=== PATIENT | male | born 1955 | race Caucasian/White ===

== ENCOUNTER 2019-07-20 10:09 | Inpatient (IN) | payer MEDICARE, OTHER ==
[~2019-07-20] VITALS: Ht 180.3 cm; Wt 102.1 kg
--- OUTSIDE RECORDS SUMMARY | 2019-07-20 12:44 | XMS ---
PreManage Notification: NORAH GR Security Legal Activity Adjudicator Events No recent Security Events currently on file CRITERIA MET - 6 ED Visits in 6 Months - [facility] - Has Care Guidelines - [facility] - 2 Visits in 30 Days CARE PROVIDERS Name Unknown Senior Living Facility Current PHONE: [phone] HOLLY GALLAGHER Nurse Practitioner: Gerontology 04/07/2019-Current PHONE: Unknown Guidelines Source: [facility] Guidelines Date: 11/24/2018 Care Recommendation: This patient has presented to the ER with 5 or more visits during a certain time period. 1.If patient presents in the emergency for non-emergent issues. It may be appropriate for this patient to seek care at an Urgent Care Center instead of the Emergency Room, please offer this alternate plan to the patient and provide list of Urgent Care Clinics. 2. Educate patient regarding the proper use of the Emergency Room.\T\nbsp; Redirect patient to PCP for care that does not require the use of the Emergency Department. 3. The patient reports not having a PCP. Give the patient a list of PCPs or refer the patient to the registered nurse hh case manager in the ER to help coordinate services. 4. If the patient presents with any type of substance abuse issues please have the ER refer the patient to substance resources. Contact the registered nurse hh case manager in the ER to help with placement. 5. If the patient presents with mental health issues please refer the patient to mental health. Have the patient speak to the registered nurse hh case manager in the ER to coordinate services. \T\nbsp; 6. Pain/Opioid Agreement: Please use the [facility] Prescription Monitoring Program for specifics related to pt\T\rsquo;s use of narcotics medications.\T\nbsp; https://secureaccess.[place].gov 7.Additional Information: Please contact your facility\T\rsquo;s Case Management department if further intervention is needed in the care of this patient. E.D. VISIT COUNT (12 MO.) 2 [facility] 21 [facility] 7 [facility] [address] [place] TOTAL 32 NOTE: Visits indicate total known visits. ED/UCC VISIT TRACKING (12 MO.) 07/20/2019 10:10 [facility] [place] TYPE: Emergency COMPLAINT: - MULTIPLE COMPLAINTS 07/15/2019 12:14 [facility] TYPE: Emergency DIAGNOSES: - Diarrhea (Adult) - Noninfective gastroenteritis and colitis, unspecified - Type 2 diabetes mellitus with hyperglycemia - Failure to Thrive - Essential (primary) hypertension 07/06/2019 05:29 [facility] TYPE: Emergency DIAGNOSES: - Patient's other noncompliance with medication regimen - Hypertension - Urinary Complaint - Unspecified fall, initial encounter - Essential (primary) hypertension 07/03/2019 10:06 [facility]IP TYPE: Emergency DIAGNOSES: - Fever, unspecified - Chest Pain - Shortness of Breath - Fever (9 Weeks To 74 Years) - Sepsis, unspecified organism - Unspecified atrial fibrillation 05/15/2019 20:19 [facility] TYPE: Emergency DIAGNOSES: - Leg Deformity - Other abnormalities of gait and mobility - Contusion of right knee, initial encounter - 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 - Fall - Unspecified fall, initial encounter 05/13/2019 11:15 [facility] TYPE: Emergency DIAGNOSES: - High Blood Sugar (Symptomatic) - shelter (current) use of insulin - Type 2 diabetes mellitus with hyperglycemia 04/13/2019 20:40 [facility] TYPE: Emergency DIAGNOSES: - Other chest pain - Chest Pain - Type 2 diabetes mellitus with hyperglycemia - 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 04/13/2019 08:17 [facility] [place] [facility] TYPE: Emergency DIAGNOSES: - Hyperglycemia, unspecified - High Blood Sugar (Symptomatic) 04/04/2019 04:12 [facility] [place] [facility] TYPE: Emergency DIAGNOSES: - Chest pain, unspecified - Chest Pain 03/21/2019 17:09 [facility] [place] [facility] TYPE: Emergency DIAGNOSES: - Hemoptysis - Dizziness - Type 2 diabetes mellitus with hyperglycemia - 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 - Coughing Up Blood 02/01/2019 15:26 [facility] TYPE: Emergency COMPLAINT: - ELEVATED BLOOD SUGAR 02/01/2019 04:32 [facility] TYPE: Emergency COMPLAINT: - DIZZY 01/25/2019 06:53 [facility] [place] [facility] TYPE: Emergency DIAGNOSES: - Headache - Hypertension - Headache (Adult - New Onset Or New Symptoms) - Dizziness 01/10/2019 05:18 [facility] [place] [facility] TYPE: Emergency DIAGNOSES: - Diarrhea (Adult) - Headache (Adult - Recurrent Or Known Dx Migraines) - Hyperglycemia, unspecified - Dizziness and giddiness - Dizziness 01/09/2019 02:10 [facility] CHIP TYPE: Emergency COMPLAINT: - dizziness 01/03/2019 20:02 [facility] TYPE: Emergency DIAGNOSES: - Hyperglycemia, unspecified - Dizziness and giddiness - Unspecified injury of head, initial encounter - Dizziness - Unspecified fall, initial encounter 12/13/2018 21:45 [facility] TYPE: Emergency DIAGNOSES: - Chest Pain - Palpitations 12/12/2018 09:24 [facility] TYPE: Emergency DIAGNOSES: - Syncope - Unstable angina - Other specified abnormal findings of blood chemistry - Hypertensive urgency - Essential (primary) hypertension - Chest Pain - chest pain, syncope 12/01/2018 08:11 [facility] TYPE: Emergency DIAGNOSES: - Multiple Falls - Essential (primary) hypertension - Palpitations - Syncope and collapse 11/15/2018 10:52 [facility] [place] [facility] TYPE: Emergency DIAGNOSES: - Elevated Blood Sugar (Asymptomatic) - Hyperglycemia, unspecified - Constipation - Hypertension (Asymptomatic) - Slow transit constipation - Elevated blood-pressure reading, without diagnosis of hyperte Plus 12 More Visits INPATIENT VISIT TRACKING (12 MO.) 07/03/2019 10:06 [facility] TYPE: Internal Medicine DIAGNOSES: - Chronic obstructive pulmonary disease, unspecified - Unspecified atrial fibrillation - Unspecified lack of expected normal physiological development - Sepsis, unspecified organism - Bacteremia - Fever, unspecified - Type 2 diabetes mellitus with hyperglycemia 10/11/2018 18:01 [facility] TYPE: Internal Medicine DIAGNOSES: - shelter (current) use of 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 - shelter (current) use of insulin - Type 2 diabetes mellitus with hyperglycemia - Syncope and collapse - Allergy status to unspecified drugs, medicaments and biologic - Chest pain, unspecified - Other chest pain - Essential (primary) hypertension 09/13/2018 08:20 [facility] TYPE: General Medicine DIAGNOSES: - 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
[2019-07-20] MEDS ORDERED: HYDRALAZINE HCL25 MG PO (13:34)
[2019-07-20] MEDS ORDERED: PROCARDIA XL60 MG PO (13:36)
[2019-07-20] MEDS ORDERED: COREG6.25 MG PO (13:37)
[2019-07-20] MEDS ORDERED: HUMALOG100 UNIT/2 SUB-Q (13:41)
[2019-07-20] MEDS ORDERED: ABILIFY5 MG PO (13:42)
[2019-07-20] MEDS ORDERED: FLOMAX0.4 MG PO (13:43)
[2019-07-20] MEDS ORDERED: GLUCOPHAGE500 MG PO (13:44)
[2019-07-20] MEDS ORDERED: ZESTRIL40 MG PO ×2 (13:44→13:45)
[2019-07-20] MEDS ORDERED: LEVEMIR FL100 UNIT/2 SUB-Q (13:46)
[2019-07-20] MEDS ORDERED: OMEPRAZOLE20 MG PO (13:47)
[2019-07-20] MEDS ORDERED: ATORVASTATIN CA40 MG PO (13:48)
--- NOTE | 2019-07-20 13:50 | NUR ---
PATIENT ARRIVED TO CCU ROOM 127 VIA STRETCHER. PATIENT TOLERATED TRANSFERRING HIMSELF FROM THE STRETCHER TO THE BED. PATIENT ARRIVE WITHOUT DILTIAZEM GTT GOING YET. WILL START GTT. PATIENT REQUESTING TO ORDER LUNCH. NO OTHER NEEDS AT THIS TIME. WILL CONTINUE TO CLSOELY MONITOR.
--- NOTE | 2019-07-20 15:15 | NUR ---
PATIENTS DILTIAZEM GTT STOPPED AT THIS TIME D/T CONTROLLED HR IN THE 70'S. PATIENTS BLOOD PRESSURE 95/58 AT THIS TIME. WILL CONTINUE TO [facility] MONITOR.
--- NOTE | 2019-07-20 16:29 | NUR ---
CALLED MD KC. PATIENT HAD A 7.5 SECOND PAUSE WITH 1 BEAT INBETWEEN. PATIENT WAS SLEEPING DURING THIS INCIDENT. WOKE PATIENT HE DENEIS ANY ISSUES EXCEPT STILL FEELING WEAK JUST THE SAME WHEN HE WAS ADMITTED. PATIENT WAS TAKEN OFF THE DILTIAZEM GTT AT 1515 D/T HRS CONTROLLED IN THE 70'S AND PATIENTS BLOOD PRESSURE DECRESING TO THE 90'S SYTOLIC. ONCE OFF THE GTT HIS PRESSSURES WERE BACK TO THE 115'S SYSTOLIC. PATIENT ATE 100% OF HIS MEAL. PATIENT DENEIS ANY OTHER NEEDS AT THIS TIME. AWAITING NEW ORDERS. WILL CONTINUE TO CLOSELY MONITOR.
--- NOTE | 2019-07-20 16:41 | NUR ---
PATIENTS BLOOD SUGAR 238.
--- NOTE | 2019-07-20 17:56 | NUR ---
ASSISTED PATIENT UP TO THE BEDSIDE TO VOID. PATIENT STANDS WELL AND APPEARS STABLE WITH STAND-BY ASSIST. PATIENT BACK TO BED. DINNER ORDERED. NO OTHER NEEDS AT THIS TIME. WILL CONTINUE TO CLOSELY MONITOR.
--- NOTE | 2019-07-20 21:22 | NUR ---
IN TO SEE PT, AWAKENS EASILY BUT WILL FALL BACK TO SLEEP. BS 189, GIVEN HS 25UNITS LANTUS AND 4UN HUMULOG INSULIN. PT REQUESTED SANDWICH BUT FELL BACK TO SLEEP. HR 80-90'S.
--- NOTE | 2019-07-20 23:28 | NUR ---
AWAKENED FOR MEDS. DENIES NEED TO VOID AT THIS TIME. REQUESTING SANDWICH, GIVEN WITH SMALL GLASS JUICE.
--- NOTE | 2019-07-20 23:56 | NUR ---
CALLED NURSE, NEEDING VOID. STANDBY ASSSIST FOR PT TO STAND TO VOID. HAD BEEN INC OF URINE, ATTENDS CHANGED. ZAIDA WELL. READY TO GO BACK TO SLEEP.
--- NOTE | 2019-07-21 01:05 | NUR ---
HANDOFF REPORT RECEIVED FROM EVE NOGUERA, ASSUMED CARE OF pt.
--- NOTE | 2019-07-21 01:38 | NUR ---
pt RESTING IN BED WITH EYES CLOSED. SNORING. RR 16. LIGHTS OFF IN ROOM.
--- NOTE | 2019-07-21 01:51 | NUR ---
CALL LIGHT ANSWERED. C/O TONGUE SWELLING "I'M THIRSTY, NEED WATER". ICE WATER PROVIDED. NO FACIAL OR TONGUE SWELLING NOTED. pt DENIES SOB, NO DIFFICULTY SWALLOWING. CALL LIGHT IN REACH.
--- NOTE | 2019-07-21 04:06 | NUR ---
CALL LIGHT ANSWERED. DIET SPRITE PROVIDED. ASSESSMENT COMPLETE. pt AFEBRILE. DENIES TOILETING NEEDS. ATTENDS DRY. IVF INFUSING WNL ORDERED. CALL LIGHT IN REACH.
--- NOTE | 2019-07-21 05:38 | NUR ---
CALL LIGHT ANSWERED. SBA TO VOID AND BACK IN BED. ASSISTED TO REPOSITION. NO ADDITIONAL REQUESTS.
--- NOTE | 2019-07-21 06:14 | NUR ---
TOWN PLANNER IN pt ROOM. NEW BAG IVF INFUSING WNL ORDERED. BREAKFAST ORDER TAKEN. pt ON PHONE WITH GRANDMOTHER TOLD HER THAT HE IS AT [facility] FOR AFIB. HE TELLS THIS RN THAT HE WASN'T SUPPOSED TO BE IN [place] OR WITH HIS FRIEND THAT HAS LEFT HIM BEFORE. CALL LIGHT IN REACH. pt HAS NO ADDITIONAL REQUESTS AT THIS TIME.
--- NOTE | 2019-07-21 06:16 | NUR ---
pt RESTED WELL THIS SHIFT. APNIC BREATHING NOTED WITH SLEEP. SPO2 WNL ON RA. HR AFIB, RATE CONTROLLED. IVF INFUSING WNL ORDERED. SBA TO SIDE OF BED FOR QS VOIDS. ONE EPISODE OF INCONTINENCE OF URINE. NO BMS NOTED THIS SHIFT. CONTACT PRECUATIONS, CDIFF PENDING.
--- NOTE | 2019-07-21 07:30 | NUR ---
PATIENT SHIFT REPORT RECIEVED FROM RESEARCH QUALITY ASSURANCE ANALYST RN. PATIENT RESTING IN BED AT THIS TIME AND CALLS APPROPRIATELY. WILL CONTINUE TO CLOSELY MONITOR.
[2019-07-21] MEDS ORDERED: ELIQUIS5 MG PO (07:54)
--- NOTE | 2019-07-21 08:01 | NUR ---
Received text from Louie Jones. They are looking for transportation [facility] who was hospitalized after [place] and [place]. Suggested they try [place] transport, but I don't think they run on the weekend, call Mary [facility] Last and request auth for taxi transport to [place] which is around $100.00, or discharge to the street and allow him to find his own transportion. Sup states friends will not return and pick him up. I also suggested they [facility] as they may know someone who would be willing to transport or pay for transportion to [facility].
--- NOTE | 2019-07-21 08:30 | NUR ---
MD KC IN TO SEE PATIENT. PER MD KC PATIENT IS GOOD TO DISCHARGE HOME. WILL WORK ON PLAN TO DISCHARGE. PATIENT DENEIS ANY OTHER NEEDS AT THIS TIME. ASSESSMENT COMPLETED. PATIENT BREATH SOUNDS CLEAR AND PATIENT ON ROOM AIR. PATIENT BOWEL TONES ACTIVE. PATIENT DENIES SOB OR PALPITATIONS AND HIS HR IS WELL UNCONTROLLED AT THIS TIME. WILL CONTINUE TO CLOSELY MONITOR.
--- NOTE | 2019-07-21 10:30 | NUR ---
[facility] CONTINUING TO WORK ON DISCHARGE PLAN. NO OTHER NEEDS AT THIS TIME. WILL CONTINUE TO CLOSELY MONITOR.
[2019-07-21] MEDS ORDERED: VANCOCIN HCL125 MG PO (11:10)
--- NOTE | 2019-07-21 11:39 | EKG ---
[facility] [address] [facility] [place], [place] [address] Signed Atrial fibrillation with rapid ventricular response Moderate voltage criteria for LVH, may be normal variant ST \T\ T wave abnormality, consider inferolateral ischemia Abnormal ECG No previous ECGs available Confirmed by JAVY KC MD ([id number]) on 07/21/2019 11:39:41 AM Electronically Signed By: JAVY KC MD 07/21/19 1139 PATIENT NAME: GRNORAH Electrocardiogram DATE OF : 53 PHYSICIAN: JAVY KC MD REPORT #: [id number] REPORT IS CONFIDENTIAL AND NOT TO BE RELEASED WITHOUT AUTHORIZATION
--- NOTE | 2019-07-21 11:59 | NUR ---
THIS RN HAS BEEN WORKING ON PATIENTS DISCHARGE. PATIENT STATES HE HAS NO FAMILY OR FRIENDS TO GIVE HIM A RIDE HOME. STAFF AND GEOCHEMICAL LABORATORY TECHNICIAN HAVE TRIED ALL OPTIONS AND STAFF ARE UNABLE TO GET HIM BACK TO [place]. VIOLETA IS AGREEABLE TO GOING BACK TO THE [facility] AND TRY AND FIGURE OUT A RIDE HOME. WILL CONTINUE TO WOKR ON HIS DISCHARGE. NO OTHER NEEDS AT THIS TIME.
--- NOTE | 2019-07-21 13:00 | NUR ---
FULL REPORT RECIEVED FROM FINESSE PRADO, ALL QUESTIONS ANSWERED. PT CARE TRANSFERED TO THIS RN.
--- NOTE | 2019-07-21 13:12 | NUR ---
PATIENT IS DEVELOPLY DELAYED AND CARES FOR HIMSELF AT HOME ALLONG WITH THE HELP OF A CAREGIVER WHO COMES IN 3XWEEK [facility]ROUGH [facility] THE [facility]. CALLED RESIDENT PHYSICIAN IN RADIOLOGYPROMOTIONAL MARKETING ANALYST THIS AM AND THEY ARE UNABLE TO CROSS STATE LINES. PATIENT STATES "I HAVE NO MONEY TO GET HOME". IF I GO BACK TO [place] NO ONE CAN GET ME AND MY AFIB WILL GET OUT OF CONTROL AGAIN AND ILL BE BACK TO THE ER AGAIN". PATIENT FINALLY AGREED TO ALLOW STAFF TO TALK TO HIS "GRANDMA" AND SHE TOLD HIM HE GOT HIMSELF INTO THIS AND HE NEEDS TO GET HIMSELF OUT". NO ONE CAN COME GET HIM. HE WAS HERE GAMBLING AND HIS FRIEND LEFT HIM BECAUSE HE MADE HIM MAD. PATIENT HAS NO MEANS OF ACCESS TO GET HOME. SPOKE WITH THE PATIENT AND STATED WE WILL COVER A RIDE HOME FOR HIM THIS ONE AND ONLY TIME. PATIENT EDUCATED ON HIS SAFETY AND HE SHOULD NEVER LEAVE HOME WITHOUT HIS MEDICATIONS AND A SAFE RIDE HOME. PATIENT IS AGREEABLE TO PLAN OF CARE AND IS THANKFUL TO GET BACK HOME. ANNAMARIE PRADO WILL RESUME CARE AT THIS TIME AND GET HIM DISCHARGED.
--- NOTE | 2019-07-21 13:45 | NUR ---
DC'D BOTH PT IV SITES, TIPS OF CATH INTACT, SITES ARE WNL. PT DENIES PAIN AT EITHER SITE. PT DENIES PAIN, NAUSEA, AND SOB IN GENERAL. PT ASSISTED TO PUT ON HIS OWN CLOTHES. PT ASSISTED TO WHEELCHAIR. ALL PERSONAL BELONGINGS, DC INSTRUCTIONS, AND NEW PERSCRIPTION RETURNED TO PT. TOOK PT OUT TO THE FRONT WITH A [place] TICKET TO RIDE HOME TO [place]. PT ALERT AND ORIENTED X4, COOPERATIVE AND POLITE. PT LEFT WITH SECURITY STAFF TO ASSIST PT INTO [place] ONCE IT ARRIVES. GENIE IS ABLE AND WILLING TO HELP PT.
== END 2019-07-21 13:54 | disposition home or self-care (01) | DRG 309 ==
LOC: ED 10:09 → CCU 12:50
PROVIDERS: ADMIT Internal Medicine
DX: I48.21 Permanent atrial fibrillation (principal); A04.72 Enterocolitis due to Clostridium difficile, not specified as recurrent; E86.0 Dehydration; I10 Essential (primary) hypertension; E11.65 Type 2 diabetes mellitus with hyperglycemia; E78.5 Hyperlipidemia, unspecified; N40.0 Benign prostatic hyperplasia without lower urinary tract symptoms; G47.33 Obstructive sleep apnea (adult) (pediatric); K21.9 Gastro-esophageal reflux disease without esophagitis; R62.50 Unspecified lack of expected normal physiological development in childhood; F32.9 Major depressive disorder, single episode, unspecified; Z20.828 Contact with and (suspected) exposure to other viral communicable diseases; Z88.8 Allergy status to other drugs, medicaments and biological substances; Z79.01 Long term (current) use of 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; Z91.19 Patient's noncompliance with other medical treatment and regimen; Z86.73 Personal history of transient ischemic attack (TIA), and cerebral infarction without residual deficits; Z86.711 Personal history of pulmonary embolism; Z79.4 Long term (current) use of insulin; Z79.899 Other long term (current) drug therapy
CPT/HCPCS: 51701; 80053; 81001; 83036; 83630; 83690; 83735; 85025; 85610; 85730; 87045; 87046; 87177; 87209; 87324; 87449; 87493; 93005; 93010; 99285-25; C9803; G0480; J1815; J3475; J7030; J7121; U0002

== ENCOUNTER 2019-09-09 22:28 | Emergency (ER) | payer MEDICARE ==
[~2019-09-09] VITALS: Ht 180.3 cm; Wt 96.2 kg
--- OUTSIDE RECORDS SUMMARY | ~2019-09-09 | XMS | Encounter Summary ---
Demographics + + + | Address | [address] | | | [place] [address] | + + + | Home Phone | | + + + | Preferred Language | Unknown | + + + | Marital Status | | + + + | Christian Affiliation | 1027 | + + + | Race | Unknown | + + + | Ethnic Group | Unknown | + + + Author + + + | Author | [facility] | | | and [place] | + + + | Organization | [facility] | | | and [place] | + + + | Address | Unknown | + + + | Phone | Unavailable | + + + Support + + + + + | Name | Relationship | Address | Phone | + + + + + | Sammi Kohler | ECON | [place] [address] | | + + + + + Care Team Providers + +------+ + | Care Operations Asst Name | Role | Phone | + +------+ + | Holly Pack NP | PCP | | + +------+ + Reason for Visit + + + | Reason | Comments | + + + | Chest Pain | | + + + | Urinary Frequency | | + + + Encounter Details +--------+ + + + + | Date | Type | Department | Care Team | Description | +--------+ + + + + | 09/06/ | Emergency | [facility] | Breanne Hurtado, | Chest discomfort | | 2019 | | MEDICAL CENTER | DO [address] | (Primary Dx); | | | | EMERGENCY CENTER | [place] [address] | Urinary frequency; | | | | [address] | [phone] | Type 2 diabetes | | | | [place], [place] | | mellitus with | | | | [address] | | hyperglycemia, with | | | | [phone] | | long-term current | | | | | | use of insulin (HCC) | +--------+ + + + + Social History + +-------+ +--------+------+ | Tobacco Use | Types | Packs/Day | Years | Date | | | | | Used | | + +-------+ +--------+------+ | Never Smoker | | | | | + +-------+ +--------+------+ + +---+---+---+ | Smokeless Tobacco: | | | | | Never Used | | | | + +---+---+---+ + + +---------+ + | Alcohol Use | Drinks/Week | oz/Week | Comments | + + +---------+ + | Not Currently | | | Alcoholic | | | | | Drinks/day: | | | | | occassional | + + +---------+ + + + + | Sex Assigned at | Date Recorded | | | | + + + | Not on file | | + + + documented as of this encounter Last Filed Vital Signs + + + + + | Vital Sign | Reading | Time Taken | Comments | + + + + + | Blood Pressure | 202/88 | 09/07/2019 9:00 AM | | | | | PDT | | + + + + + | Pulse | 85 | 09/07/2019 9:00 AM | | | | | PDT | | + + + + + | Temperature | 36.3 C (97.4 F) | 09/07/2019 6:37 AM | | | | | PDT | | + + + + + | Respiratory Rate | 26 | 09/07/2019 9:00 AM | | | | | PDT | | + + + + + | Oxygen Saturation | 95% | 09/07/2019 9:00 AM | | | | | PDT | | + + + + + | Inhaled Oxygen | - | - | | | Concentration | | | | + + + + + | Weight | 100.7 kg (222 lb) | 09/07/2019 6:37 AM | | | | | PDT | | + + + + + | Height | 180.3 cm (5' 11") | 09/07/2019 6:37 AM | | | | | PDT | | + + + + + | Body Mass Index | 30.96 | 09/07/2019 6:37 AM | | | | | PDT | | + + + + + documented in this encounter Functional Status + + + + | Functional Status | Response | Date of Assessment | + + + + | Are you deaf or do you have serious | No | 07/23/2019 | | difficulty hearing? | | | + + + + | Are you blind or do you have serious | No | 07/23/2019 | | difficulty seeing, even when wearing | | | | glasses? | | | + + + + | Do you have serious difficulty walking or | No | 07/23/2019 | | climbing stairs? (5 years old or older) | | | + + + + | Do you have difficulty dressing or bathing? | No | 07/23/2019 | | (5 years old or older) | | | + + + + | Because of a physical, mental, or emotional | Yes | 07/23/2019 | | condition, do you have difficulty doing | | | | errands alone such as visiting a doctor's | | | | office or shopping? [15 years old or | | | | older)] | | | + + + + + + + + | Cognitive Status | Response | Date of Assessment | + + + + | Because of a physical, mental, or emotional | Yes | 07/23/2019 | | condition, do you have serious difficulty | | | | concentrating, remembering, or making | | | | decisions? (5 years old or older) | | | + + + + documented as of this encounter Discharge Instructions AttachmentsThe following attachments cannot be sent through Care Everywhere.Diabetes, Long- Term Complications (Sammarinese)Chest Pain, Uncertain Cause (Sammarinese)documented in this encounte r Medications at Time of Discharge + + + +---------+ + + | Medication | Sig | Dispensed | Refills | Start | End Date | | | | | | Date | | + + + +---------+ + + | albuterol 90 | Inhale 2 puffs into | 1 | 0 | 08/21/19 | | | mcg/puff | the lungs every 6 | Inhaler | | 20 | | | inhalerIndications: | hours as needed for | | | | | | Chronic obstructive | Wheezing. | | | | | | pulmonary disease, | | | | | | | unspecified COPD | | | | | | | type ([facility]) | | | | | | + + + +---------+ + + | ARIPiprazole | TAKE ONE TABLET BY | 90 | 3 | 09/09/19 | | | (ABILIFY) 5 mg | MOUTH DAILY | tablet | | 20 | | | tablet | | | | | | + + + +---------+ + + | atorvaSTATin | Take 1 tablet by | 30 | 11 | 12/27/19 | | | (LIPITOR) 40 mg | mouth nightly. | tablet | | 19 | | | tabletIndications: | | | | | | | Type 2 diabetes | | | | | | | mellitus with | | | | | | | diabetic | | | | | | | polyneuropathy, with | | | | | | | long-term current | | | | | | | use of insulin ([facility]) | | | | | | + + + +---------+ + + | Blood Glucose | Dispense brand per | 1 each | 0 | 04/18/19 | | | Monitoring Suppl | patient preference | | | 20 | | | (BLOOD GLUCOSE | | | | | | | MONITOR SYSTEM) | | | | | | | w/Device | | | | | | | KITIndications: Type | | | | | | | 2 diabetes mellitus | | | | | | | with diabetic | | | | | | | polyneuropathy, with | | | | | | | long-term current | | | | | | | use of insulin (HCC) | | | | | | + + + +---------+ + + | Blood Pressure | Dispense as | 1 each | 0 | 06/04/19 | | | KITIndications: | insurance allows to | | | 20 | | | Essential | check Blood Pressure | | | | | | hypertension | one time daily each | | | | | | | day. | | | | | + + + +---------+ + + | | Inhale 2 puffs into | 1 | 0 | 08/21/19 | | | budesonide-formotero | the lungs 2 times | Inhaler | | 20 | 1 | | l (SYMBICORT) | daily. | | | | | | 160-4.5 mcg/puff | | | | | | | inhalerIndications: | | | | | | | Chronic obstructive | | | | | | | pulmonary disease, | | | | | | | unspecified COPD | | | | | | | type ([facility]) | | | | | | + + + +---------+ + + | docusate-senna | Take 2 tablets by | 60 | 0 | 07/26/19 | | | (SENOKOT-S) 50-8.6 | mouth 2 times daily | tablet | | 20 | | | mg per tablet | | | | | | + + + +---------+ + + | Glucose Blood | For blood sugar | 400 | 3 | 04/18/19 | | | (BLOOD GLUCOSE TEST | testing 4 times | each | | 20 | | | STRIPS) | daily | | | | | | STRPIndications: | | | | | | | Type 2 diabetes | | | | | | | mellitus with | | | | | | | diabetic | | | | | | | polyneuropathy, with | | | | | | | long-term current | | | | | | | use of insulin (HCC) | | | | | | + + + +---------+ + + | hydrALAZINE | Take 1 tablet by | 60 | 11 | 08/21/19 | | | (APRESOLINE) 25 mg | mouth 2 times daily. | tablet | | 20 | | | tabletIndications: | | | | | | | Essential | | | | | | | hypertension | | | | | | + + + +---------+ + + | insulin detemir | Inject 45 Units | 12 mL | 3 | 05/30/19 | | | (LEVEMIR FLEXTOUCH) | under the skin | | | 20 | | | 100 units/mL | nightly. | | | | | | injection | | | | | | | (pen)Indications: | | | | | | | Type 2 diabetes | | | | | | | mellitus with | | | | | | | hyperglycemia, with | | | | | | | long-term current | | | | | | | use of insulin (HCC) | | | | | | + + + +---------+ + + | insulin lispro | Inject 20 Units | 12 mL | 3 | 05/30/19 | | | (HUMALOG KWIKPEN) | under the skin 3 | | | 20 | | | 100 units/mL | times daily (with | | | | | | injection | meals). | | | | | | (pen)Indications: | | | | | | | Type 2 diabetes | | | | | | | mellitus with | | | | | | | hyperglycemia, with | | | | | | | long-term current | | | | | | | use of insulin (HCC) | | | | | | + + + +---------+ + + | Insulin Pen Needle | For insulin | 400 | 3 | 07/23/19 | | | (BD PEN NEEDLE KYAW | administration 4 | each | | 20 | | | U/F) 32G X 4 MM | times daily | | | | | | MISCIndications: | | | | | | | Type 2 diabetes | | | | | | | mellitus with | | | | | | | diabetic | | | | | | | polyneuropathy, with | | | | | | | long-term current | | | | | | | use of insulin (HCC) | | | | | | + + + +---------+ + + | Lancets (ACCU-CHEK | 1 each by Other | 400 | 3 | 04/18/19 | | | MULTICLIX) | route 4 times daily. | each | | 20 | | | MISCIndications: | | | | | | | Type 2 diabetes | | | | | | | mellitus with | | | | | | | hyperglycemia, with | | | | | | | long-term current | | | | | | | use of insulin (HCC) | | | | | | + + + +---------+ + + | lisinopril | Take 1 tablet by | 30 | 11 | 03/27/19 | | | (PRINIVIL,ZESTRIL) | mouth Daily. | tablet | | 20 | | | 40 MG tablet | | | | | | + + + +---------+ + + | meclizine | Take 25 mg by mouth | | 0 | | | | (ANTIVERT) 25 mg | as needed. | | | | | | tablet | | | | | | + + + +---------+ + + | metoprolol | TAKE ONE TABLET BY | 180 | 3 | 09/09/19 | | | succinate | MOUTH TWICE DAILY | tablet | | 20 | | | (TOPROL-XL) 50 mg 24 | | | | | | | hr tablet | | | | | | + + + +---------+ + + | NIFEdipine (ADALAT | Take 1 tablet by | | 0 | 07/22/19 | | | CC) 60 MG 24 hr | mouth Daily. | | | 20 | | | tablet | | | | | | + + + +---------+ + + | psyllium, sugar | Take 1 packet by | | 0 | 08/21/19 | | | free, (METAMUCIL | mouth Daily. | | | 20 | | | FIBER) | | | | | | | packetIndications: | | | | | | | Irregular bowel | | | | | | | habits | | | | | | + + + +---------+ + + | warfarin | Take by mouth Daily | | 0 | | | | (COUMADIN) 5 mg | 7.5 mg every Mon, | | | | | | tablet | Mon; 5 mg all | | | | | | | other days . | | | | | + + + +---------+ + + | warfarin | Take 1 tab po daily | 30 | 11 | 08/07/19 | | | (COUMADIN) 5 mg | or as directed by | tablet | | 20 | | | tabletIndications: | coumadin clinic | | | | | | Longstanding | based on INR. | | | | | | persistent atrial | | | | | | | fibrillation (HCC) | | | | | | + + + +---------+ + + | ARIPiprazole | Take 1 tablet by | 30 | 4 | 05/18/19 | | | (ABILIFY) 5 mg | mouth Daily. | tablet | | 20 | 0 | | tablet | | | | | | + + + +---------+ + + | metoprolol | Take 1 tablet (50 mg | 60 | 0 | 07/26/19 | | | succinate | total) by mouth 2 | tablet | | 20 | 0 | | (TOPROL-XL) 50 mg 24 | times daily | | | | | | hr tablet | | | | | | + + + +---------+ + + documented as of this encounter ED Notes Nara Vera RN - 09/07/2019 8:30 AM PDTMD notified of BP prior to discharging roberto ent. Hydralazine will be ordered. Breanne Barber DO - 09/07/2019 6:45 AM PDT [facility] Department of Emergency Medicine 09/08/2019 6:45 AM PDT No flowsheet data found. History of Present Illness Patient Identification Norah Guzman is a 63 y.o. male. Patient information was obtained from patient History/Exam limitations: none. Patient presented to the Emergency Department by: Ambulance ([id number]) Chief Complaint Chief Complaint Patient presents with Chest Pain Urinary Frequency 63 y.o. male with history of DM, stroke and pulmonary embolism on Coumadin presents to the ED complaining of chest pain as well as urinary frequency. Onset of symptoms was about 2 we eks ago, with a waxing and waning course since that time. The patient describes the symptoms as moderate. The patient reports drinking fluids worsens symptoms, and nothing improves sym ptoms. He feels like he cannot empty his bladder fast enough. Care prior to arrival consis tasia of rest, with no relief. The patient also complains of chest discomfort, mild shortness of breath and palpitations w hich she has had for about a month. Patient denies lightheadedness, back pain, fevers, sore throat or cough. The patient lives in his own apartment and has caregivers come to his home 3 times a week. He eats he is allowed no more than 4-1/2 hours of nursing/caregiver monitoring per week. PCP: Holly Pack NP Past Medical History: Diagnosis Date Acute pulmonary embolism ([facility]) 10/14/2017 Anxiety ARF (acute renal failure) ([facility]) 03/02/2013 Atrial fibrillation (HCC) Basal cell carcinoma 09/26/2012 arm and back COPD (chronic obstructive pulmonary disease) ([facility]) 03/02/2013 hypoxemia on 2 lts nc Depression Development delay Diabetes mellitus type II DVT (deep venous thrombosis) ([facility]) 03/29/2018 Facial droop 07/08/2013 GIB (gastrointestinal bleeding) 03/02/[address] Nur, rectal ulcers, nodule of GE junction Hypercholesterolemia 07/08/2013 Hyperlipidemia Hypertension shelter (current) use of 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 Obesity, Class I, BMI 30-34.9 07/08/2013 WARD (obstructive sleep apnea) 08/11/2012 does not use CPAP because of the noise Other chronic pain Renal failure Stroke (HCC) TIA (transient ischemic attack) Unspecified visual disturbance reading glasses Past Surgical History: Procedure Laterality Date ABDOMEN SURGERY CHOLECYSTECTOMY CHOLECYSTECTOMY, LAPAROSCOPIC 09/12/2012 Procedure: LAPAROSCOPIC - CHOLECYSTECTOMY; Surgeon: Jevon Vargas DO; Location: [facility] MAIN OR; Service: General; 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; COLONOSCOPY COLONOSCOPY 03/04/2013 Procedure: COLONOSCOPY; Surgeon: Howie Gibson MD; Location: [facility] ENDOSCOPY; Service: Gastroen terology; 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; HERNIA REPAIR 07/03/2013 Procedure: LAPAROSCOPIC - HERNIA - INCISIONAL; Surgeon: Jevon Vargas DO; Location: [facility] MAIN OR; Service: General; 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; KNEE SURGERY rt knee, patella LEG SURGERY LLE OTHER SURGICAL HISTORY UNLISTED PROCEDURE ARTHROSCOPY OTHER SURGICAL HISTORY Left 05/05/2014 SKIN LESION EXCISION - Procedure: EXCISION - LESION - FROZEN SECTION; Surgeon: Sy murcia MD; Location: [facility] MAIN OR; Service: Plastics; Laterality: Left; forearm SKIN BIOPSY SKIN CANCER EXCISION Left 10/10/2012 Procedure: EXCISION - SKIN CANCER; Surgeon: Sy Fierro MD; Location: [facility] MAIN OR; Service: Plastics; Laterality: Left; upper arm and upper back w/frozen section UPPER GASTROINTESTINAL ENDOSCOPY UPPER GASTROINTESTINAL ENDOSCOPY 03/03/2013 Procedure: ESOPHAGOGASTRODUODENOSCOPY; Surgeon: Howie Gibson MD; Location: [facility] ENDOSCOPY; Se rvice: Gastroenterology; 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; Prior to Admission medications Medication Sig Taking? albuterol 90 mcg/puff inhaler Inhale 2 puffs into the lungs every 6 hours as needed for Whe ezing. ARIPiprazole (ABILIFY) 5 mg tablet Take 1 tablet by mouth Daily. atorvaSTATin (LIPITOR) 40 mg tablet Take 1 tablet by mouth nightly. Blood Glucose Monitoring Suppl (BLOOD GLUCOSE MONITOR SYSTEM) w/Device KIT Dispense brand p patient preference Blood Pressure KIT Dispense as insurance allows to check Blood Pressure one time daily each day. budesonide-formoterol (SYMBICORT) 160-4.5 mcg/puff inhaler Inhale 2 puffs into the lungs 2 times daily. docusate-senna (SENOKOT-S) 50-8.6 mg per tablet Take 2 tablets by mouth 2 times daily Glucose Blood (BLOOD GLUCOSE TEST STRIPS) STRP For blood sugar testing 4 times daily hydrALAZINE (APRESOLINE) 25 mg tablet Take 1 tablet by mouth 2 times daily. insulin detemir (LEVEMIR FLEXTOUCH) 100 units/mL injection (pen) Inject 45 Units under the skin nightly. insulin lispro (HUMALOG KWIKPEN) 100 units/mL injection (pen) Inject 20 Units under the ski n 3 times daily (with meals). Insulin Pen Needle (BD PEN NEEDLE KYAW U/F) 32G X 4 MM MISC For insulin administration 4 ti mes daily Lancets (ACCU-CHEK MULTICLIX) MISC 1 each by Other route 4 times daily. lisinopril (PRINIVIL,ZESTRIL) 40 MG tablet Take 1 tablet by mouth Daily. meclizine (ANTIVERT) 25 mg tablet Take 25 mg by mouth as needed. metoprolol succinate (TOPROL-XL) 50 mg 24 hr tablet Take 1 tablet (50 mg total) by mouth 2 times daily NIFEdipine (ADALAT CC) 60 MG 24 hr tablet Take 1 tablet by mouth Daily. psyllium, sugar free, (METAMUCIL FIBER) packet Take 1 packet by mouth Daily. warfarin (COUMADIN) 5 mg tablet Take by mouth Daily 7.5 mg every Mon, Wed, Fri; 5 mg all ot her days . warfarin (COUMADIN) 5 mg tablet Take 1 tab po daily or as directed by coumadin clinic based on INR. Allergies Allergen Reactions Nitroglycerin Swelling Tongue swelling Vitamin B12 Rash Rash Immunization History Administered Date(s) Administered INFLUENZA 65 Y OR >, TRIVALENT HIGH-DOSE 11/07/2018 INFLUENZA PF QUAD(PED/ADOL/ADULT),PSKT or VIAL 12/16/2014, 02/07/2018 INFLUENZA PF TRIVALENT(PED/ADOL/ADULT), PSKT 11/09/2011, 10/28/2016 INFLUENZA TRIV W/PRES(PED/ADOL/ADULT),MULTIDOSE 11/15/2013 PNEUMOCOCCAL CONJUGATE 13-VALENT (PCV13) 11/07/2018 TDAP, (ADOL/ADULT) 12/16/2014 Social History Socioeconomic History Marital status: Spouse name: Not on file Number of children: 1 Years of education: s. college Highest education level: Not on file Occupational History Not on file Social Needs Financial resource strain: Not on file Food insecurity Worry: Not on file Inability: Not on file Transportation needs Medical: Not on file Non-medical: Not on file Tobacco Use Smoking status: Never Smoker Smokeless tobacco: Never Used Substance and Sexual Activity Alcohol use: Not Currently Comment: Alcoholic Drinks/day: occassional Drug use: Never Comment: Drug use: No Sexual activity: Not on file Lifestyle Physical activity Days per week: Not on file Minutes per session: Not on file Stress: Not on file Relationships Social connections Talks on phone: Not on file Gets together: Not on file Attends quaker service: Not on file Active member of club or organization: Not on file Attends meetings of clubs or organizations: Not on file Relationship status: Not on file Intimate partner violence Fear of current or ex partner: Not on file Emotionally abused: Not on file Physically abused: Not on file Forced sexual activity: Not on file Other Topics Concern Not on file Social History Narrative Lives alone x 1 wk, moved from [facility], , 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 2 falls in the last 6 months. Family History Problem Relation Age of Onset Heart disease Father Heart disease Sister Diabetes, NIDDM Sister Other (see comment) Brother Heart Problems Review of Systems (limited due to developmental delay, simple speech with a lisp) constitutional: Negative for fever, chills Negative for fatigue Eyes: Negative for vision changes or photophobia Nose: Negative for congestion Throat: Negative for sore throat or swelling CV/Resp: Positive positive for chest pain Positive for [id number] Negative for cough GI: Positive for abdominal pain Negative for nausea Negative for vomiting Negative for constipation Negative for diarrhea Negative for black or bloody stools : Positive for urinary frequency Positive for pain with urination Musculoskeletal: Negative for back pain Negative for neck pain or stiffness. Skin: Negative for rash Neuro/Psych: Negative for headache All other systems reviewed and negative except as noted. Physical Exam Temp: 36.3 C (97.4 F) Pulse: 81 SpO2: 97 % Resp: 18 BP: (!) 189/93 Vital signs interpretation: Blood pressure General: Alert, in no apparent distress. He does not appear to be in any pain. HEENT: Normal inspection, PERRLA, non-icteric, EOM's intact Ears normal Nose normal Pharynx normal, mucous membranes are moist. Neck: Normal inspection Supple, no lymphadenopathy Non-tender to palpation. Cardiovascular: Rate normal, rhythm normal No murmurs, clicks or rubs Heart sounds are easily auscultated Chest non-tender to palpation Respiratory: Normal work of breathing Breath sounds equal bilaterally No rales, wheezing or rhonchi Abdomen: Soft, obese, mildly distended, mild lower abdominal tenderness. Non-distended Normal bowel sounds No guarding or rebound No masses. No pulsatile masses. Back: Normal inspection, no CVA tenderness or spinal tenderness Skin: Color normal Warm and dry No rash Extremities: No swelling or pitting edema. No calf tenderness or palpable cords. Neuro: Alert, no AMS, speech is clear. CN II-XII intact No gross motor/sensory deficits Medical Decision Making and Emergency Department Course ED Department Course Well-appearing patient with multiple complaints will screen for ACS, dysrhythmia, anemia, e lectrolyte abnormality, urinary tract infection among others. His condition is stable at th is time. Medications hydrALAZINE (APRESOLINE) injection 20 mg (20 mg Intravenous Given 09/07/19 0845) Medical Decision Making as of Sep 07 1901 Sat Sep 07, 2019 0910 Hyperglycemic but not in DKA Glucose(!): 269 Discharge Patient reevaluation. Patient is stable and feeling better at this time. He has eaten and has no complaints currently. I discussed all ED results and my clinical impression with th e patient. We discussed the emergent signs and symptoms that would necessitate a return to ED. The patient voices understanding and agrees with the plan will follow-up with his PCP AP for further outpatient testing as deemed necessary. All questions and concerns addressed to the best of my ability. The patient agrees to return to the ED immediately if any probl ems or concerns. Records Reviewed Nursing notes were reviewed for chief complaint, medications, clinical presentation and vi nicole signs. Old ED records were reviewed as available (Using the electronic record system of [facility], with regard to the past medical/surgical history, previous medications, and all ergies). Laboratory Evaluation Results Procedure Component Value Ref Range Date/Time B Type Natriuretic Peptide [[id number]] Collected: 09/07/19724 Order Status: Completed Specimen: Blood Updated: 09/07/19 0801 BNP 34.86 0 - 100 pg/mL Comprehensive Metabolic Panel [[id number]] (Abnormal) Collected: 09/07/19725 Order Status: Completed Specimen: Blood Updated: 09/07/19 0759 Na 139 135 - 145 mmol/L K 3.5 3.5 - 4.9 mmol/L Cl 105 99 - 109 mmol/L CO2 26 23 - 32 mmol/L Anion Gap 12 5 - 20 mmol/L Glucose 269 65 - 99 mg/dL BUN 13 8 - 25 mg/dL Creatinine 0.90 0.70 - 1.30 mg/dL BUN/Creatinine Ratio 14 Calcium 9.1 8.5 - 10.5 mg/dL Protein, Total 6.8 6.3 - 8.2 g/dL Albumin 3.9 3.3 - 4.8 g/dL Globulin 2.9 1.3 - 4.9 g/dL A/G Ratio 1.3 1.0 - 2.4 BILIRUBIN, TOTAL 0.7 0.1 - 1.5 mg/dL ALK PHOS 150 35 - 115 U/L AST 18 10 - 45 U/L ALT 17 10 - 65 U/L Estimated GFR >60 >60 mL/min/1.73m2 Troponin I [[id number]] Collected: 09/07/19725 Order Status: Completed Specimen: Blood Updated: 09/07/19758 Troponin I 0.019 0.00 - 0.04 ng/mL Protime INR [[id number]] Collected: 09/07/19725 Order Status: Completed Specimen: Blood Updated: 09/07/19753 INR 2.2 PTT [[id number]] (Abnormal) Collected: 09/07/19725 Order Status: Completed Specimen: Blood Updated: 09/07/19753 PTT 34 23 - 32 seconds Urinalysis With Microscopic [[id number]] (Abnormal) Collected: 09/07/19730 Order Status: Completed Specimen: Urine Updated: 09/07/19744 Color, UA YELLOW Clarity, Urine CLEAR Specific Mission, Urine 1.020 1.002 - 1.030 Leukocyte esterase, UA NEGATIVE NEG Nitrite, UA NEGATIVE NEG Urobilinogen, Ur NORMAL <1.6 mg/dL Protein, Urine (mg/dL) NEGATIVE NEG mg/dL pH, Urine 5.0 5.0 - 8.0 Blood, UA NEGATIVE NEG Ketones, UA NEGATIVE NEG mg/dL Bilirubin, UA NEGATIVE NEG Glucose, Ur >500 NEG mg/dL WBC UA 3-5 0 - 5 /hpf Red Blood Cells, Urine NONE SEEN 0 - 2 /hpf Squamous Epithelial Cells, Urine NONE SEEN /lpf Bacteria, Urine NONE SEEN NONE Mucus, Urine 1+ CBC with Differential [[id number]] (Abnormal) Collected: 09/07/19725 Order Status: Completed Specimen: Blood Updated: 09/07/19739 WBC 10.14 3.80 - 11.00 K/uL Red Blood Cells 5.52 4.20 - 5.70 M/uL Hemoglobin 14.6 13.2 - 17.0 g/dL Hematocrit 44.9 39.0 - 50.0 % MCV 81.3 80.0 - 100.0 fl MCH 26.4 27.0 - 34.0 pg MCHC 32.5 32.0 - 35.5 g/dL RDW-SD 43.0 37 - 53 fl Platelet Count 245 150 - 400 K/uL MPV 9.8 fl Diff Type AUTOMATED % nRBC 0.0 0 /100WBC % Neutrophils 50.50 % IMMATURE GRANULOCYTE 0.40 % % Lymphocytes 37.40 % Monocyte % 8.50 % Eosinophils % 3.00 % Basophils % 0.20 % Neutrophils, Absolute 5.13 1.90 - 7.40 K/uL IMMATURE GRANS AB 0.04 0.00 - 0.07 K/uL Absolute Lymphocytes 3.79 1.00 - 3.90 K/uL Absolute Monocytes 0.86 0.00 - 0.80 K/uL Eosinophils, Absolute 0.30 0.00 - 0.50 K/uL Basophils, Absolute 0.02 0.00 - 0.10 K/uL I personally reviewed the lab results and they have been posted to the chart. Pertinent po sitive and negative findings have been addressed appropriately. EKG and Radiology Evaluation EKG performed at 0641 Normal Sinus Rhythm 86 bpm. Normal axis Intervals normal No significant ST segment abnormalities T waves are slightly inverted in leads III and aVF No acute ischemia. Interpreted by me at time of service Imaging Results XR Chest AP Portable (Final result) Result time 09/07/19 07:15:42 Final result by Gilberto Ji MD (09/07/19 07:15:42) Impression: No acute cardiopulmonary disease. Final Report Signed by: Irina Ji, Gilberto Sign Date/Time: 09/07/2019 7:15 AM Narrative: CHEST PORTABLE ONE VIEW CLINICAL INFORMATION: Chest pain, urinary infrequency. COMPARISON: XR CHEST PA AND LATERAL (08/06/2019); XR CHEST AP PORTABLE (07/23/2019); CT ANGIOGRAM PULMONARY W CONTRAST (07/03/2019); FINDINGS: Lung volumes are adequate. No confluent consolidation or pleural effusion. No pneumothorax. Acute chain with a house cues overlies the mediastinum, otherwise cardiomediastinal silhouette unremarkable. Pulmonary vascularity within normal limits. No acute osseous abnormality. Diagnosis: 1. Chest discomfort 2. Urinary frequency 3. Type 2 diabetes mellitus with hyperglycemia, with long-term current use of insulin (HCC) Disposition: ED Disposition ED Disposition Condition Comment Discharge Good Follow-up Information Holly Pack NP. Schedule an appointment as soon as possible for a visit in 1 week. Specialty: Nurse Practitioner - Gerontology Contact information: [address] [facility] [address] [facility] [address] [facility]. Specialty: Emergency Medicine Why: If symptoms worsen, As needed Contact information: Darrick Jenkins [facility] [id number] This chart has in part been created using [email or web address] Speech Recognition software. The c abbott has been reviewed and there may still exist sound alike word errors. Breanne Hurtado DO Procedures Breanne Hurtado DO 09/08/191901 Germaine Mcdermott RN - 09/07/2019 6:33 AM PDTBed: ED03 Expected date: Expected time: Means of arrival: Comments: 1721 documented in th is encounter Plan of Treatment +--------+---------+ + + + | Date | Type | Specialty | Care Team | Description | +--------+---------+ + + + | 09/10/ | Office | Geriatric Medicine | Holly Pack, | | 2019 | Visit | | CISTERN ROOM 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 [address] | | | | | | [place] [address] [place], | | | | | | [place] [address] | | | | | | [phone] | | | | | | | | +--------+---------+ + + + | 09/29/ | Office | Urology | Holly Pack, | | | 2019 | Visit | | CISTERN ROOM 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 [address] | | | | | | [place] [place], | | | | | | [place] [address] | | | | | | [phone] | | | | | | | | | | | | Toy Wild, DO | | | | | | [address] | | | | | | [place] [address] | | | | | | [phone] | | | | | | | | +--------+---------+ + + + + +------+--------+ + + | Name | Type | Priori | Associated Diagnoses | Date/Time | | | | ty | | | + +------+--------+ + + | ED INFORMATION | COLTON | Routin | | 09/07/2019 6:33 AM | | EXCHANGE | | e | | PDT | + +------+--------+ + + documented as of this encounter Procedures + +--------+ + + + | Procedure Name | Priori | Date/Time | Associated Diagnosis | Comments | | | ty | | | | + +--------+ + + + | ARRHYTHMIA MONITOR - | | 09/08/2019 | | Results for this | | EXTERNAL SCAN | | 12:00 AM | | procedure are in the | | | | PDT | | results section. | + +--------+ + + + | URINALYSIS WITH | STAT | 09/07/2019 | | Results for this | | MICROSCOPIC | | 7:31 AM | | procedure are in the | | | | PDT | | results section. | + +--------+ + + + | TROPONIN I | STAT | 09/07/2019 | | Results for this | | | | 7:26 AM | | procedure are in the | | | | PDT | | results section. | + +--------+ + + + | PTT | STAT | 09/07/2019 | | Results for this | | | | 7:26 AM | | procedure are in the | | | | PDT | | results section. | + +--------+ + + + | PROTIME INR | STAT | 09/07/2019 | | Results for this | | | | 7:26 AM | | procedure are in the | | | | PDT | | results section. | + +--------+ + + + | CBC WITH | STAT | 09/07/2019 | | Results for this | | DIFFERENTIAL | | 7:26 AM | | procedure are in the | | | | PDT | | results section. | + +--------+ + + + | COMPREHENSIVE | STAT | 09/07/2019 | | Results for this | | METABOLIC PANEL | | 7:26 AM | | procedure are in the | | | | PDT | | results section. | + +--------+ + + + | B TYPE NATRIURETIC | STAT | 09/07/2019 | | Results for this | | PEPTIDE | | 7:25 AM | | procedure are in the | | | | PDT | | results section. | + +--------+ + + + | XR CHEST AP PORTABLE | STAT | 09/07/2019 | | Results for this | | | | 7:09 AM | | procedure are in the | | | | PDT | | results section. | + +--------+ + + + | ECG 12 LEAD | Routin | 09/07/2019 | | Results for this | | | e | 6:41 AM | | procedure are in the | | | | PDT | | results section. | + +--------+ + + + | ED INFORMATION | Routin | 09/07/2019 | | | | EXCHANGE | e | 6:33 AM | | | | | | PDT | | | + +--------+ + + + +---+--------+ | | | | | Proced | | | ure | | | Note - | | | Richard, | | | Lab In | | | | | | Hlseve | | | n - | | | 09/06/ | | | 2019 | | | 6:34 | | | AM PDT | | | | | | Format | | | ting | | | of | | | this | | | note | | | might | | | be | | | differ | | | ent | | | from | | | the | | | origin | | | al.COL | | | LECTIV | | | E?NOTI | | | FICATI | | | ON?/ | | | | | | 0 | | | 06:33? | | | SIMÓN, | | | NORAH | | | | | | M?MRN: | | | | | | [id number] | | | [id number] | | | riteri | | | a Met | | | | | | Medica | | | id 5 | | | in 12 | | | 10 in | | | 12 | | | PDMP | | | Care | | | Guidel | | | inesSe | | | curity | | | and | | | Safety | | | No | | | recent | | | | | | Securi | | | ty | | | Events | | | | | | curren | | | tly on | | | | | | fileED | | | Care | | | Guidel | | | andrei | | | from | | | [facility] | | | | | | Region | | | al | | | Medica | | | l | | | Center | | | Last | | | Update | | | d: | | | 10/18/ | | | 19 | | | 6:09 | | | PM | | | Care | | | Recomm | | | endati | | | on:Thi | | | s | | | patien | | | t has | | | presen | | | tasia to | | | the | | | ER | | | with 5 | | | or | | | more | | | visits | | | | | | during | | | a | | | certai | | | n time | | | | | | period | | | .1.If | | | patien | | | t | | | presen | | | ts in | | | the | | | emerge | | | ncy | | | for | | | non-em | | | ergent | | | | | | issues | | | . It | | | may be | | | | | | approp | | | riate | | | for | | | this | | | patien | | | t to | | | seek | | | care | | | at an | | | Urgent | | | Care | | | Center | | | | | | instea | | | d of | | | the | | | Emerge | | | ncy | | | Room, | | | please | | | offer | | | this | | | altern | | | ate | | | plan | | | to the | | | | | | patien | | | t and | | | provid | | | e list | | | of | | | Urgent | | | Care | | | Clinic | | | s.2. | | | Educat | | | e | | | patien | | | t | | | regard | | | ing | | | the | | | proper | | | use | | | of the | | | | | | Emerge | | | ncy | | | Room.? | | | | | | Redire | | | ct | | | patien | | | t to | | | PCP | | | for | | | care | | | that | | | does | | | not | | | requir | | | e the | | | use of | | | the | | | Emerge | | | ncy | | | Depart | | | ment.3 | | | . The | | | patien | | | t | | | report | | | s not | | | having | | | a | | | PCP. | | | Give | | | the | | | patien | | | t a | | | list | | | of | | | PCPs | | | or | | | refer | | | the | | | patien | | | t to | | | the | | | case | | | manage | | | r in | | | the ER | | | to | | | help | | | coordi | | | ann | | | servic | | | es.4. | | | If the | | | | | | patien | | | t | | | presen | | | ts | | | with | | | any | | | type | | | of | | | substa | | | nce | | | abuse | | | issues | | | | | | please | | | have | | | the ER | | | refer | | | the | | | patien | | | t to | | | substa | | | nce | | | resour | | | harrison. | | | Contac | | | t the | | | case | | | manage | | | r in | | | the ER | | | to | | | help | | | with | | | placem | | | ent.5. | | | If | | | the | | | patien | | | t | | | presen | | | ts | | | with | | | mental | | | | | | health | | | | | | issues | | | | | | please | | | refer | | | the | | | patien | | | t to | | | mental | | | | | | health | | | . Have | | | the | | | patien | | | t | | | speak | | | to the | | | case | | | manage | | | r in | | | the ER | | | to | | | coordi | | | ann | | | servic | | | es. | | | ?6. | | | Pain/O | | | pioid | | | Agreem | | | ent: | | | Please | | | use | | | the [place] | | | State | | | RADHA | | | Prescr | | | iption | | | | | | Monito | | | ring | | | Progra | | | m for | | | specif | | | ics | | | relate | | | d to | | | pt?s | | | use of | | | | | | narcot | | | ics | | | medica | | | tions. | | | ? | | | https: | | | //secu | | | reacce | | | ss.[place]. | | | gov7.A | | | dditio | | | nal | | | Inform | | | ation: | | | | | | Please | | | | | | contac | | | t your | | | | | | facili | | | ty?s | | | Case | | | Manage | | | ment | | | depart | | | ment | | | if | | | furthe | | | r | | | interv | | | ention | | | is | | | needed | | | in | | | the | | | care | | | of | | | this | | | patien | | | t.Thes | | | e are | | | guidel | | | andrei | | | and | | | the | | | provid | | | er | | | should | | | | | | exerci | | | se | | | clinic | | | al | | | judgme | | | nt | | | when | | | provid | | | ing | | | care.P | | | rescri | | | ption | | | Drug | | | Report | | | (12 | | | Mo.)Rx | | | | | | Detail | | | sFill | | | Date | | | Drug | | | Descri | | | ption | | | Qty. | | | Prescr | | | iber | | | CS MED | | | | | | 2020-0 | | | 4-17 | | | HYDROC | | | ODONE- | | | ACETAM | | | IN | | | 5-325 | | | MG 30 | | | [place] | | | A | | | [place] | | | O 2 50 | | | | | | 2020-0 | | | 4-16 | | | HYDROC | | | ODONE- | | | ACETAM | | | IN | | | 5-325 | | | MG 8 | | | CRISTO | | | PIRYAN | | | I 2 40 | | | | | | 2020-0 | | | 4-11 | | | HYDROC | | | ODONE- | | | ACETAM | | | IN | | | 5-325 | | | MG 22 | | | CRISTO | | | PIRYAN | | | I 2 | | | 36.667 | | | | | | 2020-0 | | | 4-11 | | | HYDROC | | | ODONE- | | | ACETAM | | | IN | | | 5-325 | | | MG 22 | | | CRISTO | | | PIRYAN | | | I 2 | | | 36.667 | | | | | | 2019-0 | | | 9-10 | | | LORAZE | | | ANKUR | | | 0.5 MG | | | | | | TABLET | | | 27 | | | NORAH | | | LUISA | | | EVANGE | | | LISTA | | | 4 0 Rx | | | | | | [place] | | | yMetri | | | c | | | Count | | | CS | | | II-V | | | Rx 5 | | | CS-II | | | Rx 4 | | | Quanti | | | ty | | | Dispen | | | sed | | | 109 | | | Unique | | | | | | Prescr | | | ibers | | | 3 | | | Unique | | | | | | Pharma | | | cies 2 | | | | | | Benzos | | | 1 | | | Opioid | | | s 4 | | | Long | | | Acting | | | | | | Opioid | | | s 0 | | | E.D. | | | Visit | | | Count | | | (12 | | | mo.)Fa | | | cility | | | | | | Visits | | | Low | | | Acuity | | | [facility] | | | | | | [facility] | | | idge | | | Hospit | | | al 1 0 | | | | | | [facility] | | | | | | Region | | | al | | | Medica | | | l | | | Center | | | 24 0 | | | [place] | | | s | | | Medica | | | l | | | Center | | | 3 0 | | | [facility] | | | sd | | | Commun | | | ity | | | Hospit | | | al 1 0 | | | [facility] | [place] | | | y | | | Hospit | | | al 1 0 | | | Total | | | 30 0 | | | Note: | | | Visits | | | | | | indica | | | te | | | total | | | known | | | visits | | | . | | | Medica | | | id Low | | | | | | Acuity | | | Dx | | | are | | | the | | | number | | | of | | | primar | | | y | | | diagno | | | ses on | | | the | | | Medica | | | id's | | | Low | | | Acuity | | | dx | | | list. | | | | | | Recent | | | | | | Emerge | | | ncy | | | Depart | | | ment | | | Visit | | | [place] | | | yShowi | | | ng 10 | | | most | | | recent | | | | | | visits | | | out | | | of 30 | | | in the | | | past | | | 12 | | | months | | | Date | | | Facili | | | ty | | | City | | | State | | | Type | | | Diagno | | | ses or | | | Chief | | | | | | Compla | | | int | | | Aug 1, | | | 2020 | | | [facility] | | | | | | [facility] | | | al | | | [facility] | | | [place] | | | [place] | | | Emerge | | | ncy | | | Chest | | | Pain | | | | | | Urinar | | | y | | | Freque | | | ncy | | | [place] | | | 30, | | | 2020 | | | [facility] | | | | | | Region | | | al | | | [facility] | | | [place] | | | [place] | | | Emerge | | | ncy | | | Chest | | | Pain | | | | | | Other | | | insomn | | | ia | | | Hyperg | | | lycemi | | | a, | | | unspec | | | ified | | | | | | Unspec | | | ified | | | atrial | | | | | | fibril | | | lation | | | | | | Essent | | | ial | | | (prima | | | ry) | | | hypert | | | ension | | | [place] | | | 16, | | | 2020 | | | [facility] | | | | | | Region | | | al | | | [facility] | | | [place] | | | [place] | | | Emerge | | | ncy | | | Heart | | | | | | Palpit | | | ations | | | [place] | | | 13, | | | 2020 | | | [facility] | [place] | | | [facility] | | | [place] | | | [place] | | | Emerge | | | ncy | | | Chief | | | Compla | | | int: | | | MULTIP | | | LE | | | COMPLA | | | INTS | | | [place] 8, | | | 2020 | | | [facility] | | | | | | Region | | | al | | | [facility] | | | [place] | | | [place] | | | Emerge | | | ncy | | | | | | Diarrh | | | ea | | | (Adult | | | ) | | | Failur | | | e to | | | Thrive | | | | | | Noninf | | | ective | | | | | | gastro | | | enteri | | | tis | | | and | | | coliti | | | s, | | | unspec | | | ified | | | | | | Type 2 | | | | | | diabet | | | es | | | mellit | | | us | | | with | | | hyperg | | | lycemi | | | a | | | Essent | | | ial | | | (prima | | | ry) | | | hypert | | | ension | | | May | | | 30, | | | 2020 | | | [facility] | | | | | | [facility] | | | al | | | [facility] | | | [place] | | | [place] | | | Emerge | | | ncy | | | | | | Hypert | | | ension | | | | | | Urinar | | | y | | | Compla | | | int | | | | | | Patien | | | t's | | | other | | | noncom | | | plianc | | | e with | | | | | | medica | | | tion | | | regime | | | n | | | Unspec | | | ified | | | fall, | | | initia | | | l | | | encoun | | | ter | | | | | | Essent | | | ial | | | (prima | | | ry) | | | hypert | | | ension | | | May | | | 27, | | | 2020 | | | [facility] | | | | | | [facility] | | | al | | | [facility] | | | [place] | | | [place] | | | Emerge | | | ncy | | | | | | Shortn | | | ess of | | | | | | Breath | | | | | | Fever | | | (9 | | | Weeks | | | To 73 | | | Years) | | | | | | Chest | | | Pain | | | | | | Sepsis | | | , | | | unspec | | | ified | | | organi | | | sm | | | Fever, | | | | | | unspec | | | ified | | | | | | Unspec | | | ified | | | atrial | | | | | | fibril | | | lation | | | Apr | | | 8, | | | 2020 | | | [facility] | | | | | | [facility] | | | al | | | [facility] | | | [place] | | | [place] | | | Emerge | | | ncy | | | Leg | | | Deform | | | ity | | | Fall | | | | | | Contus | | | ion of | | | right | | | knee, | | | | | | initia | | | l | | | encoun | | | ter | | | Long | | | term | | | (curre | | | nt) | | | use of | | | | | | antico | | | agulan | | | ts | | | Unspec | | | ified | | | fall, | | | initia | | | l | | | encoun | | | ter | | | Other | | | | | | abnorm | | | alitie | | | s of | | | gait | | | and | | | mobili | | | ty | | | Apr 6, | | | 2020 | | | [facility] | | | | | | [facility] | | | al | | | [facility] | | | [place] | | | [place] | | | Emerge | | | ncy | | | High | | | Blood | | | Sugar | | | (Sympt | | | omatic | | | ) | | | Long | | | term | | | (curre | | | nt) | | | use of | | | | | | insuli | | | n | | | Type 2 | | | | | | diabet | | | es | | | mellit | | | us | | | with | | | hyperg | | | lycemi | | | a Mar | | | 7, | | | 2020 | | | [facility] | | | | | | [facility] | | | al | | | [facility] | | | [place] | | | [place] | | | Emerge | | | ncy | | | Chest | | | Pain | | | | | | Other | | | chest | | | pain | | | Type | | | 2 | | | diabet | | | es | | | mellit | | | us | | | with | | | hyperg | | | lycemi | | | a | | | Long | | | term | | | (curre | | | nt) | | | use of | | | | | | insuli | | | n | | | Recent | | | | | | Inpati | | | ent | | | Visit | | | [facility] | | | yDate | | | Facili | | | ty | | | City | | | State | | | Type | | | Diagno | | | ses or | | | Chief | | | | | | Compla | | | int | | | [place] | | | 16, | | | 2020 | | | [facility] | | | | | | [facility] | | | al | | | [facility] | | | [place] | | | [place] | | | Genera | | | l | | | Medici | | | ne | | | Heart | | | Palpit | | | ations | | | | | | Weakne | | | ss | | | Pneumo | | | nitis | | | due to | | | | | | inhala | | | tion | | | of | | | food | | | and | | | vomit | | | | | | Paroxy | | | smal | | | atrial | | | | | | fibril | | | lation | | | [place] | | | 13, | | | 2020 | | | [facility] | | | [place] | | | [facility] | | | [place] | | | [place] | | | Critic | | | al | | | Care | | | | | | Entero | | | coliti | | | s due | | | to | | | Clostr | | | idium | | | diffic | | | ile, | | | not | | | specif | | | ied as | | | | | | Long | | | term | | | (curre | | | nt) | | | use of | | | | | | antico | | | agulan | | | ts | | | [place] | | | ent | | | atrial | | | | | | fibril | | | lation | | | | | | Person | | | al | | | histor | | | y of | | | transi | | | ent | | | ischem | | | ic | | | attack | | | | | | (TIA), | | | and | | | cere | | | | | | Contac | | | t with | | | and | | | (suspe | | | cted) | | | exposu | | | re to | | | other | | | viral | | | commun | | | ic | | | Unspec | | | ified | | | lack | | | of | | | expect | | | ed | | | normal | | | | | | physio | | | logica | | | l | | | develo | | | pment | | | | | | Hyperl | | | ipidem | | | ia, | | | unspec | | | ified | | | | | | Patien | | | t's | | | noncom | | | plianc | | | e with | | | other | | | | | | medica | | | l | | | treatm | | | ent | | | and | | | pop | | | | | | Benign | | | | | | prosta | | | tic | | | hyperp | | | lasia | | | withou | | | t | | | lower | | | urinar | | | y | | | tract | | | symp | | | | | | Person | | | al | | | histor | | | y of | | | pulmon | | | ankur | | | emboli | | | sm | | | May | | | 27, | | | 2020 | | | [facility] | | | | | | [facility] | | | al | | | [facility] | | | [place] | | | [place] | | | [employer] Agent | | | al | | | Medici | | | ne | | | Chroni | | | c | | | obstru | | | ctive | | | pulmon | | | ankur | | | diseas | | | e, | | | unspec | | | ified | | | | | | Unspec | | | ified | | | atrial | | | | | | fibril | | | lation | | | | | | Unspec | | | ified | | | lack | | | of | | | expect | | | ed | | | normal | | | | | | physio | | | logica | | | l | | | develo | | | pment | | | | | | Sepsis | | | , | | | unspec | | | ified | | | organi | | | sm | | | Bacter | | | emia | | | | | | Fever, | | | | | | unspec | | | ified | | | | | | Type 2 | | | | | | diabet | | | es | | | mellit | | | us | | | with | | | hyperg | | | lycemi | | | a Sep | | | 5, | | | 2019 | | | [facility] | | | | | | [facility] | | | al | | | [facility] | | | [place] | | | [place] | | | Engineering Agent | | | al | | | Medici | | | ne | | | Long | | | term | | | (curre | | | nt) | | | use of | | | | | | antico | | | agulan | | | ts | | | Long | | | term | | | (curre | | | nt) | | | use of | | | | | | insuli | | | n | | | Type 2 | | | | | | diabet | | | es | | | mellit | | | us | | | with | | | hyperg | | | lycemi | | | a | | | Syncop | | | e and | | | collap | | | se | | | Allerg | | | y | | | status | | | to | | | unspec | | | ified | | | drugs, | | | | | | medica | | | ments | | | and | | | biolog | | | ic | | | Chest | | | pain, | | | unspec | | | ified | | | | | | Other | | | chest | | | pain | | | | | | Essent | | | ial | | | (prima | | | ry) | | | hypert | | | ension | | | Aug | | | 8, | | | 2019 | | | [facility] | | | | | | [facility] | | | al | | | [facility] | | | [place] | | | [place] | | | Genera | | | l | | | Medici | | | ne | | | Long | | | term | | | (curre | | | nt) | | | use of | | | | | | insuli | | | n | | | Unspec | | | ified | | | atrial | | | | | | fibril | | | lation | | | | | | Essent | | | ial | | | (prima | | | ry) | | | hypert | | | ension | | | | | | Type 2 | | | | | | diabet | | | es | | | mellit | | | us | | | with | | | hyperg | | | lycemi | | | a | | | Care | | | TeamPr | | | ovider | | | | | | Specia | | | lty | | | Phone | | | Fax | | | Servic | | | e | | | Dates | | | Unknow | | | n | | | Skille | | | d | | | Nursin | | | g | | | Facili | | | ty | | | ([phone]) | | | [phone] | | | 95 | | | Curren | | | t | | | [place] | | | O, | | | [place], | | | CISTERN RO[employer] 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 | | | Nurse | | | Practi | | | tioner | | | : | | | Geront | | | ology | | | | | | Curren | | | t | | | [facility] | | | tive | | | Portal | | | This | | | patien | | | t has | | | regist | | | ered | | | at the | | | | | | [facility] | | | | | | Region | | | al | | | Medica | | | l | | | Center | | | | | | Emerge | | | ncy | | | Depart | | | ment | | | For | | | more | | | inform | | | ation | | | visit: | | | | | | https: | | | //secu | | | re.col | | | lectiv | | | emedic | | | al.com | | | /notif | | | [id number] | | | [id number] | | | [phone] | | | [phone] | | | [phone] | | | [phone] | | | 03 | | | PLEASE | | | NOTE: | | | 1. | | | Any | | | care | | | recomm | | | endati | | | ons | | | and | | | other | | | clinic | | | al | | | inform | | | ation | | | are | | | provid | | | ed as | | | guidel | | | andrei | | | or for | | | | | | histor | | | ical | | | purpos | | | es | | | only, | | | and | | | provid | | | ers | | | should | | | | | | exerci | | | se | | | their | | | own | | | clinic | | | al | | | judgme | | | nt | | | when | | | provid | | | ing | | | care. | | | 2. | | | You | | | may | | | only | | | use | | | this | | | inform | | | ation | | | for | | | purpos | | | es of | | | treatm | | | ent, | | | paymen | | | t or | | | health | | | care | | | operat | | | ions | | | activi | | | ties, | | | and | | | subjec | | | t to | | | the | | | limita | | | tions | | | of | | | applic | | | able | | | [facility] | | | tive | | | Polici | | | es. | | | 3. | | | You | | | should | | | | | | consul | | | t | | | direct | | | ly | | | with | | | the | | | organi | | | zation | | | that | | | provid | | | ed a | | | care | | | guidel | | | ine or | | | other | | | | | | clinic | | | al | | | histor | | | y with | | | any | | | questi | | | ons | | | about | | | additi | | | onal | | | inform | | | ation | | | or | | | accura | | | cy or | | | comple | | | teness | | | of | | | inform | | | ation | | | provid | | | ed.? | | | 2020 | | | [employer] | | | tive | | | [employer] | | | l | | | [employer] | | | logies | | | , [employer] | | | - | | | [email or web address] | | | llecti | | | vemedi | | | [email or web address] | | | m | +---+--------+ documented in this encounter Results ARRHYTHMIA MONITOR - EXTERNAL SCAN (09/08/2019 12:00 AM PDT) + + + | Narrative | Performed At | + + + | Ordered by an | | | unspecified provider. | | + + + Urinalysis With Microscopic (09/07/2019 7:31 AM PDT) + + + + + + | Component | Value | Ref Range | Performed | Pathologist | | | | | At | Signature | + + + + + + | Color, UA | YELLOW | | [facility] | | | | | | LABORATORY | | + + + + + + | Clarity, | CLEAR | | [facility] | | | Urine | | | LABORATORY | | + + + + + + | Specific | 1.020 | 1.002 - 1.030 | [facility] | | | [facility], | | | LABORATORY | | | Urine | | | | | + + + + + + | Leukocyte | NEGATIVE | NEG | [facility] | | | esterase, | | | LABORATORY | | | UA | | | | | + + + + + + | Nitrite, UA | NEGATIVE | NEG | [facility] | | | | | | LABORATORY | | + + + + + + | Urobilinoge | NORMAL | <1.6 mg/dL | [facility] | | | n, Ur | | | LABORATORY | | + + + + + + | Protein, | NEGATIVE | NEG mg/dL | [facility] | | | Urine | | | LABORATORY | | | (mg/dL) | | | | | + + + + + + | pH, Urine | 5.0 | 5.0 - 8.0 | [facility] | | | | | | LABORATORY | | + + + + + + | Blood, UA | NEGATIVE | NEG | [facility] | | | | | | LABORATORY | | + + + + + + | Ketones, UA | NEGATIVE | NEG mg/dL | [facility] | | | | | | LABORATORY | | + + + + + + | Bilirubin, | NEGATIVE | NEG | [facility] | | | UA | | | LABORATORY | | + + + + + + | Glucose, Ur | >500 (A) | NEG mg/dL | [facility] | | | | | | LABORATORY | | + + + + + + | WBC UA | 3-5 | 0 - 5 /hpf | [facility] | | | | | | LABORATORY | | + + + + + + | Red Blood | NONE SEEN | 0 - 2 /hpf | [facility] | | | Cells, | | | LABORATORY | | | Urine | | | | | + + + + + + | Squamous | NONE SEEN | /lpf | [facility] | | | Epithelial | | | LABORATORY | | | Cells, | | | | | | Urine | | | | | + + + + + + | Bacteria, | NONE SEEN | NONE | [facility] | | | Urine | | | LABORATORY | | + + + + + + | Mucus, | 1+Comment: Testing | | [facility] | | | Urine | performed at [facility];[address] | | LABORATORY | | | | [address];[place] | | | | | | [id number] | | | | + + + + + + + + | Specimen | + + | Urine | + + + + + + + | Performing | Address | City/State/Zipcode | Phone Number | | Organization | | | | + + + + + | [facility] | [address] | [place] [address] | [phone] | + + + + + Troponin I (09/07/2019 7:26 AM PDT) + + + + + + | Component | Value | Ref Range | Performed | Pathologist | | | | | At | Signature | + + + + + + | Troponin I | 0.019Comment: 0.04 | 0.00 - 0.04 | [facility] | | | | ng/mL or less | ng/mL | LABORATORY | | | | Negative, repeat | | | | | | testing in four to six | | | | | | hour ifclinically | | | | | | indicted0.05 to 0.77 | | | | | | ng/mL | | | | | | Suspicious for | | | | | | myocardial injury. | | | | | | Serial measurementsmay | | | | | | be necessary to confirm | | | | | | or exclude the diagnosis | | | | | | of acute | | | | | | coronarysyndrome. Repeat | | | | | | testing in four to six | | | | | | hours if indicated.0.78 | | | | | | or greater ng/mL | | | | | | Consistent with | | | | | | myocardial injury. | | | | | | Clinical andlaboratory | | | | | | correlation recommended. | | | | | | Testing performed at | | | | | | [facility];[address];[place] [address] | | | | + + + + + + + + | Specimen | + + | Blood | + + + + + + + | Performing | Address | City/State/Zipcode | Phone Number | | Organization | | | | + + + + + | [facility] | [address] | [place] [address] | [phone] | + + + + + PTT (09/07/2019 7:26 AM PDT) + + + + + + | Component | Value | Ref Range | Performed | Pathologist | | | | | At | Signature | + + + + + + | PTT | 34 (H)Comment: Testing | 23 - 32 seconds | [facility] | | | | performed at [facility];[address] | | LABORATORY | | | | [address];[place], [place] | | | | | | [address] | | | | + + + + + + + + | Specimen | + + | Blood | + + + + + + + | Performing | Address | City/State/Zipcode | Phone Number | | Organization | | | | + + + + + | [facility] | [address] | [place] [address] | [phone] | + + + + + Protime INR (09/07/2019 7:26 AM PDT) + + + + + + | Component | Value | Ref Range | Performed | Pathologist | | | | | At | Signature | + + + + + + | INR | 2.2Comment: REFERENCE | | [facility] | | | | RANGE:0.9 - 1.2 | | LABORATORY | | | | NON-ANTICOAGULATED2.0 | | | | | | - 3.0 ALL OTHER | | | | | | THERAPEUTIC | | | | | | INDICATIONS2.5 - 3.5 | | | | | | MECHANICAL HEART VALVES, | | | | | | RECURRENT OR SYSTEMIC | | | | | | EMBOLISMTesting | | | | | | performed at [facility] | | | | | | [facility];[place], [place] | | | | | | [address] | | | | + + + + + + + + | Specimen | + + | Blood | + + + + + + + | Performing | Address | City/State/Zipcode | Phone Number | | Organization | | | | + + + + + | [facility] | [address] | [place] [address] | [phone] | + + + + + Comprehensive Metabolic Panel (09/07/2019 7:26 AM PDT) + + + + + + | Component | Value | Ref Range | Performed | Pathologist | | | | | At | Signature | + + + + + + | Na | 139 | 135 - 145 | [facility] | | | | | mmol/L | LABORATORY | | + + + + + + | K | 3.5 | 3.5 - 4.9 | [facility] | | | | | mmol/L | LABORATORY | | + + + + + + | Cl | 105 | 99 - 109 mmol/L | [facility] | | | | | | LABORATORY | | + + + + + + | CO2 | 26 | 23 - 32 mmol/L | [facility] | | | | | | LABORATORY | | + + + + + + | Anion Gap | 12 | 5 - 20 mmol/L | [facility] | | | | | | LABORATORY | | + + + + + + | Glucose | 269 (H) | 65 - 99 mg/dL | [facility] | | | | | | LABORATORY | | + + + + + + | BUN | 13 | 8 - 25 mg/dL | [facility] | | | | | | LABORATORY | | + + + + + + | Creatinine | 0.90 | 0.70 - 1.30 | [facility] | | | | | mg/dL | LABORATORY | | + + + + + + | BUN/Creatin | 14 | | [facility] | | | ine Ratio | | | LABORATORY | | + + + + + + | Calcium | 9.1 | 8.5 - 10.5 | [facility] | | | | | mg/dL | LABORATORY | | + + + + + + | Protein, | 6.8 | 6.3 - 8.2 g/dL | [facility] | | | Total | | | LABORATORY | | + + + + + + | Albumin | 3.9 | 3.3 - 4.8 g/dL | [facility] | | | | | | LABORATORY | | + + + + + + | Globulin | 2.9 | 1.3 - 4.9 g/dL | [facility] | | | | | | LABORATORY | | + + + + + + | A/G Ratio | 1.3 | 1.0 - 2.4 | [facility] | | | | | | LABORATORY | | + + + + + + | BILIRUBIN, | 0.7 | 0.1 - 1.5 mg/dL | [facility] | | | TOTAL | | | LABORATORY | | + + + + + + | ALK PHOS | 150 (H) | 35 - 115 U/L | [facility] | | | | | | LABORATORY | | + + + + + + | AST | 18 | 10 - 45 U/L | [facility] | | | | | | LABORATORY | | + + + + + + | ALT | 17 | 10 - 65 U/L | [facility] | | | | | | LABORATORY | | + + + + + + | Estimated | >60Comment: GFR <60: | >60 | [facility] | | | GFR | CHRONIC KIDNEY DISEASE, | mL/min/1.73m2 | LABORATORY | | | | IF FOUND OVER A 3 MONTH | | | | | | PERIOD.GFR <15: KIDNEY | | | | | | FAILURE.FOR | | | | | | AMERICANS, MULTIPLY THE | | | | | | CALCULATED GFR BY | | | | | | 1.210.This eGFR is | | | | | | calculated using the | | | | | | MDRD IDMS traceable | | | | | | equation.Testing | | | | | | performed at [facility] | | | | | | [facility];[place], [place] | | | | | | [address] | | | | + + + + + + + + | Specimen | + + | Blood | + + + + + + + | Performing | Address | City/State/Zipcode | Phone Number | | Organization | | | | + + + + + | [facility] | [address] | [place] [address] | [phone] | + + + + + CBC with Differential (09/07/2019 7:26 AM PDT) + + + + + + | Component | Value | Ref Range | Performed | Pathologist | | | | | At | Signature | + + + + + + | WBC | 10.14 | 3.80 - 11.00 | [facility] | | | | | K/uL | LABORATORY | | + + + + + + | Red Blood | 5.52 | 4.20 - 5.70 | [facility] | | | Cells | | M/uL | LABORATORY | | + + + + + + | Hemoglobin | 14.6 | 13.2 - 17.0 | [facility] | | | | | g/dL | LABORATORY | | + + + + + + | Hematocrit | 44.9 | 39.0 - 50.0 % | [facility] | | | | | | LABORATORY | | + + + + + + | MCV | 81.3 | 80.0 - 100.0 fl | [facility] | | | | | | LABORATORY | | + + + + + + | MCH | 26.4 (L) | 27.0 - 34.0 pg | [facility] | | | | | | LABORATORY | | + + + + + + | MCHC | 32.5 | 32.0 - 35.5 | [facility] | | | | | g/dL | LABORATORY | | + + + + + + | RDW-SD | 43.0 | 37 - 53 fl | [facility] | | | | | | LABORATORY | | + + + + + + | Platelet | 245 | 150 - 400 K/uL | [facility] | | | Count | | | LABORATORY | | + + + + + + | MPV | 9.8Comment: NO NORMAL | fl | [facility] | | | | RANGE ESTABLISHED | | LABORATORY | | + + + + + + | Diff Type | AUTOMATED | | [facility] | | | | | | LABORATORY | | + + + + + + | % nRBC | 0.0 | 0 /100WBC | [facility] | | | | | | LABORATORY | | + + + + + + | % | 50.50 | % | [facility] | | | Neutrophils | | | LABORATORY | | + + + + + + | IMMATURE | 0.40 | % | [facility] | | | GRANULOCYTE | | | LABORATORY | | + + + + + + | % | 37.40 | % | [facility] | | | Lymphocytes | | | LABORATORY | | + + + + + + | Monocyte % | 8.50 | % | [facility] | | | | | | LABORATORY | | + + + + + + | Eosinophils | 3.00 | % | [facility] | | | % | | | LABORATORY | | + + + + + + | Basophils % | 0.20 | % | [facility] | | | | | | LABORATORY | | + + + + + + | Neutrophils | 5.13 | 1.90 - 7.40 | [facility] | | | , Absolute | | K/uL | LABORATORY | | + + + + + + | IMMATURE | 0.04Comment: NOTE NEW | 0.00 - 0.07 | [facility] | | | GRANS AB | REFERENCE RANGE | K/uL | LABORATORY | | + + + + + + | Absolute | 3.79 | 1.00 - 3.90 | [facility] | | | Lymphocytes | | K/uL | LABORATORY | | + + + + + + | Absolute | 0.86 (H) | 0.00 - 0.80 | [facility] | | | Monocytes | | K/uL | LABORATORY | | + + + + + + | Eosinophils | 0.30 | 0.00 - 0.50 | [facility] | | | , Absolute | | K/uL | LABORATORY | | + + + + + + | Basophils, | 0.02Comment: Testing | 0.00 - 0.10 | [facility] | | | Absolute | performed at [facility];[address] | [address]/u[address] | LABORATORY | | | | [address];[place] | | | | | | [address] | | | | + + + + + + + + | Specimen | + + | Blood | + + + + + + + | Performing | Address | City/State/Zipcode | Phone Number | | Organization | | | | + + + + + | [facility] | [address] | [place] [address] | [phone] | + + + + + B Type Natriuretic Peptide (09/07/2019 7:25 AM PDT) + + + + + + | Component | Value | Ref Range | Performed | Pathologist | | | | | At | Signature | + + + + + + | BNP | 34.86Comment: Testing | 0 - 100 pg/mL | [facility] | | | | performed at [facility] | | LABORATORY | | | | [address];[place], [place] | | | | | | [address] | | | | + + + + + + + + | Specimen | + + | Blood | + + + + + + + | Performing | Address | City/State/Zipcode | Phone Number | | Organization | | | | + + + + + | [facility] | [address] | [place] [address] | [phone] | + + + + + XR Chest AP Portable (09/07/2019 7:09 AM PDT) + + | Specimen | + + | | + + + + + | Impressions | Performed At | + + + | No acute cardiopulmonary disease. Final Report Signed | [facility] | | by: Irina Ji, Gilberto Sign Date/Time: 09/07/2019 7:15 AM | | + + + + + + | Narrative | Performed At | + + + | CHEST PORTABLE ONE VIEW CLINICAL INFORMATION: Chest pain, | [facility] | | urinary infrequency. COMPARISON: XR CHEST PA AND LATERAL | | | (08/06/2019); XR CHEST AP PORTABLE (07/23/2019); CT ANGIOGRAM PULMONARY | | | W CONTRAST (07/03/2019); FINDINGS: Lung volumes are adequate. | | | No confluent consolidation or pleural effusion. No pneumothorax. | | | Acute chain with a house cues overlies the mediastinum, otherwise | | | cardiomediastinal silhouette unremarkable. Pulmonary vascularity | | | within normal limits. No acute osseous abnormality. | | + + + + + | Procedure Note | + + | Richard, [id number] - 09/07/2019 7:19 AM PDT | | CHEST PORTABLE ONE VIEW | | | | CLINICAL INFORMATION: | | Chest pain, urinary infrequency. | | | | COMPARISON: | | XR CHEST PA AND LATERAL (08/06/2019); XR CHEST AP PORTABLE (07/23/2019); | | CT ANGIOGRAM PULMONARY W CONTRAST (07/03/2019); | | | | FINDINGS: | | Lung volumes are adequate. No confluent consolidation or pleural | | effusion. No pneumothorax. | | | | Acute chain with a house cues overlies the mediastinum, otherwise | | cardiomediastinal silhouette unremarkable. Pulmonary vascularity | | within normal limits. No acute osseous abnormality. | | | | IMPRESSION: | | No acute cardiopulmonary disease. | | | | | | | | | | Final Report Signed by: Irina Ji James | | Sign Date/Time: 09/07/2019 7:15 AM | + + + +---------+ + + | Performing | Address | City/State/Zipcode | Phone Number | | Organization | | | | + +---------+ + + | [facility] | | | | + +---------+ + + ECG 12 lead (09/07/2019 6:41 AM PDT) + + + + + + | Component | Value | Ref Range | Performed | Pathologist | | | | | At | Signature | + + + + + + | VENTRICULAR | 86 | BPM | [facility] | | | RATE EKG | | | | | + + + + + + | ATRIAL RATE | 86 | BPM | [facility] | | + + + + + + | P-R | 160 | ms | [facility] | | | INTERVAL | | | | | + + + + + + | QRS | 82 | ms | [facility] | | | DURATION | | | | | + + + + + + | Q-T | 400 | ms | [facility] | | | INTERVAL | | | | | + + + + + + | Q-T | 478 | ms | [facility] | | | INTERVAL | | | | | | (CORRECTED) | | | | | + + + + + + | P WAVE AXIS | 42 | degrees | [facility] | | + + + + + + | QRS AXIS | 46 | degrees | [facility] | | + + + + + + | T AXIS | 41 | degrees | [facility] | | + + + + + + | INTERPRETAT | Sinus rhythm with | | [facility] | | | ION TEXT | Premature atrial | | | | | | complexesOtherwise | | | | | | normal ECGWhen compared | | | | | | with ECG of 06-AUG-2019 | | | | | | 03:53,No significant | | | | | | change was foundThis ECG | | | | | | contains Unconfirmed | | | | | | Interpretation | | | | | | Statements. See ED | | | | | | Record for Physician | | | | | | Interpretation. | | | | | | Confirmed by MUSE READ | | | | | | ONLY, -COMPUTER ([id number]), | | | | | | city editor [place]TH[place] V[place]SQUEZ | | | | | | ([id number]) on 09/07/2019 | | | | | | 11:35:44 AM | | | | + + + + + + + + | Specimen | + + | | + + + + + | Narrative | Performed At | + + + | | | + + + + +---------+ + + | Performing | Address | City/State/Zipcode | Phone Number | | Organization | | | | + +---------+ + + | [facility] | | | | + +---------+ + + documented in this encounter Visit Diagnoses + + | Diagnosis | + + | Chest discomfort - Primary Other chest pain | + + | Urinary frequency | + + | Type 2 diabetes mellitus with hyperglycemia, with long-term current use of insulin | | (HCC) | + + documented in this encounter Administered Medications + +--------+ +-------+------+------+ | Medication Order | MAR | Action | Dose | Rate | Site | | | Action | Date | | | | + +--------+ +-------+------+------+ | hydrALAZINE (APRESOLINE) | Given | 09/07/19 | 20 mg | | | | injection 20 mg 20 mg, | | 20 8:45 | | | | | Intravenous, ONCE, 09/07/19 at | | AM PDT | | | | | 0845, For 1 dose | | | | | | + +--------+ +-------+------+------+ +---+---+ | | | +---+---+ documented in this encounter
--- OUTSIDE RECORDS SUMMARY | ~2019-09-09 | XMS | Encounter Summary ---
Demographics + + + | Address | [address] | | | [place] [address] | + + + | Home Phone | | + + + | Preferred Language | Unknown | + + + | Marital Status | | + + + | Taoist Affiliation | 1027 | + + + | Race | Unknown | + + + | Ethnic Group | Unknown | + + + Author + + + | Author | [facility] | | | and [place] | + + + | Organization | [facility] | | | and [place] | + + + | Address | Unknown | + + + | Phone | Unavailable | + + + Support + + + + + | Name | Relationship | Address | Phone | + + + + + | Sammi Kohler | ECON | [place] [address] | | + + + + + Care Team Providers + +------+ + | [employer] Name | Role | Phone | + +------+ + | Mireya Pack NP | PCP | | + +------+ + Reason for Visit +--------+--------+ + | Reason | Onset | Comments | | | Date | | +--------+--------+ + | Other | 02/22/ | [facility] Physician Info Request | | | 2020 | | +--------+--------+ + Encounter Details +--------+ + + + + | Date | Type | Department | Care Team | Description | +--------+ + + + + | 02/22/ | Telephone | [facility] [place] | Myriam Gary, | Other ([facility] | | 2020 | | [facility] [address] | Recycle Driver | Physician Info | | | | [address] | | Request ) | | | | [facility] [place] | | | | | | [address] | | | | | | [phone] | | | +--------+ + + + [...] Comments | + + +---------+ + | Yes | | | Alcoholic | | | [...] do you have serious | No | 10/11/2018 | | difficulty hearing? | | | + + + + | Are you blind or do you have serious | No | 10/11/2018 | | difficulty seeing, even when wearing | | | | glasses? | | | + + + + | Do you have serious difficulty walking or | No | 10/11/2018 | | climbing stairs? (5 years old or older) | | | + + + + | Do you have difficulty dressing or bathing? | No | 10/11/2018 | | (5 years old or older) | | | + + + + | Because of a physical, mental, or emotional | Yes | 10/11/2018 | | condition, do you have difficulty [...] physical, mental, or emotional | Yes | 10/11/2018 | | condition, do you have serious difficulty | | | | concentrating, remembering, or making | | | | decisions? (5 years old or older) | | | + + + + documented as of this encounter Miscellaneous Notes Telephone Encounter - Myriam Gary Medical Assistant - 02/22/2019 2:59 PM PSTSee scan for details. 3:0 0 PM PSTdocumented in this encounter Plan of Treatment +--------+---------+ + + + | Date | Type | Specialty | Care Team | Description | +--------+---------+ + + + | 09/10/ | Office | Geriatric Medicine | Mireya Pack, | | 2019 | Visit | | [facility] [address] | | | | | | [address] [place], | | | | | | [place] [address] | | | | | | [phone] | | | | | | | | +--------+---------+ + + + | 09/29/ | Office | Urology | Mireya Pack, | | 2019 | Visit | | [address] [address] | | | | | | [address] [place], | | | | | | [place] [address] | | | | | | [phone] | | | | | | | | | | | | Toy Wild DO | | | | | | [address] | | | | | | [place] [address] | | | | | | [phone] | | | | | | | | +--------+---------+ + + + documented as of this encounter Visit Diagnoses Not on filedocumented in this encounter"
--- OUTSIDE RECORDS SUMMARY | ~2019-09-09 | XMS | Encounter Summary ---
Demographics + + + | Address | [address] | | | [place] [address] | + + + | Home Phone | | + + + | Preferred Language | Unknown | + + + | Marital Status | | + + + | Latter-Day Affiliation | 1027 | + + + | Race | Unknown | + + + | Ethnic Group | Unknown | + + + Author + + + | Author | [facility] | | | and [place] | + + + | Organization | [facility] | | | and [place] | + + + | Address | Unknown | + + + | Phone | Unavailable | + + + Support + + + + + | Name | Relationship | Address | Phone | + + + + + | Sammi Kohler | ECON | [place] [address] | | + + + + + Care Team Providers + +------+ + | Care Nurse'S Aides Teacher Name | Role | Phone | + +------+ + PCP | Unavailable | + +------+ + Encounter Details +--------+ + + + + | Date | Type | Department | Care Team | Description | +--------+ + + + + | 03/13/ | Emergency | [facility] | Gurvinder Cruz, | Abdominal pain; | | 2013 | | MEDICAL CENTER | MD [address] | Constipation | | | | EMERGENCY CENTER | [place], [place] | | | | | [address] | [address] | | | | | [place], [place] | [phone] | | | | | [address] | | | | | | [phone] | | | +--------+ + + + [...] documented as of this encounter ED Notes Gurvinder Cruz MD - 03/13/2013 2:28 AM PSTFormatting of this note might be different fr om the original. ED Provider Notes by Gurvinder Cruz MD at 03/13/13227 Author: Gurvinder Cruz MD Service: (none) Author Type: Physician Filed: 03/13/1316 Date of Service: 03/13/13227 Status: Signed Utility Arborist: Gurvinder Cruz MD (Physician) [facility] Department of Emergency Medicine 2:15 AM History of Present Illness Patient Identification Norah Gr is a 57 y.o. male. Patient information was obtained from patient. History/Exam limitations: none. Patient presented to the Emergency Department by: Car Chief Complaint Chief Complaint Patient presents with Abdominal Pain The patient presents to ED with complaints of abdominal pain. Onset of symptoms was 2 hours ago, with a constant course since that time. The symptoms are described to be of moderate s everity. The patient describes the quality and location of the symptoms as the following: sh abram, periumbilical pain. Pt states that he has recently had a colonoscopy performed where a small polyp was found. The patient also complains of nausea and diarrhea. Patient denies vom iting, constipation, CP, SOB, or any other sx at this time. Pt states that he has tried pain medication and Tums, with no pain relief. PCP: TAINA WASHBURN Past Medical History Diagnosis Date Diabetes mellitus type II Atrial fibrillation Hypertension Hyperlipidemia Anxiety Depression WARD (obstructive sleep apnea) 08/11/2012 Basal cell carcinoma 09/26/2012 Unspecified visual disturbance Renal failure GIB (gastrointestinal bleeding) 03/02/2013 ARF (acute renal failure) 03/02/2013 COPD (chronic obstructive pulmonary disease) 03/02/2013 Development delay Past Surgical History Procedure Date Unlisted procedure arthroscopy Knee surgery Leg surgery LLE Colonoscopy Cholecystectomy, laparoscopic 09/12/2012 Procedure: LAPAROSCOPIC - CHOLECYSTECTOMY; Surgeon: Jevon Vargas DO; Location: [facility] MAIN OR; Service: General; 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; Abdominal surgery Cholecystectomy Skin cancer excision 10/10/2012 Procedure: EXCISION - SKIN CANCER; Surgeon: Sy Fierro MD; Location: [facility] OR ; Service: Plastics; Laterality: Left; upper arm and upper back w/frozen section Esophagogastroduodenoscopy 03/03/2013 Procedure: ESOPHAGOGASTRODUODENOSCOPY; Surgeon: Howie Gibson MD; Location: [facility]OS[facility]; S ervice: Gastroenterology; 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; Colonoscopy 03/04/2013 Procedure: COLONOSCOPY; Surgeon: Howie Gibson MD; Location: [facility] ENDOSCOPY; Service: Gastroe nterology; 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; Prior to Admission medications Medication Sig Start Date End Date Taking? Authorizing Provider Albuterol Sulfate (VENTOLIN HFA IN) Inhale 2 puffs into the lungs as needed. Historical Provider ARIPiprazole (ABILIFY) 10 MG tablet Take 15 mg by mouth nightly. Historical Provider calcium carbonate (TUMS) 500 MG chewable tablet Take 500-1,000 mg by mouth daily as needed. For GERD Historical Provider cloNIDine (CATAPRES) 0.2 MG tablet Take 1 tablet by mouth 3 (three) times daily. 03/05/13 Scott Martínez MD diltiazem (CARDIZEM CD) 240 MG 24 hr capsule Take 240 mg by mouth daily. Historical Prov ider famotidine (PEPCID) 20 MG tablet Take 1 tablet by mouth 2 (two) times daily. 12/22/1212/22 Martell Gold MD fenofibrate (TRIGLIDE) 160 MG tablet Take 160 mg by mouth daily. Historical Provider fluticasone-salmeterol (ADVAIR DISKUS) 250-50 MCG/DOSE AEPB Inhale 1 puff into the lungs ev wilbert 12 (twelve) hours. 09/14/12 Augustine Agosto MD HYDROcodone-acetaminophen (NORCO) 5-325 MG per tablet Take 1 tablet by mouth every 6 (six) hours as needed for Pain. 03/05/13 03/15/13 Scott Martínez MD insulin aspart (NOVOLOG) 100 UNIT/ML injection Inject 3 Units into the skin 3 (three) times daily before meals. Historical Provider insulin aspart (NOVOLOG) 100 UNIT/ML injection Inject 0-10 Units into the skin 3 (three) ti mes daily before meals. Sliding Scale Less than 60 = no insulin 1 - 70 = 2 units after the meal 71 - 1 = 3 units 101 - 120 = 4 units 121 - 150 = 5 units 151 - 180 = 6 units 181 - 210 = 7 units 211 - 240 = 8 units 241 - 270 = 9 units Greater than 270 = 10 units Call MD for greater than 270 or less than 60 Historical Provider insulin glargine (LANTUS) 100 UNIT/ML injection Inject 10 Units into the skin nightly. H istorical Provider linagliptin (TRADJENTA) 5 MG tablet Take 5 mg by mouth daily. Historical Provider lisinopril (PRINIVIL,ZESTRIL) 40 MG tablet Take 1 tablet by mouth daily. 03/05/13 03/05/14 Ginny Martínez MD loperamide (IMODIUM) 2 MG capsule Take 2 mg by mouth as needed. 4 mg after first loose stoo l, then 2 mg after each further loose stool Not to exceed 8 mg per day. Historical Provider LORazepam (ATIVAN) 0.5 MG tablet Take 0.5 mg by mouth every 6 (six) hours as needed. Indica tions: Feeling Anxious Historical Provider nebivolol (BYSTOLIC) 10 MG tablet Take 20 mg by mouth daily. Historical Provider nitroGLYCERIN (NITROSTAT) 0.[address] 0.4 mg under the tongue every 5 (five) min utes as needed. Historical Provider pantoprazole (PROTONIX) 40 MG tablet Take 1 tablet by mouth every morning before breakfast. 03/05/13 03/05/14 Scott Martínez MD paroxetine (PAXIL) 40 MG tablet Take 40 mg by mouth every morning. Historical Provider pravastatin (PRAVACHOL) 20 MG tablet Take 20 mg by mouth nightly. Historical Provider tiotropium (SPIRIVA) 18 MCG inhalation capsule Inhale 18 mcg into the lungs daily. Histo rical Provider No Known Allergies History Social History Marital Status: Spouse Name: N/A Number of Children: 1 Years of Education: N/A Occupational History Not on file. Social History Main Topics Smoking status: Never Smoker Smokeless tobacco: Never Used Alcohol Use: Yes Comment: occasional Drug Use: No Sexually Active: Not Currently Other Topics Concern Not on file Social History Narrative Lives in custodial, IADL, full code Family History Problem Relation Age of Onset Heart disease Father Heart disease Sister Diabetes type II Sister Review of Systems Constitutional: Negative for fever, chills Eyes: Negative for vision changes Nose: Negative for congestion, nosebleeds Throat: Negative for sore throat CV/Resp: Negative for chest pain, [id number], cough GI: Negative for vomiting, or diarrhea Positive for abdominal pain and nausea : Negative for urinary problems Musculoskeletal: Negative for back pain, joint pain Skin: Negative for rash Neuro/Psych: Negative for headache Endo/heme/Lymph: Negative for swollen lymph nodes, easy bruising All other systems reviewed and negative except as noted. Physical Exam BP 203/98 | Pulse 72 | Temp 98.3 F (36.8 C) (Oral) | SpO2 94% Vital signs interpretation: Hypertensive, otherwise WNL Pulse Oximetry interpretation: Normal General: Alert, in no apparent distress Eyes: Normal inspection, pupils equal and round, non-icteric ENT: Ears normal Nose normal Pharynx normal Neck: Normal inspection Supple Cardiovascular: Rate and rhythm normal No murmurs Respiratory: Breath sounds normal bilaterally No rales, wheezing or rhonchi Abdomen: Diffusely tender to the entire abd Soft, non-distended No guarding or rebound Back: Normal inspection Skin: Color normal Warm and dry No rash Neuro: Alert, no AMS No gross motor/sensory deficits Medical Decision Making and Emergency Department Course ED Department Course Patient presents to ED with complaints of abdominal pain. On exam the patient has diffuse a bd tenderness. My DDx includes, but is not limited to: SBO, perforation post colonoscopy, ga stroenteritis, vs. other. Will order labs, XR, and reevaluate the patient. 3:17 AM Labs reviewed and remarkable for: mildly elevated WBC; will have pt return for repe at labs. Pt CRP is 1.0, but this is an improvement from 21.0 from past records. 3:19 AM Medication, Zofran, given IV. 4:14 AM Pt reevaluation. Pt is stable at this time. 4:20 AM XR reviewed and is significant for: marked increase in stool. 4:34 AM Patient reevaluation. Pt has been advised to return to the ED tomorrow for repeat lab work to monitor his WBC elevation. Patient is stable at this time. I discussed all ED re sults and my clinical impression with the patient. I advised patient to follow up with a PC P and we discussed the emergent signs and symptoms that would necessitate a return to ED. Charly pereyra questions and concerns addressed. Will discharge home with Rx for Glycolax. Patient is quang dy for discharge. He has no localizing pain. His glucose is up. We will recheck in 24 hours on . Records Reviewed Old medical records. Nursing notes. Previous ED visits for similar and unrelated complaints. Laboratory Evaluation Results Procedure Component Value Ref Range Date/Time Complete Metabolic Panel [[id number]] (Abnormal) Collected:03/13/13249 Order Status:Completed Updated:03/13/13344 Specimen Information:Blood SODIUM 136 135 - 143 mmol/L POTASSIUM 3.7 3.5 - 4.9 mmol/L CHLORIDE 102 99 - 109 mmol/L CO2 27 23 - 32 mmol/L ANION GAP AGAP 11 5 - 20 mmol/L GLUCOSE 298 (H) 65 - 99 mg/dL BUN 17 8 - 25 mg/dL CREATININE 1.23 0.70 - 1.30 mg/dL BUN/CREAT 14 CALCIUM 8.7 8.5 - 10.2 mg/dL TOTAL PROTEIN 7.2 6.3 - 8.2 g/dL Albumin 3.3 (L) 3.6 - 5.0 g/dL GLOBULIN 3.9 1.3 - 4.9 g/dL A/G 0.8 (L) 1.0 - 2.4 TBIL 0.3 0.1 - 1.5 mg/dL ALK PHOS 102 35 - 115 U/L AST 22 10 - 45 U/L ALT 30 10 - 65 U/L EGFR >60 >60 mL/min/1.73m2 C-Reactive Protein [[id number]] (Abnormal) Collected:03/13/13249 Order Status:Completed Updated:03/13/13344 Specimen Information:Blood CRP 1.0 (H) <0.5 mg/dL Lipase [[id number]] Collected:03/13/13249 Order Status:Completed Updated:03/13/13344 LIPASE 166 73 - 393 U/L Urine Microscopic [[id number]] (Abnormal) Collected:03/13/13308 Order Status:Completed Updated:03/13/13332 Specimen Information:Urine / Urine, Clean Catch WBC NONE SEEN 0 - 5 /hpf RBC NONE SEEN 0 - 2 /hpf EPITHELIAL 0-2 /lpf BACTERIA TRACE (A) NONE SEEN CBC w Auto Diff [[id number]] (Abnormal) Collected:03/13/13249 Order Status:Completed Updated:03/13/13316 Specimen Information:Blood WBC 16.4 (H) 3.8 - 11.0 K/uL RBC 4.77 4.20 - 5.70 M/uL HGB 13.3 13.2 - 17.0 g/dL HCT 39.1 39.0 - 50.0 % MCV 81.9 80.0 - 100.0 fl MCH 27.8 27.0 - 34.0 pg MCHC 34.0 32.0 - 35.5 g/dL RDW SD 44.2 37 - 53 fl PLT 245 150 - 400 K/uL MPV 7.7 fl DIFF TYPE AUTOMATED NEUTROPHILS 84.7 % LYMPHOCYTES 8.1 % MONOCYTES 5.7 % EOSINOPHILS 1.4 % BASOPHILS 0.1 % NEUTROPHILS ABS 13.9 (H) 1.9 - 7.4 K/uL LYMPHOCYTES ABS 1.3 1.0 - 3.9 K/uL MONOCYTES ABS 0.9 (H) 0 - 0.8 K/uL EOSINOPHILS ABS 0.2 0 - 0.5 K/uL BASOPHILS ABS 0.0 0 - 0.1 K/uL POC clinitek 10 [[id number]] (Abnormal) Collected:03/13/13232 Order Status:Completed Updated:03/13/13237 Color, UA YELLOW Clarity, UA CLEAR Glucose, UA 500 (A) NEGATIVE mg/dL Bilirubin, UA NEGATIVE NEGATIVE Ketones, UA NEGATIVE NEGATIVE mg/dL Spec Grav, UA 1.020 1.001 - 1.035 Blood, UA NEGATIVE NEGATIVE pH, UA 7.5 4.6 - 8.0 Protein, UA NEGATIVE NEGATIVE mg/dL Urobilinogen, UA 0.2 <1.1 mg/dL Nitrite, UA NEGATIVE NEGATIVE WBC, UA NEGATIVE NEGATIVE I personally reviewed the lab results and they have been posted to the chart. Pertinent po sitive and negative findings have been addressed appropriately. Radiology and EKG Evaluation Imaging Results XR Acute Abdominal Series (Preliminary result) Result time:03/13/13419 ED Interpretation Documented by Gurvinder Cruz MD (03/13/13419, [facility] Emergency Department, Emergency Medicine) No obstruction No free air Marked increase in stool ED Diagnoses Final diagnoses Abdominal pain Constipation Disposition: ED Disposition Discharge Condition at discharge: Stable Follow-up Information Follow up With Details Comments Contact Info [facility] Emergency Department If symptoms worsen [address] [address] [address] [place] As needed [address] [facility] [address] Discharge Medications: New Prescriptions POLYETHYLENE GLYCOL (GLYCOLAX) POWDER Sig one capful in 8 oz of water two times a day f or five days then once a day. Additional Documentation Procedures Attending Note: Documentation assistance provided by Tarah Caldwell (Scribe). Information recorded by the scribe has been reviewed and validated by me. Troy laughlin with its contents. MD Gurvinder Cummins MD 03/13/13515 onversio n Transaction, Provider Unknown - 03/13/2013 2:00 AM PSTFormatting of this note might be di fferent from the original. ED Notes by Shree Reilly RN at 03/13/13199 Author: Shree Reilly RN Service: (none) Author Type: Registered Nurse Filed: 03/13/13199 Date of Service: 03/13/13199 Status: Signed Utility Arborist: Shree Reilly RN (Registered Nurse) Patient given instructions on how to obtain a clean catch urine specimen. Patient verbaliz ed understanding. Specimen cup and towelettes provided. Patient to bathroom to attempt col lection. Shree Reilly RN 03/13/13199 docume nted in this encounter Plan of Treatment +--------+---------+ + + + | Date | Type | Specialty | Care Team | Description | +--------+---------+ + + + | 08/05/ | Office | Geriatric Medicine | Mireya Pack, | | | 2019 | Visit | | SYSTEMS AUD[employer]OR [address] | | | | | | [address] [place], | | | | | | [place] [address] | | | | | | [phone] | | | | | | | | +--------+---------+ + + + | 09/29/ | Office | Urology | Mireya Pack, | | | 2019 | Visit | | SYSTEMS AUDITOR [address] | | | | | | [address] [place], | | | | | | [place] [address] | | | | | | [phone] | | | | | | | | | | | | oTy Wild, DO | | | | | | [address] | | | | | | [place] [address] | | | | | | [phone] | | | | | | | | +--------+---------+ + + + documented as of this encounter Procedures + +--------+ + + + | Procedure Name | Priori | Date/Time | Associated Diagnosis | Comments | | | ty | | | | + +--------+ + + + | URINALYSIS, | Routin | 03/13/2013 | | Results for this | | MICROSCOPIC ONLY | e | 3:09 AM | | procedure are in the | | | | PST | | results section. | + +--------+ + + + | XR ABDOMEN AP | Routin | 03/13/2013 | | Results for this | | UPRIGHT KUB AND PA | e | 3:02 AM | | procedure are in the | | CHEST | | PST | | results section. | + +--------+ + + + | EXTERNAL LAB: CBC | Routin | 03/13/2013 | | Results for this | | | e | 2:50 AM | | procedure are in the | | | | PST | | results section. | + +--------+ + + + | C-REACTIVE PROTEIN | Routin | 03/13/2013 | | Results for this | | | e | 2:50 AM | | procedure are in the | | | | PST | | results section. | + +--------+ + + + | LIPASE | Routin | 03/13/2013 | | Results for this | | | e | 2:50 AM | | procedure are in the | | | | PST | | results section. | + +--------+ + + + | COMPREHENSIVE | Routin | 03/13/2013 | | Results for this | | METABOLIC PANEL | e | 2:50 AM | | procedure are in the | | | | PST | | results section. | + +--------+ + + + documented in this encounter Results Urinalysis, Microscopic Only (03/13/2013 3:09 AM PST) + + + + + + | Component | Value | Ref Range | Performed | Pathologist | | | | | At | Signature | + + + + + + | WBC, UA | NONE SEENComment: | 0 - 5 /hpf | EXTERNAL | | | | Testing performed at | | LAB | | | | [facility];[place] [address] | | | | + + + + + + | RBC, UA | NONE SEENComment: | 0 - 2 /hpf | EXTERNAL | | | | Testing performed at | | LAB | | | | [facility];[place] [address] | | | | + + + + + + | Epithelial | 0-2Comment: Testing | /lpf | EXTERNAL | | | Cells | performed at [facility] | | LAB | | | [address];[place] | | | | | | [address] | | | | + + + + + + | Bacteria, | TRACE (A)Comment: | | EXTERNAL | | | UA | Testing performed at | | LAB | | | | [facility];[address];[place] [address] | | | | + + + + + + + + | Specimen | + + | Urine specimen | | (specimen) | + + + +---------+ + + | Performing | Address | City/State/Zipcode | Phone Number | | Organization | | | | + +---------+ + + | EXTERNAL LAB | | | | + +---------+ + + XR Abd Supine and Upright w 1 Vw Chest (03/13/2013 3:02 AM PST) + + | Specimen | + + | | + + + + + | Impressions | Performed At | + + + | 1. No acute findings of the abdomen or pelvis. 2. Possible mild | | | pneumonia the left lung base. 3. Cholecystectomy. | | | | | + + + + + + | Narrative | Performed At | + + + | [facility] 03/13/2013 3:02 AM | | | History: 57 years. Male. Acute abdominal pain. Technique: | | | Supine and erect views of the abdomen were performed with a PA view of | | | the chest Findings: A large amount of fecal material is noted | | | in the right colon. The remainder the colon appears empty. No dilated | | | bowel visualized. No free peritoneal gas or fluid visualized on | | | upright or supine images. Surgical clips are noted in the | | | gallbladder fossa. No mesenteric mass is noted. Visible organ | | | margins are normal. No urological calcifications or renal masses seen. | | | There may be mild alveolar infiltrate the left lung base | | | suggesting mild pneumonia. The remaining lung kong are clear. The | | | cardiac volume is normal. | | + + + + + | Procedure Note | + + | Richard, Rad Conversion - 09/21/2018 3:31 PM PDT [facility] | | SERIES03/13/2013 3:02 AM History: 57 years. Male. Acute abdominal pain. Technique: | | Supine and erect views of the abdomen were performed with a PA view of the chest | | Findings: A large amount of fecal material is noted in the right colon. The remainder | | the colon appears empty. No dilated bowel visualized. No free peritoneal gas or fluid | | visualized on upright or supine images. Surgical clips are noted in the gallbladder | | fossa. No mesenteric mass is noted. Visible organ margins are normal. No urological | | calcifications or renal masses seen. There may be mild alveolar infiltrate the left lung | | base suggesting mild pneumonia. The remaining lung kong are clear. The cardiac volume | | is normal. IMPRESSION: 1. No acute findings of the abdomen or pelvis.2. Possible mild | | pneumonia the left lung base.3. Cholecystectomy. | | | |IMPRESSION: | |1. No acute findings of the abdomen or pelvis. | |2. Possible mild pneumonia the left lung base. | |3. Cholecystectomy. | | | | | + + External Lab: CBC (03/13/2013 2:50 AM PST) + + + + + + | Component | Value | Ref Range | Performed | Pathologist | | | | | At | Signature | + + + + + + | WBC | 16.4 (H)Comment: Testing | 3.8 - 11.0 K/uL | EXTERNAL | | | | performed at [facility];[address] | | LAB | | | [address];[place] | | | | | | [address] | | | | + + + + + + | Non- | 4.77Comment: Testing | 4.20 - 5.70 | EXTERNAL | | | Red Blood | performed at [facility];[address] | M/uL | LAB | | | Cells | [address];[place] | | | | | Counted | [id number] | | | | + + + + + + | Hemoglobin | 13.3Comment: Testing | 13.2 - 17.0 | EXTERNAL | | | | performed at [facility];[address] | g/dL | LAB | | | | [address];[place] | | | | | | [address] | | | | + + + + + + | Hematocrit, | 39.1Comment: Testing | 39.0 - 50.0 % | EXTERNAL | | | POC | performed at [facility];[address] | | LAB | | | | [address];[place] | | | | | | [address] | | | | + + + + + + | MCV | 81.9Comment: Testing | 80.0 - 100.0 fl | EXTERNAL | | | | performed at [facility];[address] | | LAB | | | [address];[place] | | | | | | [address] | | | | + + + + + + | MCH | 27.8Comment: Testing | 27.0 - 34.0 pg | EXTERNAL | | | | performed at [facility];[address] | | LAB | | | [address];[place] | | | | | | [address] | | | | + + + + + + | MCHC | 34.0Comment: Testing | 32.0 - 35.5 | EXTERNAL | | | | performed at [facility];[address] | g/dL | LAB | | | | [address];[place] | | | | | | [address] | | | | + + + + + + | RDW-CV | 44.2Comment: Testing | 37 - 53 fl | EXTERNAL | | | | performed at [facility];[address] | | LAB | | | [address];[place] | | | | | | [address] | | | | + + + + + + | Platelet | 245Comment: Testing | 150 - 400 K/uL | EXTERNAL | | | Count | performed at [facility];[address] | | LAB | | | Plasma | [address];[place] | | | | | | [address] | | | | + + + + + + | MPV | 7.7Comment: Testing | fl | EXTERNAL | | | | performed at [facility];[address] | | LAB | | | [address];[place] | | | | | | [address] | | | | + + + + + + | Differentia | AUTOMATEDComment: | | EXTERNAL | | | l Type | Testing performed at | | LAB | | | | [facility];[address];[place] [address] | | | | + + + + + + | % Segmented | 84.7 | % | EXTERNAL | | | | | | LAB | | | Neutrophils | | | | | + + + + + + | % | 8.1 | % | EXTERNAL | | | Lymphocytes | | | LAB | | + + + + + + | % Monocytes | 5.7 | % | EXTERNAL | | | | | | LAB | | + + + + + + | % | 1.4 | % | EXTERNAL | | | Eosinophils | | | LAB | | + + + + + + | % Basophils | 0.1 | % | EXTERNAL | | | | | | LAB | | + + + + + + | Absolute | 13.9 (H) | 1.9 - 7.4 K/uL | EXTERNAL | | | Segmented | | | LAB | | | Neutrophils | | | | | + + + + + + | Absolute | 1.3 | 1.0 - 3.9 K/uL | EXTERNAL | | | Lymphocytes | | | LAB | | + + + + + + | Absolute | 0.9 (H) | 0 - 0.8 K/uL | EXTERNAL | | | Monocytes | | | LAB | | + + + + + + | Absolute | 0.2 | 0 - 0.5 K/uL | EXTERNAL | | | Eosinophils | | | LAB | | + + + + + + | Absolute | 0.0 | 0 - 0.1 K/uL | EXTERNAL | | | Basophils | | | LAB | | + + + + + + + + | Specimen | + + | Blood specimen | | (specimen) | + + + +---------+ + + | Performing | Address | City/State/Zipcode | Phone Number | | Organization | | | | + +---------+ + + | EXTERNAL LAB | | | | + +---------+ + + C-Reactive Protein (03/13/2013 2:50 AM PST) + + + + + + | Component | Value | Ref Range | Performed | Pathologist | | | | | At | Signature | + + + + + + | CRP | 1.0 (H)Comment: Testing | mg/dL | EXTERNAL | | | | performed at [facility];[address] | | LAB | | | | [address];[place] | | | | | | [address] | | | | + + + + + + + + | Specimen | + + | Blood specimen | | (specimen) | + + + +---------+ + + | Performing | Address | City/State/Zipcode | Phone Number | | Organization | | | | + +---------+ + + | EXTERNAL LAB | | | | + +---------+ + + Lipase (03/13/2013 2:50 AM PST) + + + + + + | Component | Value | Ref Range | Performed | Pathologist | | | | | At | Signature | + + + + + + | Lipase | 166Comment: Testing | 73 - 393 U/L | EXTERNAL | | | | performed at [facility];[address] | | LAB | | | | [address];[place], [place] | | | | | | [address] | | | | + + + + + + + + | Specimen | + + | | + + + +---------+ + + | Performing | Address | City/State/Zipcode | Phone Number | | Organization | | | | + +---------+ + + | EXTERNAL LAB | | | | + +---------+ + + Comprehensive Metabolic Panel (03/13/2013 2:50 AM PST) + + + + + + | Component | Value | Ref Range | Performed | Pathologist | | | | | At | Signature | + + + + + + | Na | 136Comment: Testing | 135 - 143 | EXTERNAL | | | | performed at [facility];888 | mmol/L | LAB | | | | [address];[place] | | | | | | [address] | | | | + + + + + + | K | 3.7Comment: Testing | 3.5 - 4.9 | EXTERNAL | | | | performed at [facility];888 | mmol/L | LAB | | | | [address];[place] | | | | | | [address] | | | | + + + + + + | Cl | 102Comment: Testing | 99 - 109 mmol/L | EXTERNAL | | | | performed at [facility];888 | | LAB | | | | [address];[place] | | | | | | [address] | | | | + + + + + + | CO2 | 27Comment: Testing | 23 - 32 mmol/L | EXTERNAL | | | | performed at [facility];888 | | LAB | | | | [address];[place] | | | | | | [address] | | | | + + + + + + | Anion Gap | 11Comment: Testing | 5 - 20 mmol/L | EXTERNAL | | | | performed at [facility];888 | | LAB | | | | [address];[place] | | | | | | [address] | | | | + + + + + + | Glucose, | 298 (H)Comment: Testing | 65 - 99 mg/dL | EXTERNAL | | | Fasting | performed at [facility];[address] | | LAB | | | | [address];[place] | | | | | | [address] | | | | + + + + + + | BUN | 17Comment: Testing | 8 - 25 mg/dL | EXTERNAL | | | | performed at [facility];[address] | | LAB | | | | [address];[place] | | | | | | [address] | | | | + + + + + + | Creatinine | 1.23Comment: Testing | 0.70 - 1.30 | EXTERNAL | | | | performed at [facility];888 | mg/dL | LAB | | | | [address];[place] | | | | | | [address] | | | | + + + + + + | BUN/Creatin | 14Comment: Testing | | EXTERNAL | | | ine Ratio | performed at [facility];[address] | | LAB | | | | [address];[place] | | | | | | [address] | | | | + + + + + + | Calcium | 8.7Comment: Testing | 8.5 - 10.2 | EXTERNAL | | | | performed at [facility];888 | mg/dL | LAB | | | | [address];[place] | | | | | | [address] | | | | + + + + + + | Protein, | 7.2Comment: Testing | 6.3 - 8.2 g/dL | EXTERNAL | | | Total | performed at [facility];[address] | | LAB | | | | [address];[place] | | | | | | [address] | | | | + + + + + + | Albumin | 3.3 (L)Comment: Testing | 3.6 - 5.0 g/dL | EXTERNAL | | | | performed at [facility];[address] | | LAB | | | | [address];[place] | | | | | | [address] | | | | + + + + + + | Globulin | 3.9Comment: Testing | 1.3 - 4.9 g/dL | EXTERNAL | | | | performed at [facility];[address] | | LAB | | | | [address];[place] | | | | | | [address] | | | | + + + + + + | A/G Ratio | 0.8 (L)Comment: Testing | 1.0 - 2.4 | EXTERNAL | | | | performed at [facility];[address] | | LAB | | | | [address];[place] | | | | | | [address] | | | | + + + + + + | Bilirubin | 0.3Comment: Testing | 0.1 - 1.5 mg/dL | EXTERNAL | | | Total | performed at [facility];[address] | | LAB | | | | [address];[place] | | | | | | [address] | | | | + + + + + + | ALP, | 102Comment: Testing | 35 - 115 U/L | EXTERNAL | | | External | performed at [facility];[address] | | LAB | | | | [address];[place] | | | | | | [address] | | | | + + + + + + | AST | 22Comment: Testing | 10 - 45 U/L | EXTERNAL | | | | performed at [facility];[address] | | LAB | | | | [address];[place] | | | | | | [address] | | | | + + + + + + | ALT | 30Comment: Testing | 10 - 65 U/L | EXTERNAL | | | | performed at [facility];[address] | | LAB | | | | [address];[place] | | | | | | [address] | | | | + + + + + + | Estimated | >60Comment: GFR <60: | mL/min/1.73m2 | EXTERNAL | | | GFR | CHRONIC KIDNEY DISEASE, | | LAB | | | | IF FOUND OVER A 3 MONTH | | | | | | PERIOD.GFR <15: KIDNEY | | | | | | FAILURE.FOR | | | | | | AMERICANS, MULTIPLY THE | | | | | | CALCULATED GFR BY | | | | | | 1.210.Testing performed | | | | | | at [facility];[address] | | | | | | [address];[place] [address] | | | | + + + + + + + + | Specimen | + + | Blood specimen | | (specimen) | + + + +---------+ + + | Performing | Address | City/State/Zipcode | Phone Number | | Organization | | | | + +---------+ + + | EXTERNAL LAB | | | | + +---------+ + + documented in this encounter Visit Diagnoses + + | Diagnosis | + + | Abdominal pain Abdominal pain, unspecified site | + + | Constipation Unspecified constipation | + + documented in this encounter"
--- OUTSIDE RECORDS SUMMARY | ~2019-09-09 | XMS | Encounter Summary ---
Demographics + + + | Address | [address] | | | [place] [address] | + + + | Home Phone | | + + + | Preferred Language | Unknown | + + + | Marital Status | | + + + | Yazidi Affiliation | 1027 | + + + | Race | Unknown | + + + | Ethnic Group | Unknown | + + + Author + + + | Author | [facility] | | | and [place] | + + + | Organization | [facility] | | | and [place] | + + + | Address | Unknown | + + + | Phone | Unavailable | + + + Support + + + + + | Name | Relationship | Address | Phone | + + + + + | Sammi Kohler | ECON | [place] [address] | | + + + + + Care Team Providers + +------+ + | Care Battery Starter Name | Role | Phone | + +------+ + | Mireya Pack NP | PCP | | + +------+ + Reason for Visit + +--------+ + | Reason | Onset | Comments | | | Date | | + +--------+ + | Medical Problem | 11/08/ | Humalog not covered | | | 2018 | | + +--------+ + Encounter Details +--------+ + + + + | Date | Type | Department | Care Team | Description | +--------+ + + + + | 11/08/ | Telephone | [facility] | Mel Morton, | Medical Problem | | 2019 | | [facility] [address] | Elevator Erector Helper | (Renzo not | | | | [address] | | covered) | | | | [place], [place] | | | | | | [address] | | | | | | [phone] | | | +--------+ + + + [...] Miscellaneous Notes Telephone Encounter - Mel Morton, Elevator Erector Helper - 11/08/2018 11:11 AM PDTCalled pharmacy and spoke with pharmacist and advised of PCP notes. Pharmacist stated he would glass ge to Novolog. 11: 12 AM PDTTelephone Encounter - Mireya Pack NP - 11/08/2018 10:55 AM PDTPlease call req uest change to novolog same instructions Electronically signed by Mireya Pack NP at 04/2018 10:56 AM PDTTelephone Encounter - Mel Morton Elevator Erector Helper - 11/08/2018 9:58 AM PDTReceived fax from pharmacy stating Humalog is not covered by patient's insurance . Please advise if patient can be changed to Novolog. Thank you! documented in this encounter Plan of Treatment +--------+---------+ + + + | Date | Type | Specialty | Care Team | Description | +--------+---------+ + + + | 09/10/ | Office | Geriatric Medicine | Mireya aPck, | | | 2019 | Visit | | [employer]HER PL[employer] [address] | | | | | | [address] [place], | | | | | | [place] [address] | | | | | | [phone] | | | | | | | | +--------+---------+ + + + | 09/29/ | Office | Urology | Mireya Pack, | | | 2019 | Visit | | [employer] PLANT OPERATOR [address] | | | | | | [address] [place], | | | | | | [place] [address] | | | | | | [phone] | | | | | | | | | | | | Toy Wild, DO | | | | | | [address] | | | | | | [place] [address] | | | | | | [phone] | | | | | | | | +--------+---------+ + + + documented as of this encounter Visit Diagnoses Not on filedocumented in this encounter"
--- OUTSIDE RECORDS SUMMARY | ~2019-09-09 | XMS | Encounter Summary ---
Demographics + + + | Address | [address] | | | [place] [address] | + + + | Home Phone | | + + + | Preferred Language | Unknown | + + + | Marital Status | | + + + | Pentecostal Affiliation | 1027 | + + + | Race | Unknown | + + + | Ethnic Group | Unknown | + + + Author + + + | Author | [facility] | | | and [place] | + + + | Organization | [facility] | | | and [place] | + + + | Address | Unknown | + + + | Phone | Unavailable | + + + Support + + + + + | Name | Relationship | Address | Phone | + + + + + | Sammi Kohler | ECON | [place] [address] | | + + + + + Care Team Providers + +------+ + | Care Communications Supervisor Name | Role | Phone | + +------+ + | Mireya Pack NP | PCP | | + +------+ + Reason for Visit + + + | Reason | Comments | + + + | Headache (Adult - | | | New Onset Or New | | | Symptoms) | | + + + | Dizziness | | + + + | Hypertension | reported | + + + Encounter Details +--------+ + + + + | Date | Type | Department | Care Team | Description | +--------+ + + + + | 01/25/ | Emergency | [facility] | Breanne Hurtado, | Acute intractable | | 2019 | | MEDICAL CENTER | DO [address] | headache, | | | | EMERGENCY CENTER | [place] [address] | unspecified headache | | | | [address] | [phone] | type (Primary Dx) | | | | [place], [place] | | | | | | [address] | | | | | | [phone] | | | +--------+ + + + [...] + + + | Blood Pressure | 147/67 | 01/25/2019 9:43 AM | | | | | PST | | + + + + + | Pulse | 74 | 01/25/2019 9:43 AM | | | | | PST | | + + + + + | Temperature | 37.1 C (98.7 F) | 01/25/2019 9:43 AM | | | | | PST | | + + + + + | Respiratory Rate | 21 | 01/25/2019 9:43 AM | | | | | PST | | + + + + + | Oxygen Saturation | 97% | 01/25/2019 9:43 AM | | | | | PST | | + + + + + | Inhaled Oxygen | - | - | | | Concentration | | | | + + + + + | Weight | 99.5 kg (219 lb 5.7 | 01/25/2019 6:57 AM | | | | oz) | PST | | + + + + + | Height | - | - | | + + + + + | Body Mass Index | 30.59 | 01/10/2019 5:26 AM | | | | | PST | | + + + + + [...] following attachments cannot be sent through Care Everywhere.Headaches, Self -Care for (Maltese)documented in this encounter Medications at Time of Discharge [...] + + + +---------+ + + | acetaminophen | Take 2 tablets by | 30 | 1 | 10/17/19 | | | (TYLENOL) 325 mg | mouth every 4 hours | tablet | | 19 | 0 | | tablet | as needed for Pain | | | | | | | (or fever >= 38.6 C | | | | | | | (101.5 F)). | | | | | + + + +---------+ + + | apixaban (ELIQUIS) | Take 1 tablet by | 60 | 4 | 11/08/19 | | | 5 mg tablet | mouth 2 times daily. | tablet | | 19 | 0 | + + + +---------+ + + | ARIPiprazole | Take 1 tablet by | 30 | 4 | 11/08/19 | | | (ABILIFY) 5 mg | mouth Daily. | tablet | | 19 | 0 | | tablet | | | | | | + + + +---------+ + + | Blood Glucose | Dispense brand per | 1 each | 0 | 11/08/19 | | | Monitoring Suppl | patient preference | | | 19 | 0 | | (BLOOD GLUCOSE | | | [...] puffs into | 1 | 0 | 11/02/19 | | | budesonide-formotero | the lungs 2 times | Inhaler | | 19 | 0 | | l (SYMBICORT) | daily. | | | | | | 160-4.5 mcg/puff | | | | | | | inhaler | | | | | | + + + +---------+ + + | carvedilol (COREG) | Take 1 tablet by | 60 | 4 | 11/08/19 | | | 12.5 mg tablet | mouth 2 times daily | tablet | | 19 | 0 | | | (with breakfast & | | | | | | | dinner). | | | | | + + + +---------+ + + | finasteride | Take 1 tablet by | 30 | 4 | 11/08/19 | | | (PROSCAR) 5 mg | mouth Daily. | tablet | | 19 | 0 | | tablet | | | | | | + + + +---------+ + + | Glucose Blood | For blood sugar | 200 | 11 | 11/08/19 | | | (BLOOD GLUCOSE TEST | testing 4 times | each | | 19 | 0 | | STRIPS) | daily | | [...] Take 1 tablet by | 60 | 4 | 11/08/19 | | | (APRESOLINE) 25 mg | mouth 2 times daily. | tablet | | 19 | 0 | | tablet | | | | | | + + + +---------+ + + | insulin aspart | Inject 5 Units under | | 0 | | | | (NOVOLOG FLEXPEN) | the skin 3 times | | | | 0 | | 100 units/mL | daily (before | | | | | | injection pen | meals). Plus sliding | | | | | | | scale | | | | | + + + +---------+ + + | insulin detemir | Inject 60 Units | 12 mL | 0 | 12/27/19 | | | (LEVEMIR FLEXTOUCH) | under the skin | | | 19 | 0 | | 100 units/mL | nightly. | | | | | | injection (pen) | | | | | | + + + +---------+ + + | Insulin Pen Needle | For insulin | 200 | 11 | 11/08/19 | | | (BD PEN NEEDLE KYAW | administration 4 | each | | 19 | 0 | | U/F) 32G X 4 MM [...] (ACCU-CHEK | 1 each by Other | 204 | 0 | 11/02/19 | | | MULTICLIX) | route 4 times daily. | each | | 19 | 0 | | MISCIndications: | | | | | | | Type 2 diabetes | | | | | | | mellitus with | | | | | | | hyperglycemia, with | | | | | | | long-term current | | | | | | | use of insulin ([facility]) | | | | | | + + + +---------+ + + | lisinopril | Take 2 tablets by | 60 | 4 | 11/08/19 | | | (PRINIVIL, ZESTRIL) | mouth Daily. | tablet | | 19 | 0 | | 10 mg tablet | | | | | | + + + +---------+ + + | metFORMIN | Take 1 tablet by | 60 | 4 | 11/08/19 | | | (GLUCOPHAGE) 500 mg | mouth 2 times daily | tablet | | 19 | 0 | | tablet | (with breakfast & | | | | | | | dinner). | | | | | + + + +---------+ + + | NIFEdipine (ADALAT | Take 1 tablet by | 30 | 4 | 11/08/19 | | | CC) 60 MG 24 hr | mouth Daily. | tablet | | 19 | 0 | | tablet | | | | | | + + + +---------+ + + | omeprazole | Take 1 capsule by | 30 | 4 | 12/27/19 | | | (PRILOSEC) 20 mg | mouth every morning | capsule | | 19 | 0 | | capsule | (before breakfast). | | | | | + + + +---------+ + + | tamsulosin | Take 1 capsule by | 60 | 4 | 11/08/19 | | | (FLOMAX) 0.4 mg CAPS | mouth 2 times daily. | capsule | | 19 | 0 | + + + +---------+ + + documented as of this encounter ED Notes Marques Murphy RN - 01/25/2019 9:44 AM PSTPt not willing to wait for recheck of blood sugar. Pt states he has to be at the [facility] by 0945 to be picked up by [employer] and not one minute late. A M Breanne Licona DO - 01/25/2019 7:13 AM PST [facility] Department of Emergency Medicine 01/25/2019 7:13 AM No flowsheet data found. History of Present Illness Patient Identification Norah Gr is a 63 y.o. male. Patient information was obtained from patient History/Exam limitations: none. Patient presented to the Emergency Department by: Car Chief Complaint Chief Complaint Patient presents with Headache (Adult - New Onset Or New Symptoms) Dizziness Hypertension reported 63 y.o. male with history of diabetes on insulin, Afib on Eliquis, developmental delay pres ents to the ED complaining of headache. Onset of symptoms was last night, with a constant co urse since that time. He indicates that he was not able to come to the ED last night because the transits weren't running anymore. Care prior to arrival consisted of medication for the headache, with no relief. The patient also complains of weakness, speech problems. Patient states that he is in the E D today because he has been so weak that he has to use his cane. Patient denies any other symptoms. PCP: Mireya Pack NP Past Medical History: Diagnosis Date Acute pulmonary embolism (HCC) 10/14/2017 Anxiety ARF (acute renal failure) (HCC) 03/02/2013 Atrial fibrillation (HCC) Basal cell carcinoma 09/26/2012 arm and back COPD (chronic obstructive pulmonary disease) (HCC) 03/02/2013 hypoxemia on 2 lts nc Depression Development delay Diabetes mellitus type II DVT (deep venous thrombosis) (HCC) 03/29/2018 Facial droop 07/08/2013 GIB (gastrointestinal bleeding) 03/02/[address] Nur, rectal ulcers, nodule of GE junction Hypercholesterolemia 07/08/2013 Hyperlipidemia Hypertension terminologist (current) use of 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 Obesity, Class I, BMI 30-34.9 07/08/2013 WARD (obstructive sleep apnea) 08/11/2012 does not use CPAP because of the noise Other chronic pain Renal failure Stroke (HCC) TIA (transient ischemic attack) Unspecified visual disturbance reading glasses Past Surgical History: Procedure Laterality Date ABDOMEN SURGERY CHOLECYSTECTOMY CHOLECYSTECTOMY, LAPAROSCOPIC 09/12/2012 Procedure: LAPAROSCOPIC - CHOLECYSTECTOMY; Surgeon: Jevon Vargas DO; Location: [facility] MAIN OR; Service: General; 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; COLONOSCOPY COLONOSCOPY 03/04/2013 Procedure: COLONOSCOPY; Surgeon: Howie Gibson MD; Location: [facility] ENDOSCOPY; Service: Gastroen terology; 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; HERNIA REPAIR 07/03/2013 Procedure: LAPAROSCOPIC - HERNIA - INCISIONAL; Surgeon: Jevon Vargas DO; Location: [facility] MAIN OR; Service: General; 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; KNEE SURGERY rt knee, patella LEG SURGERY LLE OTHER SURGICAL HISTORY UNLISTED PROCEDURE ARTHROSCOPY OTHER SURGICAL HISTORY Left 05/05/2014 SKIN LESION EXCISION - Procedure: EXCISION - LESION - FROZEN SECTION; Surgeon: Sy murcia MD; Location: [facility] MAIN OR; Service: Plastics; Laterality: Left; forearm SKIN BIOPSY SKIN CANCER EXCISION Left 10/10/2012 Procedure: EXCISION - SKIN CANCER; Surgeon: Sy Fierro MD; Location: [facility] MAIN OR; Service: Plastics; Laterality: Left; upper arm and upper back w/frozen section UPPER GASTROINTESTINAL ENDOSCOPY UPPER GASTROINTESTINAL ENDOSCOPY 03/03/2013 Procedure: ESOPHAGOGASTRODUODENOSCOPY; Surgeon: Howie Gibson MD; Location: [facility] ENDOSCOPY; rvice: Gastroenterology; 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; Prior to Admission medications Medication Sig Taking? acetaminophen (TYLENOL) 325 mg tablet Take 2 tablets by mouth every 4 hours as needed for P ain (or fever >= 38.6 C (101.5 F)). apixaban (ELIQUIS) 5 mg tablet Take 1 tablet by mouth 2 times daily. ARIPiprazole (ABILIFY) 5 mg tablet Take 1 tablet by mouth Daily. atorvaSTATin (LIPITOR) 40 mg tablet Take 1 tablet by mouth nightly. Blood Glucose Monitoring Suppl (BLOOD GLUCOSE MONITOR SYSTEM) w/Device KIT Dispense brand p er patient preference budesonide-formoterol (SYMBICORT) 160-4.5 mcg/puff inhaler Inhale 2 puffs into the lungs 2 times daily. carvedilol (COREG) 12.5 mg tablet Take 1 tablet by mouth 2 times daily (with breakfast & di nner). finasteride (PROSCAR) 5 mg tablet Take 1 tablet by mouth Daily. Glucose Blood (BLOOD GLUCOSE TEST STRIPS) STRP For blood sugar testing 4 times daily hydrALAZINE (APRESOLINE) 25 mg tablet Take 1 tablet by mouth 2 times daily. insulin aspart (NOVOLOG FLEXPEN) 100 units/mL injection pen Inject 5 Units under the skin 3 times daily (before meals). Plus sliding scale insulin detemir (LEVEMIR FLEXTOUCH) 100 units/mL injection (pen) Inject 60 Units under the skin nightly. Insulin Pen Needle (BD PEN NEEDLE KYAW U/F) 32G X 4 MM MISC For insulin administration 4 ti mes daily Lancets (ACCU-CHEK MULTICLIX) MISC 1 each by Other route 4 times daily. lisinopril (PRINIVIL, ZESTRIL) 10 mg tablet Take 2 tablets by mouth Daily. metFORMIN (GLUCOPHAGE) 500 mg tablet Take 1 tablet by mouth 2 times daily (with breakfast & dinner). NIFEdipine (ADALAT CC) 60 MG 24 hr tablet Take 1 tablet by mouth Daily. omeprazole (PRILOSEC) 20 mg capsule Take 1 capsule by mouth every morning (before breakfast ). tamsulosin (FLOMAX) 0.4 mg CAPS Take 1 capsule by mouth 2 times daily. Allergies Allergen Reactions Nitroglycerin Swelling Tongue swelling [...] Financial resource strain: Not on file Food insecurity: Worry: Not on file Inability: Not on file Transportation needs: Medical: Not on file Non-medical: Not on file Tobacco Use Smoking status: Never Smoker Smokeless tobacco: Never Used Substance and Sexual Activity Alcohol use: Yes Comment: Alcoholic Drinks/day: occassional Drug use: Never Comment: Drug use: No Sexual activity: Not on file Lifestyle Physical activity: Days per week: Not on file Minutes per session: Not on file Stress: Not on file Relationships Social connections: Talks on phone: Not on file Gets together: Not on file Attends scientologist service: Not on file Active member of club or organization: Not on file Attends meetings of clubs or organizations: Not on file Relationship status: Not on file Intimate partner violence: Fear of current or ex partner: Not on file Emotionally abused: Not on file Physically abused: Not on file Forced sexual activity: Not on file Other Topics Concern Not on file Social History Narrative Lives alone x 1 wk, moved from [facility], , 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 2 falls in the last 6 months. Family History Problem Relation Age of Onset Heart disease Father Heart disease Sister Diabetes, NIDDM Sister Other (see comment) Brother Heart Problems Review of Systems Constitutional: Negative for fever, chills Negative for fatigue Eyes: Negative for vision changes or photophobia Nose: Negative for congestion Throat: Negative for sore throat or swelling CV/Resp: Negative for chest pain Negative for [id number] Negative for cough GI: Negative for abdominal pain Negative for nausea Negative for vomiting Negative for constipation Negative for diarrhea Negative for black or bloody stools : Negative for urinary frequency Negative for pain with urination Musculoskeletal: Negative for back pain Negative for neck pain or stiffness. Skin: Negative for rash Neuro/Psych: Positive for headache Positive for weakness Positive for speech problems All other systems reviewed and negative except as noted. Physical Exam Temp: 36.7 C (98 F) Pulse: 81 SpO2: 98 % Resp: 18 BP: 131/65 Vital signs interpretation: Elevated BP, otherwise WNL O2 saturation was normal. General: Alert, in no apparent distress HEENT: Normal inspection, PERRLA, non-icteric, EOM's intact Ears normal Nose normal Pharynx normal, mucous membranes are moist. Neck: Normal inspection Supple, no lymphadenopathy Non-tender to palpation. Cardiovascular: Normal rate, rhythm normal No murmurs, clicks or rubs Heart sounds are easily auscultated Chest non-tender to palpation Respiratory: Normal work of breathing Breath sounds equal bilaterally No rales, wheezing or rhonchi Abdomen: Soft, non-tender, non-distended Normal bowel sounds No guarding or rebound No masses. No pulsatile masses. Back: Normal inspection, no CVA tenderness or spinal tenderness Skin: Color normal Warm and dry No rash Extremities: No swelling or pitting edema. No calf tenderness or palpable cords. Neuro: Alert and Oriented x 3 Speech is stuttering No aphasia or dysarthria No facial droop PERRLA, EOMI, no nystagmus CN II-XII intact Motor strength 5/5 upper and lower extremities No pronator drift No lower extremity drift No sensory deficits Intact finger to nose and heel to carmichael Normal gait Seems to be developmentally delayed with speech and behaviors Medical Decision Making and Emergency Department Course ED Department Course Patient presents to ED with complaints of headache. My DDx also includes, but is not limit ed to: migraine, intracranial hemorrhage, tension headache, vs other. Will treat as shown be low and reevaluate the patient. Patient's condition is stable at this time. Medications acetaminophen (OFIRMEV) IVPB 1,000 mg (0 mg Intravenous Stopped 01/25/19 0935) sodium chloride 0.9% (NS) bolus 1,000 mL (0 mLs Intravenous Stopped 01/25/1916) ketorolac (TORADOL) injection 15 mg (15 mg Intravenous Given 01/25/1915) insulin regular (humuLIN R, novoLIN R) injection 5 Units (5 Units Intravenous Given 9 0917) 8:[address] head impression: No acute intracranial process. Glucose elevated 391. Otherwise, labs are normal. 8:40 AM Patient reevaluation. Discussed results with the patient. At this time, the patient 's headache has not resolved. He rates the pain a 7/10. Will give Toradol and d/c home. Zaira ent is stable at this time. I discussed all ED results and my clinical impression with the p attio. We discussed the emergent signs and symptoms that would necessitate a return to ED. The patient voices understanding and agrees with the plan. All questions and concerns addr essed to the best of my ability. The patient agrees to return to the ED immediately if any problems or concerns. Records Reviewed Nursing notes were reviewed for chief complaint, medications, clinical presentation and vit al signs. Old ED records were reviewed as available (Using the electronic record system of [facility], with regard to the past medical/surgical history, previous medications, and all ergies). Laboratory Evaluation Results Procedure Component Value Ref Range Date/Time Protime INR [[id number]] Collected: 01/25/19740 Order Status: Completed Specimen: Blood Updated: 01/25/19811 INR 1.0 PTT [[id number]] Collected: 01/25/19740 Order Status: Completed Specimen: Blood Updated: 01/25/19811 PTT 27 23 - 32 seconds Comprehensive Metabolic Panel [[id number]] (Abnormal) Collected: 01/25/19740 Order Status: Completed Specimen: Blood Updated: 01/25/19806 Na 138 135 - 145 mmol/L K 4.4 3.5 - 4.9 mmol/L Cl 106 99 - 109 mmol/L CO2 24 23 - 32 mmol/L Anion Gap 12 5 - 20 mmol/L Glucose 391 65 - 99 mg/dL BUN 18 8 - 25 mg/dL Creatinine 0.99 0.70 - 1.30 mg/dL BUN/Creatinine Ratio 18 Calcium 9.4 8.5 - 10.5 mg/dL Protein, Total 6.7 6.3 - 8.2 g/dL Albumin 4.0 3.3 - 4.8 g/dL Globulin 2.7 1.3 - 4.9 g/dL A/G Ratio 1.5 1.0 - 2.4 BILIRUBIN, TOTAL 0.5 0.1 - 1.5 mg/dL ALK PHOS 125 35 - 115 U/L AST 22 10 - 45 U/L ALT 18 10 - 65 U/L Estimated GFR >60 >60 mL/min/1.73m2 CBC with Differential [[id number]] (Abnormal) Collected: 01/25/19 0741 Order Status: Completed Specimen: Blood Updated: 01/25/19 075 WBC 9.45 3.80 - 11.00 K/uL RBC 5.17 4.20 - 5.70 M/uL Hemoglobin 14.7 13.2 - 17.0 g/dL Hematocrit 42.8 39.0 - 50.0 % MCV 82.8 80.0 - 100.0 fl MCH 28.3 27.0 - 34.0 pg MCHC 34.2 32.0 - 35.5 g/dL RDW-SD 41.6 37 - 53 fl Platelet Count 254 150 - 400 K/uL MPV 7.6 fl Diff Type AUTOMATED % Neutrophils 59.28 % % Lymphocytes 24.49 % Monocyte % 10.20 % Eosinophils % 5.13 % Basophils % 0.90 % Neutrophils, Absolute 5.60 1.90 - 7.40 K/uL Absolute Lymphocytes 2.31 1.00 - 3.90 K/uL Absolute Monocytes 0.96 0.00 - 0.80 K/uL Eosinophils, Absolute 0.48 0.00 - 0.50 K/uL Basophils, Absolute 0.09 0.00 - 0.10 K/uL I personally reviewed the lab results and they have been posted to the chart. Pertinent po sitive and negative findings have been addressed appropriately. EKG and Radiology Evaluation Imaging Results CT Head wo Contrast (Final result) Result time 01/25/19 08:16:58 Final result by Kishan Ji MD (01/25/19 08:16:58) Impression: No acute intracranial process. Signed by: Irina Ji, Kishan Sign Date/Time: 01/25/2019 8:16 AM Narrative: CT HEAD WITHOUT CONTRAST CLINICAL INFORMATION: Headache, intracranial hemorrhage suspected. dizziness, hypertension COMPARISON: MRI ANGIOGRAM HEAD WO CONTRAST (01/04/2019); MRI BRAIN WO CONTRAST (01/04/2019); CT HEAD CERVICAL SPINE WO CONTRAST (01/03/2019); PROCEDURE: Axial images were obtained through the head without IV contrast. Multiplanar reformations were obtained from the acquisition data. At least one of the following CT dose optimization techniques were used: Automated exposure control; Adjustment of mA and/or kV according to patient size; Use of iterative reconstruction technique. FINDINGS: Brain: There is mild diffuse global parenchymal volume loss. No midline shift is noted. No uncal or tonsillar herniation is present. The brain maintains normal garnica-white differentiation. No intra-axial mass. Ventricles and extra-axial fluid spaces: There is moderate calcification of the bilateral intracranial internal carotid arteries. The ventricular system is normal in size. There is severe calcification of the intracranial vertebral arteries. Paranasal sinuses and mastoid air cells: There is severe mucosal thickening of the right frontal sinus. Moderate mucosal thickening is seen of the bilateral ethmoid sinuses. There is moderate mucosal thickening of the right maxillary sinus. There is debris along the external auditory canal bilaterally, left greater than right. Calvarium and extracranial soft tissues: Normal. Orbits: Imaged portions of the orbits are normal. Diagnosis: 1. Acute intractable headache, unspecified headache type Disposition: ED Disposition ED Disposition Condition Comment Discharge Good After meds Follow-up Information Schedule an appointment as soon as possible for a visit with Mireya Pack NP. Specialty: Nurse Practitioner - Primary Care Contact information: [address] [address] [facility]. Specialty: Emergency Medicine Why: As needed, If symptoms worsen Contact information: [address] [facility] [id number] Discharge Medication List as of 01/25/2019 9:35 AM Attending Provider Note: I, Breanne Hurtado DO personally performed the services described in this documentation, as scribed by Evette Merchant in my presence, and it is both accurate and c omplete. Chart Reviewed and Completed. Scribe: Kari Harris, scribing for and in the presence of Breanne Hurtado DO. Completed by: Kari Casillas 01/25/2019 1:58 PM This chart has in part been created using [employer] Speech Recognition software. The lucy abbott has been reviewed and there may still exist sound alike word errors. Breanne Hurtado DO Procedures Breanne Hurtado DO 01/25/19 [address] Jane, RN - 01/25/2019 7:07 AM PSTPatient complaining that he hasn't been seen by the doctor yet. Justino prabhakar acknowledged and told that MD is seeing another patient and would be in when she was a vailable. Patient stated that this was unacceptable. documented in this encounter Plan of Treatment +--------+---------+ + + + | Date | Type | Specialty | Care Team | Description | +--------+---------+ + + + | 09/10/ | Office | Geriatric Medicine | Mireya Pack, | | | 2019 | Visit | | [employer] [address] | | | | | | [address] [place], | | | | | | [place] [address] | | | | | | [phone] | | | | | | | | +--------+---------+ + + + | 09/29/ | Office | Urology | Mireya Pack, | | | 2020 | Visit | | [employer] [address] | | | | | | [address] [place], | | | | | | [place] [address] | | | | | | [phone] | | | | | | | | | | | | Toy Wild W, DO | | | | | | [address] | | | | | | [place] [address] | | | | | | [phone] | | | | | | | | +--------+---------+ + + + + +------+--------+ + + | Name | Type | Priori | Associated Diagnoses | Date/Time | | | | ty | | | + +------+--------+ + + | ED INFORMATION | COLTON | Routin | | 01/25/2019 6:53 AM | | EXCHANGE | | e | | PST | + +------+--------+ + + documented as of this encounter Procedures + +--------+ + + + | Procedure Name | Priori | Date/Time | Associated Diagnosis | Comments | | | ty | | | | + +--------+ + + + | CT HEAD WO CONTRAST | ESCOBAR | 01/25/2019 | | Results for this | | | | 8:01 AM | | procedure are in the | | | | PST | | results section. | + +--------+ + + + | PTT | STAT | 01/25/2019 | | Results for this | | | | 7:41 AM | | procedure are in the | | | | PST | | results section. | + +--------+ + + + | PROTIME INR | STAT | 01/25/2019 | | Results for this | | | | 7:41 AM | | procedure are in the | | | | PST | | results section. | + +--------+ + + + | CBC WITH | STAT | 01/25/2019 | | Results for this | | DIFFERENTIAL | | 7:41 AM | | procedure are in the | | | | PST | | results section. | + +--------+ + + + | COMPREHENSIVE | STAT | 01/25/2019 | | Results for this | | METABOLIC PANEL | | 7:41 AM | | procedure are in the | | | | PST | | results section. | + +--------+ + + + | ED INFORMATION | Routin | 01/25/2019 | | | | EXCHANGE | e | 6:53 AM | | | | | | PST | | | + +--------+ + + + +---+--------+ | | | | | Proced | | | ure | | | Note - | | | Richard, | | | Lab In | | | | | | Hlseve | | | n - | | | 12/20/ | | | 2019 | | | 6:54 | | | AM PST | | | | | | Format [...] | | | FICATI | | | ON?12[birth year] | | | [birth year]/201 | | | 9 | | | 06:53? | | | GR, | | | NORAH | | | | | | M?MRN: | | | | | | [id number] | | | [id number] | | | riteri | | | a Met | | | | | | Medica | | | id 5 | | | in 12 | | | 10 in | | | 12 | | | Care | | | [...] | | | d: | | | /18/ | | | 19 | | | [...] MED | | | | | | 2019-0 | | | 9-10 | | | LORAZE | | | ANKUR | | | 0.5 MG | | | | | | TABLET | | | 27 | | | NORAH | | | EVANGE | | | LISTA | | | 4 0 Rx | | | | | | Summar | | | yMetri | | | c | | | Count | | | CS | | | II-V | | | Rx 1 | | | CS-II | | | Rx 0 | | | Quanti | | | ty | | | Dispen | | | sed 27 | | | | | | Unique | | | | | | Prescr | | | ibers | | | 1 | | | Unique | | | | | | Pharma | | | cies 1 | | | | | | Benzos | | | 1 | | | Opioid | | | s 0 | | | Long | | | [...] | | Hospit | | | al 2 0 | | | | | | [facility] | | | | | | [facility] | | | al | | | Medica | | | l | | | Center | | | 14 0 | | | [place] | | | s | | | Medica | | | l | | | Center | | | 10 0 | | | [facility] | | | sd | | | Commun | | | ity | | | Hospit | | | al 2 0 | | | | | | [facility] | | | | | | [facility] | | | anding | | | ED 1 | | | 0 | | | Total | | | 29 0 | | | Note: | | [...] | | out | | | of 29 | | | in the | | [...] | | | int | | | Dec | | | 20, | | | 2019 | | | [facility] | | | | | | [facility] | | | al | | | [facility] | | | [place] | | | [place] | | | Emerge | | | ncy | | | Dec 5, | | | 2019 | | | [facility] | | | | | | [facility] | | | al | | | [facility] | | | [place] | | | [place] | | | Emerge | | | ncy | | | | | | Diarrh | | | ea | | | (Adult | | | ) | | | Headac | | | he | | | (Adult | | | - | | | Recurr | | | ent Or | | | Known | | | Dx | | | Migrai | | | walter) | | | | | | Dizzin | | | ess | | | | | | Hyperg | | | lycemi | | | a, | | | unspec | | | ified | | | | | | Dizzin | | | ess | | | and | | | giddin | | | ess | | | Dec 4, | | | 2019 | | | [facility] | | | sd | | | Commun | | | [facility]y [facility] | | | | | | [place] | | | [place] | | | Emerge | | | ncy | | | Chief | | | Compla | | | int: | | | dizzin | | | ess | | | Nov | | | 28, | | | 2019 | | | [facility] | | | | | | [facility] | | | al | | | [facility] | | | [place] | | | [place] | | | Emerge | | | ncy | | | | | | Dizzin | | | ess | | | | | | Dizzin | | | ess | | | and | | | giddin | | | ess | | | | | | Hyperg | | | lycemi | | | a, | | | unspec | | | ified | | | | | | Unspec | | | ified | | | injury | | | of | | | head, | | | initia | | | l | | | encoun | | | ter | | | | | | Unspec | | | ified | | | fall, | | | initia | | | l | | | encoun | | | ter | | | Nov 7, | | | 2019 | | | [facility] | | | | | | [facility] | | | al | | | [facility] | | | [place] | | | [place] | | | Emerge | | | ncy | | | Chest | | | Pain | | | | | | Palpit | | | ations | | | Nov | | | 6, | | | 2019 | | | [facility] | | | | | | [facility] | | | al | | | [facility] | | | [place] | | | [place] | | | Emerge | | | ncy | | | chest | | | pain, | | | | | | syncop | | | e | | | Syncop | | | e | | | Chest | | | Pain | | | | | | Unstab | | | le | | | angina | | | | | | Other | | | specif | | | ied | | | abnorm | | | al | | | findin | | | gs of | | | blood | | | chemis | | | try | | | | | | Essent | | | ial | | | (prima | | | ry) | | | hypert | | | ension | | | | | | Hypert | | | ensive | | | | | | urgenc | | | y Oct | | | 26, | | | 2019 | | | [facility] | | | | | | [facility] | | | al | | | [facility] | | | [place] | | | [place] | | | Emerge | | | ncy | | | | | | Multip | | | le | | | Falls | | | | | | Palpit | | | ations | | | | | | Essent | | | ial | | | (prima | | | ry) | | | hypert | | | ension | | | | | | Syncop | | | e and | | | collap | | | se | | | Oct | | | 10, | | | 2019 | | | [facility] | | | | | | [facility] | | | al | | | [facility] | | | [place] | | | [place] | | | Emerge | | | ncy | | | | | | Consti | | | pation | | | | | | Hypert | | | ension | | | | | | (Asymp | | | tomati | | | c) | | | Elevat | | | ed | | | Blood | | | Sugar | | | (Asymp | | | tomati | | | c) | | | Hyperg | | | lycemi | | | a, | | | unspec | | | ified | | | | | | Slow | | | transi | | | t | | | consti | | | pation | | | | | | Elevat | | | ed | | | blood- | | | pressu | | | re | | | readin | | | g, w/o | | | | | | diagno | | | sis of | | | htn | | | Sep 5, | | | 2019 | | | [facility] | | | | | | [facility] | | | al | | | [facility] | | | [place] | | | [place] | | | Emerge | | | ncy | | | | | | Evalua | | | tion | | | Of | | | Abnorm | | | al Ekg | | | | | | Essent | | | ial | | | (prima | | | ry) | | | hypert | | | ension | | | | | | Syncop | | | e and | | | collap | | | se | | | Chest | | | pain, | | | unspec | | | ified | | | Sep | | | 4, | | | 2019 | | | [facility] | | | | | | [facility] | | | al | | | [facility] | | | [place] | | | [place] | | | Emerge | | | ncy | | | | | | Elevat | | | ed | | | Blood | | | Sugar | | | (Asymp | | | tomati | | | c) | | | Chest | | | Pain | | | | | | Tachyc | | | ardia | | | | | | High | | | Blood | | | Sugar | | | (Sympt | | | omatic | | | ) 1 | | | Type | | | [...] | | | n | | | Anesth | | | esia | | | of | | | skin | | | | | | Parest | | | hesia | | | of | | | skin | | | | | | Essent | | | ial | | | (prima | | | ry) | | | hypert | | | ension | | | | | | Chest | | | pain, | | | unspec | | | ified | | | | | | Recent [...] | | | int | | | Sep 5, | | | 2019 | | | [facility] | | | | | | [facility] | | | al | | | [facility] | | | [place] | | | [place] | | | Administrative Specialist | | | al | | | [...] | | insuli | | | n 1 | | | Type | | | [...] | | | to | | | unsp | | | drug/m | | | eds/bi | | | ol | | | subst | | | status | | | | | | Chest [...] | | | ension | | | 1 | | | Type 2 | | | | | | diabet | | | es | | | mellit | | | us | | | with | | | hyperg | | | lycemi | | | a Anthony | | | 4, | | | 2019 | | | [facility] | | | [facility] | | | [place] | | | [place] | | | Intens | | | aissatou | | | Care | | | Chief | | | Compla | | | int: | | | CHEST | | | PAIN | | | Care | | | [...] | | | /notif | | | [id number] | | | [id number] | | | [id number] | | | [id number] | | | [id number] | | | [id number] | | | c4 | | | PLEASE | | | [...] | | | ed.? | | | 2019 | | | [facility] | | | tive | | | Medica | | | l | | | Techno | | | logies | | | , [employer] | | | - | | | [email or web address] | | | llecti | | | vemedi | | | [email or web address] | | | m | +---+--------+ documented in this encounter Results CT Head wo Contrast (01/25/2019 8:01 AM PST) + + | Specimen | + + | | + + + + + | Impressions | Performed At | + + + | No acute intracranial process. Signed by: Irina Ji, | [facility] | | Kishan Sign Date/Time: 01/25/2019 8:16 AM | | + + + + + + | Narrative | Performed At | + + + | CT HEAD WITHOUT CONTRAST CLINICAL INFORMATION: Headache, | [facility] | | intracranial hemorrhage suspected. dizziness, hypertension | | | COMPARISON: MRI ANGIOGRAM HEAD WO CONTRAST (01/04/2019); MRI BRAIN WO | | | CONTRAST (01/04/2019); CT HEAD CERVICAL SPINE WO CONTRAST | | | (01/03/2019); PROCEDURE: Axial images were obtained through the | | | head without IV contrast. Multiplanar reformations were obtained from | | | the acquisition data. At least one of the following CT dose | | | optimization techniques were used: Automated exposure control; | | | Adjustment of mA and/or kV according to patient size; Use of | | | iterative reconstruction technique. FINDINGS: Brain: There is | | | mild diffuse global parenchymal volume loss. No midline shift is | | | noted. No uncal or tonsillar herniation is present. The brain | | | maintains normal garnica-white differentiation. No intra-axial mass. | | | Ventricles and extra-axial fluid spaces: There is moderate | | | calcification of the bilateral intracranial internal carotid arteries. | | | The ventricular system is normal in size. There is severe | | | calcification of the intracranial vertebral arteries. Paranasal | | | sinuses and mastoid air cells: There is severe mucosal thickening of | | | the right frontal sinus. Moderate mucosal thickening is seen of the | | | bilateral ethmoid sinuses. There is moderate mucosal thickening of | | | the right maxillary sinus. There is debris along the external | | | auditory canal bilaterally, left greater than right. Calvarium and | | | extracranial soft tissues: Normal. Orbits: Imaged portions of the | | | orbits are normal. | | + + + + + | Procedure Note | + + | Richard, Rad Results In - 01/25/2019 8:20 AM PST | | CT HEAD WITHOUT CONTRAST | | | | CLINICAL INFORMATION: | | Headache, intracranial hemorrhage suspected. dizziness, hypertension | | | | COMPARISON: | | MRI ANGIOGRAM HEAD WO CONTRAST (01/04/2019); MRI BRAIN WO CONTRAST | | (01/04/2019); CT HEAD CERVICAL SPINE WO CONTRAST (01/03/2019); | | | | PROCEDURE: | | Axial images were obtained through the head without IV contrast. | | Multiplanar reformations were obtained from the acquisition data. | | | | At least one of the following CT dose optimization techniques were | | used: Automated exposure control; Adjustment of mA and/or kV according | | to patient size; Use of iterative reconstruction technique. | | | | FINDINGS: | | Brain: There is mild diffuse global parenchymal volume loss. No | | midline shift is noted. No uncal or tonsillar herniation is present. | | The brain maintains normal garnica-white differentiation. No intra-axial | | mass. | | | | Ventricles and extra-axial fluid spaces: There is moderate | | calcification of the bilateral intracranial internal carotid arteries. | | The ventricular system is normal in size. There is severe | | calcification of the intracranial vertebral arteries. | | | | Paranasal sinuses and mastoid air cells: There is severe mucosal | | thickening of the right frontal sinus. Moderate mucosal thickening is | | seen of the bilateral ethmoid sinuses. There is moderate mucosal | | thickening of the right maxillary sinus. There is debris along the | | external auditory canal bilaterally, left greater than right. | | | | Calvarium and extracranial soft tissues: Normal. | | | | Orbits: Imaged portions of the orbits are normal. | | | | IMPRESSION: | | No acute intracranial process. | | | | | | | | Signed by: Irina Ji Richard | | Sign Date/Time: 01/25/2019 8:16 AM | + + + +---------+ + + | Performing | Address | City/State/Zipcode | Phone Number | | Organization | | | | + +---------+ + + | [facility] | | | | + +---------+ + + CBC with Differential (01/25/2019 7:41 AM PST) + + + + + + | Component | Value | Ref Range | Performed | Pathologist | | | | | At | Signature | + + + + + + | WBC | 9.45 | 3.80 - 11.00 | [facility] | | | | | K/uL | LABORATORY | | + + + + + + | Red Blood | 5.17 | 4.20 - 5.70 | [facility] | | | Cells | | M/uL | LABORATORY | | + + + + + + | Hemoglobin | 14.7 | 13.2 - 17.0 | [facility] | | | | | g/dL | LABORATORY | | + + + + + + | Hematocrit | 42.8 | 39.0 - 50.0 % | [facility] | | | | | | LABORATORY | | + + + + + + | MCV | 82.8 | 80.0 - 100.0 fl | [facility] | | | | | | LABORATORY | | + + + + + + | MCH | 28.3 | 27.0 - 34.0 pg | [facility] | | | | | | LABORATORY | | + + + + + + | MCHC | 34.2 | 32.0 - 35.5 | [facility] | | | | | g/dL | LABORATORY | | + + + + + + | RDW-SD | 41.6 | 37 - 53 fl | [facility] | | | | | | LABORATORY | | + + + + + + | Platelet | 254 | 150 - 400 K/uL | [facility] | | | Count | | | LABORATORY | | + + + + + + | MPV | 7.6 | fl | [facility] | | | | | | LABORATORY | | + + + + + + | Diff Type | AUTOMATED | | [facility] | | | | | | LABORATORY | | + + + + + + | % | 59.28 | % | [facility] | | | Neutrophils | | | LABORATORY | | + + + + + + | % | 24.49 | % | [facility] | | | Lymphocytes | | | LABORATORY | | + + + + + + | Monocyte % | 10.20 | % | [facility] | | | | | | LABORATORY | | + + + + + + | Eosinophils | 5.13 | % | [facility] | | | % | | | LABORATORY | | + + + + + + | Basophils % | 0.90 | % | [facility] | | | | | | LABORATORY | | + + + + + + | Neutrophils | 5.60 | 1.90 - 7.40 | [facility] | | | , Absolute | | K/uL | LABORATORY | | + + + + + + | Absolute | 2.31 | 1.00 - 3.90 | [facility] | | | Lymphocytes | | K/uL | LABORATORY | | + + + + + + | Absolute | 0.96 (H) | 0.00 - 0.80 | [facility] | | | Monocytes | | K/uL | LABORATORY | | + + + + + + | Eosinophils | 0.48 | 0.00 - 0.50 | [facility] | | | , Absolute | | K/uL | LABORATORY | | + + + + + + | Basophils, | 0.09Comment: Testing | 0.00 - 0.10 | [facility] | | | Absolute | performed at [facility];[address] | [address] | LABORATORY | | | [address];[place], [place] | | | | | | [address] | | | | + + + + + + + + | Specimen | + + | Blood | + + + + + + + | Performing | Address | City/State/Zipcode | Phone Number | | Organization | | | | + + + + + | [facility] | [address] | [place] [address] | [phone] | + + + + + Comprehensive Metabolic Panel (01/25/2019 7:41 AM PST) + + + + + + | Component | Value | Ref Range | Performed | Pathologist | | | | | At | Signature | + + + + + + | Na | 138 | 135 - 145 | [facility] | | | | | mmol/L | LABORATORY | | + + + + + + | K | 4.4 | 3.5 - 4.9 | [facility] | | | | | mmol/L | LABORATORY | | + + + + + + | Cl | 106 | 99 - 109 mmol/L | [facility] | | | | | | LABORATORY | | + + + + + + | CO2 | 24 | 23 - 32 mmol/L | [facility] | | | | | | LABORATORY | | + + + + + + | Anion Gap | 12 | 5 - 20 mmol/L | [facility] | | | | | | LABORATORY | | + + + + + + | Glucose | 391 (H) | 65 - 99 mg/dL | [facility] | | | | | | LABORATORY | | + + + + + + | BUN | 18 | 8 - 25 mg/dL | [facility] | | | | | | LABORATORY | | + + + + + + | Creatinine | 0.99 | 0.70 - 1.30 | [facility] | | | | | mg/dL | LABORATORY | | + + + + + + | BUN/Creatin | 18 | | [facility] | | | ine Ratio | | | LABORATORY | | + + + + + + | Calcium | 9.4 | 8.5 - 10.5 | [facility] | | | | | mg/dL | LABORATORY | | + + + + + + | Protein, | 6.7 | 6.3 - 8.2 g/dL | [facility] | | | Total | | | LABORATORY | | + + + + + + | Albumin | 4.0 | 3.3 - 4.8 g/dL | [facility] | | | | | | LABORATORY | | + + + + + + | Globulin | 2.7 | 1.3 - 4.9 g/dL | [facility] | | | | | | LABORATORY | | + + + + + + | A/G Ratio | 1.5 | 1.0 - 2.4 | [facility] | | | | | | LABORATORY | | + + + + + + | BILIRUBIN, | 0.5 | 0.1 - 1.5 mg/dL | [facility] | | | TOTAL | | | LABORATORY | | + + + + + + | ALK PHOS | 125 (H) | 35 - 115 U/L | [facility] | | | | | | LABORATORY | | + + + + + + | AST | 22 | 10 - 45 U/L | [facility] | | | | | | LABORATORY | | + + + + + + | ALT | 18 | 10 - 65 U/L | [facility] | | | | | | LABORATORY | | + + + + + + | Estimated | >60Comment: GFR <60: | >60 | [facility] | | | GFR | CHRONIC KIDNEY [...] | | | | | performed at [facility] | | | | | | [facility];[place], [place] | | | | | | [address] | | | | + + + + + + + + | Specimen | + + | Blood | + + + + + + + | Performing | Address | City/State/Zipcode | Phone Number | | Organization | | | | + + + + + | [facility] | [address] | [place] [address] | [phone] | + + + + + PTT (01/25/2019 7:41 AM PST) + + + + + + | Component | Value | Ref Range | Performed | Pathologist | | | | | At | Signature | + + + + + + | PTT | 27Comment: Testing | 23 - 32 seconds | [facility] | | | | performed at [facility];[address] | | LABORATORY | | | | [address];[place] | | | | | | [address] | | | | + + + + + + + + | Specimen | + + | Blood | + + + + + + + | Performing | Address | City/State/Zipcode | Phone Number | | Organization | | | | + + + + + | [facility] | [address] | [place] [address] | [phone] | + + + + + Protime INR (01/25/2019 7:41 AM PST) + + + + + + | Component | Value | Ref Range | Performed | Pathologist | | | | | At | Signature | + + + + + + | INR | 1.0Comment: REFERENCE | | [facility] | | | | RANGE:0.9 - 1.2 [...] | | | | | performed at [facility];[address] | | | | | | [facility];[place], [place] | | | | | | [address] | | | | + + + + + + + + | Specimen | + + | Blood | + + + + + + + | Performing | Address | City/State/Zipcode | Phone Number | | Organization | | | | + + + + + | [facility] | [address] | [place] [address] | [phone] | + + + + + documented in this encounter Visit Diagnoses + + | Diagnosis | + + | Acute intractable headache, unspecified headache type - Primary | + + documented in this encounter Administered Medications + +---------+ + +-------+------+ | Medication Order | MAR | Action | Dose | Rate | Site | | | Action | Date | | | | + +---------+ + +-------+------+ | acetaminophen (OFIRMEV) IVPB | New Bag | 01/26/20 | 1,000 mg | 400 | | | 1,000 mg 1,000 mg, Intravenous, | | 19 9:20 | | mL/hr | | | Administer over 15 Minutes, ONCE, | | AM PST | | | | | 01/25/19 at 0725, For 1 | | | | | | | dose, Maximum allowed order | | | | | | | duration of 24 hours per System | | | | | | | P&T, For PDA Closure? No, Is | | | | | | | patient is NPO or without | | | | | | | functional GI tract? YES, Patient | | | | | | | has contraindication to | | | | | | | ketorolac due to: renal failure | | | | | | | OR CrCl < 30 mL/min, Rectal APAP | | | | | | | not an option or ineffective? YES | | | | | | + +---------+ + +-------+------+ +---+---+ | | | +---+---+ + +-------+ +---------+---+---+ | insulin regular (humuLIN R, | Given | 01/26/20 | 5 Units | | | | novoLIN R) injection 5 Units 5 | | 19 9:17 | | | | | Units, Intravenous, ONCE, Fri | | AM PST | | | | | 01/25/19 at 0845, For 1 dose, | | | | | | | Only for use with U-100 insulin | | | | | | | syringe., | | | | | | + +-------+ +---------+---+---+ +---+---+ | | | +---+---+ + +-------+ +-------+---+---+ | ketorolac (TORADOL) injection | Given | 01/26/20 | 15 mg | | | | 15 mg 15 mg, Intravenous, ONCE, | | 19 9:15 | | | | | 01/25/19 at 0845, For 1 dose | | AM PST | | | | + +-------+ +-------+---+---+ +---+---+ | | | +---+---+ + +---------+ +--------+-------+---+ | sodium chloride 0.9% (NS) bolus | New Bag | 01/26/20 | 1,000 | 1000 | | | 1,000 mL 1,000 mL, Intravenous, | | 19 7:42 | mLs | mL/hr | | | Administer over 1 Hours, ONCE, | | AM PST | | | | | 01/25/19 at 0725, For 1 dose | | | | | | + +---------+ +--------+-------+---+ +---+---+ | | | +---+---+ documented in this encounter"
--- OUTSIDE RECORDS SUMMARY | ~2019-09-09 | XMS | Encounter Summary ---
Demographics + + + | Address | [address] | | | [place] [address] | + + + | Home Phone | | + + + | Preferred Language | Unknown | + + + | Marital Status | | + + + | Advent Affiliation | 1027 | + + + | Race | Unknown | + + + | Ethnic Group | Unknown | + + + Author + + + | Author | [facility] | | | and [place] | + + + | Organization | [facility] | | | and [place] | + + + | Address | Unknown | + + + | Phone | Unavailable | + + + Support + + + + + | Name | Relationship | Address | Phone | + + + + + | Sammi Kohler | ECON | [place] [address] | | + + + + + Care Team Providers + +------+ + | Care [employer] Name | Role | Phone | + +------+ + PCP | Unavailable | + +------+ + Encounter Details +--------+ + + + + | Date | Type | Department | Care Team | Description | +--------+ + + + + | 06/04/ | Emergency | [facility] | Zach Garnica DO | Abdominal pain; | | 2014 | | [facility] | [address] | Non-cardiac chest | | | | EMERGENCY CENTER | [place], [place] | pain | | | | [address] | [address] | | | | | [place], [place] | [phone] | | | | | [address] | | | | | | [phone] | | | +--------+ + + + [...] documented as of this encounter ED Notes Conversion Transaction, Provider Unknown - 06/04/2013 5:16 AM PDTFormatting of this note m ight be different from the original. ED Notes by Vadim Bernal RN at 06/04/13515 Author: Vadim Bernal RN Service: (none) Author Type: Registered Nurse Filed: 06/04/13516 Date of Service: 06/04/13515 Status: Signed Mortar Man: Vadim Bernal RN (Registered Nurse) Dr Garnica at bedside to update patient on plan of care. Vadim Bernal RN 06/04/13516 onver ivana Transaction, Provider Unknown - 06/04/2013 4:17 AM PDT ED Notes by Diane Fischer RN at 06/04/13416 Author: Diane Fischer RN Service: (none) Author Type: Registered Nurse Filed: 06/04/13416 Date of Service: 06/04/13416 Status: Signed Mortar Man: Diane Fischer RN (Registered Nurse) Patient is resting comfortably. Diane Fischer RN 06/04/13416 onver ivana Transaction, Provider Unknown - 06/04/2013 3:12 AM PDT ED Notes by Diane Fischer RN at 06/04/13311 Author: Diane Fischer RN Service: (none) Author Type: Registered Nurse Filed: 06/04/13311 Date of Service: 06/04/13311 Status: Signed Mortar Man: Diane Fischer RN (Registered Nurse) at bedside.- Danika Fischer RN 06/04/13311 Zach Amezquita DO - 06/04/2013 3:10 AM PDTFormatting of this note might be different from the or iginal. ED Provider Notes by Zach Garnica DO at 06/04/13309 Author: Zach Garnica DO Service: (none) Author Type: Physician Filed: 06/05/13 5151 Date of Service: 06/04/13309 Status: Signed Mortar Man: Zach Garnica DO (Physician) [facility] Department of Emergency Medicine 06/04/2013 History of Present Illness Patient Identification Norah Gr is a 57 y.o. male. Patient information was obtained from patient and EMS personnel. History/Exam limitations: none. Patient presented to the Emergency Department by: [facility] 1723 Chief Complaint Chief Complaint Patient presents with Abdominal Pain "gas pain" per patient Chest Pain Pt presents to the ED with CP. Onset of symptoms was tonight, with a constant course since that time. Severity is described as moderate. The patient also complains of abd pain and esau sea. The patient denies any vomiting, and fever. There was no care prior to arrival. PCP: JERRELL GUTIÉRREZ Past Medical History Diagnosis Date Diabetes mellitus [...] CHOLECYSTECTOMY; Surgeon: Jevon Vargas DO; Location: [facility] MAIN OR; Service: General; 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; Abdominal surgery Cholecystectomy Skin cancer excision 10/10/2012 Procedure: EXCISION - SKIN CANCER; Surgeon: Sy Fierro MD; Location: [facility] MAIN OR ; Service: Plastics; Laterality: Left; upper arm and upper back w/frozen section Esophagogastroduodenoscopy 03/03/2013 Procedure: ESOPHAGOGASTRODUODENOSCOPY; Surgeon: Howie Gibson MD; Location: [facility] ENDOSCOPY; S ervice: Gastroenterology; 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; Colonoscopy 03/04/2013 Procedure: COLONOSCOPY; Surgeon: Howie Gibson MD; Location: [facility] ENDOSCOPY; Service: Gastroe nterology; 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; Prior to Admission medications Medication Sig Start Date End Date Taking? Authorizing Provider Albuterol Sulfate (VENTOLIN HFA IN) Inhale 2 puffs into the lungs as needed. Historical Provider ARIPiprazole (ABILIFY) 10 MG tablet Take 15 mg by mouth nightly. Historical Provider aspirin 81 MG chewable tablet Take 1 tablet by mouth daily with breakfast. 05/27/13 05/27/14 Augustine Agosto MD calcium carbonate (TUMS) 500 MG chewable tablet Take 500-1,000 mg by mouth daily as needed. For GERD Historical Provider cloNIDine (CATAPRES) 0.2 MG tablet Take 1 tablet by mouth 3 (three) times daily. 03/05/13 Scott Martínez MD diltiazem (CARDIZEM CD) 180 MG 24 hr capsule Take 1 capsule by mouth daily. 05/19/13 05/19/14 Zach Tena MD docusate sodium (COLACE) 100 MG capsule Take 100 mg by mouth nightly. Historical Provide r fenofibrate (TRIGLIDE) 160 MG tablet Take 160 mg by mouth daily. Historical Provider fluticasone-salmeterol (ADVAIR DISKUS) 250-50 MCG/DOSE AEPB Inhale 1 puff into the lungs ev wilbert 12 (twelve) hours. 09/14/12 Augustine Agosto MD HYDROcodone-acetaminophen (NORCO) 5-325 MG per tablet Take 1 tablet by mouth every 6 (six) hours as needed. Historical Provider insulin glargine (LANTUS) 100 UNIT/ML injection Inject into the skin nightly. Per MAR: inc rease by 1 unit every night by one unit to get 150 fasting blood sugar. 25 units 03/21/13 Historical Provider linagliptin (TRADJENTA) 5 MG tablet Take [...] needed. Indica tions: Feeling Anxious Historical Provider Mometasone Furo-Formoterol Fum (DULERA) 100-5 MCG/ACT AERO Inhale 1-2 puffs into the lungs. Historical Provider nebivolol (BYSTOLIC) 10 MG tablet Take 20 mg by mouth daily. Historical Provider nitroGLYCERIN (NITROSTAT) 0.[address] 0.4 mg under the tongue every 5 (five) min utes as needed. Historical Provider NOVOLOG 100 UNIT/ML injection INJ 3U SUB-Q TID(AC) AND INJECT SUBCUTANEOUSLY PER SLIDING SC SUSAN 1-70= 2U, 71-100=3U, 101-120= 4U, 121-150=5U, 151-180=6U, 181-210= 7U, 211- 04/23/13 Ramesh Yeh MD omeprazole (PRILOSEC) 20 MG capsule Take 1 capsule by mouth 2 (two) times daily. 05/27/13 Augustine Agosto MD paroxetine (PAXIL) 40 MG tablet Take 40 mg by mouth every morning. Historical Provider polyethylene glycol (GLYCOLAX) packet Take 17 g by mouth daily. Historical Provider polyethylene glycol (GLYCOLAX) powder DISSOLVE 17GM IN LIQUID AND DRINK BY MOUTH EVERY DAY 04/23/13 Bang Yeh MD pravastatin (PRAVACHOL) 20 MG tablet Take 20 [...] tobacco: Never Used Alcohol Use: Yes Comment: once a weak. 2-3 beers , last drank this am. Drug Use: No Sexually Active: Not Currently Other Topics Concern Not on file Social History Narrative Lives in longterm, IADL, full code Family History Problem Relation Age of Onset Heart disease Father Heart disease Sister Diabetes type II Sister Review of Systems Constitutional: Negative for: fever or chills Cardiovascular: Positive for: chest pain Respiratory: Negative for: cough or shortness of breath Gastrointestinal: Positive for: nausea and abdominal pain Negative for: vomiting Genitourinary: Negative for: dysuria or flank pain Musculoskeletal: Negative for: myalgias or arthralgias Skin: Negative for: rash or lesion Neuro and psych: Negative for: fainting or dizziness All other systems were reviewed and are subjectively reported as negative. Physical Exam BP 173/86 | Pulse 60 | Temp 97.6 F (36.4 C) (Oral) | Resp 16 | Ht 1.803 m (5' 11") | Wt 105.688 kg (233 lb) | BMI 32.51 kg/m2 | SpO2 96% Vitals: Hypertensive, otherwise WNL Pulse Oximetry Interpretation: Normal General: Alert, no active distress Eyes: Normal inspection, pupils equal and round, non-icteric ENT: Nl external inspection Neck: Normal inspection Supple Full ROM Cardiovascular: Normal rate and hypertensive Respiratory: No respiratory distress or wheezing, lungs are clear Abdomen: Soft, non-tender, non-distended Back: Normal inspection, moves without difficulty Skin: Color normal Warm and dry No rash Extremities: BARNARD Neuro: No gross motor/sensory deficit Medical Decision Making and Emergency Department Course ED Department Course 3:10 AM- Pt presents to the ED with abd pain, and chest pain. MDM: After introducing myself to the pt, I have performed a careful history and physical examination. I have formulated t he differential diagnosis that needs to be addressed during this ER visit, briefly discussed this differential with the pt, and then discussed with them the plan of care. I have also a ddressed the risks and benefits of all diagnostic and treatment modalities planned for this ED visit. DDx includes ACS, PE, dissection, gastritis, peptic ulcer vs other. I will order E KG, IVF, troponin, cardiac panel, lipase, chest XR and med's. 4:55 AM- Reviewed the patients XR results. Nl heart size, no infiltrates, no effusions, nl mediastinum, arthritic changes of the L shoulder. 5:07 AM- Reviewed the patients lab results. 5:17 AM- Patient recheck. The patients blood pressure is 155/80. I reviewed the lab and XR results with the patient. He reports he has a doctors appointment tomorrow. 5:29 AM- Pt reevaluation. The patient states his pain is now a 2/10.. I have discussed my c linical impression and treatment plan with the pt. We have specifically discussed the signs and symptoms that would constitute the need for an immediate return to the ED, the importanc e of continued outpatient f/u and the importance of compliance with the d/c instructions. I have answered any questions that the pt has to the best of my ability. Based upon the pt s history, physical exam, ED course, and diagnostic studies, I feel that there is no current emergent medical condition that warrants admission, transfer, or further ED treatment at thi s time. ED Medication Administration from 06/04/2013 0257 to 06/04/2013 0545 Date/Time Order Dose Route Action Action by 06/04/2013 0543 aspirin chewable tablet 324 mg 324 mg Oral Given Diane Fischer RN 06/04/2013 0543 aluminum-magnesium hydroxide-simethicone (MAALOX) 200-200-20 MG/5ML suspe nsion 30 mL 30 mL Oral Given Diane Fischer RN Filed Vitals: 06/04/13 0305 06/04/13 0405 BP: 173/86 155/80 Pulse: 60 58 Temp: 97.6 F (36.4 C) TempSrc: Oral Resp: 16 16 Height: 1.803 m (5' 11") Weight: 105.688 kg (233 lb) SpO2: 96% 93% Records Reviewed Nursing notes Old ED records reviewed (Using the electronic record system of [facility], I car efully reviewed the records with regard to the past medical/surgical history, previous medic ations, and allergies). Reviewed the patients chest CT results on 05/26/2013 IMPRESSION: 1. No evidence of pulmonary embolism. 2. Status post cholecystectomy. Reviewed the patients Echo done on 05/27/2013 IMPRESSION: 1. Left ventricular systolic function is hyperdynamic with an estimated EF of >70%. 2. There is mild concentric left ventricular hypertrophy. 3. The left atrium is moderately dilated. 4. The right atrium is mildly enlarged. 5. There is no evidence of aortic stenosis. 6. There is no evidence of pulmonary hypertension. Reviewed the patients Stress test done on 05/27/2013 IMPRESSION: 1. Somewhat limited study as prone imaging was not done, due to patient preference. The fix ed defect within the inferior wall is probably due to diaphragmatic attenuation artifact, wi th infarct in this region thought less likely. No definitive reversible defects to suggest l eft ventricular wall ischemia. 2. Left ventricular stress ejection fraction is calculated at 55%. Laboratory Evaluation Results Procedure Component Value Ref Range Date/Time Cardiac Panel [[id number]] (Abnormal) Collected:06/04/13 0412 Order Status:Completed Updated:06/04/13517 WBC 9.3 3.8 - 11.0 K/uL RBC 4.95 4.20 - 5.70 M/uL HGB 13.3 13.2 - 17.0 g/dL HCT 40.6 39.0 - 50.0 % MCV 82.1 80.0 - 100.0 fl MCH 26.9 (L) 27.0 - 34.0 pg MCHC 32.7 32.0 - 35.5 g/dL RDW SD 44.6 37 - 53 fl PLT 271 150 - 400 K/uL MPV 7.1 fl DIFF TYPE AUTOMATED NEUTROPHILS 59.0 % LYMPHOCYTES 28.6 % MONOCYTES 8.3 % EOSINOPHILS 3.5 % BASOPHILS 0.6 % NEUTROPHILS ABS 5.5 1.9 - 7.4 K/uL LYMPHOCYTES ABS 2.7 1.0 - 3.9 K/uL MONOCYTES ABS 0.8 0 - 0.8 K/uL EOSINOPHILS ABS 0.3 0 - 0.5 K/uL BASOPHILS ABS 0.1 0 - 0.1 K/uL SODIUM 140 135 - 143 mmol/L POTASSIUM 3.8 3.5 - 4.9 mmol/L CHLORIDE 104 99 - 109 mmol/L CO2 31 23 - 32 mmol/L ANION GAP AGAP 9 5 - 20 mmol/L GLUCOSE 195 (H) 65 - 99 mg/dL BUN 18 8 - 25 mg/dL CREATININE 1.09 0.70 - 1.30 mg/dL BUN/CREAT 17 CALCIUM 8.6 8.5 - 10.2 mg/dL TOTAL PROTEIN 7.1 6.3 - 8.2 g/dL Albumin 3.3 (L) 3.6 - 5.0 g/dL GLOBULIN 3.8 1.3 - 4.9 g/dL A/G 0.9 (L) 1.0 - 2.4 TBIL 0.3 0.1 - 1.5 mg/dL ALK PHOS 97 35 - 115 U/L AST 22 10 - 45 U/L ALT 22 10 - 65 U/L EGFR >60 >60 mL/min/1.73m2 CPK 81 55 - 400 U/L INR 1.0 APTT 24 23 - 32 seconds MMB 3.3 0.5 - 3.6 ng/mL CK-MB Index 4.1 Lipase [[id number]] Collected:06/04/13411 Order Status:Completed Updated:06/04/13450 Specimen Information:Blood LIPASE 153 73 - 393 U/L POC cardiac troponin [[id number]] Collected:06/04/135 Order Status:Completed Updated:06/04/13429 POC CARDIAC TROPONIN 0.01 0.00 - 0.10 ng/mL I personally reviewed the lab results and they have been posted to the chart. Pertinent po sitive and negative findings have been addressed appropriately. Radiology and EKG Evaluation Imaging Results XR Chest AP Portable (Final result) Result time:06/04/13654 Final result by Rad Results In Richard (06/04/13 06:55:05) Impression: 1. No acute findings. Narrative: [facility]AH GR XR CHEST 1 VIEW 06/04/2013 4:17 AM HISTORY: Chest pain. TECHNIQUE: One view chest. FINDINGS: Compared with May 26, 2013. Heart size appears normal. No acute infiltrates or edema. No evidence of pneumothorax or pleural effusion. ED Interpretation Documented by Emili Flores (06/04/13 0526, [facility] Emergency Department, Emergency Medicine) Nl heart size, nl mediastinum, no infiltrates, arthritic changes of the L shoulder. Chest XR interpreted by Zach Garnica, DO EKG at : 3:01 Normal sinus rhythm at 59 Sinus bradycardia. Normal MN and RICHARD Normal QRS and [place] Small Q waves in inferior leads Normal ST/T without acute ischemic changes EKG dated 05/26/2013 unchanged in comparison to todays EKG. Interpreted by Zach Garnica DO ED Diagnoses Final diagnoses Abdominal pain Non-cardiac chest pain Disposition: ED Disposition Orders Discharge Condition at discharge: Improving condition Follow-up Information Follow up With Details Comments Contact Info [facility] Emergency Department If symptoms worsen [address] [address] Jerrell Gutiérrez, DO Keep your appointment [address] [phone] Discharge Medications: New Prescriptions No new medications Additional Documentation Procedures Attending Note: Documentation assistance provided by Emili Flores (Scribe). Information recorded by the scribe has been reviewed and validated by me. I aruna laughlin with its contents. DO Zach Vizcaino DO 06/05/132311 onversion Transactio n, Provider Unknown - 06/04/2013 3:05 AM PDT ED Notes by Diane Fischer RN at 06/04/13304 Author: Diane Fischer RN Service: (none) Author Type: Registered Nurse Filed: 06/04/13305 Date of Service: 06/04/13304 Status: Signed Mortar Man: Diane Fischer RN (Registered Nurse) Telemetry called re: cardiac monitoring. Diane Fischer RN 06/04/13305 onver ivana Transaction, Provider Unknown - 06/04/2013 2:57 AM PDT ED Notes by Diane Fischer RN at 06/04/13256 Author: Diane Fischer RN Service: (none) Author Type: Registered Nurse Filed: 06/04/13256 Date of Service: 06/04/13256 Status: Signed Mortar Man: Diane Fischer RN (Registered Nurse) Bed:03
Expected date:
Expected time:
Means of arrival:
Comments:
onver ivana Transaction, Provider Unknown - 06/04/2013 2:54 AM PDT ED Notes by Vadim Bernal RN at 06/04/13253 Author: Vadim Bernal RN Service: (none) Author Type: Registered Nurse Filed: 06/04/13254 Date of Service: 06/04/13253 Status: Signed Mortar Man: Vadim Bernal RN (Registered Nurse) Per EMS: From [facility] Patient complained to staff of gas pain and chest pressure, chronic. Given 1 nitro by staff, with relief of chest pressure. Now complains of headache. Vadim Bernal, EVE 06/04/13 0255 Genaro wilson in this encounter Plan of Treatment +--------+---------+ + + + | Date | Type | Specialty | Care Team | Description | +--------+---------+ + + + | 09/10/ | Office | Geriatric Medicine | Mireya Pack, | | | 2019 | Visit | | MANAGER ENGLISH [address] | | | | | | [address] [place], | | | | | | [place] [address] | | | | | | [phone] | | | | | | | | +--------+---------+ + + + | 09/29/ | Office | Urology | Mireya Pack, | | 2019 | Visit | | MANAGER ENGLISH [address] | | | | | | [address] [place], | | | | | | [place] [address] | | | | | | [phone] | | | | | | | | | | | | [place], | | | | | | [address] | | | | | | [place] [address] | | | | | | [phone] | | | | | | | | +--------+---------+ + + + documented as of this encounter Procedures + +--------+ + + + | Procedure Name | Priori | Date/Time | Associated Diagnosis | Comments | | | ty | | | | + +--------+ + + + | XR CHEST 1 VIEW | Routin | 06/04/2013 | | Results for this | | | e | 4:17 AM | | procedure are in the | | | | PDT | | results section. | + +--------+ + + + | HISTORICAL LAB PANEL | Routin | 06/04/2013 | | Results for this | | RESULT | e | 4:12 AM | | procedure are in the | | | | PDT | | results section. | + +--------+ + + + | LIPASE | Routin | 06/04/2013 | | Results for this | | | e | 4:12 AM | | procedure are in the | | | | PDT | | results section. | + +--------+ + + + | ECG 12 LEAD | Routin | 06/04/2013 | | Results for this | | | e | 3:01 AM | | procedure are in the | | | | PDT | | results section. | + +--------+ + + + documented in this encounter Results XR Chest 1 Vw (06/04/2013 4:17 AM PDT) + + | Specimen | + + | | + + + + + | Impressions | Performed At | + + + | 1. No acute findings. | | + + + + + + | Narrative | Performed At | + + + | [facility] CHEST 1 VIEW 06/04/2013 4:17 AM HISTORY: | | | Chest pain. TECHNIQUE: One view chest. FINDINGS: Compared | | | with May 26, 2013. Heart size appears normal. No acute infiltrates | | | or edema. No evidence of pneumothorax or pleural effusion. | | + + + + + | Procedure Note | + + | Richard, Rad Conversion - 09/21/2018 3:31 PM PDT [facility] CHEST 1 VIEW06/04/2013 | | 4:17 AM HISTORY:Chest pain. TECHNIQUE:One view chest. FINDINGS:Compared with May 26 | | 2013. Heart size appears normal. No acute infiltrates or edema. No evidence of | | pneumothorax or pleural effusion. IMPRESSION: 1. No acute findings. Electronically | | signed by Joe De Dios MD on 06/04/2013 6:55 AM | |Chest pain. | | | |TECHNIQUE: | |One view chest. | | | |FINDINGS: | |Compared with May 26, 2013. Heart size appears normal. No acute infiltrates or edema. No evidence of pneumothorax or pleural effusion. | | | |IMPRESSION: | |1. No acute findings. | | | | | + + HISTORICAL LAB PANEL RESULT (06/04/2013 4:12 AM PDT) + + + + + -+ | Component | Value | Ref Range | Performed | Pathologist | | | | | At | Signature | + + + + + -+ | WBC | 9.3Comment: Testing | 3.8 - 11.0 K/uL | EXTERNAL | | | | performed at [facility] | | LAB | | | | [address];[place], [place] | | | | | | [address] | | | | + + + + + -+ | Non- | 4.95Comment: Testing | 4.20 - 5.70 | EXTERNAL | | | Red Blood | performed at [facility] | M/uL | LAB | | | Cells | [address];[place] | | | | | Counted | [address] | | | | + + + + + -+ | Hemoglobin | 13.3Comment: Testing | 13.2 - 17.0 | EXTERNAL | | | | performed at [facility] | g/dL | LAB | | | | [address];[place] | | | | | | [address] | | | | + + + + + -+ | Hematocrit, | 40.6Comment: Testing | 39.0 - 50.0 % | EXTERNAL | | | POC | performed at [facility] | | LAB | | | | [address];[place] | | | | | | [address] | | | | + + + + + -+ | MCV | 82.1Comment: Testing | 80.0 - 100.0 fl | EXTERNAL | | | | performed at [facility] | | LAB | | | | [address];[place] | | | | | | [address] | | | | + + + + + -+ | MCH | 26.9 (L)Comment: Testing | 27.0 - 34.0 pg | EXTERNAL | | | | performed at [facility] | | LAB | | | | [address];[place] | | | | | | [address] | | | | + + + + + -+ | MCHC | 32.7Comment: Testing | 32.0 - 35.5 | EXTERNAL | | | | performed at [facility] | g/dL | LAB | | | | [address];[place] | | | | | | [address] | | | | + + + + + -+ | RDW-CV | 44.6Comment: Testing | 37 - 53 fl | EXTERNAL | | | | performed at [facility] | | LAB | | | | [address];[place] | | | | | | [address] | | | | + + + + + -+ | Platelet | 271Comment: Testing | 150 - 400 K/uL | EXTERNAL | | | Count | performed at [facility] | | LAB | | | Plasma | [address];[place] | | | | | | [address] | | | | + + + + + -+ | MPV | 7.1Comment: Testing | fl | EXTERNAL | | | | performed at [facility] | | LAB | | | | [address];[place] | | | | | | [address] | | | | + + + + + -+ | Differentia | AUTOMATEDComment: | | EXTERNAL | | | l Type | Testing performed at | | LAB | | | | [facility];[address];[place] [address] | | | | + + + + + -+ | % Segmented | 59.0Comment: Testing | % | EXTERNAL | | | | performed at [facility];[address] | | LAB | | | Neutrophils | [address];[place] | | | | | | [address] | | | | + + + + + -+ | % | 28.6Comment: Testing | % | EXTERNAL | | | Lymphocytes | performed at [facility];[address] | | LAB | | | | [address];[place] | | | | | | [address] | | | | + + + + + -+ | % Monocytes | 8.3Comment: Testing | % | EXTERNAL | | | | performed at [facility];[address] | | LAB | | | | [address];[place] | | | | | | [address] | | | | + + + + + -+ | % | 3.5Comment: Testing | % | EXTERNAL | | | Eosinophils | performed at [facility];[address] | | LAB | | | | [address];[place] | | | | | | [address] | | | | + + + + + -+ | % Basophils | 0.6Comment: Testing | % | EXTERNAL | | | | performed at [facility] | | LAB | | | | [address];[place] | | | | | | [address] | | | | + + + + + -+ | Absolute | 5.5Comment: Testing | 1.9 - 7.4 K/uL | EXTERNAL | | | Segmented | performed at [facility] | | LAB | | | Neutrophils | [address];[place] | | | | | | [address] | | | | + + + + + -+ | Absolute | 2.7Comment: Testing | 1.0 - 3.9 K/uL | EXTERNAL | | | Lymphocytes | performed at [facility] | | LAB | | | | [address];[place] | | | | | | [address] | | | | + + + + + -+ | Absolute | 0.8Comment: Testing | 0 - 0.8 K/uL | EXTERNAL | | | Monocytes | performed at [facility] | | LAB | | | | [address];[place] | | | | | | [address] | | | | + + + + + -+ | Absolute | 0.3Comment: Testing | 0 - 0.5 K/uL | EXTERNAL | | | Eosinophils | performed at [facility] | | LAB | | | | [address];[place] | | | | | | [address] | | | | + + + + + -+ | Absolute | 0.1Comment: Testing | 0 - 0.1 K/uL | EXTERNAL | | | Basophils | performed at [facility] | | LAB | | | | [address];[place] | | | | | | [address] | | | | + + + + + -+ | Na | 140Comment: Testing | 135 - 143 | EXTERNAL | | | | performed at [facility] | mmol/L | LAB | | | | [address];[place] | | | | | | [address] | | | | + + + + + -+ | K | 3.8Comment: Testing | 3.5 - 4.9 | EXTERNAL | | | | performed at [facility] | mmol/L | LAB | | | | [address];[place] | | | | | | [address] | | | | + + + + + -+ | Cl | 104Comment: Testing | 99 - 109 mmol/L | EXTERNAL | | | | performed at [facility] | | LAB | | | | [address];[place] | | | | | | [address] | | | | + + + + + -+ | CO2 | 31Comment: Testing | 23 - 32 mmol/L | EXTERNAL | | | | performed at [facility] | | LAB | | | | [address];[place] | | | | | | [address] | | | | + + + + + -+ | Anion Gap | 9Comment: Testing | 5 - 20 mmol/L | EXTERNAL | | | | performed at [facility] | | LAB | | | | [address];[place] | | | | | | [address] | | | | + + + + + -+ | Glucose, | 195 (H)Comment: Testing | 65 - 99 mg/dL | EXTERNAL | | | Fasting | performed at [facility] | | LAB | | | | [address];[place] | | | | | | [address] | | | | + + + + + -+ | BUN | 18Comment: Testing | 8 - 25 mg/dL | EXTERNAL | | | | performed at [facility] | | LAB | | | | [address];[place] | | | | | | [address] | | | | + + + + + -+ | Creatinine | 1.09Comment: Testing | 0.70 - 1.30 | EXTERNAL | | | | performed at [facility] | mg/dL | LAB | | | | [address];[place] | | | | | | [address] | | | | + + + + + -+ | BUN/Creatin | 17Comment: Testing | | EXTERNAL | | | ine Ratio | performed at [facility] | | LAB | | | | [address];[place] | | | | | | [address] | | | | + + + + + -+ | Calcium | 8.6Comment: Testing | 8.5 - 10.2 | EXTERNAL | | | | performed at [facility] | mg/dL | LAB | | | | [address];[place] | | | | | | [address] | | | | + + + + + -+ | Protein, | 7.1Comment: Testing | 6.3 - 8.2 g/dL | EXTERNAL | | | Total | performed at [facility] | | LAB | | | | [address];[place] | | | | | | [address] | | | | + + + + + -+ | Albumin | 3.3 (L)Comment: Testing | 3.6 - 5.0 g/dL | EXTERNAL | | | | performed at [facility] | | LAB | | | | [address];[place] | | | | | | [address] | | | | + + + + + -+ | Globulin | 3.8Comment: Testing | 1.3 - 4.9 g/dL | EXTERNAL | | | | performed at [facility] | | LAB | | | | [address];[place] | | | | | | [address] | | | | + + + + + -+ | A/G Ratio | 0.9 (L)Comment: Testing | 1.0 - 2.4 | EXTERNAL | | | | performed at [facility] | | LAB | | | | [address];[place] | | | | | | [address] | | | | + + + + + -+ | Bilirubin | 0.3Comment: Testing | 0.1 - 1.5 mg/dL | EXTERNAL | | | Total | performed at [facility] | | LAB | | | | [address];[place] | | | | | | [address] | | | | + + + + + -+ | ALP, | 97Comment: Testing | 35 - 115 U/L | EXTERNAL | | | External | performed at [facility] | | LAB | | | | [address];[place] | | | | | | [address] | | | | + + + + + -+ | AST | 22Comment: Testing | 10 - 45 U/L | EXTERNAL | | | | performed at [facility] | | LAB | | | | [address];[place] | | | | | | [address] | | | | + + + + + -+ | ALT | 22Comment: Testing | 10 - 65 U/L | EXTERNAL | | | | performed at [facility] | | LAB | | | | [address];[place] | | | | | | [address] | | | | + + + + + -+ | Estimated | >60Comment: GFR <60: | [...] | | | | | | at [facility];[place] [address] | | | | + + + + + -+ | CK, Total | 81Comment: Testing | 55 - 400 U/L | EXTERNAL | | | | performed at [facility] | | LAB | | | | [address];[place] | | | | | | [address] | | | | + + + + + -+ | INR | 1.0Comment: REFERENCE | | EXTERNAL | | | | RANGE:0.9 - 1.2 | | LAB | | | | NON-ANTICOAGULATED2.0 | | [...] | | | | | performed at [facility] | | | | | | [address];[place] | | | | | | [address] | | | | + + + + + -+ | aPTT, | 24Comment: Testing | 23 - 32 seconds | EXTERNAL | | | Patient | performed at [facility];[address] | | LAB | | | | [address];[place] | | | | | | [address] | | | | + + + + + -+ | CK-MB | 3.3Comment: Testing | 0.5 - 3.6 ng/mL | EXTERNAL | | | | performed at [facility] | | LAB | | | | [address];[place] | | | | | | [address] | | | | + + + + + -+ | CK-MB Index | 4.1Comment: CK INDEX | | EXTERNAL | | | | INTERPRETATION: | | LAB | | | | MMB ng/mL | | | | | | | | | | | |CK INDEX INTERPRETATION: | | | | | | MMB ng/mL | | | | | | | | | | + + + + + -+ + + | Specimen | + + | | + + + +---------+ + + | Performing | Address | City/State/Zipcode | Phone Number | | Organization | | | | + +---------+ + + | EXTERNAL LAB | | | | + +---------+ + + Lipase (06/04/2013 4:12 AM PDT) + + + + + + | Component | Value | Ref Range | Performed | Pathologist | | | | | At | Signature | + + + + + + | Lipase | 153Comment: Testing | 73 - 393 U/L | EXTERNAL | | | | performed at [facility] | | LAB | | | | [address];[place], [place] | | | | | | [address] | | | | + + + [...] + +---------+ + + ECG 12 lead (06/04/2013 3:01 AM PDT) + + + + + + | Component | Value | Ref Range | Performed | Pathologist | | | | | At | Signature | + + + + + + | DIAGNOSIS: | Sinus | | EXTERNAL | | | | bradycardiaOtherwise | | LAB | | | | normal ECGWhen compared | | | | | | with ECG of 27-MAY-2013 | | | | | | 05:40,No significant | | | | | | [...] | | | | | ONLY, -COMPUTER ([id number]), | | | | | | mapping editor Anshu Soliz | | | | | | (34) on 06/04/2013 | | | | | | 6:14:34 AM | | | | + + + + + + + + | Specimen | + + | | + + + + + | Narrative | Performed At | + + + | Historically converted procedure from [facility] Epic environment | EXTERNAL LAB | + + + + +---------+ + + | Performing | Address | City/State/Zipcode | Phone Number | | Organization | | | | + +---------+ + + | EXTERNAL LAB | | | | + +---------+ + + documented in this encounter Visit Diagnoses + + | Diagnosis | + + | Abdominal pain Abdominal pain, unspecified site | + + | Non-cardiac chest pain Other chest pain | + + documented in this encounter
--- OUTSIDE RECORDS SUMMARY | ~2019-09-09 | XMS | Encounter Summary ---
Demographics + + + | Address | [address] | | | [place] [address] | + + + | Home Phone | | + + + | Preferred Language | Unknown | + + + | Marital Status | | + + + | Taoist Affiliation | 1027 | + + + | Race | Unknown | + + + | Ethnic Group | Unknown | + + + Author + + + | Author | [facility] | | | and [place] | + + + | Organization | [facility] | | | and [place] | + + + | Address | Unknown | + + + | Phone | Unavailable | + + + Support + + + + + | Name | Relationship | Address | Phone | + + + + + | Sammi Kohler | ECON | [place] [address] | | + + + + + Care Team Providers + +------+ + | Care Mantel Craftsman Name | Role | Phone | + +------+ + PCP | Unavailable | + +------+ + Encounter Details +--------+ + + + + | Date | Type | Department | Care Team | Description | +--------+ + + + + | 09/11/ | Hospital | [facility] | Jevon Key | Symptomatic | | 2013 - | Encounter | [facility] [address] | B, DO [address] | cholelithiasis; | | | | [address] | [address] | Biliary colic; | | 09/14/ | | [place], [place] | [place] [address] | Vomiting; | | 2012 | | [address] | [phone] | Cholelithiasis; | | | | [phone] | | Labile hypertension; | | | | | | Accelerated | | | | | | hypertension; Atrial | | | | | | fibrillation (HCC); | | | | | | Diabetes mellitus | | | | | | type II; RUQ pain | +--------+ + + + + Social [...] + documented as of this encounter Discharge Summaries Jevon Key DO - 10/03/2012 1:37 PM PDT Discharge Summaries by Jevon Key DO at 10/03/12 3051 Author: Jevon Key DO Service: (none) Author Type: Physician Filed: 10/03/12 0479 Date of Service: 10/03/12 3274 Status: Signed Furnace Maintenance: Jevon Key DO (Physician) [facility] Service: General Surgery Discharge Summary Date of Admission: 09/11/2012 Date of Discharge: 09/14/2012 Discharge Provider: JEVON KEY DO Treatment Team: Consulting Physician: Augustine Mukherjee MD Admitting Provider: Jevon Key DO Discharge Diagnoses: Principal Problem: *Accelerated hypertension Active Problems: Diabetes mellitus type II Atrial fibrillation RUQ pain Cholelithiases Labile hypertension Resolved Problems: * No resolved hospital problems. * Final Diagnoses: Hypertensive urgency, lap rupesh Procedures: Procedure(s) with comments: LAPAROSCOPIC - CHOLECYSTECTOMY Significant Diagnostic Studies: see chart BRIEF HISTORY OF PRESENTATION: Norah Gr is a 56 y.o. male who presented with abdominal pain HOSPITAL COURSE: The patient had abdominal pain and was treated in the OR with a laparoscopic cholecyst ectomy. Post-operatively his hypertension was uncontrolled with labetalol and hydralazine. IM was c onsulted for management. He was ultimately controlled and discharged home. Past Medical History Diagnosis Date Diabetes mellitus type II Atrial fibrillation Hypertension Hyperlipidemia Anxiety Depression WARD (obstructive sleep apnea) 08/11/2012 Basal cell carcinoma 09/26/2012 Unspecified visual disturbance Past Surgical History Procedure Date Unlisted procedure arthroscopy Knee surgery Leg surgery LLE Colonoscopy Cholecystectomy, laparoscopic 09/12/2012 Procedure: LAPAROSCOPIC - CHOLECYSTECTOMY; Surgeon: Jevon Key DO; Location: [facility] MAIN OR; Service: General; 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; Abdominal surgery Cholecystectomy Allergies Allergen Reactions B12-Ca Rash "B12" makes gives him a rash No prescriptions prior to admission DISCHARGE EXAM Vital Signs: BP 117/73 | Pulse 53 | Temp 98 F (36.7 C) (Oral) | Resp 16 | Ht 1.803 m (5' 11") | Wt 1 11.5 kg (245 lb 13 oz) | BMI 34.28 kg/m2 | SpO2 90% Physical Exam DATA CBC: Lab Results Component Value Date WBC 12.8* 09/21/2012 RBC 2.95* 09/21/2012 HGB 8.3* 09/21/2012 HCT 25.3* 09/21/2012 MCV 85.6 09/21/2012 MCH 28.1 09/21/2012 MCHC 32.8 09/21/2012 RDW 44.6 09/21/2012 PLT 322 09/21/2012 MPV 7.3 09/21/2012 DIFFTYPE AUTOMATED 09/21/2012 CMP: Lab Results Component Value Date NA 144* 09/21/2012 K 4.0 09/21/2012 CL 102 09/21/2012 CO2 28 09/21/2012 ANIONGAP 19 09/21/2012 GLUF 136* 09/21/2012 BUN 31* 09/21/2012 CREATININE 1.42* 09/21/2012 BCR 22 09/21/2012 CA 8.6 09/21/2012 PROT 6.8 09/21/2012 ALB 2.6* 09/21/2012 GLOB 4.2 09/21/2012 BILITOT 0.3 09/21/2012 ALP 274* 09/21/2012 AST 175* 09/21/2012 ALT 210* 09/21/2012 EGFR 55* 09/21/2012 PLAN Hypertension SP lap rupesh Disposition: Home Condition: Stable Code Status: Prior No discharge procedures on file. Follow up: No follow-up provider specified. Discharge Medication List as of 09/14/2012 9:31 AM START taking these medications Details aspirin 81 MG tablet Take 1 tablet by mouth daily with breakfast., Starting 09/14/2012, Unti l 09/14/13, Print cloNIDine (CATAPRES) 0.1 MG tablet Take 1 tablet by mouth 2 (two) times daily., Starting , Until 09/14/13, Print lisinopril (PRINIVIL,ZESTRIL) 20 MG tablet Take 1 tablet by mouth daily., Starting 3, Until 09/14/13, Print oxyCODONE-acetaminophen (ROXICET) 5-325 MG per tablet Take 1-2 tablets by mouth every 4 (f our) hours as needed for Pain., Starting 09/13/2012, Until Mon09/23/12, Print CONTINUE these medications which have CHANGED Details fluticasone-salmeterol (ADVAIR DISKUS) 250-50 MCG/DOSE AEPB Inhale 1 puff into the lungs e very 12 (twelve) hours., Starting 09/14/2012, Until Discontinued, Print CONTINUE these medications which have NOT CHANGED Details ARIPiprazole (ABILIFY) 10 MG tablet Take 10 mg by mouth daily., Until Discontinued, Histor ical Med atenolol (TENORMIN) 100 MG tablet Take 200 mg by mouth nightly., Until Discontinued, Histo rical Med clopidogrel (PLAVIX) 75 MG tablet Take 75 mg by mouth daily., Until Discontinued, Historic al Med diltiazem (DILACOR XR) 120 MG 24 hr capsule Take 240 mg by mouth daily., Until Discontinue d, Historical Med fenofibrate (TRIGLIDE) 160 MG tablet Take 160 mg by mouth daily. , Until Discontinued, Hi storical Med glipiZIDE (GLUCOTROL) 5 MG tablet Take 5 mg by mouth 2 (two) times daily before meals. , Until Discontinued, Historical Med ipratropium-albuterol (COMBIVENT) 18-103 MCG/ACT inhaler Inhale 2 puffs into the lungs cintia ry 6 (six) hours as needed for Wheezing., Starting 08/14/2012, Until Mon08/14/13, Print METFORMIN HCL PO Take 1,000 mg by mouth 2 (two) times daily., Until Discontinued, Historic al Med paroxetine (PAXIL) 40 MG tablet Take 40 mg by mouth every morning. , Until Discontinued, Historical Med pravastatin (PRAVACHOL) 20 MG tablet Take 20 mg by mouth nightly., Until Discontinued, His torical Med ranitidine (ZANTAC) 150 MG tablet Take 1 tablet by mouth 2 (two) times daily., Starting , Until Mon12/12/12, Print tiotropium (SPIRIVA) 18 MCG inhalation capsule Inhale 18 mcg into the lungs daily., Until Discontinued, Historical Med cyanocobalamin 1000 MCG tablet Take 100 mcg by mouth daily. , Until Discontinued, Histori amadou Med niacin (NIASPAN) 500 MG CR tablet Take 500 mg by mouth 2 (two) times daily. 2 tabs in am, 1 tab in pm , Until Discontinued, Historical Med TAMSULOSIN HCL PO Take 0.4 mg by mouth., Until Discontinued, Historical Med triamterene-hydrochlorothiazide (MAXZIDE) 75-50 MG per tablet Take 1 tablet by mouth daily . , Until Discontinued, Historical Med STOP taking these medications HYDROcodone-acetaminophen (NORCO) 5-325 MG per tablet Comments: Reason for Stopping: hydrocodone-acetaminophen (VICODIN) 5-500 MG per tablet Comments: Reason for Stopping: Discharge took 10 minutes, to include final examination, discussion of admission, and prepa ration of prescriptions, instructions for on-going care, follow-up and documentation of disc harge summary. JEVON KEY DO 10/03/2012 documented in thi s encounter Medications at Time of Discharge + [...] Progress Notes Conversion Transaction, Provider Unknown - 09/14/2012 9:50 AM PDTFormatting of this note m ight be different from the original. Progress Notes by Yu Ambrose RN at 09/14/12949 Author: Yu Ambrose RN Service: (none) Author Type: Registered Nurse Filed: 09/14/12949 Date of Service: 09/14/12949 Status: Signed Furnace Maintenance: Yu Ambrose RN (Registered Nurse) Discharge teaching done, instructions given. Pt states understanding. Medications discussed , no questions or concerns. Pt instructed to wear MARVIN hose at home until cleared by and radu perez instructions and diet for anti-coag therapy. Pt instructed to contact MD with any conc erns or if signs/symptoms re-occur that were associated with this hospitalization. Yu Ambrose RN 09/14/2012 9:50 AM Augustine Vee MD - 09/14/2012 9:11 AM PDT Progress Notes by Augustine Mukherjee MD at 09/14/12910 Author: Augustine Mukherjee MD Service: Hospitalist Author Type: Physician Filed: 09/14/12917 Date of Service: 09/14/12910 Status: Signed Furnace Maintenance: Augustine Mukherjee MD (Physician) [facility] Service: Hospitalist Progress Note Norah Gr 56 y.o. [id number] [facility] Day: LOS: 3 days SUBJECTIVE Patient Summary: Patient is a 55-year-old male with past medical history of DM type 2, HTN, HLD, Atrial Fib rillation who was admitted due to RUQ abdomina pain by Dr. Key. An ultrasound was done w [facility] revealed cholelithiasis and he underwent cholecystectomy. Apparently, the surgery was w ithout complications but his BP remained elevated which is why hospitalist services was cons ulted for medical management of elevated and accelerated blood pressure. Events Overnight: Patient seen and examined. Overnight events noted. Patient reported feeling better and his BP is now better. He feels ready to go home now. He was less anxious and not irritable. He d enied any chest pains, shortness of breath, cough and no headaches, nausea or vomiting. The abdominal pain was stable. Appetite is improving. Remained afebrile. Scheduled Medications ARIPiprazole 10 mg Oral Daily aspirin 325 mg Oral Daily with breakfast atenolol 200 mg Oral Nightly cefOXitin (MEFOXIN) IVPB 2 g Intravenous Q6H cloNIDine 0.1 mg Oral BID clopidogrel 75 mg Oral Daily diltiazem 240 mg Oral Daily fenofibrate 160 mg Oral Daily fluticasone-salmeterol 1 puff Inhalation 2 times daily glipiZIDE 5 mg Oral BID AC heparin (porcine) 5,000 Units Subcutaneous Q8H insulin aspart 0-3 Units Subcutaneous Nightly insulin aspart 0-6 Units Subcutaneous TID AC insulin regular 2 Units Subcutaneous TID AC lisinopril 20 mg Oral Daily niacin 500 mg Oral BID paroxetine 40 mg Oral QAM pravastatin 20 mg Oral Nightly ranitidine 150 mg Oral BID tamsulosin 0.4 mg Oral after dinner tiotropium 18 mcg Inhalation Daily triamterene-hydrochlorothiazide 1 tablet Oral Daily DISCONTD: lisinopril 10 mg Oral Daily DISCONTD: metoprolol 25 mg Oral BID Continuous Infusions dextrose DISCONTD: sodium chloride 110 mL/hr at 09/13/12 0340 PRN Medications acetaminophen, acetaminophen, dextrose, dextrose, dextrose, glucagon, glucagon, hydrALAZINE , HYDROmorphone, HYDROmorphone, insulin aspart, ipratropium-albuterol, labetalol, ondansetro n, ondansetron, oxyCODONE-acetaminophen, oxyCODONE-acetaminophen, polyethylene glycol, zolpi dem, DISCONTD: hydrALAZINE Allergy: Allergies Allergen Reactions Vitamin B12 Anaphylaxis OBJECTIVE Vital Signs: BP 117/73 | Pulse 53 | Temp 98 F (36.7 C) (Oral) | Resp 16 | Ht 1.803 m (5' 11") | Wt 1 11.5 kg (245 lb 13 oz) | BMI 34.28 kg/m2 | SpO2 90% I&O Detailed Table: I/O last 3 completed shifts: In: 1100 [P.O.:1100] Out: 2930 [Urine:2900; Drains:30] Weight change: Hemodynamics Last 24hrs: Examination: Constitutional: Patient is alert and oriented. Appears well-developed and nourished. HEENT: Head: Normocephalic and Atraumatic. Nose: Nose normal. Mouth/Throat: Oropharynx is clear and moist. Eyes: No conjunctiva injection. EOM Intact. PERRLA. No scleral icterus. Neck: Neck supple. No JVD present. No tracheal deviation present. No thyromegaly Cardiovascular: Regular rate and rhythm, no murmur heard and no friction rub. Pulmonary/Chest: Symmetrical chest expansion, no stridor, no wheezes and no rales. Abdominal: Soft, BS present, Drain noted to be at the RLQ and incision areas were clean. Musculoskeletal: Normal range of motion. No joint tenderness. No pedal edema. Neurological: No focal neurologic deficits. Has normal reflexes. No CN deficits. Skin: Skin is warm and dry. No rash noted. No erythema. No pallor. Psychiatric: No psychosis, reported normal mood. Judgment normal. LABS: Recent Results (from the past 24 hour(s)) POCT GLUCOSE Collection Time 09/13/12 11:14 AM Component Value Range GLUCOSE,POC SCREEN 181 (*) 65 - 99 mg/dL POCT GLUCOSE Collection Time 09/13/12 4:53 PM Component Value Range GLUCOSE,POC SCREEN 186 (*) 65 - 99 mg/dL POCT GLUCOSE Collection Time 09/13/12 10:28 PM Component Value Range GLUCOSE,POC SCREEN 208 (*) 65 - 99 mg/dL POCT GLUCOSE Collection Time 09/14/12 6:13 AM Component Value Range GLUCOSE,POC SCREEN 159 (*) 65 - 99 mg/dL ABDOMINAL ULTRASOUND IMPRESSION: Some dense dependent sludge, occasional small discrete stones -- could be associated with b iliary dysfunction or intermittent symptoms. LEM LIST Principal Problem: *Accelerated hypertension Active Problems: Diabetes mellitus type II Atrial fibrillation RUQ pain Cholelithiases Labile hypertension ASSESSMENT & PLAN Accelerated / Labile Hypertension: BP is mor stable now with combination of Diltiazem, Liza nopril Clonidine and Atenolol. Need BP monitoring after discharge. Atrial Fibrillation: Stable and rate controlled. To continue Diltiazem at home dosages and baby ASA. His EF of 59% is noted. His CHADS 2 score is 2 and we discussed the anticoagulatio n issues as well. He is already on Plavix and it would be reasonable to continue ASA 81 mg d aily and follow up with is PCP on an out patient basis. Diabetes Mellitus Type 2: Seems to be fair at this time. Will continue Glipizide and Metfor min BID. Will follow accu checks and adjust dose as needed. Cholelithiasis / RUQ Pain: S/P Laparoscopic cholecystectomy POD # 2. Stable, Dr. Key is following as primary services. Drain remains in place and plans to keep till next Monday. Discharge plans today since BP is improved. Spent 25 minutes reviewing patient's labs, dominguez gnostic tests, examination of patient, discussing plan of care with patient and family, coor dination of care and answered their questions. He eventually agreed to stay overnight for ag gressive management of his BP. AUGUSTINE MUKHERJEE MD 09/14/2012 Augustine Vee MD - 09/13/2012 4:02 PM PDTFormatting of this note might be different from the bobbi ribera. Progress Notes by Augustine Mukherjee MD at 09/13/12 1602 Author: Augustine Mukherjee MD Service: Hospitalist Author Type: Physician Filed: 09/13/12 1621 Date of Service: 09/13/12 1602 Status: Signed Furnace Maintenance: Augustine Mukherjee MD (Physician) [facility] Service: Hospitalist Progress Note Norah Gr 56 y.o. [id number] [facility] Day: LOS: 2 days SUBJECTIVE Patient Summary: Patient is a 55-year-old male with past medical history of DM type 2, HTN, HLD, Atrial Fib rillation who was admitted due to RUQ abdomina pain by Dr. Key. An ultrasound was done w [facility] revealed cholelithiasis and he underwent cholecystectomy. [facility] but his BP remained elevated which is why hospitalist services was cons ulted for medical management of elevated and accelerated blood pressure. Events Overnight: Patient seen and examined. Overnight events noted. Staff called because patient wanted to l eave the hospital today despite elevated BP level above 200 systolic. He was anxious, irrita ble and often restless. He denied any chest pains, shortness of breath, cough and no headach es, nausea or vomiting. The abdominal pain was stable and he has been tolerating diet. Appchad pepe is improving. Remained afebrile. Scheduled Medications ARIPiprazole 10 mg Oral Daily aspirin 325 mg Oral Daily with breakfast atenolol 200 mg Oral Nightly cefOXitin (MEFOXIN) IVPB 2 g Intravenous Q6H cloNIDine 0.1 mg Oral BID clopidogrel 75 mg Oral Daily diltiazem 240 mg Oral Daily fenofibrate 160 mg Oral Daily fluticasone-salmeterol 1 puff Inhalation 2 times daily glipiZIDE 5 mg Oral BID AC heparin (porcine) 5,000 Units Subcutaneous Q8H insulin aspart 0-3 Units Subcutaneous Nightly insulin aspart 0-6 Units Subcutaneous TID AC insulin regular 2 Units Subcutaneous TID AC lisinopril 20 mg Oral Daily metoprolol 5 mg Intravenous Once metoprolol 5 mg Intravenous Once niacin 500 mg Oral BID paroxetine 40 mg Oral QAM pravastatin 20 mg Oral Nightly ranitidine 150 mg Oral BID tamsulosin 0.4 mg Oral after dinner tiotropium 18 mcg Inhalation Daily triamterene-hydrochlorothiazide 1 tablet Oral Daily DISCONTD: ARIPiprazole 10 mg Oral Daily DISCONTD: atenolol 100 mg Oral Daily DISCONTD: fentaNYL DISCONTD: lisinopril 10 mg Oral Daily DISCONTD: metoprolol 25 mg Oral BID DISCONTD: midazolam DISCONTD: pravastatin 20 mg Oral Nightly Continuous Infusions dextrose DISCONTD: sodium chloride 110 mL/hr at 09/12/12 1847 DISCONTD: sodium chloride 110 mL/hr at 09/13/12 0340 PRN Medications acetaminophen, acetaminophen, dextrose, dextrose, dextrose, glucagon, glucagon, hydrALAZINE , HYDROmorphone, HYDROmorphone, insulin aspart, ipratropium-albuterol, labetalol, ondansetro n, ondansetron, oxyCODONE-acetaminophen, oxyCODONE-acetaminophen, polyethylene glycol, zolpi dem, DISCONTD: acetaminophen, DISCONTD: acetaminophen, DISCONTD: fentaNYL, DISCONTD: fentaNY L, DISCONTD: hydrALAZINE, DISCONTD: hydrALAZINE, DISCONTD: HYDROmorphone DISCONTD: HYDROmorphone, DISCONTD: HYDROmorphone, DISCONTD: HYDROmorphone, DISCONTD: HYDROm orphone, DISCONTD: labetalol, DISCONTD: meperidine, DISCONTD: metoclopramide, DISCONTD: nalo xone, DISCONTD: ondansetron, DISCONTD: ondansetron, DISCONTD: ondansetron, DISCONTD: polyeth ylene glycol Allergy: Allergies Allergen Reactions Vitamin B12 Anaphylaxis OBJECTIVE Vital Signs: BP 193/89 | Pulse 86 | Temp 96.4 F (35.8 C) (Oral) | Resp 16 | Ht 1.803 m (5' 11") | Wt 111.5 kg (245 lb 13 oz) | BMI 34.28 kg/m2 | SpO2 94% I&O Detailed Table: I/O last 3 completed shifts: In: 2019 [P.O.:920; I.V.:1100] Out: 1500 [Urine:1500] Weight change: 2.183 kg (4 lb 13 oz) Hemodynamics Last 24hrs: Examination: Constitutional: Patient is alert and oriented. Appears well-developed and nourished. HEENT: Head: Normocephalic and Atraumatic. Nose: Nose normal. Mouth/Throat: Oropharynx is clear and moist. Eyes: No conjunctiva injection. EOM Intact. PERRLA. No scleral icterus. Neck: Neck supple. No JVD present. No tracheal deviation present. No thyromegaly Cardiovascular: Regular rate and rhythm, no murmur heard and no friction rub. Pulmonary/Chest: Symmetrical chest expansion, no stridor, no wheezes and no rales. Abdominal: Soft, BS present, Drain noted to be at the RLQ and incision areas were clean. Musculoskeletal: Normal range of motion. No joint tenderness. No pedal edema. Neurological: No focal neurologic deficits. Has normal reflexes. No CN deficits. Skin: Skin is warm and dry. No rash noted. No erythema. No pallor. Psychiatric: No psychosis, reported normal mood. Judgment normal. LABS: Recent Results (from the past 24 hour(s)) POCT GLUCOSE Collection Time 09/12/12 10:33 PM Component Value Range GLUCOSE,POC SCREEN 193 (*) 65 - 99 mg/dL COMPREHENSIVE METABOLIC PANEL Collection Time 09/13/12 4:20 AM Component Value Range SODIUM 135 135 - 143 mmol/L POTASSIUM 4.1 3.5 - 4.9 mmol/L CHLORIDE 100 99 - 109 mmol/L CO2 27 23 - 32 mmol/L ANION GAP AGAP 12 5 - 20 mmol/L GLUCOSE 208 (*) 65 - 99 mg/dL BUN 18 8 - 25 mg/dL CREATININE 1.19 0.70 - 1.30 mg/dL BUN/CREAT 15 CALCIUM 9.9 8.5 - 10.2 mg/dL TOTAL PROTEIN 7.2 6.3 - 8.2 g/dL Albumin 4.0 3.6 - 5.0 g/dL GLOBULIN 3.2 1.3 - 4.9 g/dL A/G 1.3 1.0 - 2.4 TBIL 0.6 0.1 - 1.5 mg/dL ALK PHOS 69 35 - 115 U/L AST 30 10 - 45 U/L ALT 29 10 - 65 U/L EGFR >60 >60 mL/min/1.73m2 PROTEIN, URINE, RANDOM Collection Time 09/13/12 5:20 AM Component Value Range UR PROTEIN,RANDOM 18 CREATININE, URINE, RANDOM Collection Time 09/13/12 5:20 AM Component Value Range UR CREAT,RANDOM 140.1 URINE MICROSCOPIC ONLY Collection Time 09/13/12 5:20 AM Component Value Range WBC 0-2 0 - 5 /hpf RBC NONE SEEN 0 - 5 /hpf EPITHELIAL 11-15 BACTERIA NONE SEEN NONE SEEN Hyaline Cast 0-2 POCT GLUCOSE Collection Time 09/13/12 5:41 AM Component Value Range GLUCOSE,POC SCREEN 231 (*) 65 - 99 mg/dL ABDOMINAL ULTRASOUND IMPRESSION: Some dense dependent sludge, occasional small discrete stones -- could be associated with b iliary dysfunction or intermittent symptoms. LEM LIST Principal Problem: *Accelerated hypertension Active Problems: Diabetes mellitus type II Atrial fibrillation RUQ pain Cholelithiases Labile hypertension ASSESSMENT & PLAN Accelerated / Labile Hypertension: BP has been elevated since morning with mild variations. His BP has been difficult to control previously as well as reported by the patient. Will re sume Diltiazem, increase Lisinopril to 20 mg daily and add Clonidine 0.1 mg BID. Will monito r BP closely and adjust doses as needed. Patient agreed to stay overnight but stated he would by 10 in the morning. This was discuss ed with his POA and she wanted him to stay till his condition is stable. Atrial Fibrillation: Stable and rate controlled. Will resume Diltiazem at home dosages. Cecille kinsey had a [place] stress test in 2011 and showed an EF of 59% which is considered stable and wit h in normal limits. His CHADS 2 score is 2 and we discussed the anticoagulation issues as we ll. At this time he would be on full dose ASA 325 mg daily and follow up with is PCP on an o ut patient basis. Diabetes Mellitus Type 2: Seems to be fair at this time. Will continue Glipizide and resume Metformin BID. Will follow accu checks and adjust dose as needed. Cholelithiasis / RUQ Pain: S/P Laparoscopic cholecystectomy POD # 1. Stable, Dr. Key is following as primary services. Drain remains in place and plans to keep till next Monday. Discharge plans when stable and BP is improved possibly tomorrow. Spent more than 45 minute s reviewing patient's labs, diagnostic tests, examination of patient, discussing plan of car e with patient and family, coordination of care and answered their questions. He eventually agreed to stay overnight for aggressive management of his BP. AUGUSTINE MUKHERJEE MD 09/13/2012 onversion Tra nsaction, Provider Unknown - 09/13/2012 3:13 PM PDTFormatting of this note might be differe nt from the original. Case Management by QUINN Wharton at 09/13/12 0744 Author: Amechi Akosa, RESTORATIVE AIDE Service: (none) Author Type: Cabinetmaker Helper Filed: 09/13/12 1528 Date of Service: 09/13/12 1513 Status: Signed Furnace Maintenance: QUINN Wharton (Cabinetmaker Helper) CM met with pt to introduce community resources and support. Pt reported " I want to get ou t of here. Where is the MD to dc me?" CM and pt's MD contacted pt's MD to f/u with pt. Per Emre Mukherjee, pt will dc on 09/14/2012. Continuum of care as needed and plan for dc. Jevon Abreu DO - 09/13/2012 12:45 PM PDTFormatting of this note might be different from guillermina sarmiento. Progress Notes by Jevon Key DO at 09/13/12 1245 Author: Jevon Key DO Service: General Surgery Author Type: Physician Filed: 09/13/12 1248 Date of Service: 09/13/12 1245 Status: Signed Furnace Maintenance: Jevon Key DO (Physician) [facility] Service: General Surgery Progress Note Hospital Day: LOS: 2 days Post-Op Day: 1 Day Post-Op Chief complaint: Abdominal pain SUBJECTIVE Events Overnight: Has been very hypertensive overnight. BP remains poorly controlled. Pain controlled well. No nausea or vomiting. Scheduled Medications ARIPiprazole 10 mg Oral Daily atenolol 200 mg Oral Nightly cefOXitin (MEFOXIN) IVPB 2 g Intravenous Q6H cefOXitin 2 g Intravenous Fluid Dynamicist to OR clopidogrel 75 mg Oral Daily fenofibrate 160 mg Oral Daily fluticasone-salmeterol 1 puff Inhalation 2 times daily glipiZIDE 5 mg Oral BID AC heparin (porcine) 5,000 Units Subcutaneous Q8H insulin aspart 0-3 Units Subcutaneous Nightly insulin aspart 0-6 Units Subcutaneous TID AC insulin regular 2 Units Subcutaneous TID AC lisinopril 10 mg Oral Daily metoprolol 5 mg Intravenous Once metoprolol 5 mg Intravenous Once niacin 500 mg Oral BID paroxetine 40 mg Oral QAM pravastatin 20 mg Oral Nightly ranitidine 150 mg Oral BID tiotropium 18 mcg Inhalation Daily triamterene-hydrochlorothiazide 1 tablet Oral Daily DISCONTD: ARIPiprazole 10 mg Oral Daily DISCONTD: atenolol 100 mg Oral Daily DISCONTD: fentaNYL DISCONTD: midazolam DISCONTD: pravastatin 20 mg Oral Nightly Continuous Infusions dextrose sodium chloride 110 mL/hr at 09/13/12 0340 DISCONTD: sodium chloride 110 mL/hr at 09/12/12 1847 PRN Medications acetaminophen, acetaminophen, dextrose, dextrose, dextrose, glucagon, glucagon, hydrALAZINE , HYDROmorphone, HYDROmorphone, insulin aspart, ipratropium-albuterol, labetalol, ondansetro n, ondansetron, oxyCODONE-acetaminophen, oxyCODONE-acetaminophen, polyethylene glycol, zolpi dem, DISCONTD: acetaminophen, DISCONTD: acetaminophen, DISCONTD: bupivacaine-EPINEPHrine PF, DISCONTD: fentaNYL, DISCONTD: fentaNYL, DISCONTD: hydrALAZINE DISCONTD: HYDROmorphone, DISCONTD: HYDROmorphone, DISCONTD: HYDROmorphone, DISCONTD: HYDROm orphone, DISCONTD: HYDROmorphone, DISCONTD: labetalol, DISCONTD: meperidine, DISCONTD: metoc lopramide, DISCONTD: naloxone, DISCONTD: ondansetron, DISCONTD: ondansetron, DISCONTD: ondan setron, DISCONTD: polyethylene glycol OBJECTIVE Vital Signs: BP 193/89 | Pulse 86 | Temp 96.4 F (35.8 C) (Oral) | Resp 16 | Ht 1.803 m (5' 11") | Wt 111.5 kg (245 lb 13 oz) | BMI 34.28 kg/m2 | SpO2 94% Patient Vitals for the past 24 hrs: BP Temp Temp src Pulse Resp SpO2 Weight 09/13/12 1111 193/89 mmHg 96.4 F (35.8 C) Oral 86 16 94 % - 09/13/12 1005 206/96 mmHg - - - - - - 09/13/12 0900 203/101 mmHg - - - - - - 09/13/12 0825 214/96 mmHg 96.1 F (35.6 C) Oral 75 16 92 % - 09/13/12 0705 165/88 mmHg - - - - - - 09/13/12 0513 198/91 mmHg - - - - - 111.5 kg (245 lb 13 oz) 09/13/12 0350 189/87 mmHg 99.7 F (37.6 C) Oral 80 16 88 % - 09/13/12 0011 183/94 mmHg 98.6 F (37 C) Oral 88 16 92 % - 09/12/12 2130 178/90 mmHg - - 87 16 - - 09/12/12 2030 204/109 mmHg - - 92 16 - - 09/12/12 1949 198/110 mmHg 99.4 F (37.4 C) Oral 90 16 98 % - 09/12/12 1930 198/110 mmHg - - 91 18 - - 09/12/12 1900 198/105 mmHg - - 90 18 - - 09/12/12 1830 198/115 mmHg - - 94 16 99 % - 09/12/12 1815 168/94 mmHg - - 85 16 92 % - 09/12/12 1800 181/93 mmHg - - 79 15 93 % - 09/12/12 1745 170/112 mmHg - - 83 16 94 % - 09/12/12 1730 183/88 mmHg - - 78 16 94 % - 09/12/12 1715 216/113 mmHg 97.5 F (36.4 C) - 75 16 93 % - 09/12/12 1700 169/86 mmHg - - 78 15 94 % - 09/12/12 1655 169/89 mmHg - - 74 15 92 % - 09/12/12 1650 164/91 mmHg - - 74 14 93 % - 09/12/12 1645 149/80 mmHg - - 74 14 92 % - 09/12/12 1640 163/87 mmHg - - 74 16 92 % - 09/12/12 1635 164/95 mmHg - - 74 14 93 % - 09/12/12 1630 159/84 mmHg - - 72 16 95 % - 09/12/12 1625 173/86 mmHg - - 74 18 95 % - 09/12/12 1623 149/87 mmHg - - - - - - 09/12/12 1620 183/100 mmHg - - 66 19 96 % - 09/12/12 1615 176/96 mmHg - - 64 18 97 % - 09/12/12 1610 187/95 mmHg - - 66 22 97 % - 09/12/12 1605 184/97 mmHg - - 64 13 98 % - 09/12/12 1600 181/85 mmHg - - 64 11 97 % - 09/12/12 1556 189/93 mmHg - - 62 18 97 % - 09/12/12 1551 187/93 mmHg - - 62 18 97 % - 09/12/12 1546 189/95 mmHg - - 61 18 96 % - 09/12/12 1545 180/92 mmHg 96.7 F (35.9 C) - 58 16 96 % - Constitutional: Alert, cooperative, no distress Respiratory: Respirations unlabored Cardiovascular: Regular rate, Abdomen: Psychiatric: Soft, JOSE serosanguinous Affect normal DATA CBC: Lab Results Component Value Date WBC 9.2 09/12/2012 RBC 4.83 09/12/2012 HGB 13.5 09/12/2012 HCT 41.4 09/12/2012 MCV 85.7 09/12/2012 MCH 27.8 09/12/2012 MCHC 32.5 09/12/2012 RDW 42.4 09/12/2012 PLT 258 09/12/2012 MPV 7.4 09/12/2012 DIFFTYPE AUTOMATED 09/12/2012 CMP: Lab Results Component Value Date NA 135 09/13/2012 K 4.1 09/13/2012 CL 100 09/13/2012 CO2 27 09/13/2012 ANIONGAP 12 09/13/2012 GLUF 208* 09/13/2012 BUN 18 09/13/2012 CREATININE 1.19 09/13/2012 BCR 15 09/13/2012 CA 9.9 09/13/2012 PROT 7.2 09/13/2012 ALB 4.0 09/13/2012 GLOB 3.2 09/13/2012 BILITOT 0.6 09/13/2012 ALP 69 09/13/2012 AST 30 09/13/2012 ALT 29 09/13/2012 EGFR >60 09/13/2012 Hepatic Function Panel: Lab Results Component Value Date PROT 7.2 09/13/2012 ALB 4.0 09/13/2012 BILITOT 0.6 09/13/2012 ALP 69 09/13/2012 AST 30 09/13/2012 ALT 29 09/13/2012 PROBLEM LIST Active Problems: Diabetes mellitus type II Atrial fibrillation HTN (hypertension) RUQ pain Cholelithiases WARD (obstructive sleep apnea) ASSESSMENT & PLAN POD 1 lap cholecystectomy Pain controlled. Poorly controlled hypertension. Okay for discharge once his BP is controlled. FU next Monday Jevon Key [address] [facility] [address] [place] [id number] teaching. Disposition: Stable Code Status: Full Code JEVON KEY DO 09/13/2012 onversion Transa ction, Provider Unknown - 09/12/2012 2:26 PM PDT Progress Notes by Doris Laureano RN at 09/12/121425 Author: Doris Laureano RN Service: (none) Author Type: Registered Nurse Filed: 09/12/121427 Date of Service: 09/12/121425 Status: Signed Furnace Maintenance: Doris Laureano RN (Registered Nurse) Dressing on arm and lt upper back changed with telfa and breathable tape; small amt bloody, thin yellowish drainage on old dressing; will report to rn; pt aware to make sure dressing is getting changed at [facility] Transaction, Provider Unknown - 09/11/2012 10:40 PM PDT Progress Notes by Pepe Xie RPH at 09/11/122239 Author: Pepe Xie RPH Service: (none) Author Type: Pharmacist Filed: 09/11/122239 Date of Service: 09/11/122239 Status: Signed Furnace Maintenance: Pepe Xie RPH (Pharmacist) Note ccl 82.6ml/min meds reviewed Pharmacy will follow [facility] [address] [facility] Transaction, Provider Unknown - 09/11/2012 10:38 PM PDT Progress Notes by Pepe Xie RPH at 09/11/122237 Author: Pepe Xie RPH Service: (none) Author Type: Pharmacist Filed: 09/11/122237 Date of Service: 09/11/122237 Status: Signed Furnace Maintenance: Pepe Xie RPH (Pharmacist) Note ccl 82.6ml/min meds reviewed Pharmacy will follow [facility] 2237 docume nted in this encounter H&P Notes Jevon Key DO - 09/12/2012 11:14 AM PDT Interval H&P Note by Jevon Key DO at 09/12/124 Author: Jevon Key DO Service: General Surgery Author Type: Physician Filed: 09/12/12 1115 Date of Service: 09/12/121113 Status: Signed Furnace Maintenance: Jevon Key DO (Physician) [facility] Service: General Surgery Pre-Operative History & Physical Interval Update He presented to the ER last night with intractable nausea, vomiting, and RUQ pain. He was admitted overnight for pain control. OR planned today rather than next Monday. JEVON KEY DO 09/12/2012 Source Note Author: Jevon Key DO Service: (none) Author Type: Physician Filed: 09/06/12 151 Date of Service: 09/06/121509 Status: Signed Furnace Maintenance: Jevon Key DO (Physician) Subjective: Patient ID: Norah Gr is a 56 y.o. male. HPI This is a very pleasant 56-year-old male office as an outpatient chief complaint of 3 weeks of right upper quadrant pain. He denies any associated nausea or vomiting. He states the pa in is in his right side and sometimes radiates to his right flank. The pain at this time is 1/10 but at its worst he rates at the 6-8/10. He said nothing makes the pain worse nothing m akes it better except for pain medication. Denies any sick contacts or recent travel. He cur rently resides in an assisted living facility. Past Medical History Diagnosis Date Diabetes mellitus type II Atrial fibrillation Hypertension Hyperlipidemia Anxiety Depression WARD (obstructive sleep apnea) 08/11/2012 Past Surgical History Procedure Date Unlisted procedure arthroscopy Knee surgery Leg surgery LLE Colonoscopy Current Outpatient Prescriptions on File Prior to Visit Medication Sig Dispense Refill ARIPiprazole (ABILIFY) 10 MG tablet Take 10 mg by mouth daily. atenolol (TENORMIN) 100 MG tablet Take 200 mg by mouth nightly. clopidogrel (PLAVIX) 75 MG tablet Take 75 mg by mouth daily. cyanocobalamin 1000 MCG tablet Take 100 mcg by mouth daily. diltiazem (DILACOR XR) 120 MG 24 hr capsule Take 240 mg by mouth daily. fenofibrate (TRIGLIDE) 160 MG tablet Take 160 mg by mouth daily. fluticasone-salmeterol (ADVAIR DISKUS) 250-50 MCG/DOSE AEPB Inhale 1 puff into the lung s 2 (two) times daily. 60 each 0 glipiZIDE (GLUCOTROL) 5 MG tablet Take 5 mg by mouth 2 (two) times daily before meals. HYDROcodone-acetaminophen (NORCO) 5-325 MG per tablet Take 1 tablet by mouth every 6 (s ix) hours as needed for Pain. 12 tablet 0 hydrocodone-acetaminophen (VICODIN) 5-500 MG per tablet Take 1 tablet by mouth every 6 (six) hours as needed. ipratropium-albuterol (COMBIVENT) 18-103 MCG/ACT inhaler Inhale 2 puffs into the lungs every 6 (six) hours as needed for Wheezing. 1 Inhaler 0 METFORMIN HCL PO Take 1,000 mg by mouth 2 (two) times daily. niacin (NIASPAN) 500 MG CR tablet Take 500 mg by mouth 2 (two) times daily. 2 tabs in a m, 1 tab in pm paroxetine (PAXIL) 40 MG tablet Take 40 mg by mouth every morning. pravastatin (PRAVACHOL) 20 MG tablet Take 20 mg by mouth nightly. ranitidine (ZANTAC) 150 MG tablet Take 1 tablet by mouth 2 (two) times daily. 60 table t 0 TAMSULOSIN HCL PO Take 0.4 mg by mouth. tiotropium (SPIRIVA) 18 MCG inhalation capsule Inhale 18 mcg into the lungs daily. triamterene-hydrochlorothiazide (MAXZIDE) 75-50 MG per tablet Take 1 tablet by mouth da evelia. Current Facility-Administered Medications on File Prior to Visit Medication Dose Route Frequency Provider Last Rate Last Dose DISCONTD: sodium chloride 0.9 % flush 10 mL 10 mL Intravenous Q8H Kirill Hardy MD 10 mL at 09/05/12 1129 Allergies Allergen Reactions Vitamin B12 Anaphylaxis BP 142/74 | Pulse 60 | Temp 98.3 F (36.8 C) (Oral) | Ht 1.803 m (5' 11") | Wt 108.863 k g (240 lb) | BMI 33.47 kg/m2 | SpO2 92% Review of Systems Constitutional: Negative. HENT: Negative. Eyes: Negative. Respiratory: Negative. Cardiovascular: Negative. Gastrointestinal: Positive for abdominal pain. Genitourinary: Negative. Musculoskeletal: Negative. Neurological: Negative. Hematological: Negative. Psychiatric/Behavioral: Negative. Objective: Physical Exam Constitutional: He is oriented to person, place, and time. Vital signs are normal. He appea rs well-developed and well-nourished. He is cooperative. Non-toxic appearance. He does not have a sickly appearance. He does not appear ill. No distress. HENT: Head: Normocephalic and atraumatic. Eyes: Conjunctivae normal, EOM and lids are normal. Right conjunctiva is not injected. Left conjunctiva is not injected. No scleral icterus. Neck: Trachea normal, normal range of motion, full passive range of motion without pain and phonation normal. Neck supple. No tracheal tenderness present. No edema present. No thyrome boone present. Cardiovascular: Normal rate. Pulmonary/Chest: Effort normal. No accessory muscle usage or stridor. No apnea, not tachypn eic and not bradypneic. No respiratory distress. Abdominal: Soft. Normal appearance and bowel sounds are normal. He exhibits no ascites and no pulsatile midline mass. There is no tenderness. There is no rigidity, no rebound, no guar ding and no CVA tenderness. Musculoskeletal: Normal range of motion. Lymphadenopathy: He has no cervical adenopathy. Neurological: He is alert and oriented to person, place, and time. He has normal strength. No cranial nerve deficit or sensory deficit. Skin: Skin is warm, dry and intact. No abrasion and no rash noted. Psychiatric: His behavior is normal. Judgment and thought content normal. His mood appears anxious. His affect is blunt. His speech is tangential. He is not actively hallucinating. He is attentive. Assessment and Plan: Norah presents to clinic with a chief complaint of RUQ abdominal tenderness. The pain waxes and wanes in intensity and duration. He had a RUQ ultrasound that revealed cholelithiasis. There is no overt evidence of cholecystitis, choledocholithiasis, or gall stone pancreatitis . He was explained the risks, benefits, and alternatives to laparoscopic, possible open, chol ecystectomy and informed consent has been obtained. I have personally reviewed his radiographic images, and concur with the radiologist interpr etation. I have reviewed his chart and pertinent laboratory values. unnage, Jevon De León DO - 09/06/2012 3:10 PM PDT H&P (View-Only) by Jevon Key DO at 09/06/121509 Author: Jevon Key DO Service: (none) Author Type: Physician Filed: 09/06/121510 Date of Service: 09/06/121509 Status: Signed Furnace Maintenance: Jevon Key DO (Physician) Subjective: Patient ID: Norah Gr is a 56 y.o. male. HPI This is a very pleasant 56-year-old male office as an outpatient chief complaint of 3 weeks of right upper quadrant pain. He denies any associated nausea or vomiting. He states the pa in is in his right side and sometimes radiates to his right flank. The pain at this time is 1/10 but at its worst he rates at the 6-8/10. He said nothing makes the pain worse nothing m akes it better except for pain medication. Denies any sick contacts or recent travel. He cur rently resides in an assisted living facility. Past Medical History Diagnosis Date Diabetes mellitus type II Atrial fibrillation Hypertension Hyperlipidemia Anxiety Depression WARD (obstructive sleep apnea) 08/11/2012 Past Surgical History Procedure Date Unlisted procedure arthroscopy Knee surgery Leg surgery LLE Colonoscopy Current Outpatient Prescriptions on File Prior to Visit Medication Sig Dispense Refill ARIPiprazole (ABILIFY) 10 MG tablet Take 10 mg by mouth daily. atenolol (TENORMIN) 100 MG tablet Take 200 mg by mouth nightly. clopidogrel (PLAVIX) 75 MG tablet Take 75 mg by mouth daily. cyanocobalamin 1000 MCG tablet Take 100 mcg by mouth daily. diltiazem (DILACOR XR) 120 MG 24 hr capsule Take 240 mg by mouth daily. fenofibrate (TRIGLIDE) 160 MG tablet Take 160 mg by mouth daily. fluticasone-salmeterol (ADVAIR DISKUS) 250-50 MCG/DOSE AEPB Inhale 1 puff into the lung s 2 (two) times daily. 60 each 0 glipiZIDE (GLUCOTROL) 5 MG tablet Take 5 mg by mouth 2 (two) times daily before meals. HYDROcodone-acetaminophen (NORCO) 5-325 MG per tablet Take 1 tablet by mouth every 6 (s ix) hours as needed for Pain. 12 tablet 0 hydrocodone-acetaminophen (VICODIN) 5-500 MG per tablet Take 1 tablet by mouth every 6 (six) hours as needed. ipratropium-albuterol (COMBIVENT) 18-103 MCG/ACT inhaler Inhale 2 puffs into the lungs every 6 (six) hours as needed for Wheezing. 1 Inhaler 0 METFORMIN HCL PO Take 1,000 mg by mouth 2 (two) times daily. niacin (NIASPAN) 500 MG CR tablet Take 500 mg by mouth 2 (two) times daily. 2 tabs in a m, 1 tab in pm paroxetine (PAXIL) 40 MG tablet Take 40 mg by mouth every morning. pravastatin (PRAVACHOL) 20 MG tablet Take 20 mg by mouth nightly. ranitidine (ZANTAC) 150 MG tablet Take 1 tablet by mouth 2 (two) times daily. 60 table t 0 TAMSULOSIN HCL PO Take 0.4 mg by mouth. tiotropium (SPIRIVA) 18 MCG inhalation capsule Inhale 18 mcg into the lungs daily. triamterene-hydrochlorothiazide (MAXZIDE) 75-50 MG per tablet Take 1 tablet by mouth da evelia. Current Facility-Administered Medications on File Prior to Visit Medication Dose Route Frequency Provider Last Rate Last Dose DISCONTD: sodium chloride 0.9 % flush 10 mL 10 mL Intravenous Q8H Kirill Hardy MD 10 mL at 09/05/12 1129 Allergies Allergen Reactions Vitamin B12 Anaphylaxis BP 142/74 | Pulse 60 | Temp 98.3 F (36.8 C) (Oral) | Ht 1.803 m (5' 11") | Wt 108.863 k g (240 lb) | BMI 33.47 kg/m2 | SpO2 92% Review of Systems Constitutional: Negative. HENT: Negative. Eyes: Negative. Respiratory: Negative. Cardiovascular: Negative. Gastrointestinal: Positive for abdominal pain. Genitourinary: Negative. Musculoskeletal: Negative. Neurological: Negative. Hematological: Negative. Psychiatric/Behavioral: Negative. Objective: Physical Exam Constitutional: He is oriented to person, place, and time. Vital signs are normal. He appea rs well-developed and well-nourished. He is cooperative. Non-toxic appearance. He does not have a sickly appearance. He does not appear ill. No distress. HENT: Head: Normocephalic and atraumatic. Eyes: Conjunctivae normal, EOM and lids are normal. Right conjunctiva is not injected. Left conjunctiva is not injected. No scleral icterus. Neck: Trachea normal, normal range of motion, full passive range of motion without pain and phonation normal. Neck supple. No tracheal tenderness present. No edema present. No thyrome boone present. Cardiovascular: Normal rate. Pulmonary/Chest: Effort normal. No accessory muscle usage or stridor. No apnea, not tachypn eic and not bradypneic. No respiratory distress. Abdominal: Soft. Normal appearance and bowel sounds are normal. He exhibits no ascites and no pulsatile midline mass. There is no tenderness. There is no rigidity, no rebound, no guar ding and no CVA tenderness. Musculoskeletal: Normal range of motion. Lymphadenopathy: He has no cervical adenopathy. Neurological: He is alert and oriented to person, place, and time. He has normal strength. No cranial nerve deficit or sensory deficit. Skin: Skin is warm, dry and intact. No abrasion and no rash noted. Psychiatric: His behavior is normal. Judgment and thought content normal. His mood appears anxious. His affect is blunt. His speech is tangential. He is not actively hallucinating. He is attentive. Assessment and Plan: Norah presents to clinic with a chief complaint of RUQ abdominal tenderness. The pain waxes and wanes in intensity and duration. He had a RUQ ultrasound that revealed cholelithiasis. There is no overt evidence of cholecystitis, choledocholithiasis, or gall stone pancreatitis . He was explained the risks, benefits, and alternatives to laparoscopic, possible open, chol ecystectomy and informed consent has been obtained. I have personally reviewed his radiographic images, and concur with the radiologist interpr etation. I have reviewed his chart and pertinent laboratory values. documented in thi s encounter Consult Notes Jorge Oviedo MD - 09/12/2012 8:45 PM PDTFormatting of this note might be diffe rent from the original. Consult* by Jorge Oviedo MD at 09/12/122044 Author: Jorge Oviedo MD Service: (none) Author Type: Physician Filed: 09/13/121833 Date of Service: 09/12/122044 Status: Signed Furnace Maintenance: Jorge Oviedo MD (Physician) Related Notes: Original Note by Jorge Oviedo MD (Physician) filed at 09/12/122113 [facility] Service: Hospitalist Initial Consult Note Date of Admission: 09/11/2012 Reason for Consultation: Difficult to control hypertension Requesting Physician: Dr Key, General Surgery History Obtained From: patient CHIEF COMPLAINT: Abdominal pain HISTORY OF PRESENT ILLNESS The patient is a 56 y.o. male with significant past medical history of DM, afib, hypertens ion, hyperlipidemia, depression who presents with Abdominal pain The patient is a 55-year-old male with significant past medical history of diabetes mellitu s, hypertension, hyperlipidemia, atrial fibrillation, not on Coumadin therapy, who was seen by our general surgeon, Dr. Key, for right upper quadrant pain without associated nausea or vomiting. This pain was crampy in quality and radiated to his flank area, 1 to 10, but c an increase to 8 out of 10 intensity, with no specific trigger or element that increased his discomfort that improved with pain medications and who came to the emergency department whe re he had an ultrasound that revealed cholelithiasis and that is why he was admitted today u nder Dr. Key for cholecystectomy. Apparently, the surgery was without complications and currently, the patient is able to tolerate p.o. but his blood pressure has been running in t he 200/100 range, the reason why consultation to the hospitalist was made. The patient curre ntly denies any chest pain or shortness of breath. The patient does refer some abdominal dis comfort in the surgical area and in the epigastric area. Besides that, he denies any headach es. He is awake, alert and oriented and able to respond to all my questions even though the patient does have a mental disability for which he lives in assisted living facility. He shoemaker s refer previous episodes of severe hypertension. The last time was 6 months ago. He is not sure if that was related to his medications not being well titrated but refers that in the l ast few weeks, his blood pressure was running fairly okay. The patient refers that he does n ot know his medications, but per chart review, the patient was supposed to be taking atenolo l 200 mg at night and diltiazem 120 mg per day accompanied with metformin, Maxzide, Plavix, and MDIs. REVIEW OF SYSTEMS Review of Systems Constitutional: Negative for fever, chills, diaphoresis and fatigue. HENT: Negative for neck pain and neck stiffness. Respiratory: Negative for apnea, cough, choking, shortness of breath and wheezing. Cardiovascular: Negative for chest pain, palpitations and leg swelling. Gastrointestinal: Positive for nausea, abdominal pain and abdominal distention. Negative fo r vomiting, diarrhea and constipation. Genitourinary: Negative for difficulty urinating. Musculoskeletal: Negative for arthralgias. Skin: Negative for color change. Neurological: Negative for dizziness, tremors, seizures, syncope, weakness, numbness and he adaches. Psychiatric/Behavioral: Negative for confusion and agitation. Past Medical History Diagnosis Date Diabetes mellitus type II Atrial fibrillation Hypertension Hyperlipidemia Anxiety Depression WARD (obstructive sleep apnea) 08/11/2012 Past Surgical History Procedure Date Unlisted procedure arthroscopy Knee surgery Leg surgery LLE Colonoscopy Allergies Allergen Reactions Vitamin B12 Anaphylaxis Prescriptions prior to admission Medication Sig Dispense Refill ARIPiprazole (ABILIFY) 10 MG tablet Take 10 mg by mouth daily. atenolol (TENORMIN) 100 MG tablet Take 200 mg by mouth nightly. clopidogrel (PLAVIX) 75 MG tablet Take 75 mg by mouth daily. cyanocobalamin 1000 MCG tablet Take 100 mcg by mouth daily. diltiazem (DILACOR XR) 120 MG 24 hr capsule Take 240 mg by mouth daily. fenofibrate (TRIGLIDE) 160 MG tablet Take 160 mg by mouth daily. fluticasone-salmeterol (ADVAIR DISKUS) 250-50 MCG/DOSE AEPB Inhale 1 puff into the lung s 2 (two) times daily. 60 each 0 glipiZIDE (GLUCOTROL) 5 MG tablet Take 5 mg by mouth 2 (two) times daily before meals. HYDROcodone-acetaminophen (NORCO) 5-325 MG per tablet Take 1 tablet by mouth every 6 (s ix) hours as needed for Pain. 12 tablet 0 hydrocodone-acetaminophen (VICODIN) 5-500 MG per tablet Take 1 tablet by mouth every 6 (six) hours as needed. ipratropium-albuterol (COMBIVENT) 18-103 MCG/ACT inhaler Inhale 2 puffs into the lungs every 6 (six) hours as needed for Wheezing. 1 Inhaler 0 METFORMIN HCL PO Take 1,000 mg by mouth 2 (two) times daily. niacin (NIASPAN) 500 MG CR tablet Take 500 mg by mouth 2 (two) times daily. 2 tabs in a m, 1 tab in pm paroxetine (PAXIL) 40 MG tablet Take 40 mg by mouth every morning. pravastatin (PRAVACHOL) 20 MG tablet Take 20 mg by mouth nightly. ranitidine (ZANTAC) 150 MG tablet Take 1 tablet by mouth 2 (two) times daily. 60 table t 0 TAMSULOSIN HCL PO Take 0.4 mg by mouth. tiotropium (SPIRIVA) 18 MCG inhalation capsule Inhale 18 mcg into the lungs daily. triamterene-hydrochlorothiazide (MAXZIDE) 75-50 MG per tablet Take 1 tablet by mouth da evelia. Scheduled Medications ARIPiprazole 10 mg Oral Daily atenolol 200 mg Oral Nightly cefOXitin (MEFOXIN) IVPB 2 g Intravenous Q6H cefOXitin 2 g Intravenous Fluid Dynamicist to OR clopidogrel 75 mg Oral Daily fenofibrate 160 mg Oral Daily fentaNYL fluticasone-salmeterol 1 puff Inhalation 2 times daily glipiZIDE 5 mg Oral BID AC heparin (porcine) 5,000 Units Subcutaneous Q8H insulin regular 2 Units Subcutaneous TID AC metoprolol 5 mg Intravenous Once metoprolol 5 mg Intravenous Once midazolam niacin 500 mg Oral BID paroxetine 40 mg Oral QAM pravastatin 20 mg Oral Nightly ranitidine 150 mg Oral BID tiotropium 18 mcg Inhalation Daily triamterene-hydrochlorothiazide 1 tablet Oral Daily DISCONTD: ARIPiprazole 10 mg Oral Daily DISCONTD: atenolol 100 mg Oral Daily DISCONTD: pravastatin 20 mg Oral Nightly Continuous Infusions sodium chloride 110 mL/hr at 09/12/12 1847 sodium chloride PRN Medications acetaminophen, acetaminophen, acetaminophen, acetaminophen, hydrALAZINE, HYDROmorphone, HYD ROmorphone, HYDROmorphone, HYDROmorphone, HYDROmorphone, ipratropium-albuterol, ondansetron, ondansetron, ondansetron, ondansetron, oxyCODONE-acetaminophen, oxyCODONE-acetaminophen, po lyethylene glycol, polyethylene glycol, zolpidem, DISCONTD: bupivacaine-EPINEPHrine PF, DISC ONTD: fentaNYL, DISCONTD: fentaNYL, DISCONTD: HYDROmorphone, DISCONTD: HYDROmorphone DISCONTD: labetalol, DISCONTD: meperidine, DISCONTD: metoclopramide, DISCONTD: naloxone, DI SCONTD: ondansetron Family History Problem Relation Age of Onset Heart disease Father Heart disease Sister Diabetes type II Sister History Social History Marital Status: Single Spouse Name: N/A Number of Children: 1 Years of Education: N/A Occupational History Not on file. Social History Main Topics Smoking status: Never Smoker Smokeless tobacco: Never Used Alcohol Use: Yes occasional Drug Use: No Sexually Active: Not Currently Other Topics Concern Not on file Social History Narrative Lives in longterm, IADL, full code PHYSICAL EXAM Vital Signs: BP 198/110 | Pulse 90 | Temp 99.4 F (37.4 C) (Oral) | Resp 16 | Ht 1.803 m (5' 11") | W t 109 kg (240 lb 4.8 oz) | BMI 33.52 kg/m2 | SpO2 98% Temp: [96.6 F (35.9 C)-99.4 F (37.4 C)] 99.4 F (37.4 C) (09/12 1948) BP: (140-216)/(72-115) 198/110 mmHg (09/12 1948) Heart Rate: [57-94] 90 (09/12 1948) Resp: [11-22] 16 (09/12 1948) SpO2: [91 %-99 %] 98 % (09/12 1948) Height: [180.3 cm (5' 11")] 180.3 cm (5' 11") (09/11 2222) Weight: [109 kg (240 lb 4.8 oz)] 109 kg (240 lb 4.8 oz) (09/11 2222) BMI (Calculated): [33.6] 33.6 (09/11 2222) FiO2 : [45 %-84 %] 83 % (09/12 1546) Physical Exam Constitutional: He is oriented to person, place, and time. He appears well-developed. HENT: Head: Normocephalic and atraumatic. Nose: Nose normal. Eyes: EOM are normal. Pupils are equal, round, and reactive to light. Neck: Neck supple. No JVD present. Cardiovascular: Normal rate, regular rhythm and normal heart sounds. Exam reveals no pina p and no friction rub. No murmur heard. Pulmonary/Chest: Effort normal. No respiratory distress. He has no wheezes. He has no rales . He exhibits no tenderness. Abdominal: Soft. He exhibits distension. Bowel sounds are decreased. There is tenderness in the right upper quadrant and epigastric area. Neurological: He is alert and oriented to person, place, and time. No cranial nerve deficit . Coordination normal. DATA CBC: Lab Results Component Value Date WBC 9.2 09/12/2012 RBC 4.83 09/12/2012 HGB 13.5 09/12/2012 HCT 41.4 09/12/2012 MCV 85.7 09/12/2012 MCH 27.8 09/12/2012 MCHC 32.5 09/12/2012 RDW 42.4 09/12/2012 PLT 258 09/12/2012 MPV 7.4 09/12/2012 DIFFTYPE AUTOMATED 09/12/2012 CMP: Lab Results Component Value Date NA 138 09/12/2012 K 3.8 09/12/2012 CL 103 09/12/2012 CO2 31 09/12/2012 ANIONGAP 8 09/12/2012 GLUF 132* 09/12/2012 BUN 14 09/12/2012 CREATININE 1.04 09/12/2012 BCR 13 09/12/2012 CA 9.3 09/12/2012 PROT 7.1 09/12/2012 ALB 4.0 09/12/2012 GLOB 3.1 09/12/2012 BILITOT 0.4 09/12/2012 ALP 74 09/12/2012 AST 20 09/12/2012 ALT 19 09/12/2012 EGFR >60 09/12/2012 Hepatic Function Panel: Lab Results Component Value Date PROT 7.1 09/12/2012 ALB 4.0 09/12/2012 BILITOT 0.4 09/12/2012 ALP 74 09/12/2012 AST 20 09/12/2012 ALT 19 09/12/2012 CT Abdomen & Pelvis with contrast [[id number]] Status: Final result Study Result NORAH GR CT ABDOMEN PELVIS W CONTRAST CT abdomen and pelvis with contrast HISTORY: 56 years. Male. Abdominal pain TECHNIQUE: 5-mm axial images were acquired through the abdomen and pelvis. Oral Contrast: Readi-Cat IV contrast: 100 mL IsoVue 300 COMPARISON: None. FINDINGS: The visualized portions of the heart and lung bases are normal. The distal esophagus is normal. The liver, spleen, pancreas, adrenal glands are normal in appearance. Small layering stone s are noted within the gallbladder. No gallbladder wall thickening, mass or pericholecystic fluid. The aorta and vena cava are normal in caliber throughout their visualized course including the iliac and femoral vessels. No free fluid or free air is present. No adenopathy is seen in the abdomen or pelvis. The luminal GI tract has a normal pattern without dilatation or air-fluid levels to sugges t obstruction or ileus. No evidence of bowel wall thickening or mass. The portions of the appendix visualized are normal in caliber. There is no significant diverticular disease. The kidneys show no stones or hydronephrosis. There is the exophytic some cyst = 2.6 cm ar ising from the lateral aspect lower pole right kidney. No ureteral dilatation. Urinary susan dder is normal. Prostate and seminal vesicles are normal in size. The muscles are symmetric. No focal atrophy or soft tissue mass is seen. No hernias are i dentified. Mild lumbar spondylosis but no lytic or blastic lesions. IMPRESSION: 1. Cholelithiasis but no CT findings to suggest cholecystitis. 2. Right renal cyst. 3. Otherwise unremarkable CT scan of the abdomen and pelvis with no imaging findings to ac count for the patient's symptomatology. This report has been prepared with a voice recognition system. The possibility of "sound alike" powder blender and pourer errors, addition and/or deletions may occur. If there is any question about this report please contact the originating radiologist. Abdomen, Gallbladder [[id number]] Status: Final result Study Result CLINICAL HISTORY: 56-year-old male with pain TECHNIQUE: Limited abdominal ultrasound, focused on the gallbladder, biliary system and adj acent structures. Prior examination for comparison: 11 August 2012. FINDINGS: Pancreas and partially obscured by gas, not diagnostic there What is seen of the liver demonstrates Increased echotexture. No fibrosis, ascites or focal lesion. Gallbladder some dense sludge and on image 22 a few discrete small gallstones. Wall 2.1 mm. The localizing pin or fluid described. Common bile duct measures 4.1 mm. No dilatation of the intra-or extrahepatic biliary ductal system. IMPRESSION : Some dense dependent sludge, occasional small discrete stones -- could be asso ciated with biliary dysfunction or intermittent symptoms. [facility] OPERATIVE NOTE SURGERY DEPT Name: Norah Gr Age: 56 y.o. Todays Date: 09/12/2012 Time: 3:18 PM Procedure: Laparoscopic Cholecystectomy Diagnoses: Pre-Op: Symptomatic Cholelithiasis Post-Op: Same as above PROBLEM LIST Active Problems: Diabetes mellitus type II Atrial fibrillation HTN (hypertension) RUQ pain Cholelithiases WARD (obstructive sleep apnea) ASSESSMENT & PLAN A -RUQ pain due to cholelithiasis s/p laparoscopic CCY -Hypertension - without signs of end organ damage at physical exam Hypertensive urgency due to recent NPO for surgery (?Bblocker withdrawal), pain or worsenin g underlying primary hypertension -DM -WARD -Afib hx - on rate control / not anticoagulated / CHADS2 score of 2 P -continue pain management -restart PO medications since patient currently is tolerating PO -Labetalol IV PRN +/- hydralazine IV - no need for rapid BP control since no current signs of end organ damage (will check kidney function, urine studies, EKG) -start ACEI -novolog sliding scale low coverage and increase as needed -CPAP therapy -Telemetry for now -AM hospitalist to discussed patient once clear by surgery risks and benefits of anticoagul ation DVT / Gi prophylaxis per primary team Code Status: Full Code Primary Care Physician: EDIN K WESTHUSING Thank you for allowing me to participate in the care of this patient. I will continue to follow with you. Jorge Oviedo MD 09/12/2012 documented i n this encounter ED Notes Conversion Transaction, Provider Unknown - 09/11/2012 10:54 PM PDTFormatting of this note m ight be different from the original. ED Notes by Carlos Morfin RN at 09/11/122253 Author: Carlos Morfin RN Service: (none) Author Type: Registered Nurse Filed: 09/11/122253 Date of Service: 09/11/122253 Status: Signed Furnace Maintenance: Carlos Morfin RN (Registered Nurse) Pt eating soup at bedside. Carlos Morfin RN 09/11/122253 olvia Ramírez MD - 09/11/2012 7:34 PM PDTFormatting of this note might be different from the o riginal. ED Provider Notes by Xander Ramírez MD at 09/11/121933 Author: Xander Ramírez MD Service: (none) Author Type: Physician Filed: 09/11/122249 Date of Service: 09/11/121933 Status: Addendum Furnace Maintenance: Xander Ramírez MD (Physician) Related Notes: Original Note by Xander Ramírez MD (Physician) filed at 09/11/12 6440 [facility] Department of Emergency Medicine History of Present Illness Patient Identification Norah Gr is a 56 y.o. male. Patient information was obtained from patient and spouse/partner. History/Exam limitations: none. Patient presented to the Emergency Department by: Car Chief Complaint Chief Complaint Patient presents with Abdominal Pain The patient complains of abdominal pain. Onset of symptoms was 2 weeks ago and suddenly wor sened today. The symptoms are described to be of moderate severity. The patient also compla ins of nausea, SOB, vomiting (the last 6 hours), and some diarrhea. Pt denies fever or chill s. The patient describes the quality and location of the symptoms as the following: Pt repor ts episodes of pain lasting 3-4 hours in the past two weeks. Today is the first time it has persisted, and the first time he has had problems with vomiting. Pt has surgery planned wit bran Key (surgeon) for of this month for gallstones. Past Medical History Diagnosis Date Diabetes mellitus type II Atrial fibrillation Hypertension Hyperlipidemia Anxiety Depression WARD (obstructive sleep apnea) 08/11/2012 Past Surgical History Procedure Date Unlisted procedure arthroscopy Knee surgery Leg surgery LLE Colonoscopy Prior to Admission medications Medication Sig Start Date End Date Taking? Authorizing Provider ARIPiprazole (ABILIFY) 10 MG tablet Take 10 mg by mouth daily. Historical Provider atenolol (TENORMIN) 100 MG tablet Take 200 mg by mouth nightly. Historical Provider clopidogrel (PLAVIX) 75 MG tablet Take 75 mg by mouth daily. Historical Provider cyanocobalamin 1000 MCG tablet Take 100 mcg by mouth daily. Historical Provider diltiazem (DILACOR XR) 120 MG 24 hr capsule Take 240 mg by mouth daily. Historical Provi carlos fenofibrate (TRIGLIDE) 160 MG tablet Take 160 mg by mouth daily. Historical Provider fluticasone-salmeterol (ADVAIR DISKUS) 250-50 MCG/DOSE AEPB Inhale 1 puff into the lungs 2 (two) times daily. 08/14/12 09/13/12 Josefa Ramon MD glipiZIDE (GLUCOTROL) 5 MG tablet Take 5 mg by mouth 2 (two) times daily before meals. Historical Provider HYDROcodone-acetaminophen (NORCO) 5-325 MG per tablet Take 1 tablet by mouth every 6 (six) hours as needed for Pain. 09/05/12 09/15/12 Kirill Hardy MD hydrocodone-acetaminophen (VICODIN) 5-500 MG per tablet Take 1 tablet by mouth every 6 (six ) hours as needed. Historical Provider ipratropium-albuterol (COMBIVENT) 18-103 MCG/ACT inhaler Inhale 2 puffs into the lungs ever y 6 (six) hours as needed for Wheezing. 08/14/12 08/14/13 Josefa Ramon MD METFORMIN HCL PO Take 1,000 mg by mouth 2 (two) times daily. Historical Provider niacin (NIASPAN) 500 MG CR tablet Take 500 mg by mouth 2 (two) times daily. 2 tabs in am, 1 tab in pm Historical Provider paroxetine (PAXIL) 40 MG tablet Take 40 mg by mouth every morning. Historical Provider pravastatin (PRAVACHOL) 20 MG tablet Take 20 mg by mouth nightly. Historical Provider ranitidine (ZANTAC) 150 MG tablet Take 1 tablet by mouth 2 (two) times daily. 12/13/11 Yaakov Bridges, TAMSULOSIN HCL PO Take 0.4 mg by mouth. Historical Provider tiotropium (SPIRIVA) 18 MCG inhalation capsule Inhale 18 mcg into the lungs daily. Histo rical Provider triamterene-hydrochlorothiazide (MAXZIDE) 75-50 MG per tablet Take 1 tablet by mouth daily. Historical Provider Allergies Allergen Reactions Vitamin B12 Anaphylaxis History Social History Marital Status: Single Spouse Name: N/A Number of Children: 1 Years of Education: N/A Occupational History Not on file. Social History Main Topics Smoking status: Never Smoker Smokeless tobacco: Never Used Alcohol Use: Yes occasional Drug Use: No Sexually Active: Not Currently Other Topics Concern Not on file Social History Narrative Lives in longterm, IADL, full code Family History Problem Relation Age of Onset Heart disease Father Heart disease Sister Diabetes type II Sister Review of Systems Constitutional: No fever, chills ENT: No blindness, no rhinitis, no sore throat Cardiovascular: No chest pain Respiratory: No cough Positive for SOB Gastrointestinal: No black or bloody stools Positive for abd pain, n/v/d. Genitourinary: No dysuria, hematuria Musculoskeletal: No acute physical injury. Skin: No laceration or rash Neuro and psych: No head injury, seizure, headache Endocrine/Heme/Lymph: No easy bruising or bleeding. Physical Exam BP 197/88 | Pulse 75 | Temp 99.8 F (37.7 C) (Oral) | Resp 22 | Ht 1.803 m (5' 11") | Wt 109.317 kg (241 lb) | BMI 33.61 kg/m2 | SpO2 98% Vital Sign interpretation: Hypertensive, Tachypneac, otherwise normal Pulse Oximetry interpretation: Normal General: Alert, in no apparent distress Eyes: Non-icteric ENT: Normal external exam Neck: Supple Cardiovascular: Warm and well perfused, RRR Respiratory: No respiratory distress, breathe sounds clear and equal bilat Abdomen: Soft, right sided tenderness, worse in RUQ. No guarding or rebound, distended Extremities: BARNARD, no calf tenderness, no peripheral edema Back: Normal ROM Skin: Color normal Warm and dry No rash Neuro: Alert, no AMS No gross motor/sensory deficits Medical Decision Making and Emergency Department Course ED Department Course Pt with known cholelithiasis has had problems for two weeks, and was set for outpatient lisy ted. Today he has been vomiting all day with worsening pain. Labs normal, will assess with ultrasound. Labs do not suggest cholecystitis, and ultrasound shows sludge but not acute rupesh. Pt continues to feel pain and nausea. Discussed with Dr Key who says he will admit the patient and see him in the morning to try to squeeze him into the surgical schedule. Pt ok with plan. Admitted. I wrote for night meds and transition orders. Did consider other causes of symptoms - pancreatitis, viral illness, cardiac, penumonia, sb o, IBD, but none are nearly as likely for the known biliary sludge he has been dealing with for weeks. Records Reviewed Old medical records. Nursing notes. Old ED records reviewed (Using the electronic record system of [facility] Laboratory Evaluation Results Procedure Component Value Ref Range Date/Time POC clinitek 10 [[id number]] (Abnormal) Collected:09/11/122141 Order Status:Completed Updated:09/11/122146 Color, UA YELLOW Clarity, UA CLEAR Glucose, UA NEGATIVE NEGATIVE mg/dL Bilirubin, UA NEGATIVE NEGATIVE Ketones, UA NEGATIVE NEGATIVE mg/dL Spec Grav, UA 1.020 1.001 - 1.035 Blood, UA NEGATIVE NEGATIVE pH, UA 5.5 4.6 - 8.0 Protein, UA TRACE (A) NEGATIVE mg/dL Urobilinogen, UA 0.2 <1.1 mg/dL Nitrite, UA NEGATIVE NEGATIVE WBC, UA NEGATIVE NEGATIVE Complete Metabolic Panel [[id number]] (Abnormal) Collected:09/11/12 1857 Order Status:Completed Updated:09/11/122000 Specimen Information:Blood SODIUM 144 (H) 135 - 143 mmol/L POTASSIUM 3.5 3.5 - 4.9 mmol/L CHLORIDE 101 99 - 109 mmol/L CO2 28 23 - 32 mmol/L ANION GAP AGAP 19 5 - 20 mmol/L GLUCOSE 120 (H) 65 - 99 mg/dL BUN 15 8 - 25 mg/dL CREATININE 1.24 0.70 - 1.30 mg/dL BUN/CREAT 12 CALCIUM 9.6 8.5 - 10.2 mg/dL TOTAL PROTEIN 7.9 6.3 - 8.2 g/dL Albumin 3.8 3.6 - 5.0 g/dL GLOBULIN 4.1 1.3 - 4.9 g/dL A/G 0.9 (L) 1.0 - 2.4 TBIL 0.3 0.1 - 1.5 mg/dL ALK PHOS 107 35 - 115 U/L AST 28 10 - 45 U/L ALT 29 10 - 65 U/L EGFR >60 >60 mL/min/1.73m2 Lipase [[id number]] Collected:09/11/121856 Order Status:Completed Updated:09/11/122000 Specimen Information:Blood LIPASE 125 73 - 393 U/L CBC w Auto Diff [[id number]] (Abnormal) Collected:09/11/121856 Order Status:Completed Updated:09/11/121943 Specimen Information:Blood WBC 10.6 3.8 - 11.0 K/uL RBC 5.10 4.20 - 5.70 M/uL HGB 14.4 13.2 - 17.0 g/dL HCT 43.3 39.0 - 50.0 % MCV 84.9 80.0 - 100.0 fl MCH 28.1 27.0 - 34.0 pg MCHC 33.2 32.0 - 35.5 g/dL RDW SD 42.0 37 - 53 fl PLT 295 150 - 400 K/uL MPV 7.5 fl DIFF TYPE AUTOMATED NEUTROPHILS 53.6 40 - 75 % LYMPHOCYTES 31.2 15 - 48 % MONOCYTES 11.0 0 - 12 % EOSINOPHILS 3.7 0 - 7 % BASOPHILS 0.5 0 - 2 % NEUTROPHILS ABS 5.7 1.9 - 7.4 K/uL LYMPHOCYTES ABS 3.3 1.0 - 3.9 K/uL MONOCYTES ABS 1.2 (H) 0 - 0.8 K/uL EOSINOPHILS ABS 0.4 0 - 0.5 K/uL BASOPHILS ABS 0.1 0 - 0.1 K/uL I personally reviewed the lab results and they have been posted to the chart. Pertinent po sitive and negative findings have been addressed appropriately. Radiology and EKG Evaluation Imaging Results US Abdomen, Gallbladder (Final result) Result time:09/11/122207 Final result by Rad Results In Richard (09/11/12 22:08:22) Narrative: CLINICAL HISTORY: 56-year-old male with pain TECHNIQUE: Limited abdominal ultrasound, focused on the gallbladder, biliary system and adj acent structures. Prior examination for comparison: 11 August 2012. FINDINGS: Pancreas and partially obscured by gas, not diagnostic there What is seen of the liver demonstrates Increased echotexture. No fibrosis, ascites or focal lesion. Gallbladder some dense sludge and on image 22 a few discrete small gallstones. Wall 2.1 mm. The localizing pin or fluid described. Common bile duct measures 4.1 mm. No dilatation of the intra-or extrahepatic biliary ductal system. IMPRESSION : Some dense dependent sludge, occasional small discrete stones -- could be asso ciated with biliary dysfunction or intermittent symptoms. Diagnoses Final diagnoses Symptomatic cholelithiasis Biliary colic Vomiting Disposition: ED Disposition Admit/Observation Requested Unit:: Surgical Bed request special needs: None Diagnosis?: cholelithiasis, biliary colic, vomiting Follow-up Information None Discharge Medications: New Prescriptions No new medications Additional Documentation Procedures Attending Note: Documentation assistance provided by Vel Swanson and Mart Ames (Scribe). Information recorded by the scribe has been reviewed and validated by me. Troy laughlin with its contents. MD Xander Pineda MD 09/11/12 4797 Xander Ramírez MD 09/11/12 5570 onversion Transacti on, Provider Unknown - 09/11/2012 7:05 PM PDTFormatting of this note might be different fro m the original. ED Notes by Elmo Patton RN at 09/11/121904 Author: Elmo Patton RN Service: (none) Author Type: Registered Nurse Filed: 09/11/121905 Date of Service: 09/11/121904 Status: Signed Furnace Maintenance: Elmo Patton RN (Registered Nurse) Pt has appt with [facility] scheduled for to remove GB. Has not had any hydrocodone toda y, has had N+V+D Elmo Patton RN 09/11/12 1906 docume nted in this encounter Miscellaneous Notes Op Note - Jevon Key DO - 09/12/2012 3:18 PM PDT Op Note by Jevon Key DO at 09/12/12 1518 Author: Jevon Key DO Service: General Surgery Author Type: Physician Filed: 09/12/12 1520 Date of Service: 09/12/12 1518 Status: Signed Furnace Maintenance: Jevon Key DO (Physician) [facility] OPERATIVE NOTE SURGERY DEPT Name: Norah Gr Age: 56 y.o. Todays Date: 09/12/2012 Time: 3:18 PM Procedure: Laparoscopic Cholecystectomy Diagnoses: Pre-Op: Symptomatic Cholelithiasis Post-Op: Same as above Surgeon: Jevon Key DO Assist: SHADIA Lindquist Anesthesia: General Endotracheal Anesthesia Specimens: Gallbladder to pathology Indications: See H & P After the risks, benefits and alternatives of laparoscopic and possible open cholecystectom y were explained to the patient, informed consent was obtained. Findings: Cholelithiasis Estimated Blood Loss: 5ml Complications: NONE Procedure Note: The patient was brought to the operative suite, placed in supine position and prepped and d raped in sterile fashion. After adequate general endotracheal anesthesia had been administer ed by the department of anesthesia, a supraumbilical Veress needle was placed in the periton eal cavity and pneumoperitoneum established to 15 mmHg using CO2 gas. A 12mm Optiview was used to enter the peritoneal cavity under direct visualization with the laparoscope via the umbilicus. A subxiphoid and 2 right upper quadrant 5 mm ports were plac ed in the standard regular fashion. The patient's gallbladder was contracted and inflamed. T he gall bladder was thin walled, and tore open with any manipulation. It was also very intra hepatic. The omentum was tethered to the infundibulum and fundus. This was freed up using bl unt dissection. The fundus of the gallbladder was grasped, pulled towards the patient's righ t shoulder, and the infundibulum was grasped and pulled out in a lateral fashion to tent the cystic duct out in a perpendicular fashion from the common hepatic and common bile ducts. T he infundibulum-cystic duct junction was identified, skeletonized, and the cystic duct was c lipped x3 using endoscopic clips and cut using endoscopic scissors. The cystic artery was li kewise identified, clipped x3 and cut using endoscopic scissors. The gallbladder was removed from the gallbladder fossa using electrocautery. . The gallblad carlos was then placed into an Endo Catch bag and removed via the umbilical port site. The gall bladder fossa was again inspected. All bleeding was controlled using electrocautery. There was no more oozing seen in the case . A 19F ivy drain was placed into the GB fossa and secured via the RUQ port site with a 2. 0 nylon stitch. There was no bleeding in the case, and the umbilical fascia was closed using 0 Vicryl suture in interrupted fashion x1 using a Jose Manuel-Stevie device. Pneumoperitoneum was released. All ports were removed. The skin sites were closed using 4- 0 Monocryl, and Dermabond was placed on the skin. The patient was extubated and moved to [facility] under the direction of Anesthesia. Disposition: Pt moved to PACU/recovery room. Condition: Stable and satisfactory condition. Sponge and Needle Count: Correct JEVON KEY DO documented in thi s encounter Plan of Treatment +--------+---------+ + + + | Date | Type | Specialty | Care Team | Description | +--------+---------+ + + + | 09/10/ | Office | Geriatric Medicine | Holgado, Mireya A, | | | 2019 | Visit | | FLOOR SPECIALIST [address] | | | | | | [address] [place], | | | | | | [place] [address] | | | | | | [phone] | | | | | | | | +--------+---------+ + + + | 09/29/ | Office | Urology | Mireya Pack, | | | 2019 | Visit | | FLOOR SPECIALIST [address] | | | | | | [address] [facility] [place], | | | | | | [place] [address] | | | | | | [phone] | | | | | | | | | | | | Toy Wild, DO | | | | | | [address] | | | | | | [place] [address] | | | | | | [phone] | | | | | | | | +--------+---------+ + + + documented as of this encounter Procedures + +--------+ + + + | Procedure Name | Priori | Date/Time | Associated Diagnosis | Comments | | | ty | | | | + +--------+ + + + | ECG 12 LEAD | Routin | 09/12/2012 | | Results for this | | | e | 9:31 PM | | procedure are in the | | | | PDT | | results section. | + +--------+ + + + | US ABDOMEN LIMITED | Routin | 09/11/2012 | | Results for this | | | e | 9:46 PM | | procedure are in the | | | | PDT | | results section. | + +--------+ + + + documented in this encounter Results ECG 12 lead (09/12/2012 9:31 PM PDT) + + + + + + | Component | Value | Ref Range | Performed | Pathologist | | | | | At | Signature | + + + + + + | DIAGNOSIS: | Normal sinus | | EXTERNAL | | | | rhythmPossible Left | | LAB | | | | atrial | | | | | | enlargementBorderline | | | | | | ECGWhen compared with | | | | | | ECG of 13-AUG-2012 | | | | | | 10:43,Sinus rhythm has | | | | | | replaced Atrial | | | | | | fibrillationConfirmed by | | | | | | ESTER PARKER ([id number]) on | | | | | | 09/14/2012 12:28:21 AM | | | | + + + + + + + + | Specimen | + + | | + + + + + | Narrative | Performed At | + + + | Historically converted procedure from [facility] environment | EXTERNAL LAB | + + + + +---------+ + + | Performing | Address | City/State/Zipcode | Phone Number | | Organization | | | | + +---------+ + + | EXTERNAL LAB | | | | + +---------+ + + US Abdomen Limited (09/11/2012 9:46 PM PDT) + + | Specimen | + + | | + + + + + | Narrative | Performed At | + + + | CLINICAL HISTORY: 56-year-old male with pain TECHNIQUE: Limited | | | abdominal ultrasound, focused on the gallbladder, biliary system and | | | adjacent structures. Prior examination for comparison: 11 August | | | 2012. FINDINGS: Pancreas and partially obscured by gas, not | | | diagnostic there What is seen of the liver demonstrates Increased | | | echotexture. No fibrosis, ascites or focal lesion. Gallbladder | | | some dense sludge and on image 22 a few discrete small gallstones. | | | Wall 2.1 mm. The localizing pin or fluid described. Common bile duct | | | measures 4.1 mm. No dilatation of the intra-or extrahepatic biliary | | | ductal system. IMPRESSION : Some dense dependent sludge, | | | occasional small discrete stones -- could be associated with biliary | | | dysfunction or intermittent symptoms. | | + + + + + | Procedure Note | + + | Richard, Rad Conversion - 09/28/2018 3:24 PM PDT CLINICAL HISTORY: 56-year-old male with | | pain TECHNIQUE: Limited abdominal ultrasound, focused on the gallbladder, biliary | | system and adjacent structures. Prior examination for comparison: 11 August 2012. FINDINGS: | | Pancreas and partially obscured by gas, not diagnostic there What is seen of the liver | | demonstrates Increased echotexture. No fibrosis, ascites or focal lesion. Gallbladder | | some dense sludge and on image 22 a few discrete small gallstones. Wall 2.1 mm. The | | localizing pin or fluid described.Common bile duct measures 4.1 mm. No dilatation of the | | intra-or extrahepatic biliary ductal system. IMPRESSION : Some dense dependent | | sludge, occasional small discrete stones -- could be associated with biliary dysfunction | | or intermittent symptoms. | | 10:08 PM | | | |Gallbladder some dense sludge and on image 22 a few discrete small gallstones. Wall 2.1 mm. The localizing pin or fluid described. | |Common bile duct measures 4.1 mm. No dilatation of the intra-or extrahepatic biliary ductal system. | | | | | | | |IMPRESSION : Some dense dependent sludge, occasional small discrete stones -- could be asso ciated with biliary dysfunction or intermittent symptoms. | | | | | + + documented in this encounter Visit Diagnoses + + | Diagnosis | + + | Symptomatic cholelithiasis Calculus of gallbladder without mention of cholecystitis | | or obstruction | + + | Biliary colic Calculus of gallbladder without mention of cholecystitis or obstruction | + + | Vomiting Vomiting alone | + + | Labile hypertension Unspecified essential hypertension | + + | Accelerated hypertension Essential hypertension, malignant | + + | Atrial fibrillation (HCC) Atrial fibrillation | + + | Diabetes mellitus type II Type II or unspecified type diabetes mellitus without | | mention of complication, not stated as uncontrolled | + + | RUQ pain Abdominal pain, right upper quadrant | + + documented in this encounter
--- OUTSIDE RECORDS SUMMARY | ~2019-09-09 | XMS | Encounter Summary ---
Demographics + + + | Address | [address] [facility] [address] | | | [place] [address] | + + + | Home Phone | | + + + | Preferred Language | Unknown | + + + | Marital Status | | + + + | Hindu Affiliation | 1027 | + + + | Race | Unknown | + + + | Ethnic Group | Unknown | + + + Author + + + | Author | [facility] | | | and [place] | + + + | Organization | [facility] | | | and [place] | + + + | Address | Unknown | + + + | Phone | Unavailable | + + + Support + + + + + | Name | Relationship | Address | Phone | + + + + + | Sammi Kohler | ECON | [place] [address] | | + + + + + Care Team Providers + +------+ + | Care Dance Entertainer Name | Role | Phone | + +------+ + PCP | Unavailable | + +------+ + Encounter Details +--------+ + + + + | Date | Type | Department | Care Team | Description | +--------+ + + + + | 01/29/ | Emergency | [facility] | Kirill Hardy, | Suicidal ideations | | 2012 | | [facility]ICAL [facility]ENTER | MD [address] | | | | | EMERGENCY CENTER | [place] [address] | | | | | [address] | [phone] | | | | | [place], [place] | | | | | | [address] | | | | | | [phone] | | | +--------+ + + + [...] ED Notes Conversion Transaction, Provider Unknown - 01/30/2012 6:10 AM PSTFormatting of this note m ight be different from the original. ED Notes by Rik Moise RN at 01/30/12609 Author: Rik Moise RN Service: (none) Author Type: Registered Nurse Filed: 01/30/12610 Date of Service: 01/30/12609 Status: Signed Test Center Administrator: Rik Moise RN (Registered Nurse) Patient waiting for Crisis to complete eval, and for MD dispo. Rik Moise RN 01/30/12610 onver ivana Transaction, Provider Unknown - 01/30/2012 6:02 AM PST ED Notes by Rik Moise RN at 01/30/12601 Author: Rik Moise RN Service: (none) Author Type: Registered Nurse Filed: 01/30/12602 Date of Service: 01/30/12601 Status: Signed Test Center Administrator: Rik Moise RN (Registered Nurse) [place] and drink given to patient. Rik Moise RN 01/30/12602 onver ivana Transaction, Provider Unknown - 01/30/2012 6:01 AM PST ED Notes by Rik Moise RN at 01/30/12600 Author: Rik Moise RN Service: (none) Author Type: Registered Nurse Filed: 01/30/12601 Date of Service: 01/30/12600 Status: Signed Test Center Administrator: Rik Moise RN (Registered Nurse) When patient is ready for discharge, at patient request, "Sammi" can be called at [phone]. Rik Moise RN 01/30/12601 onver ivana Transaction, Provider Unknown - 01/30/2012 5:46 AM PST ED Notes by Rik Moise RN at 01/30/12545 Author: Rik Moise RN Service: (none) Author Type: Registered Nurse Filed: 01/30/12546 Date of Service: 01/30/12545 Status: Signed Test Center Administrator: Rik Moise RN (Registered Nurse) Crisis [facility] at bedside to eval patient. Rik Moise RN 01/30/12546 onver ivana Transaction, Provider Unknown - 01/30/2012 5:37 AM PST ED Notes by Jun Allen RN at 01/30/12536 Author: Jun Allen RN Service: (none) Author Type: Registered Nurse Filed: 01/30/12536 Date of Service: 01/30/12536 Status: Signed Test Center Administrator: Jun Allen RN (Registered Nurse) CRU at Jun Allen RN 01/30/12536 onver ivana Transaction, Provider Unknown - 01/30/2012 5:31 AM PST ED Notes by Rik Moise RN at 01/30/12530 Author: Rik Moise RN Service: (none) Author Type: Registered Nurse Filed: 01/30/12531 Date of Service: 01/30/12530 Status: Signed Test Center Administrator: Rik Moise RN (Registered Nurse) Patient reminded of need for urine sample. Rik Moise RN 01/30/12531 onver ivana Transaction, Provider Unknown - 01/30/2012 4:22 AM PST ED Notes by Rik Moise RN at 01/30/12421 Author: Rik Moise RN Service: (none) Author Type: Registered Nurse Filed: 01/30/12422 Date of Service: 12/24/12 0422 Status: Signed Test Center Administrator: Rik Moise RN (Registered Nurse) Patient given michelle crackers and milk at request. Patient denies ability to void. Patien t resting quietly, with no complaints. Suicide precautions maintained. Rik Moise RN 01/30/12422 onver ivana Transaction, Provider Unknown - 01/30/2012 3:39 AM PST ED Notes by Rik Moise RN at 01/30/12338 Author: Rik Moise RN Service: (none) Author Type: Registered Nurse Filed: 01/30/12338 Date of Service: 01/30/12338 Status: Signed Test Center Administrator: Rik Moise RN (Registered Nurse) Report to Hermes Moise RN 01/30/12338 onver ivana Transaction, Provider Unknown - 01/30/2012 3:29 AM PST ED Notes by Rik Moise RN at 01/30/12328 Author: Rik Moise RN Service: (none) Author Type: Registered Nurse Filed: 01/30/12329 Date of Service: 01/30/12328 Status: Signed Test Center Administrator: Rik Moise RN (Registered Nurse) Patient denies any ETOH use tonight. Patient denies taking any extra medications. Patient given water to drink and informed of need for urine sample. Rik Moise RN 01/30/12329 onver ivana Transaction, Provider Unknown - 01/30/2012 3:27 AM PST ED Notes by Rik Moise RN at 01/30/12326 Author: Rik Mosie RN Service: (none) Author Type: Registered Nurse Filed: 01/30/12327 Date of Service: 01/30/12326 Status: Signed Test Center Administrator: Rik Moise RN (Registered Nurse) Pt reports he recently loss his , and his dog. Patient lives alone, and feels suisidal , with no thought out plan. Patient calm and cooperative at this time. Rik Moise RN 01/30/12327 onver ivana Transaction, Provider Unknown - 01/30/2012 3:25 AM PST ED Notes by Rik Moise RN at 01/30/12324 Author: Rik Moise RN Service: (none) Author Type: Registered Nurse Filed: 01/30/12324 Date of Service: 01/30/12324 Status: Signed Test Center Administrator: Rik Moise RN (Registered Nurse) 2 patient identifiers checked. Bed in low position. Call light in reach. Patient gowned. Patient in view of nurse's station. Rik Moise RN 01/30/12324 Kirill Teixeira MD - 01/30/2012 3:24 AM PST ED Provider Notes by Kirill Hardy MD at 01/30/12323 Author: Kirill Hardy MD Service: (none) Author Type: Physician Filed: 02/01/122231 Date of Service: 01/30/12323 Status: Signed Test Center Administrator: Kirill Hardy MD (Physician) 3:24 AM [facility] Department of Emergency Medicine History of Present Illness Patient Identification Kevyn Guzman is a 56 y.o. male. Patient information was obtained from patient. History/Exam limitations: none. Patient presented to the Emergency Department [place] [address] Room:03 Chief Complaint Chief Complaint Patient presents with Psychiatric Evaluation suisidal thoughts after taking meds yesterday, after being off meds for several days. Patient presents to ED for evaluation of suicidal ideations. The pt reports he did not take his medication for three days because "I forgot." The pt is unsure of his medication, he d enies running out of medication. Onset of symptoms was yesterday, with a constant course si nce that time. Severity is described as moderate to severe. Symptoms are exacerbated by noth ing and improved by nothing. Patient also complains of "dry" throat. Patient denies fever, c hills, nausea, vomiting, decreased vision, hearing loss, difficulty swallowing, difficulty b reathing, headache, chest pain, abdominal pain, weakness or rash. The pt reports he called f or help tonight, because he felt suicidal. The pt reports he took his usual "night pills" t onight. He denies medication overdose and alcohol use tonight. The pt reports he had suicidal ideations in 1989, with an intermittent course since that ti hi. The pt has a history of depression, anxiety, DM type II, HTN, and hyperlipidemia. Primary Care Doctor: JERRELL GUTIÉRREZ DO Past Medical History Diagnosis Date Diabetes mellitus type II Atrial fibrillation Hypertension Hyperlipidemia Anxiety Depression Past Surgical History Procedure Date Unlisted procedure arthroscopy Knee surgery Leg surgery LLE Colonoscopy Prior to Admission medications Medication Sig Start Date End Date Taking? Authorizing Provider aspirin 81 MG EC tablet Take 1 tablet by mouth daily. 03/30/11 03/29/12 Nemesio Morley MD atenolol (TENORMIN) 100 MG tablet Take 100 mg by mouth 2 (two) times daily. Historical Provider ATENOLOL PO Take 100 mg by mouth. Historical Provider cyanocobalamin 1000 MCG tablet Take 100 mcg by mouth daily. Historical Provider diltiazem (DILACOR XR) 120 MG 24 hr capsule Take 120 mg by mouth daily. Historical Pro vider fenofibrate (TRIGLIDE) 160 MG tablet Take 160 mg by mouth daily. Historical Provider glipiZIDE (GLUCOTROL) 5 MG tablet Take 5 mg by mouth 2 (two) times daily before meals. Historical Provider METFORMIN HCL PO Take 1,000 mg by mouth 2 (two) times daily. Historical Provider niacin (NIASPAN) 500 MG CR tablet Take 500 mg by mouth 2 (two) times daily. 2 tabs in am, 1 tab in pm Historical Provider paroxetine (PAXIL) 40 MG tablet Take 40 mg by mouth every morning. Historical Provider ranitidine (ZANTAC) 150 MG tablet Take 1 tablet by mouth 2 (two) times daily. 12/13/11 Yaakov Bridges DO TAMSULOSIN HCL PO Take 0.4 mg by mouth. Historical Provider triamterene-hydrochlorothiazide (MAXZIDE) 75-50 MG per tablet Take 1 tablet by mouth daily. Historical Provider ziprasidone (GEODON) 40 MG capsule Take 40 mg by mouth 2 (two) times daily with meals. Historical Provider Allergies Allergen Reactions Vitamin B12 Anaphylaxis History Social History Marital Status: Single Spouse Name: N/A Number of Children: N/A Years of Education: N/A Occupational History Not on file. Social History Main Topics Smoking status: Never Smoker Smokeless tobacco: Never Used Alcohol Use: Yes occasional Drug Use: No Sexually Active: Other Topics Concern Not on file Social History Narrative No narrative on file Family History Problem Relation Age of Onset Heart disease Father Heart disease Sister Diabetes type II Sister Review of Systems REVIEW OF SYSTEMS No fever, chills, nausea or vomiting. No decreased vision, hearing loss, difficult swallowing, difficulty breathing. No headache, chest pain, abdominal pain, weakness or rash. No difficulty with urination or bowel movement. Positive for suicidal ideations, "dry" throat All systems otherwise negative, except as recorded above and as recorded in the HPI. Physical Exam BP 163/91 | Pulse 80 | Temp(Src) 97.5 F (36.4 C) (Oral) | Resp 22 | Ht 1.803 m (5' 11") | Wt 103.42 kg (228 lb) | BMI 31.80 kg/m2 | SpO2 96% INTERPRETATION OF VITALS other than pulse oximetry Hypertensive, tachypneic, otherwise vitals normal Pulse Oximetry interpretation: Normal PHYSICAL EXAM Appearance: Alert. Anxious. Head: Normal external exam Eyes: Eyes normal inspection. ENT: Normal external ENT inspection. Neck: Normal inspection. CVS: Normal heart rate and rhythm. Heart sounds normal. Pulse normal. Respiratory: No respiratory distress. Breath sounds normal. No rales or rhonchi. Abdomen: Soft and nontender. No rebound or guarding. Back: Moves without difficulty. Skin: Skin warm. Extremities: No calf tenderness. No lower extremity edema. Neuro: Oriented. Moves all extremities. Suicidal and anxious. Medical Decision Making and Emergency Department Course ED Medical decision making: Patient presents to ED with complaints of suicidal ideations an d acknowledges that he needs help, he has agreed to be safe while he is here. The pt report s he did not take his usual medication for three days, he took his medication as prescribed tonight. On exam the patient is anxious and suicidal. Will order CMP, CBC, rapid drug screen , UA, acetaminophen level, EtOH level, salicylate level, to clear pt medically for Crisis Re sponse. Pt is stable at this time. Suicidal precautions in place. ED Department Course: 4:15 AM. Reviewed lab work. Acetaminophen and Salicylate levels low. Hypokalemic (3.4). hyperglycemic (159). Renal insufficiency (159). WBC elevated (13.3). EtOH negative. 4:50 AM. Discussed pt case with Crisis Response worker, who will see the pt. 6:02 AM. Pt eating sandwich. Waiting for results of rapid drug screen. Crisis Response w xuan has spoken with pt. 6:44 AM. UDS negative. Crisis response reports pt is stable for discharge. Records Reviewed Reviewed nursing triage notes. Medical records. Pt has prior ED visits for unrelated complaints. Laboratory Evaluation Labs Reviewed CBC W/AUTO DIFF (REFLEX TO MANUAL) - Abnormal; Notable for the following: WBC 13.3 (*) Testing performed at [facility];[address] [place] [address] EOSINOPHILS 7.3 (*) LYMPHOCYTES ABS 4.2 (*) MONOCYTES ABS 0.9 (*) EOSINOPHILS ABS 1.0 (*) All other components within normal limits COMPREHENSIVE METABOLIC PANEL - Abnormal; Notable for the following: POTASSIUM 3.4 (*) Testing performed at [facility];[address] [place] [address] GLUCOSE 159 (*) Testing performed at [facility];[address] [place] [address]29 CREATININE 1.46 (*) Testing performed at [facility];[address] [place] [address]140 A/G 0.8 (*) Testing performed at [facility];[address] [place] [address] 62589 EGFR 53 (*) All other components within normal limits ACETAMINOPHEN LEVEL - Abnormal; Notable for the following: ACETAMINOPHEN <2.0 (*) Testing performed at [facility];[address] [place] [address] All other components within normal limits SALICYLATE LEVEL - Abnormal; Notable for the following: SALICYLATE 2.4 (*) Testing performed at [facility];[address] [place] [address] All other components within normal limits RAPID DRUG SCREEN, URINE ETHANOL POC CLINITEK 10 I have reviewed lab results from the emergency department workup and abnormal results have been posted to the chart. Pertinent positive and negative findings have been addressed appr opriately. Radiology and EKG Evaluation Imaging Results None ED Diagnosis Final diagnosis Suicidal ideations Disposition: ED Disposition Discharge Condition at discharge: Stable Follow-up Information Follow up With Details Comments Contact Info Jerrell Gutiérrez DO Make an appointment in 4 days [address] [facility] [address] [facility] Call [address] [facility] [address] [facility] EMERGENCY DEPARTMENT If symptoms worsen [address] [facility] [address] Discharge Medications: New Prescriptions No new medications Additional Documentation Procedures Attending Note: Documentation assistance provided by AMIRA BANDA (Scribe). Information recorded by the scribe has been reviewed and validated by me. Troy laughlin with its contents. MD Kirill Heard MD 02/01/12 223 documente d in this encounter Plan of Treatment +--------+---------+ + + + | Date | Type | Specialty | Care Team | Description | +--------+---------+ + + + | 09/10/ | Office | Geriatric Medicine | Mireya Pack, | | | 2019 | Visit | | MACHINE III [employer]EM[employer]ER [address] | | | | | | [address] [place], | | | | | | [place] [address] | | | | | | [phone] | | | | | | | | +--------+---------+ + + + | 09/29/ | Office | Urology | Mireya Pack, | | | 2019 | Visit | | MACHINE III [address]EM[address] | | | | | | [address] [place], | | | | | | [place] [address] | | | | | | [phone] | | | | | | | | | | | | Toy Wild, DO | | | | | | [address] | | | | | | [place] [address] | | | | | | [phone] | | | | | | | | +--------+---------+ + + + documented as of this encounter Visit Diagnoses + + | Diagnosis | + + | Suicidal ideations Suicidal ideation | + + documented in this encounter
--- OUTSIDE RECORDS SUMMARY | ~2019-09-09 | XMS | Encounter Summary ---
Demographics + + + | Address | [address] | | | [place] [address] | + + + | Home Phone | | + + + | Preferred Language | Unknown | + + + | Marital Status | | + + + | Islam Affiliation | 1027 | + + + | Race | Unknown | + + + | Ethnic Group | Unknown | + + + Author + + + | Author | [facility] | | | and [place] | + + + | Organization | [facility] | | | and [place] | + + + | Address | Unknown | + + + | Phone | Unavailable | + + + Support + + + + + | Name | Relationship | Address | Phone | + + + + + | Sammi Kohler | ECON | [place] [address] | | + + + + + Care Team Providers + +------+ + | Care Pulley Maintainer Name | Role | Phone | + +------+ + | Mireya Pack NP | PCP | | + +------+ + Reason for Visit + + + | Reason | Comments | + + + | Heart Palpitations | states started at 1200, hx of afib | + + + Auth/Cert +--------+--------+ + + + + | Status | Reason | Specialty | Diagnoses / | Referred By | Referred To | | | | | Procedures | Contact | Contact | +--------+--------+ + + + + | | | | | | | +--------+--------+ + + + + Encounter Details +--------+ + + + + | Date | Type | Department | Care Team | Description | +--------+ + + + + | 07/22/ | Hospital | [facility] | [place], | Aspiration pneumonia | | 2020 - | Encounter | [facility] | [address] | of right lung, | | | | [address] | [place] [address] | unspecified | | 07/25/ | | [address] | [phone] | aspiration pneumonia | | 2020 | | [place], [place] | | type, unspecified | | | | [phone] | Tj Handley, DO [address] | part of lung (HCC) | | | | [phone] | [address] | (Primary Dx); | | | | | [place] [address] | Paroxysmal atrial | | | | | [phone] | fibrillation (HCC); | | | | | | Generalized weakness | | | | | Luigi Brooks MD | | | | | | [address] | | | | | | [place] [address] | | | | | | [phone] | | | | | | | [...] + + + | Blood Pressure | 171/78 | 07/26/2019 7:04 AM | | | | | PDT | | + + + + + | Pulse | 63 | 07/26/2019 7:04 AM | | | | | PDT | | + + + + + | Temperature | 36.9 C (98.4 F) | 07/26/2019 7:04 AM | | | | | PDT | | + + + + + | Respiratory Rate | 20 | 07/26/2019 7:04 AM | | | | | PDT | | + + + + + | Oxygen Saturation | 95% | 07/26/2019 7:04 AM | | | | | PDT | | + + + + + | Inhaled Oxygen | - | - | | | Concentration | | | | + + + + + | Weight | 97 kg (213 lb 13.5 | 07/26/2019 4:00 AM | | | | oz) | PDT | | + + + + + | Height | 180.3 cm (5' 11") | 07/23/2019 11:55 PM | | | | | PDT | | + + + + + | Body Mass Index | 29.83 | 07/23/2019 11:55 PM | | | | | PDT [...] documented as of this encounter Discharge Summaries Luigi Brooks MD - 07/26/2019 10:[address] [facility] Service: Hospitalist Discharge Summary Date of Admission: 07/23/2019 Date of Discharge: 07/26/2019 Discharge Provider: Luigi Brooks MD Discharge Diagnoses: Principal Problem: Pneumonia Active Problems: Diabetes mellitus, type 2 HTN (hypertension) Paroxysmal atrial fibrillation Hyperlipidemia WARD (obstructive sleep apnea) Hypertension Chronic anticoagulation BRIEF HISTORY OF PRESENTATION/HOSPITAL COURSE: Norah Gr is a 63 y.o. male with history of atrial fibrillation, type 2 diabetes, COPD, hypertension, obesity, some underlying history of developmental delay claims to live a lone and claims to be able to perform basic ADLs who presented with palpitations. Per HPI, patient had multiple ED visits for similar symptoms of palpitations. Also with vague abdomi nal pain and constipation. Patient claims to be compliant with his medications. In the jack rgency room, patient has leukocytosis. Chest x-ray showed possible right lobe pneumonia. C AT scan of the abdomen confirmed the right lobe pneumonia but no acute findings in the abdom en. There was also suspicion of stroke due to ataxia. CAT scan of the head was done which was unremarkable. There was concerns that the patient actually is not capable of taking car e of himself at home. Patient recalls that he was in an adult family home in the past and e xpresses that he does not want to go back to any kind of nursing facility. Denied fever or chills. No shortness of breath or cough. He mentioned occasional choking episodes with flu ids. Does not drink alcohol or uses drugs. Patient was admitted and started on Unasyn for possible aspiration pneumonia. He was also found to have atrial fibrillation. Per HPI, pat ient possibly noncompliant actually with his occasions. He was started back on Eliquis. I change his carvedilol to metoprolol XL for better rate control. He complained of constipati on. Stool softeners and laxatives ordered. Subsequently, abdominal pain resolved. For his pneumonia, based on location, aspiration was suspected. Speech therapy was co nsulted however recommended regular texture with thin liquids. We continued his Unasyn. On the day of discharge, the patient was given 5 more days of Augmentin. COVID-19 testing was negative. Blood cultures came back no growth after 2 days. Legionella antigen was negativ e. White count normalized. Patient did not require oxygen supplementation. For his diabetes, the patient was maintained on Humalog correctional scale and Levemir . Patient stated that he cannot afford metformin and he has not been taking it. This was r emoved from his medication list. At any rate, the patient sugar were actuating during this admission and A1c was 8.9. Advised lifestyle changes including diet and exercise. He was a lso advised to follow-up with primary care physician for further management of his sugars. Initially, the patient had atrial fibrillation with rapid ventricular response. He re quired 1 dose of diltiazem. For better rate control, carvedilol was switched to long-acting Toprol. He was discharged on 50 mg twice a day. He had right-sided chest pain during his hospital stay however EKG did not show any acute ischemia. Troponins all came back negative . Upon further examination, his chest pain is pleuritic in nature worse with deep breathing mainly on the right side which I suspected part of the ongoing pneumonia. His potassium wa s monitored and replaced accordingly. At 1 point, his Procardia was held because of lower blood pressure but not hypotensive . On the day of discharge, blood pressures were higher. Patient was advised to resume Proc ardia. He will also continue his lisinopril and as mentioned above, he is now on metoprolol XL 50 mg twice daily. Again, patient was advised to follow-up with primary care physician for further management of his blood pressures. Patient was seen by physical therapy and recommended home. Occupational therapy recomm ended SNF however patient was very adamant and refused to go to any kind of facility. Altho ugh he carries a diagnosis of developmental delay, during all my encounters, it seems that t he patient is very much decisional. Clinically, patient remained stable and improved. On t he day of discharge, he was in normal sinus rhythm. Medications Prior to Admission Medication Sig Dispense Refill apixaban (ELIQUIS) 5 mg tablet Take 1 tablet by mouth 2 times daily. (Patient not takin g: Reported on 07/03/2019) 60 tablet 4 ARIPiprazole (ABILIFY) 5 mg tablet Take 1 tablet by mouth Daily. (Patient not taking: R eported on 07/03/2019) 30 tablet 4 atorvaSTATin (LIPITOR) 40 mg tablet Take 1 tablet by mouth nightly. (Patient not taking : Reported on 07/03/2019) 30 tablet 11 Blood Glucose Monitoring Suppl (BLOOD GLUCOSE MONITOR SYSTEM) w/Device KIT Dispense bra nd per patient preference 1 each 0 Blood Pressure KIT Dispense as insurance allows to check Blood Pressure one time daily each day. 1 each 0 budesonide-formoterol (SYMBICORT) 160-4.5 mcg/puff inhaler Inhale 2 puffs into the lung s 2 times daily. (Patient not taking: Reported on 07/03/2019) 1 Inhaler 0 carvedilol (COREG) 12.5 mg tablet Take 1 tablet by mouth 2 times daily (with breakfast & dinner). finasteride (PROSCAR) 5 mg tablet Take 1 tablet by mouth Daily. (Patient not taking: Re ported on 07/03/2019) 30 tablet 4 Glucose Blood (BLOOD GLUCOSE TEST STRIPS) STRP For blood sugar testing 4 times daily 40 0 each 3 hydrALAZINE (APRESOLINE) 25 mg tablet Take 1 tablet by mouth Twice daily as needed (in addition to scheduled. for bp > 170/80). 60 tablet 11 HYDROcodone-acetaminophen (NORCO) 5-325 mg per tablet Take 1-2 tablets by mouth every 4 hours as needed. (Patient not taking: Reported on 07/03/2019) 90 tablet 0 insulin detemir (LEVEMIR FLEXTOUCH) 100 units/mL injection (pen) Inject 45 Units under the skin nightly. 12 mL 3 insulin lispro (HUMALOG KWIKPEN) 100 units/mL injection (pen) Inject 20 Units under the skin 3 times daily (with meals). 12 mL 3 Insulin Pen Needle (BD PEN NEEDLE KYAW U/F) 32G X 4 MM MISC For insulin administration 4 times daily 400 each 3 Lancets (ACCU-CHEK MULTICLIX) MISC 1 each by Other route 4 times daily. 400 each 3 lisinopril (PRINIVIL,ZESTRIL) 40 MG tablet Take 1 tablet by mouth Daily. (Patient not t aking: Reported on 07/03/2019) 30 tablet 11 meclizine (ANTIVERT) 25 mg tablet Take 1 tablet by mouth 3 times daily as needed. (Zaira ent not taking: Reported on 07/03/2019) 60 tablet 0 melatonin 3 mg TABS Take 1 tablet by mouth nightly as needed for Insomnia. (Patient not taking: Reported on 07/03/2019) 30 tablet 0 metFORMIN (GLUCOPHAGE) 500 mg tablet Take 1 tablet by mouth 2 times daily (with breakfa st & dinner). (Patient not taking: Reported on 07/03/2019) 60 tablet 4 NIFEdipine (ADALAT CC) 60 MG 24 hr tablet Take 1 tablet by mouth Daily. omeprazole (PRILOSEC) 20 mg capsule TAKE ONE CAPSULE BY MOUTH EVERY MORNING (BEFORE HEAVENLY AKFAST) (Patient not taking: Reported on 07/03/2019) 90 capsule 3 tamsulosin (FLOMAX) 0.4 mg CAPS Take 1 capsule by mouth 2 times daily. (Patient not dominique ing: Reported on 07/03/2019) 60 capsule 4 vancomycin 125 mg capsule Take 1 capsule by mouth 4 times daily. DISCHARGE EXAM Vital Signs: Vitals: 07/25/19 2341 07/26/19 0000 07/26/19 0400 07/26/19 0704 BP: 124/66 160/84 171/78 Pulse: 95 60 63 63 Resp: 22 20 20 Temp: 37 C (98.6 F) 36.7 C (98.1 F) 36.9 C (98.4 F) TempSrc: Oral Oral Oral SpO2: 95% 92% 95% Weight: 97 kg (213 lb 13.5 oz) Height: Physical Exam General appearance: alert, appears stated age and cooperative. Interactive, anxious lookin g, no distress. Interactive with mild dysarthria. Head: Normocephalic, without obvious abnormality, atraumatic Neck: no adenopathy, no carotid bruit, no JVD, supple, symmetrical, trachea midline and thy roid not enlarged, symmetric, no tenderness/mass/nodules Lungs: clear to auscultation bilaterally Heart: regular rate and rhythm, S1, S2 normal, no murmur, click, rub or gallop Abdomen: soft, non-tender; bowel sounds normal; no masses, no organomegaly Extremities: extremities normal, atraumatic, no cyanosis or edema Pulses: 2+ and symmetric Skin: Skin color, texture, turgor normal. No rashes or lesions Lymph nodes: Cervical, supraclavicular, and axillary nodes normal. Neuro: Mild dysarthria. Cranial nerves II through XII grossly intact. 5/5 motor all over. DATA, personally reviewed Recent Labs Lab 07/25/19 0549 07/24/19 0540 07/23/19 1749 WBC 10.34 11.09* 16.77* HGB 12.4* 12.2* 13.5 HCT 38.4* 37.0* 41.5 PLT 261 244 266 MONOPCT 11.00 8.70 8.20 Recent Labs Lab 07/26/19 0519 07/25/19 0549 07/24/19 0540 07/23/19 1749 NA 141 140 137 136 K 3.7 3.9 3.5 3.4* CL 109 108 105 100 CO2 26 26 26 27 BUN 15 14 13 19 CALCIUM 8.7 8.7 8.6 9.3 ALKPHOS -- -- -- 160* ALT -- -- -- 34 AST -- -- -- 23 Phosphorus: Lab Results Component Value Date PHOS 4.0 07/26/2019 Lab Results Component Value Date CREA 0.90 07/26/2019 LABCREA 1.12 09/21/2018 Recent Labs Lab 07/26/19 0519 07/25/19 0549 07/24/19 0540 MG 1.9 1.9 1.8 Recent Labs Lab 07/23/19 1749 INR 1.0 Radiology, personally reviewed Ct Head Wo Contrast Result Date: 07/23/2019 1. No acute intracranial process. 2. Nonobstructive pattern sinonasal disease. Signed by: Sukhjinder garvey M.D., Kishan Sign Date/Time: 07/23/2019 6:[address] Abdomen Pelvis W Contrast Result Date: 07/23/2019 1. New ground-glass opacities in right lower lobe. Differential diagnosis includes aspirat ion, viral pneumonia, and bacterial pneumonia. 2. No acute findings within the abdomen or pe lvis. Signed by: Irina Arrington Irene Sign Date/Time: 07/23/2019 6:44 PM Xr Chest Ap Portable Addendum Date: 07/23/2019 ADDENDUM BEGINS There is hazy opacification of the right lung base which corresponds to renee und-glass opacities on same day CT of the abdomen and pelvis. Signed by: Irina Arrington Irene Sign Date/Time: 07/23/2019 6:50 PM ADDENDUM ENDS Result Date: 07/23/2019 Negative chest. Signed by: Irina Arrington Irene Sign Date/Time: 07/23/2019 5:18 PM PLAN -discharge home. -follow medications as outlined below. -follow up with providers as indicated. Disposition: home Condition: Stable Code Status: Full Code No discharge procedures on file. Follow up: Mireya Pack, NORM [address] [address] Schedule an appointment as soon as possible for a visit in 1 week For a recheck Discharge Medications New Medications Details amoxicillin-clavulanate 875-125 mg per tablet Take 1 tablet by mouth 2 times daily for 5 days aka: AUGMENTIN docusate-senna 50-8.6 mg per tablet Take 2 tablets by mouth 2 times daily aka: SENOKOT-S metoprolol succinate 50 mg 24 hr tablet Take 1 tablet (50 mg total) by mouth 2 times daily aka: TOPROL-XL Unchanged Medications Details accu-chek multiclix Misc 1 each by Other route 4 times daily. apixaban 5 mg tablet Take 1 tablet by mouth 2 times daily. aka: ELIQUIS ARIPiprazole 5 mg tablet Take 1 tablet by mouth Daily. aka: ABILIFY atorvaSTATin 40 mg tablet Take 1 tablet by mouth nightly. aka: LIPITOR BD PEN NEEDLE KYAW U/F 32G X 4 MM Misc Generic drug: Insulin Pen Needle For insulin administration 4 times daily Blood Glucose Monitor System w/Device Kit Dispense brand per patient preference BLOOD GLUCOSE TEST STRIPS Strp For blood sugar testing 4 times daily Blood Pressure Kit Dispense as insurance allows to check Blood Pressure one time daily each day. budesonide-formoterol 160-4.5 mcg/puff inhaler Inhale 2 puffs into the lungs 2 times daily. aka: SYMBICORT finasteride 5 mg tablet Take 1 tablet by mouth Daily. aka: PROSCAR hydrALAZINE 25 mg tablet Take 1 tablet by mouth Twice daily as needed (in addition to scheduled. for bp > 170/80). aka: APRESOLINE insulin detemir 100 units/mL injection (pen) Inject 45 Units under the skin nightly. aka: LEVEMIR FLEXTOUCH insulin lispro 100 units/mL injection (pen) Inject 20 Units under the skin 3 times daily (with meals). aka: humaLOG KWIKPEN lisinopril 40 MG tablet Take 1 tablet by mouth Daily. aka: PRINIVIL,ZESTRIL melatonin 3 mg Tabs Take 1 tablet by mouth nightly as needed for Insomnia. NIFEdipine 60 MG 24 hr tablet Take 1 tablet by mouth Daily. aka: ADALAT CC Discontinued Medications carvedilol 12.5 mg tablet aka: COREG HYDROcodone-acetaminophen 5-325 mg per tablet aka: NORCO meclizine 25 mg tablet aka: ANTIVERT metFORMIN 500 mg tablet aka: GLUCOPHAGE omeprazole 20 mg capsule aka: priLOSEC tamsulosin 0.4 mg Caps aka: FLOMAX vancomycin 125 mg capsule Discharge took 46 minutes, to include final examination, discussion of admission, and prepa ration of prescriptions, instructions for on-going care, follow-up and documentation of disc harge summary. 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 Personal communication requested for any clarification. Luigi Brooks MD 07/26/2019 10:10 AM PDT documented in this enc ounter Discharge Instructions Instructions Gordon Avendano RN - 07/26/2019 Treating Pneumonia Pneumonia is an infection of one or both of the lungs. Pneumonia: Is often caused by either a virus, fungus, or bacteria Can be very serious, especially in babies, young children, and older adults. It s also serious for those with other long-term health problems or weakened immune systems. Is sometimes treated at home and sometimes in the hospital Antibiotic medicines Antibiotics may be prescribed for pneumonia caused by bacteria. They may be pills (oral med icines) or shots (injections). Or they may be given by IV (intravenously) into a vein. If yo u are taking pills at home: Fill your prescription and start taking your medicine as soon as you can. You will likely start to feel better in a day or 2, but don t stop taking the antibiot ic. Use a pill organizerto help you remember to take your medicine. Let yourhealthcare providerknow if you have side effects. Take your medicine exactly as directed on the label. Talk with your provider or pharmaci st if you have any questions. Antiviral medicines Antiviral medicine may be prescribed for pneumonia caused by a virus. For example, antivira l medicine may be prescribed for pneumonia caused by the flu virus. Antibiotics don't work a gainst viruses. If you are taking antiviral medicine at home: Fill your prescription and start taking your medicine as soon as you can. Talk with your provider or pharmacist about possible side effects. Take the medicine exactly as instructed. To relieve symptoms There are many medicines that can help relieve symptoms of pneumonia. Some are prescription and some are over the counter. Your healthcare provider may advise: Acetaminophen or ibuprofen to lower your fever and to reduce headache or other pain Cough medicine to loosen mucus or to reduce coughing Check with your healthcare provider or pharmacist before taking any ilng-sqq-xwbntle medici walter. Some zrsi-zwr-akuroiz medicines should not be used if you have certain health condition s. Special treatments If you are hospitalized for pneumonia, you may have other therapies, including: Inhaled medicines to help with breathing or chest congestion Supplemental oxygen to increase low oxygen levels Drink fluids and eat healthy You should eat healthy to help your body fight the infection. Drinking a lot of fluids help s to replace fluids lost from fever and to loosen mucus in your chest. Diet. Make healthy food choices, including fruits and vegetables, lean meats and other p roteins, 100% whole grain, and low-fat or no-fat dairy products. Fluids. Drink at least 6 to 8 tall glasses a day. Water and 100% fruit or vegetablejui ce are best. Get plenty of rest and sleep You may be more tired than normal for a while. It's important to get enough sleep at night. It s also important to rest during the day. Talk with your healthcare provider if coughin g or other symptoms are interfering with your sleep. Preventing the spread of germs The best thing you can do to prevent spreading germs is to wash your hands often. You shoul d: Scrub your hands with soap and warm water for 15 to 20 seconds. Clean in between your fingers, the backs of your hands, and around your nails. Dry your hands on a separate towel or use paper towels. You should also: Keep alcohol-based hand director of safety nearby. Make sure you also clean surfaces that you touch. Use a product that kills all types of germs. Stay away from others until you are feeling better. When to call your healthcare provider Call yourhealthcare providerif youhave any of these: Symptoms get worse or new symptoms develop Fever continues Shortness of breath with normal daily activities Side effects from your medicine Increased mucus or mucus that is darker in color Coughing gets worse Chest pain when coughing or breathing Call 911 Call 911if any of these occur: Lipsor fingersare bluish, purple, or garnica in color Trouble breathing or wheezing Shortness of breath that gets worse and doesn't improve with treatment Feeling faint or dizzy Loss of consciousness Trouble talking or swallowing Feeling of doom [employer] last reviewed this educational content on 01/06/201919995081-3005 [employer]. [address] [place] [address], [place] [address]. All righ ts reserved. This information is not intended as a substitute for professional medical care. Always follow your healthcare professional's instructions. Amoxicillin; Clavulanic Acid tablets Brand Name: Augmentin What is this medicine? AMOXICILLIN; CLAVULANIC ACID (a mox i AMAIRANI in; JACKELYN campbell ic id) is a penicillin antibi otic. It is used to treat certain kinds of bacterial infections. It will not work for colds, flu, or other viral infections. How should I use this medicine? Take this medicine by mouth with a full glass of water. Follow the directions on the prescr iption label. Take at the start of a meal. Do not crush or chew. If the tablet has a score l ine, you may cut it in half at the score line for easier swallowing. Take your medicine at r egular intervals. Do not take your medicine more often than directed. Take all of your medic ine as directed even if you think you are better. Do not skip doses or stop your medicine ea rly. Talk to your campus recruiting coordinator regarding the use of this medicine in children. Special care may be needed. What side effects may I notice from receiving this medicine? Side effects that you should report to your doctor or health rn intensive care unit as soon as p ossible: allergic reactions like skin rash, itching or hives, swelling of the face, lips, or tong ue breathing problems dark urine fever or chills, sore throat redness, blistering, peeling or loosening of the skin, including inside the mouth seizures trouble passing urine or change in the amount of urine unusual bleeding, bruising unusually weak or tired white patches or sores in the mouth or throat Side effects that usually do not require medical attention (report to your doctor or health rn intensive care unit if they continue or are bothersome): diarrhea dizziness headache nausea, vomiting stomach upset vaginal or anal irritation What may interact with this medicine? allopurinol 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 control pills methotrexate probenecid What if I miss a dose? If you miss a dose, take it as soon as you can. If it is almost time for your next dose, ta ke only that dose. Do not take double or extra doses. Where should I keep my medicine? Keep out of the reach of children. Store at room temperature below 25 degrees C (77 degrees F). Keep container tightly closed. Throw away any unused medicine after the expiration date. What should I tell my health care provider before I take this medicine? They need to know if you have any of these conditions: bowel disease, like colitis kidney disease liver disease mononucleosis an unusual or allergic reaction to amoxicillin, penicillin, cephalosporin, other antibio tics, clavulanic acid, other medicines, foods, dyes, or preservatives or trying to get breast-feeding What should I watch for while using this medicine? Tell your doctor or health rn intensive care unit if your symptoms do not improve. Do not treat diarrhea with over the counter products. Contact your doctor if you have diarr hea that lasts more than 2 days or if it is severe and watery. If you have diabetes, you may get a false-positive result for sugar in your urine. Check wi th your doctor or health rn intensive care unit. control pills may not work properly while you are taking this medicine. Talk to your doctor about using an extra method of control. NOTE:This sheet is a summary. It may not cover all possible information. If you have questi ons about this medicine, talk to your doctor, pharmacist, or health care provider. Copyright 2020 [employer] documented in this encounter Medications at Time of [...] + + +---------+ + + | | Take 1 tablet by | 10 | 0 | 07/26/19 | | | amoxicillin-clavulan | mouth 2 times daily | tablet | | 20 | 0 | | ate (AUGMENTIN) | for 5 days | | | | | | 875-125 mg per | | | | | | | tabletIndications: | | | | | | | Aspiration Pneumonia | | | | | | + [...] tablet by | 60 | 11 | 07/10/19 | | | (APRESOLINE) 25 mg | mouth Twice daily | tablet | | 20 | 0 | | tabletIndications: | as needed (in | | | | | | Essential | addition to | | | | | | hypertension | scheduled. for bp > | | | | | | | 170/80). | | | | | + + + +---------+ + + | melatonin 3 mg | Take 1 tablet by | 30 | 0 | 05/18/19 | | | TABS | mouth nightly as | tablet | | 20 | 0 | | | needed for Insomnia. | | | | | + + [...] documented as of this encounter Progress Notes Gordon Avendano RN - 07/26/2019 1:11 PM PDTAVS reviewed with patient and discharge teaching complete. Discharge medications reviewed and all questions answered. Local drug take back fl may given to patient in discharge folder. Verified with patient that they have all belonging s. Vital signs stable at time of discharge. Emphasized med changes and follow up. Escorted off unit by: Gordon PRADO Transportation home provided by: [employer]. Gordon Avendano RN Luigi Fontanez MD - 9:[address] [facility] Service: Hospitalist Progress Note Hospital Day: LOS: 2 days SUBJECTIVE Patient Summary: 63-year-old male with history of atrial fibrillation, type 2 diabetes , OPD, hypertension, obesity, some underlying history of developmental delay claims to live alone and claims to be able to perform basic ADLs who presented with palpitations. Per HPI, patient had multiple ED visits for similar symptoms of palpitations. Also with vague abdom inal pain and constipation. Patient claims to be compliant with his medications. In the em ergency room, patient has leukocytosis. Chest x-ray showed possible right lobe pneumonia. CAT scan of the abdomen confirmed the right lobe pneumonia but no acute findings in the abdo men. There was also suspicion of stroke due to ataxia. CAT scan of the head was done which was unremarkable. There was concerns that the patient actually is not capable of taking ca re of himself at home. Patient recalls that he was in an adult family home in the past and expresses that he does not want to go back to any kind of nursing facility. Denied fever or chills. No shortness of breath or cough. He mentioned occasional choking episodes with fl uids. Does not drink alcohol or uses drugs. Patient was admitted and started on Unasyn for possible aspiration pneumonia. He was also found to have atrial fibrillation. Per HPI, cleopatra prabhakar possibly noncompliant actually with his occasions. He was started back on Eliquis. I change his carvedilol to metoprolol XL for better rate control. He complained of constipat ion. Stool softeners and laxatives ordered. Events Overnight: 07/24/2019 seen and examined patient. Main complaint is constipation x4 days and vague abdo alyssa pain. No nausea or vomiting. Fevers or chills. No shortness of breath. 07/25/2019 seen and examined patient. Main complaint is right sided chest pain worse with d eep breathing. EKG and troponins unremarkable. Scheduled Medications ampicillin-sulbactam 3 g Intravenous Q6H apixaban 5 mg Oral BID ARIPiprazole 5 mg Oral Daily atorvaSTATin 40 mg Oral Nightly budesonide-formoterol 2 puff Inhalation BID docusate-senna 2 tablet Oral BID finasteride 5 mg Oral Daily insulin detemir 45 Units Subcutaneous Nightly insulin lispro 0-12 Units Subcutaneous 4x Daily WC and HS insulin lispro 5 Units Subcutaneous TID WC lisinopril 40 mg Oral Daily metoprolol succinate 50 mg Oral Daily pantoprazole 40 mg Oral QAM AC polyethylene glycol 17 g Oral Daily Continuous Infusions dextrose 10% PRN Medications acetaminophen, albuterol-ipratropium, Hypoglycemia Management AND POCT Glucose AND dextrose AND dextrose 10%, hydrALAZINE, labetalol, melatonin OBJECTIVE Vital Signs: Vitals: 07/25/19 0413 07/25/19 0415 07/25/19 0850 07/25/19 0855 BP: 119/80 121/67 Pulse: 93 91 108 Resp: Temp: 36.7 C (98.1 F) 36.7 C (98.1 F) 36.9 C (98.4 F) TempSrc: Oral Oral Oral SpO2: 95% 95% 95% Weight: 101.8 kg (224 lb 6.9 oz) Height: Physical Exam General appearance: alert, appears stated age and cooperative. Interactive, anxious lookin g, no distress. Interactive with mild dysarthria. Head: Normocephalic, without obvious abnormality, atraumatic Neck: no adenopathy, no carotid bruit, no JVD, supple, symmetrical, trachea midline and thy roid not enlarged, symmetric, no tenderness/mass/nodules Lungs: clear to auscultation bilaterally Heart: regular rate and rhythm, S1, S2 normal, no murmur, click, rub or gallop Abdomen: soft, non-tender; bowel sounds normal; no masses, no organomegaly Extremities: extremities normal, atraumatic, no cyanosis or edema Pulses: 2+ and symmetric Skin: Skin color, texture, turgor normal. No rashes or lesions Lymph nodes: Cervical, supraclavicular, and axillary nodes normal. Neuro: Mild dysarthria. Cranial nerves II through XII grossly intact. 5/5 motor all over. DATA, personally reviewed Recent Labs Lab 07/25/19 0549 07/24/19 0540 07/23/19 1749 WBC 10.34 11.09* 16.77* HGB 12.4* 12.2* 13.5 HCT 38.4* 37.0* 41.5 PLT 261 244 266 MONOPCT 11.00 8.70 8.20 Recent Labs Lab 07/25/19 0549 07/24/19 0540 07/23/19 1749 NA 140 137 136 K 3.9 3.5 3.4* CL 108 105 100 CO2 26 26 27 BUN 14 13 19 CALCIUM 8.7 8.6 9.3 ALKPHOS -- -- 160* ALT -- -- 34 AST -- -- 23 Recent Labs Lab 07/25/19 0549 07/24/19 0540 MG 1.9 1.8 Recent Labs Lab 07/23/19 1749 INR 1.0 Lab Results Component Value Date CREA 0.80 07/25/2019 LABCREA 1.12 09/21/2018 Radiology, personally reviewed Ct Head Wo Contrast Result Date: 07/23/2019 1. No acute intracranial process. 2. Nonobstructive pattern sinonasal disease. Signed by: Sukhjinder garvey M.D., Kishan Sign Date/Time: 07/23/2019 6:[address] Abdomen Pelvis W Contrast Result Date: 07/23/2019 1. New ground-glass opacities in right lower lobe. Differential diagnosis includes aspirat ion, viral pneumonia, and bacterial pneumonia. 2. No acute findings within the abdomen or pe lvis. Signed by: Irina Arrington Irene Sign Date/Time: 07/23/2019 6:44 PM Xr Chest Ap Portable Addendum Date: 07/23/2019 ADDENDUM BEGINS There is hazy opacification of the right lung base which corresponds to renee und-glass opacities on same day CT of the abdomen and pelvis. Signed by: Irina Arrington Irene Sign Date/Time: 07/23/2019 6:50 PM ADDENDUM ENDS Result Date: 07/23/2019 Negative chest. Signed by: Irina Arrington Irene Sign Date/Time: 07/23/2019 5:18 PM PROBLEM LIST Principal Problem: Pneumonia Active Problems: Diabetes mellitus, type 2 HTN (hypertension) Paroxysmal atrial fibrillation Hyperlipidemia WARD (obstructive sleep apnea) Hypertension Chronic anticoagulation ASSESSMENT & PLAN Pneumonia Based on location, right lower lobe, highly suspicious for aspiration. Speech therapy consulted. They recommended regular texture with thin liquids. Continue Unasyn. Plan to transition to Augmentin tomorrow. COVID-19 test negative. Blood cultures so far no growth. Legionella antigen negative. Awaiting respiratory film panel. Currently at room air with adequate oxygenation. White count normalized. Type 2 diabetes Continue Levemir. Continue Humalog correctional scale. Sugars are better controlled. Continue Humalog 5 units 3 times a day with meals. A1c pending. Paroxysmal atrial fibrillation Continue Eliquis for anticoagulation. Patient required 1 dose of diltiazem in the ED for RVR. Heart rate still in the 90s to 100. Increase Toprol-XL 50 mg to twice daily for better rate control. Will titrate depending on response. Monitor potassium and magnesium. Replace to keep levels at least 4 and at least 2 respecti vely. Echocardiogram 10/2018 reviewed and showed normal size left ventricle with moderate increase d left ventricular wall thickness, EF 65%. Normal left ventricular wall motion. Normal siz e right ventricle and right ventricular systolic function. Hypertension Continue metoprolol and lisinopril. Procardia was stopped. Monitor blood pressures and adjust medications accordingly. Hyperlipidemia Continue statin. Sleep apnea CPAP PRN ordered. Unsure if patient will comply. COPD Based on exam, no acute exacerbation. Continue Symbicort. PRN duo nebs. Constipation Start Lora-Colace 2 tablets twice daily. Start daily MiraLAX. If unsuccessful, will consider enemas. Abdominal pain Unremarkable CAT scan of the abdomen. Possibly secondary to constipation. Treatment as above. Start PPI for possible gastritis. Is on chart review, patient with history of GI bleed. Hypokalemia Monitor and replace electrolytes. Right-sided chest pain Patient reports pain worse with deep breathing. Serial troponins came back negative. EKG continues to show A. fib with no acute ischemic changes. I suspect pleuritic pain from the pneumonia. DVT prophylaxis: In place. GI prophylaxis: In place. Disposition: Inpatient. 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 Personal communication requested for any clarification. Luigi Brooks MD 07/25/2019 9:36 AM PDT londra Tripathi RN - 07/24/2019 1:42 PM PDTPt is COVID 19 negative. Respiratory panel also negative. You may take off all isolation according to physician's clinical judgement. Thank you! Alondra Tripathi, RN, MSN, Infection Prevention Coordinator Luigi Fontanez MD - 07/24/2019 10:19 AM PDTFormatti ng of this note might be different from the original. [facility] Service: Hospitalist Progress Note Hospital Day: LOS: 1 day SUBJECTIVE Patient Summary: 63-year-old male with history of atrial fibrillation, type 2 diabetes , OPD, hypertension, obesity, some underlying history of developmental delay claims to live alone and claims to be able to perform basic ADLs who presented with palpitations. Per HPI, patient had multiple ED visits for similar symptoms of palpitations. Also with vague abdom inal pain and constipation. Patient claims to be compliant with his medications. In the em ergency room, patient has leukocytosis. Chest x-ray showed possible right lobe pneumonia. CAT scan of the abdomen confirmed the right lobe pneumonia but no acute findings in the abdo men. There was also suspicion of stroke due to ataxia. CAT scan of the head was done which was unremarkable. There was concerns that the patient actually is not capable of taking ca re of himself at home. Patient recalls that he was in an adult family home in the past and expresses that he does not want to go back to any kind of nursing facility. Denied fever or chills. No shortness of breath or cough. He mentioned occasional choking episodes with fl uids. Does not drink alcohol or uses drugs. Patient was admitted and started on Unasyn for possible aspiration pneumonia. He was also found to have atrial fibrillation. Per HPI, cleopatra prabhakar possibly noncompliant actually with his occasions. He was started back on Eliquis. I change his carvedilol to metoprolol XL for better rate control. He complained of constipat ion. Stool softeners and laxatives ordered. Events Overnight: Seen and examined patient. Main complaint is constipation x4 days a nd vague abdominal pain. No nausea or vomiting. Fevers or chills. No shortness of breath. Scheduled Medications albuterol-ipratropium 3 mL Nebulization RT Q6H ampicillin-sulbactam 3 g Intravenous Q6H apixaban 5 mg Oral BID ARIPiprazole 5 mg Oral Daily atorvaSTATin 40 mg Oral Nightly budesonide-formoterol 2 puff Inhalation BID finasteride 5 mg Oral Daily insulin detemir 45 Units Subcutaneous Nightly insulin lispro 0-12 Units Subcutaneous 4x Daily WC and HS lisinopril 40 mg Oral Daily metoprolol succinate 50 mg Oral Daily NIFEdipine 60 mg Oral Daily Continuous Infusions dextrose 10% PRN Medications Hypoglycemia Management AND POCT Glucose AND dextrose AND dextrose 10%, hydrALA ZINE, labetalol, melatonin OBJECTIVE Vital Signs: Vitals: 07/23/19 2355 07/24/19 0342 07/24/19 0741 07/24/19 0905 BP: 133/74 161/74 153/74 175/79 Pulse: 106 117 115 122 Resp: 22 24 20 Temp: 36.8 C (98.2 F) 36.8 C (98.2 F) 36.8 C (98.2 F) TempSrc: Oral Oral Oral SpO2: 94% 93% Weight: 102.2 kg (225 lb 5 oz) Height: 1.803 m (5' 11") Physical Exam General appearance: alert, appears stated age and cooperative. Mildly unkempt, no distress . Interactive with mild dysarthria. Head: Normocephalic, without obvious abnormality, atraumatic Neck: no adenopathy, no carotid bruit, no JVD, supple, symmetrical, trachea midline and thy roid not enlarged, symmetric, no tenderness/mass/nodules Lungs: clear to auscultation bilaterally Heart: regular rate and rhythm, S1, S2 normal, no murmur, click, rub or gallop Abdomen: soft, non-tender; bowel sounds normal; no masses, no organomegaly Extremities: extremities normal, atraumatic, no cyanosis or edema Pulses: 2+ and symmetric Skin: Skin color, texture, turgor normal. No rashes or lesions Lymph nodes: Cervical, supraclavicular, and axillary nodes normal. Neuro: Mild dysarthria. Cranial nerves II through XII grossly intact. 5/5 motor all over. DATA, personally reviewed Recent Labs Lab 07/24/19 0540 07/23/19 1749 WBC 11.09* 16.77* HGB 12.2* 13.5 HCT 37.0* 41.5 PLT 244 266 MONOPCT 8.70 8.20 Recent Labs Lab 07/24/19 0540 07/23/19 1749 NA 137 136 K 3.5 3.4* CL 105 100 CO2 26 27 BUN 13 19 CALCIUM 8.6 9.3 ALKPHOS -- 160* ALT -- 34 AST -- 23 Recent Labs Lab 07/24/19 0540 MG 1.8 Recent Labs Lab 07/23/19 1749 INR 1.0 Lab Results Component Value Date CREA 0.70 07/24/2019 LABCREA 1.12 09/21/2018 Radiology, personally reviewed Ct Head Wo Contrast Result Date: 07/23/2019 1. No acute intracranial process. 2. Nonobstructive pattern sinonasal disease. Signed by: Sukhjinder garvey M.D., Richard Sign Date/Time: 07/23/2019 6:[address] Abdomen Pelvis W Contrast Result Date: 07/23/2019 1. New ground-glass opacities in right lower lobe. Differential diagnosis includes aspirat ion, viral pneumonia, and bacterial pneumonia. 2. No acute findings within the abdomen or pe lvis. Signed by: Irina Arrington Irene Sign Date/Time: 07/23/2019 6:44 PM Xr Chest Ap Portable Addendum Date: 07/23/2019 ADDENDUM BEGINS There is hazy opacification of the right lung base which corresponds to renee und-glass opacities on same day CT of the abdomen and pelvis. Signed by: Irina Arrington Irene Sign Date/Time: 07/23/2019 6:50 PM ADDENDUM ENDS Result Date: 07/23/2019 Negative chest. Signed by: Irina Arrington Irene Sign Date/Time: 07/23/2019 5:18 PM PROBLEM LIST Principal Problem: Pneumonia Active Problems: Diabetes mellitus, type 2 HTN (hypertension) Paroxysmal atrial fibrillation Hyperlipidemia WARD (obstructive sleep apnea) Hypertension Chronic anticoagulation ASSESSMENT & PLAN Pneumonia Based on location, right lower lobe, highly suspicious for aspiration. Speech therapy consulted. They recommended regular texture with thin liquids. Continue Unasyn. COVID-19 test negative. Follow-up blood cultures. Legionella and respiratory film array pending. Oxygen supplementation as needed. Lasers. Type 2 diabetes Continue Levemir. Continue Humalog correctional scale. Sugars not well controlled. Ordered Humalog 5 units 3 times a day with meals. Check A1c. Paroxysmal atrial fibrillation Continue Eliquis for anticoagulation. Patient required 1 dose of diltiazem in the ED for RVR. I will switch carvedilol to Toprol-XL 50 mg for better rate control. Will titrate dependin g on response. Hypertension Continue Procardia, metoprolol and lisinopril. Monitor blood pressures and adjust medications accordingly. Hyperlipidemia Continue statin. Sleep apnea CPAP PRN ordered. Unsure if patient will comply. COPD Based on exam, no acute exacerbation. Continue Symbicort. PRN duo nebs. Constipation Start Lora-Colace 2 tablets twice daily. Start daily MiraLAX. If unsuccessful, will consider enemas. Abdominal pain Unremarkable CAT scan of the abdomen. Possibly secondary to constipation. Treatment as above. Start PPI for possible gastritis. Is on chart review, patient with history of GI bleed. Hypokalemia Monitor levels. KCl 40 mEq p.o. x1 now. DVT prophylaxis: In place. GI prophylaxis: In place. Disposition: Inpatient. 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 Personal communication requested for any clarification. Luigi Brooks MD 07/24/2019 10:19 AM PDT documented in this enc ounter H&P Notes Tj Handley, DO - 07/24/2019 2:41 AM PDTFormatting of this note might be different from th e original. [facility] Service: Hospitalist Admission History & Physical Pt: Norah Gr AGE/SEX: 63 y.o. male ROOM: 4454/4454-01 PCP: Mireya Pack NP : 1955 TODAY'S DATE: 07/24/2019 Date of Admission: 07/23/2019 Chief Complaint: Palpitations History of Present Illness: The patient is a 63 y.o. male with significant past medical history of developmentaldelay , hypertension,atrial fibrillation, obstructivesleep apnea, and obesity who presents wit h a number of vague symptoms including palpitations. Patient has numerous ED visits and admi ssion for similar complaints over the last few months. Additionally he admits to presenting to other hospitals EDs. Patient is an extremely poor historian and there is no family or fri ends here to aid in history. Patient reports some palpitations that he was feeling earlier so he came to the ED. In the ED patient had elevated WBC and some evidence of pneumonia on CXR. He denies cough, chest pain, SOB or other overt symptoms. Patient appears disheveled and per the ED physician had feces on his legs. There has been concern noted that the patient is becoming incapable of taking care of himself. Patient lives alone currently. Due to the patient's findings and apparent inability to take care of himself admission was requested by the ED physician . PMHx: Past Medical History: Diagnosis Date Acute pulmonary [...] of GE junction Hypercholesterolemia 07/08/2013 Hyperlipidemia Hypertension prison (current) use of 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 Obesity, Class I, BMI 30-34.9 07/08/2013 WARD (obstructive sleep apnea) 08/11/2012 does not use CPAP because of the noise Other chronic pain Renal failure Stroke (HCC) TIA (transient ischemic attack) Unspecified visual disturbance reading glasses PSHx: Past Surgical History: Procedure Laterality Date ABDOMEN SURGERY CHOLECYSTECTOMY CHOLECYSTECTOMY, LAPAROSCOPIC 09/12/2012 Procedure: LAPAROSCOPIC - CHOLECYSTECTOMY; Surgeon: Jevon Vargas DO; Location: [facility] MAIN OR; Service: General; 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; COLONOSCOPY COLONOSCOPY 03/04/2013 Procedure: COLONOSCOPY; Surgeon: Howie Gibson MD; Location: [facility] ENDOSCOPY; Service: Gastroen terology; 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; HERNIA REPAIR 07/03/2013 Procedure: LAPAROSCOPIC - HERNIA - INCISIONAL; Surgeon: Jevon Vargas DO; Location: [facility] MAIN OR; Service: General; 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; KNEE SURGERY rt knee, patella LEG SURGERY LLE OTHER SURGICAL HISTORY UNLISTED PROCEDURE ARTHROSCOPY OTHER SURGICAL HISTORY Left 05/05/2014 SKIN LESION EXCISION - Procedure: EXCISION - LESION - FROZEN SECTION; Surgeon: Sy murcia MD; Location: [facility] MAIN OR; Service: Plastics; Laterality: Left; forearm SKIN BIOPSY SKIN CANCER EXCISION Left 10/10/2012 Procedure: EXCISION - SKIN CANCER; Surgeon: Sy Fierro MD; Location: [facility] MAIN OR; Service: Plastics; Laterality: Left; upper arm and upper back w/frozen section UPPER GASTROINTESTINAL ENDOSCOPY UPPER GASTROINTESTINAL ENDOSCOPY 03/03/2013 Procedure: ESOPHAGOGASTRODUODENOSCOPY; Surgeon: Howie Gibson MD; Location: [facility] ENDOSCOPY; Se rvice: Gastroenterology; 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; Prior To admission Meds: Prior to Admission medications Medication Sig Start Date End Date Taking? Authorizing Provider apixaban (ELIQUIS) 5 mg tablet Take 1 tablet by mouth 2 times daily. Patient not taking: Reported on 07/03/2019 11/07/18 Mireya Pack NP ARIPiprazole (ABILIFY) 5 mg tablet Take 1 tablet by mouth Daily. Patient not taking: Reported on 07/03/2019 05/18/19 Cristo Ahn MD atorvaSTATin (LIPITOR) 40 mg tablet Take 1 tablet by mouth nightly. Patient not taking: Reported on 07/03/2019 12/26/18 Mireya Pack NP Blood Glucose Monitoring Suppl (BLOOD GLUCOSE MONITOR SYSTEM) w/Device KIT Dispense brand p er patient preference 04/18/19 Mireya Pack NP Blood Pressure KIT Dispense as insurance allows to check Blood Pressure one time daily each day. 06/04/19 Mireya Pack NP budesonide-formoterol (SYMBICORT) 160-4.5 mcg/puff inhaler Inhale 2 puffs into the lungs 2 times daily. Patient not taking: Reported on 07/03/2019 11/01/18 11/01/19 Mireya Pack NP carvedilol (COREG) 12.5 mg tablet Take 1 tablet by mouth 2 times daily (with breakfast & di nner). 07/22/19 Historical ProviderMD finasteride (PROSCAR) 5 mg tablet Take 1 tablet by mouth Daily. Patient not taking: Reported on 07/03/2019 11/07/18 Mireya Pack NP Glucose Blood (BLOOD GLUCOSE TEST STRIPS) STRP For blood sugar testing 4 times daily 0 Mireya Pack NP hydrALAZINE (APRESOLINE) 25 mg tablet Take 1 tablet by mouth Twice daily as needed (in add ition to scheduled. for bp > 170/80). 07/10/19 Mireya Pack NP HYDROcodone-acetaminophen (NORCO) 5-325 mg per tablet Take 1-2 tablets by mouth every 4 remi rs as needed. Patient not taking: Reported on 07/03/2019 05/24/19 Mireya Pack NP insulin detemir (LEVEMIR FLEXTOUCH) 100 units/mL injection (pen) Inject 45 Units under the skin nightly. 05/30/19 Mireya Pack NP insulin lispro (HUMALOG KWIKPEN) 100 units/mL injection (pen) Inject 20 Units under the ski n 3 times daily (with meals). 05/30/19 Mireya Pack NP Insulin Pen Needle (BD PEN NEEDLE KYAW U/F) 32G X 4 MM MISC For insulin administration 4 ti mes daily 07/23/19 Mireya Pack NP Lancets (ACCU-CHEK MULTICLIX) MISC 1 each by Other route 4 times daily. 04/18/19 Mireya malave NP lisinopril (PRINIVIL,ZESTRIL) 40 MG tablet Take 1 tablet by mouth Daily. Patient not taking: Reported on 07/03/2019 03/27/19 Mireya Pack NP meclizine (ANTIVERT) 25 mg tablet Take 1 tablet by mouth 3 times daily as needed. Patient not taking: Reported on 07/03/2019 03/27/19 Mireya Pack NP melatonin 3 mg TABS Take 1 tablet by mouth nightly as needed for Insomnia. Patient not taking: Reported on 07/03/2019 05/18/19 Cristo Ahn MD metFORMIN (GLUCOPHAGE) 500 mg tablet Take 1 tablet by mouth 2 times daily (with breakfast & dinner). Patient not taking: Reported on 07/03/2019 11/07/18 Mireya Pack NP NIFEdipine (ADALAT CC) 60 MG 24 hr tablet Take 1 tablet by mouth Daily. 07/22/19 Janell Sheikh MD omeprazole (PRILOSEC) 20 mg capsule TAKE ONE CAPSULE BY MOUTH EVERY MORNING (BEFORE ) Patient not taking: Reported on 07/03/2019 06/28/19 Mireya Pack NP tamsulosin (FLOMAX) 0.4 mg CAPS Take 1 capsule by mouth 2 times daily. Patient not taking: Reported on 07/03/2019 11/07/18 Mireya Pack NP vancomycin 125 mg capsule Take 1 capsule by mouth 4 times daily. 07/22/19 Historical Shashank gonzalez MD Medications scheduled: albuterol-ipratropium 3 mL Nebulization RT Q6H apixaban 5 mg Oral BID ARIPiprazole 5 mg Oral Daily atorvaSTATin 40 mg Oral Nightly budesonide-formoterol 2 puff Inhalation BID carvedilol 12.5 mg Oral BID WC finasteride 5 mg Oral Daily insulin detemir 45 Units Subcutaneous Nightly insulin lispro 0-12 Units Subcutaneous 4x Daily WC and HS lisinopril 40 mg Oral Daily NIFEdipine 60 mg Oral Daily Allergies: Allergies Allergen Reactions Nitroglycerin Swelling Tongue swelling Vitamin B12 Rash Rash Family Hx: Family History Problem Relation Age of Onset Heart disease Father Heart disease Sister Diabetes, NIDDM Sister Other (see comment) Brother Heart Problems Social Hx: Social History Tobacco Use Smoking status: Never Smoker Smokeless tobacco: Never Used Substance Use Topics Alcohol use: Not Currently Comment: Alcoholic Drinks/day: occassional Review of Symptoms: Constitutional: Negative for fever, chills, diaphoresis, activity change, appetite change, fatigue and unexpected weight change. HENT: Negative for hearing loss, ear pain, nosebleeds, congestion, facial swelling, rhinorr hea, neck pain, neck stiffness, dental problem, tinnitus and ear discharge. Eyes: Negative for photophobia, pain, discharge, redness, itching and visual disturbance. Respiratory: Negative for apnea, cough, chest tightness, shortness of breath and wheezing. Cardiovascular: Negative for chest pain, and leg swelling. Admits to palpitations Gastrointestinal: Negative for nausea, vomiting, abdominal pain, diarrhea, constipation, bl ood in stool, abdominal distention, anal bleeding and rectal pain. Genitourinary: Negative for dysuria, frequency, hematuria, flank pain, difficulty urinating and dyspareunia. Musculoskeletal: Negative for back pain, joint swelling, arthralgias and gait problem. Skin: Negative for color change, pallor, rash and wound. Neurological: Negative for dizziness, tremors, seizures, syncope, weakness, light-headednes s, numbness and headaches. Hematological: Negative for adenopathy. Does not bruise/bleed easily. Psychiatric/Behavioral: Negative for suicidal ideas, hallucinations, behavioral problems, c onfusion and agitation. Objective: Vital Signs: BP 133/74 | Pulse 106 | Temp 36.8 C (98.2 F) (Oral) | Resp 22 | Ht 1.803 m (5' 11") | Wt 102.2 kg (225 lb 5 oz) | SpO2 94% | BMI 31.42 kg/m Physical Exam: Constitutional: Appears well-developed and well-nourished. HEENT: Head: Normocephalic and atraumatic. Nose: Nose normal. Mouth/Throat: Oropharynx is clear and moist. Eyes: Conjunctivae and EOM are normal. Pupils are equal, round, and reactive to light. Righ t eye exhibits no discharge. Left eye exhibits no discharge. No scleral icterus. Neck: Normal range of motion. Neck supple. No JVD present. No tracheal deviation present. N o thyromegaly present. no cervical adenopathy. Cardiovascular: Normal rate, regular rhythm, normal heart sounds with S1 and S2, and intact distal pulses. Exam reveals no gallop and no friction rub. No murmur heard. Pulmonary/Chest: Effort normal and breath sounds normal. No stridor. No respiratory distres s. no wheezes. no rales. exhibits no tenderness. Abdominal: Soft. Bowel sounds are normal. exhibits no distension and no mass. There is no t enderness. There is no rebound and no guarding. Extremities/Musculoskeletal: Normal range of motion.exhibits no tenderness. exhibits no ed dayana. Neurological: Alert and oriented to person, place, and time. Has normal reflexes. display s normal reflexes. No cranial nerve deficit. Exhibits normal muscle tone. Coordination norm al. Skin: Skin is warm and dry. No rash noted. No erythema. No pallor. Psychiatric: Has a normal mood and affect. Behavior is normal. Judgment normal. Data: CBC: Lab Results Component Value Date WBC 16.77 (H) 07/23/2019 RBC 5.02 07/23/2019 RBC 5.53 09/21/2018 HGB 13.5 07/23/2019 HCT 41.5 07/23/2019 MCV 82.7 07/23/2019 MCH 26.9 (L) 07/23/2019 MCHC 32.5 07/23/2019 PLT 266 07/23/2019 MPV 10.0 07/23/2019 DIFFTYPE AUTOMATED 07/23/2019 CMP: Lab Results Component Value Date NA 136 07/23/2019 K 3.4 (L) 07/23/2019 CL 100 07/23/2019 CO2 27 07/23/2019 ANIONGAP 12 07/23/2019 GLUF 292 (H) 09/21/2018 BUN 19 07/23/2019 GLOB 2.7 09/21/2018 AGRATIO 1.4 07/23/2019 BILITOT 0.5 09/21/2018 AST 23 07/23/2019 ALT 34 07/23/2019 EGFR >60 07/23/2019 IMAGING: Ct Head Wo Contrast Result Date: 07/23/2019 CT HEAD WITHOUT CONTRAST CLINICAL INFORMATION: Headaches and dizziness, Ataxia, stroke susp ected COMPARISON: CT HEAD WO CONTRAST (05/16/2019); CT HEAD WO CONTRAST (01/25/2019); MRI FRANCISCO OGRAM HEAD WO CONTRAST (01/04/2019); PROCEDURE: Axial images were obtained through the head without IV contrast. Multiplanar reformations were obtained from the acquisition data. At le ast one of the following CT dose optimization techniques were used: Automated exposure contr ol; Adjustment of mA and/or kV according to patient size; Use of iterative reconstruction te chnique. FINDINGS: Brain: No intracranial hemorrhage, midline shift or pathologic mass effec t. No cerebral edema, mass lesion, or evidence of acute infarct. Ventricles and extra-axial fluid spaces: Normal. Paranasal sinuses and mastoid air cells: Complete opacification of the left frontal sinus is noted with moderate mucosal thickening of the right side. Mild mucos al thickening is demonstrated of the bilateral ethmoid sinuses. There is minimal mucosal th ickening of the right maxillary sinus. Debris is seen along the left external auditory jefe l. Calvarium and extracranial soft tissues: Normal. Orbits: Imaged portions of the orbits ar e normal. 1. No acute intracranial process. 2. Nonobstructive pattern sinonasal disease. Signed by: Sukhjinder garvey M.D., Kishan Sign Date/Time: 07/23/2019 6:[address] Abdomen Pelvis W Contrast Result Date: 07/23/2019 CT ABDOMEN AND PELVIS WITH CONTRAST CLINICAL INFORMATION: Abdominal pain and constipation C OMPARISON: CT ANGIOGRAM PULMONARY W CONTRAST (07/03/2019); CT ABDOMEN PELVIS W CONTRAST (02/24); CT ABDOMEN PELVIS WO CONTRAST (04/28/2014); PROCEDURE: Axial images through the abdom en and pelvis after the administration of 100 ml omnipaque 350 intravenous contrast. Multipl hung reconstructions. At least one of the following CT dose optimization techniques were use d: Automated exposure control; Adjustment of mA and/or kV according to patient size; Use of iterative reconstruction technique. FINDINGS: LUNG BASES: Ground-glass opacities in right lo wer lobe are new compared to 07/03/2019. No pleural effusion or pneumothorax. ABDOMEN Liver and Biliary: No biliary abnormality. No significant liver abnormality. Post cholecystectomy . Pancreas, Spleen and Adrenals: No pancreatitis or pancreatic mass. No splenomegaly or sple louisa hemorrhage. Stable small splenic hypodensity. No significant adrenal abnormality. Kidne ys: No hydronephrosis, calculus or solid renal mass. ABDOMEN AND PELVIS Bowel: No small barbra l or colonic dilation or adjacent inflammation. No appendiceal dilation or inflammation. Ves sels: No significant abnormality in the aorta or its proximal branches. No significant abnor mality in the portal veins, mesenteric veins or systemic veins. Lymph Nodes: No adenopathy. Peritoneum and Retroperitoneum: No ascites or free air. No significant retroperitoneal abnor mality. PELVIS Genitourinary: Distal ureters and bladder appear normal. No pelvic masses. B SETH WALL Soft Tissues: No bowel or inflamed fat containing hernia, mass or hemorrhage. Bones : No acute fracture or vertebral end plate destruction. Old healed fracture of right inferi or pubic ramus. No lytic or blastic lesion. 1. New ground-glass opacities in right lower lobe. Differential diagnosis includes aspirat ion, viral pneumonia, and bacterial pneumonia. 2. No acute findings within the abdomen or pe lvis. Signed by: Irina Arrington Irene Sign Date/Time: 07/23/2019 6:44 PM Xr Chest Ap Portable Addendum Date: 07/23/2019 ADDENDUM BEGINS There is hazy opacification of the right lung base which corresponds to renee und-glass opacities on same day CT of the abdomen and pelvis. Signed by: Irina Arrington Irene Sign Date/Time: 07/23/2019 6:50 PM ADDENDUM ENDS Result Date: 07/23/2019 CHEST PORTABLE ONE VIEW CLINICAL INFORMATION: Heart palpitations COMPARISON: CT ANGIOGRAM P ULMONARY W CONTRAST (07/03/2019); XR CHEST AP PORTABLE (05/15/2019); FINDINGS: Heart, lungs and vessels normal. No pneumothorax, pleural effusion or adenopathy. No significant bone abnorm ality. Negative chest. Signed by: Irina Arrington Irene Sign Date/Time: 07/23/2019 5:18 PM EKG: Atrial fibrillation - no evidence of acute ischemia Problem List: Principal Problem: Pneumonia Active Problems: Diabetes mellitus, type 2 HTN (hypertension) Paroxysmal atrial fibrillation Hyperlipidemia WARD (obstructive sleep apnea) Hypertension Chronic anticoagulation Assessment and Plan: Pneumonia evidence on chest x-ray, patient does not have any symptoms of productive cough , shortness of breath or overt chest pain at this point time. Patient presented with palpit ations, chest x-ray showing evidence of infiltrate possibly aspiration pneumonia. Additiona melva patient has elevated white blood cell count. Admit inpatient Continue Unasyn Monitor for symptoms Pneumonia serologies and sputum culture Oxygen PRN Nebulizers. Inability to take care of self patient has numerous ED presentations as well as some adm issions, there is multiple concerns from different providers about patient's ability to care for self. Patient lives alone. After discussion with patient, it is apparent that he does not want to be placed in a nursing facility. Case management consult for options for increasing level of care Palpitations likely secondary to atrial fibrillation. Patient has paroxysmal atrial fibr illation. Currently in atrial fibrillation. Patient is noncompliant with medications/antic oagulation as he reports he is unable to pay co-pays. Monitor on telemetry for now Continue home medications Continue anticoagulation Will need close follow-up as an outpatient to manage and choose cost-effective medicati ons. Hypertension clinically stable Continue carvedilol and lisinopril as well as nifedipine Monitor blood pressure closely Type 2 diabetes Continue home Levemir Sliding scale insulin Fingerstick glucose monitoring Glycemia protocol DVT prophylaxis Eliquis Patient's old records and labs were reviewed in detail. Code Status: Full Code Primary Care Physician: NORM White DO 07/24/2019 3:21 AM PDT documented in this encoun ter ED Notes Lacey Jackson RN - 07/23/2019 11:12 PM PDTBedside report given to Nelida PRADO, kalina cardenas pt arrival symptoms, PMH, labs/rad/med and vitals. No further questions noted. 1 1:12 PM PDTThLacey mcnair RN - 07/23/2019 10:52 [address]TC[address] floor 2x to report stable vitals, not able to reach RN. Reina Cedeño MD - 07/23/2019 4:29 PM PDTFormatting of this note might be d ifferent from the original. [facility] Department of Emergency Medicine No flowsheet data found. History of Present Illness Patient Identification Norah Gr is a 63 y.o. male. Norah Gr Patient information was obtained from patient patient History/Exam limitations: none. Patient presented to the Emergency Department by: Car Chief Complaint Chief Complaint Patient presents with Heart Palpitations states started at 1200, hx of afib HPI: 63 y.o. y.o. male presents to ED with multiple complaints. States he has not been himself he is more weak he is having episodes of heart palpitations not necessarily with chest pain. He is having trouble caring for himself due to his weaknes s. No fever no definite cough. No headaches feeling like he is not quite himself and like he is having more difficulty with his speech. He is he is stuttering more. He has some occ asional delays and states that he always does have a stutter. Focal complaints of weakness. States he was weak enough today that he could not ambulate in his house. PCP: Mireya Pack NP Past Medical History: [...] of GE junction Hypercholesterolemia 07/08/2013 Hyperlipidemia Hypertension prison (current) use of 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 Obesity, Class I, BMI 30-34.9 07/08/2013 WARD (obstructive sleep apnea) 08/11/2012 does not use CPAP because of the noise Other chronic pain Renal failure Stroke (HCC) TIA (transient ischemic attack) Unspecified visual disturbance reading glasses Past Surgical History: Procedure Laterality Date ABDOMEN SURGERY CHOLECYSTECTOMY CHOLECYSTECTOMY, LAPAROSCOPIC 09/12/2012 Procedure: LAPAROSCOPIC - CHOLECYSTECTOMY; Surgeon: Jevon Vargas DO; Location: [facility] MAIN OR; Service: General; 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; COLONOSCOPY COLONOSCOPY 03/04/2013 Procedure: COLONOSCOPY; Surgeon: Howie Gibson MD; Location: [facility] ENDOSCOPY; Service: Gastroen terology; 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; HERNIA REPAIR 07/03/2013 Procedure: LAPAROSCOPIC - HERNIA - INCISIONAL; Surgeon: Jevon Vargas DO; Location: [facility] MAIN OR; Service: General; 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; KNEE SURGERY rt knee, patella LEG SURGERY LLE OTHER SURGICAL HISTORY UNLISTED PROCEDURE ARTHROSCOPY OTHER SURGICAL HISTORY Left 05/05/2014 SKIN LESION EXCISION - Procedure: EXCISION - LESION - FROZEN SECTION; Surgeon: Sy murcia MD; Location: [facility] MAIN OR; Service: Plastics; Laterality: Left; forearm SKIN BIOPSY SKIN CANCER EXCISION Left 10/10/2012 Procedure: EXCISION - SKIN CANCER; Surgeon: Sy Fierro MD; Location: [facility] MAIN OR; Service: Plastics; Laterality: Left; upper arm and upper back w/frozen section UPPER GASTROINTESTINAL ENDOSCOPY UPPER GASTROINTESTINAL ENDOSCOPY 03/03/2013 Procedure: ESOPHAGOGASTRODUODENOSCOPY; Surgeon: Howie Gibson MD; Location: [facility] ENDOSCOPY; Se rvice: Gastroenterology; 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; Prior to Admission medications Medication Sig Start Date End Date Taking? Authorizing Provider apixaban (ELIQUIS) 5 mg tablet Take 1 tablet by mouth 2 times daily. Patient not taking: Reported on 07/03/2019 11/07/18 Mireya Pack NP ARIPiprazole (ABILIFY) 5 mg tablet Take 1 tablet by mouth Daily. Patient not taking: Reported on 07/03/2019 05/18/19 Cristo Ahn MD atorvaSTATin (LIPITOR) 40 mg tablet Take 1 tablet by mouth nightly. Patient not taking: Reported on 07/03/2019 12/26/18 Mireya Pack NP Blood Glucose Monitoring Suppl (BLOOD GLUCOSE MONITOR SYSTEM) w/Device KIT Dispense brand ashley llanos patient preference 04/18/19 Mireya Pack NP Blood Pressure KIT Dispense as insurance allows to check Blood Pressure one time daily each day. 06/04/19 Mireya Pack NP budesonide-formoterol (SYMBICORT) 160-4.5 mcg/puff inhaler Inhale 2 puffs into the lungs 2 times daily. Patient not taking: Reported on 07/03/2019 11/01/18 11/01/19 Mireya Pack NP carvedilol (COREG) 12.5 mg tablet Take 1 tablet by mouth 2 times daily (with breakfast & di nner). 07/22/19 Historical Provider, finasteride (PROSCAR) 5 mg tablet Take 1 tablet by mouth Daily. Patient not taking: Reported on 07/03/2019 11/07/18 Mireya Pack NP Glucose Blood (BLOOD GLUCOSE TEST STRIPS) STRP For blood sugar testing 4 times daily 0 Mireya Pack NP hydrALAZINE (APRESOLINE) 25 mg tablet Take 1 tablet by mouth Twice daily as needed (in add ition to scheduled. for bp > 170/80). 07/10/19 Mireya Pack NP HYDROcodone-acetaminophen (NORCO) 5-325 mg per tablet Take 1-2 tablets by mouth every 4 remi rs as needed. Patient not taking: Reported on 07/03/2019 05/24/19 Mireya Pack NP insulin detemir (LEVEMIR FLEXTOUCH) 100 units/mL injection (pen) Inject 45 Units under the skin nightly. 05/30/19 Mireya Pack NP insulin lispro (HUMALOG KWIKPEN) 100 units/mL injection (pen) Inject 20 Units under the ski n 3 times daily (with meals). 05/30/19 Mireya Pack NP Insulin Pen Needle (BD PEN NEEDLE KYAW U/F) 32G X 4 MM MISC For insulin administration 4 ti mes daily 07/23/19 Mireya Pack NP Lancets (ACCU-CHEK MULTICLIX) MISC 1 each by Other route 4 times daily. 04/18/19 Mireya malave NP lisinopril (PRINIVIL,ZESTRIL) 40 MG tablet Take 1 tablet by mouth Daily. Patient not taking: Reported on 07/03/2019 03/27/19 Mireya Pack NP meclizine (ANTIVERT) 25 mg tablet Take 1 tablet by mouth 3 times daily as needed. Patient not taking: Reported on 07/03/2019 03/27/19 Mireya Pack NP melatonin 3 mg TABS Take 1 tablet by mouth nightly as needed for Insomnia. Patient not taking: Reported on 07/03/2019 05/18/19 Cristo Ahn MD metFORMIN (GLUCOPHAGE) 500 mg tablet Take 1 tablet by mouth 2 times daily (with breakfast & dinner). Patient not taking: Reported on 07/03/2019 11/07/18 Mireya Pack NP NIFEdipine (ADALAT CC) 60 MG 24 hr tablet Take 1 tablet by mouth Daily. 07/22/19 Janell Sheikh MD omeprazole (PRILOSEC) 20 mg capsule TAKE ONE CAPSULE BY MOUTH EVERY MORNING (BEFORE ) Patient not taking: Reported on 07/03/2019 06/28/19 Mireya Pack NP tamsulosin (FLOMAX) 0.4 mg CAPS Take 1 capsule by mouth 2 times daily. Patient not taking: Reported on 07/03/2019 11/07/18 Mireya Pack NP vancomycin 125 mg capsule Take 1 capsule by mouth 4 times daily. 07/22/19 Historical Shashank gonzalez MD Allergies Allergen Reactions Nitroglycerin Swelling Tongue swelling Vitamin B12 Rash Rash Social History Socioeconomic History Marital status: Spouse [...] file Gets together: Not on file Attends tenriism service: Not on file Active member of [...] Lives alone x 1 wk, moved from [facility], , 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 2 falls in the last 6 months. Family History Problem Relation Age of Onset Heart disease Father Heart disease Sister Diabetes, NIDDM Sister Other (see comment) Brother Heart Problems Review of Systems Review of Systems Constitutional: Positive for fatigue. Negative for chills and fever. HENT: Negative for trouble swallowing. Eyes: Negative. Respiratory: Positive for shortness of breath. Cardiovascular: Positive for palpitations and leg swelling. Negative for chest pain. Gastrointestinal: Positive for abdominal pain and diarrhea. Negative for constipation and n ausea. Genitourinary: Negative for difficulty urinating. Musculoskeletal: Positive for gait problem. Skin: Negative. Neurological: Positive for speech difficulty and weakness. Negative for dizziness, seizures , syncope and headaches. Psychiatric/Behavioral: Negative for agitation. The patient is not nervous/anxious. Physical Exam Temp: 37 C (98.6 F) Pulse: 86 Resp: 26 BP: 175/79 SpO2: 96 % Vital signs reviewed and tachypneic hypertensive pulse ox normal Physical Exam Constitutional: Appearance: He is obese. He is not ill-appearing or toxic-appearing. Comments: Overall poor condition HENT: Head: Normocephalic and atraumatic. Right Ear: External ear normal. Left Ear: External ear normal. Mouth/Throat: Mouth: Mucous membranes are moist. Eyes: General: No scleral icterus. Extraocular Movements: Extraocular movements intact. Pupils: Pupils are equal, round, and reactive to light. Cardiovascular: Rate and Rhythm: Normal rate. Heart sounds: No murmur. Pulmonary: Effort: Pulmonary effort is normal. No respiratory distress. Breath sounds: Rales present. Comments: Patient has rales in the right base Abdominal: General: Bowel sounds are normal. Palpations: Abdomen is soft. There is no mass. Tenderness: There is abdominal tenderness. There is no right CVA tenderness, left CVA te nderness, guarding or rebound. Hernia: No hernia is present. Comments: Some mild upper diffuse tenderness very nonspecific Skin: General: Skin is warm and dry. Capillary Refill: Capillary refill takes less than 2 seconds. Findings: No bruising. Neurological: General: No focal deficit present. Mental Status: He is alert and oriented to person, place, and time. Cranial Nerves: Cranial nerves are intact. No cranial nerve deficit. Sensory: Sensation is intact. No sensory deficit. Motor: Motor function is intact. No abnormal muscle tone. Coordination: Coordination normal. Mipqiv-Yage-Viarfs Test and Heel to Robertson Test normal. Deep Tendon Reflexes: Reflex Scores: Bicep reflexes are 2+ on the right side and 2+ on the left side. Brachioradialis reflexes are 2+ on the right side and 2+ on the left side. Patellar reflexes are 2+ on the right side and 2+ on the left side. Psychiatric: Mood and Affect: Mood normal. Behavior: Behavior normal. Medical Decision Making and Emergency Department Course Records Reviewed Old medical records. ED Department Course She presents with overall deconditioning definitely an increased fatigue and weakness to th e point that he is not safely getting around he has had some shortness of breath but no defi nite chest pain he has not been around anybody sick he has not had a fever. Is seen in the emergency department frequently has some mild developmental delay though does take care of h imself. He feels like his speech and his thinking is not as clear as usual. We will plan o n scanning him obtaining labs cultures urinalysis EKG troponin Medical Decision Making as of Jul 24 316 Tue Jul 23, 2019 182 CMP shows mild hypokalemia at 3.4 glucose is elevated at 267 patient does have diabete s, increase in alk phos 160 without other changes in his LFTs. INR normal CBC shows a white count of 16.77 with mild left shift Urine shows greater than 500 glucose otherwise unremarkable 1825 Poor inspiratory effort decreased bone density mediastinum is not widened the aorta is somewhat tortuous aortic knob is not clear patient looks to have some increased vascular ch anges bilaterally No focal consolidation Viewed radiology report they called in a nonacute chest EKG done at 1554 shows a sinus rhythm with occasional PACs. Interval was normal left atria l enlargement QRS duration is normal With evidence of LVH by chest leads no significant Q waves no acute ST elevation or depress ion though he has some nonspecific T wave flattening with no evidence of acute ischemia QTC is not prolonged EKG is unchanged from EKG of July 06, 2019 with the exception that his QTC at that time was definitely prolonged at 502 ms. Impression 1. New ground-glass opacities in right lower lobe. Differential diagnosis includes aspiration, viral pneumonia, and bacterial pneumonia. 2. No acute findings within the abdomen or pelvis. Radiologist called me personally and stated that what she saw and not right lung base look to her to be an aspiration pneumonia though with the whole COVID pandemic we should consider that with the appearance as well. COVID testing is sent. She does have some risk factors for aspiration. I started Unasyn blood cultures were sent patient does not have a cough is not producing sputum. CT head Impression 1. No acute intracranial process. 2. Nonobstructive pattern sinonasal disease. Spoke with Dr. Handley the hospitalist in regards to patient's inability to care for himself h is right lower lobe pneumonia overall deconditioning. We will evaluate the patient he is fa miliar with him as well and admit him for evaluation for therapy and treatment of his pneumo madhu. COVID negative Instructed patient and plan for admission he is most agreeable and very much wanted to be a dmitted. With him his findings and our current concerns and gave him opportunity ask questi ons Clinical Impression: 1. Aspiration pneumonia of right lung, unspecified aspiration pneumonia type, unspecified p art of lung (HCC) 2. Paroxysmal atrial fibrillation (HCC) 3. Generalized weakness Disposition: Admitted in fair condition Discharge Medications: Current Discharge Medication List Reina Hill MD 07/25/19 0327 documented in this en counter Miscellaneous Notes Plan of Care - Di Montoya RN - 07/26/2019 12:21 PM PDTCare Management Final Discharge Plan Readmission Risk: HIGH Discharge Plan Planned Disposition: Home with Home Health Planned Destination: home PCP: Mireya Pack NP Patient/Family Notified: Transportation will be provided by: [facility] Transportation Date/Time: 07/26/19 1230 Community Support Services Current Outpt/Agency/Support Groups: homecare agency (specify level of care)(pt has JOE caregiver). Notified [facility] of d/c Community Agency Name: ([facility]) Home Health Disciplines:TC will resume services Equipment Durable Medical Equipment Provider: Home Equipment at Discharge: Equipment Used at Home: cane, quad Pharmacy Pharmacy/Medication needs: (Rx Pharmacy) Notes: Left mssg for pt's POA re d/c Electronically signed: Di Montoya RN 07/26/2019 12:21 PM PDT lan of Jelena - Karla Collins RN - 07/26/2019 6:43 AM PDTPt converted to NSR around 0030. Per tele, pt had a fe w 2-3 second pauses and ingrid'd down to 38 twice. Continuing IV abx. All care explained. Karla Collins, RN Problem: Fall Injury Risk Goal: Absence of Fall and Fall-Related Injury Outcome: Ongoing, progressing Problem: Adult Inpatient Plan of Care Goal: Plan of Care Review Outcome: Ongoing, progressing Problem: Infection Goal: Infection Symptom Resolution Outcome: Ongoing, progressing lan of Jelena - Gordon Avendano RN - 07/25/2019 5:01 PM PDT Problem: Fall Injury Risk Goal: Absence of Fall and Fall-Related Injury Outcome: Ongoing, progressing Free from falls, fall risk program maintained, patient calls for oob assistance. Problem: Infection Goal: Infection Symptom Resolution Outcome: Ongoing, progressing WBC trending down, afebrile, continue IV aboElectronically signed by Gordon Avendano RN at 5:02 PM PDTPlan of Jelena - Denice Ho RN - 07/25/2019 1:[address] Brooks: pt not medically ready for discharge today. 1245: spoke with Thomas from [facility]- pt is current with them. He said that the pt's apartment complex called them and said that his door was found open- so they change d the pt's locks to his apartment. 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 lan of Care - Elayne Sanderson OTR/L - 0 10:38 AM PDT Occupational Therapy Initial Evaluation Note Recommended discharge disposition: [facility]- states he will refuse. Pt wit h signs of decline in self care, fall risk, would benefit from supervision and therapies to increase safety Post discharge occupational therapy recommendation: will benefit from structured setting,H H OT if home d/c Equipment Recommendations: grab bars, shower chair, seat riser Barriers to community-based discharge Physical Impairment, Level of assistance for ADLs/mobility, Lack of social support, and Fal l risk Planned Interventions: ADL retraining, IADL retraining, balance training, functional endura nce training, strengthening, transfer training, caregiver ed/support, discharge planning Therapy Frequency: 2 times/wk for 10 days with reassessment due by 08/04/19 Summary: Pt is sitting in bed upon entry, AAOx3 and agreeable to OT session. VS are WFL th roughout session. During this evaluation pt completed functional transfers, toileting with a ssist, and ambulated with CGA and quad cane. Pt with soiled briefs, was unable to assist in brief change or pericare, but lives alone in apartment with little assist. Pt states that he rarely brushed teeth and declined to do so. Provided pt with demonstration, verbal educati on and handout for AE needs. Objective impairments include decreased strength, balance, cogn ition. Would likely benefit from increased supervision and assist with needs, states he will not go to a SNF. These functional limitations in patient's ability to complete ADLs/ IADLs / functional mobility and will require ongoing occupational therapy to maximize functional i ndependence and offer the opportunity to return to baseline function. Living Environment Lives With: alone Living Arrangements: apartment Number of Stairs to Enter Home: 1 Number of Stairs Within Home: 0 Living Environment Comment: BR; tub shower, has chair he brings in, no grab bars Prior Functional Level Comment: caregiver for 1.5 hours 3x a week, does meals on wheels. am bulates with quad cane Precautions Precaution Comment: hx developmental delay Precautions/Limitations: falls Cognitive Assessment Speech: slurred(chronic) Impairments Found (describe specific impairments): functional endurance/activity tolerance, gait, locomotion, and balance, cognitive Sensory Assessment Sensation Comments: denies n/t Vision Comments: reading glasses Toileting Assessment/Training Toileting Assess/Train, Comment: assist with pericare and clothing management Toileting, Level of [place]: maximal assist (25% patient effort) Assistive Device: grab bar Toileting Assess/Train, Position: sitting, standing Toileting Impairments: ROM decreased, strength decreased, impaired balance, impaired functi onal endurance/activity tolerance Bed Mobility Additional Documentation: supine to/from sit Assistive Device: HOB elevated Supine to Sit, Level of [place]: minimal assist (75% patient effort) Safety Issues: decreased use of arms for pushing/pulling, decreased use of legs for bridgin g/pushing Impairments: impaired balance, strength decreased Transfers Additional Documentation: sit to/from stand, toilet Sit-Stand, Level of [place]: stand by assist Stand-Sit, Level of [place]: stand by assist Ufh-[id number]-Mgl, Assistive Device: cane (quad), gait belt Toilet, Level of [place]: stand by assist Toilet, Assistive Device: cane (quad), grab bars Safety Issues: weight-shifting ability decreased Impairments: strength decreased, impaired balance ROM Testing Results: no range of motion deficits identified Strength Comments: generalized weakness Goals Reflects last filed data and may be from multiple contributors. LB Dressing Goal Most Recent Value LTG Status new at 07/25/2019 1038 LTG [place] Level stand by assist at 07/25/2019 1038 LTG Adaptive Equipment keg raiser, shoe horn, long handled, sock-aid at 07/25/2019 1038 Ther Exercise Goal Most Recent Value LTG Status new at 07/25/2019 1038 LTG level 3, with handout and verbal cues at 07/25/2019 1038 lan of Care - Karla Martin RN - 07/25/2019 7:02 AM PDTHR Afib in 70's to 90's mostly. 2245 Pt had a 7 second pause per tele. Pt symptomatic with feeling lightheadedness and robert ed any chest pain. MD Ahn notified and continued to monitor. 2315 Pt had another 6 second pause and c/o lightheadedness and chest pain radiating to L s ramilaulder, pt described as pressure. MD Ahn notified and EKG ordered. MD Handley notified to come assess pt. 0530 Pt had another 6 second pause per tele. Pt assessed and he stated, "I'm tired of my he art making me feel weird, I can really feel the flutter" Edit: Per tele at 0657, this was actually a 9 second pause 0630 Pt reassessed and stated he felt a little better and ordered breakfast. Continuing heart monitoring, IV abx. Call light within reach. Karla Collins RN Problem: Fall Injury Risk Goal: Absence of Fall and Fall-Related Injury Outcome: Ongoing, progressing Problem: Adult Inpatient Plan of Care Goal: Plan of Care Review Outcome: Ongoing, progressing Problem: Infection Goal: Infection Symptom Resolution Outcome: Ongoing, progressing lan of Care - Diya Ponce TORCH SOLDERER Student - 07/24/2019 3:00 PM PDTSpeech Therapy Bedside Swallow Initial Eloina luation Note Swallow Recommendations Recommended Solid Texture: regular Recommended Liquid Texture: thin liquids Recommended Medication Delivery: whole pills with thin liquids Recommended Feeding/Eating Techniques: monitor for signs of aspiration, maintain upright po sture during/after eating for 30 mins Summary: Pt seen for upright in bed for a bedside swallow evaluation. Pt was alert and fol lowed ST directions. Pt trialed ice chips x3, thin liquid x5, puree x3, soft solids x3, regu lar solids, and alternating between solid and thin liquids with no overt s/sx of aspiration. Pt reported that difficulties with speech and cognitive-linguisitc skills were present "sin ce ". Pt reports no further concerns with swallowing at this time. Please reorder TORCH SOLDERER if concerns arise. Recommended discharge disposition: other (see comments)(TBD) Post discharge speech language pathology recommendation: re-evalulate at next level of care Planned Interventions: other (see comments)(Discharge, reorder if concerns arise) Recommended Frequency: one time visit for 1 day Education Completed Dysphagia: Explain results of session, speech-language pathology role, plan of care, most s afe diet and swallow precautions Learners: Patient Readiness: Acceptance Method: Explanation and Demonstration Response: Verbalizes Understanding, Demonstrated Understanding, and Needs Reinforcement Associated attestation - Ana Roberts MA, CCC-TORCH SOLDERER - 07/24/2019 3:43 PM PDTDocumen tation and evaluation conducted by TORCH SOLDERER Student Diya Sales, was completed under the direc tion of the therapist cosigning below. I was present throughout this evaluation and/or treat ment session, and directed the interventions and plan of care noted above. I am directly res ponsible for all the treatments and interventions listed, I have reviewed this note, and I a gree with the above plan of care and goals. Plan of Care - Pamela Patrick RN - 07/24/2019 1:29 PM PDTCare Management Initial Asses sment Readmission Risk: HIGH Status Prior to Admission or Illness Arrival From: home or self-care Lives With: alone Living Arrangements: apartment Caregiver For: no one, unable/limited ability to care for self Patient s Caregiver: (pt has [facility] caregiver, 20 hrs/mo, [facility]) Functional Status: Independent, pt is independent with ADL's uses a cane with ambulation Caregiving Concerns: (CM sent ref to [facility] for incrs in pt care hrs) Home Accessibility: no concerns Transportation Available: (pt has [facility]) Able to return to prior living: yes Care Management Concerns Last discharge date: Pt admit 07/03/19 due to sepsis Readmission Within Last 30 Days: no previous admission in last 30 days Is Readmission Diagnosis Related to or Same As: no PCP: Mireya Pack NP Contact Information Family Contact Information: Name: Pt SERGEI is former mother in law Sammi Kohler [place] Needs Assessment Current Outpt/Agency/Support Groups: homecare agency (specify level of care)(pt has JOE caregiver) Community Agency Name: ([facility]) Anticipated Changes Related to Illness: pt ref sent to [facility] for increase in care coordinator hours Concerns to be Addressed: basic needs concerns(ref to [facility] for incrs in hrs) Services Anticipated at Discharge: home health care, pt has [facility], ref to [facility] Equipment Used at Home: cane, straight, single point Equipment Needed after Discharge: Same as previous Pharmacy/Medication Needs: (Rx Pharmacy) Transportation Needs: other (see comments)(pt has [facility]ON[facility]) Initial Plan Anticipated Discharge Disposition: home with assist Expected DC Date: 07/26/19 Steps Taken Toward Discharge: Initial assessment Next Steps: Contact [facility], ref to [facility] and [facility] Notes: CM spoke with patient, pt developmentally delayed. Pt resides alone in [facility] at [address], [address], [place]. Pt has [facility] caregivers 20 hrs /mo through [facility] [phone] and [facility]. Pt is independent with ADL's uses cane with ambulation. Pt has [facility] and [facility] services. Pt mother in law Sammi Kohler [phone] is POA, pt has 1 son 40 yrs age, who has disabilit y. Pt started anticoagulation, Eliquis, 07/23, no home 02, no non healing wounds. Pt likely t o d/c home with caregivers possible 07/25. Electronically signed: Pamela Patrick RN 07/24/2019 1:29 PM PDT lan of Care - Randa Vazquez, PT - 07/24/2019 12:11 PM PDTPhysical Therapy Initial Evaluation, Discharge Note Recommended discharge disposition: home Post discharge physical therapy recommendation: no further PT Equipment Recommendations: none Barriers to community-based discharge None Planned Interventions: N/A Recommended Frequency: one time visit Summary: Patient agreed to PT evaluation. He has no concerns regarding home mobility. He w as able to ambulate safely with quad cane. No adverse response to PT intervention. OK to DC home when medically stable. Living Environment Lives With: alone Living Arrangements: apartment Home Accessibility: no concerns Number of Stairs to Enter Home: 1 Number of Stairs Within Home: 0 Financial Concerns: none Transportation Available: family or friend will provide Prior Functional Level Comment: Independent Precautions Precautions/Limitations: no known precautions/limitations Cognitive Assessment Additional Documentation: follows commands/answers questions Speech: garbled, slurred Follows Commands/Answers Questions: 100% of the time Bed Mobility Additional Documentation: supine to/from sit Assistive Device: HOB elevated Supine to Sit, Level of [place]: modified independent Sit to Supine, Level of [place]: modified independent Transfers Additional Documentation: sit to/from stand Sit-Stand, Level of [place]: modified independent Stand-Sit, Level of [place]: modified independent Jme-[id number]-Thp, Assistive Device: cane (quad) Gait Level of [place]: modified independent Assistive Device: cane (quad) Distance (feet): 185 Range of Motion ROM Testing Results: no range of motion deficits identified Strength Strength Testing Results: no strength deficits were identified Balance Sitting Balance: Static: good balance Sitting Balance: Dynamic: good balance Standing Balance: Static: good balance Standing Balance: Dynamic: good balance lan of Jelena - Sanjuanita Robbins RN - 07/24/2019 9:13 AM PDT Problem: Fall Injury Risk Goal: Absence of Fall and Fall-Related Injury Outcome: Ongoing, progressing Problem: Adult Inpatient Plan of Care Goal: Plan of Care Review Outcome: Ongoing, progressing Goal: Patient-Specific Goal Outcome: Ongoing, progressing Goal: Absence of Hospital-Acquired Illness or Injury Outcome: Ongoing, progressing Goal: Optimal Comfort and Wellbeing Outcome: Ongoing, progressing Goal: Readiness for Transition of Care Outcome: Ongoing, progressing Goal: Rounds/Family Conference Outcome: Ongoing, progressing lan of Jelena - Cori Draper RN - 07/24/2019 5:33 AM PDTPt was an admit from ED around 2350. Pt A/O x4. Afeb rile. VSS. HR in the 110's, Denies nausea, vomiting, SOB or chest pain. Pt appears to be com fortable. Call light and belongings are within reach. No acute changes since previous assess ment. Will continue to monitor. lan of Jelena - Croi Quinn RN - 07/24/2019 12:17 AM PDT Problem: Fall Injury Risk Goal: Absence of Fall and Fall-Related Injury Outcome: Ongoing, progressing Intervention: Promote Injury-Free Environment Note: Staff hourly rounding completed throughout shift. Pt remains injury free at this time . Bed alarm remains in place. Non-skid footwear provided prior to ambulation. Pt educated to call for assistance when needed. Call light within reach. Will continue to monitor Problem: Adult Inpatient Plan of Care Goal: Plan of Care Review Outcome: Ongoing, progressing Flowsheets (Taken 07/24/2019 0016) Plan of Care Reviewed With: patient Note: Plan of care reviewed with patient. All questions and concerns addressed. Will contin ue to monitor. documented in this encounter Plan of Treatment +--------+---------+ + + + | Date | Type | Specialty | Care Team | Description | +--------+---------+ + + + | 09/10/ | Office | Geriatric Medicine | Mireya Pack, | | | 2019 | Visit | | [employer] [address] | | | | | | [address] [place], | | | | | | [place] [address] | | | | | | [phone] | | | | | | | | +--------+---------+ + + + | 09/29/ | Office | Urology | Mireya Pack, | | | 2019 | Visit | | [employer] [address] | | | | | | [address] [place], | | | | | | [place] [address] | | | | | | [phone] | | | | | | | | | | | | [place], | | | | | | [address] | | | | | | [place] [address] | | | | | | [phone] | | | | | | | | +--------+---------+ + + + + +------+--------+ + + | Name | Type | Priori | Associated Diagnoses | Date/Time | | | | ty | | | + +------+--------+ + + | ED INFORMATION | [facility]TON | Routin | | 07/23/2019 3:47 PM | | EXCHANGE | | e | | PDT | + +------+--------+ + + documented as of this encounter Procedures + +--------+ + + + | Procedure Name | Priori | Date/Time | Associated Diagnosis | Comments | | | ty | | | | + +--------+ + + + | POC GLUCOSE (NON | Routin | 07/26/2019 | | Results for this | | ORD) | e | 6:08 AM | | procedure are in the | | | | PDT | | results section. | + +--------+ + + + | MAGNESIUM | Routin | 07/26/2019 | | Results for this | | | e | 5:19 AM | | procedure are in the | | | | PDT | | results section. | + +--------+ + + + | RENAL FUNCTION PANEL | Routin | 07/26/2019 | | Results for this | | | e | 5:19 AM | | procedure are in the | | | | PDT | | results section. | + +--------+ + + + | POC GLUCOSE (NON | Routin | 07/25/2019 | | Results for this | | ORD) | e | 8:04 PM | | procedure are in the | | | | PDT | | results section. | + +--------+ + + + | POC GLUCOSE (NON | Routin | 07/25/2019 | | Results for this | | ORD) | e | 3:56 PM | | procedure are in the | | | | PDT | | results section. | + +--------+ + + + | TROPONIN I | Timed | 07/25/2019 | | Results for this | | | | 1:12 PM | | procedure are in the | | | | PDT | | results section. | + +--------+ + + + | POC GLUCOSE (NON | Routin | 07/25/2019 | | Results for this | | ORD) | e | 11:11 AM | | procedure are in the | | | | PDT | | results section. | + +--------+ + + + | ECG 12 LEAD | STAT | 07/25/2019 | | Results for this | | | | 9:27 AM | | procedure are in the | | | | PDT | | results section. | + +--------+ + + + | TROPONIN I | Timed | 07/25/2019 | | Results for this | | | | 9:26 AM | | procedure are in the | | | | PDT | | results section. | + +--------+ + + + | POC GLUCOSE (NON | Routin | 07/25/2019 | | Results for this | | ORD) | e | 6:09 AM | | procedure are in the | | | | PDT | | results section. | + +--------+ + + + | CBC WITH | Routin | 07/25/2019 | | Results for this | | DIFFERENTIAL | e | 5:49 AM | | procedure are in the | | | | PDT | | results section. | + +--------+ + + + | MAGNESIUM | Routin | 07/25/2019 | | Results for this | | | e | 5:49 AM | | procedure are in the | | | | PDT | | results section. | + +--------+ + + + | HEMOGLOBIN A1C | Routin | 07/25/2019 | | Results for this | | | e | 5:49 AM | | procedure are in the | | | | PDT | | results section. | + +--------+ + + + | RENAL FUNCTION PANEL | Routin | 07/25/2019 | | Results for this | | | e | 5:49 AM | | procedure are in the | | | | PDT | | results section. | + +--------+ + + + | ECG 12 LEAD | STAT | 07/24/2019 | | Results for this | | | | 11:54 PM | | procedure are in the | | | | PDT | | results section. | + +--------+ + + + | POC GLUCOSE (NON | Routin | 07/24/2019 | | Results for this | | ORD) | e | 8:50 PM | | procedure are in the | | | | PDT | | results section. | + +--------+ + + + | POC GLUCOSE (NON | Routin | 07/24/2019 | | Results for this | | ORD) | e | 4:14 PM | | procedure are in the | | | | PDT | | results section. | + +--------+ + + + | POC GLUCOSE (NON | Routin | 07/24/2019 | | Results for this | | ORD) | e | 11:19 AM | | procedure are in the | | | | PDT | | results section. | + +--------+ + + + | POC GLUCOSE (NON | Routin | 07/24/2019 | | Results for this | | ORD) | e | 6:28 AM | | procedure are in the | | | | PDT | | results section. | + +--------+ + + + | CBC WITH | Routin | 07/24/2019 | | Results for this | | DIFFERENTIAL | e | 5:40 AM | | procedure are in the | | | | PDT | | results section. | + +--------+ + + + | MAGNESIUM | Routin | 07/24/2019 | | Results for this | | | e | 5:40 AM | | procedure are in the | | | | PDT | | results section. | + +--------+ + + + | BASIC METABOLIC | Routin | 07/24/2019 | | Results for this | | PANEL | e | 5:40 AM | | procedure are in the | | | | PDT | | results section. | + +--------+ + + + | POC GLUCOSE (NON | Routin | 07/24/2019 | | Results for this | | ORD) | e | 2:24 AM | | procedure are in the | | | | PDT | | results section. | + +--------+ + + + | LEGIONELLA AG, EIA, | Routin | 07/23/2019 | | Results for this | | QUAL, URINE | e | 11:36 PM | | procedure are in the | | | | PDT | | results section. | + +--------+ + + + | CORONAVIRUS | Routin | 07/23/2019 | | Results for this | | (COVID-19) NAAT | e | 7:49 PM | | procedure are in the | | | | PDT | | results section. | + +--------+ + + + | CT ABDOMEN PELVIS W | [facility] | 07/23/2019 | | Results for this | | CONTRAST | | 6:33 PM | | procedure are in the | | | | PDT | | results section. | + +--------+ + + + | CT HEAD WO CONTRAST | [facility] | 07/23/2019 | | Results for this | | | | 6:31 PM | | procedure are in the | | | | PDT | | results section. | + +--------+ + + + | CULTURE, BLOOD | STAT | 07/23/2019 | | Results for this | | | | 5:57 PM | | procedure are in the | | | | PDT | | results section. | + +--------+ + + + | TROPONIN I | STAT | 07/23/2019 | | Results for this | | | | 5:49 PM | | procedure are in the | | | | PDT | | results section. | + +--------+ + + + | PROTIME INR | STAT | 07/23/2019 | | Results for this | | | | 5:49 PM | | procedure are in the | | | | PDT | | results section. | + +--------+ + + + | CBC WITH | STAT | 07/23/2019 | | Results for this | | DIFFERENTIAL | | 5:49 PM | | procedure are in the | | | | PDT | | results section. | + +--------+ + + + | B TYPE NATRIURETIC | Routin | 07/23/2019 | | Results for this | | PEPTIDE | e | 5:49 PM | | procedure are in the | | | | PDT | | results section. | + +--------+ + + + | COMPREHENSIVE | STAT | 07/23/2019 | | Results for this | | METABOLIC PANEL | | 5:49 PM | | procedure are in the | | | | PDT | | results section. | + +--------+ + + + | CULTURE, BLOOD | STAT | 07/23/2019 | | Results for this | | | | 5:48 PM | | procedure are in the | | | | PDT | | results section. | + +--------+ + + + | URINALYSIS WITH | STAT | 07/23/2019 | | Results for this | | MICROSCOPIC | | 5:23 PM | | procedure are in the | | | | PDT | | results section. | + +--------+ + + + | CULTURE, URINE | Add-On | 07/23/2019 | | Results for this | | | | 5:23 PM | | procedure are in the | | | | PDT | | results section. | + +--------+ + + + | XR CHEST AP PORTABLE | [facility] | 07/23/2019 | | Results for this | | | | 5:13 PM | | procedure are in the | | | | PDT | | results section. | + +--------+ + + + | ECG 12 LEAD | Routin | 07/23/2019 | | Results for this | | | e | 3:54 PM | | procedure are in the | | | | PDT | | results section. | + +--------+ + + + | ED INFORMATION | Routin | 07/23/2019 | | | | EXCHANGE | e | 3:47 PM | | | | | | PDT | | | + +--------+ + + + +---+--------+ | | | | | Proced | | | ure | | | Note - | | | Richard, | | | Lab In | | | | | | Hlseve | | | n - | | | | | 2019 | | | 3:48 | | | PM PDT | | | | | | [...] | | | FICATI | | | ON?06/ | | | 16/202 | | | 0 | | | 15:46? | | | GR, | | | NORAH | | | | | | M?MRN: | | | | | | [id number] | | | [id number] | | | riteri | | | a Met | | | | | | Medica | | | id 5 | | | in 12 | | | 10 in | | | 12 | | | COVID- | | | 19 | | | Pendin | | | g Lab | | | Result | | | s | | | PDMP | | | [...] | | | ing | | | care.F | | | lags | | | Pendin | | | g | | | COVID- | | | 19 Lab | | | | | | Result | | | - | | | Provid | | | ence - | | | A | | | specim | | | en was | | | | | | collec | | | tasia | | | from | | | this | | | patien | | | t for | | | COVID- | | | 19, | | | result | | | s | | | pendin | | | g / | | | Attrib | | | uted | | | By: | | | Provid | | | ence_ | | | / | | | Attrib | | | uted | | | On: | | | 06/16/ | | | 2020 | | | Prescr | | | iption | | | Drug | | | [...] | | MG 30 | | | MIREYA | | | A | | | [...] | | II-V | | | Rx 4 | | | CS-II | | | Rx 3 | | | Quanti | | | ty | | | Dispen | | | sed 87 | | | | | | Unique | | | | | | Prescr | | | ibers | | | 3 | | | Unique | | | | | | Pharma | | | cies 2 | | | | | | Benzos | | | 1 | | | Opioid | | | s 3 | | | Long | | | [...] | | | Center | | | 22 0 | | | [place] | | | s | | | Medica | | | l | | | Center | | | 6 0 | | | [facility] | | | sd | | | Commun | | | ity | | | Hospit | | | al 1 0 | | | [facility] | | [place] | | | y | | | Hospit | | | al 1 0 | | | Total | | | 32 0 | | | Note: | | [...] | | out | | | of 32 | | | in the | | [...] | | | St. | | | [place] | | | y H. | | [...] | | insuli | | | n Mar | | | 7, | | [...] | | | ) | | | Hyperg | | | lycemi | | | a, | | | unspec | | | ified | | | Feb | | | 27, | | | 2020 | | | [facility] | | | | | | Region | | | al | | | [facility] | | | [place] | | | [place] | | | Emerge | | | ncy | | | Chest | | | Pain | | | | | | Chest [...] | | | St. | | | [place] | | | y H. 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 | | | tioner | | | : | | | Geront | | | ology | | | Mar | | | 1, | | | 2020 - | | | | | | Curren [...] | | | /notif | | | [id number] | | | [id number] | | | [id number] | | | [id number] | | | [id number] | | | [id number] | | | 2e | | | PLEASE | | | [...] documented in this encounter Results POC Glucose (07/26/2019 6:08 AM PDT) + + + + + + | Component | Value | Ref Range | Performed | Pathologist | | | | | At | Signature | + + + + + + | Glucose, | 96Comment: Testing | 65 - 99 mg/dL | [place] | | | POC | performed at [facility];[address] | | LABORATORY | | | | [address];[place] | | | | | | [address] | | | | + + + + + + + + | Specimen | + + | | + + + + + + + | Performing | Address | City/State/Zipcode | Phone Number | | Organization | | | | + + + + + | [facility] | [address] | [place] [address] | [phone] | + + + + + Magnesium (07/26/2019 5:19 AM PDT) + + + + + + | Component | Value | Ref Range | Performed | Pathologist | | | | | At | Signature | + + + + + + | Magnesium | 1.9Comment: Testing | 1.7 - 2.4 mg/dL | [facility] | | | | performed at [facility];[address] | | LABORATORY | | | | [address];[place] | | | | | | [address] | | | | + + + + + + + + | Specimen | + + | | + + + + + + + | Performing | Address | City/State/Zipcode | Phone Number | | Organization | | | | + + + + + | [facility] | [address] | [place] [address] | [phone] | + + + + + Renal Function Panel (07/26/2019 5:19 AM PDT) + + + + + + | Component | Value | Ref Range | Performed | Pathologist | | | | | At | Signature | + + + + + + | Na | 141 | 135 - 145 | [facility] | | | | | mmol/L | LABORATORY | | + + + + + + | K | 3.7 | 3.5 - 4.9 | [facility] | | | | | mmol/L | LABORATORY | | + + + + + + | Cl | 109 | 99 - 109 mmol/L | [facility] | | | | | | LABORATORY | | + + + + + + | CO2 | 26 | 23 - 32 mmol/L | [facility] | | | | | | LABORATORY | | + + + + + + | Anion Gap | 10 | 5 - 20 mmol/L | [facility] | | | | | | LABORATORY | | + + + + + + | Glucose | 87 | 65 - 99 mg/dL | [facility] | | | | | | LABORATORY | | + + + + + + | BUN | 15 | 8 - 25 mg/dL | [facility] | | | | | | LABORATORY | | + + + + + + | Creatinine | 0.90 | 0.70 - 1.30 | [facility] | | | | | mg/dL | LABORATORY | | + + + + + + | Calcium | 8.7 | 8.5 - 10.5 | [facility] | | | | | mg/dL | LABORATORY | | + + + + + + | Albumin | 2.3 (L) | 3.3 - 4.8 g/dL | [facility] | | | | | | LABORATORY | | + + + + + + | Phosphorus | 4.0 | 2.3 - 4.8 mg/dL | [facility] | | | | | | LABORATORY | | + + + + + + | Estimated | >60Comment: GFR <60: | >60 | [facility] | | | GFR | [...] | | | | | | MDRD IDSD traceable | | | | | | equation.Testing | | | | | | performed at [facility], [address] | | | | | | [facility], | | | | | | [place] [address] | | | | + + + + + + + + | Specimen | + + | Blood | + + + + + + + | Performing | Address | City/State/Zipcode | Phone Number | | Organization | | | | + + + + + | [facility] | [address] | [place] [address] | [phone] | + + + + + POC Glucose (07/25/2019 8:04 PM PDT) + + + + + + | Component | Value | Ref Range | Performed | Pathologist | | | | | At | Signature | + + + + + + | Glucose, | 160 (H)Comment: Testing | 65 - 99 mg/dL | [facility] | | | POC | performed at [facility];[address] | | LABORATORY | | | | [address];[place] | | | | | | [address] | | | | + + + + + + + + | Specimen | + + | | + + + + + + + | Performing | Address | City/State/Zipcode | Phone Number | | Organization | | | | + + + + + | [facility] | [address] | [place] [address] | [phone] | + + + + + POC Glucose (07/25/2019 3:56 PM PDT) + + + + + + | Component | Value | Ref Range | Performed | Pathologist | | | | | At | Signature | + + + + + + | Glucose, | 245 (H)Comment: Testing | 65 - 99 mg/dL | [facility] | | | POC | performed at [facility];[address] | | LABORATORY | | | | [address];[place], [place] | | | | | | [address] | | | | + + + + + + + + | Specimen | + + | | + + + + + + + | Performing | Address | City/State/Zipcode | Phone Number | | Organization | | | | + + + + + | [facility] | [address] | [place] [address] | [phone] | + + + + + Troponin I (07/25/2019 1:12 PM PDT) + + + + + + | Component | Value | Ref Range | Performed | Pathologist | | | | | At | Signature | + + + + + + | Troponin I | 0.01Comment: 0.04 | 0.00 - 0.04 | [facility] | | | | ng/mL [...] at | | | | | | [facility];[address] [place] [address] | | | | | | [facility];[place] [address] | | | | + + + + + + + + | Specimen | + + | Blood | + + + + + + + | Performing | Address | City/State/Zipcode | Phone Number | | Organization | | | | + + + + + | [facility] | [address] | [place] [address] | [phone] | + + + + + POC Glucose (07/25/2019 11:11 AM PDT) + + + + + + | Component | Value | Ref Range | Performed | Pathologist | | | | | At | Signature | + + + + + + | Glucose, | 163 (H)Comment: Testing | 65 - 99 mg/dL | [facility] | | | POC | performed at [facility];[address] | | LABORATORY | | | | [address];[place] | | | | | | [address] | | | | + + + + + + + + | Specimen | + + | | + + + + + + + | Performing | Address | City/State/Zipcode | Phone Number | | Organization | | | | + + + + + | [facility] | [address] | [place] [address] | [phone] | + + + + + ECG 12 lead (07/25/2019 9:27 AM PDT) + + + + + + | Component | Value | Ref Range | Performed | Pathologist | | | | | At | Signature | + + + + + + | VENTRICULAR | 96 | BPM | [facility] | | | RATE EKG | | | | | + + + + + + | ATRIAL RATE | 234 | BPM | [facility] | | + + + + + + | QRS | 88 | ms | [facility] | | | DURATION | | | | | + + + + + + | Q-T | 374 | ms | [facility] | | | INTERVAL | | | | | + + + + + + | Q-T | 472 | ms | [facility] | | | INTERVAL | | | | | | (CORRECTED) | | | | | + + + + + + | QRS AXIS | 58 | degrees | [facility] | | + + + + + + | T AXIS | 52 | degrees | [facility] | | + + + + + + | INTERPRETAT | Atrial | | [facility] | | | ION TEXT | fibrillationNonspecific | | | | | | T wave | | | | | | abnormalityProlonged | | | | | | QTAbnormal ECGWhen | | | | | | compared with ECG of | | | | | | 24-JUL-2019 | | | | | | 23:54,Nonspecific T wave | | | | | | abnormality, worse in | | | | | | Inferior leadsConfirmed | | | | | | by VINCENT GONZALEZ MD ([id number]) | | | | | | on 07/26/2019 3:06:05 PM | | | | | | | [...] | | | + +---------+ + + Troponin I (07/25/2019 9:26 AM PDT) + + + + + + | Component | Value | Ref Range | Performed | Pathologist | | | | | At | Signature | + + + + + + | Troponin I | 0.009Comment: 0.04 | 0.00 - 0.04 | [facility] | | | | ng/mL or less [...] at | | | | | | [facility];[address] [facility] | | | | | | [facility];[place] [address] | | | | + + + + + + + + | Specimen | + + | Blood | + + + + + + + | Performing | Address | City/State/Zipcode | Phone Number | | Organization | | | | + + + + + | [facility] | [address] | [place] [address] | [phone] | + + + + + POC Glucose (07/25/2019 6:09 AM PDT) + + + + + + | Component | Value | Ref Range | Performed | Pathologist | | | | | At | Signature | + + + + + + | Glucose, | 128 (H)Comment: Testing | 65 - 99 mg/dL | [facility] | | | POC | performed at [facility];[address] | | LABORATORY | | | | [address];[place] | | | | | | [address] | | | | + + + + + + + + | Specimen | + + | | + + + + + + + | Performing | Address | City/State/Zipcode | Phone Number | | Organization | | | | + + + + + | [facility] | [address] | [place] [address] | [phone] | + + + + + Renal Function Panel (07/25/2019 5:49 AM PDT) + + + + + + | Component | Value | Ref Range | Performed | Pathologist | | | | | At | Signature | + + + + + + | Na | 140 | 135 - 145 | [facility] | | | | | mmol/L | LABORATORY | | + + + + + + | K | 3.9 | 3.5 - 4.9 | [facility] | | | | | mmol/L | LABORATORY | | + + + + + + | Cl | 108 | 99 - 109 mmol/L | [facility] | | | | | | LABORATORY | | + + + + + + | CO2 | 26 | 23 - 32 mmol/L | [facility] | | | | | | LABORATORY | | + + + + + + | Anion Gap | 10 | 5 - 20 mmol/L | [facility] | | | | | | LABORATORY | | + + + + + + | Glucose | 135 (H) | 65 - 99 mg/dL | [facility] | | | | | | LABORATORY | | + + + + + + | BUN | 14 | 8 - 25 mg/dL | [facility] | | | | | | LABORATORY | | + + + + + + | Creatinine | 0.80 | 0.70 - 1.30 | [facility] | | | | | mg/dL | LABORATORY | | + + + + + + | Calcium | 8.7 | 8.5 - 10.5 | [facility] | | | | | mg/dL | LABORATORY | | + + + + + + | Albumin | 2.4 (L) | 3.3 - 4.8 g/dL | [facility] | | | | | | LABORATORY | | + + + + + + | Phosphorus | 3.9 | 2.3 - 4.8 mg/dL | [facility] | | | | | | LABORATORY | | + + + + + + | Estimated | >60Comment: GFR <60: | >60 | [facility] | | | GFR | CHRONIC KIDNEY [...] | | | | | | MDRD [facility] traceable | | | | | | equation.Testing | | | | | | performed at [facility], [address] | | | | | | [facility], | | | | | | [place] [address] | | | | + + + + + + + + | Specimen | + + | Blood | + + + + + + + | Performing | Address | City/State/Zipcode | Phone Number | | Organization | | | | + + + + + | [facility] | [address] | [place] [address] | [phone] | + + + + + Magnesium (07/25/2019 5:49 AM PDT) + + + + + + | Component | Value | Ref Range | Performed | Pathologist | | | | | At | Signature | + + + + + + | Magnesium | 1.9Comment: Testing | 1.7 - 2.4 mg/dL | [facility] | | | | performed at [facility];[address] | | LABORATORY | | | | [address];[place] | | | | | | [address] | | | | + + + + + + + + | Specimen | + + | Blood | + + + + + + + | Performing | Address | City/State/Zipcode | Phone Number | | Organization | | | | + + + + + | [facility] | [address] | [place] [address] | [phone] | + + + + + CBC with Differential (07/25/2019 5:49 AM PDT) + + + + + + | Component | Value | Ref Range | Performed | Pathologist | | | | | At | Signature | + + + + + + | WBC | 10.34 | 3.80 - 11.00 | [facility] | | | | | K/uL | LABORATORY | | + + + + + + | Red Blood | 4.62 | 4.20 - 5.70 | [facility] | | | Cells | | M/uL | LABORATORY | | + + + + + + | Hemoglobin | 12.4 (L) | 13.2 - 17.0 | [facility] | | | | | g/dL | LABORATORY | | + + + + + + | Hematocrit | 38.4 (L) | 39.0 - 50.0 % | [facility] | | | | | | LABORATORY | | + + + + + + | MCV | 83.1 | 80.0 - 100.0 fl | [facility] | | | | | | LABORATORY | | + + + + + + | MCH | 26.8 (L) | 27.0 - 34.0 pg | [facility] | | | | | | LABORATORY | | + + + + + + | MCHC | 32.3 | 32.0 - 35.5 | [facility] | | | | | g/dL | LABORATORY | | + + + + + + | RDW-SD | 42.5 | 37 - 53 fl | [facility] | | | | | | LABORATORY | | + + + + + + | Platelet | 261 | 150 - 400 K/uL | [facility] | | | Count | | | LABORATORY | | + + + + + + | MPV | 10.3Comment: NO NORMAL | fl | [facility] | [...] + + + + | % | 58.50 | % | [facility] | | | Neutrophils | | | LABORATORY | | + + + + + + | IMMATURE | 0.60 | % | [facility] | | | GRANULOCYTE | | | LABORATORY | | + + + + + + | % | 26.00 | % | [facility] | | | Lymphocytes | | | LABORATORY | | + + + + + + | Monocyte % | 11.00 | % | [facility] | | | | | | LABORATORY | | + + + + + + | Eosinophils | 3.60 | % | [facility] | | | % | | | LABORATORY | | + + + + + + | Basophils % | 0.30 | % | [facility] | | | | | | LABORATORY | | + + + + + + | Neutrophils | 6.05 | 1.90 - 7.40 | [facility] | | | , Absolute | | K/uL | LABORATORY | | + + + + + + | IMMATURE | 0.06Comment: NOTE NEW | 0.00 - 0.07 | [facility] | | | GRANS AB | REFERENCE RANGE | K/uL | LABORATORY | | + + + + + + | Absolute | 2.69 | 1.00 - 3.90 | [facility] | | | Lymphocytes | | K/uL | LABORATORY | | + + + + + + | Absolute | 1.14 (H) | 0.00 - 0.80 | [facility] | | | Monocytes | | K/uL | LABORATORY | | + + + + + + | Eosinophils | 0.37 | 0.00 - 0.50 | [facility] | | | , Absolute | | K/uL | LABORATORY | | + + + + + + | Basophils, | 0.03Comment: Testing | 0.00 - 0.10 | [facility] | | | Absolute | performed at [facility], [address] | K/uL | LABORATORY | | | | [address], | | | | | | [place] [address] | | | | + + + + + + + + | Specimen | + + | Blood | + + + + + + + | Performing | Address | City/State/Zipcode | Phone Number | | Organization | | | | + + + + + | [facility] | [address] | [place] [address] | [phone] | + + + + + Hemoglobin A1C (07/25/2019 5:49 AM PDT) + + + + + + | Component | Value | Ref Range | Performed | Pathologist | | | | | At | Signature | + + + + + + | Hemoglobin | 8.9 (H)Comment: | 4.8 - 5.6 % | [facility] | | | A1c | Prediabetes: 5.7 - | | LABORATORY | | | | 6.4 Diabetes: | | | | | | >6.4 | | | | | | Glycemic control for | | | | | | adults with diabetes: | | | | | | <7.0Testing performed at | | | | | | [facility], [address], | | | | | | [place] [address], [facility] | | | | | | [address] | | | | + + + + + + + + | Specimen | + + | Blood | + + + + + + + | Performing | Address | City/State/Zipcode | Phone Number | | Organization | | | | + + + + + | [facility] | [address] | [place] [address] | [phone] | + + + + + ECG 12 lead (07/24/2019 11:54 PM PDT) + + + + + + | Component | Value | Ref Range | Performed | Pathologist | | | | | At | Signature | + + + + + + | VENTRICULAR | 95 | BPM | [facility] | | | RATE EKG | | | | | + + + + + + | ATRIAL RATE | 220 | BPM | [facility] | | + + + + + + | QRS | 88 | ms | [facility] | | | DURATION | | | | | + + + + + + | Q-T | 380 | ms | [facility] | | | INTERVAL | | | | | + + + + + + | Q-T | 477 | ms | [facility] | | | INTERVAL | | | | | | (CORRECTED) | | | | | + + + + + + | QRS AXIS | 46 | degrees | [facility] | | + + + + + + | T AXIS | 76 | degrees | [facility] | | + + + + + + | INTERPRETAT | Atrial | | [facility] | | | ION TEXT | fibrillationNonspecific | | | | | | T wave | | | | | | abnormalityProlonged | | | | | | QTAbnormal ECGWhen | | | | | | compared with ECG of | | | | | | 23-JUL-2019 15:54,Atrial | | | | | | fibrillation has | | | | | | replaced Sinus | | | | | | rhythmNon-specific | | | | | | change in ST segment in | | | | | | Anterior | | | | | | leadsNonspecific T wave | | | | | | abnormality, improved in | | | | | | Inferior leadsQT has | | | | | | lengthenedConfirmed by | | | | | | VINCENT GONZALEZ MD ([id number]) on | | | | | | 07/26/2019 2:51:01 PM | | | | + + [...] | | | + +---------+ + + POC Glucose (07/24/2019 8:50 PM PDT) + + + + + + | Component | Value | Ref Range | Performed | Pathologist | | | | | At | Signature | + + + + + + | Glucose, | 185 (H)Comment: Testing | 65 - 99 mg/dL | [facility] | | | POC | performed at [facility];[address] | | LABORATORY | | | | [address];[place], [place] | | | | | | [address] | | | | + + + + + + + + | Specimen | + + | | + + + + + + + | Performing | Address | City/State/Zipcode | Phone Number | | Organization | | | | + + + + + | [facility] | [address] | [place] [address] | [phone] | + + + + + POC Glucose (07/24/2019 4:14 PM PDT) + + + + + + | Component | Value | Ref Range | Performed | Pathologist | | | | | At | Signature | + + + + + + | Glucose, | 223 (H)Comment: Testing | 65 - 99 mg/dL | [facility] | | | POC | performed at [facility];[address] | | LABORATORY | | | | [address];[place] | | | | | | [address] | | | | + + + + + + + + | Specimen | + + | | + + + + + + + | Performing | Address | City/State/Zipcode | Phone Number | | Organization | | | | + + + + + | [facility] | [address] | [place] [address] | [phone] | + + + + + POC Glucose (07/24/2019 11:19 AM PDT) + + + + + + | Component | Value | Ref Range | Performed | Pathologist | | | | | At | Signature | + + + + + + | Glucose, | 261 (H)Comment: Testing | 65 - 99 mg/dL | [facility] | | | POC | performed at [facility];[address] | | LABORATORY | | | | [address];[place] | | | | | | [address] | | | | + + + + + + + + | Specimen | + + | | + + + + + + + | Performing | Address | City/State/Zipcode | Phone Number | | Organization | | | | + + + + + | [facility] | [address] | [place] [address] | [phone] | + + + + + POC Glucose (07/24/2019 6:28 AM PDT) + + + + + + | Component | Value | Ref Range | Performed | Pathologist | | | | | At | Signature | + + + + + + | Glucose, | 224 (H)Comment: Testing | 65 - 99 mg/dL | [facility] | | | POC | performed at [facility];[address] | | LABORATORY | | | | [address];[place] | | | | | | [address] | | | | + + + + + + + + | Specimen | + + | | + + + + + + + | Performing | Address | City/State/Zipcode | Phone Number | | Organization | | | | + + + + + | [facility] | [address] | [place] [address] | [phone] | + + + + + Magnesium (07/24/2019 5:40 AM PDT) + + + + + + | Component | Value | Ref Range | Performed | Pathologist | | | | | At | Signature | + + + + + + | Magnesium | 1.8Comment: Testing | 1.7 - 2.4 mg/dL | [facility] | | | | performed at [facility];[address] | | LABORATORY | | | | [address];[place], [place] | | | | | | [address] | | | | + + + + + + + + | Specimen | + + | Blood | + + + + + + + | Performing | Address | City/State/Zipcode | Phone Number | | Organization | | | | + + + + + | [facility] | [address] | [place] [address] | [phone] | + + + + + CBC with Differential (07/24/2019 5:40 AM PDT) + + + + + + | Component | Value | Ref Range | Performed | Pathologist | | | | | At | Signature | + + + + + + | WBC | 11.09 (H) | 3.80 - 11.00 | [facility] | | | | | K/uL | LABORATORY | | + + + + + + | Red Blood | 4.48 | 4.20 - 5.70 | [facility] | | | Cells | | M/uL | LABORATORY | | + + + + + + | Hemoglobin | 12.2 (L) | 13.2 - 17.0 | [facility] | | | | | g/dL | LABORATORY | | + + + + + + | Hematocrit | 37.0 (L) | 39.0 - 50.0 % | [facility] | | | | | | LABORATORY | | + + + + + + | MCV | 82.6 | 80.0 - 100.0 fl | [facility] | | | | | | LABORATORY | | + + + + + + | MCH | 27.2 | 27.0 - 34.0 pg | [facility] | | | | | | LABORATORY | | + + + + + + | MCHC | 33.0 | 32.0 - 35.5 | [facility] | | | | | g/dL | LABORATORY | | + + + + + + | RDW-SD | 41.8 | 37 - 53 fl | [facility] | | | | | | LABORATORY | | + + + + + + | Platelet | 244 | 150 - 400 K/uL | [facility] | | | Count | | | LABORATORY | | + + + + + + | MPV | 10.3Comment: NO NORMAL | fl | [facility] | [...] + + + + | % | 69.10 | % | [facility] | | | Neutrophils | | | LABORATORY | | + + + + + + | IMMATURE | 0.60 | % | [facility] | | | GRANULOCYTE | | | LABORATORY | | + + + + + + | % | 20.20 | % | [facility] | | | Lymphocytes | | | LABORATORY | | + + + + + + | Monocyte % | 8.70 | % | [facility] | | | | | | LABORATORY | | + + + + + + | Eosinophils | 1.20 | % | [facility] | | | % | | | LABORATORY | | + + + + + + | Basophils % | 0.20 | % | [facility] | | | | | | LABORATORY | | + + + + + + | Neutrophils | 7.67 (H) | 1.90 - 7.40 | [facility] | | | , Absolute | | K/uL | LABORATORY | | + + + + + + | IMMATURE | 0.07Comment: NOTE NEW | 0.00 - 0.07 | [facility] | | | GRANS AB | REFERENCE RANGE | K/uL | LABORATORY | | + + + + + + | Absolute | 2.24 | 1.00 - 3.90 | [facility] | | | Lymphocytes | | K/uL | LABORATORY | | + + + + + + | Absolute | 0.96 (H) | 0.00 - 0.80 | [facility] | | | Monocytes | | K/uL | LABORATORY | | + + + + + + | Eosinophils | 0.13 | 0.00 - 0.50 | [facility] | | | , Absolute | | K/uL | LABORATORY | | + + + + + + | Basophils, | 0.02Comment: Testing | 0.00 - 0.10 | [facility] | | | Absolute | performed at [facility], [address] | K/uL | LABORATORY | | | | [address], | | | | | | [place] [address] | | | | + + + + + + + + | Specimen | + + | Blood | + + + + + + + | Performing | Address | City/State/Zipcode | Phone Number | | Organization | | | | + + + + + | [facility] | [address] | [place] [address] | [phone] | + + + + + Basic Metabolic Panel (07/24/2019 5:40 AM PDT) + + + + + + | Component | Value | Ref Range | Performed | Pathologist | | | | | At | Signature | + + + + + + | Na | 137 | 135 - 145 | [facility] | [...] + + + | Anion Gap | 10 | 5 - 20 mmol/L | [facility] | | | | | | LABORATORY | | + + + + + + | Glucose | 213 (H) | 65 - 99 mg/dL | [facility] | | | | | | LABORATORY | | + + + + + + | BUN | 13 | 8 - 25 mg/dL | [facility] | | | | | | LABORATORY | | + + + + + + | Creatinine | 0.70 | 0.70 - 1.30 | [facility] | | | | | mg/dL | LABORATORY | | + + + + + + | BUN/Creatin | 19 | | [facility] | | | ine Ratio | | | LABORATORY | | + + + + + + | Calcium | 8.6 | 8.5 - 10.5 | [facility] | [...] | | | | | performed at [facility], [address] | | | | | | [address], | | | | | | [place] [address] | | | | + + + + + + + + | Specimen | + + | Blood | + + + + + + + | Performing | Address | City/State/Zipcode | Phone Number | | Organization | | | | + + + + + | [facility] | [address] | [place] [address] | [phone] | + + + + + POC Glucose (07/24/2019 2:24 AM PDT) + + + + + + | Component | Value | Ref Range | Performed | Pathologist | | | | | At | Signature | + + + + + + | Glucose, | 293 (H)Comment: Testing | 65 - 99 mg/dL | [facility] | | | POC | performed at [facility];[address] | | LABORATORY | | | | [address];[place], [place] | | | | | | [address] | | | | + + + + + + + + | Specimen | + + | | + + + + + + + | Performing | Address | City/State/Zipcode | Phone Number | | Organization | | | | + + + + + | [facility] | [address] | [place] [address] | [phone] | + + + + + Legionella, Ag, EIA, Qual, Urine (07/23/2019 11:36 PM PDT) + + + + + + | Component | Value | Ref Range | Performed | Pathologist | | | | | At | Signature | + + + + + + | L. | NegativeComment: | Negative | [facility] | | | pneumophila | Presumptive negative for | | LABORATORY | | | Serogp 1 | L. pneumophila | | | | | Ur Ag | serogroup 1 antigen in | | | | | | urine,suggesting no | | | | | | recent or current | | | | | | infection. Legionnaires' | | | | | | diseasecannot be ruled | | | | | | out since other | | | | | | serogroups and species | | | | | | may alsocause | | | | | | disease.Testing | | | | | | performed at [facility], | | | | | | [address], [address], | | | | | | [facility] [address] | | | | + + + + + + + + | Specimen | + + | Urine - Urine | | specimen obtained by | | clean catch | | procedure (specimen) | + + + + + + + | Performing | Address | City/State/Zipcode | Phone Number | | Organization | | | | + + + + + | [facility] | [address] | [place] [address] | [phone] | + + + + + Coronavirus (COVID-19) NAAT (07/23/2019 7:49 PM PDT) + + + + + + | Component | Value | Ref Range | Performed | Pathologist | | | | | At | Signature | + + + + + + | SARS-CoV-2, | NEGATIVEComment: This | NEG | [facility] | | | NAAT | test was developed and | | LABORATORY | | | (COVID-19) | its performance | | | | | | characteristics | | | | | | determined by[employer]. It | | | | | | has not been cleared or | | | | | | approved by the [place] FDA. | | | | | | This test has | | | | | | beenauthorized by FDA | | | | | | under an Emergency Use | | | | | | Authorization (EUSA)). | | | | | | Cliniciansshould be | | | | | | advised to consider a | | | | | | patients signs, | | | | | | symptoms, history, and | | | | | | resultsof other | | | | | | diagnostic test when | | | | | | interpreting | | | | | | results.Testing | | | | | | performed at [facility] | | | | | | [address];[place] | | | | | | [id number] | | | | + + + + + + + + | Specimen | + + | Tissue - Entire | | nasopharynx (body | | structure) | + + + + + + + | Performing | Address | City/State/Zipcode | Phone Number | | Organization | | | | + + + + + | [facility] | [address] | [place] [address] | [phone] | + + + + + CT Abdomen Pelvis w Contrast (07/23/2019 6:33 PM PDT) + + | Specimen | + + | | + + + + + | Impressions | Performed At | + + + | 1. New ground-glass opacities in right lower lobe. Differential | [facility] | | diagnosis includes aspiration, viral pneumonia, and bacterial | | | pneumonia. 2. No acute findings within the abdomen or pelvis. | | | Signed by: Irina Arrington, P[employer] Sign Date/Time: 07/23/2019 6:44 PM | | | | | + + + + + + | Narrative | Performed At | + + + | CT ABDOMEN AND PELVIS WITH CONTRAST CLINICAL INFORMATION: | [facility] | | Abdominal pain and constipation COMPARISON: CT ANGIOGRAM | | | PULMONARY W CONTRAST (07/03/2019); CT ABDOMEN PELVIS W CONTRAST | | | (02/25/2016); CT ABDOMEN PELVIS WO CONTRAST (04/28/2014); PROCEDURE: | | | Axial images through the abdomen and pelvis after the administration | | | of 100 ml omnipaque 350 intravenous contrast. Multiplanar | | | reconstructions. At least one of the following CT dose | | | optimization techniques were used: Automated exposure control; | | | Adjustment of mA and/or kV according to patient size; Use of | | | iterative reconstruction technique. FINDINGS: LUNG BASES: | | | Ground-glass opacities in right lower lobe are new compared to | | | 07/03/2019. No pleural effusion or pneumothorax. ABDOMEN Liver | | | and Biliary: No biliary abnormality. No significant liver | | | abnormality. Post cholecystectomy. Pancreas, Spleen and Adrenals: | | | No pancreatitis or pancreatic mass. No splenomegaly or splenic | | | hemorrhage. Stable small splenic hypodensity. No significant | | | adrenal abnormality. Kidneys: No hydronephrosis, calculus or solid | | | renal mass. ABDOMEN AND PELVIS Bowel: No small bowel or colonic | | | dilation or adjacent inflammation. No appendiceal dilation or | | | inflammation. Vessels: No significant abnormality in the aorta or its | | | proximal branches. No significant abnormality in the portal veins, | | | mesenteric veins or systemic veins. Lymph Nodes: No adenopathy. | | | Peritoneum and Retroperitoneum: No ascites or free air. No significant | | | retroperitoneal abnormality. PELVIS Genitourinary: Distal | | | ureters and bladder appear normal. No pelvic masses. BODY WALL | | | Soft Tissues: No bowel or inflamed fat containing hernia, mass or | | | hemorrhage. Bones: No acute fracture or vertebral end plate | | | destruction. Old healed fracture of right inferior pubic ramus. | | | No lytic or blastic lesion. | | + + + + + | Procedure Note | + + | Richard, Rad Results In - 07/23/2019 6:48 PM PDT | | CT ABDOMEN AND PELVIS WITH CONTRAST | | | | CLINICAL INFORMATION: | | Abdominal pain and constipation | | | | COMPARISON: | | CT ANGIOGRAM PULMONARY W CONTRAST (07/03/2019); CT ABDOMEN PELVIS W | | CONTRAST (02/25/2016); CT ABDOMEN PELVIS WO CONTRAST (04/28/2014); | | | | PROCEDURE: | | Axial images through the abdomen and pelvis after the administration of | | 100 ml omnipaque 350 intravenous contrast. Multiplanar reconstructions. | | | | At least one of the following CT dose optimization techniques were | | used: Automated exposure control; Adjustment of mA and/or kV according | | to patient size; Use of iterative reconstruction technique. | | | | FINDINGS: | | LUNG BASES: Ground-glass opacities in right lower lobe are new compared | | to 07/03/2019. No pleural effusion or pneumothorax. | | | | ABDOMEN | | Liver and Biliary: No biliary abnormality. No significant liver | | abnormality. Post cholecystectomy. | | Pancreas, Spleen and Adrenals: No pancreatitis or pancreatic mass. No | | splenomegaly or splenic hemorrhage. Stable small splenic hypodensity. | | No significant adrenal abnormality. | | Kidneys: No hydronephrosis, calculus or solid renal mass. | | | | ABDOMEN AND PELVIS | | Bowel: No small bowel or colonic dilation or adjacent inflammation. No | | appendiceal dilation or inflammation. | | Vessels: No significant abnormality in the aorta or its proximal | | branches. No significant abnormality in the portal veins, mesenteric | | veins or systemic veins. | | Lymph Nodes: No adenopathy. | | Peritoneum and Retroperitoneum: No ascites or free air. No significant | | retroperitoneal abnormality. | | | | PELVIS | | Genitourinary: Distal ureters and bladder appear normal. No pelvic | | masses. | | | | BODY WALL | | Soft Tissues: No bowel or inflamed fat containing hernia, mass or | | hemorrhage. | | Bones: No acute fracture or vertebral end plate destruction. Old | | healed fracture of right inferior pubic ramus. No lytic or blastic | | lesion. | | | | IMPRESSION: | | 1. New ground-glass opacities in right lower lobe. Differential | | diagnosis includes aspiration, viral pneumonia, and bacterial pneumonia. | | 2. No acute findings within the abdomen or pelvis. | | | | | | | | Signed by: Irina Arrington Irene | | Sign Date/Time: 07/23/2019 6:44 PM | + + + +---------+ + + | Performing | Address | City/State[facility] | Phone Number | | Organization | | | | + +---------+ + + | [facility] | | | | + +---------+ + + CT Head wo Contrast (07/23/2019 6:31 PM PDT) + + | Specimen | + + | | + + + + + | Impressions | Performed At | + + + | 1. No acute intracranial process. 2. Nonobstructive pattern | [facility] | | sinonasal disease. Signed by: Irina Ji, Kishan Pina | | | Date/Time: 07/23/2019 6:51 PM | | + + + + + + | Narrative | Performed At | + + + | CT HEAD WITHOUT CONTRAST CLINICAL INFORMATION: Headaches and | [facility] | | dizziness, Ataxia, stroke suspected COMPARISON: CT HEAD WO | | | CONTRAST (05/16/2019); CT HEAD WO CONTRAST (01/25/2019); MRI ANGIOGRAM | | | HEAD WO CONTRAST (01/04/2019); PROCEDURE: Axial images were | | | obtained through the head without IV contrast. Multiplanar | | | reformations were obtained from the acquisition data. At least one | | | of the following CT dose optimization techniques were used: | | | Automated exposure control; Adjustment of mA and/or kV according to | | | patient size; Use of iterative reconstruction technique. FINDINGS: | | | Brain: No intracranial hemorrhage, midline shift or pathologic mass | | | effect. No cerebral edema, mass lesion, or evidence of acute infarct. | | | Ventricles and extra-axial fluid spaces: Normal. Paranasal | | | sinuses and mastoid air cells: Complete opacification of the left | | | frontal sinus is noted with moderate mucosal thickening of the right | | | side. Mild mucosal thickening is demonstrated of the bilateral | | | ethmoid sinuses. There is minimal mucosal thickening of the right | | | maxillary sinus. Debris is seen along the left external auditory | | | canal. Calvarium and extracranial soft tissues: Normal. | | | Orbits: Imaged portions of the orbits are normal. | | + + + + + | Procedure Note | + + | Richard, Rad Results In 07/23/2019 6:55 PM PDT | | CT HEAD WITHOUT CONTRAST | | | | CLINICAL INFORMATION: | | Headaches and dizziness, Ataxia, stroke suspected | | | | COMPARISON: | | CT HEAD WO CONTRAST (05/16/2019); CT HEAD WO CONTRAST (01/25/2019); MRI | | ANGIOGRAM HEAD WO CONTRAST (01/04/2019); | | | | PROCEDURE: | | [...] | | | FINDINGS: | | Brain: No intracranial hemorrhage, midline shift or pathologic mass | | effect. No cerebral edema, mass lesion, or evidence of acute infarct. | | | | Ventricles and extra-axial fluid spaces: Normal. | | | | Paranasal sinuses and mastoid air cells: Complete opacification of the | | left frontal sinus is noted with moderate mucosal thickening of the | | right side. Mild mucosal thickening is demonstrated of the bilateral | | ethmoid sinuses. There is minimal mucosal thickening of the right | | maxillary sinus. Debris is seen along the left external auditory canal. | | | | Calvarium and extracranial soft tissues: Normal. | | | | Orbits: Imaged portions of the orbits are normal. | | | | IMPRESSION: | | 1. No acute intracranial process. | | 2. Nonobstructive pattern sinonasal disease. | | | | | | | | | | Signed by: Irina Ji Richard | | Sign Date/Time: 07/23/2019 6:51 PM | + + + +---------+ + + | Performing | Address | City/State/Zipcode | Phone Number | | Organization | | | | + +---------+ + + | [facility] | | | | + +---------+ + + Culture, Blood (07/23/2019 5:57 PM PDT) + + + + + + | Component | Value | Ref Range | Performed | Pathologist | | | | | At | Signature | + + + + + + | Special | LAC | | [facility] | | | Requests | | | LABORATORY | | + + + + + + | Special | Testing performed at | | [facility] | | | Requests | [facility];[address] | | LABORATORY | | | | [place] [address] | | | | + + + + + + | RESULT | NO GROWTH 6 DAYS | | [facility] | | | | | [facility] | | + + + + + + | RESULT | Testing performed at | | [facility] | | | | L, [address] [facility] | | LABORATORY | | | | [place] | | | | | | [id number]: Testing | | | | | | performed at [facility], [address] | | | | | [place] | | | | | | [address] | | | | + + + + + + + + | Specimen | + + | Blood - Peripheral | | blood specimen | | (specimen) | + + + + + + + | Performing | Address | City/State/Zipcode | Phone Number | | Organization | | | | + + + + + | [facility] | [address] | [place] [address] | [phone] | + + + + + B Type Natriuretic Peptide (07/23/2019 5:49 PM PDT) + + + + + + | Component | Value | Ref Range | Performed | Pathologist | | | | | At | Signature | + + + + + + | BNP | 74.20Comment: Testing | 0 - 100 pg/mL | LUIS ALBERTO | | | | performed at [facility];[address] | | LABORATORY | | | | [address];[place] | | | | | | [address] | | | | + + + + + + + + | Specimen | + + | | + + + + + + + | Performing | Address | City/State/Zipcode | Phone Number | | Organization | | | | + + + + + | [facility] | [address] | [place] [address] | [phone] | + + + + + Protime INR (07/23/2019 5:49 PM PDT) + + + + + + | Component | Value | Ref Range | Performed | Pathologist | | | | | At | Signature | + + + + + + | INR | 1.0Comment: REFERENCE | | [facility] | | | [...] | | | | | performed at [facility];[address] | | | | | | [address];[place], [place] | | | | | | [address] | | | | + + + + + + + + | Specimen | + + | Blood | + + + + + + + | Performing | Address | City/State/Zipcode | Phone Number | | Organization | | | | + + + + + | [facility] | [address] | [place] [address] | [phone] | + + + + + Troponin I (07/23/2019 5:49 PM PDT) + + + + + + | Component | Value | Ref Range | Performed | Pathologist | | | | | At | Signature | + + + + + + | Troponin I | 0.017Comment: 0.04 | 0.00 - 0.04 | [facility] | | | | ng/mL or less [...] at | | | | | | [facility];[address] [facility] | | | | | | [facility];[place] [address] | | | | + + + + + + + + | Specimen | + + | Blood | + + + + + + + | Performing | Address | City/State/Zipcode | Phone Number | | Organization | | | | + + + + + | [facility] | [address] | [place] [address] | [phone] | + + + + + Comprehensive Metabolic Panel (07/23/2019 5:49 PM PDT) + + + + + + | Component | Value | Ref Range | Performed | Pathologist | | | | | At | Signature | + + + + + + | Na | 136 | 135 - 145 | [facility] | | | | | mmol/L | LABORATORY | | + + + + + + | K | 3.4 (L) | 3.5 - 4.9 | [facility] | | | | | mmol/L | LABORATORY | | + + + + + + | Cl | 100 | 99 - 109 mmol/L | [facility] | | | | | | LABORATORY | | + + + + + + | CO2 | 27 | 23 - 32 mmol/L | [facility] | | | | | | LABORATORY | | + + + + + + | Anion Gap | 12 | 5 - 20 mmol/L | [facility] | | | | | | LABORATORY | | + + + + + + | Glucose | 267 (H) | 65 - 99 mg/dL | [facility] | | | | | | LABORATORY | | + + + + + + | BUN | 19 | 8 - 25 mg/dL | [facility] | | | | | | LABORATORY | | + + + + + + | Creatinine | 0.86 | 0.70 - 1.30 | [facility] | | | | | mg/dL | LABORATORY | | + + + + + + | BUN/Creatin | 22 | | [facility] | | | ine Ratio | | | LABORATORY | | + + + + + + | Calcium | 9.3 | 8.5 - 10.5 | [facility] | | | | | mg/dL | LABORATORY | | + + + + + + | Protein, | 7.2 | 6.3 - 8.2 g/dL | [facility] | | | Total | | | LABORATORY | | + + + + + + | Albumin | 4.2 | 3.3 - 4.8 g/dL | [facility] | | | | | | LABORATORY | | + + + + + + | Globulin | 3.0 | 1.3 - 4.9 g/dL | [facility] | | | | | | LABORATORY | | + + + + + + | A/G Ratio | 1.4 | 1.0 - 2.4 | [facility] | | | | | | LABORATORY | | + + + + + + | BILIRUBIN, | 1.0 | 0.1 - 1.5 mg/dL | [facility] | | | TOTAL | | | LABORATORY | | + + + + + + | ALK PHOS | 160 (H) | 35 - 115 U/L | [facility] | | | | | | LABORATORY | | + + + + + + | AST | 23 | 10 - 45 U/L | [facility] | | | | | | LABORATORY | | + + + + + + | ALT | 34 | 10 - 65 U/L | [facility] | | | | | | LABORATORY | | + + + + + + | Estimated | >60Comment: GFR <60: | >60 | [facility] | | | GFR | [...] | | | | | | [facility]D [facility] traceable | | | | | | equation.Testing | | | | | | performed at [facility];[address] | | | | | | [address] [facility];[place], [place] | | | | | | [address] | | | | + + + + + + + + | Specimen | + + | Blood | + + + + + + + | Performing | Address | City/State/Zipcode | Phone Number | | Organization | | | | + + + + + | [facility] | [address] [facility] | [place] [address] | [phone] | + + + + + CBC with Differential (07/23/2019 5:49 PM PDT) + + + + + + | Component | Value | Ref Range | Performed | Pathologist | | | | | At | Signature | + + + + + + | WBC | 16.77 (H) | 3.80 - 11.00 | [facility] | | | | | K/uL | LABORATORY | | + + + + + + | Red Blood | 5.02 | 4.20 - 5.70 | [facility] | | | Cells | | M/uL | LABORATORY | | + + + + + + | Hemoglobin | 13.5 | 13.2 - 17.0 | [facility] | | | | | g/dL | LABORATORY | | + + + + + + | Hematocrit | 41.5 | 39.0 - 50.0 % | [facility] | | | | | | LABORATORY | | + + + + + + | MCV | 82.7 | 80.0 - 100.0 fl | [facility] | | | | | | LABORATORY | | + + + + + + | MCH | 26.9 (L) | 27.0 - 34.0 pg | [facility] | | | | | | LABORATORY | | + + + + + + | MCHC | 32.5 | 32.0 - 35.5 | [facility] | | | | | g/dL | LABORATORY | | + + + + + + | RDW-SD | 41.1 | 37 - 53 fl | [facility] | | | | | | LABORATORY | | + + + + + + | Platelet | 266 | 150 - 400 K/uL | [facility] | | | Count | | | LABORATORY | | + + + + + + | MPV | 10.0Comment: NO NORMAL | fl | [facility] | [...] + + + + | % | 79.20 | % | [facility] | | | Neutrophils | | | LABORATORY | | + + + + + + | IMMATURE | 0.70 | % | [facility] | | | GRANULOCYTE | | | LABORATORY | | + + + + + + | % | 10.90 | % | [facility] | | | Lymphocytes | | | LABORATORY | | + + + + + + | Monocyte % | 8.20 | % | [facility] | | | | | | LABORATORY | | + + + + + + | Eosinophils | 0.80 | % | [facility] | | | % | | | LABORATORY | | + + + + + + | Basophils % | 0.20 | % | [facility] | | | | | | LABORATORY | | + + + + + + | Neutrophils | 13.28 (H) | 1.90 - 7.40 | [facility] | | | , Absolute | | K/uL | LABORATORY | | + + + + + + | IMMATURE | 0.11 (H)Comment: NOTE | 0.00 - 0.07 | [facility] | | | GRANS AB | NEW REFERENCE RANGE | K/uL | LABORATORY | | + + + + + + | Absolute | 1.82 | 1.00 - 3.90 | [facility] | | | Lymphocytes | | K/uL | LABORATORY | | + + + + + + | Absolute | 1.38 (H) | 0.00 - 0.80 | [facility] | | | Monocytes | | K/uL | LABORATORY | | + + + + + + | Eosinophils | 0.14 | 0.00 - 0.50 | [facility] | | | , Absolute | | K/uL | LABORATORY | | + + + + + + | Basophils, | 0.04Comment: Testing | 0.00 - 0.10 | [facility] | | | Absolute | performed at [facility];[address] | [address] | LABORATORY | | | | [address];[place], [place] | | | | | | [address] | | | | + + + + + + + + | Specimen | + + | Blood | + + + + + + + | Performing | Address | City/State/Zipcode | Phone Number | | Organization | | | | + + + + + | [facility] | [address] | [place] [address] | [phone] | + + + + + Culture, Blood (07/23/2019 5:48 PM PDT) + + + + + + | Component | Value | Ref Range | Performed | Pathologist | | | | | At | Signature | + + + + + + | Special | RAC | | [facility] | | | Requests | | | LABORATORY | | + + + + + + | Special | Testing performed at | | [facility] | | | Requests | [facility];[address] | | LABORATORY | | | | [place] [address] | | | | + + + + + + | RESULT | NO GROWTH 6 DAYS | | [facility] | | | | | | LABORATORY | | + + + + + + | RESULT | Testing performed at | | [facility] | | | | [facility], [address] [facility] | | LABORATORY | | | | [place] | | | | | | [id number]: Testing | | | | | | performed at [facility], [address] | | | | | | [place] | | | | | | [address] | | | | + + + + + + + + | Specimen | + + | Blood - Swab of line | | insertion site | | (specimen) | + + + + + + + | Performing | Address | City/State/Zipcode | Phone Number | | Organization | | | | + + + + + | [facility] | [address] | [place] [address] | [phone] | + + + + + Culture, Urine (07/23/2019 5:23 PM PDT) + + + + + + | Component | Value | Ref Range | Performed | Pathologist | | | | | At | Signature | + + + + + + | RESULT | <10,000 CFU/MLMIXED GRAM | | [facility] | | | | POSITIVE DIDI | | LABORATORY | | | | | | | | + + + + + + | RESULT | NO FURTHER WORKUP | | [facility] | | | | | | LABORATORY | | + + + + + + | RESULT | Testing performed at | | [facility] | | | | [facility], [address] | | LABORATORY | | | | [place] | | | | | | [id number]: Testing | | | | | | performed at [facility], [address] | | | | | | [address] [place], | | | | | | [place] [address] | | | | + + + + + + + + | Specimen | + + | Urine - Urine | | specimen obtained | | via indwelling | | urinary catheter | | (specimen) | + + + + + + + | Performing | Address | City/State/Zipcode | Phone Number | | Organization | | | | + + + + + | [facility] | [address] | [place] [address] | [phone] | + + + + + Urinalysis With Microscopic (07/23/2019 5:23 PM PDT) + + + + + [...] + + + + | Specific | 1.013 | 1.002 - 1.030 | [facility] | | | [place], | | | LABORATORY | | | [...] + + + | WBC UA | 0-2 | 0 - 5 /hpf | [facility] [...] + + + | Bacteria, | NONE SEENComment: | NONE | [facility] | | | Urine | Testing performed at | | LABORATORY | | | | [facility];[address] [place] [address] | | | | | | [place] [address] | | | | + + + + + + + + | Specimen | + + | Urine - Urine | | specimen obtained by | | clean catch | | procedure (specimen) | + + + + + + + | Performing | Address | City/State/Zipcode | Phone Number | | Organization | | | | + + + + + | [facility] | [address] | [place] [address] | [phone] | + + + + + XR Chest AP Portable (07/23/2019 5:13 PM PDT) + + | Specimen | + + | | + + + + | Addenda | + + | Addendum by Prosche Arrington MD on 07/23/2019 6:54 PM ADDENDUM BEGINS There is hazy | | opacification of the right lung base which corresponds to ground-glass opacities on | | same day CT of the abdomen and pelvis. Signed by: Irina Arrington Irene Sign | | Date/Time: 07/23/2019 6:50 PM ADDENDUM ENDS | + + + + + | Impressions | Performed At | + + + | Negative chest. Signed by: Irina Arrington Irene Sign | [facility] | | Date/Time: 07/23/2019 5:18 PM | | + + + + + + | Narrative | Performed At | + + + | CHEST PORTABLE ONE VIEW CLINICAL INFORMATION: Heart | [facility] | | palpitations COMPARISON: CT ANGIOGRAM PULMONARY W CONTRAST | | | (07/03/2019); XR CHEST AP PORTABLE (05/15/2019); FINDINGS: Heart, | | | lungs and vessels normal. No pneumothorax, pleural effusion or | | | adenopathy. No significant bone abnormality. | | + + + + + | Procedure Note | + + | Richard, Rad Results In - 07/23/2019 5:22 PM PDT | | CHEST PORTABLE ONE VIEW | | | | CLINICAL INFORMATION: | | Heart palpitations | | | | COMPARISON: | | CT ANGIOGRAM PULMONARY W CONTRAST (07/03/2019); XR CHEST AP PORTABLE | | (05/15/2019); | | | | FINDINGS: | | Heart, lungs and vessels normal. No pneumothorax, pleural effusion or | | adenopathy. No significant bone abnormality. | | | | IMPRESSION: | | Negative chest. | | | | | | | | Signed by: Irina Arrington Irene | | Sign Date/Time: 07/23/2019 5:18 PM | + + + +---------+ + + | Performing | Address | City/State/Zipcode | Phone Number | | Organization | | | | + +---------+ + + | [facility] | | | | + +---------+ + + ECG 12 lead (07/23/2019 3:54 PM PDT) + + + + + + | Component | Value | Ref Range | Performed | Pathologist | | | | | At | Signature | + + + + + + | VENTRICULAR | 90 | BPM | [facility] | | | RATE EKG | | | | | + + + + + + | ATRIAL RATE | 90 | BPM | [facility] | | + + + + + + | P-R | 152 | ms | [facility] | | | INTERVAL | | | | | + + + + + + | QRS | 82 | ms | [facility] | | | DURATION | | | | | + + + + + + | Q-T | 350 | ms | [facility] | | | INTERVAL | | | | | + + + + + + | Q-T | 428 | ms | [facility] | | | INTERVAL | | | | | | (CORRECTED) | | | | | + + + + + + | P WAVE AXIS | 35 | degrees | [facility] | | + + + + + + | QRS AXIS | 53 | degrees | [facility] | | + + + + + + | T AXIS | -28 | degrees | [facility] | | + + + + + + | INTERPRETAT | Sinus rhythm with | | [facility] | | | ION TEXT | Premature atrial | | | | | | complexesPossible Left | | | | | | atrial enlargementLeft | | | | | | ventricular hypertrophy | | | | | | with repolarization | | | | | | abnormalityAbnormal | | | | | | ECGWhen compared with | | | | | | ECG of 06-JUL-2019 | | | | | | 06:23,Premature atrial | | | | | | complexes are now | | | | | | PresentNonspecific T | | | | | | wave abnormality, worse | | | | | | in Inferior | | | | | | leadsNonspecific T wave | | | | | | abnormality now evident | | | | | | in Lateral leadsQT has | | | | | | shortenedThis ECG | | | | | | [...] (500), | | | | | | 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 | | | | | | ([id number]) on 07/24/2019 | | | | | | 2:45:33 PM | | | | + + [...] + | Diagnosis | + + | Pneumonia - Primary Pneumonia, organism unspecified | + + | Aspiration pneumonia of right lung, unspecified aspiration pneumonia type, unspecified | | part of lung (HCC) | + + | Paroxysmal atrial fibrillation (HCC) Atrial fibrillation | + + | Generalized weakness Other malaise and fatigue | + + | Hyperlipidemia Other and unspecified hyperlipidemia | + + | WARD (obstructive sleep apnea) Obstructive sleep apnea (adult) (pediatric) | + + | HTN (hypertension) Unspecified essential hypertension | + + | Chronic anticoagulation | + + | Diabetes mellitus, type 2 Type II or unspecified type diabetes mellitus without | | mention of complication, not stated as uncontrolled | + + documented in this encounter Administered Medications + +--------+ +--------+------+------+ | Medication Order | MAR | Action | Dose | Rate | Site | | | Action | Date | | | | + +--------+ +--------+------+------+ | acetaminophen (TYLENOL) tablet | Given | 07/25/19 | 650 mg | | | | 650 mg 650 mg, Oral, EVERY 4 | | 20 9:45 | | | | | HOURS PRN, Pain, Starting Wed | | AM PDT | | | | | 07/24/19 at 2327 | | | | | | + +--------+ +--------+------+------+ +-------+ +--------+---+---+ | Given | 07/24/19 | 650 mg | | | | | 20 11:35 | | | | | | PM PDT | | | | +-------+ +--------+---+---+ +---+---+ | | | +---+---+ + +-------+ +-------+---+---+ | albuterol-ipratropium 2.5-0.5 | Given | 07/24/19 | 3 mLs | | | | mg/3 mL nebulizer solution 3 mL | | 20 1:37 | | | | | 3 mL, Nebulization, RT Q6H, First | | PM PDT | | | | | dose on Mon07/23/19 at 2330 | | | | | | + +-------+ +-------+---+---+ +-------+ +-------+---+---+ | Given | 07/24/19 | 3 mLs | | | | | 20 7:06 | | | | | | AM PDT | | | | +-------+ +-------+---+---+ + +---+ | | | + +---+ | albuterol-ipratropium 2.5-0.5 | | | mg/3 mL nebulizer solution 3 mL | | | 3 mL, Nebulization, RT EVERY 6 | | | HOURS PRN, Wheezing, Shortness of | | | Breath, Starting 07/24/19 at | | | 1815 | | + +---+ | | | + +---+ + +-------+ + +---+---+ | amoxicillin-clavulanate | Given | 07/26/19 | 1 tablet | | | | (AUGMENTIN) 875-125 mg per tablet | | 20 10:14 | | | | | 1 tablet 1 tablet, Oral, 2 | | AM PDT | | | | | TIMES DAILY, First dose on Mon | | | | | | | 07/26/19 at 1000, Indications: | | | | | | | Aspiration Pneumonia | | | | | | + +-------+ + +---+---+ +---+---+ | | | +---+---+ + +---------+ +-----+-------+---+ | ampicillin-sulbactam (UNASYN) 3 | New Bag | 07/23/19 | 3 g | 200 | | | g in sodium chloride 0.9% 100 mL | | 20 7:46 | | mL/hr | | | IVPB 3 g, Intravenous, | | PM PDT | | | | | Administer over 30 Minutes, ONCE, | | | | | | | 07/23/19 at 1900, For 1 dose, | | | | | | | Activate system and mix before | | | | | | | use., Indications: Aspiration | | | | | | | Pneumonia | | | | | | + +---------+ +-----+-------+---+ +---+---+ | | | +---+---+ + +---------+ +-----+-------+---+ | ampicillin-sulbactam (UNASYN) 3 | New Bag | 07/26/19 | 3 g | 200 | | | g in sodium chloride 0.9% 100 mL | | 20 4:35 | | mL/hr | | | IVPB 3 g, Intravenous, | | AM PDT | | | | | Administer over 30 Minutes, EVERY | | | | | | | 6 HOURS INTERVAL, First dose on | | | | | | | 07/24/19 at 0400, Activate | | | | | | | system and mix before use., | | | | | | | Indications: Community Acquired | | | | | | | Pneumonia | | | | | | + +---------+ +-----+-------+---+ +---------+ +-----+-------+---+ | New Bag | 07/25/19 | 3 g | 200 | | | | 20 9:09 | | mL/hr | | | | PM PDT | | | | +---------+ +-----+-------+---+ | New Bag | 07/25/19 | 3 g | 200 | | | | 20 4:52 | | mL/hr | | | | PM PDT | | | | +---------+ +-----+-------+---+ +---+---+ | | | +---+---+ + +-------+ +------+---+---+ | apixaban (ELIQUIS) tablet 5 mg | Given | 07/26/19 | 5 mg | | | | 5 mg, Oral, 2 TIMES DAILY, First | | 20 7:45 | | | | | dose on Mon07/24/19 at 0145 | | AM PDT | | | | + +-------+ +------+---+---+ +-------+ +------+---+---+ | Given | 07/25/19 | 5 mg | | | | | 20 8:06 | | | | | | PM PDT | | | | +-------+ +------+---+---+ | Given | 07/25/19 | 5 mg | | | | | 20 9:11 | | | | | | AM PDT | | | | +-------+ +------+---+---+ +---+---+ | | | +---+---+ + +-------+ +------+---+---+ | ARIPiprazole (ABILIFY) tablet 5 | Given | 07/26/19 | 5 mg | | | | mg 5 mg, Oral, DAILY, First | | 20 7:43 | | | | | dose on Mon07/24/19 at 0900 | | AM PDT | | | | + +-------+ +------+---+---+ +-------+ +------+---+---+ | Given | 07/25/19 | 5 mg | | | | | 20 9:12 | | | | | | AM PDT | | | | +-------+ +------+---+---+ | Given | 06/17/20 | 5 mg | | | | | 20 9:06 | | | | | | AM PDT | | | | +-------+ +------+---+---+ +---+---+ | | | +---+---+ + +-------+ +-------+---+---+ | atorvaSTATin (LIPITOR) tablet | Given | 07/25/19 | 40 mg | | | | 40 mg 40 mg, Oral, NIGHTLY, | | 20 8:06 | | | | | First dose on Mon07/24/19 at 0145 | | PM PDT | | | | + +-------+ +-------+---+---+ +-------+ +-------+---+---+ | Given | 07/24/19 | 40 mg | | | | | 20 9:01 | | | | | | PM PDT | | | | +-------+ +-------+---+---+ | Given | 07/24/19 | 40 mg | | | | | 20 2:22 | | | | | | AM PDT | | | | +-------+ +-------+---+---+ +---+---+ | | | +---+---+ + +-------+ +---------+---+---+ | budesonide-formoterol | Given | 07/26/19 | 2 puffs | | | | (SYMBICORT) 160-4.5 mcg/puff | | 20 7:47 | | | | | inhaler 2 puff 2 puff, | | AM PDT | | | | | Inhalation, 2 TIMES DAILY, First | | | | | | | dose on Mon07/24/19 at 0145, | | | | | | | Shake well. Use with spacer. | | | | | | | Rinse mouth after use., | | | | | | + +-------+ +---------+---+---+ +-------+ +---------+---+---+ | Given | 07/25/19 | 2 puffs | | | | | 20 8:05 | | | | | | PM PDT | | | | +-------+ +---------+---+---+ | Given | 07/25/19 | 2 puffs | | | | | 20 9:13 | | | | | | AM PDT | | | | +-------+ +---------+---+---+ +---+---+ | | | +---+---+ + +-------+ +---------+---+---+ | carvedilol (COREG) tablet 12.5 | Given | 07/24/19 | 12.5 mg | | | | mg 12.5 mg, Oral, 2 TIMES DAILY | | 20 9:05 | | | | | WITH BREAKFAST & DINNER, First | | AM PDT | | | | | dose on Mon07/24/19 at 0800 | | | | | | + +-------+ +---------+---+---+ + +---+ | | | + +---+ | dextrose 10% (D10W) infusion | | | at 50 mL/hr, Intravenous, | | | CONTINUOUS PRN, hypoglycemia, | | | Starting Mon07/24/19 at 0123, | | | Start infusion if unable to | | | maintain blood glucose greater | | | than 70 mg/dL after two rounds of | | | hypoglycemia treatment. Recheck | | | blood glucose 30 minutes after | | | starting D10W then at least | | | hourly and PRN until it is | | | discontinued. Call provider to | | | discuss parameters for D10W | | | discontinuation., | | + +---+ | | | + +---+ | dextrose 50% injection 12.5-25 | | | g 12.5-25 g, Intravenous, PRN, | | | Low Blood Sugar, Starting Wed | | | 07/24/19 at 0123, For blood | | | glucose 50-69 mg/dl - give 12.5 g | | | For blood glucose less than 50 | | | mg/dl - give 25 g, | | + +---+ | | | + +---+ + +-------+ +-------+---+---+ | dilTIAZem (CARDIZEM) injection | Given | 07/23/19 | 20 mg | | | | 20 mg 20 mg, Intravenous, ONCE, | | 20 10:36 | | | | | 07/23/19 at 2235, For 1 dose, | | PM PDT | | | | | Keep in refrigerator., | | | | | | + +-------+ +-------+---+---+ +---+---+ | | | +---+---+ + +-------+ +---------+---+---+ | docusate-senna (SENOKOT-S) | Given | 07/25/19 | 2 | | | | 50-8.6 mg per tablet 2 tablet 2 | | 20 9:11 | tablets | | | | tablet, Oral, 2 TIMES DAILY, | | AM PDT | | | | | First dose on Mon07/24/19 at 2100 | | | | | | + +-------+ +---------+---+---+ +-------+ +---------+---+---+ | Given | 07/24/19 | 2 | | | | | 20 9:02 | tablets | | | | | PM PDT | | | | +-------+ +---------+---+---+ +---+---+ | | | +---+---+ + +-------+ +------+---+---+ | finasteride (PROSCAR) tablet 5 | Given | 07/26/19 | 5 mg | | | | mg 5 mg, Oral, DAILY, First dose | | 20 7:44 | | | | | on Mon07/24/19 at 0900, | | AM PDT | | | | | Reproductive Risk: Use | | | | | | | appropriate handling | | | | | | | precautions., | | | | | | + +-------+ +------+---+---+ +-------+ +------+---+---+ | Given | 07/25/19 | 5 mg | | | | | 20 9:11 | | | | | | AM PDT | | | | +-------+ +------+---+---+ | Given | 07/24/19 | 5 mg | | | | | 20 9:06 | | | | | | AM PDT | | | | +-------+ +------+---+---+ +---+---+ | | | +---+---+ + +-------+ + +---+ + | insulin detemir (LEVEMIR | Given | 07/25/19 | 45 Units | | Abdomen- | | FLEXTOUCH) injection (pen) 45 | | 20 8:06 | | | RLQ | | Units 45 Units, Subcutaneous, | | PM PDT | | | | | NIGHTLY, First dose on Mon | | | | | | | 07/24/19 at 0145, For subcutaneous | | | | | | | use only. Basal (long acting) | | | | | | | insulin., If NPO: Decrease dose, | | | | | | | by: 50% | | | | | | + +-------+ + +---+ + +-------+ + +---+ + | Given | 07/24/19 | 45 Units | | Abdomen- | | | 20 9:02 | | | LLQ | | | PM PDT | | | | +-------+ + +---+ + | Given | 07/24/19 | 45 Units | | Abdomen- | | | 20 2:53 | | | RLQ | | | AM PDT | | | | +-------+ + +---+ + +---+---+ | | | +---+---+ + +-------+ +---------+---+ + | insulin lispro (humaLOG) | Given | 07/25/19 | 4 Units | | Arm-Left | | injection (vial) 0-12 Units 0-12 | | 20 4:11 | | | Upper | | Units, Subcutaneous, 4 TIMES | | PM PDT | | | | | DAILY WITH MEALS & NIGHTLY, First | | | | | | | dose on Mon07/24/19 at 0800, | | | | | | | CORRECTION SCALE: Blood Glucose | | | | | | | (BG) < 150: None | | | | | | | BG 150-200: DAY: 2 units. | | | | | | | NIGHT: 0 units BG 201-250: DAY: | | | | | | | 4 units. NIGHT: 2 units BG | | | | | | | 251-300: DAY: 6 units. NIGHT: | | | | | | | 4 units BG 301-350: DAY: 8 | | | | | | | units. NIGHT: 6 units BG | | | | | | | 351-400: DAY: 10 units. NIGHT: 8 | | | | | | | units BG > 400 : DAY: 12 | | | | | | | units. NIGHT: 10 units | | | | | | | AND CALL PROVIDER | | | | | | | , Use DAY DOSE for doses | | | | | | | scheduled: AC, NPO, Daytime | | | | | | | [id number] Use NIGHT DOSE for | | | | | | | doses scheduled: HS, | | | | | | | Nighttime [id number] If the BG is | | | | | | | not checked before the patient | | | | | | | starts eating, do not give | | | | | | | correction insulin. Only for use | | | | | | | with U-100 insulin syringe., | | | | | | + +-------+ +---------+---+ + +-------+ +---------+---+ + | Given | 07/25/19 | 2 Units | | Abdomen- | | | 20 11:54 | | | RUQ | | | AM PDT | | | | +-------+ +---------+---+ + | Given | 07/25/19 | 2 Units | | Arm-Left | | | 20 6:18 | | | Upper | | | AM PDT | | | | +-------+ +---------+---+ + +---+---+ | | | +---+---+ + +-------+ +---------+---+ + | insulin lispro (humaLOG) | Given | 07/26/19 | 5 Units | | Abdomen- | | injection (vial) 5 Units 5 | | 20 6:10 | | | LLQ | | Units, Subcutaneous, 3 TIMES | | AM PDT | | | | | DAILY WITH MEALS, First dose on | | | | | | | 07/24/19 at 1830, Only for use | | | | | | | with U-100 insulin syringe., | | | | | | + +-------+ +---------+---+ + +-------+ +---------+---+ + | Given | 07/25/19 | 5 Units | | Arm-Righ | | | 20 4:11 | | | t Upper | | | PM PDT | | | | +-------+ +---------+---+ + | Given | 07/25/19 | 5 Units | | Arm-Righ | | | 20 11:53 | | | t Upper | | | AM PDT | | | | +-------+ +---------+---+ + +---+---+ | | | +---+---+ + +-------+ +---------+---+---+ | iohexol (OMNIPAQUE 350) 350 | Given | 07/23/19 | 100 mLs | | | | mg/mL injection 100 mL 100 mL, | | 20 6:33 | | | | | Intravenous, ONCE PRN, Other, | | PM PDT | | | | | Starting 07/23/19 at 1818, For | | | | | | | 1 dose, Cat Scanner | | | | | | + +-------+ +---------+---+---+ + +---+ | | | + +---+ | labetalol (TRANDATE) 5 mg/mL | | | injection 10-20 mg 10-20 mg, | | | Intravenous, EVERY 4 HOURS PRN, | | | SBP > 160, Starting 07/24/19 | | | at 0124 | | + +---+ | | | + +---+ + +-------+ +-------+---+---+ | lisinopril (PRINIVIL, ZESTRIL) | Given | 07/26/19 | 40 mg | | | | tablet 40 mg 40 mg, Oral, DAILY, | | 20 7:45 | | | | | First dose on Mon07/24/19 at | | AM PDT | | | | | 0900 | | | | | | + +-------+ +-------+---+---+ +-------+ +-------+---+---+ | Given | 07/25/19 | 40 mg | | | | | 20 9:12 | | | | | | AM PDT | | | | +-------+ +-------+---+---+ | Given | 07/24/19 | 40 mg | | | | | 20 9:05 | | | | | | AM PDT | | | | +-------+ +-------+---+---+ +---+---+ | | | +---+---+ + +-------+ +--------+---+---+ | magnesium oxide (MAG-OX) tablet | Given | 06/18/20 | 400 mg | | | | 400 mg 400 mg, Oral, ONCE, Joselyn | | 20 4:48 | | | | | 07/25/19 at 1530, For 1 dose | | PM PDT | | | | + +-------+ +--------+---+---+ +---+---+ | | | +---+---+ + +-------+ +-------+---+---+ | metoprolol succinate | Given | 07/25/19 | 50 mg | | | | (TOPROL-XL) ER tablet 50 mg 50 | | 20 9:12 | | | | | mg, Oral, DAILY, First dose | | AM PDT | | | | | (after last modification) on Wed | | | | | | | 07/24/19 at 1045, Tablet may be | | | | | | | cut where scored but do not | | | | | | | crush., | | | | | | + +-------+ +-------+---+---+ +-------+ +-------+---+---+ | Given | 07/24/19 | 50 mg | | | | | 20 11:44 | | | | | | AM PDT | | | | +-------+ +-------+---+---+ +---+---+ | | | +---+---+ + +-------+ +-------+---+---+ | metoprolol succinate | Given | 07/26/19 | 50 mg | | | | (TOPROL-XL) ER tablet 50 mg 50 | | 20 7:44 | | | | | mg, Oral, 2 TIMES DAILY, First | | AM PDT | | | | | dose (after last modification) on | | | | | | | Joselyn 07/25/19 at 2100, Tablet may | | | | | | | be cut where scored but do not | | | | | | | crush., | | | | | | + +-------+ +-------+---+---+ +-------+ +-------+---+---+ | Given | 07/25/19 | 50 mg | | | | | 20 8:06 | | | | | | PM PDT | | | | +-------+ +-------+---+---+ +---+---+ | | | +---+---+ + +-------+ +-------+---+---+ | NIFEdipine (PROCARDIA XL) ER | Given | 07/24/19 | 60 mg | | | | tablet 60 mg 60 mg, Oral, DAILY, | | 20 9:06 | | | | | First dose on Mon07/24/19 at | | AM PDT | | | | | 0900 | | | | | | + +-------+ +-------+---+---+ +---+---+ | | | +---+---+ + +-------+ +-------+---+---+ | pantoprazole (PROTONIX) DR | Given | 07/26/19 | 40 mg | | | | tablet 40 mg 40 mg, Oral, DAILY | | 20 6:09 | | | | | BEFORE BREAKFAST, First dose on | | AM PDT | | | | | Joselyn 07/25/19 at 0730, Do not cut | | | | | | | or crush., Indication: Unknown, | | | | | | | provider to assess | | | | | | + +-------+ +-------+---+---+ +-------+ +-------+---+---+ | Given | 07/25/19 | 40 mg | | | | | 20 6:17 | | | | | | AM PDT | | | | +-------+ +-------+---+---+ +---+---+ | | | +---+---+ + +-------+ +------+---+---+ | polyethylene glycol (MIRALAX) | Given | 07/25/19 | 17 g | | | | powder 17 g 17 g, Oral, DAILY, | | 20 9:44 | | | | | First dose on Mon07/24/19 at | | AM PDT | | | | | 1515, Mix with 8 oz. water., | | | | | | + +-------+ +------+---+---+ +-------+ +------+---+---+ | Given | 07/24/19 | 17 g | | | | | 20 4:19 | | | | | | PM PDT | | | | +-------+ +------+---+---+ +---+---+ | | | +---+---+ + +-------+ +--------+---+---+ | potassium chloride (KLOR-CON) | Given | 07/24/19 | 40 mEq | | | | ER tablet 40 mEq 40 mEq, Oral, | | 20 6:59 | | | | | ONCE, Mon07/24/19 at 1815, For 1 | | PM PDT | | | | | dose, May take with food to | | | | | | | decrease GI upset. May take with | | | | | | | food to decrease GI upset., | | | | | | + +-------+ +--------+---+---+ +---+---+ | | | +---+---+ documented in this encounter Additional Health Concerns + + + + + | Infection | Onset Date | Last Indicated | Resolved Time | + + + + + | Rule out COVID-19 | 07/03/2019 | 07/23/2019 | 07/23/2019 8:49 PM | | | | | PDT | + + + + + documented as of this encounter
--- OUTSIDE RECORDS SUMMARY | ~2019-09-09 | XMS | Encounter Summary ---
Demographics + + + | Address | [address] | | | [place] [address] | + + + | Home Phone | | + + + | Preferred Language | Unknown | + + + | Marital Status | | + + + | Congregation Affiliation | 1027 | + + + | Race | Unknown | + + + | Ethnic Group | Unknown | + + + Author + + + | Author | [facility] | | | and [place] | + + + | Organization | [facility] | | | and [place] | + + + | Address | Unknown | + + + | Phone | Unavailable | + + + Support + + + + + | Name | Relationship | Address | Phone | + + + + + | Sammi Kholer | E[place] | [place] [address] | | + + + + + Care Team Providers + +------+ + | Care Automotive Internet Sales Manager Name | Role | Phone | + +------+ + PCP | Unavailable | + +------+ + Encounter Details +--------+ + + + + | Date | Type | Department | Care Team | Description | +--------+ + + + + | 07/13/ | Hospital | [facility] | Elizabeth Ochoa, | Chest pain at rest; | | 2015 - | Encounter | MEDICAL CENTER | MD [address] | Acute chest pain; | | | | CLINICAL DECISION | [place] [address] | Chronic back pain; | | 07/14/ | | [address] | [phone] | COPD (chronic | | 2015 | | [place], [place] | | obstructive | | | | [id number] | | pulmonary disease) | | | | [phone] | | ([facility]); Hypoxia; Long | | | | | | term (current) use | | | | | | of 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; | | | | | | WARD (obstructive | | | | | | sleep apnea); | | | | | | Paroxysmal a-fib | | | | | | ([facility]) | +--------+ + + + + [...] documented as of this encounter Discharge Summaries Agustín Box MD - 07/14/2014 9:15 AM PDTFormatting of this note might be different f rom the original. Discharge Summaries by Agustín Box MD at 07/14/14914 Author: Agustín Box MD Service: Hospitalist Author Type: Physician Filed: 07/14/14 1407 Date of Service: 07/14/14914 Status: Signed Railway Track Worker: Agustín Box MD (Physician) [facility] Service: Hospitalist Physician Discharge Summary Pt: Norah Gr AGE/SEX: 58 y.o. 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 Normal myocardial perfusion study. 2. No evidence of pharmacologic stress induced ischemia or infarct. 3. Left ventricular ejection fraction is calculated at 60%. Xr Chest Pa And Lateral 07/14/2014 1. No active disease. 7 :49 AM HPI and Hospital Course: The patient is a 58 y.o. male with significant past medical history of Multiple medical pro blems including diabetes mellitus, on insulin, hypertension, hyperlipidemia, and obstructive sleep apnea. The patient apparently is on long-term anticoagulation with Coumadin. About a week ago his INR was 2.4. He moved from [facility] assisted living [facility] to a home and he kelley s not been taking his medications as he needs assistance due to some developmental delay. To hernandez around 2 p.m. a nurse is supposed to come and set up his medications for the week. He has chronic back pain, COPD, on home O2 at 2 L nasal cannula, not on steroids. He has had h istory of falls too in the past 6 months, none recently. In March he was admitted with LORENA Calixto. He had echocardiogram which showed normal ejection fraction and diastolic filling pattern without pulmonary hypertension. He came to the hospital with chest pain. He had a negativ e stress test. When I saw him his pain was gone. He has a negative d-dimer. I am inclined towards musculoskeletal chest pain. He Had no CP, SOB, N/V, Diarrhea, Abdominal pain or KELLEY. No constipation or change in bowel habits. No orthopnea or PND. Appetite is good without abdominal bloating. No cough or fever. No dizziness, lightheadedness or any symptoms suggestive of stroke. Discharge Vitals: Filed Vitals: 07/14/14 0146 07/14/14 0220 07/14/14 0229 07/14/14 0710 BP: 158/74 161/77 150/76 Pulse: 64 70 60 Temp: 98.2 F (36.8 C) 98 F (36.7 C) TempSrc: Oral Resp: 13 14 18 Height: 1.676 m (5' 6") Weight: 106.7 kg (235 lb 3.7 oz) SpO2: 98% 97% 97% Discharge Exam: Constitutional: Alert and oriented to person, place, and time. Appears well-developed and w ell-nourished. Cardiovascular: Normal rate, regular rhythm, normal heart sounds with S1 and S2 and intact distal pulses. Exam reveals no gallop and no friction rub. No murmur heard. Pulmonary/Chest: Effort normal and breath sounds normal. No stridor. No respiratory distres s. no wheezes. no rales. exhibits no tenderness. Abdominal: Soft. Bowel sounds are normal. exhibits no distension and no mass. There is no t enderness. There is no rebound and no guarding. Musculoskeletal: Normal range of motion.exhibits no tenderness. exhibits no edema. Neurological: Alert and oriented to person, place, and time. Has normal reflexes. display s normal reflexes. No cranial nerve deficit. Exhibits normal muscle tone. Coordination norm al. Skin: Skin is warm and dry. No rash noted. No erythema. No pallor. Psychiatric: Has a normal mood and affect. Behavior is normal. Judgment normal. LABS: Recent Labs Lab 07/14/1442007/13/14202507/09/14 0323 WBC 9.38 9.79 9.33 HGB 12.1* 13.0* 12.3* HCT 38.2* 40.1 37.7* PLT 260 286 254 NEUTOPHILPCT 53.40 60.94 60.90 MONOPCT 11.30 9.76 11.37 Recent Labs Lab 07/14/1442007/13/14202507/09/14 0323 NA 139 143 142 K 3.7 3.4* 3.4* CL 106 107 107 CO2 31 26 31 BUN 19 17 12 CREATININE 1.02 1.15 1.04 PROT 6.4 7.3 7.1 BILITOT 0.3 0.4 0.3 ALT 13 22 21 AST 18 19 26 Recent Labs Lab 07/14/14 042 MG 1.9 Recent Labs Lab 07/14/1442007/13/14202507/09/14 0323 APTT -- 27 30 INR 1.1 1.2 1.2 Recent Labs Lab 07/14/14 0808 07/14/1442007/13/14202507/09/14 0323 CKTOTAL 107 119 151 211 TROPONINI <0.020 <0.020 -- <0.020 CKMBINDEX 1.5 1.4 1.6 1.4 Disposition: Home or Self Care Patient Instructions: Medication List CHANGE how you take these medications insulin glargine 100 UNIT/ML injection QTY: 10 mL Refills: 12 Commonly known as: LANTUS Inject 82 Units into the skin nightly. What changed: how much to take CONTINUE taking these medications amLODIPine 10 MG tablet QTY: 30 tablet Refills: 1 Commonly known as: NORVASC Take 1 tablet by mouth daily. antipyrine-benzocaine otic solution Refills: 0 Commonly known as: AURALGAN ARIPiprazole 15 MG tablet Refills: 0 Commonly known as: ABILIFY aspirin EC 81 MG EC tablet QTY: 14 tablet Refills: 0 Take 1 tablet by mouth daily with breakfast. BEANO Tabs Refills: 0 calcium carbonate 500 MG chewable tablet Refills: 0 Commonly known as: TUMS clonazePAM 1 MG tablet Refills: 0 Commonly known as: KlonoPIN clonidine Refills: 0 Commonly known as: CATAPRES diltiazem 240 MG 24 hr capsule QTY: 15 capsule Refills: 0 Commonly known as: CARDIZEM CD Take 1 capsule by mouth daily. 180 mg at hs DULERA 100-5 MCG/ACT inhaler Refills: 0 Generic drug: mometasone-formoterol fenofibrate 160 MG tablet Refills: 0 Commonly known as: TRICOR furosemide 20 MG tablet QTY: 7 tablet Refills: 0 Commonly known as: LASIX Take 1 tablet by mouth daily. gabapentin 100 MG capsule Refills: 0 Commonly known as: NEURONTIN * HYDROcodone-acetaminophen 5-325 MG per tablet Refills: 0 Commonly known as: NORCO * HYDROcodone-acetaminophen 7.5-325 MG per tablet QTY: 20 tablet Refills: 0 Commonly known as: NORCO Take 1 tablet by mouth every 6 (six) hours as needed for Pain. lamoTRIgine 100 MG tablet Refills: 0 Commonly known as: LaMICtal ksmygfrca-vdgmbtak-fdjtwbwsg hydroxide-simethicone Refills: 0 lisinopril 40 MG tablet QTY: 30 tablet Refills: 11 Commonly known as: ZESTRIL Take 1 tablet by mouth every evening. LORazepam 1 MG tablet Refills: 0 Commonly [...] 20= 4U, 121-150=5U, 151-180=6U, 181-210= 7U, 211- ondansetron 4 MG disintegrating tablet Refills: 0 Commonly known as: ZOFRAN-ODT PARoxetine 40 MG tablet Refills: 0 Commonly known as: PAXIL polyethylene glycol powder QTY: 527 g Refills: 5 Commonly known as: GLYCOLAX DISSOLVE 17GM IN LIQUID AND DRINK BY MOUTH EVERY DAY pravastatin 20 MG tablet Refills: 0 Commonly known as: PRAVACHOL psyllium 28 % packet QTY: 30 each Refills: 0 Commonly known as: METAMUCIL SMOOTH TEXTURE Take 1 packet by mouth daily. selenium sulfide 2.5 % lotion QTY: 120 mL Refills: 11 Commonly known as: SELSUN Apply to affected areas x 15 min for 2 weeks. Then just once a week for prophylaxis. tamsulosin 0.4 MG capsule Refills: 0 Commonly known as: FLOMAX tiotropium 18 MCG inhalation capsule Refills: 0 Commonly known as: SPIRIVA VENTOLIN HFA IN Refills: 0 warfarin 5 MG tablet QTY: 7 tablet Refills: 0 Commonly known as: COUMADIN Take 1 tablet by mouth daily. * Notice: This list has 2 medication(s) that are the same as other medications prescribed for you. Read the directions carefully, and ask your doctor or other care provider to revie w them with you. STOP taking these medications ciprofloxacin 500 MG tablet Commonly known as: CIPRO All the medication reviewed with the patient including Insulin Activity: activity as tolerated Diet: cardiac diet Wound Care: not applicable Follow-up with PCP 1 week Signed: Agustín Box MD 07/14/2014 9:15 AM Dictation software, Joinnus, used which may contain error for similar sounding words even af ter review. Personal communication requested for any clarification. documented in this encounter Medications at Time [...] Progress Notes Conversion Transaction, Provider Unknown - 07/14/2014 3:09 PM PDTFormatting of this note m ight be different from the original. Nurse Progress Note by Katerine Washington RN at 07/14/141508 Author: Katerine Washington RN Service: (none) Author Type: Registered Nurse Filed: 07/14/14 1510 Date of Service: 07/14/141508 Status: Signed Railway Track Worker: Katerine Washington RN (Registered Nurse) Pt discharged. IV removed. Instructions given and pt states understanding. No c/o at this time. Discharged home via Dial [facility] Ride onver ivana Transaction, Provider Unknown - 07/14/2014 2:39 PM PDT Case Management by Elaine Garcia RN at 07/14/14 422 Author: Elaine Garcia RN Service: (none) Author Type: Registered Nurse Filed: 07/14/14 143 Date of Service: 07/14/141438 Status: Signed Railway Track Worker: Elaine Garcia RN (Registered Nurse) Discharge planning: CM spoke with the lead RN and/or pt's RN regarding discharge needs. P er their report, they did not identify needs and feel that the pt does not need to be seen b y CM at this time. I encouraged them to enter a CM consult as needs arise. onver ivana Transaction, Provider Unknown - 07/14/2014 12:38 PM PDT Progress Notes by Katerine Washington RN at 07/14/14 1238 Author: Katerine Washington RN Service: (none) Author Type: Registered Nurse Filed: 07/14/14 1239 Date of Service: 07/14/141237 Status: Signed Railway Track Worker: Katerine Washington RN (Registered Nurse) Nrsg. Note: Pt back from stress test onver ivana Transaction, Provider Unknown - 07/14/2014 9:32 AM PDT Nurse Progress Note by Kenya Belle RN at 07/14/1432 Author: Kenya Belle RN Service: (none) Author Type: Registered Nurse Filed: 07/14/1432 Date of Service: 07/14/14931 Status: Signed Railway Track Worker: Kenya Belle RN (Registered Nurse) Visited patient for coumadin education. They have been taking Coumadin prior to this hospit alization and [facility] manages their dosing. Instructed to follow up for INR kylee ck within 3 days after discharge. Questions answered. Coumadin education booklet provided to reinforce Coumadin education. onver ivana Transaction, Provider Unknown - 07/14/2014 4:28 AM PDT Nurse Progress Note by Lynne Elizabeth RN at 07/14/14 0428 Author: Lynne Elizabeth RN Service: (none) Author Type: Registered Nurse Filed: 07/14/149 Date of Service: 07/14/14427 Status: Signed Railway Track Worker: Lynne Elizabeth, RN (Registered Nurse) Received call from John in ED regarding a d-dimer lab that wasn't completed. Informed Xander Ochoa and per verbal order it has been added on to the morning labs. onver ivana Transaction, Provider Unknown - 07/14/2014 3:32 AM PDT Progress Notes by Pepe Xie RPH at 07/14/14331 Author: Pepe Xie RPH Service: (none) Author Type: Pharmacist Filed: 07/14/14331 Date of Service: 07/14/14331 Status: Signed Railway Track Worker: Pepe Xie RPH (Pharmacist) Note ccl 79.2ml/min meds reviewed Pharmacy will follow rdc 0332 onver ivana Transaction, Provider Unknown - 07/13/2014 7:33 PM PDT Case Management by QUINN Richardson at 07/13/141932 Author: QUINN Richardson Service: (none) Author Type: Bee Farmer Filed: 07/13/141934 Date of Service: 07/13/141932 Status: Addendum Railway Track Worker: QUINN Richardson (Bee Farmer) Related Notes: Original Note by QUINN Richardson (Bee Farmer) filed at 07/13/141934 COLTON ALERT: ED VISIT COUNT (1 YR) IS 43 Care Recommendation: The following guidelines were formulated by the ED Care Guidelines Committee of the [facility] Consistent Care Program on May 21, 2013. No controlled substances should be administered in the ED or prescribed from the ED for sub jective pain. Medical/Surgical History: Primary Care Provider (PCP) is CRUZITO GUTIÉRREZ DO at [phone] . Notify PCP if giving any additional narcotics for objective findings. PCP supports enrollment in the [facility] Program. Medical History: 1. Diabetes-He is on a sliding scale after meals, routine insulin before meals and takes La ntus at night. A1C April, = 7.9%. He was referred to an validation scientist in February, 4. 2. Chest Pain- Coronary Angiography (10/20) showed no significant underlying CAD. His cardio logist is Dr Sterling. 3. COPD- He take symbicort, Spiriva and albuterol. 4. Hypertension- Patient feels that this is related to his anxiety. 5. Obstructive Sleep apnea- He is non-compliant with his CPAP-he has been referred to Dr. Jesus lockhart. 6. History of ARF- He has been referred to Dr. Lyons for nephrology. 7. Atrial Fibrillation-He is no longer on Plavix-taking asa. 8. Developmental delay 9. GI Bleed- EGD in February, shows 1.2 cm nodule at the GE junction (requiring managem ent in [place] at ), rectal ulcer and internal hemorrhoids. 10. Hernia- He has been referred to Dr. Vargas. Mental Health: He has depression and anxiety- This is managed by his PCP. He takes Paxil and abilify. He has been referred to [facility] in February. According to [facility], he never establish ed care. Patient has now been scheduled twice and cancels at the last minute. Social History: Mr. Gr lives independently at [facility]. He may require another level of care give n the number of ED visits at enrollment (22 in the last year)-please contact his [facility] Case Judit to (Fermin Preston) to discuss. Norah is developmentally delayed- Patient may benefit from having [facility]. He has applied for Dial-A-Ride services (April,) Applied for a Health Home for this client through [facility]- please review Provider One to determ ine if one has been assigned. Problem List: He needs to make regular visits to see his PCP in light of his chronic conditions. This patient is developmentally delayed and has multiple chronic conditions and providers. He would benefit from having a Numerical Control Lathe Operator assist him in coordinating his care. There is an alternate plan in place for Norah- He may take a taxi (paid for my ACCP) to the Urgent Care Clinic ([facility] on [address]) for evaluation instead of the ED. The have been provided his pertinent medical records. Norah and the [facility] are aware of this plan. Pain/Opioid Agreement: He does not have a diagnosis of chronic pain. Please see LAUNDROMAT WORKER for prescribing history. Social History or Identified Risk: - Fall Risk - Non adherence - Transportation Issues Additional Information: This patient is case managed by the [facility] Program. Please contact the electrical prospecting engineer at your hospital for any immediate or post ED discharge needs this patient may have. Please contact Tari at [facility] at when patient pr esents to ED. You may also contact for additional information These are guidelines and the provider should exercise clinical judgment when providing care . Last Modified by Starla Lewis on June 23, 2014 Created by Ema Laura on May 24, 2013 docume nted in this encounter H&P Notes Elizabeth Ochoa - 07/14/2014 1:25 AM PDTFormatting of this note might be different from th e original. H&P by Elizabeth Ochoa MD at 07/14/14124 Author: Elizabeth Ochoa MD Service: Hospitalist Author Type: Physician Filed: 07/25/14 0604 Date of Service: 07/14/14124 Status: Signed Railway Track Worker: Elizabeth Ochoa MD (Physician) [facility] Service: Hospitalist Admission History & Physical Date of Admission: 07/13/2014 Requesting Physician: Dr Henriquez, Emergency Department Reason for Admission: Chest pain , r/o ACS History Obtained From: patient, chart review, Quality of history: good CHIEF COMPLAINT: Chief Complaint Chief Complaint Patient presents with Dizziness Otalgia bilateral Shaking "I checked my blood sugar and it was 127" Chest Pain HISTORY OF PRESENT ILLNESS The patient is a 58 y.o. male with significant past medical history of Multiple medical pro blems including diabetes mellitus, on insulin, hypertension, hyperlipidemia, and obstructive sleep apnea. The patient apparently is on long-term anticoagulation with Coumadin for chron ic paroxysmal atrial fibrillation. About a week ago his INR was 2.4. He moved from [facility] to a home and he has not been taking his medications as he needs ass istance due to some developmental delay. Tomorrow around 2 p.m. a nurse is supposed to come and set up his medications for the week. He has chronic back pain, COPD, on home O2 at 2 L n josiah cannula, not on steroids. Has history of falls too in the past 6 months, none recently. In March he was admitted with TIA. He had echocardiogram in april 2014, which showed nor mal ejection fraction and diastolic filling pattern without pulmonary hypertension. His mode nary angiogram in 2013 showed normal left ventricular ejection fraction and minimal atherosc leroses of the RCA . The patient presented to the ED with a chief complaint of substernal chest pain that was no tasia while in the roman catholic at rest around 12:30 p.m. It was 3 out of 10 intensity associated wi th lightheadedness, shortness of breath, diaphoresis, and nausea. He denied any vomiting or syncope. He reported some radiation to the back. It was not pleuritic in nature. He tried to rest at home without relief. He did not take any aspirin or nitroglycerin at home. He denie d any history of DVT or PE. No recent trauma to the chest wall and no recent travel. No repo rt of GI bleeding. Known history of GERD, stable. Denies fever, chills, cough, aspiration. F abdelrahmangina then drove him to the ED for evaluation of chest pain. Workup showed normal CBC, mild hypokalemia, normal renal function, controlled hyperglycemia , normal LFT, and first set of cardiac enzymes. Vital signs were stable except mildly hypert ensive. Chest x-ray did not show acute infiltrates. Official report is pending. His INR was 1.2 therefore subtherapeutic. EKG did not show any STEMI. Hospitalist service was consulted to admit for rule out acute coronary syndrome given multiple risk factors. At this time, aft er 2 nitroglycerin, he is chest pain free. REVIEW OF SYSTEMS Review of Systems CONSTITUTIONAL: No recent change in weight or appetite. No fever, no chills. HEENT: Denies any headache, dysphagia, aspiration, thrush, or acute change in vision. NECK: Denies any neck pain or neck stiffness. RESPIRATORY: WARD Uses CPAP intermittently. He is on oxygen, 2 L nasal cannula 24/7. COPD is stable. Denies any cough, pleuritic chest pain, hemoptysis, or wheezing. CARDIOVASCULAR: No previous history of ND or congestive heart failure. Has known history of paroxysmal atrial fibrillation. Denies edema, PND, orthopnea. GASTROINTESTINAL: No abdominal pain, distention, nausea or vomiting, constipation, GI bleed ing. GENITOURINARY: No dysuria, polyuria, or hematuria, has history of urinary retention, on Jesus Alberto max. On July 09, he was treated for urinary tract infection with ciprofloxacin for 3 days. Cu ltures grew mixed anatoly. EXTREMITIES: Bilateral lower extremities with no pain, swelling, redness. NEUROLOGIC: History of TIA. At this time, no new focal neurological symptoms. Denies histor y of seizures. Has some developmental delay. DERMATOLOGIC: No rash or decubitus ulcers. PSYCHIATRIC: Anxiety and depression, controlled. Past Medical History Diagnosis Date Diabetes mellitus type II Atrial fibrillation (HCC) Hypertension Hyperlipidemia Anxiety Depression Renal failure ARF (acute renal failure) ([facility]) 03/02/2013 COPD (chronic obstructive pulmonary disease) ([facility]) 03/02/2013 hypoxemia on 2 lts nc Development delay Unspecified visual disturbance reading glasses WARD (obstructive sleep apnea) 08/11/2012 does not use CPAP because of the noise GIB (gastrointestinal bleeding) 03/02/[address] Nur, rectal ulcers, nodule of GE junction Hypercholesterolemia 07/08/2013 Obesity, Class I, BMI 30-34.9 07/08/2013 Facial droop 07/08/2013 Basal cell carcinoma 09/26/2012 arm and back Other chronic pain Stroke (HCC) TIA (transient ischemic attack) penitentiary (current) use of 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 Past Surgical History Procedure Laterality Date Unlisted procedure arthroscopy Knee surgery rt knee, patella Leg surgery LLE Colonoscopy Cholecystectomy, laparoscopic 09/12/2012 Procedure: LAPAROSCOPIC - CHOLECYSTECTOMY; Surgeon: Jevon Vargas DO; Location: [facility] MAIN OR; Service: General; 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; Abdominal surgery Cholecystectomy Skin cancer excision 10/10/2012 Procedure: EXCISION - SKIN CANCER; Surgeon: Sy Fierro MD; Location: [facility] MAIN OR ; Service: Plastics; Laterality: Left; upper arm and upper back w/frozen section Esophagogastroduodenoscopy 03/03/2013 Procedure: ESOPHAGOGASTRODUODENOSCOPY; Surgeon: Howie Gibson MD; Location: [facility] ENDOSCOPY; S ervice: Gastroenterology; 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; Colonoscopy 03/04/2013 Procedure: COLONOSCOPY; Surgeon: Howie Gibson MD; Location: [facility] ENDOSCOPY; Service: Gastroe nterology; 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; Upper gastrointestinal endoscopy Skin biopsy Hernia repair 07/03/2013 Procedure: LAPAROSCOPIC - HERNIA - INCISIONAL; Surgeon: Jevon Vargas DO; Location: [facility] MAIN OR; Service: General; 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; Skin lesion excision Left 05/05/2014 Procedure: EXCISION - LESION - FROZEN SECTION; Surgeon: Sy Fierro MD; Location: [facility] MAIN OR; Service: Plastics; Laterality: Left; forearm Allergies Allergen Reactions Vitamin B12 Rash Prior to Admission medications Medication Sig Start Date End Date Taking? Authorizing Provider Albuterol Sulfate (VENTOLIN HFA IN) Inhale 2 puffs into the lungs as needed. 108 mcg/act Historical Provider Blkzz-H-Zanogzpuujkng (BEANO) TABS Take 150 Units by mouth 3 (three) times daily as needed (As needed for gas). Historical Provider amLODIPine (NORVASC) 10 MG tablet Take 1 tablet by mouth daily. 12/03/13 Augustine ramírez MD antipyrine-benzocaine (AURALGAN) otic solution Place 4 drops into both ears daily. Histo rical Provider ARIPiprazole (ABILIFY) 15 MG tablet Take 10 mg by mouth daily. Historical Provider aspirin EC 81 MG EC tablet Take 1 tablet by mouth daily with breakfast. 05/08/14 05/08/15 Mervat Flowers DO calcium carbonate (TUMS) 500 MG chewable tablet Take 500-1,000 mg by mouth daily as needed. For GERD Historical Provider clonazePAM (KLONOPIN) 1 MG tablet Take 0.5 mg by mouth 2 (two) times daily as needed for An xiety. Historical Provider clonidine (CATAPRES) Place 1 patch onto the skin once a week. 0.2mg/hr Indications: last d ose place 05/02 Historical Provider diltiazem (CARDIZEM CD) 240 MG 24 hr capsule Take 1 capsule by mouth daily. 180 mg at hs 05/07/14 Lorna Looney MD fenofibrate (TRIGLIDE) 160 MG tablet Take 160 mg by mouth daily. Historical Provider furosemide (LASIX) 20 MG tablet Take 1 tablet by mouth daily. 04/09/14 04/09/15 Marcos eastman MD gabapentin (NEURONTIN) 100 MG capsule Take 100 mg by mouth every evening. Historical Pro vider HYDROcodone-acetaminophen (NORCO) 5-325 MG per tablet Take 1 tablet by mouth every 6 (six) hours as needed for Pain. Historical Provider HYDROcodone-acetaminophen (NORCO) 7.5-325 MG per tablet Take 1 tablet by mouth every 6 (six ) hours as needed for Pain. 04/29/14 04/29/15 Sy Fierro MD insulin glargine (LANTUS) 100 UNIT/ML injection Inject 82 Units into the skin nightly. Patient taking differently: Inject 60 Units into the skin nightly. 12/03/13 Augustine Agosto MD lamoTRIgine (LAMICTAL) 100 MG tablet Take 100 mg by mouth nightly. Historical Provider qddxpjxxw-ztwtaucq-ncuzmbmdo hydroxide-simethicone Take 40 mLs by mouth daily as needed. Historical Provider lisinopril (ZESTRIL) 40 MG tablet Take 1 tablet by mouth every evening. 05/07/14 05/07/15 Cm MD LORazepam (ATIVAN) 1 MG tablet Take 1 mg by mouth every 6 (six) hours as needed for Anxiety . Historical Provider meclizine (ANTIVERT) 25 MG tablet Take 25 mg by mouth 3 (three) times daily as needed. H istorical Provider Mometasone Furo-Formoterol Fum (DULERA) 100-5 MCG/ACT [...] 181-210= 7U, 211- 04/23/13 Ramesh Yeh MD ondansetron (ZOFRAN-ODT) 4 MG disintegrating tablet Take 4 mg by mouth every 6 (six) hours as needed for Nausea. Historical Provider paroxetine (PAXIL) 40 MG tablet Take 40 mg by mouth every morning. Historical Provider polyethylene glycol (GLYCOLAX) powder DISSOLVE 17GM IN LIQUID AND DRINK BY MOUTH EVERY DAY 04/23/13 Bang Yeh MD pravastatin (PRAVACHOL) 20 MG tablet Take 80 mg by mouth nightly. Historical Provider psyllium (METAMUCIL SMOOTH TEXTURE) 28 % packet Take 1 packet by mouth daily. 04/28/14 Joe Chao MD selenium sulfide (SELSUN) 2.5 % lotion Apply to affected areas x 15 min for 2 weeks. Then j ust once a week for prophylaxis. 06/26/14 06/26/15 TERRY Agosto tamsulosin (FLOMAX) 0.4 MG capsule Take 0.4 mg by mouth 2 (two) times daily. Administer 30 minutes after the same meal each day. Capsules should be swallowed whole; do not crush, chew , or open Historical Provider tiotropium (SPIRIVA) 18 MCG inhalation capsule Inhale 18 mcg into the lungs daily. Histo rical Provider warfarin (COUMADIN) 5 MG tablet Take 1 tablet by mouth daily. 05/08/14 Yesica Flowers DO Family History Problem Relation Age of Onset Heart disease Father Heart disease Sister Diabetes type II Sister Heart Problems Brother History Social History Marital Status: Spouse Name: [...] Lives alone x 1 wk, moved from [facility], , 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 2 falls in the last 6 months. History Smoking status Never Smoker Smokeless tobacco Never Used History Alcohol Use 0.0 oz/week 1-2 Cans of beer per week Comment: once week, occasionally History Drug Use No PHYSICAL EXAM Vital Signs: BP 166/79 | Pulse 73 | Temp(Src) 97.3 F (36.3 C) (Oral) | Resp 18 | Wt 106.7 kg (235 lb 3.7 oz) | SpO2 95% Physical Exam GENERAL: The patient is obese, hypertensive, chest pain free, on 2 L saturating 95%, no res piratory distress. HEENT: Pupils equal and reactive to light, anicteric. Moist oral mucosa, no thrush. NECK: Supple, no JVD, no lymphadenopathy, no thyromegaly. LUNGS: Clear to auscultation bilaterally. No wheezes or rales. Respirations not labored. HEART: Regular rate and rhythm, no gallop, no murmur. No chest wall tenderness to palpation . ABDOMEN: Has ventral hernia that is reducible and soft, nontender, nondistended. No guardin g, no rigidity, bowel sounds present normally. EXTREMITIES: Bilateral lower extremities with no signs of DVT, cellulitis, or ankle edema. SKIN: No rash or decubitus ulcers. BACK: Normal inspection, no point tenderness to the spine, no CVA tenderness. NEUROLOGIC: Grossly nonfocal. PSYCHIATRIC: Normal mood and affect. DATA Results for orders placed or performed during the hospital encounter of 07/13/14 (from the past 24 hour(s)) Cardiac Panel Collection Time: 07/13/14 8:26 PM Result Value Ref Range WBC 9.79 3.80 - 11.00 K/uL RBC 5.13 4.20 - 5.70 M/uL HGB 13.0 (L) 13.2 - 17.0 g/dL HCT 40.1 39.0 - 50.0 % MCV 78.1 (L) 80.0 - 100.0 fl MCH 25.3 (L) 27.0 - 34.0 pg MCHC 32.4 32.0 - 35.5 g/dL RDW SD 47.3 37 - 53 fl PLT 286 150 - 400 K/uL MPV 7.5 fl DIFF TYPE AUTOMATED NEUTROPHILS 60.94 % LYMPHOCYTES 26.14 % MONOCYTES 9.76 % EOSINOPHILS 2.70 % BASOPHILS 0.46 % NEUTROPHILS ABS 5.97 1.90 - 7.40 K/uL LYMPHOCYTES ABS 2.56 1.00 - 3.90 K/uL MONOCYTES ABS 0.96 (H) 0.00 - 0.80 K/uL EOSINOPHILS ABS 0.26 0.00 - 0.50 K/uL BASOPHILS ABS 0.05 0.00 - 0.10 K/uL SODIUM 143 135 - 143 mmol/L POTASSIUM 3.4 (L) 3.5 - 4.9 mmol/L CHLORIDE 107 99 - 109 mmol/L CO2 26 23 - 32 mmol/L ANION GAP AGAP 14 5 - 20 mmol/L GLUCOSE 150 (H) 65 - 99 mg/dL BUN 17 8 - 25 mg/dL CREATININE 1.15 0.70 - 1.30 mg/dL BUN/CREAT 15 CALCIUM 9.1 8.5 - 10.5 mg/dL TOTAL PROTEIN 7.3 6.3 - 8.2 g/dL Albumin 3.4 (L) 3.6 - 5.0 g/dL GLOBULIN 3.8 1.3 - 4.9 g/dL A/G 0.9 (L) 1.0 - 2.4 TBIL 0.4 0.1 - 1.5 mg/dL ALK PHOS 86 35 - 115 U/L AST 19 10 - 45 U/L ALT 22 10 - 65 U/L EGFR >60 >60 mL/min/1.73m2 CPK 151 55 - 400 U/L INR 1.2 APTT 27 23 - 32 seconds MMB 2.4 0.5 - 3.6 ng/mL CK-MB Index 1.6 POC cardiac troponin Collection Time: 07/13/14 8:33 PM Result Value Ref Range POC CARDIAC TROPONIN 0.00 0.00 - 0.10 ng/mL Troponin, iStat Collection Time: 07/13/14 8:48 PM Result Value Ref Range POC Troponin I 0.00 POCT glucose Collection Time: 07/13/14 11:34 PM Result Value Ref Range GLUCOSE,POC SCREEN 121 (H) 65 - 99 mg/dL ED Glucose bedside Collection Time: 07/13/14 11:36 PM Result Value Ref Range POC GLUCOSE 121 POC clinitek 10 Collection Time: 07/13/14 11:53 PM Result Value Ref Range Color, UA YELLOW Clarity, UA CLEAR Glucose, UA NEGATIVE NEGATIVE mg/dL Bilirubin, UA NEGATIVE NEGATIVE Ketones, UA NEGATIVE NEGATIVE mg/dL Spec Grav, UA 1.015 1.001 - 1.035 Blood, UA NEGATIVE NEGATIVE pH, UA 6.0 4.6 - 8.0 Protein, UA 30 (A) NEGATIVE mg/dL Urobilinogen, UA 0.2 <1.1 mg/dL Nitrite, UA NEGATIVE NEGATIVE WBC, UA NEGATIVE NEGATIVE Urine screen (POC) Collection Time: 07/14/14 12:01 AM Result Value Ref Range Color, UA see poc results Clarity, UA Glucose, UA Bilirubin, UA Ketones, UA Spec Grav, UA Blood, UA pH, UA 5 - 7.5 Protein, UA Urobilinogen, UA 0.2 - 1 Leukocytes, UA Nitrite, UA EKG NSR HR 64 no STEMI CXR:official report pending, no acute infiltrates. Old records: Echo cardiac adult complete [ECHO50] Status: Final result Study Result Patient Name: NORAH GR Date of : 1955 Performing Physician: Marcelino Edgar MD INDICATIONS STROKE/TIA, no IV CONCLUSIONS 1. Overall left ventricular systolic function is normal with, an EF between 65 - 70 %. 2. The diastolic filling pattern is normal for the age of the patient. 3. There is no evidence of pulmonary hypertension. 4. Bubble study was not done. Receiver Setter: KVW Authenticated by: Marcelino Edgar MD Report Date/Time: 05-06-2014 13:25:14 CORONARY ANGIOGRAPHY The coronary system was right dominant. 1. The left main bifurcated into LAD and left circumflex. Left main was free of disease. 2. Left anterior descending artery has minimal atherosclerosis and was a big vessel in diameter. 3. Left circumflex coronary artery and the marginal branches were free of disease. 4. Right coronary artery has minimal atherosclerosis. LEFT VENTRICULOGRAM The left ventriculogram in FARFAN view showed normal chandrika left ventricle, ejection fraction of 60%. CONCLUSIONS AND RECOMMENDATIONS 1. Minimal atherosclerosis with big diameter vessels. 2. Normal left ventricular systolic function. 3. Recommend evaluation for nonischemic chest pain. 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 In 2007 , the patient did not have any significant atherosclerotic heart disease. Will admit for obs ervation with continuous telemetry monitoring and if he rules out he will undergo stress sarah t in a.m. for risk stratification. Since he reported some radiation to the back, ordered D-d marcia. Paroxysmal atrial fibrillation, on long-term anticoagulation with Coumadin and CHADS2 score of 2. Today INR is 1.2, as he has not been taking his Coumadin for the past week as he need s assistance with medications due to developmental delay. Resumed Coumadin. Ordered subcutan eous heparin for DVT prophylaxis which needs to be discontinued once INR is greater than 2. Daily pro time/INR ordered. Diabetes mellitus type 2, with controlled hyperglycemia. Resume home doses of insulin and l ow-dose insulin sliding scale, then adjust as needed. Hypertension. Not adequately controlled. Goal is to keep systolic blood pressures less than 140. Resume home medications. Adjust as needed. COPD, on home O2 at 2 L nasal cannula, stable. Continue bronchodilators. No indication for steroids at this time. Chronic low back pain, stable. Resume home narcotic pain medication. Obstructive sleep apnea. Resume CPAP. Obesity. Counseled on weight reduction. Anxiety, depression, stable. Resume home medications. Disposition: observation Code Status: Full code Primary Care Physician: EDIN Ochoa MD 07/14/2014 documented in this e ncounter Procedure Notes Leann Vang ARNP - 07/14/2014 12:02 PM PDTFormatting of this note might be different fr om the original. Procedures by CITLALY Alamo at 07/14/14 1202 Author: CITLALY Alamo Service: Radiology Author Type: Advanced Registered Nurse Bj calvillo Filed: 07/14/14 1200 Date of Service: 07/14/14 120 Status: Signed Railway Track Worker: CITLALY Alamo (Mary Registered Nurse Ricky) Pre-procedure Diagnoses: 1. Acute chest pain [786.50] Post-procedure Diagnoses: 1. Acute chest pain [786.50] Procedures: 1. NM MYOCARDIAL PERFUSION SPECT - STRESS AND REST [RXX967 (Custom)] [facility] Service: Diagnostic Imaging/Nuclear Medicine Cardiac Stress Test Note Type of Stress Test performed (protocol): Pharmacologic stress test Virgil protocol time (if applicable): N/A Rhythm changes: None Ectopy: PVCs Symptoms experienced during exam: None ST/T wave changes: None Medications administered: Lexiscan 0.4 mg Atkinson Treadmill Score: N/A CITLALY Alamo 07/14/2014 12:03 PM documented in this encounter ED Notes Conversion Transaction, Provider Unknown - 07/14/2014 2:26 AM PDTFormatting of this note m ight be different from the original. ED Notes by John Philippe RN at 07/14/14225 Author: John Philippe RN Service: Emergency Department Author Type: Registered Nurse Filed: 07/14/14226 Date of Service: 07/14/14225 Status: Signed Railway Track Worker: John Philippe RN (Registered Nurse) Lab called and reported the pt's blood was too old to run a d-dimer. The pt was already adm itted and moved to CDU when I received this news. I have called and informed EVE Batista i n CDU (pt's RN) of this. She reports she will ask Dr. Ochoa if she would like this lab done and blood re-drawn. John Philippe RN 07/14/14226 onver ivana Transaction, Provider Unknown - 07/14/2014 1:33 AM PDT ED Notes by John Philippe RN at 07/14/14132 Author: John Philippe RN Service: Emergency Department Author Type: Registered Nurse Filed: 07/14/14132 Date of Service: 07/14/14132 Status: Signed Railway Track Worker: John Philippe RN (Registered Nurse) Pt repositioned, blankets applied to back for comfort. John Philippe RN 06/08/15 0133 onver ivana Transaction, Provider Unknown - 07/13/2014 11:55 PM PDT ED Notes by John Philippe RN at 07/13/142354 Author: John Philippe RN Service: Emergency Department Author Type: Registered Nurse Filed: 07/14/142357 Date of Service: 07/13/142354 Status: Signed Railway Track Worker: John Philippe RN (Registered Nurse) chase Lerner the pt will have intermittent episodes where he will desaturate to 88%, a t rest, asymptomatic while this occurs. After a few seconds he will go back to nl 97% John Philippe RN 07/14/14 0001 onver ivana Transaction, Provider Unknown - 07/13/2014 11:54 PM PDT ED Notes by John Philippe RN at 07/13/142353 Author: John Philippe RN Service: Emergency Department Author Type: Registered Nurse Filed: 07/13/142353 Date of Service: 07/13/142353 Status: Signed Railway Track Worker: John Philippe RN (Registered Nurse) Pt assisted to side of bed and stood up, he was able to produce urine specimen. Will dip. John Philippe RN 07/13/142353 onver ivana Transaction, Provider Unknown - 07/13/2014 11:42 PM PDT ED Notes by John Philippe RN at 07/13/142341 Author: John Philippe RN Service: Emergency Department Author Type: Registered Nurse Filed: 07/13/142342 Date of Service: 07/13/142341 Status: Addendum Railway Track Worker: John Philippe RN (Registered Nurse) Related Notes: Original Note by John Philippe RN (Registered Nurse) filed at 07/13/14 23 43 Pt is unsure of the names of his medications, because of this I am unable to complete med r ec with correct and current meds as well as accurate time and date of last doses. He does no t have a med list with him. John Philippe RN 07/13/142342 onver ivana Transaction, Provider Unknown - 07/13/2014 11:39 PM PDT ED Notes by John Philippe RN at 07/13/142338 Author: John Philippe RN Service: Emergency Department Author Type: Registered Nurse Filed: 07/13/142339 Date of Service: 07/13/142338 Status: Signed Railway Track Worker: John Philippe RN (Registered Nurse) Pt given turkey sandwich and water, approved by Ana Philippe RN 07/13/142339 onver ivana Transaction, Provider Unknown - 07/13/2014 10:50 PM PDT ED Notes by John Philippe RN at 07/13/142249 Author: John Philippe RN Service: Emergency Department Author Type: Registered Nurse Filed: 07/13/142308 Date of Service: 07/13/142249 Status: Signed Railway Track Worker: John Philippe RN (Registered Nurse) Ana Barrios informed of pt's abd pain and request for pain meds. John Philippe RN 07/13/142308 onver ivana Transaction, Provider Unknown - 07/13/2014 10:45 PM PDT ED Notes by John Philippe RN at 07/13/142244 Author: John Philippe RN Service: Emergency Department Author Type: Registered Nurse Filed: 07/13/142244 Date of Service: 07/13/142244 Status: Signed Railway Track Worker: John Philpipe RN (Registered Nurse) Pt c/o pain and requesting pain medication for his abd cramps. John Philippe RN 07/13/142244 onver ivana Transaction, Provider Unknown - 07/13/2014 10:15 PM PDT ED Notes by John Philippe RN at 07/13/142214 Author: John Philippe RN Service: Emergency Department Author Type: Registered Nurse Filed: 07/13/142224 Date of Service: 07/13/142214 Status: Signed Railway Track Worker: John Philippe RN (Registered Nurse) Pt returned from XR, placed back on monitor. John Philippe RN 07/13/142224 onver ivana Transaction, Provider Unknown - 07/13/2014 9:58 PM PDT ED Notes by John Philippe RN at 07/13/142157 Author: John Phliippe RN Service: Emergency Department Author Type: Registered Nurse Filed: 07/13/142158 Date of Service: 07/13/142157 Status: Signed Railway Track Worker: John Philippe RN (Registered Nurse) Pt declines third dose of subL NTG at this time, he states he does not like the taste. John Philippe RN 07/13/142158 onver ivana Transaction, Provider Unknown - 07/13/2014 9:54 PM PDT ED Notes by Jonh Philippe RN at 07/13/142153 Author: John Philippe RN Service: Emergency Department Author Type: Registered Nurse Filed: 07/13/142156 Date of Service: 07/13/142153 Status: Signed Railway Track Worker: John Philippe RN (Registered Nurse) Nitroglycerin SL tablet 0.4 mg given. Dose: 0.4 mg Route: subL Comment: pt with persistent CP to substernal area, 3/10 unchanged after 1st dose. Second dose given per admin instructions, by Ana Philippe RN 07/13/142156 onver ivana Transaction, Provider Unknown - 07/13/2014 9:49 PM PDT ED Notes by John Philippe RN at 07/13/142148 Author: John Philippe RN Service: Emergency Department Author Type: Registered Nurse Filed: 07/13/142201 Date of Service: 07/13/142148 Status: Signed Railway Track Worker: John Philippe RN (Registered Nurse) Pt informed of need for urine specimen. Instructed pt on how to obtain clean catch urine sa mple. Pt verbalizes understanding. He states he does not have to go to urinate at this time. John Philippe RN 07/13/142201 Ana Zuñiga PA-C - 07/13/2014 8:54 PM PDTFormatting of this note might be different from the o riginal. ED Provider Notes by Ana Victoria PA-C at 07/13/142053 Author: Ana Victoria PA-C Service: Emergency Department Author Type: Physician Concrete Analyst - Certified Filed: 07/14/14 2055 Date of Service: 07/13/142053 Status: Attested Railway Track Worker: Ana Victoria PA-C (Physician Concrete Analyst - Certified) Cosigner: Yesica Flowers DO at 07/15/141833 Attestation signed by Yesica Flowers DO at 07/15/141833 I agree with the evaluation and management, I have read the note. We have discussed the nicholas e. Procedures [facility] Department of Emergency Medicine HPI History of Present Illness Patient Identification Norah Gr is a 58 y.o. male. Patient information was obtained from patient. History/Exam limitations: none. Patient presented to the Emergency Department by: Car dropped off by his friend. Chief Complaint Chief Complaint Patient presents with Dizziness Otalgia bilateral Shaking "I checked my blood sugar and it was 127" Chest Pain The patient complains of " EARS ARE POPPING, MY CHEST HAS TIGHTNESS AND I WAS FEELING NERVO US THAT MY BLOOD PRESSURE WAS HIGH. " Chest tightness 03/18 . This chest tightness occurred as he was sitting in [employer] at 11am to day. Chest pain radiated to his throat and right side of his neck. He felt nauseated and latisha rt of breath. Patient's cardiac risk factors include: HTN DM Care prior to arrival consisted of paolodaniel kofi Living on his own for one week - used to reside at [facility], but he wanted t o be on his own. States a nurse is supposed to be coming tomorrow to his place to set up his mediacations for the week d/t to his "learning disability" PCP:Jean-Claude Aparicio Past Medical History Diagnosis Date Diabetes mellitus type II Atrial fibrillation (HCC) Hypertension Hyperlipidemia Anxiety Depression Renal failure ARF (acute renal failure) ([facility]) 03/02/2013 COPD (chronic obstructive pulmonary disease) ([facility]) 03/02/2013 hypoxemia on 2 lts nc Development delay Unspecified visual disturbance reading glasses WARD (obstructive sleep apnea) 08/11/2012 does not use CPAP because of the noise GIB (gastrointestinal bleeding) 03/02/[address] Nur, rectal ulcers, nodule of GE junction Hypercholesterolemia 07/08/2013 Obesity, Class I, BMI 30-34.9 07/08/2013 Facial droop 07/08/2013 Basal cell carcinoma 09/26/2012 arm and back Other chronic pain Stroke (HCC) TIA (transient ischemic attack) [facility] (current) use of 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 Past Surgical History Procedure Laterality Date Unlisted procedure arthroscopy Knee surgery rt knee, patella Leg surgery LLE Colonoscopy Cholecystectomy, laparoscopic 09/12/2012 Procedure: LAPAROSCOPIC - CHOLECYSTECTOMY; Surgeon: Jevon Vargas DO; Location: [facility] MAIN OR; Service: General; 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; Abdominal surgery Cholecystectomy Skin cancer excision 10/10/2012 Procedure: EXCISION - SKIN CANCER; Surgeon: Sy Fierro MD; Location: [facility] MAIN OR ; Service: Plastics; Laterality: Left; upper arm and upper back w/frozen section Esophagogastroduodenoscopy 03/03/2013 Procedure: ESOPHAGOGASTRODUODENOSCOPY; Surgeon: Howie Gibson MD; Location: [facility] ENDOSCOPY; S ervice: Gastroenterology; 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; Colonoscopy 03/04/2013 Procedure: COLONOSCOPY; Surgeon: Howie Gibson MD; Location: [facility] ENDOSCOPY; Service: Gastroe nterology; 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; Upper gastrointestinal endoscopy Skin biopsy Hernia repair 07/03/2013 Procedure: LAPAROSCOPIC - HERNIA - INCISIONAL; Surgeon: Jevon Vargas DO; Location: [facility] MAIN OR; Service: General; 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; Skin lesion excision Left 05/05/2014 Procedure: EXCISION - LESION - FROZEN SECTION; Surgeon: Sy Fierro MD; Location: [facility] MAIN OR; Service: Plastics; Laterality: Left; forearm Prior to Admission medications Medication Sig Start Date End Date Taking? Authorizing Provider Albuterol Sulfate (VENTOLIN HFA IN) Inhale 2 puffs into the lungs as needed. 108 mcg/act Historical Provider Hxrfi-Z-Xzfbocwclnoeg (BEANO) TABS Take 150 Units by mouth 3 (three) times daily as needed (As needed for gas). Historical Provider amLODIPine (NORVASC) 10 MG tablet Take 1 tablet by mouth daily. 12/03/13 Augustine ramírez MD antipyrine-benzocaine (AURALGAN) otic solution Place 4 drops into both ears daily. Histo rical Provider ARIPiprazole (ABILIFY) 15 MG tablet Take 10 mg by mouth daily. Historical Provider aspirin EC 81 MG EC tablet Take 1 tablet by mouth daily with breakfast. 05/08/14 05/08/15 Mervat Flowers DO calcium carbonate (TUMS) 500 MG chewable tablet Take 500-1,000 mg by mouth daily as needed. For GERD Historical Provider ciprofloxacin (CIPRO) 500 MG tablet Take 1 tablet by mouth 2 (two) times daily. 07/09/14 CITLALY Rosario clonazePAM (KLONOPIN) 1 MG tablet Take 0.5 mg by mouth 2 (two) times daily as needed for An xiety. Historical Provider clonidine (CATAPRES) Place 1 patch onto the skin once a week. 0.2mg/hr Indications: last d ose place 05/02 Historical Provider diltiazem (CARDIZEM CD) 240 MG 24 hr capsule Take 1 capsule by mouth daily. 180 mg at hs 05/07/14 Lorna Looney MD fenofibrate (TRIGLIDE) 160 MG tablet Take 160 mg by mouth daily. Historical Provider furosemide (LASIX) 20 MG tablet Take 1 tablet by mouth daily. 04/09/14 04/09/15 Marcos eastman MD gabapentin (NEURONTIN) 100 MG capsule Take 100 mg by mouth every evening. Historical Pro vider HYDROcodone-acetaminophen (NORCO) 5-325 MG per tablet Take 1 tablet by mouth every 6 (six) hours as needed for Pain. Historical Provider HYDROcodone-acetaminophen (NORCO) 7.5-325 MG per tablet Take 1 tablet by mouth every 6 (six ) hours as needed for Pain. 04/29/14 04/29/15 Sy Fierro MD insulin glargine (LANTUS) 100 UNIT/ML injection Inject 82 Units into the skin nightly. Patient taking differently: Inject 60 Units into the skin nightly. 12/03/13 Augustine Agosto MD lamoTRIgine (LAMICTAL) 100 MG tablet Take 100 mg by mouth nightly. Historical Provider fdwsbnlvr-rmgnrled-raaxiwvdd hydroxide-simethicone Take 40 mLs by mouth daily as needed. Historical Provider lisinopril (ZESTRIL) 40 MG tablet Take 1 tablet by mouth every evening. 05/07/14 05/07/15 Cm MD LORazepam (ATIVAN) 1 MG tablet Take 1 mg by mouth every 6 (six) hours as needed for Anxiety . Historical Provider meclizine (ANTIVERT) 25 MG tablet Take 25 mg by mouth 3 (three) times daily as needed. H istorical Provider Mometasone Furo-Formoterol Fum (DULERA) 100-5 MCG/ACT [...] 181-210= 7U, 211- 04/23/13 Ramesh Yeh MD ondansetron (ZOFRAN-ODT) 4 MG disintegrating tablet Take 4 mg by mouth every 6 (six) hours as needed for Nausea. Historical Provider paroxetine (PAXIL) 40 MG tablet Take 40 mg by mouth every morning. Historical Provider polyethylene glycol (GLYCOLAX) powder DISSOLVE 17GM IN LIQUID AND DRINK BY MOUTH EVERY DAY 04/23/13 Bang Yeh MD pravastatin (PRAVACHOL) 20 MG tablet Take 80 mg by mouth nightly. Historical Provider psyllium (METAMUCIL SMOOTH TEXTURE) 28 % packet Take 1 packet by mouth daily. 04/28/14 Joe Chao MD selenium sulfide (SELSUN) 2.5 % lotion Apply to affected areas x 15 min for 2 weeks. Then j ust once a week for prophylaxis. 06/26/14 06/26/15 TERRY Agosto tamsulosin (FLOMAX) 0.4 MG capsule Take 0.4 mg by mouth 2 (two) times daily. Administer 30 minutes after the same meal each day. Capsules should be swallowed whole; do not crush, chew , or open Historical Provider tiotropium (SPIRIVA) 18 MCG inhalation capsule Inhale 18 mcg into the lungs daily. Histo rical Provider warfarin (COUMADIN) 5 MG tablet Take 1 tablet by mouth daily. 05/08/14 Yesica Flowers DO Allergies Allergen Reactions Vitamin B12 Rash History [...] Lives alone x 1 wk, moved from [facility], , 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 2 falls in the last 6 months. Family History Problem Relation Age of Onset Heart disease Father Heart disease Sister Diabetes type II Sister Heart Problems Brother ROS Review of Systems Constitutional: Negative for: fever, chills, fatigue, sweats weight loss Eyes: Negative for: decreased vision or irritated eyes Ears: Positive for: ears popping, no pain per se Nose: Negative for: nosebleed Throat: Negative for: mouth sores Cardiovascular/Respiratory: Negative for: cough Positive for: chest tightness and shortness of breath Gastrointestinal: Negative for: abdominal pain, vomiting, diarrhea, black or bloody stools Positive for: nausea Genitourinary: Negative for: dysuria, hematuria, urinary problems Musculoskeletal: Negative for: myalgias and arthralgias Skin: Negative for: laceration or lesion Neuro and psych: Negative for: fainting, head injury, seizure, trouble walking Endocrine/Heme/Lymph: Negative for: swollen lymph nodes, easy bruising Physical Exam Physical Exam BP 156/81 | Pulse 68 | Temp(Src) 98.6 F (37 C) (Temporal) | Resp 18 | Wt 106.7 kg (235 lb 3.7 oz) | SpO2 96% Pulse Oximetry interpretation: Normal General: Alert, no active distress Eyes: Normal inspection, pupils equal and round, non-icteric ENT: Ears TMS unseen, has ext canals are full of cerumen bilaterally Nose normal Pharynx normal Neck: Normal inspection Supple No lymphadenopathy Cardiovascular: S1S2, no reproducible chest pain with palpation Respiratory: LCTA Abdomen: Soft, non-tender, non-distended No guarding or rebound Back: Normal inspection Skin: Color normal Warm and dry No rash Neuro: No motor deficit No sensory deficit Normal gait ED Course Medical Decision Making and Emergency Department Course ED Department Course Presents with chest tightness, ears popping but no pain and high blood pressure when he kylee cked it, feeling nervous that something bad is going to happen, he speaks in full sentences, no resp distress, recently living on his own for one week, diff dx AMI, HTN, anemia, electr olyt imbalance, will check labs ekg and cxr, he agrees. 2109 EKG NSR HR 64 no STEMI 2124 still feels nervous, like something is going to happen", also has urinary dysuria 2136 still has chest tightness, feels a little nausea and short of breath with clear lungs, BP is 158/93, will have staff give him one NTG SL and see if that helps, I've added on a ch est xray. I have discussed admission for his chest tightness and he is in agreement with anh dougherty. Will see how the NTG SL works and get his CXR. 2149 to xray. 2214 Returns from xray 230 stomach cramps 04/15 abd remains soft, BP 146/80, Chest tightness is 02/[address] Ochoa called back, case discussed, agrees on admission for chest pain r/o, pt remai ns resting comfortably, watching TV, drinking water. BP 145/78 | Pulse 78 | Temp(Src) 97.8 F (36.6 C) (Oral) | Resp 16 | Ht 1.676 m (5' 6") | Wt 106.7 kg SpO2 97% Records Reviewed Nursing notes. Labs & Radiology Results Laboratory Evaluation Results Procedure Component Value Ref Range Date/Time POC clinitek 10 [[id number]] (Abnormal) Collected: 07/13/142352 Order Status: Completed Updated: 07/13/142357 Color, UA YELLOW Clarity, UA CLEAR Glucose, UA NEGATIVE NEGATIVE mg/dL Bilirubin, UA NEGATIVE NEGATIVE Ketones, UA NEGATIVE NEGATIVE mg/dL Spec Grav, UA 1.015 1.001 - 1.035 Blood, UA NEGATIVE NEGATIVE pH, UA 6.0 4.6 - 8.0 Protein, UA 30 (A) NEGATIVE mg/dL Urobilinogen, UA 0.2 <1.1 mg/dL Nitrite, UA NEGATIVE NEGATIVE WBC, UA NEGATIVE NEGATIVE Cardiac Panel [[id number]] (Abnormal) Collected: 07/13/142025 Order Status: Completed Updated: 07/13/142100 WBC 9.79 3.80 - 11.00 K/uL RBC 5.13 4.20 - 5.70 M/uL HGB 13.0 (L) 13.2 - 17.0 g/dL HCT 40.1 39.0 - 50.0 % MCV 78.1 (L) 80.0 - 100.0 fl MCH 25.3 (L) 27.0 - 34.0 pg MCHC 32.4 32.0 - 35.5 g/dL RDW SD 47.3 37 - 53 fl PLT 286 150 - 400 K/uL MPV 7.5 fl DIFF TYPE AUTOMATED NEUTROPHILS 60.94 % LYMPHOCYTES 26.14 % MONOCYTES 9.76 % EOSINOPHILS 2.70 % BASOPHILS 0.46 % NEUTROPHILS ABS 5.97 1.90 - 7.40 K/uL LYMPHOCYTES ABS 2.56 1.00 - 3.90 K/uL MONOCYTES ABS 0.96 (H) 0.00 - 0.80 K/uL EOSINOPHILS ABS 0.26 0.00 - 0.50 K/uL BASOPHILS ABS 0.05 0.00 - 0.10 K/uL SODIUM 143 135 - 143 mmol/L POTASSIUM 3.4 (L) 3.5 - 4.9 mmol/L CHLORIDE 107 99 - 109 mmol/L CO2 26 23 - 32 mmol/L ANION GAP AGAP 14 5 - 20 mmol/L GLUCOSE 150 (H) 65 - 99 mg/dL BUN 17 8 - 25 mg/dL CREATININE 1.15 0.70 - 1.30 mg/dL BUN/CREAT 15 CALCIUM 9.1 8.5 - 10.5 mg/dL TOTAL PROTEIN 7.3 6.3 - 8.2 g/dL Albumin 3.4 (L) 3.6 - 5.0 g/dL GLOBULIN 3.8 1.3 - 4.9 g/dL A/G 0.9 (L) 1.0 - 2.4 TBIL 0.4 0.1 - 1.5 mg/dL ALK PHOS 86 35 - 115 U/L AST 19 10 - 45 U/L ALT 22 10 - 65 U/L EGFR >60 >60 mL/min/1.73m2 CPK 151 55 - 400 U/L INR 1.2 APTT 27 23 - 32 seconds MMB 2.4 0.5 - 3.6 ng/mL CK-MB Index 1.6 POC cardiac troponin [[id number]] Collected: 07/13/142032 Order Status: Completed Updated: 07/13/142047 POC CARDIAC TROPONIN 0.00 0.00 - 0.10 ng/mL Radiology and EKG Evaluation Imaging Results XR Chest PA and Lateral (Final result) Result time: 07/14/14 07:49:09 Final result by Rad Results In Richard (07/14/14 07:49:09) Impression: 1. No active disease. Narrative: HISTORY: Chest pain. COMPARISON: 05/16/12. TECHNIQUE: AP and lateral films of the chest. FINDINGS: Heart size upper normal, unchanged. I seen no infiltrates or effusions. Mild vertebral endp late spurring of the thoracic spine. 2109 EKG NSR HR 64 no STEMI Diagnosis & Disposition ED Diagnosis Final diagnosis Chest pain at rest Disposition: ED Disposition Admit/Observation Bed request special needs: None Diagnosis?: chest pain Ana Victoria PA-C 07/14/14 0982 Yesica Flowers DO 07/15/14 1834 onversion Transacti on, Provider Unknown - 07/13/2014 8:06 PM PDTFormatting of this note might be different fro m the original. ED Notes by John Philippe RN at 07/13/142005 Author: John Philippe RN Service: Emergency Department Author Type: Registered Nurse Filed: 07/13/142005 Date of Service: 07/13/142005 Status: Signed Railway Track Worker: John Philippe RN (Registered Nurse) Pt now states that he has palpitations and has h/o afib. Denies SOB John Philippe RN 07/13/142005 onver ivana Transaction, Provider Unknown - 07/13/2014 8:03 PM PDT ED Notes by John Philippe RN at 07/13/142002 Author: John Philippe RN Service: Emergency Department Author Type: Registered Nurse Filed: 07/13/142003 Date of Service: 07/13/142002 Status: Signed Railway Track Worker: John Philippe RN (Registered Nurse) Pt c/o ear popping sensation, elevated BP noted at triage, BP 144/90, and "shakes". He robert es fevers but relates he has had diaphoresis. He also relates that he has chest tightness th at began this afternoon, still present John Philippe RN 07/13/142003 onver ivana Transaction, Provider Unknown - 07/13/2014 8:35 AM PDT ED Notes by John Philippe RN at 07/13/14834 Author: John Philippe RN Service: Emergency Department Author Type: Registered Nurse Filed: 07/13/142039 Date of Service: 07/13/14834 Status: Signed Railway Track Worker: John Philippe RN (Registered Nurse) Dr. Flowers aware of pt and nurse initiated orders that have been put in by myself, she ap proves. John Philippe RN 07/13/142039 docume nted in this encounter Miscellaneous Notes Plan of Care - Conversion Transaction, Provider Unknown - 07/14/2014 3:26 AM PDT Plan of Care by Lynne Elizabeth RN at 07/14/14325 Author: Lynne Elizabeth RN Service: (none) Author Type: Registered Nurse Filed: 07/14/14325 Date of Service: 07/14/14325 Status: Signed Railway Track Worker: Lynne Elizabeth RN (Registered Nurse) Problem: Pain Goal: Patient s pain/discomfort is manageable Assess and monitor patient s pain using appropriate pain scale. Collaborate with interdis ciplinary team and initiate plan and interventions as ordered. Re-assess patient s pain le tracy approximately 1-2 hours after pain management intervention. Premedicate as needed. Outcome: Progressing Pt not c/o any pain at this time. Problem: Safety Goal: Patient will be injury free during hospitalization Assess and monitor vitals signs, neurological status including level of consciousness and o rientation. Assess patient s risk for falls and implement fall prevention plan of care and interventions per hospital policy. Ensure arm band on, uncluttered walking paths in room, adequate room lighting, call light a nd overbed table within reach, bed in low position, wheels locked, side rails up per policy, and non-skid footwear provided. Outcome: Progressing All safety equip at bedside, call light in reach , bed in lowest position. Problem: Daily Care Goal: Daily care needs are met Assess and monitor ability to perform self care and identify potential discharge needs. Outcome: Progressing Pt independent with ADLs. Problem: Psychosocial Needs Goal: Demonstrates ability to cope with hospitalization/illness Assess and monitor patients ability to cope with his/her illness. Outcome: Progressing Pt exhibits effective coping skills. Problem: Discharge Barriers Goal: Patient s discharge needs are met Collaborate with interdisciplinary team and initiate plans and interventions as needed. Outcome: Progressing No discharge barriers identified at this time. Comments: Lynne Elizabeth RN 07/14/2014 3:26 AM Genaro wilson in this encounter Plan of Treatment +--------+---------+ + + + | Date | Type | Specialty | Care Team | Description | +--------+---------+ + + + | 09/10/ | Office | Geriatric Medicine | Mireya Pack, | | | 2019 | Visit | | ASSET ADMINISTRATOR [address] | | | | | | [facility] [address] [place], | | | | | | [place] [address] | | | | | | [phone] | | | | | | | | +--------+---------+ + + + | 09/29/ | Office | Urology | Mireya Pack, | | | 2019 | Visit | | ASSET ADMINISTRATOR [address] | | | | | | [facility] [address] | | | | | | [place] [address] | | | | | | [phone] | | | | | | | | | | | | [place], | | | | | | [address] | | | | | | [place] [address] | | | | | | [phone] | | | | | | | | +--------+---------+ + + + documented as of this encounter Procedures + +--------+ + + + | Procedure Name | Priori | Date/Time | Associated Diagnosis | Comments | | | ty | | | | + +--------+ + + + | NM MYOCARDIAL | Routin | 07/14/2014 | | Results for this | | PERFUSION MULT SPECT | e | 12:44 PM | | procedure are in the | | | | PDT | | results section. | + +--------+ + + + | POC GLUCOSE | Routin | 07/14/2014 | | Results for this | | | e | 12:44 PM | | procedure are in the | | | | PDT | | results section. | + +--------+ + + + | TROPONIN I | Routin | 07/14/2014 | | Results for this | | | e | 8:08 AM | | procedure are in the | | | | PDT | | results section. | + +--------+ + + + | CK-MB | Routin | 07/14/2014 | | Results for this | | | e | 8:08 AM | | procedure are in the | | | | PDT | | results section. | + +--------+ + + + | CK TOTAL | Routin | 07/14/2014 | | Results for this | | | e | 8:08 AM | | procedure are in the | | | | PDT | | results section. | + +--------+ + + + | POC GLUCOSE | Routin | 07/14/2014 | | Results for this | | | e | 7:51 AM | | procedure are in the | | | | PDT | | results section. | + +--------+ + + + | ECG 12 LEAD | Routin | 07/14/2014 | | Results for this | | | e | 5:50 AM | | procedure are in the | | | | PDT | | results section. | + +--------+ + + + | POC GLUCOSE | Routin | 07/14/2014 | | Results for this | | | e | 5:23 AM | | procedure are in the | | | | PDT | | results section. | + +--------+ + + + | EXTERNAL LAB: CBC | Routin | 07/14/2014 | | Results for this | | | e | 4:21 AM | | procedure are in the | | | | PDT | | results section. | + +--------+ + + + | LIPID PANEL | Routin | 07/14/2014 | | Results for this | | | e | 4:21 AM | | procedure are in the | | | | PDT | | results section. | + +--------+ + + + | TROPONIN I | Routin | 07/14/2014 | | Results for this | | | e | 4:21 AM | | procedure are in the | | | | PDT | | results section. | + +--------+ + + + | CK-MB | Routin | 07/14/2014 | | Results for this | | | e | 4:21 AM | | procedure are in the | | | | PDT | | results section. | + +--------+ + + + | PROTIME INR | Routin | 07/14/2014 | | Results for this | | | e | 4:21 AM | | procedure are in the | | | | PDT | | results section. | + +--------+ + + + | D-DIMER | Routin | 07/14/2014 | | Results for this | | | e | 4:21 AM | | procedure are in the | | | | PDT | | results section. | + +--------+ + + + | PHOSPHORUS | Routin | 07/14/2014 | | Results for this | | | e | 4:21 AM | | procedure are in the | | | | PDT | | results section. | + +--------+ + + + | MAGNESIUM | Routin | 07/14/2014 | | Results for this | | | e | 4:21 AM | | procedure are in the | | | | PDT | | results section. | + +--------+ + + + | CK TOTAL | Routin | 07/14/2014 | | Results for this | | | e | 4:21 AM | | procedure are in the | | | | PDT | | results section. | + +--------+ + + + | COMPREHENSIVE | Routin | 07/14/2014 | | Results for this | | METABOLIC PANEL | e | 4:21 AM | | procedure are in the | | | | PDT | | results section. | + +--------+ + + + | POC GLUCOSE | Routin | 07/13/2014 | | Results for this | | | e | 11:34 PM | | procedure are in the | | | | PDT | | results section. | + +--------+ + + + | XR CHEST 2 VIEWS | Routin | 07/13/2014 | | Results for this | | | e | 10:06 PM | | procedure are in the | | | | PDT | | results section. | + +--------+ + + + | HISTORICAL LAB PANEL | Routin | 07/13/2014 | | Results for this | | RESULT | e | 8:26 PM | | procedure are in the | | | | PDT | | results section. | + +--------+ + + + | ECG 12 LEAD | Routin | 07/13/2014 | | Results for this | | | e | 8:09 PM | | procedure are in the | | | | PDT | | results section. | + +--------+ + + + documented in this encounter Results NM Myocardial Perfusion Mult SPECT (07/14/2014 12:44 PM PDT) + + | Specimen | + + | | + + + + + | Impressions | Performed At | + + + | 1. Normal myocardial perfusion study. 2. No evidence of | | | pharmacologic stress induced ischemia or infarct. 3. Left | | | ventricular ejection fraction is calculated at 60%. Electronically | | | signed by Kishan Ji MD on 07/14/2014 1:25 PM | | + + + + + + | Narrative | Performed At | + + + | [facility] 1955 [place] MYOCARDIAL PERFUSION SPECT - STRESS | | | AND REST 07/14/2014 12:44 PM INDICATION: Chest pain COMPARISON: | | | 04/19/13 TECHNIQUE: A same day, rest and stress protocol was | | | performed. For the resting portion of the study the patient was | | | injected intravenously with 11 mCi of technetium 99m labeled Myoview. | | | Gated SPECT imaging was performed in the supine position. The | | | patient was then pharmacologically stressed with 0.4 mg of regadenoson | | | intravenously according to protocol. Resting heart rate vasiliy from | | | 65 beats/min to 99 beats/min which was 61% of the maximum | | | age-predicted heart rate. At the point of maximum stress, the | | | patient received 42.3 mCi of technetium 99m labeled Myoview | | | intravenously. Gated SPECT images were acquired in the supine | | | position. FINDINGS: No fixed or reversible perfusion defects are | | | present. There is no elevation of the transient ischemic dilatation | | | ratio. Normal wall motion and thickening is present. The following | | | functional data was obtained: End-diastolic volume: 137 mL | | | End-systolic volume: 55 mL Ejection fraction: 60% | | + + + + + | Procedure Note | + + | Joaquin Ramos - 09/20/2018 10:29 PM [facility]1955[place] MYOCARDIAL | | PERFUSION SPECT - STRESS AND REST07/14/2014 12:44 PM INDICATION: Chest pain COMPARISON: | | 04/19/13 TECHNIQUE:A same day, rest and stress protocol was performed. For the resting | | portion of the study the patient was injected intravenously with 11 mCi of technetium | | 99m labeled Myoview. Gated SPECT imaging was performed in the supine position. The | | patient was then pharmacologically stressed with 0.4 mg of regadenoson intravenously | | according to protocol. Resting heart rate vasiliy from 65 beats/min to 99 beats/min which | | was 61% of the maximum age-predicted heart rate. At the point of maximum stress, the | | patient received 42.3 mCi of technetium 99m labeled Myoview intravenously. Gated SPECT | | images were acquired in the supine position. FINDINGS: No fixed or reversible perfusion | | defects are present. There is no elevation of the transient ischemic dilatation ratio. | | Normal wall motion and thickening is present. The following functional data was | | obtained:End-diastolic volume: 137 mLEnd-systolic volume: 55 mLEjection fraction: 60% | | IMPRESSION: 1. Normal myocardial perfusion study.2. No evidence of pharmacologic | | stress induced ischemia or infarct.3. Left ventricular ejection fraction is calculated | | at 60%. | | | |The following functional data was obtained: | |End-diastolic volume: 137 mL | |End-systolic volume: 55 mL | |Ejection fraction: 60% | | | |IMPRESSION: | |1. Normal myocardial perfusion study. | |2. No evidence of pharmacologic stress induced ischemia or infarct. | |3. Left ventricular ejection fraction is calculated at 60%. | | | | | + + POC Glucose (07/14/2014 12:44 PM PDT) + + + + + + | Component | Value | Ref Range | Performed | Pathologist | | | | | At | Signature | + + + + + + | Glucose, | 129 (H)Comment: Testing | 65 - 99 mg/dL | EXTERNAL | | | Fingerstick | performed at [facility];[address] | | LAB | | | | [address];[place] | | | | | | [address] | | | | + + + + + + + + | Specimen | + + | | + + + +---------+ + + | Performing | Address | City/State/Zipcode | Phone Number | | Organization | | | | + +---------+ + + | EXTERNAL LAB | | | | + +---------+ + + CK-MB (07/14/2014 8:08 AM PDT) + + + + + -+ | Component | Value | Ref Range | Performed | Pathologist | | | | | At | Signature | + + + + + -+ | CK-MB | 1.6Comment: Testing | 0.5 - 3.6 ng/mL | EXTERNAL | | | | performed at [facility];[address] | | LAB | | | | [address];[place], [place] | | | | | | [address] | | | | + + + + + -+ | CK-MB Index | 1.5Comment: CK INDEX | | EXTERNAL | | [...] | + +---------+ + + Troponin I (07/14/2014 8:08 AM PDT) + + + + + + | Component | Value | Ref Range | Performed | Pathologist | | | | | At | Signature | + + + + + + | Troponin I, | <0.020Comment: 0.00 to | 0.00 - 0.10 | EXTERNAL | | | Qual | 0.10 CONSISTENT WITH | ng/mL | LAB | | | | NORMAL POPULATION0.11 | | | | | | to 0.60 CONSISTENT | | | | | | WITH INCREASED RISK FOR | | | | | | ADVERSE OUTCOMES> 0.60 | | | | | | CONSISTENT | | | | | | WITH WHO CRITERIA FOR | | | | | | ACUTE ND Testing | | | | | | performed at [facility];[address] | | | | | | [facility];[place], [place] | | | | | | [address] | | | | + + + + + + + + | Specimen | + + | Blood specimen | | (specimen) | + + + +---------+ + + | Performing | Address | City/State/Zipcode | Phone Number | | Organization | | | | + +---------+ + + | EXTERNAL LAB | | | | + +---------+ + + CK Total (07/14/2014 8:08 AM PDT) + + + + + + | Component | Value | Ref Range | Performed | Pathologist | | | | | At | Signature | + + + + + + | CK, Total | 107Comment: Testing | 55 - 400 U/L | EXTERNAL | | | | performed at [facility];[address] | | LAB | | | | [address];[place] | | | | | | [address] | | | | + + + + + + + + | Specimen | + + | Blood specimen | | (specimen) | + + + +---------+ + + | Performing | Address | City/State/Zipcode | Phone Number | | Organization | | | | + +---------+ + + | EXTERNAL LAB | | | | + +---------+ + + POC Glucose (07/14/2014 7:51 AM PDT) + + + + + + | Component | Value | Ref Range | Performed | Pathologist | | | | | At | Signature | + + + + + + | Glucose, | 128 (H)Comment: Testing | 65 - 99 mg/dL | EXTERNAL | | | Fingerstick | performed at [facility];[address] | | LAB | | | | [address];[place] | | | | | | [address] | | | | + + + + + + + + | Specimen | + + | | + + + +---------+ + + | Performing | Address | City/State/Zipcode | Phone Number | | Organization | | | | + +---------+ + + | EXTERNAL LAB | | | | + +---------+ + + ECG 12 lead (07/14/2014 5:50 AM PDT) + + + + + + | Component | Value | Ref Range | Performed | Pathologist | | | | | At | Signature | + + + + + + | DIAGNOSIS: | Normal sinus | | EXTERNAL | | | | rhythmNormal ECGWhen | | LAB | | | | compared with ECG of | | | | | | 13-JUL-2014 20:09,No | | | | | | significant change was | | | | | | foundConfirmed by | | | | | | MICHAEL LAWSON ([id number]) on | | | | | | 07/14/2014 11:37:19 AM | | | | + + + + + + + + | Specimen | + + | | + + + + + | Narrative | Performed At | + + + | Historically converted procedure from [facility] | EXTERNAL LAB | + + + + +---------+ + + | Performing | Address | City/State/Zipcode | Phone Number | | Organization | | | | + +---------+ + + | EXTERNAL LAB | | | | + +---------+ + + POC Glucose (07/14/2014 5:23 AM PDT) + + + + + + | Component | Value | Ref Range | Performed | Pathologist | | | | | At | Signature | + + + + + + | Glucose, | 124 (H)Comment: Testing | 65 - 99 mg/dL | EXTERNAL | | | Fingerstick | performed at [facility];[address] | | LAB | | | | [address];[place], [place] | | | | | | [address] | | | | + + + + + + + + | Specimen | + + | | + + + +---------+ + + | Performing | Address | City/State/Zipcode | Phone Number | | Organization | | | | + +---------+ + + | EXTERNAL LAB | | | | + +---------+ + + CK-MB (07/14/2014 4:21 AM PDT) + + + + + -+ | Component | Value | Ref Range | Performed | Pathologist | | | | | At | Signature | + + + + + -+ | CK-MB | 1.7Comment: Testing | 0.5 - 3.6 ng/mL | EXTERNAL | | | | performed at [facility];[address] | | LAB | | | | [address];[place] | | | | | | [address] | | | | + + + + + -+ | CK-MB Index | 1.4Comment: CK INDEX | | EXTERNAL | | [...] | + +---------+ + + Troponin I (07/14/2014 4:21 AM PDT) + + + + + + | Component | Value | Ref Range | Performed | Pathologist | | | | | At | Signature | + + + + + + | Troponin I, | <0.020Comment: 0.00 to | 0.00 - 0.10 | EXTERNAL | | | Qual | 0.10 CONSISTENT WITH | ng/mL | LAB | | | | NORMAL POPULATION0.11 | | | | | | to 0.60 CONSISTENT | | | | | | WITH INCREASED RISK FOR | | | | | | ADVERSE OUTCOMES> 0.60 | | | | | | CONSISTENT | | | | | | WITH WHO CRITERIA FOR | | | | | | ACUTE ND Testing | | | | | | performed at [facility];[address] | | | | | | [address];[place], [place] | | | | | | [address] | | | | + + + + + + + + | Specimen | + + | Blood specimen | | (specimen) | + + + +---------+ + + | Performing | Address | City/State/Zipcode | Phone Number | | Organization | | | | + +---------+ + + | EXTERNAL LAB | | | | + +---------+ + + Protime INR (07/14/2014 4:21 AM PDT) + + + + + + | Component | Value | Ref Range | Performed | Pathologist | | | | | At | Signature | + + + + + + | INR | 1.1Comment: REFERENCE | | EXTERNAL | | | [...] | | | | | performed at [facility];[address] | | | | | | [facility];[place], [place] | | | | | | [address] | | | | + + + + + + + + | Specimen | + + | Blood specimen | | (specimen) | + + + +---------+ + + | Performing | Address | City/State/Zipcode | Phone Number | | Organization | | | | + +---------+ + + | EXTERNAL LAB | | | | + +---------+ + + D-Dimer (07/14/2014 4:21 AM PDT) + + + + + + | Component | Value | Ref Range | Performed | Pathologist | | | | | At | Signature | + + + + + + | D-DIMER, | 0.22Comment: D Dimer | 0.19 - 0.50 | EXTERNAL | | | MANUAL | results less than 0.50 | mg/L FEU | LAB | | | | mg/L FEU may rule out | | | | | | DVT and PE. However, | | | | | | all laboratory results | | | | | | should be interpreted in | | | | | | the context of all | | | | | | available clinical, | | | | | | radiologic and | | | | | | laboratory | | | | | | information.Testing | | | | | | performed at [facility] | | | | | | [facility];[place], [place] | | | | | | [address] | | | | + + + + + + + + | Specimen | + + | | + + + +---------+ + + | Performing | Address | City/State/Zipcode | Phone Number | | Organization | | | | + +---------+ + + | EXTERNAL LAB | | | | + +---------+ + + External Lab: EVE (07/14/2014 4:21 AM PDT) + + + + + + | Component | Value | Ref Range | Performed | Pathologist | | | | | At | Signature | + + + + + + | WBC | 9.38Comment: Testing | 3.80 - 11.00 | EXTERNAL | | | | performed at [facility], [address] | K/uL | LAB | | | | [address], | | | | | | [place] [address] | | | | + + + + + + | Non- | 4.89Comment: Testing | 4.20 - 5.70 | EXTERNAL | | | Red Blood | performed at [facility], [address] | M/uL | LAB | | | Cells | [address], | | | | | Counted | [place] [address] | | | | + + + + + + | Hemoglobin | 12.1 (L)Comment: Testing | 13.2 - 17.0 | EXTERNAL | | | | performed at [facility], [address] | g/dL | LAB | | | | [address], | | | | | | [place] [address] | | | | + + + + + + | Hematocrit, | 38.2 (L)Comment: Testing | 39.0 - 50.0 % | EXTERNAL | | | POC | performed at [facility], [address] | | LAB | | | | [address], | | | | | | [place] [address] | | | | + + + + + + | MCV | 78.0 (L)Comment: Testing | 80.0 - 100.0 fl | EXTERNAL | | | | performed at [facility], [address] | | LAB | | | | [address], | | | | | | [place] [address] | | | | + + + + + + | MCH | 24.7 (L)Comment: Testing | 27.0 - 34.0 pg | EXTERNAL | | | | performed at [facility], [address] | | LAB | | | | [address], | | | | | | [place] [address] | | | | + + + + + + | MCHC | 31.7 (L)Comment: Testing | 32.0 - 35.5 | EXTERNAL | | | | performed at [facility], [address] | g/dL | LAB | | | | [address], | | | | | | [place] [address] | | | | + + + + + + | RDW-CV | 46.8Comment: Testing | 37 - 53 fl | EXTERNAL | | | | performed at [facility], [address] | | LAB | | | | [address], | | | | | | [place] [address] | | | | + + + + + + | Platelet | 260Comment: Testing | 150 - 400 K/uL | EXTERNAL | | | Count | performed at [facility], [address] | | LAB | | | Plasma | [address], | | | | | | [place] [address] | | | | + + + + + + | MPV | 7.7Comment: Testing | fl | EXTERNAL | | | | performed at [facility], [address] | | LAB | | | | [address], | | | | | | [place] [address] | | | | + + + + + + | Differentia | AUTOMATEDComment: | | EXTERNAL | | | l Type | Testing performed at | | LAB | | | | [facility], [address] | | | | | | [place] | | | | | | [address] | | | | + + + + + + | % Segmented | 53.40Comment: Testing | % | EXTERNAL | | | | performed at [facility], [address] | | LAB | | | Neutrophils | [address], | | | | | | [place] [address] | | | | + + + + + + | % | 30.34Comment: Testing | % | EXTERNAL | | | Lymphocytes | performed at [facility], [address] | | LAB | | | | [address], | | | | | | [place] [address] | | | | + + + + + + | % Monocytes | 11.30Comment: Testing | % | EXTERNAL | | | | performed at [facility], [address] | | LAB | | | | [address], | | | | | | [place] [address] | | | | + + + + + + | % | 4.20Comment: Testing | % | EXTERNAL | | | Eosinophils | performed at [facility], [address] | | LAB | | | | [address], | | | | | | [place] [address] | | | | + + + + + + | % Basophils | 0.76Comment: Testing | % | EXTERNAL | | | | performed at [facility], [address] | | LAB | | | | [address], | | | | | | [place] [address] | | | | + + + + + + | Absolute | 5.01Comment: Testing | 1.90 - 7.40 | EXTERNAL | | | Segmented | performed at [facility], [address] | K/uL | LAB | | | Neutrophils | [address], | | | | | | [place] [address] | | | | + + + + + + | Absolute | 2.85Comment: Testing | 1.00 - 3.90 | EXTERNAL | | | Lymphocytes | performed at [facility], [address] | K/uL | LAB | | | | [address], | | | | | | [place] [address] | | | | + + + + + + | Absolute | 1.06 (H)Comment: Testing | 0.00 - 0.80 | EXTERNAL | | | Monocytes | performed at [facility], [address] | K/uL | LAB | | | | [address], | | | | | | [place] [address] | | | | + + + + + + | Absolute | 0.39Comment: Testing | 0.00 - 0.50 | EXTERNAL | | | Eosinophils | performed at [facility], [address] | K/uL | LAB | | | [address], | | | | | | [place] [address] | | | | + + + + + + | Absolute | 0.07Comment: Testing | 0.00 - 0.10 | EXTERNAL | | | Basophils | performed at [facility], [address] | K/uL | LAB | | | | [address], | | | | | | [place] [address] | | | | + + + + + + | RBC | 2+Comment: HYPONORMAL | | EXTERNAL | | | Morphology | PLT MORPHTesting | | LAB | | | | performed at [facility], [address] | | | | | | [address], | | | | | | [place] [address] | | | | | | | [...] | | | + +---------+ + + Phosphorus (07/14/2014 4:21 AM PDT) + + + + + + | Component | Value | Ref Range | Performed | Pathologist | | | | | At | Signature | + + + + + + | PHOSPHORUS | 4.6Comment: Testing | 2.3 - 4.8 mg/dL | EXTERNAL | | | | performed at [facility], [address] | | LAB | | | | [address], | | | | | | [place] [address] | | | | + + + + + + + + | Specimen | + + | Blood specimen | | (specimen) | + + + +---------+ + + | Performing | Address | City/State/Zipcode | Phone Number | | Organization | | | | + +---------+ + + | EXTERNAL LAB | | | | + +---------+ + + Magnesium (07/14/2014 4:21 AM PDT) + + + + + + | Component | Value | Ref Range | Performed | Pathologist | | | | | At | Signature | + + + + + + | Magnesium | 1.9Comment: Testing | 1.7 - 2.4 mg/dL | EXTERNAL | | | | performed at [facility], [address] | | LAB | | | | [address], | | | | | | [place] [address] | | | | + + + + + + + + | Specimen | + + | Blood specimen | | (specimen) | + + + +---------+ + + | Performing | Address | City/State/Zipcode | Phone Number | | Organization | | | | + +---------+ + + | EXTERNAL LAB | | | | + +---------+ + + CK Total (07/14/2014 4:21 AM PDT) + + + + + + | Component | Value | Ref Range | Performed | Pathologist | | | | | At | Signature | + + + + + + | CK, Total | 119Comment: Testing | 55 - 400 U/L | EXTERNAL | | | | performed at [facility];[address] | | LAB | | | | [address];[place] | | | | | | [address] | | | | + + + + + + + + | Specimen | + + | Blood specimen | | (specimen) | + + + +---------+ + + | Performing | Address | City/State/Zipcode | Phone Number | | Organization | | | | + +---------+ + + | EXTERNAL LAB | | | | + +---------+ + + Lipid Panel (07/14/2014 4:21 AM PDT) + + + + + + | Component | Value | Ref Range | Performed | Pathologist | | | | | At | Signature | + + + + + + | Cholesterol | 136Comment: Testing | mg/dL | EXTERNAL | | | | performed at [facility], [address] | | LAB | | | | [address], | | | | | | [place] [address] | | | | + + + + + + | Triglycerid | 181 (H)Comment: Testing | mg/dL | EXTERNAL | | | es | performed at [facility], [address] | | LAB | | | | [address], | | | | | | [place] [address] | | | | + + + + + + | HDL | 30 (L)Comment: Testing | mg/dL | EXTERNAL | | | | performed at [facility], [address] | | LAB | | | | [address], | | | | | | [place] [address] | | | | + + + + + + | LDL, | 70Comment: Testing | mg/dL | EXTERNAL | | | Calculated | performed at [facility], [address] | | LAB | | | | [address], | | | | | | [place] [address] | | | | + + + [...] + +---------+ + + Comprehensive Metabolic Panel (07/14/2014 4:21 AM PDT) + + + + + + | Component | Value | Ref Range | Performed | Pathologist | | | | | At | Signature | + + + + + + | Na | 139Comment: Testing | 135 - 143 | EXTERNAL | | | | performed at [facility], [address] | mmol/L | LAB | | | | [address], | | | | | | [place] [address] | | | | + + + + + + | K | 3.7Comment: Testing | 3.5 - 4.9 | EXTERNAL | | | | performed at [facility], [address] | mmol/L | LAB | | | | [address], | | | | | | [place] [address] | | | | + + + + + + | Cl | 106Comment: Testing | 99 - 109 mmol/L | EXTERNAL | | | | performed at [facility], [address] | | LAB | | | | [address], | | | | | | [place] [address] | | | | + + + + + + | CO2 | 31Comment: Testing | 23 - 32 mmol/L | EXTERNAL | | | | performed at [facility], [address] | | LAB | | | | [address], | | | | | | [place] [address] | | | | + + + + + + | Anion Gap | 6Comment: Testing | 5 - 20 mmol/L | EXTERNAL | | | | performed at [facility], [address] | | LAB | | | | [address], | | | | | | [place] [address] | | | | + + + + + + | Glucose, | 133 (H)Comment: Testing | 65 - 99 mg/dL | EXTERNAL | | | Fasting | performed at [facility], [address] | | LAB | | | | [address], | | | | | | [place] [address] | | | | + + + + + + | BUN | 19Comment: Testing | 8 - 25 mg/dL | EXTERNAL | | | | performed at [facility], [address] | | LAB | | | | [address], | | | | | | [place] [address] | | | | + + + + + + | Creatinine | 1.02Comment: Testing | 0.70 - 1.30 | EXTERNAL | | | | performed at [facility], [address] | mg/dL | LAB | | | | [address], | | | | | | [place] [address] | | | | + + + + + + | BUN/Creatin | 19Comment: Testing | | EXTERNAL | | | ine Ratio | performed at [facility], [address] | | LAB | | | | [address], | | | | | | [place] [address] | | | | + + + + + + | Calcium | 9.1Comment: Testing | 8.5 - 10.5 | EXTERNAL | | | | performed at [facility], [address] | mg/dL | LAB | | | | [address], | | | | | | [place] [address] | | | | + + + + + + | Protein, | 6.4Comment: Testing | 6.3 - 8.2 g/dL | EXTERNAL | | | Total | performed at [facility], [address] | | LAB | | | | [address], | | | | | | [place] [address] | | | | + + + + + + | Albumin | 3.5 (L)Comment: Testing | 3.6 - 5.0 g/dL | EXTERNAL | | | | performed at [facility], [address] | | LAB | | | | [address], | | | | | | [place] [address] | | | | + + + + + + | Globulin | 2.9Comment: Testing | 1.3 - 4.9 g/dL | EXTERNAL | | | | performed at [facility], [address] | | LAB | | | | [address], | | | | | | [place] [address] | | | | + + + + + + | A/G Ratio | 1.2Comment: Testing | 1.0 - 2.4 | EXTERNAL | | | | performed at [facility], [address] | | LAB | | | | [address], | | | | | | [place] [address] | | | | + + + + + + | Bilirubin | 0.3Comment: Testing | 0.1 - 1.5 mg/dL | EXTERNAL | | | Total | performed at [facility], [address] | | LAB | | | | [address], | | | | | | [place] [address] | | | | + + + + + + | ALP, | 61Comment: Testing | 35 - 115 U/L | EXTERNAL | | | External | performed at [facility], [address] | | LAB | | | | [address], | | | | | | [place] [address] | | | | + + + + + + | AST | 18Comment: Testing | 10 - 45 U/L | EXTERNAL | | | | performed at [facility], [address] | | LAB | | | | [address], | | | | | | [place] [address] | | | | + + + + + + | ALT | 13Comment: Testing | 10 - 65 U/L | EXTERNAL | | | | performed at [facility], [address] | | LAB | | | | [facility], | | | | | | [place] [address] | | | | + + + [...] | | | | | | at [facility], [address] | | | | | | [facility], | | | | | | [place] [address] | | | | + + + + + + + + | Specimen | + + | | + + + +---------+ + + | Performing | Address | City/State/Zipcode | Phone Number | | Organization | | | | + +---------+ + + | EXTERNAL LAB | | | | + +---------+ + + POC Glucose (07/13/2014 11:34 PM PDT) + + + + + + | Component | Value | Ref Range | Performed | Pathologist | | | | | At | Signature | + + + + + + | Glucose, | 121 (H)Comment: Testing | 65 - 99 mg/dL | EXTERNAL | | | Fingerstick | performed at [facility];[address] | | LAB | | | | [address];[place] | | | | | | [address] | | | | + + + + + + + + | Specimen | + + | | + + + +---------+ + + | Performing | Address | City/State/Zipcode | Phone Number | | Organization | | | | + +---------+ + + | EXTERNAL LAB | | | | + +---------+ + + XR Chest 2 Vws (07/13/2014 10:06 PM PDT) + + | Specimen | + + | | + + + + + | Impressions | Performed At | + + + | 1. No active disease. | | + + + + + + | Narrative | Performed At | + + + | HISTORY: Chest pain. COMPARISON: 05/16/12. TECHNIQUE: AP | | | and lateral films of the chest. FINDINGS: Heart size upper | | | normal, unchanged. I seen no infiltrates or effusions. Mild vertebral | | | endplate spurring of the thoracic spine. | | + + + + + | Procedure Note | + + | Richard, Rad Conversion - 09/20/2018 10:29 PM PDT HISTORY:Chest pain. COMPARISON:05/16/12. | | TECHNIQUE:AP and lateral films of the chest. FINDINGS:Heart size upper normal, | | unchanged. I seen no infiltrates or effusions. Mild vertebral endplate spurring of the | | thoracic spine. IMPRESSION: 1. No active disease. | | | |TECHNIQUE: | |AP and lateral films of the chest. | | | |FINDINGS: | |Heart size upper normal, unchanged. I seen no infiltrates or effusions. Mild vertebral endp late spurring of the thoracic spine. | | | |IMPRESSION: | |1. No active disease. | | | | | + + HISTORICAL LAB PANEL RESULT (07/13/2014 8:26 PM PDT) + + + + + -+ | Component | Value | Ref Range | Performed | Pathologist | | | | | At | Signature | + + + + + -+ | WBC | 9.79Comment: Testing | 3.80 - 11.00 | EXTERNAL | | | | performed at [facility];[address] | K[address] | LAB | | | | [address];[place] | | | | | | [address] | | | | + + + + + -+ | Non- | 5.13Comment: Testing | 4.20 - 5.70 | EXTERNAL | | | Red Blood | performed at [facility];[address] | M/uL | LAB | | | Cells | [address];[place] | | | | | Counted | [address] | | | | + + + + + -+ | Hemoglobin | 13.0 (L)Comment: Testing | 13.2 - 17.0 | EXTERNAL | | | | performed at [facility];[address] | g/dL | LAB | | | | [address];[place] | | | | | | [address] | | | | + + + + + -+ | Hematocrit, | 40.1Comment: Testing | 39.0 - 50.0 % | EXTERNAL | | | POC | performed at [facility];[address] | | LAB | | | | [address];[place] | | | | | | [address] | | | | + + + + + -+ | MCV | 78.1 (L)Comment: Testing | 80.0 - 100.0 fl | EXTERNAL | | | | performed at [facility];[address] | | LAB | | | | [address];[place] | | | | | | [address] | | | | + + + + + -+ | MCH | 25.3 (L)Comment: Testing | 27.0 - 34.0 pg | EXTERNAL | | | | performed at [facility];[address] | | LAB | | | | [address];[place] | | | | | | [address] | | | | + + + + + -+ | MCHC | 32.4Comment: Testing | 32.0 - 35.5 | EXTERNAL | | | | performed at [facility];[address] | g/dL | LAB | | | | [address];[place] | | | | | | [address] | | | | + + + + + -+ | RDW-CV | 47.3Comment: Testing | 37 - 53 fl | EXTERNAL | | | | performed at [facility];[address] | | LAB | | | | [address];[place] | | | | | | [address] | | | | + + + + + -+ | Platelet | 286Comment: Testing | 150 - 400 K/uL | EXTERNAL | | | Count | performed at [facility];[address] | | LAB | | | Plasma | [address];[place] | | | | | | [address] | | | | + + + + + -+ | MPV | 7.5Comment: Testing | fl | EXTERNAL | | | | performed at [facility];[address] | | LAB | | | | [address];[place] | | | | | | [address] | | | | + + + + + -+ | Differentia | AUTOMATEDComment: | | EXTERNAL | | | l Type | Testing performed at | | LAB | | | | [facility];[address];[place] [address] | | | | + + + + + -+ | % Segmented | 60.94Comment: Testing | % | EXTERNAL | | | | performed at [facility];[address] | | LAB | | | Neutrophils | [address];[place] | | | | | | [address] | | | | + + + + + -+ | % | 26.14Comment: Testing | % | EXTERNAL | | | Lymphocytes | performed at [facility];[address] | | LAB | | | | [address];[place] | | | | | | [address] | | | | + + + + + -+ | % Monocytes | 9.76Comment: Testing | % | EXTERNAL | | | | performed at [facility];[address] | | LAB | | | | [address];[place] | | | | | | [address] | | | | + + + + + -+ | % | 2.70Comment: Testing | % | EXTERNAL | | | Eosinophils | performed at [facility];[address] | | LAB | | | | [address];[place] | | | | | | [address] | | | | + + + + + -+ | % Basophils | 0.46Comment: Testing | % | EXTERNAL | | | | performed at [facility];[address] | | LAB | | | | [address];[place] | | | | | | [address] | | | | + + + + + -+ | Absolute | 5.97Comment: Testing | 1.90 - 7.40 | EXTERNAL | | | Segmented | performed at [facility];[address] | K/uL | LAB | | | Neutrophils | [address];[place] | | | | | | [address] | | | | + + + + + -+ | Absolute | 2.56Comment: Testing | 1.00 - 3.90 | EXTERNAL | | | Lymphocytes | performed at [facility];[address] | K/uL | LAB | | | | [address];[place] | | | | | | [address] | | | | + + + + + -+ | Absolute | 0.96 (H)Comment: Testing | 0.00 - 0.80 | EXTERNAL | | | Monocytes | performed at [facility];[address] | K/uL | LAB | | | | [address];[place] | | | | | | [address] | | | | + + + + + -+ | Absolute | 0.26Comment: Testing | 0.00 - 0.50 | EXTERNAL | | | Eosinophils | performed at [facility];[address] | K/uL | LAB | | | | [address];[place] | | | | | | [address] | | | | + + + + + -+ | Absolute | 0.05Comment: Testing | 0.00 - 0.10 | EXTERNAL | | | Basophils | performed at [facility];[address] | K/uL | LAB | | | | [address];[place] | | | | | | [address] | | | | + + + + + -+ | Na | 143Comment: Testing | 135 - 143 | EXTERNAL | | | | performed at [facility];[address] | mmol/L | LAB | | | | [address];[place] | | | | | | [address] | | | | + + + + + -+ | K | 3.4 (L)Comment: Testing | 3.5 - 4.9 | EXTERNAL | | | | performed at [facility];[address] | mmol/L | LAB | | | | [address];[place] | | | | | | [address] | | | | + + + + + -+ | Cl | 107Comment: Testing | 99 - 109 mmol/L | EXTERNAL | | | | performed at [facility];[address] | | LAB | | | | [address];[place] | | | | | | [address] | | | | + + + + + -+ | CO2 | 26Comment: Testing | 23 - 32 mmol/L | EXTERNAL | | | | performed at [facility];[address] | | LAB | | | | [address];[place] | | | | | | [address] | | | | + + + + + -+ | Anion Gap | 14Comment: Testing | 5 - 20 mmol/L | EXTERNAL | | | | performed at [facility];[address] | | LAB | | | | [address];[place] | | | | | | [address] | | | | + + + + + -+ | Glucose, | 150 (H)Comment: Testing | 65 - 99 mg/dL | EXTERNAL | | | Fasting | performed at [facility];[address] | | LAB | | | | [address];[place] | | | | | | [address] | | | | + + + + + -+ | BUN | 17Comment: Testing | 8 - 25 mg/dL | EXTERNAL | | | | performed at [facility];[address] | | LAB | | | | [address];[place] | | | | | | [address] | | | | + + + + + -+ | Creatinine | 1.15Comment: Testing | 0.70 - 1.30 | EXTERNAL | | | | performed at [facility];[address] | mg/dL | LAB | | | | [address];[place] | | | | | | [address] | | | | + + + + + -+ | BUN/Creatin | 15Comment: Testing | | EXTERNAL | | | ine Ratio | performed at [facility];[address] | | LAB | | | | [address];[place] | | | | | | [address] | | | | + + + + + -+ | Calcium | 9.1Comment: Testing | 8.5 - 10.5 | EXTERNAL | | | | performed at [facility];[address] | mg/dL | LAB | | | | [address];[place] | | | | | | [address] | | | | + + + + + -+ | Protein, | 7.3Comment: Testing | 6.3 - 8.2 g/dL | EXTERNAL | | | Total | performed at [facility];[address] | | LAB | | | | [address];[place] | | | | | | [address] | | | | + + + + + -+ | Albumin | 3.4 (L)Comment: Testing | 3.6 - 5.0 g/dL | EXTERNAL | | | | performed at [facility];[address] | | LAB | | | | [address];[place] | | | | | | [address] | | | | + + + + + -+ | Globulin | 3.8Comment: Testing | 1.3 - 4.9 g/dL | EXTERNAL | | | | performed at [facility];[address] | | LAB | | | | [address];[place] | | | | | | [address] | | | | + + + + + -+ | A/G Ratio | 0.9 (L)Comment: Testing | 1.0 - 2.4 | EXTERNAL | | | | performed at [facility];[address] | | LAB | | | | [address];[place] | | | | | | [address] | | | | + + + + + -+ | Bilirubin | 0.4Comment: Testing | 0.1 - 1.5 mg/dL | EXTERNAL | | | Total | performed at [facility];[address] | | LAB | | | | [address];[place] | | | | | | [address] | | | | + + + + + -+ | ALP, | 86Comment: Testing | 35 - 115 U/L | EXTERNAL | | | External | performed at [facility];[address] | | LAB | | | | [address];[place] | | | | | | [address] | | | | + + + + + -+ | AST | 19Comment: Testing | 10 - 45 U/L | EXTERNAL | | | | performed at [facility];[address] | | LAB | | | | [address];[place] | | | | | | [address] | | | | + + + + + -+ | ALT | 22Comment: Testing | 10 - 65 U/L | EXTERNAL | | | | performed at [facility];[address] | | LAB | | | | [address];[place] | | | | | | [address] | | | | + + + [...] | | | | | | at [facility];[address] | | | | | | [address];[place] [address] | | | | + + + + + -+ | CK, Total | 151Comment: Testing | 55 - 400 U/L | EXTERNAL | | | | performed at [facility];[address] | | LAB | | | | [address];[place] | | | | | | [address] | | | | + + + + + -+ | INR | 1.2Comment: REFERENCE | | EXTERNAL | | | [...] | | | | | performed at [facility];[address] | | | | | | [address];[place] | | | | | | [address] | | | | + + + + + -+ | aPTT, | 27Comment: Testing | 23 - 32 seconds | EXTERNAL | | | Patient | performed at [facility];[address] | | LAB | | | | [address];[place] | | | | | | [address] | | | | + + + + + -+ | CK-MB | 2.4Comment: Testing | 0.5 - 3.6 ng/mL | EXTERNAL | | | | performed at [facility];[address] | | LAB | | | | [address];[place], [place] | | | | | | [address] | | | | + + + + + -+ | CK-MB Index | 1.6Comment: CK INDEX | | EXTERNAL | | [...] + +---------+ + + ECG 12 lead (07/13/2014 8:09 PM PDT) + + + + + + | Component | Value | Ref Range | Performed | Pathologist | | | | | At | Signature | + + + + + + | DIAGNOSIS: | Normal sinus | | EXTERNAL | | | | rhythmNormal ECGWhen | | LAB | | | | compared with ECG of | | | | | | 09-JUL-2014 | | | | | | 03:28,Nonspecific T wave | | | | | | abnormality no longer | | | | | | evident in Inferior | | | | | | leadsNonspecific T wave | | | | | | abnormality no longer | | | | | | evident in Anterolateral | | | | | | leadsThis [...] | | | | | ONLY, -COMPUTER ([id number]), | | | | | | international editorial producer Mel Burrell | | | | | | (18) on 07/14/2014 4:56:55 | | | | | | AM | | | | + + + + + + + + | Specimen | + + | | + + + + + | Narrative | Performed At | + + + | [facility] | EXTERNAL LAB | + + + + +---------+ + + | Performing | Address | City/State/Zipcode | Phone Number | | Organization | | | | + +---------+ + + | EXTERNAL LAB | | | | + +---------+ + + documented in this encounter Visit Diagnoses + + | Diagnosis | + + | Chest pain at rest Chest pain, unspecified | + + | Acute chest pain Chest pain, unspecified | + + | Chronic back pain Backache, unspecified | + + | COPD (chronic obstructive pulmonary disease) (HCC) Chronic airway obstruction, not | | elsewhere classified | + + | Hypoxia Hypoxemia | + + | penitentiary (current) use of 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 Long-term (current) use of 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 | + + | WARD (obstructive sleep apnea) Obstructive sleep apnea (adult) (pediatric) | + + | Paroxysmal A-fib (HCC) Atrial fibrillation | + + documented in this encounter
--- OUTSIDE RECORDS SUMMARY | ~2019-09-09 | XMS | Encounter Summary ---
Demographics + + + | Address | [address] | | | [place] [address] | + + + | Home Phone | | + + + | Preferred Language | Unknown | + + + | Marital Status | | + + + | Voodoo Affiliation | 1027 | + + + | Race | Unknown | + + + | Ethnic Group | Unknown | + + + Author + + + | Author | [facility] | | | and [place] | + + + | Organization | [facility] | | | and [place] | + + + | Address | Unknown | + + + | Phone | Unavailable | + + + Support + + + + + | Name | Relationship | Address | Phone | + + + + + | Sammi Kohler | ECON | [place] [address] | | + + + + + Care Team Providers + +------+ + | Care Inspector Semiconductor Wafer Name | Role | Phone | + +------+ + PCP | Unavailable | + +------+ + Encounter Details +--------+ + + + + | Date | Type | Department | Care Team | Description | +--------+ + + + + | 11/20/ | Emergency | [facility] | Ger Llamas, | Nayana armas, | | 2014 | | [facility] | MD [address] | bilateral | | | | EMERGENCY CENTER | [place] [address] | | | | | [address] | [phone] | | | | | [place], [place] | | | | | | [address] | | | | | | [phone] | | | +--------+ + + + [...] Progress Notes Conversion Transaction, Provider Unknown - 11/20/2013 12:48 PM PDTFormatting of this note m ight be different from the original. Case Management by QUINN White at 11/20/13 1248 Author: QUINN White Service: (none) Author Type: Graduate Student Filed: 11/20/13 1250 Date of Service: 11/20/13 1248 Status: Signed Gypsum Roofer: QUINN White (Graduate Student) COLTON alert Rcvd pt is part of [facility] - pt called his PCP who directed pt to Urgent care, [facility] called [facility] for transport to [facility] ED Called [facility] ok with accepting pt back, called [facility] for transport Oleg Hubbard docume nted in this encounter ED Notes Conversion Transaction, Provider Unknown - 11/20/2013 1:00 PM PDTFormatting of this note m ight be different from the original. ED Notes by Leslie Verdin RN at 11/20/13 1300 Author: Leslie Verdin RN Service: (none) Author Type: Registered Nurse Filed: 11/20/13 1312 Date of Service: 11/20/13 1300 Status: Signed Gypsum Roofer: Leslie Verdin RN (Registered Nurse) Oleg caser in stated they will be here at 1400 Leslie Verdin RN 11/20/13 1312 onver ivana Transaction, Provider Unknown - 11/20/2013 12:24 PM PDT ED Notes by Leslie Verdin RN at 11/20/13 1224 Author: Leslie Verdin RN Service: (none) Author Type: Registered Nurse Filed: 11/20/13 1311 Date of Service: 11/20/13 1224 Status: Signed Gypsum Roofer: Leslie Verdin RN (Registered Nurse) Call Oleg caser in to arrange transportation for pt Leslie Verdin RN 11/20/13 1311 Eduardo Hodge PA-C - 11/20/2013 11:48 AM PDT ED Provider Notes by Eduardo Mcmanus PA-C at 11/20/13 1148 Author: Eduardo Mcmanus PA-C Service: (none) Author Type: Physician Cushion Cover Inspector - Certi fied Filed: 11/20/13 1220 Date of Service: 11/20/13 1148 Status: Attested Addendum Gypsum Roofer: Eduardo Mcmanus PA-C (Physician Cushion Cover Inspector - Certified) Related Notes: Original Note by Eduardo Mcmanus PA-C (Physician Cushion Cover Inspector - Certified) filed at 11/20/13 1216 Cosigner: Ger Llamas MD at 11/20/13 1347 Attestation signed by Ger Llamas MD at 11/20/13 6344 I have reviewed the note and supervised the mid-level provider. Procedures [facility] Department of Emergency Medicine HPI History of Present Illness Patient Identification Kevyn Guzman is a 57 y.o. male. Patient information was obtained from patient. History/Exam limitations: none. Patient presented to the Emergency Department by: [place] [facility] Chief Complaint Chief Complaint Patient presents with Abdominal Pain LLQ, 1/10 Otalgia bilateral ears, 7/10 pain The patient complains of bilateral ear pain pressure and fullness with a buzzing like sound . Onset of symptoms was 2 days, with a worsening course since that time. The symptoms are d escribed to be of mild severity. The patient also complains of ear pain patient [facility] also has chronic stomach issues from gas no active at present. The patient describes the quality and location of the symptoms as the following: both ears pain when touched and while resting Care prior to arrival consisted of none, with no relief. Past Medical History Diagnosis Date Diabetes mellitus [...] - CHOLECYSTECTOMY; Surgeon: Jevon Vargas DO; Location: [facility] MAIN OR; Service: General; 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; Abdominal surgery Cholecystectomy Skin cancer excision 10/10/2012 Procedure: EXCISION - SKIN CANCER; Surgeon: Sy Fierro MD; Location: [facility] MAIN OR ; Service: Plastics; Laterality: Left; upper arm and upper back w/frozen section Esophagogastroduodenoscopy 03/03/2013 Procedure: ESOPHAGOGASTRODUODENOSCOPY; Surgeon: Howie Gibson MD; Location: [facility] ENDOSCOPY; S ervice: Gastroenterology; 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; Colonoscopy 03/04/2013 Procedure: COLONOSCOPY; Surgeon: Howie Gibson MD; Location: [facility] ENDOSCOPY; Service: Gastroe nterology; 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; Upper gastrointestinal endoscopy Skin biopsy Hernia repair 07/03/2013 Procedure: LAPAROSCOPIC - HERNIA - INCISIONAL; Surgeon: Jevon Vargas DO; Location: [facility] MAIN OR; Service: General; 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; Prior to Admission medications Medication Sig Start Date End Date Taking? Authorizing Provider Albuterol Sulfate (VENTOLIN HFA IN) Inhale 2 puffs into the lungs as needed. Historical Provider amLODIPine (NORVASC) 5 MG tablet 1 TAB BY MOUTH EVERY DAY 10/13/13 Thang Sterling MD ARIPiprazole (ABILIFY) 15 MG tablet Take 15 mg by mouth daily. Historical Provider aspirin 81 MG chewable tablet Take 1 tablet by mouth daily with breakfast. 05/27/13 05/27/14 Augustine Agosto MD calcium carbonate (TUMS) 500 MG chewable tablet Take 500-1,000 mg by mouth daily as needed. For GERD Historical Provider cloNIDine (CATAPRES) 0.2 MG tablet Take 1 tablet by mouth 3 (three) times daily. 03/05/13 Scott Martínez MD docusate sodium (COLACE) 100 [...] insulin glargine (LANTUS) 100 UNIT/ML injection Inject 79 Units into the skin nightly. H istorical Provider xmjhuyaat-ezctblck-wlhjnyufn hydroxide-simethicone Take 40 mLs by mouth daily [...] mg per day. Historical Provider LORazepam (ATIVAN) 1 MG tablet Take 1 mg by mouth every 6 (six) hours as needed. Histori amadou Provider meclizine (ANTIVERT) 25 MG tablet Take 25 mg by mouth 3 (three) times daily as needed. Kalpana cations: Sensation of Spinning or Whirling Historical Provider Mometasone Furo-Formoterol Fum (DULERA) 100-5 [...] tablet Take 4 mg by mouth every 3 (three) hour s as needed. Historical Provider oxyCODONE-acetaminophen (PERCOCET) 5-325 MG per tablet Take 1 tablet by mouth every 4 (four ) hours as needed for Pain. Historical Provider [...] on file Social History Narrative Lives in snf, IADL, full code Family History Problem Relation Age of Onset Heart disease Father Heart disease Sister Diabetes type II Sister Heart Problems Brother ROS Review of Systems Constitutional: Negative for: fever, chills, fatigue, sweats or weight loss Eyes: Negative for: decreased vision or irritated eyes Ears: Positive for ear pain, decrease hearing Nose: Negative for: nosebleed Throat: Negative for: mouth sores Cardiovascular/Respiratory: Negative for: chest pain, shortness of breath, cough Gastrointestinal: Negative for: abdominal pain, vomiting, diarrhea, black or bloody stools Genitourinary: Negative for: dysuria, hematuria, urinary problems Musculoskeletal: Negative for: myalgias and arthralgias Skin: Negative for: laceration or lesion Neuro and psych: Negative for: fainting, head injury, seizure, trouble walking Endocrine/Heme/Lymph: Negative for: swollen lymph nodes, easy bruising Physical Exam Physical Exam BP 165/84 | Pulse 88 | Temp(Src) 97.5 F (36.4 C) (Oral) | Resp 18 | Wt 102.059 kg (225 lb) | BMI 33.21 kg/m2 | SpO2 92% Pulse Oximetry interpretation: Normal General: Alert, in no apparent distress Eyes: Normal inspection, pupils equal and round, non-icteric ENT: Ears obscured with cerumen tender with manipulation of auricle and pinna. Nose normal Pharynx dry Neck: Normal inspection Supple No lymphadenopathy No meningismus Cardiovascular: Rate and rhythm normal No murmurs Respiratory: Breath sounds normal bilaterally Abdomen: Soft, non-tender, non-distended No guarding or rebound Genitourinary: Deferred Rectal exam: Deferred Back: Normal inspection Skin: Color normal Warm and dry No rash Neuro: No motor deficit No sensory deficit Normal gait ED Course Medical Decision Making and Emergency Department Course Cerumen impaction, OM, OE ED Department Course Reviewed COLTON note and discussed physical exam findings and treatment plan, also need to fo llow up with PCP in 2 days. Recommend ear lavage which can be done by assistant controller living staff. Patient has chronic abdom inal pain mostely due to gas during exam denied a current issue and Tums has been caring for it. Records Reviewed Nursing notes. Labs & Radiology Results Laboratory Evaluation Results None Radiology and EKG Evaluation Imaging Results None Diagnosis & Disposition ED Diagnosis Final diagnosis Cerumen impaction, bilateral Disposition: ED Disposition Discharge Condition at discharge: Stable Follow-up Information Follow up With Details Comments Contact Info Jerrell Gross Jean-Claudekimberlydaniel, DO Go in 2 days [address] [facility] [address] [facility] [address] Discharge Medications: New Prescriptions ANTIPYRINE-BENZOCAINE (AURALGAN) OTIC SOLUTION Place 4 drops into both ears once. Eduardo Mcmanus PA-C 11/20/13 1216 Eduardo Mcmanus PA-C 11/20/13 1220 Ger Llamas MD 11/20/13 1349 onversion Transact ion, Provider Unknown - 11/20/2013 11:41 AM PDTFormatting of this note might be different fr om the original. ED Notes by Melania Hammer RN at 11/20/13 1141 Author: Melania Hammer RN Service: (none) Author Type: Registered Nurse Filed: 11/20/13 114 Date of Service: 11/20/13 1141 Status: Signed Gypsum Roofer: Melania Hammer RN (Registered Nurse) Here from [facility] with bilat ear pain, states started last night and chronic left qu ad pain that has been ongoing since February, was seen here on the Melania Hammer RN 11/20/133 onver ivana Transaction, Provider Unknown - 11/20/2013 11:35 AM PDT ED Notes by Michelle Palomares RN at 11/20/131134 Author: Michelle Palomares RN Service: (none) Author Type: Registered Nurse Filed: 11/20/131134 Date of Service: 11/20/131134 Status: Signed Gypsum Roofer: Michelle Palomares RN (Registered Nurse) Bed: 02 Expected date: Expected time: Means of arrival: Comments: docume nted in this encounter Plan of Treatment +--------+---------+ + + + | Date | Type | Specialty | Care Team | Description | +--------+---------+ + + + | 09/10/ | Office | Geriatric Medicine | Mireya Pack, | | | 2019 | Visit | | LEGAL ADMINISTRATIVE ASSISTANT [address] | | | | | | [address] [place], | | | | | | [place] [address] | | | | | | [phone] | | | | | | | | +--------+---------+ + + + | 09/29/ | Office | Urology | Mireya Pack, | | | 2019 | Visit | | LEGAL ADMINISTRATIVE ASSISTANT [address] | | | | | | [address] [place], | | | | | | [place] [address] | | | | | | [phone] | | | | | | | | | | | | Toy Wild, DO | | | | | | [address] | | | | | | [place] [address] | | | | | | [phone] | | | | | | | | +--------+---------+ + + + documented as of this encounter Visit Diagnoses + + | Diagnosis | + + | Cerumen impaction, bilateral | + + documented in this encounter"
--- OUTSIDE RECORDS SUMMARY | ~2019-09-09 | XMS | Encounter Summary ---
Demographics + + + | Address | [address] | | | [place] [address] | + + + | Home Phone | | + + + | Preferred Language | Unknown | + + + | Marital Status | | + + + | Sikhism Affiliation | 1027 | + + + | Race | Unknown | + + + | Ethnic Group | Unknown | + + + Author + + + | Author | [facility] | | | and [place] | + + + | Organization | [facility] | | | and [place] | + + + | Address | Unknown | + + + | Phone | Unavailable | + + + Support + + + + + | Name | Relationship | Address | Phone | + + + + + | Sammi Kohler | ECON | [place] [address] | | + + + + + Care Team Providers + +------+ + | Care Pump Technician Name | Role | Phone | + +------+ + | Mireya Pack NP | PCP | | + +------+ + Reason for Visit + + + | Reason | Comments | + + + | ED Follow-up | | + + + Encounter Details +--------+ + + + + | Date | Type | Department | Care Team | Description | +--------+ + + + + | 04/14/ | Telephone | [facility] | Mireya Pack, | ED Follow-up | | 2020 | | [facility] [address] | ENERGY ECONOMIST [address] | | | | | [address] | [address] [place], | | | | | [place], [place] | [place] [address] | | | | | [address] | [phone] | | | | | [phone] | | | +--------+ + + + [...] Telephone Encounter - Lucia Amos RN - 04/15/2019 11:55 AM PDTCall received from [facility], patient called to cancel the ED follow up apt for Monday. Call center shantadaniel chetan said that patient reported not having any money and can not make the apt. Patient then hun g up the phone. Routed to PCP as MARY. elephone Encounter - Lucia Amos RN - 04/15/2019 11:16 AM PDTAppointment schedu led on Monday at 11am with PCP. Electronically signed by Lucia Amos RN at 020 11:19 AM PDTTelephone Encounter - Heidi Moody - 04/15/2019 8:30 AM PDTPatient amadou led was in the er and needs to follow up with provider. Please call him at [phone] Heidi Moody documented in this enco unter Plan of Treatment +--------+---------+ + + + | Date | Type | Specialty | Care Team | Description | +--------+---------+ + + + | 09/10/ | Office | Geriatric Medicine | Mireya Pack, | | 2019 | Visit | | ENERGY ECONOMIST [address] | | | | | | [address] [place], | | | | | | [place] [address] | | | | | | [phone] | | | | | | | | +--------+---------+ + + + | 09/29/ | Office | Urology | Mireya Pack, | | | 2019 | Visit | | ENERGY ECONOMIST [address] | | | | | | [address] [place], | | | | | | [place] [address] | | | | | | [phone] | | | | | | | | | | | | Toy Wild, DO | | | | | | [address] | | | | | | [place] [address] | | | | | | [phone] | | | | | | | | +--------+---------+ + + + documented as of this encounter Visit Diagnoses Not on filedocumented in this encounter"
--- OUTSIDE RECORDS SUMMARY | ~2019-09-09 | XMS | Encounter Summary ---
Demographics + + + | Address | [address] | | | [place] [address] | + + + | Home Phone | | + + + | Preferred Language | Unknown | + + + | Marital Status | | + + + | Sabianism Affiliation | 1027 | + + + | Race | Unknown | + + + | Ethnic Group | Unknown | + + + Author + + + | Author | [facility] | | | and [place] | + + + | Organization | [facility] | | | and [place] | + + + | Address | Unknown | + + + | Phone | Unavailable | + + + Support + + + + + | Name | Relationship | Address | Phone | + + + + + | Sammi Kohler | ECON | [place] [address] | | + + + + + Care Team Providers + +------+ + | Care Alternative Financing Specialist Name | Role | Phone | + +------+ + | Mireya Pack NP | PCP | | + +------+ + Reason for Referral Evaluate & Treat (Routine) + + + + + + + | Status | Reason | Specialty | Diagnoses / | Referred By | Referred To | | | | | Procedures | Contact | Contact | + + + + + + + | Authorized | Specialty | Urology | Diagnoses | Sirena | [facility] | | | Services | | BPH with | Mireya Claixto NP | [address] | | | Required | | obstruction/ | [address] | | | | | lower | [address] | [place], [place] | | | | | urinary | [address] | [address] | | | | | tract | [place], [place] | Phone: | | | | | symptoms | [id number] | [phone] | | | | | | Phone: | Fax: | | | | | | [phone] | [phone] | | | | | | Fax: | | | | | | | [phone] | | + + + + + + + Encounter Details +--------+ + + + + | Date | Type | Department | Care Team | Description | +--------+ + + + + | 07/09/ | Virtual | [facility] | Mireya Pack, | Essential | | 2020 | Office | [facility] | BIOMEDICAL ENGINEERING DIRECTOR [address] | hypertension | | | Visit | [address] | [address] [place], (Primary Dx); Type 2 | | | | [place], [place] | [place] [address] | diabetes mellitus | | | | [address] | [phone] | with hyperglycemia, | | | | [phone] | | with long-term | | | | | | current use of | | | | | | insulin (HCC); BPH | | | | | | with | | | | | | obstruction/lower | | | | | | urinary tract | | | | | | symptoms; Diarrhea, | | | | | | unspecified type | +--------+ + + + + Social [...] + documented as of this encounter Progress Mireya Pérez NP - 07/10/2019 3:00 PM PDTFormatting of this note might be different fr om the original. Subjective: Patient ID: Kevyn Guzman is a 63 y.o. male You have chosen to receive care through the use of telemedicine. Telemedicine enables [facility] care providers at different locations to provide safe, effective and convenient care throu gh the use of technology. As with any health care service, there are risks associated with t he use of telemedicine, including equipment failure, poor image resolution and information s ecurity issues. Do you understand the risks and benefits of telemedicine as I have explained them to you? " Yes" Have your questions regarding telemedicine been answered? "Yes" Patient is currently at home Do you consent to the use of telemedicine in your medical care today? Yes. Last question, I need to confirm where are you physically located right now? Answer: Patient confirms they are located in a state where IMireya NP am licen sed. Patient agrees to telephone/virtual appointment, Time appointment started: 1500 Significant history of: Past Medical History: Diagnosis Date Acute pulmonary embolism (HCC) 10/14/2017 Anxiety ARF (acute renal failure) (HCC) 03/02/2013 Atrial fibrillation (HCC) Basal cell carcinoma 09/26/2012 arm and back COPD (chronic obstructive pulmonary disease) (HCC) 03/02/2013 hypoxemia on 2 lts nc Depression Development delay Diabetes mellitus type II DVT (deep venous thrombosis) (HCC) 03/29/2018 Facial droop 07/08/2013 GIB (gastrointestinal bleeding) 03/02/[address] Nru, rectal ulcers, nodule of GE junction Hypercholesterolemia 07/08/2013 Hyperlipidemia 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 Obesity, Class I, BMI 30-34.9 07/08/2013 WARD (obstructive sleep apnea) 08/11/2012 does not use CPAP because of the noise Other chronic pain Renal failure Stroke (HCC) TIA (transient ischemic attack) Unspecified visual disturbance reading glasses Past Surgical History: Procedure Laterality Date ABDOMEN SURGERY CHOLECYSTECTOMY CHOLECYSTECTOMY, LAPAROSCOPIC 09/12/2012 Procedure: LAPAROSCOPIC - CHOLECYSTECTOMY; Surgeon: Jevon Vargas DO; Location: [facility]; Service: General; 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; COLONOSCOPY COLONOSCOPY 03/04/2013 Procedure: COLONOSCOPY; Surgeon: Howie Gibson MD; Location: [facility]; Service: Gastroen terology; 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; HERNIA REPAIR 07/03/2013 Procedure: LAPAROSCOPIC - HERNIA - INCISIONAL; Surgeon: Jevon Vargas DO; Location: [facility] MAIN [facility]; Service: General; 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; KNEE SURGERY rt knee, patella LEG SURGERY LLE OTHER SURGICAL HISTORY UNLISTED PROCEDURE ARTHROSCOPY OTHER SURGICAL HISTORY Left 05/05/2014 SKIN LESION EXCISION - Procedure: EXCISION - LESION - FROZEN SECTION; Surgeon: Sy murcia MD; Location: [facility]; Service: Plastics; Laterality: Left; forearm SKIN BIOPSY SKIN CANCER EXCISION Left 10/10/2012 Procedure: EXCISION - SKIN CANCER; Surgeon: Sy Fierro MD; Location: [facility]; Service: Plastics; Laterality: Left; upper arm and upper back w/frozen section UPPER GASTROINTESTINAL ENDOSCOPY UPPER GASTROINTESTINAL ENDOSCOPY 03/03/2013 Procedure: ESOPHAGOGASTRODUODENOSCOPY; Surgeon: Howie Gibson MD; Location: [facility]; Se rvice: Gastroenterology; 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; Social [...] Lives alone x 1 wk, moved from [facility], , 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 2 falls in the last 6 months. Family History Problem Relation Age of Onset Heart disease Father Heart disease Sister Diabetes, NIDDM Sister Other (see comment) Brother Heart Problems Allergies: Allergies Allergen Reactions Nitroglycerin Swelling Tongue swelling Vitamin B12 Rash Rash Current Medications: Current Outpatient Medications Medication Sig Dispense Refill apixaban (ELIQUIS) 5 [...] on 07/03/2019) 1 Inhaler 0 carvedilol (COREG) 6.25 mg tablet Take 2 tablets by mouth 2 times daily for 7 days. 28 tablet 0 finasteride (PROSCAR) 5 mg tablet Take 1 tablet by mouth Daily. (Patient not taking: Re ported on 07/03/2019) 30 tablet 4 Glucose Blood (BLOOD GLUCOSE TEST STRIPS) STRP For blood sugar testing 4 times daily 40 0 each 3 hydrALAZINE (APRESOLINE) 25 mg tablet Take 1 tablet by mouth 2 times daily for 7 days. 14 tablet 0 HYDROcodone-acetaminophen (NORCO) 5-325 mg per tablet Take [...] hr tablet Take 1 tablet by mouth Daily for 7 days. 7 ta blet 0 omeprazole (PRILOSEC) 20 mg capsule TAKE ONE CAPSULE BY MOUTH EVERY MORNING (BEFORE HEAVENLY AKFAST) (Patient not taking: Reported on 07/03/2019) 90 capsule 3 tamsulosin (FLOMAX) 0.4 mg CAPS Take 1 capsule by mouth 2 times daily. (Patient not dominique ing: Reported on 07/03/2019) 60 capsule 4 No current facility-administered medications for this visit. HPI Patient reports that he has had loose stools starting 3 days ago improved with pepto , appe tite is good Patient's medications, allergies, past medical, surgical, social and family histories were obtained and reviewed as appropriate. Review of Systems Constitutional: Negative for activity change, appetite change, chills, fatigue, fever and u nexpected weight change. Respiratory: Negative for cough, chest tightness, shortness of breath and wheezing. Cardiovascular: Negative for chest pain and leg swelling. Gastrointestinal: Positive for diarrhea. Negative for abdominal distention, abdominal pain and constipation. Genitourinary: Positive for frequency. Negative for difficulty urinating and dysuria. Musculoskeletal: Negative for arthralgias, back pain and gait problem. Skin: Negative for rash and wound. Psychiatric/Behavioral: Negative for dysphoric mood and sleep disturbance. The patient is n ot nervous/anxious. Objective: Physical Exam There were no vitals taken for this visit. Lab Results Component Value Date NA 141 07/06/2019 CL 106 07/06/2019 K 3.4 (L) 07/06/2019 CO2 25 07/06/2019 BUN 17 07/06/2019 EGFR >60 07/06/2019 GLUF 292 (H) 09/21/2018 GLOB 2.7 09/21/2018 BILITOT 0.5 09/21/2018 AST 16 07/06/2019 ALT 12 07/06/2019 Lab Results Component Value Date WBC 10.62 07/06/2019 HGB 12.9 (L) 07/06/2019 HCT 39.9 07/06/2019 MCV 83.6 07/06/2019 PLT 237 07/06/2019 Lab Results Component Value Date CHOL 182 01/04/2019 TRIG 496 (H) 01/04/2019 HDL 25 (L) 01/04/2019 LDL LDL NOT VALID WHEN TRIG >400 mg/dL 01/04/2019 Lab Results Component Value Date CHOL 182 [...] (H) 10/12/2018 No results found for: CHOLHDL Lab Results Component Value Date HBA1C 9.3 (H) 05/17/2019 No components found for: [id number], PTHINT No results found for: [id number] Lab Results Component Value Date TSH 2.780 03/27/2019 No results found for: IRON, TIBC, FERRITIN . No results found for: FERRITIN Assessment/Plan: Diagnoses and all orders for this visit: Essential hypertension - hydrALAZINE (APRESOLINE) 25 mg tablet; Take 1 tablet by mouth Twice daily as needed (in addition to scheduled. for bp > 170/80). Type 2 diabetes mellitus with hyperglycemia, with long-term current use of insulin ([facility]) Discussed glycemic goals, patient States remainong <250 bs Continue insulin BPH with obstruction/lower urinary tract symptoms Urine culture 07/05 negative no further abx Diarrhea, unspecified type - Clostridium difficile A and B EIA; Future Time appointment completed: 1531 20 3:32 PM PDTdocumented in this encounter Plan of Treatment +--------+---------+ + + + | Date | Type | Specialty | Care Team | Description | +--------+---------+ + + + | 09/10/ | Office | Geriatric Medicine | Mireya Pack, | | | 2019 | Visit | | BIOMEDICAL ENGINEERING DIRECTOR [address] | | | | | | [address] [place], | | | | | | [place] [address] | | | | | | [phone] | | | | | | | | +--------+---------+ + + + | 09/29/ | Office | Urology | Mireya Pack, | | | 2019 | Visit | | BIOMEDICAL ENGINEERING DIRECTOR [address] | | | | | | [address] [place], | | | | | | [place] [address] | | | | | | [phone] | | | | | | | | | | | | Toy Wild, DO | | | | | | [address] | | | | | | [place] [address] | | | | | | [phone] | | | | | | | | +--------+---------+ + + + + + +--------+ + + | Name | Type | Priori | Associated Diagnoses | Order Schedule | | | | ty | | | + + +--------+ + + | Clostridium | Microbiolog | Routin | Diarrhea, | 1 Occurrences | | difficile A and B | y | e | unspecified type | starting 07/10/2019 | | EIA | | | | until 07/09/2020 | + + +--------+ + + + + +--------+ + + | Name | Type | Priori | Associated Diagnoses | Order Schedule | | | | ty | | | + + +--------+ + + | Ambulatory referral | Outpatient | Routin | BPH with | Ordered: 07/10/2019 | | to Urology | Referral | e | obstruction/lower | | | | | | urinary tract | | | | | | symptoms | | + + +--------+ + + documented as of this encounter Visit Diagnoses + + | Diagnosis | + + | Essential hypertension - Primary Unspecified essential hypertension | + + | Type 2 diabetes mellitus with hyperglycemia, with long-term current use of insulin | | (HCC) | + + | BPH with obstruction/lower urinary tract symptoms Hypertrophy of prostate with | | urinary obstruction and other lower urinary tract symptoms (LUTS) | + + | Diarrhea, unspecified type | + + documented in this encounter [...]
--- OUTSIDE RECORDS SUMMARY | ~2019-09-09 | XMS | Encounter Summary ---
Demographics + + + | Address | [address] | | | [place] [address] | + + + | Home Phone | | + + + | Preferred Language | Unknown | + + + | Marital Status | | + + + | Faith Affiliation | 1027 | + + + | Race | Unknown | + + + | Ethnic Group | Unknown | + + + Author + + + | Author | [facility] | | | and [place] | + + + | Organization | [facility] | | | and [place] | + + + | Address | Unknown | + + + | Phone | Unavailable | + + + Support + + + + + | Name | Relationship | Address | Phone | + + + + + | Sammi Kohler | ECON | [place] [address] | | + + + + + Care Team Providers + +------+ + | Care X Ray Equipment Mechanic Name | Role | Phone | + +------+ + PCP | Unavailable | + +------+ + Encounter Details +--------+ + + + + | Date | Type | Department | Care Team | Description | +--------+ + + + + | 03/04/ | Emergency | [facility] | Jayce Allred, | Headache; | | 2012 | | [facility] | MD [address] | Hypertension; | | | | EMERGENCY CENTER | [place], [place] | Hypokalemia | | | | [address] | [address] | | | | | [place], [place] | [phone] | | | | | [address] | | | | | | [phone] | | | +--------+ + + + [...] ED Notes Conversion Transaction, Provider Unknown - 03/04/2012 4:10 AM PSTFormatting of this note m ight be different from the original. ED Notes by Itzel Hussein RN at 03/04/12409 Author: Itzel Hussein RN Service: (none) Author Type: Registered Nurse Filed: 03/04/1230 Date of Service: 03/04/12409 Status: Signed Sales Representative [facility]: Itzel Hussein RN (Registered Nurse) Called [employer] for transport home, Pt notified of long wait for ride home. Pt restin g comfortably, no s/s distress, skin warm and dry, denies any pain at present. Spoke with lucy king, ok for patient to remain in room resting until taxi arrives. Itzel Hussein RN 03/04/12529 ONDAEgliJayce MD - 03/04/2012 2:01 AM PSTFormatting of this note might be different from the o riginal. ED Provider Notes by Jayce Allred MD at 03/04/12200 Author: Jayce Allred MD Service: (none) Author Type: Physician Filed: 03/04/12 1416 Date of Service: 03/04/12200 Status: Signed Sales Representative [facility]: Jayce Allred MD (Physician) [facility] Department of Emergency Medicine 03/04/2012 History of Present Illness Patient Identification Kevyn Guzman is a 56 y.o. male. Patient information was obtained from patient. History/Exam limitations: none. Patient presented to the Emergency Department by: [facility] A411 Chief Complaint Chief Complaint Patient presents with Headache Dizziness Hypertension 02:01. Pt presents to the ED via EMS with headache. Patient describes the headache as pound ing. Patient states the symptoms have been occuring for 4 days. Patient reports that he has not had a normal appetite because of the dizziness. Onset of symptoms was gradual, with an i ntermittent course since that time. Severity is described as moderate. Patient also complain s of dizziness when he stands up and "off and on" tingling in the lower extremities. Patient denies nausea. The patient does not report any exacerbating or alleviating factors. Past Medical History Diagnosis Date Diabetes mellitus [...] MD atenolol (TENORMIN) 100 MG tablet Take by mouth. Historical Provider ATENOLOL PO Take 100 mg [...] meals. Historical Provider METFORMIN HCL PO Take 500 mg by mouth 2 (two) [...] Constitutional: Negative for: fever or chills Cardiovascular: Negative for: palpitations, leg swelling, or chest pain Respiratory: Negative for: cough or shortness of breath Gastrointestinal: Negative for: nausea, vomiting, or abdominal pain Genitourinary: Negative for: dysuria, flank pain, or hematuria. Musculoskeletal: Negative for: myalgias Positive for: tingling in the lower extremities Skin: Negative for: laceration, rash, or lesion Neuro and psych: Negative for: fainting Positive for: headache and dizziness All other systems were reviewed and are subjectively reported as negative. Physical Exam BP 197/98 | Pulse 72 | Temp(Src) 97.2 F (36.2 C) (Oral) | Resp 18 | Wt 103.42 kg (228 l b) | SpO2 92% Pulse Oximetry Interpretation: hypoxic (92%) General: Alert, no active distress Eyes: Normal inspection, pupils equal and round, non-icteric ENT: Normal external inspection Neck: Normal inspection Supple Full ROM Cardiovascular: Normal rate and rhythm, no extra sounds Respiratory: No respiratory distress or wheezing Abdomen: Soft, non-tender, non-distended Back: Normal inspection Skin: Color normal Warm and dry Extremities: BARNARD Neuro: No gross motor/sensory deficit Medical Decision Making and Emergency Department Course ED Department Course 02:07. Pt presents to the ED via EMS with headache. Patient also complains of dizziness whe n he stands up and "off and on" tingling in the lower extremities. Patient denies nausea. On exam, there were no remarkable findings. Will order cardiac panel, orthostatic vitals, and CT head. 03:30. Reviewed labs and CT. Patient is hypokalemic, otherwise there are no remarkable find ings. 03:37. Patient reevaluation. Discussed lab and CT results with patient. Informed patient of abnormal Potassium levels, but otherwise generally normal lab results. Discussed with patie nt plan for discharge. Patient is to follow up with his PCP for his hypokalemia. Patient und erstands and agrees to plan. Discussed signs and symptoms that would necessitate a return to the ED. All patient questions and concerns addressed at this time. Patient is ready for dis charge. Records Reviewed Nursing Notes Old medical records reviewed. Laboratory Evaluation Results Procedure Component Value Ref Range Date/Time Cardiac Panel [[id number]] (Abnormal) Collected:03/04/12219 Order Status:Completed Updated:03/04/12257 WBC 9.4 3.8 - 11.0 K/uL RBC 5.08 4.20 - 5.70 M/uL HGB 14.8 13.2 - 17.0 g/dL HCT 44.1 39.0 - 50.0 % MCV 86.8 80.0 - 100.0 fl MCH 29.0 27.0 - 34.0 pg MCHC 33.5 32.0 - 35.5 g/dL RDW SD 40.3 37 - 53 fl PLT 253 150 - 400 K/uL MPV 7.7 fl DIFF TYPE AUTOMATED NEUTROPHILS 44.7 40 - 75 % LYMPHOCYTES 37.3 15 - 48 % MONOCYTES 9.9 0 - 12 % EOSINOPHILS 7.5 (H) 0 - 7 % BASOPHILS 0.6 0 - 2 % NEUTROPHILS ABS 4.2 1.9 - 7.4 K/uL LYMPHOCYTES ABS 3.5 1.0 - 3.9 K/uL MONOCYTES ABS 0.9 (H) 0 - 0.8 K/uL EOSINOPHILS ABS 0.7 (H) 0 - 0.5 K/uL BASOPHILS ABS 0.1 0 - 0.1 K/uL SODIUM 146 (H) 135 - 143 mmol/L POTASSIUM 3.3 (L) 3.5 - 4.9 mmol/L CHLORIDE 110 (H) 99 - 109 mmol/L CO2 25 23 - 32 mmol/L ANION GAP AGAP 14 5 - 20 mmol/L GLUCOSE 110 (H) 65 - 99 mg/dL BUN 13 8 - 25 mg/dL CREATININE 1.01 0.70 - 1.30 mg/dL BUN/CREAT 13 CALCIUM 8.5 8.5 - 10.2 mg/dL TOTAL PROTEIN 7.5 6.3 - 8.2 g/dL Albumin 3.5 (L) 3.6 - 5.0 g/dL GLOBULIN 4.0 1.3 - 4.9 g/dL A/G 0.9 (L) 1.0 - 2.4 TBIL 0.3 0.1 - 1.5 mg/dL ALK PHOS 76 35 - 115 U/L AST 24 10 - 45 U/L ALT 29 10 - 65 U/L EGFR >60 >60 mL/min/1.73m2 CPK 63 55 - 400 U/L INR 1.0 0.9 - 3.5 APTT 25 23 - 32 seconds MMB 0.8 0.5 - 3.6 ng/mL CK-MB Index 1.3 TSH [[id number]] Collected:03/04/12219 Order Status:Completed Updated:03/04/12257 Specimen Information:Blood TSH 4.90 0.45 - 5.10 uIU/mL Radiology and EKG Evaluation Imaging Results CT Head Non-Con (Preliminary result) Result time:03/04/12239 Preliminary result by Rad Results In Richard (03/04/12 02:40:05) Narrative: IMPRESSION: No acute or focal intracranial process. RADIA Read by Hermes Lopez MD on Mar 04 2012 2:40AM Preliminary result by Rad Results In Richard (03/04/12 02:40:05) Narrative: IMPRESSION: No acute or focal intracranial process. RADIA Read by Hermes Lopez MD on Mar 04 2012 2:40AM EKG results from 02:23 Rate: 65 Normal sinus rhythm Normal ECG Reviewed by , Jayce Allred MD ED Diagnoses Final diagnoses Headache Poorly controlled hypertension Hypokalemia Disposition: ED Disposition Discharge Condition at discharge: Stable Follow-up Information Follow up With Details Comments Contact Info Jerrell Diego DO Make an appointment Make appointment for monday [address] [address] Discharge Medications: New Prescriptions No new medications Additional Documentation Procedures Attending Note: Documentation assistance provided by Leonid Nevarez (Scribe). Information recorded by the scribe has been reviewed and validated by me. Troy laughlin with its contents. MD Jayce Caraballo MD 03/04/12 1416 documented in this e ncounter Plan of Treatment +--------+---------+ + + + | Date | Type | Specialty | Care Team | Description | +--------+---------+ + + + | 09/10/ | Office | Geriatric Medicine | Mireya Pack, | | | 2019 | Visit | | TRAILHEAD CONSTRUCTION WORKER [address] | | | | | | [address] [place], | | | | | | [place] [address] | | | | | | [phone] | | | | | | | | +--------+---------+ + + + | 09/29/ | Office | Urology | Mireya Pack, | | | 2019 | Visit | | TRAILHEAD CONSTRUCTION WORKER [address] | | | | | | [address] [place], | | | | | | [place] [address] | | | | | | [phone] | | | | | | | | | | | | Toy Wild, DO | | | | | | [address] | | | | | | [place] [address] | | | | | | [phone] | | | | | | | | +--------+---------+ + + + documented as of this encounter Procedures + +--------+ + + + | Procedure Name | Priori | Date/Time | Associated Diagnosis | Comments | | | ty | | | | + +--------+ + + + | CT HEAD WO CONTRAST | Routin | 03/04/2012 | | Results for this | | | e | 2:30 AM | | procedure are in the | | | | PST | | results section. | + +--------+ + + + documented in this encounter Results CT Head wo Contrast (03/04/2012 2:30 AM PST) + + | Specimen | + + | | + + + + + | Narrative | Performed At | + + + | EXAM: HEAD CT EXAM DATE: 03/04/2012 02:27 AM CLINICAL | | | HISTORY: Vertigo/dizziness. COMPARISON: None. TECHNIQUE: | | | Multiaxial CT images were obtained from the foramen magnum to the | | | vertex. IV contrast: None. FINDINGS: Parenchyma: No intracranial | | | hemorrhage. No evidence of mass, midline shift or CT findings of | | | infarction. Morrissey-white differentiation is distinct. Extraaxial | | | Spaces: Normal for age. No subdural or epidural collections | | | identified. Ventricles: Normal in size and position. Sinuses: | | | Imaged paranasal sinuses, orbits, and mastoids show no significant | | | abnormality. Bones: No evidence of fracture or calvarial defect. | | | Other: None. IMPRESSION: No acute or focal intracranial | | | process. RADIA Electronically signed by Hermes Lopez MD on | | | Mar 04 2012 3:12PM | | + + + + + | Procedure Note | + + | Richard, Rad Conversion - 09/28/2018 3:24 PM PDT EXAM:HEAD CT EXAM DATE: 03/04/2012 02:27 | | AM CLINICAL HISTORY: Vertigo/dizziness. COMPARISON: None. TECHNIQUE: Multiaxial CT | | images were obtained from the foramen magnum to the vertex. IV contrast: None. | | FINDINGS:Parenchyma: No intracranial hemorrhage. No evidence of mass, midline shift or | | CT findings of infarction. Morrissey-white differentiation is distinct. Extraaxial Spaces: | | Normal for age. No subdural or epidural collections identified. Ventricles: Normal in | | size and position. Sinuses: Imaged paranasal sinuses, orbits, and mastoids show no | | significant abnormality. Bones: No evidence of fracture or calvarial defect. Other: | | None. IMPRESSION: No acute or focal intracranial process. RADIA Electronically signed | | by Hermes Lopez MD on Mar 04 2012 3:12PM | | | |FINDINGS: | |Parenchyma: No intracranial hemorrhage. No evidence of mass, midline shift or CT findings o f infarction. Morrissey-white differentiation is distinct. | | | |Extraaxial Spaces: Normal for age. No subdural or epidural collections identified. | | | |Ventricles: Normal in size and position. | | | |Sinuses: Imaged paranasal sinuses, orbits, and mastoids show no significant abnormality. | | | |Bones: No evidence of fracture or calvarial defect. | | | |Other: None. | | | |IMPRESSION: No acute or focal intracranial process. | | | |RADIA | | | | Electronically signed by Hermes Lopez MD on Mar 04 2012 3:12PM | + + documented in this encounter Visit Diagnoses + + | Diagnosis | + + | Headache(784.0) Headache | + + | Hypertension Unspecified essential hypertension | + + | Hypokalemia Hypopotassemia | + + documented in this encounter
--- OUTSIDE RECORDS SUMMARY | ~2019-09-09 | XMS | Encounter Summary ---
Demographics + + + | Address | [address] | | | [place] [address] | + + + | Home Phone | | + + + | Preferred Language | Unknown | + + + | Marital Status | | + + + | Jewish Affiliation | 1027 | + + + | Race | Unknown | + + + | Ethnic Group | Unknown | + + + Author + + + | Author | [facility] | | | and [place] | + + + | Organization | [facility] | | | and [place] | + + + | Address | Unknown | + + + | Phone | Unavailable | + + + Support + + + + + | Name | Relationship | Address | Phone | + + + + + | Sammi Kohler | ECON | [place] [address] | | + + + + + Care Team Providers + +------+ + | Care Hog Sticker Name | Role | Phone | + +------+ + PCP | Unavailable | + +------+ + Encounter Details +--------+ + + + + | Date | Type | Department | Care Team | Description | +--------+ + + + + | 05/05/ | Hospital | [facility] | Sy Fierro, | Neoplasm of | | 2015 | Encounter | [facility] | MD [address] | uncertain behavior | | | | [address] | [address] [place], | of skin | | | | [place] | [place] [address] | | | | | [address] | [phone] | | | | | [phone] | | | +--------+ + + + [...] 05/05/14913 Date of Service: 05/05/14912 Status: Signed Computer Systems Design Analyst: Sy Fierro MD (Physician) [facility]: Plastic Surgery Brief Post-op Discharge Note [...] DO [address] [place] [address] Sy Fierro MD [address] [facility] [id number] In 2 weeks Medication List CHANGE how [...] tablet Refills: 0 Commonly known as: LaMICtal mndvozxsg-kjullnon-puigdqjxt hydroxide-simethicone Refills: 0 LORazepam 1 MG tablet [...] are the prescriptions that you need to vegetable picker. You may get the following medications from [...] H&P Note by Sy Fierro MD at 05/05/1459 Author: Sy Fierro MD Service: Plastic Surgery Author Type: Physician Filed: 05/05/1459 Date of Service: 05/05/14658 Status: Signed Computer Systems Design Analyst: Sy Fierro MD (Physician) [facility]: Plastic Surgery Pre-Operative History & Physical [...] Service: (none) Author Type: Physician Filed: 04/29/14 1110 Date of Service: 04/29/141108 Status: Signed Computer Systems Design Analyst: Sy Fierro MD (Physician) [facility]: Plastic Surgery Pre-Operative History & Physical [...] - CHOLECYSTECTOMY; Surgeon: Jevon Vargas DO; Location: [facility]; Service: General; 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; Abdominal surgery Cholecystectomy Skin cancer excision 10/10/2012 Procedure: EXCISION - SKIN CANCER; Surgeon: Sy Fierro MD; Location: [facility] ; Service: Plastics; Laterality: Left; upper arm and upper back w/frozen section Esophagogastroduodenoscopy 03/03/2013 Procedure: ESOPHAGOGASTRODUODENOSCOPY; Surgeon: Howie Gibson MD; Location: [facility]; S ervice: Gastroenterology; 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; Colonoscopy 03/04/2013 Procedure: COLONOSCOPY; Surgeon: Howie Gibson MD; Location: [facility]; Service: Gastroe nterology; 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; Upper gastrointestinal endoscopy Skin biopsy Hernia repair 07/03/2013 Procedure: LAPAROSCOPIC - HERNIA - INCISIONAL; Surgeon: Jevon Vargas DO; Location: [facility]; Service: General; 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; Allergies Allergen Reactions Vitamin B12 Rash Current Outpatient Prescriptions on File Prior to Visit Medication Sig Dispense Refill Albuterol Sulfate (VENTOLIN HFA IN) Inhale 2 puffs into the lungs as needed. 108 mcg/ac t Wdftt-O-Yuefaftctpxwm (BEANO) TABS Take 150 Units by mouth [...] 1 capsule by mouth daily. (Patient sb guhtrie differently: Take 240 mg by mouth daily. [...] tablet Take 100 mg by mouth nightly. oazpsytsr-liewofmg-pfvdrkmic hydroxide-simethicone Take 40 mLs by mouth daily [...] Edenilson light MD 240 mg at 04/28/14 09 [DISCONTINUED] enoxaparin (LOVENOX) injection 40 mg 40 [...] 11:09 AM PDT H&P (View-Only) by Sy Fierro MD at 04/29/14 1101 Author: Sy Fierro MD Service: (none) Author Type: Physician Filed: 04/29/14 9065 Date of Service: 04/29/141108 Status: Signed Computer Systems Design Analyst: Sy Fierro MD (Physician) [facility] Service: Plastic Surgery Pre-Operative History & Physical [...] - CHOLECYSTECTOMY; Surgeon: Jevon Vargas DO; Location: [facility]; Service: General; 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; Abdominal surgery Cholecystectomy Skin cancer excision 10/10/2012 Procedure: EXCISION - SKIN CANCER; Surgeon: Sy Fierro MD; Location: [facility] ; Service: Plastics; Laterality: Left; upper arm and upper back w/frozen section Esophagogastroduodenoscopy 03/03/2013 Procedure: ESOPHAGOGASTRODUODENOSCOPY; Surgeon: Howie Gibson MD; Location: [facility]; S ervice: Gastroenterology; 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; Colonoscopy 03/04/2013 Procedure: COLONOSCOPY; Surgeon: Howie Gibson MD; Location: [facility]; Service: Gastroe nterology; 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; Upper gastrointestinal endoscopy Skin biopsy Hernia repair 07/03/2013 Procedure: LAPAROSCOPIC - HERNIA - INCISIONAL; Surgeon: Jevon Vargas DO; Location: [facility]; Service: General; 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; Allergies Allergen Reactions Vitamin B12 Rash Current Outpatient Prescriptions on File Prior to Visit Medication Sig Dispense Refill Albuterol Sulfate (VENTOLIN HFA IN) Inhale 2 puffs into the lungs as needed. 108 mcg/ac t Ehgld-G-Alubnztsryzyc (BEANO) TABS Take 150 Units by mouth [...] tablet Take 100 mg by mouth nightly. bndbsebbj-yxrhdlzb-cdqmaonnj hydroxide-simethicone Take 40 mLs by mouth daily [...] tablet 4 mg 4 mg Oral Q6H PRSukhjinder Jimenez MD [DISCONTINUED] oxyCODONE-acetaminophen (PERCOCET) 5-325 MG [...] Edenilson Jimenez MD 18 mcg at 04/28/14 09 [DISCONTINUED] zolpidem (AMBIEN) tablet 5 mg 5 [...] 1237 Date of Service: 04/21/141231 Status: Signed Computer Systems Design Analyst: Ale Alfaro RN (Registered Nurse) MAR from [facility] is on chart. onver ivana Transaction, Provider Unknown - 04/21/2014 9:48 AM PDT Pre-Procedure Instructions by Ale Alfaro RN at 04/21/14947 Author: Ale Alfaro RN Service: (none) Author Type: Registered Nurse Filed: 04/21/1454 Date of Service: 04/21/14947 Status: Signed Computer Systems Design Analyst: Ale Alfaro RN (Registered Nurse) Spoke with EVE Carbone at [facility]--requested they fax MAR to us today. They [...] Op Note by Sy Fierro MD at 05/05/14 09 Author: Sy Fierro MD Service: Plastic Surgery Author Type: Physician Filed: 05/05/14 5673 Date of Service: 05/05/14911 Status: Signed Computer Systems Design Analyst: Sy Fierro MD (Physician) Related Notes: Original Note by Sy Fierro MD (Physician) filed at 05/05/14 0913 [facility] OPERATIVE NOTE PLASTIC SURGERY DEPT Name: Kevyn [...] Fierro MD has created this entry using [employer] Voice Recognition software and [employer] macros. The entry has been reviewed and there may still exist sound alike word err ors. documented in thi s encounter Plan of Treatment +--------+---------+ + + + | Date | Type | Specialty | Care Team | Description | +--------+---------+ + + + | 09/10/ | Office | Geriatric Medicine | Mireya Pack, | | | 2019 | Visit | | LOCK OPERATOR [address] | | | | | | [address] [place], | | | | | | [place] [address] | | | | | | [phone] | | | | | | | | +--------+---------+ + + + | 09/29/ | Office | Urology | Mireya Pack, | | | 2019 | Visit | | LOCK OPERATOR [address] | | | | | | [address] [place], | | | | | | [place] [address] | | | | | | [phone] | | | | | | | | | | | | Toy Wild, DO | | | | | | [address] | | | | | | [place] [address] | | | | | | [phone] | | | | | | | [...] | | | Fingerstick | performed at [facility] [place] | | LAB | | | | Breanna Jenkins;[place] | | | | | | [address] | | | | + + + [...] | | | Fingerstick | performed at [facility] [place] | | LAB | | | | Breanna Jenkins;[place] | | | | | | [address] | | | | + + + [...] CELL Ca Lt. ARM SPECIMEN SOURCE: A. BASAL | EXTERNAL LAB | | CELL Ca [...] received in cassette | | | (FSA1). FROZEN SECTION DIAGNOSIS: DATE AND TIME: | | | 05/05/2014 at 0907 am REPORTED TO: Dr. Fierro | | | REPORTED BY: Dr. Morfin FROZEN DIAG: (FSA1) Margins | | | clear. (AMB) PERFORMING LABORATORY: Professional interpretation | | | and technical preparation was performed by [employer] [facility] | | | [address] [address] | | | (Profiling Machine Setup Operator: Jose Pierre M.D.; IA#: [id number]). | | | Diagnostician: Jose Pierre MD [...]
--- OUTSIDE RECORDS SUMMARY | ~2019-09-09 | XMS | Encounter Summary ---
Demographics + + + | Address | [address] | | | [place] [address] | + + + | Home Phone | | + + + | Preferred Language | Unknown | + + + | Marital Status | | + + + | Pentecostalism Affiliation | 1027 | + + + | Race | Unknown | + + + | Ethnic Group | Unknown | + + + Author + + + | Author | [facility] | | | and [place] | + + + | Organization | [facility] | | | and [place] | + + + | Address | Unknown | + + + | Phone | Unavailable | + + + Support + + + + + | Name | Relationship | Address | Phone | + + + + + | Sammi Kohler | ECON | [place] [address] | | + + + + + Care Team Providers + +------+ + | Care Workforce Development Program Director Name | Role | Phone | + +------+ + | Mik Diego DO | PCP | | + +------+ + Encounter Details +--------+ + + + + | Date | Type | Department | Care Team | Description | +--------+ + + + + | 08/25/ | Orders Only | [facility] | Conversion | | | 2015 | | CENTER | Transaction, | | | | | ANTICOAGULATION | Provider Unknown | | | | | [facility] | | | | | | [address] | (Fax) | | | | | [place], [place] | | | | | | [address] | | | | | | [phone] | | | +--------+ + + + [...] documented as of this encounter Progress Notes Jaelyn Chiang ARNP - 08/25/2014 2:12 PM PDTFormatting of this note might be different f rom the original. Progress Notes by CITLALY Romo at 08/25/141411 Author: CITLALY Romo Service: (none) Author Type: Advanced Registered Nurse Zaina ctitioner Filed: 08/25/14 1413 Encounter Date: 08/25/2014 Status: Signed Measuring Clerk: CITLALY Romo (Advanced Registered Nurse Practitioner) S- Maintenance visit. INR check and warfarin dosing. Pt dosed warfarin as directed. No medication changes reported. No illnesses or ER visits. No increased bruising or bleeding. O- INR 1.7 A- Sub Therapeutic INR P- Will increase the dosage by 8%. Recheck INR in 2 weeks. Faxed dosing sheet to EVE resendez documented in this encounter Plan of Treatment +--------+---------+ + + + | Date | Type | Specialty | Care Team | Description | +--------+---------+ + + + | 09/10/ | Office | Geriatric Medicine | Mireya Pack, | | | 2019 | Visit | | LUBRICATING ENGINEER [address] | | | | | | [address] [place], | | | | | | [place] [address] | | | | | | [phone] | | | | | | | | +--------+---------+ + + + | 09/29/ | Office | Urology | Mireya Pack, | | | 2020 | Visit | | LUBRICATING ENGINEER [address] | | | | | | [address] [place], | | | | | | [place] [address] | | | | | | [phone] | | | | | | | | | | | | Toy Wild, DO | | | | | | [address] | | | | | | [place] [address] | | | | | | [phone] | | | | | | | | +--------+---------+ + + + documented as of this encounter Procedures + +--------+ + + + | Procedure Name | Priori | Date/Time | Associated Diagnosis | Comments | | | ty | | | | + +--------+ + + + | POC INR | Routin | 08/25/2014 | | Results for this | | | e | 12:00 AM | | procedure are in the | | | | PDT | | results section. | + +--------+ + + + documented in this encounter Results POC INR (08/25/2014 12:00 AM PDT) + +-------+ + + + | Component | Value | Ref Range | Performed | Pathologist | | | | | At | Signature | + +-------+ + + + | INR | 1.7 | | EXTERNAL | | | | [...]
--- OUTSIDE RECORDS SUMMARY | ~2019-09-09 | XMS | Encounter Summary ---
Demographics + + + | Address | [address] | | | [place] [address] | + + + | Home Phone [...] Sammi Kohler | ECON | [place] [address] | | + + + + + Care Team Providers + +------+ + | Care Lactation Nurse Name | Role | Phone | + +------+ + | Mireya Pack NP | PCP | | + +------+ + Reason for Visit + +--------+ + | Reason | Onset | Comments | | | Date | | + +--------+ + | TCM - Hosp FU | 07/07/ | | | | 2020 | | + +--------+ + Encounter Details +--------+ + + + + | Date | Type | Department | Care Team | Description | +--------+ + + + + | 07/07/ | Telephone | [facility] | Sanjuanita Rodriguez RN | TCM - Hosp FU | | 2019 | | DBA MANAGER | | | | | | MA[address] | | | | | | [address] | | | | | | [place] | | | | | | [address] | | | | | | [phone] | | | +--------+ + + + [...] this encounter Miscellaneous Notes Telephone Encounter - Joy Connor, Customs Investigator - 07/31/2019 11:20 AM PDTColette t received BP wrist cuff this date, is following up with PCP today. elephone Encounter - Joy Connor Medical Assistant - 07/23/2019 11:59 AM PDTContacted patient. [facility] has contacted and will follow up again this week with him Advised patient had found BP wrist cuff, would contact him tomorrow to retrieve it. Encour aged patient to reach out if needing help with BP cuff. elephone Encounter - Joy Connor Medical Assistant - 07/12/2019 12:03 PM PDTMarisela from [facility] called back, states patient h as a child welfare caseworker with them, it is Elizabeth, her number is [phone]. She states she is familiar with patient, he use to call often but feels his medications wer e adjusted so he is doing better and calls have reduced. States Elizabeth will reach out to patient. Will follow up with patient next week. elephone Encounter - Joy Connor Medical Assista nt - 07/10/2019 12:52 PM PDTUnfortunately BP cuff does not read correctly. Will keep brenda kirby Contacted patient, advised him of [facility] referral, he agreed for a referral, he is concerned that a Computer Forensics Analyst will cost him, stated on fax that patient has concerns with cost, told h im they would be in touch needing him to complete information. Will follow up next week on referral. LUNA w/ Joelle/[facility] to clarify cost concern. Patient was thankful for the assistance. elephone Encounter - Joy Connor Medical Assis tant - 07/09/2019 1:38 PM PDTContacted patient. Patient states PCP requested follow up via telephone tomorrow. Patient states a nurse comes to his home once a week, does take his BP at this time. Patient rewprots physical therapy ended as of last week. Patient states his caregiver is Shannon, she works for [employer], ph# [phone]. She comes in 3x week, from 9-1030. States Shannon does a good job and he would like her to continue being his caregiver. Patient does not want assisted living. Patient is agreeable to a child welfare caseworker, states he tried to get one previously but was unabl e to. He needs assistance with signing up for insurance. Contacted Sarah at [employer], she states they only provide in home care, they do not have case management specialist, they do work with [facility] so Shannon could continue as caregiver. Will place referral for [employer]. Did get a BP cuff, unsure of readings. Will test a few times and decide if to forward to [facility]. el glenna Izaguirre - Sanjuanita Rodriguez RN - 07/08/2019 1:30 PM PDT SITUATION Transitional Care Management for follow-up on discharge from: Inpatient Acute Hospital Eligible for TCM Billing LOS [id number]? yes - Eligible for TCM billing through 07.18.2019 Patient questions/concerns needing provider review: None at this time BACKGROUND Admission Date: 07/06/19 Discharge Date: 07/06/19 Discharge Disposition: Home or Self Care Principle Discharge Diagnosis: sepsis ASSESSMENT General: How are you doing since you returned home?: Patient states, "Okay" Did you receive discharge instructions? No, patient left AMA Do you have any questions about the instructions? no Does patient have advanced directive? No Patient Reported Review of Symptoms: (documentation by exception) other could not get patie nt to answer questions regarding his condition. He did report to me that he had 1 episode of diarrhea since discharge and that he took something for it. Could not tell me what he took. Says he will talk to his doctor at his appointment on Monday. Diet: Diet restrictions: None per patient Difficulties managing your dietary restrictions? no Medication Literacy: Were you able to plastics fabrication supervisor your medications after discharge? No: But states he got them after he went to the Emergency Department. Patient had no After Visit Summary printed on discharg e as he left AMA. Reviewed all medications/supplements and any changes? No: Patient refuses states they are a ll in the computer. Do you manage your own medications? No - Who helps you? They are bubble wrapped by Rx Pharm acy for patient. Patient understands the purpose of the medications: Unable to determine, patient will not d iscuss with me. Patient understands when to take the medications: Yes What questions do you have questions regarding your medications? None Medication Management Interventions: Reviewed allergies with patient.Unable to do more. Patient was advised to please bring in all medications to the visit: yes, patient refuses s tates "It is all in the computer", I explained that sometimes mistakes are made and we want to make sure our list is accurate, he states "I only have the one doctor, it is right". Discharge needs: Unable to address with patient before he ended the call. Receives help from: home care agency. States that he has caregivers come into his home 3 da ys/week, Monday, Monday, and Monday to assist with cooking, cleaning house, and to remind him to take his pills. Will send to Domingo Connor MA for follow up to see if patient has a [employer] e worker or someone who manages his care. Possible for referral to [facility]. RECOMMENDATION Disposition: Appears safe to remain in home setting at this time. Future Appointments Date Time Provider Department Center 07/10/2019 3:00 PM [facility] [place] Access to Technology for Zoom Virtual Visit: Does the patient have access to technology? None Does the patients device have internet access via wifi or adequate cellular data plan?: no Does facility patient resides in have access to technology?: NA Any other Specialists, Out-patient Therapy or Diagnostics/Labs: Unknown Patient Education: Patient ended call prior to my be able to address this Triage protocol used?: no Call Back Instructions: Will evaluate after appointment with pcp for follow up needs. Unable to provide my contact information to patient, I had however provided it to him after a previous discharge. Informant verbalized understanding. No learning barriers noted. documented in this enc ounter Plan of Treatment +--------+---------+ + + + | Date | Type | Specialty | Care Team | Description | +--------+---------+ + + + | 09/10/ | Office | Geriatric Medicine | Mireya Pack, | | | 2019 | Visit | | HIGHWAY PATROL COMMANDER [address] | | | | | | [address] [place], | | | | | | [place] [address] | | | | | | [phone] | | | | | | | | +--------+---------+ + + + | 09/29/ | Office | Urology | Mireya Pack, | | | 2019 | Visit | | [address] PATR[address] COMMANDER [address] | | | | | | [facility] [address] [place] | | | | | | [place] [address] | | | | | | [phone] | | | | | | | | | | | | Toy Wild, DO | | | | | | [address] | | | | | | [place] [address] | | | | | | [phone] | | | | | | | [...] + + + + | Rule out CSalty | 07/15/2019 | 07/15/2019 | 07/16/2019 3:56 AM | | Difficile | | | PDT | + + + + + documented as of this encounter
--- OUTSIDE RECORDS SUMMARY | ~2019-09-09 | XMS | Encounter Summary ---
Demographics + + + | Address | [address] | | | [place] [address] | + + + | Home Phone | | + + + | Preferred Language | Unknown | + + + | Marital Status | | + + + | Sikh Affiliation | 1027 | + + + [...] + | Sammi Kohler | ECON | [place] [address] | | + + + + + Care Team Providers + +------+ + | Care Emergency Response Officer Name | Role | Phone | + +------+ + PCP | Unavailable | + +------+ + Encounter Details +--------+ + + + + | Date | Type | Department | Care Team | Description | +--------+ + + + + | 12/24/ | Emergency | [facility] | Irvin Little | Contusion of right | | 2015 | | [facility] | DO [address] | knee, initial | | | | EMER[facility]ENTER | [address] | encounter | | | | [address] | [place], [place] | | | | | [place], [place] | [address] | | | | | [address] | [phone] | | | | | [phone] | | | +--------+ + + + [...] documented as of this encounter ED Notes Irvin Little DO - 12/24/2014 1:30 AM PSTFormatting of this note might be di fferent from the original. ED Provider Notes by Irvin Little DO at 12/24/14129 Author: Irvin Little DO Service: Emergency Department Author Type: Physician Filed: 12/24/14 3513 Date of Service: 12/24/14129 Status: Signed Hydrator Operator: Irvin Little DO (Physician) Procedures Additional Documentation Procedures [facility] Department of Emergency Medicine 3:57 PM History of Present Illness Patient Identification Norah Gr is a 59 y.o. male. Patient information was obtained from patient. History/Exam limitations: none. Patient presented to the Emergency Department by: Car Chief Complaint Chief Complaint Patient presents with Knee Pain fell monday, came in for ct scan, stitches, R knee still hurts 59-year-old male complains of right knee pain, the patient fell and struck his knee several days ago. The patient denies any other issues, the patient was seen for other traumatic inj uries from the fall several days ago. 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 Past Surgical History Procedure Laterality Date Unlisted procedure arthroscopy Knee surgery rt knee, patella Leg surgery LLE Colonoscopy Cholecystectomy, laparoscopic 09/12/2012 Procedure: LAPAROSCOPIC - CHOLECYSTECTOMY; Surgeon: Jevon Vargas DO; Location: [facility] MAIN OR; Service: General; 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; Abdominal surgery Cholecystectomy Skin cancer excision 10/10/2012 Procedure: EXCISION - SKIN CANCER; Surgeon: Sy Fierro MD; Location: [facility] ; Service: Plastics; Laterality: Left; upper arm and upper back w/frozen section Esophagogastroduodenoscopy 03/03/2013 Procedure: ESOPHAGOGASTRODUODENOSCOPY; Surgeon: Howie Gibson MD; Location: [facility] ENDOSCOPY; S ervice: Gastroenterology; 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; Colonoscopy 03/04/2013 Procedure: COLONOSCOPY; Surgeon: Howie Gibson MD; Location: [facility] ENDOSCOPY; Service: Gastroe nterology; 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; Upper gastrointestinal endoscopy Skin biopsy Hernia repair 07/03/2013 Procedure: LAPAROSCOPIC - HERNIA - INCISIONAL; Surgeon: Jevon Vargas DO; Location: [facility]; Service: General; 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; Skin lesion excision Left 05/05/2014 Procedure: EXCISION - LESION - FROZEN SECTION; Surgeon: Sy Fierro MD; Location: [facility]; Service: Plastics; Laterality: Left; forearm Prior to Admission medications Medication Sig Start Date End Date Taking? Authorizing Provider acetaminophen (TYLENOL) 500 MG tablet Take 2 tablets by mouth every 6 (six) hours as needed for Pain or Fever. Do not take more than 8 in a 24 hour period 12/21/14 12/31/14 Jose avery MD Albuterol Sulfate (VENTOLIN HFA IN) Inhale 2 puffs into the lungs as needed. 108 mcg/act Historical Provider Xvnyx-P-Xudqtutgjuntu (BEANO) TABS Take 150 Units by mouth 3 (three) times daily as needed (As needed for gas). Historical Provider amLODIPine (NORVASC) 10 MG tablet Take 1 tablet by mouth daily. 12/03/13 Augustine Niles ramírez MD antipyrine-benzocaine (AURALGAN) otic solution Place [...] mg at hs 05/07/14 Lorna Looney MD famotidine (PEPCID) 20 MG tablet Take 1 tablet by mouth 2 (two) times daily. 12/04/1412/03 Breanne Hurtado DO fenofibrate (TRIGLIDE) 160 MG tablet Take 160 mg by mouth daily. Historical Provider fluconazole (DIFLUCAN) 150 MG tablet Take 1 pill once a week for 4 weeks in a row. 10/14/14 TERRY Agosto fluticasone (FLONASE) 50 MCG/ACT nasal 1 spray by Nasal route 2 (two) times daily as needed for Rhinitis (for sinus pressure). 09/27/14 09/27/15 Elmo Thorne DO furosemide (LASIX) 20 MG tablet Take 1 [...] 100 mg by mouth nightly. Historical Provider izzjiqhxp-vukfqkgb-qorjesolj hydroxide-simethicone Take 40 mLs by mouth daily [...] tablet Take 1 tablet by mouth daily. 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 2 falls in the last 6 months. Family History Problem Relation Age of Onset Heart disease Father Heart disease Sister Diabetes type II Sister Heart Problems Brother Review of Systems Review of Systems Musculoskeletal: Positive for joint pain and falls. All other systems reviewed and are negative. Physical Exam BP 195/88 mmHg | Pulse 86 | Temp(Src) 97.3 F (36.3 C) (Oral) | Resp 16 | Wt 104.7 kg (2 30 lb 13.2 oz) | SpO2 94% Pulse Oximetry interpretation: Normal Physical Exam Constitutional: He appears well-developed. No distress. HENT: Head: Normocephalic. Eyes: Pupils are equal, round, and reactive to light. Musculoskeletal: He exhibits tenderness. Right hip: He exhibits normal range of motion and no tenderness. Right knee: He exhibits swelling. He exhibits no deformity. Tenderness found. Right ankle: He exhibits normal range of motion. No tenderness. Neurological: He is alert. Skin: Skin is warm. Medical Decision Making and Emergency Department Course Radiology Imaging Results X-ray knee limited right (Final result) Result time: 12/24/14 09:24:01 Procedure changed from XR Knee Right 3 View Final result by Rad Results In Richard (12/24/14 09:24:01) Impression: 1. Moderate anterior prepatellar soft tissue swelling. 2. No other acute findings. 3. Prior orthopedic fixation of the proximal RIGHT tibia, with good healing and remodeling of the tibia. Narrative: [facility] XR KNEE LIMITED RIGHT 12/24/2014 1:24 AM History: 59 years. Male. RIGHT knee pain. Technique: AP and lateral recumbent views. Comparison exam: None. Findings: Soft tissue swelling is visualized over the anterior aspect of the patella, sugg esting possible contusion. The patella is intact. The distal femur is negative for fracture. Joint spaces are normal throughout the RIGHT kn ee. Prior screw and plate fixation of the proximal RIGHT tibial metaphysis and diaphysis is not ed, with good healing and remodeling of the tibia. The proximal fibula is intact. No visible joint effusion. Minimal vascular calcification is noted posteriorly. ED Interpretation Documented by Irvin Little DO (12/24/14 01:35:20, [facility] Emergency Department, Emergency Medicine) No acute fracture, hardware is intact ED Diagnosis Final diagnosis Contusion of right knee, initial encounter ED Department Course No acute fracture seen on the x-ray, advised follow-up with orthopedics. Patient understand s and agrees and will return for any worsening Disposition: ED Disposition Discharge Condition at discharge: Good Follow-up Information Follow up With Details Comments Contact Info Yuri Ramos DO [address] [facility] [phone] Discharge Medications: Discharge Medication List as of 12/24/2014 1:[address] Irvin Little, D.O. Dictation software, [employer], used which may contain error for similar sounding words even af ter review. Personal communication requested for any clarification. Irvin Little DO 12/24/14 1557 documentchad d in this encounter Plan of Treatment +--------+---------+ + + + | Date | Type | Specialty | Care Team | Description | +--------+---------+ + + + | 09/10/ | Office | Geriatric Medicine | Mireya Pack, | | | 2019 | Visit | | [employer] [address] | | | | | | [address] [place], | | | | | | [place] [address] | | | | | | [phone] | | | | | | | | +--------+---------+ + + + | 09/29/ | Office | Urology | Mireya Pack, | | | 2019 | Visit | | [employer] [address] | | | | | | [address] [place], | | | | | | [place] [address] | | | | | | [phone] | | | | | | | | | | | | Toy Wild, DO | | | | | | [address] | | | | | | [place] [address] | | | | | | [phone] | | | | | | | | +--------+---------+ + + + documented as of this encounter Procedures + +--------+ + + + | Procedure Name | Priori | Date/Time | Associated Diagnosis | Comments | | | ty | | | | + +--------+ + + + | XR KNEE RIGHT 1 - 2 | Routin | 12/24/2014 | | Results for this | | VW | e | 1:24 AM | | procedure are in the | | | | PST | | results section. | + +--------+ + + + documented in this encounter Results XR Knee Right 1 - 2 Vw (12/24/2014 1:24 AM PST) + + | Specimen | + + | | + + + + + | Impressions | Performed At | + + + | 1. Moderate anterior prepatellar soft tissue swelling. 2. No | | | other acute findings. 3. Prior orthopedic fixation of the proximal | | | RIGHT tibia, with good healing and remodeling of the tibia. | | | | | + + + + + + | Narrative | Performed At | + + + | [facility] XR KNEE LIMITED RIGHT 12/24/2014 1:24 AM | | | History: 59 years. Male. RIGHT knee pain. Technique: AP | | | and lateral recumbent views. Comparison exam: None. | | | Findings: Soft tissue swelling is visualized over the anterior | | | aspect of the patella, suggesting possible contusion. The patella is | | | intact. The distal femur is negative for fracture. Joint spaces | | | are normal throughout the RIGHT knee. Prior screw and plate | | | fixation of the proximal RIGHT tibial metaphysis and diaphysis is | | | noted, with good healing and remodeling of the tibia. The proximal | | | fibula is intact. No visible joint effusion. Minimal vascular | | | calcification is noted posteriorly. | | + + + + + | Procedure Note | + + | Joaquin Ramos Conversion - 09/20/2018 10:29 PM PDT [facility] GRXR KNEE LIMITED | | RIGHT12/24/2014 1:24 AM History: 59 years. Male. RIGHT knee pain. Technique: AP and | | lateral recumbent views. Comparison exam: None. Findings: Soft tissue swelling is | | visualized over the anterior aspect of the patella, suggesting possible contusion. The | | patella is intact. The distal femur is negative for fracture. Joint spaces are normal | | throughout the RIGHT knee. Prior screw and plate fixation of the proximal RIGHT tibial | | metaphysis and diaphysis is noted, with good healing and remodeling of the tibia. The | | proximal fibula is intact. No visible joint effusion. Minimal vascular calcification is | | noted posteriorly. IMPRESSION: 1. Moderate anterior prepatellar soft tissue | | swelling.2. No other acute findings.3. Prior orthopedic fixation of the proximal RIGHT | | tibia, with good healing and remodeling of the tibia. | |The distal femur is negative for fracture. Joint spaces are normal throughout the RIGHT kn ee. | | | |Prior screw and plate fixation of the proximal RIGHT tibial metaphysis and diaphysis is not ed, with good healing and remodeling of the tibia. The proximal fibula is intact. | | | |No visible joint effusion. Minimal vascular calcification is noted posteriorly. | | | |IMPRESSION: | |1. Moderate anterior prepatellar soft tissue swelling. | |2. No other acute findings. | |3. Prior orthopedic fixation of the proximal RIGHT tibia, with good healing and remodeling of the tibia. | | | | | + + documented in this encounter Visit Diagnoses + + | Diagnosis | + + | Contusion of right knee, initial encounter | + + documented in this encounter"
--- OUTSIDE RECORDS SUMMARY | ~2019-09-09 | XMS | Encounter Summary ---
Demographics + + + | Address | [address] | | | [place] [address] | + + + | Home Phone | | + + + | Preferred Language | Unknown | + + + | Marital Status | | + + + | Methodist Affiliation | 1027 | + + + | Race | Unknown | + + + | Ethnic Group | Unknown | + + + Author + + + | Author | [facility] | | | and [place] | + + + | Organization | [facility] | | | and [place] | + + + | Address | Unknown | + + + | Phone | Unavailable | + + + Support + + + + + | Name | Relationship | Address | Phone | + + + + + | Sammi Kohler | ECON | [place] [address] | | + + + + + Care Team Providers + +------+ + | Care Pilot Supervisor Name | Role | Phone | + +------+ + PCP | Unavailable | + +------+ + Encounter Details +--------+ + + + + | Date | Type | Department | Care Team | Description | +--------+ + + + + | 10/05/ | Emergency | [facility] | Chisholm, Kirill W, | Closed head injury, | | 2013 - | | [facility] | MD [address] | initial encounter; | | | | EMERGENCY CENTER | [place] [address] | Cervical strain, | | 10/06/ | | [address] | [phone] | initial encounter; | | 2013 | | [place], [place] | | Thoracic myofascial | | | | [address] | | strain, initial | | | | [phone] | | encounter; Fall, | | | | | | initial encounter | +--------+ + + + + Social [...] documented as of this encounter Progress Notes Kenrick Transluis f, Provider Unknown - 10/06/2013 6:38 PM PDTFormatting of this note m ight be different from the original. Case Management by QUINN Tyson at 10/06/131837 Author: QUINN Tyson Service: (none) Author Type: (none) Filed: 10/06/131838 Date of Service: 10/06/131837 Status: Signed Supervisor [employer]: QUINN Tyson (Building Mechanic) CM called patient back, patient confirmed he still resides at [facility], and that he has lear ronald to use Dial a Ride. He still sees Dr. Gutiérrez but says that it will take 3 weeks for an appt. CM presented urgent care options to patient. Patient said the he has not yet mad e an appointment at [facility], CM encouraged OP follow up as patient indicated that he is not sure his anxiety medications are "working." onver ivana Transaction, Provider Unknown - 10/06/2013 12:19 PM PDT Case Management by QUINN Tyson at 10/06/139 Author: QUINN Tyson Service: (none) Author Type: (none) Filed: 10/06/13 1220 Date of Service: 10/06/131218 Status: Signed Supervisor [employer]: QUINN Tyson (Building Mechanic) LARA unable to see patient when he was in ED yesterday, patient is in the [facility]. LARA ayala alled patient at [phone]. Patient answered the phone but requested that CM call him back l ater today. CM will attempt follow up. onver ivana Rodríguezaction, Provider Unknown - 10/06/2013 12:16 PM PDT Case Management by QUINN Tyson at 10/06/13 1216 Author: QUINN Tyson Service: (none) Author Type: (none) Filed: 10/06/139 Date of Service: 10/06/131215 Status: Signed Supervisor [employer]: QUINN Tyson (Building Mechanic) COLTON alert rec'd for this patient, 26 ED visits < 12 months. [facility] guidelines are a s follows: Care Recommendation: Norah has a printed Crisis Plan at the Assisted Living Facility that he is to follow before coming to the ED for non life-threatening issues. Please discuss with Norah when he present s to the ED The following guidelines were formulated by the ED Care Guidelines Committee of the [facility] Consistent Care Program on May 21, 2013. No controlled substances should be administered in the ED or prescribed from the ED for sub jective pain. Past Medical & Surgical History: Primary Care Provider (PCP) is Dr. Gutiérrez at . Notify PCP if giving any a dditional narcotics for objective findings. [facility] Medical History: 1. Diabetes-He is on a sliding scale after meals, routine insulin before meals and takes La ntus at night. A1C April, = 7.9%. He was referred to an funeral home makeup artist in February, 4. 2. COPD- He take symbicort, Spiriva and albuterol. 3. Hypertension- Patient feels that this is related to his anxiety. 4. Obstructive Sleep apnea- He is non-compliant with his CPAP 5. History of ARF- He has been referred to Dr. Lyons for nephrology. 6. Atrial Fibrillation-He is no longer on Plavix-taking asa. 7. Developmental delay 8. GI Bleed- EGD in February, shows 1.2 cm nodule at the GE junction (requiring managem ent in [place] at ), rectal ulcer and internal hemorrhoids. 9. Hernia- He has been referred to Dr. Vargas. Problem List: He needs to make regular visits to see his PCP in light of his chronic conditions. He estab lished in February, but he never returned as requested. This patient is developmentally delayed and has multiple chronic conditions and providers. He would benefit from having a Sales Lead assist him in coordinating his care. History of Behavioral Health Conditions: He has depression and anxiety- This is managed by his PCP. He takes Paxil and abilify. He has been referred to [facility] in February. According to [facility], he never establish ed care. Please follow-up with him and assist him in making another appointment to establish care. Pain/Opioid Agreement: Norah has an order at the Assisted Living Facility for hydrocodone as needed. He does not h ave a diagnosis of chronic pain. Please see CODING TECH for prescribing history. Social History or Identified Risk: - Fall Risk - Non adherence - Transportation Issues Social History: Norah lives at [facility] . He may require another level of care given the number of ED visits at enrollment (22 in the last year)-please contact his [facility] Ca se Hat Binder (Fermin Preston) to discuss. Norah is developmentally delayed- Patient may benefit from having someone with him at his d octor's appointments. He has applied for Dial-A-Ride services (April,) Applied for a Health Home for this client through [facility]- please review Provider One to determ ine if one has been assigned. Additional Information: This patient is case managed by the [facility]. Please contact the rail loader at your hospital for any immediate or post ED discharge needs this patient may have. You may also contact for additional information These are guidelines and the provider should exercise clinical judgment when providing care . Last Modified by Ema Laura on June 13, 2013 Created by Ema Laura on May 24, 2013 docume nted in this encounter ED Notes Conversion Transaction, Provider Unknown - 10/05/2013 10:57 PM PDTFormatting of this note m ight be different from the original. ED Notes by Jenn Moralez RN at 10/05/132256 Author: Jenn Moralez RN Service: (none) Author Type: Registered Nurse Filed: 10/05/132256 Date of Service: 10/05/132256 Status: Signed Supervisor [employer]: Jenn Moralez RN (Registered Nurse) Bed: 1107 Expected date: Expected time: Means of arrival: Comments: Kirill Teixeira MD - 10/05/2013 10:53 PM PDT ED Provider Notes by Kirill Hardy MD at 10/05/13 4776 Author: Kirill Hardy MD Service: (none) Author Type: Physician Filed: 10/06/13 1620 Date of Service: 10/05/132252 Status: Signed Supervisor [employer]: Kirill Hardy MD (Physician) [facility] Department of Emergency Medicine History of Present Illness Patient Identification Norah Gr is a 57 y.o. male. Patient information was obtained from patient. History/Exam limitations: none. Patient presented to the Emergency Department [place] [address] Room:[facility] TOI/TOI Chief Complaint Chief Complaint Patient presents with Fall EMS report pt fell out of bed and hit head on door jam, No LOC. No whaving pain behind ri ght ear The patient presents to ED with complaints of head pain secondary to fall. Pt reportedly ro lled and fell out of bed and hit the R side of his head on a door. Pt states he is experienc ing slight pain to his neck and some pain to his upper back. Pt is also c/o R upper arm pain , "fuzzy" vision after hitting his head, and nausea. Pt denies fever, vomiting, and speech c hanges at this time. He is rating his current pain a 10/10. Per EMS, facility thought his speech might have been slurred more than normal it seems afte r hitting his head. He does have chronic speech problems per patient. Primary Care Doctor: JERRELL GUTIÉRREZ Past Medical History Diagnosis Date Diabetes mellitus type II Atrial fibrillation Hypertension Hyperlipidemia Anxiety Depression Renal failure ARF (acute renal failure) 03/02/2013 COPD (chronic obstructive pulmonary disease) 03/02/2013 Development delay Basal cell carcinoma 09/26/2012 arm and back Unspecified visual disturbance reading glasses WARD (obstructive sleep apnea) 08/11/2012 does not use CPAP because of the noise GIB (gastrointestinal bleeding) 03/02/[address] Nur, rectal ulcers, nodule of GE junction Hypercholesterolemia 07/08/2013 Obesity, Class I, BMI 30-34.9 07/08/2013 Facial droop 07/08/2013 Past Surgical History Procedure Laterality Date Unlisted procedure arthroscopy Knee surgery rt knee, patella Leg surgery LLE Colonoscopy Cholecystectomy, laparoscopic 09/12/2012 Procedure: LAPAROSCOPIC - CHOLECYSTECTOMY; Surgeon: Jevon Vargas DO; Location: [facility] MAIN OR; Service: General; 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; Abdominal surgery Cholecystectomy Skin cancer excision 10/10/2012 Procedure: EXCISION - SKIN CANCER; Surgeon: Sy Fierro MD; Location: [facility] MAIN OR ; Service: Plastics; Laterality: Left; upper arm and upper back w/frozen section Esophagogastroduodenoscopy 03/03/2013 Procedure: ESOPHAGOGASTRODUODENOSCOPY; Surgeon: Howie Gibson MD; Location: [facility] ENDOSCOPY; S ervice: Gastroenterology; 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; Colonoscopy 03/04/2013 Procedure: COLONOSCOPY; Surgeon: Howie Gibson MD; Location: [facility] ENDOSCOPY; Service: Gastroe nterology; 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; Upper gastrointestinal endoscopy Skin biopsy Hernia repair 07/03/2013 Procedure: LAPAROSCOPIC - HERNIA - INCISIONAL; Surgeon: Jevon Vargas DO; Location: [facility] MAIN OR; Service: General; 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; Prior to Admission medications Medication Sig Start Date End Date Taking? Authorizing Provider Albuterol Sulfate (VENTOLIN HFA IN) Inhale 2 puffs into the lungs as needed. Yes Historic al Provider amLODIPine (NORVASC) 2.5 MG tablet Take 2.5 mg by mouth as needed. Take 1 tab when systolic BP above 150. Recheck BP in 2 hours and if systolic BP is still above 150, take a second pi ll. (Max of 2 a day) Yes Historical Provider ARIPiprazole (ABILIFY) 10 MG tablet [...] times daily. 03/05/13 Yes Scott Martínez MD diltiazem (DILACOR XR) 180 MG 24 hr capsule Take 180 mg by mouth daily. Yes Historical Pr ovider docusate sodium (COLACE) 100 MG capsule Take 100 mg by mouth nightly. Yes Historical Prov ider fenofibrate (TRIGLIDE) 160 MG tablet Take 160 mg by mouth daily. Yes Historical Provider HYDROcodone-acetaminophen (NORCO) 5-325 MG per tablet Take 1 tablet by mouth every 6 (six) hours as needed. Yes Historical Provider insulin glargine (LANTUS) 100 UNIT/ML injection Inject 67 Units into the skin nightly. Ye s Historical Provider jcbquamhc-kfsuwsgq-tyqncxxdo hydroxide-simethicone Take 40 mLs by mouth daily as needed. Yes Historical Provider lisinopril (ZESTRIL) 40 MG tablet Take 40 mg by mouth every evening. 03/05/13 03/05/14 Yes Reynold Martínez MD loperamide (IMODIUM) 2 MG capsule Take 2 mg by mouth as needed. 4 mg after first loose stoo l, then 2 mg after each further loose stool Not to exceed 8 mg per day. Yes Historical Provider LORazepam (ATIVAN) 1 MG tablet Take 1 mg by mouth every 6 (six) hours as needed. Yes Hist orical Provider meclizine (ANTIVERT) 25 MG tablet Take 25 mg by mouth 3 (three) times daily as needed. Kalpana cations: Sensation of Spinning or Whirling Yes Historical Provider Mometasone Furo-Formoterol Fum (DULERA) 100-5 MCG/ACT AERO Inhale 1-2 puffs into the lungs. Yes Historical Provider nitroGLYCERIN (NITROSTAT) 0.[address] 0.4 mg under the tongue every 5 (five) min utes as needed. Yes Historical Provider NOVOLOG 100 UNIT/ML injection INJ 3U SUB-Q TID(AC) AND INJECT SUBCUTANEOUSLY PER SLIDING SC SUSAN 1-70= 2U, 71-100=3U, 101-120= 4U, 121-150=5U, 151-180=6U, 181-210= 7U, 211- 04/23/13 Yes Bang Yeh MD omeprazole (PRILOSEC) 20 MG capsule Take 1 capsule by mouth 2 (two) times daily. 05/27/13 Yes Augustine Agosto MD ondansetron (ZOFRAN-ODT) 4 MG disintegrating tablet Take 4 mg by mouth every 3 (three) hour s as needed. Yes Historical Provider paroxetine (PAXIL) 40 MG tablet Take 40 mg by mouth every morning. Yes Historical Provide r polyethylene glycol (GLYCOLAX) powder DISSOLVE 17GM IN LIQUID AND DRINK BY MOUTH EVERY DAY 04/23/13 Yes Bang Yeh MD pravastatin (PRAVACHOL) 20 MG tablet Take 20 mg by mouth nightly. Yes Historical Provider tiotropium (SPIRIVA) 18 MCG inhalation capsule Inhale 18 mcg into the lungs daily. Yes Hi storical Provider Allergies Allergen Reactions Vitamin B12 Rash History Social History Marital Status: Spouse Name: N/A Number of Children: 1 Years of Education: N/A Occupational History Not on file. Social History Main Topics Smoking status: Never Smoker Smokeless tobacco: Never Used Alcohol Use: 0.0 oz/week 1-2 Cans of beer per week Comment: once week Drug Use: No Sexually Active: Not Currently Other Topics Concern Not on file Social History Narrative Lives [place], [place], full code Family History Problem Relation Age of Onset Heart disease Father Heart disease Sister Diabetes type II Sister Review of Systems No fevers No chills No vomiting No hearing loss No difficulty swallowing No difficulty breathing No chest pain No abdominal pain No weakness No rash No difficulty with urination No difficulty with bowel movement Positive for head pain, slight neck pain and R arm pain secondary to fall Positive for vision changes blurry, no field deficit Positive for nausea Pt does not report other relevant complaints except as described in the HPI See HPI for further relevant details. All systems otherwise negative, except as recorded above and as recorded in the HPI. Physical Exam BP 178/97 | Pulse 77 | Temp(Src) 98.2 F (36.8 C) (Oral) | Resp 18 | Ht 1.803 m (5' 10.9 8") | Wt 105.688 kg (233 lb) | BMI 32.51 kg/m2 | SpO2 94% INTERPRETATION OF VITALS Hypertensive, otherwise normal Pulse Oximetry interpretation: Normal PHYSICAL EXAM Appearance: Alert. No acute distress. Head: Normal external exam Eyes: Normal inspection. ENT: Normal external ENT inspection. Neck: Supple. CVS: Normal heart rate and rhythm. Heart sounds normal. Pulse normal. Respiratory: No respiratory distress. Breath sounds normal. No rales or rhonchi. Abdomen: Soft and nontender. No rebound or guarding. Back: Moves without difficulty. Upper T-spine tenderness and C-spine tenderness. Skin: Skin warm. Extremities: No deformity. Tenderness behind the R ear Neuro: Oriented. Moves all extremities. Cranial Nerves 2-12 intact. Normal motor exam. Normal Sensory exam. Normal jlzjgh-xh-evy e and qeby-kt-khht exam. No pronator drift. No neglect. Medical Decision Making and Emergency Department Course ED Medical Decision Making: Pt apparently rolled out of bed and hit his head. He has no focal neurological deficits on exam but has some tenderness to the head and spine. Will CT head to rule out ICH and XR of ladonna huizar to rule out fracture. This was a low energy mechanism but will check basic labs to be c omplete. ED Department Course: Exams normal Labs reassuring Recheck on pt at 12:55: doing well, got him up and walked him around. He did well. He shoemaker s report a little bit of light headedness standing, will give some fluids. Visit Vitals Filed Vitals: 10/05/13 2255 10/05/13 2352 10/06/13 0100 BP: 178/97 169/84 203/88 Pulse: 77 72 68 Temp: 98.2 F (36.8 C) TempSrc: Oral Resp: 18 16 17 Height: 1.803 m (5' 10.98") Weight: 105.688 kg (233 lb) SpO2: 94% 96% 96% Records Reviewed Reviewed nursing triage notes available at time of initial pt encounter. Orders Placed Orders Placed This Encounter Procedures CT Head and C-Spine Non-Con X-ray thoracic spine 2 views Cardiac Panel ED Glucose bedside ISTAT Troponin Apply Cervical Collar POCT glucose saline lock IV Medications HYDROcodone-acetaminophen (NORCO) 5-325 MG per tablet 1 tablet (1 tablet Oral Given 10/06/13 005) Laboratory Evaluation Labs Reviewed [facility] CARD PANEL W/O TRP (ED ONLY) - Abnormal; Notable for the following: HGB 13.1 (*) HCT 38.0 (*) MCV 79.7 (*) GLUCOSE 233 (*) CALCIUM 8.2 (*) Albumin 3.2 (*) A/G 0.9 (*) APTT 22 (*) MMB 4.4 (*) All other components within normal limits POCT GLUCOSE - Abnormal; Notable for the following: GLUCOSE,POC SCREEN 246 (*) All other components within normal limits POC CARDIAC TROPONIN I have reviewed lab results from the emergency department workup and abnormal results have been posted to the chart. Pertinent positive and negative findings have been addressed appropriately. Radiology and EKG Evaluation Imaging Results CT Head and C-Spine Non-Con (Final result) Result time: 10/06/13 00:15:50 Preliminary result by Rad Results In Richard (10/06/13 00:15:50) Impression: Head CT: 1. No acute intracranial abnormality. 2. Mild bilateral sinus disease. Cervical Spine CT: 1. No acute fracture or dislocation seen. 2. Degenerative changes as detailed in the body of the report. RADIA Read by Hermes Lopez MD on Oct 06 2013 12:15AM Final result by Rad Results In Richard (10/06/13 00:15:48) Impression: Head CT: 1. No acute intracranial abnormality. 2. Mild bilateral sinus disease. Cervical Spine CT: 1. No acute fracture or dislocation seen. 2. Degenerative changes as detailed in the body of the report. RADIA Electronically signed by Hermes Lopez MD on Oct 06 2013 12:15AM Referring Provider Line: [phone] ID: [id number] Narrative: EXAM: CT HEAD AND CERVICAL SPINE EXAM DATE: 10/05/2013 11:26 PM. CLINICAL HISTORY: Pain after injury. COMPARISON: Head CT, 07/08/2013. TECHNIQUE: Noncontrast axial sections through the head and cervical spine. Reformats: Coron al and sagittal of the cervical spine. FINDINGS CT HEAD: No focal areas of abnormally increased or decreased attenuation are seen in the brain paren chyma. No mass, mass effect, or midline shift is seen. No intracranial hemorrhage or extra-a xial fluid collections are noted. CSF spaces are within normal limits. Bone windows do not d emonstrate a depressed skull fracture. There is mild bilateral ethmoid sinus disease. Bilate ral frontal sinus disease is seen. FINDINGS CT CERVICAL SPINE: Alignment: Some images are degraded due to motion artifact. No spondylolisthesis or disloca tion identified. Bones: No fracture seen Interspace Levels/Facets: C1-C2: Degenerative changes between the anterior arch of C1 and the odontoid. C2-C3: Unremarkable. C3-C4: Mild degenerative disk disease. Mild left foraminal narrowing. C4-C5: Unremarkable. C5-C6: Mild degenerative disk disease. C6-C7: Minimal degenerative disk disease. C7-T1: Moderate degenerative joint disease in the right facet joint. Other: The paravertebral and prevertebral soft tissues are normal. The lung apices are joseph r. Mild bilateral carotid artery calcifications. X-ray thoracic spine 2 views (Final result) Result time: 10/06/13 07:26:42 Final result by Rad Results In Richard (10/06/13 07:26:42) Impression: 1. No acute fracture of the thoracic spine with stable appearance of degenerative changes . Narrative: NORAH GR 1955 XR THORACIC SPINE 2 VIEW 10/05/2013 11:15 PM INDICATION: Thoracic back pain COMPARISON: Chest x-ray, 08/22/13 TECHNIQUE: Thoracic spine series, 2 views FINDINGS: There are 12 thoracic rib pairs. The pedicles are intact. The posterior ribs are maintained with no acute fracture. The visualized lung is clear. There is moderate degenerat aissatou disc disease with lateral and anterior osteophyte formation. Vertebral body heights are maintained. There is no subluxation. ED Interpretation Documented by Kirill Hardy MD (10/06/13 00:15:01, [facility] Emergency Department, Emergency Medicine) Degenerative changes present, no fracture, no subluxation. ED Diagnoses Final diagnoses Closed head injury, initial encounter Cervical strain, initial encounter Thoracic myofascial strain, initial encounter Fall, initial encounter Disposition: ED Disposition Discharge Condition at discharge: Stable Follow-up Information Follow up With Details Comments Contact Info Jerrell Gutiérrez DO In 3 days [address] [facility] [address] [facility] Emergency Department If symptoms worsen, As needed [address] [facility] [address] Discharge Medications: Discharge Medication List as of 10/06/2013 12:52 AM Additional Documentation Procedures Attending Note: Documentation assistance provided by Divya Messer (Scribe). Information recorded by the scribe has been reviewed and validated by me. I ag qian with its contents. Kirill Hardy MD, [facility] Kirill Hardy MD 10/06/13 1465 Cleo light in this encounter Plan of Treatment +--------+---------+ + + + | Date | Type | Specialty | Care Team | Description | +--------+---------+ + + + | 09/10/ | Office | Geriatric Medicine | Mireya Pack, | | | 2019 | Visit | | ACCOUNTANT CERTIFIED PUBLIC [address] | | | | | | [address] [place], | | | | | | [place] [address] | | | | | | [phone] | | | | | | | | +--------+---------+ + + + | 09/29/ | Office | Urology | Mireya Pack, | | 2019 | Visit | | ACCOUNTANT CERTIFIED PUBLIC [address] | | | | | | [address] [place], | | | | | | [place] [address] | | | | | | [phone] | | | | | | | | | | | | Toy Wild, DO | | | | | | [address] | | | | | | [place] [address] | | | | | | [phone] | | | | | | | | +--------+---------+ + + + documented as of this encounter Procedures + +--------+ + + + | Procedure Name | Priori | Date/Time | Associated Diagnosis | Comments | | | ty | | | | + +--------+ + + + | HISTORICAL LAB PANEL | Routin | 10/05/2013 | | Results for this | | RESULT | e | 11:40 PM | | procedure are in the | | | | PDT | | results section. | + +--------+ + + + | CT HEAD CERVICAL | Routin | 10/05/2013 | | Results for this | | SPINE WO CONTRAST | e | 11:25 PM | | procedure are in the | | | | PDT | | results section. | + +--------+ + + + | XR THORACIC SPINE 2 | Routin | 10/05/2013 | | Results for this | | VW | e | 11:15 PM | | procedure are in the | | | | PDT | | results section. | + +--------+ + + + | POC GLUCOSE | Routin | 10/05/2013 | | Results for this | | | e | 11:05 PM | | procedure are in the | | | | PDT | | results section. | + +--------+ + + + documented in this encounter Results HISTORICAL LAB PANEL RESULT (10/05/2013 11:40 PM PDT) + + + + + -+ | Component | Value | Ref Range | Performed | Pathologist | | | | | At | Signature | + + + + + -+ | WBC | 10.0Comment: Testing | 3.8 - 11.0 K/uL | EXTERNAL | | | | performed at [facility];[address] | | LAB | | | [address];[place] | | | | | | [address] | | | | + + + + + -+ | Non- | 4.76Comment: Testing | 4.20 - 5.70 | EXTERNAL | | | Red Blood | performed at [facility];[address] | M/uL | LAB | | | Cells | [address];[place] | | | | | Counted | [id number] | | | | + + + + + -+ | Hemoglobin | 13.1 (L)Comment: Testing | 13.2 - 17.0 | EXTERNAL | | | | performed at [facility];[address] | g/dL | LAB | | | | [address];[place] | | | | | | [address] | | | | + + + + + -+ | Hematocrit, | 38.0 (L)Comment: Testing | 39.0 - 50.0 % | EXTERNAL | | | POC | performed at [facility];[address] | | LAB | | | | [address];[place] | | | | | | [address] | | | | + + + + + -+ | MCV | 79.7 (L)Comment: Testing | 80.0 - 100.0 fl | EXTERNAL | | | | performed at [facility] [place];[address] | | LAB | | | | [address];[place] | | | | | | [address] | | | | + + + + + -+ | MCH | 27.5Comment: Testing | 27.0 - 34.0 pg | EXTERNAL | | | | performed at [facility] [place];[address] | | LAB | | | | [address];[place] | | | | | | [address] | | | | + + + + + -+ | MCHC | 34.5Comment: Testing | 32.0 - 35.5 | EXTERNAL | | | | performed at [facility] [place];[address] | g/dL | LAB | | | | [address];[place] | | | | | | [address] | | | | + + + + + -+ | RDW-CV | 41.1Comment: Testing | 37 - 53 fl | EXTERNAL | | | | performed at [facility] [place];[address] | | LAB | | | | [address];[place] | | | | | | [address] | | | | + + + + + -+ | Platelet | 265Comment: Testing | 150 - 400 K/uL | EXTERNAL | | | Count | performed at [facility] [place];[address] | | LAB | | | Plasma | [address];[place] | | | | | | [address] | | | | + + + + + -+ | MPV | 7.4Comment: Testing | fl | EXTERNAL | | | | performed at [facility] [place];[address] | | LAB | | | | [address];[place] | | | | | | [address] | | | | + + + + + -+ | Differentia | AUTOMATEDComment: | | EXTERNAL | | | l Type | Testing performed at | | LAB | | | | [facility] [place];[address];[place] [address] | | | | + + + + + -+ | % Segmented | 56.6Comment: Testing | % | EXTERNAL | | | | performed at [facility] [place];[address] | | LAB | | | Neutrophils | [address];[place] | | | | | | [address] | | | | + + + + + -+ | % | 31.5Comment: Testing | % | EXTERNAL | | | Lymphocytes | performed at [facility] [place];[address] | | LAB | | | | [address];[place] | | | | | | [address] | | | | + + + + + -+ | % Monocytes | 8.5Comment: Testing | % | EXTERNAL | | | | performed at [facility] [place];[address] | | LAB | | | | [address];[place] | | | | | | [address] | | | | + + + + + -+ | % | 2.9Comment: Testing | % | EXTERNAL | | | Eosinophils | performed at [facility] [place];[address] | | LAB | | | | [address];[place] | | | | | | [address] | | | | + + + + + -+ | % Basophils | 0.5Comment: Testing | % | EXTERNAL | | | | performed at [facility] [place];[address] | | LAB | | | | [address];[place] | | | | | | [address] | | | | + + + + + -+ | Absolute | 5.6Comment: Testing | 1.9 - 7.4 K/uL | EXTERNAL | | | Segmented | performed at [facility] [place];[address] | | LAB | | | Neutrophils | [address];[place] | | | | | | [address] | | | | + + + + + -+ | Absolute | 3.1Comment: Testing | 1.0 - 3.9 K/uL | EXTERNAL | | | Lymphocytes | performed at [facility] [place];[address] | | LAB | | | | [address];[place] | | | | | | [address] | | | | + + + + + -+ | Absolute | 0.8Comment: Testing | 0 - 0.8 K/uL | EXTERNAL | | | Monocytes | performed at [facility] [place];[address] | | LAB | | | | [address];[place] | | | | | | [address] | | | | + + + + + -+ | Absolute | 0.3Comment: Testing | 0 - 0.5 K/uL | EXTERNAL | | | Eosinophils | performed at [facility] [place];[address] | | LAB | | | | [address];[place] | | | | | | [address] | | | | + + + + + -+ | Absolute | 0.1Comment: Testing | 0 - 0.1 K/uL | EXTERNAL | | | Basophils | performed at [facility] [place];[address] | | LAB | | | | [address];[place] | | | | | | [address] | | | | + + + + + -+ | Na | 140Comment: Testing | 135 - 143 | EXTERNAL | | | | performed at [facility] [place];[address] | mmol/L | LAB | | | | [address];[place] | | | | | | [address] | | | | + + + + + -+ | K | 3.7Comment: SLT | 3.5 - 4.9 | EXTERNAL | | | | HEMOLYSISTesting | mmol/L | LAB | | | | performed at [facility] [place];[address] | | | | | | [address];[place] | | | | | | [address] | | | | + + + + + -+ | Cl | 105Comment: Testing | 99 - 109 mmol/L | EXTERNAL | | | | performed at [facility] [place];[address] | | LAB | | | | [address];[place] | | | | | | [address] | | | | + + + + + -+ | CO2 | 27Comment: Testing | 23 - 32 mmol/L | EXTERNAL | | | | performed at [facility] [place];[address] | | LAB | | | | [address];[place] | | | | | | [address] | | | | + + + + + -+ | Anion Gap | 11Comment: Testing | 5 - 20 mmol/L | EXTERNAL | | | | performed at [facility] [place];[address] | | LAB | | | | [address];[place] | | | | | | [address] | | | | + + + + + -+ | Glucose, | 233 (H)Comment: Testing | 65 - 99 mg/dL | EXTERNAL | | | Fasting | performed at [facility] [place];[address] | | LAB | | | | [address];[place] | | | | | | [address] | | | | + + + + + -+ | BUN | 17Comment: Testing | 8 - 25 mg/dL | EXTERNAL | | | | performed at [facility] [place];[address] | | LAB | | | | [address];[place] | | | | | | [address] | | | | + + + + + -+ | Creatinine | 1.12Comment: Testing | 0.70 - 1.30 | EXTERNAL | | | | performed at [facility] [place];[address] | mg/dL | LAB | | | | [address];[place] | | | | | | [address] | | | | + + + + + -+ | BUN/Creatin | 15Comment: Testing | | EXTERNAL | | | ine Ratio | performed at [facility] [place];[address] | | LAB | | | | [address];[place] | | | | | | [address] | | | | + + + + + -+ | Calcium | 8.2 (L)Comment: Testing | 8.5 - 10.2 | EXTERNAL | | | | performed at [facility] [place];[address] | mg/dL | LAB | | | | [address];[place] | | | | | | [address] | | | | + + + + + -+ | Protein, | 6.8Comment: Testing | 6.3 - 8.2 g/dL | EXTERNAL | | | Total | performed at [facility] [place];[address] | | LAB | | | | [address];[place] | | | | | | [address] | | | | + + + + + -+ | Albumin | 3.2 (L)Comment: Testing | 3.6 - 5.0 g/dL | EXTERNAL | | | | performed at [facility] [place];[address] | | LAB | | | | [address];[place] | | | | | | [address] | | | | + + + + + -+ | Globulin | 3.6Comment: Testing | 1.3 - 4.9 g/dL | EXTERNAL | | | | performed at [facility] [place];[address] | | LAB | | | | [address];[place] | | | | | | [address] | | | | + + + + + -+ | A/G Ratio | 0.9 (L)Comment: Testing | 1.0 - 2.4 | EXTERNAL | | | | performed at [facility] [place];[address] | | LAB | | | | [address];[place] | | | | | | [address] | | | | + + + + + -+ | Bilirubin | 0.3Comment: Testing | 0.1 - 1.5 mg/dL | EXTERNAL | | | Total | performed at [facility] [place];[address] | | LAB | | | | [address];[place] | | | | | | [address] | | | | + + + + + -+ | ALP, | 90Comment: Testing | 35 - 115 U/L | EXTERNAL | | | External | performed at [facility] [place];[address] | | LAB | | | | [address];[place] | | | | | | [address] | | | | + + + + + -+ | AST | 28Comment: SLT | 10 - 45 U/L | EXTERNAL | | | | HEMOLYSISTesting | | LAB | | | | performed at [facility] [place];[address] | | | | | | [address];[place] | | | | | | [address] | | | | + + + + + -+ | ALT | 25Comment: Testing | 10 - 65 U/L | EXTERNAL | | | | performed at [facility] [place];[address] | | LAB | | | | [address];[place] | | | | | | [address] | | | | + + + [...] | | | | | at [facility] [place];[address] | | | | | [address];[place] [address] | | | | + + + + + -+ | CK, Total | 201Comment: SLT | 55 - 400 U/L | EXTERNAL | | | | HEMOLYSISTesting | | LAB | | | | performed at [facility] [place];[address] | | | | | | [address];[place] | | | | | | [address] | | | | + + + [...] | | | | performed at [facility] [place];[address] | | | | | | [address];[place] | | | | | | [address] | | | | + + + + + -+ | aPTT, | 22 (L)Comment: Testing | 23 - 32 seconds | EXTERNAL | | | Patient | performed at [facility] [place];[address] | | LAB | | | | [address];[place] | | | | | | [address] | | | | + + + + + -+ | CK-MB | 4.4 (H)Comment: Testing | 0.5 - 3.6 ng/mL | EXTERNAL | | | | performed at [facility] [place];[address] | | LAB | | | | [address];[place] | | | | | | [address] | | | | + + + + + -+ | CK-MB Index | 2.2Comment: CK INDEX | | EXTERNAL | | [...] | + +---------+ + + CT Head Cervical Spine wo Contrast (10/05/2013 11:25 PM PDT) + + | Specimen | + + | | + + + + + | Impressions | Performed At | + + + | Head CT: 1. No acute intracranial abnormality. 2. Mild | | | bilateral sinus disease. Cervical Spine CT: 1. No acute fracture or | | | dislocation seen. 2. Degenerative changes as detailed in the body of | | | the report. [facility] Electronically signed by Hermes Lopez MD on | | | Oct 06 2013 12:15AM Referring Provider Line: [phone] ID: [id number] | | + + + + + + | Narrative | Performed At | + + + | EXAM: CT HEAD AND CERVICAL SPINE EXAM DATE: 10/05/2013 11:26 PM. | | | CLINICAL HISTORY: Pain after injury. COMPARISON: Head CT, | | | 07/08/2013. TECHNIQUE: Noncontrast axial sections through the head | | | and cervical spine. Reformats: Coronal and sagittal of the cervical | | | spine. FINDINGS CT HEAD: No focal areas of abnormally increased | | | or decreased attenuation are seen in the brain parenchyma. No mass, | | | mass effect, or midline shift is seen. No intracranial hemorrhage or | | | extra-axial fluid collections are noted. CSF spaces are within normal | | | limits. Bone windows do not demonstrate a depressed skull fracture. | | | There is mild bilateral ethmoid sinus disease. Bilateral frontal sinus | | | disease is seen. FINDINGS CT CERVICAL SPINE: Alignment: Some | | | images are degraded due to motion artifact. No spondylolisthesis or | | | dislocation identified. Bones: No fracture seen Interspace | | | Levels/Facets: C1-C2: Degenerative changes between the anterior arch | | | of C1 and the odontoid. C2-C3: Unremarkable. C3-C4: Mild | | | degenerative disk disease. Mild left foraminal narrowing. C4-C5: | | | Unremarkable. C5-C6: Mild degenerative disk disease. C6-C7: | | | Minimal degenerative disk disease. C7-T1: Moderate degenerative | | | joint disease in the right facet joint. Other: The paravertebral | | | and prevertebral soft tissues are normal. The lung apices are clear. | | | Mild bilateral carotid artery calcifications. | | + + + + + | Procedure Note | + + | Joaquin Ramos Conversion - 09/21/2018 3:31 PM PDT EXAM:CT HEAD AND CERVICAL SPINEEXAM | | DATE: 10/05/2013 11:26 PM. CLINICAL HISTORY: Pain after injury. COMPARISON: Head CT, | | 07/08/2013. TECHNIQUE: Noncontrast axial sections through the head and cervical spine. | | Reformats: Coronal and sagittal of the cervical spine. FINDINGS CT HEAD:No focal areas | | of abnormally increased or decreased attenuation are seen in the brain parenchyma. No | | mass, mass effect, or midline shift is seen. No intracranial hemorrhage or extra-axial | | fluid collections are noted. CSF spaces are within normal limits. Bone windows do not | | demonstrate a depressed skull fracture. There is mild bilateral ethmoid sinus disease. | | Bilateral frontal sinus disease is seen. FINDINGS CT CERVICAL SPINE:Alignment: Some | | images are degraded due to motion artifact. No spondylolisthesis or dislocation | | identified. Bones: No fracture seen Interspace Levels/Facets:C1-C2: Degenerative changes | | between the anterior arch of C1 and the odontoid. C2-C3: Unremarkable. C3-C4: Mild | | degenerative disk disease. Mild left foraminal narrowing. C4-C5: Unremarkable. C5-C6: | | Mild degenerative disk disease. C6-C7: Minimal degenerative disk disease. C7-T1: | | Moderate degenerative joint disease in the right facet joint. Other: The paravertebral | | and prevertebral soft tissues are normal. The lung apices are clear. Mild bilateral | | carotid artery calcifications. IMPRESSION: Head CT:1. No acute intracranial | | abnormality.2. Mild bilateral sinus disease.Cervical Spine CT:1. No acute fracture or | | dislocation seen.2. Degenerative changes as detailed in the body of the report. [facility] | | Electronically signed by Hermes Lopez MD on Oct 06 2013 12:15AM Referring Provider Line: | | [phone] ID: [id number] | |C1-C2: Degenerative changes between the anterior arch of C1 and the odontoid. | | | |C2-C3: Unremarkable. | | | |C3-C4: Mild degenerative disk disease. Mild left foraminal narrowing. | | | |C4-C5: Unremarkable. | | | |C5-C6: Mild degenerative disk disease. | | | |C6-C7: Minimal degenerative disk disease. | | | |C7-T1: Moderate degenerative joint disease in the right facet joint. | | | |Other: The paravertebral and prevertebral soft tissues are normal. The lung apices are joseph r. Mild bilateral carotid artery calcifications. | | | |IMPRESSION: | | | |Head CT: | |1. No acute intracranial abnormality. | |2. Mild bilateral sinus disease. | |Cervical Spine CT: | |1. No acute fracture or dislocation seen. | |2. Degenerative changes as detailed in the body of the report. | | | |[facility] | | | | Electronically signed by Hermes Lopez MD on Oct 06 2013 12:15AM Referring Provider Line: [phone] ID: [id number] | + + XR Thoracic Spine 2 Vw (10/05/2013 11:15 PM PDT) + + | Specimen | + + | | + + + + + | Impressions | Performed At | + + + | 1. No acute fracture of the thoracic spine with stable appearance | | | of degenerative changes. | | + + + + + + | Narrative | Performed At | + + + | [facility] 1955 XR THORACIC SPINE 2 VIEW 10/05/2013 11:15 | | | PM INDICATION: Thoracic back pain COMPARISON: Chest x-ray, | | | 08/22/13 TECHNIQUE: Thoracic spine series, 2 views FINDINGS: | | | There are 12 thoracic rib pairs. The pedicles are intact. The | | | posterior ribs are maintained with no acute fracture. The visualized | | | lung is clear. There is moderate degenerative disc disease with | | | lateral and anterior osteophyte formation. Vertebral body heights | | | are maintained. There is no subluxation. | | + + + + + | Procedure Note | + + | Richard, Rad Conversion - 09/21/2018 3:31 PM SHALONDA [id number] THORACIC | | SPINE 2 VIEW10/05/2013 11:15 PM INDICATION: Thoracic back pain COMPARISON: Chest x-ray, | | 08/22/13 TECHNIQUE: Thoracic spine series, 2 views FINDINGS: There are 12 thoracic rib | | pairs. The pedicles are intact. The posterior ribs are maintained with no acute | | fracture. The visualized lung is clear. There is moderate degenerative disc disease with | | lateral and anterior osteophyte formation. Vertebral body heights are maintained. There | | is no subluxation. IMPRESSION: 1. No acute fracture of the thoracic spine with stable | | appearance of degenerative changes. Electronically signed by Kishan Ji MD on | | 10/06/2013 7:26 AM | |TECHNIQUE: Thoracic spine series, 2 views | | | |FINDINGS: There are 12 thoracic rib pairs. The pedicles are intact. The posterior ribs are maintained with no acute fracture. The visualized lung is clear. There is moderate degenerat aissatou disc disease with lateral and anterior osteophyte formation. | |Vertebral body heights are maintained. There is no subluxation. | | | |IMPRESSION: | |1. No acute fracture of the thoracic spine with stable appearance of degenerative changes. | | | | | + + POC Glucose (10/05/2013 11:05 PM PDT) + + + + + + | Component | Value | Ref Range | Performed | Pathologist | | | | | At | Signature | + + + + + + | Glucose, | 246 (H)Comment: Testing | 65 - 99 mg/dL | EXTERNAL | | | Fingerstick | performed at [facility] [place];[address] | | LAB | | | | [address];[place], [place] | | | | | | [address] | | | | + + + [...] injury, initial encounter | + + | Cervical strain, initial encounter | + + | Thoracic myofascial strain, initial encounter | + + | Fall, initial encounter | + + documented in this encounter
--- OUTSIDE RECORDS SUMMARY | ~2019-09-09 | XMS | Encounter Summary ---
Demographics + + + | Address | [address] | | | [place] [address] | + + + | Home Phone | | + + + | Preferred Language | Unknown | + + + | Marital Status | | + + + | Orthodox Affiliation | 1027 | + + + | Race | Unknown | + + + | Ethnic Group | Unknown | + + + Author + + + | Author | [facility] | | | and [place] | + + + | Organization | [facility] | | | and [place] | + + + | Address | Unknown | + + + | Phone | Unavailable | + + + Support + + + + + | Name | Relationship | Address | Phone | + + + + + | Sammi Kohler | ECON | [place] [address] | | + + + + + Care Team Providers + +------+ + | Care Teachers Assistant Name | Role | Phone | + +------+ + PCP | Unavailable | + +------+ + Encounter Details +--------+ + + + + | Date | Type | Department | Care Team | Description | +--------+ + + + + | 07/24/ | Emergency | [facility] | Ramirez, Bimal S, | Dizziness; Numbness | | 2015 | | [facility] | MD [address] | on left side; | | | | EMERGENCY CENTER | [place], [place] | Atypical chest pain | | | | [address] | [address] | | | | | [place], [place] | | | | | | [address] | | | | | | [phone] | | | +--------+ + + + [...] ED Notes Conversion Transaction, Provider Unknown - 07/24/2014 3:03 AM PDTFormatting of this note m ight be different from the original. ED Notes by Naren Ann RN at 07/24/14302 Author: Naren Ann RN Service: (none) Author Type: Registered Nurse Filed: 07/24/14302 Date of Service: 07/24/14302 Status: Addendum Education Spec: Naren Ann RN (Registered Nurse) Related Notes: Original Note by Naren T Lemon, RN (Registered Nurse) filed at [phone] test complete, pt tolerated well. Ambulated to nurses station sans assistance. Naren Ann RN 07/24/14302 Bimal Cheung MD - 07/24/2014 12:56 AM PDT ED Provider Notes by Bimal Ramirez DO at 07/24/1455 Author: Bimal Ramirez DO Service: (none) Author Type: Physician Filed: 07/25/14 0010 Date of Service: 07/24/1455 Status: Signed Education Spec: Bimal Ramirez DO (Physician) [facility] Department of Emergency Medicine 12:56 AM 07/24/2014 History of Present Illness Patient Identification Kevyn Guzman is a 58 y.o. male. Patient information was obtained from patient. History/Exam limitations: none. Patient presented to the Emergency Department by: Juliana Tracey 1723 (PCP: JERRELL GUTIÉRREZ.) Chief Complaint Chief Complaint Patient presents with Numbness Chief complaint: Chief Complaint Patient presents with Numbness Location: left sided Quality: tingling Severity: moderate Duration: intermittent Timing: onset 1 month ago Modifying factors: none Care prior to arrival: none Associated symptoms: dizziness, chest pain, burping, nausea Denies: recent illness, SOB, or any other sx at this time. Denies eating anything unusual. Pt lives at home alone. Pt states he is on disability due to developmental delay. Pt states he wears a life alert and does have someone who comes and checks on him. Pt reports he last fell 2 months ago. Past Medical History Diagnosis Date Diabetes mellitus [...] pain Stroke (HCC) TIA (transient ischemic attack) care home (current) use of 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 Past Surgical History Procedure Laterality Date Unlisted procedure arthroscopy Knee surgery rt knee, patella Leg surgery LLE Colonoscopy Cholecystectomy, laparoscopic 09/12/2012 Procedure: LAPAROSCOPIC - CHOLECYSTECTOMY; Surgeon: Jevon Vargas DO; Location: [facility] MAIN OR; Service: General; 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; Abdominal surgery Cholecystectomy Skin cancer excision 10/10/2012 Procedure: EXCISION - SKIN CANCER; Surgeon: Sy Fierro MD; Location: [facility] MAIN OR ; Service: Plastics; Laterality: Left; upper arm and upper back w/frozen section Esophagogastroduodenoscopy 03/03/2013 Procedure: ESOPHAGOGASTRODUODENOSCOPY; Surgeon: Howie Gibson MD; Location: [facility] ENDOSCOPY; S ervice: Gastroenterology; 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; Colonoscopy 03/04/2013 Procedure: COLONOSCOPY; Surgeon: Howie Gibson MD; Location: [facility] ENDOSCOPY; Service: Gastroe nterology; 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; Upper gastrointestinal endoscopy Skin biopsy Hernia repair 07/03/2013 Procedure: LAPAROSCOPIC - HERNIA - INCISIONAL; Surgeon: Jevon Vargas DO; Location: [facility] MAIN OR; Service: General; 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; Skin lesion excision Left 05/05/2014 Procedure: EXCISION - LESION - FROZEN SECTION; Surgeon: Sy Fierro MD; Location: [facility] MAIN OR; Service: Plastics; Laterality: Left; forearm Prior to Admission medications Medication Sig Start Date End Date Taking? Authorizing Provider Albuterol Sulfate (VENTOLIN HFA IN) Inhale 2 puffs into the lungs as needed. 108 mcg/act Historical Provider Mgquv-Y-Zgbgwbcywflbo (BEANO) TABS Take 150 Units by mouth [...] 100 mg by mouth nightly. Historical Provider komyesfsn-vxdnjeua-bsjrpyuou hydroxide-simethicone Take 40 mLs by mouth daily [...] of Children: 1 Years of Education: s. [employer] Occupational History disabled Social History Main Topics [...] Brother Review of Systems Constitutional: Negative for fever, chills Eyes: Negative for vision changes Nose: Negative for congestion, nosebleeds Throat: Negative for sore throat CV/Resp: Positive for chest pain Negative for slyirmmpw-uv-gvwizn, cough GI: Positive for burping and nausea Negative for abdominal pain, vomiting, or diarrhea : Negative for urinary problems Musculoskeletal: Negative for back pain, joint pain Skin: Negative for rash Neuro/Psych: Positive for dizziness and left sided tingling Negative for headache Endo/heme/Lymph: Negative for swollen lymph nodes, easy bruising All other systems reviewed and negative except as noted. Physical Exam BP 129/69 | Pulse 87 | Temp(Src) 98.4 F (36.9 C) (Oral) | Resp 18 | Wt 103.42 kg (228 l b) | SpO2 99% Vitals Interpretation: Normal. Pulse Oximetry interpretation: Normal General: Alert, no active distress and not requiring any emergent interventions Eyes: Normal inspection, pupils equal and round, non-icteric sclera. No nystagmus. ENT: Ears normal Nose normal without discharge or drainage Pharynx normal with no exudates or discharge Neck: Normal inspection with no lymphadenopathy Supple Full ROM No carotid bruit with midline trachea Cardiovascular: Normal rate and rhythm, no extra sounds No murmurs rubs or gallops Focal PMI Respiratory: No respiratory distress or wheezing Normal excursion No retractions Abdomen: Round abdomen, soft, non-tender No rebound or guarding Normal active bowel sounds Back: Normal inspection Without tenderness or deformity Skin: Color normal Warm and dry Extremities: Non pitting edema to the legs BARNARD with equal pulses in the upper and lower extremities bilaterally Neuro: No gross motor/sensory deficit GCS 15 No cerebellar deficits Alert and oriented to person, place, time and situation. Medical Decision Making and Emergency Department Course ED Department Course 12:56 AM The patient presents with the chief complaint of left sided tingling and dizzines s, accompanied by chest pain and GI complaints. My DDx includes, but is not limited to: acut e ICH, metabolic derangement, medication reaction, musculoskeletal pain. Will order labs, EK G, CXR, and CT head, and reevaluate the patient. Patient is stable at this time. 3:[address] tested well. CXR unremarkable. CT head unremarkable. Troponin negative. EKG normal. Labs show mild abnormalities but no acute findings. 3:04 AM Patient reevaluation. Patient is stable and feeling better at this time, states the tingling has resolved. I discussed all ED results and my clinical impression with the patie nt. Patient is ready for discharge. I advised patient to follow up with a PCP and we discuss ed the emergent signs and symptoms that would necessitate a return to ED. The patient unders tands and agrees with the plan. All questions and concerns addressed. Will discharge home. ED Medication Administration from 07/24/2014 0041 to 07/24/2014 0516 Date/Time Order Dose Route Action Action by 07/24/2014 0157 sodium chloride 0.9 % flush 10 mL 10 mL Intravenous Given Yanna wolff RN 07/24/2014 0157 ondansetron (ZOFRAN) injection 8 mg 8 mg Intravenous Given Yanna desir RN Filed Vitals: 07/24/14 0046 07/24/14 0158 07/24/14 0303 BP: 129/69 135/71 147/73 Pulse: 87 75 76 Temp: 98.4 F (36.9 C) 97.9 F (36.6 C) TempSrc: Oral Oral Resp: Weight: 103.42 kg (228 lb) SpO2: 99% 98% 93% Records Reviewed Old ED records reviewed (Using the electronic record system of [facility], I car efully reviewed the records with regard to the past medical/surgical history, previous medic ations, and allergies). Pt had recent admission for chest pain with stress test obtained at that time. Nursing notes reviewed for chief complaint, medications, clinical presentation and vital si gns. Laboratory Evaluation Results Procedure Component Value Ref Range Date/Time Amylase [[id number]] Collected: 07/24/1444 Order Status: Completed Updated: 07/24/14132 AMYLASE 31 25 - 115 U/L Lipase [[id number]] Collected: 07/24/1444 Order Status: Completed Updated: 07/24/14132 LIPASE 176 73 - 393 U/L Cardiac Panel [[id number]] (Abnormal) Collected: 07/24/1444 Order Status: Completed Updated: 07/24/14119 WBC 10.02 3.80 - 11.00 K/uL RBC 5.05 4.20 - 5.70 M/uL HGB 12.9 (L) 13.2 - 17.0 g/dL HCT 39.5 39.0 - 50.0 % MCV 78.2 (L) 80.0 - 100.0 fl MCH 25.4 (L) 27.0 - 34.0 pg MCHC 32.5 32.0 - 35.5 g/dL RDW SD 46.8 37 - 53 fl PLT 311 150 - 400 K/uL MPV 7.9 fl DIFF TYPE AUTOMATED NEUTROPHILS 64.50 % LYMPHOCYTES 22.29 % MONOCYTES 8.95 % EOSINOPHILS 3.62 % BASOPHILS 0.64 % NEUTROPHILS ABS 6.46 1.90 - 7.40 K/uL LYMPHOCYTES ABS 2.23 1.00 - 3.90 K/uL MONOCYTES ABS 0.90 (H) 0.00 - 0.80 K/uL EOSINOPHILS ABS 0.36 0.00 - 0.50 K/uL BASOPHILS ABS 0.06 0.00 - 0.10 K/uL SODIUM 144 (H) 135 - 143 mmol/L POTASSIUM 3.8 3.5 - 4.9 mmol/L CHLORIDE 110 (H) 99 - 109 mmol/L CO2 27 23 - 32 mmol/L ANION GAP AGAP 11 5 - 20 mmol/L GLUCOSE 125 (H) 65 - 99 mg/dL BUN 13 8 - 25 mg/dL CREATININE 0.93 0.70 - 1.30 mg/dL BUN/CREAT 14 CALCIUM 8.3 (L) 8.5 - 10.5 mg/dL TOTAL PROTEIN 7.3 6.3 - 8.2 g/dL Albumin 3.3 (L) 3.6 - 5.0 g/dL GLOBULIN 4.0 1.3 - 4.9 g/dL A/G 0.8 (L) 1.0 - 2.4 TBIL 0.3 0.1 - 1.5 mg/dL ALK PHOS 92 35 - 115 U/L AST 22 10 - 45 U/L ALT 22 10 - 65 U/L EGFR >60 >60 mL/min/1.73m2 CPK 101 55 - 400 U/L INR 1.9 APTT 32 23 - 32 seconds MMB 3.2 0.5 - 3.6 ng/mL CK-MB Index 3.2 POC cardiac troponin [[id number]] Collected: 07/24/14 005 Order Status: Completed Updated: 07/24/14106 POC CARDIAC TROPONIN 0.01 0.00 - 0.10 ng/mL I personally reviewed the lab results and they have been posted to the chart. Pertinent po sitive and negative findings have been addressed appropriately. Radiology and EKG Evaluation Imaging Results XR Chest PA and Lateral (Final result) Result time: 07/24/14 07:23:29 Final result by Rad Results In Richard (07/24/14 07:23:29) Impression: 1. No active intrathoracic disease. 2. Borderline cardiac enlargement. Narrative: HISTORY: Chest pain. COMPARISON: 07/13/14. TECHNIQUE: AP and lateral films of the chest. FINDINGS: Heart size is mildly enlarged. No congestion. No infiltrates. No effusions. Subtle degenera tive changes of the thoracic spine. ED Interpretation Documented by Bimal Ramirez DO (07/24/14 03:02:30, [facility] Emergency Department, Emergency Medicine) Chest X-ray: No acute disease, normal lung markings, no infiltrates, normal heart size, normal mediastinum and great vessels, no fractures or bony lesions, Normal soft tissue. Views: PA and lateral, Good technique No acute changes from prior study 07/2014 Preliminary Interpretation by Bimal Ramirez DO CT Head Non-Con (Final result) Result time: 07/24/14 02:18:38 Preliminary result by Rad Results In Richard (07/24/14 02:18:38) Impression: No acute or focal intracranial abnormality . [facility] Read by Refugio Barahona MD on Jul 24 2014 2:18AM Final result by Rad Results In Richard (07/24/14 02:18:28) Impression: No acute or focal intracranial abnormality . [facility] Electronically signed by Refugio Barahona on Jul 24 2014 2:18AM Referring Provider Line: [phone] ID: [id number] Narrative: EXAM: CT HEAD EXAM DATE: 07/24/2014 01:48 AM. CLINICAL HISTORY: Vertigo/Dizziness. COMPARISON: MR brain 05/12/2014 , head CT 05/08/2014. TECHNIQUE: Multiaxial CT images were obtained from the foramen magnum to the vertex. IV con trast: None. Reformats: Coronal. FINDINGS: Parenchyma: No intraparenchymal hemorrhage. No evidence of mass, midline shift or CT findin gs of infarction. Morrissey-white differentiation is distinct. Extraaxial Spaces: Normal for age. No subdural or epidural collections identified. Ventricles: Normal in size and position. Sinuses: Imaged paranasal sinuses, orbits, and mastoids show no significant abnormality. Bones: No evidence of fracture or calvarial defect. Other: No significant interval change EKG at 0053 Normal sinus rhythm at 77. Normal MD and RICHARD Normal QRS and [place] Normal QT and QTc Normal ST/T without acute ischemic changes An EKG dated 07/13/2014 is unchanged in comparison to the EKG obtained today. Interpreted by Bimal Ramirez DO. ED Diagnoses Final diagnoses Dizziness, resolved Numbness on left side, chronic, recurrent Atypical chest pain Disposition: ED Disposition Discharge Condition at discharge: Stable Follow-up Information Follow up With Details Comments Contact Info Jerrell Gutiérrez DO In [address] [place] [address] [facility] [address] [facility] Emergency Department If symptoms worsen [address] [facility] [address] Discharge Medications: Discharge Medication List as of 07/24/2014 3:07 AM This document has been prepared with a voice recognition system. The possibility of "sound alike" grails web application developer errors, addition and/or deletions may occur. If there is any question p lease contact the author of the document. Procedures Additional Documentation Procedures Attending Note: Documentation assistance provided by Kathryn Melendez (Scribe). Information recorded by the scribe has been reviewed and validated by . Troy laughlin with its contents. DO Bimal Sunshine DO 07/25/14 0010 onversion Transac tion, Provider Unknown - 07/24/2014 12:54 AM PDTFormatting of this note might be different f rom the original. ED Notes by Yanna Loera RN at 07/24/1453 Author: Yanna Loera RN Service: (none) Author Type: Registered Nurse Filed: 07/24/1454 Date of Service: 07/24/1453 Status: Signed Education Spec: Yanna Loera RN (Registered Nurse) Pt c/o midsternal chest pain/SOB/nausea starting this morning. Pt updated on plan of care, call light within reach. Yanna Loera RN 07/24/1454 onver ivana Transaction, Provider Unknown - 07/24/2014 12:41 AM PDT ED Notes by Naren Ann RN at 07/24/1440 Author: Naren Ann RN Service: (none) Author Type: Registered Nurse Filed: 07/24/1440 Date of Service: 07/24/1440 Status: Signed Education Spec: Naren Ann RN (Registered Nurse) Bed: 02 Expected date: Expected time: Means of arrival: Comments: EMS onver ivana Transaction, Provider Unknown - 07/24/2014 12:37 AM PDT ED Notes by Vadim Bernal RN at 07/24/1436 Author: Vadim Bernal RN Service: (none) Author Type: Registered Nurse Filed: 07/24/1437 Date of Service: 07/24/1436 Status: Signed Education Spec: Vadim Bernal RN (Registered Nurse) Per EMS: Patient complains of numbness and tingling to left side. 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 Vadim Bernal RN 07/24/1437 Genaro wilson in this encounter Plan of Treatment +--------+---------+ + + + | Date | Type | Specialty | Care Team | Description | +--------+---------+ + + + | 09/10/ | Office | Geriatric Medicine | Mireya Pack, | | | 2019 | Visit | | [employer] MACHINE OPERATOR [address] | | | | | | [facility] [address] [place], | | | | | | [place] [address] | | | | | | [phone] | | | | | | | | +--------+---------+ + + + | 09/29/ | Office | Urology | Mireya Pack, | | | 2019 | Visit | | [employer] MACHINE OPERATOR [address] | | | | | | [facility] [address] [place] | | | | | | [place] [address] | | | | | | [phone] | | | | | | | | | | | | [place], | | | | | | [address] | | | | | | [place] [address] | | | | | | [phone] | | | | | | | | +--------+---------+ + + + documented as of this encounter Procedures + +--------+ + + + | Procedure Name | Priori | Date/Time | Associated Diagnosis | Comments | | | ty | | | | + +--------+ + + + | XR CHEST 2 VIEWS | Routin | 07/24/2014 | | Results for this | | | e | 2:58 AM | | procedure are in the | | | | PDT | | results section. | + +--------+ + + + | CT HEAD WO CONTRAST | Routin | 07/24/2014 | | Results for this | | | e | 1:47 AM | | procedure are in the | | | | PDT | | results section. | + +--------+ + + + | ECG 12 LEAD | Routin | 07/24/2014 | | Results for this | | | e | 12:53 AM | | procedure are in the | | | | PDT | | results section. | + +--------+ + + + | HISTORICAL LAB PANEL | Routin | 07/24/2014 | | Results for this | | RESULT | e | 12:45 AM | | procedure are in the | | | | PDT | | results section. | + +--------+ + + + | LIPASE | Routin | 07/24/2014 | | Results for this | | | e | 12:45 AM | | procedure are in the | | | | PDT | | results section. | + +--------+ + + + | AMYLASE | Routin | 07/24/2014 | | Results for this | | | e | 12:45 AM | | procedure are in the | | | | PDT | | results section. | + +--------+ + + + documented in this encounter Results XR Chest 2 Vws (07/24/2014 2:58 AM PDT) + + | Specimen | + + | | + + + + + | Impressions | Performed At | + + + | 1. No active intrathoracic disease. 2. Borderline cardiac | | | enlargement. Electronically signed by Bhavin Guzman MD on | | | 07/24/2014 7:23 AM | | + + + + + + | Narrative | Performed At | + + + | HISTORY: Chest pain. COMPARISON: 07/13/14. TECHNIQUE: AP | | | and lateral films of the chest. FINDINGS: Heart size is mildly | | | enlarged. No congestion. No infiltrates. No effusions. Subtle | | | degenerative changes of the thoracic spine. | | + + + + + | Procedure Note | + + | Joaquin Ramos Conversion - 09/20/2018 10:29 PM PDT HISTORY:Chest pain. COMPARISON:07/13/14. | | TECHNIQUE:AP and lateral films of the chest. FINDINGS:Heart size is mildly enlarged. No | | congestion. No infiltrates. No effusions. Subtle degenerative changes of the thoracic | | spine. IMPRESSION: 1. No active intrathoracic disease.2. Borderline cardiac | | enlargement. | | | |TECHNIQUE: | |AP and lateral films of the chest. | | | |FINDINGS: | |Heart size is mildly enlarged. No congestion. No infiltrates. No effusions. Subtle degenera tive changes of the thoracic spine. | | | |IMPRESSION: | |1. No active intrathoracic disease. | |2. Borderline cardiac enlargement. | | | | | + + CT Head wo Contrast (07/24/2014 1:47 AM PDT) + + | Specimen | + + | | + + + + + | Impressions | Performed At | + + + | No acute or focal intracranial abnormality . [facility] | | | Electronically signed by Refugio Barahona on Jul 24 2014 2:18AM | | | Referring Provider Line: [phone] ID: [id number] | | + + + + + + | Narrative | Performed At | + + + | EXAM: CT HEAD EXAM DATE: 07/24/2014 01:48 AM. CLINICAL | | | HISTORY: Vertigo/Dizziness. COMPARISON: MR brain 05/12/2014 , head | | | CT 05/08/2014. TECHNIQUE: Multiaxial CT images were obtained from | | | the foramen magnum to the vertex. IV contrast: None. Reformats: | | | Coronal. FINDINGS: Parenchyma: No intraparenchymal hemorrhage. No | | | evidence of mass, midline shift or CT findings of infarction. | | | Morrissey-white differentiation is distinct. Extraaxial Spaces: Normal | | | for age. No subdural or epidural collections identified. | | | Ventricles: Normal in size and position. Sinuses: Imaged paranasal | | | sinuses, orbits, and mastoids show no significant abnormality. | | | Bones: No evidence of fracture or calvarial defect. Other: No | | | significant interval change | | + + + + + | Procedure Note | + + | Joaquin Ramos Conversion - 09/20/2018 10:29 PM PDT EXAM:CT HEAD EXAM DATE: 07/24/2014 01:48 | | AM. CLINICAL HISTORY: Vertigo/Dizziness. COMPARISON: MR brain 05/12/2014 , head CT | | 05/08/2014. TECHNIQUE: Multiaxial CT images were obtained from the foramen magnum to the | | vertex. IV contrast: None. Reformats: Coronal. FINDINGS:Parenchyma: No intraparenchymal | | hemorrhage. No evidence of mass, midline shift or CT findings of infarction. Morrissey-white | | differentiation is distinct. Extraaxial Spaces: Normal for age. No subdural or epidural | | collections identified. Ventricles: Normal in size and position. Sinuses: Imaged | | paranasal sinuses, orbits, and mastoids show no significant abnormality. Bones: No | | evidence of fracture or calvarial defect. Other: No significant interval change | | IMPRESSION: No acute or focal intracranial abnormality . RADIA Electronically signed by | | Refugio Barahona on Jul 24 2014 2:18AM Referring Provider Line: [phone] ID: [id number] | |FINDINGS: | |Parenchyma: No intraparenchymal hemorrhage. No evidence of mass, midline shift or CT findin gs of infarction. Morrissey-white differentiation is distinct. | | | |Extraaxial Spaces: Normal for age. No subdural or epidural collections identified. | | | |Ventricles: Normal in size and position. | | | |Sinuses: Imaged paranasal sinuses, orbits, and mastoids show no significant abnormality. | | | |Bones: No evidence of fracture or calvarial defect. | | | |Other: No significant interval change | | | |IMPRESSION: | |No acute or focal intracranial abnormality . | | | |RAD[facility] | | | | Electronically signed by Refugio Barahona on Jul 24 2014 2:18AM Referring Provider Line: [phone] ID: [id number] | + + ECG 12 lead (07/24/2014 12:53 AM PDT) + + + + + [...] of | | | | | | 14-JUL-2014 12:19,No | | | | | | significant [...] (500), | | | | | | news copy editor Usha Arellano | | | | | | (98) on 07/24/2014 | | | | | | 2:09:05 AM | | | | + + + + + + + + | Specimen | + + | | + + + + + | Narrative | Performed At | + + + | Historically converted procedure from [facility] Epic environment | EXTERNAL LAB | + + + + +---------+ + + | Performing | Address | City/State/Zipcode | Phone Number | | Organization | | | | + +---------+ + + | EXTERNAL LAB | | | | + +---------+ + + HISTORICAL LAB PANEL RESULT (07/24/2014 12:45 AM PDT) + + + + + -+ | Component | Value | Ref Range | Performed | Pathologist | | | | | At | Signature | + + + + + -+ | WBC | 10.02Comment: Testing | 3.80 - 11.00 | EXTERNAL | | | | performed at [facility];[address] | K/uL | LAB | | | | [address];[place] | | | | | | [address] | | | | + + + + + -+ | Non- | 5.05Comment: Testing | 4.20 - 5.70 | EXTERNAL | | | Red Blood | performed at [facility];[address] | M/uL | LAB | | | Cells | [address];[place] | | | | | Counted | [id number] | | | | + + + + + -+ | Hemoglobin | 12.9 (L)Comment: Testing | 13.2 - 17.0 | EXTERNAL | | | | performed at [facility];[address] | g/dL | LAB | | | | [address];[place] | | | | | | [address] | | | | + + + + + -+ | Hematocrit, | 39.5Comment: Testing | 39.0 - 50.0 % | EXTERNAL | | | POC | performed at [facility];[address] | | LAB | | | | [address];[place] | | | | | | [address] | | | | + + + + + -+ | MCV | 78.2 (L)Comment: Testing | 80.0 - 100.0 fl | EXTERNAL | | | | performed at [facility];[address] | | LAB | | | | [address];[place] | | | | | | [address] | | | | + + + + + -+ | MCH | 25.4 (L)Comment: Testing | 27.0 - 34.0 pg | EXTERNAL | | | | performed at [facility];[address] | | LAB | | | | [address];[place] | | | | | | [address] | | | | + + + + + -+ | MCHC | 32.5Comment: Testing | 32.0 - 35.5 | EXTERNAL | | | | performed at [facility];[address] | g/dL | LAB | | | | [address];[place] | | | | | | [address] | | | | + + + + + -+ | RDW-CV | 46.8Comment: Testing | 37 - 53 fl | EXTERNAL | | | | performed at [facility];[address] | | LAB | | | | [address];[place] | | | | | | [address] | | | | + + + + + -+ | Platelet | 311Comment: Testing | 150 - 400 K/uL | EXTERNAL | | | Count | performed at [facility];[address] | | LAB | | | Plasma | [address];[place] | | | | | | [address] | | | | + + + + + -+ | MPV | 7.9Comment: Testing | fl | EXTERNAL | | | | performed at [facility];[address] | | LAB | | | | [address];[place] | | | | | | [address] | | | | + + + + + -+ | Differentia | AUTOMATEDComment: | | EXTERNAL | | | l Type | Testing performed at | | LAB | | | | [facility];[address];[place] [address] | | | | + + + + + -+ | % Segmented | 64.50Comment: Testing | % | EXTERNAL | | | | performed at [facility];[address] | | LAB | | | Neutrophils | [address];[place] | | | | | | [address] | | | | + + + + + -+ | % | 22.29Comment: Testing | % | EXTERNAL | | | Lymphocytes | performed at [facility];[address] | | LAB | | | | [address];[place] | | | | | | [address] | | | | + + + + + -+ | % Monocytes | 8.95Comment: Testing | % | EXTERNAL | | | | performed at [facility];[address] | | LAB | | | | [address];[place] | | | | | | [address] | | | | + + + + + -+ | % | 3.62Comment: Testing | % | EXTERNAL | | | Eosinophils | performed at [facility];[address] | | LAB | | | | [address];[place] | | | | | | [address] | | | | + + + + + -+ | % Basophils | 0.64Comment: Testing | % | EXTERNAL | | | | performed at [facility];[address] | | LAB | | | | [address];[place] | | | | | | [address] | | | | + + + + + -+ | Absolute | 6.46Comment: Testing | 1.90 - 7.40 | EXTERNAL | | | Segmented | performed at [facility];[address] | K/uL | LAB | | | Neutrophils | [address];[place] | | | | | | [address] | | | | + + + + + -+ | Absolute | 2.23Comment: Testing | 1.00 - 3.90 | EXTERNAL | | | Lymphocytes | performed at [facility];[address] | K/uL | LAB | | | | [address];[place] | | | | | | [address] | | | | + + + + + -+ | Absolute | 0.90 (H)Comment: Testing | 0.00 - 0.80 | EXTERNAL | | | Monocytes | performed at [facility];[address] | K/uL | LAB | | | | [address];[place] | | | | | | [address] | | | | + + + + + -+ | Absolute | 0.36Comment: Testing | 0.00 - 0.50 | EXTERNAL | | | Eosinophils | performed at [facility];[address] | K/uL | LAB | | | | [address];[place] | | | | | | [address] | | | | + + + + + -+ | Absolute | 0.06Comment: Testing | 0.00 - 0.10 | EXTERNAL | | | Basophils | performed at [facility];[address] | K/uL | LAB | | | | [address];[place] | | | | | | [address] | | | | + + + + + -+ | Na | 144 (H)Comment: Testing | 135 - 143 | EXTERNAL | | | | performed at [facility];[address] | mmol/L | LAB | | | | [address];[place] | | | | | | [address] | | | | + + + + + -+ | K | 3.8Comment: Testing | 3.5 - 4.9 | EXTERNAL | | | | performed at [facility];[address] | mmol/L | LAB | | | | [address];[place] | | | | | | [address] | | | | + + + + + -+ | Cl | 110 (H)Comment: Testing | 99 - 109 mmol/L | EXTERNAL | | | | performed at [facility];[address] | | LAB | | | | [address];[place] | | | | | | [address] | | | | + + + + + -+ | CO2 | 27Comment: Testing | 23 - 32 mmol/L | EXTERNAL | | | | performed at [facility];[address] | | LAB | | | | [address];[place] | | | | | | [address] | | | | + + + + + -+ | Anion Gap | 11Comment: Testing | 5 - 20 mmol/L | EXTERNAL | | | | performed at [facility];[address] | | LAB | | | | [address];[place] | | | | | | [address] | | | | + + + + + -+ | Glucose, | 125 (H)Comment: Testing | 65 - 99 mg/dL | EXTERNAL | | | Fasting | performed at [facility];[address] | | LAB | | | | [address];[place] | | | | | | [address] | | | | + + + + + -+ | BUN | 13Comment: Testing | 8 - 25 mg/dL | EXTERNAL | | | | performed at [facility];[address] | | LAB | | | | [address];[place] | | | | | | [address] | | | | + + + + + -+ | Creatinine | 0.93Comment: Testing | 0.70 - 1.30 | EXTERNAL | | | | performed at [facility];[address] | mg/dL | LAB | | | | [address];[place] | | | | | | [address] | | | | + + + + + -+ | BUN/Creatin | 14Comment: Testing | | EXTERNAL | | | ine Ratio | performed at [facility];[address] | | LAB | | | | [address];[place] | | | | | | [address] | | | | + + + + + -+ | Calcium | 8.3 (L)Comment: Testing | 8.5 - 10.5 | EXTERNAL | | | | performed at [facility];[address] | mg/dL | LAB | | | | [address];[place] | | | | | | [address] | | | | + + + + + -+ | Protein, | 7.3Comment: Testing | 6.3 - 8.2 g/dL | EXTERNAL | | | Total | performed at [facility];[address] | | LAB | | | | [address];[place] | | | | | | [address] | | | | + + + + + -+ | Albumin | 3.3 (L)Comment: Testing | 3.6 - 5.0 g/dL | EXTERNAL | | | | performed at [facility];[address] | | LAB | | | | [address];[place] | | | | | | [address] | | | | + + + + + -+ | Globulin | 4.0Comment: Testing | 1.3 - 4.9 g/dL | EXTERNAL | | | | performed at [facility];[address] | | LAB | | | | [address];[place] | | | | | | [address] | | | | + + + + + -+ | A/G Ratio | 0.8 (L)Comment: Testing | 1.0 - 2.4 | EXTERNAL | | | | performed at [facility];[address] | | LAB | | | | [address];[place] | | | | | | [address] | | | | + + + + + -+ | Bilirubin | 0.3Comment: Testing | 0.1 - 1.5 mg/dL | EXTERNAL | | | Total | performed at [facility];[address] | | LAB | | | | [address];[place] | | | | | | [address] | | | | + + + + + -+ | ALP, | 92Comment: Testing | 35 - 115 U/L | EXTERNAL | | | External | performed at [facility];[address] | | LAB | | | | [address];[place] | | | | | | [address] | | | | + + + + + -+ | AST | 22Comment: Testing | 10 - 45 U/L | EXTERNAL | | | | performed at [facility];[address] | | LAB | | | | [address];[place] | | | | | | [address] | | | | + + + + + -+ | ALT | 22Comment: Testing | 10 - 65 U/L | EXTERNAL | | | | performed at [facility];[address] | | LAB | | | | [address];[place] | | | | | | [address] | | | | + + + [...] | | | | | | at [facility];[address];[place] [address] | | | | + + + + + -+ | CK, Total | 101Comment: Testing | 55 - 400 U/L | EXTERNAL | | | | performed at [facility];[address] | | LAB | | | | [address];[place] | | | | | | [address] | | | | + + + + + -+ | INR | 1.9Comment: REFERENCE | | EXTERNAL | | | [...] | | | | | performed at [facility];[address] | | | | | | [address];[place] | | | | | | [address] | | | | + + + + + -+ | aPTT, | 32Comment: Testing | 23 - 32 seconds | EXTERNAL | | | Patient | performed at [facility];[address] | | LAB | | | | [address];[place] | | | | | | [address] | | | | + + + + + -+ | CK-MB | 3.2Comment: Testing | 0.5 - 3.6 ng/mL | EXTERNAL | | | | performed at [facility];[address] | | LAB | | | | [address];[place] | | | | | | [address] | | | | + + + + + -+ | CK-MB Index | 3.2Comment: CK INDEX | | EXTERNAL | | [...] | | + +---------+ + + Lipase (07/24/2014 12:45 AM PDT) + + + + + + | Component | Value | Ref Range | Performed | Pathologist | | | | | At | Signature | + + + + + + | Lipase | 176Comment: Testing | 73 - 393 U/L | EXTERNAL | | | | performed at [facility];[address] | | LAB | | | | [address];[place] | | | | | | [address] | | | | + + + + + + + + | Specimen | + + | | + + + +---------+ + + | Performing | Address | City/State/Zipcode | Phone Number | | Organization | | | | + +---------+ + + | EXTERNAL LAB | | | | + +---------+ + + Amylase (07/24/2014 12:45 AM PDT) + + + + + + | Component | Value | Ref Range | Performed | Pathologist | | | | | At | Signature | + + + + + + | Amylase | 31Comment: Testing | 25 - 115 U/L | EXTERNAL | | | | performed at [facility];[address] | | LAB | | | | [address];[place], [place] | | | | | | [address] | | | | + + + [...] + | Diagnosis | + + | Dizziness Dizziness and giddiness | + + | Numbness on left side Disturbance of skin sensation | + + | Atypical chest pain Other chest pain | + + documented in this encounter
--- OUTSIDE RECORDS SUMMARY | ~2019-09-09 | XMS | Clinical Summary ---
Demographics + + + | Address | [address] | | | [place] [address] | + + + | Home Phone | | + + + | Preferred Language | Unknown | + + + | Marital Status | | + + + | [employer]ar[employer] Affiliation | 1027 | + + + | Race | Unknown | + + + | Ethnic Group | Unknown | + + + Author + + + | Author | [facility] | | | and [place] | + + + | Organization | [facility] | | | and [place] | + + + | Address | Unknown | + + + | Phone | Unavailable | + + + Support + + + + + | Name | Relationship | Address | Phone | + + + + + | Sammi Kohler | ECON | [place] [address] | | + + + + + Care Team Providers + +------+ + | Care [facility] Sewer Name | Role | Phone | + +------+ + | Holly Pack NP | PCP | | + +------+ + Allergies + + + + + + | Active Allergy | Reactions | Severity | Noted | Comments | | | | | Date | | + + + + + + | Nitroglycerin | Swelling | High | 10/21/19 | Tongue swelling | | | | | 18 | | + + + + + + | Vitamin B12 | Rash | High | 11/24/19 | Rash | | | | | 12 | | + + + + + + Medications + + + +---------+------+------+-------+ | Medication | Sig | Dispensed | Refills | Star | End | Statu | | | | | | t | Date | s | | | | | | Date | | | + + + +---------+------+------+-------+ | atorvaSTATin | Take 1 tablet by | 30 | 11 | 11/2 | | Activ | | (LIPITOR) 40 mg | mouth nightly. | tablet | | 0/20 | | e | | tabletIndications: | | | | 19 | | | | Type 2 diabetes [...] | | | | + + + +---------+------+------+-------+ | lisinopril | Take 1 tablet by | 30 | 11 | 02 | | Activ | | (PRINIVIL,ZESTRIL) | mouth Daily. | tablet | | 10/26 | | e | | 40 MG tablet | | | | 20 | | | + + + +---------+------+------+-------+ | Blood Glucose | Dispense brand per | 1 each | 0 | / | | Activ | | Monitoring Suppl | patient preference | | | 03/28 | | e | | (BLOOD GLUCOSE | | | | 20 | | | | MONITOR SYSTEM) | [...] | | | | + + + +---------+------+------+-------+ | Lancets (ACCU-CHEK | 1 each by Other | 400 | 3 | 03/ | | Activ | | MULTICLIX) | route 4 times daily. | each | | 2/20 | | e | | MISCIndications: | | | | 20 | | | | Type 2 diabetes | | | | | | | | mellitus with | | | | | | | | hyperglycemia, with | | | | | | | | long-term current | | | | | | | | use of insulin (HCC) | | | | | | | + + + +---------+------+------+-------+ | Glucose Blood | For blood sugar | 400 | 3 | / | | Activ | | (BLOOD GLUCOSE TEST | testing 4 times | each | | 2/20 | | e | | STRIPS) | daily | | | 20 | | | | STRPIndications: | | [...] | | | use of insulin ([facility]) | | | | | | | + + + +---------+------+------+-------+ | insulin lispro | Inject 20 Units | 12 mL | 3 | 05/08 | | Activ | | (HUMALOG KWIKPEN) | under the skin 3 | | | 3/20 | | e | | 100 units/mL | times daily (with | | | 20 | | | | injection | meals). | | | | | | | [...] | | | | + + + +---------+------+------+-------+ | insulin detemir | Inject 45 Units | 12 mL | 3 | 04/2 | | Activ | | (LEVEMIR FLEXTOUCH) | under the skin | | | 3/20 | | e | | 100 units/mL | nightly. | | | 20 | | | | injection | | [...] | | | | + + + +---------+------+------+-------+ | Blood Pressure | Dispense as | 1 each | 0 | 04/2 | | Activ | | KITIndications: | insurance allows to | | | 820 | | e | | Essential | check Blood Pressure | | | 20 | | | | hypertension | one time daily each | | | | | | | | day. | | | | | | + + + +---------+------+------+-------+ | Insulin Pen Needle | For insulin | 400 | 3 | 06/1 | | Activ | | (BD PEN NEEDLE KYAW | administration 4 | each | | 6/20 | | e | | U/F) 32G X 4 MM | times daily | | | 20 | | | | MISCIndications: | | [...] | | | | + + + +---------+------+------+-------+ | NIFEdipine (ADALAT | Take 1 tablet by | | 0 | 06 | | Activ | | CC) 60 MG 24 hr | mouth Daily. | | | 520 | | e | | tablet | | | | 20 | | | + + + +---------+------+------+-------+ | docusate-senna | Take 2 tablets by | 60 | 0 | 06/1 | | Activ | | (SENOKOT-S) 50-8.6 | mouth 2 times daily | tablet | | 920 | | e | | mg per tablet | | | | 20 | | | + + + +---------+------+------+-------+ | meclizine | Take 25 mg by mouth | | 0 | | | Activ | | (ANTIVERT) 25 mg | as needed. | | | | | e | | tablet | | | | | | | + + + +---------+------+------+-------+ | warfarin | Take 1 tab po daily | 30 | 11 | 07/0 | | Activ | | (COUMADIN) 5 mg | or as directed by | tablet | | 1/20 | | e | | tabletIndications: | coumadin clinic | | | 20 | | | | Longstanding | based on INR. | | | | | | | persistent atrial | | | | | | | | fibrillation (HCC) | | | | | | | + + + +---------+------+------+-------+ | hydrALAZINE | Take 1 tablet by | 60 | 11 | 07/1 | | Activ | | (APRESOLINE) 25 mg | mouth 2 times daily. | tablet | | 5/20 | | e | | tabletIndications: | | | | 20 | | | | Essential | | | | | | | | hypertension | | | | | | | + + + +---------+------+------+-------+ | albuterol 90 | Inhale 2 puffs into | 1 | 0 | 07/1 | | Activ | | mcg/puff | the lungs every 6 | Inhaler | | 5/20 | | e | | inhalerIndications: | hours as needed for | | | 20 | | | | Chronic obstructive | Wheezing. | | | | | | | pulmonary disease, | | | | | | | | unspecified COPD | | | | | | | | type ([facility]) | | | | | | | + + + +---------+------+------+-------+ | | Inhale 2 puffs into | 1 | 0 | 07/1 | 07/1 | Activ | | budesonide-formotero | the lungs 2 times | Inhaler | | 5/20 | 5/20 | e | | l (SYMBICORT) | daily. | | | 20 | 21 | | | 160-4.5 mcg/puff | | | | | | | | inhalerIndications: | | | | | | | | Chronic obstructive | | | | | | | | pulmonary disease, | | | | | | | | unspecified COPD | | | | | | | | type ([facility]) | | | | | | | + + + +---------+------+------+-------+ | psyllium, sugar | Take 1 packet by | | 0 | 07/1 | | Activ | | free, (METAMUCIL | mouth Daily. | | | /20 | | e | | FIBER) | | | | 20 | | | | packetIndications: | | | | | | | | Irregular bowel | | | | | | | | habits | | | | | | | + + + +---------+------+------+-------+ | warfarin | Take by mouth Daily | | 0 | | | Activ | | (COUMADIN) 5 mg | 7.5 mg every Mon, | | | | | e | | tablet | Mon; 5 mg all | | | | | | | | other days . | | | | | | + + + +---------+------+------+-------+ | metoprolol | TAKE ONE TABLET BY | 180 | 3 | 08/0 | | Activ | | succinate | MOUTH TWICE DAILY | tablet | | 20 | | e | | (TOPROL-XL) 50 mg 24 | | | | 20 | | | | hr tablet | | | | | | | + + + +---------+------+------+-------+ | ARIPiprazole | TAKE ONE TABLET BY | 90 | 3 | 08/0 | | Activ | | (ABILIFY) 5 mg | MOUTH DAILY | tablet | | 3/20 | | e | | tablet | | | | 20 | | | + + + +---------+------+------+-------+ | | Inhale 2 puffs into | 1 | 0 | 09/2 | 08/06 | Disco | | budesonide-formotero | the lungs 2 times | Inhaler | | 6/20 | 5/20 | ntinu | | l (SYMBICORT) | daily. | | | 19 | 20 | ed | | 160-4.5 mcg/puff | | | | | | (Reor | | inhaler | | | | | | carlos | | | | | | | | (no | | | | | | | | Cance | | | | | | | | l Rx | | | | | | | | msg)) | + + + +---------+------+------+-------+ | ARIPiprazole | Take 1 tablet by | 30 | 4 | 04/1 | 08/0 | Disco | | (ABILIFY) 5 mg | mouth Daily. | tablet | | 1/20 | 3/20 | ntinu | | tablet | | | | 20 | 20 | ed | + + + +---------+------+------+-------+ | hydrALAZINE | Take 1 tablet by | 60 | 11 | 06/0 | 07/ | Disco | | (APRESOLINE) 25 mg | mouth Twice daily | tablet | | 3/20 | 20 | ntinu | | tabletIndications: | as needed (in | | | 20 | 20 | ed | | Essential | addition to | | | | | (Reor | | hypertension | scheduled. for bp > | | | | | carlos | | | 170/80). | | | | | (no | | | | | | | | Cance | | | | | | | | l Rx | | | | | | | | msg)) | + + + +---------+------+------+-------+ | metoprolol | Take 1 tablet (50 mg | 60 | 0 | 061 | 08/0 | Disco | | succinate | total) by mouth 2 | tablet | | 10/26 | 3/20 | ntinu | | (TOPROL-XL) 50 mg 24 | times daily | | | 20 | 20 | ed | | hr tablet | | | | | | | + + + +---------+------+------+-------+ Active Problems + + + | Problem | Noted Date | + + + | Pneumonia | 07/24/2019 | + + + | Sepsis | 07/04/2019 | + + + | Bacteremia | 07/04/2019 | + + + | Fever | 07/03/2019 | + + + | Dizziness | 01/04/2019 | + + + | Fall from ground level | 01/04/2019 | + + + | Uncontrolled type 2 diabetes mellitus with hyperglycemia | 01/04/2019 | + + + | COPD (chronic obstructive pulmonary disease) | 01/04/2019 | + + + | KESHAWN (acute kidney injury) | 01/04/2019 | + + + | Chronic anticoagulation | 01/04/2019 | + + + | Developmental delay | 01/04/2019 | + + + | Obesity | 10/19/2018 | + + + | Syncope | 10/12/2018 | + + + | Other chest pain | 10/12/2018 | + + + | Uncontrolled hypertension | 10/12/2018 | + + + | Type 2 diabetes mellitus with hyperglycemia | 10/12/2018 | + + + | Anxiety | 10/12/2018 | + + + | Chronic anticoagulation | 10/12/2018 | + + + | Abrasion of scalp | 03/29/2018 | + + + | Acute neck sprain | 03/29/2018 | + + + | Back contusion | 03/29/2018 | + + + | Cervical muscle strain | 03/29/2018 | + + + | Chest wall pain | 03/29/2018 | + + + | CHI (closed head injury) | 03/29/2018 | + + + | Chronic radicular pain of lower extremity | 03/29/2018 | + + + | Constipation | 03/29/2018 | + + + | Contusion of right knee | 03/29/2018 | + + + | Diarrhea | 03/29/2018 | + + + | DVT (deep venous thrombosis) | 03/29/2018 | + + + | Dysphagia | 03/29/2018 | + + + | Fall | 03/29/2018 | + + + | Fall from ground level | 03/29/2018 | + + + | Flank pain | 03/29/2018 | + + + | Generalized weakness | 03/29/2018 | + + + | Genitourinary symptoms | 03/29/2018 | + + + | History of knee surgery | 03/29/2018 | + + + | Head contusion | 03/29/2018 | + + + | Injury of head | 03/29/2018 | + + + | Headache | 03/29/2018 | + + + | History of Coumadin therapy | 03/29/2018 | + + + | History of hip surgery | 03/29/2018 | + + + | History of syncope | 03/29/2018 | + + + | Hyperglycemia | 03/29/2018 | + + + | Hyperglycemia due to type 2 diabetes mellitus | 03/29/2018 | + + + | Leg pain | 03/29/2018 | + + + | Low back pain | 03/29/2018 | + + + | Nausea | 03/29/2018 | + + + | Neck pain | 03/29/2018 | + + + | Orthostatic hypotension | 03/29/2018 | + + + | Penile swelling | 03/29/2018 | + + + | Peripheral vertigo | 03/29/2018 | + + + | Right flank pain | 03/29/2018 | + + + | Right-sided chest wall pain | 03/29/2018 | + + + | Shakes | 03/29/2018 | + + + | Shortness of breath | 03/29/2018 | + + + | Shoulder pain | 03/29/2018 | + + + | Suicidal thoughts | 03/29/2018 | + + + | Syncope | 03/29/2018 | + + + | Retention of urine | 03/29/2018 | + + + | UTI (urinary tract infection) | 03/29/2018 | + + + | Precordial pain | 10/14/2017 | + + + | Pulmonary embolism without acute cor pulmonale | 10/14/2017 | + + + | Uncontrolled type 2 diabetes mellitus | 10/14/2017 | + + + | Leukocytosis | 10/14/2017 | + + + | Acute kidney injury | 10/14/2017 | + + + | Numbness and tingling of right leg | 06/16/2016 | + + + | Musculoskeletal chest pain | 02/25/2015 | + + + | Anxiety | 12/27/2014 | + + + | Depression | 12/27/2014 | + + + | Hypertension | 12/27/2014 | + + + | Chronic anticoagulation | 12/27/2014 | + + + | 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 | 07/14/2014 | + + + | Actinic keratosis | 06/26/2014 | + + + | Atrial fibrillation with RVR | 05/20/2014 | + + + | TIA (transient ischemic attack) | 05/06/2014 | + + + | CKD (chronic kidney disease) | 04/28/2014 | + + + | Obesity, Class I, BMI 30-34.9 | 07/08/2013 | + + + | Paroxysmal atrial fibrillation | 04/18/2013 | + + + | Hyperlipidemia | 04/18/2013 | + + + | Chronic back pain | 04/18/2013 | + + + | History of GI bleed | 03/02/2013 | + + + | ARF (acute renal failure) | 03/02/2013 | + + + | COPD (chronic obstructive pulmonary disease) | 03/02/2013 | + + + | COPD (chronic obstructive pulmonary disease) | 03/02/2013 | + + + + + | Overview: hypoxemia on 2 lts nc | + + + + + | Basal cell carcinoma | 09/26/2012 | + + + | Cholelithiases | 08/11/2012 | + + + | WARD (obstructive sleep apnea) | 08/11/2012 | + + + | WARD (obstructive sleep apnea) | 08/11/2012 | + + + + + | Overview: does not use CPAP because of the noise | + + + + + | Chest pain | 09/24/2011 | + + + | HTN (hypertension) | 09/24/2011 | + + + | Diabetes mellitus, type 2 | | + + + Encounters +--------+ + + + + | Date | Type | Specialty | Care Team | Description | +--------+ + + + + | 09/06/ | Emergency | Emergency Medicine | Breanne Hurtado, | Chest discomfort | | 2019 | | | DO | (Primary Dx); | | | | | | Urinary frequency; | | | | | | Type 2 diabetes | | | | | | mellitus with | | | | | | hyperglycemia, with | | | | | | long-term current | | | | | | use of insulin ([facility]) | +--------+ + + + + | 09/05/ | Refill | Geriatric Medicine | Holly Pack, | Medication Refill | | 2019 | | | TOUR SALES REPRESENTATIVE | | +--------+ + + + + | 09/01/ | Anti-coag | Anticoagulation | Holly Pack, | Atrial fibrillation | | 2019 | visit | | TOUR SALES REPRESENTATIVE Raymond, | with RVR ([facility]) | | | | | CITLALY Peralta | | +--------+ + + + + | 08/25/ | Telephone | Anticoagulation | Jeni Dean, | | | 2019 | | | [place] | | +--------+ + + + + | 08/22/ | Anti-coag | Anticoagulation | Holly Pack, | Atrial fibrillation | | 2019 | visit | | TOUR SALES REPRESENTATIVE Ninoska Knight, | with RVR ([facility]) | | | | | PSYCHOLOGICAL ASSISTANT | | +--------+ + + + + 08/22/ | Telephone | Anticoagulation | Jeni Dean, | | | 2020 | | | [place] | | +--------+ + + + + | 08/20/ | Office | Geriatric Medicine | Holly Pack, | Chronic a-fib (HCC) | | 2020 | Visit | | TOUR SALES REPRESENTATIVE | (Primary Dx); | | | | | | Essential | | | | | | hypertension; | | | | | | Chronic obstructive | | | | | | pulmonary disease, | | | | | | unspecified COPD | | | | | | type ([facility]); | | | | | | Irregular bowel | | | | | | habits | +--------+ + + + + | 08/20/ | Telephone | Geriatric Medicine | Holly Pack, | Appointment (call to | | 2019 | | | TOUR SALES REPRESENTATIVE | schedule an | | | | | | apointment) | +--------+ + + + + | 08/06/ | Anti-coag | Anticoagulation | Holly Pack, | Longstanding | | 2019 | visit | | TOUR SALES REPRESENTATIVE Jeni Dean, | persistent atrial | | | | | [place] | fibrillation ([facility]) | | | | | | (Primary Dx); Atrial | | | | | | fibrillation with | | | | | | RVR ([facility]) | +--------+ + + + + | 08/05/ | Emergency | Emergency Medicine | Ana Victoria, | Other insomnia | 2019 | | | Zach Adams | (Primary Dx); Atrial | | | | | R, DO | fibrillation, | | | | | | unspecified type | | | | | | (HCC); | | | | | | Hyperglycemia; | | | | | | Essential | | | | | | hypertension | +--------+ + + + + | 08/05/ | Telephone | Geriatric Medicine | Holly Pack, | Home Health | | 2019 | | | TOUR SALES REPRESENTATIVE | | +--------+ + + + + | 08/01/ | Telephone | Geriatric Medicine | Lucia Amos | Blood Pressure | | 2020 | | | EVE Garcia | (asymptomatic) | +--------+ + + + + | 07/31/ | Telephone | Case Management | Sanjuanita Rodriguez RN | TCM - Hosp FU | | 2020 | | | | | +--------+ + + + + | 07/30/ | Office | Geriatric Medicine | Holly Pack, | COPD with lower | | 2020 | Visit | | TOUR SALES REPRESENTATIVE | respiratory | | | | | | infection (HCC) | | | | | | (Primary Dx); Type 2 | | | | | | diabetes mellitus | | | | | | with hyperglycemia, | | | | | | with long-term | | | | | | current use of | | | | | | insulin ([facility]); BPH | | | | | | with | | | | | | obstruction/lower | | | | | | urinary tract | | | | | | symptoms; Chronic | | | | | | a-fib ([facility]); | | | | | | Impacted cerumen, | | | | | | bilateral | +--------+ + + + + | 07/29/ | Telephone | Case Management | Sanjuanita Rodriguez RN | Other (Phone number | | 2019 | | | | clarification) | +--------+ + + + + | 07/28/ | Telephone | Case Management | Sanjuanita Rodriguez RN | [facility] - Hosp [facility] | | 2019 | | | | | +--------+ + + + + | 07/22/ | Hospital | Internal Medicine | Reina Hill, | Aspiration pneumonia | | 2019 - | Encounter | | Tj George DO | of right lung, | | | | | Luigi Brooks MD | unspecified | | 07/25/ | | | | aspiration pneumonia | | 2019 | | | | type, unspecified | | | | | | part of lung (HCC) | | | | | | (Primary Dx); | | | | | | Paroxysmal atrial | | | | | | fibrillation (HCC); | | | | | | Generalized weakness | +--------+ + + + + | 07/22/ | Refill | Geriatric Medicine | Mel Morton, | Medication Refill | | 2019 | | | Payment Specialist | | +--------+ + + + + | 07/21/ | Telephone | Geriatric Medicine | Holly Pack, | Other | | 2019 | | | TOUR SALES REPRESENTATIVE | | +--------+ + + + + | 07/17/ | Telephone | Geriatric Medicine | Lucia Amos | Other | | 2019 | | | EVE Garcia | | +--------+ + + + + | 07/15/ | Telephone | Geriatric Medicine | Holly Pack, | Home Health | | 2019 | | | TOUR SALES REPRESENTATIVE | | +--------+ + + + + | 07/14/ | Emergency | Emergency Medicine | Norah Barker MD | Uncontrolled type 2 | | 2019 | | | | diabetes mellitus | | | | | | with hyperglycemia | | | | | | (HCC) (Primary Dx); | | | | | | Uncontrolled | | | | | | hypertension; | | | | | | Chronic diarrhea | +--------+ + + + + | 07/14/ | Telephone | Geriatric Medicine | Holly Pack, | Triage | | 2020 | | | TOUR SALES REPRESENTATIVE | | +--------+ + + + + | 07/09/ | Virtual | Geriatric Medicine | Holly Pack, | Essential | | 2019 | Office | | TOUR SALES REPRESENTATIVE | hypertension | | | Visit | | | (Primary Dx); Type 2 | | | | | [...] type | +--------+ + + + + | 07/09/ | Telephone | Geriatric Medicine | Holly Pack, | Other (concerns | | 2019 | | | TOUR SALES REPRESENTATIVE | about medications) | +--------+ + + + + | 07/07/ | Telephone | Case Management | Sanjuanita Rodriguez RN | TCM - Hosp FU | | 2019 | | | | | +--------+ + + + + | 07/07/ | Telephone | Geriatric Medicine | Holly Pack, | Follow-up | 2019 | | | TOUR SALES REPRESENTATIVE | | +--------+ + + + + | 07/05/ | Emergency | Emergency Medicine | Breanne Hurtado, | Hypertension, | | 2019 | | | DO Zach Tena, | unspecified type | | | | | | (Primary Dx); | | | | | | Difficulty obtaining | | | | | | medication; Fall, | | | | | | initial encounter | +--------+ + + + + | 07/02/ | Hospital | Internal Medicine | Mracos Nugent, | Sepsis, due to | | 2019 - | Encounter | | Kristian Reid | unspecified | | | | | MD Isauro Andrea Asif | organism, | | 07/04/ | | | MD Villa | unspecified whether | | 2019 | | | | acute organ | | | | | | dysfunction present | | | | | | ([facility]) (Primary Dx); | | | | | | Febrile illness, | | | | | | acute; Atrial | | | | | | fibrillation with | | | | | | RVR ([facility]); Positive | | | | | | blood culture; | | | | | | Chronic obstructive | | | | | | pulmonary disease, | | | | | | unspecified COPD | | | | | | type ([facility]); | | | | | | Developmental delay; | | | | | | Type 2 diabetes | | | | | | mellitus with | | | | | | hyperglycemia, | | | | | | unspecified whether | | | | | | buttermaker continuous churn insulin | | | | | | use ([facility]) | +--------+ + + + + | 06/25/ | Refill | Geriatric Medicine | Holly Pack, | Medication Refill | | 2019 | | | TOUR SALES REPRESENTATIVE | | +--------+ + + + + | 06/19/ | Telephone | Geriatric Medicine | Lucia Amos | Lelia HERNANDEZ : BP | | 2019 | | | EVE Garcia | today) | +--------+ + + + + | 06/17/ | Telephone | Case Management | Sanjuanita Rodriguez RN | | | 2019 | | | | | +--------+ + + + + from Last 3 Months Immunizations + + + + | Name | Administration Dates | Next Due | + + + + | INFLUENZA 64 Y OR >, | 11/07/2018 | | | TRIVALENT HIGH-DOSE | | | + + + + | INFLUENZA PF | 02/07/2018, 12/16/2014 | | | QUAD(PED/ADOL/ADULT) | | | | ,PSKT or VIAL | | | + + + + | INFLUENZA PF | 10/28/2016, 11/09/2011 | | | TRIVALENT(PED/ADOL/A | | | | DULT), PSKT | | | + + + + | INFLUENZA TRIV | 11/15/2013 | | | W/PRES(PED/ADOL/ADUL | | | | T),MULTIDOSE | | | + + + + | PNEUMOCOCCAL | 11/07/2018 | | | CONJUGATE 13-VALENT | | | | (PCV13) | | | + + + + | TDAP, (ADOL/ADULT) | 12/16/2014 | | + + + + Family History + + +------+ + | Medical History | Relation | Name | Comments | + + +------+ + | Other (see comment) | Brother | | Heart Problems | + + +------+ + | Heart disease | Father | | | + + +------+ + | Heart disease | Sister | | | + + +------+ + | Diabetes, NIDDM | Sister | | | + + +------+ + + +------+ + + | Relation | Name | Status | Comments | + +------+ + + | Brother | | Alive | | + +------+ + + | Brother | | | | + +------+ + + | Father | | | | + +------+ + + | Mother | | | | + +------+ + + | Sister | | | | + +------+ + + | Sister | | | | + +------+ + + | Sister | | | | + +------+ + + Social History + +-------+ +--------+------+ [...] on file | | + + + Last Filed Vital Signs + + + [...] | | + + + + + Plan of Treatment +--------+---------+ + + + | Date | Type | Specialty | Care Team | Description | +--------+---------+ + + + | 09/10/ | Office | Geriatric Medicine | Holly Pack, | | | 2019 | Visit | | TOUR SALES REPRESENTATIVE [address] | | | | | | [address] [place], | | | | | | [place] [address] | | | | | | [phone] | | | | | | | | +--------+---------+ + + + | 09/29/ | Office | Urology | Holly Pack, | | | 2019 | Visit | | TOUR SALES REPRESENTATIVE [address] | | | | | | [address] [place], | | | | | | [place] [address] | | | | | | [phone] | | | | | | | | | | | | Toy Wild W, DO | | | | | | [address] | | | | | | [place] [address] | | | | | | [phone] | | | | | | | | +--------+---------+ + + + + + + + + | Health Maintenance | Due Date | Last | Comments | | | | Done | | + + + + + | Hepatitis C | | | | | Screening | 5 | | | + + + + + | Diabetic Eye Exam | | | | | | 3 | | | + + + + + | Diabetic Foot Exam | | | | | | 3 | | | + + + + + | Vaccine: Zoster (1 | | | | | of 2) | 5 | | | + + + + + | Colorectal Cancer | | 01/11/20 | | | Screening (FIT) | 5 | 14, | | | | | 04/20/19 | | | | | 14 | | + + + + + | Adult Annual | | | | | Wellness Visit | 9 | | | + + + + + | Vaccine: | | 11/08/19 | | | Pneumococcal 19-64 | 9 | 19 | | | (2 of 3 - PPSV23) | | | | + + + + + | Med Mgmt: INR | | 09/07/19 | | | | 0 | 20, | | | | | 09/02/19 | | | | | 20, | | | | | 08/23/19 | | | | | 20, | | | | | Addition | | | | | al | | | | | history | | | | | exists | | + + + + + | Vaccine: Influenza | | 11/08/19 | | | (#1) | 0 | 19, | | | | | 02/07/19 | | | | | 19, | | | | | 10/29/19 | | | | | 17, | | | | | Addition | | | | | al | | | | | history | | | | | exists | | + + + + + | Hemoglobin A1c | | 07/25/19 | | | Screening | 0 | 20, | | | | | 05/17/19 | | | | | 20, | | | | | 03/27/19 | | | | | 20, | | | | | Addition | | | | | al | | | | | history | | | | | exists | | + + + + + | Med Mgmt: HBA1C | | 07/25/19 | | | | 0 | 20, | | | | | 05/17/19 | | | | | 20, | | | | | 03/27/19 | | | | | 20, | | | | | Addition | | | | | al | | | | | history | | | | | exists | | + + + + + | Medication | | 09/07/19 | | | Management | 1 | 20 | | + + + + + | Med Mgmt: Cr | | 09/07/19 | | | | 1 | 20, | | | | | 08/06/19 | | | | | 20, | | | | | 07/26/19 | | | | | 20, | | | | | Addition | | | | | al | | | | | history | | | | | exists | | + + + + + | Med Mgmt: HCT | | 09/07/19 | | | | 1 | 20, | | | | | 08/06/19 | | | | | 20, | | | | | 07/25/19 | | | | | 20, | | | | | Addition | | | | | al | | | | | history | | | | | exists | | + + + + + | Med Mgmt: [id number] | | 09/07/19 | | | | 1 | 20, | | | | | 08/06/19 | | | | | 20, | | | | | 07/25/19 | | | | | 20, | | | | | Addition | | | | | al | | | | | history | | | | | exists | | + + + + + | Med Mgmt: K | | 09/07/19 | | | | 1 | 20, | | | | | 08/06/19 | | | | | 20, | | | | | 07/26/19 | | | | | 20, | | | | | Addition | | | | | al | | | | | history | | | | | exists | | + + + + + | Med Mgmt: PLT | | 09/07/19 | | | | 1 | 20, | | | | | 08/06/19 | | | | | 20, | | | | | 07/25/19 | | | | | 20, | | | | | Addition | | | | | al | | | | | history | | | | | exists | | + + + + + | Med Mgmt: RBC | | 09/07/19 | | | | 1 | 20, | | | | | 08/06/19 | | | | | 20, | | | | | 07/25/19 | | | | | 20, | | | | | Addition | | | | | al | | | | | history | | | | | exists | | + + + + + | Med Mgmt: WBC | | 09/07/19 | | | | 1 | 20, | | | | | 08/06/19 | | | | | 20, | | | | | 07/25/19 | | | | | 20, | | | | | Addition | | | | | al | | | | | history | | | | | exists | | + + + + + | Med Mgmt: HDL | | 01/05/20 | | | | 4 | 19, | | | | | 12/14/19 | | | | | 19, | | | | | 10/13/19 | | | | | 19, | | | | | Addition | | | | | al | | | | | history | | | | | exists | | + + + + + | Med Mgmt: LDL | | 01/05/20 | | | | 4 | 19, | | | | | 12/14/19 | | | | | 19, | | | | | 10/13/19 | | | | | 19, | | | | | Addition | | | | | al | | | | | history | | | | | exists | | + + + + + | Med Mgmt: Total | | 01/05/20 | | | Cholesterol | 4 | 19, | | | | | 12/14/19 | | | | | 19, | | | | | 10/13/19 | | | | | 19, | | | | | Addition | | | | | al | | | | | history | | | | | exists | | + + + + + | Med Mgmt: | | 01/05/20 | | | Triglycerides | 4 | 19, | | | | | 12/14/19 | | | | | 19, | | | | | 10/13/19 | | | | | 19, | | | | | Addition | | | | | al | | | | | history | | | | | exists | | + + + + + | Vaccine: | | 12/17/19 | | | Dtap/Tdap/Td (2 - | 5 | 15 | | | Td) | | | | + + + + + Procedures + +--------+ + + + | [...] | | n - | | | 08/01/ | | | 2020 | | | 6:34 | | | [...] | | | FICATI | | | ON?08/ | | | 01/202 | | | 0 | | | 06:33? | | | GR, | | | NORAH | | | | | | M?MRN: | | | | | | [id number] | | | [id number] | | | riteri | | | [...] | | | St. | | | [place] | | | y | | | [...] | | | St. | | | [place] | | | y H. | | [...] | | | St. | | | [place] | | | y H. | | [...] | | | [place] | | | Radiology Specialist | | | al | | [...] | | | [place] | | | Radiology Specialist | | | al | | [...] | | | [place], | | | TOUR SALES REPRESENTATIVE | | | Nurse | | | [...] | | | [phone] | | | [phone] | | | 03 | | | [...] [email or web address] | | | m | +---+--------+ + +--------+ + + + | POC PT/INR | Routin | 09/02/2019 | Atrial | Results for this | | FINGERSTICK | e | 1:38 PM | fibrillation with | procedure are in the | | | | PDT | RVR (HCC) | results section. | + +--------+ + + + | POC PT/INR | Routin | 08/23/2019 | Atrial | Results for this | | FINGERSTICK | e | 12:50 PM | fibrillation with | procedure are in the | | | | PDT | [facility] ([facility]) | results section. | + +--------+ + + + | XR CHEST PA AND | ESCOBAR | 08/06/2019 | | Results for this | | LATERAL | | 4:20 AM | | procedure are in the | | | | PDT | | results section. | + +--------+ + + + | ECG 12 LEAD | STAT | 08/06/2019 | | Results for this | | | | 3:53 AM | | procedure are in the | | | | PDT | | results section. | + +--------+ + + + | PROTIME INR | STAT | 08/06/2019 | | Results for this | | | | 3:46 AM | | procedure are in the | | | | PDT | | results section. | + +--------+ + + + | TROPONIN I | STAT | 08/06/2019 | | Results for this | | | | 3:46 AM | | procedure are in the | | | | PDT | | results section. | + +--------+ + + + | COMPREHENSIVE | STAT | 08/06/2019 | | Results for this | | METABOLIC PANEL | | 3:46 AM | | procedure are in the | | | | PDT | | results section. | + +--------+ + + + | CBC WITH | STAT | 08/06/2019 | | Results for this | | DIFFERENTIAL | | 3:46 AM | | procedure are in the | | | | PDT | | results section. | + +--------+ + + + | ED INFORMATION | Routin | 08/06/2019 | | | | EXCHANGE | e | 3:28 AM | | | | | | PDT | | | + +--------+ + + + +---+--------+ | | | | | Proced | | | ure | | | Note - | | | Richard, | | | Lab In | | | | | | [facility] | | | n - | | | | | | 2019 | | | 3:29 | | | AM PDT | | [...] | | | 0 | | | 03:27? | | | GR, | | | NORAH | | | | | | M?MRN: | | | | | | [id number] | | | [id number] | | | riteri | | | [...] | | | Center | | | 23 0 | | | [facility] | | | s | | | Medica | | | l | | | Center | | | 5 0 | | | [facility] | | | sd | | | Commun | | | ity | | | Hospit | | | al 1 0 | | | [facility] | | [place] | | | y | | | [...] | | | Pain | | | [place] | | | [...] | | | ations | | | [place] | | | 13, | | | 2020 | | | [facility] | [place] | | | y H. | | [...] | | | St. | | | [place] | | | y H. | | [...] | | | [place] | | | Radiology Specialist | | | al | | [...] | | | [place] | | | Radiology Specialist | | | al | | [...] | | | [place], | | | TOUR SALES REPRESENTATIVE | | | Nurse | | | [...] | | | /notif | | | [id number] | | | [phone] | | | [phone] | | | [phone] | | | [phone] | | | [phone] | | | fd | | | PLEASE | | | [...] [email or web address] | | | m | +---+--------+ + +--------+ +---+ + | POC GLUCOSE (NON | Routin | 07/26/2019 | | Results for this | | ORD) | e | 6:08 AM | | procedure are in the | | | | PDT | | results section. | + +--------+ +---+ + | MAGNESIUM | Routin | 07/26/2019 | | Results for this | | | e | 5:19 AM | | procedure are in the | | | | PDT | | results section. | + +--------+ +---+ + | RENAL FUNCTION PANEL | Routin | 07/26/2019 | | Results for this | | | e | 5:19 AM | | procedure are in the | | | | PDT | | results section. | + +--------+ +---+ + | POC GLUCOSE (NON | Routin | 07/25/2019 | | Results for this | | ORD) | e | 8:04 PM | | procedure are in the | | | | PDT | | results section. | + +--------+ +---+ + | POC GLUCOSE (NON | Routin | 07/25/2019 | | Results for this | | ORD) | e | 3:56 PM | | procedure are in the | | | | PDT | | results section. | + +--------+ +---+ + | TROPONIN I | Timed | 07/25/2019 | | Results for this | | | | 1:12 PM | | procedure are in the | | | | PDT | | results section. | + +--------+ +---+ + | POC GLUCOSE (NON | Routin | 07/25/2019 | | Results for this | | ORD) | e | 11:11 AM | | procedure are in the | | | | PDT | | results section. | + +--------+ +---+ + | ECG 12 LEAD | STAT | 07/25/2019 | | Results for this | | | | 9:27 AM | | procedure are in the | | | | PDT | | results section. | + +--------+ +---+ + | TROPONIN I | Timed | 07/25/2019 | | Results for this | | | | 9:26 AM | | procedure are in the | | | | PDT | | results section. | + +--------+ +---+ + | POC GLUCOSE (NON | Routin | 07/25/2019 | | Results for this | | ORD) | e | 6:09 AM | | procedure are in the | | | | PDT | | results section. | + +--------+ +---+ + | RENAL FUNCTION PANEL | Routin | 07/25/2019 | | Results for this | | | e | 5:49 AM | | procedure are in the | | | | PDT | | results section. | + +--------+ +---+ + | MAGNESIUM | Routin | 07/25/2019 | | Results for this | | | e | 5:49 AM | | procedure are in the | | | | PDT | | results section. | + +--------+ +---+ + | CBC WITH | Routin | 07/25/2019 | | Results for this | | DIFFERENTIAL | e | 5:49 AM | | procedure are in the | | | | PDT | | results section. | + +--------+ +---+ + | HEMOGLOBIN A1C | Routin | 07/25/2019 | | Results for this | | | e | 5:49 AM | | procedure are in the | | | | PDT | | results section. | + +--------+ +---+ + | ECG 12 LEAD | STAT | 07/24/2019 | | Results for this | | | | 11:54 PM | | procedure are in the | | | | PDT | | results section. | + +--------+ +---+ + | POC GLUCOSE (NON | Routin | 07/24/2019 | | Results for this | | ORD) | e | 8:50 PM | | procedure are in the | | | | PDT | | results section. | + +--------+ +---+ + | POC GLUCOSE (NON | Routin | 07/24/2019 | | Results for this | | ORD) | e | 4:14 PM | | procedure are in the | | | | PDT | | results section. | + +--------+ +---+ + | POC GLUCOSE (NON | Routin | 07/24/2019 | | Results for this | | ORD) | e | 11:19 AM | | procedure are in the | | | | PDT | | results section. | + +--------+ +---+ + | POC GLUCOSE (NON | Routin | 07/24/2019 | | Results for this | | ORD) | e | 6:28 AM | | procedure are in the | | | | PDT | | results section. | + +--------+ +---+ + | MAGNESIUM | Routin | 07/24/2019 | | Results for this | | | e | 5:40 AM | | procedure are in the | | | | PDT | | results section. | + +--------+ +---+ + | CBC WITH | Routin | 07/24/2019 | | Results for this | | DIFFERENTIAL | e | 5:40 AM | | procedure are in the | | | | PDT | | results section. | + +--------+ +---+ + | BASIC METABOLIC | Routin | 07/24/2019 | | Results for this | | PANEL | e | 5:40 AM | | procedure are in the | | | | PDT | | results section. | + +--------+ +---+ + | POC GLUCOSE (NON | Routin | 07/24/2019 | | Results for this | | ORD) | e | 2:24 AM | | procedure are in the | | | | PDT | | results section. | + +--------+ +---+ + | LEGIONELLA AG, EIA, | Routin | 07/23/2019 | | Results for this | | QUAL, URINE | e | 11:36 PM | | procedure are in the | | | | PDT | | results section. | + +--------+ +---+ + | CORONAVIRUS | Routin | 07/23/2019 | | Results for this | | (COVID-19) NAAT | e | 7:49 PM | | procedure are in the | | | | PDT | | results section. | + +--------+ +---+ + | CT ABDOMEN PELVIS W | ESCOBAR | 07/23/2019 | | Results for this | | CONTRAST | | 6:33 PM | | procedure are in the | | | | PDT | | results section. | + +--------+ +---+ + | CT HEAD WO CONTRAST | ESCOBAR | 07/23/2019 | | Results for this | | | | 6:31 PM | | procedure are in the | | | | PDT | | results section. | + +--------+ +---+ + | CULTURE, BLOOD | STAT | 07/23/2019 | | Results for this | | | | 5:57 PM | | procedure are in the | | | | PDT | | results section. | + +--------+ +---+ + | B TYPE NATRIURETIC | Routin | 07/23/2019 | | Results for this | | PEPTIDE | e | 5:49 PM | | procedure are in the | | | | PDT | | results section. | + +--------+ +---+ + | PROTIME INR | STAT | 07/23/2019 | | Results for this | | | | 5:49 PM | | procedure are in the | | | | PDT | | results section. | + +--------+ +---+ + | TROPONIN I | STAT | 07/23/2019 | | Results for this | | | | 5:49 PM | | procedure are in the | | | | PDT | | results section. | + +--------+ +---+ + | COMPREHENSIVE | STAT | 07/23/2019 | | Results for this | | METABOLIC PANEL | | 5:49 PM | | procedure are in the | | | | PDT | | results section. | + +--------+ +---+ + | CBC WITH | STAT | 07/23/2019 | | Results for this | | DIFFERENTIAL | | 5:49 PM | | procedure are in the | | | | PDT | | results section. | + +--------+ +---+ + | CULTURE, BLOOD | STAT | 07/23/2019 | | Results for this | | | | 5:48 PM | | procedure are in the | | | | PDT | | results section. | + +--------+ +---+ + | URINALYSIS WITH | STAT | 07/23/2019 | | Results for this | | MICROSCOPIC | | 5:23 PM | | procedure are in the | | | | PDT | | results section. | + +--------+ +---+ + | CULTURE, URINE | Add-On | 07/23/2019 | | Results for this | | | | 5:23 PM | | procedure are in the | | | | PDT | | results section. | + +--------+ +---+ + | XR CHEST AP PORTABLE | ESCOBAR | 07/23/2019 | | Results for this | | | | 5:13 PM | | procedure are in the | | | | PDT | | results section. | + +--------+ +---+ + | ECG 12 LEAD | Routin | 07/23/2019 | | Results for this | | | e | 3:54 PM | | procedure are in the | | | | PDT | | results section. | + +--------+ +---+ + | ED INFORMATION | Routin | 07/23/2019 | | | | EXCHANGE | e | 3:47 PM | | | | | | PDT | | | + +--------+ +---+ + +---+--------+ | | | | | Proced | | | ure | | | Note - | | | Richard, | | | Lab In | | | | | | [facility] | | | n - | | | 16/ | | | 2020 | | | 3:48 | | | [...] M?MRN: | | | | | | [id number] | | | [id number] | | | riteri | | | [...] | | | St. | | | [place] | | | y | | | [...] | | | St. | | | [place] | | | y H. | | [...] | | | St. | | | [place] | | | y H. | | [...] | | | [place] | | | Radiology Specialist | | | al | | [...] | | | [place] | | | Radiology Specialist | | | al | | [...] | | | [place], | | | TOUR SALES REPRESENTATIVE | | | Nurse | | | [...] [email or web address] | | | m | +---+--------+ + +--------+ +---+ + | URINALYSIS WITH | STAT | 07/15/2019 | | Results for this | | MICROSCOPIC | | 1:28 PM | | procedure are in the | | | | PDT | | results section. | + +--------+ +---+ + | C-REACTIVE PROTEIN | STAT | 07/15/2019 | | Results for this | | | | 12:20 PM | | procedure are in the | | | | PDT | | results section. | + +--------+ +---+ + | PROTIME INR | STAT | 07/15/2019 | | Results for this | | | | 12:20 PM | | procedure are in the | | | | PDT | | results section. | + +--------+ +---+ + | LIPASE | STAT | 07/15/2019 | | Results for this | | | | 12:20 PM | | procedure are in the | | | | PDT | | results section. | + +--------+ +---+ + | COMPREHENSIVE | STAT | 07/15/2019 | | Results for this | | METABOLIC PANEL | | 12:20 PM | | procedure are in the | | | | PDT | | results section. | + +--------+ +---+ + | CBC WITH | STAT | 07/15/2019 | | Results for this | | DIFFERENTIAL | | 12:20 PM | | procedure are in the | | | | PDT | | results section. | + +--------+ +---+ + | ED INFORMATION | Routin | 07/15/2019 | | | | EXCHANGE | e | 12:14 PM | | | | | | PDT | | | + +--------+ +---+ + +---+--------+ | | | | | Proced | | | ure | | | Note - | | | Richard, | | | Lab In | | | | | | [facility] | | | n - | | | 07/14/ | | | 2019 | | | 12:15 | | | [...] | | | 12:14? | | | SIMÓN, | | | NORAH | | | | | | M?MRN: | | | | | | [id number] | | | [id number] | | | riteri | | | [...] | | [facility] | | | [place] | | | [place] | | | [...] | | | [place] | | | Radiology Specialist | | | al | | [...] | | | [place] | | | Radiology Specialist | | | al | | [...] | | | [place], | | | TOUR SALES REPRESENTATIVE | | | Nurse | | | [...] | | | [phone] | | | [phone] | | | 36 | | | [...] [email or web address] | | | m | +---+--------+ + +--------+ +---+ + | LABS - EXTERNAL SCAN | | 07/09/2019 | | Results for this | | | | 12:00 AM | | procedure are in the | | | | PDT | | results section. | + +--------+ +---+ + | POC GLUCOSE (NON | Routin | 07/06/2019 | | Results for this | | ORD) | e | 8:40 AM | | procedure are in the | | | | PDT | | results section. | + +--------+ +---+ + | URINALYSIS WITH | STAT | 07/06/2019 | | Results for this | | MICROSCOPIC | | 6:33 AM | | procedure are in the | | | | PDT | | results section. | + +--------+ +---+ + | CULTURE, URINE | STAT | 07/06/2019 | | Results for this | | | | 6:33 AM | | procedure are in the | | | | PDT | | results section. | + +--------+ +---+ + | ECG 12 LEAD | ESCOBAR | 07/06/2019 | | Results for this | | | | 6:23 AM | | procedure are in the | | | | PDT | | results section. | + +--------+ +---+ + | PROCALCITONIN, SERUM | Routin | 07/06/2019 | | Results for this | | | e | 5:58 AM | | procedure are in the | | | | PDT | | results section. | + +--------+ +---+ + | KETONES,SERUM | STAT | 07/06/2019 | | Results for this | | | | 5:58 AM | | procedure are in the | | | | PDT | | results section. | + +--------+ +---+ + | COMPREHENSIVE | STAT | 07/06/2019 | | Results for this | | METABOLIC PANEL | | 5:58 AM | | procedure are in the | | | | PDT | | results section. | + +--------+ +---+ + | CBC WITH | STAT | 07/06/2019 | | Results for this | | DIFFERENTIAL | | 5:58 AM | | procedure are in the | | | | PDT | | results section. | + +--------+ +---+ + | ED INFORMATION | Routin | 07/06/2019 | | | | EXCHANGE | e | 5:30 AM | | | | | | PDT | | | + +--------+ +---+ + +---+--------+ | | | | | Proced | | | ure | | | Note - | | | Richard, | | | Lab In | | | | | | [facility] | | | n - | | | 07/05/ | | | 2019 | | | 5:31 | | | AM PDT | | [...] | | | FICATI | | | ON?05/ | | | | | | 0 | | | 05:29? | | | GR, | | | NORAH | | | | | | M?MRN: | | | | | | [id number] | | | [id number] | | | riteri | | | [...] | | | On: | | | 05/27/ | | | 2020 | | | [...] | | | Center | | | 20 0 | | | [facility] | | [...] | | [facility] | | | [place] | | | [place] | | | [place] | | | ncy | | | Chief | | | Compla | | | int: | | | DIZZY | | | | | | Recent [...] | | | [place] | | | Radiology Specialist | | | al | | [...] | | | [place] | | | Radiology Specialist | | | al | | [...] | | | [place], | | | TOUR SALES REPRESENTATIVE | | | Nurse | | | [...] | | | /notif | | | [phone] | | | [phone] | | | [phone] | | | [phone] | | | [phone] | | | [id number] | | | [phone] | | | PLEASE | | | [...] [email or web address] | | | m | +---+--------+ + +--------+ +---+ + | POC GLUCOSE (NON | Routin | 07/05/2019 | | Results for this | | ORD) | e | 5:18 PM | | procedure are in the | | | | PDT | | results section. | + +--------+ +---+ + | POC GLUCOSE (NON | Routin | 07/05/2019 | | Results for this | | ORD) | e | 10:55 AM | | procedure are in the | | | | PDT | | results section. | + +--------+ +---+ + | POC GLUCOSE (NON | Routin | 07/05/2019 | | Results for this | | ORD) | e | 8:12 AM | | procedure are in the | | | | PDT | | results section. | + +--------+ +---+ + | CULTURE, BLOOD | STAT | 07/05/2019 | | Results for this | | | | 7:32 AM | | procedure are in the | | | | PDT | | results section. | + +--------+ +---+ + | CULTURE, BLOOD | STAT | 07/05/2019 | | Results for this | | | | 7:31 AM | | procedure are in the | | | | PDT | | results section. | + +--------+ +---+ + | MAGNESIUM | Routin | 07/05/2019 | | Results for this | | | e | 7:25 AM | | procedure are in the | | | | PDT | | results section. | + +--------+ +---+ + | CBC WITH | Routin | 07/05/2019 | | Results for this | | DIFFERENTIAL | e | 7:25 AM | | procedure are in the | | | | PDT | | results section. | + +--------+ +---+ + | BASIC METABOLIC | Timed | 07/05/2019 | | Results for this | | PANEL | | 7:25 AM | | procedure are in the | | | | PDT | | results section. | + +--------+ +---+ + | POC GLUCOSE (NON | Routin | 07/05/2019 | | Results for this | | ORD) | e | 7:01 AM | | procedure are in the | | | | PDT | | results section. | + +--------+ +---+ + | POC GLUCOSE (NON | Routin | 07/05/2019 | | Results for this | | ORD) | e | 3:25 AM | | procedure are in the | | | | PDT | | results section. | + +--------+ +---+ + | POC GLUCOSE (NON | Routin | 07/04/2019 | | Results for this | | ORD) | e | 9:34 PM | | procedure are in the | | | | PDT | | results section. | + +--------+ +---+ + | POC GLUCOSE (NON | Routin | 07/04/2019 | | Results for this | | ORD) | e | 5:03 PM | | procedure are in the | | | | PDT | | results section. | + +--------+ +---+ + | MISC LAB REFERRAL | Routin | 07/04/2019 | | Results for this | | | e | 2:35 PM | | procedure are in the | | | | PDT | | results section. | + +--------+ +---+ + | MISC LAB FEE | Routin | 07/04/2019 | | Results for this | | | e | 2:35 PM | | procedure are in the | | | | PDT | | results section. | + +--------+ +---+ + | POC GLUCOSE (NON | Routin | 07/04/2019 | | Results for this | | ORD) | e | 11:07 AM | | procedure are in the | | | | PDT | | results section. | + +--------+ +---+ + | POC GLUCOSE (NON | Routin | 07/04/2019 | | Results for this | | ORD) | e | 7:46 AM | | procedure are in the | | | | PDT | | results section. | + +--------+ +---+ + | CBC WITH | Timed | 07/04/2019 | | Results for this | | DIFFERENTIAL | | 4:11 AM | | procedure are in the | | | | PDT | | results section. | + +--------+ +---+ + | BASIC METABOLIC | Timed | 07/04/2019 | | Results for this | | PANEL | | 4:11 AM | | procedure are in the | | | | PDT | | results section. | + +--------+ +---+ + | CT ANGIOGRAM | ESCOBAR | 07/03/2019 | | Results for this | | PULMONARY | | 10:44 PM | | procedure are in the | | | | PDT | | results section. | + +--------+ +---+ + | POC GLUCOSE (NON | Routin | 07/03/2019 | | Results for this | | ORD) | e | 9:03 PM | | procedure are in the | | | | PDT | | results section. | + +--------+ +---+ + | POC GLUCOSE (NON | Routin | 07/03/2019 | | Results for this | | ORD) | e | 6:12 PM | | procedure are in the | | | | PDT | | results section. | + +--------+ +---+ + | MRSA NAAT | STAT | 07/03/2019 | | Results for this | | | | 2:29 PM | | procedure are in the | | | | PDT | | results section. | + +--------+ +---+ + | URINALYSIS WITH | STAT | 07/03/2019 | | Results for this | | MICROSCOPIC | | 1:13 PM | | procedure are in the | | | | PDT | | results section. | + +--------+ +---+ + | CULTURE, URINE | STAT | 07/03/2019 | | Results for this | | | | 1:13 PM | | procedure are in the | | | | PDT | | results section. | + +--------+ +---+ + | LACTIC ACID | STAT | 07/03/2019 | | Results for this | | | | 12:31 PM | | procedure are in the | | | | PDT | | results section. | + +--------+ +---+ + | CULTURE, BLOOD | STAT | 07/03/2019 | | Results for this | | | | 11:32 AM | | procedure are in the | | | | PDT | | results section. | + +--------+ +---+ + | RESPIRATORY VIRUS | STAT | 07/03/2019 | | Results for this | | ANTIGENS PROFILE | | 11:05 AM | | procedure are in the | | | | PDT | | results section. | + +--------+ +---+ + | CORONAVIRUS | STAT | 07/03/2019 | | Results for this | | (COVID-19) NAAT | | 11:05 AM | | procedure are in the | | | | PDT | | results section. | + +--------+ +---+ + | CULTURE, BLOOD | STAT | 07/03/2019 | | Results for this | | | | 10:50 AM | | procedure are in the | | | | PDT | | results section. | + +--------+ +---+ + | LACTIC ACID | STAT | 07/03/2019 | | Results for this | | | | 10:48 AM | | procedure are in the | | | | PDT | | results section. | + +--------+ +---+ + | XR CHEST AP PORTABLE | ESCOBAR | 07/03/2019 | | Results for this | | | | 10:41 AM | | procedure are in the | | | | PDT | | results section. | + +--------+ +---+ + | ECG 12 LEAD | STAT | 07/03/2019 | | Results for this | | | | 10:12 AM | | procedure are in the | | | | PDT | | results section. | + +--------+ +---+ + | D-DIMER | Add-On | 07/03/2019 | | Results for this | | | | 10:08 AM | | procedure are in the | | | | PDT | | results section. | + +--------+ +---+ + | MAGNESIUM | Add-On | 07/03/2019 | | Results for this | | | | 10:08 AM | | procedure are in the | | | | PDT | | results section. | + +--------+ +---+ + | PROCALCITONIN, SERUM | Add-On | 07/03/2019 | | Results for this | | | | 10:08 AM | | procedure are in the | | | | PDT | | results section. | + +--------+ +---+ + | B TYPE NATRIURETIC | Add-On | 07/03/2019 | | Results for this | | PEPTIDE | | 10:08 AM | | procedure are in the | | | | PDT | | results section. | + +--------+ +---+ + | PROCALCITONIN, SERUM | STAT | 07/03/2019 | | Results for this | | | | 10:08 AM | | procedure are in the | | | | PDT | | results section. | + +--------+ +---+ + | PROTIME INR | STAT | 07/03/2019 | | Results for this | | | | 10:08 AM | | procedure are in the | | | | PDT | | results section. | + +--------+ +---+ + | TROPONIN I | STAT | 07/03/2019 | | Results for this | | | | 10:08 AM | | procedure are in the | | | | PDT | | results section. | + +--------+ +---+ + | COMPREHENSIVE | STAT | 07/03/2019 | | Results for this | | METABOLIC PANEL | | 10:08 AM | | procedure are in the | | | | PDT | | results section. | + +--------+ +---+ + | CBC WITH | STAT | 07/03/2019 | | Results for this | | DIFFERENTIAL | | 10:08 AM | | procedure are in the | | | | PDT | | results section. | + +--------+ +---+ + | ED INFORMATION | Routin | 07/03/2019 | | | | EXCHANGE | e | 10:06 AM | | | | | | PDT | | | + +--------+ +---+ + +---+--------+ | | | | | Proced | | | ure | | | Note - | | | Richard, | | | Lab In | | | | | | [place] | | | n - | | | 07/02/ | | | 2019 | | | 10:07 | | | AM PDT | | [...] | | | 0 | | | 10:06? | | | GR, | | | NORAH | | | | | | M?MRN: | | | | | | [id number] | | | [id number] | | | riteri | | | [...] | | | Center | | | 18 0 | | | [place] | | [...] | | | Years) | | | Apr | | | [...] | | [facility] | | | [place] | | | [place] | | | [...] | | | he | | | Recent | | | [...] | | | [place] | | | Radiology Specialist | | | al | | [...] | | | [place], | | | [employer]IVE | | | Nurse | | | [...] | | | /notif | | | y/1002 | | | 327e-[id number] | | | [id number] | | | [id number] | | | [id number] | | | [id number] | | | 2d | | | PLEASE | | | [...] [email or web address] | | | m | +---+--------+ from Last 3 Months Results ARRHYTHMIA MONITOR - EXTERNAL SCAN (09/08/2019 12:00 AM PDT) + + + | Narrative | Performed At | + + + | Ordered by an | | | unspecified provider. | | + + + Urinalysis With Microscopic (09/07/2019 7:31 AM PDT)Only the most recent of 5 results with in the time period is included. + + + + + + | [...] - 1.030 | [facility] | | | [place], | | | LABORATORY | | | [...] | | | Urine | performed at [facility] | | LABORATORY | | | | Breanna Maher;[place], [place] | | | | | | [phone] | | | | + + + + + + + + | Specimen | + + | Urine | + + + + + + + | Performing | Address | City/State/Zipcode | Phone Number | | Organization | | | | + + + + + | [facility] | [address] | [place] [address] | [phone] | + + + + + Troponin I (09/07/2019 7:26 AM PDT)Only the most recent of 6 results within the time cadence light is included. + + + + + + | Component | Value | Ref Range | Performed | Pathologist | | | | | At | Signature | + + + + + + | Troponin I | 0.019Comment: 0.04 | 0.00 - 0.04 | [facility] | | | | ng/mL or less [...] at | | | | | | [facility] [facility];[address] | | | | | | [address];[place] [address] | | | | + + + + + + + + | Specimen | + + | Blood | + + + + + + + | Performing | Address | City/State/Zipcode | Phone Number | | Organization | | | | + + + + + | [facility] | [address] | [place] [address] | [phone] | + + + + + PTT (09/07/2019 7:26 AM PDT) + + + + + + | Component | Value | Ref Range | Performed | Pathologist | | | | | At | Signature | + + + + + + | PTT | 34 (H)Comment: Testing | 23 - 32 seconds | [facility] | | | | performed at [facility];[address] | | LABORATORY | | | | [address];[place], [place] | | | | | | [address] | | | | + + + + + + + + | Specimen | + + | Blood | + + + + + + + | Performing | Address | City/State/Zipcode | Phone Number | | Organization | | | | + + + + + | [facility] | [address] | [place] [address] | [phone] | + + + + + Protime INR (09/07/2019 7:26 AM PDT)Only the most recent of 5 results within the time marilee od is included. + + + + + + | [...] | | | | | performed at [facility];[address] | | | | | | [address];[place], [place] | | | | | | [address] | | | | + + + + + + + + | Specimen | + + | Blood | + + + + + + + | Performing | Address | City/State/Zipcode | Phone Number | | Organization | | | | + + + + + | [facility] | [address] | [place] [address] | [phone] | + + + + + CBC with Differential (09/07/2019 7:26 AM PDT)Only the most recent of 10 results within time period is included. + + + + + + | [...] 0.02Comment: Testing | 0.00 - 0.10 | [facility] | | | Absolute | performed at [facility];[address] | [address] | LABORATORY | | | | [address];[place] | | | | | | [address] | | | | + + + + + + + + | Specimen | + + | Blood | + + + + + + + | Performing | Address | City/State/Zipcode | Phone Number | | Organization | | | | + + + + + | [facility] | [address] | [place] [address] | [phone] | + + + + + Comprehensive Metabolic Panel (09/07/2019 7:26 AM PDT)Only the most recent of 6 results wi thin the time period is included. + + + + + + | [...] | | | | | | MDRD IDNJ traceable | | | | | | equation.Testing | | | | | | performed at [facility] | | | | | | [facility];[place], [place] | | | | | | [address] | | | | + + + + + + + + | Specimen | + + | Blood | + + + + + + + | Performing | Address | City/State/Zipcode | Phone Number | | Organization | | | | + + + + + | [facility] | [address] | [place] [address] | [phone] | + + + + + B Type Natriuretic Peptide (09/07/2019 7:25 AM PDT)Only the most recent of 3 results withi n the time period is included. + + + + + + | Component | Value | Ref Range | Performed | Pathologist | | | | | At | Signature | + + + + + + | BNP | 34.86Comment: Testing | 0 - 100 pg/mL | [facility] | | | | performed at [facility];[address] | | LABORATORY | | | [address];[place], [place] | | | | | | [address] | | | | + + + + + + + + | Specimen | + + | Blood | + + + + + + + | Performing | Address | City/State/Zipcode | Phone Number | | Organization | | | | + + + + + | [facility] | [address] | [place] [address] | [phone] | + + + + + XR Chest AP Portable (09/07/2019 7:09 AM PDT)Only the most recent of 3 results within the time period is included. + + | Specimen | + + [...] Procedure Note | + + | Richard, [id number] - 09/07/2019 7:19 AM PDT | | [...] + ECG 12 lead (09/07/2019 6:41 AM PDT)Only the most recent of 7 results within the time marilee od is included. + + + + + + | [...] | | | | | ONLY, -COMPUTER ([id number]), | | | | | | health editor SANTHOSH VÁSQUEZ | | | | | | ([id number]) on 09/07/2019 | | | | | [...] | | | + +---------+ + + POCT PT/INR fingerstick (09/02/2019 1:38 PM PDT)Only the most recent of 2 results within t he time period is included. + +-------+ + + + | Component | Value | Ref Range | Performed | Pathologist | | | | | At | Signature | + +-------+ + + + | INR, POC | 1.1 | 0.9 - 1.2 | | | + +-------+ + + + + + | Specimen | + + | Blood | + + XR Chest PA and Lateral (08/06/2019 4:20 AM PDT) + + | Specimen | + + | | + + + + + | Impressions | Performed At | + + + | Negative chest. Signed by: Irina Taylor, Malia Sign | [facility] | | Date/Time: 08/06/2019 4:24 AM | | + + + + + + | Narrative | Performed At | + + + | CHEST PA AND LATERAL CLINICAL INFORMATION: Chest pain. | [facility] | | COMPARISON: XR CHEST AP PORTABLE (07/23/2019); CT ANGIOGRAM PULMONARY | | | W CONTRAST (07/03/2019); XR CHEST AP PORTABLE (07/03/2019); | | | FINDINGS: Heart, lungs and vessels normal. No pneumothorax, pleural | | | effusion or adenopathy. No significant bone abnormality. | | + + + + + | Procedure Note | + + | Richard, Rad Results In 08/06/2019 4:28 AM PDT | | CHEST PA AND LATERAL | | | | CLINICAL INFORMATION: | | Chest pain. | | | | COMPARISON: | | XR CHEST AP PORTABLE (07/23/2019); CT ANGIOGRAM PULMONARY W CONTRAST | | (07/03/2019); XR CHEST AP PORTABLE (07/03/2019); | | | | FINDINGS: | | Heart, lungs and vessels normal. No pneumothorax, pleural effusion or | | adenopathy. No significant bone abnormality. | | | | IMPRESSION: | | Negative chest. | | | | | | | | | | Signed by: Irina Taylor Paula | | Sign Date/Time: 08/06/2019 4:24 AM | + + + +---------+ + + | Performing | Address | City/State/Zipcode | Phone Number | | Organization | | | | + +---------+ + + | [facility] | | | | + +---------+ + + POC Glucose (07/26/2019 6:08 AM PDT)Only the most recent of 22 results within the time per iod is included. + + + + + + | Component | Value | Ref Range | Performed | Pathologist | | | | | At | Signature | + + + + + + | Glucose, | 96Comment: Testing | 65 - 99 mg/dL | [facility] | | | POC | performed at [facility];[address] | | LABORATORY | | | | [address];[place] | | | | | | [address] | | | | + + + + + + + + | Specimen | + + | | + + + + + + + | Performing | Address | City/State/Zipcode | Phone Number | | Organization | | | | + + + + + | [facility] | [address] | [place] [address] | [phone] | + + + + + Magnesium (07/26/2019 5:19 AM PDT)Only the most recent of 5 results within the time period is included. + + + + + + | Component | Value | Ref Range | Performed | Pathologist | | | | | At | Signature | + + + + + + | Magnesium | 1.9Comment: Testing | 1.7 - 2.4 mg/dL | [facility] | | | | performed at [facility];[address] | | LABORATORY | | | | [address];[place], [place] | | | | | | [address] | | | | + + + + + + + + | Specimen | + + | | + + + + + + + | Performing | Address | City/State/Zipcode | Phone Number | | Organization | | | | + + + + + | [facility] | [address] | [place] [address] | [phone] | + + + + + Renal Function Panel (07/26/2019 5:19 AM PDT)Only the most recent of 2 results within the time period is included. + + + + + + | [...] | >60Comment: GFR <60: | >60 | [facility] | | | GFR | CHRONIC KIDNEY [...] | | | | | performed at [facility], [address] | | | | | | [address], | | | | | | [place] [address] | | | | + + + + + + + + | Specimen | + + | Blood | + + + + + + + | Performing | Address | City/State/Zipcode | Phone Number | | Organization | | | | + + + + + | [facility] | [address] | [place] [address] | [phone] | + + + + + Hemoglobin A1C (07/25/2019 5:49 AM PDT) + + + + + + | Component | Value | Ref Range | Performed | Pathologist | | | | | At | Signature | + + + + + + | Hemoglobin | 8.9 (H)Comment: | 4.8 - 5.6 % | [facility] | | | A1c | Prediabetes: 5.7 [...] [address], | | | | | | [facility] [address], [facility] | | | | | | [address] | | | | + + + + + + + + | Specimen | + + | Blood | + + + + + + + | Performing | Address | City/State/Zipcode | Phone Number | | Organization | | | | + + + + + | [facility] | [address] | [place] [address] | [phone] | + + + + + Basic Metabolic Panel (07/24/2019 5:40 AM PDT)Only the most recent of 3 results within the time period is included. + + + + + + | [...] | | | | | performed at [facility], [address] | | | | | | [facility], | | | | | | [place] [address] | | | | + + + + + + + + | Specimen | + + | Blood | + + + + + + + | Performing | Address | City/State/Zipcode | Phone Number | | Organization | | | | + + + + + | [facility] | [address] | [place] [address] | [phone] | + + + + + Legionella, Ag, EIA, Qual, Urine (07/23/2019 11:36 PM PDT) + + + + + + | Component | Value | Ref Range | Performed | Pathologist | | | | | At | Signature | + + + + + + | L. | NegativeComment: | Negative | [facility] | | | pneumophila | Presumptive negative [...] | | | | | performed at [facility], | | | | | | [address], [address], | | | | | | [facility] [address] | | | | + + + [...] | + + + + + | [facility] | [address] | [place] [address] | [phone] | + + + + + Coronavirus (COVID-19) NAAT (07/23/2019 7:49 PM PDT)Only the most recent of 2 results with in the time period is included. + + + + + + | Component | Value | Ref Range | Performed | Pathologist | | | | | At | Signature | + + + + + + | SARS-CoV-2, | NEGATIVEComment: This | NEG | [facility] | | | NAAT | test was [...] | | | | | performed at [facility] | | | | | | [address];[place], [place] | | | | | | [address] | | | | + + + + + + + + | Specimen | + + | Tissue - Entire | | nasopharynx (body | | structure) | + + + + + + + | Performing | Address | City/State/Zipcode | Phone Number | | Organization | | | | + + + + + | [facility] | [address] | [place] [address] | [phone] | + + + + + CT [...] pelvis. | | | Signed by: Irina Arrington Irene Sign Date/Time: 07/23/2019 6:44 PM | | [...] + | Richard, Rad Results In 07/23/2019 6:48 PM PDT | | CT [...] + + | Performing | Address | City/State/[facility] | Phone Number | | [...] sinonasal disease. Signed by: Irina Ji, Kishan Sign | | | Date/Time: 07/23/2019 6:51 PM [...] | Richard, Rad Results In - 07/23/2019 6:55 PM PDT | | CT [...] | | | | Signed by: Irina Ji, Kishan | | Sign Date/Time: 07/23/2019 6:51 PM | + + + +---------+ + + | Performing | Address | City/State/Zipcode | Phone Number | | Organization | | | | + +---------+ + + | [facility] | | | | + +---------+ + + Culture, Blood (07/23/2019 5:57 PM PDT)Only the most recent of 6 results within the time ashley louis is included. + + + + + + | Component | Value | Ref Range | Performed | Pathologist | | | | | At | Signature | + + + + + + | Special | LAC | | [facility] | | | Requests | | | LABORATORY | | + + + + + + | Special | Testing performed at | | [facility] | | | Requests | [facility];[address] | | LABORATORY | | | | [place] [address] | | | | + + + + + + | RESULT | NO GROWTH 6 DAYS | | [facility] | | | | | | LABORATORY | | + + + + + + | RESULT | Testing performed at | | [facility] | | | | [facility], [address] [facility] | | LABORATORY | | | | [place] | | | | | | [id number]: Testing | | | | | | performed at [facility], [address] | | | | | [address] [place], [place] | | | | | | [address] | | | | + + + + + + + + | Specimen | + + | Blood - Peripheral | | blood specimen | | (specimen) | + + + + + + + | Performing | Address | City/State/Zipcode | Phone Number | | Organization | | | | + + + + + | [facility] | [address] | [place] [address] | [phone] | + + + + + Culture, Urine (07/23/2019 5:23 PM PDT)Only the most recent of 3 results within the time ashley louis is included. + + + + + + | [...] RESULT | Testing performed at | | [facility] | | | | [facility], [address] [facility] | | LABORATORY | | | | [place] | | | | | | [id number]: Testing | | | | | | performed at [facility], [address] | | | | | | [place], | | | | | | [place] [address] | | | | + + + [...] | + + + + + | [facility] | [address] | [place] [address] | [phone] | + + + + + C-Reactive Protein (07/15/2019 12:20 PM PDT) + + + + + + | Component | Value | Ref Range | Performed | Pathologist | | | | | At | Signature | + + + + + + | CRP | 0.6 (H)Comment: Testing | <0.5 mg/dL | [facility] | | | | performed at [facility];[address] | | LABORATORY | | | | [address];[place] | | | | | | [address] | | | | + + + + + + + + | Specimen | + + | Blood | + + + + + + + | Performing | Address | City/State/Zipcode | Phone Number | | Organization | | | | + + + + + | [facility] | [address] | [place] [address] | [phone] | + + + + + Lipase (07/15/2019 12:20 PM PDT) + + + + + + | Component | Value | Ref Range | Performed | Pathologist | | | | | At | Signature | + + + + + + | Lipase | 44Comment: Testing | 12 - 53 U/L | [facility] | | | | performed at [facility];[address] | | LABORATORY | | | | [address];[place], [place] | | | | | | [address] | | | | + + + + + + + + | Specimen | + + | Blood | + + + + + + + | Performing | Address | City/State/Zipcode | Phone Number | | Organization | | | | + + + + + | [facility] | [address] | [place] [address] | [phone] | + + + + + LABS - EXTERNAL SCAN (07/09/2019 12:00 AM PDT) + + + | Narrative | Performed At | + + + | Ordered by an | | | unspecified provider. | | + + + Procalcitonin (07/06/2019 5:58 AM PDT)Only the most recent of 3 results within the time bob crockett is included. + + + + + + | Component | Value | Ref Range | Performed | Pathologist | | | | | At | Signature | + + + + + + | PROCALCITON | <0.05Comment: | <0.5 ng/mL | [facility] | | | IN | INTERPRETIVE | | LABORATORY | | | | INFORMATION: | | | | | | PROCALCITONIN PCT <= | | | | | | 0.5 ng/mL: Low risk | | | | | | for progression to | | | | | | severe systemic | | | | | | bacterial infection | | | | | | (severe sepsis/septic | | | | | | shock). Does not | | | | | | exclude an infection, | | | | | | because localized | | | | | | infections may be | | | | | | associated with such low | | | | | | levels. If PCT is | | | | | | measured very early | | | | | | after bacterial | | | | | | challenge (usually <6 | | | | | | hours), results may | | | | | | still be low and | | | | | | should re-assess PCT | | | | | | 6-24 hours later. PCT | | | | | | >0.5 and <= 2 ng/mL: | | | | | | Moderate risk for | | | | | | progression to severe | | | | | | systemic infection | | | | | | (severe sepsis/septic | | | | | | shock). Other | | | | | | conditions are known | | | | | | to elevate PCT, patient | | | | | | should be closely | | | | | | monitored both | | | | | | clinically and by | | | | | | re-assessing PCT | | | | | | within 6-24 hours. PCT > | | | | | | 2 ng/mL: High | | | | | | likelihood for | | | | | | progression to severe | | | | | | systemic bacterial | | | | | | infection (severe | | | | | | sepsis/septic shock). | | | | | | PCT >= 10 ng/mL: | | | | | | High likelihood of | | | | | | severe sepsis or septic | | | | | | shock.Testing performed | | | | | | at [facility];[address] [facility] | | | | | | [facility];[place] [address] | | | | + + + + + + + + | Specimen | + + | Blood | + + + + + + + | Performing | Address | City/State/Zipcode | Phone Number | | Organization | | | | + + + + + | [facility] | [address] | [place] [address] | [phone] | + + + + + Ketones, Serum (07/06/2019 5:58 AM PDT) + + + + + + | Component | Value | Ref Range | Performed | Pathologist | | | | | At | Signature | + + + + + + | Ketones, | NEGATIVEComment: Testing | NEG | [facility] | | | Blood | performed at [facility];[address] | | LABORATORY | | | | [address];[place] | | | | | | [address] | | | | + + + + + + + + | Specimen | + + | Blood | + + + + + + + | Performing | Address | City/State/Zipcode | Phone Number | | Organization | | | | + + + + + | [facility] | [address] | [place] [address] | [phone] | + + + + + Misc Lab Test: (07/04/2019 2:35 PM PDT) + + + + + + | Component | Value | Ref Range | Performed | Pathologist | | | | | At | Signature | + + + + + + | TEST | COV2 | | [facility] | | | INFORMATION | | | LABORATORY | | + + + + + + | Reference | SENT TO | | [facility] | | | | | | [facility]ATORY | | + + + + + + | RESULT | SEPARATE REPORT TO | | [facility] | | | | FOLLOW, SEE MEDIA | | LABORATORY | | | | TABComment: Testing | | | | | | performed at [facility] | | | | | | [address];[place] | | | | | | [address] | | | | + + + + + + + + | Specimen | + + | | + + + + + + + | Performing | Address | City/State/Zipcode | Phone Number | | Organization | | | | + + + + + | [facility] | [address] | [place] [address] | [phone] | + + + + + [facility] lab fee (07/04/2019 2:35 PM PDT) + + + + + + | Component | Value | Ref Range | Performed | Pathologist | | | | | At | Signature | + + + + + + | TEST | [facility] | | [facility] | | | INFORMATION | | | LABORATORY | | + + + + + + | Reference | SENT TO [facility]: | | [facility] | | | | Testing performed at | | LABORATORY | | | | [facility];[address];[place] [address] | | | | + + + + + + + + | Specimen | + + | | + + + + + + + | Performing | Address | City/State/Zipcode | Phone Number | | Organization | | | | + + + + + | [facility] | [address] | [place] [address] | [phone] | + + + + + CT Angiogram Pulmonary w Contrast (07/03/2019 10:44 PM PDT) + + | Specimen | + + | | + + + + + | Impressions | Performed At | + + + | No acute cardiopulmonary disease. Lungs clear. No pulmonary | [facility] | | embolism. Signed by: Irina Atkinson, Rhys Sign Date/Time: | | | 07/03/2019 10:55 PM | | + + + + + + | Narrative | Performed At | + + + | CT ANGIOGRAM PULMONARY CLINICAL INFORMATION: Chest pain with | [facility] | | palpitations and atrial fibrillation. Elevated D-dimer. History | | | of COPD. COMPARISON: XR CHEST AP PORTABLE (07/03/2019); XR CHEST | | | AP PORTABLE (05/15/2019); XR CHEST PA AND LATERAL (04/13/2019); CTA CHEST | | | PULMONARY EMBOLISM W CONTRAST (09/21/2018); CTA CHEST PULMONARY | | | EMBOLISM W CONTRAST (10/23/2017); PROCEDURE: Thin-section images | | | of the entire chest after the administration of 56 ml Omnipaque 350 | | | intravenous contrast. 3D MIP thin slab images and 2D multiplanar | | | reconstructions performed. At least one of the following CT dose | | | optimization techniques were used: Automated exposure control; | | | Adjustment of mA and/or kV according to patient size; Use of | | | iterative reconstruction technique. FINDINGS: PULMONARY ARTERIES: | | | No pulmonary embolism. RIGHT VENTRICLE TO LEFT VENTRICLE RATIO: | | | Not applicable. (Maximum short axis diameter on axial image. | | | Applicable only when pulmonary embolism present. Abnormal greater | | | than or equal to 0.9.) CHEST Lungs, Pleura and Airways: No | | | significant pulmonary abnormality. No airway narrowing or | | | obstruction. No pleural effusion or pneumothorax. Mediastinum: No | | | significant pericardial, great vessel or esophageal abnormality. No | | | mediastinal mass. Lymph Nodes: No adenopathy. Upper Abdomen: No | | | significant abnormality in the visualized upper abdomen. BODY | | | WALL Soft Tissues: The soft tissues of the chest wall are | | | unremarkable. Bones: No acute fracture or vertebral end plate | | | destruction. No lytic or blastic lesion. | | + + + + + | Procedure Note | + + | Richard, Rad Results In - 07/03/2019 10:59 PM PDT | | CT ANGIOGRAM PULMONARY | | | | CLINICAL INFORMATION: | | Chest pain with palpitations and atrial fibrillation. Elevated | | D-dimer. History of COPD. | | | | COMPARISON: | | XR CHEST AP PORTABLE (07/03/2019); XR CHEST AP PORTABLE (05/15/2019); XR | | CHEST PA AND LATERAL (04/13/2019); CTA CHEST PULMONARY EMBOLISM W | | CONTRAST (09/21/2018); CTA CHEST PULMONARY EMBOLISM W CONTRAST | | (10/23/2017); | | | | PROCEDURE: | | Thin-section images of the entire chest after the administration of 56 | | ml Omnipaque 350 intravenous contrast. 3D MIP thin slab images and 2D | | multiplanar reconstructions performed. | | | | At least one of the following CT dose optimization techniques were | | used: Automated exposure control; Adjustment of mA and/or kV according | | to patient size; Use of iterative reconstruction technique. | | | | FINDINGS: | | PULMONARY ARTERIES: No pulmonary embolism. | | | | RIGHT VENTRICLE TO LEFT VENTRICLE RATIO: Not applicable. (Maximum short | | axis diameter on axial image. Applicable only when pulmonary embolism | | present. Abnormal greater than or equal to 0.9.) | | | | CHEST | | Lungs, Pleura and Airways: No significant pulmonary abnormality. No | | airway narrowing or obstruction. No pleural effusion or pneumothorax. | | Mediastinum: No significant pericardial, great vessel or esophageal | | abnormality. No mediastinal mass. | | Lymph Nodes: No adenopathy. | | Upper Abdomen: No significant abnormality in the visualized upper | | abdomen. | | | | BODY WALL | | Soft Tissues: The soft tissues of the chest wall are unremarkable. | | Bones: No acute fracture or vertebral end plate destruction. No lytic | | or blastic lesion. | | | | IMPRESSION: | | No acute cardiopulmonary disease. Lungs clear. No pulmonary embolism. | | | | | | | | Signed by: Irina Atkinson Zachary | | Sign Date/Time: 07/03/2019 10:55 PM | + + + +---------+ + + | Performing | Address | City/State/Zipcode | Phone Number | | Organization | | | | + +---------+ + + | [facility] | | | | + +---------+ + + MRSA NAAT (07/03/2019 2:29 PM PDT) + + + + + + | Component | Value | Ref Range | Performed | Pathologist | | | | | At | Signature | + + + + + + | SOURCE: | NARES(NOSE) | | [facility] | | | | | | LABORATORY | | + + + + + + | Result | NEGATIVEComment: Testing | [facility] | | | | | performed at [facility] | | | | | | [address];[place] | | | | | | [address] | | | | + + + + + + + + | Specimen | + + | Tissue - Both | | anterior nares (body | | structure) | + + + + + + + | Performing | Address | City/State/Zipcode | Phone Number | | Organization | | | | + + + + + | [facility] | [address] | [place] [address] | [phone] | + + + + + Lactic Acid (07/03/2019 12:31 PM PDT)Only the most recent of 2 results within the time marilee od is included. + + + + + + | Component | Value | Ref Range | Performed | Pathologist | | | | | At | Signature | + + + + + + | Lactate, | 3.1 (H)Comment: RESULT | 0.4 - 2.0 | [facility] | | | Serum | READ BACK BY: ZAYNAB | mmol/L | LABORATORY | | | | SEPSIS RN @1258 BY | | | | | | BHREAD BACK RESULTS | | | | | | VERIFIEDTesting | | | | | | performed at [facility];[address];[place] | | | | | | [address] | | | | + + + + + + + + | Specimen | + + | Blood | + + + + + + + | Performing | Address | City/State/Zipcode | Phone Number | | Organization | | | | + + + + + | [facility] | [address] | [place] [address] | [phone] | + + + + + Respiratory pathogen DENAE grissom (07/03/2019 11:05 AM PDT) + + + + + + | Component | Value | Ref Range | Performed | Pathologist | | | | | At | Signature | + + + + + + | Adenovirus | Not Detected | NOTDET | [facility] | | | DNA | | | LABORATORY | | + + + + + + | Coronavirus | Not Detected | NOTDET | [facility] | | | 229E | | | LABORATORY | | + + + + + + | Coronavirus | Not Detected | NOTDET | [facility] | | | [id number] | | | LABORATORY | | + + + + + + | Coronavirus | Not Detected | NOTDET | [facility] | | | [id number] | | | LABORATORY | | + + + + + + | Coronavirus | Not Detected | NOTDET | [facility] | | | [facility] | | | LABORATORY | | + + + + + + | Human | Not Detected | NOTDET | [facility] | | | Metapneumov | | | LABORATORY | | | irus | | | | | + + + + + + | Rhinovirus/ | Not Detected | NOTDET | [facility] | | | Enterovirus | | | LABORATORY | | + + + + + + | Influenza A | Not Detected | NOTDET | [facility] | | | | | | LABORATORY | | + + + + + + | Influenza B | Not Detected | NOTDET | [facility] | | | | | | LABORATORY | | + + + + + + | Parainfluen | Not Detected | NOTDET | [facility] | | | za 1 | | | LABORATORY | | + + + + + + | Parainfluen | Not Detected | NOTDET | [facility] | | | za 2 | | | LABORATORY | | + + + + + + | Parainfluen | Not Detected | NOTDET | [facility] | | | za 3 | | | LABORATORY | | + + + + + + | Parainfluen | Not Detected | NOTDET | [facility] | | | za 4 | | | LABORATORY | | + + + + + + | Respiratory | Not Detected | NOTDET | [facility] | | | Syncytial | | | LABORATORY | | | Virus | | | | | + + + + + + | Bordetella | Not Detected | NOTDET | [facility] | | | pertussis | | | LABORATORY | | | DNA | | | | | + + + + + + | Chlamydia | Not Detected | NOTDET | [facility] | | | pneumoniae | | | LABORATORY | | + + + + + + | Mycoplasma | Not Detected | NOTDET | [facility] | | | pneumoniae | | | LABORATORY | | + + + + + + | Interpretat | A negative FilmArray RP | | [facility] | | | ion: | result does not exclude | | LABORATORY | | | | the possibility of a | | | | | | viral or bacterial | | | | | | infection. Test results | | | | | | may also be affected by | | | | | | concurrent | | | | | | antiviral/antibacterial | | | | | | therapy or levels of | | | | | | organism in the specimen | | | | | | that are below the | | | | | | limit of detection for | | | | | | this test. Comment: | | | | | | Negative results in the | | | | | | setting of a respiratory | | | | | | illness may be due | | | | | | toinfection with | | | | | | pathogens that are not | | | | | | detected by this test or | | | | | | lowerrespiratory tract | | | | | | infection that is not | | | | | | detected by a | | | | | | nasopharyngeal | | | | | | swabspecimen. Testing | | | | | | performed by Molecular | | | | | | MethodologyTesting | | | | | | performed at [facility], [address] | | | | | [facility], | | | | | | [place] [address] | | | | + + + + + + + + | Specimen | + + | Body Fluid - Entire | | nasopharynx (body | | structure) | + + + + + + + | Performing | Address | City/State/Zipcode | Phone Number | | Organization | | | | + + + + + | [facility] | [address] | [place] [address] | [phone] | + + + + + D-Dimer (07/03/2019 10:08 AM PDT) + + + + + + | Component | Value | Ref Range | Performed | Pathologist | | | | | At | Signature | + + + + + + | D-DIM[facility] | 1.39 (H)Comment: D Dimer | 0.19 - 0.50 | [facility] | | | | results less than 0.50 | mg/L FEU | LABORATORY | | | | mg/L FEU may rule out | | | | | | DVT and PE. However, | | | | | | alllaboratory results | | | | | | should be interpreted in | | | | | | the context of all | | | | | | availableclinical, | | | | | | radiologic and | | | | | | laboratory | | | | | | information.Testing | | | | | | performed at [facility];[address] | [address];[place], [place] | | | | | | [address] | | | | + + + + + + + + | Specimen | + + | Blood | + + + + + + + | Performing | Address | City/State/Zipcode | Phone Number | | Organization | | | | + + + + + | [facility] | [address] | [place] [address] | [phone] | + + + + + from Last 3 Months Insurance + +--------+ +--------+ +---------+--------+ | Payer | Benefi | Subscriber | Effect | Phone | Address | Type | | | t Plan | ID | aissatou | | | | | | / | | Dates | | | | | | Group | | | | | | + +--------+ +--------+ +---------+--------+ | MEDICARE | MEDICA | [id number] | Effect | [phone] | | Medica | | | RE | | aissatou | 5 | | re | | | PART A | | for | | | | | | AND B | | all | | | | | | | | dates | | | | + +--------+ +--------+ +---------+--------+ | [facility] | [facility] | [id number] | 04/07/19 | [phone] | | Medica | | MEDICARE | COMMUN | | 20-Pre | 3 | | re | | | ITY | | sent | | | | | | PLAN | | | | | | | | DUAL | | | | | | | | COMPLE | | | | | | | | TE | | | | | | + +--------+ +--------+ +---------+--------+ + +--------+ +--------+ + + | Guarantor Name | Accoun | Relation to | Date | Phone | Billing Address | | | t Type | Patient | of | | | | | | | | | | + +--------+ +--------+ + + | Norah Gr | Person | Self [birth year] | [address] | | | al/Fam | | 1956 | [phone] | [address] | | | [place] | | | [address] (Home) | [address] | + +--------+ +--------+ + + | Norah Gr | Person | Self [birth year] | [address] | | | al/Fam | | 1956 | [phone] | [address] | | | [place] | | | 1 (Home) | [address] | | | | | | [phone] | | | | | | | 1 (Work) | | + +--------+ +--------+ + + Advance Directives + + + + + | Type | Date Recorded | Patient | Explanation | | | | Wildlife Refuge Specialist | | + + + + + | Power of | | | | | Brass Bobbin Winder | | | | + + + + + | Advance | 07/23/2019 4:24 | | | | Directive | PM | | | + + + + + + + + + + | Code Status | Date | Date | Comments | | | Activated | Inactivated | | + + + + + | Full Code | 07/23/2019 | 07/26/2019 | | | | 11:12 PM | 2:22 PM | | + + + + + + + + +---+ | | | | | + + + +---+ | Full Code | 07/03/2019 | 07/05/2019 | | | | 8:10 PM | 9:49 PM | | + + + +---+ + +---------+---+ | Orders discussed with: | Patient | | + +---------+---+ + + + +---+ | | | | | + + + +---+ | Full Code | 07/03/2019 | 07/03/2019 | | | by default | 4:43 PM | 8:09 PM | | | - TBD | | | | + + + +---+ + + + +---+ | | | | | + + + +---+ | Full Code | 05/15/2019 | 05/18/2019 | | | | 11:56 PM | 5:13 PM | | + + + +---+ + + + +---+ | | | | | + + + +---+ | Full Code | 01/04/2019 | 01/05/2019 | | | | 2:56 AM | 3:50 PM | | + + + +---+
--- OUTSIDE RECORDS SUMMARY | ~2019-09-09 | XMS | Encounter Summary ---
Demographics + + + | Address | [address] | | | [place] [address] | + + + | Home Phone | | + + + | Preferred Language | Unknown | + + + | Marital Status | | + + + | Hoahaoism Affiliation | 1027 | + + + [...] Sammi Kohler | ECON | [place] [address] | | + + + + + Care Team Providers + +------+ + | Care Dispatcher Maintenance Name | Role | Phone | + +------+ + | Mireya Pack NP | PCP | | + +------+ + Reason for Visit + +--------+ + | Reason | Onset | Comments | | | Date | | + +--------+ + | Home Health | 07/15/ | | | | 2020 | | + +--------+ + Encounter Details +--------+ + + + + | Date | Type | Department | Care Team | Description | +--------+ + + + + | 07/15/ | Telephone | [facility] | Mireya Pack, | Home Health | | 2020 | | [facility] [address] | [employer]CHO[employer] SU[employer]OR [address] | | | | | [address] | [address] [place], | | | | | [place], [place] | [place] [address] | | | | | [address] | [phone] | | | | | [phone] | | | +--------+ + + + [...] Telephone Encounter - Lucia Amos RN - 07/18/2019 12:25 PM PDTSee also TE dated tod yesy, 07/18/19. RN Mel notified of PCP's reply. elephone Encounter - Mireya Pack NP - 07/17/2019 2: 39 PM PDTAgree with HH notifying APS and rechecking on patient tomorrow elephone Encounter - Diane Hill RN - 07/17/2019 1:59 PM PDTTCH RN called to update the last BP taken of 201/108 ER sent pt home with his BP Pt is BP is over 200 with walking with Pt only about 6 feet Before walking BP is 150 Pt is having troubles with taking bubble backs. Each medication is individually packed. Can clinic order to have all meds together. BS was 331 and does not eat a diabetic diet. Requested that [facility] RN and PT send observations from home visits to this clinic. RN reporte d that she would do another visit with the pt tomorrow. [facility] RN is concerned that APS might need to be involved as pt seem to be less able to care for himself than he thinks. elephone Encounter - Diane Hill RN - 07/17/2019 9:27 AM PDTAttempted to contact. A message was left to con [facility]. elephone Encounter - Ema Zimmerman - 07/17/2019 8:44 AM PDTDestiny, is returning call for Home Health and would like a call back. Additional Call Details: Please call her back at [phone] elephone Encounter - Diane Viveros RN - 07/17/2019 8:32 AM PDTAttempted to contact. A message was left to cont [facility]. elephone Encounter - Saulo Palomares - 07/16/2019 4:56 PM PDTDestiny, is calling again because he has not receive d a call for Home Health and would like a call back. Additional Call Details: Destiny is calling again because patient is running high blood sug ars and high blood pressure. The blood sugar was 331. BP 201/108 for home health. Patient's pressure is running high and physical exertion is noted. Patient is tired after just a few s teps. elephone Encounter - Her man, Heidi Pryor - 07/16/2019 11:44 AM PDTDestiny [facility] calling to talk to RN Please call her back at [phone] Heidi Moody documented in this enco unter Plan of Treatment +--------+---------+ + + + | Date | Type | Specialty | Care Team | Description | +--------+---------+ + + + | 09/10/ | Office | Geriatric Medicine | Mireya Pack, | | | 2019 | Visit | | [employer] [address] | | | | | | [address] [place], | | | | | | [place] [address] | | | | | | [phone] | | | | | | | | +--------+---------+ + + + | 09/29/ | Office | Urology | Mireya Pack, | | | 2019 | Visit | | S[employer] SU[employer]OR [address] | | | | | | [address] [place], | | | | | | [place] [address] | | | | | | [phone] | | | | | | | | | | | | Toy Wild, DO | | | | | | [address] | | | | | | [place] [address] | | | | | | [phone] | | | | | | | [...]
--- OUTSIDE RECORDS SUMMARY | ~2019-09-09 | XMS | Encounter Summary ---
Demographics + + + | Address | [address] | | | [place] [address] | + + + | Home Phone | | + + + | Preferred Language | Unknown | + + + | Marital Status | | + + + | Jehovah'S Witness Affiliation | 1027 | + + + | Race | Unknown | + + + | Ethnic Group | Unknown | + + + Author + + + | Author | [facility] | | | and [place] | + + + | Organization | [facility] | | | and [place] | + + + | Address | Unknown | + + + | Phone | Unavailable | + + + Support + + + + + | Name | Relationship | Address | Phone | + + + + + | Sammi Kohler | ECON | [place] [address] | | + + + + + Care Team Providers + +------+ + | Care Manager Bank Name | Role | Phone | + +------+ + PCP | Unavailable | + +------+ + Encounter Details +--------+ + + + + | Date | Type | Department | Care Team | Description | +--------+ + + + + | 12/05/ | Emergency | [facility] | Breanne Hurtado, | Left sided numbness; | | 2015 | | [facility] | DO [address] | Acute | | | | EMERGENCY CENTER | [place] [address] | nonintractable | | | | [address] | [phone] | headache, | | | | [place], [place] | | unspecified headache | | | | [address] | | type; Paroxysmal | | | | [phone] | | atrial fibrillation | | | | | | ([facility]); History of | | | | | | arterial ischemic | | | | | | stroke | +--------+ + + + + Social [...] ED Notes Conversion Transaction, Provider Unknown - 12/05/2014 3:23 AM PDTFormatting of this note m ight be different from the original. ED Notes by Yamileth Harvey RN at 12/05/14322 Author: Yamileth Harvey RN Service: (none) Author Type: Registered Nurse Filed: 12/05/14322 Date of Service: 12/05/14322 Status: Signed Printed Circuit Board Preassembler: Yamileth Harvey RN (Registered Nurse) Report received from EVE Contreras RN 12/05/14322 onver ivana Transaction, Provider Unknown - 12/05/2014 1:19 AM PDT ED Notes by José Luis Marti RN at 12/05/14118 Author: José Luis Marti RN Service: (none) Author Type: Registered Nurse Filed: 12/05/14119 Date of Service: 12/05/14118 Status: Signed Printed Circuit Board Preassembler: José Luis Marti RN (Registered Nurse) Bedside Report given to Diane Marti RN 12/05/14119 onver ivana Transaction, Provider Unknown - 12/05/2014 1:18 AM PDT ED Notes by Diane Fischer RN at 12/05/14117 Author: Diane Fischer RN Service: (none) Author Type: Registered Nurse Filed: 12/05/14117 Date of Service: 12/05/14117 Status: Signed Printed Circuit Board Preassembler: Diane Fischer RN (Registered Nurse) BS Report from José Luis PRADO, Pt reporting numbness on L side. Diane Fischer RN 12/05/14117 oBreanne booth DO - 12/05/2014 12:29 AM PDTFormatting of this note might be different from the o riginal. ED Provider Notes by Breanne Hurtado DO at 12/05/1428 Author: Breanne Hurtado DO Service: Emergency Department Author Type: Physician Filed: 12/05/141902 Date of Service: 12/05/1428 Status: Signed Printed Circuit Board Preassembler: Breanne Hurtado DO (Physician) [facility] Department of Emergency Medicine 12:30 AM History of Present Illness Patient Identification Kevyn Guzman is a 58 y.o. male. Patient information was obtained from patient. History/Exam limitations: none. Patient presented to the Emergency Department by: Car Chief Complaint Chief Complaint Patient presents with Facial Numbness seen this am for same. 58 y.o. male with a history of DM, A fib on Coumadin and stroke presents to the ED complain ing of RUBIN, neck pain, and L-sided numbness. He also does complain of a L-sided facial droop. Onset of symptoms was 45 minutes ago when the patient was getting up to go to the bathroom, with a constant course since that time. The patient describes the symptoms as moderate, and he rates his RUBIN as a 6/10. The patient reports nothing worsens symptoms, and nothing improv es symptoms. No care prior to arrival. Patient denies recent falls or injuries. Pt was see in this ER this morning by myself for back pain, which he said was mild and in h is mid back. However, he also had multiple other complaints. Patient had a normal CXR, and T -spine xray. As his pain was mild and he was denying chest pain, aortic dissection was felt unlikely. 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 Past Surgical History Procedure Laterality Date Unlisted procedure arthroscopy Knee surgery rt knee, patella Leg surgery LLE Colonoscopy Cholecystectomy, laparoscopic 09/12/2012 Procedure: LAPAROSCOPIC - CHOLECYSTECTOMY; Surgeon: Jevon Vargas DO; Location: [facility] MAIN OR; Service: General; 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; Abdominal surgery Cholecystectomy Skin cancer excision 10/10/2012 Procedure: EXCISION - SKIN CANCER; Surgeon: Sy Fierro MD; Location: [facility] MAIN OR ; Service: Plastics; Laterality: Left; upper arm and upper back w/frozen section Esophagogastroduodenoscopy 03/03/2013 Procedure: ESOPHAGOGASTRODUODENOSCOPY; Surgeon: Howie Gibson MD; Location: [facility] ENDOSCOPY; S ervice: Gastroenterology; 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; Colonoscopy 03/04/2013 Procedure: COLONOSCOPY; Surgeon: Howie Gibson MD; Location: [facility] ENDOSCOPY; Service: Gastroe nterology; 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; Upper gastrointestinal endoscopy Skin biopsy Hernia repair 07/03/2013 Procedure: LAPAROSCOPIC - HERNIA - INCISIONAL; Surgeon: Jevon Vargas DO; Location: [facility] MAIN OR; Service: General; 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; Skin lesion excision Left 05/05/2014 Procedure: EXCISION - LESION - FROZEN SECTION; Surgeon: Sy Fierro MD; Location: [facility] MAIN OR; Service: Plastics; Laterality: Left; forearm Prior to Admission medications Medication Sig Start Date End Date Taking? Authorizing Provider Albuterol Sulfate (VENTOLIN HFA IN) Inhale 2 puffs into the lungs as needed. 108 mcg/act Historical Provider Rupqb-S-Zbzhscolbkmis (BEANO) TABS Take 150 Units by mouth [...] 100 mg by mouth nightly. Historical Provider ovgipmecq-ppfutfte-jopmmqkvu hydroxide-simethicone Take 40 mLs by mouth daily [...] [facility] 10/16/14 12/15/14 CITLALY Romo Allergies Allergen Reactions Vitamin B12 Rash History Social History Marital Status: Spouse Name: N/A Number of Children: 1 Years of Education: s. RxCost Containment Occupational History disabled Social History Main Topics Smoking status: Never Smoker Smokeless tobacco: Never Used Alcohol Use: 0.0 oz/week 1-2 Cans of beer per week Comment: once week, occasionally Drug Use: No Sexual Activity: Not Currently Other Topics Concern Not on file Social History Narrative Lives alone x 1 wk, moved from [facility], , 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 2 falls [...] CV/Resp: Negative for chest pain Negative for koudcuirp-ln-ybjxdy Negative for cough GI: Negative for abdominal pain Negative for nausea Negative for vomiting Negative for constipation Negative for diarrhea Negative for black or bloody stools : Negative for urinary frequency Negative for pain with urination Musculoskeletal: Negative for back pain Positive for neck pain Negative for neck stiffness Skin: Negative for rash Neuro/Psych: Positive for headache Positive for L-sided numbness and L facial droop All other systems reviewed and negative except as noted. Physical Exam BP 166/81 mmHg | Pulse 74 | Temp(Src) 98.4 F (36.9 C) (Temporal) | Resp 17 | Wt 102.3 k g (225 lb 8.5 oz) | SpO2 97% Vital signs interpretation: Hypertensive, otherwise WNL. Pulse Oximetry interpretation: Normal General: Alert, in no apparent distress quite anxious appearing however Eyes: Normal inspection, PERRL, non-icteric, EOM's intact ENT: Ears normal Nose normal Pharynx normal, mucous membranes are moist. Neck: Normal inspection Supple, no lymphadenopathy Non-tender to palpation. Cardiovascular: Rate and rhythm normal No murmurs, clicks or rubs [...] No calf tenderness or palpable cords. Neuro: Alert. Oriented x3. 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 Intact finger to nose NIH score 1 for mild sensory deficit Medical Decision Making and Emergency Department Course ED Department Course Patient presents to ED with complaints of L-sided numbness. Exam is as above. My DDx includ es, but is not limited to: ICH considering sudden onset headache (although unlikely as low I NR this morning), ischemic stroke, and TIA vs other. Pt is having no back pain or chest pain so I do not suspect aortic dissection. Hypoglycemia is also on the differential, or focal s eizure. Will order CMP, CBC, EKG, EKG, head CT, Lamotrigine level, and reevaluate the patien t. Patient's condition is stable at this time. NIH stroke scale of 1. Will monitor the patient closely. I have not called a stroke team a ctivation as deficits are extremely minor. If symptoms worsen however and after CT scan allen n might be a candidate if INR < 1.7 and BP < 185/110. 1:25 AM Reviewed lab results. 1:35 AM Patient recheck. The patient states that his arms feel weak and his symptoms have w orsened. He reports that he has not been taking his Coumadin for 1 week as he has run out of his prescription. His neuro exam is unchanged. There is no weakness in his arms. Will order ASA and consult with neurologist. 1:[address] results, which show no acute intracranial abnormality. 2:00 AM Discussed patient's case with Dr. Gregory, neurologist, who recommends ordering a hea d MRA, brain MRI, and neck MRA. Will order this imaging. 5:14 AM Reviewed neck MRA, which showed no acute dissection. Vertebral artery origins not w ell seen due to patient motion. Otherwise, no evidence of hemodynamically significant stenos is in the extracranial arteries. Reviewed brain MRI and head MRA, which showed no acute infarct, intracranial mass lesion, o r hemorrhage. Patent intracranial arteries. 5:45 AM. Patient reevaluation. The patient was able to ambulate without difficulty. Patient is stable and feeling better at this time. I discussed all ED results and my clinical impre ssion with the patient. I advised patient to follow up with their PCP and we discussed the emergent signs and symptoms that would necessitate a return to ED. The patient voices unders tanding and agrees with the plan. All questions and concerns addressed to the best of my ab ility. Will discharge home with Rx for Coumadin. The patient agrees to return to the ED imm ediately if any problems or concerns. Medications aspirin chewable tablet 324 mg (324 mg Oral Given 12/05/14 0559) gadobenate dimeglumine (MULTIHANCE) injection 20.46 mL (20 mLs Intravenous Given 12/05/14 0 351) warfarin (COUMADIN) tablet 5 mg (5 mg Oral Given 12/05/14511) Records Reviewed Old medical records. Nursing notes. Nursing notes. Nursing notes reviewed for chief complaint, medications, clinical presentati on and vital signs. Old ED records reviewed (Using the electronic record system of [facility], I car efully reviewed the records with regard to the past medical/surgical history, previous medic ations, and allergies). Previous ED visits for similar and unrelated complaints. Laboratory Evaluation Results Procedure Component Value Ref Range Date/Time Comprehensive metabolic panel [[id number]] (Abnormal) Collected: 12/05/1449 Order Status: Completed Specimen Information: Blood Updated: 12/05/14119 SODIUM 139 135 - 143 mmol/L POTASSIUM 3.8 3.5 - 4.9 mmol/L CHLORIDE 102 99 - 109 mmol/L CO2 31 23 - 32 mmol/L ANION GAP AGAP 10 5 - 20 mmol/L GLUCOSE 150 (H) 65 - 99 mg/dL BUN 22 8 - 25 mg/dL CREATININE 1.2 0.70 - 1.30 mg/dL BUN/CREAT 18 CALCIUM 8.9 8.5 - 10.5 mg/dL TOTAL PROTEIN 7.2 6.3 - 8.2 g/dL Albumin 3.3 (L) 3.6 - 5.0 g/dL GLOBULIN 3.9 1.3 - 4.9 g/dL A/G 0.8 (L) 1.0 - 2.4 TBIL 0.3 0.1 - 1.5 mg/dL ALK PHOS 112 35 - 115 U/L AST 20 10 - 45 U/L ALT 21 10 - 65 U/L EGFR >60 >60 mL/min/1.73m2 Protime [[id number]] Collected: 12/05/1449 Order Status: Completed Specimen Information: Blood Updated: 12/05/14114 INR 1.1 aPTT [[id number]] Collected: 12/05/1449 Order Status: Completed Specimen Information: Blood Updated: 12/05/14114 APTT 28 23 - 32 seconds CBC with differential [[id number]] (Abnormal) Collected: 12/05/1449 Order Status: Completed Specimen Information: Blood Updated: 12/05/14104 WBC 9.28 3.80 - 11.00 K/uL RBC 5.05 4.20 - 5.70 M/uL HGB 12.6 (L) 13.2 - 17.0 g/dL HCT 38.6 (L) 39.0 - 50.0 % MCV 76.4 (L) 80.0 - 100.0 fl MCH 25.0 (L) 27.0 - 34.0 pg MCHC 32.6 32.0 - 35.5 g/dL RDW SD 42.4 37 - 53 fl PLT 322 150 - 400 K/uL MPV 7.5 fl DIFF TYPE AUTOMATED NEUTROPHILS 50.15 % LYMPHOCYTES 34.73 % MONOCYTES 9.95 % EOSINOPHILS 4.33 % BASOPHILS 0.84 % NEUTROPHILS ABS 4.66 1.90 - 7.40 K/uL LYMPHOCYTES ABS 3.23 1.00 - 3.90 K/uL MONOCYTES ABS 0.92 (H) 0.00 - 0.80 K/uL EOSINOPHILS ABS 0.40 0.00 - 0.50 K/uL BASOPHILS ABS 0.08 0.00 - 0.10 K/uL Lamotrigine level [[id number]] Collected: 12/05/1449 Order Status: Sent Specimen Information: Blood Updated: 12/05/14100 I personally reviewed the lab results and they have been posted to the chart. Pertinent po sitive and negative findings have been addressed appropriately. EKG and Radiology Evaluation EKG performed at 57 Normal Sinus Rhythm 69 bpm. Normal axis Intervals normal No significant ST segment abnormalities Normal T wave morphology No acute ischemia. Interpreted by me at time of service Imaging Results MRA neck with and without contrast (Final result) Result time: 12/05/14 04:42:15 Preliminary result by Rad Results In Richard (12/05/14 04:42:15) Impression: 1. No acute dissection. 2. Vertebral artery origins not well seen due to patient motion. 3. Otherwise, no evidence of hemodynamically significant stenosis in the extracranial arter ies. RADIA Read by Barbara Beltre MD on Dec 05 2014 4:42AM Final result by Rad Results In Richard (12/05/14 04:42:08) Impression: 1. No acute dissection. 2. Vertebral artery origins not well seen due to patient motion. 3. Otherwise, no evidence of hemodynamically significant stenosis in the extracranial arter ies. RADIA Electronically signed by Barbara Beltre MD on Dec 05 2014 4:42AM Referring Provider Line: [phone] ID: [id number] Narrative: EXAM: MR ANGIOGRAM NECK EXAM DATE: 12/05/2014 03:51 AM. CLINICAL HISTORY: Left facial numbness. COMPARISON: Carotid Doppler ultrasound report from July 08, 2013. TECHNIQUE: Multiplanar, multisequence MRA sequences of the neck were performed. Other: An a xial T1 fat saturated sequence of the neck was also obtained. Post-processing: Multiplanar 3 D MIP reconstructions. IV Contrast: Without and with, 20 mL of MultiHance. Evaluation of ar terial stenosis is based on a NASCET method of measurement. FINDINGS: No abnormal T1 hyperintensity is demonstrated on the axial T1 fat saturated sequence to sug gest acute dissection or intramural hematoma. In the anterior circulation, the origins of the common carotid arteries are patent. The alphonso ateral common, internal, and external carotid arteries are patent. There is mild irregularit y at the bilateral carotid bifurcations. This results in approximately 30 to 40% stenosis of the origin of the right external carotid artery. In the posterior circulation, the origins of the vertebral arteries are not well delineated due to patient motion. Normal flow voids are demonstrated in the bilateral V2 and V3 segmen ts without hemodynamically significant stenosis. MRI brain w wo and MRA head (Final result) Result time: 12/05/14 04:30:43 Procedure changed from MRI brain without contrast Preliminary result by Rad Results In Richard (12/05/14 04:30:43) Impression: 1. No acute infarct, intracranial mass lesion, or hemorrhage. 2. Patent intracranial arteries. RADIA Read by Barbara Beltre MD on Dec 05 2014 4:30AM Final result by Rad Results In Richard (12/05/14 04:30:37) Impression: 1. No acute infarct, intracranial mass lesion, or hemorrhage. 2. Patent intracranial arteries. RADIA Electronically signed by Barbara Beltre MD on Dec 05 2014 4:30AM Referring Provider Line: [phone] ID: [id number] Narrative: EXAMS: MRI AND MRA BRAIN EXAM DATE: 12/05/2014 03:51 AM. CLINICAL HISTORY: Left-sided facial numbness. COMPARISON: Brain MRI and MRA of the head from July 08, 2013. TECHNIQUE: MRI: Multiplanar, multisequence T1-weighted and fluid-sensitive MRI sequences of the brain were performed. Sequences optimized for routine evaluation. Other: None. Post-pro cessing: None. IV Contrast: With and without, 20 mL MultiHance. MRA: Multiplanar, multisequence T1-weighted and fluid-sensitive MRA sequences of the brain were performed. Other: None. Post-processing: Multiplanar 3D MIP reconstructions. IV Contra st: None. FINDINGS: MRI: Brain Volume: Normal for age. Parenchyma/Dura: No masses, infarcts, or hemorrhage. Mild scattered nonspecific punctate T2 hyperintense foci are again demonstrated in the subcortical and deep white matter primarily in the frontal lobes. These foci do not enhance after contrast administration and have not progressed since the prior exam. Ventricles/Cisterns: Normal. No hydrocephalus. Sinuses: There is persistent severe mucosal thickening in the left frontal sinus. The air-f luid level in the right frontal sinus has resolved. The orbits and mastoid sinuses are unrem arkable. Bones: Normal. Other: There is normal contrast opacification in the dural venous sinuses. MRA: The bilateral distal internal carotid arteries are patent from the superior cervical to the supraclinoid portions. The bilateral A1, M1, and M2 segments are patent. There is a triplic ated anterior cerebral artery, a normal variant. In the posterior circulation, the bilateral V4 segments are codominant and patent. The PICA s are patent. The basilar artery is widely patent to its terminus. Normal flow voids are dem onstrated in the bilateral superior cerebellar and posterior cerebral arteries. Small bilate ral posterior communicating arteries are suggested. CT Head Non-Contrast (Final result) Result time: 12/05/14 01:46:30 Preliminary result by Rad Results In Richard (12/05/14 01:46:30) Impression: 1. No acute intracranial abnormality. RADIA Read by Hermes Lopez MD on Dec 05 2014 1:46AM Final result by Rad Results In Richard (12/05/14 01:46:26) Impression: 1. No acute intracranial abnormality. RADIA Electronically signed by Hermes Lopez MD on Dec 05 2014 1:46AM Referring Provider Line: [phone] ID: [id number] Narrative: EXAM: CT HEAD EXAM DATE: 12/05/2014 01:31 AM. CLINICAL HISTORY: Headache. COMPARISON: 11/16/2014. TECHNIQUE: Multiaxial CT images were obtained from the foramen magnum to the vertex. IV con trast: None. Reformats: None. FINDINGS: Parenchyma: No intraparenchymal hemorrhage. No evidence of mass, midline shift or CT findin gs of infarction. Morrissey-white differentiation is distinct. Extraaxial Spaces: Normal for age. No subdural or epidural collections identified. Ventricles: Normal in size and position. Sinuses: Imaged paranasal sinuses, orbits, and mastoids show no significant abnormality. Bones: No evidence of fracture or calvarial defect. Other: None. ED Diagnoses Final diagnoses Left sided numbness Acute nonintractable headache, unspecified headache type Paroxysmal atrial fibrillation (HCC) History of arterial ischemic stroke Disposition: ED Disposition Discharge Condition at discharge: Stable Follow-up Information Follow up With Details Comments Contact Info Jerrell Gutiérrez, DO In 1 day For recheck and to get refills on your medications. [address] [facility] [address] [facility] Emergency Department If symptoms worsen [address] [facility] [address] Madi Gregory MD In 2 months to establish care [address] [facility] [address] Discharge Medications: Discharge Medication List as of 12/05/2014 6:06 AM START taking these medications Details !! warfarin (COUMADIN) 5 MG tablet Take 1 tablet by mouth daily., Starting 12/05/2014, Unti l 12/10/14, Print !! - Potential duplicate medications found. Please discuss with provider. This chart has been created using [employer] Speech Recognition software. The chart has been reviewed and there may still exist sound alike word errors. Procedures Additional Documentation Procedures Attending Note: Documentation assistance provided by Nara Briscoe (Kari). Information recorded by the scribe has been reviewed and validated by me. Troy laughlin with its contents. DO Breanne Marques DO 12/05/14 1903 documented in this e ncounter Plan of Treatment +--------+---------+ + + + | Date | Type | Specialty | Care Team | Description | +--------+---------+ + + + | 09/10/ | Office | Geriatric Medicine | Mireya Pack, | | 2019 | Visit | | [employer] [address] | | | | | | [address], | | | | | | [place] [address] | | | | | | [phone] | | | | | | | | +--------+---------+ + + + | 09/29/ | Office | Urology | Mireya Pack, | | 2019 | Visit | | [employer] [address] | | | | | | [address], | | | | | | [place] [address] | | | | | | [phone] | | | | | | | | | | | | Toy Wild W, DO | | | | | | [address] | | | | | | [place] [address] | | | | | | [phone] | | | | | | | | +--------+---------+ + + + documented as of this encounter Procedures + +--------+ + + + | Procedure Name | Priori | Date/Time | Associated Diagnosis | Comments | | | ty | | | | + +--------+ + + + | MRI ANGIOGRAM NECK W | Routin | 12/05/2014 | | Results for this | | WO CONTRAST | e | 3:51 AM | | procedure are in the | | | | PDT | | results section. | + +--------+ + + + | MRI BRAIN W WO | Routin | 12/05/2014 | | Results for this | | CONTRAST ANGIOGRAM | e | 3:51 AM | | procedure are in the | | HEAD WO CONTRAST | | PDT | | results section. | + +--------+ + + + | CT HEAD WO CONTRAST | Routin | 12/05/2014 | | Results for this | | | e | 1:30 AM | | procedure are in the | | | | PDT | | results section. | + +--------+ + + + | ECG 12 LEAD | Routin | 12/05/2014 | | Results for this | | | e | 12:58 AM | | procedure are in the | | | | PDT | | results section. | + +--------+ + + + | POC GLUCOSE | Routin | 12/05/2014 | | Results for this | | | e | 12:55 AM | | procedure are in the | | | | PDT | | results section. | + +--------+ + + + | EXTERNAL LAB: CBC | Routin | 12/05/2014 | | Results for this | | | e | 12:50 AM | | procedure are in the | | | | PDT | | results section. | + +--------+ + + + | LAMOTRIGINE LEVEL | Routin | 12/05/2014 | | Results for this | | | e | 12:50 AM | | procedure are in the | | | | PDT | | results section. | + +--------+ + + + | PTT | Routin | 12/05/2014 | | Results for this | | | e | 12:50 AM | | procedure are in the | | | | PDT | | results section. | + +--------+ + + + | PROTIME INR | Routin | 12/05/2014 | | Results for this | | | e | 12:50 AM | | procedure are in the | | | | PDT | | results section. | + +--------+ + + + | COMPREHENSIVE | Routin | 12/05/2014 | | Results for this | | METABOLIC PANEL | e | 12:50 AM | | procedure are in the | | | | PDT | | results section. | + +--------+ + + + documented in this encounter Results MRI Angiogram Neck w wo Contrast (12/05/2014 3:51 AM PDT) + + | Specimen | + + | | + + + + + | Impressions | Performed At | + + + | 1. No acute dissection. 2. Vertebral artery origins not well | | | seen due to patient motion. 3. Otherwise, no evidence of | | | hemodynamically significant stenosis in the extracranial arteries. | | | RADIA Electronically signed by Barbara Beltre MD on Nov | | | 2014 4:42AM Referring Provider Line: [phone] ID: [id number] | | + + + + + + | Narrative | Performed At | + + + | EXAM: MR ANGIOGRAM NECK EXAM DATE: 12/05/2014 03:51 AM. | | | CLINICAL HISTORY: Left facial numbness. COMPARISON: Carotid | | | Doppler ultrasound report from July 08, 2013. TECHNIQUE: | | | Multiplanar, multisequence MRA sequences of the neck were performed. | | | Other: An axial T1 fat saturated sequence of the neck was also | | | obtained. Post-processing: Multiplanar 3D MIP reconstructions. IV | | | Contrast: Without and with, 20 mL of MultiHance. Evaluation of | | | arterial stenosis is based on a NASCET method of measurement. | | | FINDINGS: No abnormal T1 hyperintensity is demonstrated on the | | | axial T1 fat saturated sequence to suggest acute dissection or | | | intramural hematoma. In the anterior circulation, the origins of | | | the common carotid arteries are patent. The bilateral common, | | | internal, and external carotid arteries are patent. There is mild | | | irregularity at the bilateral carotid bifurcations. This results in | | | approximately 30 to 40% stenosis of the origin of the right external | | | carotid artery. In the posterior circulation, the origins of the | | | vertebral arteries are not well delineated due to patient motion. | | | Normal flow voids are demonstrated in the bilateral V2 and V3 segments | | | without hemodynamically significant stenosis. | | + + + + + | Procedure Note | + + | Richard, Rad Conversion - 09/20/2018 10:29 PM PDT EXAM:MR ANGIOGRAM NECK EXAM DATE: | | 12/05/2014 03:51 AM. CLINICAL HISTORY: Left facial numbness. COMPARISON: Carotid Doppler | | ultrasound report from July 08, 2013. TECHNIQUE: Multiplanar, multisequence MRA | | sequences of the neck were performed. Other: An axial T1 fat saturated sequence of the | | neck was also obtained. Post-processing: Multiplanar 3D MIP reconstructions. IV | | Contrast: Without and with, 20 mL of MultiHance. Evaluation of arterial stenosis is | | based on a NASCET method of measurement. FINDINGS: No abnormal T1 hyperintensity is | | demonstrated on the axial T1 fat saturated sequence to suggest acute dissection or | | intramural hematoma. In the anterior circulation, the origins of the common carotid | | arteries are patent. The bilateral common, internal, and external carotid arteries are | | patent. There is mild irregularity at the bilateral carotid bifurcations. This results | | in approximately 30 to 40% stenosis of the origin of the right external carotid artery. | | In the posterior circulation, the origins of the vertebral arteries are not well | | delineated due to patient motion. Normal flow voids are demonstrated in the bilateral V2 | | and V3 segments without hemodynamically significant stenosis. IMPRESSION: 1. No acute | | dissection.2. Vertebral artery origins not well seen due to patient motion.3. Otherwise, | | no evidence of hemodynamically significant stenosis in the extracranial arteries. [facility] | | Electronically signed by Barbara Beltre MD on Dec 05 2014 4:42AM Referring | | Provider Line: [phone] ID: [id number] | | | |In the posterior circulation, the origins of the vertebral arteries are not well delineated due to patient motion. Normal flow voids are demonstrated in the bilateral V2 and V3 segmen ts without hemodynamically significant stenosis. | | | |IMPRESSION: | | | |1. No acute dissection. | |2. Vertebral artery origins not well seen due to patient motion. | |3. Otherwise, no evidence of hemodynamically significant stenosis in the extracranial arter ies. | | | |[facility] | | | | | | Electronically signed by Barbara Beltre MD on Dec 05 2014 4:42AM Referring Provider Line: [phone] ID: [id number] | + + MRI Brain W Wo MRA Head Wo (12/05/2014 3:51 AM PDT) + + | Specimen | + + | | + + + + + | Impressions | Performed At | + + + | 1. No acute infarct, intracranial mass lesion, or hemorrhage. 2. | | | Patent intracranial arteries. [facility] Electronically signed | | | by Barbara Beltre MD on Dec 05 2014 4:30AM Referring Provider | | | Line: [phone] ID: [id number] | | + + + + + + | Narrative | Performed At | + + + | EXAMS: MRI AND MRA BRAIN EXAM DATE: 12/05/2014 03:51 AM. | | | CLINICAL HISTORY: Left-sided facial numbness. COMPARISON: Brain | | | MRI and MRA of the head from July 08, 2013. TECHNIQUE: MRI: | | | Multiplanar, multisequence T1-weighted and fluid-sensitive MRI | | | sequences of the brain were performed. Sequences optimized for routine | | | evaluation. Other: None. Post-processing: None. IV Contrast: With and | | | without, 20 mL MultiHance. MRA: Multiplanar, multisequence | | | T1-weighted and fluid-sensitive MRA sequences of the brain were | | | performed. Other: None. Post-processing: Multiplanar 3D MIP | | | reconstructions. IV Contrast: None. FINDINGS: MRI: Brain Volume: | | | Normal for age. Parenchyma/Dura: No masses, infarcts, or | | | hemorrhage. Mild scattered nonspecific punctate T2 hyperintense foci | | | are again demonstrated in the subcortical and deep white matter | | | primarily in the frontal lobes. These foci do not enhance after | | | contrast administration and have not progressed since the prior | | | exam. Ventricles/Cisterns: Normal. No hydrocephalus. Sinuses: | | | There is persistent severe mucosal thickening in the left frontal | | | sinus. The air-fluid level in the right frontal sinus has resolved. | | | The orbits and mastoid sinuses are unremarkable. Bones: Normal. | | | Other: There is normal contrast opacification in the dural venous | | | sinuses. MRA: The bilateral distal internal carotid arteries | | | are patent from the superior cervical to the supraclinoid portions. | | | The bilateral A1, M1, and M2 segments are patent. There is a | | | triplicated anterior cerebral artery, a normal variant. In the | | | posterior circulation, the bilateral V4 segments are codominant and | | | patent. The PICAs are patent. The basilar artery is widely patent to | | | its terminus. Normal flow voids are demonstrated in the bilateral | | | superior cerebellar and posterior cerebral arteries. Small bilateral | | | posterior communicating arteries are suggested. | | + + + + + | Procedure Note | + + | Richard, Rad Conversion - 09/20/2018 10:29 PM PDT EXAMS:MRI AND MRA BRAIN EXAM DATE: | | 12/05/2014 03:51 AM. CLINICAL HISTORY: Left-sided facial numbness. COMPARISON: Brain MRI | | and MRA of the head from July 08, 2013. TECHNIQUE: MRI: Multiplanar, multisequence | | T1-weighted and fluid-sensitive MRI sequences of the brain were performed. Sequences | | optimized for routine evaluation. Other: None. Post-processing: None. IV Contrast: With | | and without, 20 mL MultiHance. MRA: Multiplanar, multisequence T1-weighted and | | fluid-sensitive MRA sequences of the brain were performed. Other: None. | | Post-processing: Multiplanar 3D MIP reconstructions. IV Contrast: None. | | FINDINGS:MRI:Brain Volume: Normal for age. Parenchyma/Dura: No masses, infarcts, or | | hemorrhage. Mild scattered nonspecific punctate T2 hyperintense foci are again | | demonstrated in the subcortical and deep white matter primarily in the frontal lobes. | | These foci do not enhance after contrast administration and have not progressed since | | the prior exam. Ventricles/Cisterns: Normal. No hydrocephalus. Sinuses: There is | | persistent severe mucosal thickening in the left frontal sinus. The air-fluid level in | | the right frontal sinus has resolved. The orbits and mastoid sinuses are unremarkable. | | Bones: Normal. Other: There is normal contrast opacification in the dural venous | | sinuses. MRA: The bilateral distal internal carotid arteries are patent from the | | superior cervical to the supraclinoid portions. The bilateral A1, M1, and M2 segments | | are patent. There is a triplicated anterior cerebral artery, a normal variant. In the | | posterior circulation, the bilateral V4 segments are codominant and patent. The PICAs | | are patent. The basilar artery is widely patent to its terminus. Normal flow voids are | | demonstrated in the bilateral superior cerebellar and posterior cerebral arteries. Small | | bilateral posterior communicating arteries are suggested. IMPRESSION: 1. No acute | | infarct, intracranial mass lesion, or hemorrhage.2. Patent intracranial arteries. [facility] | | Electronically signed by Barbara Beltre MD on Dec 05 2014 4:30AM Referring | | Provider Line: [phone] ID: [id number] | |Other: There is normal contrast opacification in the dural venous sinuses. | | | |MRA: | | | |The bilateral distal internal carotid arteries are patent from the superior cervical to the supraclinoid portions. The bilateral A1, M1, and M2 segments are patent. There is a triplic ated anterior cerebral artery, a normal variant. | | | |In the posterior circulation, the bilateral V4 segments are codominant and patent. The PICA s are patent. The basilar artery is widely patent to its terminus. Normal flow voids are dem onstrated in the bilateral superior | |cerebellar and posterior cerebral | |arteries. Small bilateral posterior communicating arteries are suggested. | | | |IMPRESSION: | | | |1. No acute infarct, intracranial mass lesion, or hemorrhage. | |2. Patent intracranial arteries. | | | |[facility] | | | | | | Electronically signed by Barbara Beltre MD on Dec 05 2014 4:30AM Referring Provider Line: [phone] ID: [id number] | + + CT Head wo Contrast (12/05/2014 1:30 AM PDT) + + | Specimen | + + | | + + + + + | Impressions | Performed At | + + + | 1. No acute intracranial abnormality. [facility] | | | Electronically signed by Hermes Lopez MD on Dec 05 2014 1:46AM | | | Referring Provider Line: [phone] ID: [id number] | | + + + + + + | Narrative | Performed At | + + + | EXAM: CT HEAD EXAM DATE: 12/05/2014 01:31 AM. CLINICAL | | | HISTORY: Headache. COMPARISON: 11/16/2014. TECHNIQUE: | | | Multiaxial CT images were obtained from the foramen magnum to the | | | vertex. IV contrast: None. Reformats: None. FINDINGS: Parenchyma: | | | No intraparenchymal hemorrhage. No evidence of mass, midline shift or | | | CT findings of infarction. Morrissey-white differentiation is distinct. | | | Extraaxial Spaces: Normal for age. No subdural or epidural | | | collections identified. Ventricles: Normal in size and position. | | | Sinuses: Imaged paranasal sinuses, orbits, and mastoids show no | | | significant abnormality. Bones: No evidence of fracture or | | | calvarial defect. Other: None. | | + + + + + | Procedure Note | + + | Richard, Rad Conversion - 09/20/2018 10:29 PM PDT EXAM:CT HEAD EXAM DATE: 12/05/2014 | | 01:31 AM. CLINICAL HISTORY: Headache. COMPARISON: 11/16/2014. TECHNIQUE: Multiaxial CT | | images were obtained from the foramen magnum to the vertex. IV contrast: None. | | Reformats: None. FINDINGS:Parenchyma: No intraparenchymal hemorrhage. No evidence of | | mass, midline shift or CT findings of infarction. Morrissey-white differentiation is | | distinct. Extraaxial Spaces: Normal for age. No subdural or epidural collections | | identified. Ventricles: Normal in size and position. Sinuses: Imaged paranasal sinuses, | | orbits, and mastoids show no significant abnormality. Bones: No evidence of fracture or | | calvarial defect. Other: None. IMPRESSION: 1. No acute intracranial abnormality. [facility] | | Electronically signed by Hermes Lopez MD on Dec 05 2014 1:46AM Referring Provider | | Line: [phone] ID: [id number] | |FINDINGS: | |Parenchyma: No intraparenchymal hemorrhage. [...] | |Other: None. | | | |IMPRESSION: | | | |1. No acute intracranial abnormality. | | | |[facility] | | | | Electronically signed by Hermes Lopez MD on Dec 05 2014 1:46AM Referring Provider Line: [phone] ID: [id number] | + + ECG 12 lead (12/05/2014 12:58 AM PDT) + + + + + [...] of | | | | | | 04-DEC-2014 | | | | | | 05:33,Premature atrial | | | | | | complexes are no longer | | | | | | PresentThis [...] (500), | | | | | | telegraph editor Keyla Gregory | | | | | | (25) on 12/05/2014 | | | | | | 4:47:44 AM | | | | + + + + + + + + | Specimen | + + | | + + + + + | Narrative | Performed At | + + + | Historically converted procedure from [facility] | EXTERNAL LAB | + + + + +---------+ + + | Performing | Address | City/State/Zipcode | Phone Number | | Organization | | | | + +---------+ + + | EXTERNAL LAB | | | | + +---------+ + + POC Glucose (12/05/2014 12:55 AM PDT) + + + + + + | Component | Value | Ref Range | Performed | Pathologist | | | | | At | Signature | + + + + + + | Glucose, | 150 (H)Comment: Testing | 65 - 99 mg/dL | EXTERNAL | | | Fingerstick | performed at [facility];[address] | | LAB | | | | [address];[place] | | | | | | [address] | | | | + + + + + + + + | Specimen | + + | | + + + +---------+ + + | Performing | Address | City/State/Zipcode | Phone Number | | Organization | | | | + +---------+ + + | EXTERNAL LAB | | | | + +---------+ + + Lamotrigine Level (12/05/2014 12:50 AM PDT) + + + + + + | Component | Value | Ref Range | Performed | Pathologist | | | | | At | Signature | + + + + + + | LAMOTRIGINE | <1.0 (L)Comment: THE | 3.0 - 14.0 | EXTERNAL | | | LVL | PROPOSED THERAPEUTIC | ug/mL | LAB | | | | RANGE FOR SEIZURE | | | | | | CONTROL IS 3.0 TO | | | | | | 14.0UG/ML. | | | | | | CONCENTRATIONS THAT | | | | | | EXCEED 15 UG/ML MAY | | | | | | CONTRIBUTE TO | | | | | | ADVERSEEFFECTS. | | | | | | PHARMOKINETICS VARIES | | | | | | WIDELY WITH CO | | | | | | MEDICATIONS | | | | | | AND/ORCOMPROMISED RENAL | | | | | | FUNCTION.Testing | | | | | | performed at [facility], [address] | | | | | [facility] | | | | | | [place] [address] | | | | + + + + + + + + | Specimen | + + | Blood specimen | | (specimen) | + + + +---------+ + + | Performing | Address | City/State/Zipcode | Phone Number | | Organization | | | | + +---------+ + + | EXTERNAL LAB | | | | + +---------+ + + PTT (12/05/2014 12:50 AM PDT) + + + + + + | Component | Value | Ref Range | Performed | Pathologist | | | | | At | Signature | + + + + + + | aPTT, | 28Comment: Testing | 23 - 32 seconds | EXTERNAL | | | Patient | performed at [facility];[address] | | LAB | | | | [address];[place], [place] | | | | | | [address] | | | | + + + + + + + + | Specimen | + + | Blood specimen | | (specimen) | + + + +---------+ + + | Performing | Address | City/State/Zipcode | Phone Number | | Organization | | | | + +---------+ + + | EXTERNAL LAB | | | | + +---------+ + + Protime INR (12/05/2014 12:50 AM PDT) + + + + + [...] | | | | | performed at [facility];[address] | | | | | | [address] [facility];[place], [place] | | | | | | [address] | | | | + + + [...] + +---------+ + + External Lab: CBC (12/05/2014 12:50 AM PDT) + + + + + + | Component | Value | Ref Range | Performed | Pathologist | | | | | At | Signature | + + + + + + | WBC | 9.28Comment: Testing | 3.80 - 11.00 | EXTERNAL | | | | performed at [facility];[address] | K/uL | LAB | | | | [address];[place] | | | | | | [address] | | | | + + + + + + | Non- | 5.05Comment: Testing | 4.20 - 5.70 | EXTERNAL | | | Red Blood | performed at [facility];[address] | M/uL | LAB | | | Cells | [address];[place] | | | | | Counted | [address] | | | | + + + + + + | Hemoglobin | 12.6 (L)Comment: Testing | 13.2 - 17.0 | EXTERNAL | | | | performed at [facility];[address] | g/dL | LAB | | | | [address];[place] | | | | | | [address] | | | | + + + + + + | Hematocrit, | 38.6 (L)Comment: Testing | 39.0 - 50.0 % | EXTERNAL | | | POC | performed at [facility];[address] | | LAB | | | | [address];[place] | | | | | | [address] | | | | + + + + + + | MCV | 76.4 (L)Comment: Testing | 80.0 - 100.0 fl | EXTERNAL | | | | performed at [facility];[address] | | LAB | | | | [address];[place] | | | | | | [address] | | | | + + + + + + | MCH | 25.0 (L)Comment: Testing | 27.0 - 34.0 pg | EXTERNAL | | | | performed at [facility];[address] | | LAB | | | | [address];[place] | | | | | | [address] | | | | + + + + + + | MCHC | 32.6Comment: Testing | 32.0 - 35.5 | EXTERNAL | | | | performed at [facility];[address] | g/dL | LAB | | | | [address];[place] | | | | | | [address] | | | | + + + + + + | RDW-CV | 42.4Comment: Testing | 37 - 53 fl | EXTERNAL | | | | performed at [facility];[address] | | LAB | | | | [address];[place] | | | | | | [address] | | | | + + + + + + | Platelet | 322Comment: Testing | 150 - 400 K/uL | EXTERNAL | | | Count | performed at [facility];[address] | | LAB | | | Plasma | [address];[place] | | | | | | [address] | | | | + + + + + + | MPV | 7.5Comment: Testing | fl | EXTERNAL | | | | performed at [facility];[address] | | LAB | | | | [address];[place] | | | | | | [address] | | | | + + + + + + | Differentia | AUTOMATEDComment: | | EXTERNAL | | | l Type | Testing performed at | | LAB | | | | [facility];[address];[place] [address] | | | | + + + + + + | % Segmented | 50.15Comment: Testing | % | EXTERNAL | | | | performed at [facility];[address] | | LAB | | | Neutrophils | [address];[place] | | | | | | [address] | | | | + + + + + + | % | 34.73Comment: Testing | % | EXTERNAL | | | Lymphocytes | performed at [facility];[address] | | LAB | | | | [address];[place] | | | | | | [address] | | | | + + + + + + | % Monocytes | 9.95Comment: Testing | % | EXTERNAL | | | | performed at [facility];[address] | | LAB | | | | [address];[place] | | | | | | [address] | | | | + + + + + + | % | 4.33Comment: Testing | % | EXTERNAL | | | Eosinophils | performed at [facility];[address] | | LAB | | | | [address];[place] | | | | | | [address] | | | | + + + + + + | % Basophils | 0.84Comment: Testing | % | EXTERNAL | | | | performed at [facility];[address] | | LAB | | | | [address];[place] | | | | | | [address] | | | | + + + + + + | Absolute | 4.66Comment: Testing | 1.90 - 7.40 | EXTERNAL | | | Segmented | performed at [facility];[address] | K/uL | LAB | | | Neutrophils | [address];[place] | | | | | | [address] | | | | + + + + + + | Absolute | 3.23Comment: Testing | 1.00 - 3.90 | EXTERNAL | | | Lymphocytes | performed at [facility];[address] | K/uL | LAB | | | | [address];[place] | | | | | | [address] | | | | + + + + + + | Absolute | 0.92 (H)Comment: Testing | 0.00 - 0.80 | EXTERNAL | | | Monocytes | performed at [facility];[address] | K/uL | LAB | | | | [address];[place] | | | | | | [address] | | | | + + + + + + | Absolute | 0.40Comment: Testing | 0.00 - 0.50 | EXTERNAL | | | Eosinophils | performed at [facility];[address] | K/uL | LAB | | | | [address];[place] | | | | | | [address] | | | | + + + + + + | Absolute | 0.08Comment: Testing | 0.00 - 0.10 | EXTERNAL | | | Basophils | performed at [facility];[address] | K/uL | LAB | | | | [address];[place] | | | | | | [address] | | | | + + + [...] + +---------+ + + Comprehensive Metabolic Panel (12/05/2014 12:50 AM PDT) + + + + + + | Component | Value | Ref Range | Performed | Pathologist | | | | | At | Signature | + + + + + + | Na | 139Comment: Testing | 135 - 143 | EXTERNAL | | | | performed at [facility];[address] | mmol/L | LAB | | | | [address];[place] | | | | | | [address] | | | | + + + + + + | K | 3.8Comment: Testing | 3.5 - 4.9 | EXTERNAL | | | | performed at [facility];[address] | mmol/L | LAB | | | | [address];[place] | | | | | | [address] | | | | + + + + + + | Cl | 102Comment: Testing | 99 - 109 mmol/L | EXTERNAL | | | | performed at [facility];[address] | | LAB | | | | [address];[place] | | | | | | [address] | | | | + + + + + + | CO2 | 31Comment: Testing | 23 - 32 mmol/L | EXTERNAL | | | | performed at [facility];[address] | | LAB | | | | [address];[place] | | | | | | [address] | | | | + + + + + + | Anion Gap | 10Comment: Testing | 5 - 20 mmol/L | EXTERNAL | | | | performed at [facility];[address] | | LAB | | | | [address];[place] | | | | | | [address] | | | | + + + + + + | Glucose, | 150 (H)Comment: Testing | 65 - 99 mg/dL | EXTERNAL | | | Fasting | performed at [facility];[address] | | LAB | | | | [address];[place] | | | | | | [address] | | | | + + + + + + | BUN | 22Comment: Testing | 8 - 25 mg/dL | EXTERNAL | | | | performed at [facility];[address] | | LAB | | | | [address];[place] | | | | | | [address] | | | | + + + + + + | Creatinine | 1.2Comment: Testing | 0.70 - 1.30 | EXTERNAL | | | | performed at [facility];[address] | mg/dL | LAB | | | | [address];[place] | | | | | | [address] | | | | + + + + + + | BUN/Creatin | 18Comment: Testing | | EXTERNAL | | | ine Ratio | performed at [facility];[address] | | LAB | | | | [address];[place] | | | | | | [address] | | | | + + + + + + | Calcium | 8.9Comment: Testing | 8.5 - 10.5 | EXTERNAL | | | | performed at [facility];[address] | mg/dL | LAB | | | | [address];[place] | | | | | | [address] | | | | + + + + + + | Protein, | 7.2Comment: Testing | 6.3 - 8.2 g/dL | EXTERNAL | | | Total | performed at [facility];[address] | | LAB | | | | [address];[place] | | | | | | [address] | | | | + + + + + + | Albumin | 3.3 (L)Comment: Testing | 3.6 - 5.0 g/dL | EXTERNAL | | | | performed at [facility];[address] | | LAB | | | | [address];[place] | | | | | | [address] | | | | + + + + + + | Globulin | 3.9Comment: Testing | 1.3 - 4.9 g/dL | EXTERNAL | | | | performed at [facility];[address] | | LAB | | | | [address];[place] | | | | | | [address] | | | | + + + + + + | A/G Ratio | 0.8 (L)Comment: Testing | 1.0 - 2.4 | EXTERNAL | | | | performed at [facility];[address] | | LAB | | | | [address];[place] | | | | | | [address] | | | | + + + + + + | Bilirubin | 0.3Comment: Testing | 0.1 - 1.5 mg/dL | EXTERNAL | | | Total | performed at [facility];[address] | | LAB | | | | [address];[place] | | | | | | [address] | | | | + + + + + + | ALP, | 112Comment: Testing | 35 - 115 U/L | EXTERNAL | | | External | performed at [facility];[address] | | LAB | | | | [address];[place] | | | | | | [address] | | | | + + + + + + | AST | 20Comment: Testing | 10 - 45 U/L | EXTERNAL | | | | performed at [facility];[address] | | LAB | | | | [address];[place] | | | | | | [address] | | | | + + + + + + | ALT | 21Comment: Testing | 10 - 65 U/L | EXTERNAL | | | | performed at [facility];[address] | | LAB | | | | [address];[place] | | | | | | [address] | | | | + + + [...] | | | | | | at [facility];[address] [place] [address] | | | | | | [facility];[place] [address] | | | | + + + [...] + | Diagnosis | + + | Left sided numbness Disturbance of skin sensation | + + | Acute nonintractable headache, unspecified headache type | + + | Paroxysmal atrial fibrillation (HCC) Atrial fibrillation | + + | History of arterial ischemic stroke Transient ischemic attack (TIA), and cerebral | | infarction without residual deficits | + + documented in this encounter"
--- OUTSIDE RECORDS SUMMARY | ~2019-09-09 | XMS | Encounter Summary ---
Demographics + + + | Address | [address] | | | [place] [address] | + + + | Home Phone [...] Sammi Kohler | ECON | [place] [address] | | + + + + + Care Team Providers + +------+ + | Care Health Clinician Name | Role | Phone | + +------+ + | Mireya Pack NP | PCP | | + +------+ + Reason for Visit + +--------+ + | Reason | Onset | Comments | | | Date | | + +--------+ + | Medication Refill | 04/17/ | | | | 2020 | | + +--------+ + Encounter Details +--------+--------+ + + + | Date | Type | Department | Care Team | Description | +--------+--------+ + + + | 04/17/ | Refill | [facility] | Mel Morton, | Medication Refill | | 2019 | | [facility] [address] | Assistant Facility Manager | | | | | [address] | | | | | | [place] | | | | | | [address] | | | | | | [phone] | | | +--------+--------+ + + + [...] this encounter Miscellaneous Notes Telephone Encounter - Tukey, Mel D, Assistant Facility Manager - 04/18/2019 8:39 AM PDTPharmac y requesting refill. Last appointment was 03/27/2019. Next appointment not scheduled.Electro nically signed by Mel Morton Assistant Facility Manager at 04/18/2019 9:01 AM PDTdocumented i n this encounter Plan of Treatment +--------+---------+ + + + | Date | Type | Specialty | Care Team | Description | +--------+---------+ + + + | 09/10/ | Office | Geriatric Medicine | Mireya Pack, | | 2019 | Visit | | PHOTOGRAPHIC PRINTER [address] | | | | | | [address] [facility], | | | | | | [place] [address] | | | | | | [phone] | | | | | | | | +--------+---------+ + + + | 09/29/ | Office | Urology | Mireya Pack, | | 2019 | Visit | | PHOTOGRAPHIC PRINTER [address] | | | | | | [address] [place], | | | | | | [place] [address] | | | | | | [phone] | | | | | | | | | | | | Toy Wild DO | | | | | | [address] | | | | | | [place] [address] | | | | | | [phone] | | | | | | | | +--------+---------+ + + + documented as of this encounter Visit Diagnoses + + | Diagnosis | + + | Type 2 diabetes mellitus with diabetic polyneuropathy, with long-term current use of | | insulin (HCC) | + + | Type 2 diabetes mellitus with hyperglycemia, with long-term current use of insulin | | (HCC) | + + documented in this encounter"
--- OUTSIDE RECORDS SUMMARY | ~2019-09-09 | XMS | Encounter Summary ---
Demographics + + + | Address | [address] | | | [place] [address] | + + + | Home Phone | | + + + | Preferred Language | Unknown | + + + | Marital Status | | + + + | Orthodoxy Affiliation | 1027 | + + + | Race | Unknown | + + + | Ethnic Group | Unknown | + + + Author + + + | Author | [facility] | | | and [place] | + + + | Organization | [facility] | | | and [place] | + + + | Address | Unknown | + + + | Phone | Unavailable | + + + Support + + + + + | Name | Relationship | Address | Phone | + + + + + | Sammi Kohler | ECON | [place] [address] | | + + + + + Care Team Providers + +------+ + | Care Radiosonde Operator Name | Role | Phone | + +------+ + PCP | Unavailable | + +------+ + Encounter Details +--------+ + + + + | Date | Type | Department | Care Team | Description | +--------+ + + + + | 03/17/ | Emergency | [facility] | Ger Llamas, | Visit for suture | | 2015 | | [facility] | [address] | removal | | | | EMERGENCY CENTER | [place] [address] | | | | | [address] | [phone] | | | | | [place], [place] | | | | | | [address] | | | | | | [phone] | | | +--------+ + + + [...] Progress Notes Conversion Transaction, Provider Unknown - 03/17/2014 10:30 AM PSTFormatting of this note m ight be different from the original. Case Management by QUINN Lea at 03/17/141029 Author: QUINN Lea Service: (none) Author Type: Cyber Workforce Developer And Manager Filed: 03/17/141029 Date of Service: 03/17/141029 Status: Signed Straightener And Aligner: QUINN Lea (Cyber Workforce Developer And Manager) This pt is case managed by the [facility] Care Program. The pt's care plan guidel andrei are as follows. Please contact the Emergency Department Flying Squad Salesperson for assistance as needed Send or Download documents Care Recommendation: Kevyn has a printed Crisis Plan at the Assisted Living Facility that he is to follow before coming to the ED for non life-threatening issues. Please discuss with Kevyn when he present s to the ED The following guidelines were formulated by the ED Care Guidelines Committee of the [facility] Consistent Care Program on May 21, 2013. No controlled substances should be administered in the ED or prescribed from the ED for sub jective pain. Past Medical & Surgical History: Primary Care Provider (PCP) is CRUZITO GUTIÉRREZ DO at [phone] . Notify PCP if giving any additional narcotics for objective findings. PCP supports [email or web address]. Medical History: 1. Diabetes-He is on a sliding scale after meals, routine insulin before meals and takes La ntus at night. A1C April, = 7.9%. He was referred to an field crop harvest worker in February, 4. 2. Chest Pain- Coronary Angiography (10/20) showed no significant underlying CAD. His cardio logist is Dr Sterilng. 3. COPD- He take symbicort, Spiriva and [...] the GE junction (requiring managem ent in [place] at ), rectal ulcer and internal hemorrhoids. 10. Hernia- He has been referred to Dr. Vargas. Problem List: He needs to make regular visits to see his PCP in light of his chronic conditions. This patient is developmentally delayed and has multiple chronic conditions and providers. He would benefit from having a Flying Squad Salesperson assist him in coordinating his care. There is an alternate plan in place for Kevyn- He may take a taxi (paid for my ACCP) to the Urgent Care Clinic ([facility]) for evaluation instead of the ED. The have been provided his pertinent medical records. Kevyn and the [facility] are aware of this plan. History of Behavioral Health Conditions: He has depression and anxiety- This is managed by his PCP. He takes Paxil and abilify. He has been referred to [facility] in February. According to [facility], he never establish ed care. Patient has now been scheduled twice and cancels at the last minute. Pain/Opioid Agreement: Kevyn has an order at the Assisted Living Facility for hydrocodone as needed. He does not h ave a diagnosis of chronic pain. Please see J2EE PROGRAMMER for prescribing history. Social History or Identified Risk: - Fall Risk - Non adherence - Transportation Issues Social History: Kevyn lives at [facility] . He may require another level of care given the number of ED visits at enrollment (22 in the last year)-please contact his [facility] se [employer] ([place]) to discuss. Kevyn is developmentally delayed- Patient may benefit from having someone with him at his d octor's appointments. He has applied for Dial-A-Ride services (April,) Applied for a Health Home for this client through [facility]- please review Provider One to determ ine if one has been assigned. Additional Information: This patient is case managed by the [facility] Consistent Care Program. Please contact the behavioral health care coordinator at your hospital for any immediate or post ED discharge needs this patient may have. Please contact Tari at [facility] at when patient pr esents to ED. You may also contact for additional information These are guidelines and the provider should exercise clinical judgment when providing care . docume nted in this encounter ED Notes Conversion Transaction, Provider Unknown - 03/17/2014 10:53 AM PSTFormatting of this note m ight be different from the original. ED Notes by Shree Reilly RN at 03/17/14 105 Author: Shree Reilly RN Service: (none) Author Type: Registered Nurse Filed: 03/17/141052 Date of Service: 03/17/141052 Status: Signed Straightener And Aligner: Shree Reilly RN (Registered Nurse) Sutures removed. Shree Reilly RN 03/17/141052 athes on, Ger Barrios MD - 03/17/2014 10:41 AM PST ED Provider Notes by Ger Llamas MD at 03/17/14 1041 Author: Ger Llamas MD Service: (none) Author Type: Physician Filed: 03/17/14 1759 Date of Service: 03/17/141040 Status: Signed Straightener And Aligner: Ger Llamas MD (Physician) [facility] Department of Emergency Medicine 10:41 AM History of Present Illness Patient Identification Kevyn Guzman is a 58 y.o. male. Patient information was obtained from patient. History/Exam limitations: none. Patient presented to the Emergency Department by: Car Chief Complaint Chief Complaint Patient presents with Suture / Staple Removal The patient presents to ED for suture removal. Onset of symptoms was 2 weeks ago, with a re siding course since that time. The symptoms are described to be of moderate severity. The pa tient describes the quality and location of the symptoms as the followin sutures to the forehead. There was no other care prior to arrival. PCP: JERRELL GUTIÉRREZ [...] - CHOLECYSTECTOMY; Surgeon: Jevon Vargas DO; Location: [facility] MAIN OR; Service: General; 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; Abdominal surgery Cholecystectomy Skin cancer excision 10/10/2012 Procedure: EXCISION - SKIN CANCER; Surgeon: Sy Fierro MD; Location: [facility] MAIN OR ; Service: Plastics; Laterality: Left; upper arm and upper back w/frozen section Esophagogastroduodenoscopy 03/03/2013 Procedure: ESOPHAGOGASTRODUODENOSCOPY; Surgeon: Howie Gibson MD; Location: [facility] ENDOSCOPY; S ervice: Gastroenterology; 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; Colonoscopy 03/04/2013 Procedure: COLONOSCOPY; Surgeon: Hoiwe Gibson MD; Location: [facility] ENDOSCOPY; Service: Gastroe nterology; 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; Upper gastrointestinal endoscopy Skin biopsy Hernia repair 07/03/2013 Procedure: LAPAROSCOPIC - HERNIA - INCISIONAL; Surgeon: Jevon Vargas DO; Location: [facility] MAIN OR; Service: General; 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; Prior to Admission medications Medication Sig Start Date End Date Taking? Authorizing Provider Albuterol Sulfate (VENTOLIN HFA IN) Inhale 2 puffs into the lungs as needed. 108 mcg/act Historical Provider Hkonm-Z-Uzcjbmbvvcdkh (BEANO) TABS Take 150 Units by mouth [...] daily. 180 mg at hs 11/30/13 11/30/14 [facility] carlyn Mae MD docusate sodium (COLACE) 100 [...] hours as needed for Pain. Historical Provider insulin glargine (LANTUS) 100 UNIT/ML injection Inject 82 Units into the skin nightly. 11/07 09/19 Augustine Agosto MD lamoTRIgine (LAMICTAL) 100 MG tablet Take 100 mg by mouth nightly. Historical Provider epkzdbcfk-dksycdhf-pjobclrpx hydroxide-simethicone Take 40 mLs by mouth daily [...] on file Social History Narrative Lives in shelter, [facility], full code Family History Problem Relation Age of Onset Heart disease Father Heart disease Sister Diabetes type II Sister Heart Problems Brother Review of Systems Constitutional: Negative for fever, chills Eyes: Negative for vision changes Nose: Negative for congestion, nosebleeds Throat: Negative for sore throat CV/Resp: Negative for chest pain, chvgphmck-sy-olvdje, cough GI: Negative for abdominal pain, nausea, vomiting, or diarrhea : Negative for urinary problems Musculoskeletal: Negative for back pain, joint pain Skin: Positive for suture removal Negative for rash Neuro/Psych: Negative for headache Endo/heme/Lymph: Negative for swollen lymph nodes, easy bruising All other systems reviewed and negative except as noted. Physical Exam BP 137/62 | Pulse 77 | Temp(Src) 99.1 F (37.3 C) (Oral) | Resp 16 | SpO2 98% Vital signs interpretation: WNL Pulse Oximetry interpretation: Normal General: Alert, NAD Eyes: Normal inspection, Neck: Supple Respiratory: No respiratory distress. Abdomen: Non-distended. Back: Normal ROM Extremities: Atraumatic Skin: Warm, dry. No rash, 2 healing wounds to the forehead, normal healing; no erythema or discharge Psych: Normal affect Medical Decision Making and Emergency Department Course ED Department Course 10:41 AM: Patient presents to ED for suture removal no complications wound healing appropri ately. I will remove sutures and have him follow up as needed. I discussed all ED results and my clinical impression with the patient. Patient is ready fo r discharge after suture removal. I advised patient to follow up with a PCP as needed and we discussed the emergent signs and symptoms that would necessitate a return to ED. The patien t understands and agrees with the plan. All questions and concerns addressed. Records Reviewed Old medical records. Nursing notes. Laboratory Evaluation Results None Radiology and EKG Evaluation Imaging Results None ED Diagnosis Final diagnosis Visit for suture removal Disposition: ED Disposition Orders Discharge Condition at discharge: Stable Follow-up Information Follow up With Details Comments Contact Info Jerrell Gutiérrez, DO As needed [facility] [address] [facility] Emergency Department If symptoms worsen [address] [place] [address] Discharge Medications: Discharge Medication List as of 03/17/2014 10:56 AM Procedures Additional Documentation Procedures Attending Note: Documentation assistance provided by Naseem Watson (Scribe). Information recorded by the scribe has been reviewed and validated by me. I ag ree with its contents. MD Ger Moser MD 03/17/14 8084 onversion Transact ion, Provider Unknown - 03/17/2014 10:27 AM PSTFormatting of this note might be different fr om the original. ED Notes by Shree Reilly RN at 03/17/14 1333 Author: Shree Tommie, RN Service: (none) Author Type: Registered Nurse Filed: 03/17/14 1027 Date of Service: 03/17/141026 Status: Signed Straightener And Aligner: Shree Reilly RN (Registered Nurse) Suture site on forehead is clean dry and intact. Wound looks well healed w/o S/sx of infect ion. Shree Reilly RN 03/17/141026 Genaro wilson in this encounter Plan of Treatment +--------+---------+ + + + | Date | Type | Specialty | Care Team | Description | +--------+---------+ + + + | 09/10/ | Office | Geriatric Medicine | Mireya Pack, | | | 2019 | Visit | | VISOR INSTALLER [address] | | | | | | [place] [address] [place], | | | | | | [place] [address] | | | | | | [phone] | | | | | | | | +--------+---------+ + + + | 09/29/ | Office | Urology | Mireya Pack, | | 2019 | Visit | | VISOR INSTALLER [address] | | | | | | [address] [place], | | | | | | [place] [address] | | | | | | [phone] | | | | | | | | | | | | Toy Wild, | | | | | | [address] | | | | | | [place] [address] | | | | | | [phone] | | | | | | | | +--------+---------+ + + + documented as of this encounter Visit Diagnoses + + | Diagnosis | + + | Visit for suture removal Encounter for removal of sutures | + + documented in this encounter
--- OUTSIDE RECORDS SUMMARY | ~2019-09-09 | XMS | Encounter Summary ---
Demographics + + + | Address | [address] | | | [place] [address] | + + + | Home Phone | | + + + | Preferred Language | Unknown | + + + | Marital Status | | + + + | Yarsanism Affiliation | [id number] | + + + | Race | Unknown | + + + | Ethnic Group | Unknown | + + + Author + + + | Author | [facility] | | | and [place] | + + + | Organization | [facility] | | | and [place] | + + + | Address | Unknown | + + + | Phone | Unavailable | + + + Support + + + + + | Name | Relationship | Address | Phone | + + + + + | Sammi Kohler | ECON | [place] [address] | | + + + + + Care Team Providers + +------+ + | Care Boiler Operator Helper Name | Role | Phone | + +------+ + PCP | Unavailable | + +------+ + Encounter Details +--------+ + + + + | Date | Type | Department | Care Team | Description | +--------+ + + + + | 03/22/ | Emergency | [facility] | Kevyn Don, | Abdominal pain, | | 2014 | | [facility]ICAL CENTER | [address] | acute, generalized | | | | EMERGENCY CENTER | [place], [place] | | | | | [address] | [address] | | | | | [place], [place] | | | | | | [address] | | | | | | [phone] | | | +--------+ + + + [...] ED Notes Conversion Transaction, Provider Unknown - 03/22/2013 6:32 AM PSTFormatting of this note m ight be different from the original. ED Notes by Vadim Bernal RN at 03/22/13631 Author: Vadim Bernal RN Service: (none) Author Type: Registered Nurse Filed: 03/22/13632 Date of Service: 03/22/13631 Status: Signed Property Adjuster: Vadim Bernal RN (Registered Nurse) Dr Don aware of patient's vital signs prior to discharge. Patient reports he will go ho me and take morning pills, including blood pressure medications. Vadim Bernal RN 03/22/13632 onver ivana Transaction, Provider Unknown - 03/22/2013 6:25 AM PST ED Notes by Vadim Bernal RN at 03/22/13624 Author: Vadim Bernal RN Service: (none) Author Type: Registered Nurse Filed: 03/22/13624 Date of Service: 03/22/13624 Status: Signed Property Adjuster: Vadim Bernal RN (Registered Nurse) Dr Don at bedside for discharge instructions. Vadim Bernal RN 03/22/13624 axKevyn daly MD - 03/22/2013 6:23 AM PST ED Provider Notes by Kevyn Don MD at 03/22/13622 Author: Kevyn Don MD Service: (none) Author Type: Physician Filed: 03/22/13623 Date of Service: 03/22/13622 Status: Signed Property Adjuster: Kevny Don MD (Physician) [facility] Department of Emergency Medicine Medical Decision Making and Emergency Department Course ED Department Course 06:00. Patient care initiated. Patient with recurrent abdominal pain and multiple prior workups. Pain has entirely resolv ed at the time of my examination. If workup is normal, plan is for discharge and continued outpatient follow up Patient Vitals for the past 24 hrs: BP Temp Temp src Pulse Resp SpO2 Height Weight 03/22/13 0529 176/84 mmHg - - 63 16 98 % - - 03/22/13 0440 188/98 mmHg 97.2 F (36.2 C) Oral 67 18 97 % 1.803 m (5' 11") 106.142 kg (234 lb) The vital sings above have been reviewed prior to disposition Medications given in the Emergency Department: Medications docusate sodium (COLACE) 100 MG capsule (not administered) HYDROcodone-acetaminophen (NORCO) 5-325 MG per tablet (not administered) polyethylene glycol (GLYCOLAX) powder (not administered) sodium chloride 0.9 % flush 10 mL (not administered) sodium chloride 0.9 % infusion ( Intravenous New Bag 03/22/13524) ondansetron (ZOFRAN) injection 8 mg (8 mg Intravenous Given 03/22/13524) Records Reviewed Old medical records. Nursing notes for this Emergency Department visit were reviewed. Consultations and phone calls: NONE Laboratory Evaluation: Results Procedure Component Value Ref Range Date/Time Comprehensive metabolic panel [[id number]] (Abnormal) Collected:03/22/13519 Order Status:Completed Updated:03/22/13622 Specimen Information:Blood SODIUM 138 135 - 143 mmol/L POTASSIUM 4.1 3.5 - 4.9 mmol/L CHLORIDE 103 99 - 109 mmol/L CO2 31 23 - 32 mmol/L ANION GAP AGAP 9 5 - 20 mmol/L GLUCOSE 257 (H) 65 - 99 mg/dL BUN 16 8 - 25 mg/dL CREATININE 1.34 (H) 0.70 - 1.30 mg/dL BUN/CREAT 12 CALCIUM 9.3 8.5 - 10.2 mg/dL TOTAL PROTEIN 7.2 6.3 - 8.2 g/dL Albumin 3.3 (L) 3.6 - 5.0 g/dL GLOBULIN 3.9 1.3 - 4.9 g/dL A/G 0.8 (L) 1.0 - 2.4 TBIL 0.4 0.1 - 1.5 mg/dL ALK PHOS 100 35 - 115 U/L AST 22 10 - 45 U/L ALT 24 10 - 65 U/L EGFR 58 (L) >60 mL/min/1.73m2 Lipase [[id number]] Collected:03/22/13519 Order Status:Completed Updated:03/22/13622 Specimen Information:Blood LIPASE 115 73 - 393 U/L C-Reactive Protein [[id number]] (Abnormal) Collected:03/22/13519 Order Status:Completed Updated:03/22/13622 Specimen Information:Blood CRP 1.0 (H) <0.5 mg/dL CBC with differential [[id number]] (Abnormal) Collected:03/22/13519 Order Status:Completed Updated:03/22/13528 Specimen Information:Blood WBC 8.3 3.8 - 11.0 K/uL RBC 4.94 4.20 - 5.70 M/uL HGB 13.6 13.2 - 17.0 g/dL HCT 41.2 39.0 - 50.0 % MCV 83.3 80.0 - 100.0 fl MCH 27.4 27.0 - 34.0 pg MCHC 32.9 32.0 - 35.5 g/dL RDW SD 42.4 37 - 53 fl PLT 284 150 - 400 K/uL MPV 7.1 fl DIFF TYPE AUTOMATED NEUTROPHILS 48.9 % LYMPHOCYTES 35.8 % MONOCYTES 10.2 % EOSINOPHILS 4.5 % BASOPHILS 0.6 % NEUTROPHILS ABS 4.1 1.9 - 7.4 K/uL LYMPHOCYTES ABS 3.0 1.0 - 3.9 K/uL MONOCYTES ABS 0.9 (H) 0 - 0.8 K/uL EOSINOPHILS ABS 0.4 0 - 0.5 K/uL BASOPHILS ABS 0.0 0 - 0.1 K/uL Radiology and EKG Evaluation Imaging Results None ED Diagnosis Final diagnosis Abdominal pain, acute, generalized Disposition: ED Disposition Discharge Condition at discharge: Stable . Follow-up Information Follow up With Details Comments Contact Info CITLALY Kent Schedule an appointment as soon as possible for a visit in 4 days [address] [facility] [id number] Discharge Medications: New Prescriptions No new medications Discharge decision based on the following: Patient's condition is stable; patient is ambul atory; patient drinking fluids; patient's pain is controlled; patient's exam is stable; mini tasneem abnormal test results; stable condition on repeat evaluations; social support is adequ ate; transportation is available; follow-up is available; clinical impression is consistent with outpatient treatment Additional Documentation Procedures Kevyn Don MD 03/22/13623 onversion Transact ion, Provider Unknown - 03/22/2013 6:17 AM PSTFormatting of this note might be different fr om the original. ED Notes by Vadim Bernal RN at 03/22/13616 Author: Vadim Bernal RN Service: (none) Author Type: Registered Nurse Filed: 03/22/13618 Date of Service: 03/22/13616 Status: Signed Property Adjuster: Vadim Bernal RN (Registered Nurse) Patient reports nausea and pain have resolved. Dr Don notified. Vadim Benral RN 03/22/13618 axwel Kevyn pereyra MD - 03/22/2013 5:15 AM PST ED Provider Notes by Kevyn Don MD at 03/22/13514 Author: Kevyn Don MD Service: (none) Author Type: Physician Filed: 03/22/13715 Date of Service: 03/22/13514 Status: Signed Property Adjuster: Kevyn Don MD (Physician) Related Notes: Related Note by Antonella Kendrick PA-C (Physician Construction Cost Estimator - Certified) filed at 03/22/13607 I have reviewed the note and supervised the mid-level provider. I was present for the veronica aspects of the services provided during this Emergency Department visit. I saw the patient and discharged him Kevyn Don MD 03/22/13715 ntonella Kendrick - 03/22/2013 5:15 AM PST ED Provider Notes by Antonella Kendrick PA-C at 03/22/13514 Author: Antonella Kendrick PA-C Service: (none) Author Type: Physician Construction Cost Estimator - Cer tified Filed: 03/22/13607 Date of Service: 03/22/13 0515 Status: Signed Property Adjuster: Antonella Kendrick PA-C (Physician Construction Cost Estimator - Certified) Related Notes: Cosigned by Kevyn Don MD (Physician) filed at 03/22/13 0716 Procedures [facility] Department of Emergency Medicine History of Present Illness Patient Identification Kevyn Guzman is a 57 y.o. male. Patient information was obtained from patient.and prior records History/Exam limitations: patient is developmentally delayed. Patient presented to the Emergency Department by: [facility] 1723 Chief Complaint Chief Complaint Patient presents with Nausea Abdominal Pain 57 year old male with a history of developmental delay to the ED for evaluation of nausea a nd abdominal pain. Pain is right hypogastric abdominal pain and associated with nausea. No fever, vomiting or diarrhea. Unfortunately, because of his developmental problems, he is not a very good historian so unable to quantify his pain but review of old records reveal th at he was discharged from here on 03/03/2013 after being admitted for hematemesis. During th at admission he was found to have a nodule at the gastroesophageal junction and rectal ulcer s. He is being sent to [place] for endoscopic biopsy of the nodule and will continue to be followed by Dr. Gibson after the procedure. Past Medical History Diagnosis Date Diabetes mellitus [...] - CHOLECYSTECTOMY; Surgeon: Jevon Vargas DO; Location: [facility] MAIN OR; Service: General; 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; Abdominal surgery Cholecystectomy Skin cancer excision 10/10/2012 Procedure: EXCISION - SKIN CANCER; Surgeon: Sy Fierro MD; Location: [facility] MAIN OR ; Service: Plastics; Laterality: Left; upper arm and upper back w/frozen section Esophagogastroduodenoscopy 03/03/2013 Procedure: ESOPHAGOGASTRODUODENOSCOPY; Surgeon: Howie Gibson MD; Location: [facility] ENDOSCOPY; S ervice: Gastroenterology; 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; Colonoscopy 03/04/2013 Procedure: COLONOSCOPY; Surgeon: Howie Gibson MD; Location: [facility] ENDOSCOPY; Service: Gastroe nterology; 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; Prior to Admission medications Medication Sig Start Date End Date Taking? Authorizing Provider ARIPiprazole (ABILIFY) 10 MG tablet Take 15 mg by mouth nightly. Yes Historical Provider docusate sodium (COLACE) 100 MG capsule Take 100 mg by mouth nightly. Yes Historical Prov ider famotidine (PEPCID) 20 MG tablet Take 1 tablet by mouth 2 (two) times daily. 12/22/1212/22 Yes Martell Gold MD HYDROcodone-acetaminophen (NORCO) 5-325 MG per tablet Take 1 tablet by mouth every 6 (six) hours as needed. Yes Historical Provider insulin aspart (NOVOLOG) 100 UNIT/ML injection Inject 3 Units into the skin 3 (three) times daily before meals. Yes Historical Provider insulin glargine (LANTUS) 100 [...] mouth daily. 03/05/13 03/05/14 Juan Martínez MD polyethylene glycol (GLYCOLAX) powder daily. Sig one capful in 8 oz of water two times a da y for five days then once a day. 03/13/13 03/22/13 Yes Gurvinder Cruz MD pravastatin (PRAVACHOL) 20 MG tablet Take 20 mg by mouth nightly. Yes Historical Provider polyethylene glycol (GLYCOLAX) powder Sig one capful in 8 oz of water two times a day for f aissatou days then once a day. 03/13/13 03/22/13 Yes Gurvinder Cruz MD Albuterol Sulfate (VENTOLIN HFA IN) Inhale 2 puffs into the lungs as needed. Historical Provider calcium carbonate (TUMS) 500 MG chewable tablet Take 500-1,000 mg by mouth daily as needed. For GERD Historical Provider cloNIDine (CATAPRES) 0.2 MG tablet Take 1 tablet by mouth 3 (three) times daily. 03/05/13 Scott Martínez MD diltiazem (CARDIZEM CD) 240 MG 24 hr capsule Take 240 mg by mouth daily. Historical Prov ider fenofibrate (TRIGLIDE) 160 MG tablet Take 160 mg by mouth daily. Historical Provider fluticasone-salmeterol (ADVAIR DISKUS) 250-50 MCG/DOSE AEPB Inhale 1 puff into the lungs ev wilbert 12 (twelve) hours. 09/14/12 Augustine Agosto MD insulin aspart (NOVOLOG) 100 UNIT/ML injection [...] 270 or less than 60 Historical Provider loperamide (IMODIUM) 2 MG capsule Take 2 [...] mg by mouth every morning. Historical Provider tiotropium (SPIRIVA) 18 MCG inhalation [...] on file Social History Narrative Lives in [place], [place], full code Family History Problem Relation Age of Onset Heart disease Father Heart disease Sister Diabetes type II Sister Review of Systems Constitutional: Negative for fever and chills. Respiratory: Negative for shortness of breath. Cardiovascular: Negative for chest pain and palpitations. Gastrointestinal: Positive for nausea and abdominal pain. Negative for vomiting, diarrhea a nd constipation. Genitourinary: Negative for dysuria. Musculoskeletal: Negative for back pain. Skin: Negative for rash. Neurological: Negative for dizziness and headaches. All other systems reviewed and are negative. Physical Exam BP 188/98 | Pulse 67 | Temp 97.2 F (36.2 C) (Oral) | Resp 18 | Ht 1.803 m (5' 11") | Wt 106.142 kg (234 lb) | BMI 32.65 kg/m2 | SpO2 97% Pulse Oximetry interpretation: Normal General: Alert, in no apparent distress with elevated blood pressure, but o/w normal vitals as above. Eyes: Normal inspection, pupils equal and round, non-icteric Neck: Normal inspection Supple Cardiovascular: Rate and rhythm normal No murmurs Respiratory: Breath sounds normal bilaterally. Respirations are non-labored Abdomen: Soft, diffuse tenderness without rebound or guarding. Bowel sounds present. Morb idly obese. Genitourinary: Deferred Rectal exam: Deferred Skin: Color normal Warm and dry No rash Neuro: No motor deficit No sensory deficit Alert, oriented. Moves all extremities fully and with purpose. No apparent neurological deficits. Medical Decision Making and Emergency Department Course Differential diagnosis includes but is not limted to PUD, cholecystitis, cholelithiasis, re nal stone or UTI. I have ordered labs, xray and pain medication. ED Department Course Patient is resting comfortably. Transferring care of patient to Dr. Don at [facility]. Report has been given Records Reviewed Old medical records. and imaging studies Antonella Kendrick PA-C 03/22/13 0608 onversion Transact ion, Provider Unknown - 03/22/2013 4:43 AM PSTFormatting of this note might be different fr om the original. ED Notes by Vadim Bernal RN at 03/22/13442 Author: Vadim Bernal RN Service: (none) Author Type: Registered Nurse Filed: 03/22/13442 Date of Service: 03/22/13442 Status: Signed Property Adjuster: Vadim Bernal RN (Registered Nurse) Patient gowned, bed rails up x1, call light within reach. Plan of care discussed, care boar d updated. Vadim Bernal RN 03/22/13442 onver ivana Transaction, Provider Unknown - 03/22/2013 4:41 AM PST ED Notes by Vadim Bernal RN at 03/22/13440 Author: Vadim Bernal RN Service: (none) Author Type: Registered Nurse Filed: 03/22/13440 Date of Service: 03/22/13440 Status: Signed Property Adjuster: Vadim Bernal RN (Registered Nurse) Patient resides at [facility]. Vadim Bernal RN 03/22/13440 onver ivana Transaction, Provider Unknown - 03/22/2013 4:39 AM PST ED Notes by Vadim Bernal RN at 03/22/13438 Author: Vadim Bernal RN Service: (none) Author Type: Registered Nurse Filed: 03/22/13439 Date of Service: 03/22/13438 Status: Signed Property Adjuster: Vadim Bernal RN (Registered Nurse) "I have a tumor in my belly, and Dr Gibson told me to come in because of the pain." Vadim Bernal RN 03/22/13439 onver ivana Transaction, Provider Unknown - 03/22/2013 4:39 AM PST ED Notes by Vadim Bernal RN at 03/22/13438 Author: Vadim Bernal RN Service: (none) Author Type: Registered Nurse Filed: 03/22/13438 Date of Service: 03/22/13438 Status: Signed Property Adjuster: Vadim Bernal RN (Registered Nurse) Bed:03
Expected date:
Expected time:
Means of arrival:
Comments:
docume nted in this encounter Plan of Treatment +--------+---------+ + + + | Date | Type | Specialty | Care Team | Description | +--------+---------+ + + + | 09/10/ | Office | Geriatric Medicine | Mireya Pack, | | | 2019 | Visit | | FIELD MARKETING COORDINATOR [address] | | | | | | [address] [place], | | | | | | [place] [address] | | | | | | [phone] | | | | | | | | +--------+---------+ + + + | 09/29/ | Office | Urology | Mireya Pack, | | 2019 | Visit | | FIELD MARKETING COORDINATOR [address] | | | | | | [address] [place], | | | | | | [place] [address] | | | | | | [phone] | | | | | | | | | | | | [place], | | | | | | [address] | | | | | | [place] [address] | | | | | | [phone] | | | | | | | | +--------+---------+ + + + documented as of this encounter Procedures + +--------+ + + + | Procedure Name | Priori | Date/Time | Associated Diagnosis | Comments | | | ty | | | | + +--------+ + + + | EXTERNAL LAB: CBC | Routin | 03/22/2013 | | Results for this | | | e | 5:20 AM | | procedure are in the | | | | PST | | results section. | + +--------+ + + + | C-REACTIVE PROTEIN | Routin | 03/22/2013 | | Results for this | | | e | 5:20 AM | | procedure are in the | | | | PST | | results section. | + +--------+ + + + | LIPASE | Routin | 03/22/2013 | | Results for this | | | e | 5:20 AM | | procedure are in the | | | | PST | | results section. | + +--------+ + + + | COMPREHENSIVE | Routin | 03/22/2013 | | Results for this | | METABOLIC PANEL | e | 5:20 AM | | procedure are in the | | | | PST | | results section. | + +--------+ + + + documented in this encounter Results External Lab: [facility] (03/22/2013 5:20 AM PST) + + + + + + | Component | Value | Ref Range | Performed | Pathologist | | | | | At | Signature | + + + + + + | WBC | 8.3Comment: Testing | 3.8 - 11.0 K/uL | EXTERNAL | | | | performed at [facility] | | LAB | | | | [address];[place] | | | | | | [address] | | | | + + + + + + | Non- | 4.94Comment: Testing | 4.20 - 5.70 | EXTERNAL | | | Red Blood | performed at [facility] | M/uL | LAB | | | Cells | [address];[place] | | | | | Counted | [address] | | | | + + + + + + | Hemoglobin | 13.6Comment: Testing | 13.2 - 17.0 | EXTERNAL | | | | performed at [facility] | g/dL | LAB | | | | [address];[place] | | | | | | [address] | | | | + + + + + + | Hematocrit, | 41.2Comment: Testing | 39.0 - 50.0 % | EXTERNAL | | | POC | performed at [facility] | | LAB | | | | [address];[place] | | | | | | [address] | | | | + + + + + + | MCV | 83.3Comment: Testing | 80.0 - 100.0 fl | EXTERNAL | | | | performed at [facility] | | LAB | | | | [address];[place] | | | | | | [address] | | | | + + + + + + | MCH | 27.4Comment: Testing | 27.0 - 34.0 pg | EXTERNAL | | | | performed at [facility] | | LAB | | | | [address];[place] | | | | | | [address] | | | | + + + + + + | MCHC | 32.9Comment: Testing | 32.0 - 35.5 | EXTERNAL | | | | performed at [facility] | g/dL | LAB | | | | [address];[place] | | | | | | [address] | | | | + + + + + + | RDW-CV | 42.4Comment: Testing | 37 - 53 fl | EXTERNAL | | | | performed at [facility] | | LAB | | | | [address];[place] | | | | | | [address] | | | | + + + + + + | Platelet | 284Comment: Testing | 150 - 400 K/uL | EXTERNAL | | | Count | performed at [facility] | | LAB | | | Plasma | [address];[place] | | | | | | [address] | | | | + + + + + + | MPV | 7.1Comment: Testing | fl | EXTERNAL | | | | performed at [facility] | | LAB | | | | [address];[place] | | | | | | [address] | | | | + + + + + + | Differentia | AUTOMATEDComment: | | EXTERNAL | | | l Type | Testing performed at | | LAB | | | | [facility] | [address];[place] [address] | | | | + + + + + + | % Segmented | 48.9Comment: Testing | % | EXTERNAL | | | | performed at [facility] | | LAB | | | Neutrophils | [address];[place] | | | | | | [address] | | | | + + + + + + | % | 35.8Comment: Testing | % | EXTERNAL | | | Lymphocytes | performed at [facility] | | LAB | | | | [address];[place] | | | | | | [address] | | | | + + + + + + | % Monocytes | 10.2Comment: Testing | % | EXTERNAL | | | | performed at [facility] | | LAB | | | | [address];[place] | | | | | | [address] | | | | + + + + + + | % | 4.5Comment: Testing | % | EXTERNAL | | | Eosinophils | performed at [facility] | | LAB | | | | [address];[place] | | | | | | [address] | | | | + + + + + + | % Basophils | 0.6Comment: Testing | % | EXTERNAL | | | | performed at [facility] | | LAB | | | | [address];[place] | | | | | | [address] | | | | + + + + + + | Absolute | 4.1Comment: Testing | 1.9 - 7.4 K/uL | EXTERNAL | | | Segmented | performed at [facility] | | LAB | | | Neutrophils | [address];[place] | | | | | | [address] | | | | + + + + + + | Absolute | 3.0Comment: Testing | 1.0 - 3.9 K/uL | EXTERNAL | | | Lymphocytes | performed at [facility] | | LAB | | | | [address];[place] | | | | | | [address] | | | | + + + + + + | Absolute | 0.9 (H)Comment: Testing | 0 - 0.8 K/uL | EXTERNAL | | | Monocytes | performed at [facility] | | LAB | | | | [address];[place] | | | | | | [address] | | | | + + + + + + | Absolute | 0.4Comment: Testing | 0 - 0.5 K/uL | EXTERNAL | | | Eosinophils | performed at [facility] | | LAB | | | | [address];[place] | | | | | | [address] | | | | + + + + + + | Absolute | 0.0Comment: Testing | 0 - 0.1 K/uL | EXTERNAL | | | Basophils | performed at [facility] | | LAB | | | | [address];[place] | | | | | | [address] | | | | + + + + + + + + | Specimen | + + | Blood specimen | | (specimen) | + + + +---------+ + + | Performing | Address | City/State/Zipcode | Phone Number | | Organization | | | | + +---------+ + + | EXTERNAL LAB | | | | + +---------+ + + C-Reactive Protein (03/22/2013 5:20 AM PST) + + + + + + | Component | Value | Ref Range | Performed | Pathologist | | | | | At | Signature | + + + + + + | CRP | 1.0 (H)Comment: Testing | mg/dL | EXTERNAL | | | | performed at [facility] | | LAB | | | | [address];[place] | | | | | | [address] | | | | + + + + + + + + | Specimen | + + | Blood specimen | | (specimen) | + + + +---------+ + + | Performing | Address | City/State/Zipcode | Phone Number | | Organization | | | | + +---------+ + + | EXTERNAL LAB | | | | + +---------+ + + Lipase (03/22/2013 5:20 AM PST) + + + + + + | Component | Value | Ref Range | Performed | Pathologist | | | | | At | Signature | + + + + + + | Lipase | 115Comment: Testing | 73 - 393 U/L | EXTERNAL | | | | performed at [facility] | | LAB | | | | [address];[place] | | | | | | [address] | | | | + + + [...] + +---------+ + + Comprehensive Metabolic Panel (03/22/2013 5:20 AM PST) + + + + + + | Component | Value | Ref Range | Performed | Pathologist | | | | | At | Signature | + + + + + + | Na | 138Comment: Testing | 135 - 143 | EXTERNAL | | | | performed at [facility] | mmol/L | LAB | | | | [address];[place] | | | | | | [address] | | | | + + + + + + | K | 4.1Comment: Testing | 3.5 - 4.9 | EXTERNAL | | | | performed at [facility] | mmol/L | LAB | | | | [address];[place] | | | | | | [address] | | | | + + + + + + | Cl | 103Comment: Testing | 99 - 109 mmol/L | EXTERNAL | | | | performed at [facility] | | LAB | | | | [address];[place] | | | | | | [address] | | | | + + + + + + | CO2 | 31Comment: Testing | 23 - 32 mmol/L | EXTERNAL | | | | performed at [facility] | | LAB | | | | [address];[place] | | | | | | [address] | | | | + + + + + + | Anion Gap | 9Comment: Testing | 5 - 20 mmol/L | EXTERNAL | | | | performed at [facility] | | LAB | | | | [address];[place] | | | | | | [address] | | | | + + + + + + | Glucose, | 257 (H)Comment: Testing | 65 - 99 mg/dL | EXTERNAL | | | Fasting | performed at [facility] | | LAB | | | | [address];[place] | | | | | | [address] | | | | + + + + + + | BUN | 16Comment: Testing | 8 - 25 mg/dL | EXTERNAL | | | | performed at [facility] [facility] | | LAB | | | | [address];[place] | | | | | | [address] | | | | + + + + + + | Creatinine | 1.34 (H)Comment: Testing | 0.70 - 1.30 | EXTERNAL | | | | performed at [facility] | mg/dL | LAB | | | | [address];[place] | | | | | | [address] | | | | + + + + + + | BUN/Creatin | 12Comment: Testing | | EXTERNAL | | | ine Ratio | performed at [facility] | | LAB | | | | [address];[place] | | | | | | [address] | | | | + + + + + + | Calcium | 9.3Comment: Testing | 8.5 - 10.2 | EXTERNAL | | | | performed at [facility] | mg/dL | LAB | | | | [address];[place] | | | | | | [address] | | | | + + + + + + | Protein, | 7.2Comment: Testing | 6.3 - 8.2 g/dL | EXTERNAL | | | Total | performed at [facility] | | LAB | | | | [address];[place] | | | | | | [address] | | | | + + + + + + | Albumin | 3.3 (L)Comment: Testing | 3.6 - 5.0 g/dL | EXTERNAL | | | | performed at [facility] | | LAB | | | | [address];[place] | | | | | | [address] | | | | + + + + + + | Globulin | 3.9Comment: Testing | 1.3 - 4.9 g/dL | EXTERNAL | | | | performed at [facility] | | LAB | | | | [address];[place] | | | | | | [address] | | | | + + + + + + | A/G Ratio | 0.8 (L)Comment: Testing | 1.0 - 2.4 | EXTERNAL | | | | performed at [facility] | | LAB | | | | [address];[place] | | | | | | [address] | | | | + + + + + + | Bilirubin | 0.4Comment: Testing | 0.1 - 1.5 mg/dL | EXTERNAL | | | Total | performed at [facility] | | LAB | | | | [address];[place] | | | | | | [address] | | | | + + + + + + | ALP, | 100Comment: Testing | 35 - 115 U/L | EXTERNAL | | | External | performed at [facility] | | LAB | | | | [address];[place] | | | | | | [address] | | | | + + + + + + | AST | 22Comment: Testing | 10 - 45 U/L | EXTERNAL | | | | performed at [facility] | | LAB | | | | [address];[place] | | | | | | [address] | | | | + + + + + + | ALT | 24Comment: Testing | 10 - 65 U/L | EXTERNAL | | | | performed at [facility] | | LAB | | | | [address];[place], [place] | | | | | | [address] | | | | + + + + + + | Estimated | 58 (L)Comment: GFR <60: | mL/min/1.73m2 | EXTERNAL [...] | | | | | | at [facility];[place] [address] | | | | + + + [...] | Diagnosis | + + | Abdominal pain, acute, generalized Abdominal pain, generalized | + + documented in this encounter
--- OUTSIDE RECORDS SUMMARY | ~2019-09-09 | XMS | Encounter Summary ---
Demographics + + + | Address | [address] | | | [place] [address] | + + + | Home Phone | | + + + | Preferred Language | Unknown | + + + | Marital Status | | + + + | Congregation Affiliation | 1027 | + + + | Race | Unknown | + + + | Ethnic Group | Unknown | + + + Author + + + | Author | [facility] | | | and [place] | + + + | Organization | [facility] | | | and [place] | + + + | Address | Unknown | + + + | Phone | Unavailable | + + + Support + + + + + | Name | Relationship | Address | Phone | + + + + + | Sammi Kohler | ECON | [place] [address] | | + + + + + Care Team Providers + +------+ + | Care Signal Engineer Name | Role | Phone | + +------+ + PCP | Unavailable | + +------+ + Encounter Details +--------+ + + + + | Date | Type | Department | Care Team | Description | +--------+ + + + + | 01/13/ | Emergency | [facility] | [place]horst, Reynaldo | Fall from bed, | | 2013 | | [facility] | DO [address] | initial encounter; | | | | [facility] | [address] | Lumbosacral strain, | | | | [address] | [place], [place] | initial encounter | | | | [place], [place] | [address] | | | | | [address] | [phone] | | | | | [phone] | | | +--------+ + + + [...] ED Notes Conversion Transaction, Provider Unknown - 01/13/2014 7:18 AM PSTFormatting of this note m ight be different from the original. ED Notes by Roxana Walters RN at 01/13/14717 Author: Roxana Walters RN Service: (none) Author Type: Registered Nurse Filed: 01/13/14717 Date of Service: 01/13/14717 Status: Signed Bioengineer: Roxana Walters RN (Registered Nurse) [facility] called for transport Roxana Walters RN 01/13/14717 Reynaldo Landin DO - 01/13/2014 6:36 AM PSTFormatting of this note might be different f rom the original. ED Provider Notes by Renyaldo Prather DO at 01/13/14635 Author: Reynaldo Prather DO Service: (none) Author Type: Physician Filed: 01/13/14723 Date of Service: 01/13/14635 Status: Signed Bioengineer: Reynaldo Prather DO (Physician) [facility] Department of Emergency Medicine 6:36 AM History of Present Illness Patient Identification Kevyn Guzman is a 58 y.o. male. Patient information was obtained from patient. History/Exam limitations: none. Patient presented to the Emergency Department by: [facility] Chief Complaint Chief Complaint Patient presents with Fall Head Injury Back Pain The patient presents to ED with complaints of fall. Onset of symptoms was 5:30 AM, with an unchanged course since that time. The symptoms are described to be of moderate severity. The patient states he needed to use the restroom so he rolled over, and fell out of his bed ont o the carpeted floor. The patient also complains of abrasion to head, low back pain (states "my back was sore before that", same pain but now worse). Patient denies LOC. Care prior to arrival consisted of Aleve, with no relief. Pt lives in an assisted living facility. Pt walk s with a walker. PCP: JERRELL GUTIÉRREZ Past Medical History Diagnosis [...] - CHOLECYSTECTOMY; Surgeon: Jevon Vargas DO; Location: [facility]; Service: General; 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; Abdominal surgery Cholecystectomy Skin cancer excision 10/10/2012 Procedure: EXCISION - SKIN CANCER; Surgeon: Sy Fierro MD; Location: [facility] ; Service: Plastics; Laterality: Left; upper arm and upper back w/frozen section Esophagogastroduodenoscopy 03/03/2013 Procedure: ESOPHAGOGASTRODUODENOSCOPY; Surgeon: Howie Gibson MD; Location: [facility]; S ervice: Gastroenterology; 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; Colonoscopy 03/04/2013 Procedure: COLONOSCOPY; Surgeon: Howie Gibson MD; Location: [facility]; Service: Gastroe nterology; 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; Upper gastrointestinal endoscopy Skin biopsy Hernia repair 07/03/2013 Procedure: LAPAROSCOPIC - HERNIA - INCISIONAL; Surgeon: Jevon Vargas DO; Location: [facility]; Service: General; 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; Prior to Admission medications Medication Sig Start Date End Date Taking? Authorizing Provider Albuterol Sulfate (VENTOLIN HFA IN) Inhale 2 puffs into the lungs as needed. 108 mcg/act Yes Historical Provider amLODIPine (NORVASC) 10 MG tablet Take 1 tablet by mouth daily. 12/03/13 Yes Augustine Agosto MD ARIPiprazole (ABILIFY) 15 MG tablet Take 20 mg by mouth daily. Yes Historical Provider aspirin 81 MG chewable tablet Take 1 tablet by mouth daily with breakfast. 05/27/13 05/27/14 Yes Augustine Agosto MD clonazePAM (KLONOPIN) 1 MG tablet Take 1 mg by mouth 2 (two) times daily as needed for Anxi ety. Yes Historical Provider clonidine (CATAPRES) Place 1 patch onto the skin once a week. 0.2mg/hr Yes Historical Pro vider diltiazem (CARDIZEM CD) 240 MG 24 hr capsule Take 1 capsule by mouth daily. Patient taking differently: Take 240 mg by mouth daily. 180 mg at hs 11/30/13 11/30/14 Yes Kristian Mae MD docusate sodium (COLACE) 100 MG capsule Take 250 mg by mouth 2 (two) times daily. "Hold if loose stools" as noted on APR from pt's facility. Yes Historical Provider fenofibrate (TRIGLIDE) 160 MG tablet Take 160 mg by mouth daily. Yes Historical Provider gabapentin (NEURONTIN) 100 MG capsule Take 100 mg by mouth every evening. Yes Historical Provider insulin glargine (LANTUS) 100 UNIT/ML injection Inject 82 Units into the skin nightly. 11/07 09/19 Yes Augustine Agosto MD lamoTRIgine (LAMICTAL) 100 MG tablet Take 100 mg by mouth nightly. Yes Historical Provide r lisinopril (ZESTRIL) 40 MG tablet Take 40 mg by mouth every evening. 03/05/13 03/05/14 Yes Reynold Martínez MD Mometasone Furo-Formoterol Fum (DULERA) 100-5 MCG/ACT AERO Inhale 2 puffs into the lungs 2 (two) times daily. Yes Historical Provider naproxen sodium (ANAPROX) 220 MG tablet Take 220 mg by mouth 2 (two) times daily with meals . Yes Historical Provider NOVOLOG 100 UNIT/ML injection INJ 3U SUB-Q TID(AC) AND INJECT SUBCUTANEOUSLY PER SLIDING SC SUSAN 1-70= 2U, 71-100=3U, 101-120= 4U, 121-150=5U, 151-180=6U, 181-210= 7U, 211- 04/23/13 Yes Bang Yeh MD omeprazole (PRILOSEC) 20 MG capsule Take 1 capsule by mouth 2 (two) times daily. 05/27/13 Yes Augustine Agosto MD oxyCODONE-acetaminophen (PERCOCET) 5-325 MG per tablet Take 1 tablet by mouth every 6 (six) hours as needed for Pain. Yes Historical Provider paroxetine (PAXIL) 40 MG tablet Take 40 mg by mouth every morning. Yes Historical Provide r polyethylene glycol (GLYCOLAX) powder DISSOLVE 17GM IN LIQUID AND DRINK BY MOUTH EVERY DAY 04/23/13 Yes Bang Yeh MD polyethylene glycol (GOLYTELY,NULYTELY) 236 G suspension Take by mouth once. Yes Histori amadou Provider pravastatin (PRAVACHOL) 20 MG tablet Take 20 mg by mouth nightly. Yes Historical Provider tamsulosin (FLOMAX) 0.4 MG capsule Take 0.4 mg by mouth 2 (two) times daily. Administer 30 minutes after the same meal each day. Capsules should be swallowed whole; do not crush, chew , or open Yes Historical Provider tiotropium (SPIRIVA) 18 MCG inhalation capsule Inhale 18 mcg into the lungs daily. Yes Hi storical Provider Vvjsb-P-Goivjqmyrsbbm (BEANO) TABS Take 150 Units by mouth 3 (three) times daily as needed (As needed for gas). Historical Provider antipyrine-benzocaine (AURALGAN) otic solution Place 4 drops into both ears daily. Histo rical Provider calcium carbonate (TUMS) 500 MG chewable tablet Take 500-1,000 mg by mouth daily as needed. For GERD Historical Provider sdoppemev-hadpzuwq-nawmaxrye hydroxide-simethicone Take 40 mLs by mouth daily as needed. Historical Provider loperamide (IMODIUM) 2 MG capsule Take 2 mg by mouth as needed. 4 mg after first loose stoo l, then 2 mg after each further loose stool Not to exceed 8 mg per day. Historical Provider nitroGLYCERIN (NITROSTAT) 0.[address] 0.4 mg under the tongue every 5 (five) min utes as needed. Historical Provider ondansetron (ZOFRAN-ODT) 4 MG disintegrating tablet Take 4 mg by mouth every 6 (six) hours as needed for Nausea. Historical Provider lurasidone (LATUDA) 20 MG tablet Take 20 mg by mouth nightly. T 01/13/14 Historical Provid er Allergies Allergen Reactions Vitamin B12 Rash History Social History Marital Status: Spouse Name: N/A Number of Children: 1 Years of Education: [email or web address] Occupational History disabled Social History Main Topics Smoking status: Never Smoker Smokeless tobacco: Never Used Alcohol Use: 0.0 oz/week 1-2 Cans of beer per week Comment: once week, occasionally Drug Use: No Sexual Activity: Not Currently Other Topics Concern Not on file Social History Narrative Lives [place], [place], full code Family History Problem Relation Age of Onset Heart disease Father Heart disease Sister Diabetes type II Sister Heart Problems Brother Review of Systems Constitutional: Positive for fall Negative for fever, chills Eyes: Negative for vision changes Nose: Negative for congestion, nosebleeds Throat: Negative for sore throat CV/Resp: Negative for chest pain, hyfkwtuxs-yi-xpepaz, cough GI: Negative for abdominal pain, nausea, vomiting, or diarrhea : Negative for urinary problems Musculoskeletal: Positive for back pain Negative for joint pain Skin: Positive for head abrasion Negative for rash Neuro/Psych: Negative for headache or LOC Endo/heme/Lymph: Negative for swollen lymph nodes, easy bruising All other systems reviewed and negative except as noted. Physical Exam BP 168/79 | Pulse 66 | Temp(Src) 97.6 F (36.4 C) (Oral) | Resp 16 | Wt 108.863 kg (240 lb) | SpO2 97% Vital signs interpretation: Hypertensive, otherwise normal Pulse Oximetry interpretation: Normal General: Alert, awake, and oriented, in no apparent distress, slow and slurred speech-chron ic per staff Head: Superficial abrasion right forehead Eyes: Normal inspection, pupils equal and round, non-icteric ENT: Atraumatic Ears normal Nose normal Pharynx normal Neck: Normal inspection, normal ROM with no apparent pain, no midline tenderness No lymphadenopathy Cardiovascular: Rate and rhythm normal No murmurs, no bruit or gallop Chest: Non tender, good excursion Respiratory: Breath sounds normal bilaterally No rales, wheezing or rhonchi Abdomen: Soft, non-tender at this time, non-distended No guarding or rebound Back: Mild right lumbosacral tenderness, good ROM, no midline tenderness Extremities: Moving all extremities without discomfort. No edema, good ROM without pain Skin: Color normal Warm and dry No rash Neuro: Alert, no AMS No motor deficit No sensory deficit Medical Decision Making and Emergency Department Course ED Department Course 6:36 AM Patient presents to ED with complaints of fall with low back pain and head abrasion . On exam the patient has mild right lumbosacral tenderness and a superficial abrasion to th e right forehead. My DDx includes, but is not limited to: strain, sprain, abrasion. Will ord er a dose of medication. Patient is stable at this time. At this time the patient is very well-appearing. He landed on a carpeted floor. There is no loss of consciousness. He is not vomiting. At this time I do not feel any labs or imagi ng are indicated. Patient states that he was having back pain prior to rolling out of bed t his morning. The pain is the same only slightly worse. I will treat the patient erin beaver. He will follow-up with his primary care physician as an outpatient. I discussed my clinical impression with the patient. Patient is ready for discharge after p ain medication. I advised patient to follow up with a PCP and we discussed the emergent sign s and symptoms that would necessitate a return to ED. The patient understands and agrees wit h the plan. All questions and concerns addressed. Will discharge home. ED Medication Administration from 01/13/2014 0605 to 01/13/2014 0712 Date/Time Order Dose Route Action Action by 01/13/2014 0701 HYDROcodone-acetaminophen (NORCO) 5-325 MG per tablet 1 tablet 1 tablet O ral Given Roxana Walters RN Filed Vitals: 01/13/1461101/13/14 0706 BP: 168/79 167/86 Pulse: 66 76 Temp: 97.6 F (36.4 C) 98.7 F (37.1 C) TempSrc: Oral Oral Resp: 16 16 Weight: 108.863 kg (240 lb) SpO2: 97% 98% Records Reviewed Old medical records. Nursing notes. Pt has many frequent ED visits for a variety of complaints. Laboratory Evaluation Results None Radiology and EKG Evaluation Imaging Results None ED Diagnoses Final diagnoses Fall from bed, initial encounter Lumbosacral strain, initial encounter Disposition: ED Disposition Orders Discharge Condition at discharge: Stable Follow-up Information Follow up With Details Comments Contact Info Jerrell Gutiérrez DO In 1 day [address] [id number] [facility] Emergency Department If symptoms worsen [address] [address] Discharge Medications: New Prescriptions No new medications Procedures Additional Documentation Procedures Attending Note: Documentation assistance provided by Kathryn Melendez (Scribe). Information recorded by the scribe has been reviewed and validated by me. Troy laughlin with its contents. DO Reynaldo Jiménez DO 01/13/14 0724 onsivan Badillo, Provider Unknown - 01/13/2014 6:05 AM PSTFormatting of this note might be diff erent from the original. ED Notes by Onel Kenney RN at 01/13/14604 Author: Onel Kenney RN Service: (none) Author Type: Registered Nurse Filed: 01/13/14604 Date of Service: 01/13/14604 Status: Signed Bioengineer: Onel Kenney RN (Registered Nurse) Bed: 07 Expected date: Expected time: Means of arrival: Comments: docume nted in this encounter Plan of Treatment +--------+---------+ + + + | Date | Type | Specialty | Care Team | Description | +--------+---------+ + + + | 09/10/ | Office | Geriatric Medicine | Mireya Pack, | | | 2019 | Visit | | [employer] [address] | | | | | | [address] [place], | | | | | | [place] [address] | | | | | | [phone] | | | | | | | | +--------+---------+ + + + | 09/29/ | Office | Urology | Mireya Pack, | | | 2019 | Visit | | [employer] PRESS OPERATOR [address] | | | | | | [address] [place], | | | | | | [place] [address] | | | | | | [phone] | | | | | | | | | | | | Toy Wild, DO | | | | | | [address] | | | | | | [place] [address] | | | | | | [phone] | | | | | | | | +--------+---------+ + + + documented as of this encounter Visit Diagnoses + + | Diagnosis | + + | Fall from bed, initial encounter | + + | Lumbosacral strain, initial encounter | + + documented in this encounter
--- OUTSIDE RECORDS SUMMARY | ~2019-09-09 | XMS | Encounter Summary ---
Demographics + + + | Address | [address] | | | [place] [address] | + + + | Home Phone | | + + + | Preferred Language | Unknown | + + + | Marital Status | | + + + | Holiness Affiliation | [id number] | + + + [...] Sammi Kohler | ECON | [place] [address] | | + + + + + Care Team Providers + +------+ + | Care Print Project Manager Name | Role | Phone | + +------+ + | Mireya Pack NP | PCP | | + +------+ + Reason for Visit + + + | Reason | Comments | + + + | Chest Pain | woke up with CP, hx afib | + + + Encounter Details +--------+ + + + + | Date | Type | Department | Care Team | Description | +--------+ + + + + | 04/04/ | Emergency | [facility] | Ana Victoria, | Chest pain, | | 2019 | | MEDICAL TY TY | [facility] [address] | unspecified type | | | | EMERGENCY CENTER | [place], [place] | (Primary Dx) | | | | [address] | [address] | | | | | [place], [place] | [phone] | | | | | [address] | | | | | | [phone] | Mik Kwong MD | | | | | | [address] | | | | | | [place] [address] | | | | | | [phone] | | | | | | | [...] + + + | Blood Pressure | 165/75 | 04/04/2019 6:01 AM | | | | | PST | | + + + + + | Pulse | 68 | 04/04/2019 6:01 AM | | | | | PST | | + + + + + | Temperature | 36.2 C (97.1 F) | 04/04/2019 4:18 AM | | | | | PST | | + + + + + | Respiratory Rate | 22 | 04/04/2019 6:01 AM | | | | | PST | | + + + + + | Oxygen Saturation | 93% | 04/04/2019 6:01 AM | | | | | PST | | + + + + + | Inhaled Oxygen | - | - | | | Concentration | | | | + + + + + | Weight | 99.8 kg (220 lb) | 04/04/2019 4:18 AM | | | | | PST | | + + + + + | Height | - | - | | + + + + + | Body Mass Index | 30.68 | 03/12/2019 8:57 AM | | | | | PST [...] following attachments cannot be sent through Care Everywhere.Chest Pain, Unc ertain Cause (Tuvaluan)documented in this encounter Medications at Time of [...] + | aspirin 81 MG | Take 81 mg by mouth | | 0 | | | | tablet | Daily as needed for | | | | 0 | | | Fever. | | | | | + + [...] + + | insulin aspart | Inject 10 Units | | 0 | 03/27/19 | | | (NOVOLOG FLEXPEN) | under the skin 3 | | | 20 | 0 | | 100 units/mL | times daily (before | | | | | | injection pen | meals). Plus 5 units | | | | | | | if > 300 | | | | | + + + +---------+ + + | insulin detemir | Inject 45 Units | 12 mL | 0 | 03/27/19 | | | (LEVEMIR FLEXTOUCH) | under [...] + documented as of this encounter ED Ana Fields PA-C - 04/04/2019 4:15 AM PSTFormatting of this note might be different fro m the original. [facility] Department of Emergency Medicine No flowsheet data found. History of Present Illness Patient Identification Jania is a 63 y.o. male. Patient information was obtained from: patient. History/Exam limitations: none. 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 states he was walking to the bathroom, bent over to get something off the huyen or and he felt chest pain. pain is 8/10. There is no radiation of his pain he denies nause a vomiting or fatigue. He also feels short of breath for about 2 hours. He has a dry cough -chronically He has no calf pain. No abdominal pain. He went to bed feeling fine. He is an insulin dependent diabetic who states his blood sugars usually run about 250. He lives alone. PCP: Yu Pack Past Medical History: Diagnosis Date Acute pulmonary embolism (HCC) 10/14/2017 Anxiety ARF (acute renal failure) (HCC) 03/02/2013 Atrial fibrillation (HCC) Basal cell carcinoma 09/26/2012 arm and back COPD (chronic obstructive pulmonary disease) ([facility]) 03/02/2013 hypoxemia on 2 lts nc Depression Development delay Diabetes mellitus type II DVT (deep venous thrombosis) ([facility]) 03/29/2018 Facial droop 07/08/2013 GIB (gastrointestinal bleeding) 03/02/[address] Nur, rectal ulcers, nodule of GE junction Hypercholesterolemia 07/08/2013 Hyperlipidemia Hypertension longterm (current) use of 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 Obesity, Class I, BMI 30-34.9 07/08/2013 WARD (obstructive sleep apnea) 08/11/2012 does not use CPAP because of the noise Other chronic pain Renal failure Stroke (HCC) TIA (transient ischemic attack) Unspecified visual disturbance reading glasses Past Surgical History: Procedure Laterality Date ABDOMEN SURGERY CHOLECYSTECTOMY CHOLECYSTECTOMY, LAPAROSCOPIC 09/12/2012 Procedure: LAPAROSCOPIC - CHOLECYSTECTOMY; Surgeon: Jevon Vargas DO; Location: [facility] MAIN OR; Service: General; 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; COLONOSCOPY COLONOSCOPY 03/04/2013 Procedure: COLONOSCOPY; Surgeon: Howie Gibson MD; Location: [facility] ENDOSCOPY; Service: Gastroen terology; 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; HERNIA REPAIR 07/03/2013 Procedure: LAPAROSCOPIC - HERNIA - INCISIONAL; Surgeon: Jevon Vargas DO; Location: [facility] MAIN OR; Service: General; 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; KNEE SURGERY rt knee, patella LEG SURGERY LLE OTHER SURGICAL HISTORY UNLISTED PROCEDURE ARTHROSCOPY OTHER SURGICAL HISTORY Left 05/05/2014 SKIN LESION EXCISION - Procedure: EXCISION - LESION - FROZEN SECTION; Surgeon: Sy murcia MD; Location: [facility] MAIN OR; Service: Plastics; Laterality: Left; forearm SKIN BIOPSY SKIN CANCER EXCISION Left 10/10/2012 Procedure: EXCISION - SKIN CANCER; Surgeon: Sy Fierro MD; Location: [facility] MAIN OR; Service: Plastics; Laterality: Left; upper arm and upper back w/frozen section UPPER GASTROINTESTINAL ENDOSCOPY UPPER GASTROINTESTINAL ENDOSCOPY 03/03/2013 Procedure: ESOPHAGOGASTRODUODENOSCOPY; Surgeon: Howie Gibson MD; Location: [facility] ENDOSCOPY; Se rvice: Gastroenterology; 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; GREY PERCHER Home Medications Medication Sig acetaminophen (TYLENOL) 325 mg tablet Take 2 tablets by mouth every 4 hours as needed f or Pain (or fever >= 38.6 C (101.5 F)). (Patient not taking: Reported on 03/12/2019) apixaban (ELIQUIS) 5 mg tablet Take 1 [...] nightly. Insulin Pen Needle (BD PEN NEEDLE KYWA U/F) 32G X 4 MM MISC For [...] Lives alone x 1 wk, moved from [facility], , 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 2 falls in the last 6 months. Family History Problem Relation Age of Onset Heart disease Father Heart disease Sister Diabetes, NIDDM Sister Other (see comment) Brother Heart Problems Review of Systems ROS Constitutional: Negative for: fever, chills, fatigue Eyes: Negative for: irritated eyes, visual changes Nose: Negative for: Rhinorrhea, congestion Throat: Negative for: sore throat Neck: Negative for: Neck pain Cardiovascular/Respiratory: Positive for: chest pain, shortness of breath, cough Gastrointestinal: Negative for: abdominal pain, vomiting, diarrhea Genitourinary: Negative for: dysuria Musculoskeletal: Negative for: myalgias and arthralgias Skin: Negative for: rashes Neuro and psych: Negative for: headache, syncope, numbness or tingling Endocrine/Heme/Lymph: Negative for: swollen lymph nodes Physical Exam Temp: 36.2 C (97.1 F) Pulse: 67 Resp: 20 BP: (!) 192/93 SpO2: 99 % Pulse Oximetry interpretation: Normal elevated blood pressure 192/93 Physical Exam General: Alert, in no apparent distress, he is sitting up speaking in full sentences in no distress he is asking for food. Eyes: Conjunctiva clear, non-icteric, no palor Neck: Normal inspection Supple Cardiovascular: Rate and rhythm regular Respiratory: Breath sounds clear bilaterally Abdomen: Soft, non-tender Skin: Color normal, no pallor, no jaundice, no cyanosis, no diaphoresis Warm and dry No rashes Neuro: No motor deficit No sensory deficit Medical Decision Making and Emergency Department Course Care initiated Patient presents with chest pain after bending over on his way to the bathroom. Pain is 8/ 10 and sharp it does not radiate anywhere. He has been feeling short of breath for the last 2 hours. He denies any calf pain or abdominal pain. I will do cardiac panel, EKG, CBC CMP troponin and recheck. He asked for food soon as he got here. Patient tells me that he is allergic to nitroglycerin with a swollen tongue. I have asked him what he usually receives for chest pain in the past he tells me Tylenol. EKG cleared by Dr Kwong, normal sinus rhythm heart rate 62, no [facility], no change from his last EKG on 03/21/2019 0515 tylenol ordered for pain 0524 tylenol given, no chest pain per nurse Teresita and he refused toradol. CBC normal except elevated WBC 11.37 Troponin is normal CMP is normal except elevated blood sugar of 285--states his normal run about 250 I have discussed all normal lab findings. Chest x-ray is negative. 0550 recheck chest pain is 8/10, appears in no distress, he agrees to get IV toradol 0605 pt is asking for some food and phone to call his ex father in law and let him know he' s in the hospital. I have discussed case with Dr. Kwong , Dr. Kwong will go and evaluate him now. 0610 Dr Kwong discussed that there is no medical emergency today based off his normal EKG and normal labs and normal chest x-ray. And he will be discharged home. Patient continues to ask for food. Dr Kwong states he can have crackers. 0620 patient is asking for the nurse to remove his IV because he wants to go home and eat b reakfast. Discussed signs and symptoms that would warrant return. rec f/u with pcp or return here if worsen. Patient voices understanding of all instructions and agree on treatment plan. Medications acetaminophen (TYLENOL) tablet 1,000 mg (1,000 mg Oral Given 04/04/19523) ketorolac (TORADOL) injection 15 mg (15 mg Intravenous Given 04/04/19550) Temp: 36.2 C (97.1 F) Pulse: 68 Resp: 22 BP: 165/75 SpO2: 93 % Records Reviewed Old medical records. Previous electrocardiograms. Nursing notes. Previous radiology studies. Laboratory Evaluation Labs Reviewed CBC WITH DIFFERENTIAL - Abnormal; Notable for the following components: Result Value WBC 11.37 (*) Absolute Lymphocytes 4.05 (*) Absolute Monocytes 1.08 (*) Eosinophils, Absolute 0.54 (*) All other components within normal limits COMPREHENSIVE METABOLIC PANEL - Abnormal; Notable for the following components: Glucose 285 (*) ALK PHOS 150 (*) All other components within normal limits TROPONIN I Radiology and EKG Evaluation Recent Results (from the past 360 hour(s)) XR Chest PA and Lateral Narrative CHEST PA AND LATERAL CLINICAL INFORMATION: Dizziness and coughing up blood. COMPARISON: XR CHEST PA AND LATERAL (12/12/2018); XR CHEST PA AND LATERAL (12/01/2018); XR CHEST 1 VIEW (10/16/2018); FINDINGS: Heart, lungs and vessels normal. No pneumothorax, pleural effusion or adenopathy. No significant bone abnormality. Impression Negative chest. Signed by: Irina Jackson Dwane Sign Date/Time: 03/21/2019 7:01 PM XR Chest PA and Lateral Narrative CHEST PA AND LATERAL CLINICAL INFORMATION: Chest pain. COMPARISON: XR CHEST PA AND LATERAL (03/21/2019); CTA CHEST PULMONARY EMBOLISM W CONTRAST (09/21/2018); FINDINGS: Cardiomediastinal contours are within normal limits. Lungs are clear. No large effusion. No visible pneumothorax. No acute bony abnormalities. Impression Negative chest. Signed by: Irina Rowe Richard Sign Date/Time: 04/04/2019 5:02 AM Clinical Impression ICD-10-CM ICD-9-CM 1. Chest pain, unspecified type R07.9 786.50 Disposition: Follow-up Information Mireya Pack NP. Specialty: Nurse Practitioner - Primary Care Why: As needed, If symptoms worsen Contact information: [address] [facility] [address] EMERGENCY CENTER. Specialty: Emergency Medicine Why: As needed, If symptoms worsen Contact information: [address] [facility] [id number] JULISSA Ye PA-C 04/04/19 0807 Associated attestation - Mik Kwong MD - 04/04/2019 10:31 AM PSTI was personally brenna cuellar for consultation in the emergency department. I have reviewed the note and supervise d the Advanced Grading Machine Feeder (APC). I spoke with the patient at 6:04 AM. I feel he is appropriate for discharge. Agnes Ponce sa, RN - 04/04/2019 4:12 AM PSTBed: ED01 Expected date: Expected time: Means of arrival: Comments: 1723 documented in th is encounter Plan of Treatment +--------+---------+ + + + | Date | Type | Specialty | Care Team | Description | +--------+---------+ + + + | 09/10/ | Office | Geriatric Medicine | Mireya Pack, | | 2019 | Visit | | CIVIL DRAFTING TECHNICIAN [address] | | | | | | [address] [place], | | | | | | [place] [address] | | | | | | [phone] | | | | | | | | +--------+---------+ + + + | 09/29/ | Office | Urology | Mireya Pack, | | | 2019 | Visit | | CIVIL DRAFTING TECHNICIAN [address] | | | | | | [address] [place], | | | | | | [place] [address] | | | | | | [phone] | | | | | | | | | | | | Toy Wild, DO | | | | | | [address] | | | | | | [place] [address] | | | | | | [phone] | | | | | | | | +--------+---------+ + + + + +------+--------+ + + | Name | Type | Priori | Associated Diagnoses | Date/Time | | | | ty | | | + +------+--------+ + + | ED INFORMATION | COLTON | Routin | | 04/04/2019 4:12 AM | | EXCHANGE | | e | | PST | + +------+--------+ + + documented as of this encounter Procedures + +--------+ + + + | Procedure Name | Priori | Date/Time | Associated Diagnosis | Comments | | | ty | | | | + +--------+ + + + | XR CHEST PA AND | ESCOBAR | 04/04/2019 | | Results for this | | LATERAL | | 4:55 AM | | procedure are in the | | | | PST | | results section. | + +--------+ + + + | TROPONIN I | STAT | 04/04/2019 | | Results for this | | | | 4:20 AM | | procedure are in the | | | | PST | | results section. | + +--------+ + + + | CBC WITH | STAT | 04/04/2019 | | Results for this | | DIFFERENTIAL | | 4:20 AM | | procedure are in the | | | | PST | | results section. | + +--------+ + + + | COMPREHENSIVE | STAT | 04/04/2019 | | Results for this | | METABOLIC PANEL | | 4:20 AM | | procedure are in the | | | | PST | | results section. | + +--------+ + + + | ECG 12 LEAD | STAT | 04/04/2019 | | Results for this | | | | 4:17 AM | | procedure are in the | | | | PST | | results section. | + +--------+ + + + | ED INFORMATION | Routin | 04/04/2019 | | | | EXCHANGE | e | 4:12 AM | | | | | | PST | | | + +--------+ + + + +---+--------+ | | | | | Proced | | | ure | | | Note - | | | Richard, | | | Lab In | | | | | | Hlseve | | | n - | | | | | | 2019 | | | 4:13 | | | AM PST | | [...] | | | FICATI | | | ON?02/ | | | | | | 0 | | | 04:12? | | | GR, | | | NORAH | | | | | | M?MRN: | | | | | | [id number] | | | [id number] | | | riteri | | | [...] | | | Center | | | 15 0 | | | [place] | | [...] | | | int | | | Feb | | | 27, | | | 2020 | | | [facility] | | | | | | [facility] | | | al | | | [facility] | | | [place] | | | [place] | | | Emerge | | | ncy | | | Chest | | | Pain | | | Feb | | | [...] | | | ysis | | | 1 | | | [...] | | s [facility] | | | [place] | | | [place] | | | [...] | | urgenc | | | y | | | Recent | | | [...] | | | [place] | | | [facility] | | | al | | | [...] | | | /notif | | | y/2aff | | | [id number] | | | [id number] | | | [id number] | | | [id number] | | | 07cfde | | | 86 | | | PLEASE | | | [...] | | | m | +---+--------+ + +---+ +---+ + | ARRHYTHMIA MONITOR - | | 04/04/2019 | | Results for this | | EXTERNAL SCAN | | 12:00 AM | | procedure are in the | | | | PST | | results section. | + +---+ +---+ + documented in this encounter Results XR Chest PA and Lateral (04/04/2019 4:55 AM PST) + + | Specimen | + + | | + + + + + | Impressions | Performed At | + + + | Negative chest. Signed by: Irina Rowe, Kishan Pina | [facility] | | Date/Time: 04/04/2019 5:02 AM | | + + + + + + | Narrative | Performed At | + + + | CHEST PA AND LATERAL CLINICAL INFORMATION: Chest pain. | [facility] | | COMPARISON: XR CHEST PA AND LATERAL (03/21/2019); CTA CHEST PULMONARY | | | EMBOLISM W CONTRAST (09/21/2018); FINDINGS: Cardiomediastinal | | | contours are within normal limits. Lungs are clear. No large | | | effusion. No visible pneumothorax. No acute bony abnormalities. | | | | | + + + + + | Procedure Note | + + | Richard, Rad Results In 04/04/2019 5:05 AM PST | | CHEST PA AND LATERAL | | | | CLINICAL INFORMATION: | | Chest pain. | | | | COMPARISON: | | XR CHEST PA AND LATERAL (03/21/2019); CTA CHEST PULMONARY EMBOLISM W | | CONTRAST (09/21/2018); | | | | FINDINGS: | | Cardiomediastinal contours are within normal limits. Lungs are clear. | | No large effusion. No visible pneumothorax. No acute bony | | abnormalities. | | | | IMPRESSION: | | Negative chest. | | | | | | | | Signed by: Irina Rowe Richard | | Sign Date/Time: 04/04/2019 5:02 AM | + + + +---------+ + + | Performing | Address | City/State/Zipcode | Phone Number | | Organization | | | | + +---------+ + + | [facility] | | | | + +---------+ + + Troponin I (04/04/2019 4:20 AM PST) + + + + + + | Component | Value | Ref Range | Performed | Pathologist | | | | | At | Signature | + + + + + + | Troponin I | 0.026Comment: 0.04 | 0.00 - 0.04 | [facility] [...] at | | | | | | [facility];[address] | | | | | | [address];[place] [address] | | | | + + + + + + + + | Specimen | + + | Blood | + + + + + + + | Performing | Address | City/State/Zipcode | Phone Number | | Organization | | | | + + + + + | [facility] | [address] | [place] [address] | [phone] | + + + + + Comprehensive Metabolic Panel (04/04/2019 4:20 AM PST) + + + + + [...] + + + | Anion Gap | 11 | 5 - 20 mmol/L | [facility] | | | | | | LABORATORY | | + + + + + + | Glucose | 285 (H) | 65 - 99 mg/dL | [facility] | | | | | | LABORATORY | | + + + + + + | BUN | 13 | 8 - 25 mg/dL | [facility] | | | | | | LABORATORY | | + + + + + + | Creatinine | 0.89 | 0.70 - 1.30 | [facility] | | | | | mg/dL | LABORATORY | | + + + + + + | BUN/Creatin | 15 | | [facility] | | | ine Ratio | | | LABORATORY | | + + + + + + | Calcium | 9.5 | 8.5 - 10.5 | [facility] | | | | | mg/dL | LABORATORY | | + + + + + + | Protein, | 6.9 | 6.3 - 8.2 g/dL | [facility] [...] + + + + | BILIRUBIN, | 0.8 | 0.1 - 1.5 mg/dL | [facility] | | | TOTAL | | | LABORATORY | | + + + + + + | ALK PHOS | 150 (H) | 35 - 115 U/L | [facility] | | | | | | LABORATORY | | + + + + + + | AST | 19 | 10 - 45 U/L | [facility] | | | | | | LABORATORY | | + + + + + + | ALT | 17 | 10 - 65 U/L | [facility] | | | | | | LABORATORY | | + + + + + + | Estimated | >60Comment: GFR <60: | >60 | [facility] | | | GFR | [...] | | | | | performed at [facility] | | | | | | [facility];[place], [place] | | | | | | [address] | | | | + + + + + + + + | Specimen | + + | Blood | + + + + + + + | Performing | Address | City/State/Zipcode | Phone Number | | Organization | | | | + + + + + | [facility] | [address] | [place] [address] | [phone] | + + + + + CBC with Differential (04/04/2019 4:20 AM PST) + + + + + + | Component | Value | Ref Range | Performed | Pathologist | | | | | At | Signature | + + + + + + | WBC | 11.37 (H) | 3.80 - 11.00 | [facility] | | | | | K/uL | LABORATORY | | + + + + + + | Red Blood | 5.57 | 4.20 - 5.70 | [facility] | | | Cells | | M/uL | LABORATORY | | + + + + + + | Hemoglobin | 15.5 | 13.2 - 17.0 | [facility] | | | | | g/dL | LABORATORY | | + + + + + + | Hematocrit | 46.2 | 39.0 - 50.0 % | [facility] [...] + + + + | RDW-SD | 40.7 | 37 - 53 fl | [facility] [...] + + + + | % | 49.10 | % | [facility] | | | Neutrophils | | | LABORATORY | | + + + + + + | IMMATURE | 0.50 | % | [facility] | | | GRANULOCYTE | | | LABORATORY | | + + + + + + | % | 35.60 | % | [facility] | | | Lymphocytes | | | LABORATORY | | + + + + + + | Monocyte % | 9.50 | % | [facility] | | | | | | LABORATORY | | + + + + + + | Eosinophils | 4.70 | % | [facility] | | | % | | | LABORATORY | | + + + + + + | Basophils % | 0.60 | % | [facility] | | | | | | LABORATORY | | + + + + + + | Neutrophils | 5.57 | 1.90 - 7.40 | [facility] | | | , Absolute | | K/uL | LABORATORY | | + + + + + + | IMMATURE | 0.06Comment: NOTE NEW | 0.00 - 0.07 | [facility] | | | GRANS AB | REFERENCE RANGE | K/uL | LABORATORY | | + + + + + + | Absolute | 4.05 (H) | 1.00 - 3.90 | [facility] | | | Lymphocytes | | K/uL | LABORATORY | | + + + + + + | Absolute | 1.08 (H) | 0.00 - 0.80 | [facility] | | | Monocytes | | K/uL | LABORATORY | | + + + + + + | Eosinophils | 0.54 (H) | 0.00 - 0.50 | [facility] | | | , Absolute | | K/uL | LABORATORY | | + + + + + + | Basophils, | 0.07Comment: Testing | 0.00 - 0.10 | [facility] | | | Absolute | performed at [facility];[address] | K/uL | LABORATORY | | | | [address];[place] | | | | | | [address] | | | | + + + + + + + + | Specimen | + + | Blood | + + + + + + + | Performing | Address | City/State/Zipcode | Phone Number | | Organization | | | | + + + + + | [facility] | [address] | [place] [address] | [phone] | + + + + + ECG 12 lead (04/04/2019 4:17 AM PST) + + + + + + | Component | Value | Ref Range | Performed | Pathologist | | | | | At | Signature | + + + + + + | VENTRICULAR | 62 | BPM | [facility] | | | RATE EKG | | | | | + + + + + + | ATRIAL RATE | 62 | BPM | [facility] | | + + + + + + | P-R | 164 | ms | [facility] | | | INTERVAL | | | | | + + + + + + | QRS | 80 | ms | [facility] | | | DURATION | | | | | + + + + + + | Q-T | 440 | ms | [facility] | | | INTERVAL | | | | | + + + + + + | Q-T | 446 | ms | [facility] | | | INTERVAL | | | | | | (CORRECTED) | | | | | + + + + + + | P WAVE AXIS | 29 | degrees | [facility] | | + + + + + + | QRS AXIS | 45 | degrees | [facility] | | + + + + + + | T AXIS | 25 | degrees | [facility] | | + + + + + + | INTERPRETAT | Normal sinus | | [facility] | | | ION TEXT | rhythmNonspecific T wave | | | | | | abnormalityAbnormal | | | | | | ECGWhen compared with | | | | | | ECG of 21-MAR-2019 | | | | | | 18:32,Premature atrial | | | | | | complexes are no longer | | | | | | PresentNonspecific T | | | | | | wave abnormality has | | | | | | replaced inverted T | | | | | | waves in Lateral | | | | | [...] (500), | | | | | | science editor Mel Bruno | | | | | | (18) on 04/04/2019 | | | | | | 3:10:47 PM | | | | + + [...] | | | + +---------+ + + ARRHYTHMIA MONITOR - EXTERNAL SCAN (04/04/2019 12:00 AM PST) + + + | Narrative | Performed At | + + + | Ordered by an | | | unspecified provider. | | + + + documented in this encounter Visit Diagnoses + + | Diagnosis | + + | Chest pain, unspecified type - Primary | + + documented in this encounter Administered Medications + +--------+ + +------+------+ | Medication Order | MAR | Action | Dose | Rate | Site | | | Action | Date | | | | + +--------+ + +------+------+ | acetaminophen (TYLENOL) tablet | Given | 04/04/19 | 1,000 mg | | | | 1,000 mg 1,000 mg, Oral, ONCE, | | 20 5:24 | | | | | Joselyn 04/04/19 at 0520, For 1 dose | | AM PST | | | | + +--------+ + +------+------+ +---+---+ | | | +---+---+ + +-------+ +-------+---+---+ | ketorolac (TORADOL) injection | Given | 04/04/19 | 15 mg | | | | 15 mg 15 mg, Intravenous, ONCE, | | 20 5:51 | | | | | Joselyn 04/04/19 at 0540, For 1 dose | | AM PST | | | | + +-------+ +-------+---+---+ +---+---+ | | | +---+---+ documented in this encounter"
--- OUTSIDE RECORDS SUMMARY | ~2019-09-09 | XMS | Encounter Summary ---
Demographics + + + | Address | [address] | | | [place] [address] | + + + | Home Phone | | + + + | Preferred Language | Unknown | + + + | Marital Status | | + + + | Jehovah'S Witness Affiliation | 1027 | + + + | Race | Unknown | + + + | Ethnic Group | Unknown | + + + Author + + + | Author | [facility] | | | and [place] | + + + | Organization | [facility] | | | and [place] | + + + | Address | Unknown | + + + | Phone | Unavailable | + + + Support + + + + + | Name | Relationship | Address | Phone | + + + + + | Sammi Kohler | ECON | [place] [address] | | + + + + + Care Team Providers + +------+ + | Care Show Card Letterer Name | Role | Phone | + +------+ + | Mireya Pack NP | PCP | | + +------+ + Encounter Details +--------+ + + + + | Date | Type | Department | Care Team | Description | +--------+ + + + + | 10/18/ | Orders Only | [facility] | Bruno Burnham | | | 2018 | | CONVERSION [address] | S, MD [address] | | | | [address] | [address]VD [place], [place] | | | | | [place], [place] | [address] | | | | | [address] | | | | | | [phone] | | | +--------+ + + + [...] as of this encounter Plan of Treatment +--------+---------+ + + + | Date | Type | Specialty | Care Team | Description | +--------+---------+ + + + | 09/10/ | Office | Geriatric Medicine | Mireya Pack, | | | 2019 | Visit | | COLOR CONTROL SUPERVISOR [address] | | | | | | [address] [place], | | | | | | [place] [address] | | | | | | [phone] | | | | | | | | +--------+---------+ + + + | 09/29/ | Office | Urology | Mireya Pack, | | | 2019 | Visit | | COLOR CONTROL SUPERVISOR [address] | | | | | | [address] [place] | | | | | | [place] [address] | | | | | | [phone] | | | | | | | | | | | | [place], | | | | | | [address] | | | | | | [place] [address] | | | | | | [phone] | | | | | | | [...]
--- OUTSIDE RECORDS SUMMARY | ~2019-09-09 | XMS | Encounter Summary ---
Demographics + + + | Address | [address] | | | [place] [address] | + + + | Home Phone | | + + + | Preferred Language | Unknown | + + + | Marital Status | | + + + | Nondenominational Affiliation | 1027 | + + + | Race | Unknown | + + + | Ethnic Group | Unknown | + + + Author + + + | Author | [facility] | | | and [place] | + + + | Organization | [facility] | | | and [place] | + + + | Address | Unknown | + + + | Phone | Unavailable | + + + Support + + + + + | Name | Relationship | Address | Phone | + + + + + | Sammi Kohler | ECON | [place] [address] | | + + + + + Care Team Providers + +------+ + | Care Registered Nurse Hh Case Manager Name | Role | Phone | + +------+ + PCP | Unavailable | + +------+ + Encounter Details +--------+ + + + + | Date | Type | Department | Care Team | Description | +--------+ + + + + | 12/24/ | Emergency | [facility] | Norah Don, | Uncontrolled | | 2012 | | [facility] | MD [address] | hypertension | | | | EMERG[facility]Y CENTER | [place], [place] | | | | | [address] | [address] | | | | | [place], [place] | | | | | | [address] | | | | | | [phone] | | | +--------+ + + + [...] ED Notes Conversion Transaction, Provider Unknown - 12/24/2012 10:03 PM PSTFormatting of this note m ight be different from the original. ED Notes by Diane Fischer RN at 12/24/122202 Author: Diane Fischer RN Service: (none) Author Type: Registered Nurse Filed: 12/24/122202 Date of Service: 12/24/122202 Status: Signed Lead Systems Architect: Diane Fischer RN (Registered Nurse) at bedside. Diane Fischer RN 12/24/122202 Norah Arnold MD - 12/24/2012 8:50 PM PST ED Provider Notes by Norah Don MD at 12/24/122049 Author: Norah Don MD Service: (none) Author Type: Physician Filed: 12/24/12 4909 Date of Service: 12/24/122049 Status: Signed Lead Systems Architect: Norah Don MD (Physician) Located Within [facility] Department of Emergency Medicine History of Present Illness Norah Gr is a 57 y.o. male presenting with blood pressure problems. Patient informati on was obtained from patient. History/Exam limitations: none. Patient presented to the [facility] [place] [facility]. Chief Complaint Patient presents with Hypertension x10 days, took blood pressure medication one hour ago Chest Pain pt reports intermittent "sharp" L-sided chest pain for one week, pt denies pain at this t silva Norah Gr presents for evaluation of blood pressure issues. Has been having BP going u p over the last two weeks and BP has been high. Today was 210/110 but has had longstanding HTN in the past and has a list of medications. Lives at [facility] living and was c hecked out and felt to come to the ER. Tried to see his regular doctor Jerrell Gutiérrez but c an't be seen for 2 weeks. He feels sad and lightheaded and anxious. The symptom onset was gradual one week ago, and has had a waxing and waning course. The patient had 3 seconds of l eft sided chest pain this evening as well. This occurs off and on now for an hour and a miesha f to two hours rated as a 4/10. This is located in the left chest, and is rated as mild. The re is no radiation. This is made worse by nothing and is relieved by nothing. The patient a lso complains of the following additional symptoms: fatigue. The patient denies fevers. Ca re prior to arrival consisted of rest with some relief. The patient has had these symptoms before. Primary care provider: JERRELL GUTIÉRREZ Past Medical History Diagnosis Date Diabetes mellitus type II Atrial fibrillation Hypertension Hyperlipidemia Anxiety Depression WARD (obstructive sleep apnea) 08/11/2012 Basal cell carcinoma 09/26/2012 Unspecified visual disturbance Past Surgical History Procedure Date Unlisted procedure arthroscopy Knee surgery Leg surgery LLE Colonoscopy Cholecystectomy, laparoscopic 09/12/2012 Procedure: LAPAROSCOPIC - CHOLECYSTECTOMY; Surgeon: Jevon Vargas DO; Location: [facility]; Service: General; 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; Abdominal surgery Cholecystectomy Skin cancer excision 10/10/2012 Procedure: EXCISION - SKIN CANCER; Surgeon: Sy Fierro MD; Location: [facility] ; Service: Plastics; Laterality: Left; upper arm and upper back w/frozen section Prior to Admission medications Medication Sig Start Date End Date Taking? Authorizing Provider ARIPiprazole (ABILIFY) 10 MG tablet Take 10 mg by mouth daily. Historical Provider atenolol (TENORMIN) 100 MG tablet Take 200 mg by mouth nightly. Historical Provider cloNIDine (CATAPRES) 0.1 MG tablet Take 1 tablet by mouth 2 (two) times daily. 09/14/12 4 Augustine Agosto MD clopidogrel (PLAVIX) 75 MG [...] (two) times daily before meals. Historical Provider hydrocodone-acetaminophen (VICODIN ES) 7.5-750 MG per tablet Take 1 tablet by mouth every 6 (six) hours as needed for Pain. 10/10/12 10/10/13 Sy Fierro MD ipratropium-albuterol (COMBIVENT) 18-103 MCG/ACT inhaler Inhale 2 puffs into the lungs ever y 6 (six) hours as needed for Wheezing. 08/14/12 08/14/13 Josefa Ramon MD lisinopril (PRINIVIL,ZESTRIL) 20 MG tablet Take 1 tablet by mouth daily. 09/14/12 09/14/13 Paulina Agosto MD METFORMIN HCL PO Take 1,000 mg by mouth 2 (two) times daily. Historical Provider paroxetine (PAXIL) 40 MG tablet Take 40 mg by mouth every morning. Historical Provider pravastatin (PRAVACHOL) 20 MG tablet Take 20 mg by mouth nightly. Historical Provider ranitidine (ZANTAC) 150 MG tablet Take 150 mg by mouth daily. Historical Provider tiotropium (SPIRIVA) 18 MCG inhalation capsule Inhale 18 mcg into the lungs daily. Histo rical Provider Allergies Allergen Reactions B12-Ca Rash "B12" makes gives him a rash History Social History Marital Status: Spouse Name: N/A Number of Children: 1 Years of Education: N/A Occupational History Not on file. Social History Main Topics Smoking status: Never Smoker Smokeless tobacco: Never Used Alcohol Use: Yes occasional Drug Use: No Sexually Active: Not Currently Other Topics Concern Not on file Social History Narrative Lives in [place], [place], full code Patient is a local resident and lives in assisted living. Patient has good social support Family History Problem Relation Age of Onset Heart disease Father Heart disease Sister Diabetes type II Sister Review of Systems Review of Systems Constitutional: Positive for malaise/fatigue. Negative for fever, chills and weight loss. "I have been gaining weight cause the food is so good" Cardiovascular: Positive for chest pain. Gastrointestinal: Positive for diarrhea. Skin: Negative for itching and rash. Neurological: Positive for dizziness. Psychiatric/Behavioral: The patient is nervous/anxious. Ten systems reviewed and otherwise negative Physical Exam BP 194/90 | Pulse 63 | Temp 98.1 F (36.7 C) (Oral) | Resp 16 | SpO2 95% Vital signs ar e reviewed and show elevated blood pressure. Pulse Oximetry Interpretation: Normal on room air General: Alert, odd affect Eyes: Normal inspection, pupils equal and round, non-icteric ENT: Ears normal, no drainage Nose normal and no deformity Pharynx: Mucosa is normal, uvula is midline and no tonsillar enlargement Neck: Normal inspection, supple, no lymphadenopathy, no meningeal signs. Heart: Rate and rhythm normal, no murmurs, no S3/4, no extra heart sounds Respiratory: Breath sounds are normal, normal chest rise and fall, no obvious trauma Abdomen: Soft and non tender and no mass, no guarding and no rebound Skin: Color normal, no petechia or rash, warm and dry Neuro: No motor deficits, moving all extremities equally, equal radiation protection engineer, no sensory deficit. Psych: Appropriate affect, no evidence of hallucinations or delusions. Not suicidal or ho micidal at the time of my examination Ext: No edema Medical Decision Making and Emergency Department Course ED Department Course 20:45. Patient care initiated. After careful consideration of the patient's past medical history, past surgical history an d social history and my findings on examination I feel that the list of possible emergent di agnoses that the patient requires an evaluation for includes (but is not limited to) hepatit is, anemia, dehydration, acute renal failure, electrolyte changes, and arrhythmia. I feel th at laboratory testing and further diagnostic testing is necessary to ensure that there is no acute emergent cause of the symptoms. As part of workup today, I have ordered a CBC with di ff, complete metabolic panel and 12 lead EKG to evaluate this differential diagnosis. In [facility] this sounds like a chronic issue 21:52. The patient has been having BP running high for months. The patient may benefit fr om increasing his clonidine to tid rather than bid. Otherwise, no indication of any emergen t condition. Labs are normal. Will discharge home At the conclusion of this Emergency Department visit today, I have reviewed my diagnostic i mpression with the patient. We have specifically discussed the signs and symptoms that woul d constitute the need for an immediate return to the Emergency Department, the importance of continued outpatient follow up with the PMD and further testing (if deemed necessary by the patient's doctor) and the importance of compliance with the discharge instructions. I have answered the questions and concerns that the patient has to the best of my ability and feel that there is no emergent medical condition at the conclusion of the visit. I feel that no emergent condition is present on discharge that warrants further testing at this time. Patient Vitals for the past 24 hrs: BP Temp Temp src Pulse Resp SpO2 12/24/12 2222 186/87 mmHg - - - 16 - 12/24/12 2121 194/93 mmHg - - 63 16 96 % 12/24/12 2047 194/90 mmHg 98.1 F (36.7 C) Oral 63 16 95 % The vital sings above have been reviewed prior to disposition Medications given in the Emergency Department: Medications sodium chloride 0.9 % flush 10 mL (not administered) citalopram (CELEXA) 40 MG tablet (not administered) ibuprofen (ADVIL,MOTRIN) 200 MG tablet (not administered) cloNIDine (CATAPRES) tablet 0.1 mg (not administered) aspirin chewable tablet 324 mg (324 mg Oral Given 12/24/122113) Records Reviewed Old medical records. Nursing notes for this Emergency Department visit were reviewed. [facility] recent ER visits for the same complaint Consultations and phone calls: NONE Laboratory Evaluation: Results Procedure Component Value Ref Range Date/Time Cardiac Panel [[id number]] (Abnormal) Collected:12/24/122099 Order Status:Completed Updated:12/24/122136 WBC 9.6 3.8 - 11.0 K/uL RBC 5.00 4.20 - 5.70 M/uL HGB 13.0 (L) 13.2 - 17.0 g/dL HCT 39.9 39.0 - 50.0 % MCV 79.8 (L) 80.0 - 100.0 fl MCH 25.9 (L) 27.0 - 34.0 pg MCHC 32.5 32.0 - 35.5 g/dL RDW SD 47.7 37 - 53 fl PLT 242 150 - 400 K/uL MPV 7.3 fl DIFF TYPE AUTOMATED NEUTROPHILS 54.6 % LYMPHOCYTES 32.2 % MONOCYTES 9.6 % EOSINOPHILS 2.9 % BASOPHILS 0.7 % NEUTROPHILS ABS 5.2 1.9 - 7.4 K/uL LYMPHOCYTES ABS 3.1 1.0 - 3.9 K/uL MONOCYTES ABS 0.9 (H) 0 - 0.8 K/uL EOSINOPHILS ABS 0.3 0 - 0.5 K/uL BASOPHILS ABS 0.1 0 - 0.1 K/uL SODIUM 140 135 - 143 mmol/L POTASSIUM 3.6 3.5 - 4.9 mmol/L CHLORIDE 103 99 - 109 mmol/L CO2 29 23 - 32 mmol/L ANION GAP AGAP 12 5 - 20 mmol/L GLUCOSE 222 (H) 65 - 99 mg/dL BUN 16 8 - 25 mg/dL CREATININE 1.09 0.70 - 1.30 mg/dL BUN/CREAT 15 CALCIUM 8.7 8.5 - 10.2 mg/dL TOTAL PROTEIN 7.4 6.3 - 8.2 g/dL Albumin 3.4 (L) 3.6 - 5.0 g/dL GLOBULIN 4.0 1.3 - 4.9 g/dL A/G 0.8 (L) 1.0 - 2.4 TBIL 0.2 0.1 - 1.5 mg/dL ALK PHOS 102 35 - 115 U/L AST 25 10 - 45 U/L ALT 23 10 - 65 U/L EGFR >60 >60 mL/min/1.73m2 CPK 187 55 - 400 U/L INR 1.0 APTT 30 24 - 40 seconds MMB 2.3 0.5 - 3.6 ng/mL CK-MB Index 1.2 POC cardiac troponin [[id number]] Collected:12/24/122105 Order Status:Completed Updated:12/24/122119 POC CARDIAC TROPONIN 0.01 0.00 - 0.10 ng/mL Radiology and EKG Evaluation Imaging Results XR Chest PA and Lateral (In process) EKG Interpretation - December 24, 2012 at 20:52 Rhythm: Sinus Ventricular Rate: 61 CA Interval: Normal ST Segments: Normal Significant Q-waves: None Blocks: None [place]: Normal Additional Comments: No acute ischemia ED Diagnosis Final diagnosis Uncontrolled hypertension Disposition: ED Disposition Discharge Condition at discharge: Stable . Follow-up Information Follow up With Details Comments Contact Carine Gutiérrez, DO to discuss any changes in your BP medications [address] [facility] [id number] Discharge Medications: New Prescriptions No new medications Discharge decision based on the following: no signs of end organ damage. Patient's conditi on is stable; patient is ambulatory; patient drinking fluids; patient's pain is controlled; patient's exam is stable; minimally abnormal test results; stable condition on repeat evalua tions; social support is adequate; transportation is available; follow-up is available; clin ical impression is consistent with outpatient treatment Additional Documentation Procedures Norah Don MD 12/24/12 9477 onversion Transact ion, Provider Unknown - 12/24/2012 8:42 PM PSTFormatting of this note might be different fr om the original. ED Notes by Jun Allen RN at 12/24/122041 Author: Jun Allen RN Service: (none) Author Type: Registered Nurse Filed: 12/24/122041 Date of Service: 12/24/122041 Status: Signed Lead Systems Architect: Jun Allen RN (Registered Nurse) Bed:12
Expected date:
Expected time:
Means of arrival:
Comments:
[facility] docume nted in this encounter Plan of Treatment +--------+---------+ + + + | Date | Type | Specialty | Care Team | Description | +--------+---------+ + + + | 09/10/ | Office | Geriatric Medicine | Mireya Pack, | | | 2019 | Visit | | REVERSE UNIT OPERATOR [address] | | | | | | [address] [place], | | | | | | [place] [address] | | | | | | [phone] | | | | | | | | +--------+---------+ + + + | 09/29/ | Office | Urology | Mireya Pack, | | 2019 | Visit | | REVERSE UNIT OPERATOR [address] | | | | | | [address] [place], | | | | | | [place] [address] | | | | | | [phone] | | | | | | | | | | | | [place], | | | | | | [address] | | | | | | [place] [address] | | | | | | [phone] | | | | | | | | +--------+---------+ + + + documented as of this encounter Procedures + +--------+ + + + | Procedure Name | Priori | Date/Time | Associated Diagnosis | Comments | | | ty | | | | + +--------+ + + + | XR CHEST 2 VIEWS | Routin | 12/24/2012 | | Results for this | | | e | 9:07 PM | | procedure are in the | | | | PST | | results section. | + +--------+ + + + | ECG 12 LEAD | Routin | 12/24/2012 | | Results for this | | | e | 8:52 PM | | procedure are in the | | | | PST | | results section. | + +--------+ + + + documented in this encounter Results XR Chest 2 Vws (12/24/2012 9:07 PM PST) + + | Specimen | + + | | + + + + + | Impressions | Performed At | + + + | 1. No radiographic findings to suggest acute pulmonary disease. | | | | | | 12:45 AM | | + + + + + + | Narrative | Performed At | + + + | [facility] XR CHEST 2 VIEW FRONTAL AND LATERAL 12/24/2012 9:07 | | | PM HISTORY: 57 years. Male. Short of breath TECHNIQUE: | | | XR CHEST 2 VIEW FRONTAL AND LATERAL. Dual-energy. Total of 4 | | | images obtained. COMPARISON: December 22, 2012 FINDINGS: | | | Cardiac size is normal. Normal pulmonary vascular pattern area in the | | | spine the relative flattened hemidiaphragms lung volumes appear low. | | | No segmental infiltrate. No pleural effusion. No pulmonary nodule or | | | mass. | | + + + + + | Procedure Note | + + | Richard, Rad Conversion - 09/28/2018 3:24 PM PDT [facility] GRXR CHEST 2 VIEW FRONTAL | | AND [id number]/24/2012 9:07 PM HISTORY:57 years. Male. Short of breath TECHNIQUE:XR | | CHEST 2 VIEW FRONTAL AND LATERAL. Dual-energy. Total of 4 images obtained. | | COMPARISON:December 22, 2012 FINDINGS:Cardiac size is normal. Normal pulmonary vascular | | pattern area in the spine the relative flattened hemidiaphragms lung volumes appear low. | | No segmental infiltrate. No pleural effusion. No pulmonary nodule or mass. IMPRESSION: | | 1. No radiographic findings to suggest acute pulmonary disease. | |XR CHEST 2 VIEW FRONTAL AND LATERAL. Dual-energy. Total of 4 images obtained. | | | |COMPARISON: | |December 22, 2012 | | | |FINDINGS: | |Cardiac size is normal. Normal pulmonary vascular pattern area in the spine the relative fl attened hemidiaphragms lung volumes appear low. No segmental infiltrate. No pleural effusion . No pulmonary nodule or mass. | | | |IMPRESSION: | |1. No radiographic findings to suggest acute pulmonary disease. | | | | | | | | | + + ECG 12 lead (12/24/2012 8:52 PM PST) + + + + + + | Component | Value | Ref Range | Performed | Pathologist | | | | | At | Signature | + + + + + + | DIAGNOSIS: | Normal sinus | | EXTERNAL | | | | rhythmCannot rule out | | LAB | | | | Inferior infarct , age | | | | | | undeterminedAbnormal | | | | | | ECGWhen compared with | | | | | | ECG of 22-DEC-2012 | | | | | | 08:15,No significant | | | | | | [...] (500), | | | | | | writer editor SANYA ALDANA ([id number]) | | | | | | on 12/25/2012 7:21:53 | | | | | | AM | | | | + + + + + + + + | Specimen | + + | | + + + + + | Narrative | Performed At | + + + | Historically converted procedure from [facility] [employer] environment | EXTERNAL LAB | + + + + +---------+ + + | Performing | Address | City/State/Zipcode | Phone Number | | Organization | | | | + +---------+ + + | EXTERNAL LAB | | | | + +---------+ + + documented in this encounter Visit Diagnoses + + | Diagnosis | + + | Uncontrolled hypertension Unspecified essential hypertension | + + documented in this encounter
--- OUTSIDE RECORDS SUMMARY | ~2019-09-09 | XMS | Encounter Summary ---
Demographics + + + | Address | [address] | | | [place] [address] | + + + | Home Phone | | + + + | Preferred Language | Unknown | + + + | Marital Status | | + + + | Restorationism Affiliation | [id number] | + + + | Race | Unknown | + + + | Ethnic Group | Unknown | + + + Author + + + | Author | [facility] | | | and [place] | + + + | Organization | [facility] | | | and [place] | + + + | Address | Unknown | + + + | Phone | Unavailable | + + + Support + + + + + | Name | Relationship | Address | Phone | + + + + + | Sammi Kohler | ECON | [place] [address] | | + + + + + Care Team Providers + +------+ + | Care Merchandising Assistant Name | Role | Phone | + +------+ + | Mireya Pack NP | PCP | | + +------+ + Reason for Visit + + + | Reason | Comments | + + + | Dizziness | when standing | + + + | Coughing Up Blood | one occurance | + + + Encounter Details +--------+ + + + + | Date | Type | Department | Care Team | Description | +--------+ + + + + | 03/21/ | Emergency | [facility] | Ashu Bobo | Hemoptysis, one | | 2020 | | MEDICAL CENTER | MD Gordon [address] | episode (Primary | | | | EMERGENCY CENTER | [address] [place], [place] | Dx); Uncontrolled | | | | [address] | [address] | type 2 diabetes | | | | [place], [place] | [phone] | mellitus with | | | | [address] | | hyperglycemia (HCC); | | | | [phone] | | Chronic | | | | | | anticoagulation | +--------+ + + + + Social [...] + + + | Blood Pressure | 153/74 | 03/21/2019 8:20 PM | | | | | PST | | + + + + + | Pulse | 65 | 03/21/2019 8:20 PM | | | | | PST | | + + + + + | Temperature | 36.7 C (98.1 F) | 03/21/2019 8:20 PM | | | | | PST | | + + + + + | Respiratory Rate | 20 | 03/21/2019 8:20 PM | | | | | PST | | + + + + + | Oxygen Saturation | 98% | 03/21/2019 8:20 PM | | | | | PST | | + + + + + | Inhaled Oxygen | - | - | | | Concentration | | | | + + + + + | Weight | 96.2 kg (212 lb) | 03/21/2019 5:09 PM | | | | | PST | | + + + + + | Height | - | - | | + + + + + | Body Mass Index | 29.57 | 03/12/2019 8:57 AM | | | [...] following attachments cannot be sent through Care Everywhere.Hemoptysis ([facility])Hyperglycemia (High Blood Sugar) (Korean)documented in this encounter Medications at Time of [...] | | | | use of insulin ([facility]) | | | | | | + [...] documented as of this encounter ED Notes Asuh Bobo MD - 03/21/2019 6:18 PM PST [facility] Department of Emergency Medicine No flowsheet data found. History of Present Illness Patient Identification Norah Gr is a 63 y.o. male. Patient information was obtained from patient and past medical records. History/Exam limitations: none. Patient presented to the Emergency Department by: Ambulance Chief Complaint Chief Complaint Patient presents with Dizziness when standing Coughing Up Blood one occurance The patient complains of blood in sputum when coughing today. Onset of symptoms was just PT A, with a single episode, not repeated course since that time. The symptoms are described t o be of concerning but unquantified severity. Pt states he called 911 on seeing blood in sp utum. The patient also reports nasal congestion, runny nose, chills. The patient describes the q uality and location of the symptoms as the following: "there was blood in it". Care prior to arrival consisted of nothing, with apparently spontaneous relief. Sick contacts?: Yes Patient denies: nothing. Additional relevant information: He has chronic dizziness and "spinning", this appears to b e unchanged from baseline. Prior history of similar?: Yes PCP: Mireya Pack NP Past Medical History: Diagnosis Date Acute pulmonary embolism (HCC) 10/14/2017 Anxiety ARF (acute renal failure) (HCC) 03/02/2013 Atrial fibrillation (HCC) Basal cell carcinoma 09/26/2012 arm and back COPD (chronic obstructive pulmonary disease) ([facility]) 03/02/2013 hypoxemia on 2 lts nc Depression Development delay Diabetes mellitus type II DVT (deep venous thrombosis) ([facility]) 03/29/2018 Facial droop 07/08/2013 GIB (gastrointestinal bleeding) 03/02/[address] Nur, rectal ulcers, nodule of GE junction Hypercholesterolemia 07/08/2013 Hyperlipidemia Hypertension jail (current) use of 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 Obesity, Class I, BMI 30-34.9 07/08/2013 WARD (obstructive sleep apnea) 08/11/2012 does not use CPAP because of the noise Other chronic pain Renal failure Stroke ([facility]) TIA (transient ischemic attack) Unspecified visual disturbance reading glasses Past Surgical History: Procedure Laterality Date ABDOMEN SURGERY CHOLECYSTECTOMY CHOLECYSTECTOMY, LAPAROSCOPIC 09/12/2012 Procedure: LAPAROSCOPIC - CHOLECYSTECTOMY; Surgeon: Jevon Vargas DO; Location: [facility] MAIN OR; Service: General; 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; COLONOSCOPY COLONOSCOPY 03/04/2013 Procedure: COLONOSCOPY; Surgeon: Howie Gibson MD; Location: [facility] ENDOSCOPY; Service: Gastroen terology; 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; HERNIA REPAIR 07/03/2013 Procedure: LAPAROSCOPIC - HERNIA - INCISIONAL; Surgeon: Jevon Vargas DO; Location: [facility]; Service: General; 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; KNEE SURGERY rt knee, patella LEG SURGERY LLE OTHER SURGICAL HISTORY UNLISTED PROCEDURE ARTHROSCOPY OTHER SURGICAL HISTORY Left 05/05/2014 SKIN LESION EXCISION - Procedure: EXCISION - LESION - FROZEN SECTION; Surgeon: Sy murcia MD; Location: [facility] MAIN OR; Service: Plastics; Laterality: Left; forearm SKIN BIOPSY SKIN CANCER EXCISION Left 10/10/2012 Procedure: EXCISION - SKIN CANCER; Surgeon: Sy Fierro MD; Location: [facility] MAIN OR; Service: Plastics; Laterality: Left; upper arm and upper back w/frozen section UPPER GASTROINTESTINAL ENDOSCOPY UPPER GASTROINTESTINAL ENDOSCOPY 03/03/2013 Procedure: ESOPHAGOGASTRODUODENOSCOPY; Surgeon: Howie Gibson MD; Location: [facility] ENDOSCOPY; Se rvice: Gastroenterology; 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; Prior to Admission medications Medication Sig Start Date End Date Taking? Authorizing Provider acetaminophen (TYLENOL) 325 mg tablet Take 2 tablets by mouth every 4 hours as needed for P ain (or fever >= 38.6 C (101.5 F)). Patient not taking: Reported on 03/12/2019 10/16/18 Norah Duron MD apixaban (ELIQUIS) 5 mg tablet Take 1 tablet by mouth 2 times daily. 11/07/18 Mireya artis NP ARIPiprazole (ABILIFY) 5 mg tablet Take 1 tablet by mouth Daily. 11/07/18 Mireya Pack NP atorvaSTATin (LIPITOR) 40 mg tablet Take 1 tablet by mouth nightly. 12/26/18 Mireya artis NP Blood Glucose Monitoring Suppl (BLOOD GLUCOSE MONITOR SYSTEM) w/Device KIT Dispense brand p er patient preference 11/07/18 Mireya Pakc NP budesonide-formoterol (SYMBICORT) 160-4.5 mcg/puff inhaler Inhale 2 puffs into the lungs 2 times daily. 11/01/18 11/01/19 Mireya Pack NP carvedilol (COREG) 12.5 mg tablet Take 1 tablet by mouth 2 times daily (with breakfast & di nner). 11/07/18 Mireya Pack NP finasteride (PROSCAR) 5 mg tablet Take 1 tablet by mouth Daily. 11/07/18 Mireya Pack NP Glucose Blood (BLOOD GLUCOSE TEST STRIPS) STRP For blood sugar testing 4 times daily 9 Mireya Pack NP hydrALAZINE (APRESOLINE) 25 mg tablet Take 1 tablet by mouth 2 times daily. 11/07/18 Mireya Pack NP insulin aspart (NOVOLOG FLEXPEN) 100 units/mL injection pen Inject 5 Units under the skin 3 times daily (before meals). Plus sliding scale Historical Provider, insulin detemir (LEVEMIR FLEXTOUCH) 100 units/mL injection (pen) Inject 60 Units under the skin nightly. 12/26/18 Mireya Pack NP Insulin Pen Needle (BD PEN NEEDLE KYAW U/F) 32G X 4 MM MISC For insulin administration 4 ti mes daily 11/07/18 Mireya Pack NP Lancets (ACCU-CHEK MULTICLIX) MISC 1 each by Other route 4 times daily. 11/01/18 Mireya malave NP lisinopril (PRINIVIL, ZESTRIL) 10 mg tablet Take 2 tablets by mouth Daily. 11/07/18 Mireya Pack NP metFORMIN (GLUCOPHAGE) 500 mg tablet Take 1 tablet by mouth 2 times daily (with breakfast & dinner). 11/07/18 Mireya Pack NP NIFEdipine (ADALAT CC) 60 MG 24 hr tablet Take 1 tablet by mouth Daily. Patient not taking: Reported on 03/12/2019 11/07/18 Mireya Pack NP omeprazole (PRILOSEC) 20 mg capsule Take 1 capsule by mouth every morning (before breakfast ). 12/26/18 Mireya Pack NP tamsulosin (FLOMAX) 0.4 mg CAPS Take 1 capsule by mouth 2 times daily. 11/07/18 Mireya ruvalcaba NP Allergies Allergen Reactions Nitroglycerin Swelling Tongue [...] file Gets together: Not on file Attends pentecostalism service: Not on file Active member of [...] Brother Heart Problems Review of Systems ROS positive in some fashion for literally every question asked including presence of retro -orbital dysuria. Physical Exam Temp: 36.8 C (98.2 F) Pulse: 82 Resp: 20 BP: 173/79 SpO2: 99 % Pulse Oximetry interpretation: Normal VS: Normal. Afebrile. General: Alert, in no apparent distress Eyes: Normal inspection, pupils equal and round, non-icteric ENT: Ears normal Nose congestion with clear discharge Pharynx posterior pharyngeal cobblestoning and mucous stranding present Neck: No lymphadenopathy No meningismus Cardiovascular: Normal rate, rhythm. No murmur. Respiratory: Lung sounds: No wheezing, rales, or rhonchi. Good air movement. Abdomen: Soft, non-tender, non-distended No guarding or rebound Back: Normal inspection Extremities: Normal inspection Skin: Color normal Warm and dry No rash Neuro: No motor deficit No sensory deficit Normal gait Medical Decision Making and Emergency Department Course ED Department Course Benign overall exam and VS. Pt has viral-like symptoms without evidence of respiratory dis tress or dehydration. Pt has chronic dizziness that is unchanged from any other visit so w ill focus on the new issue which is a report of blood in sputum. Will have to do more expan sive testing as pt's ROS is unfortunately positive for everything including absurd questions such as burning behind the eyes with urination. I have spent extra time with the patient a s he appears to have some sort of cognitive handicap. He is on Eliquis. TnI normal. CRP normal. CBC normal. CMP shows hyperglycemia at 370, else normal. Will g aissatou some insulin. CXR normal. BG down with insulin. Will discharge with outpt follow up with PCP as pt has been benign o n rechecks. Pt reassessed multiple times during course of ED stay and demonstrated neither decompensati on nor were new symptoms observed or reported. Records Reviewed Old medical records. Numerous prior ED visits noted. I have also noted and reviewed the p atient care plan in the EMR. Medications Administered in ED Medications insulin regular (humuLIN R, novoLIN R) injection (vial) 10 Units (has no administration in time range) Laboratory Evaluation Abnormal Labs Reviewed COMPREHENSIVE METABOLIC PANEL - Abnormal; Notable for the following components: Result Value Glucose 370 (*) ALK PHOS 144 (*) All other components within normal limits Radiology and ECG Evaluation 12-lead ECG (interpreted independently by me): Time of exam 1831. Interpreted independent ly by me. Rate: 81. Rhythm: NSR. Ectopy: PACs. [place]: nml. Intervals: nml. Infarct/Isc hemia: Global T-wave flattening. Technique: Good. Interpretation: NSR with PACs and nonspecific T-wave changes. Prior ECG for comparison: No significant change from prior study dated 10 Jan 2019. Recent Results (from the past 360 hour(s)) [...] Jackson Dwane Sign Date/Time: 03/21/2019 7:01 PM Diagnosis: 1. Hemoptysis, one episode 2. Uncontrolled type 2 diabetes mellitus with hyperglycemia (HCC) 3. Chronic anticoagulation Disposition: ED Disposition ED Disposition Condition Comment Discharge Good Follow up: Follow-up Information Schedule an appointment as soon as possible for a visit with Mireya Pack NP. Specialty: Nurse Practitioner - Primary Care Contact information: [address] [place] [id number] Discharge Medications: Ashu Bobo MD 03/21/19 193 Marques Mcdaniel RN - 03/21/2019 5:09 PM PSTBed: [id number] Expected date: Expected time: Means of arrival: Comments: 172 documented in thi s encounter Plan of Treatment +--------+---------+ + + + | Date | Type | Specialty | Care Team | Description | +--------+---------+ + + + | 09/10/ | Office | Geriatric Medicine | Mireya Pack, | | | 2019 | Visit | | [employer] [address] | | | | | | [address] [place], | | | | | | [place] [address] | | | | | | [phone] | | | | | | | | +--------+---------+ + + + | 09/29/ | Office | Urology | Mireya Pcak, | | | 2019 | Visit | | [employer] [address] | | | | | | [address] [place], | | | | | | [place] [address] | | | | | | [phone] | | | | | | | | | | | | [place], | | | | | | [address] | | | | | | [place] [address] | | | | | | [phone] | | | | | | | | +--------+---------+ + + + + +------+--------+ + + | Name | Type | Priori | Associated Diagnoses | Date/Time | | | | ty | | | + +------+--------+ + + | ED INFORMATION | COLTON | Routin | | 03/21/2019 5:09 PM | | EXCHANGE | | e | | PST | + +------+--------+ + + documented as of this encounter Procedures + +--------+ + + + | Procedure Name | Priori | Date/Time | Associated Diagnosis | Comments | | | ty | | | | + +--------+ + + + | POC GLUCOSE (NON | Routin | 03/21/2019 | | Results for this | | ORD) | e | 8:21 PM | | procedure are in the | | | | PST | | results section. | + +--------+ + + + | XR CHEST PA AND | STAT | 03/21/2019 | | Results for this | | LATERAL | | 6:57 PM | | procedure are in the | | | | PST | | results section. | + +--------+ + + + | TROPONIN I | STAT | 03/21/2019 | | Results for this | | | | 6:41 PM | | procedure are in the | | | | PST | | results section. | + +--------+ + + + | CBC NO DIFFERENTIAL | STAT | 03/21/2019 | | Results for this | | | | 6:41 PM | | procedure are in the | | | | PST | | results section. | + +--------+ + + + | C-REACTIVE PROTEIN | STAT | 03/21/2019 | | Results for this | | | | 6:41 PM | | procedure are in the | | | | PST | | results section. | + +--------+ + + + | COMPREHENSIVE | STAT | 03/21/2019 | | Results for this | | METABOLIC PANEL | | 6:41 PM | | procedure are in the | | | | PST | | results section. | + +--------+ + + + | ECG 12 LEAD | STAT | 03/21/2019 | | Results for this | | | | 6:32 PM | | procedure are in the | | | | PST | | results section. | + +--------+ + + + | ED INFORMATION | Routin | 03/21/2019 | | | | EXCHANGE | e | 5:09 PM | | | | | | PST | | | + +--------+ + + + +---+--------+ | | | | | Proced | | | ure | | | Note - | | | Richard, | | | Lab In | | | | | | Hlseve | | | n - | | | 03/21/ | | | 2020 | | | 5:10 | | | PM PST | | | | | | [...] | | | 0 | | | 17:09? | | | GR, | | | NORAH | | | | | | M?MRN: | | | | | | [id number] | | | [id number] | | | riteri | | | [...] | | | d: | | | 11/23/ | | | 19 | | | [...] | | | Total | | | 28 0 | | | Note: | | [...] | | out | | | of 28 | | | in the | | [...] | | | Blood | | | Dec | | | 27, | | | 2019 | | | [facility] | | | [facility] | | | [place] | | | [place] | | | [...] | | | se | | | Recent | | | [...] | | | [place] | | | Dependency Program Director | | | al | | | [...] | | | /notif | | | [id number] | | | [id number] | | | [id number] | | | [id number] | | | [id number] | | | [id number] | | | 99 | | | PLEASE | | | [...] documented in this encounter Results POC Glucose (03/21/2019 8:21 PM PST) + + + + + + | Component | Value | Ref Range | Performed | Pathologist | | | | | At | Signature | + + + + + + | Glucose, | 310 (H)Comment: Testing | 65 - 99 mg/dL | [facility] | | | POC | performed at [facility];[address] | | LABORATORY | | | | [address];[place] | | | | | | [address] | | | | + + + + + + + + | Specimen | + + | | + + + + + + + | Performing | Address | City/State/Zipcode | Phone Number | | Organization | | | | + + + + + | [facility] | [address] | [place] [address] | [phone] | + + + + + XR Chest PA and Lateral (03/21/2019 6:57 PM PST) + + | Specimen | + + | | + + + + + | Impressions | Performed At | + + + | Negative chest. Signed by: Irina Jackson, Addison Sign | [facility] | | Date/Time: 03/21/2019 7:01 PM | | + + + + + + | Narrative | Performed At | + + + | CHEST PA AND LATERAL CLINICAL INFORMATION: Dizziness and | [facility] | | coughing up blood. COMPARISON: XR CHEST PA AND LATERAL | | | (12/12/2018); XR CHEST PA AND LATERAL (12/01/2018); XR CHEST 1 VIEW | | | (10/16/2018); FINDINGS: Heart, lungs and vessels normal. No | | | pneumothorax, pleural effusion or adenopathy. No significant bone | | | abnormality. | | + + + + + | Procedure Note | + + | Richard, Rad Results In 03/21/2019 7:05 PM PST | | CHEST PA AND LATERAL | | | | CLINICAL INFORMATION: | | Dizziness and coughing up blood. | | | | COMPARISON: | | XR CHEST PA AND LATERAL (12/12/2018); XR CHEST PA AND LATERAL | | (12/01/2018); XR CHEST 1 VIEW (10/16/2018); | | | | FINDINGS: | | Heart, lungs and vessels normal. No pneumothorax, pleural effusion or | | adenopathy. No significant bone abnormality. | | | | IMPRESSION: | | Negative chest. | | | | | | | | Signed by: Irina Jackson, Addison | | Sign Date/Time: 03/21/2019 7:01 PM | + + + +---------+ + + | Performing | Address | City/State/Zipcode | Phone Number | | Organization | | | | + +---------+ + + | [facility] | | | | + +---------+ + + C-Reactive Protein (03/21/2019 6:41 PM PST) + + + + + + | Component | Value | Ref Range | Performed | Pathologist | | | | | At | Signature | + + + + + + | CRP | <0.4Comment: Testing | <0.5 mg/dL | [facility] | | | | performed at [facility];[address] | LABORAT[address] | | | [address];[place], [place] | | | | | | [address] | | | | + + + + + + + + | Specimen | + + | Blood | + + + + + + + | Performing | Address | City/State/Zipcode | Phone Number | | Organization | | | | + + + + + | [facility] | [address] | [place] [address] | [phone] | + + + + + Troponin I (03/21/2019 6:41 PM PST) + + + + + + | Component | Value | Ref Range | Performed | Pathologist | | | | | At | Signature | + + + + + + | Troponin I | 0.019Comment: 0.04 | 0.00 - 0.04 | [facility] | | | | ng/mL [...] at | | | | | | [facility];[address] | | | | | | [facility];[place] [address] | | | | + + + + + + + + | Specimen | + + | Blood | + + + + + + + | Performing | Address | City/State/Zipcode | Phone Number | | Organization | | | | + + + + + | [facility] | [address] | [place] [address] | [phone] | + + + + + Comprehensive Metabolic Panel (03/21/2019 6:41 PM PST) + + + + + [...] + + + + | Cl | 104 | 99 - 109 mmol/L | [facility] [...] + + + + | Glucose | 370 (H) | 65 - 99 mg/dL | [facility] | | | | | | LABORATORY | | + + + + + + | BUN | 15 | 8 - 25 mg/dL | [facility] | | | | | | LABORATORY | | + + + + + + | Creatinine | 0.97 | 0.70 - 1.30 | [facility] | [...] + + + + | Protein, | 6.3 | 6.3 - 8.2 g/dL | [facility] [...] + + + | ALK PHOS | 144 (H) | 35 - 115 U/L | [facility] | | | | | | LABORATORY | | + + + + + + | AST | 24 | 10 - 45 U/L | [facility] | | | | | | LABORATORY | | + + + + + + | ALT | 26 | 10 - 65 U/L | [facility] | | | | | | LABORATORY | | + + + + + + | Estimated | >60Comment: GFR <60: | >60 | [facility] | | | GFR | [...] | | | | | performed at [facility];[address] | | | | | | [facility];[place], [place] | | | | | | [address] | | | | + + + + + + + + | Specimen | + + | Blood | + + + + + + + | Performing | Address | City/State/Zipcode | Phone Number | | Organization | | | | + + + + + | [facility] | [address] | [place] [address] | [phone] | + + + + + CBC no Differential (03/21/2019 6:41 PM PST) + + + + + + | Component | Value | Ref Range | Performed | Pathologist | | | | | At | Signature | + + + + + + | WBC | 10.10 | 3.80 - 11.00 | [facility] | | | | | K/uL | LABORATORY | | + + + + + + | Red Blood | 5.35 | 4.20 - 5.70 | [facility] | | | Cells | | M/uL | LABORATORY | | + + + + + + | Hemoglobin | 15.2 | 13.2 - 17.0 | [facility] | | | | | g/dL | LABORATORY | | + + + + + + | Hematocrit | 43.5 | 39.0 - 50.0 % | [facility] [...] + + + + | MCHC | 34.9 | 32.0 - 35.5 | [facility] | | | | | g/dL | LABORATORY | | + + + + + + | RDW-SD | 38.4 | 37 - 53 fl | [facility] | | | | | | LABORATORY | | + + + + + + | Platelet | 253 | 150 - 400 K/uL | [facility] | | | Count | | | LABORATORY | | + + + + + + | MPV | 9.7Comment: NO NORMAL | fl | [facility] | | | | RANGE ESTABLISHEDTesting | | LABORATORY | | | | performed at [facility];[address] | | | | | | [address];[place] | | | | | | [address] | | | | + + + + + + + + | Specimen | + + | Blood | + + + + + + + | Performing | Address | City/State/Zipcode | Phone Number | | Organization | | | | + + + + + | [facility] | [address] | [place] [address] | [phone] | + + + + + ECG 12 lead (03/21/2019 6:32 PM PST) + + + + + + | Component | Value | Ref Range | Performed | Pathologist | | | | | At | Signature | + + + + + + | VENTRICULAR | 81 | BPM | [facility] | | | RATE EKG | | | | | + + + + + + | ATRIAL RATE | 81 | BPM | [facility] | | + + + + + + | P-R | 162 | ms | [facility] | | | INTERVAL | | | | | + + + + + + | QRS | 84 | ms | [facility] | | | DURATION | | | | | + + + + + + | Q-T | 402 | ms | [facility] | | | INTERVAL | | | | | + + + + + + | Q-T | 466 | ms | [facility] | | | INTERVAL | | | | | | (CORRECTED) | | | | | + + + + + + | P WAVE AXIS | 29 | degrees | [facility] | | + + + + + + | QRS AXIS | 49 | degrees | [facility] | | + + + + + + | T AXIS | -38 | degrees | [facility] | | + + + + + + | INTERPRETAT | Sinus rhythm with | | [facility] | | | ION TEXT | Premature atrial | | | | | | complexesNonspecific T | | | | | | wave abnormalityAbnormal | | | | | | ECGWhen compared with | | | | | | ECG of 10-JAN-2019 | | | | | | 06:08,Nonspecific T wave | | | | | | abnormality now evident | | | | | | in Inferior leadsT wave | | | | | | inversion now evident | | | | | | in Lateral leadsThis ECG | | | | | | [...] (500), | | | | | | video effects editor Roberto Stevens | | | | | | Gonzalo ([id number]) on 03/22/2019 | | | | | | 4:12:32 AM | | | | + + [...] + | Diagnosis | + + | Hemoptysis, one episode - Primary Hemoptysis, unspecified | + + | Uncontrolled type 2 diabetes mellitus with hyperglycemia (HCC) | + + | Chronic anticoagulation Encounter for long-term (current) use of 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 | + + documented in this encounter Administered Medications + +--------+ + +------+ + | Medication Order | MAR | Action | Dose | Rate | Site | | | Action | Date | | | | + +--------+ + +------+ + | insulin regular (humuLIN R, | Given | 03/21/19 | 10 Units | | Abdomen- | | novoLIN R) injection (vial) | | 20 7:58 | | | RUQ | | Units 10 Units, Subcutaneous, | | PM PST | | | | | ONCE, Joselyn 03/21/19 at 1935, For 1 | | | | | | | dose, Only for use with U-100 | | | | | | | insulin syringe., | | | | | | + +--------+ + +------+ + +---+---+ | | | +---+---+ documented in this encounter
--- OUTSIDE RECORDS SUMMARY | ~2019-09-09 | XMS | Encounter Summary ---
Demographics + + + | Address | [address] | | | [place] [address] | + + + | Home Phone | | + + + | Preferred Language | Unknown | + + + | Marital Status | | + + + | Protestant Affiliation | 1027 | + + + | Race | Unknown | + + + | Ethnic Group | Unknown | + + + Author + + + | Author | [facility] | | | and [place] | + + + | Organization | [facility] | | | and [place] | + + + | Address | Unknown | + + + | Phone | Unavailable | + + + Support + + + + + | Name | Relationship | Address | Phone | + + + + + | Sammi Kohler | E[place] | [place] [address] | | + + + + + Care Team Providers + +------+ + | Care Analog Ic Design Engineer Name | Role | Phone | [...] | Services | | [facility] | Mireya Calixto, PROCESSING ASSISTANT | LOBITO Worley | | | Required | | | [address] | [address] | | | | | | [address] | [address] | | | | | [address] | [place], | | | | | | [place], [place] | [place] [address] | | | | | | [address] | Phone: | | | | | | Phone: | [phone] | | | | | | [phone] | Fax: | | | | | | Fax: | [phone] | | | | | | [phone] | | +--------+ + + + + + Encounter Details +--------+ + + + + | Date | Type | Department | Care Team | Description | +--------+ + + + + | 01/11/ | Procedure | [facility] | Mireya Pack, | Bilateral hearing | | 2019 | visit | AUDIOLOGY [address] | PROCESSING ASSISTANT [address] | loss due to cerumen | | | | [address] | [address] [place], | impaction (Primary | | | | [place], [place] | [place] [address] | Dx); [facility] | | | | [address] | [phone] | | | | | [phone] | | | | | | | Joleen, Meir, AUD | | | | | | [address] | | | | | | [address] [place], [place] | | | | | | [address] | | | | | | | [...] as of this encounter Progress Meir Molina, LOBITO - 01/11/2019 9:30 AM Andreanadege Guzman was [...] rtable. The ear cleaning was stopped. Speech airline lounge receptionist thresholds were obtained at 20 dB H L in each ear. [place]-Hallpike testing was negative for BPPV bilaterally. There [...] | | 2019 | Visit | | PROCESSING ASSISTANT [address] | | | | | | [address] [place], | | | | | | [place] [address] | | | | | | [phone] | | | | | | | | +--------+---------+ + + + | 09/29/ | Office | Urology | Mireya Pack, | | | 2020 | Visit | | PROCESSING ASSISTANT [address] | | | | | | [address] [place], | | | | | | [place] [address] | | | | | | [phone] | | | | | | | | | | | | Toy Wild, DO | | | | | | [address] | | | | | | [place] [address] | | | | | | [phone] | | | | | | | [...]
--- OUTSIDE RECORDS SUMMARY | ~2019-09-09 | XMS | Encounter Summary ---
Demographics + + + | Address | [address] | | | [place] [address] | + + + | Home Phone | | + + + | Preferred Language | Unknown | + + + | Marital Status | | + + + | Taoism Affiliation | 1027 | + + + | Race | Unknown | + + + | Ethnic Group | Unknown | + + + Author + + + | Author | [facility] | | | and [place] | + + + | Organization | [facility] | | | and [place] | + + + | Address | Unknown | + + + | Phone | Unavailable | + + + Support + + + + + | Name | Relationship | Address | Phone | + + + + + | Sammi Kohler | ECON | [place] [address] | | + + + + + Care Team Providers + +------+ + | Care Blade Worker Name | Role | Phone | + +------+ + PCP | Unavailable | + +------+ + Encounter Details +--------+ + + + + | Date | Type | Department | Care Team | Description | +--------+ + + + + | 09/18/ | Emergency | [facility] | Vel Nuñez | Encounter for | | 2012 | | [facility] | MD [address] | postoperative wound | | | | [facility] | [address] | check | | | | [address] | [place] [address] | | | | | [place], [place] | [phone] | | | | | [address] | | | | | | [phone] | | | +--------+ + + + [...] documented as of this encounter ED Notes Vel Nuñez - 09/18/2012 1:25 PM PDT ED Provider Notes by Vel Nuñez MD at 09/18/12 7067 Author: Vel Nuñez MD Service: (none) Author Type: Physician Filed: 09/18/12 5176 Date of Service: 09/18/121324 Status: Signed Professor Of Marketing: Vel Nuñez MD (Physician) Additional Documentation Procedures [facility] Department of Emergency Medicine History of Present Illness Patient Identification Kevyn Guzman is a 56 y.o. male. Patient information was obtained from patient. History/Exam limitations: none. Patient presented to the Emergency Department by: Car Chief Complaint Chief Complaint Patient presents with Other drain in right groin need's removed. pt states Dr. Vargas office told him he could come to ed and get it removed The patient complains of needing drain removal. Onset of symptoms was today, with a constan t course since that time. The symptoms are described to be of mild severity. The patient al so complains of nothing. The patient describes the quality and location of the symptoms as the following: needs abd drain removed. Care prior to arrival consisted of nothing, with no relief. Past Medical History Diagnosis Date Diabetes mellitus type II Atrial fibrillation Hypertension Hyperlipidemia Anxiety Depression WARD (obstructive sleep apnea) 08/11/2012 Past Surgical History Procedure Date Unlisted procedure arthroscopy Knee surgery Leg surgery LLE Colonoscopy Cholecystectomy, laparoscopic 09/12/2012 Procedure: LAPAROSCOPIC - CHOLECYSTECTOMY; Surgeon: Jevon Vargas DO; Location: [facility]; Service: General; 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; Prior to Admission medications Medication Sig Start Date End Date Taking? Authorizing Provider ARIPiprazole (ABILIFY) 10 MG tablet Take 10 mg by mouth daily. Historical Provider aspirin 81 MG tablet Take 1 tablet by mouth daily with breakfast. 09/14/12 09/14/13 Augustine Agosto MD atenolol (TENORMIN) 100 MG tablet Take 200 [...] (two) times daily before meals. Historical Provider ipratropium-albuterol (COMBIVENT) 18-103 MCG/ACT inhaler [...] am, 1 tab in pm Historical Provider oxyCODONE-acetaminophen (ROXICET) 5-325 MG per tablet Take 1-2 tablets by mouth every 4 (fo ur) hours as needed for Pain. 09/13/12 09/23/12 Jevon Vargas, DO paroxetine (PAXIL) 40 MG tablet Take 40 [...] swollen lymph nodes, easy bruising Physical Exam BP 126/71 | Pulse 68 | Resp 18 | Ht 1.803 m (5' 11") | Wt 111.131 kg (245 lb) | BMI 34.17 k g/m2 | SpO2 96% Pulse Oximetry interpretation: Normal General: Alert, in no apparent distress Eyes: Normal inspection, pupils equal and round, non-icteric ENT: Ears normal Nose normal Pharynx normal Neck: Normal inspection Supple No lymphadenopathy No meningismus Cardiovascular: Rate and rhythm normal No murmurs Respiratory: Breath sounds normal bilaterally Abdomen: Soft, non-tender, non-distended, post op wound in right abdomen with drain in plac e, no signs of infection No guarding or rebound Genitourinary: Deferred Rectal exam: Deferred Back: Normal inspection Skin: Color normal Warm and dry No rash Neuro: No motor deficit No sensory deficit Normal gait Medical Decision Making and Emergency Department Course ED Department Course Asymptomatic. I spoke with Dr. Vargas who said to send the pt to his office for drainage removal. Records Reviewed Old medical records. Laboratory Evaluation Results None Radiology and EKG Evaluation Imaging Results None ED Diagnosis Final diagnosis Encounter for postoperative wound check Disposition: ED Disposition Discharge Condition at discharge: Stable Follow-up Information Follow up With Details Comments Contact Info Jevon Vargas, DO Go to his office now [address] [place] [address] Discharge Medications: New Prescriptions No new medications Vel Nuñez MD 09/18/12 1327 onversion Transa ction, Provider Unknown - 09/18/2012 1:21 PM PDT ED Notes by Michelle Palomares RN at 09/18/121320 Author: Michelle Palomares RN Service: (none) Author Type: Registered Nurse Filed: 09/18/121321 Date of Service: 09/18/121320 Status: Signed Professor Of Marketing: Michelle Palomares RN (Registered Nurse) Dr. Nuñez talking with Dr. Vargas re:pt Michelle Palomares RN 09/18/121321 docume nted in this encounter Plan of Treatment +--------+---------+ + + + | Date | Type | Specialty | Care Team | Description | +--------+---------+ + + + | 09/10/ | Office | Geriatric Medicine | Mireya Pack, | | 2019 | Visit | | COMMERCIAL LITIGATION ATTORNEY [address] | | | | | | [address] [place], | | | | | | [place] [address] | | | | | | [phone] | | | | | | | | +--------+---------+ + + + | 09/29/ | Office | Urology | Mireya Pack, | | | 2020 | Visit | | COMMERCIAL LITIGATION ATTORNEY [address] | | | | | | [address] [place], | | | | | | [place] [address] | | | | | | [phone] | | | | | | | | | | | | Toy Wild W, DO | | | | | | [address] | | | | | | [place] [address] | | | | | | [phone] | | | | | | | | +--------+---------+ + + + documented as of this encounter Visit Diagnoses + + | Diagnosis | + + | Encounter for postoperative wound check Other specified aftercare following surgery | + + documented in this encounter
--- OUTSIDE RECORDS SUMMARY | ~2019-09-09 | XMS | Encounter Summary ---
Demographics + + + | Address | [address] [facility] [address] [facility] | | | [place] [address] | + + + | Home Phone | | + + + | Preferred Language | Unknown | + + + | Marital Status | | + + + | Episcopalian Affiliation | 1027 | + + + | Race | Unknown | + + + | Ethnic Group | Unknown | + + + Author + + + | Author | [facility] | | | and [place] | + + + | Organization | [facility] | | | and [place] | + + + | Address | Unknown | + + + | Phone | Unavailable | + + + Support + + + + + | Name | Relationship | Address | Phone | + + + + + | Sammi Kohler | ECON | [place] [address] | | + + + + + Care Team Providers + +------+ + | Care Ethics Instructor Name | Role | Phone | + +------+ + PCP | Unavailable | + +------+ + Encounter Details +--------+ + + + + | Date | Type | Department | Care Team | Description | +--------+ + + + + | 06/16/ | Hospital | [facility] | Preet, | Elevated blood | | 2017 - | Encounter | [facility] | MD [address] | pressure; | | | | CARE FLOOR [address] | Cerebrovascular | | 06/17/ | | [address] | [place] [address] | accident (CVA), | | 2017 | | [place], [place] | [phone] | unspecified | | | | [address] | | mechanism (HCC); | | | | [phone] | | Numbness and | | | | | | tingling of right | | | | | | leg; Type 2 diabetes | | | | | | mellitus without | | | | | | complication, with | | | | | | long-term current | | | | | | use of insulin | | | | | | (HCC); 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 | | | | | | (current) use of | | | | | | 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 | +--------+ + + + + Social [...] + + + | Blood Pressure | 171/81 | 06/17/2016 7:42 AM | | | | | PDT | | + + + + + | Pulse | 63 | 06/17/2016 7:42 AM | | | | | PDT | | + + + + + | Temperature | 36.8 C (98.2 F) | 06/17/2016 7:42 AM | | | | | PDT | | + + + + + | Respiratory Rate | 20 | 06/17/2016 7:42 AM | | | | | PDT | | + + + + + | Oxygen Saturation | - | - | | + + + + + | Inhaled Oxygen | - | - | | | Concentration | | | | + + + + + | Weight | 104.2 kg (229 lb | 06/17/2016 7:42 AM | | | | 12.8 oz) | PDT | | + + + + + | Height | 180.3 cm (5' 11") | 06/17/2016 7:42 AM | | | | | PDT | | + + + + + | Body Mass Index | 32.05 | 06/17/2016 7:42 AM | | | | | PDT | | + + + + + documented in this encounter Discharge Summaries Samson Blanchard MD - 06/17/2016 11:15 AM PDT Discharge Summaries by Samson Blanchard MD at 06/17/16 111 Author: Samson Blanchard MD Service: Hospitalist Author Type: Physician Filed: 06/17/161125 Date of Service: 06/17/161114 Status: Addendum Passenger Tire Builder: Samson Blanchard MD (Physician) Related Notes: Original Note by Samson Blanchard MD (Physician) filed at 06/17/16 1125 [facility] Service: Hospitalist Discharge Summary Date of Admission: 06/16/2016 Date of Discharge: 06/17/2016 Discharge Provider: Samson Blanchard MD Treatment Team: Admitting Provider: Jorge Oviedo MD Discharge Diagnoses: Principal Problem: Numbness and tingling of right leg Active Problems: Diabetes mellitus, type 2 (HCC) HTN (hypertension) COPD (chronic obstructive pulmonary disease) (HCC) Paroxysmal atrial fibrillation (HCC) Chronic back pain Hypertension Resolved Problems: * No resolved hospital problems. * Procedures: * No surgery found * BRIEF HISTORY OF PRESENTATION: Norah Gr is a 60 y.o. male who per H&P: [facility] Service: Hospitalist Admission History & Physical Date of Admission: 06/16/2016 Requesting Physician: Dr Wagner, Emergency Department Reason for Admission: Possible CVA History Obtained From: patient CHIEF COMPLAINT: Right lower extremity numbness HISTORY OF PRESENT ILLNESS The patient is 60 y.o. 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 He woke up Around 6 PM having right lower extremity numbness and bilateral lower extremi ty weakness. Patient was not able to stand up or ambulate. He does refers a short period of numbness of his right face that resolve spontaneously. Patient denies any headache, fa cial droop, visual disturbance, double vision, worsening of his baseline dysarthria. Denie s any recent fever, chills or night sweats no history of cough, sputum production. Denies any history of dysuria or hematuria. Denies any daily aspirin intake but does refers being compliant with his Coumadin therapy. Also refers being non-compliant with his CPAP patricio e. Patient was brought to the emergency department for further assessment and treatment. In the ED the patient has remained hemodynamically stable. A CT of the head is negative for any acute intracranial abnormality. EKG shows a sinus bradycardia without any acute ST change s. Patient was deemed not a TPA candidate for being out of the therapeutic window. Patie nt will be admitted under the hospital service for further management HOSPITAL COURSE: Patient admitted for complaint of numbness and tingling of extremities. He was then put on telemetry, routine is laboratory studies were done. Patient also received MRI MRA of neck an d brain. Also MRA of her neck. States shows no evidence of acute stroke. Although this evide nce of microvascular ischemic changes. Also 20 percent stenosis of left internal carotid art wilbert. Head CT is also without any acute processes. Renal insufficiency: Stable. Most likely at baseline. Although he was normal renal function back in February. Currently GFR is in 40s. We will check BMP in 1 week. Patient received physical therapy, patient therapy, speech therapy, and they have cleared h im for discharge to home. Patient lives alone. Hypertension: Blood pressure relatively controlled but still elevated. increase his lisinop ril to 80 daily. Also echocardiogram was done. Results pending at this time. atrial fibrillation: Patient's on Coumadin; level is not therapeutic. . Check INR in 3 day s. PCP to follow with result of echocardiogram done today. Past Medical History Diagnosis Date Diabetes mellitus [...] pain Stroke (HCC) TIA (transient ischemic attack) MCC (current) use of 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 Past Surgical History Procedure Laterality Date Unlisted procedure arthroscopy Knee surgery rt knee, patella Leg surgery LLE Colonoscopy Abdominal surgery Cholecystectomy Upper gastrointestinal endoscopy Skin biopsy Skin lesion excision Left 05/05/2014 Procedure: EXCISION - LESION - FROZEN SECTION; Surgeon: Sy Fierro MD; Location: [facility]; Service: Plastics; Laterality: Left; forearm Hernia repair N/A 07/03/2013 Procedure: LAPAROSCOPIC - HERNIA - INCISIONAL; Surgeon: Jevon Vargas DO; Location: [facility]; Service: General; 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; Colonoscopy N/A 03/04/2013 Procedure: COLONOSCOPY; Surgeon: Howie Gibson MD; Location: [facility]; Service: Gastroe nterology; 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; Esophagogastroduodenoscopy N/A 03/03/2013 Procedure: ESOPHAGOGASTRODUODENOSCOPY; Surgeon: Howie Gibson MD; Location: [facility]; S ervice: Gastroenterology; 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; Skin cancer excision Left 10/10/2012 Procedure: EXCISION - SKIN CANCER; Surgeon: Sy Fierro MD; Location: [facility] ; Service: Plastics; Laterality: Left; upper arm and upper back w/frozen section Cholecystectomy, laparoscopic N/A 09/12/2012 Procedure: LAPAROSCOPIC - CHOLECYSTECTOMY; Surgeon: Jevon Vargas DO; Location: [facility]; Service: General; 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; Allergies Allergen Reactions Vitamin B12 Rash Prescriptions prior to admission Medication Sig Dispense Refill Last Dose Albuterol Sulfate (VENTOLIN HFA IN) Inhale 2 puffs into the lungs as needed. 108 mcg/ac t 02/21/2015 at Unknown time Bcmjo-C-Aogdyfvgmkrfd (BEANO) TABS Take 150 Units by mouth 3 (three) times daily as nee ded (As needed for gas). 02/07/2015 at Unknown time amLODIPine (NORVASC) 10 MG tablet Take 1 tablet by mouth daily. 30 tablet 1 02/21/2015 a t Unknown time antipyrine-benzocaine (AURALGAN) otic solution Place 4 drops into both ears daily. Un known at Unknown time ARIPiprazole (ABILIFY) 15 MG tablet Take 10 mg by mouth daily. 02/21/2015 at Unknown t silva calcium carbonate (TUMS) 500 MG chewable tablet Take 500-1,000 mg by mouth daily as nee ded. For GERD 02/21/2015 at Unknown time clonazePAM (KLONOPIN) 1 MG tablet Take 0.5 mg by mouth 2 (two) times daily as needed fo r Anxiety. 02/21/2015 at Unknown time clonidine (CATAPRES) Place 1 patch onto the skin once a week. 0.2mg/hr Indications: la st dose place 05/0202/21/2015 at Unknown time diltiazem (CARDIZEM CD) 240 MG 24 hr capsule Take 1 capsule by mouth daily. 180 mg at h s 15 capsule 0 02/21/2015 at Unknown time fenofibrate (TRIGLIDE) 160 MG tablet Take 160 mg by mouth daily. 02/21/2015 at Unknown time fluconazole (DIFLUCAN) 150 MG tablet Take 1 pill once a week for 4 weeks in a row. 4 ta blet 0 02/21/2015 at Unknown time fluticasone (FLONASE) 50 MCG/ACT nasal 1 spray by Nasal route 2 (two) times daily as ne eded for Rhinitis (for sinus pressure). 16 g 0 02/21/2015 at Unknown time furosemide (LASIX) 20 MG tablet Take 1 tablet by mouth daily. 7 tablet 0 02/21/2015 at U nknown time HYDROcodone-acetaminophen (NORCO) 5-325 MG per tablet Take 1 tablet by mouth every 6 (s ix) hours as needed for Pain. Unknown at Unknown time insulin glargine (LANTUS) 100 UNIT/ML injection Inject 82 Units into the skin nightly. (Patient taking differently: Inject 60 Units into the skin nightly.) 10 mL 12 02/21/2015 at U nknown time lamoTRIgine (LAMICTAL) 100 MG tablet Take 100 mg by mouth nightly. 02/20/2015 at Unkno wn time ourluogcx-tnzlobcu-uyehkmpce hydroxide-simethicone Take 40 mLs by mouth daily as needed . 02/20/2015 at Unknown time lisinopril (ZESTRIL) 40 MG tablet Take 1.5 tablets by mouth every evening. 45 tablet 0 Mometasone Furo-Formoterol Fum (DULERA) 100-5 MCG/ACT AERO Inhale 2 puffs into the lung s 2 (two) times daily. 02/20/2015 at Unknown time nitroGLYCERIN (NITROSTAT) 0.[address] 0.4 mg under the tongue every 5 (five) minutes as needed. 02/20/2015 at Unknown time NOVOLOG 100 UNIT/ML injection INJ 3U SUB-Q TID(AC) AND INJECT SUBCUTANEOUSLY PER SLIDIN G SCALE 1-70= 2U, 71-100=3U, 101-120= 4U, 121-150=5U, 151-180=6U, 181-210= 7U, 211- 10 mL 5 02/21/2015 at Unknown time ondansetron (ZOFRAN-ODT) 4 MG disintegrating tablet Take 4 mg by mouth every 6 (six) ho urs as needed for Nausea. Past Week at Unknown time paroxetine (PAXIL) 40 MG tablet Take 40 mg by mouth every morning. 02/07/2015 at Unknow n time polyethylene glycol (GLYCOLAX) powder DISSOLVE 17GM IN LIQUID AND DRINK BY MOUTH EVERY DAY 527 g 5 02/07/2015 at Unknown time pravastatin (PRAVACHOL) 20 MG tablet Take 80 mg by mouth nightly. 02/07/2015 at Unknown time tamsulosin (FLOMAX) 0.4 MG capsule Take 0.4 mg by mouth 2 (two) times daily. Administer 30 minutes after the same meal each day. Capsules should be swallowed whole; do not crush, chew, or open Unknown at Unknown time tiotropium (SPIRIVA) 18 MCG inhalation capsule Inhale 18 mcg into the lungs daily. at Unknown time warfarin (COUMADIN) 5 MG tablet Take 1 tablet by mouth daily. Or as directed by the [facility] 30 tablet 0 02/21/2015 at Unknown time DISCHARGE EXAM Vital Signs: BP 171/81 mmHg | Pulse 63 | Temp(Src) 98.2 F (36.8 C) (Oral) | Resp 20 | Ht 1.803 m (5' 11") | Wt 104.237 kg (229 lb 12.8 oz) | BMI 32.06 kg/m2 | SpO2 98% General Appearance: Encountered patient in room 8125 with speech therapist at bedside. Zaira ent expressed that he has to drag the right leg due to history of stroke. No apparent distre ss. Conversive and appropriate to place and person. HEENT: Normocephalic, atraumatic, pupils EOMI, PERRLA. Nose: no septal deviation or dischar ge. Ears: normal size, location, and contour. Oral: moist and appropriate dentition. NECK: is supple, full ROM, nontender. LUNGS: clear to auscultation bilaterally with no wheezing, No rales or rhonchi audible. HEART: S1S2, Regular rate and rhythm without murmurs, gallops or rubs. ABDOMEN: obese Bowel sound is normoactive, abdomen is soft, non-tender non-distended ,no ma ss palpable. EXTREMITIES: right leg more less strength than left. No lower extermity edema, No clubbing or cyanosis bilaterally NEURO: Mild slurred speech is noted. Cranial Nerves 2-12 intact, Gait normal, Muscle streng th good bilaterally, Sensation grossly intact. PSYCH: Alert, awake and Oriented x3. SKIN: No bruises, rashes, lesions, or ulcers. DATA Recent Labs Lab 06/17/16 0433 06/16/162000 WBC 8.65 10.85 RBC 4.10* 4.44 HGB 11.8* 12.7* HCT 34.6* 37.2* MCV 84.4 83.8 MCH 28.9 28.6 MCHC 34.2 34.1 RDW 43.8 45.5 PLT 239 257 MPV 8.3 7.9 NEUTOPHILPCT 52.27 58.15 MONOPCT 9.65 9.18 Recent Labs Lab 06/17/16432 NA 143 K 3.9 CL 107 CO2 27 ANIONGAP 13 GLUF 168* BUN 25 CREATININE 1.6* BCR 16 CA 9.1 ALB 3.0* GLOB 3.3 PROT 6.3 BILITOT 0.2 ALT 19 AST 17 EGFR 47* PHOS 3.4 MG 2.0 Recent Labs Lab 06/17/16432 HGBA1C 8.3* LABGLYC 192 Recent Labs Lab 06/16/162000 APTT 24 INR 1.0 No results for input(s): TSH, T3FREE, FREET4 in the last 168 hours. Recent Labs Lab 06/16/162000 CKTOTAL 160 TROPONINI <0.020 CKMBINDEX 1.6 HDL CHOL Date Value Ref Range Status 06/17/2016 21* >40 mg/dL Final CHOLESTEROL Date Value Ref Range Status 06/17/2016 114 <200 mg/dL Final Ct Head Non-con 06/16/2016 HISTORY: CVA. COMPARISON: 02/01/16 CT brain, CTA head and neck. TECHNIQUE: 5-mm axial noncontrast CT images of the brain using automated exposure control were acquired from the foramen magnum through the cranial vertex. FINDINGS: The cortical sulci, basal cisterns , ventricles all appear unremarkable. There is no intracranial hemorrhage. No mass effect. I ncompletely included paranasal sinuses and mastoid air cells are clear. Bety bullosa left middle turbinate, with minimal deviation of the nasal septum towards the right. 06/16/2016 1. No acute intracranial abnormalities. Mra Neck With And Without Contrast 06/16/2016 HISTORY: Elevated blood pressure. CVA. TECHNIQUE: MRA imaging of the neck was pe rformed on a 1.5 [employer] MRI system. Multiplanar MRA sequences according to a standard [facility] protocol were acquired with contrast. Contrast: MultiHance. Dose: 10 mL. COMPARISON: MRA neck 12/05/14. CTA neck 02/01/16. FINDINGS: There appears to be significant stenosis at the origin of the right external carotid artery, but on CTA images, this appears to be due to kinking rather than a significant stenosis. Widely patent right ICA, without stenosis. Th e left ICA shows minimal stenosis at the origin, 20% NASCET stenosis. This is unchanged comp ared with CTA. The atherosclerotic changes noted on CT are not well-defined on MRI in both c arotid bulbs and origins of the internal carotid arteries. The vertebral arteries are widely patent throughout the neck. Tortuosity of the origins of both vertebral arteries. No stenos is. 06/16/2016 1. 20% NASCET stenosis at the origin of the left internal carotid artery, simil ar to that found on CTA neck 02/01/16. 2. Widely patent right ICA, with 0% NASCET stenosis. 3. Widely patent vertebral arteries. 17 11:30 PM Mri Brain Without Contrast And Mra Head 06/16/2016 HISTORY: Right-sided numbness. CVA. TECHNIQUE: MRI imaging of the brain was perf ormed on a 1.5 [employer] MRI system. Multiplanar MRI sequences according to a standard departid nt protocol were acquired without contrast. 3-D aguk-rx-avrfqs MRA images. MIP reformations of the anterior and posterior circulation. COMPARISON: MRA neck same day. MRI brain 05/12/14 , 12/05/14. CT brain 06/16/16-07/14/14. FINDINGS: Diffusion images show no evidence of acute infarct. GRE images show no evidence of fair 10 deposition. T2 FLAIR and T2-weighted images show subtle increased signal lining the lateral ventricles and in the frontal deep white ma tter, unchanged. This is likely due to mild microvascular ischemic change/gliosis. The corti amadou sulci, basal cisterns, ventricles otherwise appear unremarkable. There is no evidence of intracranial hemorrhage or mass effect. MRA images show a triplicated anterior cerebral art wilbert. Anterior, middle, and posterior cerebral arteries show no evidence of significant ather osclerotic change. Posterior circulation shows symmetric vertebral arteries. The PICAs are p atent. Basilar unremarkable. 06/16/2016 1. I see no evidence of acute infarct. 2. Scattered periventricular and deep w simon matter areas of increased signal, unchanged, consistent with mild microvascular ischemi c change/gliosis. 3. No MRA significant abnormalities are identified, stable. Electronicall y signed by Bhavin Gr MD on 06/16/2016 11:21 PM PLAN Discharge to home in stable condition. Code Status: Full Code No discharge procedures on file. Follow up: Jerrell Gutiérrez, DO [address] [facility] [address] In 1 week Medication List CHANGE how you take these [...] mometasone-formoterol fenofibrate 160 MG tablet Refills: 0 fluconazole 150 MG tablet QTY: 4 tablet Refills: 0 Commonly known as: DIFLUCAN Take 1 pill once a week for 4 weeks in a row. fluticasone 50 MCG/ACT nasal QTY: 16 g Refills: 0 Commonly known as: FLONASE 1 spray by Nasal route 2 (two) times daily as needed for Rhinitis (for sinus pressure). furosemide 20 MG tablet QTY: 7 tablet Refills: 0 Commonly known as: LASIX Take 1 tablet by mouth daily. HYDROcodone-acetaminophen 5-325 MG per tablet Refills: 0 Commonly known as: NORCO lamoTRIgine 100 MG tablet Refills: 0 Commonly known as: LaMICtal acifvefpb-kaveyuzv-eykrnjefu hydroxide-simethicone Refills: 0 lisinopril 40 MG tablet QTY: 45 tablet Refills: 0 Commonly known as: ZESTRIL Take 1.5 tablets by mouth every evening. nitroGLYCERIN 0.4 MG SL tablet Refills: 0 [...] Refills: 0 warfarin 5 MG tablet QTY: 30 tablet Refills: 0 Commonly known as: COUMADIN Take 1 tablet by mouth daily. Or as directed by the [facility] Discharge took 47 minutes, to include final examination, discussion of admission, and prepa ration of prescriptions, instructions for on-going care, follow-up and documentation of disc harge summary. Samson Blanchard MD 06/17/2016 ONDAdohilda light in this encounter Medications at Time of [...] Progress Notes Conversion Transaction, Provider Unknown - 06/17/2016 12:18 PM PDTFormatting of this note m ight be different from the original. Nurse Progress Note by Igor Birch RN at 06/17/161217 Author: Igor Birch RN Service: (none) Author Type: Registered Nurse Filed: 06/17/16 1221 Date of Service: 06/17/161217 Status: Signed Passenger Tire Builder: Igor Birch RN (Registered Nurse) Coumadin given this shift, patient educated on continued use of coumadin and INR- coumadin book given to patient and reviewed. All discharge paperwork completed, all questions answere dSalty DAILEY dc'd. Patient transferred via wheelchair by staff. IGOR BIRCH RN onver ivana Transaction, Provider Unknown - 06/17/2016 11:34 AM PDT Case Management by Isidor Tejeda RN at 06/17/16 6943 Author: Isidro Tejeda RN Service: (none) Author Type: Registered Nurse Filed: 06/17/161213 Date of Service: 06/17/161133 Status: Addendum Passenger Tire Builder: Isidro Tejeda RN (Registered Nurse) Related Notes: Original Note by Isidro Tejeda RN (Registered Nurse) filed at 06/17/16 12 14 Patient does not have anybody to give him a ride home and he doesn't have any money to pay for a ride. I set up transport with [employer] for picker box operator at 1230. Patient has no preferance for , referral and face to face given to [facility] for RN to help wi th medication management. onver ivana Transaction, Provider Unknown - 06/17/2016 11:04 AM PDT Therapy Progress Note by Yojana Salvador MA CCC-WORLD TRAVEL COUNSELOR at 06/17/16 1104 Author: Yojana Salvador MA CCC-WORLD TRAVEL COUNSELOR Service: (none) Author Type: Speech and Technology Specialist ologist Filed: 10/17/16 0852 Date of Service: 06/17/16 1104 Status: Addendum Passenger Tire Builder: Yojana Salvador MA CCC-WORLD TRAVEL COUNSELOR (Speech and Language Pathologist) Related Notes: Original Note by Yojana Salvador MA CCC-WORLD TRAVEL COUNSELOR (Speech and Language Pathologis t) filed at 06/17/16 1104 06/17/16 1045 WORLD TRAVEL COUNSELOR Last Visit WORLD TRAVEL COUNSELOR Received On 06/17/16 Requires WORLD TRAVEL COUNSELOR Follow Up No Swallowing Assessment Eval Swallowing Evaluation Yes Initial Swallow Assessment Respiratory Status Room air History of Intubation No Behavior/Cognition Cooperative;Alert Dentition Adequate Vision Functional for self-feeding;Wears glasses Patient Positioning Upright in bed Baseline Vocal Quality Normal Volitional Cough Strong Volitional Swallow WFL Oral Motor Exam Labial ROM WFL Labial Symmetry WFL Labial Strength WFL Lingual ROM WFL Lingual Symmetry WFL Lingual Strength WFL Facial Symmetry WFL Consistencies Consistencies Assessed Yes Thin Presentation Straw;Self Fed Oral Phase Thin WFL Pharyngeal Phase No overt signs or symptoms of aspiration Regular Presentation Self Fed Oral Phase WFL Pharyngeal Phase No overt signs or symptoms of aspiration Recommendations Liquids Consistency Recommendations Thin Diet Consistency Recommendation Regular Risk for Aspiration None Compensatory Swallowing Strategies Remain upright for 30 minutes after meals;Upright as pos sible for all oral intake;Eat/feed slowly Recommended Form of Meds Meds with recommended liquid Summary Pt seen for initial ST evalulation. Pt reports he has baseline speech difficulty wi th fast speaking. He is ablt to slow down with cues. Pt denies anychanges in speech, languag e, cognition, or swallowing with this hospitalization. Pt [facility]. Pt tolerated regular and thins with no overt s/sx of aspiration. Provided p t with several strategies for speech intelligibility including slowing down when speaking an d checking in with the listener to make sure thery understand him. Pt verbalized understandi gn and was able to practice these with speech therapist today. Staff Notified RN Plan of Care Treatment Plan No futher therapy recommended Treatment Frequency Eval/consult only Care Duration (Days) 1 Days AVS Documentation Yes Diet Regular: no restrictions Liquids Thin liquids: regular consistency WORLD TRAVEL COUNSELOR Ready for Discharge Yes Dysphagia Goals Instrument Tester Goals Safe/efficient oral intake Pt will have safe/efficient oral intake Thin liquids;Regular diet;Goal met Short Term Goals Tolerate diet Pt will tolerate diet Regular Yojana Salvador MA CCC-WORLD TRAVEL COUNSELOR 06/17/2016 Functional Limitation - G Codes Swallowing: $[id number] Current Status : CH - 0 percent impaired, limited or restricted $[id number] D/C Status : CH - 0 percent impaired, limited or restricted Rationale: No difficulty with swallowing at this time. onver ivana [place] Provider Unknown - 06/17/2016 8:30 AM PDT Therapy Progress Note by Hakeem Wheeler PT at 06/17/16 08 Author: Hakeem Wheeler PT Service: (none) Author Type: Physical Therapist Filed: 06/17/16916 Date of Service: 06/17/16829 Status: Signed Passenger Tire Builder: Hakeem Wheeler PT (Physical Therapist) 06/17/16829 PT Last Visit PT Received On 06/17/16 Reason for Treatment Stroke (possible CVA) Requires PT Follow Up Awaiting tx order Follow up PT Only? No PT Eval/Reassessment Date 06/17/16 Assistance Required 1 person Home Environment Type of Home Apartment upper level Home Exterior Layout Flight one;Rail bilateral Home Interior Layout Lives on main level with bedroom/bathroom Bathroom Shower/Tub Tub/shower unit Bathroom Toilet Standard Bathroom Equipment Grab bars in shower/bath Bathroom Accessibility Accessible via walker Home Equipment Cane quad Prior Function Level of [place] Independent with ADLs;Independent with IADLs;Modified independent wi th functional mobility Falls in Past Year Yes Lives With Alone Receives Help From Other (Comment);Flight Operations Inspector (nursing services come out once a week) ADL Assistance Independent Home ADL's Independent Employment Retired for disability RUE Assessment RUE Assessment WFL LUE Assessment LUE Assessment WFL RLE Assessment RLE Assessment WFL (gross weakness but functional) LLE Assessment LLE Assessment WFL Cognition Overall Cognitive Status WFL Orientation Level Oriented Sensation Light Touch No apparent deficits Assessment of Patient Status Assessment of Patient Status Decreased functional mobility;Decreased ADL status Prognosis Should progress with skilled therapy intervention Safety Devices Safety Devices in Place (call light in reach) Restraints Initially in Place No Precautions Other Precautions hx. of stroke (RLE weakness) Activity Tolerance Endurance Good Sitting Balance Sits without support for > 30 sec Plan Treatment/Interventions Gait training;Stair training;Therapeutic exercise;Transfer training ;Balance training;Bed mobility training PT Frequency 3-5x/wk;Once per day Care Duration (# of days) 7 # of days Recommendation Recommendations Home Assist Equipment Recommended None (pt. has quad cane) PT Ready for Discharge Yes Recommendation Comments pt. has nursing and housekeeping come in once a week and pt. should do well at home with these services 06/17/16 0830 PT Last Visit PT Received On 06/17/16 Reason for Treatment Stroke (possible CVA) Requires PT Follow Up Awaiting tx order Follow up PT Only? No PT Eval/Reassessment Date 06/17/16 Assistance Required 1 person Precautions Other Precautions hx. of stroke (RLE weakness) Other Comments Comments Chart reviewed pt, pt is a 60 year old male that presented to the hospital for a p ossible CVA. Completed home assessment and PLOF. Vitals are BP 171/81, HR 63 BPM and O2 9 5% on RA. supine to sit SBA, pt. sat EOB with no signs of dizziness or being lightheaded. sit to stand SBA (took 2 attempts), pt. ambulated 250' with quad cane and SBA. pt. reports he has been using quad cane on and off for over 5 years now. Got step and practiced going u p stairs x 3 with CGA. sit to supine SBA. pt. supine in bed with call light in reach. Cognition Overall Cognitive Status WFL Orientation Level Oriented Bed Mobility Supine to Sit Standby assist Sit to Supine Standby assist Transfers Sit to/from Stand Standby assist Mobility Ambulation Assistance Standby assist Maximal Ambulation Distance (feet) 250 Total Ambulation Distance (feet) 250 Distance limited by? Patient's ability Pattern Decreased aaron;Right dec toe clearance;Left swing foot passes stance foot Assistive Device Cane quad Stairs Assistance Minimal assist (CGA) Number of Stairs 3 Number of stairs limited by? Therapist/staff discretion Stair Management Technique Step-to Modalities Modalities Other therapy Other Therapy ed. on safe mobility, goals and POC Activity Tolerance Activity Tolerance Patient limited by fatigue Nurse Made Aware yes Safety Devices Safety Devices in Place (call light in reach) Restraints Initially in Place No Plan Treatment/Interventions Gait training;Stair training;Therapeutic exercise;Transfer training ;Balance training;Bed mobility training PT Frequency 3-5x/wk;Once per day Care Duration (# of days) 7 # of days Recommendation Recommendations Home Assist Equipment Recommended None (pt. has quad cane) PT Ready for Discharge Yes Recommendation Comments pt. has nursing and housekeeping come in once a week and pt. should do well at home with these services Low - 06448 Moderate - 85154 High - 74704 History no personal factors &/or comorbidities 1-2 personal factors &/or comorbidities 3 o r more personal factors &/or comorbidities Examination 1-2 elements 3 elements 4 or more elements Clinical Presentation stable evolving unstable Clinical Decision Making Complexity: Low 97181 Moderate 42298 High 06725 onver ivana Transaction, Provider Unknown - 06/17/2016 6:12 AM PDT Progress Notes by Di Gregory RN at 06/17/16611 Author: Di Gregory RN Service: (none) Author Type: Registered Nurse Filed: 06/17/16616 Date of Service: 06/17/16611 Status: Signed Passenger Tire Builder: Di Gregory RN (Registered Nurse) Pt alert and oriented x4 upon arrival to floor. Neurochecks consistent with initial assessm ent. Pt c/o numbness to right lower extremity and weakness to bilateral lower extremity. Pas sed bedside swallow evaluation. Upon admission patient noted to be bradycardic. Pt assessed and was asymptomatic. Resting comfortably in bed. Pt unable to give information regarding me dication taken at home. No other acute changes from initial assessment. onver ivana Transaction, Provider Unknown - 06/16/2016 10:09 PM PDT Progress Notes by Elias Farley RPH at 06/16/162208 Author: Elias Farley RPH Service: Pharmacy Author Type: Pharmacist Filed: 06/16/162208 Date of Service: 06/16/162208 Status: Signed Passenger [employer] Builder: Elias Farley RPH (Pharmacist) Clinical Pharmacy Note: Renal Monitoring Norah Gr 60 y.o. male Ht Readings from Last 1 Encounters: 02/25/16 1.803 m (5' 11") Wt Readings from Last 1 Encounters: 06/16/16 105.1 kg (231 lb 11.3 oz) CREATININE: 1.8 mg/dL ABNORMAL (06/16/162000) Estimated creatinine clearance - 53.2 mL/min Pharmacy dosing for renal function per Dr. Oviedo. Currently, there are no medications needing to be adjusted. Pharmacy will continue to monit or for changes in medication orders and in renal function and adjust accordingly. Hero Farley RPh 06/16/2016 10:08 PM docume nted in this encounter H&P Notes Jorge Oviedo MD - 06/16/2016 8:41 PM PDTFormatting of this note might be diffe rent from the original. H&P by Jorge Oviedo MD at 06/16/162040 Author: Jorge Oviedo MD Service: Hospitalist Author Type: Physician Filed: 06/16/162133 Date of Service: 06/16/162040 Status: Signed Passenger Tire Builder: Jorge Oviedo MD (Physician) [facility] Service: Hospitalist Admission History & Physical Date of Admission: 06/16/2016 Requesting Physician: Dr Wagner, Emergency Department Reason for Admission: Possible CVA History Obtained From: patient CHIEF COMPLAINT: Right lower extremity numbness HISTORY OF PRESENT ILLNESS The patient is 60 y.o. 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 He woke up Around 6 PM having right lower extremity numbness and bilateral lower extremit y weakness. Patient was not able to stand up or ambulate. He does refers a short period of numbness of his right face that resolve spontaneously. Patient denies any headache, facial droop, visual disturbance, double vision, worsening of his baseline dysarthria. Denies any recent fever, chills or night sweats no history of cough, sputum production. Denies any hi story of dysuria or hematuria. Denies any daily aspirin intake but does refers being compli ant with his Coumadin therapy. Also refers being non-compliant with his CPAP machine. Patient was brought to the emergency department for further assessment and treatment. In [facility] ED the patient has remained hemodynamically stable. A CT of the head is negative for any acute intracranial abnormality. EKG shows a sinus bradycardia without any acute ST changes. Patient was deemed not a TPA candidate for being out of the therapeutic window. Patient w ill be admitted under the hospital service for further management REVIEW OF SYSTEMS Review of Systems Constitutional: Positive for fatigue. Negative for fever and chills. HENT: Negative for postnasal drip and rhinorrhea. Respiratory: Negative for apnea, cough, choking, shortness of breath and wheezing. Cardiovascular: Negative for chest pain, palpitations and leg swelling. Gastrointestinal: Negative for nausea, vomiting, abdominal pain, diarrhea and abdominal dis tention. Genitourinary: Negative for dysuria and difficulty urinating. Musculoskeletal: Positive for back pain. Negative for arthralgias. Skin: Negative for color change. Neurological: Positive for speech difficulty (at baseline), weakness, light-headedness and numbness. Negative for dizziness, syncope and headaches. Psychiatric/Behavioral: Negative for confusion and agitation. Past [...] pain Stroke (HCC) TIA (transient ischemic attack) MCC (current) use of 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 Past Surgical History Procedure Laterality Date Unlisted procedure arthroscopy Knee surgery rt knee, patella Leg surgery LLE Colonoscopy Abdominal surgery Cholecystectomy Upper gastrointestinal endoscopy Skin biopsy Skin lesion excision Left 05/05/2014 Procedure: EXCISION - LESION - FROZEN SECTION; Surgeon: Sy Fierro MD; Location: [facility]; Service: Plastics; Laterality: Left; forearm Hernia repair N/A 07/03/2013 Procedure: LAPAROSCOPIC - HERNIA - INCISIONAL; Surgeon: Jevon Vargas DO; Location: [facility]; Service: General; 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; Colonoscopy N/A 03/04/2013 Procedure: COLONOSCOPY; Surgeon: Howie Gibson MD; Location: [facility]; Service: Gastroe nterology; 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; Esophagogastroduodenoscopy N/A 03/03/2013 Procedure: ESOPHAGOGASTRODUODENOSCOPY; Surgeon: Howie Gibson MD; Location: [facility]; S ervice: Gastroenterology; 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; Skin cancer excision Left 10/10/2012 Procedure: EXCISION - SKIN CANCER; Surgeon: Sy Fierro MD; Location: [facility] ; Service: Plastics; Laterality: Left; upper arm and upper back w/frozen section Cholecystectomy, laparoscopic N/A 09/12/2012 Procedure: LAPAROSCOPIC - CHOLECYSTECTOMY; Surgeon: Jevon Vargas DO; Location: [facility]; Service: General; 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; No current facility-administered medications on file prior to encounter. Current Outpatient Prescriptions on File Prior to Encounter Medication Sig Dispense Refill Albuterol Sulfate (VENTOLIN HFA IN) Inhale 2 puffs into the lungs as needed. 108 mcg/ac t Dcrkj-B-Jgabluxzholcn (BEANO) TABS Take 150 Units by mouth 3 (three) times daily as nee ded (As needed for gas). amLODIPine (NORVASC) 10 MG tablet Take 1 tablet by mouth daily. 30 tablet 1 antipyrine-benzocaine (AURALGAN) otic solution Place 4 drops into both ears daily. ARIPiprazole (ABILIFY) 15 MG tablet Take 10 mg by mouth daily. calcium carbonate (TUMS) 500 MG chewable tablet [...] tablet Take 160 mg by mouth daily. fluconazole (DIFLUCAN) 150 MG tablet Take 1 pill once a week for 4 weeks in a row. 4 ta blet 0 fluticasone (FLONASE) 50 MCG/ACT nasal 1 spray by Nasal route 2 (two) times daily as ne eded for Rhinitis (for sinus pressure). 16 g 0 furosemide (LASIX) 20 MG tablet Take 1 tablet by mouth daily. 7 tablet 0 HYDROcodone-acetaminophen (NORCO) 5-325 MG per tablet Take 1 tablet by mouth every 6 (s ix) hours as needed for Pain. insulin glargine (LANTUS) 100 UNIT/ML injection Inject 82 Units into the skin nightly. (Patient taking differently: Inject 60 Units into the skin nightly.) 10 mL 12 lamoTRIgine (LAMICTAL) 100 MG tablet Take 100 mg by mouth nightly. zfjkqaepq-yiwfoxyf-gvirxwzjg hydroxide-simethicone Take 40 mLs by mouth daily as needed . lisinopril (ZESTRIL) 40 MG tablet Take 1.5 tablets by mouth every evening. 45 tablet 0 Mometasone Furo-Formoterol Fum (DULERA) 100-5 MCG/ACT AERO [...] 151-180=6U, 181-210= 7U, 211- 10 mL 5 ondansetron (ZOFRAN-ODT) 4 MG disintegrating tablet Take 4 mg by mouth every 6 (six) ho urs as needed for Nausea. paroxetine (PAXIL) 40 MG tablet Take 40 mg by mouth every morning. polyethylene glycol (GLYCOLAX) powder DISSOLVE 17GM IN LIQUID AND DRINK BY MOUTH EVERY DAY 527 g 5 pravastatin (PRAVACHOL) 20 MG tablet Take 80 mg by mouth nightly. tamsulosin (FLOMAX) 0.4 MG capsule Take 0.4 mg by mouth 2 (two) times daily. Administer 30 minutes after the same meal each day. Capsules should be swallowed whole; do not crush, chew, or open tiotropium (SPIRIVA) 18 MCG inhalation capsule Inhale 18 mcg into the lungs daily. warfarin (COUMADIN) 5 MG tablet Take 1 tablet by mouth daily. Or as directed by the [facility] 30 tablet 0 Immunizations: Influenza: Pneumoccocal: Allergies Allergen Reactions Vitamin B12 Rash (Not in a hospital admission) Family History Problem Relation Age of Onset Heart disease Father Heart disease Sister Diabetes type II Sister Heart Problems Brother Social History Social History Marital Status: Spouse Name: N/A Number of Children: 1 Years of Education: s. college Occupational History disabled Social History Main Topics Smoking status: Never Smoker Smokeless tobacco: Never Used Alcohol Use: 0.0 oz/week 1-2 Cans of beer per week Comment: occassional Drug Use: No Sexual Activity: Not Currently Other Topics Concern Not on file Social History Narrative Lives alone x 1 wk, moved from [facility], , 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 2 falls in the last 6 months. PHYSICAL EXAM Vital Signs: BP 124/65 mmHg | Pulse 54 | Temp(Src) 99 F (37.2 C) (Oral) | Resp 16 | Wt 105.1 kg (231 lb 11.3 oz) | SpO2 96% Physical Exam Constitutional: He is oriented to person, place, and time. He appears well-developed. HENT: Head: Normocephalic and atraumatic. Eyes: EOM are normal. Pupils are equal, round, and reactive to light. Neck: Neck supple. No JVD present. Cardiovascular: Normal rate, regular rhythm and normal heart sounds. Exam reveals no pina p and no friction rub. No murmur heard. Pulmonary/Chest: Effort normal. No respiratory distress. He has no wheezes. He has no rales . He exhibits no tenderness. Abdomina/Gl: Soft. He exhibits no distension and no mass. There is no tenderness. There is no rebound and no guarding. No hernia. Musculoskeletal: He exhibits no edema. Neurological: He is alert and oriented to person, place, and time. He has normal reflexes. He displays normal reflexes. Coordination normal. Patient with prior history of CVA with residual dysarthria (at baseline) and right sided we akness. Today, the physical exam consistent with right sided weakness and decided she. Patient ref ers that the weakness on his right leg is worse than usual DATA Results Procedure Component Value Units Date/Time ED Stroke Panel [[id number]] (Abnormal) Collected: 06/16/162000 WBC 10.85 K/uL Updated: 06/16/162034 RBC 4.44 M/uL HGB 12.7 (L) g/dL HCT 37.2 (L) % MCV 83.8 fl MCH 28.6 pg MCHC 34.1 g/dL RDW SD 45.5 fl PLT 257 K/uL MPV 7.9 fl DIFF TYPE AUTOMATED NEUTROPHILS 58.15 % LYMPHOCYTES 28.45 % MONOCYTES 9.18 % EOSINOPHILS 3.40 % BASOPHILS 0.82 % NEUTROPHILS ABS 6.31 K/uL LYMPHOCYTES ABS 3.09 K/uL MONOCYTES ABS 1.00 (H) K/uL EOSINOPHILS ABS 0.37 K/uL BASOPHILS ABS 0.09 K/uL SODIUM 140 mmol/L POTASSIUM 4.0 mmol/L CHLORIDE 106 mmol/L CO2 29 mmol/L ANION GAP AGAP 10 mmol/L GLUCOSE 188 (H) mg/dL BUN 27 (H) mg/dL CREATININE 1.8 (H) mg/dL BUN/CREAT 15 CALCIUM 9.1 mg/dL TOTAL PROTEIN 7.0 g/dL Albumin 3.3 g/dL GLOBULIN 3.8 g/dL A/G 0.9 (L) TBIL 0.3 mg/dL ALK PHOS 53 U/L AST 18 U/L ALT 18 U/L EGFR 41 (L) mL/min/1.73m2 INR 1.0 APTT 24 seconds CPK 160 U/L MMB 2.5 ng/mL CK-MB Index 1.6 TROPONIN I <0.020 ng/mL PROBLEM LIST Principal Problem: Numbness and tingling of right leg Active Problems: Diabetes mellitus, type 2 (HCC) HTN (hypertension) COPD (chronic obstructive pulmonary disease) (HCC) Paroxysmal atrial fibrillation (HCC) Chronic back pain Hypertension ASSESSMENT & PLAN Impression patient is 60 y.o. 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 Last time seen at baseline was around 1 PM. Patient was deemed not a TPA candidate due to be out of therapeut ic window Aspirin use-negative EKG-Sinus bradycardia. No acute ST changes CT head-no acute intracranial abnormalities INR-1.0 Assessment -Right lower extremity numbness and worsening bilateral lower extremity weakness. History and physical is consistent with CVA. Will rule out other neurological disorders -CVA. Most likely ischemic due to his multiple risk factors -Atrial Fibrillation hx. On chronic Coumadin therapy; INR is currently subtherapeutic -Diabetes -Hypertension -Hyperlipidemia -Obesity. BMI of 32 -Sleep apnea. Noncompliant with CPAP therapy -COPD. With no current signs of exacerbation Plan Admit to inpatient Neurocheck q4h Telemetry EKG, A1C and lipid panel in the morning IVF with NS at 75 ml/h Goal MAP > 90. Will do not treat hypertension unless BP > 220/120. If that is the case, tito l use labetalol PRN NPO Swallow eval PT eval ASA therapy High dose statin therapy Echocardiogram with bubble study MRI MRA of head and neck Continue coumadin therapy with goal INR 2-3 Novolog sliding scale DVT GI prophylaxis CODE STATUS- Full code Disposition: Inpatient Code Status: Prior Primary Care Physician: JERRELL Oviedo MD 06/16/2016 documented i n this encounter ED Notes Jose Wagner DO - 06/16/2016 7:48 PM PDTFormatting of this note might be differen t from the original. ED Provider Notes by Jose Wagner DO at 06/16/161947 Author: Jose Wagner DO Service: Emergency Department Author Type: Physician Filed: 06/16/16 5780 Date of Service: 06/16/161947 Status: Signed Passenger Tire Builder: Jose Wagner DO (Physician) [facility] Department of Emergency Medicine 7:49 PM History of Present Illness Patient Identification Norah Gr is a 60 y.o. male. Patient information was obtained from patient. History/Exam limitations: none. Patient presented to the Emergency Department by: Car History of Presenting Illness The patient is a 60 y.o. male presenting with Chief Complaint Patient presents with Numbness RLE; beginning today after waking up from nap Location- Neuro Onset- 6 pm (approximately 2 hours ago) Duration- worsening Severity/Character- moderate, numbness Worse with- nothing Better with- nothing Radiation- to bilateral legs Denies- emesis, nausea, diarrhea, constipation, chest pain, SOB Admits- numbness to face and right lower extremity, tremors, generalized weakness, abdomina l pain Context- Patient reports he woke from a nap at 6 pm with facial numbness, that radiated to his right lower extremity. He states when he first woke he had difficulty getting out of bed due to onset of generalized weakness, but noticed the numbness in his left leg while walkin g to get his cane. Patient has hx of stroke, last 4 months ago, and reports his right lower extremity is new. Patient states he was last normal at 1 pm. PCP: JERRELL GUTIÉRREZ Past Medical History Diagnosis Date Diabetes mellitus type II Atrial fibrillation (HCC) Hypertension Hyperlipidemia Anxiety Depression Renal failure ARF (acute renal failure) ([facility]) 03/02/2013 COPD (chronic obstructive pulmonary disease) ([facility]) 03/02/2013 hypoxemia on 2 lts [...] pain Stroke (HCC) TIA (transient ischemic attack) MCC (current) use of 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 Past Surgical History Procedure Laterality Date Unlisted procedure arthroscopy Knee surgery rt knee, patella Leg surgery LLE Colonoscopy Abdominal surgery Cholecystectomy Upper gastrointestinal endoscopy Skin biopsy Skin lesion excision Left 05/05/2014 Procedure: EXCISION - LESION - FROZEN SECTION; Surgeon: Sy Fierro MD; Location: [facility]; Service: Plastics; Laterality: Left; forearm Hernia repair N/A 07/03/2013 Procedure: LAPAROSCOPIC - HERNIA - INCISIONAL; Surgeon: Jevon Vargas DO; Location: [facility]; Service: General; 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; Colonoscopy N/A 03/04/2013 Procedure: COLONOSCOPY; Surgeon: Howie Gibson MD; Location: [facility]; Service: Gastroe nterology; 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; Esophagogastroduodenoscopy N/A 03/03/2013 Procedure: ESOPHAGOGASTRODUODENOSCOPY; Surgeon: Howie Gibson MD; Location: [facility]; S ervice: Gastroenterology; 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; Skin cancer excision Left 10/10/2012 Procedure: EXCISION - SKIN CANCER; Surgeon: Sy Fierro MD; Location: [facility] ; Service: Plastics; Laterality: Left; upper arm and upper back w/frozen section Cholecystectomy, laparoscopic N/A 09/12/2012 Procedure: LAPAROSCOPIC - CHOLECYSTECTOMY; Surgeon: Jevon Vargas DO; Location: [facility]; Service: General; 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; Prior to Admission medications Medication Sig Start Date End Date Taking? Authorizing Provider Albuterol Sulfate (VENTOLIN HFA IN) Inhale 2 puffs into the lungs as needed. 108 mcg/act Historical Provider Aqoof-K-Nblvlmivrrlyc (BEANO) TABS Take 150 Units by mouth 3 (three) times daily as needed (As needed for gas). Historical Provider amLODIPine (NORVASC) 10 MG tablet Take 1 tablet by mouth daily. 12/03/13 Augustine ramírez MD antipyrine-benzocaine (AURALGAN) otic solution Place 4 drops into both ears daily. Histo rical Provider ARIPiprazole (ABILIFY) 15 MG tablet Take 10 mg by mouth daily. Historical Provider calcium [...] daily. 180 mg at hs 05/07/14 Lorna Looeny MD fenofibrate (TRIGLIDE) 160 MG tablet Take [...] mouth daily. 04/09/14 04/09/15 Marcos eastman MD HYDROcodone-acetaminophen (NORCO) 5-325 MG per tablet Take 1 tablet by mouth every 6 (six) hours as needed for Pain. Historical Provider insulin glargine (LANTUS) 100 UNIT/ML injection Inject 82 Units into the skin nightly. Patient taking differently: Inject 60 Units into the skin nightly. 12/03/13 Augustine Agosto MD lamoTRIgine (LAMICTAL) 100 MG tablet Take 100 mg by mouth nightly. Historical Provider eqooceenu-ndywuvrm-mdisdyxtt hydroxide-simethicone Take 40 mLs by mouth daily as needed. Historical Provider lisinopril (ZESTRIL) 40 MG tablet Take 1.5 tablets by mouth every evening. 02/25/15 03/27/15 Samson Blanchard MD Mometasone Furo-Formoterol Fum (DULERA) 100-5 MCG/ACT [...] Leonard Allergies Allergen Reactions Vitamin B12 Rash Social History Social History Marital Status: Spouse Name: N/A Number of Children: 1 Years of Education: s. college Occupational History disabled Social History Main Topics Smoking status: Never Smoker Smokeless tobacco: Never Used Alcohol Use: 0.0 oz/week 1-2 Cans of beer per week Comment: occassional Drug Use: No Sexual Activity: Not Currently Other Topics Concern Not on file Social History Narrative Lives alone x 1 wk, moved from [facility], , 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 2 falls in the last 6 months. Family History Problem Relation Age of Onset Heart disease Father Heart disease Sister Diabetes type II Sister Heart Problems Brother I have personally reviewed the social history, pertinent history has been addressed. Review of Systems Constitutional: Negative for fever, chills Eyes: Negative for vision changes Nose: Negative for congestion, nosebleeds Throat: Negative for sore throat CV/Resp: Negative for chest pain, ffocqmdlw-bj-xafmgc, cough GI: Positive for abdominal pain Negative for nausea, vomiting, or diarrhea : Negative for urinary problems Musculoskeletal: Negative for back pain, joint pain Skin: Negative for rash Neuro/Psych: Positive for numbness to right leg and face, generalized weakness, tremors Negative for headache Endo/heme/Lymph: Negative for swollen lymph nodes, easy bruising Physical Exam BP 158/66 mmHg | Pulse 61 | Temp(Src) 99 F (37.2 C) (Oral) | Resp 20 | Wt 105.1 kg (231 lb 11.3 oz) | SpO2 96% Vital signs interpretation: Elevated blood pressure, otherwise normal. Pulse Oximetry interpretation: Normal General: Alert, in no apparent distress Eyes: Normal inspection, pupils equal and round, non-icteric Pupils are 3 mm and reactive ENT: Ears normal Nose normal Moist mucous membranes Oropharynx clear Neck: Normal inspection Supple Cardiovasc: Rate and rhythm normal No murmurs 2+ pulses all 4 extremities Respiratory: Breath sounds normal bilaterally No rales, wheezing or rhonchi Abdomen: Soft, non-tender, non-distended No guarding or rebound No peritoneal sign Back: Normal inspection Extremities: No swelling or redness Skin: Color normal Warm and dry No rash Neuro: Alert, no AMS Moving all extremities Decreased strength in right lower extremity compared to left. CN II-XII intact Medical Decision Making and Emergency Department Course ED Department Course 60 y.o. male presents to the ED with a chief complaints of right lower extremity weakness that is new since 1 pm. Outside window for TPA. Will get labs, head CT, and reevaluate the p atient. Review of vitals BP 158/66 mmHg | Pulse 61 | Temp(Src) 99 F (37.2 C) (Oral) | Resp 20 | Wt 105.1 kg (231 lb 11.3 oz) | SpO2 96% 8:[address] Gr, Radiologist, who reports the patient's head CT is negative for stroke. 8:32 PM. Labs reviewed, showing anemia: HGB 12.7, HCT 37.2, hyperglycemia 188, decreased BU N 27, elevated creatinine 1.8 and decreased EGFR 41. 8:35 PM. Patient reevaluation. I have discussed all ED results and my clinical impression w ith the patient. We discussed the plan of care of admission, and the patient is both underst anding and agreeable at this time. All questions and concerns addressed. Will consult Hospit ali. 8:[address] Marti, Hospitalist, who accepts the patient for admission. Patient has elevated blood pressure, in accordance with measure 317 I have advised patient to have recheck of BP with their pcp, patient agrees. DDx: I considered CVA, TIA, electrolyte abnormalities, hypothyroidism, migraine, venous thr ombosis, psychiatric disorders, endocrine disorders among others in my workup which I discus sed with the pt. Pt with leg weakness, concerned for stroke so pt admitted to medicine with plan for mri and stroke workup. Medications PARoxetine (PAXIL) tablet 40 mg (not administered) tiotropium (SPIRIVA) inhalation capsule 18 mcg (not administered) nitroGLYCERIN (NITROSTAT) SL tablet 0.4 mg (not administered) budesonide-formoterol (SYMBICORT) 160-4.5 MCG/ACT inhaler 2 puff (not administered) ARIPiprazole (ABILIFY) tablet 10 mg (not administered) lamoTRIgine (LaMICtal) tablet 100 mg (not administered) tamsulosin (FLOMAX) capsule 0.4 mg (not administered) amLODIPine (NORVASC) tablet 10 mg (not administered) HYDROcodone-acetaminophen (NORCO) 5-325 MG per tablet 1 tablet (not administered) diltiazem (CARDIZEM CD) 24 hr capsule 180 mg (not administered) fluticasone (FLONASE) 50 MCG/ACT nasal 1 spray (not administered) warfarin (COUMADIN) tablet 5 mg (not administered) lisinopril (ZESTRIL) tablet 60 mg (not administered) VENTOLIN HFA 108 (90 BASE) MCG/ACT IN AERS (not administered) insulin glargine (LANTUS) injection 60 Units (not administered) aspirin tablet 325 mg (not administered) Or aspirin suppository 300 mg (not administered) atorvastatin (LIPITOR) tablet 80 mg (not administered) acetaminophen (TYLENOL) tablet 650 mg (not administered) Or acetaminophen (TYLENOL) suppository 650 mg (not administered) ondansetron (ZOFRAN) tablet 4 mg (not administered) Or ondansetron (ZOFRAN) injection 4 mg (not administered) polyethylene glycol (GLYCOLAX) packet 17 g (not administered) enoxaparin (LOVENOX) injection 40 mg (not administered) sodium chloride 0.9 % infusion (not administered) labetalol (NORMODYNE) injection 10 mg (not administered) famotidine (PEPCID) tablet 20 mg (not administered) Or famotidine (PEPCID) IVPB 20 mg (not administered) dextrose 10 % infusion (not administered) dextrose 50 % solution 12 mL (not administered) glucagon (GLUCAGEN) injection 0.5 mg (not administered) dextrose 50 % solution 25 mL (not administered) glucagon (GLUCAGEN) injection 1 mg (not administered) insulin lispro (human) (HUMALOG) injection 0-6 Units (not administered) insulin lispro (human) (HUMALOG) injection 0-3 Units (not administered) sodium chloride 0.9 % flush 10 mL (not administered) gadobenate dimeglumine (MULTIHANCE) injection 20.84 mL (not administered) Filed Vitals: 06/16/16 1931 06/16/16203606/16/16212506/16/162205 BP: 158/66 152/71 124/65 141/63 Pulse: 61 53 54 50 Temp: 99 F (37.2 C) 97.9 F (36.6 C) TempSrc: Oral Oral Resp: 20 16 18 Height: 1.803 m (5' 11") Weight: 105.1 kg (231 lb 11.3 oz) 104.237 kg (229 lb 12.8 oz) SpO2: 96% 94% 96% 98% Records Reviewed Old medical records. Nursing notes. Laboratory Evaluation Results Procedure Component Value Ref Range Date/Time ED Stroke Panel [[id number]] (Abnormal) Collected: 06/16/162000 Order Status: Completed Updated: 06/16/162034 WBC 10.85 3.80 - 11.00 K/uL RBC 4.44 4.20 - 5.70 M/uL HGB 12.7 (L) 13.2 - 17.0 g/dL HCT 37.2 (L) 39.0 - 50.0 % MCV 83.8 80.0 - 100.0 fl MCH 28.6 27.0 - 34.0 pg MCHC 34.1 32.0 - 35.5 g/dL RDW SD 45.5 37 - 53 fl PLT 257 150 - 400 K/uL MPV 7.9 fl DIFF TYPE AUTOMATED NEUTROPHILS 58.15 % LYMPHOCYTES 28.45 % MONOCYTES 9.18 % EOSINOPHILS 3.40 % BASOPHILS 0.82 % NEUTROPHILS ABS 6.31 1.90 - 7.40 K/uL LYMPHOCYTES ABS 3.09 1.00 - 3.90 K/uL MONOCYTES ABS 1.00 (H) 0.00 - 0.80 K/uL EOSINOPHILS ABS 0.37 0.00 - 0.50 K/uL BASOPHILS ABS 0.09 0.00 - 0.10 K/uL SODIUM 140 135 - 145 mmol/L POTASSIUM 4.0 3.5 - 4.9 mmol/L CHLORIDE 106 99 - 109 mmol/L CO2 29 23 - 32 mmol/L ANION GAP AGAP 10 5 - 20 mmol/L GLUCOSE 188 (H) 65 - 99 mg/dL BUN 27 (H) 8 - 25 mg/dL CREATININE 1.8 (H) 0.70 - 1.30 mg/dL BUN/CREAT 15 CALCIUM 9.1 8.5 - 10.5 mg/dL TOTAL PROTEIN 7.0 6.3 - 8.2 g/dL Albumin 3.3 3.3 - 4.8 g/dL GLOBULIN 3.8 1.3 - 4.9 g/dL A/G 0.9 (L) 1.0 - 2.4 TBIL 0.3 0.1 - 1.5 mg/dL ALK PHOS 53 35 - 115 U/L AST 18 10 - 45 U/L ALT 18 10 - 65 U/L EGFR 41 (L) >60 mL/min/1.73m2 INR 1.0 APTT 24 23 - 32 seconds CPK 160 55 - 400 U/L MMB 2.5 0.5 - 3.6 ng/mL CK-MB Index 1.6 TROPONIN I <0.020 0.00 - 0.10 ng/mL I personally reviewed the lab results and they have been posted to the chart. Pertinent po sitive and negative findings have been addressed appropriately and I have discussed any abno rmal labs with the patient. Radiology and EKG Evaluation Imaging Results CT Head Non-Con (Final result) Result time: 06/16/16 20:30:06 Final result by Rad Results In Richard (06/16/16 20:30:06) Impression: 1. No acute intracranial abnormalities. Narrative: HISTORY: CVA. COMPARISON: 02/01/16 CT brain, CTA head and neck. TECHNIQUE: 5-mm axial noncontrast CT images of the brain using automated exposure control were acquire d from the foramen magnum through the cranial vertex. FINDINGS: The cortical sulci, basal cisterns, ventricles all appear unremarkable. There is no intracr anial hemorrhage. No mass effect. Incompletely included paranasal sinuses and mastoid air ce lls are clear. Bety bullosa left middle turbinate, with minimal deviation of the nasal sep liza towards the right. ====EKG Interpretation==== Time: 2009 Rate: 48 Rhythm: sinus bradycardia [place]: normal Intervals: normal ST: normal Compared to 02/01/16 there is no change Overall: Nonspecific EKG Interpreted by Jose Wagner D.O. 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 Information rec orded by the scribe has been reviewed and validated by me. I agree with its contents. Signed by: Kari Ashraf 06/16/2016 8:53 PM DO Jose De La Cruz DO 06/16/16 [id number] onversion Merchant saction, Provider Unknown - 06/16/2016 7:19 PM PDTFormatting of this note might be differen t from the original. ED Notes by Mohit Davies RN at 06/16/161918 Author: Mohit Davies RN Service: (none) Author Type: Registered Nurse Filed: 06/16/161920 Date of Service: 06/16/161918 Status: Signed Passenger Tire Builder: Mohit Davies RN (Registered Nurse) Pt comes from [facility]; phone report from Nick Weiss: Pt has new onset of RLE numbness after waking up from nap. Hx of TIA and stroke, developmental delay and parasthesias. Pt tra nsport via private vehicle. Vitals: 112/70 BP, 59 HR, 99.1F, 16 RR, 98% O2 on RA Mohit Davies RN 06/16/161920 docume nted in this encounter Miscellaneous Notes Plan of Care - Conversion Transaction, Provider Unknown - 06/17/2016 11:25 AM PDT Plan of Care by Igor Birch RN at 06/17/161124 Author: Igor Birch RN Service: (none) Author Type: Registered Nurse Filed: 06/17/161144 Date of Service: 06/17/161124 Status: Signed Passenger Tire Builder: Igor Bicrh RN (Registered Nurse) Balance LTG - Patient will maintain balance to allow for safe mobility Progressing Daily Care Daily care needs are met Progressing Mobility LTG - Patient will demonstrate safe mobility requirements Progressing Psychosocial Needs Demonstrates ability to cope with hospitalization/illness Progressing Collaborate with patient/family/caregiver to identify patient specific goals for this h ospitalization Progressing Safety Patient will be injury free during hospitalization Progressing docume nted in this encounter Plan of Treatment +--------+---------+ + + + | Date | Type | Specialty | Care Team | Description | +--------+---------+ + + + | 09/10/ | Office | Geriatric Medicine | Mireya Pack, | | | 2019 | Visit | | ULTRASOUND APPLICATIONS SPECIALIST [address] | | | | | | [address] [place], | | | | | | [place] [address] | | | | | | [phone] | | | | | | | | +--------+---------+ + + + | 09/29/ | Office | Urology | Mireya Pack, | | | 2019 | Visit | | ULTRASOUND APPLICATIONS SPECIALIST [address] | | | | | | [address] [place], | | | | | | [place] [address] | | | | | | [phone] | | | | | | | | | | | | Toy Wild, DO | | | | | | [address] | | | | | | [place] [address] | | | | | | [phone] | | | | | | | | +--------+---------+ + + + documented as of this encounter Procedures + +--------+ + + + | Procedure Name | Priori | Date/Time | Associated Diagnosis | Comments | | | ty | | | | + +--------+ + + + | POC GLUCOSE | Routin | 06/17/2016 | | Results for this | | | e | 11:30 AM | | procedure are in the | | | | PDT | | results section. | + +--------+ + + + | ECHO COMPLETE W | Routin | 06/17/2016 | | Results for this | | CONTRAST | e | 10:15 AM | | procedure are in the | | | | PDT | | results section. | + +--------+ + + + | URINALYSIS WITH | Routin | 06/17/2016 | | Results for this | | MICROSCOPIC IF | e | 7:45 AM | | procedure are in the | | INDICATED | | PDT | | results section. | + +--------+ + + + | POC GLUCOSE | Routin | 06/17/2016 | | Results for this | | | e | 5:53 AM | | procedure are in the | | | | PDT | | results section. | + +--------+ + + + | EXTERNAL LAB: CBC | Routin | 06/17/2016 | | Results for this | | | e | 4:33 AM | | procedure are in the | | | | PDT | | results section. | + +--------+ + + + | LIPID PANEL | Routin | 06/17/2016 | | Results for this | | | e | 4:33 AM | | procedure are in the | | | | PDT | | results section. | + +--------+ + + + | PHOSPHORUS | Routin | 06/17/2016 | | Results for this | | | e | 4:33 AM | | procedure are in the | | | | PDT | | results section. | + +--------+ + + + | MAGNESIUM | Routin | 06/17/2016 | | Results for this | | | e | 4:33 AM | | procedure are in the | | | | PDT | | results section. | + +--------+ + + + | HEMOGLOBIN A1C | Routin | 06/17/2016 | | Results for this | | | e | 4:33 AM | | procedure are in the | | | | PDT | | results section. | + +--------+ + + + | BILIRUBIN, DIRECT | Routin | 06/17/2016 | | Results for this | | | e | 4:33 AM | | procedure are in the | | | | PDT | | results section. | + +--------+ + + + | COMPREHENSIVE | Routin | 06/17/2016 | | Results for this | | METABOLIC PANEL | e | 4:33 AM | | procedure are in the | | | | PDT | | results section. | + +--------+ + + + | POC GLUCOSE | Routin | 06/16/2016 | | Results for this | | | e | 11:09 PM | | procedure are in the | | | | PDT | | results section. | + +--------+ + + + | MRI ANGIOGRAM NECK W | Routin | 06/16/2016 | | Results for this | | WO CONTRAST | e | 11:05 PM | | procedure are in the | | | | PDT | | results section. | + +--------+ + + + | MRI BRAIN WO | Routin | 06/16/2016 | | Results for this | | CONTRAST ANGIOGRAM | e | 10:55 PM | | procedure are in the | | HEAD WO CONTRAST | | PDT | | results section. | + +--------+ + + + | CT HEAD WO CONTRAST | Routin | 06/16/2016 | | Results for this | | | e | 8:20 PM | | procedure are in the | | | | PDT | | results section. | + +--------+ + + + | ECG 12 LEAD | Routin | 06/16/2016 | | Results for this | | | e | 8:10 PM | | procedure are in the | | | | PDT | | results section. | + +--------+ + + + | HISTORICAL LAB PANEL | Routin | 06/16/2016 | | Results for this | | RESULT | e | 8:01 PM | | procedure are in the | | | | PDT | | results section. | + +--------+ + + + documented in this encounter Results POC Glucose (06/17/2016 11:30 AM PDT) + + + + + + | Component | Value | Ref Range | Performed | Pathologist | | | | | At | Signature | + + + + + + | Glucose, | 207 (H)Comment: Testing | 65 - 99 mg/dL | EXTERNAL | | | Fingerstick | performed at [facility] [place];[address] | | | [address];[place] | | | | | | [address] | | | | + + + + + + + + | Specimen | + + | | + + + +---------+ + + | Performing | Address | City/State/Zipcode | Phone Number | | Organization | | | | + +---------+ + + | EXTERNAL LAB | | | | + +---------+ + + ECHO Complete w Contrast (06/17/2016 10:15 AM PDT) + + | Specimen | + + | | + + + + + | Impressions | Performed At | + + + | 1. Left ventricular systolic function is hyperdynamic with an | | | estimated EF of >70%. 2. There is mild concentric left ventricular | | | hypertrophy. | | + + + + + + | Narrative | Performed At | + + + | Patient Name: NORAH GR Date of : 1955 | | | Performing Physician: Alexei Camacho MD | | | | | | INDICATIONS STROKE CONCLUSIONS 1. Left | | | ventricular systolic function is hyperdynamic with an estimated EF of | | | >70%. 2. There is mild concentric left ventricular hypertrophy. | | | FINDINGS -------- Left Ventricle: Left ventricular systolic function | | | is hyperdynamic with an estimated EF of >70%. Left Ventricle: The | | | left ventricle cavity size is normal. Left Ventricle: There is mild | | | concentric left ventricular hypertrophy. Left Ventricle: Sigmoid | | | shaped septum with focal hypertrophy of the basal septum. Right | | | Ventricle: The right ventricle is normal in size. Left Atrium: The | | | left atrium is mildly dilated. Right Atrium: The right atrium is | | | normal in size. Aortic Valve: The aortic valve is trileaflet and | | | appears structurally normal. Aortic Valve: There is mild aortic valve | | | sclerosis without stenosis. Aortic Valve: There is no evidence of | | | aortic regurgitation. Aortic Valve: There is no evidence of aortic | | | stenosis. Mitral Valve: The mitral valve is normal. Mitral Valve: No | | | mitral regurgitation. Tricuspid Valve: The tricuspid valve appears | | | structurally normal. Tricuspid Valve: No regurgitation noted | | | Tricuspid Valve: The poor TR signal prevents accurate estimation of | | | pulmonary pressures. Pulmonic Valve: The pulmonic valve was not well | | | visualized. Pericardium: There is no pericardial effusion. | | | IVC/Hepatic Veins: The IVC was not well visualized. Aorta: The aortic | | | root, ascending aorta and aortic arch are normal. MEASUREMENTS | | | Ao asc: 3.80 cm Ao sinus: 3.[address] junct: | | | 3.44 cm IVC: 2.81 cm LA Major: 4.89 cm EDV(Teich): | | | 140.12 ml IVSd: 0.96 cm LVIDd: 5.38 cm LVPWd: 1.12 cm | | | LVOT Diam: 2.21 cm %FS: 42.31 % EF(Teich): 72.86 % | | | ESV(Teich): 38.02 ml IVSs: 1.32 cm LVIDs: 3.10 cm LVPWs: | | | 1.83 cm SV(Teich): 102.09 ml RA Major: 5.10 cm RVIDd: | | | 2.42 cm LVEF MOD A2C: 80.70 % SV MOD A2C: 86.63 ml LVEF MOD | | | A4C: 85.54 % SV MOD A4C: 84.25 ml EF Biplane: 83.50 % | | | LVEDV MOD BP: 105.63 ml LVESV MOD BP: 17.42 ml LVEDV MOD A2C: | | | 107.34 ml LVLd A2C: 9.88 cm LVEDV MOD A4C: 98.49 ml LVLd | | | A4C: 9.28 cm LVESV MOD A2C: 20.71 ml LVLs A2C: 8.06 cm | | | LVESV MOD A4C: 14.23 ml LVLs A4C: 6.27 cm LAESV(A-L): 44.86 | | | ml LAESV Index (A-L): 20.02 ml/m2 LAAs A2C: 15.86 cm2 LAESV | | | A-L A2C: 38.52 ml LALs A2C: 5.54 cm LAAs A4C: 18.18 cm2 | | | LAESV A-L A4C: 51.41 ml LALs A4C: 5.45 cm Ao Diam: 3.55 cm | | | AV Cusp: 2.06 cm LA Diam: 4.52 cm LA/Ao: 1.27 D-E | | | Excursion: 1.83 cm E-F [place]: 0.10 m/s EPSS: 0.15 cm HR: | | | 49.82 BPM AV maxP.99 mmHg AV meanP.93 mmHg AV | | | Vmax: 1.87 m/s AV Vmean: 1.35 m/s AV VTI: 46.29 cm VANE | | | Vmax: 3.08 cm2 VANE (VTI): 3.04 cm2 AVAI Vmax: 0.00 cm2/m2 | | | AVAI (VTI): 0.00 cm2/m2 LVCI Dopp: 3.25 l/minm2 LVCO Dopp: | | | 7.28 l/min HR: 51.60 BPM LVOT maxP.93 mmHg LVOT meanPG: | | | 4.67 mmHg LVSI Dopp: 63.02 ml/m2 LVSV Dopp: 141.18 ml LVOT | | | Vmax: 1.49 m/s LVOT Vmean: 1.00 m/s LVOT VTI: 36.52 cm MV | | | A Mick: 0.87 m/s MV DecT: 275.04 ms MV E Mick: 1.06 m/s MV | | | E/A Ratio: 1.21 MV PHT: 84.62 ms MVA By PHT: 2.59 cm2 MV A | | | Dur: 119.95 ms MV maxP.96 mmHg MV meanP.96 mmHg | | | MV Vmax: 1.22 m/s MV Vmean: 0.62 m/s MV VTI: 47.71 cm MVA | | | (VTI): 2.95 cm2 Septal e': 0.11 m/s Septal E/e': 9.67 | | | Lateral e': 0.11 m/s Lateral E/e': 8.97 P Vein A: 0.35 m/s | | | P Vein A Dur: 170.70 ms P Vein D: 0.46 m/s P Vein S/D Ratio: | | | 1.54 P Vein S: 0.71 m/s RAP: 10 mmHg RV S': 0.20 m/s | | | RVSP: 43.03 mmHg TR maxP.03 mmHg TR Vmax: 2.87 m/s TV | | | A Mick: 0.49 m/s TV Dec [place]: 1.57 m/s2 TV Dec Time: | | | 465.17 ms TV E Mick: 0.73 m/s TV E/A Ratio: 1.46 | | | Livestock Trucker: LUMA Authenticated by: Alexei Camacho MD Report | | | Date/Time: 06-17-2016 13:10:22 | | + + + + + | Procedure Note | + + | Joaquin Ramos Conversion - 09/19/2018 4:20 PM PDT Patient Name: Sim GR of | | : 1955 Performing Physician: Alexei Camacho | | INDICATIONS S | | TROKE CONCLUSIONS 1. Left ventricular systolic function is hyperdynamic with | | an estimated EF of >70%.2. There is mild concentric left ventricular hypertrophy. | | FINDINGS--------Left Ventricle: Left ventricular systolic function is hyperdynamic with | | an estimated EF of >70%.Left Ventricle: The left ventricle cavity size is normal.Left | | Ventricle: There is mild concentric left ventricular hypertrophy.Left Ventricle: Sigmoid | | shaped septum with focal hypertrophy of the basal septum.Right Ventricle: The right | | ventricle is normal in size.Left Atrium: The left atrium is mildly dilated.Right Atrium: | | The right atrium is normal in size.Aortic Valve: The aortic valve is trileaflet and | | appears structurally normal.Aortic Valve: There is mild aortic valve sclerosis without | | stenosis.Aortic Valve: There is no evidence of aortic regurgitation.Aortic Valve: There | | is no evidence of aortic stenosis.Mitral Valve: The mitral valve is normal.Mitral Valve: | | No mitral regurgitation.Tricuspid Valve: The tricuspid valve appears structurally | | normal.Tricuspid Valve: No regurgitation notedTricuspid Valve: The poor TR signal | | prevents accurate estimation of pulmonary pressures.Pulmonic Valve: The pulmonic valve | | was not well visualized.Pericardium: There is no pericardial effusion.IVC/Hepatic Veins: | | The IVC was not well visualized.Aorta: The aortic root, ascending aorta and aortic arch | | are normal. MEASUREMENTS Ao asc: 3.80 cmAo sinus: 3.[address] junct: | | 3.44 cmIVC: 2.81 cmLA Major: 4.89 cmEDV(Teich): 140.12 mlIVSd: 0.96 cmLVIDd: | | 5.38 cmLVPWd: 1.12 cmLVOT Diam: 2.21 cm%FS: 42.31 %EF(Teich): 72.86 %ESV(Teich): | | 38.02 mlIVSs: 1.32 cmLVIDs: 3.10 cmLVPWs: 1.83 cmSV(Teich): 102.09 mlRA | | Major: 5.10 cmRVIDd: 2.42 cmLVEF MOD A2C: 80.70 %SV MOD A2C: 86.63 mlLVEF MOD | | A4C: 85.54 %SV MOD A4C: 84.25 mlEF Biplane: 83.50 %LVEDV MOD BP: 105.63 mlLVESV | | MOD BP: 17.42 mlLVEDV MOD A2C: 107.34 mlLVLd A2C: 9.88 cmLVEDV MOD A4C: 98.49 | | mlLVLd A4C: 9.28 cmLVESV MOD A2C: 20.71 mlLVLs A2C: 8.06 cmLVESV MOD A4C: 14.23 | | mlLVLs A4C: 6.27 cmLAESV(A-L): 44.86 mlLAESV Index (A-L): 20.02 ml/m2LAAs A2C: | | 15.86 [id number] A-L A2C: 38.52 mlLALs A2C: 5.54 cmLAAs A4C: 18.18 [id number] A-L A4C: | | 51.41 mlLALs A4C: 5.45 cmAo Diam: 3.55 cmAV Cusp: 2.06 cmLA Diam: 4.52 | | cmLA/Ao: 1.27D-E Excursion: 1.83 cmE-F [place]: 0.10 m/sEPSS: 0.15 cmHR: 49.82 | | BPMAV maxP.99 mmHgAV meanP.93 mmHgAV Vmax: 1.87 m/Jason Vmean: 1.35 m/Jason | | VTI: 46.29 cmAVA Vmax: 3.08 cm2AVA (VTI): 3.04 [id number] Vmax: 0.00 cm2/m2AVAI | | (VTI): 0.00 cm2/m2LVCI Dopp: 3.25 l/[id number] Dopp: 7.28 l/minHR: 51.60 BPMLVOT | | maxP.93 mmHgLVOT meanP.67 mmHgLVSI Dopp: 63.02 ml/m2LVSV Dopp: 141.18 | | mlLVOT Vmax: 1.49 m/sLVOT Vmean: 1.00 m/sLVOT VTI: 36.52 cmMV A Mick: 0.87 m/sMV | | DecT: 275.04 msMV E Mick: 1.06 m/sMV E/A Ratio: 1.21MV PHT: 84.62 msMVA By PHT: | | 2.59 cm2MV A Dur: 119.95 msMV maxP.96 mmHgMV meanP.96 mmHgMV Vmax: 1.22 | | m/sMV Vmean: 0.62 m/sMV VTI: 47.71 cmMVA (VTI): 2.95 [id number] e': 0.11 | | m/sSeptal E/e': 9.67Lateral e': 0.11 m/sLateral E/e': 8.97P Vein A: 0.35 m/sP | | Vein A Dur: 170.70 msP Vein D: 0.46 m/sP Vein S/D Ratio: 1.54P Vein S: 0.71 | | m/sRAP: 10 mmHgRV S': 0.20 m/sRVSP: 43.03 mmHgTR maxP.03 mmHgTR Vmax: | | 2.87 m/sTV A Mick: 0.49 m/sTV Dec [place]: 1.57 m/s2TV Dec Time: 465.17 msTV E Mick: | | 0.73 m/sTV E/A Ratio: 1.46 Livestock Trucker: Abdoulayeticated by: Alexei Camacho | | MDReport Date/Time: 06-17-2016 13:10:22 IMPRESSION: 1. Left ventricular systolic | | function is hyperdynamic with an estimated EF of >70%.2. There is mild concentric left | | ventricular hypertrophy. | |EDV(Teich): 140.12 ml | |IVSd: 0.96 cm | |LVIDd: 5.38 cm | |LVPWd: 1.12 cm | |LVOT Diam: 2.21 cm | |%FS: 42.31 % | |EF(Teich): 72.86 % | |ESV(Teich): 38.02 ml | |IVSs: 1.32 cm | |LVIDs: 3.10 cm | |LVPWs: 1.83 cm | |SV(Teich): 102.09 ml | |RA Major: 5.10 cm | |RVIDd: 2.42 cm | |LVEF MOD A2C: 80.70 % | |SV MOD A2C: 86.63 ml | |LVEF MOD A4C: 85.54 % | |SV MOD A4C: 84.25 ml | |EF Biplane: 83.50 % | |LVEDV MOD BP: 105.63 ml | |LVESV MOD BP: 17.42 ml | |LVEDV MOD A2C: 107.34 ml | |LVLd A2C: 9.88 cm | |LVEDV MOD A4C: 98.49 ml | |LVLd A4C: 9.28 cm | |LVESV MOD A2C: 20.71 ml | |LVLs A2C: 8.06 cm | |LVESV MOD A4C: 14.23 ml | |LVLs A4C: 6.27 cm | |LAESV(A-L): 44.86 ml | |LAESV Index (A-L): 20.02 ml/m2 | |LAAs A2C: 15.86 cm2 | |LAESV A-L A2C: 38.52 ml | |LALs A2C: 5.54 cm | |LAAs A4C: 18.18 cm2 | |LAESV A-L A4C: 51.41 ml | |LALs A4C: 5.45 cm | |Ao Diam: 3.55 cm | |AV Cusp: 2.06 cm | |LA Diam: 4.52 cm | |LA/Ao: 1.27 | |D-E Excursion: 1.83 cm | |E-F [place]: 0.10 m/s | |EPSS: 0.15 cm | |HR: 49.82 BPM | |AV maxP.99 mmHg | |AV meanP.93 mmHg | |AV Vmax: 1.87 m/s | |AV Vmean: 1.35 m/s | |AV VTI: 46.29 cm | |VANE Vmax: 3.08 cm2 | |VANE (VTI): 3.04 cm2 | |AVAI Vmax: 0.00 cm2/m2 | |AVAI (VTI): 0.00 cm2/m2 | |LVCI Dopp: 3.25 l/minm2 | |LVCO Dopp: 7.28 l/min | |HR: 51.60 BPM | |LVOT maxP.93 mmHg | |LVOT meanP.67 mmHg | |LVSI Dopp: 63.02 ml/m2 | |LVSV Dopp: 141.18 ml | |LVOT Vmax: 1.49 m/s | |LVOT Vmean: 1.00 m/s | |LVOT VTI: 36.52 cm | |MV A Mick: 0.87 m/s | |MV DecT: 275.04 ms | |MV E Mick: 1.06 m/s | |MV E/A Ratio: 1.21 | |MV PHT: 84.62 ms | |MVA By PHT: 2.59 cm2 | |MV A Dur: 119.95 ms | |MV maxP.96 mmHg | |MV meanP.96 mmHg | |MV Vmax: 1.22 m/s | |MV Vmean: 0.62 m/s | |MV VTI: 47.71 cm | |MVA (VTI): 2.95 cm2 | |Septal e': 0.11 m/s | |Septal E/e': 9.67 | |Lateral e': 0.11 m/s | |Lateral E/e': 8.97 | |P Vein A: 0.35 m/s | |P Vein A Dur: 170.70 ms | |P Vein D: 0.46 m/s | |P Vein S/D Ratio: 1.54 | |P Vein S: 0.71 m/s | |RAP: 10 mmHg | |RV S': 0.20 m/s | |RVSP: 43.03 mmHg | |TR maxP.03 mmHg | |TR Vmax: 2.87 m/s | |TV A Mick: 0.49 m/s | |TV Dec [place]: 1.57 m/s2 | |TV Dec Time: 465.17 ms | |TV E Mick: 0.73 m/s | |TV E/A Ratio: 1.46 | | | |[employer]: LUMA | |Authenticated by: Alexei Camacho MD | |Report Date/Time: 06-17-2016 13:10:22 | | | |IMPRESSION: | |1. Left ventricular systolic function is hyperdynamic with an estimated EF of >70%. | |2. There is mild concentric left ventricular hypertrophy. | + + Urinalysis with Microscopic if Indicated (06/17/2016 7:45 AM PDT) + + + + + [...] + + + + | Specific | 1.015 | 1.002 - 1.030 | EXTERNAL | | | [place], | | | LAB | | | Urine | | | | | + + + + + + | Leukocyte | NEGATIVEComment: | | EXTERNAL | | | Esterase, [...] | 6.0 | 5.0 - 8.0 | EXTERNAL | [...] + + + + | Glucose, | NEGATIVEComment: Testing | mg/dL | EXTERNAL | | | Urine | performed at [facility], [address] | | LAB | | | | [address], | | | | | | [place] [address] | | | | + + + + + + + + | Specimen | + + | Urine specimen | | (specimen) | + + + +---------+ + + | Performing | Address | City/State/Zipcode | Phone Number | | Organization | | | | + +---------+ + + | EXTERNAL LAB | | | | + +---------+ + + POC Glucose (06/17/2016 5:53 AM PDT) + + + + + + | Component | Value | Ref Range | Performed | Pathologist | | | | | At | Signature | + + + + + + | Glucose, | 138 (H)Comment: Testing | 65 - 99 mg/dL | EXTERNAL | | | Fingerstick | performed at [facility];[address] | | LAB | | | | [address];[place] | | | | | | [address] | | | | + + + + + + + + | Specimen | + + | | + + + +---------+ + + | Performing | Address | City/State/Zipcode | Phone Number | | Organization | | | | + +---------+ + + | EXTERNAL LAB | | | | + +---------+ + + External Lab: CBC (06/17/2016 4:33 AM PDT) + + + + + + | Component | Value | Ref Range | Performed | Pathologist | | | | | At | Signature | + + + + + + | WBC | 8.65 | 3.80 - 11.00 | EXTERNAL | | | | | K/uL | LAB | | + + + + + + | Non- | 4.10 (L) | 4.20 - 5.70 | EXTERNAL | | | Red Blood | | M/uL | LAB | | | Cells | | | | | | Counted | | | | | + + + + + + | Hemoglobin | 11.8 (L) | 13.2 - 17.0 | EXTERNAL | | | | | g/dL | LAB | | + + + + + + | Hematocrit, | 34.6 (L) | 39.0 - 50.0 % | EXTERNAL | | | POC | | | LAB | | + + + + + + | MCV | 84.4 | 80.0 - 100.0 fl | EXTERNAL | | | | | | LAB | | + + + + + + | MCH | 28.9 | 27.0 - 34.0 pg | EXTERNAL | | | | | | LAB | | + + + + + + | MCHC | 34.2 | 32.0 - 35.5 | EXTERNAL | | | | | g/dL | LAB | | + + + + + + | RDW-CV | 43.8 | 37 - 53 fl | EXTERNAL | | | | | | LAB | | + + + + + + | Platelet | 239 | 150 - 400 K/uL | EXTERNAL | | | Count | | | LAB | | | Plasma | | | | | + + + + + + | MPV | 8.3 | fl | EXTERNAL | | | | | | LAB | | + + + + + + | Differentia | AUTOMATED | | EXTERNAL | | | l Type | | | LAB | | + + + + + + | % Segmented | 52.27 | % | EXTERNAL | | | | | | LAB | | | Neutrophils | | | | | + + + + + + | % | 33.04 | % | EXTERNAL | | | Lymphocytes | | | LAB | | + + + + + + | % Monocytes | 9.65 | % | EXTERNAL | | | | | | LAB | | + + + + + + | % | 4.47 | % | EXTERNAL | | | Eosinophils | | | LAB | | + + + + + + | % Basophils | 0.57 | % | EXTERNAL | | | | | | LAB | | + + + + + + | Absolute | 4.52 | 1.90 - 7.40 | EXTERNAL | | | Segmented | | K/uL | LAB | | | Neutrophils | | | | | + + + + + + | Absolute | 2.86 | 1.00 - 3.90 | EXTERNAL | | | Lymphocytes | | K/uL | LAB | | + + + + + + | Absolute | 0.84 (H) | 0.00 - 0.80 | EXTERNAL | | | Monocytes | | K/uL | LAB | | + + + + + + | Absolute | 0.39 | 0.00 - 0.50 | EXTERNAL | | | Eosinophils | | K/uL | LAB | | + + + + + + | Absolute | 0.05Comment: Testing | 0.00 - 0.10 | EXTERNAL | | | Basophils | performed at [facility], [address] | [address] | LAB | | | | [address], | | | | | | [place] [address] | | | | + + + + + + + + | Specimen | + + | Blood specimen | | (specimen) | + + + +---------+ + + | Performing | Address | City/State/Zipcode | Phone Number | | Organization | | | | + +---------+ + + | EXTERNAL LAB | | | | + +---------+ + + Phosphorus (06/17/2016 4:33 AM PDT) + + + + + + | Component | Value | Ref Range | Performed | Pathologist | | | | | At | Signature | + + + + + + | PHOSPHORUS | 3.4Comment: Testing | 2.3 - 4.8 mg/dL | EXTERNAL | | | | performed at [facility], [address] | | LAB | | | | [address], | | | | | | [place] [address] | | | | + + + + + + + + | Specimen | + + | Blood specimen | | (specimen) | + + + +---------+ + + | Performing | Address | City/State/Zipcode | Phone Number | | Organization | | | | + +---------+ + + | EXTERNAL LAB | | | | + +---------+ + + Magnesium (06/17/2016 4:33 AM PDT) + + + + + + | Component | Value | Ref Range | Performed | Pathologist | | | | | At | Signature | + + + + + + | Magnesium | 2.0Comment: Testing | 1.7 - 2.4 mg/dL | EXTERNAL | | | | performed at [facility], [address] | | LAB | | | | [address], | | | | | | [place] [address] | | | | + + + + + + + + | Specimen | + + | Blood specimen | | (specimen) | + + + +---------+ + + | Performing | Address | City/State/Zipcode | Phone Number | | Organization | | | | + +---------+ + + | EXTERNAL LAB | | | | + +---------+ + + Hemoglobin A1C (06/17/2016 4:33 AM PDT) + + + + + + | Component | Value | Ref Range | Performed | Pathologist | | | | | At | Signature | + + + + + + | Hemoglobin | 8.3 (H)Comment: The | 4.0 - 6.0 % | EXTERNAL | | | A1c | Prydeinig Diabetes | | LAB | | | [...] | | | | | | reference method. | | | | + + + + + + | Glycohemogl | 192Comment: The ADA | mg/dL | EXTERNAL | [...] | | | | | performed at [facility], [address] | | | | | | [address], | | | | | | [place] [address] | | | | + + + + + + + + | Specimen | + + | Blood specimen | | (specimen) | + + + +---------+ + + | Performing | Address | City/State/Zipcode | Phone Number | | Organization | | | | + +---------+ + + | EXTERNAL LAB | | | | + +---------+ + + Bilirubin, Direct (06/17/2016 4:33 AM PDT) + + + + + + | Component | Value | Ref Range | Performed | Pathologist | | | | | At | Signature | + + + + + + | Bilirubin | <0.1Comment: Testing | 0.0 - 0.3 mg/dL | EXTERNAL | | | Direct | performed at [facility], [address] | | LAB | | | | [address], | | | | | | [place] [address] | | | | + + + + + + + + | Specimen | + + | | + + + +---------+ + + | Performing | Address | City/State/Zipcode | Phone Number | | Organization | | | | + +---------+ + + | EXTERNAL LAB | | | | + +---------+ + + Lipid Panel (06/17/2016 4:33 AM PDT) + + + + + + | Component | Value | Ref Range | Performed | Pathologist | | | | | At | Signature | + + + + + + | Cholesterol | 114 | mg/dL | EXTERNAL | | | | | | LAB | | + + + + + + | Triglycerid | 354 (H) | mg/dL | EXTERNAL | | | es | | | LAB | | + + + + + + | HDL | 21 (L) | mg/dL | EXTERNAL | | | | | | LAB | | + + + + + + | LDL, | 22Comment: Testing | mg/dL | EXTERNAL | | | Calculated | performed at [facility], [address] | | LAB | | | | [address], | | | | | | [place] [address] | | | | + + + [...] + +---------+ + + Comprehensive Metabolic Panel (06/17/2016 4:33 AM PDT) + + + + + + | Component | Value | Ref Range | Performed | Pathologist | | | | | At | Signature | + + + + + + | Na | 143 | 135 - 145 | EXTERNAL | | | | | mmol/L | LAB | | + + + + + + | K | 3.9 | 3.5 - 4.9 | EXTERNAL | [...] 13 | 5 - 20 mmol/L | EXTERNAL | | | | | | LAB | | + + + + + + | Glucose, | 168 (H) | 65 - 99 mg/dL | EXTERNAL | | | Fasting | | | LAB | | + + + + + + | BUN | 25 | 8 - 25 mg/dL | EXTERNAL | | | | | | LAB | | + + + + + + | Creatinine | 1.6 (H) | 0.70 - 1.30 | EXTERNAL | | | | | mg/dL | LAB | | + + + + + + | BUN/Creatin | 16 | | EXTERNAL | | | ine Ratio | | | LAB | | + + + + + + | Calcium | 9.1 | 8.5 - 10.5 | EXTERNAL | | | | | mg/dL | LAB | | + + + + + + | Protein, | 6.3 | 6.3 - 8.2 g/dL | EXTERNAL | | | Total | | | LAB | | + + + + + + | Albumin | 3.0 (L) | 3.3 - 4.8 g/dL | EXTERNAL | | | | | | LAB | | + + + + + + | Globulin | 3.3 | 1.3 - 4.9 g/dL | EXTERNAL | | | | | | LAB | | + + + + + + | A/G Ratio | 0.9 (L) | 1.0 - 2.4 | EXTERNAL | | | | | | LAB | | + + + + + + | Bilirubin | 0.2 | 0.1 - 1.5 mg/dL | EXTERNAL | | | Total | | | LAB | | + + + + + + | ALP, | 52 | 35 - 115 U/L | EXTERNAL | | | External | | | LAB | | + + + + + + | AST | 17 | 10 - 45 U/L | EXTERNAL | | | | | | LAB | | + + + + + + | ALT | 19 | 10 - 65 U/L | EXTERNAL | | | | | | LAB | | + + + + + + | Estimated | 47 (L)Comment: GFR <60: | mL/min/1.73m2 | EXTERNAL [...] | | | | | | at [facility], [address] | | | | | | [address], | | | | | | [place] [address] | | | | + + + + + + + + | Specimen | + + | Blood specimen | | (specimen) | + + + +---------+ + + | Performing | Address | City/State/Zipcode | Phone Number | | Organization | | | | + +---------+ + + | EXTERNAL LAB | | | | + +---------+ + + POC Glucose (06/16/2016 11:09 PM PDT) + + + + + + | Component | Value | Ref Range | Performed | Pathologist | | | | | At | Signature | + + + + + + | Glucose, | 169 (H)Comment: Testing | 65 - 99 mg/dL | EXTERNAL | | | Fingerstick | performed at [facility];[address] | | LAB | | | [address];[place], [place] | | | | | | [address] | | | | + + + + + + + + | Specimen | + + | | + + + +---------+ + + | Performing | Address | City/State/Zipcode | Phone Number | | Organization | | | | + +---------+ + + | EXTERNAL LAB | | | | + +---------+ + + MRI Angiogram Neck w wo Contrast (06/16/2016 11:05 PM PDT) + + | Specimen | + + | | + + + + + | Impressions | Performed At | + + + | 1. 20% NASCET stenosis at the origin of the left internal carotid | | | artery, similar to that found on CTA neck 02/01/16. 2. Widely | | | patent right ICA, with 0% NASCET stenosis. 3. Widely patent | | | vertebral arteries. Electronically signed by Bhavin Gr MD on | | | 06/16/2016 11:30 PM | | + + + + + + | Narrative | Performed At | + + + | HISTORY: Elevated blood pressure. CVA. TECHNIQUE: MRA imaging | | | of the neck was performed on a 1.5 [employer] MRI system. Multiplanar MRA | | | sequences according to a standard department protocol were acquired | | | with contrast. Contrast: MultiHance. Dose: 10 mL. | | | COMPARISON: MRA neck 12/05/14. CTA neck 02/01/16. FINDINGS: | | | There appears to be significant stenosis at the origin of the right | | | external carotid artery, but on CTA images, this appears to be due to | | | kinking rather than a significant stenosis. Widely patent right ICA, | | | without stenosis. The left ICA shows minimal stenosis at the | | | origin, 20% NASCET stenosis. This is unchanged compared with CTA. The | | | atherosclerotic changes noted on CT are not well-defined on MRI in | | | both carotid bulbs and origins of the internal carotid arteries. | | | The vertebral arteries are widely patent throughout the neck. | | | Tortuosity of the origins of both vertebral arteries. No stenosis. | | + + + + + | Procedure Note | + + | Richard, Rad Conversion - 09/19/2018 4:20 PM PDT HISTORY:Elevated blood pressure. CVA. | | TECHNIQUE:MRA imaging of the neck was performed on a 1.5 [employer] MRI system. Multiplanar | | MRA sequences according to a standard department protocol were acquired with | | contrast.Contrast: MultiHance. Dose: 10 mL. COMPARISON:MRA neck 12/05/14. CTA neck | | 02/01/16. FINDINGS:There appears to be significant stenosis at the origin of the right | | external carotid artery, but on CTA images, this appears to be due to kinking rather | | than a significant stenosis. Widely patent right ICA, without stenosis. The left ICA | | shows minimal stenosis at the origin, 20% NASCET stenosis. This is unchanged compared | | with CTA. The atherosclerotic changes noted on CT are not well-defined on MRI in both | | carotid bulbs and origins of the internal carotid arteries. The vertebral arteries are | | widely patent throughout the neck. Tortuosity of the origins of both vertebral arteries. | | No stenosis. IMPRESSION: 1. 20% NASCET stenosis at the origin of the left internal | | carotid artery, similar to that found on CTA neck 02/01/16.2. Widely patent right ICA, | | with 0% NASCET stenosis.3. Widely patent vertebral arteries. | |The vertebral arteries are widely patent throughout the neck. Tortuosity of the origins of both vertebral arteries. No stenosis. | | | |IMPRESSION: | |1. 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 | |2. Widely patent right ICA, with 0% NASCET stenosis. | |3. Widely patent vertebral arteries. | | | | | + + MRI Brain Wo MRA Head Wo (06/16/2016 10:55 PM PDT) + + | Specimen | + + | | + + + + + | Impressions | Performed At | + + + | 1. I see no evidence of acute infarct. 2. Scattered | | | periventricular and deep white matter areas of increased signal, | | | unchanged, consistent with mild microvascular ischemic change/gliosis. | | | 3. No MRA significant abnormalities are identified, stable. | | | | | + + + + + + | Narrative | Performed At | + + + | HISTORY: Right-sided numbness. CVA. TECHNIQUE: MRI imaging of | | | the brain was performed on a 1.5 [employer] MRI system. Multiplanar MRI | | | sequences according to a standard department protocol were acquired | | | without contrast. 3-D [id number] MRA images. MIP reformations of | | | the anterior and posterior circulation. COMPARISON: MRA neck | | | same day. MRI brain 05/12/14, 12/05/14. CT brain 06/16/16-07/14/14. | | | FINDINGS: Diffusion images show no evidence of acute infarct. GRE | | | images show no evidence of fair 10 deposition. T2 FLAIR and | | | T2-weighted images show subtle increased signal lining the lateral | | | ventricles and in the frontal deep white matter, unchanged. This is | | | likely due to mild microvascular ischemic change/gliosis. The cortical | | | sulci, basal cisterns, ventricles otherwise appear unremarkable. | | | There is no evidence of intracranial hemorrhage or mass effect. 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 Anterior, | | | middle, and posterior cerebral arteries show no evidence of | | | significant atherosclerotic change. Posterior circulation shows | | | symmetric vertebral arteries. The PICAs are patent. Basilar | | | unremarkable. | | + + + + + | Procedure Note | + + | Joaquin Ramos - 09/19/2018 4:20 PM PDT HISTORY:Right-sided numbness. CVA. | | TECHNIQUE:MRI imaging of the brain was performed on a 1.5 [employer] MRI system. Multiplanar | | MRI sequences according to a standard department protocol were acquired without | | contrast. 3-D [id number] MRA images. MIP reformations of the anterior and posterior | | circulation. COMPARISON:MRA neck same day. MRI brain 05/12/14, 12/05/14. CT brain | | 06/16/16-07/14/14. FINDINGS:Diffusion images show no evidence of acute infarct. GRE | | images show no evidence of fair 10 deposition. T2 FLAIR and T2-weighted images show | | subtle increased signal lining the lateral ventricles and in the frontal deep white | | matter, unchanged. This is likely due to mild microvascular ischemic change/gliosis. The | | cortical sulci, basal cisterns, ventricles otherwise appear unremarkable. There is no | | evidence of intracranial hemorrhage or mass effect. MRA images show a triplicated | | anterior cerebral artery. Anterior, middle, and posterior cerebral arteries show no | | evidence of significant atherosclerotic change. Posterior circulation shows symmetric | | vertebral arteries. The PICAs are patent. Basilar unremarkable. IMPRESSION: 1. I see no | | evidence of acute infarct.2. Scattered periventricular and deep white matter areas of | | increased signal, unchanged, consistent with mild microvascular ischemic | | change/gliosis.3. No MRA significant abnormalities are identified, stable. | | | |1. I see no evidence of acute infarct. | |2. Scattered periventricular and deep white matter areas of increased signal, unchanged, c onsistent with mild microvascular ischemic change/gliosis. | |3. No MRA significant abnormalities are identified, stable. | | | | | + + CT Head wo Contrast (06/16/2016 8:20 PM PDT) + + | Specimen | + + | | + + + + + | Impressions | Performed At | + + + | 1. No acute intracranial abnormalities. | | + + + + + + | Narrative | Performed At | + + + | HISTORY: CVA. COMPARISON: 02/01/16 CT brain, CTA head and | | | neck. TECHNIQUE: 5-mm axial noncontrast CT images of the brain | | | using automated exposure control were acquired from the foramen magnum | | | through the cranial vertex. FINDINGS: The cortical sulci, basal | | | cisterns, ventricles all appear unremarkable. There is no intracranial | | | hemorrhage. No mass effect. Incompletely included paranasal sinuses | | | and mastoid air cells are clear. Bety bullosa left middle turbinate, | | | with minimal deviation of the nasal septum towards the right. | | + + + + + | Procedure Note | + + | Richard, Rad Conversion - 09/19/2018 4:20 PM PDT HISTORY:CVA. COMPARISON:02/01/16 CT | | brain, CTA head and neck. TECHNIQUE:5-mm axial noncontrast CT images of the brain using | | automated exposure control were acquired from the foramen magnum through the cranial | | vertex. FINDINGS:The cortical sulci, basal cisterns, ventricles all appear unremarkable. | | There is no intracranial hemorrhage. No mass effect. Incompletely included paranasal | | sinuses and mastoid air cells are clear. Bety bullosa left middle turbinate, with | | minimal deviation of the nasal septum towards the right. IMPRESSION: 1. No acute | | intracranial abnormalities. | | PM | |FINDINGS: | |The cortical sulci, basal cisterns, ventricles all appear unremarkable. There is no intracr anial hemorrhage. No mass effect. Incompletely included paranasal sinuses and mastoid air ce lls are clear. Bety bullosa left middle turbinate, with minimal | |deviation of the nasal septum towards the right. | | | |IMPRESSION: | |1. No acute intracranial abnormalities. | | | | | + + ECG 12 lead (06/16/2016 8:10 PM PDT) + + + + + [...] | | | | with ECG of 01-FEB-2016 | | | | | | 10:57,No significant | | | | | | [...] | | | | | ONLY, -COMPUTER ([id number]), | | | | | | editor managing director Bryanna Ku | | | | | | ([id number]) on 06/17/2016 | | | | | | 3:11:09 AM | | | | + + + + + + + + | Specimen | + + | | + + + + + | Narrative | Performed At | + + + | Historically converted procedure from [facility] environment | EXTERNAL LAB | + + + + +---------+ + + | Performing | Address | City/State/Zipcode | Phone Number | | Organization | | | | + +---------+ + + | EXTERNAL LAB | | | | + +---------+ + + HISTORICAL LAB PANEL RESULT (06/16/2016 8:01 PM PDT) + + + + + -+ | Component | Value | Ref Range | Performed | Pathologist | | | | | At | Signature | + + + + + -+ | WBC | 10.85 | 3.80 - 11.00 | EXTERNAL | | | | | K/uL | LAB | | + + + + + -+ | Non- | 4.44 | 4.20 - 5.70 | EXTERNAL | | | Red Blood | | M/uL | LAB | | | Cells | | | | | | Counted | | | | | + + + + + -+ | Hemoglobin | 12.7 (L) | 13.2 - 17.0 | EXTERNAL | | | | | g/dL | LAB | | + + + + + -+ | Hematocrit, | 37.2 (L) | 39.0 - 50.0 % | EXTERNAL | | | POC | | | LAB | | + + + + + -+ | MCV | 83.8 | 80.0 - 100.0 fl | EXTERNAL | | | | | | LAB | | + + + + + -+ | MCH | 28.6 | 27.0 - 34.0 pg | EXTERNAL | | | | | | LAB | | + + + + + -+ | MCHC | 34.1 | 32.0 - 35.5 | EXTERNAL | | | | | g/dL | LAB | | + + + + + -+ | RDW-CV | 45.5 | 37 - 53 fl | EXTERNAL | | | | | | LAB | | + + + + + -+ | Platelet | 257 | 150 - 400 K/uL | EXTERNAL | | | Count | | | LAB | | | Plasma | | | | | + + + + + -+ | MPV | 7.9 | fl | EXTERNAL | | | | | | LAB | | + + + + + -+ | Differentia | AUTOMATED | | EXTERNAL | | | l Type | | | LAB | | + + + + + -+ | % Segmented | 58.15 | % | EXTERNAL | | | | | | LAB | | | Neutrophils | | | | | + + + + + -+ | % | 28.45 | % | EXTERNAL | | | Lymphocytes | | | LAB | | + + + + + -+ | % Monocytes | 9.18 | % | EXTERNAL | | | | | | LAB | | + + + + + -+ | % | 3.40 | % | EXTERNAL | | | Eosinophils | | | LAB | | + + + + + -+ | % Basophils | 0.82 | % | EXTERNAL | | | | | | LAB | | + + + + + -+ | Absolute | 6.31 | 1.90 - 7.40 | EXTERNAL | | | Segmented | | K/uL | LAB | | | Neutrophils | | | | | + + + + + -+ | Absolute | 3.09 | 1.00 - 3.90 | EXTERNAL | | | Lymphocytes | | K/uL | LAB | | + + + + + -+ | Absolute | 1.00 (H) | 0.00 - 0.80 | EXTERNAL | | | Monocytes | | K/uL | LAB | | + + + + + -+ | Absolute | 0.37 | 0.00 - 0.50 | EXTERNAL | | | Eosinophils | | K/uL | LAB | | + + + + + -+ | Absolute | 0.09 | 0.00 - 0.10 | EXTERNAL | | | Basophils | | K/uL | LAB | | + + + + + -+ | Na | 140 | 135 - 145 | EXTERNAL | | | | | mmol/L | LAB | | + + + + + -+ | K | 4.0 | 3.5 - 4.9 | EXTERNAL | | | | | mmol/L | LAB | | + + + + + -+ | Cl | 106 | 99 - 109 mmol/L | EXTERNAL | | | | | | LAB | | + + + + + -+ | CO2 | 29 | 23 - 32 mmol/L | EXTERNAL | | | | | | LAB | | + + + + + -+ | Anion Gap | 10 | 5 - 20 mmol/L | EXTERNAL | | | | | | LAB | | + + + + + -+ | Glucose, | 188 (H) | 65 - 99 mg/dL | EXTERNAL | | | Fasting | | | LAB | | + + + + + -+ | BUN | 27 (H) | 8 - 25 mg/dL | EXTERNAL | | | | | | LAB | | + + + + + -+ | Creatinine | 1.8 (H) | 0.70 - 1.30 | EXTERNAL | | | | | mg/dL | LAB | | + + + + + -+ | BUN/Creatin | 15 | | EXTERNAL | | | ine Ratio | | | LAB | | + + + + + -+ | Calcium | 9.1 | 8.5 - 10.5 | EXTERNAL | | | | | mg/dL | LAB | | + + + + + -+ | Protein, | 7.0 | 6.3 - 8.2 g/dL | EXTERNAL | | | Total | | | LAB | | + + + + + -+ | Albumin | 3.3 | 3.3 - 4.8 g/dL | EXTERNAL | | | | | | LAB | | + + + + + -+ | Globulin | 3.8 | 1.3 - 4.9 g/dL | EXTERNAL | | | | | | LAB | | + + + + + -+ | A/G Ratio | 0.9 (L) | 1.0 - 2.4 | EXTERNAL | | | | | | LAB | | + + + + + -+ | Bilirubin | 0.3 | 0.1 - 1.5 mg/dL | EXTERNAL | | | Total | | | LAB | | + + + + + -+ | ALP, | 53 | 35 - 115 U/L | EXTERNAL | | | External | | | LAB | | + + + + + -+ | AST | 18 | 10 - 45 U/L | EXTERNAL | | | | | | LAB | | + + + + + -+ | ALT | 18 | 10 - 65 U/L | EXTERNAL | | | | | | LAB | | + + + + + -+ | Estimated | 41 (L)Comment: GFR <60: | mL/min/1.73m2 | EXTERNAL | | | GFR | CHRONIC KIDNEY DISEASE, | | LAB | | | | IF FOUND OVER A 3 MONTH | | | | | | PERIOD.GFR <15: KIDNEY | | | | | | FAILURE.FOR | | | | | | AMERICANS, MULTIPLY THE | | | | | | CALCULATED GFR BY 1.210. | | | | | | | [...] + + + -+ | aPTT, | 24 | 23 - 32 seconds | EXTERNAL | | | Patient | | | LAB | | + + + + + -+ | CK, Total | 160 | 55 - 400 U/L | EXTERNAL | | | | | | LAB | | + + + + + -+ | CK-MB | 2.5 | 0.5 - 3.6 ng/mL | EXTERNAL [...] + + + + + -+ | Troponin I, | <0.020Comment: 0.00 to [...] | | | | | | ACUTE PR Testing | | | | | | performed at [facility];[address] | | | | [address];[place], [place] | | | | | | [id number] | | | | + + + [...] + | Diagnosis | + + | Elevated blood pressure Elevated blood pressure reading without diagnosis of | | hypertension | + + | Cerebrovascular accident (CVA), unspecified mechanism (HCC) | + + | Numbness and tingling of right leg Disturbance of skin sensation | + + | Type 2 diabetes mellitus without complication, with long-term current use of insulin | | (HCC) | + + | 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
--- OUTSIDE RECORDS SUMMARY | ~2019-09-09 | XMS | Encounter Summary ---
Demographics + + + | Address | [address] | | | [place] [address] | + + + | Home Phone | | + + + | Preferred Language | Unknown | + + + | Marital Status | | + + + | Anabaptism Affiliation | [id number] | + + + | Race | Unknown | + + + | Ethnic Group | Unknown | + + + Author + + + | Author | Located Within [facility] | | | and [place] | + + + | Organization | Located Within [facility] | | | and [place] | + + + | Address | Unknown | + + + | Phone | Unavailable | + + + Support + + + + + | Name | Relationship | Address | Phone | + + + + + | Sammi Kohler | ECON | [place] [address] | | + + + + + Care Team Providers + +------+ + | Care Philosophy Faculty Name | Role | Phone | + +------+ + | Holly Pack NP | PCP | | + +------+ + Reason for Visit + + + | Reason | Comments | + + + | Chest Pain | | + + + Encounter Details +--------+ + + + + | Date | Type | Department | Care Team | Description | +--------+ + + + + | 08/05/ | Emergency | [facility] | Ana [place], | Other insomnia | | 2019 | | MEDICAL CENTER | PA-C [address] | (Primary Dx); Atrial | | | | EMERGENCY CENTER | [address] [place] [place] | fibrillation, | | | | [address] | [address] | unspecified type | | | | [place], [place] | [phone] | (HCC); | | | | [address] | | Hyperglycemia; | | | | [phone] | Zach Garnica DO | Essential | | | | | [address] | hypertension | | | | | [place], [place] | | | | | | [address] | | | | | | [phone] | | | | | | | [...] + + + | Blood Pressure | 174/77 | 08/06/2019 6:06 AM | | | | | PDT | | + + + + + | Pulse | 73 | 08/06/2019 6:06 AM | | | | | PDT | | + + + + + | Temperature | 36.7 C (98 F) | 08/06/2019 6:06 AM | | | | | PDT | | + + + + + | Respiratory Rate | 18 | 08/06/2019 6:06 AM | | | | | PDT | | + + + + + | Oxygen Saturation | 95% | 08/06/2019 6:06 AM | | | | | PDT | | + + + + + | Inhaled Oxygen | - | - | | | Concentration | | | | + + + + + | Weight | 100.8 kg (222 lb 3.6 | 08/06/2019 3:34 AM | | | | oz) | PDT | | + + + + + | Height | - | - | | + + + + + | Body Mass Index | 30.99 | 07/23/2019 11:55 PM | | | [...] as of this encounter Discharge Instructions Instructions Ana Victoria PA-C - 08/06/2019Continue all your current medications as befor e AttachmentsThe following attachments cannot be sent through Care Everywhere.Atrial Fibrilla tion, Discharge Instructions for (Somali)documented in this encounter Medications at Time of [...] | | | | use of insulin ([facility]) | | | | | | + [...] | | | | use of insulin ([facility]) | | | | | | + [...] + + | warfarin | Take 1 tablet by | 14 | 0 | 07/31/19 | | | (COUMADIN) 5 mg | mouth nightly Short | tablet | | 20 | 0 | | tabletIndications: | term rx until | | | | | | Chronic a-fib (HCC) | establishes with | | | | | | | coumadin clinic. | | | | | | | Send refill requests | | | | | | | to [facility] coumadin | | | | | | | clinic. | | | | | + + + +---------+ + + documented as of this encounter ED Notes Flaco Strange RN - 08/06/2019 6:04 AM PDTCalled dial a ride for pt, they state they wi ll have someone at the [facility] lobby to pick him up in 10-15 min. Ana Zuñiga PA-C - 08/06/2019 3:39 AM PDTFor matting of this note might be different from the original. [facility] Department of Emergency Medicine No flowsheet data found. History of Present Illness Patient Identification Jania is a 63 y.o. male. Patient information was obtained from: patient. History/Exam limitations: none. Patient presented to the Emergency Department by: ambulance Chief Complaint Chief Complaint Patient presents with Chest Pain Patient presents to the ED with INSOMNIA "from my Afib. Heart keeps skipping beats and I c ant go to sleep" CHEST PAIN 02/15 center of his chest with skipping beats. Chest pain is dull ache. There i s no radiation of pain no shortness of breath no fatigue Onset: 11:30pm last night History of chronic atrial fib and continues taking his Coumadin. He was recently admitted to this facility pneumonia hypertension and atrial fib Past Medical History: Diagnosis Date Acute pulmonary embolism (HCC) 10/14/2017 Anxiety ARF (acute renal failure) ([facility]) 03/02/2013 Atrial fibrillation (HCC) Basal cell carcinoma 09/26/2012 arm and back COPD (chronic obstructive pulmonary disease) ([facility]) 03/02/2013 hypoxemia on 2 lts nc Depression Development delay Diabetes mellitus type II DVT (deep venous thrombosis) ([facility]) 03/29/2018 Facial droop 07/08/2013 GIB (gastrointestinal bleeding) 03/02/[address] Nur, rectal ulcers, nodule of GE junction Hypercholesterolemia 07/08/2013 Hyperlipidemia Hypertension MCC (current) use of 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 Obesity, Class I, BMI 30-34.9 07/08/2013 WARD (obstructive sleep apnea) 08/11/2012 does not use CPAP because of the noise Other chronic pain Renal failure Stroke (HCC) TIA (transient ischemic attack) Unspecified visual disturbance reading glasses Past Surgical History: Procedure Laterality Date ABDOMEN SURGERY CHOLECYSTECTOMY CHOLECYSTECTOMY, LAPAROSCOPIC 09/12/2012 Procedure: LAPAROSCOPIC - CHOLECYSTECTOMY; Surgeon: Jevon Vargas DO; Location: [facility] MAIN OR; Service: General; 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; COLONOSCOPY COLONOSCOPY 03/04/2013 Procedure: COLONOSCOPY; Surgeon: Howie Gibson MD; Location: [facility] ENDOSCOPY; Service: Gastroen terology; 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; HERNIA REPAIR 07/03/2013 Procedure: LAPAROSCOPIC - HERNIA - INCISIONAL; Surgeon: Jevon Vargas DO; Location: [facility] MAIN OR; Service: General; 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; KNEE SURGERY rt knee, patella LEG SURGERY LLE OTHER SURGICAL HISTORY UNLISTED PROCEDURE ARTHROSCOPY OTHER SURGICAL HISTORY Left 05/05/2014 SKIN LESION EXCISION - Procedure: EXCISION - LESION - FROZEN SECTION; Surgeon: Sy murcia MD; Location: [facility] MAIN OR; Service: Plastics; Laterality: Left; forearm SKIN BIOPSY SKIN CANCER EXCISION Left 10/10/2012 Procedure: EXCISION - SKIN CANCER; Surgeon: Sy Fierro MD; Location: [facility] MAIN OR; Service: Plastics; Laterality: Left; upper arm and upper back w/frozen section UPPER GASTROINTESTINAL ENDOSCOPY UPPER GASTROINTESTINAL ENDOSCOPY 03/03/2013 Procedure: ESOPHAGOGASTRODUODENOSCOPY; Surgeon: Howie Gibson MD; Location: [facility] ENDOSCOPY; Se rvice: Gastroenterology; 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; BUTTON SPINDLER Home Medications Medication Sig ARIPiprazole (ABILIFY) 5 mg tablet Take 1 tablet by mouth Daily. atorvaSTATin (LIPITOR) 40 mg tablet Take 1 tablet by mouth nightly. Blood Glucose Monitoring Suppl (BLOOD GLUCOSE MONITOR SYSTEM) w/Device KIT Dispense bra nd per patient preference Blood Pressure KIT Dispense as insurance allows to check Blood Pressure one time daily each day. budesonide-formoterol (SYMBICORT) 160-4.5 mcg/puff inhaler Inhale 2 puffs into the lung s 2 times daily. (Patient not taking: Reported on 07/03/2019) docusate-senna (SENOKOT-S) 50-8.6 mg per tablet Take 2 tablets by mouth 2 times daily Glucose Blood (BLOOD GLUCOSE TEST STRIPS) STRP For blood sugar testing 4 times daily hydrALAZINE (APRESOLINE) 25 mg tablet Take 1 tablet by mouth Twice daily as needed (in addition to scheduled. for bp > 170/80). insulin detemir (LEVEMIR FLEXTOUCH) 100 units/mL injection (pen) Inject 45 Units under the skin nightly. insulin lispro (HUMALOG KWIKPEN) 100 units/mL injection (pen) Inject 20 Units under the skin 3 times daily (with meals). Insulin Pen [...] Take 1 tablet (50 mg total) by mout h 2 times daily NIFEdipine (ADALAT CC) 60 MG 24 hr tablet Take 1 tablet by mouth Daily. warfarin (COUMADIN) 5 mg tablet Take 1 tablet by mouth nightly Short term rx until esta blishes with coumadin clinic. Send refill requests to [facility] coumadin clinic. Allergies Allergen Reactions Nitroglycerin Swelling Tongue swelling [...] Lives alone x 1 wk, [facility] [place], , 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 2 falls in [...] throat Neck: Negative for: Neck pain Cardiovascular/Respiratory: Negative for: shortness of breath, cough Positive for: chest pain Gastrointestinal: Negative for: abdominal pain, vomiting, diarrhea Genitourinary: Negative for: dysuria Musculoskeletal: Negative for: myalgias and arthralgias Skin: Negative for: rashes Neuro and psych: Negative for: headache, syncope, numbness or tingling Positive for: insomnia Endocrine/Heme/Lymph: Negative for: swollen lymph nodes Physical Exam Temp: 36.9 C (98.5 F) Pulse: 72 Resp: 16 BP: 196/86 SpO2: 95 % Pulse Oximetry interpretation: Normal Elevated BP 196/86 Physical Exam General: Alert, in no apparent distress sitting up speaks in full sentences moves all extre mities spontaneously Eyes: Conjunctiva clear, non-icteric, no palor ENT: Nose no purulent drainage Pharynx no erythema, no exudate, no edema Neck: Normal inspection Supple Cardiovascular: Rate is irregular egular Respiratory: Breath sounds clear bilaterally Abdomen: Soft, non-tender, non-distended, bowel sounds normal No guarding or rebound Back: No CVA tenderness Skin: Color normal, no pallor, no jaundice, no cyanosis, no diaphoresis Warm and dry No rashes Neuro: No motor deficit No sensory deficit Normal gait Medical Decision Making and Emergency Department Course Care initiated 0340 orders-patient with a history of diabetes type 2 his hypertension presents 6 months at [facility] of hyper lipidemia hypertension presents with insomnia due to his atrial fibrillation and dual chest pain 02/15. He appears in no distress. I will check EKG CBC CMP troponin d- dimer and reevaluate. EKG cleared by Dr Garnica sinus rhythm with PACs, heart rate 82, no STEMI 0445 CBC is normal CMP is normal except low potassium 3.4, elevated glucose 295 elevated alk phos 143 Troponin is normal INR is 0.9 He is currently sleeping heart rate 65, atrial fib 0500 Temp: 36.7 C (98 F) Pulse: 73 Resp: 18 BP: 174/77 SpO2: 95 % 0530 recheck he has been sleeping, heart rate 65, no longer has chest pain he is feeling be tter and he feels that he can go home and sleep I have discussed all his findings he should continue all his previous medications as before discussed signs and symptoms that would yovany ant return. rec f/u with pcp or return here if worsen. Patient voices understanding of all instructions and agree on treatment plan. 0607 Temp: 36.7 C (98 F) Pulse: 73 Resp: 18 BP: 174/77 SpO2: 95 % Records Reviewed Old medical records. Previous electrocardiograms. Nursing notes. Previous radiology studies. Laboratory Evaluation Labs Reviewed CBC WITH DIFFERENTIAL - Abnormal; Notable for the following components: Result Value MCH 26.7 (*) Absolute Monocytes 0.95 (*) All other components within normal limits COMPREHENSIVE METABOLIC PANEL - Abnormal; Notable for the following components: K 3.4 (*) Glucose 295 (*) ALK PHOS 143 (*) All other components within normal limits TROPONIN I PROTIME INR Radiology and EKG Evaluation Recent Results (from the past 360 hour(s)) XR Chest AP Portable Narrative CHEST PORTABLE ONE VIEW CLINICAL INFORMATION: Heart palpitations COMPARISON: CT ANGIOGRAM PULMONARY W CONTRAST (07/03/2019); XR CHEST AP PORTABLE (05/15/2019); FINDINGS: Heart, lungs and vessels normal. No pneumothorax, pleural effusion or adenopathy. No significant bone abnormality. Impression Negative chest. Signed by: Irina Arrington Irene Sign Date/Time: 07/23/2019 5:[address] Head wo Contrast Narrative CT HEAD WITHOUT CONTRAST CLINICAL INFORMATION: Headaches and dizziness, Ataxia, stroke suspected COMPARISON: CT HEAD WO CONTRAST (05/16/2019); CT HEAD WO CONTRAST (01/25/2019); MRI ANGIOGRAM HEAD WO CONTRAST (01/04/2019); PROCEDURE: Axial images [...] mucosal thickening of the right side. Mild mucosal thickening is demonstrated of the bilateral ethmoid sinuses. There is minimal mucosal thickening of the right maxillary sinus. Debris is seen along the left external auditory canal. Calvarium and extracranial soft tissues: Normal. Orbits: Imaged portions of the orbits are normal. Impression 1. No acute intracranial process. 2. Nonobstructive pattern sinonasal disease. Signed by: Irina Ji Richard Sign Date/Time: 07/23/2019 6:[address] Abdomen Pelvis w Contrast Narrative CT ABDOMEN AND PELVIS WITH CONTRAST CLINICAL INFORMATION: Abdominal pain and constipation COMPARISON: CT ANGIOGRAM PULMONARY W CONTRAST (07/03/2019); CT ABDOMEN PELVIS W CONTRAST (02/25/2016); CT ABDOMEN PELVIS WO CONTRAST (04/28/2014); PROCEDURE: Axial images through the abdomen and pelvis after the administration of 100 ml omnipaque 350 intravenous contrast. Multiplanar reconstructions. At least one of the following CT dose optimization techniques were used: Automated exposure control; Adjustment of mA and/or kV according to patient size; Use of iterative reconstruction technique. FINDINGS: LUNG BASES: Ground-glass opacities in right lower lobe are new compared to 07/03/2019. No pleural effusion or pneumothorax. ABDOMEN Liver and Biliary: No biliary abnormality. No significant liver abnormality. Post cholecystectomy. Pancreas, Spleen and Adrenals: No pancreatitis or pancreatic mass. No splenomegaly or splenic hemorrhage. Stable small splenic hypodensity. No significant adrenal abnormality. Kidneys: No hydronephrosis, calculus or solid renal mass. ABDOMEN AND PELVIS Bowel: No small bowel or colonic dilation or adjacent inflammation. No appendiceal dilation or inflammation. Vessels: No significant abnormality in the aorta or its proximal branches. No significant abnormality in the portal veins, mesenteric veins or systemic veins. Lymph Nodes: No adenopathy. Peritoneum and Retroperitoneum: No ascites or free air. No significant retroperitoneal abnormality. PELVIS Genitourinary: Distal ureters and bladder appear normal. No pelvic masses. BODY WALL Soft Tissues: No bowel or inflamed fat containing hernia, mass or hemorrhage. Bones: No acute fracture or vertebral end plate destruction. Old healed fracture of right inferior pubic ramus. No lytic or blastic lesion. Impression 1. New ground-glass opacities in right lower lobe. Differential diagnosis includes aspiration, viral pneumonia, and bacterial pneumonia. 2. No acute findings within the abdomen or pelvis. Signed by: Irina Arrington Irene Sign Date/Time: 07/23/2019 6:44 PM XR Chest PA and Lateral Narrative CHEST PA AND LATERAL CLINICAL INFORMATION: Chest pain. COMPARISON: XR CHEST AP PORTABLE (07/23/2019); CT ANGIOGRAM PULMONARY W CONTRAST (07/03/2019); XR CHEST AP PORTABLE (07/03/2019); FINDINGS: Heart, lungs and vessels normal. No pneumothorax, pleural effusion or adenopathy. No significant bone abnormality. Impression Negative chest. Signed by: Irina Taylor, Malia Sign Date/Time: 08/06/2019 4:24 AM Clinical Impression ICD-10-CM ICD-9-CM 1. Other insomnia G47.09 780.52 2. Atrial fibrillation, unspecified type (HCC) I48.91 427.31 3. Hyperglycemia R73.9 790.29 4. Essential hypertension I10 401.9 Disposition: Follow-up Information Holly Pack NP. Specialty: Nurse Practitioner - Gerontology Why: As needed, If symptoms worsen Contact information: [address] [place] [address] [facility] [address] [facility]. Specialty: Emergency Medicine Why: As needed, If symptoms worsen Contact information: [address] [facility] [phone] JULISSA Ye PA-C 08/06/19 0608 Associated attestation - Zach Garnica DO - 08/06/2019 6:15 AM PDTI was available for di rect supervision of the MLP as needed, please see their note for details.' Kristen Smyth RN - 08/06/2019 3:32 AM PDTBed: ED19 Expected date: Expected time: Means of arrival: Comments: 1722 doc umented in this encounter Plan of Treatment +--------+---------+ + + + | Date | Type | Specialty | Care Team | Description | +--------+---------+ + + + | 09/10/ | Office | Geriatric Medicine | Holly Pack, | | | 2019 | Visit | | EMERGENCY COMMUNICATIONS OFFICER [address] | | | | | | [address] [place], | | | | | | [place] [address] | | | | | | [phone] | | | | | | | | +--------+---------+ + + + | 09/29/ | Office | Urology | Holly Pack, | | | 2019 | Visit | | EMERGENCY COMMUNICATIONS OFFICER [address] | | | | | | [address] [place], | | | | | | [place] [address] | | | | | | [phone] | | | | | | | | | | | | Toy Wild, DO | | | | | | [address] | | | | | | [place] [address] | | | | | | [phone] | | | | | | | | +--------+---------+ + + + + +------+--------+ + + | Name | Type | Priori | Associated Diagnoses | Date/Time | | | | ty | | | + +------+--------+ + + | ED INFORMATION | COLTON | Routin | | 08/06/2019 3:28 AM | | EXCHANGE | | e [...] | | n - | | | 08/05/ | | | 2019 | | | [...] M?MRN: | | | | | | [id number] | | | [id number] | | | riteri | | | [...] | | | St. | | | [place] | | | y | | | [...] | | | St. | | | [place] | | | y H. | | | [place] | | | [place] | | | Emerge | | | ncy | | | Chief | | | Compla | | | int: | | | MULTIP | | | LE | | | COMPLA | | | INTS | | | [place] [address], | | | 2020 | | [...] | | | St. | | | [place] | | | y H. | | [...] | | | [place] | | | [employer] | | | al | | | [...] | | | [place] | | | [employer] | | | al | | | [...] | | | [place], | | | EMERGENCY COMMUNICATIONS OFFICER | | | Nurse | | | [...] | +---+--------+ documented in this encounter Results XR Chest PA and Lateral (08/06/2019 4:20 AM PDT) + + | Specimen | + + | | + + + + + | Impressions | Performed At | + + + | Negative chest. Signed by: Irina Taylor, Malia Pina | [facility] | | Date/Time: 08/06/2019 [...] + | Richard, Rad Results In - 08/06/2019 4:28 AM PDT | | CHEST [...] + +---------+ + + ECG 12 lead (08/06/2019 3:53 AM PDT) + + + + + + | Component | Value | Ref Range | Performed | Pathologist | | | | | At | Signature | + + + + + + | VENTRICULAR | 82 | BPM | [facility] | | | RATE EKG | | | | | + + + + + + | ATRIAL RATE | 82 | BPM | [facility] | | + + + + + + | P-R | 172 | ms | [facility] | | | INTERVAL | | | | | + + + + + + | QRS | 84 | ms | [facility] | | | DURATION | | | | | + + + + + + | Q-T | 442 | ms | [facility] | | | INTERVAL | | | | | + + + + + + | Q-T | 516 | ms | [facility] | | | INTERVAL | | | | | | (CORRECTED) | | | | | + + + + + + | P WAVE AXIS | 39 | degrees | [facility] | | [...] | | | | | | complexes with Aberrant | | | | | | conductionMinimal | | | | | | voltage criteria for | | | | | | LVH, may be normal | | | | | | variantNonspecific T | | | | | | wave | | | | | | abnormalityProlonged | | | | | | QTAbnormal ECGWhen | | | | | | compared with ECG of | | | | | | 25-JUL-2019 09:27,Sinus | | | | | | rhythm has replaced | | | | | | Atrial fibrillationThis | | | | | | ECG contains Unconfirmed | | | | | | Interpretation | | | | | | Statements. See ED | | | | | | Record for Physician | | | | | | Interpretation. | | | | | | Confirmed by MUSE READ | | | | | | ONLY, -COMPUTER ([id number]), | | | | | | copy editor LADONNA SCHOFIELD | | | | | | ([id number]) on 08/07/2019 | | | | | | 2:32:38 AM | | | | + + [...] | | | + +---------+ + + Hayime INR (08/06/2019 3:46 AM PDT) + + + + + + | Component | Value | Ref Range | Performed | Pathologist | | | | | At | Signature | + + + + + + | INR | 0.9Comment: REFERENCE | | KR | | | | RANGE:0.9 - 1.2 [...] | | | | | | [address];[place], [place] | | | | | | [address] | | | | + + + + + + + + | Specimen | + + | Blood | + + + + + + + | Performing | Address | City/State/Zipcode | Phone Number | | Organization | | | | + + + + + | [facility] | [address] | [place] [address] | [phone] | + + + + + Troponin I (08/06/2019 3:46 AM PDT) + + + + + + | Component | Value | Ref Range | Performed | Pathologist | | | | | At | Signature | + + + + + + | Troponin I | 0.016Comment: 0.04 | 0.00 - 0.04 | [facility] | | | | ng/mL or less [...] at | | | | | | [facility];[address] [facility] | | | | | | [facility];[place] [address] | | | | + + + + + + + + | Specimen | + + | Blood | + + + + + + + | Performing | Address | City/State/Zipcode | Phone Number | | Organization | | | | + + + + + | [facility] | [address] | [place] [address] | [phone] | + + + + + Comprehensive Metabolic Panel (08/06/2019 3:46 AM PDT) + + + + + [...] + + + + | CO2 | 23 | 23 - 32 mmol/L | [facility] | | | | | | LABORATORY | | + + + + + + | Anion Gap | 14 | 5 - 20 mmol/L | [facility] | | | | | | LABORATORY | | + + + + + + | Glucose | 295 (H) | 65 - 99 mg/dL | [...] + + + + | Protein, | 6.6 | 6.3 - 8.2 g/dL | [facility] [...] + + + | ALK PHOS | 143 (H) | 35 - 115 U/L | [facility] | | | | | | LABORATORY | | + + + + + + | AST | 23 | 10 - 45 U/L | [facility] | | | | | | LABORATORY | | + + + + + + | ALT | 16 | 10 - 65 U/L | [facility] | | | | | | LABORATORY | | + + + + + + | Estimated | >60Comment: GFR <60: | >60 | [facility] | | | GFR | CHRONIC [...] | performed at [facility];[address] | | | | | | [facility];[place], [place] | | | | | | [address] | | | | + + + + + + + + | Specimen | + + | Blood | + + + + + + + | Performing | Address | City/State/Zipcode | Phone Number | | Organization | | | | + + + + + | [facility] | [address] | [place] [address] | [phone] | + + + + + CBC with Differential (08/06/2019 3:46 AM PDT) + + + + + + | Component | Value | Ref Range | Performed | Pathologist | | | | | At | Signature | + + + + + + | WBC | 10.42 | 3.80 - 11.00 | [facility] | | | | | K/uL | LABORATORY | | + + + + + + | Red Blood | 5.17 | 4.20 - 5.70 | [facility] | | | Cells | | M/uL | LABORATORY | | + + + + + + | Hemoglobin | 13.8 | 13.2 - 17.0 | [facility] | [...] + + + | MCH | 26.7 (L) | 27.0 - 34.0 pg | [facility] | | | | | | LABORATORY | | + + + + + + | MCHC | 32.2 | 32.0 - 35.5 | [facility] | | | | | g/dL | LABORATORY | | + + + + + + | RDW-SD | 39.7 | 37 - 53 fl | [facility] | | | | | | LABORATORY | | + + + + + + | Platelet | 280 | 150 - 400 K/uL | [facility] | | | Count | | | LABORATORY | | + + + + + + | MPV | 9.6Comment: NO NORMAL | fl | [facility] | [...] + + + + | % | 50.20 | % | [facility] | | | Neutrophils | | | LABORATORY | | + + + + + + | IMMATURE | 0.30 | % | [facility] | | | GRANULOCYTE | | | LABORATORY | | + + + + + + | % | 36.20 | % | [facility] | | | Lymphocytes | | | LABORATORY | | + + + + + + | Monocyte % | 9.10 | % | [facility] | | | | | | LABORATORY | | + + + + + + | Eosinophils | 3.90 | % | [facility] | | | % | | | LABORATORY | | + + + + + + | Basophils % | 0.30 | % | [facility] | | | | | | LABORATORY | | + + + + + + | Neutrophils | 5.23 | 1.90 - 7.40 | [facility] | | | , Absolute | | K/uL | LABORATORY | | + + + + + + | IMMATURE | 0.03Comment: NOTE NEW | 0.00 - 0.07 | [facility] | | | GRANS AB | REFERENCE RANGE | K/uL | LABORATORY | | + + + + + + | Absolute | 3.77 | 1.00 - 3.90 | [facility] | | | Lymphocytes | | K/uL | LABORATORY | | + + + + + + | Absolute | 0.95 (H) | 0.00 - 0.80 | [facility] | | | Monocytes | | K/uL | LABORATORY | | + + + + + + | Eosinophils | 0.41 | 0.00 - 0.50 | [facility] | | | , Absolute | | K/uL | LABORATORY | | + + + + + + | Basophils, | 0.03Comment: Testing | 0.00 - 0.10 | [facility] | | | Absolute | performed at [facility];[address] | K/uL | LABORATORY | | | | [address];[place] | | | | | | [address] | | | | + + + + + + + + | Specimen | + + | Blood | + + + + + + + | Performing | Address | City/State/Zipcode | Phone Number | | Organization | | | | + + + + + | [facility] | [address] | [place] [address] | [phone] | + + + + + documented in this encounter Visit Diagnoses + + | Diagnosis | + + | Other insomnia - Primary | + + | Atrial fibrillation, unspecified type (HCC) | + + | Hyperglycemia Other abnormal glucose | + + | Essential hypertension Unspecified essential hypertension | + + documented in this encounter
--- OUTSIDE RECORDS SUMMARY | ~2019-09-09 | XMS | Encounter Summary ---
Demographics + + + | Address | [address] | | | [place] [address] | + + + | Home Phone | | + + + | Preferred Language | Unknown | + + + | Marital Status | | + + + | Church Affiliation | 1027 | + + + | Race | Unknown | + + + | Ethnic Group | Unknown | + + + Author + + + | Author | [facility] | | | and [place] | + + + | Organization | [facility] | | | and [place] | + + + | Address | Unknown | + + + | Phone | Unavailable | + + + Support + + + + + | Name | Relationship | Address | Phone | + + + + + | Sammi Kohler | ECON | [place] [address] | | + + + + + Care Team Providers + +------+ + | Care Workforce Management Manager Name | Role | Phone | + +------+ + | Mik Diego DO | PCP | | + +------+ + Encounter Details +--------+ + + + + | Date | Type | Department | Care Team | Description | +--------+ + + + + | 04/01/ | Orders Only | [facility] | Sy Fierro, | | | 2014 | | PLASTIC SURGERY AND | [address] | | | | | DERMATOLOG[address] [place], | | | | | [address] | [place] [address] | | | | | [place] | [phone] | | | | | [address] | | | | | | [phone] | | | +--------+ + + + [...] Fran Khoury MA Service: (none) Author Type: Department Store Salesperson Filed: 03/31/1416 Encounter Date: 03/31/2014 Status: Signed Tuckpointer Cleaner Caulker: Fran Khoury MA (Department Store Salesperson) Addended by: FRAN KHOURY on: 03/31/2014 09:16 AM Modules accepted: Orders Sy Oneill MD - 03/31/2014 8:45 AM PSTFormatting of this note might be different from th e original. Progress Notes by Sy Fierro MD at 03/31/14 0845 Author: Sy Fierro MD Service: (none) Author Type: Physician Filed: 03/31/14 0907 Encounter Date: 03/31/2014 Status: Signed Tuckpointer Cleaner Caulker: Sy Fierro MD (Physician) HPI This patient [...] some cognitive developmental delay. Skin: Warm, dry [place] ulcerated lesion on the left radial forearm. [...] | | 2019 | Visit | | [facility] [address] | | | | | | [address] [place], | | | | | | [place] [address] | | | | | | [phone] | | | | | | | | +--------+---------+ + + + | 08/24/ | Office | Urology | Mireya Pack, | | | 2019 | Visit | | [address] | | | | | | [address] [place], | | | | | | [place] [address] | | | | | | [phone] | | | | | | | | | | | | Toy Wild W, DO | | | | | | [address] | | | | | | [place] [address] | | | | | | [phone] | | | | | | | [...] interpretation and technical preparation was performed by [facility] | | | [facility], [address], | | | [place] [address] (Casino Gaming Inspector: Jose Pierre M.D.; IA#: | | | [id number]). Diagnostician: Jose Pierre MD Pathologist | | [...]
--- OUTSIDE RECORDS SUMMARY | ~2019-09-09 | XMS | Encounter Summary ---
Demographics + + + | Address | [address] | | | [place] [address] | + + + | Home Phone [...] | Author | [facility] | | | and [place] | + + + | Organization | [facility] | | | and [place] | + + + | Address | Unknown | + + + | Phone | Unavailable | + + + Support + + + + + | Name | Relationship | Address | Phone | + + + + + | Sammi Kohler | ECON | [place] [address] | | + + + + + Care Team Providers + +------+ + | Care Rnfa Name | Role | Phone | + +------+ + | Mireya Pack NP | PCP | | + +------+ + Reason for Visit +--------+--------+ + | Reason | Onset | Comments | | | Date | | +--------+--------+ + | Other | 07/29/ | Phone number clarification | | | 2020 | | +--------+--------+ + Encounter Details +--------+ + + + + | Date | Type | Department | Care Team | Description | +--------+ + + + + | 07/29/ | Telephone | [facility] | Sanjuanita Rodriguez RN | Other (Phone number | | 2020 | | PRICE ACCURACY SUPERVISOR | | clarification) | | | | [address] | | | | | [address] | | | | | | [place] | | | | | | [address] | | | | | | [phone] | | | +--------+ + + + [...] this encounter Miscellaneous Notes Telephone Encounter - Fanny Ramos, Materials Intern - 07/31/2019 8:34 AM PDTPhone number in patient's chart is . Will confirm with patient when he comes in for appointment if this is the correct number, FOAs also confirm this info when checking the pa tient in. Will update this information as needed. elephone Encounter - Sanjuanita Rodriguez, RN - 0 07/30/2019 11:17 AM PDTIncoming call received from a woman saying she had received several ph one calls/messages for Kevyn and that we have the wrong phone number. I provided the number listed on the chart [phone] and she states that is the number she is calling from and t here is no Kevyn at that number. Will send to primary care provider office to follow up at his appointment tomorrow to be haynes re we have the correct number added to chart. documented in this encounter Plan of Treatment +--------+---------+ + + + | Date | Type | Specialty | Care Team | Description | +--------+---------+ + + + | 09/10/ | Office | Geriatric Medicine | Mireya Pack, | | 2019 | Visit | | BANKRUPTCY JUDGE [address] | | | | | | [address] [place], | | | | | | [place] [address] | | | | | | [phone] | | | | | | | | +--------+---------+ + + + | 09/29/ | Office | Urology | Mireya Pack, | | | 2019 | Visit | | BANKRUPTCY JUDGE [address] | | | | | | [address] [place], | | | | | | [place] [address] | | | | | | [phone] | | | | | | | | | | | | Toy Wild, DO | | | | | | [address] | | | | | | [place] [address] | | | | | | [phone] | | | | | | | | +--------+---------+ + + + documented as of this encounter Visit Diagnoses Not on filedocumented in this encounter"
--- OUTSIDE RECORDS SUMMARY | ~2019-09-09 | XMS | Encounter Summary ---
Demographics + + + | Address | [address] | | | [place] [address] | + + + | Home Phone | | + + + | Preferred Language | Unknown | + + + | Marital Status | | + + + | Yazidi Affiliation | 1027 | + + + | Race | Unknown | + + + | Ethnic Group | Unknown | + + + Author + + + | Author | [facility] | | | and [place] | + + + | Organization | [facility] | | | and [place] | + + + | Address | Unknown | + + + | Phone | Unavailable | + + + Support + + + + + | Name | Relationship | Address | Phone | + + + + + | Sammi Kohler | ECON | [place] [address] | | + + + + + Care Team Providers + +------+ + | Care Branch Operations Specialist Name | Role | Phone | + +------+ + | Mireya Pack NP | PCP | | + +------+ + Reason for Visit + +--------+ + | Reason | Onset | Comments | | | Date | | + +--------+ + | Lab Results | 03/28/ | | | | 2020 | | + +--------+ + Encounter Details +--------+ + + + + | Date | Type | Department | Care Team | Description | +--------+ + + + + | 03/28/ | Telephone | [facility] | Mireya Pack, | Lab Results | | 2019 | | [facility] [address] | EDITORIAL CARTOONIST [address] | | | | | [address] | [address] [place], | | | | | [place], [place] | [place] [address] | | | | | [address] | [phone] | | | | | [phone] | | | +--------+ + + + [...] this encounter Miscellaneous Notes Telephone Encounter - Debo Bennett, Psychiatric Security Nurse - 03/29/2019 7:51 AM PSTPat ient given his results and he states he understands. elephone Encounter - Jaelyn Bennett, Psychiatric Security Nurse - 03/29/2019 6:46 AM PSTNotes recorded by Mireya Pack NP on at 11:55 AM PST Please let patient know that lab work received and within expected range. Diabetic control is not at goal (a1c 9.1 and desired < 8.0) but it is improved from last A1c check 5 months a go Patient has appt next week to discuss as well elephone Encounter - Mel Morton Medica l Weapons Specialist - 03/28/2019 10:52 AM PSTLabs have not been resulted yet. Will contact patient o nce PCP has reviewed and resulted. elephone Encounter - Heidi Moody - 03/28/2019 10:45 AM P STPatient got blood work done yesterday and wanted to get the results. Please call him at [phone] Heidi Moody documented in this enco unter Plan of Treatment +--------+---------+ + + + | Date | Type | Specialty | Care Team | Description | +--------+---------+ + + + | 09/10/ | Office | Geriatric Medicine | Mireya Pack, | | | 2019 | Visit | | EDITORIAL CARTOONIST [address] | | | | | | [address] [place], | | | | | | [place] [address] | | | | | | [phone] | | | | | | | | +--------+---------+ + + + | 09/29/ | Office | Urology | Mireya Pack, | | | 2019 | Visit | | EDITORIAL CARTOONIST [address] | | | | | | [address] [place], | | | | | | [place] [address] | | | | | | [phone] | | | | | | | | | | | | Toy Wild, | | | | | | [address] | | | | | | [place] [address] | | | | | | [phone] | | | | | | | | +--------+---------+ + + + documented as of this encounter Visit Diagnoses Not on filedocumented in this encounter"
--- OUTSIDE RECORDS SUMMARY | ~2019-09-09 | XMS | Encounter Summary ---
Demographics + + + | Address | [address] | | | [place] [address] | + + + | Home Phone | | + + + | Preferred Language | Unknown | + + + | Marital Status | | + + + | Scientologist Affiliation | 1027 | + + + | Race | Unknown | + + + | Ethnic Group | Unknown | + + + Author + + + | Author | [facility] | | | and [place] | + + + | Organization | [facility] | | | and [place] | + + + | Address | Unknown | + + + | Phone | Unavailable | + + + Support + + + + + | Name | Relationship | Address | Phone | + + + + + | Sammi Kohler | ECON | [place] [address] | | + + + + + Care Team Providers + +------+ + | Care Mail Officer Name | Role | Phone | + +------+ + PCP | Unavailable | + +------+ + Encounter Details +--------+ + + + + | Date | Type | Department | Care Team | Description | +--------+ + + + + | 09/30/ | Orders Only | [facility] | Conversion | | | 2018 | | [facility] | Transaction, | | | | | CARE [address] | Provider Unknown | | | | | [address] [place] | | | | | | [address] | (Fax) | | | | | [phone] | | | +--------+ + + + [...] | | 2019 | Visit | | [facility] [address] | | | | | | [address] [place], | | | | | | [place] [address] | | | | | | [phone] | | | | | | | | +--------+---------+ + + + | 09/29/ | Office | Urology | Mireya Pack, | | | 2019 | Visit | | [facility] [address] | | | | | | [address] [place], | | | | | | [place] [address] | | | | | | [phone] | | | | | | | | | | | | Toy Wild, DO | | | | | | [address] | | | | | | [place] [address] | | | | | | [phone] | | | | | | | | +--------+---------+ + + + documented as of this encounter Procedures + +--------+ + + + | Procedure Name | Priori | Date/Time | Associated Diagnosis | Comments | | | ty | | | | + +--------+ + + + | POC GLUCOSE | Routin | 10/01/2017 | | Results for this | | | e | 6:53 AM | | procedure are in the | | | | PDT | | results section. | + +--------+ + + + | POC GLUCOSE | Routin | 09/30/2017 | | Results for this | | | e | 9:26 PM | | procedure are in the | | | | PDT | | results section. | + +--------+ + + + | POC GLUCOSE | Routin | 09/30/2017 | | Results for this | | | e | 4:14 PM | | procedure are in the | | | | PDT | | results section. | + +--------+ + + + | POC GLUCOSE | Routin | 09/30/2017 | | Results for this | | | e | 11:32 AM | | procedure are in the | | | | PDT | | results section. | + +--------+ + + + documented in this encounter Results POC Glucose (10/01/2017 6:53 AM PDT) + +-------+ + + + | Component | Value | Ref Range | Performed | Pathologist | | | | | At | Signature | + +-------+ + + + | Glucose, | 211 | | EXTERNAL | | | POC | [...] | + +---------+ + + POC Glucose (09/30/2017 9:26 PM PDT) + +-------+ + + + | Component | Value | Ref Range | Performed | Pathologist | | | | | At | Signature | + +-------+ + + + | Glucose, | 234 | | EXTERNAL | | | POC | [...] | + +---------+ + + POC Glucose (09/30/2017 4:14 PM PDT) + +-------+ + + + | Component | Value | Ref Range | Performed | Pathologist | | | | | At | Signature | + +-------+ + + + | Glucose, | 235 | | EXTERNAL | | | POC | [...] | + +---------+ + + POC Glucose (09/30/2017 11:32 AM PDT) + +-------+ + + + | Component | Value | Ref Range | Performed | Pathologist | | | | | At | Signature | + +-------+ + + + | Glucose, | 199 | | EXTERNAL | | | POC | [...]
--- OUTSIDE RECORDS SUMMARY | ~2019-09-09 | XMS | Encounter Summary ---
Demographics + + + | Address | [address] [facility] [address] | | | [place] [address] | + + + | Home Phone | | + + + | Preferred Language | Unknown | + + + | Marital Status | | + + + | Restorationist Affiliation | 1027 | + + + [...] + | Sammi Kohler | ECON | [place] [address] | | + + + + + Care Team Providers + +------+ + | Care Podiatric Medicine Doctor Name | Role | Phone | + +------+ + PCP | Unavailable | + +------+ + Encounter Details +--------+ + + + + | Date | Type | Department | Care Team | Description | +--------+ + + + + | 10/27/ | Emergency | [facility] | Reinaldo Gold | Abdominal pain; | | 2013 | | [facility] | DO Anatoliy Anthony | Constipation; | | | | EMERGENCY CENTER | [place], [place] | Hyperglycemia; | | | | [address] | [address] | Diabetes ([facility]) | | | | [place], [place] | | | | | | [address] | | | | | | [phone] | | | +--------+ + + + [...] ED Notes Conversion Transaction, Provider Unknown - 10/27/2013 11:06 AM PDTFormatting of this note m ight be different from the original. ED Notes by Michelle Palomares RN at 10/27/13 1106 Author: Michelle Palomares RN Service: (none) Author Type: Registered Nurse Filed: 10/27/13 1106 Date of Service: 10/27/13 1106 Status: Signed Correspondence Specialist: Michelle Palomares RN (Registered Nurse) Fingerstick glucose 198 mg/dL Michelle Palomares RN 10/27/13 1106 onver ivana Transaction, Provider Unknown - 10/27/2013 10:44 AM PDT ED Notes by Michelle Palomares RN at 10/27/13 1044 Author: Michelle Palomares RN Service: (none) Author Type: Registered Nurse Filed: 10/27/13 1045 Date of Service: 10/27/13 1044 Status: Signed Correspondence Specialist: Michelle Palomares RN (Registered Nurse) Pt asleep with snoring respirations. [address] Michelle Palomares RN 10/27/13 1045 onver ivana Transaction, Provider Unknown - 10/27/2013 10:28 AM PDT ED Notes by Michelle Palomares RN at 10/27/13 1028 Author: Michelle Palomares RN Service: (none) Author Type: Registered Nurse Filed: 10/27/13 1028 Date of Service: 10/27/13 1028 Status: Signed Correspondence Specialist: Michelle Palomares RN (Registered Nurse) Pt returned from XR Michelle Palomares RN 10/27/13 1028 onver ivana Transaction, Provider Unknown - 10/27/2013 9:52 AM PDT ED Notes by Michelle Palomares RN at 10/27/13951 Author: Michelle Palomares RN Service: (none) Author Type: Registered Nurse Filed: 10/27/13951 Date of Service: 10/27/13951 Status: Signed Correspondence Specialist: Michelle Palomares RN (Registered Nurse) Pt denies pain, refuses pain med at this time Michelle Palomares RN 10/27/13951 orReinaldo castaneda DO - 10/27/2013 9:28 AM PDTFormatting of this note might be different from chetan pugh original. ED Provider Notes by Reinaldo Gold DO at 10/27/13927 Author: Reinaldo Gold DO Service: (none) Author Type: Physician Filed: 10/29/13 0751 Date of Service: 10/27/13927 Status: Signed Correspondence Specialist: Reinaldo Gold DO (Physician) [facility] Department of Emergency Medicine 10/27/2013 History of Present Illness Patient Identification Norah Gr is a 57 y.o. male. Patient information was obtained from patient. History/Exam limitations: none. Patient presented to the Emergency Department by: Car Chief Complaint Chief Complaint Patient presents with Altered Mental Status began this AM. 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 states pt is agitated, began this AM Pt presents to the ED with AMS. Onset of symptoms was today, with an improving course since that time. Severity is described as moderate. The pt's ex mother in law states that the pt was uncooperative with the nursing staff at his retirement this morning and has been refus ing to speak to her or anyone about his complaints which is very unusual for the pt. The pt' s mother in law indicates that the pt is complaining of abd pain in his LLQ, where he had a hernia repair and is passing a large amount of gas. The pt's mother in law indicates that th e pt is and has moved here to be closer to his son. The pt denies vomiting, hematoc hezia, hematuria, or dysuria. States has not yet eaten this morning or taken his insulin. H/o developmental disability, currently residing in retirement. PCP: JERRELL GUTIÉRREZ Past Medical History Diagnosis [...] - CHOLECYSTECTOMY; Surgeon: Jevon Vargas DO; Location: [facility] MAIN OR; Service: General; 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; Abdominal surgery Cholecystectomy Skin cancer excision 10/10/2012 Procedure: EXCISION - SKIN CANCER; Surgeon: Sy Fierro MD; Location: [facility] MAIN OR ; Service: Plastics; Laterality: Left; upper arm and upper back w/frozen section Esophagogastroduodenoscopy 03/03/2013 Procedure: ESOPHAGOGASTRODUODENOSCOPY; Surgeon: Howie Gibson MD; Location: [facility] ENDOSCOPY; S ervice: Gastroenterology; 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; Colonoscopy 03/04/2013 Procedure: COLONOSCOPY; Surgeon: Howie Gibson MD; Location: [facility] ENDOSCOPY; Service: Gastroe nterology; 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; Upper gastrointestinal endoscopy Skin biopsy Hernia repair 07/03/2013 Procedure: LAPAROSCOPIC - HERNIA - INCISIONAL; Surgeon: Jevon Vargas DO; Location: [facility] MAIN OR; Service: General; 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; Prior to Admission medications Medication Sig Start Date End Date Taking? Authorizing Provider Albuterol Sulfate (VENTOLIN HFA IN) Inhale 2 puffs into the lungs as needed. Historical Provider amLODIPine (NORVASC) 2.5 MG tablet Take 2.5 mg by mouth as needed. Take 1 tab when systolic BP above 150. Recheck BP in 2 hours and if systolic BP is still above 150, take a second pi ll. (Max of 2 a day) Historical Provider amLODIPine (NORVASC) 5 MG tablet [...] into the skin nightly. H istorical Provider gqwdfhyhj-lxzgabun-fklnpyzfy hydroxide-simethicone Take 40 mLs by mouth daily [...] Sister Heart Problems Brother Review of Systems Limited due to AMS Constitutional: Negative for: fever or chills Cardiovascular: Negative for: chest pain Respiratory: Negative for: cough or shortness of breath Gastrointestinal: Positive for: abd pain Negative for: vomiting Genitourinary: Negative for: dysuria or flank pain Musculoskeletal: Negative for: myalgias or arthralgias Skin: Negative for: rash or lesion Neuro and psych: Negative for: fainting or dizziness All other systems were reviewed and are subjectively reported as negative. Physical Exam BP 221/99 | Pulse 95 | Temp(Src) 97.7 F (36.5 C) (Oral) | Resp 18 | Wt 110.224 kg (243 lb) | BMI 33.91 kg/m2 | SpO2 94% Vitals: hypertensive, otherwise WNL Pulse Oximetry Interpretation: Normal General: Alert, in moderate distress, flat affect , cooperative Eyes: Normal inspection, pupils equal and round, non-icteric ENT: Ears normal Nose normal Pharynx normal Neck: Normal inspection Supple Full ROM Cardiovascular: Normal rate and rhythm Respiratory: No respiratory distress or wheezing, lungs are clear Abdomen: Soft, general tenderness to palpation mostly in LLQ, no rigidity, no peritoneal si gns, non-distended, diminished bowel sounds Back: Normal inspection, moves without difficulty Skin: Color normal Warm and dry No rash Extremities: BARNARD Neuro: No gross motor/sensory deficit Medical Decision Making and Emergency Department Course ED Department Course 927. Pt presents to the ED with AMS and LLQ abd pain. MDM: After introducing myself to the pt, I have performed a careful history and physical examination. I have formulated the diff erential diagnosis that needs to be addressed during this ER visit, briefly discussed this d ifferential with the pt, and then discussed with them the plan of care. I have also addresse d the risks and benefits of all diagnostic and treatment modalities planned for this ED visi t. I feel that the partial list of possible emergent diagnoses requires an evaluation which includes consideration of cholelithiasis, cholecystitis, hepatitis, pancreatitis, nephrolith iasis, urine infection, anemia, dehydration, acute renal failure, acute appendicitis, electr olyte changes, gastritis, gastroenteritis and also ileus. dehydration, medication reaction a s well as uncontrolled diabetes. My clinical examination is not consistent with acute lisy gical abdomen. I will order labs, medications, intravenous fluids and diagnostic imaging. 10:29 AM. Reviewed labs. Labs are unremarkable other than hyperglycemia. Awaiting urine 10:30 AM. Reviewed imaging. Significant constipation noted. Due to this and elevated glucos e I will order serum ketone and ammonia levels as well as dulcolax. 10:50 AM. Pt recheck. Discussed labs and imaging results with the pt. [id number] who is his caregiver at this time. 11:02 AM. Reviewed labs. Glucose is 215. The pt has not eaten or taken his insulin today. Discussed having the patient receive insulin anemia jessenia here however they both prefer to go back to the retirement facility at this time where he will get his insulin and eat the re. 11:45 AM. Pt reevaluation. I have discussed my clinical impression and treatment plan with the pt. We have specifically discussed the signs and symptoms that would constitute the need for an immediate return to the ED, the importance of continued outpatient f/u and the impor tance of compliance with the d/c instructions. I have answered any questions that the pt has to the best of my ability. Based upon the pt s history, physical exam, ED course, and dominguez gnostic studies, I feel that there is no current emergent medical condition that warrants ad mission, transfer, or further ED treatment at this time. The patient return to the retirement facility we did receive a call from this medication nurse stating that she noted that he had not been receiving his Abilify for the past 3 days, which is his mood stabilizer, and suspect this is more related to why he was acting out thi s morning. ED Medication Administration from 10/27/2013 0843 to 10/27/2013 1225 Date/Time Order Dose Route Action Action by 10/27/2013 0952 LORazepam (ATIVAN) injection 1 mg 1 mg Intravenous Given Denis Ordonez 10/27/2013 0952 ondansetron (ZOFRAN) injection 4 mg 4 mg Intravenous Given Michelle Palomares RN 10/27/2013 1105 bisacodyl (DULCOLAX) suppository 10 mg 10 mg Rectal Given Michelle Palomares RN Filed Vitals: 10/27/13 0850 10/27/13 0955 10/27/13 1039 10/27/13 1123 BP: 221/99 151/80 155/86 Pulse: 95 76 Temp: 97.7 F (36.5 C) TempSrc: Oral Resp: 18 14 16 Weight: SpO2: 94% 88% 97% 94% Records Reviewed Old ED records reviewed (Using the electronic record system of [facility], I car efully reviewed the records with regard to the past medical/surgical history, previous medic ations, and allergies). Laboratory Evaluation Results Procedure Component Value Ref Range Date/Time Ammonia Level [[id number]] (Abnormal) Collected: 10/27/13 1030 Order Status: Completed Updated: 10/27/13 1130 Specimen Information: Blood AMMONIA 61 (H) <33 umol/L POC clinitek 10 [[id number]] (Abnormal) Collected: 10/27/13 1107 Order Status: Completed Updated: 10/27/13 1111 Color, UA YELLOW Clarity, UA CLEAR Glucose, UA 100 (A) NEGATIVE mg/dL Bilirubin, UA NEGATIVE NEGATIVE Ketones, UA NEGATIVE NEGATIVE mg/dL Spec Grav, UA 1.020 1.001 - 1.035 Blood, UA NEGATIVE NEGATIVE pH, UA 6.5 4.6 - 8.0 Protein, UA TRACE (A) NEGATIVE mg/dL Urobilinogen, UA 1.0 <1.1 mg/dL Nitrite, UA NEGATIVE NEGATIVE WBC, UA NEGATIVE NEGATIVE Ketones,Serum [[id number]] Collected: 10/27/1355 Order Status: Completed Updated: 10/27/13 1043 KETONES,SERUM NEGATIVE NEGATIVE Lipase [[id number]] Collected: 10/27/1355 Order Status: Completed Updated: 10/27/13 1021 Specimen Information: Blood LIPASE 88 73 - 393 U/L Comprehensive metabolic panel [[id number]] (Abnormal) Collected: 10/27/13 0955 Order Status: Completed Updated: 10/27/13 1021 Specimen Information: Blood SODIUM 138 135 - 143 mmol/L POTASSIUM 3.8 3.5 - 4.9 mmol/L CHLORIDE 104 99 - 109 mmol/L CO2 31 23 - 32 mmol/L ANION GAP AGAP 7 5 - 20 mmol/L GLUCOSE 215 (H) 65 - 99 mg/dL BUN 17 8 - 25 mg/dL CREATININE 1.15 0.70 - 1.30 mg/dL BUN/CREAT 15 CALCIUM 8.6 8.5 - 10.2 mg/dL TOTAL PROTEIN 6.9 6.3 - 8.2 g/dL Albumin 3.2 (L) 3.6 - 5.0 g/dL GLOBULIN 3.7 1.3 - 4.9 g/dL A/G 0.9 (L) 1.0 - 2.4 TBIL 0.3 0.1 - 1.5 mg/dL ALK PHOS 98 35 - 115 U/L AST 21 10 - 45 U/L ALT 25 10 - 65 U/L EGFR >60 >60 mL/min/1.73m2 Amylase [[id number]] Collected: 10/27/13954 Order Status: Completed Updated: 10/27/13 1021 Specimen Information: Blood AMYLASE 25 25 - 115 U/L Protime-INR [[id number]] Collected: 10/27/13954 Order Status: Completed Updated: 10/27/13 1015 Specimen Information: Blood INR 1.0 CBC W/Auto Diff (Reflex to Manual) [[id number]] (Abnormal) Collected: 10/27/13954 Order Status: Completed Updated: 10/27/13 1010 Specimen Information: Blood WBC 7.7 3.8 - 11.0 K/uL RBC 4.88 4.20 - 5.70 M/uL HGB 13.1 (L) 13.2 - 17.0 g/dL HCT 38.9 (L) 39.0 - 50.0 % MCV 79.7 (L) 80.0 - 100.0 fl MCH 26.9 (L) 27.0 - 34.0 pg MCHC 33.7 32.0 - 35.5 g/dL RDW SD 41.6 37 - 53 fl PLT 263 150 - 400 K/uL MPV 7.5 fl DIFF TYPE AUTOMATED NEUTROPHILS 54.4 % LYMPHOCYTES 29.9 % MONOCYTES 10.8 % EOSINOPHILS 3.7 % BASOPHILS 1.2 % NEUTROPHILS ABS 4.2 1.9 - 7.4 K/uL LYMPHOCYTES ABS 2.3 1.0 - 3.9 K/uL MONOCYTES ABS 0.8 0 - 0.8 K/uL EOSINOPHILS ABS 0.3 0 - 0.5 K/uL BASOPHILS ABS 0.1 0 - 0.1 K/uL I personally reviewed the lab results and they have been posted to the chart. Pertinent po sitive and negative findings have been addressed appropriately. Radiology and EKG Evaluation Imaging Results XR Acute Abdominal Series (Final result) Result time: 10/27/13 10:31:22 Final result by Rad Results In Richard (10/27/13 10:31:22) Impression: 1. No evidence of obstruction or perforation. Narrative: NORAH GR 1955 XR ABDOMEN ACUTE SERIES 10/27/2013 10:29 AM INDICATION: Abdominal pain COMPARISON: 08/13/13 TECHNIQUE: Abdominal series, 3 views, single AP view of the chest, 2 views of the abdomen FINDINGS: The cardiomediastinal contours are normal. There is no mediastinal widening or s hift. The lungs are clear. Cholecystectomy clips are again seen in the right upper quadrant. There is no free air. There are no air fluid levels. There are no dilated loops of bowel. There is no organomegaly. 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 ED Interpretation Documented by Reinaldo Gold DO (10/27/13 10:31:15, [facility] Emergency Department, Emergency Medicine) No obvious free air is noted under the diaphragm, no obvious obstruction, there are increased areas of distention noted however no obvious obstruction, there is increased fecal content noted throughout the colon as well. Chest x-ray component reveals no acute infiltrate or cardiopulmonary process noted ED Diagnoses Final diagnoses Abdominal pain Constipation Hyperglycemia Diabetes Disposition: ED Disposition Discharge Condition at discharge: Stable Follow-up Information Follow up With Details Comments Contact Info Jerrell Gutiérrez DO Call [phone] [facility] [phone] [facility] Emergency Department If symptoms worsen [address] [place] [id number] Discharge Medications: Discharge Medication List as of 10/27/2013 11:48 AM Procedures Additional Documentation Procedures Attending Note: Documentation assistance provided by Veronica Duong (Scribe). Information recorded by the scribe has been reviewed and validated by me. Troy laughlin with its contents. DO Reinaldo Vargas DO 10/29/13 0751 documented in th is encounter Plan of Treatment +--------+---------+ + + + | Date | Type | Specialty | Care Team | Description | +--------+---------+ + + + | 09/10/ | Office | Geriatric Medicine | Mireya Pack, | | | 2019 | Visit | | AUTO TECHNICIAN [address] | | | | | | [address] [place], | | | | | | [place] [address] | | | | | | [phone] | | | | | | | | +--------+---------+ + + + | 09/29/ | Office | Urology | Mireya Pack, | | | 2019 | Visit | | AUTO TECHNICIAN [address] | | | | | | [address] [place], | | | | | | [place] [address] | | | | | | [phone] | | | | | | | | | | | | Toy Wild, DO | | | | | | [address] | | | | | | [place] [address] | | | | | | [phone] | | | | | | | | +--------+---------+ + + + documented as of this encounter Procedures + +--------+ + + + | Procedure Name | Priori | Date/Time | Associated Diagnosis | Comments | | | ty | | | | + +--------+ + + + | POC GLUCOSE | Routin | 10/27/2013 | | Results for this | | | e | 11:00 AM | | procedure are in the | | | | PDT | | results section. | + +--------+ + + + | AMMONIA | Routin | 10/27/2013 | | Results for this | | | e | 10:30 AM | | procedure are in the | | | | PDT | | results section. | + +--------+ + + + | XR ABDOMEN AP | Routin | 10/27/2013 | | Results for this | | UPRIGHT KUB AND PA | e | 10:29 AM | | procedure are in the | | CHEST | | PDT | | results section. | + +--------+ + + + | EXTERNAL LAB: CBC | Routin | 10/27/2013 | | Results for this | | | e | 9:55 AM | | procedure are in the | | | | PDT | | results section. | + +--------+ + + + | PROTIME INR | Routin | 10/27/2013 | | Results for this | | | e | 9:55 AM | | procedure are in the | | | | PDT | | results section. | + +--------+ + + + | LIPASE | Routin | 10/27/2013 | | Results for this | | | e | 9:55 AM | | procedure are in the | | | | PDT | | results section. | + +--------+ + + + | AMYLASE | Routin | 10/27/2013 | | Results for this | | | e | 9:55 AM | | procedure are in the | | | | PDT | | results section. | + +--------+ + + + | KETONES, BLOOD | Routin | 10/27/2013 | | Results for this | | | e | 9:55 AM | | procedure are in the | | | | PDT | | results section. | + +--------+ + + + | COMPREHENSIVE | Routin | 10/27/2013 | | Results for this | | METABOLIC PANEL | e | 9:55 AM | | procedure are in the | | | | PDT | | results section. | + +--------+ + + + documented in this encounter Results POC Glucose (10/27/2013 11:00 AM PDT) + + + + + + | Component | Value | Ref Range | Performed | Pathologist | | | | | At | Signature | + + + + + + | Glucose, | 198 (H)Comment: Testing | 65 - 99 mg/dL | EXTERNAL | | | Fingerstick | performed at [facility];[address] | LAB | | | [address];[place], [place] | | | | | | [address] | | | | + + + + + + + + | Specimen | + + | | + + + +---------+ + + | Performing | Address | City/State/Zipcode | Phone Number | | Organization | | | | + +---------+ + + | EXTERNAL LAB | | | | + +---------+ + + Ammonia (10/27/2013 10:30 AM PDT) + + + + + + | Component | Value | Ref Range | Performed | Pathologist | | | | | At | Signature | + + + + + + | Ammonia | 61 (H)Comment: Testing | umol/L | EXTERNAL | | | | performed at [facility] | | LAB | | | | [address];[place], [place] | | | | | | [address] | | | | + + + [...] Supine and Upright w 1 Vw Chest (10/27/2013 10:29 AM PDT) + + | Specimen | + + | | + + + + + | Impressions | Performed At | + + + | 1. No evidence of obstruction or perforation. Electronically | | | signed by Kishan Ji MD on 10/27/2013 10:31 AM | | + + + + + + | Narrative | Performed At | + + + | [facility] 1955 XR ABDOMEN ACUTE SERIES 10/27/2013 10:29 | | | AM INDICATION: Abdominal pain COMPARISON: 08/13/13 | | | TECHNIQUE: Abdominal series, 3 views, single AP view of the chest, 2 | | | views of the abdomen FINDINGS: The cardiomediastinal contours | | | are normal. There is no mediastinal widening or shift. The lungs are | | | clear. Cholecystectomy clips are again seen in the right upper | | | quadrant. There is no free air. There are no air fluid levels. There | | | are no dilated loops of bowel. There is no organomegaly. There | | | appears to be moderate osteoarthritis of the left hip joint. | | + + + + + | Procedure Note | + + | Joaquin Ramos Conversion - 09/21/2018 3:31 PM SHALONDA GR1955XR ABDOMEN ACUTE | | SERIES10/27/2013 10:29 AM INDICATION: Abdominal pain COMPARISON: 08/13/13 TECHNIQUE: | | Abdominal series, 3 views, single AP view of the chest, 2 views of the abdomen FINDINGS: | | The cardiomediastinal contours are normal. There is no mediastinal widening or shift. | | The lungs are clear. Cholecystectomy clips are again seen in the right upper quadrant. | | There is no free air. There are no air fluid levels. There are no dilated loops of | | bowel. There is no organomegaly. There appears to be moderate osteoarthritis of the left | | hip joint. IMPRESSION: 1. No evidence of obstruction or perforation. Electronically | | signed by Kishan Ji MD on 10/27/2013 10:31 AM | |TECHNIQUE: Abdominal series, 3 views, single AP view of the chest, 2 views of the abdomen | | | |FINDINGS: The cardiomediastinal contours are normal. There is no mediastinal widening or s hift. The lungs are clear. Cholecystectomy clips are again seen in the right upper quadrant. There is no free air. There are no air fluid levels. There are no | |dilated loops of bowel. There is no organomegaly. There appears to be moderate osteoarthrit is of the left hip joint. | | | |IMPRESSION: | |1. No evidence of obstruction or perforation. | | | | | + + Ketones, blood (10/27/2013 9:55 AM PDT) + + + + + + | Component | Value | Ref Range | Performed | Pathologist | | | | | At | Signature | + + + + + + | Ketones, | NEGATIVEComment: Testing | | EXTERNAL | | | Blood | performed at [facility] | | LAB | | | | [facility];[place], [place] | | | | | | [address] | | | | + + + + + + + + | Specimen | + + | | + + + +---------+ + + | Performing | Address | City/State/Zipcode | Phone Number | | Organization | | | | + +---------+ + + | EXTERNAL LAB | | | | + +---------+ + + Protime INR (10/27/2013 9:55 AM PDT) + + + + + [...] performed at [facility];[address] | | | | | | [address];[place] | | | | | | [address] | | | | + + + [...] + +---------+ + + External Lab: CBC (10/27/2013 9:55 AM PDT) + + + + + + | Component | Value | Ref Range | Performed | Pathologist | | | | | At | Signature | + + + + + + | WBC | 7.7Comment: Testing | 3.8 - 11.0 K/uL | EXTERNAL | | | | performed at [facility];[address] | | LAB | | | [address];[place] | | | | | | [address] | | | | + + + + + + | Non- | 4.88Comment: Testing | 4.20 - 5.70 | EXTERNAL | | | Red Blood | performed at [facility];[address] | M/uL | LAB | | | Cells | [address];[place] | | | | | Counted | [address] | | | | + + + + + + | Hemoglobin | 13.1 (L)Comment: Testing | 13.2 - 17.0 | EXTERNAL | | | | performed at [facility];[address] | g/dL | LAB | | | | [address];[place] | | | | | | [address] | | | | + + + + + + | Hematocrit, | 38.9 (L)Comment: Testing | 39.0 - 50.0 % | EXTERNAL | | | POC | performed at [facility];[address] | | LAB | | | | [address];[place] | | | | | | [address] | | | | + + + + + + | MCV | 79.7 (L)Comment: Testing | 80.0 - 100.0 fl | EXTERNAL | | | | performed at [facility];[address] | | LAB | | | [address];[place] | | | | | | [address] | | | | + + + + + + | MCH | 26.9 (L)Comment: Testing | 27.0 - 34.0 pg | EXTERNAL | | | | performed at [facility];[address] | | LAB | | | [address];[place] | | | | | | [address] | | | | + + + + + + | MCHC | 33.7Comment: Testing | 32.0 - 35.5 | EXTERNAL | | | | performed at [facility];[address] | g/dL | LAB | | | | [address];[place] | | | | | | [address] | | | | + + + + + + | RDW-CV | 41.6Comment: Testing | 37 - 53 fl | EXTERNAL | | | | performed at [facility];[address] | | LAB | | | [address];[place] | | | | | | [address] | | | | + + + + + + | Platelet | 263Comment: Testing | 150 - 400 K/uL | EXTERNAL | | | Count | performed at [facility];[address] | | LAB | | | Plasma | [address];[place] | | | | | | [address] | | | | + + + + + + | MPV | 7.5Comment: Testing | fl | EXTERNAL | | | | performed at [facility];[address] | | LAB | | | | [address];[place] | | | | | | [address] | | | | + + + + + + | Differentia | AUTOMATEDComment: | | EXTERNAL | | | l Type | Testing performed at | | LAB | | | | [facility];[address];[place] [address] | | | | + + + + + + | % Segmented | 54.4Comment: Testing | % | EXTERNAL | | | | performed at [facility];[address] | | LAB | | | Neutrophils | [address];[place] | | | | | | [address] | | | | + + + + + + | % | 29.9Comment: Testing | % | EXTERNAL | | | Lymphocytes | performed at [facility];[address] | | LAB | | | | [address];[place] | | | | | | [address] | | | | + + + + + + | % Monocytes | 10.8Comment: Testing | % | EXTERNAL | | | | performed at [facility];[address] | | LAB | | | | [address];[place] | | | | | | [address] | | | | + + + + + + | % | 3.7Comment: Testing | % | EXTERNAL | | | Eosinophils | performed at [facility];[address] | | LAB | | | | [address];[place] | | | | | | [address] | | | | + + + + + + | % Basophils | 1.2Comment: Testing | % | EXTERNAL | | | | performed at [facility];[address] | | LAB | | | | [address];[place] | | | | | | [address] | | | | + + + + + + | Absolute | 4.2Comment: Testing | 1.9 - 7.4 K/uL | EXTERNAL | | | Segmented | performed at [facility];[address] | | LAB | | | Neutrophils | [address];[place] | | | | | | [address] | | | | + + + + + + | Absolute | 2.3Comment: Testing | 1.0 - 3.9 K/uL | EXTERNAL | | | Lymphocytes | performed at [facility];[address] | | LAB | | | | [address];[place] | | | | | | [address] | | | | + + + + + + | Absolute | 0.8Comment: Testing | 0 - 0.8 K/uL | EXTERNAL | | | Monocytes | performed at [facility];[address] | | LAB | | | | [address];[place] | | | | | | [address] | | | | + + + + + + | Absolute | 0.3Comment: Testing | 0 - 0.5 K/uL | EXTERNAL | | | Eosinophils | performed at [facility];[address] | | LAB | | | | [address];[place] | | | | | | [address] | | | | + + + + + + | Absolute | 0.1Comment: Testing | 0 - 0.1 K/uL | EXTERNAL | | | Basophils | performed at [facility];[address] | | LAB | | | | [address];[place], [place] | | | | | | [address] | | | | + + + + + + + + | Specimen | + + | Blood specimen | | (specimen) | + + + +---------+ + + | Performing | Address | City/State/Zipcode | Phone Number | | Organization | | | | + +---------+ + + | EXTERNAL LAB | | | | + +---------+ + + Lipase (10/27/2013 9:55 AM PDT) + + + + + + | Component | Value | Ref Range | Performed | Pathologist | | | | | At | Signature | + + + + + + | Lipase | 88Comment: Testing | 73 - 393 U/L | EXTERNAL | | | | performed at [facility];[address] | | LAB | | | | [address];[place] | | | | | | [address] | | | | + + + + + + + + | Specimen | + + | Blood specimen | | (specimen) | + + + +---------+ + + | Performing | Address | City/State/Zipcode | Phone Number | | Organization | | | | + +---------+ + + | EXTERNAL LAB | | | | + +---------+ + + Amylase (10/27/2013 9:55 AM PDT) + + + + + + | Component | Value | Ref Range | Performed | Pathologist | | | | | At | Signature | + + + + + + | Amylase | 25Comment: Testing | 25 - 115 U/L | EXTERNAL | | | | performed at [facility];8 | | LAB | | | | [address];[place], [place] | | | | | | [address] | | | | + + + [...] + +---------+ + + Comprehensive Metabolic Panel (10/27/2013 9:55 AM PDT) + + + + + + | Component | Value | Ref Range | Performed | Pathologist | | | | | At | Signature | + + + + + + | Na | 138Comment: Testing | 135 - 143 | EXTERNAL | | | | performed at [facility];888 | mmol/L | LAB | | | | [address];[place], [place] | | | | | | [address] | | | | + + + + + + | K | 3.8Comment: Testing | 3.5 - 4.9 | EXTERNAL | | | | performed at [facility];[address] | mmol/L | LAB | | | | [address];[place] | | | | | | [address] | | | | + + + + + + | Cl | 104Comment: Testing | 99 - 109 mmol/L | EXTERNAL | | | | performed at [facility];[address] | | LAB | | | | [address];[place] | | | | | | [address] | | | | + + + + + + | CO2 | 31Comment: Testing | 23 - 32 mmol/L | EXTERNAL | | | | performed at [facility];[address] | | LAB | | | | [address];[place] | | | | | | [address] | | | | + + + + + + | Anion Gap | 7Comment: Testing | 5 - 20 mmol/L | EXTERNAL | | | | performed at [facility];[address] | | LAB | | | | [address];[place] | | | | | | [address] | | | | + + + + + + | Glucose, | 215 (H)Comment: Testing | 65 - 99 mg/dL | EXTERNAL | | | Fasting | performed at [facility];[address] | | LAB | | | | [address];[place] | | | | | | [address] | | | | + + + + + + | BUN | 17Comment: Testing | 8 - 25 mg/dL | EXTERNAL | | | | performed at [facility];[address] | | LAB | | | | [address];[place] | | | | | | [address] | | | | + + + + + + | Creatinine | 1.15Comment: Testing | 0.70 - 1.30 | EXTERNAL | | | | performed at [facility];888 | mg/dL | LAB | | | | [address];[place] | | | | | | [address] | | | | + + + + + + | BUN/Creatin | 15Comment: Testing | | EXTERNAL | | | ine Ratio | performed at [facility];[address] | | LAB | | | | [address];[place] | | | | | | [address] | | | | + + + + + + | Calcium | 8.6Comment: Testing | 8.5 - 10.2 | EXTERNAL | | | | performed at [facility];888 | mg/dL | LAB | | | | [address];[place] | | | | | | [address] | | | | + + + + + + | Protein, | 6.9Comment: Testing | 6.3 - 8.2 g/dL | EXTERNAL | | | Total | performed at [facility];[address] | | LAB | | | | [address];[place] | | | | | | [address] | | | | + + + + + + | Albumin | 3.2 (L)Comment: Testing | 3.6 - 5.0 g/dL | EXTERNAL | | | | performed at [facility];[address] | | LAB | | | | [address];[place] | | | | | | [address] | | | | + + + + + + | Globulin | 3.7Comment: Testing | 1.3 - 4.9 g/dL | EXTERNAL | | | | performed at [facility];[address] | | LAB | | | | [address];[place] | | | | | | [address] | | | | + + + + + + | A/G Ratio | 0.9 (L)Comment: Testing | 1.0 - 2.4 | EXTERNAL | | | | performed at [facility];[address] | | LAB | | | | [address];[place] | | | | | | [address] | | | | + + + + + + | Bilirubin | 0.3Comment: Testing | 0.1 - 1.5 mg/dL | EXTERNAL | | | Total | performed at [facility];[address] | | LAB | | | | [address];[place] | | | | | | [address] | | | | + + + + + + | ALP, | 98Comment: Testing | 35 - 115 U/L | EXTERNAL | | | External | performed at [facility];[address] | | LAB | | | | [address];[place] | | | | | | [address] | | | | + + + + + + | AST | 21Comment: Testing | 10 - 45 U/L | EXTERNAL | | | | performed at [facility];[address] | | LAB | | | | [address];[place] | | | | | | [address] | | | | + + + + + + | ALT | 25Comment: Testing | 10 - 65 U/L | EXTERNAL | | | | performed at [facility];[address] | | LAB | | | | [address];[place] | | | | | | [address] | | | | + + + [...] | | | | | | at [facility];[address] [place] [address] | | | | | | [facility];[place] [address] | | | | + + + [...] | Constipation Unspecified constipation | + + | Hyperglycemia Other abnormal glucose | + + | Diabetes (HCC) | + + documented in this encounter"
--- OUTSIDE RECORDS SUMMARY | ~2019-09-09 | XMS | Encounter Summary ---
Demographics + + + | Address | [address] | | | [place] [address] | + + + | Home Phone | | + + + | Preferred Language | Unknown | + + + | Marital Status | | + + + | Amish Affiliation | [id number] | + + + [...] | Sammi Kohler | ECON | [place] [address] | | + + + + + Care Team Providers + +------+ + | Care Logistics Program Manager Name | Role | Phone | + +------+ + PCP | Unavailable | + +------+ + Encounter Details +--------+ + + + + | Date | Type | Department | Care Team | Description | +--------+ + + + + | 01/13/ | Emergency | [facility] | Elmo Souza | | | 2013 | | [facility] | DO Norah [address] | encounter; Back pain | | | | [facility] | [address] | | | | | [address] | [place] [address] | | | | | [place] | [phone] | | | | | [address] | | | | | | [phone] | | | +--------+ + + + [...] Notes Conversion Transaction, Provider Unknown - 01/13/2014 8:55 PM PSTFormatting of this note m ight be different from the original. ED Notes by Jane Lagos at 01/13/142054 Author: Jane Lagos Service: (none) Author Type: Technologist Filed: 01/13/142055 Date of Service: 01/13/142054 Status: Signed Photonics Engineer: Jane Lagos (Technologist) Pt back to room from xray. Jane Lagos 01/13/142055 renhcadwick hewitt, Kristian Márquez PA-C - 01/13/2014 8:34 PM PST ED Provider Notes by Kristian Nunez PA-C at 01/13/142033 Author: Kristian Nunez PA-C Service: Emergency Department Author Type: Physician A ssistant - Certified Filed: 01/14/14115 Date of Service: 01/13/142033 Status: Attested Photonics Engineer: Kristian Nunez PA-C (Physician Cone Operator - Certified) Cosigner: Elmo Souza DO at 01/14/14255 Attestation signed by Elmo Souza DO at 01/14/14255 I was present for veronica portions of this patient's care during their visit today. I supervis ed the midlevel provider in their care provided at this visit. ELMO SOUZA Procedures [facility] Department of Emergency Medicine HPI History of Present Illness Patient Identification Norah Gr is a 58 y.o. male. Patient information was obtained from patient. History/Exam limitations: none. Patient presented to the Emergency Department by: Car Chief Complaint Chief Complaint Patient presents with Back Injury fell out of bed this morning The patient complains of a fall, with injury to the lower back. This occurred at the follow ing location: at home patient fell out of his bed landing on his hands and knees. The fall occurred while the patient was laying in bed. The patient has no other complaints at this ti me. The patient complaints of the following location of pain/injuries: Pain across the entire l umbar region Care prior to arrival consisted of an ER visit earlier this morning, or he received pain me dication with mild relief. Patient was seen and evaluated earlier today for fall, and back pain. The pain pills given in ED, with discharge instructions to follow up with PCP. Patient states that he came in t o the ED tonight due to pain, and states that he ran out of his pain medication. Patient denies any bowel or bladder incontinence, numbness or weakness, fevers, and saddle anesthesia. Past Medical History Diagnosis Date Diabetes mellitus [...] - CHOLECYSTECTOMY; Surgeon: Jevon Vargas DO; Location: [facility] MAIN OR; Service: General; 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; Abdominal surgery Cholecystectomy Skin cancer excision 10/10/2012 Procedure: EXCISION - SKIN CANCER; Surgeon: Sy Fierro MD; Location: [facility] MAIN OR ; Service: Plastics; Laterality: Left; upper arm and upper back w/frozen section Esophagogastroduodenoscopy 03/03/2013 Procedure: ESOPHAGOGASTRODUODENOSCOPY; Surgeon: Howie Gibson MD; Location: [facility] ENDOSCOPY; S ervice: Gastroenterology; 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; Colonoscopy 03/04/2013 Procedure: COLONOSCOPY; Surgeon: Howie Gibson MD; Location: [facility] ENDOSCOPY; Service: Gastroe nterology; 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; Upper gastrointestinal endoscopy Skin biopsy Hernia repair 07/03/2013 Procedure: LAPAROSCOPIC - HERNIA - INCISIONAL; Surgeon: Jevon Vargas DO; Location: [facility] MAIN OR; Service: General; 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; Prior to Admission medications Medication Sig Start Date End Date Taking? Authorizing Provider Albuterol Sulfate (VENTOLIN HFA IN) Inhale 2 puffs into the lungs as needed. 108 mcg/act Yes Historical Provider Rcpdl-C-Weawnmmobfjvv (BEANO) TABS Take 150 Units by mouth 3 (three) times daily as needed (As needed for gas). Yes Historical Provider amLODIPine (NORVASC) 10 MG tablet Take 1 tablet by mouth daily. 12/03/13 Yes Augustine Agosto MD antipyrine-benzocaine (AURALGAN) otic solution Place 4 drops into both ears daily. Yes Hi storical Provider ARIPiprazole (ABILIFY) 15 MG tablet Take 20 mg by mouth daily. Yes Historical Provider aspirin 81 MG chewable tablet Take 1 tablet by mouth daily with breakfast. 05/27/13 05/27/14 Yes Augustine Agosto MD calcium carbonate (TUMS) 500 MG chewable tablet Take 500-1,000 mg by mouth daily as needed. For GERD Yes Historical Provider clonazePAM (KLONOPIN) 1 MG tablet [...] by mouth nightly. Yes Historical Provide r wooggvekd-vrrexdad-ghllsjujo hydroxide-simethicone Take 40 mLs by mouth daily [...] 8 mg per day. Yes Historical Provider Mometasone Furo-Formoterol Fum (DULERA) 100-5 MCG/ACT AERO Inhale 2 puffs into the lungs 2 (two) times daily. Yes Historical Provider naproxen sodium (ANAPROX) 220 MG tablet Take 220 mg by mouth 2 (two) times daily with meals . Yes Historical Provider nitroGLYCERIN (NITROSTAT) 0.4 MG [...] 6 (six) hours as needed for Nausea. Yes Historical Provider oxyCODONE-acetaminophen (PERCOCET) 5-325 MG per [...] the lungs daily. Yes Hi storical Provider lurasidone (LATUDA) 20 MG tablet Take [...] problems Musculoskeletal: Negative for: myalgias and arthralgias positive for: Lower back pain Skin: Negative for: laceration or lesion Neuro and psych: Negative for: fainting, head injury, seizure, trouble walking Endocrine/Heme/Lymph: Negative for: swollen lymph nodes, easy bruising Physical Exam Physical Exam BP 176/81 | Pulse 88 | Temp(Src) 98 F (36.7 C) (Oral) | Resp 20 | Ht 1.803 m (5' 10.98" ) | Wt 106.142 kg (234 lb) | BMI 32.65 kg/m2 | SpO2 97% Pulse Oximetry interpretation: Normal General: Alert and oriented, appears to be in slight distress Eyes: Normal inspection, pupils equal and round, non-icteric ENT: Ears normal Nose normal Pharynx normal Neck: Supple, full range of motion demonstrated without pain, no pain to palpation over ce rvical spine Cardiovascular: Rate and rhythm normal No murmurs Respiratory: Breath sounds normal bilaterally Abdomen: Soft, non-tender, non-distended No guarding or rebound Genitourinary: Deferred Rectal exam: Deferred Back: No obvious abnormalities, pain to palpation over entire lumbar region. Skin: Color normal Warm and dry No rash Neuro: No motor deficit No sensory deficit Normal gait ED Course Medical Decision Making and Emergency Department Course ED Department Course I entered the room to guide the patient, and take a history. Patient relate story above in history of present illness. He relates a history of a vertebral body fracture, and states that he feels that this fall has aggravated his chronic pain. He said he ran out of his allen n pills that were prescribed by his PCP, and states that the doctor earlier today would not refill his prescription. I will x-ray the patient's back to ensure that there is no new fra cture. I instructed the patient that I will not refill his chronic back pain medication, bu t he needs to follow up with his PCP which she has been told several times but has neglected to do so. Patient became agitated and called a cab, before results of x-ray returned. X-r ay results returned just before Arrived to rock picker the patient, patient signed discharge pap erwork and agreed to follow up with his PCP for further pain control. Records Reviewed Old medical records. Labs & Radiology Results Laboratory Evaluation Results None Radiology and EKG Evaluation Imaging Results XR Lumbar Spine 3 Views (Final result) Result time: 01/13/14 21:03:26 Final result by Rad Results In Richard (01/13/14 21:03:26) Impression: 1. Possible mild acute or chronic compression fracture of L1 vertebral body. 2. No other findings. Narrative: [facility] GR XR LUMBAR SPINE LIMITED 2-3 VIEW 01/13/2014 8:55 PM History: 58 years. Male. Low back pain after injury. Technique: AP, lateral, and lumbosacral junction spot views, recumbent position. Findings: There are 5 lumbar segments. The L1 vertebral body shows some loss of height ant eriorly, approximately 4-5 mm as compared with T12 and L2, which may indicate a mild acute o r chronic compression fracture. Cortical bone appears to be intact on the superior and infer ior endplates of L1. The remaining lumbar vertebral bodies appear normal. T10-T12 vertebral bodies likewise show normal height. The posterior elements are intact. The facet joints appear normal. No focal osteolytic proc ess visualized in the range of the examination. Sacroiliac joints show normal cartilage spa ce and bone density. The hip joints are partially visualized and appear normal. The sacrum i s normal. Diagnosis & Disposition ED Diagnoses Final diagnoses Fall, subsequent encounter Back pain Disposition: ED Disposition Discharge Condition at discharge: Stable Follow-up Information Follow up With Details Comments Contact Info Jerrell Diego DO Schedule an appointment as soon as possible for a visit For follow up [address] [facility] [address] [facility] Emergency Department in [place] As needed, If symptoms worsen [address] [facility] [address] Discharge Medications: Discharge Medication List as of 01/13/2014 9:15 PM Kristian Nunez PA-C 01/14/14 0116 Elmo Souza DO 01/14/14 0256 documentchad light in this encounter Plan of Treatment +--------+---------+ + + + | Date | Type | Specialty | Care Team | Description | +--------+---------+ + + + | 09/10/ | Office | Geriatric Medicine | Mireya Pack, | | | 2019 | Visit | | FLOW NURSE [address] | | | | | | [address] [place], | | | | | | [place] [address] | | | | | | [phone] | | | | | | | | +--------+---------+ + + + | 09/29/ | Office | Urology | Mireya Pack, | | | 2019 | Visit | | FLOW NURSE [address] | | | | | | [address] [place], | | | | | | [place] [address] | | | | | | [phone] | | | | | | | | | | | | Toy Wild, DO | | | | | | [address] | | | | | | [place] [address] | | | | | | [phone] | | | | | | | | +--------+---------+ + + + documented as of this encounter Procedures + +--------+ + + + | Procedure Name | Priori | Date/Time | Associated Diagnosis | Comments | | | ty | | | | + +--------+ + + + | XR LUMBAR SPINE 2 OR | Routin | 01/13/2014 | | Results for this | | 3 VW | e | 8:55 PM | | procedure are in the | | | | PST | | results section. | + +--------+ + + + documented in this encounter Results XR Lumbar Spine 2 or 3 Vw (01/13/2014 8:55 PM PST) + + | Specimen | + + | | + + + + + | Impressions | Performed At | + + + | 1. Possible mild acute or chronic compression fracture of L1 | | | vertebral body. 2. No other findings. | | + + + + + + | Narrative | Performed At | + + + | [facility] LUMBAR SPINE LIMITED 2-3 VIEW 01/13/2014 8:55 PM | | | History: 58 years. Male. Low back pain after injury. | | | Technique: AP, lateral, and lumbosacral junction spot views, | | | recumbent position. Findings: There are 5 lumbar segments. The | | | L1 vertebral body shows some loss of height anteriorly, approximately | | | 4-5 mm as compared with T12 and L2, which may indicate a mild acute or | | | chronic compression fracture. Cortical bone appears to be intact on | | | the superior and inferior endplates of L1. The remaining lumbar | | | vertebral bodies appear normal. T10-T12 vertebral bodies likewise show | | | normal height. The posterior elements are intact. The facet | | | joints appear normal. No focal osteolytic process visualized in the | | | range of the examination. Sacroiliac joints show normal cartilage | | | space and bone density. The hip joints are partially visualized and | | | appear normal. The sacrum is normal. | | + + + + + | Procedure Note | + + | Richard, Rad Conversion - 09/21/2018 3:31 PM PDT [facility] AMARAL LUMBAR SPINE LIMITED | | 2-3 VIEW01/13/2014 8:55 PM History: 58 years. Male. Low back pain after injury. | | Technique: AP, lateral, and lumbosacral junction spot views, recumbent position. | | Findings: There are 5 lumbar segments. The L1 vertebral body shows some loss of height | | anteriorly, approximately 4-5 mm as compared with T12 and L2, which may indicate a mild | | acute or chronic compression fracture. Cortical bone appears to be intact on the | | superior and inferior endplates of L1. The remaining lumbar vertebral bodies appear | | normal. T10-T12 vertebral bodies likewise show normal height. The posterior elements are | | intact. The facet joints appear normal. No focal osteolytic process visualized in the | | range of the examination. Sacroiliac joints show normal cartilage space and bone | | density. The hip joints are partially visualized and appear normal. The sacrum is | | normal. IMPRESSION: 1. Possible mild acute or chronic compression fracture of L1 | | vertebral body.2. No other findings. Electronically signed by Dank Sharma MD on | | 01/13/2014 9:03 PM | | normal. The sacrum is normal. | | | |IMPRESSION: | |1. Possible mild acute or chronic compression fracture of L1 vertebral body. | |2. No other findings. | | | | | + + documented in this encounter Visit Diagnoses + + | Diagnosis | + + | Fall, subsequent encounter | + + | Back pain Backache, unspecified | + + documented in this encounter
--- OUTSIDE RECORDS SUMMARY | ~2019-09-09 | XMS | Encounter Summary ---
Demographics + + + | Address | [address] | | | [place] [address] | + + + | Home Phone | | + + + | Preferred Language | Unknown | + + + | Marital Status | | + + + | Jain Affiliation | 1027 | + + + | Race | Unknown | + + + | Ethnic Group | Unknown | + + + Author + + + | Author | [facility] | | | and [place] | + + + | Organization | [facility] | | | and [place] | + + + | Address | Unknown | + + + | Phone | Unavailable | + + + Support + + + + + | Name | Relationship | Address | Phone | + + + + + | Sammi Kohler | ECON | [place] [address] | | + + + + + Care Team Providers + +------+ + | Care Jig And Fixture Repairer Name | Role | Phone | + +------+ + | Mik Diego DO | PCP | | + +------+ + Encounter Details +--------+ + + + + | Date | Type | Department | Care Team | Description | +--------+ + + + + | 05/26/ | Orders Only | [facility] | Conversion | | | 2015 | | CENTER | Transaction, | | | | | ANTICOAGULATION | Provider Unknown | | | | | [facility] [place] | | | | | | [address] | (Fax) | | | | | [place], [place] | | | | | | [address] | | | | | | [phone] | | | +--------+ + + + [...] encounter Progress Notes Jaelyn Chiang ARNP - 05/26/2014 2:37 PM PDTFormatting of this note might be different f rom the original. Progress Notes by CITLALY Romo at 05/26/141436 Author: CITLALY Romo Service: (none) Author Type: Advanced Registered Nurse Zaina ctitioner Filed: 05/26/14 1438 Encounter Date: 05/26/2014 Status: Signed Aircraft [employer] Repairer: CITLALY Romo (Advanced Registered Nurse Practitioner) S- Maintenance visit. INR check and warfarin dosing. Pt dosed warfarin as directed. No medication changes reported. No illnesses or ER visits. No increased bruising or bleeding. O- INR 2.7 A- Therapeutic INR P- Continue same dosage. Recheck INR in 2 weeks documented in this encounter Plan of Treatment +--------+---------+ + + + | Date | Type | Specialty | Care Team | Description | +--------+---------+ + + + | 09/10/ | Office | Geriatric Medicine | Mireya Pack, | | | 2019 | Visit | | [facility] [address] | | | | | | [address] [place], | | | | | | [place] [address] | | | | | | [phone] | | | | | | | | +--------+---------+ + + + | 09/29/ | Office | Urology | Mireya Pack, | | | 2019 | Visit | | [facility] [address] | | | | | | [address] [place], | | | | | | [place] [address] | | | | | | [phone] | | | | | | | | | | | | Toy Wild, DO | | | | | | [address] | | | | | | [place] [address] | | | | | | [phone] | | | | | | | | +--------+---------+ + + + documented as of this encounter Procedures + +--------+ + + + | Procedure Name | Priori | Date/Time | Associated Diagnosis | Comments | | | ty | | | | + +--------+ + + + | POC INR | Routin | 05/26/2014 | | Results for this | | | e | 12:00 AM | | procedure are in the | | | | PDT | | results section. | + +--------+ + + + documented in this encounter Results POC INR (05/26/2014 12:00 AM PDT) + +-------+ + + + | Component | Value | Ref Range | Performed | Pathologist | | | | | At | Signature | + +-------+ + + + | INR | 2.7 | | EXTERNAL | | | | [...]
--- OUTSIDE RECORDS SUMMARY | ~2019-09-09 | XMS | Encounter Summary ---
Demographics + + + | Address | [address] | | | [place] [address] | + + + | Home Phone | | + + + | Preferred Language | Unknown | + + + | Marital Status | | + + + | Restoration Affiliation | [id number] | + + + | Race | Unknown | + + + | Ethnic Group | Unknown | + + + Author + + + | Author | [facility] | | | and [place] | + + + | Organization | [facility] | | | and [place] | + + + | Address | Unknown | + + + | Phone | Unavailable | + + + Support + + + + + | Name | Relationship | Address | Phone | + + + + + | Sammi Kohler | ECON | [place] [address] | | + + + + + Care Team Providers + +------+ + | Care Pharmacy Informaticist Name | Role | Phone | + +------+ + PCP | Unavailable | + +------+ + Encounter Details +--------+ + + + + | Date | Type | Department | Care Team | Description | +--------+ + + + + | 12/15/ | Emergency | [facility] | Yesica Flowers, | Fall, initial | | 2014 | | [facility] | DO [address] | encounter; | | | | EMERGENCY CENTER | [place] [address] | Headache(784.0); | | | | [address] | [phone] | Neck pain on right | | | | [place], [place] | | side; Nausea | | | | [address] | | | | | | [phone] | | | +--------+ + + + [...] Progress Notes Conversion Transaction, Provider Unknown - 12/15/2013 1:38 PM PSTFormatting of this note m ight be different from the original. Case Management by QUINN Tyson at 12/15/13 8104 Author: QUINN Tyson Service: (none) Author Type: Assistant Merchandise Manager Filed: 12/15/13 2033 Date of Service: 12/15/13 6267 Status: Signed Marketing Writer: QUINN Tyson (Assistant Merchandise Manager) COLTON alert rec'd, 38 ED visits < 12 months. [facility] Guidelines are in alen ce at this time: Care Recommendation: Kevyn has a printed Crisis Plan at the Assisted Living Facility that he is to follow before coming to the ED for non life-threatening issues. Please discuss with Kevyn when he present s to the ED The following guidelines were formulated by the ED Care Guidelines Committee of the [facility] Consistent Care Program on May 21, 2013. No controlled substances should be administered in the ED or prescribed from the ED for sub jective pain. Past Medical & Surgical History: Primary Care Provider (PCP) is CRUZITO GUTIÉRREZ DO at [phone] . Notify PCP if giving any additional narcotics for objective findings. PCP supports enrollment in the [place] nsistent Care Program. Medical History: 1. Diabetes-He is on a sliding scale after meals, routine insulin before meals and takes La ntus at night. A1C April, = 7.9%. He was referred to an director data architecture in February, 4. 2. Chest Pain- Coronary [...] the GE junction (requiring managem ent in [place] at ), rectal ulcer and internal hemorrhoids. 10. Hernia- He has been referred to Dr. Vargas. Problem List: He needs to make regular visits to see his PCP in light of his chronic conditions. He estab lished in February, but he never returned as requested. This patient is developmentally delayed and has multiple chronic conditions and providers. He would benefit from having a Platform Mill Supervisor assist him in coordinating his care. He does not see his PCP like he should. History of Behavioral Health Conditions: He has depression and anxiety- This is managed by his PCP. He takes Paxil and abilify. He has been referred to [facility] in February. According to [facility], he never establish ed care. Please follow-up with him and assist him in making another appointment to establish care. Pain/Opioid Agreement: Kevyn has an order at the Assisted Living Facility for hydrocodone as needed. He does not h ave a diagnosis of chronic pain. Please see ACTIVITIES VOLUNTEER for prescribing history. Social History or Identified Risk: - Fall Risk - Non adherence - Transportation Issues Social History: Kevyn lives at [facility] . He may require another level of care given the number of ED visits at [facility] (22 in the last year)-please contact his [facility] C ase Photocopying Machine Operator (Fermin Preston) to discuss. Kevyn is developmentally delayed- Patient may benefit from having someone with him at his d octor's appointments. He has applied for D[employer]-A-Ride services (April,) Applied for a Health Home for this client through [facility]- please review Provider One to determ ine if one has been assigned. Additional Information: This patient is case managed by the [facility] Program. Please contact the sales development associate at your hospital for any immediate or post ED discharge needs this patient may have. Please contact Tari wolff [facility] at when patient pr esents to ED. You may also contact for additional information These are guidelines and the provider should exercise clinical judgment when providing care . Last Modified by Tari Don on Dec 11, 2013 docume nted in this encounter ED Notes Conversion Transaction, Provider Unknown - 12/15/2013 6:14 AM PSTFormatting of this note m ight be different from the original. ED Notes by Suresh Marin RN at 12/15/13613 Author: Suresh Marin RN Service: (none) Author Type: Registered Nurse Filed: 12/15/13613 Date of Service: 12/15/13613 Status: Signed Marketing Writer: Suresh Marin RN (Registered Nurse) Pt awake alert , in no acute distress. Suresh Marin RN 12/15/13613 onver ivana Transaction, Provider Unknown - 12/15/2013 4:28 AM PST ED Notes by Suresh Marin RN at 12/15/13427 Author: Suresh Marin RN Service: (none) Author Type: Registered Nurse Filed: 12/15/13428 Date of Service: 12/15/13427 Status: Signed Marketing Writer: Suresh Marin RN (Registered Nurse) Pt intermittently awake. Pt states' i feel better than i did yesterday" Suresh Marin RN 12/15/13428 iMary higuera ARNP - 12/15/2013 1:45 AM PSTFormatting of this note might be different from th e original. ED Provider Notes by CITLALY Morrow at 12/15/13144 Author: CITLALY Morrow Service: Emergency Department Author Type: Advanced Omar tered Nurse Practitioner Filed: 12/15/13 0437 Date of Service: 12/15/13144 Status: Attested Marketing Writer: CITLALY Morrow (Advanced Registered Nurse Practitioner) Cosigner: Yesica Flowers DO at 12/18/132012 Attestation signed by Yesica Flowers DO at 12/18/132012 EK Sinus rhythm without ectopics. Rate: 70 Normal P wave, RICHARD Normal QRS axis in limb leads, normal QRS Normal ST and T waves Since previous tracing no significant change Interpreted by myself at time of service. I agree with the evaluation and management, I have read the note. We have discussed the nicholas e. Procedures [facility] Department of Emergency Medicine HPI History of Present Illness Patient Identification Kevyn Guzman is a 57 y.o. male. Patient information was obtained from patient, EMS personnel and shelter. History/Exam limitations: none. Patient presented to the Emergency Department by: Ambulance Chief Complaint Chief Complaint Patient presents with Fall The patient complains of getting up to use the bathroom and becoming dizzy and falling. Ons et of symptoms was around midnight, with a continued course since that time. The symptoms a re described to be of jcgy-yt-hvrnryac severity. The patient also complains of right neck an d head pain and nauseated. The patient describes the quality and location of the symptoms a s the following: Sharp pain to right side of neck and right side of head. Patient denies lo sing consciousness, states he got himself back to bed and called for help at the assisted [facility] facility. Care prior to arrival consisted of coming here by EMS, with no relief. Pat ient states he does fall a lot and takes medication to help with his dizziness. Denies any shortness of breath, palpitations, chest pain, vomiting, abdominal pain, fever, chills. Den ies any visual disturbances. Past Medical History Diagnosis Date Diabetes mellitus [...] - CHOLECYSTECTOMY; Surgeon: Jevon Vargas DO; Location: [facility] MAIN OR; Service: General; 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; Abdominal surgery Cholecystectomy Skin cancer excision 10/10/2012 Procedure: EXCISION - SKIN CANCER; Surgeon: yS Fierro MD; Location: [facility] MAIN OR ; Service: Plastics; Laterality: Left; upper arm and upper back w/frozen section Esophagogastroduodenoscopy 03/03/2013 Procedure: ESOPHAGOGASTRODUODENOSCOPY; Surgeon: Howie Gibson MD; Location: [facility] ENDOSCOPY; S ervice: Gastroenterology; 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; Colonoscopy 03/04/2013 Procedure: COLONOSCOPY; Surgeon: Howie Gibson MD; Location: [facility] ENDOSCOPY; Service: Gastroe nterology; 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; Upper gastrointestinal endoscopy Skin biopsy Hernia repair 07/03/2013 Procedure: LAPAROSCOPIC - HERNIA - INCISIONAL; Surgeon: Jevon Vargas DO; Location: [facility] MAIN OR; Service: General; 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; Prior to Admission medications Medication Sig Start Date End Date Taking? Authorizing Provider Albuterol Sulfate (VENTOLIN HFA IN) Inhale 2 puffs into the lungs as needed. Historical Provider Lhjef-L-Bldtfkznixrlh (BEANO) TABS Take 150 Units by mouth [...] 100 mg by mouth nightly. Historical Provider vyavuakev-oubrledo-uzbyvactb hydroxide-simethicone Take 40 mLs by mouth daily [...] on file Social History Narrative Lives in prison, IADL, full code Family History Problem Relation Age of Onset Heart disease Father Heart disease Sister Diabetes type II Sister Heart Problems Brother ROS Review of Systems Constitutional: Negative for: fever, chills, fatigue, sweats or weight loss Cardiovascular/Respiratory: Negative for: chest pain, shortness of breath, cough Gastrointestinal: Negative for: abdominal pain, vomiting, diarrhea, black or bloody stools Positive for: Nausea Genitourinary: Negative for: dysuria, hematuria, urinary problems Musculoskeletal: Negative for: myalgias and arthralgias Positive for: Right neck pain Skin: Negative for: laceration or lesion Neuro and psych: Negative for: fainting, seizure, trouble walking Positive for: Dizziness, fall, headache Physical Exam Physical Exam BP 168/79 | Pulse 81 | Temp(Src) 97.4 F (36.3 C) (Oral) | Resp 15 | Wt 109.77 kg (242 l b) | BMI 33.77 kg/m2 | SpO2 92% BP 139/73 | Pulse 74 | Temp(Src) 96.9 F (36.1 C) (Oral) | Resp 14 | Wt 109.77 kg (242 l b) | BMI 33.77 kg/m2 | SpO2 92% Pulse Oximetry interpretation: Normal, Vital signs: Elevated blood pressure, oxygen saturat ion low side of normal, otherwise normal. Repeat vital signs slightly elevated blood pressu re, improved from initial, oxygen continues lower side of normal and saturations (asleep), o therwise normal General: Alert, related 3 in mild apparent distress, nontoxic, well-appearing Eyes: Normal inspection, pupils equal and round 2 mm bilaterally, non-icteric, EOMs intact , no nystagmus ENT: Nose normal -no rhinorrhea Neck: Normal inspection Supple No meningismus Cardiovascular: Rate and rhythm normal No murmurs Respiratory: Breath sounds normal bilaterally, symmetrical chest rise and fall, unlabored r espirations Abdomen: Soft, non-tender, non-distended No guarding or rebound Back: Normal inspection, no vertebral tenderness Skin: Color normal Warm and dry No rash Neuro: No motor deficit No sensory deficit GCS 15 CN 2-12 grossly intact ED Course Medical Decision Making and Emergency Department Course ED Department Course 0145--Care initiated After introducing myself to the patient, I have performed a careful history and physical ex amination. I have formulated the differential diagnosis that needs to be addressed during t his Emergency Room visit, briefly discussed this differential with the patient which is clos ed head injury, intracranial hemorrhage, skull fracture, cervical fracture/strain, soft tiss ue injury, UTI, metabolic abnormality, AMI, arrhythmia, dehydration, orthostatic hypotension , or other unknown cause of fall besides gait instability/mechanical fall and dizziness from getting up quickly to use bathroom in middle of night, and other. I then discussed with them the plan of care. I have also addressed the risks and benefits of all diagnostic and treatment modalities planned for this ED visit. 0151-I will order a CT of head and C-spine, cardiac panel, troponin, EKG, urine screen and Zofran for nausea with IV fluid resuscitation 0230-patient transferred to CT 0300-patient medicated 0345--urine which race blood, no evidence of UTI, negative troponin, no leukocytosis. [place] bolic panel unremarkable except mild hypocalcemia 8.[address] head and C-spine with no acute abnormality. 0355-rechecked patient and he is sleeping soundly. Woke up and he states he feels improved . Acting appropriately and no confusion. No further nausea or vomiting. 0408- discharge instructions written. Will order Tylenol and ibuprofen for neck/head pain upon discharge as he is now awake. Take Tylenol and ibuprofen for pain Make follow-up with your primary care provider for recheck Return here for worsening symptoms as we discussed Wrap up Adult I have discussed my clinical impression and treatment plan with the patient. We have speci fically discussed the signs and symptoms that would constitute the need for an immediate ret urn to the Emergency Department, the importance of continued outpatient follow up and furthe r testing (if deemed necessary by the patient's regular doctor) and the importance of compli ance with the discharge instructions. I have answered any questions that the patient has to the best of my ability. Based upon the patient s history, physical exam, emergency depar tment course, and any laboratory and diagnostic studies which may have been performed, I fee l that there is no current emergent medical condition that warrants admission, transfer, or further emergency department treatment at this time. Records Reviewed Old medical records. Nursing notes. Ambulance run sheet. Previous radiology studies. Labs & Radiology Results Laboratory Evaluation Results Procedure Component Value Ref Range Date/Time Cardiac Panel [[id number]] (Abnormal) Collected: 12/15/13209 Order Status: Completed Updated: 12/15/13323 WBC 9.6 3.8 - 11.0 K/uL RBC 4.59 4.20 - 5.70 M/uL HGB 12.3 (L) 13.2 - 17.0 g/dL HCT 37.2 (L) 39.0 - 50.0 % MCV 80.9 80.0 - 100.0 fl MCH 26.7 (L) 27.0 - 34.0 pg MCHC 33.0 32.0 - 35.5 g/dL RDW SD 41.6 37 - 53 fl PLT 244 150 - 400 K/uL MPV 7.8 fl DIFF TYPE AUTOMATED NEUTROPHILS 61.1 % LYMPHOCYTES 24.9 % MONOCYTES 8.8 % EOSINOPHILS 4.4 % BASOPHILS 0.8 % NEUTROPHILS ABS 5.9 1.9 - 7.4 K/uL LYMPHOCYTES ABS 2.4 1.0 - 3.9 K/uL MONOCYTES ABS 0.9 (H) 0 - 0.8 K/uL EOSINOPHILS ABS 0.4 0 - 0.5 K/uL BASOPHILS ABS 0.1 0 - 0.1 K/uL SODIUM 141 135 - 143 mmol/L POTASSIUM 3.7 3.5 - 4.9 mmol/L CHLORIDE 106 99 - 109 mmol/L CO2 31 23 - 32 mmol/L ANION GAP AGAP 8 5 - 20 mmol/L GLUCOSE 268 (H) 65 - 99 mg/dL BUN 16 8 - 25 mg/dL CREATININE 1.09 0.70 - 1.30 mg/dL BUN/CREAT 15 CALCIUM 8.3 (L) 8.5 - 10.2 mg/dL TOTAL PROTEIN 6.5 6.3 - 8.2 g/dL Albumin 2.9 (L) 3.6 - 5.0 g/dL GLOBULIN 3.6 1.3 - 4.9 g/dL A/G 0.8 (L) 1.0 - 2.4 TBIL 0.2 0.1 - 1.5 mg/dL ALK PHOS 92 35 - 115 U/L AST 19 10 - 45 U/L ALT 22 10 - 65 U/L EGFR >60 >60 mL/min/1.73m2 CPK 93 55 - 400 U/L INR 1.0 APTT 24 23 - 32 seconds MMB 2.7 0.5 - 3.6 ng/mL CK-MB Index 2.9 Troponin I, Lab [[id number]] Collected: 12/15/13209 Order Status: Completed Updated: 12/15/13301 Specimen Information: Blood TROPONIN I 0.022 0.00 - 0.10 ng/mL POC clinitek 10 [[id number]] (Abnormal) Collected: 12/15/13215 Order Status: Completed Updated: 12/15/13223 Color, UA YELLOW Clarity, UA CLEAR Glucose, UA 100 (A) NEGATIVE mg/dL Bilirubin, UA NEGATIVE NEGATIVE Ketones, UA NEGATIVE NEGATIVE mg/dL Spec Grav, UA 1.020 1.001 - 1.035 Blood, UA TRACE (A) NEGATIVE pH, UA 6.5 4.6 - 8.0 Protein, UA NEGATIVE NEGATIVE mg/dL Urobilinogen, UA 0.2 <1.1 mg/dL Nitrite, UA NEGATIVE NEGATIVE WBC, UA NEGATIVE NEGATIVE Radiology and EKG Evaluation Imaging Results CT Head and C-Spine Non-Con (Final result) Result time: 12/15/13 03:04:31 Preliminary result by Rad Results In Richard (12/15/13 03:04:31) Impression: Head CT: 1. No acute intracranial abnormality. Cervical Spine CT: 1. No acute cervical spine abnormality. [facility] Read by Hermes Lopez MD on Dec 15 2013 3:04AM Final result by Rad Results In Richard (12/15/13 03:04:27) Impression: Head CT: 1. No acute intracranial abnormality. Cervical Spine CT: 1. No acute cervical spine abnormality. [facility] Electronically signed by Hermes Lopez MD on Dec 15 2013 3:04AM Referring Provider Line: [phone] ID: [id number] Narrative: EXAM: CT HEAD AND CERVICAL SPINE EXAM DATE: 12/15/2013 02:35 AM. CLINICAL HISTORY: Pain after injury. Nausea. COMPARISON: 12/04/2013 and 10/05/2013. TECHNIQUE: Noncontrast axial sections through the head and cervical spine. Reformats: Coron al and sagittal of the cervical spine. FINDINGS CT HEAD: There is mild atrophy and small vessel disease. No mass, mass effect, or midline shift is s een. No intracranial hemorrhage or extra-axial fluid collections are noted. Bone windows do not demonstrate a depressed skull fracture. FINDINGS CT CERVICAL SPINE: Alignment: No dislocation or spondylolisthesis seen. Bones: No fracture or bone lesion. Interspace Levels/Facets: Disk spaces are relatively well-preserved for age. Facet joints and neural foramina are int act. Other: No prevertebral soft tissue swelling. Mild bilateral carotid artery calcifications. Diagnosis & Disposition ED Diagnoses Final diagnoses Fall, initial encounter Headache Neck pain on right side Nausea Disposition: ED Disposition Discharge Condition at discharge: Stable Follow-up Information Follow up With Details Comments Contact Info Jerrell Gutiérrez DO Call Make follow-up with your primary care provider for recheck [address] [phone] [facility] Emergency Department Return here for worsening symptoms as we discussed [address] [facility] [address] Discharge Medications: New Prescriptions No new medications CITLALY Rosario 12/15/13 0437 Yesica Flowers DO 12/18/132012 documented in thi s encounter Plan of Treatment +--------+---------+ + + + | Date | Type | Specialty | Care Team | Description | +--------+---------+ + + + | 09/10/ | Office | Geriatric Medicine | Mireya Pack, | | | 2019 | Visit | | MECHANICAL SPREADER OPERATOR [address] | | | | | | [address] [place], | | | | | | [place] [address] | | | | | | [phone] | | | | | | | | +--------+---------+ + + + | 09/29/ | Office | Urology | Mireya Pack, | | | 2019 | Visit | | MECHANICAL SPREADER OPERATOR [address] | | | | | | [address] [place], | | | | | | [place] [address] | | | | | | [phone] | | | | | | | | | | | | Toy Wild, DO | | | | | | [address] | | | | | | [place] [address] | | | | | | [phone] | | | | | | | | +--------+---------+ + + + documented as of this encounter Procedures + +--------+ + + + | Procedure Name | Priori | Date/Time | Associated Diagnosis | Comments | | | ty | | | | + +--------+ + + + | CT HEAD CERVICAL | Routin | 12/15/2013 | | Results for this | | SPINE WO CONTRAST | e | 2:34 AM | | procedure are in the | | | | PST | | results section. | + +--------+ + + + | HISTORICAL LAB PANEL | Routin | 12/15/2013 | | Results for this | | RESULT | e | 2:10 AM | | procedure are in the | | | | PST | | results section. | + +--------+ + + + | TROPONIN I | Routin | 12/15/2013 | | Results for this | | | e | 2:10 AM | | procedure are in the | | | | PST | | results section. | + +--------+ + + + | ECG 12 LEAD | Routin | 12/15/2013 | | Results for this | | | e | 2:07 AM | | procedure are in the | | | | PST | | results section. | + +--------+ + + + documented in this encounter Results CT Head Cervical Spine wo Contrast (12/15/2013 2:34 AM PST) + + | Specimen | + + | | + + + + + | Impressions | Performed At | + + + | Head CT: 1. No acute intracranial abnormality. Cervical Spine | | | CT: 1. No acute cervical spine abnormality. [facility] | | | Electronically signed by eHrmes Lopez MD on Dec 15 2013 3:04AM | | | Referring Provider Line: [phone] ID: [id number] | | + + + + + + | Narrative | Performed At | + + + | EXAM: CT HEAD AND CERVICAL SPINE EXAM DATE: 12/15/2013 02:35 AM. | | | CLINICAL HISTORY: Pain after injury. Nausea. COMPARISON: | | | 12/04/2013 and 10/05/2013. TECHNIQUE: Noncontrast axial sections | | | through the head and cervical spine. Reformats: Coronal and sagittal | | | of the cervical spine. FINDINGS CT HEAD: There is mild atrophy | | | and small vessel disease. No mass, mass effect, or midline shift is | | | seen. No intracranial hemorrhage or extra-axial fluid collections are | | | noted. Bone windows do not demonstrate a depressed skull fracture. | | | FINDINGS CT CERVICAL SPINE: Alignment: No dislocation or | | | spondylolisthesis seen. Bones: No fracture or bone lesion. | | | Interspace Levels/Facets: Disk spaces are relatively well-preserved | | | for age. Facet joints and neural foramina are intact. Other: No | | | prevertebral soft tissue swelling. Mild bilateral carotid artery | | | calcifications. | | + + + + + | Procedure Note | + + | Joaquin Ramos Conversion - 09/21/2018 3:31 PM PDT EXAM:CT HEAD AND CERVICAL SPINEEXAM | | DATE: 12/15/2013 02:35 AM. CLINICAL HISTORY: Pain after injury. Nausea. COMPARISON: | | 12/04/2013 and 10/05/2013. TECHNIQUE: Noncontrast axial sections through the head and | | cervical spine. Reformats: Coronal and sagittal of the cervical spine. FINDINGS CT | | HEAD:There is mild atrophy and small vessel disease. No mass, mass effect, or midline | | shift is seen. No intracranial hemorrhage or extra-axial fluid collections are noted. | | Bone windows do not demonstrate a depressed skull fracture. FINDINGS CT CERVICAL | | SPINE:Alignment: No dislocation or spondylolisthesis seen. Bones: No fracture or bone | | lesion. Interspace Levels/Facets:Disk spaces are relatively well-preserved for age. | | Facet joints and neural foramina are intact. Other: No prevertebral soft tissue | | swelling. Mild bilateral carotid artery calcifications. IMPRESSION: Head CT:1. No acute | | intracranial abnormality.Cervical Spine CT:1. No acute cervical spine abnormality. | | [facility] Electronically signed by Hermes Lopez MD on Dec 15 2013 3:04AM Referring | | Provider Line: [phone] ID: [id number] | |Alignment: No dislocation or spondylolisthesis seen. | | | |Bones: No fracture or bone lesion. | | | |Interspace Levels/Facets: | |Disk spaces are relatively well-preserved for age. Facet joints and neural foramina are int act. | | | |Other: No prevertebral soft tissue swelling. Mild bilateral carotid artery calcifications. | | | |IMPRESSION: | | | |Head CT: | |1. No acute intracranial abnormality. | |Cervical Spine CT: | |1. No acute cervical spine abnormality. | | | |[facility] | | | | Electronically signed by Hermes Lopez MD on Dec 15 2013 3:04AM Referring Provider Line: [phone] ID: [id number] | + + HISTORICAL LAB PANEL RESULT (12/15/2013 2:10 AM PST) + + + + + -+ | Component | Value | Ref Range | Performed | Pathologist | | | | | At | Signature | + + + + + -+ | WBC | 9.6Comment: Testing | 3.8 - 11.0 K/uL | EXTERNAL | | | | performed at [facility];[address] | | LAB | | | | [address];[place] | | | | | | [address] | | | | + + + + + -+ | Non- | 4.59Comment: Testing | 4.20 - 5.70 | EXTERNAL | | | Red Blood | performed at [facility];888 | M/uL | LAB | | | Cells | [address];[place] | | | | | Counted | [id number] | | | | + + + + + -+ | Hemoglobin | 12.3 (L)Comment: Testing | 13.2 - 17.0 | EXTERNAL | | | | performed at [facility];888 | g/dL | LAB | | | | [address];[place] | | | | | | [address] | | | | + + + + + -+ | Hematocrit, | 37.2 (L)Comment: Testing | 39.0 - 50.0 % | EXTERNAL | | | POC | performed at [facility];[address] | | LAB | | | | [address];[place] | | | | | | [address] | | | | + + + + + -+ | MCV | 80.9Comment: Testing | 80.0 - 100.0 fl | EXTERNAL | | | | performed at [facility];[address] | | LAB | | | | [address];[place] | | | | | | [address] | | | | + + + + + -+ | MCH | 26.7 (L)Comment: Testing | 27.0 - 34.0 pg | EXTERNAL | | | | performed at [facility];[address] | | LAB | | | | [address];[place] | | | | | | [address] | | | | + + + + + -+ | MCHC | 33.0Comment: Testing | 32.0 - 35.5 | EXTERNAL | | | | performed at [facility];888 | g/dL | LAB | | | | [address];[place] | | | | | | [address] | | | | + + + + + -+ | RDW-CV | 41.6Comment: Testing | 37 - 53 fl | EXTERNAL | | | | performed at [facility];[address] | | LAB | | | | [address];[place] | | | | | | [address] | | | | + + + + + -+ | Platelet | 244Comment: Testing | 150 - 400 K/uL | EXTERNAL | | | Count | performed at [facility];[address] | | LAB | | | Plasma | [address];[place] | | | | | | [address] | | | | + + + + + -+ | MPV | 7.8Comment: Testing | fl | EXTERNAL | | | | performed at [facility];[address] | | LAB | | | | [address];[place] | | | | | | [address] | | | | + + + + + -+ | Differentia | AUTOMATEDComment: | | EXTERNAL | | | l Type | Testing performed at | | LAB | | | | [facility];[address];[place] [address] | | | | + + + + + -+ | % Segmented | 61.1Comment: Testing | % | EXTERNAL | | | | performed at [facility];[address] | | LAB | | | Neutrophils | [address];[place] | | | | | | [address] | | | | + + + + + -+ | % | 24.9Comment: Testing | % | EXTERNAL | | | Lymphocytes | performed at [facility];[address] | | LAB | | | | [address];[place] | | | | | | [address] | | | | + + + + + -+ | % Monocytes | 8.8Comment: Testing | % | EXTERNAL | | | | performed at [facility];[address] | | LAB | | | | [address];[place] | | | | | | [address] | | | | + + + + + -+ | % | 4.4Comment: Testing | % | EXTERNAL | | | Eosinophils | performed at [facility];[address] | | LAB | | | | [address];[place] | | | | | | [address] | | | | + + + + + -+ | % Basophils | 0.8Comment: Testing | % | EXTERNAL | | | | performed at [facility];[address] | | LAB | | | | [address];[place] | | | | | | [address] | | | | + + + + + -+ | Absolute | 5.9Comment: Testing | 1.9 - 7.4 K/uL | EXTERNAL | | | Segmented | performed at [facility];[address] | | LAB | | | Neutrophils | [address];[place] | | | | | | [address] | | | | + + + + + -+ | Absolute | 2.4Comment: Testing | 1.0 - 3.9 K/uL | EXTERNAL | | | Lymphocytes | performed at [facility];[address] | | LAB | | | | [address];[place] | | | | | | [address] | | | | + + + + + -+ | Absolute | 0.9 (H)Comment: Testing | 0 - 0.8 K/uL | EXTERNAL | | | Monocytes | performed at [facility];[address] | | LAB | | | | [address];[place] | | | | | | [address] | | | | + + + + + -+ | Absolute | 0.4Comment: Testing | 0 - 0.5 K/uL | EXTERNAL | | | Eosinophils | performed at [facility];[address] | | LAB | | | | [address];[place] | | | | | | [address] | | | | + + + + + -+ | Absolute | 0.1Comment: Testing | 0 - 0.1 K/uL | EXTERNAL | | | Basophils | performed at [facility];[address] | | LAB | | | | [address];[place] | | | | | | [address] | | | | + + + + + -+ | Na | 141Comment: Testing | 135 - 143 | EXTERNAL | | | | performed at [facility];888 | mmol/L | LAB | | | | [address];[place] | | | | | | [address] | | | | + + + + + -+ | K | 3.7Comment: Testing | 3.5 - 4.9 | EXTERNAL | | | | performed at [facility];[address] | mmol/L | LAB | | | | [address];[place] | | | | | | [address] | | | | + + + + + -+ | Cl | 106Comment: Testing | 99 - 109 mmol/L | EXTERNAL | | | | performed at [facility];[address] | | LAB | | | | [address];[place] | | | | | | [address] | | | | + + + + + -+ | CO2 | 31Comment: Testing | 23 - 32 mmol/L | EXTERNAL | | | | performed at [facility];[address] | | LAB | | | | [address];[place] | | | | | | [address] | | | | + + + + + -+ | Anion Gap | 8Comment: Testing | 5 - 20 mmol/L | EXTERNAL | | | | performed at [facility];[address] | | LAB | | | | [address];[place] | | | | | | [address] | | | | + + + + + -+ | Glucose, | 268 (H)Comment: Testing | 65 - 99 mg/dL | EXTERNAL | | | Fasting | performed at [facility];[address] | | LAB | | | | [address];[place] | | | | | | [address] | | | | + + + + + -+ | BUN | 16Comment: Testing | 8 - 25 mg/dL | EXTERNAL | | | | performed at [facility];[address] | | LAB | | | | [address];[place] | | | | | | [address] | | | | + + + + + -+ | Creatinine | 1.09Comment: Testing | 0.70 - 1.30 | EXTERNAL | | | | performed at [facility];[address] | mg/dL | LAB | | | | [address];[place] | | | | | | [address] | | | | + + + + + -+ | BUN/Creatin | 15Comment: Testing | | EXTERNAL | | | ine Ratio | performed at [facility];[address] | | LAB | | | | [address];[place] | | | | | | [address] | | | | + + + + + -+ | Calcium | 8.3 (L)Comment: Testing | 8.5 - 10.2 | EXTERNAL | | | | performed at [facility];888 | mg/dL | LAB | | | | [address];[place] | | | | | | [address] | | | | + + + + + -+ | Protein, | 6.5Comment: Testing | 6.3 - 8.2 g/dL | EXTERNAL | | | Total | performed at [facility];[address] | | LAB | | | | [address];[place] | | | | | | [address] | | | | + + + + + -+ | Albumin | 2.9 (L)Comment: Testing | 3.6 - 5.0 g/dL | EXTERNAL | | | | performed at [facility];[address] | | LAB | | | | [address];[place] | | | | | | [address] | | | | + + + + + -+ | Globulin | 3.6Comment: Testing | 1.3 - 4.9 g/dL | EXTERNAL | | | | performed at [facility];[address] | | LAB | | | | [address];[place] | | | | | | [address] | | | | + + + + + -+ | A/G Ratio | 0.8 (L)Comment: Testing | 1.0 - 2.4 | EXTERNAL | | | | performed at [facility];[address] | | LAB | | | | [address];[place] | | | | | | [address] | | | | + + + + + -+ | Bilirubin | 0.2Comment: Testing | 0.1 - 1.5 mg/dL | EXTERNAL | | | Total | performed at [facility];[address] | | LAB | | | | [address];[place] | | | | | | [address] | | | | + + + + + -+ | ALP, | 92Comment: Testing | 35 - 115 U/L | EXTERNAL | | | External | performed at [facility];[address] | | LAB | | | | [address];[place] | | | | | | [address] | | | | + + + + + -+ | AST | 19Comment: Testing | 10 - 45 U/L | EXTERNAL | | | | performed at [facility];[address] | | LAB | | | | [address];[place] | | | | | | [address] | | | | + + + + + -+ | ALT | 22Comment: Testing | 10 - 65 U/L | EXTERNAL | | | | performed at [facility];[address] | | LAB | | | | [address];[place] | | | | | | [address] | | | | + + + [...] | | | | | | at [facility];[address];[place] [address] | | | | + + + + + -+ | CK, Total | 93Comment: Testing | 55 - 400 U/L | EXTERNAL | | | | performed at [facility];[address] | | LAB | | | | [address];[place] | | | | | | [address] | | | | + + + [...] | | | | | performed at [facility];[address] | | | | | | [address];[place] | | | | | | [address] | | | | + + + + + -+ | aPTT, | 24Comment: Testing | 23 - 32 seconds | EXTERNAL | | | Patient | performed at [facility];[address] | | LAB | | | | [address];[place] | | | | | | [address] | | | | + + + + + -+ | CK-MB | 2.7Comment: Testing | 0.5 - 3.6 ng/mL | EXTERNAL | | | | performed at [facility];[address] | | LAB | | | | [address];[place], [place] | | | | | | [address] | | | | + + + + + -+ | CK-MB Index | 2.9Comment: CK INDEX | | EXTERNAL | | [...] | + +---------+ + + Troponin I (12/15/2013 2:10 AM PST) + + + + + + | Component | Value | Ref Range | Performed | Pathologist | | | | | At | Signature | + + + + + + | Troponin I, | 0.022Comment: 0.00 to | 0.00 - 0.10 | [...] | | | | | | ACUTE [facility] Testing | | | | | | performed at [facility];[address] | | | | | | [address];[place], [place] | | | | | | [address] | | | | + + + [...] + +---------+ + + ECG 12 lead (12/15/2013 2:07 AM PST) + + + + + + | Component | Value | Ref Range | Performed | Pathologist | | | | | At | Signature | + + + + + + | DIAGNOSIS: | Normal sinus | | EXTERNAL | | | | rhythmNonspecific T wave | | LAB | | | | abnormalityProlonged | | | | | | QTAbnormal ECGWhen | | | | | | compared with ECG of | | | | | | 04-DEC-2013 11:43,T wave | | | | | | inversion no longer | | | | | [...] | | | | | ONLY, -COMPUTER ([id number]), | | | | | | 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
--- OUTSIDE RECORDS SUMMARY | ~2019-09-09 | XMS | Encounter Summary ---
Demographics + + + | Address | [address] | | | [place] [address] | + + + | Home Phone | | + + + | Preferred Language | Unknown | + + + | Marital Status | | + + + | Mosque Affiliation | 1027 | + + + | Race | Unknown | + + + | Ethnic Group | Unknown | + + + Author + + + | Author | [facility] | | | and [place] | + + + | Organization | [facility] | | | and [place] | + + + | Address | Unknown | + + + | Phone | Unavailable | + + + Support + + + + + | Name | Relationship | Address | Phone | + + + + + | Sammi Kohler | ECON | [place] [address] | | + + + + + Care Team Providers + +------+ + | Care Fermentation Manager Name | Role | Phone | + +------+ + PCP | Unavailable | + +------+ + Encounter Details +--------+ + + + + | Date | Type | Department | Care Team | Description | +--------+ + + + + | 01/16/ | Emergency | [facility] | Martell Gold | History of | | 2018 | | [facility]ENTER | MD [address] | palpitations; | | | | EMERGENCY CENTER | MASSIMO GARRICK | Chronic atrial | | | | [address] | [place] [address] | fibrillation (HCC); | | | | [place], [place] | [phone] | Hyperglycemia; | | | | [address] | | Atypical chest pain | | | | [phone] | | | +--------+ + + + [...] this encounter Last Filed Vital Signs + +---------+ + + | Vital Sign | Reading | Time Taken | Comments | + +---------+ + + | Blood Pressure | 173/84 | 01/16/2018 8:52 PM | | | | | PST | | + +---------+ + + | Pulse | 66 | 01/16/2018 8:52 PM | | | | | PST | | + +---------+ + + | Temperature | - | - | | + +---------+ + + | Respiratory Rate | 16 | 01/16/2018 8:52 PM | | | | | PST | | + +---------+ + + | Oxygen Saturation | - | - | | + +---------+ + + | Inhaled Oxygen | - | - | | | Concentration | | | | + +---------+ + + | Weight | - | - | | + +---------+ + + | Height | - | - | | + +---------+ + + | Body Mass Index | - | - | | + +---------+ + + documented in this encounter Medications at Time of Discharge + + + +---------+ + + | Medication | Sig | Dispensed | Refills | Start | End Date | | | | | | Date | | + + + +---------+ + + | lisinopril | Take 1 tablet by | 60 | 0 | 10/19/19 | | | (PRINIVIL,ZESTRIL) | mouth daily for 30 | tablet | | 18 | 9 | | 40 MG tablet | days. | | | | [...] Progress Notes Conversion Transaction, Provider Unknown - 01/16/2018 8:43 PM PSTFormatting of this note m ight be different from the original. Case Management by González Soni MS, MSW at 01/16/182042 Author: González Soni MS, MSW Service: (none) Author Type: Motor Polarizer Filed: 01/16/182043 Date of Service: 01/16/182042 Status: Signed Egg Candler: González Soni, MS, TECHNICAL OPERATIONS SPECIALIST (Motor Polarizer) Referral from nursing for transportation needs. Pt needing ride, no one is available to pic k up patient. Unable to verify if pt has medicaid transport benefit, none listed on face she et. [facility] star cab called for ED waiting lobby. Arrive in 30 minutes. [facility] billed. docume nted in this encounter ED Notes Martell Gold MD - 01/16/2018 6:25 PM PST ED Provider Notes by Martell Gold MD at 01/16/181824 Author: Martell Gold MD Service: Emergency Department Author Type: Physician Filed: 01/17/181825 Date of Service: 01/16/181824 Status: Signed Egg Candler: Martell Gold MD (Physician) [facility] Emergency Department Provider Note Name: Kevyn Guzman Date: 01/16/18 : 1955 Room Number: 09/13 PCP: Per PT None Medical Decision Making This 62 y.o. male patient presents to ED with complaints of chest pain. Onset of symptoms was earlier today, with a constant course since that time. The symptoms are described to b e of modecate severity. Will order labs, CXR AP and reevaluate the patient. After introducing myself to the patient, I have performed a careful history and physical ex amination. I have formulated the differential diagnosis that needs to be addressed during t his Emergency Department visit, briefly discussed this differential with the patient and/or family, and then discussed with them the plan of care. I have also addressed the risks and benefits of all diagnostic and treatment modalities planned for this ED visit 8:19 PM Patient reevaluation. Patient is stable and feeling better at this time. I have di scussed my clinical impression and treatment plan with the patient and/or family, along with ED Lab and/or imaging results that were obtained during this ED visit. We have specifically discussed the signs and symptoms that would necessitate immediate return to the Emergency D epartment. I have discussed the progression of illness and possible need for return here to emergency department . I have also discussed the importance of continued outpatient follow u p with a primary care provider and/or specialist. To the best of my ability I have answered the patient's questions. Based upon the patient s history, physical exam, emergency depa rtment course, and any laboratory and diagnostic studies performed, I feel that there is no current emergent medical condition that warrants admission, transfer, or further emergency d epartment treatment at this time. Patient agrees to discharge plan and had no further quest ions. We have discussed s/s that would necessitate an immediate return visit to the ED. No d ecompensation or new symptoms observed or reported during visit. Will discharge home. Clinical Impression and Plan ED Diagnoses Final diagnoses History of palpitations Chronic atrial fibrillation (HCC) Hyperglycemia Atypical chest pain ED Disposition ED Disposition Condition Comment Orders Discharge Stable Recheck blood sugar before discharge Discharge Medication List as of 01/16/2018 8:53 PM Follow-up Information Follow up With Specialties Details Why Contact Info Per Pt None Schedule an appointment as soon as possible for a visit As needed, to follow up [facility] Emergency Department Emergency Medicine Go to If symptoms worsen [address] [place] [id number] Extended ED Note Patient information was obtained from patient. History/Exam limitations: none. Patient presented to the Emergency Department by: Cheshirevarun Palmer 2824 CC: Chief Complaint Patient presents with Chest Pain Method of Arrival: vera palmer 2824 HPI: Kevyn Guzman is a 62 y.o. male patient Who presents to ED with complaints of chest pain Location:chest Quality:"heart is racing" Severity:moderate Context: patient reports he has a history of Afib and Timing:earlier today around 1 o'clock Duration:constant Modifying factors:Patient reports he has medication for anxiety and took his medication at the onset of his symptoms. The patient also complains of no other symptoms at this time Patient denies any other symptoms Additional old records obtained and reviewed by me: Records Reviewed Old medical records. Nursing notes. Previous ED visits for similar and unrelated complaints. Diagnostics and Procedures I personally reviewed the lab results and they have been posted to the chart. Pertinent po sitive and negative findings have been addressed appropriately. The following tests were ordered and independently interpreted by me: Results Procedure Component Value Ref Range Date/Time Cardiac Panel [[id number]] (Abnormal) Collected: 01/16/181813 Order Status: Completed Updated: 01/16/18 1853 WBC 9.52 3.80 - 11.00 K/uL RBC 5.24 4.20 - 5.70 M/uL HGB 14.7 13.2 - 17.0 g/dL HCT 43.6 39.0 - 50.0 % MCV 83.2 80.0 - 100.0 fl MCH 28.1 27.0 - 34.0 pg MCHC 33.7 32.0 - 35.5 g/dL RDW SD 40.3 37 - 53 fl PLT 246 150 - 400 K/uL MPV 7.9 fl DIFF TYPE AUTOMATED NEUTROPHILS 53.59 % LYMPHOCYTES 30.55 % MONOCYTES 8.92 % EOSINOPHILS 5.80 % BASOPHILS 1.14 % NEUTROPHILS ABS 5.10 1.90 - 7.40 K/uL LYMPHOCYTES ABS 2.91 1.00 - 3.90 K/uL MONOCYTES ABS 0.85 (H) 0.00 - 0.80 K/uL EOSINOPHILS ABS 0.55 (H) 0.00 - 0.50 K/uL BASOPHILS ABS 0.11 (H) 0.00 - 0.10 K/uL SODIUM 138 135 - 145 mmol/L POTASSIUM 3.8 3.5 - 4.9 mmol/L CHLORIDE 101 99 - 109 mmol/L CO2 28 23 - 32 mmol/L ANION GAP AGAP 13 5 - 20 mmol/L GLUCOSE 304 (H) 65 - 99 mg/dL BUN 20 8 - 25 mg/dL CREATININE 1.1 0.70 - 1.30 mg/dL BUN/CREAT 18 CALCIUM 8.7 8.5 - 10.5 mg/dL TOTAL PROTEIN 7.0 6.3 - 8.2 g/dL Albumin 2.9 (L) 3.3 - 4.8 g/dL GLOBULIN 4.1 1.3 - 4.9 g/dL A/G 0.7 (L) 1.0 - 2.4 TBIL 0.3 0.1 - 1.5 mg/dL ALK PHOS 124 (H) 35 - 115 U/L AST 68 (H) 10 - 45 U/L ALT 32 10 - 65 U/L EGFR >60 >60 mL/min/1.73m2 CPK 101 55 - 400 U/L INR 1.0 APTT 23 23 - 32 seconds MMB 2.1 0.5 - 3.6 ng/mL CK-MB Index 2.1 Troponin I, Lab [[id number]] Collected: 01/16/181813 Order Status: Completed Specimen: Blood Updated: 01/16/181852 TROPONIN I 0.02 0.00 - 0.10 ng/mL Cardiac Panel- normal Troponin- negative Radiology and EKG Evaluation Imaging Results XR chest AP portable (Final result) Result time 01/16/18 18:44:32 Final result by Elias Underwood MD (01/16/18 18:44:32) Impression: No evidence of acute disease or active process. No infiltrate or failure Narrative: History:62 years old Male with shortness of breath. Technique: AP upright portable radiographic examination of the chest. 23 October 2016 carleen or study for comparison. Findings: Cardiomediastinum is normal. Lungs are symmetrically inflated without pneumothorax, infiltrate, or effusion. Somewhat lo wer sensitivity due to decreased penetration Bones and soft tissues are normal for age. 12-lead ECG: Time of exam 17:57. Interpreted independently by me. Rate: 73 bpm. Rhythm: sinus rhythm with marked sinus arrhythmia. Ectopy: none. [place]: normal Intervals: CT .15 QRs .86 QTSC .460 Infarct/Ischemia: consider inferior ischemia ED COURSE Consultations and Phone calls I had a bedside discussion with the patient and other members present at bedside. Pertinen t positive and negative findings have been discussed. Patients vital signs have been reviewed prior to discharge Vitals: 01/16/18 1824 01/16/18 1853 01/16/183 01/16/187 BP: 174/85 170/79 172/81 173/84 BP Location: Left upper arm Pulse: 65 66 64 66 Resp: 16 SpO2: 96% 95% 93% 96% Review of Systems Review of Systems Constitutional: Negative for: fever, chills, fatigue Eyes: Negative for: decreased vision or irritated eyes Nose: Negative for: nosebleed Throat: Negative for: sore throat Cardiovascular/Respiratory: Negative for: shortness of breath, cough Positive for: chest pain Gastrointestinal: Negative for: abdominal pain, vomiting, diarrhea Genitourinary: Negative for: dysuria, hematuria, urinary problems Musculoskeletal: Negative for: myalgias and arthralgias Skin: Negative for: laceration or lesion Neuro and psych: Negative for: fainting, head injury Endocrine/Heme/Lymph: Negative for: swollen lymph nodes, easy bruising All other systems otherwise negative. Physical Exam BP 174/85 (BP Location: Left upper arm) | Pulse 65 | Resp 16 | SpO2 96% VS interpretation: hypertensive, otherwise normal. Pulse Oximetry interpretation: Normal General: Alert, in no apparent distress, mildly unkempt, wearing sandals and no socks with cold weather outside (unusually clothed) Eyes: Normal inspection, non-icteric, non-injected, PERRL, EOMI, no nystagmus ENT: Ears normal, TMs normal Nose normal Pharynx normal Moist mucous membranes No erythema, exudate, or lesions Neck: Normal inspection Supple, no lymphadenopathy Back: Normal inspection CV: Rate and rhythm normal No murmurs Symmetric pulses Respiratory: Bilaterally clear to auscultation No rales, wheezing or rhonchi Abdomen: Soft, non-distended, non-tender No masses, rebound or guarding Normal active bowel sounds Extremities: Non tender, no edema Skin: Color normal Warm and dry No rash Neuro: Alert, no AMS No gross motor/sensory deficits Past Medical, Surgical, Social, and Family History Past Medical History Diagnosis Date Acute pulmonary [...] of GE junction Hypercholesterolemia 07/08/2013 Hyperlipidemia Hypertension residential (current) use of 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 Obesity, Class I, BMI 30-34.9 07/08/2013 WARD (obstructive sleep apnea) 08/11/2012 does not use CPAP because of the noise Other chronic pain Renal failure Stroke (HCC) TIA (transient ischemic attack) Unspecified visual disturbance reading glasses Past Surgical History Procedure Laterality Date ABDOMINAL SURGERY CHOLECYSTECTOMY CHOLECYSTECTOMY, LAPAROSCOPIC N/A 09/12/2012 Procedure: LAPAROSCOPIC - CHOLECYSTECTOMY; Surgeon: Jevon Vargas DO; Location: [facility] MAIN OR; Service: General; 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; COLONOSCOPY COLONOSCOPY N/A 03/04/2013 Procedure: COLONOSCOPY; Surgeon: Howie Gibson MD; Location: [facility] ENDOSCOPY; Service: Gastroen terology; 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; ESOPHAGOGASTRODUODENOSCOPY N/A 03/03/2013 Procedure: ESOPHAGOGASTRODUODENOSCOPY; Surgeon: Howie Gibson MD; Location: [facility] ENDOSCOPY; Se rvice: Gastroenterology; 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; HERNIA REPAIR N/A 07/03/2013 Procedure: LAPAROSCOPIC - HERNIA - INCISIONAL; Surgeon: Jevon Vargas DO; Location: [facility] OR; Service: General; 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; KNEE SURGERY rt knee, patella LEG SURGERY LLE SKIN BIOPSY SKIN CANCER EXCISION Left 10/10/2012 Procedure: EXCISION - SKIN CANCER; Surgeon: Sy Fierro MD; Location: [facility] MA[facility] OR; Service: Plastics; Laterality: Left; upper arm and upper back w/frozen section SKIN LESION EXCISION Left 05/05/2014 Procedure: EXCISION - LESION - FROZEN SECTION; Surgeon: Sy Fierro MD; Location: [facility]; Service: Plastics; Laterality: Left; forearm UNLISTED PROCEDURE ARTHROSCOPY UPPER GASTROINTESTINAL ENDOSCOPY Prior to Admission medications Medication Sig Start Date End Date Taking? Authorizing Provider amLODIPine (NORVASC) 10 MG tablet Take 0.5 tablets by mouth daily. 10/18/17 Yes Bruno Mark MD ARIPiprazole (ABILIFY) 10 MG tablet Take 10 mg by mouth daily. Yes Historical Provider fenofibrate (TRIGLIDE) 160 MG tablet Take 160 mg by mouth daily. Yes Historical Provider gabapentin (NEURONTIN) 100 MG capsule Take 100 mg by mouth every evening. Yes Historical Provider hydrOXYzine (VISTARIL) 25 MG capsule Take 25 mg by mouth 3 (three) times daily as needed fo r Itching. Yes Historical Provider lamoTRIgine (LAMICTAL) 200 MG tablet Take 200 mg by mouth daily. Yes Historical Provider lisinopril (ZESTRIL) 40 MG tablet Take 1 tablet by mouth daily for 30 days. 10/18/17 8 Yes Bruno Burnham MD lithium (LITHOBID) 300 MG CR tablet Take 300 mg by mouth daily. Yes Historical Provider nebivolol (BYSTOLIC) 10 MG tablet Take 10 mg by mouth every evening. Hold for Dizziness and Heart Rate <65 Yes Historical Provider NOVOLOG 100 UNIT/ML injection INJ 3U SUB-Q TID(AC) AND INJECT SUBCUTANEOUSLY PER SLIDING SC SUSAN 1-70= 2U, 71-100=3U, 101-120= 4U, 121-150=5U, 151-180=6U, 181-210= 7U, 211- Patient taking differently: Inject 15 units 3 times a day with meals 04/23/13 Yes Bang bonilla MD omeprazole (PRILOSEC) 20 MG capsule Take 20 mg by mouth 2 (two) times daily with meals. Y es Historical Provider PARoxetine (PAXIL) 20 MG tablet Take 10 mg by mouth daily. 10/06/17 Yes Mik rachel, pravastatin (PRAVACHOL) 80 MG tablet Take 80 mg by mouth nightly. Yes Historical Provider tamsulosin (FLOMAX) 0.4 MG capsule Take 0.4 mg by mouth 2 (two) times daily. Administer 30 minutes after the same meal each day. Capsules should be swallowed whole; do not crush, chew , or open Yes Historical Provider Albuterol Sulfate (VENTOLIN HFA IN) Inhale 2 puffs into the lungs as needed. 108 mcg/act Historical Provider Dizqz-P-Jtgbtcrbkjcdz (BEANO) TABS Take 150 Units by mouth 3 (three) times daily as needed (As needed for gas). Historical Provider antipyrine-benzocaine (AURALGAN) otic solution Place 4 drops into both ears daily. Histo rical Provider apixaban (ELIQUIS) 5 MG tablet Take 1 tablet by mouth 2 (two) times daily. 10/18/17 Bruno Burnham MD aspirin 81 MG tablet Take 81 mg by mouth daily. Historical Provider calcium carbonate (TUMS) 500 MG chewable tablet Take 500-1,000 mg by mouth daily as needed. For GERD Historical Provider clonazePAM (KLONOPIN) 1 MG tablet Take 1 mg by mouth daily. Historical Provider HYDROcodone-acetaminophen (NORCO) 5-325 MG per tablet Take 1 tablet by mouth every 6 (six) hours as needed for Pain. Historical Provider insulin detemir (LEVEMIR) 100 UNIT/ML injection Inject 30 Units into the skin 2 (two) times daily. Inject 45 units subcutaneous at bedtime Patient taking differently: Inject 45 Units into the skin nightly. 10/18/17 Bruno devine MD wsahxszpr-mzqtmofy-ixthpsvxa hydroxide-simethicone Take 40 mLs by mouth daily as needed. Historical Provider Mometasone Furo-Formoterol Fum (DULERA) 100-5 MCG/ACT AERO Inhale 2 puffs into the lungs 2 (two) times daily. Historical Provider nitroGLYCERIN (NITROSTAT) 0.[address] 0.4 mg under the tongue every 5 (five) min utes as needed. Historical Provider ondansetron (ZOFRAN-ODT) 4 MG disintegrating tablet Take 4 mg by mouth every 6 (six) hours as needed for Nausea. Historical Provider polyethylene glycol (GLYCOLAX) powder DISSOLVE 17GM IN LIQUID AND DRINK BY MOUTH EVERY DAY 04/23/13 Bang Yeh MD SPIRIVA HANDIHALER 18 MCG inhalation capsule INHALE THE CONTENTS OF 1 CAPSULE DAILY 8 Mik Diego DO spironolactone-hydrochlorothiazide (ALDACTAZIDE) 25-25 MG per tablet Take 1 tablet by mouth daily. 10/09/17 Historical Provider warfarin (COUMADIN) 4 MG tablet [...] Lives alone x 1 wk, moved from [facility], , 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 2 falls in the last 6 months. Family History Problem Relation Age of Onset Heart disease Father Heart disease Sister Diabetes type II Sister Heart Problems Brother This dictation was crated using voice recognition software and therefore may contain minor security patrol officer errors. The possibility of "sound alike" security patrol officer errors, and additions or deletions may occur . If there is any question, with respect to clarity of the message being conveyed, please c ontact me directly for clarification. Martell Gold MD, FACEP Diplomate [place] [employer] Emergency [employer] Procedures Additional Documentation Procedures Attending Provider Note: IMartell MD personally performed the services describ ed in this documentation, as scribed by Ariel Marrero in my presence, and it is both accurat e and complete. Chart Reviewed and Completed: 01/16/2018 9:18 PM Scribe: I Kari Bailey, scribing for and in the presence of Martell Gold MD. Signed by: Kari Bailey 01/16/2018 9:18 PM Martell Gold MD 01/17/181825 onversion Transdarcy ledesma, Provider Unknown - 01/16/2018 5:54 PM PST ED Notes by Ivonne Hernandez RN at 01/16/181753 Author: Ivonne Hernandez RN Service: (none) Author Type: Registered Nurse Filed: 01/16/181753 Date of Service: 01/16/181753 Status: Signed Egg Candler: Ivonne Hernandez RN (Registered Nurse) Bed: 08 Expected date: Expected time: Means of arrival: Comments: 2824 Ivonne Hernandez RN 01/16/181753 docume nted in this encounter Plan of Treatment +--------+---------+ + + + | Date | Type | Specialty | Care Team | Description | +--------+---------+ + + + | 09/10/ | Office | Geriatric Medicine | Mireya Pack, | | | 2019 | Visit | | PIG MACHINE OPERATOR [address] | | | | | | [address] [place], | | | | | | [place] [address] | | | | | | [phone] | | | | | | | | +--------+---------+ + + + | 09/29/ | Office | Urology | Mireya Pack, | | | 2019 | Visit | | PIG MACHINE OPERATOR [address] | | | | | | [address] [place], | | | | | | [place] [address] | | | | | | [phone] | | | | | | | | | | | | Toy Wild, DO | | | | | | [address] | | | | | | [place] [address] | | | | | | [phone] | | | | | | | | +--------+---------+ + + + documented as of this encounter Procedures + +--------+ + + + | Procedure Name | Priori | Date/Time | Associated Diagnosis | Comments | | | ty | | | | + +--------+ + + + | POC GLUCOSE | Routin | 01/16/2018 | | Results for this | | | e | 8:46 PM | | procedure are in the | | | | PST | | results section. | + +--------+ + + + | XR CHEST 1 VIEW | Routin | 01/16/2018 | | Results for this | | | e | 6:39 PM | | procedure are in the | | | | PST | | results section. | + +--------+ + + + | HISTORICAL LAB PANEL | Routin | 01/16/2018 | | Results for this | | RESULT | e | 6:14 PM | | procedure are in the | | | | PST | | results section. | + +--------+ + + + | TROPONIN I | Routin | 01/16/2018 | | Results for this | | | e | 6:14 PM | | procedure are in the | | | | PST | | results section. | + +--------+ + + + | ECG 12 LEAD | Routin | 01/16/2018 | | Results for this | | | e | 5:57 PM | | procedure are in the | | | | PST | | results section. | + +--------+ + + + documented in this encounter Results POC Glucose (01/16/2018 8:46 PM PST) + + + + + + | Component | Value | Ref Range | Performed | Pathologist | | | | | At | Signature | + + + + + + | Glucose, | 264 (H)Comment: Testing | 65 - 99 mg/dL | EXTERNAL | | | Fingerstick | performed at [facility];[address] | | LAB | | | | [address];[place], [place] | | | | | | [address] | | | | + + + + + + + + | Specimen | + + | | + + + +---------+ + + | Performing | Address | City/State/Zipcode | Phone Number | | Organization | | | | + +---------+ + + | EXTERNAL LAB | | | | + +---------+ + + XR Chest 1 Vw (01/16/2018 6:39 PM PST) + + | Specimen | + + | | + + + + + | Impressions | Performed At | + + + | No evidence of acute disease or active process. No infiltrate or | | | failure Electronically signed by Elias Underwood MD on | | | 01/16/2018 6:44 PM | | + + + + + + | Narrative | Performed At | + + + | History:62 years old Male with shortness of breath. Technique: | | | AP upright portable radiographic examination of the chest. 17 | | | October 2016 prior study for comparison. Findings: | | | Cardiomediastinum is normal. Lungs are symmetrically inflated | | | without pneumothorax, infiltrate, or effusion. Somewhat lower | | | sensitivity due to decreased penetration Bones and soft tissues | | | are normal for age. | | + + + + + | Procedure Note | + + | Richard, Rad Conversion - 09/19/2018 1:06 AM PDT History:62 years old Male with | | shortness of breath. Technique: AP upright portable radiographic examination of the | | chest. 23 October 2016 prior study for comparison. Findings: Cardiomediastinum is | | normal. Lungs are symmetrically inflated without pneumothorax, infiltrate, or effusion. | | Somewhat lower sensitivity due to decreased penetration Bones and soft tissues are | | normal for age. IMPRESSION: No evidence of acute disease or active process. No | | infiltrate or failure | | PM | |Bones and soft tissues are normal for age. | | | |IMPRESSION: | |No evidence of acute disease or active process. No infiltrate or failure | | | | | + + HISTORICAL LAB PANEL RESULT (01/16/2018 6:14 PM PST) + + + + + -+ | Component | Value | Ref Range | Performed | Pathologist | | | | | At | Signature | + + + + + -+ | WBC | 9.52 | 3.80 - 11.00 | EXTERNAL | | | | | K/uL | LAB | | + + + + + -+ | Non- | 5.24 | 4.20 - 5.70 | EXTERNAL | | | Red Blood | | M/uL | LAB | | | Cells | | | | | | Counted | | | | | + + + + + -+ | Hemoglobin | 14.7 | 13.2 - 17.0 | EXTERNAL | | | | | g/dL | LAB | | + + + + + -+ | Hematocrit, | 43.6 | 39.0 - 50.0 % | EXTERNAL | | | POC | | | LAB | | + + + + + -+ | MCV | 83.2 | 80.0 - 100.0 fl | EXTERNAL | | | | | | LAB | | + + + + + -+ | MCH | 28.1 | 27.0 - 34.0 pg | EXTERNAL | | | | | | LAB | | + + + + + -+ | MCHC | 33.7 | 32.0 - 35.5 | EXTERNAL | | | | | g/dL | LAB | | + + + + + -+ | RDW-CV | 40.3 | 37 - 53 fl | EXTERNAL | | | | | | LAB | | + + + + + -+ | Platelet | 246 | 150 - 400 K/uL | EXTERNAL [...] + + -+ | % Segmented | 53.59 | % | EXTERNAL | | | | | | LAB | | | Neutrophils | | | | | + + + + + -+ | % | 30.55 | % | EXTERNAL | | | Lymphocytes | | | LAB | | + + + + + -+ | % Monocytes | 8.92 | % | EXTERNAL | | | | | | LAB | | + + + + + -+ | % | 5.80 | % | EXTERNAL | | | Eosinophils | | | LAB | | + + + + + -+ | % Basophils | 1.14 | % | EXTERNAL | | | | | | LAB | | + + + + + -+ | Absolute | 5.10 | 1.90 - 7.40 | EXTERNAL | | | Segmented | | K/uL | LAB | | | Neutrophils | | | | | + + + + + -+ | Absolute | 2.91 | 1.00 - 3.90 | EXTERNAL | | | Lymphocytes | | K/uL | LAB | | + + + + + -+ | Absolute | 0.85 (H) | 0.00 - 0.80 | EXTERNAL | | | Monocytes | | K/uL | LAB | | + + + + + -+ | Absolute | 0.55 (H) | 0.00 - 0.50 | EXTERNAL | | | Eosinophils | | K/uL | LAB | | + + + + + -+ | Absolute | 0.11 (H) | 0.00 - 0.10 | EXTERNAL | | | Basophils | | K/uL | LAB | | + + + + + -+ | Na | 138 | 135 - 145 | EXTERNAL | | | | | mmol/L | LAB | | + + + + + -+ | K | 3.8Comment: SLT | 3.5 - 4.9 | EXTERNAL | | | | HEMOLYSIS | mmol/L | LAB | | + + + + + -+ | Cl | 101 | 99 - 109 mmol/L | EXTERNAL | | | | | | LAB | | + + + + + -+ | CO2 | 28 | 23 - 32 mmol/L | EXTERNAL | | | | | | LAB | | + + + + + -+ | Anion Gap | 13 | 5 - 20 mmol/L | EXTERNAL | | | | | | LAB | | + + + + + -+ | Glucose, | 304 (H) | 65 - 99 mg/dL | EXTERNAL | | | Fasting | | | LAB | | + + + + + -+ | BUN | 20 | 8 - 25 mg/dL | EXTERNAL | | | | | | LAB | | + + + + + -+ | Creatinine | 1.1 | 0.70 - 1.30 | EXTERNAL | | | | | mg/dL | LAB | | + + + + + -+ | BUN/Creatin | 18 | | EXTERNAL | | | ine Ratio | | | LAB | | + + + + + -+ | Calcium | 8.7 | 8.5 - 10.5 | EXTERNAL | | | | | mg/dL | LAB | | + + + + + -+ | Protein, | 7.0 | 6.3 - 8.2 g/dL | EXTERNAL | | | Total | | | LAB | | + + + + + -+ | Albumin | 2.9 (L) | 3.3 - 4.8 g/dL | EXTERNAL | | | | | | LAB | | + + + + + -+ | Globulin | 4.1 | 1.3 - 4.9 g/dL | EXTERNAL [...] + + + -+ | ALP, | 124 (H) | 35 - 115 U/L | EXTERNAL | | | External | | | LAB | | + + + + + -+ | AST | 68 (H)Comment: SLT | 10 - 45 U/L | EXTERNAL | | | | HEMOLYSIS | | LAB | | + + + + + -+ | ALT | 32 | 10 - 65 U/L | EXTERNAL [...] + + -+ | CK, Total | 101 | 55 - 400 U/L | EXTERNAL [...] + + + -+ | aPTT, | 23 | 23 - 32 seconds | EXTERNAL | | | Patient | | | LAB | | + + + + + -+ | CK-MB | 2.1 | 0.5 - 3.6 ng/mL | EXTERNAL | | | | | | LAB | | + + + + + -+ | CK-MB Index | 2.1Comment: CK INDEX | | EXTERNAL | | [...] | + +---------+ + + Troponin I (01/16/2018 6:14 PM PST) + + + + + + | Component | Value | Ref Range | Performed | Pathologist | | | | | At | Signature | + + + + + + | Troponin I, | 0.02Comment: 0.00 to | 0.00 - 0.10 | [...] | | | | | | ACUTE [facility] Testing | | | | | | performed at [facility];[id number];[place], [place] | | | | | | [id number] | | | | + + + [...] + +---------+ + + ECG 12 lead (01/16/2018 5:57 PM PST) + + + + + + | Component | Value | Ref Range | Performed | Pathologist | | | | | At | Signature | + + + + + + | DIAGNOSIS: | Sinus rhythm with marked | | EXTERNAL | | | | sinus arrhythmiaST & T | | LAB | | | | wave abnormality, | | | | | | consider inferior | | | | | | ischemiaProlonged | | | | | | QTAbnormal ECGWhen | | | | | | compared with ECG of | | | | | | 23-OCT-2017 12:36,No | | | | | | significant [...] | | | | | ONLY, -COMPUTER ([id number]), | | | | | | book or script editor Hortensia Carrillo | | | | | | ([id number]) on 01/16/2018 | | | | | | 7:45:11 PM | | | | + + + + + + + + | Specimen | + + | | + + + + + | Narrative | Performed At | + + + | Historically converted procedure from [facility] Epic environment | EXTERNAL LAB | + + + + +---------+ + + | Performing | Address | City/State/Zipcode | Phone Number | | Organization | | | | + +---------+ + + | EXTERNAL LAB | | | | + +---------+ + + documented in this encounter Visit Diagnoses + + | Diagnosis | + + | History of palpitations | + + | Chronic atrial fibrillation (HCC) Atrial fibrillation | + + | Hyperglycemia Other abnormal glucose | + + | Atypical chest pain Other chest pain | + + documented in this encounter
--- OUTSIDE RECORDS SUMMARY | ~2019-09-09 | XMS | Encounter Summary ---
Demographics + + + | Address | [address] | | | [place] [address] | + + + | Home Phone [...] + | Sammi Kohler | ECON | [place] [address] | | + + + + + Care Team Providers + +------+ + | Care Cable Television Technician Name | Role | Phone | + +------+ + PCP | Unavailable | + +------+ + Encounter Details +--------+ + + + + | Date | Type | Department | Care Team | Description | +--------+ + + + + | 02/09/ | Emergency | [facility] | Kevyn Don, | Abdominal pain; | | 2013 | | [facility] | MD Anatoliy Camacho NIKO COOK | Elevated blood | | | | EM[facility]Y [facility]ENTER | [place], [place] | pressure | | | | [address] | [address] | | | | | [place], [place] | | | | | | [address] | | | | | | [phone] | | | +--------+ + + + [...] ED Notes Conversion Transaction, Provider Unknown - 02/09/2013 5:16 PM PSTFormatting of this note m ight be different from the original. ED Notes by Mary Martin RN at 02/09/131715 Author: Mary Martin RN Service: (none) Author Type: Registered Nurse Filed: 02/09/131716 Date of Service: 02/09/131715 Status: Signed Scientific Specialist: Mary Martin RN (Registered Nurse) Pt. Calling family/friend for ride home at this time. Mary Martin RN 02/09/131716 onver ivana Transaction, Provider Unknown - 02/09/2013 4:11 PM PST ED Notes by Maribeth Lew RN at 02/09/131610 Author: Maribeth Lew RN Service: (none) Author Type: Registered Nurse Filed: 02/09/131610 Date of Service: 02/09/131610 Status: Signed Scientific Specialist: Maribeth Lew RN (Registered Nurse) MD at bedside Maribeth Lew RN 02/09/131610 axKevyn daly MD - 02/09/2013 3:54 PM PST ED Provider Notes by Kevyn Don MD at 02/09/131553 Author: Kevyn Don MD Service: (none) Author Type: Physician Filed: 02/09/132122 Date of Service: 02/09/131553 Status: Signed Scientific Specialist: Kevyn Don MD (Physician) [facility] Department of Emergency Medicine History of Present Illness Kevyn Guzman is a 57 y.o. male presenting with abdominal pain for 24 hours. Patient infor mation was obtained from patient and past medical records. History/Exam limitations: none. Patient presented to the Emergency Department [facility]. Chief Complaint Patient presents with Abdominal Pain changes in medications on , now states he has abd pain Kevyn Guzman presents for evaluation of abdominal pain. He notes that he was changed from metoprolol to bystolic and also added Chlorthalidone and Tradjenta was added for his diabet es. Now he is worried that the sharp pain he is having is related to this new medication. T he symptom onset was last night, and has had a waxing and waning course. The pain is located in the right abdomen, and is rated as "sharp and lasts 2-3 seconds". There is radiation "al l over". This pain is made worse by nothing and is relieved by nothing. The patient also co mplains of the following additional symptoms: fatigue. The patient denies nausea, vomiting, fevers and chills. Care prior to arrival consisted of rest with some relief. The patient has not had these symptoms before. Has an appointment with a new provider at the [facility] [place] on Monday Primary care provider: JERRELL GUTIÉRREZ Past Medical History Diagnosis Date Diabetes mellitus type II Atrial fibrillation Hypertension Hyperlipidemia Anxiety Depression WARD (obstructive sleep apnea) 08/11/2012 Basal cell carcinoma 09/26/2012 Unspecified visual disturbance Past Surgical History Procedure Date Unlisted procedure arthroscopy Knee surgery Leg surgery LLE Colonoscopy Cholecystectomy, laparoscopic 09/12/2012 Procedure: LAPAROSCOPIC - CHOLECYSTECTOMY; Surgeon: Jevon Vargas DO; Location: [facility] OR; Service: General; 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; Abdominal surgery Cholecystectomy Skin cancer excision 10/10/2012 Procedure: EXCISION - SKIN CANCER; Surgeon: Sy Fierro MD; Location: [facility] OR ; Service: Plastics; Laterality: Left; upper arm and upper back w/frozen section Prior to Admission medications Medication Sig Start Date End Date Taking? Authorizing Provider chlorthalidone (HYGROTEN) 25 MG tablet Take 25 mg by mouth daily. Yes Historical Provider linagliptin (TRADJENTA) 5 MG tablet Take 5 mg by mouth daily. Yes Historical Provider nebivolol (BYSTOLIC) 10 MG tablet Take 20 mg by mouth daily. Yes Historical Provider ARIPiprazole (ABILIFY) 10 MG tablet Take 15 mg by mouth nightly. Historical Provider citalopram [...] MD lisinopril (PRINIVIL,ZESTRIL) 20 MG tablet Take 20 [...] into the lungs daily. Histo rical Provider atenolol (TENORMIN) 100 MG tablet Take 200 mg by mouth nightly. 02/09/13 Historical Provide r Allergies Allergen Reactions B12-Ca Rash "B12" makes [...] on file Social History Narrative [place], [place], full code Patient is a local resident and lives in a home. Patient has good social support Family History Problem Relation Age of Onset Heart disease Father Heart disease Sister Diabetes type II Sister Review of Systems Review of Systems Constitutional: Negative for fever and chills. HENT: Negative for hearing loss, ear pain and tinnitus. Eyes: Negative for double vision and photophobia. Respiratory: Negative for hemoptysis, sputum production and shortness of breath. Cardiovascular: Negative for chest pain and orthopnea. Gastrointestinal: Positive for abdominal pain. Negative for nausea and vomiting. Skin: Negative for itching and rash. Ten systems reviewed and otherwise negative Physical Exam BP 153/109 | Pulse 72 | Temp 97.9 F (36.6 C) (Oral) | Resp 14 | Ht 1.803 m (5' 11") | W t 111.131 kg (245 lb) | BMI 34.19 kg/m2 | SpO2 95% Vital signs are reviewed and show elevat ed BP. 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 Psych: Appropriate affect, no evidence of hallucinations or delusions. Not suicidal or ho micidal at the time of my examination Ext: Normal Medical Decision Making and Emergency Department Course ED Department Course 15:55. Patient care initiated. After careful consideration of [...] 12 lead EKG to evaluate this differential diagnosis The patient is convinced that his medication (he thinks the chlorthalidone) is causing this and states he plans to stop the medication and then restart it in a day and see if this hel ps. I advised that any medication changes (stopping or starting) be reviewed with the [facility] doctor as this is not in my purview as an Emergency Department physician 17:32. Workup is negative at this time. Will discharge home. [facility] the [facility], I have reviewed my diagnostic impression with the patient. We have specifically discussed the signs and symptoms that would constitute the need for an immediate return to the Emergency Department, the importance of continued outpatient follow up with the PMD and further testing (if deemed necessary by the patient's doctor) and the i mportance of compliance with the discharge instructions. I have answered the questions that the patient has to the best of my ability and feel that there is no emergent medical condit ion at the conclusion of the visit. We have also specifically reviewed the results of any t esting performed today as it relates to their presenting complaint. Based on the laboratory and diagnostic testing performed today, the findings on my physical examination, the histor ical information obtained and the patient's course in the Emergency Department, I feel that the list of emergent diagnoses listed above has been excluded Patient Vitals for the past 24 hrs: BP Temp Temp src Pulse Resp SpO2 Height Weight 02/09/13 1726 183/89 mmHg - - 70 - - - - 02/09/13 1725 191/88 mmHg - - 71 22 95 % - - 02/09/13 1713 148/65 mmHg - - 57 18 98 % - - 02/09/13 1616 159/74 mmHg - - 86 18 96 % - - 02/09/13 1538 153/109 mmHg 97.9 F (36.6 C) Oral 72 14 95 % 1.803 m (5' 11") 111.131 k g (245 lb) The vital sings above have been reviewed prior to disposition Medications given in the Emergency Department: Medications nebivolol (BYSTOLIC) 10 MG tablet (not administered) chlorthalidone (HYGROTEN) 25 MG tablet (not administered) linagliptin (TRADJENTA) 5 MG tablet (not administered) nitroGLYCERIN (NITROSTAT) 0.4 MG SL tablet (not administered) Records Reviewed Old medical records. Nursing notes for this Emergency Department visit were reviewed. Consultations and phone calls: NONE Laboratory Evaluation: Results Procedure Component Value Ref Range Date/Time Complete Metabolic Panel [[id number]] (Abnormal) Collected:02/09/13 163 Order Status:Completed Updated:02/09/13 170 Specimen Information:Blood SODIUM 140 135 - 143 mmol/L POTASSIUM 3.7 3.5 - 4.9 mmol/L CHLORIDE 101 99 - 109 mmol/L CO2 33 (H) 23 - 32 mmol/L ANION GAP AGAP 9 5 - 20 mmol/L GLUCOSE 217 (H) 65 - 99 mg/dL BUN 19 8 - 25 mg/dL CREATININE 1.50 (H) 0.70 - 1.30 mg/dL BUN/CREAT 13 CALCIUM 9.4 8.5 - 10.2 mg/dL TOTAL PROTEIN 7.4 6.3 - 8.2 g/dL Albumin 3.4 (L) 3.6 - 5.0 g/dL GLOBULIN 4.0 1.3 - 4.9 g/dL A/G 0.8 (L) 1.0 - 2.4 TBIL 0.3 0.1 - 1.5 mg/dL ALK PHOS 106 35 - 115 U/L AST 25 10 - 45 U/L ALT 29 10 - 65 U/L EGFR 51 (L) >60 mL/min/1.73m2 Urine Microscopic [[id number]] (Abnormal) Collected:02/09/13 1615 Order Status:Completed Updated:02/09/131654 Specimen Information:Urine / Urine, Clean Catch WBC 1-5 0 - 5 /hpf RBC 0-2 0 - 2 /hpf EPITHELIAL 6-10 /lpf BACTERIA 1+ (A) NONE SEEN Mucus, UA 1+ CBC w Auto Diff [[id number]] (Abnormal) Collected:02/09/13 163 Order Status:Completed Updated:02/09/13 164 Specimen Information:Blood WBC 9.7 3.8 - 11.0 K/uL RBC 5.18 4.20 - 5.70 M/uL HGB 13.7 13.2 - 17.0 g/dL HCT 41.6 39.0 - 50.0 % MCV 80.3 80.0 - 100.0 fl MCH 26.4 (L) 27.0 - 34.0 pg MCHC 32.9 32.0 - 35.5 g/dL RDW SD 46.8 37 - 53 fl PLT 279 150 - 400 K/uL MPV 7.5 fl DIFF TYPE AUTOMATED NEUTROPHILS 58.2 % LYMPHOCYTES 28.8 % MONOCYTES 9.6 % EOSINOPHILS 2.9 % BASOPHILS 0.5 % NEUTROPHILS ABS 5.6 1.9 - 7.4 K/uL LYMPHOCYTES ABS 2.8 1.0 - 3.9 K/uL MONOCYTES ABS 0.9 (H) 0 - 0.8 K/uL EOSINOPHILS ABS 0.3 0 - 0.5 K/uL BASOPHILS ABS 0.1 0 - 0.1 K/uL POC clinitek 10 [[id number]] (Abnormal) Collected:02/09/13 1619 Order Status:Completed Updated:02/09/13 1622 Color, UA Dark yellow Clarity, UA CLEAR Glucose, UA 100 (A) NEGATIVE mg/dL Bilirubin, UA NEGATIVE NEGATIVE Ketones, UA TRACE (A) NEGATIVE mg/dL Spec Grav, UA >1.029 1.001 - 1.035 Blood, UA NEGATIVE NEGATIVE pH, UA 5.0 4.6 - 8.0 Protein, UA 30 (A) NEGATIVE mg/dL Urobilinogen, UA 0.2 <1.1 mg/dL Nitrite, UA NEGATIVE NEGATIVE WBC, UA NEGATIVE NEGATIVE Radiology and EKG Evaluation Imaging Results None EKG Interpretation - February 10, 2012 at 16:11 Rhythm: Sinus Ventricular Rate: 64 DC Interval: Normal ST Segments: Normal Significant Q-waves: None Blocks: None [place]: Normal Additional Comments: No acute ischemia ED Diagnoses Final diagnoses Abdominal pain Elevated blood pressure Disposition: ED Disposition Discharge Condition at discharge: Stable . Follow-up Information Follow up With Details Comments Contact Info Jerrell Gutiérrez DO Schedule an appointment as soon as possible for a visit [address] [facility] [phone] Discharge Medications: New Prescriptions No new medications Discharge decision based on the following: Patient's condition is stable; patient is ambula tory; patient drinking fluids; patient's pain is controlled; patient's exam is stable; minim ally abnormal test results; stable condition on repeat evaluations; social support is adequa te; transportation is available; follow-up is available; clinical impression is consistent w ith outpatient treatment Additional Documentation Procedures Kevyn Don MD 02/09/138 onversion Transact ion, Provider Unknown - 02/09/2013 3:41 PM PSTFormatting of this note might be different fr om the original. ED Notes by Maribeth Lew RN at 02/09/131540 Author: Maribeth Lew RN Service: (none) Author Type: Registered Nurse Filed: 02/09/13 154 Date of Service: 02/09/131540 Status: Signed Scientific Specialist: Maribeth Lew RN (Registered Nurse) Patient states he fell asleep at home and found himself on the floor next to his bed, he do esn't know if he lost consciousness or not, he does not have any injury, he states he has a bump behind his left ear but no obvious swelling is noted, he states he recently had some me dication changes with new BP meds that were started on the Maribeth Lew RN 02/09/131542 onver ivana Transaction, Provider Unknown - 02/09/2013 3:35 PM PST ED Notes by Tona Vick RN at 02/09/13 153 Author: Tona Vick RN Service: (none) Author Type: Registered Nurse Filed: 02/09/131534 Date of Service: 02/09/131534 Status: Signed Scientific Specialist: Tona Vick RN (Registered Nurse) Bed:11
Expected date:
Expected time:
Means of arrival:
Comments:
docume nted in this encounter Plan of Treatment +--------+---------+ + + + | Date | Type | Specialty | Care Team | Description | +--------+---------+ + + + | 09/10/ | Office | Geriatric Medicine | iMreya Pack, | | | 2019 | Visit | | PRIVACY SPECIALIST [address] | | | | | | [address] [place], | | | | | | [place] [address] | | | | | | [phone] | | | | | | | | +--------+---------+ + + + | 09/29/ | Office | Urology | Mireya Pack, | | | 2019 | Visit | | PRIVACY SPECIALIST [address] | | | | | | [address] [place], | | | | | | [place] [address] | | | | | | [phone] | | | | | | | | | | | | Toy Wild, DO | | | | | | [address] | | | | | | [place] [address] | | | | | | [phone] | | | | | | | | +--------+---------+ + + + documented as of this encounter Procedures + +--------+ + + + | Procedure Name | Priori | Date/Time | Associated Diagnosis | Comments | | | ty | | | | + +--------+ + + + | EXTERNAL LAB: CBC | Routin | 02/09/2013 | | Results for this | | | e | 4:33 PM | | procedure are in the | | | | PST | | results section. | + +--------+ + + + | COMPREHENSIVE | Routin | 02/09/2013 | | Results for this | | METABOLIC PANEL | e | 4:33 PM | | procedure are in the | | | | PST | | results section. | + +--------+ + + + | URINALYSIS, | Routin | 02/09/2013 | | Results for this | | MICROSCOPIC ONLY | e | 4:15 PM | | procedure are in the | | | | PST | | results section. | + +--------+ + + + | ECG 12 LEAD | Routin | 02/09/2013 | | Results for this | | | e | 4:11 PM | | procedure are in the | | | | PST | | results section. | + +--------+ + + + documented in this encounter Results External Lab: CBC (02/09/2013 4:33 PM PST) + + + + + + | Component | Value | Ref Range | Performed | Pathologist | | | | | At | Signature | + + + + + + | WBC | 9.7Comment: Testing | 3.8 - 11.0 K/uL | EXTERNAL | | | | performed at [facility];[address] | | LAB | | | | [address];[place], [place] | | | | | | [address] | | | | + + + + + + | Non- | 5.18Comment: Testing | 4.20 - 5.70 | EXTERNAL | | | Red Blood | performed at [facility];[address] | M/uL | LAB | | | Cells | [address];[place] | | | | | Counted | [id number] | | | | + + + + + + | Hemoglobin | 13.7Comment: Testing | 13.2 - 17.0 | EXTERNAL | | | | performed at [facility];[address] | g/dL | LAB | | | | [address];[place] | | | | | | [address] | | | | + + + + + + | Hematocrit, | 41.6Comment: Testing | 39.0 - 50.0 % | EXTERNAL | | | POC | performed at [facility];[address] | | LAB | | | | [address];[place] | | | | | | [address] | | | | + + + + + + | MCV | 80.3Comment: Testing | 80.0 - 100.0 fl | EXTERNAL | | | | performed at [facility];[address] | | LAB | | | | [address];[place] | | | | | | [address] | | | | + + + + + + | MCH | 26.4 (L)Comment: Testing | 27.0 - 34.0 pg | EXTERNAL | | | | performed at [facility];[address] | | LAB | | | | [address];[place] | | | | | | [address] | | | | + + + + + + | MCHC | 32.9Comment: Testing | 32.0 - 35.5 | EXTERNAL | | | | performed at [facility];[address] | g/dL | LAB | | | | [address];[place] | | | | | | [address] | | | | + + + + + + | RDW-CV | 46.8Comment: Testing | 37 - 53 fl | EXTERNAL | | | | performed at [facility];[address] | | LAB | | | | [address];[place] | | | | | | [address] | | | | + + + + + + | Platelet | 279Comment: Testing | 150 - 400 K/uL | EXTERNAL | | | Count | performed at [facility];[address] | | LAB | | | Plasma | [address];[place] | | | | | | [address] | | | | + + + + + + | MPV | 7.5Comment: Testing | fl | EXTERNAL | | | | performed at [facility];[address] | | LAB | | | | [address];[place] | | | | | | [address] | | | | + + + + + + | Differentia | AUTOMATEDComment: | | EXTERNAL | | | l Type | Testing performed at | | LAB | | | | [facility];[address];[place] [address] | | | | + + + + + + | % Segmented | 58.2 | % | EXTERNAL | | | | | | LAB | | | Neutrophils | | | | | + + + + + + | % | 28.8 | % | EXTERNAL | | | Lymphocytes | | | LAB | | + + + + + + | % Monocytes | 9.6 | % | EXTERNAL | | | | | | LAB | | + + + + + + | % | 2.9 | % | EXTERNAL | | | Eosinophils | | | LAB | | + + + + + + | % Basophils | 0.5 | % | EXTERNAL | | | | | | LAB | | + + + + + + | Absolute | 5.6 | 1.9 - 7.4 K/uL | EXTERNAL | | | Segmented | | | LAB | | | Neutrophils | | | | | + + + + + + | Absolute | 2.8 | 1.0 - 3.9 K/uL | EXTERNAL [...] + + + + | Absolute | 0.1 | 0 - 0.1 K/uL | EXTERNAL [...] + +---------+ + + Comprehensive Metabolic Panel (02/09/2013 4:33 PM PST) + + + + + + | Component | Value | Ref Range | Performed | Pathologist | | | | | At | Signature | + + + + + + | Na | 140Comment: Testing | 135 - 143 | EXTERNAL | | | | performed at [facility];[address] | mmol/L | LAB | | | | [address];[place] | | | | | | [address] | | | | + + + + + + | K | 3.7Comment: Testing | 3.5 - 4.9 | EXTERNAL | | | | performed at [facility];[address] | mmol/L | LAB | | | | [address];[place] | | | | | | [address] | | | | + + + + + + | Cl | 101Comment: Testing | 99 - 109 mmol/L | EXTERNAL | | | | performed at [facility];[address] | | LAB | | | | [address];[place] | | | | | | [address] | | | | + + + + + + | CO2 | 33 (H)Comment: Testing | 23 - 32 mmol/L | EXTERNAL | | | | performed at [facility];[address] | | LAB | | | | [address];[place] | | | | | | [address] | | | | + + + + + + | Anion Gap | 9Comment: Testing | 5 - 20 mmol/L | EXTERNAL | | | | performed at [facility];[address] | | LAB | | | | [address];[place] | | | | | | [address] | | | | + + + + + + | Glucose, | 217 (H)Comment: Testing | 65 - 99 mg/dL | EXTERNAL | | | Fasting | performed at [facility];[address] | | LAB | | | | [address];[place] | | | | | | [address] | | | | + + + + + + | BUN | 19Comment: Testing | 8 - 25 mg/dL | EXTERNAL | | | | performed at [facility];[address] | | LAB | | | | [address];[place] | | | | | | [address] | | | | + + + + + + | Creatinine | 1.50 (H)Comment: Testing | 0.70 - 1.30 | EXTERNAL | | | | performed at [facility];[address] | mg/dL | LAB | | | | [address];[place] | | | | | | [address] | | | | + + + + + + | BUN/Creatin | 13Comment: Testing | | EXTERNAL | | | ine Ratio | performed at [facility];[address] | | LAB | | | | [address];[place] | | | | | | [address] | | | | + + + + + + | Calcium | 9.4Comment: Testing | 8.5 - 10.2 | EXTERNAL | | | | performed at [facility];[address] | mg/dL | LAB | | | | [address];[place] | | | | | | [address] | | | | + + + + + + | Protein, | 7.4Comment: Testing | 6.3 - 8.2 g/dL | EXTERNAL | | | Total | performed at [facility];[address] | | LAB | | | | [address];[place] | | | | | | [address] | | | | + + + + + + | Albumin | 3.4 (L)Comment: Testing | 3.6 - 5.0 g/dL | EXTERNAL | | | | performed at [facility];[address] | | LAB | | | | [address];[place] | | | | | | [address] | | | | + + + + + + | Globulin | 4.0Comment: Testing | 1.3 - 4.9 g/dL | EXTERNAL | | | | performed at [facility];[address] | | LAB | | | | [address];[place] | | | | | | [address] | | | | + + + + + + | A/G Ratio | 0.8 (L)Comment: Testing | 1.0 - 2.4 | EXTERNAL | | | | performed at [facility];[address] | | LAB | | | | [address];[place] | | | | | | [address] | | | | + + + + + + | Bilirubin | 0.3Comment: Testing | 0.1 - 1.5 mg/dL | EXTERNAL | | | Total | performed at [facility];[address] | | LAB | | | | [address];[place] | | | | | | [address] | | | | + + + + + + | ALP, | 106Comment: Testing | 35 - 115 U/L | EXTERNAL | | | External | performed at [facility];[address] | | LAB | | | | [address];[place] | | | | | | [address] | | | | + + + + + + | AST | 25Comment: Testing | 10 - 45 U/L | EXTERNAL | | | | performed at [facility];[address] | | LAB | | | | [address];[place] | | | | | | [address] | | | | + + + + + + | ALT | 29Comment: Testing | 10 - 65 U/L | EXTERNAL | | | | performed at [facility];[address] | | LAB | | | | [address];[place] | | | | | | [address] | | | | + + + + + + | Estimated | 51 (L)Comment: GFR <60: | mL/min/1.73m2 | EXTERNAL [...] | | | | | | at [facility];[address];[place] [address] | | | | + + + + + + + + | Specimen | + + | Blood specimen | | (specimen) | + + + +---------+ + + | Performing | Address | City/State/Zipcode | Phone Number | | Organization | | | | + +---------+ + + | EXTERNAL LAB | | | | + +---------+ + + Urinalysis, Microscopic Only (02/09/2013 4:15 PM PST) + + + + + + | Component | Value | Ref Range | Performed | Pathologist | | | | | At | Signature | + + + + + + | WBCJULIOCESAR | 1-5Comment: Testing | 0 - 5 /hpf | EXTERNAL | | | | performed at [facility];[address] | | LAB | | | | [address];[place] | | | | | | [address] | | | | + + + + + + | RBCJULIOCESAR | 0-2Comment: Testing | 0 - 2 /hpf | EXTERNAL | | | | performed at [facility];[address] | | LAB | | | | [address];[place] | | | | | | [address] | | | | + + + + + + | Epithelial | 6-10Comment: Testing | /lpf | EXTERNAL | | | Cells | performed at [facility];[address] | | LAB | | | | [address];[place] | | | | | | [address] | | | | + + + + + + | Bacteria, | 1+ (A)Comment: Testing | | EXTERNAL | | | UA | performed at [facility];[address] | | LAB | | | | [address];[place], [place] | | | | | | [address] | | | | + + + + + + | Mucus, | 1+ | | EXTERNAL | | | Urine [...] + +---------+ + + ECG 12 lead (02/09/2013 4:11 PM PST) + + + + + + | Component | Value | Ref Range | Performed | Pathologist | | | | | At | Signature | + + + + + + | DIAGNOSIS: | Normal sinus | | EXTERNAL | | | | rhythmNonspecific T wave | | LAB | | | | abnormalityAbnormal | | | | | | ECGWhen compared with | | | | | | ECG of 29-JAN-2013 | | | | | | 22:18,Nonspecific T wave | | | | | | abnormality now evident | | | | | | in Lateral leadsThis | | | | | | ECG [...] (500), | | | | | | proposal editor SANYA ALDANA ([id number]) | | | | | | on 02/10/2013 7:20:40 AM | | | | + + + + + + + + | Specimen | + + | | + + + + + | Narrative | Performed At | + + + | Historically converted procedure from [facility] Epic environment | EXTERNAL LAB | [...] pain, unspecified site | + + | Elevated blood pressure Elevated blood pressure reading without diagnosis of | | hypertension | + + documented in this encounter
--- OUTSIDE RECORDS SUMMARY | ~2019-09-09 | XMS | Encounter Summary ---
Demographics + + + | Address | [address] | | | [place] [address] | + + + | Home Phone | | + + + | Preferred Language | Unknown | + + + | Marital Status | | + + + | Adventist Affiliation | 1027 | + + + | Race | Unknown | + + + | Ethnic Group | Unknown | + + + Author + + + | Author | [facility] | | | and [place] | + + + | Organization | [facility] | | | and [place] | + + + | Address | Unknown | + + + | Phone | Unavailable | + + + Support + + + + + | Name | Relationship | Address | Phone | + + + + + | Sammi Kohler | ECON | [place] [address] | | + + + + + Care Team Providers + +------+ + | Care Development Geologist Name | Role | Phone | + +------+ + | Mireya Pack NP | PCP | | + +------+ + Reason for Visit + +--------+ + | Reason | Onset | Comments | | | Date | | + +--------+ + | TCM - Hosp FU | 07/31/ | | | | 2020 | | + +--------+ + Encounter Details +--------+ + + + + | Date | Type | Department | Care Team | Description | +--------+ + + + + | 07/31/ | Telephone | [facility] | Sanjuanita Rodriguez RN | TCM - Hosp FU | | 2019 | | TECHNICAL SYSTEM ANALYST | | | | | | [address] | | | [address] | | | | | | [place] | | | | | | [address] | | | | | | [phone] | | | +--------+ + + + [...] Miscellaneous Notes Telephone Encounter - Joy Connor, Cardiopulmonary Technician And Eeg Tech - 08/06/2019 9:13 AM PDTPatien t contacted, states he was back in the hospital last night, states his "A Fib kicked back up ", states he is doing ok right now. Patient has appointment with anti coagulation tomorrow. Patient says he received the warfarin but has not started it yet, encouraged patient to dis cuss at appointment tomorrow. el ephone Encounter - Joy Connor Cardiopulmonary Technician And Eeg Tech - 08/05/2019 3:13 PM PDTContacted patient, he states he has not received his warfarin, advised would follow up with pharmacy. Provided number to [facility] for follow up. Contacted [facility], [employer]ist states warfarin was delivered on 07/31 @ 3865. Will follow up with patient tomorrow morning when caregiver present. elephone Encounter - Joy Mcnamara Cardiopulmonary Technician And Eeg Tech - 08/05/2019 11:43 AM PDTAttempted to contact patient, no darcy nswer, left voicemail providing contact information. doc umented in this encounter Plan of Treatment +--------+---------+ + + + | Date | Type | Specialty | Care Team | Description | +--------+---------+ + + + | 09/10/ | Office | Geriatric Medicine | Mireya Pack, | | | 2019 | Visit | | [facility] [address] | | | | | | [address] [place], | | | | | | [place] [address] | | | | | | [phone] | | | | | | | | +--------+---------+ + + + | 09/29/ | Office | Urology | Mireya Pack, | | | 2019 | Visit | | [facility] [address] | | | | | | [address] [place], | | | | | | [place] [address] | | | | | | [phone] | | | | | | | | | | | | Toy Wild, DO | | | | | | [address] | | | | | | [place] [address] | | | | | | [phone] | | | | | | | | +--------+---------+ + + + documented as of this encounter Visit Diagnoses Not on filedocumented in this encounter
--- OUTSIDE RECORDS SUMMARY | ~2019-09-09 | XMS | Encounter Summary ---
Demographics + + + | Address | [address] | | | [place] [address] | + + + | Home Phone | | + + + | Preferred Language | Unknown | + + + | Marital Status | | + + + | Mormonism Affiliation | 1027 | + + + | Race | Unknown | + + + | Ethnic Group | Unknown | + + + Author + + + | Author | [facility] | | | and [place] | + + + | Organization | [facility] | | | and [place] | + + + | Address | Unknown | + + + | Phone | Unavailable | + + + Support + + + + + | Name | Relationship | Address | Phone | + + + + + | Sammi Kohler | ECON | [place] [address] | | + + + + + Care Team Providers + +------+ + | Care Customer Accounts Advisor Name | Role | Phone | + +------+ + | Mik Diego DO | PCP | | + +------+ + Encounter Details +--------+ + + + + | Date | Type | Department | Care Team | Description | +--------+ + + + + | 06/13/ | Orders Only | [facility] | Conversion | | | 2015 | | CENTER | Transaction, | | | | | ANTICOAGULATION | Provider Unknown | | | | | [facility] [place] | | | | | | [address] | (Fax) | | | | | [place], [place] | | | | | | [address] | | | | | | [phone] | | | +--------+ + + + [...] documented as of this encounter Progress Notes Deejay Goode - 06/13/2014 8:13 AM PDT Progress Notes by CITLALY Jackson at 06/13/14812 Author: CITLALY Jackson Service: (none) Author Type: Advanced Registered Nurse Prac danie Filed: 06/13/14817 Encounter Date: 06/13/2014 Status: Signed Windows Mobile Developer: CITLALY Jackson (Advanced Registered Nurse Practitioner) S- Maintenance visit. INR check and warfarin dosing. Pt dosed warfarin as directed. No medication changes reported. No illnesses or ER visits. No increased bruising or bleeding. O- INR 2.6 A- Therapeutic INR P- Continue same dosage. documented in this encoun ter Plan of Treatment +--------+---------+ + + + | Date | Type | Specialty | Care Team | Description | +--------+---------+ + + + | 09/10/ | Office | Geriatric Medicine | Mireya Pack, | | | 2019 | Visit | | [employer] CRAWLER TORCH [address] | | | | | | [address] [place], | | | | | | [place] [address] | | | | | | [phone] | | | | | | | | +--------+---------+ + + + | 09/29/ | Office | Urology | Mireya Pack, | | | 2019 | Visit | | [facility] [address] | | | | | | [address] [place], | | | | | | [place] [address] | | | | | | [phone] | | | | | | | | | | | | Toy Wild, DO | | | | | | [address] | | | | | | [place] [address] | | | | | | [phone] | | | | | | | | +--------+---------+ + + + documented as of this encounter Procedures + +--------+ + + + | Procedure Name | Priori | Date/Time | Associated Diagnosis | Comments | | | ty | | | | + +--------+ + + + | POC INR | Routin | 06/13/2014 | | Results for this | | | e | 12:00 AM | | procedure are in the | | | | PDT | | results section. | + +--------+ + + + documented in this encounter Results POC INR (06/13/2014 12:00 AM PDT) + +-------+ + + + | Component | Value | Ref Range | Performed | Pathologist | | | | | At | Signature | + +-------+ + + + | INR | 2.6 | | EXTERNAL | | | | [...]
--- OUTSIDE RECORDS SUMMARY | ~2019-09-09 | XMS | Encounter Summary ---
Demographics + + + | Address | [address] | | | [place] [address] | + + + | Home Phone | | + + + | Preferred Language | Unknown | + + + | Marital Status | | + + + | Christianity Affiliation | 1027 | + + + [...] Sammi Kohler | ECON | [place] [address] | | + + + + + Care Team Providers + +------+ + | Care Business Systems Advisor Name | Role | Phone | + +------+ + | Mireya Pack NP | PCP | | + +------+ + Reason for Visit + +--------+ + | Reason | Onset | Comments | | | Date | | + +--------+ + | TCM - Hosp FU | 07/28/ | | | | 2020 | | + +--------+ + Encounter Details +--------+ + + + + | Date | Type | Department | Care Team | Description | +--------+ + + + + | 07/28/ | Telephone | [facility] | Sanjuanita Rodriguez RN | TCM - Hosp FU | | 2019 | | DISTRIBUTION DISTRICT SUPERVISOR | | | | | | [address] | | | | | | [address] | | | | | | [place] | | | | | | [address] | | | | | | [phone] | | | +--------+ + + + [...] this encounter Miscellaneous Notes Telephone Encounter - Sanjuanita Rodriguez RN - 07/30/2019 11:06 AM PDTSecond unsuccessful attem pt to reach patient post hospital discharge, he is eligible for a Transitional Care [facility] billable follow up appointment. Patient is currently scheduled for a follow up appointment with primary care provider Kae BOUCHER 07.31.2019 at 1130. Will follow to be sure patient attends appointment as scheduled and attempt to contact him again after that time for follow up if no return call is received prior to that time. Electr onically signed by Sanjuanita Rodriguez RN at 07/30/2019 11:13 AM PDTdocumented in this encounter Plan of Treatment +--------+---------+ + + + | Date | Type | Specialty | Care Team | Description | +--------+---------+ + + + | 09/10/ | Office | Geriatric Medicine | Mireya Pack, | | 2019 | Visit | | COST ACCOUNTING MANAGER [address] | | | | | | [address] [place], | | | | | | [place] [address] | | | | | | [phone] | | | | | | | | +--------+---------+ + + + | 09/29/ | Office | Urology | Mireya Pack, | | 2019 | Visit | | COST ACCOUNTING MANAGER [address] | | | | | | [address] [place], | | | | | | [place] [address] | | | | | | [phone] | | | | | | | | | | | | Toy Wild, DO | | | | | | [address] | | | | | | [place] [address] | | | | | | [phone] | | | | | | | | +--------+---------+ + + + documented as of this encounter Visit Diagnoses Not on filedocumented in this encounter"
--- OUTSIDE RECORDS SUMMARY | ~2019-09-09 | XMS | Encounter Summary ---
Demographics + + + | Address | [address] | | | [place] [address] | + + + | Home Phone | | + + + | Preferred Language | Unknown | + + + | Marital Status | | + + + | Buddhist Affiliation | 1027 | + + + | Race | Unknown | + + + | Ethnic Group | Unknown | + + + Author + + + | Author | [facility] | | | and [place] | + + + | Organization | [facility] | | | and [place] | + + + | Address | Unknown | + + + | Phone | Unavailable | + + + Support + + + + + | Name | Relationship | Address | Phone | + + + + + | Sammi Kohler | ECON | [place] [address] | | + + + + + Care Team Providers + +------+ + | Care Gold Stamper Name | Role | Phone | + +------+ + PCP | Unavailable | + +------+ + Encounter Details +--------+ + + + + | Date | Type | Department | Care Team | Description | +--------+ + + + + | 06/05/ | Emergency | [facility] | Zach Garnica DO | Abdominal pain; | | 2013 - | | [facility] | [address] | Vomiting | | | | EMERGENCY CENTER | [place], [place] | | | 06/06/ | | [address] | [address] | | | 2013 | | [place], [place] | [phone] | | | | | [address] | | | | | | [phone] | | | +--------+ + + + [...] ED Notes by Jenn Moralez RN at 06/06/139 Author: Jenn Moralez RN Service: (none) Author Type: Registered Nurse Filed: 06/06/1322 Date of Service: 06/06/139 Status: Signed Supervisor Paint Roller Covers: Jenn Moralez RN (Registered Nurse) Awaiting taxi for ride to care facility. Jenn Gutierrez RN 06/06/1322 onver ivana Transaction, Provider Unknown - 06/05/2013 11:03 PM PDT ED Notes by Leslie Verdin RN at 06/05/132302 Author: Leslie Verdin RN Service: (none) Author Type: Registered Nurse Filed: 06/05/132302 Date of Service: 06/05/132302 Status: Signed Supervisor Paint Roller Covers: Leslie Verdin RN (Registered Nurse) Bedside report given to Marques Verdin RN 06/05/132302 onver ivaan Transaction, Provider Unknown - 06/05/2013 10:57 PM PDT ED Notes by Leslie Verdin RN at 06/05/132256 Author: Leslie Verdin RN Service: (none) Author Type: Registered Nurse Filed: 06/05/132256 Date of Service: 06/05/132256 Status: Signed Supervisor Paint Roller Covers: Leslie Verdin RN (Registered Nurse) Urinal at bedside Leslie Verdin RN 06/05/132256 onver ivana Transaction, Provider Unknown - 06/05/2013 10:45 PM PDT ED Notes by Leslie Verdin RN at 06/05/132244 Author: Leslie Verdin RN Service: (none) Author Type: Registered Nurse Filed: 06/05/132244 Date of Service: 06/05/132244 Status: Signed Supervisor Paint Roller Covers: Leslie Verdin RN (Registered Nurse) Dr Garnica at bedside Leslie Verdin RN 06/05/132244 ater, Zach Barrios DO - 06/05/2013 10:43 PM PDTFormatting of this note might be different from the or iginal. ED Provider Notes by Zach Garnica DO at 06/05/132242 Author: Zach Garnica DO Service: (none) Author Type: Physician Filed: 06/06/132324 Date of Service: 06/05/132242 Status: Signed Supervisor Paint Roller Covers: Zach Garnica DO (Physician) Located Within [facility] Department of Emergency Medicine 10:43 PM History of Present Illness Patient Identification Norah Gr is a 57 y.o. male. Patient information was obtained from patient. History/Exam limitations: none. Patient presented to the Emergency Department by: [place] [facility] Chief Complaint Chief Complaint Patient [...] - CHOLECYSTECTOMY; Surgeon: Jevon Vargas DO; Location: [facility] MAIN OR; Service: General; 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; Abdominal surgery Cholecystectomy Skin cancer excision 10/10/2012 Procedure: EXCISION - SKIN CANCER; Surgeon: Sy Fierro MD; Location: [facility] OR ; Service: Plastics; Laterality: Left; upper arm and upper back w/frozen section Esophagogastroduodenoscopy 03/03/2013 Procedure: ESOPHAGOGASTRODUODENOSCOPY; Surgeon: Howie Gibson MD; Location: [facility] ENDOSCOPY; S ervice: Gastroenterology; 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; Colonoscopy 03/04/2013 Procedure: COLONOSCOPY; Surgeon: Howie Gibson MD; Location: [facility] ENDOSCOPY; Service: Gastroe nterology; Laterality: [...] 1 tablet by mouth daily. 03/05/13 03/05/14 Ye ladonna Martínez MD LORazepam (ATIVAN) 0.5 MG tablet [...] patient. Patient is stable at this ti dc. 11:[address] results show no [...] reviewed (Using the electronic record system of [facility], I car efully reviewed the records with regard to the past medical/surgical history, previous medic ations, and allergies). Laboratory Evaluation Results Procedure Component Value Ref Range Date/Time Comprehensive metabolic panel [[id number]] (Abnormal) Collected:06/05/132258 Order Status:Completed Updated:06/05/132330 Specimen Information:Blood [...] 65 U/L EGFR >60 >60 mL/min/1.73m2 Lipase [[id number]] Collected:06/05/132258 Order Status:Completed Updated:06/05/132330 Specimen Information:Blood LIPASE 207 73 - 393 U/L CBC with differential [[id number]] (Abnormal) Collected:06/05/132258 Order Status:Completed Updated:06/05/132313 Specimen Information:Blood [...] Gutiérrez DO In 2 days [address] [facility] [address] Located Within [facility] Emergency Department If symptoms worsen [address] [address] Discharge Medications: New Prescriptions ONDANSETRON (ZOFRAN ODT) 4 MG DISINTEGRATING TABLET Take 1 tablet by mouth every 8 (eig ht) hours as needed for Nausea. Additional Documentation Procedures Attending Note: Documentation assistance provided by Kathryn Melendez (Scribe). Information recorded by the scribe has been reviewed and validated by me. Troy laughlin with its contents. DO Zach Gonsalez DO 06/06/132324 onversion Transactio n, Provider Unknown - 06/05/2013 10:37 PM PDT ED Notes by Jenn Moralez RN at 06/05/132236 Author: Jenn Moralez RN Service: (none) Author Type: Registered Nurse Filed: 06/05/132236 Date of Service: 06/05/132236 Status: Signed Supervisor Paint Roller Covers: Jenn Moralez RN (Registered Nurse) Bed:05
Expected date:
Expected time:
Means of arrival:
Comments:
docume nted in this encounter Plan of Treatment +--------+---------+ + + + | Date | Type | Specialty | Care Team | Description | +--------+---------+ + + + | 09/10/ | Office | Geriatric Medicine | Mireya Pack, | | | 2019 | Visit | | [facility] [address] | | | | | | [address] [place], | | | | | | [place] [address] | | | | | | [phone] | | | | | | | | +--------+---------+ + + + | 09/29/ | Office | Urology | Mireya Pack, | | | 2019 | Visit | | [facility] [address] | | | | | | [facility] [address] [place] | | | | | | [place] [address] | | | | | | [phone] | | | | | | | | | | | | [place], | | | | | | [address] | | | | | | [place] [address] | | | | | | [phone] | | | | | | | [...] | | | + ------+ External Lab: CBC (06/05/2013 10:59 PM PDT) + + + + + + | Component | Value | Ref Range | Performed | Pathologist | | | | | At | Signature | + + + + + + | WBC | 9.5Comment: Testing | 3.8 - 11.0 K/uL | EXTERNAL | | | | performed at [facility];[address] | | LAB | | | | [address];[place] | | | | | | [address] | | | | + + + + + + | Non- | 4.90Comment: Testing | 4.20 - 5.70 | EXTERNAL | | | Red Blood | performed at [facility];[address] | M/uL | LAB | | | Cells | [address];[place] | | | | | Counted | [address] | | | | + + + + + + | Hemoglobin | 13.1 (L)Comment: Testing | 13.2 - 17.0 | EXTERNAL | | | | performed at [facility];888 | g/dL | LAB | | | | [address];[place] | | | | | | [address] | | | | + + + + + + | Hematocrit, | 40.2Comment: Testing | 39.0 - 50.0 % | EXTERNAL | | | POC | performed at [facility];[address] | | LAB | | | | [address];[place] | | | | | | [address] | | | | + + + + + + | MCV | 82.1Comment: Testing | 80.0 - 100.0 fl | EXTERNAL | | | | performed at [facility];[address] | | LAB | | | | [address];[place] | | | | | | [address] | | | | + + + + + + | MCH | 26.7 (L)Comment: Testing | 27.0 - 34.0 pg | EXTERNAL | | | | performed at [facility];[address] | | LAB | | | | [address];[place] | | | | | | [address] | | | | + + + + + + | MCHC | 32.5Comment: Testing | 32.0 - 35.5 | EXTERNAL | | | | performed at [facility];[address] | g/dL | LAB | | | | [address];[place] | | | | | | [address] | | | | + + + + + + | RDW-CV | 44.6Comment: Testing | 37 - 53 fl | EXTERNAL | | | | performed at [facility];[address] | | LAB | | | | [address];[place] | | | | | | [address] | | | | + + + + + + | Platelet | 282Comment: Testing | 150 - 400 K/uL | EXTERNAL | | | Count | performed at [facility];[address] | | LAB | | | Plasma | [address];[place] | | | | | | [address] | | | | + + + + + + | MPV | 7.2Comment: Testing | fl | EXTERNAL | | | | performed at [facility];[address] | | LAB | | | | [address];[place] | | | | | | [address] | | | | + + + + + + | Differentia | AUTOMATEDComment: | | EXTERNAL | | | l Type | Testing performed at | | LAB | | | | [facility];[address];[place] [address] | | | | + + + + + + | % Segmented | 55.4Comment: Testing | % | EXTERNAL | | | | performed at [facility];[address] | | LAB | | | Neutrophils | [address];[place] | | | | | | [address] | | | | + + + + + + | % | 32.3Comment: Testing | % | EXTERNAL | | | Lymphocytes | performed at [facility];[address] | | LAB | | | | [address];[place] | | | | | | [address] | | | | + + + + + + | % Monocytes | 8.8Comment: Testing | % | EXTERNAL | | | | performed at [facility];[address] | | LAB | | | | [address];[place] | | | | | | [address] | | | | + + + + + + | % | 2.9Comment: Testing | % | EXTERNAL | | | Eosinophils | performed at [facility];[address] | | LAB | | | | [address];[place] | | | | | | [address] | | | | + + + + + + | % Basophils | 0.6Comment: Testing | % | EXTERNAL | | | | performed at [facility];[address] | | LAB | | | | [address];[place] | | | | | | [address] | | | | + + + + + + | Absolute | 5.3Comment: Testing | 1.9 - 7.4 K/uL | EXTERNAL | | | Segmented | performed at [facility];[address] | | LAB | | | Neutrophils | [address];[place] | | | | | | [address] | | | | + + + + + + | Absolute | 3.1Comment: Testing | 1.0 - 3.9 K/uL | EXTERNAL | | | Lymphocytes | performed at [facility];[address] | | LAB | | | | [address];[place] | | | | | | [address] | | | | + + + + + + | Absolute | 0.8Comment: Testing | 0 - 0.8 K/uL | EXTERNAL | | | Monocytes | performed at [facility];[address] | | LAB | | | | [address];[place] | | | | | | [address] | | | | + + + + + + | Absolute | 0.3Comment: Testing | 0 - 0.5 K/uL | EXTERNAL | | | Eosinophils | performed at [facility];[address] | | LAB | | | | [address];[place] | | | | | | [address] | | | | + + + + + + | Absolute | 0.1Comment: Testing | 0 - 0.1 K/uL | EXTERNAL | | | Basophils | performed at [facility];[address] | | LAB | | | | [address];[place] | | | | | | [address] | | | | + + + [...] EXTERNAL | | | | performed at [facility];[address] | | LAB | | | | [facility];[place], [place] | | | | | | [address] | | | | + + + [...] EXTERNAL | | | | performed at [facility];888 | mmol/L | LAB | | | | [address];[place] | | | | | | [address] | | | | + + + + + + | K | 3.7Comment: Testing | 3.5 - 4.9 | EXTERNAL | | | | performed at [facility];[address] | mmol/L | LAB | | | | [address];[place] | | | | | | [address] | | | | + + + + + + | Cl | 102Comment: Testing | 99 - 109 mmol/L | EXTERNAL | | | | performed at [facility];[address] | | LAB | | | | [address];[place] | | | | | | [address] | | | | + + + + + + | CO2 | 29Comment: Testing | 23 - 32 mmol/L | EXTERNAL | | | | performed at [facility];[address] | | LAB | | | | [address];[place] | | | | | | [address] | | | | + + + + + + | Anion Gap | 11Comment: Testing | 5 - 20 mmol/L | EXTERNAL | | | | performed at [facility];[address] | | LAB | | | | [address];[place] | | | | | | [address] | | | | + + + + + + | Glucose, | 226 (H)Comment: Testing | 65 - 99 mg/dL | EXTERNAL | | | Fasting | performed at [facility];[address] | | LAB | | | | [address];[place] | | | | | | [address] | | | | + + + + + + | BUN | 20Comment: Testing | 8 - 25 mg/dL | EXTERNAL | | | | performed at [facility];[address] | | LAB | | | | [address];[place] | | | | | | [address] | | | | + + + + + + | Creatinine | 1.18Comment: Testing | 0.70 - 1.30 | EXTERNAL | | | | performed at [facility];[address] | mg/dL | LAB | | | | [address];[place] | | | | | | [address] | | | | + + + + + + | BUN/Creatin | 17Comment: Testing | | EXTERNAL | | | ine Ratio | performed at [facility];[address] | | LAB | | | | [address];[place] | | | | | | [address] | | | | + + + + + + | Calcium | 9.1Comment: Testing | 8.5 - 10.2 | EXTERNAL | | | | performed at [facility];888 | mg/dL | LAB | | | | [address];[place] | | | | | | [address] | | | | + + + + + + | Protein, | 7.5Comment: Testing | 6.3 - 8.2 g/dL | EXTERNAL | | | Total | performed at [facility];[address] | | LAB | | | | [address];[place] | | | | | | [address] | | | | + + + + + + | Albumin | 3.4 (L)Comment: Testing | 3.6 - 5.0 g/dL | EXTERNAL | | | | performed at [facility];[address] | | LAB | | | | [address];[place] | | | | | | [address] | | | | + + + + + + | Globulin | 4.1Comment: Testing | 1.3 - 4.9 g/dL | EXTERNAL | | | | performed at [facility];[address] | | LAB | | | | [address];[place] | | | | | | [address] | | | | + + + + + + | A/G Ratio | 0.8 (L)Comment: Testing | 1.0 - 2.4 | EXTERNAL | | | | performed at [facility];[address] | | LAB | | | | [address] | | | | | | [address] | | | | + + + + + + | Bilirubin | 0.3Comment: Testing | 0.1 - 1.5 mg/dL | EXTERNAL | | | Total | performed at [facility];[address] | | LAB | | | | [address];[place] | | | | | | [address] | | | | + + + + + + | ALP, | 82Comment: Testing | 35 - 115 U/L | EXTERNAL | | | External | performed at [facility];[address] | | LAB | | | | [address];[place] | | | | | | [address] | | | | + + + + + + | AST | 21Comment: Testing | 10 - 45 U/L | EXTERNAL | | | | performed at [facility];[address] | | LAB | | | | [address];[place] | | | | | | [address] | | | | + + + + + + | ALT | 25Comment: Testing | 10 - 65 U/L | EXTERNAL | | | | performed at [facility];[address] | | LAB | | | | [address] [facility];[place], [place] | | | | | | [address] | | | | + + + [...] | | | | | | at [facility];[address];[place] [address] | | | | + + + [...]
--- OUTSIDE RECORDS SUMMARY | ~2019-09-09 | XMS | Encounter Summary ---
Demographics + + + | Address | [address] | | | [place] [address] | + + + | Home Phone | | + + + | Preferred Language | Unknown | + + + | Marital Status | | + + + | Bahai Affiliation | 1027 | + + + [...] + | Sammi Kohler | ECON | [place] [address] | | + + + + + Care Team Providers + +------+ + | Care Top Spotter Name | Role | Phone | + +------+ + PCP | Unavailable | + +------+ + Encounter Details +--------+ + + + + | Date | Type | Department | Care Team | Description | +--------+ + + + + | 01/21/ | Emergency | [facility] | | Frequent falls; DM | | 2013 | | [facility] | | (diabetes mellitus), | | | | [facility] | | type 2, | | | | [address] | | uncontrolled ([facility]) | | | | [place] | | | | | | [address] | | | | | | [phone] | | | +--------+ + + + [...] 01/21/142022 Date of Service: 01/21/142021 Status: Signed Cotton Puller: Levi Luna RN (Registered Nurse) Stable on his feet at this time. Pt was walked to the waiting area without difficulty. Levi Luna RN 01/21/142022 odges , Ashu Leyva MD - 01/21/2014 8:04 PM PSTFormatting of this note might be different from th e original. ED Provider Notes by Ashu Bobo MD at 01/21/142003 Author: Ashu Bobo MD Service: (none) Author Type: Physician Filed: 01/21/142015 Date of Service: 01/21/142003 Status: Signed Cotton Puller: Ashu Bobo MD (Physician) Procedures Additional Documentation Procedures [facility] Department of Emergency Medicine [...] CHOLECYSTECTOMY; Surgeon: Jevon Vargas DO; Location: [facility]; Service: General; 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; Abdominal surgery Cholecystectomy Skin cancer excision 10/10/2012 Procedure: EXCISION - SKIN CANCER; Surgeon: Sy Fierro MD; Location: [facility] ; Service: Plastics; Laterality: Left; upper arm and upper back w/frozen section Esophagogastroduodenoscopy 03/03/2013 Procedure: ESOPHAGOGASTRODUODENOSCOPY; Surgeon: Howie Gibson MD; Location: [facility]; S ervice: Gastroenterology; 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; Colonoscopy 03/04/2013 Procedure: COLONOSCOPY; Surgeon: Howie Gibson MD; Location: [facility]; Service: Gastroe nterology; 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; Upper gastrointestinal endoscopy Skin biopsy Hernia repair 07/03/2013 Procedure: LAPAROSCOPIC - HERNIA - INCISIONAL; Surgeon: Jevon Vargas DO; Location: [facility]; Service: General; 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; Prior to Admission medications Medication Sig Start Date End Date Taking? Authorizing Provider Albuterol Sulfate (VENTOLIN HFA IN) Inhale 2 puffs into the lungs as needed. 108 mcg/act Historical Provider Pxhfw-J-Mialwevwaunqw (BEANO) TABS Take 150 Units by mouth [...] 180 mg at hs 11/30/13 11/30/14 [facility] carlyn Mae MD docusate sodium [...] 100 mg by mouth nightly. Historical Provider wwrrktjsz-dxfqvhhr-jlxmwbrzs hydroxide-simethicone Take 40 mLs by mouth daily [...] DO Brandie In 2 days as scheduled [address] [facility] [address] Discharge Medications: New Prescriptions No new medications Ashu Bobo MD 01/21/142015 onversion Transa ction, Provider Unknown - 01/21/2014 7:51 PM PST ED Notes by Levi Luna RN at 01/21/141950 Author: Levi Luna RN Service: (none) Author Type: Registered Nurse Filed: 01/21/141950 Date of Service: 01/21/141950 Status: Signed Cotton Puller: Levi Luna RN (Registered Nurse) accu check 228 Levi Luna RN 01/21/141950 onver ivana Transaction, Provider Unknown - 01/21/2014 7:40 PM PST ED Notes by Levi Luna RN at 01/21/141939 Author: Levi Luna RN Service: (none) Author Type: Registered Nurse Filed: 01/21/141952 Date of Service: 01/21/141939 Status: Signed Cotton Puller: Levi Luna RN (Registered Nurse) Pt reports previous falls when his blood glucose is off. Levi Luna RN 01/21/141952 ONDAdokole wilson in this encounter Plan of Treatment +--------+---------+ + + + | Date | Type | Specialty | Care Team | Description | +--------+---------+ + + + | 09/10/ | Office | Geriatric Medicine | Mireya Pack, | | | 2019 | Visit | | [employer]ICAL [employer]ETING MANAGER [address] | | | | | | [address] [place], | | | | | | [place] [address] | | | | | | [phone] | | | | | | | | +--------+---------+ + + + | 09/29/ | Office | Urology | Mireya Pack, | | | 2019 | Visit | | CLINICAL MARKETING MANAGER [address] | | | | | | [address] [place], | | | | | | [place] [address] | | | | | | [phone] | | | | | | | | | | | | [place], | | | | | | [address] | | | | | | [place] [address] | | | | | | [phone] | | | | | | | [...] | | | Fingerstick | performed at [facility];8 | | LAB | | | | [address];[place] | | | | | | [address] | | | | + + + [...]
--- OUTSIDE RECORDS SUMMARY | ~2019-09-09 | XMS | Encounter Summary ---
Demographics + + + | Address | [address] | | | [place] [address] | + + + | Home Phone | | + + + | Preferred Language | Unknown | + + + | Marital Status | | + + + | Taoism Affiliation | 1027 | + + + | Race | Unknown | + + + | Ethnic Group | Unknown | + + + Author + + + | Author | [facility] | | | and [place] | + + + | Organization | [facility] | | | and [place] | + + + | Address | Unknown | + + + | Phone | Unavailable | + + + Support + + + + + | Name | Relationship | Address | Phone | + + + + + | Sammi Kohler | ECON | [place] [address] | | + + + + + Care Team Providers + +------+ + | Care Station Tender Name | Role | Phone | [...] + + | 11/15/ | Emergency | [facility] | Bimal Ramirez, | Slow transit | | 2019 | | MEDICAL CENTER | [address] | [facility] | | | | EMERGENCY CENTER | [place], [place] | (Primary Dx); | | | | [address] | [address] | Elevated blood | | | | [place], [place] | | pressure reading; | | | | [address] | | Acute hyperglycemia | | | | [phone] | | | +--------+ + + + [...] Everywhere.Blood Sugar, Arnulfo fleming to Check Your (Turkish)Checking Your Blood Sugar, Nfqk-jx-Dltu (Turkish)Constipation, Martha johnson (Turkish)documented in this encounter Medications at Time of [...] MD - 11/15/2018 1 1:27 AM PDT [facility] Department of Emergency Medicine Norah Gr [...] days for your ED visit Contact information: Nirmal MAHER [facility] [address] [facility] [address] [facility]. Specialty: Emergency Medicine Why: As needed Contact information: Darrick Maher [facility] [address] Discharge Medication List as of 11/15/2018 13:15 [...] (Asymptomatic) Elevated Blood Sugar (Asymptomatic) ED Room: [id number]/[id number] HPI Norah Gr is a 62 y.o. [...] ms at this time. No reported care WELT RANDER. PAST MEDICAL & SURGICAL HISTORY Past Medical [...] of GE junction Hypercholesterolemia 07/08/2013 Hyperlipidemia Hypertension half-way (current) use of 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 Obesity, Class I, BMI 30-34.9 07/08/2013 WARD (obstructive sleep apnea) 08/11/2012 does not use CPAP because of the noise Other chronic pain Renal failure Stroke (HCC) TIA (transient ischemic attack) Unspecified visual disturbance reading glasses Past Surgical History: Procedure Laterality Date ABDOMEN SURGERY CHOLECYSTECTOMY CHOLECYSTECTOMY, LAPAROSCOPIC 09/12/2012 Procedure: LAPAROSCOPIC - CHOLECYSTECTOMY; Surgeon: Jevon Vargas DO; Location: [facility] MAIN OR; Service: General; 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; COLONOSCOPY COLONOSCOPY 03/04/2013 Procedure: COLONOSCOPY; Surgeon: Howie Gibson MD; Location: [facility] ENDOSCOPY; Service: Gastroen terology; 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; HERNIA REPAIR 07/03/2013 Procedure: LAPAROSCOPIC - HERNIA - INCISIONAL; Surgeon: Jevon Vargas DO; Location: [facility] MAIN OR; Service: General; 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; KNEE SURGERY rt knee, patella LEG SURGERY LLE OTHER SURGICAL HISTORY UNLISTED PROCEDURE ARTHROSCOPY OTHER SURGICAL HISTORY Left 05/05/2014 SKIN LESION EXCISION - Procedure: EXCISION - LESION - FROZEN SECTION; Surgeon: Sy murcia MD; Location: [facility] MAIN OR; Service: Plastics; Laterality: Left; forearm SKIN BIOPSY SKIN CANCER EXCISION Left 10/10/2012 Procedure: EXCISION - SKIN CANCER; Surgeon: Sy Fierro MD; Location: [facility] MA[facility] OR; Service: Plastics; Laterality: Left; upper arm and upper back w/frozen section UPPER GASTROINTESTINAL ENDOSCOPY UPPER GASTROINTESTINAL ENDOSCOPY 03/03/2013 Procedure: ESOPHAGOGASTRODUODENOSCOPY; Surgeon: Howie Gibson MD; Location: [facility] ENDOSCOPY; Se rvice: Gastroenterology; 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; CURRENT MEDICATIONS WELT RANDER Home Medications Medication Sig acetaminophen (TYLENOL) 325 [...] Lives alone x 1 wk, moved from [facility], , 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 2 falls in the last 6 months. REVIEW OF SYSTEMS Constitutional: Negative for fever Positive for chills, hypertension, hyperglycemia Eyes: Negative for vision changes Nose: Negative for congestion, nosebleeds Throat: Negative for sore throat CV/Resp: Negative for chest pain, fxdqdzema-dc-befexm, cough GI: Negative for abdominal pain, nausea, [...] Component Value Ref Range Date/Time POC Glucose [[id number]] (Abnormal) Collected: 11/15/18 1227 Order Status: Completed [...] free air or obstruction. Signed by: Irina Ji Richard Sign Date/Time: 11/15/2018 12:22 PM ED COURSE Pertinent Labs & Imaging studies were reviewed along with EMS notes and care home record s if applicable. (See chart for [...] 10 mL, lidocaine (XYLOCAINE) 2% 10 mL, YYXDrxjeyxpve-rmkegkzeduj-qxqohsjo-scopolamine (DON ) 10 mL liquid (30 mLs [...] recognition system. The possibility of "sound alike" furnace tapper errors, addition and/or deletions may occur. If [...] 11/15/2018 16:33 Bimal Ramirez MD 11/18/18 2016 Tesfaye Pickens R N - 11/15/2018 11:25 AM PDTPt states [...] | | 2019 | Visit | | [facility] [address] | | | | | | [address] [place], | | | | | | [place] [address] | | | | | | [phone] | | | | | | | | +--------+---------+ + + + | 09/29/ | Office | Urology | Mireya Pack, | | | 2019 | Visit | | [facility] [address] | | | | | | [address] [place], | | | | | | [place] [address] | | | | | | [phone] | | | | | | | | | | | | Toy Wild, DO | | | | | | [address] | | | | | | [place] [address] | | | | | | [phone] | | | | | | | [...] | | n - | | | 11/15/ | | | 2019 | | | [...] | | | ON?10/ | | | 10/201 | | | 9 | | | 10:52? | | | GR, | | | NORAH | | | | | | M?MRN: | | | | | | [id number] | | | [id number] | | | riteri | | | [...] | | [facility] | | | [place] | | | [place] | | | Emerge | | | ncy | | | Chief | | | Compla | | | int: | | | SOB,RT | | | ARM | | | PAIN | | | Rocco 6, | | | 2019 | | | [place] | | | [facility] | | | [place] | | | [place] | | | [...] Testing | 65 - 99 mg/dL | [facility] | | | POC | performed at [facility] | | LABORATORY | | | | [address];[place], [place] | | | | | | [address] | | | | + + + + + + + + | Specimen | + + | | + + + + + + + | Performing | Address | City/State/Zipcode | Phone Number | | Organization | | | | + + + + + | [facility] | [address] | [place] [address] | [phone] | + + + + + XR [...] | | | | | | | QXXSkfytaxaij-wtobfunffzy-eihxami | | | | | | | [...] mLs | | | | Oral, ONCE, [facility] 11/15/18 at 1135, | | 19 11:40 | | | | | For 1 dose | | AM PDT | | | | + +-------+ +--------+---+---+ +---+---+ | | | +---+---+ documented in this encounter
--- OUTSIDE RECORDS SUMMARY | ~2019-09-09 | XMS | Encounter Summary ---
Demographics + + + | Address | [address] | | | [place] [address] | + + + | Home Phone | | + + + | Preferred Language | Unknown | + + + | Marital Status | | + + + | Roman Catholic Affiliation | 1027 | + + [...] + | Sammi Kohler | ECON | [place] [address] | | + + + + + Care Team Providers + +------+ + | Care Certified Surgical Tech/First Assistant Name | Role | Phone | + +------+ + PCP | Unavailable | + +------+ + Encounter Details +--------+ + + + + | Date | Type | Department | Care Team | Description | +--------+ + + + + | 05/30/ | Hospital | [facility] | Conversion | TIA (transient | | 2015 | Encounter | MEDICAL CENTER | Transaction, | ischemic attack) | | | | ULTRASOUND [address] | Provider Unknown | | | | | [address] MAHER | [phone] | | | | | [place], [place] | | | | | | [address] | | | | | | [phone] | | | +--------+ + + + [...] | 2019 | Visit | | [employer] PATH[employer] [address] | | | | | | [address] [place], | | | | | | [place] [address] | | | | | | [phone] | | | | | | | | +--------+---------+ + + + | 09/29/ | Office | Urology | Mireya Pack, | | | 2019 | Visit | | [employer] PATHOLOGIST [address] | | | | | | [address] [place], | | | | | | [place] [address] | | | | | | [phone] | | | | | | | | | | | | Toy Wild, DO | | | | | | [address] | | | | | | [place] [address] | | | | | | [phone] | | | | | | | [...]
--- OUTSIDE RECORDS SUMMARY | ~2019-09-09 | XMS | Encounter Summary ---
Demographics + + + | Address | [address] | | | [place] [address] | + + + | Home Phone [...] + | Sammi Kohler | ECON | [place] [address] | | + + + + + Care Team Providers + +------+ + | Care Intelligence Support Officer Name | Role | Phone | + +------+ + PCP | Unavailable | + +------+ + Encounter Details +--------+ + + + + | Date | Type | Department | Care Team | Description | +--------+ + + + + | 12/22/ | Emergency | [facility] | Martell Gold | Atypical chest pain; | | 2012 | | MEDICAL CENTER | MD Kary [address] | Epigastric pain; | | | | EMERGENCY CENTER | MASSIMO MCCAULEY | Gallstones | | | | [address] | [place] [address] | | | | | [place], [place] | [phone] | | | | | [address] | | | | | | [phone] | | | +--------+ + + + [...] Case Management by QUINN White at 12/22/12 7607 Author: QUINN White Service: (none) Author Type: Laundry Worker Filed: 12/22/12 5077 Date of Service: 12/22/121258 Status: Signed Aviation Project Engineer: QUINN White (Laundry Worker) [place] nj Rcvd pt with a total of 12 [...] Filed: 12/22/12 1010 Date of Service: 12/22/12 1009 Status: Signed Aviation Project Engineer: Mel Barraza RN (Registered Nurse) EMS IV RAC d/c, cath intact and bandage applies. Pt called a friend to come get him and ta ke him home. Mel Barraza RN 12/22/12 1010 onver ivana Transaction, Provider Unknown - 12/22/2012 9:16 AM PST ED Notes by Mel Barraza RN at 12/22/12915 Author: Mel Barraza RN Service: (none) Author Type: Registered Nurse Filed: 12/22/12916 Date of Service: 12/22/12915 Status: Signed Aviation Project Engineer: Mel Barraza RN (Registered Nurse) [place] Mel Barraza RN 12/22/12916 onver ivana Transaction, Provider Unknown - 12/22/2012 8:51 AM PST ED Notes by Mel Barraza RN at 12/22/12850 Author: Mel Barraza RN Service: (none) Author Type: Registered Nurse Filed: 12/22/12851 Date of Service: 12/22/12850 Status: Signed Aviation Project Engineer: Mel Barraza RN (Registered Nurse) Spoke with [...] 1420 Date of Service: 12/22/12814 Status: Signed Aviation Project Engineer: Martell Gold MD (Physician) [facility] Department of Emergency Medicine History of Present Illness Patient Identification Kevyn Guzman is a 57 y.o. male. Patient information was obtained from patient and EMS personnel. History/Exam limitations: none. Patient presented to the Emergency Department by: [facility] 1723 Chief Complaint Chief Complaint Patient presents [...] - CHOLECYSTECTOMY; Surgeon: Jevon Vargas DO; Location: [facility] MA[facility] OR; Service: General; 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; Abdominal surgery Cholecystectomy Skin cancer excision 10/10/2012 Procedure: EXCISION - SKIN CANCER; Surgeon: Sy Fierro MD; Location: [facility] ; Service: Plastics; Laterality: [...] on file Social History Narrative [facility] [place] [facility], IADL, full code Family History Problem Relation [...] Component Value Ref Range Date/Time Cardiac Panel [[id number]] (Abnormal) Collected:12/22/12 0800 Order Status:Completed Updated:12/22/12 0842 [...] ng/mL CK-MB Index 2.1 POC cardiac troponin [[id number]] Collected:12/22/12818 Order Status:Completed Updated:12/22/12833 POC CARDIAC TROPONIN [...] XR Chest AP Portable (Final result) Result time:12/22/12838 Final result by Rad Results In Richard [...] no changes from previous EKG EKG Time: 15 Normal sinus rhythm with a rate of 68 ED Diagnoses Final diagnoses Atypical chest pain Epigastric pain Gallstones Disposition: ED Disposition Discharge Condition at discharge: Stable Follow-up Information Follow up With Details Comments Contact Info Jerrell Diego DO Call [address] [facility] [id number] [facility] Emergency Department If symptoms worsen [address] [place] [address] Discharge Medications: New Prescriptions FAMOTIDINE (PEPCID) 20 [...] ED Notes by Mel Barraza RN at 11/16/13 0812 Author: Mel Barraza RN Service: (none) Author Type: Registered Nurse Filed: 12/22/12811 Date of Service: 12/22/12811 Status: Signed Aviation Project Engineer: Mel Barraza RN (Registered Nurse) Bed:06
Expected date:
Expected time:
Means of arrival:
Comments:
docume nted in this encounter Plan of Treatment +--------+---------+ + + + | Date | Type | Specialty | Care Team | Description | +--------+---------+ + + + | 09/10/ | Office | Geriatric Medicine | Mireya Pack, | | 2019 | Visit | | [facility] [address] | | | | | | [address] [place], | | | | | | [place] [address] | | | | | | [phone] | | | | | | | | +--------+---------+ + + + | 09/29/ | Office | Urology | Mireya Pack, | | 2019 | Visit | | [facility] [address] | | | | | | [address] [place], | | | | | | [place] [address] | | | | | | [phone] | | | | | | | | | | | | Toy Wild, | | | | | | [address] [facility] | | | | | | [place] [address] | | | | | | [phone] | | | | | | | [...] Significant gratitude extended to | | Dr. Franok Ramírez for identifying this discordance. | + [...] (500), | | | | | | makeup editor ZAYNAB HUNT | | | | | | (4) on 12/22/2012 | | | | | | 1:30:57 PM | | | | + + + + + + + + | Specimen | + + | | + + + + + | Narrative | Performed At | + + + | [facility] | EXTERNAL LAB | + + + [...]
--- OUTSIDE RECORDS SUMMARY | ~2019-09-09 | XMS | Encounter Summary ---
Demographics + + + | Address | [address] | | | [place] [address] | + + + | Home Phone | | + + + | Preferred Language | Unknown | + + + | Marital Status | | + + + | Orthodoxy Affiliation | 1027 | + + + | Race | Unknown | + + + | Ethnic Group | Unknown | + + + Author + + + | Author | [facility] | | | and [place] | + + + | Organization | [facility] | | | and [place] | + + + | Address | Unknown | + + + | Phone | Unavailable | + + + Support + + + + + | Name | Relationship | Address | Phone | + + + + + | Sammi Kohler | ECON | [place] [address] | | + + + + + Care Team Providers + +------+ + | Care Filling Winder Name | Role | Phone | + +------+ + PCP | Unavailable | + +------+ + Encounter Details +--------+ + + + + | Date | Type | Department | Care Team | Description | +--------+ + + + + | 04/09/ | Emergency | [facility] | Gurvinder Cruz, | Clarissa | | 2014 - | | [facility] | MD [address] | | | | | EMERGENCY CENTER | [place], [place] | | | 04/10/ | | [address] | [address] | | | 2013 | | [place], [place] | [phone] | | | | | [address] | | | | | | [phone] | | | +--------+ + + + [...] Progress Notes Conversion Transaction, Provider Unknown - 04/09/2013 8:35 PM PSTFormatting of this note m ight be different from the original. Case Management by QUINN Wihte at 04/09/132034 Author: QUINN White Service: (none) Author Type: Cocoa Milling Machine Operator Filed: 04/09/132034 Date of Service: 04/09/132034 Status: Signed Dietician: QUINN White (Cocoa Milling Machine Operator) [facility] alert Rcvd pt with a total of 20 ED visits, pt was referred to [facility] due to number of v isits, docume nted in this encounter ED Notes Gurvinder Cruz MD - 04/09/2013 8:41 PM PSTFormatting of this note might be different fr om the original. ED Provider Notes by Gurvinder Cruz MD at 04/09/132040 Author: Gurvinder Cruz MD Service: (none) Author Type: Physician Filed: 04/10/13504 Date of Service: 04/09/132040 Status: Signed Dietician: Gurvinder Cruz MD (Physician) [facility] Department of Emergency Medicine 8:41 PM History of Present Illness Patient Identification Kevyn Guzman is a 57 y.o. male. Patient information was obtained from patient. History/Exam limitations: none. Patient presented to the Emergency Department by: Ambulance Chief Complaint Chief Complaint Patient presents with Hypertension Dizziness Abdominal Pain The patient presents to ED with complaints of dizziness. Onset of symptoms was today, with a waxing and waning course since that time. The patient describes the symptoms as dizziness. The patient also complains of decreased hearing, hypertension, abdominal pain (x 3 weeks, p t states "I'm supposed to have surgery for that"). Patient denies lack of appetite, fever. PCP: TAINA WASHBURN Past Medical History Diagnosis [...] - CHOLECYSTECTOMY; Surgeon: Jevon Vargas DO; Location: [facility] MAIN OR; Service: General; 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; Abdominal surgery Cholecystectomy Skin cancer excision 10/10/2012 Procedure: EXCISION - SKIN CANCER; Surgeon: Sy Fierro MD; Location: [facility] MAIN OR ; Service: Plastics; Laterality: Left; upper arm and upper back w/frozen section Esophagogastroduodenoscopy 03/03/2013 Procedure: ESOPHAGOGASTRODUODENOSCOPY; Surgeon: Howie Gibson MD; Location: [facility] ENDOSCOPY; S ervice: Gastroenterology; 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; Colonoscopy 03/04/2013 Procedure: COLONOSCOPY; Surgeon: Howie Gibson MD; Location: [facility] ENDOSCOPY; Service: Gastroe nterology; 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; Prior to Admission medications Medication Sig Start Date End Date Taking? Authorizing Provider ARIPiprazole (ABILIFY) 10 MG tablet Take 15 mg by mouth nightly. Yes Historical Provider budesonide-formoterol (SYMBICORT) 80-4.5 MCG/ACT inhaler Inhale 2 puffs into the lungs 2 (t wo) times daily. Yes Historical Provider cloNIDine (CATAPRES) 0.2 MG tablet Take 1 tablet by mouth 3 (three) times daily. 03/05/13 Yes Scott Martínez MD clopidogrel (PLAVIX) 75 MG tablet Take 75 mg by mouth daily. Yes Historical Provider diltiazem (CARDIZEM CD) 240 MG 24 hr capsule Take 240 mg by mouth daily. Yes Historical P rovider docusate sodium (COLACE) 100 MG capsule Take 100 mg by mouth nightly. Yes Historical Prov ider famotidine (PEPCID) 20 MG tablet Take 1 tablet by mouth 2 (two) times daily. 12/22/1212/22 Yes Martell Gold MD fenofibrate (TRIGLIDE) 160 MG tablet Take 160 mg by mouth daily. Yes Historical Provider linagliptin (TRADJENTA) 5 MG tablet Take 5 mg by mouth daily. Yes Historical Provider lisinopril (PRINIVIL,ZESTRIL) 40 MG tablet Take 1 tablet by mouth daily. 03/05/13 03/05/14 Juan Martínez MD loperamide (IMODIUM) 2 MG capsule Take 2 mg by mouth as needed. 4 mg after first loose stoo l, then 2 mg after each further loose stool Not to exceed 8 mg per day. Yes Historical Provider LORazepam (ATIVAN) 0.5 MG tablet Take 0.5 mg by mouth every 6 (six) hours as needed. Indica tions: Feeling Anxious Yes Historical Provider nebivolol (BYSTOLIC) 10 MG tablet Take 20 mg by mouth daily. Yes Historical Provider pantoprazole (PROTONIX) 40 MG tablet Take 1 tablet by mouth every morning before breakfast. 03/05/13 03/05/14 Yes Scott Martínez MD paroxetine (PAXIL) 40 MG tablet Take 40 mg by mouth every morning. Yes Historical Provi carlos polyethylene glycol (GLYCOLAX) packet Take 17 g by mouth daily. Yes Historical Provider pravastatin (PRAVACHOL) 20 MG tablet Take 20 mg by mouth nightly. Yes Historical Provider tiotropium (SPIRIVA) 18 MCG inhalation capsule Inhale 18 mcg into the lungs daily. Yes Hi storical Provider Albuterol Sulfate (VENTOLIN HFA IN) Inhale 2 puffs into the lungs as needed. Historical Provider calcium carbonate (TUMS) 500 MG chewable tablet Take 500-1,000 mg by mouth daily as needed. For GERD Historical Provider fluticasone-salmeterol (ADVAIR DISKUS) 250-50 MCG/DOSE AEPB Inhale 1 puff into the lungs ev wilbert 12 (twelve) hours. 09/14/12 Augustine Agosto MD HYDROcodone-acetaminophen (NORCO) 5-325 MG per tablet Take 1 tablet by mouth every 6 (six) hours as needed. Historical Provider insulin aspart (NOVOLOG) 100 UNIT/ML [...] blood sugar. 25 units 03/21/13 Historical Provider nitroGLYCERIN (NITROSTAT) 0.[address] 0.4 mg under the tongue every 5 (five) min utes as needed. Historical Provider No Known Allergies History Social History [...] fever, chills Eyes: Negative for vision changes Ears: Positive for decreased hearing Nose: Negative for congestion, nosebleeds Throat: Negative for sore throat CV/Resp: Positive for hypertension Negative for chest pain, ohjurcoru-ze-wborih, cough GI: Positive for abdominal pain Negative for nausea, vomiting, or diarrhea : Negative for urinary problems Musculoskeletal: Negative for back pain, joint pain Skin: Negative for rash Neuro/Psych: Positive for dizziness Negative for headache Endo/heme/Lymph: Negative for swollen lymph nodes, easy bruising All other systems reviewed and negative except as noted. Physical Exam BP 118/67 | Pulse 60 | Temp 98.1 F (36.7 C) (Oral) | Resp 20 | SpO2 94% Vital signs interpretation: Normal Pulse Oximetry interpretation: Normal General: Alert, in no apparent distress Eyes: Normal inspection, pupils equal and round, non-icteric ENT: Ears: appear to be plugged with cerumen bilaterally Nose normal Pharynx: white patches present Neck: Normal inspection Supple Cardiovascular: Rate and rhythm normal No murmurs Respiratory: Breath sounds normal bilaterally No rales, wheezing or rhonchi Abdomen: Soft, non-tender, non-distended No guarding or rebound Back: Normal inspection Skin: Color normal Warm and dry No rash Neuro: Alert, no AMS No gross motor/sensory deficits Medical Decision Making and Emergency Department Course ED Department Course 8:41 PM Patient presents to ED with complaints of dizziness, decreased hearing, hypertensio n, and abdominal pain x 3 weeks. On exam the patient's ears appears to be plugged with cerum en bilaterally and the pharynx has white patches present, probably caused by pt steroids. My DDx includes, but is not limited to: vertigo, cerumen impaction, dehydration, electrolyte i mbalance, thrush. Will order basic labs, and reevaluate the patient. Will have pt ears irrig ated to remove cerumen. Patient is stable at this time. Labs reviewed: CBC normal. CMP normal other than glucose 177, albumin 3.3, and A/G 0.8. 12:08 AM Pt recheck. Right ear clear and TM normal, left ear still has cerumen present. Per RN, pt requesting to be discharged home. States his hearing is improved. The dizziness may be labyrinthitis. I will treat with meclizine. His lab is satisfactory. He is not Having cardiac issues. 12:40 AM Patient reevaluation. Patient is stable and [...] addressed. Will discharge home with Rx for Antivert. ED Medication Administration from 04/09/20132010 to 04/10/2013 0322 Date/Time Order Dose Route Action Action by 04/09/2013 2228 meclizine (ANTIVERT) tablet 25 mg 25 mg Oral Given Renetta Goode RN Filed Vitals: 04/09/13201104/09/139 04/10/13 0003 04/10/13 0101 BP: 118/67 180/85 180/85 167/72 Pulse: 60 65 64 62 Temp: 98.1 F (36.7 C) TempSrc: Oral Resp: 20 20 16 16 SpO2: 94% 94% 93% 95% Records Reviewed Old medical records. Nursing notes. Nursing notes. Nursing notes reviewed for chief complaint, medications, clinical presentati on and vital signs. Old ED records reviewed (Using the electronic record system of [facility], I car efully reviewed the records with regard to the past medical/surgical history, previous medic ations, and allergies). Laboratory Evaluation Results Procedure Component Value Ref Range Date/Time Complete Metabolic Panel [[id number]] (Abnormal) Collected:04/09/132014 Order Status:Completed Updated:04/09/132244 Specimen Information:Blood SODIUM 139 135 - 143 mmol/L POTASSIUM 3.8 3.5 - 4.9 mmol/L CHLORIDE 103 99 - 109 mmol/L CO2 30 23 - 32 mmol/L ANION GAP AGAP 10 5 - 20 mmol/L GLUCOSE 177 (H) 65 - 99 mg/dL BUN 17 8 - 25 mg/dL CREATININE 1.21 0.70 - 1.30 mg/dL BUN/CREAT 14 CALCIUM 8.9 8.5 - 10.2 mg/dL TOTAL PROTEIN 7.5 6.3 - 8.2 g/dL Albumin 3.3 (L) 3.6 - 5.0 g/dL GLOBULIN 4.2 1.3 - 4.9 g/dL A/G 0.8 (L) 1.0 - 2.4 TBIL 0.4 0.1 - 1.5 mg/dL ALK PHOS 98 35 - 115 U/L AST 27 10 - 45 U/L ALT 29 10 - 65 U/L EGFR >60 >60 mL/min/1.73m2 CBC w Auto Diff [[id number]] (Abnormal) Collected:04/09/132014 Order Status:Completed Updated:04/09/139 Specimen Information:Blood WBC 10.6 3.8 - 11.0 K/uL RBC 4.96 4.20 - 5.70 M/uL HGB 13.8 13.2 - 17.0 g/dL HCT 41.7 39.0 - 50.0 % MCV 84.0 80.0 - 100.0 fl MCH 27.7 27.0 - 34.0 pg MCHC 33.0 32.0 - 35.5 g/dL RDW SD 42.9 37 - 53 fl PLT 253 150 - 400 K/uL MPV 7.8 fl DIFF TYPE AUTOMATED NEUTROPHILS 66.6 % LYMPHOCYTES 20.2 % MONOCYTES 10.6 % EOSINOPHILS 2.2 % BASOPHILS 0.4 % NEUTROPHILS ABS 7.1 1.9 - 7.4 K/uL LYMPHOCYTES ABS 2.1 1.0 - 3.9 K/uL MONOCYTES ABS 1.1 (H) 0 - 0.8 K/uL EOSINOPHILS ABS 0.2 0 - 0.5 K/uL BASOPHILS ABS 0.0 0 - 0.1 K/uL I personally reviewed the lab results and they have been posted to the chart. Pertinent po sitive and negative findings have been addressed appropriately. Radiology and EKG Evaluation Imaging Results None EKG at 2013: Sinus bradycardia. Rate: 59 Intervals unremarkable No significant ST and T waves abnormalities No acute ischemia. Interpreted by Gurvinder Cruz MD at time of service ED Diagnosis Final diagnosis Vertigo, transient Disposition: ED Disposition Discharge Condition at discharge: Stable Follow-up Information Follow up With Details Comments Contact Info CITLALY Kent Call [address] [facility] [phone] [facility] Emergency Department If symptoms worsen [address] [facility] [address] Discharge Medications: New Prescriptions MECLIZINE (ANTIVERT) 25 MG TABLET Take 1 tablet by mouth 3 (three) times daily as neede d (vertigo). Additional Documentation Procedures Attending Note: Documentation assistance provided by Kathryn Melendez (Scribe). Information recorded by the scribe has been reviewed and validated by . Troy laughlin with its contents. MD Gurvinder Cummins MD 04/10/13 0505 onversio n Transaction, Provider Unknown - 04/09/2013 8:11 PM PSTFormatting of this note might be di fferent from the original. ED Notes by Renetta Goode RN at 04/09/132010 Author: Renetta Goode RN Service: (none) Author Type: Registered Nurse Filed: 04/09/132010 Date of Service: 04/09/132010 Status: Signed Dietician: Renetta Goode RN (Registered Nurse) Bed:[facility]
Expected date:
Expected time:
Means of arrival:
Comments:
EMS docume nted in this encounter Plan of Treatment +--------+---------+ + + + | Date | Type | Specialty | Care Team | Description | +--------+---------+ + + + | 09/10/ | Office | Geriatric Medicine | Mireya Pack, | | | 2019 | Visit | | RN HOME CARE [address] | | | | | | [address] [place], | | | | | | [place] [address] | | | | | | [phone] | | | | | | | | +--------+---------+ + + + | 09/29/ | Office | Urology | Mireya Pack, | | | 2019 | Visit | | RN HOME CARE [address] | | | | | | [address] [place], | | | | | | [place] [address] | | | | | | [phone] | | | | | | | | | | | | [place], | | | | | | [address] | | | | | | [place] [address] | | | | | | [phone] | | | | | | | | +--------+---------+ + + + documented as of this encounter Procedures + +--------+ + + + | Procedure Name | Priori | Date/Time | Associated Diagnosis | Comments | | | ty | | | | + +--------+ + + + | EXTERNAL LAB: CBC | Routin | 04/09/2013 | | Results for this | | | e | 8:15 PM | | procedure are in the | | | | PST | | results section. | + +--------+ + + + | COMPREHENSIVE | Routin | 04/09/2013 | | Results for this | | METABOLIC PANEL | e | 8:15 PM | | procedure are in the | | | | PST | | results section. | + +--------+ + + + | ECG 12 LEAD | Routin | 04/09/2013 | | Results for this | | | e | 8:13 PM | | procedure are in the | | | | PST | | results section. | + +--------+ + + + documented in this encounter Results External Lab: CBC (04/09/2013 8:15 PM PST) + + + + + + | Component | Value | Ref Range | Performed | Pathologist | | | | | At | Signature | + + + + + + | WBC | 10.6Comment: Testing | 3.8 - 11.0 K/uL | EXTERNAL | | | | performed at [facility];[address] | | LAB | | | | [address];[place] | | | | | | [address] | | | | + + + + + + | Non- | 4.96Comment: Testing | 4.20 - 5.70 | EXTERNAL | | | Red Blood | performed at [facility];[address] | M/uL | LAB | | | Cells | [address];[place] | | | | | Counted | [address] | | | | + + + + + + | Hemoglobin | 13.8Comment: Testing | 13.2 - 17.0 | EXTERNAL | | | | performed at [facility];[address] | g/dL | LAB | | | | [address];[place] | | | | | | [address] | | | | + + + + + + | Hematocrit, | 41.7Comment: Testing | 39.0 - 50.0 % | EXTERNAL | | | POC | performed at [facility];[address] | | LAB | | | | [address];[place] | | | | | | [address] | | | | + + + + + + | MCV | 84.0Comment: Testing | 80.0 - 100.0 fl | EXTERNAL | | | | performed at [facility];[address] | | LAB | | | | [address];[place] | | | | | | [address] | | | | + + + + + + | MCH | 27.7Comment: Testing | 27.0 - 34.0 pg | EXTERNAL | | | | performed at [facility];[address] | | LAB | | | | [address];[place] | | | | | | [address] | | | | + + + + + + | MCHC | 33.0Comment: Testing | 32.0 - 35.5 | EXTERNAL | | | | performed at [facility];[address] | g/dL | LAB | | | | [address];[place] | | | | | | [address] | | | | + + + + + + | RDW-CV | 42.9Comment: Testing | 37 - 53 fl | EXTERNAL | | | | performed at [facility];[address] | | LAB | | | | [address];[place] | | | | | | [address] | | | | + + + + + + | Platelet | 253Comment: Testing | 150 - 400 K/uL | EXTERNAL | | | Count | performed at [facility];[address] | | LAB | | | Plasma | [address];[place] | | | | | | [address] | | | | + + + + + + | MPV | 7.8Comment: Testing | fl | EXTERNAL | | | | performed at [facility];[address] | | LAB | | | | [address];[place] | | | | | | [address] | | | | + + + + + + | Differentia | AUTOMATEDComment: | | EXTERNAL | | | l Type | Testing performed at | | LAB | | | | [facility];[address];[place] [address] | | | | + + + + + + | % Segmented | 66.6Comment: Testing | % | EXTERNAL | | | | performed at [facility];[address] | | LAB | | | Neutrophils | [address];[place] | | | | | | [address] | | | | + + + + + + | % | 20.2Comment: Testing | % | EXTERNAL | | | Lymphocytes | performed at [facility];[address] | | LAB | | | | [address];[place] | | | | | | [address] | | | | + + + + + + | % Monocytes | 10.6Comment: Testing | % | EXTERNAL | | | | performed at [facility];[address] | | LAB | | | | [address];[place] | | | | | | [address] | | | | + + + + + + | % | 2.2Comment: Testing | % | EXTERNAL | | | Eosinophils | performed at [facility];[address] | | LAB | | | | [address];[place] | | | | | | [address] | | | | + + + + + + | % Basophils | 0.4Comment: Testing | % | EXTERNAL | | | | performed at [facility];[address] | | LAB | | | | [address];[place] | | | | | | [address] | | | | + + + + + + | Absolute | 7.1Comment: Testing | 1.9 - 7.4 K/uL | EXTERNAL | | | Segmented | performed at [facility];[address] | | LAB | | | Neutrophils | [address];[place] | | | | | | [address] | | | | + + + + + + | Absolute | 2.1Comment: Testing | 1.0 - 3.9 K/uL | EXTERNAL | | | Lymphocytes | performed at [facility];[address] | | LAB | | | | [address];[place] | | | | | | [address] | | | | + + + + + + | Absolute | 1.1 (H)Comment: Testing | 0 - 0.8 K/uL | EXTERNAL | | | Monocytes | performed at [facility];[address] | | LAB | | | | [address];[place] | | | | | | [address] | | | | + + + + + + | Absolute | 0.2Comment: Testing | 0 - 0.5 K/uL | EXTERNAL | | | Eosinophils | performed at [facility];[address] | | LAB | | | | [address];[place] | | | | | | [address] | | | | + + + + + + | Absolute | 0.0Comment: Testing | 0 - 0.1 K/uL | EXTERNAL | | | Basophils | performed at [facility];[address] | | LAB | | | | [address];[place] | | | | | | [address] | | | | + + + [...] + +---------+ + + Comprehensive Metabolic Panel (04/09/2013 8:15 PM PST) + + + + + + | Component | Value | Ref Range | Performed | Pathologist | | | | | At | Signature | + + + + + + | Na | 139Comment: Testing | 135 - 143 | EXTERNAL | | | | performed at [facility];[address] | mmol/L | LAB | | | | [address];[place] | | | | | | [address] | | | | + + + + + + | K | 3.8Comment: Testing | 3.5 - 4.9 | EXTERNAL | | | | performed at [facility];[address] | mmol/L | LAB | | | | [address];[place] | | | | | | [address] | | | | + + + + + + | Cl | 103Comment: Testing | 99 - 109 mmol/L | EXTERNAL | | | | performed at [facility];[address] | | LAB | | | | [address];[place] | | | | | | [address] | | | | + + + + + + | CO2 | 30Comment: Testing | 23 - 32 mmol/L | EXTERNAL | | | | performed at [facility];[address] | | LAB | | | | [address];[place] | | | | | | [address] | | | | + + + + + + | Anion Gap | 10Comment: Testing | 5 - 20 mmol/L | EXTERNAL | | | | performed at [facility];[address] | | LAB | | | | [address];[place] | | | | | | [address] | | | | + + + + + + | Glucose, | 177 (H)Comment: Testing | 65 - 99 mg/dL | EXTERNAL | | | Fasting | performed at [facility];[address] | | LAB | | | | [address];[place] | | | | | | [address] | | | | + + + + + + | BUN | 17Comment: Testing | 8 - 25 mg/dL | EXTERNAL | | | | performed at [facility];[address] | | LAB | | | | [address];[place] | | | | | | [address] | | | | + + + + + + | Creatinine | 1.21Comment: Testing | 0.70 - 1.30 | EXTERNAL | | | | performed at [facility];[address] | mg/dL | LAB | | | | [address];[place] | | | | | | [address] | | | | + + + + + + | BUN/Creatin | 14Comment: Testing | | EXTERNAL | | | ine Ratio | performed at [facility];[address] | | LAB | | | | [address];[place] | | | | | | [address] | | | | + + + + + + | Calcium | 8.9Comment: Testing | 8.5 - 10.2 | EXTERNAL | | | | performed at [facility];[address] | mg/dL | LAB | | | | [address];[place] | | | | | | [address] | | | | + + + + + + | Protein, | 7.5Comment: Testing | 6.3 - 8.2 g/dL | EXTERNAL | | | Total | performed at [facility];[address] | | LAB | | | | [address];[place] | | | | | | [address] | | | | + + + + + + | Albumin | 3.3 (L)Comment: Testing | 3.6 - 5.0 g/dL | EXTERNAL | | | | performed at [facility];[address] | | LAB | | | | [address];[place] | | | | | | [address] | | | | + + + + + + | Globulin | 4.2Comment: Testing | 1.3 - 4.9 g/dL | EXTERNAL | | | | performed at [facility];[address] | | LAB | | | | [address];[place] | | | | | | [address] | | | | + + + + + + | A/G Ratio | 0.8 (L)Comment: Testing | 1.0 - 2.4 | EXTERNAL | | | | performed at [facility];[address] | | LAB | | | | [address];[place] | | | | | | [address] | | | | + + + + + + | Bilirubin | 0.4Comment: Testing | 0.1 - 1.5 mg/dL | EXTERNAL | | | Total | performed at [facility];[address] | | LAB | | | | [address];[place] | | | | | | [address] | | | | + + + + + + | ALP, | 98Comment: Testing | 35 - 115 U/L | EXTERNAL | | | External | performed at [facility];[address] | | LAB | | | | [address];[place] | | | | | | [address] | | | | + + + + + + | AST | 27Comment: Testing | 10 - 45 U/L | EXTERNAL | | | | performed at [facility];[address] | | LAB | | | | [address];[place] | | | | | | [address] | | | | + + + + + + | ALT | 29Comment: Testing | 10 - 65 U/L | EXTERNAL | | | | performed at [facility];[address] | | LAB | | | | [address];[place], [place] | | | | | | [address] | | | | + + + [...] | | | | | | at [facility];[address];[place] [address] | | | | + + + [...] + +---------+ + + ECG 12 lead (04/09/2013 8:13 PM PST) + + + + + [...] | | | | with ECG of 22-MAR-2013 | | | | | | 18:54,No significant | | | | | | [...] | | | | | ONLY, -COMPUTER ([id number]), | | | | | | medical editor Keyla Gregory | | | | | | (24) on 04/10/2013 | | | | | | 12:52:38 AM | | | | + + + + + + + + | Specimen | + + | | + + + + + | Narrative | Performed At | + + + | Historically converted procedure from [facility] | EXTERNAL LAB | + + + + +---------+ + + | Performing | Address | City/State/Zipcode | Phone Number | | Organization | | | | + +---------+ + + | EXTERNAL LAB | | | | + +---------+ + + documented in this encounter Visit Diagnoses + + | Diagnosis | + + | Vertigo Dizziness and giddiness | + + documented in this encounter
--- OUTSIDE RECORDS SUMMARY | ~2019-09-09 | XMS | Encounter Summary ---
Demographics + + + | Address | [address] | | | [place] [address] | + + + | Home Phone [...] + + + + + | Sammi Kohelr | ECON | [place] [address] | | + + + + + Care Team Providers + +------+ + | Care Hand Fretted Instrument Maker Name | Role | Phone | + +------+ + | Mireya Pack NP | PCP | | + +------+ + Reason for Visit + +--------+ + | Reason | Onset | Comments | | | Date | | + +--------+ + | Appointment Question | 03/08/ | kayode appt. | | | 2020 | | + +--------+ + Encounter Details +--------+ + + + + | Date | Type | Department | Care Team | Description | +--------+ + + + + | 03/08/ | Telephone | [facility] [place] | Mireya Pack, | Appointment Question | | 2019 | | [facility] | REPORTING PROCESS CONSULTANT [address] | (soon appt. ) | | | | [address] | [address] [place], | | | | | [place], [place] | [place] [address] | | | | | [address] | [phone] | | | | | [phone] | | | +--------+ + + + [...] this encounter Miscellaneous Notes Telephone Encounter - CalvoEulogio llanos - 03/08/2019 8:12 AM PSTDalgoryd, is calling [facility] Appointment Question (sooner appt. ) and would like a call back. Additional Call Details: Patient is requesting a sooner appointment then 03.20.19. Patient is needing one after 03.11.19, but before 03.14.19 so his paperwork for the social security office can be completed. Call patient back at [phone]. If this is a symptom based call, was patient offered triage? Not Applicable If this is a symptom based call and you were unable to immediately transfer the call to a ashley pascual forklift supervisor was caller made aware that if at [...] | | 2019 | Visit | | REPORTING PROCESS CONSULTANT [address] | | | | | | [address] [place], | | | | | | [place] [address] | | | | | | [phone] | | | | | | | | +--------+---------+ + + + | 09/29/ | Office | Urology | Mireya Pack, | | | 2019 | Visit | | REPORTING PROCESS CONSULTANT [address] | | | | | | [address] [place], | | | | | | [place] [address] | | | | | | [phone] | | | | | | | | | | | | Toy Wild, DO | | | | | | [address] | | | | | | [place] [address] | | | | | | [phone] | | | | | | | [...]
--- OUTSIDE RECORDS SUMMARY | ~2019-09-09 | XMS | Encounter Summary ---
Demographics + + + | Address | [address] | | | [place] [address] | + + + | Home Phone | | + + + | Preferred Language | Unknown | + + + | Marital Status | | + + + | Anabaptism Affiliation | 1027 | + + + | Race | Unknown | + + + | Ethnic Group | Unknown | + + + Author + + + | Author | [facility] | | | and [place] | + + + | Organization | [facility] | | | and [place] | + + + | Address | Unknown | + + + | Phone | Unavailable | + + + Support + + + + + | Name | Relationship | Address | Phone | + + + + + | Sammi Kohler | ECON | [place] [address] | | + + + + + Care Team Providers + +------+ + | Care Product Support Engineer Name | Role | Phone | + +------+ + PCP | Unavailable | + +------+ + Encounter Details +--------+ + + + + | Date | Type | Department | Care Team | Description | +--------+ + + + + | 12/04/ | Emergency | [facility] | Mik Kwong, | Closed head injury, | | 2014 | | MEDICAL CENTER | [address] | initial encounter; | | | | EMERGENCY CENTER | [place] [address] | Recurrent falls; | | | | [address] | [phone] | Visual changes | | | | [place], [place] | | | | | | [address] | | | | | | [phone] | | | +--------+ + + + [...] Author: QUINN Richardson Service: (none) Author Type: Kraft Digester Operator Filed: 12/04/13 1150 Date of Service: 12/04/131132 Status: Addendum Technical Developer: QUINN Richardson (Kraft Digester Operator) Related Notes: Original Note by QUINN Richardson (Kraft Digester Operator) filed at 12/04/13 1137 COLTON ALERT: Patient involved with [facility] (ACCP). CM has left a message with Margarita Laura, coordinator for program ([phone]), requesting an u pdate on their services. Nursing is concerned patient may need a higher level of care. 11:48 AM CM spoke with ACCP coordinator and there will be a meeting held on Monday at [facility] to discuss patient's current care. A bank representative for the [employer] will also b e present to assist in coordinating services with the purpose of reducing transfers to hospi nicole and ED visits. The other reason to meet is to help plan with [facility] staff how to provi de patient more supervision. CM is available as needed. docume nted in this encounter ED Notes Conversion Transaction, Provider Unknown - 12/04/2013 11:46 AM PDTFormatting of this note m ight be different from the original. ED Notes by Jaye Meraz at 12/04/13 1146 Author: Jaye Meraz Service: (none) Author Type: Pallet Stone Positioner Filed: 12/04/13 114 Date of Service: 12/04/13 114 Status: Signed Technical Developer: Jaye Meraz (Pallet Stone Positioner) EKG completed, results shown to Dr Varghese Meraz 12/04/13 114 Rubi Frias ARNP - 12/04/2013 11:25 AM PDTFormatting of this note might be different from the o riginal. ED Notes by Rubi Calvo RN at 12/04/131124 Author: Rubi Calvo RN Service: (none) Author Type: Registered Nurse Filed: 12/04/131124 Date of Service: 12/04/131124 Status: Signed Technical Developer: Rubi Calvo RN (Registered Nurse) MD at bedside. Rubi Calvo RN 12/04/131124 Yulisa Knapp MD - 12/04/2013 11:21 AM PDTFormatting of this note might be different from the bobbi ginal. ED Provider Notes by Mik Kwong MD at 12/04/131120 Author: Mik Kwong MD Service: Emergency Department Author Type: Physician Filed: 12/07/13 1343 Date of Service: 12/04/131120 Status: Signed Technical Developer: Mik Kwong MD (Physician) [facility] Department of Emergency Medicine 11:21 AM History of Present Illness Patient Identification Kevyn Guzman is a 57 y.o. male. Patient information was obtained from patient. History/Exam limitations: none. Patient presented to the Emergency Department by: [facility] [place] 1723 Chief Complaint Chief Complaint Patient presents with Fall [facility] usp called EMS for frequent falls. Blurred Vision [...] brought in for observa tion. Per EMS: [facility] PCP: JERRELL GUTIÉRREZ Past Medical History Diagnosis [...] CHOLECYSTECTOMY; Surgeon: Jevon Vargas DO; Location: [facility] MAIN OR; Service: General; 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; Abdominal surgery Cholecystectomy Skin cancer excision 10/10/2012 Procedure: EXCISION - SKIN CANCER; Surgeon: Sy Fierro MD; Location: [facility] MAIN OR ; Service: Plastics; Laterality: Left; upper arm and upper back w/frozen section Esophagogastroduodenoscopy 03/03/2013 Procedure: ESOPHAGOGASTRODUODENOSCOPY; Surgeon: Howie Gibson MD; Location: [facility] ENDOSCOPY; S ervice: Gastroenterology; 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; Colonoscopy 03/04/2013 Procedure: COLONOSCOPY; Surgeon: Howie Gibson MD; Location: [facility] ENDOSCOPY; Service: Gastroe nterology; 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; Upper gastrointestinal endoscopy Skin biopsy Hernia repair 07/03/2013 Procedure: LAPAROSCOPIC - HERNIA - INCISIONAL; Surgeon: Jevon Vargas DO; Location: [facility] MAIN OR; Service: General; 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; Prior to Admission medications Medication Sig Start Date End Date Taking? Authorizing Provider Albuterol Sulfate (VENTOLIN HFA IN) Inhale 2 puffs into the lungs as needed. Historical Provider Lcwjj-L-Eucmpvebiyilw (BEANO) TABS Take 150 Units by mouth [...] 100 mg by mouth nightly. Historical Provider xzylbobut-vwzfdosf-efqcnhyea hydroxide-simethicone Take 40 mLs by mouth daily [...] on file Social History Narrative Lives in long term, IADL, full code Family History Problem Relation Age of Onset Heart disease Father Heart disease Sister Diabetes type II Sister Heart Problems Brother Review of Systems Constitutional: Negative for fever or recent illness Eyes: Positive for blurred vision in L eye Nose: Negative for congestion Throat: Negative for sore throat CV: Negative for chest pain Resp: Positive for cough Negative for knkaehadi-kd-rbvvpc GI: Negative for abdominal pain, nausea, vomiting, [...] Motor strength intact, no deficits Strong symmetric billing spec strength No pronator drift No lower extremity [...] reevaluate the patient. I will have our registered nurse hh case manager consult with the patient. 1:19 PM Patient [...] has been seen 38 times in a [place] ED within the past 12 months . ED Care Guidelines from [facility]: "no controlled substances should be administered in the ED or prescribed from the ED for subjective pain." Laboratory Evaluation Results Procedure Component Value Ref Range Date/Time POC clinitek 10 [[id number]] (Abnormal) Collected: 12/04/13 1408 Order Status: Completed [...] NEGATIVE WBC, UA NEGATIVE NEGATIVE Cardiac Panel [[id number]] (Abnormal) Collected: 12/04/13 1140 Order Status: Completed [...] Keep your appointment on Monday (12/06/13) [address] [facility] [address] [facility] Emergency Department If symptoms worsen [address] [place] [address] Discharge Medications: Discharge Medication List as of [...] Notes by Jv Liriano RN at 12/04/13 4397 Author: Jv Liriano RN Service: (none) Author Type: Registered Nurse Filed: 12/04/131107 Date of Service: 12/04/131107 Status: Signed Technical Developer: Jv Liriano RN (Registered Nurse) Bed: 11 Expected date: Expected time: Means of arrival: Comments: docume nted in this encounter Plan of Treatment +--------+---------+ + + + | Date | Type | Specialty | Care Team | Description | +--------+---------+ + + + | 09/10/ | Office | Geriatric Medicine | Mireya Pack, | | | 2019 | Visit | | [facility] [address] | | | | | | [address] [place], | | | | | | [place] [address] | | | | | | [phone] | | | | | | | | +--------+---------+ + + + | 09/29/ | Office | Urology | Mireya Pack, | | | 2019 | Visit | | [facility] [address] | | | | | | [address] [place], | | | | | | [place] [address] | | | | | | [phone] | | | | | | | | | | | | Toy Wild, DO | | | | | | [address] [facility] | | | | | | [place] [address] | | | | | | [phone] | | | | | | | [...] of | | | | | | -NOV-2013 | | | | | | 05:46,Nonspecific [...] (500), | | | | | | electronic news gathering editor SANYA DUPONT (8) | | | | | | on 12/04/2013 12:11:35 | | | | | | PM | | | | + + + + + + + + | Specimen | + + | | + + + + + | Narrative | Performed At | + + + | Historically converted procedure from [facility] Epic environment | EXTERNAL LAB | [...] EXTERNAL | | | | performed at [facility];[address] | | LAB | | | | [address];[place] | | | | | | [address] | | | | + + + + + -+ | Non- | 4.90Comment: Testing | 4.20 - 5.70 | EXTERNAL | | | Red Blood | performed at [facility];[address] | M/uL | LAB | | | Cells | [address];[place] | | | | | Counted | [address] | | | | + + + + + -+ | Hemoglobin | 12.8 (L)Comment: Testing | 13.2 - 17.0 | EXTERNAL | | | | performed at [facility];888 | g/dL | LAB | | | | [address];[place] | | | | | | [address] | | | | + + + + + -+ | Hematocrit, | 39.3Comment: Testing | 39.0 - 50.0 % | EXTERNAL | | | POC | performed at [facility];[address] | | LAB | | | | [address];[place] | | | | | | [address] | | | | + + + + + -+ | MCV | 80.2Comment: Testing | 80.0 - 100.0 fl | EXTERNAL | | | | performed at [facility];[address] | | LAB | | | | [address];[place] | | | | | | [address] | | | | + + + + + -+ | MCH | 26.1 (L)Comment: Testing | 27.0 - 34.0 pg | EXTERNAL | | | | performed at [facility];[address] | | LAB | | | | [address];[place] | | | | | | [address] | | | | + + + + + -+ | MCHC | 32.6Comment: Testing | 32.0 - 35.5 | EXTERNAL | | | | performed at [facility];888 | g/dL | LAB | | | | [address];[place] | | | | | | [address] | | | | + + + + + -+ | RDW-CV | 40.7Comment: Testing | 37 - 53 fl | EXTERNAL | | | | performed at [facility];[address] | | LAB | | | | [address];[place] | | | | | | [address] | | | | + + + + + -+ | Platelet | 272Comment: Testing | 150 - 400 K/uL | EXTERNAL | | | Count | performed at [facility];[address] | | LAB | | | Plasma | [address];[place] | | | | | | [address] | | | | + + + + + -+ | MPV | 7.6Comment: Testing | fl | EXTERNAL | | | | performed at [facility];[address] | | LAB | | | | [address];[place] | | | | | | [address] | | | | + + + + + -+ | Differentia | AUTOMATEDComment: | | EXTERNAL | | | l Type | Testing performed at | | LAB | | | | [facility];[address];[place] [address] | | | | + + + + + -+ | % Segmented | 75.9Comment: Testing | % | EXTERNAL | | | | performed at [facility];[address] | | LAB | | | Neutrophils | [address];[place] | | | | | | [address] | | | | + + + + + -+ | % | 16.5Comment: Testing | % | EXTERNAL | | | Lymphocytes | performed at [facility];[address] | | LAB | | | | [address];[place] | | | | | | [address] | | | | + + + + + -+ | % Monocytes | 6.1Comment: Testing | % | EXTERNAL | | | | performed at [facility];[address] | | LAB | | | | [address];[place] | | | | | | [address] | | | | + + + + + -+ | % | 0.5Comment: Testing | % | EXTERNAL | | | Eosinophils | performed at [facility];[address] | | LAB | | | | [address];[place] | | | | | | [address] | | | | + + + + + -+ | % Basophils | 1.0Comment: Testing | % | EXTERNAL | | | | performed at [facility];[address] | | LAB | | | | [address];[place] | | | | | | [address] | | | | + + + + + -+ | Absolute | 7.8 (H)Comment: Testing | 1.9 - 7.4 K/uL | EXTERNAL | | | Segmented | performed at [facility];[address] | | LAB | | | Neutrophils | [address];[place] | | | | | | [address] | | | | + + + + + -+ | Absolute | 1.7Comment: Testing | 1.0 - 3.9 K/uL | EXTERNAL | | | Lymphocytes | performed at [facility];[address] | | LAB | | | | [address];[place] | | | | | | [address] | | | | + + + + + -+ | Absolute | 0.6Comment: Testing | 0 - 0.8 K/uL | EXTERNAL | | | Monocytes | performed at [facility];[address] | | LAB | | | | [address];[place] | | | | | | [address] | | | | + + + + + -+ | Absolute | 0.1Comment: Testing | 0 - 0.5 K/uL | EXTERNAL | | | Eosinophils | performed at [facility];[address] | | LAB | | | | [address];[place] | | | | | | [address] | | | | + + + + + -+ | Absolute | 0.1Comment: Testing | 0 - 0.1 K/uL | EXTERNAL | | | Basophils | performed at [facility];[address] | | LAB | | | | [address];[place] | | | | | | [address] | | | | + + + + + -+ | Na | 139Comment: Testing | 135 - 143 | EXTERNAL | | | | performed at [facility];[address] | mmol/L | LAB | | | | [address];[place] | | | | | | [address] | | | | + + + + + -+ | K | 3.7Comment: Testing | 3.5 - 4.9 | EXTERNAL | | | | performed at [facility];[address] | mmol/L | LAB | | | | [address];[place] | | | | | | [address] | | | | + + + + + -+ | Cl | 104Comment: Testing | 99 - 109 mmol/L | EXTERNAL | | | | performed at [facility];[address] | | LAB | | | | [address];[place] | | | | | | [address] | | | | + + + + + -+ | CO2 | 30Comment: Testing | 23 - 32 mmol/L | EXTERNAL | | | | performed at [facility];[address] | | LAB | | | | [address];[place] | | | | | | [address] | | | | + + + + + -+ | Anion Gap | 9Comment: Testing | 5 - 20 mmol/L | EXTERNAL | | | | performed at [facility];[address] | | LAB | | | | [address];[place] | | | | | | [address] | | | | + + + + + -+ | Glucose, | 263 (H)Comment: Testing | 65 - 99 mg/dL | EXTERNAL | | | Fasting | performed at [facility];[address] | | LAB | | | | [address];[place] | | | | | | [address] | | | | + + + + + -+ | BUN | 20Comment: Testing | 8 - 25 mg/dL | EXTERNAL | | | | performed at [facility];[address] | | LAB | | | | [address];[place] | | | | | | [address] | | | | + + + + + -+ | Creatinine | 1.12Comment: Testing | 0.70 - 1.30 | EXTERNAL | | | | performed at [facility];[address] | mg/dL | LAB | | | | [address];[place] | | | | | | [address] | | | | + + + + + -+ | BUN/Creatin | 18Comment: Testing | | EXTERNAL | | | ine Ratio | performed at [facility];[address] | | LAB | | | | [address];[place] | | | | | | [address] | | | | + + + + + -+ | Calcium | 9.1Comment: Testing | 8.5 - 10.2 | EXTERNAL | | | | performed at [facility];[address] | mg/dL | LAB | | | | [address];[place] | | | | | | [address] | | | | + + + + + -+ | Protein, | 7.0Comment: Testing | 6.3 - 8.2 g/dL | EXTERNAL | | | Total | performed at [facility];[address] | | LAB | | | | [address];[place] | | | | | | [address] | | | | + + + + + -+ | Albumin | 3.2 (L)Comment: Testing | 3.6 - 5.0 g/dL | EXTERNAL | | | | performed at [facility];[address] | | LAB | | | | [address];[place] | | | | | | [address] | | | | + + + + + -+ | Globulin | 3.9Comment: Testing | 1.3 - 4.9 g/dL | EXTERNAL | | | | performed at [facility];[address] | | LAB | | | | [address];[place] | | | | | | [address] | | | | + + + + + -+ | A/G Ratio | 0.8 (L)Comment: Testing | 1.0 - 2.4 | EXTERNAL | | | | performed at [facility];[address] | | LAB | | | | [address];[place] | | | | | | [address] | | | | + + + + + -+ | Bilirubin | 0.2Comment: Testing | 0.1 - 1.5 mg/dL | EXTERNAL | | | Total | performed at [facility];[address] | | LAB | | | | [address];[place] | | | | | | [address] | | | | + + + + + -+ | ALP, | 85Comment: Testing | 35 - 115 U/L | EXTERNAL | | | External | performed at [facility];[address] | | LAB | | | | [address];[place] | | | | | | [address] | | | | + + + + + -+ | AST | 20Comment: Testing | 10 - 45 U/L | EXTERNAL | | | | performed at [facility];[address] | | LAB | | | | [address];[place] | | | | | | [address] | | | | + + + + + -+ | ALT | 23Comment: Testing | 10 - 65 U/L | EXTERNAL | | | | performed at [facility];[address] | | LAB | | | | [address];[place] | | | | | | [address] | | | | + + + [...] | | | | | | at [facility];[address];[place] [address] | | | | + + + + + -+ | CK, Total | 80Comment: Testing | 55 - 400 U/L | EXTERNAL | | | | performed at [facility];[address] | | LAB | | | | [address];[place] | | | | | | [address] | | | | + + + [...] | | | | | performed at [facility];[address] | | | | | | [address];[place] | | | | | | [address] | | | | + + + + + -+ | aPTT, | 22 (L)Comment: Testing | 23 - 32 seconds | EXTERNAL | | | Patient | performed at [facility];[address] | | LAB | | | | [address];[place] | | | | | | [address] | | | | + + + + + -+ | CK-MB | 2.1Comment: Testing | 0.5 - 3.6 ng/mL | EXTERNAL | | | | performed at [facility];[address] | | LAB | | | | [address];[place] | | | | | | [address] | | | | + + + [...]
--- OUTSIDE RECORDS SUMMARY | ~2019-09-09 | XMS | Encounter Summary ---
Demographics + + + | Address | [address] | | | [place] [address] | + + + | Home Phone | | + + + | Preferred Language | Unknown | + + + | Marital Status | | + + + | Shinto Affiliation | 1027 | + + + | Race | Unknown | + + + | Ethnic Group | Unknown | + + + Author + + + | Author | [facility] | | | and [place] | + + + | Organization | [facility] | | | and [place] | + + + | Address | Unknown | + + + | Phone | Unavailable | + + + Support + + + + + | Name | Relationship | Address | Phone | + + + + + | Sammi Kohler | ECON | [place] [address] | | + + + + + Care Team Providers + +------+ + | Care Legal Collector Name | Role | Phone | + +------+ + | Mireya Pack NP | PCP | | + +------+ + Encounter Details +--------+ + + + + | Date | Type | Department | Care Team | Description | +--------+ + + + + | 05/29/ | Skilled | [facility] | Mireya Pack, | Type 2 diabetes | | 2020 | Nursing | [facility] | [facility] [address] | mellitus with | | | Facility | [address] | [address] [place], | hyperglycemia, with | | | | [place], [place] | [place] [address] | long-term current | | | | [address] | [phone] | use of insulin (HCC) | | | | [phone] | | (Primary Dx); | | | [...] for B P > 160/90 Please call [facility] [phone] if any medical needs and we can [...] is a 63 y.o. male Resident of [facility] with a qualifying stay at [facility] from to 05-17-2019, presented with fall. Admitted for fall from ground level. Patient t o continue on Eliquis, unless hematoma expands. He is to continue on Coreg and Apixiban for a-fib. Discharged to SNF for PT/OT, medication management and correction. Past Medical History: Diagnosis Date Acute pulmonary [...] Location: [facility]COPY; Service: Gastroen terology; 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; HERNIA REPAIR 07/03/2013 Procedure: LAPAROSCOPIC - HERNIA - INCISIONAL; Surgeon: Jevon Vargas DO; Location: [facility] MAIN OR; Service: General; 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; KNEE SURGERY rt knee, patella LEG SURGERY LLE OTHER SURGICAL HISTORY UNLISTED PROCEDURE ARTHROSCOPY OTHER SURGICAL HISTORY Left 05/05/2014 SKIN LESION EXCISION - Procedure: EXCISION - LESION - FROZEN SECTION; Surgeon: Sy murcia MD; Location: [facility] OR; Service: Plastics; Laterality: Left; forearm SKIN BIOPSY SKIN CANCER EXCISION Left 10/10/2012 Procedure: EXCISION - SKIN CANCER; Surgeon: Sy Fierro MD; Location: [facility]; Service: Plastics; Laterality: Left; upper arm and upper back w/frozen section UPPER GASTROINTESTINAL ENDOSCOPY UPPER GASTROINTESTINAL ENDOSCOPY 03/03/2013 Procedure: ESOPHAGOGASTRODUODENOSCOPY; Surgeon: Howie Gibson MD; Location: [facility]; Se rvice: Gastroenterology; Laterality: [...] Lives alone x 1 wk, moved from [facility], , 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 2 [...] PLT 207 05/18/2019 No results found for: [id number] No results found for: FOLATE No results [...] found for: CHOLHDL No components found for: [id number], PTHINT No results found for: DIGOXIN No [...] and prescriptions and discharge paperwork. Myriam Mcconnell Ms dical Wrapper Stemmer Hand - 05/30/2019 8:00 AM PDTPatient successfully contacted, he states that he c annot do a virtual visit once I explained what a virtual visit consist of, but states that h e can do a telephonic visit, would that be okay ? Myriam Mcconnell Medical Assistant - 05/30/2019 8:00 AM PDTAttempted to call patient x2 and emergency contactSammi. Awaiting call back. docum ented in this encounter Plan of Treatment +--------+---------+ + + + | Date | Type | Specialty | Care Team | Description | +--------+---------+ + + + | 09/10/ | Office | Geriatric Medicine | Mireya Pack, | | 2019 | Visit | | [facility] [address] | | | | | | [address] [place], | | | | | | [place] [address] | | | | | | [phone] | | | | | | | | +--------+---------+ + + + | 09/29/ | Office | Urology | Mireya Pack, | | | 2019 | Visit | | [facility] [address] | | | | | | [address] [place], | | | | | | [place] [address] | | | | | | [phone] | | | | | | | | | | | | Toy Wild, DO | | | | | | [address] | | | | | | [place] [address] | | | | | | [phone] | | | | | | | [...]
--- OUTSIDE RECORDS SUMMARY | ~2019-09-09 | XMS | Encounter Summary ---
Demographics + + + | Address | [address] | | | [place] [address] | + + + | Home Phone | | + + + | Preferred Language | Unknown | + + + | Marital Status | | + + + | Hindu Affiliation | 1027 | + + + | Race | Unknown | + + + | Ethnic Group | Unknown | + + + Author + + + | Author | [facility] | | | and [place] | + + + | Organization | [facility] | | | and [place] | + + + | Address | Unknown | + + + | Phone | Unavailable | + + + Support + + + + + | Name | Relationship | Address | Phone | + + + + + | Sammi Kohler | ECON | [place] [address] | | + + + + + Care Team Providers + +------+ + | Care Bulldozer Mechanic Name | Role | Phone | + +------+ + | Mireya Pack NP | PCP | | + +------+ + Reason for Visit + +--------+ + | Reason | Onset | Comments | | | Date | | + +--------+ + | TCM - Hosp FU | 01/17/ | | | | 2019 | | + +--------+ + Encounter Details +--------+ + + + + | Date | Type | Department | Care Team | Description | +--------+ + + + + | 01/17/ | Telephone | [facility] | Sanjuanita Rodriguez RN | TCM - Hosp FU | | 2018 | | WIRE WEAVER CLOTH | | | | | | MANAG[address] | | | | | | [address] | | | | | | [facility] [place] | | | | | | [address] | | | | | | [phone] | | | +--------+ + + + [...] Miscellaneous Notes Telephone Encounter - Silva Garcia Lining Marker - 02/01/2019 9:37 AM PSTFormatt ing of [...] home from the ED but it was [facility] because the ambulance wouldn't take him to [facility]" Patient Reported Symptoms: (use disease specific dot phrases for CAD/MO, CHF, COPD, DM, PNA , or Sepsis) Follow up: Will forward to primary care provider to verify instructions for Novolog Will send to [facility] for follow up in 2 weeks to ask about capillary blood glucose read ings as well as to see if patient has increased his Levemir dose to 60 units nightly. Patient questions/concerns needing RNCM review: Patient states the he went to [facility] for elevated BP-216/66 and vomiting. He [...] Time Provider Department Center 02/18/2019 2:30 PM [facility] [place] [facility] [place] [facility] [place] [facility] 03/26/2019 8:30 AM DO TATUM Thomas 04/03/2019 1:30 PM NORM White RECOMMENDATION Forwarded to RNCM for follow up Provided patient with contact information for RNCM, encouraged to call with any questions/c oncerns. ele phone Encounter - Sanjuanita Rodriguez RN - 01/17/2019 11:16 AM PST Call placed to doug Bagley name and date of Spoke briefly with [...] Levemir insulin increased to 60 units geo tly on 12/26/2018, I have explained this time him and he always states that he understands, but he is not implementing this change and his blood sugar results remain uncontrolled. I al so do not see directions for sliding scale coverage of his Novolog, will verify with his [facility] provider. Has caregivers that come into his home for 2 hours daily, but they do not help with medi cations, patient is independent in this. Follow up: Will forward to primary care provider to verify instructions for Novolog Will send to [facility] for follow up in 2 weeks to [...] | | 2019 | Visit | | PATHOLOGY MANAGER [address] | | | | | | [address] [place], | | | | | | [place] [address] | | | | | | [phone] | | | | | | | | +--------+---------+ + + + | 09/29/ | Office | Urology | Mireya Pack, | | | 2019 | Visit | | PATHOLOGY MANAGER [address] | | | | | | [address] [place], | | | | | | [place] [address] | | | | | | [phone] | | | | | | | | | | | | Toy Wild, | | | | | | [address] | | | | | | [place] [address] | | | | | | [phone] | | | | | | | | +--------+---------+ + + + documented as of this encounter Visit Diagnoses Not on filedocumented in this encounter
--- OUTSIDE RECORDS SUMMARY | ~2019-09-09 | XMS | Encounter Summary ---
Demographics + + + | Address | [address] | | | [place] [address] | + + + | Home Phone [...] + | Sammi Kohler | ECON | [place] [address] | | + + + + + Care Team Providers + +------+ + | Care Tank Car Cleaner Name | Role | Phone | + [...] | | | EMERGENCY CENTER | [address] [place], [place] | uncontrolled (HCC); | | | | [address] | [address] | Hyperglycemia | | | | [place], [place] | [phone] | | | | | [address] | | | | | | [phone] | | | +--------+ + + + [...] Notes by Suresh Marin RN at 02/21/15 4855 Author: Suresh Marin RN Service: (none) Author Type: Registered Nurse Filed: 01/2338 Date of Service: 02/21/152337 Status: Signed Landscape Contractor: Suresh Marin, RN (Registered Nurse) Pt awake alert. Resting quietly . No complaints voiced. Pt to looby to wait for ride home v ia cab, Suresh Marin RN 02/21/152338 odges , Ashu Leyva MD - 02/21/2015 10:26 PM PSTFormatting of this note might be different from th e original. ED Provider Notes by Ashu Bobo MD at 02/21/152225 Author: Ashu Bobo MD Service: -Emergency Author Type: Physician Filed: 02/22/15 0135 Date of Service: 02/21/152225 Status: Signed Landscape Contractor: Ashu Bobo MD (Physician) Procedures Additional Documentation Procedures [facility] Department of Emergency Medicine History of Present Illness Patient Identification Kevyn Guzman is a 59 y.o. male. Patient information was obtained from patient, EMS personnel and past medical records. History/Exam limitations: none. Patient presented to the Emergency Department by: [facility] 9-3 Chief Complaint Chief Complaint Patient presents [...] EMS arrival. EMS recommended watching BG [facility] but pt wanted to come to the ED. Pt seen in ED earlier for hyperglycemia. Patient denies: vomiting, abdominal pain PCP: JERRELL GUTIÉRREZ Past Medical History Diagnosis Date Diabetes mellitus type II Atrial fibrillation (HCC) Hypertension Hyperlipidemia Anxiety Depression Renal failure ARF (acute renal failure) ([facility]) 03/02/2013 COPD (chronic obstructive pulmonary disease) ([facility]) 03/02/2013 hypoxemia on 2 lts nc Development [...] pain Stroke (HCC) TIA (transient ischemic attack) [facility] (current) use of 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 Past Surgical History Procedure Laterality Date Unlisted procedure arthroscopy Knee surgery rt knee, patella Leg surgery LLE Colonoscopy Cholecystectomy, laparoscopic 09/12/2012 Procedure: LAPAROSCOPIC - CHOLECYSTECTOMY; Surgeon: Jevon Vargas DO; Location: [facility]; Service: General; 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; Abdominal surgery Cholecystectomy Skin cancer excision 10/10/2012 Procedure: EXCISION - SKIN CANCER; Surgeon: Sy Fierro MD; Location: [facility] ; Service: Plastics; Laterality: Left; upper arm and upper back w/frozen section Esophagogastroduodenoscopy 03/03/2013 Procedure: ESOPHAGOGASTRODUODENOSCOPY; Surgeon: Howie Gibson MD; Location: [facility]; S ervice: Gastroenterology; 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; Colonoscopy 03/04/2013 Procedure: COLONOSCOPY; Surgeon: Howie Gibson MD; Location: [facility]; Service: Gastroe nterology; 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; Upper gastrointestinal endoscopy Skin biopsy Hernia repair 07/03/2013 Procedure: LAPAROSCOPIC - HERNIA - INCISIONAL; Surgeon: Jevon Vargas DO; Location: [facility]; Service: General; 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; Skin lesion excision Left 05/05/2014 Procedure: EXCISION - LESION - FROZEN SECTION; Surgeon: Sy Fierro MD; Location: [facility]; Service: Plastics; Laterality: Left; forearm Prior to Admission medications Medication Sig Start Date End Date Taking? Authorizing Provider Albuterol Sulfate (VENTOLIN HFA IN) Inhale 2 puffs into the lungs as needed. 108 mcg/act Historical Provider Ezuqe-A-Fldkngztmajwo (BEANO) TABS Take 150 Units by mouth [...] mouth daily with breakfast. 05/08/14 05/08/15 Mervat Flowres DO calcium carbonate (TUMS) 500 MG chewable [...] 100 mg by mouth nightly. Historical Provider wgzigabqq-aljcnfix-xhfjvxjcy hydroxide-simethicone Take 40 mLs by mouth daily [...] concerns about the accuracy of pt's glucometer. Di scussed this with pt and it is [...] Info Jerrell Gutiérrez DO In [address] [facility] [address] Discharge Medications: Discharge Medication List as of 02/21/2015 11:03 PM Ashu Bobo MD 02/22/155 onversion Transa ction, Provider Unknown - 02/21/2015 10:04 PM PST ED Notes by Suresh Marin RN at 02/21/152203 Author: Suresh Marin RN Service: (none) Author Type: Registered Nurse Filed: 02/21/152205 Date of Service: 02/21/152203 Status: Signed Landscape Contractor: Suresh Marin RN (Registered Nurse) Pt here [...] 02/21/152200 Date of Service: 02/21/152200 Status: Signed Landscape Contractor: Suresh Marin RN (Registered Nurse) BG CASH APPLICATIONS ANALYST 204, Pt took 35 U novalog 45 min CASH APPLICATIONS ANALYST Suresh Marin RN 02/21/152200 onver ivana Transaction, Provider Unknown - 02/21/2015 9:58 PM PST ED Notes by Ivonne Hernandez RN at 02/21/152157 Author: Ivonne Hernandez RN Service: (none) Author Type: Registered Nurse Filed: 02/21/152157 Date of Service: 02/21/152157 Status: Signed Landscape Contractor: Ivonne Hernandez RN (Registered Nurse) Bed: 12 Expected date: Expected time: Means of arrival: Comments: 1923 docume nted in this encounter Plan of Treatment +--------+---------+ + + + | Date | Type | Specialty | Care Team | Description | +--------+---------+ + + + | 09/10/ | Office | Geriatric Medicine | Mireya Pack, | | | 2019 | Visit | | POULTRY SCIENTIST [address] | | | | | | [address] [place], | | | | | | [place] [address] | | | | | | [phone] | | | | | | | | +--------+---------+ + + + | 09/29/ | Office | Urology | Mireya Pack, | | | 2019 | Visit | | POULTRY SCIENTIST [address] | | | | | | [address] [place], | | | | | | [place] [address] | | | | | | [phone] | | | | | | | | | | | | Toy Wild, DO | | | | | | [address] | | | | | | [place] [address] | | | | | | [phone] | | | | | | | [...] | | | Fingerstick | performed at [facility];8 | | LAB | | | | [place]anna [place] | | | | | | [address] | | | | + + + [...]
--- OUTSIDE RECORDS SUMMARY | ~2019-09-09 | XMS | Encounter Summary ---
Demographics + + + | Address | [address] | | | [place] [address] | + + + | Home Phone [...] + | Sammi Kohler | ECON | [place] [address] | | + + + + + Care Team Providers + +------+ + | Care Wire Weaver Cloth Name | Role | Phone | + +------+ + PCP | Unavailable | + +------+ + Encounter Details +--------+ + + + + | Date | Type | Department | Care Team | Description | +--------+ + + + + | 12/16/ | Emergency | [facility] | | | | 2014 | | MEDICAL CENTER | | | | | | EMERGENCY CENTER | | | | | | [address] | | | | | | [place], [place] | | | | | | [address] | | | | | | [phone] | | | +--------+ + + + [...] | | 2019 | Visit | | POLISHER ALUMINUM [address] | | | | | | [address] [place], | | | | | | [place] [address] | | | | | | [phone] | | | | | | | | +--------+---------+ + + + | 09/29/ | Office | Urology | Mireya Pcak, | | | 2019 | Visit | | POLISHER ALUMINUM [address] | | | | | | [address] [place], | | | | | | [place] [address] | | | | | | [phone] | | | | | | | | | | | | Toy Wild, DO | | | | | | [address] | | | | | | [place] [address] | | | | | | [phone] | | | | | | | | +--------+---------+ + + + documented as of this encounter Visit Diagnoses Not on filedocumented in this encounter"
--- OUTSIDE RECORDS SUMMARY | ~2019-09-09 | XMS | Encounter Summary ---
Demographics + + + | Address | [address] | | | [place] [address] | + + + | Home Phone | | + + + | Preferred Language | Unknown | + + + | Marital Status | | + + + | Hinduism Affiliation | 1027 | + + + | Race | Unknown | + + + | Ethnic Group | Unknown | + + + Author + + + | Author | [facility] | | | and [place] | + + + | Organization | [facility] | | | and [place] | + + + | Address | Unknown | + + + | Phone | Unavailable | + + + Support + + + + + | Name | Relationship | Address | Phone | + + + + + | Sammi Kohler | ECON | [place] [address] | | + + + + + Care Team Providers + +------+ + | Care Clerical Warehouseman Name | Role | Phone | + +------+ + PCP | Unavailable | + +------+ + Encounter Details +--------+ + + + + | Date | Type | Department | Care Team | Description | +--------+ + + + + | 05/06/ | Hospital | [facility] | Agustín Box MD | Paresthesias; | | 2015 - | Encounter | MEDICAL CENTER | [address] | Shoulder contusion, | | | | CLINICAL DECISION | [place] [address] | left, initial | | 05/07/ | | [address] | [phone] | encounter; Acute | | 2014 | | [place], [place] | | left-sided weakness; | | | | [address] | | CKD (chronic kidney | | | | [phone] | | disease); | | | | [...] 1132 Date of Service: 05/07/141834 Status: Signed Assembler Handbags: Lorna Looney MD (Physician) Related Notes: Original Note by Lorna Looney MD (Physician) filed at 05/07/14 3108 [facility] Service: Hospitalist Physician Discharge Summary Patient ID: [...] st ates he does not have a lead mechanic and does not know if he has [...] CHOLECYSTECTOMY; Surgeon: Jevon Vargas DO; Location: [facility] MA[facility] OR; Service: General; 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; Abdominal surgery Cholecystectomy Skin cancer excision 10/10/2012 Procedure: EXCISION - SKIN CANCER; Surgeon: Sy Fierro MD; Location: [facility] ; Service: Plastics; Laterality: Left; upper arm and upper back w/frozen section Esophagogastroduodenoscopy 03/03/2013 Procedure: ESOPHAGOGASTRODUODENOSCOPY; Surgeon: Howie Gibson MD; Location: [facility]COPY; S ervice: Gastroenterology; 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; Colonoscopy 03/04/2013 Procedure: COLONOSCOPY; Surgeon: Howie Gibson MD; Location: [facility] END[facility]COPY; Service: Gastroe nterology; 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; [...] TV A Tracy: 0.55 m/s TV Dec [place]: 3.25 m/s2 TV De c Time: 242.45 ms TV E Tracy: 0.78 m/s TV E/A Ratio: 1.42 Pct: KVW Authenticat ed by: Marcelino Edgar MD [...] protocol were acquired without contra st. Noncontrast jxoi-ya-mqfyrn MRA was acquired. Multiplanar MIP reconstructions were [...] hours. No results for input(s): PHART, PO2ART, TSG2YTV, D8KOJOUT, BEART in the last 168 hours. Recent Labs Lab 05/06/14526 APTT 27 INR 1.0 No results for input(s): TSH, T3FREE, FREET4 in the last 168 hours. Recent Labs Lab 05/06/14526 CKTOTAL 110 CKMBINDEX 1.8 Disposition: home Follow up: Edin Gutiérrez, DO [address] [facility] [id number] In 2 days [facility] Emergency Department [address] [facility] [address] If symptoms worsen, As needed Aakash Rhodes MD [address] [facility] [id number] Schedule an appointment as soon as possible for a visit in 1 week Michael Sims MD [address] [facility] [facility] [id number] Schedule an appointment as soon as possible [...] tablet Refills: 0 Commonly known as: LaMICtal joualpujz-zgjjgyhv-vcmgsdwbz hydroxide-simethicone Refills: 0 LORazepam 1 MG tablet [...] are the prescriptions that you need to picker box operator. You may get the following medications [...] 05/07/141939 Date of Service: 05/07/141938 Status: Signed Assembler Handbags: Mel Hastings RN (Registered Nurse) Pt discharged to [facility] via [facility]. Discharge orders faxed to facility. [facility] reji re of discharge this evening. Answered all questions. Mel Hastings RN onver ivana Transaction, Provider Unknown - 05/07/2014 6:39 PM PDT Progress Notes by Di Mcleod RN at 05/07/141838 Author: Di Mcleod RN Service: (none) Author Type: Registered Nurse Filed: 05/07/141841 Date of Service: 05/07/141838 Status: Signed Assembler Handbags: Di Mcleod RN (Registered Nurse) VSS this shift, no C/O pain of discomfort. Eating and drinking without difficulty. onver ivana Transaction, Provider Unknown - 05/07/2014 9:30 AM PDT Therapy Progress Note by Arlin Flores PT at 05/07/14 5526 Author: Arlin Bodde, PT Service: (none) Author Type: Physical Therapist Filed: 05/07/14 1024 Date of Service: 05/07/14929 Status: Signed Assembler Handbags: Arlin Flores PT (Physical Therapist) 05/07/14929 PT [...] patient is safe to dc back to [facility] once BP/medically stable. Pt. supine [...] services Recommendation Recommendations Prior Setting onver ivana Badillo, Provider Unknown - 05/07/2014 6:15 AM PDT Nurse Progress Note by Mayelin Kim RN at 05/07/14614 Author: Mayelin Kim RN Service: (none) Author Type: Registered Nurse Filed: 05/07/14 0617 Date of Service: 05/07/14 0615 Status: Signed Assembler Handbags: Mayelin Kim RN (Registered Nurse) Pt had [...] Date of Service: 05/06/14 1520 Status: Addendum Assembler Handbags: Arlin Flores PT (Physical Therapist) Related Notes: [...] forward trunk lean) Maximal Ambulation Distance (feet) [id number]; 1x80ft Total Ambulation Distance (feet) 580ft Distance limited by? Therapist/staff discretion Pattern Alternating;Wide base Assistive Device None Stairs Assistance Standby assist Number of Stairs 1 flight Number of stairs limited by? Patient's ability (SOB;) Stair Management Technique Rail on right ascending;Igya-dexb-fdsi;Step-to (R rail descend, step-to descend; Advised Pt [...] Barriers to Discharge Cognitive Deficits Impacting Functional Drew;Physical Deficit s Impacting Functional Drew Functional Limitation - G Codes Mobility: Walking [...] Notes by Jenn Flores RN at 05/06/14 1299 Author: Jnen Flores RN Service: (none) Author Type: Registered Nurse Filed: 05/06/14 6019 Date of Service: 05/06/14 863 Status: Signed Assembler Handbags: Jenn Flores RN (Registered Nurse) Patient admitted from ED without IV. IV started and skin assessment performed. Patient repo rts that he had a cyst removed from his left forearm on 05/05/14 and is to keep the tape over the incision on for two weeks until he follows up with the doctor at that time. Patient ref used to let me remove tape for a picture. Wound care consult ordered. Patient currently deny ing pain and vitals are stable. Will continue to monitor. Jenn Flores RN onver ivana Transaction, Provider Unknown - 05/06/2014 2:14 PM PDT Therapy Progress Note by TORY Chavira at 05/06/14 1414 Author: TORY Chavira Service: (none) Author Type: Occupational Therapist Filed: 05/06/14 1547 Date of Service: 05/06/141413 Status: Signed Assembler Handbags: TORY Chavira (Occupational Therapist) 05/06/14 1414 Precautions Other Precautions fall risk Home Environment Type of Home Assisted living ([facility]) Home Exterior Layout Entry steps none Home Interior Layout Lives on main level with bedroom/bathroom Bathroom Shower/Tub Tub/shower unit Bathroom Toilet Raised Bathroom Equipment Grab bars in shower/bath;Grab bars outside of shower/bath;Shower chair;H and-held shower head;Grab bars at toilet Bathroom Accessibility Accessible to equipment needs Home Equipment Walker front wheeled;Shower head hand held Prior Function Level of Drew Independent with functional mobility;Assist with ADLs;Assist with IAD Ls Lives With (shares space with a roommate (share a bathrm)) Receives Help From Other (Comment) (LONG TERM staff) ADL Assistance Needs assistance Bath Moderate assist Dressing Moderate assist Grooming Minimal assist (for shaving) Feeding Independent Home ADL's (done by LONG TERM staff) Employment Retired for disability;On disability Leisure Hobbies-yes (Comment) (Learnerator-kaela cameron) Comments Pt. receives all 3 meals [...] chair;Supervision;With adaptive equipment LE Dressing Adaptive Equipment Step Down Specialist;Sock aid Functional Transfer Goals Pt Will Perform All Functional Transfers With supervision Plan Treatment Interventions ADL retraining;Functional transfer training;Functional dynamic acti vities;UE strengthening;Therapeutic exercises;Endurance training;Patient/Family training;Equ ipment eval/education;Compensatory technique education OT Frequency QD;5x/wk Requires OT Follow Up Awaiting tx order Recommendation Recommendation Return to prior living conditions ([facility] staff to assist with ADLs/IADLs) Equipment Recommended Step Down Specialist;Sock aid;Sponge long handled OT Ready for Discharge Yes Education Completed: Education Topic: OT role, ADLs, AE recommendations Completed with: Patient Completed by: Written Material, Verbal Education, Demonstration Response to Education: Stated Understanding, Returned Demonstration, Reinforcement Elisabeth mcdonough for Education Understanding Occupational Therapy Plan: Continue OT treatment per POC-Q/5x/wk The following recommendations are made for d/c planning at this time: LONG TERM--return to prior living with assist from [facility] staff Barriers to d/c at this time include: Equipment needs laborer poultry hatchery, sockaid, shower brush Physical deficits impacting functional [...] of moderate assist for lower body dressing, / FIM le tracy of minimal assist for transfer from supine to EOB; / FIM supervision onver ivana Rodríguezaction, Provider Unknown - 05/06/2014 12:46 PM PDT Progress Notes by Asher Matson RPH at 05/06/14 124 Author: Asher Matson RPH Service: Pharmacy Author Type: Pharmacist Filed: 05/06/14 1246 Date of Service: 05/06/141245 Status: Signed Assembler Handbags: Asher Matson RPH (Pharmacist) Renal Dosing Monitoring: [...] Author: QUINN Lea Service: (none) Author Type: Director Compliance Filed: 05/06/14 1002 Date of Service: 05/06/14 100 Status: Signed Assembler Handbags: QUINN Lea (Director Compliance) This pt is case managed by the [facility] Care Program. The pt's care plan guidel andrei are as follows. Please contact the Emergency Department Wash Box Operator for assistance as needed Care Recommendation: Norah has a printed Crisis Plan at the Assisted Living Facility that he is to follow befo re coming to the ED for non life-threatening issues. Please discuss with Norah when he pres ents to the ED The following guidelines were formulated by the ED Care Guidelines Committee of the [facility] Consistent Care Program on May 21, 2013. No controlled substances should be administered in the ED or prescribed from the ED for sub jective pain. Past Medical & Surgical History: Primary Care Provider (PCP) is CRUZITO GUTIÉRREZ DO at [phone] . Notify PCP if givi ng any additional narcotics for objective findings. PCP supports enrollment in the [facility] Consistent Care Program. Medical History: Diabetes-He is on a sliding scale after meals, routine insulin before meals and takes Lantu s at night. A1C April, = 7.9%. He was referred to an steel spar operator in February, . Chest Pain- Coronary Angiography [...] at the GE junction (requiring management in [place] at ), rectal ulcer and internal hemorrhoids. Hernia- He has been referred to Dr. Vargas. Problem List: He needs to make regular visits to see his PCP in light of his chronic conditions. This patient is developmentally delayed and has multiple chronic conditions and providers. He would benefit from having a Wash Box Operator assist him in coordinating his care. There is an alternate plan in place for Norah- He may take a taxi (paid for my ACCP) to the Urgent Care Clinic ([facility]) for evaluation instead of the ED. The have been provide d his pertinent medical records. Norah and the [facility] are aware of this plan. History of Behavioral Health Conditions: He has depression and anxiety- This is managed by his PCP. He takes Paxil and abilify. He has been referred to [facility] in February. According to [facility], he never [facility] [place] [facility]. Patient has now been scheduled twice and cancels at the last minute. Pain/Opioid Agreement: Norah has an order at the Assisted Living Facility for hydrocodone as needed. He does not have a diagnosis of chronic pain. Please see NURSE RN BSN for prescribing history. Social History or Identified Risk: - Fall Risk - Non adherence - Transportation Issues Social History: Norah lives at [facility] . He may require another level of car e given the number of ED visits at enrollment (22 in the last year)-please contact his [facility] C ase Instrumentation Designer (Fermin Preston) to discuss. Norah is developmentally delayed- Patient may benefit from having someone with him at his d octor's appointments. He has applied for Dial-A-Ride services (April,) Applied for a Health Home for this client through [facility]- please review Provider One to determ ine if one has been assigned. Additional Information: This patient is case managed by the [facility] Care Program. Please contact the E D Wash Box Operator at your hospital for any immediate or post ED discharge needs this patient ma y have. Please contact Tari at [facility] at when patient p resents to ED. [...] Service: Hospitalist Author Type: Physician Filed: 05/06/14 1201 Date of Service: 05/06/14904 Status: Signed Assembler Handbags: Agustín Box MD (Physician) [facility] Service: Hospitalist Admission History & Physical Pt: [...] CHOLECYSTECTOMY; Surgeon: Jevon Vargas DO; Location: [facility] MA[facility] OR; Service: General; 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; Abdominal surgery Cholecystectomy Skin cancer excision 10/10/2012 Procedure: EXCISION - SKIN CANCER; Surgeon: Sy Fierro MD; Location: [facility] ; Service: Plastics; Laterality: Left; upper arm and upper back w/frozen section Esophagogastroduodenoscopy 03/03/2013 Procedure: ESOPHAGOGASTRODUODENOSCOPY; Surgeon: Howie Gibson MD; Location: [facility] END[facility]; S ervice: Gastroenterology; 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; Colonoscopy 03/04/2013 Procedure: COLONOSCOPY; Surgeon: Howie Gibson MD; Location: [facility] END[facility]COPY; Service: Gastroe nterology; 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; [...] lungs as needed. 108 mcg/act Historical Provider Sxewf-E-Orxcyqebxhuei (BEANO) TABS Take 150 Units by mouth [...] daily. 180 mg at hs 11/30/13 11/30/14 [facility] carlyn Mae MD diltiazem (DILACOR XR) 240 [...] 100 mg by mouth nightly. Historical Provider mwbbffvhr-ftksrrdp-nppnaekih hydroxide-simethicone Take 40 mLs by mouth daily [...] Lives in long term, IADL, full code Review of Symptoms: Only [...] 61.41 MONOPCT 10.35 Recent Labs Lab 05/06/14 0527 NA 142 K 3.8 CL 108 CO2 28 BUN 19 CREATININE 1.15 PROT 7.1 BILITOT 0.2 ALT 18 AST 17 Phosphorus: Lab Results Component Value Date PHOS 3.2 12/03/2013 Recent Labs Lab 05/06/14 05 APTT 27 INR 1.0 Recent Labs Lab 05/06/14 05 CKTOTAL 110 CKMBINDEX 1.8 Problem List: Principal [...] MD, FACP 05/06/2014 9:05 AM Dictation software, [employer], used which may contain error for similar [...] Date of Service: 05/07/14 1022 Status: Signed Assembler Handbags: Evette Walters RN (Registered Nurse) Consult Orders: 1. Wound Care Evaluation and Treat [[id number]] ordered by Alisha Bernstein MD at 05/06/14 [...] 05/06/14747 Date of Service: 05/06/14746 Status: Signed Assembler Handbags: Omaira Leslie RN (Registered Nurse) Patient placed call light on and asked for food. Diabetic food tray ordered on his behalf p er his request. Omaira Leslie RN 05/06/14747 orah Lawton MD - 05/06/2014 7:18 AM PDTFormatting of this note might be different from the or iginal. ED Provider Notes by Norah Barker MD at 05/06/14717 Author: Norah Barker MD Service: Emergency Department Author Type: Physician Filed: 05/06/14810 Date of Service: 05/06/14717 Status: Signed Assembler Handbags: Norah Barker MD (Physician) [facility] Department of Emergency Medicine No flowsheet data found. History of Present Illness Patient Identification Norah Gr is a 58 y.o. male. Patient information was obtained from patient. History/Exam limitations: none. Patient presented to the Emergency Department [place] [address] Room:10/15 Chief Complaint Chief Complaint Patient presents [...] CHOLECYSTECTOMY; Surgeon: Jevon Vargas DO; Location: [facility]; Service: General; 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; Abdominal surgery Cholecystectomy Skin cancer excision 10/10/2012 Procedure: EXCISION - SKIN CANCER; Surgeon: Sy Fierro MD; Location: [facility] ; Service: Plastics; Laterality: Left; upper arm and upper back w/frozen section Esophagogastroduodenoscopy 03/03/2013 Procedure: ESOPHAGOGASTRODUODENOSCOPY; Surgeon: Howie Gibson MD; Location: [facility]; S ervice: Gastroenterology; 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; Colonoscopy 03/04/2013 Procedure: COLONOSCOPY; Surgeon: Howie Gibson MD; Location: [facility]; Service: Gastroe nterology; 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; [...] lungs as needed. 108 mcg/act Historical Provider Vcycz-O-Soixlrapowtzs (BEANO) TABS Take 150 Units by mouth [...] daily. 180 mg at hs 11/30/13 11/30/14 [facility] carlyn Mae MD diltiazem (DILACOR XR) 240 [...] 100 mg by mouth nightly. Historical Provider anszaziju-libvvtqa-zntcxumak hydroxide-simethicone Take 40 mLs by mouth daily [...] C) TempSrc: Oral Oral Oral Resp: 16 Weight: 109.2 kg (240 lb 11.9 [...] extrem ity relative to the right. Decreased automatic wheel line operator strength of the left relative to the [...] We are currently [facility] CT [facility] been quite unremarkable. 7:39 [...] Component Value Ref Range Date/Time Cardiac Panel [[id number]] (Abnormal) Collected: 05/06/14526 Order Status: Completed Updated: [...] ng/mL CK-MB Index 1.8 POC clinitek 10 [[id number]] Collected: 05/06/14442 Order Status: Completed Updated: 05/06/14444 [...] NEGATIVE WBC, UA NEGATIVE NEGATIVE POCT glucose [[id number]] Order Status: Sent Lab Interpretation I have [...] from 05: Sinus rhythm at 69 bpm. KS, QRS, QT, and axis are normal. No [...] days [address] [facility] [address] [facility] Emergency Department If symptoms worsen, As needed [address] [facility] [address] Discharge Medications: New Prescriptions No new medications This document has been prepared with a voice recognition system. The possibility of "sound alike" physician assistant primary care errors, addition and/or deletions may occur. If there is any question p lease contact the author of the document. Procedures Additional Documentation Procedures Norah Barker MD 05/06/14 08 onversion Transactio n, Provider Unknown - 05/06/2014 6:52 AM PDT ED Notes by Kenny Holliday RN at 05/06/14 0652 Author: Kenny Holliday RN Service: (none) Author Type: Registered Nurse Filed: 05/06/14 0654 Date of Service: 05/06/1452 Status: Signed Assembler Handbags: Kenny Holliday RN (Registered Nurse) Pt returned [...] Date of Service: 05/06/14 0543 Status: Signed Assembler Handbags: Xander Ramírez MD (Physician) [facility] Department of Emergency Medicine 5:43 AM History of Present Illness Patient Identification Norah Gr is a 58 y.o. male. Patient information was obtained from patient. History/Exam limitations: none. Patient presented to the Emergency Department by: [facility] 1723 Chief Complaint Chief Complaint Patient presents [...] CHOLECYSTECTOMY; Surgeon: Jevon Vargas DO; Location: [facility]; Service: General; 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; Abdominal surgery Cholecystectomy Skin cancer excision 10/10/2012 Procedure: EXCISION - SKIN CANCER; Surgeon: Sy Fierro MD; Location: [facility] ; Service: Plastics; Laterality: Left; upper arm and upper back w/frozen section Esophagogastroduodenoscopy 03/03/2013 Procedure: ESOPHAGOGASTRODUODENOSCOPY; Surgeon: Howie Gibson MD; Location: [facility]; S ervice: Gastroenterology; 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; Colonoscopy 03/04/2013 Procedure: COLONOSCOPY; Surgeon: Howie Gibson MD; Location: [facility]; Service: Gastroe nterology; 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; [...] lungs as needed. 108 mcg/act Historical Provider Hnrsd-T-Cqdkvnqcxlsaz (BEANO) TABS Take 150 Units by mouth [...] daily. 180 mg at hs 11/30/13 11/30/14 [facility] carlyn Mae MD diltiazem (DILACOR XR) 240 [...] 100 mg by mouth nightly. Historical Provider izxmswkxh-xswygqzh-keefvswqa hydroxide-simethicone Take 40 mLs by mouth daily [...] bilaterally of upper and lower extremities Good automatic wheel line operator strength Subjective change in sensation of L [...] Dr Barker, who can admit for MR I if CT negative. Records Reviewed Old medical records. Nursing notes. Prior ED visits for similar and unrelated complaints Laboratory Evaluation Results Procedure Component Value Ref Range Date/Time Cardiac Panel [[id number]] (Abnormal) Collected: 05/06/14526 Order Status: Completed Updated: [...] ng/mL CK-MB Index 1.8 POC clinitek 10 [[id number]] Collected: 05/06/14442 Order Status: Completed Updated: 05/06/14444 [...] MRI system. Multiplanar sequences according to a [facility] protocol were acquired without contrast. Noncontrast gzay-dp-omwgzm MRA was acquired. Multiplanar MIP reconstructions were [...] days [address] [facility] [address] [facility] Emergency Department If symptoms worsen, As needed [address] [facility] [address] Aakash Rhodes MD Schedule an appointment as soon as possible for a visit in 1 week [address] [facility] [address] Michael Sims MD Schedule an appointment as soon as possible for a visit in 1 week [address] [facility] [address] Discharge Medications: Discharge Medication List as of [...] 05/06/14441 Date of Service: 05/06/14441 Status: Signed Assembler Handbags: Mayra Xie RN (Registered Nurse) Pt reports [...] 05/06/14409 Date of Service: 05/06/14409 Status: Signed Assembler Handbags: Mayra Xie RN (Registered Nurse) Pt complains of sudden onset "sharp pain" in L shoulder. Mayra Xie RN 05/06/14409 onver ivana Transaction, Provider Unknown - 05/06/2014 3:52 AM PDT ED Notes by Hortensia Cardoso RN at 05/06/14351 Author: Hortensia Cardoso RN Service: (none) Author Type: Registered Nurse Filed: 05/06/14351 Date of Service: 05/06/14351 Status: Signed Assembler Handbags: Hortensia Cardoso RN (Registered Nurse) Bed: 09 Expected date: Expected time: Means of arrival: Comments: Ems 1723 docume nted in this encounter Plan of Treatment +--------+---------+ + + + | Date | Type | Specialty | Care Team | Description | +--------+---------+ + + + | 09/10/ | Office | Geriatric Medicine | Mireya Pack, | | | 2019 | Visit | | STRUCTURAL IRON ERECTOR [address] | | | | | | [address] [place], | | | | | | [place] [address] | | | | | | [phone] | | | | | | | | +--------+---------+ + + + | 09/29/ | Office | Urology | Mireya Pack, | | | 2019 | Visit | | STRUCTURAL IRON ERECTOR [address] | | | | | | [address] [place], | | | | | | [place] [address] | | | | | | [phone] | | | | | | | | | | | | Toy Wild, DO | | | | | | [address] | | | | | | [place] [address] | | | | | | [phone] | | | | | | | [...] | | | Fingerstick | performed at [facility];[address] | | LAB | | | | [address] [facility];[place] | | | | | | [address] | | | | + + + [...] | | | Fingerstick | performed at [facility] [facility];[address] | | LAB | | | | [address];[place], [place] | | | | | | [address] | | | | + + + [...] | | | Fingerstick | performed at [facility] | | LAB | | | | [address];[place], [place] | | | | | | [address] | | | | + + + [...] | | | | | [place] [address] | | | | + + + + + + | Non- | 5.01Comment: Testing | 4.20 - 5.70 | EXTERNAL | | | Red Blood | performed at [facility], [address] | M/uL | LAB | | | Cells | [address], | | | | | Counted | [place] [address] | | | | + + + + + + | Hemoglobin | 12.8 (L)Comment: Testing | 13.2 - 17.0 | EXTERNAL | | | | performed at [facility], [address] | g/dL | LAB | | | | [address], | | | | | | [place] [address] | | | | + + + + + + | Hematocrit, | 39.2Comment: Testing | 39.0 - 50.0 % | EXTERNAL | | | POC | performed at [facility], [address] | | LAB | | | | [address], | | | | | | [place] [address] | | | | + + + + + + | MCV | 78.3 (L)Comment: Testing | 80.0 - 100.0 fl | EXTERNAL | | | | performed at [facility], [address] | | LAB | | | | [address], | | | | | | [place] [address] | | | | + + + + + + | MCH | 25.5 (L)Comment: Testing | 27.0 - 34.0 pg | EXTERNAL | | | | performed at [facility], [address] | | LAB | | | | [address], | | | | | | [place] [address] | | | | + + + + + + | MCHC | 32.6Comment: Testing | 32.0 - 35.5 | EXTERNAL | | | | performed at [facility], [address] | g/dL | LAB | | | | [address], | | | | | | [place] [address] | | | | + + + + + + | RDW-CV | 41.6Comment: Testing | 37 - 53 fl | EXTERNAL | | | | performed at [facility], [address] | | LAB | | | | [address], | | | | | | [place] [address] | | | | + + + + + + | Platelet | 251Comment: Testing | 150 - 400 K/uL | EXTERNAL | | | Count | performed at [facility], [address] | | LAB | | | Plasma | [address], | | | | | | [place] [address] | | | | + + + + + + | MPV | 7.8Comment: Testing | fl | EXTERNAL | | | | performed at [facility], [address] | | LAB | | | | [address], | | | | | | [place] [address] | | | | + + + + + + | Differentia | AUTOMATEDComment: | | EXTERNAL | | | l Type | Testing performed at | | LAB | | | | [facility], [address] | | | | | | [place] | | | | | | [address] | | | | + + + + + + | % Segmented | 59.65Comment: Testing | % | EXTERNAL | | | | performed at [facility], [address] | | LAB | | | Neutrophils | [address], | | | | | | [place], [place] [address] | | | | + + + + + + | % | 25.65Comment: Testing | % | EXTERNAL | | | Lymphocytes | performed at [facility], [address] | | LAB | | | | [address], | | | | | | [place] [address] | | | | + + + + + + | % Monocytes | 9.90Comment: Testing | % | EXTERNAL | | | | performed at [facility], [address] | | LAB | | | | [address], | | | | | | [place] [address] | | | | + + + + + + | % | 4.25Comment: Testing | % | EXTERNAL | | | Eosinophils | performed at [facility], [address] | | LAB | | | | [address], | | | | | | [place] [address] | | | | + + + + + + | % Basophils | 0.55Comment: Testing | % | EXTERNAL | | | | performed at [facility], [address] | | LAB | | | | [address], | | | | | | [place] [address] | | | | + + + + + + | Absolute | 5.76Comment: Testing | 1.90 - 7.40 | EXTERNAL | | | Segmented | performed at [facility], [address] | K/uL | LAB | | | Neutrophils | [address], | | | | | | [place] [address] | | | | + + + + + + | Absolute | 2.48Comment: Testing | 1.00 - 3.90 | EXTERNAL | | | Lymphocytes | performed at [facility], [address] | K/uL | LAB | | | | [address], | | | | | | [place] [address] | | | | + + + + + + | Absolute | 0.96 (H)Comment: Testing | 0.00 - 0.80 | EXTERNAL | | | Monocytes | performed at [facility], [address] | K/uL | LAB | | | | [address], | | | | | | [place] [address] | | | | + + + + + + | Absolute | 0.41Comment: Testing | 0.00 - 0.50 | EXTERNAL | | | Eosinophils | performed at [facility], [address] | K/uL | LAB | | | | [address], | | | | | | [place] [address] | | | | + + + + + + | Absolute | 0.05Comment: Testing | 0.00 - 0.10 | EXTERNAL | | | Basophils | performed at [facility], [address] | K/uL | LAB | | | | [address], | | | | | | [place] [address] | | | | + + + [...] EXTERNAL | | | | performed at [facility], [address] | | LAB | | | | [address], | | | | | | [place] [address] | | | | + + + [...] EXTERNAL | | | | performed at [facility], [address] | | LAB | | | | [address], | | | | | | [place] [address] | | | | + + + [...] | EXTERNAL | | | A1c | [place] Diabetes | | LAB | | | [...] | | | | | performed at [facility], [address] | | | | | | [address] [facility], | | | | | | [place] [address] | | | | + + + [...] | | | | | performed at [facility], [address] | | | | | | [facility], | | | | | | [place] [address] | | | | + + + [...] EXTERNAL | | | | performed at [facility], [address] | | LAB | | | | [address], | | | | | | [place] [address] | | | | + + + + + + | Triglycerid | 156 (H)Comment: Testing | mg/dL | EXTERNAL | | | es | performed at [facility], [address] | | LAB | | | | [address], | | | | | | [place] [address] | | | | + + + + + + | HDL | 31 (L)Comment: Testing | mg/dL | EXTERNAL | | | | performed at [facility], [address] | | LAB | | | | [address], | | | | | | [place] [address] | | | | + + + + + + | LDL, | 69Comment: Testing | mg/dL | EXTERNAL | | | Calculated | performed at [facility], [address] | | LAB | | | | [address], | | | | | | [place] [address] | | | | + + + [...] | | | | | [place] [address] | | | | + + + + + + | K | 3.9Comment: Testing | 3.5 - 4.9 | EXTERNAL | | | | performed at [facility], [address] | mmol/L | LAB | | | | [address], | | | | | | [place] [address] | | | | + + + + + + | Cl | 106Comment: Testing | 99 - 109 mmol/L | EXTERNAL | | | | performed at [facility], [address] | | LAB | | | | [address], | | | | | | [place] [address] | | | | + + + + + + | CO2 | 30Comment: Testing | 23 - 32 mmol/L | EXTERNAL | | | | performed at [facility], [address] | | LAB | | | | [address], | | | | | | [place] [address] | | | | + + + + + + | Anion Gap | 8Comment: Testing | 5 - 20 mmol/L | EXTERNAL | | | | performed at [facility], [address] | | LAB | | | | [address], | | | | | | [place] [address] | | | | + + + + + + | Glucose, | 139 (H)Comment: Testing | 65 - 99 mg/dL | EXTERNAL | | | Fasting | performed at [facility], [address] | | LAB | | | | [address], | | | | | | [place] [address] | | | | + + + + + + | BUN | 19Comment: Testing | 8 - 25 mg/dL | EXTERNAL | | | | performed at [facility], [address] | | LAB | | | | [address], | | | | | | [place] [address] | | | | + + + + + + | Creatinine | 1.20Comment: Testing | 0.70 - 1.30 | EXTERNAL | | | | performed at [facility], [address] | mg/dL | LAB | | | | [address], | | | | | | [place] [address] | | | | + + + + + + | BUN/Creatin | 16Comment: Testing | | EXTERNAL | | | ine Ratio | performed at [facility], [address] | | LAB | | | | [address], | | | | | | [place] [address] | | | | + + + + + + | Calcium | 9.2Comment: Testing | 8.5 - 10.5 | EXTERNAL | | | | performed at [facility], [address] | mg/dL | LAB | | | | [address], | | | | | | [place] [address] | | | | + + + + + + | Protein, | 6.7Comment: Testing | 6.3 - 8.2 g/dL | EXTERNAL | | | Total | performed at [facility], [address] | | LAB | | | | [address], | | | | | | [place] [address] | | | | + + + + + + | Albumin | 3.6Comment: Testing | 3.6 - 5.0 g/dL | EXTERNAL | | | | performed at [facility], [address] | | LAB | | | | [address], | | | | | | [place] [address] | | | | + + + + + + | Globulin | 3.1Comment: Testing | 1.3 - 4.9 g/dL | EXTERNAL | | | | performed at [facility], [address] | | LAB | | | | [address], | | | | | | [place] [address] | | | | + + + + + + | A/G Ratio | 1.2Comment: Testing | 1.0 - 2.4 | EXTERNAL | | | | performed at [facility], [address] | | LAB | | | | [address], | | | | | | [place] [address] | | | | + + + + + + | Bilirubin | 0.3Comment: Testing | 0.1 - 1.5 mg/dL | EXTERNAL | | | Total | performed at [facility], [address] | | LAB | | | | [address], | | | | | | [place] [address] | | | | + + + + + + | ALP, | 69Comment: Testing | 35 - 115 U/L | EXTERNAL | | | External | performed at [facility], [address] | | LAB | | | | [address], | | | | | | [place] [address] | | | | + + + + + + | AST | 12Comment: Testing | 10 - 45 U/L | EXTERNAL | | | | performed at [facility], [address] | | LAB | | | | [address], | | | | | | [place] [address] | | | | + + + + + + | ALT | 11Comment: Testing | 10 - 65 U/L | EXTERNAL | | | | performed at [facility], [address] | | LAB | | | | [address], | | | | | | [place] [address] | | | | + + + [...] | | | | | | [address] [facility], | | | | | | [place] [address] | | | | + + + [...] | | | Fingerstick | performed at [facility];[address] | | LAB | | | | [address];[place] | | | | | | [address] | | | | + + + [...] | | | Fingerstick | performed at [facility];[address] | | LAB | | | | [address];[place], [place] | | | | | | [address] | | | | + + + [...] acquired | | | without contrast. Noncontrast ocas-lz-pbwwbo MRA was acquired. | | | Multiplanar [...] Conversion - 09/20/2018 10:29 PM PDT [facility] | | HEAD05/06/2014 1:57 PM HISTORY:58 years. Male. Left-sided weakness. TECHNIQUE:Imaging | | was performed on a 1.5 Eden MRI system. Multiplanar sequences according to a standard | | department protocol were acquired without contrast. Noncontrast qnat-mk-jpfqry MRA was | | acquired. Multiplanar MIP [...] TV A [place]: 0.55 m/s TV Dec [place]: 3.25 | | | m/s2 TV Dec Time: 242.45 ms TV E [place]: 0.78 m/s TV E/A Ratio: | | | 1.42 Pct: KARIE Authenticated by: Marcelino Edgar MD | | | Report Date/Time: 05-06-2014 13:25:14 | | + + + + + | Procedure Note | + + | Joaquin Ramos Conversion - 09/20/2018 10:29 PM PDT Patient Name: Sim GR of | | : 1955 Performing Physician: Marcelino Edgar | | MD INDICATIONS S | | TROKE/TIA, no IV [...] | Index (A-L): 23.68 ml/m2LAAs A2C: 18.59 [id number] A-L A2C: 51.50 mlLAESV MOD A2C: | | 47.76 mlLALs A2C: 5.69 cmLAAs A4C: 18.00 [id number] A-L A4C: 52.30 mlLAESV MOD A4C: | [...] Vmax: 2.96 cm2AVA (VTI): | | 3.11 [id number] Dopp: 3.16 l/vdin6PYTT Dopp: 7.21 l/minHR: 68.97 BPMLVOT maxPG: | [...] 1.97 m/sTV A [place]: 0.55 m/sTV Dec [place]: | | 3.25 m/s2TV Dec Time: 242.45 msTV E [place]: 0.78 m/sTV E/A Ratio: 1.42 Pct: | | KVWAuthenticated by: Marcelino Parksqaiduane MDReport Date/Time: 05-06-2014 13:25:14 IMPRESSION: | | [...] A [place]: 0.55 m/s | |TV Dec [place]: 3.25 m/s2 | |TV Dec Time: 242.45 ms | |TV E [place]: 0.78 m/s | |TV E/A Ratio: 1.42 | | | |Pct: ANGELICAW | |Authenticated by: Marcelino Edgar MD | [...] | | | Fingerstick | performed at [facility];[address] | | LAB | | | | [facility];[place] | | | | | | [address] | | | | + + + [...] Ramos Conversion - 09/20/2018 10:29 PM PDT HISTORY:Left-sided [...] EXTERNAL | | | | performed at [facility];[address] | K/u[address] | LAB | | | | [address];[place] | | | | | | [address] | | | | + + + + + -+ | Non- | 4.97Comment: Testing | 4.20 - 5.70 | EXTERNAL | | | Red Blood | performed at [facility];[address] | M/uL | LAB | | | Cells | [address];[place] | | | | | Counted | [address] | | | | + + + + + -+ | Hemoglobin | 12.2 (L)Comment: Testing | 13.2 - 17.0 | EXTERNAL | | | | performed at [facility];[address] | g/dL | LAB | | | | [address];[place] | | | | | | [address] | | | | + + + + + -+ | Hematocrit, | 38.1 (L)Comment: Testing | 39.0 - 50.0 % | EXTERNAL | | | POC | performed at [facility];[address] | | LAB | | | | [address];[place] | | | | | | [address] | | | | + + + + + -+ | MCV | 76.7 (L)Comment: Testing | 80.0 - 100.0 fl | EXTERNAL | | | | performed at [facility];[address] | | LAB | | | | [address];[place] | | | | | | [address] | | | | + + + + + -+ | MCH | 24.5 (L)Comment: Testing | 27.0 - 34.0 pg | EXTERNAL | | | | performed at [facility];[address] | | LAB | | | | [address];[place] | | | | | | [address] | | | | + + + + + -+ | MCHC | 32.0Comment: Testing | 32.0 - 35.5 | EXTERNAL | | | | performed at [facility];[address] | g/dL | LAB | | | | [address];[place] | | | | | | [address] | | | | + + + + + -+ | RDW-CV | 41.6Comment: Testing | 37 - 53 fl | EXTERNAL | | | | performed at [facility];[address] | | LAB | | | | [address];[place] | | | | | | [address] | | | | + + + + + -+ | Platelet | 264Comment: Testing | 150 - 400 K/uL | EXTERNAL | | | Count | performed at [facility];[address] | | LAB | | | Plasma | [address];[place] | | | | | | [address] | | | | + + + + + -+ | MPV | 7.4Comment: Testing | fl | EXTERNAL | | | | performed at [facility];[address] | | LAB | | | | [address];[place] | | | | | | [address] | | | | + + + + + -+ | Differentia | AUTOMATEDComment: | | EXTERNAL | | | l Type | Testing performed at | | LAB | | | | [facility];[address];[place] [address] | | | | + + + + + -+ | % Segmented | 61.41Comment: Testing | % | EXTERNAL | | | | performed at [facility];[address] | | LAB | | | Neutrophils | [address];[place] | | | | | | [address] | | | | + + + + + -+ | % | 24.07Comment: Testing | % | EXTERNAL | | | Lymphocytes | performed at [facility];[address] | | LAB | | | | [address];[place] | | | | | | [address] | | | | + + + + + -+ | % Monocytes | 10.35Comment: Testing | % | EXTERNAL | | | | performed at [facility];[address] | | LAB | | | | [address];[place] | | | | | | [address] | | | | + + + + + -+ | % | 3.37Comment: Testing | % | EXTERNAL | | | Eosinophils | performed at [facility];[address] | | LAB | | | | [address];[place] | | | | | | [address] | | | | + + + + + -+ | % Basophils | 0.80Comment: Testing | % | EXTERNAL | | | | performed at [facility];[address] | | LAB | | | | [address];[place] | | | | | | [address] | | | | + + + + + -+ | Absolute | 5.18Comment: Testing | 1.90 - 7.40 | EXTERNAL | | | Segmented | performed at [facility];[address] | K/uL | LAB | | | Neutrophils | [address];[place] | | | | | | [address] | | | | + + + + + -+ | Absolute | 2.03Comment: Testing | 1.00 - 3.90 | EXTERNAL | | | Lymphocytes | performed at [facility];[address] | K/uL | LAB | | | | [address];[place] | | | | | | [address] | | | | + + + + + -+ | Absolute | 0.87 (H)Comment: Testing | 0.00 - 0.80 | EXTERNAL | | | Monocytes | performed at [facility];[address] | K/uL | LAB | | | | [address];[place] | | | | | | [address] | | | | + + + + + -+ | Absolute | 0.28Comment: Testing | 0.00 - 0.50 | EXTERNAL | | | Eosinophils | performed at [facility];[address] | K/uL | LAB | | | | [address];[place] | | | | | | [address] | | | | + + + + + -+ | Absolute | 0.07Comment: Testing | 0.00 - 0.10 | EXTERNAL | | | Basophils | performed at [facility];[address] | K/uL | LAB | | | | [address];[place] | | | | | | [address] | | | | + + + + + -+ | RBC | 1+Comment: HYPONORMAL | | EXTERNAL | | | Morphology | PLT MORPHTesting | | LAB | | | | performed at [facility];[address] | | | | | | [address];[place] | | | | | | [address] | | | | | | | | | | + + + + + -+ | Platelet | ADEQUATEComment: Testing | | EXTERNAL | | | Estimate | performed at [facility];[address] | | LAB | | | | [address];[place] | | | | | | [address] | | | | + + + + + -+ | Na | 142Comment: Testing | 135 - 143 | EXTERNAL | | | | performed at [facility];[address] | mmol/L | LAB | | | | [address];[place] | | | | | | [address] | | | | + + + + + -+ | K | 3.8Comment: Testing | 3.5 - 4.9 | EXTERNAL | | | | performed at [facility];[address] | mmol/L | LAB | | | | [address];[place] | | | | | | [address] | | | | + + + + + -+ | Cl | 108Comment: Testing | 99 - 109 mmol/L | EXTERNAL | | | | performed at [facility];[address] | | LAB | | | | [address];[place] | | | | | | [address] | | | | + + + + + -+ | CO2 | 28Comment: Testing | 23 - 32 mmol/L | EXTERNAL | | | | performed at [facility];[address] | | LAB | | | | [address];[place] | | | | | | [address] | | | | + + + + + -+ | Anion Gap | 10Comment: Testing | 5 - 20 mmol/L | EXTERNAL | | | | performed at [facility];[address] | | LAB | | | | [address];[place] | | | | | | [address] | | | | + + + + + -+ | Glucose, | 171 (H)Comment: Testing | 65 - 99 mg/dL | EXTERNAL | | | Fasting | performed at [facility];[address] | | LAB | | | | [address];[place] | | | | | | [address] | | | | + + + + + -+ | BUN | 19Comment: Testing | 8 - 25 mg/dL | EXTERNAL | | | | performed at [facility];[address] | | LAB | | | | [address];[place] | | | | | | [address] | | | | + + + + + -+ | Creatinine | 1.15Comment: Testing | 0.70 - 1.30 | EXTERNAL | | | | performed at [facility];[address] | mg/dL | LAB | | | | [address];[place] | | | | | | [address] | | | | + + + + + -+ | BUN/Creatin | 17Comment: Testing | | EXTERNAL | | | ine Ratio | performed at [facility];[address] | | LAB | | | | [address];[place] | | | | | | [address] | | | | + + + + + -+ | Calcium | 8.5Comment: Testing | 8.5 - 10.5 | EXTERNAL | | | | performed at [facility];[address] | mg/dL | LAB | | | | [address];[place] | | | | | | [address] | | | | + + + + + -+ | Protein, | 7.1Comment: Testing | 6.3 - 8.2 g/dL | EXTERNAL | | | Total | performed at [facility];[address] | | LAB | | | | [address];[place] | | | | | | [address] | | | | + + + + + -+ | Albumin | 3.2 (L)Comment: Testing | 3.6 - 5.0 g/dL | EXTERNAL | | | | performed at [facility];[address] | | LAB | | | | [address];[place] | | | | | | [address] | | | | + + + + + -+ | Globulin | 3.9Comment: Testing | 1.3 - 4.9 g/dL | EXTERNAL | | | | performed at [facility];[address] | | LAB | | | | [address];[place] | | | | | | [address] | | | | + + + + + -+ | A/G Ratio | 0.8 (L)Comment: Testing | 1.0 - 2.4 | EXTERNAL | | | | performed at [facility];[address] | | LAB | | | | [address];[place] | | | | | | [address] | | | | + + + + + -+ | Bilirubin | 0.2Comment: Testing | 0.1 - 1.5 mg/dL | EXTERNAL | | | Total | performed at [facility];[address] | | LAB | | | | [address];[place] | | | | | | [address] | | | | + + + + + -+ | ALP, | 78Comment: Testing | 35 - 115 U/L | EXTERNAL | | | External | performed at [facility];[address] | | LAB | | | | [address];[place] | | | | | | [address] | | | | + + + + + -+ | AST | 17Comment: Testing | 10 - 45 U/L | EXTERNAL | | | | performed at [facility];[address] | | LAB | | | | [address];[place] | | | | | | [address] | | | | + + + + + -+ | ALT | 18Comment: Testing | 10 - 65 U/L | EXTERNAL | | | | performed at [facility];[address] | | LAB | | | | [address];[place] | | | | | | [address] | | | | + + + [...] | | | | | | at [facility];[address] | | | | | | [address];[place] [address] | | | | + + + + + -+ | CK, Total | 110Comment: Testing | 55 - 400 U/L | EXTERNAL | | | | performed at [facility];[address] | | LAB | | | | [address];[place] | | | | | | [address] | | | | + + + [...] | | | | | performed at [facility];[address] | | | | | | [address];[place] | | | | | | [address] | | | | + + + + + -+ | aPTT, | 27Comment: Testing | 23 - 32 seconds | EXTERNAL | | | Patient | performed at [facility];[address] | | LAB | | | | [address];[place] | | | | | | [address] | | | | + + + + + -+ | CK-MB | 2.0Comment: Testing | 0.5 - 3.6 ng/mL | EXTERNAL | | | | performed at [facility];[address] | | LAB | | | | [address];[place] | | | | | | [address] | | | | + + + [...] (500), | | | | | | avid editor Becky Corley | | | | | | (104) on 05/06/2014 | | | | | | 6:46:42 AM | | | | + + + + + + + + | Specimen | + + | | + + + + + | Narrative | Performed At | + + + | Historically converted procedure from [facility] environment | EXTERNAL LAB | + [...] | | | Fingerstick | performed at [facility];[address] | | LAB | | | | [address];[place] | | | | | | [address] | | | | + + + [...]
--- OUTSIDE RECORDS SUMMARY | ~2019-09-09 | XMS | Encounter Summary ---
Demographics + + + | Address | [address] | | | [place] [address] | + + + | Home Phone [...] + | Sammi Kohler | ECON | [place] [address] | | + + + + + Care Team Providers + +------+ + | Care Armature Inspector Name | Role | Phone | + +------+ + | Mireya Pack NP | PCP | | + +------+ + Reason for Referral Evaluate & Treat (Urgent) + + + + + + + | Status | Reason | Specialty | Diagnoses / | Referred By | Referred To | | | | | Procedures | Contact | Contact | + + + + + + + | Authorized | Specialty | Anticoagulati | Diagnoses | [facility], | [facility] | | | Services | on | Chronic | Miryea Calixto [employer] SUPERINTENDENT | Anticoagulati | | | Required | | a-fib (HCC) | [address] | on Clinic | | | | | | [address] | [place] | | | | | [address] | [address] | | | | | | [place], [place] | [place], | | | | | | [address] | [place] [address] | | | | | | Phone: | Phone: | | | | | | [phone] | [phone] | | | | | | Fax: | Fax: | | | | | | [phone] | [phone] | + + + + + + + Reason for Visit +--------+ + | Reason | Comments | +--------+ + | Other | ED follow up | +--------+ + Encounter Details +--------+---------+ + + + | Date | Type | Department | Care Team | Description | +--------+---------+ + + + | 07/30/ | Office | [facility] | Mireya Pack, | COPD with lower | | 2020 | Visit | [facility] [address] | [employer] SUPERINTENDENT [address] | respiratory | | | | [address] | [address] [place], | infection (HCC) | | | | [place], [place] | [place] [address] | (Primary Dx); Type 2 | | | | [address] | [phone] | diabetes mellitus | | | | [phone] | | with hyperglycemia, | | | | | | with long-term | | | | | | current use of | | | | | | insulin ([facility]); BPH | | | | | | with | | | | | | obstruction/lower | | | | | | urinary tract | | | | | | symptoms; Chronic | | | | | | a-fib (HCC); | | | | | | Impacted cerumen, | | | | | | bilateral | +--------+---------+ + + + Social History [...] + + + | Blood Pressure | 118/50 | 07/31/2019 11:24 AM | | | | | PDT | | + + + + + | Pulse | 73 | 07/31/2019 11:24 AM | | | | | PDT | | + + + + + | Temperature | 36.9 C (98.4 F) | 07/31/2019 11:24 AM | | | | | PDT | | + + + + + | Respiratory Rate | - | - | | + + + + + | Oxygen Saturation | 95% | 07/31/2019 11:24 AM | | | | | PDT | | + + + + + | Inhaled Oxygen | - | - | | | Concentration | | | | + + + + + | Weight | 100.8 kg (222 lb 3.2 | 07/31/2019 11:24 AM | | | | oz) | [...] Instructions Patient Instructions Mireya Pack NP - 07/31/2019 11:30 AM PDTWe are starting Coumadin (generic name is warfarin) for blood thinner Need appointment with coumadin clinic within 4-5 days to get level checked. Call [phone] t o make appointment Continue your other medications For energy continue to walk, drink lots of fluids and eat heathy. Check BP and HR daily, goal for BP < 160/90. Call if < 100/50. Goal for HR < 100. Call if < 55 documented in this encounter Progress Notes Mireya Pack NP - 07/31/2019 11:30 AM PDTFormatting of this note might be different fr om the original. impSubjective: Patient ID: Kevyn Guzman is a 63 y.o. male Patient presents for hospital follow up Significant history of: Past Medical History: Diagnosis [...] - CHOLECYSTECTOMY; Surgeon: Jevon Vargas DO; Location: [facility] MAIN OR; Service: General; 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; COLONOSCOPY COLONOSCOPY 03/04/2013 Procedure: COLONOSCOPY; Surgeon: Howie Gibson MD; Location: [facility] ENDOSCOPY; Service: Gastroen terology; 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; HERNIA REPAIR 07/03/2013 Procedure: LAPAROSCOPIC - HERNIA - INCISIONAL; Surgeon: Jevon Vargas DO; Location: [facility] MAIN OR; Service: General; 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; KNEE SURGERY rt knee, patella LEG SURGERY LLE OTHER SURGICAL HISTORY UNLISTED PROCEDURE ARTHROSCOPY OTHER SURGICAL HISTORY Left 05/05/2014 SKIN LESION EXCISION - Procedure: EXCISION - LESION - FROZEN SECTION; Surgeon: Sy murcia MD; Location: [facility] MAIN OR; Service: Plastics; Laterality: Left; forearm SKIN BIOPSY SKIN CANCER EXCISION Left 10/10/2012 Procedure: EXCISION - SKIN CANCER; Surgeon: Sy Fierro MD; Location: [facility] MAIN OR; Service: Plastics; Laterality: Left; upper arm and upper back w/frozen section UPPER GASTROINTESTINAL ENDOSCOPY UPPER GASTROINTESTINAL ENDOSCOPY 03/03/2013 Procedure: ESOPHAGOGASTRODUODENOSCOPY; Surgeon: Howie Gibson MD; Location: [facility] ENDOSCOPY; Se rvice: Gastroenterology; Laterality: [...] Current Outpatient Medications Medication Sig Dispense Refill amoxicillin-clavulanate (AUGMENTIN) 875-125 mg per tablet Take 1 tablet by mouth 2 time s daily for 5 days 10 tablet 0 apixaban (ELIQUIS) 5 mg tablet Take 1 [...] taking: Reported on 07/03/2019) 1 Inhaler 0 docusate-senna (SENOKOT-S) 50-8.6 mg per tablet Take 2 tablets by mouth 2 times daily 6 0 tablet 0 finasteride (PROSCAR) 5 mg tablet [...] for bp > 170/80). 60 tablet 11 insulin detemir (LEVEMIR FLEXTOUCH) 100 units/mL injection [...] Take 25 mg by mouth as needed. melatonin 3 mg TABS Take 1 tablet by mouth nightly as needed for Insomnia. (Patient not taking: Reported on 07/03/2019) 30 tablet 0 metoprolol succinate (TOPROL-XL) 50 mg 24 hr tablet Take 1 tablet (50 mg total) by mout h 2 times daily 60 tablet 0 NIFEdipine (ADALAT CC) 60 MG 24 hr tablet Take 1 tablet by mouth Daily. No current facility-administered medications for this visit. HPI Patient admitted [facility] inpatient 07/23/19-07/27/19 presented with palpations and vague abdomin al pain and constipation. Chest XR in ED possible right lobe pneumonia, CT abdomen confirmed right lobe pneumonia but no acute abdomen. suspcion of stroke per ataxia, CT head unremarka ble. For his pneumonia, based on location, aspiration was suspected. Speech therapy was con sulted however recommended regular texture with thin liquids. Patient reports that feeling weak and lightheaded. Energy unchanged from presentation to h ospital not worsening. Ambulating/exerting without SOB, intermittent wheezing. patient blood sugar was 238 this morning. Patient reports still having the same ongoing urinary symptoms, sees urology in September. Medications brought to appointment for reconciliation, not taking eliquis or finasteride re lated to cost. Not take symbicort as prescribed (< twice daily) per cost. Patient's medications, allergies, past medical, surgical, social and family histories were obtained and reviewed as appropriate. Review of Systems Constitutional: Negative. Negative for activity change, appetite change, chills, diaphores is, fever and unexpected weight change. Respiratory: Negative. Negative for cough and shortness of breath. Cardiovascular: Negative. Negative for chest pain and leg swelling. Gastrointestinal: Negative. Negative for abdominal pain and blood in stool. Genitourinary: Negative. Negative for dysuria. Neurological: Positive for light-headedness. Negative for syncope, speech difficulty, weakn ess, numbness and headaches. Objective: Physical Exam Constitutional: General: He is not in acute distress. Appearance: He is well-developed. He is not diaphoretic. Comments: Disheveled HENT: Head: Normocephalic and atraumatic. Right Ear: There is impacted cerumen. Left Ear: There is impacted cerumen. Mouth/Throat: Pharynx: No oropharyngeal exudate. Eyes: Conjunctiva/sclera: [...] is present. Musculoskeletal: Normal range of motion. Skin: General: Skin is warm and dry. Findings: No erythema or rash. Neurological: Mental Status: He is alert and oriented to person, place, and time. Psychiatric: Speech: Speech normal. Cognition and Memory: Memory is not impaired. BP 118/50 | Pulse 73 | Temp 36.9 C (98.4 F) (Oral) | Wt 100.8 kg (222 lb 3.2 oz) | SpO2 95% | BMI 30.99 kg/m Lab Results Component Value Date NA 141 07/26/2019 CL 109 07/26/2019 K 3.7 07/26/2019 CO2 26 07/26/2019 BUN 15 07/26/2019 EGFR >60 07/26/2019 GLUF 292 (H) 09/21/2018 GLOB 2.7 09/21/2018 BILITOT 0.5 09/21/2018 AST 23 07/23/2019 ALT 34 07/23/2019 Lab Results Component Value Date WBC 10.34 07/25/2019 HGB 12.4 (L) 07/25/2019 HCT 38.4 (L) 07/25/2019 MCV 83.1 07/25/2019 PLT 261 07/25/2019 Lab Results Component Value Date CHOL 182 [...] CHOLHDL Lab Results Component Value Date HBA1C 8.9 (H) 07/25/2019 No components found for: [id number], PTHINT No results found for: [id number] Lab Results Component Value Date TSH 2.780 03/27/2019 No results found for: IRON, TIBC, FERRITIN . No results found for: FERRITIN Assessment/Plan: Kevyn was seen today for other. Diagnoses and all orders for this visit: COPD with lower respiratory infection (HCC) Advise resume compliance with symbicort. Without acute respiratory findings today, recommend monitor for fever/worsening cough once completes abx rtc 2 weeks f/u Type 2 diabetes mellitus with hyperglycemia, with long-term current use of insulin (HCC) Continue current insulin instructions and discussed CCHO diet BPH with obstruction/lower urinary tract symptoms Establish urology, not able to afford finasteride currently but may change with transition to medicaid in future Chronic a-fib (HCC) Unable to afford eliquis, change to warfarin: - Ambulatory Referral to [facility] Anticoagulation Monitoring - warfarin (COUMADIN) 5 mg tablet; Take 1 tablet by mouth nightly Short term rx until e stablishes with coumadin clinic. Send refill requests to [facility] coumadin clinic. Impacted cerumen, bilateral Cerumen removal with instrumentation performed before and after lavage. Continues with hari cted cerumen right ear and instructed home drops and rtc 2 weeks for further instrumentation - Ear wax removal documented in this e ncounter Plan of Treatment +--------+---------+ + + + | Date | Type | Specialty | Care Team | Description | +--------+---------+ + + + | 09/10/ | Office | Geriatric Medicine | Mireya Pack, | | | 2019 | Visit | | [employer] SUPERINTENDENT [address] | | | | | | [address] [place], | | | | | | [place] [address] | | | | | | [phone] | | | | | | | | +--------+---------+ + + + | 09/29/ | Office | Urology | Mireya Pack, | | | 2019 | Visit | | [employer] SUPERINTENDENT [address] | | | | | | [address] [place], | | | | | | [place] [address] | | | | | | [phone] | | | | | | | | | | | | Toy Wild, DO | | | | | | [address] | | | | | | [place] [address] | | | | | | [phone] | | | | | | | | +--------+---------+ + + + + + +--------+ + + | Name | Type | Priori | Associated Diagnoses | Order Schedule | | | | ty | | | + + +--------+ + + | Ambulatory Referral | Outpatient | Routin | Chronic a-fib | Ordered: 07/31/2019 | | to Sara | Referral | e | ([facility]) | | | Anticoagulation | | | | | | Monitoring | | | | | + + +--------+ + + documented as of this encounter Visit Diagnoses + + | Diagnosis | + + | COPD with lower respiratory infection (HCC) - Primary | + + | Type 2 diabetes mellitus with hyperglycemia, with long-term current use of insulin | | (HCC) | + + | BPH with obstruction/lower urinary tract symptoms Hypertrophy of prostate with | | urinary obstruction and other lower urinary tract symptoms (LUTS) | + + | Chronic a-fib ([facility]) Atrial fibrillation | + + | Impacted cerumen, bilateral | + + documented in this encounter"
--- OUTSIDE RECORDS SUMMARY | ~2019-09-09 | XMS | Encounter Summary ---
Demographics + + + | Address | [address] | | | [place] [address] | + + + | Home Phone | | + + + | Preferred Language | Unknown | + + + | Marital Status | | + + + | Gnosticism Affiliation | [id number] | + + + [...] + | Sammi Kohler | ECON | [place] [address] | | + + + + + Care Team Providers + +------+ + | Care Limehouse Worker Name | Role | Phone | + +------+ + PCP | Unavailable | + +------+ + Encounter Details +--------+ + + + + | Date | Type | Department | Care Team | Description | +--------+ + + + + | 05/16/ | Emergency | [facility] | Pheysey, Norah, MD | terminal gauger (current) | | 2015 | | [facility] | [address] | use of | | | | EMERGENCY CENTER | [place] [address] | 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; | | | | [address] | [phone] | 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 Case Management by QUINN Richardson at 05/16/141222 Author: QUINN Richardson Service: (none) Author Type: Lab Analyst Filed: 05/16/14 4073 Date of Service: 05/16/141222 Status: Signed Operations Supervisor 2Nd Shift: Malia Ashford, TURNING SANDER OPERATOR (Lab Analyst) COLTON ALERT: ED VISIT COUNT (1 YR) IS 46 ED CARE GUIDELINES FROM CONSISTENT CARE: Care Recommendation: Norah has a printed Crisis Plan at the Assisted Living Facility that he is to follow before coming to the ED for non life-threatening issues. Please discuss with Norah when he present s to the ED The following guidelines were formulated by the ED Care Guidelines Committee of the [facility] Consistent Care Program on May 21, 2013. No controlled substances should be administered in the ED or prescribed from the ED for sub jective pain. Past Medical & Surgical History: Primary Care Provider (PCP) is CRUZITO GUTIÉRREZ DO at [phone] . Notify PCP if giving any additional narcotics for objective findings. PCP supports enrollment in the [facility] Care Program. Medical History: 1. Diabetes-He is on a sliding scale after meals, routine insulin before meals and takes La ntus at night. A1C April, = 7.9%. He was referred to an heddle machine operator in February, 4. 2. Chest Pain- Coronary [...] the GE junction (requiring managem ent in [place] at ), rectal ulcer and internal hemorrhoids. 10. Hernia- He has been referred to Dr. aVrgas. Problem List: He needs to make regular visits to see his PCP in light of his chronic conditions. This patient is developmentally delayed and has multiple chronic conditions and providers. He would benefit from having a Environmental Scientists assist him in coordinating his care. There is an alternate plan in place for Norah- He may take a taxi (paid for my ACCP) to the Urgent Care Clinic ([facility] on ) for evaluation instead of the ED. The have been provided his pertinent medical records. Norah and the ELGIN are aware of this plan. History of Behavioral Health Conditions: He has depression and anxiety- This is managed by his PCP. He takes Paxil and abilify. [facility]. According to [facility], he never establish ed care. Patient has now been scheduled twice and cancels at the last minute. Pain/Opioid Agreement: Norah has an order at the Assisted Living Facility for hydrocodone as needed. He does not h ave a diagnosis of chronic pain. Please see [facility] for prescribing history. Social History or Identified Risk: - Fall Risk - Non adherence - Transportation Issues Social History: Norah lives at [facility] . He may require another level of care given the number of ED visits at enrollment (22 in the last year)-please contact his [facility] Ca se Cuff Presser ([place]) to discuss. Norah is developmentally delayed- Patient may benefit from having someone with him at his d octor's appointments. He has applied for Dial-A-Ride services (April,) Applied for a Health Home for this client through [facility]- please review Provider One to determ ine if one has been assigned. Additional Information: This patient is case managed by the [place] Consistent Care Program. Please contact the safety sitter at your hospital for any immediate or post ED discharge needs this patient may have. Please contact Tari at [facility] at when patient pr esents to ED. You may also contact for additional information These are guidelines and the provider should exercise clinical judgment when providing care . Last Modified by Tari Don on Feb 20, 2014 Created by Ema Laura on May 24, 2013 docume nted in this encounter ED Notes Conversion Transaction, Provider Unknown - 05/16/2014 1:29 PM PDTFormatting of this note m ight be different from the original. ED Notes by Todd Duarte RN at 05/16/14 1292 Author: Todd Duarte RN Service: (none) Author Type: Registered Nurse Filed: 05/16/142 Date of Service: 05/16/141328 Status: Signed Operations Supervisor 2Nd Shift: Todd Duarte RN (Registered Nurse) Frequent PVC's noted on EKG Todd Duarte RN 05/16/14 1329 onver ivana Transaction, Provider Unknown - 05/16/2014 12:18 PM PDT ED Notes by Todd Duarte RN at 05/16/14 1218 Author: Todd Duarte RN Service: (none) Author Type: Registered Nurse Filed: 05/16/14 1219 Date of Service: 05/16/148 Status: Signed Operations Supervisor 2Nd Shift: Todd Duarte RN (Registered Nurse) Patient stated he is feeling palpitations. When asked what makes him feel better patient s tated taking his anxiety pill. Todd Duarte RN 05/16/14 1219 Norah Rivas MD - 05/16/2014 11:42 AM PDTFormatting of this note might be different from the or iginal. ED Provider Notes by Norah Barker MD at 05/16/14 1142 Author: Norah Barker MD Service: Emergency Department Author Type: Physician Filed: 05/16/14 1342 Date of Service: 05/16/14 1142 Status: Signed Operations Supervisor 2Nd Shift: Norah Barker MD (Physician) [facility] Department of Emergency Medicine No flowsheet data found. History of Present Illness Patient Identification Norah Gr is a 58 y.o. male. Patient information was obtained from patient. History/Exam limitations: none. Patient presented to the Emergency Department Car Room: Chief Complaint Chief Complaint Patient presents with Palpitations since 129 today 58 y.o. male with palpitations. Patient states that his atrial fibrillation is been botheri ng for the last day or so. He went to an urgent care and he told him that he should go to [facility] emergency department for evaluation of his atrial fibrillation. Patient has long-standing history of the same and intermittently goes in and out of it. He states that he thinks of [facility] Coumadin is making his symptoms worse. He denies any significant pain but does feel the pa lpitations. No shortness of breath, nausea, vomiting, diaphoresis. Symptoms are described as moderate. No known aggravating or alleviating factors. Primary Care Doctor: JERRELL GUTIÉRREZ Past Medical [...] chronic pain Stroke TIA (transient ischemic attack) Past Surgical History Procedure Laterality Date Unlisted procedure arthroscopy Knee surgery rt knee, patella Leg surgery LLE Colonoscopy Cholecystectomy, laparoscopic 09/12/2012 Procedure: LAPAROSCOPIC - CHOLECYSTECTOMY; Surgeon: Jevon Vargas DO; Location: [facility] MAIN OR; Service: General; 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; Abdominal surgery Cholecystectomy Skin cancer excision 10/10/2012 Procedure: EXCISION - SKIN CANCER; Surgeon: Sy Fierro MD; Location: [facility] MAIN OR ; Service: Plastics; Laterality: Left; upper arm and upper back w/frozen section Esophagogastroduodenoscopy 03/03/2013 Procedure: ESOPHAGOGASTRODUODENOSCOPY; Surgeon: Howie Gibson MD; Location: [facility] ENDOSCOPY; S ervice: Gastroenterology; 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; Colonoscopy 03/04/2013 Procedure: COLONOSCOPY; Surgeon: Howie Gibson MD; Location: [facility] ENDOSCOPY; Service: Gastroe nterology; 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; Upper gastrointestinal endoscopy Skin biopsy Hernia repair 07/03/2013 Procedure: LAPAROSCOPIC - HERNIA - INCISIONAL; Surgeon: Jevon Vargas DO; Location: [facility] MAIN OR; Service: General; 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; Skin lesion excision Left 05/05/2014 Procedure: EXCISION - LESION - FROZEN SECTION; Surgeon: Sy Fierro MD; Location: [facility] MAIN OR; Service: Plastics; Laterality: Left; forearm Prior to Admission medications Medication Sig Start Date End Date Taking? Authorizing Provider Albuterol Sulfate (VENTOLIN HFA IN) Inhale 2 puffs into the lungs as needed. 108 mcg/act Historical Provider Oebns-J-Hkewhfovfovpq (BEANO) TABS Take 150 Units by mouth [...] 100 mg by mouth nightly. 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 No vision changes, difficulty breathing. No headache, abdominal pain, weakness or rash. No difficulty with urination or bowel movements. No other complaints. See HPI for further relevant details. All systems otherwise negative, except as recorded above and as recorded in the HPI. Physical Exam Filed Vitals: 05/16/14 1142 05/16/14 1153 05/16/14 1328 BP: 174/83 189/81 Pulse: 74 78 Temp: 98 F (36.7 C) TempSrc: Oral Resp: 16 16 Weight: 112.2 kg (247 lb 5.7 oz) SpO2: 97% 95% INTERPRETATION OF VITALS Pulse Oximetry [...] and Emergency Department Course ED Department Course: 11:42 AM Norah Gr is a 58 y.o. male who presents with a chief complaint of palpitations and irr egular heartbeat. Differential diagnosis includes atrial fibrillation, atrial flutter, PACs, PVCs, CO, other. After discussing diagnostic and therapeutic options with the patient we wi ll obtain routine screening labs, EKG, chest x-ray. We will monitor closely and give a dose of aspirin. We will monitor closely and reevaluate. EKG shows sinus rhythm with PACs.. 1:18 PM Labs unremarkable. Apparently the troponin was never runs we will redraw. He has been in si nus the entire stay with no palpitations. 1:42 PM Troponin negative. Patient remains asymptomatic. At this time I feel he is stable for outpa tient management.Typical anticipatory guidelines and strict return to Emergency Department p recautions have been given. All involved are understanding of and in agreement with this alen n. All questions have been addressed to the best of my ability. Records Reviewed Old medical records. Previous electrocardiograms. Nursing notes. Previous radiology studies. Laboratory Evaluation Results Procedure Component Value Ref Range Date/Time POC cardiac troponin [[id number]] Collected: 05/16/14 1323 Order Status: Completed Updated: 05/16/14 1339 POC CARDIAC TROPONIN 0.00 0.00 - 0.10 ng/mL Cardiac Panel [[id number]] (Abnormal) Collected: 05/16/14 1225 Order Status: Completed Updated: 05/16/14 1257 WBC 11.75 (H) 3.80 - 11.00 K/uL RBC 5.12 4.20 - 5.70 M/uL HGB 12.7 (L) 13.2 - 17.0 g/dL HCT 40.1 39.0 - 50.0 % MCV 78.4 (L) 80.0 - 100.0 fl MCH 24.9 (L) 27.0 - 34.0 pg MCHC 31.8 (L) 32.0 - 35.5 g/dL RDW SD 43.3 37 - 53 fl PLT 279 150 - 400 K/uL MPV 7.8 fl DIFF TYPE AUTOMATED NEUTROPHILS 74.16 % LYMPHOCYTES 16.84 % MONOCYTES 6.45 % EOSINOPHILS 1.47 % BASOPHILS 1.08 % NEUTROPHILS ABS 8.71 (H) 1.90 - 7.40 K/uL LYMPHOCYTES ABS 1.98 1.00 - 3.90 K/uL MONOCYTES ABS 0.76 0.00 - 0.80 K/uL EOSINOPHILS ABS 0.17 0.00 - 0.50 K/uL BASOPHILS ABS 0.13 (H) 0.00 - 0.10 K/uL SODIUM 140 135 - 143 mmol/L POTASSIUM 3.7 3.5 - 4.9 mmol/L CHLORIDE 105 99 - 109 mmol/L CO2 29 23 - 32 mmol/L ANION GAP AGAP 10 5 - 20 mmol/L GLUCOSE 182 (H) 65 - 99 mg/dL BUN 15 8 - 25 mg/dL CREATININE 1.22 0.70 - 1.30 mg/dL BUN/CREAT 12 CALCIUM 8.7 8.5 - 10.5 mg/dL TOTAL PROTEIN 7.5 6.3 - 8.2 g/dL Albumin 3.6 3.6 - 5.0 g/dL GLOBULIN 4.0 1.3 - 4.9 g/dL A/G 0.9 (L) 1.0 - 2.4 TBIL 0.2 0.1 - 1.5 mg/dL ALK PHOS 93 35 - 115 U/L AST 19 10 - 45 U/L ALT 23 10 - 65 U/L EGFR >60 >60 mL/min/1.73m2 CPK 133 55 - 400 U/L INR 2.2 APTT 32 23 - 32 seconds MMB 3.9 (H) 0.5 - 3.6 ng/mL CK-MB Index 2.9 Lab Interpretation I have reviewed lab results from the emergency department workup and abnormal results have been posted to the chart. Pertinent positive and negative findings have been addressed appr opriately. Radiology and EKG Evaluation Imaging Results XR Chest PA and Lateral (Final result) Result time: 05/16/14 13:27:49 Final result by Rad Results In Richard (05/16/14 13:27:49) Impression: 1. Normal examination of the chest. No cause for chest pain demonstrated. Narrative: NORAH GR XR CHEST 2 VIEW FRONTAL AND LATERAL 05/16/2014 12:16 PM HISTORY: 58 years. Male. Chest pain. TECHNIQUE: 2 views obtained. COMPARISON: 04/28/2014. FINDINGS: Overlying EKG leads noted. The heart is normal in size. The lungs are normally expanded. The pulmonary vascular sharif griselda is normal. No acute airspace disease, parenchymal nodule, mass, pleural effusion or pne umothorax is noted. No hilar adenopathy is seen. Thoracic spondylosis is noted. ED Interpretation Documented by Norah Barker MD (05/16/14 12:19:22, [facility] Emergency Department, Emergency Medicine) This ED initial read occurred during the ED course and management. The ED interpretation at the time the patient was being clinically managed, and prior to the radiology final read interpretation was: No acute infiltrate. No acute effusion. Cardiomegaly. Normal mediastinum. No pneumothorax. This study has been independently viewed and interpreted by myself. ECG from 1147: Sinus rhythm at 81 bpm. NC, QRS, QT, and axis are normal. Isolated PAC. No ST segment elevations or depression. No significant Q waves. Good R wave progression through the precordial leads. Meets No STEMI criteria for ischemia. In comparison with an old ECG from 05/12/14 there is no significant change with the exception of the isolated PAC. This kyung dy has been independently viewed and interpreted by mt. ED Diagnoses Final diagnoses Palpitations Paroxysmal a-fib Disposition: ED Disposition Discharge Condition at discharge: Stable Follow-up Information Follow up With Details Comments Contact Info Jerrell Gutiérrez DO Schedule an appointment as soon as possible for a visit [address] [place] [address] [facility] [address] [facility] Emergency Department If symptoms worsen [address] [facility] [address] Discharge Medications: New Prescriptions No new medications This document has been prepared with a voice recognition system. The possibility of "sound alike" air hole driller errors, addition and/or deletions may occur. If there is any question p lease contact the author of the document. Procedures Additional Documentation Procedures Norah Barker MD 05/16/14 1345 documented in this en counter Plan of Treatment +--------+---------+ + + + | Date | Type | Specialty | Care Team | Description | +--------+---------+ + + + | 09/10/ | Office | Geriatric Medicine | Mireya Pack, | | | 2019 | Visit | | [facility] [address] | | | | | | [address] [place], | | | | | | [place] [address] | | | | | | [phone] | | | | | | | | +--------+---------+ + + + | 09/29/ | Office | Urology | Mireya Pack, | | | 2019 | Visit | | [facility] [address] | | | | | | [address] [place], | | | | | | [place] [address] | | | | | | [phone] | | | | | | | | | | | | [place], | | | | | | [address] | | | | | | [place] [address] | | | | | | [phone] | | | | | | | | +--------+---------+ + + + documented as of this encounter Procedures + +--------+ + + + | Procedure Name | Priori | Date/Time | Associated Diagnosis | Comments | | | ty | | | | + +--------+ + + + | FL VIDEO SWALLOW W | Routin | 05/29/2014 | | Results for this | | SPEECH | e | 9:30 AM | | procedure are in the | | | | PDT | | results section. | + +--------+ + + + | HISTORICAL LAB PANEL | Routin | 05/16/2014 | | Results for this | | RESULT | e | 12:25 PM | | procedure are in the | | | | PDT | | results section. | + +--------+ + + + | XR CHEST 2 VIEWS | Routin | 05/16/2014 | | Results for this | | | e | 12:16 PM | | procedure are in the | | | | PDT | | results section. | + +--------+ + + + | ECG 12 LEAD | Routin | 05/16/2014 | | Results for this | | | e | 11:47 AM | | procedure are in the | | | | PDT | | results section. | + +--------+ + + + documented in this encounter Results FL Video Swallow w Speech (05/29/2014 9:30 AM PDT) + + | Specimen | + + | | + + + + + | Narrative | Performed At | + + + | This is a non-reportable procedure without a radiologist report and | | | is used for image storage only | | + + + + + | Procedure Note | + + | Joaquin Ramos - 09/20/2018 10:29 PM PDT This is a non-reportable procedure | | without a radiologist report and isused for image storage only | + + HISTORICAL LAB PANEL RESULT (05/16/2014 12:25 PM PDT) + + + + + -+ | Component | Value | Ref Range | Performed | Pathologist | | | | | At | Signature | + + + + + -+ | WBC | 11.75 (H)Comment: | 3.80 - 11.00 | EXTERNAL | | | | Testing performed at | K/uL | LAB | | | | [facility];[address] | | | | | | [address];[place] [address] | | | | + + + + + -+ | Non- | 5.12Comment: Testing | 4.20 - 5.70 | EXTERNAL | | | Red Blood | performed at [facility];[address] | M/uL | LAB | | | Cells | [address];[place] | | | | | Counted | [id number] | | | | + + + + + -+ | Hemoglobin | 12.7 (L)Comment: Testing | 13.2 - 17.0 | EXTERNAL | | | | performed at [facility];[address] | g/dL | LAB | | | | [address];[place] | | | | | | [address] | | | | + + + + + -+ | Hematocrit, | 40.1Comment: Testing | 39.0 - 50.0 % | EXTERNAL | | | POC | performed at [facility];[address] | | LAB | | | | [address];[place] | | | | | | [address] | | | | + + + + + -+ | MCV | 78.4 (L)Comment: Testing | 80.0 - 100.0 fl | EXTERNAL | | | | performed at [facility];[address] | | LAB | | | | [address];[place] | | | | | | [address] | | | | + + + + + -+ | MCH | 24.9 (L)Comment: Testing | 27.0 - 34.0 pg | EXTERNAL | | | | performed at [facility];[address] | | LAB | | | | [address];[place] | | | | | | [address] | | | | + + + + + -+ | MCHC | 31.8 (L)Comment: Testing | 32.0 - 35.5 | EXTERNAL | | | | performed at [facility];[address] | g/dL | LAB | | | | [address];[place] | | | | | | [address] | | | | + + + + + -+ | RDW-CV | 43.3Comment: Testing | 37 - 53 fl | EXTERNAL | | | | performed at [facility];[address] | | LAB | | | | [address];[place] | | | | | | [address] | | | | + + + + + -+ | Platelet | 279Comment: Testing | 150 - 400 K/uL | EXTERNAL | | | Count | performed at [facility];[address] | | LAB | | | Plasma | [address];[place] | | | | | | [address] | | | | + + + + + -+ | MPV | 7.8Comment: Testing | fl | EXTERNAL | | | | performed at [facility];[address] | | LAB | | | | [address];[place] | | | | | | [address] | | | | + + + + + -+ | Differentia | AUTOMATEDComment: | | EXTERNAL | | | l Type | Testing performed at | | LAB | | | | [facility];[address] | | [address];[place] [address] | | | | + + + + + -+ | % Segmented | 74.16Comment: Testing | % | EXTERNAL | | | | performed at [facility];[address] | | LAB | | | Neutrophils | [address];[place] | | | | | | [address] | | | | + + + + + -+ | % | 16.84Comment: Testing | % | EXTERNAL | | | Lymphocytes | performed at [facility];[address] | | LAB | | | | [address];[place] | | | | | | [address] | | | | + + + + + -+ | % Monocytes | 6.45Comment: Testing | % | EXTERNAL | | | | performed at [facility];[address] | | LAB | | | | [address];[place] | | | | | | [address] | | | | + + + + + -+ | % | 1.47Comment: Testing | % | EXTERNAL | | | Eosinophils | performed at [facility];[address] | | LAB | | | | [address];[place] | | | | | | [address] | | | | + + + + + -+ | % Basophils | 1.08Comment: Testing | % | EXTERNAL | | | | performed at [facility];[address] | | LAB | | | | [address];[place] | | | | | | [address] | | | | + + + + + -+ | Absolute | 8.71 (H)Comment: Testing | 1.90 - 7.40 | EXTERNAL | | | Segmented | performed at [facility];[address] | K/uL | LAB | | | Neutrophils | [address];[place] | | | | | | [address] | | | | + + + + + -+ | Absolute | 1.98Comment: Testing | 1.00 - 3.90 | EXTERNAL | | | Lymphocytes | performed at [facility];[address] | K/uL | LAB | | | | [address];[place] | | | | | | [address] | | | | + + + + + -+ | Absolute | 0.76Comment: Testing | 0.00 - 0.80 | EXTERNAL | | | Monocytes | performed at [facility];[address] | K/uL | LAB | | | | [address];[place] | | | | | | [address] | | | | + + + + + -+ | Absolute | 0.17Comment: Testing | 0.00 - 0.50 | EXTERNAL | | | Eosinophils | performed at [facility];[address] | K/uL | LAB | | | | [address];[place] | | | | | | [address] | | | | + + + + + -+ | Absolute | 0.13 (H)Comment: Testing | 0.00 - 0.10 | EXTERNAL | | | Basophils | performed at [facility];[address] | K/uL | LAB | | | | [address];[place] | | | | | | [address] | | | | + + + + + -+ | Na | 140Comment: Testing | 135 - 143 | EXTERNAL | | | | performed at [facility];[address] | mmol/L | LAB | | | | [address];[place] | | | | | | [address] | | | | + + + + + -+ | K | 3.7Comment: Testing | 3.5 - 4.9 | EXTERNAL | | | | performed at [facility];[address] | mmol/L | LAB | | | | [address];[place] | | | | | | [address] | | | | + + + + + -+ | Cl | 105Comment: Testing | 99 - 109 mmol/L | EXTERNAL | | | | performed at [facility];[address] | | LAB | | | | [address];[place] | | | | | | [address] | | | | + + + + + -+ | CO2 | 29Comment: Testing | 23 - 32 mmol/L | EXTERNAL | | | | performed at [facility];[address] | | LAB | | | | [address];[place] | | | | | | [address] | | | | + + + + + -+ | Anion Gap | 10Comment: Testing | 5 - 20 mmol/L | EXTERNAL | | | | performed at [facility];[address] | | LAB | | | | [address];[place] | | | | | | [address] | | | | + + + + + -+ | Glucose, | 182 (H)Comment: Testing | 65 - 99 mg/dL | EXTERNAL | | | Fasting | performed at [facility];[address] | | LAB | | | | [address];[place] | | | | | | [address] | | | | + + + + + -+ | BUN | 15Comment: Testing | 8 - 25 mg/dL | EXTERNAL | | | | performed at [facility];[address] | | LAB | | | | [address];[place] | | | | | | [address] | | | | + + + + + -+ | Creatinine | 1.22Comment: Testing | 0.70 - 1.30 | EXTERNAL | | | | performed at [facility];[address] | mg/dL | LAB | | | | [address];[place] | | | | | | [address] | | | | + + + + + -+ | BUN/Creatin | 12Comment: Testing | | EXTERNAL | | | ine Ratio | performed at [facility];[address] | | LAB | | | | [address];[place] | | | | | | [address] | | | | + + + + + -+ | Calcium | 8.7Comment: Testing | 8.5 - 10.5 | EXTERNAL | | | | performed at [facility];[address] | mg/dL | LAB | | | | [address];[place] | | | | | | [address] | | | | + + + + + -+ | Protein, | 7.5Comment: Testing | 6.3 - 8.2 g/dL | EXTERNAL | | | Total | performed at [facility];[address] | | LAB | | | | Breanna Jenkins;[place] | | | | | | [id number] | | | | + + + + + -+ | Albumin | 3.6Comment: Testing | 3.6 - 5.0 g/dL | EXTERNAL | | | | performed at [facility];[address] | | LAB | | | | [address];[place] | | | | | | [address] | | | | + + + + + -+ | Globulin | 4.0Comment: Testing | 1.3 - 4.9 g/dL | EXTERNAL | | | | performed at [facility];[address] | | LAB | | | | [address];[place] | | | | | | [address] | | | | + + + + + -+ | A/G Ratio | 0.9 (L)Comment: Testing | 1.0 - 2.4 | EXTERNAL | | | | performed at [facility];[address] | | LAB | | | | [address];[place] | | | | | | [address] | | | | + + + + + -+ | Bilirubin | 0.2Comment: Testing | 0.1 - 1.5 mg/dL | EXTERNAL | | | Total | performed at [facility];[address] | | LAB | | | | [address];[place] | | | | | | [address] | | | | + + + + + -+ | ALP, | 93Comment: Testing | 35 - 115 U/L | EXTERNAL | | | External | performed at [facility];[address] | | LAB | | | | [address];[place] | | | | | | [address] | | | | + + + + + -+ | AST | 19Comment: Testing | 10 - 45 U/L | EXTERNAL | | | | performed at [facility];[address] | | LAB | | | | [address];[place] | | | | | | [address] | | | | + + + + + -+ | ALT | 23Comment: Testing | 10 - 65 U/L | EXTERNAL | | | | performed at [facility];[address] | | LAB | | | | [address];[place] | | | | | | [address] | | | | + + + [...] [address];[place] [address] | | | | + + + + + -+ | CK, Total | 133Comment: Testing | 55 - 400 U/L | EXTERNAL | | | | performed at [facility];[address] | | LAB | | | | [address];[place] | | | | | | [address] | | | | + + + + + -+ | INR | 2.2Comment: REFERENCE | | EXTERNAL | | | [...] | | | | | performed at [facility];[address] | | | | | | [address];[place] | | | | | | [address] | | | | + + + + + -+ | aPTT, | 32Comment: Testing | 23 - 32 seconds | EXTERNAL | | | Patient | performed at [facility];[address] | | LAB | | | | [address];[place] | | | | | | [address] | | | | + + + + + -+ | CK-MB | 3.9 (H)Comment: Testing | 0.5 - 3.6 ng/mL | EXTERNAL | | | | performed at [facility];[address] | | LAB | | | | [address] [facility];[place], [place] | | | | | | [address] | | | | + + + [...] +---------+ + + XR Chest 2 Vws (05/16/2014 12:16 PM PDT) + + | Specimen | + + | | + + + + + | Impressions | Performed At | + + + | 1. Normal examination of the chest. No cause for chest pain | | | demonstrated. Electronically signed by Vargas Lau DO on | | | 05/16/2014 1:27 PM | | + + + + + + | Narrative | Performed At | + + + | [facility] XR CHEST 2 VIEW FRONTAL AND LATERAL 05/16/2014 12:16 | | | PM HISTORY: 58 years. Male. Chest pain. TECHNIQUE: 2 | | | views obtained. COMPARISON: 04/28/2014. FINDINGS: Overlying | | | EKG leads noted. The heart is normal in size. The lungs are | | | normally expanded. The pulmonary vascular pattern is normal. No | | | acute airspace disease, parenchymal nodule, mass, pleural effusion or | | | pneumothorax is noted. No hilar adenopathy is seen. Thoracic | | | spondylosis is noted. | | + + + + + | Procedure Note | + + | Joaquin Ramos Conversion - 09/20/2018 10:29 PM PDT [facility] CHEST 2 VIEW FRONTAL | | AND LATERAL05/16/2014 12:16 PM HISTORY:58 years. Male. Chest pain. TECHNIQUE:2 views | | obtained. COMPARISON:04/28/2014. FINDINGS:Overlying EKG leads noted.The heart is normal | | in size. The lungs are normally expanded. The pulmonary vascular pattern is normal. | | No acute airspace disease, parenchymal nodule, mass, pleural effusion or pneumothorax is | | noted. No hilar adenopathy is seen. Thoracic spondylosis is noted. IMPRESSION: 1. | | Normal examination of the chest. No cause for chest pain demonstrated. Electronically | | signed by Vargas Lau DO on 05/16/2014 1:27 PM | |2 views obtained. | | | |COMPARISON: | |04/28/2014. | | | |FINDINGS: | |Overlying EKG leads noted. | |The heart is normal in size. The lungs are normally expanded. The pulmonary vascular sharif griselda is normal. No acute airspace disease, parenchymal nodule, mass, pleural effusion or pne umothorax is noted. No | |hilar adenopathy is seen. Thoracic spondylosis | | is noted. | | | |IMPRESSION: | |1. Normal examination of the chest. No cause for chest pain demonstrated. 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
--- OUTSIDE RECORDS SUMMARY | ~2019-09-09 | XMS | Encounter Summary ---
Demographics + + + | Address | [address] [facility] [address] | | | [place] [address] | + + + | Home Phone [...] + + | Author | [facility] | | | and [place] | + + + | Organization | [facility] | | | and [place] | + + + | Address | Unknown | + + + | Phone | Unavailable | + + + Support + + + + + | Name | Relationship | Address | Phone | + + + + + | Sammi Kohler | ECON | [place] [address] | | + + + + + Care Team Providers + +------+ + | Care Certified Professional Midwife Name | Role | Phone | + +------+ + PCP | Unavailable | + +------+ + Encounter Details +--------+ + + + + | Date | Type | Department | Care Team | Description | +--------+ + + + + | 11/30/ | Emergency | [facility] | Kristian Mae | Hypertension | | 2013 | | [facility] | [facility] [address] | | | | | [facility] | [place], | | | | | [address] | [place] [address] | | | | | [place], [place] | [phone] | | | | | [address] | | | | | | [phone] | | | +--------+ + + + [...] + + documented as of this encounter Kristian Yu MD - 11/30/2013 1:49 PM PDTFormatting of this note might be differen t from the original. ED Provider Notes by Kristian Mae MD at 11/30/13 2627 Author: Kristian Mae MD Service: Emergency Department Author Type: Physician Filed: 11/30/13 1905 Date of Service: 11/30/13 4834 Status: Signed Oil Truck Driver: Kristian Mae MD (Physician) [facility] Department of Emergency Medicine 1:49 PM History of Present Illness Patient Identification Kevyn Guzman is a 57 y.o. male. Patient information was obtained from patient. History/Exam limitations: none. Patient presented to the Emergency Department by: Car Chief Complaint Chief Complaint Patient presents with Hypertension The patient presents to ED with complaints of hypertension. Onset of symptoms was three day s ago, with an ongoing course since that time. Pt states his blood pressure has been uncontr ollably high, and was seen yesterday in the ED for this. Pt was discharged with a clonidine patch, but the pt states he has not been feeling any better. The symptoms are described to b e of moderate severity. Pt states he has a CPAP at home, but reports it does not help him ve ry much. The patient also complains of headache and nausea. Patient denies any other sx at t his time. 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 PCP: JERRELL GUTIÉRREZ Past Medical History Diagnosis [...] - CHOLECYSTECTOMY; Surgeon: Jevon Vargas DO; Location: [facility] MAIN OR; Service: General; 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; Abdominal surgery Cholecystectomy Skin cancer excision 10/10/2012 Procedure: EXCISION - SKIN CANCER; Surgeon: Sy Fierro MD; Location: [facility] MAIN OR ; Service: Plastics; Laterality: Left; upper arm and upper back w/frozen section Esophagogastroduodenoscopy 03/03/2013 Procedure: ESOPHAGOGASTRODUODENOSCOPY; Surgeon: Howie Gibson MD; Location: [facility] ENDOSCOPY; S ervice: Gastroenterology; 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; Colonoscopy 03/04/2013 Procedure: COLONOSCOPY; Surgeon: Howie Gibson MD; Location: [facility] ENDOSCOPY; Service: Gastroe nterology; 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; Upper gastrointestinal endoscopy Skin biopsy Hernia repair 07/03/2013 Procedure: LAPAROSCOPIC - HERNIA - INCISIONAL; Surgeon: Jevon Vargas DO; Location: [facility] MAIN OR; Service: General; Laterality: [...] into the skin nightly. H istorical Provider bkveuugrr-iaxlthty-ullxnsrkd hydroxide-simethicone Take 40 mLs by mouth daily [...] Brother Review of Systems Constitutional: Positive for hypertension Negative for fever, chills Eyes: Negative for vision changes Nose: Negative for congestion, nosebleeds Throat: Negative for sore throat CV/Resp: Negative for chest pain, ckyclitod-bp-vhsmxt, cough GI: Positive for nausea Negative for abdominal pain, vomiting, or diarrhea : Negative for urinary problems Musculoskeletal: Negative for back pain, joint pain Skin: Negative for rash Neuro/Psych: Positive for headache Endo/heme/Lymph: Negative for swollen lymph nodes, easy bruising All other systems reviewed and negative except as noted. Physical Exam BP 204/89 | Pulse 107 | Temp(Src) 98.3 F (36.8 C) (Oral) | Resp 16 | Ht 1.753 m (5' 9.0 2") | Wt 106.142 kg (234 lb) | BMI 34.54 kg/m2 | SpO2 94% Vital signs interpretation: Hypertensive, tachycardic, otherwise normal Pulse Oximetry interpretation: Normal General: Alert, awake, and well oriented, in no apparent distress, garbled speech but is ba seline for him. Eyes: Normal inspection, pupils equal and round, non-icteric HEENT: NCAT Ears normal TMs nl Nose normal Pharynx normal Nl oropharyngeal mucosa Voice nl Neck: Normal inspection, normal ROM with no apparent pain No lymphadenopathy No JVD Cardiovascular: Rate and rhythm normal No murmurs, no bruit or gallop Good distal pulses and good cap refill Chest: Non tender, good excursion Respiratory: Breath sounds normal bilaterally No rales, wheezing or rhonchi No accessory muscle use Lungs are clear Abdomen: Grossly obese, Soft, non-tender at this time, non-distended Normal active bowel sounds No organomegaly No guarding or rebound Back: Normal inspection, good ROM without apparent pain Extremities: No edema, good ROM without aparent pain Mild peripheral edema lower legs, non pitting Skin: Color normal Warm and dry No rash Neuro: Alert, no AMS No motor deficit No sensory deficit Medical Decision Making and Emergency Department Course ED Department Course Patient presents to ED with complaints of hypertension. On exam the patient has garbled spe ech but seems baseline for him, otherwisehis exam was unremarble.. My DDx includes, but is n ot limited to: electrolyte imbalance, accelerated HTN, ACS, rencaal insuffiency, vs other. W ill order CMP, troponin, CBC, and reevaluate the patient. Patient is stable at this time. 3:14 PM After reviewing EKG, I have decided to order a repeat EKG. the initial EKG appears to have lead placement problems. 3:35 PM Blood pressure is better, heart rate is still a little high. Troponin is normal. I will increase dose of Cardizem from 108 to 240. Pt will need to follow up with his PCP on M on. 3:55 PM Pt reevaluation. Pt is doing better at this time. I informed him of lab results and that his blood pressure is doing better, and my recommendation to increase his dose. Pt is ready for discharge at this time. Pt agrees to plan, all questions and concerns were address ed. Regarding the pt's EKG's, he continued to have non specific T wave abnormalities, in inferi or lateral leads, and no signs of acute ischemia. Variations on prev EKG and the one from to day is very similar if not identical to 11/11/2013. Records Reviewed Old medical records. Previous electrocardiograms. Nursing notes. Laboratory Evaluation Results Procedure Component Value Ref Range Date/Time Comprehensive metabolic panel [[id number]] (Abnormal) Collected: 11/30/13 1417 Order Status: Completed Updated: 11/30/13 8743 Specimen Information: Blood SODIUM 140 135 - 143 mmol/L POTASSIUM 3.8 3.5 - 4.9 mmol/L CHLORIDE 107 99 - 109 mmol/L CO2 25 23 - 32 mmol/L ANION GAP AGAP 12 5 - 20 mmol/L GLUCOSE 266 (H) 65 - 99 mg/dL BUN 15 8 - 25 mg/dL CREATININE 1.19 0.70 - 1.30 mg/dL BUN/CREAT 12 CALCIUM 9.2 8.5 - 10.2 mg/dL TOTAL PROTEIN 7.3 6.3 - 8.2 g/dL Albumin 3.5 (L) 3.6 - 5.0 g/dL GLOBULIN 3.8 1.3 - 4.9 g/dL A/G 0.9 (L) 1.0 - 2.4 TBIL 0.3 0.1 - 1.5 mg/dL ALK PHOS 117 (H) 35 - 115 U/L AST 30 10 - 45 U/L ALT 29 10 - 65 U/L EGFR >60 >60 mL/min/1.73m2 POC cardiac troponin [[id number]] Collected: 11/30/13 1420 Order Status: Completed Updated: 11/30/13 1507 POC CARDIAC TROPONIN 0.00 0.00 - 0.10 ng/mL CBC W/Auto Diff (Reflex to Manual) [[id number]] (Abnormal) Collected: 11/30/13 1450 Order Status: Completed Updated: 11/30/13 1505 WBC 10.1 3.8 - 11.0 K/uL RBC 5.22 4.20 - 5.70 M/uL HGB 13.6 13.2 - 17.0 g/dL HCT 41.9 39.0 - 50.0 % MCV 80.3 80.0 - 100.0 fl MCH 26.1 (L) 27.0 - 34.0 pg MCHC 32.5 32.0 - 35.5 g/dL RDW SD 41.1 37 - 53 fl PLT 288 150 - 400 K/uL MPV 7.5 fl DIFF TYPE AUTOMATED NEUTROPHILS 67.6 % LYMPHOCYTES 21.8 % MONOCYTES 9.2 % EOSINOPHILS 0.5 % BASOPHILS 0.9 % NEUTROPHILS ABS 6.8 1.9 - 7.4 K/uL LYMPHOCYTES ABS 2.2 1.0 - 3.9 K/uL MONOCYTES ABS 0.9 (H) 0 - 0.8 K/uL EOSINOPHILS ABS 0.1 0 - 0.5 K/uL BASOPHILS ABS 0.1 0 - 0.1 K/uL I personally reviewed the lab results and they have been posted to the chart. Pertinent po sitive and negative findings have been addressed appropriately. Radiology and EKG Evaluation EKG Interpretation 1406 Rhythm: Sinus tachycardia Ventricular Rate: 103 ID Interval: Normal ST Segments: Normal Significant Q-waves: None Blocks: L posterior fasicular block [place]: Dramatic axis shift Additional Comments: None EKG Interpretation 1522 Rhythm: Sinus Tachycardia, infrequent PACs Ventricular Rate: 103 ID Interval: Normal ST Segments: Normal Significant Q-waves: None Blocks: None [place]: Normal Additional Comments: QT interval is mildly prolonged nonspecific T wave abnormalities diffusely. Compared to EKG on 11/29/13 Imaging Results None ED Diagnosis Final diagnosis Hypertension, improved Disposition: ED Disposition Discharge Condition at discharge: Stable Follow-up Information Follow up With Details Comments Contact Info Jerrell Gutiérrez DO [address] [facility] [address] [facility] Emergency Department If symptoms worsen [address] [facility] [address] Jerrell Gutiérrez DO In 3 days [address] [facility] [address] Discharge Medications: Discharge Medication List as of 11/30/2013 4:15 PM START taking these medications Details diltiazem (CARDIZEM CD) 240 MG 24 hr capsule Take 1 capsule by mouth daily., Starting 11/30, Until 11/30/14, Print Procedures Additional Documentation Procedures Attending Note: Documentation assistance provided by Justine Patino (Scribe). Information recorded by the scribe has been reviewed and validated by me. I ag ree with its contents. MD Kristian Silverman MD 11/30/13 1905 onversion Merchant saction, Provider Unknown - 11/30/2013 1:40 PM PDTFormatting of this note might be differen t from the original. ED Notes by Yamileth Harvey RN at 11/30/13 1340 Author: Yamileth Harvey RN Service: (none) Author Type: Registered Nurse Filed: 11/30/13 1343 Date of Service: 11/30/13 1340 Status: Signed Oil Truck Driver: Yamileth Harvey RN (Registered Nurse) Per [facility]: pt resident of [facility]. Seen in ED yesterday with HTN about 200/10 0 for 2 days. Pt now taking clonidine patch, but still hypertensive, today c/o h/a. Denies C P, SOB or other sx. Yamileth Harvey RN 11/30/131341 onver ivana Transaction, Provider Unknown - 11/30/2013 1:40 PM PDT ED Notes by Tona Vick RN at 11/30/131339 Author: Tona Vick RN Service: (none) Author Type: Registered Nurse Filed: 11/30/131339 Date of Service: 11/30/131339 Status: Signed Oil Truck Driver: Tona Vick RN (Registered Nurse) Bed: 1108 Expected date: 11/30/13 Expected time: 1:40 PM Means of arrival: Comments: 56 y/o male bp and kelley docume nted in this encounter Plan of Treatment +--------+---------+ + + + | Date | Type | Specialty | Care Team | Description | +--------+---------+ + + + | 09/10/ | Office | Geriatric Medicine | Mireya Pack, | | | 2019 | Visit | | GALLERY ASSISTANT [address] | | | | | | [address] [place], | | | | | | [place] [address] | | | | | | [phone] | | | | | | | | +--------+---------+ + + + | 09/29/ | Office | Urology | Mireya Pack, | | | 2019 | Visit | | GALLERY ASSISTANT [address] | | | | | | [address] [place], | | | | | | [place] [address] | | | | | | [phone] | | | | | | | | | | | | Toy Wild, DO | | | | | | [address] | | | | | | [place] [address] | | | | | | [phone] | | | | | | | | +--------+---------+ + + + documented as of this encounter Procedures + +--------+ + + + | Procedure Name | Priori | Date/Time | Associated Diagnosis | Comments | | | ty | | | | + +--------+ + + + | ECG 12 LEAD | Routin | 11/30/2013 | | Results for this | | | e | 3:22 PM | | procedure are in the | | | | PDT | | results section. | + +--------+ + + + | EXTERNAL LAB: CBC | Routin | 11/30/2013 | | Results for this | | | e | 2:50 PM | | procedure are in the | | | | PDT | | results section. | + +--------+ + + + | B TYPE NATRIURETIC | Routin | 11/30/2013 | | Results for this | | PEPTIDE | e | 2:50 PM | | procedure are in the | | | | PDT | | results section. | + +--------+ + + + | COMPREHENSIVE | Routin | 11/30/2013 | | Results for this | | METABOLIC PANEL | e | 2:17 PM | | procedure are in the | | | | PDT | | results section. | + +--------+ + + + | ECG 12 LEAD | Routin | 11/30/2013 | | Results for this | | | e | 2:06 PM | | procedure are in the | | | | PDT | | results section. | + +--------+ + + + documented in this encounter Results ECG 12 lead (11/30/2013 3:22 PM PDT) + + + + + + | Component | Value | Ref Range | Performed | Pathologist | | | | | At | Signature | + + + + + + | DIAGNOSIS: | Sinus tachycardia with | | EXTERNAL | | | | Premature atrial | | LAB | | | | complexesT wave | | | | | | abnormality, consider | | | | | | inferior | | | | | | ischemiaAbnormal ECGWhen | | | | | | compared with ECG of | | | | | | 30-NOV-2013 | | | | | | 14:06,Premature atrial | | | | | | complexes are now | | | | | | PresentLeft posterior | | | | | | fascicular block is no | | | | | | longer | | | | | | PresentNon-specific | | | | | | change in ST segment in | | | | | | Lateral leadsThis ECG | | | | | | contains Unconfirmed | | | | | | Interpretation | | | | | | Statements. See ED | | | | | | Record for Physician | | | | | | Interpretation. | | | | | | Confirmed by MUSE READ | | | | | | ONLY, -COMPUTER ([id number]), | | | | | | associate entertainment editor Leanna Cheng | | | | | | ([phone]) on 12/01/2013 | | | | | | 7:17:37 AM | | | | + + + + + + + + | Specimen | + + | | + + + + + | Narrative | Performed At | + + + | Historically converted procedure from [facility] Epic environment | EXTERNAL LAB | + + + + +---------+ + + | Performing | Address | City/State/Zipcode | Phone Number | | Organization | | | | + +---------+ + + | EXTERNAL LAB | | | | + +---------+ + + External Lab: CBC (11/30/2013 2:50 PM PDT) + + + + + + | Component | Value | Ref Range | Performed | Pathologist | | | | | At | Signature | + + + + + + | WBC | 10.1Comment: Testing | 3.8 - 11.0 K/uL | EXTERNAL | | | | performed at [facility];[address] | | LAB | | | | [address];[place] | | | | | | [address] | | | | + + + + + + | Non- | 5.22Comment: Testing | 4.20 - 5.70 | EXTERNAL | | | Red Blood | performed at [facility];[address] | M/uL | LAB | | | Cells | [address];[place] | | | | | Counted | [address] | | | | + + + + + + | Hemoglobin | 13.6Comment: Testing | 13.2 - 17.0 | EXTERNAL | | | | performed at [facility];[address] | g/dL | LAB | | | | [address];[place] | | | | | | [address] | | | | + + + + + + | Hematocrit, | 41.9Comment: Testing | 39.0 - 50.0 % | EXTERNAL | | | POC | performed at [facility];[address] | | LAB | | | | [address];[place] | | | | | | [address] | | | | + + + + + + | MCV | 80.3Comment: Testing | 80.0 - 100.0 fl | EXTERNAL | | | | performed at [facility];[address] | | LAB | | | | [address];[place] | | | | | | [address] | | | | + + + + + + | MCH | 26.1 (L)Comment: Testing | 27.0 - 34.0 pg | EXTERNAL | | | | performed at [facility];[address] | | LAB | | | | [address];[place] | | | | | | [address] | | | | + + + + + + | MCHC | 32.5Comment: Testing | 32.0 - 35.5 | EXTERNAL | | | | performed at [facility];[address] | g/dL | LAB | | | | [address];[place] | | | | | | [address] | | | | + + + + + + | RDW-CV | 41.1Comment: Testing | 37 - 53 fl | EXTERNAL | | | | performed at [facility];[address] | | LAB | | | | [address];[place] | | | | | | [address] | | | | + + + + + + | Platelet | 288Comment: Testing | 150 - 400 K/uL | EXTERNAL | | | Count | performed at [facility];[address] | | LAB | | | Plasma | [address];[place] | | | | | | [address] | | | | + + + + + + | MPV | 7.5Comment: Testing | fl | EXTERNAL | | | | performed at [facility];[address] | | LAB | | | | [address];[place] | | | | | | [address] | | | | + + + + + + | Differentia | AUTOMATEDComment: | | EXTERNAL | | | l Type | Testing performed at | | LAB | | | | [facility];[address];[place] [address] | | | | + + + + + + | % Segmented | 67.6Comment: Testing | % | EXTERNAL | | | | performed at [facility];[address] | | LAB | | | Neutrophils | [address];[place] | | | | | | [address] | | | | + + + + + + | % | 21.8Comment: Testing | % | EXTERNAL | | | Lymphocytes | performed at [facility];[address] | | LAB | | | | [address];[place] | | | | | | [address] | | | | + + + + + + | % Monocytes | 9.2Comment: Testing | % | EXTERNAL | | | | performed at [facility];[address] | | LAB | | | | [address];[place] | | | | | | [address] | | | | + + + + + + | % | 0.5Comment: Testing | % | EXTERNAL | | | Eosinophils | performed at [facility];[address] | | LAB | | | | [address];[place] | | | | | | [address] | | | | + + + + + + | % Basophils | 0.9Comment: Testing | % | EXTERNAL | | | | performed at [facility];[address] | | LAB | | | | [address];[place] | | | | | | [address] | | | | + + + + + + | Absolute | 6.8Comment: Testing | 1.9 - 7.4 K/uL | EXTERNAL | | | Segmented | performed at [facility];[address] | | LAB | | | Neutrophils | [address];[place] | | | | | | [address] | | | | + + + + + + | Absolute | 2.2Comment: Testing | 1.0 - 3.9 K/uL | EXTERNAL | | | Lymphocytes | performed at [facility];[address] | | LAB | | | | [address];[place] | | | | | | [address] | | | | + + + + + + | Absolute | 0.9 (H)Comment: Testing | 0 - 0.8 K/uL | EXTERNAL | | | Monocytes | performed at [facility];[address] | | LAB | | | | [address];[place] | | | | | | [address] | | | | + + + + + + | Absolute | 0.1Comment: Testing | 0 - 0.5 K/uL | EXTERNAL | | | Eosinophils | performed at [facility];[address] | | LAB | | | | [address];[place] | | | | | | [address] | | | | + + + + + + | Absolute | 0.1Comment: Testing | 0 - 0.1 K/uL | EXTERNAL | | | Basophils | performed at [facility];[address] | | LAB | | | | [address];[place], [place] | | | | | | [address] | | | | + + + + + + + + | Specimen | + + | | + + + +---------+ + + | Performing | Address | City/State/Zipcode | Phone Number | | Organization | | | | + +---------+ + + | EXTERNAL LAB | | | | + +---------+ + + B Type Natriuretic Peptide (11/30/2013 2:50 PM PDT) + + + + + + | Component | Value | Ref Range | Performed | Pathologist | | | | | At | Signature | + + + + + + | BNP | <5.0Comment: Testing | 0 - 100 pg/mL | EXTERNAL | | | | performed at [facility] | | LAB | | | | [address];[place] | | | | | | [address] | | | | + + + + + + + + | Specimen | + + | | + + + +---------+ + + | Performing | Address | City/State/Zipcode | Phone Number | | Organization | | | | + +---------+ + + | EXTERNAL LAB | | | | + +---------+ + + Comprehensive Metabolic Panel (11/30/2013 2:17 PM PDT) + + + + + [...] [place] | | | | | | [address] | | | | + + + + + + | K | 3.8Comment: SLT | 3.5 - 4.9 | EXTERNAL | | | | HEMOLYSISTesting | mmol/L | LAB | | | | performed at [facility];[address] | | | | | | [address];[place] | | | | | | [address] | | | | + + + + + + | Cl | 107Comment: Testing | 99 - 109 mmol/L | EXTERNAL | | | | performed at [facility];[address] | | LAB | | | | [address];[place] | | | | | | [address] | | | | + + + + + + | CO2 | 25Comment: Testing | 23 - 32 mmol/L | EXTERNAL | | | | performed at [facility];[address] | | LAB | | | | [address];[place] | | | | | | [address] | | | | + + + + + + | Anion Gap | 12Comment: Testing | 5 - 20 mmol/L | EXTERNAL | | | | performed at [facility];[address] | | LAB | | | | [address];[place] | | | | | | [address] | | | | + + + + + + | Glucose, | 266 (H)Comment: Testing | 65 - 99 mg/dL | EXTERNAL | | | Fasting | performed at [facility];[address] | | LAB | | | | [address];[place] | | | | | | [address] | | | | + + + + + + | BUN | 15Comment: Testing | 8 - 25 mg/dL | EXTERNAL | | | | performed at [facility];[address] | | LAB | | | | [address];[place] | | | | | | [address] | | | | + + + + + + | Creatinine | 1.19Comment: Testing | 0.70 - 1.30 | EXTERNAL | | | | performed at [facility];[address] | mg/dL | LAB | | | | [address];[place] | | | | | | [address] | | | | + + + + + + | BUN/Creatin | 12Comment: Testing | | EXTERNAL | | | ine Ratio | performed at [facility];[address] | | LAB | | | | [address];[place] | | | | | | [address] | | | | + + + + + + | Calcium | 9.2Comment: Testing | 8.5 - 10.2 | EXTERNAL | | | | performed at [facility];[address] | mg/dL | LAB | | | | [address];[place] | | | | | | [address] | | | | + + + + + + | Protein, | 7.3Comment: Testing | 6.3 - 8.2 g/dL | EXTERNAL | | | Total | performed at [facility];[address] | | LAB | | | | [address];[place] | | | | | | [address] | | | | + + + + + + | Albumin | 3.5 (L)Comment: Testing | 3.6 - 5.0 g/dL | EXTERNAL | | | | performed at [facility];[address] | | LAB | | | | [address];[place] | | | | | | [address] | | | | + + + + + + | Globulin | 3.8Comment: Testing | 1.3 - 4.9 g/dL | EXTERNAL | | | | performed at [facility];[address] | | LAB | | | | [address];[place] | | | | | | [address] | | | | + + + + + + | A/G Ratio | 0.9 (L)Comment: Testing | 1.0 - 2.4 | EXTERNAL | | | | performed at [facility];[address] | | LAB | | | | [address];[place] | | | | | | [address] | | | | + + + + + + | Bilirubin | 0.3Comment: Testing | 0.1 - 1.5 mg/dL | EXTERNAL | | | Total | performed at [facility];[address] | | LAB | | | | [address];[place] | | | | | | [address] | | | | + + + + + + | ALP, | 117 (H)Comment: Testing | 35 - 115 U/L | EXTERNAL | | | External | performed at [facility];[address] | | LAB | | | | [address];[place] | | | | | | [address] | | | | + + + + + + | AST | 30Comment: SLT | 10 - 45 U/L | EXTERNAL | | | | HEMOLYSISTesting | | LAB | | | | performed at [facility];[address] | | | | | | [address];[place] | | | | | | [address] | | | | + + + + + + | ALT | 29Comment: Testing | 10 - 65 U/L | EXTERNAL | | | | performed at [facility];[address] | | LAB | | | | [address];[place] | | | | | | [address] | | | | + + + [...] | at [facility];[address] [place] [address] | | | | | | Blvd;[place] [address] | | | | + + + [...] + +---------+ + + ECG 12 lead (11/30/2013 2:06 PM PDT) + + + + + + | Component | Value | Ref Range | Performed | Pathologist | | | | | At | Signature | + + + + + + | DIAGNOSIS: | Sinus tachycardiaLeft | | EXTERNAL | | | | posterior fascicular | | LAB | | | | blockPossible Inferior | | | | | | infarct , age | | | | | | undeterminedAbnormal | | | | | | ECGWhen compared with | | | | | | ECG of 29-NOV-2013 | | | | | | 11:49,Left posterior | | | | | | fascicular block is now | | | | | | PresentT wave inversion | | | | | | more evident in Inferior | | | | | | leadsT wave inversion | | | | | | now evident in Lateral | | | | [...] (500), | | | | | | associate entertainment editor Anshu Soliz | | | | | | (35) on 11/30/2013 | | | | | | 3:42:18 PM | | | | + + + + + + + + | Specimen | + + | | + + + + + | Narrative | Performed At | + + + | Historically converted procedure from [facility] Epic environment | EXTERNAL LAB | + + + + +---------+ + + | Performing | Address | City/State/Zipcode | Phone Number | | Organization | | | | + +---------+ + + | EXTERNAL LAB | | | | + +---------+ + + documented in this encounter Visit Diagnoses + + | Diagnosis | + + | Hypertension Unspecified essential hypertension | + + documented in this encounter
--- OUTSIDE RECORDS SUMMARY | ~2019-09-09 | XMS | Encounter Summary ---
Demographics + + + | Address | [address] | | | [place] [address] | + + + | Home Phone [...] + | Sammi Kohler | ECON | [place] [address] | | + + + + + Care Team Providers + +------+ + | [facility] [employer] Leader Name | Role | Phone | + +------+ + PCP | Unavailable | + +------+ + Encounter Details +--------+ + + + + | Date | Type | Department | Care Team | Description | +--------+ + + + + | 11/22/ | Emergency | [facility] | Sona Chen MD | Chest wall pain; | | 2015 - | | MEDICAL CENTER | [address] [facility] | Nausea | | | | EMERGENCY CENTER | [place] [address] | | | 11/23/ | | [address] | [phone] | | | 2014 | | [place], [place] | | | | | | [address] | | | | | | [phone] | | | +--------+ + + + [...] ED Notes Conversion Transaction, Provider Unknown - 11/23/2014 1:26 AM PDTFormatting of this note m ight be different from the original. ED Notes by John Philippe RN at 11/23/14125 Author: John Philippe RN Service: Emergency Department Author Type: Registered Nurse Filed: 11/23/14125 Date of Service: 11/23/14125 Status: Signed Trim Stencil Maker: John Philippe RN (Registered Nurse) R AC IV removed. John Philippe RN 11/23/14125 Sona Bledsoe MD - 11/22/2014 11:42 PM PDTFormatting of this note might be different from the origin al. ED Provider Notes by Sona Chen MD at 11/22/14 936 Author: Sona Chen MD Service: (none) Author Type: Physician Filed: 11/23/14 0607 Date of Service: 11/22/142341 Status: Signed Trim Stencil Maker: Sona Chen MD (Physician) Procedure Orders: 1. Interpretation for ED EKG [[id number]] ordered by Sona Chen MD at 11/23/14 0528 [facility] Department of Emergency Medicine History of Present Illness Patient Identification Norah Gr is a 58 y.o. male. Patient information was obtained from patient. History/Exam limitations: none. Patient presented to the Emergency Department by: Car Chief Complaint Chief Complaint Patient presents with Chest Pain The patient complains of intermittent CP. Onset of symptoms is chronic with a recent episod e 1.5 hours ago, and a persistent course since that time. Pt reports he regularly experience s episodes of CP like this and notes that today's episode feels similar. Pt also c/o vomitin g x1, spitting up, intermittent cough, dizziness which he notes is new. Pt states he tripped and hit his head 1 week ago which he was evaluated for in the ED. Pt lives alone and has kelley d many prior ED visits Pt denies fever or any other sx at this time. Past Medical History Diagnosis Date Diabetes mellitus [...] pain Stroke (HCC) TIA (transient ischemic attack) intermediate (current) use of 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 Past Surgical History [...] w/frozen section Esophagogastroduodenoscopy 03/03/2013 Procedure: ESOPHAGOGASTRODUODENOSCOPY; Surgeon: Howei Gibson MD; Location: [facility] ENDOSCOPY; S ervice: Gastroenterology; 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; Colonoscopy 03/04/2013 Procedure: COLONOSCOPY; Surgeon: Howie Gibson MD; Location: [facility] ENDOSCOPY; Service: Gastroe nterology; 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; Upper gastrointestinal endoscopy Skin biopsy Hernia repair 07/03/2013 Procedure: LAPAROSCOPIC - HERNIA - INCISIONAL; Surgeon: Jevon Vargas DO; Location: [facility] MAIN OR; Service: General; 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; Skin lesion excision Left 05/05/2014 Procedure: EXCISION - LESION - FROZEN SECTION; Surgeon: Sy Fierro MD; Location: [facility] MAIN OR; Service: Plastics; Laterality: Left; forearm Prior to Admission medications Medication Sig Start Date End Date Taking? Authorizing Provider Albuterol Sulfate (VENTOLIN HFA IN) Inhale 2 puffs into the lungs as needed. 108 mcg/act Historical Provider Dmltt-X-Vokzmasxqukcz (BEANO) TABS Take 150 Units by mouth [...] 100 mg by mouth nightly. Historical Provider zmjxuxpql-awmwdkpq-geigzgkap hydroxide-simethicone Take 40 mLs by mouth daily [...] Lives alone x 1 wk, moved from [facility], , 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 2 falls in the last 6 months. Family History Problem Relation Age of Onset Heart disease Father Heart disease Sister Diabetes type II Sister Heart Problems Brother Review of Systems Constitutional: No fever ENT: No blindness, no rhinitis, no sore throat Cardiovascular: Yes chest pain-chronic Respiratory: Yes intermittent cough No shortness of breath, Gastrointestinal: Yes nausea and vomiting, "spitting up" No abdominal pain, diarrhea, black or bloody stools Genitourinary: No dysuria, hematuria Musculoskeletal: No acute physical injury. Skin: No laceration or rash Neuro and psych: Yes dizziness, head injury 1 week ago (already been evaluated) No seizure, headache Endocrine/Heme/Lymph: No easy bruising or bleeding. Physical Exam BP 141/78 mmHg | Pulse 63 | Resp 18 | Wt 101.606 kg (224 lb) | SpO2 94% Vital Sign interpretation: mildly hypertensive, otherwise normal Pulse Oximetry interpretation: normal General: Alert, in no apparent distress Eyes: Non-icteric ENT: Normal external exam Neck: Supple Cardiovascular: Warm and well perfused, RRR, TTP of anterior chest wall Respiratory: No respiratory distress, lungs clear Extremities: BARNARD, No lower extremity edema Equal radial pulses bilat Back: Normal ROM Skin: Color normal Warm and dry No rash Neuro: Alert, no AMS No gross motor/sensory deficits Medical Decision Making and Emergency Department Course ED Department Course Pt presents with an episode of CP which he states he regularly experiences. Pt has an exten sive h/o of past medical problems which are being evaluated and treated for by his PCP. I wi ll order cardiac panel, CXR, and reassess. Pt has been seen multiple times for CP in the [facility]. He had cardiac cath a couple years ago that showed minimal CAD, as well as a negative st ress test this past July. EKG non-specific and unchanged from baseline. 12:55 PM Informed by nursing staff is requesting 7 up for his nausea. I will give Zofran. Lab interpretation: Mild leukocytosis. Troponin is negative. 1:10 AM Pt rechecked and states he is still feeling nauseated, will give him the 7 up that he requested prior because he believes that it will help. I have discussed my clinical impre ssion and treatment plan with the pt. We have specifically discussed the signs and symptoms that would constitute the need for an immediate return to the ED, the importance of continue d outpatient f/u and the importance of compliance with the d/c instructions. I have answered any questions that the pt has to the best of my ability. Based upon the pt s history, phy sical exam, ED course, and diagnostic studies, I feel that there is no current emergent medi amadou condition that warrants admission, transfer, or further ED treatment at this time. The p t understands and agrees with the plan for d/c Records Reviewed Old medical records. Nursing notes. Laboratory Evaluation Results Procedure Component Value Ref Range Date/Time Cardiac Panel [[id number]] (Abnormal) Collected: 11/22/14 2340 Order Status: Completed Updated: 11/23/14 0006 WBC 12.67 (H) 3.80 - 11.00 K/uL RBC 5.36 4.20 - 5.70 M/uL HGB 12.9 (L) 13.2 - 17.0 g/dL HCT 40.7 39.0 - 50.0 % MCV 76.0 (L) 80.0 - 100.0 fl MCH 24.1 (L) 27.0 - 34.0 pg MCHC 31.7 (L) 32.0 - 35.5 g/dL RDW SD 42.0 37 - 53 fl PLT 326 150 - 400 K/uL MPV 7.3 fl DIFF TYPE AUTOMATED NEUTROPHILS 64.30 % LYMPHOCYTES 23.68 % MONOCYTES 9.63 % EOSINOPHILS 1.40 % BASOPHILS 0.99 % NEUTROPHILS ABS 8.14 (H) 1.90 - 7.40 K/uL LYMPHOCYTES ABS 3.00 1.00 - 3.90 K/uL MONOCYTES ABS 1.22 (H) 0.00 - 0.80 K/uL EOSINOPHILS ABS 0.18 0.00 - 0.50 K/uL BASOPHILS ABS 0.13 (H) 0.00 - 0.10 K/uL MORPHOLOGY 2+ Platelet Estimate ADEQUATE SODIUM 142 135 - 143 mmol/L POTASSIUM 3.1 (L) 3.5 - 4.9 mmol/L CHLORIDE 108 99 - 109 mmol/L CO2 28 23 - 32 mmol/L ANION GAP AGAP 9 5 - 20 mmol/L GLUCOSE 209 (H) 65 - 99 mg/dL BUN 12 8 - 25 mg/dL CREATININE 0.90 0.70 - 1.30 mg/dL BUN/CREAT 13 CALCIUM 8.4 (L) 8.5 - 10.5 mg/dL TOTAL PROTEIN 7.5 6.3 - 8.2 g/dL Albumin 3.5 (L) 3.6 - 5.0 g/dL GLOBULIN 4.1 1.3 - 4.9 g/dL A/G 0.8 (L) 1.0 - 2.4 TBIL 0.3 0.1 - 1.5 mg/dL ALK PHOS 100 35 - 115 U/L AST 15 10 - 45 U/L ALT 19 10 - 65 U/L EGFR >60 >60 mL/min/1.73m2 CPK 138 55 - 400 U/L INR 1.1 APTT 26 23 - 32 seconds MMB 3.8 (H) 0.5 - 3.6 ng/mL CK-MB Index 2.8 POC cardiac troponin [[id number]] Collected: 11/22/14 2341 Order Status: Completed Updated: 11/22/142353 POC CARDIAC TROPONIN 0.01 0.00 - 0.10 ng/mL I personally reviewed the lab results and they have been posted to the chart. Pertinent po sitive and negative findings have been addressed appropriately. Radiology and EKG Evaluation Imaging Results XR Chest PA and Lateral (In process) ED Diagnoses Final diagnoses Chest wall pain Nausea Disposition: ED Disposition Discharge Condition at discharge: Stable Follow-up Information Follow up With Details Comments Contact Info Jerrell Diego DO Schedule an appointment as soon as possible for a visit in 1 week for follow up as needed [address] [place] [address] [facility] [address] [facility] Emergency Department If symptoms worsen [address] [facility] [phone] Discharge Medications: Discharge Medication List as of 11/23/2014 1:23 AM Procedures Additional Documentation EKG Performed by: SONA CHEN Authorized by: SONA CHEN Rhythm: sinus Ventricular Rate: 79 OK Interval: Normal ST Segments comment: Non-specific T wave flattening in lateral and inferior leads Significant Q-waves: none Blocks: None QRS axis: Normal Attending Note: Documentation assistance provided by Tara Miller (Scribe). Information recorded by the scribe has been reviewed and validated by me. Troy laughlin with its contents. MD Sona Maloney MD 11/23/14 0607 Cleo light in this encounter Plan of Treatment +--------+---------+ + + + | Date | Type | Specialty | Care Team | Description | +--------+---------+ + + + | 09/10/ | Office | Geriatric Medicine | Mireya Pack, | | 2019 | Visit | | [employer] [address] | | | | | | [address] [place], | | | | | | [place] [address] | | | | | | [phone] | | | | | | | | +--------+---------+ + + + | 09/29/ | Office | Urology | Mireya Pack, | | 2019 | Visit | | [employer] WOR[employer] MA[employer]GER [address] | | | | | | [address] [facility] | | | | | | [place] [address] | | | | | | [phone] | | | | | | | | | | | | Toy Wild W, DO | | | | | | [address] | | | | | | [place] [address] | | | | | | [phone] | | | | | | | | +--------+---------+ + + + documented as of this encounter Procedures + +--------+ + + + | Procedure Name | Priori | Date/Time | Associated Diagnosis | Comments | | | ty | | | | + +--------+ + + + | XR CHEST 2 VIEWS | Routin | 11/23/2014 | | Results for this | | | e | 12:29 AM | | procedure are in the | | | | PDT | | results section. | + +--------+ + + + | HISTORICAL LAB PANEL | Routin | 11/22/2014 | | Results for this | | RESULT | e | 11:40 PM | | procedure are in the | | | | PDT | | results section. | + +--------+ + + + | ECG 12 LEAD | Routin | 11/22/2014 | | Results for this | | | e | 11:35 PM | | procedure are in the | | | | PDT | | results section. | + +--------+ + + + documented in this encounter Results XR Chest 2 Vws (11/23/2014 12:29 AM PDT) + + | Specimen | + + | | + + + + + | Impressions | Performed At | + + + | 1. Subsegmental atelectasis lateral left base Electronically | | | signed by Addison Jackson MD on 11/23/2014 7:17 AM | | + + + + + + | Narrative | Performed At | + + + | [facility] XR CHEST 2 VIEW FRONTAL AND LATERAL 11/23/2014 12:29 | | | AM HISTORY: 58 years. Male. Chest pain TECHNIQUE: XR | | | CHEST 2 VIEW FRONTAL AND LATERAL. Standard technique. Total of 4 | | | images obtained. COMPARISON: 08/31/2014 FINDINGS: Left | | | lateral subsegmental atelectasis. Remainder the lungs are clear. | | | Cardiac size normal. Normal pulmonary vascular pattern. No | | | pneumothorax or significant effusion. | | + + + + + | Procedure Note | + + | Joaquin Ramos Conversion - 09/20/2018 10:29 PM SHALONDA GRXR CHEST 2 VIEW FRONTAL | | AND FKBADNM1311/23/2014 12:29 AM HISTORY:58 years. Male. Chest pain TECHNIQUE:XR CHEST 2 | | VIEW FRONTAL AND LATERAL. Standard technique. Total of 4 images obtained. | | COMPARISON:08/31/2014 FINDINGS:Left lateral subsegmental atelectasis. Remainder the lungs | | are clear. Cardiac size normal. Normal pulmonary vascular pattern. No pneumothorax or | | significant effusion. IMPRESSION: 1. Subsegmental atelectasis lateral left base | | | |TECHNIQUE: | |XR CHEST 2 VIEW FRONTAL AND LATERAL. Standard technique. Total of 4 images obtained. | | | |COMPARISON: | |08/31/2014 | | | |FINDINGS: | |Left lateral subsegmental atelectasis. Remainder the lungs are clear. Cardiac size normal. Normal pulmonary vascular pattern. No pneumothorax or significant effusion. | | | |IMPRESSION: | |1. Subsegmental atelectasis lateral left base | | | | | + + HISTORICAL LAB PANEL RESULT (11/22/2014 11:40 PM PDT) + + + + + + | Component | Value | Ref Range | Performed | Pathologist | | | | | At | Signature | + + + + + + | WBC | 12.67 (H)Comment: | 3.80 - 11.00 | EXTERNAL | | | | Testing performed at | K/uL | LAB | | | | [facility];[address] [place] [address] | | | | | | [place] [address] | | | | + + + + + + | Non- | 5.36Comment: Testing | 4.20 - 5.70 | EXTERNAL | | | Red Blood | performed at [facility];[address] | M/uL | LAB | | | Cells | [address];[place] | | | | | Counted | [phone] | | | | + + + + + + | Hemoglobin | 12.9 (L)Comment: Testing | 13.2 - 17.0 | EXTERNAL | | | | performed at [facility];[address] | g/dL | LAB | | | | [address];[place] | | | | | | [address] | | | | + + + + + + | Hematocrit, | 40.7Comment: Testing | 39.0 - 50.0 % | EXTERNAL | | | POC | performed at [facility];[address] | | LAB | | | | [address];[place] | | | | | | [address] | | | | + + + + + + | MCV | 76.0 (L)Comment: Testing | 80.0 - 100.0 fl | EXTERNAL | | | | performed at [facility];[address] | | LAB | | | | [address];[place] | | | | | | [address] | | | | + + + + + + | MCH | 24.1 (L)Comment: Testing | 27.0 - 34.0 pg | EXTERNAL | | | | performed at [facility];[address] | | LAB | | | | [address];[place] | | | | | | [address] | | | | + + + + + + | MCHC | 31.7 (L)Comment: Testing | 32.0 - 35.5 | EXTERNAL | | | | performed at [facility];[address] | g/dL | LAB | | | | [address];[place] | | | | | | [address] | | | | + + + + + + | RDW-CV | 42.0Comment: Testing | 37 - 53 fl | EXTERNAL | | | | performed at [facility];[address] | | LAB | | | | [address];[place] | | | | | | [address] | | | | + + + + + + | Platelet | 326Comment: Testing | 150 - 400 K/uL | EXTERNAL | | | Count | performed at [facility];[address] | | LAB | | | Plasma | [address];[place] | | | | | | [address] | | | | + + + + + + | MPV | 7.3Comment: Testing | fl | EXTERNAL | | | | performed at [facility];[address] | | LAB | | | | [address];[place] | | | | | | [address] | | | | + + + + + + | Differentia | AUTOMATEDComment: | | EXTERNAL | | | l Type | Testing performed at | | LAB | | | | [facility];[address];[place] [address] | | | | + + + + + + | % Segmented | 64.30Comment: Testing | % | EXTERNAL | | | | performed at [facility];[address] | | LAB | | | Neutrophils | [address];[place] | | | | | | [address] | | | | + + + + + + | % | 23.68Comment: Testing | % | EXTERNAL | | | Lymphocytes | performed at [facility];[address] | | LAB | | | | [address];[place] | | | | | | [address] | | | | + + + + + + | % Monocytes | 9.63Comment: Testing | % | EXTERNAL | | | | performed at [facility];[address] | | LAB | | | | [address];[place] | | | | | | [address] | | | | + + + + + + | % | 1.40Comment: Testing | % | EXTERNAL | | | Eosinophils | performed at [facility];[address] | | LAB | | | | [address];[place] | | | | | | [address] | | | | + + + + + + | % Basophils | 0.99Comment: Testing | % | EXTERNAL | | | | performed at [facility];[address] | | LAB | | | | [address];[place] | | | | | | [address] | | | | + + + + + + | Absolute | 8.14 (H)Comment: Testing | 1.90 - 7.40 | EXTERNAL | | | Segmented | performed at [facility];[address] | K/uL | LAB | | | Neutrophils | [address];[place] | | | | | | [address] | | | | + + + + + + | Absolute | 3.00Comment: Testing | 1.00 - 3.90 | EXTERNAL | | | Lymphocytes | performed at [facility];[address] | K/uL | LAB | | | | [address];[place] | | | | | | [address] | | | | + + + + + + | Absolute | 1.22 (H)Comment: Testing | 0.00 - 0.80 | EXTERNAL | | | Monocytes | performed at [facility];[address] | K/uL | LAB | | | | [address];[place] | | | | | | [address] | | | | + + + + + + | Absolute | 0.18Comment: Testing | 0.00 - 0.50 | EXTERNAL | | | Eosinophils | performed at [facility];[address] | K/uL | LAB | | | | [address];[place] | | | | | | [address] | | | | + + + + + + | Absolute | 0.13 (H)Comment: Testing | 0.00 - 0.10 | EXTERNAL | | | Basophils | performed at [facility];[address] | K/uL | LAB | | | | [address];[place] | | | | | | [address] | | | | + + + + + + | RBC | 2+Comment: | | EXTERNAL | | | Morphology | MICRO1+HYPOTesting | | LAB | | | | performed at [facility];[address] | | | | | | [address];[place] | | | | | | [address] | | | | | |Testing performed at [facility];[address];[place] [address] | | | | | | | | | | + + + + + + | Platelet | ADEQUATEComment: Testing | | EXTERNAL | | | Estimate | performed at [facility];[address] | | LAB | | | | [address];[place] | | | | | | [address] | | | | + + + + + + | Na | 142Comment: Testing | 135 - 143 | EXTERNAL | | | | performed at [facility];[address] | mmol/L | LAB | | | | [address];[place] | | | | | | [address] | | | | + + + + + + | K | 3.1 (L)Comment: Testing | 3.5 - 4.9 | EXTERNAL | | | | performed at [facility];[address] | mmol/L | LAB | | | | [address];[place] | | | | | | [address] | | | | + + + + + + | Cl | 108Comment: Testing | 99 - 109 mmol/L | EXTERNAL | | | | performed at [facility];[address] | | LAB | | | | [address];[place] | | | | | | [address] | | | | + + + + + + | CO2 | 28Comment: Testing | 23 - 32 mmol/L | EXTERNAL | | | | performed at [facility];[address] | | LAB | | | | [address];[place] | | | | | | [address] | | | | + + + + + + | Anion Gap | 9Comment: Testing | 5 - 20 mmol/L | EXTERNAL | | | | performed at [facility];[address] | | LAB | | | | [address];[place] | | | | | | [address] | | | | + + + + + + | Glucose, | 209 (H)Comment: Testing | 65 - 99 mg/dL | EXTERNAL | | | Fasting | performed at [facility];[address] | | LAB | | | | [address];[place] | | | | | | [address] | | | | + + + + + + | BUN | 12Comment: Testing | 8 - 25 mg/dL | EXTERNAL | | | | performed at [facility];[address] | | LAB | | | | [address];[place] | | | | | | [address] | | | | + + + + + + | Creatinine | 0.90Comment: Testing | 0.70 - 1.30 | EXTERNAL | | | | performed at [facility];[address] | mg/dL | LAB | | | | [address];[place] | | | | | | [address] | | | | + + + + + + | BUN/Creatin | 13Comment: Testing | | EXTERNAL | | | ine Ratio | performed at [facility];[address] | | LAB | | | | [address];[place] | | | | | | [address] | | | | + + + + + + | Calcium | 8.4 (L)Comment: Testing | 8.5 - 10.5 | EXTERNAL | | | | performed at [facility];[address] | mg/dL | LAB | | | | [address];[place] | | | | | | [address] | | | | + + + + + + | Protein, | 7.5Comment: Testing | 6.3 - 8.2 g/dL | EXTERNAL | | | Total | performed at [facility];[address] | | LAB | | | | [address];[place] | | | | | | [address] | | | | + + + + + + | Albumin | 3.5 (L)Comment: Testing | 3.6 - 5.0 g/dL | EXTERNAL | | | | performed at [facility];[address] | | LAB | | | | [address];[place] | | | | | | [address] | | | | + + + + + + | Globulin | 4.1Comment: Testing | 1.3 - 4.9 g/dL | EXTERNAL | | | | performed at [facility];[address] | | LAB | | | | [address];[place] | | | | | | [address] | | | | + + + + + + | A/G Ratio | 0.8 (L)Comment: Testing | 1.0 - 2.4 | EXTERNAL | | | | performed at [facility];[address] | | LAB | | | | [address];[place] | | | | | | [address] | | | | + + + + + + | Bilirubin | 0.3Comment: Testing | 0.1 - 1.5 mg/dL | EXTERNAL | | | Total | performed at [facility];[address] | | LAB | | | | [address];[place] | | | | | | [address] | | | | + + + + + + | ALP, | 100Comment: Testing | 35 - 115 U/L | EXTERNAL | | | External | performed at [facility];[address] | | LAB | | | | [address];[place] | | | | | | [address] | | | | + + + + + + | AST | 15Comment: Testing | 10 - 45 U/L | EXTERNAL | | | | performed at [facility];[address] | | LAB | | | | [address];[place] | | | | | | [address] | | | | + + + + + + | ALT | 19Comment: Testing | 10 - 65 U/L | EXTERNAL | | | | performed at [facility];[address] | | LAB | | | | [address];[place] | | | | | | [address] | | | | + + + [...] | | | | | | at [facility];[address] | | | | | | [place] [address] | | | | + + + + + + | CK, Total | 138Comment: Testing | 55 - 400 U/L | EXTERNAL | | | | performed at [facility];[address] | | LAB | | | | [address] [place] | | | | | | [address] | | | | + + + [...] [place] | | | | | | [address] | | | | + + + + + + | aPTT, | 26Comment: Testing | 23 - 32 seconds | EXTERNAL | | | Patient | performed at [facility];[address] | | LAB | | | | [address];[place] | | | | | | [address] | | | | + + + + + + | CK-MB | 3.8 (H)Comment: Testing | 0.5 - 3.6 ng/mL | EXTERNAL | | | | performed at [facility];[address] | | LAB | | | | [address];[place] | | | | | | [address] | | | | + + + + + + | CK-MB Index | 2.8Comment: CK INDEX | | EXTERNAL | | [...] + +---------+ + + ECG 12 lead (11/22/2014 11:35 PM PDT) + + + + + [...] of | | | | | | 16-SEP-2014 | | | | | | 00:03,Nonspecific T wave | | | | | | abnormality now evident | | | | | | in Inferior leadsThis | | | | | | [...] (500), | | | | | | technical editor Nola Avila | | | | | | (15) on 11/23/2014 | | | | | | 7:36:25 AM | | | | + + + + + + + + | Specimen | + + | | + + + + + | Narrative | Performed At | + + + | [facility]ically [facility] Epic [facility] | EXTERNAL LAB | + + + + +---------+ + + | Performing | Address | City/State/Zipcode | Phone Number | | Organization | | | | + +---------+ + + | EXTERNAL LAB | | | | + +---------+ + + documented in this encounter Visit Diagnoses + + | Diagnosis | + + | Chest wall pain Painful respiration | + + | Nausea Nausea alone | + + documented in this encounter
--- OUTSIDE RECORDS SUMMARY | ~2019-09-09 | XMS | Encounter Summary ---
Demographics + + + | Address | [address] | | | [place] [address] | + + + | Home Phone | | + + + | Preferred Language | Unknown | + + + | Marital Status | | + + + | Nondenominational Affiliation | 1027 | + + + | Race | Unknown | + + + | Ethnic Group | Unknown | + + + Author + + + | Author | [facility] | | | [facility] [place] | + + + | Organization | [facility] | | | [facility] [place] | + + + | Address | Unknown | + + + | Phone | Unavailable | + + + Support + + + + + | Name | Relationship | Address | Phone | + + + + + | Sammi Kohler | E[place] | [place] [address] | | + + + + + Care Team Providers + +------+ + | Care Director Index Name | Role | Phone | + +------+ + PCP | Unavailable | + +------+ + Encounter Details +--------+ + + + + | Date | Type | Department | Care Team | Description | +--------+ + + + + | 02/24/ | Emergency | [facility] | Mary Ramírez, | Left lower quadrant | | 2017 | | [facility] | [facility] [address] | pain; Diarrhea, | | | | [facility] | [place] [address] | unspecified type | | | | [address] | [phone] | | | | | [place] | | | | | | [address] | | | | | | [phone] | | | +--------+ + + + [...] + + + | Blood Pressure | 144/68 | 02/25/2016 5:53 PM | | | | | PST | | + + + + + | Pulse | 60 | 02/25/2016 5:53 PM | | | | | PST | | + + + + + | Temperature | 37 C (98.6 F) | 02/25/2016 5:53 PM | | | | | PST | | + + + + + | Respiratory Rate | 16 | 02/25/2016 5:53 PM | | | | | PST | | + + + + + | Oxygen Saturation | - | - | | + + + + + | Inhaled Oxygen | - | - | | | Concentration | | | | + + + + + | Weight | 105.7 kg (233 lb 0.5 | 02/25/2016 5:53 PM | | | | oz) | PST | | + + + + + | Height | 180.3 cm (5' 11") | 02/25/2016 5:53 PM | | | | | PST | | + + + + + | Body Mass Index | 32.5 | 02/25/2016 5:53 PM | | | | | PST [...] ED Notes Conversion Transaction, Provider Unknown - 02/25/2016 4:35 PM PSTFormatting of this note m ight be different from the original. ED Notes by QUINN Bland at 02/25/16 1635 Author: QUINN Bland Service: Free Standing ED Author Type: Senior Sales Assistant Filed: 02/25/161714 Date of Service: 02/25/161634 Status: Signed Packaging Designer: QUINN Bland (Senior Sales Assistant) Received call from Tari from [facility] regarding Pt's visits. Today is Pt's 29th visit at an ED within a 12 month rolling calender year. Pt has hx of att ention-seeking behavior during his visits to ED. Tari recommends treating Pt and dischar ging as soon as possible, as long as findings are better treated outside the ED. Met with Pt and caregiver Patsy, from [facility]. She states she cares for him three times a week for 3 hrs per day. Patsy states Pt does not have consistent car egivers, can be up to 3 different caregivers at a time. CM inquired how communication is mad e between each caregiver to ensure Pt's needs are continually met. She states they document and send to agency who adds it to his chart. CM discussed UC and [facility] options with both Pt and caregiver Patsy. Explain ed in detail what would constitute a visit to the ED, and provided a "ED vs UC vs PCP" broch ure for their review. No other concerns to be addressed at this time. QUINN Scott 02/25/161714 Mary Ann MD [facility] - 02/25/2016 3:41 PM PSTFormatting of this note might be different from th e original. ED Provider Notes by Xander Ramírez MD at 02/25/16 1541 Author: Xander Ramírez MD Service: (none) Author Type: Physician Filed: 02/25/16 0702 Date of Service: 02/25/16 1541 Status: Signed Packaging Designer: Xander Ramírez MD (Physician) [facility] Department of Emergency Medicine 3:45 PM History of Present Illness Patient Identification Kevyn Guzman is a 60 y.o. male. Patient information was obtained from patient. History/Exam limitations: none. Patient presented to the Emergency Department by: Car Chief Complaint Chief Complaint Patient presents with Diarrhea The patient complains of diarrhea. Onset of symptoms was 2-3 months, with a intermittent co urse since that time. The pt has no h/o diarrhea in the past. Pt's doctor recently lowered h is anxiety medication dose. The patient also complains of sharp pain to his left side abdome n just prior to bowel movement. The pt [facility] and his episodes are becoming more constant. Pt has also had [place] incontinence of bowel which only started in the last few weeks. Pt states the incontinence is in the morning and he usually feels he cannot make it to the bathroom in time. Pt has se en his doctor but they have not taken a stool sample. Pt reports h/o constipation many years ago. Pt denies fever, nausea, vomiting, constipation, blood in stool, or any other sx at th is time. Pt was in [facility] 01/24[facility]16 for similar sx. 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 PCP is Dr. Diego , he has an appointment with them tomorrow. Pt had colonoscopy 4-5 years ago. Past Medical History Diagnosis Date Diabetes [...] pain Stroke (HCC) TIA (transient ischemic attack) alf (current) use of 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 Past Surgical History Procedure Laterality Date Unlisted procedure arthroscopy Knee surgery rt knee, patella Leg surgery LLE Colonoscopy Abdominal surgery Cholecystectomy Upper gastrointestinal endoscopy Skin biopsy Skin lesion excision Left 05/05/2014 Procedure: EXCISION - LESION - FROZEN SECTION; Surgeon: Sy Fierro MD; Location: [facility]; Service: Plastics; Laterality: Left; forearm Hernia repair N/A 07/03/2013 Procedure: LAPAROSCOPIC - HERNIA - INCISIONAL; Surgeon: Jevon Vargas DO; Location: [facility]; Service: General; 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; Colonoscopy N/A 03/04/2013 Procedure: COLONOSCOPY; Surgeon: Howie Gibson MD; Location: [facility]; Service: Gastroe nterology; 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; Esophagogastroduodenoscopy N/A 03/03/2013 Procedure: ESOPHAGOGASTRODUODENOSCOPY; Surgeon: Howie Gibson MD; Location: [facility]OSCOPY; S ervice: Gastroenterology; 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; Skin cancer excision Left 10/10/2012 Procedure: EXCISION - SKIN CANCER; Surgeon: Sy Fierro MD; Location: [facility] ; Service: Plastics; Laterality: Left; upper arm and upper back w/frozen section Cholecystectomy, laparoscopic N/A 09/12/2012 Procedure: LAPAROSCOPIC - CHOLECYSTECTOMY; Surgeon: Jevon Vargas DO; Location: [facility]; Service: General; 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; Prior to Admission medications Medication Sig Start Date End Date Taking? Authorizing Provider Albuterol Sulfate (VENTOLIN HFA IN) Inhale 2 puffs into the lungs as needed. 108 mcg/act Historical Provider Kthxv-A-Ebrploarohbvj (BEANO) TABS Take 150 Units by mouth [...] 100 mg by mouth nightly. Historical Provider tigmeptqc-datlqgeg-ueuljgdfu hydroxide-simethicone Take 40 mLs by mouth daily [...] Lives alone x 1 wk, moved from [facility], , 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 2 falls in the last 6 months. Family History Problem Relation Age of Onset Heart disease Father Heart disease Sister Diabetes type II Sister Heart Problems Brother Review of Systems Constitutional: No fever ENT: No blindness, no rhinitis, no sore throat Cardiovascular: No chest pain Respiratory: No shortness of breath, cough Gastrointestinal: Yes diarrhea, abdominal pain, bowel incontinence No N/V, black or bloody stools Genitourinary: No dysuria, hematuria Musculoskeletal: No acute physical injury. Skin: No laceration or rash Neuro and psych: No head injury, seizure, headache Endocrine/Heme/Lymph: No easy bruising or bleeding. Physical Exam BP 185/85 mmHg | Pulse 67 | Temp(Src) 98.6 F (37 C) (Oral) | Resp 15 | Ht 1.803 m (5' 1 1") | Wt 105.7 kg (233 lb 0.4 oz) | BMI 32.51 kg/m2 | SpO2 95% Vital Sign interpretation: elevated BP, otherwise WNL Pulse Oximetry interpretation: WNL General: Alert, in no apparent distress Eyes: Non-icteric ENT: Normal external exam Neck: Supple Cardiovascular:Warm and well perfused Respiratory: No respiratory distress Abdomen: Focal LLQ tenderness, no rebound, no guarding Rectal: Soft brown stool - no tenderness to prostate. Extremities: BARNARD Back: Normal ROM Skin: Color normal Warm and dry No rash Neuro: Alert, no AMS No gross motor/sensory deficits Medical Decision Making and Emergency Department Course ED Department Course Pt with diarrhea for the last couple of months, though it does not sound profuse. Most conc erning is that he has become incontinent of stool lately and has LLQ pian. It sounds as thou gh he feels he does not have control long enough to get to the bathroom as opposed to unbekn ownst incontinence, however this raises concern for IBB, malignance, diverticulitis, encopre sis, or perhaps GI bleed related. This could also be medication related and if we do not fin d answers today primary should experiment with elimination. I will get imaging, stool studie s, as well as checking basic labs for dehydration or blood loss. Initial BP was elevated tito l recheck this throughout his stay and see how much f this is white coat related. 4:21 PM Review of records pt has a h/o overuse of services, and as this appears to be a chr onic issue I was tempted not to do testing today for chronic diarrhea, but due to his focal abdominal tenderness on exam I do feel a CT is warranted. 4:44 PM Labs resulted: glucose is 261, INR is 1.0, CRP is 0.8 slightly elevated. Pending ur ine and stool. 4:49 PM UA showed 100 glucose but otherwise negative. 5:[address] reviewed: Will check prostate and if negative exam have pt follow up with PCP. 5:40 PM On rectal exam soft light brown stool, no TTP, no abnormality noted of prostate. 5:48 PM Will have pt follow up with PCP tomorrow. Pt was unable to provide us stool but sto ol studies would be worth trying, pt may need referral to GI for colonoscopy. I have instruc tasia the pt to follow up with their pcp for recheck. We have discussed s/s that would necess itate an immediate return visit to the ED. Pt verbalized their understanding of the dischar ge instructions. All questions and concerns address. No decompensation or new symptoms obs erved or reported during visit. Records Reviewed Old medical records. Nursing notes. Laboratory Evaluation Results Procedure Component Value Ref Range Date/Time Urinalysis (reflex to microscopic/reflex to culture) [[id number]] (Abnormal) Collected: 02/25/16 1646 Order Status: Completed Specimen Information: Urine from Urine, Clean Catch Updated: 02/25/16 1659 COLOR UA YELLOW CLARITY CLEAR Specific [place], UA 1.025 1.001 - 1.035 LEUKOCYTE ESTERASE NEGATIVE NEGATIVE NITRITE NEGATIVE NEGATIVE UROBILINOGEN 0.2 <1.1 mg/dL PROTEIN NEGATIVE NEGATIVE mg/dL PH,URINE 5.5 4.6 - 8.0 BLOOD NEGATIVE NEGATIVE KETONES NEGATIVE NEGATIVE mg/dL BILIRUBIN NEGATIVE NEGATIVE GLUCOSE 100 (A) NEGATIVE mg/dL Protime-INR [[id number]] Collected: 02/25/161609 Order Status: Completed Specimen Information: Blood Updated: 02/25/16 1644 INR 1.0 Complete Metabolic Panel [[id number]] (Abnormal) Collected: 02/25/161609 Order Status: Completed Specimen Information: Blood Updated: 02/25/16 1633 SODIUM 139 135 - 145 mmol/L POTASSIUM 3.8 3.5 - 4.9 mmol/L CHLORIDE 101 99 - 109 mmol/L CO2 29 23 - 32 mmol/L ANION GAP AGAP 13 5 - 20 mmol/L GLUCOSE 261 (H) 65 - 99 mg/dL BUN 24 8 - 25 mg/dL CREATININE 1.3 0.70 - 1.30 mg/dL BUN/CREAT 19 CALCIUM 9.6 8.5 - 10.5 mg/dL TOTAL PROTEIN 7.6 6.3 - 8.2 g/dL Albumin 3.5 3.3 - 4.8 g/dL GLOBULIN 4.1 1.3 - 4.9 g/dL A/G 0.9 (L) 1.0 - 2.4 TBIL 0.4 0.1 - 1.5 mg/dL ALK PHOS 75 35 - 115 U/L AST 20 10 - 45 U/L ALT 25 10 - 65 U/L EGFR 60 (L) >60 mL/min/1.73m2 C-Reactive Protein [[id number]] (Abnormal) Collected: 01/19/17 1610 Order Status: Completed Specimen Information: Blood Updated: 02/25/16 1633 CRP 0.8 (H) <0.5 mg/dL CBC w Auto Diff [[id number]] (Abnormal) Collected: 02/25/16 1610 Order Status: Completed Specimen Information: Blood Updated: 02/25/16 1620 WBC 9.81 3.80 - 11.00 K/uL RBC 5.31 4.20 - 5.70 M/uL HGB 14.3 13.2 - 17.0 g/dL HCT 43.9 39.0 - 50.0 % MCV 82.7 80.0 - 100.0 fl MCH 27.0 27.0 - 34.0 pg MCHC 32.7 32.0 - 35.5 g/dL RDW SD 41.6 37 - 53 fl PLT 250 150 - 400 K/uL MPV 7.8 fl DIFF TYPE AUTOMATED NEUTROPHILS 60.60 % LYMPHOCYTES 24.01 % MONOCYTES 9.60 % EOSINOPHILS 4.75 % BASOPHILS 1.04 % NEUTROPHILS ABS 5.94 1.90 - 7.40 K/uL LYMPHOCYTES ABS 2.36 1.00 - 3.90 K/uL MONOCYTES ABS 0.94 (H) 0.00 - 0.80 K/uL EOSINOPHILS ABS 0.47 0.00 - 0.50 K/uL BASOPHILS ABS 0.10 0.00 - 0.10 K/uL I personally reviewed the lab results and they have been posted to the chart. Pertinent po sitive and negative findings have been addressed appropriately. Radiology and EKG Evaluation Imaging Results CT Abdomen & Pelvis with contrast (Final result) Result time: 02/25/16 17:22:54 Final result by Rad Results In Richard (02/25/16 17:22:54) Impression: 1. Would correlate for the possibility of cystitis or prostatitis. The structures are somew hat indistinct about the pelvis, but there is no extrinsic lesion, hernia or adenopathy No abscess or drainable collection 2. Bowel nonobstructed. 3. The 8 x 10 mm low-density finding in the spleen is likely noncontributory, and probably preexistent. Most likely a small hemangioma Narrative: HISTORY:60 years year-old Male with left lower quadrant pain TECHNIQUE: CT through the abdomen and pelvis. Post the uneventful administration of 100cc I sovue 300. Examination performed without enteric contrast. Automatic dose adjustment to mini kahlil patient exposure. Prior study for comparison: None similar, but a chest CT from December 2014 was utilized as thought helpful FINDINGS: Japanese Tutor is notable for prominent body habitus. Dense stool in the nonobstructed bowel. Nonacu te changes to the pelvis, most likely representing old fracture/injuries. Protrusio configur ation of the femoral acetabular joints also. Lung bases demonstrate no infiltrate or effusion. Clear Bones are without aggressive lesion or fracture. Probably old multiple healed injuries abou t the anterior inferior rib margin of both sides. Findings are quite subtle, and stable when compared to the CT from December 2014 Solid organs: Structurally normal liver, adrenals and pancreas. Specifically no intrinsic l esion or abnormal enhancement. Clips in the gallbladder fossa, with some stable ectasia of t he biliary tree at the flo hepatis. Unchanged from the CT from 2014 On image 23 there is a 8 mm low-density finding in the spleen. Going back to the CT of [facility] 2014-this is more conspicuous made not be new given the nonadministration of contrast in t he prior examination Kidneys and urinary system:Enhance normally, without hydronephrosis, stone, or aggressive l esion. Ureters and urinary bladder normal to technique. Cyst arises from the lateral cortex of the right kidney, a nonaggressive 2.5 cm structure on image 42 series 3 No free air or abnormal free fluid collection. No lymphadenopathy by size criteria - with o nly normal appearing lymph nodes in typical distributions. There is some broad protrusion, d iastases the ventral rectus musculature Bowel is not obstructed and there is no dilation or caliber change. The appendix is disting uished reliably from other bowel. No evidence of appendicitis by CT. Lack of enteric contras t is somewhat limiting but there is no dilated bowel, no extraluminal lesion or inflammatory change Pelvis: Wall urinary bladder is slightly indistinct although there is no mass or extralumin al lesion. There is no inguinal hernia. The prostate is slightly indistinct but this is a no nspecific finding, not enlarged. No mass. No adjacent fluid collection. No adenopathy There is calcification about the penile corpora and adjacent vessels - could be associated with diabetes ED Diagnoses Final diagnoses Left lower quadrant pain Diarrhea, unspecified type Disposition: ED Disposition Discharge Condition at discharge: Stable Follow-up Information Follow up With Details Comments Contact Info Jerrell Diego, DO Go in 1 day Go to your appointment tomorrow, discuss stool studies an d possible GI follow up [address] [facility] [address] [facility] in [place] If symptoms worsen [address] [facility] [address] Discharge Medications: Discharge Medication List as of 02/25/2016 5:59 PM Procedures Additional Documentation Procedures Attending Note: Documentation assistance provided by Jessica Patton (Scribe). Information recorded by the scribe has been reviewed and validated by me. Troy laughlin with its contents. Signed by: Kari Leblanc 02/25/2016, 5:49 PM MD Xander Pineda MD 02/25/16 2234 documented in thi s encounter Plan of Treatment +--------+---------+ + + + | Date | Type | Specialty | Care Team | Description | +--------+---------+ + + + | 09/10/ | Office | Geriatric Medicine | Mireya Pack, | | | 2019 | Visit | | [employer] [address] | | | | | | [address] [place], | | | | | | [place] [address] | | | | | | [phone] | | | | | | | | +--------+---------+ + + + | 09/29/ | Office | Urology | Mireya Pack, | | | 2020 | Visit | | [employer] [address] | | | | | | [address] [place], | | | | | | [place] [address] | | | | | | [phone] | | | | | | | | | | | | Toy Wild, DO | | | | | | [address] | | | | | | [place] [address] | | | | | | [phone] | | | | | | | | +--------+---------+ + + + documented as of this encounter Procedures + +--------+ + + + | Procedure Name | Priori | Date/Time | Associated Diagnosis | Comments | | | ty | | | | + +--------+ + + + | CT ABDOMEN PELVIS W | Routin | 02/25/2016 | | Results for this | | CONTRAST | e | 5:10 PM | | procedure are in the | | | | PST | | results section. | + +--------+ + + + | URINALYSIS, REFLEX | Routin | 02/25/2016 | | Results for this | | MICROSCOPIC AND/OR | e | 4:46 PM | | procedure are in the | | CULTURE | | PST | | results section. | + +--------+ + + + | EXTERNAL LAB: CBC | Routin | 02/25/2016 | | Results for this | | | e | 4:10 PM | | procedure are in the | | | | PST | | results section. | + +--------+ + + + | PROTIME INR | Routin | 02/25/2016 | | Results for this | | | e | 4:10 PM | | procedure are in the | | | | PST | | results section. | + +--------+ + + + | C-REACTIVE PROTEIN | Routin | 02/25/2016 | | Results for this | | | e | 4:10 PM | | procedure are in the | | | | PST | | results section. | + +--------+ + + + | COMPREHENSIVE | Routin | 02/25/2016 | | Results for this | | METABOLIC PANEL | e | 4:10 PM | | procedure are in the | | | | PST | | results section. | + +--------+ + + + documented in this encounter Results CT Abdomen Pelvis w Contrast (02/25/2016 5:10 PM PST) + + | Specimen | + + | | + + + + + | Impressions | Performed At | + + + | 1. Would correlate for the possibility of cystitis or | | | prostatitis. The structures are somewhat indistinct about the pelvis, | | | but there is no extrinsic lesion, hernia or adenopathy No abscess | | | or drainable collection 2. Bowel nonobstructed. 3. The 8 x 10 | | | mm low-density finding in the spleen is likely noncontributory, and | | | probably preexistent. Most likely a small hemangioma | | | | | + + + + + + | Narrative | Performed At | + + + | HISTORY:60 years year-old Male with left lower quadrant pain | | | TECHNIQUE: CT through the abdomen and pelvis. Post the uneventful | | | administration of 100cc Isovue 300. Examination performed without | | | enteric contrast. Automatic dose adjustment to minimize patient | | | exposure. Prior study for comparison: None similar, but a chest CT | | | from December 2014 was utilized as thought helpful FINDINGS: | | | Japanese Tutor is notable for prominent body habitus. Dense stool in the | | | nonobstructed bowel. Nonacute changes to the pelvis, most likely | | | representing old fracture/injuries. Protrusio configuration of the | | | femoral acetabular joints also. Lung bases demonstrate no | | | infiltrate or effusion. Clear Bones are without aggressive lesion | | | or fracture. Probably old multiple healed injuries about the anterior | | | inferior rib margin of both sides. Findings are quite subtle, and | | | stable when compared to the CT from December 2014 Solid organs: | | | Structurally normal liver, adrenals and pancreas. Specifically no | | | intrinsic lesion or abnormal enhancement. Clips in the gallbladder | | | fossa, with some stable ectasia of the biliary tree at the flo | | | hepatis. Unchanged from the CT from 2014 On image 23 there is a 8 | | | mm low-density finding in the spleen. Going back to the CT of April | | | 2014-this is more conspicuous made not be new given the | | | nonadministration of contrast in the prior examination Kidneys and | | | urinary system:Enhance normally, without hydronephrosis, stone, or | | | aggressive lesion. Ureters and urinary bladder normal to technique. | | | Cyst arises from the lateral cortex of the right kidney, a | | | nonaggressive 2.5 cm structure on image 42 series 3 No free air | | | or abnormal free fluid collection. No lymphadenopathy by size criteria | | | - with only normal appearing lymph nodes in typical distributions. | | | There is some broad protrusion, diastases the ventral rectus | | | musculature Bowel is not obstructed and there is no dilation or | | | caliber change. The appendix is distinguished reliably from other | | | bowel. No evidence of appendicitis by CT. Lack of enteric contrast is | | | somewhat limiting but there is no dilated bowel, no extraluminal | | | lesion or inflammatory change Pelvis: Wall urinary bladder is | | | slightly indistinct although there is no mass or extraluminal lesion. | | | There is no inguinal hernia. The prostate is slightly indistinct but | | | this is a nonspecific finding, not enlarged. No mass. No adjacent | | | fluid collection. No adenopathy There is calcification about the | | | penile corpora and adjacent vessels - could be associated with | | | diabetes | | + + + + + | Procedure Note | + + | Richard, Rad Conversion - 09/19/2018 4:20 PM PDT HISTORY:60 years year-old Male with | | left lower quadrant pain TECHNIQUE: CT through the abdomen and pelvis. Post the | | uneventful administration of 100cc Isovue 300. Examination performed without enteric | | contrast. Automatic dose adjustment to minimize patient exposure. Prior study for | | comparison: None similar, but a chest CT from December 2014 was utilized as thought | | helpful FINDINGS: Japanese Tutor is notable for prominent body habitus. Dense stool in the | | nonobstructed bowel. Nonacute changes to the pelvis, most likely representing old | | fracture/injuries. Protrusio configuration of the femoral acetabular joints also. Lung | | bases demonstrate no infiltrate or effusion. Clear Bones are without aggressive lesion | | or fracture. Probably old multiple healed injuries about the anterior inferior rib | | margin of both sides. Findings are quite subtle, and stable when compared to the CT from | | December 2014 Solid organs: Structurally normal liver, adrenals and pancreas. | | Specifically no intrinsic lesion or abnormal enhancement. Clips in the gallbladder | | fossa, with some stable ectasia of the biliary tree at the flo hepatis. Unchanged from | | the CT from 2014 On image 23 there is a 8 mm low-density finding in the spleen. Going | | back to the CT of April 2014-this is more conspicuous made not be new given the | | nonadministration of contrast in the prior examination Kidneys and urinary | | system:Enhance normally, without hydronephrosis, stone, or aggressive lesion. Ureters | | and urinary bladder normal to technique. Cyst arises from the lateral cortex of the | | right kidney, a nonaggressive 2.5 cm structure on image 42 series 3 No free air or | | abnormal free fluid collection. No lymphadenopathy by size criteria - with only normal | | appearing lymph nodes in typical distributions. There is some broad protrusion, | | diastases the ventral rectus musculature Bowel is not obstructed and there is no | | dilation or caliber change. The appendix is distinguished reliably from other bowel. No | | evidence of appendicitis by CT. Lack of enteric contrast is somewhat limiting but there | | is no dilated bowel, no extraluminal lesion or inflammatory change Pelvis: Wall urinary | | bladder is slightly indistinct although there is no mass or extraluminal lesion. There | | is no inguinal hernia. The prostate is slightly indistinct but this is a nonspecific | | finding, not enlarged. No mass. No adjacent fluid collection. No adenopathy There is | | calcification about the penile corpora and adjacent vessels - could be associated with | | diabetes IMPRESSION: 1. Would correlate for the possibility of cystitis or prostatitis. | | The structures are somewhat indistinct about the pelvis, but there is no extrinsic | | lesion, hernia or adenopathy No abscess or drainable collection 2. Bowel nonobstructed. | | 3. The 8 x 10 mm low-density finding in the spleen is likely noncontributory, and | | probably preexistent. Most likely a small hemangioma | | | |No abscess or drainable collection | | | |2. Bowel nonobstructed. | | | |3. The 8 x 10 mm low-density finding in the spleen is likely noncontributory, and probably preexistent. Most likely a small hemangioma | | | | | + + Urinalysis, Reflex Microscopic and/or Culture (02/25/2016 4:46 PM PST) + + + + + + | Component | Value | Ref Range | Performed | Pathologist | | | | | At | Signature | + + + + + + | Color | YELLOWComment: Testing | | EXTERNAL | | | | performed at [facility], [address] | | LAB | | | | [address], | | | | | | [place] [address] | | | | + + + + + + | Clarity, | CLEARComment: Testing | | EXTERNAL | | | Urine | performed at [facility], [address] | | LAB | | | | [address], | | | | | | [place] [address] | | | | + + + + + + | Specific | 1.025Comment: Testing | 1.001 - 1.035 | EXTERNAL | | | [place], | performed at [facility], [address] | | LAB | | | Urine | [address], | | | | | | [place] [address] | | | | + + + + + + | Leukocyte | NEGATIVEComment: Testing | | EXTERNAL | | | Esterase, | performed at [facility], [address] | | LAB | | | Urine | [address], | | | | | | [place] [address] | | | | + + + + + + | Nitrite, | NEGATIVEComment: Testing | | EXTERNAL | | | Urine | performed at [facility], [address] | | LAB | | | | [address], | | | | | | [place] [address] | | | | + + + + + + | Urobilinoge | 0.2Comment: Testing | mg/dL | EXTERNAL | | | n, Urine | performed at [facility], [address] | | LAB | | | | [address], | | | | | | [place] [address] | | | | + + + + + + | Protein, | NEGATIVEComment: Testing | mg/dL | EXTERNAL | | | Urine | performed at [facility], [address] | | LAB | | | | [address], | | | | | | [place] [address] | | | | + + + + + + | pH, Urine | 5.5Comment: Testing | 4.6 - 8.0 | EXTERNAL | | | | performed at [facility], [address] | | LAB | | | | [address], | | | | | | [place] [address] | | | | + + + + + + | Blood, | NEGATIVEComment: Testing | | EXTERNAL | | | Urine | performed at [facility], [address] | | LAB | | | | [address], | | | | | | [place] [address] | | | | + + + + + + | Ketones | NEGATIVEComment: Testing | mg/dL | EXTERNAL | | | | performed at [facility], [address] | | LAB | | | | [address], | | | | | | [place] [address] | | | | + + + + + + | Bilirubin, | NEGATIVEComment: Testing | | EXTERNAL | | | Urine | performed at [facility], [address] | | LAB | | | | [address], | | | | | | [place] [address] | | | | + + + + + + | Glucose, | 100 (A)Comment: Testing | mg/dL | EXTERNAL | | | Urine | performed at [facility], [address] | | LAB | | | | [address], | | | | | | [place] [address] | | | | + + + + + + + + | Specimen | + + | Urine specimen | | (specimen) | + + + +---------+ + + | Performing | Address | City/State/Zipcode | Phone Number | | Organization | | | | + +---------+ + + | EXTERNAL LAB | | | | + +---------+ + + Protime INR (02/25/2016 4:10 PM PST) + + + + + [...] | | | | | performed at [facility], [address] | | | | | | [address], | | | | | | [place] [address] | | | | + + + [...] + +---------+ + + External Lab: CBC (02/25/2016 4:10 PM PST) + + + + + + | Component | Value | Ref Range | Performed | Pathologist | | | | | At | Signature | + + + + + + | WBC | 9.81Comment: Testing | 3.80 - 11.00 | EXTERNAL | | | | performed at [facility], [address] | K/uL | LAB | | | | [address], | | | | | | [place] [address] | | | | + + + + + + | Non- | 5.31Comment: Testing | 4.20 - 5.70 | EXTERNAL | | | Red Blood | performed at [facility], [address] | M/uL | LAB | | | Cells | [address], | | | | | Counted | [place] [address] | | | | + + + + + + | Hemoglobin | 14.3Comment: Testing | 13.2 - 17.0 | EXTERNAL | | | | performed at [facility], [address] | g/dL | LAB | | | | [address], | | | | | | [place] [address] | | | | + + + + + + | Hematocrit, | 43.9Comment: Testing | 39.0 - 50.0 % | EXTERNAL | | | POC | performed at [facility], [address] | | LAB | | | | [address], | | | | | | [place] [address] | | | | + + + + + + | MCV | 82.7Comment: Testing | 80.0 - 100.0 fl | EXTERNAL | | | | performed at [facility], [address] | | LAB | | | | [address], | | | | | | [place] [address] | | | | + + + + + + | MCH | 27.0Comment: Testing | 27.0 - 34.0 pg | EXTERNAL | | | | performed at [facility], [address] | | LAB | | | | [address], | | | | | | [place] [address] | | | | + + + + + + | MCHC | 32.7Comment: Testing | 32.0 - 35.5 | EXTERNAL | | | | performed at [facility], [address] | g/dL | LAB | | | | [address], | | | | | | [place] [address] | | | | + + + + + + | RDW-CV | 41.6Comment: Testing | 37 - 53 fl | EXTERNAL | | | | performed at [facility], [address] | | LAB | | | | [address], | | | | | | [place] [address] | | | | + + + + + + | Platelet | 250Comment: Testing | 150 - 400 K/uL | EXTERNAL | | | Count | performed at [facility], [address] | | LAB | | | Plasma | [address], | | | | | | [place] [address] | | | | + + + + + + | MPV | 7.8Comment: Testing | fl | EXTERNAL | | | | performed at [facility], [address] | | LAB | | | | [address], | | | | | | [place] [address] | | | | + + + + + + | Differentia | AUTOMATEDComment: | | EXTERNAL | | | l Type | Testing performed at | | LAB | | | | [facility], [address], | | | | | | [place] [address] | | | | + + + + + + | % Segmented | 60.60Comment: Testing | % | EXTERNAL | | | | performed at [facility], [address] | | LAB | | | Neutrophils | [address], | | | | | | [place] [address] | | | | + + + + + + | % | 24.01Comment: Testing | % | EXTERNAL | | | Lymphocytes | performed at [facility], [address] | | LAB | | | | [address], | | | | | | [place] [address] | | | | + + + + + + | % Monocytes | 9.60Comment: Testing | % | EXTERNAL | | | | performed at [facility], [address] | | LAB | | | | [address], | | | | | | [place] [address] | | | | + + + + + + | % | 4.75Comment: Testing | % | EXTERNAL | | | Eosinophils | performed at [facility], [address] | | LAB | | | | [address], | | | | | | [place] [address] | | | | + + + + + + | % Basophils | 1.04Comment: Testing | % | EXTERNAL | | | | performed at [facility], [address] | | LAB | | | | [address], | | | | | | [place] [address] | | | | + + + + + + | Absolute | 5.94Comment: Testing | 1.90 - 7.40 | EXTERNAL | | | Segmented | performed at [facility], [address] | K/uL | LAB | | | Neutrophils | [address], | | | | | | [place] [address] | | | | + + + + + + | Absolute | 2.36Comment: Testing | 1.00 - 3.90 | EXTERNAL | | | Lymphocytes | performed at [facility], [address] | K/uL | LAB | | | | [address], | | | | | | [place] [address] | | | | + + + + + + | Absolute | 0.94 (H)Comment: Testing | 0.00 - 0.80 | EXTERNAL | | | Monocytes | performed at [facility], [address] | K/uL | LAB | | | | [address], | | | | | | [place] [address] | | | | + + + + + + | Absolute | 0.47Comment: Testing | 0.00 - 0.50 | EXTERNAL | | | Eosinophils | performed at [facility], [address] | K/uL | LAB | | | | [address], | | | | | | [place] [address] | | | | + + + + + + | Absolute | 0.10Comment: Testing | 0.00 - 0.10 | EXTERNAL | | | Basophils | performed at [facility], [address] | K/uL | LAB | | | | [address], | | | | | | [place] [address] | | | | + + + + + + + + | Specimen | + + | Blood specimen | | (specimen) | + + + +---------+ + + | Performing | Address | City/State/Zipcode | Phone Number | | Organization | | | | + +---------+ + + | EXTERNAL LAB | | | | + +---------+ + + C-Reactive Protein (02/25/2016 4:10 PM PST) + + + + + + | Component | Value | Ref Range | Performed | Pathologist | | | | | At | Signature | + + + + + + | CRP | 0.8 (H)Comment: Testing | mg/dL | EXTERNAL | | | | performed at [facility], [address] | | LAB | | | | [address], | | | | | | [place] [address] | | | | + + + [...] + +---------+ + + Comprehensive Metabolic Panel (02/25/2016 4:10 PM PST) + + + + + + | Component | Value | Ref Range | Performed | Pathologist | | | | | At | Signature | + + + + + + | Na | 139Comment: Testing | 135 - 145 | EXTERNAL | | | | performed at [facility], [address] | mmol/L | LAB | | | | [address], | | | | | | [place] [address] | | | | + + + + + + | K | 3.8Comment: Testing | 3.5 - 4.9 | EXTERNAL | | | | performed at [facility], [address] | mmol/L | LAB | | | | [address], | | | | | | [place] [address] | | | | + + + + + + | Cl | 101Comment: Testing | 99 - 109 mmol/L | EXTERNAL | | | | performed at [facility], [address] | | LAB | | | | [address], | | | | | | [place] [address] | | | | + + + + + + | CO2 | 29Comment: Testing | 23 - 32 mmol/L | EXTERNAL | | | | performed at [facility], [address] | | LAB | | | | [address], | | | | | | [place] [address] | | | | + + + + + + | Anion Gap | 13Comment: Testing | 5 - 20 mmol/L | EXTERNAL | | | | performed at [facility], [address] | | LAB | | | | [address], | | | | | | [place] [address] | | | | + + + + + + | Glucose, | 261 (H)Comment: Testing | 65 - 99 mg/dL | EXTERNAL | | | Fasting | performed at [facility], [address] | | LAB | | | | [address], | | | | | | [place] [address] | | | | + + + + + + | BUN | 24Comment: Testing | 8 - 25 mg/dL | EXTERNAL | | | | performed at [facility], [address] | | LAB | | | | [address], | | | | | | [place] [address] | | | | + + + + + + | Creatinine | 1.3Comment: Testing | 0.70 - 1.30 | EXTERNAL | | | | performed at [facility], [address] | mg/dL | LAB | | | | [address], | | | | | | [place] [address] | | | | + + + + + + | BUN/Creatin | 19Comment: Testing | | EXTERNAL | | | ine Ratio | performed at [facility], [address] | | LAB | | | | [address], | | | | | | [place] [address] | | | | + + + + + + | Calcium | 9.6Comment: Testing | 8.5 - 10.5 | EXTERNAL | | | | performed at [facility], [address] | mg/dL | LAB | | | | [address], | | | | | | [place] [address] | | | | + + + + + + | Protein, | 7.6Comment: Testing | 6.3 - 8.2 g/dL | EXTERNAL | | | Total | performed at [facility], [address] | | LAB | | | | [address], | | | | | | [place] [address] | | | | + + + + + + | Albumin | 3.5Comment: Testing | 3.3 - 4.8 g/dL | EXTERNAL | | | | performed at [facility], [address] | | LAB | | | | [address], | | | | | | [place] [address] | | | | + + + + + + | Globulin | 4.1Comment: Testing | 1.3 - 4.9 g/dL | EXTERNAL | | | | performed at [facility], [address] | | LAB | | | | [address], | | | | | | [place] [address] | | | | + + + + + + | A/G Ratio | 0.9 (L)Comment: Testing | 1.0 - 2.4 | EXTERNAL | | | | performed at [facility], [address] | | LAB | | | | [address], | | | | | | [place] [address] | | | | + + + + + + | Bilirubin | 0.4Comment: Testing | 0.1 - 1.5 mg/dL | EXTERNAL | | | Total | performed at [facility], [address] | | LAB | | | | [address], [place], | | | | | | [place] [address] | | | | + + + + + + | ALP, | 75Comment: Testing | 35 - 115 U/L | EXTERNAL | | | External | performed at [facility], [address] | | LAB | | | | [address], | | | | | | [place] [address] | | | | + + + + + + | AST | 20Comment: Testing | 10 - 45 U/L | EXTERNAL | | | | performed at [facility], [address] | | LAB | | | | [address], | | | | | | [place] [address] | | | | + + + + + + | ALT | 25Comment: Testing | 10 - 65 U/L | EXTERNAL | | | | performed at [facility], [address] | | LAB | | | | [address], | | | | | | [place] [address] | | | | + + + + + + | Estimated | 60 (L)Comment: GFR <60: | mL/min/1.73m2 | EXTERNAL [...] | | | | | | at [facility], [address] | | | | | [address] [place] | | | | | | [id number] [...] | Diagnosis | + + | Left lower quadrant pain Abdominal pain, left lower quadrant | + + | Diarrhea, unspecified type | + + documented in this encounter
--- OUTSIDE RECORDS SUMMARY | ~2019-09-09 | XMS | Encounter Summary ---
Demographics + + + | Address | [address] | | | [place] [address] | + + + | Home Phone | | + + + | Preferred Language | Unknown | + + + | Marital Status | | + + + | Temple Affiliation | 1027 | + + + | Race | Unknown | + + + | Ethnic Group | Unknown | + + + Author + + + | Author | [facility] | | | and [place] | + + + | Organization | [facility] | | | and [place] | + + + | Address | Unknown | + + + | Phone | Unavailable | + + + Support + + + + + | Name | Relationship | Address | Phone | + + + + + | Sammi Kohler | ECON | [place] [address] | | + + + + + Care Team Providers + +------+ + | Care Sports Book Writer Name | Role | Phone | + +------+ + PCP | Unavailable | + +------+ + Encounter Details +--------+ + + + + | Date | Type | Department | Care Team | Description | +--------+ + + + + | 06/25/ | Emergency | [facility] | Jose Wagner | Francesca headedsandra; | | 2017 | | [facility]ENTER | DO [address] | Generalized | | | | EMERGENCY CENTER | [address] | weakness; | | | | [address] | [place], [place] | Hyperglycemia; | | | | [place], [place] | [address] | Chronic kidney | | | | [address] | [phone] | disease, unspecified | | | | [phone] | | stage; Elevated | | | | | | blood pressure | +--------+ + + + + Social [...] + + + | Blood Pressure | 160/72 | 06/25/2016 4:48 PM | | | | | PDT | | + + + + + | Pulse | 60 | 06/25/2016 4:48 PM | | | | | PDT | | + + + + + | Temperature | 37.1 C (98.8 F) | 06/25/2016 4:48 PM | | | | | PDT | | + + + + + | Respiratory Rate | 16 | 06/25/2016 4:48 PM | | | | | PDT | | + + + + + | Oxygen Saturation | - | - | | + + + + + | Inhaled Oxygen | - | - | | | Concentration | | | | + + + + + | Weight | 103.8 kg (228 lb | 06/25/2016 4:48 PM | | | | 13.4 oz) | PDT | | + + + + + | Height | - | - | | + + + + + | Body Mass Index | 31.92 | 06/17/2016 7:42 AM | | | [...] ED Notes Conversion Transaction, Provider Unknown - 06/25/2016 5:10 PM PDTFormatting of this note m ight be different from the original. ED Notes by Samia Roque RN at 06/25/16 1612 Author: Samia Roque RN Service: (none) Author Type: Registered Nurse Filed: 06/25/161709 Date of Service: 06/25/161709 Status: Signed Salvage Engineer: Samia Roque RN (Registered Nurse) Discharge instructions given Samia Roque RN 06/25/161709 oung, Jose Townsend DO - 06/25/2016 2:54 PM PDT ED Provider Notes by Jose Wagner DO at 06/25/16 0538 Author: Jose Wagner DO Service: Emergency Department Author Type: Physician Filed: 06/26/162006 Date of Service: 06/25/161453 Status: Signed Salvage Engineer: Jose Wagner DO (Physician) [facility] Department of Emergency Medicine 2:54 PM History of Present Illness Patient Identification Norah Gr is a 60 y.o. male. Patient information was obtained from patient. History/Exam limitations: none. Patient presented to the Emergency Department by: Car History of Presenting Illness The patient is a 60 y.o. male presenting with Chief Complaint Patient presents with Dizziness Sleeping Problem "I sleep all the time" Location- general Onset- 4 days ago Duration- worsening Severity/Character- moderate Worse with- nothing Better with- nothing Radiation- none Denies- appetite changes, syncope, bowel or bladder complaints, fever, recent illness, or a ny other sx at this time Admits- dizziness, feeling tired, weakness Context- Pt was seen in the ED last week for a CVA and was discharged on 06/17. He states he has been increasingly dizzy and wants to sleep all the time over the last 4 days. Pt does l aissatou by himself at home, and denies any others sx at this time. Pt states his coumadin dose w as increased once he was discharged, and he states his concern that this may be what is josselin ng him dizzy. PCP: JERRELL GUTIÉRREZ Past Medical History Diagnosis Date Diabetes mellitus type II Atrial fibrillation (HCC) Hypertension Hyperlipidemia Anxiety Depression Renal failure ARF (acute renal failure) ([facility]) 03/02/2013 COPD (chronic obstructive pulmonary disease) ([facility]) 03/02/2013 hypoxemia on 2 lts [...] pain Stroke (HCC) TIA (transient ischemic attack) detention (current) use of 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 Past Surgical History Procedure Laterality Date Unlisted procedure arthroscopy Knee surgery rt knee, patella Leg surgery LLE Colonoscopy Abdominal surgery Cholecystectomy Upper gastrointestinal endoscopy Skin biopsy Skin lesion excision Left 05/05/2014 Procedure: EXCISION - LESION - FROZEN SECTION; Surgeon: Sy Fierro MD; Location: [facility] OR; Service: Plastics; Laterality: Left; forearm Hernia repair N/A 07/03/2013 Procedure: LAPAROSCOPIC - HERNIA - INCISIONAL; Surgeon: Jevon Vargas DO; Location: [facility] OR; Service: General; 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; Colonoscopy N/A 03/04/2013 Procedure: COLONOSCOPY; Surgeon: Howie Gibson MD; Location: [facility] ENDOSCOPY; Service: Gastroe nterology; 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; Esophagogastroduodenoscopy N/A 03/03/2013 Procedure: ESOPHAGOGASTRODUODENOSCOPY; Surgeon: Howie Gibson MD; Location: [facility] ENDOSCOPY; S ervice: Gastroenterology; 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; Skin cancer excision Left 10/10/2012 Procedure: EXCISION - SKIN CANCER; Surgeon: Sy Fierro MD; Location: [facility] ; Service: Plastics; Laterality: Left; upper arm and upper back w/frozen section Cholecystectomy, laparoscopic N/A 09/12/2012 Procedure: LAPAROSCOPIC - CHOLECYSTECTOMY; Surgeon: Jevon Vargas DO; Location: [facility] OR; Service: General; 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; Prior to Admission medications Medication Sig Start Date End Date Taking? Authorizing Provider Albuterol Sulfate (VENTOLIN HFA IN) Inhale 2 puffs into the lungs as needed. 108 mcg/act Historical Provider Yleuc-A-Izfidhqwuecvs (BEANO) TABS Take 150 Units by mouth [...] 100 mg by mouth nightly. Historical Provider ochtqvydq-bhcpmjiu-bvrayfwdq hydroxide-simethicone Take 40 mLs by mouth daily as needed. Historical Provider lisinopril (ZESTRIL) 40 MG tablet Take 2 tablets by mouth every evening. 06/17/16 07/17/16 Ginny Blanchard MD Mometasone Furo-Formoterol Fum (DULERA) 100-5 [...] has been addressed. Review of Systems Constitutional: Positive for weakness, feeling tired Negative for fever, chills Eyes: Negative for vision changes Nose: Negative for congestion, nosebleeds Throat: Negative for sore throat CV/Resp: Negative for chest pain, zntoisxdh-zx-asmuwt, cough GI: Negative for abdominal pain, nausea, vomiting, or diarrhea : Negative for urinary problems Musculoskeletal: Negative for back pain, joint pain Skin: Negative for rash Neuro/Psych: Positive for dizziness Negative for headache Endo/heme/Lymph: Negative for swollen lymph nodes, easy bruising Physical Exam BP 141/68 mmHg | Pulse 72 | Temp(Src) 98.8 F (37.1 C) (Temporal) | Resp 20 | Wt 103.8 k g (228 lb 13.4 oz) | SpO2 94% Vital signs interpretation: elevated blood pressure, otherwise normal Pulse Oximetry interpretation: Normal General: [...] No guarding or rebound No peritoneal sign Genitourinary: Deferred Rectal exam: Deferred Back: Normal inspection Extremities: No swelling or redness Skin: Color normal Warm and dry No rash Neuro: Alert, no AMS CN II-XII intact Equal strength and sensation in all extremities No gross motor/sensory deficits Moving all extremities Medical Decision Making and Emergency Department Course ED Department Course 60 y.o. male presents to the ED with a chief complaints of generalized weakness. He was re cently admitted for CVA. Will get labs, EKG, CT Head, and reevaluate the patient. Review of vitals BP 141/68 mmHg | Pulse 72 | Temp(Src) 98.8 F (37.1 C) (Temporal) | Res p 20 | Wt 103.8 kg (228 lb 13.4 oz) | SpO2 94% Laboratory evaluation reveals hyperglycemia, renal insufficiency consistent with his histor y of renal failure, and he does not appear to be compliant with taking his coumadin as his I NR is at 1.1 CXR reviewed, and is without acute findings Patient reevaluation. Patient is stable and feeling better at this time awaiting CT read. Patient reevaluation. Patient is stable and feeling better at this time. I discussed all ED results and my clinical impression with the patient. Patient is ready for discharge after w orkup. I advised patient to follow up with a PCP and we discussed the emergent signs and sym ptoms that would necessitate a return to ED. The patient understands and agrees with the alen n. All questions and concerns addressed. Will discharge home. DDx: I considered infectious causes, endocrinologic causes, seizures, hypoglycemia, overdos e, uremia, toxins, trauma, infection, psychosis, sepsis, CVA, intracranial hemorrhage, myopa thy, peripheral nerve/muscle disease, and chronic decline as causes for pt's weakness. Pt w ith increased weakness stating he is sleeping all the time, recently admitted for stroke, ho yara has no stroke symptoms here, ct and labs ok, I explained all tests and results to roberto ent, all of the patient's questions and concerns were answered. Pt is agreeable to d/c, and can f/u as an outpt. Filed Vitals: 06/25/16 1448 06/25/16 1542 06/25/16 1648 BP: 141/68 142/70 160/72 Pulse: 72 60 60 Temp: 98.8 F (37.1 C) TempSrc: Temporal Resp: Weight: 103.8 kg (228 lb 13.4 oz) SpO2: 94% 94% 95% Patient has elevated blood pressure, in accordance with measure 317 I have advised patient to have recheck of BP with their pcp, patient agrees. Records Reviewed Old medical records. Nursing notes. Laboratory Evaluation Results Procedure Component Value Ref Range Date/Time TSH [[id number]] Collected: 06/25/161507 Order Status: Completed Specimen Information: Blood Updated: 06/25/161957 TSH 3.60 0.45 - 5.10 uIU/mL Cardiac Panel [[id number]] (Abnormal) Collected: 06/25/161507 Order Status: Completed Updated: 05/20/17 1539 WBC 9.00 3.80 - 11.00 K/uL RBC 4.74 4.20 - 5.70 M/uL HGB 13.4 13.2 - 17.0 g/dL HCT 39.5 39.0 - 50.0 % MCV 83.3 80.0 - 100.0 fl MCH 28.3 27.0 - 34.0 pg MCHC 34.0 32.0 - 35.5 g/dL RDW SD 43.8 37 - 53 fl PLT 231 150 - 400 K/uL MPV 8.0 fl DIFF TYPE AUTOMATED NEUTROPHILS 63.01 % LYMPHOCYTES 24.97 % MONOCYTES 8.78 % EOSINOPHILS 2.27 % BASOPHILS 0.97 % NEUTROPHILS ABS 5.67 1.90 - 7.40 K/uL LYMPHOCYTES ABS 2.25 1.00 - 3.90 K/uL MONOCYTES ABS 0.79 0.00 - 0.80 K/uL EOSINOPHILS ABS 0.20 0.00 - 0.50 K/uL BASOPHILS ABS 0.09 0.00 - 0.10 K/uL SODIUM 140 135 - 145 mmol/L POTASSIUM 3.9 3.5 - 4.9 mmol/L CHLORIDE 104 99 - 109 mmol/L CO2 29 23 - 32 mmol/L ANION GAP AGAP 10 5 - 20 mmol/L GLUCOSE 177 (H) 65 - 99 mg/dL BUN 36 (H) 8 - 25 mg/dL CREATININE 1.5 (H) 0.70 - 1.30 mg/dL BUN/CREAT 24 CALCIUM 9.7 8.5 - 10.5 mg/dL TOTAL PROTEIN 7.4 6.3 - 8.2 g/dL Albumin 3.4 3.3 - 4.8 g/dL GLOBULIN 4.0 1.3 - 4.9 g/dL A/G 0.9 (L) 1.0 - 2.4 TBIL 0.4 0.1 - 1.5 mg/dL ALK PHOS 57 35 - 115 U/L AST 18 10 - 45 U/L ALT 19 10 - 65 U/L EGFR 51 (L) >60 mL/min/1.73m2 CPK 93 55 - 400 U/L INR 1.1 APTT 25 23 - 32 seconds MMB 2.2 0.5 - 3.6 ng/mL CK-MB Index 2.4 Urinalysis (reflex to microscopic/reflex to culture) [[id number]] (Abnormal) Collected: 06/25/16 5376 Order Status: Completed Specimen Information: Urine, Clean Catch Updated: 06/25/16 15 38 COLOR UA YELLOW CLARITY CLEAR Specific [place], UA 1.016 1.002 - 1.030 LEUKOCYTE ESTERASE TRACE (A) NEGATIVE NITRITE NEGATIVE NEGATIVE UROBILINOGEN NORMAL <1.1 mg/dL PROTEIN NEGATIVE NEGATIVE mg/dL PH,URINE 7.0 5.0 - 8.0 BLOOD NEGATIVE NEGATIVE KETONES NEGATIVE NEGATIVE mg/dL BILIRUBIN NEGATIVE NEGATIVE GLUCOSE NEGATIVE NEGATIVE mg/dL WBC 6-10 0 - 5 /hpf RBC 0-2 0 - 2 /hpf BACTERIA NONE SEEN NONE SEEN EPITHELIAL 6-10 /lpf I personally reviewed the lab results and they have been posted to the chart. Pertinent po sitive and negative findings have been addressed appropriately and I have discussed any abno rmal labs with the patient. Radiology and EKG Evaluation Imaging Results CT Head Non-Con (Final result) Result time: 06/25/16 15:50:02 Final result by Rad Results In Richard (06/25/16 15:50:02) Impression: 1. No acute intracranial findings. 2. Left frontal sinusitis. Narrative: NORAH GR CT HEAD WO CONTRAST 06/25/2016 3:28 PM HISTORY: Weakness and presumed concern for a stroke. TECHNIQUE: 5 mm axial sections were obtained through the head without IV contrast. Dose reduction tech nique was performed using automated exposure control or adjustment of the mA and/or kV accor ding to patient size. FINDINGS: Compared with 06/16/2016. No midline shift. Ventricles are normal in size. No hydrocephalus. There is no evidence of intracranial mass, hemorrhage, or infarction. The left frontal sinu s is opacified, suggesting sinusitis. XR Chest PA and Lateral (Final result) Result time: 06/25/16 15:42:29 Final result by Rad Results In Richard (06/25/16 15:42:29) Impression: 1. No acute cardiopulmonary process. Narrative: NORAH GR 1955 60 years Male XR CHEST 2 VIEW FRONTAL AND LATERAL 06/25/2016 3:26 PM INDICATION: Weakness. COMPARISON: Chest radiograph, most recent dated February 25, 2015. TECHNIQUE: Two view chest, PA and lateral views FINDINGS: The cardiomediastinal contours are normal. There is no mediastinal widening or s hift. No pneumothorax or effusion. Minimal chronic opacity at the left lung base is unchang ed, likely scarring. Otherwise the lungs are clear.. Osseous structures are normal. ====EKG Interpretation==== Time: 1505 Rate: 59 Rhythm: sinus bradycardia Elfrida: normal Intervals: normal ST: normal Compared to 06/16/16, and there is no change Overall: Nonspecific EKG Interpreted by Jose Wagner D.O. Rhythm strip analysis: Sinus bradycardia ED Diagnoses Final diagnoses Light headedness Generalized weakness Hyperglycemia Chronic kidney disease, unspecified stage Elevated blood pressure Disposition: ED Disposition Discharge Condition at discharge: Stable Follow-up Information Follow up With Details Comments Contact Info Jerrell Gutiérrez DO In 1 week As needed [address] [place] [address] [employer] [address] [facility] Emergency Department If symptoms worsen [address] [facility] [address] Discharge Medications: Discharge Medication List as of 06/25/2016 5:01 PM Procedures Additional Documentation Procedures Attending Provider Note: I, Jose Wagner DO personally performed the services described i n this documentation, as scribed by Tara Miller in my presence, and it is both accurate an d complete. Chart Reviewed and Completed: 06/26/2016 8:05 PM Scribe: I Kari Zheng, scribing for and in the presence of Jose Wagner DO. Signed by: Kari Zheng 06/25/2016 8:05 PM Jose Wagner DO 06/26/162006 documented in t his encounter Plan of Treatment +--------+---------+ + + + | Date | Type | Specialty | Care Team | Description | +--------+---------+ + + + | 09/10/ | Office | Geriatric Medicine | Mireya Pack, | | | 2019 | Visit | | DELIMBER OPERATOR [address] | | | | | | [address] [place], | | | | | | [place] [address] | | | | | | [phone] | | | | | | | | +--------+---------+ + + + | 09/29/ | Office | Urology | Mireya Pack, | | | 2019 | Visit | | DELIMBER OPERATOR [address] | | | | | | [address] [place], | | | | | | [place] [address] | | | | | | [phone] | | | | | | | | | | | | [place], | | | | | | [address] | | | | | | [place] [address] | | | | | | [phone] | | | | | | | | +--------+---------+ + + + documented as of this encounter Procedures + +--------+ + + + | Procedure Name | Priori | Date/Time | Associated Diagnosis | Comments | | | ty | | | | + +--------+ + + + | CT HEAD WO CONTRAST | Routin | 06/25/2016 | | Results for this | | | e | 3:38 PM | | procedure are in the | | | | PDT | | results section. | + +--------+ + + + | XR CHEST 2 VIEWS | Routin | 06/25/2016 | | Results for this | | | e | 3:26 PM | | procedure are in the | | | | PDT | | results section. | + +--------+ + + + | URINALYSIS, REFLEX | Routin | 06/25/2016 | | Results for this | | MICROSCOPIC AND/OR | e | 3:16 PM | | procedure are in the | | CULTURE | | PDT | | results section. | + +--------+ + + + | HISTORICAL LAB PANEL | Routin | 06/25/2016 | | Results for this | | RESULT | e | 3:08 PM | | procedure are in the | | | | PDT | | results section. | + +--------+ + + + | TSH | Routin | 06/25/2016 | | Results for this | | | e | 3:08 PM | | procedure are in the | | | | PDT | | results section. | + +--------+ + + + | ECG 12 LEAD | Routin | 06/25/2016 | | Results for this | | | e | 3:05 PM | | procedure are in the | | | | PDT | | results section. | + +--------+ + + + documented in this encounter Results CT Head wo Contrast (06/25/2016 3:38 PM PDT) + + | Specimen | + + | | + + + + + | Impressions | Performed At | + + + | 1. No acute intracranial findings. 2. Left frontal sinusitis. | | | | | | PM | | + + + + + + | Narrative | Performed At | + + + | NORAH GR CT HEAD WO CONTRAST 06/25/2016 3:28 PM HISTORY: | | | Weakness and presumed concern for a stroke. TECHNIQUE: 5 mm axial | | | sections were obtained through the head without IV contrast. Dose | | | reduction technique was performed using automated exposure control or | | | adjustment of the mA and/or kV according to patient size. | | | FINDINGS: Compared with 06/16/2016. No midline shift. Ventricles are | | | normal in size. No hydrocephalus. There is no evidence of intracranial | | | mass, hemorrhage, or infarction. The left frontal sinus is opacified, | | | suggesting sinusitis. | | + + + + + | Procedure Note | + + | Richard, Rad Conversion - 09/19/2018 4:20 PM PDT NORAH GRCT HEAD WO | | CONTRAST06/25/2016 3:28 PM HISTORY:Weakness and presumed concern for a stroke. | | TECHNIQUE:5 mm axial sections were obtained through the head without IV contrast. Dose | | reduction technique was performed using automated exposure control or adjustment of the | | mA and/or kV according to patient size. FINDINGS:Compared with 06/16/2016. No midline | | shift. Ventricles are normal in size. No hydrocephalus. There is no evidence of | | intracranial mass, hemorrhage, or infarction. The left frontal sinus is opacified, | | suggesting sinusitis. IMPRESSION: 1. No acute intracranial findings.2. Left frontal | | sinusitis. | | | |FINDINGS: | |Compared with 06/16/2016. No midline shift. Ventricles are normal in size. No hydrocephalus. There is no evidence of intracranial mass, hemorrhage, or infarction. The left frontal sinu s is opacified, suggesting sinusitis. | | | |IMPRESSION: | |1. No acute intracranial findings. | |2. Left frontal sinusitis. | | | | | + + XR Chest 2 Vws (06/25/2016 3:26 PM PDT) + + | Specimen | + + | | + + + + + | Impressions | Performed At | + + + | 1. No acute cardiopulmonary process. | | + + + + + + | Narrative | Performed At | + + + | NORAH GR 1955 60 years Male XR CHEST 2 VIEW FRONTAL | | | AND LATERAL 06/25/2016 3:26 PM INDICATION: Weakness. | | | COMPARISON: Chest radiograph, most recent dated February 25, 2015. | | | TECHNIQUE: Two view chest, PA and lateral views FINDINGS: The | | | cardiomediastinal contours are normal. There is no mediastinal | | | widening or shift. No pneumothorax or effusion. Minimal chronic | | | opacity at the left lung base is unchanged, likely scarring. Otherwise | | | the lungs are clear.. Osseous structures are normal. | | + + + + + | Procedure Note | + + | Richard, Rad Conversion - 09/19/2018 4:20 PM PDT NORAH [id number] years MaleXR | | CHEST 2 VIEW FRONTAL AND LATERAL06/25/2016 3:26 PM INDICATION: Weakness. COMPARISON: | | Chest radiograph, most recent dated February 25, 2015. TECHNIQUE: Two view chest, PA and | | lateral views FINDINGS: The cardiomediastinal contours are normal. There is no | | mediastinal widening or shift. No pneumothorax or effusion. Minimal chronic opacity at | | the left lung base is unchanged, likely scarring. Otherwise the lungs are clear.. | | Osseous structures are normal. IMPRESSION: 1. No acute cardiopulmonary process. | | | |COMPARISON: Chest radiograph, most recent dated February 25, 2015. | | | |TECHNIQUE: Two view chest, PA and lateral views | | | |FINDINGS: The cardiomediastinal contours are normal. There is no mediastinal widening or s hift. No pneumothorax or effusion. Minimal chronic opacity at the left lung base is unchang ed, likely scarring. Otherwise the lungs are clear.. Osseous | |structures are normal. | | | |IMPRESSION: | |1. No acute cardiopulmonary process. | | | | | + + Urinalysis, Reflex Microscopic and/or Culture (06/25/2016 3:16 PM PDT) + + + + + [...] + + + + | Specific | 1.016 | 1.002 - 1.030 | EXTERNAL | | | [place], | | | LAB | | | Urine | | | | | + + + + + + | Leukocyte | TRACE (A) | | EXTERNAL | | | Esterase, [...] + + + | pH, Urine | 7.0 | 5.0 - 8.0 | EXTERNAL | [...] + + + + | Glucose, | NEGATIVE | mg/dL | EXTERNAL | | | Urine | | | LAB | | + + + + + + | WBC, UA | 6-10 | 0 - 5 /hpf | EXTERNAL | | | | | | LAB | | + + + + + + | RBC, UA | 0-2 | 0 - 2 /hpf | EXTERNAL | | | | | | LAB | | + + + + + + | Bacteria, | NONE SEEN | | EXTERNAL | | | UA | | | LAB | | + + + + + + | Epithelial | 6-10Comment: Testing | /lpf | EXTERNAL | | | Cells | performed at [facility];[address] | | LAB | | | | [address]anna [address];[place] | | | | | | [id number] | | | | + + + + + + + + | Specimen | + + | | + + + +---------+ + + | Performing | Address | City/State/Zipcode | Phone Number | | Organization | | | | + +---------+ + + | EXTERNAL LAB | | | | + +---------+ + + HISTORICAL LAB PANEL RESULT (06/25/2016 3:08 PM PDT) + + + + + -+ | Component | Value | Ref Range | Performed | Pathologist | | | | | At | Signature | + + + + + -+ | WBC | 9.00 | 3.80 - 11.00 | EXTERNAL | | | | | K/uL | LAB | | + + + + + -+ | Non- | 4.74 | 4.20 - 5.70 | EXTERNAL | | | Red Blood | | M/uL | LAB | | | Cells | | | | | | Counted | | | | | + + + + + -+ | Hemoglobin | 13.4 | 13.2 - 17.0 | EXTERNAL | | | | | g/dL | LAB | | + + + + + -+ | Hematocrit, | 39.5 | 39.0 - 50.0 % | EXTERNAL | | | POC | | | LAB | | + + + + + -+ | MCV | 83.3 | 80.0 - 100.0 fl | EXTERNAL | | | | | | LAB | | + + + + + -+ | MCH | 28.3 | 27.0 - 34.0 pg | EXTERNAL | | | | | | LAB | | + + + + + -+ | MCHC | 34.0 | 32.0 - 35.5 | EXTERNAL | | | | | g/dL | LAB | | + + + + + -+ | RDW-CV | 43.8 | 37 - 53 fl | EXTERNAL | | | | | | LAB | | + + + + + -+ | Platelet | 231 | 150 - 400 K/uL | EXTERNAL [...] + + -+ | % Segmented | 63.01 | % | EXTERNAL | | | | | | LAB | | | Neutrophils | | | | | + + + + + -+ | % | 24.97 | % | EXTERNAL | | | Lymphocytes | | | LAB | | + + + + + -+ | % Monocytes | 8.78 | % | EXTERNAL | | | | | | LAB | | + + + + + -+ | % | 2.27 | % | EXTERNAL | | | Eosinophils | | | LAB | | + + + + + -+ | % Basophils | 0.97 | % | EXTERNAL | | | | | | LAB | | + + + + + -+ | Absolute | 5.67 | 1.90 - 7.40 | EXTERNAL | | | Segmented | | K/uL | LAB | | | Neutrophils | | | | | + + + + + -+ | Absolute | 2.25 | 1.00 - 3.90 | EXTERNAL | | | Lymphocytes | | K/uL | LAB | | + + + + + -+ | Absolute | 0.79 | 0.00 - 0.80 | EXTERNAL | | | Monocytes | | K/uL | LAB | | + + + + + -+ | Absolute | 0.20 | 0.00 - 0.50 | EXTERNAL | [...] + + + -+ | K | 3.9 | 3.5 - 4.9 | EXTERNAL | | | | | mmol/L | LAB | | + + + + + -+ | Cl | 104 | 99 - 109 mmol/L | EXTERNAL [...] + + + -+ | Glucose, | 177 (H) | 65 - 99 mg/dL | EXTERNAL | | | Fasting | | | LAB | | + + + + + -+ | BUN | 36 (H) | 8 - 25 mg/dL | EXTERNAL | | | | | | LAB | | + + + + + -+ | Creatinine | 1.5 (H) | 0.70 - 1.30 | EXTERNAL | | | | | mg/dL | LAB | | + + + + + -+ | BUN/Creatin | 24 | | EXTERNAL | | | ine Ratio | | | LAB | | + + + + + -+ | Calcium | 9.7 | 8.5 - 10.5 | EXTERNAL | | | | | mg/dL | LAB | | + + + + + -+ | Protein, | 7.4 | 6.3 - 8.2 g/dL | EXTERNAL | | | Total | | | LAB | | + + + + + -+ | Albumin | 3.4 | 3.3 - 4.8 g/dL | EXTERNAL | | | | | | LAB | | + + + + + -+ | Globulin | 4.0 | 1.3 - 4.9 g/dL | EXTERNAL [...] + + + -+ | ALP, | 57 | 35 - 115 U/L | EXTERNAL | | | External | | | LAB | | + + + + + -+ | AST | 18 | 10 - 45 U/L | EXTERNAL | | | | | | LAB | | + + + + + -+ | ALT | 19 | 10 - 65 U/L | EXTERNAL | | | | | | LAB | | + + + + + -+ | Estimated | 51 (L)Comment: GFR <60: [...] + + -+ | CK, Total | 93 | 55 - 400 U/L | EXTERNAL [...] + + + -+ | CK-MB | 2.2 | 0.5 - 3.6 ng/mL | EXTERNAL | | | | | | LAB | | + + + + + -+ | CK-MB Index | 2.4Comment: CK INDEX [...] | | | + +---------+ + + TSH (06/25/2016 3:08 PM PDT) + + + + + + | Component | Value | Ref Range | Performed | Pathologist | | | | | At | Signature | + + + + + + | TSH | 3.60Comment: Testing | 0.45 - 5.10 | EXTERNAL | | | | performed at [facility], [address] | uIU/mL | LAB | | | | [address], | | | | | | [place] [address] | | | | + + + [...] + +---------+ + + ECG 12 lead (06/25/2016 3:05 PM PDT) + + + + + + | Component | Value | Ref Range | Performed | Pathologist | | | | | At | Signature | + + + + + + | DIAGNOSIS: | Sinus bradycardiaSeptal | | EXTERNAL | | | | infarct , age | | LAB | | | | undeterminedAbnormal | | | | | | ECGWhen compared with | | | | | | ECG of 16-JUN-2016 | | | | | | 20:10,Septal infarct is | | | | | | now PresentThis ECG | | | | [...] | | | | | | video tape editor [place] | | | | | | ([id number]) on 06/25/2016 | | | | | | 6:34:21 PM | | | | + + + + + + + + | Specimen | + + | | + + + + + | Narrative | Performed At | + + + | Historically converted procedure from [facility] environment | EXTERNAL LAB | + + + + +---------+ + + | Performing | Address | City/State/Zipcode | Phone Number | | Organization | | | | + +---------+ + + | EXTERNAL LAB | | | | + +---------+ + + documented in this encounter Visit Diagnoses + + | Diagnosis | + + | Light headedness | + + | Generalized weakness Other malaise and fatigue | + + | Hyperglycemia Other abnormal glucose | + + | Chronic kidney disease, unspecified stage | + + | Elevated blood pressure Elevated blood pressure reading without diagnosis of | | hypertension | + + documented in this encounter
--- OUTSIDE RECORDS SUMMARY | ~2019-09-09 | XMS | Encounter Summary ---
Demographics + + + | Address | [address] | | | [place] [address] | + + + | Home Phone | | + + + | Preferred Language | Unknown | + + + | Marital Status | | + + + | Restorationist Affiliation | 1027 | + + + | Race | Unknown | + + + | Ethnic Group | Unknown | + + + Author + + + | Author | [facility] | | | and [place] | + + + | Organization | [facility] | | | and [place] | + + + | Address | Unknown | + + + | Phone | Unavailable | + + + Support + + + + + | Name | Relationship | Address | Phone | + + + + + | Sammi Kohler | ECON | [place] [address] | | + + + + + Care Team Providers + +------+ + | Care Custom Tailor Name | Role | Phone | + +------+ + | Mireya Pack NP | PCP | | + +------+ + Reason for Visit + +--------+ + | Reason | Onset | Comments | | | Date | | + +--------+ + | Follow-up | 07/07/ | | | | 2020 | | + +--------+ + Encounter Details +--------+ + + + + | Date | Type | Department | Care Team | Description | +--------+ + + + + | 07/07/ | Telephone | [facility] | Mireya Pack, | Follow-up | | 2020 | | [facility] [address] | FINISHED [facility] [address] | | | | | [address] | [address] [place], | | | | | [place], [place] | [place] [address] | | | | | [address] | [phone] | | | | | [phone] | | | +--------+ + + + [...] Telephone Encounter - Lucia Amos RN - 07/08/2019 10:42 AM PDTSpoke with patient an d scheduled apt for Monday. He does not have any questions about his hospital stay, he january tinsley wanted to find out about the results of the test for COVID19. Informed it was negative an d then patient hung up the phone. elephone Encounte r - Doris Singleton - 07/08/2019 8:59 AM PDTDavid was calling to check on the status o f his er follow up. Please advise him.Electronically signed by Doris Garvin at 2019 9:00 AM PDTTelephone Encounter - Heidi Moody - 07/08/2019 7:32 AM PDTPatient wa s in the er and needs to follow up with provider. Please call him at [phone] Heidi Moody documented in this enco unter Plan of Treatment +--------+---------+ + + + | Date | Type | Specialty | Care Team | Description | +--------+---------+ + + + | 09/10/ | Office | Geriatric Medicine | Mireya Pack, | | 2019 | Visit | | FINISHED [facility] [address] | | | | | | [address] [place], | | | | | | [place] [address] | | | | | | [phone] | | | | | | | | +--------+---------+ + + + | 09/29/ | Office | Urology | Mireya Pack, | | | 2019 | Visit | | FINISHED [facility] [address] | | | | | | [address] [place], | | | | | | [place] [address] | | | | | | [phone] | | | | | | | | | | | | Toy Wild, DO | | | | | | [address] | | | | | | [place] [address] | | | | | | [phone] | | | | | | | [...]
--- OUTSIDE RECORDS SUMMARY | ~2019-09-09 | XMS | Encounter Summary ---
Demographics + + + | Address | [address] | | | [place] [address] | + + + | Home Phone | | + + + | Preferred Language | Unknown | + + + | Marital Status | | + + + | Denominational Affiliation | 1027 | + + + | Race | Unknown | + + + | Ethnic Group | Unknown | + + + Author + + + | Author | [facility] | | | and [place] | + + + | Organization | [facility] | | | and [place] | + + + | Address | Unknown | + + + | Phone | Unavailable | + + + Support + + + + + | Name | Relationship | Address | Phone | + + + + + | Sammi Kohler | ECON | [place] [address] | | + + + + + Care Team Providers + +------+ + | Care Metal Washing Machine Operator Name | Role | Phone | + +------+ + PCP | Unavailable | + +------+ + Encounter Details +--------+ + + + + | Date | Type | Department | Care Team | Description | +--------+ + + + + | 02/06/ | [facility] | [facility] | Keisha Ahn MD | Atrial fibrillation | | 2019 - | Encounter | [facility] | [address] | with RVR (HCC); | | | | CLINICAL DECISION | [place] [address] | Chest pain, | | 02/07/ | | [address] | [phone] | unspecified type; | | 2019 | | [place], [place] | | Chronic | | | | [address] | | anticoagulation | | | | [phone] | | | +--------+ + + + [...] t from the original. Discharge Summaries by JERZY Porter at 02/07/18 6261 Author: JERZY Porter Service: Hospitalist Author Type: Resident-Y2 Filed: 02/07/18 7951 Date of Service: 02/07/18 8997 Status: Attested Cover Stitch Machine Operator: JERZY Porter (Resident-Y2) Cosigner: Bong Ahn MD at 02/07/18 5457 Attestation signed by Bong Ahn MD at 02/07/18 8967 Patient seen and examined prior to discharge. [...] of care mentioned in t he note. [facility]: Hospitalist Discharge Summary Date of Admission: [...] called his friend and was brought to [facility]. Pain radiated to his neck and he [...] assess with recommended increase in caregiver hours. produce department manager was in touch with liza benton's outpatient correctional case records supervisor and plan to coordinate evaluation for more caregiver hours. [facility] pational therapy trained patient on how to take medications properly and patient was able to demonstrate prior to discharge. Strongly encourage patient to take medications as prescribe d and as instructed. He verbalized understanding and was discharged in stable condition with close follow-up with PCP. We recommend patient be referred to psychiatrist by PCP for [facility] er management of mood stabilizing medications. No [...] focal deficit noted. DATA Recent Labs Lab 02/07/1838 02/06/18 0803 WBC 9.78 7.60 HGB 13.3 [...] Your Medications These medications were sent to [facility] to [facility] [id number] [place] [id number] apixaban 5 MG tablet budesonide-formoterol 160-4.5 MCG/ACT [...] (none) Author Type: Registered Nurse Filed: 02/07/18 0689 Date of Service: 02/07/18 0450 Status: Signed Cover Stitch Machine Operator: Krishna Monteiro RN (Registered Nurse) Pt discharged off unit via wheelchair to dial a ride. Discussed all discharge and prescript ion information with the patient. Pt verbalized understanding of all information given, CM d iscussed pt needs with pts personal correctional case records supervisor. (see note). All personal belongings with p atient at time of discharge. IV removed and tele notified. onver ivana Transaction, Provider Unknown - 02/07/2018 12:28 PM PST Case Management by González Soni MS, CREASING AND CUTTING PRESS FEEDER at 02/07/18 1228 Author: González Soni MS CREASING AND CUTTING PRESS FEEDER Service: (none) Author Type: Ruby On Rails Engineer Filed: 02/07/18 1235 Date of Service: 02/07/18 1228 Status: Addendum Cover Stitch Machine Operator: González Soni MS CREASING AND CUTTING PRESS FEEDER (Ruby On Rails Engineer) Related Notes: Original Note by González Soni MS, CREASING AND CUTTING PRESS FEEDER (Ruby On Rails Engineer) filed at 02/07/18 6157 CM met with pt, anticipating d/c today. [...] the local area and support from local rastafari. Pt has a correctional case records supervisor Sofie roberts [phone] at [facility] and she reports that pt received 20 hours per mon for supportive services. Sofie states pt has declined Medicaid due to the participation f ee he must incur. Pt has an consolidation accountant in [place] that manages his finances and pt reports h e is content with their services. [facility] agency provides the care giving. Meals on [...] to Sofie HILLMAN. Sofie reports that the Learning And Development Intern will visit with pt at his home to discuss the care needs and recommendations once pt is home. CM briefed with RN and anticipating d/c today. onver ivana Transaction, Provider Unknown - 02/06/2018 8:52 PM PST Progress Notes by Pepe Xie RPH at 02/06/182051 Author: Pepe Xie RPH Service: Pharmacy Author Type: Pharmacist Filed: 02/06/182051 Date of Service: 02/06/182051 Status: Signed Cover Stitch Machine Operator: Pepe Xie RPH (Pharmacist) Note ccl 79.9ml/min meds reviewed pharmacy will follow [facility] 2051 onver ivana Transaction, Provider Unknown - 02/06/2018 3:05 PM PST Nurse Progress Note by Zeynep Black RN at 02/06/18 1505 Author: Zeynep Black RN Service: (none) Author Type: Registered Nurse Filed: 02/06/18 1513 Date of Service: 02/06/18 1505 Status: Signed Cover Stitch Machine Operator: Zeynep Black RN (Registered Nurse) In discussion [...] Date of Service: 02/06/18 1002 Status: Addendum Cover Stitch Machine Operator: Keisha Ahn MD (Physician) Related Notes: Original Note by Keisha Ahn MD (Physician) filed at 02/06/18 1119 [facility]: Hospitalist Admission History & Physical Date [...] called his friend and was brought to [facility]. Pain radiated to his neck and he [...] (HCC) 10/14/2017 Anxiety ARF (acute renal failure) ([facility]) 03/02/2013 Atrial fibrillation (HCC) Basal cell carcinoma [...] - CHOLECYSTECTOMY; Surgeon: Jevon Vargas DO; Location: [facility] MAIN OR; Service: General; 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; COLONOSCOPY COLONOSCOPY N/A 03/04/2013 Procedure: COLONOSCOPY; Surgeon: Howie Gibson MD; Location: [facility] ENDOSCOPY; Service: Gastroen terology; 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; ESOPHAGOGASTRODUODENOSCOPY N/A 03/03/2013 Procedure: ESOPHAGOGASTRODUODENOSCOPY; Surgeon: Howie Gibson MD; Location: [facility] ENDOSCOPY; Se rvice: Gastroenterology; 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; HERNIA REPAIR N/A 07/03/2013 Procedure: LAPAROSCOPIC - HERNIA - INCISIONAL; Surgeon: Jevon Vargas DO; Location: [facility] MAIN OR; Service: General; 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; KNEE SURGERY rt knee, patella LEG SURGERY LLE SKIN BIOPSY SKIN CANCER EXCISION Left 10/10/2012 Procedure: EXCISION - SKIN CANCER; Surgeon: Sy Fierro MD; Location: [facility] MAIN OR; Service: Plastics; Laterality: Left; upper arm and upper back w/frozen section SKIN LESION EXCISION Left 05/05/2014 Procedure: EXCISION - LESION - FROZEN SECTION; Surgeon: Sy Fierro MD; Location: [facility] MAIN OR; Service: Plastics; Laterality: [...] Notes by Brynn Frazier RN at 02/06/18 1308 Author: Brynn Frazier RN Service: (none) Author Type: Registered Nurse Filed: 02/06/18 130 Date of Service: 02/06/181307 Status: Signed Cover Stitch Machine Operator: Brynn Frazier RN (Registered Nurse) Bedside report given to EVE Adhikari. Brynn Frazier RN 02/06/181307 Reynaldo Landin DO - 02/06/2018 7:37 AM PSTFormatting of this note might be different f rom the original. 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 Obesity, Class I, BMI 30-34.9 07/08/2013 WARD (obstructive sleep apnea) 08/11/2012 does not use CPAP because of the noise Other chronic pain Renal failure Stroke (HCC) TIA (transient ischemic attack) Unspecified visual disturbance reading glasses Past Surgical History Procedure Laterality Date ABDOMINAL SURGERY CHOLECYSTECTOMY CHOLECYSTECTOMY, LAPAROSCOPIC N/A 09/12/2012 Procedure: LAPAROSCOPIC - CHOLECYSTECTOMY; Surgeon: Jevon Vargas DO; Location: [facility] MAIN OR; Service: General; 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; COLONOSCOPY COLONOSCOPY N/A 03/04/2013 Procedure: COLONOSCOPY; Surgeon: Howie Gibson MD; Location: [facility] ENDOSCOPY; Service: Gastroen terology; 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; ESOPHAGOGASTRODUODENOSCOPY N/A 03/03/2013 Procedure: ESOPHAGOGASTRODUODENOSCOPY; Surgeon: Howie Gibson MD; Location: [facility] ENDOSCOPY; rvice: Gastroenterology; 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; HERNIA REPAIR N/A 07/03/2013 Procedure: LAPAROSCOPIC - HERNIA - INCISIONAL; Surgeon: Jevon Vargas DO; Location: [facility] MAIN OR; Service: General; 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; KNEE SURGERY rt knee, patella LEG SURGERY LLE SKIN BIOPSY SKIN CANCER EXCISION Left 10/10/2012 Procedure: EXCISION - SKIN CANCER; Surgeon: Sy Fierro MD; Location: [facility] MAIN OR; Service: Plastics; Laterality: Left; upper arm and upper back w/frozen section SKIN LESION EXCISION Left 05/05/2014 Procedure: EXCISION - LESION - FROZEN SECTION; Surgeon: Sy Fierro MD; Location: [facility] MAIN OR; Service: Plastics; Laterality: Left; forearm UNLISTED PROCEDURE ARTHROSCOPY UPPER GASTROINTESTINAL ENDOSCOPY Prior to Admission medications Medication Sig Start Date End Date Taking? Authorizing Provider Albuterol Sulfate (VENTOLIN HFA IN) Inhale 2 puffs into the lungs as needed. 108 mcg/act Historical Provider Lgphz-L-Jklldwkamcrtv (BEANO) TABS Take 150 Units by mouth [...] 200 mg by mouth daily. Historical Provider clvurubef-cskgjkal-uaelhrvhq hydroxide-simethicone Take 40 mLs by mouth daily [...] CV/Resp: Positive for chest pain Negative for flwmhbgsi-mb-foauem, cough GI: Positive for nausea Negative for [...] Date/Time Urinalysis (reflex to micro/reflex to culture) [[id number]] (Abnormal) Collected: 02/0651 Order Status: Completed Specimen: Urine, Clean Catch Updated: 02/06/18 1003 COLOR UA YELLOW CLARITY CLEAR Specific [place], UA 1.027 1.002 - 1.030 LEUKOCYTE ESTERASE NEGATIVE NEGATIVE NITRITE NEGATIVE NEGATIVE UROBILINOGEN NORMAL <1.1 mg/dL PROTEIN NEGATIVE NEGATIVE mg/dL PH,URINE 5.0 5.0 - 8.0 BLOOD NEGATIVE NEGATIVE KETONES NEGATIVE NEGATIVE mg/dL BILIRUBIN NEGATIVE NEGATIVE GLUCOSE >500 (A) NEGATIVE mg/dL INFLUENZA A AND B [[id number]] Collected: 02/06/1847 Order Status: Completed Updated: 02/06/18915 INFLUENZA A NEGATIVE NEGATIVE INFLUENZA B NEGATIVE NEGATIVE Flu Swab [[id number]] Collected: 02/06/1842 Order Status: Completed Specimen: Nasal from Nasal Swab Updated: 02/06/18847 Flu Swab Collection SPECIMEN RECEIVED IN LAB Cardiac Panel [[id number]] (Abnormal) Collected: 02/06/18802 Order Status: Completed Updated: 02/06/18 0842 WBC [...] 3.6 ng/mL CK-MB Index 4.3 Troponin I [[id number]] Collected: 02/06/18802 Order Status: Completed Specimen: Blood Updated: 02/06/1842 TROPONIN I 0.026 0.00 - 0.10 ng/mL BNP [[id number]] Collected: 02/06/18802 Order Status: Completed Specimen: Blood Updated: 02/06/1837 BRAIN NATRIURETIC PEPTIDE 18.1 0 - 100 [...] New Prescriptions No new medications Dictation software, Dragon, used which may contain error for similar [...] Treatment Plan by TORY Gary at 02/07/18 1054 Author: TORY Gary Service: (none) Author Type: Occupational Therapist Filed: 02/07/18 1300 Date of Service: 02/07/18 1055 Status: Signed Cover Stitch Machine Operator: TORY Gary (Occupational Therapist) OCCUPATIONAL THERAPY EVALUATION OT Received On: 02/07/18 Reason for Treatment: Other (comment) (admitted with AVR, chest pain) Requires OT Follow Up: Awaiting tx order OT Eval/Reassessment Date: 02/07/18 Assistance Required: Other (comment) (supervision) Insurance Claims Processor Needed: No Family/Caregiver Present: No Recommendation: Home [...] get to appointe.ts. Prior Function Level of [place]: Independent with functional mobility, Independent with ADLs, [...] shoulder d/t fall about 5 mths ago. 0/10 currently. RUE Assessment: Within Functional Limits LUE [...] evidence of learning [] Refused Low - 13515 Moderate - 56217 High - 36260 History [x] Brief history including review of [...] angelique Clinical Decision Making Complexity: [x] Low 43380 [] Moderate 09188 [] High 00495 lan of Care - C onversion Transaction, Provider Unknown - 02/07/2018 10:14 AM PSTFormatting of this note irvin ht be different from the original. Plan of Care by Krishna Monteiro RN at 02/07/18 1014 Author: Krishna Monteiro RN Service: (none) Author Type: Registered Nurse Filed: 02/07/18 1014 Date of Service: 02/07/18 1014 Status: Signed Cover Stitch Machine Operator: Krishna Monteiro RN (Registered Nurse) Problem: Safety [...] Pt A/O X4, pathways clear, adequate lighting iscChrista Samuel V PT - 02/07/2018 9:55 AM PSTFormatting of this note might be diffe rent from the original. Treatment Plan by Christa Higgins V PT at 02/07/18 0955 Author: Christa Matute PT Service: (none) Author Type: Physical Therapist Filed: 02/07/18 1025 Date of Service: 02/07/1855 Status: Signed Cover Stitch Machine Operator: Christa Higgins V PT (Physical Therapist) PHYSICAL THERAPY EVALUATION PT Received On: 02/07/18 Reason for Treatment: Deconditioning Requires PT Follow Up: No PT Eval/Reassessment Date: 02/07/18 Assistance Required: Independent Insurance Claims Processor Needed: No Recommendations: Prior Setting Equipment Recommended: [...] cost too much" Prior Function Level of [place]: Independent with functional mobility, Independent with ADLs, Indepe ndent with IADLs Falls in Past Year: Yes ("about 10 times") Lives With: Alone Receives Help From: Other (Comment) (has some help come in once a week to make meal and kylee ck in ) Employment: Retired for age (used to work at [email or web address]) Leisure: Hobbies-yes (Comment) (likes to go to [place]) RUE Assessment: Within Functional Limits LUE Assessment: [...] evidence of learning [] Refused Low - 73410 Moderate - 67532 High - 36132 History [] no personal factors &/or comorbidities [] 1-2 personal factors &/or comorbiditi es [x] 3 or more personal factors &/or comorbidities Examination [x] 1-2 elements [] 3 elements [] 4 or more elements Clinical Presentation [x] stable [] evolving [] unstable Clinical Decision Making Complexity: [x] Low 05491 [] Moderate 97096 [] High 9 7163 Past Medical History [...] 02/06/182016 Date of Service: 02/06/182016 Status: Signed Cover Stitch Machine Operator: Jaycee Partida RN (Registered Nurse) Problem: Pain [...] 02/06/181836 Date of Service: 02/06/181836 Status: Signed Cover Stitch Machine Operator: Zeynep Black RN (Registered Nurse) Problem: Discharge [...] 1526 Date of Service: 02/06/181525 Status: Signed Cover Stitch Machine Operator: Jenniffer Martínez RPH (Pharmacist) Rx Admission Medication History Note I have reviewed the medication history for appropriate doses obtained by: Pharmacy Medicat ion History Data Entry Coordinator. After reviewing the home medication list : [...] Altamirano CPhT 02/06/2018 12:13 Rx Medication History Data Entry Coordinator Note Patients Preferred Pharmacy has been updated in EPIC: [facility] [place], [place] - [address] [address] [address] [facility] Drug Photos to Photos [address] [place] [address] [place] [address] AT [facility] & Michael Young [address] [facility] [address] [facility] - [address] [address] Patients Allergies have been updated and marked as reviewed: yes Nitroglycerin and Vitamin b12 The following changes were made to the allergy list (if any): N/A Medication History provided by: Patient, Patient Medication List and [employer] Info Follow-up Issues: None - Pending [...] package. 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 Albuterol Inhaler Beano tablets Antipyrine-benzocaine drops Apixaban 5 mg Calcium carbonate 500 mg Clonazepam 1 mg Clonidine 0.1mg/24 hour patch Hydrocodone 5/325 tabs Hydralazine 25 mg Lidocaine-Aluminum- fogfxhvlk-zdcifqigq-fcoigclefgp Mometasone 100/5 mcg/act Omeprazole 20 mg Zofran-ODT 4 mg Glycolax powder Spironolactone-hydrochlorothiazide 25/25 mg Warfarin 4 mg Medication history has been completed: *Awaiting Pharmacist Final Review* Dorota Altamirano CPhT 02/06/2018 12:03 PM Genaro wilson in this encounter Plan of Treatment +--------+---------+ + + + | Date | Type | Specialty | Care Team | Description | +--------+---------+ + + + | 09/10/ | Office | Geriatric Medicine | Mireya Pack, | | | 2019 | Visit | | THERMO PROCESSOR [address] | | | | | | [address] [place], | | | | | | [place] [address] | | | | | | [phone] | | | | | | | | +--------+---------+ + + + | 09/29/ | Office | Urology | Mireya Pack, | | | 2019 | Visit | | THERMO PROCESSOR [address] | | | | | | [address] [place], | | | | | | [place] [address] | | | | | | [phone] | | | | | | | | | | | | [place], | | | | | | [address] | | | | | | [place] [address] | | | | | | [phone] | | | | | | | [...] | | Fingerstick | performed at [facility];[address] | | LAB | | | | [address];[place], [place] | | | | | | [address] | | | | + + + [...] | | Fingerstick | performed at [facility];[address] | | LAB | | | | [address];[place] | | | | | | [address] | | | | + + + [...] | | | | | | ACUTE [place] Testing | | | | | | performed at [facility];[address] | | | | | | [facility];[place], [place] | | | | | | [address] | | | | + + + [...] | | | Basophils | performed at [facility], [address] | [address]/u[address] | LAB | | | | [address], | | | | | | [place] [address] | | | | + + + [...] | | | | performed at [facility] | | LAB | | | | [address] [facility];[place], [place] | | | | | | [address] | | | | + + + [...] | | | | performed at [facility];[address] | | LAB | | | | [facility];[place], [place] | | | | | | [address] | | | | + + + [...] | | | | | | MDRD [facility] traceable | | | | | | equation.Testing | | | | | | performed at [facility];[address] | | | | | | [facility];[place], [place] | | | | | | [address] | | | | + + + [...] | | | | | | ACUTE [place] Testing | | | | | | performed at [facility] | | | | | | [address] [facility];[place] | | | | | | [address] | | | | + + + [...] | | Fingerstick | performed at [facility];[address] | | LAB | | | [address];[place] | | | | | | [address] | | | | + + + [...] | | | | | | ACUTE [place] Testing | | | | | | performed at [facility];[address] | | | | | | [facility];[place], [place] | | | | | | [address] | | | | + + + [...] | | Fingerstick | performed at [facility];[address] | | LAB | | | | [address];[place] | | | | | | [address] | | | | + + + [...] | | Fingerstick | performed at [facility];[address] | | LAB | | | | [address];[place], [place] | | | | | | [address] | | | | + + + [...] Rad Conversion - 09/18/2018 4:21 PM PDT NORAH GR1954US ABDOMEN | | LIMITED02/06/2018 11:34 AM [...] - 1.030 | EXTERNAL | | | [place], | | | LAB | | | [...] | | | Urine | performed at [facility];[address] | | LAB | | | | [address];[place], [place] | | | | | | [address] | | | | + + + [...] performed by Molecular Methodology Testing performed at [facility];[address] | | | [address];[place] [address] | | + + + + +---------+ [...] EXTERNAL LAB | | Testing performed at [facility];[address] [place] [address];[place] [address] | | + + + + +---------+ + + | Performing | Address | City/State/Zipcode | Phone Number | | Organization | | | | + +---------+ + + | EXTERNAL LAB | | | | + +---------+ + + XR Chest 2 Vws (02/06/2018 8:30 AM PST) + + | [...] - 09/18/2018 4:21 PM PDT NORAH Andrea [id number] years MaleXR | | CHEST 2 VIEW [...] | | | | | | ACUTE [place] Testing | | | | | | performed at [facility];[address] | | | | | | [address];[place] | | | | | | [address] | | | | + + + [...] | | | | performed at [facility];[address] | | LAB | | | | [address];[place], [place] | | | | | | [address] | | | | + + + [...] | | | | | clinical editor Roberto Stevens | | | | | | Gonzalo (123) on 02/06/2018 | | | | | | 9:00:20 PM | | | | + + + + + + + + | Specimen | + + | | + + + + + | Narrative | Performed At | + + + | Historically converted procedure from [facility] Epic environment | EXTERNAL LAB | + [...]
--- OUTSIDE RECORDS SUMMARY | ~2019-09-09 | XMS | Encounter Summary ---
Demographics + + + | Address | [address] | | | [place] [address] | + + + | Home Phone | | + + + | Preferred Language | Unknown | + + + | Marital Status | | + + + | Druze Affiliation | 1027 | + + + | Race | Unknown | + + + | Ethnic Group | Unknown | + + + Author + + + | Author | [facility] | | | and [place] | + + + | Organization | [facility] | | | and [place] | + + + | Address | Unknown | + + + | Phone | Unavailable | + + + Support + + + + + | Name | Relationship | Address | Phone | + + + + + | Sammi Kohler | ECON | [place] [address] | | + + + + + Care Team Providers + +------+ + | Care Shoe Planner Name | Role | Phone | + +------+ + PCP | Unavailable | + +------+ + Encounter Details +--------+ + + + + | Date | Type | Department | Care Team | Description | +--------+ + + + + | 08/31/ | Emergency | [facility] | Zach Tena, | Chest pain, | | 2015 | | MEDICAL CENTER | [address] | unspecified chest | | | | EMERGENCY CENTER | [place] [address] | pain type | | | | [address] | [phone] | | | | | [place], [place] | | | | | | [address] | | | | | | [phone] | | | +--------+ + + + [...] 09/07/14618 Date of Service: 08/31/14626 Status: Signed Senior Python Developer: Zach Tena MD (Physician) [facility] Department of Emergency Medicine 6:27 AM History of Present Illness Patient Identification Norah Gr is a 58 y.o. male. Patient information was obtained from patient. History/Exam limitations: none. 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 Past Surgical History Procedure Laterality Date Unlisted procedure arthroscopy Knee surgery rt knee, patella Leg surgery LLE Colonoscopy Cholecystectomy, laparoscopic 09/12/2012 Procedure: LAPAROSCOPIC - CHOLECYSTECTOMY; Surgeon: Jevon Vargas DO; Location: [facility] MAIN OR; Service: General; 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; Abdominal surgery Cholecystectomy Skin cancer excision 10/10/2012 Procedure: EXCISION - SKIN CANCER; Surgeon: Sy Fierro MD; Location: [facility] MAIN OR ; Service: Plastics; Laterality: Left; upper arm and upper back w/frozen section Esophagogastroduodenoscopy 03/03/2013 Procedure: ESOPHAGOGASTRODUODENOSCOPY; Surgeon: Howie Gibson MD; Location: [facility] ENDOSCOPY; S ervice: Gastroenterology; 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; Colonoscopy 03/04/2013 Procedure: COLONOSCOPY; Surgeon: Howie Gibson MD; Location: [facility] ENDOSCOPY; Service: Gastroe nterology; 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; Upper gastrointestinal endoscopy Skin biopsy Hernia repair 07/03/2013 Procedure: LAPAROSCOPIC - HERNIA - INCISIONAL; Surgeon: Jevon Vargas DO; Location: [facility] MAIN OR; Service: General; 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; Skin lesion excision Left 05/05/2014 Procedure: EXCISION - LESION - FROZEN SECTION; Surgeon: Sy Fierro MD; Location: [facility] MAIN OR; Service: Plastics; Laterality: Left; forearm Prior to Admission medications Medication Sig Start Date End Date Taking? Authorizing Provider Albuterol Sulfate (VENTOLIN HFA IN) Inhale 2 puffs into the lungs as needed. 108 mcg/act Historical Provider Mcnxg-W-Rfwvkdqiqamok (BEANO) TABS Take 150 Units by mouth [...] 100 mg by mouth nightly. Historical Provider pnalhieph-zlrurazs-lgidapiit hydroxide-simethicone Take 40 mLs by mouth daily [...] 4U, 121-150=5U, 151-180=6U, 181-210= 7U, 211- 04/23/13 Ky awt Ruab, MD ondansetron (ZOFRAN-ODT) 4 MG disintegrating tablet [...] Number of Children: 1 Years of Education: [employer]. Right Skills Occupational History disabled Social History Main Topics Smoking status: Never Smoker Smokeless tobacco: Never Used Alcohol Use: 0.0 oz/week 1-2 Cans of beer per week Comment: once week, occasionally Drug Use: No Sexual Activity: Not Currently Other Topics Concern Not on file Social History Narrative Lives alone x 1 wk, moved from [facility], , 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 2 falls [...] Value Ref Range Date/Time Troponin I, Lab [[id number]] Collected: 08/31/14 1040 Order Status: Completed Updated: 08/31/14 1112 Specimen Information: Blood TROPONIN I <0.020 0.00 - 0.10 ng/mL Urine microscopic [[id number]] Collected: 08/31/14 0757 Order Status: Completed Updated: 08/31/14 0819 Specimen Information: Urine / Urine, Clean Catch WBC 1-5 0 - 5 /hpf RBC 0-2 0 - 2 /hpf EPITHELIAL 1-5 /lpf BACTERIA NONE SEEN NONE SEEN POC clinitek 10 [[id number]] Collected: 08/31/14 0747 Order Status: Completed Updated: [...] NEGATIVE NEGATIVE WBC, UA NEGATIVE NEGATIVE Lipase [[id number]] Collected: 08/31/14636 Order Status: Completed Updated: 08/31/14708 Specimen Information: Blood LIPASE 219 73 - 393 U/L Troponin I, Lab [[id number]] Collected: 08/31/14636 Order Status: Completed Updated: 08/31/14708 Specimen Information: Blood TROPONIN I <0.020 0.00 - 0.10 ng/mL Comprehensive metabolic panel [[id number]] (Abnormal) Collected: 08/31/14636 Order Status: Completed Updated: [...] 65 U/L EGFR >60 >60 mL/min/1.73m2 Protime [[id number]] Collected: 08/31/14636 Order Status: Completed Updated: 08/31/14704 Specimen Information: Blood INR 2.7 CBC with differential [[id number]] (Abnormal) Collected: 08/31/14636 Order Status: Completed Updated: [...] Follow up With Details Comments Contact Info [facility] Emergency Department If symptoms worsen [address] [facility] [id number] Jerrell Gutiérrez DO Schedule an appointment as soon as possible for a visit [address] [address] [facility] [address] Discharge Medications: New Prescriptions No new medications [...] 08/31/14609 Date of Service: 08/31/14609 Status: Signed Senior Python Developer: Kenny Holliday RN (Registered Nurse) Bed: 01 Expected date: Expected time: Means of arrival: Comments: docume nted in this encounter Plan of Treatment +--------+---------+ + + + | Date | Type | Specialty | Care Team | Description | +--------+---------+ + + + | 09/10/ | Office | Geriatric Medicine | Mireya Pack, | | | 2019 | Visit | | HEAVY EQUIPMENT OPERATOR [address] | | | | | | [address] [place], | | | | | | [place] [address] | | | | | | [phone] | | | | | | | | +--------+---------+ + + + | 09/29/ | Office | Urology | Mireya Pack, | | | 2019 | Visit | | HEAVY EQUIPMENT OPERATOR [address] | | | | | | [address] [place], | | | | | | [place] [address] | | | | | | [phone] | | | | | | | | | | | | Toy Wild, DO | | | | | | [address] | | | | | | [place] [address] | | | | | | [phone] | | | | | | | [...] | | | | | | ACUTE NM Testing | | | | | | performed at [facility];[address] | | | | | | [facility];[place], [place] | | | | | | [address] | | | | + + + [...] EXTERNAL | | | | performed at [facility];[address] | | LAB | | | | [address];[place] | | | | | | [address] | | | | + + + + + + | RBC, UA | 0-2Comment: Testing | 0 - 2 /hpf | EXTERNAL | | | | performed at [facility];[address] | | LAB | | | | [address];[place] | | | | | | [address] | | | | + + + + + + | Epithelial | 1-5Comment: Testing | /lpf | EXTERNAL | | | Cells | performed at [facility];[address] | | LAB | | | | [address];[place] | | | | | | [address] | | | | + + + + + + | Bacteria, | NONE SEENComment: | | EXTERNAL | | | UA | Testing performed at | | LAB | | | | [facility];[address];[place] [address] | | | | + + + [...] | | | | | | ACUTE NM Testing | | | | | | performed at [facility];[address] | | | | | | [facility];[place], [place] | | | | | | [address] [...] | | | | | performed at [facility] | | | | | | [address] [facility];[place], [place] | | | | | | [address] | | | | + + + [...] EXTERNAL | | | | performed at [facility];[address] | K/uL | LAB | | | | [address];[place], [place] | | | | | | [address] | | | | + + + + + + | Non- | 5.19Comment: Testing | 4.20 - 5.70 | EXTERNAL | | | Red Blood | performed at [facility];[address] | M/uL | LAB | | | Cells | [address];[place] | | | | | Counted | [address] | | | | + + + + + + | Hemoglobin | 13.1 (L)Comment: Testing | 13.2 - 17.0 | EXTERNAL | | | | performed at [facility];[address] | g/dL | LAB | | | | [address];[place] | | | | | | [address] | | | | + + + + + + | Hematocrit, | 40.6Comment: Testing | 39.0 - 50.0 % | EXTERNAL | | | POC | performed at [facility];[address] | | LAB | | | | [address];[place] | | | | | | [address] | | | | + + + + + + | MCV | 78.3 (L)Comment: Testing | 80.0 - 100.0 fl | EXTERNAL | | | | performed at [facility];[address] | | LAB | | | | [address];[place] | | | | | | [address] | | | | + + + + + + | MCH | 25.2 (L)Comment: Testing | 27.0 - 34.0 pg | EXTERNAL | | | | performed at [facility];[address] | | LAB | | | | [address];[place] | | | | | | [address] | | | | + + + + + + | MCHC | 32.3Comment: Testing | 32.0 - 35.5 | EXTERNAL | | | | performed at [facility];888 | g/dL | LAB | | | | [address];[place] | | | | | | [address] | | | | + + + + + + | RDW-CV | 47.7Comment: Testing | 37 - 53 fl | EXTERNAL | | | | performed at [facility];[address] | | LAB | | | | [address];[place] | | | | | | [address] | | | | + + + + + + | Platelet | 235Comment: Testing | 150 - 400 K/uL | EXTERNAL | | | Count | performed at [facility];[address] | | LAB | | | Plasma | [address];[place] | | | | | | [address] | | | | + + + + + + | MPV | 7.7Comment: Testing | fl | EXTERNAL | | | | performed at [facility];[address] | | LAB | | | | [address];[place] | | | | | | [address] | | | | + + + + + + | Differentia | AUTOMATEDComment: | | EXTERNAL | | | l Type | Testing performed at | | LAB | | | | [facility];[address];[place] [address] | | | | + + + + + + | % Segmented | 52.11Comment: Testing | % | EXTERNAL | | | | performed at [facility];[address] | | LAB | | | Neutrophils | [address];[place] | | | | | | [address] | | | | + + + + + + | % | 33.56Comment: Testing | % | EXTERNAL | | | Lymphocytes | performed at [facility];[address] | | LAB | | | | [address];[place] | | | | | | [address] | | | | + + + + + + | % Monocytes | 8.21Comment: Testing | % | EXTERNAL | | | | performed at [facility];[address] | | LAB | | | | [address];[place] | | | | | | [address] | | | | + + + + + + | % | 5.08Comment: Testing | % | EXTERNAL | | | Eosinophils | performed at [facility];[address] | | LAB | | | | [address];[place] | | | | | | [address] | | | | + + + + + + | % Basophils | 1.04Comment: Testing | % | EXTERNAL | | | | performed at [facility];[address] | | LAB | | | | [address];[place] | | | | | | [address] | | | | + + + + + + | Absolute | 4.02Comment: Testing | 1.90 - 7.40 | EXTERNAL | | | Segmented | performed at [facility];[address] | K/uL | LAB | | | Neutrophils | [address];[place] | | | | | | [address] | | | | + + + + + + | Absolute | 2.59Comment: Testing | 1.00 - 3.90 | EXTERNAL | | | Lymphocytes | performed at [facility];[address] | K/uL | LAB | | | | [address];[place] | | | | | | [address] | | | | + + + + + + | Absolute | 0.63Comment: Testing | 0.00 - 0.80 | EXTERNAL | | | Monocytes | performed at [facility];[address] | K/uL | LAB | | | | [address];[place] | | | | | | [address] | | | | + + + + + + | Absolute | 0.39Comment: Testing | 0.00 - 0.50 | EXTERNAL | | | Eosinophils | performed at [facility];[address] | K/uL | LAB | | | | [address];[place] | | | | | | [address] | | | | + + + + + + | Absolute | 0.08Comment: Testing | 0.00 - 0.10 | EXTERNAL | | | Basophils | performed at [facility];[address] | K/uL | LAB | | | | [address];[place] | | | | | | [address] | | | | + + + [...] EXTERNAL | | | | performed at [facility];[address] | | LAB | | | | [address];[place] | | | | | | [address] | | | | + + + [...] EXTERNAL | | | | performed at [facility];[address] | mmol/L | LAB | | | | [address];[place] | | | | | | [address] | | | | + + + + + + | K | 3.5Comment: Testing | 3.5 - 4.9 | EXTERNAL | | | | performed at [facility];[address] | mmol/L | LAB | | | | [address];[place] | | | | | | [address] | | | | + + + + + + | Cl | 107Comment: Testing | 99 - 109 mmol/L | EXTERNAL | | | | performed at [facility];[address] | | LAB | | | | [address];[place] | | | | | | [address] | | | | + + + + + + | CO2 | 26Comment: Testing | 23 - 32 mmol/L | EXTERNAL | | | | performed at [facility];[address] | | LAB | | | | [address];[place] | | | | | | [address] | | | | + + + + + + | Anion Gap | 12Comment: Testing | 5 - 20 mmol/L | EXTERNAL | | | | performed at [facility];[address] | | LAB | | | | [address];[place] | | | | | | [address] | | | | + + + + + + | Glucose, | 152 (H)Comment: Testing | 65 - 99 mg/dL | EXTERNAL | | | Fasting | performed at [facility];[address] | | LAB | | | | [address];[place] | | | | | | [address] | | | | + + + + + + | BUN | 15Comment: Testing | 8 - 25 mg/dL | EXTERNAL | | | | performed at [facility];[address] | | LAB | | | | [address];[place] | | | | | | [address] | | | | + + + + + + | Creatinine | 1.11Comment: Testing | 0.70 - 1.30 | EXTERNAL | | | | performed at [facility];888 | mg/dL | LAB | | | | [address];[place] | | | | | | [address] | | | | + + + + + + | BUN/Creatin | 14Comment: Testing | | EXTERNAL | | | ine Ratio | performed at [facility];[address] | | LAB | | | | [address];[place] | | | | | | [address] | | | | + + + + + + | Calcium | 8.4 (L)Comment: Testing | 8.5 - 10.5 | EXTERNAL | | | | performed at [facility];888 | mg/dL | LAB | | | | [address];[place] | | | | | | [address] | | | | + + + + + + | Protein, | 7.1Comment: Testing | 6.3 - 8.2 g/dL | EXTERNAL | | | Total | performed at [facility];[address] | | LAB | | | | [address];[place] | | | | | | [address] | | | | + + + + + + | Albumin | 3.1 (L)Comment: Testing | 3.6 - 5.0 g/dL | EXTERNAL | | | | performed at [facility];[address] | | LAB | | | | [address];[place] | | | | | | [address] | | | | + + + + + + | Globulin | 4.0Comment: Testing | 1.3 - 4.9 g/dL | EXTERNAL | | | | performed at [facility];[address] | | LAB | | | | [address];[place] | | | | | | [address] | | | | + + + + + + | A/G Ratio | 0.8 (L)Comment: Testing | 1.0 - 2.4 | EXTERNAL | | | | performed at [facility];[address] | | LAB | | | | [address];[place] | | | | | | [address] | | | | + + + + + + | Bilirubin | 0.3Comment: Testing | 0.1 - 1.5 mg/dL | EXTERNAL | | | Total | performed at [facility];[address] | | LAB | | | | [address];[place] | | | | | | [address] | | | | + + + + + + | ALP, | 75Comment: Testing | 35 - 115 U/L | EXTERNAL | | | External | performed at [facility];[address] | | LAB | | | | [address];[place] | | | | | | [address] | | | | + + + + + + | AST | 21Comment: Testing | 10 - 45 U/L | EXTERNAL | | | | performed at [facility];[address] | | LAB | | | | [address];[place] | | | | | | [address] | | | | + + + + + + | ALT | 22Comment: Testing | 10 - 65 U/L | EXTERNAL | | | | performed at [facility];[address] | | LAB | | | | [address];[place] | | | | | | [address] | | | | + + + [...] | | | | | | at [facility];[address];[place] [address] | | | | + + + [...] | | | | | ONLY, -COMPUTER ([id number]), | | | | | | scientific editor Estrada San ([id number]) | | | | | | on 08/31/2014 6:38:42 AM | | | | | | | | | | + + + + + + + + | Specimen | + + | | + + + + + | Narrative | Performed At | + + + | Historically converted procedure from [facility] environment | EXTERNAL LAB | + [...]
--- OUTSIDE RECORDS SUMMARY | ~2019-09-09 | XMS | Encounter Summary ---
Demographics + + + | Address | [address] [facility] | | | [place] [address] | + + + | Home Phone [...] + | Sammi Kohler | ECON | [place] [address] | | + + + + + Care Team Providers + +------+ + | Care Oncology Research Rn Name | Role | Phone | + [...] + + | Closed | Specialty | Podiatry | Diagnoses | Sirena, | Alberto, | | | Services | | Type 2 | Mireya Calixto NP | Anuj | | | Required | | diabetes | [address] | Rob, DPM | | | | | mellitus | [address] | [address] | | | | | with | [address] | [place] | | | | | diabetic | [place], [place] | [address] | | | | | polyneuropat | [address] | [place], [place] | | | | | hy, with | Phone: | [phone] | | | | | long-term | [phone] | Phone: | | | | | current use | Fax: | [phone] | | | | | of insulin | [phone] | Fax: | | | | | ([facility]) | | [phone] | | | | | Callus of | | | | | | | foot | | | +--------+ + + + + + Diagnostic/Screening (Routine) + +--------+ + + + + | Status | Reason | Specialty | Diagnoses / | Referred By | Referred To | | | | | Procedures | Contact | Contact | + +--------+ + + + + | Authorized | | Radiology | Diagnoses | Holgado, | [facility] | | | | | Paroxysmal | Mireya Calixto [employer] | [address] | | | | | atrial | [address] | | | | | fibrillation | [address] | [place], [place] | | | | | (HCC) | [address] | [address] | | | | | Murmur, | [place], [place] | Phone: | | | | | cardiac | [address] | [phone] | | | | | Procedures | Phone: | Fax: | | | | | ECHO | [phone] | [phone] | | | | | Complete | Fax: | | | | | | | [phone] | | + +--------+ + + + + Reason for Visit +--------+ + | Reason | Comments | +--------+ + | Other | Establish care as new patient and follow up on chronic conditions | +--------+ + Encounter Details +--------+---------+ + + + | Date | Type | Department | Care Team | Description | +--------+---------+ + + + | 11/07/ | Office | [facility] | Mireya Pack, | Type 2 diabetes | | 2019 | Visit | [facility] [address] | [employer] [address] | mellitus with | | | | [address] | [address], | diabetic | | | | [place], [place] | [place] [address] | polyneuropathy, with | | | | [address] | [phone] | long-term current | | | | [phone] | | use of insulin (HCC) | | | | | | (Primary Dx); | | | | | | Hypertriglyceridemia | | | | | | ; Paroxysmal atrial | | | | | | fibrillation (HCC); | | | | | | Murmur, cardiac; BPH | | | | | | with | | | | | | obstruction/lower | | | | | | urinary tract | | | | | | symptoms; Callus of | | | | | | foot | +--------+---------+ + + + Social History [...] + + + | Blood Pressure | 148/70 | 11/07/2018 2:31 PM | | | | | PDT | | + + + + + | Pulse | 76 | 11/07/2018 2:31 PM | | | | | PDT | | + + + + + | Temperature | 37.3 C (99.1 F) | 11/07/2018 2:31 PM | | | | | PDT | | + + + + + | Respiratory Rate | 17 | 11/07/2018 2:31 PM | | | | | PDT | | + + + + + | Oxygen Saturation | 98% | 11/07/2018 2:31 PM | | | | | PDT | | + + + + + | Inhaled Oxygen | - | - | | | Concentration | | | | + + + + + | Weight | 96.3 kg (212 lb 4.8 | 11/07/2018 2:31 PM | | | | oz) | PDT | | + + + + + | Height | - | - | | + + + + + | Body Mass Index | 29.61 | 11/01/2018 8:26 AM | | | [...] Instructions Patient Instructions Mireya Pack NP - 11/07/2018 2:30 PM PDTYour oral medications we re sent [facility] because [facility] will do bubble pack. I have called them to keep prescrip tions until you are due for refill - call them when you are ready for refill. Contact information: Address: [address] [place] [address], [address] For diabetes: diabetic testing supplies sent to [facility] (rd 20) Start checking blood sugar 4 times daily Blood work any [facility] AFTER 11/13/18 Diabetic foot care recommended every 3 months Recommend eye exam every year and ask eye doctor to send us copy of your exam For prostate: You are already taking flomax for prostate START taking new medication "Finasteride" once daily (sent to [facility] to start and then re fill to [facility] bubble pack) For heart: Echocardiogram ordered, f/u to discuss results documented in this encounter Progress Notes [employer] - 11/07/2018 2:30 PM PDTImmunization ordered and admini stered per authorized protocol for Administering Prevnar -13 Vaccine. Injection was given us ing standard aseptic techniques; after identifying proper landmarks, and patient tolerated t his injection well. Right Deltoid. ayla Umanzor Medical Assistant - 11/07/2018 2:30 PM PDTAfter obtaining consent, and per order s of Mireya BOUCHER, injection of High Dose Influenza Vaccine was given by Cayla paredes CMA. Injection was given using standard aseptic techniques; after identifying proper adrian dmarks, and patient tolerated this injection well. Given on right deltoid. olMireya kidd NP - 11/07/2018 2:30 PM PDT Subjective: Patient ID: Kevyn Guzman is a 62 y.o. 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 MAIN OR; Service: General; 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; COLONOSCOPY COLONOSCOPY 03/04/2013 Procedure: COLONOSCOPY; Surgeon: Howie Gibson MD; Location: [facility] ENDOSCOPY; Service: Gastroen terology; 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; HERNIA REPAIR 07/03/2013 Procedure: LAPAROSCOPIC - HERNIA - INCISIONAL; Surgeon: Jevon Vargas DO; Location: [facility] MAIN OR; Service: General; 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; KNEE SURGERY rt knee, patella LEG SURGERY LLE OTHER SURGICAL HISTORY UNLISTED PROCEDURE ARTHROSCOPY OTHER SURGICAL HISTORY Left 05/05/2014 SKIN LESION EXCISION - Procedure: EXCISION - LESION - FROZEN SECTION; Surgeon: Sy murcia MD; Location: [facility] MAIN OR; Service: Plastics; Laterality: Left; forearm SKIN BIOPSY SKIN CANCER EXCISION Left 10/10/2012 Procedure: EXCISION - SKIN CANCER; Surgeon: Sy Fierro MD; Location: [facility] OR; Service: Plastics; Laterality: Left; upper arm and upper back w/frozen section UPPER GASTROINTESTINAL ENDOSCOPY UPPER GASTROINTESTINAL ENDOSCOPY 03/03/2013 Procedure: ESOPHAGOGASTRODUODENOSCOPY; Surgeon: Howie Gibson MD; Location: [facility] END[facility]; Se rvice: Gastroenterology; Laterality: [...] Lives alone x 1 wk, moved from [facility], , 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 [...] this visit. HPI Patient reports that he would like testing for his heart murmur. He states he needs diabeti c supplies and refills on medications. Has been taking "nighttime" insulin but did not get h umalog from pharmacy. Would like change to pharmacy where he can get bubble pack Patient's medications, allergies, past medical, surgical, social and family histories were obtained and reviewed as appropriate. Review of Systems Constitutional: Negative for activity change, appetite change, chills, fatigue, fever and u nexpected weight change. Respiratory: Positive for cough (occasional) and chest tightness. Negative for shortness of breath and wheezing. Choking: occasional Cardiovascular: Positive for leg swelling (slight on left leg). Negative for chest pain. Gastrointestinal: Negative for abdominal distention, abdominal pain, constipation and diarr hea. Genitourinary: Positive for difficulty urinating (states "has to push it out"). Musculoskeletal: Negative for arthralgias, back pain and gait problem. Skin: Negative for rash and wound. Psychiatric/Behavioral: Positive for dysphoric mood (occasional ). Negative for sleep distu rbance. The patient is not nervous/anxious. Objective: Physical Exam Constitutional: He is [...] time. Skin: Skin is warm and dry. No rash noted. He is not diaphoretic. No erythema. Psychiatric: He has a normal mood and affect. His speech is normal. Cognition and memory ar e not impaired. BP 148/70 | Pulse 76 | Temp 37.3 C (99.1 F) | Resp 17 | Wt 96.3 kg (212 lb 4.8 oz) | SpO2 98% | BMI 29.61 kg/m Lab Results Component Value Date NA [...] mg/dL 10/12/2018 Lab Results Component Value Date CHOL 166 10/12/2018 CHOL 130 09/14/2018 CHOL 114 06/17/2016 Lab Results Component Value Date HDL 26 (L) 10/12/2018 HDL 23 (L) 09/14/2018 HDL 21 (L) 06/17/2016 Lab Results Component Value Date LDL LDL NOT VALID WHEN TRIG >400 mg/dL 10/12/2018 No results found for: LDLDIRECT Lab Results Component Value Date TRIG 498 (H) 10/12/2018 TRIG 375 (H) 09/14/2018 TRIG 354 (H) 06/17/2016 No results found for: CHOLHDL Lab Results Component Value Date HBA1C 11.0 (H) 10/14/2018 No components found for: WHCX20CFONM, PTHINT No results found for: YHLEGOVF19 No results found for: TSH, T4 No results found for: IRON, TIBC, FERRITIN . No results found for: FERRITIN Assessment/Plan: Kevyn was seen today for other. Diagnoses and all orders for this visit: Type 2 diabetes mellitus with diabetic polyneuropathy, with long-term current use of insuli n ([facility]) Diabetic managmenet discussed in detail Foot exam with neuropathy noted, refer pod Eye exam yearly Labs rtc 4 weeks - insulin lispro (HUMALOG KWIKPEN) 100 units/mL injection (pen); Inject 5 Units under t he skin 3 times daily (before meals). Plus sliding scale - Blood Glucose Monitoring Suppl (BLOOD GLUCOSE MONITOR SYSTEM) w/Device KIT; Dispense brand per patient preference - Glucose Blood (BLOOD GLUCOSE TEST STRIPS) STRP; For blood sugar testing 4 times daily - Insulin Pen Needle (BD PEN NEEDLE KYAW U/F) 32G X 4 MM MISC; For insulin administrati on 4 times daily - Comprehensive Metabolic Panel; Future - CBC with Manual Differential; Future - Hemoglobin A1C; Future - Lipid Panel; Future - Ambulatory referral to Podiatry Hypertriglyceridemia Continue statin and fibrate Paroxysmal atrial fibrillation (HCC) Continue eliquis - ECHO Complete; Future Murmur, cardiac - ECHO Complete; Future BPH with obstruction/lower urinary tract symptoms Discussed s/s, etiology and treatment Continue flomax, Start finasteride discussed may take 6 weeks before noticeable effect - PSA, Total and Free; Future Callus of foot - Ambulatory referral to Podiatry Other orders - apixaban (ELIQUIS) 5 mg tablet; Take 1 tablet by mouth 2 times daily. - ARIPiprazole (ABILIFY) 5 mg tablet; Take 1 tablet by mouth Daily. - aspirin 81 MG tablet; Take 1 tablet by mouth Daily. - carvedilol (COREG) 12.5 mg tablet; Take 1 tablet by mouth 2 times daily (with breakfa st & dinner). - fenofibrate 160 mg tablet; Take 1 tablet by mouth Daily. - hydrALAZINE (APRESOLINE) 25 mg tablet; Take 1 tablet by mouth 2 times daily. - lisinopril (PRINIVIL, ZESTRIL) 10 mg tablet; [...] capsule by mouth 2 times daily. - Discontinue: finasteride (PROSCAR) 5 mg tablet; Take 1 tablet by mouth Daily. - finasteride (PROSCAR) 5 mg tablet; Take 1 tablet by mouth Daily. - Pneumococcal conjugate vaccine (PCV13),IM [83191] - Influenza *PF 65 yr or >, Trivalent High-Dose I spent over 40 minutes of time face to face with patient during this visit, > 50% of which were spent on counseling and/or coordination of care regarding the problems documented abov e. documented in this e ncounter Plan of Treatment +--------+---------+ + + + | Date | Type | Specialty | Care Team | Description | +--------+---------+ + + + | 09/10/ | Office | Geriatric Medicine | Mireya Pack, | | | 2019 | Visit | | [employer] [address] | | | | | | [address] [place], | | | | | | [place] [address] | | | | | | [phone] | | | | | | | | +--------+---------+ + + + | 09/29/ | Office | Urology | Mireya Pack, | | 2019 | Visit | | [employer] [address] | | | | | | [address] [place], | | | | | | [place] [address] | | | | | | [phone] | | | | | | | | | | | | [place], | | | | | | [address] | | | | | | [place] [address] | | | | | | [phone] | | | | | | | | +--------+---------+ + + + + + +--------+ + + | Name | Type | Priori | Associated Diagnoses | Order Schedule | | | | ty | | | + + +--------+ + + | CBC with Manual | Lab | Routin | Type 2 diabetes | Expected: | | Differential | | e | mellitus with | 11/14/2018, Expires: | | | | | diabetic | 11/08/2019 | | | | | polyneuropathy, with | | | | | | long-term current | | | | | | use of insulin (HCC) | | + + +--------+ + + | Lipid Panel | Lab | Routin | Type 2 diabetes | Expected: | | | | e | mellitus with | 11/07/2018, Expires: | | | | | diabetic | 11/08/2019 | | | | | polyneuropathy, with | | | | | | long-term current | | | | | | use of insulin (HCC) | | + + +--------+ + + | ECHO Complete | Echocardiog | Routin | Paroxysmal atrial | Expected: | | | michael | e | fibrillation (HCC) | 11/07/2018, Expires: | | | | | Murmur, cardiac | 11/08/2019 | + + +--------+ + + | PSA, Total and Free | Lab | Routin | BPH with | 1 Occurrences | | | | e | obstruction/lower | starting 11/07/2018 | | | | | urinary tract | until 11/08/2019 | | | | | symptoms | | + + +--------+ + + + + +--------+ + + | Name | Type | Priori | Associated Diagnoses | Order Schedule | | | | ty | | | + + +--------+ + + | Ambulatory referral | Outpatient | Routin | Type 2 diabetes | Ordered: 11/07/2018 | | to Podiatry | Referral | e | mellitus with | | | | | | diabetic | | | | | | polyneuropathy, with | | | | | | long-term current | | | | | | use of insulin (HCC) | | | | | | Callus of foot | | + + +--------+ + + documented as of this encounter Visit Diagnoses + + | Diagnosis | + + | Type 2 diabetes mellitus with diabetic polyneuropathy, with long-term current use of | | insulin (HCC) - Primary | + + | Hypertriglyceridemia Pure hyperglyceridemia | + + | Paroxysmal atrial fibrillation (HCC) Atrial fibrillation | + + | Murmur, cardiac Undiagnosed cardiac murmurs | + + | BPH with obstruction/lower urinary tract symptoms Hypertrophy of prostate with | | urinary obstruction and other lower urinary tract symptoms (LUTS) | + + | Callus of foot Corns and callosities | + + documented in this encounter
--- OUTSIDE RECORDS SUMMARY | ~2019-09-09 | XMS | Encounter Summary ---
Demographics + + + | Address | [address] | | | [place] [address] | + + + | Home Phone | | + + + | Preferred Language | Unknown | + + + | Marital Status | | + + + | Baptism Affiliation | [id number] | + + + | Race | Unknown | + + + | Ethnic Group | Unknown | + + + Author + + + | Author | [facility] | | | and [place] | + + + | Organization | [facility] | | | and [place] | + + + | Address | Unknown | + + + | Phone | Unavailable | + + + Support + + + + + | Name | Relationship | Address | Phone | + + + + + | Sammi Kohler | ECON | [place] [address] | | + + + + + Care Team Providers + +------+ + | Care Roofer Gypsum Name | Role | Phone | + +------+ + PCP | Unavailable | + +------+ + Encounter Details +--------+ + + + + | Date | Type | Department | Care Team | Description | +--------+ + + + + | 08/11/ | Hospital | [facility] | Elizabeth Ochoa, | Cholelithiasis; | | 2013 - | Encounter | [facility] [address] | [address] | Diabetes mellitus | | | | [address] | [place] [address] | type II; Fall at | | 08/14/ | | [place], [place] | [phone] | home; HTN | | 2013 | | [id number] | | (hypertension); WARD | | | | [phone] | | (obstructive sleep | | | | | | apnea); CO2 | | | | | | retention; Atrial | | | | | | fibrillation (HCC); | | | | | | Other chest pain; | | | | | | RUQ pain; Acute | | | | | | cholecystitis; Sleep | | | | | | apnea; Hypoxia; | | | | | | Hypertension; | | | | | | Leukocytosis; | | | | | | Abdominal pain, | | | | | | right upper | | | | | | quadrant; Anxiety | | | | | | and depression; | | | | | | Biliary colic | +--------+ + + + + Social [...] documented as of this encounter Discharge Summaries Josefa Diaz MD - 08/14/2012 10:24 AM PDTFormatting of this note might be differ ent from the original. Discharge Summaries by Josefa Ramon MD at 08/14/12 1024 Author: Josefa Ramon MD Service: (none) Author Type: Physician Filed: 08/30/12 1250 Date of Service: 08/14/12 1024 Status: Signed Vaccine Specialist: Josefa Ramon MD (Physician) [facility] Service: Hospitalist Discharge Summary Date of Admission: 08/11/2012 Date of Discharge: 08/14/2012 Discharge Provider: Josefa Ramon MD Treatment Team: Consulting Physician: Elizabeth Ochoa MD Consulting Physician: Valeria Cortez MD Admitting Provider: Elizabeth Ochoa MD Discharge Diagnoses: Active Problems: Diabetes mellitus type II HTN (hypertension) RUQ pain Cholelithiases Hypoxia WARD (obstructive sleep apnea) CO2 retention Respiratory acidosis Resolved Problems: * No resolved hospital problems. * Final Diagnoses: FALL/ ABDOMINAL WALL PAIN Procedures: * No surgery found * Significant Diagnostic Studies: US RUQ : IMPRESSION: 1. Very limited evaluation secondary to body habitus and bowel gas. 2. Liver moderately fatty infiltrated. 3. Single mobile gallbladder stone present as well as possible additional stone within the gallbladder neck, although this is uncertain. No wall thickening evident, although patient i s focally tender over the gallbladder. These findings are equivocal for early acute cholecys titis. Nuclear medicine DISIDA scan imaging could be considered. BRIEF HISTORY OF PRESENTATION: Norah Gr is a 56 y.o. male presented with RUQ pain and found to have cholelithias is and leukocytosis. HOSPITAL COURSE: He was thought to possibly have acute cholecystitis and was admitted to hospitalists with Dr Key consulting. Empiric ceftriaxone and metronidazole were started. The patient was h aving respiratory difficulty, however, and ABG showed respiratory acidosis with CO2 retentio n, and exam was notable for expiratory wheezing. Further evaluation was not consistent with acute cholecystitis, and patient actually reported having an injury to his abdomen related t o a fall. He was placed on bipap with rapid improvement of the resp acidosis. Narcotics were kept to a minimum because of the resp acidosis. Duonebs were also given. Dr Cortez was consulte d, as patient has no history of lung disease. Advair was also started. The patient is noncom pliant with CPAP therapy for WARD. Dr Key evaluated the patient and recommended HIDA scan once patient could tolerate, george athing-kwong. The patient's breathing improved and HIDA was ordered. HIDA was negative and no further intervention was recommended by Dr Key. Antibiotics were discontinued and patie nt was cleared for discharge from surgical standpoint. Dr Cortez recommended follow up as outpatient. Patients abdominal pain is likely abdominal wall pain from the fall. He will be discharged back to Assisted living later today. There were n o complications during the hospitalization. Past Medical History Diagnosis Date Diabetes mellitus [...] daily. atenolol (TENORMIN) 100 MG tablet Take by mouth. cyanocobalamin 1000 MCG tablet Take 100 mcg by mouth daily. diltiazem (DILACOR XR) 120 MG 24 hr capsule Take 240 mg by mouth daily. fenofibrate (TRIGLIDE) 160 MG tablet Take 160 mg by mouth daily. glipiZIDE (GLUCOTROL) 5 MG tablet Take 5 mg by mouth 2 (two) times daily before meals. METFORMIN HCL PO Take 500 mg by [...] Take 1 tablet by mouth da evelia. DISCONTD: ATENOLOL PO Take 100 mg by mouth. DISCHARGE EXAM Vital Signs: BP 162/58 | Pulse 81 | Temp 97.5 F (36.4 C) (Oral) | Resp 20 | Ht 1.803 m (5' 11") | Wt 113.7 kg (250 lb 10.6 oz) | BMI 34.96 kg/m2 | SpO2 93% Physical Exam Vitals reviewed. Constitutional: He is oriented to person, place, and time. No distress. obese HENT: Head: Normocephalic and atraumatic. Mouth/Throat: Oropharynx is clear and moist. Eyes: Conjunctivae are normal. No scleral icterus. Neck: Normal range of motion. Neck supple. JVD couldn't be assessed due to obesity Cardiovascular: Normal rate, regular rhythm, normal heart sounds and intact distal pulses. No murmur heard. Pulmonary/Chest: Effort normal. Breath sounds normal. He has no rales. He exhibits no tende rness. Abdominal: Soft. Bowel sounds are normal. There is no rebound. Obesity limits exam Musculoskeletal: Normal range of motion. He exhibits no edema and no tenderness. Neurological: He is alert and oriented to person, place, and time. Skin: Skin is warm and dry. No rash noted. He is not diaphoretic. No erythema. No pallor. DATA CBC: Lab Results Component Value Date WBC 11.9* 08/14/2012 RBC 3.98* 08/14/2012 HGB 11.6* 08/14/2012 HCT 34.5* 08/14/2012 MCV 86.7 08/14/2012 MCH 29.2 08/14/2012 MCHC 33.7 08/14/2012 RDW 44.2 08/14/2012 PLT 211 08/14/2012 MPV 7.8 08/14/2012 DIFFTYPE AUTOMATED 08/14/2012 CMP: Lab Results Component Value Date NA 139 08/14/2012 K 3.8 08/14/2012 CL 107 08/14/2012 CO2 27 08/14/2012 ANIONGAP 9 08/14/2012 GLUF 150* 08/14/2012 BUN 21 08/14/2012 CREATININE 0.94 08/14/2012 BCR 22 08/14/2012 CA 9.2 08/14/2012 PROT 5.9* 08/14/2012 ALB 3.2* 08/14/2012 GLOB 2.7 08/14/2012 BILITOT 0.4 08/14/2012 ALP 55 08/14/2012 AST 14 08/14/2012 ALT 9* 08/14/2012 EGFR >60 08/14/2012 PLAN D/c Assisted living Disposition: ASSISTED LIVING Condition: Stable Code Status: Full Code Discharge Instructions Diet cardiac Activity as tolerated Call MD for: temperature >100.4 Follow up: Jerrell Diego DO [address] [facility] [facility] [address] Schedule an appointment as soon as possible for a visit in 2 weeks Valeria Cortez MD [address] [facility] [address] Schedule an appointment as soon as possible for a visit in 2 weeks Current Discharge Medication List START taking these medications Details aspirin 325 MG EC tablet Take 1 tablet by mouth daily. Qty: 30 tablet, Refills: 0 fluticasone-salmeterol (ADVAIR DISKUS) 250-50 MCG/DOSE AEPB Inhale 1 puff into the lungs 2 (two) times daily. Qty: 60 each, Refills: 0 ipratropium-albuterol (COMBIVENT) 18-103 MCG/ACT inhaler Inhale 2 puffs into the lungs ever y 6 (six) hours as needed for Wheezing. Qty: 1 Inhaler, Refills: 0 CONTINUE these medications which have NOT CHANGED Details ARIPiprazole (ABILIFY) 10 MG tablet Take 10 mg by mouth daily. atenolol (TENORMIN) 100 MG tablet Take by mouth. cyanocobalamin 1000 MCG tablet Take 100 mcg by mouth daily. diltiazem (DILACOR XR) 120 MG 24 hr capsule Take 240 mg by mouth daily. fenofibrate (TRIGLIDE) 160 MG tablet Take 160 mg by mouth daily. glipiZIDE (GLUCOTROL) 5 MG tablet Take 5 mg by mouth 2 (two) times daily before meals. METFORMIN HCL PO Take 500 mg by mouth 2 (two) times daily. niacin (NIASPAN) 500 MG CR tablet Take 500 mg by mouth 2 (two) times daily. 2 tabs in am, 1 tab in pm paroxetine (PAXIL) 40 MG tablet Take 40 mg by mouth every morning. pravastatin (PRAVACHOL) 20 MG tablet Take 20 mg by mouth nightly. ranitidine (ZANTAC) 150 MG tablet Take 1 tablet by mouth 2 (two) times daily. Qty: 60 tablet, Refills: 0 TAMSULOSIN HCL PO Take 0.4 mg by mouth. triamterene-hydrochlorothiazide (MAXZIDE) 75-50 MG per tablet Take 1 tablet by mouth daily. Discharge took 35 minutes, to include final examination, discussion of admission, and prepa ration of prescriptions, instructions for on-going care, follow-up and documentation of disc harge summary. Josefa Ramon MD 08/14/2012 ONDAdocuchaz light in this encounter Medications at Time [...] Progress Notes Conversion Transaction, Provider Unknown - 08/14/2012 11:03 AM PDTFormatting of this note m ight be different from the original. Progress Notes by Charmaine Mosley RN at 08/14/12 1103 Author: Charmaine Mosley RN Service: (none) Author Type: Registered Nurse Filed: 08/14/12 1105 Date of Service: 08/14/12 110 Status: Signed Vaccine Specialist: Charmaine Mosley RN (Registered Nurse) Pt discharged home to [facility]. He has all personal belongings, discharge instructions and prescriptions. Report called to EVE Nicholas. I discussed with patient activity, diet, safety, skin care and when to follow up. Questions answered. onver ivana Transaction, Provider Unknown - 08/14/2012 10:31 AM PDT Progress Notes by Babar Howard RRT at 08/14/12 1031 Author: Babar Howard RRT Service: (none) Author Type: Registered Respiratory Therapist Filed: 08/14/12 1032 Date of Service: 08/14/12 1031 Status: Signed Vaccine Specialist: Babar Howard RRT (Registered Respiratory Therapist) [facility] Department of Respiratory Long Term Oxygen Evaluation (Evaluation is valid for 48 hours once completed) Date: 08/14/2012 RT: BABAR HOWARD Time: 10:32 AM Home O2 Eval at rest-Part 1 At rest & breathing room air is the patients SpO2 88% or lower? : No Lowest observed SpO2 at rest: 94 percent Home O2 Eval during exercise-Part 2 With exercise & breathing room air is the patients SpO2 88% or lower? : No Lowest observed SpO2 with exercise: 95 percent Eval comment: pt ambulates quickly with no SOB noted. HOME OXYGEN PROVIDER PREFERENCE PHONE FAX *NOTE* Provider must include liter flow, route of oxygen administration, frequency of use w ith duration of need in months on the prescription AND document patient s diagnosis. OXYGEN PRN IS NOT A VALID ORDER Physician Signature: Date: Time: onver ivana Transaction, Provider Unknown - 08/14/2012 9:12 AM PDT Progress Notes by QUINN Bansal at 08/14/12911 Author: QUINN Bansal Service: (none) Author Type: Valve Machine Operator Filed: 08/14/12911 Date of Service: 08/14/12911 Status: Signed Vaccine Specialist: QUINN Bansal (Valve Machine Operator) CM faxed pt's updated info to [facility] and will continue to follow. CM will arrange transpor tation upon discharge. Pt had no other resource concerns at this time. Discharge Plan: [facility]ING[facility] uMylene terrazas DO - 08/14/2012 9:10 AM PDTFormatting of this note might be different from guillermina bonilla original. Progress Notes by Mylene Key DO at 08/14/12909 Author: Mylene Key DO Service: General Surgery Author Type: Physician Filed: 08/14/12910 Date of Service: 08/14/12909 Status: Signed Vaccine Specialist: Mylene Key DO (Physician) HIDA scan normal. No need for surgery, even as an outpatient. No FU with me needed. MYLENE KEY aleria Cortez MD - 08/13/2012 6:36 PM PDT Progress Notes by Valeria Cortez MD at 08/13/121835 Author: Valeria Cortez MD Service: (none) Author Type: Physician Filed: 08/13/121900 Date of Service: 08/13/121835 Status: Addendum Vaccine Specialist: Valeria Cortez MD (Physician) Related Notes: Original Note by Valeria Cortez MD (Physician) filed at 08/13/121858 [facility] Service: Pulmonology Progress Note Hospital Day: LOS: 2 days Post-Op Day: * No surgery found * SUBJECTIVE Events Overnight: The patient's breathing is much improved. He is off BiPAP (except a t night) and on 4L O2 NC currently. His RUQ pain is much improved. He briefly was in paroxys mal atrial fibrillation with RVR. He was asymptomatic. He is in lesser pain and is taking de eper breaths. He is in good spirits talking to his [place] brother over the phone. He is l ooking forward to going home tomorrow. Scheduled Medications ARIPiprazole 10 mg Oral Daily atenolol 100 mg Oral Daily diltiazem 240 mg Oral Daily fluticasone-salmeterol 1 puff Inhalation 2 times daily heparin (porcine) 5,000 Units Subcutaneous Q8H insulin aspart 0-3 Units Subcutaneous Nightly insulin aspart 0-6 Units Subcutaneous TID AC ipratropium-albuterol 3 mL Nebulization Q6H lactobacillus 1 packet Oral TID omeprazole 20 mg Oral QAM AC Or pantoprazole 40 mg Intravenous QAM AC paroxetine 40 mg Oral QAM pneumococcal 23-valent vaccine 0.5 mL Intramuscular Once Immunization potassium chloride 40 mEq Oral Once pravastatin 20 mg Oral Nightly tamsulosin 0.4 mg Oral after dinner DISCONTD: cefTRIAXone 1 g Intravenous Q24H DISCONTD: metronidazole 500 mg Intravenous Q8H Continuous Infusions dextrose DISCONTD: sodium chloride 75 mL/hr at 08/13/12 0625 PRN Medications acetaminophen, acetaminophen, dextrose, dextrose, dextrose, glucagon, glucagon, hydrALAZINE , ketorolac, ondansetron, ondansetron, polyethylene glycol, sincalide in NS, DISCONTD: HYDRO morphone OBJECTIVE Vital Signs: Filed Vitals: 08/13/12 1000 08/13/12 1127 08/13/12 1555 08/13/12 1624 BP: 162/60 173/74 Pulse: 68 62 61 60 Temp: 97.6 F (36.4 C) TempSrc: Oral Resp: 20 17 18 17 Height: Weight: SpO2: 92% 95% 96% Body mass index is 36.18 kg/(m^2). General Appearance: Alert and oriented, cooperative, no distress, appears stated age Head: Normocephalic, atraumatic Eyes: PERRL, conjunctiva/corneas clear, EOM's intact Ears: Normal external ear canals, both ears Nose: No drainage or sinus tenderness, O2 by nasal cannula Throat: Lips, mucosa, and tongue normal Neck: Supple, symmetrical, trachea midline, no tracheal tug, no adenopathy; no carotid bruit or J VD Back: Symmetric, no curvature, no CVA tenderness Lungs: Occasional wheezes to auscultation bilaterally, respirations unlabored Chest Wall: No tenderness or deformity Heart: Normal rate, regular rhythm, S1 and S2 normal, no murmur, rub or gallop Abdomen: Soft, non-tender, bowel sounds normoactive, no masses, no organomegaly Extremities: Extremities normal, atraumatic, no cyanosis or edema, right arm peripheral iv in place, SCD in lower extremities Pulses: 2+ and symmetric all extremities Skin: Skin color, texture, turgor normal, no rashes or lesions, left shoulder wound Lymph nodes: Cervical and supraclavicular nodes normal Neurologic: CNII-XII intact, normal strength, sensation and reflexes throughout DATA CBC: Lab Results Component Value Date WBC 11.7* 08/13/2012 RBC 4.07* 08/13/2012 HGB 11.7* 08/13/2012 HCT 35.1* 08/13/2012 MCV 86.2 08/13/2012 MCH 28.8 08/13/2012 MCHC 33.5 08/13/2012 RDW 43.3 08/13/2012 PLT 194 08/13/2012 MPV 7.4 08/13/2012 DIFFTYPE AUTOMATED 08/13/2012 CMP: Lab Results Component Value Date NA 139 08/13/2012 K 3.5 08/13/2012 CL 105 08/13/2012 CO2 31 08/13/2012 ANIONGAP 7 08/13/2012 GLUF 127* 08/13/2012 BUN 16 08/13/2012 CREATININE 0.86 08/13/2012 BCR 19 08/13/2012 CA 8.9 08/13/2012 PROT 5.6* 08/13/2012 ALB 3.1* 08/13/2012 GLOB 2.5 08/13/2012 BILITOT 0.3 08/13/2012 ALP 64 08/13/2012 AST 15 08/13/2012 ALT 10 08/13/2012 EGFR >60 08/13/2012 Magnesium: Lab Results Component Value Date MG 1.8 08/13/2012 Phosphorus: Lab Results Component Value Date PHOS 3.4 08/13/2012 PT/INR: Lab Results Component Value Date INR 1.1 08/12/2012 PTT: Lab Results Component Value Date APTT 25 03/15/2012 [APTT U/A: Lab Results Component Value Date COLORU See POC results 08/11/2012 CLARITYU CLEAR 08/11/2012 NITRITE NEGATIVE 08/11/2012 UROBILINOGEN 0.2 08/11/2012 PHUR 5.5 08/11/2012 BILIRUBINUR NEGATIVE 08/11/2012 ABG: Lab Results Component Value Date POCPH 7.337* 08/12/2012 POCPCO 57* 08/12/2012 POCPO2 79* 08/12/2012 POCHCO 30* 08/12/2012 POCTCO2 32* 08/12/2012 BEART 5* 08/12/2012 POCSO2 94* 08/12/2012 POCCMT Tidal Volume = 14 08/12/2012 HgBA1c: Lab Results Component Value Date HGBA1C 6.9* 08/11/2012 LABGLYC 151 08/11/2012 TSH: Lab Results Component Value Date TSH 3.72 08/13/2012 Lab Results Component Value Date/Time BNP 33.9 08/13/2012 3:50 AM BNP 7.8 08/11/2012 5:00 PM ASSESSMENT Anxiety/Depression HTN, uncontrolled T2DM Cholelithiasis Fatty liver Obesity with WARD, 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 Patient's sleep studies will shed information on his prescribed pressure. His PAP intolerance may be with the press ure and/or the interface. He returned the PAP unit due to financial constraint. Avoid narcotic analgesics due to CO2 retention. KCl 40 meq po x 1 dose. Day 3 Rocephin and Flagyl. Continue Lactobacillus one tablet po tid with meals to prevent antibiotic-associated diarrh ea. Fall precautions. Continue PT/OT treatment to increase activities of daily living. Aspiration precautions. HOB elevated at 30-45 degrees. Strict I/O. Daily weights. DVT prophylaxis. GI prophylaxis. Continue Advair 500/50 BID. Gargle after use. Continue Duoneb every 6 hours. Deliver nebs via IPV if tolerated. Chest PT BID. May use VEST if applicable and tolerated. Incentive spirometry x 5 minutes q 4 hr while awake. Titrate FiO2 to keep saturation above 88%. Humidify FiO2 at all times. Home O2 evaluation on the day of discharge. Obtain old PFTs for baseline if previously done. Complete PFTs as an outpatient for comparison. Pneumovax ordered. Disposition: [facility] on [address] Code Status: Full Code VALERIA CORTEZ MD 08/13/2012 6:59 PM unnage, Mylene De León DO - 08/13/2012 1:21 PM PDT Progress Notes by Mylene Key DO at 08/13/12 1321 Author: Mylene Key DO Service: General Surgery Author Type: Physician Filed: 08/13/12 1322 Date of Service: 08/13/121320 Status: Signed Vaccine Specialist: Mylene Key DO (Physician) [facility] Service: General Surgery Progress Note Hospital Day: LOS: 2 days Post-Op Day: * No surgery found * Chief complaint: Abdominal pain SUBJECTIVE Events Overnight: None. Breathing improved. Scheduled Medications ARIPiprazole 10 mg Oral Daily atenolol 100 mg Oral Daily diltiazem 240 mg Oral Daily fluticasone-salmeterol 1 puff Inhalation 2 times daily heparin (porcine) 5,000 Units Subcutaneous Q8H insulin aspart 0-3 Units Subcutaneous Nightly insulin aspart 0-6 Units Subcutaneous TID AC ipratropium-albuterol 3 mL Nebulization Q6H lactobacillus 1 packet Oral TID omeprazole 20 mg Oral QAM AC Or pantoprazole 40 mg Intravenous QAM AC paroxetine 40 mg Oral QAM pneumococcal 23-valent vaccine 0.5 mL Intramuscular Once Immunization pravastatin 20 mg Oral Nightly tamsulosin 0.4 mg Oral after dinner DISCONTD: cefTRIAXone 1 g Intravenous Q24H DISCONTD: metronidazole 500 mg Intravenous Q8H Continuous Infusions dextrose DISCONTD: sodium chloride 75 mL/hr at 08/13/12 0625 PRN Medications acetaminophen, acetaminophen, dextrose, dextrose, dextrose, glucagon, glucagon, hydrALAZINE , ketorolac, ondansetron, ondansetron, polyethylene glycol, DISCONTD: HYDROmorphone OBJECTIVE Vital Signs: BP 162/60 | Pulse 62 | Temp 97.6 F (36.4 C) (Oral) | Resp 17 | Ht 1.803 m (5' 11") | Wt 117.663 kg (259 lb 6.4 oz) | BMI 36.18 kg/m2 | SpO2 92% Patient Vitals for the past 24 hrs: BP Temp Temp src Pulse Resp SpO2 Weight 08/13/12 1127 - - - 62 17 92 % - 08/13/12 1000 162/60 mmHg - - 68 20 - - 08/13/12 0737 200/90 mmHg 97.6 F (36.4 C) Oral 108 20 93 % - 08/13/12 0558 - - - - - - 117.663 kg (259 lb 6.4 oz) 08/13/12 0439 110/53 mmHg 97.9 F (36.6 C) Oral 79 18 92 % - 08/13/12 0425 - - - 81 18 94 % - 08/13/12 0300 183/80 mmHg 98.7 F (37.1 C) Oral 74 18 91 % - 08/12/12 2313 194/77 mmHg 98.9 F (37.2 C) Oral 79 18 94 % - 08/12/12 2140 174/79 mmHg - - - - 94 % - 08/12/127 - - - 80 18 93 % - 08/12/12 2040 200/92 mmHg - - - - - - 08/12/12 1928 - 99.5 F (37.5 C) Oral 72 18 92 % - 08/12/12 1536 179/80 mmHg 97.1 F (36.2 C) Axillary 67 16 95 % - 08/12/12 1503 - - - 55 17 95 % - Constitutional: Alert, cooperative, no distress Respiratory: Respirations unlabored Cardiovascular: Regular rate, Abdomen: Psychiatric: Soft, non-tender Affect normal DATA CBC: Lab Results Component Value Date WBC 11.7* 08/13/2012 RBC 4.07* 08/13/2012 HGB 11.7* 08/13/2012 HCT 35.1* 08/13/2012 MCV 86.2 08/13/2012 MCH 28.8 08/13/2012 MCHC 33.5 08/13/2012 RDW 43.3 08/13/2012 PLT 194 08/13/2012 MPV 7.4 08/13/2012 DIFFTYPE AUTOMATED 08/13/2012 CMP: Lab Results Component Value Date NA 139 08/13/2012 K 3.5 08/13/2012 CL 105 08/13/2012 CO2 31 08/13/2012 ANIONGAP 7 08/13/2012 GLUF 127* 08/13/2012 BUN 16 08/13/2012 CREATININE 0.86 08/13/2012 BCR 19 08/13/2012 CA 8.9 08/13/2012 PROT 5.6* 08/13/2012 ALB 3.1* 08/13/2012 GLOB 2.5 08/13/2012 BILITOT 0.3 08/13/2012 ALP 64 08/13/2012 AST 15 08/13/2012 ALT 10 08/13/2012 EGFR >60 08/13/2012 Hepatic Function Panel: Lab Results Component Value Date PROT 5.6* 08/13/2012 ALB 3.1* 08/13/2012 BILITOT 0.3 08/13/2012 ALP 64 08/13/2012 AST 15 08/13/2012 ALT 10 08/13/2012 PROBLEM LIST Active Problems: Diabetes mellitus type II HTN (hypertension) RUQ pain Cholelithiases Hypoxia WARD (obstructive sleep apnea) CO2 retention Respiratory acidosis ASSESSMENT & PLAN Abdominal pain, likely secondary to falling on R side, Acute Cholecystitis not excluded. HIDA scan ordered for today. Further recommendations pending HIDA result. Disposition: Stable Code Status: Full Code MYLENE KEY DO 08/13/2012 Erasto Swann DO - 08/13/2012 12:32 PM PDT Progress Notes by Erasto Bautista DO at 08/13/12 1232 Author: Erasto Bautista DO Service: (none) Author Type: Physician Filed: 08/13/12 1246 Date of Service: 08/13/12 123 Status: Signed Vaccine Specialist: Erasto Bautista DO (Physician) [facility] Service: Hospitalist Progress Note Hospital Day: LOS: 2 days SUBJECTIVE 56 year old presented with RUQ pain and found to have cholelithiasis and leukocytosis. He w as thought to possibly have acute cholecystitis and was admitted to hospitalists with Dr Edmundo eubanks consulting. Empiric ceftriaxone and metronidazole were started. The patient was having respiratory difficulty, however, and ABG showed respiratory acidosis with CO2 retention, and exam was notable for expiratory wheezing. Further evaluation was not consistent with acute cholecystitis, and patient actually reported having an injury to his abdomen related to a fa ll. He was placed on bipap with rapid improvement of the resp acidosis. Narcotics were kept to a minimum because of the resp acidosis. Duonebs were also given. Dr Cortez was consulted, as patient has no history of lung disease. Advair was also started. The patient is noncompliant with CPAP therapy for WARD. Dr Key evaluated the patient and recommended HIDA scan once patient could tolerate, george athing-kwong. The patient's breathing is much improved today and I am ordering the HIDA scan. He is off bipap (except at night) and on 4L O2 NC currently. At this point, from my perspec tive, the patient's problems seem to be primarily pulmonary in nature. His RUQ pain is much improved. If the HIDA is negative then further surgical evaluations can likely be postponed to future outpatient follow up while his pulmonary function gets improved in the meantime. The patient was noted to briefly have Afib with RVR today. It was transient and HR back to normal when I came to re-evaluate the patient. He was asymptomatic. He has history of atrial fibrillation. His atenolol and cardizem are being continued. Scheduled Medications ARIPiprazole 10 mg Oral Daily atenolol 100 mg Oral Daily diltiazem 240 mg Oral Daily fluticasone-salmeterol 1 puff Inhalation 2 times daily heparin (porcine) 5,000 Units Subcutaneous Q8H insulin aspart 0-3 Units Subcutaneous Nightly insulin aspart 0-6 Units Subcutaneous TID AC ipratropium-albuterol 3 mL Nebulization Q6H lactobacillus 1 packet Oral TID omeprazole 20 mg Oral QAM AC Or pantoprazole 40 mg Intravenous QAM AC paroxetine 40 mg Oral QAM pneumococcal 23-valent vaccine 0.5 mL Intramuscular Once Immunization pravastatin 20 mg Oral Nightly tamsulosin 0.4 mg Oral after dinner DISCONTD: cefTRIAXone 1 g Intravenous Q24H DISCONTD: metronidazole 500 mg Intravenous Q8H Continuous Infusions dextrose DISCONTD: sodium chloride 75 mL/hr at 08/13/12 0625 PRN Medications acetaminophen, acetaminophen, dextrose, dextrose, dextrose, glucagon, glucagon, hydrALAZINE , ketorolac, ondansetron, ondansetron, polyethylene glycol, DISCONTD: HYDROmorphone, DISCONT D: HYDROmorphone OBJECTIVE Vital Signs: BP 162/60 | Pulse 62 | Temp 97.6 F (36.4 C) (Oral) | Resp 17 | Ht 1.803 m (5' 11") | Wt 117.663 kg (259 lb 6.4 oz) | BMI 36.18 kg/m2 | SpO2 92% Patient Vitals for the past 24 hrs: BP Temp Temp src Pulse Resp SpO2 Weight 08/13/12 1127 - - - 62 17 92 % - 08/13/12 1000 162/60 mmHg - - 68 20 - - 08/13/12 0737 200/90 mmHg 97.6 F (36.4 C) Oral 108 20 93 % - 08/13/12 0558 - - - - - - 117.663 kg (259 lb 6.4 oz) 08/13/12 0439 110/53 mmHg 97.9 F (36.6 C) Oral 79 18 92 % - 08/13/12 0425 - - - 81 18 94 % - 08/13/12 0300 183/80 mmHg 98.7 F (37.1 C) Oral 74 18 91 % - 08/12/12 2313 194/77 mmHg 98.9 F (37.2 C) Oral 79 18 94 % - 08/12/12 2140 174/79 mmHg - - - - 94 % - 08/12/127 - - - 80 18 93 % - 08/12/12 2040 200/92 mmHg - - - - - - 08/12/12 1928 - 99.5 F (37.5 C) Oral 72 18 92 % - 08/12/12 1536 179/80 mmHg 97.1 F (36.2 C) Axillary 67 16 95 % - 08/12/12 1503 - - - 55 17 95 % - Physical Exam Vitals reviewed. Constitutional: He is oriented to person, place, and time. No distress. obese HENT: Head: Normocephalic and atraumatic. Mouth/Throat: Oropharynx is clear and moist. Eyes: Conjunctivae are normal. No scleral icterus. Neck: Normal range of motion. Neck supple. JVD couldn't be assessed due to obesity Cardiovascular: Normal rate, regular rhythm, normal heart sounds and intact distal pulses. No murmur heard. Pulmonary/Chest: Effort normal. He has no rales. He exhibits no tenderness. Shallow breathing + expiratory wheezes Abdominal: Soft. Bowel sounds are normal. There is no rebound. Obesity limits exam + TTP diffusely Musculoskeletal: Normal range of motion. He exhibits no edema and no tenderness. Neurological: He is alert and oriented to person, place, and time. Skin: Skin is warm and dry. No rash noted. He is not diaphoretic. No erythema. No pallor. DATA CBC: Lab Results Component Value Date WBC 11.7* 08/13/2012 RBC 4.07* 08/13/2012 HGB 11.7* 08/13/2012 HCT 35.1* 08/13/2012 MCV 86.2 08/13/2012 MCH 28.8 08/13/2012 MCHC 33.5 08/13/2012 RDW 43.3 08/13/2012 PLT 194 08/13/2012 MPV 7.4 08/13/2012 DIFFTYPE AUTOMATED 08/13/2012 CMP: Lab Results Component Value Date NA 139 08/13/2012 K 3.5 08/13/2012 CL 105 08/13/2012 CO2 31 08/13/2012 ANIONGAP 7 08/13/2012 GLUF 127* 08/13/2012 BUN 16 08/13/2012 CREATININE 0.86 08/13/2012 BCR 19 08/13/2012 CA 8.9 08/13/2012 PROT 5.6* 08/13/2012 ALB 3.1* 08/13/2012 GLOB 2.5 08/13/2012 BILITOT 0.3 08/13/2012 ALP 64 08/13/2012 AST 15 08/13/2012 ALT 10 08/13/2012 EGFR >60 08/13/2012 === === XR CHEST 2 VIEW FRONTAL AND LATERAL 08/11/2012 8:55 PM HISTORY: Shortness of breath. TECHNIQUE: Two views of the chest. FINDINGS: Compared with March 16, 2012. The heart is mildly enlarged. No acute infiltrates or angie dence of edema. No pneumothorax or pleural effusions. There is mild thoracic spondylosis n oted. IMPRESSION: 1. Mild cardiomegaly. No acute lung disease identified. === === LIMITED RIGHT UPPER QUADRANT ABDOMEN ULTRASOUND EXAM DATE: 08/11/2012 07:04 PM. CLINICAL HISTORY: Right upper quadrant pain for 1 day. COMPARISON: None. TECHNIQUE: Real-time scanning was performed with static images obtained. FINDINGS: Liver: Suboptimal evaluation, no definite mass. The echotexture is moderately echogenic. Gallbladder: A single small mobile gallbladder stone is present. Sludge is present within t he lumen. No wall thickening evident. Patient is focally tender over the gallbladder. Cannot exclude additional stone in gallbladder neck on this exam. Biliary System: Suboptimally visualized secondary to overlying bowel gas. The common bile duct measures approximately 8 mm maximally. Pancreas: Suboptimal evaluation secondary to overlying bowel gas. Kidneys: Right: An exophytic cyst about the lower pole measures 2.7 cm. No solid masses. No hydronep hrosis. IMPRESSION: 1. Very limited evaluation secondary to body habitus and bowel gas. 2. Liver moderately fatty infiltrated. 3. Single mobile gallbladder stone present as well as possible additional stone within the gallbladder neck, although this is uncertain. No wall thickening evident, although patient i s focally tender over the gallbladder. These findings are equivocal for early acute cholecys titis. Nuclear medicine DISIDA scan imaging could be considered. RADIA Electronically signed by Brianda Marsh MD on Aug 11 2012 8:52PM PROBLEM LIST Active Problems: Diabetes mellitus type II HTN (hypertension) RUQ pain Cholelithiases Hypoxia WARD (obstructive sleep apnea) CO2 retention Respiratory acidosis ASSESSMENT & PLAN Patient Active Hospital Problem List: Cholelithiases with RUQ pain (08/11/2012) RUQ pain improved. Check HIDA scan. Will seek Dr Key's recommendation if positive. If n egative then the patient can likely follow up with outpatient providers for further manageme nt of cholelithiasis. I am stopping antibiotics (ceftriaxone, metronidazole) today, we will see how he does. Respiratory acidosis, CO2 retention, wheezing, hypoxia Constellation of findings are consistent with COPD, though patient gives no history of it. I've asked Dr Valeria Cortez to evaluate patient. Advair has been added to q6 hour duonebs. Patie nt's breathing is improving. He is going to need rx's for outpatient inhaler treatments, pos sibly a nebulizer. WARD (obstructive sleep apnea) (08/11/2012) The patient can follow up with Dr Cortez or with Dr Benson. He may be willing to give the CPAP another try. Diabetes mellitus type II () Insulins, monitor blood glucose levels. HTN (hypertension) (09/24/2011) Atenolol and cardizem continued, monitor BP's. Atrial fibrillation Currently rate controlled except for one noted transient burst of RVR which was asymptomati c. Continue atenolol and cardizem. Monitor on telemetry. Disposition: inpatient Code Status: Full Code Erasto Bautista DO 08/13/2012 12:32 PM onversion Transaction , Provider Unknown - 08/13/2012 10:58 AM PDT Progress Notes by TORY Chavira at 08/13/12 1058 Author: TORY Chavira Service: (none) Author Type: Occupational Therapist Filed: 08/13/12 2809 Date of Service: 08/13/12 1058 Status: Signed Vaccine Specialist: TORY Chavira (Occupational Therapist) 08/13/12 1058 Precautions Other Precautions fall precautions Home Environment Type of Home Assisted living Home Exterior Layout Entry steps none Home Interior Layout Lives on main level with bedroom/bathroom Bathroom Shower/Tub Tub/shower unit Bathroom Toilet Raised Bathroom Equipment Grab bars in shower/bath;Grab bars outside of shower/bath;Grab bars at t oilet;Hand-held shower head Bathroom Accessibility Accessible via walker Home Equipment None Additional Comments 2L of O2 at 92% in hospital. Pt reported was on oxygen at home, but pt quit wearing it. Prior Function Level of Bertie Independent with ADLs;Independent with IADLs;Independent with functi onal mobility Lives With Alone Receives Help From Community agency ADL Assistance Independent Home ADL's Other (comment) (needs assistance with IADLs) Employment Retired for age Leisure Hobbies-yes (Comment) (arts and [employer], [employer], [employer],) Comments pt. uses [employer]-ride for transportation. Receives assist for laundry, med manageme nt from staff ADL Additional Comments Provided pt. with AE handout and recommendations to increase safety and independence during ADLs. Pt. stated understanding. Pt. also has [facility] staff to assist in ADL s. Pt. has no further concerns at this time and therefore discharged from skilled OT service s. Pain Screening Currently in Pain No/denies Vision-Basic Assessment Current Vision Wears glasses;Reading glasses Cognition Overall Cognitive Status WFL Orientation Level Oriented Sensation Light Touch No apparent deficits RUE Assessment RUE Assessment WFL LUE Assessment LUE Assessment WFL Hand Function Gross Grasp Functional Functional Gross Grasp Able to grasp objects without difficulty (Pt. Right handed) Coordination Functional onver ivana Transaction, Provider Unknown - 08/13/2012 10:48 AM PDT Progress Notes by Barbara Dempsey PT at 08/13/12 1048 Author: Barbara Dempsey PT Service: (none) Author Type: Physical Therapist Filed: 08/13/12 1048 Date of Service: 08/13/12 1048 Status: Signed Vaccine Specialist: Barbara Dempsey PT (Physical Therapist) 08/13/12 1024 PT Last Visit PT Received On 08/13/12 Requires PT Follow Up No PT Eval/Reassessment Date 08/13/12 Precautions Other Precautions fall precautions Other Comments Comments 56 y/o male admitted for RUQ pain. Pt states pain still occurs, but is improved. H e states he just moved into [facility] about 6 weeks ago, after living by himself. He was having tr ouble caring for himself. 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 Pt does get SOB ea sily & would benefit from 4ww to increase safety w/amb and allow for pt to sit when increase SOB occurs. No further skilled PT needs at this time. Cognition Overall Cognitive Status WFL Orientation Level Oriented Bed Mobility Supine to Sit Modified independent Sit to Supine Independent Transfers Sit to/from Stand Modified independent Bed to/from Chair Modified independent Mobility Ambulation Assistance Supervision Maximal Ambulation Distance (feet) 300 Total Ambulation Distance (feet) 300 Distance limited by? Therapist/staff discretion Pattern Alternating Assistive Device Walker 4 wheeled Activity Tolerance Activity Tolerance Patient tolerated treatment without report of fatigue Nurse Made Aware RN Yojana notified Safety Devices Safety Devices in Place Not applicable Plan Treatment/Interventions Discharge skilled PT services PT Frequency Evaluation only Requires PT Follow Up No Recommendation Recommendations Return to prior living situation Equipment Recommended Walker 4 wheeled Recommendation Comments 4ww would benefit pt d/t his increasing SOB & decrease balance & re cent fall. The 4ww vs fww because it allows pt to sit when increase SOB occurs. onver ivana Transaction, Provider Unknown - 08/13/2012 10:46 AM PDT Progress Notes by Barbara Dempsey PT at 08/13/12 1046 Author: Barbara Dempsey PT Service: (none) Author Type: Physical Therapist Filed: 08/13/12 1046 Date of Service: 08/13/12 1046 Status: Signed Vaccine Specialist: Barbara Dempsey PT (Physical Therapist) 08/13/12 1024 PT Last Visit PT Received On 08/13/12 Requires PT Follow Up No PT Eval/Reassessment Date 08/13/12 Requires PT Follow Up No Precautions Other Precautions fall precautions Plan Treatment/Interventions Discharge skilled PT services PT Frequency Evaluation only Home Environment Type of Home Assisted living Home Exterior Layout Entry steps none Home Interior Layout Lives on main level with bedroom/bathroom Bathroom Shower/Tub Tub/shower unit Bathroom Toilet Raised Bathroom Equipment Grab bars in shower/bath;Grab bars outside of shower/bath;Grab bars at t oilet;Hand-held shower head Bathroom Accessibility Accessible via walker Home Equipment None Recommendation Recommendations Return to prior living situation Equipment Recommended Walker 4 wheeled Recommendation Comments 4ww would benefit pt d/t his increasing SOB & decrease balance & re cent fall. The 4ww vs fww because it allows pt to sit when increase SOB occurs. Prior Function Level of Bertie Independent with functional mobility;Independent with ADLs;Modified independent with IADLs Lives With Alone Receives Help From Community agency ADL Assistance Independent Home ADL's Independent RUE Assessment RUE Assessment WFL LUE Assessment LUE Assessment WFL RLE Assessment RLE Assessment WFL LLE Assessment LLE Assessment WFL Cognition Overall Cognitive Status WFL Orientation Level Oriented Sensation Light Touch No apparent deficits Perception Inattention/Neglect Appears intact Proprioception Proprioception No apparent deficit Vision-Basic Assessment Current Vision Reading glasses Safety Devices Safety Devices in Place Not applicable onver ivana Transaction, Provider Unknown - 08/12/2012 12:55 PM PDT Progress Notes by Devin Liriano RN at 08/12/12 1255 Author: Devin Liriano RN Service: (none) Author Type: Registered Nurse Filed: 08/12/12 1255 Date of Service: 08/12/12 125 Status: Signed Vaccine Specialist: Devin Liriano RN (Registered Nurse) Dr. Bautista requested pt's BIPAP removed and O2 via NC applied. Pt on 4L NC, maintaining oxyg en saturation 94-95%. Pt placed on diabetic diet, lunch ordered and ice water at bedside. Pt c/o pain, medicated with 0.5mg Dilaudid. Marginal improvement. Dr. Bautista notified, Toradol ordered. Will continue to monitor. rasto Bautista DO - 08/12/2012 12:11 PM PDTFormatting of this note might be different from the bobbi ginal. Progress Notes by Erasto Bautista DO at 08/12/12 1211 Author: Erasto Bautista DO Service: (none) Author Type: Physician Filed: 08/12/12 1246 Date of Service: 08/12/12 1211 Status: Signed Vaccine Specialist: Erasto Bautista DO (Physician) [facility] Service: Hospitalist Progress Note Hospital Day: LOS: 1 day SUBJECTIVE Patient seen/examined, breathing comfortably on bipap. Complains of ongoing RUQ pain. Carole s history of lung problems or use of inhalers at home. States that he has been wheezing "all his life", never saw a lung doctor before to his knowledge. He has, however, seen Dr Benson in the past. He hasn't seen him for about 9 months. He did have a sleep study there. He hasn't used his CPAP machine for 9 months because he couldn't t olerate it. Scheduled Medications ARIPiprazole 10 mg Oral Daily atenolol 100 mg Oral Daily cefTRIAXone 1 g Intravenous Q24H diltiazem 240 mg Oral Daily heparin (porcine) 5,000 Units Subcutaneous Q8H HYDROmorphone 1 mg Intravenous Once insulin aspart 0-3 Units Subcutaneous Nightly insulin aspart 0-6 Units Subcutaneous TID AC ipratropium-albuterol 3 mL Nebulization Q6H metronidazole 500 mg Intravenous Q8H omeprazole 20 mg Oral QAM AC Or pantoprazole 40 mg Intravenous QAM AC ondansetron 4 mg Intravenous Once paroxetine 40 mg Oral QAM pravastatin 20 mg Oral Nightly sodium chloride 2,000 mL Intravenous Once tamsulosin 0.4 mg Oral after dinner DISCONTD: sodium chloride 10 mL Intravenous Q8H Continuous Infusions dextrose sodium chloride 75 mL/hr at 08/11/12 2321 PRN Medications acetaminophen, acetaminophen, dextrose, dextrose, dextrose, glucagon, glucagon, HYDROmorpho ne, ondansetron, ondansetron, polyethylene glycol, DISCONTD: hydrALAZINE, DISCONTD: HYDROmor phone OBJECTIVE Vital Signs: BP 167/88 | Pulse 56 | Temp 96.1 F (35.6 C) (Axillary) | Resp 16 | Ht 1.803 m (5' 11") | Wt 111.131 kg (245 lb) | BMI 34.17 kg/m2 | SpO2 97% Patient Vitals for the past 24 hrs: BP Temp Temp src Pulse Resp SpO2 Height Weight 08/12/12 1057 167/88 mmHg 96.1 F (35.6 C) Axillary 56 16 97 % - - 08/12/12 0832 - - - 46 17 96 % - - 08/12/12 0743 151/64 mmHg 95.9 F (35.5 C) Axillary 51 16 96 % - - 08/12/12 0522 157/99 mmHg - - - - - - - 08/12/12 0330 145/106 mmHg 96.4 F (35.8 C) Axillary 70 16 94 % - - 08/12/12 0229 - - - 57 16 96 % - - 08/11/12 2333 153/89 mmHg 97.1 F (36.2 C) - 60 14 - - - 08/11/12 2322 137/92 mmHg 97.1 F (36.2 C) - 55 14 95 % 1.803 m (5' 11") 111.131 kg (2 45 lb) 08/11/12 2255 137/68 mmHg - - 79 20 94 % - - 08/11/12 2205 177/83 mmHg - - 65 16 95 % - - 08/11/122018 - - - 66 24 94 % - - 08/11/122013 193/86 mmHg 98.2 F (36.8 C) - 82 20 92 % - - 08/11/12 1912 172/78 mmHg - - 65 28 86 % - - 08/11/12 1744 170/78 mmHg - - 52 20 91 % - - 08/11/12 1641 191/92 mmHg 97.2 F (36.2 C) Oral 63 18 96 % 1.803 m (5' 11") 104.327 kg (230 lb) Physical Exam Vitals reviewed. Constitutional: He is oriented to person, place, and time. No distress. obese HENT: Head: Normocephalic and atraumatic. Mouth/Throat: Oropharynx is clear and moist. Eyes: Conjunctivae are normal. No scleral icterus. Neck: Normal range of motion. Neck supple. JVD couldn't be assessed due to obesity Cardiovascular: Normal rate, regular rhythm, normal heart sounds and intact distal pulses. No murmur heard. Pulmonary/Chest: Effort normal. He has no rales. He exhibits no tenderness. Shallow breathing + expiratory wheezes Abdominal: Soft. Bowel sounds are normal. There is no rebound. Obesity limits exam + TTP diffusely Musculoskeletal: Normal range of motion. He exhibits no edema and no tenderness. Neurological: He is alert and oriented to person, place, and time. Skin: Skin is warm and dry. No rash noted. He is not diaphoretic. No erythema. No pallor. DATA CBC: Lab Results Component Value Date WBC 12.3* 08/12/2012 RBC 4.25 08/12/2012 HGB 12.2* 08/12/2012 HCT 37.2* 08/12/2012 MCV 87.4 08/12/2012 MCH 28.8 08/12/2012 MCHC 32.9 08/12/2012 RDW 45.5 08/12/2012 PLT 261 08/12/2012 MPV 7.0 08/12/2012 DIFFTYPE AUTOMATED 08/12/2012 CMP: Lab Results Component Value Date NA 138 08/12/2012 K 4.1 08/12/2012 CL 106 08/12/2012 CO2 29 08/12/2012 ANIONGAP 7 08/12/2012 GLUF 144* 08/12/2012 BUN 17 08/12/2012 CREATININE 0.93 08/12/2012 BCR 18 08/12/2012 CA 8.9 08/12/2012 PROT 6.3 08/12/2012 ALB 3.5* 08/12/2012 GLOB 2.8 08/12/2012 BILITOT 0.3 08/12/2012 ALP 61 08/12/2012 AST 16 08/12/2012 ALT 13 08/12/2012 EGFR >60 08/12/2012 === === XR CHEST 2 VIEW FRONTAL AND LATERAL 08/11/2012 8:55 PM HISTORY: Shortness of breath. TECHNIQUE: Two views of the chest. FINDINGS: Compared with March 16, 2012. The heart is mildly enlarged. No acute infiltrates or angie dence of edema. No pneumothorax or pleural effusions. There is mild thoracic spondylosis n oted. IMPRESSION: 1. Mild cardiomegaly. No acute lung disease identified. === === LIMITED RIGHT UPPER QUADRANT ABDOMEN ULTRASOUND EXAM DATE: 08/11/2012 07:04 PM. CLINICAL HISTORY: Right upper quadrant pain for 1 day. COMPARISON: None. TECHNIQUE: Real-time scanning was performed with static images obtained. FINDINGS: Liver: Suboptimal evaluation, no definite mass. The echotexture is moderately echogenic. Gallbladder: A single small mobile gallbladder stone is present. Sludge is present within t he lumen. No wall thickening evident. Patient is focally tender over the gallbladder. Cannot exclude additional stone in gallbladder neck on this exam. Biliary System: Suboptimally visualized secondary to overlying bowel gas. The common bile duct measures approximately 8 mm maximally. Pancreas: Suboptimal evaluation secondary to overlying bowel gas. Kidneys: Right: An exophytic cyst about the lower pole measures 2.7 cm. No solid masses. No hydronep hrosis. IMPRESSION: 1. Very limited evaluation secondary to body habitus and bowel gas. 2. Liver moderately fatty infiltrated. 3. Single mobile gallbladder stone present as well as possible additional stone within the gallbladder neck, although this is uncertain. No wall thickening evident, although patient i s focally tender over the gallbladder. These findings are equivocal for early acute cholecys titis. Nuclear medicine DISIDA scan imaging could be considered. RADIA Electronically signed by Brianda Marsh MD on Aug 11 2012 8:52PM PROBLEM LIST Active Problems: Diabetes mellitus type II HTN (hypertension) RUQ pain Cholelithiases Hypoxia WARD (obstructive sleep apnea) CO2 retention Respiratory acidosis ASSESSMENT & PLAN Patient Active Hospital Problem List: Cholelithiases with RUQ pain (08/11/2012) Could be acute cholecystitis or biliary colic. Dr Key is consulted. He will evaluate pa aki for possible surgery but we will pay more attention to the lungs before taking patient to OR. Meantime he is on empiric IV ceftriaxone and metronidazole, analgesia prn. Monitor CMP, ser ial abd exams. Respiratory acidosis, CO2 retention, wheezing, hypoxia Constellation of findings are consistent with COPD, though patient gives no history of it. I've asked Dr Valeria Cortez to evaluate patient. Meantime we will continue scheduled duonebs. We will request WARD records from Dr Benson's o ffice. WARD (obstructive sleep apnea) (08/11/2012) As per above, Dr Valeria Cortez to see patient, records requested from Dr Benson's office Diabetes mellitus type II () Insulins, monitor blood glucose levels. HTN (hypertension) (09/24/2011) Atenolol and cardizem continued, monitor BP's. Disposition: inpatient Code Status: Full Code Erasto Bautista DO 08/12/2012 12:17 PM onversion Transaction , Provider Unknown - 08/11/2012 11:15 PM PDT Progress Notes by Pepe Xie RPH at 08/11/122314 Author: Pepe Xie RPH Service: (none) Author Type: Pharmacist Filed: 08/11/122314 Date of Service: 08/11/122314 Status: Signed Vaccine Specialist: Pepe Xie RPH (Pharmacist) Note ccl 95.4ml/min meds reviewed Pharmacy will follow [facility] 2315 docume nted in this encounter H&P Notes Elizabeth Ochoa MD - 08/11/2012 10:09 PM PDTFormatting of this note might be different fro m the original. H&P by Elizabeth Ochoa MD at 08/11/122208 Author: Elizabeth Ochoa MD Service: (none) Author Type: Physician Filed: 08/12/121906 Date of Service: 08/11/122208 Status: Signed Vaccine Specialist: Elizabeth Ochoa MD (Physician) [facility] Service: Hospitalist Admission History & Physical Date of Admission: 08/11/2012 Requesting Physician: , Emergency Department Reason for Admission: Early acute cholecystitis, hypoxia, WARD, uncontrolled hypertension History Obtained From: patient, chart review, Quality of history: good CHIEF COMPLAINT:Chief Complaint Chief Complaint Patient presents with Abdominal Pain fall Diarrhea for three days HISTORY OF PRESENT ILLNESS The patient is a 56 y.o. male with significant past medical history of diabetes mellitus t ype 2, hypertension, hyperlipidemia, paroxysmal atrial fibrillation not currently on anticoa gulation, anxiety with depression, obstructive sleep apnea but noncompliant with CPAP. The p atient presented to the ED with right upper quadrant abdominal pain that started this aftern oon after he sustained an accidental fall in the restroom. He rated his right upper quadrant abdominal pain 10/10 at the time of arrival. After receiving Dilaudid, now the pain is 4/10 . It is worse with moving and with deep breathing. He has nausea but no vomiting. No fever o r chills. No prior history of gallstones. No prior history of similar complaints. The pain r adiates to the right scapula. The patient reported accidental fall in the bathroom today. He denied any loss of consciousness. He was not hypoglycemic. He did not have a seizure histor y. He fell on the floor and landed on his abdominal wall. He denied any head, neck or spine injury. No prior history of falls. No other injuries reported. Workup in the ED showed leukocytosis without left shift. He was afebrile and otherwise hemo dynamically stable except uncontrolled hypertension. While in the ED and after the pain medi cation, the patient became hypoxemic with saturations in the high 80s and low 90s. The roberto ent was also wheezy. He received nebulizer treatment, and on 3 L oxygen, now saturating 94%. He denied h/o COPD . Has h/o asthma.Ultrasound of the gallbladder showed 2 stones; one is f ree and one is stuck in the neck of the gallbladder. Significant inflammation of the gallbla dder by itself is not seen. Dr. Flowers has consulted Dr. Key for consult [facility] to [facility] this patient with multiple comorbidities and early acute c holecystitis with hypoxemia. REVIEW OF SYSTEMS Review of Systems CONSTITUTIONAL: No recent change in weight or appetite. No fever or chills. HEENT: Denies any headache, acute vision changes, thrush, odynophagia. Says he has mild int ermittent dysphagia but denies any choking or aspiration recently. NECK:No neck pain or neck stiffness. RESPIRATORY: History of obstructive sleep apnea. Occasionally uses the CPAP. He denies any cough, pleuritic chest pain, shortness of breath. No prior history of pneumonia. CARDIOVASCULAR: No history of IA, congestive heart failure, syncope, arrhythmias. Denies le ft precordial chest pain, jaw pain, arm pain, intrascapular pain. No edema in the lower extr emities, PND or orthopnea. GASTROINTESTINAL: Denies history of GERD. Had 4 to 5 loose watery stools 3 days ago without any GI hemorrhage, now resolved. No bowel movement in the last 2 days. GENITOURINARY: No dysuria, polyuria, hematuria. DERMATOLOGIC: There is a chronic ulcer on his left shoulder for the past 5 years. Per the p atient, had biopsies in the past and is not malignant, and there is no pain or itching aroun d this ulcer. NEUROLOGIC: Denies history of TIAs, strokes or seizures. PSYCHIATRIC: Has history of anxiety and depression. At this time, his mood is not depressed . Past Medical History Diagnosis Date Diabetes mellitus type II Atrial fibrillation Hypertension Hyperlipidemia Anxiety Depression WARD (obstructive sleep apnea) 08/11/2012 Past Surgical History Procedure Date Unlisted procedure arthroscopy Knee surgery Leg surgery LLE Colonoscopy Allergies Allergen Reactions Vitamin B12 Anaphylaxis Prior to Admission medications Medication Sig Start Date End Date Taking? Authorizing Provider ARIPiprazole (ABILIFY) 10 MG tablet Take 10 mg by mouth daily. Yes Historical Provider atenolol (TENORMIN) 100 MG tablet Take by mouth. Yes Historical Provider ATENOLOL PO Take 100 mg [...] Yes Historical Provider METFORMIN HCL PO Take 500 [...] mg by mouth nightly. Yes Historical Provider ranitidine (ZANTAC) 150 MG tablet Take 1 tablet by mouth 2 (two) times daily. 12/13/11 Yes Yaakov Bridges, TAMSULOSIN HCL PO Take 0.4 mg by mouth. Yes Historical Provider triamterene-hydrochlorothiazide (MAXZIDE) 75-50 MG per tablet Take 1 tablet by mouth daily. Yes Historical Provider ziprasidone (GEODON) 40 MG capsule Take 40 mg by mouth 2 (two) times daily with meals. Yes Historical Provider Family History Problem Relation Age of [...] Narrative Lives in [facility]cf, IADL, full code History Smoking status Never Smoker Smokeless tobacco Never Used History Alcohol Use Yes occasional History Drug Use No PHYSICAL EXAM Vital Signs: BP 177/83 | Pulse 65 | Temp 98.2 F (36.8 C) (Oral) | Resp 16 | Ht 1.803 m (5' 11") | Wt 104.327 kg (230 lb) | BMI 32.08 kg/m2 | SpO2 95% Physical Exam GENERAL: The patient is moderately obese, BMI of 32. The patient while sleeping at 45-degre e angle is noted to have significant sleep apnea. On 3 L nasal cannula, saturations range fr om 92% to 94%. He is groggy but easily arousable and oriented x3. HEENT: PERRLA. Extraocular muscles intact. Moist oral mucosa. NECK: Supple. LUNGS: Bilateral scattered end-expiratory wheeze noted, decreased at the bases. No use of a ccessory muscles of respiration. No rales. HEART: Regular. No chest wall tenderness to palpation. ABDOMEN: Tenderness in the right upper quadrant. Bowel sounds are hypoactive. Obese. No gua rding, no rigidity. EXTREMITIES: Bilateral lower extremities: No signs of DVT, cellulitis or ankle edema. BACK: Normal inspection. No point tenderness to the spine. No CVA tenderness. NEUROLOGIC: He is grossly nonfocal. Alert and oriented x3. Gait is not tested. SKIN: Chronic ulcer about the size of a quarter on the left shoulder without local signs of cellulitis and per the patient is chronic. PSYCHIATRIC: Normal mood and affect. DATA CBC: Lab Results Component Value Date WBC 13.1* 08/11/2012 RBC 4.66 08/11/2012 HGB 13.5 08/11/2012 HCT 39.9 08/11/2012 MCV 85.7 08/11/2012 MCH 29.0 08/11/2012 MCHC 33.8 08/11/2012 RDW 42.4 08/11/2012 PLT 296 08/11/2012 MPV 7.5 08/11/2012 DIFFTYPE AUTOMATED 08/11/2012 CMP: Lab Results Component Value Date NA 141 08/11/2012 K 4.1 08/11/2012 CL 104 08/11/2012 CO2 30 08/11/2012 ANIONGAP 12 08/11/2012 GLUF 155* 08/11/2012 BUN 19 08/11/2012 CREATININE 1.05 08/11/2012 BCR 18 08/11/2012 CA 9.4 08/11/2012 PROT 7.4 08/11/2012 ALB 3.6 08/11/2012 GLOB 3.8 08/11/2012 BILITOT 0.3 08/11/2012 ALP 80 08/11/2012 AST 22 08/11/2012 ALT 24 08/11/2012 EGFR >60 08/11/2012 Magnesium: Lab Results Component Value Date MG 1.7 08/11/2012 PT/INR: Lab Results Component Value Date INR 1.0 03/15/2012 PTT: Lab Results Component Value Date APTT 25 03/15/2012 U/A: Lab Results Component Value Date COLORU See POC results 08/11/2012 CLARITYU CLEAR 08/11/2012 NITRITE NEGATIVE 08/11/2012 UROBILINOGEN 0.2 08/11/2012 PHUR 5.5 08/11/2012 BILIRUBINUR NEGATIVE 08/11/2012 ABG: Lab Results Component Value Date POCPH 7.260* 08/11/2012 POCPCO 68* 08/11/2012 POCPO2 88 08/11/2012 POCHCO 31* 08/11/2012 POCTCO2 33* 08/11/2012 BEART 3 08/11/2012 POCSO2 95 08/11/2012 HgBA1c: Lab Results Component Value Date HGBA1C 6.9* 08/11/2012 LABGLYC 151 08/11/2012 Lipase: Lab Results Component Value Date LIPASE 121 08/11/2012 WBC with Differentials: Lab Results Component Value Date NEUTROABS 9.4* 08/11/2012 LYMPHSABS 2.3 08/11/2012 LYMPHOPCT 17.5 08/11/2012 MONOPCT 8.2 08/11/2012 EOSABS 0.3 08/11/2012 EOSPCT 2.7 08/11/2012 BASOSABS 0.0 08/11/2012 BASOPCT 0.2 08/11/2012 CXR. Official report pending Poor inspiration. Mild cardiomegaly. No pneumonia , PTX, or pleural effusion. Ultrasound abdomen, gallbladder [[id number]] Status: Final result Study Result EXAM: LIMITED RIGHT UPPER QUADRANT ABDOMEN ULTRASOUND EXAM DATE: 08/11/2012 07:04 PM. CLINICAL HISTORY: Right upper quadrant pain for 1 day. COMPARISON: None. TECHNIQUE: Real-time scanning was performed with static images obtained. FINDINGS: Liver: Suboptimal evaluation, no definite mass. The echotexture is moderately echogenic. Gallbladder: A single small mobile gallbladder stone is present. Sludge is present within t he lumen. No wall thickening evident. Patient is focally tender over the gallbladder. Cannot exclude additional stone in gallbladder neck on this exam. Biliary System: Suboptimally visualized secondary to overlying bowel gas. The common bile duct measures approximately 8 mm maximally. Pancreas: Suboptimal evaluation secondary to overlying bowel gas. Kidneys: Right: An exophytic cyst about the lower pole measures 2.7 cm. No solid masses. No hydronep hrosis. IMPRESSION: 1. Very limited evaluation secondary to body habitus and bowel gas. 2. Liver moderately fatty infiltrated. 3. Single mobile gallbladder stone present as well as possible additional stone within the gallbladder neck, although this is uncertain. No wall thickening evident, although patient i s focally tender over the gallbladder. These findings are equivocal for early acute cholecys titis. Nuclear medicine DISIDA scan imaging could be considered. RADIA Electronically signed by Brianda Marsh MD on Aug 11 2012 8:52PM Old records : [place] Myocardial Perfusion SPECT (Stress and Rest) [[id number]] Status: Final result Study Result HISTORY: 55-year-old male with chest pain TECHNIQUE: [...] and other disease LEM LIST Principal Problem: *Acute cholecystitis Active Problems: Diabetes mellitus type II HTN (hypertension) Biliary colic Cholelithiases Hypoxia WARD (obstructive sleep apnea) Fall at home Anxiety and depression Abdominal pain, right upper quadrant CO2 retention Respiratory acidosis ASSESSMENT & PLAN 1. Right upper quadrant acute abdominal pain, likely biliary colic with acute early cholecy stitis with leukocytosis. Admit to acute care. Keep the patient n.p.o. Provide supportive ca re with IV hydration, IV antiemetics and IV pain control. Since the patient is diabetic and also has leukocytosis, started empiric antibiotics, Rocephin and Flagyl although on the imag ing there was not much inflammatory change noted in the gallbladder or gas. Dr. Key, gen eral surgeon, will evaluate the patient in the a.m. for acute cholecystitis. If the general surgeon plans to take the patient for surgery, the patient will need pulmonary evaluation gi gregory severe sleep apnea with respiratory acidosis, CO2 retention, going for abdominal surgery close to the diaphragm. The patient had a normal stress test in March 2011. There is no further cardiac workup at this time. Since he has a history of atrial fibrillation, although now he is normal sinus rhythm, will place him on surveillance monitor. 2. Moderate obesity with obstructive sleep apnea and noncompliance with CPAP, now his hypox emic, hypercapnic with respiratory acidosis and CO2 retention. Will place the patient on BiP AP. Repeat ABG at 2 a.m. Tenuous respiratory status with the potential for deterioration. Th e a.m. hospitalist should consult pulmonary. 3. Diabetes mellitus type 2, controlled hyperglycemia without DKA. Hold glipizide and metfo rmin and place on low-dose insulin sliding scale while the patient is n.p.o. 4. Uncontrolled hypertension, possible secondary to pain. Continue home medications. Hydral azine p.r.n. ordered for systolic blood pressure greater than 160. 5. Fall at home, per the patient accidental. No major injuries at this time reported. Follo w the patient. Fall precautions to be maintained at all times. 6. Anxiety and depression. Continue home medications. Mood is stable at this time. 7. Right upper quadrant abdominal pain secondary to cholelithiasis and possible early acute cholecystitis, cannot r/o muscular pain from the fall also contributing. Dilaudid p.r.n. or dered with end-tidal CO2 monitoring. Addendum: 3:20 am ABG at 2:30 am Respiratory acidoses, co2 is improving, but oxygenation has decreased to 88% on fi02 35 %, at this time on pulse ox he is 96 % per RN ESTER, will rpt ABG at 6 am. Addendum: 5:46 am Repeat ABG is better. Disposition: acute care Code Status: Full code Primary Care Physician: JERRELL OCHOA MD 08/11/2012 documented in this e ncounter Consult Notes Conversion Transaction, Provider Unknown - 08/13/2012 5:25 PM PDTFormatting of this note m ight be different from the original. Consults by Evette Walters RN at 08/13/121724 Author: Evette Walters RN Service: Wound/Ostomy Care Author Type: Registered Nurse Filed: 08/13/12 0056 Date of Service: 08/13/121724 Status: Signed Vaccine Specialist: Evette Walters RN (Registered Nurse) Consult Orders: 1. Wound Care Evaluation and Treat [[id number]] ordered by Erasto Bautista DO at 08/12/12 0132 [facility] Service: Wound Care Consult Note Hospital Day: LOS: 2 days Post-Op Day: * No surgery found * SUBJECTIVE Patient Summary: Wound care consulted for eval and treat of an ulcer to left shoulder . Pt states wound started out as a patch of dry skin. He also states that he has had it burn ed off several times but it never heals. OBJECTIVE Wound #1: Classification: atypical lesion Location:left shoulder Drainage Amount:Scant Drainage Type:Serous Wound Odor After Wound is Cleaned:None Periwound Skin:clean dry and intact Wound Size:3 (cm) Length and 3 (cm) Width and protrudes 0.2cm Wound Bed:Moist and Red Wound Exam:open and erythema Wound Infection: none noted PROBLEM LIST Active Problems: Diabetes mellitus type II HTN (hypertension) RUQ pain Cholelithiases Hypoxia WARD (obstructive sleep apnea) CO2 retention Respiratory acidosis ASSESSMENT & PLAN Classification: atypical lesion visual inspection cleansing with wound cleansing solution Covered wound bed with alginate and bordered foam. To be changed every 3 days. Thank you for this consult. Please call if there are any additional questions. Evette Walters RN 5:25 PM 08/13/2012 Mylene Abreu DO - 08/12/2012 5:56 PM PDTFormatting of this note might be different from guillermina bonilla original. Consults by Mylene Key DO at 08/12/12 741 Author: Mylene Key DO Service: General Surgery Author Type: Physician Filed: 08/19/12 1045 Date of Service: 08/12/121755 Status: Signed Vaccine Specialist: Mylene Key DO (Physician) Related Notes: Original Note by Mylene Key DO (Physician) filed at 08/12/12 1800 Consult Orders: 1. Consult to General Surgery [[id number]] ordered by Elizabeth Ochoa MD at 08/11/12 7753 [facility] Service: General Surgery Consult Date of Admission: 08/11/2012 History Obtained From: patient CHIEF COMPLAINT: Abdominal pain Referring provider: Dr. Gabriela MD HISTORY OF PRESENT ILLNESS This is a pleasant 56-year-old male who presents to [facility] with chi ef complaint of right upper quadrant abdominal pain. The patient states that he was trying t o have a bowel movement, was leaning over when he subsequently slipped and fell onto his rig ht side and hit his right upper quadrant up against a bar. He states that this pain has been sort of constant since that time. He states that the pain is approximately 3/10 at present, does not radiate anywhere. Movement exacerbates the pain. Nothing alleviates the pain. It i s not associated with any nausea or vomiting or fevers, chills. He states he has had no prio r episodes of abdominal pain. He was subsequently admitted to the hospital after an ultrasou nd revealed the possibility of cholecystitis. I was counseled to render by surgical opinion. He is also short of breath and per the patient does not have a history of asthma or COPD. REVIEW OF SYSTEMS ROS obtained from patient. Review of Systems - Allergy and Immunology ROS: negative Hematological and Lymphatic ROS: negative Endocrine ROS: negative Breast ROS: negative for breast lumps negative Respiratory ROS: negative Cardiovascular ROS: negative Gastrointestinal ROS: RUQ pain Genito-Urinary ROS: negative Musculoskeletal ROS: negative Neurological ROS: negative Dermatological ROS: negative Past Medical History Diagnosis Date Diabetes mellitus [...] daily. atenolol (TENORMIN) 100 MG tablet Take by mouth. ATENOLOL PO Take 100 mg by mouth. cyanocobalamin 1000 MCG tablet Take 100 mcg by mouth daily. diltiazem (DILACOR XR) 120 MG 24 hr capsule Take 240 mg by mouth daily. fenofibrate (TRIGLIDE) 160 MG tablet Take 160 mg by mouth daily. glipiZIDE (GLUCOTROL) 5 MG tablet Take 5 mg by mouth 2 (two) times daily before meals. METFORMIN HCL PO Take 500 mg by [...] Medications ARIPiprazole 10 mg Oral Daily atenolol 100 mg Oral Daily cefTRIAXone 1 g Intravenous Q24H diltiazem 240 mg Oral Daily fluticasone-salmeterol 1 puff Inhalation 2 times daily heparin (porcine) 5,000 Units Subcutaneous Q8H HYDROmorphone 1 mg Intravenous Once insulin aspart 0-3 Units Subcutaneous Nightly insulin aspart 0-6 Units Subcutaneous TID AC ipratropium-albuterol 3 mL Nebulization Q6H lactobacillus 1 packet Oral TID metronidazole 500 mg Intravenous Q8H omeprazole 20 mg Oral QAM AC Or pantoprazole 40 mg Intravenous QAM AC paroxetine 40 mg Oral QAM pneumococcal 23-valent vaccine 0.5 mL Intramuscular Once Immunization pravastatin 20 mg Oral Nightly sodium chloride 2,000 mL Intravenous Once tamsulosin 0.4 mg Oral after dinner DISCONTD: sodium chloride 10 mL Intravenous Q8H Continuous Infusions dextrose sodium chloride 75 mL/hr at 08/11/12 2321 PRN Medications acetaminophen, acetaminophen, dextrose, dextrose, dextrose, glucagon, glucagon, HYDROmorpho ne, ketorolac, ondansetron, ondansetron, polyethylene glycol, DISCONTD: hydrALAZINE, DISCONT D: HYDROmorphone, DISCONTD: HYDROmorphone Family History Problem Relation Age of Onset [...] Narrative Lives in chcf, IADL, full code PHYSICAL EXAM Vital Signs: BP 179/80 | Pulse 67 | Temp 97.1 F (36.2 C) (Axillary) | Resp 16 | Ht 1.803 m (5' 11") | Wt 111.131 kg (245 lb) | BMI 34.17 kg/m2 | SpO2 95% Patient Vitals for the past 24 hrs: BP Temp Temp src Pulse Resp SpO2 Height Weight 08/12/12 1536 179/80 mmHg 97.1 F (36.2 C) Axillary 67 16 95 % - - 08/12/12 1503 - - - 55 17 95 % - - 08/12/12 1057 167/88 mmHg 96.1 F (35.6 C) Axillary 56 16 97 % - - 08/12/12 0832 - - - 46 17 96 % - - 08/12/12 0743 151/64 mmHg 95.9 F (35.5 C) Axillary 51 16 96 % - - 08/12/12 0522 157/99 mmHg - - - - - - - 08/12/12 0330 145/106 mmHg 96.4 F (35.8 C) Axillary 70 16 94 % - - 08/12/12 0229 - - - 57 16 96 % - - 08/11/12 2333 153/89 mmHg 97.1 F (36.2 C) - 60 14 - - - 08/11/12 2322 137/92 mmHg 97.1 F (36.2 C) - 55 14 95 % 1.803 m (5' 11") 111.131 kg (2 45 lb) 08/11/12 2255 137/68 mmHg - - 79 20 94 % - - 08/11/12 2205 177/83 mmHg - - 65 16 95 % - - 08/11/122018 - - - 66 24 94 % - - 08/11/122013 193/86 mmHg 98.2 F (36.8 C) - 82 20 92 % - - 08/11/12 1912 172/78 mmHg - - 65 28 86 % - - Constitutional: Alert, cooperative, no distress, appears stated age, well groomed HEENT: Normocephalic, without obvious abnormality, atraumatic Pupils equal, conjunctiva/corneas clear Normal external ear canals, both ears Nares normal Lips, mucosa, and tongue normal; teeth and gums normal Symmetrical, trachea midline Respiratory: Respirations unlabored Cardiovascular: Regular rate, no pre-tibial edema Abdomen: Genitourinary: Mild RUQ ttp, negative Richardson's sign Deferred Musculoskeletal: Extremities normal, atraumatic, normal AROM bilateral upper and lower extremeties Skin: Skin color, texture, turgor normal, no rashes or lesions Lymph nodes: Cervical nodes normal, no clavicular adenopathy Neurologic: Psychiatric: CNII-XII intact, sensation intact Affect normal, judgement and insight as expected, oriented to person place and time DATA CBC: Lab Results Component Value Date WBC 12.3* 08/12/2012 RBC 4.25 08/12/2012 HGB 12.2* 08/12/2012 HCT 37.2* 08/12/2012 MCV 87.4 08/12/2012 MCH 28.8 08/12/2012 MCHC 32.9 08/12/2012 RDW 45.5 08/12/2012 PLT 261 08/12/2012 MPV 7.0 08/12/2012 DIFFTYPE AUTOMATED 08/12/2012 CMP: Lab Results Component Value Date NA 138 08/12/2012 K 4.1 08/12/2012 CL 106 08/12/2012 CO2 29 08/12/2012 ANIONGAP 7 08/12/2012 GLUF 144* 08/12/2012 BUN 17 08/12/2012 CREATININE 0.93 08/12/2012 BCR 18 08/12/2012 CA 8.9 08/12/2012 PROT 6.3 08/12/2012 ALB 3.5* 08/12/2012 GLOB 2.8 08/12/2012 BILITOT 0.3 08/12/2012 ALP 61 08/12/2012 AST 16 08/12/2012 ALT 13 08/12/2012 EGFR >60 08/12/2012 Hepatic Function Panel: Lab Results Component Value Date PROT 6.3 08/12/2012 ALB 3.5* 08/12/2012 BILITOT 0.3 08/12/2012 ALP 61 08/12/2012 AST 16 08/12/2012 ALT 13 08/12/2012 [facility] XR CHEST 2 VIEW FRONTAL AND LATERAL 08/11/2012 8:55 PM HISTORY: Shortness of breath. TECHNIQUE: Two views of the chest. FINDINGS: Compared with March 16, 2012. The heart is mildly enlarged. No acute infiltrates or evide nce of edema. No pneumothorax or pleural effusions. There is mild thoracic spondylosis noted . IMPRESSION: 1. Mild cardiomegaly. No acute lung disease identified. Ultrasound abdomen, gallbladder [[id number]] Resulted:08/11/122051 Order Status:Completed Updated:08/11/122054 Narrative: EXAM: LIMITED RIGHT UPPER QUADRANT ABDOMEN ULTRASOUND EXAM DATE: 08/11/2012 07:04 PM. CLINICAL HISTORY: Right upper quadrant pain for 1 day. COMPARISON: None. TECHNIQUE: Real-time scanning was performed with static images obtained. FINDINGS: Liver: Suboptimal evaluation, no definite mass. The echotexture is moderately echogenic. Gallbladder: A single small mobile gallbladder stone is present. Sludge is present within t he lumen. No wall thickening evident. Patient is focally tender over the gallbladder. Cannot exclude additional stone in gallbladder neck on this exam. Biliary System: Suboptimally visualized secondary to overlying bowel gas. The common bile d uct measures approximately 8 mm maximally. Pancreas: Suboptimal evaluation secondary to overlying bowel gas. Kidneys: Right: An exophytic cyst about the lower pole measures 2.7 cm. No solid masses. No hydronep hrosis. IMPRESSION: 1. Very limited evaluation secondary to body habitus and bowel gas. 2. Liver moderately fatty infiltrated. 3. Single mobile gallbladder stone present as well as possible additional stone within the gallbladder neck, although this is uncertain. No wall thickening evident, although patient i s focally tender over the gallbladder. These findings are equivocal for early acute cholecys titis. Nuclear medicine DISIDA scan imaging could be considered. RADIA Electronically signed by Brianda Marsh MD on Aug 11 2012 8:52PM PROBLEM LIST Active Problems: Diabetes mellitus type II HTN (hypertension) RUQ pain Cholelithiases Hypoxia WARD (obstructive sleep apnea) CO2 retention Respiratory acidosis ASSESSMENT & PLAN The patient has right upper quadrant pain which is most likely secondary to trauma in natur e. I have reviewed personally the radiographic images, and I concur with the radiologist's i nterpretation. The patient does have some gallstones, but he has no evidence of pericholecys tic fluid. He has no evidence of gallbladder wall thickening. His LFTs are within normal dangelo its. I do not recommend urgent surgical intervention in this patient due to the fact that it is more likely musculoskeletal than visceral. He also has some hypoventilation and respiratory issues that need to be resolved before surgical intervention would even be entertained. I wo uld also recommend obtaining a HIDA scan prior to recommending surgical intervention, but at this time I do not feel that the patient would be a candidate for a HIDA scan due to his re spiratory problems. I personally reviewed the radiographic images, and I concur with the radiologist's interpre tation. I have discussed this case with Dr. Erasto Bautista. Code Status: Full Code Primary Care Physician: JERRELL KEY, DO 08/12/2012 u, Valeria Anthnoy MD - 08/12/2012 2:29 PM PDT Consult* by Valeria Cortez MD at 08/12/12 3289 Author: Valeria Cortez MD Service: (none) Author Type: Physician Filed: 08/12/12 2926 Date of Service: 08/12/121428 Status: Signed Vaccine Specialist: Valeria Cortez MD (Physician) [facility] Service: Pulmonology Initial Consult Note Date of Admission: 08/11/2012 Reason for Consultation: Respiratory management Requesting Physician: Hospitalist History Obtained From: patient CHIEF COMPLAINT: Abdominal pain HISTORY OF PRESENT ILLNESS The patient is a 56 y.o. male who resides in [facility] on [address]. He has seen Dr. Benson in 2011 but he could not tolerate PAP therapy for his WARD. He has returned his PAP unit then. He presents with sharp, moderate, constant, right upper quadrant abdominal pain starting on the morning of 08/11/2012. Nothing relieves the pain but after the patient tripped and fell i n the bathroom, hitting the RUQ area, the abdominal pain worsened. There is no fever, chest pain, dyspnea, nausea or vomiting. He has diarrhea since 08/08/2012. He experiences dizziness when standing up and he has a long history of falls. He denies edie g problems or use of inhalers but admits to wheezing. The patient was admitted after the abdominal ultrasound shows cholelithiasis. He is on empi rodger IV ceftriaxone and metronidazole. On 08/12/2012, the patient is breathing comfortably on BiPAP support but still has ongoing RU Q pain. He is on Duoneb due to respiratory acidosis, wheezing and hypoxemia. BiPAP is replac ed with 4Lpm O2 by NV, and he is maintaining oxygen saturation at 94-95%. With Dilaudid, he has marginal improvement of RUQ pain. Toradol is added. Pulmonary input is requested to manage respiratory and sleep apnea/hypoventilation issues. REVIEW OF SYSTEMS CONSTITUTIONAL: negative for fevers, chills, sweats, fatigue, malaise, anorexia and weigh t loss EYES: negative for double vision, blurred vision, dry eyes, eye discharge, irritation, re dness and icterus HEENT: negative for hearing loss, tinnitus, epistaxis, snoring, sore throat and hoarsenes s RESPIRATORY: see HPI CARDIOVASCULAR: negative for chest pain, palpitations, orthopnea, PND, exertional chest p ressure/discomfort GASTROINTESTINAL: negative for dysphagia, odynophagia, hematemesis and hematochezia GENITOURINARY: negative for frequency, dysuria, nocturia, urinary incontinence, hesitancy and hematuria INTEGUMENT: negative for rash, dryness, skin color change, pruritus and changes in nails HEMATOLOGIC/LYMPHATIC: negative for easy bruising, bleeding, lymphadenopathy, petechiae an d swelling/edema ALLERGIC/IMMUNOLOGIC: negative for urticaria and angioedema ENDOCRINE: negative for polyuria, polydipsia and polyphagia MUSCULOSKELETAL: negative for pain, joint swelling and muscle weakness NEUROLOGICAL: negative for headaches, speech problems, weakness, numbness, near syncope an d tingling BEHAVIOR/PSYCH: negative for decreased energy level, poor concentration and increased agit ation Past Medical History Diagnosis Date Diabetes mellitus [...] daily. atenolol (TENORMIN) 100 MG tablet Take by mouth. ATENOLOL PO Take 100 mg by mouth. cyanocobalamin 1000 MCG tablet Take 100 mcg by mouth daily. diltiazem (DILACOR XR) 120 MG 24 hr capsule Take 240 mg by mouth daily. fenofibrate (TRIGLIDE) 160 MG tablet Take 160 mg by mouth daily. glipiZIDE (GLUCOTROL) 5 MG tablet Take 5 mg by mouth 2 (two) times daily before meals. METFORMIN HCL PO Take 500 mg by [...] Medications ARIPiprazole 10 mg Oral Daily atenolol 100 mg Oral Daily cefTRIAXone 1 g Intravenous Q24H diltiazem 240 mg Oral Daily heparin (porcine) 5,000 Units Subcutaneous Q8H HYDROmorphone 1 mg Intravenous Once insulin aspart 0-3 Units Subcutaneous Nightly insulin aspart 0-6 Units Subcutaneous TID AC ipratropium-albuterol 3 mL Nebulization Q6H metronidazole 500 mg Intravenous Q8H omeprazole 20 mg Oral QAM AC Or pantoprazole 40 mg Intravenous QAM AC ondansetron 4 mg Intravenous Once paroxetine 40 mg Oral QAM pravastatin 20 mg Oral Nightly sodium chloride 2,000 mL Intravenous Once tamsulosin 0.4 mg Oral after dinner DISCONTD: sodium chloride 10 mL Intravenous Q8H Continuous Infusions dextrose sodium chloride 75 mL/hr at 08/11/12 2321 PRN Medications acetaminophen, acetaminophen, dextrose, dextrose, dextrose, glucagon, glucagon, HYDROmorpho ne, ketorolac, ondansetron, ondansetron, polyethylene glycol, DISCONTD: hydrALAZINE, DISCONT D: HYDROmorphone, DISCONTD: HYDROmorphone Family History Problem Relation Age of Onset [...] Narrative Lives in [facility], IADL, full code PHYSICAL EXAM Vital Signs: Filed Vitals: 08/12/12 0522 08/12/12 0743 08/12/12 0832 08/12/12 1057 BP: 157/99 151/64 167/88 Pulse: 51 46 56 Temp: 95.9 F (35.5 C) 96.1 F (35.6 C) TempSrc: Axillary Axillary Resp: 16 17 16 Height: Weight: SpO2: 96% 96% 97% Body mass index is 34.17 kg/(m^2). General Appearance: Alert and oriented, cooperative, no distress, appears stated age Head: Normocephalic, atraumatic Eyes: PERRL, conjunctiva/corneas clear, EOM's intact Ears: Normal external ear canals, both ears Nose: No drainage or sinus tenderness, O2 by nasal cannula Throat: Lips, mucosa, and tongue normal Neck: Supple, symmetrical, trachea midline, no tracheal tug, no adenopathy; no carotid b ruit or JVD Back: Symmetric, no curvature, no CVA tenderness Lungs: Clear to auscultation bilaterally, respirations unlabored Chest Wall: No tenderness or deformity Heart: Normal rate, regular rhythm, S1 and S2 normal, no murmur, rub or gallop Abdomen: Soft, non-tender, bowel sounds normoactive, no masses, no organomegaly Extremities: Extremities normal, atraumatic, no cyanosis or edema, right arm peripheral i v in place, SCD in lower extremities Pulses: 2+ and symmetric all extremities Skin: Skin color, texture, turgor normal, no rashes or lesions, left shoulder wound Lymph nodes: Cervical and supraclavicular nodes normal Neurologic: CNII-XII intact, normal strength, sensation and reflexes throughout DATA CBC: Lab Results Component Value Date WBC 12.3* 08/12/2012 RBC 4.25 08/12/2012 HGB 12.2* 08/12/2012 HCT 37.2* 08/12/2012 MCV 87.4 08/12/2012 MCH 28.8 08/12/2012 MCHC 32.9 08/12/2012 RDW 45.5 08/12/2012 PLT 261 08/12/2012 MPV 7.0 08/12/2012 DIFFTYPE AUTOMATED 08/12/2012 CMP: Lab Results Component Value Date NA 138 08/12/2012 K 4.1 08/12/2012 CL 106 08/12/2012 CO2 29 08/12/2012 ANIONGAP 7 08/12/2012 GLUF 144* 08/12/2012 BUN 17 08/12/2012 CREATININE 0.93 08/12/2012 BCR 18 08/12/2012 CA 8.9 08/12/2012 PROT 6.3 08/12/2012 ALB 3.5* 08/12/2012 GLOB 2.8 08/12/2012 BILITOT 0.3 08/12/2012 ALP 61 08/12/2012 AST 16 08/12/2012 ALT 13 08/12/2012 EGFR >60 08/12/2012 Magnesium: Lab Results Component Value Date MG 1.7 08/11/2012 PT/INR: Lab Results Component Value Date INR 1.1 08/12/2012 PTT: Lab Results Component Value Date APTT 25 03/15/2012 [APTT U/A: Lab Results Component Value Date COLORU See POC results 08/11/2012 CLARITYU CLEAR 08/11/2012 NITRITE NEGATIVE 08/11/2012 UROBILINOGEN 0.2 08/11/2012 PHUR 5.5 08/11/2012 BILIRUBINUR NEGATIVE 08/11/2012 ABG: Lab Results Component Value Date POCPH 7.337* 08/12/2012 POCPCO 57* 08/12/2012 POCPO2 79* 08/12/2012 POCHCO 30* 08/12/2012 POCTCO2 32* 08/12/2012 BEART 5* 08/12/2012 POCSO2 94* 08/12/2012 POCCMT Tidal Volume = 14 08/12/2012 HgBA1c: Lab Results Component Value Date HGBA1C 6.9* 08/11/2012 LABGLYC 151 08/11/2012 TSH: Lab Results Component Value Date TSH 4.90 03/04/2012 Lab Results Component Value Date/Time BNP 7.8 08/11/2012 5:00 PM Radiology Review: XR CHEST 2 VIEW FRONTAL AND LATERAL 08/11/2012 8:55 PM HISTORY: Shortness of breath. TECHNIQUE: Two views of the chest. FINDINGS: Compared with March 16, 2012. The heart is mildly enlarged. No acute infiltrates or evide nce of edema. No pneumothorax or pleural effusions. There is mild thoracic spondylosis noted . IMPRESSION: 1. Mild cardiomegaly. No acute lung disease identified. SSMENT Anxiety/Depression HTN, uncontrolled Bradycardia from beta linda T2DM Cholelithiasis Fatty liver Obesity with WARD Respiratory acidosis Possible asthma Leucocytosis Normocytic anemia PLAN BiPAP during nap time and nocturnally during sleep for WARD therapy. Patient's sleep studies will shed information on his prescribed pressure. His PAP intolerance may be with the press ure and/or the interface. He returned the PAP unit due to financial constraint. Avoid narcotic analgesics due to CO2 retention. Check TSH, BNP and Phos levels. Day 2 Rocephin and Flagyl. Lactobacillus one tablet po tid with meals to prevent antibiotic-associated diarrhea. Fall precautions. PT/OT consult. Evaluate and treat to increase activities of daily living. Aspiration precautions. HOB elevated at 30-45 degrees. Strict I/O. Daily weights. DVT prophylaxis. GI prophylaxis. Start Advair. Continue Duoneb every 6 hours. Deliver nebs via IPV if tolerated. Chest PT BID. May use VEST if applicable and tolerated. Incentive spirometry x 5 minutes q 4 hr while awake. Titrate FiO2 to keep saturation above 88%. Humidify FiO2 at all times. Home O2 evaluation on the day of discharge. Obtain old PFTs for baseline if previously done. Complete PFTs as an outpatient for comparison. Pneumovax ordered. Code Status: Full Code Primary Care Physician: Mik Diego DO Thank you for allowing me to participate in the care of this patient. VALERIA CORTEZ MD 08/12/2012 5:17 PM documented in this enco unter ED Notes Conversion Transaction, Provider Unknown - 08/11/2012 6:54 PM PDTFormatting of this note m ight be different from the original. ED Notes by Sarina Sloan RN at 08/11/121853 Author: Sarina Sloan RN Service: (none) Author Type: Registered Nurse Filed: 08/11/121853 Date of Service: 08/11/121853 Status: Signed Vaccine Specialist: Sarina Sloan RN (Registered Nurse) Patient returned from Ultrasound. Sarina Sloan RN 08/11/121853 onver ivana Transaction, Provider Unknown - 08/11/2012 6:44 PM PDT ED Notes by Maribeth Lwe RN at 08/11/121843 Author: Maribeth Lew RN Service: (none) Author Type: Registered Nurse Filed: 08/11/121843 Date of Service: 08/11/121843 Status: Signed Vaccine Specialist: Maribeth Lew RN (Registered Nurse) Report given to Sarina Lew RN 08/11/121843 onver ivana Transaction, Provider Unknown - 08/11/2012 6:43 PM PDT ED Notes by Maribeth Lew RN at 08/11/121842 Author: Maribeth Lew RN Service: (none) Author Type: Registered Nurse Filed: 08/11/121842 Date of Service: 08/11/121842 Status: Signed Vaccine Specialist: Maribeth Lew RN (Registered Nurse) Remains in [facility]O Maribeth Lew RN 08/11/121842 onver ivana Transaction, Provider Unknown - 08/11/2012 5:20 PM PDT ED Notes by Maribeth Lew RN at 08/11/121719 Author: Maribeth Lew RN Service: (none) Author Type: Registered Nurse Filed: 08/11/121719 Date of Service: 08/11/121719 Status: Signed Vaccine Specialist: Maribeth Lew RN (Registered Nurse) MD at bedside. Maribeth Lew RN 08/11/121719 hitak Yesica llanos DO - 08/11/2012 5:09 PM PDTFormatting of this note might be different from the o riginal. ED Provider Notes by Yesica Flowers DO at 08/11/121708 Author: Yesica Flowers DO Service: (none) Author Type: Physician Filed: 08/12/12 0425 Date of Service: 08/11/121708 Status: Signed Vaccine Specialist: Yesica Flowers DO (Physician) [facility] Department of Emergency Medicine 08/11/2012 History of Present Illness Patient Identification Norah Gr is a 56 y.o. male. Patient information was obtained from patient. History/Exam limitations: none. Patient presented to the Emergency Department by: [facility] Chief Complaint Chief Complaint Patient presents with Abdominal Pain fall Diarrhea for three days 17:14. Pt presents to the ED with abdominal pain. Pain is described as sharp and located at the RUQ. Onset of symptoms was this morning, with a constant course since that time. Severi ty is described as moderate. The patient reports movement worsens symptoms, and nothing reli eves symptoms. No nausea or vomiting. Has had diarrhea for 3 days. Additionally has dizzines s with standing up. Pt had a fall in the bathroom today which worsened the abdominal pain. P t has long history of falls and dizziness. States he's short of breath "sometimes." No fever . No chest pain or SOB. Pt resides in a group adult home. Past Medical History Diagnosis Date Diabetes mellitus type II Atrial fibrillation Hypertension Hyperlipidemia Anxiety Depression WARD (obstructive sleep apnea) 08/11/2012 Past Surgical History Procedure Date Unlisted procedure arthroscopy Knee surgery Leg surgery LLE Colonoscopy Prior to Admission medications Medication Sig Start Date End Date Taking? Authorizing Provider atenolol (TENORMIN) 100 MG tablet Take by [...] for: chest pain Respiratory: Negative for: cough Positive for: SOB "sometimes" Gastrointestinal: Negative for: nausea or vomiting Positive for: diarrhea and abdominal pain Musculoskeletal: Negative for: neck pain or back pain Skin: Negative for: rash or lesion Neuro and psych: Positive for: dizziness with standing up and frequent falls (chronic) All other systems were reviewed and are subjectively reported as negative. Physical Exam BP 191/92 | Pulse 63 | Temp 97.2 F (36.2 C) (Oral) | Resp 18 | Ht 1.803 m (5' 11") | Wt 104.327 kg (230 lb) | BMI 32.08 kg/m2 | SpO2 96% Vitals: hypertensive, otherwise normal Pulse Oximetry Interpretation: Normal General: Alert, mild distress secondary to pain. Eyes: Normal inspection, pupils equal and round, non-icteric ENT: Ears normal, TM's clear Nose normal Pharynx normal Dry mucous membranes Neck: Normal inspection Supple Full ROM Cardiovascular: Normal rate and rhythm, no extra sounds Respiratory: No respiratory distress or wheezing, lungs are clear Abdomen: Hyperactive bowel sounds, marked RUQ abdominal TTP, abdomen is firm Back: Normal inspection Skin: Color normal Warm and dry No rashes Extremities: BARNARD, no peripheral edema Neuro: No gross motor/sensory deficit Medical Decision Making and Emergency Department Course ED Department Course 17:20. Pt presents to the ED with RUQ abdominal pain that started this morning as described in HPI. Has had diarrhea for 3 days. No fever. No nausea or vomiting. On exam the abdomen i s firm and has hyperactive bowel sounds. Pt has marked RUQ abdominal TTP. DDx includes gastr oenteritis, cholelithiasis, cholecystitis, abdominal contusion, vs other. Will order urine s creen, lipase, CBC, CMP, EKG, and abdomen, gallbladder ultrasound. 17:30. Zofran 4 mg IV and Dilaudid 1 mg IV given. 2000mL IV bolus started. 19:19. Pt reevaluation. Pt is short of breath. Now has mild inspiratory wheezes on exam. Go od air excursion. Will order neb treatment. Pt relates that he does have history of sleep ap darryl. Pt uses neb treatments and CPAP at home. I feel his hypoxia is secondary to the sleep a pnea. Pt did get narcotic which could also contribute to his hypoxia. 19:56. Reviewed ultrasound results. Very limited evaluation secondary to body habitus and b owel gas. Liver moderately fatty infiltrated. Single mobile gallbladder stone present as wel l as possible additional stone within the gallbladder neck, although this is uncertain. No w all thickening evident, although patient is focally tender over the gallbladder. These findi ngs are equivocal for early acute cholecystitis. Nuclear medicine DISIDA scan imaging could be considered. 20:19. Duo-Neb 3mL neb solution started. 20:40. Pt reevaluation. Even on oxygen his O2 saturation is running at 89-90%. 20:43. Pt has acute early cholecystitis. He does have a mildly elevated white count, althou gh he is not febrile. Pt has history of sleep apnea and hypoxia. Do not feel safe to send pt home with pain medication. Will need to admit as the pt's underlying problem is his sleep a pnea and possible asthma. I feel it is more appropriate to admit pt to medical services with surgery for consult. 20:49. Pt having abdominal pain and wants pain medication. Dilaudid 1 mg IV given. 20:52. Discussed pt's case with Dr. Key, surgeon, who will consult and see pt in the mo rning. Pt is to be kept NPO. 20:55. Call placed to hospitalist at this time. 21:16. Discussed pt's case with Dr. Ochoa, hospitalist, who will see and admit the pt. 22:02. Reviewed CXR. Poor inspiration. Mild cardiomegaly. Otherwise normal. Records Reviewed Nursing Notes Old medical records Seen here for dizziness in March 2012 after falling. After fairly thorough work up pt wa s discharged with dx of dizziness and instructions to f/u with PCP. Has history of O2 saturations running in the mid s. Suspect his hypoxia is secondary to body habitus as he is morbidly obese. One episode of suicidal ideation in January of 2012 s econdary to not taking his medications. Laboratory Evaluation Results Procedure Component Value Ref Range Date/Time POC Arterial Blood Gas [[id number]] (Abnormal) Collected:08/11/122233 Order Status:Completed Updated:08/11/122237 POC FIO2 32 % pH, Art 7.260 (L) 7.350 - 7.450 POC PCO2 68 (HH) 35 - 45 mmHg POC p02 88 80 - 105 mmHg POC HCO3 31 (H) 22 - 26 mmol/L POC TCO2 33 (H) 23 - 27 mEq/L POC BASE EXCESS 3 0 - 3 mEq/L POC S02 95 95 - 98 % POC clinitek 10 [[id number]] (Abnormal) Collected:08/11/122048 Order Status:Completed Updated:08/11/122051 Color, UA YELLOW Clarity, UA CLEAR Glucose, UA NEGATIVE NEGATIVE mg/dL Bilirubin, UA NEGATIVE NEGATIVE Ketones, UA NEGATIVE NEGATIVE mg/dL Spec Grav, UA >1.029 1.001 - 1.035 Blood, UA NEGATIVE NEGATIVE pH, UA 5.5 4.6 - 8.0 Protein, UA 30 (A) NEGATIVE mg/dL Urobilinogen, UA 0.2 <1.1 mg/dL Nitrite, UA NEGATIVE NEGATIVE WBC, UA NEGATIVE NEGATIVE Comprehensive metabolic panel [[id number]] (Abnormal) Collected:08/11/12 1700 Order Status:Completed Updated:08/11/121753 Specimen Information:Blood SODIUM 141 135 - 143 mmol/L POTASSIUM 4.1 3.5 - 4.9 mmol/L CHLORIDE 104 99 - 109 mmol/L CO2 30 23 - 32 mmol/L ANION GAP AGAP 12 5 - 20 mmol/L GLUCOSE 155 (H) 65 - 99 mg/dL BUN 19 8 - 25 mg/dL CREATININE 1.05 0.70 - 1.30 mg/dL BUN/CREAT 18 CALCIUM 9.4 8.5 - 10.2 mg/dL TOTAL PROTEIN 7.4 6.3 - 8.2 g/dL Albumin 3.6 3.6 - 5.0 g/dL GLOBULIN 3.8 1.3 - 4.9 g/dL A/G 0.9 (L) 1.0 - 2.4 TBIL 0.3 0.1 - 1.5 mg/dL ALK PHOS 80 35 - 115 U/L AST 22 10 - 45 U/L ALT 24 10 - 65 U/L EGFR >60 >60 mL/min/1.73m2 Lipase [[id number]] Collected:08/11/121699 Order Status:Completed Updated:08/11/121753 Specimen Information:Blood LIPASE 121 73 - 393 U/L CBC with differential [[id number]] (Abnormal) Collected:08/11/121699 Order Status:Completed Updated:08/11/121732 Specimen Information:Blood WBC 13.1 (H) 3.8 - 11.0 K/uL RBC 4.66 4.20 - 5.70 M/uL HGB 13.5 13.2 - 17.0 g/dL HCT 39.9 39.0 - 50.0 % MCV 85.7 80.0 - 100.0 fl MCH 29.0 27.0 - 34.0 pg MCHC 33.8 32.0 - 35.5 g/dL RDW SD 42.4 37 - 53 fl PLT 296 150 - 400 K/uL MPV 7.5 fl DIFF TYPE AUTOMATED NEUTROPHILS 71.4 40 - 75 % LYMPHOCYTES 17.5 15 - 48 % MONOCYTES 8.2 0 - 12 % EOSINOPHILS 2.7 0 - 7 % BASOPHILS 0.2 0 - 2 % NEUTROPHILS ABS 9.4 (H) 1.9 - 7.4 K/uL LYMPHOCYTES ABS 2.3 1.0 - 3.9 K/uL MONOCYTES ABS 1.1 (H) 0 - 0.8 K/uL EOSINOPHILS ABS 0.3 0 - 0.5 K/uL BASOPHILS ABS 0.0 0 - 0.1 K/uL Radiology and EKG Evaluation Imaging Results XR Chest PA and Lateral (Preliminary result) Result time:08/11/122221 ED Interpretation Documented by Caty Castaneda (08/11/122221, [facility] Emergency Department, Emergency Medicine) Poor inspiration. Mild cardiomegaly. Great vessels. Normal mediastinum. No infiltrates. No pneumothorax. No pleural effusions. This study has been independently viewed and interpreted by me Yesica Flowers DO Ultrasound abdomen, gallbladder (Final result) Result time:08/11/122051 Final result by Rad Results In Richard (08/11/12 20:52:11) Narrative: EXAM: LIMITED RIGHT UPPER QUADRANT ABDOMEN ULTRASOUND EXAM DATE: 08/11/2012 07:04 PM. CLINICAL HISTORY: Right upper quadrant pain for 1 day. COMPARISON: None. TECHNIQUE: Real-time scanning was performed with static images obtained. FINDINGS: Liver: Suboptimal evaluation, no definite mass. The echotexture is moderately echogenic. Gallbladder: A single small mobile gallbladder stone is present. Sludge is present within t he lumen. No wall thickening evident. Patient is focally tender over the gallbladder. Cannot exclude additional stone in gallbladder neck on this exam. Biliary System: Suboptimally visualized secondary to overlying bowel gas. The common bile duct measures approximately 8 mm maximally. Pancreas: Suboptimal evaluation secondary to overlying bowel gas. Kidneys: Right: An exophytic cyst about the lower pole measures 2.7 cm. No solid masses. No hydronep hrosis. IMPRESSION: 1. Very limited evaluation secondary to body habitus and bowel gas. 2. Liver moderately fatty infiltrated. 3. Single mobile gallbladder stone present as well as possible additional stone within the gallbladder neck, although this is uncertain. No wall thickening evident, although patient i s focally tender over the gallbladder. These findings are equivocal for early acute cholecys titis. Nuclear medicine DISIDA scan imaging could be considered. RADIA Electronically signed by Brianda Marsh MD on Aug 11 2012 8:52PM Preliminary result by Rad Results In Richard (08/11/12 19:51:15) Narrative: IMPRESSION: 1. Very limited evaluation secondary to body habitus and bowel gas. 2. Liver moderately fatty infiltrated. 3. Single mobile gallbladder stone present as well as possible additional stone within the gallbladder neck although this is uncertain. No wall thickening evident although patient is focally tender over the gallbladder. These findings are equivocal for early acute cholecysti tis.. Nuclear medicine DISIDA scan imaging could be considered. RADIA Read by Brianda Marsh MD on Aug 11 2012 7:51PM EKG from 17:39 Sinus bradycardia without ectopics. Rate: 57 Normal P waves and RICHARD Normal QRS and axis Normal ST and T waves Interpreted by myself at time of service. Yesica Flowers DO ED Diagnoses Final diagnoses Cholelithiasis Acute early cholecystitis Sleep apnea Hypoxia Hypertension Leukocytosis Disposition: ED Disposition Admit/Observation Bed request special needs: None Diagnosis?: acute rupesh, sleep apnea, ? asthma, hypoxemia, htn Additional Documentation Procedures Attending Note: Documentation assistance provided by Caty Castaneda (Scribe). Information recorded by the scribe has been reviewed and validated by me. I aruna laughlin with its contents. DO Yesica Driscoll DO 08/12/12 0425 onversion Transacti on, Provider Unknown - 08/11/2012 4:49 PM PDTFormatting of this note might be different fro m the original. ED Notes by Maribeth Lew RN at 08/11/121648 Author: Maribeth Lew RN Service: (none) Author Type: Registered Nurse Filed: 08/11/121650 Date of Service: 08/11/121648 Status: Signed Vaccine Specialist: Maribeth Lew RN (Registered Nurse) Patient states he lives independently at [facility], he states he got off schedule with his metformin and began to have diarrhea x3 days which has happened before, this am he hurridly went to the restroom to have a BM and tripped hitting his abd on the toilet, he did n't tell anyone until about 1530 today because the pain kept getting worse, he denies n/v or fevers Maribeth Lew RN 08/11/121650 onver ivana Transaction, Provider Unknown - 08/11/2012 4:40 PM PDT ED Notes by Maribeth Lew RN at 08/11/121639 Author: Maribeth Lew RN Service: (none) Author Type: Registered Nurse Filed: 08/11/121639 Date of Service: 08/11/121639 Status: Signed Vaccine Specialist: Maribeth Lew RN (Registered Nurse) Bed:09
Expected date:08/11/12
Expected time:
Means of arrival:
Comments:< BR> onver ivana Badillo, Provider Unknown - 08/11/2012 4:28 PM PDT ED Notes by Itzel Huggins RN at 08/11/121 Author: Itzel Huggins RN Service: (none) Author Type: Registered Nurse Filed: 08/11/127 Date of Service: 08/11/121627 Status: Signed Vaccine Specialist: Itzel Huggins RN (Registered Nurse) Pt 56 year old male, fell at [facility] this am,c/o right abdominal pain Itzel Huggins RN 08/11/121628 docume nted in this encounter Plan of Treatment +--------+---------+ + + + | Date | Type | Specialty | Care Team | Description | +--------+---------+ + + + | 09/10/ | Office | Geriatric Medicine | Mireya Pack, | | | 2019 | Visit | | [employer] [address] | | | | | | [address] [place], | | | | | | [place] [address] | | | | | | [phone] | | | | | | | | +--------+---------+ + + + | 09/29/ | Office | Urology | Mireya Pack, | | | 2020 | Visit | | [employer]GER [address] | | | | | | [address] [place], | | | | | | [place] [address] | | | | | | [phone] | | | | | | | | | | | | Toy Wild W, DO | | | | | | [address] | | | | | | [place] [address] | | | | | | [phone] | | | | | | | | +--------+---------+ + + + documented as of this encounter Procedures + +--------+ + + + | Procedure Name | Priori | Date/Time | Associated Diagnosis | Comments | | | ty | | | | + +--------+ + + + | NM HEPATOBILIARY W | Routin | 08/13/2012 | | Results for this | | CCK | e | 3:49 PM | | procedure are in the | | | | PDT | | results section. | + +--------+ + + + | ECG 12 LEAD | Routin | 08/13/2012 | | Results for this | | | e | 10:43 AM | | procedure are in the | | | | PDT | | results section. | + +--------+ + + + | XR CHEST 2 VIEWS | Routin | 08/11/2012 | | Results for this | | | e | 8:58 PM | | procedure are in the | | | | PDT | | results section. | + +--------+ + + + | US ABDOMEN LIMITED | Routin | 08/11/2012 | | Results for this | | | e | 7:03 PM | | procedure are in the | | | | PDT | | results section. | + +--------+ + + + | ECG 12 LEAD | Routin | 08/11/2012 | | Results for this | | | e | 5:39 PM | | procedure are in the | | | | PDT | | results section. | + +--------+ + + + documented in this encounter Results NM Hepatobiliary w PHARM (08/13/2012 3:49 PM PDT) + + | Specimen | + + | | + + + + + | Narrative | Performed At | + + + | [facility] WITH [facility] 08/13/2012 1:32 PM | | | HISTORY: Right upper quadrant abdominal pain. TECHNIQUE: The | | | patient was given 5 mCi of technetium 99m Choletec IV and that was | | | followed by imaging of the abdomen for one hour. After gallbladder | | | filling was confirmed the patient was given 2.35-mcg of Kinevac IV and | | | that was followed by further imaging for one hour. FINDINGS: | | | No prior HIDA scan for comparison. There is good uptake by the | | | liver. The gallbladder and biliary tree begin to visualize by 15 | | | minutes. Gut uptake is noted by 20 minutes. The gallbladder is | | | well filled by 60 minutes. The gallbladder ejection fraction is | | | 79%. IMPRESSION: 1. No evidence of cystic duct obstruction. | | | Normal gallbladder ejection fraction of 79%. Electronically | | | signed by Joe De Dios MD on 08/13/2012 3:59 PM | | + + + + + | Procedure Note | + + | Richard, Rad Conversion - 09/28/2018 3:24 PM PDT [facility] HEPATOBILIARY SCAN WITH | | CCK08/13/2012 1:32 PM HISTORY:Right upper quadrant abdominal pain. TECHNIQUE:The patient | | was given 5 mCi of technetium 99m Choletec IV and that was followed by imaging of the | | abdomen for one hour. After gallbladder filling was confirmed the patient was given | | 2.35-mcg of Kinevac IV and that was followed by further imaging for one hour. | | FINDINGS:No prior HIDA scan for comparison. There is good uptake by the liver. The | | gallbladder and biliary tree begin to visualize by 15 minutes. Gut uptake is noted by | | 20 minutes. The gallbladder is well filled by 60 minutes. The gallbladder ejection | | fraction is 79%. IMPRESSION:1. No evidence of cystic duct obstruction. Normal | | gallbladder ejection fraction of 79%. | | | |FINDINGS: | |No prior HIDA scan for comparison. There is good uptake by the liver. The gallbladder and biliary tree begin to visualize by 15 minutes. Gut uptake is noted by 20 minutes. The gal lbladder is well filled by 60 minutes. The gallbladder ejection | |fraction is 79%. | | | |IMPRESSION: | |1. No evidence of cystic duct obstruction. Normal gallbladder ejection fraction of 79%. | | | | | + + ECG 12 lead (08/13/2012 10:43 AM PDT) + + + + + + | Component | Value | Ref Range | Performed | Pathologist | | | | | At | Signature | + + + + + + | DIAGNOSIS: | Atrial fibrillation with | | EXTERNAL | | | | rapid ventricular | | LAB | | | | responseNonspecific T | | | | | | wave abnormalityAbnormal | | | | | | ECGWhen compared with | | | | | | ECG of 11-AUG-2012 | | | | | | 17:39,Atrial | | | | | | fibrillation has | | | | | | replaced Sinus | | | | | | rhythmVent. rate has | | | | | | increased BY 67 | | | | | | BPMNonspecific T wave | | | | | | abnormality now evident | | | | | | in Inferior | | | | | | leadsNonspecific T wave | | | | | | abnormality now evident | | | | | | in Lateral | | | | | | leadsConfirmed by | | | | | | ROSARIO MITCHELL ([id number]) on | | | | | | 08/13/2012 6:50:30 PM | | | | + + + + + + + + | Specimen | + + | | + + + + + | Narrative | Performed At | + + + | Historically converted procedure from [facility] environment | EXTERNAL LAB | + + + + +---------+ + + | Performing | Address | City/State/Zipcode | Phone Number | | Organization | | | | + +---------+ + + | EXTERNAL LAB | | | | + +---------+ + + XR Chest 2 Vws (08/11/2012 8:58 PM PDT) + + | Specimen | + + | | + + + + + | Narrative | Performed At | + + + | [facility] XR CHEST 2 VIEW FRONTAL AND LATERAL 08/11/2012 8:55 PM | | | HISTORY: Shortness of breath. TECHNIQUE: Two views of the | | | chest. FINDINGS: Compared with March 16, 2012. The heart is | | | mildly enlarged. No acute infiltrates or evidence of edema. No | | | pneumothorax or pleural effusions. There is mild thoracic | | | spondylosis noted. IMPRESSION: 1. Mild cardiomegaly. No acute | | | lung disease identified. | | + + + + ------+ | Procedure Note | + ------+ | Richard, Rad Conversion - 09/28/2018 3:24 PM PDT [facility] CHEST 2 VIEW FRONTAL | | AND LATERAL08/11/2012 8:55 PM HISTORY:Shortness of breath. TECHNIQUE:Two views of the | | chest. FINDINGS:Compared with March 16, 2012. The heart is mildly enlarged. No acute | | infiltrates or evidence of edema. No pneumothorax or pleural effusions. There is mild | | thoracic spondylosis noted. IMPRESSION:1. Mild cardiomegaly. No acute lung disease | | identified. | | | |TECHNIQUE: | |Two views of the chest. | | | |FINDINGS: | |Compared with March 16, 2012. The heart is mildly enlarged. No acute infiltrates or angie dence of edema. No pneumothorax or pleural effusions. There is mild thoracic spondylosis n oted. | | | |IMPRESSION: | |1. Mild cardiomegaly. No acute lung disease identified. | | | | | + ------+ US Abdomen Limited (08/11/2012 7:03 PM PDT) + + | Specimen | + + | | + + + + + | Narrative | Performed At | + + + | EXAM: LIMITED RIGHT UPPER QUADRANT ABDOMEN ULTRASOUND EXAM | | | DATE: 08/11/2012 07:04 PM. CLINICAL HISTORY: Right upper quadrant | | | pain for 1 day. COMPARISON: None. TECHNIQUE: Real-time | | | scanning was performed with static images obtained. FINDINGS: | | | Liver: Suboptimal evaluation, no definite mass. The echotexture is | | | moderately echogenic. Gallbladder: A single small mobile | | | gallbladder stone is present. Sludge is present within the lumen. No | | | wall thickening evident. Patient is focally tender over the | | | gallbladder. Cannot exclude additional stone in gallbladder neck on | | | this exam. Biliary System: Suboptimally visualized secondary to | | | overlying bowel gas. The common bile duct measures approximately 8 mm | | | maximally. Pancreas: Suboptimal evaluation secondary to overlying | | | bowel gas. Kidneys: Right: An exophytic cyst about the lower pole | | | measures 2.7 cm. No solid masses. No hydronephrosis. IMPRESSION: | | | 1. Very limited evaluation secondary to body habitus and bowel gas. | | | 2. Liver moderately fatty infiltrated. 3. Single mobile gallbladder | | | stone present as well as possible additional stone within the | | | gallbladder neck, although this is uncertain. No wall thickening | | | evident, although patient is focally tender over the gallbladder. | | | These findings are equivocal for early acute cholecystitis. Nuclear | | | medicine DISIDA scan imaging could be considered. RADIA | | | Electronically signed by Brianda Marsh MD on Aug 11 2012 8:52PM | | + + + + + | Procedure Note | + + | Richard, Rad Conversion - 09/28/2018 3:24 PM PDT EXAM:LIMITED RIGHT UPPER QUADRANT | | ABDOMEN ULTRASOUND EXAM DATE: 08/11/2012 07:04 PM. CLINICAL HISTORY: Right upper quadrant | | pain for 1 day. COMPARISON: None. TECHNIQUE: Real-time scanning was performed with | | static images obtained. FINDINGS:Liver: Suboptimal evaluation, no definite mass. The | | echotexture is moderately echogenic. Gallbladder: A single small mobile gallbladder | | stone is present. Sludge is present within the lumen. No wall thickening evident. | | Patient is focally tender over the gallbladder. Cannot exclude additional stone in | | gallbladder neck on this exam. Biliary System: Suboptimally visualized secondary to | | overlying bowel gas. The common bile duct measures approximately 8 mm maximally. | | Pancreas: Suboptimal evaluation secondary to overlying bowel gas. Kidneys:Right: An | | exophytic cyst about the lower pole measures 2.7 cm. No solid masses. No hydronephrosis. | | IMPRESSION:1. Very limited evaluation secondary to body habitus and bowel gas.2. Liver | | moderately fatty infiltrated.3. Single mobile gallbladder stone present as well as | | possible additional stone within the gallbladder neck, although this is uncertain. No | | wall thickening evident, although patient is focally tender over the gallbladder. These | | findings are equivocal for early acute cholecystitis. Nuclear medicine DISIDA scan | | imaging could be considered. RADIA Electronically signed by Brianda Marsh MD on Aug 11 | | 2012 8:52PM | |Pancreas: Suboptimal evaluation secondary to overlying bowel gas. | | | |Kidneys: | |Right: An exophytic cyst about the lower pole measures 2.7 cm. No solid masses. No hydronep hrosis. | | | |IMPRESSION: | |1. Very limited evaluation secondary to body habitus and bowel gas. | |2. Liver moderately fatty infiltrated. | |3. Single mobile gallbladder stone present as well as possible additional stone within the gallbladder neck, although this is uncertain. No wall thickening evident, although patient i s focally tender over the | |gallbladder. These findings are equivocal for | | early acute cholecystitis. Nuclear medicine DISIDA scan imaging could be considered. | | | |RADIA | | | | Electronically signed by Brianda Marsh MD on Aug 11 2012 8:52PM | + + ECG 12 lead (08/11/2012 5:39 PM PDT) + + + + + [...] | | | | with ECG of 15-MAR-2012 | | | | | | 23:18,No significant | | | | | | [...] (500), | | | | | | publication editor SANYA ALDANA ([id number]) | | | | | | on 08/12/2012 5:18:31 AM | | | | + + + + + + + + | Specimen | + + | | + + + + + | Narrative | Performed At | + + + | Historically converted procedure from [facility] environment | EXTERNAL LAB | + + + + +---------+ + + | Performing | Address | City/State/Zipcode | Phone Number | | Organization | | | | + +---------+ + + | EXTERNAL LAB | | | | + +---------+ + + documented in this encounter Visit Diagnoses + + | Diagnosis | + + | Cholelithiasis Calculus of gallbladder without mention of cholecystitis or | | obstruction | + + | Diabetes mellitus type II Type II or unspecified type diabetes mellitus without | | mention of complication, not stated as uncontrolled | + + | Fall at home Unspecified fall | + + | HTN (hypertension) Unspecified essential hypertension | + + | WARD (obstructive sleep apnea) Obstructive sleep apnea (adult) (pediatric) | + + | CO2 retention Acidosis | + + | Atrial fibrillation (HCC) Atrial fibrillation | + + | Other chest pain | + + | RUQ pain Abdominal pain, right upper quadrant | + + | Acute cholecystitis | + + | Sleep apnea Unspecified sleep apnea | + + | Hypoxia Hypoxemia | + + | Hypertension Unspecified essential hypertension | + + | Leukocytosis Leukocytosis, unspecified | + + | Abdominal pain, right upper quadrant | + + | Anxiety and depression Dysthymic disorder | + + | Biliary colic Calculus of gallbladder without mention of cholecystitis or obstruction | + + documented in this encounter
--- OUTSIDE RECORDS SUMMARY | ~2019-09-09 | XMS | Encounter Summary ---
Demographics + + + | Address | [address] | | | [place] [address] | + + + | Home Phone | | + + + | Preferred Language | Unknown | + + + | Marital Status | | + + + | Yarsanism Affiliation | 1027 | + + + | Race | Unknown | + + + | Ethnic Group | Unknown | + + + Author + + + | Author | [facility] | | | and [place] | + + + | Organization | [facility] | | | and [place] | + + + | Address | Unknown | + + + | Phone | Unavailable | + + + Support + + + + + | Name | Relationship | Address | Phone | + + + + + | Sammi Kohler | ECON | [place] [address] | | + + + + + Care Team Providers + +------+ + | Care Reproduction Production Manager Name | Role | Phone | + +------+ + | Mireya Pack NP | PCP | | + +------+ + Encounter Details +--------+ + + + + | Date | Type | Department | Care Team | Description | +--------+ + + + + | 08/11/ | Orders Only | [facility] | Conversion | | | 2013 | | CONVERSION DEP [address] | Transaction, | | | | | [address] | Provider Unknown | | | | | [place], [place] | [phone] | | | | | [address] | | | | | | [phone] | | | +--------+ + + + [...] | | 2019 | Visit | | EASTERN PHILOSOPHY PROFESSOR [address] | | | | | | [address] [place], | | | | | | [place] [address] | | | | | | [phone] | | | | | | | | +--------+---------+ + + + | 09/29/ | Office | Urology | Mireya Pack, | | | 2019 | Visit | | EASTERN PHILOSOPHY PROFESSOR [address] | | | | | | [address] [place], | | | | | | [place] [address] | | | | | | [phone] | | | | | | | | | | | | Toy Wild DO | | | | | | [address] | | | | | | [place] [address] | | | | | | [phone] | | | | | | | [...]
--- OUTSIDE RECORDS SUMMARY | ~2019-09-09 | XMS | Encounter Summary ---
Demographics + + + | Address | [address] | | | [place] [address] | + + + | Home Phone | | + + + | Preferred Language | Unknown | + + + | Marital Status | | + + + | Synagogue Affiliation | 1027 | + + + [...] + | Sammi Kohler | ECON | [place] [address] | | + + + + + Care Team Providers + +------+ + | Care Ocean Clam Boat Captain Name | Role | Phone | + +------+ + PCP | Unavailable | + +------+ + Encounter Details +--------+ + + + + | Date | Type | Department | Care Team | Description | +--------+ + + + + | 03/31/ | Hospital | [facility] | | | | 2014 | Encounter | [facility] | | | | | | CLINICAL LABORATORY | | | | | | [address] | | | | | | [place], [place] | | | | | | [address] | | | | | | [phone] | | | +--------+ + + + [...] | | 2019 | Visit | | BREAKFAST AND ROOM ATTENDANT [address] | | | | | | [address] [place], | | | | | | [place] [address] | | | | | | [phone] | | | | | | | | +--------+---------+ + + + | 09/29/ | Office | Urology | Mireya Pack, | | | 2019 | Visit | | BREAKFAST AND ROOM ATTENDANT [address] | | | | | | [address] [place], | | | | | | [place] [address] | | | | | | [phone] | | | | | | | | | | | | Toy Wild, DO | | | | | | [address] | | | | | | [place] [address] | | | | | | [phone] | | | | | | | | +--------+---------+ + + + documented as of this encounter Visit Diagnoses Not on filedocumented in this encounter"
--- OUTSIDE RECORDS SUMMARY | ~2019-09-09 | XMS | Encounter Summary ---
Demographics + + + | Address | [address] | | | [place] [address] | + + + | Home Phone [...] Sammi Kohler | ECON | [place] [address] | | + + + + + Care Team Providers + +------+ + | Care Insulation Estimator Name | Role | Phone | + +------+ + | Holly Pack NP | PCP | | + +------+ + Reason for Visit + + + | Reason | Comments | + + + | Diarrhea (Adult) | Watery diarrhea 4 or more episodes per day, per [facility] has been | | | having diarrhea for weeks | + + + | Failure to Thrive | per LOOM OPERATOR patient needs social work program coordinator, states patient is unable | | | to care for himself | + + + Encounter Details +--------+ + + + + | Date | Type | Department | Care Team | Description | +--------+ + + + + | 07/14/ | Emergency | [facility] | Norah Barker MD | Uncontrolled type 2 | | 2020 | | [facility] | [address] | diabetes mellitus | | | | EMERGENCY CENTER | [place] [address] | with hyperglycemia | | | | [address] | [phone] | ([facility]) (Primary Dx); | | | | [place] | | Uncontrolled | | | | [address] | | hypertension; | | | | [phone] | | Chronic diarrhea | +--------+ + [...] sent through Care Everywhere.Diarrhea, Unkno wn Cause (Romanian)documented in this encounter Medications at Time of [...] Barker MD - 07/15/2019 12:27 PM PDT [facility] Department of Emergency Medicine History of Present Illness Patient Identification Norah Gr is a 63 y.o. male. Patient information was obtained from patient History/Exam limitations:none ED13/ED13 Primary Care Doctor: Holly Pack NP Chief Complaint Chief Complaint Patient presents with Diarrhea (Adult) Watery diarrhea 4 or more episodes per day, per LOOM OPERATOR has been having diarrhea for weeks Failure to Thrive per LOOM OPERATOR patient needs social work program coordinator, states patient is unable to care for [...] Medical History: Diagnosis Date Acute pulmonary embolism ([facility]) 10/14/2017 Anxiety ARF (acute renal failure) ([facility]) 03/02/2013 Atrial fibrillation ([facility]) Basal cell carcinoma 09/26/2012 arm and back COPD (chronic obstructive pulmonary disease) ([facility]) 03/02/2013 hypoxemia on 2 lts nc Depression Development delay Diabetes mellitus type II DVT (deep venous thrombosis) ([facility]) 03/29/2018 Facial droop 07/08/2013 GIB (gastrointestinal bleeding) 03/02/[address] Nur, rectal ulcers, nodule of GE junction Hypercholesterolemia 07/08/2013 Hyperlipidemia 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 Obesity, Class I, BMI 30-34.9 07/08/2013 WARD (obstructive sleep apnea) 08/11/2012 does not use CPAP because of the noise Other chronic pain Renal failure Stroke (HCC) TIA (transient ischemic attack) Unspecified visual disturbance reading glasses Past Surgical History: Procedure Laterality Date ABDOMEN SURGERY CHOLECYSTECTOMY CHOLECYSTECTOMY, LAPAROSCOPIC 09/12/2012 Procedure: LAPAROSCOPIC - CHOLECYSTECTOMY; Surgeon: Jevon Vargas DO; Location: [facility] MAIN OR; Service: General; 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; COLONOSCOPY COLONOSCOPY 03/04/2013 Procedure: COLONOSCOPY; Surgeon: Howie Gibson MD; Location: [facility] ENDOSCOPY; Service: Gastroen terology; 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; HERNIA REPAIR 07/03/2013 Procedure: LAPAROSCOPIC - HERNIA - INCISIONAL; Surgeon: Jevon Vargas DO; Location: [facility] MAIN OR; Service: General; 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; KNEE SURGERY rt knee, patella LEG SURGERY LLE OTHER SURGICAL HISTORY UNLISTED PROCEDURE ARTHROSCOPY OTHER SURGICAL HISTORY Left 05/05/2014 SKIN LESION EXCISION - Procedure: EXCISION - LESION - FROZEN SECTION; Surgeon: Sy murcia MD; Location: [facility] MAIN OR; Service: Plastics; Laterality: Left; forearm SKIN BIOPSY SKIN CANCER EXCISION Left 10/10/2012 Procedure: EXCISION - SKIN CANCER; Surgeon: Sy Fierro MD; Location: [facility] MAIN OR; Service: Plastics; Laterality: Left; upper arm and upper back w/frozen section UPPER GASTROINTESTINAL ENDOSCOPY UPPER GASTROINTESTINAL ENDOSCOPY 03/03/2013 Procedure: ESOPHAGOGASTRODUODENOSCOPY; Surgeon: Howie Gibson MD; Location: [facility] ENDOSCOPY; Se rvice: Gastroenterology; 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; [...] not taking: Reported on 07/03/2019 11/07/18 Holly aPck NP Glucose Blood (BLOOD GLUCOSE TEST STRIPS) [...] to care for himsel f. Declines social work program coordinator consult. Requests Tylenol for his headache. At [...] Value Ref Range Date/Time Urinalysis With Microscopic [[id number]] (Abnormal) Collected: 07/15/19 1328 Order Status: Completed Specimen: Urine, Clean Catch Updated: 07/15/19 1342 Color, UA YELLOW Clarity, UA CLEAR Specific [place], Urine 1.020 1.002 - 1.030 Leukocyte esterase, [...] Urine NONE SEEN NONE Comprehensive Metabolic Panel [[id number]] (Abnormal) Collected: 07/15/191219 Order Status: Completed Specimen: Blood Updated: 07/15/19 1250 Na 138 135 - 145 mmol/L K [...] U/L Estimated GFR >60 >60 mL/min/1.73m2 Lipase [[id number]] Collected: 07/15/191219 Order Status: Completed Specimen: Blood Updated: 07/15/19 1250 Lipase 44 12 - 53 U/L C-Reactive Protein [[id number]] (Abnormal) Collected: 07/15/191219 Order Status: Completed Specimen: Blood Updated: 07/15/19 1250 CRP 0.6 <0.5 mg/dL Protime INR [[id number]] Collected: 07/15/191219 Order Status: Completed Specimen: Blood Updated: 07/15/19 1245 INR 1.0 CBC with Differential [[id number]] (Abnormal) Collected: 07/15/19 1220 Order Status: Completed [...] Nurse Practitioner - Primary Care Contact information: [address] [place] [address] Discharge Medications: ED Prescriptions None This document has been prepared with a voice recognition system. The possibility of "sound alike" head of precision targeting errors, addition and/or deletions may occur. If there is any question p lease contact the author of the document. Please note appropriate PPE was worn during all interactions with the patient. Procedures Norah Barker MD 07/15/19 1422 enniffer Guerra RN - 07/15/2019 12:14 PM PDTBed: ED13 Expected date: Expected time: Means of arrival: Comments: 172 documented in this encounter Plan of Treatment +--------+---------+ + + + | Date | Type | Specialty | Care Team | Description | +--------+---------+ + + + | 09/10/ | Office | Geriatric Medicine | Holly Pack, | | 2019 | Visit | | LOADING UNIT OPERATOR [address] | | | | | | [address] [place], | | | | | | [place] [address] | | | | | | [phone] | | | | | | | | +--------+---------+ + + + | 09/29/ | Office | Urology | Holly Pack, | | 2019 | Visit | | LOADING UNIT OPERATOR [address] | | | | | | [address] [place], | | | | | | [place] [address] | | | | | | [phone] | | | | | | | | | | | | Toy Wlid, DO | | | | | | [address] | | | | | | [place] [address] | | | | | | [phone] | | | | | | | [...] | | | ON?06/ | | | | | | 0 | | | 12:14? | | | GR, | | | NORAH | | | | | | M?MRN: | | | | | | [id number] | | | [id number] | | | riteri | | | [...] | | s [facility] | | | [place] | | | [place] | | | [...] | | | [place] | | | Cad Operator | | | al | | [...] | | | [place] | | | Cad Operator | | | al | | [...] | | | [place], | | | LOADING UNIT OPERATOR | | | Nurse | | | [...] | | | [id number] | | | [id number] | | | 36 | | | [...] - 1.030 | [facility] | | | [place], | | | LABORATORY | | | [...] | | LABORATORY | | | | [facility];[address];[place] [address] | | | | + + + [...] | + + + + + | [facility] | [address] | [place] [address] | [phone] | + + + + + C-Reactive Protein (07/15/2019 12:20 PM PDT) + + + + + + | Component | Value | Ref Range | Performed | Pathologist | | | | | At | Signature | + + + + + + | CRP | 0.6 (H)Comment: Testing | <0.5 mg/dL | [facility] | | | | performed at [facility];[address] | | LABORAT[address] | | | | [address];[place] | | | | | | [address] | | | | + + + + + + + + | Specimen | + + | Blood | + + + + + + + | Performing | Address | City/State/Zipcode | Phone Number | | Organization | | | | + + + + + | [facility] | [address] | [place] [address] | [phone] | + + + + + Hayime INR (07/15/2019 12:20 PM PDT) + + [...] | | performed at [facility] | | | | | | [address];[place], [place] | | | | | | [address] | | | | + + + + + + + + | Specimen | + + | Blood | + + + + + + + | Performing | Address | City/State/Zipcode | Phone Number | | Organization | | | | + + + + + | [facility] | [address] | [place] [address] | [phone] | + + + + + Lipase (07/15/2019 12:20 PM PDT) + + + + + + | Component | Value | Ref Range | Performed | Pathologist | | | | | At | Signature | + + + + + + | Lipase | 44Comment: Testing | 12 - 53 U/L | [facility] | | | | performed at [facility];[address] | | LABORATORY | | | | [address];[place] | | | | | | [address] | | | | + + + + + + + + | Specimen | + + | Blood | + + + + + + + | Performing | Address | City/State/Zipcode | Phone Number | | Organization | | | | + + + + + | [facility] | [address] | [place] [address] | [phone] | + + + + + Comprehensive [...] | >60Comment: GFR <60: | >60 | [facility] | | | GFR | CHRONIC [...] | | | | | | [facility] traceable | | | | | | equation.Testing | | | | | | performed at [facility];[address] | | | | | | [facility];[place], [place] | | | | | | [address] | | | | + + + + + + + + | Specimen | + + | Blood | + + + + + + + | Performing | Address | City/State/Zipcode | Phone Number | | Organization | | | | + + + + + | [facility] | [address] | [place] [address] | [phone] | + + + + + CBC [...] 0.03Comment: Testing | 0.00 - 0.10 | [facility] | | | Absolute | performed at [facility];[address] | [address] | LABORATORY | | | | [address];[place], [place] | | | | | | [address] | | | | + + + + + + + + | Specimen | + + | Blood | + + + + + + + | Performing | Address | City/State/Zipcode | Phone Number | | Organization | | | | + + + + + | [facility] | [address] | [place] [address] | [phone] | + + + + + documented [...]
--- OUTSIDE RECORDS SUMMARY | ~2019-09-09 | XMS | Encounter Summary ---
Demographics + + + | Address | [address] | | | [place] [address] | + + + | Home Phone [...] + | Sammi Kohler | ECON | [place] [address] | | + + + + + Care Team Providers + +------+ + | Care Die Cast Supervisor Name | Role | Phone | + +------+ + PCP | Unavailable | + +------+ + Encounter Details +--------+ + + + + | Date | Type | Department | Care Team | Description | +--------+ + + + + | 10/31/ | Emergency | [facility] | [place], [place], | Acute nonintractable | | 2015 | | [facility] | [address] | headache, | | | | EMERGENCY CENTER | [place] [address] | unspecified headache | | | | [address] | [phone] | type | | | | [place], [place] | | | | | | [address] | | | | | | [phone] | | | +--------+ + + + [...] ED Notes Conversion Transaction, Provider Unknown - 10/31/2014 6:57 AM PDTFormatting of this note m ight be different from the original. ED Notes by Carlos Morfin RN at 10/31/14656 Author: Carlos Morfin RN Service: (none) Author Type: Registered Nurse Filed: 10/31/1458 Date of Service: 10/31/14656 Status: Signed Face Painter: Carlos Morfin RN (Registered Nurse) 20/40 both eyes in visual acuity check Carlos Morfin RN 10/31/14 0658 rabtr ee, Marcos Preston MD - 10/31/2014 5:24 AM PDT ED Provider Notes by Marcos Nugent MD at 10/31/14523 Author: Marcos Nugent MD Service: -Emergency Author Type: Physician Filed: 10/31/14717 Date of Service: 10/31/14523 Status: Addendum Face Painter: Marcos Nugent MD (Physician) Related Notes: Original Note by Marcos Nugent MD (Physician) filed at 10/31/14716 [facility] Department of Emergency Medicine 10/31/2014 History of Present Illness Patient Identification Kevyn Guzman is a 58 y.o. male. Patient information was obtained from patient. History/Exam limitations: none. Patient presented to the Emergency Department by: Car Chief Complaint Chief Complaint Patient presents with Headache "My temples are pounding, it woke me up" at 0430 Decreased Visual Acuity c/o "fuzzy visions" since 0430 Neck Stiffness "Since I woke up" at 0430 5:30 AM The patient presents to ED with complaints of RUBIN Location: in both of his temples Quality: painful Severity: 6/10 Context: Pt had RUBIN starting his morning at about 4:30 AM. Pt reports also seeing flashes in his visual kong. The pt missed some Coumadin doses last week. He hasn't missed any doses yesterday or today. He hasn't fallen or received any acute injuries. Timing: constant Duration: approximately 4:30 AM Modifying factors: nothing The patient also complains of flashing lights in visual kong Patient denies acute injuries, falls, any other symptoms or complaints 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 (transient ischemic attack) prison (current) use of 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 Past Surgical History [...] [facility] MAIN OR ; Service: Plastics; Laterality: Left; upper arm and upper back w/frozen section Esophagogastroduodenoscopy 03/03/2013 Procedure: ESOPHAGOGASTRODUODENOSCOPY; Surgeon: Howie Gibson MD; Location: [facility] ENDOSCOPY; S ervice: Gastroenterology; 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; Colonoscopy 03/04/2013 Procedure: COLONOSCOPY; Surgeon: Howie Gibson MD; Location: [facility] ENDOSCOPY; Service: Gastroe nterology; 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; Upper gastrointestinal endoscopy Skin biopsy Hernia repair 07/03/2013 Procedure: LAPAROSCOPIC - HERNIA - INCISIONAL; Surgeon: Jevon Vargas DO; Location: [facility] MAIN OR; Service: General; 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; Skin lesion excision Left 05/05/2014 Procedure: EXCISION - LESION - FROZEN SECTION; Surgeon: Sy Fierro MD; Location: [facility] MAIN OR; Service: Plastics; Laterality: Left; forearm Prior to Admission medications Medication Sig Start Date End Date Taking? Authorizing Provider Albuterol Sulfate (VENTOLIN HFA IN) Inhale 2 puffs into the lungs as needed. 108 mcg/act Historical Provider Wawao-N-Tjnjbcrwehmzy (BEANO) TABS Take 150 Units by mouth [...] 100 mg by mouth nightly. Historical Provider qzkgijhir-syyuxqcv-riuvnshgx hydroxide-simethicone Take 40 mLs by mouth daily [...] for fever and chills. HENT: Negative for congestion and sore throat. Eyes: Negative for blurred vision, double vision and pain. Positive for: flashes in vision Respiratory: Negative for cough and shortness of breath. Cardiovascular: Negative for chest pain. Gastrointestinal: Negative for nausea, vomiting, abdominal pain and diarrhea. Genitourinary: Negative for dysuria. Musculoskeletal: Negative for back pain and falls. Negative for: acute injuries Skin: Negative for rash. Neurological: Positive for headaches. Negative for dizziness. Psychiatric/Behavioral: Negative for depression. All other systems reviewed and are negative. Physical Exam Filed Vitals: 10/31/14 0512 10/31/14 0614 10/31/14 0645 BP: 177/80 192/90 156/79 Pulse: 73 67 72 Temp: 98.5 F (36.9 C) 98.4 F (36.9 C) TempSrc: Temporal Resp: 14 16 16 Weight: 100.8 kg (222 lb 3.6 oz) SpO2: 96% 96% 98% Vital sign interpretation: Hypertensive, afebrile. Pulse Oximetry interpretation: Normal on RA. General: Alert, no active distress Eyes: Normal inspection, EOMI, Head: NCAT ENT: Ears normal Nose normal Neck: Normal inspection, Supple, FROM without pain, Cardiovascular: Extremity perfusion appears normal Respiratory: Effort normal, No respiratory distress, Lungs are clear Abdomen: Nondistended, Soft, nontender, no pulsatile abd masses, no guarding or rebound Back: Normal inspection, normal movement. Skin: No rash Extremities: No deformities, Neuro: Alert, oriented, cranial nerves grossly intact. No gross motor deficits, Sensation intact/symmetrical in all Ext., Chest, Abd. No pronator drift Baseline speech impediment, as I have taken care of the pt previously Psych: Mood normal Lymph: No visible adenopathy Medical Decision Making and Emergency Department Course ED Department Course My DDx includes, but is not limited to: see below. The following medications were given during the course of treatment in the Emergency Depart ment: Medications HYDROmorphone (DILAUDID) injection 1 mg (not administered) proparacaine (ALCAINE) 0.5 % ophthalmic solution 2 drop (not administered) proparacaine (ALCAINE) 0.5 % ophthalmic solution (not administered) sodium chloride (bolus) 0.9 % 1,000 mL (0 mLs Intravenous Stopped 10/31/14 0647) metoclopramide (REGLAN) injection 10 mg (10 mg Intravenous Given 10/31/14 0540) acetaminophen (OFIRMEV) solution 1,000 mg (0 mg Intravenous Stopped 10/31/14 0612) MDM: Pleasant 58 y.o. male with RUBIN and flashes of light in visual field. Differential: Headache, migraine, subarachnoid hemorrhage, intracranial bleed, Patient presents here to emergency department indicates these had approximately one hour of headache, progressive, vague ache, denies any trauma, was not thunderclap Pt had a normal INR 2 weeks ago at 1.0. He is on Coumadin. We will repeat his INR today, obtain a CT to evaluate for possible intracranial bleed since the patient is on Coumadin. Patient has associated visual scotomas which may represent migraine, Funduscopic exam has been performed does not reveal any abnormality CT the head is negative for intracranial bleed, sensitivity of CT of the first 6-8 hours th e onset of headache has 99-100% sensitivity for subarachnoid hemorrhage, furthermore headach e was not thunderclap, I have checked intraocular pressures, right eye 17, left eye is 15 visual acuity is 20/40 i n both eyes Patient was quite hypertensive on initial arrival, without any improvement after IV acetami nophen, I did choose IV acetaminophen in order to avoid using narcotics, he is not a naz te for Toradol based on his Coumadin, Patient was having persistently elevated blood pressure and persistent headache, hence I di d give 1 mg of hydromorphone. Repeat exam, patient is feeling better at this time, does not have any tenderness over his temporal artery States is comfortable going home. We will refer him to ophthalmology, he has been instructed to follow up today, 7:13 AM: We will arrange for dial a ride: Patient reevaluation. Patient is stable and feel ing better at this time. I discussed all ED results and my clinical impression with the roberto ent. Patient is ready for discharge. I advised patient as to the time frame for follow up, a nd we discussed the emergent signs and symptoms that would necessitate a return to ED. All q uestions and concerns addressed. Records Reviewed Old medical records. Nursing notes. (Using the electronic record system of [facility]) Laboratory Evaluation Results Procedure Component Value Ref Range Date/Time Comprehensive metabolic panel [[id number]] (Abnormal) Collected: 10/31/14 0542 Order Status: Completed Specimen Information: Blood Updated: 10/31/14 0636 SODIUM 142 135 - 143 mmol/L POTASSIUM 3.2 (L) 3.5 - 4.9 mmol/L CHLORIDE 104 99 - 109 mmol/L CO2 31 23 - 32 mmol/L ANION GAP AGAP 9 5 - 20 mmol/L GLUCOSE 160 (H) 65 - 99 mg/dL BUN 14 8 - 25 mg/dL CREATININE 0.91 0.70 - 1.30 mg/dL BUN/CREAT 15 CALCIUM 8.7 8.5 - 10.5 mg/dL TOTAL PROTEIN 7.2 6.3 - 8.2 g/dL Albumin 3.3 (L) 3.6 - 5.0 g/dL GLOBULIN 3.9 1.3 - 4.9 g/dL A/G 0.8 (L) 1.0 - 2.4 TBIL 0.3 0.1 - 1.5 mg/dL ALK PHOS 91 35 - 115 U/L AST 15 10 - 45 U/L ALT 26 10 - 65 U/L EGFR >60 >60 mL/min/1.73m2 aPTT [[id number]] Collected: 10/31/14541 Order Status: Completed Specimen Information: Blood Updated: 10/31/14634 APTT 31 23 - 32 seconds Protime [[id number]] Collected: 10/31/14541 Order Status: Completed Specimen Information: Blood Updated: 10/31/14634 INR 1.7 CBC with differential [[id number]] (Abnormal) Collected: 10/31/14541 Order Status: Completed Specimen Information: Blood Updated: 10/31/1408 WBC 7.79 3.80 - 11.00 K/uL RBC 5.01 4.20 - 5.70 M/uL HGB 12.5 (L) 13.2 - 17.0 g/dL HCT 38.2 (L) 39.0 - 50.0 % MCV 76.1 (L) 80.0 - 100.0 fl MCH 24.9 (L) 27.0 - 34.0 pg MCHC 32.7 32.0 - 35.5 g/dL RDW SD 42.4 37 - 53 fl PLT 285 150 - 400 K/uL MPV 7.7 fl DIFF TYPE AUTOMATED NEUTROPHILS 44.69 % LYMPHOCYTES 39.89 % MONOCYTES 10.40 % EOSINOPHILS 4.08 % BASOPHILS 0.94 % NEUTROPHILS ABS 3.48 1.90 - 7.40 K/uL LYMPHOCYTES ABS 3.11 1.00 - 3.90 K/uL MONOCYTES ABS 0.81 (H) 0.00 - 0.80 K/uL EOSINOPHILS ABS 0.32 0.00 - 0.50 K/uL BASOPHILS ABS 0.07 0.00 - 0.10 K/uL I personally reviewed the lab results and they have been posted to the chart at the time of the patients disposition. Radiology and EKG Evaluation Imaging Results CT Head Non-Contrast (Final result) Result time: 10/31/14 06:06:20 Preliminary result by Rad Results In Richard (10/31/14 06:06:20) Impression: Stable negative head CT. [facility] Read by Kevyn Gutierrez MD on Oct 31 2014 6:06AM Final result by Rad Results In Richard (10/31/14 06:06:12) Impression: Stable negative head CT. [facility] Electronically signed by Kevyn Gutierrez MD on Oct 31 2014 6:06AM Referring Provider Ara bonilla: [phone] ID: [id number] Narrative: EXAM: CT HEAD EXAM DATE: 10/31/2014 05:55 AM. CLINICAL HISTORY: Headache. COMPARISON: 07/29/14. TECHNIQUE: Multiaxial CT images were obtained from the foramen magnum to the vertex. IV con trast: None. FINDINGS: Parenchyma: No intraparenchymal hemorrhage. No evidence of mass, midline shift or CT findin gs of infarction. Morrissey-white differentiation is distinct. Minimal low-attenuation changes in the periventricular white matter again noted. Extraaxial Spaces: Normal for age. No subdural or epidural collections identified. Ventricles: Normal in size and position. Sinuses: Imaged paranasal sinuses, orbits, and mastoids show no significant abnormality. Bones: No evidence of fracture or calvarial defect. Other: None. ED Diagnosis Final diagnosis Acute nonintractable headache, unspecified headache type Disposition: ED Disposition Discharge Condition at discharge: Stable Follow-up Information Follow up With Details Comments Contact Info Jerrell Gutiérrez DO Call and schedule appointment for next available [address] [facility] [address] [facility] [address] [facility] Emergency Department If symptoms worsen [address] [facility] [address] Discharge Medications: New Prescriptions No new medications This document has been prepared with a voice recognition system. The possibility of "sound alike" bank clerk errors, and additions or deletions may occur. If there is any questio n, with respect to clarity of the message being conveyed, please contact me directly for cla rification. Any physical exam findings mentioned in the MDM take precedence over findings listed in phy sical exam section. Procedures Additional Documentation Procedures Attending Note: Documentation assistance provided by Sigifredo Alamo (Scribe). Information recorded by the scribe has been reviewed and validated by me. I ag qian with its contents. Marcos Nugent MD, MPH Marcos Nugent MD 10/31/14 0717 Marcos Nugent MD 10/31/14 0718 documented in this encounter Plan of Treatment +--------+---------+ + + + | Date | Type | Specialty | Care Team | Description | +--------+---------+ + + + | 09/10/ | Office | Geriatric Medicine | Mierya Pack, | | | 2019 | Visit | | CHIEF ENGINEER [address] | | | | | | [address] [place], | | | | | | [place] [address] | | | | | | [phone] | | | | | | | | +--------+---------+ + + + | 09/29/ | Office | Urology | Mireya Pack, | | | 2019 | Visit | | CHIEF ENGINEER [address] | | | | | | [address] [place], | | | | | | [place] [address] | | | | | | [phone] | | | | | | | | | | | | Toy Wild DO | | | | | | [address] | | | | | | [place] [address] | | | | | | [phone] | | | | | | | | +--------+---------+ + + + documented as of this encounter Procedures + +--------+ + + + | Procedure Name | Priori | Date/Time | Associated Diagnosis | Comments | | | ty | | | | + +--------+ + + + | CT HEAD WO CONTRAST | Routin | 10/31/2014 | | Results for this | | | e | 5:54 AM | | procedure are in the | | | | PDT | | results section. | + +--------+ + + + | EXTERNAL LAB: CBC | Routin | 10/31/2014 | | Results for this | | | e | 5:42 AM | | procedure are in the | | | | PDT | | results section. | + +--------+ + + + | PTT | Routin | 10/31/2014 | | Results for this | | | e | 5:42 AM | | procedure are in the | | | | PDT | | results section. | + +--------+ + + + | PROTIME INR | Routin | 10/31/2014 | | Results for this | | | e | 5:42 AM | | procedure are in the | | | | PDT | | results section. | + +--------+ + + + | COMPREHENSIVE | Routin | 10/31/2014 | | Results for this | | METABOLIC PANEL | e | 5:42 AM | | procedure are in the | | | | PDT | | results section. | + +--------+ + + + documented in this encounter Results CT Head wo Contrast (10/31/2014 5:54 AM PDT) + + | Specimen | + + | | + + + + + | Impressions | Performed At | + + + | Stable negative head CT. [facility] Electronically signed by | | | Kevyn Gutierrez MD on Oct 31 2014 6:06AM Referring Provider Line: | | | [phone] ID: [id number] | | + + + + + + | Narrative | Performed At | + + + | EXAM: CT HEAD EXAM DATE: 10/31/2014 05:55 AM. CLINICAL | | | HISTORY: Headache. COMPARISON: 07/29/14. TECHNIQUE: Multiaxial | | | CT images were obtained from the foramen magnum to the vertex. IV | | | contrast: None. FINDINGS: Parenchyma: No intraparenchymal | | | hemorrhage. No evidence of mass, midline shift or CT findings of | | | infarction. Morrissey-white differentiation is distinct. Minimal | | | low-attenuation changes in the periventricular white matter again | | | noted. Extraaxial Spaces: Normal for age. No subdural [...] 10:29 PM PDT EXAM:CT HEAD EXAM DATE: 10/31/2014 05:55 | | AM. CLINICAL HISTORY: Headache. COMPARISON: 07/29/14. TECHNIQUE: Multiaxial CT images | | were obtained from the foramen magnum to the vertex. IV contrast: None. | | FINDINGS:Parenchyma: No intraparenchymal hemorrhage. No evidence of mass, midline shift | | or CT findings of infarction. Morrissey-white differentiation is distinct. Minimal | | low-attenuation changes in the periventricular white matter again noted. Extraaxial | | Spaces: Normal for age. No subdural or epidural collections identified. Ventricles: | | Normal in size and position. Sinuses: Imaged paranasal sinuses, orbits, and mastoids | | show no significant abnormality. Bones: No evidence of fracture or calvarial defect. | | Other: None. IMPRESSION: Stable negative head CT. [facility] Electronically signed by Kevyn | | MD Matt on Oct 31 2014 6:06AM Referring Provider Line: [phone] ID: [id number] | |FINDINGS: | |Parenchyma: No intraparenchymal hemorrhage. No evidence of mass, midline shift or CT findin gs of infarction. Morrissey-white differentiation is distinct. Minimal low-attenuation changes in the periventricular white matter again noted. | | | |Extraaxial Spaces: Normal for age. No subdural or epidural collections identified. | | | |Ventricles: Normal in size and position. | | | |Sinuses: Imaged paranasal sinuses, orbits, and mastoids show no significant abnormality. | | | |Bones: No evidence of fracture or calvarial defect. | | | |Other: None. | | | |IMPRESSION: | | | |Stable negative head CT. | | | |[facility] | | | | Electronically signed by Kevyn Gutierrez MD on Oct 31 2014 6:06AM Referring Provider Ara e: [phone] ID: [id number] | + + PTT (10/31/2014 5:42 AM PDT) + + + + + + | Component | Value | Ref Range | Performed | Pathologist | | | | | At | Signature | + + + + + + | aPTT, | 31Comment: Testing | 23 - 32 seconds | EXTERNAL | | | Patient | performed at [facility];[address] | | LAB | | | [address];[place] | | | | | | [address] | | | | + + + + + + + + | Specimen | + + | Blood specimen | | (specimen) | + + + +---------+ + + | Performing | Address | City/State/Zipcode | Phone Number | | Organization | | | | + +---------+ + + | EXTERNAL LAB | | | | + +---------+ + + Protime INR (10/31/2014 5:42 AM PDT) + + + + + + | Component | Value | Ref Range | Performed | Pathologist | | | | | At | Signature | + + + + + + | INR | 1.7Comment: REFERENCE | | EXTERNAL | | | [...] | | | | | performed at [facility] | | | | | | [address];[place], [place] | | | | | | [address] | | | | + + + [...] + +---------+ + + External Lab: CBC (10/31/2014 5:42 AM PDT) + + + + + + | Component | Value | Ref Range | Performed | Pathologist | | | | | At | Signature | + + + + + + | WBC | 7.79Comment: Testing | 3.80 - 11.00 | EXTERNAL | | | | performed at [facility];[address] | K/uL | LAB | | | | [address];[place] | | | | | | [address] | | | | + + + + + + | Non- | 5.01Comment: Testing | 4.20 - 5.70 | EXTERNAL | | | Red Blood | performed at [facility];[address] | M/uL | LAB | | | Cells | [address];[place] | | | | | Counted | [id number] | | | | + + + + + + | Hemoglobin | 12.5 (L)Comment: Testing | 13.2 - 17.0 | EXTERNAL | | | | performed at [facility];[address] | g/dL | LAB | | | | [address];[place] | | | | | | [address] | | | | + + + + + + | Hematocrit, | 38.2 (L)Comment: Testing | 39.0 - 50.0 % | EXTERNAL | | | POC | performed at [facility];[address] | | LAB | | | | [address];[place] | | | | | | [address] | | | | + + + + + + | MCV | 76.1 (L)Comment: Testing | 80.0 - 100.0 fl | EXTERNAL | | | | performed at [facility];[address] | | LAB | | | | [address];[place] | | | | | | [address] | | | | + + + + + + | MCH | 24.9 (L)Comment: Testing | 27.0 - 34.0 pg | EXTERNAL | | | | performed at [facility];[address] | | LAB | | | | [address];[place] | | | | | | [address] | | | | + + + + + + | MCHC | 32.7Comment: Testing | 32.0 - 35.5 | EXTERNAL | | | | performed at [facility];[address] | g/dL | LAB | | | | [address];[place] | | | | | | [address] | | | | + + + + + + | RDW-CV | 42.4Comment: Testing | 37 - 53 fl | EXTERNAL | | | | performed at [facility];[address] | | LAB | | | | [address];[place] | | | | | | [address] | | | | + + + + + + | Platelet | 285Comment: Testing | 150 - 400 K/uL | EXTERNAL | | | Count | performed at [facility];[address] | | LAB | | | Plasma | [address];[place] | | | | | | [address] | | | | + + + + + + | MPV | 7.7Comment: Testing | fl | EXTERNAL | | | | performed at [facility];[address] | | LAB | | | | [address];[place] | | | | | | [address] | | | | + + + + + + | Differentia | AUTOMATEDComment: | | EXTERNAL | | | l Type | Testing performed at | | LAB | | | | [facility];[address] | [address];[place] [address] | | | | + + + + + + | % Segmented | 44.69Comment: Testing | % | EXTERNAL | | | | performed at [facility];[address] | | LAB | | | Neutrophils | [address];[place] | | | | | | [address] | | | | + + + + + + | % | 39.89Comment: Testing | % | EXTERNAL | | | Lymphocytes | performed at [facility];[address] | | LAB | | | | [address];[place] | | | | | | [address] | | | | + + + + + + | % Monocytes | 10.40Comment: Testing | % | EXTERNAL | | | | performed at [facility];[address] | | LAB | | | | [address];[place] | | | | | | [address] | | | | + + + + + + | % | 4.08Comment: Testing | % | EXTERNAL | | | Eosinophils | performed at [facility];[address] | | LAB | | | | [address];[place] | | | | | | [address] | | | | + + + + + + | % Basophils | 0.94Comment: Testing | % | EXTERNAL | | | | performed at [facility];[address] | | LAB | | | | [address];[place] | | | | | | [address] | | | | + + + + + + | Absolute | 3.48Comment: Testing | 1.90 - 7.40 | EXTERNAL | | | Segmented | performed at [facility];[address] | K/uL | LAB | | | Neutrophils | [address];[place] | | | | | | [address] | | | | + + + + + + | Absolute | 3.11Comment: Testing | 1.00 - 3.90 | EXTERNAL | | | Lymphocytes | performed at [facility];[address] | K/uL | LAB | | | | [address];[place] | | | | | | [address] | | | | + + + + + + | Absolute | 0.81 (H)Comment: Testing | 0.00 - 0.80 | EXTERNAL | | | Monocytes | performed at [facility];[address] | K/uL | LAB | | | | [address];[place] | | | | | | [address] | | | | + + + + + + | Absolute | 0.32Comment: Testing | 0.00 - 0.50 | EXTERNAL | | | Eosinophils | performed at [facility];[address] | K/uL | LAB | | | | [address];[place] | | | | | | [address] | | | | + + + + + + | Absolute | 0.07Comment: Testing | 0.00 - 0.10 | EXTERNAL | | | Basophils | performed at [facility];[address] | K/uL | LAB | | | | [address];[place] | | | | | | [address] | | | | + + + [...] + +---------+ + + Comprehensive Metabolic Panel (10/31/2014 5:42 AM PDT) + + + + + + | Component | Value | Ref Range | Performed | Pathologist | | | | | At | Signature | + + + + + + | Na | 142Comment: Testing | 135 - 143 | EXTERNAL | | | | performed at [facility];[address] | mmol/L | LAB | | | | [address];[place] | | | | | | [address] | | | | + + + + + + | K | 3.2 (L)Comment: Testing | 3.5 - 4.9 | EXTERNAL | | | | performed at [facility];[address] | mmol/L | LAB | | | | [address];[place] | | | | | | [address] | | | | + + + + + + | Cl | 104Comment: Testing | 99 - 109 mmol/L | EXTERNAL | | | | performed at [facility];[address] | | LAB | | | | [address];[place] | | | | | | [address] | | | | + + + + + + | CO2 | 31Comment: Testing | 23 - 32 mmol/L | EXTERNAL | | | | performed at [facility];[address] | | LAB | | | | [address];[place] | | | | | | [address] | | | | + + + + + + | Anion Gap | 9Comment: Testing | 5 - 20 mmol/L | EXTERNAL | | | | performed at [facility];[address] | | LAB | | | | [address];[place] | | | | | | [address] | | | | + + + + + + | Glucose, | 160 (H)Comment: Testing | 65 - 99 mg/dL | EXTERNAL | | | Fasting | performed at [facility];[address] | | LAB | | | | [address];[place] | | | | | | [address] | | | | + + + + + + | BUN | 14Comment: Testing | 8 - 25 mg/dL | EXTERNAL | | | | performed at [facility];[address] | | LAB | | | | [address];[place] | | | | | | [address] | | | | + + + + + + | Creatinine | 0.91Comment: Testing | 0.70 - 1.30 | EXTERNAL | | | | performed at [facility];888 | mg/dL | LAB | | | | [address];[place] | | | | | | [address] | | | | + + + + + + | BUN/Creatin | 15Comment: Testing | | EXTERNAL | | | ine Ratio | performed at [facility];[address] | | LAB | | | | [address];[place] | | | | | | [address] | | | | + + + + + + | Calcium | 8.7Comment: Testing | 8.5 - 10.5 | EXTERNAL | | | | performed at [facility];888 | mg/dL | LAB | | | | [address];[place] | | | | | | [address] | | | | + + + + + + | Protein, | 7.2Comment: Testing | 6.3 - 8.2 g/dL | EXTERNAL | | | Total | performed at [facility];[address] | | LAB | | | | [address];[place] | | | | | | [address] | | | | + + + + + + | Albumin | 3.3 (L)Comment: Testing | 3.6 - 5.0 g/dL | EXTERNAL | | | | performed at [facility];[address] | | LAB | | | | [address];[place] | | | | | | [address] | | | | + + + + + + | Globulin | 3.9Comment: Testing | 1.3 - 4.9 g/dL | EXTERNAL | | | | performed at [facility];[address] | | LAB | | | | [address];[place] | | | | | | [address] | | | | + + + + + + | A/G Ratio | 0.8 (L)Comment: Testing | 1.0 - 2.4 | EXTERNAL | | | | performed at [facility];[address] | | LAB | | | | [address];[place] | | | | | | [address] | | | | + + + + + + | Bilirubin | 0.3Comment: Testing | 0.1 - 1.5 mg/dL | EXTERNAL | | | Total | performed at [facility];[address] | | LAB | | | | [address];[place] | | | | | | [address] | | | | + + + + + + | ALP, | 91Comment: Testing | 35 - 115 U/L | EXTERNAL | | | External | performed at [facility];[address] | | LAB | | | | [address];[place] | | | | | | [address] | | | | + + + + + + | AST | 15Comment: Testing | 10 - 45 U/L | EXTERNAL | | | | performed at [facility];[address] | | LAB | | | | [address];[place] | | | | | | [address] | | | | + + + + + + | ALT | 26Comment: Testing | 10 - 65 U/L | EXTERNAL | | | | performed at [facility];[address] | | LAB | | | | [facility] [address];[place] | | | | | | [address] | | | | + + + [...] | | | | | | at [facility];[address] [facility] | | | | | | [place] [address] | | | | + + + [...] | Diagnosis | + + | Acute nonintractable headache, unspecified headache type | + + documented in this encounter
--- OUTSIDE RECORDS SUMMARY | ~2019-09-09 | XMS | Encounter Summary ---
Demographics + + + | Address | [address] | | | [place] [address] | + + + | Home Phone [...] Sammi Kohler | ECON | [place] [address] | | + + + + + Care Team Providers + +------+ + | Care Lucerne Farmer Name | Role | Phone | + +------+ + | Mik Diego DO | PCP | | + +------+ + Encounter Details +--------+ + + + + | Date | Type | Department | Care Team | Description | +--------+ + + + + | 09/18/ | Orders Only | [facility] | Jevon Vargas | | | 2012 | | [facility] [place] | B, DO [address] | | | | | [address] | | | | | [address] | [place] [address] | | | | | [place], [place] | [phone] | | | | | [address] | | | | | | [phone] | | | +--------+ + + + [...] | | 2019 | Visit | | BANQUET COOK [address] | | | | | | [address] [place], | | | | | | [place] [address] | | | | | | [phone] | | | | | | | | +--------+---------+ + + + | 09/29/ | Office | Urology | Mireya Pack, | | | 2019 | Visit | | BANQUET COOK [address] | | | | | | [address] [place], | | | | | | [place] [address] | | | | | | [phone] | | | | | | | | | | | | Toy Wild, | | | | | | [address] | | | | | | [place] [address] | | | | | | [phone] | | | | | | | | +--------+---------+ + + + documented as of this encounter Procedures + +--------+ + + + | Procedure Name | Priori | Date/Time | Associated Diagnosis | Comments | | | ty | | | | + +--------+ + + + | CULTURE, URINE | STAT | 09/18/2012 | | Results for this | | | | 6:00 AM | | procedure are in the | | | | PDT | | results section. | + +--------+ + + + documented in this encounter Results Culture, Urine (09/18/2012 6:00 AM PDT) + + | Specimen | + + | | + + + + + | Narrative | Performed At | + + + | Specimen Description URINE, COLLECTION NOT | EXTERNAL LAB | | GIVEN Testing | | | performed at [facility];[address] [facility];[place] [address] CULTURE | | | 10,000 TO 50,000 CFU/ML MIXED GRAM | | | POSITIVE AND GRAM NEGATIVE DIDI | | | NO FURTHER WORKUP | | | Testing performed at [facility], [address], | | | [place] [address] REPORT STATUS | | | 09/19/2012 FINAL | | + + + + +---------+ + + | Performing | Address | City/State/Zipcode | Phone Number | | Organization | | | | + +---------+ + + | EXTERNAL LAB | | | | + +---------+ + + documented in this encounter Visit Diagnoses Not on filedocumented in this encounter"
--- OUTSIDE RECORDS SUMMARY | ~2019-09-09 | XMS | Encounter Summary ---
Demographics + + + | Address | [address] | | | [place] [address] | + + + | Home Phone | | + + + | Preferred Language | Unknown | + + + | Marital Status | | + + + | Oriental Orthodox Affiliation | 1027 | + + + | Race | Unknown | + + + | Ethnic Group | Unknown | + + + Author + + + | Author | [facility] | | | and [place] | + + + | Organization | [facility] | | | and [place] | + + + | Address | Unknown | + + + | Phone | Unavailable | + + + Support + + + + + | Name | Relationship | Address | Phone | + + + + + | Sammi Kohler | ECON | [place] [address] | | + + + + + Care Team Providers + +------+ + | Care Oncology Physician Assistant Name | Role | Phone | + +------+ + | Mireya Pack NP | PCP | | + +------+ + Reason for Visit +--------+ + | Reason | Comments | +--------+ + | Other | | +--------+ + Encounter Details +--------+ + + + + | Date | Type | Department | Care Team | Description | +--------+ + + + + | 07/17/ | Telephone | [facility] | Lucia Amos | Other | | 2020 | | [facility] [address] | | | | | [address] | | | | | | [place] | | | | | | [address] | | | | | | [phone] | | | +--------+ + + + [...] Encounter - Lucia Amos RN - 07/18/2019 11:49 AM PDTCall [facility] Mel, vital signs are 180/78, HR 124. Blood sugar 345, patient ate 5am breakfas t today. He drank juice this morning, can not recall time juice was taken. He has not had hi s metformin. Patient cannot really afford his meds. He only has hydralazine, coreg and nifed ipine. No lisinopril, no metformin. He has insulin one more pen for the AM dose and two pens for the PM dose. Pharmacy has dropped him from the program because he keeps on calling for refill and then when it is ready he tells them that he can not afford it so pharmacy has to put the medications back. Clarified with HH that this means pharmacy will not be placing his meds in a bubble pack anymore, they will just give him the bottle. He took his hydralazine this AM. Patient has applied for Medicaid and was denied because he is making too much money. Spendi ng 411 on his monthly rent and paying hospital bills and other stuff. Informed HH Mel booth PCP's message that she agrees with HH calling [facility] regarding patient. She will also ask their NUT THREADER to visit patient in case NUT THREADER might know of something that can help patient out with his medications/resources. Electronically signed by Lucia Amos RN at 0 12:18 PM PDTdocumented in this encounter Plan of Treatment +--------+---------+ + + + | Date | Type | Specialty | Care Team | Description | +--------+---------+ + + + | 09/10/ | Office | Geriatric Medicine | Mireya Pack, | | | 2019 | Visit | | SAMPLE DYE MIXER [address] | | | | | | [address] [place], | | | | | | [place] [address] | | | | | | [phone] | | | | | | | | +--------+---------+ + + + | 09/29/ | Office | Urology | Mireya Pack, | | | 2019 | Visit | | SAMPLE DYE MIXER [address] | | | | | | [address] [place], | | | | | | [place] [address] | | | | | | [phone] | | | | | | | | | | | | Toy Wild, DO | | | | | | [address] | | | | | | [place] [address] | | | | | | [phone] | | | | | | | [...]
--- OUTSIDE RECORDS SUMMARY | ~2019-09-09 | XMS | Encounter Summary ---
Demographics + + + | Address | [address] | | | [place] [address] | + + + | Home Phone | | + + + | Preferred Language | Unknown | + + + | Marital Status | | + + + | Advent Affiliation | 1027 | + + + | Race | Unknown | + + + | Ethnic Group | Unknown | + + + Author + + + | Author | [facility] | | | and [place] | + + + | Organization | [facility] | | | and [place] | + + + | Address | Unknown | + + + | Phone | Unavailable | + + + Support + + + + + | Name | Relationship | Address | Phone | + + + + + | Sammi Kohler | ECON | [place] [address] | | + + + + + Care Team Providers + +------+ + | Care Bargeman Name | Role | Phone | + +------+ + | Mireya Pack NP | PCP | | + +------+ + Reason for Visit + +--------+ + | Reason | Onset | Comments | | | Date | | + +--------+ + | TCM - Hosp FU | 02/08/ | | | | 2020 | | + +--------+ + Encounter Details +--------+ + + + + | Date | Type | Department | Care Team | Description | +--------+ + + + + | 02/08/ | Telephone | [facility] | Sanjuanita Rodriguez RN | TCM - Hosp FU | | 2019 | | [employer] | | | | | | [address] | | | | | | [address] | | | | | | [place] | | | | | | [address] | | | | | | [phone] | | | +--------+ + + + [...] Telephone Encounter - Sanjuanita Rodriguez RN - 02/08/2019 11:10 AM PSTSpoke with gem Bagley name and date of . States "I am doing okay at times, and not okay". Patient states he has had elevated blood pressure which he was seen and treated at [facility]. States capill ankur blood glucose is running 220 - 235 and that he is currently taking 80 units of Levemir n ightly. I let patient know that his last order was for 60 units nightly. Patient has a follo w up appointment with his primary care provider on 04/03/2019. This will be my final [facility] Care Management call. documented in this enc ounter Plan of Treatment +--------+---------+ + + + | Date | Type | Specialty | Care Team | Description | +--------+---------+ + + + | 09/10/ | Office | Geriatric Medicine | Mireya Pack, | | 2019 | Visit | | CORPORATE COORDINATOR [address] | | | | | | [address] [place], | | | | | | [place] [address] | | | | | | [phone] | | | | | | | | +--------+---------+ + + + | 09/29/ | Office | Urology | Mireya Pack, | | | 2020 | Visit | | CORPORATE COORDINATOR [address] | | | | | | [address] [place], | | | | | | [place] [address] | | | | | | [phone] | | | | | | | | | | | | Toy Wild W, DO | | | | | | [address] | | | | | | [place] [address] | | | | | | [phone] | | | | | | | | +--------+---------+ + + + documented as of this encounter Visit Diagnoses Not on filedocumented in this encounter
--- OUTSIDE RECORDS SUMMARY | ~2019-09-09 | XMS | Encounter Summary ---
Demographics + + + | Address | [address] | | | [place] [address] | + + + | Home Phone [...] + | Sammi Kohler | ECON | [place] [address] | | + + + + + Care Team Providers + +------+ + | Care Clay Puddler Name | Role | Phone | + +------+ + PCP | Unavailable | + +------+ + Encounter Details +--------+ + + + + | Date | Type | Department | Care Team | Description | +--------+ + + + + | 11/16/ | Emergency | [facility] | Ramirez, Bimal S, | Closed head injury, | | 2015 | | [facility] | MD Anatoli[address] Cam[address] | initial encounter; | | | | EMERGENCY CENTER | [place], [place] | Forehead contusion, | | | | [address] | [address] | initial encounter | | | | [place], [place] | | | | | | [address] | | | | | | [phone] | | | +--------+ + + + [...] ED Notes Conversion Transaction, Provider Unknown - 11/16/2014 7:33 PM PDTFormatting of this note m ight be different from the original. ED Notes by José Luis Marti RN at 11/16/141932 Author: José Luis Marti RN Service: (none) Author Type: Registered Nurse Filed: 11/16/141933 Date of Service: 11/16/141932 Status: Signed Washing Machine Striper: José Luis Marti RN (Registered Nurse) Pt now c/o CARYN ESPAÑA aware. José Luis Marti RN 11/16/141933 Bimal Cheung MD - 11/16/2014 7:23 PM PDT ED Provider Notes by Bimal Ramirez DO at 11/16/141922 Author: Bimal Ramirez DO Service: (none) Author Type: Physician Filed: 11/16/14 7386 Date of Service: 11/16/141922 Status: Signed Washing Machine Striper: Bimal Ramirez DO (Physician) [facility] Department of Emergency Medicine 7:24 PM 11/16/2014 History of Present Illness Patient Identification Norah Gr is a 58 y.o. male. Patient information was obtained from patient and EMS personnel. History/Exam limitations: none. 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 The patient tripped over his CPAP hose and fell. The patient has had 3-4 falls recently. The has a recent travel history of: none The patient has the following new medications: none The patient has previous encounters for similar chief complaint of fall with previous diagn ostic imaging and consultations. 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 Past Surgical History Procedure Laterality Date Unlisted procedure arthroscopy Knee surgery rt knee, patella Leg surgery LLE Colonoscopy Cholecystectomy, laparoscopic 09/12/2012 Procedure: LAPAROSCOPIC - CHOLECYSTECTOMY; Surgeon: Jevon Vargas DO; Location: [facility] OR; Service: General; 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; Abdominal surgery Cholecystectomy Skin cancer excision 10/10/2012 Procedure: EXCISION - SKIN CANCER; Surgeon: Sy Fierro MD; Location: [facility] ; Service: Plastics; Laterality: Left; upper arm and upper back w/frozen section Esophagogastroduodenoscopy 03/03/2013 Procedure: ESOPHAGOGASTRODUODENOSCOPY; Surgeon: Howie Gibson MD; Location: [facility] ENDOSCOPY; S ervice: Gastroenterology; 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; Colonoscopy 03/04/2013 Procedure: COLONOSCOPY; Surgeon: Howie Gibson MD; Location: [facility]OSCOPY; Service: Gastroe nterology; 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; Upper gastrointestinal endoscopy Skin biopsy Hernia repair 07/03/2013 Procedure: LAPAROSCOPIC - HERNIA - INCISIONAL; Surgeon: Jevon Vargas DO; Location: [facility] OR; Service: General; 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; Skin lesion excision Left 05/05/2014 Procedure: EXCISION - LESION - FROZEN SECTION; Surgeon: Sy Fierro MD; Location: [facility]; Service: Plastics; Laterality: Left; forearm Prior to Admission medications Medication Sig Start Date End Date Taking? Authorizing Provider Albuterol Sulfate (VENTOLIN HFA IN) Inhale 2 puffs into the lungs as needed. 108 mcg/act Historical Provider Gtnwg-Y-Mwgfcqnluipms (BEANO) TABS Take 150 Units by mouth [...] mouth daily with breakfast. 05/08/14 05/08/15 Mervat Flowers, calcium carbonate (TUMS) 500 MG chewable tablet [...] 100 mg by mouth nightly. Historical Provider ozuirqlrg-fdxlspgw-evwwjarqf hydroxide-simethicone Take 40 mLs by mouth daily [...] alone x 1 wk, moved from [facility], , 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 2 [...] sore throat CV/Resp: Negative for chest pain, zhulbbpwe-mg-fimhbo, cough GI: Negative for abdominal pain, nausea, vomiting, or diarrhea : Negative for urinary problems Musculoskeletal: Negative for back pain, joint pain Skin: Positive for laceration and contusion to left forehead Negative for rash Neuro/Psych: Positive for head injury secondary to fall Negative for headache Endo/heme/Lymph: Negative for swollen lymph nodes, easy bruising All other systems reviewed and negative except as noted. Physical Exam BP 151/78 mmHg | Pulse 73 | Temp(Src) 98.1 F (36.7 C) (Oral) | Resp 18 | SpO2 93% Vitals Interpretation: Hypertensive, otherwise WNL Pulse Oximetry interpretation: Normal General: Alert, no active distress and not requiring any emergent interventions Eyes: Normal inspection, pupils equal and round, non-icteric sclera ENT: Ears normal Nose normal without discharge [...] Normal inspection Without tenderness or deformity Skin: Small left supraorbital left forehead contusion that is approximately [address] and 3-4 cm laceration with a small hematoma Color normal Warm and dry Extremities: BARNARD with equal pulses in the upper and lower extremities bilaterally Neuro: No gross motor/sensory deficit GCS 15 No cerebellar deficits Alert and oriented to person, place, time and situation. Medical Decision Making and Emergency Department Course ED Department Course 7:24 PM. The patient presents with the chief complaint of a head injury. My DDx includes b ut is not limited to closed head injury, contusion, abrasion, laceration, ICH, vs other. Griffin pereyra order CT head, INR, and reevaluate the patient. 8:[address] results which shows no intracranial mass, infarct, or intracranial hem orrhage. The patient can be discharged home. 8:29 PM. Patient reevaluation. I discussed the CT result with the patient and the plan to d ischarge home. The patient understands and agrees with the plan. All questions and concerns addressed. I have discussed my clinical impression and treatment plan with the pt. We have specificall y discussed the signs and symptoms that would constitute the need for an immediate return to the ED, the importance of continued outpatient f/u and the importance of compliance with th e d/c instructions. I have answered any questions that the pt has to the best of my ability. Based upon the pt s history, physical exam, ED course, and diagnostic studies, I feel mykel t there is no current emergent medical condition that warrants admission, transfer, or furth er ED treatment at this time. Filed Vitals: 11/16/14192611/16/14201011/16/142054 BP: 151/78 141/67 140/77 Pulse: 73 74 65 Temp: 98.1 F (36.7 C) 98 F (36.7 C) 98.4 F (36.9 C) TempSrc: Oral Oral Oral Resp: 18 18 18 SpO2: 93% 96% 96% ED Medication Administration from 11/16/20141916 to 11/16/20142029 Date/Time Order Dose Route Action Action by 11/16/20142007 acetaminophen (TYLENOL) tablet 1,000 mg 1,000 mg Oral Given José Luis blanchard RN Records Reviewed Old ED records reviewed (Using the electronic record system of [facility], I car efully reviewed the records with regard to the past medical/surgical history, previous medic ations, and allergies). 7:37 PM. Nursing notes reviewed for chief complaint, medications, clinical presentation and vital signs. Laboratory Evaluation Results Procedure Component Value Ref Range Date/Time Protime-INR [[id number]] Collected: 11/16/142015 Order Status: Completed Specimen Information: Blood Updated: 11/16/14 2044 INR 1.5 I personally reviewed the lab results and they have been posted to the chart. Pertinent po sitive and negative findings have been addressed appropriately. Radiology and EKG Evaluation Imaging Results CT Head Non-Con (Final result) Result time: 11/16/14 20:08:57 Final result by Rad Results In Richard (11/16/14 20:08:57) Impression: 1. No acute intracranial pathology with other chronic findings, as above. Narrative: NORAH GR [address] HEAD WO CONTRAST 11/16/2014 7:51 PM INDICATION: Head injury. The patient is taking warfarin. COMPARISON: Head CT dated 10/31/2014. TECHNIQUE: CT scan of the head without contrast. 3/5 mm axial noncontrast images were acqui red from the foramen magnum through the cranial vertex. FINDINGS: No intracranial hemorrhage or contusion is found. Mild diffuse volume loss is lik charisse age-related. Mild infratentorial matter disease is unchanged, likely white matter ischem ic gliosis. No intracranial infarct, mass, or hydrocephalus is noted. A small mucus retentio n cyst is again seen within right anterior ethmoid air cells measuring 7 mm. No mastoid flui d is seen. No skull fractures identified. ED Diagnoses Final diagnoses Closed head injury, initial encounter Forehead contusion, initial encounter Disposition: ED Disposition Discharge Condition at discharge: Stable Follow-up Information Follow up With Details Comments Contact Info [facility] Emergency Department If symptoms worsen [address] [facility] [address] Jerrell Gutiérrez, DO In 1 week For follow up [address] [facility] [address] Discharge Medications: Discharge Medication List as of 11/16/2014 8:54 PM This document has been prepared with a voice recognition system. The possibility of "sound alike" senior accountant errors, addition and/or deletions may occur. If there is any question ashley deleon contact the author of the document. Procedures Additional Documentation Procedures Attending Note: Documentation assistance provided by Dalila Shen (Scribe). Information recorded by the scribe has been reviewed and validated by me. Troy laughlin with its contents. DO Bimal Austin DO 11/16/14 2336 documented in this encounter Plan of Treatment +--------+---------+ + + + | Date | Type | Specialty | Care Team | Description | +--------+---------+ + + + | 09/10/ | Office | Geriatric Medicine | Mireya Pack, | | 2019 | Visit | | [employer]ESP[employer] [address] | | | | | | [address] [place], | | | | | | [place] [address] | | | | | | [phone] | | | | | | | | +--------+---------+ + + + | 09/29/ | Office | Urology | Mireya Pack, | | | 2019 | Visit | | [employer] [address] | | | | | | [address] [place], | | | | | | [place] [address] | | | | | | [phone] | | | | | | | | | | | | Toy Wild W, DO | | | | | | [address] | | | | | | [place] [address] | | | | | | [phone] | | | | | | | | +--------+---------+ + + + documented as of this encounter Procedures + +--------+ + + + | Procedure Name | Priori | Date/Time | Associated Diagnosis | Comments | | | ty | | | | + +--------+ + + + | LATRICEIME INR | Routin | 11/16/2014 | | Results for this | | | e | 8:16 PM | | procedure are in the | | | | PDT | | results section. | + +--------+ + + + | CT HEAD WO CONTRAST | Routin | 11/16/2014 | | Results for this | | | e | 7:51 PM | | procedure are in the | | | | PDT | | results section. | + +--------+ + + + documented in this encounter Results Protime INR (11/16/2014 8:16 PM PDT) + + + + + + | Component | Value | Ref Range | Performed | Pathologist | | | | | At | Signature | + + + + + + | INR | 1.5Comment: REFERENCE | | EXTERNAL | | | [...] | | | | | performed at [facility] [place] | | | | | | [address];[place], [place] | | | | | | [address] | | | | + + + [...] +---------+ + + CT Head wo Contrast (11/16/2014 7:51 PM PDT) + + | Specimen | + + | | + + + + + | Impressions | Performed At | + + + | 1. No acute intracranial pathology with other chronic findings, as | | | above. | | | 8:08 PM | | + + + + + + | Narrative | Performed At | + + + | NORAH GR [address] HEAD WO CONTRAST | | | 11/16/2014 7:51 PM INDICATION: Head injury. The patient is taking | | | warfarin. COMPARISON: Head CT dated 10/31/2014. TECHNIQUE: CT | | | scan of the head without contrast. 3/5 mm axial noncontrast images | | | were acquired from the foramen magnum through the cranial vertex. | | | FINDINGS: No intracranial hemorrhage or contusion is found. Mild | | | diffuse volume loss is likely age-related. Mild infratentorial matter | | | disease is unchanged, likely white matter ischemic gliosis. No | | | intracranial infarct, mass, or hydrocephalus is noted. A small mucus | | | retention cyst is again seen within right anterior ethmoid air cells | | | measuring 7 mm. No mastoid fluid is seen. No skull fractures | | | identified. | | + + + + + | Procedure Note | + + | Richard, Rad Conversion - 09/20/2018 10:29 PM PDT NORAH Andrea SIMÓN years MaleCT | | HEAD WO YDIHAJUW57/11/2015 7:51 PM INDICATION: Head injury. The patient is taking | | warfarin. COMPARISON: Head CT dated 10/31/2014. TECHNIQUE: CT scan of the head without | | contrast. 3/5 mm axial noncontrast images were acquired from the foramen magnum through | | the cranial vertex. FINDINGS: No intracranial hemorrhage or contusion is found. Mild | | diffuse volume loss is likely age-related. Mild infratentorial matter disease is | | unchanged, likely white matter ischemic gliosis. No intracranial infarct, mass, or | | hydrocephalus is noted. A small mucus retention cyst is again seen within right anterior | | ethmoid air cells measuring 7 mm. No mastoid fluid is seen. No skull fractures | | identified. IMPRESSION: 1. No acute intracranial pathology with other chronic findings, | | as above. | | | |FINDINGS: No intracranial hemorrhage or contusion is found. Mild diffuse volume loss is lik charisse age-related. Mild infratentorial matter disease is unchanged, likely white matter ischem ic gliosis. No intracranial infarct, | |mass, or hydrocephalus is noted. A | | small mucus retention cyst is again seen within right anterior ethmoid air cells measuring 7 mm. No mastoid fluid is seen. No skull fractures identified. | | | |IMPRESSION: | |1. No acute intracranial pathology with other chronic findings, as above. | | | | | + + documented in this encounter Visit Diagnoses + + | Diagnosis | + + | Closed head injury, initial encounter | + + | Forehead contusion, initial encounter | + + documented in this encounter
--- OUTSIDE RECORDS SUMMARY | ~2019-09-09 | XMS | Encounter Summary ---
Demographics + + + | Address | [address] | | | [place] [address] | + + + | Home Phone [...] Sammi Kohler | ECON | [place] [address] | | + + + + + Care Team Providers + +------+ + | Care Pasta Maker Name | Role | Phone | + +------+ + | Mireya Pack NP | PCP | | + +------+ + Encounter Details +--------+ + + + + | Date | Type | Department | Care Team | Description | +--------+ + + + + | 07/02/ | Orders Only | [facility] | Scott Martínez MD | | | 2013 | | CONVERSION [address] | [address] | | | | | [address] | [place] [address] | | | | | [place], [place] | [phone] | | | | | [address] | | | | | | [phone] | | | +--------+ + + + [...] | | 2019 | Visit | | [facility] [facility] [address] | | | | | | [address] [place], | | | | | | [place] [address] | | | | | | [phone] | | | | | | | | +--------+---------+ + + + | 09/29/ | Office | Urology | Mireya aPck, | | | 2019 | Visit | | [facility] [facility] [address] | | | | | | [address] [place] | | | | | | [place] [address] | | | | | | [phone] | | | | | | | | | | | | Toy Wild DO | | | | | | [address] | | | | | | [place] [address] | | | | | | [phone] | | | | | | | [...]
--- OUTSIDE RECORDS SUMMARY | ~2019-09-09 | XMS | Encounter Summary ---
Demographics + + + | Address | [address] | | | [place] [address] | + + + | Home Phone | | + + + | Preferred Language | Unknown | + + + | Marital Status | | + + + | Latter-Day Affiliation | [id number] | + + + | Race | Unknown | + + + | Ethnic Group | Unknown | + + + Author + + + | Author | [facility] | | | and [place] | + + + | Organization | [facility] | | | and [place] | + + + | Address | Unknown | + + + | Phone | Unavailable | + + + Support + + + + + | Name | Relationship | Address | Phone | + + + + + | Sammi Kohler | ECON | [place] [address] | | + + + + + Care Team Providers + +------+ + | Care Yardage Control Operator Name | Role | Phone | + +------+ + PCP | Unavailable | + +------+ + Encounter Details +--------+ + + + + | Date | Type | Department | Care Team | Description | +--------+ + + + + | 10/13/ | Hospital | [facility] | Patti Kelly DO | Chest pain, | | 2018 - | Encounter | [facility] | [address] | unspecified type; | | | | CARE FLOOR [address] | [place] [address] | Shortness of breath; | | 10/18/ | | [address] | [phone] | Acute | | 2018 | | [place], [place] | | electrocardiogram | | | | [phone] | | changes; | | | | [phone] | | Neutrophilic | | | | | | leukocytosis; Other | | | | | | acute pulmonary | | | | | | embolism without | | | | | | acute cor pulmonale | | | | | | ([facility]); Essential | | | | | | hypertension; | | | | | | Obstructive sleep | | | | | | apnea syndrome; | | | | | | Paroxysmal atrial | | | | | | fibrillation ([facility]) | +--------+ + + + + Social [...] + + + | Blood Pressure | 155/76 | 10/18/2017 1:23 PM | | | | | PDT | | + + + + + | Pulse | 73 | 10/18/2017 1:23 PM | | | | | PDT | | + + + + + | Temperature | 36.8 C (98.2 F) | 10/18/2017 1:23 PM | | | | | PDT | | + + + + + | Respiratory Rate | 16 | 10/18/2017 1:23 PM | | | | | PDT | | + + + + + | Oxygen Saturation | - | - | | + + + + + | Inhaled Oxygen | - | - | | | Concentration | | | | + + + + + | Weight | 92.1 kg (203 lb) | 10/18/2017 1:23 PM | | | | | PDT | | + + + + + | Height | 180.3 cm (5' 11") | 10/18/2017 1:23 PM | | | | | PDT | | + + + + + | Body Mass Index | 28.31 | 10/18/2017 1:23 PM | | | | | PDT | | + + + + + documented in this encounter Discharge Summaries Bruno Burnham MD - 10/18/2017 10:02 AM PDTFormatting of this note might be different f rom the original. Discharge Summaries by Bruno Burnham MD at 10/18/17 1002 Author: Bruno Burnham MD Service: Hospitalist Author Type: Physician Filed: 10/19/17 0039 Date of Service: 10/18/17 1002 Status: Addendum Thread Separator: Bruno Burnham MD (Physician) Related Notes: Original Note by Bruno Burnham MD (Physician) filed at 10/19/17 0037 Merged With [facility] Service: Hospitalist Discharge Summary Date of Admission: 10/13/2017 Date of Discharge: 10/18/2017 Discharge Provider: Bruno Burnham MD Treatment Team: Admitting Provider: Patti Kelly DO Discharge Diagnoses: Principal Problem: Pulmonary embolism without acute cor pulmonale (HCC) Active Problems: Precordial pain Uncontrolled type 2 diabetes mellitus (HCC) Leukocytosis Acute kidney injury (HCC) Resolved Problems: * No resolved hospital problems. * Procedures: * No surgery found * Chief Complaint: Chest Pain Hospital Course: The patient is a 61 y.o. male with significant past medical history of basal cell carcinoma , COPD, Atrial fibrillation no longer on coumadin,GI bleed, dyslipidemia, WARD, Stroke and Re nal failure who presents with chest pain. Onset was 6 hours ago, with improving course since that time. The patient describes the pain as intermittent, pressure like in nature, radiate s to the left shoulder. Acute PE, solitary small filling defect in left lower lobe per CT angio of chest, no eviden ce of RV strain Continue heparin drip was started, then patient elected to start TERESA, after discussion with risks and benefits of Eliquis he agreed to start Eliquis. He also has Paroxysmal AF ECHO showed possible outflow obstruction, that wasn't appreciated in limited ECHO with va lsalva. Last cardiac catheterization was in 2013 with minimal atherosclerosis, stress test this adm ission is negative for ischemia. Continue BB, ASA, statin Type 2 DM, Poorly controlled with HbA1c 10 levemir dose was increased to 30 units BID and insulin sliding scale He resumed Nebivalol, Norvasc and Lisinopril after discharge, need to follow with PCP for further ajustments, home health was orderedl COPD, Stable continue symbicort, spiriva Prn albuterol He will resume the rest of psychiatric meds. UTI due to Proteus received IV ceftriaxone, that was changed to Bactrim to completed 7 day s of Bactrim and follow UA with PCP. Discharge Exam and Data: Vital Signs: BP 155/76 (BP Location: Left upper arm) | Pulse 73 | Temp 98.2 F (36.8 C) (Oral) | R arlette 16 | Ht 1.803 m (5' 11") | Wt 92.1 kg (203 lb) | SpO2 94% | BMI 28.31 kg/m Physical Examination: Constitutional: Alert and oriented to person, place, [...] tone. Coordination norm al. Skin: Skin is warm. No pallor. Psychiatric: Has a normal mood and affect. Behavior is normal. Judgment normal. Labs: Recent Labs Lab 10/17/1752110/16/176 10/15/17 0119 WBC 9.58 10.92 10.57 HGB 12.9* 12.5* 12.2* HCT 37.2* 36.4* 35.1* PLT 287 275 273 NEUTOPHILPCT 51.56 60.08 48.17 MONOPCT 9.01 8.99 8.33 Recent Labs Lab 10/17/17 0522 10/16/17 0416 10/15/17 0119 10/14/17 0610 10/13/17 1836 NA 138 138 137 137 131* K 4.0 4.1 4.1 3.8 4.0 CL 101 103 102 100 92* CO2 27 25 24 26 23 BUN 20 21 17 18 23 CREATININE 1.2 1.2 1.1 1.1 1.6* PROT -- -- -- 6.1* 8.8* BILITOT -- -- -- 0.5 0.7 ALT -- -- -- 16 23 AST -- -- -- 19 17 Invalid input(s): LABALBU Recent Labs Lab 10/14/17 0610 MG 1.8 No results for input(s): AMYLASE in the last 168 hours. No results for input(s): PHART, PO2ART, FOL5ZSP, B3VZGJSS, BEART in the last 168 hours. Recent Labs Lab 10/18/17 0536 10/17/17 1944 10/17/17 1242 10/17/17 0522 10/16/17 0416 APTT 66* 49* 62* 71* 63* INR 2.2 -- -- 1.4 1.1 Recent Labs Lab 10/14/17 1820 10/14/17 1147 10/14/17 0611 CKTOTAL 61 77 79 TROPONINI <0.020 <0.02 0.03 CKMBINDEX 7.0 8.1 8.4 Significant Diagnostic Studies: Xr Chest Pa And Lateral Result Date: 10/13/2017 NORAH Emre SIMÓN XR CHEST 2 VIEW FRONTAL AND LATERAL 10/13/2017 7:42 PM HISTORY: 61 years. Male . Chest pain TECHNIQUE: XR CHEST 2 VIEW FRONTAL AND LATERAL. Standard technique. Total of 4 images obtained. COMPARISON: None. FINDINGS: The lungs and pleural spaces are clear. The cardiac silhouette and pulmonary vasculature are normal. No hilar or mediastinal adenopathy . Osseous structures are unremarkable. 1. No radiographic findings of acute pulmonary disease to account for patient's symptomato logy. Correlate clinically. P M Nm Myocardial Perfusion Spect (stress And Rest) Result Date: 10/16/2017 NORAH Emre SIMÓN NM MYOCARDIAL PERFUSION SPECT - STRESS AND REST 10/16/2017 9:40 AM HISTORY: 61 years. Male. Chest pain. TECHNIQUE: A same day, dual-isotope protocol was used. For the resting portion of the study the patient was injected intravenously with 11 mCi of technetiu m 99 labeled Myoview. Gated SPECT imaging was performed in the supine position. The patient was then pharmacologically stressed with 0.4 mg of regadenoson intravenously according to p rotocol. Resting heart rate vasiliy from 51 beats/min to 82 beats/min which was 51% of the max imum age-predicted heart rate. At the point of maximum stress, the patient received 33 mCi of technetium 99m labeled Myoview intravenously. Gated SPECT images were acquired in the haynes pine position only. The patient was unable to tolerate prone imaging. Chest pain: None. Arr hythmias: None. ST segment changes: T wave inversion inferolateral leads COMPARISON: None. F INDINGS: All segments of the ventricular myocardium demonstrate normal perfusion, when accou nting for probable diaphragmatic attenuation in the inferior wall. Wall motion is normal in all segments. The following functional stress data was obtained: End-diastolic volume: 109 m L End-systolic volume: 42 mL Ejection fraction: 62% The following functional rest data was o btained: End-diastolic volume: 110 mL End-systolic volume: 45 mL Ejection fraction: 59% 1. No reversible defects to suggest acute left ventricular ischemia. 2. Left ventricular stress ejection fraction is calculated at 62%. Using the risk stratification system at [facility], this examination equates to at least a low risk based on this imaging, arising f rom the criteria below (1). Note that this should be interfaced with clinical and other data , potentially affecting final categorization. 1. [employer] and [employer] Scientific Statement. Circulation (2008); 118: p 1404-6870 Selection Destin t Definition Low Risk 1.Normal or small myocardial perfusion defect at rest or with stress. * 2. No change of resting wall motion abnormalities during stress* . * Although the publishe d data are limited, patients with these findings will probably not be at low risk in the pre sence of either a high-risk treadmill score or severe resting left ventricular dysfunction ( LVEF <35%). Low risk equates with a less than 1% annual mortality rate. Intermediate Risk 1 . Mild/moderate resting left ventricular dysfunction (LVEF=35% to 49%). 2. Stress-induced m oderate perfusion defect without LV dilation or increased lung intake Intermediate risk equa sarah with a 1%-3% annual mortality rate. High Risk 1. Severe resting left ventricular dysfun ction (exercise LVEF <35%) 2. Severe exercise left ventricular dysfunction (exercise LVEF < 35%) 3. Stress-induced large perfusion defect (particularly if anterior) 4. Stress-induced multiple perfusion defects of moderate size 5. Large, fixed perfusion defect with LV dilat ion 6. Stress-induced moderate perfusion defect with LV dilation High risk equates with a g reater than 3% annual mortality rate. 1. Electronically signed by Sravan Gutierrez MD on 10/07 9:[address] Chest Pe Protocol Result Date: 10/13/2017 NORAH GR CTA CHEST PULMONARY EMBOLISM W CONTRAST 10/13/2017 11:19 PM HISTORY: 61 years. Male. Pleuritic chest pain and shortness of breath rule out pulmonary emboli TECHNIQUE: 1. 5-mm axial images of the chest were acquired in the arterial phase according to a CT angiogr aphy protocol. Coronal CT angiographic MIP reconstructions were performed. IV contrast: 70 mL IsoVue 370 Dose reduction techniques were used including automated exposure control (AEC) , iterative reconstruction technique, and/or mA and/or kV dose adjustments based on patient size COMPARISON: 12/27/2014 FINDINGS: CT ANGIOGRAM: The pulmonary arterial tree is well opac ified. Pulmonary arteries are normal in caliber. There is a single intraluminal filling defe ct in the right lower lobe artery (126/2) the remainder of the pulmonary arteries have no fi lling defects. 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 No dis section, aneurysm or stenosis is seen in the aorta or great vessels. No aneurysmal dilatatio n. No evidence of dissection. The heart is normal in size. No pericardial abnormality is no tasia. No filling defects are seen in the chambers of the heart to suggest clot or tumor. CT CHEST: The lungs are well aerated. No acute airspace disease, parenchymal nodule, mass, ple ural effusion or pneumothorax is noted. No bronchiectasis is seen. The thyroid is symmetric and shows no evidence of a solid or cystic mass. No bulky adenopathy is seen in the lower n odal stations of the neck, axillary regions, mediastinum or hilar regions. The thoracic esop hagus is normal. No hiatal hernia is seen. The muscles of the chest are symmetric. No foca l atrophy or soft tissue mass is seen. The osseous structures of the chest do not demonstrat e lytic or blastic lesions. Scan was continued into the upper portion of the abdomen there i s no free air or free fluid 1. Solitary small filling defect in the right lower lobe pulmonary artery. 2. Otherwise n ormal CTA of the chest no aortic dissection Us Lower Extremity Venous Doppler Bilateral Result Date: 10/14/2017 HISTORY: 61 -year-old male with swelling TECHNIQUE: Ultrasound of the bilateral lower extr emity deep venous systems. No prior similar study available for comparison. This is a true duplex examination with generation and interrogation of Doppler spectral analysis, color huyen w and investigation waveforms. Where investigated, these findings were unremarkable and supp ortive of the conclusions of the attached report. FINDINGS: Normal compression, color flow, respiratory variation and mechanical augmentation at all interrogated points demonstrated.. Duplex examination demonstrating normal color flow, Doppler spectral analysis as expected fo r the venous structures here. Incidental findings none No evidence of deep venous thrombosis Electronically signed by Elias Underwood MD on 10/14 4:43 PM Echo Cardiac Adult Complete Result Date: 10/14/2017 Patient Name: NORAH GR Date of : 1955 Performing Physi royer: Vel Ingram VENU CATIONS ABNORMAL EKG CONCLUSIONS 1. Left ventricular systolic functi on is hyperdynamic with an estimated EF of >70%. 2. There is moderate concentric left ventri cular hypertrophy. 3. There is a mild resting gradient of 15 mm Hg noted in the LVOT (not ev aluated with Valsalva) which likely contributes to the measured mild gradient across the aor tic valve. No EDUARDO or significant resting LVOT obstruction, but a hypertrophic cardiomyopathy cannot be excluded. A repeat limited echocardiogram with LVOT gradient measurement with Va lsalva is suggested (and if this is abnormal, a cardiac MRI should be considered). 4. The ri ght ventricle is normal in size and function. The poor TR signal prevents accurate estimati on of pulmonary pressures. 5. No significant valvular abnormalities are noted. FINDINGS ---- ---- ECG rhythm: Sinus rhythm. Study: A 2-dimensional transthoracic echocardiogram with m-mo de, spectral and color flow Doppler was perfomed. Study: This was a technically adequate kyung dy. Left Ventricle: Left ventricular systolic function is hyperdynamic with an estimated EF of >70%. Left Ventricle: The left ventricle cavity size is normal. Left Ventricle: There is moderate concentric left ventricular hypertrophy, with wall thickness significantly increase d from the measurements on the prior study (IVS 1.0 cm, PW 1.1 cm). Indeterminate diastolic function. There is a mild resting gradient of 15 mm Hg noted in the LVOT (not evaluated wit h Valsalva) which likely contributes to the measured mild gradient across the aortic valve. Left Ventricle: No EDUARDO or significant resting LVOT obstruction. Right Ventricle: The right v entricle is normal in size and function. Left Atrium: The left atrium is mildly dilated, sim ilar to the previous study. Right Atrium: The right atrial size is normal. Aortic Valve: The aortic valve was not well visualized. Aortic Valve: There is mild aortic valve sclerosis wi thout stenosis. Aortic Valve: The aortic valve is mildly calcified. Aortic Valve: There is n o evidence of aortic regurgitation. Mitral Valve: There is trace mitral regurgitation. Noreen l Valve: No evidence of MVP. Mitral Valve: Mild thickening of the anterior mitral valve leaf let. Tricuspid Valve: Trace tricuspid regurgitation present. Tricuspid Valve: The poor TR si gnal prevents accurate estimation of pulmonary pressures. Pulmonic Valve: The pulmonic valve was not well visualized. Pericardium: There is no pericardial effusion. Pericardium: No ple ural effusion seen. IVC/Hepatic Veins: The IVC is normal size (1.5-2.5cm) and collapses >50% with sniff, consistent with central venous pressures of 3 mmHg. Aorta: The aortic root and aortic arch are normal. Aorta: The ascending aorta was measured at 3.9 cm, but this was done on a mild angle, and the true measurement appears to be slightly less. Mass: No mass visual ized Thrombus: No clot visualized Thrombus: No vegetation visualized. Septum: No ASD observe d. Septum: No VSD observed. MEASUREMENTS Ao asc: 3.87 cm Ao sinus: 3.86 cm IVC: 2.16 cm EDV(Teich): 98.55 ml IVSd: 1.38 cm LVIDd: 4.62 cm LVPWd: 1.50 cm LVO T Diam: 2.18 cm %FS: 32.93 % EF(Teich): 61.47 % ESV(Teich): 37.96 ml IVSs: 1.83 cm LVIDs: 3.10 cm LVPWs: 1.82 cm SV(Teich): 60.59 ml RA Major: 4.70 cm RVIDd: 3.66 c m LVEF MOD A2C: 51.69 % SV MOD A2C: 38.84 ml LVEF MOD A4C: 79.10 % SV MOD A4C: 83.44 ml EF Biplane: 68.27 % LVEDV MOD BP: 89.84 ml LVESV MOD BP: 28.50 ml LVEDV MOD A2C: 75.14 ml LVLd A2C: 8.69 cm LVEDV MOD A4C: 105.48 ml LVLd A4C: 8.99 cm LVESV MOD A2C: 36.29 ml LVLs A2C: 6.82 cm LVESV MOD A4C: 22.04 ml LVLs A4C: 6.96 cm LAESV(A-L): 7 8.41 ml LAESV Index (A-L): 36.64 ml/m2 LAAs A2C: 23.48 cm2 LAESV A-L A2C: 71.59 ml FLYNN s A2C: 6.54 cm LAAs A4C: 22.52 cm2 LAESV A-L A4C: 75.20 ml LALs A4C: 5.72 cm TAPSE: 2.33 cm HR: 62.00 BPM AV maxP.57 mmHg AV meanP.25 mmHg AV Vmax: 2.37 m/s AV Vmean: 1.75 m/s AV VTI: 48.49 cm VANE Vmax: 3.09 cm2 VANE (VTI): 3.12 cm2 AVAI Vma x: 0.00 cm2/m2 AVAI (VTI): 0.00 cm2/m2 LVCI Dopp: 4.27 l/minm2 LVCO Dopp: 9.14 l/min HR: 60.40 BPM LVOT maxP.48 mmHg LVOT meanP.68 mmHg LVSI Dopp: 70.75 ml/m2 LVSV Dopp: 151.40 ml LVOT Vmax: 1.96 m/s LVOT Vmean: 1.39 m/s LVOT VTI: 40.54 cm MCO : 379.63 ms MV A Mick: 0.88 m/s MV DecT: 283.92 ms MV E Mick: 0.78 m/s MV E/A Ratio: 0.88 MV PHT: 82.00 ms MVA By PHT: 2.68 cm2 MV A Dur: 125.59 ms Septal e': 0.05 m/s Septal E/e': 13.68 Lateral e': 0.06 m/s Lateral E/e': 11.89 HR: 54.73 BPM PV maxP.50 mmHg PV meanP.68 mmHg PV Vmax: 0.93 m/s PV Vmean: 0.60 m/s PV VTI: 19.67 cm RV S': 0.18 m/s TV A Mick: 0.47 m/s TV Dec [place]: 2.56 m/s2 TV Dec Time: 234.96 ms TV E Mick: 0.60 m/s TV E/A Ratio: 1.27 Diesel Engine Specialist: JEANCARLOS Authenticated by: Vel Ingram Report Date/Time: 10-14-2017 15:29:18 1. Left ventricular systolic function is hyperdynamic with an estimated EF of >70%. 2. Ther e is moderate concentric left ventricular hypertrophy. 3. There is a mild resting gradient o f 15 mm Hg noted in the LVOT (not evaluated with Valsalva) which likely contributes to the m easured mild gradient across the aortic valve. No EDUARDO or significant resting LVOT obstructio n, but a hypertrophic cardiomyopathy cannot be excluded. A repeat limited echocardiogram wi th LVOT gradient measurement with Valsalva is suggested (and if this is abnormal, a cardiac MRI should be considered). 4. The right ventricle is normal in size and function. The poor TR signal prevents accurate estimation of pulmonary pressures. 5. No significant valvular ab normalities are noted. Echo Cardiac Adult Limited Result Date: 10/17/2017 Patient Name: NORAH GR Date of : 1955 Performing Physi royer: VEL INGRAM MD VENU CATIONS Evaluate LVOT with valsalva CONCLUSIONS 1. A limited 2-dimen sional transthoracic echocardiogram with limited spectral and color flow Doppler was perform ed. 2. Left ventricular systolic function is hyperdynamic with an estimated EF of >70%. 3. No EDUARDO. There is a mild resting LVOT gradient, measured at 15 mm Hg on the previous study. On the current study, it was evaluated Valsalva, and increases to only 19 mm Hg. There is no signficant LVOT obstruction. 4. The right ventricle is normal in size and function. FINDI NGS -------- ECG rhythm: Sinus ECG rhythm: bradycardia (HR 50 bpm). Study: A limited 2-dimen sional transthoracic echocardiogram with limited spectral and color flow Doppler was perform ed. Left Ventricle: Left ventricular systolic function is hyperdynamic with an estimated EF of >70% and near mid-cavitary obliteration on 2-D images. Left Ventricle: There is moderate concentric left ventricular hypertrophy Left Ventricle: with focal hypertrophy of the basal septum. Left Ventricle: No EDUARDO. There is a mild resting LVOT gradient, measured at 15 mm H g on the previous study. On the current study, it was evaluated Valsalva, and increases to only 19 mm Hg. There is no signficant LVOT obstruction. Right Ventricle: The right ventricl e is normal in size and function. Left Atrium: The left atrium is normal in size. Right Atri um: The right atrium is normal in size. Aortic Valve: Aortic valve is trileaflet and is mild ly thickened. Aortic Valve: There is no evidence of aortic regurgitation. Aortic Valve: Ther e is no evidence of aortic stenosis. Mitral Valve: No evidence of MVP Mitral Valve: Mild thi ckening of the anterior mitral valve leaflet. MEASUREMENTS HR: 52.65 BPM AV maxP.53 mmHg AV meanP.36 mmHg AV Vmax: 2.09 m/s AV Vmean: 1.24 m/s AV VTI: 36.25 cm HR: 56.79 BPM LVOT maxP.65 mmHg LVOT meanP.77 mmHg LVOT Vmax: 1. 97 m/s LVOT Vmean: 1.31 m/s LVOT VTI: 35.95 cm Diesel Engine Specialist: Authenticated by: GINA INGRAM MD Report Date/Time: 10-17-2017 18:51:49 1. A limited 2-dimensional transthoracic echocardiogram with limited spectral and color huyen w Doppler was performed. 2. Left ventricular systolic function is hyperdynamic with an trae mated EF of >70%. 3. No EDUARDO. There is a mild resting LVOT gradient, measured at 15 mm Hg on the previous study. On the current study, it was evaluated Valsalva, and increases to only 19 mm Hg. There is no signficant LVOT obstruction. 4. The right ventricle is normal in siz e and function. Discharge Information: Follow up: Anthony Goodson, COMMERCIAL ATTORNEY [address] [address] Follow up on 11/06/2017 You have an appointment to establish care on the above date at 1:20 pm, please arrive 15 mi ns before start of the appointment. Medication List START taking these medications apixaban 5 MG tablet QTY: 60 tablet Refills: 3 Commonly known as: ELIQUIS Take 1 tablet by mouth 2 (two) times daily. sulfamethoxazole-trimethoprim 800-160 MG per tablet QTY: 12 tablet Refills: 0 Commonly known as: BACTRIM DS Take 1 tablet by mouth every 12 (twelve) hours for 6 days. CHANGE how you take these medications insulin detemir 100 UNIT/ML injection QTY: 10 mL Refills: 12 Commonly known as: LEVEMIR Inject 30 Units into the skin 2 (two) times daily. Inject 45 units subcutaneous at bedtime What changed: how much to take when to take this lisinopril 40 MG tablet QTY: 60 tablet Refills: 0 Commonly known as: ZESTRIL Take 1 tablet by mouth daily for 30 days. What changed: how much to take when to take this CONTINUE taking these medications amLODIPine 10 MG tablet QTY: 30 tablet Refills: 1 Commonly known as: NORVASC Take 0.5 tablets by mouth daily. antipyrine-benzocaine otic solution Refills: 0 Commonly known as: AURALGAN ARIPiprazole 10 MG tablet Refills: 0 Commonly known as: ABILIFY BEANO Tabs Refills: 0 calcium carbonate 500 MG chewable tablet Refills: 0 Commonly known as: TUMS clonazePAM 1 MG tablet Refills: 0 Commonly known as: KlonoPIN DULERA 100-5 MCG/ACT inhaler Refills: 0 Generic drug: mometasone-formoterol fenofibrate 160 MG tablet Refills: 0 fluconazole 150 MG tablet QTY: 4 tablet Refills: 0 Commonly known as: DIFLUCAN Take 1 pill once a week for 4 weeks in a row. gabapentin 100 MG capsule Refills: 0 Commonly known as: NEURONTIN HYDROcodone-acetaminophen 5-325 MG per tablet Refills: 0 Commonly known as: NORCO hydrOXYzine 25 MG capsule Refills: 0 Commonly known as: VISTARIL lamoTRIgine 100 MG tablet Refills: 0 Commonly known as: LaMICtal geewzyadr-ukpbbtym-pfduggevg hydroxide-simethicone Refills: 0 lithium 300 MG CR tablet Refills: 0 [...] 181-210= 7U, 211- omeprazole 20 MG capsule Refills: 0 Commonly known as: PRILOSEC ondansetron 4 MG disintegrating tablet Refills: 0 Commonly known as: ZOFRAN-ODT PARoxetine 40 MG tablet Refills: 0 Commonly known as: PAXIL polyethylene glycol powder QTY: 527 g Refills: 5 Commonly known as: GLYCOLAX DISSOLVE 17GM IN LIQUID AND DRINK BY MOUTH EVERY DAY pravastatin 80 MG tablet Refills: 0 Commonly known as: PRAVACHOL tamsulosin 0.4 MG capsule Refills: 0 Commonly known as: FLOMAX tiotropium 18 MCG inhalation capsule Refills: 0 Commonly known as: SPIRIVA VENTOLIN HFA IN Refills: 0 You might also be taking other medications not listed above. If you have questions about an y of your other medications, talk to the person who prescribed them or your Primary Care Pro vider. STOP taking these medications clonidine Commonly known as: CATAPRES diltiazem 240 MG 24 hr capsule Commonly known as: CARDIZEM CD fluticasone 50 MCG/ACT nasal Commonly known as: FLONASE furosemide 20 MG tablet Commonly known as: LASIX ibuprofen 600 MG tablet Commonly known as: MOTRIN insulin glargine 100 UNIT/ML injection Commonly known as: LANTUS spironolactone-hydrochlorothiazide 25-25 MG per tablet Commonly known as: ALDACTAZIDE warfarin 5 MG tablet Commonly known as: COUMADIN Where to Get Your Medications These medications were sent to [facility], [address] [address] amLODIPine 10 MG tablet insulin detemir 100 UNIT/ML injection lisinopril 40 MG tablet sulfamethoxazole-trimethoprim 800-160 MG per tablet You can get these medications from any pharmacy Bring a paper prescription for each of these medications apixaban 5 MG tablet Disposition: Home Condition: Stable. Code Status: Prior Discharge took 35 minutes, to include final examination, discussion of admission, and prepa ration of prescriptions, instructions for on-going care, follow-up and documentation of disc harge summary. Bruno Burnham MD 12:37 AM 10/19/2017 documented in this encounter Medications at Time [...] Progress Notes Conversion Transaction, Provider Unknown - 10/18/2017 2:33 PM PDTFormatting of this note m ight be different from the original. Progress Notes by Sanjuanita Oliva RD, MARYCARMEN at 10/18/17 1136 Author: Sanjuanita Oliva RD, MARYCARMEN Service: (none) Author Type: Rapid Outsole Stitcher Filed: 10/18/17 8943 Date of Service: 10/18/171432 Status: Signed Thread Separator: Sanjuanita Oliva RD, MARYCARMEN (Rapid Outsole Stitcher) Met briefly with pt. Is ready for discharge. Reports at home he takes: 45 units of insul in at bedtime and he takes 15 units with each meal. States he checks his blood sugars at [facility] and that he follows up with Fanny Ramírez for his diabetes management. He states he kelley s insulin at home and he has strips for his meter. Sounds like he injects and stores his in sulin properly. Reviewed pt's HbA1c of 10.3 - states he doesn't know why it's so high. He will resume home regimen for diabetes and follow up with his pcp for further diabetes ma nagement. Sanjuanita Oliva RD, MPH, CDE, Rapid Outsole Stitcher 10/18/2017 2:37 PM onver ivana Transaction, Provider Unknown - 10/18/2017 1:58 PM PDT Nurse Progress Note by Diane Richard RN at 10/18/17 1358 Author: Diane Richard RN Service: (none) Author Type: Registered Nurse Filed: 10/18/17 1359 Date of Service: 10/18/17 1358 Status: Signed Thread Separator: Diane Richard RN (Registered Nurse) Discharge instructions given by EVE Dominique and understood. Prescription delivered to room. I V removed. Pt waiting for ride. onver ivana Transaction, Provider Unknown - 10/18/2017 11:17 AM PDT Case Management by Leanna Leblanc RN at 10/18/17 1117 Author: Leanna Leblanc RN Service: (none) Author Type: Registered Nurse Filed: 10/18/17 1337 Date of Service: 10/18/17 1117 Status: Addendum Thread Separator: Leanna Leblanc RN (Registered Nurse) Related Notes: Original Note by Leanna Leblanc RN (Registered Nurse) filed at 10/18/17 1226 Discharge planning: Signed prescription for Eliquis [facility] [phone]. 1100: CM was informed By pt has requested to change PCP's and requested one from [facility] . 1215: CM met with pt to confirm request for new PCP, pt confirmed he wants to remain with [facility]. GPS e-mailed, awaiting scheduled appointment. Pt informed CM he has transportation back to his apartment, was offered Home Health, pt ref used. 1334: Pt is scheduled to see Bill Goodson NP on November 06 at 1320 hrs, information was ente red in the AVS, appointment with Dr Car was cancelled. onver ivana Transaction, Provider Unknown - 10/18/2017 6:17 AM PDT Nurse Progress Note by Bucky Castrejon RN at 10/18/17 0617 Author: Bucky Castrejon RN Service: (none) Author Type: Registered Nurse Filed: 10/18/17 0640 Date of Service: 10/18/17 0617 Status: Addendum Thread Separator: Bucky Castrejon RN (Registered Nurse) Related Notes: Original Note by Bukcy Castrejon RN (Registered Nurse) filed at 0620 No acute events. INR 2.2. SBP in the 160's, HR 50's-60's. Chart check complete. onver ivana Transaction, Provider Unknown - 10/17/2017 7:33 PM PDT Nurse Progress Note by Randa Gr RN at 10/17/171932 Author: Randa Gr RN Service: (none) Author Type: Registered Nurse Filed: 10/17/171932 Date of Service: 10/17/171932 Status: Signed Thread Separator: Randa Gr RN (Registered Nurse) No significant changes from shift assessment. No falls or new signs of skin breakdown. No c omplaints of pain, nausea or SOB. VSS for remainder of shift. WCM End of shift chart check done. onver ivana Transaction, Provider Unknown - 10/17/2017 11:22 AM PDT Nurse Progress Note by Diane Richard RN at 10/17/171121 Author: Diane Richard RN Service: (none) Author Type: Registered Nurse Filed: 10/17/17 1129 Date of Service: 10/17/17 1122 Status: Signed Thread Separator: Diane Richard RN (Registered Nurse) Handoff given to EVE Tolention onver ivana Transaction, Provider Unknown - 10/17/2017 10:38 AM PDT Progress Notes by RYAN Conti at 10/17/17 1038 Author: RYAN Conti Service: Pharmacy Author Type: Pharmacist Filed: 10/17/17 1038 Date of Service: 10/17/17 1038 Status: Attested Thread Separator: RYAN Cotni (Pharmacist) Cosigner: Nani Lind RPH at 10/17/17 1044 Attestation signed by Nani Lind RPH at 10/17/17 1044 Agree with clinical pharmacy specialist assessment and recommendation to transition to oral bactrim th erapy for continued UTI treatment based on organism growth in urine culture. Reviewed and di scussed clinical profile with patient Nani Lind-PharmD Antimicrobial Stewardship Team Note De-Escalation Recommendation Patient: Norah Gr Attending: Bruno Burnham MD Admission Date: [id number] Current Antimicrobial Medications: Anti-infectives Start Dose/Rate Route Frequency Ordered Stop 10/15/17 1030 cefTRIAXone (ROCEPHIN) IVPB 1 g Ordering Provider: Mel Velásquez MD 1 g 100 mL/hr over 30 Minutes Intravenous Every 24 Hours 10/15/17 0955 Current Labs: Lab Results Component Value Date/Time WBC 9.58 10/17/2017 05:22 AM WBC 10.92 10/16/2017 04:16 AM WBC 10.57 10/15/2017 01:19 AM Current Indication: Treatment Indication: Urinary Tract Infection Assessment/Recommendation: Stewardship Recommendation Type: Streamline/Change therapy, Optimize duration of therapy, P arenteral to oral conversion Recommendation: Patient's currently on day 3 ceftriaxone for lower UTI. Urine culture came back today with kunz-sensitive proteus mirialis. All infection markers have been normal [facility] hospitalization except for mild leukocytosis on admit. [facility] Guide recommendations for acute uncomplicated male UTI include Bactrim DS 1 tablet PO twice daily for 7-14 days. S bartolo patient is non-elderly, decent renal function, and normal infection markers, I recommen d switching from IV ceftriaxone to PO bactrim for 5 days for completion of 7-8 days treatmen t. Submitted by: RYAN Alvarado ( ) Disclaimer: The recommendations from the Antibiotic Stewardship Program are derived from a review of the medical records and not a history and/or physical. The recommendations are n ot a substitute for either clinical judgement or an infectious disease consultation and are not binding. Bruno Hector MD - 10/17/2017 9:20 AM PDT Progress Notes by Bruno Burnham MD at 10/17/17919 Author: Bruno Burnham MD Service: Hospitalist Author Type: Physician Filed: 10/17/172028 Date of Service: 10/17/17919 Status: Addendum Thread Separator: Bruno Burnham MD (Physician) Related Notes: Original Note by Bruno Burnham MD (Physician) filed at 10/17/172026 Merged With [facility] Service: Hospitalist Progress Note Pt: Norah Gr AGE/SEX: 61 y.o. male ROOM: 4464/4464-1 : 1955 PCP: Lou Preston ADMIT DATE: 10/13/2017 TODAY'S DATE: 10/17/2017 Hospital Day/Hospital Course: LOS: 3 days SUBJECTIVE: Patient seen and examine. Complaint of improving shortness of breath, no chest pain. Scheduled Medications: ARIPiprazole 10 mg Oral Daily aspirin 81 mg Oral Daily with breakfast atorvastatin 40 mg Oral Nightly budesonide-formoterol 2 puff Inhalation 2 times daily carvedilol 3.125 mg Oral BID WC clonazePAM 1 mg Oral Daily famotidine 20 mg Oral BID Or famotidine 20 mg Intravenous BID gabapentin 100 mg Oral Nightly insulin detemir 30 Units Subcutaneous BID insulin lispro (human) 0-14 Units Subcutaneous TID AC insulin lispro (human) 0-7 Units Subcutaneous Nightly lamoTRIgine 100 mg Oral Nightly lithium carbonate 150 mg Oral 4x Daily pantoprazole 40 mg Oral QAM AC PARoxetine 40 mg Oral QAM sulfamethoxazole-trimethoprim 1 tablet Oral 2 times per day tamsulosin 0.4 mg Oral BID tiotropium 18 mcg Inhalation Daily warfarin 10 mg Oral Daily Continuous Infusions dextrose heparin 50 units/mL 16 Units/kg/hr (10/17/17 1318) PRN Medications acetaminophen OR acetaminophen, dextrose, dextrose, dextrose, glucagon, glucagon, hepar in (porcine) 5000 unit/0.5mL, heparin (porcine) 5000 unit/0.5mL, HYDROcodone-acetaminophen, hydrOXYzine, morphine, nitroGLYCERIN, ondansetron OR ondansetron, polyethylene glycol, a lbuterol, zolpidem Allergy: Allergies Allergen Reactions Vitamin B12 Rash OBJECTIVE: Vitals: Temp: [97.8 F (36.6 C)-98.1 F (36.7 C)] 98 F (36.7 C) Heart Rate: [46-71] 71 Resp: [17-20] 18 BP: (123-164)/(69-79) 160/75 I&O Detailed Table: Intake/Output Summary (Last 24 hours) at 10/17/172019 Last data filed at 10/17/172001 Gross per 24 hour Intake 818 ml Output 3180 ml Net -2362 ml Patient Vitals for the past 96 hrs: Weight 10/17/17 0309 93 kg (205 lb) 10/16/17 0323 93 kg (205 lb) 10/14/17 0341 93.8 kg (206 lb 12.7 oz) 10/14/17 0055 93.8 kg (206 lb 12.7 oz) Physical Examination: Constitutional: Alert and oriented to person, place, and time. Appears well-developed and w ell-nourished. HEENT: Neck supple, no JVD, non icteric sclera. Cardiovascular: Normal rate, regular rhythm, normal heart [...] There is no rebound and no guarding. Extremeties/Musculoskeletal: Normal range of motion.exhibits no tenderness. exhibits no ed dayana. Normal equal peripheral pulses. Neurological: Alert and oriented to person, place, and time. No cranial nerve deficit. E xhibits normal muscle tone. No gross motor deficits. Skin: Skin is warm. No pallor. Patient has normal capillary refill, no mottling. Psychiatric: Has a normal mood and affect. Behavior is normal. Judgment normal. LABS: Recent Labs Lab 10/17/17 0522 10/16/17 0416 10/15/17 0119 WBC 9.58 10.92 10.57 HGB 12.9* 12.5* 12.2* HCT 37.2* 36.4* 35.1* PLT 287 275 273 NEUTOPHILPCT 51.56 60.08 48.17 MONOPCT 9.01 8.99 8.33 Recent Labs Lab 10/17/17 0522 10/16/17 0416 10/15/17 0119 10/14/17 0610 10/13/17 1836 NA 138 138 137 137 131* K 4.0 4.1 4.1 3.8 4.0 CL 101 103 102 100 92* CO2 27 25 24 26 23 BUN 20 21 17 18 23 CREATININE 1.2 1.2 1.1 1.1 1.6* PROT -- -- -- 6.1* 8.8* BILITOT -- -- -- 0.5 0.7 ALT -- -- -- 16 23 AST -- -- -- 19 17 Phosphorus: Lab Results Component Value Date PHOS 2.9 10/14/2017 Invalid input(s): LABALBU Recent Labs Lab 10/14/17 0610 MG 1.8 No results for input(s): AMYLASE in the last 168 hours. No results for input(s): PHART, PO2ART, XEH5EPQ, Q6OSXNHJ, BEART in the last 168 hours. Recent Labs Lab 10/17/17 1242 10/17/17 0522 10/16/17 0416 10/15/17 0119 APTT 62* 71* 63* < > 45* INR -- 1.4 1.1 -- 1.0 < > = values in this interval not displayed. No results for input(s): TSH, T3FREE, FREET4 in the last 168 hours. Recent Labs Lab 10/14/17 1820 10/14/17 1147 10/14/17 0611 CKTOTAL 61 77 79 TROPONINI <0.020 <0.02 0.03 CKMBINDEX 7.0 8.1 8.4 i PROBLEM LIST Principal Problem: Pulmonary embolism without acute cor pulmonale (HCC) Active Problems: Precordial pain Uncontrolled type 2 diabetes mellitus (HCC) Leukocytosis Acute kidney injury (HCC) ASSESSMENT & PLAN 1. Acute PE, no evidence of RV strain Continue heparin drip overlapped with coumadin need to get more information from his PCP regarding reason for discontinuing anticoagulati on 2. Paroxysmal AF continue coumadin and BB for rate control ECHO showed possible outflow obstruction, ordered limited ECHO with valsalva to evaluate obstructive cardiomyopathy. Last cardiac catheterization was in 2013 with minimal atherosclerosis, stress test this adm ission is negative for ischemia. Continue BB, ASA, statin for now 3. Type 2 DM, Poorly controlled with HbA1c 10 levemir to 30 units BID and insulin sliding scale 4. HTN decrease coreg further to 3.125 mg BID Will continue to hold all her other medications continue to monitor BP 5. CKD stage 3, stable. 6. WARD, CPAP at bedtime 7. COPD, Stable continue symbicort, spiriva Prn albuterol 8. UTI due to Proteus received IV ceftriaxone, that was changed to Bactrim today. 9. DVT prophylaxis, on Heparin drip and Coumadin. Bruno Burnham MD 10/17/2017 8:20 PM onversion Transac tion, Provider Unknown - 10/17/2017 6:44 AM PDTFormatting of this note might be different f rom the original. Nurse Progress Note by Bucky Castrejon RN at 10/17/17643 Author: Bucky Castrejon RN Service: (none) Author Type: Registered Nurse Filed: 10/17/1752 Date of Service: 10/17/17643 Status: Signed Thread Separator: Bucky Castrejon RN (Registered Nurse) No acute events, HR 40-60's during shift. pt still c/o intermittent chest pain. Chart check complete. onver ivana Transaction, Provider Unknown - 10/16/2017 6:40 PM PDT Nurse Progress Note by Flash Gao RN at 10/16/171839 Author: Flash Gao RN Service: (none) Author Type: Registered Nurse Filed: 10/16/171840 Date of Service: 10/16/171839 Status: Signed Thread Separator: Flash Gao RN (Registered Nurse) PRN tylenol given x1 his shift for pleuritic pain in chest. Pt stated that they no longer h ave left shoulder pain just pain in the chest this shift. Stress test completed in am. No ot her acute events this shift. 12 Hr chart check complete. onver ivana Transaction, Provider Unknown - 10/16/2017 4:00 PM PDT Case Management by Leanna Leblanc RN at 10/16/171599 Author: Leanna Leblanc RN Service: (none) Author Type: Registered Nurse Filed: 10/17/17 101 Date of Service: 10/16/171599 Status: Addendum Thread Separator: Leanna Leblanc RN (Registered Nurse) Related Notes: Original Note by Leanna Leblanc RN (Registered Nurse) filed at 10/17/17 1010 Discharge planning: CM met with pt to discuss discharge planning. He indicated he lives alone in an apartment, has a quarter backer once/week for cooking, cleaning and laundry. 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 He is not interested in moving to an [facility] presently, said he lived at an [facility] before, but he did not like it because of his lack of independence. He will think of it in the future when he really needs it. He will like to use [facility] to FU wit his INR's. Konstantin Negron MD - 10/16/2017 12:48 PM PDTFormatting of this note might be different from the bobbi mounika. Progress Notes by Mel Velásquez MD at 10/16/17 4963 Author: Mel Velásquez MD Service: Hospitalist Author Type: Physician Filed: 10/16/17 3467 Date of Service: 10/16/17 4788 Status: Signed Thread Separator: Mel Velásquez MD (Physician) Merged With [facility] Service: Hospitalist Progress Note Hospital Day: LOS: 2 days SUBJECTIVE Patient Summary: Mr. Gr is a 61 yr old man with hx of basal cell Ca, COPD, AF and is not coumadin, hx of GI bleeding, HDL, WARD, hx of CVA, CKD stage G3, type 2 DM, ?bipolar disorder presented to th e ED with pressure like chest pain, radiating to the left shoulder, worsens with deep breath ing and with walking, associated with dyspnea, palpitation. At the ED patient had stable BP , was tachycardic, afebrile and was saturating well on room air. Serial cardiac enzymes wer e wnl. EKG showed sinus tachycardia, T wave inversion in inferior leads. Ddimer was low. CTA was done anyway and showed a small solitary filling defect in the right lower lobe. Patient was started on heparin drip and coumadin. Events Overnight: Patient was seen today, had no complaint, reports shoulder pain has improved and only has p ain on chest with deep inspiration. Scheduled Medications ARIPiprazole 10 mg Oral Daily aspirin 81 mg Oral Daily with breakfast atorvastatin 40 mg Oral Nightly budesonide-formoterol 2 puff Inhalation 2 times daily carvedilol 12.5 mg Oral BID WC cefTRIAXone 1 g Intravenous Q24H clonazePAM 1 mg Oral Daily famotidine 20 mg Oral BID Or famotidine 20 mg Intravenous BID gabapentin 100 mg Oral Nightly insulin detemir 30 Units Subcutaneous BID insulin lispro (human) 0-14 Units Subcutaneous TID AC insulin lispro (human) 0-7 Units Subcutaneous Nightly lamoTRIgine 100 mg Oral Nightly lithium carbonate 150 mg Oral 4x Daily pantoprazole 40 mg Oral QAM AC PARoxetine 40 mg Oral QAM tamsulosin 0.4 mg Oral BID tiotropium 18 mcg Inhalation Daily warfarin 10 mg Oral Daily Continuous Infusions dextrose heparin 50 units/mL 18 Units/kg/hr (10/16/17 0644) PRN Medications acetaminophen OR acetaminophen, dextrose, dextrose, dextrose, glucagon, glucagon, hepar in (porcine) 5000 unit/0.5mL, heparin (porcine) 5000 unit/0.5mL, HYDROcodone-acetaminophen, hydrOXYzine, morphine, nitroGLYCERIN, ondansetron OR ondansetron, polyethylene glycol, a lbuterol, zolpidem OBJECTIVE Vital Signs: BP 128/65 (BP Location: Left upper arm) | Pulse 63 | Temp 98.2 F (36.8 C) (Oral) | R arlette 18 | Ht 1.803 m (5' 11") | Wt 93 kg (205 lb) | SpO2 95% | BMI 28.59 kg/m Patient Vitals for the past 24 hrs: BP Temp Temp src Pulse Resp SpO2 Weight 10/16/17 1119 128/65 98.2 F (36.8 C) Oral 63 18 95 % - 10/16/17 0715 139/78 97.9 F (36.6 C) Oral 56 18 96 % - 10/16/17 0323 132/71 97.7 F (36.5 C) Oral 51 18 96 % 93 kg (205 lb) 10/15/17 2300 167/72 98 F (36.7 C) Oral 55 18 95 % - 10/15/17 1915 151/68 - - 55 - - - 10/15/17 1903 189/79 97.9 F (36.6 C) Oral 76 18 97 % - 10/15/17 1519 157/72 98.5 F (36.9 C) Oral 55 18 96 % - Intake/Output Summary (Last 24 hours) at 10/16/17 1249 Last data filed at 10/16/17 1130 Gross per 24 hour Intake 2755 ml Output 3355 ml Net -600 ml Physical Exam Constitutional: He is oriented to person, place, and time. Elderly man, sitting up in bed, not in any distress HENT: Head: Normocephalic and atraumatic. Mouth/Throat: Oropharynx is clear and moist. Eyes: Pupils are equal, round, and reactive to light. Conjunctivae are normal. Neck: Normal range of motion. Neck supple. No JVD present. Cardiovascular: Normal rate and regular rhythm. No murmur heard. Pulmonary/Chest: Effort normal and breath sounds normal. He has no wheezes. He has no rales . Abdominal: Soft. Bowel sounds are normal. There is no tenderness. There is no rebound. Musculoskeletal: He exhibits no edema. Lymphadenopathy: He has no cervical adenopathy. Neurological: He is alert and oriented to person, place, and time. No cranial nerve deficit . Skin: Skin is warm and dry. Psychiatric: Mood and affect normal. DATA CBC: Lab Results Component Value Date WBC 10.92 10/16/2017 RBC 4.42 10/16/2017 HGB 12.5 (L) 10/16/2017 HCT 36.4 (L) 10/16/2017 MCV 82.3 10/16/2017 MCH 28.3 10/16/2017 MCHC 34.4 10/16/2017 RDW 45.1 10/16/2017 PLT 275 10/16/2017 MPV 8.2 10/16/2017 DIFFTYPE AUTOMATED 10/16/2017 CMP: Lab Results Component Value Date NA 138 10/16/2017 K 4.1 10/16/2017 CL 103 10/16/2017 CO2 25 10/16/2017 ANIONGAP 14 10/16/2017 GLUF 204 (H) 10/16/2017 BUN 21 10/16/2017 CREATININE 1.2 10/16/2017 CREATININE 1.2 07/08/2013 BCR 18 10/16/2017 CA 9.1 10/16/2017 PROT 6.1 (L) 10/14/2017 ALB 2.6 (L) 10/14/2017 GLOB 3.5 10/14/2017 BILITOT 0.5 10/14/2017 ALP 82 10/14/2017 AST 19 10/14/2017 ALT 16 10/14/2017 EGFR >60 10/16/2017 IMAGES Xr Chest Pa And Lateral Result Date: 10/13/2017 1. No radiographic findings of acute pulmonary disease to account for patient's symptomato logy. Correlate clinically. P M Ct Chest Pe Protocol Result Date: 10/13/2017 1. Solitary small filling defect in the right lower lobe pulmonary artery. 2. Otherwise n ormal CTA of the chest no aortic dissection LEM LIST Principal Problem: Pulmonary embolism without acute cor pulmonale (HCC) Active Problems: Precordial pain Uncontrolled type 2 diabetes mellitus (HCC) Leukocytosis Acute kidney injury (HCC) ASSESSMENT & PLAN Acute PE bilateral LE US w/out evidence of DVT Noted 2Decho readings, no evidence of RV strain Continue heparin drip overlapped with coumadin Will increase coumadin dose to 10mg x 2 days then plan to resume to 5mg daily after Will get more information from his PCP regarding reason for discontinuing anticoagulation Paroxysmal AF [id number] score 4 continue coumadin Telemetry Continue BB for rate control Chest pain, improving Appear more pleuritic or musculoskeletal than cardiac Last cardiac catheterization was in 2013 with minimal atherosclerosis Last stress test in 2014 was normal Pending stress test result Continue BB, ASA, statin for now Type 2 DM Poorly controlled with HbA1c 10 Noted glucose readings Just changed levemir to 30 units BID 10/16/17; will continue to adjust levemir dose based on glucose readings Continue glucose monitoring withinsulin sliding scale HTN Noted BP readings, acceptable HR noted Will decrease coreg further to 6.25mg BID Will continue to hold all her other medications continue to monitor BP CKD stage G3 contiue to monitor renal function Avoid nephrotoxic meds Adjust medication doses accdg to creatinine clearance WARD CPAP at bedtime COPD Stable continue symbicort, spiriva Prn albuterol UTI Pending urine culture continue ceftriaxone Disposition: For discharge once with therapeutic INR Code Status: Full Code Mel Velásquez MD 10/16/2017 12:49 PM onversion Transaction , Provider Unknown - 10/15/2017 6:34 PM PDT Nurse Progress Note by Flash Gao RN at 10/15/171833 Author: Flash Gao RN Service: (none) Author Type: Registered Nurse Filed: 10/15/171835 Date of Service: 10/15/171833 Status: Signed Thread Separator: Flash Gao RN (Registered Nurse) Tele did report that pt did ingrid to the 30's once this shift pt stated they did feel a lit tle light headed. Vital signs checked pt back in the 50's for the duration of the shift. 12 Hr chart check complete onver ivana Transaction, Provider Unknown - 10/15/2017 3:20 PM PDT Case Management by Rimma Sen RN at 10/15/17 1520 Author: Rimma Sen RN Service: (none) Author Type: Registered Nurse Filed: 10/15/17 1528 Date of Service: 10/15/17 152 Status: Signed Thread Separator: Rimma Sen RN (Registered Nurse) 10/15/17 1500 Discharge Planning Evaluation Admitting Diagnosis Lung PE (KESHAWN, pericardial discomfort) Readmission No Living Arrangements Alone Support Systems Family members;Gnosticism/[place] community Type of Residence Private residence House type Apartment (bottom floor) Elevator available No Bathrooms on 1st Floor 1-Full Independent with ADL's Yes Independent with Mobility Yes Home Care Services No Caregiver after Discharge No Mental Status Oriented Prior functional status independent Power of Nailhead Puncher No Anticipated Discharge Plan Post Acute Care Needs None at this time Plan communicated to patient/family Yes Resources Financial concerns No Transportation issues No Patient/Family concerns No Prescription Plan Yes Previous home health equipment No Vascular access device No Ostomy/Drains/Appliances No Anticipated Disposition Facility Type Home Met with patient and discussed discharge planning, Pt is a 61 y.o., male PE, KESHAWN, uncontrol led diabetes. Pt lives alone. Had a recent fall from upstairs apartmen and tumbled down st [place]. Injured his Lt side and broken clavicle bone. Pt now has an apartment on [address] [facility]. Pt . He has a 38 yr old son who is disabled. Pt received assistance fro m parents Edgar & Sammi Kohler. Friend in the complex and uatsdin. Patient's PCP is: Jerrell Diego Patient's insurance: Medicare/Medicaid Coverage concerns: none Medication coverage/concerns: none Rx Bedside Delivery: Community resources utilized / needed: tbd Assistance in transportation: dial a ride Identification of any specific education / training: tbd Barriers to Discharge / Alternative housing needed: none Anticipated DCP: To home, evaluation for HHS. CM to f/u on discharge needs. Jessica Sen RN,BSN,CM Konstantin Negron MD - 10/15/2017 9:00 AM PDTFormatting of this note might be different from the bobbi ribera. Progress Notes by Mel Velásquez MD at 10/15/17899 Author: Mel Velásquez MD Service: Hospitalist Author Type: Physician Filed: 10/15/17 1011 Date of Service: 10/15/17899 Status: Signed Thread Separator: Mel Velásquez MD (Physician) Merged With [facility] Service: Hospitalist Progress Note Hospital Day: LOS: 1 day SUBJECTIVE Patient Summary: Mr. Gr is a 61 yr old man with hx of basal cell Ca, COPD, AF and is not coumadin, hx of GI bleeding, HDL, WARD, hx of CVA, CKD stage G3, type 2 DM, ?bipolar disorder presented to th e ED with pressure like chest pain, radiating to the left shoulder, worsens with deep breath ing and with walking, associated with dyspnea, palpitation. At the ED patient had stable BP , was tachycardic, afebrile and was saturating well on room air. Serial cardiac enzymes wer e wnl. EKG showed sinus tachycardia, T wave inversion in inferior leads. Ddimer was low. CTA was done anyway and showed a small solitary filling defect in the right lower lobe. Patient was started on heparin drip and coumadin. Events Overnight: Patient was seen today, had no complaint, still with chest pain 3-4/10 more musculoskeletal but improved with prn pain medication. Scheduled Medications ARIPiprazole 10 mg Oral Daily aspirin 81 mg Oral Daily with breakfast atorvastatin 40 mg Oral Nightly budesonide-formoterol 2 puff Inhalation 2 times daily carvedilol 12.5 mg Oral BID WC clonazePAM 1 mg Oral Daily famotidine 20 mg Oral BID Or famotidine 20 mg Intravenous BID gabapentin 100 mg Oral Nightly insulin detemir 45 Units Subcutaneous Nightly insulin lispro (human) 0-14 Units Subcutaneous TID AC insulin lispro (human) 0-7 Units Subcutaneous Nightly lamoTRIgine 100 mg Oral Nightly lithium carbonate 150 mg Oral 4x Daily pantoprazole 40 mg Oral QAM AC PARoxetine 40 mg Oral QAM tamsulosin 0.4 mg Oral BID tiotropium 18 mcg Inhalation Daily warfarin 5 mg Oral Daily Continuous Infusions dextrose heparin 50 units/mL 18 Units/kg/hr (10/15/17223) PRN Medications acetaminophen OR acetaminophen, dextrose, dextrose, dextrose, glucagon, glucagon, hepar in (porcine) 5000 unit/0.5mL, heparin (porcine) 5000 unit/0.5mL, HYDROcodone-acetaminophen, hydrOXYzine, morphine, nitroGLYCERIN, ondansetron OR ondansetron, polyethylene glycol, r egadenoson, albuterol, zolpidem OBJECTIVE Vital Signs: BP 143/67 (BP Location: Left upper arm) | Pulse 53 | Temp 98 F (36.7 C) (Oral) | Res p 18 | Ht 1.803 m (5' 11") | Wt 93.8 kg (206 lb 12.7 oz) | SpO2 94% | BMI 28.84 kg/m Patient Vitals for the past 24 hrs: BP Temp Temp src Pulse Resp SpO2 10/15/17 0820 143/67 98 F (36.7 C) Oral 53 18 94 % 10/15/17 0342 117/65 97.7 F (36.5 C) Oral 51 18 98 % 10/14/17 2321 112/58 97.7 F (36.5 C) Oral (!) 42 16 96 % 10/14/17 2300 - - - - - 95 % 10/14/17 2251 103/65 - - (!) 40 - - 10/14/17 1926 114/65 98.3 F (36.8 C) Oral 60 18 94 % 10/14/17 1747 151/68 - - 65 - - 10/14/17 1542 133/69 98.4 F (36.9 C) Oral 64 18 94 % 10/14/17 1106 147/76 98.3 F (36.8 C) Oral 68 19 96 % Intake/Output Summary (Last 24 hours) at 10/15/17 0900 Last data filed at 10/15/17 0758 Gross per 24 hour Intake 2832.66 ml Output 2230 ml Net 602.66 ml Physical Exam Constitutional: He is oriented to person, place, and time. Elderly man, sitting up in bed, not in any distress HENT: Head: Normocephalic and atraumatic. Mouth/Throat: Oropharynx is clear and moist. Eyes: Pupils are equal, round, and reactive to light. Conjunctivae are normal. Neck: Normal range of motion. Neck supple. No JVD present. Cardiovascular: Normal rate and regular rhythm. No murmur heard. Pulmonary/Chest: Effort normal and breath sounds normal. He has no wheezes. He has no rales . Abdominal: Soft. Bowel sounds are normal. There is no tenderness. There is no rebound. Musculoskeletal: He exhibits no edema. Lymphadenopathy: He has no cervical adenopathy. Neurological: He is alert and oriented to person, place, and time. No cranial nerve deficit . Skin: Skin is warm and dry. Psychiatric: Mood and affect normal. DATA CBC: Lab Results Component Value Date WBC 10.57 10/15/2017 RBC 4.29 10/15/2017 HGB 12.2 (L) 10/15/2017 HCT 35.1 (L) 10/15/2017 MCV 81.8 10/15/2017 MCH 28.4 10/15/2017 MCHC 34.7 10/15/2017 RDW 44.2 10/15/2017 PLT 273 10/15/2017 MPV 8.3 10/15/2017 DIFFTYPE AUTOMATED 10/15/2017 CMP: Lab Results Component Value Date NA 137 10/15/2017 K 4.1 10/15/2017 CL 102 10/15/2017 CO2 24 10/15/2017 ANIONGAP 15 10/15/2017 GLUF 257 (H) 10/15/2017 BUN 17 10/15/2017 CREATININE 1.1 10/15/2017 CREATININE 1.2 07/08/2013 BCR 15 10/15/2017 CA 8.6 10/15/2017 PROT 6.1 (L) 10/14/2017 ALB 2.6 (L) 10/14/2017 GLOB 3.5 10/14/2017 BILITOT 0.5 10/14/2017 ALP 82 10/14/2017 AST 19 10/14/2017 ALT 16 10/14/2017 EGFR >60 10/15/2017 IMAGES Xr Chest Pa And Lateral Result Date: 10/13/2017 1. No radiographic findings of acute pulmonary disease to account for patient's symptomato logy. Correlate clinically. P M Ct Chest Pe Protocol Result Date: 10/13/2017 1. Solitary small filling defect in the right lower lobe pulmonary artery. 2. Otherwise n ormal CTA of the chest no aortic dissection LEM LIST Principal Problem: Pulmonary embolism without acute cor pulmonale (HCC) Active Problems: Precordial pain Uncontrolled type 2 diabetes mellitus (HCC) Leukocytosis Acute kidney injury (HCC) ASSESSMENT & PLAN Acute PE bilateral LE US w/out evidence of DVT Noted 2Decho readings Continue heparin drip overlapped with coumadin Will get more information from his PCP regarding reason for discontinuing anticoagulation Paroxysmal AF [id number] score 4 continue coumadin Telemetry Continue BB for rate control Chest pain Appear more pleuritic or musculoskeletal than cardiac Appears improved with prn pain medication Last cardiac catheterization was in 2013 with minimal atherosclerosis Last stress test in 2014 was normal Due to risk factors, will go ahead and repeat his stress test, scheduled for tomorrow Continue BB, ASA, statin for now Type 2 DM Poorly controlled with HbA1c Noted glucose readings Will change levemir to 30 units BID Glucose monitoring withinsulin sliding scale HTN Noted BP readings, acceptable BB dose decreased last night due to bradycardia in the 30's while asleep Will continue to hold all her other medications continue to monitor BP CKD stage G3 contiue to monitor renal function Avoid nephrotoxic meds Adjust medication doses accdg to creatinine clearance WARD CPAP at bedtime COPD Stable continue symbicort, spiriva Prn albuterol UTI Noted urinalysis Pending urine culture Will start ceftriaxone Disposition: pending Code Status: Full Code Mel Velásquez MD 10/15/2017 9:00 AM onversion Transaction , Provider Unknown - 10/15/2017 4:18 AM PDT Nurse Progress Note by Ladonna Mcgowan RN at 10/15/17417 Author: Ladonna Mcgowan RN Service: (none) Author Type: Registered Nurse Filed: 10/15/17422 Date of Service: 10/15/17417 Status: Signed Thread Separator: Ladonna Mcgowan RN (Registered Nurse) Hospitalist Dr. Ruano notified, pt's urine increasingly more cloudy and odorous during t his shift. Other RN helped pt to urinate this am and noticed he urinated yellow that turned into blood and is now c/o pain with urination. Order for UA/culture. also notified that HR has been as low as 35's when pt is asleep. Pt has been asymptomati c and other VSS. Notified MD that got first dose coreg last evening and has been lower since . MD reducing dose. See orders. [facility] End of shift chart review complete. LADONNA MCGOWAN RN onver ivana Transaction, Provider Unknown - 10/14/2017 11:00 PM PDT Progress Notes by Nav Kurtz CRT at 10/14/172299 Author: Nav Kurtz CRT Service: (none) Author Type: Certified Respiratory Therap ist Filed: 10/15/17 0305 Date of Service: 10/14/172299 Status: Signed Thread Separator: Nav Kurtz CRT (Certified Respiratory Therapist) Pt refusing cpap for the night. No distress noted. Pt on monitors. RN aware. onver ivana Transaction, Provider Unknown - 10/14/2017 6:46 PM PDT Nurse Progress Note by Flash Gao RN at 10/14/171845 Author: Flash Gao RN Service: (none) Author Type: Registered Nurse Filed: 10/14/171846 Date of Service: 10/14/171845 Status: Signed Thread Separator: Flash Gao RN (Registered Nurse) Pt has stated that chest pain and left shoulder pain has decreased to a 2/10 this shift. No acute events. 12 Hr chart check complete. Flash Gao RN Konstantin Negron MD - 10/14/2017 9:15 AM PDTFormatting of this note might be different from the bobbi ginal. Progress Notes by Mel Velásquez MD at 10/14/17914 Author: Mel Velásquez MD Service: Hospitalist Author Type: Physician Filed: 10/14/17 1109 Date of Service: 10/14/17914 Status: Signed Thread Separator: Mel Velásquez MD (Physician) Merged With [facility] Service: Hospitalist Progress Note Hospital Day: LOS: 0 days SUBJECTIVE Patient Summary: Mr. Gr is a 61 yr old man with hx of basal cell Ca, COPD, AF and is not coumadin, hx of GI bleeding, HDL, WARD, hx of CVA, CKD stage G3, type 2 DM, ?bipolar disorder presented to [facility] ED with pressure like chest pain, radiating to the left shoulder, worsens with deep breath ing and with walking, associated with dyspnea, palpitation. At the ED patient had stable BP , was tachycardic, afebrile and was saturating well on room air. Serial cardiac enzymes wer e wnl. EKG showed sinus tachycardia, T wave inversion in inferior leads. Ddimer was low. CTA was done anyway and showed a small solitary filling defect in the right lower lobe. Patient was started on heparin drip and coumadin. Events Overnight: Patient was seen today, reports still having chest pain that is worse when he takes in deep breaths and shoulder pain that worsens with movement. Scheduled Medications aspirin 81 mg Oral Daily with breakfast famotidine 20 mg Oral BID Or famotidine 20 mg Intravenous BID insulin lispro (human) 0-14 Units Subcutaneous TID AC insulin lispro (human) 0-7 Units Subcutaneous Nightly Continuous Infusions dextrose heparin 50 units/mL 12 Units/kg/hr (10/14/17 0039) nitroGLYCERIN in D5W 5 mcg/min (10/14/17 0437) PRN Medications acetaminophen OR acetaminophen, dextrose, dextrose, dextrose, glucagon, glucagon, hepar in (porcine) 5000 unit/0.5mL, heparin (porcine) 5000 unit/0.5mL, morphine, nitroGLYCERIN, on dansetron OR ondansetron, polyethylene glycol, zolpidem OBJECTIVE Vital Signs: BP 119/58 (BP Location: Left upper arm) | Pulse 72 | Temp 98.6 F (37 C) (Oral) | Res p 20 | Ht 1.803 m (5' 11") | Wt 93.8 kg (206 lb 12.7 oz) | SpO2 95% | BMI 28.84 kg/m Patient Vitals for the past 24 hrs: BP Temp Temp src Pulse Resp SpO2 Height Weight 10/14/17 0804 119/58 98.6 F (37 C) Oral 72 20 95 % - - 10/14/17 0500 104/56 - - 55 - - - - 10/14/17 0400 106/54 - - 60 - - - - 10/14/17 0341 102/57 97.9 F (36.6 C) Oral 63 18 95 % - 93.8 kg (206 lb 12.7 oz) 10/14/17 0055 158/74 98 F (36.7 C) Oral 64 18 97 % 1.803 m (5' 11") 93.8 kg (206 lb 12. 7 oz) 10/14/17 0038 148/79 98.1 F (36.7 C) - 64 20 98 % - - 10/13/17 2231 124/75 98.4 F (36.9 C) Oral 76 - 98 % - - 10/13/17 2146 138/73 97.9 F (36.6 C) - 90 20 95 % - - 10/13/17 2139 141/79 97.9 F (36.6 C) Temporal 86 20 96 % - - 10/13/17 2103 134/83 98.1 F (36.7 C) - 86 20 96 % - - 10/13/172049 133/71 98 F (36.7 C) - - 20 96 % - - 10/13/17 1843 150/77 98 F (36.7 C) Oral 103 20 95 % - 92.5 kg (204 lb) Intake/Output Summary (Last 24 hours) at 10/14/17 0915 Last data filed at 10/14/17 0856 Gross per 24 hour Intake 2191 ml Output 1250 ml Net 941 ml Physical Exam Constitutional: He is oriented to person, place, and time. Elderly man, in bed, not in any distress HENT: Head: Normocephalic and atraumatic. Mouth/Throat: Oropharynx is clear and moist. Eyes: Pupils are equal, round, and reactive to light. Conjunctivae are normal. Neck: Normal range of motion. Neck supple. No JVD present. Cardiovascular: Normal rate and regular rhythm. No murmur heard. Pulmonary/Chest: Effort normal and breath sounds normal. He has no wheezes. He has no rales . Abdominal: Soft. Bowel sounds are normal. There is no tenderness. There is no rebound. Musculoskeletal: He exhibits no edema. Lymphadenopathy: He has no cervical adenopathy. Neurological: He is alert and oriented to person, place, and time. No cranial nerve deficit . Skin: Skin is warm and dry. Psychiatric: Mood and affect normal. DATA CBC: Lab Results Component Value Date WBC 11.19 (H) 10/14/2017 RBC 4.24 10/14/2017 HGB 11.9 (L) 10/14/2017 HCT 34.5 (L) 10/14/2017 MCV 81.4 10/14/2017 MCH 28.2 10/14/2017 MCHC 34.6 10/14/2017 RDW 44.2 10/14/2017 PLT 276 10/14/2017 MPV 7.9 10/14/2017 DIFFTYPE AUTOMATED 10/14/2017 CMP: Lab Results Component Value Date NA 137 10/14/2017 K 3.8 10/14/2017 CL 100 10/14/2017 CO2 26 10/14/2017 ANIONGAP 15 10/14/2017 GLUF 234 (H) 10/14/2017 BUN 18 10/14/2017 CREATININE 1.1 10/14/2017 CREATININE 1.2 07/08/2013 BCR 16 10/14/2017 CA 8.5 10/14/2017 PROT 6.1 (L) 10/14/2017 ALB 2.6 (L) 10/14/2017 GLOB 3.5 10/14/2017 BILITOT 0.5 10/14/2017 ALP 82 10/14/2017 AST 19 10/14/2017 ALT 16 10/14/2017 EGFR >60 10/14/2017 IMAGES Xr Chest Pa And Lateral Result Date: 10/13/2017 1. No radiographic findings of acute pulmonary disease to account for patient's symptomato logy. Correlate clinically. P M Ct Chest Pe Protocol Result Date: 10/13/2017 1. Solitary small filling defect in the right lower lobe pulmonary artery. 2. Otherwise n ormal CTA of the chest no aortic dissection LEM LIST Principal Problem: Pulmonary embolism without acute cor pulmonale (HCC) Active Problems: Precordial pain Uncontrolled type 2 diabetes mellitus (HCC) Leukocytosis Acute kidney injury (HCC) ASSESSMENT & PLAN Acute PE Check bilateral LE US Pending 2Decho Continue heparin drip overlapped with coumadin Will get more information from his PCP regarding reason for discontinuing anticoagulation Paroxysmal AF [id number] score 4 Will resume coumadin Telemetry Continue BB for rate control Chest pain Appear more pleuritic or musculoskeletal than cardiac D/c nitroglycerin Prn pain medication Last cardiac catheterization was in 2013 with minimal atherosclerosis Last stress test in 2014 was normal Due to risk factors, will go ahead and repeat his stress test Continue BB, ASA, statin for now Type 2 DM Poorly controlled with HbA1c Resume glargine 45 units nightly Glucose monitoring withinsulin sliding scale HTN Noted BP Resume BB Will hold amlodipine, clonidine, cardizem, lasix, and lisinopril for now continue to monitor BP CKD stage G3 contiue to monitor renal function Avoid nephrotoxic meds Adjust medication doses accdg to creatinine clearance WARD CPAP at bedtime COPD Stable continue symbicort, spiriva Prn albuterol Disposition: pending Code Status: Full Code Mel Velásquez MD 10/14/2017 9:15 AM onversion Transaction , Provider Unknown - 10/14/2017 2:59 AM PDT Nurse Progress Note by Jenn Ohara RN at 10/14/17258 Author: Jenn Ohara RN Service: (none) Author Type: Registered Nurse Filed: 10/14/17301 Date of Service: 10/14/17258 Status: Signed Thread Separator: Jenn Ohara RN (Registered Nurse) Upon admit, patient having 6/10 chest pain with "crushing" pain radiating to his Left shoul carlos. notified. Pt given additional 0.4mg SL nitro x3 with a decrease of chest pain to 4 /10 but unchanged left shoulder pain. notified. Pt given 2mg morphine IV without resolu tion of pain. notified. Pt started on nitro gtt. Will continue to monitor. EVE Vasquez onver ivana Transaction, Provider Unknown - 10/14/2017 2:16 AM PDT Progress Notes by Pepe Xie RPH at 10/14/17215 Author: Pepe Xie RPH Service: Pharmacy Author Type: Pharmacist Filed: 10/14/17215 Date of Service: 10/14/17215 Status: Signed Thread Separator: Pepe Xie RPH (Pharmacist) Note ccl 56ml/min meds reviewed pharmacy will follow [facility] 0216 docume nted in this encounter H&P Notes Patti Kelly DO - 10/13/2017 9:54 PM PDTFormatting of this note might be different from t [place] original. H&P by Patti Kelly DO at 10/13/172153 Author: Patti Kelly DO Service: Hospitalist Author Type: Physician Filed: 10/14/17627 Date of Service: 10/13/172153 Status: Signed Thread Separator: Patti Kelly DO (Physician) Merged With [facility] Service: Hospitalist Admission History & Physical Date of Admission: 10/13/2017 Primary Care Physician: Per Pt None Reason for Admission: Pulmonary embolism, acute kidney injury, precordial pain, uncontrolle d diabetes and leukocytosis History Obtained From: patient, Quality of history: poor CHIEF COMPLAINT: Chief Complaint Patient presents with Chest Pain HISTORY OF PRESENT ILLNESS The patient is a 61 y.o. male with significant past medical history of basal cell carcinoma , COPD, Atrial fibrillation no longer on coumadin,GI bleed, dyslipidemia, WARD, Stroke and Re nal failure who presents with chest pain. Onset was 6 hours ago, with improving course since that time. The patient describes the pain as intermittent, pressure like in nature, radiate s to the left shoulder. Patient rates pain as a 6/10 in intensity. Associated symptoms are pain with deep inspiration, dyspnea, irregular heart beat, near-syncope and palpitations. Ag gravating factors are walking. Alleviating factors are: nitroglycerin 3 tablets. Patient's cardiac risk factors are advanced age (older than 55 for men, 65 for women), diabetes mellit us, dyslipidemia, hypertension, male gender and obesity (BMI >= 30 kg/m2). Patient's risk f actors for DVT/PE: none. Previous cardiac testing: none. ED Medication Administration from 10/13/2017 1833 to 10/13/20172153 Date/Time Order Dose Route Action Action by 10/13/20172146 nitroGLYCERIN (NITROSTAT) SL tablet 0.4 mg 0.4 mg Sublingual Given Eligio Ann RN 10/13/20172139 nitroGLYCERIN (NITROSTAT) SL tablet 0.4 mg 0.4 mg Sublingual Given Eligio Ann RN 10/13/20172125 nitroGLYCERIN (NITROSTAT) SL tablet 0.4 mg 0.4 mg Sublingual Given Eligio Ann RN REVIEW OF SYSTEMS As above, a total of 12 systems reviewed, o/w unremarkable Past Medical History Diagnosis Date Acute pulmonary [...] of GE junction Hypercholesterolemia 07/08/2013 Hyperlipidemia Hypertension 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 Obesity, Class I, BMI 30-34.9 07/08/2013 WARD (obstructive sleep apnea) 08/11/2012 does not use CPAP because of the noise Other chronic pain Renal failure Stroke (HCC) TIA (transient ischemic attack) Unspecified visual disturbance reading glasses Past Surgical History Procedure Laterality Date ABDOMINAL SURGERY CHOLECYSTECTOMY CHOLECYSTECTOMY, LAPAROSCOPIC N/A 09/12/2012 Procedure: LAPAROSCOPIC - CHOLECYSTECTOMY; Surgeon: Jevon Vargas DO; Location: [facility] OR; Service: General; Laterality: N/A; COLONOSCOPY COLONOSCOPY N/A 03/04/2013 Procedure: COLONOSCOPY; Surgeon: Howie Gibson MD; Location: [facility] ENDOSCOPY; Service: Gastroen terology; Laterality: N/A; ESOPHAGOGASTRODUODENOSCOPY N/A 03/03/2013 Procedure: ESOPHAGOGASTRODUODENOSCOPY; Surgeon: Howie Gibson MD; Location: [facility] ENDOS[facility]; Se rvice: Gastroenterology; Laterality: N/A; HERNIA REPAIR N/A 07/03/2013 Procedure: LAPAROSCOPIC - HERNIA - INCISIONAL; Surgeon: Jevon Vargas DO; Location: [facility] OR; Service: General; Laterality: N/A; KNEE SURGERY rt knee, patella LEG SURGERY LLE SKIN BIOPSY SKIN CANCER EXCISION Left 10/10/2012 Procedure: EXCISION - SKIN CANCER; Surgeon: Sy Fierro MD; Location: [facility] OR; Service: Plastics; Laterality: Left; upper arm and upper back w/frozen section SKIN LESION EXCISION Left 05/05/2014 Procedure: EXCISION - LESION - FROZEN SECTION; Surgeon: Sy Fierro MD; Location: [facility] OR; Service: Plastics; Laterality: Left; forearm UNLISTED PROCEDURE ARTHROSCOPY UPPER GASTROINTESTINAL ENDOSCOPY Allergies Allergen Reactions Vitamin B12 Rash Prior to Admission medications Medication Sig Start Date End Date Taking? Authorizing Provider Albuterol Sulfate (VENTOLIN HFA IN) Inhale 2 puffs into the lungs as needed. 108 mcg/act Historical Provider Inbgr-Y-Jhbynbpdljogd (BEANO) TABS Take 150 Units by mouth 3 (three) times daily as needed (As needed for gas). Historical Provider amLODIPine (NORVASC) 10 MG tablet Take 1 tablet by mouth daily. Patient taking differently: Take 5 mg by mouth daily. 12/03/13 Augustine Agosto MD antipyrine-benzocaine (AURALGAN) otic solution Place 4 drops into both ears daily. Histo rical Provider ARIPiprazole (ABILIFY) 10 MG tablet Take 10 mg by mouth daily. Historical Provider calcium carbonate (TUMS) 500 MG chewable tablet Take 500-1,000 mg by mouth daily as needed. For GERD Historical Provider clonazePAM (KLONOPIN) 1 MG tablet Take 1 mg by mouth daily. Historical Provider clonidine (CATAPRES) Place 1 patch [...] 100 MG capsule Take 100 mg by mouth. Take 1 capsule by mouth at bedt silva Historical Provider HYDROcodone-acetaminophen (NORCO) 5-325 MG per tablet Take 1 tablet by mouth every 6 (six) hours as needed for Pain. Historical Provider hydrOXYzine (VISTARIL) 25 MG capsule Take 25 mg by mouth 3 (three) times daily as needed fo r Itching. Historical Provider ibuprofen (MOTRIN) 600 MG tablet Take 600 mg by mouth 3 (three) times daily as needed for P ain. Historical Provider insulin detemir (LEVEMIR) 100 UNIT/ML injection Inject into the skin nightly. Inject 45 un its subcutaneous at bedtime Historical Provider insulin glargine (LANTUS) 100 UNIT/ML injection Inject 82 Units into the skin nightly. Patient taking differently: Inject 60 Units into the skin nightly. 12/03/13 Augustine Agosto MD lamoTRIgine (LAMICTAL) 100 MG tablet Take 100 mg by mouth nightly. Take 200 milligrams by m outh at bedtime Historical Provider urowjhfkn-skxgoxgr-jidimiwxg hydroxide-simethicone Take 40 mLs by mouth daily as needed. Historical Provider lisinopril (ZESTRIL) 40 MG tablet Take 2 tablets by mouth every evening. Patient taking differently: Take 80 mg by mouth every evening. Take 1 tablet by mouth every day 06/17/16 07/17/16 Samson Blanchard MD lithium (LITHOBID) 300 MG CR tablet Take 300 mg by mouth 2 (two) times daily. Historical Provider Mometasone Furo-Formoterol Fum (DULERA) 100-5 MCG/ACT AERO Inhale 2 puffs into the lungs 2 (two) times daily. Historical Provider nebivolol (BYSTOLIC) 10 MG tablet Take 10 mg by mouth daily. Take 1 tablet by mouth at [facility]. Hold for Dizziness and Heart Rate <65 [...] Take 40 mg by mouth every morning. Take 1/2 tablet by mouth daily Historical Provider polyethylene glycol (GLYCOLAX) powder DISSOLVE 17GM IN LIQUID AND DRINK BY MOUTH EVERY DAY 04/23/13 Bang Yeh MD pravastatin (PRAVACHOL) 80 MG tablet Take 80 mg by mouth nightly. Historical Provider spironolactone-hydrochlorothiazide (ALDACTAZIDE) 25-25 MG per tablet Take 1 tablet by mouth daily. Historical Provider tamsulosin (FLOMAX) 0.4 MG capsule [...] [facility] 12/19/14 CITLALY Leonard Social History Social History Marital status: Spouse name: N/A Number of children: 1 Years of education: s. college Occupational History disabled Social History Main Topics Smoking status: Never Smoker Smokeless tobacco: Never Used Alcohol use 0.0 oz/week 1 - 2 Cans of beer per week Comment: occassional Drug use: No Sexual activity: Not Currently Other Topics Concern None Social History Narrative Lives alone x 1 wk, moved from [facility], , 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 2 falls in the last 6 months. Family History Problem Relation Age of Onset Heart disease Father Heart disease Sister Diabetes type II Sister Heart Problems Brother PHYSICAL EXAM BP 124/75 (BP Location: Left upper arm) | Pulse 76 | Temp 98.4 F (36.9 C) (Oral) | R arlette 20 | Wt 103.8 kg (228 lb 13.4 oz) | SpO2 98% | BMI 31.92 kg/m General Appearance: A & O x 3, no distress, appears stated age. Slurred impediment Head: Normocephalic, without obvious abnormality, atraumatic Eyes: PERRL, conjunctiva/corneas clear, EOM's intact. Ears: Normal external ear canals, no otorrhea Nose: Nares normal, no drainage or sinus tenderness Throat: Lips, mucosa, and tongue normal; gums normal Neck: Supple, symmetrical, trachea; no carotid bruit or JVD Back: Symmetric, no curvature, ROM normal, no CVA tenderness Lungs: Clear to auscultation bilaterally, respirations unlabored Chest Wall: No tenderness or deformity Heart: irregular rate and rhythm, S1 and S2 normal, no murmur, rub or gallop Abdomen: Soft, non-tender, bowel sounds active all four quadrants, no masses, no organo megaly Genitalia: Deferred Rectal: Deferred Extremities: Upper extremities no clubbing/ cyanosis/ erythema Lower extremities atraum atic, no cyanosis or edema Pulses: 2+ and symmetric all extremities Skin: Skin warm, texture and turgor normal, no rashes or lesions Lymph nodes: No gross lymphadenopathy. Neurologic: Psychiatric: CNII-XII intact, normal strength, sensation normal Affect/ mood normal, behavior and judgement normal DATA Results for orders placed or performed during the hospital encounter of 10/13/17 (from the past 24 hour(s)) Troponin I, Lab Collection Time: 10/13/17 6:36 PM Result Value Ref Range TROPONIN I <0.02 0.00 - 0.10 ng/mL Cardiac Panel Collection Time: 10/13/17 6:36 PM Result Value Ref Range WBC 15.01 (H) 3.80 - 11.00 K/uL RBC 5.49 4.20 - 5.70 M/uL HGB 15.2 13.2 - 17.0 g/dL HCT 45.3 39.0 - 50.0 % MCV 82.6 80.0 - 100.0 fl MCH 27.7 27.0 - 34.0 pg MCHC 33.6 32.0 - 35.5 g/dL RDW SD 44.6 37 - 53 fl PLT 418 (H) 150 - 400 K/uL MPV 7.8 fl DIFF TYPE AUTOMATED NEUTROPHILS 83.06 % LYMPHOCYTES 10.83 % MONOCYTES 5.82 % EOSINOPHILS 0.03 % BASOPHILS 0.26 % NEUTROPHILS ABS 12.47 (H) 1.90 - 7.40 K/uL LYMPHOCYTES ABS 1.63 1.00 - 3.90 K/uL MONOCYTES ABS 0.87 (H) 0.00 - 0.80 K/uL EOSINOPHILS ABS 0.00 0.00 - 0.50 K/uL BASOPHILS ABS 0.04 0.00 - 0.10 K/uL SODIUM 131 (L) 135 - 145 mmol/L POTASSIUM 4.0 3.5 - 4.9 mmol/L CHLORIDE 92 (L) 99 - 109 mmol/L CO2 23 23 - 32 mmol/L ANION GAP AGAP 20 5 - 20 mmol/L GLUCOSE 396 (H) 65 - 99 mg/dL BUN 23 8 - 25 mg/dL CREATININE 1.6 (H) 0.70 - 1.30 mg/dL BUN/CREAT 15 CALCIUM 9.7 8.5 - 10.5 mg/dL TOTAL PROTEIN 8.8 (H) 6.3 - 8.2 g/dL Albumin 3.6 3.3 - 4.8 g/dL GLOBULIN 5.2 (H) 1.3 - 4.9 g/dL A/G 0.7 (L) 1.0 - 2.4 TBIL 0.7 0.1 - 1.5 mg/dL ALK PHOS 108 35 - 115 U/L AST 17 10 - 45 U/L ALT 23 10 - 65 U/L EGFR 44 (L) >60 mL/min/1.73m2 CPK 65 55 - 400 U/L INR 1.0 APTT 25 23 - 32 seconds MMB 4.1 (H) 0.5 - 3.6 ng/mL CK-MB Index 6.3 BNP Collection Time: 10/13/17 6:36 PM Result Value Ref Range BRAIN NATRIURETIC PEPTIDE 11.2 0 - 100 pg/mL MonOct 13, 2017 1840 EKG Interpretation: Sinus tachycardia Rate: 104 Intervals unremarkable No acute ischemia T wave inversion in inferior leads, new since 06/25/[address] Bridges. Xr Chest Pa And Lateral Result Date: 10/13/2017 NORAH GR XR CHEST 2 VIEW FRONTAL AND LATERAL 10/13/2017 7:42 PM HISTORY: 61 years. Male . Chest pain TECHNIQUE: XR CHEST 2 VIEW FRONTAL AND LATERAL. Standard technique. Total of 4 images obtained. COMPARISON: None. FINDINGS: The lungs and pleural spaces are clear. The cardiac silhouette and pulmonary vasculature are normal. No hilar or mediastinal adenopathy . Osseous structures are unremarkable. 1. No radiographic findings of acute pulmonary disease to account for patient's symptomato logy. Correlate clinically. P M Ct Chest Pe Protocol Result Date: 10/13/2017 NORAH GR CTA CHEST PULMONARY EMBOLISM W CONTRAST 10/13/2017 11:19 PM HISTORY: 61 years. Male. Pleuritic chest pain and shortness of breath rule out pulmonary emboli TECHNIQUE: 1. 5-mm axial images of the chest were acquired in the arterial phase according to a CT angiogr aphy protocol. Coronal CT angiographic MIP reconstructions were performed. IV contrast: 70 mL IsoVue 370 Dose reduction techniques were used including automated exposure control (AEC) , iterative reconstruction technique, and/or mA and/or kV dose adjustments based on patient size COMPARISON: 12/27/2014 FINDINGS: CT ANGIOGRAM: The pulmonary arterial tree is well opac ified. Pulmonary arteries are normal in caliber. There is a single intraluminal filling defe ct in the right lower lobe artery (126/2) the remainder of the pulmonary arteries have no fi lling defects. 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 No dis section, aneurysm or stenosis is seen in the aorta or great vessels. No aneurysmal dilatatio n. No evidence of dissection. The heart is normal in size. No pericardial abnormality is no tasia. No filling defects are seen in the chambers of the heart to suggest clot or tumor. CT CHEST: The lungs are well aerated. No acute airspace disease, parenchymal nodule, mass, ple ural effusion or pneumothorax is noted. No bronchiectasis is seen. The thyroid is symmetric and shows no evidence of a solid or cystic mass. No bulky adenopathy is seen in the lower n odal stations of the neck, axillary regions, mediastinum or hilar regions. The thoracic esop hagus is normal. No hiatal hernia is seen. The muscles of the chest are symmetric. No foca l atrophy or soft tissue mass is seen. The osseous structures of the chest do not demonstrat e lytic or blastic lesions. Scan was continued into the upper portion of the abdomen there i s no free air or free fluid 1. Solitary small filling defect in the right lower lobe pulmonary artery. 2. Otherwise n ormal CTA of the chest no aortic dissection . ASSESSMENT & PLAN Principal Problem: Pulmonary embolism without acute cor pulmonale (HCC): -Discussed CT PE scan with Dr. Jackson small PE also noted in 2015 are bigger now, howeve r, not longer taking Coumadin -Heparin drip -Coumadin initiation -Oxygen supplementation as needed Active Problems: Acute kidney injury (HCC): -Unclear etiology -Medications unclear as patient does not know what he takes -Previous medications included Motrin, Lisinopril and Lasix -IV fluids -Patient received IV contrast will hydrate Precordial pain: -Pleuritic component, however, multiple risk factors for angina which include dyslipidemia, hypertension, uncontrolled diabetes and possible noncompliance -Serial troponin x 3 -Aspirin Atrial fibrillation: -Was on coumadin -IFO2FY5-Bbmn=3%, anticoagulation is strongly recommended -Telemetry -Heparin drip and coumadin initiation -Echo Uncontrolled type 2 diabetes mellitus (HCC): -High dose insulin sliding scale -ADA diet Leukocytosis: -Reactive? -No obvious signs or symptoms of infection -We will monitor for now GI prophylaxis and heparin drip PATTI KELLY DO 10/14/2017 12:29 AM documented in this enco unter Procedure Notes Leann Vang ARNP - 10/16/2017 9:15 AM PDTFormatting of this note might be different fr om the original. Procedures by CITLALY Alamo at 10/16/17914 Author: CITLALY Alamo Service: Radiology Author Type: Advanced Registered Nurse Bj calvillo Filed: 10/16/17915 Date of Service: 10/16/17914 Status: Signed Thread Separator: CITLALY Alamo (Advanced Registered Nurse Ricky) Pre-procedure Diagnoses: 1. Chest pain, unspecified type [R07.9] Post-procedure Diagnoses: 1. Chest pain, unspecified type [R07.9] Procedures: 1. NM MYOCARDIAL PERFUSION SPECT - STRESS AND REST [XVS437 (Custom)] Merged With [facility] Service: Diagnostic Imaging/Nuclear Medicine Cardiac Stress Test Note Type of Stress Test performed (protocol): Pharmacologic stress test Virgil protocol time (if applicable): N/A Rhythm changes: None Ectopy: None Symptoms experienced during exam: None ST/T wave changes: T wave inversion inferolateral leads Medications administered: Lexiscan 0.4 mg Atkinson Treadmill Score: N/A Comments: None documented in this encounter ED Notes Tarah Matos ARNP - 10/13/2017 6:52 PM PDT ED Provider Notes by CITLALY Boyd at 10/13/171851 Author: CITLALY Boyd Service: Emergency Department Author Type: Nurse Practit lynda Filed: 10/13/172332 Date of Service: 10/13/171851 Status: Attested Thread Separator: CITLALY Boyd (Nurse Practitioner) Cosigner: Reynaldo Prather DO at 10/14/1735 Attestation signed by Reynaldo Prather DO at 10/14/1735 I have reviewed the patient's chart. I was available for consultation during the care of the patient. Reynaldo Prather DO Procedures [facility] EMERGENCY DEPARTMENT History of Present Illness Patient Identification Norah Gr is a 61 y.o. male. Patient information was obtained from patient. History/Exam limitations: Developmentally delayed Patient presented to the Emergency Department by: [facility] 1729 PCP: Per Pt None Chief Complaint Chief Complaint Patient presents with Chest Pain HPI: The patient complains of chest pain. Onset of symptoms was just prior to arrival, with a co nstant course since that time. He reports the pain was sharp and was mainly in his left shou lder. He has some sternal chest pain as well. He states, "They tell me my a-fib acts up when I stressed and I feel stressed out today." He reports he felt short of breath and had some abdominal pain. Both has resolved. He reports he lives alone but used to live in an assisted living. He reports he does not have a health care marketing specialist. Denies sweating, back pain, nausea and vomiting. Care prior to arrival consisted of nothing. Past Medical History Diagnosis Date Anxiety ARF (acute renal failure) (HCC) 03/02/2013 Atrial fibrillation (HCC) Basal cell carcinoma 09/26/2012 arm and back COPD (chronic obstructive pulmonary disease) (HCC) 03/02/2013 hypoxemia on 2 lts nc Depression Development delay Diabetes mellitus type II Facial droop 07/08/2013 GIB (gastrointestinal bleeding) 03/02/[address] Nur, rectal ulcers, nodule of GE junction Hypercholesterolemia 07/08/2013 Hyperlipidemia Hypertension FCI (current) use of 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 Obesity, Class I, BMI 30-34.9 07/08/2013 WARD (obstructive sleep apnea) 08/11/2012 does not use CPAP because of the noise Other chronic pain Renal failure Stroke (HCC) TIA (transient ischemic attack) Unspecified visual disturbance reading glasses Past Surgical History Procedure Laterality Date ABDOMINAL SURGERY CHOLECYSTECTOMY CHOLECYSTECTOMY, LAPAROSCOPIC N/A 09/12/2012 Procedure: LAPAROSCOPIC - CHOLECYSTECTOMY; Surgeon: Jevon Vargas DO; Location: [facility] MAIN OR; Service: General; Laterality: N/A; COLONOSCOPY COLONOSCOPY N/A 03/04/2013 Procedure: COLONOSCOPY; Surgeon: Howie Gibson MD; Location: [facility] ENDOSCOPY; Service: Gastroen terology; Laterality: N/A; ESOPHAGOGASTRODUODENOSCOPY N/A 03/03/2013 Procedure: ESOPHAGOGASTRODUODENOSCOPY; Surgeon: Howie Gibson MD; Location: [facility] ENDOSCOPY; rvice: Gastroenterology; Laterality: N/A; HERNIA REPAIR N/A 07/03/2013 Procedure: LAPAROSCOPIC - HERNIA - INCISIONAL; Surgeon: Jevon Vargas DO; Location: [facility] MAIN OR; Service: General; Laterality: N/A; KNEE SURGERY rt knee, patella LEG SURGERY LLE SKIN BIOPSY SKIN CANCER EXCISION Left 10/10/2012 Procedure: EXCISION - SKIN CANCER; Surgeon: Sy Fierro MD; Location: [facility] MAIN OR; Service: Plastics; Laterality: Left; upper arm and upper back w/frozen section SKIN LESION EXCISION Left 05/05/2014 Procedure: EXCISION - LESION - FROZEN SECTION; Surgeon: Sy Fierro MD; Location: [facility] MA[facility] OR; Service: Plastics; Laterality: Left; forearm UNLISTED PROCEDURE ARTHROSCOPY UPPER GASTROINTESTINAL ENDOSCOPY Allergies Allergen Reactions Vitamin B12 Rash Social [...] Lives alone x 1 wk, moved from [facility], , 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 2 falls in the last 6 months. Family History Problem Relation Age of Onset Heart disease Father Heart disease Sister Diabetes type II Sister Heart Problems Brother ROS Review of Systems Positive for: chest pain, left shoulder pain Constitutional: Negative for: fatigue, night sweats or weight loss Eyes: Negative for: decreased vision or irritated eyes Nose: Negative for: nosebleed Throat: Negative for: mouth sores Cardiovascular/Respiratory: Negative for: shortness of breath, wheezing Gastrointestinal: Negative for: abdominal pain, vomiting, diarrhea, bloody stools Genitourinary: Negative for: dysuria, hematuria Musculoskeletal: Negative for: myalgias Skin: Negative for: laceration or lesion Neuro and psych: Negative for: fainting, head injury, seizure, trouble walking Endocrine/Heme/Lymph: Negative for: swollen lymph nodes, easy bruising Physical Exam BP 150/77 | Pulse 103 | Temp 98 F (36.7 C) (Oral) | Resp 20 | Wt 103.8 kg (228 lb 1 3.4 oz) | SpO2 95% | BMI 31.92 kg/m Vital signs reviewed, tachycardic, otherwise unremarkable. General: Alert, in no apparent distress Eyes: Normal inspection, pupils equal and round, non-icteric ENT: External ears normal Nose normal Neck: Normal inspection Supple No meningismus Cardiovascular: Normal rate, rhythm normal No audible murmur Respiratory: Breath sounds normal bilaterally. No cough during exam. Abdomen: Soft, non-tender, non-distended, normal bowel sounds No guarding or rebound Skin: Color normal Warm and dry No rash Neuro: No motor deficit No sensory deficit ED Course Medical Decision Making and Emergency Department Course ED Department Course This patient presents with the chief complaint of Chest Pain Records Reviewed Nursing notes Relevant past medical records DDx includes, but is not limited to OR, CAD, arrhythmia, costochondritis, GERD, gastritis, gastric ulcer, pancreatitis, dehydration, electrolyte abnormality vs other. I discussed the differential diagnoses and treatment plan with patient. The patient express es understanding and is agreeable. He is pain free at this time. I will not give nitro. ED Course as of Oct 13 2332MonOct 13, 2017 1840 EKG Interpretation: Sinus tachycardia Rate: 104 Intervals unremarkable No acute ischemia T wave inversion in inferior leads, new since 06/25/[address] Bridges. 1936 Cardiac panel reviewed. WBC 15.01 Neutrophils 12.47 Creatinine 1.6 GFR 44 Renal function is essentially unchanged from baseline. 1945 TROPONIN I: <0.02 2100 I called radiology. CXR has not been read yet. 2123 Patient is now complaining of chest pain per EVE Sneed. Nitro ordered 2131 I discussed all results with patient. We discussed admission. He is agreeable. [address] PE protocol, BNP and heparin 12 unit dose added. 2199 Impression 1. No radiographic findings of acute pulmonary disease to account for patient's symptomat ology. Correlate clinically. chest PA and lateral 2246 CT called to report patient needs fluids prior to CT.I have ordered 1L NS 2330 BRAIN NATRIURETIC PEPTIDE: 11.2 Patient Vitals for the past 24 hrs: BP Temp Temp src Pulse Resp SpO2 Weight 10/13/17 2231 124/75 98.4 F (36.9 C) Oral 76 - 98 % - 10/13/172145 138/73 97.9 F (36.6 C) - 90 20 95 % - 10/13/172138 141/79 97.9 F (36.6 C) Temporal 86 20 96 % - 10/13/172102 134/83 98.1 F (36.7 C) - 86 20 96 % - 10/13/172049 133/71 98 F (36.7 C) - - 20 96 % - 10/13/17 184 150/77 98 F (36.7 C) Oral 103 20 95 % 103.8 kg (228 lb 13.4 oz) Medications heparin 50 units/mL infusion (not administered) heparin (porcine) 5000 unit/0.5mL injection 8,300 Units (not administered) heparin (porcine) 5000 unit/0.5mL injection 5,000 Units (not administered) heparin (porcine) 5000 unit/0.5mL injection 2,500 Units (not administered) sodium chloride (bolus) 0.9 % 1,000 mL (not administered) nitroGLYCERIN (NITROSTAT) SL tablet 0.4 mg (0.4 mg Sublingual Given 10/13/171) iopamidol (ISOVUE-370) 76 % injection 100 mL (100 mLs Intravenous Given 10/13/17 2314) Labs & Radiology Results Laboratory Evaluation Results Procedure Component Value Ref Range Date/Time BNP [[id number]] Collected: 10/13/171835 Order Status: Completed Specimen: Blood Updated: 10/13/172252 BRAIN NATRIURETIC PEPTIDE 11.2 0 - 100 pg/mL Troponin I, Lab [[id number]] Collected: 10/13/171835 Order Status: Completed Specimen: Blood Updated: 10/13/171927 TROPONIN I <0.02 0.00 - 0.10 ng/mL Cardiac Panel [[id number]] (Abnormal) Collected: 10/13/171835 Order Status: Completed Updated: 10/13/171927 WBC 15.01 (H) 3.80 - 11.00 K/uL RBC 5.49 4.20 - 5.70 M/uL HGB 15.2 13.2 - 17.0 g/dL HCT 45.3 39.0 - 50.0 % MCV 82.6 80.0 - 100.0 fl MCH 27.7 27.0 - 34.0 pg MCHC 33.6 32.0 - 35.5 g/dL RDW SD 44.6 37 - 53 fl PLT 418 (H) 150 - 400 K/uL MPV 7.8 fl DIFF TYPE AUTOMATED NEUTROPHILS 83.06 % LYMPHOCYTES 10.83 % MONOCYTES 5.82 % EOSINOPHILS 0.03 % BASOPHILS 0.26 % NEUTROPHILS ABS 12.47 (H) 1.90 - 7.40 K/uL LYMPHOCYTES ABS 1.63 1.00 - 3.90 K/uL MONOCYTES ABS 0.87 (H) 0.00 - 0.80 K/uL EOSINOPHILS ABS 0.00 0.00 - 0.50 K/uL BASOPHILS ABS 0.04 0.00 - 0.10 K/uL SODIUM 131 (L) 135 - 145 mmol/L POTASSIUM 4.0 3.5 - 4.9 mmol/L CHLORIDE 92 (L) 99 - 109 mmol/L CO2 23 23 - 32 mmol/L ANION GAP AGAP 20 5 - 20 mmol/L GLUCOSE 396 (H) 65 - 99 mg/dL BUN 23 8 - 25 mg/dL CREATININE 1.6 (H) 0.70 - 1.30 mg/dL BUN/CREAT 15 CALCIUM 9.7 8.5 - 10.5 mg/dL TOTAL PROTEIN 8.8 (H) 6.3 - 8.2 g/dL Albumin 3.6 3.3 - 4.8 g/dL GLOBULIN 5.2 (H) 1.3 - 4.9 g/dL A/G 0.7 (L) 1.0 - 2.4 TBIL 0.7 0.1 - 1.5 mg/dL ALK PHOS 108 35 - 115 U/L AST 17 10 - 45 U/L ALT 23 10 - 65 U/L EGFR 44 (L) >60 mL/min/1.73m2 CPK 65 55 - 400 U/L INR 1.0 APTT 25 23 - 32 seconds MMB 4.1 (H) 0.5 - 3.6 ng/mL CK-MB Index 6.3 Radiology and EKG Evaluation Imaging Results CT Chest PE Protocol (In process) XR chest PA and lateral (Final result) Result time 10/13/17 21:52:15 Final result by Addison Jackson MD (10/13/17 21:52:15) Impression: 1. No radiographic findings of acute pulmonary disease to account for patient's symptomat ology. Correlate clinically. Narrative: NORAH GR XR CHEST 2 VIEW FRONTAL AND LATERAL 10/13/2017 7:42 PM HISTORY: 61 years. Male. Chest pain TECHNIQUE: XR CHEST 2 VIEW FRONTAL AND LATERAL. Standard technique. Total of 4 images obtained. COMPARISON: None. FINDINGS: The lungs and pleural spaces are clear. The cardiac silhouette and pulmonary vasculature a re normal. No hilar or mediastinal adenopathy. Osseous structures are unremarkable. Diagnosis & Disposition ED Diagnoses Final diagnoses Chest pain, unspecified type Shortness of breath Acute electrocardiogram changes Neutrophilic leukocytosis Disposition: ED Disposition ED Disposition Condition Comment Admit/Observation Bed request special needs: telemetry Diagnosis?: chest pain, EKG changes, shortness of breath An attending physician has been available for consult during this visit. We have discussed all pertinent information. CITLALY Boyd 10/13/17 2333 Reynaldo Prather DO 10/14/17 0036 documented in th is encounter Miscellaneous Notes Miscellaneous - Conversion Transaction, Provider Unknown - 10/18/2017 11:13 AM PDTFormattin g of this note might be different from the original. Treatment Plan by Ale Drake PT at 10/18/17 1113 Author: Ale Drake PT Service: (none) Author Type: Physical Therapist Filed: 10/18/17 1204 Date of Service: 10/18/17 1113 Status: Signed Thread Separator: Ale Drake PT (Physical Therapist) PHYSICAL THERAPY EVALUATION PT Received On: 10/18/17 Reason for Treatment: Other (comment) (PE, KESHAWN) Requires PT Follow Up: Awaiting tx order Follow up PT Only?: No Focus for Next Treatment: (balance) PT Eval/Reassessment Date: 10/18/17 Assistance Required: 1 person Rn New Grad Needed: No Recommendations: Prior Setting Equipment Recommended: None PT Ready for Discharge: Yes Recommendation Comments: Pt. able to transfer to standing with supervision. Ambulating wit h stand-by assist. Pt. declined the use of any AD at this time and does not want anything. H e did not demonstrate any LOB during ambulation during evaluation. Discussed having home he alth services but pt. declined stating that he was too busy to have them come to him. Plan Treatment/Interventions: Assist d/c plannning, Balance training, Gait training, Stair train ing, Therapeutic exercise PT Frequency: 2-3x/wk, Once per day Care Duration (# of days): 7 # of days Summary Comments: 61 yr old male admitted with PE, KESHAWN. PMHX: dm, basal cell carcinoma, copd, a-fi b, cva (several years ago), renal failure. Pt. stating that he hasn't been up walking in t he last few days and feels weak. Pt. able to transfer oob to standing with supervision. Amb ulating without AD around unit without LOB during turns, head rotation, walking backwards. [place] which is borderline risk for falls. Pt. refuses to use any AD at this t silva. Discussed safety with night time walking , use of lights, sitting while dressing due t o unsteadiness with eyes closed. Discussed having PT work on improving his balance but pt. declined any home health PT. Cognition Overall Cognitive Status: Within Functional Limits Orientation Level: Oriented Assessment of Patient Status Assessment of Patient Status: Decreased functional mobility, Decreased endurance Prognosis: Should progress with skilled therapy intervention Home Environment Type of Home: Apartment ground level Home Exterior Layout: Entry steps none Home Interior Layout: Lives on main level with bedroom/bathroom Bathroom Shower/Tub: Tub/shower unit Bathroom Toilet: Raised Bathroom Accessibility: Not accessible Home Equipment: None Additional Comments: Pt. does not use an AD prior to this admission Prior Function Level of [place]: Modified independent with functional mobility, Modified independent with ADLs, Assist with IADLs Falls in Past Year: Yes (once down stairs, fx left clavicle) Lives With: Alone Comments: quarter backer once a week. RUE Assessment: (decreased rom left upper ranges) LUE Assessment: Within Functional Limits RLE Assessment: Within Functional Limits LLE Assessment: Within Functional Limits FUNCTIONAL MOBILITY Bed Mobility Supine to Sit: Modified independent Sit to Supine: Modified independent Transfers Sit to/from Stand: Supervision Ambulation Weight Bearing Status: WBAT RLE, WBAT LLE Maximal Ambulation Distance (feet): 360 Total Ambulation Distance (feet): 360 Ambulation Assistance: Standby assist Distance limited by?: Patient's ability (leg fatigue) Pattern: Alternating, Decreased aaron Assistive Device: None BALANCE Balance: Yes Standardized Test [place] Performance Oriented Mobility Assessment : Activity Tolerance: Patient limited by fatigue Nurse Made Aware: yes Safety Devices in Place: (call wilson in reach) The patient demonstrated no indication of pain during therapy session. Education Completed: Education Topics: [] Rationale for PT [] PT POC [x] DC planning [] Precautions [] Exercises [] Bed mobility [x] Transfer training with hand placement [x] Gait training [] Stair training [] Use of gait belt [] Other Completed with: [x] Patient [] Spouse [] Significant other [] Family [] C aregiver [] Other Completed by: [x] Verbal education [] Demonstration [] Handout [] Other: Response to Education: [] Stated Understanding [] Reinforcement necessary [] Returned demonstration [x] Demonstrated understanding [] No evidence of learning [] Refused Physical Therapy Goals PT Goals Goal Formulation: With patient Pt Will Transfer Sit to Stand: With modified independence Pt Will Ambulate: greater than 500 feet Ambulate Level Assist: With modified independence Ambulate with Assistive Device: Least restricitve device Low - 17646 Moderate - 38336 High - 55813 History [] no personal factors &/or comorbidities [] 1-2 personal factors &/or comorbiditi es [] 3 or more personal factors &/or comorbidities Examination [x] 1-2 elements [] 3 elements [] 4 or more elements Clinical Presentation [x] stable [] evolving [] unstable Clinical Decision Making Complexity: [x] Low 82187 [] Moderate 25259 [] High 9 7163 [place] Performance Oriented Mobility Assessment ([place]) [place] Assessment Tool: Balance Tasks Sitting balance: Steady, safe Arises: Able, uses arms to help Attempts to arise: Able to rise, 1 attempt Immediate standing balance: Steady without walker or other support Standing balance: Narrow stance w/o support Nudged: Staggers, grabs, catches self Eyes closed: Unsteady Turning 360 degrees - steps: Continuous steps Turning 360 degrees - steadiness: Steady Sitting down: Uses arms or not a smooth motion Balance score:: 12 [place] Assessment Tool: Gait Tasks Initiation of gait: No hesitancy Step length & height - right swing foot: Right foot passes left stance foot Step length & height - right foot: Right foot completely clears floor Step length & height - left swing foot: Left foot passes right stance foot Step length & height - left foot: Left foot completely clears floor Step symmetry: Right and left step appear equal Step continuity: Steps appear continuous Path: Straight without walking aid Trunk: No sway, no flexion, no use of arms, & no use of walking aids Walking stance: Heels almost touching while walking Gait score:: 12 Tinetti Assessment Tool: Total Score Total score (balance + gait):: 24 Interpretation: 25-28 = Patient is not considered at risk for falls 19-24 = Patient is at risk for falls 0 - 19 = Patient is at high risk for falls lan o f Care - Conversion Transaction, Provider Unknown - 10/18/2017 9:52 AM PDTFormatting of anh dougherty note might be different from the original. Plan of Care by Diane Richard RN at 10/18/17951 Author: Diane Richard RN Service: (none) Author Type: Registered Nurse Filed: 10/18/17951 Date of Service: 10/18/17951 Status: Signed Thread Separator: Diane Richard RN (Registered Nurse) Fall Prevention Goal: No Falls during Hospital Stay Outcome: Progressing Maintain bed in low, locked position at all times. [place] patient and family to hospital surroundings. Provide non-skid slippers. Call light within reach. Rounding per standard lan o f Care - Conversion Transaction, Provider Unknown - 10/17/2017 7:59 PM PDTFormatting of anh s note might be different from the original. Plan of Care by Bucky Castrejon RN at 10/17/171958 Author: Bucky Castrejon RN Service: (none) Author Type: Registered Nurse Filed: 10/17/171958 Date of Service: 10/17/171958 Status: Signed Thread Separator: Bucky Castrejon RN (Registered Nurse) Problem: Pain Goal: Patient's pain/discomfort is manageable Outcome: Progressing PRN medication available, pt states pain is managed by medication Problem: Safety Goal: Patient will be injury free during hospitalization Outcome: Progressing Pt has remained free of injuries and falls so far this admission Problem: Daily Care Goal: Daily care needs are met Assess and monitor ability to perform self care and identify potential discharge needs. Outcome: Progressing Hourly rounding provided, assistance provided prn lan o f Care - Conversion Transaction, Provider Unknown - 10/17/2017 9:57 AM PDTFormatting of anh dougherty note might be different from the original. Plan of Care by Diane Richard RN at 10/17/17956 Author: Diane Richard RN Service: (none) Author Type: Registered Nurse Filed: 10/17/17957 Date of Service: 10/17/17956 Status: Signed Thread Separator: Diane Richard RN (Registered Nurse) Fall Prevention Goal: No Falls during Hospital Stay Outcome: Progressing Maintain bed in low, locked position at all times. [place] patient and family to hospital surroundings. Provide non-skid slippers. Call light within reach. Rounding per standard lan o f Care - Conversion Transaction, Provider Unknown - 10/16/2017 8:07 PM PDTFormatting of thi s note might be different from the original. Plan of Care by Bucky Castrejon RN at 10/16/172006 Author: Bucky Castrejon RN Service: (none) Author Type: Registered Nurse Filed: 10/16/172006 Date of Service: 10/16/172006 Status: Signed Thread Separator: Bucky Castrejon RN (Registered Nurse) Problem: Pain Goal: Patient's pain/discomfort is manageable Outcome: Progressing PRN medication available, pt states pain is managed by medication Problem: Safety Goal: Patient will be injury free during hospitalization Outcome: Progressing Pt has remained free of injuries and falls so far this admission Problem: Daily Care Goal: Daily care needs are met Assess and monitor ability to perform self care and identify potential discharge needs. Outcome: Progressing Hourly rounding provided, assistance provided prn lan o f Care - Conversion Transaction, Provider Unknown - 10/16/2017 10:34 AM PDTFormatting of thi s note might be different from the original. Plan of Care by Flash Gao RN at 10/16/17 103 Author: Flash Gao RN Service: (none) Author Type: Registered Nurse Filed: 10/16/171033 Date of Service: 10/16/171033 Status: Signed Thread Separator: Flash Gao RN (Registered Nurse) Problem: Safety Goal: Patient [...] and non-skid footwear provided. Outcome: Progressing Pt calls appropriately for needs. Bed in lowest position, bed wheels locked, side rails up x2, call light in reach. lan o f Care - Conversion Transaction, Provider Unknown - 10/16/2017 2:49 AM PDTFormatting of thi s note might be different from the original. Plan of Care by Ladonna Mcgowan RN at 10/16/17248 Author: Ladonna Mcgowan RN Service: (none) Author Type: Registered Nurse Filed: 10/16/17248 Date of Service: 10/16/17248 Status: Signed Thread Separator: Ladonna Mcgowan RN (Registered Nurse) Problem: Safety Goal: Patient [...] footwear provided. Outcome: Progressing Arm band on, room free of clutter, call light within reach, bed is low and locked, WCM lan o f Care - Conversion Transaction, Provider Unknown - 10/15/2017 2:12 PM PDTFormatting of thi s note might be different from the original. Plan of Care by Flash Gao RN at 10/15/171411 Author: Flash Gao RN Service: (none) Author Type: Registered Nurse Filed: 10/15/171411 Date of Service: 10/15/171411 Status: Signed Thread Separator: Flash Gao RN (Registered Nurse) Problem: Safety Goal: Patient [...] and non-skid footwear provided. Outcome: Progressing Pt calls appropriately for needs. Bed in lowest position, bed wheels locked, side rails up x2, call light in reach. lan o f Care - Conversion Transaction, Provider Unknown - 10/15/2017 3:28 AM PDTFormatting of thi s note might be different from the original. Plan of Care by Ladonna Mcgowan RN at 10/15/17327 Author: Ladonna Mcgowan RN Service: (none) Author Type: Registered Nurse Filed: 10/15/17327 Date of Service: 10/15/17327 Status: Signed Thread Separator: Ladonna Mcgwoan RN (Registered Nurse) Problem: Pain Goal: Patient's pain/discomfort is manageable Assess and monitor patient's pain using appropriate pain scale. Collaborate with interdisci plinary team and initiate plan and interventions as ordered. Re-assess patient's pain level approximately 1-2 hours after pain management intervention. Premedicate as needed. Outcome: Progressing Pain is tolerable. Pt reports 2/10, but resting comfortably. WCM lan o f Care - Conversion Transaction, Provider Unknown - 10/14/2017 11:03 AM PDTFormatting of thi s note might be different from the original. Plan of Care by Flash Gao RN at 10/14/171102 Author: Flash Gao RN Service: (none) Author Type: Registered Nurse Filed: 10/14/171102 Date of Service: 10/14/171102 Status: Signed Thread Separator: Flash Gao RN (Registered Nurse) Problem: Safety Goal: Patient [...] and non-skid footwear provided. Outcome: Progressing Pt calls appropriately for needs. Bed in lowest position, bed wheels locked, side rails up x2, call light in reach. lan o f Care - Conversion Transaction, Provider Unknown - 10/14/2017 2:25 AM PDTFormatting of thi s note might be different from the original. Plan of Care by Jenn Ohara RN at 10/14/17224 Author: Jenn Ohara RN Service: (none) Author Type: Registered Nurse Filed: 10/14/17224 Date of Service: 10/14/17224 Status: Signed Thread Separator: Jenn Ohara RN (Registered Nurse) Problem: Safety Goal: Patient [...] policy, and non-skid footwear provided. Outcome: Progressing Bed in lowest position, call light and table within reach, appropriate footwear on, pt is a lert and oriented and will call prior to ambulation. docume nted in this encounter Plan of Treatment +--------+---------+ + + + | Date | Type | Specialty | Care Team | Description | +--------+---------+ + + + | 09/10/ | Office | Geriatric Medicine | Mireya Pack, | | | 2019 | Visit | | [employer] ATT[employer]NEY [address] | | | | | | [address] [place], | | | | | | [place] [address] | | | | | | [phone] | | | | | | | | +--------+---------+ + + + | 09/29/ | Office | Urology | Mireya Pack, | | | 2019 | Visit | | COMMER[employer] ATTORNEY [address] | | | | | | [address] [place], | | | | | | [place] [address] | | | | | | [phone] | | | | | | | | | | | | Toy Wild, DO | | | | | | [address] | | | | | | [place] [address] | | | | | | [phone] | | | | | | | | +--------+---------+ + + + documented as of this encounter Procedures + +--------+ + + + | Procedure Name | Priori | Date/Time | Associated Diagnosis | Comments | | | ty | | | | + +--------+ + + + | POC GLUCOSE | Routin | 10/18/2017 | | Results for this | | | e | 12:31 PM | | procedure are in the | | | | PDT | | results section. | + +--------+ + + + | PTT | Routin | 10/18/2017 | | Results for this | | | e | 5:36 AM | | procedure are in the | | | | PDT | | results section. | + +--------+ + + + | PROTIME INR | Routin | 10/18/2017 | | Results for this | | | e | 5:36 AM | | procedure are in the | | | | PDT | | results section. | + +--------+ + + + | POC GLUCOSE | Routin | 10/18/2017 | | Results for this | | | e | 5:04 AM | | procedure are in the | | | | PDT | | results section. | + +--------+ + + + | POC GLUCOSE | Routin | 10/17/2017 | | Results for this | | | e | 9:03 PM | | procedure are in the | | | | PDT | | results section. | + +--------+ + + + | PTT | Routin | 10/17/2017 | | Results for this | | | e | 7:44 PM | | procedure are in the | | | | PDT | | results section. | + +--------+ + + + | POC GLUCOSE | Routin | 10/17/2017 | | Results for this | | | e | 3:59 PM | | procedure are in the | | | | PDT | | results section. | + +--------+ + + + | ECHO LIMITED | Routin | 10/17/2017 | | Results for this | | | e | 2:05 PM | | procedure are in the | | | | PDT | | results section. | + +--------+ + + + | PTT | Routin | 10/17/2017 | | Results for this | | | e | 12:42 PM | | procedure are in the | | | | PDT | | results section. | + +--------+ + + + | POC GLUCOSE | Routin | 10/17/2017 | | Results for this | | | e | 11:26 AM | | procedure are in the | | | | PDT | | results section. | + +--------+ + + + | EXTERNAL LAB: CBC | Routin | 10/17/2017 | | Results for this | | | e | 5:22 AM | | procedure are in the | | | | PDT | | results section. | + +--------+ + + + | PTT | Routin | 10/17/2017 | | Results for this | | | e | 5:22 AM | | procedure are in the | | | | PDT | | results section. | + +--------+ + + + | PROTIME INR | Routin | 10/17/2017 | | Results for this | | | e | 5:22 AM | | procedure are in the | | | | PDT | | results section. | + +--------+ + + + | BASIC METABOLIC | Routin | 10/17/2017 | | Results for this | | PANEL | e | 5:22 AM | | procedure are in the | | | | PDT | | results section. | + +--------+ + + + | POC GLUCOSE | Routin | 10/17/2017 | | Results for this | | | e | 5:04 AM | | procedure are in the | | | | PDT | | results section. | + +--------+ + + + | POC GLUCOSE | Routin | 10/16/2017 | | Results for this | | | e | 9:08 PM | | procedure are in the | | | | PDT | | results section. | + +--------+ + + + | POC GLUCOSE | Routin | 10/16/2017 | | Results for this | | | e | 4:38 PM | | procedure are in the | | | | PDT | | results section. | + +--------+ + + + | POC GLUCOSE | Routin | 10/16/2017 | | Results for this | | | e | 11:33 AM | | procedure are in the | | | | PDT | | results section. | + +--------+ + + + | POC GLUCOSE | Routin | 10/16/2017 | | Results for this | | | e | 10:04 AM | | procedure are in the | | | | PDT | | results section. | + +--------+ + + + | NM MYOCARDIAL | Routin | 10/16/2017 | | Results for this | | PERFUSION MULT SPECT | e | 9:40 AM | | procedure are in the | | | | PDT | | results section. | + +--------+ + + + | POC GLUCOSE | Routin | 10/16/2017 | | Results for this | | | e | 5:01 AM | | procedure are in the | | | | PDT | | results section. | + +--------+ + + + | EXTERNAL LAB: CBC | Routin | 10/16/2017 | | Results for this | | | e | 4:16 AM | | procedure are in the | | | | PDT | | results section. | + +--------+ + + + | PTT | Routin | 10/16/2017 | | Results for this | | | e | 4:16 AM | | procedure are in the | | | | PDT | | results section. | + +--------+ + + + | PROTIME INR | Routin | 10/16/2017 | | Results for this | | | e | 4:16 AM | | procedure are in the | | | | PDT | | results section. | + +--------+ + + + | BASIC METABOLIC | Routin | 10/16/2017 | | Results for this | | PANEL | e | 4:16 AM | | procedure are in the | | | | PDT | | results section. | + +--------+ + + + | POC GLUCOSE | Routin | 10/15/2017 | | Results for this | | | e | 9:21 PM | | procedure are in the | | | | PDT | | results section. | + +--------+ + + + | POC GLUCOSE | Routin | 10/15/2017 | | Results for this | | | e | 4:40 PM | | procedure are in the | | | | PDT | | results section. | + +--------+ + + + | PTT | Routin | 10/15/2017 | | Results for this | | | e | 3:03 PM | | procedure are in the | | | | PDT | | results section. | + +--------+ + + + | CULTURE, URINE | Timed | 10/15/2017 | | Results for this | | | | 11:30 AM | | procedure are in the | | | | PDT | | results section. | + +--------+ + + + | POC GLUCOSE | Routin | 10/15/2017 | | Results for this | | | e | 11:01 AM | | procedure are in the | | | | PDT | | results section. | + +--------+ + + + | PTT | Routin | 10/15/2017 | | Results for this | | | e | 8:08 AM | | procedure are in the | | | | PDT | | results section. | + +--------+ + + + | CULTURE, URINE | Routin | 10/15/2017 | | Results for this | | | e | 6:12 AM | | procedure are in the | | | | PDT | | results section. | + +--------+ + + + | URINALYSIS WITH | Routin | 10/15/2017 | | Results for this | | MICROSCOPIC WITH | e | 5:52 AM | | procedure are in the | | CULTURE IF INDICATED | | PDT | | results section. | + +--------+ + + + | POC GLUCOSE | Routin | 10/15/2017 | | Results for this | | | e | 5:24 AM | | procedure are in the | | | | PDT | | results section. | + +--------+ + + + | EXTERNAL LAB: CBC | Routin | 10/15/2017 | | Results for this | | | e | 1:19 AM | | procedure are in the | | | | PDT | | results section. | + +--------+ + + + | PTT | Routin | 10/15/2017 | | Results for this | | | e | 1:19 AM | | procedure are in the | | | | PDT | | results section. | + +--------+ + + + | PROTIME INR | Routin | 10/15/2017 | | Results for this | | | e | 1:19 AM | | procedure are in the | | | | PDT | | results section. | + +--------+ + + + | HEMOGLOBIN A1C | Routin | 10/15/2017 | | Results for this | | | e | 1:19 AM | | procedure are in the | | | | PDT | | results section. | + +--------+ + + + | BASIC METABOLIC | Routin | 10/15/2017 | | Results for this | | PANEL | e | 1:19 AM | | procedure are in the | | | | PDT | | results section. | + +--------+ + + + | POC GLUCOSE | Routin | 10/14/2017 | | Results for this | | | e | 9:15 PM | | procedure are in the | | | | PDT | | results section. | + +--------+ + + + | PTT | Routin | 10/14/2017 | | Results for this | | | e | 6:21 PM | | procedure are in the | | | | PDT | | results section. | + +--------+ + + + | TROPONIN I | Routin | 10/14/2017 | | Results for this | | | e | 6:20 PM | | procedure are in the | | | | PDT | | results section. | + +--------+ + + + | CK-MB | Routin | 10/14/2017 | | Results for this | | | e | 6:20 PM | | procedure are in the | | | | PDT | | results section. | + +--------+ + + + | CK TOTAL | Routin | 10/14/2017 | | Results for this | | | e | 6:20 PM | | procedure are in the | | | | PDT | | results section. | + +--------+ + + + | POC GLUCOSE | Routin | 10/14/2017 | | Results for this | | | e | 5:36 PM | | procedure are in the | | | | PDT | | results section. | + +--------+ + + + | VAS LOWER EXTREMITY | Routin | 10/14/2017 | | Results for this | | VENOUS BILATERAL | e | 4:39 PM | | procedure are in the | | | | PDT | | results section. | + +--------+ + + + | TROPONIN I | Routin | 10/14/2017 | | Results for this | | | e | 11:47 AM | | procedure are in the | | | | PDT | | results section. | + +--------+ + + + | CK-MB | Routin | 10/14/2017 | | Results for this | | | e | 11:47 AM | | procedure are in the | | | | PDT | | results section. | + +--------+ + + + | PTT | Routin | 10/14/2017 | | Results for this | | | e | 11:47 AM | | procedure are in the | | | | PDT | | results section. | + +--------+ + + + | CK TOTAL | Routin | 10/14/2017 | | Results for this | | | e | 11:47 AM | | procedure are in the | | | | PDT | | results section. | + +--------+ + + + | POC GLUCOSE | Routin | 10/14/2017 | | Results for this | | | e | 11:20 AM | | procedure are in the | | | | PDT | | results section. | + +--------+ + + + | ECHO COMPLETE | Routin | 10/14/2017 | | Results for this | | | e | 8:45 AM | | procedure are in the | | | | PDT | | results section. | + +--------+ + + + | TROPONIN I | Routin | 10/14/2017 | | Results for this | | | e | 6:11 AM | | procedure are in the | | | | PDT | | results section. | + +--------+ + + + | CK-MB | Routin | 10/14/2017 | | Results for this | | | e | 6:11 AM | | procedure are in the | | | | PDT | | results section. | + +--------+ + + + | PTT | Routin | 10/14/2017 | | Results for this | | | e | 6:11 AM | | procedure are in the | | | | PDT | | results section. | + +--------+ + + + | CK TOTAL | Routin | 10/14/2017 | | Results for this | | | e | 6:11 AM | | procedure are in the | | | | PDT | | results section. | + +--------+ + + + | EXTERNAL LAB: CBC | Routin | 10/14/2017 | | Results for this | | | e | 6:10 AM | | procedure are in the | | | | PDT | | results section. | + +--------+ + + + | PROTIME INR | Routin | 10/14/2017 | | Results for this | | | e | 6:10 AM | | procedure are in the | | | | PDT | | results section. | + +--------+ + + + | PHOSPHORUS | Routin | 10/14/2017 | | Results for this | | | e | 6:10 AM | | procedure are in the | | | | PDT | | results section. | + +--------+ + + + | MAGNESIUM | Routin | 10/14/2017 | | Results for this | | | e | 6:10 AM | | procedure are in the | | | | PDT | | results section. | + +--------+ + + + | COMPREHENSIVE | Routin | 10/14/2017 | | Results for this | | METABOLIC PANEL | e | 6:10 AM | | procedure are in the | | | | PDT | | results section. | + +--------+ + + + | POC GLUCOSE | Routin | 10/14/2017 | | Results for this | | | e | 5:41 AM | | procedure are in the | | | | PDT | | results section. | + +--------+ + + + | VENOUS THROMBOSIS, | Routin | 10/14/2017 | | Results for this | | NON COUMADIN, REFLEX | e | 1:35 AM | | procedure are in the | | | | PDT | | results section. | + +--------+ + + + | POC GLUCOSE | Routin | 10/14/2017 | | Results for this | | | e | 1:10 AM | | procedure are in the | | | | PDT | | results section. | + +--------+ + + + | CT ANGIOGRAM | Routin | 10/13/2017 | | Results for this | | PULMONARY | e | 11:19 PM | | procedure are in the | | | | PDT | | results section. | + +--------+ + + + | XR CHEST 2 VIEWS | Routin | 10/13/2017 | | Results for this | | | e | 7:42 PM | | procedure are in the | | | | PDT | | results section. | + +--------+ + + + | ECG 12 LEAD | Routin | 10/13/2017 | | Results for this | | | e | 6:39 PM | | procedure are in the | | | | PDT | | results section. | + +--------+ + + + | HISTORICAL LAB PANEL | Routin | 10/13/2017 | | Results for this | | RESULT | e | 6:36 PM | | procedure are in the | | | | PDT | | results section. | + +--------+ + + + | TROPONIN I | Routin | 10/13/2017 | | Results for this | | | e | 6:36 PM | | procedure are in the | | | | PDT | | results section. | + +--------+ + + + | B TYPE NATRIURETIC | Routin | 10/13/2017 | | Results for this | | PEPTIDE | e | 6:36 PM | | procedure are in the | | | | PDT | | results section. | + +--------+ + + + documented in this encounter Results POC Glucose (10/18/2017 12:31 PM PDT) + + + + + + | Component | Value | Ref Range | Performed | Pathologist | | | | | At | Signature | + + + + + + | Glucose, | 248 (H)Comment: Testing | 65 - 99 mg/dL | EXTERNAL | | | Fingerstick | performed at [facility];[address] | | LAB | | | | [address];[place] | | | | | | [address] | | | | + + + + + + + + | Specimen | + + | | + + + +---------+ + + | Performing | Address | City/State/Zipcode | Phone Number | | Organization | | | | + +---------+ + + | EXTERNAL LAB | | | | + +---------+ + + PTT (10/18/2017 5:36 AM PDT) + + + + + + | Component | Value | Ref Range | Performed | Pathologist | | | | | At | Signature | + + + + + + | aPTT, | 66 (H)Comment: Testing | 23 - 32 seconds | EXTERNAL | | | Patient | performed at [facility];[address] | | LAB | | | | [address];[place], [place] | | | | | | [address] | | | | + + + + + + + + | Specimen | + + | Blood specimen | | (specimen) | + + + +---------+ + + | Performing | Address | City/State/Zipcode | Phone Number | | Organization | | | | + +---------+ + + | EXTERNAL LAB | | | | + +---------+ + + Christiano MARTINEZ (10/18/2017 5:36 AM PDT) + + + + + [...] at [facility] | | | | | | [facility];[place], [place] | | | | | | [address] | | | | + + + + + + + + | Specimen | + + | Blood specimen | | (specimen) | + + + +---------+ + + | Performing | Address | City/State/Zipcode | Phone Number | | Organization | | | | + +---------+ + + | EXTERNAL LAB | | | | + +---------+ + + POC Glucose (10/18/2017 5:04 AM PDT) + + + + + [...] | | LAB | | | | [address];[place] | | | | | | [address] | | | | + + + + + + + + | Specimen | + + | | + + + +---------+ + + | Performing | Address | City/State/Zipcode | Phone Number | | Organization | | | | + +---------+ + + | EXTERNAL LAB | | | | + +---------+ + + POC Glucose (10/17/2017 9:03 PM PDT) + + + + + + | Component | Value | Ref Range | Performed | Pathologist | | | | | At | Signature | + + + + + + | Glucose, | 282 (H)Comment: Testing | 65 - 99 mg/dL | EXTERNAL | | | Fingerstick | performed at [facility];[address] | | LAB | | | | [address];[place], [place] | | | | | | [address] | | | | + + + + + + + + | Specimen | + + | | + + + +---------+ + + | Performing | Address | City/State/Zipcode | Phone Number | | Organization | | | | + +---------+ + + | EXTERNAL LAB | | | | + +---------+ + + PTT (10/17/2017 7:44 PM PDT) + + + + + + | Component | Value | Ref Range | Performed | Pathologist | | | | | At | Signature | + + + + + + | aPTT, | 49 (H)Comment: Testing | 23 - 32 seconds | EXTERNAL | | | Patient | performed at [facility];[address] | | LAB | | | | [address];[place], [place] | | | | | | [address] | | | | + + + + + + + + | Specimen | + + | Blood specimen | | (specimen) | + + + +---------+ + + | Performing | Address | City/State/Zipcode | Phone Number | | Organization | | | | + +---------+ + + | EXTERNAL LAB | | | | + +---------+ + + POC Glucose (10/17/2017 3:59 PM PDT) + + + + + + | Component | Value | Ref Range | Performed | Pathologist | | | | | At | Signature | + + + + + + | Glucose, | 248 (H)Comment: Testing | 65 - 99 mg/dL | EXTERNAL | | | Fingerstick | performed at [facility];[address] | | LAB | | | | [address];[place], [place] | | | | | | [address] | | | | + + + + + + + + | Specimen | + + | | + + + +---------+ + + | Performing | Address | City/State/Zipcode | Phone Number | | Organization | | | | + +---------+ + + | EXTERNAL LAB | | | | + +---------+ + + Echo Limited (10/17/2017 2:05 PM PDT) + + | Specimen | + + | | + + + + + | Impressions | Performed At | + + + | 1. A limited 2-dimensional transthoracic echocardiogram with limited | | | spectral and color flow Doppler was performed. 2. Left ventricular | | | systolic function is hyperdynamic with an estimated EF of >70%. 3. No | | | EDUARDO. There is a mild resting LVOT gradient, measured at 15 mm Hg on | | | the previous study. On the current study, it was evaluated | | | Valsalva, and increases to only 19 mm Hg. There is no signficant | | | LVOT obstruction. 4. The right ventricle is normal in size and | | | function. | | + + + + + + | Narrative | Performed At | + + + | Patient Name: NORAH GR Date of : 1955 | | | Performing Physician: VEL INGRAM MD | | | | | | INDICATIONS Evaluate LVOT with valsalva CONCLUSIONS | | | 1. A limited 2-dimensional transthoracic echocardiogram | | | with limited spectral and color flow Doppler was performed. 2. Left | | | ventricular systolic function is hyperdynamic with an estimated EF of | | | >70%. 3. No EDUARDO. There is a mild resting LVOT gradient, measured at | | | 15 mm Hg on the previous study. On the current study, it was | | | evaluated Valsalva, and increases to only 19 mm Hg. There is no | | | signficant LVOT obstruction. 4. The right ventricle is normal in size | | | and function. FINDINGS -------- ECG rhythm: Sinus ECG rhythm: | | | bradycardia (HR 50 bpm). Study: A limited 2-dimensional transthoracic | | | echocardiogram with limited spectral and color flow Doppler was | | | performed. Left Ventricle: Left ventricular systolic function is | | | hyperdynamic with an estimated EF of >70% and near mid-cavitary | | | obliteration on 2-D images. Left Ventricle: There is moderate | | | concentric left ventricular hypertrophy Left Ventricle: with focal | | | hypertrophy of the basal septum. Left Ventricle: No EDUARDO. There is a | | | mild resting LVOT gradient, measured at 15 mm Hg on the previous | | | study. On the current study, it was evaluated Valsalva, and | | | increases to only 19 mm Hg. There is no signficant LVOT obstruction. | | | Right Ventricle: The right ventricle is normal in size and function. | | | Left Atrium: The left atrium is normal in size. Right Atrium: The | | | right atrium is normal in size. Aortic Valve: Aortic valve is | | | trileaflet and is mildly thickened. Aortic Valve: There is no | | | evidence of aortic regurgitation. Aortic Valve: There is no evidence | | | of aortic stenosis. Mitral Valve: No evidence of MVP Mitral Valve: | | | Mild thickening of the anterior mitral valve leaflet. MEASUREMENTS | | | HR: 52.65 BPM AV maxP.53 mmHg AV meanPG: | | | 7.36 mmHg AV Vmax: 2.09 m/s AV Vmean: 1.24 m/s AV VTI: | | | 36.25 cm HR: 56.79 BPM LVOT maxP.65 mmHg LVOT meanPG: | | | 7.77 mmHg LVOT Vmax: 1.97 m/s LVOT Vmean: 1.31 m/s LVOT | | | VTI: 35.95 cm Diesel Engine Specialist: Authenticated by: VEL | | | MD NATALY Report Date/Time: 10-17-2017 18:51:49 | | + + + + + | Procedure Note | + + | Richard, Rad Conversion - 09/19/2018 1:06 AM PDT Patient Name: Sim GR of | | : 1955 Performing Physician: VEL INGRAM, | | INDICATIONS E | | valuate LVOT with valsalva CONCLUSIONS 1. A limited 2-dimensional | | transthoracic echocardiogram with limited spectral and color flow Doppler was | | performed.2. Left ventricular systolic function is hyperdynamic with an estimated EF of | | >70%.3. No EDUARDO. There is a mild resting LVOT gradient, measured at 15 mm Hg on the | | previous study. On the current study, it was evaluated Valsalva, and increases to only | | 19 mm Hg. There is no signficant LVOT obstruction.4. The right ventricle is normal in | | size and function. FINDINGS--------ECG rhythm: SinusECG rhythm: bradycardia (HR 50 | | bpm).Study: A limited 2-dimensional transthoracic echocardiogram with limited spectral | | and color flow Doppler was performed.Left Ventricle: Left ventricular systolic function | | is hyperdynamic with an estimated EF of >70% and near mid-cavitary obliteration on 2-D | | images.Left Ventricle: There is moderate concentric left ventricular hypertrophyLeft | | Ventricle: with focal hypertrophy of the basal septum.Left Ventricle: No EDUARDO. There is | | a mild resting LVOT gradient, measured at 15 mm Hg on the previous study. On the | | current study, it was evaluated Valsalva, and increases to only 19 mm Hg. There is no | | signficant LVOT obstruction.Right Ventricle: The right ventricle is normal in size and | | function.Left Atrium: The left atrium is normal in size.Right Atrium: The right atrium | | is normal in size.Aortic Valve: Aortic valve is trileaflet and is mildly | | thickened.Aortic Valve: There is no evidence of aortic regurgitation.Aortic Valve: There | | is no evidence of aortic stenosis.Mitral Valve: No evidence of MVPMitral Valve: Mild | | thickening of the anterior mitral valve leaflet. MEASUREMENTS HR: 52.65 | | BPMAV maxP.53 mmHgAV meanP.36 mmHgAV Vmax: 2.09 m/Jason Vmean: 1.24 m/Jason | | VTI: 36.25 cmHR: 56.79 BPMLVOT maxP.65 mmHgLVOT meanP.77 mmHgLVOT | | Vmax: 1.97 m/sLVOT Vmean: 1.31 m/sLVOT VTI: 35.95 cm Diesel Engine Specialist: ASAuthenticated | | by: Ke GUERRERO Date/Time: 10-17-2017 18:51:49 IMPRESSION: 1. A limited | | 2-dimensional transthoracic echocardiogram with limited spectral and color flow Doppler | | was performed.2. Left ventricular systolic function is hyperdynamic with an estimated EF | | of >70%.3. No EDUARDO. There is a mild resting LVOT gradient, measured at 15 mm Hg on the | | previous study. On the current study, it was evaluated Valsalva, and increases to only | | 19 mm Hg. There is no signficant LVOT obstruction.4. The right ventricle is normal in | | size and function. | |Aortic Valve: There is no evidence of aortic stenosis. | |Mitral Valve: No evidence of MVP | |Mitral Valve: Mild thickening of the anterior mitral valve leaflet. | | | |MEASUREMENTS | | | |HR: 52.65 BPM | |AV maxP.53 mmHg | |AV meanP.36 mmHg | |AV Vmax: 2.09 m/s | |AV Vmean: 1.24 m/s | |AV VTI: 36.25 cm | |HR: 56.79 BPM | |LVOT maxP.65 mmHg | |LVOT meanP.77 mmHg | |LVOT Vmax: 1.97 m/s | |LVOT Vmean: 1.31 m/s | |LVOT VTI: 35.95 cm | | | |Diesel Engine Specialist: | |Authenticated by: VEL INGRAM MD | |Report Date/Time: 10-17-2017 18:51:49 | | | |IMPRESSION: | |1. A limited 2-dimensional transthoracic echocardiogram with limited spectral and color huyen w Doppler was performed. | |2. Left ventricular systolic function is hyperdynamic with an estimated EF of >70%. | |3. No EDUARDO. There is a mild resting LVOT gradient, measured at 15 mm Hg on the previous kyung dy. On the current study, it was evaluated Valsalva, and increases to only 19 mm Hg. There is no signficant LVOT obstruction. | |4. The right ventricle is normal in size and function. | + + PTT (10/17/2017 12:42 PM PDT) + + + + + + | Component | Value | Ref Range | Performed | Pathologist | | | | | At | Signature | + + + + + + | aPTT, | 62 (H)Comment: Testing | 23 - 32 seconds | EXTERNAL | | | Patient | performed at [facility];[address] | | LAB | | | | [address];[place] | | | | | | [address] | | | | + + + + + + + + | Specimen | + + | Blood specimen | | (specimen) | + + + +---------+ + + | Performing | Address | City/State/Zipcode | Phone Number | | Organization | | | | + +---------+ + + | EXTERNAL LAB | | | | + +---------+ + + POC Glucose (10/17/2017 11:26 AM PDT) + + + + + [...] | LAB | | | | [address];[place] | | | | | | [address] | | | | + + + + + + + + | Specimen | + + | | + + + +---------+ + + | Performing | Address | City/State/Zipcode | Phone Number | | Organization | | | | + +---------+ + + | EXTERNAL LAB | | | | + +---------+ + + PTT (10/17/2017 5:22 AM PDT) + + + + + + | Component | Value | Ref Range | Performed | Pathologist | | | | | At | Signature | + + + + + + | aPTT, | 71 (H)Comment: Testing | 23 - 32 seconds | EXTERNAL | | | Patient | performed at [facility];[address] | | LAB | | | | [address];[place] | | | | | | [address] | | | | + + + + + + + + | Specimen | + + | Blood specimen | | (specimen) | + + + +---------+ + + | Performing | Address | City/State/Zipcode | Phone Number | | Organization | | | | + +---------+ + + | EXTERNAL LAB | | | | + +---------+ + + Protime INR (10/17/2017 5:22 AM PDT) + + + + + + | Component | Value | Ref Range | Performed | Pathologist | | | | | At | Signature | + + + + + + | INR | 1.4Comment: REFERENCE | | EXTERNAL | | | [...] at [facility] | | | | | | [facility];[place], [place] | | | | | | [address] | | | | + + + [...] + +---------+ + + External Lab: CBC (10/17/2017 5:22 AM PDT) + + + + + + | Component | Value | Ref Range | Performed | Pathologist | | | | | At | Signature | + + + + + + | WBC | 9.58 | 3.80 - 11.00 | EXTERNAL | | | | | K/uL | LAB | | + + + + + + | Non- | 4.51 | 4.20 - 5.70 | EXTERNAL | | | Red Blood | | M/uL | LAB | | | Cells | | | | | | Counted | | | | | + + + + + + | Hemoglobin | 12.9 (L) | 13.2 - 17.0 | EXTERNAL | | | | | g/dL | LAB | | + + + + + + | Hematocrit, | 37.2 (L) | 39.0 - 50.0 % | EXTERNAL | | | POC | | | LAB | | + + + + + + | MCV | 82.4 | 80.0 - 100.0 fl | EXTERNAL | | | | | | LAB | | + + + + + + | MCH | 28.5 | 27.0 - 34.0 pg | EXTERNAL | | | | | | LAB | | + + + + + + | MCHC | 34.6 | 32.0 - 35.5 | EXTERNAL | | | | | g/dL | LAB | | + + + + + + | RDW-CV | 45.5 | 37 - 53 fl | EXTERNAL | | | | | | LAB | | + + + + + + | Platelet | 287 | 150 - 400 K/uL | EXTERNAL | | | Count | | | LAB | | | Plasma | | | | | + + + + + + | MPV | 8.4 | fl | EXTERNAL | | | | | | LAB | | + + + + + + | Differentia | AUTOMATED | | EXTERNAL | | | l Type | | | LAB | | + + + + + + | % Segmented | 51.56 | % | EXTERNAL | | | | | | LAB | | | Neutrophils | | | | | + + + + + + | % | 34.21 | % | EXTERNAL | | | Lymphocytes | | | LAB | | + + + + + + | % Monocytes | 9.01 | % | EXTERNAL | | | | | | LAB | | + + + + + + | % | 4.52 | % | EXTERNAL | | | Eosinophils | | | LAB | | + + + + + + | % Basophils | 0.70 | % | EXTERNAL | | | | | | LAB | | + + + + + + | Absolute | 4.94 | 1.90 - 7.40 | EXTERNAL | | | Segmented | | K/uL | LAB | | | Neutrophils | | | | | + + + + + + | Absolute | 3.28 | 1.00 - 3.90 | EXTERNAL | | | Lymphocytes | | K/uL | LAB | | + + + + + + | Absolute | 0.86 (H) | 0.00 - 0.80 | EXTERNAL | | | Monocytes | | K/uL | LAB | | + + + + + + | Absolute | 0.43 | 0.00 - 0.50 | EXTERNAL | | | Eosinophils | | K/uL | LAB | | + + + + + + | Absolute | 0.07Comment: Testing | 0.00 - 0.10 | EXTERNAL | | | Basophils | performed at [facility], [address] | K/uL | LAB | | | | [address], | | | | | | [place] [address] | | | | + + + [...] + +---------+ + + Basic Metabolic Panel (10/17/2017 5:22 AM PDT) + + + + + + | Component | Value | Ref Range | Performed | Pathologist | | | | | At | Signature | + + + + + + | Na | 138 | 135 - 145 | EXTERNAL | | | | | mmol/L | LAB | | + + + + + + | K | 4.0 | 3.5 - [...] + + + | Glucose, | 224 (H) | 65 - 99 mg/dL | EXTERNAL | | | Fasting | | | LAB | | + + + + + + | BUN | 20 | 8 - 25 mg/dL | EXTERNAL | | | | | | LAB | | + + + + + + | Creatinine | 1.2 | 0.70 - 1.30 | EXTERNAL | | | | | mg/dL | LAB | | + + + + + + | BUN/Creatin | 17 | | EXTERNAL | | | ine Ratio | | | LAB | | + + + + + + | Calcium | 9.5 | 8.5 - 10.5 | EXTERNAL | [...] | | | | | performed at [facility], [address] | | | | | | [facility], | | | | | | [place] [address] | | | | + + + + + + + + | Specimen | + + | Blood specimen | | (specimen) | + + + +---------+ + + | Performing | Address | City/State/Zipcode | Phone Number | | Organization | | | | + +---------+ + + | EXTERNAL LAB | | | | + +---------+ + + POC Glucose (10/17/2017 5:04 AM PDT) + + + + + [...] | | LAB | | | | [address];[place], [place] | | | | | | [address] | | | | + + + + + + + + | Specimen | + + | | + + + +---------+ + + | Performing | Address | City/State/Zipcode | Phone Number | | Organization | | | | + +---------+ + + | EXTERNAL LAB | | | | + +---------+ + + POC Glucose (10/16/2017 9:08 PM PDT) + + + + + + | Component | Value | Ref Range | Performed | Pathologist | | | | | At | Signature | + + + + + + | Glucose, | 291 (H)Comment: Testing | 65 - 99 mg/dL | EXTERNAL | | | Fingerstick | performed at [facility];[address] | | LAB | | | | [address];[place] | | | | | | [address] | | | | + + + + + + + + | Specimen | + + | | + + + +---------+ + + | Performing | Address | City/State/Zipcode | Phone Number | | Organization | | | | + +---------+ + + | EXTERNAL LAB | | | | + +---------+ + + POC Glucose (10/16/2017 4:38 PM PDT) + + + + + + | Component | Value | Ref Range | Performed | Pathologist | | | | | At | Signature | + + + + + + | Glucose, | 211 (H)Comment: Testing | 65 - 99 mg/dL | EXTERNAL | | | Fingerstick | performed at [facility];[address] | | LAB | | | | [address];[place] | | | | | | [address] | | | | + + + + + + + + | Specimen | + + | | + + + +---------+ + + | Performing | Address | City/State/Zipcode | Phone Number | | Organization | | | | + +---------+ + + | EXTERNAL LAB | | | | + +---------+ + + POC Glucose (10/16/2017 11:33 AM PDT) + + + + + + | Component | Value | Ref Range | Performed | Pathologist | | | | | At | Signature | + + + + + + | Glucose, | 317 (H)Comment: Testing | 65 - 99 mg/dL | EXTERNAL | | | Fingerstick | performed at [facility];[address] | | LAB | | | | [address];[place] | | | | | | [address] | | | | + + + + + + + + | Specimen | + + | | + + + +---------+ + + | Performing | Address | City/State/Zipcode | Phone Number | | Organization | | | | + +---------+ + + | EXTERNAL LAB | | | | + +---------+ + + POC Glucose (10/16/2017 10:04 AM PDT) + + + + + + | Component | Value | Ref Range | Performed | Pathologist | | | | | At | Signature | + + + + + + | Glucose, | 183 (H)Comment: Testing | 65 - 99 mg/dL | EXTERNAL | | | Fingerstick | performed at [facility];[address] | | LAB | | | | [address];[place], [place] | | | | | | [address] | | | | + + + + + + + + | Specimen | + + | | + + + +---------+ + + | Performing | Address | City/State/Zipcode | Phone Number | | Organization | | | | + +---------+ + + | EXTERNAL LAB | | | | + +---------+ + + NM Myocardial Perfusion Mult SPECT (10/16/2017 9:40 AM PDT) + + | Specimen | + + | | + + + + + | Impressions | Performed At | + + + | 1. No reversible defects to suggest acute left ventricular | | | ischemia. 2. Left ventricular stress ejection fraction is | | | calculated at 62%. Using the risk stratification system at our | | | institution, this examination equates to at least a low risk based on | | | this imaging, arising from the criteria below (1). Note that this | | | should be interfaced with clinical and other data, potentially | | | affecting final categorization. 1. [employer] | | | and [employer] Scientific Statement. Circulation | | | (2008); 118: p 3837-9775 Selection Text Definition Low | | | Risk 1.Normal or small myocardial perfusion defect at rest or with | | | stress.* 2. No change of resting wall motion abnormalities during | | | stress* . * Although the published data are limited, patients | | | with these findings will probably not be at low risk in the presence | | | of either a high-risk treadmill score or severe resting left | | | ventricular dysfunction (LVEF <35%). Low risk equates with a less | | | than 1% annual mortality rate. Intermediate Risk 1. | | | Mild/moderate resting left ventricular dysfunction (LVEF=35% to 49%). | | | 2. Stress-induced moderate perfusion defect without LV dilation | | | or increased lung intake Intermediate risk equates with a 1%-3% | | | annual mortality rate. High Risk 1. Severe resting left | | | ventricular dysfunction (exercise LVEF <35%) 2. Severe exercise | | | left ventricular dysfunction (exercise LVEF <35%) 3. | | | Stress-induced large perfusion defect (particularly if anterior) | | | 4. Stress-induced multiple perfusion defects of moderate size 5. | | | Large, fixed perfusion defect with LV dilation 6. | | | Stress-induced moderate perfusion defect with LV dilation High | | | risk equates with a greater than 3% annual mortality rate. 1. | | | | | + + + + + + | Narrative | Performed At | + + + | [facility] MYOCARDIAL PERFUSION SPECT - STRESS AND REST | | | 10/16/2017 9:40 AM HISTORY: 61 years. Male. Chest pain. | | | TECHNIQUE: A same day, dual-isotope protocol was used. For the | | | resting portion of the study the patient was injected intravenously | | | with 11 mCi of technetium 99 labeled Myoview. Gated SPECT imaging | | | was performed in the supine position. The patient was then | | | pharmacologically stressed with 0.4 mg of regadenoson intravenously | | | according to protocol. Resting heart rate vasiliy from 51 beats/min to | | | 82 beats/min which was 51% of the maximum age-predicted heart rate. | | | At the point of maximum stress, the patient received 33 mCi of | | | technetium 99m labeled Myoview intravenously. Gated SPECT images | | | were acquired in the supine position only. The patient was unable to | | | tolerate prone imaging. Chest pain: None. Arrhythmias: None. ST | | | segment changes: T wave inversion inferolateral leads COMPARISON: | | | None. FINDINGS: All segments of the ventricular myocardium | | | demonstrate normal perfusion, when accounting for probable | | | diaphragmatic attenuation in the inferior wall. Wall motion is normal | | | in all segments. The following functional stress data was | | | obtained: End-diastolic volume: 109 mL End-systolic volume: 42 mL | | | Ejection fraction: 62% The following functional rest data was | | | obtained: End-diastolic volume: 110 mL End-systolic volume: 45 mL | | | Ejection fraction: 59% | | + + + + + | Procedure Note | + + | Richard, Rad Conversion - 09/19/2018 1:06 AM [facility] MYOCARDIAL PERFUSION | | SPECT - STRESS AND REST10/16/2017 9:40 AM HISTORY:61 years. Male. Chest pain. | | TECHNIQUE:A same day, dual-isotope protocol was used. For the resting portion of the | | study the patient was injected intravenously with 11 mCi of technetium 99 labeled | | Myoview. Gated SPECT imaging was performed in the supine position. The patient was then | | pharmacologically stressed with 0.4 mg of regadenoson intravenously according to | | protocol. Resting heart rate vasiliy from 51 beats/min to 82 beats/min which was 51% of | | the maximum age-predicted heart rate. At the point of maximum stress, the patient | | received 33 mCi of technetium 99m labeled Myoview intravenously. Gated SPECT images | | were acquired in the supine position only. The patient was unable to tolerate prone | | imaging. Chest pain: None.Arrhythmias: None.ST segment changes: T wave inversion | | inferolateral leads COMPARISON:None. FINDINGS:All segments of the ventricular myocardium | | demonstrate normal perfusion, when accounting for probable diaphragmatic attenuation in | | the inferior wall. Wall motion is normal in all segments. The following functional | | stress data was obtained:End-diastolic volume: 109 mLEnd-systolic volume: 42 mLEjection | | fraction: 62% The following functional rest data was obtained:End-diastolic volume: 110 | | mLEnd-systolic volume: 45 mLEjection fraction: 59% IMPRESSION: 1. No reversible defects | | to suggest acute left ventricular ischemia.2. Left ventricular stress ejection | | fraction is calculated at 62%. Using the risk stratification system at our institution, | | this examination equates to at least a low risk based on this imaging, arising from the | | criteria below (1). Note that this should be interfaced with clinical and other data, | | potentially affecting final categorization. 1. [employer] and [employer] | | College of Cardiology Scientific Statement. Circulation (2008); 118: p 5490-9161 | | Selection Text Definition Low Risk 1.Normal or small myocardial perfusion defect at | | rest or with stress.* 2. No change of resting wall motion abnormalities during stress* . | | * Although the published data are limited, patients with these findings will probably | | not be at low risk in the presence of either a high-risk treadmill score or severe | | resting left ventricular dysfunction (LVEF <35%). Low risk equates with a less than 1% | | annual mortality rate. Intermediate Risk 1. Mild/moderate resting left ventricular | | dysfunction (LVEF=35% to 49%). 2. Stress-induced moderate perfusion defect without LV | | dilation or increased lung intake Intermediate risk equates with a 1%-3% annual | | mortality rate. High Risk 1. Severe resting left ventricular dysfunction (exercise | | LVEF <35%) 2. Severe exercise left ventricular dysfunction (exercise LVEF <35%) 3. | | Stress-induced large perfusion defect (particularly if anterior) 4. Stress-induced | | multiple perfusion defects of moderate size5. Large, fixed perfusion defect with LV | | dilation 6. Stress-induced moderate perfusion defect with LV dilation High risk equates | | with a greater than 3% annual mortality rate.1. | |other data, potentially affecting | |final categorization. | | | |1. [employer] and [employer] [employer] Scientific Statement. Cir culation (2008); 118: p 4622-9593 | | | | | |Selection Text Definition | | | |Low Risk | | | |1.Normal or small myocardial perfusion defect at rest or with stress.* | | | |2. No change of resting wall motion abnormalities during stress* . | | | |* Although the published data are limited, patients with these findings will probably not b e at low risk in the presence of either a high-risk treadmill score or severe resting left v entricular dysfunction (LVEF <35%). | | | |Low risk equates with a less than 1% annual mortality rate. | | | | | |Intermediate Risk 1. Mild/moderate resting left ventricular dysfunction (LVEF=35% to 49%). | | | |2. Stress-induced moderate perfusion defect without LV dilation or increased lung intake | | | |Intermediate risk equates with a 1%-3% annual mortality rate. | | | | | |High Risk 1. Severe resting left ventricular dysfunction (exercise LVEF <35%) | | | |2. Severe exercise left ventricular dysfunction (exercise LVEF <35%) | | | |3. Stress-induced large perfusion defect (particularly if anterior) | | | |4. Stress-induced multiple perfusion defects of moderate size | |5. Large, fixed perfusion defect with LV dilation | | | |6. Stress-induced moderate perfusion defect with LV dilation | | | |High risk equates with a greater than 3% annual mortality rate. | |1. | | | | | + + POC Glucose (10/16/2017 5:01 AM PDT) + + + + + + | Component | Value | Ref Range | Performed | Pathologist | | | | | At | Signature | + + + + + + | Glucose, | 201 (H)Comment: Testing | 65 - 99 mg/dL | EXTERNAL | | | Fingerstick | performed at [facility];[address] | | LAB | | | | [address];[place] | | | | | | [address] | | | | + + + + + + + + | Specimen | + + | | + + + +---------+ + + | Performing | Address | City/State/Zipcode | Phone Number | | Organization | | | | + +---------+ + + | EXTERNAL LAB | | | | + +---------+ + + PTT (10/16/2017 4:16 AM PDT) + + + + + + | Component | Value | Ref Range | Performed | Pathologist | | | | | At | Signature | + + + + + + | aPTT, | 63 (H)Comment: Testing | 23 - 32 seconds | EXTERNAL | | | Patient | performed at [facility];[address] | | LAB | | | | [address];[place] | | | | | | [address] | | | | + + + + + + + + | Specimen | + + | Blood specimen | | (specimen) | + + + +---------+ + + | Performing | Address | City/State/Zipcode | Phone Number | | Organization | | | | + +---------+ + + | EXTERNAL LAB | | | | + +---------+ + + Hayime JUAN (10/16/2017 4:16 AM PDT) + + + + + [...] at [facility] | | | | | | [address];[place], [place] | | | | | | [address] | | | | + + + [...] + +---------+ + + External Lab: CBC (10/16/2017 4:16 AM PDT) + + + + + + | Component | Value | Ref Range | Performed | Pathologist | | | | | At | Signature | + + + + + + | WBC | 10.92 | 3.80 - 11.00 | EXTERNAL | | | | | K/uL | LAB | | + + + + + + | Non- | 4.42 | 4.20 - 5.70 | EXTERNAL | | | Red Blood | | M/uL | LAB | | | Cells | | | | | | Counted | | | | | + + + + + + | Hemoglobin | 12.5 (L) | 13.2 - 17.0 | EXTERNAL | | | | | g/dL | LAB | | + + + + + + | Hematocrit, | 36.4 (L) | 39.0 - 50.0 % | EXTERNAL | | | POC | | | LAB | | + + + + + + | MCV | 82.3 | 80.0 - 100.0 fl | EXTERNAL | | | | | | LAB | | + + + + + + | MCH | 28.3 | 27.0 - 34.0 pg | EXTERNAL | | | | | | LAB | | + + + + + + | MCHC | 34.4 | 32.0 - 35.5 | EXTERNAL | | | | | g/dL | LAB | | + + + + + + | RDW-CV | 45.1 | 37 - 53 fl | EXTERNAL | | | | | | LAB | | + + + + + + | Platelet | 275 | 150 - 400 K/uL | EXTERNAL [...] + + + | % Segmented | 60.08 | % | EXTERNAL | | | | | | LAB | | | Neutrophils | | | | | + + + + + + | % | 26.79 | % | EXTERNAL | | | Lymphocytes | | | LAB | | + + + + + + | % Monocytes | 8.99 | % | EXTERNAL | | | | | | LAB | | + + + + + + | % | 3.46 | % | EXTERNAL | | | Eosinophils | | | LAB | | + + + + + + | % Basophils | 0.68 | % | EXTERNAL | | | | | | LAB | | + + + + + + | Absolute | 6.56 | 1.90 - 7.40 | EXTERNAL | | | Segmented | | K/uL | LAB | | | Neutrophils | | | | | + + + + + + | Absolute | 2.93 | 1.00 - 3.90 | EXTERNAL | | | Lymphocytes | | K/uL | LAB | | + + + + + + | Absolute | 0.98 (H) | 0.00 - 0.80 | EXTERNAL | | | Monocytes | | K/uL | LAB | | + + + + + + | Absolute | 0.38 | 0.00 - 0.50 | EXTERNAL | | | Eosinophils | | K/uL | LAB | | + + + + + + | Absolute | 0.07Comment: Testing | 0.00 - 0.10 | EXTERNAL | | | Basophils | performed at [facility], [address] | K[address] | LAB | | | | [address], | | | | | | [place] [address] | | | | + + + [...] + +---------+ + + Basic Metabolic Panel (10/16/2017 4:16 AM PDT) + + + + + [...] | 4.1 | 3.5 - 4.9 | EXTERNAL | [...] + + + + | Glucose, | 204 (H) | 65 - 99 mg/dL | EXTERNAL | | | Fasting | | | LAB | | + + + + + + | BUN | 21 | 8 - 25 mg/dL | EXTERNAL | | | | | | LAB | | + + + + + + | Creatinine | 1.2 | 0.70 - 1.30 | EXTERNAL | | | | | mg/dL | LAB | | + + + + + + | BUN/Creatin | 18 | | EXTERNAL [...] | | | | | performed at [facility], [address] | | | | | | [facility], | | | | | | [place] [address] | | | | + + + + + + + + | Specimen | + + | Blood specimen | | (specimen) | + + + +---------+ + + | Performing | Address | City/State/Zipcode | Phone Number | | Organization | | | | + +---------+ + + | EXTERNAL LAB | | | | + +---------+ + + POC Glucose (10/15/2017 9:21 PM PDT) + + + + + + | Component | Value | Ref Range | Performed | Pathologist | | | | | At | Signature | + + + + + + | Glucose, | 201 (H)Comment: Testing | 65 - 99 mg/dL | EXTERNAL | | | Fingerstick | performed at [facility];[address] | | LAB | | | | [address];[place] | | | | | | [address] | | | | + + + + + + + + | Specimen | + + | | + + + +---------+ + + | Performing | Address | City/State/Zipcode | Phone Number | | Organization | | | | + +---------+ + + | EXTERNAL LAB | | | | + +---------+ + + POC Glucose (10/15/2017 4:40 PM PDT) + + + + + + | Component | Value | Ref Range | Performed | Pathologist | | | | | At | Signature | + + + + + + | Glucose, | 206 (H)Comment: Testing | 65 - 99 mg/dL | EXTERNAL | | | Fingerstick | performed at [facility];[address] | | LAB | | | | [address];[place] | | | | | | [address] | | | | + + + + + + + + | Specimen | + + | | + + + +---------+ + + | Performing | Address | City/State/Zipcode | Phone Number | | Organization | | | | + +---------+ + + | EXTERNAL LAB | | | | + +---------+ + + PTT (10/15/2017 3:03 PM PDT) + + + + + + | Component | Value | Ref Range | Performed | Pathologist | | | | | At | Signature | + + + + + + | aPTT, | 54 (H)Comment: Testing | 23 - 32 seconds | EXTERNAL | | | Patient | performed at [facility];[address] | | LAB | | | | [address];[place] | | | | | | [address] | | | | + + + + + + + + | Specimen | + + | Blood specimen | | (specimen) | + + + +---------+ + + | Performing | Address | City/State/Zipcode | Phone Number | | Organization | | | | + +---------+ + + | EXTERNAL LAB | | | | + +---------+ + + Culture, Urine (10/15/2017 11:30 AM PDT) + + | Specimen | + + | Urine specimen | | (specimen) | + + + + + | Narrative | Performed At | + + + | Specimen Description URINE,CLEAN CATCH CULTURE | EXTERNAL LAB | | >100,000 CFU/ML | | | PROTEUS MIRABILISAbnormal | | | Suscepibility for - PROTEUS MIRABILIS Ampicillin | | | SUSCEPTIBLESensitive Ampicillin + Sulbactam | | | SUSCEPTIBLESensitive Cefazolin | | | RESISTANT Resistant Cefepime | | | SUSCEPTIBLESensitive Cefoxitin | | | SUSCEPTIBLESensitive Ceftazidime | | | SUSCEPTIBLESensitive Ceftriaxone | | | SUSCEPTIBLESensitive Ciprofloxacin | | | SUSCEPTIBLESensitive Gentamicin | | | SUSCEPTIBLESensitive Levofloxacin | | | SUSCEPTIBLESensitive Nitrofurantoin | | | RESISTANT Resistant Tobramycin | | | SUSCEPTIBLESensitive Trimethoprim + | | | SulfamethoxazoleSUSCEPTIBLESensitive | | + + + + +---------+ + + | Performing | Address | City/State/Zipcode | Phone Number | | Organization | | | | + +---------+ + + | EXTERNAL LAB | | | | + +---------+ + + POC Glucose (10/15/2017 11:01 AM PDT) + + + + + + | Component | Value | Ref Range | Performed | Pathologist | | | | | At | Signature | + + + + + + | Glucose, | 263 (H)Comment: Testing | 65 - 99 mg/dL | EXTERNAL | | | Fingerstick | performed at [facility];[address] | | LAB | | | | [address];[place] | | | | | | [address] | | | | + + + + + + + + | Specimen | + + | | + + + +---------+ + + | Performing | Address | City/State/Zipcode | Phone Number | | Organization | | | | + +---------+ + + | EXTERNAL LAB | | | | + +---------+ + + PTT (10/15/2017 8:08 AM PDT) + + + + + + | Component | Value | Ref Range | Performed | Pathologist | | | | | At | Signature | + + + + + + | aPTT, | 54 (H)Comment: Testing | 23 - 32 seconds | EXTERNAL | | | Patient | performed at [facility];[address] | | LAB | | | | [address];[place] | | | | | | [address] | | | | + + + + + + + + | Specimen | + + | Blood specimen | | (specimen) | + + + +---------+ + + | Performing | Address | City/State/Zipcode | Phone Number | | Organization | | | | + +---------+ + + | EXTERNAL LAB | | | | + +---------+ + + Culture, Urine (10/15/2017 6:12 AM PDT) + + | Specimen | + + | | + + + + + | Narrative | Performed At | + + + | Specimen Description CLEAN CATCH URINE CULTURE | EXTERNAL LAB | | >100,000 CFU/ML | | | PROTEUS MIRABILISAbnormal | | | Suscepibility for - PROTEUS MIRABILIS Ampicillin | | | SUSCEPTIBLESensitive Ampicillin + Sulbactam | | | SUSCEPTIBLESensitive Cefepime | | | SUSCEPTIBLESensitive Cefoxitin | | | SUSCEPTIBLESensitive Ceftazidime | | | SUSCEPTIBLESensitive Ceftriaxone | | | SUSCEPTIBLESensitive Ciprofloxacin | | | SUSCEPTIBLESensitive Gentamicin | | | SUSCEPTIBLESensitive Levofloxacin | | | SUSCEPTIBLESensitive Nitrofurantoin | | | RESISTANT Resistant Tobramycin | | | SUSCEPTIBLESensitive Trimethoprim + | | | SulfamethoxazoleSUSCEPTIBLESensitive | | + + + + +---------+ + + | Performing | Address | City/State/Zipcode | Phone Number | | Organization | | | | + +---------+ + + | EXTERNAL LAB | | | | + +---------+ + + Urinalysis with Microscopic with Culture if Indicated (10/15/2017 5:52 AM PDT) + + + + + + | Component | Value | Ref Range | Performed | Pathologist | | | | | At | Signature | + + + + + + | Color | YELLOW | | EXTERNAL | | | | | | LAB | | + + + + + + | Clarity, | CLOUDY | | EXTERNAL | | | Urine | | | LAB | | + + + + + + | Specific | 1.008 | 1.002 - 1.030 | EXTERNAL | | | [place], | | | LAB | | | Urine | | | | | + + + + + + | Leukocyte | LARGE (A) | | EXTERNAL | | | [...] + + + + | Protein, | 100 (A) | mg/dL | EXTERNAL | | | Urine | | | LAB | | + + + + + + | pH, Urine | 6.0 | 5.0 - 8.0 | EXTERNAL | | | | | | LAB | | + + + + + + | Blood, | LARGE (A) | | EXTERNAL | | | Urine [...] + + + | WBC, UA | >100 | 0 - 5 /hpf | EXTERNAL | | | | | | LAB | | + + + + + + | RBC, UA | 50-100 | 0 - 2 /hpf | EXTERNAL | | | | | | LAB | | + + + + + + | Epithelial | NONE SEEN | /lpf | EXTERNAL | | | Cells | | | LAB | | + + + + + + | Bacteria, | 2+ (A) | | EXTERNAL | | | UA | | | LAB | | + + + + + + | Yeast, UA, | 3+ | /hpf | EXTERNAL | | | POC | | | LAB | | + + + + + + | Mucus, | 1+Comment: Testing | | EXTERNAL | | | Urine | performed at [facility];[address] | | LAB | | | | [address];[place], [place] | | | | | | [address] | | | | + + + + + + + + | Specimen | + + | | + + + +---------+ + + | Performing | Address | City/State/Zipcode | Phone Number | | Organization | | | | + +---------+ + + | EXTERNAL LAB | | | | + +---------+ + + POC Glucose (10/15/2017 5:24 AM PDT) + + + + + + | Component | Value | Ref Range | Performed | Pathologist | | | | | At | Signature | + + + + + + | Glucose, | 260 (H)Comment: Testing | 65 - 99 mg/dL | EXTERNAL | | | Fingerstick | performed at [facility];[address] | | LAB | | | | [address];[place] | | | | | | [address] | | | | + + + + + + + + | Specimen | + + | | + + + +---------+ + + | Performing | Address | City/State/Zipcode | Phone Number | | Organization | | | | + +---------+ + + | EXTERNAL LAB | | | | + +---------+ + + PTT (10/15/2017 1:19 AM PDT) + + + + + + | Component | Value | Ref Range | Performed | Pathologist | | | | | At | Signature | + + + + + + | aPTT, | 45 (H)Comment: Testing | 23 - 32 seconds | EXTERNAL | | | Patient | performed at [facility];[address] | | LAB | | | | [address];[place], [place] | | | | | | [address] | | | | + + + + + + + + | Specimen | + + | | + + + +---------+ + + | Performing | Address | City/State/Zipcode | Phone Number | | Organization | | | | + +---------+ + + | EXTERNAL LAB | | | | + +---------+ + + Protime INR (10/15/2017 1:19 AM PDT) + + + + + [...] at [facility] | | | | | | [facility];[place] | | | | | | [address] | | | | + + + [...] + +---------+ + + External Lab: CBC (10/15/2017 1:19 AM PDT) + + + + + + | Component | Value | Ref Range | Performed | Pathologist | | | | | At | Signature | + + + + + + | WBC | 10.57 | 3.80 - 11.00 | EXTERNAL | | | | | K/uL | LAB | | + + + + + + | Non- | 4.29 | 4.20 - 5.70 | EXTERNAL | | | Red Blood | | M/uL | LAB | | | Cells | | | | | | Counted | | | | | + + + + + + | Hemoglobin | 12.2 (L) | 13.2 - 17.0 | EXTERNAL | | | | | g/dL | LAB | | + + + + + + | Hematocrit, | 35.1 (L) | 39.0 - 50.0 % | EXTERNAL | | | POC | | | LAB | | + + + + + + | MCV | 81.8 | 80.0 - 100.0 fl | EXTERNAL | | | | | | LAB | | + + + + + + | MCH | 28.4 | 27.0 - 34.0 pg | EXTERNAL | | | | | | LAB | | + + + + + + | MCHC | 34.7 | 32.0 - 35.5 | EXTERNAL | | | | | g/dL | LAB | | + + + + + + | RDW-CV | 44.2 | 37 - 53 fl | EXTERNAL | | | | | | LAB | | + + + + + + | Platelet | 273 | 150 - 400 K/uL | EXTERNAL [...] + + + | % Segmented | 48.17 | % | EXTERNAL | | | | | | LAB | | | Neutrophils | | | | | + + + + + + | % | 39.51 | % | EXTERNAL | | | Lymphocytes | | | LAB | | + + + + + + | % Monocytes | 8.33 | % | EXTERNAL | | | | | | LAB | | + + + + + + | % | 2.80 | % | EXTERNAL | | | Eosinophils | | | LAB | | + + + + + + | % Basophils | 1.19 | % | EXTERNAL | | | | | | LAB | | + + + + + + | Absolute | 5.09 | 1.90 - 7.40 | EXTERNAL | | | Segmented | | K/uL | LAB | | | Neutrophils | | | | | + + + + + + | Absolute | 4.18 (H) | 1.00 - 3.90 | EXTERNAL | | | Lymphocytes | | K/uL | LAB | | + + + + + + | Absolute | 0.88 (H) | 0.00 - 0.80 | EXTERNAL | | | Monocytes | | K/uL | LAB | | + + + + + + | Absolute | 0.30 | 0.00 - 0.50 | EXTERNAL | | | Eosinophils | | K/uL | LAB | | + + + + + + | Absolute | 0.13 (H)Comment: Testing | 0.00 - 0.10 | EXTERNAL | | | Basophils | performed at [facility], [address] | [address] | [address] | | | | [address], | | | | | | [place] [address] | | | | + + + + + + + + | Specimen | + + | Blood specimen | | (specimen) | + + + +---------+ + + | Performing | Address | City/State/Zipcode | Phone Number | | Organization | | | | + +---------+ + + | EXTERNAL LAB | | | | + +---------+ + + Hemoglobin A1C (10/15/2017 1:19 AM PDT) + + + + + + | Component | Value | Ref Range | Performed | Pathologist | | | | | At | Signature | + + + + + + | Hemoglobin | 10.3 (H)Comment: The | 4.0 - 6.0 % | EXTERNAL | | | A1c | [facility] | | LAB | | | [...] + + + + | Glycohemogl | 249Comment: The ADA | mg/dL | EXTERNAL | [...] | | | | | performed at [facility], [address] | | | | | | [facility], | | | | | | [place] [address] | | | | + + + [...] + +---------+ + + Basic Metabolic Panel (10/15/2017 1:19 AM PDT) + + + + + + | Component | Value | Ref Range | Performed | Pathologist | | | | | At | Signature | + + + + + + | Na | 137 | 135 - 145 | EXTERNAL | | | | | mmol/L | LAB | | + + + + + + | K | 4.1 | 3.5 - 4.9 | EXTERNAL | | | | | mmol/L | LAB | | + + + + + + | Cl | 102 | 99 - 109 mmol/L | EXTERNAL | | | | | | LAB | | + + + + + + | CO2 | 24 | 23 - 32 mmol/L | EXTERNAL | | | | | | LAB | | + + + + + + | Anion Gap | 15 | 5 - 20 mmol/L | EXTERNAL | | | | | | LAB | | + + + + + + | Glucose, | 257 (H) | 65 - 99 mg/dL | EXTERNAL | | | Fasting | | | LAB | | + + + + + + | BUN | 17 | 8 - 25 mg/dL | EXTERNAL | | | | | | LAB | | + + + + + + | Creatinine | 1.1 | 0.70 - 1.30 | EXTERNAL | | | | | mg/dL | LAB | | + + + + + + | BUN/Creatin | 15 | | EXTERNAL | | | ine Ratio | | | LAB | | + + + + + + | Calcium | 8.6 | 8.5 - 10.5 | EXTERNAL | [...] | | | | | performed at [facility], [address] | | | | | | [facility], | | | | | | [place] [address] | | | | + + + + + + + + | Specimen | + + | Blood specimen | | (specimen) | + + + +---------+ + + | Performing | Address | City/State/Zipcode | Phone Number | | Organization | | | | + +---------+ + + | EXTERNAL LAB | | | | + +---------+ + + POC Glucose (10/14/2017 9:15 PM PDT) + + + + + + | Component | Value | Ref Range | Performed | Pathologist | | | | | At | Signature | + + + + + + | Glucose, | 249 (H)Comment: Testing | 65 - 99 mg/dL | EXTERNAL | | | Fingerstick | performed at [facility];[address] | | LAB | | | | [address];[place] | | | | | | [address] | | | | + + + + + + + + | Specimen | + + | | + + + +---------+ + + | Performing | Address | City/State/Zipcode | Phone Number | | Organization | | | | + +---------+ + + | EXTERNAL LAB | | | | + +---------+ + + PTT (10/14/2017 6:21 PM PDT) + + + + + + | Component | Value | Ref Range | Performed | Pathologist | | | | | At | Signature | + + + + + + | aPTT, | 36 (H)Comment: Testing | 23 - 32 seconds | EXTERNAL | | | Patient | performed at [facility];[address] | | LAB | | | | [address];[place] | | | | | | [address] | | | | + + + + + + + + | Specimen | + + | Blood specimen | | (specimen) | + + + +---------+ + + | Performing | Address | City/State/Zipcode | Phone Number | | Organization | | | | + +---------+ + + | EXTERNAL LAB | | | | + +---------+ + + CK-MB (10/14/2017 6:20 PM PDT) + + + + + [...] + + -+ | CK-MB Index | 7.0Comment: CK INDEX | | EXTERNAL | | [...] | + +---------+ + + Troponin I (10/14/2017 6:20 PM PDT) + + + + + [...] | | | | | | ACUTE OR Testing | | | | | | performed at [facility];[address] | | | | | | [facility];[place], [place] | | | | | | [address] | | | | + + + + + + + + | Specimen | + + | Blood specimen | | (specimen) | + + + +---------+ + + | Performing | Address | City/State/Zipcode | Phone Number | | Organization | | | | + +---------+ + + | EXTERNAL LAB | | | | + +---------+ + + CK Total (10/14/2017 6:20 PM PDT) + + + + + + | Component | Value | Ref Range | Performed | Pathologist | | | | | At | Signature | + + + + + + | CK, Total | 61Comment: Testing | 55 - 400 U/L | EXTERNAL | | | | performed at [facility];[address] | | LAB | | | | [facility];[place], [place] | | | | | | [address] | | | | + + + + + + + + | Specimen | + + | Blood specimen | | (specimen) | + + + +---------+ + + | Performing | Address | City/State/Zipcode | Phone Number | | Organization | | | | + +---------+ + + | EXTERNAL LAB | | | | + +---------+ + + POC Glucose (10/14/2017 5:36 PM PDT) + + + + + + | Component | Value | Ref Range | Performed | Pathologist | | | | | At | Signature | + + + + + + | Glucose, | 300 (H)Comment: Testing | 65 - 99 mg/dL | EXTERNAL | | | Fingerstick | performed at [facility];[address] | | LAB | | | | [address];[place], [place] | | | | | | [address] | | | | + + + + + + + + | Specimen | + + | | + + + +---------+ + + | Performing | Address | City/State/Zipcode | Phone Number | | Organization | | | | + +---------+ + + | EXTERNAL LAB | | | | + +---------+ + + VAS Lower Extremity Venous Bilateral (10/14/2017 4:39 PM PDT) + + | Specimen | + + | | + + + + + | Impressions | Performed At | + + + | No evidence of deep venous thrombosis | | + + + + + + | Narrative | Performed At | + + + | HISTORY: 61 -year-old male with swelling TECHNIQUE: Ultrasound | | | of the bilateral lower extremity deep venous systems. No prior | | | similar study available for comparison. This is a true duplex | | | examination with generation and interrogation of Doppler spectral | | | analysis, color flow and investigation waveforms. Where | | | investigated, these findings were unremarkable and supportive of the | | | conclusions of the attached report. FINDINGS: Normal | | | compression, color flow, respiratory variation and mechanical | | | augmentation at all interrogated points demonstrated.. Duplex | | | examination demonstrating normal color flow, Doppler spectral analysis | | | as expected for the venous structures here. Incidental findings | | | none | | + + + + + | Procedure Note | + + | Richard, Rad Conversion - 09/19/2018 1:06 AM PDT HISTORY: 61 -year-old male with | | swelling TECHNIQUE: Ultrasound of the bilateral lower extremity deep venous systems. No | | prior similar study available for comparison. This is a true duplex examination with | | generation and interrogation of Doppler spectral analysis, color flow and investigation | | waveforms. Where investigated, these findings were unremarkable and supportive of the | | conclusions of the attached report. FINDINGS: Normal compression, color flow, | | respiratory variation and mechanical augmentation at all interrogated points | | demonstrated.. Duplex examination demonstrating normal color flow, Doppler spectral | | analysis as expected for the venous structures here. Incidental findings none | | IMPRESSION: No evidence of deep venous thrombosis | | | |Incidental findings none | | | |IMPRESSION: | |No evidence of deep venous thrombosis | | | | | + + CK-MB (10/14/2017 11:47 AM PDT) + + + + + -+ | Component | Value | Ref Range | Performed | Pathologist | | | | | At | Signature | + + + + + -+ | CK-MB | 6.2 (H) | 0.5 - 3.6 ng/mL | EXTERNAL | | | | | | LAB | | + + + + + -+ | CK-MB Index | 8.1Comment: CK INDEX | | EXTERNAL | | [...] | + +---------+ + + Troponin I (10/14/2017 11:47 AM PDT) + + + + [...] | | | | | | ACUTE OR Testing | | | | | | performed at [facility];[address] | | | | | | [facility];[place], [place] | | | | | | [address] | | | | + + + + + + + + | Specimen | + + | Blood specimen | | (specimen) | + + + +---------+ + + | Performing | Address | City/State/Zipcode | Phone Number | | Organization | | | | + +---------+ + + | EXTERNAL LAB | | | | + +---------+ + + PTT (10/14/2017 11:47 AM PDT) + + + + + + | Component | Value | Ref Range | Performed | Pathologist | | | | | At | Signature | + + + + + + | aPTT, | 34 (H)Comment: Testing | 23 - 32 seconds | EXTERNAL | | | Patient | performed at [facility];[address] | | LAB | | | | [address];[place] | | | | | | [address] | | | | + + + + + + + + | Specimen | + + | Blood specimen | | (specimen) | + + + +---------+ + + | Performing | Address | City/State/Zipcode | Phone Number | | Organization | | | | + +---------+ + + | EXTERNAL LAB | | | | + +---------+ + + CK Total (10/14/2017 11:47 AM PDT) + + + + + + | Component | Value | Ref Range | Performed | Pathologist | | | | | At | Signature | + + + + + + | CK, Total | 77Comment: Testing | 55 - 400 U/L | EXTERNAL | | | | performed at [facility];[address] | | LAB | | | | [address];[place] | | | | | | [address] | | | | + + + + + + + + | Specimen | + + | Blood specimen | | (specimen) | + + + +---------+ + + | Performing | Address | City/State/Zipcode | Phone Number | | Organization | | | | + +---------+ + + | EXTERNAL LAB | | | | + +---------+ + + POC Glucose (10/14/2017 11:20 AM PDT) + + + + + [...] | LAB | | | | [address];[place], [place] | | | | | | [address] | | | | + + + + + + + + | Specimen | + + | | + + + +---------+ + + | Performing | Address | City/State/Zipcode | Phone Number | | Organization | | | | + +---------+ + + | EXTERNAL LAB | | | | + +---------+ + + ECHO Complete (10/14/2017 8:45 AM PDT) + + | Specimen | + + | | + + + + + | Impressions | Performed At | + + + | 1. Left ventricular systolic function is hyperdynamic with an | | | estimated EF of >70%. 2. There is moderate concentric left | | | ventricular hypertrophy. 3. There is a mild resting gradient of 15 mm | | | Hg noted in the LVOT (not evaluated with Valsalva) which likely | | | contributes to the measured mild gradient across the aortic valve. No | | | EDUARDO or significant resting LVOT obstruction, but a hypertrophic | | | cardiomyopathy cannot be excluded. A repeat limited echocardiogram | | | with LVOT gradient measurement with Valsalva is suggested (and if this | | | is abnormal, a cardiac MRI should be considered). 4. The right | | | ventricle is normal in size and function. The poor TR signal | | | prevents accurate estimation of pulmonary pressures. 5. No significant | | | valvular abnormalities are noted. | | + + + + + + | Narrative | Performed At | + + + | Patient Name: NORAH GR Date of : 1955 | | | Performing Physician: Vel Ingram | | | | | | INDICATIONS ABNORMAL EKG CONCLUSIONS | | | 1. Left ventricular systolic function is hyperdynamic with an | | | estimated EF of >70%. 2. There is moderate concentric left | | | ventricular hypertrophy. 3. There is a mild resting gradient of 15 mm | | | Hg noted in the LVOT (not evaluated with Valsalva) which likely | | | contributes to the measured mild gradient across the aortic valve. No | | | EDUARDO or significant resting LVOT obstruction, but a hypertrophic | | | cardiomyopathy cannot be excluded. A repeat limited echocardiogram | | | with LVOT gradient measurement with Valsalva is suggested (and if this | | | is abnormal, a cardiac MRI should be considered). 4. The right | | | ventricle is normal in size and function. The poor TR signal | | | prevents accurate estimation of pulmonary pressures. 5. No significant | | | valvular abnormalities are noted. FINDINGS -------- ECG rhythm: | | | Sinus rhythm. Study: A 2-dimensional transthoracic echocardiogram | | | with m-mode, spectral and color flow Doppler was perfomed. Study: | | | This was a technically adequate study. Left Ventricle: Left | | | ventricular systolic function is hyperdynamic with an estimated EF of | | | >70%. Left Ventricle: The left ventricle cavity size is normal. Left | | | Ventricle: There is moderate concentric left ventricular hypertrophy, | | | with wall thickness significantly increased from the measurements on | | | the prior study (IVS 1.0 cm, PW 1.1 cm). Indeterminate diastolic | | | function. There is a mild resting gradient of 15 mm Hg noted in | | | the LVOT (not evaluated with Valsalva) which likely contributes to the | | | measured mild gradient across the aortic valve. Left Ventricle: No | | | EDUARDO or significant resting LVOT obstruction. Right Ventricle: The | | | right ventricle is normal in size and function. Left Atrium: The left | | | atrium is mildly dilated, similar to the previous study. Right | | | Atrium: The right atrial size is normal. Aortic Valve: The aortic | | | valve was not well visualized. Aortic Valve: There is mild aortic | | | valve sclerosis without stenosis. Aortic Valve: The aortic valve is | | | mildly calcified. Aortic Valve: There is no evidence of aortic | | | regurgitation. Mitral Valve: There is trace mitral regurgitation. | | | Mitral Valve: No evidence of MVP. Mitral Valve: Mild thickening of | | | the anterior mitral valve leaflet. Tricuspid Valve: Trace tricuspid | | | regurgitation present. Tricuspid Valve: The poor TR signal prevents | | | accurate estimation of pulmonary pressures. Pulmonic Valve: The | | | pulmonic valve was not well visualized. Pericardium: There is no | | | pericardial effusion. Pericardium: No pleural effusion seen. | | | IVC/Hepatic Veins: The IVC is normal size (1.5-2.5cm) and collapses | | | >50% with sniff, consistent with central venous pressures of 3 mmHg. | | | Aorta: The aortic root and aortic arch are normal. Aorta: The | | | ascending aorta was measured at 3.9 cm, but this was done on a mild | | | angle, and the true measurement appears to be slightly less. Mass: No | | | mass visualized Thrombus: No clot visualized Thrombus: No | | | vegetation visualized. Septum: No ASD observed. Septum: No VSD | | | observed. MEASUREMENTS Ao asc: 3.87 cm Ao | | | sinus: 3.86 cm IVC: 2.16 cm EDV(Teich): 98.55 ml IVSd: | | | 1.38 cm LVIDd: 4.62 cm LVPWd: 1.50 cm LVOT Diam: 2.18 cm | | | %FS: 32.93 % EF(Teich): 61.47 % ESV(Teich): 37.96 ml IVSs: | | | 1.83 cm LVIDs: 3.10 cm LVPWs: 1.82 cm SV(Teich): 60.59 | | | ml RA Major: 4.70 cm RVIDd: 3.66 cm LVEF MOD A2C: 51.69 % | | | SV MOD A2C: 38.84 ml LVEF MOD A4C: 79.10 % SV MOD A4C: | | | 83.44 ml EF Biplane: 68.27 % LVEDV MOD BP: 89.84 ml LVESV MOD | | | BP: 28.50 ml LVEDV MOD A2C: 75.14 ml LVLd A2C: 8.69 cm | | | LVEDV MOD A4C: 105.48 ml LVLd A4C: 8.99 cm LVESV MOD A2C: | | | 36.29 ml LVLs A2C: 6.82 cm LVESV MOD A4C: 22.04 ml LVLs A4C: | | | 6.96 cm LAESV(A-L): 78.41 ml LAESV Index (A-L): 36.64 ml/m2 | | | LAAs A2C: 23.48 cm2 LAESV A-L A2C: 71.59 ml LALs A2C: | | | 6.54 cm LAAs A4C: 22.52 cm2 LAESV A-L A4C: 75.20 ml LALs A4C: | | | 5.72 cm TAPSE: 2.33 cm HR: 62.00 BPM AV maxP.57 | | | mmHg AV meanP.25 mmHg AV Vmax: 2.37 m/s AV Vmean: | | | 1.75 m/s AV VTI: 48.49 cm VANE Vmax: 3.09 cm2 VANE (VTI): | | | 3.12 cm2 AVAI Vmax: 0.00 cm2/m2 AVAI (VTI): 0.00 cm2/m2 LVCI | | | Dopp: 4.27 l/minm2 LVCO Dopp: 9.14 l/min HR: 60.40 BPM | | | LVOT maxP.48 mmHg LVOT meanP.68 mmHg LVSI Dopp: | | | 70.75 ml/m2 LVSV Dopp: 151.40 ml LVOT Vmax: 1.96 m/s LVOT | | | Vmean: 1.39 m/s LVOT VTI: 40.54 cm MCO: 379.63 ms MV A | | | Mick: 0.88 m/s MV DecT: 283.92 ms MV E Mick: 0.78 m/s MV E/A | | | Ratio: 0.88 MV PHT: 82.00 ms MVA By PHT: 2.68 cm2 MV A | | | Dur: 125.59 ms Septal e': 0.05 m/s Septal E/e': 13.68 | | | Lateral e': 0.06 m/s Lateral E/e': 11.89 HR: 54.73 BPM PV | | | maxP.50 mmHg PV meanP.68 mmHg PV Vmax: 0.93 m/s PV | | | Vmean: 0.60 m/s PV VTI: 19.67 cm RV S': 0.18 m/s TV A | | | Mick: 0.47 m/s TV Dec [place]: 2.56 m/s2 TV Dec Time: 234.96 | | | ms TV E Mick: 0.60 m/s TV E/A Ratio: 1.27 Diesel Engine Specialist: JEANCARLOS | | | Authenticated by: Vel Ingram Report Date/Time: 10-14-2017 15:29:18 | | | | | + + + + + | Procedure Note | + + | Joaquin Ramos Conversion - 09/19/2018 1:06 AM PDT Patient Name: Sim GR of | | : 1955 Performing Physician: Vel Lane | | [facility]hr INDICATIONS | | -ABNORMAL EKG CONCLUSIONS 1. Left ventricular systolic function is | | hyperdynamic with an estimated EF of >70%.2. There is moderate concentric left | | ventricular hypertrophy.3. There is a mild resting gradient of 15 mm Hg noted in the | | LVOT (not evaluated with Valsalva) which likely contributes to the measured mild | | gradient across the aortic valve. No EDUARDO or significant resting LVOT obstruction, but a | | hypertrophic cardiomyopathy cannot be excluded. A repeat limited echocardiogram with | | LVOT gradient measurement with Valsalva is suggested (and if this is abnormal, a cardiac | | MRI should be considered).4. The right ventricle is normal in size and function. The | | poor TR signal prevents accurate estimation of pulmonary pressures. 5. No significant | | valvular abnormalities are noted. FINDINGS--------ECG rhythm: Sinus rhythm.Study: A | | 2-dimensional transthoracic echocardiogram with m-mode, spectral and color flow Doppler | | was perfomed.Study: This was a technically adequate study.Left Ventricle: Left | | ventricular systolic function is hyperdynamic with an estimated EF of >70%.Left | | Ventricle: The left ventricle cavity size is normal.Left Ventricle: There is moderate | | concentric left ventricular hypertrophy, with wall thickness significantly increased | | from the measurements on the prior study (IVS 1.0 cm, PW 1.1 cm). Indeterminate | | diastolic function. There is a mild resting gradient of 15 mm Hg noted in the LVOT (not | | evaluated with Valsalva) which likely contributes to the measured mild gradient across | | the aortic valve.Left Ventricle: No EDUARDO or significant resting LVOT obstruction.Right | | Ventricle: The right ventricle is normal in size and function.Left Atrium: The left | | atrium is mildly dilated, similar to the previous study.Right Atrium: The right atrial | | size is normal.Aortic Valve: The aortic valve was not well visualized.Aortic Valve: | | There is mild aortic valve sclerosis without stenosis.Aortic Valve: The aortic valve is | | mildly calcified.Aortic Valve: There is no evidence of aortic regurgitation.Mitral | | Valve: There is trace mitral regurgitation.Mitral Valve: No evidence of MVP.Mitral | | Valve: Mild thickening of the anterior mitral valve leaflet.Tricuspid Valve: Trace | | tricuspid regurgitation present.Tricuspid Valve: The poor TR signal prevents accurate | | estimation of pulmonary pressures.Pulmonic Valve: The pulmonic valve was not well | | visualized.Pericardium: There is no pericardial effusion.Pericardium: No pleural | | effusion seen.IVC/Hepatic Veins: The IVC is normal size (1.5-2.5cm) and collapses >50% | | with sniff, consistent with central venous pressures of 3 mmHg.Aorta: The aortic root | | and aortic arch are normal.Aorta: The ascending aorta was measured at 3.9 cm, but this | | was done on a mild angle, and the true measurement appears to be slightly less.Mass: No | | mass visualizedThrombus: No clot visualizedThrombus: No vegetation visualized.Septum: No | | ASD observed.Septum: No VSD observed. MEASUREMENTS Ao asc: 3.87 cmAo | | sinus: 3.86 cmIVC: 2.16 cmEDV(Teich): 98.55 mlIVSd: 1.38 cmLVIDd: 4.62 | | cmLVPWd: 1.50 cmLVOT Diam: 2.18 cm%FS: 32.93 %EF(Teich): 61.47 %ESV(Teich): | | 37.96 mlIVSs: 1.83 cmLVIDs: 3.10 cmLVPWs: 1.82 cmSV(Teich): 60.59 mlRA Major: | | 4.70 cmRVIDd: 3.66 cmLVEF MOD A2C: 51.69 %SV MOD A2C: 38.84 mlLVEF MOD A4C: | | 79.10 %SV MOD A4C: 83.44 mlEF Biplane: 68.27 %LVEDV MOD BP: 89.84 mlLVESV MOD BP: | | 28.50 mlLVEDV MOD A2C: 75.14 mlLVLd A2C: 8.69 cmLVEDV MOD A4C: 105.48 mlLVLd | | A4C: 8.99 cmLVESV MOD A2C: 36.29 mlLVLs A2C: 6.82 cmLVESV MOD A4C: 22.04 mlLVLs | | A4C: 6.96 cmLAESV(A-L): 78.41 mlLAESV Index (A-L): 36.64 ml/m2LAAs A2C: 23.48 | | [id number] A-L A2C: 71.59 mlLALs A2C: 6.54 cmLAAs A4C: 22.52 [id number] A-L A4C: | | 75.20 mlLALs A4C: 5.72 cmTAPSE: 2.33 cmHR: 62.00 BPMAV maxP.57 mmHgAV | | meanP.25 mmHgAV Vmax: 2.37 m/Jason Vmean: 1.75 m/Jason VTI: 48.49 cmAVA Vmax: | | 3.09 cm2AVA (VTI): 3.12 [id number] Vmax: 0.00 cm2/m2AVAI (VTI): 0.00 cm2/m2LVCI | | Dopp: 4.27 l/[id number] Dopp: 9.14 l/minHR: 60.40 BPMLVOT maxP.48 mmHgLVOT | | meanP.68 mmHgLVSI Dopp: 70.75 ml/m2LVSV Dopp: 151.40 mlLVOT Vmax: 1.96 | | m/sLVOT Vmean: 1.39 m/sLVOT VTI: 40.54 cmMCO: 379.63 msMV A Mick: 0.88 m/sMV | | DecT: 283.92 msMV E Mick: 0.78 m/sMV E/A Ratio: 0.88MV PHT: 82.00 msMVA By PHT: | | 2.68 cm2MV A Dur: 125.59 msSeptal e': 0.05 m/sSeptal E/e': 13.68Lateral e': | | 0.06 m/sLateral E/e': 11.89HR: 54.73 BPMPV maxP.50 mmHgPV meanP.68 | | mmHgPV Vmax: 0.93 m/sPV Vmean: 0.60 m/sPV VTI: 19.67 cmRV S': 0.18 m/sTV A Mick: | | 0.47 m/sTV Dec [place]: 2.56 m/s2TV Dec Time: 234.96 msTV E Mick: 0.60 m/sTV E/A | | Ratio: 1.27 Diesel Engine Specialist: JEANCARLOSAuthenticated by: Vel Walker Date/Time: 10-14-2017 | | 15:29:18 IMPRESSION: 1. Left ventricular systolic function is hyperdynamic with an | | estimated EF of >70%.2. There is moderate concentric left ventricular hypertrophy.3. | | There is a mild resting gradient of 15 mm Hg noted in the LVOT (not evaluated with | | Valsalva) which likely contributes to the measured mild gradient across the aortic | | valve. No EDUARDO or significant resting LVOT obstruction, but a hypertrophic cardiomyopathy | | cannot be excluded. A repeat limited echocardiogram with LVOT gradient measurement | | with Valsalva is suggested (and if this is abnormal, a cardiac MRI should be | | considered).4. The right ventricle is normal in size and function. The poor TR signal | | prevents accurate estimation of pulmonary pressures. 5. No significant valvular | | abnormalities are noted. | |LVIDs: 3.10 cm | |LVPWs: 1.82 cm | |SV(Teich): 60.59 ml | |RA Major: 4.70 cm | |RVIDd: 3.66 cm | |LVEF MOD A2C: 51.69 % | |SV MOD A2C: 38.84 ml | |LVEF MOD A4C: 79.10 % | |SV MOD A4C: 83.44 ml | |EF Biplane: 68.27 % | |LVEDV MOD BP: 89.84 ml | |LVESV MOD BP: 28.50 ml | |LVEDV MOD A2C: 75.14 ml | |LVLd A2C: 8.69 cm | |LVEDV MOD A4C: 105.48 ml | |LVLd A4C: 8.99 cm | |LVESV MOD A2C: 36.29 ml | |LVLs A2C: 6.82 cm | |LVESV MOD A4C: 22.04 ml | |LVLs A4C: 6.96 cm | |LAESV(A-L): 78.41 ml | |LAESV Index (A-L): 36.64 ml/m2 | |LAAs A2C: 23.48 cm2 | |LAESV A-L A2C: 71.59 ml | |LALs A2C: 6.54 cm | |LAAs A4C: 22.52 cm2 | |LAESV A-L A4C: 75.20 ml | |LALs A4C: 5.72 cm | |TAPSE: 2.33 cm | |HR: 62.00 BPM | |AV maxP.57 mmHg | |AV meanP.25 mmHg | |AV Vmax: 2.37 m/s | |AV Vmean: 1.75 m/s | |AV VTI: 48.49 cm | |VANE Vmax: 3.09 cm2 | |VANE (VTI): 3.12 cm2 | |AVAI Vmax: 0.00 cm2/m2 | |AVAI (VTI): 0.00 cm2/m2 | |LVCI Dopp: 4.27 l/minm2 | |LVCO Dopp: 9.14 l/min | |HR: 60.40 BPM | |LVOT maxP.48 mmHg | |LVOT meanP.68 mmHg | |LVSI Dopp: 70.75 ml/m2 | |LVSV Dopp: 151.40 ml | |LVOT Vmax: 1.96 m/s | |LVOT Vmean: 1.39 m/s | |LVOT VTI: 40.54 cm | |MCO: 379.63 ms | |MV A Mick: 0.88 m/s | |MV DecT: 283.92 ms | |MV E Mick: 0.78 m/s | |MV E/A Ratio: 0.88 | |MV PHT: 82.00 ms | |MVA By PHT: 2.68 cm2 | |MV A Dur: 125.59 ms | |Septal e': 0.05 m/s | |Septal E/e': 13.68 | |Lateral e': 0.06 m/s | |Lateral E/e': 11.89 | |HR: 54.73 BPM | |PV maxP.50 mmHg | |PV meanP.68 mmHg | |PV Vmax: 0.93 m/s | |PV Vmean: 0.60 m/s | |PV VTI: 19.67 cm | |RV S': 0.18 m/s | |TV A Mick: 0.47 m/s | |TV Dec [place]: 2.56 m/s2 | |TV Dec Time: 234.96 ms | |TV E Mick: 0.60 m/s | |TV E/A Ratio: 1.27 | | | |Diesel Engine Specialist: MW | |Authenticated by: Vel Ingram | |Report Date/Time: 10-14-2017 15:29:18 | | | |IMPRESSION: | |1. Left ventricular systolic function is hyperdynamic with an estimated EF of >70%. | |2. There is moderate concentric left ventricular hypertrophy. | |3. There is a mild resting gradient of 15 mm Hg noted in the LVOT (not evaluated with Valsa lva) which likely contributes to the measured mild gradient across the aortic valve. No EDUARDO or significant resting LVOT obstruction, but a hypertrophic | |cardiomyopathy cannot be excluded. A repeat limited echocardiogram with LVOT gradient billie urement with Valsalva is suggested (and if this is abnormal, a cardiac MRI should be conside red). | |4. The right ventricle is normal in size and function. The poor TR signal prevents accurat e estimation of pulmonary pressures. 5. No significant valvular abnormalities are noted. | + + CK-MB (10/14/2017 6:11 AM PDT) + + + + + -+ | Component | Value | Ref Range | Performed | Pathologist | | | | | At | Signature | + + + + + -+ | CK-MB | 6.6 (H) | 0.5 - 3.6 ng/mL | EXTERNAL | | | | | | LAB | | + + + + + -+ | CK-MB Index | 8.4Comment: CK INDEX | | EXTERNAL | | [...] | + +---------+ + + Troponin I (10/14/2017 6:11 AM PDT) + + + + + + | Component | Value | Ref Range | Performed | Pathologist | | | | | At | Signature | + + + + + + | Troponin I, | 0.03Comment: 0.00 to | 0.00 - 0.10 | [...] | | | | | | ACUTE OR Testing | | | | | | performed at [facility] | | | | | | [facility];[place], [place] | | | | | | [address] | | | | + + + + + + + + | Specimen | + + | Blood specimen | | (specimen) | + + + +---------+ + + | Performing | Address | City/State/Zipcode | Phone Number | | Organization | | | | + +---------+ + + | EXTERNAL LAB | | | | + +---------+ + + PTT (10/14/2017 6:11 AM PDT) + + + + + + | Component | Value | Ref Range | Performed | Pathologist | | | | | At | Signature | + + + + + + | aPTT, | 49 (H)Comment: Testing | 23 - 32 seconds | EXTERNAL | | | Patient | performed at [facility];[address] | | LAB | | | | [address];[place] | | | | | | [address] | | | | + + + + + + + + | Specimen | + + | Blood specimen | | (specimen) | + + + +---------+ + + | Performing | Address | City/State/Zipcode | Phone Number | | Organization | | | | + +---------+ + + | EXTERNAL LAB | | | | + +---------+ + + CK Total (10/14/2017 6:11 AM PDT) + + + + + + | Component | Value | Ref Range | Performed | Pathologist | | | | | At | Signature | + + + + + + | CK, Total | 79Comment: Testing | 55 - 400 U/L | EXTERNAL | | | | performed at [facility];[address] | | LAB | | | | [facility];[place] | | | | | | [address] | | | | + + + + + + + + | Specimen | + + | Blood specimen | | (specimen) | + + + +---------+ + + | Performing | Address | City/State/Zipcode | Phone Number | | Organization | | | | + +---------+ + + | EXTERNAL LAB | | | | + +---------+ + + Protime INR (10/14/2017 6:10 AM PDT) + + + + + [...] at [facility];[address] | | | | | | [facility];[place], [place] | | | | | | [address] | | | | + + + [...] + +---------+ + + External Lab: CBC (10/14/2017 6:10 AM PDT) + + + + + + | Component | Value | Ref Range | Performed | Pathologist | | | | | At | Signature | + + + + + + | WBC | 11.19 (H) | 3.80 - 11.00 | EXTERNAL | | | | | K/uL | LAB | | + + + + + + | Non- | 4.24 | 4.20 - 5.70 | EXTERNAL | | | Red Blood | | M/uL | LAB | | | Cells | | | | | | Counted | | | | | + + + + + + | Hemoglobin | 11.9 (L) | 13.2 - 17.0 | EXTERNAL | | | | | g/dL | LAB | | + + + + + + | Hematocrit, | 34.5 (L) | 39.0 - 50.0 % | EXTERNAL | | | POC | | | LAB | | + + + + + + | MCV | 81.4 | 80.0 - 100.0 fl | EXTERNAL | | | | | | LAB | | + + + + + + | MCH | 28.2 | 27.0 - 34.0 pg | EXTERNAL | | | | | | LAB | | + + + + + + | MCHC | 34.6 | 32.0 - 35.5 | EXTERNAL | | | | | g/dL | LAB | | + + + + + + | RDW-CV | 44.2 | 37 - 53 fl | EXTERNAL | | | | | | LAB | | + + + + + + | Platelet | 276 | 150 - 400 K/uL | EXTERNAL | | | Count | | | LAB | | | Plasma | | | | | + + + + + + | MPV | 7.9 | fl | EXTERNAL | | | | | | LAB | | + + + + + + | Differentia | AUTOMATED | | EXTERNAL | | | l Type | | | LAB | | + + + + + + | % Segmented | 52.73 | % | EXTERNAL | | | | | | LAB | | | Neutrophils | | | | | + + + + + + | % | 35.04 | % | EXTERNAL | | | Lymphocytes | | | LAB | | + + + + + + | % Monocytes | 10.25 | % | EXTERNAL | | | | | | LAB | | + + + + + + | % | 1.39 | % | EXTERNAL | | | Eosinophils | | | LAB | | + + + + + + | % Basophils | 0.59 | % | EXTERNAL | | | | | | LAB | | + + + + + + | Absolute | 5.90 | 1.90 - 7.40 | EXTERNAL | | | Segmented | | K/uL | LAB | | | Neutrophils | | | | | + + + + + + | Absolute | 3.92 (H) | 1.00 - 3.90 | EXTERNAL | | | Lymphocytes | | K/uL | LAB | | + + + + + + | Absolute | 1.15 (H) | 0.00 - 0.80 | EXTERNAL | | | Monocytes | | K/uL | LAB | | + + + + + + | Absolute | 0.16 | 0.00 - 0.50 | EXTERNAL | | | Eosinophils | | K/uL | LAB | | + + + + + + | Absolute | 0.07Comment: Testing | 0.00 - 0.10 | EXTERNAL | | | Basophils | performed at [facility], [address] | K/uL | LAB | | | | [address], | | | | | | [place] [address] | | | | + + + + + + + + | Specimen | + + | Blood specimen | | (specimen) | + + + +---------+ + + | Performing | Address | City/State/Zipcode | Phone Number | | Organization | | | | + +---------+ + + | EXTERNAL LAB | | | | + +---------+ + + Phosphorus (10/14/2017 6:10 AM PDT) + + + + + + | Component | Value | Ref Range | Performed | Pathologist | | | | | At | Signature | + + + + + + | PHOSPHORUS | 2.9Comment: Testing | 2.3 - 4.8 mg/dL | EXTERNAL | | | | performed at [facility], [address] | | LAB | | | | [address], | | | | | | [place] [address] | | | | + + + + + + + + | Specimen | + + | Blood specimen | | (specimen) | + + + +---------+ + + | Performing | Address | City/State/Zipcode | Phone Number | | Organization | | | | + +---------+ + + | EXTERNAL LAB | | | | + +---------+ + + Magnesium (10/14/2017 6:10 AM PDT) + + + + + [...] | | | | | [place] [address] | | | | + + + [...] + +---------+ + + Comprehensive Metabolic Panel (10/14/2017 6:10 AM PDT) + + + + + + | Component | Value | Ref Range | Performed | Pathologist | | | | | At | Signature | + + + + + + | Na | 137 | 135 - 145 | EXTERNAL | | | | | mmol/L | LAB | | + + + + + + | K | 3.8 | 3.5 - 4.9 | EXTERNAL | | | | | mmol/L | LAB | | + + + + + + | Cl | 100 | 99 - 109 mmol/L | EXTERNAL | | | | | | LAB | | + + + + + + | CO2 | 26 | 23 - 32 mmol/L | EXTERNAL | | | | | | LAB | | + + + + + + | Anion Gap | 15 | 5 - 20 mmol/L | EXTERNAL | | | | | | LAB | | + + + + + + | Glucose, | 234 (H) | 65 - 99 mg/dL | EXTERNAL | | | Fasting | | | LAB | | + + + + + + | BUN | 18 | 8 - 25 mg/dL | EXTERNAL | | | | | | LAB | | + + + + + + | Creatinine | 1.1 | 0.70 - 1.30 | EXTERNAL | | | | | mg/dL | LAB | | + + + + + + | BUN/Creatin | 16 | | EXTERNAL | | | ine Ratio | | | LAB | | + + + + + + | Calcium | 8.5 | 8.5 - 10.5 | EXTERNAL | | | | | mg/dL | LAB | | + + + + + + | Protein, | 6.1 (L) | 6.3 - 8.2 g/dL | EXTERNAL | | | Total | | | LAB | | + + + + + + | Albumin | 2.6 (L) | 3.3 - 4.8 g/dL | EXTERNAL | | | | | | LAB | | + + + + + + | Globulin | 3.5 | 1.3 - 4.9 g/dL | EXTERNAL | | | | | | LAB | | + + + + + + | A/G Ratio | 0.7 (L) | 1.0 - 2.4 | EXTERNAL | | | | | | LAB | | + + + + + + | Bilirubin | 0.5 | 0.1 - 1.5 mg/dL | EXTERNAL | | | Total | | | LAB | | + + + + + + | ALP, | 82 | 35 - 115 U/L | EXTERNAL | | | External | | | LAB | | + + + + + + | AST | 19 | 10 - 45 U/L | EXTERNAL | | | | | | LAB | | + + + + + + | ALT | 16 | 10 - 65 U/L | EXTERNAL [...] | | | | | | MDRD IDOK traceable | | | | | | equation.Testing | | | | | | performed at [facility], [address] | | | | | | [facility], | | | | | | [place] [address] | | | | + + + + + + + + | Specimen | + + | Blood specimen | | (specimen) | + + + +---------+ + + | Performing | Address | City/State/Zipcode | Phone Number | | Organization | | | | + +---------+ + + | EXTERNAL LAB | | | | + +---------+ + + POC Glucose (10/14/2017 5:41 AM PDT) + + + + + + | Component | Value | Ref Range | Performed | Pathologist | | | | | At | Signature | + + + + + + | Glucose, | 229 (H)Comment: Testing | 65 - 99 mg/dL | EXTERNAL | | | Fingerstick | performed at [facility];[address] | | LAB | | | | [address];[place] | | | | | | [address] | | | | + + + + + + + + | Specimen | + + | | + + + +---------+ + + | Performing | Address | City/State/Zipcode | Phone Number | | Organization | | | | + +---------+ + + | EXTERNAL LAB | | | | + +---------+ + + VENOUS THROMBOSIS, NON COUMADIN, REFLEX (10/14/2017 1:35 AM PDT) + + + + + ----+ | Component | Value | Ref Range | Performed | Pathologi st | | | | | At | Signature | + + + + + ----+ | Homocystein | <3.0 (L)Comment: | umol/L | EXTERNAL | | | e-Norm | Homocysteine levels in | | LAB | | | | patients >60 years | | | | | | increase | | | | | | 1-2umol/L.Reference | | | | | | Range:5.0 - 15.0 | | | | | |5.0 - 15.0 | | | | | | | | | | + + + + + ----+ | Factor VIII | 183 (H)Comment: FVIII | % | EXTERNAL | | | Activity | activity can increase in | | LAB | | | | a variety of | | | | | | clinicalsituations | | | | | | including normal | | | | | | , in samples | | | | | | drawn frompatients | | | | | | (particularly children) | | | | | | who are visibly stressed | | | | | | atthe time of | | | | | | phlebotomy, as acute | | | | | | phase reactants, or | | | | | | inresponse to certain | | | | | | drug therapies such as | | | | | | DDAVP.Persistently | | | | | | elevated FVIII activity | | | | | | is a risk factor | | | | | | forvenous thrombosis as | | | | | | well as recurrence of | | | | | | venousthrombosis. Risk | | | | | | is graded and increases | | | | | | with the degree | | | | | | ofelevation. Although | | | | | | elevated FVIII activity | | | | | | has beenidentified to | | | | | | cluster within families, | | | | | | a genetic basis forthe | | | | | | elevation has not yet | | | | | | been elucidated (Bryon J | | | | | | Haematol.2012; | | | | | | [phone]).Reference | | | | | | Range:57 - 163 | | | | + + + + + ----+ | Antithrombi | 110Comment: Direct oral | % | EXTERNAL | | | n III | 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 such as | | LAB | | | Activity | rivaroxaban, apixaban | | | | | | andedoxaban will lead to | | | | | | spuriously elevated | | | | | | antithrombinactivity | | | | | | levels possibly masking | | | | | | a deficiency.Reference | | | | | | Range:7 months and | | | | | | older: 75 - 135 | | | | + + + + + ----+ | Protein C | 152Comment: Reference | % | EXTERNAL | | | activity | Range:17 years and | | LAB | | | | older: 73 - 180 | | | | | |Reference Range: | | | | | |17 years and older: 73 - 180 | | | | | | | | | | + + + + + ----+ | Protein S | 102Comment: Reference | % | EXTERNAL | | | Antigen, | Range:7 months and | | LAB | | | Free | older: 57 - 157This test | | | | | | was developed and its | | | | | | performance | | | | | | characteristicsdetermine | | | | | | d by [facility]. It has not | | | | | | been cleared or | | | | | | approvedby the Food and | | | | | | Drug Administration. | | | | + + + + + ----+ | aPTT, | >121.9 (H)Comment: | SEC | EXTERNAL | | | Patient | <<ALERT VALUE>>Please | | LAB | | | | notify physician! This | | | | | | result has | | | | | | beenelectronically | | | | | | transmitted and client | | | | | | receipt will | | | | | | beconfirmed. [id number] | | | | | | [id number] JLHThe aPTT is | | | | | | 26.0 seconds following | | | | | | heparin | | | | | | neutralization.This test | | | | | | has not been validated | | | | | | for | | | | | | monitoringunfractionated | | | | | | heparin therapy. | | | | | | aPTT-based | | | | | | therapeuticranges for | | | | | | unfractionated heparin | | | | | | therapy have not | | | | | | beenestablished. | | | | | | Consider ordering | | | | | | Heparin | | | | | | anti-Xa(unfractionated). | | | | | | Reference Range:18 years | | | | | | and older: 22.9 - 30.2 | | | | + + + + + ----+ | PT 1:1 [facility] | NIY | sec | EXTERNAL | | | | Comment: | | LAB | | | | | | | | | | Testing Not Indicated | | | | | | Not indicated | | | | | | | | | | + + + + + ----+ | APTT 1:1 | NIY | sec | EXTERNAL | | | Saline | Comment: | | LAB | | | | | | | | | | Testing Not Indicated | | | | | | Not indicated | | | | | | | | | | + + + + + ----+ | Interpretat | (See Below)Comment: The | | EXTERNAL | | | ion | following | | LAB | | | | interpretation for the | | | | | | presence of a | | | | | | lupusanticoagulant (LA) | | | | | | is not valid for | | | | | | patients | | | | | | receivingheparin. | | | | | | Despite neutralization | | | | | | of heparin in | | | | | | thelaboratory, heparin | | | | | | may cause false positive | | | | | | lupusanticoagulant (LA) | | | | | | results, specifically | | | | | | affecting thehexagonal | | | | | | phospholipid | | | | | | neutralization and PNP | | | | | | assays, butwill not | | | | | | interfere with | | | | | | CARROLL-based antibody | | | | | | testing.A lupus | | | | | | anticoagulant is | | | | | | detected. This | | | | | | interpretation ismade | | | | | | based on ISTH guidelines | | | | | | for LA diagnosis (J | | | | | | ThrombHaemost. 2009; 7: | | | | | | 1736-40). As only | | | | | | persistent LA | | | | | | meetslaboratory | | | | | | diagnostic criteria for | | | | | | antiphospholipidsyndrome | | | | | | , repeat testing in 12 | | | | | | or more weeks | | | | | | isrecommended, ideally | | | | | | in the absence of | | | | | | anticoagulanttherapy.All | | | | | | CARROLL-based | | | | | | antiphospholipid | | | | | | antibodies evaluated | | | | | | arenormal. Please | | | | | | contact [facility] | | | | | | Coagulation if | | | | | | furtherclarification is | | | | | | needed. | | | | + + + + + ----+ | Activated | 2.1 (L)Comment: A low | ratio | EXTERNAL | | | Protein C | activated protein C | | LAB | | | Resistance | resistance (APCR) is a | | | | | | risk factorfor venous | | | | | | thrombosis and is a | | | | | | screen for the Factor | | | | | | VLeiden mutation. | | | | | | Consider molecular | | | | | | analysis for | | | | | | thismutation. Other | | | | | | causes for abnormal APCR | | | | | | are uncommon andinclude | | | | | | other rare mutations in | | | | | | the Factor V | | | | | | molecule, and | | | | | | certain drug therapies, | | | | | | including | | | | | | thalidomidetherapy, | | | | | | presence of a lupus | | | | | | anticoagulant, increased | | | | | | FactorVIII levels, and | | | | | | autoantibodies against | | | | | | activated protein | | | | | | C.Reference Range:2.2 - | | | | | | 3.5 | | | | + + + + + ----+ | Dilute | 51.8 (H) | sec | EXTERNAL | | | Oumar | Comment: | | LAB | | | Viper Venom | | | | | | Time | Reference Range: | | | | | | <= 47.0 | | | | | | | | | | + + + + + ----+ | Dilute | 47.2 | sec | EXTERNAL | | | Oumar | | | LAB | | | Viper Venom | | | | | | Time | | | | | | Confirmatio | | | | | | n | | | | | + + + + + ----+ | dRVVT, | 1.0 | ratio | EXTERNAL | | | Confirm | Comment: | | LAB | | | Ratio | | | | | | | Reference Range: | | | | | | 0.8 - 1.2 | | | | | | | | | | + + + + + ----+ | Hex Phosph | 16 (H)Comment: Assay | sec | EXTERNAL | | | Test | performed following | | LAB | | | | heparin | | | | | | neutralization.Verified | | | | | | by repeat analysis.This | | | | | | value is POSITIVE.This | | | | | | is a qualitative assay | | | | | | and is therefore | | | | | | reported aspositive for | | | | | | lupus anticoagulant or | | | | | | negative. Testing | | | | | | whilethe patient is on | | | | | | anticoagulant therapy, | | | | | | including heparinor | | | | | | dabigatran, may cause a | | | | | | false positive result. | | | | | | Thequantitative value is | | | | | | provided as an aid in | | | | | | diagnosis.Reference | | | | | | Range:0 - 11 | | | | + + + + + ----+ | Cardiolipin | <10Comment: Reference | GPL | EXTERNAL | | | AB IgG | Range:Negative: | | LAB | | | | <15Indeterminate: 15 - | | | | | | 20Low to medium | | | | | | positive: >20 - 80High | | | | | | positive: >80 | | | | | |Low to medium positive: >20 - 80 | | | | | |High positive: >80 | | | | | | | | | | + + + + + ----+ | Cardiolipin | <10Comment: Reference | MPL | EXTERNAL | | | AB IgM | Range:Negative: | | LAB | | | | <13Indeterminate: 13 - | | | | | | 20Low to medium | | | | | | positive: >20 - 80High | | | | | | positive: >80 | | | | | |Low to medium positive: >20 - 80 | | | | | |High positive: >80 | | | | | | | | | | + + + + + ----+ | BETA 2 | <10Comment: The | [facility] | EXTERNAL | | | GLYCO 1 IGG | reference interval | | LAB | | | | reflects a 3SD or 99th | | | | | | percentileinterval, | | | | | | which is thought to | | | | | | represent a | | | | | | potentiallyclinically | | | | | | significant result in | | | | | | accordance with | | | | | | theInternational | | | | | | Consensus Statement on | | | | | | the | | | | | | classificationcriteria | | | | | | for definitive | | | | | | antiphospholipid | | | | | | syndrome (APS). JThromb | | | | | | [id number].Refer | | | | | | ence Range:Negative: <21 | | | | | | | | | | + + + + + ----+ | BETA 2 | <10Comment: The | [facility] | EXTERNAL | | | GLYCO 1 IGM | reference interval | | LAB | | | | reflects a 3SD or 99th | | | | | | percentileinterval, | | | | | | which is thought to | | | | | | represent a | | | | | | potentiallyclinically | | | | | | significant result in | | | | | | accordance with | | | | | | theInternational | | | | | | Consensus Statement on | | | | | | the | | | | | | classificationcriteria | | | | | | for definitive | | | | | | antiphospholipid | | | | | | syndrome (APS). JThromb | | | | | | [id number].Refer | | | | | | ence Range:Negative: <33 | | | | | | | | | | + + + + + ----+ | Beta-2 | 10Comment: The | [facility] | EXTERNAL | | | Glyco 1 IgA | reference interval | | LAB | | | | reflects a 3SD or 99th | | | | | | percentileinterval.Refer | | | | | | ence Range:Negative: <26 | | | | | | | | | | | |Negative: <26 | | | | | | | | | | + + + + + ----+ | [place] [id number], | (See Below)Comment: G-G | | EXTERNAL | | | Result | (Normal-Normal)No | | LAB | | | | prothrombin [id number] | | | | | | mutation present. | | | | | |No prothrombin [id number] mutation present. | | | | | | | | | | + + + + + ----+ | PT, Mixing | (See Below)Comment: | | EXTERNAL | | | Interp | While the patient does | | LAB | | | | not possess this risk | | | | | | factor, otherthrombotic | | | | | | risk factors may be | | | | | | detected through | | | | | | systematicclinical | | | | | | laboratory analysis. | | | | + + + + + ----+ | Methodology | (See Below)Comment: | | EXTERNAL | | | : | Patient DNA was | | LAB | | | | evaluated for the factor | | | | | | II gene mutationat | | | | | | nucleotide [id number] using | | | | | | PCR amplification | | | | | | followed byrestriction | | | | | | analysis and gel | | | | | | electrophoresis. | | | | + + + + + ----+ | Comments: | (See Below)Comment: | | EXTERNAL | | | | Simultaneous Risks: If a | | LAB | | | | patient possesses two | | | | | | or morecongenital or | | | | | | acquired thrombophilic | | | | | | risk factors, the riskof | | | | | | thrombosis may rise to | | | | | | more than the sum of the | | | | | | riskratios for the | | | | | | individual risk factors. | | | | | | For instance, | | | | | | acombination of the | | | | | | prothrombin [id number] | | | | | | mutation and thefactor V | | | | | | Leiden mutation may | | | | | | confer an increase | | | | | | inthrombotic risk in the | | | | | | range of 20-30 | | | | | | fold.Recommendations for | | | | | | Genetic Counseling: The | | | | | | prothrombingene | | | | | | mutation is an inherited | | | | | | characteristic. If | | | | | | themutation is present, | | | | | | we recommend that the | | | | | | patient andtheir family | | | | | | consider genetic | | | | | | counseling to | | | | | | obtainadditional | | | | | | information on | | | | | | inheritance and to | | | | | | identify otherfamily | | | | | | members at risk.Testing | | | | | | Characteristics: Genetic | | | | | | testing | | | | | | providesexceptionally | | | | | | high sensitivity and | | | | | | specificity. | | | | | | Inaccurateresults are | | | | | | limited to rare | | | | | | polymorphisms in primer | | | | | | bindingsites and to | | | | | | misidentification of | | | | | | specimens by | | | | | | collectorsor laboratory | | | | | | personnel. This assay | | | | | | detects only | | | | | | theprothrombin [id number] | | | | | | mutation and does not | | | | | | detect othergenetic | | | | | | abnormalities.This test | | | | | | was developed and its | | | | | | performance | | | | | | characteristicsdetermine | | | | | | d by [facility]. It has not | | | | | | been cleared or | | | | | | approvedby the Food and | | | | | | Drug | | | | | | Administration.Reference | | | | | | s: Michele Gross, et al. Br J | | | | | | of [place]em. | | | | | | 1996;98:907.Raven HARRIS, | | | | | | et don. Br J of Haem. | | | | | | 1996;98:353. | | | | | | Denise and | | | | | | Jeana Mol.Diagn. | | | | | | 2000;6(3):201.Margret | | | | | | Konstantin et al. Thromb | | | | | | [place]. | | | | | | 2000;86:809-16.Zuri | | | | | | carmen Andrea, et al. Thromb | | | | | | [place]. | | | | | | 1998;82:1583.Testing | | | | | | performed by [facility] | | | | | | [facility],[id number] | | | | [address], | | | | | | [place], [place] [id number] | | | | + + + + + ----+ + + | Specimen | + + | | + + + +---------+ + + | Performing | Address | City/State/Zipcode | Phone Number | | Organization | | | | + +---------+ + + | EXTERNAL LAB | | | | + +---------+ + + POC Glucose (10/14/2017 1:10 AM PDT) + + + + + + | Component | Value | Ref Range | Performed | Pathologist | | | | | At | Signature | + + + + + + | Glucose, | 239 (H)Comment: Testing | 65 - 99 mg/dL | EXTERNAL | | | Fingerstick | performed at [facility];[address] | | LAB | | | | [address];[place] | | | | | | [address] | | | | + + + + + + + + | Specimen | + + | | + + + +---------+ + + | Performing | Address | City/State/Zipcode | Phone Number | | Organization | | | | + +---------+ + + | EXTERNAL LAB | | | | + +---------+ + + CT Angiogram Pulmonary w Contrast (10/13/2017 11:19 PM PDT) + + | Specimen | + + | | + + + + + | Impressions | Performed At | + + + | 1. Solitary small filling defect in the right lower lobe pulmonary | | | artery. 2. Otherwise normal CTA of the chest no aortic dissection | | | | | + + + + + + | Narrative | Performed At | + + + | [facility] CTA CHEST PULMONARY EMBOLISM W CONTRAST 10/13/2017 | | | 11:19 PM HISTORY: 61 years. Male. Pleuritic chest pain and | | | shortness of breath rule out pulmonary emboli TECHNIQUE: 1.5-mm | | | axial images of the chest were acquired in the arterial phase | | | according to a CT angiography protocol. Coronal CT angiographic MIP | | | reconstructions were performed. IV contrast: 70 mL IsoVue 370 | | | Dose reduction techniques were used including automated exposure | | | control (AEC), iterative reconstruction technique, and/or mA and/or kV | | | dose adjustments based on patient size COMPARISON: 12/27/2014 | | | FINDINGS: CT ANGIOGRAM: The pulmonary arterial tree is well | | | opacified. Pulmonary arteries are normal in caliber. There is a | | | single intraluminal filling defect in the right lower lobe artery | | | (126/2) the remainder of the pulmonary arteries have no filling | | | defects. 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 No dissection, aneurysm or stenosis is seen in the | | | aorta or great vessels. No aneurysmal dilatation. No evidence of | | | dissection. The heart is normal in size. No pericardial abnormality | | | is noted. No filling defects are seen in the chambers of the heart | | | to suggest clot or tumor. CT CHEST: The lungs are well | | | aerated. No acute airspace disease, parenchymal nodule, mass, | | | pleural effusion or pneumothorax is noted. No bronchiectasis is | | | seen. The thyroid is symmetric and shows no evidence of a solid or | | | cystic mass. No bulky adenopathy is seen in the lower gordon | | | stations of the neck, axillary regions, mediastinum or hilar regions. | | | The thoracic esophagus is normal. No hiatal hernia is seen. | | | The muscles of the chest are symmetric. No focal atrophy or soft | | | tissue mass is seen. The osseous structures of the chest do not | | | demonstrate lytic or blastic lesions. Scan was continued into the | | | upper portion of the abdomen there is no free air or free fluid | | + + + + + | Procedure Note | + + | Richard, Rad Conversion - 09/19/2018 1:06 AM PDT [facility] CHEST PULMONARY | | EMBOLISM W CONTRAST10/13/2017 11:19 PM HISTORY:61 years. Male. Pleuritic chest pain and | | shortness of breath rule out pulmonary emboli TECHNIQUE:1.5-mm axial images of the chest | | were acquired in the arterial phase according to a CT angiography protocol. Coronal CT | | angiographic MIP reconstructions were performed.IV contrast: 70 mL IsoVue 370 Dose | | reduction techniques were used including automated exposure control (AEC), iterative | | reconstruction technique, and/or mA and/or kV dose adjustments based on patient size | | COMPARISON:12/27/2014 FINDINGS:CT ANGIOGRAM:The pulmonary arterial tree is well | | opacified.Pulmonary arteries are normal in caliber. 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 No dissection, aneurysm or stenosis is seen in the aorta or great | | vessels. No aneurysmal dilatation.No evidence of dissection.The heart is normal in size. | | No pericardial abnormality is noted. No filling defects are seen in the chambers of | | the heart to suggest clot or tumor. CT CHEST: The lungs are well aerated. No acute | | airspace disease, parenchymal nodule, mass, pleural effusion or pneumothorax is noted. | | No bronchiectasis is seen. The thyroid is symmetric and shows no evidence of a solid or | | cystic mass. No bulky adenopathy is seen in the lower gordon stations of the neck, | | axillary regions, mediastinum or hilar regions. The thoracic esophagus is normal. No | | hiatal hernia is seen. The muscles of the chest are symmetric. No focal atrophy or soft | | tissue mass is seen. The osseous structures of the chest do not demonstrate lytic or | | blastic lesions. Scan was continued into the upper portion of the abdomen there is no | | free air or free fluid IMPRESSION: 1. Solitary small filling defect in the right lower | | lobe pulmonary artery.2. Otherwise normal CTA of the chest no aortic dissection | | | | | |The lungs are well aerated. No acute airspace disease, parenchymal nodule, mass, pleural e ffusion or pneumothorax is noted. No bronchiectasis is seen. | | | |The thyroid is symmetric and shows no evidence of a solid or cystic mass. | | | |No bulky adenopathy is seen in the lower gordon stations of the neck, axillary regions, medi astinum or hilar regions. | | | | | |The thoracic esophagus is normal. No hiatal hernia is seen. | | | |The muscles of the chest are symmetric. No focal atrophy or soft tissue mass is seen. | | | |The osseous structures of the chest do not demonstrate lytic or blastic lesions. | | | |Scan was continued into the upper portion of the abdomen there is no free air or free fluid | | | |IMPRESSION: | |1. Solitary small filling defect in the right lower lobe pulmonary artery. | |2. Otherwise normal CTA of the chest no aortic dissection | | | | | + + XR Chest 2 Vws (10/13/2017 7:42 PM PDT) + + | Specimen | + + | | + + + + + | Impressions | Performed At | + + + | 1. No radiographic findings of acute pulmonary disease to account | | | for patient's symptomatology. Correlate clinically. | | | | | + + + + + + | Narrative | Performed At | + + + | [facility] XR CHEST 2 VIEW FRONTAL AND LATERAL 10/13/2017 7:42 PM | | | HISTORY: 61 years. Male. Chest pain TECHNIQUE: XR CHEST | | | 2 VIEW FRONTAL AND LATERAL. Standard technique. Total of 4 images | | | obtained. COMPARISON: None. FINDINGS: The lungs and pleural | | | spaces are clear. The cardiac silhouette and pulmonary vasculature | | | are normal. No hilar or mediastinal adenopathy. Osseous structures are | | | unremarkable. | | + + + + + | Procedure Note | + + | Richard, Rad Conversion - 09/19/2018 1:06 AM PDT [facility] CHEST 2 VIEW FRONTAL | | AND LATERAL10/13/2017 7:42 PM HISTORY:61 years. Male. Chest pain TECHNIQUE:XR CHEST 2 | | VIEW FRONTAL AND LATERAL. Standard technique. Total of 4 images obtained. | | COMPARISON:None. FINDINGS:The lungs and pleural spaces are clear. The cardiac | | silhouette and pulmonary vasculature are normal. No hilar or mediastinal adenopathy. | | Osseous structures are unremarkable. IMPRESSION: 1. No radiographic findings of acute | | pulmonary disease to account for patient's symptomatology. Correlate clinically. | | | |XR CHEST 2 VIEW FRONTAL AND LATERAL. Standard technique. Total of 4 images obtained. | | | |COMPARISON: | |None. | | | |FINDINGS: | |The lungs and pleural spaces are clear. The cardiac silhouette and pulmonary vasculature a re normal. No hilar or mediastinal adenopathy. Osseous structures are unremarkable. | | | |IMPRESSION: | |1. No radiographic findings of acute pulmonary disease to account for patient's symptomato logy. Correlate clinically. | | | | | | | | | + + ECG 12 lead (10/13/2017 6:39 PM PDT) + + + + + + | Component | Value | Ref Range | Performed | Pathologist | | | | | At | Signature | + + + + + + | DIAGNOSIS: | Sinus tachycardiaT wave | | EXTERNAL | | | | abnormality, consider | | LAB | | | | inferior | | | | | | ischemiaAbnormal ECGWhen | | | | | | compared with ECG of | | | | | | 25-JUN-2016 15:05,Vent. 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 [place] Julien | | | | | | (124) on 10/14/2017 | | | | | | 12:17:22 PM | | | | + + + + + + + + | Specimen | + + | | + + + + + | Narrative | Performed At | + + + | [facility] | EXTERNAL LAB | + + + + +---------+ + + | Performing | Address | City/State/Zipcode | Phone Number | | Organization | | | | + +---------+ + + | EXTERNAL LAB | | | | + +---------+ + + HISTORICAL LAB PANEL RESULT (10/13/2017 6:36 PM PDT) + + + + + -+ | Component | Value | Ref Range | Performed | Pathologist | | | | | At | Signature | + + + + + -+ | WBC | 15.01 (H) | 3.80 - 11.00 | EXTERNAL | | | | | K/uL | LAB | | + + + + + -+ | Non- | 5.49 | 4.20 - 5.70 | EXTERNAL | | | Red Blood | | M/uL | LAB | | | Cells | | | | | | Counted | | | | | + + + + + -+ | Hemoglobin | 15.2 | 13.2 - 17.0 | EXTERNAL | | | | | g/dL | LAB | | + + + + + -+ | Hematocrit, | 45.3 | 39.0 - 50.0 % | EXTERNAL | | | POC | | | LAB | | + + + + + -+ | MCV | 82.6 | 80.0 - 100.0 fl | EXTERNAL | | | | | | LAB | | + + + + + -+ | MCH | 27.7 | 27.0 - 34.0 pg | EXTERNAL | | | | | | LAB | | + + + + + -+ | MCHC | 33.6 | 32.0 - 35.5 | EXTERNAL | | | | | g/dL | LAB | | + + + + + -+ | RDW-CV | 44.6 | 37 - 53 fl | EXTERNAL | | | | | | LAB | | + + + + + -+ | Platelet | 418 (H) | 150 - 400 K/uL | EXTERNAL [...] + + -+ | % Segmented | 83.06 | % | EXTERNAL | | | | | | LAB | | | Neutrophils | | | | | + + + + + -+ | % | 10.83 | % | EXTERNAL | | | Lymphocytes | | | LAB | | + + + + + -+ | % Monocytes | 5.82 | % | EXTERNAL | | | | | | LAB | | + + + + + -+ | % | 0.03 | % | EXTERNAL | | | Eosinophils | | | LAB | | + + + + + -+ | % Basophils | 0.26 | % | EXTERNAL | | | | | | LAB | | + + + + + -+ | Absolute | 12.47 (H) | 1.90 - 7.40 | EXTERNAL | | | Segmented | | K/uL | LAB | | | Neutrophils | | | | | + + + + + -+ | Absolute | 1.63 | 1.00 - 3.90 | EXTERNAL | | | Lymphocytes | | K/uL | LAB | | + + + + + -+ | Absolute | 0.87 (H) | 0.00 - 0.80 | EXTERNAL | | | Monocytes | | K/uL | LAB | | + + + + + -+ | Absolute | 0.00 | 0.00 - 0.50 | EXTERNAL | | | Eosinophils | | K/uL | LAB | | + + + + + -+ | Absolute | 0.04 | 0.00 - 0.10 | EXTERNAL | | | Basophils | | K/uL | LAB | | + + + + + -+ | Na | 131 (L) | 135 - 145 | EXTERNAL | | | | | mmol/L | LAB | | + + + + + -+ | K | 4.0 | 3.5 - 4.9 | EXTERNAL | | | | | mmol/L | LAB | | + + + + + -+ | Cl | 92 (L) | 99 - 109 mmol/L | EXTERNAL | | | | | | LAB | | + + + + + -+ | CO2 | 23 | 23 - 32 mmol/L | EXTERNAL | | | | | | LAB | | + + + + + -+ | Anion Gap | 20 | 5 - 20 mmol/L | EXTERNAL | | | | | | LAB | | + + + + + -+ | Glucose, | 396 (H) | 65 - 99 mg/dL | EXTERNAL | | | Fasting | | | LAB | | + + + + + -+ | BUN | 23 | 8 - 25 mg/dL | EXTERNAL | | | | | | LAB | | + + + + + -+ | Creatinine | 1.6 (H) | 0.70 [...] + + + -+ | Protein, | 8.8 (H) | 6.3 - 8.2 g/dL | EXTERNAL | | | Total | | | LAB | | + + + + + -+ | Albumin | 3.6 | 3.3 - 4.8 g/dL | EXTERNAL | | | | | | LAB | | + + + + + -+ | Globulin | 5.2 (H) | 1.3 - 4.9 g/dL | EXTERNAL | | | | | | LAB | | + + + + + -+ | A/G Ratio | 0.7 (L) | 1.0 - 2.4 | EXTERNAL | | | | | | LAB | | + + + + + -+ | Bilirubin | 0.7 | 0.1 - 1.5 mg/dL | EXTERNAL | | | Total | | | LAB | | + + + + + -+ | ALP, | 108 | 35 - 115 U/L | EXTERNAL | | | External | | | LAB | | + + + + + -+ | AST | 17 | 10 - 45 U/L | EXTERNAL | | | | | | LAB | | + + + + + -+ | ALT | 23 | 10 - 65 U/L | EXTERNAL | | | | | | LAB | | + + + + + -+ | Estimated | 44 (L)Comment: GFR <60: | mL/min/1.73m2 | EXTERNAL [...] + + -+ | CK, Total | 65 | 55 - 400 U/L | EXTERNAL [...] + + + -+ | CK-MB | 4.1 (H) | 0.5 - 3.6 ng/mL | EXTERNAL | | | | | | LAB | | + + + + + -+ | CK-MB Index | 6.3Comment: CK INDEX | | EXTERNAL | | [...] | + +---------+ + + Troponin I (10/13/2017 6:36 PM PDT) + + + + + [...] | | | | | | ACUTE OR Testing | | | | | | performed at [facility];[address] | | | | | | [facility];[place], [place] | | | | | | [address] | | | | + + + [...] +---------+ + + B Type Natriuretic Peptide (10/13/2017 6:36 PM PDT) + + + + + + | Component | Value | Ref Range | Performed | Pathologist | | | | | At | Signature | + + + + + + | BNP | 11.2Comment: Testing | 0 - 100 pg/mL | EXTERNAL | | | | performed at [facility] [place] [facility];[address] | | LAB | | | | [address];[place], [place] | | | | | | [address] | | | | + + + [...] pain, unspecified type | + + | Shortness of breath | + + | Acute electrocardiogram changes | + + | Neutrophilic leukocytosis Other specified disease of white blood cells | + + | Other acute pulmonary embolism without acute cor pulmonale (HCC) | + + | Essential hypertension Unspecified essential hypertension | + + | Obstructive sleep apnea syndrome Obstructive sleep apnea (adult) (pediatric) | + + | Paroxysmal atrial fibrillation (HCC) Atrial fibrillation | + + documented in this encounter
--- OUTSIDE RECORDS SUMMARY | ~2019-09-09 | XMS | Encounter Summary ---
Demographics + + + | Address | [address] | | | [place] [address] | + + + | Home Phone [...] + | Sammi Kohler | ECON | [place] [address] | | + + + + + Care Team Providers + +------+ + | Care Grinder Set Up Operator Surface Name | Role | Phone | + +------+ + PCP | Unavailable | + +------+ + Encounter Details +--------+ + + + + | Date | Type | Department | Care Team | Description | +--------+ + + + + | 10/10/ | Hospital | [facility] | Justin Mathis, | | | 2012 | [facility] | [address] [place] [address] | | | | | [address] | [address], | | | | | [place], [place] | [place] [address] | | | | | [address] | [phone] | | | | | [phone] | | | +--------+ + + + [...] documented as of this encounter Discharge Summaries Justin Mathis MD - 10/10/2012 9:53 AM PDT Discharge Summaries by Justin Mathis MD at 10/10/12952 Author: Justin Mathis MD Service: (none) Author Type: Physician Filed: 10/10/12953 Date of Service: 10/10/12952 Status: Signed Husbandry Technician: Justin Mathis MD (Physician) [facility] Service: Plastic Surgery Brief Post-op Discharge Note DISCHARGE DIAGNOSES: Active Problems: * No active hospital problems. * Resolved Problems: * No resolved hospital problems. * Procedures: Procedure(s) with comments: EXCISION - SKIN CANCER - upper arm and upper back w/frozen section This patient was transferred to the recovery area post-operatively and has experienced no d ifficulties at the time of my assessment. The patient is anticipated to continue to meet di scharge criteria per protocol as assessed by nursing and may be discharged at that time with designated caregiver. Disposition: Home Condition: Good Code Status: Prior No discharge procedures on file. Follow up: No follow-up provider specified. Current Discharge Medication List START taking these medications Details hydrocodone-acetaminophen (VICODIN ES) 7.5-750 MG per tablet Take 1 tablet by mouth every 6 (six) hours as needed for Pain. Qty: 20 tablet, Refills: 0 CONTINUE these medications which have NOT CHANGED Details ARIPiprazole (ABILIFY) 10 MG tablet Take 10 mg by mouth daily. atenolol (TENORMIN) 100 MG tablet Take 200 mg by mouth nightly. cloNIDine (CATAPRES) 0.1 MG tablet Take 1 tablet by mouth 2 (two) times daily. Qty: 60 tablet, Refills: 1 clopidogrel (PLAVIX) 75 MG tablet Take 75 mg by mouth daily. fenofibrate (TRIGLIDE) 160 MG tablet Take 160 mg by mouth daily. fluticasone-salmeterol (ADVAIR DISKUS) 250-50 MCG/DOSE AEPB Inhale 1 puff into the lungs e very 12 (twelve) hours. Qty: 2 each, Refills: 1 glipiZIDE (GLUCOTROL) 5 MG tablet Take 5 mg by mouth 2 (two) times daily before meals. ipratropium-albuterol (COMBIVENT) 18-103 MCG/ACT inhaler Inhale 2 puffs into the lungs cintia ry 6 (six) hours as needed for Wheezing. Qty: 1 Inhaler, Refills: 0 lisinopril (PRINIVIL,ZESTRIL) 20 MG tablet Take 1 tablet by mouth daily. Qty: 30 tablet, Refills: 1 METFORMIN HCL PO Take 1,000 mg by mouth 2 (two) times daily. paroxetine (PAXIL) 40 MG tablet Take 40 mg by mouth every morning. pravastatin (PRAVACHOL) 20 MG tablet Take 20 mg by mouth nightly. ranitidine (ZANTAC) 150 MG tablet Take 1 tablet by mouth 2 (two) times daily. Qty: 60 tablet, Refills: 0 tiotropium (SPIRIVA) 18 MCG inhalation capsule Inhale 18 mcg into the lungs daily. diltiazem (DILACOR XR) 120 MG 24 hr capsule Take 240 mg by mouth daily. STOP taking these medications aspirin 81 MG tablet Comments: Reason for Stopping: JUSTIN MATHIS MD 10/10/2012 documented in thi s encounter Medications at [...] documented as of this encounter H&P Notes Justin Mathsi MD - 10/10/2012 8:02 AM PDT Interval H&P Note by Justin Mathis MD at 10/10/12801 Author: Justin Mathis MD Service: (none) Author Type: Physician Filed: 10/10/12801 Date of Service: 10/10/12801 Status: Signed Husbandry Technician: Justin Mathis MD (Physician) [facility] Service: Plastic Surgery Pre-Operative History & Physical Interval Update There have been no significant clinical changes since the completion of the above H&P. JUSTIN MATHIS MD 10/10/2012 *CORE MEASURES REMINDER: If the patient has a known or suspected infection prior to surger y, please add diagnosis to the problem list (consider: Infection 136.9). Source Note Author: Justin Mathis MD Service: (none) Author Type: Physician Filed: 09/26/12 1559 Date of Service: 09/26/12 155 Status: Signed Husbandry Technician: Justin Mathis MD (Physician) [facility] Service: Plastic Surgery Pre-Operative History & Physical HISTORY OF PRESENT ILLNESS The patient is a 56 y.o. male Admitted for outpatient surgery involving excision of basal c ell carcinoma located on the left upper lateral arm and left upper back. Review of Systems Constitutional: Negative. Respiratory: Negative for apnea, cough and shortness of breath. Cardiovascular: Negative for chest pain. Past Medical History Diagnosis Date Diabetes mellitus type II Atrial fibrillation Hypertension Hyperlipidemia Anxiety Depression WARD (obstructive sleep apnea) 08/11/2012 Basal cell carcinoma 09/26/2012 Past Surgical History Procedure Date Unlisted procedure arthroscopy Knee surgery Leg surgery LLE Colonoscopy Cholecystectomy, laparoscopic 09/12/2012 Procedure: LAPAROSCOPIC - CHOLECYSTECTOMY; Surgeon: Jevon Vargas DO; Location: [facility]; Service: General; Laterality: N/A; Allergies Allergen Reactions B12-Ca Rash "B12" makes gives him a rash Current Outpatient Prescriptions on File Prior to Visit Medication Sig Dispense Refill ARIPiprazole (ABILIFY) 10 MG tablet Take 10 mg by mouth daily. aspirin 81 MG tablet Take 1 tablet by mouth daily with breakfast. 30 tablet 1 atenolol (TENORMIN) 100 MG tablet Take 200 mg by mouth nightly. cloNIDine (CATAPRES) 0.1 MG tablet Take 1 tablet by mouth 2 (two) times daily. 60 tabl et 1 clopidogrel (PLAVIX) 75 MG tablet Take 75 [...] every 12 (twelve) hours. 2 each 1 glipiZIDE (GLUCOTROL) 5 MG tablet Take 5 mg by mouth 2 (two) times daily before meals. ipratropium-albuterol (COMBIVENT) 18-103 MCG/ACT inhaler Inhale 2 puffs into the lungs every 6 (six) hours as needed for Wheezing. 1 Inhaler 0 lisinopril (PRINIVIL,ZESTRIL) 20 MG tablet Take 1 tablet by mouth daily. 30 tablet 1 METFORMIN HCL PO Take 1,000 mg by mouth 2 (two) times daily. paroxetine (PAXIL) 40 MG tablet Take 40 mg by mouth every morning. pravastatin (PRAVACHOL) 20 MG tablet Take 20 mg by mouth nightly. ranitidine (ZANTAC) 150 MG tablet Take 1 tablet by mouth 2 (two) times daily. 60 table t 0 tiotropium (SPIRIVA) 18 MCG inhalation capsule Inhale 18 mcg into the lungs daily. Family History Problem Relation Age of Onset Heart disease Father Heart disease Sister Diabetes type II Sister PHYSICAL EXAM Vital Signs: There were no vitals taken for this visit. Physical Exam Constitutional: He appears well-developed and well-nourished. Cardiovascular: Normal rate and regular rhythm. Pulmonary/Chest: Effort normal and breath sounds normal. skin: Ulcerated lesions left upper lateral arm and left upper back PROBLEM LIST Patient Active Problem List Diagnosis Diabetes mellitus type II Atrial fibrillation Other chest pain Chest pain HTN (hypertension) RUQ pain Cholelithiases Hypoxia WARD (obstructive sleep apnea) Fall at home Anxiety and depression CO2 retention Respiratory acidosis Neoplasm of uncertain behavior of skin Labile hypertension Accelerated hypertension Basal cell carcinoma ASSESSMENT & PLAN Basal cell carcinoma left upper arm and left upper back. The patient will undergo excision with frozen section guidance. RCAPs discussed with him in detail. JUSTIN MATHIS MD 09/26/2012 leming, Justin Redman MD - 09/26/2012 3:57 PM PDT H&P (View-Only) by Justin Mathis MD at 09/26/12 0306 Author: Justin Mathis MD Service: (none) Author Type: Physician Filed: 09/26/12 4683 Date of Service: 09/26/12 0946 Status: Signed Husbandry Technician: Justin Mathis MD (Physician) [facility] Service: Plastic Surgery Pre-Operative History & Physical HISTORY OF PRESENT ILLNESS The patient is a 56 y.o. male Admitted for outpatient surgery involving excision of basal c ell carcinoma located on the left upper lateral arm and left upper back. Review of Systems Constitutional: Negative. Respiratory: Negative for apnea, cough and shortness of breath. Cardiovascular: Negative for chest pain. Past Medical History Diagnosis Date Diabetes mellitus type II Atrial fibrillation Hypertension Hyperlipidemia Anxiety Depression WARD (obstructive sleep apnea) 08/11/2012 Basal cell carcinoma 09/26/2012 Past Surgical History Procedure Date Unlisted procedure arthroscopy Knee surgery Leg surgery LLE Colonoscopy Cholecystectomy, laparoscopic 09/12/2012 Procedure: LAPAROSCOPIC - CHOLECYSTECTOMY; Surgeon: Jevon Vargas DO; Location: [facility]; Service: General; Laterality: N/A; Allergies Allergen Reactions B12-Ca Rash "B12" makes gives him a rash Current Outpatient Prescriptions on File Prior to Visit Medication Sig Dispense Refill ARIPiprazole (ABILIFY) 10 MG tablet Take 10 mg by mouth daily. aspirin 81 MG tablet Take 1 tablet by mouth daily with breakfast. 30 tablet 1 atenolol (TENORMIN) 100 MG tablet Take 200 mg by mouth nightly. cloNIDine (CATAPRES) 0.1 MG tablet Take 1 tablet by mouth 2 (two) times daily. 60 tabl et 1 clopidogrel (PLAVIX) 75 MG tablet Take 75 [...] every 12 (twelve) hours. 2 each 1 glipiZIDE (GLUCOTROL) 5 MG tablet Take 5 mg by mouth 2 (two) times daily before meals. ipratropium-albuterol (COMBIVENT) 18-103 MCG/ACT inhaler Inhale 2 puffs into the lungs every 6 (six) hours as needed for Wheezing. 1 Inhaler 0 lisinopril (PRINIVIL,ZESTRIL) 20 MG tablet Take 1 tablet by mouth daily. 30 tablet 1 METFORMIN HCL PO Take 1,000 mg by mouth 2 (two) times daily. paroxetine (PAXIL) 40 MG tablet Take 40 mg by mouth every morning. pravastatin (PRAVACHOL) 20 MG tablet Take 20 mg by mouth nightly. ranitidine (ZANTAC) 150 MG tablet Take 1 tablet by mouth 2 (two) times daily. 60 table t 0 tiotropium (SPIRIVA) 18 MCG inhalation capsule Inhale 18 mcg into the lungs daily. Family History Problem Relation Age of Onset Heart disease Father Heart disease Sister Diabetes type II Sister PHYSICAL EXAM Vital Signs: There were no vitals taken for this visit. Physical Exam Constitutional: He appears well-developed and well-nourished. Cardiovascular: Normal rate and regular rhythm. Pulmonary/Chest: Effort normal and breath sounds normal. skin: Ulcerated lesions left upper lateral arm and left upper back PROBLEM LIST Patient Active Problem List Diagnosis Diabetes mellitus type II Atrial fibrillation Other chest pain Chest pain HTN (hypertension) RUQ pain Cholelithiases Hypoxia WARD (obstructive sleep apnea) Fall at home Anxiety and depression CO2 retention Respiratory acidosis Neoplasm of uncertain behavior of skin Labile hypertension Accelerated hypertension Basal cell carcinoma ASSESSMENT & PLAN Basal cell carcinoma left upper arm and left upper back. The patient will undergo excision with frozen section guidance. RCAPs discussed with him in detail. JUSTIN MATHIS MD 09/26/2012 documented in thi s encounter Miscellaneous Notes Op Note - Justin Mathis MD - 10/10/2012 9:50 AM PDT Op Note by Justin Mathis MD at 10/10/12 0950 Author: Justin Mathis MD Service: (none) Author Type: Physician Filed: 10/10/12 1604 Date of Service: 10/10/12 0950 Status: Signed Husbandry Technician: Justin Mathis MD (Physician) Related Notes: Original Note by Justin Mathis MD (Physician) filed at 10/10/12 0906 [facility] OPERATIVE NOTE PLASTIC SURGERY DEPT Name: Norah Gr Age: 56 y.o. Todays Date: 10/10/2012 Time: 9:50 AM Procedure: #1. Excision of squamous cell carcinoma measuring 3 x 6 cm left upper lateral a rm with complex closure 9 cm wound #2. Excision of squamous cell carcinoma left upper back measuring 4.5 x 4 cm with comple x closure of 10 cm wound Diagnoses: Pre-Op: Basal cell carcinoma left upper arm and left upper back Post-Op: The same Surgeon: Justin Mathis MD Anesthesia: Gen. Provider: Dr. Burgos Estimated Blood Loss: 5 cc Total IV Fluids: See anesthesia record Complications: NONE Procedure Note: The patient was placed on the operating table in the supine position with appropriate neuro vascular padding. After the induction of general anesthesia the patient was placed in the right lateral decub itus position with appropriate neurovascular padding. The left upper arm and left upper back were then prepped and draped in a sterile fashion. The plane of dissection and line of inci sions were then infiltrated with half and half Marcaine and lidocaine containing epinephrine . The lesion on the left upper arm was excised first in the superior margin. It was marked w ith a nylon suture. Frozen section showed all margins were free of tumor. The triangles at t he superior and inferior aspect of the wound were then excised and the periphery of the woun d undermined extensively to allow for closure. Hemostasis was secured with electrocautery. T he wound was then closed in layers with 2-0 and 3-0 Vicryl followed by a running subcuticula r suture with 3-0 Vicryl. The lesion on the left upper back was then excised in a similar fa shion, removing a circular portion of skin and subcutaneous fat. Frozen sections were then p erformed which showed there was a positive margin at the 9 to 10 o'clock position. Additiona l tissue was then excised and sent for permanent section evaluation because any further tiss ue resection would preclude closure of the wound in a primary fashion. The plan was to remov e more tissue if necessary based on the permanent sections, and this would be done in a seri al fashion. The periphery of the wound was then undermined extensively after removing triang les from the dorsal and inferior aspect of the circular wound. Hemostasis was secured with e lectrocautery. The wound was then closed in layers with inverted intradermal sutures of 2-0 and 3-0 Vicryl, followed by a running subcuticular suture of 3-0 Vicryl followed by interrup tasia simple sutures of 2-0 nylon. Steri-Strips with benzoin were then applied to the wounds f ollowed by sterile gauze, secured with Tegaderms. All sponge needle and Instrument counts were correct. The patient tolerated the procedure w ell and was discharged to the recovery room in stable condition. JUSTIN MATHIS MD has created this entry using [employer]ognition [employer] and [employer] macros. The entry has been reviewed and there may still exist sound alike word e rrors. documented in thi s encounter Plan of Treatment +--------+---------+ + + + | Date | Type | Specialty | Care Team | Description | +--------+---------+ + + + | 09/10/ | Office | Geriatric Medicine | Mireya Pack, | | | 2019 | Visit | | [employer] [address] | | | | | | [address] [place], | | | | | | [place] [address] | | | | | | [phone] | | | | | | | | +--------+---------+ + + + | 09/29/ | Office | Urology | Mireya Pack, | | | 2019 | Visit | | [employer] S[employer] WORK[employer] [address] | | | | | | [address] [facility], | | | | | | [place] [address] | | | | | | [phone] | | | | | | | | | | | | [place], | | | | | | [address] | | | | | | [place] [address] | | | | | | [phone] | | | | | | | | +--------+---------+ + + + documented as of this encounter Procedures + +--------+ + + + | Procedure Name | Priori | Date/Time | Associated Diagnosis | Comments | | | ty | | | | + +--------+ + + + | TISSUE REQUEST FOR | Routin | 10/10/2012 | | Results for this | | PATHOLOGY (NON-ORD) | e | 12:00 AM | | procedure are in the | | | | PDT | | results section. | + +--------+ + + + documented in this encounter Results Tissue Request For Pathology (10/10/2012 12:00 AM PDT) + + | Specimen | + + | | + + + + + | Narrative | Performed At | + + + | CASE: [id number] PATIENT: NORAH GR Surgical Pathology Report | EXTERNAL LAB | | PATHOLOGIC DIAGNOSIS: A. Skin, left upper arm, excision: | | | - Basal cell carcinoma, infiltrative, ulcerated. - All | | | surgical resection margins are free of carcinoma. Comment: The | | | closest surgical margin is the deep margin at 1 mm distance (slide | | | A3). B. Skin, left upper back, excision: - Basal cell | | | carcinoma, invasive, ulcerated. - Surgical resection margins | | | are free of this carcinoma. C. Skin, left upper back, excision: | | | - Skin with scar. - There is no evidence of residual | | | carcinoma present in these sections. D. Skin, left upper back, | | | additional superior margin, excision: - Skin with no evidence | | | of basal cell carcinoma. INTRAOPERATIVE CONSULTATION: | | | FROZEN SECTION: DATE AND TIME: 10/10/2012 at 09:27 H. | | | REPORTED TO: Dr. Mathis REPORTED BY: | | | Dr. Pierre FROZEN DIAG: | | | (FSA1, FSA2, FSA3) BCC; margins clear. FROZEN SECTION: | | | DATE AND TIME: at 09:27 H REPORTED TO: | | | Dr. Mathis REPORTED BY: Dr. Pierre | | | FROZEN DIAG: (FSB1, FSB2) BCC focally at 9-10 | | | o'clock margin. CLINICAL HISTORY: 10/10/2012 at 08:50 H. | | | GROSS DESCRIPTION: Four specimens are received in four containers, | | | labeled with the patient's name: A. Received fresh for frozen | | | section diagnosis designated "left upper lateral arm", consists of | | | 4.7 x 3.0 x 1.7 cm oriented skin ellipse. A sutures present at one | | | tip identifying the superior margin and is redesignated 12 o'clock. | | | The specimen is inked as follows: 12-3 o'clock-blue, 3-6 | | | o'clock-green, 6-9 o'clock-black, 9-12 o'clock-orange, and the deep | | | margin is inked black. A portion of the specimen is submitted for | | | frozen section resubmitted as received in cassette FSA1-FSA3. | | | Additional sections are submitted in cassettes A4-A6. Cassette | | | Summary: (FSA1) 12 and 6 o'clock tips; (FSA2) Bi Architect sections | | | of 12-3-6 o'clock margin, perpendicular; (FSA3) Bi Architect | | | sections of the 6-9-12 o'clock margin, perpendicular; (A4) | | | additional sections of 12-3-6 o'clock margins; (A5) additional | | | sections on 6-9-12 o'clock margins; (A6) Bi Architect sections of | | | deep margin. B. Received fresh for frozen section diagnosis | | | designated "left upper back", consists of a 4.1 x 3.9 x 1.7 cm | | | oriented skin ellipse. A suture identifies the superior margin it is | | | redesignated 12 o'clock. The specimen is inked as follows: 12-3 | | | o'clock-blue, 3-6 o'clock-green, 6-9 o'clock-black, 9-12 | | | o'clock-orange, and the deep margin is inked black. The 12 and 6 | | | o'clock aspects are shaved and submitted for frozen section diagnosis | | | in cassette FSB1. A mid cross-section of the specimen is submitted | | | for frozen section in FSB2. Additional cross sections of skin to deep | | | margin are submitted in cassettes B3-B4. See requisition for more | | | detailed cassette summary. C. Received in formalin designated | | | "left upper back", consists of a 5.5 x 1.0 x 1.7 cm oriented skin | | | ellipse. A double suture is present at one tip identifying the 12 | | | o'clock margin and a single suture identifies the previous 9 o'clock | | | margin. The skin surface is pink-fraga and smooth. The specimen is | | | inked as follows: 12-3-6 o'clock - black, 6-9-12 o'clock - blue. | | | Two white sutures are present on the right aspect of the skin. The | | | specimen is serially sectioned from 12 to 6 o'clock and entirely | | | submitted in four cassettes. Cassette Summary: (C1) 12 o'clock tip; | | | (C2-C3) body of skin ellipse submitted from 12 to 6 o'clock; (C4) 6 | | | o'clock tip, serially sectioned. D. Received in formalin | | | designated "left upper back additional superior margin suture at | | | superior margin", consists of a 2.3 x 2.1 x 1.3 cm triangular skin | | | excision. A sutures present identifying the superior margin it will | | | be redesignated 12 o'clock. The specimen is inked as follows: | | | 12-3-6 o'clock - black, 6-9 o'clock - green, 9-12 o'clock - blue. | | | The specimen is serially sectioned from 12 to 6 o'clock with the | | | 4-6-8 o'clock margin, perpendicular resection. Bi Architect sections | | | are submitted in four cassettes. Cassette Summary: (D1) 12 o'clock | | | tip, bisected; (D2) body of skin ellipse; (D3-D4) 4-6-8 o'clock | | | margin, perpendicular sectioned. MICROSCOPIC EXAMINATION: | | | A/B/C/D. Histologic sections of all submitted blocks are examined by | | | light microscopy. These findings, together with the gross examination, | | | support the pathologic diagnosis. This report has been prepared | | | using a voice recognition system. The report was reviewed for | | | accuracy, however, sound-alike word errors, addition and/or deletions | | | may occur. If there is any question about this report please contact | | | the originating pathologist. Philip Richard MD | | | Electronically signed Oct 16, 2012 9:15:48AM | | + + + + +---------+ + + | Performing | Address | City/State/Zipcode | Phone Number | | Organization | | | | + +---------+ + + | EXTERNAL LAB | | | | + +---------+ + + documented in this encounter Visit Diagnoses Not on filedocumented in this encounter
--- OUTSIDE RECORDS SUMMARY | ~2019-09-09 | XMS | Encounter Summary ---
Demographics + + + | Address | [address] | | | [place] [address] | + + + | Home Phone | | + + + | Preferred Language | Unknown | + + + | Marital Status | | + + + | Baptism Affiliation | [id number] | + + + | Race | Unknown | + + + | Ethnic Group | Unknown | + + + Author + + + | Author | [facility] | | | and [place] | + + + | Organization | [facility] | | | and [place] | + + + | Address | Unknown | + + + | Phone | Unavailable | + + + Support + + + + + | Name | Relationship | Address | Phone | + + + + + | Sammi Kohler | ECON | [place] [address] | | + + + + + Care Team Providers + +------+ + | Care Concrete Craftsman Name | Role | Phone | + +------+ + | Mik Diego DO | PCP | | + +------+ + Encounter Details +--------+ + + + + | Date | Type | Department | Care Team | Description | +--------+ + + + + | 09/21/ | Emergency | [facility] | Mik Kwong, | Chest pain, | | 2019 | | [facility] | [address] | unspecified type; | | | | EMERGENCY [facility]ENTER | [place] [address] | Hypertension, | | | | [address] | [phone] | unspecified type | | | | [place], [place] | | | | | | [address] | | | | | | [phone] | | | +--------+ + + + [...] + + + | Blood Pressure | 230/99 | 09/21/2018 9:33 PM | | | | | PDT | | + + + + + | Pulse | 54 | 09/21/2018 9:33 PM | | | | | PDT | | + + + + + | Temperature | 36.4 C (97.6 F) | 09/21/2018 9:33 PM | | | | | PDT | | + + + + + | Respiratory Rate | 16 | 09/21/2018 9:33 PM | | | | | PDT | | + + + + + | Oxygen Saturation | - | - | | + + + + + | Inhaled Oxygen | - | - | | | Concentration | | | | + + + + + | Weight | 98.6 kg (217 lb 5.9 | 09/21/2018 9:33 PM | | | | oz) | PDT | | + + + + + | Height | - | - | | + + + + + | Body Mass Index | 30.32 | 09/15/2018 11:45 AM | | | | | PDT [...] tablet by | 30 | 1 | 08/10/20 | | | (ABILIFY) 5 mg | [...] documented as of this encounter ED Notes Mik Kwong MD - 09/21/2018 5:40 PM PDTFormatting of this note might be different fr om the original. ED Provider Notes by Mik Kwong MD at 09/21/181739 Author: Mik Kwong MD Service: Emergency Department Author Type: Physician Filed: 09/22/18 1238 Date of Service: 09/21/181739 Status: Signed Engine Lathe Tender: Mik Kwong MD (Physician) [facility] Department of Emergency Medicine 5:49 PM History of Present Illness Patient Identification Kevyn Guzman is a 62 y.o. male. Patient information was obtained from patient and past medical records. History/Exam limitations: none. Patient presented to the Emergency Department by: Car Chief Complaint Chief Complaint Patient presents with Chest Pain my a fib is acting up Chief complaint: chest pain Location: substernal chest Severity: moderate Onset: past eight days Timing: constant Modifying factors: none reported Care prior to arrival: none reported Associated symptoms: throat dryness, mild abdominal pain Denies: any other symptoms Context: Patient presents to the ED with complaints of chest pain. Onset of these symptoms was about eight days ago with a constant course since that time. Patient has a history of at rial fibrillation, COPD, developmental delays, previous PE/DVT, HLD, and HTN, and previous s troke and has previously undergone a cholecystectomy. Patient has been experiencing chest pa in and SOB for the past four days. Patient had been evaluated in the [facility] ED twice and [facility] ED once during that time. Patient also notes throat dryness and mild abdominal pain. Checkout Supervisor: None PCP: No primary care provider on file. Review of Systems Constitutional: Negative for fever or recent illness Eyes: Negative for vision changes Nose: Negative for congestion Throat: Positive for throat dryness Negative for sore throat CV: Positive for substernal chest pain, SOB Resp: Negative for cough GI: Positive for mild abdominal pain Negative for nausea, vomiting, diarrhea : Negative for urinary problems, dysuria, frequency, hematuria Musculoskeletal: Negative for back pain, extremity pain or swelling Skin: Negative for rash Neuro/Psych: Negative for headache All other systems reviewed and negative except as noted. Past Medical History Diagnosis Date Acute pulmonary embolism (HCC) 10/14/2017 Anxiety ARF (acute renal failure) ([facility]) 03/02/2013 Atrial fibrillation ([facility]) Basal cell carcinoma 09/26/2012 arm and back COPD (chronic obstructive pulmonary disease) ([facility]) 03/02/2013 hypoxemia on 2 lts nc Depression Development delay Diabetes mellitus type II DVT (deep venous thrombosis) ([facility]) 03/29/2018 Facial droop 07/08/2013 GIB (gastrointestinal [...] MD; Location: [facility]; Service: Gastroen terology; Laterality: N/A; ESOPHAGOGASTRODUODENOSCOPY N/A 03/03/2013 Procedure: ESOPHAGOGASTRODUODENOSCOPY; Surgeon: Howie Gibson MD; Location: [facility]; Se rvice: Gastroenterology; Laterality: N/A; HERNIA REPAIR N/A 07/03/2013 Procedure: LAPAROSCOPIC - HERNIA - INCISIONAL; Surgeon: Jevon Vargas DO; Location: [facility] OR; Service: General; Laterality: [...] FROZEN SECTION; Surgeon: Sy Fierro MD; Location: [facility] OR; Service: Plastics; Laterality: [...] daily with meals. 09/14/1809/14/19 Noble Conteh MD docusate sodium (COLACE) 250 MG capsule [...] Number of children: 1 Years of education: [employer]. [employer] Occupational History disabled Social History Main Topics [...] Diabetes type II Sister Heart Problems Brother Physical Exam BP (!) 207/98 | Pulse 67 | Temp 97.6 F (36.4 C) (Oral) | Resp 16 | Wt 98.6 kg (217 lb 6 oz) | SpO2 98% | BMI 30.32 kg/m Vital signs interpretation: elevated blood pressure, otherwise WNL Pulse Oximetry interpretation: Normal General: Alert, in no apparent distress Eyes: Normal inspection, non-icteric, non-injected ENT: Nose normal Pharynx normal Moist mucous membranes Neck: Normal inspection Back: Normal inspection CV: Rate and rhythm normal No murmurs Symmetric radial pulses Respiratory: Bilaterally clear to auscultation No rales, wheezing or rhonchi Abdomen: Soft, non-distended, non-tender No masses, rebound or guarding Extremities: Non tender, no edema Calves non tender Well healed scar to the R lower leg Skin: Color normal Warm and dry No rash Neuro: Alert, no AMS No gross motor/sensory deficits Medical Decision Making and Emergency Department Course ED Department Course Patient presents to ED with complaints of chest pain. My DDx includes, but is not limited t o: acute CO, unstable angina, thoracic aortic dissection, pneumothorax, PE, myocarditis, per icarditis, esophagitis, musculoskeletal disorder, pleurisy, vs other. Will assess blood wor k, EKG, CT chest, and chest xray, give aspirin, and reevaluate the patient. 7:22 PM Chest xray shows no acute findings. 7:53 PM Blood work reviewed. Cardiac panel shows hyperglycemia. Troponin I, drawn at 6:10 P M, is 0.026. Coag's WNL. 8:09 PM CTA chest shows no acute findings. Records reviewed. Patient had been admitted from 09/13 to 09/17 and had been diagnosed with new-onset atrial fibrillation with RVR. Patient had reportedly ceased taking all of his med ications three months before. Patient was restarted on his medications at that time. Records received from [facility] dated 09/18/18. He was seen there for chest pain and workup in the ED was unremarkable except for hyperglycemia. 9:19 PM Reevaluated the patient and discussed the results with the patient. Patient has exp erienced marked improvement following the administration of aspirin. Patient has a caregiver at home. Will proceed with discharging the patient. Patient is stable and feeling better at this time. I discussed all ED results and my clinic al impression with the patient. I advised patient to follow up with his new PCP with whom he states he has an upcoming appointment. He cannot recall the name of the new provider at thi s time, but states he has the contact information at home. He states he has restarted he med ications over the past week and is taking them as prescribed. We discussed the emergent sign s and symptoms that would necessitate an immediate return to ED. All questions and concerns addressed. Patient is ready for discharge. Will discharge home. Medications aspirin chewable tablet 324 mg (324 mg Oral Given 09/21/181823) iohexol (OMNIPAQUE 350) 350 mg/mL injection 100 mL (100 mLs Intravenous Given 09/21/181940) ketorolac (TORADOL) injection 15 mg (15 mg Intravenous Given 09/21/182108) Vitals: 09/21/18195409/21/18210009/21/18210709/21/182130 BP: (!) 230/98 (!) 201/96 (!) 201/96 (!) 230/99 BP Location: Left upper arm Pulse: 56 60 54 Resp: 18 (!) 31 16 Temp: TempSrc: SpO2: 98% Weight: Records Reviewed Old medical records. Nursing notes. Previous ED visits for similar and unrelated complaints. Laboratory Evaluation Results Procedure Component Value Ref Range Date/Time Protime-INR [[id number]] Collected: 09/21/181916 Order Status: Completed Updated: 09/21/181952 INR 0.9 aPTT [[id number]] Collected: 09/21/181916 Order Status: Completed Updated: 09/21/181952 APTT 26 23 - 32 seconds Cardiac Panel [[id number]] (Abnormal) Collected: 09/21/181809 Order Status: Completed Updated: 09/21/181935 WBC 9.62 3.80 - 11.00 K/uL RBC 5.53 4.20 - 5.70 M/uL HGB 15.6 13.2 - 17.0 g/dL HCT 46.2 39.0 - 50.0 % MCV 83.6 80.0 - 100.0 fl MCH 28.2 27.0 - 34.0 pg MCHC 33.7 32.0 - 35.5 g/dL RDW SD 41.1 37 - 53 fl PLT 243 150 - 400 K/uL MPV 7.7 fl DIFF TYPE AUTOMATED NEUTROPHILS 50.48 % LYMPHOCYTES 35.68 % MONOCYTES 8.36 % EOSINOPHILS 4.77 % BASOPHILS 0.71 % NEUTROPHILS ABS 4.86 1.90 - 7.40 K/uL LYMPHOCYTES ABS 3.43 1.00 - 3.90 K/uL MONOCYTES ABS 0.80 0.00 - 0.80 K/uL EOSINOPHILS ABS 0.46 0.00 - 0.50 K/uL BASOPHILS ABS 0.07 0.00 - 0.10 K/uL SODIUM 140 135 - 145 mmol/L POTASSIUM 4.0 3.5 - 4.9 mmol/L CHLORIDE 103 99 - 109 mmol/L CO2 27 23 - 32 mmol/L ANION GAP AGAP 14 5 - 20 mmol/L GLUCOSE 292 (H) 65 - 99 mg/dL BUN 14 8 - 25 mg/dL CREATININE 1.12 0.70 - 1.30 mg/dL BUN/CREAT 13 CALCIUM 8.9 8.5 - 10.5 mg/dL TOTAL PROTEIN 6.8 6.3 - 8.2 g/dL Albumin 4.1 3.3 - 4.8 g/dL GLOBULIN 2.7 1.3 - 4.9 g/dL A/G 1.5 1.0 - 2.4 TBIL 0.5 0.1 - 1.5 mg/dL ALK PHOS 109 35 - 115 U/L AST 21 10 - 45 U/L ALT 18 10 - 65 U/L EGFR >60 >60 mL/min/1.73m2 CPK 71 55 - 400 U/L PROTIME QUANTITY NOT SUFFICIENT seconds INR QUANTITY NOT SUFFICIENT APTT QUANTITY NOT SUFFICIENT 23 - 32 seconds MMB 2.1 0.5 - 3.6 ng/mL CK-MB Index 3.0 Troponin I, Lab [[id number]] Collected: 09/21/181809 Order Status: Completed Specimen: Blood Updated: 09/21/181935 TROPONIN I 0.026 0.00 - 0.04 ng/mL I personally reviewed the lab results and they have been posted to the chart. Pertinent po sitive and negative findings have been addressed appropriately. Radiology and EKG Evaluation Imaging Results CT Chest PE Protocol (Final result) Result time 09/21/18 20:04:35 Final result by Jsoe Meza MD (09/21/18 20:04:35) Impression: Mildly enlarged heart size. Otherwise normal CT pulmonary angiogram. Signed by: Irina Meza Brian Sign Date/Time: 09/21/2018 8:04 PM Narrative: CT ANGIOGRAM PULMONARY CLINICAL INFORMATION: Chest pain evaluate for Pulmonary embolism. COMPARISON: XR CHEST 2 VIEW FRONTAL AND LATERAL (09/21/2018); XR CHEST 2 VIEW FRONTAL AND LATERAL (09/16/2018); XR CHEST 2 VIEW FRONTAL AND LATERAL (09/13/2018); PROCEDURE: Thin-section images of the entire chest after the administration of 65 ml omnipaque 350 intravenous contrast. 3D MIP thin slab images and 2D multiplanar reconstructions performed. At least one of the following CT dose optimization techniques were used: Automated exposure control; Adjustment of mA and/or kV according to patient size; Use of iterative reconstruction technique. FINDINGS: PULMONARY ARTERIES: No pulmonary embolism. RIGHT VENTRICLE TO LEFT VENTRICLE RATIO: Not applicable. (Maximum short axis diameter on axial image. Applicable only when pulmonary embolism present. Abnormal greater than or equal to 0.9.) CHEST Lungs, Pleura and Airways: No significant pulmonary abnormality. No airway narrowing or obstruction. No pleural effusion or pneumothorax. Mediastinum: Aorta normal in course caliber, giving rise to a 3 vessel arch. Thoracic inlet normal. Pulmonary arteries normal in course and caliber. Mild cardiomegaly. Esophagus normal in course and caliber. Lymph Nodes: No adenopathy. Upper Abdomen: No significant abnormality in the visualized upper abdomen. BODY WALL Soft Tissues: The soft tissues of the chest wall are unremarkable. Bones: No acute fracture or vertebral end plate destruction. No lytic or blastic lesion. XR Chest PA and Lateral (Final result) Result time 09/21/18 19:17:19 Final result by Jose Meza MD (09/21/18 19:17:19) Impression: No acute cardiopulmonary disease. Signed by: Irina Meza Brian Sign Date/Time: 09/21/2018 7:17 PM Narrative: CHEST PA AND LATERAL CLINICAL INFORMATION: Chest pain. COMPARISON: XR CHEST 2 VIEW FRONTAL AND LATERAL (09/16/2018); XR CHEST 2 VIEW FRONTAL AND LATERAL (09/13/2018); XR CHEST 2 VIEW FRONTAL AND LATERAL (05/12/2018); XR CHEST 2 VIEW FRONTAL AND LATERAL (02/06/2018); FINDINGS: Mediastinal and cardiac borders are normal. No significant bronchial wall thickening. No focal pulmonary opacities. No pneumothorax or pleural effusion. Bones and soft tissues unremarkable. EKG @ 1720 Normal sinus rhythm at a rate of 65 Possible left atrial enlargement LVH No ectopy. No STEMI or other ischemic changes. As compared to previous EKG from 09/14/2018, there are no significant changes appreciated. This EKG was interpreted by me independently. Mik Kwong MD ED Diagnoses Final diagnoses Chest pain, unspecified type Hypertension, unspecified type Disposition: ED Disposition ED Disposition Condition Comment Discharge Stable Follow-up Information Follow up With Specialties Details Why Contact Info Your new doctor Go to Keep your upcoming appointment [facility] Emergency Department Emergency Medicine If symptoms worsen [address] [place] [address] Discharge Medications: Discharge Medication List as of 09/21/2018 9:38 PM Mik Kwong MD Procedures Additional Documentation Procedures Attending Provider Note: IMik MD personally performed the services described in this documentation, as scribed by Bennie Mahmood in my presence, and it is both accurat e and complete. Chart Reviewed and Completed: 09/22/2018 12:37 PM Scribe: Kari Teixeira, scribing for and in the presence of Mik Kwong MD. Signed by: Kari Gutiérrez 09/22/2018 12:37 PM Mik Kwong MD 09/22/18 1238 documented in this encounter Miscellaneous Notes Miscellaneous - Conversion Transaction, Provider Unknown - 09/21/2018 6:23 PM PDTFormattin g of this note might be different from the original. 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 After reviewing the home medication list : I agree with the home medication list. Confirmed PREPRESS SUPERVISOR medications with patient and insurance fill history. Adjusted PREPRESS SUPERVISOR medications according to the food science technician note below. - removed humalog. Patient prescribed insulin aspart. However, has not taken insulin since 09/15/18. - Removed lisinopril 40 mg tablet. Patient dose reduced to 10 mg per pharmacy. However, he has not been taking recently. - prescribed pravastatin 80 mg daily, but has not been taking medication and has not refill ed recently. Please Review and Order Home Medications as necessary. Thanks Elmo Ramesh, [facility] 09/21/2018 6:21 PM >> Marlyn Pfeiffer CPhT 09/21/2018 18:10 Rx Medication History Optical Lens Manufacturing Tech Note Patients Preferred Pharmacy has been updated in EPIC: yes [facility] - [place], [place] - [address] [place] [id number] [id number] [facility] [address] [facility] [address] [facility], [place], [place] - [address] [place] [phone] [facility] [address] [facility], [address] [place], [place] [address] [facility], [facility] [address] [facility] [address] Patients Allergies have been updated and marked as reviewed: yes Nitroglycerin and Vitamin b12 The following changes were made to the allergy list (if any): N/A Medication History provided by: Patient, Patient Medication List, Outside Pharmacy and [employer] Software Info Follow-up Issues: None - Pending Pharmacist Review High Risk Medications (dual source verification needed): Insulin and Anticoagulants Changes made to the medication list include: Added: Lisinopril 10 mg Novolog 12 units TID Flagged for deletion: Humalog: RX pharmacy dispensed Novolog Lisinoprl 40 mg: dose changed to 10 mg daily Colace 240 mg: reported Reliability of information obtained: RELIABLE Additional Comments: patient reported has not been taking insulin since 09/15/18- medicat ions were delivered to bedside by RX pharmacy on 09/15/18- patient reported does not have me ds with him at home and has not taken both insulins since then. Also, has not been taking Li sinopril. Prescription is filled at [facility] and they said patient has not picked u p new RX: Lisinopril 10 mg daily. Same for Pravastatin 80 mg daily. Has not refill med. Medication history has been completed: *Awaiting Pharmacist Final Review* Marlyn Pfeiffer CPhT 09/21/2018 6:03 PM ONDAdocume kauffmaned in this encounter Plan of Treatment +--------+---------+ + + + | Date | Type | Specialty | Care Team | Description | +--------+---------+ + + + | 09/10/ | Office | Geriatric Medicine | iMreya Pack, | | | 2019 | Visit | | [employer] [address] | | | | | | [address] [place], | | | | | | [place] [address] | | | | | | [phone] | | | | | | | | +--------+---------+ + + + | 09/29/ | Office | Urology | Mireya Pack, | | | 2019 | Visit | | [employer] [facility] [address] | | | | | | [address] [place], | | | | | | [place] [address] | | | | | | [phone] | | | | | | | | | | | | Toy Wild, DO | | | | | | [address] | | | | | | [place] [address] | | | | | | [phone] | | | | | | | | +--------+---------+ + + + documented as of this encounter Procedures + +--------+ + + + | Procedure Name | Priori | Date/Time | Associated Diagnosis | Comments | | | ty | | | | + +--------+ + + + | CT ANGIOGRAM | Routin | 09/21/2018 | | Results for this | | PULMONARY | e | 7:51 PM | | procedure are in the | | | | PDT | | results section. | + +--------+ + + + | PTT | Routin | 09/21/2018 | | Results for this | | | e | 7:17 PM | | procedure are in the | | | | PDT | | results section. | + +--------+ + + + | PROTIME INR | Routin | 09/21/2018 | | Results for this | | | e | 7:17 PM | | procedure are in the | | | | PDT | | results section. | + +--------+ + + + | XR CHEST 2 VIEWS | Routin | 09/21/2018 | | Results for this | | | e | 6:51 PM | | procedure are in the | | | | PDT | | results section. | + +--------+ + + + | HISTORICAL LAB PANEL | Routin | 09/21/2018 | | Results for this | | RESULT | e | 6:10 PM | | procedure are in the | | | | PDT | | results section. | + +--------+ + + + | TROPONIN I | Routin | 09/21/2018 | | Results for this | | | e | 6:10 PM | | procedure are in the | | | | PDT | | results section. | + +--------+ + + + documented in this encounter Results CT Angiogram Pulmonary w Contrast (09/21/2018 7:51 PM PDT) + + | Specimen | + + | | + + + + + | Impressions | Performed At | + + + | Mildly enlarged heart size. Otherwise normal CT pulmonary | | | angiogram. Signed by: Irina Meza Brian Sign Date/Time: | | | 09/21/2018 8:04 PM | | + + + + + + | Narrative | Performed At | + + + | CT ANGIOGRAM PULMONARY CLINICAL INFORMATION: Chest pain evaluate | | | for Pulmonary embolism. COMPARISON: XR CHEST 2 VIEW FRONTAL AND | | | LATERAL (09/21/2018); XR CHEST 2 VIEW FRONTAL AND LATERAL (09/16/2018); | | | XR CHEST 2 VIEW FRONTAL AND LATERAL (09/13/2018); PROCEDURE: | | | Thin-section images of the entire chest after the administration of 65 | | | ml omnipaque 350 intravenous contrast. 3D MIP thin slab images and | | | 2D multiplanar reconstructions performed. At least one of the | | | following CT dose optimization techniques were used: Automated | | | exposure control; Adjustment of mA and/or kV according to patient | | | size; Use of iterative reconstruction technique. FINDINGS: PULMONARY | | | ARTERIES: No pulmonary embolism. RIGHT VENTRICLE TO LEFT VENTRICLE | | | RATIO: Not applicable. (Maximum short axis diameter on axial image. | | | Applicable only when pulmonary embolism present. Abnormal greater | | | than or equal to 0.9.) CHEST Lungs, Pleura and Airways: No | | | significant pulmonary abnormality. No airway narrowing or | | | obstruction. No pleural effusion or pneumothorax. Mediastinum: Aorta | | | normal in course caliber, giving rise to a 3 vessel arch. Thoracic | | | inlet normal. Pulmonary arteries normal in course and caliber. | | | Mild cardiomegaly. Esophagus normal in course and caliber. Lymph | | | Nodes: No adenopathy. Upper Abdomen: No significant abnormality in | | | the visualized upper abdomen. BODY WALL Soft Tissues: The soft | | | tissues of the chest wall are unremarkable. Bones: No acute fracture | | | or vertebral end plate destruction. No lytic or blastic lesion. | | + + + + + | Procedure Note | + + | Richard, Rad Conversion - 10/12/2018 8:[address] ANGIOGRAM PULMONARY | | CLINICAL INFORMATION: | | Chest pain evaluate for Pulmonary embolism. | | COMPARISON: | | XR CHEST 2 VIEW FRONTAL AND LATERAL (09/21/2018); XR CHEST 2 VIEW | | FRONTAL AND LATERAL (09/16/2018); XR CHEST 2 VIEW FRONTAL AND LATERAL | | (09/13/2018); | | PROCEDURE: | | Thin-section images of the entire chest after the administration of 65 | | ml omnipaque 350 intravenous contrast. 3D MIP thin slab images and 2D | | multiplanar reconstructions performed. | | At least one of the following CT dose optimization techniques were | | used: Automated exposure control; Adjustment of mA and/or kV according | | to patient size; Use of iterative reconstruction technique. | | FINDINGS: | | PULMONARY ARTERIES: No pulmonary embolism. | | RIGHT VENTRICLE TO LEFT VENTRICLE RATIO: Not applicable. (Maximum short | | axis diameter on axial image. Applicable only when pulmonary embolism | | present. Abnormal greater than or equal to 0.9.) | | CHEST | | Lungs, Pleura and Airways: No significant pulmonary abnormality. No | | airway narrowing or obstruction. No pleural effusion or pneumothorax. | | Mediastinum: Aorta normal in course caliber, giving rise to a 3 vessel | | arch. Thoracic inlet normal. Pulmonary arteries normal in course and | | caliber. Mild cardiomegaly. Esophagus normal in course and caliber. | | Lymph Nodes: No adenopathy. | | Upper Abdomen: No significant abnormality in the visualized upper | | abdomen. | | BODY WALL | | Soft Tissues: The soft tissues of the chest wall are unremarkable. | | Bones: No acute fracture or vertebral end plate destruction. No lytic | | or blastic lesion. | | IMPRESSION: | | Mildly enlarged heart size. Otherwise normal CT pulmonary angiogram. | | Signed by: Irina Meza Brian | | Sign Date/Time: 09/21/2018 8:04 PM | + + PTT (09/21/2018 7:17 PM PDT) + + + + + + | Component | Value | Ref Range | Performed | Pathologist | | | | | At | Signature | + + + + + + | aPTT, | 26Comment: Testing | 23 - 32 seconds | EXTERNAL | | | Patient | performed at [facility] [place];[address] | | LAB | | | | Breanna Maher;[place] | | | | | | [id number] | | | | + + + + + + + + | Specimen | + + | | + + + +---------+ + + | Performing | Address | City/State/Zipcode | Phone Number | | Organization | | | | + +---------+ + + | EXTERNAL LAB | | | | + +---------+ + + Protime INR (09/21/2018 7:17 PM PDT) + + + + + [...] | | | | performed at [facility] [place] | | | | | | [facility];[place], [place] | | | | | | [id number] | | | | + + + + + + + + | Specimen | + + | | + + + +---------+ + + | Performing | Address | City/State/Zipcode | Phone Number | | Organization | | | | + +---------+ + + | EXTERNAL LAB | | | | + +---------+ + + XR Chest 2 Vws (09/21/2018 6:51 PM PDT) + + | Specimen | + + | | + + + + + | Impressions | Performed At | + + + | No acute cardiopulmonary disease. Signed by: Irina Meza Brian | | | Sign Date/Time: 09/21/2018 7:17 PM | | + + + + + + | Narrative | Performed At | + + + | CHEST PA AND LATERAL CLINICAL INFORMATION: Chest pain. | | | COMPARISON: XR CHEST 2 VIEW FRONTAL AND LATERAL (09/16/2018); XR CHEST | | | 2 VIEW FRONTAL AND LATERAL (09/13/2018); XR CHEST 2 VIEW FRONTAL AND | | | LATERAL (05/12/2018); XR CHEST 2 VIEW FRONTAL AND LATERAL (02/06/2018); | | | FINDINGS: Mediastinal and cardiac borders are normal. No | | | significant bronchial wall thickening. No focal pulmonary opacities. | | | No pneumothorax or pleural effusion. Bones and soft tissues | | | unremarkable. | | + + + + + | Procedure Note | + + | Richard, Rad Conversion - 10/12/2018 8:46 AM PDT CHEST PA AND LATERAL | | CLINICAL INFORMATION: | | Chest pain. | | COMPARISON: | | XR CHEST 2 VIEW FRONTAL AND LATERAL (09/16/2018); XR CHEST 2 VIEW | | FRONTAL AND LATERAL (09/13/2018); XR CHEST 2 VIEW FRONTAL AND LATERAL | | (05/12/2018); XR CHEST 2 VIEW FRONTAL AND LATERAL (02/06/2018); | | FINDINGS: | | Mediastinal and cardiac borders are normal. No significant bronchial | | wall thickening. No focal pulmonary opacities. No pneumothorax or | | pleural effusion. Bones and soft tissues unremarkable. | | IMPRESSION: | | No acute cardiopulmonary disease. | | Signed by: Irina Meza Brian | | Sign Date/Time: 09/21/2018 7:17 PM | + + HISTORICAL LAB PANEL RESULT (09/21/2018 6:10 PM PDT) + + + + + -+ | Component | Value | Ref Range | Performed | Pathologist | | | | | At | Signature | + + + + + -+ | WBC | 9.62 | 3.80 - 11.00 | EXTERNAL | | | | | K/uL | LAB | | + + + + + -+ | Non- | 5.53 | 4.20 - 5.70 | EXTERNAL | | | Red Blood | | M/uL | LAB | | | Cells | | | | | | Counted | | | | | + + + + + -+ | Hemoglobin | 15.6 | 13.2 - 17.0 | EXTERNAL | | | | | g/dL | LAB | | + + + + + -+ | Hematocrit, | 46.2 | 39.0 - 50.0 % | EXTERNAL | | | POC | | | LAB | | + + + + + -+ | MCV | 83.6 | 80.0 - 100.0 fl | EXTERNAL | | | | | | LAB | | + + + + + -+ | MCH | 28.2 | 27.0 - 34.0 pg | EXTERNAL | | | | | | LAB | | + + + + + -+ | MCHC | 33.7 | 32.0 - 35.5 | EXTERNAL | | | | | g/dL | LAB | | + + + + + -+ | RDW-CV | 41.1 | 37 - 53 fl | EXTERNAL | | | | | | LAB | | + + + + + -+ | Platelet | 243 | 150 - 400 K/uL | EXTERNAL | | | Count | | | LAB | | | Plasma | | | | | + + + + + -+ | MPV | 7.7 | fl | EXTERNAL | | | | | | LAB | | + + + + + -+ | Differentia | AUTOMATED | | EXTERNAL | | | l Type | | | LAB | | + + + + + -+ | % Segmented | 50.48 | % | EXTERNAL | | | | | | LAB | | | Neutrophils | | | | | + + + + + -+ | % | 35.68 | % | EXTERNAL | | | Lymphocytes | | | LAB | | + + + + + -+ | % Monocytes | 8.36 | % | EXTERNAL | | | | | | LAB | | + + + + + -+ | % | 4.77 | % | EXTERNAL | | | Eosinophils | | | LAB | | + + + + + -+ | % Basophils | 0.71 | % | EXTERNAL | | | | | | LAB | | + + + + + -+ | Absolute | 4.86 | 1.90 - 7.40 | EXTERNAL | | | Segmented | | K/uL | LAB | | | Neutrophils | | | | | + + + + + -+ | Absolute | 3.43 | 1.00 - 3.90 | EXTERNAL | | | Lymphocytes | | K/uL | LAB | | + + + + + -+ | Absolute | 0.80 | 0.00 - 0.80 | EXTERNAL | | | Monocytes | | K/uL | LAB | | + + + + + -+ | Absolute | 0.46 | 0.00 - 0.50 | EXTERNAL | [...] + + + -+ | Glucose, | 292 (H) | 65 - 99 mg/dL | EXTERNAL | | | Fasting | | | LAB | | + + + + + -+ | BUN | 14 | 8 - 25 mg/dL | EXTERNAL | | | | | | LAB | | + + + + + -+ | Creatinine | 1.12 | 0.70 - 1.30 | EXTERNAL | | | | | mg/dL | LAB | | + + + + + -+ | BUN/Creatin | 13 | | EXTERNAL | | | ine Ratio | | | LAB | | + + + + + -+ | Calcium | 8.9 | 8.5 - 10.5 | EXTERNAL | | | | | mg/dL | LAB | | + + + + + -+ | Protein, | 6.8 | 6.3 - 8.2 g/dL | EXTERNAL | | | Total | | | LAB | | + + + + + -+ | Albumin | 4.1 | 3.3 - 4.8 g/dL | EXTERNAL | | | | | | LAB | | + + + + + -+ | Globulin | 2.7 | 1.3 - 4.9 g/dL | EXTERNAL | | | | | | LAB | | + + + + + -+ | A/G Ratio | 1.5 | 1.0 - 2.4 | EXTERNAL | | | | | | LAB | | + + + + + -+ | Bilirubin | 0.5 | 0.1 - 1.5 mg/dL | EXTERNAL | | | Total | | | LAB | | + + + + + -+ | ALP, | 109 | 35 - 115 U/L | EXTERNAL | | | External | | | LAB | | + + + + + -+ | AST | 21 | 10 - 45 U/L | EXTERNAL [...] + + -+ | CK, Total | 71 | 55 - 400 U/L | EXTERNAL | | | | | | LAB | | + + + + + -+ | Protime | QUANTITY NOT SUFFICIENT | seconds | EXTERNAL | | | | | | LAB | | + + + + + -+ | INR | QUANTITY NOT SUFFICIENT | | EXTERNAL | | | | | | LAB | | + + + + + -+ | aPTT, | QUANTITY NOT SUFFICIENT | 23 - 32 seconds | EXTERNAL | | | Patient | | | LAB | | + + + + + -+ | CK-MB | 2.1 | 0.5 - 3.6 ng/mL | EXTERNAL | | | | | | LAB | | + + + + + -+ | CK-MB Index | 3.0Comment: CK INDEX | | EXTERNAL | | [...] | + +---------+ + + Troponin I (09/21/2018 6:10 PM PDT) + + + + + + | Component | Value | Ref Range | Performed | Pathologist | | | | | At | Signature | + + + + + + | Troponin I, | 0.026Comment: 0.04 | 0.00 - 0.04 | EXTERNAL [...] | | | | | | [facility] [place];[address] | | | | | | [address];[place] [address] | | | | + + + [...] pain, unspecified type | + + | Hypertension, unspecified type | + + documented in this encounter"
--- OUTSIDE RECORDS SUMMARY | ~2019-09-09 | XMS | Encounter Summary ---
Demographics + + + | Address | [address] | | | [place] [address] | + + + | Home Phone [...] + | Sammi Kohler | ECON | [place] [address] | | + + + + + Care Team Providers + +------+ + | Care Pickle Sorter Name | Role | Phone | + +------+ + PCP | Unavailable | + +------+ + Encounter Details +--------+ + + + + | Date | Type | Department | Care Team | Description | +--------+ + + + + | 11/11/ | Emergency | [facility] | Zach Tena, | Hypertension | | 2013 | | [facility]ICAL [facility]ENTER | MD [address] | | | | | EMERGENCY CENTER | [place] [address] | | | | | [address] | [phone] | | | | | [place], [place] | | | | | | [address] | | | | | | [phone] | | | +--------+ + + + [...] Progress Notes Conversion Transaction, Provider Unknown - 11/11/2013 11:28 AM PDTFormatting of this note m ight be different from the original. Case Management by QUINN Lea at 11/11/13 1128 Author: QUINN Lea Service: (none) Author Type: Restuarant Crew Worker Filed: 11/11/13 1129 Date of Service: 11/11/131127 Status: Signed Service Desk Team Lead: QUINN Lea (Restuarant Crew Worker) CM contacted pt's [facility]. They will transport from the ED lobby back to [facility]. Starla Lewis docume nted in this encounter ED Notes Conversion Transaction, Provider Unknown - 11/11/2013 11:39 AM PDTFormatting of this note m ight be different from the original. ED Notes by Yojana Richardson RN at 11/11/13 1139 Author: Yojana Richardson RN Service: (none) Author Type: Registered Nurse Filed: 11/11/13 1140 Date of Service: 11/11/131138 Status: Signed Service Desk Team Lead: Yojana Richardson RN (Registered Nurse) Pt ready for discharge, waiting for facility to pickup Yojana Richardson RN 11/11/13 1140 Zach Smyth MD - 11/11/2013 8:41 AM PDTFormatting of this note might be different from the o riginal. ED Provider Notes by Zach Tena MD at 11/11/13 0841 Author: Zach Tena MD Service: (none) Author Type: Physician Filed: 11/15/13 1431 Date of Service: 11/11/1341 Status: Signed Service Desk Team Lead: Zach Tena MD (Physician) [facility] Department of Emergency Medicine 8:50 AM History of Present Illness Patient Identification Kevyn Guzman is a 57 y.o. male. Patient information was obtained from patient. History/Exam limitations: none. Patient presented to the Emergency Department by: [facility] Chief Complaint Chief Complaint Patient presents with Dizziness 8:50 AM. This is a 57 y.o. male with chief complaint of dizziness. Other associated complai nts include HTN. Onset of symptoms was this morning, with a constant course since that time. The symptoms are currently described to be of mild severity. The patient states that the room feels like it is "spinning" and causes him to walk like he is "drunk". No care prior to arrival. Other significant positive and negative factors include: Pt states that his nurse [facility] said his BP was too high, and was sent to the ED. Pt's BP was 199/95 at 5:00 AM. The pt takes Clonidine, Rhodanine, and Lisinopril administered to him daily at [facility] Positive associated with: Leg swelling, intermittent SOB, light headedness Negative associated with: ETOH consumption, or any other symptoms at this time. Other significant factors in the PMH are noted and include: HTN PCP: JERRELL GUTIÉRREZ Past Medical History Diagnosis [...] daily as needed. For GERD Historical Provider cephALEXin (KEFLEX) 500 MG capsule Take 1 capsule by mouth 3 (three) times daily. 11/06/13 1 Gamal Leavitt MD cloNIDine (CATAPRES) 0.2 MG tablet Take 1 [...] into the skin nightly. H istorical Provider hsvusnagh-sgseserx-gvpwcgebv hydroxide-simethicone Take 40 mLs by mouth daily [...] 20 mg by mouth nightly. Historical Provider sulfamethoxazole-trimethoprim (BACTRIM DS,SEPTRA DS) 800-160 MG per tablet Take 1 tablet by mouth 2 (two) times daily. 11/06/13 11/16/13 Gamal Leavitt MD tiotropium (SPIRIVA) 18 MCG inhalation capsule Inhale [...] Brother Review of Systems Review of Systems Respiratory: Positive for shortness of breath (intermittent). Cardiovascular: Positive for leg swelling. Neurological: Positive for dizziness. All other systems reviewed and are negative. Physical Exam BP 173/86 | Pulse 83 | Temp(Src) 97 F (36.1 C) (Oral) | Resp 20 | SpO2 94% Vitals: Hypertensive, otherwise WNL Pulse Oximetry Interpretation: [...] and Emergency Department Course ED Department Course 8:50 AM Pt presents to the ED complaining of dizziness. Patient exam is unremarkable. I feel that the list of possible emergent diagnoses that the patient requires an evaluation for includes (but is not limited to) electrlyte imbalance, HTN, vs other. I believe that a n EKG, Norvasc, laboratory testing and further diagnostic testing is necessary to ensure mykel t there is no acute emergent cause of the symptoms. 9:41 AM. INR 1.0 9:48 AM. Reviewed pt's lab results. Glucose 229. 11:17 AM. Rechecked pt. Pt is resting comfortably at this time. Symptoms have resolved. I h ave discussed my clinical impression and treatment plan with the pt. We have specifically di scussed the signs and symptoms that would constitute the need for an immediate return to the ED, the importance of continued outpatient f/u and the importance of compliance with the d/ c instructions. I have answered any questions that the pt has to the best of my ability. Bas ed upon the pt s history, physical exam, ED course, and diagnostic studies, I feel that th ere is no current emergent medical condition that warrants admission, transfer, or further E D treatment at this time. Medications amLODIPine (NORVASC) tablet 5 mg (5 mg Oral Given 11/11/13905) Filed Vitals: 11/11/13 0842 11/11/13 1008 11/11/13 1112 BP: 173/86 166/81 149/82 Pulse: 83 64 80 Temp: 97 F (36.1 C) TempSrc: Oral Resp: 20 20 20 SpO2: 94% 91% 93% Records Reviewed Old medical records. Nursing notes. Prior ED visits for unrelated complaints. 11/06/13 seen for CP in the ED he was d/c. Pt had a L heart cath on 10/[address] Sterling, cariologist, that showed minimal abnormalitie s. Echo in May [address] angio chest on 10/13/13 which was negative. Laboratory Evaluation Results Procedure Component Value Ref Range Date/Time Comprehensive metabolic panel [[id number]] (Abnormal) Collected: 11/11/13921 Order Status: Completed Updated: 11/11/13947 Specimen Information: Blood SODIUM 139 135 - 143 mmol/L POTASSIUM 3.7 3.5 - 4.9 mmol/L CHLORIDE 105 99 - 109 mmol/L CO2 30 23 - 32 mmol/L ANION GAP AGAP 8 5 - 20 mmol/L GLUCOSE 229 (H) 65 - 99 mg/dL BUN 15 8 - 25 mg/dL CREATININE 1.10 0.70 - 1.30 mg/dL BUN/CREAT 14 CALCIUM 8.8 8.5 - 10.2 mg/dL TOTAL PROTEIN 7.1 6.3 - 8.2 g/dL Albumin 3.2 (L) 3.6 - 5.0 g/dL GLOBULIN 3.9 1.3 - 4.9 g/dL A/G 0.8 (L) 1.0 - 2.4 TBIL 0.3 0.1 - 1.5 mg/dL ALK PHOS 112 35 - 115 U/L AST 24 10 - 45 U/L ALT 23 10 - 65 U/L EGFR >60 >60 mL/min/1.73m2 Protime [[id number]] Collected: 11/11/13921 Order Status: Completed Updated: 11/11/13940 Specimen Information: Blood INR 1.0 CBC with differential [[id number]] (Abnormal) Collected: 11/11/13921 Order Status: Completed Updated: 11/11/13934 Specimen Information: Blood WBC 8.0 3.8 - 11.0 K/uL RBC 4.93 4.20 - 5.70 M/uL HGB 13.2 13.2 - 17.0 g/dL HCT 39.4 39.0 - 50.0 % MCV 79.9 (L) 80.0 - 100.0 fl MCH 26.8 (L) 27.0 - 34.0 pg MCHC 33.5 32.0 - 35.5 g/dL RDW SD 42.0 37 - 53 fl PLT 255 150 - 400 K/uL MPV 7.6 fl DIFF TYPE AUTOMATED NEUTROPHILS 50.8 % LYMPHOCYTES 32.9 % MONOCYTES 10.4 % EOSINOPHILS 4.8 % BASOPHILS 1.1 % NEUTROPHILS ABS 4.1 1.9 - 7.4 K/uL LYMPHOCYTES ABS 2.6 1.0 - 3.9 K/uL MONOCYTES ABS 0.8 0 - 0.8 K/uL EOSINOPHILS ABS 0.4 0 - 0.5 K/uL BASOPHILS ABS 0.1 0 - 0.1 K/uL I personally reviewed the lab results and they have been posted to the chart. Pertinent po sitive and negative findings have been addressed appropriately. Radiology and EKG Evaluation Imaging Results None EK Rate 86 Normal sinus rhythm. No ectopy or blocks. Intervals and segments are normal. No acute ST-T changes. Unchanged from August, Reviewed and interpreted by me independantly and contemporaneously. Zach Tena ED Diagnosis Final diagnosis Hypertension Disposition: ED Disposition Discharge Condition at discharge: Stable Follow-up Information Follow up With Details Comments Contact Info Jerrell Gutiérrez, DO In 3 days or as needed [address] [facility] [address] [facility] Emergency Department If symptoms worsen [address] [facility] [address] Discharge Medications: New Prescriptions No new medications Procedures Additional Documentation Procedures Attending Note: Documentation assistance provided by Wu Linda (Scribe). Information recorded by the scribe has been reviewed and validated by me. Troy laughlin with its contents. MD Zach Randle MD 11/15/13 1431 onversion Transacti on, Provider Unknown - 11/11/2013 8:39 AM PDTFormatting of this note might be different fro m the original. ED Notes by Itzel Huggins RN at 11/11/13838 Author: Itzel Huggins RN Service: (none) Author Type: Registered Nurse Filed: 11/11/13838 Date of Service: 11/11/13838 Status: Signed Service Desk Team Lead: Itzel Huggins RN (Registered Nurse) Bed: 17 Expected date: Expected time: Means of arrival: Comments: docume nted in this encounter Plan of Treatment +--------+---------+ + + + | Date | Type | Specialty | Care Team | Description | +--------+---------+ + + + | 09/10/ | Office | Geriatric Medicine | Mireya Pack, | | | 2019 | Visit | | [facility] [address] | | | | | | [address] [place], | | | | | | [place] [address] | | | | | | [phone] | | | | | | | | +--------+---------+ + + + | 09/29/ | Office | Urology | Mireya Pack, | | | 2019 | Visit | | [facility] [address] | | | | | | [address] [place], | | | | | | [place] [address] | | | | | | [phone] | | | | | | | | | | | | Toy Wild, DO | | | | | | [address] | | | | | | [place] [address] | | | | | | [phone] | | | | | | | | +--------+---------+ + + + documented as of this encounter Procedures + +--------+ + + + | Procedure Name | Priori | Date/Time | Associated Diagnosis | Comments | | | ty | | | | + +--------+ + + + | EXTERNAL LAB: CBC | Routin | 11/11/2013 | | Results for this | | | e | 9:22 AM | | procedure are in the | | | | PDT | | results section. | + +--------+ + + + | PROTIME INR | Routin | 11/11/2013 | | Results for this | | | e | 9:22 AM | | procedure are in the | | | | PDT | | results section. | + +--------+ + + + | COMPREHENSIVE | Routin | 11/11/2013 | | Results for this | | METABOLIC PANEL | e | 9:22 AM | | procedure are in the | | | | PDT | | results section. | + +--------+ + + + | ECG 12 LEAD | Routin | 11/11/2013 | | Results for this | | | e | 8:46 AM | | procedure are in the | | | | PDT | | results section. | + +--------+ + + + documented in this encounter Results Protime INR (11/11/2013 9:22 AM PDT) + + + + + [...] | | | | | performed at [facility] | | | | | | [facility];[place], [place] | | | | | | [address] | | | | + + + [...] + +---------+ + + External Lab: CBC (11/11/2013 9:22 AM PDT) + + + + + + | Component | Value | Ref Range | Performed | Pathologist | | | | | At | Signature | + + + + + + | WBC | 8.0Comment: Testing | 3.8 - 11.0 K/uL | EXTERNAL | | | | performed at [facility];[address] | | LAB | | | [address];[place] | | | | | | [address] | | | | + + + + + + | Non- | 4.93Comment: Testing | 4.20 - 5.70 | EXTERNAL | | | Red Blood | performed at [facility];[address] | M/uL | LAB | | | Cells | [address];[place] | | | | | Counted | [id number] | | | | + + + + + + | Hemoglobin | 13.2Comment: Testing | 13.2 - 17.0 | EXTERNAL | | | | performed at [facility];[address] | g/dL | LAB | | | | [address];[place] | | | | | | [address] | | | | + + + + + + | Hematocrit, | 39.4Comment: Testing | 39.0 - 50.0 % | EXTERNAL | | | POC | performed at [facility];[address] | | LAB | | | [address];[place] | | | | | | [address] | | | | + + + + + + | MCV | 79.9 (L)Comment: Testing | 80.0 - 100.0 fl | EXTERNAL | | | | performed at [facility];[address] | | LAB | | | [address];[place] | | | | | | [address] | | | | + + + + + + | MCH | 26.8 (L)Comment: Testing | 27.0 - 34.0 pg | EXTERNAL | | | | performed at [facility];[address] | | LAB | | | | [address];[place] | | | | | | [address] | | | | + + + [...] [place] | | | | | | [address] | | | | + + + + + + | Platelet | 255Comment: Testing | 150 - 400 K/uL | EXTERNAL | | | Count | performed at [facility];[address] | | LAB | | | Plasma | [address];[place] | | | | | | [address] | | | | + + + + + + | MPV | 7.6Comment: Testing | fl | EXTERNAL | | | | performed at [facility];[address] | | LAB | | | [address];[place] | | | | | | [address] | | | | + + + + + + | Differentia | AUTOMATEDComment: | | EXTERNAL | | | l Type | Testing performed at | | LAB | | | | [facility];[address];[place] [address] | | | | + + + + + + | % Segmented | 50.8Comment: Testing | % | EXTERNAL | | | | performed at [facility];[address] | | LAB | | | Neutrophils | [address];[place] | | | | | | [address] | | | | + + + + + + | % | 32.9Comment: Testing | % | EXTERNAL | | | Lymphocytes | performed at [facility];[address] | | LAB | | | | [address];[place] | | | | | | [address] | | | | + + + + + + | % Monocytes | 10.4Comment: Testing | % | EXTERNAL | | | | performed at [facility];[address] | | LAB | | | | [address];[place] | | | | | | [address] | | | | + + + + + + | % | 4.8Comment: Testing | % | EXTERNAL | | | Eosinophils | performed at [facility];[address] | | LAB | | | | [address];[place] | | | | | | [address] | | | | + + + + + + | % Basophils | 1.1Comment: Testing | % | EXTERNAL | | | | performed at [facility];[address] | | LAB | | | | [address];[place] | | | | | | [address] | | | | + + + + + + | Absolute | 4.1Comment: Testing | 1.9 - 7.4 K/uL | EXTERNAL | | | Segmented | performed at [facility];[address] | | LAB | | | Neutrophils | [address];[place] | | | | | | [address] | | | | + + + + + + | Absolute | 2.6Comment: Testing | 1.0 - 3.9 K/uL | EXTERNAL | | | Lymphocytes | performed at [facility];[address] | | LAB | | | | [address];[place] | | | | | | [address] | | | | + + + + + + | Absolute | 0.8Comment: Testing | 0 - 0.8 K/uL | EXTERNAL | | | Monocytes | performed at [facility];[address] | | LAB | | | [address];[place] | | | | | | [address] | | | | + + + + + + | Absolute | 0.4Comment: Testing | 0 - 0.5 K/uL | EXTERNAL | | | Eosinophils | performed at [facility];[address] | | LAB | | | | [address];[place] | | | | | | [address] | | | | + + + + + + | Absolute | 0.1Comment: Testing | 0 - 0.1 K/uL | EXTERNAL | | | Basophils | performed at [facility];[address] | | LAB | | | [address];[place], [place] | | | | | | [address] | | | | + + + [...] + +---------+ + + Comprehensive Metabolic Panel (11/11/2013 9:22 AM PDT) + + + + + [...] [place] | | | | | | [address] | | | | + + + + + + | K | 3.7Comment: Testing | 3.5 - 4.9 | EXTERNAL | | | | performed at [facility];[address] | mmol/L | LAB | | | | [address];[place] | | | | | | [address] | | | | + + + + + + | Cl | 105Comment: Testing | 99 - 109 mmol/L | EXTERNAL | | | | performed at [facility];[address] | | LAB | | | | [address];[place] | | | | | | [address] | | | | + + + + + + | CO2 | 30Comment: Testing | 23 - 32 mmol/L | EXTERNAL | | | | performed at [facility];[address] | | LAB | | | | [address];[place] | | | | | | [address] | | | | + + + + + + | Anion Gap | 8Comment: Testing | 5 - 20 mmol/L | EXTERNAL | | | | performed at [facility];[address] | | LAB | | | | [address];[place] | | | | | | [address] | | | | + + + + + + | Glucose, | 229 (H)Comment: Testing | 65 - 99 mg/dL | EXTERNAL | | | Fasting | performed at [facility];[address] | | LAB | | | | [address];[place] | | | | | | [address] | | | | + + + + + + | BUN | 15Comment: Testing | 8 - 25 mg/dL | EXTERNAL | | | | performed at [facility];[address] | | LAB | | | | [address];[place] | | | | | | [address] | | | | + + + + + + | Creatinine | 1.10Comment: Testing | 0.70 - 1.30 | EXTERNAL | | | | performed at [facility];[address] | mg/dL | LAB | | | | [address];[place] | | | | | | [address] | | | | + + + + + + | BUN/Creatin | 14Comment: Testing | | EXTERNAL | | | ine Ratio | performed at [facility];[address] | | LAB | | | | [address];[place] | | | | | | [address] | | | | + + + + + + | Calcium | 8.8Comment: Testing | 8.5 - 10.2 | EXTERNAL | | | | performed at [facility];[address] | mg/dL | LAB | | | | [address];[place] | | | | | | [address] | | | | + + + + + + | Protein, | 7.1Comment: Testing | 6.3 - 8.2 g/dL | EXTERNAL | | | Total | performed at [facility];[address] | | LAB | | | | [address];[place] | | | | | | [address] | | | | + + + + + + | Albumin | 3.2 (L)Comment: Testing | 3.6 - 5.0 g/dL | EXTERNAL | | | | performed at [facility];[address] | | LAB | | | | [address];[place] | | | | | | [address] | | | | + + + + + + | Globulin | 3.9Comment: Testing | 1.3 - 4.9 g/dL | EXTERNAL | | | | performed at [facility];[address] | | LAB | | | | [address];[place] | | | | | | [address] | | | | + + + + + + | A/G Ratio | 0.8 (L)Comment: Testing | 1.0 - 2.4 | EXTERNAL | | | | performed at [facility];[address] | | LAB | | | | [address];[place] | | | | | | [address] | | | | + + + + + + | Bilirubin | 0.3Comment: Testing | 0.1 - 1.5 mg/dL | EXTERNAL | | | Total | performed at [facility];[address] | | LAB | | | | [address];[place] | | | | | | [address] | | | | + + + + + + | ALP, | 112Comment: Testing | 35 - 115 U/L | EXTERNAL | | | External | performed at [facility];[address] | | LAB | | | | [address];[place] | | | | | | [address] | | | | + + + + + + | AST | 24Comment: Testing | 10 - 45 U/L | EXTERNAL | | | | performed at [facility];[address] | | LAB | | | | [address];[place] | | | | | | [address] | | | | + + + + + + | ALT | 23Comment: Testing | 10 - 65 U/L | EXTERNAL | | | | performed at [facility];[address] | | LAB | | | | [address];[place] | | | | | | [address] | | | | + + + [...] | | | | | [address]vd;[place] [address] | | | | + + + [...] + +---------+ + + ECG 12 lead (11/11/2013 8:46 AM PDT) + + + + + [...] of | | | | | | 06-NOV-2013 | | | | | | 16:10,Nonspecific T wave | | | | | | abnormality, worse in | | | | | | Inferior | | | | | | [...] | | | | | | editorial specialist ZAYNAB HUNT | | | | | | (4) on 11/11/2013 | | | | | | 11:28:19 AM | | | | + + [...]
--- OUTSIDE RECORDS SUMMARY | ~2019-09-09 | XMS | Encounter Summary ---
Demographics + + + | Address | [address] [address] [facility] [address] [address] | | | [place] [address] | + + + | Home Phone [...] + | Sammi Kohler | ECON | [place] [address] | | + + + + + Care Team Providers + +------+ + | Care Extension Professor Name | Role | Phone | + +------+ + PCP | Unavailable | + +------+ + Encounter Details +--------+ + + + + | Date | Type | Department | Care Team | Description | +--------+ + + + + | 10/20/ | Hospital | [facility] | Darrion Ruano MD | Chest pain in adult; | | 2018 - | Encounter | [facility] | [address] | Chronic kidney | | | | CLINICAL DECISION | [place] [address] | disease, unspecified | | 10/21/ | | [address] | [phone] | CKD stage | | 2018 | | [place], [place] | | | | | | [address] | | | | | | [phone] | | | +--------+ + + + [...] + + + | Blood Pressure | 125/59 | 10/21/2017 11:15 AM | | | | | PDT | | + + + + + | Pulse | 54 | 10/21/2017 11:15 AM | | | | | PDT | | + + + + + | Temperature | 36.8 C (98.3 F) | 10/21/2017 11:15 AM | | | | | PDT | | + + + + + | Respiratory Rate | 20 | 10/21/2017 11:15 AM | | | | | PDT | | + + + + + | Oxygen Saturation | - | - | | + + + + + | Inhaled Oxygen | - | - | | | Concentration | | | | + + + + + | Weight | 92.5 kg (204 lb) | 10/21/2017 11:15 AM | | | | | PDT | | + + + + + | Height | 180.3 cm (5' 11") | 10/21/2017 11:15 AM | | | | | PDT | | + + + + + | Body Mass Index | 28.45 | 10/21/2017 11:15 AM | | | | | PDT | | + + + + + documented in this encounter Discharge Summaries Tj Handley DO - 10/21/2017 12:47 PM PDTFormatting of this note might be different from th e original. Discharge Summaries by Tj Handley DO at 10/21/17 5494 Author: Tj Handley DO Service: Hospitalist Author Type: Physician Filed: 10/21/17 4131 Date of Service: 10/21/17 7170 Status: Signed Chargemaster Analyst: Tj Handley DO (Physician) [facility] Service: Hospitalist Physician Discharge Summary Patient ID: Norah Gr 1955 61 y.o. Admit date: 10/20/2017 Discharge date: 10/21/2017 Admitting Physician: Darrion Ruano MD Discharge Physician: Tj Handley DO Consultants: Treatment Team: Consulting Physician: Darrion Ruano MD Admitting Provider: Darrion Ruano MD Primary Discharge Diagnoses: Principal Problem: Chest pain Active Problems: Diabetes mellitus, type 2 HTN (hypertension) WARD (obstructive sleep apnea) ARF (acute renal failure) Paroxysmal atrial fibrillation (HCC) Pulmonary embolism without acute cor pulmonale (HCC) Resolved Problems: * No resolved hospital problems. * HPI (from H/P on 10/20/2017) The patient is a 61 y.o. male with a significant past medical history of developmental luciana y, anxiety/depression, paroxysmal atrial fibrillation, diabetes mellitus type 2, COPD not on oxygen, TIA, HTN, HLD, recurrent calls to EMS for chest pain (4-5 in the past month), recen tly diagnosis of acute pulmonary embolism on apixaban, who presents with chest pain. The pat ient reports that he developed intermittent chest pain last week and was hospitalized from -10/18/17 in which he was found to have a pulmonary embolism in the LLL without RV strai n. He also had a cardiac stress test which was negative for ischemia. In addition he was fou nd to have proteus UTI and was discharged on Bactrim. The patient reports developing recurre nt chest pain this evening, not pleuritic, described as a sternal chest pain with radiation to his left arm/neck, with "a little bit" of shortness of breath, lightheadedness, and diaph oresis. Had one episode of NV earlier. The patient's pain is worse with exertion but not con sistently. In the ED, the patient was afebrile, with mildly elevated blood pressure, saturat ing 97% on RA. Initial EKG was without ischemic changes and initial troponin was negative. T he patient is allergic to nitroglycerin. Hospital medication was consulted for admission. Hospital Course: Patient was admitted for observation due to this recurrent chest pain. Patient history of P E and evidently has had multiple complaints of chest pain. Patient had stress testing on the eighth of this month which showed no evidence of acute disease that would account for cardi ac chest pain. Since admission patient's vital signs have been stable and has not any additi onal supplemental oxygen. He expresses concerns of chest pain. He was given instructions to follow-up as an outpatient his primary care physician for further care and management of his pulmonary embolus. Told to continue on his medications for anticoagulation and instructed t o take pain medications when he had these episodes of chest pain. Patient was subsequently d ischarged in stable condition to follow up with PCP for further management of patient's nonc ardiac chest pain. 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) use of 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 Obesity, Class I, [...] MD; Location: [facility]; Service: Gastroen terology; Laterality: N/A; ESOPHAGOGASTRODUODENOSCOPY N/A 03/03/2013 Procedure: ESOPHAGOGASTRODUODENOSCOPY; Surgeon: Howie Gibson MD; Location: [facility]; Se rvice: Gastroenterology; Laterality: N/A; HERNIA REPAIR N/A 07/03/2013 Procedure: LAPAROSCOPIC - HERNIA - INCISIONAL; Surgeon: Jevon Vargas DO; Location: [facility] MAIN OR; Service: General; [...] FROZEN SECTION; Surgeon: Sy Fierro MD; Location: [facility] MAIN OR; Service: Plastics; Laterality: Left; forearm UNLISTED PROCEDURE ARTHROSCOPY UPPER GASTROINTESTINAL ENDOSCOPY Discharged Condition: Stable for discharge as stated above. Significant Diagnostic Studies: Xr Chest Pa And Lateral Result Date: 10/20/2017 HISTORY: Chest pain. COMPARISON: 10/13/17. TECHNIQUE: AP and lateral films of the chest. FI NDINGS: The heart size remains normal. I see no evidence of infiltrate or effusion. Density along the cardiac apex consistent with epicardial fat again noted. Mild degenerative changes of the spine. 1. No active intrathoracic disease. Electronically signed by Bhavin Gr MD on 6:54 PM Cta Chest - Aorta Result Date: 10/20/2017 NORAH GR 1955 CTA CHEST 10/20/2017 7:55 PM INDICATION: Chest pain COMPARISON: CT angiogram, 10/13/2017 TECHNIQUE: CT angiogram of the chest with and without IV contrast. 5 mm thick helically acquired axial images are obtained without IV contrast. 0.6 mm thick helical ly acquired axial images are obtained with cardiac gating. Maximum intensity projection milvia nstructed images are performed in the coronal and sagittal plane. 3-D surface rendering of t he aorta is performed by the tissue technologist. Dose reduction techniques were used including automated exposure control, iterative reconstruction technique, and/or automated adjustable mAs based on patient size. 100 mL Isovue-370. FINDINGS: The visualized thyroid is normal. T here is no supraclavicular, mediastinal or hilar lymphadenopathy. Gynecomastia is noted. The heart is normal in size. Minimal pericardial fluid is present. There is no pleural fluid. T he gallbladder is absent. Visualized portions of the liver, spleen, adrenals and pancreas ar e normal. There is no pneumothorax. No focal airspace consolidation is present. There is no pulmonary fibrosis. There is jafs-zv-cwbcpsit degenerative disc disease of the thoracic spin e. There are no acute rib fractures. Angiogram: No aneurysm or dissection is present. The ma in pulmonary artery is normal in caliber. Small embolus along the right lower lobe image 54 series 7 is stable. 1. No aneurysm or dissection. 2. Stable appearance of small filling defect along the righ t lower lobe pulmonary artery. 8: 20 PM Nm Myocardial Perfusion Spect (stress And Rest) Result Date: 10/16/2017 NORAH GR ME MYOCARDIAL PERFUSION SPECT - STRESS AND REST [...] 0.4 mg of regadenoson intravenously according to ashley kyle. Resting heart rate vasiliy from 51 beats/min [...] Using the risk stratification system at our [facility], this examination equates to at least a low risk based on this imaging, arising f rom the criteria below (1). Note that this should be interfaced with clinical and other data , potentially affecting final categorization. 1. [employer] [employer] and [place] [employer] Scientific Statement. Circulation (2008); 118: p 4661-8265 Selection Destin t Definition Low Risk 1.Normal [...] Sravan Gutierrez MD on 10/07 9:58 AM Us Lower Extremity Venous Doppler Bilateral Result [...] on 10/14 4:43 PM Echo Cardiac Adult Limited Result Date: 10/17/2017 Patient Name: NORAH GR Date of : 1955 Performing Physi royer: JOI INGRAM MD VENU CATIONS Evaluate LVOT with [...] Vmean: 1.31 m/s LVOT VTI: 35.95 cm Weatherization Crew Leader: Authenticated by: GINA INGRAM MD Report Date/Time: [...] normal in siz e and function. Discharge Vitals: Vitals: 10/20/17 2350 10/21/17 0325 10/21/17 0817 10/21/17 1112 BP: 173/80 141/68 157/74 125/59 BP Location: Right upper arm Right upper arm Right upper arm Right upper arm Pulse: 60 54 54 Resp: 16 17 20 20 Temp: 97.9 F (36.6 C) 97.5 F (36.4 C) 97.9 F (36.6 C) 98.3 F (36.8 C) TempSrc: Oral Oral Oral Oral SpO2: 98% 96% 99% 98% Weight: 92.5 kg (204 lb) Height: 1.803 m (5' 11") Discharge Exam: General Appearance: A & O x 3, no distress, appears stated age Head: Normocephalic, without obvious abnormality, atraumatic Eyes: [...] Chest Wall: No tenderness or deformity Heart: Regular rate and rhythm, S1 and S2 normal, [...] Affect/ mood normal, behavior and judgement normal LABS: Recent Labs Lab 10/21/1732810/20/17182910/17/17 0522 WBC 11.06* 14.47* 9.58 HGB 12.8* 13.6 12.9* HCT 36.8* 40.5 37.2* PLT 308 309 287 NEUTOPHILPCT 54.78 78.55 51.56 MONOPCT 11.34 7.00 9.01 Recent Labs Lab 10/21/1732810/20/17182910/17/17 0522 NA 138 135 138 K 3.9 4.2 4.0 CL 102 102 101 CO2 27 22* 27 BUN 23 27* 20 CREATININE 1.2 1.4* 1.2 PROT -- 8.3* -- BILITOT -- 0.4 -- ALT -- 26 -- AST -- 29 -- Phosphorus: Recent Labs Lab 10/21/17 0329 PHOS 3.7 Recent Labs Lab 10/21/17 0329 MG 2.0 No results for input(s): AMYLASE in the last 168 hours. No results for input(s): LIPASE in the last 168 hours. No results for input(s): PHART, PO2ART, XAH2CRU, Q5UASFKD, BEART in the last 168 hours. Recent Labs Lab 10/20/17 1830 10/18/17 0536 10/17/17 1944 10/17/17 0522 APTT 26 66* 49* < > 71* INR 1.5 2.2 -- -- 1.4 < > = values in this interval not displayed. No results for input(s): TSH, T3FREE, FREET4 in the last 168 hours. Recent Labs Lab 10/21/17 0329 10/20/17 2353 10/20/17 18310/14/17 1820 CKTOTAL -- -- 103 61 TROPONINI <0.020 <0.020 -- <0.020 CKMBINDEX UNABLE TO CALCULATE UNABLE TO CALCULATE 2.7 7.0 Disposition: home No discharge procedures on file. Follow up: Lou Pereyra Call in 1 week For next available appointment [facility] Emergency Department [address] [place] [id number] Go to If symptoms worsen Lou Pereyra Medication List CHANGE how you take these medications insulin detemir 100 UNIT/ML injection QTY: 10 mL Refills: 12 Commonly known as: LEVEMIR Inject 30 Units into the skin 2 (two) times daily. Inject 45 units subcutaneous at bedtime What changed: how much to take when to take this additional instructions NOVOLOG 100 UNIT/ML injection QTY: 10 mL Refills: 5 Generic drug: insulin aspart INJ 3U SUB-Q TID(AC) AND INJECT SUBCUTANEOUSLY PER SLIDING SCALE 1-70= 2U, 71-100=3U, 101-1 20= 4U, 121-150=5U, 151-180=6U, 181-210= 7U, 211- What changed: See the new instructions. sulfamethoxazole-trimethoprim 800-160 MG per tablet QTY: 12 tablet Refills: 0 Commonly known as: BACTRIM DS Take 1 tablet by mouth every 12 (twelve) hours for 6 days. What changed: when to take this CONTINUE taking these medications amLODIPine 10 MG tablet QTY: 30 tablet Refills: 1 Commonly known as: NORVASC Take 0.5 tablets by mouth daily. antipyrine-benzocaine otic solution Refills: 0 Commonly known as: AURALGAN apixaban 5 MG tablet QTY: 60 tablet [...] mometasone-formoterol fenofibrate 160 MG tablet Refills: 0 gabapentin 100 MG capsule Refills: 0 Commonly known as: NEURONTIN HYDROcodone-acetaminophen 5-325 MG per tablet Refills: 0 Commonly known as: NORCO hydrOXYzine 25 MG capsule Refills: 0 Commonly known as: VISTARIL lamoTRIgine 200 MG tablet Refills: 0 Commonly known as: LAMICTAL kqocsanjg-vrnfjilu-xidpphhop hydroxide-simethicone Refills: 0 lisinopril 40 MG tablet QTY: 60 tablet Refills: 0 Commonly known as: ZESTRIL Take 1 tablet by mouth daily for 30 days. lithium 300 MG CR tablet Refills: 0 Commonly known as: LITHOBID nebivolol 10 MG tablet Refills: 0 Commonly known as: BYSTOLIC nitroGLYCERIN 0.4 MG SL tablet Refills: 0 Commonly known as: NITROSTAT omeprazole 20 MG capsule Refills: 0 Commonly known as: PRILOSEC ondansetron 4 MG disintegrating tablet Refills: 0 Commonly known as: ZOFRAN-ODT PARoxetine 20 MG tablet Refills: 3 Commonly known as: PAXIL polyethylene glycol powder QTY: 527 g Refills: 5 Commonly known as: GLYCOLAX DISSOLVE 17GM IN LIQUID AND DRINK BY MOUTH EVERY DAY pravastatin 80 MG tablet Refills: 0 Commonly known as: PRAVACHOL spironolactone-hydrochlorothiazide 25-25 MG per tablet Refills: 3 Commonly known as: ALDACTAZIDE tamsulosin 0.4 MG capsule Refills: 0 Commonly known as: FLOMAX tiotropium 18 MCG inhalation capsule Refills: 0 Commonly known as: SPIRIVA VENTOLIN HFA IN Refills: 0 You might also be taking other medications not listed above. If you have questions about an y of your other medications, talk to the person who prescribed them or your Primary Care Pro vider. Tj Handley DO 10/21/2017 12:47 PM Discharge took more than 35 minutes, to include final examination, discussion of admission, and preparation of prescriptions, instructions for ongoing care, follow up and dictation of summary. documented in this encou nter Medications at Time of Discharge + + [...] Progress Notes Conversion Transaction, Provider Unknown - 10/21/2017 1:40 PM PDTFormatting of this note m ight be different from the original. Nurse Progress Note by Silvino Almanza RN at 10/21/171339 Author: Silvino Almanza RN Service: (none) Author Type: Registered Nurse Filed: 10/21/171339 Date of Service: 10/21/171339 Status: Signed Chargemaster Analyst: Silvino Almanza RN (Registered Nurse) Discharge instructions reviewed with patient. IV removed. Patient discharged to home via di al-a-ride. No questions or concerns at this time. onver ivana Transaction, Provider Unknown - 10/21/2017 3:49 AM PDT Pharmacy Note by Ema Walker RPH at 10/21/17348 Author: Ema Walker RPH Service: Pharmacy Author Type: Pharmacist Filed: 10/21/17348 Date of Service: 10/21/17348 Status: Signed Chargemaster Analyst: Ema Walker RPH (Pharmacist) Clinical Pharmacy Note: Renal Monitoring Height: 180.3 cm Weight: 92.5 kg Serum creatinine: 1.4 mg/dL (H) 10/20/17 1830 Estimated creatinine clearance: 63.6 mL/min (A) Pharmacy dosing for renal function per Dr. Ruano. Currently there are no medications needing to be adjusted. Pharmacy will continue to monito r for changes in medication orders and in renal function and adjust accordingly. Ema Walker, PharmD 10/21/2017 3:49 AM onver ivana Transaction, Provider Unknown - 10/21/2017 2:13 AM PDT Nurse Progress Note by Ralph Weiss RN at 10/21/17212 Author: Ralph Weiss RN Service: (none) Author Type: Registered Nurse Filed: 10/21/17212 Date of Service: 10/21/17212 Status: Signed Chargemaster Analyst: Ralph Weiss RN (Registered Nurse) End of shift review: Restraints: N/A Blood: N/A Protocols: Completed Parameter Medications: Completed Signed & Held Orders: Released and Reviewed docume nted in this encounter H&P Notes Darrion Ruano MD - 10/20/2017 9:11 PM PDT H&P by Darrion Ruano MD at 10/20/172110 Author: Darrion Ruano MD Service: (none) Author Type: Physician Filed: 10/21/17 045 Date of Service: 10/20/172110 Status: Addendum Chargemaster Analyst: Darrion Ruano MD (Physician) Related Notes: Original Note by Darrion Ruano MD (Physician) filed at 10/21/174 [facility] Service: Hospitalist Admission History & Physical Date of Admission: 10/20/2017 Primary Care Physician: Lou Pereyra Reason for Admission: Chest pain History Obtained From: patient, chart review, ED provider CHIEF COMPLAINT: Chief Complaint Patient presents with Chest Pain Pt has hx of a-fib, rate is 99 bpm, sudden C/P Numbness L arm and L leg HISTORY OF PRESENT ILLNESS The patient is a 61 y.o. male with a significant past medical history of developmental luciana y, anxiety/depression, paroxysmal atrial fibrillation, diabetes mellitus type 2, COPD not on oxygen, TIA, HTN, HLD, recurrent calls to EMS for chest pain (4-5 in the past month), recen maritay diagnosis of acute pulmonary embolism on apixaban, who presents with chest pain. The pat tio reports that he developed intermittent chest pain last week and was hospitalized from -10/18/17 in which he was found to have a pulmonary embolism in the LLL without RV strai n. He also had a cardiac stress test which was negative for ischemia. In addition he was fou nd to have proteus UTI and was discharged on Bactrim. The patient reports developing recurre nt chest pain this evening, not pleuritic, described as a sternal chest pain with radiation to his left arm/neck, with "a little bit" of shortness of breath, lightheadedness, and diaph oresis. Had one episode of NV earlier. The patient's pain is worse with exertion but not con sistently. In the ED, the patient was afebrile, with mildly elevated blood pressure, saturat ing 97% on RA. Initial EKG was without ischemic changes and initial troponin was negative. T he patient is allergic to nitroglycerin. Hospital medication was consulted for admission. ED Medication Administration from 10/20/2017 1818 to 10/20/20172110 Date/Time Order Dose Route Action Action by 10/20/20171947 iopamidol (ISOVUE-370) 76 % injection 100 mL 100 mL Intravenous Given Bradly Rea, RT 10/20/20172016 morphine injection 4 mg 4 mg Intravenous Given Farzaneh Castellanos RN REVIEW OF SYSTEMS As above, a [...] of GE junction Hypercholesterolemia 07/08/2013 Hyperlipidemia Hypertension detention (current) use of 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 Obesity, Class I, [...] MD; Location: [facility]; Service: Gastroen terology; Laterality: N/A; ESOPHAGOGASTRODUODENOSCOPY N/A 03/03/2013 Procedure: ESOPHAGOGASTRODUODENOSCOPY; Surgeon: Howie Gibson MD; Location: [facility]; Se rvice: Gastroenterology; Laterality: N/A; HERNIA REPAIR N/A 07/03/2013 Procedure: LAPAROSCOPIC - HERNIA - INCISIONAL; Surgeon: Jevon Vargas DO; Location: [facility] MAIN OR; Service: General; [...] FROZEN SECTION; Surgeon: Sy Fierro MD; Location: [facility] MAIN OR; Service: Plastics; Laterality: Left; forearm UNLISTED PROCEDURE ARTHROSCOPY UPPER GASTROINTESTINAL ENDOSCOPY Allergies Allergen Reactions Nitroglycerin Hives Vitamin B12 Rash Unable to perform medication reconciliation (patient does not know his current medications) Prior to Admission medications Medication Sig Start Date End Date Taking? Authorizing Provider Albuterol Sulfate (VENTOLIN HFA IN) Inhale 2 puffs into the lungs as needed. 108 mcg/act Historical Provider Eryfm-Z-Vmjqtqprbvptp (BEANO) TABS Take 150 Units by mouth [...] weeks in a row. 10/14/14 TERRY Agosto gabapentin (NEURONTIN) 100 MG capsule Take 100 [...] daily. Inject 45 units subcutaneous at bedtime 10/18/17 Bruno Burnham MD lamoTRIgine (LAMICTAL) 100 MG tablet Take 100 mg by mouth nightly. Take 200 milligrams by m outh at bedtime Historical Provider tyqcbpigm-ywgnzthf-dukfkwgpy hydroxide-simethicone Take 40 mLs by mouth daily [...] daily. Take 1 tablet by mouth at [facility]. Hold for Dizziness and Heart Rate [...] 80 mg by mouth nightly. Historical Provider sulfamethoxazole-trimethoprim (BACTRIM DS) 800-160 MG per tablet Take 1 tablet by mouth cintia ry 12 (twelve) hours for 6 days. 10/18/17 10/24/17 Bruno Burnham MD tamsulosin (FLOMAX) 0.4 MG capsule Take 0.4 mg by mouth 2 (two) times daily. Administer 30 minutes after the same meal each day. Capsules should be swallowed whole; do not crush, chew , or open Historical Provider tiotropium (SPIRIVA) 18 MCG inhalation capsule Inhale 18 mcg into the lungs daily. Histo rical Provider Social History Social History Marital status: Spouse [...] Sister Heart Problems Brother PHYSICAL EXAM BP 146/77 | Pulse 71 | Temp 97.6 F (36.4 C) (Oral) | Resp 20 | Ht 1.803 m (5' 10.98 ") | Wt 92.5 kg (204 lb) | SpO2 97% | BMI 28.47 kg/m Constitutional: Well nourished, obese man, NAD, sitting up in bed HEENT: Normocephalic and atraumatic. Nose normal. Oropharynx is clear and moist. Conjunctivae and EOM are normal. Pupils are equal, round, and reactive to light. No scleral icterus. Neck: Normal range of motion. Neck supple. No JVD present. No thyromegaly present. No cervical adenopathy. Cardiovascular: Normal rate, regular rhythm, normal heart sounds with S1 and S2, and intact distal pulses. Exam reveals no gallop and no friction rub. No murmur heard. Mid sternal t enderness with palpation, not specifically over the chostrochondral joints. Pulmonary/Chest: Effort normal and breath sounds normal. No stridor. No respiratory distres s. No wheezes. no rales. exhibits no tenderness. Abdominal: Soft. Bowel sounds are normal. Exhibits no distension and no mass. Very mild dis comfort in the RLQ. There is no rebound and no guarding. Extremities/Musculoskeletal: Normal range of motion.exhibits no tenderness. Exhibits no ed dayana, cyanosis, or clubbing Neurological: CN2-12 grossly intact, strength/sensation grossly intact, nonfocal Skin: Skin is warm and dry. No rash noted. No erythema. No pallor. DATA Results for orders placed or performed during the hospital encounter of 10/20/17 (from the past 24 hour(s)) Cardiac Panel Collection Time: 10/20/17 6:30 PM Result Value Ref Range WBC 14.47 (H) 3.80 - 11.00 K/uL RBC 4.85 4.20 - 5.70 M/uL HGB 13.6 13.2 - 17.0 g/dL HCT 40.5 39.0 - 50.0 % MCV 83.5 80.0 - 100.0 fl MCH 28.0 27.0 - 34.0 pg MCHC 33.6 32.0 - 35.5 g/dL RDW SD 45.5 37 - 53 fl PLT 309 150 - 400 K/uL MPV 7.8 fl DIFF TYPE AUTOMATED NEUTROPHILS 78.55 % LYMPHOCYTES 13.31 % MONOCYTES 7.00 % EOSINOPHILS 0.22 % BASOPHILS 0.92 % NEUTROPHILS ABS 11.37 (H) 1.90 - 7.40 K/uL LYMPHOCYTES ABS 1.93 1.00 - 3.90 K/uL MONOCYTES ABS 1.01 (H) 0.00 - 0.80 K/uL EOSINOPHILS ABS 0.03 0.00 - 0.50 K/uL BASOPHILS ABS 0.13 (H) 0.00 - 0.10 K/uL SODIUM 135 135 - 145 mmol/L POTASSIUM 4.2 3.5 - 4.9 mmol/L CHLORIDE 102 99 - 109 mmol/L CO2 22 (L) 23 - 32 mmol/L ANION GAP AGAP 15 5 - 20 mmol/L GLUCOSE 251 (H) 65 - 99 mg/dL BUN 27 (H) 8 - 25 mg/dL CREATININE 1.4 (H) 0.70 - 1.30 mg/dL BUN/CREAT 19 CALCIUM 9.6 8.5 - 10.5 mg/dL TOTAL PROTEIN 8.3 (H) 6.3 - 8.2 g/dL Albumin 3.5 3.3 - 4.8 g/dL GLOBULIN 4.8 1.3 - 4.9 g/dL A/G 0.7 (L) 1.0 - 2.4 TBIL 0.4 0.1 - 1.5 mg/dL ALK PHOS 99 35 - 115 U/L AST 29 10 - 45 U/L ALT 26 10 - 65 U/L EGFR 51 (L) >60 mL/min/1.73m2 CPK 103 55 - 400 U/L INR 1.5 APTT 26 23 - 32 seconds MMB 2.8 0.5 - 3.6 ng/mL CK-MB Index 2.7 POC cardiac troponin Collection Time: 10/20/17 6:32 PM Result Value Ref Range POC CARDIAC TROPONIN 0.00 0.00 - 0.10 ng/mL Results No results found for the last 72 hours. Xr Chest Pa And Lateral Result Date: 10/20/2017 1. No active intrathoracic disease. Electronically signed by Bhavin Gr MD on 6:54 PM Cta Chest - Aorta Result Date: 10/20/2017 1. No aneurysm or dissection. 2. Stable appearance of small filling defect along the righ t lower lobe pulmonary artery. 8: 20 PM Nm Myocardial Perfusion Spect (stress And Rest) Result Date: 10/16/2017 1. No reversible defects to suggest acute left ventricular ischemia. 2. Left ventricular stress ejection fraction is calculated at 62%. Using the risk stratification system at our [facility], this examination equates to at least a low risk based on this imaging, arising f rom the criteria below (1). Note that this should be interfaced with clinical and other data , potentially affecting final categorization. 1. [place] [employer] and [employer] Scientific Statement. Circulation (2008); 118: p 1221-2316 Selection Destin t Definition Low Risk 1.Normal [...] Extremity Venous Doppler Bilateral Result Date: 10/14/2017 No evidence of deep venous thrombosis Electronically signed by Elias Underwood MD on 10/14 4:43 PM Echo Cardiac Adult Complete Result Date: 10/14/2017 1. Left ventricular systolic function is hyperdynamic [...] Echo Cardiac Adult Limited Result Date: 10/17/2017 1. A limited 2-dimensional transthoracic echocardiogram with [...] is normal in siz e and function. EKG NSR, no ST-T changes ASSESSMENT & PLAN Principal Problem: Chest pain Active Problems: Diabetes mellitus, type 2 HTN (hypertension) WARD (obstructive sleep apnea) ARF (acute renal failure) Paroxysmal atrial fibrillation (HCC) Pulmonary embolism without acute cor pulmonale (HCC) # Chest pain, atypical with palpable tenderness over the sternum, but no costochondral tend erness. Recent stress test was negative for ischemia. - EKG without ischemic changes - Trend troponins - Allergic to nitroglycerin - Tylenol prn; [place]; IV morphine - Topical lidoderm patch # Recent history of acute pulmonary embolism - Continue apixaban # Leukocytosis, unclear etiology - Procalcitonin <0.05 and CRP 0.7 - Check urinalysis # Acute kidney injury, possible prerenal azotemia given increased Bun:Cr ratio - Baseline Cr 1.1 - Gentle hydration overnight # Paroxsymal atrial fibrillation - Telemetry, replete Mg and K - On apixaban - Last ECHO 10/17 with LVEF >70% # Diabetes mellitus type 2 - High dose SSI - Dose reduced detemir to 30 units nightly (from 40 units) # WARD - CPAP at night # Hypertension, controlled - Amlodipine 5 mg qd - Lisinopril 40 mg qd - Nebivolol 10 mg qd # Developmental delay/ Depression/ Anxiety - Continue aripiprazole - Clonazepam 1 mg qd - [place] 300 mg bid - Paroxetine 40 mg qd # Hyperlipidemia - Continue fenofibrate - Continue statin # Proteus UTI - Continue bactrim (end on 10/24) for a total 7 day course DVT prophylaxis: anticoagulated GI prophylaxis: not indicated Code Status: Full Primary Care Physician: Lou Ruano MD 10/20/2017 9:39 PM documented in this enc ounter ED Notes Conversion Transaction, Provider Unknown - 10/20/2017 8:54 PM PDTFormatting of this note m ight be different from the original. ED Notes by Farzaneh Castellanos RN at 10/20/172053 Author: Farzaneh Castellanos RN Service: (none) Author Type: Registered Nurse Filed: 10/20/172054 Date of Service: 10/20/172053 Status: Signed Chargemaster Analyst: Farzaneh Castellanos RN (Registered Nurse) Into answer call light. Patient states, "I need to talk to the doctor again because I can' t go home. I live by myself and my chest pain is coming back again and I am afraid somethin g will happen to me in the night." notified. Farzaneh Castellanos RN 10/20/172054 Jose Espino DO - 10/20/2017 6:18 PM PDT ED Provider Notes by Jose Wagner DO at 10/20/171817 Author: Jose Wagner DO Service: Emergency Department Author Type: Physician Filed: 10/21/17 0100 Date of Service: 10/20/171817 Status: Signed Chargemaster Analyst: Jose Wagner DO (Physician) [facility] Department of Emergency Medicine 6:18 PM History of Present Illness Patient Identification Norah Gr is a 61 y.o. male. Patient information was obtained from patient. History/Exam limitations: none. Patient presented to the Emergency Department by: [facility] 1222 History of Presenting Illness The patient is a 61 y.o. male presenting with Chief Complaint Patient presents with Chest Pain Pt has hx of a-fib, rate is 99 bpm, sudden C/P Numbness L arm and L leg Location- Chest Onset- Today Duration- Consistent Severity/Character- Moderate, pain is 6/10 Worse with- Nothing Better with- Nothing Radiation- To left extremities. Denies- Fever, diarrhea, dizziness, or any other symptoms at this time. Admits- Nausea, left arm numbness, left leg numbness, and SOB Context-Patient states he was at the gas station when he began to have left sided chest allen n and numbness to his left extremities. Patient reports he was just admitted for the same co mplaint. Patient does have a history of A-fib and diabetes. Patient had a stress test 018 that resulted normal. PCP: Lou Pereyra Specialists: Past Medical History Diagnosis Date Acute [...] of GE junction Hypercholesterolemia 07/08/2013 Hyperlipidemia Hypertension detention (current) use of 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 Obesity, Class I, [...] MD; Location: [facility]; Service: Gastroen terology; Laterality: N/A; ESOPHAGOGASTRODUODENOSCOPY N/A 03/03/2013 Procedure: ESOPHAGOGASTRODUODENOSCOPY; Surgeon: Howie Gibson MD; Location: [facility] END[facility]; Se rvice: Gastroenterology; Laterality: N/A; HERNIA REPAIR N/A 07/03/2013 Procedure: LAPAROSCOPIC - HERNIA - INCISIONAL; Surgeon: Jevon Vargas DO; Location: [facility] MAIN OR; Service: General; [...] FROZEN SECTION; Surgeon: Sy Fierro MD; Location: [facility] MAIN OR; Service: Plastics; Laterality: Left; forearm UNLISTED PROCEDURE ARTHROSCOPY UPPER GASTROINTESTINAL ENDOSCOPY Prior to Admission medications Medication Sig Start Date End Date Taking? Authorizing Provider Albuterol Sulfate (VENTOLIN HFA IN) Inhale 2 puffs into the lungs as needed. 108 mcg/act Historical Provider Jgdgz-G-Yitmaujfwmime (BEANO) TABS Take 150 Units by mouth [...] weeks in a row. 10/14/14 TERRY Agosto gabapentin (NEURONTIN) 100 MG capsule Take 100 [...] daily. Inject 45 units subcutaneous at bedtime 10/18/17 Bruno Burnham MD lamoTRIgine (LAMICTAL) 100 MG tablet Take 100 mg by mouth nightly. Take 200 milligrams by m outh at bedtime Historical Provider rotgfspxc-jfvxrzey-fvqrmttlk hydroxide-simethicone Take 40 mLs by mouth daily [...] daily. Take 1 tablet [facility] at [facility]. Hold for Dizziness and Heart Rate [...] 80 mg by mouth nightly. Historical Provider sulfamethoxazole-trimethoprim (BACTRIM DS) 800-160 MG per tablet Take 1 tablet by mouth cintia ry 12 (twelve) hours for 6 days. 10/18/17 10/24/17 Bruno Burnham MD tamsulosin (FLOMAX) 0.4 MG capsule Take [...] Number of children: 1 Years of education: [employer]. [employer] Occupational History disabled Social History Main Topics [...] sore throat CV/Resp: Positive for chest pain and SOB. Negative for cough GI: Positive for nausea. Negative for abdominal pain, vomiting, or diarrhea : Negative for urinary problems Musculoskeletal: Positive for numbness to left extremities. Negative for back pain, joint pain Skin: Negative for rash Neuro/Psych: Negative for headache Endo/heme/Lymph: Negative for swollen lymph nodes, easy bruising Physical Exam BP 154/74 (BP Location: Right upper arm) | Pulse 90 | Temp 98.4 F (36.9 C) (Oral) | Resp 16 | Ht 1.803 m (5' 10.98") | Wt 92.5 kg (204 lb) | SpO2 95% | BMI 28.47 kg/m Vital signs interpretation: Hypertension, otherwise normal. Pulse Oximetry interpretation: Normal General: Alert, in no apparent distress Eyes: Normal inspection, pupils equal and round, non-icteric ENT: Ears normal Nose normal Moist mucous membranes Oropharynx clear Neck: Normal inspection Supple Cardiovasc: Rate and rhythm normal No murmurs 2+ pulses all 4 extremities Respiratory: Breath sounds normal bilaterally No rales, wheezing or rhonchi Abdomen: Soft, non-tender, non-distended No guarding or rebound No peritoneal sign Back: Normal inspection Extremities: Trace lower extremity edema. No swelling or redness Skin: Color normal Warm and dry No rash Neuro: Alert, no AMS No gross motor/sensory deficits Moving all extremities Medical Decision Making and Emergency Department Course ED Department Course 61 y.o. male presents to the ED with a chief complaints of chest pain, Recently admitted f or same. Will order labs, EKG and reevaluate the patient. Review of vitals Vitals: 10/20/17 2350 BP: 173/80 Pulse: 60 Resp: 16 Temp: 97.9 F (36.6 C) SpO2: 98% 8:20 PM All imaging resulted unremarkable. Cardiac panel resulted leukocytosis (14.47) low CO2 level (22) hyperglycemia (251) elevated BUN levels (27) low EGFR (51) Cardiac troponin r esulted normal. 8:28 PM Patient reevaluation. Patient is stable and feeling better at this time. I discusse d all ED results and my clinical impression with the patient. Patient is ready for discharge . I advised patient to follow up with a PCP and we discussed the emergent signs and symptoms that would necessitate a return to ED. The patient understands and agrees with the plan. Charly pereyra questions and concerns addressed. 9:05 PM Nurse reports the patient reported that he wants to be admitted because he keeps kelley ving chest pain and is scarred to go home, since he lives alone. 9:[address] Ruano, who accepts the patient for admission. DDx: I considered ACS, PE, pneumonia, pneumothorax, pericardial effusion, pericardial tampo nade, costochondritis, esophageal spasm, GERD, among others in my differential and workup wh ich I discussed with the pt. Pt with chest pain, negative stress test recently, admitted to medicine for further workup and observation. Medications sodium chloride 0.9 % flush 10 mL (not administered) PARoxetine (PAXIL) tablet 40 mg (not administered) fenofibrate tablet 160 mg (not administered) pravastatin (PRAVACHOL) tablet 80 mg (not administered) tiotropium (SPIRIVA) inhalation capsule 18 mcg (not administered) calcium carbonate (TUMS) chewable tablet 1,000 mg (not administered) ARIPiprazole (ABILIFY) tablet 10 mg (not administered) clonazePAM (KlonoPIN) tablet 1 mg (not administered) lamoTRIgine (LaMICtal) tablet 100 mg (not administered) tamsulosin (FLOMAX) capsule 0.4 mg (not administered) lithium (LITHOBID) CR tablet 300 mg (not administered) amLODIPine (NORVASC) tablet 5 mg (not administered) lisinopril (ZESTRIL) tablet 40 mg (not administered) apixaban (ELIQUIS) tablet 5 mg (not administered) sulfamethoxazole-trimethoprim (BACTRIM DS) 800-160 MG per tablet 1 tablet (not administered ) gabapentin (NEURONTIN) capsule 100 mg (not administered) pantoprazole (PROTONIX) EC tablet 40 mg (not administered) dextrose 10 % infusion (not administered) dextrose 50 % solution 12 mL (not administered) glucagon (GLUCAGEN) injection 0.5 mg (not administered) dextrose 50 % solution 25 mL (not administered) glucagon (GLUCAGEN) injection 1 mg (not administered) insulin lispro (human) (HUMALOG) injection 0-14 Units (not administered) insulin lispro (human) (HUMALOG) injection 0-7 Units (not administered) acetaminophen (TYLENOL) tablet 650 mg (not administered) Or acetaminophen (TYLENOL) suppository 650 mg (not administered) ondansetron (ZOFRAN-ODT) disintegrating tablet 4 mg (not administered) Or ondansetron (ZOFRAN) injection 4 mg (not administered) polyethylene glycol (GLYCOLAX) packet 17 g (not administered) sodium chloride 0.9 % infusion ( Intravenous New Bag 10/20/172233) Lidocaine (SALONPAS) 4 % patch 1 patch (not administered) iopamidol (ISOVUE-370) 76 % injection 100 mL (100 mLs Intravenous Given 10/20/171947) morphine injection 4 mg (4 mg Intravenous Given 10/20/172016) Records Reviewed Old medical records. Nursing notes. Previous ED visits for similar and unrelated complaints. Laboratory Evaluation Results Procedure Component Value Ref Range Date/Time Procalcitonin [[id number]] Collected: 10/20/171829 Order Status: Completed Updated: 10/20/172228 PROCALCITONIN <0.05 <0.5 ng/mL C-reactive protein [[id number]] (Abnormal) Collected: 10/20/171829 Order Status: Completed Updated: 10/20/172220 CRP 0.7 (H) <0.5 mg/dL Sedimentation rate, automated [[id number]] (Abnormal) Collected: 10/20/171829 Order Status: Completed Updated: 10/20/172208 ESR 36 (H) 0 - 20 mm/Hr Cardiac Panel [[id number]] (Abnormal) Collected: 10/20/171829 Order Status: Completed Updated: 10/20/171904 WBC 14.47 (H) 3.80 - 11.00 K/uL RBC 4.85 4.20 - 5.70 M/uL HGB 13.6 13.2 - 17.0 g/dL HCT 40.5 39.0 - 50.0 % MCV 83.5 80.0 - 100.0 fl MCH 28.0 27.0 - 34.0 pg MCHC 33.6 32.0 - 35.5 g/dL RDW SD 45.5 37 - 53 fl PLT 309 150 - 400 K/uL MPV 7.8 fl DIFF TYPE AUTOMATED NEUTROPHILS 78.55 % LYMPHOCYTES 13.31 % MONOCYTES 7.00 % EOSINOPHILS 0.22 % BASOPHILS 0.92 % NEUTROPHILS ABS 11.37 (H) 1.90 - 7.40 K/uL LYMPHOCYTES ABS 1.93 1.00 - 3.90 K/uL MONOCYTES ABS 1.01 (H) 0.00 - 0.80 K/uL EOSINOPHILS ABS 0.03 0.00 - 0.50 K/uL BASOPHILS ABS 0.13 (H) 0.00 - 0.10 K/uL SODIUM 135 135 - 145 mmol/L POTASSIUM 4.2 3.5 - 4.9 mmol/L CHLORIDE 102 99 - 109 mmol/L CO2 22 (L) 23 - 32 mmol/L ANION GAP AGAP 15 5 - 20 mmol/L GLUCOSE 251 (H) 65 - 99 mg/dL BUN 27 (H) 8 - 25 mg/dL CREATININE 1.4 (H) 0.70 - 1.30 mg/dL BUN/CREAT 19 CALCIUM 9.6 8.5 - 10.5 mg/dL TOTAL PROTEIN 8.3 (H) 6.3 - 8.2 g/dL Albumin 3.5 3.3 - 4.8 g/dL GLOBULIN 4.8 1.3 - 4.9 g/dL A/G 0.7 (L) 1.0 - 2.4 TBIL 0.4 0.1 - 1.5 mg/dL ALK PHOS 99 35 - 115 U/L AST 29 10 - 45 U/L ALT 26 10 - 65 U/L EGFR 51 (L) >60 mL/min/1.73m2 CPK 103 55 - 400 U/L INR 1.5 APTT 26 23 - 32 seconds MMB 2.8 0.5 - 3.6 ng/mL CK-MB Index 2.7 POC cardiac troponin [[id number]] Collected: 10/20/171831 Order Status: Completed Updated: 10/20/171856 POC CARDIAC TROPONIN 0.00 0.00 - 0.10 ng/mL I personally reviewed the lab results and they have been posted to the chart. Pertinent po sitive and negative findings have been addressed appropriately and I have discussed any abno rmal labs with the patient. Radiology and EKG Evaluation ====EKG Interpretation==== Time: 1823 Rate: 84 Rhythm: Sinus Raymond: Normal Intervals: Left atrial enlargement ST: Normal Other: None Compared to 10/13/2017 there is no change Overall: Nonspecific EKG Interpreted by Jose Wagner D.O. Rhythm strip analysis: Normal Sinus rhythm. ====EKG Interpretation==== Time: 2012 Rate: 63 Rhythm: Sinus Raymond: Normal Intervals: Normal ST: Nonspecific T wave changes Compared to 10/13/2017 there is no change Overall: Nonspecific EKG Interpreted by Jose Wagner D.O. Rhythm strip analysis: Normal Sinus rhythm. Imaging Results CTA Chest - Aorta (Final result) Result time 10/20/17 20:20:43 Final result by Kishan Ji MD (10/20/17 20:20:43) Impression: 1. No aneurysm or dissection. 2. Stable appearance of small filling defect along the right lower lobe pulmonary artery. Narrative: NORAH GR 1955 CTA CHEST 10/20/2017 7:55 PM INDICATION: Chest pain COMPARISON: CT angiogram, 10/13/2017 TECHNIQUE: CT angiogram of the chest with and without IV contrast. 5 mm thick helically acq uired axial images are obtained without IV contrast. 0.6 mm thick helically acquired axial i mages are obtained with cardiac gating. Maximum intensity projection reconstructed images ar e performed in the coronal and sagittal plane. 3-D surface rendering of the aorta is perform ed by the tissue technologist. Dose reduction techniques were used including automated exposure control, iterative reconstruction technique, and/or automated adjustable mAs based on patie nt size. 100 mL Isovue-370. FINDINGS: The visualized thyroid is normal. There is no supraclavicular, mediastinal or hil ar lymphadenopathy. Gynecomastia is noted. The heart is normal in size. Minimal pericardial fluid is present. There is no pleural fluid. The gallbladder is absent. Visualized portions of the liver, spleen, adrenals and pancreas are normal. There is no pneumothorax. No focal airspace consolidation is present. There is no pulmonary fibrosis. There is nigs-gi-voeycwuc degenerative disc disease of the thoracic spine. There are no acu te rib fractures. Angiogram: No aneurysm or dissection is present. The main pulmonary artery is normal in amadou iber. Small embolus along the right lower lobe image 54 series 7 is stable. XR Chest PA and Lateral (Final result) Result time 10/20/17 18:54:37 Final result by Bhavin Gr MD (10/20/17 18:54:37) Impression: 1. No active intrathoracic disease. Narrative: HISTORY: Chest pain. COMPARISON: 10/13/17. TECHNIQUE: AP and lateral films of the chest. FINDINGS: The heart size remains normal. I see no evidence of infiltrate or effusion. Density along t he cardiac apex consistent with epicardial fat again noted. Mild degenerative changes of the spine. ED Diagnoses Final diagnoses Chest pain in adult Chronic kidney disease, unspecified CKD stage Disposition: ED Disposition ED Disposition Condition Comment Admit/Observation Bed request special needs: none Diagnosis?: chest pain Follow-up Information Follow up With Specialties Details Why Contact Carine Pereyra Call in 1 week For next available appointment [facility] Emergency Department Emergency Medicine Go to If symptoms worsen [address] [place] [address] Discharge Medications: Current Discharge Medication List Procedures Additional Documentation Procedures Attending Provider Note: IDarrion MD personally performed the services described in this documentation, as scribed by Justine Gr in my presence, and it is both accurate and c omplete. Chart Reviewed and Completed: 10/21/2017 1:00 AM Scribe: Kari Forrest, scribing for and in the presence of Darrion Ruano MD. Signed by: Kari Mcdonough 10/20/2017 8:31 PM Jose Wagner DO 10/21/17 0100 onversion Merchant saction, Provider Unknown - 10/20/2017 6:18 PM PDTFormatting of this note might be differen t from the original. ED Notes by Leanna Cheng RN at 10/20/171817 Author: Leanna Cheng RN Service: (none) Author Type: Registered Nurse Filed: 10/20/171817 Date of Service: 10/20/171817 Status: Signed Chargemaster Analyst: Leanna Cheng RN (Registered Nurse) Bed: 12 Expected date: Expected time: Means of arrival: Comments: 1222 Leanna Cheng RN 10/20/178 docume nted in this encounter Miscellaneous Notes Plan of Care - Conversion Transaction, Provider Unknown - 10/21/2017 9:56 AM PDT Plan of Care by Silvino Almanza RN at 10/21/17955 Author: Silvino Almanza RN Service: (none) Author Type: Registered Nurse Filed: 10/21/17955 Date of Service: 10/21/17955 Status: Signed Chargemaster Analyst: Silvino Almanza RN (Registered Nurse) Problem: Safety Goal: Patient [...] and non-skid footwear provided. Outcome: Progressing Pt AOx4. Uses call light appropriately. VSS. Non-skid socks applied. Bed alarm set. lan o f Care - Conversion Transaction, Provider Unknown - 10/21/2017 2:05 AM PDTFormatting of thi s note might be different from the original. Plan of Care by Ralph Weiss RN at 10/21/17204 Author: Ralph Weiss RN Service: (none) Author Type: Registered Nurse Filed: 10/21/17204 Date of Service: 10/21/17204 Status: Signed Chargemaster Analyst: Ralph Weiss RN (Registered Nurse) Problem: Safety Goal: Patient [...] policy, and non-skid footwear provided. Outcome: Progressing ID band on, bed in lowest position, call light within reach, non-skid footwear applied iscel laneous - Conversion Transaction, Provider Unknown - 10/20/2017 11:02 PM PDTFormatting of th is note might be different from the original. Medication History by Joe Babcock RPH at 10/20/172301 Author: Joe Babcock RPH Service: Pharmacy Author Type: Pharmacist Filed: 10/20/172301 Date of Service: 10/20/172301 Status: Signed Chargemaster Analyst: oJe Babcock RPH (Pharmacist) Rx Admission Medication History Note Pharmacy is unable to obtain best possible medication history at this time. Patient is not able to provide medication information as he states all of the oral medications are provided in a bubble pack. Outpatient pharmacy is not open at this time. Patient was able to confirm insulin and adjusted these on the [employer] list. No family available at the time of med rec. Please follow up in the morning and see if renetta lucero can bring in the bubble packs. Thanks Joe Babcock RPH 10/20/2017 11:00 PM >> Kimberlyn Baig CPhT 10/20/2017 22:29 Rx Admission Medication History Note Pharmacy is unable to obtain best possible medication history at this time. Patient was not able to verify his medications stating they are pre bubble packed. I asked him about his in sulins as in how he takes them to I adjusted those on his list I asked him about a previousl y filled clonidine patch and he states that he stopped using them but is taking the pill for m. I was not able to see current fill for it. Thanks Kimberlyn Baig CPhT 10/20/2017 10:26 PM docume nted in this encounter Plan of Treatment +--------+---------+ + + + | Date | Type | Specialty | Care Team | Description | +--------+---------+ + + + | 09/10/ | Office | Geriatric Medicine | Mireya Pack, | | | 2019 | Visit | | [employer] [address] | | | | | | [address] [place], | | | | | | [place] [address] | | | | | | [phone] | | | | | | | | +--------+---------+ + + + | 09/29/ | Office | Urology | Mireya Pack, | | | 2020 | Visit | | [employer] [address] | | | | | | [facility] [address] [place], | | | | | | [place] [address] | | | | | | [phone] | | | | | | | | | | | | Toy Wild, DO | | | | | | [address] | | | | | | [place] [address] | | | | | | [phone] | | | | | | | | +--------+---------+ + + + documented as of this encounter Procedures + +--------+ + + + | Procedure Name | Priori | Date/Time | Associated Diagnosis | Comments | | | ty | | | | + +--------+ + + + | POC GLUCOSE | Routin | 10/21/2017 | | Results for this | | | e | 11:11 AM | | procedure are in the | | | | PDT | | results section. | + +--------+ + + + | POC GLUCOSE | Routin | 10/21/2017 | | Results for this | | | e | 6:13 AM | | procedure are in the | | | | PDT | | results section. | + +--------+ + + + | URINALYSIS WITH | Routin | 10/21/2017 | | Results for this | | MICROSCOPIC WITH | e | 5:52 AM | | procedure are in the | | CULTURE IF INDICATED | | PDT | | results section. | + +--------+ + + + | CULTURE, URINE | STAT | 10/21/2017 | | Results for this | | | | 5:52 AM | | procedure are in the | | | | PDT | | results section. | + +--------+ + + + | ECG 12 LEAD | Routin | 10/21/2017 | | Results for this | | | e | 4:19 AM | | procedure are in the | | | | PDT | | results section. | + +--------+ + + + | EXTERNAL LAB: CBC | Routin | 10/21/2017 | | Results for this | | | e | 3:29 AM | | procedure are in the | | | | PDT | | results section. | + +--------+ + + + | TROPONIN I | Routin | 10/21/2017 | | Results for this | | | e | 3:29 AM | | procedure are in the | | | | PDT | | results section. | + +--------+ + + + | CK-MB | Routin | 10/21/2017 | | Results for this | | | e | 3:29 AM | | procedure are in the | | | | PDT | | results section. | + +--------+ + + + | PHOSPHORUS | Routin | 10/21/2017 | | Results for this | | | e | 3:29 AM | | procedure are in the | | | | PDT | | results section. | + +--------+ + + + | MAGNESIUM | Routin | 10/21/2017 | | Results for this | | | e | 3:29 AM | | procedure are in the | | | | PDT | | results section. | + +--------+ + + + | BASIC METABOLIC | Routin | 10/21/2017 | | Results for this | | PANEL | e | 3:29 AM | | procedure are in the | | | | PDT | | results section. | + +--------+ + + + | TROPONIN I | Routin | 10/20/2017 | | Results for this | | | e | 11:53 PM | | procedure are in the | | | | PDT | | results section. | + +--------+ + + + | CK-MB | Routin | 10/20/2017 | | Results for this | | | e | 11:53 PM | | procedure are in the | | | | PDT | | results section. | + +--------+ + + + | ECG 12 LEAD | Routin | 10/20/2017 | | Results for this | | | e | 8:13 PM | | procedure are in the | | | | PDT | | results section. | + +--------+ + + + | CT ANGIOGRAM CHEST W | Routin | 10/20/2017 | | Results for this | | CONTRAST | e | 7:55 PM | | procedure are in the | | | | PDT | | results section. | + +--------+ + + + | XR CHEST 2 VIEWS | Routin | 10/20/2017 | | Results for this | | | e | 6:49 PM | | procedure are in the | | | | PDT | | results section. | + +--------+ + + + | HISTORICAL LAB PANEL | Routin | 10/20/2017 | | Results for this | | RESULT | e | 6:30 PM | | procedure are in the | | | | PDT | | results section. | + +--------+ + + + | PROCALCITONIN, SERUM | Routin | 10/20/2017 | | Results for this | | | e | 6:30 PM | | procedure are in the | | | | PDT | | results section. | + +--------+ + + + | SEDIMENTATION RATE, | Routin | 10/20/2017 | | Results for this | | AUTOMATED | e | 6:30 PM | | procedure are in the | | | | PDT | | results section. | + +--------+ + + + | C-REACTIVE PROTEIN | Routin | 10/20/2017 | | Results for this | | | e | 6:30 PM | | procedure are in the | | | | PDT | | results section. | + +--------+ + + + | ECG 12 LEAD | Routin | 10/20/2017 | | Results for this | | | e | 6:23 PM | | procedure are in the | | | | PDT | | results section. | + +--------+ + + + documented in this encounter Results POC Glucose (10/21/2017 11:11 AM PDT) + + + + + + | Component | Value | Ref Range | Performed | Pathologist | | | | | At | Signature | + + + + + + | Glucose, | 345 (H)Comment: Testing | 65 - 99 mg/dL | EXTERNAL | | | Fingerstick | performed at [facility];[address] | | LAB | | | | [address];[place] | | | | | | [address] | | | | + + + + + + + + | Specimen | + + | | + + + +---------+ + + | Performing | Address | City/State/Zipcode | Phone Number | | Organization | | | | + +---------+ + + | EXTERNAL LAB | | | | + +---------+ + + POC Glucose (10/21/2017 6:13 AM PDT) + + + + + + | Component | Value | Ref Range | Performed | Pathologist | | | | | At | Signature | + + + + + + | Glucose, | 149 (H)Comment: Testing | 65 - 99 mg/dL | EXTERNAL | | | Fingerstick | performed at [facility];[address] | | LAB | | | | [address] Maher;[place] | | | | | | [address] | | | | + + + + + + + + | Specimen | + + | | + + + +---------+ + + | Performing | Address | City/State/Zipcode | Phone Number | | Organization | | | | + +---------+ + + | EXTERNAL LAB | | | | + +---------+ + + Culture, Urine (10/21/2017 5:52 AM PDT) + + | Specimen | + + | | + + + + + | Narrative | Performed At | + + + | Specimen Description URINE, COLLECTION NOT | EXTERNAL LAB | | GIVEN CULTURE 10,000 TO | | | 50,000 CFU/ML | | | MIXED GRAM POSITIVE DIDI | | | NO FURTHER WORKUP | | + + + + +---------+ + + | Performing | Address | City/State/Zipcode | Phone Number | | Organization | | | | + +---------+ + + | EXTERNAL LAB | | | | + +---------+ + + Urinalysis with Microscopic with Culture if Indicated (10/21/2017 5:52 AM PDT) + + + + [...] + + + + | Specific | 1.026 | 1.002 - 1.030 | EXTERNAL | | | [place], | | | LAB | | | Urine | | | | | + + + + + + | Leukocyte | SMALL (A) | | EXTERNAL | | | [...] + + + | WBC, UA | 26-49 | 0 - 5 /hpf | EXTERNAL | | | | | | LAB | | + + + + + + | RBC, UA | 3-5 | 0 - 2 /hpf | EXTERNAL | | | | | | LAB | | + + + + + + | Epithelial | 11-15 | /lpf | EXTERNAL | | | Cells | | | LAB | | + + + + + + | Bacteria, | NONE SEEN | | EXTERNAL | | | UA | | | LAB | | + + + + + + | Mucus, | 1+Comment: Testing | | EXTERNAL | | | Urine | performed at [facility];[address] | | LAB | | | | [address]her;[place] | | | | | | [address] | | | | + + + + + + + + | Specimen | + + | | + + + +---------+ + + | Performing | Address | City/State/Zipcode | Phone Number | | Organization | | | | + +---------+ + + | EXTERNAL LAB | | | | + +---------+ + + ECG 12 lead (10/21/2017 4:19 AM PDT) + + + + + + | Component | Value | Ref Range | Performed | Pathologist | | | | | At | Signature | + + + + + + | DIAGNOSIS: | Sinus bradycardiaMinimal | | EXTERNAL | | | | voltage criteria for | | LAB | | | | LVH, may be normal | | | | | | variantNonspecific ST | | | | | | and T wave | | | | | | abnormalityAbnormal | | | | | | ECGWhen compared with | | | | | | ECG of 20-OCT-2017 | | | | | | 20:13,No significant | | | | | | change was | | | | | | foundConfirmed by STEPHEN | | | | | | ROSARIO ESPAÑA ([id number]) on | | | | | | 10/21/2017 12:29:54 PM | | | | + + + + + + + + | Specimen | + + | | + + + + + | Narrative | Performed At | + + + | Historically converted procedure from [facility] | EXTERNAL LAB | + + + + +---------+ + + | Performing | Address | City/State/Zipcode | Phone Number | | Organization | | | | + +---------+ + + | EXTERNAL LAB | | | | + +---------+ + + CK-MB (10/21/2017 3:29 AM PDT) + + + + + + | Component | Value | Ref Range | Performed | Pathologist | | | | | At | Signature | + + + + + + | CK-MB | 4.2 (H) | 0.5 - 3.6 ng/mL | EXTERNAL | | | | | | LAB | | + + + + + + | CK-MB Index | UNABLE TO | | EXTERNAL | | | | CALCULATEComment: | | LAB | | | | Testing performed at | | | | | | [facility];[address] [facility] | | | | | | [facility];[place] [address] | | | | + + + + + + + + | Specimen | + + | | + + + +---------+ + + | Performing | Address | City/State/Zipcode | Phone Number | | Organization | | | | + +---------+ + + | EXTERNAL LAB | | | | + +---------+ + + Troponin I (10/21/2017 3:29 AM PDT) + + + + + [...] | | | | | performed at [facility] | | | | | | [facility];[place], [place] | | | | | | [address] | | | | + + + [...] + +---------+ + + External Lab: CBC (10/21/2017 3:29 AM PDT) + + + + + + | Component | Value | Ref Range | Performed | Pathologist | | | | | At | Signature | + + + + + + | WBC | 11.06 (H) | 3.80 - 11.00 | EXTERNAL | | | | | K/uL | LAB | | + + + + + + | Non- | 4.47 | 4.20 - 5.70 | EXTERNAL | | | Red Blood | | M/uL | LAB | | | Cells | | | | | | Counted | | | | | + + + + + + | Hemoglobin | 12.8 (L) | 13.2 - 17.0 | EXTERNAL | | | | | g/dL | LAB | | + + + + + + | Hematocrit, | 36.8 (L) | 39.0 - 50.0 % | [...] + + + + | Platelet | 308 | 150 - 400 K/uL | EXTERNAL [...] + + + | % Segmented | 54.78 | % | EXTERNAL | | | | | | LAB | | | Neutrophils | | | | | + + + + + + | % | 30.62 | % | EXTERNAL | | | Lymphocytes | | | LAB | | + + + + + + | % Monocytes | 11.34 | % | EXTERNAL | | | | | | LAB | | + + + + + + | % | 2.71 | % | EXTERNAL | | | Eosinophils | | | LAB | | + + + + + + | % Basophils | 0.55 | % | EXTERNAL | | | | | | LAB | | + + + + + + | Absolute | 6.06 | 1.90 - 7.40 | EXTERNAL | | | Segmented | | K/uL | LAB | | | Neutrophils | | | | | + + + + + + | Absolute | 3.39 | 1.00 - 3.90 | EXTERNAL | | | Lymphocytes | | K/uL | LAB | | + + + + + + | Absolute | 1.25 (H) | 0.00 - 0.80 | EXTERNAL | | | Monocytes | | K/uL | LAB | | + + + + + + | Absolute | 0.30 | 0.00 - 0.50 | EXTERNAL | | | Eosinophils | | K/uL | LAB | | + + + + + + | Absolute | 0.06Comment: Testing | 0.00 - 0.10 | EXTERNAL | | | Basophils | performed at [facility], [address] | K/uL | LAB | | | | [address], | | | | | | [place] [address] | | | | + + + + + + + + | Specimen | + + | Blood specimen | | (specimen) | + + + +---------+ + + | Performing | Address | City/State/Zipcode | Phone Number | | Organization | | | | + +---------+ + + | EXTERNAL LAB | | | | + +---------+ + + Phosphorus (10/21/2017 3:29 AM PDT) + + + + + [...] | | | | | [place] [address] | | | | + + + + + + + + | Specimen | + + | Blood specimen | | (specimen) | + + + +---------+ + + | Performing | Address | City/State/Zipcode | Phone Number | | Organization | | | | + +---------+ + + | EXTERNAL LAB | | | | + +---------+ + + Magnesium (10/21/2017 3:29 AM PDT) + + + + + + | Component | Value | Ref Range | Performed | Pathologist | | | | | At | Signature | + + + + + + | Magnesium | 2.0Comment: Testing | 1.7 - 2.4 mg/dL | EXTERNAL | | | | performed at [facility], [address] | | LAB | | | | [address], | | | | | | [place] [address] | | | | + + + [...] + +---------+ + + Basic Metabolic Panel (10/21/2017 3:29 AM PDT) + + + + + [...] + + + + | Glucose, | 151 (H) | 65 - 99 mg/dL | [...] + | BUN/Creatin | 19 | | EXTERNAL [...] | | | | | | [facility], | | | | | | [place] [address] | | | | + + + + + + + + | Specimen | + + | Blood specimen | | (specimen) | + + + +---------+ + + | Performing | Address | City/State/Zipcode | Phone Number | | Organization | | | | + +---------+ + + | EXTERNAL LAB | | | | + +---------+ + + CK-MB (10/20/2017 11:53 PM PDT) + + + + + + | Component | Value | Ref Range | Performed | Pathologist | | | | | At | Signature | + + + + + + | CK-MB | 3.7 (H) | 0.5 - 3.6 ng/mL | EXTERNAL | | | | | | LAB | | + + + + + + | CK-MB Index | UNABLE TO | | EXTERNAL | | | | CALCULATEComment: | | LAB | | | | Testing performed at | | | | | | [facility];[address] [facility] | | | | | | [address];[place] [address] | | | | + + + + + + + + | Specimen | + + | | + + + +---------+ + + | Performing | Address | City/State/Zipcode | Phone Number | | Organization | | | | + +---------+ + + | EXTERNAL LAB | | | | + +---------+ + + Troponin I (10/20/2017 11:53 PM PDT) + + + + + [...] | | | | | performed at [facility];[address] | | | | | | [address];[place], [place] | | | | | | [address] [...] + +---------+ + + ECG 12 lead (10/20/2017 8:13 PM PDT) + + + + + + | Component | Value | Ref Range | Performed | Pathologist | | | | | At | Signature | + + + + + + | DIAGNOSIS: | Normal sinus | | EXTERNAL | | | | rhythmNonspecific ST and | | LAB | | | | T wave | | | | | | abnormalityAbnormal | | | | | | ECGWhen compared with | | | | | | ECG of 16-OCT-2017 | | | | | | 08:59,No significant | | | | | | [...] | | | | | ONLY, -COMPUTER ([id number]), | | | | | | online editor Ashley Fan | | | | | | ([id number]) on 10/21/2017 | | | | | | 3:43:07 AM | | | | + + + + + + + + | Specimen | + + | | + + + + + | Narrative | Performed At | + + + | [facility] | EXTERNAL LAB | + + + + +---------+ + + | Performing | Address | City/State/Zipcode | Phone Number | | Organization | | | | + +---------+ + + | EXTERNAL LAB | | | | + +---------+ + + CT Angiogram Chest W Contrast (10/20/2017 7:55 PM PDT) + + | Specimen | + + | | + + + + + | Impressions | Performed At | + + + | 1. No aneurysm or dissection. 2. Stable appearance of small | | | filling defect along the right lower lobe pulmonary artery. | | | | | + + + + + + | Narrative | Performed At | + + + | [facility] 1955 CTA CHEST 10/20/2017 7:55 PM | | | INDICATION: Chest pain COMPARISON: CT angiogram, 10/13/2017 | | | TECHNIQUE: CT angiogram of the chest with and without IV contrast. 5 | | | mm thick helically acquired axial images are obtained without IV | | | contrast. 0.6 mm thick helically acquired axial images are obtained | | | with cardiac gating. Maximum intensity projection reconstructed | | | images are performed in the coronal and sagittal plane. 3-D surface | | | rendering of the aorta is performed by the tissue technologist. Dose | | | reduction techniques were used including automated exposure control, | | | iterative reconstruction technique, and/or automated adjustable mAs | | | based on patient size. 100 mL Isovue-370. FINDINGS: The | | | visualized thyroid is normal. There is no supraclavicular, mediastinal | | | or hilar lymphadenopathy. Gynecomastia is noted. The heart is normal | | | in size. Minimal pericardial fluid is present. There is no pleural | | | fluid. The gallbladder is absent. Visualized portions of the | | | liver, spleen, adrenals and pancreas are normal. There is no | | | pneumothorax. No focal airspace consolidation is present. There is no | | | pulmonary fibrosis. There is gklf-cn-jyscroya degenerative disc | | | disease of the thoracic spine. There are no acute rib fractures. | | | Angiogram: No aneurysm or dissection is present. The main pulmonary | | | artery is normal in caliber. Small embolus along the right lower lobe | | | image 54 series 7 is stable. | | + + + + + | Procedure Note | + + | Richard, Rad Conversion - 09/19/2018 1:06 AM SHALONDA [id number] | | CHEST10/20/2017 7:55 PM INDICATION: Chest pain COMPARISON: CT angiogram, 10/13/2017 | | TECHNIQUE: CT angiogram of the chest with and without IV contrast. 5 mm thick helically | | acquired axial images are obtained without IV contrast. 0.6 mm thick helically acquired | | axial images are obtained with cardiac gating. Maximum intensity projection | | reconstructed images are performed in the coronal and sagittal plane. 3-D surface | | rendering of the aorta is performed by the tissue technologist. Dose reduction techniques | | were used including automated exposure control, iterative reconstruction technique, | | and/or automated adjustable mAs based on patient size.100 mL Isovue-370. FINDINGS: The | | visualized thyroid is normal. There is no supraclavicular, mediastinal or hilar | | lymphadenopathy. Gynecomastia is noted. The heart is normal in size. Minimal pericardial | | fluid is present. There is no pleural fluid. The gallbladder is absent. Visualized | | portions of the liver, spleen, adrenals and pancreas are normal. There is no | | pneumothorax. No focal airspace consolidation is present. There is no pulmonary | | fibrosis. There is ooei-fn-jpqkjemc degenerative disc disease of the thoracic spine. | | There are no acute rib fractures. Angiogram: No aneurysm or dissection is present. The | | main pulmonary artery is normal in caliber. Small embolus along the right lower lobe | | image 54 series 7 is stable. IMPRESSION: 1. No aneurysm or dissection.2. Stable | | appearance of small filling defect along the right lower lobe pulmonary artery. | | | | | |There is lmhs-xp-ubxdyjfq degenerative disc disease of the thoracic spine. There are no acu te rib fractures. | | | |Angiogram: No aneurysm or dissection is present. The main pulmonary artery is normal in amadou iber. Small embolus along the right lower lobe image 54 series 7 is stable. | | | |IMPRESSION: | |1. No aneurysm or dissection. | |2. Stable appearance of small filling defect along the right lower lobe pulmonary artery. | | | | | + + XR Chest 2 Vws (10/20/2017 6:49 PM PDT) + + | Specimen | + + | | + + + + + | Impressions | Performed At | + + + | 1. No active intrathoracic disease. | | + + + + + + | Narrative | Performed At | + + + | HISTORY: Chest pain. COMPARISON: 10/13/17. TECHNIQUE: AP | | | and lateral films of the chest. FINDINGS: The heart size remains | | | normal. I see no evidence of infiltrate or effusion. Density along the | | | cardiac apex consistent with epicardial fat again noted. Mild | | | degenerative changes of the spine. | | + + + + --------+ | Procedure Note | + --------+ | Richard, Rad Conversion - 09/19/2018 1:06 AM PDT HISTORY:Chest pain. | | COMPARISON:10/13/17. TECHNIQUE:AP and lateral films of the chest. FINDINGS:The heart | | size remains normal. I see no evidence of infiltrate or effusion. Density along the | | cardiac apex consistent with epicardial fat again noted. Mild degenerative changes of | | the spine. IMPRESSION: 1. No active intrathoracic disease. | |TECHNIQUE: | |AP and lateral films of the chest. | | | |FINDINGS: | |The heart size remains normal. I see no evidence of infiltrate or effusion. Density along t he cardiac apex consistent with epicardial fat again noted. Mild degenerative changes of the spine. | | | |IMPRESSION: | |1. No active intrathoracic disease. | | | | | + --------+ Procalcitonin (10/20/2017 6:30 PM PDT) + + + + + + | Component | Value | Ref Range | Performed | Pathologist | | | | | At | Signature | + + + + + + | PROCALCITON | <0.05Comment: | ng/mL | EXTERNAL | | | IN | INTERPRETIVE | | LAB | | | | INFORMATION: | | [...] | | | | | | at [facility];[address] | | [address];[place] [address] | | | | + + + + + + + + | Specimen | + + | | + + + +---------+ + + | Performing | Address | City/State/Zipcode | Phone Number | | Organization | | | | + +---------+ + + | EXTERNAL LAB | | | | + +---------+ + + HISTORICAL LAB PANEL RESULT (10/20/2017 6:30 PM PDT) + + + + + -+ | Component | Value | Ref Range | Performed | Pathologist | | | | | At | Signature | + + + + + -+ | WBC | 14.47 (H) | 3.80 - 11.00 | EXTERNAL | | | | | K/uL | LAB | | + + + + + -+ | Non- | 4.85 | 4.20 - 5.70 | EXTERNAL | | | Red Blood | | M/uL | LAB | | | Cells | | | | | | Counted | | | | | + + + + + -+ | Hemoglobin | 13.6 | 13.2 - 17.0 | EXTERNAL | | | | | g/dL | LAB | | + + + + + -+ | Hematocrit, | 40.5 | 39.0 - 50.0 % | EXTERNAL | | | POC | | | LAB | | + + + + + -+ | MCV | 83.5 | 80.0 - 100.0 fl | EXTERNAL [...] + + + -+ | Platelet | 309 | 150 - 400 K/uL | EXTERNAL [...] + + -+ | % Segmented | 78.55 | % | EXTERNAL | | | | | | LAB | | | Neutrophils | | | | | + + + + + -+ | % | 13.31 | % | EXTERNAL | | | Lymphocytes | | | LAB | | + + + + + -+ | % Monocytes | 7.00 | % | EXTERNAL | | | | | | LAB | | + + + + + -+ | % | 0.22 | % | EXTERNAL | | | Eosinophils | | | LAB | | + + + + + -+ | % Basophils | 0.92 | % | EXTERNAL | | | | | | LAB | | + + + + + -+ | Absolute | 11.37 (H) | 1.90 - 7.40 | EXTERNAL | | | Segmented | | K/uL | LAB | | | Neutrophils | | | | | + + + + + -+ | Absolute | 1.93 | 1.00 - 3.90 | EXTERNAL | | | Lymphocytes | | K/uL | LAB | | + + + + + -+ | Absolute | 1.01 (H) | 0.00 - 0.80 | EXTERNAL | | | Monocytes | | K/uL | LAB | | + + + + + -+ | Absolute | 0.03 | 0.00 - 0.50 | EXTERNAL | | | Eosinophils | | K/uL | LAB | | + + + + + -+ | Absolute | 0.13 (H) | 0.00 - 0.10 | EXTERNAL | | | Basophils | | K/uL | LAB | | + + + + + -+ | Na | 135 | 135 - 145 | EXTERNAL | | | | | mmol/L | LAB | | + + + + + -+ | K | 4.2Comment: MODERATE | 3.5 - 4.9 | EXTERNAL | | | | HEMOLYSIS | mmol/L | LAB | | + + + + + -+ | Cl | 102 | 99 - 109 mmol/L | EXTERNAL | | | | | | LAB | | + + + + + -+ | CO2 | 22 (L) | 23 - 32 mmol/L | EXTERNAL | | | | | | LAB | | + + + + + -+ | Anion Gap | 15 | 5 - 20 mmol/L | EXTERNAL | | | | | | LAB | | + + + + + -+ | Glucose, | 251 (H) | 65 - 99 mg/dL | [...] + + + -+ | Calcium | 9.6 | 8.5 - 10.5 | EXTERNAL | | | | | mg/dL | LAB | | + + + + + -+ | Protein, | 8.3 (H) | 6.3 - 8.2 g/dL | EXTERNAL | | | Total | | | LAB | | + + + + + -+ | Albumin | 3.5 | 3.3 - 4.8 g/dL | EXTERNAL | | | | | | LAB | | + + + + + -+ | Globulin | 4.8 | 1.3 - 4.9 g/dL | EXTERNAL [...] + + + -+ | ALP, | 99 | 35 - 115 U/L | EXTERNAL | | | External | | | LAB | | + + + + + -+ | AST | 29Comment: MODERATE | 10 - 45 U/L | EXTERNAL | | | | HEMOLYSIS | | LAB | | + + + + + -+ | ALT | 26 | 10 - 65 U/L | EXTERNAL [...] + + -+ | CK, Total | 103Comment: MODERATE | 55 - 400 U/L | EXTERNAL | | | | HEMOLYSIS | | LAB | | + + + + + -+ | INR | 1.5Comment: REFERENCE | | [...] + + + -+ | aPTT, | 26 | 23 - 32 seconds | EXTERNAL | | | Patient | | | LAB | | + + + + + -+ | CK-MB | 2.8 | 0.5 - 3.6 ng/mL | EXTERNAL | | | | | | LAB | | + + + + + -+ | CK-MB Index | 2.7Comment: CK INDEX | | EXTERNAL | | [...] + +---------+ + + Sedimentation rate, automated (10/20/2017 6:30 PM PDT) + + + + + + | Component | Value | Ref Range | Performed | Pathologist | | | | | At | Signature | + + + + + + | Sed Rate | 36 (H)Comment: Testing | 0 - 20 mm/Hr | EXTERNAL | | | | performed at [facility];[address] | | LAB | | | | [address];[place], [place] | | | | | | [address] | | | | + + + + + + + + | Specimen | + + | | + + + +---------+ + + | Performing | Address | City/State/Zipcode | Phone Number | | Organization | | | | + +---------+ + + | EXTERNAL LAB | | | | + +---------+ + + C-Reactive Protein (10/20/2017 6:30 PM PDT) + + + + + + | Component | Value | Ref Range | Performed | Pathologist | | | | | At | Signature | + + + + + + | CRP | 0.7 (H)Comment: Testing | mg/dL | EXTERNAL | | | | performed at [facility] | | LAB | | | | [address];[place] | | | | | | [address] | | | | + + + + + + + + | Specimen | + + | | + + + +---------+ + + | Performing | Address | City/State/Zipcode | Phone Number | | Organization | | | | + +---------+ + + | EXTERNAL LAB | | | | + +---------+ + + ECG 12 lead (10/20/2017 6:23 PM PDT) + + + + + [...] | | | | | ECG of 16-OCT-2017 | | | | | | 08:59,No significant | | | | | | [...] | | | | | ONLY, -COMPUTER ([id number]), | | | | | | online editor Ashley Fan | | | | | | (79) on 10/21/2017 | | | | | | 7:33:07 PM | | | | + + + + + + + + | Specimen | + + | | + + + + + | Narrative | Performed At | + + + | Historically converted procedure from [facility] Epic environment | EXTERNAL LAB | + + + + +---------+ + + | Performing | Address | City/State/Zipcode | Phone Number | | Organization | | | | + +---------+ + + | EXTERNAL LAB | | | | + +---------+ + + documented in this encounter Visit Diagnoses + + | Diagnosis | + + | Chest pain in adult | + + | Chronic kidney disease, unspecified CKD stage | + + documented in this encounter
--- OUTSIDE RECORDS SUMMARY | ~2019-09-09 | XMS | Encounter Summary ---
Demographics + + + | Address | [address] | | | [place] [address] | + + + | Home Phone [...] Sammi Kohler | ECON | [place] [address] | | + + + + + Care Team Providers + +------+ + | Care Ski Production Supervisor Name | Role | Phone | [...] + + | 04/12/ | Emergency | [facility] | Kristian Mae | Hyperglycemia | | 2020 | | MEDICAL CENTER | MD [address] | (Primary Dx) | | | | EMERGENCY CENTER | [place], | | | | | [address] | [place] [address] | | | | | [place], [place] | [phone] | | | | | [address] | | | | | | [phone] | | | +--------+ + + + [...] documented as of this encounter Discharge Instructions Noble Domingo - 04/13/2019Go home and follow your routine blood glucose manag ement. Return to the ED if you develop chest pain or SOB. Follow up with your primary care ashley pascual in one week for reevaluation. AttachmentsThe following attachments cannot be sent through Care Everywhere.Blood Sugar, Arnulfo fleming to Check Your (Slovenian)documented in this encounter Medications at Time of [...] tablet by | 30 | 4 | 10/02/20 | | | CC) 60 MG 24 [...] MD - 04/13/2019 8 :43 AM PST EMERGENCY CENTER Norah Gr [id number] History obtained from the patient. Mode of [...] any other symptoms at this time. 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 [...] of GE junction Hypercholesterolemia 07/08/2013 Hyperlipidemia Hypertension FDC (current) use of 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 Obesity, Class I, BMI 30-34.9 07/08/2013 WARD (obstructive sleep apnea) 08/11/2012 does not use CPAP because of the noise Other chronic pain Renal failure Stroke (HCC) TIA (transient ischemic attack) Unspecified visual disturbance reading glasses SURGICAL HISTORY Past Surgical History: Procedure Laterality Date ABDOMEN SURGERY CHOLECYSTECTOMY CHOLECYSTECTOMY, LAPAROSCOPIC 09/12/2012 Procedure: LAPAROSCOPIC - CHOLECYSTECTOMY; Surgeon: Jevon Vargas DO; Location: [facility] MAIN OR; Service: General; Laterality: N/A; COLONOSCOPY COLONOSCOPY 03/04/2013 Procedure: COLONOSCOPY; Surgeon: Howie Gibson MD; Location: [facility] ENDOSCOPY; Service: Gastroen terology; Laterality: N/A; HERNIA REPAIR 07/03/2013 Procedure: LAPAROSCOPIC - HERNIA - INCISIONAL; Surgeon: Jevon Vargas DO; Location: [facility] MAIN OR; Service: General; Laterality: N/A; KNEE SURGERY rt knee, patella LEG SURGERY LLE OTHER SURGICAL HISTORY UNLISTED PROCEDURE ARTHROSCOPY OTHER SURGICAL HISTORY Left 05/05/2014 SKIN LESION EXCISION - Procedure: EXCISION - LESION - FROZEN SECTION; Surgeon: Sy murcia MD; Location: [facility] MAIN OR; Service: Plastics; Laterality: Left; forearm SKIN BIOPSY SKIN CANCER EXCISION Left 10/10/2012 Procedure: EXCISION - SKIN CANCER; Surgeon: Sy Fierro MD; Location: [facility] MAIN OR; Service: Plastics; Laterality: Left; upper arm and upper back w/frozen section UPPER GASTROINTESTINAL ENDOSCOPY UPPER GASTROINTESTINAL ENDOSCOPY 03/03/2013 Procedure: ESOPHAGOGASTRODUODENOSCOPY; Surgeon: Howie Gibson MD; Location: [facility] ENDOSCOPY; Se rvice: Gastroenterology; Laterality: N/A; CURRENT MEDICATIONS 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 I reviewed old medical records, nursing [...] - Primary Care Contact information: [address] [facility] [address] [facility] [id number] Go to EMERGENCY CENTER. Specialty: Emergency Medicine Why: If symptoms worsen Contact information: [address] [facility] [address] ED Prescriptions None Portions of this chart may have been created with voice recognition software. Occasional wr enrico-word or sound-alike substitutions may have occurred due to the inherent limitation s of voice recognition software. Read the chart carefully and recognize, using context, wher e these substitutions have occurred. Attending Provider Note: I, Kristian Mae MD personally performed the services descr vero in this documentation, as scribed by Noble [...] | | 2019 | Visit | | INVASIVE CARDIOVASCULAR TECHNOLOGIST [address] [facility] | | | | | | [address], | | | | | | [place] [address] | | | | | | [phone] | | | | | | | | +--------+---------+ + + + | 09/29/ | Office | Urology | Mireya Pack, | | 2019 | Visit | | INVASIVE CARDIOVASCULAR TECHNOLOGIST [address] | | | | | | [place] [place], | | | | | | [place] [address] | | | | | | [phone] | | | | | | | | | | | | Toy Wild W, DO | | | | | | [address] | | | | | | [place] [address] | | | | | | [phone] | | | | | | | [...] | | | FICATI | | | ON?03/ | | | 07/202 | | | 0 | | | 08:17? | | | GR, | | | NORAH | | | | | | M?MRN: | | | | | | [id number] | | | [id number] | | | riteri | | | [...] | | [facility] | | | [place] | | | [place] | | | [...] | | | [place] | | | Wall Crane Operator | | | al | | [...] | | | 2020 | | | [facility] | | | tive | | | [...] Testing | 65 - 99 mg/dL | [facility] | | | POC | performed at [facility];[address] | | LABORATORY | | | | [address];[place], [place] | | | | | | [address] | | | | + + + + + + + + | Specimen | + + | | + + + + + + + | Performing | Address | City/State/Zipcode | Phone Number | | Organization | | | | + + + + + | [facility] | [address] | [place] [address] | [phone] | + + + + + ECG [...] | | | | | ONLY, -COMPUTER (046), | | | | | | editor greeting card Uriel Simms | | | | | [...] | | | SO2.BLDV.QN | performed at [facility];[address] | | LABORATORY | | | .(%) | [address];[place], [place] | | | | | | [address] | | | | + + + + + + + + | Specimen | + + | | + + + + + + + | Performing | Address | City/State/Zipcode | Phone Number | | Organization | | | | + + + + + | [facility] | [address] | [place] [address] | [phone] | + + + + + Troponin I (04/13/2019 8:29 AM PST) + + + + + + | Component | Value | Ref Range | Performed | Pathologist | | | | | At | Signature | + + + + + + | Troponin I | 0.015Comment: 0.04 | 0.00 - 0.04 | [facility] | | | | ng/mL or [...] at | | | | | | [facility];[address] [facility] | | | | | | Blvd;[place] [address] | | | | + + + + + + + + | Specimen | + + | | + + + + + + + | Performing | Address | City/State/Zipcode | Phone Number | | Organization | | | | + + + + + | [facility] | [address] | [place] [address] | [phone] | + + + + + Comprehensive [...] | >60Comment: GFR <60: | >60 | [facility] | | | GFR | CHRONIC [...] | | | | | performed at [facility] | | | | | | [facility];[place], [place] | | | | | | [address] | | | | + + + + + + + + | Specimen | + + | Blood | + + + + + + + | Performing | Address | City/State/Zipcode | Phone Number | | Organization | | | | + + + + + | [facility] | [address] | [place] [address] | [phone] | + + + + + CBC [...] | | | Absolute | performed at [facility];[address] | K/uL | LABORATORY | | | | [address];[place], [place] | | | | | | [address] | | | | + + + + + + + + | Specimen | + + | Blood | + + + + + + + | Performing | Address | City/State/Zipcode | Phone Number | | Organization | | | | + + + + + | [facility] | [address] | [place] [address] | [phone] | + + + + + Lactic Acid (04/13/2019 8:27 AM PST) + + + + + + | Component | Value | Ref Range | Performed | Pathologist | | | | | At | Signature | + + + + + + | Lactate, | 2.6 (H)Comment: CALLED | 0.4 - 2.0 | [facility] | | | Serum | TO CHUYITA ENRIQUE 0950 BY | mmol/L | LABORATORY | | | | TRTesting performed at | | | | | | [facility];[address];[place] [address] | | | | + + + + + + + + | Specimen | + + | Blood | + + + + + + + | Performing | Address | City/State/Zipcode | Phone Number | | Organization | | | | + + + + + | [facility] | [address] | [place] [address] | [phone] | + + + + + POC [...] | | | POC | performed at [facility];[address] | | LABORATORY | | | | [address];[place] | | | | | | [address] | | | | + + + + + + + + | Specimen | + + | | + + + + + + + | Performing | Address | City/State/Zipcode | Phone Number | | Organization | | | | + + + + + | [facility] | [address] | [place] [address] | [phone] | + + + + + documented [...] Abdomen- | | novoLIN R) injection (vial) 5 | | 20 8:57 | | | [...]
--- OUTSIDE RECORDS SUMMARY | ~2019-09-09 | XMS | Encounter Summary ---
Demographics + + + | Address | [address] | | | [place] [address] | + + + | Home Phone [...] Sammi Kohler | ECON | [place] [address] | | + + + + + Care Team Providers + +------+ + | Care Customer Manager Name | Role | Phone | [...] + + | 01/10/ | Emergency | [facility] | Reynaldo Prather | Dizziness (Primary | | 2019 | | MEDICAL CENTER | [address] | Dx); Hyperglycemia | | | | EMERGENCY CENTER | [address] | | | | | [address] | [place], [place] | | | | | [place], [place] | [address] | | | | | [address] | [phone] | | | | | [phone] | | | +--------+ + + + [...] through Care Everywhere.Hyperglycemia ( High Blood Sugar) (Senegalese)Inner Ear, Anatomy (Senegalese)Dizziness or Fainting, Possible Cause s of (Senegalese)Dizziness (Vertigo) and Balance Problems: Staying Safe (Senegalese)documented in this encounter Medications at Time of [...] might be diff erent from the original. [facility] Department of Emergency Medicine Procedures No [...] had no relief to his symptoms. The pa aki reports he did have his ears drained [...] 10/14/2017 Anxiety ARF (acute renal failure) ([facility]) 03/02/2013 Atrial fibrillation (HCC) Basal cell carcinoma 09/26/2012 arm and back COPD (chronic obstructive pulmonary disease) ([facility]) 03/02/2013 hypoxemia on 2 lts nc Depression Development delay Diabetes mellitus type II DVT (deep venous thrombosis) ([facility]) 03/29/2018 Facial droop 07/08/2013 GIB (gastrointestinal bleeding) 03/02/[address] Nur, rectal ulcers, nodule of GE junction Hypercholesterolemia 07/08/2013 Hyperlipidemia Hypertension die forger (current) use of 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 Obesity, Class I, BMI 30-34.9 07/08/2013 WARD (obstructive sleep apnea) 08/11/2012 does not use CPAP because of the noise Other chronic pain Renal failure Stroke (HCC) TIA (transient ischemic attack) Unspecified visual disturbance reading glasses Past Surgical History: Procedure Laterality Date ABDOMEN SURGERY CHOLECYSTECTOMY CHOLECYSTECTOMY, LAPAROSCOPIC 09/12/2012 Procedure: LAPAROSCOPIC - CHOLECYSTECTOMY; Surgeon: Jevon Vargas DO; Location: [facility] MAIN OR; Service: General; Laterality: N/A; COLONOSCOPY COLONOSCOPY 03/04/2013 Procedure: COLONOSCOPY; Surgeon: Howie Gibson MD; Location: [facility] ENDOSCOPY; Service: Gastroen terology; Laterality: N/A; HERNIA REPAIR 07/03/2013 Procedure: LAPAROSCOPIC - HERNIA - INCISIONAL; Surgeon: Jevon Vargas DO; Location: [facility] MAIN OR; Service: General; Laterality: N/A; KNEE SURGERY rt knee, patella LEG SURGERY LLE OTHER SURGICAL HISTORY UNLISTED PROCEDURE ARTHROSCOPY OTHER SURGICAL HISTORY Left 05/05/2014 SKIN LESION EXCISION - Procedure: EXCISION - LESION - FROZEN SECTION; Surgeon: Sy murcia MD; Location: [facility] MAIN OR; Service: Plastics; Laterality: Left; forearm SKIN BIOPSY SKIN CANCER EXCISION Left 10/10/2012 Procedure: EXCISION - SKIN CANCER; Surgeon: Sy Fierro MD; Location: [facility] MAIN OR; Service: Plastics; Laterality: Left; upper arm and upper back w/frozen section UPPER GASTROINTESTINAL ENDOSCOPY UPPER GASTROINTESTINAL ENDOSCOPY 03/03/2013 Procedure: ESOPHAGOGASTRODUODENOSCOPY; Surgeon: Howie Gibson MD; Location: [facility] ENDOSCOPY; Se rvice: Gastroenterology; Laterality: N/A; Prior [...] file Gets together: Not on file Attends advent service: Not on file Active member of [...] Lives alone x 1 wk, [facility], , 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 2 falls in the last 6 months. Family History Problem Relation Age of Onset Heart disease Father Heart disease Sister Diabetes, NIDDM Sister Other (see comment) Brother Heart Problems Review of Systems Constitutional: Negative for fever Eyes: Negative for vision changes Nose: Negative for congestion Throat: Negative for sore throat CV/Resp: Negative for chest pain, [id number], cough GI: Negative for abdominal pain, nausea, [...] time. Advised outpatient follow-up with audiology. Recommended bocm-oiw-csonakg Debrox for cerumen impact ion. I discussed [...] Value Ref Range Date/Time Comprehensive Metabolic Panel [[id number]] (Abnormal) Collected: 01/10/1914 Order Status: Completed Specimen: Blood Updated: 01/10/19650 Na 143 135 - 145 mmol/L K [...] Estimated GFR >60 >60 mL/min/1.73m2 Troponin I [[id number]] Collected: 01/10/19613 Order Status: Completed Specimen: Blood Updated: 01/10/19650 Troponin I 0.018 0.00 - 0.04 ng/mL CBC with Differential [[id number]] (Abnormal) Collected: 01/10/19613 Order Status: Completed Specimen: [...] Contact information: [address] [facility] [address] Go to Pepe Bain MD. Specialty: Otolaryngology Why: for follow up Contact information: [address] [facility] [address] Go to [facility]. Specialty: Otolaryngology Why: for follow up as needed Contact information: [address] [facility] [phone] Discharge Medications: Discharge Medication List as of 01/10/2019 7:44 AM Dictation software, [employer], used which may contain error for similar [...] and given Meclizine PO. Pt states bran e has been taking the pills as directed [...] | | 2019 | Visit | | VISUAL MERCHANDISING MANAGER [address] | | | | | | [facility] [address] [place], | | | | | | [place] [address] | | | | | | [phone] | | | | | | | | +--------+---------+ + + + | 09/29/ | Office | Urology | Mireya Pack, | | | 2020 | Visit | | VISUAL MERCHANDISING MANAGER [address] | | | | | | [address] [place], | | | | | | [place] [address] | | | | | | [phone] | | | | | | | | | | | | Toy Wild W, DO | | | | | | [address] | | | | | | [place] [address] | | | | | | [phone] | | | | | | | [...] | | n - | | | 01/10/ | | | 2018 | | | [...] | | | ON?12/ | | | 05/201 | | | 9 | | | 05:18? | | | GR, | | | NORAH | | | | | | M?MRN: | | | | | | [id number] | | | [id number] | | | riteri | | | [...] | | | [id number] | | | [id number] | | | d7 | | | [...] 0.018Comment: 0.04 | 0.00 - 0.04 | [facility] [...] at | | | | | | [facility];[address] [facility] | | | | | | [facility];[place] [address] | | | | + + + + + + + + | Specimen | + + | Blood | + + + + + + + | Performing | Address | City/State/Zipcode | Phone Number | | Organization | | | | + + + + + | [facility] | [address] | [place] [address] | [phone] | + + + + + Comprehensive [...] | >60Comment: GFR <60: | >60 | [facility] | | | GFR | CHRONIC KIDNEY [...] | | | | | | MDRD [facility] traceable | | | | | | equation.Testing | | | | | | performed at [facility];[address] | | | | | | [facility];[place], [place] | | | | | | [address] | | | | + + + + + + + + | Specimen | + + | Blood | + + + + + + + | Performing | Address | City/State/Zipcode | Phone Number | | Organization | | | | + + + + + | [facility] | [address] [facility] | [place] [address] | [phone] | + + + + + CBC [...] 0.06Comment: Testing | 0.00 - 0.10 | [facility] | | | Absolute | performed at [facility];[address] | K/uL | LABORATORY | | | | [address];[place] | | | | | | [address] | | | | + + + + + + + + | Specimen | + + | Blood | + + + + + + + | Performing | Address | City/State/Zipcode | Phone Number | | Organization | | | | + + + + + | [facility] | [address] | [place] [address] | [phone] | + + + + + ECG [...] of | | | | | | 03-JAN-2019 | | | | | | 20:07,Premature [...] | | | | | | (500), editor news Rodney, | | | | | | [...]
--- OUTSIDE RECORDS SUMMARY | ~2019-09-09 | XMS | Encounter Summary ---
Demographics + + + | Address | [address] | | | [place] [address] | + + + | Home Phone [...] + | Sammi Kohler | ECON | [place] [address] | | + + + + + Care Team Providers + +------+ + | Care Hat Model Name | Role | Phone | + +------+ + PCP | Unavailable | + +------+ + Encounter Details +--------+ + + + + | Date | Type | Department | Care Team | Description | +--------+ + + + + | 05/19/ | Emergency | [facility] | Zach Tena, | Non-cardiac chest | | 2014 - | | MEDICAL CENTER | [address] | pain | | | | EMERGENCY CENTER | [place] [address] | | | 05/20/ | | [address] | [phone] | | | 2013 | | [place], [place] | | | | | | [address] | | | | | | [phone] | | | +--------+ + + + [...] Progress Notes Conversion Transaction, Provider Unknown - 05/19/2013 9:13 PM PDTFormatting of this note m ight be different from the original. Case Management by QUINN Saldana at 05/19/132112 Author: QUINN Saldana Service: (none) Author Type: Websphere Administrator Filed: 05/19/132113 Date of Service: 05/19/132112 Status: Signed Exercise Instructor: QUINN Saldana (Websphere Administrator) Received COLTON alert Pt has 22 ED visits w/i last 12 months all to [facility]. docume nted in this encounter ED Notes Conversion Transaction, Provider Unknown - 05/20/2013 1:34 AM PDTFormatting of this note m ight be different from the original. ED Notes by Marques Murphy RN at 05/20/13133 Author: Marques Murphy RN Service: (none) Author Type: Registered Nurse Filed: 05/20/13145 Date of Service: 05/20/13133 Status: Signed Exercise Instructor: Marques Murphy RN (Registered Nurse) Report called and given to Amarilys wolff [facility] in [place]. aMrques Murphy RN 05/20/13145 onver ivana Transaction, Provider Unknown - 05/19/2013 10:43 PM PDT ED Notes by Doris Moya at 05/19/132242 Author: Doris Moya Service: (none) Author Type: Tax Credit Leasing Consultant Filed: 05/19/132242 Date of Service: 05/19/132242 Status: Signed Exercise Instructor: Doris Moya (Tax Credit Leasing Consultant) Pt returned from XR Doris Moya 05/19/132242 ach Tena MD - 05/19/2013 10:02 PM PDTFormatting of this note might be different from the o riginal. ED Provider Notes by Zach Tena MD at 05/19/132201 Author: Zach Tena MD Service: (none) Author Type: Physician Filed: 05/22/13 0628 Date of Service: 05/19/132201 Status: Signed Exercise Instructor: Zach Tena MD (Physician) [facility] Department of Emergency Medicine 10:02 PM History of Present Illness Patient Identification Kevyn Guzman is a 57 y.o. male. Patient information was obtained from patient. History/Exam limitations: none. Patient presented to the Emergency Department by: [facility] Chief Complaint Chief Complaint Patient presents with Flank Pain Left side Tingling Pt complains of tingling sensation to right lower chest. This is a 57 y.o. male with chief complaint of flank pain. Other associated complaints incl ude left lower chest pain, RUQ abdominal pain, nausea, and diarrhea. Onset of symptoms was 2 hours ago, with a worsening course since that time. The symptoms are currently described t o be of moderate severity. The symptoms are improved by nothing and worsened by deep bnreat franky. No care prior to arrival. Other significant positive and negative factors include: Positive associated with: H/o renal failure Negative associated with: No vomiting, diaphoresis, fever, SOB, dysuria or dizziness. Pt kelley d a normal CT angio on 04/18/13 and a normal stress test on 04/19/13. Other significant factors in the PMH are noted and include: HTN, hyperlipidemia, DM, and AF IB. No h/o kidney stones or kidney infection. PCP: JERRELL GUTIÉRREZ Past Medical History Diagnosis [...] - CHOLECYSTECTOMY; Surgeon: Jevon Vargas DO; Location: [facility] MAIN OR; Service: General; Laterality: N/A; Abdominal surgery Cholecystectomy Skin cancer excision 10/10/2012 Procedure: EXCISION - SKIN CANCER; Surgeon: Sy Fierro MD; Location: [facility] MAIN OR ; Service: Plastics; Laterality: Left; upper arm and upper back w/frozen section Esophagogastroduodenoscopy 03/03/2013 Procedure: ESOPHAGOGASTRODUODENOSCOPY; Surgeon: Howie Gibson MD; Location: [facility] ENDOSCOPY; S ervice: Gastroenterology; Laterality: N/A; Colonoscopy 03/04/2013 Procedure: COLONOSCOPY; Surgeon: Howie Gibson MD; Location: [facility] ENDOSCOPY; Service: Gastroe nterology; Laterality: N/A; Prior to Admission medications Medication Sig Start Date End Date Taking? Authorizing Provider ARIPiprazole (ABILIFY) 10 MG tablet Take 15 mg by mouth nightly. Yes Historical Provider calcium carbonate (TUMS) 500 MG chewable tablet Take 500-1,000 mg by mouth daily as needed. For GERD Yes Historical Provider cloNIDine (CATAPRES) 0.2 MG tablet Take 1 tablet by mouth 3 (three) times daily. 03/05/13 Yes Scott Martínez MD clopidogrel (PLAVIX) 75 MG tablet 1 TAB BY MOUTH EVERY DAY 04/23/13 Yes Bang Yeh MD diltiazem (CARDIZEM CD) 240 MG 24 hr capsule Take 240 mg by mouth daily. Yes Historical P rovider docusate sodium (COLACE) 100 MG capsule Take 100 mg by mouth nightly. Yes Historical Prov ider famotidine (PEPCID) 20 MG tablet 1 TAB BY MOUTH 2 TIMES DAILY 05/10/13 Yes Bang Yeh MD fenofibrate (TRIGLIDE) 160 MG [...] 7U, 211- 04/23/13 Yes Bang Yeh MD pantoprazole (PROTONIX) 40 MG tablet [...] MOUTH EVERY DAY 04/23/13 Bang Yeh MD budesonide-formoterol (SYMBICORT) 80-4.5 MCG/ACT inhaler Inhale 2 puffs into the lungs 2 (t wo) times daily. 05/19/13 Historical Provider No Known Allergies History Social [...] on file Social History Narrative Lives in intermediate, IADL, full code Family History Problem Relation Age of Onset Heart disease Father Heart disease Sister Diabetes type II Sister Review of Systems Review of Systems Constitutional: Negative for fever, chills and diaphoresis. Respiratory: Negative for shortness of breath. Cardiovascular: Positive for chest pain. Gastrointestinal: Positive for nausea, abdominal pain and diarrhea. Negative for vomiting. Genitourinary: Positive for flank pain. Negative for dysuria. Neurological: Negative for dizziness. All other systems reviewed and are negative. Physical Exam BP 141/68 | Pulse 45 | Temp 97.3 F (36.3 C) (Oral) | Resp 16 | Wt 108.863 kg (240 lb) | SpO2 94% Vitals: Bradycardic, otherwise WNL Pulse Oximetry Interpretation: Normal General: [...] chest rise and fall, no obvious traum a. Point TTP to left chest wall Abdomen: Soft, vague LUQ abdominal tenderness, non-distended, Bowel sounds unremarkable. CV A's non-tender. No guarding or rebound. No masses. No hernias. Rectal deferred Back: No point tenderness. Moves without difficulty Extremities: Moves all extremities without pain or restriction. No obvious deformity. Well perfused. No calf tenderness No leg swelling Skin: Color normal. Warm and dry. No rash noted Neuro: No gross motor/sensory deficits noted. No facial asymmetry Medical Decision Making and Emergency Department Course ED Department Course 10:02 PM Pt presents to the ED complaining of flank pain and lower. On exam, pt is tender to his left chest wall wall and LUQ I feel that the list of possible emergent diagnoses that the patient requires an evaluation for includes (but is not limited to) UTI, pleurisy, pneumonia, ACS, vs other. I believe th at laboratory testing and further diagnostic testing is necessary to ensure that there is no acute emergent cause of the symptoms. I am concerned about UTI, pleurisy and pneumonia. Will evaluate accordingly. 11:00 PM. Lab and radiology results reviewed. Will repeat EKG and place call to cardiology. 11:12 PM. Discussed case with Dr. Sterling, cardiology, who was not concerned about pt's hear t rate. 11:20 PM. Pt recheck. Pt is stable and doing well at this time. Pt understands and agrees w ith plan. Pt is ready for discharge. Lab and radiology is not indicative of acute emergent illness. I have spoken with cardiolog y who does not feel that the pt's low heart rate is an emergent concern. I have discussed my clinical impression and treatment plan with the pt. We have specifically discussed the sign s and symptoms that would constitute the need for an immediate return to the ED, the importa nce of continued close outpatient f/u with his PCP and the importance of compliance with the d/c instructions. I have answered any questions that the pt has to the best of my ability. Based upon the pt s history, physical exam, ED course, and diagnostic studies, I feel mykel t there is no current emergent medical condition that warrants admission, transfer, or furth er ED treatment at this time. Filed Vitals: 05/19/13 2116 05/19/13 2243 BP: 141/68 146/67 Pulse: 45 41 Temp: 97.3 F (36.3 C) TempSrc: Oral Resp: 16 14 Weight: 108.863 kg (240 lb) SpO2: 94% 96% Records Reviewed Old medical records. Nursing notes. Previous ED visits for similar and unrelated complaints. Laboratory Evaluation Results Procedure Component Value Ref Range Date/Time POC clinitek 10 [[id number]] (Abnormal) Collected:05/19/132312 Order Status:Completed Updated:05/19/132317 Color, UA YELLOW Clarity, UA CLEAR Glucose, UA NEGATIVE NEGATIVE mg/dL Bilirubin, UA NEGATIVE NEGATIVE Ketones, UA NEGATIVE NEGATIVE mg/dL Spec Grav, UA 1.025 1.001 - 1.035 Blood, UA NEGATIVE NEGATIVE pH, UA 6.0 4.6 - 8.0 Protein, UA NEGATIVE NEGATIVE mg/dL Urobilinogen, UA 0.2 <1.1 mg/dL Nitrite, UA NEGATIVE NEGATIVE WBC, UA TRACE (A) NEGATIVE Complete Metabolic Panel [[id number]] (Abnormal) Collected:05/19/132119 Order Status:Completed Updated:05/19/132233 Specimen Information:Blood SODIUM 136 135 - 143 mmol/L POTASSIUM 4.1 3.5 - 4.9 mmol/L CHLORIDE 103 99 - 109 mmol/L CO2 28 23 - 32 mmol/L ANION GAP AGAP 9 5 - 20 mmol/L GLUCOSE 182 (H) 65 - 99 mg/dL BUN 22 8 - 25 mg/dL CREATININE 1.45 (H) 0.70 - 1.30 mg/dL BUN/CREAT 15 CALCIUM 8.9 8.5 - 10.2 mg/dL TOTAL PROTEIN 7.5 6.3 - 8.2 g/dL Albumin 3.3 (L) 3.6 - 5.0 g/dL GLOBULIN 4.2 1.3 - 4.9 g/dL A/G 0.8 (L) 1.0 - 2.4 TBIL 0.3 0.1 - 1.5 mg/dL ALK PHOS 83 35 - 115 U/L AST 21 10 - 45 U/L ALT 24 10 - 65 U/L EGFR 53 (L) >60 mL/min/1.73m2 Lipase [[id number]] Collected:05/19/132119 Order Status:Completed Updated:05/19/132233 Specimen Information:Blood LIPASE 185 73 - 393 U/L PT [[id number]] Collected:05/19/132119 Order Status:Completed Updated:05/19/132227 Specimen Information:Blood INR 1.1 CBC w Auto Diff [[id number]] (Abnormal) Collected:05/19/132119 Order Status:Completed Updated:05/19/132223 Specimen Information:Blood WBC 10.5 3.8 - 11.0 K/uL RBC 4.52 4.20 - 5.70 M/uL HGB 12.2 (L) 13.2 - 17.0 g/dL HCT 37.5 (L) 39.0 - 50.0 % MCV 82.9 80.0 - 100.0 fl MCH 27.0 27.0 - 34.0 pg MCHC 32.6 32.0 - 35.5 g/dL RDW SD 45.5 37 - 53 fl PLT 306 150 - 400 K/uL MPV 7.4 fl DIFF TYPE AUTOMATED NEUTROPHILS 55.1 % LYMPHOCYTES 33.0 % MONOCYTES 8.7 % EOSINOPHILS 2.8 % BASOPHILS 0.4 % NEUTROPHILS ABS 5.8 1.9 - 7.4 K/uL LYMPHOCYTES ABS 3.5 [...] Chest PA and Lateral (In process) EKG at 2129 Sinus bradycardia at rate of 44. No ectopy or blocks. Intervals and segments are normal. No acute ST-T changes. Interpreted independently by me, Zach Tena MD Repeat EKG at 2256 Sinus bradycardia at rate of 41. No ectopy or blocks. Intervals and segments are normal. No acute ST-T changes. Interpreted independently by me, Zach Tena MD ED Diagnosis Final diagnosis Non-cardiac chest pain Disposition: ED Disposition Discharge Condition at discharge: Stable Follow-up Information Follow up With Details Comments Contact Info Jerrell Gutiérrez DO Schedule an appointment as soon as possible for a visit for evaluatio n within this week [address] [facility] [address] [facility] Emergency Department If symptoms worsen [address] [facility] [address] Discharge Medications: New Prescriptions DILTIAZEM (CARDIZEM CD) 180 MG 24 HR CAPSULE Take 1 capsule by mouth daily. Zach Tena MD Additional Documentation Procedures Attending Note: Documentation assistance provided by Elroy Ford (Scribe). Information recorded by the scribe has been reviewed and validated by me. I ag ree with its contents. Zach Tena MD 05/22/13 0628 onversion Transacti on, Provider Unknown - 05/19/2013 9:11 PM PDTFormatting of this note might be different fro m the original. ED Notes by Onel Kenney RN at 05/19/132110 Author: Onel Kenney RN Service: (none) Author Type: Registered Nurse Filed: 05/19/132110 Date of Service: 05/19/132110 Status: Signed Exercise Instructor: Onel Kenney RN (Registered Nurse) Bed:15
Expected date:
Expected time:
Means of arrival:
Comments:
[facility] 1 4 docume nted in this encounter Plan of Treatment +--------+---------+ + + + | Date | Type | Specialty | Care Team | Description | +--------+---------+ + + + | 09/10/ | Office | Geriatric Medicine | Mireya Pack, | | | 2019 | Visit | | GUITAR INSTRUCTOR [address] | | | | | | [address] [place], | | | | | | [place] [address] | | | | | | [phone] | | | | | | | | +--------+---------+ + + + | 09/29/ | Office | Urology | Mireya Pack, | | | 2019 | Visit | | GUITAR INSTRUCTOR [address] | | | | | | [address] [place], | | | | | | [place] [address] | | | | | | [phone] | | | | | | | | | | | | Toy Wild, DO | | | | | | [address] | | | | | | [place] [address] | | | | | | [phone] | | | | | | | | +--------+---------+ + + + documented as of this encounter Procedures + +--------+ + + + | Procedure Name | Priori | Date/Time | Associated Diagnosis | Comments | | | ty | | | | + +--------+ + + + | ECG 12 LEAD | Routin | 05/19/2013 | | Results for this | | | e | 10:56 PM | | procedure are in the | | | | PDT | | results section. | + +--------+ + + + | XR CHEST 2 VIEWS | Routin | 05/19/2013 | | Results for this | | | e | 10:38 PM | | procedure are in the | | | | PDT | | results section. | + +--------+ + + + | ECG 12 LEAD | Routin | 05/19/2013 | | Results for this | | | e | 9:29 PM | | procedure are in the | | | | PDT | | results section. | + +--------+ + + + | EXTERNAL LAB: CBC | Routin | 05/19/2013 | | Results for this | | | e | 9:20 PM | | procedure are in the | | | | PDT | | results section. | + +--------+ + + + | PROTIME INR | Routin | 05/19/2013 | | Results for this | | | e | 9:20 PM | | procedure are in the | | | | PDT | | results section. | + +--------+ + + + | LIPASE | Routin | 05/19/2013 | | Results for this | | | e | 9:20 PM | | procedure are in the | | | | PDT | | results section. | + +--------+ + + + | COMPREHENSIVE | Routin | 05/19/2013 | | Results for this | | METABOLIC PANEL | e | 9:20 PM | | procedure are in the | | | | PDT | | results section. | + +--------+ + + + | URINALYSIS, | Routin | 05/19/2013 | | Results for this | | MICROSCOPIC ONLY | e | 12:24 AM | | procedure are in the | | | | PDT | | results section. | + +--------+ + + + | CULTURE, URINE | STAT | 05/19/2013 | | Results for this | | | | 12:24 AM | | procedure are in the | | | | PDT | | results section. | + +--------+ + + + documented in this encounter Results ECG 12 lead (05/19/2013 10:56 PM PDT) + + + + + + | Component | Value | Ref Range | Performed | Pathologist | | | | | At | Signature | + + + + + + | DIAGNOSIS: | Marked sinus | | EXTERNAL | | | | bradycardiaAbnormal | | LAB | | | | ECGWhen compared with | | | | | | ECG of 19-APR-2013 | | | | | | 12:30,Vent. rate has | | | | | | decreased BY 34 BPMT | | | | | | wave amplitude has | | | | | | increased in Anterior | | | | | | leadsQT [...] (500), | | | | | | legal editor SANYA DUPONT (8) | | | | | | on 05/20/2013 6:43:53 AM | | | | | | | | | | + + + + + + + + | Specimen | + + | | + + + + + | Narrative | Performed At | + + + | Historically converted procedure from [facility] environment | EXTERNAL LAB | + + + + +---------+ + + | Performing | Address | City/State/Zipcode | Phone Number | | Organization | | | | + +---------+ + + | EXTERNAL LAB | | | | + +---------+ + + XR Chest 2 Vws (05/19/2013 10:38 PM PDT) + + | Specimen | + + | | + + + + + | Impressions | Performed At | + + + | 1. No active intrathoracic disease. | | + + + + + + | Narrative | Performed At | + + + | HISTORY: Chest pain. COMPARISON: 04/18/13. TECHNIQUE: | | | Frontal and lateral films of the chest were obtained. FINDINGS: | | | Heart size is normal. Lungs are clear. Mild-moderate degenerative | | | changes of the spine. | | + + + + + | Procedure Note | + + | Joaquin Ramos Conversion - 09/21/2018 3:31 PM PDT HISTORY: | | Chest pain. | | | | COMPARISON: | | 04/18/13. | | | | TECHNIQUE: | | Frontal and lateral films of the chest were obtained. | | | | FINDINGS: | | Heart size is normal. Lungs are clear. Mild-moderate degenerative changes of the spine. | | | | IMPRESSION: | | 1. No active intrathoracic disease. | | | | | + + ECG 12 lead (05/19/2013 9:29 PM PDT) + + + + + + | Component | Value | Ref Range | Performed | Pathologist | | | | | At | Signature | + + + + + + | DIAGNOSIS: | Marked sinus | | EXTERNAL | | | | bradycardiaAbnormal | | LAB | | | | ECGWhen compared with | | | | | | ECG of 19-APR-2013 | | | | | | 12:30,Vent. rate has | | | | | | decreased BY 31 BPMQT | | | | | | has shortenedThis ECG | | | | | [...] (500), | | | | | | legal editor SANYA DUPONT (8) | | | | | | on 05/20/2013 6:43:52 AM | | | | | | | | | | + + + + + + + + | Specimen | + + | | + + + + + | Narrative | Performed At | + + + | Historically converted procedure from [facility] environment | EXTERNAL LAB | + + + + +---------+ + + | Performing | Address | City/State/Zipcode | Phone Number | | Organization | | | | + +---------+ + + | EXTERNAL LAB | | | | + +---------+ + + Protime INR (05/19/2013 9:20 PM PDT) + + + + + [...] [facility] | | | | | | [facility];[place], [place] | | | | | | [address] | | | | + + + [...] + +---------+ + + External Lab: CBC (05/19/2013 9:20 PM PDT) + + + + + + | Component | Value | Ref Range | Performed | Pathologist | | | | | At | Signature | + + + + + + | WBC | 10.5Comment: Testing | 3.8 - 11.0 K/uL | EXTERNAL | | | | performed at [facility];[address] | | LAB | | | | [address];[place] | | | | | | [address] | | | | + + + + + + | Non- | 4.52Comment: Testing | 4.20 - 5.70 | EXTERNAL | | | Red Blood | performed at [facility];[address] | M/uL | LAB | | | Cells | [address];[place] | | | | | Counted | [id number] | | | | + + + + + + | Hemoglobin | 12.2 (L)Comment: Testing | 13.2 - 17.0 | EXTERNAL | | | | performed at [facility];[address] | g/dL | LAB | | | | [address];[place] | | | | | | [address] | | | | + + + + + + | Hematocrit, | 37.5 (L)Comment: Testing | 39.0 - 50.0 % | EXTERNAL | | | POC | performed at [facility];[address] | | LAB | | | | [address];[place] | | | | | | [address] | | | | + + + + + + | MCV | 82.9Comment: Testing | 80.0 - 100.0 fl | EXTERNAL | | | | performed at [facility];[address] | | LAB | | | | [address];[place] | | | | | | [address] | | | | + + + + + + | MCH | 27.0Comment: Testing | 27.0 - 34.0 pg | EXTERNAL | | | | performed at [facility];[address] | | LAB | | | | [address];[place] | | | | | | [address] | | | | + + + + + + | MCHC | 32.6Comment: Testing | 32.0 - 35.5 | EXTERNAL | | | | performed at [facility];[address] | g/dL | LAB | | | | [address];[place] | | | | | | [address] | | | | + + + + + + | RDW-CV | 45.5Comment: Testing | 37 - 53 fl | EXTERNAL | | | | performed at [facility];[address] | | LAB | | | | [address];[place] | | | | | | [address] | | | | + + + + + + | Platelet | 306Comment: Testing | 150 - 400 K/uL | EXTERNAL | | | Count | performed at [facility];[address] | | LAB | | | Plasma | [address];[place] | | | | | | [address] | | | | + + + + + + | MPV | 7.4Comment: Testing | fl | EXTERNAL | | | | performed at [facility];[address] | | LAB | | | | [address];[place] | | | | | | [address] | | | | + + + + + + | Differentia | AUTOMATEDComment: | | EXTERNAL | | | l Type | Testing performed at | | LAB | | | | [facility];[address];[place] [address] | | | | + + + + + + | % Segmented | 55.1Comment: Testing | % | EXTERNAL | | | | performed at [facility];[address] | | LAB | | | Neutrophils | [address];[place] | | | | | | [address] | | | | + + + + + + | % | 33.0Comment: Testing | % | EXTERNAL | | | Lymphocytes | performed at [facility];[address] | | LAB | | | | [address];[place] | | | | | | [address] | | | | + + + + + + | % Monocytes | 8.7Comment: Testing | % | EXTERNAL | | | | performed at [facility];[address] | | LAB | | | | [address];[place] | | | | | | [address] | | | | + + + + + + | % | 2.8Comment: Testing | % | EXTERNAL | | | Eosinophils | performed at [facility];[address] | | LAB | | | | [address];[place] | | | | | | [address] | | | | + + + + + + | % Basophils | 0.4Comment: Testing | % | EXTERNAL | | | | performed at [facility];[address] | | LAB | | | | [address];[place] | | | | | | [address] | | | | + + + + + + | Absolute | 5.8Comment: Testing | 1.9 - 7.4 K/uL | EXTERNAL | | | Segmented | performed at [facility];[address] | | LAB | | | Neutrophils | [address];[place] | | | | | | [address] | | | | + + + + + + | Absolute | 3.5Comment: Testing | 1.0 - 3.9 K/uL | EXTERNAL | | | Lymphocytes | performed at [facility];[address] | | LAB | | | | [address];[place] | | | | | | [address] | | | | + + + + + + | Absolute | 0.9 (H)Comment: Testing | 0 - 0.8 K/uL | EXTERNAL | | | Monocytes | performed at [facility];[address] | | LAB | | | | [address];[place] | | | | | | [address] | | | | + + + [...] [place] | | | | | | [address] | | | | + + + + + + + + | Specimen | + + | Blood specimen | | (specimen) | + + + +---------+ + + | Performing | Address | City/State/Zipcode | Phone Number | | Organization | | | | + +---------+ + + | EXTERNAL LAB | | | | + +---------+ + + Lipase (05/19/2013 9:20 PM PDT) + + + + + + | Component | Value | Ref Range | Performed | Pathologist | | | | | At | Signature | + + + + + + | Lipase | 185Comment: Testing | 73 - 393 U/L | EXTERNAL | | | | performed at [facility];[address] | | LAB | | | | [address] [facility];[place], [place] | | | | | | [address] | | | | + + + [...] + +---------+ + + Comprehensive Metabolic Panel (05/19/2013 9:20 PM PDT) + + + + + [...] [place] | | | | | | [address] | | | | + + + + + + | K | 4.1Comment: Testing | 3.5 - 4.9 | EXTERNAL | | | | performed at [facility];[address] | mmol/L | LAB | | | | [address];[place] | | | | | | [address] | | | | + + + + + + | Cl | 103Comment: Testing | 99 - 109 mmol/L | EXTERNAL | | | | performed at [facility];[address] | | LAB | | | | [address];[place] | | | | | | [address] | | | | + + + + + + | CO2 | 28Comment: Testing | 23 - 32 mmol/L | EXTERNAL | | | | performed at [facility];[address] | | LAB | | | | [address];[place] | | | | | | [address] | | | | + + + + + + | Anion Gap | 9Comment: Testing | 5 - 20 mmol/L | EXTERNAL | | | | performed at [facility];[address] | | LAB | | | | [address];[place] | | | | | | [address] | | | | + + + + + + | Glucose, | 182 (H)Comment: Testing | 65 - 99 mg/dL | EXTERNAL | | | Fasting | performed at [facility];[address] | | LAB | | | | [address];[place] | | | | | | [address] | | | | + + + + + + | BUN | 22Comment: Testing | 8 - 25 mg/dL | EXTERNAL | | | | performed at [facility];[address] | | LAB | | | | [address];[place] | | | | | | [address] | | | | + + + + + + | Creatinine | 1.45 (H)Comment: Testing | 0.70 - 1.30 | EXTERNAL | | | | performed at [facility];[address] | mg/dL | LAB | | | | [address];[place] | | | | | | [address] | | | | + + + + + + | BUN/Creatin | 15Comment: Testing | | EXTERNAL | | | ine Ratio | performed at [facility];[address] | | LAB | | | | [address];[place] | | | | | | [address] | | | | + + + + + + | Calcium | 8.9Comment: Testing | 8.5 - 10.2 | EXTERNAL | | | | performed at [facility];888 | mg/dL | LAB | | | | [address];[place] | | | | | | [address] | | | | + + + + + + | Protein, | 7.5Comment: Testing | 6.3 - 8.2 g/dL | EXTERNAL | | | Total | performed at [facility];888 | | LAB | | | | [address];[place] | | | | | | [address] | | | | + + + + + + | Albumin | 3.3 (L)Comment: Testing | 3.6 - 5.0 g/dL | EXTERNAL | | | | performed at [facility];888 | | LAB | | | | [address];[place] | | | | | | [address] | | | | + + + + + + | Globulin | 4.2Comment: Testing | 1.3 - 4.9 g/dL | EXTERNAL | | | | performed at [facility];888 | | LAB | | | | [address];[place] | | | | | | [address] | | | | + + + + + + | A/G Ratio | 0.8 (L)Comment: Testing | 1.0 - 2.4 | EXTERNAL | | | | performed at [facility];888 | | LAB | | | | [address];[place] | | | | | | [address] | | | | + + + + + + | Bilirubin | 0.3Comment: Testing | 0.1 - 1.5 mg/dL | EXTERNAL | | | Total | performed at [facility];[address] | | LAB | | | | [address];[place] | | | | | | [address] | | | | + + + + + + | ALP, | 83Comment: Testing | 35 - 115 U/L | EXTERNAL | | | External | performed at [facility];[address] | | LAB | | | | [address];[place] | | | | | | [address] | | | | + + + + + + | AST | 21Comment: Testing | 10 - 45 U/L | EXTERNAL | | | | performed at [facility];[address] | | LAB | | | | [address];[place] | | | | | | [address] | | | | + + + + + + | ALT | 24Comment: Testing | 10 - 65 U/L | EXTERNAL | | | | performed at [facility];888 | | LAB | | | | [facility], [place] | | | | | | [address] | | | | + + + [...] [address];[place] [address] | | | | + + + [...] + +---------+ + + Urinalysis, Microscopic Only (05/19/2013 12:24 AM PDT) + + + + + [...] [place] | | | | | | [address] | | | | + + + + + + | RBC, UA | 0-2Comment: Testing | 0 - 2 /hpf | EXTERNAL | | | | performed at [facility];[address] | | LAB | | | | [address];[place] | | | | | | [address] | | | | + + + + + + | Epithelial | 1-5Comment: Testing | /lpf | EXTERNAL | | | Cells | performed at [facility];[address] | | LAB | | | | [address];[place] | | | | | | [address] | | | | + + + + + + | Bacteria, | TRACE (A)Comment: | | EXTERNAL | | | UA | Testing performed at | | LAB | | | | [facility];[address] | | [address];[place] [address] | | | | + + + + + + + + | Specimen | + + | Urine specimen | | (specimen) | + + + +---------+ + + | Performing | Address | City/State/Zipcode | Phone Number | | Organization | | | | + +---------+ + + | EXTERNAL LAB | | | | + +---------+ + + Culture, Urine (05/19/2013 12:24 AM PDT) + + | Specimen | + + | Urine specimen | | (specimen) | + + + + + | Narrative | Performed At | + + + | Specimen Description CLEAN CATCH URINE CULTURE | EXTERNAL LAB | | NO GROWTH REPORT STATUS | | | FINAL | | | 05/21/2013 | | + + + + +---------+ [...] pain | + + documented in this encounter"
--- OUTSIDE RECORDS SUMMARY | ~2019-09-09 | XMS | Encounter Summary ---
Demographics + + + | Address | [address] | | | [place] [address] | + + + | Home Phone | | + + + | Preferred Language | Unknown | + + + | Marital Status | | + + + | Zoroastrianism Affiliation | 1027 | + + + | Race | Unknown | + + + | Ethnic Group | Unknown | + + + Author + + + | Author | [facility] | | | and [place] | + + + | Organization | [facility] | | | and [place] | + + + | Address | Unknown | + + + | Phone | Unavailable | + + + Support + + + + + | Name | Relationship | Address | Phone | + + + + + | Sammi Kohler | ECON | [place] [address] | | + + + + + Care Team Providers + +------+ + | Care Coloring Checker Name | Role | Phone | + +------+ + PCP | Unavailable | + +------+ + Encounter Details +--------+ + + + + | Date | Type | Department | Care Team | Description | +--------+ + + + + | 03/15/ | Emergency | [facility] | Gurvinder Cruz, | Dizziness | | 2013 - | | MEDICAL CENTER | MD [address] | | | | | EMERGENCY CENTER | [place], [place] | | | 03/16/ | | [address] | [address] | | | 2012 | | [place], [place] | [phone] | | | | | [address] | | | | | | [phone] | | | +--------+ + + + [...] Samy Shrestha RN Service: (none) Author Type: Clean Out Driller Helper Filed: 03/16/12 100 Date of Service: 03/16/121000 Status: Signed Manual Qa Tester: Samy Shrestha RN (Clean Out Driller Helper) Pt states his ex-mother in law will diamond picker and transport home SAMY SHRESTHA RN docume nted in this encounter ED Notes Conversion Transaction, Provider Unknown - 03/16/2012 10:01 AM PSTFormatting of this note m ight be different from the original. ED Notes by Onel Kenney RN at 03/16/12 100 Author: Onel Kenney RN Service: (none) Author Type: Registered Nurse Filed: 03/16/121000 Date of Service: 03/16/121000 Status: Signed Manual Qa Tester: Onel Kenney RN (Registered Nurse) Pt. States his "ex mother-in law is picking him up" Onel Kenney RN 03/16/121000 onver ivana Transaction, Provider Unknown - 03/16/2012 6:04 AM PST ED Notes by Jenn Moralez RN at 03/16/12603 Author: Jenn Moralez RN Service: (none) Author Type: Registered Nurse Filed: 03/16/12604 Date of Service: 03/16/12603 Status: Signed Manual Qa Tester: Jenn Moralez RN (Registered Nurse) Pt does [...] 03/16/12551 Date of Service: 03/16/12551 Status: Signed Manual Qa Tester: Jenn Moralez RN (Registered Nurse) Dr. Cruz at bedside. Jenn Gutierrez RN 03/16/12551 onver ivana Transaction, Provider Unknown - 03/16/2012 2:44 AM PST ED Notes by Jenn Moralez RN at 03/16/12243 Author: Jenn Moralez RN Service: (none) Author Type: Registered Nurse Filed: 03/16/12243 Date of Service: 03/16/12243 Status: Signed Manual Qa Tester: Jenn Moralez RN (Registered Nurse) Patient is resting comfortably. Jenn Gutierrez RN 03/16/12243 onver ivana Transaction, Provider Unknown - 03/16/2012 2:03 AM PST ED Notes by Todd Duarte RN at 03/16/12202 Author: Todd Duarte RN Service: (none) Author Type: Registered Nurse Filed: 03/16/12222 Date of Service: 03/16/12202 Status: Signed Manual Qa Tester: Todd Duarte RN (Registered Nurse) Patient incontinent of bowel. Patient's clothing removed and placed in belongings bag. [facility] provided patient. Patient used BSC and voided. Todd Duarte RN 03/16/12222 ennifer clemente, Gurvinder Anthony MD - 03/15/2012 11:37 PM PST ED Provider Notes by Gurvinder Cruz MD at 03/15/122336 Author: Gurvinder Cruz MD Service: (none) Author Type: Physician Filed: 03/17/12 0358 Date of Service: 03/15/122336 Status: Signed Manual Qa Tester: Gurvinder Cruz MD (Physician) [facility] Department of Emergency Medicine History [...] Component Value Ref Range Date/Time Cardiac Panel [[id number]] (Abnormal) Collected:03/15/12 2315 Order Status:Completed Updated:03/15/12 2350 [...] ng/mL CK-MB Index 0.8 POC cardiac troponin [[id number]] Collected:03/15/122319 Order Status:Completed Updated:03/15/12 2334 POC CARDIAC TROPONIN 0.01 0.00 - 0.10 ng/mL I personally reviewed the lab results and they have been posted to the chart. Pertinent po sitive and negative findings have been addressed appropriately. Radiology and EKG Evaluation Imaging Results XR Acute Abdominal Series (Final result) Result time:03/16/12 8245 Final result by Rad Results In Richard [...] Documented by Gurvinder Cruz MD (03/16/12 0452, [facility] Emergency Department, Emergency Medicine) No free [...] to address your frankie womack [address] [id number] [facility] If symptoms worsen [address] [id number] Discharge Medications: New Prescriptions MECLIZINE (ANTIVERT) 50 MG TABLET Take 1 tablet by mouth 3 (three) times daily as neede dSalty Additional Documentation Procedures Attending Note: Documentation assistance [...] 03/15/122336 Date of Service: 03/15/122336 Status: Signed Manual Qa Tester: Jenn Moralez RN (Registered Nurse) Dr. Cruz at bedside. Jenn Gutierrez RN 03/15/122336 onver ivana Transaction, Provider Unknown - 03/15/2012 10:55 PM PST ED Notes by Vadim Bernal RN at 03/15/122254 Author: Vadim Bernal RN Service: (none) Author Type: Registered Nurse Filed: 03/16/1249 Date of Service: 03/15/122254 Status: Signed Manual Qa Tester: Vadim Bernal RN (Registered Nurse) Per medic [...] | | 2019 | Visit | | LABORATORY COURIER [address] | | | | | | [address] [place], | | | | | | [place] [address] | | | | | | [phone] | | | | | | | | +--------+---------+ + + + | 09/29/ | Office | Urology | Mireya Pack, | | | 2019 | Visit | | LABORATORY COURIER [address] | | | | | | [address] [place], | | | | | | [place] [address] | | | | | | [phone] | | | | | | | | | | | | Toy Wild, DO | | | | | | [address] | | | | | | [place] [address] | | | | | | [phone] | | | | | | | [...] - 09/28/2018 3:24 PM PDT [facility]AL ABDOMEN ACUTE SERIES | | HISTORY:56 years. [...]
--- OUTSIDE RECORDS SUMMARY | ~2019-09-09 | XMS | Encounter Summary ---
Demographics + + + | Address | [address] | | | [place] [address] | + + + | Home Phone [...] Sammi Kohler | ECON | [place] [address] | | + + + + + Care Team Providers + +------+ + | Care Manager Delivery Name | Role | Phone | + [...] + + | 05/12/ | Emergency | [facility] | Norah Calvo, | Type 2 diabetes | | 2020 | | MEDICAL CENTER | [address] | mellitus with | | | | EMERGENCY CENTER | [place] [address] | hyperglycemia, with | | | | [address] | [phone] | long-term current | | | | [place], [place] | | use of insulin (HCC) | | | | [address] | | (Primary Dx) | | | | [phone] | | | +--------+ + + + [...] through Care Everywhere.Diabetes and He art Disease (Irish)Hyperglycemia (High Blood Sugar) (Irish)documented in this encounter Medications at Time of [...] might be different jacqueline m the original. [facility] Department of Emergency Medicine History of Present Illness Patient Identification Norah Andrea Thomas is a 63 y.o. male. Patient presented [...] CHOLECYSTECTOMY; Surgeon: Jevon Vargas DO; Location: [facility] MAIN OR; Service: General; Laterality: N/A; COLONOSCOPY COLONOSCOPY 03/04/2013 Procedure: COLONOSCOPY; Surgeon: Howie Gibson MD; Location: [facility] ENDOSCOPY; Service: Gastroen terology; Laterality: N/A; HERNIA REPAIR 07/03/2013 Procedure: LAPAROSCOPIC - HERNIA - INCISIONAL; Surgeon: Jevon aVrgas DO; Location: [facility] MAIN OR; Service: General; Laterality: N/A; KNEE SURGERY rt knee, patella LEG SURGERY LLE OTHER SURGICAL HISTORY UNLISTED PROCEDURE ARTHROSCOPY OTHER SURGICAL HISTORY Left 05/05/2014 SKIN LESION EXCISION - Procedure: EXCISION - LESION - FROZEN SECTION; Surgeon: Sy murcia MD; Location: [facility]; Service: Plastics; Laterality: Left; forearm SKIN BIOPSY SKIN CANCER EXCISION Left 10/10/2012 Procedure: EXCISION - SKIN CANCER; Surgeon: Sy Fierro MD; Location: [facility]; Service: Plastics; Laterality: Left; upper arm and upper back w/frozen section UPPER GASTROINTESTINAL ENDOSCOPY UPPER GASTROINTESTINAL ENDOSCOPY 03/03/2013 Procedure: ESOPHAGOGASTRODUODENOSCOPY; Surgeon: Howie Gibson MD; Location: [facility] ENDOSCOPY; Se rvice: Gastroenterology; Laterality: N/A; [...] file Gets together: Not on file Attends restoration service: Not on file Active member of [...] Negative for chest pain, Resp: Negative for sdrmkdmyy-bj-wbxhbr GI: Negative for abdominal pain, vomiting : [...] Component Value Ref Range Date/Time POC Glucose [[id number]] (Abnormal) Collected: 05/13/19 1218 Order Status: Completed Updated: 05/13/19 1220 Glucose, POC 238 65 - 99 mg/dL Comprehensive Metabolic Panel [[id number]] (Abnormal) Collected: 05/13/19 111 Order Status: Completed Specimen: Blood Updated: 05/13/19 [...] GFR >60 >60 mL/min/1.73m2 CBC with Differential [[id number]] (Abnormal) Collected: 05/13/19 1114 Order Status: Completed [...] Primary Care Contact information: [address] [facility] [address] [facility] [address] [facility]. Specialty: Emergency Medicine Why: If symptoms worsen Contact information: [address] [facility] [phone] Discharge Medications: Discharge Medication List as of 05/13/2019 12:36 PM Dictation software, [employer], used which may contain error for similar sounding words even af ter review. Personal communication requested for any clarification. MD Norah Galloway MD 05/13/19 1306 John Bliss RN - 05/13/2019 12:33 PM PDTDial a ride will be arranged for patient transport home. Electronic ally signed by John Philippe RN at 05/13/2019 12:34 PM PDTinbo, Jenniffer Andrea RN - 07/2019 11:15 AM PDTBed: ED11 Expected date: Expected time: Means of arrival: Comments: 1823 documented in th is encounter Plan of Treatment +--------+---------+ + + + | Date | Type | Specialty | Care Team | Description | +--------+---------+ + + + | 09/10/ | Office | Geriatric Medicine | Holly Pack, | | 2019 | Visit | | CENSUS ENUMERATOR [address] | | | | | | [address] [place], | | | | | | [place] [address] | | | | | | [phone] | | | | | | | | +--------+---------+ + + + | 09/29/ | Office | Urology | Holly Pack, | | 2019 | Visit | | CENSUS ENUMERATOR [address] | | | | | | [address], | | | | | | [place] [address] | | | | | | [phone] | | | | | | | | | | | | Toy Wild W, DO | | | | | | [address] | | | | | | [place] [address] | | | | | | [phone] | | | | | | | [...] | | n - | | | 04/06/ | | | 2020 | | | 11:17 | | | [...] | | | ON?04/ | | | 06/202 | | | 0 | | | 11:15? | | | GR, | | | NORAH | | | | | | M?MRN: | | | | | | [id number] | | | [id number] | | | riteri | | | [...] | | [facility] | | | [place] | | | [place] | | | [...] | | | [place] | | | Supervisor [employer] | | | al | | | [...] | | | HOLLY, | | | CENSUS ENUMERATOR | | | Nurse | | | [...] | | | [phone] | | | [id number] | | | 48 | | | [...] | | | POC | performed at [facility];[address] | | LABORATORY | | | | [address];[place], [place] | | | | | | [address] | | | | + + + + + + + + | Specimen | + + | | + + + + + + + | Performing | Address | City/State/Zipcode | Phone Number | | Organization | | | | + + + + + | [facility] | [address] | [place] [address] | [phone] | + + + + + Comprehensive [...] | | | | | performed at [facility];[address] | | | | | | [address];[place], [place] | | | | | | [address] | | | | + + + + + + + + | Specimen | + + | Blood | + + + + + + + | Performing | Address | City/State/Zipcode | Phone Number | | Organization | | | | + + + + + | [facility] | [address] [facility] | [place] [address] | [phone] | + + + + + CBC [...] | | | Absolute | performed at [facility];[address] | K/uL | LABORATORY | | | | [address];[place] | | | | | | [address] | | | | + + + + + + + + | Specimen | + + | Blood | + + + + + + + | Performing | Address | City/State/Zipcode | Phone Number | | Organization | | | | + + + + + | [facility] | [address] | [place] [address] | [phone] | + + + + + documented [...]
--- OUTSIDE RECORDS SUMMARY | ~2019-09-09 | XMS | Encounter Summary ---
Demographics + + + | Address | [address] | | | [place] [address] | + + + | Home Phone | | + + + | Preferred Language | Unknown | + + + | Marital Status | | + + + | Gnosticism Affiliation | 1027 | + + + | Race | Unknown | + + + | Ethnic Group | Unknown | + + + Author + + + | Author | [facility] | | | and [place] | + + + | Organization | [facility] | | | and [place] | + + + | Address | Unknown | + + + | Phone | Unavailable | + + + Support + + + + + | Name | Relationship | Address | Phone | + + + + + | Sammi Kohler | ECON | [place] [address] | | + + + + + Care Team Providers + +------+ + | Care Casino Change Attendant Name | Role | Phone | + +------+ + | Mireya Pack NP | PCP | | + +------+ + Reason for Visit + +--------+ + | Reason | Onset | Comments | | | Date | | + +--------+ + | Medication Refill | 07/22/ | | | | 2019 | | + +--------+ + Encounter Details +--------+--------+ + + + | Date | Type | Department | Care Team | Description | +--------+--------+ + + + | 07/22/ | Refill | [facility] | Mel Morton, | Medication Refill | | 2019 | | [facility] [address] | Print Manager | | | | | [address] | | | | | | [place] | | | | | | [address] | | | | | | [phone] | | | +--------+--------+ + + + [...] Notes Telephone Encounter - Tukey, Mel D, Print Manager - 07/23/2019 8:20 AM PDTPharmac y requesting refill. Last appointment was 07/10/2019. Next appointment 07/31/2019.Electronic ally signed by Mel Morton Print Manager at 07/23/2019 8:21 AM PDTdocumented in t his encounter Plan of Treatment +--------+---------+ + + + | Date | Type | Specialty | Care Team | Description | +--------+---------+ + + + | 09/10/ | Office | Geriatric Medicine | Mireya Pack, | | | 2019 | Visit | | PREPARATION DEPARTMENT SUPERVISOR [address] | | | | | | [address] [place], | | | | | | [place] [address] | | | | | | [phone] | | | | | | | | +--------+---------+ + + + | 09/29/ | Office | Urology | Mireya Pack, | | 2019 | Visit | | PREPARATION DEPARTMENT SUPERVISOR [address] | | | | | | [address] [place], | | | | | | [place] [address] | | | | | | [phone] | | | | | | | | | | | | Toy Wild, | | | | | | [address] | | | | | | [place] [address] | | | | | | [phone] | | | | | | | | +--------+---------+ + + + documented as of this encounter Visit Diagnoses + + | Diagnosis | + + | Type 2 diabetes mellitus with diabetic polyneuropathy, with long-term current use of | | insulin (HCC) | + + documented in this [...]
--- OUTSIDE RECORDS SUMMARY | ~2019-09-09 | XMS | Encounter Summary ---
Demographics + + + | Address | [address] | | | [place] [address] | + + + | Home Phone [...] Sammi Kohler | ECON | [place] [address] | | + + + + + Care Team Providers + +------+ + | Care Religious Education Teacher Name | Role | Phone | + +------+ + | Mik Diego DO | PCP | | + +------+ + Encounter Details +--------+ + + + + | Date | Type | Department | Care Team | Description | +--------+ + + + + | 07/29/ | Orders Only | [facility] | Conversion | | | 2015 | | CENTER | Transaction, | | | | | ANTICOAGULATION | Provider Unknown | | | | | [facility] | [phone] | | | | | [address] | (Fax) | | | | | [place], [place] | | | | | | [address] | | | | | | [phone] | | | +--------+ + + + [...] encounter Progress Notes Jaelyn Chiang ARNP - 07/29/2014 10:58 AM PDTFormatting of this note might be different f rom the original. Progress Notes by CITLALY Romo at 07/29/14 1058 Author: CITLALY Romo Service: (none) Author Type: Advanced Registered Nurse Zaina ctitioner Filed: 07/29/14 1100 Encounter Date: 07/29/2014 Status: Signed Supervisor Assembly Department: CITLALY Romo (Advanced Registered Nurse Ricky) S- Maintenance visit. INR check and warfarin dosing. Pt stopped warfarin from 07/07-07/17 due to change in living facilities and lack of medicine . He restarted his warfarin at previously stable dose on 07/17. He is now living alone, with a RN managing his medications for him. No medication changes reported. No illnesses or ER visits. No increased bruising or bleeding. O- INR 2.5 A- Therapeutic INR P- Continue same dosage. Faxed dosing sheet to Leonora Cunha RN at [phone]. Recheck INR in 2 weeks documented in this encounter Plan of Treatment +--------+---------+ + + + | Date | Type | Specialty | Care Team | Description | +--------+---------+ + + + | 09/10/ | Office | Geriatric Medicine | Mireya Pack, | | | 2019 | Visit | | SUPERVISOR INSTANT POTATO PROCESSING [address] | | | | | | [address] [place], | | | | | | [place] [address] | | | | | | [phone] | | | | | | | | +--------+---------+ + + + | 09/29/ | Office | Urology | Mireya Pack, | | | 2019 | Visit | | SUPERVISOR INSTANT POTATO PROCESSING [address] | | | | | | [address] [place], | | | | | | [place] [address] | | | | | | [phone] | | | | | | | | | | | | Toy Wild, DO | | | | | | [address] | | | | | | [place] [address] | | | | | | [phone] | | | | | | | | +--------+---------+ + + + documented as of this encounter Procedures + +--------+ + + + | Procedure Name | Priori | Date/Time | Associated Diagnosis | Comments | | | ty | | | | + +--------+ + + + | POC INR | Routin | 07/29/2014 | | Results for this | | | e | 12:00 AM | | procedure are in the | | | | PDT | | results section. | + +--------+ + + + documented in this encounter Results POC INR (07/29/2014 12:00 AM PDT) + +-------+ + + + | Component | Value | Ref Range | Performed | Pathologist | | | | | At | Signature | + +-------+ + + + | INR | 2.5 | | EXTERNAL | | | | [...]
--- OUTSIDE RECORDS SUMMARY | ~2019-09-09 | XMS | Encounter Summary ---
Demographics + + + | Address | [address] | | | [place] [address] | + + + | Home Phone [...] + | Sammi Kohler | ECON | [place] [address] | | + + + + + Care Team Providers + +------+ + | Care Buffing Turner And Counter Name | Role | Phone | + +------+ + PCP | Unavailable | + +------+ + Encounter Details +--------+ + + + + | Date | Type | Department | Care Team | Description | +--------+ + + + + | 08/29/ | Emergency | [facility] | Ger Llamas, | | | 2013 | | MEDICAL CENTER | [address] | | | | | EMERGENCY CENTER | [place] [address] | | | | | [address] | [phone] | | | | | [place], [place] | | | | | | [address] | | | | | | [phone] | | | +--------+ + + + [...] | | 2019 | Visit | | AOC OPERATIONS INTELLIGENCE OFFICER [address] | | | | | | [address] [place], | | | | | | [place] [address] | | | | | | [phone] | | | | | | | | +--------+---------+ + + + | 09/29/ | Office | Urology | Mireya Pack, | | | 2019 | Visit | | AOC OPERATIONS INTELLIGENCE OFFICER [address] | | | | | | [address] [place], | | | | | | [place] [address] | | | | | | [phone] | | | | | | | | | | | | Toy Wild DO | | | | | | [address] | | | | | | [place] [address] | | | | | | [phone] | | | | | | | | +--------+---------+ + + + documented as of this encounter Visit Diagnoses Not on filedocumented in this encounter"
--- OUTSIDE RECORDS SUMMARY | ~2019-09-09 | XMS | Encounter Summary ---
Demographics + + + | Address | [address] | | | [place] [address] | + + + | Home Phone | | + + + | Preferred Language | Unknown | + + + | Marital Status | | + + + | Shinto Affiliation | 1027 | + + + | Race | Unknown | + + + | Ethnic Group | Unknown | + + + Author + + + | Author | [facility] | | | and [place] | + + + | Organization | [facility] | | | and [place] | + + + | Address | Unknown | + + + | Phone | Unavailable | + + + Support + + + + + | Name | Relationship | Address | Phone | + + + + + | Sammi Kohler | ECON | [place] [address] | | + + + + + Care Team Providers + +------+ + | Care Sheet Metal Contractor Name | Role | Phone | + +------+ + PCP | Unavailable | + +------+ + Encounter Details +--------+ + + + + | Date | Type | Department | Care Team | Description | +--------+ + + + + | 01/19/ | Emergency | [facility] | Ashu Bobo | Non-intractable | | 2015 | | [facility] | MD [place] [address] | vomiting with | | | | EMERGENCY CENTER | [address] [place], [place] | nausea, vomiting of | | | | [address] | [address] | unspecified type; | | | | [place], [place] | [phone] | Chronic pain | | | | [address] | | syndrome; | | | | [phone] | | Hypertension, | | | | | | uncontrolled | +--------+ + + + + Social [...] ED Notes Conversion Transaction, Provider Unknown - 01/19/2015 11:07 PM PSTFormatting of this note m ight be different from the original. ED Notes by Vadim Bernal RN at 01/19/152306 Author: Vadim Bernal RN Service: (none) Author Type: Registered Nurse Filed: 01/19/152307 Date of Service: 01/19/152306 Status: Signed Applications Engineer: Vadim Bernal RN (Registered Nurse) Dr Bobo notified of patient's current blood pressure. No new orders prior to discharge. Vadim Bernal RN 01/19/152307 onver ivana Transaction, Provider Unknown - 01/19/2015 10:20 PM PST ED Notes by Vadim Bernal RN at 01/19/152219 Author: Vadim Bernal RN Service: (none) Author Type: Registered Nurse Filed: 01/19/152219 Date of Service: 01/19/152219 Status: Signed Applications Engineer: Vadim Bernal RN (Registered Nurse) Patient requesting pain medication. Dr Bobo notified. Vadim Bernal RN 01/19/152219 oAshu larsen MD - 01/19/2015 10:00 PM PSTFormatting of this note might be different from th e original. ED Provider Notes by Ashu Bobo MD at 01/19/152199 Author: Ashu Bobo MD Service: -Emergency Author Type: Physician Filed: 01/19/152254 Date of Service: 01/19/152199 Status: Signed Applications Engineer: Ashu Bobo MD (Physician) Procedures Additional Documentation Procedures [facility] Department of Emergency Medicine No flowsheet data found. History of Present Illness Patient Identification Kevyn Guzman is a 59 y.o. male. Patient information was obtained from patient. History/Exam limitations: none. Patient presented to the Emergency Department Car Chief Complaint Chief Complaint Patient presents with Abdominal Pain Emesis Patient presents for evaluation of vomiting. The symptom onset was tonight about 1700 while eating at home, and has had a mostly constant course. Severity: moderate. The symptoms are made worse by PO intake and is relieved by nothing so far. The patient also complains of th e following additional symptoms: abdominal "cramping". The past workup for the patient has included many recent and prior evaluations for similar and unrelated issues. The pertinent past history includes DM. Home care consisted of nothi with no significant spontaneous relief. Possible bad food exposure: yes. Recent antibio tic use: no. Known sick contacts: yes Prior history of similar: yes 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 (transient ischemic attack) long-term (current) use of 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 Past Surgical History Procedure Laterality Date Unlisted procedure arthroscopy Knee surgery rt knee, patella Leg surgery LLE Colonoscopy Cholecystectomy, laparoscopic 09/12/2012 Procedure: LAPAROSCOPIC - CHOLECYSTECTOMY; Surgeon: Jevon Vargas DO; Location: [facility] MAIN OR; Service: General; Laterality: N/A; Abdominal surgery Cholecystectomy Skin cancer excision 10/10/2012 Procedure: EXCISION - SKIN CANCER; Surgeon: Sy Fierro MD; Location: [facility] MAIN OR ; Service: Plastics; Laterality: Left; upper arm and upper back w/frozen section Esophagogastroduodenoscopy 03/03/2013 Procedure: ESOPHAGOGASTRODUODENOSCOPY; Surgeon: Howie Gibson MD; Location: [facility] ENDOSCOPY; S ervice: Gastroenterology; Laterality: N/A; Colonoscopy 03/04/2013 Procedure: COLONOSCOPY; Surgeon: Howie Gibson MD; Location: [facility] ENDOSCOPY; Service: Gastroe nterology; Laterality: N/A; Upper gastrointestinal endoscopy Skin biopsy Hernia repair 07/03/2013 Procedure: LAPAROSCOPIC - HERNIA - INCISIONAL; Surgeon: Jevon Vargas DO; Location: [facility] MAIN OR; Service: General; Laterality: N/A; Skin lesion excision Left 05/05/2014 Procedure: EXCISION - LESION - FROZEN SECTION; Surgeon: Sy Fierro MD; Location: [facility] MAIN OR; Service: Plastics; Laterality: Left; forearm Prior to Admission medications Medication Sig Start Date End Date Taking? Authorizing Provider Albuterol Sulfate (VENTOLIN HFA IN) Inhale 2 puffs into the lungs as needed. 108 mcg/act Historical Provider Ouwdz-N-Iaxsenalgdczg (BEANO) TABS Take 150 Units by mouth [...] 100 mg by mouth nightly. Historical Provider rsiigwrby-suqrnzsw-aerpnyjov hydroxide-simethicone Take 40 mLs by mouth daily [...] packet Take 1 packet by mouth daily. 3/23/15 3/22/ 16 Joe Chao MD selenium sulfide (SELSUN) 2.5 [...] Lives alone x 1 wk, moved from [facility], , 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 2 falls in the last 6 months. Family History Problem Relation Age of Onset Heart disease Father Heart disease Sister Diabetes type II Sister Heart Problems Brother Review of Systems Constitutional: Negative for: fever, chills Eyes: Negative for: Vision changes Throat: Negative for: mouth sores Cardiovascular/Respiratory: Negative for: shortness of breath, cough Gastrointestinal: Negative for: blood in emesis Genitourinary: Negative for: dysuria, hematuria, urinary problems Musculoskeletal: Negative for: new joint pain Skin: Negative for: rash Neuro and psych: Negative for: fainting. Positive for sensation of left arm numbness at o nset. All other review of systems negative except as mentioned. Physical Exam BP 228/101 mmHg | Pulse 61 | Temp(Src) 97.2 F (36.2 C) (Temporal) | Resp 16 | Wt 106.59 5 kg (235 lb) | SpO2 96% Pulse Oximetry Interpretation: Normal VS: HTN noted. Afebrile. General: Alert, in no apparent distress Eyes: Normal inspection, pupils equal and round, non-icteric ENT: Ears normal, moist mucous membranes Nose normal Neck: Normal inspection Supple No lymphadenopathy No meningismus Cardiovascular: Normal rate, rhythm. No murmur. Respiratory: Normal lung sounds. No rales, rhonchi, or wheezing. Abdomen: Soft, tender to palpation of the epigastrum. No guarding or rebound. Back: Normal exam. No CVA tenderness. Extremities: No edema or tenderness Skin: Color normal, good turgor Warm and dry No rash Neuro: No motor deficit No sensory deficit Medical Decision Making and Emergency Department Course ED Department Course Benign overall exam though pt is hypertensive. Will give some IV fluids and antiemetics an d screen. Initial ECG is benign except for expected LVH. TnI normal. Pt requesting pain medication for back pain. This is chronic problem for pt. Pt has care plan. Vomiting resolved. Discussed options with pt, will discharge with refill on his Zofran ODT s. BP 221/102 mmHg | Pulse 64 | Temp(Src) 97.2 F (36.2 C) (Temporal) | Resp 18 | Wt 106.59 5 kg (235 lb) | SpO2 96% Records Reviewed Old medical records. Dozens of prior ED visits noted. I have also noted and reviewed the patient care plan in the EMR. This appears to be the pt's 30th ED visit here in the last 1 2 months. Laboratory Evaluation [facility] CARD PANEL W/O TRP (ED ONLY) - Abnormal; Notable for the following: WBC 12.60 (*) MCV 74.8 (*) MCH 24.0 (*) LYMPHOCYTES ABS 4.07 (*) MONOCYTES ABS 1.13 (*) BASOPHILS ABS 0.19 (*) GLUCOSE 194 (*) CALCIUM 8.2 (*) Albumin 3.2 (*) A/G 0.7 (*) ALK PHOS 165 (*) All other components within normal limits D-DIMER, QUANTITATIVE LIPASE POC CARDIAC TROPONIN Radiology and EKG Evaluation 12-lead ECG: Time of exam 2056. Interpreted independently by me. Rate: 68. Rhythm: NSR. Ectopy: none. Draper: nml. Intervals: LVH. Infarct/Ischemia: none. Technique: Good. Interpretation: LVH, else normal ECG. Prior ECG for comparison: No significant change since yesterday's ECG. Imaging Results None ED Diagnoses Final diagnoses Non-intractable vomiting with nausea, vomiting of unspecified type Chronic pain syndrome Hypertension, uncontrolled Disposition: ED Disposition Discharge Condition at discharge: Improving condition Follow-up Information Follow up With Details Comments Contact Info Jerrell Gutiérrez, DO In 3 days As needed [address] [facility] [address] Discharge Medications: New Prescriptions ONDANSETRON (ZOFRAN-ODT) 8 MG DISINTEGRATING TABLET Take 1 tablet by mouth every 8 (eig ht) hours as needed for Nausea (or vomiting). Ashu Bobo MD 01/19/152254 onversion Transa ction, Provider Unknown - 01/19/2015 9:18 PM PST ED Notes by Vadim Bernal RN at 01/19/152117 Author: Vadim Bernal RN Service: (none) Author Type: Registered Nurse Filed: 01/19/152117 Date of Service: 01/19/152117 Status: Signed Applications Engineer: Vadim Bernal RN (Registered Nurse) Patient vomiting, 200mL light brown emesis noted. Vadim Bernal RN 01/19/152117 onver ivana Transaction, Provider Unknown - 01/19/2015 9:07 PM PST ED Notes by Vadim Bernal RN at 01/19/152106 Author: Vadim Bernal RN Service: (none) Author Type: Registered Nurse Filed: 01/19/152107 Date of Service: 01/19/152106 Status: Signed Applications Engineer: Vadim Bernal RN (Registered Nurse) Patient reports chest pain, back pain and left arm pain since this morning. Also complains of nausea and dizziness. Vadim Bernal RN 01/19/152107 onver ivana Transaction, Provider Unknown - 01/19/2015 9:07 PM PST ED Notes by Vadim Bernal RN at 01/19/152106 Author: Vadim Bernal RN Service: (none) Author Type: Registered Nurse Filed: 01/19/152106 Date of Service: 01/19/152106 Status: Signed Applications Engineer: Vadim Bernal RN (Registered Nurse) ct scan special procedures technologist notified of cardiac monitoring. Vadim Bernal RN 01/19/152106 onver ivana Transaction, Provider Unknown - 01/19/2015 8:57 PM PST ED Notes by Elroy Nowak RN at 01/19/152056 Author: Elroy Nowak RN Service: (none) Author Type: Registered Nurse Filed: 01/19/152056 Date of Service: 01/19/152056 Status: Signed Applications Engineer: Elroy Nowak RN (Registered Nurse) Pt now states that in addition to abdominal pain he is also having chest pain. Elroy Nowak RN 01/19/152056 docume nted in this encounter Plan of Treatment +--------+---------+ + + + | Date | Type | Specialty | Care Team | Description | +--------+---------+ + + + | 09/10/ | Office | Geriatric Medicine | Mireya Pack, | | | 2019 | Visit | | [employer] [address] | | | | | | [address] [place], | | | | | | [place] [address] | | | | | | [phone] | | | | | | | | +--------+---------+ + + + | 09/29/ | Office | Urology | Mireya Pack, | | | 2020 | Visit | | [employer] [address] | | | | | | [address] [place], | | | | | | [place] [address] | | | | | | [phone] | | | | | | | | | | | | Toy Wild, DO | | | | | | [address] | | | | | | [place] [address] | | | | | | [phone] | | | | | | | | +--------+---------+ + + + documented as of this encounter Procedures + +--------+ + + + | Procedure Name | Priori | Date/Time | Associated Diagnosis | Comments | | | ty | | | | + +--------+ + + + | HISTORICAL LAB PANEL | Routin | 01/19/2015 | | Results for this | | RESULT | e | 9:05 PM | | procedure are in the | | | | PST | | results section. | + +--------+ + + + | D-DIMER | Routin | 01/19/2015 | | Results for this | | | e | 9:05 PM | | procedure are in the | | | | PST | | results section. | + +--------+ + + + | LIPASE | Routin | 01/19/2015 | | Results for this | | | e | 9:05 PM | | procedure are in the | | | | PST | | results section. | + +--------+ + + + | ECG 12 LEAD | Routin | 01/19/2015 | | Results for this | | | e | 8:57 PM | | procedure are in the | | | | PST | | results section. | + +--------+ + + + documented in this encounter Results HISTORICAL LAB PANEL RESULT (01/19/2015 9:05 PM PST) + + + + + + | Component | Value | Ref Range | Performed | Pathologist | | | | | At | Signature | + + + + + + | WBC | 12.60 (H)Comment: | 3.80 - 11.00 | EXTERNAL | | | | Testing performed at | K/uL | LAB | | | | [facility];[address] | | | | | | [address];[place] [address] | | | | + + + + + + | Non- | 5.60Comment: Testing | 4.20 - 5.70 | EXTERNAL | | | Red Blood | performed at [facility];[address] | M/uL | LAB | | | Cells | [address];[place] | | | | | Counted | [id number] | | | | + + + + + + | Hemoglobin | 13.4Comment: Testing | 13.2 - 17.0 | EXTERNAL | | | | performed at [facility];[address] | g/dL | LAB | | | | [address];[place] | | | | | | [address] | | | | + + + + + + | Hematocrit, | 41.9Comment: Testing | 39.0 - 50.0 % | EXTERNAL | | | POC | performed at [facility];[address] | | LAB | | | | [address];[place] | | | | | | [address] | | | | + + + + + + | MCV | 74.8 (L)Comment: Testing | 80.0 - 100.0 fl | EXTERNAL | | | | performed at [facility];[address] | | LAB | | | | [address];[place] | | | | | | [address] | | | | + + + + + + | MCH | 24.0 (L)Comment: Testing | 27.0 - 34.0 pg | EXTERNAL | | | | performed at [facility];[address] | | LAB | | | | [address];[place] | | | | | | [address] | | | | + + + + + + | MCHC | 32.1Comment: Testing | 32.0 - 35.5 | EXTERNAL | | | | performed at [facility];[address] | g/dL | LAB | | | | [address];[place] | | | | | | [address] | | | | + + + + + + | RDW-CV | 42.4Comment: Testing | 37 - 53 fl | EXTERNAL | | | | performed at [facility];[address] | | LAB | | | | [address];[place] | | | | | | [address] | | | | + + + + + + | Platelet | 304Comment: Testing | 150 - 400 K/uL | EXTERNAL | | | Count | performed at [facility];[address] | | LAB | | | Plasma | [address];[place] | | | | | | [address] | | | | + + + + + + | MPV | 7.2Comment: Testing | fl | EXTERNAL | | | | performed at [facility];[address] | | LAB | | | | [address];[place] | | | | | | [address] | | | | + + + + + + | Differentia | AUTOMATEDComment: | | EXTERNAL | | | l Type | Testing performed at | | LAB | | | | [facility];[address];[place] [address] | | | | + + + + + + | % Segmented | 54.29Comment: Testing | % | EXTERNAL | | | | performed at [facility];[address] | | LAB | | | Neutrophils | [address];[place] | | | | | | [address] | | | | + + + + + + | % | 32.26Comment: Testing | % | EXTERNAL | | | Lymphocytes | performed at [facility];[address] | | LAB | | | | [address];[place] | | | | | | [address] | | | | + + + + + + | % Monocytes | 8.93Comment: Testing | % | EXTERNAL | | | | performed at [facility];[address] | | LAB | | | | [address];[place] | | | | | | [address] | | | | + + + + + + | % | 3.05Comment: Testing | % | EXTERNAL | | | Eosinophils | performed at [facility];[address] | | LAB | | | | [address];[place] | | | | | | [address] | | | | + + + + + + | % Basophils | 1.47Comment: Testing | % | EXTERNAL | | | | performed at [facility];[address] | | LAB | | | | [address];[place] | | | | | | [address] | | | | + + + + + + | Absolute | 6.84Comment: Testing | 1.90 - 7.40 | EXTERNAL | | | Segmented | performed at [facility];[address] | K/uL | LAB | | | Neutrophils | [address];[place] | | | | | | [address] | | | | + + + + + + | Absolute | 4.07 (H)Comment: Testing | 1.00 - 3.90 | EXTERNAL | | | Lymphocytes | performed at [facility];[address] | K/uL | LAB | | | | [address];[place] | | | | | | [address] | | | | + + + + + + | Absolute | 1.13 (H)Comment: Testing | 0.00 - 0.80 | EXTERNAL | | | Monocytes | performed at [facility];[address] | K/uL | LAB | | | | [address];[place] | | | | | | [address] | | | | + + + + + + | Absolute | 0.38Comment: Testing | 0.00 - 0.50 | EXTERNAL | | | Eosinophils | performed at [facility];[address] | K/uL | LAB | | | | [address];[place] | | | | | | [address] | | | | + + + + + + | Absolute | 0.19 (H)Comment: Testing | 0.00 - 0.10 | EXTERNAL | | | Basophils | performed at [facility];[address] | K/uL | LAB | | | | [address];[place] | | | | | | [address] | | | | + + + + + + | RBC | 1+Comment: | | EXTERNAL | | | Morphology | ANISO1+HYPO1+MICRONORMAL | | LAB | | | | PLT MORPHTesting | | | | | | performed at [facility];[address] | | | | | | [address];[place] | | | | | | [address] | | | | | |MICRO | | | | | |NORMAL PLT MORPH | | | | | |Testing performed at [facility];[address];[place] [address] | | | | | | | | | | + + + + + + | Na | 139Comment: Testing | 135 - 143 | EXTERNAL | | | | performed at [facility];[address] | mmol/L | LAB | | | | [address];[place] | | | | | | [address] | | | | + + + + + + | K | 3.7Comment: SLT | 3.5 - 4.9 | EXTERNAL | | | | HEMOLYSISTesting | mmol/L | LAB | | | | performed at [facility];[address] | | | | | | [address];[place] | | | | | | [address] | | | | + + + + + + | Cl | 101Comment: Testing | 99 - 109 mmol/L | EXTERNAL | | | | performed at [facility];[address] | | LAB | | | | [address];[place] | | | | | | [address] | | | | + + + + + + | CO2 | 28Comment: Testing | 23 - 32 mmol/L | EXTERNAL | | | | performed at [facility];[address] | | LAB | | | | [address];[place] | | | | | | [address] | | | | + + + + + + | Anion Gap | 13Comment: Testing | 5 - 20 mmol/L | EXTERNAL | | | | performed at [facility];[address] | | LAB | | | | [address];[place] | | | | | | [address] | | | | + + + + + + | Glucose, | 194 (H)Comment: Testing | 65 - 99 mg/dL | EXTERNAL | | | Fasting | performed at [facility];[address] | | LAB | | | | [address];[place] | | | | | | [address] | | | | + + + + + + | BUN | 17Comment: Testing | 8 - 25 mg/dL | EXTERNAL | | | | performed at [facility];[address] | | LAB | | | | [address];[place] | | | | | | [address] | | | | + + + + + + | Creatinine | 1.1Comment: Testing | 0.70 - 1.30 | EXTERNAL | | | | performed at [facility];[address] | mg/dL | LAB | | | | [address];[place] | | | | | | [address] | | | | + + + + + + | BUN/Creatin | 16Comment: Testing | | EXTERNAL | | | ine Ratio | performed at [facility];[address] | | LAB | | | | [address];[place] | | | | | | [address] | | | | + + + + + + | Calcium | 8.2 (L)Comment: Testing | 8.5 - 10.5 | EXTERNAL | | | | performed at [facility];[address] | mg/dL | LAB | | | | [address];[place] | | | | | | [address] | | | | + + + + + + | Protein, | 7.6Comment: Testing | 6.3 - 8.2 g/dL | EXTERNAL | | | Total | performed at [facility];[address] | | LAB | | | | [address];[place] | | | | | | [address] | | | | + + + + + + | Albumin | 3.2 (L)Comment: Testing | 3.3 - 4.8 g/dL | EXTERNAL | | | | performed at [facility];[address] | | LAB | | | | [address];[place] | | | | | | [address] | | | | + + + + + + | Globulin | 4.4Comment: Testing | 1.3 - 4.9 g/dL | EXTERNAL | | | | performed at [facility];[address] | | LAB | | | | [address];[place] | | | | | | [address] | | | | + + + + + + | A/G Ratio | 0.7 (L)Comment: Testing | 1.0 - 2.4 | EXTERNAL | | | | performed at [facility];[address] | | LAB | | | | [address];[place] | | | | | | [address] | | | | + + + + + + | Bilirubin | 0.2Comment: Testing | 0.1 - 1.5 mg/dL | EXTERNAL | | | Total | performed at [facility];[address] | | LAB | | | | [address];[place] | | | | | | [address] | | | | + + + + + + | ALP, | 165 (H)Comment: Testing | 35 - 115 U/L | EXTERNAL | | | External | performed at [facility];[address] | | LAB | | | | [address];[place] | | | | | | [address] | | | | + + + + + + | AST | 23Comment: SLT | 10 - 45 U/L | EXTERNAL | | | | HEMOLYSISTesting | | LAB | | | | performed at [facility];[address] | | | | | | [address];[place] | | | | | | [address] | | | | + + + + + + | ALT | 29Comment: Testing | 10 - 65 U/L | EXTERNAL | | | | performed at [facility];[address] | | LAB | | | | [address];[place] | | | | | | [address] | | | | + + + [...] | | | | | | at [facility];[address];[place] [address] | | | | + + + + + + | CK, Total | 107Comment: Testing | 55 - 400 U/L | EXTERNAL | | | | performed at [facility];[address] | | LAB | | | | [address];[place] | | | | | | [address] | | | | + + + [...] | | | | | performed at [facility];[address] | | | | | | [address];[place] | | | | | | [address] | | | | + + + + + + | aPTT, | 31Comment: Testing | 23 - 32 seconds | EXTERNAL | | | Patient | performed at [facility];[address] | | LAB | | | | [address];[place] | | | | | | [address] | | | | + + + + + + | CK-MB | 2.6Comment: Testing | 0.5 - 3.6 ng/mL | EXTERNAL | | | | performed at [facility];[address] | | LAB | | | | [address];[place] | | | | | | [address] | | | | + + + [...] | | + +---------+ + + D-Dimer (01/19/2015 9:05 PM PST) + + + + + + | Component | Value | Ref Range | Performed | Pathologist | | | | | At | Signature | + + + + + + | D-DIMER, | 0.40Comment: D Dimer | 0.19 - 0.50 | [...] | | | | | performed at [facility];[address] | | | | | | [address] [facility];[place], [place] | | | | | | [address] | | | | + + + + + + + + | Specimen | + + | | + + + +---------+ + + | Performing | Address | City/State/Zipcode | Phone Number | | Organization | | | | + +---------+ + + | EXTERNAL LAB | | | | + +---------+ + + Lipase (01/19/2015 9:05 PM PST) + + + + + + | Component | Value | Ref Range | Performed | Pathologist | | | | | At | Signature | + + + + + + | Lipase | 235Comment: Testing | 73 - 393 U/L | EXTERNAL | | | | performed at [facility] | | LAB | | | | [address];[place] | | | | | | [address] | | | | + + + + + + + + | Specimen | + + | | + + + +---------+ + + | Performing | Address | City/State/Zipcode | Phone Number | | Organization | | | | + +---------+ + + | EXTERNAL LAB | | | | + +---------+ + + ECG 12 lead (01/19/2015 8:57 PM PST) + + + + + + | Component | Value | Ref Range | Performed | Pathologist | | | | | At | Signature | + + + + + + | DIAGNOSIS: | Normal sinus | | EXTERNAL | | | | rhythmMinimal voltage | | LAB | | | | criteria for LVH, may be | | | | | | normal | | | | | | variantBorderline | | | | | | ECGWhen compared with | | | | | | ECG of 18-JAN-2015 | | | | | | 06:19,No significant | | | | | | [...] (500), | | | | | | city editor Nola Avila | | | | | | (15) on 01/19/2015 | | | | | | 9:57:46 PM | | | | + + + + + + + + | Specimen | + + | | + + + + + | Narrative | Performed At | + + + | Historically converted procedure from [employer] environment | EXTERNAL LAB | + + + + +---------+ + + | Performing | Address | City/State/Zipcode | Phone Number | | Organization | | | | + +---------+ + + | EXTERNAL LAB | | | | + +---------+ + + documented in this encounter Visit Diagnoses + + | Diagnosis | + + | Non-intractable vomiting with nausea, vomiting of unspecified type | + + | Chronic pain syndrome | + + | Hypertension, uncontrolled Unspecified essential hypertension | + + documented in this encounter
--- OUTSIDE RECORDS SUMMARY | ~2019-09-09 | XMS | Encounter Summary ---
Demographics + + + | Address | [address] | | | [place] [address] | + + + | Home Phone [...] + | Sammi Kohler | ECON | [place] [address] | | + + + + + Care Team Providers + +------+ + | Care Research Program Assistant Name | Role | Phone | [...] + + + + + + | Authorizatio | Specialty | Gastroenterol | Diagnoses | Sirena, | Jeremias | | n not | Services | ogy | Colon | Mireya Calixto NP | Gastroenterol | | Required | Required | | cancer | [address] | o[address] | | | | | screening | [address] | [address] | | | | | Irregular | [address] | [place], [place] | | | | | bowel habits | [place] | [address] | | | | | | [address] | Phone: | | | | | | Phone: | [phone] | | | | | | [phone] | Fax: | | | | | | Fax: | [phone] | | | | | | [phone] | | + + + + + + + Evaluate & Treat (Routine) + + + + + + + | Status | Reason | Specialty | Diagnoses / | Referred By | Referred To | | | | | Procedures | Contact | Contact | + + + + + + + | Authorizatio | Specialty | Dermatology | Diagnoses | Sirena | Jeremias | | n not | Services | | Skin cancer | Mireya Calixto NP | Dermatology | | Required | Required | | screening | [address] | [address] | | | | | | [address] | | | | | | [address] | [place], [place] | | | | | | [place] | [address] | | | | | | [address] | Phone: | | | | | | Phone: | [phone] | | | | | | [phone] | Fax: | | | | | | Fax: | [phone] | | | | | | [phone] | | + + + + + + + Evaluate & Treat (Routine) +--------+ + + [...] | | lower | [address] | [place], [place] | | | | | urinary | [address] | [address] | | | | | tract | [place], [place] | Phone: | | | | | symptoms | [address] | [phone] | | | | | | Phone: | Fax: | | | | | | [phone] | [phone] | | | | | | Fax: | | | | | | | [phone] | | +--------+ + + + + + Encounter Details +--------+---------+ + + + | Date | Type | Department | Care Team | Description | +--------+---------+ + + + | 12/26/ | Office | [facility] [place] | Mireya Pack, | Paroxysmal atrial | | 2019 | Visit | [facility] | SUPERVISOR PAPER MACHINE [address] | fibrillation (HCC) | | | | [address] | [address] [place], | (Primary Dx); | | | | [place], [place] | [place] [address] | Essential | | | | [address] | [phone] | hypertension; Type 2 | | | | [phone] | | diabetes mellitus | | | | | | with diabetic | | | | | | polyneuropathy, with | | | | | | long-term current | | | | | | use of insulin | | | | | | (HCC); BPH with | | | | | | obstruction/lower | | | | | | urinary tract | | | | | | symptoms; | | | | | | Gastroesophageal | | | | | | reflux disease, | | | | | | esophagitis presence | | | | | | not specified; Skin | | | | | | cancer screening; | | | | | | Need for hepatitis C | | | | | | screening test; | | | | | | Colon cancer | | | | | | screening; Irregular | | | | | | bowel habits | +--------+---------+ + + + Social History [...] + + + | Blood Pressure | 152/70 | 12/26/2018 12:22 PM | | | | | PST | | + + + + + | Pulse | 82 | 12/26/2018 12:22 PM | | | | | PST | | + + + + + | Temperature | 36.5 C (97.7 F) | 12/26/2018 12:22 PM | | | | | PST | | + + + + + | Respiratory Rate | 16 | 12/26/2018 12:22 PM | | | | | PST | | + + + + + | Oxygen Saturation | 95% | 12/26/2018 12:22 PM | | | | | PST | | + + + + + | Inhaled Oxygen | - | - | | | Concentration | | | | + + + + + | Weight | 97.7 kg (215 lb 6.4 | 12/26/2018 12:22 PM | | | | oz) | PST | | + + + + + | Height | - | - | | + + + + + | Body Mass Index | 30.04 | 12/13/2018 9:49 PM | | | [...] Instructions Patient Instructions Mireya Pack NP - 12/26/2018 12:30 PM PSTIncrease your levemir: - insulin detemir (LEVEMIR FLEXTOUCH) 100 units/mL injection (pen); Inject 60 Units und er the skin nightly. Call if your morning blood sugars < 100 Sent order to your pharmacy to Stop pravastatin Start - atorvaSTATin (LIPITOR) 40 mg tablet; Take 1 tablet by mouth nightly. Start taking acid deckhand tuna boat for the pain in chest area (may be heartburn): (rx sent to pharmacy) - omeprazole (PRILOSEC) 20 mg capsule; Take 1 capsule by mouth every morning (before br eakfast). BPH with obstruction/lower urinary tract symptoms - Ambulatory Referral to [facility] Skin cancer screening - Ambulatory referral to [facility] Colon cancer screening - Ambulatory Referral to [facility] documented in this encounter Progress Notes Mireya Pack NP - 12/26/2018 12:30 PM PSTFormatting of this note might be different fr om the original. Subjective: Patient ID: Kevyn Guzman is a 63 y.o. male Patient presents for hospitalization at [facility] 12/12/18-12/13/18 presented for chest pain. Hosp ital records indicate: Troponin initially was negative but repeat troponin is 0.041. Chest xray was negative. Due to change in troponin patient was initiated on heparin infusion and admitted for further wor kup. Serial troponins were drawn which were negative. His chest pain persisted in the mornin g and was quite reproducible with light palpation. Suspect it is MSK in etiology vs less lik charisse GERD. Patient presented back to [facility] ED 12/13/18 for c/o palpitations and heaviness in chest. ECG: Sinus rhythm at 77 bpm. IL, QRS, and axis are normal. No ST segment elevations or depressi on. No significant Q waves. Good R wave progression through the precordial leads. Meets No S PRIYANK criteria for ischemia. labs unremarkable. Patient discharged Patient contacted by clinical nurse 12/14/18 to arrange TCM appointment. No concerns at that time. Significant history of: Past Medical History: Diagnosis [...] CHOLECYSTECTOMY; Surgeon: Jevon Vargas DO; Location: [facility] MAIN OR; Service: General; Laterality: N/A; COLONOSCOPY COLONOSCOPY 03/04/2013 Procedure: COLONOSCOPY; Surgeon: Howie Gibson MD; Location: [facility] ENDOSCOPY; Service: Gastroen terology; Laterality: N/A; [...] FROZEN SECTION; Surgeon: Sy murcia MD; Location: [facility] MAIN OR; Service: Plastics; Laterality: Left; forearm SKIN BIOPSY SKIN CANCER EXCISION Left 10/10/2012 Procedure: EXCISION - SKIN CANCER; Surgeon: Sy Fierro MD; Location: [facility] MAIN OR; Service: Plastics; Laterality: Left; upper arm and upper back w/frozen section UPPER GASTROINTESTINAL ENDOSCOPY UPPER GASTROINTESTINAL ENDOSCOPY 03/03/2013 Procedure: ESOPHAGOGASTRODUODENOSCOPY; Surgeon: Howie Gibson MD; Location: [facility] ENDOSCOPY; rvice: Gastroenterology; Laterality: N/A; Social History Socioeconomic [...] tablet 4 aspirin 81 MG tablet Take 1 tablet by mouth Daily. 30 tablet 4 Blood Glucose Monitoring Suppl (BLOOD GLUCOSE MONITOR [...] route 4 times daily. 204 each 0 lisinopril (PRINIVIL, ZESTRIL) 10 mg tablet Take 2 tablets by mouth Daily. 60 tablet 4 metFORMIN (GLUCOPHAGE) 500 mg tablet Take 1 tablet by mouth 2 times daily (with breakfa st & dinner). 60 tablet 4 NIFEdipine (ADALAT CC) 60 MG 24 hr tablet Take 1 tablet by mouth Daily. 30 tablet 4 pravastatin (PRAVACHOL) 40 MG tablet Take 80 mg by mouth nightly. tamsulosin (FLOMAX) 0.4 mg CAPS Take 1 capsule by mouth 2 times daily. 60 capsule 4 No current facility-administered medications for this visit. HPI Patient reports compliance with medications. Has had 1 episode of syncope at home but he kelley d w/u at ED with no medication changes recommended. BS is "good" 200-300, no BS < 200 in am fasting. Higher BS based on diet Still wakes 2-3 times nightly to urinate and frequency during day would like to discuss Has lump to neck would like evaluated Patient's medications, allergies, past medical, surgical, social and family histories were obtained and reviewed as appropriate. Review of Systems Constitutional: Negative for activity change, appetite change, chills, fatigue, fever and u nexpected weight change. Respiratory: Positive for cough (occasional) and chest tightness. Negative for shortness of breath and wheezing. Cardiovascular: Positive for chest pain (mostly at night). Negative for leg swelling. Gastrointestinal: Positive for abdominal pain (side pain), constipation (occasional) and di arrhea (occasional). Negative for abdominal distention. Genitourinary: Positive for difficulty urinating. Musculoskeletal: Negative for arthralgias, back pain and gait problem. Skin: Positive for rash (chest). Negative for wound. Psychiatric/Behavioral: Positive for dysphoric mood (all the time) and sleep disturbance (h aving problems sleeping more than 4 hours at a time). The patient is nervous/anxious (off an d on). Objective: Physical Exam Constitutional: General: He is not in acute distress. Appearance: He is well-developed. He is not diaphoretic. Comments: Dressed appropriately for weather in unclean clothing HENT: Head: Normocephalic and atraumatic. Mouth/Throat: Pharynx: [...] is no mass. Tenderness: There is no tenderness. There is no guarding or rebound. Hernia: No hernia is present. Musculoskeletal: Normal range of motion. Skin: General: Skin is warm and dry. Findings: Rash (generalized flaking c/w poor hygeine) present. No erythema. Comments: Posterior neck with skin tag Neurological: Mental Status: He is alert and oriented to person, place, and time. Psychiatric: Speech: Speech normal. Cognition and Memory: Memory is not impaired. BP 152/70 | Pulse 82 | Temp 36.5 C (97.7 F) | Resp 16 | Wt 97.7 kg (215 lb 6.4 oz) | SpO2 95% | BMI 30.04 kg/m Lab Results Component Value Date NA 142 12/13/2018 CL 108 12/13/2018 K 3.8 12/13/2018 CO2 26 12/13/2018 BUN 16 12/13/2018 EGFR >60 12/13/2018 GLUF 292 (H) 09/21/2018 GLOB 2.7 09/21/2018 BILITOT 0.5 09/21/2018 AST 26 12/13/2018 ALT 18 12/13/2018 Lab Results Component Value Date WBC 12.10 (H) 12/13/2018 HGB 14.6 12/13/2018 HCT 41.9 12/13/2018 MCV 81.9 12/13/2018 PLT 253 12/13/2018 Lab Results Component Value Date CHOL 151 12/13/2018 TRIG 280 (H) 12/13/2018 HDL 30 (L) 12/13/2018 LDL 65 12/13/2018 Lab Results Component Value Date CHOL 151 12/13/2018 CHOL 166 10/12/2018 CHOL 130 09/14/2018 Lab Results Component Value Date HDL 30 (L) 12/13/2018 HDL 26 (L) 10/12/2018 HDL 23 (L) 09/14/2018 Lab Results Component Value Date LDL 65 12/13/2018 LDL LDL NOT VALID WHEN TRIG >400 mg/dL 10/12/2018 No results found for: LDLDIRECT Lab Results Component Value Date TRIG 280 (H) 12/13/2018 TRIG 498 (H) 10/12/2018 TRIG 375 (H) 09/14/2018 No results found for: CHOLHDL Lab Results Component Value Date HBA1C 11.0 (H) 10/14/2018 No components found for: [id number], PTHINT No results found for: [id number] No results found for: TSH, T4 No results found for: IRON, TIBC, FERRITIN . No results found for: FERRITIN Assessment/Plan: Diagnoses and all orders for this visit: Paroxysmal atrial fibrillation (HCC) Rate controlled, continue anticoagulation eliquis Essential hypertension Moderately elevated initial on exam, repeat manual 125/55 continue lisinopril Type 2 diabetes mellitus with diabetic polyneuropathy, with long-term current use of insuli n (HCC) Uncontrolled per patient report, Increase basal Return to clinic to diabetic log Intensify statin - atorvaSTATin (LIPITOR) 40 mg tablet; Take 1 tablet by mouth nightly. Due for multiple preventative care, referrals placed BPH with obstruction/lower urinary tract symptoms - Ambulatory Referral to [facility] Gastroesophageal reflux disease, esophagitis presence not specified Start ppi gi proph Skin cancer screening - Ambulatory referral to [facility] Need for hepatitis C screening test - Hepatitis C Ab; Future Colon cancer screening - Ambulatory Referral to [facility] Irregular bowel habits - Ambulatory Referral to [facility] Other orders - omeprazole (PRILOSEC) 20 mg capsule; Take 1 capsule by mouth every morning (before br eakfast). - insulin detemir (LEVEMIR FLEXTOUCH) 100 units/mL injection (pen); Inject 60 Units und er the skin nightly. documented in this e ncounter Plan of Treatment +--------+---------+ + + + | Date | Type | Specialty | Care Team | Description | +--------+---------+ + + + | 09/10/ | Office | Geriatric Medicine | Mireya Pack, | | | 2019 | Visit | | SUPERVISOR PAPER MACHINE [address] | | | | | | [address] [place], | | | | | | [place] [address] | | | | | | [phone] | | | | | | | | +--------+---------+ + + + | 09/29/ | Office | Urology | Mireya Pack, | | | 2019 | Visit | | SUPERVISOR PAPER MACHINE [address] | | | | | | [facility] [address] [place], | | | | | | [place] [address] | | | | | | [phone] | | | | | | | | | | | | Toy Wild, DO | | | | | | [address] | | | | | | [place] [address] | | | | | | [phone] | | | | | | | | +--------+---------+ + + + + +------+--------+ + + | Name | Type | Priori | Associated Diagnoses | Order Schedule | | | | ty | | | + +------+--------+ + + | Hepatitis C Ab | Lab | Routin | Need for hepatitis | Expected: | | | | e | C screening test | 12/26/2018, Expires: | | | | | | 12/26/2019 | + +------+--------+ + + + + +--------+ + + | Name | Type | Priori | Associated Diagnoses | Order Schedule | | | | ty | | | + + +--------+ + + | Ambulatory Referral | Outpatient | Routin | BPH with | Ordered: 12/26/2018 | | to [facility] | Referral | e | obstruction/lower | | | | | | urinary tract | | | | | | symptoms | | + + +--------+ + + | Ambulatory referral | Outpatient | Routin | Skin cancer | Ordered: 12/26/2018 | | to [facility] | Referral | e | screening | | | Dermatology | | | | | + + +--------+ + + | Ambulatory Referral | Outpatient | Routin | Colon cancer | Ordered: 12/26/2018 | | to [facility] | Referral | e | screening Irregular | | | Gastroenterology | | | bowel habits | | + + +--------+ + + documented as of this encounter Visit Diagnoses + + | Diagnosis | + + | Paroxysmal atrial fibrillation (HCC) - Primary Atrial fibrillation | + + | Essential hypertension Unspecified essential hypertension | + + | Type 2 diabetes mellitus with diabetic polyneuropathy, with long-term current use of | | insulin (HCC) | + + | BPH with obstruction/lower urinary tract symptoms Hypertrophy of prostate with | | urinary obstruction and other lower urinary tract symptoms (LUTS) | + + | Gastroesophageal reflux disease, esophagitis presence not specified | + + | Skin cancer screening Screening for malignant neoplasm of the skin | + + | Need for hepatitis C screening test Special screening examination for other specified | | viral diseases | + + | Colon cancer screening Special screening for malignant neoplasms, colon | + + | Irregular bowel habits Other specified disorder of intestines | + + documented in this encounter
--- OUTSIDE RECORDS SUMMARY | ~2019-09-09 | XMS | Encounter Summary ---
Demographics + + + | Address | [address] | | | [place] [address] | + + + | Home Phone [...] Sammi Kohler | ECON | [place] [address] | | + + + + + Care Team Providers + +------+ + | Care Manager Installation Name | Role | Phone | + [...] + + | 07/14/ | Telephone | [facility] | Mireya Pack, | Triage | | 2020 | | [facility] [address] | ROBOTICS SOFTWARE ENGINEER [address] | | | | | [address] | [address] [place], | | | | | [place], [place] | [place] [address] | | | | | [address] | [phone] | | | | | [phone] | | | +--------+ + + + [...] call from Araseli, Please call her at [phone] Heidi Moody elephone Encounter - Mireya Liu [...] sure if he could get neighbor to merchandise pickup/receiving associate ant ibiotic if prescribed. Given his social situation unable to obtain care in timely fashion outpatient, I recommende d he present to ED for r/o cdiff and treatment diarrhea I would recommend case management consult in ED and consider SNF placement for possible tra nsition to [facility] in future. elephone Encounter - Mireya Pack NP - 07/15/2019 11:06 AM PDTLeft voicemail on patient phone and recommen ded we discuss his symptoms further and evaluate plan of care. Left [facility] as most direct way to contact me. [...] to the ER. Please call him at [phone] Heidi Moody documented in this enco unter Plan of Treatment +--------+---------+ + + + | Date | Type | Specialty | Care Team | Description | +--------+---------+ + + + | 09/10/ | Office | Geriatric Medicine | Mireya Pack, | | 2019 | Visit | | ROBOTICS SOFTWARE ENGINEER [address] | | | | | | [address] [place], | | | | | | [place] [address] | | | | | | [phone] | | | | | | | | +--------+---------+ + + + | 09/29/ | Office | Urology | Mireya Pack, | | | 2019 | Visit | | ROBOTICS SOFTWARE ENGINEER [address] | | | | | | [address] [place], | | | | | | [place] [address] | | | | | | [phone] | | | | | | | | | | | | Toy Wild, DO | | | | | | [address] | | | | | | [place] [address] | | | | | | [phone] | | | | | | | [...]
--- OUTSIDE RECORDS SUMMARY | ~2019-09-09 | XMS | Encounter Summary ---
Demographics + + + | Address | [address] | | | [place] [address] | + + + | Home Phone | | + + + | Preferred Language | Unknown | + + + | Marital Status | | + + + | Jew Affiliation | 1027 | + + + [...] Sammi Kohler | ECON | [place] [address] | | + + + + + Care Team Providers + +------+ + | Care Wheelabrator Operator Name | Role | Phone | + +------+ + | Mireya Pack NP | PCP | | + +------+ + Reason for Visit + + + | Reason | Comments | + + + | Diabetes | | + + + Encounter Details +--------+---------+ + + + | Date | Type | Department | Care Team | Description | +--------+---------+ + + + | 03/27/ | Office | [facility] | Mireya Pack, | Uncontrolled type 2 | | 2020 | Visit | [facility] | NET MAKING SUPERVISOR [address] | diabetes mellitus | | | | [address] | [address] [place], | with hyperglycemia | | | | [place], [place] | [place] [address] | ([facility]LY [facility]) (Primary Dx); | | | | [address] | [phone] | Vertigo; Impacted | | | | [phone] | | cerumen, left ear; | | | | | | BPH with | | | | | | obstruction/lower | | | | | | urinary tract | | | | | | symptoms | +--------+---------+ + + + Social History [...] + + + | Blood Pressure | 162/94 | 03/27/2019 3:05 PM | | | | | PST | | + + + + + | Pulse | 74 | 03/27/2019 3:05 PM | | | | | PST | | + + + + + | Temperature | 37.4 C (99.3 F) | 03/27/2019 3:05 PM | | | | | PST | | + + + + + | Respiratory Rate | 16 | 03/27/2019 3:05 PM | | | | | PST | | + + + + + | Oxygen Saturation | 98% | 03/27/2019 3:05 PM | | | | | PST | | + + + + + | Inhaled Oxygen | - | - | | | Concentration | | | | + + + + + | Weight | 98.2 kg (216 lb 8 | 03/27/2019 3:05 PM | | | | oz) | PST | | + + + + + | Height | - | - | | + + + + + | Body Mass Index | 30.2 | 03/12/2019 8:57 AM | | | [...] Instructions Patient Instructions Mireya Pack NP - 03/27/2019 3:00 PM PSTDrops to left ear twice daily for 5 days and then Nurse visit for ear lavage Increase your Levemir 45 units twice daily (morning and bedtime) conitue novolog 10 units with meals and extra 5 units if > 300 If remains > 300 by Monday than call clinic for more instructions documented in this encounter Progress Notes Mireya Pack NP - 03/27/2019 3:00 PM PSTFormatting of this note might be different fr om the original. Subjective: Patient ID: Kevyn Guzman is a 63 y.o. male Patient presents for office visit on diabetes. Significant history of: Past Medical History: Diagnosis Date Acute pulmonary embolism (HCC) 10/14/2017 Anxiety ARF (acute renal failure) ([facility]) 03/02/2013 Atrial fibrillation ([facility]) Basal cell carcinoma 09/26/2012 arm and back COPD (chronic obstructive pulmonary disease) ([facility]) 03/02/2013 hypoxemia on 2 lts nc Depression Development delay Diabetes mellitus type II DVT (deep venous thrombosis) ([facility]) 03/29/2018 Facial droop 07/08/2013 GIB [...] - CHOLECYSTECTOMY; Surgeon: Jevon Vargas DO; Location: [facility] MAIN OR; Service: General; Laterality: N/A; COLONOSCOPY COLONOSCOPY 03/04/2013 Procedure: COLONOSCOPY; Surgeon: Howie Gibson MD; Location: [facility] ENDOSCOPY; Service: Gastroen terology; Laterality: [...] FROZEN SECTION; Surgeon: Sy murcia MD; Location: [facility]; Service: Plastics; Laterality: Left; forearm SKIN BIOPSY SKIN CANCER EXCISION Left 10/10/2012 Procedure: EXCISION - SKIN CANCER; Surgeon: Sy Fierro MD; Location: [facility] OR; Service: Plastics; Laterality: Left; upper arm and upper back w/frozen section UPPER GASTROINTESTINAL ENDOSCOPY UPPER GASTROINTESTINAL ENDOSCOPY 03/03/2013 Procedure: ESOPHAGOGASTRODUODENOSCOPY; Surgeon: Howie Gibson MD; Location: [facility] ENDOSCOPY; Se rvice: Gastroenterology; Laterality: [...] F)). (Patient not taking: Reported on 03/12/2019) 30 tablet 1 apixaban (ELIQUIS) 5 mg [...] Inject 60 Units under the skin nightly. 12 mL [...] 1 tablet by mouth Daily. (Patient not sb guthrie: Reported on 03/12/2019) 30 tablet 4 omeprazole (PRILOSEC) 20 mg capsule Take 1 capsule by mouth every morning (before break fast). 30 capsule 4 tamsulosin (FLOMAX) 0.4 mg CAPS Take 1 capsule by mouth 2 times daily. 60 capsule 4 No current facility-administered medications for this visit. HPI Patient reports that glucose testing this morning was about 400's. Reports compliancew ith insulin and CCHO diet. Patient states feels as when he urinates feels pressure and difficult to urinate which has been an ongoing issue. Patient states dizziness on and off for the past week. Patient's medications, allergies, past medical, surgical, social and family histories were obtained and reviewed as appropriate. Review of Systems Constitutional: Negative for activity change, appetite change, chills, diaphoresis, fever a nd unexpected weight change. Respiratory: Negative for cough and shortness of breath. Cardiovascular: Negative for chest pain and leg swelling. Gastrointestinal: Negative for abdominal pain and blood in stool. Genitourinary: Negative for dysuria. Neurological: Positive for dizziness (1 week now. ). Negative for syncope, speech difficult y, weakness, numbness and headaches. Objective: Physical Exam Constitutional: General: He is not in acute distress. Appearance: He is well-developed. He is not diaphoretic. HENT: Head: Normocephalic and atraumatic. Right Ear: Tympanic membrane normal. Left Ear: There is impacted cerumen. Ears: Comments: Impacted hard cerumen unable to remove Mouth/Throat: Pharynx: No oropharyngeal exudate. Eyes: Conjunctiva/sclera: [...] and Memory: Memory is not impaired. BP (!) 162/94 | Pulse 74 | Temp 37.4 C (99.3 F) (Temporal) | Resp 16 | Wt 98.2 kg ( 216 lb 8 oz) | SpO2 98% | BMI 30.20 kg/m Lab Results Component Value Date NA 137 03/21/2019 CL 104 03/21/2019 K 3.7 03/21/2019 CO2 24 03/21/2019 BUN 15 03/21/2019 EGFR >60 03/21/2019 GLUF 292 (H) 09/21/2018 GLOB 2.7 09/21/2018 BILITOT 0.5 09/21/2018 AST 24 03/21/2019 ALT 26 03/21/2019 Lab Results Component Value Date WBC 10.10 03/21/2019 HGB 15.2 03/21/2019 HCT 43.5 03/21/2019 MCV 81.3 03/21/2019 PLT 253 03/21/2019 Lab Results Component Value Date CHOL 182 [...] 11.0 (H) 10/14/2018 No components found for: [id number], PTHINT No results found for: [id number] Lab Results Component Value Date TSH 1.820 09/14/2018 No results found for: IRON, TIBC, FERRITIN . No results found for: FERRITIN Assessment/Plan: Kevyn was seen today for diabetes. Diagnoses and all orders for this visit: Uncontrolled type 2 diabetes mellitus with hyperglycemia (HCC) Reviewed [facility] diet, insulin management and hyperglycemia teaching Labs due Insulin dose adjustment - POC Glucose - Comprehensive Metabolic Panel; Future - Cancel: Hemoglobin A1C; Future - Cancel: CBC no Differential; Future - TSH, Reflex Free T4; Future - Cancel: Lipid Panel; Future - CK Total; Future - Cancel: Comprehensive Metabolic Panel; Future - CBC with Differential; Future - Hemoglobin A1C; Future Vertigo Impacted cerumen, left ear Reviewed ED visits and ENT notes, Recommend address impacted cerumen patient to f/u for further removal d/t impacted hard wax will need home drops and rtc 1 week Address hypertension - rx increase lisinopril BPH with obstruction/lower urinary tract symptoms Establish with urology on both flomax, finasteride Other orders - meclizine (ANTIVERT) 25 mg tablet; Take 1 tablet by mouth 3 times daily as needed. - insulin detemir (LEVEMIR FLEXTOUCH) 100 units/mL injection (pen); Inject 45 Units und er the skin nightly. - insulin aspart (NOVOLOG FLEXPEN) 100 units/mL injection pen; Inject 10 Units under th e skin 3 times daily (before meals). Plus 5 units if > 300 - lisinopril (PRINIVIL,ZESTRIL) 40 MG tablet; Take 1 tablet by mouth Daily. I spent over 40 minutes of time > 50% of which were spent face to face with patient nicolas sanchez this visit on counseling and/or coordination of care regarding the problems documented abo ve. documented in this e ncounter Plan of Treatment +--------+---------+ + + + | Date | Type | Specialty | Care Team | Description | +--------+---------+ + + + | 09/10/ | Office | Geriatric Medicine | Mireya Pack, | | 2019 | Visit | | NET MAKING SUPERVISOR [address] | | | | | | [address] [place], | | | | | | [place] [address] | | | | | | [phone] | | | | | | | | +--------+---------+ + + + | 09/29/ | Office | Urology | Mireya Pack, | | | 2020 | Visit | | NET MAKING SUPERVISOR [address] | | | | | | [address] [place], | | | | | | [place] [address] | | | | | | [phone] | | | | | | | | | | | | Toy Wild, DO | | | | | | [address] | | | | | | [place] [address] | | | | | | [phone] | | | | | | | | +--------+---------+ + + + documented as of this encounter Procedures + +--------+ + + + | Procedure Name | Priori | Date/Time | Associated Diagnosis | Comments | | | ty | | | | + +--------+ + + + | POC GLUCOSE | Routin | 03/28/2019 | Uncontrolled type | Results for this | | | e | 5:09 PM | 2 diabetes mellitus | procedure are in the | | | | PST | with hyperglycemia | results section. | | | | | (HCC) | | + +--------+ + + + documented in this encounter Results POC Glucose (03/28/2019 5:09 PM PST) + +---------+ + + + | Component | Value | Ref Range | Performed | Pathologist | | | | | At | Signature | + +---------+ + + + | Glucose, | 253 (A) | 70 - 105 mg/dL | | | | POC | | | | | + +---------+ + + + + + | Specimen | + + | Blood | + + Hemoglobin A1C (03/27/2019 3:46 PM PST) + + + + + + | Component | Value | Ref Range | Performed | Pathologist | | | | | At | Signature | + + + + + + | Hemoglobin | 9.1 (H)Comment: HbA1c | 4.0 - 6.0 % | REFERENCE | | | A1c | method is certified by | | LAB | | | | [facility] and traceable to | | [facility] | | | | the DCCT reference | | LABORATORY | | | | method.ADA guidelines | | | | | | indicate: | | | | | | Prediabetes: 5.7 - 6.4 | | | | | | Diabetes: >6.4 | | | | | | Glycemic control for | | | | | | adults with diabetes: | | | | | | <7.0Effective 02/21/2018: | | | | | | Note New Method | | | | + + + + + + | Estimated | 214 (H)Comment: | <154 mg/dL | REFERENCE | | | Average | Estimated Average | | LAB | | | Glucose | Glucose calculated from | | [facility] | | | | hemoglobin A1c by use of | | LABORATORY | | | | the ADArecommended | | | | | | formula.Testing | | | | | | performed at [facility];[address] | | | | | [facility] | | | | | | [address];[place] [address] | | | | | | | | | | + + + + + + + + | Specimen | + + | Blood | + + + + + + + | Performing | Address | City/State/Zipcode | Phone Number | | Organization | | | | + + + + + | REFERENCE LAB | [address] [place] [address] | [place] | [phone] | | [facility] | Bl[address] | [address] | | | LABORATORY | | | | + + + + + | REFERENCE LAB | [address] [place] [address] | [place] | | | [facility] | [address] | [address] | | | LABORATORY | | | | + + + + + CBC with Differential (03/27/2019 3:46 PM PST) + + + + + + | Component | Value | Ref Range | Performed | Pathologist | | | | | At | Signature | + + + + + + | WBC | 9.86 | 3.80 - 11.00 | REFERENCE | | | | | K/uL | LAB | | | | | | [facility] | | | | | | LABORATORY | | + + + + + + | Red Blood | 5.65 | 4.20 - 5.70 | REFERENCE | | | Cells | | M/uL | LAB | | | | | | [facility] | | | | | | LABORATORY | | + + + + + + | Hemoglobin | 16.0 | 13.2 - 17.0 | REFERENCE | | | | | g/dL | LAB | | | | | | [facility] | | | | | | LABORATORY | | + + + + + + | Hematocrit | 46.5 | 39.0 - 50.0 % | REFERENCE | | | | | | LAB | | | | | | [facility] | | | | | | LABORATORY | | + + + + + + | MCV | 82.4 | 80.0 - 100.0 fl | REFERENCE | | | | | | LAB | | | | | | [facility] | | | | | | LABORATORY | | + + + + + + | MCH | 28.3 | 27.0 - 34.0 pg | REFERENCE | | | | | | LAB | | | | | | [facility] | | | | | | LABORATORY | | + + + + + + | MCHC | 34.3 | 32.0 - 35.5 | REFERENCE | | | | | g/dL | LAB | | | | | | [facility] | | | | | | LABORATORY | | + + + + + + | RDW-SD | 41.6 | 37 - 53 fl | REFERENCE | | | | | | LAB | | | | | | [facility] | | | | | | LABORATORY | | + + + + + + | Platelet | 294 | 150 - 400 K/uL | REFERENCE | | | Count | | | LAB | | | | | | [facility] | | | | | | LABORATORY | | + + + + + + | MPV | 7.6 | fl | REFERENCE | | | | | | LAB | | | | | | [facility] | | | | | | LABORATORY | | + + + + + + | Diff Type | AUTOMATED | | REFERENCE | | | | | | LAB | | | | | | [facility] | | | | | | LABORATORY | | + + + + + + | % | 52.99 | % | REFERENCE | | | Neutrophils | | | LAB | | | | | | [facility] | | | | | | LABORATORY | | + + + + + + | % | 33.51 | % | REFERENCE | | | Lymphocytes | | | LAB | | | | | | [facility] | | | | | | LABORATORY | | + + + + + + | Monocyte % | 8.83 | % | REFERENCE | | | | | | LAB | | | | | | [facility] | | | | | | LABORATORY | | + + + + + + | Eosinophils | 4.00 | % | REFERENCE | | | % | | | LAB | | | | | | [facility] | | | | | | LABORATORY | | + + + + + + | Basophils % | 0.67 | % | REFERENCE | | | | | | LAB | | | | | | [facility] | | | | | | LABORATORY | | + + + + + + | Neutrophils | 5.22 | 1.90 - 7.40 | REFERENCE | | | , Absolute | | K/uL | LAB | | | | | | [facility] | | | | | | LABORATORY | | + + + + + + | Absolute | 3.30 | 1.00 - 3.90 | REFERENCE | | | Lymphocytes | | K/uL | LAB | | | | | | [facility] | | | | | | LABORATORY | | + + + + + + | Absolute | 0.87 (H) | 0.00 - 0.80 | REFERENCE | | | Monocytes | | K/uL | LAB | | | | | | [facility] | | | | | | LABORATORY | | + + + + + + | Eosinophils | 0.39 | 0.00 - 0.50 | REFERENCE | | | , Absolute | | K/uL | LAB | | | | | | [facility] | | | | | | LABORATORY | | + + + + + + | Basophils, | 0.07Comment: Testing | 0.00 - 0.10 | REFERENCE | | | Absolute | performed at [facility];[address] | K/uL | LAB | | | | [facility] | | [facility] | | | | [address];[place] [address] | | LABORATORY | | + + + + + + + + | Specimen | + + | Blood | + + + + + + + | Performing | Address | City/State/Zipcode | Phone Number | | Organization | | | | + + + + + | REFERENCE LAB | [address] [place] [address] | [place], [place] | [phone] | | [facility] | [address] | [address] | | | LABORATORY | | | | + + + + + | REFERENCE LAB | [address] [place] [address] | [place], [place] | | | [facility] | [address] | [address] | | | LABORATORY | | | | + + + + + CK Total (03/27/2019 3:46 PM PST) + + + + + + | Component | Value | Ref Range | Performed | Pathologist | | | | | At | Signature | + + + + + + | CK TOTAL | 65Comment: Testing | 55 - 400 U/L | REFERENCE | | | | performed at [facility];[address] | | LAB | | | | [place] | | [facility] | | | | [address];[place] [address] | | LABORATORY | | + + + + + + + + | Specimen | + + | Blood | + + + + + + + | Performing | Address | City/State/Zipcode | Phone Number | | Organization | | | | + + + + + | REFERENCE LAB | [address] | [place] | [phone] | | [facility] | [address] | [address] | | | LABORATORY | | | | + + + + + | REFERENCE LAB | [address] | [place] | | | [facility] | [address] | [address] | | | LABORATORY | | | | + + + + + TSH, Reflex Free T4 (03/27/2019 3:46 PM PST) + + + + + + | Component | Value | Ref Range | Performed | Pathologist | | | | | At | Signature | + + + + + + | TSH | 2.780Comment: Testing | 0.450 - 5.100 | REFERENCE | | | | performed at [facility];[address] | uIU/mL | LAB | | | | [place] | | [facility] | | | | [address];[place] [address] | | LABORATORY | | + + + + + + + + | Specimen | + + | Blood | + + + + + + + | Performing | Address | City/State/Zipcode | Phone Number | | Organization | | | | + + + + + | REFERENCE LAB | [address] | [place] | [phone] | | [facility] | [address] | [address] | | | LABORATORY | | | | + + + + + | REFERENCE LAB | [address] | [place] | | | [facility] | [address] | [address] | | | LABORATORY | | | | + + + + + Comprehensive Metabolic Panel (03/27/2019 3:46 PM PST) + + + + + + | Component | Value | Ref Range | Performed | Pathologist | | | | | At | Signature | + + + + + + | Na | 138 | 135 - 145 | REFERENCE | | | | | mmol/L | LAB | | | | | | [facility] | | | | | | LABORATORY | | + + + + + + | K | 4.0 | 3.5 - 4.9 | REFERENCE | | | | | mmol/L | LAB | | | | | | [facility] | | | | | | LABORATORY | | + + + + + + | Cl | 97 (L) | 99 - 109 mmol/L | REFERENCE | | | | | | LAB | | | | | | [facility] | | | | | | LABORATORY | | + + + + + + | CO2 | 23 | 23 - 32 mmol/L | REFERENCE | | | | | | LAB | | | | | | [facility] | | | | | | LABORATORY | | + + + + + + | Anion Gap | 22 (H) | 5 - 20 mmol/L | REFERENCE | | | | | | LAB | | | | | | [facility] | | | | | | LABORATORY | | + + + + + + | Glucose | 306 (H) | 65 - 99 mg/dL | REFERENCE | | | | | | LAB | | | | | | [facility] | | | | | | LABORATORY | | + + + + + + | BUN | 19 | 8 - 25 mg/dL | REFERENCE | | | | | | LAB | | | | | | [facility] | | | | | | LABORATORY | | + + + + + + | Creatinine | 1.0 | 0.70 - 1.30 | REFERENCE | | | | | mg/dL | LAB | | | | | | [facility] | | | | | | LABORATORY | | + + + + + + | BUN/Creatin | 19 | | REFERENCE | | | ine Ratio | | | LAB | | | | | | [facility] | | | | | | LABORATORY | | + + + + + + | Calcium | 9.5 | 8.5 - 10.5 | REFERENCE | | | | | mg/dL | LAB | | | | | | [facility] | | | | | | LABORATORY | | + + + + + + | Protein, | 7.3 | 6.3 - 8.2 g/dL | REFERENCE | | | Total | | | LAB | | | | | | [facility] | | | | | | LABORATORY | | + + + + + + | Albumin | 3.3 | 3.3 - 4.8 g/dL | REFERENCE | | | | | | LAB | | | | | | [facility] | | | | | | LABORATORY | | + + + + + + | Globulin | 4.0 | 1.3 - 4.9 g/dL | REFERENCE | | | | | | LAB | | | | | | [facility] | | | | | | LABORATORY | | + + + + + + | A/G Ratio | 0.8 (L) | 1.0 - 2.4 | REFERENCE | | | | | | LAB | | | | | | [facility] | | | | | | LABORATORY | | + + + + + + | BILIRUBIN, | 0.4 | 0.1 - 1.5 mg/dL | REFERENCE | | | TOTAL | | | LAB | | | | | | [facility] | | | | | | LABORATORY | | + + + + + + | ALK PHOS | 161 (H) | 35 - 115 U/L | REFERENCE | | | | | | LAB | | | | | | [facility] | | | | | | LABORATORY | | + + + + + + | AST | 15 | 10 - 45 U/L | REFERENCE | | | | | | LAB | | | | | | [facility] | | | | | | LABORATORY | | + + + + + + | ALT | 26 | 10 - 65 U/L | REFERENCE | | | | | | LAB | | | | | | [facility] | | | | | | LABORATORY | | + + + + + + | Estimated | >60Comment: GFR <60: | >60 | REFERENCE | | | GFR | CHRONIC KIDNEY DISEASE, | mL/min/1.73m2 | LAB | | | | IF FOUND OVER A 3 MONTH | | [facility] | | | | PERIOD.GFR <15: KIDNEY | | LABORATORY | | | | FAILURE.FOR | | [...] | | | | | performed at [facility];[address] | | | | | | [facility] | | | | | | [facility];[place] [address] | | | | | | | | | | + + + + + + + + | Specimen | + + | Blood | + + + + + + + | Performing | Address | City/State/Zipcode | Phone Number | | Organization | | | | + + + + + | REFERENCE LAB | [facility] | [place] | [phone] | | [facility] | [address] | [address] | | | LABORATORY | | | | + + + + + | REFERENCE LAB | [address] [place] [address] [place] | [place] | | | [facility] | [address] | [address] | | | LABORATORY | | | | + + + + + documented in this encounter Visit Diagnoses + + | Diagnosis | + + | Uncontrolled type 2 diabetes mellitus with hyperglycemia (HCC) - Primary | + + | Vertigo Dizziness and giddiness | + + | Impacted cerumen, left ear | + + | BPH with obstruction/lower urinary tract symptoms Hypertrophy of prostate with | | urinary obstruction and other lower urinary tract symptoms (LUTS) | + + documented in this encounter"
--- OUTSIDE RECORDS SUMMARY | ~2019-09-09 | XMS | Encounter Summary ---
Demographics + + + | Address | [address] | | | [place] [address] | + + + | Home Phone [...] + | Sammi Kohler | ECON | [place] [address] | | + + + + + Care Team Providers + +------+ + | Care Instructional Media Services Technician Name | Role | Phone | + +------+ + PCP | Unavailable | + +------+ + Encounter Details +--------+ + + + + | Date | Type | Department | Care Team | Description | +--------+ + + + + | 05/05/ | Emergency | [facility] | Gurvinder Cruz, | Anxiety reaction; | | 2011 | | [facility] | [address] | Non-cardiac chest | | | | EMERGENCY CENTER | [place], [place] | pain | | | | [address] | [address] | | | | | [place], [place] | [phone] | | | | | [address] | | | | | | [phone] | | | +--------+ + + + [...] ED Notes Conversion Transaction, Provider Unknown - 05/06/2011 4:01 AM PDTFormatting of this note m ight be different from the original. ED Notes by Suresh Marin RN at 05/06/11400 Author: Suresh Marin RN Service: (none) Author Type: Registered Nurse Filed: 05/06/11401 Date of Service: 05/06/11400 Status: Signed Senior Drupal Developer: Suresh Marin RN (Registered Nurse) Pt awake alert to lobby via w/c . Pt waiting for cab ride home. Suresh Marin RN 05/06/11401 onver ivana Transaction, Provider Unknown - 05/06/2011 1:49 AM PDT ED Notes by Suresh Marin RN at 05/06/11148 Author: Suresh Marin RN Service: (none) Author Type: Registered Nurse Filed: 05/06/11148 Date of Service: 05/06/11148 Status: Signed Senior Drupal Developer: Suresh Marin RN (Registered Nurse) MD at bedside. Suresh Marin RN 05/06/11148 onver ivana Transaction, Provider Unknown - 05/06/2011 1:48 AM PDT ED Notes by Suresh Marin RN at 05/06/11147 Author: Suresh Marin RN Service: (none) Author Type: Registered Nurse Filed: 05/06/11148 Date of Service: 05/06/11147 Status: Signed Senior Drupal Developer: Suresh Marin RN (Registered Nurse) Pt arrives awake alert with no complaints at this time. Skin w/d pink, Pt placed on 02 at 2 l nc/ Monitor shows sr no ectopy Suresh Marin RN 05/06/11148 ranth am, Gurvinder Anthony MD - 05/06/2011 1:40 AM PDT ED Provider Notes by Gurvinder Cruz MD at 05/06/11139 Author: Gurvinder Cruz MD Service: (none) Author Type: Physician Filed: 05/06/11 0545 Date of Service: 05/06/11139 Status: Signed Senior Drupal Developer: Gurvinder Cruz MD (Physician) [facility] Department of Emergency Medicine History of Present Illness Patient Identification Kevyn Guzman is a 55 y.o. male. Patient information was obtained from patient. History/Exam limitations: none. Patient presented to the Emergency Department by: Ambulance Chief Complaint Chief Complaint Patient presents with Chest Pain 1:41 AM The patient complains of chest pain. Pain is located to L side of chest with no radiation. Pt also c/o neck pain (chronic and unchanged) and Onset of symptoms was about 10:3011:00 PM last night, and was sudden while pt was asleep. Pt reports the pain woke him up. The patie nt also complains of the following symptoms: muscle aches, abdominal pain and dysuria.. Pat ient's cardiac risk factors include: obese, h/o stroke, HTN., diabetes. Pt has had similar s ymptoms in the past and was admitted on 03-30-11. 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 ETT was normal in 2011 Pt states he is new on town and moved here from [place] and has not established a PCP ye t. "light" stroke a couple years ago Stress test 2 months ago and was negative as reported by pt. Past Medical History Diagnosis Date Diabetes mellitus type II Atrial fibrillation Diabetes mellitus type I Stroke Past Surgical History Procedure Date Unlisted procedure arthroscopy Prior to Admission medications Medication Sig Start Date End Date Taking? Authorizing Provider aspirin 81 MG EC tablet Take 1 tablet by mouth daily. 03/30/11 03/29/12 Nemesio Morley MD ATENOLOL PO Take 100 mg by mouth. Historical Provider, diltiazem (DILACOR XR) 120 MG 24 hr capsule Take 120 mg by mouth daily. Historical Pro viderMD fenofibrate (TRIGLIDE) 160 MG tablet Take 160 mg by mouth daily. Historical Provider, glipiZIDE (GLUCOTROL) 5 MG tablet Take 5 mg by mouth 2 (two) times daily before meals. Historical Provider, METFORMIN HCL PO Take 1,000 mg by mouth 2 (two) times daily. Historical Provider, paroxetine (PAXIL) 40 MG tablet Take 40 mg by mouth every morning. Historical Provider , TAMSULOSIN HCL PO Take 0.4 mg by mouth. Historical Provider, triamterene-hydrochlorothiazide (MAXZIDE) 75-50 MG per tablet Take 1 tablet by mouth daily. Historical Provider, ziprasidone (GEODON) 40 MG capsule Take 40 mg by mouth 2 (two) times daily with meals. Historical Provider, No Known Allergies History Social History Marital Status: Single [...] family history. Review of Systems Constitutional: Negative for fever. HENT: Positive for sore throat and neck pain. Negative for congestion. Respiratory: Negative for cough and shortness of breath. Cardiovascular: Positive for chest pain. Gastrointestinal: Negative for nausea, vomiting and abdominal pain. Genitourinary: Negative. Musculoskeletal: Negative for back pain. Skin: Negative for rash. Neurological: Negative for headaches. All other systems reviewed and are negative. Physical Exam BP 160/90 | Pulse 96 | Temp(Src) 98.6 F (37 C) (Rectal) | Resp 20 | Ht 1.803 m (5' 11") | Wt 107.956 kg (238 lb) | BMI 33.19 kg/m2 | SpO2 97% Vitals interpreted: Hypertensive Pulse Oximetry interpretation: Normal General: Alert, no active distress Eyes: Normal inspection, pupils equal and round, non-icteric ENT: Ears normal Nose normal Pharynx normal Neck: Normal inspection Supple No lymphadenopathy Cardiovascular: Normal rated and rhythm Respiratory: Lungs CTA Abdomen: Soft, non-tender, non-distended No guarding or rebound Back: Normal inspection Skin: Color normal Warm and dry No rash Neuro: EVON Medical Decision Making and Emergency Department Course ED Department Course 1:48 AM The patient presents with a chief [...] troponin. Patient will be placed on the campus monitor to ensure no life thre atening arrhythmia develops and will be given supplemental oxygen via nasal cannula. I will give Ativan 1 mg PO and [place] 5-325 mg PO Troponin 0.00 3:39 AM Pt has unremarkable labs and is chest pain free. Normal stress test done in the past 3 week s and has had normal ones in the past. Pt has some stressors in his life now. I do not feel this is cardiac la No reason to admit pt at this time. I have discussed my clinical impression and [...] further emergency department treatment at this time. He feels better after pain meds and relaxants. Ex sister in law sent him ashes of his wedding pictures. This may have caused some undue st ress. This is not cardiac pain. Records Reviewed Old medical records. Records unavailable Laboratory Evaluation Results Procedure Component Value Ref Range Flag Date/Time Cardiac Panel [[id number]] Abnormal Collection: 05/06/11219 Order Status: Completed Resulted: 05/06/11308 WBC 8.1 4.0 - 11.0 K/uL RBC 4.45 4.30 - 5.70 M/uL HGB 13.0 13.7 - 16.7 g/dL L HCT 39.0 40.0 - 50.0 % L MCV 87.7 80.0 - 100.0 fl MCH 29.2 27.0 - 34.0 pg MCHC 33.3 32.0 - 35.5 g/dL RDW SD 42.4 37 - 53 fl PLT 257 150 - 400 K/uL MPV 7.2 fl DIFF TYPE AUTOMATED NEUTROPHILS 48.7 40 - 80 % LYMPHOCYTES 36.0 15 - 45 % MONOCYTES 10.3 0 - 12 % EOSINOPHILS 4.7 0 - 7 % BASOPHILS 0.3 0 - 2 % NEUTROPHILS ABS 4.0 2.0 - 7.3 K/uL LYMPHOCYTES ABS 2.9 1.0 - 3.4 K/uL MONOCYTES ABS 0.8 0 - 0.8 K/uL EOSINOPHILS ABS 0.4 0 - 0.5 K/uL BASOPHILS ABS 0.0 0 - 0.1 K/uL SODIUM 145 135 - 145 mmol/L POTASSIUM 3.5 3.5 - 5.0 mmol/L CHLORIDE 107 98 - 109 mmol/L CO2 27 23 - 32 mmol/L ANION GAP AGAP 14 5 - 20 mmol/L GLUCOSE 135 65 - 99 mg/dL H BUN 15 7 - 23 mg/dL CREATININE 1.3 0.7 - 1.5 mg/dL BUN/CREAT 12 CALCIUM 8.7 8.5 - 10.5 mg/dL TOTAL PROTEIN 6.6 6.4 - 8.3 g/dL Albumin 3.1 3.5 - 5.0 g/dL L GLOBULIN 3.5 1.3 - 4.9 g/dL A/G 0.9 1.0 - 2.4 L TBIL 0.3 0.1 - 1.5 mg/dL ALK PHOS 59 38 - 110 U/L AST 16 5 - 40 U/L ALT 24 5 - 50 U/L EGFR >60 >60 mL/min/1.73m2 CPK 96 25 - 287 U/L INR 1.0 0.9 - 3.5 APTT 26 25 - 37 seconds MMB 0.7 0.5 - 3.6 ng/mL CK-MB Index 0.7 POC cardiac troponin [[id number]] Collection: 05/06/11233 Order Status: Completed Resulted: 05/06/11246 POC CARDIAC TROPONIN 0.00 0.00 - 0.10 ng/mL Radiology and EKG Evaluation Imaging Results XR Chest PA and Lateral (Preliminary result) Result time:05/06/11309 ED Interpretation Documented by Gurvinder Cruz MD (05/06/11309, [facility] Emergency Department, Emergency Medicine) Normal chest xray No pneumo No cardiomegaly No infiltrate. EKG Interpretation TIME: 138 Rhythm: Sinus Ventricular Rate: 63 bpm [place] Interval: Normal ST Segments: Normal Significant Q-waves: None Blocks: None [place]: Normal ED Diagnoses Final diagnoses Anxiety reaction Non-cardiac chest pain Disposition: Admit ED Disposition Discharge Condition at discharge: Stable Follow-up Information Follow up With Details Comments Contact Info Sanjuanita Gonzales MD [address], [address] [facility] [address] [facility] If symptoms worsen or any new concerns [address] [facility] [address] Per Pt None, [facility] Discharge Medications: New Prescriptions LORAZEPAM (ATIVAN) 1 MG TABLET Take 1 tablet by mouth 3 (three) times daily as needed f or Anxiety. Sig take 1 tablet by mouth when your are anxious or upset. You can use up to 2 a day. Additional Documentation Procedures Attending Note: Documentation assistance provided by ELIAS COREAS (Scribe). Information recorded by the scribe has been reviewed and validated by me. I aruna laughlin with its contents. MD Gurvinder Rodriguez MD 05/06/1145 onversio n Transaction, Provider Unknown - 05/06/2011 1:39 AM PDTFormatting of this note might be di fferent from the original. ED Notes by Hortensia Cardoso RN at 05/06/11138 Author: Hortensia Cardoso RN Service: (none) Author Type: Registered Nurse Filed: 05/06/11138 Date of Service: 05/06/11138 Status: Signed Senior Drupal Developer: Hortensia Cardoso RN (Registered Nurse) Bed:17
Expected date:
Expected time:
Means of arrival:
Comments:
ems 4 21 onver ivana Transaction, Provider Unknown - 05/06/2011 1:39 AM PDT ED Notes by Suresh Marin RN at 05/06/11138 Author: Suresh Marin RN Service: (none) Author Type: Registered Nurse Filed: 05/06/11139 Date of Service: 05/06/11138 Status: Signed Senior Drupal Developer: Suresh Marin RN (Registered Nurse) Pt here with report of two complaints, Pt apparently had episode of cp and also feels His bp is elavated Suresh Marin RN 05/06/11139 docume nted in this encounter Plan of Treatment +--------+---------+ + + + | Date | Type | Specialty | Care Team | Description | +--------+---------+ + + + | 09/10/ | Office | Geriatric Medicine | Mireya Pack, | | | 2019 | Visit | | [facility] [address] | | | | | | [address] [place], | | | | | | [place] [address] | | | | | | [phone] | | | | | | | | +--------+---------+ + + + | 09/29/ | Office | Urology | Mireya Pack, | | | 2020 | Visit | | [facility] [address] | | | | | | [address] [place], | | | | | | [place] [address] | | | | | | [phone] | | | | | | | | | | | | Toy Wild W, DO | | | | | | [address] | | | | | | [place] [address] | | | | | | [phone] | | | | | | | | +--------+---------+ + + + documented as of this encounter Procedures + +--------+ + + + | Procedure Name | Priori | Date/Time | Associated Diagnosis | Comments | | | ty | | | | + +--------+ + + + | XR CHEST 2 VIEWS | Routin | 05/06/2011 | | Results for this | | | e | 2:55 AM | | procedure are in the | | | | PDT | | results section. | + +--------+ + + + documented in this encounter Results XR Chest 2 Vws (05/06/2011 2:55 AM PDT) + + | Specimen | + + | | + + + + + | Narrative | Performed At | + + + | HISTORY: Chest pain. COMPARISON: 03/30/11. TECHNIQUE: | | | Frontal and lateral films of the chest were obtained. FINDINGS: | | | Frontal and lateral films the chest were obtained. The lungs and | | | pleural spaces are clear. Heart size is normal. Mild degenerative | | | changes thoracic spine. IMPRESSION: 1. No active disease. | | | | | + + + + + | Procedure Note | + + | Richard, Rad Conversion - 09/29/2018 12:47 AM PDT HISTORY:Chest pain. | | COMPARISON:03/30/11. TECHNIQUE:Frontal and lateral films of the chest were obtained. | | FINDINGS:Frontal and lateral films the chest were obtained. The lungs and pleural | | spaces are clear. Heart size is normal. Mild degenerative changes thoracic spine. | | IMPRESSION:1. No active disease. Electronically signed by Bhavin Guzman MD on | | 05/06/2011 8:35 AM | |TECHNIQUE: | |Frontal and lateral films of the chest were obtained. | | | |FINDINGS: | |Frontal and lateral films the chest were obtained. The lungs and pleural spaces are clear. Heart size is normal. Mild degenerative changes thoracic spine. | | | |IMPRESSION: | |1. No active disease. | | | | | + + documented in this encounter Visit Diagnoses + + | Diagnosis | + + | Anxiety reaction Anxiety state, unspecified | + + | Non-cardiac chest pain Other chest pain | + + documented in this encounter
--- OUTSIDE RECORDS SUMMARY | ~2019-09-09 | XMS | Encounter Summary ---
Demographics + + + | Address | [address] | | | [place] [address] | + + + | Home Phone [...] + | Sammi Kohler | ECON | [place] [address] | | + + + + + Care Team Providers + +------+ + | Care Granular Operator Name | Role | Phone | + +------+ + PCP | Unavailable | + +------+ + Encounter Details +--------+ + + + + | Date | Type | Department | Care Team | Description | +--------+ + + + + | 02/04/ | Emergency | [facility] | | Chest pain | | 2013 | | [facility]ICAL [facility]ENTER | | | | | | EMERGENCY CENTER | | | | | | [address] | | | | | | [place], [place] | | | | | | [address] | | | | | | [phone] | | | +--------+ + + + [...] ED Notes Conversion Transaction, Provider Unknown - 02/04/2014 9:12 PM PSTFormatting of this note m ight be different from the original. ED Notes by Vadim Bernal RN at 02/04/142111 Author: Vadim Bernal RN Service: (none) Author Type: Registered Nurse Filed: 02/04/142111 Date of Service: 02/04/142111 Status: Signed Exercise Instruct: Vadim Bernal RN (Registered Nurse) Dr Nugent at bedside. Vadim Bernal RN 02/04/142111 onver ivana Transaction, Provider Unknown - 02/04/2014 7:03 PM PST ED Notes by Vadim Bernal RN at 02/04/141902 Author: Vadim Bernal RN Service: (none) Author Type: Registered Nurse Filed: 02/04/141902 Date of Service: 02/04/141902 Status: Signed Exercise Instruct: Vadim Bernal RN (Registered Nurse) Bedside report received and care assumed at this time. Bed rails up x1, call light within r each. Patient updated to change in primary RN, plan of care. Vadim Bernal RN 02/04/141902 onver ivana Transaction, Provider Unknown - 02/04/2014 6:26 PM PST ED Notes by Omaira Leslie RN at 02/04/141825 Author: Omaira Leslie RN Service: Emergency Department Author Type: Registered Nurse Filed: 02/04/141826 Date of Service: 02/04/141825 Status: Signed Exercise Instruct: Omaira Leslie RN (Registered Nurse) "I passed out at 7:30 this morning laying down watching TV, at 10:00 this morning walking t o the bathroom, and the third time walking in my living room." Patient denies hitting head o n any occasion, but c/o headache. Omaira Leslie RN 02/04/141826 rabtr Marcos eastman MD - 02/04/2014 6:25 PM PST ED Provider Notes by Marcos Nugent MD at 02/04/141824 Author: Marcos Nugent MD Service: (none) Author Type: Physician Filed: 02/04/142114 Date of Service: 02/04/141824 Status: Signed Exercise Instruct: Marcos Nugent MD (Physician) [facility] Department of Emergency Medicine History of Present Illness Patient Identification Norah Gr is a 58 y.o. male. Patient information was obtained from patient. History/Exam limitations: none. Patient presented to the Emergency Department by: Car Chief Complaint Chief Complaint Patient presents with Chest Pain Loss of Consciousness Recheck (Comments) seen multiple times recently for same complaints 6:54 PM The patient presents to ED with complaints of chest pain Location: pain is in the epigastric area Quality: The patient reports that his pain is "uncomfortable". Severity:Moderate Contet:The patient reports that he got chest pain this morning while laying down. The patie nt reports that he was on the couch when the pain occurred. The patient states that he exper ienced LOC for about "20 minutes" but no one was there to witness it. Timing:This morning Duration:Ongoing Modifying factors: The patient reports that he has Type II Diabetes. The patient also complains of nausea, vomiting (x1), LOC (no witnesses) Patient denies diaphoresis, diarrhea, or fever. PCP: JERRELL GUTIÉRREZ Past Medical History Diagnosis [...] - CHOLECYSTECTOMY; Surgeon: Jevon Vargas DO; Location: [facility]; Service: General; Laterality: N/A; Abdominal surgery Cholecystectomy Skin cancer excision 10/10/2012 Procedure: EXCISION - SKIN CANCER; Surgeon: Sy Fierro MD; Location: [facility] ; Service: Plastics; Laterality: Left; upper arm and upper back w/frozen section Esophagogastroduodenoscopy 03/03/2013 Procedure: ESOPHAGOGASTRODUODENOSCOPY; Surgeon: Howie Gibson MD; Location: [facility]; S ervice: Gastroenterology; Laterality: N/A; Colonoscopy 03/04/2013 Procedure: COLONOSCOPY; Surgeon: Howie Gibson MD; Location: [facility]; Service: Gastroe nterology; Laterality: N/A; Upper gastrointestinal endoscopy Skin biopsy Hernia repair 07/03/2013 Procedure: LAPAROSCOPIC - HERNIA - INCISIONAL; Surgeon: Jevon Vargas DO; Location: [facility]; Service: General; Laterality: N/A; Prior to Admission medications Medication Sig Start Date End Date Taking? Authorizing Provider Albuterol Sulfate (VENTOLIN HFA IN) Inhale 2 puffs into the lungs as needed. 108 mcg/act Historical Provider Rqbrx-X-Ezkjxcdcqljyg (BEANO) TABS Take 150 Units by mouth [...] with breakfast. 05/27/13 05/27/14 Augustine Agosto MD benzonatate (TESSALON) 100 MG capsule Take 1 capsule by mouth every 8 (eight) hours. 02/11/14 Norah Barker MD calcium carbonate (TUMS) 500 MG chewable [...] 180 mg at hs 11/30/13 11/30/14 [facility] carlyn Mae MD docusate sodium (COLACE) [...] 100 mg by mouth nightly. Historical Provider unrwcxoxv-fppomynt-vqnyctyre hydroxide-simethicone Take 40 mLs by mouth daily [...] of Children: 1 Years of Education: s. [employer] Occupational History disabled Social History Main Topics [...] of Systems Constitutional: Negative for fever and diaphoresis. Cardiovascular: Positive for chest pain. Gastrointestinal: Positive for nausea and vomiting. Negative for diarrhea. Neurological: Positive for loss of consciousness. All other systems reviewed and are negative. Physical Exam BP 142/67 | Pulse 79 | Resp 16 | SpO2 97% Vital sign interpretation: HTN Pulse Oximetry interpretation: Normal General: Alert, no active distress Eyes: Normal inspection, EOMI, Head: NCAT ENT: Ears normal Nose normal Neck: Normal inspection, Supple, FROM without pain, Cardiovascular: No peripheral edema, Extremity perfusion appears normal Respiratory: Effort normal, No respiratory distress, Lungs are clear Abdomen: Nondistended, Soft, nontender, No pulsatile abd masses, No guarding or rebound Back: Normal inspection, normal movement. Skin: No rash Extremities: No deformities, no tenderness Neuro: Alert, oriented, cranial nerves grossly intact. No gross motor deficits, Psych: Flat affect Lymph: No visible adenopathy Medical Decision Making and Emergency Department Course ED Department Course My DDx includes, but is not limited to: see below. The following medications were given during the course of treatment in the Emergency Depart ment: sodium chloride 0.9 % 10 mL Intravenous Q8H Medications sodium chloride 0.9 % flush 10 mL (not administered) MDM: Pleasant 58 y.o. male Differential: Chest pain, near-syncope, syncope Patient presents here to emergency department indicates he has been feeling a little bit un well over last couple days, he was sitting on the couch at home states that he passed out, h e has had a little bit of epigastric pain earlier in the day, does not radiate to his jaw or shoulder, was not diaphoretic, did not have vomiting, no pleuritic pain. EKG was done at 6:18 PM, rate 93, sinus rhythm with occasional PVC, nonspecific ST abnormal ities, PVC, EKG interpreted by myself at the time of clinical encounter Laboratory interpretation reveals normal cardiac panel. Renal insufficiency is chronic. Pt's symptoms have been ongoing for greater than 10 hours, if the symptoms were due to card iac ischemia, I would expect there to be elevation in pt's cardiac markers. There is no crista vation of the cardiac markers and therefore the likelihood of this patient's symptoms being due to an acute cardiac event is very low. We will repeat troponin to increase sensitivity. I reviewed the patient's medical history, he did have an angiogram done 3 months ago which did not show any underlying coronary artery disease, 6:58 PM Troponin: 0.01. 8:45 PM Troponin: 0.01 Reviewed labs and imaging. CXR impression per me: mild cardiomegaly, no infiltrate, no pleu ral effusions. 9:12 PM Patient reevaluation. Patient is stable and feeling better at this time. I discusse d all ED results and my clinical impression with the patient. Patient is ready for discharge . I advised patient as to the time frame for follow up, and we discussed the emergent signs and symptoms that would necessitate a return to ED. All questions and concerns addressed. Records Reviewed Old medical records. Nursing notes. (Using the electronic record system of [facility]) Previous ED visits for similar and unrelated complaints. Laboratory Evaluation Results Procedure Component Value Ref Range Date/Time POC cardiac troponin [[id number]] Collected: 02/04/142030 Order Status: Completed Updated: 02/04/142044 POC CARDIAC TROPONIN 0.01 0.00 - 0.10 ng/mL Cardiac Panel [[id number]] (Abnormal) Collected: 02/04/14 1823 Order Status: Completed Updated: 02/04/141856 WBC 9.9 3.8 - 11.0 K/uL RBC 4.85 4.20 - 5.70 M/uL HGB 12.6 (L) 13.2 - 17.0 g/dL HCT 38.7 (L) 39.0 - 50.0 % MCV 79.8 (L) 80.0 - 100.0 fl MCH 26.1 (L) 27.0 - 34.0 pg MCHC 32.6 32.0 - 35.5 g/dL RDW SD 42.4 37 - 53 fl PLT 278 150 - 400 K/uL MPV 7.8 fl DIFF TYPE AUTOMATED NEUTROPHILS 66.4 % LYMPHOCYTES 20.5 % MONOCYTES 10.3 % EOSINOPHILS 1.8 % BASOPHILS 1.0 % NEUTROPHILS ABS 6.6 1.9 - 7.4 K/uL LYMPHOCYTES ABS 2.0 1.0 - 3.9 K/uL MONOCYTES ABS 1.0 (H) 0 - 0.8 K/uL EOSINOPHILS ABS 0.2 0 - 0.5 K/uL BASOPHILS ABS 0.1 0 - 0.1 K/uL SODIUM 138 135 - 143 mmol/L POTASSIUM 3.9 3.5 - 4.9 mmol/L CHLORIDE 104 99 - 109 mmol/L CO2 29 23 - 32 mmol/L ANION GAP AGAP 10 5 - 20 mmol/L GLUCOSE 189 (H) 65 - 99 mg/dL BUN 16 8 - 25 mg/dL CREATININE 1.33 (H) 0.70 - 1.30 mg/dL BUN/CREAT 12 CALCIUM 9.0 8.5 - 10.2 mg/dL TOTAL PROTEIN 7.5 6.3 - 8.2 g/dL Albumin 3.5 (L) 3.6 - 5.0 g/dL GLOBULIN 4.1 1.3 - 4.9 g/dL A/G 0.9 (L) 1.0 - 2.4 TBIL 0.3 0.1 - 1.5 mg/dL ALK PHOS 89 35 - 115 U/L AST 18 10 - 45 U/L ALT 23 10 - 65 U/L EGFR 59 (L) >60 mL/min/1.73m2 CPK 116 55 - 400 U/L INR 1.0 APTT 24 23 - 32 seconds MMB 3.8 (H) 0.5 - 3.6 ng/mL CK-MB Index 3.3 POC cardiac troponin [[id number]] Collected: 02/04/141825 Order Status: Completed Updated: 02/04/14 1852 POC CARDIAC TROPONIN 0.01 0.00 - 0.10 ng/mL I personally reviewed the lab results and they have been posted to the chart at the time of the patients disposition. Radiology and EKG Evaluation Imaging Results XR chest PA and lateral (Final result) Result time: 02/04/14 21:06:00 Final result by Rad Results In Richard (02/04/14 21:06:00) Impression: 1. No radiographic evidence of acute pulmonary disease to account for patient's symptomat ology. Correlate clinically. Narrative: [facility] XR CHEST 2 VIEW FRONTAL AND LATERAL 02/04/2014 8:12 PM HISTORY: 58 years. Male. Chest pain TECHNIQUE: XR CHEST 2 VIEW FRONTAL AND LATERAL. Dual-energy. Total of 4 images obtained. COMPARISON: 02/03/2014 FINDINGS: The heart is normal in size. The pulmonary vascular pattern is normal. Lungs are well aer ated. No acute airspace disease, parenchymal nodule, mass, pleural effusion or pneumothorax is noted. The osseous structures are normal. ED Interpretation Documented by Marcos Nugent MD (02/04/14 20:32:11, [facility] Emergency Department, Emergency Medicine) Mild cardiomegaly, no infiltrate, no pleural effusions ED Diagnosis Final diagnosis Chest pain Unknown cause Disposition: ED Disposition Discharge Condition at discharge: Stable Follow-up Information Follow up With Details Comments Contact Info Jerrell Gutiérrez DO Schedule an appointment as soon as possible for a visit in 2 days [address] [facility] [address] [facility] Emergency Department If symptoms worsen [address] [facility] [address] Discharge Medications: New Prescriptions No new medications This document has been prepared with a voice recognition system. The possibility of "sound alike" vp informatics errors, and additions or deletions may occur. If there is any questio n, with respect to clarity of the message being conveyed, please contact me directly for cla rification. Marcos Nugent MD, MPH Procedures Additional Documentation Procedures Attending Note: Documentation assistance provided by DEREK WU (Scribe). Information recorded by the scribe has been reviewed and validated by me. Troy laughlin with its contents. MD Marcos Rebolledo MD 02/04/142114 documented in this encounter Plan of Treatment +--------+---------+ + + + | Date | Type | Specialty | Care Team | Description | +--------+---------+ + + + | 09/10/ | Office | Geriatric Medicine | Mireya Pack, | | | 2019 | Visit | | [facility] [address] | | | | | | [address] [place], | | | | | | [place] [address] | | | | | | [phone] | | | | | | | | +--------+---------+ + + + | 09/29/ | Office | Urology | Mireya Pack, | | | 2019 | Visit | | [facility] [address] | | | | | | [address] [place], | | | | | | [place] [address] | | | | | | [phone] | | | | | | | | | | | | Toy Wild, DO | | | | | | [address] | | | | | | [place] [address] | | | | | | [phone] | | | | | | | | +--------+---------+ + + + documented as of this encounter Procedures + +--------+ + + + | Procedure Name | Priori | Date/Time | Associated Diagnosis | Comments | | | ty | | | | + +--------+ + + + | XR CHEST 2 VIEWS | Routin | 02/04/2014 | | Results for this | | | e | 8:12 PM | | procedure are in the | | | | PST | | results section. | + +--------+ + + + | HISTORICAL LAB PANEL | Routin | 02/04/2014 | | Results for this | | RESULT | e | 6:23 PM | | procedure are in the | | | | PST | | results section. | + +--------+ + + + | ECG 12 LEAD | Routin | 02/04/2014 | | Results for this | | | e | 6:17 PM | | procedure are in the | | | | PST | | results section. | + +--------+ + + + documented in this encounter Results XR Chest 2 Vws (02/04/2014 8:12 PM PST) + + | Specimen | + + | | + + + + + | Impressions | Performed At | + + + | 1. No radiographic evidence of acute pulmonary disease to account | | | for patient's symptomatology. Correlate clinically. | | | | | + + + + + + | Narrative | Performed At | + + + | [facility] XR CHEST 2 VIEW FRONTAL AND LATERAL 02/04/2014 8:12 | | | PM HISTORY: 58 years. Male. Chest pain TECHNIQUE: XR | | | CHEST 2 VIEW FRONTAL AND LATERAL. Dual-energy. Total of 4 images | | | obtained. COMPARISON: 02/03/2014 FINDINGS: The heart is | | | normal in size. The pulmonary vascular pattern [...] - 09/21/2018 3:31 PM PDT [facility] GRXR CHEST 2 VIEW FRONTAL | | AND YXHAELF7502/04/2014 8:12 PM HISTORY:58 years. Male. Chest pain TECHNIQUE:XR CHEST 2 | | VIEW FRONTAL AND LATERAL. Dual-energy. Total of 4 images obtained. | | COMPARISON:02/03/2014 FINDINGS:The heart is normal in size. The pulmonary vascular | | pattern is normal. Lungs are well aerated. No acute airspace disease, parenchymal | | nodule, mass, pleural effusion or pneumothorax is noted. The osseous structures are | | normal. IMPRESSION: 1. No radiographic evidence of acute pulmonary disease to account | | for patient's symptomatology. Correlate clinically. | | | |COMPARISON: | |02/03/2014 | | | |FINDINGS: | |The heart is normal in size. The pulmonary vascular pattern is normal. Lungs are well aer ated. No acute airspace disease, parenchymal nodule, mass, pleural effusion or pneumothorax is noted. The osseous structures are normal. | | | |IMPRESSION: | |1. No radiographic evidence of acute pulmonary disease to account for patient's symptomato logy. Correlate clinically. | | | | | | | | | + + HISTORICAL LAB PANEL RESULT (02/04/2014 6:23 PM PST) + + + + + -+ | Component | Value | Ref Range | Performed | Pathologist | | | | | At | Signature | + + + + + -+ | WBC | 9.9Comment: Testing | 3.8 - 11.0 K/uL | EXTERNAL | | | | performed at [facility];[address] | | LAB | | | | [address];[place] | | | | | | [address] | | | | + + + + + -+ | Non- | 4.85Comment: Testing | 4.20 - 5.70 | EXTERNAL | | | Red Blood | performed at [facility];[address] | M/uL | LAB | | | Cells | [address];[place] | | | | | Counted | [address] | | | | + + + + + -+ | Hemoglobin | 12.6 (L)Comment: Testing | 13.2 - 17.0 | EXTERNAL | | | | performed at [facility];[address] | g/dL | LAB | | | | [address];[place] | | | | | | [address] | | | | + + + + + -+ | Hematocrit, | 38.7 (L)Comment: Testing | 39.0 - 50.0 % | EXTERNAL | | | POC | performed at [facility];[address] | | LAB | | | | [address];[place] | | | | | | [address] | | | | + + + + + -+ | MCV | 79.8 (L)Comment: Testing | 80.0 - 100.0 fl | EXTERNAL | | | | performed at [facility];[address] | | LAB | | | | [address];[place] | | | | | | [address] | | | | + + + + + -+ | MCH | 26.1 (L)Comment: Testing | 27.0 - 34.0 pg | EXTERNAL | | | | performed at [facility];[address] | | LAB | | | | [address];[place] | | | | | | [address] | | | | + + + + + -+ | MCHC | 32.6Comment: Testing | 32.0 - 35.5 | EXTERNAL | | | | performed at [facility];[address] | g/dL | LAB | | | | [address] | | | | | | [address] | | | | + + + + + -+ | RDW-CV | 42.4Comment: Testing | 37 - 53 fl | EXTERNAL | | | | performed at [facility];[address] | | LAB | | | | [address];[place] | | | | | | [address] | | | | + + + + + -+ | Platelet | 278Comment: Testing | 150 - 400 K/uL | EXTERNAL | | | Count | performed at [facility];[address] | | LAB | | | Plasma | [address];[place] | | | | | | [address] | | | | + + + + + -+ | MPV | 7.8Comment: Testing | fl | EXTERNAL | | | | performed at [facility];[address] | | LAB | | | | [address];[place] | | | | | | [address] | | | | + + + + + -+ | Differentia | AUTOMATEDComment: | | EXTERNAL | | | l Type | Testing performed at | | LAB | | | | [facility];[address];[place] [address] | | | | + + + + + -+ | % Segmented | 66.4Comment: Testing | % | EXTERNAL | | | | performed at [facility];[address] | | LAB | | | Neutrophils | [address];[place] | | | | | | [address] | | | | + + + + + -+ | % | 20.5Comment: Testing | % | EXTERNAL | | | Lymphocytes | performed at [facility];[address] | | LAB | | | | [address];[place] | | | | | | [address] | | | | + + + + + -+ | % Monocytes | 10.3Comment: Testing | % | EXTERNAL | | | | performed at [facility];[address] | | LAB | | | | [address];[place] | | | | | | [address] | | | | + + + + + -+ | % | 1.8Comment: Testing | % | EXTERNAL | | | Eosinophils | performed at [facility];[address] | | LAB | | | | [address];[place] | | | | | | [address] | | | | + + + + + -+ | % Basophils | 1.0Comment: Testing | % | EXTERNAL | | | | performed at [facility];[address] | | LAB | | | | [address];[place] | | | | | | [address] | | | | + + + + + -+ | Absolute | 6.6Comment: Testing | 1.9 - 7.4 K/uL | EXTERNAL | | | Segmented | performed at [facility];[address] | | LAB | | | Neutrophils | [address];[place] | | | | | | [address] | | | | + + + + + -+ | Absolute | 2.0Comment: Testing | 1.0 - 3.9 K/uL | EXTERNAL | | | Lymphocytes | performed at [facility];[address] | | LAB | | | | [address];[place] | | | | | | [address] | | | | + + + + + -+ | Absolute | 1.0 (H)Comment: Testing | 0 - 0.8 K/uL | EXTERNAL | | | Monocytes | performed at [facility];[address] | | LAB | | | | [address] | | | | | | [address] | | | | + + + + + -+ | Absolute | 0.2Comment: Testing | 0 - 0.5 K/uL | EXTERNAL | | | Eosinophils | performed at [facility];[address] | | LAB | | | | [address];[place] | | | | | | [address] | | | | + + + + + -+ | Absolute | 0.1Comment: Testing | 0 - 0.1 K/uL | EXTERNAL | | | Basophils | performed at [facility];[address] | | LAB | | | | [address];[place] | | | | | | [address] | | | | + + + + + -+ | Na | 138Comment: Testing | 135 - 143 | EXTERNAL | | | | performed at [facility];[address] | mmol/L | LAB | | | | [address];[place] | | | | | | [address] | | | | + + + + + -+ | K | 3.9Comment: Testing | 3.5 - 4.9 | EXTERNAL | | | | performed at [facility];[address] | mmol/L | LAB | | | | [address];[place] | | | | | | [address] | | | | + + + + + -+ | Cl | 104Comment: Testing | 99 - 109 mmol/L | EXTERNAL | | | | performed at [facility];[address] | | LAB | | | | [address];[place] | | | | | | [address] | | | | + + + + + -+ | CO2 | 29Comment: Testing | 23 - 32 mmol/L | EXTERNAL | | | | performed at [facility];[address] | | LAB | | | | [address];[place] | | | | | | [address] | | | | + + + + + -+ | Anion Gap | 10Comment: Testing | 5 - 20 mmol/L | EXTERNAL | | | | performed at [facility];[address] | | LAB | | | | [address];[place] | | | | | | [address] | | | | + + + + + -+ | Glucose, | 189 (H)Comment: Testing | 65 - 99 mg/dL | EXTERNAL | | | Fasting | performed at [facility];[address] | | LAB | | | | [address];[place] | | | | | | [address] | | | | + + + + + -+ | BUN | 16Comment: Testing | 8 - 25 mg/dL | EXTERNAL | | | | performed at [facility];[address] | | LAB | | | | [address];[place] | | | | | | [address] | | | | + + + + + -+ | Creatinine | 1.33 (H)Comment: Testing | 0.70 - 1.30 | EXTERNAL | | | | performed at [facility];[address] | mg/dL | LAB | | | | [address];[place] | | | | | | [address] | | | | + + + + + -+ | BUN/Creatin | 12Comment: Testing | | EXTERNAL | | | ine Ratio | performed at [facility];[address] | | LAB | | | | [address];[place] | | | | | | [address] | | | | + + + + + -+ | Calcium | 9.0Comment: Testing | 8.5 - 10.2 | EXTERNAL | | | | performed at [facility];[address] | mg/dL | LAB | | | | [address];[place] | | | | | | [address] | | | | + + + + + -+ | Protein, | 7.5Comment: Testing | 6.3 - 8.2 g/dL | EXTERNAL | | | Total | performed at [facility];[address] | | LAB | | | | [address];[place] | | | | | | [address] | | | | + + + + + -+ | Albumin | 3.5 (L)Comment: Testing | 3.6 - 5.0 g/dL | EXTERNAL | | | | performed at [facility];[address] | | LAB | | | | [address];[place] | | | | | | [address] | | | | + + + + + -+ | Globulin | 4.1Comment: Testing | 1.3 - 4.9 g/dL | EXTERNAL | | | | performed at [facility];[address] | | LAB | | | | [address];[place] | | | | | | [address] | | | | + + + + + -+ | A/G Ratio | 0.9 (L)Comment: Testing | 1.0 - 2.4 | EXTERNAL | | | | performed at [facility];[address] | | LAB | | | | [address] | | | | | | [address] | | | | + + + + + -+ | Bilirubin | 0.3Comment: Testing | 0.1 - 1.5 mg/dL | EXTERNAL | | | Total | performed at [facility];[address] | | LAB | | | | [address] | | | | | | [address] | | | | + + + + + -+ | ALP, | 89Comment: Testing | 35 - 115 U/L | EXTERNAL | | | External | performed at [facility];[address] | | LAB | | | | [address] | | | | | | [address] | | | | + + + + + -+ | AST | 18Comment: Testing | 10 - 45 U/L | EXTERNAL | | | | performed at [facility];[address] | | LAB | | | | [address];[place] | | | | | | [address] | | | | + + + + + -+ | ALT | 23Comment: Testing | 10 - 65 U/L | EXTERNAL | | | | performed at [facility];[address] | | LAB | | | | [address] | | | | | | [address] | | | | + + + + + -+ | Estimated | 59 (L)Comment: GFR <60: | mL/min/1.73m2 | EXTERNAL [...] | | | | | | at [facility];[address];[place] [address] | | | | + + + + + -+ | CK, Total | 116Comment: Testing | 55 - 400 U/L | EXTERNAL | | | | performed at [facility];[address] | | LAB | | | | [address];[place] | | | | | | [address] | | | | + + + [...] | | | | | performed at [facility];[address] | | | | | | [address];[place] | | | | | | [address] | | | | + + + + + -+ | aPTT, | 24Comment: Testing | 23 - 32 seconds | EXTERNAL | | | Patient | performed at [facility];[address] | | LAB | | | | [address];[place] | | | | | | [address] | | | | + + + + + -+ | CK-MB | 3.8 (H)Comment: Testing | 0.5 - 3.6 ng/mL | EXTERNAL | | | | performed at [facility];[address] | | LAB | | | | [address];[place] | | | | | | [address] | | | | + + + [...] + +---------+ + + ECG 12 lead (02/04/2014 6:17 PM PST) + + + + + + | Component | Value | Ref Range | Performed | Pathologist | | | | | At | Signature | + + + + + + | DIAGNOSIS: | Sinus rhythm with | | EXTERNAL | | | | Premature | | LAB | | | | supraventricular | | | | | | complexesProlonged | | | | | | QTAbnormal ECGWhen | | | | | | compared with ECG of | | | | | | 03-FEB-2014 | | | | | | 23:02,Premature | | | | | | supraventricular | | | | | | complexes [...] (500), | | | | | | newspaper editor managing Keyla Gregory | | | | | | (25) on 02/05/2014 | | | | | | 2:29:16 AM | | | | + + + + + + + + | Specimen | + + | | + + + + + | Narrative | Performed At | + + + | Historically converted procedure from [facility] Epic environment | EXTERNAL LAB | [...] pain Chest pain, unspecified | + + documented in this encounter
--- OUTSIDE RECORDS SUMMARY | ~2019-09-09 | XMS | Encounter Summary ---
Demographics + + + | Address | [address] | | | [place] [address] | + + + | Home Phone | | + + + | Preferred Language | Unknown | + + + | Marital Status | | + + + | Lutheran Affiliation | 1027 | + + + | Race | Unknown | + + + | Ethnic Group | Unknown | + + + Author + + + | Author | [facility] | | | and [place] | + + + | Organization | [facility] | | | and [place] | + + + | Address | Unknown | + + + | Phone | Unavailable | + + + Support + + + + + | Name | Relationship | Address | Phone | + + + + + | Sammi Kohler | E[place] | [place] [address] | | + + + + + Care Team Providers + +------+ + | Care Site Inspector Name | Role | Phone | + +------+ + PCP | Unavailable | + +------+ + Encounter Details +--------+ + + + + | Date | Type | Department | Care Team | Description | +--------+ + + + + | 01/27/ | Emergency | [facility] | Zach Tena, | Non-cardiac chest | | 2015 - | | MEDICAL CENTER | [address] | pain | | | | EMERGENCY CENTER | [place] [address] | | | 01/28/ | | [address] | [phone] | | | 2014 | | [place], [place] | | | | | | [address] | | | | | | [phone] | | | +--------+ + + + [...] Progress Notes Conversion Transaction, Provider Unknown - 01/27/2015 8:44 PM PSTFormatting of this note m ight be different from the original. Case Management by QUINN Harrell LICSW at 01/27/152043 Author: QUINN Harrell LICSW Service: (none) Author Type: Pickling Machine Operator Filed: 01/27/152047 Date of Service: 01/27/152043 Status: Signed Hazardous Materials Handler: QUINN Harrell LICSW (Pickling Machine Operator) 01/27/152036 Discharge Planning Evaluation Admitting Diagnosis Back pain and chest pain. Readmission Other (comment) (It appears it may be exactly 30 days) Living Arrangements Other (Comment) (roommate) Support Systems Gnosticism/pedro luis community;Friends/neighbors Type of Residence Private residence Independent with ADL's Yes Independent with Mobility Yes Mental Status Other (comment) (cognitive decline - DD patient) Anticipated Discharge Plan Post Acute Care Needs None at this time Resources Financial concerns No Transportation issues No Patient/Family concerns No Prescription Plan Yes Anticipated Disposition Facility Type Home Discharge Appointment Time (no estimated date or time) Met with: patient and two of the elders (One of the elders is Anthony Loya - [phone]) from his uatsdin to discussed discharge planning, Pt is a 59 y.o., male Patient's PCP is: JERRELL GUTIÉRREZ Patient's insurance: Medicare Coverage concerns: None expressed Medication coverage/concerns: None expressed [facility] Bedside Delivery: Community resources utilized / needed: TBD Assistance in transportation: No Dial-A-Ride Identification of any specific education / training: TBD Barriers to Discharge / Alternative housing needed: Patient would benefit from living in an AFH. Patient was living in an AF[facility], but he moved out. Anticipated DCP: Home with support from his uatsdin. Jenn Garg onver ivana Badillo Provider Unknown - 01/27/2015 8:32 PM PST Case Management by QUINN Harrell LICSW at 01/27/152031 Author: QUINN Harrell LICSW Service: (none) Author Type: Pickling Machine Operator Filed: 01/27/152035 Date of Service: 01/27/152031 Status: Signed Hazardous Materials Handler: QUINN Harrell LICSW (Pickling Machine Operator) LARA met with the patient and spoke with his uatsdin elders with the patient's permission. CM spoke with Anthony Loya [phone] about patient's difficulties managing his basic daily ne eds. CM spoke with his about how patient would benefit from living in an AFH. Mr. Loya is going to speak with the patient's Paez to ensure patient obtains the assistance needed. CM also provided information about community supports as well as Consistent [facility] information. The uatsdin elders will explore options to assist. Patient is being admitted. docume nted in this encounter ED Notes Conversion Transaction, Provider Unknown - 01/27/2015 11:05 PM PSTFormatting of this note m ight be different from the original. ED Notes by Yanna Loera RN at 01/27/152304 Author: Yanna Loera RN Service: (none) Author Type: Registered Nurse Filed: 01/27/152304 Date of Service: 01/27/152304 Status: Signed Hazardous Materials Handler: Yanna Loera RN (Registered Nurse) Pt fed per order. Call light within reach. Yanna Loera RN 01/27/152304 onver ivana Transaction, Provider Unknown - 01/27/2015 8:09 PM PST ED Notes by Yanna Loera RN at 01/27/152008 Author: Yanna Loera RN Service: (none) Author Type: Registered Nurse Filed: 01/27/152008 Date of Service: 01/27/152008 Status: Signed Hazardous Materials Handler: Yanna Loera RN (Registered Nurse) Pt updated on plan of care, IVF infusing, call light within reach. Yanna Loera RN 01/27/152008 Zach Smyth MD - 01/27/2015 7:44 PM PSTFormatting of this note might be different from the o riginal. ED Provider Notes by Zach Tena MD at 01/27/151943 Author: Zach Tena MD Service: (none) Author Type: Physician Filed: 02/03/15 0804 Date of Service: 01/27/151943 Status: Signed Hazardous Materials Handler: Zach Tena MD (Physician) [facility] Department of Emergency Medicine 7:44 PM 01/27/15 History of Present Illness Patient Identification Norah Gr is a 59 y.o. male. Patient information was obtained from patient. History/Exam limitations: none. Patient presented to the Emergency Department by: Car Chief Complaint Chief Complaint Patient presents with Back Pain lower back Chest Pain This is a 59 y.o. male with chief complaint of chest pain. Onset of symptoms was 5:30, with a worsening course since that time. The symptoms are currently described to be of moderate severity. The patient states that the pain is sharp and heavy in the center of his chest. T he symptoms are improved by nothing and worsened by nothing. Pt also complains of lower sami k pain, vomiting x2, excessive sleeping, and abdominal pain. Pt denies cough. The patient re ports living in an apartment with a roommate. The patient reports that he has had similar ch est pain previously. Care prior to arrival consisted of tums, with no relief. Other significant factors in the PMH are noted and include: Admitted on 12/27/14 for chest pain, his last cardiac cath was in 10/2013 which showed minimal arthrosclerosis, with normal LV function, echocardiogram in 04/2014 that was normal, on his admission they did a troponins which proved to be negative, he had no recurrence of chest pain during admission and was d/ c 24 hours later. Since that time he was seen on 01/18/15 for hyperglycemia, 01/19/15 for ab dominal pain and vomiting, 01/25 for hyperglycemia. PCP: JERRELL GUTIÉRREZ Past Medical History Diagnosis [...] - CHOLECYSTECTOMY; Surgeon: Jevon Vargas DO; Location: [facility]; Service: General; Laterality: N/A; Abdominal surgery Cholecystectomy Skin cancer excision 10/10/2012 Procedure: EXCISION - SKIN CANCER; Surgeon: Sy Fierro MD; Location: [facility] ; Service: Plastics; Laterality: Left; upper arm and upper back w/frozen section Esophagogastroduodenoscopy 03/03/2013 Procedure: ESOPHAGOGASTRODUODENOSCOPY; Surgeon: Howie Gibson MD; Location: [facility]; S ervice: Gastroenterology; Laterality: N/A; Colonoscopy 03/04/2013 Procedure: COLONOSCOPY; Surgeon: Howie Gibson MD; Location: [facility]; Service: Gastroe nterology; Laterality: N/A; Upper gastrointestinal endoscopy Skin biopsy Hernia repair 07/03/2013 Procedure: LAPAROSCOPIC - HERNIA - INCISIONAL; Surgeon: Jevon Vargas DO; Location: [facility]; Service: General; Laterality: N/A; Skin lesion excision Left 05/05/2014 Procedure: EXCISION - LESION - FROZEN SECTION; Surgeon: Sy Fierro MD; Location: [facility]; Service: Plastics; Laterality: Left; forearm Prior to Admission medications Medication Sig Start Date End Date Taking? Authorizing Provider Albuterol Sulfate (VENTOLIN HFA IN) Inhale 2 puffs into the lungs as needed. 108 mcg/act Historical Provider Qmtsz-H-Plkzgyttdsesf (BEANO) TABS Take 150 Units by mouth [...] Units into the skin nightly. 12/03/13 Augustine gAosto MD lamoTRIgine (LAMICTAL) 100 MG tablet Take 100 mg by mouth nightly. Historical Provider guiowvkmb-ivpxtjxf-pfpcmohrk hydroxide-simethicone Take 40 mLs by mouth daily [...] Lives alone x 1 wk, moved from [facility], , 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 2 falls in the last 6 months. Family History Problem Relation Age of Onset Heart disease Father Heart disease Sister Diabetes type II Sister Heart Problems Brother Review of Systems Review of Systems Constitutional: Negative for fever. Respiratory: Negative for cough. Cardiovascular: Positive for chest pain. Gastrointestinal: Positive for nausea, vomiting and abdominal pain. Genitourinary: Negative for dysuria. Musculoskeletal: Negative for back pain (lumbar). Skin: Negative for rash. Neurological: Negative for dizziness. Psychiatric/Behavioral: Negative for depression. Physical Exam BP 119/58 mmHg | Pulse 71 | Temp(Src) 96.5 F (35.8 C) (Oral) | Resp 16 | Wt 106.142 kg (234 lb) | SpO2 97% Vitals: Normal Pulse Oximetry Interpretation: Normal General: Alert, in no acute distress, non-toxic, dishelveled Head: Normocephalic. Atraumatic. Eyes: Normal inspection, pupils [...] and Emergency Department Course ED Department Course 7:44 PM Pt presents to the ED complaining of chest pain. On exam, pt is disheveled, otherw ise normal. I feel that the list of possible emergent diagnoses that the patient requires an evaluation for includes (but is not limited to) GERD, non cardiac chest pain, ACS, vs other. I believ e that laboratory testing and further diagnostic testing is necessary to ensure that there i s no acute emergent cause of the symptoms. 7:56 PM Patient Case is discussed with executive secretary social welfare, who says they will call consistent c are who will follow up. 8:08 PM. Will repeat EKG as initial EKG is changed from previous EKG's. 8:39 PM. Due to EKG changes pt will likely require admission. 10:28 PM. Discussed patient case with Dr. Jimenez, who does not agree to admission, because h e feels strongly that this is non cardiac chest pain. Will discharge patient. 10:52 PM. Patient reevaluation. I have discussed my clinical impression [...] flush 10 mL (10 mLs Intravenous Given 01/27/152006) morphine injection 2 mg (2 mg Intravenous Given 01/27/152041) sodium chloride (bolus) 0.9 % 1,000 mL (1,000 mLs Intravenous New Bag 01/27/152217) sodium chloride (bolus) 0.9 % 1,000 mL (0 mLs Intravenous Stopped 01/27/152114) ondansetron (ZOFRAN) injection 4 mg (4 mg Intravenous Given 01/27/152006) aspirin chewable tablet 324 mg (324 mg Oral Given 01/27/152006) Filed Vitals: 01/27/15 1837 01/27/15201201/27/15211301/27/152216 BP: 119/58 122/80 126/78 126/60 Pulse: 71 64 67 84 Temp: 96.5 F (35.8 C) TempSrc: Oral Resp: Weight: 106.142 kg (234 lb) SpO2: 97% 98% 99% 96% Records Reviewed Old medical records. Nursing notes. Previous ED visits for similar and unrelated complaints. Admitted on 12/27/14 for chest pain, his last cardiac cath was in 10/2013 which showed minim al arthrosclerosis, with normal LV function, echocardiogram in 04/2014 that was normal, on hi s admission they did serial troponins which proved to be negative, he had no recurrence of c hest pain during admission and was d/c 24 hours later. Since that time he was seen on for hyperglycemia, 01/19/15 for abdominal pain and vomiting, 01/25 for hyperglycemia. Laboratory Evaluation Results Procedure Component Value Ref Range Date/Time CBC with differential [[id number]] (Abnormal) Collected: 01/27/152003 Order Status: Completed Specimen Information: Blood Updated: 01/27/152042 WBC 12.05 (H) 3.80 - 11.00 K/uL RBC 5.40 4.20 - 5.70 M/uL HGB 12.7 (L) 13.2 - 17.0 g/dL HCT 40.0 39.0 - 50.0 % MCV 74.0 (L) 80.0 - 100.0 fl MCH 23.5 (L) 27.0 - 34.0 pg MCHC 31.7 (L) 32.0 - 35.5 g/dL RDW SD 42.9 37 - 53 fl PLT 294 150 - 400 K/uL MPV 7.8 fl DIFF TYPE MANUAL Neutrophils Manual 72 % Lymphocytes Manual 16 % Monocytes Manual 10 % Eosinophils Manual 2 % Neutrophils Absolute 8.67 (H) 1.90 - 7.40 K/uL Lymphocytes Absolute 1.93 1.00 - 3.90 K/uL Monocytes Absolute 1.21 (H) 0.00 - 0.80 K/uL Eosinophils Absolute 0.24 0.00 - 0.50 K/uL Platelet Estimate ADEQUATE MORPHOLOGY 2+ Comprehensive metabolic panel [[id number]] (Abnormal) Collected: 01/27/152003 Order Status: Completed Specimen Information: Blood Updated: 01/27/152034 SODIUM 139 135 - 143 mmol/L POTASSIUM 3.7 3.5 - 4.9 mmol/L CHLORIDE 104 99 - 109 mmol/L CO2 25 23 - 32 mmol/L ANION GAP AGAP 14 5 - 20 mmol/L GLUCOSE 295 (H) 65 - 99 mg/dL BUN 22 8 - 25 mg/dL CREATININE 1.1 0.70 - 1.30 mg/dL BUN/CREAT 20 CALCIUM 8.1 (L) 8.5 - 10.5 mg/dL TOTAL PROTEIN 7.2 6.3 - 8.2 g/dL Albumin 3.0 (L) 3.3 - 4.8 g/dL GLOBULIN 4.1 1.3 - 4.9 g/dL A/G 0.7 (L) 1.0 - 2.4 TBIL 0.2 0.1 - 1.5 mg/dL ALK PHOS 140 (H) 35 - 115 U/L AST 17 10 - 45 U/L ALT 24 10 - 65 U/L EGFR >60 >60 mL/min/1.73m2 Lipase [[id number]] Collected: 01/27/152003 Order Status: Completed Specimen Information: Blood Updated: 01/27/152034 LIPASE 195 73 - 393 U/L Troponin I, Lab [[id number]] Collected: 01/27/152003 Order Status: Completed Specimen Information: Blood Updated: 01/27/152034 TROPONIN I <0.020 0.00 - 0.10 ng/mL Protime [[id number]] Collected: 01/27/152003 Order Status: Completed Specimen Information: Blood Updated: 01/27/152026 INR 1.6 POC cardiac troponin [[id number]] Collected: 01/27/152004 Order Status: Completed Updated: 01/27/152018 POC CARDIAC TROPONIN 0.00 0.00 - 0.10 ng/mL I personally reviewed the lab results and they have been posted to the chart. Pertinent po sitive and negative findings have been addressed appropriately. Radiology and EKG Evaluation Imaging Results XR chest PA and lateral (Final result) Result time: 01/27/15 20:46:19 Final result by Rad Results In Richard (01/27/15 20:46:19) Impression: 1. No acute process. Narrative: NORAH GR XR CHEST 2 VIEW FRONTAL AND LATERAL HISTORY: 59 years. Male. Chest pain. TECHNIQUE: Frontal and lateral views of the chest were obtained. COMPARISON: 12/27/2014 FINDINGS: Heart is normal in size. No pulmonary vascular congestion. No pneumothorax. No focal airspa ce disease or pleural effusion. EKG 185 NSR rate of 60 Biphasic T waves, flipped T waves which are new compared to previous EKG EKG 2014 NSR rate of 72 Appears unchanged from initial EKG done today. ED Diagnosis Final diagnosis Non-cardiac chest pain Disposition: ED Disposition Discharge Condition at discharge: Stable Follow-up Information Follow up With Details Comments Contact [facility] Emergency Department If symptoms worsen [address] [facility] [address] Jerrell Gutiérrez DO [address] [place] [address] Jerrell Gutiérrez DO In 1 week for follow up [address] [place] [address] Discharge Medications: New Prescriptions No new medications Procedures Additional Documentation Procedures Attending Note: Documentation assistance provided by Lesly Looney (Scribe). Information recorded by the scribe has been reviewed and validated by me. Troy laughlin with its contents. MD Zach Church MD 02/03/15 0804 onversion Transacti on, Provider Unknown - 01/27/2015 7:01 PM PSTFormatting of this note might be different fro m the original. ED Notes by Tarah Ross at 01/27/151900 Author: Tarah Ross Service: (none) Author Type: Computer Project Manager Filed: 01/27/151900 Date of Service: 01/27/151900 Status: Signed Hazardous Materials Handler: Tarah Ross (Computer Project Manager) EKG completed and shown to James Ross 01/27/151900 onver ivana Transaction, Provider Unknown - 01/27/2015 6:53 PM PST ED Notes by Jaye Meraz at 01/27/151852 Author: Jaye Meraz Service: (none) Author Type: Computer Project Manager Filed: 01/27/151852 Date of Service: 01/27/151852 Status: Signed Hazardous Materials Handler: Jaye Meraz (Computer Project Manager) EKG completed by Aide Meraz 01/27/151852 docume nted in this encounter Plan of Treatment +--------+---------+ + + + | Date | Type | Specialty | Care Team | Description | +--------+---------+ + + + | 09/10/ | Office | Geriatric Medicine | Mireya Pack, | | 2019 | Visit | | [facility] [address] | | | | | | [address], | | | | | | [place] [address] | | | | | | [phone] | | | | | | | | +--------+---------+ + + + | 09/29/ | Office | Urology | Mireya Pack, | | | 2020 | Visit | | [facility] [address] | | | | | | [address] [place], | | | | | | [place] [address] | | | | | | [phone] | | | | | | | | | | | | Toy Wild W, DO | | | | | | [address] | | | | | | [place] [address] | | | | | | [phone] | | | | | | | | +--------+---------+ + + + documented as of this encounter Procedures + +--------+ + + + | Procedure Name | Priori | Date/Time | Associated Diagnosis | Comments | | | ty | | | | + +--------+ + + + | URINALYSIS, REFLEX | Routin | 01/27/2015 | | Results for this | | MICROSCOPIC AND/OR | e | 11:07 PM | | procedure are in the | | CULTURE | | PST | | results section. | + +--------+ + + + | XR CHEST 2 VIEWS | Routin | 01/27/2015 | | Results for this | | | e | 8:37 PM | | procedure are in the | | | | PST | | results section. | + +--------+ + + + | ECG 12 LEAD | Routin | 01/27/2015 | | Results for this | | | e | 8:15 PM | | procedure are in the | | | | PST | | results section. | + +--------+ + + + | EXTERNAL LAB: CBC | Routin | 01/27/2015 | | Results for this | | | e | 8:04 PM | | procedure are in the | | | | PST | | results section. | + +--------+ + + + | TROPONIN I | Routin | 01/27/2015 | | Results for this | | | e | 8:04 PM | | procedure are in the | | | | PST | | results section. | + +--------+ + + + | PROTIME INR | Routin | 01/27/2015 | | Results for this | | | e | 8:04 PM | | procedure are in the | | | | PST | | results section. | + +--------+ + + + | LIPASE | Routin | 01/27/2015 | | Results for this | | | e | 8:04 PM | | procedure are in the | | | | PST | | results section. | + +--------+ + + + | COMPREHENSIVE | Routin | 01/27/2015 | | Results for this | | METABOLIC PANEL | e | 8:04 PM | | procedure are in the | | | | PST | | results section. | + +--------+ + + + | ECG 12 LEAD | Routin | 01/27/2015 | | Results for this | | | e | 6:52 PM | | procedure are in the | | | | PST | | results section. | + +--------+ + + + documented in this encounter Results Urinalysis, Reflex Microscopic and/or Culture (01/27/2015 11:07 PM PST) + + + + + + | Component | Value | Ref Range | Performed | Pathologist | | | | | At | Signature | + + + + + + | Color | YELLOWComment: Testing | | EXTERNAL | | | | performed at [facility] | | LAB | | | | [address];[place], [place] | | | | | | [address] | | | | + + + + + + | Clarity, | CLEARComment: Testing | | EXTERNAL | | | Urine | performed at [facility];[address] | | LAB | | | | [address];[place] | | | | | | [address] | | | | + + + + + + | Specific | 1.012Comment: Testing | 1.002 - 1.030 | EXTERNAL | | | [place], | performed at [facility];[address] | | LAB | | | Urine | [address];[place] | | | | | | [address] | | | | + + + + + + | Leukocyte | NEGATIVEComment: Testing | | EXTERNAL | | | Esterase, | performed at [facility];[address] | | LAB | | | Urine | [address];[place] | | | | | | [address] | | | | + + + + + + | Nitrite, | NEGATIVEComment: Testing | | EXTERNAL | | | Urine | performed at [facility];[address] | | LAB | | | | [address];[place] | | | | | | [address] | | | | + + + + + + | Urobilinoge | NORMALComment: Testing | mg/dL | EXTERNAL | | | n, Urine | performed at [facility];[address] | | LAB | | | | [address];[place] | | | | | | [address] | | | | + + + + + + | Protein, | NEGATIVEComment: Testing | mg/dL | EXTERNAL | | | Urine | performed at [facility];[address] | | LAB | | | | [address];[place] | | | | | | [address] | | | | + + + + + + | pH, Urine | 5.0Comment: Testing | 5.0 - 8.0 | EXTERNAL | | | | performed at [facility];[address] | | LAB | | | | [address];[place] | | | | | | [address] | | | | + + + + + + | Blood, | NEGATIVEComment: Testing | | EXTERNAL | | | Urine | performed at [facility];[address] | | LAB | | | | [address];[place] | | | | | | [address] | | | | + + + + + + | Ketones | NEGATIVEComment: Testing | mg/dL | EXTERNAL | | | | performed at [facility];[address] | | LAB | | | | [address];[place] | | | | | | [address] | | | | + + + + + + | Bilirubin, | NEGATIVEComment: Testing | | EXTERNAL | | | Urine | performed at [facility];[address] | | LAB | | | | [address];[place] | | | | | | [address] | | | | + + + + + + | Glucose, | >500 (A)Comment: Testing | mg/dL | EXTERNAL | | | Urine | performed at [facility];[address] | | LAB | | | | [address];[place] | | | | | | [address] | | | | + + + + + + | WBC, UA | 3-5Comment: Testing | 0 - 5 /hpf | EXTERNAL | | | | performed at [facility];[address] | | LAB | | | | [address];[place] | | | | | | [address] | | | | + + + + + + | RBC, UA | 0-2Comment: Testing | 0 - 2 /hpf | EXTERNAL | | | | performed at [facility];[address] | | LAB | | | | [address];[place] | | | | | | [address] | | | | + + + + + + | Bacteria, | NONE SEENComment: | | EXTERNAL | | | UA | Testing performed at | | LAB | | | | [facility];[address];[place] [address] | | | | + + + + + + | Epithelial | 11-15Comment: Testing | /lpf | EXTERNAL | | | Cells | performed at [facility];[address] | | LAB | | | | [address];[place] | | | | | | [address] | | | | + + + + + + | Mucus, | 1+Comment: Testing | | EXTERNAL | | | Urine | performed at [facility];[address] | | LAB | | | | [address];[place] | | | | | | [address] | | | | + + + + + + | HYALINE | 0-2Comment: Testing | | EXTERNAL | | | CASTS UA | performed at [facility];[address] | | LAB | | | | [address];[place] | | | | | | [address] | | | | + + + + + + + + | Specimen | + + | | + + + +---------+ + + | Performing | Address | City/State/Zipcode | Phone Number | | Organization | | | | + +---------+ + + | EXTERNAL LAB | | | | + +---------+ + + XR Chest 2 Vws (01/27/2015 8:37 PM PST) + + | Specimen | + + | | + + + + + | Impressions | Performed At | + + + | 1. No acute process. | | + + + + + + | Narrative | Performed At | + + + | NORAH MENSAH CHEST 2 VIEW FRONTAL AND LATERAL HISTORY: 59 | | | years. Male. Chest pain. TECHNIQUE: Frontal and lateral views of | | | the chest were obtained. COMPARISON: 12/27/2014 FINDINGS: | | | Heart is normal in size. No pulmonary vascular congestion. No | | | pneumothorax. No focal airspace disease or pleural effusion. | | + + + + + | Procedure Note | + + | Richard, Rad Conversion - 09/20/2018 10:29 PM PDT NORAH AMARAL CHEST 2 VIEW FRONTAL | | AND LATERAL HISTORY:59 years. Male. Chest pain. TECHNIQUE:Frontal and lateral views of | | the chest were obtained. COMPARISON:12/27/2014 FINDINGS:Heart is normal in size. No | | pulmonary vascular congestion. No pneumothorax. No focal airspace disease or pleural | | effusion. IMPRESSION: 1. No acute process. | |TECHNIQUE: | |Frontal and lateral views of the chest were obtained. | | | |COMPARISON: | |12/27/2014 | | | |FINDINGS: | |Heart is normal in size. No pulmonary vascular congestion. No pneumothorax. No focal airspa ce disease or pleural effusion. | | | |IMPRESSION: | |1. No acute process. | | | | | + + ECG 12 lead (01/27/2015 8:15 PM PST) + + + + [...] | | | | | ECG of 19-JAN-2015 | | | | | | 20:57,Nonspecific T wave | | | | | [...] (500), | | | | | | non linear editor Keyla Gregory | | | | | | (25) on 01/28/2015 | | | | | | 3:37:21 AM | | | | + + + + + + + + | Specimen | + + | | + + + + + | Narrative | Performed At | + + + | Historically converted procedure from [facility] Epic environment | EXTERNAL LAB | + + + + +---------+ + + | Performing | Address | City/State/Zipcode | Phone Number | | Organization | | | | + +---------+ + + | EXTERNAL LAB | | | | + +---------+ + + Troponin I (01/27/2015 8:04 PM PST) + + + + + [...] | | | | | | ACUTE PA Testing | | | | | | performed at [facility] | | | | | | [address];[place], [place] | | | | | | [address] | | | | + + + + + + + + | Specimen | + + | Blood specimen | | (specimen) | + + + +---------+ + + | Performing | Address | City/State/Zipcode | Phone Number | | Organization | | | | + +---------+ + + | EXTERNAL LAB | | | | + +---------+ + + Protime INR (01/27/2015 8:04 PM PST) + + + + + + | Component | Value | Ref Range | Performed | Pathologist | | | | | At | Signature | + + + + + + | INR | 1.6Comment: REFERENCE | | EXTERNAL | | | [...] [place];[address] | | | | | | [facility];[place], [place] | | | | | | [address] | | | | + + + [...] + +---------+ + + External Lab: CBC (01/27/2015 8:04 PM PST) + + + + + + | Component | Value | Ref Range | Performed | Pathologist | | | | | At | Signature | + + + + + + | WBC | 12.05 (H)Comment: | 3.80 - 11.00 | EXTERNAL | | | | Testing performed at | K/uL | LAB | | | | [facility];[address];[place] [address] | | | | + + + + + + | Non- | 5.40Comment: Testing | 4.20 - 5.70 | EXTERNAL | | | Red Blood | performed at [facility];[address] | M/uL | LAB | | | Cells | [address];[place] | | | | | Counted | [address] | | | | + + + + + + | Hemoglobin | 12.7 (L)Comment: Testing | 13.2 - 17.0 | EXTERNAL | | | | performed at [facility];[address] | g/dL | LAB | | | | [address];[place] | | | | | | [address] | | | | + + + + + + | Hematocrit, | 40.0Comment: Testing | 39.0 - 50.0 % | EXTERNAL | | | POC | performed at [facility];[address] | | LAB | | | | [address];[place] | | | | | | [address] | | | | + + + + + + | MCV | 74.0 (L)Comment: Testing | 80.0 - 100.0 fl | EXTERNAL | | | | performed at [facility];[address] | | LAB | | | | [address];[place] | | | | | | [address] | | | | + + + + + + | MCH | 23.5 (L)Comment: Testing | 27.0 - 34.0 pg | EXTERNAL | | | | performed at [facility];[address] | | LAB | | | | [address];[place] | | | | | | [address] | | | | + + + + + + | MCHC | 31.7 (L)Comment: Testing | 32.0 - 35.5 | EXTERNAL | | | | performed at [facility];[address] | g/dL | LAB | | | | [address];[place] | | | | | | [address] | | | | + + + + + + | RDW-CV | 42.9Comment: Testing | 37 - 53 fl | EXTERNAL | | | | performed at [facility];[address] | | LAB | | | | [address];[place] | | | | | | [address] | | | | + + + + + + | Platelet | 294Comment: Testing | 150 - 400 K/uL | EXTERNAL | | | Count | performed at [facility];[address] | | LAB | | | Plasma | [address];[place] | | | | | | [address] | | | | + + + + + + | MPV | 7.8Comment: Testing | fl | EXTERNAL | | | | performed at [facility];[address] | | LAB | | | | [address];[place] | | | | | | [address] | | | | + + + + + + | Differentia | MANUALComment: Testing | | EXTERNAL | | | l Type | performed at [facility];[address] | | LAB | | | | [address];[place] | | | | | | [address] | | | | + + + + + + | Segmented | 72Comment: Testing | % | EXTERNAL | | | Neutrophils | performed at [facility];[address] | | LAB | | | Manual | [address];[place] | | | | | | [address] | | | | + + + + + + | Lymphocytes | 16Comment: Testing | % | EXTERNAL | | | Manual | performed at [facility];[address] | | LAB | | | | [address];[place] | | | | | | [address] | | | | + + + + + + | Monocytes | 10Comment: Testing | % | EXTERNAL | | | Manual | performed at [facility];[address] | | LAB | | | | [address];[place] | | | | | | [address] | | | | + + + + + + | Eosinophils | 2Comment: Testing | % | EXTERNAL | | | Manual | performed at [facility];[address] | | LAB | | | | [address];[place] | | | | | | [address] | | | | + + + + + + | Absolute | 8.67 (H)Comment: Testing | 1.90 - 7.40 | EXTERNAL | | | Neutrophils | performed at [facility];[address] | K/uL | LAB | | | | [address];[place] | | | | | | [address] | | | | + + + + + + | Absolute | 1.93Comment: Testing | 1.00 - 3.90 | EXTERNAL | | | Lymphocytes | performed at [facility];[address] | K/uL | LAB | | | | [address];[place] | | | | | | [address] | | | | + + + + + + | Absolute | 1.21 (H)Comment: Testing | 0.00 - 0.80 | EXTERNAL | | | Monocytes | performed at [facility];[address] | K/uL | LAB | | | | [address];[place] | | | | | | [address] | | | | + + + + + + | Absolute | 0.24Comment: Testing | 0.00 - 0.50 | EXTERNAL | | | Eosinophils | performed at [facility];[address] | K/uL | LAB | | | | [address];[place] | | | | | | [address] | | | | + + + + + + | Platelet | ADEQUATEComment: Testing | | EXTERNAL | | | Estimate | performed at [facility];[address] | | LAB | | | | [address];[place] | | | | | | [address] | | | | + + + + + + | RBC | 2+Comment: | | EXTERNAL | | | Morphology | ANISO2+MICRO2+HYPONORMAL | | LAB | | | | PLT MORPHTesting | | | | | | performed at [facility];[address] | | | | | | [address];[place] | | | | | | [address] | | | | | |HYPO | | | | | |NORMAL PLT MORPH | | | | | |Testing performed at [facility];[address];[place] [address] | | | | | | | [...] | | + +---------+ + + Lipase (01/27/2015 8:04 PM PST) + + + + + + | Component | Value | Ref Range | Performed | Pathologist | | | | | At | Signature | + + + + + + | Lipase | 195Comment: Testing | 73 - 393 U/L | EXTERNAL | | | | performed at [facility];[address] | | LAB | | | | [address];[place], [place] | | | | | | [address] | | | | + + + [...] + +---------+ + + Comprehensive Metabolic Panel (01/27/2015 8:04 PM PST) + + + + + [...] [place] | | | | | | [address] | | | | + + + + + + | K | 3.7Comment: Testing | 3.5 - 4.9 | EXTERNAL | | | | performed at [facility];[address] | mmol/L | LAB | | | | [address];[place] | | | | | | [address] | | | | + + + + + + | Cl | 104Comment: Testing | 99 - 109 mmol/L | EXTERNAL | | | | performed at [facility];[address] | | LAB | | | | [address];[place] | | | | | | [address] | | | | + + + + + + | CO2 | 25Comment: Testing | 23 - 32 mmol/L | EXTERNAL | | | | performed at [facility];[address] | | LAB | | | | [address];[place] | | | | | | [address] | | | | + + + + + + | Anion Gap | 14Comment: Testing | 5 - 20 mmol/L | EXTERNAL | | | | performed at [facility];[address] | | LAB | | | | [address];[place] | | | | | | [address] | | | | + + + + + + | Glucose, | 295 (H)Comment: Testing | 65 - 99 mg/dL | EXTERNAL | | | Fasting | performed at [facility];[address] | | LAB | | | | [address];[place] | | | | | | [address] | | | | + + + + + + | BUN | 22Comment: Testing | 8 - 25 mg/dL | EXTERNAL | | | | performed at [facility];[address] | | LAB | | | | [address];[place] | | | | | | [address] | | | | + + + + + + | Creatinine | 1.1Comment: Testing | 0.70 - 1.30 | EXTERNAL | | | | performed at [facility];[address] | mg/dL | LAB | | | | [address];[place] | | | | | | [address] | | | | + + + + + + | BUN/Creatin | 20Comment: Testing | | EXTERNAL | | | ine Ratio | performed at [facility];[address] | | LAB | | | | [address];[place] | | | | | | [address] | | | | + + + + + + | Calcium | 8.1 (L)Comment: Testing | 8.5 - 10.5 | EXTERNAL | | | | performed at [facility];[address] | mg/dL | LAB | | | | [address];[place] | | | | | | [address] | | | | + + + + + + | Protein, | 7.2Comment: Testing | 6.3 - 8.2 g/dL | EXTERNAL | | | Total | performed at [facility];[address] | | LAB | | | | [address];[place] | | | | | | [address] | | | | + + + + + + | Albumin | 3.0 (L)Comment: Testing | 3.3 - 4.8 g/dL | EXTERNAL | | | | performed at [facility];[address] | | LAB | | | | [address];[place] | | | | | | [address] | | | | + + + + + + | Globulin | 4.1Comment: Testing | 1.3 - 4.9 g/dL | EXTERNAL | | | | performed at [facility];[address] | | LAB | | | | [address];[place] | | | | | | [address] | | | | + + + + + + | A/G Ratio | 0.7 (L)Comment: Testing | 1.0 - 2.4 | EXTERNAL | | | | performed at [facility];[address] | | LAB | | | | [address];[place] | | | | | | [address] | | | | + + + + + + | Bilirubin | 0.2Comment: Testing | 0.1 - 1.5 mg/dL | EXTERNAL | | | Total | performed at [facility];[address] | | LAB | | | | [address];[place] | | | | | | [address] | | | | + + + + + + | ALP, | 140 (H)Comment: Testing | 35 - 115 U/L | EXTERNAL | | | External | performed at [facility];[address] | | LAB | | | | [address];[place] | | | | | | [address] | | | | + + + + + + | AST | 17Comment: Testing | 10 - 45 U/L | EXTERNAL | | | | performed at [facility];[address] | | LAB | | | | [address];[place] | | | | | | [address] | | | | + + + + + + | ALT | 24Comment: Testing | 10 - 65 U/L | EXTERNAL | | | | performed at [facility];[address] | | LAB | | | | [address];[place] | | | | | | [address] | | | | + + + [...] [address] | | | | | | [address];[place] [address] | | | | + + + [...] + +---------+ + + ECG 12 lead (01/27/2015 6:52 PM PST) + + + + + [...] of | | | | | | 19-JAN-2015 | | | | | | 20:57,Nonspecific T wave | | | | | | abnormality now evident | | | | | | in Inferior | | | | | | leadsNonspecific T wave | | | | | | abnormality now evident | | | | | | in Anterolateral leadsQT | | | | | | has lengthenedThis ECG | | | | | [...] (500), | | | | | | non linear editor Keyla Gregory | | | | | | (25) on 01/28/2015 | | | | | | 3:37:20 AM | | | | + + + + + + + + | Specimen | + + | | + + + + + | Narrative | Performed At | + + + | Historically converted procedure from [facility] Epic environment | EXTERNAL LAB | [...]
--- OUTSIDE RECORDS SUMMARY | ~2019-09-09 | XMS | Encounter Summary ---
Demographics + + + | Address | [address] | | | [place] [address] | + + + | Home Phone | | + + + | Preferred Language | Unknown | + + + | Marital Status | | + + + | Gnosticist Affiliation | [id number] | + + + [...] Sammi Kohler | ECON | [place] [address] | | + + + + + Care Team Providers + +------+ + | Care Vehicle Damage Appraiser Name | Role | Phone | + +------+ + | Mireya Pack NP | PCP | | + +------+ + Reason for Visit + +--------+ + | Reason | Onset | Comments | | | Date | | + +--------+ + | TCM - Hosp FU | 12/27/ | | | | 2018 | | + +--------+ + Encounter Details +--------+ + + + + | Date | Type | Department | Care Team | Description | +--------+ + + + + | 12/27/ | Telephone | [facility] | Sanjuanita Rodriguez RN | TCM - Hosp FU | | 2019 | | [employer] | | | | | | [address] | | | | | | [address] | | | | | | [facility] [place] | | | | | | [address] | | | | | | [phone] | | | +--------+ + + + [...] Telephone Encounter - Sanjuanita Rodriguez RN - 01/01/2019 10:32 AM PSTWas unable to speak with caregiver. Patient reports that he usually gets his prescriptions from Rx pharmacy by magdy harding. I let him know that he has 2 prescriptions at the pharmacy for him, and he states he tito l call them. I will call later today to Rx pharmacy to follow up. States he took his increas ed dose of insulin last night and blood sugar was over 200 this morning. Electronically sig ronald by Sanjuanita Rodriguez RN at 01/01/2019 10:33 AM PSTTelephone Encounter - Sanjuanita Rodriguez RN - 12/31/2018 2:39 PM PSTFollow up call placed to patient. He has not looked over his after visit summary from his primary care provider appointment and was unaware that he had new med ications ordered, or that there had been an increase in his insulin detemir. He was waiting for his caregiver to come in tomorrow to look over his papers. Caregiver should be in tomorrow [phone] to [phone] a call to speak to them. Shiv light says they manage his medications, do cooking, and cleaning for him. Call placed to Rx pharmacy and the medications are there and ready for pick out hand. Explained t o Kevyn that he was to increase his evening insulin to 60 units, he has been taking his prev ious dosage of 45 units nightly. Unable to give me exact numbers, but says that his readings have been in the 200s for capillary blood glucose. Let him know that if after increasing in sulin, his morning reading is < 100, he is to call his provider. Kevyn repeated these ins tructions back to me and states he will start the increased dose tonight. Kevyn has no other questions or concerns at this time. Will place a call tomorrow morning t o be sure that he is able to pick out hand his new prescriptions. elephone Encounter - Dori Loya CMA - 9 9:48 AM PST1. Please ask if patient has had any further instances of chest pain/heaviness (this was determined to be non cardiac related chest pain in the hospital). No, chest pain. Patient reports feeling fatigue, no other symptoms. 2. Was he able to pick out hand new prescriptions and start taking Omeprazole daily before breakf ast and Atorvastatin nightly? Yes, patient picked up new RX and is taking as prescribed. No questions or concerns. 3. Has he increased his Levimir (detemir) insulin to 60 units nightly? No, Patient has the understanding to take 45 units nightly. 4. Please have him read to you and record his morning capillary blood glucose readings for the last 7 days. Have they decreased with the increased insulin? Patient was very unsure due to not being home. He claims morning blood sugars have been 210 -288. 5. Please follow up on referrals for gastroenterology, urology, and dermatology. Have appoi ntments been scheduled yet? Referrals are in and authorized. Patient states " one place has called him" This [facility] will f ollow up on referrals. Told patient This [facility] or a RNCM will follow up with him today or tomorrow. Regarding insuli n and blood sugars. Telephone Encounter - Sanjuanita Rodriguez RN - 12/27/2018 8:00 AM PSTChart Review completed tod and routed to the [facility] clinical pool. Please call patient on 12/31/2018 for follow up. Admission Date: 12/13/18 Discharge Date: 12/13/18 Discharge Disposition: Home or Self Care Principle Discharge Diagnosis: Chest pain Patient had a follow up with primary care provider, Kae BOUCHER, on 12/26/2018. Please review and address the following with the patient: 1. Please ask if patient has had any further instances of chest pain/heaviness (this was de termined to be non cardiac related chest pain in the hospital). 2. Was he able to pick out hand new prescriptions and start taking Omeprazole daily before breakf ast and Atorvastatin nightly? 3. Has he increased his Levimir (detemir) insulin to 60 units nightly? 4. Please have him read to you and record his morning capillary blood glucose readings for the last 7 days. Have they decreased with the increased insulin? 5. Please follow up on referrals for gastroenterology, urology, and dermatology. Have appoi ntments been scheduled yet? documented in this enc ounter Plan of Treatment +--------+---------+ + + + | Date | Type | Specialty | Care Team | Description | +--------+---------+ + + + | 09/10/ | Office | Geriatric Medicine | Mireya Pack, | | | 2019 | Visit | | UNSCRAMBLER [address] | | | | | | [address] [place], | | | | | | [place] [address] | | | | | | [phone] | | | | | | | | +--------+---------+ + + + | 09/29/ | Office | Urology | Mireya Pack, | | | 2019 | Visit | | UNSCRAMBLER [address] | | | | | | [address] [place], | | | | | | [place] [address] | | | | | | [phone] | | | | | | | | | | | | [place], | | | | | | [address] | | | | | | [place] [address] | | | | | | [phone] | | | | | | | | +--------+---------+ + + + documented as of this encounter Visit Diagnoses Not on filedocumented in this encounter
--- OUTSIDE RECORDS SUMMARY | ~2019-09-09 | XMS | Encounter Summary ---
Demographics + + + | Address | [address] | | | [place] [address] | + + + | Home Phone [...] + | Sammi Kohler | ECON | [place] [address] | | + + + + + Care Team Providers + +------+ + | Care Fitness And Wellness Manager Name | Role | Phone | [...] | | [facility] | MD [address] | Platelet dysfunction | | | | [facility] | [place], [place] | due to drugs; | | | | [address] | [address] | Anemia | | | | [place], [place] | | | | | | [address] | | | | | | [phone] | | | +--------+ + + + [...] ED Notes by Itzel Hussein RN at 09/21/12558 Author: Itzel Hussein RN Service: (none) Author Type: Registered Nurse Filed: 09/21/1202 Date of Service: 09/21/12558 Status: Signed Hot Box Operator: Itzel Hussein RN (Registered Nurse) Laceration repaired by Dr. Don with 2.0 ethilon by a figure eight stitch to lac above u mbilicus. Pt tolerated well. Applied multiple 2X2 and placed large cloth tape over. Pt di rected to change dressing in 1 day. tIzel Hussein RN 09/21/1202 onver ivana Transaction, Provider Unknown - 09/21/2012 5:44 AM PDT ED Notes by Itzel Hussein RN at 09/21/1244 Author: Itzel Hussien RN Service: (none) Author Type: Registered Nurse Filed: 09/21/1245 Date of Service: 09/21/12543 Status: Signed Hot Box Operator: Itzel Hussein RN (Registered Nurse) Applied 4X4's with tape to small incision. Pt tolerated well. Itzel Hussein RN 09/21/1245 axweKevyn hines MD - 09/21/2012 5:16 AM PDT ED Provider Notes by Kevyn Don MD at 09/21/12515 Author: Kevyn oDn MD Service: (none) Author Type: Physician Filed: 09/21/12 0559 Date of Service: 09/21/12515 Status: Signed Hot Box Operator: Kevyn Don MD (Physician) [facility] Department of Emergency Medicine History of [...] recent . 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 12/13/11 Yaakov Bridges, DO TAMSULOSIN HCL PO Take 0.4 mg [...] motor deficits, moving all extremities equally, equal revenue stamp cutter, no sensory deficit Psych: Appropriate affect, no [...] this Emergency Department visit: Medications lidocaine-EPINEPHrine 1 %-1:[id number] injection 20 mL (20 mL Infiltration Given 09/21/12 0550) Records Reviewed Old medical records. Nursing notes for this Emergency Department visit were reviewed Recent operative notes Patient records reviewed in the [facility] information systems. I carefully reviewed the record s with regard to the past medical/surgical history, medications, and allergies. Consultations and phone calls: Dr. Vargas Laboratory Evaluation: Results Procedure Component Value Ref Range Date/Time CBC w Auto Diff [[id number]] (Abnormal) Collected:09/21/12529 Order Status:Completed Updated:09/21/12552 Specimen Information:Blood [...] 0 - 0.1 K/uL Complete Metabolic Panel [[id number]] Collected:09/21/12529 Order Status:Sent Updated:09/21/12550 Specimen Information:Blood PT [[id number]] Collected:09/21/12529 Order Status:Sent Updated:09/21/12550 Specimen Information:Blood Interpretation of Laboratory studies: Mild anemia that appears new Radiology and EKG Evaluation Imaging Results None ED Diagnoses Final diagnoses Post-op bleeding Platelet dysfunction due to drugs Anemia Disposition: ED Disposition Orders Discharge Condition at discharge: Stable Follow-up Information Follow up With Details Comments Contact Info Jevon Vargas DO In 1 week [address] [id number] Discharge Medications: New Prescriptions No new medications Additional Documentation Procedures Kevyn Don MD 09/21/12 0559 documented in this encounter Plan of Treatment +--------+---------+ + + + | Date | Type | Specialty | Care Team | Description | +--------+---------+ + + + | 09/10/ | Office | Geriatric Medicine | Mireya Pack, | | | 2019 | Visit | | OFFICE MAIL CLERK [address] | | | | | | [address] [place], | | | | | | [place] [address] | | | | | | [phone] | | | | | | | | +--------+---------+ + + + | 09/29/ | Office | Urology | Mireya Pack, | | | 2019 | Visit | | OFFICE MAIL CLERK [address] | | | | | | [address] [place], | | | | | | [place] [address] | | | | | | [phone] | | | | | | | | | | | | Toy Wild, DO | | | | | | [address] | | | | | | [place] [address] | | | | | | [phone] | | | | | | | [...]
--- OUTSIDE RECORDS SUMMARY | ~2019-09-09 | XMS | Encounter Summary ---
Demographics + + + | Address | [address] | | | [place] [address] | + + + | Home Phone | | + + + | Preferred Language | Unknown | + + + | Marital Status | | + + + | Mandaeism Affiliation | 1027 | + + + [...] + | Sammi Kohler | ECON | [place] [address] | | + + + + + Care Team Providers + +------+ + | Care Director Of Casino Name | Role | Phone | + +------+ + PCP | Unavailable | + +------+ + Encounter Details +--------+ + + + + | Date | Type | Department | Care Team | Description | +--------+ + + + + | 05/12/ | Emergency | [facility] | Zach Tena, | Weakness; | | 2019 | | [facility]ENTER | MD [address] | Hyperglycemia | | | | EMERGENCY CENTER | [place] [address] | without ketosis; | | | | [address] | [phone] | Medical | | | | [place], [place] | | non-compliance | | | | [address] | | | | | | [phone] | | | +--------+ + + + [...] at 05/12/18 1423 Author: González Soni, MS, LEAD FORMER Service: (none) Author Type: Citrus Fruit Colorer Filed: 05/12/18 7016 Date of Service: 05/12/18 1423 Status: Signed Citrus Fruit Colorer: González Soni MS, LEAD FORMER (Citrus Fruit Colorer) Referral to see pt from . Pt presents to Emergency room for syncope. [place] in an independent apartment, pt does not [...] hopes patient would agree to Move to [place] to allow cleopatra prabhakar to be closer to her as her driving is restricted due to her older age. Pt has been re luctant to obtain assisted services again. He had them several years ago, and had decided he wanted more freedom with his finances and life. Pt currently has a appointment person, acco lien, to manage his funds and distribute money [...] . Appears pt is already connected to [facility] Sofie Turnball, getting 20 hours per month by [facility] s care agency. It is not anticipated patient will admit to hospital. Goal is return home via private auto. docume nted in this encounter ED Notes Conversion Transaction, Provider Unknown - 05/12/2018 1:14 PM PDTFormatting of this note m ight be different from the original. ED Notes by Angelia Mccullough RN at 05/12/18 3103 Author: Angelia Mccullough RN Service: (none) Author Type: Registered Nurse Filed: 05/12/181313 Date of Service: 05/12/181313 Status: Signed Citrus Fruit Colorer: Angelia Mccullough RN (Registered Nurse) Bedside report given to EVE Mcgovern. Angelia Mccullough RN 05/12/181313 immel Zach MD - 05/12/2018 9:28 AM PDTFormatting of this note might be different from the o riginal. ED Provider Notes by Zach Tena MD at 05/12/18927 Author: Zach Tena MD Service: (none) Author Type: Physician Filed: 05/13/18614 Date of Service: 05/12/18927 Status: Signed Citrus Fruit Colorer: Zach Tena MD (Physician) [facility] Department of Emergency Medicine 9:29 AM History [...] of GE junction Hypercholesterolemia 07/08/2013 Hyperlipidemia Hypertension FPC (current) use of 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 Obesity, Class I, BMI 30-34.9 07/08/2013 WARD (obstructive sleep apnea) 08/11/2012 does not use CPAP because of the noise Other chronic pain Renal failure Stroke (HCC) TIA (transient ischemic attack) Unspecified visual disturbance reading glasses Past Surgical History Procedure Laterality Date ABDOMINAL SURGERY CHOLECYSTECTOMY CHOLECYSTECTOMY, LAPAROSCOPIC N/A 09/12/2012 Procedure: LAPAROSCOPIC - CHOLECYSTECTOMY; Surgeon: Jevon Vargas DO; Location: [facility] MAIN OR; Service: General; Laterality: N/A; COLONOSCOPY COLONOSCOPY N/A 03/04/2013 Procedure: COLONOSCOPY; Surgeon: Howie Gibson MD; Location: [facility] ENDOSCOPY; Service: Gastroen terology; Laterality: N/A; ESOPHAGOGASTRODUODENOSCOPY N/A 03/03/2013 Procedure: ESOPHAGOGASTRODUODENOSCOPY; Surgeon: Howie Gibson MD; Location: [facility] ENDOSCOPY; Se rvice: Gastroenterology; Laterality: N/A; HERNIA REPAIR N/A 07/03/2013 Procedure: LAPAROSCOPIC - HERNIA - INCISIONAL; Surgeon: Jevon Vargas DO; Location: [facility] MAIN OR; Service: General; Laterality: N/A; KNEE SURGERY rt knee, patella LEG SURGERY LLE SKIN BIOPSY SKIN CANCER EXCISION Left 10/10/2012 Procedure: EXCISION - SKIN CANCER; Surgeon: Sy Fierro MD; Location: [facility] MAIN OR; Service: Plastics; Laterality: Left; upper arm and upper back w/frozen section SKIN LESION EXCISION Left 05/05/2014 Procedure: EXCISION - LESION - FROZEN SECTION; Surgeon: Sy Fierro MD; Location: [facility] OR; Service: Plastics; Laterality: Left; forearm [...] Lives alone x 1 wk, moved from [facility], , 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 [...] on now. 1:36 PM Troponin negative. Grandmother/ resident care provider in the room. Would like to facilitate Emre Guzman getting into an assisted living facility to make sure diet and medications being gi gregory as prescribed. Citrus Fruit Colorer is in the room. 1:59 PM Resources [...] Value Ref Range Date/Time Troponin I, Lab [[id number]] Collected: 05/12/18 1135 Order Status: Completed Specimen: Blood Updated: 05/12/18 1320 TROPONIN I 0.039 0.00 - 0.04 ng/mL Urinalysis (reflex to micro/reflex to culture) [[id number]] (Abnormal) Collected: 05/12 1153 Order Status: Completed Specimen: Urine, Clean Catch Updated: 05/12/18 1206 COLOR UA YELLOW CLARITY CLEAR Specific [place], UA 1.029 1.002 - 1.030 LEUKOCYTE ESTERASE NEGATIVE NEGATIVE NITRITE NEGATIVE NEGATIVE UROBILINOGEN NORMAL <1.1 mg/dL PROTEIN NEGATIVE NEGATIVE mg/dL PH,URINE 5.0 5.0 - 8.0 BLOOD NEGATIVE NEGATIVE KETONES NEGATIVE NEGATIVE mg/dL BILIRUBIN NEGATIVE NEGATIVE GLUCOSE >500 (A) NEGATIVE mg/dL Lipase [[id number]] Collected: 05/12/18924 Order Status: Completed Specimen: Blood Updated: 05/12/18 1159 LIPASE 46 12 - 53 U/L Cardiac Panel [[id number]] (Abnormal) Collected: 05/12/18924 Order Status: Completed Updated: [...] of chronic microvascular ischemia. Signed by: Irina Lam Pushpender Sign Date/Time: 05/12/2018 10:27 AM Narrative: CT [...] Specialties Details Why Contact Info Aging and [facility] Call Call on Monday to discuss getting JOE caregiver in home a nd access to case management services. [phone] [facility] Follow up A referral has been made for social work msw, physical therapy evaluation and intermediate for medication teaching. [address] [facility] [address] [facility] [address] Mik Diego, Family Medicine In 3 days For Outpatient evaluation [address] [place] [address] [facility] [address] Discharge Medications: New Prescriptions No new medications Zach Tena MD Procedures Additional Documentation Procedures Attending Provider Note: I, Zach Tena MD personally performed the services described in this documentation, as scribed by Hermes San in my presence, and it is both accurate and complete. Chart Reviewed and Completed: 05/12/2018 2:00 PM Scribe: Kari Ribeiro, scribing for and in the presence of [...] 05/12/18918 Date of Service: 05/12/18912 Status: Addendum Citrus Fruit Colorer: Samanta Moya RN (Registered Nurse) Related Notes: [...] | | 2019 | Visit | | [facility] [address] | | | | | | [address] [place], | | | | | | [place] [address] | | | | | | [phone] | | | | | | | | +--------+---------+ + + + | 09/29/ | Office | Urology | Mireya Pack, | | | 2019 | Visit | | [facility] [address] | | | | | | [facility] [address] [place], | | | | | | [place] [address] | | | | | | [phone] | | | | | | | | | | | | Toy Wild, DO | | | | | | [address] | | | | | | [place] [address] | | | | | | [phone] | | | | | | | [...] | | | | | ONLY, -COMPUTER ([id number]), | | | | | | film editor supervisor Hortensia Carrillo | | | | | [...] - 1.030 | EXTERNAL | | | [place], | | | LAB | | | [...] | | | Urine | performed at [facility] | | LAB | | | | [address];[place], [place] | | | | | | [address] | | | | + + + [...] at | | | | | | [facility];[address] [place] [address] | | | | | | [facility];[place] [address] | | | | + + + [...] | | | | | | film editor supervisor Lorena Hortensia | | | | | | ([phone]) on 05/12/2018 | | | | | | 9:28:40 PM | | | | + + + + + + + + | Specimen | + + | | + + + + + | Narrative | Performed At | + + + | Historically converted procedure from [facility] | EXTERNAL LAB | + + + [...] | | ischemia. Signed by: Irina Lam, Edd Sign Date/Time: | | | 05/12/2018 10:27 [...] + + | Richard, Joaquin Conversion - 09/18/2018 4:[address] [...] + | Negative chest. Signed by: Irina Oseguera Leslie Sign Date/Time: | | | 05/12/2018 10:11 AM [...] Negative chest. | | Signed by: Irina Oseguera Leslie | | Sign Date/Time: 05/12/2018 10:11 AM [...] performed at [facility] | | LAB | | | | [address];[place] | | | | | | [address] | | | | + + + [...]
--- OUTSIDE RECORDS SUMMARY | ~2019-09-09 | XMS | Encounter Summary ---
Demographics + + + | Address | [address] | | | [place] [address] | + + + | Home Phone [...] + | Sammi Kohler | ECON | [place] [address] | | + + + + + Care Team Providers + +------+ + | Care Stripper And Taper Name | Role | Phone | + +------+ + PCP | Unavailable | + +------+ + Encounter Details +--------+ + + + + | Date | Type | Department | Care Team | Description | +--------+ + + + + | 11/06/ | Emergency | [facility] | Gamal Leavitt MD | Chest pain | | 2014 | | [facility] | [address] | | | | | EMERGENCY CENTER | [place] [address] | | | | | [address] | [phone] | | | | | [place], [place] | | | | | | [address] | | | | | | [phone] | | | +--------+ + + + [...] ED Notes Conversion Transaction, Provider Unknown - 11/06/2013 8:06 PM PDTFormatting of this note m ight be different from the original. ED Notes by Onel Kenney RN at 11/06/132005 Author: Onel Kenney RN Service: (none) Author Type: Registered Nurse Filed: 11/06/132005 Date of Service: 11/06/132005 Status: Signed Impregnator Helper: Onel Kenney RN (Registered Nurse) Bed: RH3 Expected date: Expected time: Means of arrival: Comments: onver ivana Transaction, Provider Unknown - 11/06/2013 8:03 PM PDT ED Notes by Gilberto Plunkett RN at 11/06/132002 Author: Gilberto Plunkett RN Service: (none) Author Type: Registered Nurse Filed: 11/06/132002 Date of Service: 11/06/132002 Status: Signed Impregnator Helper: Gilberto Plunkett RN (Registered Nurse) Bed: RH1 Expected date: Expected time: Means of arrival: Comments: onver ivana Transaction, Provider Unknown - 11/06/2013 7:24 PM PDT ED Notes by Yanna Loera RN at 11/06/131923 Author: Yanna Loera RN Service: (none) Author Type: Registered Nurse Filed: 11/06/131923 Date of Service: 11/06/131923 Status: Signed Impregnator Helper: Yanna Loera RN (Registered Nurse) Pt resting in bed, respirations unlabored. Pt denies SOB/chest pain at this time. Diabeti c diet ordered. Pt updated on plan of care, call light within reach. Yanna Loera RN 11/06/131923 onver ivana Transaction, Provider Unknown - 11/06/2013 7:20 PM PDT ED Notes by Maribeth Lew RN at 11/06/131919 Author: Maribeth Lew RN Service: (none) Author Type: Registered Nurse Filed: 11/06/131919 Date of Service: 11/06/131919 Status: Signed Impregnator Helper: Maribeth Lew RN (Registered Nurse) Report given to Refugio Lew RN 11/06/131919 onver ivana Transaction, Provider Unknown - 11/06/2013 4:30 PM PDT ED Notes by Maribeth Lew RN at 11/06/131629 Author: Maribeth Lew RN Service: (none) Author Type: Registered Nurse Filed: 11/06/131647 Date of Service: 11/06/131629 Status: Signed Impregnator Helper: Maribeth Lew RN (Registered Nurse) Patient states he was on the way to his nurses station and began to have chest pain, he caryl cribes it as achy, he has had a dry cough as well for three days, denies LA in the past or s ob with this Maribeth Lew RN 11/06/131647 amal Leavitt MD - 11/06/2013 4:24 PM PDTFormatting of this note might be different from the origin al. ED Provider Notes by Gamal Leavitt MD at 11/06/131623 Author: Gamal Leavitt MD Service: (none) Author Type: Physician Filed: 11/06/132229 Date of Service: 11/06/131623 Status: Signed Impregnator Helper: Gamal Leavitt MD (Physician) [facility] Department of Emergency Medicine 4:24 PM History of Present Illness Patient Identification Kevyn Guzman is a 57 y.o. male. Patient information was obtained from patient. History/Exam limitations: none. Patient presented to the Emergency Department by: [facility] 1723 Chief Complaint Chief Complaint Patient presents with Chest Pain The patient presents to ED with complaints of chest pain. Onset of symptoms was 3:30pm, wit h a constant course since that time. The symptoms are described to be of moderate severity. Pt states that the onset of symptoms was while he was laying down and watching TV. The patie nt describes the quality and location of the symptoms as the following: middle of the chest and "feels like someone is sitting on his chest." Pt states that his pain has been intermitt ent for 1 month. Pt states that he has had some added stress lately. The patient also compla ins of SOB and nausea (onsets with this type of pain usually). Pt reports having a normal BM today. Patient denies leg swelling. Pt reports that he saw Dr. Sterling, customer service cashier, a month ago, who performed a cardiac cath, which was reportedly normal. PCP: JERRELL GUTIÉRREZ Past Medical History Diagnosis [...] - CHOLECYSTECTOMY; Surgeon: Jevon Vargas DO; Location: [facility] MAIN OR; Service: General; Laterality: N/A; Abdominal surgery Cholecystectomy Skin cancer excision 10/10/2012 Procedure: EXCISION - SKIN CANCER; Surgeon: Sy Fierro MD; Location: [facility] MAIN OR ; Service: Plastics; Laterality: Left; upper arm and upper back w/frozen section Esophagogastroduodenoscopy 03/03/2013 Procedure: ESOPHAGOGASTRODUODENOSCOPY; Surgeon: Howie Gibson MD; Location: [facility] ENDOSCOPY; S ervice: Gastroenterology; Laterality: N/A; Colonoscopy 03/04/2013 Procedure: COLONOSCOPY; Surgeon: Howie Gibson MD; Location: [facility] ENDOSCOPY; Service: Gastroe nterology; Laterality: N/A; Upper gastrointestinal endoscopy Skin biopsy Hernia repair 07/03/2013 Procedure: LAPAROSCOPIC - HERNIA - INCISIONAL; Surgeon: Jevon Vargas DO; Location: [facility] MAIN OR; Service: General; Laterality: [...] into the skin nightly. H istorical Provider dcolqyuun-bytmhcgo-shxizrzmi hydroxide-simethicone Take 40 mLs by mouth daily [...] Brother Review of Systems Constitutional: Positive for slightly increased stress Negative for fever, chills Eyes: Negative for vision changes Nose: Negative for congestion, nosebleeds Throat: Negative for sore throat CV/Resp: Positive for chest pain and SOB Negative for cough, leg swelling GI: Positive for nausea Negative for abdominal pain, vomiting, or diarrhea : Negative for urinary problems Musculoskeletal: Negative for back pain, joint pain Skin: Negative for rash Neuro/Psych: Negative for headache Endo/heme/Lymph: Negative for swollen lymph nodes, easy bruising All other systems reviewed and negative except as noted. Physical Exam BP 176/94 | Pulse 80 | Temp(Src) 97.8 F (36.6 C) | Resp 14 | Wt 110.224 kg (243 lb) | B LA 35.87 kg/m2 | SpO2 96% Vital signs interpretation: hypertensive, otherwise nl Pulse Oximetry interpretation: Normal General: Alert, in no apparent distress Eyes: Normal inspection, pupils equal and round, non-icteric ENT: Ears normal Nose normal Pharynx normal Neck: Normal inspection Supple Cardiovascular: Rate and rhythm normal No murmurs No lower extremity edema Respiratory: Breath sounds normal bilaterally No rales, wheezing or rhonchi Abdomen: Soft, non-tender, non-distended No guarding or rebound Back: Normal inspection Skin: Color normal Warm and dry No rash Neuro: Alert, no AMS No gross motor/sensory deficits Medical Decision Making and Emergency Department Course ED Department Course Patient presents to ED with complaints of chest pain. Exam is as listed above. My DDx inclu caryl, but is not limited to: CAD, ACS, AMI, anxiety, GERD, gastritis, vs others. Will order c ardiac panel, troponin, CXR and reevaluate the patient. Chart review reveals that pt has essentially clean cardiac cath within the last month by Dr Salty Sterling. Pt's chest pain felt to be non-cardiac at this point d/t pt's normal cath. Reviewed lab and imaging results. Unremarakble. 2 hour CKMB is steady/trending down. No evidence of ischemia on EKG or labs. Patient is ready for discharge given his negative workup today and recent negative cath.. I advised patient to follow up with a PCP and we discussed the emergent signs and symptoms th at would necessitate a return to ED. All questions and concerns addressed. Will discharge ho me. Records Reviewed Old medical records. Nursing notes. Previous ED visits for similar and unrelated complaints. Laboratory Evaluation Results Procedure Component Value Ref Range Date/Time POC cardiac troponin [[id number]] Collected: 11/06/131901 Order Status: Completed Updated: 11/06/13 191 POC CARDIAC TROPONIN 0.00 0.00 - 0.10 ng/mL CK MB [[id number]] Collected: 11/06/131899 Order Status: Sent Updated: 11/06/131904 Specimen Information: Blood Cardiac Panel [[id number]] (Abnormal) Collected: 11/06/13 1640 Order Status: Completed Updated: 11/06/13 1710 WBC 8.8 3.8 - 11.0 K/uL RBC 4.73 4.20 - 5.70 M/uL HGB 12.5 (L) 13.2 - 17.0 g/dL HCT 37.8 (L) 39.0 - 50.0 % MCV 79.9 (L) 80.0 - 100.0 fl MCH 26.4 (L) 27.0 - 34.0 pg MCHC 33.0 32.0 - 35.5 g/dL RDW SD 41.1 37 - 53 fl PLT 236 150 - 400 K/uL MPV 7.5 fl DIFF TYPE AUTOMATED NEUTROPHILS 58.8 % LYMPHOCYTES 26.7 % MONOCYTES 10.1 % EOSINOPHILS 3.6 % BASOPHILS 0.8 % NEUTROPHILS ABS 5.2 1.9 - 7.4 K/uL LYMPHOCYTES ABS 2.4 1.0 - 3.9 K/uL MONOCYTES ABS 0.9 (H) 0 - 0.8 K/uL EOSINOPHILS ABS 0.3 0 - 0.5 K/uL BASOPHILS ABS 0.1 0 - 0.1 K/uL SODIUM 142 135 - 143 mmol/L POTASSIUM 3.6 3.5 - 4.9 mmol/L CHLORIDE 108 99 - 109 mmol/L CO2 28 23 - 32 mmol/L ANION GAP AGAP 10 5 - 20 mmol/L GLUCOSE 158 (H) 65 - 99 mg/dL BUN 21 8 - 25 mg/dL CREATININE 1.11 0.70 - 1.30 mg/dL BUN/CREAT 19 CALCIUM 8.8 8.5 - 10.2 mg/dL TOTAL PROTEIN 6.6 6.3 - 8.2 g/dL Albumin 3.1 (L) 3.6 - 5.0 g/dL GLOBULIN 3.5 1.3 - 4.9 g/dL A/G 0.9 (L) 1.0 - 2.4 TBIL 0.3 0.1 - 1.5 mg/dL ALK PHOS 84 35 - 115 U/L AST 22 10 - 45 U/L ALT 25 10 - 65 U/L EGFR >60 >60 mL/min/1.73m2 CPK 119 55 - 400 U/L INR 1.0 APTT 24 23 - 32 seconds MMB 4.5 (H) 0.5 - 3.6 ng/mL CK-MB Index 3.8 POC cardiac troponin [[id number]] Collected: 11/06/13 1642 Order Status: Completed Updated: 11/06/13 1655 POC CARDIAC TROPONIN 0.00 0.00 - 0.10 ng/mL I personally reviewed the lab results and they have been posted to the chart. Pertinent po sitive and negative findings have been addressed appropriately. Radiology and EKG Evaluation Imaging Results XR Chest PA and Lateral (Final result) Result time: 11/06/13 17:18:19 Final result by Rad Results In Richard (11/06/13 17:18:19) Impression: 1. I suspect mild bibasilar atelectasis. 2. No infiltrates or effusions. 3. Heart size upper normal. Narrative: HISTORY: Chest pain. COMPARISON: 10/27/13. TECHNIQUE: AP and lateral upright films of the chest. FINDINGS: The heart size is upper normal, similar to previous studies. There is left retrocardiac min imal density. This may reflect subtle atelectasis. Additionally, there is minimal medial rig ht basilar density probably due to atelectasis as well. No effusions. Mild degenerative glass ges of the visualized spine. ED Diagnosis Final diagnosis Chest pain Disposition: ED Disposition Discharge Condition at discharge: Stable Follow-up Information Follow up With Details Comments Contact Info Jerrell Gutiérrez DO Call [phone] [facility] [address] [facility] Emergency Department If symptoms worsen 8 [facility] [id number] Procedures Additional Documentation Procedures Attending Note: Documentation assistance provided by Westley Wells and Renee Dela Cruz (Scribe). Information recorded by the scribe has been reviewed and validated by me. Troy laughlin with its contents. MD Gamal Maloney MD 11/06/132229 onversio n Transaction, Provider Unknown - 11/06/2013 4:03 PM PDTFormatting of this note might be di fferent from the original. ED Notes by Gilberto Plunkett RN at 11/06/131602 Author: Gilberto Plunkett RN Service: (none) Author Type: Registered Nurse Filed: 11/06/131602 Date of Service: 11/06/131602 Status: Signed Impregnator Helper: Gilberto Plunkett RN (Registered Nurse) Bed: 20 Expected date: Expected time: Means of arrival: Comments: 1723 docume nted in this encounter Plan of Treatment +--------+---------+ + + + | Date | Type | Specialty | Care Team | Description | +--------+---------+ + + + | 09/10/ | Office | Geriatric Medicine | Mireya Pack, | | | 2019 | Visit | | [employer] [address] | | | | | | [address] [place], | | | | | | [place] [address] | | | | | | [phone] | | | | | | | | +--------+---------+ + + + | 09/29/ | Office | Urology | Mireya Pack, | | | 2019 | Visit | | [employer] [address] | | | | | | [address] [place], | | | | | | [place] [address] | | | | | | [phone] | | | | | | | | | | | | Toy Wild, DO | | | | | | [address] | | | | | | [place] [address] | | | | | | [phone] | | | | | | | | +--------+---------+ + + + documented as of this encounter Procedures + +--------+ + + + | Procedure Name | Priori | Date/Time | Associated Diagnosis | Comments | | | ty | | | | + +--------+ + + + | CK-MB | Routin | 11/06/2013 | | Results for this | | | e | 7:00 PM | | procedure are in the | | | | PDT | | results section. | + +--------+ + + + | XR CHEST 2 VIEWS | Routin | 11/06/2013 | | Results for this | | | e | 5:11 PM | | procedure are in the | | | | PDT | | results section. | + +--------+ + + + | HISTORICAL LAB PANEL | Routin | 11/06/2013 | | Results for this | | RESULT | e | 4:40 PM | | procedure are in the | | | | PDT | | results section. | + +--------+ + + + | ECG 12 LEAD | Routin | 11/06/2013 | | Results for this | | | e | 4:10 PM | | procedure are in the | | | | PDT | | results section. | + +--------+ + + + documented in this encounter Results CK-MB (11/06/2013 7:00 PM PDT) + + + + + + | Component | Value | Ref Range | Performed | Pathologist | | | | | At | Signature | + + + + + + | CK-MB | 4.2 (H)Comment: Testing | 0.5 - 3.6 ng/mL | EXTERNAL | | | | performed at [facility];[address] | | LAB | | | | [address];[place] | | | | | | [address] | | | | + + + + + + | CK-MB Index | UNABLE TO | | EXTERNAL | | | | CALCULATEComment: | | LAB | | | | Testing performed at | | | | | | [facility];[address];[place] [address] | | | | + + + [...] +---------+ + + XR Chest 2 Vws (11/06/2013 5:11 PM PDT) + + | Specimen | + + | | + + + + + | Impressions | Performed At | + + + | 1. I suspect mild bibasilar atelectasis. 2. No infiltrates or | | | effusions. 3. Heart size upper normal. | | + + + + + + | Narrative | Performed At | + + + | HISTORY: Chest pain. COMPARISON: 10/27/13. TECHNIQUE: AP | | | and lateral upright films of the chest. FINDINGS: The heart size | | | is upper normal, similar to previous studies. There is left | | | retrocardiac minimal density. This may reflect subtle atelectasis. | | | Additionally, there is minimal medial right basilar density probably | | | due to atelectasis as well. No effusions. Mild degenerative changes | | | of the visualized spine. | | + + + + + | Procedure Note | + + | Joaquin Ramos Conversion - 09/21/2018 3:31 PM PDT HISTORY:Chest pain. COMPARISON:10/27/13. | | TECHNIQUE:AP and lateral upright films of the chest. FINDINGS:The heart size is upper | | normal, similar to previous studies. There is left retrocardiac minimal density. This | | may reflect subtle atelectasis. Additionally, there is minimal medial right basilar | | density probably due to atelectasis as well. No effusions. Mild degenerative changes of | | the visualized spine. IMPRESSION: 1. I suspect mild bibasilar atelectasis.2. No | | infiltrates or effusions.3. Heart size upper normal. | | | |FINDINGS: | |The heart size is upper normal, similar to previous studies. There is left retrocardiac min imal density. This may reflect subtle atelectasis. Additionally, there is minimal medial rig ht basilar density probably due | |to atelectasis as well. No effusions. | |Mild degenerative changes of the visualized spine. | | | |IMPRESSION: | |1. I suspect mild bibasilar atelectasis. | |2. No infiltrates or effusions. | |3. Heart size upper normal. | | | | | + + HISTORICAL LAB PANEL RESULT (11/06/2013 4:40 PM PDT) + + + + + -+ | Component | Value | Ref Range | Performed | Pathologist | | | | | At | Signature | + + + + + -+ | WBC | 8.8Comment: Testing | 3.8 - 11.0 K/uL | EXTERNAL | | | | performed at [facility];[address] | | LAB | | | | [address];[place], [place] | | | | | | [address] | | | | + + + + + -+ | Non- | 4.73Comment: Testing | 4.20 - 5.70 | EXTERNAL | | | Red Blood | performed at [facility];[address] | M/uL | LAB | | | Cells | [address];[place] | | | | | Counted | [id number] | | | | + + + + + -+ | Hemoglobin | 12.5 (L)Comment: Testing | 13.2 - 17.0 | EXTERNAL | | | | performed at [facility];[address] | g/dL | LAB | | | | [address];[place] | | | | | | [address] | | | | + + + + + -+ | Hematocrit, | 37.8 (L)Comment: Testing | 39.0 - 50.0 % | EXTERNAL | | | POC | performed at [facility];[address] | | LAB | | | | [address];[place] | | | | | | [address] | | | | + + + + + -+ | MCV | 79.9 (L)Comment: Testing | 80.0 - 100.0 fl | EXTERNAL | | | | performed at [facility];[address] | | LAB | | | | [address];[place] | | | | | | [address] | | | | + + + + + -+ | MCH | 26.4 (L)Comment: Testing | 27.0 - 34.0 pg | EXTERNAL | | | | performed at [facility];[address] | | LAB | | | | [address];[place] | | | | | | [address] | | | | + + + + + -+ | MCHC | 33.0Comment: Testing | 32.0 - 35.5 | EXTERNAL | | | | performed at [facility];[address] | g/dL | LAB | | | | [address];[place] | | | | | | [address] | | | | + + + + + -+ | RDW-CV | 41.1Comment: Testing | 37 - 53 fl | EXTERNAL | | | | performed at [facility];[address] | | LAB | | | | [address];[place] | | | | | | [address] | | | | + + + + + -+ | Platelet | 236Comment: Testing | 150 - 400 K/uL | EXTERNAL | | | Count | performed at [facility];[address] | | LAB | | | Plasma | [address];[place] | | | | | | [address] | | | | + + + + + -+ | MPV | 7.5Comment: Testing | fl | EXTERNAL | | | | performed at [facility];[address] | | LAB | | | | [address];[place] | | | | | | [address] | | | | + + + + + -+ | Differentia | AUTOMATEDComment: | | EXTERNAL | | | l Type | Testing performed at | | LAB | | | | [facility];[address];[place] [address] | | | | + + + + + -+ | % Segmented | 58.8Comment: Testing | % | EXTERNAL | | | | performed at [facility];[address] | | LAB | | | Neutrophils | [address];[place] | | | | | | [address] | | | | + + + + + -+ | % | 26.7Comment: Testing | % | EXTERNAL | | | Lymphocytes | performed at [facility];[address] | | LAB | | | | [address];[place] | | | | | | [address] | | | | + + + + + -+ | % Monocytes | 10.1Comment: Testing | % | EXTERNAL | | | | performed at [facility];[address] | | LAB | | | | [address];[place] | | | | | | [address] | | | | + + + + + -+ | % | 3.6Comment: Testing | % | EXTERNAL | | | Eosinophils | performed at [facility];[address] | | LAB | | | | [address];[place] | | | | | | [address] | | | | + + + + + -+ | % Basophils | 0.8Comment: Testing | % | EXTERNAL | | | | performed at [facility];[address] | | LAB | | | | [address];[place] | | | | | | [address] | | | | + + + + + -+ | Absolute | 5.2Comment: Testing | 1.9 - 7.4 K/uL | EXTERNAL | | | Segmented | performed at [facility];[address] | | LAB | | | Neutrophils | [address];[place] | | | | | | [address] | | | | + + + + + -+ | Absolute | 2.4Comment: Testing | 1.0 - 3.9 K/uL | EXTERNAL | | | Lymphocytes | performed at [facility];[address] | | LAB | | | | [address];[place] | | | | | | [address] | | | | + + + + + -+ | Absolute | 0.9 (H)Comment: Testing | 0 - 0.8 K/uL | EXTERNAL | | | Monocytes | performed at [facility];[address] | | LAB | | | | [address];[place] | | | | | | [address] | | | | + + + + + -+ | Absolute | 0.3Comment: Testing | 0 - 0.5 K/uL | EXTERNAL | | | Eosinophils | performed at [facility];[address] | | LAB | | | | [address];[place] | | | | | | [address] | | | | + + + + + -+ | Absolute | 0.1Comment: Testing | 0 - 0.1 K/uL | EXTERNAL | | | Basophils | performed at [facility];[address] | | LAB | | | | [address];[place] | | | | | | [address] | | | | + + + + + -+ | Na | 142Comment: Testing | 135 - 143 | EXTERNAL | | | | performed at [facility];[address] | mmol/L | LAB | | | | [address];[place] | | | | | | [address] | | | | + + + + + -+ | K | 3.6Comment: Testing | 3.5 - 4.9 | EXTERNAL | | | | performed at [facility];[address] | mmol/L | LAB | | | | [address];[place] | | | | | | [address] | | | | + + + + + -+ | Cl | 108Comment: Testing | 99 - 109 mmol/L | EXTERNAL | | | | performed at [facility];[address] | | LAB | | | | [address];[place] | | | | | | [address] | | | | + + + + + -+ | CO2 | 28Comment: Testing | 23 - 32 mmol/L | EXTERNAL | | | | performed at [facility];[address] | | LAB | | | | [address];[place] | | | | | | [address] | | | | + + + + + -+ | Anion Gap | 10Comment: Testing | 5 - 20 mmol/L | EXTERNAL | | | | performed at [facility];[address] | | LAB | | | | [address];[place] | | | | | | [address] | | | | + + + + + -+ | Glucose, | 158 (H)Comment: Testing | 65 - 99 mg/dL | EXTERNAL | | | Fasting | performed at [facility];[address] | | LAB | | | | [address];[place] | | | | | | [address] | | | | + + + + + -+ | BUN | 21Comment: Testing | 8 - 25 mg/dL | EXTERNAL | | | | performed at [facility];[address] | | LAB | | | | [address];[place] | | | | | | [address] | | | | + + + + + -+ | Creatinine | 1.11Comment: Testing | 0.70 - 1.30 | EXTERNAL | | | | performed at [facility];[address] | mg/dL | LAB | | | | [address];[place] | | | | | | [address] | | | | + + + + + -+ | BUN/Creatin | 19Comment: Testing | | EXTERNAL | | | ine Ratio | performed at [facility];[address] | | LAB | | | | [address];[place] | | | | | | [address] | | | | + + + + + -+ | Calcium | 8.8Comment: Testing | 8.5 - 10.2 | EXTERNAL | | | | performed at [facility];[address] | mg/dL | LAB | | | | [address];[place] | | | | | | [address] | | | | + + + + + -+ | Protein, | 6.6Comment: Testing | 6.3 - 8.2 g/dL | EXTERNAL | | | Total | performed at [facility];[address] | | LAB | | | | [address];[place] | | | | | | [address] | | | | + + + + + -+ | Albumin | 3.1 (L)Comment: Testing | 3.6 - 5.0 g/dL | EXTERNAL | | | | performed at [facility];[address] | | LAB | | | | [address];[place] | | | | | | [address] | | | | + + + + + -+ | Globulin | 3.5Comment: Testing | 1.3 - 4.9 g/dL | EXTERNAL | | | | performed at [facility];[address] | | LAB | | | | [address];[place] | | | | | | [address] | | | | + + + + + -+ | A/G Ratio | 0.9 (L)Comment: Testing | 1.0 - 2.4 | EXTERNAL | | | | performed at [facility];[address] | | LAB | | | | [address];[place] | | | | | | [address] | | | | + + + + + -+ | Bilirubin | 0.3Comment: Testing | 0.1 - 1.5 mg/dL | EXTERNAL | | | Total | performed at [facility];[address] | | LAB | | | | [address];[place] | | | | | | [address] | | | | + + + + + -+ | ALP, | 84Comment: Testing | 35 - 115 U/L | EXTERNAL | | | External | performed at [facility];[address] | | LAB | | | | [address];[place] | | | | | | [address] | | | | + + + + + -+ | AST | 22Comment: Testing | 10 - 45 U/L | EXTERNAL | | | | performed at [facility];[address] | | LAB | | | | [address];[place] | | | | | | [address] | | | | + + + + + -+ | ALT | 25Comment: Testing | 10 - 65 U/L | EXTERNAL | | | | performed at [facility];[address] | | LAB | | | | [address];[place] | | | | | | [address] | | | | + + + [...] | | | | | | at [facility];[address] | | | | | | [place] [id number] | | | | + + + + + -+ | CK, Total | 119Comment: Testing | 55 - 400 U/L | EXTERNAL | | | | performed at [facility] [place] [facility];[address] | | LAB | | | | [address];[place] | | | | | | [id number] | | | | + + + [...] [place] | | | | | | [address] | | | | + + + + + -+ | aPTT, | 24Comment: Testing | 23 - 32 seconds | EXTERNAL | | | Patient | performed at [facility] [place];[address] | | LAB | | | | [address];[place] | | | | | | [address] | | | | + + + + + -+ | CK-MB | 4.5 (H)Comment: Testing | 0.5 - 3.6 ng/mL | EXTERNAL | | | | performed at [facility] [place];[address] | | LAB | | | | [address];[place] | | | | | | [address] | | | | + + + + + -+ | CK-MB Index | 3.8Comment: CK INDEX | | EXTERNAL | | [...] + +---------+ + + ECG 12 lead (11/06/2013 4:10 PM PDT) + + + + + + | Component | Value | Ref Range | Performed | Pathologist | | | | | At | Signature | + + + + + + | DIAGNOSIS: | Normal sinus rhythm with | | EXTERNAL | | | | sinus arrhythmiaNormal | | LAB | | | | ECGWhen compared with | | | | | | ECG of 13-OCT-2013 | | | | | | 12:53,No significant | | | | | | [...] | | | | | (25) on 11/07/2013 | | | | | | 1:28:50 AM | | | | + + + + + + + + | Specimen | + + | | + + + + + | Narrative | Performed At | + + + | Historically converted procedure from [facility] | EXTERNAL LAB | + + [...]
--- OUTSIDE RECORDS SUMMARY | ~2019-09-09 | XMS | Encounter Summary ---
Demographics + + + | Address | [address] [facility] | | | [place] [address] | + + + | Home Phone [...] + | Sammi Kohler | ECON | [place] [address] | | + + + + + Care Team Providers + +------+ + | Care Instructional Coach Name | Role | Phone | + +------+ + PCP | Unavailable | + +------+ + Encounter Details +--------+ + + + + | Date | Type | Department | Care Team | Description | +--------+ + + + + | 12/21/ | Emergency | [facility] | Jose Flor, | Mild concussion, | | 2015 | | MEDICAL CENTER | [address] | without loss of | | | | EMERGENCY CENTER | [place] [address] | consciousness, | | | | [address] | [phone] | initial encounter; | | | | [place], [place] | | Transient confusion | | | | [address] | | | | | | [phone] | | | +--------+ + + + [...] Progress Notes Conversion Transaction, Provider Unknown - 12/21/2014 10:21 PM PSTFormatting of this note m ight be different from the original. Case Management by QUINN Tyson at 12/21/142220 Author: QUINN Tyson Service: (none) Author Type: Hospitality Specialist Filed: 12/21/142221 Date of Service: 12/21/142220 Status: Signed Railroad Hand: QUINN Tyson (Hospitality Specialist) [place]TON nj rec'd, 39 ED visits < 12 months. Patient d/c before CM could visit patient. Charly maddox CCP is as follows: [place] ALERT 12/21/2014 08:19 AM NONA KIM ( ) This patient has registered at the [facility] Emergency Department. Care Providers Provider Type Phone Fax Service Dates CITLALY Funez at [facility] Primary Care 11/21/2011 - Current LOBO TREVIZO Primary Care Current Dr. Thomas Urrutia. DO at [facility] Current ED Care Guidelines from [facility] Last Updated: MonAug 28 15:31:57 MDT 2014 Care Recommendation: The following guidelines were formulated by the ED Care Guidelines Committee of the [facility] Consistent Care Program on April 28, 2011.These are only guidelines and the physician mikey andrade exercise clinical judgment when deciding to follow them. A review on the care plan done on 08/02/2013. Patient's pcp is [facility] in [place]. The ED provider is encourage d to log into the [employer] for prescribing history. No controlled substances should be administered in the ED or prescribed from the ED for sub jective pain. Medical / Social Issues Patient has had a total of (1) abdominal CT scan in the year preceding April 28, 2011 witho ut anysignificant findings. Patient was offered a free visit at [facility] to establish care with a PCP Educate patient regarding the proper use of the Emergency Room.Redirect patient to him/her PCP for care that does not require the use of the Emergency Department. This patient is case managed by the [facility] Consistent Care Program. Please contact the photographer assistant at your hospital for any immediate or post ED discharge needs this patient m ay have. Additional Information: This patient is case managed by the [facility] Consistent Care Program. Please contact the photographer assistant at your hospital for any immediate or post ED discharge needs this patient may have. You may also contact for additional information. These are guidelines and the provider should exercise clinical judgment when providing care . [place] PDMP Report PDMP connection disabled for maintenance. Visit Date Location Type Diagnoses or Chief Complaint 12/21/2014 [facility] Emergency E.D. Visit Count (1 Yr.) Visits [facility] 1 Total 1 Note: Visits indicate total known visits. The above information is provided for the sole purpose of patient treatment. Use of this in formation beyond the terms of Data Sharing Memorandum of Understanding and License Agreement is prohibited. In certain cases not all visits may be represented. Consult the [facility] ed facilities for additional information. MonDec 21 09:19:53 MST 2014 [employer] - [place], [place] - [email or web address] docume nted in this encounter ED Notes Conversion Transaction, Provider Unknown - 12/21/2014 7:40 AM PSTFormatting of this note m ight be different from the original. ED Notes by Marques Murphy RN at 12/21/14739 Author: Marques Murphy RN Service: (none) Author Type: Registered Nurse Filed: 12/21/14745 Date of Service: 12/21/14739 Status: Signed Railroad Hand: Marques Murphy RN (Registered Nurse) Pt states, "I woke up this morning and I couldn't rememeber who I was or where I was. I'm a t Kadle now but this morning I didn't know." Marques Murphy RN 12/21/14745 Jose Rios MD - 12/21/2014 7:34 AM PSTFormatting of this note might be different from the o riginal. ED Provider Notes by Jose Flor MD at 12/21/14733 Author: Jose Flor MD Service: (none) Author Type: Physician Filed: 12/21/1457 Date of Service: 12/21/14733 Status: Signed Railroad Hand: Jose Flor MD (Physician) [facility] Department of Emergency Medicine No flowsheet data found. History of Present Illness Patient Identification Kevyn Guzman is a 59 y.o. male. Patient information was obtained from patient and friend. History/Exam limitations: none. Patient presented to the Emergency Department by: Car Chief Complaint Chief Complaint Patient presents with Altered Mental Status Patient was seen last night for a head injury and humza above right eye. Last night be came confused "I did not know who I was" Nauseated. The patient complains of altered mental status, confusion. Onset of symptoms was last night , with a resolving course since that time. The symptoms are described to be of moderate sev erity. The patient describes the quality and location of the symptoms as the following: santiago kinsey was here last night after a seizure, fall, and head injury, had Ct of head done and sut ures to forehead. Discharged home. But last night he says he wokup up in the middle of the night and "didnt know where I was", also "didnt know who I was", woke up roommate, roommat e brought him to ED for evaluation. The patient also complains of nausea. Care prior to arr ival consisted of evaluation in ED yesterday. PCP: JERRELL GUTIÉRREZ Past Medical History Diagnosis Date Diabetes mellitus type II Atrial fibrillation (HCC) Hypertension Hyperlipidemia Anxiety Depression Renal failure ARF (acute renal failure) ([facility]) 03/02/2013 COPD (chronic obstructive pulmonary disease) ([facility]) 03/02/2013 hypoxemia on 2 lts nc Development [...] - CHOLECYSTECTOMY; Surgeon: Jevon Vargas DO; Location: [facility] MAIN OR; Service: General; Laterality: N/A; Abdominal surgery Cholecystectomy Skin cancer excision 10/10/2012 Procedure: EXCISION - SKIN CANCER; Surgeon: Sy Fierro MD; Location: [facility] MAIN OR ; Service: Plastics; Laterality: Left; upper arm and upper back w/frozen section Esophagogastroduodenoscopy 03/03/2013 Procedure: ESOPHAGOGASTRODUODENOSCOPY; Surgeon: Howie Gibson MD; Location: [facility] ENDOSCOPY; S ervice: Gastroenterology; Laterality: N/A; Colonoscopy 03/04/2013 Procedure: COLONOSCOPY; Surgeon: Howie Gibson MD; Location: [facility] ENDOSCOPY; Service: Gastroe nterology; Laterality: N/A; Upper gastrointestinal endoscopy Skin biopsy Hernia repair 07/03/2013 Procedure: LAPAROSCOPIC - HERNIA - INCISIONAL; Surgeon: Jevon Vargas DO; Location: [facility] MAIN OR; Service: General; Laterality: N/A; Skin lesion excision Left 05/05/2014 Procedure: EXCISION - LESION - FROZEN SECTION; Surgeon: Sy Fierro MD; Location: [facility] MAIN OR; Service: Plastics; Laterality: Left; forearm Prior to Admission medications Medication Sig Start Date End Date Taking? Authorizing Provider Albuterol Sulfate (VENTOLIN HFA IN) Inhale 2 puffs into the lungs as needed. 108 mcg/act Historical Provider Ryzas-Z-Kznzhnyunyqsb (BEANO) TABS Take 150 Units by mouth [...] 100 mg by mouth nightly. Historical Provider mrozjqjhb-ilumruef-zmgeoysow hydroxide-simethicone Take 40 mLs by mouth daily [...] Lives alone x 1 wk, moved from [facility], , 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 2 falls [...] breath, cough Gastrointestinal: Negative for: abdominal pain, diarrhea, black or bloody stools Genitourinary: Negative for: dysuria, hematuria, urinary problems Musculoskeletal: Negative for: myalgias and arthralgias Skin: Negative for: laceration or lesion Neuro and psych: Negative for: fainting, head injury, seizure, trouble walking Endocrine/Heme/Lymph: Negative for: swollen lymph nodes, easy bruising All systems reviewed and otherwise negative Physical Exam Wt 102.7 kg (226 lb 6.6 oz) BP 186/86 mmHg | Pulse 74 | Temp(Src) 98 F (36.7 C) (Oral) | Resp 16 | Wt 102.7 kg (226 lb 6.6 oz) | SpO2 98% Vital signs reviewed and hypertensive Pulse Oximetry interpretation: Normal General: Alert, in no apparent distress Head: Sutured laceration right forehead, no cellulitis, no swelling Eyes: Normal inspection, pupils equal and round, [...] Neuro: No motor deficit No sensory deficit No confusion, oriented Medical Decision Making and Emergency Department Course Altered Mental Status This patient presents with altered mental status. The list of possible emergent diagnoses that the patient requires an evaluation for includes (but is not limited to) intracranial bl eeding, acute stroke, anemia, dehydration, urinary infection, pneumonia, renal failure, elec trolyte changes, acute myocardial ischemia, arrhythmia, congestive heart failure, pericardit is, and metabolic abnormality. I feel that laboratory testing and further diagnostic testi ng is necessary to ensure that there is no acute emergent cause of the symptoms. ED Department Course Labs and repeat head CT benign, no hemorrhage on CT. Transient confusion likely related to mild concussion syndrome. The patient will follow up with their doctor for further outpati ent treatment as indicated. Agrees to return to the ED if symptoms worsen or if any other c oncerns. Records Reviewed Old medical records. Laboratory Evaluation Labs Reviewed CBC W/AUTO DIFF (REFLEX TO MANUAL) - Abnormal; Notable for the following: HGB 12.0 (*) HCT 36.7 (*) MCV 75.1 (*) MCH 24.5 (*) MONOCYTES ABS 0.82 (*) EOSINOPHILS ABS 0.70 (*) All other components within normal limits COMPREHENSIVE METABOLIC PANEL - Abnormal; Notable for the following: GLUCOSE 178 (*) CALCIUM 8.1 (*) Albumin 2.9 (*) A/G 0.8 (*) All other components within normal limits PROTIME-INR Results Procedure Component Value Units Date/Time Comprehensive metabolic panel [[id number]] (Abnormal) Collected: 12/21/14804 Specimen Information: Blood Updated: 12/21/14837 SODIUM 140 mmol/L POTASSIUM 3.6 mmol/L CHLORIDE 107 mmol/L CO2 28 mmol/L ANION GAP AGAP 9 mmol/L GLUCOSE 178 (H) mg/dL BUN 12 mg/dL CREATININE 0.78 mg/dL BUN/CREAT 16 CALCIUM 8.1 (L) mg/dL TOTAL PROTEIN 6.6 g/dL Albumin 2.9 (L) g/dL GLOBULIN 3.7 g/dL A/G 0.8 (L) TBIL 0.5 mg/dL ALK PHOS 110 U/L AST 17 U/L ALT 20 U/L EGFR >60 mL/min/1.73m2 CBC with differential [[id number]] (Abnormal) Collected: 12/21/14804 Specimen Information: Blood Updated: 12/21/14832 WBC 8.38 K/uL RBC 4.89 M/uL HGB 12.0 (L) g/dL HCT 36.7 (L) % MCV 75.1 (L) fl MCH 24.5 (L) pg MCHC 32.6 g/dL RDW SD 42.4 fl PLT 234 K/uL MPV 7.4 fl DIFF TYPE AUTOMATED NEUTROPHILS 54.18 % LYMPHOCYTES 27.07 % MONOCYTES 9.72 % EOSINOPHILS 8.36 % BASOPHILS 0.67 % NEUTROPHILS ABS 4.54 K/uL LYMPHOCYTES ABS 2.27 K/uL MONOCYTES ABS 0.82 (H) K/uL EOSINOPHILS ABS 0.70 (H) K/uL BASOPHILS ABS 0.06 K/uL MORPHOLOGY 1+ Platelet Estimate ADEQUATE Diff Comment Result: SLIDE SCANNED, AGREES WITH AUTOMATED RESULTS. Protime [[id number]] Collected: 12/21/14804 Specimen Information: Blood Updated: 12/21/14830 INR 1.0 Available Labs reviewed and interpreted by me. Radiology Evaluation Imaging Results CT Head Non-Contrast (Final result) Result time: 12/21/14 08:03:00 Preliminary result by Rad Results In Richard (12/21/14 08:03:00) Impression: 1. Increased prominence of right frontal scalp hematoma. No skull fracture. 2. No intracranial hemorrhage. Normal appearance of brain parenchyma. 3. No acute abnormality otherwise seen. Exam otherwise as above. RADIA Read by Jose Brown MD on Dec 21 2014 8:03AM Final result by Rad Results In Richard (12/21/14 08:02:56) Impression: 1. Increased prominence of right frontal scalp hematoma. No skull fracture. 2. No intracranial hemorrhage. Normal appearance of brain parenchyma. 3. No acute abnormality otherwise seen. Exam otherwise as above. RADIA Electronically signed by Jose Brown MD on Dec 21 2014 8:02AM Referring Provider Line : [phone] ID: [id number] Narrative: EXAM: CT HEAD EXAM DATE: 12/21/2014 07:48 AM. CLINICAL HISTORY: Head injury. Altered mental status. COMPARISON: 12/20/2014. TECHNIQUE: Multiaxial CT images were obtained from [...] evidence of fracture or calvarial defect. Other: Right frontal scalp hematoma . Globes and orbits unremarkable. Available radiology studies reviewed and interpreted contemporaneously by me. ED Diagnoses Final diagnoses Mild concussion, without loss of consciousness, initial encounter Transient confusion Disposition: ED Disposition Discharge Condition at discharge: Stable Follow-up Information Follow up With Details Comments Contact Info Jerrell Gutiérrez, [address] [facility] [id number] Discharge Medications: Discharge Medication List as of 12/21/2014 8:44 AM START taking these medications Details acetaminophen (TYLENOL) 500 MG tablet Take 2 tablets by mouth every 6 (six) hours as needed for Pain or Fever. Do not take more than 8 in a 24 hour period, Starting 12/21/2014, Until 12/31/14, Print Procedures Additional Documentation Procedures Jose Flor MD 12/21/14 0957 documented in this e ncounter Plan of Treatment +--------+---------+ + + + | Date | Type | Specialty | Care Team | Description | +--------+---------+ + + + | 09/10/ | Office | Geriatric Medicine | Mireya Pack, | | | 2019 | Visit | | EXCEPTIONAL CHILDREN TEACHER ASSISTANT [address] | | | | | | [address] [place], | | | | | | [place] [address] | | | | | | [phone] | | | | | | | | +--------+---------+ + + + | 09/29/ | Office | Urology | Mireya Pack, | | | 2020 | Visit | | EXCEPTIONAL CHILDREN TEACHER ASSISTANT [address] | | | | | | [address] [place], | | | | | | [place] [address] | | | | | | [phone] | | | | | | | | | | | | Toy Wild, DO | | | | | | [address] | | | | | | [place] [address] | | | | | | [phone] | | | | | | | | +--------+---------+ + + + documented as of this encounter Procedures + +--------+ + + + | Procedure Name | Priori | Date/Time | Associated Diagnosis | Comments | | | ty | | | | + +--------+ + + + | EXTERNAL LAB: CBC | Routin | 12/21/2014 | | Results for this | | | e | 8:05 AM | | procedure are in the | | | | PST | | results section. | + +--------+ + + + | PROTIME INR | Routin | 12/21/2014 | | Results for this | | | e | 8:05 AM | | procedure are in the | | | | PST | | results section. | + +--------+ + + + | COMPREHENSIVE | Routin | 12/21/2014 | | Results for this | | METABOLIC PANEL | e | 8:05 AM | | procedure are in the | | | | PST | | results section. | + +--------+ + + + | CT HEAD WO CONTRAST | Routin | 12/21/2014 | | Results for this | | | e | 7:48 AM | | procedure are in the | | | | PST | | results section. | + +--------+ + + + documented in this encounter Results Protime INR (12/21/2014 8:05 AM PST) + + + + + [...] | | performed at [facility] | | | | | | [facility];[place], [place] | | | | | | [address] | | | | + + + [...] + +---------+ + + External Lab: CBC (12/21/2014 8:05 AM PST) + + + + + + | Component | Value | Ref Range | Performed | Pathologist | | | | | At | Signature | + + + + + + | WBC | 8.38Comment: Testing | 3.80 - 11.00 | EXTERNAL | | | | performed at [facility];[address] | K/uL | LAB | | | | [address];[place] | | | | | | [address] | | | | + + + + + + | Non- | 4.89Comment: Testing | 4.20 - 5.70 | EXTERNAL | | | Red Blood | performed at [facility];[address] | M/uL | LAB | | | Cells | [address];[place] | | | | | Counted | [id number] | | | | + + + + + + | Hemoglobin | 12.0 (L)Comment: Testing | 13.2 - 17.0 | EXTERNAL | | | | performed at [facility];[address] | g/dL | LAB | | | | [address];[place] | | | | | | [address] | | | | + + + + + + | Hematocrit, | 36.7 (L)Comment: Testing | 39.0 - 50.0 % | EXTERNAL | | | POC | performed at [facility];[address] | | LAB | | | | [address];[place] | | | | | | [address] | | | | + + + + + + | MCV | 75.1 (L)Comment: Testing | 80.0 - 100.0 fl | EXTERNAL | | | | performed at [facility];[address] | | LAB | | | | [address];[place] | | | | | | [address] | | | | + + + + + + | MCH | 24.5 (L)Comment: Testing | 27.0 - 34.0 pg | EXTERNAL | | | | performed at [facility];[address] | | LAB | | | | [address];[place] | | | | | | [address] | | | | + + + + + + | MCHC | 32.6Comment: Testing | 32.0 - 35.5 | EXTERNAL | | | | performed at [facility];[address] | g/dL | LAB | | | | [address];[place] | | | | | | [address] | | | | + + + + + + | RDW-CV | 42.4Comment: Testing | 37 - 53 fl | EXTERNAL | | | | performed at [facility];[address] | | LAB | | | | [address];[place] | | | | | | [address] | | | | + + + + + + | Platelet | 234Comment: Testing | 150 - 400 K/uL | EXTERNAL | | | Count | performed at [facility];[address] | | LAB | | | Plasma | [address];[place] | | | | | | [address] | | | | + + + + + + | MPV | 7.4Comment: Testing | fl | EXTERNAL | | | | performed at [facility];[address] | | LAB | | | | [address];[place] | | | | | | [address] | | | | + + + + + + | Differentia | AUTOMATEDComment: | | EXTERNAL | | | l Type | Testing performed at | | LAB | | | | [facility];[address];[place] [address] | | | | + + + + + + | % Segmented | 54.18Comment: Testing | % | EXTERNAL | | | | performed at [facility];[address] | | LAB | | | Neutrophils | [address];[place] | | | | | | [address] | | | | + + + + + + | % | 27.07Comment: Testing | % | EXTERNAL | | | Lymphocytes | performed at [facility];[address] | | LAB | | | | [address];[place] | | | | | | [address] | | | | + + + + + + | % Monocytes | 9.72Comment: Testing | % | EXTERNAL | | | | performed at [facility];[address] | | LAB | | | | [address];[place] | | | | | | [address] | | | | + + + + + + | % | 8.36Comment: Testing | % | EXTERNAL | | | Eosinophils | performed at [facility];[address] | | LAB | | | | [address];[place] | | | | | | [address] | | | | + + + + + + | % Basophils | 0.67Comment: Testing | % | EXTERNAL | | | | performed at [facility];[address] | | LAB | | | | [address];[place] | | | | | | [address] | | | | + + + + + + | Absolute | 4.54Comment: Testing | 1.90 - 7.40 | EXTERNAL | | | Segmented | performed at [facility];[address] | K/uL | LAB | | | Neutrophils | [address];[place] | | | | | | [address] | | | | + + + + + + | Absolute | 2.27Comment: Testing | 1.00 - 3.90 | EXTERNAL | | | Lymphocytes | performed at [facility];[address] | K/uL | LAB | | | | [address];[place] | | | | | | [address] | | | | + + + + + + | Absolute | 0.82 (H)Comment: Testing | 0.00 - 0.80 | EXTERNAL | | | Monocytes | performed at [facility];[address] | K/uL | LAB | | | | [address];[place] | | | | | | [address] | | | | + + + + + + | Absolute | 0.70 (H)Comment: Testing | 0.00 - 0.50 | EXTERNAL | | | Eosinophils | performed at [facility];[address] | K/uL | LAB | | | | [address];[place] | | | | | | [address] | | | | + + + + + + | Absolute | 0.06Comment: Testing | 0.00 - 0.10 | EXTERNAL | | | Basophils | performed at [facility] | K/uL | LAB | | | | [address];[place] | | | | | | [address] | | | | + + + + + + | RBC | 1+Comment: | | EXTERNAL | | | Morphology | HYPO1+MICRONORMAL PLT | | LAB | | | | MORPHTesting performed | | | | | | at [facility];[address];[place] [address] | | | | | |NORMAL PLT MORPH | | | | | |Testing performed at [facility];[address] [place] [address];[place] [address] | | | | | | | | | | + + + + + + | Platelet | ADEQUATEComment: Testing | | EXTERNAL | | | Estimate | performed at [facility];[address] | | LAB | | | | [address];[place] | | | | | | [address] | | | | + + + + + + | Differentia | SLIDE SCANNED, AGREES | | EXTERNAL | | | l Comments | WITH AUTOMATED | | LAB | | | | RESULTS.Comment: Testing | | | | | | performed at [facility];[address] | | | | | | [address];[place] | | | | | | [address] | | | | + + + [...] + +---------+ + + Comprehensive Metabolic Panel (12/21/2014 8:05 AM PST) + + + + + + | Component | Value | Ref Range | Performed | Pathologist | | | | | At | Signature | + + + + + + | Na | 140Comment: Testing | 135 - 143 | EXTERNAL | | | | performed at [facility];[address] | mmol/L | LAB | | | | [address];[place] | | | | | | [address] | | | | + + + + + + | K | 3.6Comment: Testing | 3.5 - 4.9 | EXTERNAL | | | | performed at [facility];[address] | mmol/L | LAB | | | | [address];[place] | | | | | | [address] | | | | + + + + + + | Cl | 107Comment: Testing | 99 - 109 mmol/L | EXTERNAL | | | | performed at [facility];[address] | | LAB | | | | [address];[place] | | | | | | [address] | | | | + + + + + + | CO2 | 28Comment: Testing | 23 - 32 mmol/L | EXTERNAL | | | | performed at [facility];[address] | | LAB | | | | [address];[place] | | | | | | [address] | | | | + + + + + + | Anion Gap | 9Comment: Testing | 5 - 20 mmol/L | EXTERNAL | | | | performed at [facility];[address] | | LAB | | | | [address];[place] | | | | | | [address] | | | | + + + + + + | Glucose, | 178 (H)Comment: Testing | 65 - 99 mg/dL | EXTERNAL | | | Fasting | performed at [facility];[address] | | LAB | | | | [address];[place] | | | | | | [address] | | | | + + + + + + | BUN | 12Comment: Testing | 8 - 25 mg/dL | EXTERNAL | | | | performed at [facility];[address] | | LAB | | | | [address];[place] | | | | | | [address] | | | | + + + + + + | Creatinine | 0.78Comment: Testing | 0.70 - 1.30 | EXTERNAL | | | | performed at [facility];[address] | mg/dL | LAB | | | | [address];[place] | | | | | | [address] | | | | + + + + + + | BUN/Creatin | 16Comment: Testing | | EXTERNAL | | | ine Ratio | performed at [facility];[address] | | LAB | | | | [address];[place] | | | | | | [address] | | | | + + + + + + | Calcium | 8.1 (L)Comment: Testing | 8.5 - 10.5 | EXTERNAL | | | | performed at [facility];[address] | mg/dL | LAB | | | | [address];[place] | | | | | | [address] | | | | + + + + + + | Protein, | 6.6Comment: Testing | 6.3 - 8.2 g/dL | EXTERNAL | | | Total | performed at [facility];[address] | | LAB | | | | [address];[place] | | | | | | [address] | | | | + + + + + + | Albumin | 2.9 (L)Comment: Testing | 3.3 - 4.8 g/dL | EXTERNAL | | | | performed at [facility];[address] | | LAB | | | | [address];[place] | | | | | | [address] | | | | + + + + + + | Globulin | 3.7Comment: Testing | 1.3 - 4.9 g/dL | EXTERNAL | | | | performed at [facility];[address] | | LAB | | | | [address];[place] | | | | | | [address] | | | | + + + + + + | A/G Ratio | 0.8 (L)Comment: Testing | 1.0 - 2.4 | EXTERNAL | | | | performed at [facility];[address] | | LAB | | | | [address];[place] | | | | | | [address] | | | | + + + + + + | Bilirubin | 0.5Comment: Testing | 0.1 - 1.5 mg/dL | EXTERNAL | | | Total | performed at [facility] | | [place] | | | | [address];[place] | | | | | | [address] | | | | + + + + + + | ALP, | 110Comment: Testing | 35 - 115 U/L | EXTERNAL | | | External | performed at [facility] | | [place] | | | | [address];[place] | | | | | | [address] | | | | + + + + + + | AST | 17Comment: Testing | 10 - 45 U/L | EXTERNAL | | | | performed at [facility] | | [place] | | | | [address];[place] | | | | | | [phone] | | | | + + + + + + | ALT | 20Comment: Testing | 10 - 65 U/L | EXTERNAL | | | | performed at [facility] | | LAB | | | | [address];[place] | | | | | | [address] | | | | + + + [...] | | | at [facility];[place] [address] | | | | + + + [...] +---------+ + + CT Head wo Contrast (12/21/2014 7:48 AM PST) + + | Specimen | + + | | + + + + + | Impressions | Performed At | + + + | 1. Increased prominence of right frontal scalp hematoma. No skull | | | fracture. 2. No intracranial hemorrhage. Normal appearance of brain | | | parenchyma. 3. No acute abnormality otherwise seen. Exam otherwise as | | | above. [facility] Electronically signed by Jose Brown MD on | | | Dec 21 2014 8:02AM Referring Provider Line: [phone] ID: [id number] | | + + + + + + | Narrative | Performed At | + + + | EXAM: CT HEAD EXAM DATE: 12/21/2014 07:48 AM. CLINICAL | | | HISTORY: Head injury. Altered mental status. COMPARISON: | | | 12/20/2014. TECHNIQUE: Multiaxial CT images were obtained from the | | | foramen magnum to the vertex. IV contrast: None. Reformats: Coronal. | | | FINDINGS: Parenchyma: No intraparenchymal hemorrhage. No evidence | | | of mass, midline shift or CT findings of infarction. Morrissey-white | | | differentiation is distinct. Extraaxial Spaces: Normal for age. No | | | subdural or epidural collections identified. Ventricles: Normal | | | in size and position. Sinuses: Imaged paranasal sinuses, orbits, | | | and mastoids show no significant abnormality. Bones: No evidence | | | of fracture or calvarial defect. Other: Right frontal scalp | | | hematoma . Globes and orbits unremarkable. | | + + + + + | Procedure Note | + + | Richard, Rad Conversion - 09/20/2018 10:29 PM PDT EXAM:CT HEAD EXAM DATE: 12/21/2014 | | 07:48 AM. CLINICAL HISTORY: Head injury. Altered mental status. COMPARISON: 12/20/2014. | | TECHNIQUE: Multiaxial CT images were obtained from the foramen magnum to the vertex. IV | | contrast: None. Reformats: Coronal. FINDINGS:Parenchyma: No intraparenchymal hemorrhage. | | No evidence of mass, midline shift or CT findings of infarction. Morrissey-white | | differentiation is distinct. Extraaxial Spaces: Normal for age. No subdural or epidural | | collections identified. Ventricles: Normal in size and position. Sinuses: Imaged | | paranasal sinuses, orbits, and mastoids show no significant abnormality. Bones: No | | evidence of fracture or calvarial defect. Other: Right frontal scalp hematoma . Globes | | and orbits unremarkable. IMPRESSION: 1. Increased prominence of right frontal scalp | | hematoma. No skull fracture.2. No intracranial hemorrhage. Normal appearance of brain | | parenchyma.3. No acute abnormality otherwise seen. Exam otherwise as above. [facility] | | Electronically signed by Jose Brown MD on Dec 21 2014 8:02AM Referring Provider | | Line: [phone] ID: [id number] | |Extraaxial Spaces: Normal for age. No subdural or epidural collections identified. | | | |Ventricles: Normal in size and position. | | | |Sinuses: Imaged paranasal sinuses, orbits, and mastoids show no significant abnormality. | | | |Bones: No evidence of fracture or calvarial defect. | | | |Other: Right frontal scalp hematoma . Globes and orbits unremarkable. | | | |IMPRESSION: | | | |1. Increased prominence of right frontal scalp hematoma. No skull fracture. | |2. No intracranial hemorrhage. Normal appearance of brain parenchyma. | |3. No acute abnormality otherwise seen. Exam otherwise as above. | | | |[facility] | | | | Electronically signed by Jose Brown MD on Dec 21 2014 8:02AM Referring Provider Line : [phone] ID: [id number] | + + documented in this encounter Visit Diagnoses + + | Diagnosis | + + | Mild concussion, without loss of consciousness, initial encounter | + + | Transient confusion Unspecified psychosis | + + documented in this encounter
--- OUTSIDE RECORDS SUMMARY | ~2019-09-09 | XMS | Encounter Summary ---
Demographics + + + | Address | [address] | | | [place] [address] | + + + | Home Phone [...] + | Sammi Kohler | ECON | [place] [address] | | + + + + + Care Team Providers + +------+ + | Care Education Coordinator Name | Role | Phone | + +------+ + PCP | Unavailable | + +------+ + Encounter Details +--------+ + + + + | Date | Type | Department | Care Team | Description | +--------+ + + + + | 07/08/ | [facility] | [facility] | Norah Duron | Facial droop; | | 2013 - | Encounter | [facility] | Osmar Andrea MD [address] | Dysarthria; | | | | CLINICAL DECISION | [address] | Left-sided weakness | | 07/09/ | | [address] | [place] [address] | | | 2013 | | [place], [place] | [phone] | | | | | [address] | | | | | | [phone] | | | +--------+ + + + [...] documented as of this encounter Discharge Summaries Marie Gann MD - 07/09/2013 9:05 AM PDT Discharge Summaries by Marie Gann MD at 07/09/13 0905 Author: Marie Gann MD Service: (none) Author Type: Physician Filed: 07/09/13 1347 Date of Service: 07/09/13904 Status: Signed Director Of Publications: Marie Gann MD (Physician) Related Notes: Original Note by Marie Gann MD (Physician) filed at 07/09/13 0909 [facility] Service: Hospitalist Physician Discharge Summary Patient ID: Norah Gr 1955 57 y.o. Admit date: 07/08/2013 Discharge date: 07/09/2013 Admitting Physician: Norah Duron MD Discharge Physician: Marie Gann MD Consultants: Treatment Team: Consulting Physician: Ness Guan MD Admitting Provider: Norah Duron MD Primary Discharge Diagnoses: Mild Left Facial droop chronic problem per patient Secondary Discharge Diagnoses: Diabetes mellitus, type 2 HTN (hypertension) Anxiety and depression History of GI bleed Development delay COPD (chronic obstructive pulmonary disease) Paroxysmal atrial fibrillation GERD without esophagitis Hypercholesterolemia Obesity, Class I, BMI 30-34.9 HPI and Hospital Course: 58-year-old male with significant history of diabetes, hypertension, hyperlipidemia, sleep apnea, noncompliance with CPAP, paroxysmal atrial fibrillation, not on Coumadin secondary to GI bleed, and presented to the ED with left facial droop. The patient was also on Plavix bu t that was also discontinued secondary to GI bleed and he has just been on an aspirin. The p atient at the time of evaluation, did not have any significant left facial droop in the [facility] department and neurology consult by Dr. Guan was obtained and Dr. Guan recom mended starting the patient on Plavix. HOSPITAL COURSE The patient was admitted with left facial droop. MRI did not show any acute CVA. After Dr. Guan evaluated the patient she recommended that the patient be discontinued on the aspi rin and with outpatient followup to reevaluate if it was safe for the patient to be restarte d on Plavix from a GI standpoint. The patient states that he has some slight left facial alexandra op, which is a chronic problem. He denies any complaints and he wants to go home. The patien t was also noted to have some bradycardia so his Bystolic was discontinued. He will follow u p with his primary care provider and can be restarted as an outpatient. The patient will be discharged home on the rest of his home medications. All data was reviewed with the patient. The plan was discussed with the patient and all que stions were answered. Past Medical History: Past Medical History Diagnosis [...] Facial droop 07/08/2013 Past Surgical History Procedure Date Unlisted procedure arthroscopy Knee surgery rt knee, patella Leg surgery LLE Colonoscopy Cholecystectomy, laparoscopic 09/12/2012 Procedure: LAPAROSCOPIC - CHOLECYSTECTOMY; Surgeon: Jevon Vargas DO; Location: [facility] MAIN OR; Service: General; Laterality: N/A; Abdominal surgery Cholecystectomy Skin cancer excision 10/10/2012 Procedure: EXCISION - SKIN CANCER; Surgeon: Sy Fierro MD; Location: [facility] ; Service: Plastics; Laterality: Left; upper arm and upper back w/frozen section Esophagogastroduodenoscopy 03/03/2013 Procedure: ESOPHAGOGASTRODUODENOSCOPY; Surgeon: Howie Gibson MD; Location: [facility] ENDOSCOPY; S ervice: Gastroenterology; Laterality: N/A; Colonoscopy 03/04/2013 Procedure: COLONOSCOPY; Surgeon: Howie Gibson MD; Location: [facility] ENDOSCOPY; Service: Gastroe nterology; Laterality: N/A; Upper gastrointestinal endoscopy Skin biopsy Hernia repair 07/03/2013 Procedure: LAPAROSCOPIC - HERNIA - INCISIONAL; Surgeon: Jevon Vargas DO; Location: [facility] MAIN OR; Service: General; Laterality: N/A; Discharged Condition: Stable for discharge as stated above. Significant Diagnostic Studies: Ct Head Non-con 07/08/2013 1. No acute intracranial findings. Ultrasound Carotid Bilateral 07/08/2013 1. Mild plaque at the carotid bifurcations, but no evidence of a flow-limiting s tenosis. Mri Brain Wo Contrast And Mra Head 07/08/2013 1. No acute intracranial findings to explain left facial droop or dysarthria. 2. A few tiny scattered foci of chronic microvascular ischemic gliosis seen in the anterior f rontal lobe white matter. This is a nonspecific finding and is commonly associated with a h istory of hypertension and/or diabetes, concordant with the patient's medical history of bot h diseases. 3. Normal variant anatomy noted in the cerebral arterial system with absence of the posterior communicating arteries which would tend to isolate the anterior and posterior circulations. Direct origin of the pericallosal artery from the anterior communicating art wilbert noted. No stenosis, occlusion, aneurysm or vasculitis noted. Discharge Vitals: Filed Vitals: 07/09/13 0013 07/09/13 0406 07/09/13 0738 07/09/13 0750 BP: 153/73 147/85 140/79 160/80 Pulse: 54 56 55 Temp: 98 F (36.7 C) 98 F (36.7 C) 97.6 F (36.4 C) TempSrc: Oral Oral Oral Resp: 18 18 18 Height: Weight: 107.1 kg (236 lb 1.8 oz) SpO2: 96% 96% 98% Discharge Exam: General: Well nourished. Psych: Alert [...] No JVD, Trachea midline. Neurological: Non focal. Mild left-sided facial droop present. Patient states that this is chronic LABS: Lab 07/09/13 0419 07/08/13 1415 WBC 10.6 12.7* RBC 4.93 5.42 HGB 13.1* 14.4 HCT 40.0 44.1 MCV 81.1 81.2 MCH 26.6* 26.5* MCHC 32.8 32.7 RDW 43.8 42.9 PLT 247 348 MPV 7.5 7.4 DIFFTYPE AUTOMATED AUTOMATED Lab 07/09/13 0419 07/08/13 1415 NA 139 142 K 3.7 3.8 CL 104 103 CO2 32 30 BUN 23 26* CREATININE 1.06 1.16 CALCIUM -- -- PROT 6.8 7.8 BILITOT 0.3 0.3 ALKPHOS -- -- ALT 14 21 AST 14 15 GLUF 134* 113* Lab 07/09/13 0419 PHOS 3.8 Lab 07/09/13 0419 MG 2.0 Disposition: Assisted living Follow up: Edin Gutiérrez DO [address] [facility] [phone] Schedule an appointment as soon as possible for a visit in 3 days Ness Guan MD [address] [place] [phone] Schedule an appointment as soon as possible for a visit in 6 weeks Medication List As of 07/09/2013 9:05 AM CONTINUE taking these medications amLODIPine 2.5 MG tablet Refills: 0 Commonly known as: NORVASC ARIPiprazole 10 MG tablet Refills: 0 Commonly known as: ABILIFY aspirin 81 MG chewable tablet QTY: 30 tablet Refills: 0 Take 1 tablet by mouth daily with breakfast. calcium carbonate 500 MG chewable tablet Refills: 0 Commonly known as: TUMS cloNIDine 0.2 MG tablet QTY: 90 tablet Refills: 0 Commonly known as: CATAPRES Take 1 tablet by mouth 3 (three) times daily. diltiazem 180 MG 24 hr capsule Refills: 0 Commonly known as: DILACOR XR docusate sodium 100 MG capsule Refills: 0 Commonly known as: COLACE DULERA 100-5 MCG/ACT Aero Refills: 0 Generic drug: Mometasone Furo-Formoterol Fum fenofibrate 160 MG tablet Refills: 0 Commonly known as: TRICOR HYDROcodone-acetaminophen 5-325 MG per tablet Refills: 0 Commonly known as: NORCO insulin glargine 100 UNIT/ML injection Refills: 0 Commonly known as: LANTUS jvlanndwz-fhkzvbxj-dspicevgn hydroxide-simethicone Refills: 0 lisinopril 40 MG tablet Refills: 0 Commonly known as: ZESTRIL loperamide 2 MG capsule Refills: 0 Commonly known as: IMODIUM LORazepam 1 MG tablet Refills: 0 Commonly [...] 120= 4U, 121-150=5U, 151-180=6U, 181-210= 7U, 211- omeprazole 20 MG capsule QTY: 60 capsule Refills: 1 Commonly known as: PRILOSEC Take 1 capsule by mouth 2 (two) times daily. ondansetron 4 MG disintegrating tablet Refills: 0 Commonly known as: ZOFRAN-ODT oxyCODONE-acetaminophen 5-325 MG per tablet QTY: 60 tablet Refills: 0 Commonly known as: PERCOCET Take 2 tablets by mouth every 4 (four) hours as needed for Pain. PARoxetine 40 MG tablet Refills: 0 Commonly known as: PAXIL polyethylene glycol powder QTY: 527 g Refills: 5 Commonly known as: GLYCOLAX DISSOLVE 17GM IN LIQUID AND DRINK BY MOUTH EVERY DAY pravastatin 20 MG tablet Refills: 0 Commonly known as: PRAVACHOL tiotropium 18 MCG inhalation capsule Refills: 0 Commonly known as: SPIRIVA VENTOLIN HFA IN Refills: 0 STOP taking these medications nebivolol 10 MG tablet Commonly known as: BYSTOLIC TRADJENTA 5 MG tablet Generic drug: linagliptin Marie Gann MD 07/09/2013 9:05 AM Discharge took minutes, to include final examination, discussion of admission, and prepar ation of prescriptions, instructions for ongoing care, follow up and dictation of summary. This entry has been created using [employer] Speech Recognition software and Jamgle. The entry has been reviewed and there may still exist sound alike word errors. documented in th is encounter Medications at Time of Discharge + [...] Progress Notes Conversion Transaction, Provider Unknown - 07/09/2013 10:38 AM PDTFormatting of this note m ight be different from the original. Case Management by Nir Faith RN at 07/09/13 1038 Author: Nir Faith RN Service: (none) Author Type: Registered Nurse Filed: 07/09/13 1039 Date of Service: 07/09/13 1038 Status: Signed Director Of Publications: Nir Faith RN (Registered Nurse) Faxed MD signed AVS and Face Sheet to [facility]. onver ivana Transaction, Provider Unknown - 07/09/2013 10:25 AM PDT Nurse Progress Note by Brunilda Oakley at 07/09/13 1025 Author: Brunilda Oakley Service: (none) Author Type: Nurse Ship Captain Filed: 07/09/13 1027 Date of Service: 07/09/13 1025 Status: Signed Director Of Publications: Brunilda Oakley (Nurse Ship Captain) Pt received and stated understanding of discharge instructions. Pt [facility] wheel[facility] on wheelchair. Family friend picked up the patient. Brunilda Oakley onver ivana Transaction, Provider Unknown - 07/09/2013 9:43 AM PDT Case Management by Nir Faith RN at 07/09/13942 Author: Nir Faith RN Service: (none) Author Type: Registered Nurse Filed: 07/09/13943 Date of Service: 07/09/13942 Status: Signed Director Of Publications: Nir Faith RN (Registered Nurse) Spoke with [facility] who stated they would take pt back, [facility] Pt made [facility], apparently had an appointment for [address] [facility] states pt makes own appts and arranges for own transportation. onver ivana Transaction, Provider Unknown - 07/09/2013 9:30 AM PDT Nurse Progress Note by Nadeen Echavarria RN at 07/09/13929 Author: Nadeen Echavarria RN Service: (none) Author Type: Registered Nurse Filed: 07/09/13958 Date of Service: 07/09/13929 Status: Signed Director Of Publications: Nadeen Echavarria RN (Registered Nurse) Pt to vehicle via w/c vickie Worley, Nurse Ship Captain, for discharge back to [facility]. [facility] sent vehicle to transport him. Pt stable and voices understanding of change in medications a nd of discharge instructions. Personal belongings with pt. onver ivana Transaction, Provider Unknown - 07/09/2013 9:00 AM PDT Nurse Progress Note by Nadeen Echavarria RN at 07/09/13899 Author: Nadeen Echavarria RN Service: (none) Author Type: Registered Nurse Filed: 07/09/13928 Date of Service: 07/09/13899 Status: Signed Director Of Publications: Nadeen Echavarria RN (Registered Nurse) Dr Sanjuanita love. Discharge orders received. onver ivana Transaction, Provider Unknown - 07/09/2013 8:17 AM PDT Case Management by Nir Faith RN at 07/09/13816 Author: Nir Faith RN Service: (none) Author Type: Registered Nurse Filed: 07/09/13819 Date of Service: 07/09/13816 Status: Signed Director Of Publications: Nir Faith RN (Registered Nurse) 07/09/13814 Discharge Planning Evaluation Admitting Diagnosis TIA r/o CVA Readmission Yes-greater than 30 days;Other (comment) (numerous admissions) Living Arrangements Other (Comment) ([facility], [facility]) Support Systems Family members Type of Residence Assisted living Steps to enter (no) Bathrooms on 1st Floor 1-Full Independent with ADL's Yes Independent with Mobility Yes Home Care Services Yes (from [facility]) Mental Status Other (comment) (Developmental delay) Prior functional status independent physically Anticipated Discharge Plan Post Acute Care Needs None at this time Discussed discharge planning with RN, Pt is a 57 y.o., male who lives in an [facility]. Patient's PCP is: EDIN GUTIÉRREZ Patient's insurance: Medicare/Medicaid Coverage concerns: no Medication coverage/concerns: no Community resources utilized / needed: no Assistance in transportation: yes through [facility] Identification of any specific education / training: TBD Barriers to Discharge / Alternative housing needed: no Anticipated DCP: Back to [facility] to transport NIR FAITH RN CASE MANAGER onver ivana [place] Provider Unknown - 07/09/2013 8:15 AM PDT Therapy Progress Note by Norah Jenkins PT at 07/09/13814 Author: Norah Jenkins PT Service: (none) Author Type: Physical Therapist Filed: 07/09/13928 Date of Service: 07/09/13814 Status: Addendum Director Of Publications: Norah Jenkins PT (Physical Therapist) Related Notes: Original Note [place] Nor[place] [address]/09/13814 PT Last Visit PT Received On 07/09/13 Reason for Treatment Other (comment) (facial droop) Requires PT Follow Up No PT Eval/Reassessment Date 07/09/13 Assistance Required Independent Precautions Other Precautions (fall precautions) Other Comments Comments Pt. admitted w/ R sided facial droop which still appears to be present. At this p oint imaging results have been negative for acute neuro findings. Pt. denies pain. Is AOx3 . Is able to perform all aspects of mobilty without external assist from PT. Pt. appears s afe to d/c back home to [facility]. Pt. encouraged to use FWW since he has fallen a few times this month. Cognition Overall Cognitive Status WFL Orientation Level Oriented Comments Hx. of developmental delay and slurred speech. Bed Mobility Supine to Sit Modified independent Sit to Supine Modified independent Transfers Sit to/from Stand Modified independent Bed to/from Chair Modified independent Mobility Ambulation Assistance Modified independent Maximal Ambulation Distance (feet) 250 Total Ambulation Distance (feet) 250 Distance limited by? Patient's ability Pattern Decreased aaron;WFL Assistive Device Walker front wheeled;None (150 ft. with walker, 100 ft. without walker) Balance Balance (scored 25/28 using [place]--low risk for falls) Activity Tolerance Activity Tolerance Patient tolerated treatment without report of fatigue Nurse Made Aware yes Safety Devices Safety Devices in Place (call light in reach) Plan Treatment/Interventions Discharge skilled PT services PT Frequency Evaluation only Recommendation Recommendations Return to prior living situation (Pt. appears to be at his mobility baseline) Equipment Recommended (all equipment needs met) 07/09/13 0815 PT Last Visit PT Received On 07/09/13 Reason for Treatment Other (comment) (facial droop) Requires PT Follow Up No PT Eval/Reassessment Date 07/09/13 Assistance Required Independent Precautions Other Precautions (fall precautions) Home Environment Type of Home Assisted living Home Exterior Layout Entry steps none Home Interior Layout Lives on main level with bedroom/bathroom Home Equipment Cane single point;Walker front wheeled Additional Comments Pt. is able to mobilize indep. at baseline. Pt. reports that he uses h is walker "most of the time", but sometimes gets around "just fine" without it. Recommendation Recommendations Return to prior living situation (Pt. appears to be at his mobility baseline) Equipment Recommended (all equipment needs met) Prior Function Level of [place] Modified independent with functional mobility;Modified independent wi th ADLs;Modified independent with IADLs Lives With Alone ADL Assistance (assist for all ADLs by staff) RUE Assessment RUE Assessment WFL LUE Assessment LUE Assessment WFL RLE Assessment RLE Assessment WFL LLE Assessment LLE Assessment WFL Cognition Overall Cognitive Status WFL Orientation Level Oriented Comments Hx. of developmental delay and slurred speech. Sensation Light Touch No apparent deficits Perception Inattention/Neglect Appears intact Vision-Basic Assessment Current Vision Reading glasses Functional Limitation - G Codes Mobility: Walking & Moving Around: $G8978 Current Status : CI - At least 1% but less than 20% impaired, limited or restricted $G8979 Projected Goal Status : CI - At least 1% but less than 20% impaired, limited or rest ricted $G8980 D/C Status : CI - At least 1% but less than 20% impaired, limited or restricted Rationale: Scored using [place] onver ivana Transaction, Provider Unknown - 07/09/2013 7:50 AM PDT Therapy Progress Note by TORY Sorenson at 07/09/13 0750 Author: TORY Sorenson Service: (none) Author Type: Occupational Therapist Filed: 07/09/13 8885 Date of Service: 07/09/13749 Status: Signed Director Of Publications: TORY Sorenson (Occupational Therapist) 07/09/13 9388 Precautions Other Precautions fall precautions Home Environment Type of Home Assisted living Home Exterior Layout Entry steps none Home Interior Layout Lives on main level with bedroom/bathroom Bathroom Shower/Tub Walk-in shower Bathroom Toilet Standard Bathroom Equipment Shower chair;Grab bars in shower/bath Home Equipment Cane single point;Walker front wheeled Additional Comments Pt is 57 y.o male with developmental delay who lives at [facility] (Per RN). Per pt report he is able to independently complete ADLs. He has assistanc e with IADLs including cooking, cleaning, grocery shopping. Pt does not drive. Reports falli ng 2x's in the last 3 weeks "I was walking and I got weak and fell" another time "the wind k nocked me down" Does not have O2 needs at home, currently on 2 L O2 here. Prior Function Level of [place] Modified independent with functional mobility;Independent with ADLs; Assist with IADLs Lives With Alone ADL Assistance Independent Home ADL's Need assistance Employment On disability Leisure Hobbies-yes (Comment) (playing black rakesh and bingo ) ADL Where Eating Assessed Edge of bed Eating Assistance Independent Grooming Assistance Verbal instruction (for walker safety ) Grooming impacted by Safety concerns LE Dressing Assistance Standby assist Lower body dressing impacted by Endurance;Safety concerns Toileting Assistance with Device Standby assist Toileting impacted by Safety concerns Functional Assistance Standby assist Additional Comments Pt reports he is at his basline level of functioning. Educated pt on sa fe walker use. Pt stated understanding. Pt may benefit from OP PT/OT to address frequent fal ls for improved safety. Pain Screening Currently in Pain No/denies Vision-Basic Assessment Current Vision Reading glasses Cognition Overall Cognitive Status WFL Orientation Level Oriented Comments developmental delay. some slurred speech, but pt is able to answer questions and f ollow commands appropriately. Sensation Light Touch No apparent deficits Perception Inattention/Neglect Appears intact RUE Assessment RUE Assessment WFL LUE Assessment LUE Assessment WFL (slight decrease in LUE compared to R. ) Hand Function Gross Grasp Functional Functional Gross Grasp Able to hold objects in dominant hand;Able to hold objects in non-do minant hand Coordination Functional 07/09/13 0750 Plan Progress Discontinue OT OT Frequency Evaluation/screen only, no additonal treatment Requires OT Follow Up No Recommendation Recommendation Outpatient OT or PT to address frequent falls Functional Limitation - G Codes Self-Care: $G8987 Current Status : CI - At least 1% but less than 20% impaired, limited or restricted $G8988 Projected Goal Status : CI - At least 1% but less than 20% impaired, limited or rest ricted $G8989 D/C Status: CI - At least 1% but less than 20% impaired, limited or restricted Rationale: Pt required supervision for safety concerns with dressing tasks. onver ivana Transaction, Provider Unknown - 07/09/2013 12:38 AM PDT Progress Notes by Ema Walker RPH at 07/09/13 0038 Author: Ema Walker RPH Service: (none) Author Type: Pharmacist Filed: 07/09/13 0038 Date of Service: 07/09/1337 Status: Signed Director Of Publications: Ema Walker RPH (Pharmacist) Clinical Pharmacy Note: Renal Monitoring Norah Gr 57 y.o. male Height: 180.3 cm Weight: 107 kg CREATININE: 1.16 (07/08/13 1415) Estimated creatinine clearance - Cockcroft-Gault CrCl: 86.4 mL/min Pharmacy dosing for renal function per Dr. Druon. Currently, there are no medications needing to be adjusted. Pharmacy will continue to monit or for changes in medication orders and in renal function and adjust accordingly per P & T c ommittee. Ema Walker PharmD 07/09/2013 12:38 AM onver ivana Transaction, Provider Unknown - 07/08/2013 8:35 PM PDT Progress Notes by Ema Walker RPH at 07/08/132034 Author: Ema Walker RPH Service: (none) Author Type: Pharmacist Filed: 07/08/132034 Date of Service: 07/08/132034 Status: Signed Director Of Publications: Ema Walker RPH (Pharmacist) Clinical Pharmacy Note - Therapeutic Intervention: Norah Gr 57 y.o. male Non-formulary Medication: Dulera 100/5 1-2 inhalations BID. Therapeutic Interchange: Advair 250/50 1 inhalation BID. Therapeutic interchange performed by pharmacy per P & T committee. Ema Walker PharmD 07/08/2013 8:34 PM onver ivana Transaction, Provider Unknown - 07/08/2013 2:58 PM PDT Case Management by QUINN Lea at 07/08/13 0992 Author: QUINN Lea Service: (none) Author Type: Safety Fire Boss Filed: 07/08/13 1501 Date of Service: 07/08/13 3835 Status: Signed Director Of Publications: QUINN Lea (Safety Fire Boss) COLTON perez Pt is enrolled in the [facility]. Physician - ple ase review pt's care plan guidelines. Pt w/ 27 ED visits in last 12 months. Pt's [facility] SALES OPERATIONS SPECIALIST report: 06/10/2013 HYDROCODON-ACETAMINOPHEN 5-325 15.000 3 [id number] 06/05/2013 [id number] N [id number] 03/06/2013 LORAZEPAM 0.5 MG TABLET 30.000 9 [id number] 03/06/2013 [id number] N [id number] 03/05/2013 HYDROCODON-ACETAMINOPHEN 5-325 30.000 3 [id number] 03/05/2013 [id number] N [id number] 02/27/2013 HYDROCODON-ACETAMINOPHEN 5-325 10.000 3 [id number] 02/27/2013 [id number] N [id number] 10/10/2012 HYDROCODON-ACETAMINOPH 7.5-750 20.000 5 [id number] 10/10/2012 [id number] N [id number] 09/14/2012 OXYCODONE-ACETAMINOPHEN 5-325 60.000 5 [id number] 09/14/2012 [id number] N [id number] 09/05/2012 HYDROCODON-ACETAMINOPHEN 5-325 12.000 3 [id number] 09/05/2012 [id number] N [id number] 08/19/2012 HYDROCODON-ACETAMINOPHEN 5-500 24.000 6 [id number] 08/15/2012 [id number] N [id number] 08/16/2012 HYDROCODON-ACETAMINOPHEN 5-500 24.000 6 [id number] 08/16/2012 [id number] N [id number] 09/14/2012 OXYCODONE-ACETAMINOPHEN 5-325 60.000 5 [id number] 09/14/2012 [id number] N [id number] 03/05/2013 HYDROCODON-ACETAMINOPHEN 5-325 30.000 7 [id number] 03/05/2013 [id number] N [id number] Starla Lewis docume nted in this encounter H&P Notes Norah Duron MD - 07/08/2013 6:21 PM PDTFormatting of this note might be diff erent from the original. H&P by Norah Duron MD at 07/08/131820 Author: Norah Duron MD Service: Hospitalist Author Type: Physician Filed: 07/08/13 194 Date of Service: 07/08/131820 Status: Signed Director Of Publications: Norah Duron MD (Physician) [place] [facility]ist Admission History & Physical Date of Admission: 07/08/2013 Requesting Physician: Dr. Mae, Hospitalist Reason for Admission: Left facial droop History Obtained From: patient, chart review, Quality of history: fair CHIEF COMPLAINT: Went to nurse station with facial droop and told them he was feeling weak HISTORY OF PRESENT ILLNESS The patient is a 57 y.o. male with significant past medical history of diabetes mellitus, h ypertension, hyperlipidemia, obstructive sleep apnea noncompliant with CPAP, and paroxysmal atrial fibrillationnot on coumadin because of historyof GI bleed used to be on Plavix for th e paroxysmal Afib but now on aspirin, recent workup for chest pain with an negative echocard iogram as well as negative stress test on 05/26/2013, Developmentally delayed is a poor hist orian. In February 2013, the patient had a GI bleed, He had EGD done that showed 1.2 cm nodul e in the gastroesophageal junction that was thought to be a source of bleeding. He also had a colonoscopy that showed rectal ulcers. He had this nodule removed in [facility], 07/03/2013 had laparoscopic umbilical hernia repair and was discharged back to his shelter, with pain medication. According to patient has not had any fever has not had an y nausea or vomiting or diarrhea but on the day of admission per patient he felt weak, light headed as if somebody was pushing him down, according to Nadeen RN at shelter he walked to the nurses station and was noted to have left facial droop and told him that he was feeling weak. They did not think he was slurred more than usual, he does talk very fast when he is a nxious he did not seem to have any left or right handed weakness at the time. Per ED note he also had aphasia, and left-sided weakness. This happened more than 3 hours prior to present ation to the ED and on presentation at the ED and NIHSS score was less than 2 therefore not a TPA candidate. ED physician Dr. Mae did a CT scan of the head and MRI MRA of the head wh ich was negative, he consulted Dr. Guan of neurology who recommended that the patient b e admitted and worked up as well start the patient on Plavix as the patient was on aspirin d uring this episode. Hospitalist will service was therefore called to have the patient observ ed and have the further workup done. By the time admitting hospitalist saw patient in denied any numbness weakness he did not have any slurred speech, he did not have any facial droop, and the patient again did state that he had felt weak and slid against the wall and then si t down before he denied any shortness of breath or loss of consciousness. He denied any palp itations he denied any chest pain. He has not had any vomiting has not had any diarrhea. His main complaint was he had abdominal pain from his umbilical hernia repair. REVIEW OF SYSTEMS Review of Systems Constitutional: Negative for fever. HENT: Negative. Eyes: Negative. Respiratory: Negative. Cardiovascular: Negative. Gastrointestinal: Positive for abdominal pain. Negative for nausea and vomiting. Genitourinary: Negative. Musculoskeletal: Positive for gait problem. Skin: Negative. Neurological: Positive for speech difficulty, weakness and light-headedness. Hematological: Negative. Psychiatric/Behavioral: Negative. Past Medical History Diagnosis Date Diabetes mellitus [...] Nur, rectal ulcers, nodule of GE junction Past Surgical History Procedure Date Unlisted procedure arthroscopy Knee surgery rt knee, patella Leg surgery LLE Colonoscopy Cholecystectomy, laparoscopic 09/12/2012 Procedure: LAPAROSCOPIC - CHOLECYSTECTOMY; Surgeon: Jevon Vargas DO; Location: [facility] MAIN OR; Service: General; Laterality: N/A; Abdominal surgery Cholecystectomy Skin cancer excision 10/10/2012 Procedure: EXCISION - SKIN CANCER; Surgeon: Sy Fierro MD; Location: [facility] MAIN OR ; Service: Plastics; Laterality: Left; upper arm and upper back w/frozen section Esophagogastroduodenoscopy 03/03/2013 Procedure: ESOPHAGOGASTRODUODENOSCOPY; Surgeon: Howie Gibson MD; Location: [facility] ENDOSCOPY; S ervice: Gastroenterology; Laterality: N/A; Colonoscopy 03/04/2013 Procedure: COLONOSCOPY; Surgeon: Howie Gibson MD; Location: [facility] ENDOSCOPY; Service: Gastroe nterology; Laterality: N/A; Upper gastrointestinal endoscopy Skin biopsy Hernia repair 07/03/2013 Procedure: LAPAROSCOPIC - HERNIA - INCISIONAL; Surgeon: Jevon Vargas DO; Location: [facility] MAIN OR; Service: General; Laterality: N/A; Immunizations: Influenza: Up-to-date Pneumoccocal: Up-to-date; approximate date: With the last 3 years Allergies Allergen Reactions Vitamin B12 Rash (Not in a hospital admission) Family History Problem Relation Age of Onset Heart disease Father Heart disease Sister Diabetes type II Sister History Social History Marital Status: Spouse Name: N/A Number of Children: 1 Years of Education: N/A Occupational History Not on file. Social History Main Topics Smoking status: Never Smoker Smokeless tobacco: Never Used Alcohol Use: 0.6 oz/week 1 Cans of beer per week Comment: once week Drug Use: No Sexually Active: Not Currently Other Topics Concern Not on file Social History Narrative Lives in shelter, IADL, full code PHYSICAL EXAM Vital Signs: BP 142/83 | Pulse 60 | Temp 98 F (36.7 C) (Oral) | Resp 18 | Ht 1.803 m (5' 11") | Wt 1 06.142 kg (234 lb) | BMI 32.65 kg/m2 | SpO2 97% Physical Exam Nursing note and vitals reviewed. Constitutional: He is oriented to person, place, and time. He appears well-developed and we ll-nourished. No distress. Obese HENT: Head: Normocephalic and atraumatic. Right Ear: [...] deviation present. N o thyromegaly present. Cardiovascular: Normal rate, regular rhythm and intact distal pulses. Exam reveals no gall op and no friction rub. No murmur heard. Pulmonary/Chest: Effort normal and breath sounds normal. No stridor. No respiratory distres s. He has no wheezes. He has no rales. He exhibits no tenderness. Abdominal: Soft. Bowel sounds are normal. He exhibits no distension and no mass. There is t enderness. There is no rebound and no guarding. Abdominal incision scars seem to be healing well no discharge slight erythema around t he edges well opposed and closed Musculoskeletal: Normal range of motion. He exhibits edema. He exhibits no tenderness. Trace bipedal edema Lymphadenopathy: He has no cervical adenopathy. Neurological: He is alert and oriented to person, place, and time. He has normal reflexes. He displays normal reflexes. No cranial nerve deficit. He exhibits normal muscle tone. Coord ination normal. Skin: Skin is warm and dry. No rash noted. He is not diaphoretic. No pallor. Abdominal incision scars seem to be healing well no discharge slight erythema around t he edges well opposed and closed Psychiatric: He has a normal mood and affect. His behavior is normal. Judgment and thought content normal. DATA CBC: Lab Results Component Value Date WBC 12.7* 07/08/2013 RBC 5.42 07/08/2013 HGB 14.4 07/08/2013 HCT 44.1 07/08/2013 MCV 81.2 07/08/2013 MCH 26.5* 07/08/2013 MCHC 32.7 07/08/2013 RDW 42.9 07/08/2013 PLT 348 07/08/2013 MPV 7.4 07/08/2013 DIFFTYPE AUTOMATED 07/08/2013 CMP: Lab Results Component Value Date NA 142 07/08/2013 K 3.8 07/08/2013 CL 103 07/08/2013 CO2 30 07/08/2013 ANIONGAP 12 07/08/2013 GLUF 113* 07/08/2013 BUN 26* 07/08/2013 CREATININE 1.16 07/08/2013 BCR 22 07/08/2013 CA 9.3 07/08/2013 PROT 7.8 07/08/2013 ALB 3.3* 07/08/2013 GLOB 4.5 07/08/2013 BILITOT 0.3 07/08/2013 ALP 85 07/08/2013 AST 15 07/08/2013 ALT 21 07/08/2013 EGFR >60 07/08/2013 Calcium: No results found for this basename: CALCIUM Magnesium: Lab Results Component Value Date MG 1.9 05/27/2013 Phosphorus: Lab Results Component Value Date PHOS 3.2 05/27/2013 PT/INR: Lab Results Component Value Date INR 1.0 07/08/2013 PTT: Lab Results Component Value Date APTT 25 07/08/2013 [APTT Troponin: Lab Results Component Value Date TROPONINI <0.020 05/27/2013 CPK: Lab Results Component Value Date CKTOTAL 81 06/04/2013 CKMB: Lab Results Component Value Date CKMB 3.3 06/04/2013 U/A: Lab Results Component Value Date COLORU see results 07/08/2013 CLARITYU CLEAR 07/08/2013 CLARITYU CLEAR 04/18/2013 LEUKOCYTESUR NEGATIVE 04/18/2013 NITRITE NEGATIVE 07/08/2013 NITRITE NEGATIVE 04/18/2013 UROBILINOGEN 1.0 07/08/2013 UROBILINOGEN 1.0 04/18/2013 PHUR 7.0 07/08/2013 PHUR 6.0 04/18/2013 BLOODU NEGATIVE 04/18/2013 KETONES NEGATIVE 04/18/2013 BILIRUBINUR NEGATIVE 07/08/2013 BILIRUBINUR NEGATIVE 04/18/2013 GLUCOSEU 100* 04/18/2013 Amylase: Lab Results Component Value Date AMYLASE 19* 09/18/2012 AMYLASE 19* 09/18/2012 Lipase: Lab Results Component Value Date LIPASE 207 06/05/2013 Ct Head Non-con 07/08/2013 1. No acute intracranial findings. Mri Brain Wo Contrast And Mra Head 07/08/2013 1. No acute intracranial findings to explain left facial droop or dysarthria. 2. A few tiny scattered foci of chronic microvascular ischemic gliosis seen in the anterior f rontal lobe white matter. This is a nonspecific finding and is commonly associated with a h istory of hypertension and/or diabetes, concordant with the patient's medical history of bot h diseases. 3. Normal variant anatomy noted in the cerebral arterial system with absence of the posterior communicating arteries which would tend to isolate the anterior and posterior circulations. Direct origin of the pericallosal artery from the anterior communicating art wilbert noted. No stenosis, occlusion, aneurysm or vasculitis noted. LEM LIST Principal Problem: *Facial droop Active Problems: History of GI bleed Hypercholesterolemia Obesity, Class I, BMI 30-34.9 Diabetes mellitus, type 2 HTN (hypertension) Anxiety and depression Development delay COPD (chronic obstructive pulmonary disease) Paroxysmal atrial fibrillation GERD without esophagitis ASSESSMENT & PLAN Patient Active Hospital Problem List: Facial droop (07/08/2013) Assessment: ? TIA Plan: Observe in CDU, neuro checks every 4 hours, patient will be started on Plavix as re commended by Dr. Guan, I will change him over to Lipitor he used to be on atorvastatin, will do ultrasound of carotids, heparin for DVT prophylaxis History of GI bleed (03/02/2013) Assessment: Recently therefore not on Coumadin Plan: Continued to monitor for possible bleed Hypercholesterolemia (07/08/2013) Assessment: Chronic Plan: Discontinued proviso did not change management facilitator to Lipitor 80 mg 3 days for now Obesity, Class I, BMI 30-34.9 (07/08/2013) Assessment: Chronic Plan: dvise weight loss Diabetes mellitus, type 2 () Assessment: Not well-controlled HbA1c 7.2 Plan: Continue with home medication at home dose, diabetic diet insulin sliding scale per protocol adjust home medications upward if needed HTN (hypertension) (09/24/2011) Assessment: Slightly elevated? Secondary to pain Plan: Continue home antihypertensives at same dose, adjust upward if needed Anxiety and depression (08/11/2012) Assessment: Chronic Plan: Continue home medications at same dose Development delay (03/02/2013) Assessment: Chronic Plan: Will need help and discharged back to shelter COPD (chronic obstructive pulmonary disease) (03/02/2013) Assessment: Not active Plan: Continue regular maintenance inhalers, no breathing treatments if with wheezing Paroxysmal atrial fibrillation (04/18/2013) Assessment: In NSR Plan: Will place on telemetry to continue to monitor patient will have to be on Plavix be cause of history of bleed, GERD without esophagitis (05/27/2013) Assessment: Chronic Plan: Continue his PPI at home dose I explained radiology and lab findings, plan of care and management to patient at bedside , told them somebody else from the hospitalist service will see patient later. Patient charanjit lined understanding and agreement with plan of care and did not have any more questions for me after my interaction with him. More than 60 minutes spent on admitting this patient face to face at bedside, taking history and physical examination, more than 65% of this spent on explaining plan of care to patient at bedside, chart review,formulating a plan and placing o rders coordinating care with other providers well as Computerized Zoning Engineer. Other recomm endations for management of this patient will be dependent upon the patient's clinical cours e. Discharge plans when stable and improved in 24 to 48 hours. Disposition: Observe in CDU Dictation software, [employer] [place], used which may contain error for similar sounding words even af ter review. Personal communication requested for any clarification. Code Status: Full code Primary Care Physician: EDIN Duron MD 07/08/2013 documented in this encounter Consult Notes Ness Guan MD - 07/09/2013 8:35 AM PDTFormatting of this note might be different f rom the original. Consults by Ness Guan MD at 07/09/13 0835 Author: eNss Guan MD Service: Neurology Author Type: Physician Filed: 07/09/13 1441 Date of Service: 07/09/13 0835 Status: Signed Director Of Publications: Ness Guan MD (Physician) Related Notes: Original Note by Ness Guan MD (Physician) filed at 07/09/13 1003 Consult Orders: 1. Inpatient consult to Neurology [[id number]] ordered by Marie Gann MD at 04/19 0830 [facility] Service: Neurology Initial Consult Note Date of Admission: 07/08/2013 Reason for Consultation: L face droop, L sided weakness Requesting Physician: Dr Gann, hospital History Obtained From: Chart review and patient CHIEF COMPLAINT: L face droop and L sided weakness HISTORY OF PRESENT ILLNESS The patient is a 57 y.o. 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 The staff also noted a left facial droop. The patient has a history of slurred speech at baseline. He was brought to the ER where a noncontrast he ad CT was unremarkable. He also subsequently underwent an MRI of the brain which did not latisha w any acute infarct even though the patient had symptoms for several hours at that time. I w as then consulted and asked the patient to be placed under observation overnight to rule out any intermittent atrial fibrillation or worsening of neurological symptoms. This morning as I walked into the room, physical therapy was examining him and noted that t he patient had good balance, and was able to ambulate without assistance and without a walke r. The patient was able to provide the above history but could not recount his past medical hi story which I have gathered by reviewing admission note by Dr. Duron. The patient had been on Plavix for paroxysmal atrial fibrillation but on presentation was only on aspirin. T his is likely due to a GI bleed that the patient had in February 2013, and workup had shown a nodule in the stomach and also had rectal ulcers. He had undergone removal of this nodule on July 03, 2013, and umbilical hernia repair from he is still recovering. I had asked the patient to be switched to Plavix as I had not heard about history of recen t surgery. Dr Mae ER physician had also been concerned that while neurological symptoms kelley d improved since arrival, he had persistent symptoms. Patient feels his face is unchanged. (I had asked him if he looked at himself in the mirro r). Denies prior strokes or AL. REVIEW OF SYSTEMS The patient reports no chest pain or palpitations, recent abd surgery - mild pain. No numbn ess of new. All others were reviewed and negative Past Medical History Diagnosis Date Diabetes [...] Facial droop 07/08/2013 Past Surgical History Procedure Date Unlisted procedure arthroscopy Knee surgery rt knee, patella Leg surgery LLE Colonoscopy Cholecystectomy, laparoscopic 09/12/2012 Procedure: LAPAROSCOPIC - CHOLECYSTECTOMY; Surgeon: Jevon Vargas DO; Location: [facility] MAIN OR; Service: General; Laterality: N/A; Abdominal surgery Cholecystectomy Skin cancer excision 10/10/2012 Procedure: EXCISION - SKIN CANCER; Surgeon: Sy Fierro MD; Location: [facility] MA[facility] OR ; Service: Plastics; Laterality: Left; upper arm and upper back w/frozen section Esophagogastroduodenoscopy 03/03/2013 Procedure: ESOPHAGOGASTRODUODENOSCOPY; Surgeon: Howie Gibson MD; Location: [facility] ENDOSCOPY; S ervice: Gastroenterology; Laterality: N/A; Colonoscopy 03/04/2013 Procedure: COLONOSCOPY; Surgeon: Howie Gibson MD; Location: [facility] ENDOSCOPY; Service: Gastroe nterology; Laterality: N/A; Upper gastrointestinal endoscopy Skin biopsy Hernia repair 07/03/2013 Procedure: LAPAROSCOPIC - HERNIA - INCISIONAL; Surgeon: Jevon Vargas DO; Location: [facility] MA[facility] OR; Service: General; Laterality: N/A; Allergies Allergen Reactions Vitamin B12 Rash Prescriptions prior to admission Medication Sig Dispense Refill ARIPiprazole (ABILIFY) 10 MG tablet Take 15 [...] times daily. 90 ta blet 0 diltiazem (DILACOR XR) 180 MG 24 hr capsule Take 180 mg by mouth daily. docusate sodium (COLACE) 100 MG capsule Take 100 mg by mouth nightly. fenofibrate (TRIGLIDE) 160 MG tablet Take 160 mg by mouth daily. HYDROcodone-acetaminophen (NORCO) 5-325 MG per tablet Take 1 tablet by mouth every 6 (s ix) hours as needed. lisinopril (ZESTRIL) 40 MG tablet Take 40 mg by mouth every evening. Mometasone Furo-Formoterol Fum (DULERA) 100-5 MCG/ACT AERO Inhale 1-2 puffs into the sawyer ngs. nebivolol (BYSTOLIC) 10 MG tablet Take 20 mg by mouth daily. NOVOLOG 100 UNIT/ML injection INJ 3U SUB-Q TID(AC) AND INJECT SUBCUTANEOUSLY PER SLIDIN G SCALE 1-70= 2U, 71-100=3U, 101-120= 4U, 121-150=5U, 151-180=6U, 181-210= 7U, 211- 10 mL 5 omeprazole (PRILOSEC) 20 MG capsule Take 1 capsule by mouth 2 (two) times daily. 60 ca psule 1 ondansetron (ZOFRAN-ODT) 4 MG disintegrating tablet Take 4 mg by mouth every 3 (three) hours as needed. oxyCODONE-acetaminophen (ROXICET) 5-325 MG per tablet Take 2 tablets by mouth every 4 ( four) hours as needed for Pain. 60 tablet 0 paroxetine (PAXIL) 40 MG tablet Take 40 mg by mouth every morning. pravastatin (PRAVACHOL) 20 MG tablet Take 20 mg by mouth nightly. tiotropium (SPIRIVA) 18 MCG inhalation capsule Inhale 18 mcg into the lungs daily. Albuterol Sulfate (VENTOLIN HFA IN) Inhale 2 puffs into the lungs as needed. amLODIPine (NORVASC) 2.5 MG tablet Take 2.5 mg by mouth as needed. Take 1 tab when syst olic BP above 150. Recheck BP in 2 hours and if systolic BP is still above 150, take a secon d pill. (Max of 2 a day) insulin glargine (LANTUS) 100 UNIT/ML injection Inject 67 Units into the skin nightly. qkjejurjw-zccrzqek-ebbeogoow hydroxide-simethicone Take 40 mLs by mouth daily as needed . loperamide (IMODIUM) 2 MG capsule Take 2 mg by mouth as needed. 4 mg after first loose stool, then 2 mg after each further loose stool Not to exceed 8 mg per day. LORazepam (ATIVAN) 1 MG tablet Take 1 mg by mouth every 6 (six) hours as needed. meclizine (ANTIVERT) 25 MG tablet Take 25 mg by mouth 3 (three) times daily as needed. Indications: Sensation of Spinning or Whirling nitroGLYCERIN (NITROSTAT) 0.[address] 0.4 mg under the tongue every 5 (five) minutes as needed. polyethylene glycol (GLYCOLAX) powder DISSOLVE 17GM IN LIQUID AND DRINK BY MOUTH EVERY DAY 527 g 5 Scheduled Medications ARIPiprazole 15 mg Oral Nightly atorvastatin 80 mg Oral Nightly cloNIDine 0.2 mg Oral TID clopidogrel 75 mg Oral Daily diltiazem 180 mg Oral Daily fenofibrate 160 mg Oral Daily fluticasone-salmeterol 1 puff Inhalation 2 times daily heparin (porcine) 5,000 Units Subcutaneous Q8H insulin aspart 0-10 Units Subcutaneous TID AC insulin aspart 0-5 Units Subcutaneous Nightly insulin glargine 67 Units Subcutaneous Nightly linagliptin 5 mg Oral Daily lisinopril 40 mg Oral QPM nebivolol 20 mg Oral Daily omeprazole 20 mg Oral BID AC PARoxetine 40 mg Oral QAM polyethylene glycol 17 g Oral Daily sodium chloride 10 mL Intravenous Q8H [DISCONTINUED] Mometasone Furo-Formoterol Fum 1-2 puff Inhalation 2 times daily [DISCONTINUED] polyethylene glycol 17 g Oral Daily [DISCONTINUED] sodium chloride 0.9 % 10 mL Intravenous Q8H Continuous Infusions dextrose PRN Medications acetaminophen, acetaminophen, calcium carbonate, dextrose, dextrose, dextrose, glucagon, gl ucagon, LORazepam, nitroGLYCERIN, ondansetron, oxyCODONE-acetaminophen, polyethylene glycol, albuterol Family History Problem Relation Age of Onset Heart disease Father Heart disease Sister Diabetes type II Sister History Smoking status Never Smoker Smokeless tobacco Never Used History Alcohol Use 0.6 oz/week 1 Cans of beer per week Comment: once week History Drug Use No PHYSICAL EXAM Vital Signs: BP 160/80 | Pulse 55 | Temp 97.6 F (36.4 C) (Oral) | Resp 18 | Ht 1.803 m (5' 11") | Wt 107.1 kg (236 lb 1.8 oz) | BMI 32.95 kg/m2 | SpO2 98% Reviewed telemetry recording - events show a few episodes of ingrid and tachyarrhthmia, no c lear A fib. GENERAL: mildly obese man, well nourished, in NAD HEENT: supple neck, no new head injuries HEART: RRR, no murmur LUNGS: bilateral breath sounds heard, no rhonchi EXTREMITIES: No pedal edema, however skin is dry NEUROLOGIC EXAM: COGNITION: awake, alert, oriented x4, thought he was on second floor of hospital (first) could not name President but able to select correctly from choices, could spell WORLD forwar ds but not backwards, could subtract 3 from 20, naming and repetition intact, slightly dysar thric but fluent speech (per patient this is baseline) follows commands. CRANIAL NERVES: PERRL, visual kong full, EOMI, no nystagmus, facial sensation intact to light touch, facial movement symmetric however he appears to have a flatter nasol abial fold on L and droop, hearing intact to finger rub bilat, palate elevates symmetric, SCM and trapezius 5/5 bilat, tongue protrudes midline. MOTOR: tone and bulk normal, no pronator drift, strength 5/5 throughout Delt Bic Tric Interossei WE WF HF KF KE DF PF R 5 5 5 5 5 5 5 5 5 5 5 L 5 5 5 5 5 5 5 5 5 5 5 REFLEXES: 2+ symmetric bilateral biceps, triceps, brachioradialis, trace patella, 0 radha s. Toes down-going bilat SENSORY: impaired distally bilaterally to elbow and knee to light touch, pin prick COORDINATION: Finger nose finger intact bilat, finger tapping fast and symmetric ROMBERG: intact GAIT: normal gait IMAGING: Ct Head Non-con 07/08/2013 1. No acute intracranial findings. Ultrasound Carotid Bilateral 07/08/2013 1. Mild plaque at the carotid bifurcations, but no evidence of a flow-limiting s tenosis. Mri Brain Wo Contrast And Mra Head (I have reviewed images myself) 07/08/2013 1. No acute intracranial findings to explain left facial droop or dysarthria. 2. A few tiny scattered foci of chronic microvascular ischemic gliosis seen in the anterior f rontal lobe white matter. This is a nonspecific finding and is commonly associated with a h istory of hypertension and/or diabetes, concordant with the patient's medical history of bot h diseases. 3. Normal variant anatomy noted in the cerebral arterial system with absence of the posterior communicating arteries which would tend to isolate the anterior and posterior circulations. Direct origin of the pericallosal artery from the anterior communicating art wilbert noted. No stenosis, occlusion, aneurysm or vasculitis noted. CBC: Lab Results Component Value Date WBC 10.6 07/09/2013 RBC 4.93 07/09/2013 HGB 13.1* 07/09/2013 HCT 40.0 07/09/2013 MCV 81.1 07/09/2013 MCH 26.6* 07/09/2013 MCHC 32.8 07/09/2013 RDW 43.8 07/09/2013 PLT 247 07/09/2013 MPV 7.5 07/09/2013 DIFFTYPE AUTOMATED 07/09/2013 BMP: Lab Results Component Value Date NA 139 07/09/2013 K 3.7 07/09/2013 CL 104 07/09/2013 CO2 32 07/09/2013 ANIONGAP 7 07/09/2013 GLUF 134* 07/09/2013 BUN 23 07/09/2013 CREATININE 1.06 07/09/2013 BCR 22 07/09/2013 CA 9.1 07/09/2013 EGFR >60 07/09/2013 PT/INR: Lab Results Component Value Date INR 1.0 07/08/2013 PROBLEM LIST Principal Problem: *Facial droop Active Problems: Diabetes mellitus, type 2 HTN (hypertension) Anxiety and depression History of GI bleed Development delay COPD (chronic obstructive pulmonary disease) Paroxysmal atrial fibrillation GERD without esophagitis Hypercholesterolemia Obesity, Class I, BMI 30-34.9 ASSESSMENT & PLAN Mr. Gr is a 57-year-old man with a history of developmental delay who lives at an adult family home/FPC who was brought to the ER yesterday after he was brought to the ER yesterday after he had a fall complaining of left-sided weakness and left facial droop. Per patient, the facial droop is his baseline and also has slurred speech which is unchanged. O n neurological exam, the patient did not have any focal neurological deficit other than dist al symmetric sensory neuropathy. He does have a mildly flattened nasolabial fold and slight droop of angle of mouth but it is unclear whether it is new onset or not. I have reviewed the MRI of the brain which was performed after a few hours after the patien t had onset of symptoms yesterday. This did not show any acute infarct or intraparenchymal b leed. He is definitely at risk for ischemic strokes with history of diabetes, hypertension, hype rlipidemia, and paroxysmal atrial fibrillation. Without clear evidence of acute infarct on t he MRI and given his recent surgery, I recommend that he continue aspirin without changing t o Plavix. The patient has no prior history of TIA or stroke. 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 His Hb A1C is elevated at 7. He should follow up with his PCP to control his diabetes, hype rtension, and hyperlipidemia optimally. He should also be encouraged to get CPAP and use it religiously to help control hypertension and also reduce his risk of stroke. Recommend followup with outpatient neurology in 6 weeks. Code Status: Full Code Primary Care Physician: EDIN GUTIÉRREZ Thank you for allowing me to participate in the care of this patient. Please call if there are any additional questions. Ness Guan MD 07/09/2013 8:36 AM I spent more than 50 minutes in the total care of this patient including review of chart, e xam and formulating a plan of care with the admitting team. documented in this encounter ED Notes Conversion Transaction, Provider Unknown - 07/08/2013 7:21 PM PDTFormatting of this note m ight be different from the original. ED Notes by Onel Kenney RN at 07/08/131920 Author: Onel Kenney RN Service: (none) Author Type: Registered Nurse Filed: 07/08/131921 Date of Service: 07/08/131920 Status: Signed Director Of Publications: Onel Kenney RN (Registered Nurse) Assumed care of pt from Yojana Andrea RN. Pt resting in bed with food tray at bedside. Swallow eval performed prior to allowing pt to eat. Call light within reach, all needs met at this t silva. Onel Kenney, EVE 07/08/131921 Kristian Vinson MD - 07/08/2013 2:29 PM PDT ED Provider Notes by Kristian Mae MD at 07/08/13 2997 Author: Kristian Mae MD Service: (none) Author Type: Physician Filed: 07/09/13 1230 Date of Service: 07/08/13 1426 Status: Signed Director Of Publications: Kristian Mae MD (Physician) [facility] Department of Emergency Medicine 2:29 PM History of Present Illness Patient Identification Norah Gr is a 57 y.o. male. Patient information was obtained from patient. History/Exam limitations: none. Patient presented to the Emergency Department by: [facility] 1723 Chief Complaint Chief Complaint Patient presents with Aphasia Slurred speach today with left side weakness. Patient is not sure of exact time, but "may be 2 hours ago." The patient presents to ED with complaints of aphasia. Onset of symptoms was about 2 hours ago, with a persistent course since that time. The symptoms are described to be of moderate- severe severity. 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 Pt states while walking, he fell into the wall a couple o f times.The patient also complains of abd pain secondary to hernia repair done 3 days ago. P atient denies fever, chills, N/V/D, or bowel/bladder habit changes. No care prior to arrival . Pt reports having an abd hernia repaired 3 days ago. PCP: EDIN GUTIÉRREZ Past Medical History [...] Facial droop 07/08/2013 Past Surgical History Procedure Date Unlisted procedure arthroscopy Knee surgery rt knee, patella Leg surgery LLE Colonoscopy Cholecystectomy, laparoscopic 09/12/2012 Procedure: LAPAROSCOPIC - CHOLECYSTECTOMY; Surgeon: Jevon Vargas DO; Location: [facility] MAIN OR; Service: General; Laterality: N/A; Abdominal surgery Cholecystectomy Skin cancer excision 10/10/2012 Procedure: EXCISION - SKIN CANCER; Surgeon: Sy Fierro MD; Location: [facility] MAIN OR ; Service: Plastics; Laterality: Left; upper arm and upper back w/frozen section Esophagogastroduodenoscopy 03/03/2013 Procedure: ESOPHAGOGASTRODUODENOSCOPY; Surgeon: Howie Gibson MD; Location: [facility] ENDOSCOPY; S ervice: Gastroenterology; Laterality: N/A; Colonoscopy 03/04/2013 Procedure: COLONOSCOPY; Surgeon: Howie Gibson MD; Location: [facility] ENDOSCOPY; Service: Gastroe nterology; Laterality: N/A; Upper gastrointestinal endoscopy Skin biopsy Hernia repair 07/03/2013 Procedure: LAPAROSCOPIC - HERNIA - INCISIONAL; Surgeon: Jevon Vargas DO; Location: [facility] MAIN OR; Service: General; Laterality: N/A; Prior to Admission medications Medication Sig Start Date End Date Taking? Authorizing Provider Albuterol Sulfate (VENTOLIN HFA IN) Inhale 2 puffs into the lungs as needed. Historical Provider amLODIPine (NORVASC) 2.5 MG tablet Take 2.5 mg by mouth daily. Take one pill When systolic BP above 150, recheck in 2 hrs and if still above 150 take a second pill. Historical Pro vider ARIPiprazole (ABILIFY) 10 MG tablet Take 15 [...] times daily. 03/05/13 Scott Martínez MD diltiazem (DILACOR XR) 180 MG 24 hr capsule Take 180 mg by mouth daily. Historical Provi carlos docusate sodium (COLACE) 100 MG capsule Take [...] Inject 67 Units into the skin nightly. H istorical Provider linagliptin (TRADJENTA) 5 MG tablet Take 5 mg by mouth daily. Historical Provider lisinopril (ZESTRIL) 40 MG tablet [...] hour s as needed. Historical Provider oxyCODONE-acetaminophen (ROXICET) 5-325 MG per tablet Take 2 tablets by mouth every 4 (four ) hours as needed for Pain. 07/03/13 07/13/13 Jevon Vargas DO paroxetine (PAXIL) 40 MG tablet Take [...] Smoker Smokeless tobacco: Never Used Alcohol Use: 0.6 oz/week 1 Cans of beer per week Comment: once [...] sore throat CV/Resp: Negative for chest pain, [id number], cough GI: Positive for abdominal pain Negative for nausea, vomiting, or diarrhea : Negative for urinary problems Musculoskeletal: Negative for back pain, joint pain Skin: Negative for rash Neuro/Psych: Positive for dysarthria and L sided weakness as well as left facial droop Negative for headache Endo/heme/Lymph: Negative for swollen lymph nodes, easy bruising All other systems reviewed and negative except as noted. Physical Exam BP 182/86 | Pulse 69 | Temp 99.6 F (36.7 C) (Oral) | Resp 16 | Ht 1.803 m (5' 11") | Wt 106.142 kg (234 lb) | BMI 32.65 kg/m2 | SpO2 96% Vital signs interpretation: Low grade fever, hypertensive Pulse Oximetry interpretation: Normal General: Alert, awake, and oriented, in no apparent distress Eyes: Normal inspection, pupils equal and round, non-icteric, EOMI HENT: Atraumatic, no facial numbness, mild L facial droop, tongue is midline and pt is abl e to move it to each side Ears normal Nose normal Pharynx normal Neck: Normal inspection, normal ROM with no apparent pain No lymphadenopathy No JVD Cardiovascular: Rate and rhythm normal No murmurs, no bruit or gallop Good distal pulses and good cap refill Chest: Non tender, good excursion Respiratory: Breath sounds normal bilaterally Voice is mildly dysarthric/mildly slurred, not horse at this time No rales, wheezing or rhonchi No accessory muscle use Abdomen: Soft, non-tender at this time, non-distended, obese Normal active bowel sounds No organomegaly No guarding or rebound Back: Normal inspection, good ROM without pain, atraumatic Extremities: No edema, good ROM without pain or significant weakness, pt reports subjective weakness of the L leg when standing but is able to ambulate Skin: Color normal Warm and dry No rash Neuro: Alert, no AMS, some dysarthria and moderately slurred speech. No objective motor deficit though pt c/o mild subjective left sided weakness. No sensory deficit Medical Decision Making and Emergency Department Course ED Department Course Patient presents to ED with complaints of aphasia and L sided weakness. Exam is as listed a louann. My DDx includes, but is not limited to: TIA, CVA, acute Giant Cell Arteritis, hypoglyc emia, meningitis, vs other. Will order CBC, troponin, PTT, CMP, sed rate, CRP, INR, POCT glu cose, POC creatinine, and reevaluate the patient. Patient is stable at this time. Pt's NIH s core is a 2, based on NIH score, pt would not be a candidate for TPA. 1439 Pt's creatinine is 1.2. 1711 Pt recheck. Pt's facial droop and speech has improved. Informed pt that I am awaiting MRI results, he understands. 1755 Reviewed MRI results. Will consult neurology. Reviewed lab results, mild white count. 181 Discussed case with , neurosurgery, who will be happy to consult and state s pt should be switched from Aspirin to Plavix. 1823 Discussed case with , hospitalist, who accepts pt for admission. 182 Pt recheck. Informed pt of the need for admission and care plan. Pt understands and ag malka with plan. ED Medication Administration from 07/08/2013 1423 to 07/08/20132011 Date/Time Order Dose Route Action Action by 07/08/2013 1455 sodium chloride 0.9 % flush 10 mL Intravenous Canceled Entry Roxana nava, RN Records Reviewed Old medical records. Nursing notes. Previous [facility] ED visits for unrelated complaints. Laboratory Evaluation Results Procedure Component Value Ref Range Date/Time Urine Microscopic [[id number]] (Abnormal) Collected:07/08/13 1748 Order Status:Completed Updated:07/08/13 180 Specimen Information:Urine / Urine, Clean Catch WBC 0-2 0 - 5 /hpf RBC 0-2 0 - 2 /hpf EPITHELIAL 1-5 /lpf BACTERIA 1+ (A) NONE SEEN Crystals 1+ /hpf POC clinitek 10 [[id number]] (Abnormal) Collected:07/08/13 1741 Order Status:Completed Updated:07/08/13 1744 Color, UA YELLOW Clarity, UA CLEAR Glucose, UA NEGATIVE NEGATIVE mg/dL Bilirubin, UA NEGATIVE NEGATIVE Ketones, UA NEGATIVE NEGATIVE mg/dL Spec Grav, UA 1.025 1.001 - 1.035 Blood, UA TRACE (A) NEGATIVE pH, UA 7.0 4.6 - 8.0 Protein, UA TRACE (A) NEGATIVE mg/dL Urobilinogen, UA 1.0 <1.1 mg/dL Nitrite, UA NEGATIVE NEGATIVE WBC, UA NEGATIVE NEGATIVE Lactic acid, plasma [[id number]] Collected:07/08/13 1530 Order Status:Completed Updated:07/08/13 1617 Specimen Information:Blood LACTIC ACID 0.8 0.4 - 2.0 mmol/L Sedimentation Rate (ESR) [[id number]] Collected:07/08/13 1415 Order Status:Completed Updated:07/08/13 1539 Specimen Information:Blood ESR 14 0 - 20 mm/Hr Complete Metabolic Panel [[id number]] (Abnormal) Collected:07/08/131414 Order Status:Completed Updated:07/08/131514 Specimen Information:Blood SODIUM 142 135 - 143 mmol/L POTASSIUM 3.8 3.5 - 4.9 mmol/L CHLORIDE 103 99 - 109 mmol/L CO2 30 23 - 32 mmol/L ANION GAP AGAP 12 5 - 20 mmol/L GLUCOSE 113 (H) 65 - 99 mg/dL BUN 26 (H) 8 - 25 mg/dL CREATININE 1.16 0.70 - 1.30 mg/dL BUN/CREAT 22 CALCIUM 9.3 8.5 - 10.2 mg/dL TOTAL PROTEIN 7.8 6.3 - 8.2 g/dL Albumin 3.3 (L) 3.6 - 5.0 g/dL GLOBULIN 4.5 1.3 - 4.9 g/dL A/G 0.7 (L) 1.0 - 2.4 TBIL 0.3 0.1 - 1.5 mg/dL ALK PHOS 85 35 - 115 U/L AST 15 10 - 45 U/L ALT 21 10 - 65 U/L EGFR >60 >60 mL/min/1.73m2 C-Reactive Protein [[id number]] (Abnormal) Collected:07/08/131414 Order Status:Completed Updated:07/08/131514 Specimen Information:Blood CRP 2.3 (H) <0.5 mg/dL Protime-INR [[id number]] Collected:07/08/131414 Order Status:Completed Updated:07/08/131510 Specimen Information:Blood INR 1.0 PTT [[id number]] Collected:07/08/131414 Order Status:Completed Updated:07/08/131510 Specimen Information:Blood APTT 25 23 - 32 seconds CBC w Auto Diff [[id number]] (Abnormal) Collected:07/08/131414 Order Status:Completed Updated:07/08/131501 Specimen Information:Blood WBC 12.7 (H) 3.8 - 11.0 K/uL RBC 5.42 4.20 - 5.70 M/uL HGB 14.4 13.2 - 17.0 g/dL HCT 44.1 39.0 - 50.0 % MCV 81.2 80.0 - 100.0 fl MCH 26.5 (L) 27.0 - 34.0 pg MCHC 32.7 32.0 - 35.5 g/dL RDW SD 42.9 37 - 53 fl PLT 348 150 - 400 K/uL MPV 7.4 fl DIFF TYPE AUTOMATED NEUTROPHILS 57.7 % LYMPHOCYTES 30.4 % MONOCYTES 8.4 % EOSINOPHILS 3.1 % BASOPHILS 0.4 % NEUTROPHILS ABS 7.3 1.9 - 7.4 K/uL LYMPHOCYTES ABS 3.9 1.0 - 3.9 K/uL MONOCYTES ABS 1.1 (H) 0 - 0.8 K/uL EOSINOPHILS ABS 0.4 0 - 0.5 K/uL BASOPHILS ABS 0.0 0 - 0.1 K/uL POC cardiac troponin [[id number]] Collected:07/08/13 1436 Order Status:Completed Updated:07/08/13 1501 POC CARDIAC TROPONIN 0.00 0.00 - 0.10 ng/mL POCT glucose [[id number]] Order Status:Sent POC creatinine [[id number]] Collected:07/08/13 1434 Order Status:Completed Updated:07/08/13 1439 POC CREATININE 1.2 0.7 - 1.5 mg/dL I personally reviewed the lab results and they have been posted to the chart. Pertinent po sitive and negative findings have been addressed appropriately. Radiology and EKG Evaluation Imaging Results MRI brain wo contrast and MRA head (Final result) Result time:07/08/13 1712 Final result by Rad Results In Richard (07/08/13 17:12:35) Impression: 1. No acute intracranial findings to explain left facial droop or dysarthria. 2. A few tiny scattered foci of chronic microvascular ischemic gliosis seen in the anterio r frontal lobe white matter. This is a nonspecific finding and is commonly associated with a history of hypertension and/or diabetes, concordant with the patient's medical history of both diseases. 3. Normal variant anatomy noted in the cerebral arterial system with absence of the linux server administrator ior communicating arteries which would tend to isolate the anterior and posterior circulatio ns. Direct origin of the pericallosal artery from the anterior communicating artery noted. No stenosis, occlusion, aneurysm or vasculitis noted. Narrative: NORAH GR MRI BRAIN WO AND MRA HEAD 07/08/2013 4:48 PM HISTORY: 57 years. Male. Left-sided facial droop and mild dysarthria. TECHNIQUE: Imaging was performed on a 1.5 [employer] MRI system. Multiplanar sequences were acquired accor ding to a standard department protocol without contrast. A 3D noncontrast [id number] M RA sequence was acquired through the head. Multiplanar angiographic MIP reconstructions fro m the MRA dataset were performed. COMPARISON: Noncontrast CT head exam 07/08/2013 1547 hrs. FINDINGS: A few discrete punctate foci of FLAIR hyperintensity are seen in the bi-hemispheric frontal lobe white matter. These are a nonspecific finding. The most common consideration in the differential diagnosis would include microvascular ischemic gliosis due to hypertension and/ or diabetes or migraine phenomenon. These are unlikely to be of clinical significance. The DWI sequence shows no evidence of acute ischemia or infarct. The T2* GRE sequence does not show low signal material to suggest microhemorrhage or calcification within the brain parenc hyma. A few dilated perivascular spaces are seen in the left basal ganglia which are of no clinical significance. The ventricles, cisterns and sulci are normal in size and configuration. No extraaxial flui d collections are noted. The midline structures including the corpus callosum, ronaldo, cerebe llar vermis, pineal gland and pituitary are normal. No masses are seen in the region of the cerebellopontine angles or internal auditory canals . The orbits and their contents are normal. Fluid is seen in the frontal sinuses suggestin g mild sinusitis. A small amount of fluid is seen within the posterior left ethmoid air stella ls. The other sinuses are well aerated. No fluid seen in the mastoids. The osseous struct ures of the calvaria and upper cervical spine demonstrate normal bone marrow signal intensit y. The soft tissues of the oropharynx and upper neck appear normal on the sagittal sequence s. The intracranial arteries demonstrate normal flow voids on the T2 sequence. No large an eurysm is noted. The dural venous sinuses also demonstrate normal flow-voids. MRA Distal Internal Carotids: Right Internal carotid: Widely patent. Left Internal carotid: Widely patent. Posterior Circulation: Vertebral Dominance: Codominant. Right vertebral artery: Normal. Left vertebral artery: Normal. Posterior inferior cerebellar arteries: Normal. Anterior inferior cerebellar arteries: Normal. Basilar artery: Normal. Superior cerebellar arteries: Normal. Right posterior cerebral artery: Normal. Left posterior cerebral artery: Normal. [place]: Anterior communicating artery: Normal. The pericallosal artery arises directly from the an terior communicating artery which is a normal variant. Right posterior communicating artery: Not visualized. It may be too small to resolve or is congenitally absent. Left posterior communicating artery: Not visualized. It may be too small to resolve or is c ongenitally absent. Anterior Circulation: Right Anterior cerebral artery: A1 segment: Hypoplastic. A2 segment: Normal. Right MCA: M1 segment: Normal. Post bifurcation M1 segment: Normal. M2 segments: Normal. M3 segments: Normal. M4 segments: Normal. Left Anterior cerebral artery: A1 segment: Normal. A2 segment: Normal. Left MCA: M1 segment: Normal. Post bifurcation M1 segment: Normal. M2 segments: Normal. M3 segments: Normal. M4 segments: Normal. CT Head Non-Con (Final result) Result time:07/08/13 1558 Final result by Rad Results In Richard (07/08/13 15:58:06) Impression: 1. No acute intracranial findings. Narrative: NORAH GR CT HEAD WO CONTRAST 07/08/2013 3:49 PM HISTORY: 57 years. Male. Left-sided facial droop and mild dysarthria. TECHNIQUE: 5-mm axial noncontrast images were acquired from the foramen magnum through the cranial saad lana. COMPARISON: 03/16/2012 FINDINGS: The brain parenchyma does not demonstrate acute intra-axial hemorrhage, midline shift, mass effect or cerebral edema. The ventricles, cisterns and sulci are normal in size and config uration. Normal garnica-white differentiation is preserved. No extra-axial fluid collections are noted. The orbits and their contents are normal. The paranasal sinuses are well aerate d. No mucosal thickening or air-fluid levels are noted. The mastoid air cells show normal pneumatization bilaterally. No mastoid fluid noted. The osseous structures of the calvaria do not demonstrate fracture. No lytic or blastic lesions are noted. EKG Time: 1439 Vent. Rate of 64 Normal sinus rhythm Intervals normal [place] normal ST segments T waves are normal No signs of ischemia Reviewed and interpreted by Kristian Mae M.D. ED Diagnoses Final diagnoses Facial droop Dysarthria Left-sided weakness, mild Disposition: ED Disposition Admit/Observation Bed request special needs: Telemetry Diagnosis?: left facial droop, dysarthria, mild left sided weakness Follow-up Information Follow up With Details Comments Contact Info Edin Gutiérrez DO Schedule an appointment as soon as possible for a visit in 3 days [address] [facility] [address] Ness Guan MD Schedule an appointment as soon as possible for a visit in [address] weeks [address] [place] [address] Discharge Medications: New Prescriptions No new medications Additional Documentation Procedures Attending Note: Documentation assistance provided by Renee Dela Cruz (Scribe). Information recorded by the scribe has been reviewed and validated by me. Troy laughlin with its contents. MD Kristian Silverman MD 07/09/13 1230 onversion Merchant saction, Provider Unknown - 07/08/2013 2:26 PM PDTFormatting of this note might be differen t from the original. ED Notes by Roxana Walters RN at 07/08/13 142 Author: Roxana Walters RN Service: (none) Author Type: Registered Nurse Filed: 07/08/13 143 Date of Service: 07/08/131425 Status: Signed Director Of Publications: Roxana Walters RN (Registered Nurse) at bedside. Roxana Walters RN 07/08/13 143 onver ivana Transaction, Provider Unknown - 07/08/2013 2:23 PM PDT ED Notes by Roxana Walters RN at 07/08/131422 Author: Roxana Walters RN Service: (none) Author Type: Registered Nurse Filed: 07/08/13 142 Date of Service: 07/08/131422 Status: Signed Director Of Publications: Roxana Walters RN (Registered Nurse) Bed:19
Expected date:
Expected time:
Means of arrival:
Comments:
1723 onver ivana Transaction, Provider Unknown - 07/08/2013 2:19 PM PDT ED Notes by Tatum Pratt RN at 07/08/13 1419 Author: Tatum Pratt RN Service: (none) Author Type: Registered Nurse Filed: 07/08/13 1420 Date of Service: 07/08/13 1419 Status: Signed Director Of Publications: Tatum Pratt RN (Registered Nurse) Pt having increased confusion, feels like his speech is worse than normal, hx of speech imp ediment. 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 Tatum Pratt RN 07/08/13 1420 docume nted in this encounter Miscellaneous Notes Plan of Care - Conversion Transaction, Provider Unknown - 07/08/2013 9:00 PM PDT Plan of Care by Nola Sanchez RN at 07/08/132099 Author: Nola Sanchez RN Service: (none) Author Type: Registered Nurse Filed: 07/09/13 0503 Date of Service: 07/08/132099 Status: Signed Director Of Publications: Nola Sanchez RN (Registered Nurse) Problem: Pain Goal: Patient s pain/discomfort is manageable Assess and monitor patient s pain using appropriate pain scale. Collaborate with interdis ciplinary team and initiate plan and interventions as ordered. Re-assess patient s pain le tracy approximately 1-2 hours after pain management intervention. Premedicate as needed. Outcome: Progressing Pt educated on 0-10 pain scale and available pain interventions discussed. Pt denies pain a t this time. Will continue to monitor pain level and treat appropriately. Problem: Safety Goal: Patient will be injury [...] and non-skid footwear provided. Outcome: Progressing Pt oriented to unit/room and safety precautions discussed. Pt currently resting in bed, lauren e rails up x2, call light within reach, non-skid socks on. Pt agrees to notify nursing staff prior to ambulating due to generalized weakness and fatigue. Bed alarm initiated for pt's s afety. Fall risk sign placed outside of door. Will continue to monitor for safety concerns a nd address appropriately. docume kauffmaned in this encounter Plan of Treatment +--------+---------+ + + + | Date | Type | Specialty | Care Team | Description | +--------+---------+ + + + | 09/10/ | Office | Geriatric Medicine | Mireya Pack, | | | 2019 | Visit | | [facility] [address] | | | | | | [address] [place], | | | | | | [place] [address] | | | | | | [phone] | | | | | | | | +--------+---------+ + + + | 09/29/ | Office | Urology | Mireya Pack, | | | 2020 | Visit | | [facility] [address] | | | | | | [address] [place], | | | | | | [place] [address] | | | | | | [phone] | | | | | | | | | | | | Toy Wild W, DO | | | | | | [address] | | | | | | [place] [address] | | | | | | [phone] | | | | | | | | +--------+---------+ + + + documented as of this encounter Procedures + +--------+ + + + | Procedure Name | Priori | Date/Time | Associated Diagnosis | Comments | | | ty | | | | + +--------+ + + + | URINALYSIS WITH | Routin | 07/09/2013 | | Results for this | | MICROSCOPIC IF | e | 5:58 AM | | procedure are in the | | INDICATED | | PDT | | results section. | + +--------+ + + + | POC GLUCOSE | Routin | 07/09/2013 | | Results for this | | | e | 5:39 AM | | procedure are in the | | | | PDT | | results section. | + +--------+ + + + | EXTERNAL LAB: CBC | Routin | 07/09/2013 | | Results for this | | | e | 4:19 AM | | procedure are in the | | | | PDT | | results section. | + +--------+ + + + | PHOSPHORUS | Routin | 07/09/2013 | | Results for this | | | e | 4:19 AM | | procedure are in the | | | | PDT | | results section. | + +--------+ + + + | MAGNESIUM | Routin | 07/09/2013 | | Results for this | | | e | 4:19 AM | | procedure are in the | | | | PDT | | results section. | + +--------+ + + + | HEMOGLOBIN A1C | Routin | 07/09/2013 | | Results for this | | | e | 4:19 AM | | procedure are in the | | | | PDT | | results section. | + +--------+ + + + | COMPREHENSIVE | Routin | 07/09/2013 | | Results for this | | METABOLIC PANEL | e | 4:19 AM | | procedure are in the | | | | PDT | | results section. | + +--------+ + + + | POC GLUCOSE | Routin | 07/08/2013 | | Results for this | | | e | 9:55 PM | | procedure are in the | | | | PDT | | results section. | + +--------+ + + + | VAS CAROTID DUPLEX | Routin | 07/08/2013 | | Results for this | | BILATERAL | e | 9:42 PM | | procedure are in the | | | | PDT | | results section. | + +--------+ + + + | URINALYSIS, | Routin | 07/08/2013 | | Results for this | | MICROSCOPIC ONLY | e | 5:48 PM | | procedure are in the | | | | PDT | | results section. | + +--------+ + + + | MRI BRAIN WO | Routin | 07/08/2013 | | Results for this | | CONTRAST ANGIOGRAM | e | 4:48 PM | | procedure are in the | | HEAD WO CONTRAST | | PDT | | results section. | + +--------+ + + + | CT HEAD WO CONTRAST | Routin | 07/08/2013 | | Results for this | | | e | 3:49 PM | | procedure are in the | | | | PDT | | results section. | + +--------+ + + + | CULTURE, BLOOD, 2ND | Timed | 07/08/2013 | | Results for this | | SPECIMEN (NON-ORD) | | 3:36 PM | | procedure are in the | | | | PDT | | results section. | + +--------+ + + + | CULTURE, BLOOD | Timed | 07/08/2013 | | Results for this | | | | 3:30 PM | | procedure are in the | | | | PDT | | results section. | + +--------+ + + + | LACTIC ACID | Routin | 07/08/2013 | | Results for this | | | e | 3:30 PM | | procedure are in the | | | | PDT | | results section. | + +--------+ + + + | ECG 12 LEAD | Routin | 07/08/2013 | | Results for this | | | e | 2:39 PM | | procedure are in the | | | | PDT | | results section. | + +--------+ + + + | EXTERNAL LAB: CBC | Routin | 07/08/2013 | | Results for this | | | e | 2:15 PM | | procedure are in the | | | | PDT | | results section. | + +--------+ + + + | PTT | Routin | 07/08/2013 | | Results for this | | | e | 2:15 PM | | procedure are in the | | | | PDT | | results section. | + +--------+ + + + | SEDIMENTATION RATE, | Routin | 07/08/2013 | | Results for this | | AUTOMATED | e | 2:15 PM | | procedure are in the | | | | PDT | | results section. | + +--------+ + + + | PROTIME INR | Routin | 07/08/2013 | | Results for this | | | e | 2:15 PM | | procedure are in the | | | | PDT | | results section. | + +--------+ + + + | C-REACTIVE PROTEIN | Routin | 07/08/2013 | | Results for this | | | e | 2:15 PM | | procedure are in the | | | | PDT | | results section. | + +--------+ + + + | COMPREHENSIVE | Routin | 07/08/2013 | | Results for this | | METABOLIC PANEL | e | 2:15 PM | | procedure are in the | | | | PDT | | results section. | + +--------+ + + + documented in this encounter Results Urinalysis with Microscopic if Indicated (07/09/2013 5:58 AM PDT) + + + + [...] | | | | | [place] [address] | | | | + + + + + + | Clarity, | CLEARComment: Testing | | EXTERNAL | | | Urine | performed at [facility], [address] | | LAB | | | | [address], | | | | | | [place] [address] | | | | + + + + + + | Specific | 1.021Comment: Testing | 1.002 - 1.030 | EXTERNAL | | | [place], | performed at [facility], [address] | | LAB | | | Urine | [address], | | | | | | [place] [address] | | | | + + + + + + | Leukocyte | NEGATIVEComment: | | EXTERNAL | | | Esterase, | Testing performed at | | LAB | | | Urine | [facility], [address] | | | | | | [place] | | | | | | [address] | | | | + + + + + + | Nitrite, | NEGATIVEComment: Testing | | EXTERNAL | | | Urine | performed at [facility], [address] | | LAB | | | | [address], | | | | | | [place] [address] | | | | + + + + + + | Urobilinoge | 1.0Comment: Testing | mg/dL | EXTERNAL | | | n, Urine | performed at [facility], [address] | | LAB | | | | [address], | | | | | | [place] [address] | | | | + + + + + + | Protein, | NEGATIVEComment: Testing | mg/dL | EXTERNAL | | | Urine | performed at [facility], [address] | | LAB | | | | [address], | | | | | | [place] [address] | | | | + + + + + + | pH, Urine | 6.5Comment: Testing | 5.0 - 8.0 | EXTERNAL | | | | performed at [facility], [address] | | LAB | | | | [address], | | | | | | [place] [address] | | | | + + + + + + | Blood, | NEGATIVEComment: Testing | | EXTERNAL | | | Urine | performed at [facility], [address] | | LAB | | | | [address], | | | | | | [place] [address] | | | | + + + + + + | Ketones | NEGATIVEComment: Testing | mg/dL | EXTERNAL | | | | performed at [facility], [address] | | LAB | | | | [address], | | | | | | [place] [address] | | | | + + + + + + | Bilirubin, | NEGATIVEComment: Testing | | EXTERNAL | | | Urine | performed at [facility], [address] | | LAB | | | | [address], | | | | | | [place] [address] | | | | + + + + + + | Glucose, | NEGATIVEComment: Testing | mg/dL | EXTERNAL | | | Urine | performed at [facility], [address] | | LAB | | | | [address], | | | | | | [place] [address] | | | | + + + + + + + + | Specimen | + + | Urine specimen | | (specimen) | + + + +---------+ + + | Performing | Address | City/State/Zipcode | Phone Number | | Organization | | | | + +---------+ + + | EXTERNAL LAB | | | | + +---------+ + + POC Glucose (07/09/2013 5:39 AM PDT) + + + + + [...] | LAB | | | | [address] [place] | | | | | | [address] | | | | + + + + + + + + | Specimen | + + | | + + + +---------+ + + | Performing | Address | City/State/Zipcode | Phone Number | | Organization | | | | + +---------+ + + | EXTERNAL LAB | | | | + +---------+ + + External Lab: CBC (07/09/2013 4:19 AM PDT) + + + + + + | Component | Value | Ref Range | Performed | Pathologist | | | | | At | Signature | + + + + + + | WBC | 10.6Comment: Testing | 3.8 - 11.0 K/uL | EXTERNAL | | | | performed at [facility], [address] | | LAB | | | | [address], | | | | | | [place] [address] | | | | + + + + + + | Non- | 4.93Comment: Testing | 4.20 - 5.70 | EXTERNAL | | | Red Blood | performed at [facility], [address] | M/uL | LAB | | | Cells | [address], | | | | | Counted | [place] [address] | | | | + + + + + + | Hemoglobin | 13.1 (L)Comment: Testing | 13.2 - 17.0 | EXTERNAL | | | | performed at [facility], [address] | g/dL | LAB | | | | [address], | | | | | | [place] [address] | | | | + + + + + + | Hematocrit, | 40.0Comment: Testing | 39.0 - 50.0 % | EXTERNAL | | | POC | performed at [facility], [address] | | LAB | | | | [address], | | | | | | [place] [address] | | | | + + + + + + | MCV | 81.1Comment: Testing | 80.0 - 100.0 fl | EXTERNAL | | | | performed at [facility], [address] | | LAB | | | | [address], | | | | | | [place] [address] | | | | + + + + + + | MCH | 26.6 (L)Comment: Testing | 27.0 - 34.0 pg | EXTERNAL | | | | performed at [facility], [address] | | LAB | | | | [address], | | | | | | [place] [address] | | | | + + + + + + | MCHC | 32.8Comment: Testing | 32.0 - 35.5 | EXTERNAL | | | | performed at [facility], [address] | g/dL | LAB | | | | [address], | | | | | | [place] [address] | | | | + + + + + + | RDW-CV | 43.8Comment: Testing | 37 - 53 fl | EXTERNAL | | | | performed at [facility], [address] | | LAB | | | | [address], | | | | | | [place] [address] | | | | + + + + + + | Platelet | 247Comment: Testing | 150 - 400 K/uL | EXTERNAL | | | Count | performed at [facility], [address] | | LAB | | | Plasma | [address], | | | | | | [place] [address] | | | | + + + + + + | MPV | 7.5Comment: Testing | fl | EXTERNAL | | | | performed at [facility], [address] | | LAB | | | | [address], | | | | | | [place] [address] | | | | + + + + + + | Differentia | AUTOMATEDComment: | | EXTERNAL | | | l Type | Testing performed at | | LAB | | | | [facility], [address] | | | | | | [place] | | | | | | [address] | | | | + + + + + + | % Segmented | 56.1Comment: Testing | % | EXTERNAL | | | | performed at [facility], [address] | | LAB | | | Neutrophils | [address], | | | | | | [place] [address] | | | | + + + + + + | % | 30.5Comment: Testing | % | EXTERNAL | | | Lymphocytes | performed at [facility], [address] | | LAB | | | | [address] [place], | | | | | | [place] [address] | | | | + + + + + + | % Monocytes | 9.1Comment: Testing | % | EXTERNAL | | | | performed at [facility], [address] | | LAB | | | | [address], | | | | | | [place] [address] | | | | + + + + + + | % | 4.1Comment: Testing | % | EXTERNAL | | | Eosinophils | performed at [facility], [address] | | LAB | | | | [address], | | | | | | [place] [address] | | | | + + + + + + | % Basophils | 0.2Comment: Testing | % | EXTERNAL | | | | performed at [facility], [address] | | LAB | | | | [address], | | | | | | [place] [address] | | | | + + + + + + | Absolute | 5.9Comment: Testing | 1.9 - 7.4 K/uL | EXTERNAL | | | Segmented | performed at [facility], [address] | | LAB | | | Neutrophils | [address], | | | | | | [place] [address] | | | | + + + + + + | Absolute | 3.2Comment: Testing | 1.0 - 3.9 K/uL | EXTERNAL | | | Lymphocytes | performed at [facility], [address] | | LAB | | | | [address], | | | | | | [place] [address] | | | | + + + + + + | Absolute | 1.0 (H)Comment: Testing | 0 - 0.8 K/uL | EXTERNAL | | | Monocytes | performed at [facility], [address] | | LAB | | | | [address], | | | | | | [place] [address] | | | | + + + + + + | Absolute | 0.4Comment: Testing | 0 - 0.5 K/uL | EXTERNAL | | | Eosinophils | performed at [facility], [address] | | LAB | | | | [address], | | | | | | [place] [address] | | | | + + + + + + | Absolute | 0.0Comment: Testing | 0 - 0.1 K/uL | EXTERNAL | | | Basophils | performed at [facility], [address] | | LAB | | | | [address], | | | | | | [place] [address] | | | | + + + + + + | RBC | Comment: 1+ | | EXTERNAL | | | Morphology | HypochromiaTesting | | LAB | | | | performed at [facility], [address] | | | | | | [address], | | | | | | [place] [address] | | | | + + + + + + + + | Specimen | + + | Blood specimen | | (specimen) | + + + +---------+ + + | Performing | Address | City/State/Zipcode | Phone Number | | Organization | | | | + +---------+ + + | EXTERNAL LAB | | | | + +---------+ + + Phosphorus (07/09/2013 4:19 AM PDT) + + + + + + | Component | Value | Ref Range | Performed | Pathologist | | | | | At | Signature | + + + + + + | PHOSPHORUS | 3.8Comment: Testing | 2.3 - 4.8 mg/dL | EXTERNAL | | | | performed at [facility], [address] | | LAB | | | | [address], | | | | | | [place] [address] | | | | + + + + + + + + | Specimen | + + | Blood specimen | | (specimen) | + + + +---------+ + + | Performing | Address | City/State/Zipcode | Phone Number | | Organization | | | | + +---------+ + + | EXTERNAL LAB | | | | + +---------+ + + Magnesium (07/09/2013 4:19 AM PDT) + + + + + + | Component | Value | Ref Range | Performed | Pathologist | | | | | At | Signature | + + + + + + | Magnesium | 2.0Comment: Testing | 1.7 - 2.4 mg/dL | EXTERNAL | | | | performed at [facility], [address] | | LAB | | | | [address], | | | | | | [place] [address] | | | | + + + + + + + + | Specimen | + + | Blood specimen | | (specimen) | + + + +---------+ + + | Performing | Address | City/State/Zipcode | Phone Number | | Organization | | | | + +---------+ + + | EXTERNAL LAB | | | | + +---------+ + + Hemoglobin A1C (07/09/2013 4:19 AM PDT) + + + + + + | Component | Value | Ref Range | Performed | Pathologist | | | | | At | Signature | + + + + + + | Hemoglobin | 7.1 (H)Comment: The | 4.0 - 6.0 % | EXTERNAL | | | A1c | [facility] | | LAB | | | [...] | | | | | performed at [facility], [address] | | | | | [address], | | | | | | [place] [address] | | | | + + + + + + | Glycohemogl | 157Comment: The ADA | mg/dL | EXTERNAL | [...] | | | | | performed at [facility], [address] | | | | | | [facility], | | | | | | [place] [address] | | | | + + + [...] + +---------+ + + Comprehensive Metabolic Panel (07/09/2013 4:19 AM PDT) + + + + [...] | | | | | [place] [address] | | | | + + + + + + | K | 3.7Comment: Testing | 3.5 - 4.9 | EXTERNAL | | | | performed at [facility], [address] | mmol/L | LAB | | | | [address], | | | | | | [place] [address] | | | | + + + + + + | Cl | 104Comment: Testing | 99 - 109 mmol/L | EXTERNAL | | | | performed at [facility], [address] | | LAB | | | | [address], | | | | | | [place] [address] | | | | + + + + + + | CO2 | 32Comment: Testing | 23 - 32 mmol/L | EXTERNAL | | | | performed at [facility], [address] | | LAB | | | | [address], | | | | | | [place] [address] | | | | + + + + + + | Anion Gap | 7Comment: Testing | 5 - 20 mmol/L | EXTERNAL | | | | performed at [facility], [address] | | LAB | | | | [address], | | | | | | [place] [address] | | | | + + + + + + | Glucose, | 134 (H)Comment: Testing | 65 - 99 mg/dL | EXTERNAL | | | Fasting | performed at [facility], [address] | | LAB | | | | [address], | | | | | | [place] [address] | | | | + + + + + + | BUN | 23Comment: Testing | 8 - 25 mg/dL | EXTERNAL | | | | performed at [facility], [address] | | LAB | | | | [address], | | | | | | [place] [address] | | | | + + + + + + | Creatinine | 1.06Comment: Testing | 0.70 - 1.30 | EXTERNAL | | | | performed at [facility], [address] | mg/dL | LAB | | | | [address], | | | | | | [place] [address] | | | | + + + + + + | BUN/Creatin | 22Comment: Testing | | EXTERNAL | | | ine Ratio | performed at [facility], [address] | | LAB | | | | [address], | | | | | | [place] [address] | | | | + + + + + + | Calcium | 9.1Comment: Testing | 8.5 - 10.2 | EXTERNAL | | | | performed at [facility], [address] | mg/dL | LAB | | | | [address], | | | | | | [place] [address] | | | | + + + + + + | Protein, | 6.8Comment: Testing | 6.3 - 8.2 g/dL | EXTERNAL | | | Total | performed at [facility], [address] | | LAB | | | [address], | | | | | | [place] [address] | | | | + + + + + + | Albumin | 3.5 (L)Comment: Testing | 3.6 - 5.0 g/dL | EXTERNAL | | | | performed at [facility], [address] | | LAB | | | | [address], | | | | | | [place] [address] | | | | + + + + + + | Globulin | 3.3Comment: Testing | 1.3 - 4.9 g/dL | EXTERNAL | | | | performed at [facility], [address] | | LAB | | | | [address], | | | | | | [place] [address] | | | | + + + + + + | A/G Ratio | 1.1Comment: Testing | 1.0 - 2.4 | EXTERNAL | | | | performed at [facility], [address] | | LAB | | | | [address], | | | | | | [place] [address] | | | | + + + + + + | Bilirubin | 0.3Comment: Testing | 0.1 - 1.5 mg/dL | EXTERNAL | | | Total | performed at [facility], [address] | | LAB | | | | [address], | | | | | | [place] [address] | | | | + + + + + + | ALP, | 63Comment: Testing | 35 - 115 U/L | EXTERNAL | | | External | performed at [facility], [address] | | LAB | | | | [address], | | | | | | [place] [address] | | | | + + + + + + | AST | 14Comment: Testing | 10 - 45 U/L | EXTERNAL | | | | performed at [facility], [address] | | LAB | | | | [address], | | | | | | [place] [address] | | | | + + + + + + | ALT | 14Comment: Testing | 10 - 65 U/L | EXTERNAL | | | | performed at [facility], [address] | | LAB | | | | [address], | | | | | | [place] [address] | | | | + + + [...] [address], | | | | | | [place] [address] | | | | + + + + + + + + | Specimen | + + | Blood specimen | | (specimen) | + + + +---------+ + + | Performing | Address | City/State/Zipcode | Phone Number | | Organization | | | | + +---------+ + + | EXTERNAL LAB | | | | + +---------+ + + POC Glucose (07/08/2013 9:55 PM PDT) + + + + + + | Component | Value | Ref Range | Performed | Pathologist | | | | | At | Signature | + + + + + + | Glucose, | 175 (H)Comment: Testing | 65 - 99 mg/dL | EXTERNAL | | | Fingerstick | performed at [facility];[address] | | LAB | | | [address];[place], [place] | | | | | | [address] | | | | + + + + + + + + | Specimen | + + | | + + + +---------+ + + | Performing | Address | City/State/Zipcode | Phone Number | | Organization | | | | + +---------+ + + | EXTERNAL LAB | | | | + +---------+ + + VAS Carotid Duplex Bilateral (07/08/2013 9:42 PM PDT) + + | Specimen | + + | | + + + + + | Impressions | Performed At | + + + | 1. Mild plaque at the carotid bifurcations, but no evidence of a | | | flow-limiting stenosis. | | + + + + + + | Narrative | Performed At | + + + | [facility] US CAROTID DOPPLER, BILATERAL 07/08/2013 8:54 PM | | | HISTORY: Facial droop with left-sided weakness. TECHNIQUE: | | | Duplex ultrasound of the carotid arteries was performed in the neck | | | bilaterally. FINDINGS: No comparison. There is mild plaque at the | | | carotid bifurcations bilaterally. Velocity measurements are in the | | | grade 1/2 range, without evidence of flow-limiting stenosis that would | | | measure 50% or greater. Both vertebral arteries show antegrade flow. | | | | | + + + + + | Procedure Note | + + | Richard, Rad Conversion - 09/21/2018 3:31 PM PDT [facility] CAROTID DOPPLER, | | BILATERAL07/08/2013 8:54 PM HISTORY:Facial droop with left-sided weakness. | | TECHNIQUE:Duplex ultrasound of the carotid arteries was performed in the neck | | bilaterally. FINDINGS:No comparison. There is mild plaque at the carotid bifurcations | | bilaterally. Velocity measurements are in the grade 1/2 range, without evidence of | | flow-limiting stenosis that would measure 50% or greater. Both vertebral arteries show | | antegrade flow. IMPRESSION: 1. Mild plaque at the carotid bifurcations, but no evidence | | of a flow-limiting stenosis. Electronically signed by Joe De Dios MD on | | 07/08/2013 9:27 PM | | | |FINDINGS: | |No comparison. There is mild plaque at the carotid bifurcations bilaterally. Velocity measu rements are in the grade 1/2 range, without evidence of flow-limiting stenosis that would me asure 50% or greater. Both vertebral arteries show antegrade flow. | | | |IMPRESSION: | |1. Mild plaque at the carotid bifurcations, but no evidence of a flow-limiting stenosis. | | | | | + + Urinalysis, Microscopic Only (07/08/2013 5:48 PM PDT) + + + +----- -------+ + | Component | Value | Ref Range | Perf ormed | Pathologist | | | | | At | Signature | + + + +----- -------+ + | WBC, UA | 0-2Comment: Testing | 0 - 5 /hpf | EXTE RNAL | | | | performed at [facility];[address] | | LAB | | | | [address];[place] | | | | | | [address] | | | | + + + +----- -------+ + | RBC, UA | 0-2Comment: Testing | 0 - 2 /hpf | EXTE RNAL | | | | performed at [facility];[address] | | LAB | | | | [address];[place] | | | | | | [address] | | | | + + + +----- -------+ + | Epithelial | 1-5Comment: Testing | /lpf | EXTE RNAL | | | Cells | performed at [facility];[address] | [address] | | | [address];[place] | | | | | | [address] | | | | + + + +----- -------+ + | Bacteria, | 1+ (A)Comment: Testing | | EXTE RNAL | | | UA | performed at [facility];[address] | | LAB | | | [address];[place] | | | | | | [address] | | | | + + + +----- -------+ + | Crystals | 1+Comment: | /hpf | EXTE RNAL | | | | PHOSPHATESFEWCALCIUM | | LAB | | | | OXALATETesting performed | | | | | | at [facility];[address] | [address];[place] [address] | | | | | |Testing performed at [facility];[address];[place] [address] | | | | | | | | | | + + + +----- -------+ + + + | Specimen | + + | Urine specimen | | (specimen) | + + + +---------+ + + | Performing | Address | City/State/Zipcode | Phone Number | | Organization | | | | + +---------+ + + | EXTERNAL LAB | | | | + +---------+ + + MRI Brain Wo MRA Head Wo (07/08/2013 4:48 PM PDT) + + | Specimen | + + | | + + + + + | Impressions | Performed At | + + + | 1. No acute intracranial findings to explain left facial droop or | | | dysarthria. 2. A few tiny scattered foci of chronic microvascular | | | ischemic gliosis seen in the anterior frontal lobe white matter. | | | This is a nonspecific finding and is commonly associated with a | | | history of hypertension and/or diabetes, concordant with the | | | patient's medical history of both diseases. 3. Normal variant | | | anatomy noted in the cerebral arterial system with absence of the | | | posterior communicating arteries which would tend to isolate the | | | anterior and posterior circulations. Direct origin of the | | | pericallosal artery from the anterior communicating artery noted. | | | No stenosis, occlusion, aneurysm or vasculitis noted. | | | | | + + + + + + | Narrative | Performed At | + + + | [facility] MRI BRAIN WO AND MRA HEAD 07/08/2013 4:48 PM | | | HISTORY: 57 years. Male. Left-sided facial droop and mild | | | dysarthria. TECHNIQUE: Imaging was performed on a 1.5 [employer] [facility] | | | system. Multiplanar sequences were acquired according to a standard | | | department protocol without contrast. A 3D noncontrast | | | [id number] MRA sequence was acquired through the head. | | | Multiplanar angiographic MIP reconstructions from the MRA dataset | | | were performed. COMPARISON: Noncontrast CT head exam 07/08/2013 | | | 1547 hrs. FINDINGS: A few discrete punctate foci of FLAIR | | | hyperintensity are seen in the bi-hemispheric frontal lobe white | | | matter. These are a nonspecific finding. The most common | | | consideration in the differential diagnosis would include | | | microvascular ischemic gliosis due to hypertension and/or diabetes | | | or migraine phenomenon. These are unlikely to be of clinical | | | significance. The DWI sequence shows no evidence of acute ischemia or | | | infarct. The T2* GRE sequence does not show low signal material to | | | suggest microhemorrhage or calcification within the brain | | | parenchyma. A few dilated perivascular spaces are seen in the left | | | basal ganglia which are of no clinical significance. The | | | ventricles, cisterns and sulci are normal in size and configuration. | | | No extraaxial fluid collections are noted. The midline structures | | | including the corpus callosum, ronaldo, cerebellar vermis, pineal gland | | | and pituitary are normal. No masses are seen in the region of the | | | cerebellopontine angles or internal auditory canals. The orbits and | | | their contents are normal. Fluid is seen in the frontal sinuses | | | suggesting mild sinusitis. A small amount of fluid is seen within | | | the posterior left ethmoid air cells. The other sinuses are well | | | aerated. No fluid seen in the mastoids. The osseous structures of | | | the calvaria and upper cervical spine demonstrate normal bone marrow | | | signal intensity. The soft tissues of the oropharynx and upper | | | neck appear normal on the sagittal sequences. The intracranial | | | arteries demonstrate normal flow voids on the T2 sequence. No large | | | aneurysm is noted. The dural venous sinuses also demonstrate normal | | | flow-voids. MRA Distal Internal Carotids: Right Internal | | | carotid: Widely patent. Left Internal carotid: Widely patent. | | | Posterior Circulation: Vertebral Dominance: Codominant. Right | | | vertebral artery: Normal. Left vertebral artery: Normal. Posterior | | | inferior cerebellar arteries: Normal. Anterior inferior cerebellar | | | arteries: Normal. Basilar artery: Normal. Superior cerebellar | | | arteries: Normal. Right posterior cerebral artery: Normal. Left | | | posterior cerebral artery: Normal. [place]: Anterior | | | communicating artery: Normal. The pericallosal artery arises | | | directly from the anterior communicating artery which is a normal | | | variant. Right posterior communicating artery: Not visualized. It | | | may be too small to resolve or is congenitally absent. Left posterior | | | communicating artery: Not visualized. It may be too small to resolve | | | or is congenitally absent. Anterior Circulation: Right Anterior | | | cerebral artery: A1 segment: Hypoplastic. A2 segment: Normal. | | | Right MCA: M1 segment: Normal. Post bifurcation M1 segment: Normal. | | | M2 segments: Normal. M3 segments: Normal. M4 segments: Normal. | | | Left Anterior cerebral artery: A1 segment: Normal. A2 segment: | | | Normal. Left MCA: M1 segment: Normal. Post bifurcation M1 | | | segment: Normal. M2 segments: Normal. M3 segments: Normal. M4 | | | segments: Normal. | | + + + + + | Procedure Note | + + | Richard, Rad Conversion - 09/21/2018 3:31 PM PDT [facility] | | HEAD07/08/2013 4:48 PM HISTORY:57 years. Male. Left-sided facial droop and mild | | dysarthria. TECHNIQUE:Imaging was performed on a 1.5 Eden MRI system. Multiplanar | | sequences were acquired according to a standard department protocol without contrast. | | A 3D noncontrast [id number] MRA sequence was acquired through the head. Multiplanar | | angiographic MIP reconstructions from the MRA dataset were performed. | | COMPARISON:Noncontrast CT head exam 07/08/2013 1547 hrs. FINDINGS:A few discrete | | punctate foci of FLAIR hyperintensity are seen in the bi-hemispheric frontal lobe white | | matter. These are a nonspecific finding. The most common consideration in the | | differential diagnosis would include microvascular ischemic gliosis due to hypertension | | and/or diabetes or migraine phenomenon. These are unlikely to be of clinical | | significance. The DWI sequence shows no evidence of acute ischemia or infarct. The T2* | | GRE sequence does not show low signal material to suggest microhemorrhage or | | calcification within the brain parenchyma. A few dilated perivascular spaces are seen | | in the left basal ganglia which are of no clinical significance. The ventricles, | | cisterns and sulci are normal in size and configuration. No extraaxial fluid collections | | are noted. The midline structures including the corpus callosum, ronaldo, cerebellar | | vermis, pineal gland and pituitary are normal. No masses are seen in the region of the | | cerebellopontine angles or internal auditory canals. The orbits and their contents are | | normal. Fluid is seen in the frontal sinuses suggesting mild sinusitis. A small amount | | of fluid is seen within the posterior left ethmoid air cells. The other sinuses are | | well aerated. No fluid seen in the mastoids. The osseous structures of the calvaria | | and upper cervical spine demonstrate normal bone marrow signal intensity. The soft | | tissues of the oropharynx and upper neck appear normal on the sagittal sequences. The | | intracranial arteries demonstrate normal flow voids on the T2 sequence. No large | | aneurysm is noted. The dural venous sinuses also demonstrate normal flow-voids. | | MRADistal Internal Carotids:Right Internal carotid: Widely patent.Left Internal carotid: | | Widely patent. Posterior Circulation:Vertebral Dominance: Codominant.Right vertebral | | artery: Normal.Left vertebral artery: Normal.Posterior inferior cerebellar arteries: | | Normal.Anterior inferior cerebellar arteries: Normal.Basilar artery: Normal.Superior | | cerebellar arteries: Normal.Right posterior cerebral artery: Normal.Left posterior | | cerebral artery: Normal. [place]:Anterior communicating artery: Normal. The | | pericallosal artery arises directly from the anterior communicating artery which is a | | normal variant.Right posterior communicating artery: Not visualized. It may be too | | small to resolve or is congenitally absent.Left posterior communicating artery: Not | | visualized. It may be too small to resolve or is congenitally absent. Anterior | | Circulation:Right Anterior cerebral artery:A1 segment: Hypoplastic.A2 segment: Normal. | | Right MCA:M1 segment: Normal.Post bifurcation M1 segment: Normal.M2 segments: Normal.M3 | | segments: Normal.M4 segments: Normal. Left Anterior cerebral artery:A1 segment: | | Normal.A2 segment: Normal. Left MCA:M1 segment: Normal.Post bifurcation M1 segment: | | Normal.M2 segments: Normal.M3 segments: Normal.M4 segments: Normal. IMPRESSION: 1. No | | acute intracranial findings to explain left facial droop or dysarthria.2. A few tiny | | scattered foci of chronic microvascular ischemic gliosis seen in the anterior frontal | | lobe white matter. This is a nonspecific finding and is commonly associated with a | | history of hypertension and/or diabetes, concordant with the patient's medical history | | of both diseases.3. Normal variant anatomy noted in the cerebral arterial system with | | absence of the posterior communicating arteries which would tend to isolate the anterior | | and posterior circulations. Direct origin of the pericallosal artery from the anterior | | communicating artery noted. No stenosis, occlusion, aneurysm or vasculitis noted. | | | |Right Anterior cerebral artery: | |A1 segment: Hypoplastic. | |A2 segment: Normal. | | | |Right MCA: | |M1 segment: Normal. | |Post bifurcation M1 segment: Normal. | |M2 segments: Normal. | |M3 segments: Normal. | |M4 segments: Normal. | | | |Left Anterior cerebral artery: | |A1 segment: Normal. | |A2 segment: Normal. | | | |Left MCA: | |M1 segment: Normal. | |Post bifurcation M1 segment: Normal. | |M2 segments: Normal. | |M3 segments: Normal. | |M4 segments: Normal. | | | |IMPRESSION: | |1. No acute intracranial findings to explain left facial droop or dysarthria. | |2. A few tiny scattered foci of chronic microvascular ischemic gliosis seen in the anterio r frontal lobe white matter. This is a nonspecific finding and is commonly associated with a history of hypertension and/or diabetes, concordant with the | |patient's medical history of both diseases. | |3. Normal variant anatomy noted in the cerebral arterial system with absence of the linux server administrator ior communicating arteries which would tend to isolate the anterior and posterior circulatio ns. Direct origin of the pericallosal artery from the anterior | |communicating artery noted. No stenosis, occlusion, aneurysm or vasculitis noted. | | | | | + + CT Head wo Contrast (07/08/2013 3:49 PM PDT) + + | Specimen | + + | | + + + + + | Impressions | Performed At | + + + | 1. No acute intracranial findings. | | + + + + + + | Narrative | Performed At | + + + | NORAH Andrea GR CT HEAD WO CONTRAST 07/08/2013 3:49 PM HISTORY: | | | 57 years. Male. Left-sided facial droop and mild dysarthria. | | | TECHNIQUE: 5-mm axial noncontrast images were acquired from the | | | foramen magnum through the cranial vertex. COMPARISON: 03/16/2012 | | | FINDINGS: The brain parenchyma does not demonstrate acute | | | intra-axial hemorrhage, midline shift, mass effect or cerebral edema. | | | The ventricles, cisterns and sulci are normal in size and | | | configuration. Normal garnica-white differentiation is preserved. No | | | extra-axial fluid collections are noted. The orbits and their | | | contents are normal. The paranasal sinuses are well aerated. No | | | mucosal thickening or air-fluid levels are noted. The mastoid air | | | cells show normal pneumatization bilaterally. No mastoid fluid | | | noted. The osseous structures of the calvaria do not demonstrate | | | fracture. No lytic or blastic lesions are noted. | | + + + + + | Procedure Note | + + | Richard, Rad Conversion - 09/21/2018 3:31 PM PDT [facility] | | CONTRAST07/08/2013 3:49 PM HISTORY:57 years. Male. Left-sided facial droop and mild | | dysarthria. TECHNIQUE:5-mm axial noncontrast images were acquired from the foramen | | magnum through the cranial vertex. COMPARISON:03/16/2012 FINDINGS:The brain parenchyma | | does not demonstrate acute intra-axial hemorrhage, midline shift, mass effect or | | cerebral edema. The ventricles, cisterns and sulci are normal in size and | | configuration. Normal garnica-white differentiation is preserved. No extra-axial fluid | | collections are noted. The orbits and their contents are normal. The paranasal sinuses | | are well aerated. No mucosal thickening or air-fluid levels are noted. The mastoid | | air cells show normal pneumatization bilaterally. No mastoid fluid noted. The osseous | | structures of the calvaria do not demonstrate fracture. No lytic or blastic lesions are | | noted. IMPRESSION: 1. No acute intracranial findings. | |FINDINGS: | |The brain parenchyma does not demonstrate acute intra-axial hemorrhage, midline shift, mass effect or cerebral edema. The ventricles, cisterns and sulci are normal in size and config uration. Normal garnica-white differentiation is preserved. No | |extra-axial fluid collections are noted. The orbits and their contents are normal. The pa ranasal sinuses are well aerated. No mucosal thickening or air-fluid levels are noted. The mastoid air cells show | |normal pneumatization bilaterally. No mastoid | |fluid noted. The osseous structures of the calvaria do not demonstrate fracture. No lytic or blastic lesions are noted. | | | |IMPRESSION: | |1. No acute intracranial findings. | | | | | + + Culture, Blood, 2nd Specimen (07/08/2013 3:36 PM PDT) + + | Specimen | + + | Blood specimen | | (specimen) | + + + + + | Narrative | Performed At | + + + | Specimen Description BLOOD SPECIAL | EXTERNAL LAB | | REQUESTS LAC CULTURE | | | NO GROWTH REPORT STATUS | | | FINAL | | | 07/14/2013 | | + + + + +---------+ + + | Performing | Address | City/State/Zipcode | Phone Number | | Organization | | | | + +---------+ + + | EXTERNAL LAB | | | | + +---------+ + + Lactic Acid (07/08/2013 3:30 PM PDT) + + + + + [...] | LAB | | | | [address];[place] | | | | | | [address] | | | | + + + + + + + + | Specimen | + + | Blood specimen | | (specimen) | + + + +---------+ + + | Performing | Address | City/State/Zipcode | Phone Number | | Organization | | | | + +---------+ + + | EXTERNAL LAB | | | | + +---------+ + + Culture, Blood (07/08/2013 3:30 PM PDT) + + | Specimen | + + | Blood specimen | | (specimen) | + + + + + | Narrative | Performed At | + + + | Specimen Description BLOOD SPECIAL | EXTERNAL LAB | | REQUESTS RH CULTURE | | | NO GROWTH REPORT STATUS | | | FINAL | | | 07/14/2013 | | + + + + +---------+ + + | Performing | Address | City/State/Zipcode | Phone Number | | Organization | | | | + +---------+ + + | EXTERNAL LAB | | | | + +---------+ + + ECG 12 lead (07/08/2013 2:39 PM PDT) + + + + + [...] of | | | | | | 04-JUN-2013 03:01,No | | | | | | significant [...] | | | | | | editor at large SANYA DUPONT (8) | | | | | | on 07/08/2013 4:53:46 PM | | | | + + [...] | | + +---------+ + + PTT (07/08/2013 2:15 PM PDT) + + + + + + | Component | Value | Ref Range | Performed | Pathologist | | | | | At | Signature | + + + + + + | aPTT, | 25Comment: Testing | 23 - 32 seconds | EXTERNAL | | | Patient | performed at [facility];[address] | | LAB | | | | [address];[place] | | | | | | [address] | | | | + + + [...] + +---------+ + + Sedimentation rate, automated (07/08/2013 2:15 PM PDT) + + + + + + | Component | Value | Ref Range | Performed | Pathologist | | | | | At | Signature | + + + + + + | Sed Rate | 14Comment: Testing | 0 - 20 mm/Hr | EXTERNAL | | | | performed at [facility] | | LAB | | | | [address];[place], [place] | | | | | | [address] | | | | + + + + + + + + | Specimen | + + | Blood specimen | | (specimen) | + + + +---------+ + + | Performing | Address | City/State/Zipcode | Phone Number | | Organization | | | | + +---------+ + + | EXTERNAL LAB | | | | + +---------+ + + Protime INR (07/08/2013 2:15 PM PDT) + + + + + [...] | | | | | | [address];[place], [place] | | | | | | [address] | | | | + + + [...] + +---------+ + + External Lab: EVE (07/08/2013 2:15 PM PDT) + + + + + + | Component | Value | Ref Range | Performed | Pathologist | | | | | At | Signature | + + + + + + | WBC | 12.7 (H)Comment: Testing | 3.8 - 11.0 K/uL | EXTERNAL | | | | performed at [facility];[address] | | LAB | | | | [address];[place] | | | | | | [address] | | | | + + + + + + | Non- | 5.42Comment: Testing | 4.20 - 5.70 | EXTERNAL | | | Red Blood | performed at [facility];[address] | M/uL | LAB | | | Cells | [address];[place] | | | | | Counted | [id number] | | | | + + + + + + | Hemoglobin | 14.4Comment: Testing | 13.2 - 17.0 | EXTERNAL | | | | performed at [facility];[address] | g/dL | LAB | | | | [address];[place] | | | | | | [address] | | | | + + + + + + | Hematocrit, | 44.1Comment: Testing | 39.0 - 50.0 % | EXTERNAL | | | POC | performed at [facility];[address] | | LAB | | | | [address];[place] | | | | | | [address] | | | | + + + + + + | MCV | 81.2Comment: Testing | 80.0 - 100.0 fl | EXTERNAL | | | | performed at [facility];[address] | | LAB | | | | [address];[place] | | | | | | [address] | | | | + + + + + + | MCH | 26.5 (L)Comment: Testing | 27.0 - 34.0 pg | EXTERNAL | | | | performed at [facility];[address] | | LAB | | | | [address];[place] | | | | | | [address] | | | | + + + + + + | MCHC | 32.7Comment: Testing | 32.0 - 35.5 | EXTERNAL | | | | performed at [facility];[address] | g/dL | LAB | | | | [address];[place] | | | | | | [address] | | | | + + + + + + | RDW-CV | 42.9Comment: Testing | 37 - 53 fl | EXTERNAL | | | | performed at [facility];[address] | | LAB | | | | [address];[place] | | | | | | [address] | | | | + + + + + + | Platelet | 348Comment: Testing | 150 - 400 K/uL | EXTERNAL | | | Count | performed at [facility];[address] | | LAB | | | Plasma | [address];[place] | | | | | | [address] | | | | + + + + + + | MPV | 7.4Comment: Testing | fl | EXTERNAL | | | | performed at [facility];[address] | | LAB | | | | [address];[place] | | | | | | [address] | | | | + + + + + + | Differentia | AUTOMATEDComment: | | EXTERNAL | | | l Type | Testing performed at | | LAB | | | | [facility];[address];[place] [address] | | | | + + + + + + | % Segmented | 57.7Comment: Testing | % | EXTERNAL | | | | performed at [facility];[address] | | LAB | | | Neutrophils | [address];[place] | | | | | | [address] | | | | + + + + + + | % | 30.4Comment: Testing | % | EXTERNAL | | | Lymphocytes | performed at [facility];[address] | | LAB | | | | [address];[place] | | | | | | [address] | | | | + + + + + + | % Monocytes | 8.4Comment: Testing | % | EXTERNAL | | | | performed at [facility];[address] | | LAB | | | | [address];[place] | | | | | | [address] | | | | + + + + + + | % | 3.1Comment: Testing | % | EXTERNAL | | | Eosinophils | performed at [facility];[address] | | LAB | | | | [address];[place] | | | | | | [address] | | | | + + + + + + | % Basophils | 0.4Comment: Testing | % | EXTERNAL | | | | performed at [facility];[address] | | LAB | | | | [address];[place] | | | | | | [address] | | | | + + + + + + | Absolute | 7.3Comment: Testing | 1.9 - 7.4 K/uL | EXTERNAL | | | Segmented | performed at [facility];[address] | | LAB | | | Neutrophils | [address];[place] | | | | | | [address] | | | | + + + + + + | Absolute | 3.9Comment: Testing | 1.0 - 3.9 K/uL | EXTERNAL | | | Lymphocytes | performed at [facility];[address] | | LAB | | | | [address];[place] | | | | | | [address] | | | | + + + + + + | Absolute | 1.1 (H)Comment: Testing | 0 - 0.8 K/uL | EXTERNAL | | | Monocytes | performed at [facility];[address] | | LAB | | | | [address];[place] | | | | | | [address] | | | | + + + + + + | Absolute | 0.4Comment: Testing | 0 - 0.5 K/uL | EXTERNAL | | | Eosinophils | performed at [facility];[address] | | LAB | | | | [address];[place] | | | | | | [address] | | | | + + + + + + | Absolute | 0.0Comment: Testing | 0 - 0.1 K/uL | EXTERNAL | | | Basophils | performed at [facility];[address] | | LAB | | | | [address];[place], [place] | | | | | | [address] | | | | + + + + + + + + | Specimen | + + | Blood specimen | | (specimen) | + + + +---------+ + + | Performing | Address | City/State/Zipcode | Phone Number | | Organization | | | | + +---------+ + + | EXTERNAL LAB | | | | + +---------+ + + C-Reactive Protein (07/08/2013 2:15 PM PDT) + + + + + + | Component | Value | Ref Range | Performed | Pathologist | | | | | At | Signature | + + + + + + | CRP | 2.3 (H)Comment: Testing | mg/dL | EXTERNAL | | | | performed at [facility];[address] | | LAB | | | | [address];[place], [place] | | | | | | [address] | | | | + + + [...] + +---------+ + + Comprehensive Metabolic Panel (07/08/2013 2:15 PM PDT) + + + + + [...] | LAB | | | | [address];[place] | | | | | | [address] | | | | + + + + + + | K | 3.8Comment: Testing | 3.5 - 4.9 | EXTERNAL | | | | performed at [facility];[address] | mmol/L | LAB | | | | [address];[place] | | | | | | [address] | | | | + + + + + + | Cl | 103Comment: Testing | 99 - 109 mmol/L | EXTERNAL | | | | performed at [facility];[address] | | LAB | | | | [address];[place] | | | | | | [address] | | | | + + + + + + | CO2 | 30Comment: Testing | 23 - 32 mmol/L | EXTERNAL | | | | performed at [facility];[address] | | LAB | | | | [address];[place] | | | | | | [address] | | | | + + + + + + | Anion Gap | 12Comment: Testing | 5 - 20 mmol/L | EXTERNAL | | | | performed at [facility];[address] | | LAB | | | | [address];[place] | | | | | | [address] | | | | + + + + + + | Glucose, | 113 (H)Comment: Testing | 65 - 99 mg/dL | EXTERNAL | | | Fasting | performed at [facility];[address] | | LAB | | | | [address];[place] | | | | | | [address] | | | | + + + + + + | BUN | 26 (H)Comment: Testing | 8 - 25 mg/dL | EXTERNAL | | | | performed at [facility];[address] | | LAB | | | | [address];[place] | | | | | | [address] | | | | + + + + + + | Creatinine | 1.16Comment: Testing | 0.70 - 1.30 | EXTERNAL | | | | performed at [facility];[address] | mg/dL | LAB | | | | [address];[place] | | | | | | [address] | | | | + + + + + + | BUN/Creatin | 22Comment: Testing | | EXTERNAL | | | ine Ratio | performed at [facility];[address] | | LAB | | | | [address];[place] | | | | | | [address] | | | | + + + + + + | Calcium | 9.3Comment: Testing | 8.5 - 10.2 | EXTERNAL | | | | performed at [facility];[address] | mg/dL | LAB | | | | [address];[place] | | | | | | [address] | | | | + + + + + + | Protein, | 7.8Comment: Testing | 6.3 - 8.2 g/dL | EXTERNAL | | | Total | performed at [facility];[address] | | LAB | | | | [address];[place] | | | | | | [address] | | | | + + + + + + | Albumin | 3.3 (L)Comment: Testing | 3.6 - 5.0 g/dL | EXTERNAL | | | | performed at [facility];[address] | | LAB | | | | [address];[place] | | | | | | [address] | | | | + + + + + + | Globulin | 4.5Comment: Testing | 1.3 - 4.9 g/dL | EXTERNAL | | | | performed at [facility];[address] | | LAB | | | | [address];[place] | | | | | | [address] | | | | + + + + + + | A/G Ratio | 0.7 (L)Comment: Testing | 1.0 - 2.4 | EXTERNAL | | | | performed at [facility];[address] | | LAB | | | | [address];[place] | | | | | | [address] | | | | + + + + + + | Bilirubin | 0.3Comment: Testing | 0.1 - 1.5 mg/dL | EXTERNAL | | | Total | performed at [facility];[address] | | LAB | | | | [address];[place] | | | | | | [address] | | | | + + + + + + | ALP, | 85Comment: Testing | 35 - 115 U/L | EXTERNAL | | | External | performed at [facility];[address] | | LAB | | | | [address];[place] | | | | | | [address] | | | | + + + + + + | AST | 15Comment: Testing | 10 - 45 U/L | EXTERNAL | | | | performed at [facility];[address] | | LAB | | | | [address];[place] | | | | | | [address] | | | | + + + + + + | ALT | 21Comment: Testing | 10 - 65 U/L | EXTERNAL | | | | performed at [facility];[address] | | LAB | | | | [address];[place] | | | | | | [address] | | | | + + + [...] at [facility];[address] [place] [address] | | | | | | [facility];[place] [address] | | | | + + + [...] + | Diagnosis | + + | Facial droop Facial weakness | + + | Dysarthria | + + | Left-sided weakness Muscle weakness (generalized) | + + documented in this encounter
--- OUTSIDE RECORDS SUMMARY | ~2019-09-09 | XMS | Encounter Summary ---
Demographics + + + | Address | 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 | with hyperglycemia | | | | [address] | | ([facility]) | | | | [phone] | | | +--------+ + + + [...] | | 2019 | Visit | | NAVAL ARCHITECT [address] | | | | | | [place] [place], | | | | | | [place] [address] | | | | | | [phone] | | | | | | | | +--------+---------+ + + + | 09/29/ | Office | Urology | Mireya Pack, | | | 2019 | Visit | | NAVAL ARCHITECT [address] | | | | | | [place] [place], | | | | | | [place] [address] | | | | | | [phone] | | | | | | | | | | | | Toy Wild, | | | | | | [address] | | | | | | [place] [address] | | | | | | [phone] | | | | | | | | +--------+---------+ + + + documented as of this encounter Procedures + +--------+ + + + | Procedure Name | Priori | Date/Time | Associated Diagnosis | Comments | | | ty | | | | + +--------+ + + + | TSH, REFLEX FREE T4 | Routin | 03/27/2019 | Uncontrolled type | Results for this | | | e | 3:46 PM | 2 diabetes mellitus | procedure are in the | | | | PST | with hyperglycemia | results section. | | | | | (HCC) | | + +--------+ + + + | CBC WITH | Routin | 03/27/2019 | Uncontrolled type | Results for this | | DIFFERENTIAL | e | 3:46 PM | 2 diabetes mellitus | procedure are in the | | | | PST | with hyperglycemia | results section. | | | | | (HCC) | | + +--------+ + + + | HEMOGLOBIN A1C | Routin | 03/27/2019 | Uncontrolled type | Results for this | | | e | 3:46 PM | 2 diabetes mellitus | procedure are in the | | | | PST | with hyperglycemia | results section. | | | | | (HCC) | | + +--------+ + + + | CK TOTAL | Routin | 03/27/2019 | Uncontrolled type | Results for this | | | e | 3:46 PM | 2 diabetes mellitus | procedure are in the | | | | PST | with hyperglycemia | results section. | | | | | (HCC) | | + +--------+ + + + | COMPREHENSIVE | Routin | 03/27/2019 | Uncontrolled type | Results for this | | METABOLIC PANEL | e | 3:46 PM | 2 diabetes mellitus | procedure are in the | | | | PST | with hyperglycemia | results section. | | | | | (HCC) | | + +--------+ + + + documented in this encounter Results Comprehensive Metabolic Panel (03/27/2019 3:46 PM PST) [...] | | | | | | MDRD IDNY traceable | | | | | | equation.Testing | | | | | | performed at [facility];[address] | | | | | | [facility] | | | | | | Blvd;[place] [address] | | | | | | | | | | + + + + + + + + | Specimen | + + | Blood | + + + + + + + | Performing | Address | City/State/Zipcode | Phone Number | | Organization | | | | + + + + + | REFERENCE LAB | [address] | [place], [place] | [phone] | | [facility] | [address] | [address] | | | LABORATORY | | | | + + + + + | REFERENCE LAB | [address] | [place] | | | [facility] | Bl[address] | [address] | | | LABORATORY | | | [...] [facility] | | | | Blvd;[place] [address] | | LABORATORY | | + + + + + + + + | Specimen | + + | Blood | + + + + + + + | Performing | Address | City/State/Zipcode | Phone Number | | Organization | | | | + + + + + | REFERENCE LAB | [address] [place] [address] | [place], [place] | [phone] | | [facility] | Bl[address]. | [address] | | | LABORATORY | | | | + + + + + | REFERENCE LAB | [address] [place] [address] | [place], [place] | | | [facility] | Bl[address]. | [address] | | | LABORATORY | | | [...] REFERENCE | | | | performed at [facility];[address] | | LAB | | | | [place] | | [facility] | | | | Blvd;[place] [address] | | LABORATORY | | + + + + + + + + | Specimen | + + | Blood | + + + + + + + | Performing | Address | City/State/Zipcode | Phone Number | | Organization | | | | + + + + + | REFERENCE LAB | [address] [place] [address] | [place] | [phone] | | [facility] | Bl[address] | [address] | | | LABORATORY | | | | + + + + + | REFERENCE LAB | [address] [place] [address] | [place] | | | [facility] | Blvd. | [address] | | | LABORATORY | | | [...] | | | Absolute | performed at [facility];[address] | [address] | LAB | | | | [place] | | [facility] | | | | [address];[place] [address] | | LABORATORY | | + + + + + + + + | Specimen | + + | Blood | + + + + + + + | Performing | Address | City/State/Zipcode | Phone Number | | Organization | | | | + + + + + | REFERENCE LAB | [address] [place] [address] | [place], [place] | [phone] | | [facility] | Bl[address] | [address] | | | LABORATORY | | | | + + + + + | REFERENCE LAB | [address] [place] [address] | [place], [place] | | | [facility] | Bl[address]. | [address] | | | LABORATORY | | | | + + + + + Hemoglobin A1C (03/27/2019 3:46 PM [...] | | | | | performed at [facility];[address] | | | | | | [address] | | | | | | [place] [address] | | | | | | | | | | + + + + + + + + | Specimen | + + | Blood | + + + + + + + | Performing | Address | City/State/Zipcode | Phone Number | | Organization | | | | + + + + + | REFERENCE LAB | [address] | [place], [place] | [phone] | | [facility] | Bl[address] | [address] | | | LABORATORY | | | | + + + + + | REFERENCE LAB | [address] [place] [address] | [place], [place] | | | [facility] | [address] | [address] | | | LABORATORY | | | [...]
--- OUTSIDE RECORDS SUMMARY | ~2019-09-09 | XMS | Encounter Summary ---
Demographics + + + | Address | [address] [facility] [address] | | | [place] [address] | + + + | Home Phone [...] + | Sammi Kohler | ECON | [place] [address] | | + + + + + Care Team Providers + +------+ + | Care Elementary Special Education Teacher Name | Role | Phone | + +------+ + PCP | Unavailable | + +------+ + Encounter Details +--------+ + + + + | Date | Type | Department | Care Team | Description | +--------+ + + + + | 05/12/ | Emergency | [facility] | Mary Ramírez, | Paresthesias | | 2015 | | [facility] | [facility] [address] | | | | | EM[facility]ENTER | [place] [address] | | | | | [address] | [phone] | | | | | [place], [place] | | | | | | [address] | | | | | | [phone] | | | +--------+ + + + [...] ED Notes Conversion Transaction, Provider Unknown - 05/12/2014 4:49 AM PDTFormatting of this note m ight be different from the original. ED Notes by Diane Fischer RN at 05/12/14448 Author: Diane Fischer RN Service: (none) Author Type: Registered Nurse Filed: 05/12/14448 Date of Service: 05/12/14448 Status: Signed Kitchen Manager: Diane Fischer RN (Registered Nurse) Pt told a taxi will be here about 05:45 am. Diane Fischer RN 05/12/14448 onver ivana Transaction, Provider Unknown - 05/12/2014 3:22 AM PDT ED Notes by Diane Fischer RN at 05/12/14321 Author: Diane Fischer RN Service: (none) Author Type: Registered Nurse Filed: 05/12/14330 Date of Service: 05/12/14321 Status: Addendum Kitchen Manager: Diane Fischer RN (Registered Nurse) Related Notes: Original Note by Diane Fischer RN (Registered Nurse) filed at 05/12/1404 27 Diane Fischer RN 05/12/14330 onver ivana Transaction, Provider Unknown - 05/12/2014 2:34 AM PDT ED Notes by Tiffani Albarado RN at 05/12/14233 Author: Tiffani Albarado RN Service: (none) Author Type: Registered Nurse Filed: 05/12/14234 Date of Service: 05/12/14233 Status: Signed Kitchen Manager: Tiffani Albarado RN (Registered Nurse) Dr. Ramírez at BS. EVE Sneed also at BS. Pt states "I've been treated bad, I don't have an EKG, I haven't seen a doctor." Tiffani Albarado RN 05/12/14234 onver ivana Transaction, Provider Unknown - 05/12/2014 2:31 AM PDT ED Notes by Tiffani Albarado RN at 05/12/14230 Author: Tiffani Albarado RN Service: (none) Author Type: Registered Nurse Filed: 05/12/14230 Date of Service: 05/12/14230 Status: Signed Kitchen Manager: Tiffani Albarado RN (Registered Nurse) Pt requesting to speak with the charge nurse at this time. EVE Sneed notified. Tiffani Albarado RN 05/12/14230 Mary Ann MD - 05/12/2014 1:58 AM PDTFormatting of this note might be different from the or iginal. ED Provider Notes by Xander Ramírez MD at 05/12/148 Author: Xander Ramírez MD Service: (none) Author Type: Physician Filed: 05/12/14 0937 Date of Service: 05/12/14157 Status: Signed Kitchen Manager: Xander Ramírez MD (Physician) [facility] Department of Emergency Medicine 2:34 AM History of Present Illness Patient Identification Kevyn Guzman is a 58 y.o. male. Patient information was obtained from patient. History/Exam limitations: Pt is not high functioning. Patient presented to the Emergency Department by: [facility] 1723 Chief Complaint Chief Complaint Patient presents with Numbness localized to left arm and face. The patient complains of numbness in his L arm and face. The patient was recently admitted to the hospital on the for the same complaints. MRI/ MRA was negative. Patient returned on 05/08 and 05/09 for similar complaints. The patient states he has not seen Dr. Rhodes yet and has not set up an appointment. The patient did have a fall and injured his L arm/shoulder w hen he was initially evaluated on the . The patient describes the quality and location o f the symptoms as the following: tingling sensation in his L arm and left face. Today he al so says maybe some in his left side. Onset of sx again was 2000 tonight, with a constant cou rse. Care prior to arrival consisted of nothing, with no spontaneous relief. Past Medical History Diagnosis Date Diabetes [...] lungs as needed. 108 mcg/act Historical Provider Zctdb-Q-Sccrzzphnmacr (BEANO) TABS Take 150 Units by mouth [...] 100 mg by mouth nightly. Historical Provider aqaxoaloa-igqfjude-kdmuaqpyy hydroxide-simethicone Take 40 mLs by mouth daily [...] 1 tablet by mouth daily. 05/08/14 Yesica Flowers, Allergies Allergen Reactions Vitamin B12 Rash History [...] laceration or rash Neuro and psych: Yes for L arm and facial numbness No head injury, seizure, headache Endocrine/Heme/Lymph: No easy bruising or bleeding. Physical Exam BP 140/84 | Pulse 81 | Temp(Src) 97.2 F (36.2 C) (Temporal) | Resp 20 | Wt 112.038 kg ( 247 lb) | SpO2 94% Vital Sign interpretation: normal Pulse Oximetry interpretation: normal General: Alert, in no apparent distress Eyes: Non-icteric ENT: Normal external exam Neck: Supple Cardiovascular: Warm and well perfused Respiratory: No respiratory distress Abdomen: Soft and non tender Extremities: BARNARD Back: Normal ROM Skin: Color normal Warm and dry No rash Neuro: CN III-XII intact. Moves all extremities. Normal strength. He has what he reports a bnormal sensation in the L arm, hand, face and L torso. Medical Decision Making and Emergency Department Course ED Department Course I saw this patient and admitted him on the for same. MRI at that time did not show any signs of CVA however he does have many risk factors for TIA. Discussion if they should put him on coumadin at that time after the sx had resolved, but decided not to because he has fa lls at times. He returned again with similar sx on the and and he was started on cou madin the third by Dr Flowers just in case this was from a TIA. This was only a day ago and I would not expect it to be at a therapeutic level yet. Note that patients initial sx did s tart after a fall and he saray his left shoulder. He does hurt with palpation over his L sh oulder. This could be a brachial trauma or neuralgia, thougth that does not explain his init ial sx that included leg sx. The patient does have a long hx of repetitive use of the ER for various things. Though this is not likely a case conscious malingering, there is some que stion if this is actually a pathological process vs somatization . I will discuss this with neurologist as we need to have a definitive plan for this paitints recurrent sx. 2:40 AM I had a long conversation with Dr. Hatfield who said that pt does have plenty of risk factors and although first MRI was negative and second MRI could show something. He would d o one repeat MRI while pt has symptoms and if this is negative the patient does not have to return to the ER for these same recurrent symptoms. He has already been started on Coumadin yesterday and he can continue this until he follows up with Dr. Rhodes. We need to stress that the patient needs outpatient INR follow up. 2:54 AM Updated patient on discussion with the corporate communications intern neurologist and his recommendation f or the repeat MRI. Patient is agreeable with management plan. 4:32 AM Patient had another negative MRI and does not need to come to the ED for these recu rrent sx (unless something else develops) and if he does tell him to follow up with his PCP and neurologist as referred. He was started on coumadin and needs to follow up for this as w sudarshan. Most likely this is not a TIA. Will try to leave a message for social work to make sure this patient follows up with neurology. 4:40 AM Discussed the negative repeat MRI results and management plan with the pt. I have i nstructed the pt to call Dr. Rhodes, neurologist, and schedule an appointment for recheck. We discussed that if he has these sx again, he needs to follow up with his neurologist or PCP. We have discussed signs and symptoms that would necessitate an immediate return visit to [facility] ED. Pt verbalized his understanding of the discharge instructions. All questions and con cerns addressed. Patient is ready for discharge. EVE Sneed, has also left a message for social work to follow up - pt needs to have neur o appt arranged and INR rechecked as well as this all being tied back in with pcp. I am not sure if he will get it done on his own. Records Reviewed Old medical records. Nursing notes. Previous ED visits for similar complaints. Laboratory Evaluation Results None Radiology and EKG Evaluation EK Normal Sinus Rhythm. Rate: 64 bpm Normal QRS No acute ST T wave changes Interpreted by me at time of service Imaging Results MRI brain without contrast (Final result) Result time: 05/12/14 04:09:23 Preliminary result by Rad Results In Richard (05/12/14 04:09:23) Impression: No acute infarct, intracranial mass lesion, or hemorrhage. RADIA Read by Barbara Beltre MD on May 12 2014 4:09AM Final result by Rad Results In Richard (05/12/14 04:09:18) Impression: No acute infarct, intracranial mass lesion, or hemorrhage. [facility] Electronically signed by Barbara Beltre MD, FRCP on May 12 2014 4:09AM Referring Pro vider Line: [phone] ID: [id number] Narrative: EXAM: MRI BRAIN EXAM DATE: 05/12/2014 03:40 AM. CLINICAL HISTORY: Recurrent left arm and facial numbness. COMPARISON: Brain MRI from May 06, 2014. TECHNIQUE: Multiplanar, multisequence T1-weighted and fluid-sensitive MR sequences of the b rain were performed. Sequences optimized for routine evaluation. Other: None. IV Contrast: N one. FINDINGS: Brain Volume: Normal for age. Parenchyma/Dura: No masses, infarcts, or hemorrhage. Mild scattered punctate T2 hyperintens e foci again demonstrated in the subcortical, deep, and periventricular white matter of the bilateral cerebral hemispheres, most likely reflecting chronic microvascular ischemic change s in a patient of this age. Ventricles/Cisterns: Normal. No hydrocephalus. Sinuses: Moderate mucosal thickening is again noted in the left frontal sinus. The orbits a nd mastoid sinuses are unremarkable. Bones: Normal. Other: Normal flow voids are demonstrated in the carotid and basilar arteries. A normal huyen w-void is also seen in the superior sagittal sinus. ED Diagnosis Final diagnosis Paresthesias Disposition: ED Disposition Discharge Condition at discharge: Stable Follow-up Information Follow up With Details Comments Contact Info Aakash Rhodes MD Schedule an appointment as soon as possible for a visit for follow up [address] [facility] [address] Jerrell Diego DO for recheck [address] [place] [address] [facility] [address] [facility] Emergency Department If symptoms worsen or new concerns [address] [facility] [address] Discharge Medications: Discharge Medication List as of 05/12/2014 4:38 AM Procedures Additional Documentation Procedures Attending Note: Documentation assistance provided by Shannen Franklin (Scribe). Information recorded by the scribe has been reviewed and validated by me. Troy laughlin with its contents. MD Xander Pineda MD 05/12/14 0937 onversion Transactio n, Provider Unknown - 05/12/2014 1:41 AM PDT ED Notes by Shahbaz Santamaria at 05/12/14140 Author: Shahbaz Santamaria Service: (none) Author Type: Signal Maintainer Filed: 05/12/14140 Date of Service: 05/12/14140 Status: Signed Kitchen Manager: Shahbaz Santamaria (Signal Maintainer) Bed: 03 Expected date: Expected time: Means of arrival: Comments: docume nted in this encounter Plan of Treatment +--------+---------+ + + + | Date | Type | Specialty | Care Team | Description | +--------+---------+ + + + | 09/10/ | Office | Geriatric Medicine | Mireya Pack, | | | 2019 | Visit | | COUNTERINTELLIGENCE AGENT [address] [facility] | | | | | | [address] [place], | | | | | | [place] [address] | | | | | | [phone] | | | | | | | | +--------+---------+ + + + | 09/29/ | Office | Urology | Mireya Pack, | | | 2019 | Visit | | COUNTERINTELLIGENCE AGENT [address] | | | | | | [address] [place], | | | | | | [place] [address] | | | | | | [phone] | | | | | | | | | | | | Toy Wild, DO | | | | | | [address] | | | | | | [place] [address] | | | | | | [phone] | | | | | | | | +--------+---------+ + + + documented as of this encounter Procedures + +--------+ + + + | Procedure Name | Priori | Date/Time | Associated Diagnosis | Comments | | | ty | | | | + +--------+ + + + | MRI BRAIN WO | Routin | 05/12/2014 | | Results for this | | CONTRAST | e | 3:40 AM | | procedure are in the | | | | PDT | | results section. | + +--------+ + + + | ECG 12 LEAD | Routin | 05/12/2014 | | Results for this | | | e | 3:03 AM | | procedure are in the | | | | PDT | | results section. | + +--------+ + + + documented in this encounter Results MRI Brain wo Contrast (05/12/2014 3:40 AM PDT) + + | Specimen | + + | | + + + + + | Impressions | Performed At | + + + | No acute infarct, intracranial mass lesion, or hemorrhage. | | | RADIA Electronically signed by Barbara Beltre MD, BOLA | | | on May 12 2014 4:09AM Referring Provider Line: [phone] ID: | | | [id number] | | + + + + + + | Narrative | Performed At | + + + | EXAM: MRI BRAIN EXAM DATE: 05/12/2014 03:40 AM. CLINICAL | | | HISTORY: Recurrent left arm and facial numbness. COMPARISON: Brain | | | MRI from May 06, 2014. TECHNIQUE: Multiplanar, multisequence | | | T1-weighted and fluid-sensitive MR sequences of the brain were | | | performed. Sequences optimized for routine evaluation. Other: None. IV | | | Contrast: None. FINDINGS: Brain Volume: Normal for age. | | | Parenchyma/Dura: No masses, infarcts, or hemorrhage. Mild scattered | | | punctate T2 hyperintense foci again demonstrated in the subcortical, | | | deep, and periventricular white matter of the bilateral cerebral | | | hemispheres, most likely reflecting chronic microvascular ischemic | | | changes in a patient of this age. Ventricles/Cisterns: Normal. No | | | hydrocephalus. Sinuses: Moderate mucosal thickening is again noted | | | in the left frontal sinus. The orbits and mastoid sinuses are | | | unremarkable. Bones: Normal. Other: Normal flow voids are | | | demonstrated in the carotid and basilar arteries. A normal flow-void | | | is also seen in the superior sagittal sinus. | | + + + + + | Procedure Note | + + | Joaquin Ramos Conversion - 09/20/2018 10:29 PM PDT EXAM:MRI BRAIN EXAM DATE: 05/12/2014 | | 03:40 AM. CLINICAL HISTORY: Recurrent left arm and facial numbness. COMPARISON: Brain | | MRI from May 06, 2014. TECHNIQUE: Multiplanar, multisequence T1-weighted and | | fluid-sensitive MR sequences of the brain were performed. Sequences optimized for | | routine evaluation. Other: None. IV Contrast: None. FINDINGS:Brain Volume: Normal for | | age. Parenchyma/Dura: No masses, infarcts, or hemorrhage. Mild scattered punctate T2 | | hyperintense foci again demonstrated in the subcortical, deep, and periventricular white | | matter of the bilateral cerebral hemispheres, most likely reflecting chronic | | microvascular ischemic changes in a patient of this age. Ventricles/Cisterns: Normal. No | | hydrocephalus. Sinuses: Moderate mucosal thickening is again noted in the left frontal | | sinus. The orbits and mastoid sinuses are unremarkable. Bones: Normal. Other: Normal | | flow voids are demonstrated in the carotid and basilar arteries. A normal flow-void is | | also seen in the superior sagittal sinus. IMPRESSION: No acute infarct, intracranial | | mass lesion, or hemorrhage. RADIA Electronically signed by Barbara Beltre MD, | | FRCP on May 12 2014 4:09AM Referring Provider Line: [phone] ID: [id number] | |microvascular ischemic changes in a patient of this age. | | | |Ventricles/Cisterns: Normal. No hydrocephalus. | | | |Sinuses: Moderate mucosal thickening is again noted in the left frontal sinus. The orbits a nd mastoid sinuses are unremarkable. | | | |Bones: Normal. | | | |Other: Normal flow voids are demonstrated in the carotid and basilar arteries. A normal huyen w-void is also seen in the superior sagittal sinus. | | | |IMPRESSION: | | | | | |No acute infarct, intracranial mass lesion, or hemorrhage. | | | |RADIA | | | | | | Electronically signed by Barbara Beltre MD, FRCP on May 12 2014 4:09AM Referring Pro vider Line: [id number] ID: [id number] | + + ECG 12 lead (05/12/2014 3:03 AM PDT) + + + + + [...] of | | | | | | 09-MAY-2014 11:29,No | | | | | | significant [...] | | | | | (4) on 05/12/2014 7:12:09 | | | | | | AM | | | | + + + + + + + + | Specimen | + + | | + + + + + | Narrative | Performed At | + + + | Historically converted procedure from [facility] Epic environment | EXTERNAL LAB | + [...]
--- OUTSIDE RECORDS SUMMARY | ~2019-09-09 | XMS | Encounter Summary ---
Demographics + + + | Address | [address] | | | [place] [address] | + + + | Home Phone [...] Sammi Kohler | ECON | [place] [address] | | + + + + + Care Team Providers + +------+ + | Care Foot Roentgenologist Name | Role | Phone | + [...] + + | 12/13/ | Emergency | [facility] | Norah Barker MD | Palpitations | | 2019 | | MEDICAL CENTER | [address] | (Primary Dx) | | | | EMERGENCY CENTER | [place] [address] | | | | | [address] | [phone] | | | | | [place], [place] | | | | | | [address] | | | | | | [phone] | | | +--------+ + + + [...] sent through Care Everywhere.Heart Palpitati ons, Understanding (Togolese)documented in this encounter Medications at Time of [...] | 60 | 4 | 11/08/19 | 06/19/202 | | (FLOMAX) 0.4 mg CAPS | mouth 2 times daily. | capsule | | 19 | 0 | + + + +---------+ + + documented as of this encounter ED Notes Norah Barker MD - 12/13/2018 10:17 PM PST [facility] Department of Emergency Medicine History of Present Illness Patient Identification Norah Gr is a 62 y.o. male. Patient information was obtained from patient History/Exam limitations:none ED06/ED06 Primary Care Doctor: Mireya Pack NP Chief Complaint Chief Complaint Patient presents with Chest Pain hx of a fib Norah Gr is a 62 y.o. male [...] type II DVT (deep venous thrombosis) ([facility]) 03/29/2018 Facial droop 07/08/2013 GIB (gastrointestinal bleeding) 03/02/[address] Nur, rectal ulcers, nodule of GE junction Hypercholesterolemia 07/08/2013 Hyperlipidemia Hypertension rn long term care (current) use of 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 [...] MD; Location: [facility]; Service: Gastroen terology; Laterality: N/A; [...] FROZEN SECTION; Surgeon: Sy murcia MD; Location: [facility] OR; Service: Plastics; Laterality: Left; forearm SKIN BIOPSY SKIN CANCER EXCISION Left 10/10/2012 Procedure: EXCISION - SKIN CANCER; Surgeon: Sy Fierro MD; Location: [facility]; Service: Plastics; Laterality: Left; upper arm and upper back w/frozen section UPPER GASTROINTESTINAL ENDOSCOPY UPPER GASTROINTESTINAL ENDOSCOPY 03/03/2013 Procedure: ESOPHAGOGASTRODUODENOSCOPY; Surgeon: Howie Gibson MD; Location: [facility]; Se rvice: Gastroenterology; Laterality: N/A; [...] mouth 2 times daily. 11/07/18 Yes Mireya amlave NP ARIPiprazole (ABILIFY) 5 mg tablet Take [...] Department Course ED Department Course: 22:17 Norah Gr is a 62 y.o. male [...] Value Ref Range Date/Time Comprehensive Metabolic Panel [[id number]] (Abnormal) Collected: 12/13/182199 Order Status: Completed Specimen: [...] Estimated GFR >60 >60 mL/min/1.73m2 Troponin I [[id number]] Collected: 12/13/182199 Order Status: Completed Specimen: Blood Updated: 12/13/182228 Troponin I 0.024 0.00 - 0.04 ng/mL CBC with Differential [[id number]] (Abnormal) Collected: 12/13/182199 Order Status: Completed Specimen: [...] Absolute 0.12 0.00 - 0.10 K/uL PTT [[id number]] Collected: 12/13/182199 Order Status: Completed Specimen: Blood Updated: 12/13/182223 PTT 27 23 - 32 seconds Protime INR [[id number]] Collected: 12/13/182199 Order Status: Completed Specimen: Blood Updated: 12/13/182219 INR 0.9 Lab Interpretation I have reviewed lab results from the emergency department workup and abnormal results have been posted to the chart. Pertinent positive and negative findings have been addressed appr opriately. Radiology and ECG Evaluation ECG from 2144: Sinus rhythm at 77 bpm. OH, QRS, and axis are normal. No ST [...] Practitioner - Primary Care Contact information: Nirmal S[address]NC[address] [facility] [facility] [id number] [facility]. Specialty: Emergency Medicine Why: If symptoms worsen Contact information: [address] [facility] [phone] Discharge Medications: ED Prescriptions None This document has been prepared with a voice recognition system. The possibility of "sound alike" nut and bolt assembler errors, addition and/or deletions may occur. If there is any question p lease contact the author of the document. Procedures Norah Barker MD 12/13/18 7631 documented in this enc ounter Plan of Treatment +--------+---------+ + + + | Date | Type | Specialty | Care Team | Description | +--------+---------+ + + + | 09/10/ | Office | Geriatric Medicine | Mierya Pack, | | | 2019 | Visit | | [facility]N [address] | | | | | | [address] [place], | | | | | | [place] [address] | | | | | | [phone] | | | | | | | | +--------+---------+ + + + | 09/29/ | Office | Urology | Mireya Pack, | | | 2019 | Visit | | [facility] [address] | | | | | | [address] [place], | | | | | | [place] [address] | | | | | | [phone] | | | | | | | | | | | | Toy Wild, DO | | | | | | [address] | | | | | | [place] [address] | | | | | | [phone] | | | | | | | [...] | | n - | | | 12/13/ | | | 2019 | | | 9:46 | | | [...] | | | ON?11/ | | | | | | 9 | | | 21:45? | | | GR, | | | NORAH | | | | | | M?MRN: | | | | | | [id number] | | | [id number] | | | riteri | | | [...] | | [facility] | | | [place] | | | [place] | | | [...] | | [facility] | | | [place] | | | [place] | | | [...] 0.024Comment: 0.04 | 0.00 - 0.04 | [facility] [...] at | | | | | | [facility] | | | | | | [address];[place] [address] | | | | + + + + + + + + | Specimen | + + | Blood | + + + + + + + | Performing | Address | City/State/Zipcode | Phone Number | | Organization | | | | + + + + + | [facility] | [address] | [place] [address] | [phone] | + + + + + PTT (12/13/2018 10:00 PM PST) + + + + + + | Component | Value | Ref Range | Performed | Pathologist | | | | | At | Signature | + + + + + + | PTT | 27Comment: Testing | 23 - 32 seconds | [facility] | | | | performed at [facility] | | LABORATORY | | | | [facility];[place], [place] | | | | | | [address] | | | | + + + + + + + + | Specimen | + + | Blood | + + + + + + + | Performing | Address | City/State/Zipcode | Phone Number | | Organization | | | | + + + + + | [facility] | [address] | [place] [address] | [phone] | + + + + + Protime INR (12/13/2018 10:00 PM PST) + + + + + + | Component | Value | Ref Range | Performed | Pathologist | | | | | At | Signature | + + + + + + | INR | 0.9Comment: REFERENCE | | [facility] | | | | RANGE:0.9 - [...] | | | | performed at [facility];[address] | | | | | | [address];[place] | | | | | | [address] | | | | + + + + + + + + | Specimen | + + | Blood | + + + + + + + | Performing | Address | City/State/Zipcode | Phone Number | | Organization | | | | + + + + + | [facility] | [address] | [place] [address] | [phone] | + + + + + Comprehensive [...] | | | | performed at [facility];[address] | | | | | | [facility];[place], [place] | | | | | | [address] | | | | + + + + + + + + | Specimen | + + | Blood | + + + + + + + | Performing | Address | City/State/Zipcode | Phone Number | | Organization | | | | + + + + + | [facility] | [address] | [place] [address] | [phone] | + + + + + CBC [...] | | Absolute | performed at [facility];[address] | K/uL | LABORATORY | | | | [address];[place] | | | | | | [address] | | | | + + + + + + + + | Specimen | + + | Blood | + + + + + + + | Performing | Address | City/State/Zipcode | Phone Number | | Organization | | | | + + + + + | [facility] | [address] | [place] [address] | [phone] | + + + + + ECG [...] | | | | | | (500), desk editor Rodney, | | | | | [...] | | | 324 mg, Oral, ONCE, [facility] 12/13/18 | | 19 10:21 | | | | | at 2205, For 1 dose, Unless given | | PM PST | | | | | prior to arrival, | | | | | | + +--------+ +--------+------+------+ +---+---+ | | | +---+---+ documented in this encounter
--- OUTSIDE RECORDS SUMMARY | ~2019-09-09 | XMS | Encounter Summary ---
Demographics + + + | Address | [address] | | | [place] [address] | + + + | Home Phone [...] | Sammi Kohler | ECON | [place] [address] | | + + + + + Care Team Providers + +------+ + | Care Chief Relay Tester Name | Role | Phone | + +------+ + | Miryea Pack NP | PCP | | + +------+ + Encounter Details +--------+ + + + + | Date | Type | Department | Care Team | Description | +--------+ + + + + | 08/25/ | Telephone | [facility] | Jeni Dean, | | | 2019 | | CENTER | LOAN ASSISTANT [address] | | | | | ANTICOAGULATION | [place] [address] | | | | | [facility] | [phone] | | | | | [address] | | | | | | [place], [place] | | | | | | [address] | | | | | | [phone] | | | +--------+ + + + [...] 08/26/2019 9:42 AM PDTTC to [facility] at [facility]. Re viewed my concerns with patient no taking warfarin as directed. He will have home health nu rse do medication management and fill pill box by tomorrow. Recheck INR as scheduled in 1 [address] [place]. documented in this e ncounter Plan of Treatment +--------+---------+ + + + | Date | Type | Specialty | Care Team | Description | +--------+---------+ + + + | 09/10/ | Office | Geriatric Medicine | Mireya Pack, | | | 2019 | Visit | | PHOTOGRAPHER [facility]ILL [address] | | | | | | [address] [place], | | | | | | [place] [address] | | | | | | [phone] | | | | | | | | +--------+---------+ + + + | 09/29/ | Office | Urology | Mireya Pack, | | | 2019 | Visit | | [facility] [address] | | | | | | [address] [place], | | | | | | [place] [address] | | | | | | [phone] | | | | | | | | | | | | Toy Wild, DO | | | | | | [address] | | | | | | [place] [address] | | | | | | [phone] | | | | | | | | +--------+---------+ + + + documented as of this encounter Visit Diagnoses Not on filedocumented in this encounter"
--- OUTSIDE RECORDS SUMMARY | ~2019-09-09 | XMS | Encounter Summary ---
Demographics + + + | Address | [address] | | | [place] [address] | + + + | Home Phone [...] Sammi Kohler | ECON | [place] [address] | | + + + + + Care Team Providers + +------+ + | Care Golf Ball Winder Name | Role | Phone | [...] + + | 11/22/ | Telephone | [facility] | Ashley Scales, | [facility] | | 2019 | | COP | RN | | | | | MANAGEMENT [address] | | | | | | [address] | | | | | | [place] | | | | | | [address] | | | | | | [phone] | | | +--------+ + + + [...] | | 2019 | Visit | | [facility] [address] | | | | | | [address] [place], | | | | | | [place] [address] | | | | | | [phone] | | | | | | | | +--------+---------+ + + + | 09/29/ | Office | Urology | Mireya Pack, | | | 2019 | Visit | | [facility] [address] | | | | | | [address] [place], | | | | | | [place] [address] | | | | | | [phone] | | | | | | | | | | | | Toy Wild, DO | | | | | | [address] | | | | | | [place] [address] | | | | | | [phone] | | | | | | | | +--------+---------+ + + + documented as of this encounter Visit Diagnoses Not on filedocumented in this encounter
--- OUTSIDE RECORDS SUMMARY | ~2019-09-09 | XMS | Encounter Summary ---
Demographics + + + | Address | [address] | | | [place] [address] | + + + | Home Phone [...] + | Sammi Kohler | ECON | [place] [address] | | + + + + + Care Team Providers + +------+ + | Care Deportation Officer Name | Role | Phone | + +------+ + PCP | Unavailable | + +------+ + Encounter Details +--------+ + + + + | Date | Type | Department | Care Team | Description | +--------+ + + + + | 11/25/ | Emergency | [facility] | Zach Tena, | Non-cardiac chest | | 2014 | | MEDICAL CENTER | [address] | pain; Vertigo | | | | EMERGENCY CENTER | [place] [address] | | | | | [address] | [phone] | | | | | [place], [place] | | | | | | [address] | | | | | | [phone] | | | +--------+ + + + [...] encounter ED Notes Zach Tena MD - 11/25/2013 3:02 PM PDTFormatting of this note might be different fro m the original. ED Provider Notes by Zach Tena MD at 11/25/13 0775 Author: Zach Tena MD Service: Emergency Department Author Type: Physician Filed: 11/29/13 1426 Date of Service: 11/25/13 8698 Status: Signed Painter: Zach Tena MD (Physician) [facility] Department of Emergency Medicine 3:02 PM History of Present Illness Patient Identification Norah Gr is a 57 y.o. male. Patient information was obtained from patient and EMS personnel. History/Exam limitations: none. Patient presented to the Emergency Department by: [facility] 1724 Chief Complaint Chief Complaint Patient presents with Chest Pain Dizziness Hypertension This is a 57 y.o. male with chief complaint of mid sternal and L sided chest pain. Other as sociated complaints include dizziness and hypertension. Onset of symptoms was 6:00 AM, with a constant course since that time. Patient states he feels like the room is spinning and his heart is "fluttering". The symptoms are currently described to be of moderate severity. The symptoms are improved by nothing and worsened by palpation. Care prior to arrival consisted of Asprin and Nitro, with no relief. Other significant positive and negative factors include: Positive associated with: SOB Negative associated with: diaphoresis, nausea, or emesis Other significant factors in the PMH are noted and include: Diabetes mellitus type II, hype rtension, anxiety, ARF, COPD, CAD. PCP: JERRELL GUTIÉRREZ Past Medical History Diagnosis [...] - CHOLECYSTECTOMY; Surgeon: Jevon Vargas DO; Location: [facility] MAIN OR; Service: General; Laterality: N/A; Abdominal surgery Cholecystectomy Skin cancer excision 10/10/2012 Procedure: EXCISION - SKIN CANCER; Surgeon: Sy Fierro MD; Location: [facility] MAIN OR ; Service: Plastics; Laterality: Left; upper arm and upper back w/frozen section Esophagogastroduodenoscopy 03/03/2013 Procedure: ESOPHAGOGASTRODUODENOSCOPY; Surgeon: Howie Gibson MD; Location: [facility] ENDOSCOPY; S ervice: Gastroenterology; Laterality: N/A; Colonoscopy 03/04/2013 Procedure: COLONOSCOPY; Surgeon: Howie Gibson MD; Location: [facility] ENDOSCOPY; Service: Gastroe nterology; Laterality: N/A; Upper gastrointestinal endoscopy Skin biopsy Hernia repair 07/03/2013 Procedure: LAPAROSCOPIC - HERNIA - INCISIONAL; Surgeon: Jevon Vargas DO; Location: [facility] MAIN OR; Service: General; Laterality: [...] into the skin nightly. H istorical Provider etqkethfd-lckvambr-xsblmhotf hydroxide-simethicone Take 40 mLs by mouth daily [...] on file Social History Narrative Lives in care home, IADL, full code Family History Problem Relation Age of Onset Heart disease Father Heart disease Sister Diabetes type II Sister Heart Problems Brother Review of Systems Constitutional: Negative. HENT: Negative. Eyes: Negative. Respiratory: Positive for shortness of breath. Cardiovascular: Positive for chest pain. Hypertension Gastrointestinal: Negative. Genitourinary: Negative. Skin: Negative. Neurological: Positive for dizziness. Endo/Heme/Allergies: Negative. All other systems reviewed and are negative. Physical Exam BP 137/84 | Pulse 80 | Temp(Src) 97.5 F (36.4 C) (Oral) | Resp 20 | SpO2 96% Vitals: WNL Pulse Oximetry Interpretation: Normal General: Alert, [...] and Emergency Department Course ED Department Course 3:23 PM Pt presents to the ED complaining of CP, dizziness, SOB, and hypertension. The roberto ent has an unremarkable exam. I feel that the list of possible emergent diagnoses that the p atient requires an evaluation for includes (but is not limited to) pneumonia, acute CT, elec trolyte imbalance. I believe that laboratory testing and further diagnostic testing is neces sharonda to ensure that there is no acute emergent cause of the symptoms. 3:24 PM. Troponin reviewed, 0.02. 3:41 PM. Cardiac panel reviewed. 4:14 PM. Chest XR reviewed, nl. 5:24 PM. Patient reevaluation. Patient felt like he was somewhat improved. Reviewed recent MRI and cardiac cath. I do not feel any repeat testing is indicated at this time. I have dis cussed my clinical impression and treatment plan with the pt. We have specifically discussed the signs and symptoms that would constitute the need for an immediate return to the ED, th e importance of continued outpatient f/u and the importance of compliance with the d/c instr uctions. I have answered any questions that the [...] mL (not administered) sodium chloride 0.9 % bolus 1,000 mL (not administered) sodium chloride 0.9 % infusion (not administered) diazepam (VALIUM) injection 5 mg (not administered) Filed Vitals: 11/25/13 1506 11/25/13 1600 11/25/13 1700 BP: 137/84 161/95 157/87 Pulse: 80 72 Temp: 97.5 F (36.4 C) TempSrc: Oral Resp: 20 SpO2: 96% 95% 96% Records Reviewed Old medical records. Nursing notes. Previous ED visits for similar and unrelated complaints. Patient has L heart cath on 10/15/13 and a MRI/MRA four months ago. Laboratory Evaluation Results Procedure Component Value Ref Range Date/Time Cardiac Panel [[id number]] (Abnormal) Collected: 11/25/13 1455 Order Status: Completed Updated: 11/25/13 1532 WBC 9.9 3.8 - 11.0 K/uL RBC 5.21 4.20 - 5.70 M/uL HGB 14.1 13.2 - 17.0 g/dL HCT 41.3 39.0 - 50.0 % MCV 79.3 (L) 80.0 - 100.0 fl MCH 27.0 27.0 - 34.0 pg MCHC 34.1 32.0 - 35.5 g/dL RDW SD 40.7 37 - 53 fl PLT 306 150 - 400 K/uL MPV 7.3 fl DIFF TYPE AUTOMATED NEUTROPHILS 56.1 % LYMPHOCYTES 31.6 % MONOCYTES 8.8 % EOSINOPHILS 2.7 % BASOPHILS 0.8 % NEUTROPHILS ABS 5.5 1.9 - 7.4 K/uL LYMPHOCYTES ABS 3.1 [...] AGAP 10 5 - 20 mmol/L GLUCOSE 172 (H) 65 - 99 mg/dL BUN 16 8 - 25 mg/dL CREATININE 1.20 0.70 - 1.30 mg/dL BUN/CREAT 13 CALCIUM 9.1 8.5 - 10.2 mg/dL TOTAL PROTEIN 7.7 6.3 - 8.2 g/dL Albumin 3.6 3.6 - 5.0 g/dL GLOBULIN 4.1 1.3 - 4.9 g/dL A/G 0.9 (L) 1.0 - 2.4 TBIL 0.3 0.1 - 1.5 mg/dL ALK PHOS 98 35 - 115 U/L AST 31 10 - 45 U/L ALT 29 10 - 65 U/L EGFR >60 >60 mL/min/1.73m2 CPK 185 55 - 400 U/L INR 1.0 APTT 24 23 - 32 seconds MMB 5.0 (H) 0.5 - 3.6 ng/mL CK-MB Index 2.7 POC cardiac troponin [[id number]] Collected: 11/25/13 1510 Order Status: Completed Updated: 11/25/13 1524 POC CARDIAC TROPONIN 0.02 0.00 - 0.10 ng/mL I personally reviewed the lab results and they have been posted to the chart. Pertinent po sitive and negative findings have been addressed appropriately. Radiology and EKG Evaluation Imaging Results XR Chest AP and Lateral (Final result) Result time: 11/25/13 16:08:20 Final result by Rad Results In Richard (11/25/13 16:03:56) Impression: 1. No acute cardiopulmonary process. Narrative: NORAH GR 1955 57 years Male XR CHEST 2 VIEW FRONTAL AND LATERAL 11/25/2013 3:40 PM INDICATION: Chest pain COMPARISON: 11/06/13 TECHNIQUE: Two view chest, PA and lateral views FINDINGS: The cardiomediastinal contours are normal. There is no mediastinal widening or s hift. No pneumothorax or effusion. The lungs are clear with no focal consolidation or pulm onary nodules. 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 15:00 Normal sinus rhythm. No ectopy or blocks. Intervals and segments are normal. Nonspecific T wave abnormality. Reviewed and interpreted by me independantly and contemporaneously. Zach Tena ED Diagnoses Final diagnoses Non-cardiac chest pain Vertigo Disposition: ED Disposition Discharge Condition at discharge: Stable Follow-up Information Follow up With Details Comments Contact [facility] Emergency Department If symptoms worsen [address] [facility] [address] Jerrell Gutiérrez DO Schedule an appointment as soon as possible for a visit [facility] [address] Discharge Medications: New Prescriptions MECLIZINE (ANTIVERT) 25 MG TABLET Take 1 tablet by mouth 3 (three) times daily as neede d (vertigo). Procedures Additional Documentation Procedures Attending Note: Documentation assistance provided by Emili Flores (Scribe). Information recorded by the scribe has been reviewed and validated by me. I ag ree with its contents. MD Zach Church MD 11/29/13 1426 onversion Transacti on, Provider Unknown - 11/25/2013 2:58 PM PDTFormatting of this note might be different fro m the original. ED Notes by Tatum Pratt RN at 11/25/131457 Author: Tatum Pratt RN Service: (none) Author Type: Registered Nurse Filed: 11/25/138 Date of Service: 11/25/131457 Status: Signed Painter: Tatum Pratt RN (Registered Nurse) Bed: 08 Expected date: Expected time: Means of arrival: Comments: onver ivana Transaction, Provider Unknown - 11/25/2013 2:48 PM PDT ED Notes by Tatum Pratt RN at 11/25/131447 Author: Tatum Pratt RN Service: (none) Author Type: Registered Nurse Filed: 11/25/13 1449 Date of Service: 11/25/131447 Status: Signed Painter: Tatum Pratt RN (Registered Nurse) Pt [facility], having CP 6/10, radiating into back. 3 NTG without relief. Pt has hx of HTN, angina. Sinus arrythmia. Tatum Pratt RN 11/25/131448 docume nted in this encounter Plan of Treatment +--------+---------+ + + + | Date | Type | Specialty | Care Team | Description | +--------+---------+ + + + | 09/10/ | Office | Geriatric Medicine | Mireya Pack, | | | 2019 | Visit | | [employer] [facility] [address] | | | | | | [address] [place], | | | | | | [place] [address] | | | | | | [phone] | | | | | | | | +--------+---------+ + + + | 09/29/ | Office | Urology | Mireya Pack, | | | 2019 | Visit | | [facility] [address] | | | | | | [address] [place], | | | | | | [place] [address] | | | | | | [phone] | | | | | | | | | | | | Toy Wild, DO | | | | | | [address] | | | | | | [place] [address] | | | | | | [phone] | | | | | | | | +--------+---------+ + + + documented as of this encounter Procedures + +--------+ + + + | Procedure Name | Priori | Date/Time | Associated Diagnosis | Comments | | | ty | | | | + +--------+ + + + | XR CHEST 2 VIEWS | Routin | 11/25/2013 | | Results for this | | | e | 3:40 PM | | procedure are in the | | | | PDT | | results section. | + +--------+ + + + | ECG 12 LEAD | Routin | 11/25/2013 | | Results for this | | | e | 3:00 PM | | procedure are in the | | | | PDT | | results section. | + +--------+ + + + | HISTORICAL LAB PANEL | Routin | 11/25/2013 | | Results for this | | RESULT | e | 2:55 PM | | procedure are in the | | | | PDT | | results section. | + +--------+ + + + documented in this encounter Results XR Chest 2 Vws (11/25/2013 3:40 PM PDT) + + | Specimen | + + | | + + + + + | Impressions | Performed At | + + + | 1. No acute cardiopulmonary process. | | + + + + + + | Narrative | Performed At | + + + | NORAH Emre GR 1955 57 years Male XR CHEST 2 VIEW FRONTAL | | | AND LATERAL 11/25/2013 3:40 PM INDICATION: Chest pain | | | COMPARISON: 11/06/13 TECHNIQUE: Two view chest, PA and lateral | | | views FINDINGS: The cardiomediastinal contours are normal. There | | | is no mediastinal widening or shift. No pneumothorax or effusion. | | | The lungs are clear with no focal consolidation or pulmonary | | | nodules. There is moderate degenerative disc disease of the thoracic | | | spine. | | + + + + + | Procedure Note | + + | Richard, Rad Conversion - 09/21/2018 3:31 PM PDT NORAH Andrea [id number] years MaleXR | | CHEST 2 VIEW FRONTAL AND PQIGCFV1911/25/2013 3:40 PM INDICATION: Chest pain COMPARISON: | | 11/06/13 TECHNIQUE: Two view chest, PA and lateral views FINDINGS: The cardiomediastinal | | contours are normal. There is no mediastinal widening or shift. No pneumothorax or | | effusion. The lungs are clear with no focal consolidation or pulmonary nodules. There | | is moderate degenerative disc disease of the thoracic spine. IMPRESSION: 1. No acute | | cardiopulmonary process. | | 4:03 PM | |COMPARISON: 11/06/13 | | | |TECHNIQUE: Two view chest, PA and lateral views | | | |FINDINGS: The cardiomediastinal contours are normal. There is no mediastinal widening or s hift. No pneumothorax or effusion. The lungs are clear with no focal consolidation or pulm onary nodules. There is moderate degenerative disc disease of the | |thoracic spine. | | | |IMPRESSION: | |1. No acute cardiopulmonary process. | | | | | + + ECG 12 lead (11/25/2013 3:00 PM PDT) + + + + + [...] of | | | | | | 11-NOV-2013 | | | | | | 08:46,Nonspecific T wave | | | | | | abnormality, improved | | | | | | in [...] | | | | | ONLY, -COMPUTER ([id number]), | | | | | | assistant film editor Mel Burrell | | | | | | (18) on 11/25/2013 | | | | | | 6:19:43 PM | | | | + + + + + + + + | Specimen | + + | | + + + + + | Narrative | Performed At | + + + | Historically converted procedure from [facility] environment | EXTERNAL LAB | + + + + +---------+ + + | Performing | Address | City/State/Zipcode | Phone Number | | Organization | | | | + +---------+ + + | EXTERNAL LAB | | | | + +---------+ + + HISTORICAL LAB PANEL RESULT (11/25/2013 2:55 PM PDT) + + + + + -+ | Component | Value | Ref Range | Performed | Pathologist | | | | | At | Signature | + + + + + -+ | WBC | 9.9Comment: Testing | 3.8 - 11.0 K/uL | EXTERNAL | | | | performed at [facility] [place] [place];[address] | | LAB | | | | [address];[place] | | | | | | [address] | | | | + + + + + -+ | Non- | 5.21Comment: Testing | 4.20 - 5.70 | EXTERNAL | | | Red Blood | performed at [facility] [place] [place];[address] | M/uL | LAB | | | Cells | [address];[place] | | | | | Counted | [address] | | | | + + + + + -+ | Hemoglobin | 14.1Comment: Testing | 13.2 - 17.0 | EXTERNAL | | | | performed at [facility] [place] [place];[address] | g/dL | LAB | | | | [address];[place] | | | | | | [address] | | | | + + + + + -+ | Hematocrit, | 41.3Comment: Testing | 39.0 - 50.0 % | EXTERNAL | | | POC | performed at [facility] [place] [place];[address] | | LAB | | | | [address];[place] | | | | | | [address] | | | | + + + + + -+ | MCV | 79.3 (L)Comment: Testing | 80.0 - 100.0 fl | EXTERNAL | | | | performed at [facility] [place] [place];[address] | | LAB | | | | [address];[place] | | | | | | [address] | | | | + + + + + -+ | MCH | 27.0Comment: Testing | 27.0 - 34.0 pg | EXTERNAL | | | | performed at [facility] [place] [place];[address] | | LAB | | | | [address];[place] | | | | | | [address] | | | | + + + + + -+ | MCHC | 34.1Comment: Testing | 32.0 - 35.5 | EXTERNAL | | | | performed at [facility] [place] [place];[address] | g/dL | LAB | | | | [address];[place] | | | | | | [address] | | | | + + + + + -+ | RDW-CV | 40.7Comment: Testing | 37 - 53 fl | EXTERNAL | | | | performed at [facility] [place] [place];[address] | | LAB | | | | [address];[place] | | | | | | [address] | | | | + + + + + -+ | Platelet | 306Comment: Testing | 150 - 400 K/uL | EXTERNAL | | | Count | performed at [facility] [place] [place];[address] | | LAB | | | Plasma | [address];[place] | | | | | | [address] | | | | + + + + + -+ | MPV | 7.3Comment: Testing | fl | EXTERNAL | | | | performed at [facility] [place] [place];[address] | | LAB | | | | [address];[place] | | | | | | [address] | | | | + + + + + -+ | Differentia | AUTOMATEDComment: | | EXTERNAL | | | l Type | Testing performed at | | LAB | | | | [facility] [place] [place];[address];[place] [address] | | | | + + + + + -+ | % Segmented | 56.1Comment: Testing | % | EXTERNAL | | | | performed at [facility] [place] [place];[address] | | LAB | | | Neutrophils | [address];[place] | | | | | | [address] | | | | + + + + + -+ | % | 31.6Comment: Testing | % | EXTERNAL | | | Lymphocytes | performed at [facility] [place] [place];[address] | | LAB | | | | [address];[place] | | | | | | [address] | | | | + + + + + -+ | % Monocytes | 8.8Comment: Testing | % | EXTERNAL | | | | performed at [facility] [place] [place];[address] | | LAB | | | | [address];[place] | | | | | | [address] | | | | + + + + + -+ | % | 2.7Comment: Testing | % | EXTERNAL | | | Eosinophils | performed at [facility] [place] [place];[address] | | LAB | | | | [address];[place] | | | | | | [address] | | | | + + + + + -+ | % Basophils | 0.8Comment: Testing | % | EXTERNAL | | | | performed at [facility] [place] [place];[address] | | LAB | | | | [address];[place] | | | | | | [address] | | | | + + + + + -+ | Absolute | 5.5Comment: Testing | 1.9 - 7.4 K/uL | EXTERNAL | | | Segmented | performed at [facility] [place] [place];[address] | | LAB | | | Neutrophils | [address];[place] | | | | | | [address] | | | | + + + + + -+ | Absolute | 3.1Comment: Testing | 1.0 - 3.9 K/uL | EXTERNAL | | | Lymphocytes | performed at [facility] [place] [place];[address] | | LAB | | | | [address];[place] | | | | | | [address] | | | | + + + + + -+ | Absolute | 0.9 (H)Comment: Testing | 0 - 0.8 K/uL | EXTERNAL | | | Monocytes | performed at [facility] [place] [place];[address] | | LAB | | | | [address];[place] | | | | | | [address] | | | | + + + + + -+ | Absolute | 0.3Comment: Testing | 0 - 0.5 K/uL | EXTERNAL | | | Eosinophils | performed at [facility] [place] [place];[address] | | LAB | | | | [address];[place] | | | | | | [address] | | | | + + + + + -+ | Absolute | 0.1Comment: Testing | 0 - 0.1 K/uL | EXTERNAL | | | Basophils | performed at [facility] [place] [place];[address] | | LAB | | | | [address];[place] | | | | | | [address] | | | | + + + + + -+ | Na | 139Comment: Testing | 135 - 143 | EXTERNAL | | | | performed at [facility] [place] [place];[address] | mmol/L | LAB | | | | [address];[place] | | | | | | [address] | | | | + + + + + -+ | K | 3.8Comment: Testing | 3.5 - 4.9 | EXTERNAL | | | | performed at [facility] [place] [place];[address] | mmol/L | LAB | | | | [address];[place] | | | | | | [address] | | | | + + + + + -+ | Cl | 102Comment: Testing | 99 - 109 mmol/L | EXTERNAL | | | | performed at [facility] [place] [place];[address] | | LAB | | | | [address];[place] | | | | | | [address] | | | | + + + + + -+ | CO2 | 31Comment: Testing | 23 - 32 mmol/L | EXTERNAL | | | | performed at [facility] [place] [place];[address] | | LAB | | | | [address];[place] | | | | | | [address] | | | | + + + + + -+ | Anion Gap | 10Comment: Testing | 5 - 20 mmol/L | EXTERNAL | | | | performed at [facility] [place] [place];[address] | | LAB | | | | [address];[place] | | | | | | [address] | | | | + + + + + -+ | Glucose, | 172 (H)Comment: Testing | 65 - 99 mg/dL | EXTERNAL | | | Fasting | performed at [facility] [place] [place];[address] | | LAB | | | | [address];[place] | | | | | | [address] | | | | + + + + + -+ | BUN | 16Comment: Testing | 8 - 25 mg/dL | EXTERNAL | | | | performed at [facility] [place] [place];[address] | | LAB | | | | [address];[place] | | | | | | [address] | | | | + + + + + -+ | Creatinine | 1.20Comment: Testing | 0.70 - 1.30 | EXTERNAL | | | | performed at [facility] [place] [place];[address] | mg/dL | LAB | | | | [address];[place] | | | | | | [address] | | | | + + + + + -+ | BUN/Creatin | 13Comment: Testing | | EXTERNAL | | | ine Ratio | performed at [facility] [place] [place];[address] | | LAB | | | | [address];[place] | | | | | | [address] | | | | + + + + + -+ | Calcium | 9.1Comment: Testing | 8.5 - 10.2 | EXTERNAL | | | | performed at [facility] [place] [place];[address] | mg/dL | LAB | | | | [address];[place] | | | | | | [address] | | | | + + + + + -+ | Protein, | 7.7Comment: Testing | 6.3 - 8.2 g/dL | EXTERNAL | | | Total | performed at [facility] [place] [place];[address] | | LAB | | | | [address];[place] | | | | | | [address] | | | | + + + + + -+ | Albumin | 3.6Comment: Testing | 3.6 - 5.0 g/dL | EXTERNAL | | | | performed at [facility] [place] [place];[address] | | LAB | | | | [address];[place] | | | | | | [address] | | | | + + + + + -+ | Globulin | 4.1Comment: Testing | 1.3 - 4.9 g/dL | EXTERNAL | | | | performed at [facility] [place] [place];[address] | | LAB | | | | [address];[place] | | | | | | [address] | | | | + + + + + -+ | A/G Ratio | 0.9 (L)Comment: Testing | 1.0 - 2.4 | EXTERNAL | | | | performed at [facility] [place] [place];[address] | | LAB | | | | [address];[place] | | | | | | [address] | | | | + + + + + -+ | Bilirubin | 0.3Comment: Testing | 0.1 - 1.5 mg/dL | EXTERNAL | | | Total | performed at [facility] [place] [place];[address] | | LAB | | | | [address];[place] | | | | | | [address] | | | | + + + + + -+ | ALP, | 98Comment: Testing | 35 - 115 U/L | EXTERNAL | | | External | performed at [facility] [place] [place];[address] | | LAB | | | | [address];[place] | | | | | | [address] | | | | + + + + + -+ | AST | 31Comment: Testing | 10 - 45 U/L | EXTERNAL | | | | performed at [facility] [place] [place];[address] | | LAB | | | | [address];[place] | | | | | | [address] | | | | + + + + + -+ | ALT | 29Comment: Testing | 10 - 65 U/L | EXTERNAL | | | | performed at [facility] [place] [place];[address] | | LAB | | | | [address];[place] | | | | | | [address] | | | | + + + [...] | | | | | | at [facility] [place] [place];[address] [facility] | | | | | | [address]vd;[place] [address] | | | | + + + + + -+ | CK, Total | 185Comment: Testing | 55 - 400 U/L | EXTERNAL | | | | performed at [facility] [place] [place];[address] | | LAB | | | | [address];[place] | | | | | | [address] | | | | + + + [...] | | | | | performed at [facility] [place] [place];[address] | | | | | | [address];[place] | | | | | | [address] | | | | + + + + + -+ | aPTT, | 24Comment: Testing | 23 - 32 seconds | EXTERNAL | | | Patient | performed at [facility] [place] [place];[address] | | LAB | | | | [address];[place] | | | | | | [address] | | | | + + + + + -+ | CK-MB | 5.0 (H)Comment: Testing | 0.5 - 3.6 ng/mL | EXTERNAL | | | | performed at [facility] [place] [place];[address] | | LAB | | | | [address] | | | | | | [address] | | | | + + + [...] Other chest pain | + + | Vertigo Dizziness and giddiness | + + documented in this encounter
--- OUTSIDE RECORDS SUMMARY | ~2019-09-09 | XMS | Encounter Summary ---
Demographics + + + | Address | [address] | | | [place] [address] | + + + | Home Phone [...] Sammi Kohler | ECON | [place] [address] | | + + + + + Care Team Providers + +------+ + | Care Bill Checker Name | Role | Phone | + +------+ + | Mik Diego DO | PCP | | + +------+ + Encounter Details +--------+ + + + + | Date | Type | Department | Care Team | Description | +--------+ + + + + | 08/13/ | Orders Only | [facility] | Conversion | | | 2015 | | CENTER | Transaction, | | | | | ANTICOAGULATION | Provider Unknown | | | | | [facility] | | | | | | [address] | (Fax) | | | | | [place], [place] | | | | | | [address] | | | | | | [phone] | | | +--------+ + + + [...] 08/13/14 1134 Encounter Date: 08/13/2014 Status: Signed Certified Flight Instructor: CITLALY Romo (Advanced Registered Nurse Practitioner) S- Maintenance visit. INR check and warfarin dosing. Pt dosed warfarin as directed. No medication changes reported. No illnesses or ER visits. No increased bruising or bleeding. O- INR 3.6 A- Super Therapeutic INR P- Will decrease the dosage by 7%. Recheck INR in 2 weeks. Dosing sheet faxed to pt's YOAV boykin. documented in this encounter Plan of Treatment +--------+---------+ + + + | Date | Type | Specialty | Care Team | Description | +--------+---------+ + + + | 09/10/ | Office | Geriatric Medicine | Mireya Pack, | | | 2019 | Visit | | [facility] [address] | | | | | | [address] [place], | | | | | | [place] [address] | | | | | | [phone] | | | | | | | | +--------+---------+ + + + | 09/29/ | Office | Urology | Mireya Pack, | | | 2020 | Visit | | [facility] [address] | | | | | | [address] [place], | | | | | | [place] [address] | | | | | | [phone] | | | | | | | | | | | | Toy Wild, DO | | | | | | [address] | | | | | | [place] [address] | | | | | | [phone] | | | | | | | [...]
--- OUTSIDE RECORDS SUMMARY | ~2019-09-09 | XMS | Encounter Summary ---
Demographics + + + | Address | [address] | | | [place] [address] | + + + | Home Phone [...] + | Sammi Kohler | ECON | [place] [address] | | + + + + + Care Team Providers + +------+ + | Care Adolescent Medicine Specialist Name | Role | Phone | + +------+ + PCP | Unavailable | + +------+ + Encounter Details +--------+ + + + + | Date | Type | Department | Care Team | Description | +--------+ + + + + | 01/05/ | Emergency | [facility] | Mary Ramírez, | Abdominal pain; | | 2012 | | [facility] | [facility] [address] | Uncontrolled | | | | EMERGENCY CENTER | [place] [address] | hypertension | | | | [address] | [phone] | | | | | [place], [place] | | | | | | [address] | | | | | | [phone] | | | +--------+ + + + [...] Author: QUINN Lea Service: (none) Author Type: Field Producer Filed: 01/06/13727 Date of Service: 01/06/13726 Status: Signed Agriculture Engineer: QUINN Lea (Field Producer) Received COLTON Alert: this patient has 14 [...] 01/05/132132 Date of Service: 01/05/132131 Status: Signed Agriculture Engineer: Tona Vick RN (Registered Nurse) Given PO fluids after discussion with Darrell Nickerson. Awaits reevaluation. Tona Vick RN 01/05/132132 onver ivana Transaction, Provider Unknown - 01/05/2013 7:45 PM PST ED Notes by José Luis Salinas at 01/05/131944 Author: José Luis Salinas Service: (none) Author Type: Process Development Chemist Filed: 01/05/131944 Date of Service: 01/05/131944 Status: Signed Agriculture Engineer: José Luis Salinas (Process Development Chemist) Cosigner: Elmo Patton, EVE at 01/05/1325 02 MD at bedside. José Luis Salinas 01/05/131944 Nolvia Ann MD - 01/05/2013 7:34 PM PSTFormatting of this note might be different from the o riginal. ED Provider Notes by Xander Ramírez MD at 01/05/131933 Author: Xander Ramírez MD Service: (none) Author Type: Physician Filed: 01/08/13 1604 Date of Service: 01/05/131933 Status: Signed Agriculture Engineer: Xander Ramírez MD (Physician) [facility] Department of Emergency Medicine 7:33 PM [...] - CHOLECYSTECTOMY; Surgeon: Jevon Vargas DO; Location: [facility] MAIN OR; Service: General; Laterality: N/A; Abdominal surgery Cholecystectomy Skin cancer excision 10/10/2012 Procedure: EXCISION - SKIN CANCER; Surgeon: Sy Fierro MD; Location: [facility] MA[facility] OR ; Service: Plastics; [...] Component Value Ref Range Date/Time Cardiac Panel [[id number]] (Abnormal) Collected:01/05/131939 Order Status:Completed Updated:01/05/132118 WBC 9.9 [...] ng/mL CK-MB Index 1.6 Troponin I, Lab [[id number]] Collected:01/05/131939 Order Status:Completed Updated:01/05/132118 Specimen Information:Blood TROPONIN [...] Contact Info Jerrell Diego DO [address] [address] [facility] Emergency Department If symptoms worsen [address] [facility] [facility] [address] [facility] [phone] Discharge Medications: New Prescriptions No new medications [...] José Luis Salinas Service: (none) Author Type: Process Development Chemist Filed: 01/05/131933 Date of Service: 01/05/131930 Status: Signed Agriculture Engineer: José Luis Salinas (Process Development Chemist) Cosigner: Elmo Patton RN at 01/05/13 20 [...] 01/05/131929 Date of Service: 01/05/131929 Status: Signed Agriculture Engineer: Elmo Patton RN (Registered Nurse) Bed:10
Expected date:
Expected time:
Means of arrival:
Comments:
onver ivana Transaction, Provider Unknown - 01/05/2013 7:21 PM PST ED Notes by Vadim Bernal RN at 01/05/131920 Author: Vadim Bernal RN Service: (none) Author Type: Registered Nurse Filed: 01/05/131920 Date of Service: 01/05/131920 Status: Signed Agriculture Engineer: Vadim Bernal RN (Registered Nurse) Per EMS: Resident of [facility]. Patient complaining of headache, HTN, [...] | | 2019 | Visit | | [facility] [address] | | | | | | [address] [place], | | | | | | [place] [address] | | | | | | [phone] | | | | | | | | +--------+---------+ + + + | 09/29/ | Office | Urology | Mireya Pack, | | 2019 | Visit | | [facility] [address] | | | | | | [address] [place], | | | | | | [place] [address] | | | | | | [phone] | | | | | | | | | | | | Toy Wild, DO | | | | | | [address] | | | | | | [place] [address] | | | | | | [phone] | | | | | | | [...] | | | | | ONLY, -COMPUTER (358), | | | | | | magazine [...] + + | [facility] | [facility]NAL LAB | + + [...] NORAH GRCT ABDOMEN PELVIS W | | [id number]/30/2013 8:21 PM History: 57 years. Male. Acute [...]
--- OUTSIDE RECORDS SUMMARY | ~2019-09-09 | XMS | Encounter Summary ---
Demographics + + + | Address | [address] | | | [place] [address] | + + + | Home Phone [...] + | Sammi Kohler | ECON | [place] [address] | | + + + + + Care Team Providers + +------+ + | Care Inspector Hairspring Truing Name | Role | Phone | + +------+ + PCP | Unavailable | + +------+ + Encounter Details +--------+ + + + + | Date | Type | Department | Care Team | Description | +--------+ + + + + | 12/20/ | Emergency | [facility] | Jailene Thomason, | Facial laceration, | | 2015 | | [facility]ICAL [facility]ENTER | MD [address] | initial encounter; | | | | EMERGENCY CENTER | [place] [address] | Fall, initial | | | | [address] | [phone] | encounter | | | | [place], [place] | | | | | | [address] | | | | | | [phone] | | | +--------+ + + + [...] ED Notes Conversion Transaction, Provider Unknown - 12/20/2014 1:24 PM PSTFormatting of this note m ight be different from the original. ED Notes by Samantha Olivo RN at 12/20/141323 Author: Samantha Olivo RN Service: (none) Author Type: Registered Nurse Filed: 12/20/141323 Date of Service: 12/20/141323 Status: Signed Pharmaceutical Specialty Representative: Samantha Olivo RN (Registered Nurse) at bedside Samantha Olivo RN 11/14/15 1324 ime, Jailene Snyder MD - 12/20/2014 1:23 PM PST ED Provider Notes by Jailene Thomason MD at 12/20/14 1323 Author: Jailene Thomason MD Service: Emergency Department Author Type: Physician Filed: 12/20/14 5989 Date of Service: 12/20/141322 Status: Signed Pharmaceutical Specialty Representative: Jailene Thomason MD (Physician) Procedure Orders: 1. Laceration repair [[id number]] ordered by Jailene Thomason MD at 12/20/14 1652 [facility] Department of Emergency Medicine 1:24 PM 12/20/2014 HPI History of Present Illness Patient Identification Norah Gr is a 59 y.o. male. Patient information was obtained from patient. History/Exam limitations: none. Patient presented to the Emergency Department by: [facility] 1723 Chief Complaint Chief Complaint Patient presents with Fall Facial Laceration The patient complains of facial laceration. Onset of symptoms was just prior to arrival, wi th a constant course since that time. Pt reports he was speed walking when he tripped and fe ll. The symptoms are described to be of moderate severity. The patient also complains of he ad injury, right knee abrasion. The patient describes the quality and location of the sympt oms as the following: a laceration to the right eyebrow. Care prior to arrival consisted of applying pressure and transport by EMS, with some relief of bleeding. Pt denies LOC, seizure , vomiting, or any other injuries. Pt has been walking since his fall. Pt states "I need a CT because my blood is real thin". Pt is on Coumadin. Tetanus updated last week. PCP: JERRELL GUTIÉRREZ Past Medical History Diagnosis [...] - CHOLECYSTECTOMY; Surgeon: Jevon Vargas DO; Location: [facility] MAIN OR; Service: General; Laterality: N/A; Abdominal surgery Cholecystectomy Skin cancer excision 10/10/2012 Procedure: EXCISION - SKIN CANCER; Surgeon: Sy Fierro MD; Location: [facility] MAIN OR ; Service: Plastics; Laterality: Left; upper arm and upper back w/frozen section Esophagogastroduodenoscopy 03/03/2013 Procedure: ESOPHAGOGASTRODUODENOSCOPY; Surgeon: Howie Gibson MD; Location: [facility] ENDOSCOPY; S ervice: Gastroenterology; Laterality: N/A; Colonoscopy 03/04/2013 Procedure: COLONOSCOPY; Surgeon: Howie Gibson MD; Location: [facility] ENDOSCOPY; Service: Gastroe nterology; Laterality: N/A; Upper gastrointestinal endoscopy Skin biopsy Hernia repair 07/03/2013 Procedure: LAPAROSCOPIC - HERNIA - INCISIONAL; Surgeon: Jevon Vargas DO; Location: [facility] MAIN OR; Service: General; Laterality: N/A; Skin lesion excision Left 05/05/2014 Procedure: EXCISION - LESION - FROZEN SECTION; Surgeon: Sy Fierro MD; Location: [facility] MAIN OR; Service: Plastics; Laterality: Left; forearm Prior to Admission medications Medication Sig Start Date End Date Taking? Authorizing Provider Albuterol Sulfate (VENTOLIN HFA IN) Inhale 2 puffs into the lungs as needed. 108 mcg/act Yes Historical Provider Vgtqn-G-Waixhanpxgsdo (BEANO) TABS Take 150 Units by mouth [...] by mouth daily. Yes Historical Provider aspirin EC 81 MG EC tablet Take 1 tablet by mouth daily with breakfast. 05/08/14 05/08/15 Yes Jose Flowers, calcium carbonate (TUMS) 500 MG chewable tablet Take 500-1,000 mg by mouth daily as needed. For GERD Yes Historical Provider clonazePAM (KLONOPIN) 1 MG tablet Take 0.5 mg by mouth 2 (two) times daily as needed for An xiety. Yes Historical Provider clonidine (CATAPRES) Place 1 patch onto the skin once a week. 0.2mg/hr Indications: last d ose place 05/02 Yes Historical Provider diltiazem (CARDIZEM CD) 240 MG 24 hr capsule Take 1 capsule by mouth daily. 180 mg at hs 05/07/14 Yes Lorna Looney MD famotidine (PEPCID) 20 MG tablet Take 1 tablet by mouth 2 (two) times daily. 12/04/1412/03 Yes Breanne Hurtado, fenofibrate (TRIGLIDE) 160 MG tablet Take 160 mg by mouth daily. Yes Historical Provider fluconazole (DIFLUCAN) 150 MG tablet Take 1 pill once a week for 4 weeks in a row. 10/14/14 Yes TERRY Agosto fluticasone (FLONASE) 50 MCG/ACT nasal 1 spray by Nasal route 2 (two) times daily as needed for Rhinitis (for sinus pressure). 09/27/14 09/27/15 Yes Elmo Thorne, furosemide (LASIX) 20 MG tablet Take 1 tablet by mouth daily. 04/09/14 04/09/15 Yes Marcos nam MD gabapentin (NEURONTIN) 100 MG capsule Take 100 mg by mouth every evening. Yes Historical Provider HYDROcodone-acetaminophen (NORCO) 5-325 MG per tablet Take 1 tablet by mouth every 6 (six) hours as needed for Pain. Yes Historical Provider HYDROcodone-acetaminophen (NORCO) 7.5-325 MG per tablet Take 1 tablet by mouth every 6 (six ) hours as needed for Pain. 04/29/14 04/29/15 Yes Sy Fierro MD insulin glargine (LANTUS) 100 UNIT/ML injection Inject 82 Units into the skin nightly. Patient taking differently: Inject 60 Units into the skin nightly. 10/28/14 Yes Augustine Agosto MD lamoTRIgine (LAMICTAL) 100 MG tablet Take 100 mg by mouth nightly. Yes Historical Provide r zedegmdrw-idlxzirv-fwnfpjdlq hydroxide-simethicone Take 40 mLs by mouth daily as needed. Yes Historical Provider lisinopril (ZESTRIL) 40 MG tablet Take 1 tablet by mouth every evening. 05/07/14 05/07/15 Yes Lorna Looney MD LORazepam (ATIVAN) 1 MG tablet Take 1 mg by mouth every 6 (six) hours as needed for Anxiety . Yes Historical Provider meclizine (ANTIVERT) 25 MG tablet Take 25 mg by mouth 3 (three) times daily as needed. Ye s Historical Provider Mometasone Furo-Formoterol Fum (DULERA) 100-5 MCG/ACT AERO Inhale 2 puffs into the lungs 2 (two) times daily. Yes Historical Provider nitroGLYCERIN (NITROSTAT) 0.[address] 0.4 mg under the tongue every 5 (five) min utes as needed. Yes Historical Provider NOVOLOG 100 UNIT/ML injection INJ 3U SUB-Q TID(AC) AND INJECT SUBCUTANEOUSLY PER SLIDING SC SUSAN 1-70= 2U, 71-100=3U, 101-120= 4U, 121-150=5U, 151-180=6U, 181-210= 7U, 211- 04/23/13 Yes Bang Yeh MD ondansetron (ZOFRAN-ODT) 4 MG disintegrating tablet Take 4 mg by mouth every 6 (six) hours as needed for Nausea. Yes Historical Provider paroxetine (PAXIL) 40 MG tablet Take 40 mg by mouth every morning. Yes Historical Provide r polyethylene glycol (GLYCOLAX) powder DISSOLVE 17GM IN LIQUID AND DRINK BY MOUTH EVERY DAY 04/23/13 Yes Bang Yeh MD pravastatin (PRAVACHOL) 20 MG tablet Take 80 mg by mouth nightly. Yes Historical Provider psyllium (METAMUCIL SMOOTH TEXTURE) 28 % packet Take 1 packet by mouth daily. 04/28/14 Yes Joe Chao MD selenium sulfide (SELSUN) 2.5 % lotion Apply to affected areas x 15 min for 2 weeks. Then j ust once a week for prophylaxis. 5/21/15 5/20/16 Yes TERRY Agosto tamsulosin (FLOMAX) 0.4 MG capsule Take 0.4 mg by mouth 2 (two) times daily. Administer 30 minutes after the same meal each day. Capsules should be swallowed whole; do not crush, chew , or open Yes Historical Provider tiotropium (SPIRIVA) 18 MCG inhalation capsule Inhale 18 mcg into the lungs daily. Yes Hi storical Provider warfarin (COUMADIN) 5 MG tablet Take 1 tablet by mouth daily. Or as directed by [facility] 12/19/14 Yes CITLALY Leonard Allergies Allergen Reactions Vitamin B12 [...] Lives alone x 1 wk, moved from [facility], , 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 2 falls in the last 6 months. Family History Problem Relation Age of Onset Heart disease Father Heart disease Sister Diabetes type II Sister Heart Problems Brother ROS Review of Systems Constitutional: Negative for: fever, chills, or weight loss HEENT: Negative for: head trauma, ear pain, sore throat, visual disturbance Cardiovascular/Respiratory: Negative for: chest pain, syncope, shortness of breath, cough Gastrointestinal: Negative for: abdominal pain, nausea, vomiting, diarrhea, black or blo juliane stools Genitourinary: Negative for: dysuria or urinary problems Musculoskeletal: Positive for: right knee abrasion Skin: Negative for: rash or lesions Neuro : Positive for: head injury with laceration to the right eyebrow Negative for: Muscle weakness, seizure, trouble walking, LOC Endocrine/Heme/Lymph: Negative for: swollen lymph nodes, easy bruising Physical Exam Physical Exam BP 180/94 mmHg | Pulse 115 | Temp(Src) 98 F (36.7 C) (Oral) | Resp 26 | Ht 1.791 m (5' 10.5") | Wt 113.399 kg (250 lb) | BMI 35.35 kg/m2 | SpO2 96% Vital signs interpretation: Hypertensive, tachycardic, tachypneic Pulse Oximetry interpretation: Normal General: Alert, in no apparent distress Head; Laceration above the right upper eyebrow, 3.5 cm, no active bleeding Eyes: Normal inspection, pupils equal and round, non-icteric Neck: Normal inspection Supple No C spine tenderness CVS: Rate and rhythm normal No murmurs, rubs or gallops Respiratory: Breath sounds normal bilaterally Abdomen: Soft, non-tender, non-distended No guarding or rebound Extremities: Right knee mild erythema and small abrasion, normal ROM, no pain with ROM Skin: Warm and dry No rash Neuro: No gross motosensory Deficit Normal gait ED Course Medical Decision Making and Emergency Department Course ED Department Course 1:24 PM Patient presents with head injury, facial laceration, and right knee abrasion after a fall. Pt is on Coumadin. Will obtain head CT and perform laceration repair. Pt agreeable to this plan. 1:48 PM Pt recheck. Injected 5 cc's lidocaine with epi into the wound. Wound will be irriga tasia. 2:08 PM Performed laceration repair, see procedure note. Waiting on head CT. 3:[address] results which are negative. 3:47 PM Pt recheck. Informed the pt of negative head CT. Discussed home care for laceration and informed the pt that the sutures are absorbable so he will not require suture removal. Advised that he not apply any creams or ointments to the Dermabond. Pt understands and agree s with the plan. All questions and concerns addressed. The patient was clinically stable a time of discharge. No acute life or limb threatening co ndition was found during this visit. Management plan such as home care and outpatient follo w up were discussed with patient/family. Pt was given strict ED precautions to return if sy mptoms worsen or fail to improve. ED Medication Administration from 12/20/2014 1314 to 12/20/2014 1650 Date/Time Order Dose Route Action Action by 12/20/2014 1356 lidocaine-EPINEPHrine 1 %[id number] injection 1 mL Infiltration Given by Other Jailene Thomason MD Filed Vitals: 12/20/14 1318 12/20/14 1518 12/20/14 1600 BP: 180/94 192/93 199/89 Pulse: 115 82 99 Temp: 98 F (36.7 C) 98.2 F (36.8 C) TempSrc: Oral Oral Resp: 26 16 20 Height: 1.791 m (5' 10.5") Weight: 113.399 kg (250 lb) SpO2: 96% 98% 96% Records Reviewed Old medical records. Nursing notes. Reviewed [facility] alert and care plan. Pt has had 38 ED visits in the last year. Labs & Radiology Results Laboratory Evaluation Results None Radiology and EKG Evaluation Imaging Results CT Head Non-Con (Final result) Result time: 12/20/14 15:07:29 Final result by Rad Results In Richard (12/20/14 15:07:29) Impression: 1. No acute intracranial hemorrhage, mass or infarct. Narrative: NORAH GR Male 59 [address] HEAD WO CONTRAST HISTORY: Head injury and headache. TECHNIQUE: 5-mm axial noncontrast images were acquired from the foramen magnum through the cranial saad lana. COMPARISON: 12/05/2014 FINDINGS: No acute intracranial hemorrhage, mass or infarct. Basal cisterns are patent. The ventricles and sulci are normal in size and configuration. Orbits are normal. Visualized paranasal sinuses and mastoid show no significant abnormality. Diagnosis & Disposition ED Diagnoses Final diagnoses Facial laceration, initial encounter Fall, initial encounter Disposition: ED Disposition Discharge Condition at discharge: Stable Follow-up Information Follow up With Details Comments Contact Info Jerrell Gutiérrez, DO As needed [address] [facility] [address] [facility] Emergency Department If symptoms worsen [address] [place] [address] Discharge Medications: Discharge Medication List as of 12/20/2014 3:52 PM Procedures Additional Documentation Lac Repair Date/Time: 12/20/2014 1:48 PM Performed by: JAILENE THOMASON Authorized by: JAILENE THOMASON Consent: Verbal consent obtained. Risks and benefits: risks, benefits and alternatives were discussed Consent given by: patient Patient understanding: patient states understanding of the procedure being performed Required items: required blood products, implants, devices, and special equipment available Patient identity confirmed: provided demographic data Body area: head/neck Location details: right eyebrow Laceration length: 3.5 cm Foreign bodies: no foreign bodies Tendon involvement: none Nerve involvement: none Vascular damage: no Anesthesia: local infiltration Local anesthetic: lidocaine 1% with epinephrine Anesthetic total: 5 ml Preparation: Patient was prepped and draped in the usual sterile fashion. Irrigation solution: saline Irrigation method: syringe Amount of cleaning: standard Debridement: none Degree of undermining: none Skin closure: glue (5-0 fast-absorbing gut) Number of sutures: 7 Technique: simple Approximation: close Approximation difficulty: simple Patient tolerance: Patient tolerated the procedure well with no immediate complications Attending Note: Documentation assistance provided by Kathryn Melendez (Scribe). Information recorded by the scribe has been reviewed and validated by me. Troy laughlin with its contents. MD Jailene Garcia MD 12/20/14 0828 onversion Transact behzad, Provider Unknown - 12/20/2014 1:15 PM PSTFormatting of this note might be different fr om the original. ED Notes by Yojana Richardson RN at 12/20/141314 Author: Yojana Richardson RN Service: (none) Author Type: Registered Nurse Filed: 12/20/141314 Date of Service: 12/20/141314 Status: Signed Pharmaceutical Specialty Representative: Yojana Richardson RN (Registered Nurse) Bed: 1105 Expected date: Expected time: Means of arrival: Comments: 1723 docume nted in this encounter Plan of Treatment +--------+---------+ + + + | Date | Type | Specialty | Care Team | Description | +--------+---------+ + + + | 09/10/ | Office | Geriatric Medicine | Mireya Pack, | | | 2019 | Visit | | [facility] [address] | | | | | | [address] [place], | | | | | | [place] [address] | | | | | | [phone] | | | | | | | | +--------+---------+ + + + | 09/29/ | Office | Urology | Mireya Pack, | | | 2019 | Visit | | [facility] [address] | | | | | | [address] [place], | | | | | | [place] [address] | | | | | | [phone] | | | | | | | | | | | | Toy Wild, DO | | | | | | [address] | | | | | | [place] [address] | | | | | | [phone] | | | | | | | | +--------+---------+ + + + documented as of this encounter Procedures + +--------+ + + + | Procedure Name | Priori | Date/Time | Associated Diagnosis | Comments | | | ty | | | | + +--------+ + + + | CT HEAD WO CONTRAST | Routin | 12/20/2014 | | Results for this | | | e | 3:00 PM | | procedure are in the | | | | PST | | results section. | + +--------+ + + + documented in this encounter Results CT Head wo Contrast (12/20/2014 3:00 PM PST) + + | Specimen | + + | | + + + + + | Impressions | Performed At | + + + | 1. No acute intracranial hemorrhage, mass or infarct. | | | | | + + + + + + | Narrative | Performed At | + + + | NORAH GR Male 59 [address] HEAD WO CONTRAST HISTORY: Head | | | injury and headache. TECHNIQUE: 5-mm axial noncontrast images | | | were acquired from the foramen magnum through the cranial vertex. | | | COMPARISON: 12/05/2014 FINDINGS: No acute intracranial | | | hemorrhage, mass or infarct. Basal cisterns are patent. The | | | ventricles and sulci are normal in size and configuration. Orbits | | | are normal. Visualized paranasal sinuses and mastoid show no | | | significant abnormality. | | + + + + -----+ | Procedure Note | + -----+ | Richard, Rad Conversion - 09/20/2018 10:29 PM PDT NORAH Cha 59 years[address] HEAD WO | | CONTRAST HISTORY:Head injury and headache. TECHNIQUE:5-mm axial noncontrast images were | | acquired from the foramen magnum through the cranial vertex. COMPARISON:12/05/2014 | | FINDINGS: No acute intracranial hemorrhage, mass or infarct. Basal cisterns are patent. | | The ventricles and sulci are normal in size and configuration. Orbits are normal. | | Visualized paranasal sinuses and mastoid show no significant abnormality. IMPRESSION: | | 1. No acute intracranial hemorrhage, mass or infarct. | |5-mm axial noncontrast images were acquired from the foramen magnum through the cranial saad lana. | | | |COMPARISON: | |12/05/2014 | | | |FINDINGS: | | | |No acute intracranial hemorrhage, mass or infarct. | | | |Basal cisterns are patent. The ventricles and sulci are normal in size and configuration. | | | |Orbits are normal. | | | |Visualized paranasal sinuses and mastoid show no significant abnormality. | | | | | |IMPRESSION: | | | |1. No acute intracranial hemorrhage, mass or infarct. | | | | | + -----+ documented in this encounter Visit Diagnoses + + | Diagnosis | + + | Facial laceration, initial encounter | + + | Fall, initial encounter | + + documented in this encounter
--- OUTSIDE RECORDS SUMMARY | ~2019-09-09 | XMS | Encounter Summary ---
Demographics + + + | Address | [address] | | | [place] [address] | + + + | Home Phone [...] Sammi Kohler | ECON | [place] [address] | | + + + + + Care Team Providers + +------+ + | Care Check Cashier Name | Role | Phone | + +------+ + PCP | Unavailable | + +------+ + Encounter Details +--------+ + + + + | Date | Type | Department | Care Team | Description | +--------+ + + + + | 12/22/ | Emergency | [facility] | Wolfert, Yaakov, DO | Cardiac murmur; | | 2014 | | [facility] | [address] | Chest wall pain; | | | | EMERGENCY CENTER | [address], | Diabetes type 1, | | | | [address] | [place] [address] | uncontrolled (HCC); | | | | [place], [place] | [phone] | Chronic renal | | | | [address] | | insufficiency; GERD | | | | [phone] | | (gastroesophageal | | | | [...] Notes by Jenn Moralez RN at 12/22/13 3469 Author: Jenn Moralez RN Service: (none) Author Type: Registered Nurse Filed: 12/22/13 173 Date of Service: 12/22/131733 Status: Signed Drive In Teller: Jenn Moralez RN (Registered Nurse) Phone call placed to [facility] to notify pt's return. Jenn Gutierrez RN 12/22/13 258 onver ivana Transaction, Provider Unknown - 12/22/2013 4:08 PM PST ED Notes by Jenn Moralez RN at 12/22/13 6117 Author: Jenn Moralez RN Service: (none) Author Type: Registered Nurse Filed: 12/22/13 1609 Date of Service: 12/22/13 1608 Status: Signed Drive In Teller: Jenn Moralez RN (Registered Nurse) Pt called stating, "The pain went away." Will hold pain medication at this time. Informed p t to please inform me if pain returned. Stated understanding. Jenn Gutierrez RN 12/22/13 8419 onver ivana Transaction, Provider Unknown - 12/22/2013 2:55 PM PST ED Notes by Jenn Moralez RN at 12/22/13 6854 Author: Jenn Moralez RN Service: (none) Author Type: Registered Nurse Filed: 12/22/13 1452 Date of Service: 12/22/13 6064 Status: Signed Drive In Teller: Jenn Moralez RN (Registered Nurse) Dr. Bridges at bedside. Jenn Gutierrez RN 12/22/13 0433 Saima chetanYaakov DO - 12/22/2013 2:47 PM PSTFormatting of this note might be different from the or iginal. ED Provider Notes by Yaakov Bridges DO at 12/22/13 7281 Author: Yaakov Bridges DO Service: Emergency Department Author Type: Physician Filed: 12/29/13 1205 Date of Service: 12/22/13 7718 Status: Signed Drive In Teller: Yaakov Bridges DO (Physician) [facility] Department of Emergency Medicine 2:48 PM 12/22/2013 History of Present Illness Patient Identification Norah Gr is a 58 y.o. male. Patient information was obtained from patient. History/Exam limitations: mental status. Patient presented to the Emergency Department by: [place] [id number] Primary care physician: JERRELL GUTIÉRREZ Chief Complaint Chief Complaint Patient presents with Chest Pain The patient presents with chest pain. 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 Patient also complains of burping with acid taste in back of throat. Pt den ies fever/chills, headache, facial pain, rhinorrhea, sore throat, dyspnea, N/V, appetite arina nges, bowel or bladder habit changes, skin rash, paresthesias, myalgias/arthralgias, gait ab normalities, lymphadenopathy, or new bruising. Patient has had similar symptoms previously. Patient has been recently evaluated by [facility] for this complaint. Patient has significant history for DM, HTN, hyperlipidemia, obesity, male gender, and age. Patient has had multiple cardiac evaluations including catheterization and echocardiogram. No known history of prior NV or pulmonary embolism Past Medical History Diagnosis [...] CHOLECYSTECTOMY; Surgeon: Jevon Vargas DO; Location: [facility] MAIN OR; Service: General; Laterality: N/A; Abdominal surgery Cholecystectomy Skin cancer excision 10/10/2012 Procedure: EXCISION - SKIN CANCER; Surgeon: Sy Fierro MD; Location: [facility] MAIN OR ; Service: Plastics; Laterality: Left; upper arm and upper back w/frozen section Esophagogastroduodenoscopy 03/03/2013 Procedure: ESOPHAGOGASTRODUODENOSCOPY; Surgeon: Howie Gibson MD; Location: [facility] ENDOSCOPY; S ervice: Gastroenterology; Laterality: N/A; Colonoscopy 03/04/2013 Procedure: COLONOSCOPY; Surgeon: Howie Gibson MD; Location: [facility] ENDOSCOPY; Service: Gastroe nterology; Laterality: N/A; Upper gastrointestinal endoscopy Skin biopsy Hernia repair 07/03/2013 Procedure: LAPAROSCOPIC - HERNIA - INCISIONAL; Surgeon: Jevon Vargas DO; Location: [facility] MAIN OR; Service: General; Laterality: N/A; Prior to Admission medications Medication Sig Start Date End Date Taking? Authorizing Provider Albuterol Sulfate (VENTOLIN HFA IN) Inhale 2 puffs into the lungs as needed. Historical Provider Zxdii-D-Hbodhxefnbxey (BEANO) TABS Take 150 Units by mouth [...] 100 mg by mouth nightly. Historical Provider zrmgrlzvg-gegenofl-ocrvaiobp hydroxide-simethicone Take 40 mLs by mouth daily [...] organ damage at this ti me (acute NV, aortic dissection, acute CVA, etc) and no [...] patient to follow up with their prim [facility] care provider (or emergent return to the emergency department if establishment with a [facility] care provider has not been conducted and condition worsens) to ensure ongoing evaluati on and treatment as indicated. Expectant outcome, as far as could [facility], was discussed. We have also discussed specific, as w ell as general, emergent RTED instructions. All questions addressed. Pt ready for discharg e. Records Reviewed Old medical records. Nursing notes. Dozens of Prior ED visits for similar and unrelated complaints. Patient is currently with the [facility]. Patient has heart catheterization performed on 10/2013 [...] hydroxide-simethicone (MAALOX) 200-200- 20 MG/5ML 10 mL, CO-erihzb-kczsnhbt-scopolamine () 10 mL solution (30 mLs Oral Given 12/22/13 1502) Laboratory Evaluation Results Procedure Component Value Ref Range Date/Time POC clinitek 10 [[id number]] (Abnormal) Collected: 12/22/13 1650 Order Status: Completed Updated: 12/22/13 165 Color, UA YELLOW Clarity, UA CLEAR Glucose, UA >999 (A) NEGATIVE mg/dL Bilirubin, UA NEGATIVE NEGATIVE Ketones, UA NEGATIVE NEGATIVE mg/dL Spec Grav, UA 1.015 1.001 - 1.035 Blood, UA NEGATIVE NEGATIVE pH, UA 6.0 4.6 - 8.0 Protein, UA NEGATIVE NEGATIVE mg/dL Urobilinogen, UA 0.2 <1.1 mg/dL Nitrite, UA NEGATIVE NEGATIVE WBC, UA NEGATIVE NEGATIVE Comprehensive metabolic panel [[id number]] (Abnormal) Collected: 12/22/13 143 Order Status: Completed [...] 57 (L) >60 mL/min/1.73m2 CBC with differential [[id number]] (Abnormal) Collected: 12/22/131430 Order Status: Completed Updated: [...] 0 - 0.1 K/uL POC cardiac troponin [[id number]] Collected: 12/22/13 1450 Order Status: Completed Updated: 12/22/13 1504 POC CARDIAC TROPONIN 0.02 0.00 - 0.10 ng/mL Radiology and EKG Evaluation EKG Interpretation: Time: 1445 Rate: 74 Rhythm: Sinus Duvall: Normal RICHARD: Normal QRS: Normal, narrow complex [...] Documented by Yaakov Bridges DO (12/22/13 16:48:05, [facility] Emergency Department, Emergency Medicine) 2 view [...] above. The imaging was independently viewed by me and interpreted contemporaneously by me. Yaakov Bridges [...] day For continued evaluation and treatment [address] [facility] [id number] [facility] Emergency Department If symptoms worsen [address] [facility] [phone] Discharge Medications: New Prescriptions No new medications This document has been prepared with a voice recognition system. The possibility of "sound alike" cycle analyst errors, addition and/or deletions may occur. If there is any question p pancho contact the author of the document. Procedures Additional Documentation Procedures Attending Note: Documentation assistance provided by Tram Slaughter (Scribe). Information recorded by the scribe has been reviewed and validated by me. Troy laughlin with its contents. DO Yaakov Emanuel DO 12/29/13 1205 onversion Transactlenin sanchez, Provider Unknown - 12/22/2013 2:42 PM PST ED Notes by Mili Goode RN at 12/22/131441 Author: Mili Goode RN Service: (none) Author Type: Registered Nurse Filed: 12/22/131441 Date of Service: 12/22/131441 Status: Signed Drive In Teller: Mili Goode RN (Registered Nurse) Bed: 1110 Expected date: Expected time: Means of arrival: Comments: docume nted in this encounter Plan of Treatment +--------+---------+ + + + | Date | Type | Specialty | Care Team | Description | +--------+---------+ + + + | 09/10/ | Office | Geriatric Medicine | Mireya Pack, | | | 2019 | Visit | | CLERICAL OFFICE [address] | | | | | | [address], | | | | | | [place] [address] | | | | | | [phone] | | | | | | | | +--------+---------+ + + + | 09/29/ | Office | Urology | Mireya Pack, | | | 2019 | Visit | | CLERICAL OFFICE [address] | | | | | | [address], | | | | | | [place] [address] | | | | | | [phone] | | | | | | | | | | | | Toy Wild, DO | | | | | | [address] | | | | | | [place] [address] | | | | | | [phone] | | | | | | | [...] CHEST 2 VIEW FRONTAL | | AND VANAQLB4212/22/2013 4:24 PM History: 58 years. Male. Acute [...] + + | Historically converted procedure from [facility] Epic environment | EXTERNAL LAB | + [...] [place] | | | | | | [address] | | | | + + + + + + | Non- | 5.20Comment: Testing | 4.20 - 5.70 | EXTERNAL | | | Red Blood | performed at [facility];[address] | M/uL | LAB | | | Cells | [address];[place] | | | | | Counted | [address] | | | | + + + + + + | Hemoglobin | 13.7Comment: Testing | 13.2 - 17.0 | EXTERNAL | | | | performed at [facility];888 | g/dL | LAB | | | | [address];[place] | | | | | | [address] | | | | + + + + + + | Hematocrit, | 41.6Comment: Testing | 39.0 - 50.0 % | EXTERNAL | | | POC | performed at [facility];[address] | | LAB | | | | [address];[place] | | | | | | [address] | | | | + + + + + + | MCV | 80.0Comment: Testing | 80.0 - 100.0 fl | EXTERNAL | | | | performed at [facility];[address] | | LAB | | | | [address];[place] | | | | | | [address] | | | | + + + + + + | MCH | 26.4 (L)Comment: Testing | 27.0 - 34.0 pg | EXTERNAL | | | | performed at [facility];[address] | | LAB | | | | [address];[place] | | | | | | [address] | | | | + + + + + + | MCHC | 32.9Comment: Testing | 32.0 - 35.5 | EXTERNAL | | | | performed at [facility];888 | g/dL | LAB | | | | [address];[place] | | | | | | [address] | | | | + + + + + + | RDW-CV | 42.0Comment: Testing | 37 - 53 fl | EXTERNAL | | | | performed at [facility];[address] | | LAB | | | | [address];[place] | | | | | | [address] | | | | + + + + + + | Platelet | 318Comment: Testing | 150 - 400 K/uL | EXTERNAL | | | Count | performed at [facility];888 | | LAB | | | Plasma | [address];[place] | | | | | | [address] | | | | + + + [...] | | | | | Blvd;[place] [address] | | | | + + + + + + | % Segmented | 63.5Comment: Testing | % | EXTERNAL | | | | performed at [facility];[address] | | LAB | | | Neutrophils | [address];[place] | | | | | | [address] | | | | + + + + + + | % | 25.2Comment: Testing | % | EXTERNAL | | | Lymphocytes | performed at [facility];[address] | | LAB | | | | [address];[place] | | | | | | [address] | | | | + + + + + + | % Monocytes | 8.2Comment: Testing | % | EXTERNAL | | | | performed at [facility];[address] | | LAB | | | | [address];[place] | | | | | | [address] | | | | + + + + + + | % | 2.6Comment: Testing | % | EXTERNAL | | | Eosinophils | performed at [facility];[address] | | LAB | | | | [address];[place] | | | | | | [address] | | | | + + + + + + | % Basophils | 0.5Comment: Testing | % | EXTERNAL | | | | performed at [facility];[address] | | LAB | | | | [address];[place] | | | | | | [address] | | | | + + + + + + | Absolute | 6.6Comment: Testing | 1.9 - 7.4 K/uL | EXTERNAL | | | Segmented | performed at [facility];[address] | | LAB | | | Neutrophils | [address];[place] | | | | | | [address] | | | | + + + + + + | Absolute | 2.6Comment: Testing | 1.0 - 3.9 K/uL | EXTERNAL | | | Lymphocytes | performed at [facility];[address] | | LAB | | | | [address];[place] | | | | | | [address] | | | | + + + + + + | Absolute | 0.9 (H)Comment: Testing | 0 - 0.8 K/uL | EXTERNAL | | | Monocytes | performed at [facility];[address] | | LAB | | | | [address];[place] | | | | | | [address] | | | | + + + + + + | Absolute | 0.3Comment: Testing | 0 - 0.5 K/uL | EXTERNAL | | | Eosinophils | performed at [facility];[address] | | LAB | | | | [address];[place] | | | | | | [address] | | | | + + + + + + | Absolute | 0.0Comment: Testing | 0 - 0.1 K/uL | EXTERNAL | | | Basophils | performed at [facility];[address] | | LAB | | | | [address];[place] | | | | | | [address] | | | | + + + [...] | LAB | | | | [address];[place] | | | | | | [address] | | | | + + + + + + | K | 3.7Comment: Testing | 3.5 - 4.9 | EXTERNAL | | | | performed at [facility];888 | mmol/L | LAB | | | | [address];[place] | | | | | | [address] | | | | + + + + + + | Cl | 105Comment: Testing | 99 - 109 mmol/L | EXTERNAL | | | | performed at [facility];[address] | | LAB | | | | [address];[place] | | | | | | [address] | | | | + + + + + + | CO2 | 32Comment: Testing | 23 - 32 mmol/L | EXTERNAL | | | | performed at [facility];[address] | | LAB | | | | [address];[place] | | | | | | [address] | | | | + + + + + + | Anion Gap | 10Comment: Testing | 5 - 20 mmol/L | EXTERNAL | | | | performed at [facility];[address] | | LAB | | | | [address];[place] | | | | | | [address] | | | | + + + + + + | Glucose, | 215 (H)Comment: Testing | 65 - 99 mg/dL | EXTERNAL | | | Fasting | performed at [facility];[address] | | LAB | | | | [address];[place] | | | | | | [address] | | | | + + + + + + | BUN | 17Comment: Testing | 8 - 25 mg/dL | EXTERNAL | | | | performed at [facility];[address] | | LAB | | | | [address];[place] | | | | | | [address] | | | | + + + + + + | Creatinine | 1.36 (H)Comment: Testing | 0.70 - 1.30 | EXTERNAL | | | | performed at [facility];888 | mg/dL | LAB | | | | [address];[place] | | | | | | [address] | | | | + + + + + + | BUN/Creatin | 13Comment: Testing | | EXTERNAL | | | ine Ratio | performed at [facility];[address] | | LAB | | | | [address];[place] | | | | | | [address] | | | | + + + + + + | Calcium | 9.0Comment: Testing | 8.5 - 10.2 | EXTERNAL | | | | performed at [facility];888 | mg/dL | LAB | | | | [address];[place] | | | | | | [address] | | | | + + + + + + | Protein, | 7.9Comment: Testing | 6.3 - 8.2 g/dL | EXTERNAL | | | Total | performed at [facility];[address] | | LAB | | | | [address];[place] | | | | | | [address] | | | | + + + + + + | Albumin | 3.6Comment: Testing | 3.6 - 5.0 g/dL | EXTERNAL | | | | performed at [facility];[address] | | LAB | | | | [address];[place] | | | | | | [address] | | | | + + + + + + | Globulin | 4.3Comment: Testing | 1.3 - 4.9 g/dL | EXTERNAL | | | | performed at [facility];[address] | | LAB | | | | [address];[place] | | | | | | [address] | | | | + + + + + + | A/G Ratio | 0.8 (L)Comment: Testing | 1.0 - 2.4 | EXTERNAL | | | | performed at [facility];[address] | | LAB | | | | [address];[place] | | | | | | [address] | | | | + + + + + + | Bilirubin | 0.3Comment: Testing | 0.1 - 1.5 mg/dL | EXTERNAL | | | Total | performed at [facility];[address] | | LAB | | | | [address];[place] | | | | | | [address] | | | | + + + + + + | ALP, | 103Comment: Testing | 35 - 115 U/L | EXTERNAL | | | External | performed at [facility];[address] | | LAB | | | | [address];[place] | | | | | | [address] | | | | + + + + + + | AST | 24Comment: Testing | 10 - 45 U/L | EXTERNAL | | | | performed at [facility];[address] | | LAB | | | | [address];[place] | | | | | | [address] | | | | + + + + + + | ALT | 23Comment: Testing | 10 - 65 U/L | EXTERNAL | | | | performed at [facility];[address] | | LAB | | | | [address];[place] | | | | | | [address] | | | | + + + [...] | at [facility];[address] [place] [address] | | | | | | [facility];[place] [address] | | | | + + + [...]
--- OUTSIDE RECORDS SUMMARY | ~2019-09-09 | XMS | Encounter Summary ---
Demographics + + + | Address | [address] | | | [place] [address] | + + + | Home Phone [...] + | Sammi Kohler | ECON | [place] [address] | | + + + + + Care Team Providers + +------+ + | Care Brick Carrier Name | Role | Phone | + +------+ + PCP | Unavailable | + +------+ + Encounter Details +--------+ + + + + | Date | Type | Department | Care Team | Description | +--------+ + + + + | 12/01/ | Emergency | [facility] | Wolfert, Yaakov, DO | HTN (hypertension); | | 2013 | | [facility] | [address] | DM (diabetes | | | | EMERGENCY CENTER | [address], | mellitus), type 2, | | | | [address] | [place] [address] | uncontrolled (HCC) | | | | [place], [place] | [phone] | | | | | [address] | | | | | | [phone] | | | +--------+ + + + [...] Progress Notes Conversion Transaction, Provider Unknown - 12/01/2013 7:30 PM PDTFormatting of this note m ight be different from the original. Case Management by QUINN Tyson at 12/01/131929 Author: QUINN Tyson Service: (none) Author Type: Technical Applications Specialist Filed: 12/01/131934 Date of Service: 12/01/131929 Status: Signed Cab Starter: QUINN Tyson (Technical Applications Specialist) COLTON alert rec'd for this patient, 36 ED visits < 12 months. Care Guidelines are in place as follows: Care Recommendation: Kevyn has a printed Crisis Plan at the Assisted Living Facility that he is to follow before coming to the ED for non life-threatening issues. Please discuss with Kevyn when he present s to the ED The following guidelines were formulated by the ED Care Guidelines Committee of the [facility] Consistent Care Program on May 21, 2013. No controlled substances should be administered in the ED or prescribed from the ED for sub jective pain. Past Medical & Surgical History: Primary Care Provider (PCP) is Dr. Gutiérrez at . Notify PCP if giving any a dditional narcotics for objective findings. PCP supports enrollment in the [facility] nt Care Program. Medical History: 1. Diabetes-He is on a sliding scale after meals, routine insulin before meals and takes La ntus at night. A1C April, = 7.9%. He was referred to an solar designer in February, 4. 2. COPD- He take [...] the GE junction (requiring managem ent in [place] at ), rectal ulcer and internal hemorrhoids. 9. Hernia- He has been referred to Dr. Vargas. Problem List: He needs to make regular visits to see his PCP in light of his chronic conditions. He estab lished in February, but he never returned as requested. This patient is developmentally delayed and has multiple chronic conditions and providers. He would benefit from having a Senior Pl Sql Developer assist him in coordinating his care. History of Behavioral Health Conditions: He has depression and anxiety- This is managed by his PCP. He takes Paxil and abilify. He has been referred to Radha Sumner in February. According to [facility], he never establish ed care. Please follow-up with him and assist him in making another appointment to establish care. Pain/Opioid Agreement: Kevyn has an order at the Assisted Living Facility for hydrocodone as needed. He does not h ave a diagnosis of chronic pain. Please see CONSUMER SCIENCE TEACHER for prescribing history. Social History or Identified Risk: - Fall Risk - Non adherence - Transportation Issues Social History: Kevyn lives at [facility] . He may require another level of care given the number of ED visits at enrollment (22 in the last year)-please contact his [facility] Ca se Molding Line Operator (Fermin Preston) to discuss. Kevyn is developmentally delayed- Patient may benefit from having someone with him at his d octor's appointments. He has applied for Dial-A-Ride services (April,) Applied for a Health Home for this client through [facility]- please review Provider One to determ ine if one has been assigned. Additional Information: This patient is case managed by the [place] Consistent Care Program. Please contact the advertisement compositor at your hospital for any immediate or [...] ED Notes Conversion Transaction, Provider Unknown - 12/01/2013 4:28 PM PDTFormatting of this note m ight be different from the original. ED Notes by Naz Yuan RN at 12/01/13 4404 Author: Naz Yuan RN Service: (none) Author Type: Registered Nurse Filed: 12/01/13 1640 Date of Service: 12/01/13 1628 Status: Signed Cab Starter: Naz Yuan RN (Registered Nurse) Spoke with pts ride back to [facility] who states he is on his way, pt requesting to wait for ride in waiting room, provided paper pants due to incontinence earlier, pt declines paper sh irt requesting to wear gown back to [facility]. Dc teaching provided, emphasized to follow up a s directed or return for concerns, copy of dc instructions sent with pt back to [facility]. Naz Yuan RN 12/01/13 1640 onver ivana Transaction, Provider Unknown - 12/01/2013 4:17 PM PDT ED Notes by Naz Yuan RN at 12/01/13 1617 Author: Naz Yuan RN Service: (none) Author Type: Registered Nurse Filed: 12/01/13 1618 Date of Service: 12/01/13 1617 Status: Signed Cab Starter: Naz Yuan RN (Registered Nurse) Pt states he called his friend from the medical center to come pick him up Naz Yuan RN 12/01/13 1618 onver ivana Transaction, Provider Unknown - 12/01/2013 1:25 PM PDT ED Notes by Naz Yuan RN at 12/01/13 1325 Author: Naz Yuan RN Service: (none) Author Type: Registered Nurse Filed: 12/01/13 1325 Date of Service: 12/01/13 1325 Status: Signed Cab Starter: Naz Yuan RN (Registered Nurse) Entered room for urine sample pt incontinent of urine, marilee care provided educated to give sample when able Naz Yuan RN 12/01/13 1325 aakov Antony, - 12/01/2013 12:44 PM PDTFormatting of this note might be different from the or iginal. ED Provider Notes by Yaakov Bridges DO at 12/01/13 1244 Author: Yaakov Bridges DO Service: Emergency Department Author Type: Physician Filed: 12/11/13 8097 Date of Service: 12/01/131243 Status: Signed Cab Starter: Yaakov Bridges DO (Physician) [facility] Department of Emergency Medicine 12:46 PM 12/01/2013 History of Present Illness Patient Identification Kevyn Guzman is a 57 y.o. male. Patient information was obtained from patient. History/Exam limitations: none. Patient presented to the Emergency Department by: [facility] 1723 Primary care physician: EDIN GUTIÉRREZ Chief Complaint Chief Complaint Patient presents with Hyperglycemia suspected UTI Flank Pain pt reports left flank pain The patient presents with dysuria. Onset of symptoms was 2 weeks ago, with an unremitting course since that time. Patient also expresses concerns about his elevated blood sugars and elevated BP. Pt denies fever/chills, headache, facial pain, rhinorrhea, sore throat, chest pain, dyspnea, abdominal pain, N/V, appetite changes, skin rash, paresthesias, myalgias/art hralgias, gait abnormalities, lymphadenopathy, or new bruising. Pt notifies that the staff at the assisted living facility at which he resides requested that he come in for evaluation . PMHx: Type II DM, A-fib, HTN, Hyperlipidemia, COPD, developmental delay. Past Medical History Diagnosis Date Diabetes mellitus [...] CHOLECYSTECTOMY; Surgeon: Jevon Vargas DO; Location: [facility] MAIN OR; Service: General; Laterality: N/A; Abdominal surgery Cholecystectomy Skin cancer excision 10/10/2012 Procedure: EXCISION - SKIN CANCER; Surgeon: Sy Fierro MD; Location: [facility] MAIN OR ; Service: Plastics; Laterality: Left; upper arm and upper back w/frozen section Esophagogastroduodenoscopy 03/03/2013 Procedure: ESOPHAGOGASTRODUODENOSCOPY; Surgeon: Howie Gibson MD; Location: [facility] ENDOSCOPY; S ervice: Gastroenterology; Laterality: N/A; Colonoscopy 03/04/2013 Procedure: COLONOSCOPY; Surgeon: Howie Gibson MD; Location: [facility] ENDOSCOPY; Service: Gastroe nterology; Laterality: N/A; Upper gastrointestinal endoscopy Skin biopsy Hernia repair 07/03/2013 Procedure: LAPAROSCOPIC - HERNIA - INCISIONAL; Surgeon: Jevon Vargas DO; Location: [facility] MAIN OR; Service: General; Laterality: [...] into the skin nightly. H istorical Provider fwcrednvf-whdjldxn-vgqtxwpeb hydroxide-simethicone Take 40 mLs by mouth daily [...] of Children: 1 Years of Education: s. [employer] Occupational History disabled Social History Main Topics Smoking status: Never Smoker Smokeless tobacco: Never Used Alcohol Use: 0.0 oz/week 1-2 Cans of beer per week Comment: once week, occasionally Drug Use: No Sexually Active: Not Currently Other Topics Concern Not on file Social History Narrative Lives in jail, IADL, full code Family History Problem Relation Age of Onset Heart disease Father Heart disease Sister Diabetes type II Sister Heart Problems Brother Review of Systems Constitutional: Negative for: fever, chills Nose: Negative for: nosebleed Throat: Negative for: sore throat or dysphagia Cardiovascular/Respiratory: Positive for: elevated BP Negative for: chest pain, shortness of breath, cough Gastrointestinal: Negative for: abdominal pain, nausea/vomiting, diarrhea, constipation, b lack or bloody stools Genitourinary: Positive for: dysuria Negative for: hematuria, increased urinary frequency Musculoskeletal: Negative for: joint pain, myalgias, or restriction of range of motion Skin: Negative for: laceration or lesion Neuro and psych: Negative for: fainting, head injury, seizure, trouble walking Endocrine/Heme/Lymph: Positive for: elevated blood sugars Negative for: swollen lymph nodes, easy bruising All other systems were reviewed and are subjectively reported as negative. Physical Exam BP 170/82 | Pulse 105 | Temp(Src) 98.3 F (36.8 C) (Oral) | Resp 20 | Ht 1.803 m (5' 11" ) | Wt 106.142 kg (234 lb) | BMI 32.65 kg/m2 | SpO2 90% Vitals: Elevated BP (with h/o HTN), tachycardic, obese, otherwise normal Pulse Oximetry Interpretation: Low, but likely at baseline given hx of COPD General: Alert, in no distress, strong odor of urine Eyes: Pupils equal and round, non-icteric ENT: Pharynx normal Moist mucous membranes, pink appearing Neck: Supple CVS: Rate and rhythm normal 2/6 systolic ejection murmur Respiratory: Breath sounds normal bilaterally, normal chest rise and fall, no obvious traum a Abdomen: Soft, non-tender, non-distended Bowel sounds present No guarding or rebound Back: Moves without difficulty No CVA tenderness Genitalia: Underwear is soaked with urine External genitalia appears normal Extremities: Moves all extremities No peripheral edema, no calf tenderness to compression Distal pulses palpable in all extremities Skin: Color normal Warm and dry No rash Neuro: No gross motor/sensory deficits noted Medical Decision Making and Emergency Department Course ED Department Course 12:46 PM. Patient presents with dysuria. After gathering and discussing HPI, ROS, PMHX, S urgHx, FmHx, and physically examining the patient I have discussed differential consideratio ns including, but not limited to, UTI, cellulitis, kidney stone, pyelonephritis, medication non-compliance, dietary non-compliance, vs other. I have also discussed the testing course to determine potential etiology and determine whether the patient will be safe for outpatien t continuing evaluation or will require admission. Pt indicates understanding of expected c ourse of ED evaluation and care. 1:07 PM Per RN, patient is reported by staff at [facility] ([facility]) to have b een crying uncontrollably all day. She relates their concern about his elevated blood gluco se, elevated BP, and elevated HR. They further report that he was recently started on clona zepam for emotional distress. 2:19 PM Urine does not show signs of infection. Laboratory studies are unremarkable, exce pt for an elevated glucose level. Will treat HTN with metoprolol and hyperglycemia with a d ose of insulin. 2:41 PM Insulin administered to pt. 3:34 PM Per RN, patient's current blood glucose is 208, reduced from 338. 3:54 PM Patient re-check. Patient's BP has improved to 152/68. He reports feeling well. Upon further discussion regarding why he was tearful earlier at his place of residence, the pt reports that his father at the age of 59 and he just turned 57, which is cau sing him concern. Pt is non-toxic appearing. No acute life or limb threatening condition i dentified. Labs and impressions have been discussed. I specifically discussed with the pat ient/family/medical DPOA/advocate that the diagnosis reached after evaluation today may not represent the totality of the patients medical condition, but after evaluation the patient a ppears appropriate for continuing outpatient evaluation unless otherwise specified. I also discussed with the patient/family/medical DPOA/advocate that a more precise diagnosis may be reached later as symptoms continue to present and evolve. Given the limitations presented by an isolated evaluation of a previously unknown patient inherent to/in an emergency depart ment setting, I have counseled the patient to follow up with their primary care provider (or emergent return to the emergency department if establishment with a primary care provider h as not been conducted and condition worsens) to ensure ongoing evaluation and treatment as i ndicated. Expectant outcome, as far as could be determined by this singular emergency depar tment evaluation, was discussed. We have also discussed specific, as well as general, emerg ent RTED instructions. All questions addressed. Pt ready for discharge. Vital signs at discharge are: BP 163/94 | Pulse 80 | Temp(Src) 97.5 F (36.4 C) (Oral) | Resp 18 | Ht 1.803 m (5' 11") | Wt 106.142 kg (234 lb) | BMI 32.65 kg/m2 | SpO2 94%; BP, H R, and SpO2 improved as of the time of presentation. Records Reviewed Old medical records. Nursing notes. COLTON Alert Numerous prior ED visits for similar and unrelated complaints (a total of 8 this past month , and a total of 34 in the past year). Pt was seen 1 day ago for HTN, and the day before that for c/o CP and hyperglycemia. Pt is in consistent care program. Medications administered during ED Evaluation and Treatment: Medications sodium chloride 0.9 % bolus 1,000 mL (0 mLs Intravenous Stopped 12/01/13 1437) metoprolol (LOPRESSOR) injection 5 mg (5 mg Intravenous Given 12/01/13 1505) insulin regular (HUMULIN R) injection 5 Units (5 Units Intravenous Given 12/01/13 1441) Laboratory Evaluation Results Procedure Component Value Ref Range Date/Time POCT glucose [[id number]] Order Status: Sent Urine Microscopic [[id number]] Collected: 12/01/13 133 Order Status: Completed Updated: 12/01/131351 Specimen Information: Urine / Urine, Clean Catch WBC 1-5 0 - 5 /hpf RBC 0-2 0 - 2 /hpf EPITHELIAL 1-5 /lpf BACTERIA NONE SEEN NONE SEEN Complete Metabolic Panel [[id number]] (Abnormal) Collected: 12/01/13 1304 Order Status: Completed Updated: 12/01/131335 Specimen Information: Blood SODIUM 140 135 - 143 mmol/L POTASSIUM 4.8 3.5 - 4.9 mmol/L CHLORIDE 106 99 - 109 mmol/L CO2 31 23 - 32 mmol/L ANION GAP AGAP 8 5 - 20 mmol/L GLUCOSE 338 (H) 65 - 99 mg/dL BUN 16 8 - 25 mg/dL CREATININE 1.13 0.70 - 1.30 mg/dL BUN/CREAT 14 CALCIUM 8.7 8.5 - 10.2 mg/dL TOTAL PROTEIN 7.1 6.3 - 8.2 g/dL Albumin 3.2 (L) 3.6 - 5.0 g/dL GLOBULIN 3.9 1.3 - 4.9 g/dL A/G 0.8 (L) 1.0 - 2.4 TBIL 0.3 0.1 - 1.5 mg/dL ALK PHOS 105 35 - 115 U/L AST 40 10 - 45 U/L ALT 25 10 - 65 U/L EGFR >60 >60 mL/min/1.73m2 POC clinitek 10 [[id number]] (Abnormal) Collected: 12/01/131334 Order Status: Completed Updated: 12/01/131335 Color, UA YELLOW Clarity, UA CLEAR Glucose, UA >999 (A) NEGATIVE mg/dL Bilirubin, UA NEGATIVE NEGATIVE Ketones, UA NEGATIVE NEGATIVE mg/dL Spec Grav, UA 1.015 1.001 - 1.035 Blood, UA NEGATIVE NEGATIVE pH, UA 5.5 4.6 - 8.0 Protein, UA NEGATIVE NEGATIVE mg/dL Urobilinogen, UA 0.2 <1.1 mg/dL Nitrite, UA NEGATIVE NEGATIVE WBC, UA NEGATIVE NEGATIVE Ketones, Serum [[id number]] Collected: 12/01/13 130 Order Status: Completed Updated: 12/01/131333 Specimen Information: Blood KETONES,SERUM NEGATIVE NEGATIVE CBC w Auto Diff [[id number]] (Abnormal) Collected: 12/01/13 1304 Order Status: Completed Updated: 12/01/13 1318 Specimen Information: Blood WBC 11.3 (H) 3.8 - 11.0 K/uL RBC 4.79 4.20 - 5.70 M/uL HGB 12.5 (L) 13.2 - 17.0 g/dL HCT 38.5 (L) 39.0 - 50.0 % MCV 80.2 80.0 - 100.0 fl MCH 26.1 (L) 27.0 - 34.0 pg MCHC 32.5 32.0 - 35.5 g/dL RDW SD 41.6 37 - 53 fl PLT 261 150 - 400 K/uL MPV 7.8 fl DIFF TYPE AUTOMATED NEUTROPHILS 70.3 % LYMPHOCYTES 19.6 % MONOCYTES 7.8 % EOSINOPHILS 1.1 % BASOPHILS 1.2 % NEUTROPHILS ABS 8.0 (H) 1.9 - 7.4 K/uL LYMPHOCYTES ABS 2.2 1.0 - 3.9 K/uL MONOCYTES ABS 0.9 (H) 0 - 0.8 K/uL EOSINOPHILS ABS 0.1 0 - 0.5 K/uL BASOPHILS ABS 0.1 0 - 0.1 K/uL Radiology Evaluation Imaging Results None Labs and imaging reviewed. All pertinent positives noted and addressed. Results have been discussed with the patient. ED Diagnoses Final diagnoses HTN (hypertension) DM (diabetes mellitus), type 2, uncontrolled Disposition: ED Disposition Discharge Condition at discharge: Improving condition Follow-up Information Follow up With Details Comments Contact Carine Gutiérrez DO Call in 1 day For continued evaluation and treatment [id number] [facility] [phone] [facility] Emergency Department If symptoms worsen [address] [facility] [address] Discharge Medications: Discharge Medication List as of 12/01/2013 4:18 PM This document has been prepared with a voice recognition system. The possibility of "sound alike" stamping press operator errors, addition and/or deletions may occur. If there is any question p lease contact the author of the document. Procedures Additional Documentation Procedures Attending Note: Documentation assistance provided by Amber Wiggins (Scribe). Informat ion recorded by the scribe has been reviewed and validated by me. I agree with its contents . DO Yaakov Emanuel DO 12/11/131726 onversion Transactlenin sanchez, Provider Unknown - 12/01/2013 12:27 PM PDT ED Notes by Michelle Palomares RN at 12/01/131226 Author: Michelle Palomares RN Service: (none) Author Type: Registered Nurse Filed: 12/01/131226 Date of Service: 12/01/131226 Status: Signed Cab Starter: Michelle Palomares RN (Registered Nurse) Bed: 16 Expected date: Expected time: Means of arrival: Comments: 1722 docume nted in this encounter Plan of Treatment +--------+---------+ + + + | Date | Type | Specialty | Care Team | Description | +--------+---------+ + + + | 09/10/ | Office | Geriatric Medicine | Mireya Pack, | | | 2019 | Visit | | TECHNICAL ASSOCIATE [address] | | | | | | [address] [place], | | | | | | [place] [address] | | | | | | [phone] | | | | | | | | +--------+---------+ + + + | 09/29/ | Office | Urology | Mireya Pack, | | | 2019 | Visit | | TECHNICAL ASSOCIATE [address] | | | | | | [address] [place], | | | | | | [place] [address] | | | | | | [phone] | | | | | | | | | | | | Toy Wild, DO | | | | | | [address] | | | | | | [place] [address] | | | | | | [phone] | | | | | | | | +--------+---------+ + + + documented as of this encounter Procedures + +--------+ + + + | Procedure Name | Priori | Date/Time | Associated Diagnosis | Comments | | | ty | | | | + +--------+ + + + | POC GLUCOSE | Routin | 12/01/2013 | | Results for this | | | e | 3:32 PM | | procedure are in the | | | | PDT | | results section. | + +--------+ + + + | URINALYSIS, | Routin | 12/01/2013 | | Results for this | | MICROSCOPIC ONLY | e | 1:30 PM | | procedure are in the | | | | PDT | | results section. | + +--------+ + + + | CULTURE, URINE | STAT | 12/01/2013 | | Results for this | | | | 1:30 PM | | procedure are in the | | | | PDT | | results section. | + +--------+ + + + | EXTERNAL LAB: CBC | Routin | 12/01/2013 | | Results for this | | | e | 1:04 PM | | procedure are in the | | | | PDT | | results section. | + +--------+ + + + | KETONES, BLOOD | Routin | 12/01/2013 | | Results for this | | | e | 1:04 PM | | procedure are in the | | | | PDT | | results section. | + +--------+ + + + | COMPREHENSIVE | Routin | 12/01/2013 | | Results for this | | METABOLIC PANEL | e | 1:04 PM | | procedure are in the | | | | PDT | | results section. | + +--------+ + + + documented in this encounter Results POC Glucose (12/01/2013 3:32 PM PDT) + + + + + + | Component | Value | Ref Range | Performed | Pathologist | | | | | At | Signature | + + + + + + | Glucose, | 208 (H)Comment: Testing | 65 - 99 mg/dL | EXTERNAL | | | Fingerstick | performed at [facility];[address] | | LAB | | | | [address];[place], [place] | | | | | | [address] | | | | + + + + + + + + | Specimen | + + | | + + + +---------+ + + | Performing | Address | City/State/Zipcode | Phone Number | | Organization | | | | + +---------+ + + | EXTERNAL LAB | | | | + +---------+ + + Urinalysis, Microscopic Only (12/01/2013 1:30 PM PDT) + + + + + [...] [place] | | | | | | [address] | | | | + + + + + + | RBCJULIOCESAR | 0-2Comment: Testing | 0 - 2 /hpf | EXTERNAL | | | | performed at [facility];[address] | | LAB | | | [address];[place] | | | | | | [address] | | | | + + + + + + | Epithelial | 1-5Comment: Testing | /lpf | EXTERNAL | | | Cells | performed at [facility];[address] | | LAB | | | | [address];[place] | | | | | | [address] | | | | + + + + + + | Bacteria, | NONE SEENComment: | | EXTERNAL | | | UA | Testing performed at | | LAB | | | | [facility];[address] [place] [address] | | | | | | [facility];[place] [address] | | | | + + + + + + + + | Specimen | + + | Urine specimen | | (specimen) | + + + +---------+ + + | Performing | Address | City/State/Zipcode | Phone Number | | Organization | | | | + +---------+ + + | EXTERNAL LAB | | | | + +---------+ + + Culture, Urine (12/01/2013 1:30 PM PDT) + + | Specimen | + + | Urine specimen | | (specimen) | + + + + + | Narrative | Performed At | + + + | Specimen Description CLEAN CATCH URINE CULTURE | EXTERNAL LAB | | 10,000 TO 50,000 CFU/ML | | | MIXED GRAM POSITIVE | | | AND GRAM NEGATIVE DIDI | | | Testing performed at [facility], [address] [place], [place] | | | [address] | | + + + + +---------+ + + | Performing | Address | City/State/Zipcode | Phone Number | | Organization | | | | + +---------+ + + | EXTERNAL LAB | | | | + +---------+ + + Ketones, blood (12/01/2013 1:04 PM PDT) + + + + + + | Component | Value | Ref Range | Performed | Pathologist | | | | | At | Signature | + + + + + + | Ketones, | NEGATIVEComment: Testing | | EXTERNAL | | | Blood | performed at [facility] | | LAB | | | | [address];[place], [place] | | | | | | [address] | | | | + + + [...] + +---------+ + + External Lab: CBC (12/01/2013 1:04 PM PDT) + + + + + + | Component | Value | Ref Range | Performed | Pathologist | | | | | At | Signature | + + + + + + | WBC | 11.3 (H)Comment: Testing | 3.8 - 11.0 K/uL | EXTERNAL | | | | performed at [facility];[address] | | LAB | | | | [address];[place] | | | | | | [address] | | | | + + + + + + | Non- | 4.79Comment: Testing | 4.20 - 5.70 | EXTERNAL | | | Red Blood | performed at [facility];[address] | M/uL | LAB | | | Cells | [address];[place] | | | | | Counted | [id number] | | | | + + + + + + | Hemoglobin | 12.5 (L)Comment: Testing | 13.2 - 17.0 | EXTERNAL | | | | performed at [facility];[address] | g/dL | LAB | | | | [address];[place] | | | | | | [address] | | | | + + + + + + | Hematocrit, | 38.5 (L)Comment: Testing | 39.0 - 50.0 % | EXTERNAL | | | POC | performed at [facility];[address] | | LAB | | | | [address];[place] | | | | | | [address] | | | | + + + + + + | MCV | 80.2Comment: Testing | 80.0 - 100.0 fl | EXTERNAL | | | | performed at [facility];[address] | | LAB | | | | [address];[place] | | | | | | [address] | | | | + + + + + + | MCH | 26.1 (L)Comment: Testing | 27.0 - 34.0 pg | EXTERNAL | | | | performed at [facility];[address] | | LAB | | | | [address];[place] | | | | | | [address] | | | | + + + + + + | MCHC | 32.5Comment: Testing | 32.0 - 35.5 | EXTERNAL | | | | performed at [facility];888 | g/dL | LAB | | | | [address];[place] | | | | | | [address] | | | | + + + + + + | RDW-CV | 41.6Comment: Testing | 37 - 53 fl | EXTERNAL | | | | performed at [facility];[address] | | LAB | | | | [address];[place] | | | | | | [address] | | | | + + + + + + | Platelet | 261Comment: Testing | 150 - 400 K/uL | EXTERNAL | | | Count | performed at [facility];[address] | | LAB | | | Plasma | [address];[place] | | | | | | [address] | | | | + + + + + + | MPV | 7.8Comment: Testing | fl | EXTERNAL | | | | performed at [facility];[address] | | LAB | | | | [address];[place] | | | | | | [address] | | | | + + + + + + | Differentia | AUTOMATEDComment: | | EXTERNAL | | | l Type | Testing performed at | | LAB | | | | [facility];[address];[place] [address] | | | | + + + + + + | % Segmented | 70.3Comment: Testing | % | EXTERNAL | | | | performed at [facility];[address] | | LAB | | | Neutrophils | [address];[place] | | | | | | [address] | | | | + + + + + + | % | 19.6Comment: Testing | % | EXTERNAL | | | Lymphocytes | performed at [facility];[address] | | LAB | | | | [address];[place] | | | | | | [address] | | | | + + + + + + | % Monocytes | 7.8Comment: Testing | % | EXTERNAL | | | | performed at [facility];[address] | | LAB | | | | [address];[place] | | | | | | [address] | | | | + + + + + + | % | 1.1Comment: Testing | % | EXTERNAL | | | Eosinophils | performed at [facility];[address] | | LAB | | | | [address];[place] | | | | | | [address] | | | | + + + + + + | % Basophils | 1.2Comment: Testing | % | EXTERNAL | | | | performed at [facility];[address] | | LAB | | | | [address];[place] | | | | | | [address] | | | | + + + + + + | Absolute | 8.0 (H)Comment: Testing | 1.9 - 7.4 K/uL | EXTERNAL | | | Segmented | performed at [facility];[address] | | LAB | | | Neutrophils | [address];[place] | | | | | | [address] | | | | + + + + + + | Absolute | 2.2Comment: Testing | 1.0 - 3.9 K/uL | EXTERNAL | | | Lymphocytes | performed at [facility];[address] | | LAB | | | | [address];[place] | | | | | | [address] | | | | + + + + + + | Absolute | 0.9 (H)Comment: Testing | 0 - 0.8 K/uL | EXTERNAL | | | Monocytes | performed at [facility];[address] | | LAB | | | | [address];[place] | | | | | | [address] | | | | + + + + + + | Absolute | 0.1Comment: Testing | 0 - 0.5 K/uL | EXTERNAL | | | Eosinophils | performed at [facility];[address] | | LAB | | | | [address];[place] | | | | | | [address] | | | | + + + + + + | Absolute | 0.1Comment: Testing | 0 - 0.1 K/uL | EXTERNAL | | | Basophils | performed at [facility];[address] | | LAB | | | | [address];[place] | | | | | | [address] | | | | + + + [...] + +---------+ + + Comprehensive Metabolic Panel (12/01/2013 1:04 PM PDT) + + + + + [...] [place] | | | | | | [address] | | | | + + + + + + | K | 4.8Comment: SLT | 3.5 - 4.9 | EXTERNAL | | | | HEMOLYSISTesting | mmol/L | LAB | | | | performed at [facility];[address] | | | | | | [address];[place] | | | | | | [address] | | | | + + + + + + | Cl | 106Comment: Testing | 99 - 109 mmol/L | EXTERNAL | | | | performed at [facility];[address] | | LAB | | | | [address];[place] | | | | | | [address] | | | | + + + + + + | CO2 | 31Comment: Testing | 23 - 32 mmol/L | EXTERNAL | | | | performed at [facility];[address] | | LAB | | | | [address];[place] | | | | | | [address] | | | | + + + + + + | Anion Gap | 8Comment: Testing | 5 - 20 mmol/L | EXTERNAL | | | | performed at [facility];[address] | | LAB | | | | [address];[place] | | | | | | [address] | | | | + + + + + + | Glucose, | 338 (H)Comment: Testing | 65 - 99 mg/dL | EXTERNAL | | | Fasting | performed at [facility];[address] | | LAB | | | | [address];[place] | | | | | | [address] | | | | + + + + + + | BUN | 16Comment: Testing | 8 - 25 mg/dL | EXTERNAL | | | | performed at [facility];[address] | | LAB | | | | [address];[place] | | | | | | [address] | | | | + + + + + + | Creatinine | 1.13Comment: Testing | 0.70 - 1.30 | EXTERNAL | | | | performed at [facility];888 | mg/dL | LAB | | | | [address];[place] | | | | | | [address] | | | | + + + + + + | BUN/Creatin | 14Comment: Testing | | EXTERNAL | | | ine Ratio | performed at [facility];[address] | | LAB | | | | [address];[place] | | | | | | [address] | | | | + + + + + + | Calcium | 8.7Comment: Testing | 8.5 - 10.2 | EXTERNAL | | | | performed at [facility];888 | mg/dL | LAB | | | | [address];[place] | | | | | | [address] | | | | + + + + + + | Protein, | 7.1Comment: Testing | 6.3 - 8.2 g/dL | EXTERNAL | | | Total | performed at [facility];[address] | | LAB | | | | [address];[place] | | | | | | [address] | | | | + + + + + + | Albumin | 3.2 (L)Comment: Testing | 3.6 - 5.0 g/dL | EXTERNAL | | | | performed at [facility];[address] | | LAB | | | | [address];[place] | | | | | | [address] | | | | + + + + + + | Globulin | 3.9Comment: Testing | 1.3 - 4.9 g/dL | EXTERNAL | | | | performed at [facility];[address] | | LAB | | | | [address];[place] | | | | | | [address] | | | | + + + + + + | A/G Ratio | 0.8 (L)Comment: Testing | 1.0 - 2.4 | EXTERNAL | | | | performed at [facility];[address] | | LAB | | | | [address];[place] | | | | | | [address] | | | | + + + + + + | Bilirubin | 0.3Comment: Testing | 0.1 - 1.5 mg/dL | EXTERNAL | | | Total | performed at [facility];[address] | | LAB | | | | [address];[place] | | | | | | [address] | | | | + + + + + + | ALP, | 105Comment: Testing | 35 - 115 U/L | EXTERNAL | | | External | performed at [facility];[address] | | LAB | | | | [address];[place] | | | | | | [address] | | | | + + + + + + | AST | 40Comment: SLT | 10 - 45 U/L | EXTERNAL | | | | HEMOLYSISTesting | | LAB | | | | performed at [facility];[address] | | | | | | [address];[place] | | | | | | [address] | | | | + + + + + + | ALT | 25Comment: Testing | 10 - 65 U/L | EXTERNAL | | | | performed at [facility];[address] | | LAB | | | | [facility] | | | | | | [address] | | | | + + + [...] | at [facility];[address] [place] [address] | | | | | | [address];[place] [address] | | | | + + + [...] + | Diagnosis | + + | HTN (hypertension) Unspecified essential hypertension | + + | DM (diabetes mellitus), type 2, uncontrolled (HCC) Type II or unspecified type | | diabetes mellitus without mention of complication, uncontrolled | + + documented in this encounter
--- OUTSIDE RECORDS SUMMARY | ~2019-09-09 | XMS | Encounter Summary ---
Demographics + + + | Address | [address] | | | [place] [address] | + + + | Home Phone [...] + | Sammi Kohler | ECON | [place] [address] | | + + + + + Care Team Providers + +------+ + | Care Bilingual Hr Generalist Name | Role | Phone | + +------+ + PCP | Unavailable | + +------+ + Encounter Details +--------+ + + + + | Date | Type | Department | Care Team | Description | +--------+ + + + + | 08/13/ | Emergency | [facility] | Yesica Flowers, | Abdominal pain; | | 2014 - | | [facility] | DO [address] | Diabetes mellitus, | | | | EMERGENCY CENTER | [place] [address] | type 2 (HCC); Atrial | | 08/14/ | | [address] | [phone] | fibrillation (HCC); | | 2013 | | [place], [place] | | HTN (hypertension) | | | | [address] | | | | | | [phone] | | | +--------+ + + + [...] ED Notes Conversion Transaction, Provider Unknown - 08/14/2013 1:23 AM PDTFormatting of this note m ight be different from the original. ED Notes by Suresh Marin RN at 08/14/13122 Author: Suresh Marin RN Service: (none) Author Type: Registered Nurse Filed: 08/14/13122 Date of Service: 08/14/13122 Status: Signed Overnight Caregiver: Suresh Marin RN (Registered Nurse) :Pt awake alert in no distress. Suresh Marin RN 08/14/13122 hitak Yesica llanos DO - 08/13/2013 10:22 PM PDTFormatting of this note might be different from the o riginal. ED Provider Notes by Yesica Flowers DO at 08/13/132221 Author: Yesica Flowers DO Service: (none) Author Type: Physician Filed: 08/15/13 1443 Date of Service: 08/13/132221 Status: Signed Overnight Caregiver: Yesica Flowers DO (Physician) Additional Documentation Procedures [facility] Department of Emergency Medicine History of Present Illness Patient Identification Norah Gr is a 57 y.o. male. Patient information was obtained from patient. History/Exam limitations: none. Patient presented to the Emergency Department [place] [address] Chief Complaint Chief Complaint Patient presents with Abdominal Pain left sided, intermitent, history of same Patient presents for evaluation of abdominal pain. The symptom onset was this afternoon, an d has had a constant course. The pain is sharp. The pain is located LUQ, and is rated as 8/1 0 The pain is made worse by movement and is relieved by nothing. The patient also complains of the following additional symptoms: nausea. Denies diarrhea, fever, dysuria, vomiting. The past workup for the patient has included CT of abdomen, umbilical herniorhaphy, multipl e labs. Past Medical History Diagnosis Date Diabetes mellitus [...] Howie Gibson MD; Location: [facility]; S ervice: Gastroenterology; Laterality: N/A; Colonoscopy 03/04/2013 Procedure: COLONOSCOPY; Surgeon: Howie Gibson MD; Location: [facility]; Service: Gastroe nterology; Laterality: N/A; Upper gastrointestinal endoscopy Skin biopsy Hernia repair 07/03/2013 Procedure: LAPAROSCOPIC - HERNIA - INCISIONAL; Surgeon: Jevon Vargas DO; [facility] [...] (Max of 2 a day) Historical Provider ARIPiprazole (ABILIFY) 10 MG tablet [...] 160 mg by mouth daily. Historical Provider HYDROcodone-acetaminophen (NORCO) 5-325 MG per tablet Take 1 tablet by mouth every 6 (six) hours as needed. Historical Provider insulin glargine (LANTUS) 100 UNIT/ML injection Inject 67 Units into the skin nightly. H istorical Provider ywfizfqxr-owhgneou-rpzaxglas hydroxide-simethicone Take 40 mLs by mouth daily [...] (three) hour s as needed. Historical Provider paroxetine (PAXIL) 40 [...] Negative for: chest pain, shortness of breath, and cough Gastrointestinal: See cc Genitourinary: Negative for: dysuria, hematuria, urinary problems Musculoskeletal: Negative for: myalgias and arthralgias Skin: Negative for: laceration or lesion Neuro and psych: Negative for: fainting, head injury, seizure, trouble walking Endocrine/Heme/Lymph: Negative for: swollen lymph nodes, easy bruising Physical Exam BP 171/84 | Pulse 77 | Temp 97.4 F (36.3 C) | Resp 16 | Wt 107.049 kg (236 lb) | SpO2 9 6% Hypertensive, otherwise normal Pulse Oximetry Interpretation: minimally decreased GEN: Alert, does not appear to be in distress ENT: The TMS are neg. Bilaterally. There is no pharygeal injection, the mucous membranes are pink and moist. There is no conjunctival injection. There is no scleral icterus. There i s no nasal discharge or epistaxis. NECK: Supple, no tenderness on palpation, no cervical lymphadenopathy. No JVD CHEST: Breath sounds are equal bilaterally. There are no adventitious sounds. HRRR. No murm urs. No tenderness to palpation over the chest wall. ABD: Soft, BS present and normal. There is no tenderness to palpation over the abdomen wit h stethoscope in hand, however on palpating with hand alone, and asking the patient if she h ad pain, He was very painful/tender in the LUQ quadrants, There is no rebound, guarding, or rigidity. No bruits. No palpable masses. EXTREM: No c/c/e. No joint swelling BACK: No tenderness to palpation. NEURO: Alert, oriented. SKIN: Warm and dry, no rashes Medical Decision Making and Emergency Department Course ED Department Course Patient presents to the emergency department with chronic abdominal pain. I have ordered ba sic lab and an acute abdominal series. The patient has repeatedly asked for pain medication . I explained to him his pain management plan. He does not appear to be in any acute distr ess. He declined Tylenol. Review of lab: there is a mild anemia, no leukocytosis, no less stressed. The lipase is no rmal. Patient does have moderate hyperglycemia. CMP is otherwise not remarkable. Acute abdominal series: There is no cardiomegaly. The mediastinum is normal size, the great vessels are normal. There are no infiltriates, pneumothorax, or pleural effusion. No free a ir under the diaphragm. Flat enough right abdomen show no dilated bowel or air fluid levels. Psoas stripes are pr esent.. There is an increased stool.Interpreted independently by myself at time of service. good technique. There are no peritoneal signs. No evidence of pancreatitis, hepatitis, small bowel obstruct ion, renal colic, pyleonephritis, appendicitis, bowel perforation, or gall bladder disease. I explained to the patient he would need to follow up with his primary care provider for fu rther workup of his chronic abdominal pain. Records Reviewed Old medical records. Nursing notes. Has had several visits for abdominal pain this year. Patient has an COLTON Alert. PS had 27 emergency department visits in the last year. It st ates he has a printed Crisis Plan at the assisted living facility that he is to follow befor e coming to the emergency department. He does have a primary care physician. 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 It states that no control substitute should be administe red in the ED or prescribed for subjective pain. Laboratory Evaluation Results Procedure Component Value Ref Range Date/Time Lipase [[id number]] Collected:08/13/132140 Order Status:Completed Updated:08/13/132257 LIPASE 163 73 - 393 U/L CBC W/Auto Diff (Reflex to Manual) [[id number]] (Abnormal) Collected:08/13/132208 Order Status:Completed Updated:08/13/132219 WBC 9.4 3.8 - 11.0 K/uL RBC 4.86 4.20 - 5.70 M/uL HGB 12.9 (L) 13.2 - 17.0 g/dL HCT 38.5 (L) 39.0 - 50.0 % MCV 79.3 (L) 80.0 - 100.0 fl MCH 26.6 (L) 27.0 - 34.0 pg MCHC 33.6 32.0 - 35.5 g/dL RDW SD 42.0 37 - 53 fl PLT 284 150 - 400 K/uL MPV 7.2 fl DIFF TYPE AUTOMATED NEUTROPHILS 52.3 % LYMPHOCYTES 36.0 % MONOCYTES 8.7 % EOSINOPHILS 2.4 % BASOPHILS 0.6 % NEUTROPHILS ABS 4.9 1.9 - 7.4 K/uL LYMPHOCYTES ABS 3.4 1.0 - 3.9 K/uL MONOCYTES ABS 0.8 0 - 0.8 K/uL EOSINOPHILS ABS 0.2 0 - 0.5 K/uL BASOPHILS ABS 0.1 0 - 0.1 K/uL Comprehensive metabolic panel [[id number]] (Abnormal) Collected:08/13/132140 Order Status:Completed Updated:08/13/132210 Specimen Information:Blood SODIUM 138 135 - 143 mmol/L POTASSIUM 3.8 3.5 - 4.9 mmol/L CHLORIDE 105 99 - 109 mmol/L CO2 28 23 - 32 mmol/L ANION GAP AGAP 8 5 - 20 mmol/L GLUCOSE 235 (H) 65 - 99 mg/dL BUN 20 8 - 25 mg/dL CREATININE 1.01 0.70 - 1.30 mg/dL BUN/CREAT 20 CALCIUM 8.8 8.5 - 10.2 mg/dL TOTAL PROTEIN 7.7 6.3 - 8.2 g/dL Albumin 3.5 (L) 3.6 - 5.0 g/dL GLOBULIN 4.2 1.3 - 4.9 g/dL A/G 0.8 (L) 1.0 - 2.4 TBIL 0.3 0.1 - 1.5 mg/dL ALK PHOS 91 35 - 115 U/L AST 17 10 - 45 U/L ALT 28 10 - 65 U/L EGFR >60 >60 mL/min/1.73m2 Radiology and EKG Evaluation Imaging Results XR Acute Abdominal Series (Final result) Result time:08/13/132312 Final result by Rad Results In Richard (08/13/13 23:13:52) Impression: 1. Moderate retained colonic stool is noted, without evidence of bowel obstruction or per foration. 2. Evidence of cholecystectomy. Narrative: [facility] XR ABDOMEN ACUTE SERIES 08/13/2013 11:04 PM HISTORY: Abdominal pain. TECHNIQUE: Frontal chest film. Supine and upright views of the abdomen. COMPARISON: Chest radiographs, most recent 06/04/13. CT abdomen and pelvis dated 01/05/13. FINDINGS: The chest film demonstrates no evidence of acute cardiopulmonary disease or free air beneat h hemidiaphragms. The bowel gas pattern is nonobstructed. Moderate retained colonic stool is noted, most sign ificant in the cecum and ascending colon. No pathologic calcification or focal bone abnormal ity is observed. Cholecystectomy clips are observed. ED Diagnoses Final diagnoses Abdominal pain Diabetes mellitus, type 2 Atrial fibrillation HTN (hypertension) Disposition: ED Disposition Discharge Condition at discharge: Stable Follow-up Information Follow up With Details Comments Contact Info Jerrell Diego DO tomorrow [address] [facility] [id number] Discharge Medications: New Prescriptions No new medications Yesica Flowers DO 08/15/13 1443 onversion Transacti on, Provider Unknown - 08/13/2013 9:29 PM PDTFormatting of this note might be different fro m the original. ED Notes by Vadim Bernal RN at 08/13/132128 Author: Vadim Bernal RN Service: (none) Author Type: Registered Nurse Filed: 08/13/132130 Date of Service: 08/13/132128 Status: Signed Overnight Caregiver: Vadim Bernal RN (Registered Nurse) Per EMS: Patient complains of intermitent left sided abdominal pain, has history of same. Reports normal BM this morning Vadim Bernal RN 08/13/132130 docume nted in this encounter Plan of Treatment +--------+---------+ + + + | Date | Type | Specialty | Care Team | Description | +--------+---------+ + + + | 09/10/ | Office | Geriatric Medicine | Mireya Pack, | | | 2019 | Visit | | [employer] [address] | | | | | | [address] [place], | | | | | | [place] [address] | | | | | | [phone] | | | | | | | | +--------+---------+ + + + | 09/29/ | Office | Urology | Mireya Pack, | | | 2019 | Visit | | [employer] [address] | | | | | | [address] [place], | | | | | | [place] [address] | | | | | | [phone] | | | | | | | | | | | | Toy Wild W, DO | | | | | | [address] | | | | | | [place] [address] | | | | | | [phone] | | | | | | | | +--------+---------+ + + + documented as of this encounter Procedures + +--------+ + + + | Procedure Name | Priori | Date/Time | Associated Diagnosis | Comments | | | ty | | | | + +--------+ + + + | XR ABDOMEN AP | Routin | 08/13/2013 | | Results for this | | UPRIGHT KUB AND PA | e | 11:04 PM | | procedure are in the | | CHEST | | PDT | | results section. | + +--------+ + + + | EXTERNAL LAB: CBC | Routin | 08/13/2013 | | Results for this | | | e | 10:09 PM | | procedure are in the | | | | PDT | | results section. | + +--------+ + + + | LIPASE | Routin | 08/13/2013 | | Results for this | | | e | 9:41 PM | | procedure are in the | | | | PDT | | results section. | + +--------+ + + + | COMPREHENSIVE | Routin | 08/13/2013 | | Results for this | | METABOLIC PANEL | e | 9:41 PM | | procedure are in the | | | | PDT | | results section. | + +--------+ + + + documented in this encounter Results XR Abd Supine and Upright w 1 Vw Chest (08/13/2013 11:04 PM PDT) + + | Specimen | + + | | + + + + + | Impressions | Performed At | + + + | 1. Moderate retained colonic stool is noted, without evidence of | | | bowel obstruction or perforation. 2. Evidence of | | | cholecystectomy. Electronically signed by Sravan Gutierrez MD on | | | 08/13/2013 11:13 PM | | + + + + + + | Narrative | Performed At | + + + | [facility] XR ABDOMEN ACUTE SERIES 08/13/2013 11:04 PM | | | HISTORY: Abdominal pain. TECHNIQUE: Frontal chest film. Supine | | | and upright views of the abdomen. COMPARISON: Chest radiographs, | | | most recent 06/04/13. CT abdomen and pelvis dated 01/05/13. | | | FINDINGS: The chest film demonstrates no evidence of acute | | | cardiopulmonary disease or free air beneath hemidiaphragms. The | | | bowel gas pattern is nonobstructed. Moderate retained colonic stool is | | | noted, most significant in the cecum and ascending colon. No | | | pathologic calcification or focal bone abnormality is observed. | | | Cholecystectomy clips are observed. | | + + + + + | Procedure Note | + + | Richard, Rad Conversion - 09/21/2018 3:31 PM PDT [facility] ABDOMEN ACUTE | | SERIES08/13/2013 11:04 PM HISTORY:Abdominal pain. TECHNIQUE:Frontal chest film. Supine and | | upright views of the abdomen. COMPARISON:Chest radiographs, most recent 06/04/13. CT | | abdomen and pelvis dated 01/05/13. FINDINGS:The chest film demonstrates no evidence of | | acute cardiopulmonary disease or free air beneath hemidiaphragms. The bowel gas pattern | | is nonobstructed. Moderate retained colonic stool is noted, most significant in the | | cecum and ascending colon. No pathologic calcification or focal bone abnormality is | | observed. Cholecystectomy clips are observed. IMPRESSION: 1. Moderate retained colonic | | stool is noted, without evidence of bowel obstruction or perforation. 2. Evidence of | | cholecystectomy. | |COMPARISON: | |Chest radiographs, most recent 06/04/13. CT abdomen and pelvis dated 01/05/13. | | | |FINDINGS: | |The chest film demonstrates no evidence of acute cardiopulmonary disease or free air beneat h hemidiaphragms. | | | |The bowel gas pattern is nonobstructed. Moderate retained colonic stool is noted, most sign ificant in the cecum and ascending colon. No pathologic calcification or focal bone abnormal ity is observed. Cholecystectomy clips are observed. | | | |IMPRESSION: | |1. Moderate retained colonic stool is noted, without evidence of bowel obstruction or perf oration. | | | |2. Evidence of cholecystectomy. | | | | | + + External Lab: CBC (08/13/2013 10:09 PM PDT) + + + + + + | Component | Value | Ref Range | Performed | Pathologist | | | | | At | Signature | + + + + + + | WBC | 9.4Comment: Testing | 3.8 - 11.0 K/uL | EXTERNAL | | | | performed at [facility];[address] | | LAB | | | [address];[place] | | | | | | [address] | | | | + + + + + + | Non- | 4.86Comment: Testing | 4.20 - 5.70 | EXTERNAL | | | Red Blood | performed at [facility];[address] | M/uL | LAB | | | Cells | [address];[place] | | | | | Counted | [address] | | | | + + + + + + | Hemoglobin | 12.9 (L)Comment: Testing | 13.2 - 17.0 | EXTERNAL | | | | performed at [facility];[address] | g/dL | LAB | | | | [address];[place] | | | | | | [address] | | | | + + + + + + | Hematocrit, | 38.5 (L)Comment: Testing | 39.0 - 50.0 % | EXTERNAL | | | POC | performed at [facility];[address] | | LAB | | | | [address];[place] | | | | | | [address] | | | | + + + + + + | MCV | 79.3 (L)Comment: Testing | 80.0 - 100.0 fl | EXTERNAL | | | | performed at [facility];[address] | | LAB | | | | [address];[place] | | | | | | [address] | | | | + + + + + + | MCH | 26.6 (L)Comment: Testing | 27.0 - 34.0 pg | EXTERNAL | | | | performed at [facility];[address] | | LAB | | | | [address];[place] | | | | | | [address] | | | | + + + + + + | MCHC | 33.6Comment: Testing | 32.0 - 35.5 | EXTERNAL | | | | performed at [facility];[address] | g/dL | LAB | | | | [address];[place] | | | | | | [address] | | | | + + + + + + | RDW-CV | 42.0Comment: Testing | 37 - 53 fl | EXTERNAL | | | | performed at [facility];[address] | | LAB | | | | [address];[place] | | | | | | [address] | | | | + + + + + + | Platelet | 284Comment: Testing | 150 - 400 K/uL | EXTERNAL | | | Count | performed at [facility];[address] | | LAB | | | Plasma | [address];[place] | | | | | | [address] | | | | + + + + + + | MPV | 7.2Comment: Testing | fl | EXTERNAL | | | | performed at [facility];[address] | | LAB | | | | [address];[place] | | | | | | [address] | | | | + + + + + + | Differentia | AUTOMATEDComment: | | EXTERNAL | | | l Type | Testing performed at | | LAB | | | | [facility];[address];[place] [address] | | | | + + + + + + | % Segmented | 52.3Comment: Testing | % | EXTERNAL | | | | performed at [facility];[address] | | LAB | | | Neutrophils | [address];[place] | | | | | | [address] | | | | + + + + + + | % | 36.0Comment: Testing | % | EXTERNAL | | | Lymphocytes | performed at [facility];[address] | | LAB | | | | [address];[place] | | | | | | [address] | | | | + + + + + + | % Monocytes | 8.7Comment: Testing | % | EXTERNAL | | | | performed at [facility];[address] | | LAB | | | | [address];[place] | | | | | | [address] | | | | + + + + + + | % | 2.4Comment: Testing | % | EXTERNAL | | | Eosinophils | performed at [facility];[address] | | LAB | | | | [address];[place] | | | | | | [address] | | | | + + + + + + | % Basophils | 0.6Comment: Testing | % | EXTERNAL | | | | performed at [facility];[address] | | LAB | | | | [address];[place] | | | | | | [address] | | | | + + + + + + | Absolute | 4.9Comment: Testing | 1.9 - 7.4 K/uL | EXTERNAL | | | Segmented | performed at [facility];[address] | | LAB | | | Neutrophils | [address];[place] | | | | | | [address] | | | | + + + + + + | Absolute | 3.4Comment: Testing | 1.0 - 3.9 K/uL | EXTERNAL | | | Lymphocytes | performed at [facility];[address] | | LAB | | | | [address];[place] | | | | | | [address] | | | | + + + + + + | Absolute | 0.8Comment: Testing | 0 - 0.8 K/uL | EXTERNAL | | | Monocytes | performed at [facility];[address] | | LAB | | | | [address];[place] | | | | | | [address] | | | | + + + + + + | Absolute | 0.2Comment: Testing | 0 - 0.5 K/uL | EXTERNAL | | | Eosinophils | performed at [facility];[address] | | LAB | | | | [address];[place] | | | | | | [address] | | | | + + + + + + | Absolute | 0.1Comment: Testing | 0 - 0.1 K/uL | EXTERNAL | | | Basophils | performed at [facility];[address] | | LAB | | | | [address];[place], [place] | | | | | | [address] | | | | + + + + + + + + | Specimen | + + | | + + + +---------+ + + | Performing | Address | City/State/Zipcode | Phone Number | | Organization | | | | + +---------+ + + | EXTERNAL LAB | | | | + +---------+ + + Lipase (08/13/2013 9:41 PM PDT) + + + + + + | Component | Value | Ref Range | Performed | Pathologist | | | | | At | Signature | + + + + + + | Lipase | 163Comment: Testing | 73 - 393 U/L | EXTERNAL | | | | performed at [facility] | | LAB | | | | [facility];[place], [place] | | | | | | [address] | | | | + + + + + + + + | Specimen | + + | | + + + +---------+ + + | Performing | Address | City/State/Zipcode | Phone Number | | Organization | | | | + +---------+ + + | EXTERNAL LAB | | | | + +---------+ + + Comprehensive Metabolic Panel (08/13/2013 9:41 PM PDT) + + + + + + | Component | Value | Ref Range | Performed | Pathologist | | | | | At | Signature | + + + + + + | Na | 138Comment: Testing | 135 - 143 | EXTERNAL | | | | performed at [facility];[address] | mmol/L | LAB | | | | [address];[place] | | | | | | [address] | | | | + + + + + + | K | 3.8Comment: Testing | 3.5 - 4.9 | EXTERNAL | | | | performed at [facility];[address] | mmol/L | LAB | | | | [address];[place] | | | | | | [address] | | | | + + + + + + | Cl | 105Comment: Testing | 99 - 109 mmol/L | EXTERNAL | | | | performed at [facility];[address] | | LAB | | | | [address];[place] | | | | | | [address] | | | | + + + + + + | CO2 | 28Comment: Testing | 23 - 32 mmol/L | EXTERNAL | | | | performed at [facility];[address] | | LAB | | | | [address];[place] | | | | | | [address] | | | | + + + + + + | Anion Gap | 8Comment: Testing | 5 - 20 mmol/L | EXTERNAL | | | | performed at [facility];[address] | | LAB | | | | [address];[place] | | | | | | [address] | | | | + + + + + + | Glucose, | 235 (H)Comment: Testing | 65 - 99 mg/dL | EXTERNAL | | | Fasting | performed at [facility];[address] | | LAB | | | | [address];[place] | | | | | | [address] | | | | + + + + + + | BUN | 20Comment: Testing | 8 - 25 mg/dL | EXTERNAL | | | | performed at [facility];[address] | | LAB | | | | [address];[place] | | | | | | [address] | | | | + + + + + + | Creatinine | 1.01Comment: Testing | 0.70 - 1.30 | EXTERNAL | | | | performed at [facility];[address] | mg/dL | LAB | | | | [address];[place] | | | | | | [address] | | | | + + + + + + | BUN/Creatin | 20Comment: Testing | | EXTERNAL | | | ine Ratio | performed at [facility];[address] | | LAB | | | | [address];[place] | | | | | | [address] | | | | + + + + + + | Calcium | 8.8Comment: Testing | 8.5 - 10.2 | EXTERNAL | | | | performed at [facility];[address] | mg/dL | LAB | | | | [address];[place] | | | | | | [address] | | | | + + + + + + | Protein, | 7.7Comment: Testing | 6.3 - 8.2 g/dL | EXTERNAL | | | Total | performed at [facility];[address] | | LAB | | | | [address];[place] | | | | | | [address] | | | | + + + + + + | Albumin | 3.5 (L)Comment: Testing | 3.6 - 5.0 g/dL | EXTERNAL | | | | performed at [facility];[address] | | LAB | | | | [address];[place] | | | | | | [address] | | | | + + + + + + | Globulin | 4.2Comment: Testing | 1.3 - 4.9 g/dL | EXTERNAL | | | | performed at [facility];[address] | | LAB | | | | [address];[place] | | | | | | [address] | | | | + + + + + + | A/G Ratio | 0.8 (L)Comment: Testing | 1.0 - 2.4 | EXTERNAL | | | | performed at [facility];[address] | | LAB | | | | [address];[place] | | | | | | [address] | | | | + + + + + + | Bilirubin | 0.3Comment: Testing | 0.1 - 1.5 mg/dL | EXTERNAL | | | Total | performed at [facility];[address] | | LAB | | | | [address];[place] | | | | | | [address] | | | | + + + + + + | ALP, | 91Comment: Testing | 35 - 115 U/L | EXTERNAL | | | External | performed at [facility];[address] | | LAB | | | | [address];[place] | | | | | | [address] | | | | + + + + + + | AST | 17Comment: Testing | 10 - 45 U/L | EXTERNAL | | | | performed at [facility];[address] | | LAB | | | | [address];[place] | | | | | | [address] | | | | + + + + + + | ALT | 28Comment: Testing | 10 - 65 U/L | EXTERNAL | | | | performed at [facility];[address] | | LAB | | | | [address];[place] | | | | | | [address] | | | | + + + [...] | | | | | | at [facility];[address] [place] [address] | | | | | | [facility];[place] [address] | | | | + + + [...] pain, unspecified site | + + | Diabetes mellitus, type 2 (HCC) Type II or unspecified type diabetes mellitus without | | mention of complication, not stated as uncontrolled | + + | Atrial fibrillation (HCC) Atrial fibrillation | + + | HTN (hypertension) Unspecified essential hypertension | + + documented in this encounter"
--- OUTSIDE RECORDS SUMMARY | ~2019-09-09 | XMS | Encounter Summary ---
Demographics + + + | Address | [address] | | | [place] [address] | + + + | Home Phone [...] + | Sammi Kohler | ECON | [place] [address] | | + + + + + Care Team Providers + +------+ + | Care Java Web Developer Name | Role | Phone | + +------+ + PCP | Unavailable | + +------+ + Encounter Details +--------+ + + + + | Date | Type | Department | Care Team | Description | +--------+ + + + + | 07/09/ | Emergency | [facility] | Mik Kwong, | UTI (lower urinary | | 2015 | | [facility] | [address] | tract infection); | | | | EMERGENCY CENTER | [place] [address] | Malaise; Dysuria; | | | | [address] | [phone] | Anemia, unspecified | | | | [place], [place] | | anemia type; | | | | [address] | | Subtherapeutic | | | | [phone] | | international | | | | | | normalized ratio | | | | | | (INR) | +--------+ + + [...] documented as of this encounter ED Notes Mary Mendiola ARNP - 07/09/2014 2:12 AM PDT ED Provider Notes by CITLALY Morrow at 07/09/14 0212 Author: CITLALY Morrow Service: Emergency Department Author Type: Mary burgess Nurse Practitioner Filed: 07/09/14 0643 Date of Service: 07/09/14211 Status: Attested Broom Worker: CITLALY Morrow (Advanced Registered Nurse Practitioner) Cosigner: Mik Kwong MD at 07/09/142229 Attestation signed by Mik Kwong MD at 07/09/142229 I have reviewed the note and supervised the mid-level provider. Procedures [facility] Department of Emergency Medicine HPI History of Present Illness Patient Identification Kevyn Guzman is a 58 y.o. male. Patient information was obtained from patient. History/Exam limitations: none. Patient presented to the Emergency Department by: [facility] 1723 Chief Complaint Chief Complaint Patient presents with Generalized Body Aches The patient complains of generalized aches and dysuria. Onset of symptoms was HR LEADER around 01 45 per patient, with a continued course since that time. The symptoms are described to be o f mild to moderate severity. The patient also complains of urinary hesitancy, frequency and voiding small amounts. The patient describes the quality and location of the symptoms as th e following: "I just don't feel well". Patient denies any vomiting but states he is nauseate d. Care prior to arrival consisted of nothing, with no relief. Patient denies any chest allen n or shortness of breath, dizziness, head or neck pain, syncope, fever, chills, cough, Sore throat, vomiting or diarrhea. Past Medical History Diagnosis Date Diabetes mellitus type II Atrial fibrillation (HCC) Hypertension Hyperlipidemia Anxiety Depression Renal failure ARF (acute renal failure) ([facility]) 03/02/2013 COPD (chronic obstructive pulmonary disease) ([facility]) 03/02/2013 Development delay Unspecified visual disturbance reading glasses WARD (obstructive sleep apnea) 08/11/2012 does not use CPAP because of the noise GIB (gastrointestinal bleeding) 03/02/[address] Nur, rectal ulcers, nodule of GE junction Hypercholesterolemia 07/08/2013 Obesity, Class I, BMI 30-34.9 07/08/2013 Facial droop 07/08/2013 Basal cell carcinoma 09/26/2012 arm and back Other chronic pain Stroke (HCC) TIA (transient ischemic attack) Past Surgical History Procedure Laterality Date Unlisted procedure arthroscopy Knee surgery rt knee, patella Leg surgery LLE Colonoscopy Cholecystectomy, laparoscopic 09/12/2012 Procedure: LAPAROSCOPIC - CHOLECYSTECTOMY; Surgeon: Jevon Vargas DO; Location: [facility]; Service: General; Laterality: N/A; Abdominal surgery Cholecystectomy Skin cancer excision 10/10/2012 Procedure: EXCISION - SKIN CANCER; Surgeon: Sy Fierro MD; Location: [facility] ; Service: Plastics; Laterality: Left; upper arm and upper back w/frozen section Esophagogastroduodenoscopy 03/03/2013 Procedure: ESOPHAGOGASTRODUODENOSCOPY; Surgeon: Howie Gibson MD; Location: [facility]; S ervice: Gastroenterology; Laterality: N/A; Colonoscopy 03/04/2013 Procedure: COLONOSCOPY; Surgeon: Howie Gibson MD; Location: [facility]; Service: Gastroe nterology; Laterality: N/A; Upper gastrointestinal endoscopy Skin biopsy Hernia repair 07/03/2013 Procedure: LAPAROSCOPIC - HERNIA - INCISIONAL; Surgeon: Jevon Vargas DO; Location: [facility]; Service: General; Laterality: N/A; Skin lesion excision Left 05/05/2014 Procedure: EXCISION - LESION - FROZEN SECTION; Surgeon: Sy Fierro MD; Location: [facility]; Service: Plastics; Laterality: Left; forearm Prior to Admission medications Medication Sig Start Date End Date Taking? Authorizing Provider Albuterol Sulfate (VENTOLIN HFA IN) Inhale 2 puffs into the lungs as needed. 108 mcg/act Historical Provider Rndfk-M-Rntstgrelyrce (BEANO) TABS Take 150 Units by mouth [...] 100 mg by mouth nightly. Historical Provider vifmrdcyb-hfuhhlck-ujhxfpake hydroxide-simethicone Take 40 mLs by mouth daily [...] fever, chills, fatigue, sweats or weight loss Positive for: General malaise Throat: Negative for: mouth sores Cardiovascular/Respiratory: Negative for: chest pain, shortness of breath, cough Gastrointestinal: Negative for: abdominal pain, vomiting, diarrhea, black or bloody stools Genitourinary: Negative for: hematuria Positive for: Dysuria, urinary frequency, voiding small amounts Musculoskeletal: Negative for: arthralgias Positive for: Generalized aches Skin: Negative for: laceration or lesion Neuro and psych: Negative for: fainting, head injury, seizure, trouble walking Physical Exam Physical Exam BP 175/84 | Pulse 80 | Temp(Src) 98.1 F (36.7 C) (Temporal) | Resp 14 | Wt 112.038 kg ( 247 lb) | SpO2 94% BP 140/70 | Pulse 66 | Temp(Src) 97.1 F (36.2 C) (Oral) | Resp 16 | Wt 112.038 kg (247 lb) | SpO2 91% Pulse Oximetry interpretation: Normal, Vital signs: elevated blood pressure, otherwise norm al. Repeat vital signs with elevated blood pressure, improved from initial, otherwise normal . General: Alert, oriented 3 in mild apparent distress. Nontoxic in appearance. Following c ommands. Responding appropriately to external stimuli Eyes: Normal inspection, pupils equal and round, non-icteric Neck: Normal inspection Supple No meningismus Cardiovascular: Rate and rhythm normal No murmurs Respiratory: Breath sounds normal bilaterally, symmetrical chest rise and fall, unlabored r espirations. No cough on exam Abdomen: Soft, non-distended, generalized abdominal mild TTP (states his whole body hurts a nywhere I touch) No guarding or rebound Skin: Color normal Warm and dry No rash Neuro: No motor deficit No sensory deficit Normal gait GSC 15 ED Course Medical Decision Making and Emergency Department Course ED Department Course 0212--Care initiated After introducing myself to the patient, I have performed a careful history and physical ex amination. I have formulated the differential diagnosis that needs to be addressed during t his Emergency Room visit, briefly discussed this differential with the patient which include s UTI, seizures, sepsis, bacteremia, dehydration, metabolic abnormality, appendicitis, pancr eatitis, gastritis, GERD, gastroenteritis, viral syndrome, influenza, [place], arrhythmia, ACS, p neumonia, acute renal failure, or other as partial list of diagnoses I then discussed with them the plan of care. I have also addressed the risks and benefits of all diagnostic and treatment modalities planned for this ED visit. 0224- I will check labs, urinalysis, normal saline bolus, troponin and EKG to begin work up . Tylenol for generalized aches 0330- urine analysis with small leukocyte. Urine microscopy consistent with UTI, WBC 16-25, epithelial 6-10. Culture pending. 0400- normal lipase, no leukocytosis. Metabolic panel mild hypokalemia 3.4 but otherwise un remarkable, normal troponin. Cipro ordered for UTI 0500- discharge instructions written with prescription Cipro. Patient's INR is subtherapeut ic at 1.2 for his atrial fibrillation/TIA. Discussed with attending physician, Dr. Kwong - patient cannot recall if he took his Coumadin yesterday and states he forgets sometimes. Pat tio states he cannot give himself Lovenox injections. Will give dose of Coumadin here now a nd patient will call his doctor Later today to discuss sub-therapeutic level and plan for d osing and re-check. Patient states feeling improved after fluids and medications. Nontoxic, well-appearing, afebrile. Zofran for nausea Protonix for upper abdominal pain - may take in addition or in exchange of a Zantac Bentyl for abdominal cramping Follow up with primary care provider for re-check Follow up with GI and possible endoscopy Return here for worsening symptoms as we [...] medical records. Nursing notes. Previous radiology studies. Labs & Radiology Results Laboratory Evaluation Results Procedure Component Value Ref Range Date/Time Lipase [[id number]] Collected: 07/09/14322 Order Status: Completed Updated: 07/09/14342 Specimen Information: Blood LIPASE 121 73 - 393 U/L Cardiac Panel [[id number]] (Abnormal) Collected: 07/09/14322 Order Status: Completed Updated: 07/09/14342 WBC 9.33 3.80 - 11.00 K/uL RBC 4.82 4.20 - 5.70 M/uL HGB 12.3 (L) 13.2 - 17.0 g/dL HCT 37.7 (L) 39.0 - 50.0 % MCV 78.3 (L) 80.0 - 100.0 fl MCH 25.5 (L) 27.0 - 34.0 pg MCHC 32.6 32.0 - 35.5 g/dL RDW SD 46.4 37 - 53 fl PLT 254 150 - 400 K/uL MPV 7.5 fl DIFF TYPE AUTOMATED NEUTROPHILS 60.90 % LYMPHOCYTES 25.10 % MONOCYTES 11.37 % EOSINOPHILS 2.04 % BASOPHILS 0.59 % NEUTROPHILS ABS 5.68 1.90 - 7.40 K/uL LYMPHOCYTES ABS 2.34 1.00 - 3.90 K/uL MONOCYTES ABS 1.06 (H) 0.00 - 0.80 K/uL EOSINOPHILS ABS 0.19 0.00 - 0.50 K/uL BASOPHILS ABS 0.06 0.00 - 0.10 K/uL SODIUM 142 135 - 143 mmol/L POTASSIUM 3.4 (L) 3.5 - 4.9 mmol/L CHLORIDE 107 99 - 109 mmol/L CO2 31 23 - 32 mmol/L ANION GAP AGAP 8 5 - 20 mmol/L GLUCOSE 100 (H) 65 - 99 mg/dL BUN 12 8 - 25 mg/dL CREATININE 1.04 0.70 - 1.30 mg/dL BUN/CREAT 12 CALCIUM 8.5 8.5 - 10.5 mg/dL TOTAL PROTEIN 7.1 6.3 - 8.2 g/dL Albumin 3.5 (L) 3.6 - 5.0 g/dL GLOBULIN 3.7 1.3 - 4.9 g/dL A/G 0.9 (L) 1.0 - 2.4 TBIL 0.3 0.1 - 1.5 mg/dL ALK PHOS 80 35 - 115 U/L AST 26 10 - 45 U/L ALT 21 10 - 65 U/L EGFR >60 >60 mL/min/1.73m2 CPK 211 55 - 400 U/L INR 1.2 APTT 30 23 - 32 seconds MMB 3.0 0.5 - 3.6 ng/mL CK-MB Index 1.4 Troponin I, Lab [[id number]] Collected: 07/09/14322 Order Status: Completed Updated: 07/09/14342 Specimen Information: Blood TROPONIN I <0.020 0.00 - 0.10 ng/mL Urine microscopic only [[id number]] (Abnormal) Collected: 07/09/14300 Order Status: Completed Updated: 07/09/14325 WBC 16-25 0 - 5 /hpf RBC 1-5 0 - 2 /hpf EPITHELIAL 6-10 /lpf BACTERIA TRACE (A) NONE SEEN Urinalysis Comments CULTURE TO FOLLOW Urinalysis (reflex to microscopic/reflex to culture) [[id number]] (Abnormal) Collected: 07/09/14300 Order Status: Completed Updated: 07/09/14325 Specimen Information: Urine, Clean Catch COLOR UA YELLOW CLARITY CLEAR Specific [place], UA 1.010 1.001 - 1.035 LEUKOCYTE ESTERASE SMALL (A) NEGATIVE NITRITE NEGATIVE NEGATIVE UROBILINOGEN 0.2 <1.1 mg/dL PROTEIN NEGATIVE NEGATIVE mg/dL PH,URINE 6.5 4.6 - 8.0 BLOOD NEGATIVE NEGATIVE KETONES NEGATIVE NEGATIVE mg/dL BILIRUBIN NEGATIVE NEGATIVE GLUCOSE NEGATIVE NEGATIVE mg/dL Radiology and EKG Evaluation Imaging Results None Diagnosis & Disposition ED Diagnoses Final diagnoses UTI (lower urinary tract infection) Malaise Dysuria Anemia, unspecified anemia type Subtherapeutic international normalized ratio (INR) Disposition: ED Disposition Orders Discharge Condition at discharge: Stable Follow-up Information Follow up With Details Comments Contact Info Jerrell Diego DO Call Make follow-up appointment later today with primary care provide r for recheck of INR and plan [address] [place] [address] [facility] [id number] [facility] Emergency Department Return here for worsening symptoms as they have discussed [address] [facility] [id number] Discharge Medications: Discharge Medication List as of 07/09/2014 5:36 AM START taking these medications Details ciprofloxacin (CIPRO) 500 MG tablet Take 1 tablet by mouth 2 (two) times daily., Starting , Until 07/12/14, Print CITLALY Rosario 07/09/14 0650 Mik Kwong MD 07/09/14 4106 onversion Chin ledesma, Provider Unknown - 07/09/2014 2:09 AM PDT ED Notes by Elroy Nowak RN at 07/09/14208 Author: Elroy Nowak RN Service: (none) Author Type: Registered Nurse Filed: 07/09/14208 Date of Service: 07/09/14208 Status: Signed Broom Worker: Elroy Nowak RN (Registered Nurse) Bed: [facility] Expected date: Expected time: Means of arrival: Comments: Welcome to... docume nted in this encounter Plan of Treatment +--------+---------+ + + + | Date | Type | Specialty | Care Team | Description | +--------+---------+ + + + | 09/10/ | Office | Geriatric Medicine | Mireya Pack, | | | 2019 | Visit | | ACCOUNTS PAYABLE OR RECEIVABLE CLERK [address] | | | | | | [address] [place], | | | | | | [place] [address] | | | | | | [phone] | | | | | | | | +--------+---------+ + + + | 09/29/ | Office | Urology | Mireya Pack, | | | 2020 | Visit | | ACCOUNTS PAYABLE OR RECEIVABLE CLERK [address] | | | | | | [address] [place], | | | | | | [place] [address] | | | | | | [phone] | | | | | | | | | | | | Toy Wild, DO | | | | | | [address] | | | | | | [place] [address] | | | | | | [phone] | | | | | | | | +--------+---------+ + + + documented as of this encounter Procedures + +--------+ + + + | Procedure Name | Priori | Date/Time | Associated Diagnosis | Comments | | | ty | | | | + +--------+ + + + | ECG 12 LEAD | Routin | 07/09/2014 | | Results for this | | | e | 3:28 AM | | procedure are in the | | | | PDT | | results section. | + +--------+ + + + | HISTORICAL LAB PANEL | Routin | 07/09/2014 | | Results for this | | RESULT | e | 3:23 AM | | procedure are in the | | | | PDT | | results section. | + +--------+ + + + | TROPONIN I | Routin | 07/09/2014 | | Results for this | | | e | 3:23 AM | | procedure are in the | | | | PDT | | results section. | + +--------+ + + + | LIPASE | Routin | 07/09/2014 | | Results for this | | | e | 3:23 AM | | procedure are in the | | | | PDT | | results section. | + +--------+ + + + | URINALYSIS, REFLEX | Routin | 07/09/2014 | | Results for this | | MICROSCOPIC AND/OR | e | 3:01 AM | | procedure are in the | | CULTURE | | PDT | | results section. | + +--------+ + + + | URINALYSIS, | Routin | 07/09/2014 | | Results for this | | MICROSCOPIC ONLY | e | 3:01 AM | | procedure are in the | | | | PDT | | results section. | + +--------+ + + + | CULTURE, URINE | Routin | 07/09/2014 | | Results for this | | | e | 3:01 AM | | procedure are in the | | | | PDT | | results section. | + +--------+ + + + documented in this encounter Results ECG 12 lead (07/09/2014 3:28 AM PDT) + + + + + [...] | | | | | ECG of 16-MAY-2014 | | | | | | 11:47,Premature atrial | | | | | | [...] | | | | | copy editor ZAYNAB HUNT | | | | | | (4) on 07/09/2014 1:23:46 | | | | | | PM | | | | + + + + + + + + | Specimen | + + | | + + + + + | Narrative | Performed At | + + + | Historically converted procedure from [facility] Epic environment | EXTERNAL LAB | + + + + +---------+ + + | Performing | Address | City/State/Zipcode | Phone Number | | Organization | | | | + +---------+ + + | EXTERNAL LAB | | | | + +---------+ + + HISTORICAL LAB PANEL RESULT (07/09/2014 3:23 AM PDT) + + + + + -+ | Component | Value | Ref Range | Performed | Pathologist | | | | | At | Signature | + + + + + -+ | WBC | 9.33Comment: Testing | 3.80 - 11.00 | EXTERNAL | | | | performed at [facility] | K/uL | LAB | | | | [address];[place] | | | | | | [address] | | | | + + + + + -+ | Non- | 4.82Comment: Testing | 4.20 - 5.70 | EXTERNAL | | | Red Blood | performed at [facility] | M/uL | LAB | | | Cells | [address];[place] | | | | | Counted | [id number] | | | | + + + + + -+ | Hemoglobin | 12.3 (L)Comment: Testing | 13.2 - 17.0 | EXTERNAL | | | | performed at [facility] | g/dL | LAB | | | | [address];[place] | | | | | | [address] | | | | + + + + + -+ | Hematocrit, | 37.7 (L)Comment: Testing | 39.0 - 50.0 % | EXTERNAL | | | POC | performed at [facility] [place] | | LAB | | | | [address];[place] | | | | | | [address] | | | | + + + + + -+ | MCV | 78.3 (L)Comment: Testing | 80.0 - 100.0 fl | EXTERNAL | | | | performed at [facility] [place] | | LAB | | | | [address];[place] | | | | | | [address] | | | | + + + + + -+ | MCH | 25.5 (L)Comment: Testing | 27.0 - 34.0 pg | EXTERNAL | | | | performed at [facility] [place] | | LAB | | | | [address];[place] | | | | | | [address] | | | | + + + + + -+ | MCHC | 32.6Comment: Testing | 32.0 - 35.5 | EXTERNAL | | | | performed at [facility] [place] | g/dL | LAB | | | | [address];[place] | | | | | | [address] | | | | + + + + + -+ | RDW-CV | 46.4Comment: Testing | 37 - 53 fl | EXTERNAL | | | | performed at [facility] [place] [place] | | LAB | | | | [address];[place] | | | | | | [address] | | | | + + + + + -+ | Platelet | 254Comment: Testing | 150 - 400 K/uL | EXTERNAL | | | Count | performed at [facility] [place] [place] | | LAB | | | Plasma | [address];[place] | | | | | | [address] | | | | + + + + + -+ | MPV | 7.5Comment: Testing | fl | EXTERNAL | | | | performed at [facility] | | LAB | | | | [address];[place] | | | | | | [address] | | | | + + + + + -+ | Differentia | AUTOMATEDComment: | | EXTERNAL | | | l Type | Testing performed at | | LAB | | | | [facility] | [address];[place] [address] | | | | + + + + + -+ | % Segmented | 60.90Comment: Testing | % | EXTERNAL | | | | performed at [facility] | | LAB | | | Neutrophils | [address];[place] | | | | | | [address] | | | | + + + + + -+ | % | 25.10Comment: Testing | % | EXTERNAL | | | Lymphocytes | performed at [facility] [place] | | LAB | | | | [address];[place] | | | | | | [address] | | | | + + + + + -+ | % Monocytes | 11.37Comment: Testing | % | EXTERNAL | | | | performed at [facility] [place] [place] | | LAB | | | | [address];[place] | | | | | | [address] | | | | + + + + + -+ | % | 2.04Comment: Testing | % | EXTERNAL | | | Eosinophils | performed at [facility] [place] | | LAB | | | | [address];[place] | | | | | | [address] | | | | + + + + + -+ | % Basophils | 0.59Comment: Testing | % | EXTERNAL | | | | performed at [facility] [place] [place] | | LAB | | | | [address];[place] | | | | | | [address] | | | | + + + + + -+ | Absolute | 5.68Comment: Testing | 1.90 - 7.40 | EXTERNAL | | | Segmented | performed at [facility] [place] | K/uL | LAB | | | Neutrophils | [address];[place] | | | | | | [address] | | | | + + + + + -+ | Absolute | 2.34Comment: Testing | 1.00 - 3.90 | EXTERNAL | | | Lymphocytes | performed at [facility] | K/uL | LAB | | | | [address];[place] | | | | | | [address] | | | | + + + + + -+ | Absolute | 1.06 (H)Comment: Testing | 0.00 - 0.80 | EXTERNAL | | | Monocytes | performed at [facility] [place] [place] | K/uL | LAB | | | | [address];[place] | | | | | | [address] | | | | + + + + + -+ | Absolute | 0.19Comment: Testing | 0.00 - 0.50 | EXTERNAL | | | Eosinophils | performed at [facility] [place] [place] | K/uL | LAB | | | | [address];[place] | | | | | | [address] | | | | + + + + + -+ | Absolute | 0.06Comment: Testing | 0.00 - 0.10 | EXTERNAL | | | Basophils | performed at [facility] | K/uL | LAB | | | | [address];[place] | | | | | | [address] | | | | + + + [...] [place] | | | | | | [address] | | | | + + + + + -+ | Cl | 107Comment: Testing | 99 - 109 mmol/L | EXTERNAL | | | | performed at [facility] | | LAB | | | | [address];[place] | | | | | | [address] | | | | + + + + + -+ | CO2 | 31Comment: Testing | 23 - 32 mmol/L | EXTERNAL | | | | performed at [facility] | | LAB | | | | [address];[place] | | | | | | [address] | | | | + + + + + -+ | Anion Gap | 8Comment: Testing | 5 - 20 mmol/L | EXTERNAL | | | | performed at [facility] [place] [place] | | LAB | | | | [address];[place] | | | | | | [address] | | | | + + + + + -+ | Glucose, | 100 (H)Comment: Testing | 65 - 99 mg/dL | EXTERNAL | | | Fasting | performed at [facility] [place] [place] | | LAB | | | | [address];[place] | | | | | | [address] | | | | + + + + + -+ | BUN | 12Comment: Testing | 8 - 25 mg/dL | EXTERNAL | | | | performed at [facility] | | LAB | | | | [address];[place] | | | | | | [address] | | | | + + + + + -+ | Creatinine | 1.04Comment: Testing | 0.70 - 1.30 | EXTERNAL | | | | performed at [facility] | mg/dL | LAB | | | | [address];[place] | | | | | | [address] | | | | + + + + + -+ | BUN/Creatin | 12Comment: Testing | | EXTERNAL | | | ine Ratio | performed at [facility] | | LAB | | | | [address];[place] | | | | | | [address] | | | | + + + + + -+ | Calcium | 8.5Comment: Testing | 8.5 - 10.5 | EXTERNAL | | | | performed at [facility] | mg/dL | LAB | | | | [address];[place] | | | | | | [address] | | | | + + + + + -+ | Protein, | 7.1Comment: Testing | 6.3 - 8.2 g/dL | EXTERNAL | | | Total | performed at [facility] | | LAB | | | | [address];[place] | | | | | | [address] | | | | + + + + + -+ | Albumin | 3.5 (L)Comment: Testing | 3.6 - 5.0 g/dL | EXTERNAL | | | | performed at [facility] | | LAB | | | | [address];[place] | | | | | | [address] | | | | + + + + + -+ | Globulin | 3.7Comment: Testing | 1.3 - 4.9 g/dL | EXTERNAL | | | | performed at [facility] [place] [place] | | LAB | | | | [address];[place] | | | | | | [address] | | | | + + + + + -+ | A/G Ratio | 0.9 (L)Comment: Testing | 1.0 - 2.4 | EXTERNAL | | | | performed at [facility] [place] [place] | | LAB | | | | [address];[place] | | | | | | [address] | | | | + + + + + -+ | Bilirubin | 0.3Comment: Testing | 0.1 - 1.5 mg/dL | EXTERNAL | | | Total | performed at [facility] | | LAB | | | | [address];[place] | | | | | | [address] | | | | + + + + + -+ | ALP, | 80Comment: Testing | 35 - 115 U/L | EXTERNAL | | | External | performed at [facility] | | LAB | | | | [address];[place] | | | | | | [address] | | | | + + + + + -+ | AST | 26Comment: Testing | 10 - 45 U/L | EXTERNAL | | | | performed at [facility] [place] | | LAB | | | | [address];[place] | | | | | | [address] | | | | + + + + + -+ | ALT | 21Comment: Testing | 10 - 65 U/L | EXTERNAL | | | | performed at [facility] | | LAB | | | | [address];[place] | | | | | | [address] | | | | + + + [...] | | | | | [address];[place] [address] | | | | + + + + + -+ | CK, Total | 211Comment: Testing | 55 - 400 U/L | EXTERNAL | | | | performed at [facility] | | LAB | | | | [address];[place] | | | | | | [address] | | | | + + + [...] [place] | | | | | | [address] | | | | + + + + + -+ | aPTT, | 30Comment: Testing | 23 - 32 seconds | EXTERNAL | | | Patient | performed at [facility] | | LAB | | | | [address];[place] | | | | | | [address] | | | | + + + + + -+ | CK-MB | 3.0Comment: Testing | 0.5 - 3.6 ng/mL | EXTERNAL | | | | performed at [facility] | | LAB | | | | [facility];[place], [place] | | | | | | [address] | | | | + + + [...] | + +---------+ + + Troponin I (07/09/2014 3:23 AM PDT) + + + + + [...] performed at [facility] | | | | | | [address];[place], [place] | | | | | | [address] | | | | + + + + + + + + | Specimen | + + | Blood specimen | | (specimen) | + + + +---------+ + + | Performing | Address | City/State/Zipcode | Phone Number | | Organization | | | | + +---------+ + + | EXTERNAL LAB | | | | + +---------+ + + Lipase (07/09/2014 3:23 AM PDT) + + + + + + | Component | Value | Ref Range | Performed | Pathologist | | | | | At | Signature | + + + + + + | Lipase | 121Comment: Testing | 73 - 393 U/L | EXTERNAL | | | | performed at [facility] | | LAB | | | | [facility];[place], [place] | | | | | | [address] | | | | + + + + + + + + | Specimen | + + | Blood specimen | | (specimen) | + + + +---------+ + + | Performing | Address | City/State/Zipcode | Phone Number | | Organization | | | | + +---------+ + + | EXTERNAL LAB | | | | + +---------+ + + Culture, Urine (07/09/2014 3:01 AM PDT) + + | Specimen | + + | | + + + + + | Narrative | Performed At | + + + | Specimen Description URINE, COLLECTION NOT | EXTERNAL LAB | | GIVEN CULTURE <10,000 CFU/ML | | | MIXED GRAM | | | POSITIVE AND GRAM NEGATIVE DIDI | | | NO FURTHER WORKUP | | | Testing performed at [facility], [address] [place] [address], | | | [place] [address] | | + + + + +---------+ + + | Performing | Address | City/State/Zipcode | Phone Number | | Organization | | | | + +---------+ + + | EXTERNAL LAB | | | | + +---------+ + + Urinalysis, Reflex Microscopic and/or Culture (07/09/2014 3:01 AM PDT) + + + + + + | Component | Value | Ref Range | Performed | Pathologist | | | | | At | Signature | + + + + + + | Color | YELLOWComment: Testing | | EXTERNAL | | | | performed at [facility] | | LAB | | | | [address];[place] | | | | | | [address] | | | | + + + + + + | Clarity, | CLEARComment: Testing | | EXTERNAL | | | Urine | performed at [facility] | | LAB | | | | [address];[place] | | | | | | [address] | | | | + + + + + + | Specific | 1.010Comment: Testing | 1.001 - 1.035 | EXTERNAL | | | [place], | performed at [facility] | | LAB | | | Urine | [address];[place] | | | | | | [address] | | | | + + + + + + | Leukocyte | SMALL (A)Comment: | | EXTERNAL | | | Esterase, | Testing performed at | | LAB | | | Urine | [facility] | | | [address];[place] [address] | | | | + + + + + + | Nitrite, | NEGATIVEComment: Testing | | EXTERNAL | | | Urine | performed at [facility];[address] | | LAB | | | | [address];[place] | | | | | | [address] | | | | + + + + + + | Urobilinoge | 0.2Comment: Testing | mg/dL | EXTERNAL | | | n, Urine | performed at [facility] | | LAB | | | | [address];[place] | | | | | | [address] | | | | + + + + + + | Protein, | NEGATIVEComment: Testing | mg/dL | EXTERNAL | | | Urine | performed at [facility] | | LAB | | | | [address];[place] | | | | | | [address] | | | | + + + + + + | pH, Urine | 6.5Comment: Testing | 4.6 - 8.0 | EXTERNAL | | | | performed at [facility] | | LAB | | | | [address];[place] | | | | | | [address] | | | | + + + + + + | Blood, | NEGATIVEComment: Testing | | EXTERNAL | | | Urine | performed at [facility] | | LAB | | | | [address];[place] | | | | | | [address] | | | | + + + + + + | Ketones | NEGATIVEComment: Testing | mg/dL | EXTERNAL | | | | performed at [facility] | | LAB | | | | [address];[place] | | | | | | [address] | | | | + + + + + + | Bilirubin, | NEGATIVEComment: Testing | | EXTERNAL | | | Urine | performed at [facility] | | LAB | | | | [address];[place] | | | | | | [address] | | | | + + + + + + | Glucose, | NEGATIVEComment: Testing | mg/dL | EXTERNAL | | | Urine | performed at [facility] | | LAB | | | | [address];[place] | | | | | | [address] | | | | + + + + + + + + | Specimen | + + | | + + + +---------+ + + | Performing | Address | City/State/Zipcode | Phone Number | | Organization | | | | + +---------+ + + | EXTERNAL LAB | | | | + +---------+ + + Urinalysis, Microscopic Only (07/09/2014 3:01 AM PDT) + + + + + + | Component | Value | Ref Range | Performed | Pathologist | | | | | At | Signature | + + + + + + | WBC, UA | 16-25Comment: Testing | 0 - 5 /hpf | EXTERNAL | | | | performed at [facility] | | LAB | | | | [address];[place] | | | | | | [address] | | | | + + + + + + | RBC, UA | 1-5Comment: Testing | 0 - 2 /hpf | EXTERNAL | | | | performed at [facility];[address] | | LAB | | | | [address];[place] | | | | | | [address] | | | | + + + + + + | Epithelial | 6-10Comment: Testing | /lpf | EXTERNAL | | | Cells | performed at [facility];[address] | | LAB | | | | [address];[place] | | | | | | [address] | | | | + + + + + + | Bacteria, | TRACE (A)Comment: | | EXTERNAL | | | UA | Testing performed at | | LAB | | | | [facility];[address];[place] [address] | | | | + + + + + + | Urinalysis | CULTURE TO | | EXTERNAL | | | Comments | FOLLOWComment: Testing | | LAB | | | | performed at [facility];[address] | | | | | | [address];[place] | | | | | | [address] | | | | + + + [...] + | Diagnosis | + + | UTI (lower urinary tract infection) Urinary tract infection, site not specified | + + | Malaise Other malaise and fatigue | + + | Dysuria | + + | Anemia, unspecified anemia type | + + | Subtherapeutic international normalized ratio (INR) Abnormal coagulation profile | + + documented in this encounter
--- OUTSIDE RECORDS SUMMARY | ~2019-09-09 | XMS | Encounter Summary ---
Demographics + + + | Address | [address] | | | [place] [address] | + + + | Home Phone [...] + | Sammi Kohler | ECON | [place] [address] | | + + + + + Care Team Providers + +------+ + | Care Fullerette Name | Role | Phone | + +------+ + PCP | Unavailable | + +------+ + Encounter Details +--------+ + + + + | Date | Type | Department | Care Team | Description | +--------+ + + + + | 10/15/ | Hospital | [facility] | Conversion | | | 2014 | Encounter | [facility] | Transaction, | | | | | CLINICAL DECISION | Provider Unknown | | | | | [address] | [phone] | | | | | [place], [place] | | | | | | [address] | Thang Sterling MD | | | | | [phone] | [address] | | | | | | [place] [address] | | | | | | [phone] | | | | | | | [...] Note by Katerine Washington RN at 10/15/13 143 Author: Katerine Washington RN Service: (none) Author Type: Registered Nurse Filed: 10/15/131434 Date of Service: 10/15/131433 Status: Signed Macadam Raker: Katerine Washington RN (Registered Nurse) Pt discharged. IV removed. Instructions given and pt states understanding. No c/o at this time. Discharged with family onver ivana Transaction, Provider Unknown - 10/15/2013 11:39 AM PDT Progress Notes by Breanne Elmore RPH at 10/15/131138 Author: Breanne Elmore RPH Service: (none) Author Type: Pharmacist Filed: 10/15/131138 Date of Service: 10/15/131138 Status: Signed Macadam Raker: Breanne Elmore RPH (Pharmacist) Renal Dosing Monitoring: Kevyn Guzman 57 y.o. male Pharmacy dosing for renal function per Dr. Sterling SCr 1.01, est. CrCl = 100 ml/min Plan per protocol: Medications dosed appropriately for current renal function. Pharmacy will continue monitoring patient for appropriate dosing per renal function. 10/15/2013 11:39 AM Pharmacist: Breanne Elmore docume nted in this encounter H&P Notes Thang Sterling MD - 10/15/2013 10:45 AM PDTFormatting of this note might be different from t he original. H&P by Thang Sterling MD at 10/15/13 104 Author: Thang Sterling MD Service: Cardiology Author Type: Physician Filed: 10/15/13 1049 Date of Service: 10/15/13 104 Status: Signed Macadam Raker: Thang Sterling MD (Physician) CHIEF COMPLAINT: Chief Complaint Patient presents with Chest Pain seen at [facility] HISTORY OF PRESENT ILLNESS: Kevyn Guzman is [...] activities. He visited the emergency room at [facility] multiple times with chest discomfort. He was prescribed nitroglycer in and he is not totally sure if the nitroglycerin would help him at all. He tells me isaias frye they give him a nitroglycerin at the facility that he lives in and they take him to the emergency room. Reviewing his chart, he had 2 stress tests over the past couple of years, the last one in [facility] which suggested relatively benign findings, although a [...] was taken to the emergency room at [facility] where a CT scan suggested no significant [...] will h elp for rate control. THANG STERLING MD 10/09/2013 [facility] Service: Cardiology Pre-Operative History & Physical Interval Update There have been no significant clinical changes since the completion of the provided H&P. Please see scanned copy. THANG STERLING MD 10/15/2013 10:49 AM *CORE MEASURES REMINDER: [...] | | 2019 | Visit | | COMMAND AND CONTROL SPECIALIST [address] | | | | | | [address] [place], | | | | | | [place] [address] | | | | | | [phone] | | | | | | | | +--------+---------+ + + + | 09/29/ | Office | Urology | Mireya Pack, | | 2019 | Visit | | COMMAND AND CONTROL SPECIALIST [address] | | | | | | [address] [place], | | | | | | [place] [address] | | | | | | [phone] | | | | | | | | | | | | [place], | | | | | | [address] [facility] | | | | | | [place] [address] | | | | | | [phone] | | | | | | | [...] | EXTERNAL LAB: EVE | Routin | 10/15/2013 | | Results [...] | | | Fingerstick | performed at [facility];[address] | | LAB | | | | [address];[place], [place] | | | | | | [address] | | | | + + + [...] [place] | | | | | | [address] | | | | + + + + + + | Non- | 5.34Comment: Testing | 4.20 - 5.70 | EXTERNAL | | | Red Blood | performed at [facility];[address] | M/uL | LAB | | | Cells | [address];[place] | | | | | Counted | [id number] | | | | + + + + + + | Hemoglobin | 14.3Comment: Testing | 13.2 - 17.0 | EXTERNAL | | | | performed at [facility];[address] | g/dL | LAB | | | | [address];[place] | | | | | | [address] | | | | + + + + + + | Hematocrit, | 42.9Comment: Testing | 39.0 - 50.0 % | EXTERNAL | | | POC | performed at [facility];[address] | | LAB | | | | [address];[place] | | | | | | [address] | | | | + + + + + + | MCV | 80.3Comment: Testing | 80.0 - 100.0 fl | EXTERNAL | | | | performed at [facility];[address] | | LAB | | | | [address];[place] | | | | | | [address] | | | | + + + + + + | MCH | 26.8 (L)Comment: Testing | 27.0 - 34.0 pg | EXTERNAL | | | | performed at [facility];[address] | | LAB | | | | [address];[place] | | | | | | [address] | | | | + + + [...] [place] | | | | | | [address] | | | | + + + + + + | Platelet | 347Comment: Testing | 150 - 400 K/uL | EXTERNAL | | | Count | performed at [facility];[address] | | LAB | | | Plasma | [address];[place] | | | | | | [address] | | | | + + + + + + | MPV | 7.3Comment: Testing | fl | EXTERNAL | | | | performed at [facility];[address] | | LAB | | | | [address];[place] | | | | | | [address] | | | | + + + + + + | Differentia | AUTOMATEDComment: | | EXTERNAL | | | l Type | Testing performed at | | LAB | | | | [facility];[address];[place] [address] | | | | + + + + + + | % Segmented | 56.8Comment: Testing | % | EXTERNAL | | | | performed at [facility];[address] | | LAB | | | Neutrophils | [address];[place] | | | | | | [address] | | | | + + + + + + | % | 30.9Comment: Testing | % | EXTERNAL | | | Lymphocytes | performed at [facility];[address] | | LAB | | | | [address];[place] | | | | | | [address] | | | | + + + [...] [place] | | | | | | [address] | | | | + + + + + + | % Basophils | 0.6Comment: Testing | % | EXTERNAL | | | | performed at [facility];[address] | | LAB | | | | [address];[place] | | | | | | [address] | | | | + + + + + + | Absolute | 5.5Comment: Testing | 1.9 - 7.4 K/uL | EXTERNAL | | | Segmented | performed at [facility];[address] | | LAB | | | Neutrophils | [address];[place] | | | | | | [address] | | | | + + + + + + | Absolute | 3.0Comment: Testing | 1.0 - 3.9 K/uL | EXTERNAL | | | Lymphocytes | performed at [facility];[address] | | LAB | | | | [address];[place] | | | | | | [address] | | | | + + + + + + | Absolute | 0.8Comment: Testing | 0 - 0.8 K/uL | EXTERNAL | | | Monocytes | performed at [facility];[address] | | LAB | | | | [address];[place] | | | | | | [address] | | | | + + + + + + | Absolute | 0.3Comment: Testing | 0 - 0.5 K/uL | EXTERNAL | | | Eosinophils | performed at [facility];[address] | | LAB | | | | [address];[place] | | | | | | [address] | | | | + + + + + + | Absolute | 0.1Comment: Testing | 0 - 0.1 K/uL | EXTERNAL | | | Basophils | performed at [facility];[address] | | LAB | | | | [address];[place], [place] | | | | | | [address] | | | | + + + [...] [place] | | | | | | [address] | | | | + + + + + + | K | 3.7Comment: Testing | 3.5 - 4.9 | EXTERNAL | | | | performed at [facility];[address] | mmol/L | LAB | | | | [address];[place] | | | | | | [address] | | | | + + + + + + | Cl | 106Comment: Testing | 99 - 109 mmol/L | EXTERNAL | | | | performed at [facility];[address] | | LAB | | | | [address];[place] | | | | | | [address] | | | | + + + + + + | CO2 | 29Comment: Testing | 23 - 32 mmol/L | EXTERNAL | | | | performed at [facility];[address] | | LAB | | | | [address];[place] | | | | | | [address] | | | | + + + + + + | Anion Gap | 9Comment: Testing | 5 - 20 mmol/L | EXTERNAL | | | | performed at [facility];[address] | | LAB | | | | [address];[place] | | | | | | [address] | | | | + + + + + + | Glucose, | 112 (H)Comment: Testing | 65 - 99 mg/dL | EXTERNAL | | | Fasting | performed at [facility];[address] | | LAB | | | | [address];[place] | | | | | | [address] | | | | + + + [...] [place] | | | | | | [address] | | | | + + + + + + | BUN/Creatin | 17Comment: Testing | | EXTERNAL | | | ine Ratio | performed at [facility];[address] | | LAB | | | | [address];[place] | | | | | | [address] | | | | + + + + + + | Calcium | 9.2Comment: Testing | 8.5 - 10.2 | EXTERNAL | | | | performed at [facility];[address] | mg/dL | LAB | | | | [address];[place] | | | | | | [address] | | | | + + + [...] [address];[place] [address] | | | | + + + [...]
--- OUTSIDE RECORDS SUMMARY | ~2019-09-09 | XMS | Encounter Summary ---
Demographics + + + | Address | [address] | | | [place] [address] | + + + | Home Phone [...] | Sammi Kohler | ECON | [place] [address] | | + + + + + Care Team Providers + +------+ + | Care Siding Stapler Name | Role | Phone | + [...] | | | | | | | ([facility]) | | | | | | | [...] | | | | | | | ([facility]) | | | +--------+--------+ + + + + Encounter Details +--------+ + + + + | Date | Type | Department | Care Team | Description | +--------+ + + + + | 07/02/ | Hospital | [facility] | Marcos Nugent, | Sepsis, due to | | 2019 - | Encounter | [facility] | MD Darrick MAHER | unspecified | | | | CARE FLOOR [address] | [place] [address] | organism, | | 07/04/ | | [address] | [phone] | unspecified whether | | 2019 | | [place], [place] | | acute organ | | | | [address] | Kristian Meadows, | dysfunction present | | | | [phone] | MD Darrick [address] | ([facility]) (Primary Dx); | | | | | [place] [address] | Febrile illness, | | | | | [phone] | acute; Atrial | | | | | | fibrillation with | | | | | Agustín Box MD | RVR ([facility]); Positive | | | | | [address] | blood culture; | | | | | [place] [address] | Chronic obstructive | | | | | [phone] | pulmonary disease, | | | | | | unspecified COPD | | | | | | type ([facility]); | | | | | | Developmental delay; | | | | | | Type 2 diabetes | | | | | | mellitus with | | | | | | hyperglycemia, | | | | | | unspecified whether | | | | | | senior living insulin | | | | | | [...] Physician Discharge Summary Pt: Norah Gr AGE/SEX: 63 y.o. male ROOM: [facility]/8114- PCP: Mireya Pack NP : 1955 [...] Signed by: Irina Gr Shawn Sign Date/Time: 07/03/2019 11:[address] [...] was in his normal state of health [id number]. The patient reported that he had increased [...] later in the night he signed AG [facility]. I did not talk to [...] left AGAINST MEDICAL ADVICE Follow-Up: Mireya Pack, COPY DIRECTOR [address] [address] Signed: Agustín Box MD 07/09/2019 12:15 PM Portions of this chart may have been copied from previous notes for continuity of care purp ose Portions of this chart may have been created with [employer]ant[employer] voice recognition software. Occasi onal wrong-word or sound-alike substitutions may have occurred due to the inherent dangelo itations of voice recognition software. Please read the chart carefully and recognize, using context, where these substitutions have occurred. documented in this enco unter Discharge Instructions AttachmentsThe following attachments cannot be sent through Care Everywhere.Sepsis (Norwegian )Sepsis, Understanding (Norwegian)documented in this encounter Medications at Time of [...] + + +---------+ + + | Low (ACCU-CHEK | 1 each by Other | [...] 8114 with all belongings. Justine Patino RN Agustín cardona MD - 07/05/2019 10:45 AM PDTFormatting of this note might be different from guillermina sarmiento. Service: Hospitalist Progress Note Pt: Norah Gr AGE/SEX: 63 y.o. male ROOM: 91/9109-01 : 1955 PCP: Mireya Pack NP ADMIT [...] F) Oral 74 24 07/05/19 0151 160/70 05/29/20 0146 195/82 07/05/19 0143 195/82 07/04/19 2300 [...] suicida l LABS: Recent Labs Lab 07/05/19 0707/04/19 0411 07/03/19 1008 WBC 9.23 10.24 11.16* HGB 13.0* 13.2 15.7 HCT 38.9* 40.0 47.4 PLT 227 250 294 MONOPCT 9.40 9.00 8.30 Recent Labs Lab 07/05/19 0707/04/19 0411 07/03/19 1008 NA 140 138 139 [...] Impression No active disease. Signed by: Irina Gr, Bhavin Sign Date/Time: 07/03/2019 11:[address] Angiogram [...] this chart may have been created with [employer]ant[employer] voice recognition software. Occasi onal wrong-word or [...] for testing. Justine Patino RN Samantha hunter [facility] - 07/04/2019 1:19 PM PDT Vancomycin Dosing Per Pharmacy Subjective/Objective Norah Gr is a 63 y.o. male started on [...] Procedure Component Value Units Date/Time MRSA NAAT [[id number]] Collected: 07/03/19 1429 Order Status: Completed Lab Status: Final result Updated: 07/03/19 1644 Specimen: Tissue from Nares SOURCE: NARES(NOSE) Result NEGATIVE Comment: Testing performed at [facility];[address] [place] [address] Culture, Urine [[id number]] Collected: 07/03/19 1313 Order Status: Sent Lab Status: In process Updated: 07/03/19 1322 Specimen: Urine, Clean Catch Culture, Blood [[id number]] Collected: 07/03/19 1132 Order Status: Sent Lab Status: In process Updated: 07/03/19 1146 Specimen: Peripheral Blood Coronavirus (COVID-19) NAAT [[id number]] Collected: 07/03/19 1105 Order Status: Completed Lab Status: Final result Updated: 07/03/19 1252 Specimen: Tissue from Nasopharynx SARS-CoV-2, COREY (COVID-19) NEGATIVE Comment: Testing performed at [facility];[address] [place] [address] Respiratory pathogen panel, NAAT [[id number]] Collected: 07/03/19 1105 Order Status: Completed Lab [...] performed by Molecular Methodology Testing performed at [facility], [address] [place] [address] Culture, Blood [[id number]] (Abnormal) Collected: 07/03/19 1050 Order Status: Completed Lab Status: Preliminary result Updated: 07/04/19 0855 Specimen: Blood from Line Special Requests R AC Special Requests Testing performed at [facility];[address] [place] [address] Gram Stain Result -- GRAM POSITIVE COCCI IN CLUSTERS SEEN IN ANAEROBIC BOTTLE Gram Stain Result -- SMEAR RESULTS CALLED TO AND READ BACK BY: FRAN De León AT [facility] 9RP BY SACHI AT 0605 ON 07/04/2019. Gram Stain Result -- GRAM POSITIVE COCCI IN CLUSTERS SEEN IN AEROBIC BOTTLE RESULT CULTURE IN PROGRESS RESULT GROWTH IN TWO OF TWO BOTTLES RESULT -- TIME TO DETECTION: 0.63 DAYS RESULT Testing performed at [facility], [address] [place] [address] Comment: Testing performed at [facility], [address] [place] [address] Recorded Adjusted Metaline Dosing 101.6 kg (223 lb 15.8 oz) [...] following. Please contact us with any questions/concerns. [phone] Agustín Adams MD - 07/04/2019 11:07 AM PDT Service: Hospitalist Progress Note Pt: Norah Gr AGE/SEX: 63 y.o. male ROOM: [facility]- : 1955 PCP: Mireya Pack NP ADMIT [...] Signed by: Irina Gr Shawn Sign Date/Time: 07/03/2019 11:[address] [...] this chart may have been created with SinDelantal[employer]Mx voice recognition software. Occasi onal wrong-word or [...] contact precautions. Thank you! Linda Lester MT ([facility]) Case Management Assistant documented in this e ncounter H&P Notes Lesly Martin ARNP - 07/03/2019 1:46 PM PDTFormatting of this note might be different fro m the original. Pt: Norah Gr AGE/SEX: 63 y.o. 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) use of 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 Obesity, Class I, BMI 30-34.9 07/08/2013 WARD (obstructive sleep apnea) 08/11/2012 does not use CPAP because of the noise Other chronic pain Renal failure Stroke (HCC) TIA (transient ischemic attack) Unspecified visual disturbance reading glasses PSHx: Past Surgical History: Procedure Laterality Date ABDOMEN SURGERY CHOLECYSTECTOMY CHOLECYSTECTOMY, LAPAROSCOPIC 09/12/2012 Procedure: LAPAROSCOPIC - CHOLECYSTECTOMY; Surgeon: Jevon Vargas DO; Location: [facility] MAIN OR; Service: General; Laterality: N/A; COLONOSCOPY COLONOSCOPY 03/04/2013 Procedure: COLONOSCOPY; Surgeon: Howie Gibson MD; Location: [facility] ENDOSCOPY; Service: Gastroen terology; Laterality: N/A; HERNIA REPAIR 07/03/2013 Procedure: LAPAROSCOPIC - HERNIA - INCISIONAL; Surgeon: Jevon Vargas DO; Location: [facility] MAIN OR; Service: General; Laterality: N/A; KNEE SURGERY rt knee, patella LEG SURGERY LLE OTHER SURGICAL HISTORY UNLISTED PROCEDURE ARTHROSCOPY OTHER SURGICAL HISTORY Left 05/05/2014 SKIN LESION EXCISION - Procedure: EXCISION - LESION - FROZEN SECTION; Surgeon: Sy murcia MD; Location: [facility] MAIN OR; Service: Plastics; Laterality: Left; forearm SKIN BIOPSY SKIN CANCER EXCISION Left 10/10/2012 Procedure: EXCISION - SKIN CANCER; Surgeon: Sy Fierro MD; Location: [facility] MAIN OR; Service: Plastics; Laterality: Left; upper arm and upper back w/frozen section UPPER GASTROINTESTINAL ENDOSCOPY UPPER GASTROINTESTINAL ENDOSCOPY 03/03/2013 Procedure: ESOPHAGOGASTRODUODENOSCOPY; Surgeon: Howie Gibson MD; Location: [facility] ENDOSCOPY; Se rvice: Gastroenterology; Laterality: [...] Color, UA STRAW Clarity, UA CLEAR Specific [place], Urine 1.013 1.002 - 1.030 Leukocyte esterase, [...] 07/03/2019 No active disease. Signed by: Irina Gr Shawn Sign Date/Time: 07/03/2019 11:07 AM @ [...] summarized. Code Status: Full Code CITLALY Marrero, [employer] 07/03/2019 1:46 PM Portions of this chart may have been copied from previous notes for continuity of care purp ose. Portions of this chart may have been created with SinDelantal[employer]Mx voice recognition software. Occasi onal wrong-word or [...] MD documented in this encounter Consult Notes Elab Paez MD - 07/04/2019 11:42 AM PDTAssociated Order(s): PROVIDER TO PROVIDER C ONSULT [facility] Service: Infectious Diseases Initial Consult Note Date [...] atrial fibrillation, COPD He presented to the [facility] ER on 07/03/2019 with complaints of chest [...] no PE. COVID-19 PCR sent out to [facility] has been requested. On 07/02, recorded T-max [...] - CHOLECYSTECTOMY; Surgeon: Jevon Vargas DO; Location: [facility] MAIN OR; Service: General; Laterality: N/A; COLONOSCOPY COLONOSCOPY 03/04/2013 Procedure: COLONOSCOPY; Surgeon: Howie Gibson MD; Location: [facility] ENDOSCOPY; Service: Gastroen terology; Laterality: N/A; HERNIA REPAIR 07/03/2013 Procedure: LAPAROSCOPIC - HERNIA - INCISIONAL; Surgeon: Jevon Vargas DO; Location: [facility] MAIN OR; Service: General; Laterality: N/A; KNEE SURGERY rt knee, patella LEG SURGERY LLE OTHER SURGICAL HISTORY UNLISTED PROCEDURE ARTHROSCOPY OTHER SURGICAL HISTORY Left 05/05/2014 SKIN LESION EXCISION - Procedure: EXCISION - LESION - FROZEN SECTION; Surgeon: Sy murcia MD; Location: [facility] MAIN OR; Service: Plastics; Laterality: Left; forearm SKIN BIOPSY SKIN CANCER EXCISION Left 10/10/2012 Procedure: EXCISION - SKIN CANCER; Surgeon: Sy Fierro MD; Location: [facility] MAIN OR; Service: Plastics; Laterality: Left; upper arm and upper back w/frozen section UPPER GASTROINTESTINAL ENDOSCOPY UPPER GASTROINTESTINAL ENDOSCOPY 03/03/2013 Procedure: ESOPHAGOGASTRODUODENOSCOPY; Surgeon: Howie Gibson MD; Location: [facility] ENDOSCOPY; Se rvice: Gastroenterology; Laterality: [...] Lives alone x 1 wk, moved from [facility], , 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 2 falls [...] Color, UA STRAW Clarity, UA CLEAR Specific [place], Urine 1.002 - 1.030 1.013 Leukocyte esterase, [...] IMPRESSION: No active disease. Signed by: Irina Gr, Bhavin Sign Date/Time: 07/03/2019 11:07 AM Medical [...] Second COVID-19 test is being sent out [facility]. With this in process, maintain patient [...] of a bubble pack. I have c [facility] at the [facility] and they informed me that the only [...] at this time. Provider has been notified. Jenifer Ortega RN - 07/03/2019 12:27 PM PDTFood order placed for patient at this time. Electronic ally signed by Jenifer Elmore RN at 07/03/2019 12:27 PM Marcos Delgadillo MD - 07/03/19 20 10:19 AM PDT [facility] Department of Emergency Medicine History of Present Illness Patient Identification Norah Gr is a 63 y.o. male. Patient presented to the Emergency Department by: Chief Complaint Chief Complaint Patient presents with Shortness of Breath Fever (9 Weeks To 74 Years) temp 103 per ems Chest Pain 10:19 AM He has [place] The patient presents to ED with complaints of Chest pain Location: left side Quality:tight chest pain Severity:moderate Context:Patient is still taking Eliquis and states he did not take his dose this morning. P bhavin's chest pain is radiating into his neck. 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) use of 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 Obesity, Class I, BMI 30-34.9 07/08/2013 WARD (obstructive sleep apnea) 08/11/2012 does not use CPAP because of the noise Other chronic pain Renal failure Stroke (HCC) TIA (transient ischemic attack) Unspecified visual disturbance reading glasses Past Surgical History: Procedure Laterality Date ABDOMEN SURGERY CHOLECYSTECTOMY CHOLECYSTECTOMY, LAPAROSCOPIC 09/12/2012 Procedure: LAPAROSCOPIC - CHOLECYSTECTOMY; Surgeon: Jevon Vargas DO; Location: [facility] MAIN OR; Service: General; Laterality: N/A; COLONOSCOPY COLONOSCOPY 03/04/2013 Procedure: COLONOSCOPY; Surgeon: Howie Gibson MD; Location: [facility] ENDOSCOPY; Service: Gastroen terology; Laterality: N/A; HERNIA REPAIR 07/03/2013 Procedure: LAPAROSCOPIC - HERNIA - INCISIONAL; Surgeon: Jevon Vargas DO; Location: [facility] MAIN OR; Service: General; Laterality: N/A; KNEE SURGERY rt knee, patella LEG SURGERY LLE OTHER SURGICAL HISTORY UNLISTED PROCEDURE ARTHROSCOPY OTHER SURGICAL HISTORY Left 05/05/2014 SKIN LESION EXCISION - Procedure: EXCISION - LESION - FROZEN SECTION; Surgeon: Sy murcia MD; Location: [facility] MAIN OR; Service: Plastics; Laterality: Left; forearm SKIN BIOPSY SKIN CANCER EXCISION Left 10/10/2012 Procedure: EXCISION - SKIN CANCER; Surgeon: Sy Fierro MD; Location: [facility] MAIN OR; Service: Plastics; Laterality: Left; upper arm and upper back w/frozen section UPPER GASTROINTESTINAL ENDOSCOPY UPPER GASTROINTESTINAL ENDOSCOPY 03/03/2013 Procedure: ESOPHAGOGASTRODUODENOSCOPY; Surgeon: Howie Gibson MD; Location: [facility] ENDOSCOPY; Se rvice: Gastroenterology; Laterality: [...] times daily (with breakfast & dinner). 11/07/18 Mrieya Pack NP NIFEdipine (ADALAT CC) 60 MG 24 hr tablet TAKE ONE TABLET BY MOUTH DAILY 06/28/19 Mireya Pack NP omeprazole (PRILOSEC) 20 mg capsule TAKE ONE CAPSULE BY MOUTH EVERY MORNING (BEFORE ) 06/28/19 Mireya Pack NP tamsulosin (FLOMAX) 0.4 [...] file Gets together: Not on file Attends [employer] service: Not on file Active member of [...] Lives alone x 1 wk, moved from [facility], , 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 2 falls [...] I spoke with Dr. Arnaud Davis on-call trade mark attorney I spoken to the primary's office, he had seen Dr. Sterling in January 2019 he was referred to [facility], but patient had declined that visit wit hout any explanation So patient currently does not have a trade mark attorney, cardiac medications are currently prescr ibed via PCP We called pharmacy in the [facility], they indicated that the patient had called [...] timestamp at 1324 pM for recommendations of trade mark attorney Records Reviewed Nursing note, medical history (Using the electronic record system of [facility]) Laboratory Evaluation Results Procedure Component Value Ref Range Date/Time D-Dimer [[id number]] (Abnormal) Collected: 07/03/19 1008 Order Status: Completed Specimen: Blood Updated: 07/03/19 1333 D-DIMER 1.39 0.19 - 0.50 mg/L FEU Urinalysis With Microscopic [[id number]] (Abnormal) Collected: 07/03/19 1313 Order Status: Completed Specimen: Urine Updated: 07/03/19 1330 Color, UA STRAW Clarity, UA CLEAR Specific [place], Urine 1.013 1.002 - 1.030 Leukocyte esterase, [...] Urine 1+ NONE Respiratory pathogen panel, NAAT [[id number]] Collected: 07/03/19 1105 Order Status: Sent Specimen: Body Fluid from Nasopharynx Updated: 07/03/19 1322 Culture, Urine [[id number]] Collected: 07/03/19 1313 Order Status: Sent Specimen: Urine, Clean Catch Updated: 07/03/19 1322 Lactic Acid [[id number]] (Abnormal) Collected: 07/03/19 1231 Order Status: Completed Specimen: Blood Updated: 07/03/19 1259 Lactate, Serum 3.1 0.4 - 2.0 mmol/L Coronavirus (COVID-19) NAAT [[id number]] Collected: 07/03/19 1105 Order Status: Completed Specimen: Tissue from Nasopharynx Updated: 07/03/19 1252 SARS-CoV-2, COREY (COVID-19) NEGATIVE NEG Procalcitonin [[id number]] Collected: 07/03/19 1008 Order Status: Completed Specimen: Blood Updated: 07/03/19 1147 PROCALCITONIN <0.05 <0.5 ng/mL Culture, Blood [[id number]] Collected: 07/03/19 1132 Order Status: Sent Specimen: Peripheral Blood Updated: 07/03/19 1146 Lactic Acid [[id number]] (Abnormal) Collected: 07/03/19 1048 Order Status: Completed Specimen: Blood Updated: 07/03/19 1133 Lactate, Serum 2.6 0.4 - 2.0 mmol/L Culture, Blood [[id number]] Collected: 07/03/19 1050 Order Status: Sent Specimen: Blood from Line Updated: 07/03/19 1129 Protime INR [[id number]] Collected: 07/03/191007 Order Status: Completed Specimen: Blood Updated: 07/03/19 1126 INR 0.9 Comprehensive Metabolic Panel [[id number]] (Abnormal) Collected: 07/03/191007 Order Status: Completed Specimen: [...] Estimated GFR >60 >60 mL/min/1.73m2 Troponin I [[id number]] Collected: 07/03/191007 Order Status: Completed Specimen: Blood Updated: 07/03/19 1041 Troponin I 0.038 0.00 - 0.04 ng/mL CBC with Differential [[id number]] (Abnormal) Collected: 07/03/191007 Order Status: Completed Specimen: [...] time 07/03/19 11:07:27 Final result by Bhavin Gr MD (07/03/19 11:07:27) Impression: No active disease. Signed by: Irina Gr, Bhavin Sign Date/Time: 07/03/2019 11:07 AM Narrative: [...] organism, unspecified whether acute organ dysfunction present ([facility]) A41.9 038.9 995.91 2. Febrile illness, acute R50.9 780.60 3. Atrial fibrillation with RVR ([facility]) I48.91 427.31 ED Disposition ED Disposition Condition Comment Admit Clinical impression: Sepsis, due to unspecified organism, unspecified whether acute organ dysfunction present ([facility]) [[id number]] Clinical impression: Febrile illness, acute [[id number]] Clinical impression: Atrial fibrillation with RVR ([facility]) [[id number]] Admitting provider: SURESH HOSPITALIST [[id number]] Expected patient class: Inpatient [101] Level of service: Medical Follow-up Information Mireya Pack NP. Specialty: Nurse Practitioner - Primary Care Contact information: [address] [id number] Discharge Medications: ED Prescriptions None Procedures Critical [...] recognition system. The possibility of "sound alike" griddle cook errors, and additions or deletions may occur. [...] 1:36 PM Marcos Nugent MD 07/03/19 1336 Jenniffer Lagos RN - 07/03/2019 10:06 AM PDTBed: ED05 [...] to today 07/03) [facility], Divya Pryor, PLANT MAINTENANCE WORKER - 07/04/2019 12:04 PM PDTCare Management Initial [...] (see comments) Community Agency Name: [facility] - Caregiving Anticipated Changes Related to [...] QUINN BOJORQUEZ 07/04/2019 12:04 PM lan of Jelena - Genna Cross RN - 07/04/2019 12:22 AM PDTPt remains [...] elevated however. Pt to receive IV abx. Swatiai elías on isolation for r/o of COVID. Problem: [...] confirmed the collection of this, passed onto night shift manager RN. Diltiazem gtt weaned down to 10. [...] | | 2019 | Visit | | COPY DIRECTOR [address] | | | | | | [address] [place], | | | | | | [place] [address] | | | | | | [phone] | | | | | | | | +--------+---------+ + + + | 09/29/ | Office | Urology | Mireya Pack, | | 2019 | Visit | | COPY DIRECTOR [address] | | | | | | [address] [place], | | | | | | [place] [address] | | | | | | [phone] | | | | | | | | | | | | [place], | | | | | | [address] | | | | | | [place] [address] | | | | | | [phone] | | | | | | | [...] | | n - | | | 05/27/ | | | 2020 | | | 10:07 | | | [...] | | | ON?05/ | | | [birth year]/202 | | | 0 | | | 10:06? | | | GR, | | | NORAH | | | | | | M?MRN: | | | | | | [id number] | | | [id number] | | | riteri | | | [...] | | [facility] | | | [place] | | | [place] | | | [...] | | | [place] | | | Director Information | | | al | | | [...] | | | MIREYA, | | | COPY DIRECTOR | | | Nurse | | | [...] Testing | 65 - 99 mg/dL | [facility] | | | POC | performed at [facility];888 | | LABORATORY | | | | [...] | + + + + + | [facility] | [address] | [place] [address] | [phone] | + + + + + POC [...] | | | POC | performed at [facility];[address] | | LABORATORY | | | | [address];[place], [place] | | | | | | [address] | | | | + + + + + + + + | Specimen | + + | | + + + + + + + | Performing | Address | City/State/Zipcode | Phone Number | | Organization | | | | + + + + + | [facility] | [address] | [place] [address] | [phone] | + + + + + POC [...] | | | POC | performed at [facility];[address] | | LABORATORY | | | [address];[place] | | | | | | [address] | | | | + + + + + + + + | Specimen | + + | | + + + + + + + | Performing | Address | City/State/Zipcode | Phone Number | | Organization | | | | + + + + + | [facility] | [address] | [place] [address] | [phone] | + + + + + Culture, [...] RESULT | Testing performed at | | [facility] | | | | [facility], [address] [facility] | | LABORATORY | | | | [facility], [place], [place] | | | | | | [id number]: Testing | | | | | | performed at [facility], [address] | | | | | | [facility], | | | | | | [place] [address] | | | | + + + + + + + + | Specimen | + + | Blood - Peripheral | | blood specimen | | (specimen) | + + + + + + + | Performing | Address | City/State/Zipcode | Phone Number | | Organization | | | | + + + + + | [facility] | [address] | [place] [address] | [phone] | + + + + + Culture, [...] RESULT | Testing performed at | | [facility] | | | | [facility], [address] | | LABORATORY | | | | [place], [place] | | | | | | [id number]: Testing | | | | | | performed at [facility], [address] | | | | | [address], | | | | | | [place] [address] | | | | + + + + + + + + | Specimen | + + | Blood - Peripheral | | blood specimen | | (specimen) | + + + + + + + | Performing | Address | City/State/Zipcode | Phone Number | | Organization | | | | + + + + + | [facility] | [address] | [place] [address] | [phone] | + + + + + Magnesium (07/05/2019 7:25 AM PDT) + + + + + + | Component | Value | Ref Range | Performed | Pathologist | | | | | At | Signature | + + + + + + | Magnesium | 1.6 (L)Comment: Testing | 1.7 - 2.4 mg/dL | [facility] | | | | performed at [facility];[address] | | LABORATORY | | | [address];[place] | | | | | | [address] | | | | + + + + + + + + | Specimen | + + | Blood | + + + + + + + | Performing | Address | City/State/Zipcode | Phone Number | | Organization | | | | + + + + + | [facility] | [address] | [place] [address] | [phone] | + + + + + CBC [...] | | | Absolute | performed at [facility], [address] | K/uL | LABORATORY | | | | Alexandrea [address], | | | | | | [place] [address] | | | | + + + + + + + + | Specimen | + + | Blood | + + + + + + + | Performing | Address | City/State/Zipcode | Phone Number | | Organization | | | | + + + + + | [facility] | [address] | [place] [address] | [phone] | + + + + + Basic [...] | >60Comment: GFR <60: | >60 | [facility] | | | GFR | [...] | | | | | | MDRD IDWV traceable | | | | | | equation.Testing | | | | | | performed at [facility], [address] | | | | | | [facility], | | | | | | [place] [address] | | | | + + + + + + + + | Specimen | + + | Blood | + + + + + + + | Performing | Address | City/State/Zipcode | Phone Number | | Organization | | | | + + + + + | [facility] | [address] | [place] [address] | [phone] | + + + + + POC Glucose (07/05/2019 7:01 AM PDT) + + + + + + | Component | Value | Ref Range | Performed | Pathologist | | | | | At | Signature | + + + + + + | Glucose, | 197 (H)Comment: Testing | 65 - 99 mg/dL | [facility] | | | POC | performed at [facility];[address] | | LABORATORY | | | | [address];[place] | | | | | | [address] | | | | + + + + + + + + | Specimen | + + | | + + + + + + + | Performing | Address | City/State/Zipcode | Phone Number | | Organization | | | | + + + + + | [facility] | [address] | [place] [address] | [phone] | + + + + + POC Glucose (07/05/2019 3:25 AM PDT) + + + + + + | Component | Value | Ref Range | Performed | Pathologist | | | | | At | Signature | + + + + + + | Glucose, | 166 (H)Comment: Testing | 65 - 99 mg/dL | [facility] | | | POC | performed at [facility];[address] | | LABORATORY | | | | [address];[place], [place] | | | | | | [address] | | | | + + + + + + + + | Specimen | + + | | + + + + + + + | Performing | Address | City/State/Zipcode | Phone Number | | Organization | | | | + + + + + | [facility] | [address] | [place] [address] | [phone] | + + + + + POC [...] | | | POC | performed at [facility];[address] | | LABORATORY | | | | [address];[place] | | | | | | [address] | | | | + + + + + + + + | Specimen | + + | | + + + + + + + | Performing | Address | City/State/Zipcode | Phone Number | | Organization | | | | + + + + + | [facility] | [address] | [place] [address] | [phone] | + + + + + POC [...] | | | POC | performed at [facility];[address] | | LABORATORY | | | | [address];[place] | | | | | | [address] | | | | + + + + + + + + | Specimen | + + | | + + + + + + + | Performing | Address | City/State/Zipcode | Phone Number | | Organization | | | | + + + + + | [facility] | [address] | [place] [address] | [phone] | + + + + + [facility] Lab Test: (07/04/2019 2:35 PM PDT) + [...] | Reference | SENT TO | | [facility] | | | | | | LABORATORY | | + + + + + + | RESULT | SEPARATE REPORT TO | | [facility] | | | | FOLLOW, SEE MEDIA | | LABORATORY | | | | TABComment: Testing | | | | | | performed at [facility];[address] | | | | | | [address];[place] | | | | | | [address] | | | | + + + + + + + + | Specimen | + + | | + + + + + + + | Performing | Address | City/State/Zipcode | Phone Number | | Organization | | | | + + + + + | [facility] | [address] | [place] [address] | [phone] | + + + + + [facility] lab fee (07/04/2019 2:35 PM PDT) + + + + + + | Component | Value | Ref Range | Performed | Pathologist | | | | | At | Signature | + + + + + + | TEST | [facility] | | [facility] | | | INFORMATION | | | LABORATORY | | + + + + + + | Reference | [facility] | | [facility] | | | | Testing performed at | | LABORATORY | | | | [facility];[address] | | | | | | [address];[place] [address] | | | | + + + + + + + + | Specimen | + + | | + + + + + + + | Performing | Address | City/State/Zipcode | Phone Number | | Organization | | | | + + + + + | [facility] | [address] | [place] [address] | [phone] | + + + + + POC [...] | | | POC | performed at [facility];[address] | | LABORATORY | | | | [address];[place] | | | | | | [address] | | | | + + + + + + + + | Specimen | + + | | + + + + + + + | Performing | Address | City/State/Zipcode | Phone Number | | Organization | | | | + + + + + | [facility] | [address] | [place] [address] | [phone] | + + + + + POC Glucose (07/04/2019 7:46 AM PDT) + + + + + + | Component | Value | Ref Range | Performed | Pathologist | | | | | At | Signature | + + + + + + | Glucose, | 248 (H)Comment: Testing | 65 - 99 mg/dL | [facility] | | | POC | performed at [facility];[address] | | LABORATORY | | | | [address];[place] | | | | | | [address] | | | | + + + + + + + + | Specimen | + + | | + + + + + + + | Performing | Address | City/State/Zipcode | Phone Number | | Organization | | | | + + + + + | [facility] | [address] | [place] [address] | [phone] | + + + + + CBC [...] | | | Absolute | performed at [facility], [address] | K/uL | LABORATORY | | | | [address], | | | | | | [place] [address] | | | | + + + + + + + + | Specimen | + + | Blood | + + + + + + + | Performing | Address | City/State/Zipcode | Phone Number | | Organization | | | | + + + + + | [facility] | [address] | [place] [address] | [phone] | + + + + + Basic [...] | >60Comment: GFR <60: | >60 | [facility] | | | GFR | [...] | | | | | performed at [facility], [address] | | | | | | [facility], | | | | | | [place] [address] | | | | + + + + + + + + | Specimen | + + | Blood | + + + + + + + | Performing | Address | City/State/Zipcode | Phone Number | | Organization | | | | + + + + + | [facility] | [address] | [place] [address] | [phone] | + + + + + CT Angiogram Pulmonary w Contrast (07/03/2019 10:44 PM PDT) + + | Specimen | + + | | + + + + + | Impressions | Performed At | + + + | No acute cardiopulmonary disease. Lungs clear. No pulmonary | [facility] | | embolism. Signed by: Irina Atkinson Zachary Sign Date/Time: | | | 07/03/2019 10:55 [...] | | | POC | performed at [facility];[address] | | LABORATORY | | | | [facility];[place], [place] | | | | | | [address] | | | | + + + + + + + + | Specimen | + + | | + + + + + + + | Performing | Address | City/State/Zipcode | Phone Number | | Organization | | | | + + + + + | [facility] | [address] | [place] [address] | [phone] | + + + + + POC [...] | | | POC | performed at [facility];[address] | | LABORATORY | | | | [address];[place], [place] | | | | | | [address] | | | | + + + + + + + + | Specimen | + + | | + + + + + + + | Performing | Address | City/State/Zipcode | Phone Number | | Organization | | | | + + + + + | [facility] | [address] | [place] [address] | [phone] | + + + + + MRSA [...] at [facility] | | | | | | [address];[place] | | | | | | [address] | | | | + + + + + + + + | Specimen | + + | Tissue - Both | | anterior nares (body | | structure) | + + + + + + + | Performing | Address | City/State/Zipcode | Phone Number | | Organization | | | | + + + + + | [facility] | [address] | [place] [address] | [phone] | + + + + + Culture, Urine (07/03/2019 1:13 PM PDT) + + + + + + | Component | Value | Ref Range | Performed | Pathologist | | | | | At | Signature | + + + + + + | RESULT | 10,000 TO 50,000 | | [facility] | | | | CFU/MLMIXED GRAM | [...] RESULT | Testing performed at | | [facility] | | | | [facility], [address] [facility] | | LABORATORY | | | | [place], [place] | | | | | | [id number]: Testing | | | | | | performed at [facility], [address] | | [address] | [address] [facility], | | | | | | [place] [address] | | | | + + + [...] + | [facility] | [address] | [place] [address] | [phone] | + + + + + Urinalysis With Microscopic (07/03/2019 1:13 PM PDT) + + + + + + | Component | Value | Ref Range | Performed | Pathologist | | | | | At | Signature | + + + + + + | Color, UA | STRAW | | [facility] | | | | | | LABORATORY | | + + + + + + | Clarity, | CLEAR | | [facility] | | | Urine | | | LABORATORY | | + + + + + + | Specific | 1.013 | 1.002 - 1.030 | [facility] | | | [place], | | | LABORATORY | | | [...] | 1+ (A)Comment: Testing | NONE | [facility] | | | Urine | performed at [facility];[address] | | LABORATORY | | | | [address];[place] | | | | | | [address] | | | | + + + + + + + + | Specimen | + + | Urine | + + + + + + + | Performing | Address | City/State/Zipcode | Phone Number | | Organization | | | | + + + + + | [facility] | [address] | [place] [address] | [phone] | + + + + + Lactic Acid (07/03/2019 12:31 PM PDT) + + + + + + | Component | Value | Ref Range | Performed | Pathologist | | | | | At | Signature | + + + + + + | Lactate, | 3.1 (H)Comment: RESULT | 0.4 - 2.0 | [facility] | | | Serum | READ BACK BY: ZAYNAB | mmol/L | LABORATORY | | | | SEPSIS RN @1258 BY | | | | | | BHREAD BACK RESULTS | | | | | | VERIFIEDTesting | | | | | | performed at [facility] | | | | | | [address];[place], [place] | | | | | | [address] | | | | + + + + + + + + | Specimen | + + | Blood | + + + + + + + | Performing | Address | City/State/Zipcode | Phone Number | | Organization | | | | + + + + + | [facility] | [address] | [place] [address] | [phone] | + + + + + Culture, [...] Special | Testing performed at | | [facility] | | | Requests | [facility];[address] | | LABORATORY | | | | [address];[place] [address] | | | | + + + + + + | RESULT | NO GROWTH 6 DAYS | | [facility] | | | | | | LABORATORY | | + + + + + + | RESULT | Testing performed at | | [facility] | | | | TCL, [address] [facility] | | LABORATORY | | | | [place] | | | | | | [id number]: Testing | | | | | | performed at [facility], [address] | | | | | | [address] [place] | | | | | | [address] | | | | + + + + + + + + | Specimen | + + | Blood - Peripheral | | blood specimen | | (specimen) | + + + + + + + | Performing | Address | City/State/Zipcode | Phone Number | | Organization | | | | + + + + + | [facility] | [address] | [place] [address] | [phone] | + + + + + Respiratory [...] | | | | | performed at [facility], [address] | | | | | | [address], | | | | | | [place] [address] | | | | + + + + + + + + | Specimen | + + | Body Fluid - Entire | | nasopharynx (body | | structure) | + + + + + + + | Performing | Address | City/State/Zipcode | Phone Number | | Organization | | | | + + + + + | [facility] | [address] | [place] [address] | [phone] | + + + + + Coronavirus (COVID-19) NAAT (07/03/2019 11:05 AM PDT) + + + + + + | Component | Value | Ref Range | Performed | Pathologist | | | | | At | Signature | + + + + + + | SARS-CoV-2, | NEGATIVEComment: Testing | NEG | [facility] | | | NAAT | performed at [facility];[address] | | LABORATORY | | | (COVID-19) | [address];[place] | | | | | | [address] | | | | + + + + + + + + | Specimen | + + | Tissue - Entire | | nasopharynx (body | | structure) | + + + + + + + | Performing | Address | City/State/Zipcode | Phone Number | | Organization | | | | + + + + + | [facility] | [address] | [place] [address] | [phone] | + + + + + Culture, [...] | [facility] | | | Requests | [facility];[address] | | LABORATORY | | | | [address];[place] [address] | | | | + + + [...] | LABORATORY | | | | AT [facility] 9RP BY AA AT 0605 | | | | | [...] GROWTH IN TWO OF TWO | | [facility] | | | | BOTTLES (A) | | LABORATORY | | + + + + + + | RESULT | TIME TO DETECTION: | | [facility] | | | | 0.63 DAYS | | LABORATORY | | | | | | | | + + + + + + | RESULT | POSSIBLE CONTAMINANT, | | [facility] | | | | CLINICAL CORRELATION | | LABORATORY | | | | REQUIRED. | | | | + + + + + + | RESULT | Testing performed at | | [facility] | | | | [facility], [address] | | LABORATORY | | | | [place] | | | | | | [id number]: Testing | | | | | | performed at [facility], [address] | | | | | | [address] [place], [place] | | | | | | [address] | | | | + + + + + + + + | Specimen | + + | Blood - Swab of line | | insertion site | | (specimen) | + + + + + + + | Performing | Address | City/State/Zipcode | Phone Number | | Organization | | | | + + + + + | [facility] | [address] | [place] [address] | [phone] | + + + + + Lactic Acid (07/03/2019 10:48 AM PDT) + + + + + + | Component | Value | Ref Range | Performed | Pathologist | | | | | At | Signature | + + + + + + | Lactate, | 2.6 (H)Comment: CALLED | 0.4 - 2.0 | [facility] | | | Serum | RESULTSSEPSIS RN/DANA | mmol/L | LABORATORY | | | | M AT 1132 BY SALTesting | | | | | | performed at [facility];[address] | | | | [address];[place] | | | | | | [address] | | | | + + + + + + + + | Specimen | + + | Blood | + + + + + + + | Performing | Address | City/State/Zipcode | Phone Number | | Organization | | | | + + + + + | [facility] | [address] | [place] [address] | [phone] | + + + + + XR [...] | | | | Signed by: Irina Gr, Bhavin | | Sign Date/Time: 07/03/2019 11:07 AM [...] | | | | | ONLY, -COMPUTER ([id number]), | | | | | | news editor Mel Bruno | | | | | | ([id number]) on 07/04/2019 | | | | | [...] D Dimer | 0.19 - 0.50 | [facility] | | | | results [...] at [facility] | | | | | | [address];[place] | | | | | | [address] | | | | + + + + + + + + | Specimen | + + | Blood | + + + + + + + | Performing | Address | City/State/Zipcode | Phone Number | | Organization | | | | + + + + + | [facility] | [address] | [place] [address] | [phone] | + + + + + Magnesium (07/03/2019 10:08 AM PDT) + + + + + + | Component | Value | Ref Range | Performed | Pathologist | | | | | At | Signature | + + + + + + | Magnesium | 1.7Comment: Testing | 1.7 - 2.4 mg/dL | [facility] | | | | performed at [facility];[address] | | LABORATORY | | | | [address];[place], [place] | | | | | | [address] | | | | + + + + + + + + | Specimen | + + | Blood | + + + + + + + | Performing | Address | City/State/Zipcode | Phone Number | | Organization | | | | + + + + + | [facility] | [address] | [place] [address] | [phone] | + + + + + Procalcitonin [...] | | | | | | at [facility];[address] [place] [address] | | | | | | [place] [address] | | | | + + + + + + + + | Specimen | + + | Blood | + + + + + + + | Performing | Address | City/State/Zipcode | Phone Number | | Organization | | | | + + + + + | [facility] | [address] | [place] [address] | [phone] | + + + + + B Type Natriuretic Peptide (07/03/2019 10:08 AM PDT) + + + + + + | Component | Value | Ref Range | Performed | Pathologist | | | | | At | Signature | + + + + + + | BNP | 104.37 (H)Comment: | 0 - 100 pg/mL | [facility] | | | | Testing performed at | | LABORATORY | | | | [facility];[address];[place] [address] | | | | + + + + + + + + | Specimen | + + | Blood | + + + + + + + | Performing | Address | City/State/Zipcode | Phone Number | | Organization | | | | + + + + + | [facility] | [address] | [place] [address] | [phone] | + + + + + Procalcitonin [...] | | | | | | at [facility];[address] | | | | | | [address];[place] [address] | | | | + + + + + + + + | Specimen | + + | Blood | + + + + + + + | Performing | Address | City/State/Zipcode | Phone Number | | Organization | | | | + + + + + | [facility] | [address] | [place] [address] | [phone] | + + + + + Protime [...] at [facility] | | | | | | [address];[place], [place] | | | | | | [address] | | | | + + + + + + + + | Specimen | + + | Blood | + + + + + + + | Performing | Address | City/State/Zipcode | Phone Number | | Organization | | | | + + + + + | [facility] | [address] | [place] [address] | [phone] | + + + + + Troponin I (07/03/2019 10:08 AM PDT) + + + + + + | Component | Value | Ref Range | Performed | Pathologist | | | | | At | Signature | + + + + + + | Troponin I | 0.038Comment: 0.04 | 0.00 - 0.04 | [facility] | | | | ng/mL [...] at | | | | | | [facility];[address] [facility] | | | | | | [address];[place] [address] | | | | + + + + + + + + | Specimen | + + | Blood | + + + + + + + | Performing | Address | City/State/Zipcode | Phone Number | | Organization | | | | + + + + + | [facility] | [address] | [place] [address] | [phone] | + + + + + Comprehensive [...] [place];[address] | | | | | | [address];[place] | | | | | | [address] | | | | + + + + + + + + | Specimen | + + | Blood | + + + + + + + | Performing | Address | City/State/Zipcode | Phone Number | | Organization | | | | + + + + + | [facility] | [address] | [place] [address] | [phone] | + + + + + CBC with Differential (07/03/2019 10:08 AM PDT) + + + + + + | Component | Value | Ref Range | Performed | Pathologist | | | | | At | Signature | + + + + + + | WBC | 11.16 (H) | 3.80 - 11.00 | [facility] [...] | | | Absolute | performed at [facility];[address] | [address] | LABORATORY | | | | [address];[place], [place] | | | | | | [address] | | | | + + + + + + + + | Specimen | + + | Blood | + + + + + + + | Performing | Address | City/State/Zipcode | Phone Number | | Organization | | | | + + + + + | [facility] | [address] | [place] [address] | [phone] | + + + + + documented [...] with hyperglycemia, unspecified whether long term care social worker insulin use | | (HCC) | + [...] PDT | | | | | on 07/03/19 at 2030 | | | | | [...] | | | | | dose on 07/03/19 at 1830 | | AM PDT | [...] | | | | | reorder) on [facility] 07/04/19 at 1230, | | | | [...] 8:07 | | | | | on 07/03/19 at 1830, | | AM PDT | [...] | | | | | | | [id number] Use NIGHT DOSE for | | | | | | | doses scheduled: HS, | | | | | | | Nighttime [id number] If the BG is | | | [...] PDT | | | | | Starting 07/03/19 at 2240, For | | | | [...] | | | | | Mon07/03/19 at 1830, Indication: | | | | [...] | mL/hr | | | 75.3 kg Metaline weight), | | AM PDT | | | | | Intravenous, Administer over 2 | | | | | | | Hours, ONCE, Mon07/03/19 at 1050, | | | | | [...] | | | | | Minutes, ONCE, [facility] 07/04/19 at | | | | | | | 1200, For 1 dose, Keep in | | | | | | | refrigerator., Indications: | | | | | | | Bacteremia | | | | | | + +---------+ + +-------+---+ +---+---+ | | | +---+---+ + +---------+ + +--------+---+ | vancomycin in NS (VANCOCIN) | Bag | 07/05/19 | 1,250 mg | [...] | | | | First dose on [facility] 07/04/19 at | | | | | [...] (after last reorder) | | | on 07/05/19 at 2300, | | | Vancomycin trough [...] pharmacy | | | PHARMACY CONSULT, Starting Fri | | | 07/05/19 at 1251, Indications: [...]
--- OUTSIDE RECORDS SUMMARY | ~2019-09-09 | XMS | Encounter Summary ---
Demographics + + + | Address | [address] [facility] [address] | | | [place] [address] | + + + | Home Phone [...] + | Sammi Kohler | ECON | [place] [address] | | + + + + + Care Team Providers + +------+ + | Care Transportation Engineer Name | Role | Phone | + +------+ + PCP | Unavailable | + +------+ + Encounter Details +--------+ + + + + | Date | Type | Department | Care Team | Description | +--------+ + + + + | 01/25/ | Emergency | [facility] | Irvin Little | Hyperglycemia; | | 2014 | | [facility] | [place], DO [address] | Dizziness | | | | EMERG[facility]ENTER | [address] | | | | | [address] | [place], [place] | | | | | [place], [place] | [address] | | | | | [address] | [phone] | | | | | [phone] | | | +--------+ + + + [...] 01/25/151710 Date of Service: 01/25/151710 Status: Signed Steep Tender: Carlos Morfin RN (Registered Nurse) 2 patient identifiers checked, patient gowned, side rails up x1 . ID band placed on patien t, call light instructed on and given to patient. Carlos Morfin RN 01/25/151710 onver ivana Transaction, Provider Unknown - 01/25/2015 5:08 PM PST ED Notes by Carlos Morfin RN at 01/25/151707 Author: Carlos Morfin RN Service: (none) Author Type: Registered Nurse Filed: 01/25/151709 Date of Service: 01/25/151707 Status: Signed Steep Tender: Carlos Morfin RN (Registered Nurse) Pt complains [...] Service: Emergency Department Author Type: Physician Filed: 01/25/15 184 Date of Service: 01/25/151658 Status: Signed Steep Tender: Irvin Little DO (Physician) Procedures Additional Documentation Procedures [facility] Department of Emergency Medicine 6:39 PM History of Present Illness Patient Identification Kevyn Guzman is a 59 y.o. male. Patient information was obtained from patient. History/Exam limitations: none. 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; Service: General; Laterality: N/A; Abdominal surgery Cholecystectomy Skin cancer excision 10/10/2012 Procedure: EXCISION - SKIN CANCER; Surgeon: Sy Fierro MD; Location: [facility] ; Service: Plastics; Laterality: Left; upper arm and upper back w/frozen section Esophagogastroduodenoscopy 03/03/2013 Procedure: ESOPHAGOGASTRODUODENOSCOPY; Surgeon: Howie Gibson MD; Location: [facility]; S ervice: Gastroenterology; Laterality: N/A; Colonoscopy 03/04/2013 Procedure: COLONOSCOPY; Surgeon: Howie Gibson MD; Location: [facility]; Service: Gastroe nterology; Laterality: N/A; Upper gastrointestinal endoscopy Skin biopsy Hernia repair 07/03/2013 Procedure: LAPAROSCOPIC - HERNIA - INCISIONAL; Surgeon: Jevon Vargas DO; Location: [facility]; Service: General; Laterality: N/A; Skin lesion excision Left 05/05/2014 Procedure: EXCISION - LESION - FROZEN SECTION; Surgeon: Sy Fierro MD; Location: [facility]; Service: Plastics; Laterality: Left; forearm Prior to Admission medications Medication Sig Start Date End Date Taking? Authorizing Provider Albuterol Sulfate (VENTOLIN HFA IN) Inhale 2 puffs into the lungs as needed. 108 mcg/act Historical Provider Ewztj-Y-Ftrayvdzlvoga (BEANO) TABS Take 150 Units by mouth [...] 100 mg by mouth nightly. Historical Provider nfenosvpa-kgzlgwiz-vkkhnvuva hydroxide-simethicone Take 40 mLs by mouth daily [...] of Children: 1 Years of Education: s. [employer] Occupational History disabled Social History Main Topics Smoking status: Never Smoker Smokeless tobacco: Never Used Alcohol Use: 0.0 oz/week 1-2 Cans of beer per week Comment: once week, occasionally Drug Use: No Sexual Activity: Not Currently Other Topics Concern Not on file Social History Narrative Lives alone x 1 wk, [facility], , 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 2 [...] Value Ref Range Date/Time Comprehensive metabolic panel [[id number]] (Abnormal) Collected: 01/25/15 1730 Order Status: Completed [...] 65 U/L EGFR >60 >60 mL/min/1.73m2 Magnesium [[id number]] Collected: 01/25/151729 Order Status: Completed Specimen Information: Blood Updated: 01/25/15 1814 MAGNESIUM 1.9 1.7 - 2.4 mg/dL CBC with differential [[id number]] (Abnormal) Collected: 01/25/151729 Order Status: Completed Specimen [...] 0.00 - 0.10 K/uL MORPHOLOGY 1+ aPTT [[id number]] Collected: 01/25/151729 Order Status: Completed Specimen Information: Blood Updated: 01/25/15 1801 APTT 27 23 - 32 seconds Protime [[id number]] Collected: 01/25/151729 Order Status: Completed Specimen Information: Blood Updated: 01/25/15 1800 INR 1.2 Ketones, Serum [[id number]] Collected: 01/25/151729 Order Status: Completed Specimen Information: Blood Updated: 01/25/15 1755 KETONES,SERUM NEGATIVE NEGATIVE POC venous blood gas [[id number]] (Abnormal) Collected: 01/25/151737 Order Status: Completed Updated: [...] week [address] [place] [id number] Discharge Medications: New Prescriptions No new medications Dr. Irvin Little, D.O. Dictation software, [employer], used which may contain error for similar sounding words even af ter review. Personal communication requested for any clarification. Irvin Little DO 01/25/15 1670 docuchaz lgiht in this encounter Plan of Treatment +--------+---------+ + + + | Date | Type | Specialty | Care Team | Description | +--------+---------+ + + + | 09/10/ | Office | Geriatric Medicine | Mireya Pack, | | | 2019 | Visit | | [facility] [address] | | | | | | [address] [place], | | | | | | [place] [address] | | | | | | [phone] | | | | | | | | +--------+---------+ + + + | 09/29/ | Office | Urology | Mireya Pack, | | | 2019 | Visit | | [facility] [address] | | | | | | [address] [facility], | | | | | | [place] [address] | | | | | | [phone] | | | | | | | | | | | | [place], | | | | | | [address] | | | | | | [place] [address] | | | | | | [phone] | | | | | | | [...] | | | Blood | performed at [facility];[address] | | LAB | | | | [address];[place] | | | | | | [address] | | | | + + + [...] [place] | | | | | | [address] | | | | + + + [...] | performed at [facility] | | | | | | [employer];[place], [place] | | | | | | [address] | | | | + + + [...] | | [facility];[address] [facility] | | | | | | Blvd;[place] [address] | | | | + + + + + + | Non- | 5.79 (H)Comment: Testing | 4.20 - 5.70 | EXTERNAL | | | Red Blood | performed at [facility];[address] | M/uL | LAB | | | Cells | [address];[place] | | | | | Counted | [address] | | | | + + + + + + | Hemoglobin | 13.5Comment: Testing | 13.2 - 17.0 | EXTERNAL | | | | performed at [facility];[address] | g/dL | LAB | | | | [address];[place] | | | | | | [address] | | | | + + + + + + | Hematocrit, | 42.8Comment: Testing | 39.0 - 50.0 % | EXTERNAL | | | POC | performed at [facility];[address] | | LAB | | | | [address];[place] | | | | | | [address] | | | | + + + + + + | MCV | 73.9 (L)Comment: Testing | 80.0 - 100.0 fl | EXTERNAL | | | | performed at [facility];[address] | | LAB | | | | [address];[place] | | | | | | [address] | | | | + + + + + + | MCH | 23.3 (L)Comment: Testing | 27.0 - 34.0 pg | EXTERNAL | | | | performed at [facility];[address] | | LAB | | | | [address];[place] | | | | | | [address] | | | | + + + + + + | MCHC | 31.6 (L)Comment: Testing | 32.0 - 35.5 | EXTERNAL | | | | performed at [facility];[address] | g/dL | LAB | | | | [address];[place] | | | | | | [address] | | | | + + + + + + | RDW-CV | 42.4Comment: Testing | 37 - 53 fl | EXTERNAL | | | | performed at [facility];[address] | | LAB | | | | [address];[place] | | | | | | [address] | | | | + + + + + + | Platelet | 329Comment: Testing | 150 - 400 K/uL | EXTERNAL | | | Count | performed at [facility];[address] | | LAB | | | Plasma | [address];[place] | | | | | | [address] | | | | + + + + + + | MPV | 7.6Comment: Testing | fl | EXTERNAL | | | | performed at [facility];[address] | | LAB | | | | [address];[place] | | | | | | [address] | | | | + + + + + + | Differentia | AUTOMATEDComment: | | EXTERNAL | | | l Type | Testing performed at | | LAB | | | | [facility];[address];[place] [address] | | | | + + + + + + | % Segmented | 75.37Comment: Testing | % | EXTERNAL | | | | performed at [facility];[address] | | LAB | | | Neutrophils | [address];[place] | | | | | | [address] | | | | + + + + + + | % | 16.49Comment: Testing | % | EXTERNAL | | | Lymphocytes | performed at [facility];[address] | | LAB | | | | [address];[place] | | | | | | [address] | | | | + + + + + + | % Monocytes | 6.71Comment: Testing | % | EXTERNAL | | | | performed at [facility];[address] | | LAB | | | | [address];[place] | | | | | | [address] | | | | + + + + + + | % | 0.67Comment: Testing | % | EXTERNAL | | | Eosinophils | performed at [facility];[address] | | LAB | | | | [address];[place] | | | | | | [address] | | | | + + + + + + | % Basophils | 0.76Comment: Testing | % | EXTERNAL | | | | performed at [facility];[address] | | LAB | | | | [address];[place] | | | | | | [address] | | | | + + + + + + | Absolute | 8.56 (H)Comment: Testing | 1.90 - 7.40 | EXTERNAL | | | Segmented | performed at [facility];[address] | K/uL | LAB | | | Neutrophils | [address];[place] | | | | | | [address] | | | | + + + + + + | Absolute | 1.87Comment: Testing | 1.00 - 3.90 | EXTERNAL | | | Lymphocytes | performed at [facility];[address] | K/uL | LAB | | | | [address];[place] | | | | | | [address] | | | | + + + + + + | Absolute | 0.76Comment: Testing | 0.00 - 0.80 | EXTERNAL | | | Monocytes | performed at [facility];[address] | K/uL | LAB | | | | [address];[place] | | | | | | [address] | | | | + + + + + + | Absolute | 0.08Comment: Testing | 0.00 - 0.50 | EXTERNAL | | | Eosinophils | performed at [facility];[address] | K/uL | LAB | | | | [address];[place] | | | | | | [address] | | | | + + + + + + | Absolute | 0.09Comment: Testing | 0.00 - 0.10 | EXTERNAL | | | Basophils | performed at [facility];[address] | K/uL | LAB | | | | [address];[place] | | | | | | [address] | | | | + + + + + + | RBC | 1+Comment: | | EXTERNAL | | | Morphology | ANISO1+HYPO2+MICRONORMAL | | LAB | | | | PLT MORPHTesting | | | | | | performed at [facility];[address] | | | | | | [employer];[place], [place] | | | | | | [address] | | | | | |MICRO | | | | | |NORMAL PLT MORPH | | | | | |Testing performed at [facility];[address] [facility] [address] | | | | | | | [...] | performed at [facility] | | LAB | | | | [address];[place] | | | | | | [address] | | | | + + + [...] [place] | | | | | | [address] | | | | + + + + + + | K | 3.8Comment: Testing | 3.5 - 4.9 | EXTERNAL | | | | performed at [facility];[address] | mmol/L | LAB | | | | [address];[place] | | | | | | [address] | | | | + + + + + + | Cl | 101Comment: Testing | 99 - 109 mmol/L | EXTERNAL | | | | performed at [facility];[address] | | LAB | | | | [address];[place] | | | | | | [address] | | | | + + + + + + | CO2 | 26Comment: Testing | 23 - 32 mmol/L | EXTERNAL | | | | performed at [facility];[address] | | LAB | | | | [address];[place] | | | | | | [address] | | | | + + + + + + | Anion Gap | 13Comment: Testing | 5 - 20 mmol/L | EXTERNAL | | | | performed at [facility];[address] | | LAB | | | | [address];[place] | | | | | | [address] | | | | + + + + + + | Glucose, | 262 (H)Comment: Testing | 65 - 99 mg/dL | EXTERNAL | | | Fasting | performed at [facility];[address] | | LAB | | | | [address];[place] | | | | | | [address] | | | | + + + + + + | BUN | 24Comment: Testing | 8 - 25 mg/dL | EXTERNAL | | | | performed at [facility];[address] | | LAB | | | | [address];[place] | | | | | | [address] | | | | + + + + + + | Creatinine | 1.2Comment: Testing | 0.70 - 1.30 | EXTERNAL | | | | performed at [facility];[address] | mg/dL | LAB | | | | [address];[place] | | | | | | [address] | | | | + + + + + + | BUN/Creatin | 20Comment: Testing | | EXTERNAL | | | ine Ratio | performed at [facility];[address] | | LAB | | | | [address];[place] | | | | | | [address] | | | | + + + + + + | Calcium | 8.6Comment: Testing | 8.5 - 10.5 | EXTERNAL | | | | performed at [facility];[address] | mg/dL | LAB | | | | [address];[place] | | | | | | [address] | | | | + + + + + + | Protein, | 7.7Comment: Testing | 6.3 - 8.2 g/dL | EXTERNAL | | | Total | performed at [facility];[address] | | LAB | | | | [address];[place] | | | | | | [address] | | | | + + + + + + | Albumin | 3.2 (L)Comment: Testing | 3.3 - 4.8 g/dL | EXTERNAL | | | | performed at [facility];[address] | | LAB | | | | [address];[place] | | | | | | [address] | | | | + + + + + + | Globulin | 4.4Comment: Testing | 1.3 - 4.9 g/dL | EXTERNAL | | | | performed at [facility];[address] | | LAB | | | | [address];[place] | | | | | | [address] | | | | + + + + + + | A/G Ratio | 0.7 (L)Comment: Testing | 1.0 - 2.4 | EXTERNAL | | | | performed at [facility];[address] | | LAB | | | | [address];[place] | | | | | | [address] | | | | + + + + + + | Bilirubin | 0.4Comment: Testing | 0.1 - 1.5 mg/dL | EXTERNAL | | | Total | performed at [facility];[address] | | LAB | | | | [address];[place] | | | | | | [address] | | | | + + + + + + | ALP, | 163 (H)Comment: Testing | 35 - 115 U/L | EXTERNAL | | | External | performed at [facility];[address] | | LAB | | | | [address];[place] | | | | | | [address] | | | | + + + + + + | AST | 16Comment: Testing | 10 - 45 U/L | EXTERNAL | | | | performed at [facility];[address] | | LAB | | | | [address];[place] | | | | | | [address] | | | | + + + + + + | ALT | 23Comment: Testing | 10 - 65 U/L | EXTERNAL | | | | performed at [facility];[address] | | LAB | | | | [facility];[place], [place] | | | | | | [address] | | | | + + + [...] | at [facility];[address] [facility] | | | | | | Blvd;[place] [address] | | | | + + + [...] | | | Fingerstick | performed at [facility];[address] | | LAB | | | | [address];[place] | | | | | | [address] | | | | + + + [...]
--- OUTSIDE RECORDS SUMMARY | ~2019-09-09 | XMS | Encounter Summary ---
Demographics + + + | Address | [address] | | | [place] [address] | + + + | Home Phone [...] + | Sammi Kohler | ECON | [place] [address] | | + + + + + Care Team Providers + +------+ + | Care Pipe Organ Mechanic Apprentice Name | Role | Phone | + +------+ + PCP | Unavailable | + +------+ + Encounter Details +--------+ + + + + | Date | Type | Department | Care Team | Description | +--------+ + + + + | 01/09/ | Emergency | [facility] | Bimal Ramirez, | Abdominal pain; | | 2013 | | [facility]ENTER | MD [facility] | Constipation | | | | EMERGENCY CENTER | [place], [place] | | | | | [address] | [address] | | | | | [place], [place] | | | | | | [address] | | | | | | [phone] | | | +--------+ + + + [...] documented as of this encounter ED Notes Dylan Almeida PA-C - 01/09/2014 9:43 PM PSTFormatting of this note might be diffe rent from the original. ED Provider Notes by Dylan Almeida PA-C at 01/09/142142 Author: Dylan Almeida PA-C Service: (none) Author Type: Physician Assembled Wood Products Repairer - Certifie d Filed: 01/10/142107 Date of Service: 01/09/142142 Status: Attested Cattle Knocker: Dylan Almeida PA-C (Physician Assembled Wood Products Repairer - Certified) Cosigner: Bimal blanchard DO at 01/14/14 155 Procedure Orders: 1. POCT occult blood stool [[id number]] ordered by Dylan Almeida PA-C at 01/09/142148 Attestation signed by Bimal Ramirez DO at 01/14/142 I have discussed the treatment and care plan with the midlevel and I agree with the treatme nt and patient management plan as discussed. Guaiac negative stool. Performed by ED provider. Hemoccult manufacturing quality manager Passed. [facility] Department of Emergency Medicine HPI History of Present Illness Patient Identification Norah Gr is a 58 y.o. male. Patient information was obtained from patient. History/Exam limitations: none. Patient presented to the Emergency Department by: [facility] 1721 Chief Complaint Chief Complaint Patient presents with Abdominal Pain RLQ The patient complains of abdominal pain. Onset of symptoms was this morning, with a worseni ng course since that time. The symptoms are described to be of moderate severity. The patie nt also complains of decreased appetite. The patient describes the quality and location of the symptoms as the following: Sharp right lower and upper quadrant pain that is worse with sitting and walking. Care prior to arrival consisted of Tums, with no relief. States he kelley s been urinating regularly, but has irregular bowel movements. Past Medical History Diagnosis Date Diabetes mellitus [...] into the lungs as needed. Historical Provider Ubtij-Y-Ethzodnwfktwv (BEANO) TABS Take 150 Units by mouth [...] 100 mg by mouth nightly. Historical Provider qeetftgrz-cmlhoeap-oneifdfuv hydroxide-simethicone Take 40 mLs by mouth daily [...] shortness of breath, cough Gastrointestinal: Negative for: vomiting, diarrhea, black or bloody stools. Positive for : Abdominal pain Genitourinary: Negative for: dysuria, hematuria, urinary problems Musculoskeletal: Negative for: myalgias and arthralgias Skin: Negative for: laceration or lesion Neuro and psych: Negative for: fainting, head injury, seizure, trouble walking Endocrine/Heme/Lymph: Negative for: swollen lymph nodes, easy bruising Physical Exam Physical Exam BP 112/59 | Pulse 84 | Temp(Src) 98.2 F (36.8 C) (Oral) | Resp 16 | SpO2 94% Pulse Oximetry interpretation: Normal General: Alert, in no apparent distress Eyes: Normal inspection, pupils equal and round, non-icteric ENT: Ears:Copious cerumen in ear canals, visualize TMs are clear. Nose normal Pharynx normal Neck: Normal inspection Supple No lymphadenopathy No meningismus Cardiovascular: Rate and rhythm normal No murmurs Respiratory: Breath sounds normal bilaterally Abdomen: Large, round. Small injection showed bruise on right middle abdomen. Large ventra l hernia with flexion is unchanged per the patient. States pain to palpation of the right u pper and right lower quadrants. Abdomen is soft to palpation without guarding or rebound. Heel tap, obturator, psoas signs all negative. No guarding or rebound Genitourinary: No hernias noted. Nontender to palpation. No rashes or lesions seen. Rectal exam: Guaiac negative. QC ok Back: Normal inspection Skin: Color normal Warm and dry No rash Neuro: No motor deficit No sensory deficit Normal gait ED Course Medical Decision Making and Emergency Department Course ED Department Course After introducing myself to the patient, I performed a careful history and physical examina tion. I formulated my differential diagnosis of potential medical problems that I felt neede d to be addressed during this Emergency Room visit, briefly discussed this differential with him, and then discussed the plan of care. I also carefully discussed the risks and benefits of all diagnostic and treatment modalities planned for this ED visit. Patient has numerous prior visits to the ER for workups including abdominal pain and chest pain. Differentials at this time include but are not limited to: cholelithiasis, cholecystitis, h epatitis, pancreatitis, nephrolithiasis, urine infection, anemia, dehydration, acute renal f ailure, acute appendicitis, electrolyte changes, gastritis, gastroenteritis and also ileus. 2144 He is currently afebrile and appears in no acute distress. The abdomen is not rigid a nd has no signs of peritoneal irritation. Plan to order CBC, CMP, lipase, abdominal x-rays, urine. 2244 The labs and abdominal x-rays were reviewed with Dr. Ramirez. X-rays show large loops of bowel with air and copious amounts of stool. No air-fluid level seen. These findings w ere discussed by Dr. Ramirez with the radiologist. Creatinine elevated at 1.62 and estimate d GFR is 47. Elevated blood sugars 200. CBC shows elevated white count at 14.1 , and eleva tion of absolute neutrophils of 11.0. Previous laboratory results show elevated creatinine and decreased GFR. 2310 Lactulose and Maalox were ordered for the constipation. At this time, the patient is resting comfortably and does not appear to be in any distress. The abdomen remains soft wit h no guarding or peritoneal signs and the patient states reduced pain. The abdomen does not appear to be an acute surgical abdomen, requiring immediate intervention. With this in min d, the patient does need to have continued close following and needs to return to the ER wit hin 12-24 hours for reevaluation. This was discussed with the patient who states that he wi ll return to the ER tomorrow for recheck. He was advised to immediately return if any fever , new or worsening abdominal pain, nausea, vomiting, weakness, or any other complaints or co ncerns. He was also encouraged to continue to drink plenty of fluids and stay hydrated. Records Reviewed Old medical records. Nursing notes. Labs & Radiology Results Laboratory Evaluation Results Procedure Component Value Ref Range Date/Time Lipase [[id number]] Collected: 01/09/142199 Order Status: Completed Updated: 01/09/142232 Specimen Information: Blood LIPASE 82 73 - 393 U/L Comprehensive metabolic panel [[id number]] (Abnormal) Collected: 01/09/142199 Order Status: Completed Updated: 01/09/142232 Specimen Information: Blood SODIUM 138 135 - 143 mmol/L POTASSIUM 4.2 3.5 - 4.9 mmol/L CHLORIDE 102 99 - 109 mmol/L CO2 29 23 - 32 mmol/L ANION GAP AGAP 11 5 - 20 mmol/L GLUCOSE 200 (H) 65 - 99 mg/dL BUN 25 8 - 25 mg/dL CREATININE 1.62 (H) 0.70 - 1.30 mg/dL BUN/CREAT 16 CALCIUM 8.9 8.5 - 10.2 mg/dL TOTAL PROTEIN 7.2 6.3 - 8.2 g/dL Albumin 3.4 (L) 3.6 - 5.0 g/dL GLOBULIN 3.7 1.3 - 4.9 g/dL A/G 0.9 (L) 1.0 - 2.4 TBIL 0.3 0.1 - 1.5 mg/dL ALK PHOS 87 35 - 115 U/L AST 16 10 - 45 U/L ALT 25 10 - 65 U/L EGFR 47 (L) >60 mL/min/1.73m2 CBC with differential [[id number]] (Abnormal) Collected: 01/09/142199 Order Status: Completed Updated: 01/09/142217 Specimen Information: Blood WBC 14.1 (H) 3.8 - 11.0 K/uL RBC 4.77 4.20 - 5.70 M/uL HGB 12.3 (L) 13.2 - 17.0 g/dL HCT 38.1 (L) 39.0 - 50.0 % MCV 79.8 (L) 80.0 - 100.0 fl MCH 25.9 (L) 27.0 - 34.0 pg MCHC 32.4 32.0 - 35.5 g/dL RDW SD 41.1 37 - 53 fl PLT 284 150 - 400 K/uL MPV 8.0 fl DIFF TYPE AUTOMATED NEUTROPHILS 78.0 % LYMPHOCYTES 14.1 % MONOCYTES 6.5 % EOSINOPHILS 0.3 % BASOPHILS 1.1 % NEUTROPHILS ABS 11.0 (H) 1.9 - 7.4 K/uL LYMPHOCYTES ABS 2.0 1.0 - 3.9 K/uL MONOCYTES ABS 0.9 (H) 0 - 0.8 K/uL EOSINOPHILS ABS 0.0 0 - 0.5 K/uL BASOPHILS ABS 0.2 (H) 0 - 0.1 K/uL Radiology and EKG Evaluation Imaging Results Acute Abdominal Series (In process) Diagnosis & Disposition ED Diagnoses Final diagnoses Abdominal pain Constipation Disposition: ED Disposition Discharge Condition at discharge: Stable Follow-up Information Follow up With Details Comments Contact Info Jerrell Diego DO Call Schedule follow-up for recheck [address] [facility] [id number] [facility] Emergency Department Go to Return to the ED in 12-24 hours for recheck. [facility] [address] Dis[facility] Medications: New Prescriptions No new medications Dylan Almeida PA-C 01/10/142107 Bimal Ramirez DO 01/14/14 1552 onversion Yulisa mata, Provider Unknown - 01/09/2014 9:33 PM PSTFormatting of this note might be diffe rent from the original. ED Notes by Carlos Morfin RN at 01/09/142132 Author: Carlos Morfin RN Service: (none) Author Type: Registered Nurse Filed: 01/09/142132 Date of Service: 01/09/142132 Status: Signed Cattle Knocker: Carlos Morfin RN (Registered Nurse) 2 patient identifiers checked, patient gowned, side rails up x1. ID band placed on patient , call light instructed on and given to patient. Carlos Morfin RN 01/09/142132 docume nted in this encounter Plan of Treatment +--------+---------+ + + + | Date | Type | Specialty | Care Team | Description | +--------+---------+ + + + | 09/10/ | Office | Geriatric Medicine | Mireya Pack, | | | 2019 | Visit | | INVESTMENT SPECIALIST [address] | | | | | | [address] [place] [address] [place] [address], | | | | | | [place] [address] | | | | | | [phone] | | | | | | | | +--------+---------+ + + + | 09/29/ | Office | Urology | Mireya Pack, | | | 2019 | Visit | | INVESTMENT SPECIALIST [address] | | | | | | [address], | | | | | | [place] [address] | | | | | | [phone] | | | | | | | | | | | | Toy Wild, DO | | | | | | [address] | | | | | | [place] [address] | | | | | | [phone] | | | | | | | | +--------+---------+ + + + documented as of this encounter Procedures + +--------+ + + + | Procedure Name | Priori | Date/Time | Associated Diagnosis | Comments | | | ty | | | | + +--------+ + + + | EXTERNAL LAB: OCCULT | Routin | 01/10/2014 | | Results for this | | BLOOD, SCREENING | e | 9:08 PM | | procedure are in the | | | | PST | | results section. | + +--------+ + + + | XR ABDOMEN AP | Routin | 01/09/2014 | | Results for this | | UPRIGHT KUB AND PA | e | 10:44 PM | | procedure are in the | | CHEST | | PST | | results section. | + +--------+ + + + | EXTERNAL LAB: CBC | Routin | 01/09/2014 | | Results for this | | | e | 10:00 PM | | procedure are in the | | | | PST | | results section. | + +--------+ + + + | LIPASE | Routin | 01/09/2014 | | Results for this | | | e | 10:00 PM | | procedure are in the | | | | PST | | results section. | + +--------+ + + + | COMPREHENSIVE | Routin | 01/09/2014 | | Results for this | | METABOLIC PANEL | e | 10:00 PM | | procedure are in the | | | | PST | | results section. | + +--------+ + + + documented in this encounter Results External Lab: Occult Blood, Screening (01/10/2014 9:08 PM PST) + + | Specimen | + + | Stool specimen | | (specimen) | + + + + + | Narrative | Performed At | + + + | Dylan Almeida PA-C 01/10/2014 9:08 PM Guaiac negative | EXTERNAL LAB | | stool. Performed by ED provider. Hemoccult manufacturing quality manager Passed. | | | [facility] Department of Emergency | | | Medicine HPI History of Present Illness Patient | | | Identification Norah Gr is a 58 y.o. male. Patient | | | information was obtained from patient. History/Exam limitations: | | | none. Patient presented to the Emergency Department by: [facility] | | | 1721 Chief Complaint Chief Complaint Patient presents with | | | | | | Abdominal Pain RLQ The patient complains of abdominal | | | pain. Onset of symptoms was this morning, with a worsening course | | | since that time. The symptoms are described to be of moderate | | | severity. The patient also complains of decreased appetite. The | | | patient describes the quality and location of the symptoms as the | | | following: Sharp right lower and upper quadrant pain that is worse | | | with sitting and walking. Care prior to arrival consisted of Tums, | | | with no relief. States he has been urinating regularly, but has | | | irregular bowel movements. Past Medical History Diagnosis | | | Date | | | Diabetes mellitus type II | | | Atrial fibrillation | | | Hypertension | | | Hyperlipidemia | | | Anxiety | | | Depression | | | Renal failure | | | ARF (acute renal failure) 03/02/2013 | | | COPD (chronic obstructive pulmonary disease) 03/02/2013 | | | Development delay | | | Unspecified visual disturbance reading glasses | | | WARD (obstructive sleep apnea) 08/11/2012 does not use CPAP | | | because of the noise | | | GIB (gastrointestinal bleeding) 03/02/[address] Nur, rectal | | | ulcers, nodule of GE junction | | | Hypercholesterolemia 07/08/2013 | | | Obesity, Class I, BMI 30-34.9 07/08/2013 | | | Facial droop 07/08/2013 | | | Basal cell carcinoma 09/26/2012 arm and back Past Surgical | | | History Procedure Laterality Date | | | Unlisted procedure arthroscopy | | | Knee surgery rt knee, patella | | | Leg surgery LLE | | | Colonoscopy | | | Cholecystectomy, laparoscopic 09/12/2012 Procedure: | | | LAPAROSCOPIC - CHOLECYSTECTOMY; Surgeon: Jevon Vargas DO; | | | Location: [facility] MAIN OR; Service: General; Laterality: N/A; | | | | | | Abdominal surgery | | | Cholecystectomy | | | Skin cancer excision 10/10/2012 Procedure: EXCISION - SKIN | | | CANCER; Surgeon: Sy Fierro MD; Location: [facility] MAIN OR; | | | Service: Plastics; Laterality: Left; upper arm and upper back | | | w/frozen section | | | Esophagogastroduodenoscopy 03/03/2013 Procedure: | | | ESOPHAGOGASTRODUODENOSCOPY; Surgeon: Howie Gibson MD; Location: [facility] | | | ENDOSCOPY; Service: Gastroenterology; Laterality: N/A; | | | Colonoscopy 03/04/2013 Procedure: COLONOSCOPY; Surgeon: Howie | | | MD Paige; Location: [facility] ENDOSCOPY; Service: Gastroenterology; | | | Laterality: N/A; | | | Upper gastrointestinal endoscopy | | | Skin biopsy | | | Hernia repair 07/03/2013 Procedure: LAPAROSCOPIC - HERNIA - | | | INCISIONAL; Surgeon: Jevon Vargas DO; Location: [facility] MAIN | | | OR; Service: General; Laterality: N/A; Prior to Admission | | | medications Medication Sig Start Date End Date Taking? Authorizing | | | Provider Albuterol Sulfate (VENTOLIN HFA IN) Inhale 2 puffs into | | | the lungs as needed. Historical Provider | | | Qrlsa-I-Lnzahsizwblui (BEANO) TABS Take 150 Units by mouth 3 (three) | | | times daily as needed (As needed for gas). Historical Provider | | | amLODIPine (NORVASC) 10 MG tablet Take 1 tablet by mouth daily. | | | 12/03/13 Augustine Agosto MD antipyrine-benzocaine | | | (AURALGAN) otic solution Place 4 drops into both ears daily. | | | Historical Provider ARIPiprazole (ABILIFY) 15 MG tablet Take 20 mg | | | by mouth daily. Historical Provider aspirin 81 MG chewable | | | tablet Take 1 tablet by mouth daily with breakfast. 05/27/13 05/27/14 | | | Augustine Agosto MD calcium carbonate (TUMS) 500 MG chewable | | | tablet Take 500-1,000 mg by mouth daily as needed. For GERD | | | Historical Provider clonazePAM (KLONOPIN) 1 MG tablet Take 1 mg by | | | mouth 2 (two) times daily as needed for Anxiety. Historical | | | Provider diltiazem (CARDIZEM CD) 240 MG 24 hr capsule Take 1 capsule | | | by mouth daily. 11/30/13 11/30/14 Kristian Mae MD | | | docusate sodium (COLACE) 100 MG capsule Take 250 mg by mouth 2 (two) | | | times daily. "Hold if loose stools" as noted on APR from pt's | | | facility. Historical Provider fenofibrate (TRIGLIDE) 160 MG | | | tablet Take 160 mg by mouth daily. Historical Provider | | | gabapentin (NEURONTIN) 100 MG capsule Take 100 mg by mouth every | | | evening. Historical Provider insulin glargine (LANTUS) 100 | | | UNIT/ML injection Inject 82 Units into the skin nightly. 12/03/13 | | | Augustine Agosto MD lamoTRIgine (LAMICTAL) 100 MG tablet Take | | | 100 mg by mouth nightly. Historical Provider | | | aiiywekii-gewdxfdy-lesdsjcvf hydroxide-simethicone Take 40 mLs by | | | mouth daily as needed. Historical Provider lisinopril (ZESTRIL) | | | 40 MG tablet Take 40 mg by mouth every evening. 03/05/13 03/05/14 | | | Scott Martínez MD loperamide (IMODIUM) 2 MG capsule Take 2 mg by | | | mouth as needed. 4 mg after first loose stool, then 2 mg after each | | | further loose stool Not to exceed 8 mg per day. Historical | | | Provider lurasidone (LATUDA) 20 MG tablet Take 20 mg by mouth | | | nightly. T Historical Provider Mometasone Furo-Formoterol Fum | | | (DULERA) 100-5 MCG/ACT AERO Inhale 2 puffs into the lungs 2 (two) | | | times daily. Historical Provider nitroGLYCERIN (NITROSTAT) | | | 0.[address] 0.4 mg under the tongue every 5 (five) | | | minutes as needed. Historical Provider NOVOLOG 100 UNIT/ML | | | injection INJ 3U SUB-Q TID(AC) AND INJECT SUBCUTANEOUSLY PER SLIDING | | | SCALE 1-70= 2U, 71-100=3U, 101-120= 4U, 121-150=5U, 151-180=6U, | | | 181-210= 7U, 211- 04/23/13 Bang Yeh MD omeprazole (PRILOSEC) | | | 20 MG capsule Take 1 capsule by mouth 2 (two) times daily. 05/27/13 | | | 05/27/14 Augustine Agosto MD ondansetron (ZOFRAN-ODT) 4 MG | | | disintegrating tablet Take 4 mg by mouth every 6 (six) hours as | | | needed for Nausea. Historical Provider | | | oxyCODONE-acetaminophen (PERCOCET) 5-325 MG per tablet Take 1 tablet | | | by mouth every 6 (six) hours as needed for Pain. Historical | | | Provider paroxetine (PAXIL) 40 MG tablet Take 40 mg by mouth every | | | morning. Historical Provider polyethylene glycol (GLYCOLAX) | | | powder DISSOLVE 17GM IN LIQUID AND DRINK BY MOUTH EVERY DAY 04/23/13 | | | Bang Yeh MD pravastatin (PRAVACHOL) 20 MG tablet Take 20 mg by | | | mouth nightly. Historical Provider tamsulosin (FLOMAX) 0.4 MG | | | capsule Take 0.4 mg by mouth 2 (two) times daily. Administer 30 | | | minutes after the same meal each day. Capsules should be swallowed | | | whole; do not crush, chew, or open Historical Provider | | | tiotropium (SPIRIVA) 18 MCG inhalation capsule Inhale 18 mcg into | | | the lungs daily. Historical Provider Allergies Allergen | | | Reactions | | | Vitamin B12 Rash History Social History | | | Marital Status: Spouse Name: N/A Number of | | | Children: 1 | | | Years of Education: s. college Occupational History | | | disabled Social History Main Topics | | | Smoking status: Never Smoker | | | Smokeless tobacco: Never Used | | | Alcohol Use: 0.0 oz/week 1-2 Cans of beer per week | | | Comment: once week, occasionally | | | Drug Use: No | | | Sexual Activity: Not Currently Other Topics Concern | | | Not on file Social History Narrative [place], | | | [place], full code Family History Problem Relation Age of Onset | | | | | | Heart disease Father | | | Heart disease Sister | | | Diabetes type II Sister | | | Heart Problems Brother ROS Review of Systems | | | Constitutional: Negative for: fever, chills, fatigue, sweats | | | or weight loss Eyes: Negative for: decreased vision or | | | irritated eyes Nose: Negative for: nosebleed Throat: | | | Negative for: mouth sores Cardiovascular/Respiratory: Negative for: | | | chest pain, shortness of breath, cough Gastrointestinal: | | | Negative for: vomiting, diarrhea, black or bloody stools. | | | Positive for: Abdominal pain Genitourinary: Negative for: | | | dysuria, hematuria, urinary problems Musculoskeletal: Negative | | | for: myalgias and arthralgias Skin: Negative for: laceration or | | | lesion Neuro and psych: Negative for: fainting, head injury, | | | seizure, trouble walking Endocrine/Heme/Lymph: Negative for: | | | swollen lymph nodes, easy bruising Physical Exam Physical | | | Exam BP 112/59 - Pulse 84 - Temp(Src) 98.2 F (36.8 C) (Oral) | | | - Resp 16 - SpO2 94% Pulse Oximetry interpretation: Normal | | | General: Alert, in no apparent distress Eyes: Normal inspection, | | | pupils equal and round, non-icteric ENT: Ears:Copious cerumen in | | | ear canals, visualize TMs are clear. Nose normal Pharynx | | | normal Neck: Normal inspection Supple No lymphadenopathy | | | No meningismus Cardiovascular: Rate and rhythm normal No | | | murmurs Respiratory: Breath sounds normal bilaterally Abdomen: | | | Large, round. Small injection showed bruise on right middle | | | abdomen. Large ventral hernia with flexion is unchanged per the | | | patient. States pain to palpation of the right upper and right | | | lower quadrants. Abdomen is soft to palpation without guarding or | | | rebound. Heel tap, obturator, psoas signs all negative. No | | | guarding or rebound Genitourinary: No hernias noted. Nontender to | | | palpation. No rashes or lesions seen. Rectal exam: Guaiac | | | negative. QC ok Back: Normal inspection Skin: Color normal | | | Warm and dry No rash Neuro: No motor deficit No sensory | | | deficit Normal gait ED Course Medical Decision Making and | | | Emergency Department Course ED Department Course After | | | introducing myself to the patient, I performed a careful history and | | | physical examination. I formulated my differential diagnosis of | | | potential medical problems that I felt needed to be addressed during | | | this Emergency Room visit, briefly discussed this differential with | | | him, and then discussed the plan of care. I also carefully | | | discussed the risks and benefits of all diagnostic and treatment | | | modalities planned for this ED visit. Patient has numerous prior | | | visits to the ER for workups including abdominal pain and chest | | | pain. Differentials at this time include but are not limited to: | | | cholelithiasis, cholecystitis, hepatitis, pancreatitis, | | | nephrolithiasis, urine infection, anemia, dehydration, acute renal | | | failure, acute appendicitis, electrolyte changes, gastritis, | | | gastroenteritis and also ileus. 214 He is currently afebrile and | | | appears in no acute distress. The abdomen is not rigid and has no | | | signs of peritoneal irritation. Plan to order CBC, CMP, lipase, | | | abdominal x-rays, urine. 2245 The labs and abdominal x-rays | | | were reviewed with Dr. Ramirez. X-rays show large loops of bowel | | | with air and copious amounts of stool. No air-fluid level seen. | | | These findings were discussed by Dr. Ramirez with the radiologist. | | | Creatinine elevated at 1.62 and estimated GFR is 47. Elevated | | | blood sugars 200. CBC shows elevated white count at 14.1 , and | | | elevation of absolute neutrophils of 11.0. Previous laboratory | | | results show elevated creatinine and decreased GFR. 2310 | | | Lactulose and Maalox were ordered for the constipation. At this | | | time, the patient is resting comfortably and does not appear to be | | | in any distress. The abdomen remains soft with no guarding or | | | peritoneal signs and the patient states reduced pain. The abdomen | | | does not appear to be an acute surgical abdomen, requiring immediate | | | intervention. With this in mind, the patient does need to have | | | continued close following and needs to return to the ER within 12-24 | | | hours for reevaluation. This was discussed with the patient who | | | states that he will return to the ER tomorrow for recheck. He was | | | advised to immediately return if any fever, new or worsening | | | abdominal pain, nausea, vomiting, weakness, or any other complaints | | | or concerns. He was also encouraged to continue to drink plenty of | | | fluids and stay hydrated. Records Reviewed Old medical | | | records. Nursing notes. Labs | | + + + + +---------+ + + | Performing | Address | City/State/Zipcode | Phone Number | | Organization | | | | + +---------+ + + | EXTERNAL LAB | | | | + +---------+ + + XR Abd Supine and Upright w 1 Vw Chest (01/09/2014 10:44 PM PST) + + | Specimen | + + | | + + + + + | Impressions | Performed At | + + + | 1. Moderate constipation | | + + + + + + | Narrative | Performed At | + + + | [facility] 01/09/2014 10:44 PM | | | HISTORY: 58 years. Male. Abdominal pain TECHNIQUE: A PA view | | | of the chest and supine and erect views of the abdomen are obtained. | | | COMPARISON: None. FINDINGS: Chest: The heart is normal in | | | size. The lungs are normally expanded. The pulmonary vascular | | | pattern is normal. No acute airspace disease, parenchymal nodule, | | | mass, pleural effusion or pneumothorax is noted. No hilar adenopathy | | | is seen. The osseous structures are intact. Abdomen: Prior | | | surgery right upper quadrant Moderate constipation identified with | | | fecal material distributed throughout the colon. No evidence of | | | bowel obstruction or free air. The outlines of the abdominal organs | | | and psoas muscles are normal. No suspicious pathologic | | | calcifications identified. No significant skeletal abnormality | | | identified in abdomen or pelvis. | | + + + + + | Procedure Note | + + | Richard, Rad Conversion - 09/21/2018 3:31 PM PDT [facility] | | [id number]/09/2014 10:44 PM HISTORY:58 years. Male. Abdominal pain TECHNIQUE:A PA view of | | the chest and supine and erect views of the abdomen are obtained. COMPARISON:None. | | FINDINGS:Chest:The heart is normal in size. The lungs are normally expanded. The | | pulmonary vascular pattern is normal. No acute airspace disease, parenchymal nodule, | | mass, pleural effusion or pneumothorax is noted. No hilar adenopathy is seen. The | | osseous structures are intact. Abdomen: Prior surgery right upper quadrantModerate | | constipation identified with fecal material distributed throughout the colon. No | | evidence of bowel obstruction or free air. The outlines of the abdominal organs and | | psoas muscles are normal. No suspicious pathologic calcifications identified. No | | significant skeletal abnormality identified in abdomen or pelvis. IMPRESSION: 1. | | Moderate constipation | | | |FINDINGS: | |Chest: | |The heart is normal in size. The lungs are normally expanded. The pulmonary vascular pa ttern is normal. No acute airspace disease, parenchymal nodule, mass, pleural effusion or p neumothorax is noted. No hilar adenopathy is seen. The osseous | |structures are intact. | | | |Abdomen: Prior surgery right upper quadrant | |Moderate constipation identified with fecal material distributed throughout the colon. No evidence of bowel obstruction or free air. The outlines of the abdominal organs and psoas m uscles are normal. No | |suspicious pathologic calcifications identified. | | No significant skeletal abnormality identified in abdomen or pelvis. | | | |IMPRESSION: | |1. Moderate constipation | | | | | + + External Lab: CBC (01/09/2014 10:00 PM PST) + + + + + + | Component | Value | Ref Range | Performed | Pathologist | | | | | At | Signature | + + + + + + | WBC | 14.1 (H)Comment: Testing | 3.8 - 11.0 K/uL | EXTERNAL | | | | performed at [facility];[address] | | LAB | | | | [address];[place] | | | | | | [address] | | | | + + + + + + | Non- | 4.77Comment: Testing | 4.20 - 5.70 | EXTERNAL | | | Red Blood | performed at [facility];[address] | M/uL | LAB | | | Cells | [address];[place] | | | | | Counted | [id number] | | | | + + + + + + | Hemoglobin | 12.3 (L)Comment: Testing | 13.2 - 17.0 | EXTERNAL | | | | performed at [facility];[address] | g/dL | LAB | | | | [address];[place] | | | | | | [address] | | | | + + + + + + | Hematocrit, | 38.1 (L)Comment: Testing | 39.0 - 50.0 % | EXTERNAL | | | POC | performed at [facility];[address] | | LAB | | | | [address];[place] | | | | | | [address] | | | | + + + + + + | MCV | 79.8 (L)Comment: Testing | 80.0 - 100.0 fl | EXTERNAL | | | | performed at [facility];[address] | | LAB | | | | [address];[place] | | | | | | [address] | | | | + + + + + + | MCH | 25.9 (L)Comment: Testing | 27.0 - 34.0 pg | EXTERNAL | | | | performed at [facility];[address] | | LAB | | | | [address];[place] | | | | | | [address] | | | | + + + + + + | MCHC | 32.4Comment: Testing | 32.0 - 35.5 | EXTERNAL | | | | performed at [facility];[address] | g/dL | LAB | | | | [address];[place] | | | | | | [address] | | | | + + + + + + | RDW-CV | 41.1Comment: Testing | 37 - 53 fl | EXTERNAL | | | | performed at [facility];[address] | | LAB | | | | [address];[place] | | | | | | [address] | | | | + + + + + + | Platelet | 284Comment: Testing | 150 - 400 K/uL | EXTERNAL | | | Count | performed at [facility];[address] | | LAB | | | Plasma | [address];[place] | | | | | | [address] | | | | + + + + + + | MPV | 8.0Comment: Testing | fl | EXTERNAL | | | | performed at [facility];[address] | | LAB | | | | [address];[place] | | | | | | [address] | | | | + + + + + + | Differentia | AUTOMATEDComment: | | EXTERNAL | | | l Type | Testing performed at | | LAB | | | | [facility];[address];[place] [address] | | | | + + + + + + | % Segmented | 78.0Comment: Testing | % | EXTERNAL | | | | performed at [facility];[address] | | LAB | | | Neutrophils | [address];[place] | | | | | | [address] | | | | + + + + + + | % | 14.1Comment: Testing | % | EXTERNAL | | | Lymphocytes | performed at [facility];[address] | | LAB | | | | [address];[place] | | | | | | [address] | | | | + + + + + + | % Monocytes | 6.5Comment: Testing | % | EXTERNAL | | | | performed at [facility];[address] | | LAB | | | | [address];[place] | | | | | | [address] | | | | + + + + + + | % | 0.3Comment: Testing | % | EXTERNAL | | | Eosinophils | performed at [facility];[address] | | LAB | | | | [address];[place] | | | | | | [address] | | | | + + + + + + | % Basophils | 1.1Comment: Testing | % | EXTERNAL | | | | performed at [facility];[address] | | LAB | | | | [address];[place] | | | | | | [address] | | | | + + + + + + | Absolute | 11.0 (H)Comment: Testing | 1.9 - 7.4 K/uL | EXTERNAL | | | Segmented | performed at [facility];[address] | | LAB | | | Neutrophils | [address];[place] | | | | | | [address] | | | | + + + + + + | Absolute | 2.0Comment: Testing | 1.0 - 3.9 K/uL | EXTERNAL | | | Lymphocytes | performed at [facility];[address] | | LAB | | | | [address];[place] | | | | | | [address] | | | | + + + + + + | Absolute | 0.9 (H)Comment: Testing | 0 - 0.8 K/uL | EXTERNAL | | | Monocytes | performed at [facility];[address] | | LAB | | | | [address];[place] | | | | | | [address] | | | | + + + + + + | Absolute | 0.0Comment: Testing | 0 - 0.5 K/uL | EXTERNAL | | | Eosinophils | performed at [facility];[address] | | LAB | | | | [address];[place] | | | | | | [address] | | | | + + + + + + | Absolute | 0.2 (H)Comment: Testing | 0 - 0.1 K/uL | EXTERNAL | | | Basophils | performed at [facility];[address] | | LAB | | | | [address];[place] | | | | | | [address] | | | | + + + + + + + + | Specimen | + + | Blood specimen | | (specimen) | + + + +---------+ + + | Performing | Address | City/State/Zipcode | Phone Number | | Organization | | | | + +---------+ + + | EXTERNAL LAB | | | | + +---------+ + + Lipase (01/09/2014 10:00 PM PST) + + + + + + | Component | Value | Ref Range | Performed | Pathologist | | | | | At | Signature | + + + + + + | Lipase | 82Comment: Testing | 73 - 393 U/L | EXTERNAL | | | | performed at [facility];[address] | | LAB | | | | [address];[place] | | | | | | [address] | | | | + + + [...] + +---------+ + + Comprehensive Metabolic Panel (01/09/2014 10:00 PM PST) + + + + [...] | LAB | | | | [address];[place] | | | | | | [address] | | | | + + + + + + | K | 4.2Comment: Testing | 3.5 - 4.9 | EXTERNAL | | | | performed at [facility];[address] | mmol/L | LAB | | | | [address];[place] | | | | | | [address] | | | | + + + + + + | Cl | 102Comment: Testing | 99 - 109 mmol/L | EXTERNAL | | | | performed at [facility];[address] | | LAB | | | | [address];[place] | | | | | | [address] | | | | + + + + + + | CO2 | 29Comment: Testing | 23 - 32 mmol/L | EXTERNAL | | | | performed at [facility];[address] | | LAB | | | | [address];[place] | | | | | | [address] | | | | + + + + + + | Anion Gap | 11Comment: Testing | 5 - 20 mmol/L | EXTERNAL | | | | performed at [facility];[address] | | LAB | | | | [address];[place] | | | | | | [address] | | | | + + + + + + | Glucose, | 200 (H)Comment: Testing | 65 - 99 mg/dL | EXTERNAL | | | Fasting | performed at [facility];[address] | | LAB | | | | [address];[place] | | | | | | [address] | | | | + + + + + + | BUN | 25Comment: Testing | 8 - 25 mg/dL | EXTERNAL | | | | performed at [facility];[address] | | LAB | | | | [address];[place] | | | | | | [address] | | | | + + + + + + | Creatinine | 1.62 (H)Comment: Testing | 0.70 - 1.30 | EXTERNAL | | | | performed at [facility];[address] | mg/dL | LAB | | | | [address];[place] | | | | | | [address] | | | | + + + + + + | BUN/Creatin | 16Comment: Testing | | EXTERNAL | | | ine Ratio | performed at [facility];[address] | | LAB | | | | [address];[place] | | | | | | [address] | | | | + + + + + + | Calcium | 8.9Comment: Testing | 8.5 - 10.2 | EXTERNAL | | | | performed at [facility];[address] | mg/dL | LAB | | | | [address];[place] | | | | | | [address] | | | | + + + + + + | Protein, | 7.2Comment: Testing | 6.3 - 8.2 g/dL | EXTERNAL | | | Total | performed at [facility];[address] | | LAB | | | | [address];[place] | | | | | | [address] | | | | + + + + + + | Albumin | 3.4 (L)Comment: Testing | 3.6 - 5.0 g/dL | EXTERNAL | | | | performed at [facility];[address] | | LAB | | | | [address];[place] | | | | | | [address] | | | | + + + + + + | Globulin | 3.7Comment: Testing | 1.3 - 4.9 g/dL | EXTERNAL | | | | performed at [facility];[address] | | LAB | | | | [address];[place] | | | | | | [address] | | | | + + + + + + | A/G Ratio | 0.9 (L)Comment: Testing | 1.0 - 2.4 | EXTERNAL | | | | performed at [facility];[address] | | LAB | | | | [address];[place] | | | | | | [address] | | | | + + + + + + | Bilirubin | 0.3Comment: Testing | 0.1 - 1.5 mg/dL | EXTERNAL | | | Total | performed at [facility];[address] | | LAB | | | | [address];[place] | | | | | | [address] | | | | + + + + + + | ALP, | 87Comment: Testing | 35 - 115 U/L | EXTERNAL | | | External | performed at [facility];[address] | | LAB | | | | [address];[place] | | | | | | [address] | | | | + + + + + + | AST | 16Comment: Testing | 10 - 45 U/L | EXTERNAL | | | | performed at [facility];[address] | | LAB | | | | [address];[place] | | | | | | [address] | | | | + + + + + + | ALT | 25Comment: Testing | 10 - 65 U/L | EXTERNAL | | | | performed at [facility];[address] | | LAB | | | | [address];[place], [place] | | | | | | [address] | | | | + + + [...] | | at [facility];[address] [place] [address] | | | | | | [facility];[place] [address] | | | | + + + [...]
--- OUTSIDE RECORDS SUMMARY | ~2019-09-09 | XMS | Encounter Summary ---
Demographics + + + | Address | [address] | | | [place] [address] | + + + | Home Phone [...] Sammi Kohler | ECON | [place] [address] | | + + + + + Care Team Providers + +------+ + | Care Boarding Room Fixer Name | Role | Phone | + [...] | (asymptomatic) | | | | [address] | | | | | | [place] | | | | | | [address] | | | | | | [phone] | | | +--------+ + + + [...] - 08/05/2019 8:20 AM [facility], [facility], left VM with clinic phone number. elephone Encounter - Mireya Pack NP - 08/02/2019 4:2 9 PM PDTagree elephon e Encounter - Lucia Amos RN - 08/02/2019 3:32 PM PDTCall received from [facility] staff Destiny, c/o patient's BP is elevated [...] | | 2019 | Visit | | [facility] [address] | | | | | | [address] [place], | | | | | | [place] [address] | | | | | | [phone] | | | | | | | | +--------+---------+ + + + | 09/29/ | Office | Urology | Mireya Pack, | | | 2019 | Visit | | [facility] [address] | | | | | | [address] [place], | | | | | | [place] [address] | | | | | | [phone] | | | | | | | | | | | | Toy Wild DO | | | | | | [address] | | | | | | [place] [address] | | | | | | [phone] | | | | | | | | +--------+---------+ + + + documented as of this encounter Visit Diagnoses Not on filedocumented in this encounter"
--- OUTSIDE RECORDS SUMMARY | ~2019-09-09 | XMS | Encounter Summary ---
Demographics + + + | Address | [address] | | | [place] [address] | + + + | Home Phone [...] + | Sammi Kohler | ECON | [place] [address] | | + + + + + Care Team Providers + +------+ + | Care Queen'S Counsel Name | Role | Phone | + +------+ + PCP | Unavailable | + +------+ + Encounter Details +--------+ + + + + | Date | Type | Department | Care Team | Description | +--------+ + + + + | 08/22/ | Emergency | [facility] | Marcos Nugent, | Chest pain | | 2013 - | | MEDICAL CENTER | MD Darrick MAHER | | | | | EMERGENCY CENTER | [place] [address] | | | 08/23/ | | [address] | [phone] | | | 2013 | | [place], [place] | | | | | | [address] | | | | | | [phone] | | | +--------+ + + + [...] + documented as of this encounter ED Clyde Ricen - 08/22/2013 10:19 PM PDTFormatting of this note might be different fro m the original. ED Provider Notes by Antonella Kendrick PA-C at 08/22/132218 Author: Antonella Kendrick PA-C Service: (none) Author Type: Physician Physician Assistant Primary Care - Cer tified Filed: 08/23/13 6239 Date of Service: 08/22/132218 Status: Signed Bench Worker Helper: Antonella Kendrick PA-C (Physician Physician Assistant Primary Care - Certified) Related Notes: Cosigned by Marcos Nugent MD (Physician) filed at 08/23/132037 Procedures [facility] Department of Emergency Medicine History of Present Illness Patient Identification Kevyn Guzman is a 57 y.o. male. Patient information was obtained from patient. History/Exam limitations: none. Patient presented to the Emergency Department by: Car Chief Complaint Chief Complaint Patient presents with Chest Pain I threw up my dinner, I had sharp pain in my chest today, I take no chances Hypertension 57 year old male to the ED for evaluation of chest pain. He reports he began to experience a sharp, stabbing pain to the center of his chest at about 1500 today that has been persist ent. It is not associated with shortness of breath or diaphoresis, but he did have a single episode of vomiting. He has chronic chest pain and has been seen for this many times in e past. A nuclear med stress test was performed in April and an echocardiogram in May, of which were normal. Extensive medical history, however the patient appears to be anxi ous. States that he does not want to take any chances because his father at a very you ng age. Currently rates his pain a 6 on a scale of 1 to 10. Past Medical History Diagnosis Date Diabetes mellitus [...] - CHOLECYSTECTOMY; Surgeon: Jevon Vargas DO; Location: [facility] MAIN OR; Service: General; Laterality: N/A; Abdominal surgery Cholecystectomy Skin cancer excision 10/10/2012 Procedure: EXCISION - SKIN CANCER; Surgeon: Sy Fierro MD; Location: [facility] MA[facility] OR ; Service: Plastics; Laterality: Left; upper arm and upper back w/frozen section Esophagogastroduodenoscopy 03/03/2013 Procedure: ESOPHAGOGASTRODUODENOSCOPY; Surgeon: Howie Gibson MD; Location: [facility] ENDOSCOPY; S ervice: Gastroenterology; Laterality: N/A; Colonoscopy 03/04/2013 Procedure: COLONOSCOPY; Surgeon: Howie Gibson MD; Location: [facility] ENDOSCOPY; Service: Gastroe nterology; Laterality: N/A; Upper gastrointestinal endoscopy Skin biopsy Hernia repair 07/03/2013 Procedure: LAPAROSCOPIC - HERNIA - INCISIONAL; Surgeon: Jevon Vargas DO; Location: [facility] MAIN OR; Service: General; [...] breakfast. 05/27/13 05/27/14 Yes Augustine Agosto MD cloNIDine (CATAPRES) 0.2 MG tablet Take 1 tablet by mouth 3 (three) times daily. 03/05/13 Yes Scott Martínez MD HYDROcodone-acetaminophen (NORCO) 5-325 MG per tablet Take 1 tablet by mouth every 6 (six) hours as needed. Yes Historical Provider insulin glargine (LANTUS) 100 UNIT/ML injection Inject 67 Units into the skin nightly. Ye s Historical Provider lisinopril (ZESTRIL) 40 MG tablet Take 40 mg by mouth every evening. 03/05/13 03/05/14 Yes Reynold Martínez MD LORazepam (ATIVAN) 1 MG tablet Take 1 mg by mouth every 6 (six) hours as needed. Yes Hist orical Provider Mometasone Furo-Formoterol Fum (DULERA) 100-5 MCG/ACT [...] mouth every morning. Yes Historical Provide r calcium carbonate (TUMS) 500 MG chewable tablet Take 500-1,000 mg by mouth daily as needed. For GERD Historical Provider diltiazem (DILACOR XR) 180 MG 24 hr capsule Take 180 mg by mouth daily. Historical Provi carlos docusate sodium (COLACE) 100 MG capsule Take 100 mg by mouth nightly. Historical Provide r fenofibrate (TRIGLIDE) 160 MG tablet Take 160 mg by mouth daily. Historical Provider lxfdtonff-kjvjpeli-ksuresllu hydroxide-simethicone Take 40 mLs by mouth daily as needed. Historical Provider loperamide (IMODIUM) 2 MG capsule Take 2 mg by mouth as needed. 4 mg after first loose stoo l, then 2 mg after each further loose stool Not to exceed 8 mg per day. Historical Provider meclizine (ANTIVERT) 25 MG tablet Take 25 mg by mouth 3 (three) times daily as needed. Kalpana cations: Sensation of Spinning or Whirling Historical Provider polyethylene glycol (GLYCOLAX) powder DISSOLVE [...] for fever and chills. Respiratory: Negative for cough and shortness of breath. Cardiovascular: Positive for chest pain. Negative for palpitations and leg swelling. Gastrointestinal: Positive for vomiting. Negative for nausea, abdominal pain, diarrhea and constipation. Genitourinary: Negative for dysuria. Skin: Negative for rash. Neurological: Negative for dizziness and headaches. Endo/Heme/Allergies: Does not bruise/bleed easily. All other systems reviewed and are negative. Physical Exam BP 141/85 | Pulse 85 | Temp 97.4 F (36.3 C) (Oral) | Resp 20 | Ht 1.803 m (5' 11") | Wt 106.142 kg (234 lb) | BMI 32.65 kg/m2 | SpO2 95% Pulse Oximetry interpretation: Normal General: Alert, anxious but in no acute distress with normal vitals as above. Eyes: Normal inspection, pupils equal and round, non-icteric Neck: Normal inspection Cardiovascular: Rate and rhythm normal Respiratory: Breath sounds normal bilaterally. Respirations are non-labored. Pain is not reproducible Abdomen: Soft, non-tender, non-distended No guarding or rebound. Bowel sounds present. Genitourinary: Deferred Rectal exam: Deferred Skin: Color normal Warm and dry No rash Neuro: No motor deficit No sensory deficit Awake and alert , moves all extremities with purpose. Medical Decision Making and Emergency Department Course I have seen this patient several times in the past for the same complaint and he has has mu ltiple cardiac evaluations. He received a nuclear stress test here in April that revealed n o acute findings and he had an echocardiogram in May which was also unremarkable - informa tion extracted from a review of old records. Cardiac panel and EKG were ordered prior to my assessment. Enzymes are negative, EKG is unchanged from prior EKG's and labs are generally unremarkable. When I went to reassess the patient, he commented that he did not get his ni tro and his pain is still a 6. I explained that I do not feel this is a cardiac issue he rep lied that he did not get any relief from the GI cocktail that I had ordered and wanted his n itro because "I just can't take any chances. My dad at an early age." The patient is noted to live in a halfway and appears to have some mental delays. His responses to ques tions are almost as if he is programmed to say certain issues. I have discussed the patient with Dr. Nugent who will evaluate the patient. I have ordered nitro ED Department Course Dr. Nugent has evaluated the patient and suggests a repeat troponin - if negative I will discharge him home with cardiac f/u. The patient reports to Dr. Nugent that he was seen l ast night at [facility] for the same thing, was admitted overnight and had a stress test this am prior to discharge. Repeat troponin is negative and patient reports his pain is gone and he wants to go home Records Reviewed Old medical records. Previous electrocardiograms. Previous radiology studies. Laboratory Evaluation Results Procedure Component Value Ref Range Date/Time POC cardiac troponin [[id number]] Collected:08/23/138 Order Status:Completed Updated:08/23/130 POC CARDIAC TROPONIN 0.02 0.00 - 0.10 ng/mL Cardiac Panel [[id number]] (Abnormal) Collected:08/22/131999 Order Status:Completed Updated:08/22/132038 WBC 9.8 3.8 - 11.0 K/uL RBC 5.10 4.20 - 5.70 M/uL HGB 13.6 13.2 - 17.0 g/dL HCT 40.3 39.0 - 50.0 % MCV 79.1 (L) 80.0 - 100.0 fl MCH 26.7 (L) 27.0 - 34.0 pg MCHC 33.8 32.0 - 35.5 g/dL RDW SD 41.6 37 - 53 fl PLT 317 150 - 400 K/uL MPV 7.2 fl DIFF TYPE AUTOMATED NEUTROPHILS 66.8 % LYMPHOCYTES 23.4 % MONOCYTES 8.0 % EOSINOPHILS 1.4 % BASOPHILS 0.4 % NEUTROPHILS ABS 6.6 1.9 - 7.4 K/uL LYMPHOCYTES ABS 2.3 1.0 - 3.9 K/uL MONOCYTES ABS 0.8 0 - 0.8 K/uL EOSINOPHILS ABS 0.1 0 - 0.5 K/uL BASOPHILS ABS 0.0 0 - 0.1 K/uL SODIUM 141 135 - 143 mmol/L POTASSIUM 3.5 3.5 - 4.9 mmol/L CHLORIDE 105 99 - 109 mmol/L CO2 27 23 - 32 mmol/L ANION GAP AGAP 12 5 - 20 mmol/L GLUCOSE 160 (H) 65 - 99 mg/dL BUN 18 8 - 25 mg/dL CREATININE 1.16 0.70 - 1.30 mg/dL BUN/CREAT 15 CALCIUM 8.8 8.5 - 10.2 mg/dL TOTAL PROTEIN 7.6 6.3 - 8.2 g/dL Albumin 3.3 (L) 3.6 - 5.0 g/dL GLOBULIN 4.3 1.3 - 4.9 g/dL A/G 0.8 (L) 1.0 - 2.4 TBIL 0.2 0.1 - 1.5 mg/dL ALK PHOS 97 35 - 115 U/L AST 20 10 - 45 U/L ALT 28 10 - 65 U/L EGFR >60 >60 mL/min/1.73m2 CPK 152 55 - 400 U/L INR 1.0 APTT 24 23 - 32 seconds MMB 3.6 0.5 - 3.6 ng/mL CK-MB Index 2.4 Lipase [[id number]] Collected:08/22/131999 Order Status:Completed Updated:08/22/132035 Specimen Information:Blood LIPASE 125 73 - 393 U/L POC cardiac troponin [[id number]] Collected:08/22/132006 Order Status:Completed Updated:08/22/132019 POC CARDIAC TROPONIN 0.02 0.00 - 0.10 ng/mL Radiology and EKG Evaluation Imaging Results XR Chest PA and Lateral (Final result) Result time:08/22/132038 Final result by Rad Results In Richard (08/22/13 20:39:21) Impression: 1. No active intrathoracic disease. Narrative: HISTORY: Chest pain. COMPARISON: 08/13/13. TECHNIQUE: Frontal and lateral films of the chest were obtained. FINDINGS: Heart size is normal. Epicardial fat at the cardiac apex again noted. No infiltrates or eff usions. Mild degenerative changes thoracic spine. ED Diagnosis Final diagnosis Chest pain - unknown etiology Disposition: ED Disposition Discharge Condition at discharge: Stable Follow-up Information Follow up With Details Comments Contact Info Thang Sterling MD Schedule an appointment as soon as possible for a visit tomorrow [address] [place] [address] [facility] [id number] DO Antonella Ba PA-C 08/23/13448 Marcos Delgadillo MD - 08/22/2013 10:19 PM PDT ED Provider Notes by Marcos Nugent MD at 08/22/132218 Author: Marcos Nugent MD Service: (none) Author Type: Physician Filed: 08/23/132037 Date of Service: 08/22/132218 Status: Signed Bench Worker Helper: Marcos Nugent MD (Physician) Related Notes: Related Note by Antonella Kendrick PA-C (Physician Physician Assistant Primary Care - Certified) filed at 08/23/13448 I have reviewed the note and supervised the mid-level provider. Marcos Nugent MD 08/23/132037 Marcos Delgadillo MD - 08/22/2013 9:39 PM PDT ED Provider Notes by Marcos Nugent MD at 08/22/132138 Author: Marcos Nugent MD Service: (none) Author Type: Physician Filed: 08/23/13 0043 Date of Service: 08/22/132138 Status: Addendum Bench Worker Helper: Marcos Nugent MD (Physician) Related Notes: Original Note by Marcos Nugent MD (Physician) filed at 08/22/132332 EKG done at 7:44 PM, rate 102, sinus tachycardia with premature atrial complexes, nonspecif ic ST abnormality, no overt ischemic changes. EKG interpreted by myself the time of carmena l encounter. As supervising physician, examined the patient, reviewed the history of present illness and ROS independently. Patient states these had ongoing issue for the past year with intermittent chest pain, he w as [facility] had a stress test done which was normal a nd the patient was discharged. Furthermore the patient did have a stress test in April or A pril of 2013 done here at our facility which also did not reveal any evidence of acute cardi ac disease. The patient does have a prescription for outpatient nitroglycerin, he does receive that int ermittently from the staff at his care facility. He indicates that today he was not home he nce he cannot have a nitroglycerin and hence presented here to the emergency department. He denies any feeling of impending doom, a vague aching burning sensation in his chest, he does normally take oxycodone. He did have one episode of vomiting with some associated naus ea. His cardiac evaluation today does not reveal any acute pathology. We did give him a trial of GI cocktail, sublingual nitroglycerin, and we will give him oxyc odone tablet as well. As the patient has had significant prior cardiac evaluation to look for unstable angina, an d has had recent repeat evaluation. I do not find any indication for admission to the [facility]. With the onset of the symptoms, and negative troponin. Pt's symptoms have been ongoing for greater than 9 hours, if the symptoms were due to cardi ac ischemia, I would expect there to be elevation in pt's cardiac markers. There is no elev ation of the cardiac markers and therefore the likelihood of this patient's symptoms being d ue to an acute cardiac event is very low. Pt will ensure they establish close follow-up for further evaluation of these symptoms. We have repeated a repeat troponin in order to be cautious. Repeat troponin is negative as well. Additional Documentation Procedures Marcos Nugent MD 08/22/132139 Marcos Nugent MD 08/22/13 2331 Marcos Nugent MD 08/22/13 2333 Marcos Nugent MD 08/23/13 0043 onversion Transac tion, Provider Unknown - 08/22/2013 8:25 PM PDTFormatting of this note might be different f rom the original. ED Notes by Itzel Hussein RN at 08/22/132024 Author: Itzel Hussein RN Service: (none) Author Type: Registered Nurse Filed: 08/22/132034 Date of Service: 08/22/132024 Status: Signed Bench Worker Helper: Itzel Hussein RN (Registered Nurse) Returned from XR. Will continue to monitor. Itzel Hussein RN 08/22/132034 docume nted in this encounter Plan of Treatment +--------+---------+ + + + | Date | Type | Specialty | Care Team | Description | +--------+---------+ + + + | 09/10/ | Office | Geriatric Medicine | Mireya Pack, | | | 2019 | Visit | | [employer] [address] | | | | | | [address] [place], | | | | | | [place] [address] | | | | | | [phone] | | | | | | | | +--------+---------+ + + + | 09/29/ | Office | Urology | Mireya Pack, | | | 2020 | Visit | | [employer]ERK [address] | | | | | | [address] [place], | | | | | | [place] [address] | | | | | | [phone] | | | | | | | | | | | | Toy Wild, DO | | | | | | [address] | | | | | | [place] [address] | | | | | | [phone] | | | | | | | | +--------+---------+ + + + documented as of this encounter Procedures + +--------+ + + + | Procedure Name | Priori | Date/Time | Associated Diagnosis | Comments | | | ty | | | | + +--------+ + + + | XR CHEST 2 VIEWS | Routin | 08/22/2013 | | Results for this | | | e | 8:20 PM | | procedure are in the | | | | PDT | | results section. | + +--------+ + + + | HISTORICAL LAB PANEL | Routin | 08/22/2013 | | Results for this | | RESULT | e | 8:00 PM | | procedure are in the | | | | PDT | | results section. | + +--------+ + + + | LIPASE | Routin | 08/22/2013 | | Results for this | | | e | 8:00 PM | | procedure are in the | | | | PDT | | results section. | + +--------+ + + + | ECG 12 LEAD | Routin | 08/22/2013 | | Results for this | | | e | 7:44 PM | | procedure are in the | | | | PDT | | results section. | + +--------+ + + + documented in this encounter Results XR Chest 2 Vws (08/22/2013 8:20 PM PDT) + + | Specimen | + + | | + + + + + | Impressions | Performed At | + + + | 1. No active intrathoracic disease. | | + + + + + + | Narrative | Performed At | + + + | HISTORY: Chest pain. COMPARISON: 08/13/13. TECHNIQUE: | | | Frontal and lateral films of the chest were obtained. FINDINGS: | | | Heart size is normal. Epicardial fat at the cardiac apex again noted. | | | No infiltrates or effusions. Mild degenerative changes thoracic spine. | | | | | + + + + + | Procedure Note | + + | Richard, Rad Conversion - 09/21/2018 3:31 PM PDT HISTORY:Chest pain. COMPARISON:08/13/13. | | TECHNIQUE:Frontal and lateral films of the chest were obtained. FINDINGS:Heart size is | | normal. Epicardial fat at the cardiac apex again noted. No infiltrates or effusions. | | Mild degenerative changes thoracic spine. IMPRESSION: 1. No active intrathoracic | | disease. | | | |TECHNIQUE: | |Frontal and lateral films of the chest were obtained. | | | |FINDINGS: | |Heart size is normal. Epicardial fat at the cardiac apex again noted. No infiltrates or eff usions. Mild degenerative changes thoracic spine. | | | |IMPRESSION: | |1. No active intrathoracic disease. | | | | | + + HISTORICAL LAB PANEL RESULT (08/22/2013 8:00 PM PDT) + + + + + -+ | Component | Value | Ref Range | Performed | Pathologist | | | | | At | Signature | + + + + + -+ | WBC | 9.8Comment: Testing | 3.8 - 11.0 K/uL | EXTERNAL | | | | performed at [facility];[address] | | LAB | | | | [address];[place] | | | | | | [address] | | | | + + + + + -+ | Non- | 5.10Comment: Testing | 4.20 - 5.70 | EXTERNAL | | | Red Blood | performed at [facility];[address] | M/uL | LAB | | | Cells | [address];[place] | | | | | Counted | [id number] | | | | + + + + + -+ | Hemoglobin | 13.6Comment: Testing | 13.2 - 17.0 | EXTERNAL | | | | performed at [facility];[address] | g/dL | LAB | | | | [address];[place] | | | | | | [address] | | | | + + + + + -+ | Hematocrit, | 40.3Comment: Testing | 39.0 - 50.0 % | EXTERNAL | | | POC | performed at [facility];[address] | | LAB | | | | [address];[place] | | | | | | [address] | | | | + + + + + -+ | MCV | 79.1 (L)Comment: Testing | 80.0 - 100.0 fl | EXTERNAL | | | | performed at [facility];[address] | | LAB | | | | [address];[place] | | | | | | [address] | | | | + + + + + -+ | MCH | 26.7 (L)Comment: Testing | 27.0 - 34.0 pg | EXTERNAL | | | | performed at [facility];[address] | | LAB | | | | [address];[place] | | | | | | [address] | | | | + + + + + -+ | MCHC | 33.8Comment: Testing | 32.0 - 35.5 | EXTERNAL | | | | performed at [facility];[address] | g/dL | LAB | | | | [address];[place] | | | | | | [address] | | | | + + + + + -+ | RDW-CV | 41.6Comment: Testing | 37 - 53 fl | EXTERNAL | | | | performed at [facility];[address] | | LAB | | | | [address];[place] | | | | | | [address] | | | | + + + + + -+ | Platelet | 317Comment: Testing | 150 - 400 K/uL | EXTERNAL | | | Count | performed at [facility];[address] | | LAB | | | Plasma | [address];[place] | | | | | | [address] | | | | + + + + + -+ | MPV | 7.2Comment: Testing | fl | EXTERNAL | | | | performed at [facility];[address] | | LAB | | | | [address];[place] | | | | | | [address] | | | | + + + + + -+ | Differentia | AUTOMATEDComment: | | EXTERNAL | | | l Type | Testing performed at | | LAB | | | | [facility];[address];[place] [address] | | | | + + + + + -+ | % Segmented | 66.8Comment: Testing | % | EXTERNAL | | | | performed at [facility];[address] | | LAB | | | Neutrophils | [address];[place] | | | | | | [address] | | | | + + + + + -+ | % | 23.4Comment: Testing | % | EXTERNAL | | | Lymphocytes | performed at [facility];[address] | | LAB | | | | [address];[place] | | | | | | [address] | | | | + + + + + -+ | % Monocytes | 8.0Comment: Testing | % | EXTERNAL | | | | performed at [facility];[address] | | LAB | | | | [address];[place] | | | | | | [address] | | | | + + + + + -+ | % | 1.4Comment: Testing | % | EXTERNAL | | | Eosinophils | performed at [facility];[address] | | LAB | | | | [address];[place] | | | | | | [address] | | | | + + + + + -+ | % Basophils | 0.4Comment: Testing | % | EXTERNAL | | | | performed at [facility];[address] | | LAB | | | | [address];[place] | | | | | | [address] | | | | + + + + + -+ | Absolute | 6.6Comment: Testing | 1.9 - 7.4 K/uL | EXTERNAL | | | Segmented | performed at [facility];[address] | | LAB | | | Neutrophils | [address];[place] | | | | | | [address] | | | | + + + + + -+ | Absolute | 2.3Comment: Testing | 1.0 - 3.9 K/uL | EXTERNAL | | | Lymphocytes | performed at [facility];[address] | | LAB | | | | [address];[place] | | | | | | [address] | | | | + + + + + -+ | Absolute | 0.8Comment: Testing | 0 - 0.8 K/uL | EXTERNAL | | | Monocytes | performed at [facility];[address] | | LAB | | | | [address];[place] | | | | | | [address] | | | | + + + + + -+ | Absolute | 0.1Comment: Testing | 0 - 0.5 K/uL | EXTERNAL | | | Eosinophils | performed at [facility];[address] | | LAB | | | | [address];[place] | | | | | | [address] | | | | + + + + + -+ | Absolute | 0.0Comment: Testing | 0 - 0.1 K/uL | EXTERNAL | | | Basophils | performed at [facility];[address] | | LAB | | | | [address];[place] | | | | | | [address] | | | | + + + + + -+ | Na | 141Comment: Testing | 135 - 143 | EXTERNAL | | | | performed at [facility];[address] | mmol/L | LAB | | | | [address];[place] | | | | | | [address] | | | | + + + + + -+ | K | 3.5Comment: Testing | 3.5 - 4.9 | EXTERNAL | | | | performed at [facility];[address] | mmol/L | LAB | | | | [address];[place] | | | | | | [address] | | | | + + + + + -+ | Cl | 105Comment: Testing | 99 - 109 mmol/L | EXTERNAL | | | | performed at [facility];[address] | | LAB | | | | [address];[place] | | | | | | [address] | | | | + + + + + -+ | CO2 | 27Comment: Testing | 23 - 32 mmol/L | EXTERNAL | | | | performed at [facility];[address] | | LAB | | | | [address];[place] | | | | | | [address] | | | | + + + + + -+ | Anion Gap | 12Comment: Testing | 5 - 20 mmol/L | EXTERNAL | | | | performed at [facility];[address] | | LAB | | | | [address];[place] | | | | | | [address] | | | | + + + + + -+ | Glucose, | 160 (H)Comment: Testing | 65 - 99 mg/dL | EXTERNAL | | | Fasting | performed at [facility];[address] | | LAB | | | | [address];[place] | | | | | | [address] | | | | + + + + + -+ | BUN | 18Comment: Testing | 8 - 25 mg/dL | EXTERNAL | | | | performed at [facility];[address] | | LAB | | | | [address];[place] | | | | | | [address] | | | | + + + + + -+ | Creatinine | 1.16Comment: Testing | 0.70 - 1.30 | EXTERNAL | | | | performed at [facility];[address] | mg/dL | LAB | | | | [address];[place] | | | | | | [address] | | | | + + + + + -+ | BUN/Creatin | 15Comment: Testing | | EXTERNAL | | | ine Ratio | performed at [facility];[address] | | LAB | | | | [address];[place] | | | | | | [address] | | | | + + + + + -+ | Calcium | 8.8Comment: Testing | 8.5 - 10.2 | EXTERNAL | | | | performed at [facility];[address] | mg/dL | LAB | | | | [address];[place] | | | | | | [address] | | | | + + + + + -+ | Protein, | 7.6Comment: Testing | 6.3 - 8.2 g/dL | EXTERNAL | | | Total | performed at [facility];[address] | | LAB | | | | [address];[place] | | | | | | [address] | | | | + + + + + -+ | Albumin | 3.3 (L)Comment: Testing | 3.6 - 5.0 g/dL | EXTERNAL | | | | performed at [facility] [facility];[address] | | LAB | | | | [address];[place] | | | | | | [address] | | | | + + + + + -+ | Globulin | 4.3Comment: Testing | 1.3 - 4.9 g/dL | EXTERNAL | | | | performed at [facility];[address] | | LAB | | | | [address];[place] | | | | | | [address] | | | | + + + + + -+ | A/G Ratio | 0.8 (L)Comment: Testing | 1.0 - 2.4 | EXTERNAL | | | | performed at [facility];[address] | | LAB | | | | [address];[place] | | | | | | [address] | | | | + + + + + -+ | Bilirubin | 0.2Comment: Testing | 0.1 - 1.5 mg/dL | EXTERNAL | | | Total | performed at [facility];[address] | | LAB | | | | [address];[place] | | | | | | [address] | | | | + + + + + -+ | ALP, | 97Comment: Testing | 35 - 115 U/L | EXTERNAL | | | External | performed at [facility];[address] | | LAB | | | | [address];[place] | | | | | | [address] | | | | + + + + + -+ | AST | 20Comment: Testing | 10 - 45 U/L | EXTERNAL | | | | performed at [facility];[address] | | LAB | | | | [address];[place] | | | | | | [address] | | | | + + + + + -+ | ALT | 28Comment: Testing | 10 - 65 U/L | EXTERNAL | | | | performed at [facility];[address] | | LAB | | | | [address];[place] | | | | | | [address] | | | | + + + [...] | | | | | | at [facility];[address];[place] [address] | | | | + + + + + -+ | CK, Total | 152Comment: Testing | 55 - 400 U/L | EXTERNAL | | | | performed at [facility];[address] | | LAB | | | | [address];[place] | | | | | | [address] | | | | + + + [...] | | | | | performed at [facility];[address] | | | | | | [address];[place] | | | | | | [address] | | | | + + + + + -+ | aPTT, | 24Comment: Testing | 23 - 32 seconds | EXTERNAL | | | Patient | performed at [facility];[address] | | LAB | | | | [address];[place] | | | | | | [address] | | | | + + + + + -+ | CK-MB | 3.6Comment: Testing | 0.5 - 3.6 ng/mL | EXTERNAL | | | | performed at [facility];[address] | | LAB | | | | [address];[place], [place] | | | | | | [address] | | | | + + + [...] | | + +---------+ + + Lipase (08/22/2013 8:00 PM PDT) + + + + + + | Component | Value | Ref Range | Performed | Pathologist | | | | | At | Signature | + + + + + + | Lipase | 125Comment: Testing | 73 - 393 U/L | EXTERNAL | | | | performed at [facility];[address] | | LAB | | | | [address] [facility];[place], [place] | | | | | | [address] | | | | + + + [...] + +---------+ + + ECG 12 lead (08/22/2013 7:44 PM PDT) + + + + + + | Component | Value | Ref Range | Performed | Pathologist | | | | | At | Signature | + + + + + + | DIAGNOSIS: | Sinus tachycardia with | | EXTERNAL | | | | Premature atrial | | LAB | | | | complexesNonspecific T | | | | | | wave abnormalityAbnormal | | | | | | ECGWhen compared with | | | | | | ECG of 08-JUL-2013 | | | | | | 14:39,Premature atrial | | | | | | complexes are now | | | | | | PresentVent. rate has | | | | | | increased BY 38 | | | | | | BPMNonspecific [...] (500), | | | | | | commercial production editor Keyla Gregory | | | | | | (25) on 08/23/2013 | | | | | | 3:22:56 AM | | | | + + + + + + + + | Specimen | + + | | + + + + + | Narrative | Performed At | + + + | Historically converted procedure from [facility] environment | EXTERNAL [...]
--- OUTSIDE RECORDS SUMMARY | ~2019-09-09 | XMS | Encounter Summary ---
Demographics + + + | Address | [address] | | | [place] [address] | + + + | Home Phone [...] | Sammi Kohler | ECON | [place] [address] | | + + + + + Care Team Providers + +------+ + | Care Material Stockkeeper Yard Name | Role | Phone | + +------+ + | Mireya Pack NP | PCP | | + +------+ + Encounter Details +--------+ + + + + | Date | Type | Department | Care Team | Description | +--------+ + + + + | 06/17/ | Telephone | [facility] | Sanjuanita Rodriguez RN | | | 2019 | | ATG ARCHITECT | | | | | | MANA[address] | | | | [address] | | | | | | [place] | | | | | | [address] | | | | | | [phone] | | | +--------+ + + + [...] encounter Miscellaneous Notes Telephone Encounter - Joy Connor Bmet - 07/04/2019 11:56 AM PDTHalima Rider as phone number was not working, no BP cuff in stock. Will keep trying. elephone Josesito r - Joy Connor Bmet - 06/25[facility]2019 12[facility] Unsure of accuracy. Did reading with this digital monitor and had MA do arm cuff read , two very different readings. Will return and keep looking. Patient called in to PCP's office on 06/20/19, BP was 144/66 elephone Encounter - Yu Connor, Bmet - 06/20/2019 11:28 AM [facility]TW[facility] no [facility] available, state they do get them in, to check again. [facility] to follow up next week. Contacted patient and advised, he states that his physical therapist came today and his BP was 146/77. elephone Encounter - Joy Connor Medical Assistant - 06/18/2019 2:42 PM PDT Contacted patient. Has not been monitoring his blood pressure because he does not have a blood pressure cuff a t home. Patient states he does not have transportation to follow up with [facility]. Edwina mendoza would contact [facility] to see if BP cuff available. elephone Encounter - Sanjuanita Rodriguez RN - 01/2020 7:40 AM PDTChart review completed and sent to [facility] staff pool for follow up on 06.18.2019. Patient has been having elevated blood pressures. Please follow up with patient for his blood pressure readings for the last 3 days. If reading have been > 160 mm hg systolic pressure, please ask if he has taken his extra dose of Hydralazine as instructed. Any questions or concerns Final call if all is going well. documented in this encounter Plan of Treatment +--------+---------+ + + + | Date | Type | Specialty | Care Team | Description | +--------+---------+ + + + | 09/10/ | Office | Geriatric Medicine | Mireya Pack, | | | 2019 | Visit | | GUI DEVELOPER [address] | | | | | | [address] [place], | | | | | | [place] [address] | | | | | | [phone] | | | | | | | | +--------+---------+ + + + | 09/29/ | Office | Urology | Mireya Pack, | | | 2019 | Visit | | GUI DEVELOPER [address] | | | | | | [address] [place], | | | | | | [place] [address] | | | | | | [phone] | | | | | | | | | | | | Toy Wild, DO | | | | | | [address] | | | | | | [place] [address] | | | | | | [phone] | | | | | | | [...]
--- OUTSIDE RECORDS SUMMARY | ~2019-09-09 | XMS | Encounter Summary ---
Demographics + + + | Address | [address] | | | [place] [address] | + + + | Home Phone [...] Sammi Kohler | ECON | [place] [address] | | + + + + + Care Team Providers + +------+ + | Care Fire Control Mechanic Name | Role | Phone | + +------+ + | Mik Diego DO | PCP | | + +------+ + Encounter Details +--------+ + + + + | Date | Type | Department | Care Team | Description | +--------+ + + + + | 10/18/ | Skilled | [facility] | Mireya Pack, | Impaired mobility | | 2019 | Nursing | [facility] [address] | CORPORATE COMMUNICATIONS SPECIALIST [address] | and ADLs (Primary | | | Facility | [address] | [address] [place], | Dx); Type 2 diabetes | | | | [place], [place] | [place] [address] | mellitus with | | | | [address] | [phone] | hyperglycemia, with | | | | [phone] | | long-term current | | | | | | use of insulin | | | | | | ([facility]); Paroxysmal | | | | | | atrial fibrillation | | | | | | ([facility]); WARD | | | | | | [...] is a 62 y.o. male Resident of [facility] [place] 2] with a qualifying stay at [facility] from 10/11/18-10/16/18. Kevyn watson is a 62 [...] should. Patient was ruled out from having TN on serial cardiac enz ymes, blood pressures and blood sugars were better controlled, OT and PT saw the patient rec ommended SNF and the patient was subsequently discharged to [facility]. Discharged to [facility] for PT/OT, medication management and correction. Past Medical History: Diagnosis Date Acute pulmonary embolism (HCC) 10/14/2017 Anxiety ARF (acute renal failure) ([facility]) 03/02/2013 Atrial fibrillation (HCC) Basal cell carcinoma 09/26/2012 arm and back COPD (chronic obstructive pulmonary disease) ([facility]) 03/02/2013 hypoxemia on 2 lts nc Depression Development delay Diabetes mellitus type II DVT (deep venous thrombosis) ([facility]) 03/29/2018 Facial droop 07/08/2013 GIB (gastrointestinal [...] [facility]; Service: General; Laterality: N/A; COLONOSCOPY COLONOSCOPY 03/04/2013 Procedure: COLONOSCOPY; Surgeon: Howie Gibson MD; Location: [facility] ENDOSCOPY; Service: Gastroen terology; Laterality: N/A; HERNIA [...] FROZEN SECTION; Surgeon: Sy murcia MD; Location: [facility] MAIN OR; Service: Plastics; Laterality: Left; forearm SKIN BIOPSY SKIN CANCER EXCISION Left 10/10/2012 Procedure: EXCISION - SKIN CANCER; Surgeon: Sy Fierro MD; Location: [facility] MAIN OR; Service: Plastics; Laterality: Left; upper arm and upper back w/frozen section UPPER GASTROINTESTINAL ENDOSCOPY UPPER GASTROINTESTINAL ENDOSCOPY 03/03/2013 Procedure: ESOPHAGOGASTRODUODENOSCOPY; Surgeon: Howie Gibson MD; Location: [facility] ENDOSCOPY; Se rvice: Gastroenterology; Laterality: N/A; Social [...] is feeling well, motivated to work with [employer] Patient's medications, allergies, past medical, surgical, social [...] 11.0 (H) 10/14/2018 No components found for: [id number], PTHINT No results found for: [id number] No results found for: TSH, T4 No [...] | 2019 | Visit | | CORPORATE COMMUNICATIONS SPECIALIST [address] | | | | | | [address] [place], | | | | | | [place] [address] | | | | | | [phone] | | | | | | | | +--------+---------+ + + + | 09/29/ | Office | Urology | Mireya Pack, | | | 2019 | Visit | | CORPORATE COMMUNICATIONS SPECIALIST [address] | | | | | | [address] [place], | | | | | | [place] [address] | | | | | | [phone] | | | | | | | | | | | | Toy Wild, DO | | | | | | [address] | | | | | | [place] [address] | | | | | | [phone] | | | | | | | [...]
--- OUTSIDE RECORDS SUMMARY | ~2019-09-09 | XMS | Encounter Summary ---
Demographics + + + | Address | [address] | | | [place] [address] | + + + | Home Phone [...] Sammi Kohler | ECON | [place] [address] | | + + + + + Care Team Providers + +------+ + | Care Theatre Program Director Name | Role | Phone [...] Medication Refill | | 2019 | | [facility] [address] | Etl Analyst | | | | | [address] | | | | | | [place] | | | | | | [address] | | | | | | [phone] | | | +--------+--------+ + + + [...] Miscellaneous Notes Telephone Encounter - Mel Morton Etl Analyst - 05/23/2019 4:36 PM PDTRefill request received from [facility].Electronically signed by Mel Morton Etl Analyst darcy benton 05/23/2019 4:36 PM PDTdocumented in this encounter Plan of Treatment +--------+---------+ + + + | Date | Type | Specialty | Care Team | Description | +--------+---------+ + + + | 09/10/ | Office | Geriatric Medicine | Mireya Pcak, | | | 2019 | Visit | | SENIOR BUSINESS CONSULTANT [address] | | | | | | [address] [facility] | | | | | | [place] [address] | | | | | | [phone] | | | | | | | | +--------+---------+ + + + | 09/29/ | Office | Urology | Mireya Pack, | | 2019 | Visit | | SENIOR BUSINESS CONSULTANT [address] | | | | | | [address] [facility] | | | | | | [place] [address] | | | | | | [phone] | | | | | | | | | | | | Toy Wild, | | | | | | [address] | | | | | | [place] [address] | | | | | | [phone] | | | | | | | | +--------+---------+ + + + documented as of this encounter Visit Diagnoses Not on filedocumented in this encounter"
--- OUTSIDE RECORDS SUMMARY | ~2019-09-09 | XMS | Encounter Summary ---
Demographics + + + | Address | [address] | | | [place] [address] | + + + | Home Phone [...] + | Sammi Kohler | ECON | [place] [address] | | + + + + + Care Team Providers + +------+ + | Care Poultry Processing Supervisor Name | Role | Phone | + +------+ + PCP | Unavailable | + +------+ + Encounter Details +--------+ + + + + | Date | Type | Department | Care Team | Description | +--------+ + + + + | 03/22/ | Emergency | [facility] | Marcos Nugent, | Abdominal pain of | | 2014 | | [facility] | [address] | unknown etiology | | | | EMERGENCY CENTER | [place] [address] | | | | | [address] | [phone] | | | | | [place], [place] | | | | | | [address] | | | | | | [phone] | | | +--------+ + + + [...] Author: QUINN White Service: (none) Author Type: Report Analyst Filed: 03/22/131921 Date of Service: 03/22/131921 Status: Signed Train Operator: QUINN White (Report Analyst) COLTON alert Rcvd pt with a total of 19 ED visits, pt has pcp - and ins, MDCR / DSHS - referr al to [facility] docume nted in this encounter ED Notes Conversion Transaction, Provider Unknown - 03/22/2013 9:58 PM PSTFormatting of this note m ight be different from the original. ED Notes by Jv Liriano RN at 03/22/132157 Author: vJ Liriano RN Service: (none) Author Type: Registered Nurse Filed: 03/22/132158 Date of Service: 03/22/132157 Status: Signed Train Operator: Jv Liriano RN (Registered Nurse) Report called to [facility] and notified of pt return. Notified that pt will be returning via cab. Jv Liriano RN 03/22/132158 rabtr jaren, Marcos Preston MD - 03/22/2013 7:50 PM PST ED Provider Notes by Marcos Nugent MD at 03/22/131949 Author: Marcos Nugent MD Service: (none) Author Type: Physician Filed: 03/23/13 0133 Date of Service: 03/22/131949 Status: Signed Train Operator: Marcos Nugent MD (Physician) [facility] Department of Emergency Medicine 03/22/2013 History of [...] HTN, hyperlipidemia, anxiety, depression, renal failure, GIB, RN TEAM LEADER D PCP: TAINA WASHBURN Past Medical History [...] - CHOLECYSTECTOMY; Surgeon: Jevon Vargas DO; Location: [facility]; Service: General; Laterality: N/A; Abdominal surgery Cholecystectomy Skin cancer excision 10/10/2012 Procedure: EXCISION - SKIN CANCER; Surgeon: Sy Fierro MD; Location: [facility] ; Service: Plastics; Laterality: Left; upper arm and upper back w/frozen section Esophagogastroduodenoscopy 03/03/2013 Procedure: ESOPHAGOGASTRODUODENOSCOPY; Surgeon: Howie Gibson MD; Location: [facility]; S ervice: Gastroenterology; Laterality: N/A; Colonoscopy 03/04/2013 Procedure: COLONOSCOPY; Surgeon: Howie Gibson MD; Location: [facility]; Service: Gastroe nterology; Laterality: N/A; Prior [...] feeling better at this time. The pt ates that he has an appointment with PCP in one week. Advised to keep this appointment. I d iscussed all ED results and my clinical impression with the patient. Patient is ready for di scharpiyl. I advised patient as to the time frame for follow up, and we discussed the emergent signs and symptoms that would necessitate a return to ED. All questions and concerns addres sed. Records Reviewed Old medical records. Nursing notes. (Using the electronic record system of [facility]) Laboratory Evaluation Results Procedure Component Value Ref Range Date/Time Comprehensive metabolic panel [[id number]] (Abnormal) Collected:03/22/131844 Order Status:Completed Updated:03/22/131916 Specimen Information:Blood [...] U/L EGFR 52 (L) >60 mL/min/1.73m2 Lipase [[id number]] Collected:03/22/131844 Order Status:Completed Updated:03/22/131916 Specimen Information:Blood LIPASE 166 73 - 393 U/L CBC with differential [[id number]] (Abnormal) Collected:03/22/13 1845 Order Status:Completed Updated:03/22/13 185 Specimen Information:Blood WBC 9.8 3.8 - 11.0 [...] normal. This is unchanged from Abdirahman [place] 2013. No definite evidence of appendicitis. 4. The [...] CITLALY Kent In 3 days [address] [facility] [address] [facility] Emergency Department If symptoms worsen [address] [facility] [address] Discharge Medications: New Prescriptions No new medications This document has been prepared with a voice recognition system. The possibility of "sound alike" medical transcription errors, and additions or deletions may occur. [...] | | 2019 | Visit | | COLLECTION ADMINISTRATOR [address] | | | | | | [address] [place], | | | | | | [place] [address] | | | | | | [phone] | | | | | | | | +--------+---------+ + + + | 09/29/ | Office | Urology | Mireya Pack, | | | 2019 | Visit | | COLLECTION ADMINISTRATOR [address] | | | | | | [address] [place], | | | | | | [place] [address] | | | | | | [phone] | | | | | | | | | | | | Toy Wild, | | | | | | [address] | | | | | | [place] [address] | | | | | | [phone] | | | | | | | [...] - 09/21/2018 3:31 PM PDT NORAH GRCT PELVIS APPY WO | | CONTRAST03/22/2013 8:36 [...] (500), | | | | | | index editor Keyla Gregory | | | | | | (25) on 03/23/2013 | | | | | | 12:58:47 AM | | | | + + + + + + + + | Specimen | + + | | + + + + + | Narrative | Performed At | + + + | Historically converted procedure from [facility] Epic environment | EXTERNAL [...] | LAB | | | | [address];[place] | | | | | | [address] | | | | + + + + + + | Non- | 4.84Comment: Testing | 4.20 - 5.70 | EXTERNAL | | | Red Blood | performed at [facility];[address] | M/uL | LAB | | | Cells | [address];[place] | | | | | Counted | [address] | | | | + + + + + + | Hemoglobin | 13.3Comment: Testing | 13.2 - 17.0 | EXTERNAL | | | | performed at [facility];888 | g/dL | LAB | | | | [address];[place] | | | | | | [address] | | | | + + + + + + | Hematocrit, | 40.0Comment: Testing | 39.0 - 50.0 % | EXTERNAL | | | POC | performed at [facility];[address] | | LAB | | | | [address];[place] | | | | | | [address] | | | | + + + + + + | MCV | 82.7Comment: Testing | 80.0 - 100.0 fl | EXTERNAL | | | | performed at [facility];[address] | | LAB | | | | [address];[place] | | | | | | [address] | | | | + + + + + + | MCH | 27.4Comment: Testing | 27.0 - 34.0 pg | EXTERNAL | | | | performed at [facility];[address] | | LAB | | | | [address];[place] | | | | | | [address] | | | | + + + + + + | MCHC | 33.2Comment: Testing | 32.0 - 35.5 | EXTERNAL | | | | performed at [facility];888 | g/dL | LAB | | | | [address];[place] | | | | | | [address] | | | | + + + + + + | RDW-CV | 42.9Comment: Testing | 37 - 53 fl | EXTERNAL | | | | performed at [facility];[address] | | LAB | | | | [address];[place] | | | | | | [address] | | | | + + + + + + | Platelet | 304Comment: Testing | 150 - 400 K/uL | EXTERNAL | | | Count | performed at [facility];[address] | | LAB | | | Plasma | [address];[place] | | | | | | [address] | | | | + + + + + + | MPV | 7.3Comment: Testing | fl | EXTERNAL | | | | performed at [facility];[address] | | LAB | | | | [address];[place] | | | | | | [address] | | | | + + + + + + | Differentia | AUTOMATEDComment: | | EXTERNAL | | | l Type | Testing performed at | | LAB | | | | [facility];[address] | | [address];[place] [address] | | | | + + + + + + | % Segmented | 56.5Comment: Testing | % | EXTERNAL | | | | performed at [facility];[address] | | LAB | | | Neutrophils | [address];[place] | | | | | | [address] | | | | + + + + + + | % | 30.2Comment: Testing | % | EXTERNAL | | | Lymphocytes | performed at [facility];[address] | | LAB | | | | [address];[place] | | | | | | [address] | | | | + + + + + + | % Monocytes | 9.1Comment: Testing | % | EXTERNAL | | | | performed at [facility];[address] | | LAB | | | | [address];[place] | | | | | | [address] | | | | + + + + + + | % | 3.5Comment: Testing | % | EXTERNAL | | | Eosinophils | performed at [facility];[address] | | LAB | | | | [address];[place] | | | | | | [address] | | | | + + + + + + | % Basophils | 0.7Comment: Testing | % | EXTERNAL | | | | performed at [facility];[address] | | LAB | | | | [address];[place] | | | | | | [address] | | | | + + + + + + | Absolute | 5.6Comment: Testing | 1.9 - 7.4 K/uL | EXTERNAL | | | Segmented | performed at [facility];[address] | | LAB | | | Neutrophils | [address];[place] | | | | | | [address] | | | | + + + + + + | Absolute | 3.0Comment: Testing | 1.0 - 3.9 K/uL | EXTERNAL | | | Lymphocytes | performed at [facility];[address] | | LAB | | | | [address];[place] | | | | | | [address] | | | | + + + + + + | Absolute | 0.9 (H)Comment: Testing | 0 - 0.8 K/uL | EXTERNAL | | | Monocytes | performed at [facility];[address] | | LAB | | | | [address];[place] | | | | | | [address] | | | | + + + + + + | Absolute | 0.3Comment: Testing | 0 - 0.5 K/uL | EXTERNAL | | | Eosinophils | performed at [facility];[address] | | LAB | | | | [address];[place] | | | | | | [address] | | | | + + + + + + | Absolute | 0.1Comment: Testing | 0 - 0.1 K/uL | EXTERNAL | | | Basophils | performed at [facility];[address] | | LAB | | | | [address];[place] | | | | | | [address] | | | | + + + [...] LAB | | | | [address];[place] | | | | | | [address] | | | | + + + [...] [place] | | | | | | [address] | | | | + + + + + + | K | 4.0Comment: Testing | 3.5 - 4.9 | EXTERNAL | | | | performed at [facility];888 | mmol/L | LAB | | | | [address];[place] | | | | | | [address] | | | | + + + + + + | Cl | 101Comment: Testing | 99 - 109 mmol/L | EXTERNAL | | | | performed at [facility];[address] | | LAB | | | | [address];[place] | | | | | | [address] | | | | + + + + + + | CO2 | 34 (H)Comment: Testing | 23 - 32 mmol/L | EXTERNAL | | | | performed at [facility];[address] | | LAB | | | | [address];[place] | | | | | | [address] | | | | + + + + + + | Anion Gap | 8Comment: Testing | 5 - 20 mmol/L | EXTERNAL | | | | performed at [facility];[address] | | LAB | | | | [address];[place] | | | | | | [address] | | | | + + + + + + | Glucose, | 238 (H)Comment: Testing | 65 - 99 mg/dL | EXTERNAL | | | Fasting | performed at [facility];[address] | | LAB | | | | [address];[place] | | | | | | [address] | | | | + + + + + + | BUN | 18Comment: Testing | 8 - 25 mg/dL | EXTERNAL | | | | performed at [facility];[address] | | LAB | | | | [address];[place] | | | | | | [address] | | | | + + + + + + | Creatinine | 1.48 (H)Comment: Testing | 0.70 - 1.30 | EXTERNAL | | | | performed at [facility];[address] | mg/dL | LAB | | | | [address];[place] | | | | | | [address] | | | | + + + + + + | BUN/Creatin | 12Comment: Testing | | EXTERNAL | | | ine Ratio | performed at [facility];[address] | | LAB | | | | [address];[place] | | | | | | [address] | | | | + + + + + + | Calcium | 9.2Comment: Testing | 8.5 - 10.2 | EXTERNAL | | | | performed at [facility];888 | mg/dL | LAB | | | | [address];[place] | | | | | | [address] | | | | + + + + + + | Protein, | 7.4Comment: Testing | 6.3 - 8.2 g/dL | EXTERNAL | | | Total | performed at [facility];[address] | | LAB | | | | [address];[place] | | | | | | [address] | | | | + + + + + + | Albumin | 3.5 (L)Comment: Testing | 3.6 - 5.0 g/dL | EXTERNAL | | | | performed at [facility];[address] | | LAB | | | | [address];[place] | | | | | | [address] | | | | + + + + + + | Globulin | 3.9Comment: Testing | 1.3 - 4.9 g/dL | EXTERNAL | | | | performed at [facility];[address] | | LAB | | | | [address];[place] | | | | | | [address] | | | | + + + + + + | A/G Ratio | 0.9 (L)Comment: Testing | 1.0 - 2.4 | EXTERNAL | | | | performed at [facility];[address] | | LAB | | | | [address];[place] | | | | | | [address] | | | | + + + + + + | Bilirubin | 0.3Comment: Testing | 0.1 - 1.5 mg/dL | EXTERNAL | | | Total | performed at [facility];[address] | | LAB | | | | [address];[place] | | | | | | [address] | | | | + + + + + + | ALP, | 107Comment: Testing | 35 - 115 U/L | EXTERNAL | | | External | performed at [facility];[address] | | LAB | | | | [address];[place] | | | | | | [address] | | | | + + + + + + | AST | 24Comment: Testing | 10 - 45 U/L | EXTERNAL | | | | performed at [facility];[address] | | LAB | | | | [address] | | | | | | [address] | | | | + + + + + + | ALT | 29Comment: Testing | 10 - 65 U/L | EXTERNAL | | | | performed at [facility];[address] | | LAB | | | | [address];[place] | | | | | | [address] | | | | + + + [...] | | at [facility];[address] [facility] | | | | | | [address];[place] [address] | | | | + + + [...]
--- OUTSIDE RECORDS SUMMARY | ~2019-09-09 | XMS | Encounter Summary ---
Demographics + + + | Address | [address] | | | [place] [address] | + + + | Home Phone | | + + + | Preferred Language | Unknown | + + + | Marital Status | | + + + | Adventist Affiliation | [id number] | + + + | Race | Unknown | + + + | Ethnic Group | Unknown | + + + Author + + + | Author | [facility] | | | and [place] | + + + | Organization | [facility] | | | and [place] | + + + | Address | Unknown | + + + | Phone | Unavailable | + + + Support + + + + + | Name | Relationship | Address | Phone | + + + + + | Sammi Kohler | ECON | [place] [address] | | + + + + + Care Team Providers + +------+ + | Care Pharmaceutical Engineer Name | Role | Phone | [...] | | | | | [address] | [place], | | | | | | [place], [place] | [place] [address] | | | | | | [address] | Phone: | | | | | | Phone: | [phone] | | | | | | [phone] | Fax: | | | | | | Fax: | [phone] | | | | | | [phone] | | +--------+ + + + + [...] in ) | | 2019 | | [facility] [address] | [address] | | | | | [address] | | | | | | [facility] [place] | | | | | | [address] | | | | | | [phone] | | | +--------+ + + + [...] then demanded for staff to set up [facility] apt for tomorrow for this and he [...] take it slow and not bush. [place] echlose assisted with putting his jacket back on, placed cane in hand and walked with him outsid e. tennis desk team member staff assisted with contacting LEONEL for the [...] hours as ordered. Routed to PCP as MARY. elephone Encounter - Mireya Pack NP - [...] | | 2019 | Visit | | COMPOSITE BOAT BUILDER [address] | | | | | | [address] [place], | | | | | | [place] [address] | | | | | | [phone] | | | | | | | | +--------+---------+ + + + | 09/29/ | Office | Urology | Mireya Pack, | | | 2019 | Visit | | COMPOSITE BOAT BUILDER [address] | | | | | | [address] [place], | | | | | | [place] [address] | | | | | | [phone] | | | | | | | | | | | | Toy Wild, DO | | | | | | [address] | | | | | | [place] [address] | | | | | | [phone] | | | | | | | [...]
--- OUTSIDE RECORDS SUMMARY | ~2019-09-09 | XMS | Encounter Summary ---
Demographics + + + | Address | [address] | | | [place] [address] | + + + | Home Phone [...] Sammi Kohler | ECON | [place] [address] | | + + + + + Care Team Providers + +------+ + | Care Chiropractic Neurologist Name | Role | Phone | + +------+ + | Mik Diego DO | PCP | | + +------+ + Encounter Details +--------+ + + + + | Date | Type | Department | Care Team | Description | +--------+ + + + + | 10/19/ | Skilled | [facility] | Reinaldo Sanchez | Uncontrolled | | 2019 | Nursing | [facility] | MD Xander [address] | hypertension | | | Facility | [facility] [address] [address] | (Primary Dx); Other | | | | [address] | [place] [address] | pulmonary embolism | | | | [place], [place] | [phone] | without acute cor | | | | [address] | | pulmonale, | | | | [phone] | | unspecified | | | | | | chronicity (HCC); | | | | | | Type 2 diabetes | | | | | | mellitus with | | | | | | hyperglycemia, with | | | | | | long-term current | | | | | | use of insulin | | | | | | (HCC); Acute kidney | | | | | | injury (HCC); Other | | | | | | chest pain; | | | | | | Paroxysmal atrial | | | | | | fibrillation (HCC); | | | | | | Obesity, unspecified | | | | | | classification, | | | | | | unspecified obesity | | | | | | type, unspecified | | | | | | whether serious | | | | | | comorbidity present | +--------+ + + + + Social [...] + + + | Blood Pressure | 140/74 | 10/19/2018 12:41 PM | | | | | PDT | | + + + + + | Pulse | 69 | 10/19/2018 12:41 PM | | | | | PDT | | + + + + + | Temperature | 36.8 C (98.2 F) | 10/19/2018 12:41 PM | | | | | PDT | | + + + + + | Respiratory Rate | 22 | 10/19/2018 12:41 PM | | | | | PDT | | + + + + + | Oxygen Saturation | 97% | 10/19/2018 12:41 PM | | | | | PDT | | + + + + + | Inhaled Oxygen | - | - | | | Concentration | | | | + + + + + | Weight | 99.3 kg (219 lb) | 10/19/2018 12:41 PM | | | | | PDT | | + + + + + | Height | 180.3 cm (5' 11") | 10/19/2018 12:41 PM | | | | | PDT | | + + + + + | Body Mass Index | 30.54 | 10/19/2018 12:41 PM | | | | | PDT [...] encounter Progress Notes Reinaldo Sanchez MD - 10/19/2018 3:00 PM PDTFormatting of this note might be differen t from the original. Subjective: Patient ID: Kevyn Guzman is a 62 y.o. male. HPI Resident of [facility] with a qualifying stay at [facility] from 10/11/18-10/16/18. Kevyn Andrea Yana he a62 y.o.malepast medical history of developmental [...] he should.Patient was ruled out from having ME on serial car diac enzymes, blood pressures and blood sugars were better controlled, OT and PT saw the [facility] ient recommended SNF and the patient was subsequently discharged to [facility]. Discharg ed to SNF for PT/OT, medication management and nursing home. History:ASSESSMENT AND PLAN: 1. The patient was interviewed [...] the way it sounds at night. 5. Uncontrolled hypertension secondary to medical noncompliance. Blood pressure is curren tly stable and under good control. 6. Hyperglycemia secondary to medical noncompliance. Blood sugars are currently under goo d control. Most recently 153 with no notable hyperglycemia or hypoglycemia. 7. History of acute renal failure, was likely largely situational/prerenal. Electrolytes currently normal. BUN and creatinine are normal. 8. Hypoalbuminemia, likely nutritional. Should improve with better nutrition. 9. Traumatic hypertriglyceridemia, 498. Clearly, would benefit from diet, exercise, weigh [...] and better cont rol of the diabetes. Past Medical History: Diagnosis Date Acute pulmonary [...] of GE junction Hypercholesterolemia 07/08/2013 Hyperlipidemia Hypertension senior living (current) use of 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 Obesity, Class I, BMI 30-34.9 07/08/2013 WARD (obstructive sleep apnea) 08/11/2012 does not use CPAP because of the noise Other chronic pain Renal failure Stroke (HCC) TIA (transient ischemic attack) Unspecified visual disturbance reading glasses Past Surgical History: Procedure Laterality Date ABDOMEN SURGERY CHOLECYSTECTOMY CHOLECYSTECTOMY, LAPAROSCOPIC 09/12/2012 Procedure: LAPAROSCOPIC - CHOLECYSTECTOMY; Surgeon: Jevon Vargas DO; Location: [facility] MAIN OR; Service: General; Laterality: N/A; COLONOSCOPY COLONOSCOPY 03/04/2013 Procedure: COLONOSCOPY; Surgeon: Howie Gibson MD; Location: [facility] ENDOSCOPY; Service: Gastroen terology; Laterality: N/A; HERNIA REPAIR 07/03/2013 Procedure: LAPAROSCOPIC - HERNIA - INCISIONAL; Surgeon: Jevon Vargas DO; Location: [facility] MAIN OR; Service: General; Laterality: N/A; KNEE SURGERY rt knee, patella LEG SURGERY LLE OTHER SURGICAL HISTORY UNLISTED PROCEDURE ARTHROSCOPY OTHER SURGICAL HISTORY Left 05/05/2014 SKIN LESION EXCISION - Procedure: EXCISION - LESION - FROZEN SECTION; Surgeon: Sy murcia MD; Location: [facility] MAIN OR; Service: Plastics; Laterality: Left; forearm SKIN BIOPSY SKIN CANCER EXCISION Left 10/10/2012 Procedure: EXCISION - SKIN CANCER; Surgeon: Sy Fierro MD; Location: [facility] MAIN OR; Service: Plastics; Laterality: Left; upper arm and upper back w/frozen section UPPER GASTROINTESTINAL ENDOSCOPY UPPER GASTROINTESTINAL ENDOSCOPY 03/03/2013 Procedure: ESOPHAGOGASTRODUODENOSCOPY; Surgeon: Howie Gibson MD; Location: [facility] ENDOSCOPY; Se rvice: Gastroenterology; Laterality: N/A; [...] Review of Systems Constitutional: Positive for activity change and appetite change. Negative for chills, fati jason, fever and unexpected weight change. Respiratory: Positive for shortness of breath. Negative for cough, chest tightness and whee zing. Cardiovascular: Negative for chest pain and leg swelling. Gastrointestinal: Negative for abdominal distention, abdominal pain, constipation and diarr hea. Genitourinary: Negative for difficulty urinating. Musculoskeletal: Negative for arthralgias, back pain and gait problem. Skin: Negative for rash and wound. Neurological: Positive for weakness. Psychiatric/Behavioral: Negative for dysphoric mood and sleep disturbance. The patient is n ot nervous/anxious. Objective: BP 140/74 | Pulse 69 | Temp 36.8 C (98.2 F) | Resp 22 | Ht 1.803 m (5' 11") | Wt 9 9.3 kg (219 lb) | SpO2 97% | BMI 30.54 kg/m Physical Exam Constitutional: He is oriented to person, place, and time. He appears well-developed and we ll-nourished. No distress. Obese debilitated HENT: Head: Normocephalic and atraumatic. Nose: Nose normal. Mouth/Throat: Oropharynx is clear and moist. No oropharyngeal exudate. Eyes: Conjunctivae are normal. Right eye exhibits no discharge. Left eye exhibits no discha rge. No scleral icterus. Neck: Normal range of motion. Neck supple. No JVD present. No tracheal deviation present. N o thyromegaly present. Cardiovascular: Normal rate, regular rhythm and intact distal pulses. Exam reveals no pina p and no friction rub. No murmur heard. Pulmonary/Chest: Effort normal and breath sounds normal. No stridor. No respiratory distres s. He has no wheezes. Abdominal: Soft. Bowel sounds are normal. There is no tenderness. No hernia. Musculoskeletal: Normal range of motion. He exhibits no edema or deformity. Lymphadenopathy: He has no cervical adenopathy. Neurological: He is alert and oriented to person, place, and time. No cranial nerve deficit or sensory deficit. Coordination normal. Skin: Skin is warm and dry. No rash noted. He is not diaphoretic. No erythema. No pallor. Psychiatric: He has a normal mood and affect. His behavior is normal. Assessment: Chemistry Component Value Date/Time NA 139 10/16/2018 035 K 3.7 10/16/2018357 CL 106 10/16/2018357 CO2 27 10/16/2018357 GLU 175 (H) 10/16/2018357 GLU 337 (A) 10/12/2018 0823 BUN 19 10/16/2018357 ANIONGAP 10 10/16/2018357 Component Value Date/Time CALCIUM 8.3 (L) 10/16/2018357 ALKPHOS 125 (H) 10/12/2018 0327 AST 22 10/12/2018 0327 ALT 25 10/12/2018 0327 ALBUMIN 2.9 (L) 10/12/2018 0327 BILITOT 0.5 09/21/2018 1810 Lab Results Component Value Date EGFR >60 10/16/2018 GLUF 292 (H) 09/21/2018 GLOB 2.7 09/21/2018 Lab Results Component Value Date WBC 11.12 (H) 10/16/2018 HGB 15.3 10/16/2018 HCT 44.5 10/16/2018 MCV 83.9 10/16/2018 PLT 218 10/16/2018 No results found for: [id number] No results found for: FOLATE No results [...] (H) 06/17/2016 No results found for: CHOLHDL No components found for: [id number], PTHINT No results found for: DIGOXIN No results found for: URICACID Plan: documented in th is encounter Plan of Treatment +--------+---------+ + + + | Date | Type | Specialty | Care Team | Description | +--------+---------+ + + + | 09/10/ | Office | Geriatric Medicine | Mireya Pack, | | | 2019 | Visit | | CHIEF REVENUE OFFICER [address] | | | | | | [address] [place], | | | | | | [place] [address] | | | | | | [phone] | | | | | | | | +--------+---------+ + + + | 09/29/ | Office | Urology | Mireya Pack, | | | 2019 | Visit | | CHIEF REVENUE OFFICER [address] | | | | | | [address] [place], | | | | | | [place] [address] | | | | | | [phone] | | | | | | | | | | | | Toy Wild, DO | | | | | | [address] | | | | | | [place] [address] | | | | | | [phone] | | | | | | | | +--------+---------+ + + + documented as of this encounter Visit Diagnoses + + | Diagnosis | + + | Uncontrolled hypertension - Primary Unspecified essential hypertension | + + | Other pulmonary embolism without acute cor pulmonale, unspecified chronicity (HCC) | + + | Type 2 diabetes mellitus with hyperglycemia, with long-term current use of insulin | | (HCC) | + + | Acute kidney injury (HCC) Acute kidney failure, unspecified | + + | Other chest pain | + + | Paroxysmal atrial fibrillation (HCC) Atrial fibrillation | + + | Obesity, unspecified classification, unspecified obesity type, unspecified whether | | serious comorbidity present | + + documented in this encounter
--- OUTSIDE RECORDS SUMMARY | ~2019-09-09 | XMS | Encounter Summary ---
Demographics + + + | Address | [address] | | | [place] [address] | + + + | Home Phone [...] Sammi Kohler | ECON | [place] [address] | | + + + + + Care Team Providers + +------+ + | Care Concession Stand Attendant Name | Role | Phone | + +------+ + PCP | Unavailable | + +------+ + Encounter Details +--------+ + + + + | Date | Type | Department | Care Team | Description | +--------+ + + + + | 01/27/ | Emergency | [facility] | Ramirez, Bimal S, | Insulin reaction due | | 2013 | | [facility] | [address] | to improper use of | | | | EMER[facility]ENCY CENTER | [facility], [place] | drug, initial | | | | [address] | [address] | encounter; | | | | [place], [place] | | Hypertension; | | | | [address] | | Anxiety | | | | [phone] | | | +--------+ + + + [...] ED Notes Conversion Transaction, Provider Unknown - 01/27/2014 3:07 AM PSTFormatting of this note m ight be different from the original. ED Notes by Doris Moya at 01/27/14306 Author: Doris Moya Service: (none) Author Type: Supervisor Fabrication Filed: 01/27/14307 Date of Service: 01/27/14306 Status: Signed Karate Instructor: Doris Moay (Supervisor Fabrication) KAITLYNN/Vianey Contacted. ETA 0320 Doris Moya 01/27/14307 Bimal Cheung MD - 01/27/2014 2:56 AM PST ED Provider Notes by Bimal Ramirez DO at 01/27/14255 Author: Bimal Ramirez DO Service: (none) Author Type: Physician Filed: 01/28/14 0012 Date of Service: 01/27/14255 Status: Signed Karate Instructor: Bimal Ramirez DO (Physician) [facility] Department of Emergency Medicine 2:56 AM 01/27/2014 History of Present Illness Patient Identification Kevyn Guzman is a 58 y.o. male. Patient information was obtained from patient. History/Exam limitations: none. Patient presented to the Emergency Department by: Juliana Tracey 1723 (PCP: JERRELL GUTIÉRREZ.) Chief Complaint Chief Complaint Patient presents with Blood Sugar Problem pt was given Lantus instead of Novalog, glucose METALLURGICAL LAB TECHNICIAN 135 The patient presents with anxiety. Patient reports that he was given 54 units of Novolog i nstead of Lantus at 2100. Patient became anxious that his blood sugar would be too low. Justino prabhakar's care facility monitored his blood sugar and fed the patient. Blood sugar was measur ed at 85 at 0000. EMS was called at that time. EMS reported a blood sugar of 135 en route to ED. Patient complains of abdominal pain. Patient denies chest pain, dyspnea, dizziness, nausea, and vomiting. Patient has a longstanding history of diabetes mellitus, insulin controlled. Patient has be en seen numerous times in ED for similar and unrelated complaints. Past Medical History Diagnosis Date Diabetes mellitus [...] [facility]; Service: General; Laterality: N/A; Prior to Admission medications Medication Sig Start Date End Date Taking? Authorizing Provider Albuterol Sulfate (VENTOLIN HFA IN) Inhale 2 puffs into the lungs as needed. 108 mcg/act Historical Provider Awlye-M-Fwwvxmyzolrfb (BEANO) TABS Take 150 Units by mouth [...] 100 mg by mouth nightly. Historical Provider hkpfcfjwv-kabbdgvk-pcfaawjrl hydroxide-simethicone Take 40 mLs by mouth daily [...] sore throat CV/Resp: Negative for chest pain, vgtoccpla-ky-vitzpx, cough GI: Positive for abdominal pain Negative for nausea, vomiting, diarrhea : Negative for urinary problems Musculoskeletal: Negative for back pain, joint pain Skin: Negative for rash Neuro/Psych: Negative for headache Endo/heme/Lymph: Negative for swollen lymph nodes, easy bruising All other systems reviewed and negative except as noted. Physical Exam BP 151/78 | Pulse 78 | Temp(Src) 97.7 F (36.5 C) (Oral) | Resp 20 | Ht 1.803 m (5' 11") | Wt 106.142 kg (234 lb) | BMI 32.65 kg/m2 | SpO2 95% Vitals Interpretation: Hypertensive, vitals otherwise normal. Pulse Oximetry interpretation: Normal General: Alert, no active distress and not requiring any emergent interventions. Eyes: Normal inspection, pupils equal and round, non-icteric sclera. ENT: Ears normal. Nose normal without discharge or drainage. Pharynx normal with no exud ates or discharge. Neck: Normal inspection with no lymphadenopathy. Supple. Full ROM. No carotid bruit wit h midline trachea. CVS: Normal rate and rhythm, no extra sounds. No murmurs rubs or gallops. Focal PMI. Respiratory: No respiratory distress or wheezing. Normal excursion. No retractions. Abdomen: Morbidly obese. Soft, non-tender. Normal active bowel sounds. Back: Normal inspection. Without tenderness or deformity. Skin: Color normal. Warm and dry. Extremities: BARNARD with equal pulses in the upper and lower extremities bilaterally. Neuro: No gross motor/sensory deficit. GCS 15. No cerebellar deficits. Alert and orient ed to person, place, time and situation. Medical Decision Making and Emergency Department Course ED Department Course 2:56 AM. Patient presents with a chief complaint of anxiety s/p wrong dose of insulin. The peak time of Novolog is 2-4 hours after administration, with a half life of 5-8 hours. The p atient is well outside the window of peak action, and almost to the end of the half life. If patient's repeat blood sugar is greater than 100 mg/dL, patient will be safe for discharge back to [facility]. Patient has no other complaints at this time. During hsi stay here, he rece ived 1 amp of D50. 3:24 AM he is more comfortable we gave him another dose of the D50 by vein before he goes h ome. He is comfortable going home he has some right-sided abdominal discomfort with no rebo und or guarding. And we will contact the facility to check his glucoses for the next severa l hours to make sure he is okay. Based on the kinetics are reviewed for regular insulin is my understanding that he should peak around 2-3 hours and this should with the duration of a ction of 5-8 hours. We are near the tail end of the duration of action for all of the units of insulin that were provided to him. He will return immediately if he has any new concern s and we will communicate effectively with the care facility to ensure is to continue to mon itor his glucose. I will contact EMS should they have any additional questions or concerns but it seems reasonable that he is at the end of the duration of action of the insulin. He did not want the IV left in just in case he wanted removed here. He was okay with a GI cocktail before you discharge and he was also okay with the D50 just in case. He reported t hat it is okay because he will have breakfast at 7:00. I explained the probability month to make sure the check his sugars to make sure he is continuing to do well before 7:00. I have answered any questions that the patient has to the best of my ability. Based upon the patient s history, physical exam, emergency department course, and any laboratory and diagnostic studies which may have been performed, I feel that there is no current emergent medical condition that warrants admission, transfer, or further emergency department treatme nt at this time. ED Medication Administration from 01/27/2014 0049 to 01/27/2014 0309 Date/Time Order Dose Route Action Action by 01/27/2014 0115 dextrose 50 % solution 25 g 25 g Intravenous Given Renetta Goode RN Filed Vitals: 01/27/14 0050 01/27/14 0138 01/27/14 0231 01/27/14 0322 BP: 153/69 131/66 151/78 148/79 Pulse: 82 78 78 74 Temp: 97.7 F (36.5 C) TempSrc: Oral Resp: 20 18 20 18 Height: 1.803 m (5' 11") Weight: 106.142 kg (234 lb) SpO2: 95% 93% 95% 98% Records Reviewed Old ED records reviewed (Using the electronic record system of [facility], [place] arellano reviewed the records with regard to the past medical/surgical history, previous medic ations, and allergies). Numerous prior ED visits for similar and unrelated complaints. Nursing notes reviewed for c hief complaint, medications, clinical presentation and vital signs. Laboratory Evaluation Labs Reviewed POCT GLUCOSE - Abnormal; Notable for the following: GLUCOSE,POC SCREEN 120 (*) All other components within normal limits POCT GLUCOSE - Abnormal; Notable for the following: GLUCOSE,POC SCREEN 196 (*) All other components within normal limits POCT GLUCOSE - Abnormal; Notable for the following: GLUCOSE,POC SCREEN 128 (*) All other components within normal limits POCT GLUCOSE I personally reviewed the lab results and they have been posted to the chart. Pertinent po sitive and negative findings have been addressed appropriately. Radiology and EKG Evaluation Imaging Results None ED Diagnoses Final diagnoses Insulin reaction due to improper use of drug, initial encounter Hypertension Anxiety Disposition: ED Disposition Discharge Condition at discharge: Stable Follow-up Information Follow up With Details Comments Contact Info Jerrell Gutiérrez DO In 3 days [address] [facility] [address] [facility] Emergency Department If symptoms worsen [address] [facility] [address] Discharge Medications: Discharge Medication List as of 01/27/2014 1:30 PM Procedures Additional Documentation Procedures Attending Note: Documentation assistance provided by JAKE KELLEY (Scribe). Information recorded by the scribe has been reviewed and validated by me. I ag ree with its contents. DO Bimal Austin DO 01/28/14 0012 onversion Transac tion, Provider Unknown - 01/27/2014 1:02 AM PSTFormatting of this note might be different f rom the original. ED Notes by Renetta Goode RN at 01/27/14101 Author: Renetta Goode RN Service: (none) Author Type: Registered Nurse Filed: 01/27/14107 Date of Service: 01/27/14101 Status: Signed Karate Instructor: Renetta Goode RN (Registered Nurse) Per Froy, pt was accidentally given Novolog 54 units instead of Lantus at 2100 this cintia gifty. Blood sugar at that time was 242. At 0000 pt's blood sugar was 85 and pt started to c/ o of abd pain. Pt tolerating PO fluids. Denies n/v. Renetta Goode RN 01/27/14107 onver ivana Transaction, Provider Unknown - 01/27/2014 12:49 AM PST ED Notes by Mayra Xie RN at 01/27/1448 Author: Mayra Xie RN Service: (none) Author Type: Registered Nurse Filed: 01/27/1448 Date of Service: 01/27/1448 Status: Signed Karate Instructor: Mayra Xie RN (Registered Nurse) Bed: 10 Expected date: Expected time: Means of arrival: Comments: docume nted in this encounter Plan of Treatment +--------+---------+ + + + | Date | Type | Specialty | Care Team | Description | +--------+---------+ + + + | 09/10/ | Office | Geriatric Medicine | Mireya Pack, | | | 2019 | Visit | | OIL AND GAS SPECIALIST [address] | | | | | | [address] [place], | | | | | | [place] [address] | | | | | | [phone] | | | | | | | | +--------+---------+ + + + | 09/29/ | Office | Urology | Mireya Pack, | | | 2019 | Visit | | OIL AND GAS SPECIALIST [address] | | | | | | [facility] [address] [place], | | | | | | [place] [address] | | | | | | [phone] | | | | | | | | | | | | Toy Wild, DO | | | | | | [address] | | | | | | [place] [address] | | | | | | [phone] | | | | | | | | +--------+---------+ + + + documented as of this encounter Procedures + +--------+ + + + | Procedure Name | Priori | Date/Time | Associated Diagnosis | Comments | | | ty | | | | + +--------+ + + + | POC GLUCOSE | Routin | 01/27/2014 | | Results for this | | | e | 3:21 AM | | procedure are in the | | | | PST | | results section. | + +--------+ + + + | POC GLUCOSE | Routin | 01/27/2014 | | Results for this | | | e | 2:30 AM | | procedure are in the | | | | PST | | results section. | + +--------+ + + + | POC GLUCOSE | Routin | 01/27/2014 | | Results for this | | | e | 1:37 AM | | procedure are in the | | | | PST | | results section. | + +--------+ + + + | POC GLUCOSE | Routin | 01/27/2014 | | Results for this | | | e | 12:54 AM | | procedure are in the | | | | PST | | results section. | + +--------+ + + + documented in this encounter Results POC Glucose (01/27/2014 3:21 AM PST) + + + + + + | Component | Value | Ref Range | Performed | Pathologist | | | | | At | Signature | + + + + + + | Glucose, | 99Comment: Testing | 65 - 99 mg/dL | EXTERNAL | | | Fingerstick | performed at [facility];[address] | | LAB | | | | [address];[place] | | | | | | [address] | | | | + + + + + + + + | Specimen | + + | | + + + +---------+ + + | Performing | Address | City/State/Zipcode | Phone Number | | Organization | | | | + +---------+ + + | EXTERNAL LAB | | | | + +---------+ + + POC Glucose (01/27/2014 2:30 AM PST) + + + + + + | Component | Value | Ref Range | Performed | Pathologist | | | | | At | Signature | + + + + + + | Glucose, | 128 (H)Comment: Testing | 65 - 99 mg/dL | EXTERNAL | | | Fingerstick | performed at [facility];[address] | | LAB | | | | [address];[place] | | | | | | [address] | | | | + + + + + + + + | Specimen | + + | | + + + +---------+ + + | Performing | Address | City/State/Zipcode | Phone Number | | Organization | | | | + +---------+ + + | EXTERNAL LAB | | | | + +---------+ + + POC Glucose (01/27/2014 1:37 AM PST) + + + + + + | Component | Value | Ref Range | Performed | Pathologist | | | | | At | Signature | + + + + + + | Glucose, | 196 (H)Comment: Testing | 65 - 99 mg/dL | EXTERNAL | | | Fingerstick | performed at [facility];[address] | | LAB | | | [address];[place], [place] | | | | | | [address] | | | | + + + + + + + + | Specimen | + + | | + + + +---------+ + + | Performing | Address | City/State/Zipcode | Phone Number | | Organization | | | | + +---------+ + + | EXTERNAL LAB | | | | + +---------+ + + POC Glucose (01/27/2014 12:54 AM PST) + + + + + + | Component | Value | Ref Range | Performed | Pathologist | | | | | At | Signature | + + + + + + | Glucose, | 120 (H)Comment: Testing | 65 - 99 mg/dL | EXTERNAL | | | Fingerstick | performed at [facility];[address] | | LAB | | | | [address];[place], [place] | | | | | | [address] | | | | + + + [...] + | Diagnosis | + + | Insulin reaction due to improper use of drug, initial encounter | + + | Hypertension Unspecified essential hypertension | + + | Anxiety Anxiety state, unspecified | + + documented in this encounter
--- OUTSIDE RECORDS SUMMARY | ~2019-09-09 | XMS | Encounter Summary ---
Demographics + + + | Address | [address] | | | [place] [address] | + + + | Home Phone [...] + | Sammi Kohler | ECON | [place] [address] | | + + + + + Care Team Providers + +------+ + | Care Computerized Table Cutter Name | Role | Phone | + +------+ + PCP | Unavailable | + +------+ + Encounter Details +--------+ + + + + | Date | Type | Department | Care Team | Description | +--------+ + + + + | 05/29/ | Hospital | [facility] | Conversion | | | 2015 | Encounter | [facility] SPE[facility] AND | Transaction, | | | | | LANGUAGE PATHOLOGY | Provider Unknown | | | | | [address] | [phone] | | | | | [place] | | | | | | [address] | | | | | | [phone] | | | +--------+ + + + [...] documented as of this encounter Miscellaneous Notes Miscellaneous - Conversion Transaction, Provider Unknown - 05/29/2014 9:52 AM PDTFormattin g of this note might be different from the original. Treatment Plan by Mili Newman MS CCC-PHOTOVOLTAIC TECHNICIAN at 05/29/14951 Author: Mili Newman MS CCC-PHOTOVOLTAIC TECHNICIAN Service: (none) Author Type: Speech and Instrument Specialist ologist Filed: 05/29/14 1035 Date of Service: 05/29/14951 Status: Signed Voice Pathologist: Mili Newman MS CCC-PHOTOVOLTAIC TECHNICIAN (Speech and Language Pathologist) Adult Modified Barium Swallow Report Kevyn Guzman Evaluation Date: 05/29/2014 Total Treatment Time/Evaluation Time:29 min Charges: Swallow function video level 2 General Information Date of Onset: 05/23/14 (referral date) Type of Study: Initial MBS Dysphagia Diagnosis: Esophageal Esophageal Dysphagia : Appears to have impaired esophageal phase Diagnoses: 787.20 (ICD-9-CM) - Dysphagia, unspecified 305.41 (ICD-9-CM) - Sedative, hypnotic or anxiolytic abuse, continuous Jerrell Ginny Diego, DO [address] [place] [address] Services Requested/Ordered: Modified Barium Swallow Functional Limitation - G Codes Swallowing: $[id number] Current Status : CI - At least 1% but less than 20% impaired, limited or restricted $[id number] Projected Goal Status : CI - At least 1% but less than 20% impaired, limited or res tricted $[id number] D/C Status : CI - At least 1% but less than 20% impaired, limited or restricted Rationale: Additional time required for intake. HISTORY General Information Date of Onset: 05/23/14 (referral date) Type of Study: Initial [facility] Dysphagia Diagnosis: Esophageal Esophageal Dysphagia : Appears to have impaired esophageal phase History significant for: Gastroesophageal reflux disease Additional history: Pt is a 58 y.o. Male who c/o occasional dysphagia but re: he consumes a regular diet and thin liquids. No specific complaints were reported and no other PMH provid ed. Pt arrived alone but had paperwork from his facility. PROCEDURE: viewed via lateral fluoroscopy, viewed via anterior-posterior fluoroscopy and se ated at 90 degress RESULTS: Oral phase: Oral Preparation/Oral Phase Oral Phase: WFL Pharyngeal phase Pharyngeal Phase Pharyngeal Phase: WFL Pharyngeal Phase - Comment Pharyngeal Comment: No laryngeal penetration and/or aspiration observed. Esophageal phase Esophageal Phase Esophageal Phase: Impaired Esophageal Phase - Thin Thin : Possible increased esophageal clearance time, Esophageal backflow into the upper eso phagus Esophageal Phase - Solids Soft Solid: Decreased esophageal peristalsis Solid: Decreased esophageal peristalsis Barium Pill: Other (comment) [facility] for pill Recommendations Recommendations/Treat Recommendations: Esophagram, GI evaluation Recommendations Comment: Consider further esophageal testing. Dysphagia Therapy: Not recommended Solid Consistency: Reg Liquid Consistency: Thin Liquid Administration Via: Cup, Straw Medication Administration: PO with recommended liquid Supervision: Minimal Compensatory Strategies: Alternating liquids and solids Postural Changes and/or Swallow Maneuvers: Upright 90 degrees, Upright 30 min after meal Individuals Consulted Consulted, Agrees & States Understanding with Results and Recommendations: Patient Consultation Comments: Pt vb understanding, however written results given to pt's facility with the form they provided. Education: Patient/Caregiver was given written documentation regarding diet/liquid recommen dations and swallow/precautions: Yes Time Calculation (min): 29 min Genaro wilson in this encounter Plan of Treatment +--------+---------+ + + + | Date | Type | Specialty | Care Team | Description | +--------+---------+ + + + | 09/10/ | Office | Geriatric Medicine | Mireya Pack, | | | 2019 | Visit | | EP SPECIALIST [address] | | | | | | [address] [facility], | | | | | | [place] [address] | | | | | | [phone] | | | | | | | | +--------+---------+ + + + | 09/29/ | Office | Urology | Mireya Pack, | | | 2019 | Visit | | EP SPECIALIST [address] | | | | | | [address] [facility], | | | | | | [place] [address] | | | | | | [phone] | | | | | | | | | | | | Toy Wild DO | | | | | | [address] | | | | | | [place] [address] | | | | | | [phone] | | | | | | | | +--------+---------+ + + + documented as of this encounter Visit Diagnoses Not on filedocumented in this encounter"
--- OUTSIDE RECORDS SUMMARY | ~2019-09-09 | XMS | Encounter Summary ---
Demographics + + + | Address | [address] | | | [place] [address] | + + + | Home Phone [...] Sammi Kohler | ECON | [place] [address] | | + + + + + Care Team Providers + +------+ + | Care Prior Authorization Technician Name | Role | Phone | + +------+ + | Mireya Pack NP | PCP | | + +------+ + Encounter Details +--------+ + + + + | Date | Type | Department | Care Team | Description | +--------+ + + + + | 08/10/ | Orders Only | [facility] | Noble Conteh MD | | | 2019 | | CONVERSION [address]P [address] | [address] | | | | | [address] | [place] [address] | | | | | [place], [place] | [phone] | | | | | [address] | | | | | | [phone] | | | +--------+ + + + [...] | | 2019 | Visit | | GROUND SCHOOL INSTRUCTOR [address] | | | | | | [address] [place] | | | | | | [place] [address] | | | | | | [phone] | | | | | | | | +--------+---------+ + + + | 09/29/ | Office | Urology | Mireya Pack, | | | 2019 | Visit | | GROUND SCHOOL INSTRUCTOR [address] | | | | | | [address] [place] | | | | | | [place] [address] | | | | | | [phone] | | | | | | | | | | | | Toy Wild DO | | | | | | [address] | | | | | | [place] [address] | | | | | | [phone] | | | | | | | [...]
--- OUTSIDE RECORDS SUMMARY | ~2019-09-09 | XMS | Encounter Summary ---
Demographics + + + | Address | [address] | | | [place] [address] | + + + | Home Phone [...] Sammi Kohler | ECON | [place] [address] | | + + + + + Care Team Providers + +------+ + | Care Manager Supplier Name | Role | Phone | + [...] + + | 04/12/ | Emergency | [facility] | Norah Barker MD | Type 2 diabetes | | 2020 | | [facility] | [address] | mellitus with | | | | EMERGENCY CENTER | [place] [address] | hyperglycemia, with | | | | [address] | [phone] | long-term current | | | | [place], [place] | | use of insulin (HCC) | | | | [address] | | (Primary Dx); | | | | [phone] | | Atypical chest pain | +--------+ [...] through Care Everywhere.Hyperglycemia ( High Blood Sugar) (Singaporean)Chest Pain, Uncertain Cause (Singaporean)documented in this encounter Medications at Time of [...] elevated blood sugar. Pt was discharged ho ar and instructed to continue to monitor glucose. 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 Pt noted to have blood sugar of 315 upon EMS transport to ER. Pt was given 324mg of aspirin per EMS. 8:4 7 PM Norah Almodovar MD - 04/13/2019 8:40 PM PSTFormatting of this note might be differe nt from the original. [facility] Department of Emergency Medicine History of Present Illness Patient Identification Norah Gr is a 63 y.o. male. Patient information was obtained from patient History/Exam limitations:none [id number] Primary Care Doctor: Mireya Pack NP Chief Complaint Chief Complaint Patient presents with Chest Pain Seen earlier today for hyperglycemia Norah Gr is a 63 y.o. male [...] - CHOLECYSTECTOMY; Surgeon: Jevon Vargas DO; Location: [facility] MAIN OR; Service: General; Laterality: N/A; COLONOSCOPY COLONOSCOPY 03/04/2013 Procedure: COLONOSCOPY; Surgeon: Howie Gibson MD; Location: [facility] ENDOSCOPY; Service: Gastroen terology; Laterality: N/A; HERNIA REPAIR 07/03/2013 Procedure: LAPAROSCOPIC - HERNIA - INCISIONAL; Surgeon: Jevon Vargas DO; Location: [facility] OR; Service: General; Laterality: N/A; KNEE SURGERY rt knee, patella LEG SURGERY LLE OTHER SURGICAL HISTORY UNLISTED PROCEDURE ARTHROSCOPY OTHER SURGICAL HISTORY Left 05/05/2014 SKIN LESION EXCISION - Procedure: EXCISION - LESION - FROZEN SECTION; Surgeon: Sy murcia MD; Location: [facility] MA[facility] OR; Service: Plastics; Laterality: Left; forearm SKIN BIOPSY SKIN CANCER EXCISION Left 10/10/2012 Procedure: EXCISION - SKIN CANCER; Surgeon: Sy Fierro MD; Location: [facility] OR; Service: Plastics; Laterality: Left; upper arm and upper back w/frozen section UPPER GASTROINTESTINAL ENDOSCOPY UPPER GASTROINTESTINAL ENDOSCOPY 03/03/2013 Procedure: ESOPHAGOGASTRODUODENOSCOPY; Surgeon: Howie Gibson MD; Location: [facility] ENDOSCOPY; Se rvice: Gastroenterology; Laterality: [...] Course ED Department Course: 8:40 PM Norah Gr is a 63 y.o. [...] Component Value Ref Range Date/Time Protime INR [[id number]] Collected: 04/13/192101 Order Status: Completed Specimen: Blood Updated: 04/13/192137 INR 0.9 PTT [[id number]] Collected: 04/13/192101 Order Status: Completed Specimen: Blood Updated: 04/13/192137 PTT 26 23 - 32 seconds Comprehensive Metabolic Panel [[id number]] (Abnormal) Collected: 04/13/192101 Order Status: Completed Specimen: [...] Estimated GFR >60 >60 mL/min/1.73m2 Troponin I [[id number]] Collected: 04/13/192101 Order Status: Completed Specimen: Blood Updated: 04/13/192130 Troponin I 0.018 0.00 - 0.04 ng/mL Ketones, Serum [[id number]] Collected: 04/13/192101 Order Status: Completed Specimen: Blood Updated: 04/13/192123 Ketones, Blood NEGATIVE NEG CBC with Differential [[id number]] (Abnormal) Collected: 04/13/192101 Order Status: Completed Specimen: [...] bone abnormality. Negative chest. Signed by: Irina Gr, Bhavin Sign Date/Time: 04/13/2019 9:12 PM ECG from 2054: Sinus rhythm at 72 bpm. AK, QRS, QT, and axis are normal. No [...] [address] [facility] [id number] [facility]. Specialty: Emergency Medicine Why: If symptoms worsen Contact information: [address] [facility] [address] Discharge Medications: ED Prescriptions None This document has been prepared with a voice recognition system. The possibility of "sound alike" manager strategic sourcing errors, addition and/or deletions may occur. If there is any question p lease contact the author of the document. Procedures Norah Barker MD 04/13/19 2145 Germaine Castillo RN - 04/13/2019 8:40 PM PSTBed: [id number] Expected date: Expected time: Means of arrival: Comments: CP 1722 documented in t his encounter Plan of Treatment +--------+---------+ + + + | Date | Type | Specialty | Care Team | Description | +--------+---------+ + + + | 09/10/ | Office | Geriatric Medicine | Mireya Pack, | | 2019 | Visit | | TOP PRECIPITATOR OPERATOR HELPER [address] | | | | | | [address] [place], | | | | | | [place] [address] | | | | | | [phone] | | | | | | | | +--------+---------+ + + + | 09/29/ | Office | Urology | Mireya Pack, | | | 2020 | Visit | | TOP PRECIPITATOR OPERATOR HELPER [address] | | | | | | [address] [place], | | | | | | [place] [address] | | | | | | [phone] | | | | | | | | | | | | Toy Wild, DO | | | | | | [address] | | | | | | [place] [address] | | | | | | [phone] | | | | | | | [...] | | | 04/12/ | | | 2020 | | | 8:41 | | | [...] | | | ON?03/ | | | | | | 0 | | | 20:40? | | | GR, | | | NORAH | | | | | | M?MRN: | | | | | | [id number] | | | [id number] | | | riteri | | | [...] | | s [facility] | | | [place] | | | [place] | | | [...] | | | [place] | | | Aerospace Quality Engineer | | | al | | | [...] | | | guidel | | | anderi | | | or for | | [...] + | Negative chest. Signed by: Irina Gr, Bhavin Sign | [facility] | | [...] Irina rG Shawn | | Sign Date/Time: 04/13/2019 9:12 [...] | | | Blood | performed at [facility];[address] | | LABORATORY | | | | [address];[place] | | | | | | [address] | | | | + + + + + + + + | Specimen | + + | Blood | + + + + + + + | Performing | Address | City/State/Zipcode | Phone Number | | Organization | | | | + + + + + | [facility] | [address] | [place] [address] | [phone] | + + + + + Troponin I (04/13/2019 9:02 PM PST) + + + + + + | Component | Value | Ref Range | Performed | Pathologist | | | | | At | Signature | + + + + + + | Troponin I | 0.018Comment: 0.04 | 0.00 - 0.04 | [facility] | | | | ng/mL [...] | | | | | | [facility];[address] [facility] | | | | | | [facility];[place] [address] | | | | + + + + + + + + | Specimen | + + | Blood | + + + + + + + | Performing | Address | City/State/Zipcode | Phone Number | | Organization | | | | + + + + + | [facility] | [address] | [place] [address] | [phone] | + + + + + PTT (04/13/2019 9:02 PM PST) + + + + + + | Component | Value | Ref Range | Performed | Pathologist | | | | | At | Signature | + + + + + + | PTT | 26Comment: Testing | 23 - 32 seconds | [facility] | | | | performed at [facility];[address] | | LABORATORY | | | | [address];[place] | | | | | | [address] | | | | + + + + + + + + | Specimen | + + | Blood | + + + + + + + | Performing | Address | City/State/Zipcode | Phone Number | | Organization | | | | + + + + + | [facility] | [address] | [place] [address] | [phone] | + + + + + Protime [...] | | | | performed at [facility];[address] | | | | | | [address];[place] | | | | | | [address] | | | | + + + + + + + + | Specimen | + + | Blood | + + + + + + + | Performing | Address | City/State/Zipcode | Phone Number | | Organization | | | | + + + + + | [facility] | [address] | [place] [address] | [phone] | + + + + + Comprehensive [...] | | | | performed at [facility];[address] | | | | | | [facility];[place], [place] | | | | | | [address] | | | | + + + + + + + + | Specimen | + + | Blood | + + + + + + + | Performing | Address | City/State/Zipcode | Phone Number | | Organization | | | | + + + + + | [facility] | [address] | [place] [address] | [phone] | + + + + + CBC [...] | | | Absolute | performed at [facility];[address] | [address] | LABORATORY | | | | [address];[place], [place] | | | | | | [address] | | | | + + + + + + + + | Specimen | + + | Blood | + + + + + + + | Performing | Address | City/State/Zipcode | Phone Number | | Organization | | | | + + + + + | [facility] | [address] | [place] [address] | [phone] | + + + + + ECG [...] 13-APR-2019 | | | | | | 09:07,Inverted [...] (500), | | | | | | television news video editor Uriel Simms | | | | [...]
--- OUTSIDE RECORDS SUMMARY | ~2019-09-09 | XMS | Encounter Summary ---
Demographics + + + | Address | [address] | | | [place] [address] | + + + | Home Phone [...] Sammi Kohler | ECON | [place] [address] | | + + + + + Care Team Providers + +------+ + | Care Permit Agent Name | Role | Phone | [...] + + | 05/21/ | Skilled | [facility] | Reinaldo Sanchez | Chronic obstructive | | 2020 | Nursing | [facility] | MD Xander [address] | pulmonary disease, | | | Facility | [facility] [address] | unspecified COPD | | | | [address] | [place] [address] | type ([facility]) (Primary | | | | [place], [place] | [phone] | Dx); W[place] | | | | [address] | | (obstructive sleep | | | | [phone] | | apnea); 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 Admitted for fall from ground level. Patient t o continue on Eliquis, unless hematoma expands. He is to continue on Coreg and Apixiban for a-fib. Discharged to SNF for PT/OT, medication management and residential. History: Past Medical History: Diagnosis Date Acute pulmonary embolism (HCC) 10/14/2017 Anxiety ARF (acute renal failure) ([facility]) 03/02/2013 Atrial fibrillation (HCC) Basal cell carcinoma 09/26/2012 arm and back COPD (chronic obstructive pulmonary disease) ([facility]) 03/02/2013 hypoxemia on 2 lts nc Depression Development delay Diabetes mellitus type II DVT (deep venous thrombosis) ([facility]) 03/29/2018 Facial droop 07/08/2013 GIB [...] MD; Location: [facility] ENDOSCOPY; Service: Gastroen terology; Laterality: N/A; [...] FROZEN SECTION; Surgeon: Sy murcia MD; Location: [facility] MAIN OR; Service: Plastics; Laterality: Left; forearm SKIN BIOPSY SKIN CANCER EXCISION Left 10/10/2012 Procedure: EXCISION - SKIN CANCER; Surgeon: Sy Fierro MD; Location: [facility]; Service: Plastics; Laterality: Left; upper arm and upper back w/frozen section UPPER GASTROINTESTINAL ENDOSCOPY UPPER GASTROINTESTINAL ENDOSCOPY 03/03/2013 Procedure: ESOPHAGOGASTRODUODENOSCOPY; Surgeon: Howie Gibson MD; Location: [facility] END[facility]; Se rvice: Gastroenterology; Laterality: N/A; [...] CREA 0.9 05/16/2019 042 ANIONGAP 10 05/16/2019 042 Component Value Date/Time CALCIUM 9.2 05/16/2019 0429 ALKPHOS 129 (H) 05/16/20199 AST 20 05/16/20199 ALT 24 05/16/2019 0429 ALBUMIN 2.5 (L) 05/16/2019 0429 BILITOT 0.5 09/21/2018 1810 Lab Results Component Value Date EGFR >60 05/16/2019 GLUF 292 (H) 09/21/2018 GLOB 2.7 09/21/2018 Lab Results Component Value Date WBC 10.82 05/18/2019 HGB 11.4 (L) 05/18/2019 HCT 34.1 (L) 05/18/2019 MCV 85.0 05/18/2019 PLT 207 05/18/2019 No results found for: [id number] No results found for: FOLATE No results [...] | | 2019 | Visit | | MOLD MAKER PLASTIC MOLDS [address] | | | | | | [facility] [address] [place], | | | | | | [place] [address] | | | | | | [phone] | | | | | | | | +--------+---------+ + + + | 09/29/ | Office | Urology | Mireya Pack, | | 2019 | Visit | | MOLD MAKER PLASTIC MOLDS [address] | | | | | | [facility] [address] [place] | | | | | | [place] [address] | | | | | | [phone] | | | | | | | | | | | | Toy Wild, DO | | | | | | [address] | | | | | | [place] [address] | | | | | | [phone] | | | | | | | [...] | insulin (HCC) | + + | Essential hypertension Unspecified essential hypertension | + + | Atrial fibrillation with RVR (HCC) Atrial fibrillation | + + documented in this encounter
--- OUTSIDE RECORDS SUMMARY | ~2019-09-09 | XMS | Encounter Summary ---
Demographics + + + | Address | [address] | | | [place] [address] | + + + | Home Phone [...] Sammi Kohler | ECON | [place] [address] | | + + + + + Care Team Providers + +------+ + | Care Purchasing And Fiscal Clerk Name | Role | Phone | + [...] + + | 01/03/ | Emergency | [facility] | [place], | Dizziness (Primary | | 2019 - | | [facility] | PA-C [address] | Dx); Fall, initial | | | | CARE FLOOR [address] | [place], [place] | encounter; Closed | | 01/05/ | | [address] | [address] | head injury, initial | | 2019 | | [place], [place] | [phone] | encounter; | | | | [address] | | Hyperglycemia | | | | [phone] | Patti Kelly DO | | | | | | [address] | | | | | | [place] [address] | | | | | | [phone] | | | | | | | | | | | | Georgia Riley MD | | | | | | [address] | | | | | | [place] [address] | | | | | | [phone] | | | | | | | [...] Take 1 tablet by mouth nightly. aka: Ubiterra Blood Glucose Monitor System w/Device Kit Dispense [...] more often than directed. Talk to your chemist regarding the use of this medicine in children. Special care may be needed. What side effects may I notice from receiving this medicine? Side effects that you should report to your doctor or health day care attendant as soon as p ossible: feeling faint or lightheaded, falls fast, irregular heartbeat Side effects that usually do not require medical attention (report to your doctor or health day care attendant if they continue or are bothersome): constipation [...] pharmacist, or health care provider. Copyright 2019 [employer] Possible Causes of Dizziness or Fainting Dizziness [...] r for more information. Date Last Reviewed: 06/06/201719994635-7000 [employer]. [address] [place] [address]. All righ ts reserved. This information is [...] | | | | use of insulin ([facility]) | | | | | | + [...] might be different from t keaton original. [facility] Service: Hospitalist Admission History & Physical [...] MD; Location: [facility]; Service: Gastroen terology; Laterality: [...] FROZEN SECTION; Surgeon: Sy murcia MD; Location: [facility]; Service: Plastics; Laterality: Left; forearm SKIN BIOPSY SKIN CANCER EXCISION Left 10/10/2012 Procedure: EXCISION - SKIN CANCER; Surgeon: Sy Fierro MD; Location: [facility]; Service: Plastics; Laterality: Left; upper arm and upper back w/frozen section UPPER GASTROINTESTINAL ENDOSCOPY UPPER GASTROINTESTINAL ENDOSCOPY 03/03/2013 Procedure: ESOPHAGOGASTRODUODENOSCOPY; Surgeon: Howie Gibson MD; Location: [facility]; rvice: Gastroenterology; Laterality: N/A; ALLERGIES Allergies [...] every morning (before breakfast ). 12/26/18 Mireya Pakc NP tamsulosin (FLOMAX) 0.4 mg CAPS Take [...] Occ Bld Stl For Colorectal Neoplasm Scr [[id number]] Order Status: Canceled Lab Status: No result [...] a ir cells: Slight worsening in current wtan-ib-klheoibh mucosal involving the right maxillary sinus inferiorly. [...] mild multilevel degenerative disc disease. Facets and child specialist ior spinal elements: No facet subluxation, dislocation, [...] DVT prophylaxis Code Status: Prior Dictation software, Dest[employer], used which may contain errors for similar [...] PA-C - 01/03/2019 8: 35 PM PST [facility] Department of Emergency Medicine No flowsheet [...] (HCC) 10/14/2017 Anxiety ARF (acute renal failure) ([facility]) 03/02/2013 Atrial fibrillation (HCC) Basal cell carcinoma 09/26/2012 arm and back COPD (chronic obstructive pulmonary disease) ([facility]) 03/02/2013 hypoxemia on 2 lts nc Depression Development delay Diabetes mellitus type II DVT (deep venous thrombosis) ([facility]) 03/29/2018 Facial droop 07/08/2013 GIB (gastrointestinal [...] MD; Location: [facility]; Service: Gastroen terology; Laterality: [...] FROZEN SECTION; Surgeon: Sy murcia MD; Location: [facility]; Service: Plastics; Laterality: Left; forearm SKIN BIOPSY SKIN CANCER EXCISION Left 10/10/2012 Procedure: EXCISION - SKIN CANCER; Surgeon: Sy Fierro MD; Location: [facility]; Service: Plastics; Laterality: Left; upper arm and upper back w/frozen section UPPER GASTROINTESTINAL ENDOSCOPY UPPER GASTROINTESTINAL ENDOSCOPY 03/03/2013 Procedure: ESOPHAGOGASTRODUODENOSCOPY; Surgeon: Howie Gibson MD; Location: [facility]; Se rvice: Gastroenterology; Laterality: N/A; TECHNOLOGY INFUSION SPECIALIST Home Medications Medication Sig acetaminophen (TYLENOL) [...] normal Meclizine given 2220 IV insulin given 2305 recheck IVFluids almost completed. He remains awake, [...] MRA of brain without contrast. I called technology specialist who states MRA is no MRI angiogram on new [facility] stem Results for orders placed or performed during [...] mastoid air cells: Slight worsening in current yxqk-oq-xbyxdgbu mucosal involving the right maxillary sinus inferiorly. [...] coronal T2, axial DWI. MRA Brain: 3-D ehks-to-tkwxfs MRA with MIP reformations. FINDINGS: MRI Brain: [...] coronal T2, axial DWI. MRA Brain: 3-D ywmz-mu-hfbcdj MRA with MIP reformations. FINDINGS: MRI Brain: [...] is using it ap propriately. Negative Troponins [id number] signed by Karissa Matute RN at 019 [...] | | 2019 | Visit | | [employer]ING MACHINE [employer]ENDER [address] | | | | | | [address] [place], | | | | | | [place] [address] | | | | | | [phone] | | | | | | | | +--------+---------+ + + + | 09/29/ | Office | Urology | Mireya Pack, | | 2019 | Visit | | SPINNING MACHINE TENDER [address] | | | | | | [address] [place], | | | | | | [place] [address] | | | | | | [phone] | | | | | | | | | | | | [place], | | | | | | [address] | | | | | | [place] [address] | | | | | | [phone] | | | | | | | [...] | | | 2018 | | | 8:04 | | | [...] M?MRN: | | | | | | [id number] | | | [id number] | | | riteri | | | [...] | | s [facility] | | | [place] | | | [place] | | | [...] | | | [id number]-ad3d | | | [id number] | | | 0d | | | [...] | | | | | performed at [facility];[address] | | | | | | [facility];[place], [place] | | | | | | [address] | | | | + + + + + + + + | Specimen | + + | Blood | + + + + + + + | Performing | Address | City/State/Zipcode | Phone Number | | Organization | | | | + + + + + | [facility] | [address] | [place] [address] | [phone] | + + + + + POC [...] | | | POC | performed at [facility];[address] | | LABORATORY | | | | [address];[place] | | | | | | [address] | | | | + + + + + + + + | Specimen | + + | | + + + + + + + | Performing | Address | City/State/Zipcode | Phone Number | | Organization | | | | + + + + + | [facility] | [address] | [place] [address] | [phone] | + + + + + POC Glucose (01/05/2019 7:22 AM PST) + + + + + + | Component | Value | Ref Range | Performed | Pathologist | | | | | At | Signature | + + + + + + | Glucose, | 116 (H)Comment: Testing | 65 - 99 mg/dL | [facility] | | | POC | performed at [facility];[address] | | LABORATORY | | | | [address];[place] | | | | | | [address] | | | | + + + + + + + + | Specimen | + + | | + + + + + + + | Performing | Address | City/State/Zipcode | Phone Number | | Organization | | | | + + + + + | [facility] | [address] | [place] [address] | [phone] | + + + + + POC Glucose (01/04/2019 9:33 PM PST) + + + + + + | Component | Value | Ref Range | Performed | Pathologist | | | | | At | Signature | + + + + + + | Glucose, | 160 (H)Comment: Testing | 65 - 99 mg/dL | [facility] | | | POC | performed at [facility];[address] | | LABORATORY | | | | [address];[place] | | | | | | [address] | | | | + + + + + + + + | Specimen | + + | | + + + + + + + | Performing | Address | City/State/Zipcode | Phone Number | | Organization | | | | + + + + + | [facility] | [address] | [place] [address] | [phone] | + + + + + POC [...] | | | POC | performed at [facility];[address] | | LABORATORY | | | | [address];[place], [place] | | | | | | [address] | | | | + + + + + + + + | Specimen | + + | | + + + + + + + | Performing | Address | City/State/Zipcode | Phone Number | | Organization | | | | + + + + + | [facility] | [address] | [place] [address] | [phone] | + + + + + POC [...] | | | POC | performed at [facility];[address] | | LABORATORY | | | | [address];[place] | | | | | | [address] | | | | + + + + + + + + | Specimen | + + | | + + + + + + + | Performing | Address | City/State/Zipcode | Phone Number | | Organization | | | | + + + + + | [facility] | [address] | [place] [address] | [phone] | + + + + + VAS [...] ultrasound | | | consensus criteria. Radiology. 2003 Nov;229(2):340-6. 2002Oct 24. | | | Signed by: Irina Ji Richard Sign Date/Time: 01/04/2019 | | | 10:16 [...] + + | Performing | Address | City/State[facility] | Phone Number | | Organization | [...] Testing | 65 - 99 mg/dL | [facility] | | | | performed at [facility];[address] | | LABORATORY | | | | [address];[place], [place] | | | | | | [address] | | | | + + + + + + + + | Specimen | + + | Blood | + + + + + + + | Performing | Address | City/State/Zipcode | Phone Number | | Organization | | | | + + + + + | [facility] | [address] | [place] [address] | [phone] | + + + + + POC [...] | | | POC | performed at [facility];[address] | | LABORATORY | | | | [address];[place] | | | | | | [address] | | | | + + + + + + + + | Specimen | + + | | + + + + + + + | Performing | Address | City/State/Zipcode | Phone Number | | Organization | | | | + + + + + | [facility] | [address] | [place] [address] | [phone] | + + + + + Troponin I (01/04/2019 6:44 AM PST) + + + + + + | Component | Value | Ref Range | Performed | Pathologist | | | | | At | Signature | + + + + + + | Troponin I | 0.014Comment: 0.04 | 0.00 - 0.04 | [facility] | | | | ng/mL [...] | | [facility];[address];[place] [address] | | | | + + + + + + + + | Specimen | + + | Blood | + + + + + + + | Performing | Address | City/State/Zipcode | Phone Number | | Organization | | | | + + + + + | [facility] | [address] | [place] [address] | [phone] | + + + + + POC [...] | | | POC | performed at [facility];[address] | | LABORATORY | | | | [address];[place] | | | | | | [address] | | | | + + + + + + + + | Specimen | + + | | + + + + + + + | Performing | Address | City/State/Zipcode | Phone Number | | Organization | | | | + + + + + | [facility] | [address] | [place] [address] | [phone] | + + + + + CBC no Differential (01/04/2019 3:28 AM PST) + + + + + + | Component | Value | Ref Range | Performed | Pathologist | | | | | At | Signature | + + + + + + | WBC | 11.41 (H) | 3.80 - 11.00 | [facility] [...] [facility] | | | | performed at [facility], [address] | | LABORATORY | | | | [address], | | | | | | [place] [address] | | | | + + + + + + + + | Specimen | + + | Blood | + + + + + + + | Performing | Address | City/State/Zipcode | Phone Number | | Organization | | | | + + + + + | [facility] | [address] | [place] [address] | [phone] | + + + + + Troponin I (01/04/2019 3:28 AM PST) + + + + + + | Component | Value | Ref Range | Performed | Pathologist | | | | | At | Signature | + + + + + + | Troponin I | 0.016Comment: 0.04 | 0.00 - 0.04 | [facility] | | | | ng/mL [...] | | [facility];[address] [facility] | | | | | | [facility];[place] [address] | | | | + + + + + + + + | Specimen | + + | Blood | + + + + + + + | Performing | Address | City/State/Zipcode | Phone Number | | Organization | | | | + + + + + | [facility] | [address] | [place] [address] | [phone] | + + + + + Lipid [...] VALID WHEN TRIG | <100 mg/dL | [facility] | | | Calculated | >400 mg/dLComment: | | LABORATORY | | | | Testing performed at | | | | | | [facility], [address] | | | | | | [place] | | | | | | [address] | | | | + + + + + + + + | Specimen | + + | Blood | + + + + + + + | Performing | Address | City/State/Zipcode | Phone Number | | Organization | | | | + + + + + | [facility] | [address] | [place] [address] | [phone] | + + + + + POC [...] | | | POC | performed at [facility];[address] | | LABORATORY | | | | [address];[place], [place] | | | | | | [address] | | | | + + + + + + + + | Specimen | + + | | + + + + + + + | Performing | Address | City/State/Zipcode | Phone Number | | Organization | | | | + + + + + | [facility] | [address] | [place] [address] | [phone] | + + + + + MRI [...] | | | DWI. MRA Brain: 3-D gyrv-qd-rpqssg MRA with MIP reformations. | | | [...] | | | | MRA Brain: 3-D trjr-bw-psodrl MRA with MIP reformations. | | | [...] | | | DWI. MRA Brain: 3-D ynjc-gl-wjetgc MRA with MIP reformations. | | | [...] | | | | MRA Brain: 3-D uygp-bw-dtrwid MRA with MIP reformations. | | | [...] | | | POC | performed at [facility];[address] | | LABORATORY | | | | [address];[place], [place] | | | | | | [address] | | | | + + + + + + + + | Specimen | + + | | + + + + + + + | Performing | Address | City/State/Zipcode | Phone Number | | Organization | | | | + + + + + | [facility] | [address] | [place] [address] | [phone] | + + + + + POC Glucose (01/03/2019 9:46 PM PST) + + + + + + | Component | Value | Ref Range | Performed | Pathologist | | | | | At | Signature | + + + + + + | Glucose, | 385 (H)Comment: Testing | 65 - 99 mg/dL | [facility] | | | POC | performed at [facility];[address] | | LABORATORY | | | | [address];[place] | | | | | | [address] | | | | + + + + + + + + | Specimen | + + | | + + + + + + + | Performing | Address | City/State/Zipcode | Phone Number | | Organization | | | | + + + + + | [facility] | [address] | [place] [address] | [phone] | + + + + + CT [...] | | | Slight worsening in current mcbd-yb-rwalavju mucosal involving the | | | right [...] cells: Slight worsening in current | | tqiz-fz-sajstsyg mucosal involving the right maxillary sinus | [...] | | | | | ONLY, -COMPUTER ([id number]), | | | | | | deputy editor in chief FEDERICO ELDER | | | | | | ([id number]) on 01/06/2019 | | | | | [...] Testing | 1.7 - 2.4 mg/dL | [facility] | | | | performed at [facility];[address] | | LABORATORY | | | | [address];[place] | | | | | | [address] | | | | + + + + + + + + | Specimen | + + | Blood | + + + + + + + | Performing | Address | City/State/Zipcode | Phone Number | | Organization | | | | + + + + + | [facility] | [address] | [place] [address] | [phone] | + + + + + PTT (01/03/2019 8:04 PM PST) + + + + + + | Component | Value | Ref Range | Performed | Pathologist | | | | | At | Signature | + + + + + + | PTT | 27Comment: Testing | 23 - 32 seconds | [facility] | | | | performed at [facility];[address] | | LABORATORY | | | | [address];[place] | | | | | | [address] | | | | + + + + + + + + | Specimen | + + | Blood | + + + + + + + | Performing | Address | City/State/Zipcode | Phone Number | | Organization | | | | + + + + + | [facility] | [address] | [place] [address] | [phone] | + + + + + Protime [...] | | | | | performed at [facility];[address] | | | | | | [address];[place], [place] | | | | | | [address] | | | | + + + + + + + + | Specimen | + + | Blood | + + + + + + + | Performing | Address | City/State/Zipcode | Phone Number | | Organization | | | | + + + + + | [facility] | [address] | [place] [address] | [phone] | + + + + + CK-MB [...] CK Index | UNABLE TO | | ARPIT | | | | CALCULATEComment: | | LABORATORY | | | | Testing performed at | | | | | | [facility];[address];[place] [address] | | | | + + + + + + + + | Specimen | + + | Blood | + + + + + + + | Performing | Address | City/State/Zipcode | Phone Number | | Organization | | | | + + + + + | [facility] | [address] | [place] [address] | [phone] | + + + + + Troponin I (01/03/2019 8:04 PM PST) + + + + + + | Component | Value | Ref Range | Performed | Pathologist | | | | | At | Signature | + + + + + + | Troponin I | 0.019Comment: 0.04 | 0.00 - 0.04 | [facility] [...] at | | | | | | [facility];[address] [facility] | | | | | | [address];[place] [address] | | | | + + + + + + + + | Specimen | + + | Blood | + + + + + + + | Performing | Address | City/State/Zipcode | Phone Number | | Organization | | | | + + + + + | [facility] | [address] [facility] | [place] [address] | [phone] | + + + + + Comprehensive [...] 52 (L)Comment: GFR <60: | >60 | KR | [...] | | | | | | MDRD IDIA traceable | | | | | | equation.Testing | | | | | | performed at [facility];[address] | | | | | | [facility];[place], [place] | | | | | | [address] | | | | + + + + + + + + | Specimen | + + | Blood | + + + + + + + | Performing | Address | City/State/Zipcode | Phone Number | | Organization | | | | + + + + + | [facility] | [address] | [place] [address] | [phone] | + + + + + CBC [...] | | | | | performed at [facility];[address] | | | | | | [address];[place], [place] | | | | | | [address] | | | | + + + + + + + + | Specimen | + + | Blood | + + + + + + + | Performing | Address | City/State/Zipcode | Phone Number | | Organization | | | | + + + + + | [facility] | [address] | [place] [address] | [phone] | + + + + + documented [...] with hyperglycemia (HCC) | + + | COPD (chronic obstructive pulmonary disease) (HCC) Chronic airway obstruction, not | | elsewhere classified | + + | KESHAWN (acute kidney injury) (HCC) Acute kidney failure, unspecified | + [...] | | | | | dose on 01/04/19 at 0900 | | AM PST [...] 8:07 | | | | | on Mon01/04/19 at 0900, | | AM PST | [...] | | | | | mmHg., Starting 01/04/19 at | | | | | | [...] | | | | AC, NPO, Daytime 5152-5123 Use | | | | | | | NIGHT DOSE for doses scheduled: | | | | | | | HS, 3AM, Nighttime 9320-9218 | | | | | | | [...]
--- OUTSIDE RECORDS SUMMARY | ~2019-09-09 | XMS | Encounter Summary ---
Demographics + + + | Address | [address] | | | [place] [address] | + + + | Home Phone [...] + | Sammi Kohler | ECON | [place] [address] | | + + + + + Care Team Providers + +------+ + | Care Customer Support Analyst Name | Role | Phone | + +------+ + PCP | Unavailable | + +------+ + Encounter Details +--------+ + + + + | Date | Type | Department | Care Team | Description | +--------+ + + + + | 03/01/ | Emergency | [facility] | Robert Salmon | Lower extremity | | 2014 | | [facility] | E, DO [address] | edema | | | | EMERGENCY CENTER | [address] | | | | | [address] | [place], [place] | | | | | [place], [place] | [address] | | | | | [address] | [phone] | | | | | [phone] | | | +--------+ + + + [...] 03/01/2014 9:44 AM PSTFormatting of this note m ight be different from the original. ED Notes by Bambi Gama RN at 03/01/14943 Author: Bambi Gama RN Service: (none) Author Type: Registered Nurse Filed: 03/01/14943 Date of Service: 03/01/14943 Status: Signed Blanket Winder Helper: Bambi Gama RN (Registered Nurse) Blood drawn by lab phlebo Bambi Gama RN 03/01/14943 Robert Carballo DO - 03/01/2014 9:16 AM PSTFormatting of this note might be different from t he original. ED Provider Notes by Robert Salmon DO at 03/01/14915 Author: Robert Salmon DO Service: Emergency Department Author Type: Physician Filed: 03/01/14 2133 Date of Service: 03/01/14915 Status: Signed Blanket Winder Helper: Robert Salmon DO (Physician) Procedures Additional Documentation Procedures [facility] Department of Emergency Medicine 9:18 AM [...] kidney problems. PMHx: anxiety, diabetes PCP: JERRELL K WESTHUSING Past Medical History Diagnosis Date Diabetes mellitus [...] CHOLECYSTECTOMY; Surgeon: Jevon Vargas DO; Location: [facility] MA[facility] OR; Service: General; Laterality: N/A; Abdominal surgery Cholecystectomy Skin cancer excision 10/10/2012 Procedure: EXCISION - SKIN CANCER; Surgeon: Sy Fierro MD; Location: [facility] ; Service: Plastics; Laterality: Left; upper arm and upper back w/frozen section Esophagogastroduodenoscopy 03/03/2013 Procedure: ESOPHAGOGASTRODUODENOSCOPY; Surgeon: Howie Gibson MD; Location: [facility] ENDOSCOPY; S ervice: Gastroenterology; Laterality: N/A; Colonoscopy 03/04/2013 Procedure: COLONOSCOPY; Surgeon: Howie Gibson MD; Location: [facility] ENDOSCOPY; Service: Gastroe nterology; Laterality: N/A; Upper gastrointestinal endoscopy Skin biopsy Hernia repair 07/03/2013 Procedure: LAPAROSCOPIC - HERNIA - INCISIONAL; Surgeon: Jevon Vargas DO; Location: [facility]; Service: General; Laterality: N/A; Prior to Admission medications Medication Sig Start Date End Date Taking? Authorizing Provider Albuterol Sulfate (VENTOLIN HFA IN) Inhale 2 puffs into the lungs as needed. 108 mcg/act Historical Provider Bygje-L-Uszdzfayvpzpe (BEANO) TABS Take 150 Units by mouth [...] daily. 180 mg at hs 11/30/13 11/30/14 [facility] carlyn Mae MD docusate sodium (COLACE) [...] 100 mg by mouth nightly. Historical Provider bskqrbeob-mfqdqpjf-tkthwlnca hydroxide-simethicone Take 40 mLs by mouth daily [...] TID(AC) AND INJECT SUBCUTANEOUSLY PER SLIDING SC SUASN 1-70= 2U, 71-100=3U, 101-120= 4U, 121-150=5U, 151-180=6U, [...] on file Social History Narrative Lives in nursing home, IADL, full code Family History Problem Relation Age of Onset Heart disease Father Heart disease Sister Diabetes type II Sister Heart Problems Brother Review of Systems Constitutional: Positive for "light" fever Negative for chills Eyes: Negative for vision changes Nose: Negative for congestion, nosebleeds Throat: Negative for sore throat CV/Resp: Negative for chest pain, vrjwpelhe-mp-jsqocp, cough GI: Negative for abdominal pain, nausea, [...] a prompt return to the emergency department. Norah voiced understanding of the abo ve instructions [...] Value Ref Range Date/Time Comprehensive metabolic panel [[id number]] (Abnormal) Collected: 03/01/14944 Order Status: Completed Updated: [...] 65 U/L EGFR >60 >60 mL/min/1.73m2 BNP [[id number]] Collected: 03/01/14944 Order Status: Completed Updated: 03/01/141014 Specimen Information: Blood BRAIN NATRIURETIC PEPTIDE 6.9 0 - 100 pg/mL CBC with differential [[id number]] (Abnormal) Collected: 03/01/14944 Order Status: Completed Updated: [...] 1. No acute cardiopulmonary process. Narrative: NORAH Andrea SIMÓN 1955 58 years Male XR CHEST 2 [...] Details Comments Contact Info Jerrell Diego DO Discharge Medications: Discharge Medication List as of 03/01/2014 11:03 AM This chart has been created using [employer] Speech Recognition software. The chart has been [...] | | 2019 | Visit | | [address] | | | | | | [address] [place], | | | | | | [place] [address] | | | | | | [phone] | | | | | | | | +--------+---------+ + + + | 09/29/ | Office | Urology | Mireya Pack, | | | 2019 | Visit | | [address] | | | | | | [address] [place], | | | | | | [place] [address] | | | | | | [phone] | | | | | | | | | | | | Toy Wild, | | | | | | [address] | | | | | | [place] [address] | | | | | | [phone] | | | | | | | [...] EXTERNAL | | | | performed at [facility];[address] | | LAB | | | | [address];[place] | | | | | | [address] | | | | + + + + + + | Non- | 4.63Comment: Testing | 4.20 - 5.70 | EXTERNAL | | | Red Blood | performed at [facility];[address] | M/uL | LAB | | | Cells | [address];[place] | | | | | Counted | [address] | | | | + + + + + + | Hemoglobin | 11.8 (L)Comment: Testing | 13.2 - 17.0 | EXTERNAL | | | | performed at [facility];888 | g/dL | LAB | | | | [address];[place] | | | | | | [address] | | | | + + + + + + | Hematocrit, | 36.6 (L)Comment: Testing | 39.0 - 50.0 % | EXTERNAL | | | POC | performed at [facility];[address] | | LAB | | | | [address];[place] | | | | | | [address] | | | | + + + + + + | MCV | 79.1 (L)Comment: Testing | 80.0 - 100.0 fl | EXTERNAL | | | | performed at [facility];[address] | | LAB | | | | [address];[place] | | | | | | [address] | | | | + + + + + + | MCH | 25.5 (L)Comment: Testing | 27.0 - 34.0 pg | EXTERNAL | | | | performed at [facility];[address] | | LAB | | | | [address];[place] | | | | | | [address] | | | | + + + + + + | MCHC | 32.2Comment: Testing | 32.0 - 35.5 | EXTERNAL | | | | performed at [facility];888 | g/dL | LAB | | | | [address];[place] | | | | | | [address] | | | | + + + + + + | RDW-CV | 42.9Comment: Testing | 37 - 53 fl | EXTERNAL | | | | performed at [facility];[address] | | LAB | | | | [address];[place] | | | | | | [address] | | | | + + + + + + | Platelet | 261Comment: Testing | 150 - 400 K/uL | EXTERNAL | | | Count | performed at [facility];[address] | | LAB | | | Plasma | [address];[place] | | | | | | [address] | | | | + + + + + + | MPV | 7.4Comment: Testing | fl | EXTERNAL | | | | performed at [facility];[address] | | LAB | | | | [address];[place] | | | | | | [address] | | | | + + + + + + | Differentia | AUTOMATEDComment: | | EXTERNAL | | | l Type | Testing performed at | | LAB | | | | [facility];[address] | | | | [address];[place] [address] | | | | + + + + + + | % Segmented | 63.8Comment: Testing | % | EXTERNAL | | | | performed at [facility];[address] | | LAB | | | Neutrophils | [address];[place] | | | | | | [address] | | | | + + + + + + | % | 22.9Comment: Testing | % | EXTERNAL | | | Lymphocytes | performed at [facility];[address] | | LAB | | | | [address];[place] | | | | | | [address] | | | | + + + + + + | % Monocytes | 9.9Comment: Testing | % | EXTERNAL | | | | performed at [facility];[address] | | LAB | | | | [address];[place] | | | | | | [address] | | | | + + + + + + | % | 2.7Comment: Testing | % | EXTERNAL | | | Eosinophils | performed at [facility];[address] | | LAB | | | | [address];[place] | | | | | | [address] | | | | + + + + + + | % Basophils | 0.7Comment: Testing | % | EXTERNAL | | | | performed at [facility];[address] | | LAB | | | | [address];[place] | | | | | | [address] | | | | + + + + + + | Absolute | 5.2Comment: Testing | 1.9 - 7.4 K/uL | EXTERNAL | | | Segmented | performed at [facility];[address] | | LAB | | | Neutrophils | [address];[place] | | | | | | [address] | | | | + + + + + + | Absolute | 1.9Comment: Testing | 1.0 - 3.9 K/uL | EXTERNAL | | | Lymphocytes | performed at [facility];[address] | | LAB | | | | [address];[place] | | | | | | [address] | | | | + + + + + + | Absolute | 0.8Comment: Testing | 0 - 0.8 K/uL | EXTERNAL | | | Monocytes | performed at [facility];[address] | | LAB | | | | [address];[place] | | | | | | [address] | | | | + + + + + + | Absolute | 0.2Comment: Testing | 0 - 0.5 K/uL | EXTERNAL | | | Eosinophils | performed at [facility];[address] | | LAB | | | | [address];[place] | | | | | | [address] | | | | + + + + + + | Absolute | 0.1Comment: Testing | 0 - 0.1 K/uL | EXTERNAL | | | Basophils | performed at [facility];[address] | | LAB | | | | [address];[place], [place] | | | | | | [address] | | | | + + + [...] EXTERNAL | | | | performed at [facility] | | LAB | | | | [address];[place] | | | | | | [address] | | | | + + + [...] EXTERNAL | | | | performed at [facility];888 | mmol/L | LAB | | | | [address];[place] | | | | | | [address] | | | | + + + + + + | K | 3.9Comment: Testing | 3.5 - 4.9 | EXTERNAL | | | | performed at [facility];888 | mmol/L | LAB | | | | [address];[place] | | | | | | [address] | | | | + + + + + + | Cl | 108Comment: Testing | 99 - 109 mmol/L | EXTERNAL | | | | performed at [facility];[address] | | LAB | | | | [address];[place] | | | | | | [address] | | | | + + + + + + | CO2 | 28Comment: Testing | 23 - 32 mmol/L | EXTERNAL | | | | performed at [facility];[address] | | LAB | | | | [address];[place] | | | | | | [address] | | | | + + + + + + | Anion Gap | 10Comment: Testing | 5 - 20 mmol/L | EXTERNAL | | | | performed at [facility];[address] | | LAB | | | | [address];[place] | | | | | | [address] | | | | + + + + + + | Glucose, | 124 (H)Comment: Testing | 65 - 99 mg/dL | EXTERNAL | | | Fasting | performed at [facility];[address] | | LAB | | | | [address];[place] | | | | | | [address] | | | | + + + + + + | BUN | 17Comment: Testing | 8 - 25 mg/dL | EXTERNAL | | | | performed at [facility];[address] | | LAB | | | | [address];[place] | | | | | | [address] | | | | + + + + + + | Creatinine | 1.20Comment: Testing | 0.70 - 1.30 | EXTERNAL | | | | performed at [facility];888 | mg/dL | LAB | | | | [address];[place] | | | | | | [address] | | | | + + + + + + | BUN/Creatin | 14Comment: Testing | | EXTERNAL | | | ine Ratio | performed at [facility];[address] | | LAB | | | | [address];[place] | | | | | | [address] | | | | + + + + + + | Calcium | 8.8Comment: NOTE NEW | 8.5 - 10.5 | EXTERNAL | | | | REFERENCE RANGETesting | mg/dL | LAB | | | | performed at [facility];[address] | | | | | | [address];[place] | | | | | | [address] | | | | + + + + + + | Protein, | 6.8Comment: Testing | 6.3 - 8.2 g/dL | EXTERNAL | | | Total | performed at [facility];[address] | | LAB | | | | [address];[place] | | | | | | [address] | | | | + + + + + + | Albumin | 3.2 (L)Comment: Testing | 3.6 - 5.0 g/dL | EXTERNAL | | | | performed at [facility];[address] | | LAB | | | | [address];[place] | | | | | | [address] | | | | + + + + + + | Globulin | 3.6Comment: Testing | 1.3 - 4.9 g/dL | EXTERNAL | | | | performed at [facility];[address] | | LAB | | | | [address];[place] | | | | | | [address] | | | | + + + + + + | A/G Ratio | 0.9 (L)Comment: Testing | 1.0 - 2.4 | EXTERNAL | | | | performed at [facility];[address] | | LAB | | | | [address];[place] | | | | | | [address] | | | | + + + + + + | Bilirubin | 0.2Comment: Testing | 0.1 - 1.5 mg/dL | EXTERNAL | | | Total | performed at [facility];[address] | | LAB | | | | [address];[place] | | | | | | [address] | | | | + + + + + + | ALP, | 78Comment: Testing | 35 - 115 U/L | EXTERNAL | | | External | performed at [facility];[address] | | LAB | | | | [address];[place] | | | | | | [address] | | | | + + + + + + | AST | 14Comment: Testing | 10 - 45 U/L | EXTERNAL | | | | performed at [facility];[address] | | LAB | | | | [address];[place] | | | | | | [address] | | | | + + + + + + | ALT | 19Comment: Testing | 10 - 65 U/L | EXTERNAL | | | | performed at [facility];[address] | | LAB | | | | [address];[place] | | | | | | [address] | | | | + + + [...] at [facility];[address] [place] [address] | | | | | | Blvd;[place] [address] | | | | + + + [...] - 09/20/2018 10:29 PM PDT NORAH Andrea SIMÓN89 years MaleXR | | CHEST 2 VIEW [...]
--- OUTSIDE RECORDS SUMMARY | ~2019-09-09 | XMS | Encounter Summary ---
Demographics + + + | Address | [address] | | | [place] [address] | + + + | Home Phone [...] + | Sammi Kohler | ECON | [place] [address] | | + + + + + Care Team Providers + +------+ + | Care Executive Director Name | Role | Phone | + +------+ + PCP | Unavailable | + +------+ + Encounter Details +--------+ + + + + | Date | Type | Department | Care Team | Description | +--------+ + + + + | 09/27/ | Emergency | [facility] | Elmo Thorne | Acute URI; Midline | | 2015 | | [facility] | DO Kev[address] | low back pain | | | | EMERGENCY CENTER | [address] | without sciatica; | | | | [address] | [place] [address] | Elevated blood | | | | [place], [place] | [phone] | pressure; Acute | | | | [address] | | epigastric pain | | | | [phone] | | | +--------+ + + + [...] 09/27/14746 Date of Service: 09/27/14214 Status: Signed Fish Worm Grower: Elmo Thorne DO (Physician) [facility] Department of Emergency Medicine 7:47 AM History of Present Illness Patient Identification Kevyn Guzman is a 58 y.o. male. Patient information was obtained from patient, EMS personnel and past medical records. History/Exam limitations: none. 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 Past Surgical History [...] MD; Location: [facility] MAIN OR ; Service: Plastics; Laterality: Left; upper arm and upper back w/frozen section Esophagogastroduodenoscopy 03/03/2013 Procedure: ESOPHAGOGASTRODUODENOSCOPY; Surgeon: Howie Gibson MD; Location: [facility] ENDOSCOPY; S ervice: Gastroenterology; Laterality: N/A; Colonoscopy 03/04/2013 Procedure: COLONOSCOPY; Surgeon: Howei Gibson MD; Location: [facility] ENDOSCOPY; Service: Gastroe nterology; Laterality: N/A; Upper gastrointestinal endoscopy Skin biopsy Hernia repair 07/03/2013 Procedure: LAPAROSCOPIC - HERNIA - INCISIONAL; Surgeon: Jevon Vargas DO; Location: [facility]; Service: General; Laterality: N/A; Skin lesion excision Left 05/05/2014 Procedure: EXCISION - LESION - FROZEN SECTION; Surgeon: Sy Fierro MD; Location: [facility]; Service: Plastics; Laterality: Left; forearm Prior to Admission medications Medication Sig Start Date End Date Taking? Authorizing Provider Albuterol Sulfate (VENTOLIN HFA IN) Inhale 2 puffs into the lungs as needed. 108 mcg/act Historical Provider Norod-D-Rqtizcnttyyhq (BEANO) TABS Take 150 Units by mouth [...] 100 mg by mouth nightly. Historical Provider vjljhlcul-ipopigwz-msisrdeql hydroxide-simethicone Take 40 mLs by mouth daily [...] Lives alone x 1 wk, moved from [facility], , 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 2 [...] visit [address] [place] [address] [facility] [id number] [facility] Emergency Department If symptoms worsen [address] [facility] [id number] Discharge Medications: Discharge Medication List as of 09/27/2014 2:29 AM START taking these medications Details fluticasone (FLONASE) 50 MCG/ACT nasal 1 spray by Nasal route 2 (two) times daily as needed for Rhinitis (for sinus pressure)., Starting 09/27/2014, Until 09/27/15, Print Dr. Elmo Thorne DGill. Dictation software, Spondo, used which may contain error for similar [...] 09/27/14202 Date of Service: 09/27/14202 Status: Signed Fish Worm Grower: Ivonne Hernandez RN (Registered Nurse) Bed: 04 Expected date: Expected time: Means of arrival: Comments: 1723 docume nted in this encounter Plan of Treatment +--------+---------+ + + + | Date | Type | Specialty | Care Team | Description | +--------+---------+ + + + | 09/10/ | Office | Geriatric Medicine | Mireya Pack, | | | 2019 | Visit | | BEAM RACKER [address] | | | | | | [address] [place], | | | | | | [place] [address] | | | | | | [phone] | | | | | | | | +--------+---------+ + + + | 09/29/ | Office | Urology | Mireya Pack, | | | 2019 | Visit | | BEAM RACKER [address] | | | | | | [address] [place], | | | | | | [place] [address] | | | | | | [phone] | | | | | | | | | | | | Toy Wild, DO | | | | | | [address] | | | | | | [place] [address] | | | | | | [phone] | | | | | | | [...]
--- OUTSIDE RECORDS SUMMARY | ~2019-09-09 | XMS | Encounter Summary ---
Demographics + + + | Address | [address] | | | [place] [address] | + + + | Home Phone [...] Sammi Kohler | ECON | [place] [address] | | + + + + + Care Team Providers + +------+ + | Care Supervisor Yard Name | Role | Phone | [...] | | | [address] | [place] [address] | | | | | [place], [place] | [phone] | | | | | [address] | | | | | | [phone] | | | +--------+ + + + [...] | | 2019 | Visit | | INSTRUCTIONAL DEVELOPER [address] | | | | | | [address] [place] | | | | | | [place] [address] | | | | | | [phone] | | | | | | | | +--------+---------+ + + + | 09/29/ | Office | Urology | Mireya Pack, | | | 2019 | Visit | | INSTRUCTIONAL DEVELOPER [address] | | | | | | [address] [place] | | | | | | [place] [address] | | | | | | [phone] | | | | | | | | | | | | Toy Wild DO | | | | | | [address] | | | | | | [place] [address] | | | | | | [phone] | | | | | | | [...]
--- OUTSIDE RECORDS SUMMARY | ~2019-09-09 | XMS | Encounter Summary ---
Demographics + + + | Address | [address] | | | [place] [address] | + + + | Home Phone [...] Sammi Kohler | ECON | [place] [address] | | + + + + + Care Team Providers + +------+ + | Care Shoe Sticks Repairer Name | Role | Phone | [...] + + | 05/19/ | Documentati | [place] | Myriam Gary, | Other (POLST form) | | 2020 | on | [facility] [address] | Scrubber Operator | | | | | [address] | | | | | | [place] | | | | | | [address] | | | | | | [phone] | | | +--------+ + + + [...] | 2019 | Visit | | SUPERVISOR ASPHALT PAVING [address] | | | | | | [address] [place], | | | | | | [place] [address] | | | | | | [phone] | | | | | | | | +--------+---------+ + + + | 09/29/ | Office | Urology | Mireya Pack, | | | 2019 | Visit | | SUPERVISOR ASPHALT PAVING [address] | | | | | | [facility] [address] [place], | | | | | | [place] [address] | | | | | | [phone] | | | | | | | | | | | | Toy Wild, DO | | | | | | [address] | | | | | | [place] [address] | | | | | | [phone] | | | | | | | | +--------+---------+ + + + documented as of this encounter Visit Diagnoses Not on filedocumented in this encounter"
--- OUTSIDE RECORDS SUMMARY | ~2019-09-09 | XMS | Encounter Summary ---
Demographics + + + | Address | [address] [facility] [address] | | | [place] [address] | + + + | Home Phone [...] Sammi Kohler | ECON | [place] [address] | | + + + + + Care Team Providers + +------+ + | Care Family Court Registrar Name | Role | Phone | [...] | | | | | [place] | | | | | | [address] | | | | | | [phone] | | | +--------+ + + + [...] a VM. elephone Encounter - Myriam Gary Territory Sales Representative - 06/24/2019 11:46 AM PDTAttempted to call [...] Kevyn is calling. Please call him at [phone] documented in this encounter Plan of Treatment +--------+---------+ + + + | Date | Type | Specialty | Care Team | Description | +--------+---------+ + + + | 09/10/ | Office | Geriatric Medicine | Mireya Pack, | | | 2019 | Visit | | HYDRAULIC PRESS IN OPERATOR [address] | | | | | | [facility] [address] [place], | | | | | | [place] [address] | | | | | | [phone] | | | | | | | | +--------+---------+ + + + | 09/29/ | Office | Urology | Mireya Pack, | | | 2019 | Visit | | HYDRAULIC PRESS IN OPERATOR [address] | | | | | | [address] [place], | | | | | | [place] [address] | | | | | | [phone] | | | | | | | | | | | | Toy Wild, DO | | | | | | [address] | | | | | | [place] [address] | | | | | | [phone] | | | | | | | | +--------+---------+ + + + documented as of this encounter Visit Diagnoses Not on filedocumented in this encounter"
--- OUTSIDE RECORDS SUMMARY | ~2019-09-09 | XMS | Encounter Summary ---
Demographics + + + | Address | [address] | | | [place] [address] | + + + | Home Phone [...] Sammi Kohler | ECON | [place] [address] | | + + + + + Care Team Providers + +------+ + | Care Drier And Pulverizer Tender Name | Role | Phone | [...] + + | 12/01/ | Emergency | [facility] | Yamilka Reynaldo | Recurrent syncope | | 2019 | | MEDICAL CENTER | DO Robert [address] | (Primary Dx); | | | | EMERGENCY CENTER | [address] | Uncontrolled | | | | [address] | [place], [place] | hypertension | | | | [place] | [address] | | | | | [address] | [phone] | | | | | [phone] | | | +--------+ + + + [...] sent through Care Everywhere.Syncope, Treati ng: Prevention (Salvadorean)documented in this encounter Medications at Time of [...] + + +---------+ + + | [facility] [place]. MISC | For blood sugar | 200 [...] might be diff erent from the original. [facility] Department of Emergency Medicine Procedures No [...] (HCC) 10/14/2017 Anxiety ARF (acute renal failure) ([facility]) 03/02/2013 Atrial fibrillation (HCC) Basal cell carcinoma 09/26/2012 arm and back COPD (chronic obstructive pulmonary disease) ([facility]) 03/02/2013 hypoxemia on 2 lts nc Depression Development delay Diabetes mellitus type II DVT (deep venous thrombosis) ([facility]) 03/29/2018 Facial droop 07/08/2013 GIB (gastrointestinal bleeding) 03/02/[address] Nur, rectal ulcers, nodule of GE junction Hypercholesterolemia 07/08/2013 Hyperlipidemia 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 2 falls in the last 6 months. Family History Problem Relation Age of Onset Heart disease Father Heart disease Sister Diabetes, NIDDM Sister Other (see comment) Brother Heart Problems Review of Systems Constitutional: Negative for fever Eyes: Negative for vision changes Nose: Negative for congestion Throat: Negative for sore throat CV/Resp: Negative for chest pain, bdflnxodw-bi-elgfbd, cough Positive for palpitations, chest pain GI: [...] for food. She spoke to Eduardo the housing case manager. He is aware of the patient and [...] Date/Time Drugs Of ABuse Screen, Urine (H) [[id number]] Collected: 12/01/181108 Order Status: Completed Specimen: Urine, Clean Catch Updated: 12/01/18 1200 Amp/Methamphetamine, Screen, Urine NEGATIVE NEG Barbiturates Screen, Urine NEGATIVE NEG Benzodiazepines Screen, Urine NEGATIVE NEG Cocaine Metabolites, Ur NEGATIVE NEG Methadone Screen, Urine NEGATIVE NEG Opiates Screen, Urine NEGATIVE NEG Phencyclidine Screen, Urine NEGATIVE NEG Tetrahydrocannabinol(THC) NEGATIVE NEG Urinalysis With Microscopic [[id number]] (Abnormal) Collected: 12/01/181108 Order Status: Completed Specimen: Urine, Clean Catch Updated: 12/01/18 1154 Color, UA YELLOW Clarity, UA CLEAR Specific Council, Urine 1.023 1.002 - 1.030 Leukocyte esterase, [...] UA 1+ NONE MUCUS UA 1+ Ethanol [[id number]] Collected: 12/01/18933 Order Status: Completed Specimen: Blood Updated: 12/01/18 1009 ALCOHOL, SERUM/PLASMA <10 <10 mg/dL Troponin I [[id number]] Collected: 12/01/18933 Order Status: Completed Specimen: Blood Updated: 12/01/18 1009 Troponin I 0.021 0.00 - 0.04 ng/mL Comprehensive Metabolic Panel [[id number]] (Abnormal) Collected: 12/01/18933 Order Status: Completed Specimen: [...] Estimated GFR >60 >60 mL/min/1.73m2 Protime INR [[id number]] Collected: 12/01/18933 Order Status: Completed Specimen: Blood Updated: 12/01/18 1000 INR 1.0 CBC with Differential [[id number]] (Abnormal) Collected: 12/01/1834 Order Status: Completed Specimen: [...] - Primary Care Contact information: [address] [address] [facility]. Specialty: Emergency Medicine Why: If symptoms worsen Contact information: [address] [facility] [phone] Discharge Medications: Discharge Medication List as of 12/01/2018 15:00 Dictation software, Enhance[employer], used which may contain error for similar [...] | | 2019 | Visit | | LINEN GRADER [address] | | | | | | [address] [place], | | | | | | [place] [address] | | | | | | [phone] | | | | | | | | +--------+---------+ + + + | 09/29/ | Office | Urology | Mireya Pack, | | | 2019 | Visit | | LINEN GRADER [address] | | | | | | [address] [place], | | | | | | [place] [address] | | | | | | [phone] | | | | | | | | | | | | Toy Wild DO | | | | | | [address] | | | | | | [place] [address] | | | | | | [phone] | | | | | | | [...] | | | 2018 | | | 8:12 | | | [...] M?MRN: | | | | | | [id number] | | | [id number] | | | riteri | | | [...] | | [facility] [place] | | | [place] | | | [place] | | | [...] | | [facility] [place] | | | [place] | | | [place] | | | [...] | | s M.[place]. | | | [place] | | | [place] | | | [...] | | | | performed at [facility];[address] | | | | | | [facility];[place], [place] | | | | | | [address] | | | | + + + [...] | + + + + + | [facility] | [address] | [place] [address] | [phone] | + + + + + Urinalysis [...] - 1.030 | [facility] | | | Council, | | | LABORATORY | | | [...] | | Urine | performed at [facility];[address] | | LABORATORY | | | | [address];[place] | | | | | | [address] | | | | + + + [...] | + + + + + | [facility] | [address] | [place] [address] | [phone] | + + + + + CT [...] | disease. Signed by: Irina Gómez, Jae Sign Date/Time: | | | 12/01/2018 10:10 AM [...] thoracic spine. Signed by: Irina Gómez, Jae Sign | | | Date/Time: 12/01/2018 10:02 AM [...] | | | | | | [facility];[address] [facility] | | | | | | [facility];[place] [address] | | | | + + + + + + + + | Specimen | + + | Blood | + + + + + + + | Performing | Address | City/State/Zipcode | Phone Number | | Organization | | | | + + + + + | [facility] | [address] | [place] [address] | [phone] | + + + + + Ethanol (12/01/2018 9:34 AM PDT) + + + + + + | Component | Value | Ref Range | Performed | Pathologist | | | | | At | Signature | + + + + + + | ALCOHOL, | <10Comment: Testing | <10 mg/dL | [facility] | | | SERUM/PLASM | performed at [facility];[address] | | LABORATORY | | | A | [address];[place] | | | | | | [address] | | | | + + + + + + + + | Specimen | + + | Blood | + + + + + + + | Performing | Address | City/State/Zipcode | Phone Number | | Organization | | | | + + + + + | [facility] | [address] | [place] [address] | [phone] | + + + + + Protime [...] | | | | performed at [facility];[address] | | | | | | [address];[place], [place] | | | | | | [address] | | | | + + + + + + + + | Specimen | + + | Blood | + + + + + + + | Performing | Address | City/State/Zipcode | Phone Number | | Organization | | | | + + + + + | [facility] | [address] | [place] [address] | [phone] | + + + + + Comprehensive [...] | | | | performed at [facility];[address] | | | | | | [address];[place] | | | | | | [address] | | | | + + + + + + + + | Specimen | + + | Blood | + + + + + + + | Performing | Address | City/State/Zipcode | Phone Number | | Organization | | | | + + + + + | [facility] | [address] | [place] [address] | [phone] | + + + + + CBC [...] | | Absolute | performed at [facility];[address] | K/uL | LABORATORY | | | | [address];[place], [place] | | | | | | [address] | | | | + + + + + + + + | Specimen | + + | Blood | + + + + + + + | Performing | Address | City/State/Zipcode | Phone Number | | Organization | | | | + + + + + | [facility] | [address] [facility] | [place] [address] | [phone] | + + + + + ECG [...] | | | | | scientific editor FEDERICO ELDER | | | | | | [phone]) on 12/02/2018 | | | | | [...]
--- OUTSIDE RECORDS SUMMARY | ~2019-09-09 | XMS | Encounter Summary ---
Demographics + + + | Address | [address] | | | [place] [address] | + + + | Home Phone | | + + + | Preferred Language | Unknown | + + + | Marital Status | | + + + | Anabaptist Affiliation | [phone] | + + + [...] + | Samim Kohler | ECON | [place] [address] | | + + + + + Care Team Providers + +------+ + | Care Position Classification Specialist Name | Role | Phone | + +------+ + | Mik Diego DO | PCP | | + +------+ + Encounter Details +--------+ + + + + | Date | Type | Department | Care Team | Description | +--------+ + + + + | 11/01/ | Skilled | [facility] | Mireya Pack, | Type 2 diabetes | | 2019 | Nursing | [facility] [address] | PUMP MECHANIC [address] | mellitus with | | | Facility | [address] | [address] [place], | hyperglycemia, with | | | | [place], [place] | [place] [address] | long-term current | | | | [address] | [phone] | use of insulin (HCC) | | | | [phone] | | (Primary Dx); | | | [...] is a 62 y.o. male Resident of [facility] with a qualifying stay at [facility] from 10/11/18-10/16/18. Kevyn watson is a 62 [...] should. Patient was ruled out from having NH on serial cardiac enz ymes, blood pressures and blood sugars were better controlled, OT and PT [facility] and the patient was subsequently discharged to [facility]. Discharged to [facility] for PT/OT, medication management and snf. Past Medical History: Diagnosis Date Acute pulmonary embolism (HCC) 10/14/2017 Anxiety ARF (acute renal failure) ([facility]) 03/02/2013 Atrial fibrillation (HCC) Basal cell carcinoma 09/26/2012 arm and back COPD (chronic obstructive pulmonary disease) ([facility]) 03/02/2013 hypoxemia on 2 lts nc Depression Development delay Diabetes mellitus type II DVT (deep venous thrombosis) ([facility]) 03/29/2018 Facial droop 07/08/2013 GIB (gastrointestinal bleeding) 03/02/[address] Nur, rectal ulcers, nodule of GE junction Hypercholesterolemia 07/08/2013 Hyperlipidemia 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 Obesity, Class I, [...] DO; Location: [facility] MAIN OR; Service: General; Laterality: N/A; COLONOSCOPY COLONOSCOPY 03/04/2013 Procedure: COLONOSCOPY; Surgeon: Howie Gibson MD; Location: [facility] ENDOSCOPY; Service: Gastroen terology; Laterality: N/A; HERNIA REPAIR 07/03/2013 Procedure: LAPAROSCOPIC - HERNIA - INCISIONAL; Surgeon: Jevon Vargas DO; Location: [facility] MAIN OR; Service: General; Laterality: N/A; KNEE SURGERY rt knee, patella LEG SURGERY LLE OTHER SURGICAL HISTORY UNLISTED PROCEDURE ARTHROSCOPY OTHER SURGICAL HISTORY Left 05/05/2014 SKIN LESION EXCISION - Procedure: EXCISION - LESION - FROZEN SECTION; Surgeon: Sy murcia MD; Location: [facility] MAIN OR; Service: Plastics; Laterality: Left; forearm SKIN BIOPSY SKIN CANCER EXCISION Left 10/10/2012 Procedure: EXCISION - SKIN CANCER; Surgeon: Sy Fierro MD; Location: [facility] MAIN OR; Service: Plastics; Laterality: Left; upper arm and upper back w/frozen section UPPER GASTROINTESTINAL ENDOSCOPY UPPER GASTROINTESTINAL ENDOSCOPY 03/03/2013 Procedure: ESOPHAGOGASTRODUODENOSCOPY; Surgeon: Howie Gibson MD; Location: [facility] ENDOSCOPY; Se rvice: Gastroenterology; Laterality: N/A; [...] is feeling well, motivated to work with [employer] . Needs pcp and medications in bubble [...] 11.0 (H) 10/14/2018 No components found for: [id number], PTHINT No results found for: [id number] No results found for: TSH, T4 No [...] and prescriptions and discharge paperwork. Nikita Mendoza, [employer] - 11/01/2018 10:15 AM PDT BP (!) [...] PLT 218 10/16/2018 No results found for: [id number] No results found for: FOLATE No results found for: IRON, TIBC, FERRITIN No results found for: TSH, T4 No components found for: HGBA1C Lab Results Component Value Date CHOL 166 10/12/2018 TRIG 498 (H) 10/12/2018 HDL 26 (L) 10/12/2018 LDL LDL NOT VALID WHEN TRIG >400 mg/dL 10/12/2018 No components found for: [id number], PTHINT No results found for: DIGOXIN No results found for: URICACID documented in this encounter Plan of Treatment +--------+---------+ + + + | Date | Type | Specialty | Care Team | Description | +--------+---------+ + + + | 09/10/ | Office | Geriatric Medicine | Mireya Pack, | | | 2019 | Visit | | PUMP MECHANIC [address] | | | | | | [address] [place], | | | | | | [place] [address] | | | | | | [phone] | | | | | | | | +--------+---------+ + + + | 09/29/ | Office | Urology | Mireya Pack, | | | 2019 | Visit | | PUMP MECHANIC [address] | | | | | | [address] [place], | | | | | | [place] [address] | | | | | | [phone] | | | | | | | | | | | | Toy Wild, DO | | | | | | [address] | | | | | | [place] [address] | | | | | | [phone] | | | | | | | | +--------+---------+ + + + documented as of this encounter Visit Diagnoses + + | Diagnosis | + + | Type 2 diabetes mellitus with hyperglycemia, with long-term current use of insulin | | (HCC) - Primary | + + | Paroxysmal atrial fibrillation (HCC) Atrial fibrillation | + + | Essential hypertension Unspecified essential hypertension | + + documented in this encounter
--- OUTSIDE RECORDS SUMMARY | ~2019-09-09 | XMS | Encounter Summary ---
Demographics + + + | Address | [address] | | | [place] [address] | + + + | Home Phone [...] + | Sammi Kohler | ECON | [place] [address] | | + + + + + Care Team Providers + +------+ + | Care Dockworker Name | Role | Phone | + [...] | | | | | [address] | [place], | | | | | | [place], [place] | [place] [address] | | | | | | [address] | Phone: | | | | | | Phone: | [phone] | | | | | | [phone] | Fax: | | | | | | Fax: | [phone] | | | | | | [phone] | | +--------+ + + + + + Reason for Visit + +--------+ + | Reason | Onset | Comments | | | Date | | + +--------+ + | TITA - Bita KNOWLES | 01/07/ | | | | 2018 | | + +--------+ + Encounter Details +--------+ + + + + | Date | Type | Department | Care Team | Description | +--------+ + + + + | 01/07/ | Telephone | [facility] | Sanjuanita Rodriguez RN | [facility] | | 2018 | | INTERIOR MECHANIC | | | | | | MANAGEMENT [address] | | | | | | [address] | | | | | | [place] | | | | | | [address] | | | | | | [phone] | | | +--------+ + + + [...] Partial Hospitalization Eligible for TCM Billing LOS [id number]? No. Last patient discharge was 12/13/2018 with [...] to Medication Literacy: Were you able to shrimp picker your medications after discharge? Yes Reviewed [...] up needs. Provided office contact information, phone [phone] Of fice hours 0730 - 1500. Informant verbalized understanding. No learning barriers noted. documented in this enc ounter Plan of Treatment +--------+---------+ + + + | Date | Type | Specialty | Care Team | Description | +--------+---------+ + + + | 09/10/ | Office | Geriatric Medicine | Mireya Pack, | | 2019 | Visit | | BRUSH HEAD MAKER [address] | | | | | | [address] [place] [address], | | | | | | [place] [address] | | | | | | [phone] | | | | | | | | +--------+---------+ + + + | 09/29/ | Office | Urology | Mireya Pack, | | 2019 | Visit | | BRUSH HEAD MAKER [address] | | | | | | [address] [place], | | | | | | [place] [address] | | | | | | [phone] | | | | | | | | | | | | Toy Wild W, DO | | | | | | [address] | | | | | | [place] [address] | | | | | | [phone] | | | | | | | [...]
--- OUTSIDE RECORDS SUMMARY | ~2019-09-09 | XMS | Encounter Summary ---
Demographics + + + | Address | [address] | | | [place] [address] | + + + | Home Phone [...] Sammi Kohler | ECON | [place] [address] | | + + + + + Care Team Providers + +------+ + | Care Business Office Coordinator Name | Role | Phone | [...] + + | 05/06/ | Telephone | [facility] [place] | Lucia Amos | High Blood Sugar | | 2019 | | [facility] [address] | S RN | (Symptomatic) | | | | [address] | | | | | | [place] | | | | | | [address] | | | | | | [phone] | | | +--------+ + + + [...] | | 2019 | Visit | | STAGING TECHNICIAN [address] | | | | | | [address] [place], | | | | | | [place] [address] | | | | | | [phone] | | | | | | | | +--------+---------+ + + + | 09/29/ | Office | Urology | Mireya Pack, | | | 2019 | Visit | | STAGING TECHNICIAN [address] | | | | | | [address] [place], | | | | | | [place] [address] | | | | | | [phone] | | | | | | | | | | | | Toy Wild, DO | | | | | | [address] | | | | | | [place] [address] | | | | | | [phone] | | | | | | | | +--------+---------+ + + + documented as of this encounter Visit Diagnoses Not on filedocumented in this encounter"
--- OUTSIDE RECORDS SUMMARY | ~2019-09-09 | XMS | Encounter Summary ---
Demographics + + + | Address | [address] | | | [place] [address] | + + + | Home Phone [...] Sammi Kohler | ECON | [place] [address] | | + + + + + Care Team Providers + +------+ + | Care Tile And Marble Installer Name | Role | Phone | + [...] + + | 05/30/ | Telephone | [facility] | Myriam Gary, | Other (TCM call- ) | | 2019 | | [facility] [address] | Spool Tender | | | | | [address] | | | | | | [place], [place] | | | | | | [address] | | | | | | [phone] | | | +--------+ + + + [...] encounter Miscellaneous Notes Telephone Encounter - Myriam aGry, Spool Tender - 05/31/2019 1:16 PM PDTJluis justin reached patient via telephone. Offered virtual appt on 06/03 @ 400pm and he declined. D oes not know how he would set up for virtual visit regardless of offering to help step by st ep instructions. Patient states that he can do a telephonic visit and I will forward this me ssage to PCP to see if that would work. elephone Encounter - Myriam Gary Spool Tender - 05/31/2019 12:33 PM PDTAttempted to call patient, no answer left voicemail. Also called emergency contact, Kayleen and requested a call to see if she has a different # for patient to be reached. Awaiting call backs. elephone Encounter - Myriam Gary Medical As sistant - 05/31/2019 12:32 PM PDT----- Message from [...] | | 2019 | Visit | | POLICE DEPARTMENT SECRETARY [address] | | | | | | [address] [place], | | | | | | [place] [address] | | | | | | [phone] | | | | | | | | +--------+---------+ + + + | 09/29/ | Office | Urology | Mireya Pack, | | | 2019 | Visit | | POLICE DEPARTMENT SECRETARY [address] | | | | | | [address] [place], | | | | | | [place] [address] | | | | | | [phone] | | | | | | | | | | | | Toy Wild, | | | | | | [address] | | | | | | [place] [address] | | | | | | [phone] | | | | | | | | +--------+---------+ + + + documented as of this encounter Visit Diagnoses Not on filedocumented in this encounter"
--- OUTSIDE RECORDS SUMMARY | ~2019-09-09 | XMS | Encounter Summary ---
Demographics + + + | Address | [address] | | | [place] [address] | + + + | Home Phone [...] + | Sammi Kohler | ECON | [place] [address] | | + + + + + Care Team Providers + +------+ + | Care Cold Patcher Name | Role | Phone | + +------+ + PCP | Unavailable | + +------+ + Encounter Details +--------+ + + + + | Date | Type | Department | Care Team | Description | +--------+ + + + + | 10/13/ | Emergency | [facility] | Zach Tena, | Chest pain, | | 2013 | | [facility] | MD [address] | non-cardiac | | | | EMERGENCY CENTER | [place] [address] | | | | | [address] | [phone] | | | | | [place], [place] | | | | | | [address] | | | | | | [phone] | | | +--------+ + + + [...] ED Notes Conversion Transaction, Provider Unknown - 10/13/2013 1:25 PM PDTFormatting of this note m ight be different from the original. ED Notes by Shree Reilly RN at 10/13/13 1325 Author: Shree Reilly RN Service: (none) Author Type: Registered Nurse Filed: 10/13/13 1325 Date of Service: 10/13/13 1325 Status: Signed Clinical Sociologist: Shree Reilly RN (Registered Nurse) Transport to [facility] Shree Reilly RN 10/13/13 1325 onver ivana Transaction, Provider Unknown - 10/13/2013 1:00 PM PDT ED Notes by Shree Reilly RN at 10/13/13 1300 Author: Shree Reilly RN Service: (none) Author Type: Registered Nurse Filed: 10/13/13 1300 Date of Service: 10/13/13 1300 Status: Signed Clinical Sociologist: Shree Reilly RN (Registered Nurse) MD at bedside.Darinel Reilly RN 10/13/13 1300 immel Zach MD - 10/13/2013 12:59 PM PDTFormatting of this note might be different from the o riginal. ED Provider Notes by Zach Tena MD at 10/13/13 1259 Author: Zach Tena MD Service: (none) Author Type: Physician Filed: 10/19/13 0616 Date of Service: 10/13/13 1259 Status: Signed Clinical Sociologist: Zach Tena MD (Physician) [facility] Department of Emergency Medicine 12:59 PM History of Present Illness Patient Identification Norah Gr is a 57 y.o. male. Patient information was obtained from patient. History/Exam limitations: none. Patient presented to the Emergency Department by: Ambulance Chief Complaint Chief Complaint Patient presents with Chest Pain This is a 57 y.o. male with chief complaint of chest pain. Onset of symptoms was about 1 ho ur [employer], with a persistent course since that time. The symptoms are currently described to be of moderate severity. Other associated complaints include SOB, pain with inspiration, and l eft leg pain.The pt rates his pain a 6/10 and states it is located on the L side of his ches t. Pt is not complaining of any other symptoms at this time. Pt states he did not take Aspir in or NTG prior to arrival. Other significant factors in the PMH are noted and include: Anxiety PCP: JERRELL GUTIÉRREZ Past Medical History Diagnosis [...] Fierro MD; Location: [facility] MAIN OR ; Service: Plastics; Laterality: Left; upper arm and upper back w/frozen section Esophagogastroduodenoscopy 03/03/2013 Procedure: ESOPHAGOGASTRODUODENOSCOPY; Surgeon: Howie Gibson MD; Location: [facility] ENDOSCOPY; S ervice: Gastroenterology; Laterality: N/A; Colonoscopy 03/04/2013 Procedure: COLONOSCOPY; Surgeon: Howie Gibson MD; Location: [facility] ENDOSCOPY; Service: Gastroe nterology; Laterality: N/A; Upper gastrointestinal endoscopy Skin biopsy Hernia repair 07/03/2013 Procedure: LAPAROSCOPIC - HERNIA - INCISIONAL; Surgeon: Jevon Vargas DO; [facility] 2 a day) Historical Provider ARIPiprazole (ABILIFY) 15 MG tablet Take 15 [...] into the skin nightly. H istorical Provider mdfdoykkf-isymurth-gajekjjin hydroxide-simethicone Take 40 mLs by mouth daily [...] of Systems Respiratory: Positive for shortness of breath. Pain with inspiration Cardiovascular: Positive for chest pain. Musculoskeletal: L leg pain All other systems reviewed and are negative. Physical Exam BP 190/94 | Pulse 86 | Temp(Src) 97.9 F (36.6 C) (Oral) | Resp 16 | SpO2 94% Vitals: Hypertensive, otherwise normal Pulse Oximetry Interpretation: Hypoxemic General: Alert, in no acute distress, non-toxic [...] and Emergency Department Course ED Department Course 12:59 PM Pt presents to the ED complaining of chest pain. Exam is as noted above. I feel th at the list of possible emergent diagnoses that the patient requires an evaluation for inclu caryl (but is not limited to) pneumonia, atypical ACS, pneumothorax, pleural effusion, or PE. I believe that laboratory testing and further diagnostic testing is necessary to ensure that there is no acute emergent cause of the symptoms. Revised [place] Score Variable Score Age 65 years or over 0 Previous DVT or PE 0 Surgery or fracture within 1 month 0 Active malignant condition 0 Unilateral lower limb pain 3 Haemoptysis 0 Heart rate 75 to 94 beats per minute 3 Heart rate 95 or more beats per minute 0 Pain on deep palpation of lower limb and unilateral oedema 0 The score obtained relates to probability of PE: 0 - 3 points indicates low probability (8%) 4 - 10 points indicates intermediate probability (28%) 11 points or more indicates high probability (74%) 2:13 PM. Reviewed pts lab results. His D-dimer positive and his geneva score inticated inte rmediate risk. Will need to rule out PE. 4:30 PM. Pt recheck. Pt states he is experiencing back pain and slight chest pain. He state s he has an appointment with his diabetes doctor tomorrow. 4:35 PM. Had a timed repeat troponin which has not been done. Will have this done and then reevaluate pt. 5:35 PM. Reviewed repeat troponin level. Not remarkable. 5:40 PM. Pt recheck. Pt is stable and feeling much better at this time.Based upon the pt s history, physical exam, ED course, and diagnostic studies, I feel that there is no current emergent medical condition that warrants admission, transfer, or further ED treatment at is time. I have discussed my clinical impression and treatment plan with the pt. We have specificall y discussed the signs and symptoms that would constitute the need for an immediate return to the ED, the importance of continued outpatient f/u and the importance of compliance with e d/c instructions. I have answered any questions that the pt has to the best of my ability. Pt is ready for discharge. Medications sodium chloride 0.9 % flush 10 mL (not administered) morphine injection 4 mg (4 mg Intravenous Given 10/13/13 1523) aspirin chewable tablet 324 mg (324 mg Oral Given 10/13/13 1323) iopamidol (ISOVUE-370) 76 % injection 80 mL (100 mLs Intravenous Given 10/13/13 1458) Filed Vitals: 10/13/13 1254 10/13/13 1356 10/13/13 1525 BP: 174/94 190/94 180/86 Pulse: 95 86 84 Temp: 97.9 F (36.6 C) TempSrc: Oral Resp: 18 16 13 SpO2: 94% 92% Records Reviewed Old medical records. Nursing notes. Pt was seen on 10/[address] Hardy after a fall. He was seen in [facility]'s office on 10/09 and is scheduled for cardiac cath on 10/15 Pt was seen on 08/22 for chest pain. Pt had a series of negative troponins on 08/22, 08/23, 10/05. Pt had CT head, MRI brain, and US carotid in July. He had an echo and CT PE in May. His l ast stress test was in April. Laboratory Evaluation Results Procedure Component Value Ref Range Date/Time Troponin I, Lab [[id number]] Collected: 10/13/13 1656 Order Status: Completed Updated: 10/13/13 1727 Specimen Information: Blood TROPONIN I 0.024 0.00 - 0.10 ng/mL Comprehensive metabolic panel [[id number]] (Abnormal) Collected: 10/13/13 1256 Order Status: Completed Updated: 10/13/13 1351 SODIUM 142 135 - 143 mmol/L POTASSIUM 3.8 3.5 - 4.9 mmol/L CHLORIDE 105 99 - 109 mmol/L CO2 28 23 - 32 mmol/L ANION GAP AGAP 12 5 - 20 mmol/L GLUCOSE 214 (H) 65 - 99 mg/dL BUN 19 8 - 25 mg/dL CREATININE 1.08 0.70 - 1.30 mg/dL BUN/CREAT 17 CALCIUM 9.0 8.5 - 10.2 mg/dL TOTAL PROTEIN 7.5 6.3 - 8.2 g/dL Albumin 3.5 (L) 3.6 - 5.0 g/dL GLOBULIN 4.0 1.3 - 4.9 g/dL A/G 4.7 (H) 1.0 - 2.4 TBIL 0.3 0.1 - 1.5 mg/dL ALK PHOS 99 35 - 115 U/L AST 29 10 - 45 U/L ALT 30 10 - 65 U/L EGFR >60 >60 mL/min/1.73m2 Troponin I, Lab [[id number]] Collected: 10/13/131255 Order Status: Completed Updated: 10/13/13 1347 Specimen Information: Blood TROPONIN I <0.02 0.00 - 0.10 ng/mL Lipase [[id number]] Collected: 10/13/13 125 Order Status: Completed Updated: 10/13/13 1347 LIPASE 112 73 - 393 U/L D Dimer,Quantitative [[id number]] (Abnormal) Collected: 10/13/13 125 Order Status: Completed Updated: 10/13/13 1338 D DIMER, QUANTITATIVE 1.05 (H) 0.19 - 0.50 mg/L FEU Protime-INR [[id number]] Collected: 10/13/13 125 Order Status: Completed Updated: 10/13/13 1338 INR 1.0 CBC W/Auto Diff (Reflex to Manual) [[id number]] (Abnormal) Collected: 10/13/13 1256 Order Status: Completed Updated: 10/13/13 1329 WBC 10.4 3.8 - 11.0 K/uL RBC 5.24 4.20 - 5.70 M/uL HGB 14.3 13.2 - 17.0 g/dL HCT 41.6 39.0 - 50.0 % MCV 79.4 (L) 80.0 - 100.0 fl MCH 27.2 27.0 - 34.0 pg MCHC 34.3 32.0 - 35.5 g/dL RDW SD 41.1 37 - 53 fl PLT 316 150 - 400 K/uL MPV 7.6 fl DIFF TYPE AUTOMATED NEUTROPHILS 58.7 % LYMPHOCYTES 28.5 % MONOCYTES 9.9 % EOSINOPHILS 2.5 % BASOPHILS 0.4 % NEUTROPHILS ABS 6.1 1.9 - 7.4 K/uL LYMPHOCYTES ABS 3.0 1.0 - 3.9 K/uL MONOCYTES ABS 1.0 (H) 0 - 0.8 K/uL EOSINOPHILS ABS 0.3 0 - 0.5 K/uL BASOPHILS ABS 0.0 0 - 0.1 K/uL POC cardiac troponin [[id number]] Collected: 10/13/13 1257 Order Status: Completed Updated: 10/13/13 1311 POC CARDIAC TROPONIN 0.00 0.00 - 0.10 ng/mL I personally reviewed the lab results and they have been posted to the chart. Pertinent po sitive and negative findings have been addressed appropriately. Radiology and EKG Evaluation Imaging Results CT Chest PE Protocol (Final result) Result time: 10/13/13 15:33:35 Final result by Rad Results In Richard (10/13/13 15:33:35) Impression: 1. No acute findings in the chest. 2. No evidence of pulmonary emboli. Narrative: [facility] GR CT CHEST PULMONARY EMBOLISM W CONTRAST 10/13/2013 3:08 PM HISTORY: 57 years. Male. Shortness of breath. Assess for pulmonary embolism. TECHNIQUE: 1.5-mm axial images of the chest were acquired in the pulmonary arterial phase according to a CT angiography protocol. Coronal CT angiographic MIP reconstructions were performed. IV contrast: 66 mL IsoVue 370 COMPARISON: CT abdomen pelvis 06/05/2013, CT pulmonary embolism study 05/26/2013. FINDINGS: The thyroid shows no evidence of a solid or cystic mass. No bulky adenopathy is seen in the lower gordon stations of the neck, axillary regions, medi astinum or hilar regions. 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 No dissection, aneur ysm or stenosis is seen in the aorta or great vessels. The pulmonary arteries are normal in caliber. No intraluminal filling defects are seen to suggest the presence of pulmonary emboli. The heart is normal in size. No pericardial abnormality is noted. No filling defects are seen in the chambers of the heart to suggest clot or tumor. The coronary arteries arise fro m their usual cusps and are widely patent. The right and left main coronary arteries are co dominant. The lungs are well aerated. No acute airspace disease, parenchymal nodule, mass, pleural e ffusion or pneumothorax is noted. No bronchiectasis is seen. The thoracic esophagus is normal. No hiatal hernia is seen. The muscles of the chest are symmetric. No focal atrophy or soft tissue mass is seen. The osseous structures of the chest do not demonstrate lytic or blastic lesions. In the upper abdomen the visualized portions of the liver, spleen, pancreas, adrenal glands and kidneys are normal in size, position, contour and attenuation. No solid or cystic mass es are seen in these organs. No upper abdominal adenopathy is seen. The visualized portion s of the stomach and small bowel are normal. The patient is status post cholecystectomy. XR chest PA and lateral (Final result) Result time: 10/13/13 13:35:49 Final result by Rad Results In Richard (10/13/13 13:35:49) Impression: No evidence of acute disease or active process. Patient's symptoms not explained by this t echnique. Narrative: History: 57 year-old male with pain. Technique: Frontal and lateral radiographic examination of the chest. 22 August 2013, prior ladonna you for comparison. Findings: Cardiomediastinum is normal. Lungs are symmetrically inflated without pneumothorax, infiltrate, or effusion. Lungs are s omewhat hyperinflated with mild COPD changes, but stable. Bones and soft tissues are normal for age. Some confluent anterior thoracic osteophytosis, diffuse idiopathic skeletal hyperostosis EK Normal sinus rhythm. Rate: 88 BPM No ectopy or blocks. Intervals and segments are normal. No acute ST-T changes. EKG unchanged from 08/22/2013 Reviewed and interpreted by me independently and contemporaneously. Zach Tena ED Diagnosis Final diagnosis Chest pain, non-cardiac Disposition: ED Disposition Discharge Condition at discharge: Stable Follow-up Information Follow up With Details Comments Contact Info Jerrell Gross Jean-Claudesidney, DO In 2 days For follow up appointment [address] [facility] [address] [facility] Emergency Department If symptoms worsen [address] [facility] [address] Discharge Medications: Discharge Medication List as of 10/13/2013 6:04 PM Additional Documentation Procedures Attending Note: Documentation assistance provided by Divya Messer (Scribe). Information recorded by the scribe has been reviewed and validated by me. I aruna laughlin with its contents. MD Zach Church MD 10/19/13 0616 onversion Transacti on, Provider Unknown - 10/13/2013 12:48 PM PDTFormatting of this note might be different fro m the original. ED Notes by Kirill Hammond RN at 10/13/13 124 Author: Kirill Hammond RN Service: (none) Author Type: Extrusion Die Coordinator Filed: 10/13/13 1248 Date of Service: 10/13/131247 Status: Signed Clinical Sociologist: Kirill Hammond RN (Registered Nurse) Bed: 19 Expected date: 10/13/13 Expected time: 12:43 PM Means of arrival: Comments: docume nted in this encounter Plan of Treatment +--------+---------+ + + + | Date | Type | Specialty | Care Team | Description | +--------+---------+ + + + | 09/10/ | Office | Geriatric Medicine | Mireya Pack, | | | 2019 | Visit | | [facility] [address] | | | | | | [address] [place], | | | | | | [place] [address] | | | | | | [phone] | | | | | | | | +--------+---------+ + + + | 09/29/ | Office | Urology | Mireya Pack, | | | 2019 | Visit | | [facility] [address] | | | | | | [address] [place], | | | | | | [place] [address] | | | | | | [phone] | | | | | | | | | | | | Toy Wild, DO | | | | | | [address] | | | | | | [place] [address] | | | | | | [phone] | | | | | | | | +--------+---------+ + + + documented as of this encounter Procedures + +--------+ + + + | Procedure Name | Priori | Date/Time | Associated Diagnosis | Comments | | | ty | | | | + +--------+ + + + | TROPONIN I | Routin | 10/13/2013 | | Results for this | | | e | 4:56 PM | | procedure are in the | | | | PDT | | results section. | + +--------+ + + + | CT ANGIOGRAM | Routin | 10/13/2013 | | Results for this | | PULMONARY | e | 3:08 PM | | procedure are in the | | | | PDT | | results section. | + +--------+ + + + | XR CHEST 2 VIEWS | Routin | 10/13/2013 | | Results for this | | | e | 1:32 PM | | procedure are in the | | | | PDT | | results section. | + +--------+ + + + | EXTERNAL LAB: [facility]E | Routin | 10/13/2013 | | Results for this | | | e | 12:56 PM | | procedure are in the | | | | PDT | | results section. | + +--------+ + + + | TROPONIN I | Routin | 10/13/2013 | | Results for this | | | e | 12:56 PM | | procedure are in the | | | | PDT | | results section. | + +--------+ + + + | PROTIME INR | Routin | 10/13/2013 | | Results for this | | | e | 12:56 PM | | procedure are in the | | | | PDT | | results section. | + +--------+ + + + | D-DIMER | Routin | 10/13/2013 | | Results for this | | | e | 12:56 PM | | procedure are in the | | | | PDT | | results section. | + +--------+ + + + | LIPASE | Routin | 10/13/2013 | | Results for this | | | e | 12:56 PM | | procedure are in the | | | | PDT | | results section. | + +--------+ + + + | COMPREHENSIVE | Routin | 10/13/2013 | | Results for this | | METABOLIC PANEL | e | 12:56 PM | | procedure are in the | | | | PDT | | results section. | + +--------+ + + + | ECG 12 LEAD | Routin | 10/13/2013 | | Results for this | | | e | 12:53 PM | | procedure are in the | | | | PDT | | results section. | + +--------+ + + + documented in this encounter Results Troponin I (10/13/2013 4:56 PM PDT) + + + + + + | Component | Value | Ref Range | Performed | Pathologist | | | | | At | Signature | + + + + + + | Troponin I, | 0.024Comment: 0.00 to | 0.00 - 0.10 | [...] | | | | | performed at [facility];[address] | | | | | | [facility];[place], [place] | | | | | | [address] | | | | + + + [...] + + CT Angiogram Pulmonary w Contrast (10/13/2013 3:08 PM PDT) + + | Specimen | + + | | + + + + + | Impressions | Performed At | + + + | 1. No acute findings in the chest. 2. No evidence of pulmonary | | | emboli. | | | 3:33 PM | | + + + + + + | Narrative | Performed At | + + + | [facility] CT CHEST PULMONARY EMBOLISM W CONTRAST 10/13/2013 3:08 | | | PM HISTORY: 57 years. Male. Shortness of breath. Assess | | | for pulmonary embolism. TECHNIQUE: 1.5-mm axial images of the | | | chest were acquired in the pulmonary arterial phase according to a CT | | | angiography protocol. Coronal CT angiographic MIP reconstructions | | | were performed. IV contrast: 66 mL IsoVue 370 COMPARISON: CT | | | abdomen pelvis 06/05/2013, CT pulmonary embolism study 05/26/2013. | | | FINDINGS: The thyroid shows no evidence of a solid or cystic mass. | | | No bulky adenopathy is seen in the lower gordon stations of the | | | neck, axillary regions, mediastinum or hilar regions. A left-sided | | | aortic arch is noted with a 3 vessel arch configuration. No | | | dissection, aneurysm or stenosis is seen in the aorta or great | | | vessels. The pulmonary arteries are normal in caliber. No | | | intraluminal filling defects are seen to suggest the presence of | | | pulmonary emboli. The heart is normal in size. No pericardial | | | abnormality is noted. No filling defects are seen in the chambers of | | | the heart to suggest clot or tumor. The coronary arteries arise | | | from their usual cusps and are widely patent. The right and left | | | main coronary arteries are codominant. The lungs are well | | | aerated. No acute airspace disease, parenchymal nodule, mass, | | | pleural effusion or pneumothorax is noted. No bronchiectasis is | | | seen. The thoracic esophagus is normal. No hiatal hernia is | | | seen. The muscles of the chest are symmetric. No focal atrophy | | | or soft tissue mass is seen. The osseous structures of the chest | | | do not demonstrate lytic or blastic lesions. In the upper abdomen | | | the visualized portions of the liver, spleen, pancreas, adrenal glands | | | and kidneys are normal in size, position, contour and attenuation. | | | No solid or cystic masses are seen in these organs. No upper | | | abdominal adenopathy is seen. The visualized portions of the | | | stomach and small bowel are normal. The patient is status post | | | cholecystectomy. | | + + + + + | Procedure Note | + + | Richard, Rad Conversion - 09/21/2018 3:31 PM PDT [facility] CHEST PULMONARY | | EMBOLISM W CONTRAST10/13/2013 3:08 PM HISTORY:57 years. Male. Shortness of breath. | | Assess for pulmonary embolism. TECHNIQUE:1.5-mm axial images of the chest were acquired | | in the pulmonary arterial phase according to a CT angiography protocol. Coronal CT | | angiographic MIP reconstructions were performed.IV contrast: 66 mL IsoVue 370 | | COMPARISON:CT abdomen pelvis 06/05/2013, CT pulmonary embolism study 05/26/2013. | | FINDINGS:The thyroid shows no evidence of a solid or cystic mass. No bulky adenopathy is | | seen in the lower gordon stations of the neck, axillary regions, mediastinum or hilar | | regions. 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 No | | dissection, aneurysm or stenosis is seen in the aorta or great vessels. The pulmonary | | arteries are normal in caliber. No intraluminal filling defects are seen to suggest the | | presence of pulmonary emboli. The heart is normal in size. No pericardial abnormality | | is noted. No filling defects are seen in the chambers of the heart to suggest clot or | | tumor. The coronary arteries arise from their usual cusps and are widely patent. The | | right and left main coronary arteries are codominant. The lungs are well aerated. No | | acute airspace disease, parenchymal nodule, mass, pleural effusion or pneumothorax is | | noted. No bronchiectasis is seen. The thoracic esophagus is normal. No hiatal hernia | | is seen. The muscles of the chest are symmetric. No focal atrophy or soft tissue mass | | is seen. The osseous structures of the chest do not demonstrate lytic or blastic | | lesions. In the upper abdomen the visualized portions of the liver, spleen, pancreas, | | adrenal glands and kidneys are normal in size, position, contour and attenuation. No | | solid or cystic masses are seen in these organs. No upper abdominal adenopathy is seen. | | The visualized portions of the stomach and small bowel are normal. The patient is | | status post cholecystectomy. IMPRESSION: 1. No acute findings in the chest.2. No | | evidence of pulmonary emboli. | | 3:33 PM | |The lungs are well aerated. No acute airspace disease, parenchymal nodule, mass, pleural e ffusion or pneumothorax is noted. No bronchiectasis is seen. | | | |The thoracic esophagus is normal. No hiatal hernia is seen. | | | |The muscles of the chest are symmetric. No focal atrophy or soft tissue mass is seen. | | | |The osseous structures of the chest do not demonstrate lytic or blastic lesions. | | | |In the upper abdomen the visualized portions of the liver, spleen, pancreas, adrenal glands and kidneys are normal in size, position, contour and attenuation. No solid or cystic mass es are seen in these organs. No | |upper abdominal adenopathy is seen. | |The visualized portions of the stomach and small bowel are normal. The patient is status p ost cholecystectomy. | | | |IMPRESSION: | |1. No acute findings in the chest. | |2. No evidence of pulmonary emboli. | | | | | + + XR Chest 2 Vws (10/13/2013 1:32 PM PDT) + + | Specimen | [...] | lateral radiographic examination of the chest. 22 August 2013, prior | | | study for comparison. Findings: Cardiomediastinum is normal. | | | Lungs are symmetrically inflated without pneumothorax, infiltrate, or | | | effusion. Lungs are somewhat hyperinflated with mild COPD changes, but | | | stable. Bones and soft tissues are normal for age. Some confluent | | | anterior thoracic osteophytosis, diffuse idiopathic skeletal | | | hyperostosis | | + + + + ---------+ | Procedure Note | + ---------+ | Richard, Rad Conversion - 09/21/2018 3:31 PM PDT History: 57 year-old male with pain. | | Technique: Frontal and lateral radiographic examination of the chest. 22 August 2013, | | prior study for comparison. Findings: Cardiomediastinum is normal. Lungs are | | symmetrically inflated without pneumothorax, infiltrate, or effusion. Lungs are somewhat | | hyperinflated with mild COPD changes, but stable. Bones and soft tissues are normal for | | age. Some confluent anterior thoracic osteophytosis, diffuse idiopathic skeletal | | hyperostosis IMPRESSION: No evidence of acute disease or active process. Patient's | | symptoms not explained by this technique. | | | |IMPRESSION: | |No evidence of acute disease or active process. Patient's symptoms not explained by this te chnique. | | | | | + ---------+ Troponin I (10/13/2013 12:56 PM PDT) + + + + + [...] | | | | | performed at [facility];[address] | | | | | | [address];[place], [place] | | | | | | [address] | | | | + + + + + + + + | Specimen | + + | Blood specimen | | (specimen) | + + + +---------+ + + | Performing | Address | City/State/Zipcode | Phone Number | | Organization | | | | + +---------+ + + | EXTERNAL LAB | | | | + +---------+ + + Protime INR (10/13/2013 12:56 PM PDT) + + + + + [...] | | | | | performed at [facility];[address] | | | | | | [facility], [place] | | | | | | [address] | | | | + + + + + + + + | Specimen | + + | | + + + +---------+ + + | Performing | Address | City/State/Zipcode | Phone Number | | Organization | | | | + +---------+ + + | EXTERNAL LAB | | | | + +---------+ + + D-Dimer (10/13/2013 12:56 PM PDT) + + + + + + | Component | Value | Ref Range | Performed | Pathologist | | | | | At | Signature | + + + + + + | D-DIMER, | 1.05 (H)Comment: D Dimer | 0.19 - 0.50 [...] | | | | | performed at [facility];[address] | | | | | | [facility];[place], [place] | | | | | | [address] | | | | + + + + + + + + | Specimen | + + | | + + + +---------+ + + | Performing | Address | City/State/Zipcode | Phone Number | | Organization | | | | + +---------+ + + | EXTERNAL LAB | | | | + +---------+ + + External Lab: CBC (10/13/2013 12:56 PM PDT) + + + + + + | Component | Value | Ref Range | Performed | Pathologist | | | | | At | Signature | + + + + + + | WBC | 10.4Comment: Testing | 3.8 - 11.0 K/uL | EXTERNAL | | | | performed at [facility];[address] | | LAB | | | | [address];[place], [place] | | | | | | [address] | | | | + + + + + + | Non- | 5.24Comment: Testing | 4.20 - 5.70 | EXTERNAL | | | Red Blood | performed at [facility];[address] | M/uL | LAB | | | Cells | [address];[place] | | | | | Counted | [address] | | | | + + + + + + | Hemoglobin | 14.3Comment: Testing | 13.2 - 17.0 | EXTERNAL | | | | performed at [facility];[address] | g/dL | LAB | | | | [address];[place] | | | | | | [address] | | | | + + + + + + | Hematocrit, | 41.6Comment: Testing | 39.0 - 50.0 % | EXTERNAL | | | POC | performed at [facility];[address] | | LAB | | | | [address];[place] | | | | | | [address] | | | | + + + + + + | MCV | 79.4 (L)Comment: Testing | 80.0 - 100.0 fl | EXTERNAL | | | | performed at [facility];[address] | | LAB | | | | [address];[place] | | | | | | [address] | | | | + + + + + + | MCH | 27.2Comment: Testing | 27.0 - 34.0 pg | EXTERNAL | | | | performed at [facility];[address] | | LAB | | | | [address];[place] | | | | | | [address] | | | | + + + + + + | MCHC | 34.3Comment: Testing | 32.0 - 35.5 | EXTERNAL | | | | performed at [facility];[address] | g/dL | LAB | | | | [address];[place] | | | | | | [address] | | | | + + + + + + | RDW-CV | 41.1Comment: Testing | 37 - 53 fl | EXTERNAL | | | | performed at [facility];[address] | | LAB | | | | [address];[place] | | | | | | [address] | | | | + + + + + + | Platelet | 316Comment: Testing | 150 - 400 K/uL | EXTERNAL | | | Count | performed at [facility];[address] | | LAB | | | Plasma | [address];[place] | | | | | | [address] | | | | + + + + + + | MPV | 7.6Comment: Testing | fl | EXTERNAL | | | | performed at [facility];[address] | | LAB | | | | [address];[place] | | | | | | [address] | | | | + + + + + + | Differentia | AUTOMATEDComment: | | EXTERNAL | | | l Type | Testing performed at | | LAB | | | | [facility];[address];[place] [address] | | | | + + + + + + | % Segmented | 58.7Comment: Testing | % | EXTERNAL | | | | performed at [facility];[address] | | LAB | | | Neutrophils | [address];[place] | | | | | | [address] | | | | + + + + + + | % | 28.5Comment: Testing | % | EXTERNAL | | | Lymphocytes | performed at [facility];[address] | | LAB | | | | [address];[place] | | | | | | [address] | | | | + + + + + + | % Monocytes | 9.9Comment: Testing | % | EXTERNAL | | | | performed at [facility];[address] | | LAB | | | | [address];[place] | | | | | | [address] | | | | + + + + + + | % | 2.5Comment: Testing | % | EXTERNAL | | | Eosinophils | performed at [facility];[address] | | LAB | | | | [address];[place] | | | | | | [address] | | | | + + + + + + | % Basophils | 0.4Comment: Testing | % | EXTERNAL | | | | performed at [facility];[address] | | LAB | | | | [address];[place] | | | | | | [address] | | | | + + + + + + | Absolute | 6.1Comment: Testing | 1.9 - 7.4 K/uL | EXTERNAL | | | Segmented | performed at [facility];[address] | | LAB | | | Neutrophils | [address];[place] | | | | | | [address] | | | | + + + + + + | Absolute | 3.0Comment: Testing | 1.0 - 3.9 K/uL | EXTERNAL | | | Lymphocytes | performed at [facility];[address] | | LAB | | | | [address];[place] | | | | | | [address] | | | | + + + + + + | Absolute | 1.0 (H)Comment: Testing | 0 - 0.8 K/uL | EXTERNAL | | | Monocytes | performed at [facility];[address] | | LAB | | | | [address];[place] | | | | | | [address] | | | | + + + + + + | Absolute | 0.3Comment: Testing | 0 - 0.5 K/uL | EXTERNAL | | | Eosinophils | performed at [facility];[address] | | LAB | | | | [address];[place] | | | | | | [address] | | | | + + + + + + | Absolute | 0.0Comment: Testing | 0 - 0.1 K/uL | EXTERNAL | | | Basophils | performed at [facility];[address] | | LAB | | | | [address];[place] | | | | | | [address] | | | | + + + + + + + + | Specimen | + + | | + + + +---------+ + + | Performing | Address | City/State/Zipcode | Phone Number | | Organization | | | | + +---------+ + + | EXTERNAL LAB | | | | + +---------+ + + Lipase (10/13/2013 12:56 PM PDT) + + + + + + | Component | Value | Ref Range | Performed | Pathologist | | | | | At | Signature | + + + + + + | Lipase | 112Comment: Testing | 73 - 393 U/L | EXTERNAL | | | | performed at [facility];[address] | | LAB | | | | [address];[place], [place] | | | | | | [address] | | | | + + + + + + + + | Specimen | + + | | + + + +---------+ + + | Performing | Address | City/State/Zipcode | Phone Number | | Organization | | | | + +---------+ + + | EXTERNAL LAB | | | | + +---------+ + + Comprehensive Metabolic Panel (10/13/2013 12:56 PM PDT) + + + + + + | Component | Value | Ref Range | Performed | Pathologist | | | | | At | Signature | + + + + + + | Na | 142Comment: Testing | 135 - 143 | EXTERNAL | | | | performed at [facility];[address] | mmol/L | LAB | | | | [address];[place] | | | | | | [address] | | | | + + + + + + | K | 3.8Comment: Testing | 3.5 - 4.9 | EXTERNAL | | | | performed at [facility];[address] | mmol/L | LAB | | | | [address];[place] | | | | | | [address] | | | | + + + + + + | Cl | 105Comment: Testing | 99 - 109 mmol/L | EXTERNAL | | | | performed at [facility];[address] | | LAB | | | | [address];[place] | | | | | | [address] | | | | + + + + + + | CO2 | 28Comment: Testing | 23 - 32 mmol/L | EXTERNAL | | | | performed at [facility];[address] | | LAB | | | | [address];[place] | | | | | | [address] | | | | + + + + + + | Anion Gap | 12Comment: Testing | 5 - 20 mmol/L | EXTERNAL | | | | performed at [facility];[address] | | LAB | | | | [address];[place] | | | | | | [address] | | | | + + + + + + | Glucose, | 214 (H)Comment: Testing | 65 - 99 mg/dL | EXTERNAL | | | Fasting | performed at [facility];[address] | | LAB | | | | [address];[place] | | | | | | [address] | | | | + + + + + + | BUN | 19Comment: Testing | 8 - 25 mg/dL | EXTERNAL | | | | performed at [facility];[address] | | LAB | | | | [address];[place] | | | | | | [address] | | | | + + + + + + | Creatinine | 1.08Comment: Testing | 0.70 - 1.30 | EXTERNAL | | | | performed at [facility];[address] | mg/dL | LAB | | | | [address];[place] | | | | | | [address] | | | | + + + + + + | BUN/Creatin | 17Comment: Testing | | EXTERNAL | | | ine Ratio | performed at [facility];[address] | | LAB | | | | [address];[place] | | | | | | [address] | | | | + + + + + + | Calcium | 9.0Comment: Testing | 8.5 - 10.2 | EXTERNAL | | | | performed at [facility];[address] | mg/dL | LAB | | | | [address];[place] | | | | | | [address] | | | | + + + + + + | Protein, | 7.5Comment: Testing | 6.3 - 8.2 g/dL | EXTERNAL | | | Total | performed at [facility];[address] | | LAB | | | | [address];[place] | | | | | | [address] | | | | + + + + + + | Albumin | 3.5 (L)Comment: Testing | 3.6 - 5.0 g/dL | EXTERNAL | | | | performed at [facility];[address] | | LAB | | | | [address];[place] | | | | | | [address] | | | | + + + + + + | Globulin | 4.0Comment: Testing | 1.3 - 4.9 g/dL | EXTERNAL | | | | performed at [facility];[address] | | LAB | | | | [address];[place] | | | | | | [address] | | | | + + + + + + | A/G Ratio | 4.7 (H)Comment: Testing | 1.0 - 2.4 | EXTERNAL | | | | performed at [facility];[address] | | LAB | | | | [address];[place] | | | | | | [address] | | | | + + + + + + | Bilirubin | 0.3Comment: Testing | 0.1 - 1.5 mg/dL | EXTERNAL | | | Total | performed at [facility];[address] | | LAB | | | | [address];[place] | | | | | | [address] | | | | + + + + + + | ALP, | 99Comment: Testing | 35 - 115 U/L | EXTERNAL | | | External | performed at [facility];[address] | | LAB | | | | [address];[place] | | | | | | [address] | | | | + + + + + + | AST | 29Comment: Testing | 10 - 45 U/L | EXTERNAL | | | | performed at [facility];[address] | | LAB | | | | [address];[place] | | | | | | [address] | | | | + + + + + + | ALT | 30Comment: Testing | 10 - 65 U/L | EXTERNAL | | | | performed at [facility];[address] | | LAB | | | | [facility];[place] | | | | | | [address] | | | | + + + [...] | | | | | | at [facility];[address] [facility] | | | | | | [address];[place] [address] | | | | + + + + + + + + | Specimen | + + | | + + + +---------+ + + | Performing | Address | City/State/Zipcode | Phone Number | | Organization | | | | + +---------+ + + | EXTERNAL LAB | | | | + +---------+ + + ECG 12 lead (10/13/2013 12:53 PM PDT) + + + + + + | Component | Value | Ref Range | Performed | Pathologist | | | | | At | Signature | + + + + + + | DIAGNOSIS: | Normal sinus | | EXTERNAL | | | | rhythmProlonged | | LAB | | | | QTAbnormal ECGWhen | | | | | | compared with ECG of | | | | | | 22-AUG-2013 | | | | | | 19:44,Premature atrial | | | | | | [...] | | | | | ONLY, -COMPUTER ([id number]), | | | | | | website/blog editor Anshu Soliz | | | | | | (34) on 10/13/2013 4:11:25 | | | | | | PM [...] Diagnosis | + + | Chest pain, non-cardiac Other chest pain | + + documented in this encounter"
--- OUTSIDE RECORDS SUMMARY | ~2019-09-09 | XMS | Encounter Summary ---
Demographics + + + | Address | [address] | | | [place] [address] | + + + | Home Phone [...] Sammi Kohler | ECON | [place] [address] | | + + + + + Care Team Providers + +------+ + | Care [employer] Officer Name | Role | Phone | + +------+ + | Mik Diego DO | PCP | | + +------+ + Reason for Visit + + + | Reason | Comments | + + + | Evaluation Of | | | Abnormal Ekg | | + + + Encounter Details +--------+ + + + + | Date | Type | Department | Care Team | Description | +--------+ + + + + | 10/11/ | Hospital | [facility] | Ben, | Type 2 diabetes | | 2019 - | Encounter | [facility] | DO [address] | mellitus with | | | | [address] | [address] | hyperglycemia, with | | 10/16/ | | [place], [place] | [place] [address] | long-term current | | 2019 | | [address] | [phone] | use of insulin (HCC) | | | | [phone] | | (Primary Dx); | | | | | Patti Kelly DO | Syncope, unspecified | | | | | [address] | syncope type; Chest | | | | | [place] [address] | pain, unspecified | | | | | [phone] | type; Hypertension, | | | | | | unspecified type; | | | | | Natalia Olea MD | Chronic | | | | | [address] | anticoagulation; | | | | | [place] [address] | Other chest pain; | | | | | [phone] | Uncontrolled | | | | | | hypertension; | | | | | Agustín Box MD | Allergy history, | | | | | [address] | drug | | | | | [place] [address] | | | | | | [phone] | | | | | | | | | | | | Noble Conteh MD | | | | | | [address] [facility] | | | | | [place] [address] | | | | | | [phone] | | | | | | | | | | | | Norah Duron | | | | | | Osmar Andrea MD [address] | | | | [address] [place], [place] | | | | | | [address] | | | | | | | [...] + + + | Blood Pressure | 169/87 | 10/16/2018 2:15 PM | | | | | PDT | | + + + + + | Pulse | 83 | 10/16/2018 12:36 PM | | | | | PDT | | + + + + + | Temperature | 37 C (98.6 F) | 10/16/2018 12:36 PM | | | | | PDT | | + + + + + | Respiratory Rate | 22 | 10/16/2018 12:36 PM | | | | | PDT | | + + + + + | Oxygen Saturation | 95% | 10/16/2018 12:36 PM | | | | | PDT | | + + + + + | Inhaled Oxygen | - | - | | | Concentration | | | | + + + + + | Weight | 99.7 kg (219 lb 14.4 | 10/15/2018 3:51 AM | | | | oz) | PDT | | + + + + + | Height | 180.3 cm (5' 11") | 10/12/2018 2:55 AM | | | | | PDT | | + + + + + | Body Mass Index | 30.67 | 10/12/2018 2:55 AM | | | | | PDT [...] documented as of this encounter Discharge Summaries Norah Duron MD - 10/16/2018 11:33 AM PDTFormatting of this note might be diff erent from the original. Patient: Norah Guzman : 1955 Date of Admission: 10/11/2018 Date of Discharge: 10/16/2018 Discharging Provider: Norah Duron MD Discharge Diagnoses: Principal Problem: Other chest pain resolved Active Problems: Syncope Uncontrolled hypertension Type 2 diabetes mellitus with hyperglycemia Anxiety Chronic anticoagulation Procedures Performed: Chief Complaint: Evaluation Of Abnormal Ekg Hospital Course: Norah Guzman is a 62 y.o. male past medical history of developmental delay, COPD not on ho me O2, obstructive sleep apnea noncompliant with CPAP, anxiety, depression, chronic diarrhea , type 2 diabetes mellitus not well controlled and chronic anticoagulation and weakness who had not been taking his medications regularly as he had lost his PCP and was stretching out all of his medications who was admitted on 10/11/2018 with complaint of chest pain, near synco pe, and dyspnea, and uncontrolled hypertension and hyperglycemia, most likely secondary to h im that taking his medications as he should.. Patient was ruled out from having MD on seria l cardiac enzymes, blood pressures and blood sugars were better controlled, OT and PT saw th e patient recommended SNF and the patient was subsequently discharged to [place] [facility]. Discharge Exam and Data: Vital Signs: BP 169/78 | Pulse 74 | Temp 36.8 C (98.2 F) (Oral) | Resp 18 | Ht 1.803 m (5' 11") | Wt 99.7 kg (219 lb 14.4 oz) | SpO2 97% | BMI 30.67 kg/m BP 169/87 | Pulse 83 | Temp 37 C (98.6 F) (Oral) | Resp 22 | Ht 1.803 m (5' 11") | Wt 99.7 kg (219 lb 14.4 oz) | SpO2 95% | BMI 30.67 kg/m General Appearance: Alert, cooperative, no distress, appears stated age Head: Normocephalic, without obvious abnormality, atraumatic Eyes: PERRL, conjunctiva/corneas clear, EOM's intact, Ears: Normal external ear canals, both ears Nose: Nares normal, septum midline, mucosa normal, no drainage or sinus tenderness Throat: Lips, mucosa, and tongue normal; teeth and gums normal Neck: Supple, symmetrical, trachea midline, no adenopathy; thyroid: No enlargement/tenderness/nodules; no carotid bruit or JVD Back: Symmetric, no curvature, ROM normal, no CVA tenderness Lungs: Clear to auscultation bilaterally, respirations unlabored Chest wall: No tenderness or deformity Heart: Regular rate and rhythm, S1 and S2 normal, no murmur, rub or gallop Abdomen: Soft, non-tender, bowel sounds active all four quadrants, no masses, no organomegaly Extremities: Extremities normal, atraumatic, no cyanosis or edema Pulses: 2+ and symmetric all extremities Skin: Skin color, texture, turgor normal, no rashes or lesions Lymph nodes: Cervical, supraclavicular, and axillary nodes normal Neurologic: CNII-XII intact. Normal strength, sensation and reflexes throughout Recent Labs Recent Labs Lab 10/16/18 0358 WBC 11.12* HGB 15.3 HCT 44.5 PLT 218 Recent Labs Lab 10/16/18 0358 NA 139 K 3.7 CL 106 CO2 27 BUN 19 CALCIUM 8.3* No results for input(s): INR in the last 168 hours. Recent Radiology Results Xr Chest Pa And Lateral Result Date: 10/11/2018 CHEST PA AND LATERAL CLINICAL INFORMATION: Abnormal EKG. COMPARISON: XR CHEST PA AND LATERA L (10/10/2018); CTA CHEST PULMONARY EMBOLISM W CONTRAST (09/21/2018); XR CHEST 2 VIEW FRONTAL A ND LATERAL (09/21/2018); FINDINGS: Heart, lungs and vessels normal. No pneumothorax, pleural effusion or adenopathy. No significant bone abnormality. IMPRESSION: Negative chest. Signed by: Irina Donahue Gordon Sign Date/Time: 10/11/2018 10:[address] Head Wo Contrast Result Date: 10/12/2018 CT HEAD WITHOUT CONTRAST CLINICAL INFORMATION: Evaluation after an abnormal EKG. Fall lis ier today. Syncopal episode. COMPARISON: CT HEAD WO CONTRAST (10/10/2018); CT HEAD WO CONTRAS T (05/12/2018); CT HEAD WO CONTRAST (06/25/2016); PROCEDURE: Axial images were obtained through the head without IV contrast. Multiplanar reformations were obtained from the acquisition d kacy. At least one of the following CT dose optimization techniques were used: Automated expo sure control; Adjustment of mA and/or kV according to patient size; Use of iterative reconst ruction technique. FINDINGS: Brain: No intracranial hemorrhage, midline shift or pathologic mass effect. No cerebral edema, mass lesion, or evidence of acute infarct. Ventricles and ex tra-axial fluid spaces: Normal. Paranasal sinuses and mastoid air cells: Near total opacity of the frontal sinuses. Moderate ethmoid air cell mucosal thickening. Remaining paranasal s inuses and mastoid air cells are clear. Calvarium and extracranial soft tissues: Normal. Orb its: Imaged portions of the orbits are normal. Moderate debris/cerumen within the bilateral external auditory canals. IMPRESSION: No acute intracranial findings. No intracranial hemorr lilia, mass effect or edema. Signed by: Irina Atkinson Zachary Sign Date/Time: 10/12/2018 1:04 AM Vas Carotid Duplex Bilateral Result Date: 10/12/2018 CAROTID DUPLEX ULTRASOUND CLINICAL INFORMATION: Syncope. COMPARISON: US CAROTID DOPPLER KAREN ATERAL (05/30/2014); US CAROTID DOPPLER BILATERAL (12/02/2013); US CAROTID DOPPLER BILATERAL (07/08/2013); PROCEDURE: Evaluation of the extracranial carotid and vertebral arteries with pr oduction of real-time images integrating B-mode two-dimensional vascular structure, Doppler spectral analysis and color-flow Doppler imaging. FINDINGS: Peak systolic and diastolic velo cities measured in the common and internal carotid arteries. All velocities recorded in cm/s ec: Anterior Circulation: Right CCA: 60/0 ICA: 89/0 ECA: 229/6 ICA/CCA: 0.7 Left CCA: 85/6 I CA: 142 /12 ECA: 232/0 ICA/CCA: 1.7 Posterior Circulation: Right: Vertebral: 47/0 Antegrade Left: Vertebral: 55/4 Antegrade Morrissey scale images: Right: Mild calcified plaque is seen of t he carotid bulb extending into the proximal internal carotid artery. Left: Moderate calcifie d plaque is demonstrated of the carotid bulb. Calcification is noted extending into the prox imal internal carotid artery. Elevation in velocity of the proximal and distal left subclav fercho artery is noted. IMPRESSION: Right: Negative for hemodynamically significant stenosis. ( Less than 50% ICA stenosis. Primary parameters: Peak systolic ICA velocity < 125 cm/sec wit h carotid plaque or intimal thickening present. Secondary criteria: ICA/CCA ratio of <2 and ICA EDV < 40 cm/sec.) Left: Negative for hemodynamically significant stenosis. (Less than 5 0% ICA stenosis. Primary parameters: Peak systolic ICA velocity < 125 cm/sec with carotid p laque or intimal thickening present. Secondary criteria: ICA/CCA ratio of <2 and ICA EDV < 40 cm/sec.) Elevation in velocity of the left common carotid and subclavian artery that coul d reflect artifact from tortuosity versus inflow stenosis. Criteria based on society of radi ologists in ultrasound consensus criteria. Radiology. 2002;229(2):340-6. 2002Oct 24. Si gned by: Irina Ji, Kishan Sign Date/Time: 10/12/2018 2:47 PM Outstanding Issues: For the patient's diabetes is present well controlled his Lantus was increased to 55 units, patient will also have lispro 5 units with each meal, try to have a part controlled diet as well as continue with metformin. For his blood pressure that was not well controlled his Coreg was increased to 12.5 twice d aily, lisinopril was increased to 20 mg daily as well as hydralazine was added 25 mg 2 times daily. For his anxiety the patient can have 0.25 of Ativan as needed and try to get him weaned sasha n. For constipation docusate 100 mg daily. For pain acetaminophen as needed. Symbicort was changed to 1 puff twice daily. For the rest of his chronic medical conditions he can continue his previous home medication s at the same doses and frequencies. Discharge Information: Follow up: Discharge Procedure Orders Diet consistent carb; 60 gm CARB/Meal; fat and cholesterol modified Order Specific Question Answer Comments Type Diet consistent carb Carbohydrate restrictions 60 gm CARB/Meal Fat or cholesterol modifications fat and cholesterol modified Follow Up: With Primary MD in 1-2 Weeks with your new PCP on 10/23/2018 as sarah previously [address] [id number] Discharge Medications New Medications Details acetaminophen 325 mg tablet Take 2 tablets by mouth every 4 hours as needed for Pain (or fever >= 38.6 C (101.5 F)). aka: TYLENOL docusate sodium 100 mg capsule Take 1 capsule by mouth Twice daily as needed for Constipation. aka: COLACE hydrALAZINE 25 mg tablet Take 1 tablet by mouth 2 times daily. aka: APRESOLINE insulin lispro 100 units/mL injection (vial) Inject 5 Units under the skin 3 times daily (with meals). aka: humaLOG LORazepam 0.5 mg tablet Take 1 tablet by mouth 3 times daily as needed for Anxiety. aka: ATIVAN Changed Medications Details budesonide-formoterol 160-4.5 mcg/puff inhaler Inhale 2 puffs into the lungs 2 times daily. What changed: medication strength when to take this aka: SYMBICORT carvedilol 12.5 mg tablet Take 1 tablet by mouth 2 times daily (with breakfast & dinner). What changed: medication strength how much to take when to take this aka: COREG insulin aspart 100 units/mL injection pen Inject 12 Units under the skin 3 times daily (before meals). What changed: medication strength aka: NOVOLOG FLEXPEN insulin detemir 100 units/mL injection (pen) Inject 55 Units under the skin every morning. What changed: medication strength how much to take aka: LEVEMIR FLEXTOUCH lisinopril 10 mg tablet Take 2 tablets by mouth Daily. What changed: how much to take aka: PRINIVIL, ZESTRIL metFORMIN 500 mg tablet Take 1 tablet by mouth 2 times daily (with breakfast & dinner). What changed: when to take this aka: GLUCOPHAGE Unchanged Medications Details apixaban 5 mg tablet Take 1 tablet by mouth 2 times daily. aka: ELIQUIS ARIPiprazole 5 mg tablet Take 1 tablet by mouth Daily for 30 days. aka: ABILIFY aspirin 81 MG tablet Take 1 tablet by mouth Daily. fenofibrate 160 mg tablet Take 1 tablet by mouth Daily. NIFEdipine 60 MG 24 hr tablet Take 1 tablet by mouth Daily. aka: ADALAT CC Start: 10/17/2018 pravastatin 80 MG tablet Take 1 tablet by mouth nightly. aka: PRAVACHOL tamsulosin 0.4 mg Caps Take 1 capsule by mouth 2 times daily. aka: FLOMAX Disposition: [facility] Condition: Stable Code Status: Full Code Discharge medications reconciliation was completed by myself. I carefully reviewed all the medications with the patient. All the dosages was confirmed with the patient to the best o f patient's knowledge. I resumed most of patient's home medication after talking to the patient. I informed the p atient that, If you are not taking any of those medicines or if you think that dose is not right please talk to the primary care doctor for adjustment of doses and medications. Tammy bonilla take all the medication to your PCP and show him what medication you are taking so that he can adjust your medications if needed. An After Visit Summary was printed and given to the patient. Patient verbalized understanding, agreement, and compliance with discharge plan. Discharge took more than 35 minutes, to include final examination, discussion of admission , and preparation of prescriptions, instructions for on-going care, follow-up and documentat ion of discharge summary. Norah Duron MD 11:33 documented i n this encounter Medications at Time of Discharge [...] Take 1 tablet by | 60 | 1 | 10/17/19 | | | 5 mg tablet | mouth 2 times daily. | tablet | | 19 | 9 | + + + +---------+ + + | ARIPiprazole | Take 1 tablet by | 30 | 1 | 10/17/19 | | | (ABILIFY) 5 mg | mouth Daily for 30 | tablet | | 19 | 9 | | tablet | days. | | | | | + + + +---------+ + + | aspirin 81 MG | Take 1 tablet by | 30 | 1 | 10/17/19 | | | tablet | mouth Daily. | tablet | | 19 | 9 | + + + +---------+ + + | | Inhale 2 puffs into | 1 | 1 | 10/17/19 | | | budesonide-formotero | the lungs 2 times | Inhaler | | 19 | 9 | | l (SYMBICORT) | daily. | | | | | | 160-4.5 mcg/puff | | | | | | | inhaler | | | | | | + + + +---------+ + + | carvedilol (COREG) | Take 1 tablet by | 60 | 1 | 10/17/19 | | | 12.5 mg tablet | mouth 2 times daily | tablet | | 19 | 9 | | | (with breakfast & | | | | | | | dinner). | | | | | + + + +---------+ + + | docusate sodium | Take 1 capsule by | 30 | 1 | 10/17/19 | | | (COLACE) 100 mg | mouth Twice daily | capsule | | 19 | 9 | | capsule | as needed for | | | | | | | Constipation. | | | | | + + + +---------+ + + | fenofibrate 160 mg | Take 1 tablet by | 30 | 1 | 10/17/19 | | | tablet | mouth Daily. | tablet | | 19 | 9 | + + + +---------+ + + | hydrALAZINE | Take 1 tablet by | 60 | 1 | 10/17/19 | | | (APRESOLINE) 25 mg | mouth 2 times daily. | tablet | | 19 | 9 | | tablet | | | | | | + + + +---------+ + + | insulin aspart | Inject 12 Units | 2 pen | 1 | 10/17/19 | | | (NOVOLOG FLEXPEN) | under the skin 3 | | | 19 | 9 | | 100 units/mL | times daily (before | | | | | | injection pen | meals). | | | | | + + + +---------+ + + | insulin detemir | Inject 55 Units | 15 mL | 12 | 10/17/19 | | | (LEVEMIR FLEXTOUCH) | under the skin every | | | 19 | 9 | | 100 units/mL | morning. | | | | | | injection (pen) | | | | | | + + + +---------+ + + | insulin lispro | Inject 5 Units under | 10 mL | 1 | 10/17/19 | | | (HUMALOG) 100 | the skin 3 times | | | 19 | 9 | | units/mL injection | daily (with meals). | | | | | | (vial) | | | | | | + + + +---------+ + + | lisinopril | Take 2 tablets by | 30 | 1 | 10/17/19 | | | (PRINIVIL, ZESTRIL) | mouth Daily. | tablet | | 19 | 9 | | 10 mg tablet | | | | | | + + + +---------+ + + | LORazepam (ATIVAN) | Take 1 tablet by | 30 | 0 | 10/17/19 | | | 0.5 mg tablet | mouth 3 times daily | tablet | | 19 | 9 | | | as needed for | | | | | | | Anxiety. | | | | | + + + +---------+ + + | metFORMIN | Take 1 tablet by | 60 | 1 | 10/17/19 | | | (GLUCOPHAGE) 500 mg | mouth 2 times daily | tablet | | 19 | 9 | | tablet | (with breakfast & | | | | | | | dinner). | | | | | + + + +---------+ + + | NIFEdipine (ADALAT | Take 1 tablet by | 30 | 1 | 10/18/19 | | | CC) 60 MG 24 hr | mouth Daily. | tablet | | 19 | 9 | | tablet | | | | | | + + + +---------+ + + | pravastatin | Take 1 tablet by | 30 | 1 | 10/17/19 | | | (PRAVACHOL) 80 MG | mouth nightly. | tablet | | 19 | 9 | | tablet | | | | | | + + + +---------+ + + | tamsulosin | Take 1 capsule by | 60 | 1 | 10/17/19 | | | (FLOMAX) 0.4 mg CAPS | mouth 2 times daily. | capsule | | 19 | 9 | + + + +---------+ + + documented as of this encounter Progress Notes Kaylene Mayer RN - 10/16/2018 3:33 PM PDTDischarge packet sent w [facility] limousine driver . PIV x2 removed. No injury sustained from fall this afternoon. Kaylene Mayer RN Kaylene Hutson RN - 10/16/2018 2:25 PM PDTReport given to Eloina at [facility]. All questions answered. Kaylene Mayer RN Kaylene Hutson RN - 10/16/2018 12:49 PM PDTWitnessed fall at 1236 by Scallop Dredger. Pt was in doorway. We nt to take step backwards, fell on left hip, no head involvement. VS taken, BP 193/91, MAP 1 31, HR 83. Denies any pain on his left hip or anywhere else on body. Staff assist called, pt assisted up to standing position by 4 RNs back into bed. New BP taken after 10 mins. 179/81 , MAP 117. Notified Dr. Duron of this fall, see new orders. WCTM. Kaylene Mayer RN aylene Mayer RN - 10/15/2018 7:40 PM PDTEnd of shift chart review complete. Kaylene Mayer RN atalia Olea MD - 10/15/2018 3:39 PM PDT [facility] Service: Hospitalist Progress Note Hospital Day: LOS: 3 days SUBJECTIVE Patient Summary: From [facility] Dr. Kelly 10/11/18 The patient is a 62 y.o. male with significant past medical history of anxiety, depression, diarrhea, diabetes type 2, generalized weakness, chronic anticoagulation, developmentally d elayed, COPD, obstructive sleep apnea, noncompliant with CPAP, who presents with chest pain, hx of atrial fibrillation and syncope. Patient complains of syncope x 2. Onset was 11 hours ago, with improving course since that time. Patient describes the episode as weakness. Patient also has associated symptoms of no ne. The patient denies abdominal pain, excessive thirst, melena, nausea and tachycardia/palp itations. Taking culprit meds?: alpha blockers, beta blockers Per patient, black out twice ( previously told the RN x 4). He was sitting and believes he was out for 5-10 minutes Patient complains of chest pain. Onset was 10 hours ago, with improving course since that t silva. The patient describes the pain as intermittent, dull in nature, radiates to the left sh oulder and legs. Patient rates pain as a 7/10 in intensity. Associated symptoms are dyspnea . Aggravating factors are pushing on his chest, sneezed or cough. Alleviating factors are: none. Patient's cardiac risk factors are advanced age (older than 55 for men, 65 for women), dyslipidemia, hypertension, male gender, obesity (BMI >= 30 kg/m2) and sedentary lifestyle. Patient's risk factors for DVT/PE: none. Previous cardiac testing: nuclear stress negative . Patient ran out of Trefis 3 days ago Seen in the ER on October 10 for chest pain. Lab work remarkable for hyperglycemia and a n egative troponin. BP was as high as 219/114. 10/14/18 Patient appears comfortable. A&O x 3, though he has anxiety at times. Adequate POs. Vital remain stable. Chest pain has also resolved. Full cardiac workup x 2 due to chest pa in--all normal. Anxiety related. Blood sugars remain high. Patient states he has Not taken his home medications or insulin for 5 months because he is in between PCPs. He has appoint ment with new PCP Oct 23 that he is anxious to make.. Scheduled Medications apixaban 5 mg Oral BID ARIPiprazole 5 mg Oral Daily aspirin 81 mg Oral Daily budesonide-formoterol 2 puff Inhalation RT BID carvedilol 6.25 mg Oral BID WC hydrALAZINE 10 mg Oral BID insulin detemir 50 Units Subcutaneous QAM insulin lispro 0-18 Units Subcutaneous 4x Daily WC and HS insulin lispro 5 Units Subcutaneous TID WC lisinopril 20 mg Oral Daily NIFEdipine 60 mg Oral Daily pravastatin 80 mg Oral Nightly tamsulosin 0.4 mg Oral BID PRN Medications acetaminophen, Hypoglycemia Management AND POCT Glucose AND dextrose AND dextro se 10%, diphenhydrAMINE, HYDROmorphone, LORazepam, morphine, oxyCODONE, senna OBJECTIVE Vital Signs: BP 149/78 | Pulse 68 | Temp 36.6 C (97.9 F) (Oral) | Resp 18 | Ht 1.803 m (5' 11") | Wt 99.7 kg (219 lb 14.4 oz) | SpO2 95% | BMI 30.67 kg/m Patient Vitals for the past 24 hrs: BP Temp Temp src Pulse Resp SpO2 Weight 10/15/18 1202 149/78 36.6 C (97.9 F) Oral 68 18 10/15/18 1020 175/79 10/15/18 0809 157/72 80 10/15/18 0745 135/69 36.8 C (98.2 F) Oral 66 18 95 % 10/15/18 0351 120/62 36.7 C (98 F) Axillary 63 18 95 % 99.7 kg (219 lb 14.4 oz) 10/14/18 2337 104/53 36.9 C (98.4 F) Oral 67 20 10/14/182029 119/56 36.9 C (98.4 F) Oral 65 20 90 % 14:LAST:1 98 kg (10/11/18 181) Last: 99.7 kg (10/15/18350) Difference: 1.7kg Weight change: -0.363 kg (-12.8 oz) Intake/Output Summary (Last 24 hours) at 10/15/2018 1540 Last data filed at 10/15/2018 1203 Gross per 24 hour Intake 770 ml Output 1360 ml Net -590 ml Body mass index is 30.67 kg/m. Physical Exam Constitutional: He is oriented to person, place, and time. He appears well-developed and we ll-nourished. HENT: Head: Normocephalic and atraumatic. Eyes: Pupils are equal, round, and reactive to light. EOM are normal. No scleral icterus. Cardiovascular: Normal rate and regular rhythm. No murmur heard. Pulmonary/Chest: Effort normal and breath sounds normal. No stridor. No respiratory distres s. Abdominal: Soft. Bowel sounds are normal. He exhibits no distension. There is no tenderness . Musculoskeletal: He exhibits no edema. Neurological: He is alert and oriented to person, place, and time. Skin: Skin is warm and dry. Psychiatric: He has a normal mood and affect. Judgment normal. Nursing note and vitals reviewed. DATA Recent Labs 10/15/18 06 WBC 13.79* HGB 14.5 HCT 42.1 PLT 225 MCV 84.1 Recent Labs Lab 10/15/18 0612 10/12/18 0327 10/11/18 2142 10/10/18 1736 NA 139 137 136 140 K 3.8 4.0 3.5 3.9 CL 104 102 101 103 CO2 26 25 26 27 ANIONGAP 13 14 13 14 BUN 32* 25 20 12 CREA 0.9 1.1 1.18 1.16 CALCIUM 8.5 9.0 9.2 8.9 ALBUMIN -- 2.9* 3.8 3.9 ALKPHOS -- 125* 124* 128* ALT -- 25 19 22 AST -- 22 23 30 Recent Labs 10/15/18 0612 10/14/18 1515 10/14/18 1115 10/14/18 0501 GLU 261* 396* 444* 474* No results for input(s): TROPONIN, BNP in the last 72 hours. No results for input(s): PROTIME, INR, PTT in the last 168 hours. No results for input(s): IRON, TIBC, PCTSAT, FERRITIN, TSH, MEBPWFMB20, FOLATE in the last 168 hours. No results for input(s): LACTATE, PROCALCITONI, CRP, ESR in the last 168 hours. No results for input(s): AMYLASE, LIPASE in the last 168 hours. Recent Labs Lab 10/12/18 0327 TRIG 498* CHOL 166 HDL 26* LDL LDL NOT VALID WHEN TRIG >400 mg/dL No results for input(s): AMMONIA in the last 168 hours. Recent Results (from the past 360 hour(s)) CT Head wo Contrast Narrative CT HEAD WITHOUT CONTRAST CLINICAL INFORMATION: Headache. Left leg numbness. COMPARISON: CT HEAD WO CONTRAST (05/12/2018); CT HEAD WO CONTRAST (06/25/2016); MRI BRAIN WO AND MRA HEAD (06/16/2016); PROCEDURE: Axial images were obtained through [...] Normal. Paranasal sinuses and mastoid air cells: The paranasal sinuses demonstrate mucosal thickening and fluid in the frontal sinuses, anterior right ethmoid air cells and posterior left ethmoid air cells. A left-sided jerome bullosa is noted. The maxillary sinuses and sphenoid sinuses are normally aerated. The mastoid air cells are normally aerated. Bilateral cerumen impaction is seen in the external auditory canals. Calvarium and extracranial soft tissues: Normal. Orbits: Imaged portions of the orbits are normal. IMPRESSION: 1. No acute intracranial findings to explain left leg numbness. 2. Mucosal thickening seen in the frontal and ethmoid sinuses. The left frontal sinus in particular is completely opacified with fluid which may be a source of headache. Signed by: Staci Lau Edward Sign Date/Time: 10/10/2018 6:31 PM XR Chest PA and Lateral Narrative CHEST PA AND LATERAL CLINICAL INFORMATION: Chest pain. COMPARISON: CTA CHEST PULMONARY EMBOLISM W CONTRAST (09/21/2018); XR CHEST 2 VIEW FRONTAL AND LATERAL (09/21/2018); XR CHEST 2 VIEW FRONTAL AND LATERAL (09/16/2018); FINDINGS: Heart, lungs and vessels normal. No pneumothorax, pleural effusion or adenopathy. No significant bone abnormality. IMPRESSION: Negative chest. Signed by: Irina Wynne Peter Sign Date/Time: 10/10/2018 6:34 PM XR Chest PA and Lateral Narrative CHEST PA AND LATERAL CLINICAL INFORMATION: Abnormal EKG. COMPARISON: XR CHEST PA AND LATERAL (10/10/2018); CTA CHEST PULMONARY EMBOLISM W CONTRAST (09/21/2018); XR CHEST 2 VIEW FRONTAL AND LATERAL (09/21/2018); FINDINGS: Heart, lungs and vessels normal. No pneumothorax, pleural effusion or adenopathy. No significant bone abnormality. IMPRESSION: Negative chest. Signed by: Irina Donahue Gordon Sign Date/Time: 10/11/2018 10:[address] Head wo Contrast Narrative CT HEAD WITHOUT CONTRAST CLINICAL INFORMATION: Evaluation after an abnormal EKG. Fall earlier today. Syncopal episode. COMPARISON: CT HEAD WO CONTRAST (10/10/2018); CT HEAD WO CONTRAST (05/12/2018); CT HEAD WO CONTRAST (06/25/2016); PROCEDURE: Axial images were obtained through the [...] Normal. Paranasal sinuses and mastoid air cells: Near total opacity of the frontal sinuses. Moderate ethmoid air cell mucosal thickening. Remaining paranasal sinuses and mastoid air cells are clear. Calvarium and extracranial soft tissues: Normal. Orbits: Imaged portions of the orbits are normal. Moderate debris/cerumen within the bilateral external auditory canals. IMPRESSION: No acute intracranial findings. No intracranial hemorrhage, mass effect or edema. Signed by: Irina Atkinson Zachary Sign Date/Time: 10/12/2018 1:04 AM VAS Carotid Duplex Bilateral Narrative CAROTID DUPLEX ULTRASOUND CLINICAL INFORMATION: Syncope. COMPARISON: US CAROTID DOPPLER BILATERAL (05/30/2014); US CAROTID DOPPLER BILATERAL (12/02/2013); US CAROTID DOPPLER BILATERAL (07/08/2013); PROCEDURE: Evaluation of the extracranial carotid and vertebral arteries with production of real-time images integrating B-mode two-dimensional vascular structure, Doppler spectral analysis and color-flow Doppler imaging. FINDINGS: Peak systolic and diastolic velocities measured in the common and internal carotid arteries. All velocities recorded in cm/sec: Anterior Circulation: Right CCA: 60/0 ICA: 89/0 ECA: 229/6 ICA/CCA: 0.7 Left CCA: 85/6 ICA: 142 /12 ECA: 232/0 ICA/CCA: 1.7 Posterior Circulation: Right: Vertebral: 47/0 Antegrade Left: Vertebral: 55/4 Antegrade Morrissey scale images: Right: Mild calcified plaque is seen of the carotid bulb extending into the proximal internal carotid artery. Left: Moderate calcified plaque is demonstrated of the carotid bulb. Calcification is noted extending into the proximal internal carotid artery. Elevation in velocity of the proximal and distal left subclavian artery is noted. IMPRESSION: Right: Negative for hemodynamically significant stenosis. (Less [...] <2 and ICA EDV < 40 cm/sec.) Elevation in velocity of the left common carotid and subclavian artery that could reflect artifact from tortuosity versus inflow stenosis. Criteria based on society of radiologists in ultrasound consensus criteria. Radiology. 2003 Dec;229(2):340-6. 2002Oct 24. Signed by: Irina Ji Richard Sign Date/Time: 10/12/2018 2:47 PM XR Chest 1 Vw Narrative CHEST ONE VIEW CLINICAL INFORMATION: Chest pain. COMPARISON: XR CHEST PA AND LATERAL (10/11/2018); XR CHEST PA AND LATERAL (10/10/2018); CTA CHEST PULMONARY EMBOLISM W CONTRAST (09/21/2018); FINDINGS: Monitoring leads are present. Heart size is normal. There is slight blunting of the left costophrenic angle and minimal atelectasis is noted at the left lung base. Osseous structures are unremarkable. IMPRESSION: Minimal left costophrenic angle blunting and atelectasis left lung base. Signed by: Irina Oseguera Leslie Sign Date/Time: 10/13/2018 4:28 PM Imaging: Imaging Reviewed. PROBLEM LIST Principal Problem: Other chest pain Active Problems: Syncope Uncontrolled hypertension Type 2 diabetes mellitus with hyperglycemia Anxiety Chronic anticoagulation Resolved Problems: * No resolved hospital problems. * ASSESSMENT & PLAN Chest pain, intermittant -Troponis x 3--two full sets--have all been normal. EKG, no ST Elevation -complicated by anxiety -Atypical as it reproduces with palpation, however patient has multiple risk factors which included hypertension, dyslipidemia, diabetes, sedentary behavior. He has been off All medi cations for five months as he is in between PCPs. New appointment Oct 23. -On Nicardipine gtt. Until evening of 10/12/18. -Resumed home medications now with normal vitals -Records reviewed, last nuclear stress test on October 16, 2017 revealed no reversible de fects to suggest left ventricular ischemia -Will not do Nuc Med stress test at this time. -Admit Cardiac Enzymes x 3 with troponin have been normal. CP has resolved -Tylenol and pain medication as needed Syncope: -Unclear whether this is a true syncope or falling asleep -Unclear etiology -Differential diagnosis includes somatic dysfunction, arrhythmia, carotid sinus and deep ve in thrombosis, alcohol, dehydration, medications, neurocardiogenic or vasovagal -Telemetry showing no arrythemias -Echocardiogram ruled out valvular heart disease showed Normal size left ventricle. There is moderate increased left ventricular wall thickne ss. The left ventricular ejection fraction is 65%. There is normal left ventricular wa ll motion. Normal size right ventricle. Normal right ventricular systolic function. -CT brain --no intracranial finding or hemorrhage, mass effect or edema -Carotid ultrasounds --Right & Left--negative for significant stenosis -Orthostatic--normal -neuro checks have been normal -Continuous pulse ox remains normal -Fall precautions Malignant Hypertension: -Blood pressure as high as 254/139 most likely due to medical non-compliance -Initially started on Nitro gtt, however patient allergic. Stopped and started on Nifedipin e gtt. (allergy list now transitioned to new Epic alignment) Restarted Lisinopril, Coreg and Nifedipine. Coreg has been restarted. -Hydralazine added Type 2 diabetes mellitus with hyperglycemia: -Uncontrolled, blood glucose 293- <500 -Held oral anti-glycemic's -Resume long-acting insulin as per home dose, increased from 40 units to 50 units -Added 5 units with meals -Insulin sliding scale increased to high tier -clinical unit educator consult Anxiety: -Continue Abilify -Added Lorzepam Chronic anticoagulation: -For paroxysmal atrial fibrillation -Resumed Eliquis -Please give patient prescription for All medications as he ran out. PT/OT for SNIF Rehab placement Disposition: Code Status: Full Code Natalia Olea MD 10/15/2018 15:40 Rimma Pink RN - 10/15/2018 11:46 AM PDTCM/DCP to CM/DCP Referral placed to [facility] SW to SW To Do F/u on SNF referral Natalie Fowler RN - 10/15/2018 6:55 AM PDTAnswered patient call light, patient asks "Are you seeing those strings up on the ceiling fan and stuff? They're wiggling around and stuff." Patient was re oriented to objects in the room and then he states "Well I know that can't be true." He rem ains oriented to person, place, time, and situation. Kaylene Hutson RN - 10/14/2018 5:36 PM SHALONDAFotrace cathet er removed at 1730 for voiding trial, ok'd by Dr. Olea. Notified Dr. Olea of all gluco se checks >400. Pt stating that ativan has "helped w anxiety and chest pain" Kaylene Mayer RN apittara, Toney Calixto RN - 10/14/2018 6:54 AM PDTPt reports anxiety due to parents early demise, during episodes of chest pain. Pain managed with PRN pain meds, active listening, and aromatherapy. Patient was increased to medium sliding scale. Morning blood glucose needed a confirmation lab draw- 474. Hospitalist notified, 10 units given plus 5 of morning dose. Other VSS. [facility] TONEY DORADO RN Natalia Sullivan M D - 10/14/2018 6:11 AM PDT [facility] Service: Hospitalist Progress Note Hospital Day: LOS: 2 days SUBJECTIVE Patient Summary: From [facility] Dr. Kelly 10/11/18 The patient is a 62 y.o. male with significant past medical history of anxiety, depression, diarrhea, diabetes type 2, generalized weakness, chronic anticoagulation, developmentally d elayed, COPD, obstructive sleep apnea, noncompliant with CPAP, who presents with chest pain, hx of atrial fibrillation and syncope. Patient complains of syncope x 2. Onset was 11 hours ago, with improving course since that time. Patient describes the episode as weakness. Patient also has associated symptoms of no ne. The patient denies abdominal pain, excessive thirst, melena, nausea and tachycardia/palp itations. Taking culprit meds?: alpha blockers, beta blockers Per patient, black out twice ( previously told the RN x 4). He was sitting and believes he was out for 5-10 minutes Patient complains of chest pain. Onset was 10 hours ago, with improving course since that t silva. The patient describes the pain as intermittent, dull in nature, radiates to the left sh oulder and legs. Patient rates pain as a 7/10 in intensity. Associated symptoms are dyspnea . Aggravating factors are pushing on his chest, sneezed or cough. Alleviating factors are: none. Patient's cardiac risk factors are advanced age (older than 55 for men, 65 for women), dyslipidemia, hypertension, male gender, obesity (BMI >= 30 kg/m2) and sedentary lifestyle. Patient's risk factors for DVT/PE: none. Previous cardiac testing: nuclear stress negative . Patient ran out of Trefis 3 days ago Seen in the ER on October 10 for chest pain. Lab work remarkable for hyperglycemia and a n egative troponin. BP was as high as 219/114. 10/14/18 Patient appears comfortable. A&O x 3, though he has anxiety at time. Adequate POs. Vital remain stable. Chest pain has also resolved. Full cardiac workup yesterday due to kylee st pain. Scheduled Medications apixaban 5 mg Oral BID ARIPiprazole 5 mg Oral Daily aspirin 81 mg Oral Daily budesonide-formoterol 2 puff Inhalation RT BID carvedilol 6.25 mg Oral BID WC hydrALAZINE 10 mg Oral BID insulin detemir 50 Units Subcutaneous QAM insulin lispro 0-18 Units Subcutaneous 4x Daily WC and HS insulin lispro 5 Units Subcutaneous TID WC lisinopril 20 mg Oral Daily NIFEdipine 60 mg Oral Daily pravastatin 80 mg Oral Nightly tamsulosin 0.4 mg Oral BID PRN Medications acetaminophen, Hypoglycemia Management AND POCT Glucose AND dextrose AND dextro se 10%, diphenhydrAMINE, HYDROmorphone, LORazepam, morphine, oxyCODONE, senna OBJECTIVE Vital Signs: BP 143/65 | Pulse 71 | Temp 36.5 C (97.7 F) (Oral) | Resp 20 | Ht 1.803 m (5' 11") | Wt 100.1 kg (220 lb 11.2 oz) | SpO2 97% | BMI 30.78 kg/m Patient Vitals for the past 24 hrs: BP Temp Temp src Pulse Resp SpO2 Weight 10/14/18 1105 143/65 36.5 C (97.7 F) Oral 71 20 97 % 10/14/18 0801 138/63 74 10/14/18 0713 130/63 36.7 C (98 F) Oral 72 20 96 % 10/14/18 0346 108/57 36.6 C (97.9 F) Oral 66 18 95 % 100.1 kg (220 lb 11.2 oz) 10/14/18 0215 53 15 96 % 10/14/18 0200 110/58 53 17 97 % 10/14/18 0145 56 15 94 % 10/14/18 0130 54 16 95 % 10/14/18 0115 55 15 96 % 10/14/18 0100 107/65 55 19 95 % 10/14/18 0045 54 15 95 % 10/14/18 0030 59 14 97 % 10/14/18 0015 66 95 % 10/14/18 0000 117/57 60 17 96 % 10/13/18 2345 63 19 97 % 10/13/18 2330 114/58 65 21 100 % 10/13/18 2315 (!) 68/31 36.7 C (98 F) Oral 57 14 99 % 10/13/18 2300 59 22 98 % 10/13/18 2105 122/58 10/13/18 1913 125/58 36.6 C (97.8 F) Oral 70 18 91 % 10/13/18 1648 128/72 74 10/13/18 1619 126/62 36.3 C (97.4 F) Oral 63 18 97 % 14:LAST:1 98 kg (10/11/18 1811) Last: 100.1 kg (10/14/18 0346) Difference: 2.1kg Weight change: -0.891 kg (-1 lb 15.4 oz) Intake/Output Summary (Last 24 hours) at 10/14/2018 1203 Last data filed at 10/14/2018 1108 Gross per 24 hour Intake 1150 ml Output 3800 ml Net -2650 ml Body mass index is 30.78 kg/m. Physical Exam Constitutional: He is oriented to person, place, and time. He appears well-developed and we ll-nourished. Eyes: Pupils are equal, round, and reactive to light. EOM are normal. No scleral icterus. Cardiovascular: Normal rate and regular rhythm. Pulmonary/Chest: Effort normal and breath sounds normal. No stridor. No respiratory distres s. Abdominal: Soft. Bowel sounds are normal. He exhibits no distension. There is no tenderness . Musculoskeletal: He exhibits no edema. Neurological: He is alert and oriented to person, place, and time. Skin: Skin is warm and dry. Psychiatric: He has a normal mood and affect. Judgment normal. Nursing note and vitals reviewed. DATA Recent Labs 10/12/18 0327 10/11/18 2142 WBC 10.16 11.78* HGB 14.7 14.8 HCT 42.3 43.1 PLT 210 224 MCV 84.3 83.3 Recent Labs Lab 10/12/18 0327 10/11/18 2142 10/10/18 1736 NA 137 136 140 K 4.0 3.5 3.9 CL 102 101 103 CO2 25 26 27 ANIONGAP 14 13 14 BUN 25 20 12 CREA 1.1 1.18 1.16 CALCIUM 9.0 9.2 8.9 ALBUMIN 2.9* 3.8 3.9 ALKPHOS 125* 124* 128* ALT 25 19 22 AST 22 23 30 Recent Labs 10/14/18 1115 10/14/18 0501 10/13/18 1147 10/12/18 2116 GLU 444* 474* 485* 492* No results for input(s): TROPONIN, BNP in the last 72 hours. No results for input(s): PROTIME, INR, PTT in the last 168 hours. No results for input(s): IRON, TIBC, PCTSAT, FERRITIN, TSH, [id number], FOLATE in the last 168 hours. No results for input(s): LACTATE, PROCALCITONI, CRP, ESR in the last 168 hours. No results for input(s): AMYLASE, LIPASE in the last 168 hours. Recent Labs Lab 10/12/187 TRIG 498* CHOL 166 HDL 26* LDL LDL NOT VALID WHEN TRIG >400 mg/dL No results for input(s): AMMONIA in the last 168 hours. Recent Results (from the past 360 hour(s)) CT Head wo Contrast Narrative CT HEAD WITHOUT CONTRAST CLINICAL INFORMATION: Headache. Left leg numbness. COMPARISON: CT HEAD WO CONTRAST (05/12/2018); CT HEAD WO CONTRAST (06/25/2016); MRI BRAIN WO AND MRA HEAD (06/16/2016); PROCEDURE: Axial images were obtained through [...] Normal. Paranasal sinuses and mastoid air cells: The paranasal sinuses demonstrate mucosal thickening and fluid in the frontal sinuses, anterior right ethmoid air cells and posterior left ethmoid air cells. A left-sided jerome bullosa is noted. The maxillary sinuses and sphenoid sinuses are normally aerated. The mastoid air cells are normally aerated. Bilateral cerumen impaction is seen in the external auditory canals. Calvarium and extracranial soft tissues: Normal. Orbits: Imaged portions of the orbits are normal. IMPRESSION: 1. No acute intracranial findings to explain left leg numbness. 2. Mucosal thickening seen in the frontal and ethmoid sinuses. The left frontal sinus in particular is completely opacified with fluid which may be a source of headache. Signed by: Staci Lau Edward Sign Date/Time: 10/10/2018 6:31 PM XR Chest PA and Lateral Narrative CHEST PA AND LATERAL CLINICAL INFORMATION: Chest pain. COMPARISON: CTA CHEST PULMONARY EMBOLISM W CONTRAST (09/21/2018); XR CHEST 2 VIEW FRONTAL AND LATERAL (09/21/2018); XR CHEST 2 VIEW FRONTAL AND LATERAL (09/16/2018); FINDINGS: Heart, lungs and vessels normal. No pneumothorax, pleural effusion or adenopathy. No significant bone abnormality. IMPRESSION: Negative chest. Signed by: Irina Wynne Peter Sign Date/Time: 10/10/2018 6:34 PM XR Chest PA and Lateral Narrative CHEST PA AND LATERAL CLINICAL INFORMATION: Abnormal EKG. COMPARISON: XR CHEST PA AND LATERAL (10/10/2018); CTA CHEST PULMONARY EMBOLISM W CONTRAST (09/21/2018); XR CHEST 2 VIEW FRONTAL AND LATERAL (09/21/2018); FINDINGS: Heart, lungs and vessels normal. No pneumothorax, pleural effusion or adenopathy. No significant bone abnormality. IMPRESSION: Negative chest. Signed by: Irina Donahue Gordon Sign Date/Time: 10/11/2018 10:[address] Head wo Contrast Narrative CT HEAD WITHOUT CONTRAST CLINICAL INFORMATION: Evaluation after an abnormal EKG. Fall earlier today. Syncopal episode. COMPARISON: CT HEAD WO CONTRAST (10/10/2018); CT HEAD WO CONTRAST (05/12/2018); CT HEAD WO CONTRAST (06/25/2016); PROCEDURE: Axial images were obtained through the [...] Normal. Paranasal sinuses and mastoid air cells: Near total opacity of the frontal sinuses. Moderate ethmoid air cell mucosal thickening. Remaining paranasal sinuses and mastoid air cells are clear. Calvarium and extracranial soft tissues: Normal. Orbits: Imaged portions of the orbits are normal. Moderate debris/cerumen within the bilateral external auditory canals. IMPRESSION: No acute intracranial findings. No intracranial hemorrhage, mass effect or edema. Signed by: Irina Atkinson, Rhys Sign Date/Time: 10/12/2018 1:04 AM VAS Carotid Duplex Bilateral Narrative CAROTID DUPLEX ULTRASOUND CLINICAL INFORMATION: Syncope. COMPARISON: US CAROTID DOPPLER BILATERAL (05/30/2014); US CAROTID DOPPLER BILATERAL (12/02/2013); US CAROTID DOPPLER BILATERAL (07/08/2013); PROCEDURE: Evaluation of the extracranial carotid and vertebral arteries with production of real-time images integrating B-mode two-dimensional vascular structure, Doppler spectral analysis and color-flow Doppler imaging. FINDINGS: Peak systolic and diastolic velocities measured in the common and internal carotid arteries. All velocities recorded in cm/sec: Anterior Circulation: Right CCA: 60/0 ICA: 89/0 ECA: 229/6 ICA/CCA: 0.7 Left CCA: 85/6 ICA: 142 /12 ECA: 232/0 ICA/CCA: 1.7 Posterior Circulation: Right: Vertebral: 47/0 Antegrade Left: Vertebral: 55/4 Antegrade Morrissey scale images: Right: Mild calcified plaque is seen of the carotid bulb extending into the proximal internal carotid artery. Left: Moderate calcified plaque is demonstrated of the carotid bulb. Calcification is noted extending into the proximal internal carotid artery. Elevation in velocity of the proximal and distal left subclavian artery is noted. IMPRESSION: Right: Negative for hemodynamically significant stenosis. (Less [...] <2 and ICA EDV < 40 cm/sec.) Elevation in velocity of the left common carotid and subclavian artery that could reflect artifact from tortuosity versus inflow stenosis. Criteria based on society of radiologists in ultrasound consensus criteria. Radiology. 2003 Dec;229(2):340-6. 2002Oct 24. Signed by: Irina Ji Richard Sign Date/Time: 10/12/2018 2:47 PM XR Chest 1 Vw Narrative CHEST ONE VIEW CLINICAL INFORMATION: Chest pain. COMPARISON: XR CHEST PA AND LATERAL (10/11/2018); XR CHEST PA AND LATERAL (10/10/2018); CTA CHEST PULMONARY EMBOLISM W CONTRAST (09/21/2018); FINDINGS: Monitoring leads are present. Heart size is normal. There is slight blunting of the left costophrenic angle and minimal atelectasis is noted at the left lung base. Osseous structures are unremarkable. IMPRESSION: Minimal left costophrenic angle blunting and atelectasis left lung base. Signed by: Irina Oseguera Leslie Sign Date/Time: 10/13/2018 4:28 PM Imaging: Imaging Reviewed. PROBLEM LIST Principal Problem: Other chest pain Active Problems: Syncope Uncontrolled hypertension Type 2 diabetes mellitus with hyperglycemia Anxiety Chronic anticoagulation Resolved Problems: * No resolved hospital problems. * ASSESSMENT & PLAN Chest pain, intermittant -Troponis x 3--repeat set yesterday were normal. EKG, no ST Elevation -Atypical as it reproduces with palpation, however patient has multiple risk factors which include hypertension, dyslipidemia, diabetes, sedentary behavior -On Nicardipine gtt. Until evening of 10/12/18. -Resumed home medications now with normal vitals -Records reviewed, last nuclear stress test on October 16, 2017 revealed no reversible de fects to suggest left ventricular ischemia -Will not do Nuc Med stress test at this time. -Admit Cardiac Enzymes x 3 with troponin have been normal. CP resolved -Tylenol and pain medication as needed Syncope: -Unclear whether this is a true syncope or falling asleep -Unclear etiology -Differential diagnosis includes somatic dysfunction, arrhythmia, carotid sinus and deep ve in thrombosis, alcohol, dehydration, medications, neurocardiogenic or vasovagal -Telemetry showing no arrythemias -Echocardiogram to ruled out valvular heart disease showed Normal size left ventricle. There is moderate increased left ventricular wall thickne ss. The left ventricular ejection fraction is 65%. There is normal left ventricular wa ll motion. Normal size right ventricle. Normal right ventricular systolic function. -CT brain --no intracranial finding or hemorrhage, mass effect or edema -Carotid ultrasounds --Right & Left--negative for significant stenosis -Orthostatic--normal -neuro checks have been normal -Continuous pulse ox remains normal -Fall precautions Malignant Hypertension: -Blood pressure as high as 254/139 -Initially started on Nitro gtt, however patient allergic. Stopped and started on Nifedipin e gtt. (allergy list now transitioned to new Epic alignment) -Report compliance with medication patient is on Nifedipine and Coreg. Restarted Lisinopril and Nifedipine. Coreg has been restarted. -Hydralazine added Type 2 diabetes mellitus with hyperglycemia: -Uncontrolled, blood glucose 293- <500 -Held oral anti-glycemic's -Resume long-acting insulin as per home dose, increased from 40 units to 50 units -Added 5 units with meals -Insulin sliding scale increased to high tier Anxiety: -Continue Abilify -Added Lorzepam Chronic anticoagulation: -For paroxysmal atrial fibrillation -Resumed Eliquis -Please give patient a prescription for Eliquis at discharge, as he ran out. Disposition: Code Status: Full Code Natalia Olea MD 10/14/2018 12:03 Genna Beckman RN - 10/13/2018 5:37 PM PDTPt VS stable and asymptomatic. 1 confirmation glucose was drawn aroun d 1200. Insulin given as ordered. Pt now on 5L NC and complains of 7/10 chest pain. Pt asymp tomatic and pressures and HR stable. Dr notified of pt complaint. Tropin 3 ordered, EKG and pt pain medication regimine changed to IV dilaudid and 5-10mg PO oxycodone. Pt stable throug hout shift and urine is quantity sufficient. Chart check complete. Genna Cross RN Natalia Sullivan MD - 10/13/2018 2:29 PM PDT [facility] Service: Hospitalist Progress Note Hospital Day: LOS: 1 day SUBJECTIVE Patient Summary: From [facility] Dr. Kelly 10/11/18 The patient is a 62 y.o. male with significant past medical history of anxiety, depression, diarrhea, diabetes type 2, generalized weakness, chronic anticoagulation, developmentally d elayed, COPD, obstructive sleep apnea, noncompliant with CPAP, who presents with chest pain, hx of atrial fibrillation and syncope. Patient complains of syncope x 2. Onset was 11 hours ago, with improving course since that time. Patient describes the episode as weakness. Patient also has associated symptoms of no ne. The patient denies abdominal pain, excessive thirst, melena, nausea and tachycardia/palp itations. Taking culprit meds?: alpha blockers, beta blockers Per patient, black out twice ( previously told the RN x 4). He was sitting and believes he was out for 5-10 minutes Patient complains of chest pain. Onset was 10 hours ago, with improving course since that t silva. The patient describes the pain as intermittent, dull in nature, radiates to the left sh oulder and legs. Patient rates pain as a 7/10 in intensity. Associated symptoms are dyspnea . Aggravating factors are pushing on his chest, sneezed or cough. Alleviating factors are: none. Patient's cardiac risk factors are advanced age (older than 55 for men, 65 for women), dyslipidemia, hypertension, male gender, obesity (BMI >= 30 kg/m2) and sedentary lifestyle. Patient's risk factors for DVT/PE: none. Previous cardiac testing: nuclear stress negative . Patient ran out of Trefis 3 days ago Seen in the ER on October 10 for chest pain. Lab work remarkable for hyperglycemia and a n egative troponin. BP was as high as 219/114. 10/13/18 Patient appears comfortable. A&O x 3. Adequate POs. Vital were stable. Chest pain h as also resolved. Scheduled Medications apixaban 5 mg Oral BID ARIPiprazole 5 mg Oral Daily aspirin 81 mg Oral Daily budesonide-formoterol 2 puff Inhalation RT BID carvedilol 6.25 mg Oral BID WC hydrALAZINE 10 mg Oral BID insulin detemir 40 Units Subcutaneous QAM insulin lispro 0-6 Units Subcutaneous 4x Daily WC and HS insulin lispro 5 Units Subcutaneous TID WC lisinopril 20 mg Oral Daily NIFEdipine 60 mg Oral Daily pravastatin 80 mg Oral Nightly tamsulosin 0.4 mg Oral BID PRN Medications acetaminophen, Hypoglycemia Management AND POCT Glucose AND dextrose AND dextro se 10%, morphine, senna OBJECTIVE Vital Signs: BP 138/61 | Pulse 71 | Temp 36.7 C (98.1 F) (Oral) | Resp 18 | Ht 1.803 m (5' 11") | Wt 101 kg (222 lb 10.6 oz) | SpO2 93% | BMI 31.06 kg/m Patient Vitals for the past 24 hrs: BP Temp Temp src Pulse Resp SpO2 Weight 10/13/18 1129 138/61 36.7 C (98.1 F) Oral 71 18 93 % 10/13/18 0837 142/66 77 10/13/18 0710 127/59 36.8 C (98.2 F) 71 18 96 % 10/13/18 0300 136/68 36.9 C (98.4 F) Oral 70 20 95 % 101 kg (222 lb 10.6 oz) 10/12/18 2306 114/56 36.9 C (98.4 F) Oral 72 18 93 % 10/12/18 1940 155/64 36.3 C (97.4 F) Axillary 90 18 92 % 10/12/18 1755 178/86 88 10/12/18 1700 161/77 81 17 96 % 10/12/18 1626 115/59 10/12/18 1600 112/56 82 18 94 % 10/12/18 1550 118/58 37 C (98.6 F) Axillary 85 18 90 % 10/12/18 1530 112/58 85 17 10/12/18 1515 147/72 82 19 94 % 10/12/18 1500 149/70 84 18 94 % 10/12/18 1445 148/60 80 18 14:LAST:1 98 kg (10/11/18 181) Last: 101 kg (10/13/18 0300) Difference: 3kg Weight change: 3 kg (6 lb 9.8 oz) Intake/Output Summary (Last 24 hours) at 10/13/2018 1431 Last data filed at 10/13/2018 0917 Gross per 24 hour Intake 900 ml Output 3800 ml Net -2900 ml Body mass index is 31.06 kg/m. Physical Exam Constitutional: He is oriented to person, place, and time. He appears well-developed and we ll-nourished. Eyes: Pupils are equal, round, and reactive to light. EOM are normal. No scleral icterus. Cardiovascular: Normal rate and regular rhythm. Pulmonary/Chest: Effort normal and breath sounds normal. No stridor. No respiratory distres s. He has no wheezes. Abdominal: Soft. Bowel sounds are normal. Musculoskeletal: He exhibits no edema. Neurological: He is alert and oriented to person, place, and time. Skin: Skin is warm and dry. Psychiatric: He has a normal mood and affect. Judgment normal. Nursing note and vitals reviewed. DATA Recent Labs 10/12/1832610/11/182141 WBC 10.16 11.78* HGB 14.7 14.8 HCT 42.3 43.1 PLT 210 224 MCV 84.3 83.3 Recent Labs Lab 10/12/18 03210/11/18 21410/10/18 1736 NA 137 136 140 K 4.0 3.5 3.9 CL 102 101 103 CO2 25 26 27 ANIONGAP 14 13 14 BUN 25 20 12 CREA 1.1 1.18 1.16 CALCIUM 9.0 9.2 8.9 ALBUMIN 2.9* 3.8 3.9 ALKPHOS 125* 124* 128* ALT 25 19 22 AST 22 23 30 Recent Labs 10/13/18 1147 10/12/18 2116 10/12/18 1242 10/12/18 0823 GLU 485* 492* 454* 337* No results for input(s): TROPONIN, BNP in the last 72 hours. No results for input(s): PROTIME, INR, PTT in the last 168 hours. No results for input(s): IRON, TIBC, PCTSAT, FERRITIN, TSH, [id number], FOLATE in the last 168 hours. No results for input(s): LACTATE, PROCALCITONI, CRP, ESR in the last 168 hours. No results for input(s): AMYLASE, LIPASE in the last 168 hours. Recent Labs Lab 10/12/18 0327 TRIG 498* CHOL 166 HDL 26* LDL LDL NOT VALID WHEN TRIG >400 mg/dL No results for input(s): AMMONIA in the last 168 hours. Recent Results (from the past 360 hour(s)) CT Head wo Contrast Narrative CT HEAD WITHOUT CONTRAST CLINICAL INFORMATION: Headache. Left leg numbness. COMPARISON: CT HEAD WO CONTRAST (05/12/2018); CT HEAD WO CONTRAST (06/25/2016); MRI BRAIN WO AND MRA HEAD (06/16/2016); PROCEDURE: Axial images were obtained through [...] Normal. Paranasal sinuses and mastoid air cells: The paranasal sinuses demonstrate mucosal thickening and fluid in the frontal sinuses, anterior right ethmoid air cells and posterior left ethmoid air cells. A left-sided jerome bullosa is noted. The maxillary sinuses and sphenoid sinuses are normally aerated. The mastoid air cells are normally aerated. Bilateral cerumen impaction is seen in the external auditory canals. Calvarium and extracranial soft tissues: Normal. Orbits: Imaged portions of the orbits are normal. IMPRESSION: 1. No acute intracranial findings to explain left leg numbness. 2. Mucosal thickening seen in the frontal and ethmoid sinuses. The left frontal sinus in particular is completely opacified with fluid which may be a source of headache. Signed by: Staci Lau Edward Sign Date/Time: 10/10/2018 6:31 PM XR Chest PA and Lateral Narrative CHEST PA AND LATERAL CLINICAL INFORMATION: Chest pain. COMPARISON: CTA CHEST PULMONARY EMBOLISM W CONTRAST (09/21/2018); XR CHEST 2 VIEW FRONTAL AND LATERAL (09/21/2018); XR CHEST 2 VIEW FRONTAL AND LATERAL (09/16/2018); FINDINGS: Heart, lungs and vessels normal. No pneumothorax, pleural effusion or adenopathy. No significant bone abnormality. IMPRESSION: Negative chest. Signed by: Irina Wynne Peter Sign Date/Time: 10/10/2018 6:34 PM XR Chest PA and Lateral Narrative CHEST PA AND LATERAL CLINICAL INFORMATION: Abnormal EKG. COMPARISON: XR CHEST PA AND LATERAL (10/10/2018); CTA CHEST PULMONARY EMBOLISM W CONTRAST (09/21/2018); XR CHEST 2 VIEW FRONTAL AND LATERAL (09/21/2018); FINDINGS: Heart, lungs and vessels normal. No pneumothorax, pleural effusion or adenopathy. No significant bone abnormality. IMPRESSION: Negative chest. Signed by: Irina Donahue Gordon Sign Date/Time: 10/11/2018 10:[address] Head wo Contrast Narrative CT HEAD WITHOUT CONTRAST CLINICAL INFORMATION: Evaluation after an abnormal EKG. Fall earlier today. Syncopal episode. COMPARISON: CT HEAD WO CONTRAST (10/10/2018); CT HEAD WO CONTRAST (05/12/2018); CT HEAD WO CONTRAST (06/25/2016); PROCEDURE: Axial images were obtained through the [...] Normal. Paranasal sinuses and mastoid air cells: Near total opacity of the frontal sinuses. Moderate ethmoid air cell mucosal thickening. Remaining paranasal sinuses and mastoid air cells are clear. Calvarium and extracranial soft tissues: Normal. Orbits: Imaged portions of the orbits are normal. Moderate debris/cerumen within the bilateral external auditory canals. IMPRESSION: No acute intracranial findings. No intracranial hemorrhage, mass effect or edema. Signed by: Irina Atkinson Zachary Sign Date/Time: 10/12/2018 1:04 AM VAS Carotid Duplex Bilateral Narrative CAROTID DUPLEX ULTRASOUND CLINICAL INFORMATION: Syncope. COMPARISON: US CAROTID DOPPLER BILATERAL (05/30/2014); US CAROTID DOPPLER BILATERAL (12/02/2013); US CAROTID DOPPLER BILATERAL (07/08/2013); PROCEDURE: Evaluation of the extracranial carotid and vertebral arteries with production of real-time images integrating B-mode two-dimensional vascular structure, Doppler spectral analysis and color-flow Doppler imaging. FINDINGS: Peak systolic and diastolic velocities measured in the common and internal carotid arteries. All velocities recorded in cm/sec: Anterior Circulation: Right CCA: 60/0 ICA: 89/0 ECA: 229/6 ICA/CCA: 0.7 Left CCA: 85/6 ICA: 142 /12 ECA: 232/0 ICA/CCA: 1.7 Posterior Circulation: Right: Vertebral: 47/0 Antegrade Left: Vertebral: 55/4 Antegrade Morrissey scale images: Right: Mild calcified plaque is seen of the carotid bulb extending into the proximal internal carotid artery. Left: Moderate calcified plaque is demonstrated of the carotid bulb. Calcification is noted extending into the proximal internal carotid artery. Elevation in velocity of the proximal and distal left subclavian artery is noted. IMPRESSION: Right: Negative for hemodynamically significant stenosis. (Less [...] <2 and ICA EDV < 40 cm/sec.) Elevation in velocity of the left common carotid and subclavian artery that could reflect artifact from tortuosity versus inflow stenosis. Criteria based on society of radiologists in ultrasound consensus criteria. Radiology. 2002;229(2):340-6. 2002Oct 24. Signed by: Irina Ji Richard Sign Date/Time: 10/12/2018 2:47 PM Imaging: Imaging Reviewed. PROBLEM LIST Principal Problem: Other chest pain Active Problems: Syncope Uncontrolled hypertension Type 2 diabetes mellitus with hyperglycemia Anxiety Chronic anticoagulation Resolved Problems: * No resolved hospital problems. * ASSESSMENT & PLAN Chest pain -Atypical as it reproduces with palpation, however patient has multiple risk factors which include hypertension, dyslipidemia, diabetes, sedentary behavior -On Nicardipine gtt. Until evening of 10/12/18. -Resumed home medications -Records reviewed, last nuclear stress test on October 16, 2017 revealed no reversible de fects to suggest left ventricular ischemia -Will not do Nuc Med stress test at this time. -Cardiac Enzymes x 3 with troponin have been normal. CP resolved -Tylenol and pain medication as needed Syncope: -Unclear whether this is a true syncope or falling asleep -Unclear etiology -Differential diagnosis includes somatic dysfunction, arrhythmia, carotid sinus and deep ve in thrombosis, alcohol, dehydration, medications, neurocardiogenic or vasovagal -Telemetry -Echocardiogram to ruled out valvular heart disease is pending -CT brain --no intracranial finding or hemorrhage, mass effect or edema -Carotid ultrasounds -- Right & Left--negative for significant stenosis -Orthostatic--normal -neuro checks have been normal -Continuous pulse ox -Fall precautions Malignant Hypertension: -Blood pressure as high as 254/139 -Initially started on Nitro gtt, however patient allergic. Stopped and started on Nifedipin e gtt. (allergy list now transitioned to new Epic alignment) -Report compliance with medication patient is on Nifedipine and Coreg. Restarted Lisinopril and Nifedipine. Coreg has been restarted--will increase if necessary. -Hydralazine added Type 2 diabetes mellitus with hyperglycemia: -Uncontrolled, blood glucose 293 -Hold oral anti-glycemic's -Resume long-acting insulin as per home dose -Add 5 units with meals -Insulin sliding scale Anxiety: -Continue Abilify Chronic anticoagulation: -For paroxysmal atrial fibrillation -Resume Eliquis -Please give patient a prescription for Eliquis at discharge, as he ran out. Disposition: Code Status: Full Code Natalia Olea MD 10/13/2018 14:31 Genna Beckman RN - 10/12/2018 6:24 PM PDTPt admitted to unit from P. Pt continued on nicardipine drip and BP trends from high 170's to low 160's throughout shift. No complaints of pain for shift. Pt s afe and checked on every hour and PRN. Pt lopez maintained and new IV placed by PICC in L ar m. Restarted on nicardipine drip when pressures reached 180. Pt resting comfortably. Chart check complete. Genna Cross RN Natalia Sullivan MD - 10/12/2018 3:30 PM PDT [facility] Service: Hospitalist Progress Note Hospital Day: LOS: 0 days SUBJECTIVE Patient Summary: From [facility] Dr. Kelly 10/11/18 The patient is a 62 y.o. male with significant past medical history of anxiety, depression, diarrhea, diabetes type 2, generalized weakness, chronic anticoagulation, developmentally d elayed, COPD, obstructive sleep apnea, noncompliant with CPAP, who presents with chest pain, hx of atrial fibrillation and syncope. Patient complains of syncope x 2. Onset was 11 hours ago, with improving course since that time. Patient describes the episode as weakness. Patient also has associated symptoms of no ne. The patient denies abdominal pain, excessive thirst, melena, nausea and tachycardia/palp itations. Taking culprit meds?: alpha blockers, beta blockers Per patient, black out twice ( previously told the RN x 4). He was sitting and believes he was out for 5-10 minutes Patient complains of chest pain. Onset was 10 hours ago, with improving course since that t silva. The patient describes the pain as intermittent, dull in nature, radiates to the left sh oulder and legs. Patient rates pain as a 7/10 in intensity. Associated symptoms are dyspnea . Aggravating factors are pushing on his chest, sneezed or cough. Alleviating factors are: none. Patient's cardiac risk factors are advanced age (older than 55 for men, 65 for women), dyslipidemia, hypertension, male gender, obesity (BMI >= 30 kg/m2) and sedentary lifestyle. Patient's risk factors for DVT/PE: none. Previous cardiac testing: nuclear stress negative . Patient ran out of Trefis 3 days ago Seen in the ER on October 10 for chest pain. Lab work remarkable for hyperglycemia and a n egative troponin. BP was as high as 219/114. 10/12/18 Patient initiated on Nitro gtt, however per review of nursing staff, noticed he has allergy to Nitro. (allergies list was not transition to [facility] allignment). Patient's tongue became swollen, and it was difficult for him to speak. Nitro drip and patch was removed. 02 levels remained normal. He felt nauseated and was coughing up thick secretions. He was d iaphoretic. ICU was notified and patient was placed on Dexamethasone and Pepcid. Patient q uickly felt improved. He was able to speak clearly and nausea resolved. He was moved to the 9th floor for Nicardipine gtt. Vital were stable. Chest pain has also resolved. Scheduled Medications apixaban 5 mg Oral BID ARIPiprazole 5 mg Oral Daily aspirin 81 mg Oral Daily budesonide-formoterol 2 puff Inhalation RT BID carvedilol 6.25 mg Oral BID WC dexamethasone 8 mg Intravenous 4 times per day famotidine 20 mg Intravenous BID hydrALAZINE 10 mg Oral BID insulin detemir 40 Units Subcutaneous QAM insulin lispro 0-6 Units Subcutaneous 4x Daily WC and HS insulin lispro 5 Units Subcutaneous TID WC pravastatin 80 mg Oral Nightly tamsulosin 0.4 mg Oral BID PRN Medications acetaminophen, Hypoglycemia Management AND POCT Glucose AND dextrose AND dextro se 10%, morphine, nitroglycerin, senna OBJECTIVE Vital Signs: BP 148/60 | Pulse 80 | Temp 36.7 C (98.1 F) (Oral) | Resp 18 | Ht 1.803 m (5' 11") | Wt 99 kg (218 lb 4.1 oz) | SpO2 93% | BMI 30.44 kg/m Patient Vitals for the past 24 hrs: BP Temp Temp src Pulse Resp SpO2 Height Weight 10/12/18 1445 148/60 80 18 10/12/18 1430 160/70 82 19 10/12/18 1415 149/79 96 (!) 35 10/12/18 1400 142/79 85 (!) 34 10/12/18 1330 147/60 77 18 93 % 10/12/18 1315 160/73 79 20 94 % 10/12/18 1300 139/68 81 25 93 % 10/12/18 1245 76 19 93 % 10/12/18 1230 75 28 95 % 10/12/18 1215 157/72 78 24 10/12/18 1200 157/72 76 24 10/12/18 1145 164/73 78 25 10/12/18 1130 155/62 77 17 10/12/18 1115 169/75 80 19 10/12/18 1100 172/81 82 25 10/12/18 1045 178/85 82 18 10/12/18 1030 176/84 81 30 95 % 10/12/18 1015 176/85 84 18 95 % 10/12/18 1000 165/85 83 25 93 % 10/12/18 0945 177/83 84 17 95 % 10/12/18 0930 177/81 80 10/12/18 0925 180/83 82 10/12/18 0920 164/74 90 10/12/18 0915 170/79 84 10/12/18 0910 (!) 198/96 92 10/12/18 0905 (!) 194/139 88 10/12/18 0900 159/71 78 10/12/18 0855 159/73 78 10/12/18 0850 187/80 80 10/12/18 0845 (!) 203/91 80 10/12/18 0840 181/70 76 10/12/18 0823 189/86 10/12/18 0820 189/86 74 10/12/18 0816 72 10/12/18 0815 (!) 195/91 72 10/12/18 0812 191/89 36.7 C (98.1 F) Oral 69 20 97 % 10/12/18 0810 191/89 70 10/12/18 0805 (!) 217/95 64 10/12/18 0800 188/87 68 10/12/18 0755 (!) 209/132 10/12/18 0750 (!) 223/100 10/12/18 0745 (!) 215/84 10/12/18 0740 (!) 224/94 10/12/18 0735 (!) 220/100 10/12/18 0730 195/90 10/12/18 0726 (!) 211/93 10/12/18 0725 (!) 211/93 10/12/18 0721 (!) 208/93 76 10/12/18 0720 (!) 208/93 10/12/18 0715 (!) 218/97 76 10/12/18 0710 (!) 232/105 10/12/18 0707 (!) 232/105 70 10/12/18 0705 (!) 232/105 10/12/18 0658 (!) 237/105 36.7 C (98 F) Oral 70 20 99 % 10/12/18 0602 (!) 223/105 10/12/18 0510 (!) 196/94 60 10/12/18 0425 (!) 216/100 10/12/18 0408 (!) 212/100 61 18 10/12/18 0315 (!) 212/97 67 18 10/12/18 0255 (!) 223/105 37.1 C (98.7 F) Oral 69 18 98 % 1.803 m (5' 11") 99 kg (218 l b 4.1 oz) 10/12/18 0230 176/83 68 18 96 % 10/12/18 0134 (!) 216/95 63 21 94 % 10/12/18 0130 (!) 220/104 64 18 94 % 10/12/18 0100 (!) 254/121 74 (!) 31 10/12/18 0030 (!) 199/93 62 13 95 % 10/12/18 0000 (!) 196/97 59 27 95 % 10/11/18 2330 169/81 68 17 95 % 10/11/18 2300 (!) 203/87 56 18 94 % 10/11/18 2230 (!) 202/138 61 18 95 % 10/11/18 2105 (!) 221/103 63 9 95 % 10/11/18 1811 (!) 143/91 36.6 C (97.9 F) Oral 73 20 93 % 98 kg (216 lb 0.8 oz) First: 98 kg (10/11/181810)Last: 99 kg (10/12/18254)Difference: 1kg Weight change: Intake/Output Summary (Last 24 hours) at 10/12/2018 1530 Last data filed at 10/12/2018 0956 Gross per 24 hour Intake Output 2200 ml Net -2200 ml Body mass index is 30.44 kg/m. Physical Exam Constitutional: He appears well-developed and well-nourished. HENT: Head: Normocephalic and atraumatic. Eyes: Pupils are equal, round, and reactive to light. EOM are normal. Cardiovascular: Normal rate. Pulmonary/Chest: Effort normal and breath sounds normal. Abdominal: Soft. Bowel sounds are normal. Neurological: Alert to self Skin: Skin is warm and dry. Psychiatric: Patient lethargic. Tongue slightly swollen Nursing note and vitals reviewed. DATA Recent Labs 10/12/1832610/11/182141 WBC 10.16 11.78* HGB 14.7 14.8 HCT 42.3 43.1 PLT 210 224 MCV 84.3 83.3 Recent Labs Lab 10/12/1832610/11/18214110/10/18 1736 NA 137 136 140 K 4.0 3.5 3.9 CL 102 101 103 CO2 25 26 27 ANIONGAP 14 13 14 BUN 25 20 12 CREA 1.1 1.18 1.16 CALCIUM 9.0 9.2 8.9 ALBUMIN 2.9* 3.8 3.9 ALKPHOS 125* 124* 128* ALT 25 19 22 AST 22 23 30 Recent Labs 10/12/18 1242 10/12/18 0810/12/1832610/11/182141 GLU 454* 337* 323* 293* No results for input(s): TROPONIN, BNP in the last 72 hours. No results for input(s): PROTIME, INR, PTT in the last 168 hours. No results for input(s): IRON, TIBC, PCTSAT, FERRITIN, TSH, [id number], FOLATE in the last 168 hours. No results for input(s): LACTATE, PROCALCITONI, CRP, ESR in the last 168 hours. No results for input(s): AMYLASE, LIPASE in the last 168 hours. Recent Labs Lab 10/12/18326 TRIG 498* CHOL 166 HDL 26* LDL LDL NOT VALID WHEN TRIG >400 mg/dL No results for input(s): AMMONIA in the last 168 hours. Recent Results (from the past 360 hour(s)) CT Head wo Contrast Narrative CT HEAD WITHOUT CONTRAST CLINICAL INFORMATION: Headache. Left leg numbness. COMPARISON: CT HEAD WO CONTRAST (05/12/2018); CT HEAD WO CONTRAST (06/25/2016); MRI BRAIN WO AND MRA HEAD (06/16/2016); PROCEDURE: Axial images were obtained through [...] Normal. Paranasal sinuses and mastoid air cells: The paranasal sinuses demonstrate mucosal thickening and fluid in the frontal sinuses, anterior right ethmoid air cells and posterior left ethmoid air cells. A left-sided jerome bullosa is noted. The maxillary sinuses and sphenoid sinuses are normally aerated. The mastoid air cells are normally aerated. Bilateral cerumen impaction is seen in the external auditory canals. Calvarium and extracranial soft tissues: Normal. Orbits: Imaged portions of the orbits are normal. IMPRESSION: 1. No acute intracranial findings to explain left leg numbness. 2. Mucosal thickening seen in the frontal and ethmoid sinuses. The left frontal sinus in particular is completely opacified with fluid which may be a source of headache. Signed by: Staci Lau Edward Sign Date/Time: 10/10/2018 6:31 PM XR Chest PA and Lateral Narrative CHEST PA AND LATERAL CLINICAL INFORMATION: Chest pain. COMPARISON: CTA CHEST PULMONARY EMBOLISM W CONTRAST (09/21/2018); XR CHEST 2 VIEW FRONTAL AND LATERAL (09/21/2018); XR CHEST 2 VIEW FRONTAL AND LATERAL (09/16/2018); FINDINGS: Heart, lungs and vessels normal. No pneumothorax, pleural effusion or adenopathy. No significant bone abnormality. IMPRESSION: Negative chest. Signed by: Irina Wynne Peter Sign Date/Time: 10/10/2018 6:34 PM XR Chest PA and Lateral Narrative CHEST PA AND LATERAL CLINICAL INFORMATION: Abnormal EKG. COMPARISON: XR CHEST PA AND LATERAL (10/10/2018); CTA CHEST PULMONARY EMBOLISM W CONTRAST (09/21/2018); XR CHEST 2 VIEW FRONTAL AND LATERAL (09/21/2018); FINDINGS: Heart, lungs and vessels normal. No pneumothorax, pleural effusion or adenopathy. No significant bone abnormality. IMPRESSION: Negative chest. Signed by: Irina Donahue Gordon Sign Date/Time: 10/11/2018 10:[address] Head wo Contrast Narrative CT HEAD WITHOUT CONTRAST CLINICAL INFORMATION: Evaluation after an abnormal EKG. Fall earlier today. Syncopal episode. COMPARISON: CT HEAD WO CONTRAST (10/10/2018); CT HEAD WO CONTRAST (05/12/2018); CT HEAD WO CONTRAST (06/25/2016); PROCEDURE: Axial images were obtained through the [...] Normal. Paranasal sinuses and mastoid air cells: Near total opacity of the frontal sinuses. Moderate ethmoid air cell mucosal thickening. Remaining paranasal sinuses and mastoid air cells are clear. Calvarium and extracranial soft tissues: Normal. Orbits: Imaged portions of the orbits are normal. Moderate debris/cerumen within the bilateral external auditory canals. IMPRESSION: No acute intracranial findings. No intracranial hemorrhage, mass effect or edema. Signed by: Irina Atkinson, Rhys Sign Date/Time: 10/12/2018 1:04 AM VAS Carotid Duplex Bilateral Narrative CAROTID DUPLEX ULTRASOUND CLINICAL INFORMATION: Syncope. COMPARISON: US CAROTID DOPPLER BILATERAL (05/30/2014); US CAROTID DOPPLER BILATERAL (12/02/2013); US CAROTID DOPPLER BILATERAL (07/08/2013); PROCEDURE: Evaluation of the extracranial carotid and vertebral arteries with production of real-time images integrating B-mode two-dimensional vascular structure, Doppler spectral analysis and color-flow Doppler imaging. FINDINGS: Peak systolic and diastolic velocities measured in the common and internal carotid arteries. All velocities recorded in cm/sec: Anterior Circulation: Right CCA: 60/0 ICA: 89/0 ECA: 229/6 ICA/CCA: 0.7 Left CCA: 85/6 ICA: 142 /12 ECA: 232/0 ICA/CCA: 1.7 Posterior Circulation: Right: Vertebral: 47/0 Antegrade Left: Vertebral: 55/4 Antegrade Morrissey scale images: Right: Mild calcified plaque is seen of the carotid bulb extending into the proximal internal carotid artery. Left: Moderate calcified plaque is demonstrated of the carotid bulb. Calcification is noted extending into the proximal internal carotid artery. Elevation in velocity of the proximal and distal left subclavian artery is noted. IMPRESSION: Right: Negative for hemodynamically significant stenosis. (Less [...] <2 and ICA EDV < 40 cm/sec.) Elevation in velocity of the left common carotid and subclavian artery that could reflect artifact from tortuosity versus inflow stenosis. Criteria based on society of radiologists in ultrasound consensus criteria. Radiology. 2003 Dec;229(2):340-6. 2002Oct 24. Signed by: Irina Ji Richard Sign Date/Time: 10/12/2018 2:47 PM Imaging: Imaging Reviewed. PROBLEM LIST Principal Problem: Other chest pain Active Problems: Syncope Uncontrolled hypertension Type 2 diabetes mellitus with hyperglycemia Anxiety Chronic anticoagulation Resolved Problems: * No resolved hospital problems. * ASSESSMENT & PLAN Chest pain -Atypical as it reproduces with palpation, however patient has multiple risk factors which include hypertension, dyslipidemia, diabetes, sedentary behavior -On Nicardipine gtt. -Differential diagnosis includes angina, acute MD, esophagitis, pneumonic process, musculos keletal vs others -Records reviewed, last nuclear stress test on October 16, 2017 revealed no reversible de fects to suggest left ventricular ischemia -Will not do Nuc Med stress test at this time. -Cardiac Enzymes x 3 with troponin have been normal. CP resolved -Tylenol and pain medication as needed Syncope: -Unclear whether this is a true syncope or falling asleep -Unclear etiology -Differential diagnosis includes somatic dysfunction, arrhythmia, carotid sinus and deep ve in thrombosis, alcohol, dehydration, medications, neurocardiogenic or vasovagal -Telemetry -Echocardiogram to ruled out valvular heart disease is pending -CT brain --no intracranial finding or hemorrhage, mass effect or edema -Carotid ultrasounds -- Right & Left--negative for significant stenosis -Orthostatic--normal -neuro checks have been normal -Continuous pulse ox -Fall precautions Malignant Hypertension: -Blood pressure as high as 254/139 -Initially started on Nitro gtt, however patient allergic. Stopped and started on Nifedipin e gtt. (allergy list now transitioned to new [facility] alignment) -Report compliance with medication patient is on Nifedipine and Coreg. I will restart Lisinopril and Nifedipine. Coreg has been restarted--will increase if neces sharonda. -Hydralazine added Type 2 diabetes mellitus with hyperglycemia: -Uncontrolled, blood glucose 293 -Hold oral anti-glycemic's -Resume long-acting insulin as per home dose -Add 5 units with meals -Insulin sliding scale Anxiety: -Continue Abilify Chronic anticoagulation: -For paroxysmal atrial fibrillation -Resume Eliquis -Please give patient a prescription for Eliquis at discharge, as he ran out. Disposition: Code Status: Full Code Natalia Olea MD 10/12/2018 15:30 Patti Barraza DO - 7:13 AM PDTSigned Off to Dr OleaElectronically signed by Patti Kelly DO at 7:14 AM Kesha Noriega RN - 10/12/2018 6:33 AM PDTNo acute changes since admis ivana assessment. Patient remains hypertensive. Given one time dose of 10 mg of IV hydralazin e per Dr. Kelly. One episode of emesis with extreme headache. Patient unable to complete carotid ultrasound due to nausea, headache, and body aches. Spok e with Dr. Kelly about patient's BP not improving. Order placed for nitroglycerin drip. End of shift audit and 24 hour chart check complete Kesha Gil RN Patti Barraza DO - 10/12/2018 6:12 AM PDTCalled by RN re: hypertension 223/105, no chest pain and KELLEY Despite hydralazine IV, oral hydralazine and other antihypertensive given earlier Nitroglycerin drip initiated, extra dose of morphine order Will discontinue Stress test for now documented in this encounter H&P Notes Patti Kelly DO - 10/11/2018 11:52 PM PDTFormatting of this note might be different from t keaton original. [facility] Service: Hospitalist Admission History & Physical Date of Admission: 10/11/2018 Primary Care Physician: Mik Diego DO Reason for Admission: Chest pain, syncope, uncontrolled hypertension, type 2 diabetes, anxi ety and chronic anticoagulation History obtained chart review and the patient. CHIEF COMPLAINT: Chief Complaint Patient presents with Evaluation Of Abnormal Ekg HISTORY OF PRESENT ILLNESS The patient is a 62 y.o. male with significant past medical history of anxiety, depression, diarrhea, diabetes type 2, generalized weakness, chronic anticoagulation, developmentally d elayed, COPD, obstructive sleep apnea, noncompliant with CPAP, who presents with chest pain, hx of atrial fibrillation and syncope. Patient complains of syncope x 2. Onset was 11 hours ago, with improving course since that time. Patient describes the episode as weakness. Patient also has associated symptoms of no ne. The patient denies abdominal pain, excessive thirst, melena, nausea and tachycardia/palp itations. Taking culprit meds?: alpha blockers, beta blockers Per patient, black out twice ( previously told the RN x 4). He was sitting and believes he was out for 5-10 minutes Patient complains of chest pain. Onset was 10 hours ago, with improving course since that t silva. The patient describes the pain as intermittent, dull in nature, radiates to the left sh oulder and legs. Patient rates pain as a 7/10 in intensity. Associated symptoms are dyspnea . Aggravating factors are pushing on his chest, sneezed or cough. Alleviating factors are: none. Patient's cardiac risk factors are advanced age (older than 55 for men, 65 for women), dyslipidemia, hypertension, male gender, obesity (BMI >= 30 kg/m2) and sedentary lifestyle. Patient's risk factors for DVT/PE: none. Previous cardiac testing: nuclear stress negative . Patient ran out of Trefis 3 days ago Seen in the ER on October 10 for chest pain. Lab work remarkable for hyperglycemia and a n egative troponin. BP was as high as 219/114. Medications aspirin chewable tablet 324 mg (324 mg Oral Given 10/11/182230) nitroglycerin (NITROSTAT) SL tablet 0.4 mg (0.4 mg Sublingual Given 10/11/185) Active comorbid conditions include: - angina - dysrhythmias; atrial fibrillation; paroxysmal - hypertension; essential - COPD - sleep apnea - CVA; past history of Review of Systems Constitutional: Positive for fatigue. Negative for activity change, chills, diaphoresis and fever. HENT: Negative for congestion, ear discharge, ear pain, hearing loss, nosebleeds and sinus pressure. Eyes: Negative for redness and visual disturbance. Respiratory: Positive for chest tightness and shortness of breath. Negative for apnea, coug h and choking. Cardiovascular: Positive for chest pain, palpitations and leg swelling. Gastrointestinal: Negative for abdominal distention, abdominal pain, blood in stool, consti pation, diarrhea, nausea and vomiting. Endocrine: Negative for cold intolerance, heat intolerance, polydipsia, polyphagia and poly uria. Genitourinary: Negative for difficulty urinating, dysuria, flank pain, frequency, genital s ores and hematuria. Musculoskeletal: Negative for arthralgias, back pain, gait problem and neck pain. Skin: Negative for color change, pallor, rash and wound. Allergic/Immunologic: Negative for environmental allergies and immunocompromised state. Neurological: Negative for dizziness, seizures, facial asymmetry, speech difficulty, light- headedness, numbness and headaches. Speech impediment which is chronic Hematological: Does not bruise/bleed easily. Psychiatric/Behavioral: Negative for agitation, behavioral problems, confusion, decreased c oncentration and hallucinations. The patient is not nervous/anxious. PAST MEDICAL HISTORY Past Medical History: Diagnosis Date Acute pulmonary embolism ([facility]) 10/14/2017 Anxiety ARF (acute renal failure) ([facility]) 03/02/2013 Atrial fibrillation ([facility]) Basal cell carcinoma 09/26/2012 arm and back COPD (chronic obstructive pulmonary disease) ([facility]) 03/02/2013 hypoxemia on 2 lts nc Depression Development delay Diabetes mellitus type II DVT (deep venous thrombosis) ([facility]) 03/29/2018 Facial droop 07/08/2013 GIB (gastrointestinal bleeding) 03/02/[address] Nur, rectal ulcers, nodule of GE junction Hypercholesterolemia 07/08/2013 Hyperlipidemia Hypertension correction (current) use of 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 Obesity, Class I, [...] CHOLECYSTECTOMY; Surgeon: Jevon Vargas DO; Location: [facility] MAIN OR; Service: General; Laterality: N/A; COLONOSCOPY COLONOSCOPY 03/04/2013 Procedure: COLONOSCOPY; Surgeon: Howie Gibson MD; Location: [facility] ENDOSCOPY; Service: Gastroen terology; Laterality: N/A; HERNIA REPAIR 07/03/2013 Procedure: LAPAROSCOPIC - HERNIA - INCISIONAL; Surgeon: Jevon Vargas DO; Location: [facility] MAIN OR; Service: General; Laterality: N/A; KNEE SURGERY rt knee, patella LEG SURGERY LLE OTHER SURGICAL HISTORY UNLISTED PROCEDURE ARTHROSCOPY OTHER SURGICAL HISTORY Left 05/05/2014 SKIN LESION EXCISION - Procedure: EXCISION - LESION - FROZEN SECTION; Surgeon: Sy murcia MD; Location: [facility] MAIN OR; Service: Plastics; Laterality: Left; forearm SKIN BIOPSY SKIN CANCER EXCISION Left 10/10/2012 Procedure: EXCISION - SKIN CANCER; Surgeon: Sy Fierro MD; Location: [facility] MAIN OR; Service: Plastics; Laterality: Left; upper arm and upper back w/frozen section UPPER GASTROINTESTINAL ENDOSCOPY UPPER GASTROINTESTINAL ENDOSCOPY 03/03/2013 Procedure: ESOPHAGOGASTRODUODENOSCOPY; Surgeon: Howie Gibson MD; Location: [facility] ENDOSCOPY; Se rvice: Gastroenterology; Laterality: N/A; ALLERGIES Allergies Allergen Reactions Vitamin B12 Rash Rash HOME MEDICATIONS Prior to Admission medications Medication Sig Start Date End Date Taking? Authorizing Provider apixaban (ELIQUIS) 5 mg tablet Take 1 tablet by mouth 2 (two) times daily. 09/14/18 Yes Pilar Conteh MD ARIPiprazole (ABILIFY) 5 mg tablet Take 1 tablet by mouth daily for 30 days. 09/15/18 10/15/18 Yes Noble Conteh MD aspirin 81 MG tablet Take 1 tablet by mouth daily. 09/14/18 Yes Noble Conteh MD budesonide-formoterol (SYMBICORT) 160-4.5 mcg/puff inhaler Inhale 2 puffs into the lungs 2 (two) times daily. 09/14/18 09/14/19 Yes Noble Conteh MD carvedilol (COREG) 6.25 mg tablet Take 1 tablet by mouth 2 (two) times daily with meals. 09/14/1809/14/19 Yes Noble Conteh MD fenofibrate 160 mg tablet Take 1 tablet by mouth daily. 09/14/18 Yes Noble Conteh MD insulin aspart (NOVOLOG FLEXPEN) 100 units/mL injection pen Inject 12 Units into the skin 3 (three) times daily before meals. 09/21/18 Yes Provider Unknown Conversion Transaction insulin detemir (LEVEMIR FLEXTOUCH) 100 units/mL injection (pen) Inject 40 Units into the s kin every morning. 09/15/18 09/15/19 Yes Noble Conteh MD lisinopril (PRINIVIL, ZESTRIL) 10 mg tablet Take 10 mg by mouth daily. 09/21/18 Yes Provide r Unknown Conversion Transaction metFORMIN (GLUCOPHAGE) 500 mg tablet Take 1 tablet by mouth 2 (two) times daily with meals. 09/15/18 09/15/19 Yes Noble Conteh MD NIFEdipine (PROCARDIA XL) 60 mg ER tablet Take 1 tablet by mouth daily. 09/14/18 09/14/19 Yes Sukhjinder Conteh MD pravastatin (PRAVACHOL) 80 MG tablet Take 80 mg by mouth nightly. 08/11/12 Yes Provider Unkn own Conversion Transaction tamsulosin (FLOMAX) 0.4 mg CAPS Take 1 capsule by mouth 2 (two) times daily. Administer 30 minutes after the same meal each day. Capsules should be swallowed whole; 09/14/18 Yes Noble Conteh MD SOCIAL HISTORY reports that he has never smoked. He has never used smokeless tobacco. He reports that he drinks alcohol. He reports that he does not use drugs. FAMILY HISTORY family history includes Diabetes, NIDDM in his sister; Heart disease in his father and sist er; Other (see comment) in his brother. PHYSICAL EXAM BP (!) 196/97 | Pulse 59 | Temp 36.6 C (97.9 F) (Oral) | Resp 27 | Wt 98 kg (216 lb 0.8 oz) | SpO2 95% | BMI 30.13 kg/m Physical Exam Constitutional: He is oriented to person, place, and time. He appears well-developed. No di stress. Morbid obesity. Speech impediment HENT: Head: Normocephalic and atraumatic. Right Ear: External ear normal. Left Ear: External ear normal. Nose: Nose normal. Mouth/Throat: No oropharyngeal exudate. Eyes: Pupils are equal, round, and reactive to light. Conjunctivae and EOM are normal. Righ t eye exhibits no discharge. Left eye exhibits no discharge. No scleral icterus. Neck: Normal range of motion. Neck supple. Cardiovascular: Normal rate, regular rhythm and normal heart sounds. No murmur heard. Pulmonary/Chest: Effort normal and breath sounds normal. No respiratory distress. He has no wheezes. He has no rales. He exhibits no tenderness. Abdominal: Soft. Bowel sounds are normal. He exhibits no distension. There is no tenderness . Musculoskeletal: Normal range of motion. He exhibits edema. He exhibits no tenderness or de formity. Neurological: He is alert and oriented to person, place, and time. No cranial nerve deficit or sensory deficit. He exhibits normal muscle tone. Coordination normal. Skin: Skin is warm and dry. No rash noted. He is not diaphoretic. No erythema. Psychiatric: His behavior is normal. Judgment and thought content normal. His mood appears anxious. DATA Recent Results (from the past 24 hour(s)) CBC with Differential Result Value Ref Range WBC 11.78 (H) 3.80 - 11.00 K/uL RBC 5.18 4.20 - 5.70 M/uL Hemoglobin 14.8 13.2 - 17.0 g/dL Hematocrit 43.1 39.0 - 50.0 % MCV 83.3 80.0 - 100.0 fl MCH 28.6 27.0 - 34.0 pg MCHC 34.3 32.0 - 35.5 g/dL RDW-SD 41.1 37 - 53 fl Platelet Count 224 150 - 400 K/uL MPV 7.8 fl Diff Type AUTOMATED % Neutrophils 53.28 % % Lymphocytes 30.94 % Monocyte % 8.79 % Eosinophils % 5.97 % Basophils % 1.02 % Neutrophils, Absolute 6.27 1.90 - 7.40 K/uL Absolute Lymphocytes 3.64 1.00 - 3.90 K/uL Absolute Monocytes 1.04 (H) 0.00 - 0.80 K/uL Eosinophils, Absolute 0.70 (H) 0.00 - 0.50 K/uL Basophils, Absolute 0.12 (H) 0.00 - 0.10 K/uL Comprehensive Metabolic Panel Result Value Ref Range Na 136 135 - 145 mmol/L K 3.5 3.5 - 4.9 mmol/L Cl 101 99 - 109 mmol/L CO2 26 23 - 32 mmol/L Anion Gap 13 5 - 20 mmol/L Glucose 293 (H) 65 - 99 mg/dL BUN 20 8 - 25 mg/dL Creatinine 1.18 0.70 - 1.30 mg/dL BUN/Creatinine Ratio 17 Calcium 9.2 8.5 - 10.5 mg/dL Protein, Total 6.6 6.3 - 8.2 g/dL Albumin 3.8 3.3 - 4.8 g/dL Globulin 2.8 1.3 - 4.9 g/dL A/G Ratio 1.4 1.0 - 2.4 BILIRUBIN, TOTAL 0.4 0.1 - 1.5 mg/dL ALK PHOS 124 (H) 35 - 115 U/L AST 23 10 - 45 U/L ALT 19 10 - 65 U/L Estimated GFR >60 >60 mL/min/1.73m2 Troponin I Result Value Ref Range Troponin T 0.04 0.00 - 0.04 ng/mL ECG 12 lead Result Value Ref Range INTERPRETATION TEXT Not Confirmed IMAGING Recent Results (from the past 360 hour(s)) CT Head wo Contrast Narrative CT HEAD WITHOUT CONTRAST CLINICAL INFORMATION: Headache. Left leg numbness. COMPARISON: CT HEAD WO CONTRAST (05/12/2018); CT HEAD WO CONTRAST (06/25/2016); MRI BRAIN WO AND MRA HEAD (06/16/2016); PROCEDURE: Axial images were obtained through [...] Normal. Paranasal sinuses and mastoid air cells: The paranasal sinuses demonstrate mucosal thickening and fluid in the frontal sinuses, anterior right ethmoid air cells and posterior left ethmoid air cells. A left-sided jerome bullosa is noted. The maxillary sinuses and sphenoid sinuses are normally aerated. The mastoid air cells are normally aerated. Bilateral cerumen impaction is seen in the external auditory canals. Calvarium and extracranial soft tissues: Normal. Orbits: Imaged portions of the orbits are normal. IMPRESSION: 1. No acute intracranial findings to explain left leg numbness. 2. Mucosal thickening seen in the frontal and ethmoid sinuses. The left frontal sinus in particular is completely opacified with fluid which may be a source of headache. Signed by: Staci Lau Edward Sign Date/Time: 10/10/2018 6:31 PM XR Chest PA and Lateral Narrative CHEST PA AND LATERAL CLINICAL INFORMATION: Chest pain. COMPARISON: CTA CHEST PULMONARY EMBOLISM W CONTRAST (09/21/2018); XR CHEST 2 VIEW FRONTAL AND LATERAL (09/21/2018); XR CHEST 2 VIEW FRONTAL AND LATERAL (09/16/2018); FINDINGS: Heart, lungs and vessels normal. No pneumothorax, pleural effusion or adenopathy. No significant bone abnormality. IMPRESSION: Negative chest. Signed by: Irina Wynne Peter Sign Date/Time: 10/10/2018 6:34 PM XR Chest PA and Lateral Narrative CHEST PA AND LATERAL CLINICAL INFORMATION: Abnormal EKG. COMPARISON: XR CHEST PA AND LATERAL (10/10/2018); CTA CHEST PULMONARY EMBOLISM W CONTRAST (09/21/2018); XR CHEST 2 VIEW FRONTAL AND LATERAL (09/21/2018); FINDINGS: Heart, lungs and vessels normal. No pneumothorax, pleural effusion or adenopathy. No significant bone abnormality. IMPRESSION: Negative chest. Signed by: Irina Donahue Gordon Sign Date/Time: 10/11/2018 10:21 PM EKG at 1810: Ventricular rate 68, QTc 452, possible left atrial enlargement, left ventricul ar hypertrophy, sinus rhythm with premature atrial complexes, nonspecific ST and T wave abno rmalities in the inferior leads mostly. When compared with previous EKG from October 10 ead II is slightly different showing ST flattening. Interpreted by me ASSESSMENT & PLAN Principal Problem: Other chest pain: -Atypical as it reproduces with palpation, however patient has multiple risk factors which include hypertension, dyslipidemia, diabetes, sedentary behavior -Differential diagnosis includes angina, acute MD, esophagitis, pneumonic process, musculos keletal vs others -Records reviewed, last nuclear stress test on October 16, 2017 revealed no reversible de fects to suggest left ventricular ischemia -Aspirin, Beta linda if tolerated -Pain management to include nitroglycerin prn -Cardiac Enzymes x 3 with troponin every 4 hours if negative will do Stress test -Lipid profile -Tylenol and pain medication as needed Active Problems: Syncope: -Unclear whether this is a true syncope or falling asleep -Unclear etiology -Differential diagnosis includes somatic dysfunction, arrhythmia, carotid sinus and deep ve in thrombosis, alcohol, dehydration, medications, neurocardiogenic or vasovagal -Telemetry -Echocardiogram to ruled out valvular heart disease -CT brain as above -We will check carotid ultrasounds to rule out -Orthostatic -neuro check -Continuous pulse ox is -Fall precautions Uncontrolled hypertension: -Blood pressure as high as 221/103 in the ER -Report compliance with medication patient is on nifedipine and Coreg will continue -We will increase lisinopril and add hydralazine Type 2 diabetes mellitus with hyperglycemia: -Uncontrolled, blood glucose 293 -Hold oral anti-glycemic's -Resume long-acting insulin as per home dose -Insulin sliding scale Anxiety: -Continue Abilify Chronic anticoagulation: -For paroxysmal atrial fibrillation -Resume Eliquis -Please give patient a prescription for Eliquis as he ran out. GI and DVT prophylaxis Code Status: No Order Dictation software, Adwings, used which may contain errors for similar sounding words even a fter reviewed. Personal communication requested for any clarification Patti Kelly DO 10/12/2018 0:39 documented in this encou nter Consult Notes Jenniffer Galarza RN - 10/16/2018 12:30 PM PDTAssociated Order(s): IP CONSULT TO DIABET ES SPECIALISTAs I arrived to pt room, Norah was standing in the doorway asking about when he would be able to leave. I introduced my self and he stepped back to let me in the room. He tripped over his own feet and fell to the floor landing on his L hip. Primary RN notified im mediately. Once pt was assisted up and checked for injury, my visit began. Pt admitted with hyperglycemia and PE. A1C 11.8. Pt was no longer taking insulin at home. C urrently he is taking Levemir 50 units every morning, Humalog 5 units with meals, and high d ose correction. Norah states that his former PCP moved and he has been having trouble getting into a new on e. He also lost medicaid eligibility, requiring him to pay more for his medications. He stat es he cannot afford it. He will be discharging to a facility for now. Norah does have develo pmental delays as well. He had a lady who was here to pick help him to [facility] who he lps him at home at times. He lives alone and does not drive. We discussed [employer] ins ulin as an alternative, but per pt and friend, this is not possible as pt does not have the capacity to learn to use syringe and vial reliably. He is able to use the insulin pen as it does not have as many steps and requires less coordination. We discussed other means of help such as prescription assistance programs. Per friend, they have tried these, but he has not qualified. For now, Norah will go to a rehab facility and it sounds like they will be looki ng for a longer term alternative living situation where he can get some help with obtaining medications and care. Discussed with Insurance Adjustor as it appears pt needs help navigating the health care and [employer] systems. Per CM, agencies are being made aware of his situation. Jenniffer Galarza RN, [employer] 10/16/18 15:35 Francisco J Loyola M D - 10/12/2018 6:31 PM PDT I was called by Dr. Olea to evaluate this 62-year-old gentleman who was admitted [facility] for hypertensive emergency. The patient was started on nitroglycerin drip and due to the patient being a poor historian and no documented allergies from the past he was started on nitroglycerin which apparently gave him anaphylaxis. Dr. Olea was concerned about angioe leida. When I went and saw the patient he was awake alert oriented. He had dysarthria howev er I did not appreciate any tongue swelling. He did not complain of choking and he was able to talk to me in full sentences. He did say that he was given nitroglycerin even yesterday when he came to the ER and did not have any symptoms. Since he has a history of allergy to nitroglycerin we gave him a dose of dexamethasone Benadryl along with famotidine. We advis ed the patient to be switched to nicardipine and continue lowering the blood pressure gradua lly. He did not have any stridor on examination. There were no signs of congestive heart failur e. There was no S3 or S4. We advised the patient to be admitted to ninth floor under the hospitalist service. The pl an was discussed with the hospitalist. Please bill 35 minutes of critical care time spent on evaluating this patient documented in this encounter ED Notes Malia Vega RN - 10/11/2018 11:34 PM PDTPt reports decrease in pain level after one d ose of nitro. aware. Gamal Tracey DO - 10/11/2018 9:20 PM PDT [facility] Department of Emergency Medicine 21:25 History of Present Illness Patient Identification Norah Guzman is a 62 y.o. male. Patient information was obtained from patient. History/Exam limitations: none. Patient presented to the Emergency Department by: Car Chief Complaint Chief Complaint Patient presents with Evaluation Of Abnormal Ekg The patient presents to ED with complaints of chest pain and blacking out. Onset of symptoms was 3:00 PM today, with an on going course since that time. The symptoms are described to be of moderate severity. The patient describes the quality and location of the symptoms as the following: "I'm in Af ib and my chest hurts". The patient also complains of AFib and body aches. Patient denies any other symptoms at this time. Care prior to arrival was not reported. The pt came to the ED with similar symptoms yesterday. His symptoms were improved yesterday , but worsened again today, so he came back to the ED. Presently, his pain is a 7/10 in jose rity. The pt has been having symptoms intermittently for the last 2 to 3 years. Breathing an d swallowing worsen symptoms. He takes medication for his symptoms, but does not know which as someone else gives him his medications, including those for blood pressure. He is concern ed as he lives alone and does not want to have a MD. The pt is scheduled to establish care w ith a new PCP on 10/23/18. He has never had a cardiac catheterization conducted and his last stress test was 3 years ago. He states that he blacked out 4 times a day. He does not have any clear cause. He does no t have associated palpitations or other symptoms with these episodes. He denies any previou s occurrence. PCP: Mik Diego DO Past Medical History: Diagnosis Date Acute pulmonary [...] of GE junction Hypercholesterolemia 07/08/2013 Hyperlipidemia Hypertension correction (current) use of 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 Obesity, Class I, BMI 30-34.9 07/08/2013 WARD (obstructive sleep apnea) 08/11/2012 does not use CPAP because of the noise Other chronic pain Renal failure Stroke (HCC) TIA (transient ischemic attack) Unspecified visual disturbance reading glasses Past Surgical History: Procedure Laterality Date ABDOMEN SURGERY CHOLECYSTECTOMY CHOLECYSTECTOMY, LAPAROSCOPIC 09/12/2012 Procedure: LAPAROSCOPIC - CHOLECYSTECTOMY; Surgeon: Jevon Vargas DO; Location: [facility] MAIN OR; Service: General; Laterality: N/A; COLONOSCOPY COLONOSCOPY 03/04/2013 Procedure: COLONOSCOPY; Surgeon: Howie Gibson MD; Location: [facility] ENDOSCOPY; Service: Gastroen terology; Laterality: N/A; HERNIA REPAIR 07/03/2013 Procedure: LAPAROSCOPIC - HERNIA - INCISIONAL; Surgeon: Jevon Vargas DO; Location: [facility] MAIN OR; Service: General; Laterality: N/A; KNEE SURGERY rt knee, patella LEG SURGERY LLE OTHER SURGICAL HISTORY UNLISTED PROCEDURE ARTHROSCOPY OTHER SURGICAL HISTORY Left 05/05/2014 SKIN LESION EXCISION - Procedure: EXCISION - LESION - FROZEN SECTION; Surgeon: Sy murcia MD; Location: [facility] MAIN OR; Service: Plastics; Laterality: Left; forearm SKIN BIOPSY SKIN CANCER EXCISION Left 10/10/2012 Procedure: EXCISION - SKIN CANCER; Surgeon: Sy Fierro MD; Location: [facility] MAIN OR; Service: Plastics; Laterality: Left; upper arm and upper back w/frozen section UPPER GASTROINTESTINAL ENDOSCOPY UPPER GASTROINTESTINAL ENDOSCOPY 03/03/2013 Procedure: ESOPHAGOGASTRODUODENOSCOPY; Surgeon: Howie Gibson MD; Location: [facility] ENDOSCOPY; rvice: Gastroenterology; Laterality: N/A; Prior to Admission medications Medication Sig Start Date End Date Taking? Authorizing Provider apixaban (ELIQUIS) 5 mg tablet Take 1 tablet by mouth 2 (two) times daily. 09/14/18 Yes Pilar Conteh MD ARIPiprazole (ABILIFY) 5 mg tablet Take 1 tablet by mouth daily for 30 days. 09/15/18 10/15/18 Yes Noble Conteh MD aspirin 81 MG tablet Take 1 tablet by mouth daily. 09/14/18 Yes Noble Conteh MD budesonide-formoterol (SYMBICORT) 160-4.5 mcg/puff inhaler Inhale 2 puffs into the lungs 2 (two) times daily. 09/14/18 09/14/19 Yes Noble Conteh MD carvedilol (COREG) 6.25 mg tablet Take 1 tablet by mouth 2 (two) times daily with meals. 09/14/1809/14/19 Yes Noble Conteh MD fenofibrate 160 mg tablet Take 1 tablet by mouth daily. 09/14/18 Yes Noble Conteh MD insulin aspart (NOVOLOG FLEXPEN) 100 units/mL injection pen Inject 12 Units into the skin 3 (three) times daily before meals. 09/21/18 Yes Provider Unknown Conversion Transaction insulin detemir (LEVEMIR FLEXTOUCH) 100 units/mL injection (pen) Inject 40 Units into the s kin every morning. 09/15/18 09/15/19 Yes Noble Conteh MD lisinopril (PRINIVIL, ZESTRIL) 10 mg tablet Take 10 mg by mouth daily. 09/21/18 Yes Provide r Unknown Conversion Transaction metFORMIN (GLUCOPHAGE) 500 mg tablet Take 1 tablet by mouth 2 (two) times daily with meals. 09/15/18 09/15/19 Yes Noble Conteh MD NIFEdipine (PROCARDIA XL) 60 mg ER tablet Take 1 tablet by mouth daily. 09/14/18 09/14/19 Yes Sukhjinder Conteh MD pravastatin (PRAVACHOL) 80 MG tablet Take 80 mg by mouth nightly. 08/11/12 Yes Provider Unkn own Conversion Transaction tamsulosin (FLOMAX) 0.4 mg CAPS Take 1 capsule by mouth 2 (two) times daily. Administer 30 minutes after the same meal each day. Capsules should be swallowed whole; 09/14/18 Yes Noble Conteh MD Allergies Allergen Reactions Vitamin B12 Rash [...] for sore throat CV/Resp: Positive for chest pain, AFib Negative for huuywcoqj-gz-chliam GI: Negative for abdominal pain, nausea, vomiting, or diarrhea : Negative for urinary problems Musculoskeletal: Positive for body aches Negative for back pain Skin: Negative for rash Neuro/Psych: Negative for headache Endo/heme/Lymph: Negative for easy bruising All other systems reviewed and negative except as noted. Physical Exam Temp: 36.6 C (97.9 F) Pulse: 73 Resp: 20 BP: (!) 143/91 SpO2: 93 % Vital signs interpretation: Hypertensive, otherwise WNL General: Alert, in no apparent distress [...] dry No rash Neuro: Alert, no AMS, pressured speech at baseline, no facial droop No gross motor/sensory deficits Medical Decision Making and Emergency Department Course ED Department Course This patient presents with the chief complaint of chest pain and syncope. On my exam patient is clinically well appearing and non-toxic. There are no signs of emerge nt need for intervention. Differential diagnosis includes but is not limited to ACS (no isch emic ECG changes, given chronicity less likely to be ACS), pneumonia (no fever or cough), PE (no pleuritic chest pain, unilateral leg swelling, hypoxia), PTX/JASWINDER (equal breath sounds), COPD exacerbation (no wheezes), pulmonary edema/CHF (no volume overload), aortic dissection (no pain to back, equal pulses), tamponade (hemodynamically stable), pericarditis/myocardit is (not positional), costochondritis, shingles, musculoskeletal chest wall pain, anxiety, in tra-abdominal process such as PUD/gastritis. For patient's syncope I have considered arrhythmia (NSR here on court recording monitor), ICH (no n euro deficits or KELLEY or trauma), CVA (no neuro deficits), anemia (no GI bleeding), infection (no signs of CUPOLA MECHANIC infection, PNA, UTI, bacteremia), vasovagal (inconsistent history), orthost atic hypotension (no recent fluid losses, dehydration, or suggestive exam). Heart score: 3 Will ordered an EKG, CXR, CBC, CMP, INR, and troponin. Will administer aspirin and treat sy mptomatically. EKG without ischemic changes. Troponin is within normal limits. CMP reveals mild to moder ate hyperglycemia, otherwise no significant abnormalities. Given patient's significant hype rtension, multiple visits for the same thing without clear control and concern for social as pects making it difficult for him to get proper follow-up and care, I feel the patient would be best served admitted to the hospital for further evaluation and treatment. 23:17 Rechecked the pt, updated him on results, and discussed the plan for care. He is agre eable with the plan for admission. 23:[address] Kelly, Hospitalist, who accepts the pt for admission. She does request CT head. 1:[address] Kelly, Hospitalist, who asks that the pt's heart rate be more controlled before he is taken to the Hospitalist floor. We will place nitro paste, as patient did have improvement of his pain and blood pressure with sublingual nitroglycerin. Temp: 36.6 C (97.9 F) Pulse: 63 Resp: 21 BP: (!) 216/95 SpO2: 94 % Medications hydrALAZINE (APRESOLINE) tablet 10 mg (10 mg Oral Given 10/12/18 0109) aspirin chewable tablet 324 mg (324 mg Oral Given 10/11/18 2231) nitroglycerin (NITROSTAT) SL tablet 0.4 mg (0.4 mg Sublingual Given 10/11/18 2325) nitroglycerin (NITRO-BID) 2% ointment 1 inch (1 inch Topical Given 10/12/18 0140) Records Reviewed Old medical records. Previous electrocardiograms. Nursing notes. Previous ED visits for similar and unrelated complaints Laboratory Evaluation Results Procedure Component Value Ref Range Date/Time Troponin I [[id number]] Collected: 10/12/18 0000 Order Status: Completed Specimen: Blood Updated: 10/12/18 0049 Troponin T 0.039 0.00 - 0.04 ng/mL Comprehensive Metabolic Panel [[id number]] (Abnormal) Collected: 10/11/18 2142 Order Status: Completed Specimen: Blood Updated: 10/11/186 Na 136 135 - 145 mmol/L K 3.5 3.5 - 4.9 mmol/L Cl 101 99 - 109 mmol/L CO2 26 23 - 32 mmol/L Anion Gap 13 5 - 20 mmol/L Glucose 293 65 - 99 mg/dL BUN 20 8 - 25 mg/dL Creatinine 1.18 0.70 - 1.30 mg/dL BUN/Creatinine Ratio 17 Calcium 9.2 8.5 - 10.5 mg/dL Protein, Total 6.6 6.3 - 8.2 g/dL Albumin 3.8 3.3 - 4.8 g/dL Globulin 2.8 1.3 - 4.9 g/dL A/G Ratio 1.4 1.0 - 2.4 BILIRUBIN, TOTAL 0.4 0.1 - 1.5 mg/dL ALK PHOS 124 35 - 115 U/L AST 23 10 - 45 U/L ALT 19 10 - 65 U/L Estimated GFR >60 >60 mL/min/1.73m2 Troponin I [[id number]] Collected: 10/11/182141 Order Status: Completed Specimen: Blood Updated: 10/11/182215 Troponin T 0.04 0.00 - 0.04 ng/mL CBC with Differential [[id number]] (Abnormal) Collected: 10/11/182141 Order Status: Completed Specimen: Blood Updated: 10/11/182200 WBC 11.78 3.80 - 11.00 K/uL RBC 5.18 4.20 - 5.70 M/uL Hemoglobin 14.8 13.2 - 17.0 g/dL Hematocrit 43.1 39.0 - 50.0 % MCV 83.3 80.0 - 100.0 fl MCH 28.6 27.0 - 34.0 pg MCHC 34.3 32.0 - 35.5 g/dL RDW-SD 41.1 37 - 53 fl Platelet Count 224 150 - 400 K/uL MPV 7.8 fl Diff Type AUTOMATED % Neutrophils 53.28 % % Lymphocytes 30.94 % Monocyte % 8.79 % Eosinophils % 5.97 % Basophils % 1.02 % Neutrophils, Absolute 6.27 1.90 - 7.40 K/uL Absolute Lymphocytes 3.64 1.00 - 3.90 K/uL Absolute Monocytes 1.04 0.00 - 0.80 K/uL Eosinophils, Absolute 0.70 0.00 - 0.50 K/uL Basophils, Absolute 0.12 0.00 - 0.10 K/uL I personally reviewed the lab results and they have been posted to the chart. Pertinent po sitive and negative findings have been addressed appropriately. Radiology and EKG Evaluation EKG time: 18:10 Rhythm: NSR with PACs Rate: 68 Intervals: normal Left ventricular hypertrophy T wave inversion in lead 3, otherwise no acute ST and T waves abnormalities No acute ischemia. Unchanged compared to prior EKG on 10/10/18 Interpreted by me at time of service Imaging Results CT Head wo Contrast (Final result) Result time 10/12/18 01:04:42 Final result by Rhys Atkinson MD (10/12/18 01:04:42) Narrative: CT HEAD WITHOUT CONTRAST CLINICAL INFORMATION: Evaluation after an abnormal EKG. Fall earlier today. Syncopal episode. COMPARISON: CT HEAD WO CONTRAST (10/10/2018); CT HEAD WO CONTRAST (05/12/2018); CT HEAD WO CONTRAST (06/25/2016); PROCEDURE: Axial images were obtained through the [...] Normal. Paranasal sinuses and mastoid air cells: Near total opacity of the frontal sinuses. Moderate ethmoid air cell mucosal thickening. Remaining paranasal sinuses and mastoid air cells are clear. Calvarium and extracranial soft tissues: Normal. Orbits: Imaged portions of the orbits are normal. Moderate debris/cerumen within the bilateral external auditory canals. IMPRESSION: No acute intracranial findings. No intracranial hemorrhage, mass effect or edema. Signed by: Irina Atkinson Zachary Sign Date/Time: 10/12/2018 1:04 AM XR Chest PA and Lateral (Final result) Result time 10/11/18 22:21:01 Final result by Yuri Donahue MD (10/11/18 22:21:01) Narrative: CHEST PA AND LATERAL CLINICAL INFORMATION: Abnormal EKG. COMPARISON: XR CHEST PA AND LATERAL (10/10/2018); CTA CHEST PULMONARY EMBOLISM W CONTRAST (09/21/2018); XR CHEST 2 VIEW FRONTAL AND LATERAL (09/21/2018); FINDINGS: Heart, lungs and vessels normal. No pneumothorax, pleural effusion or adenopathy. No significant bone abnormality. IMPRESSION: Negative chest. Signed by: Irina Donahue Gordon Sign Date/Time: 10/11/2018 10:21 PM Disposition: FINAL IMPRESSION ICD-10-CM ICD-9-CM 1. Syncope, unspecified syncope type R55 780.2 2. Chest pain, unspecified type R07.9 786.50 3. Hypertension, unspecified type I10 401.9 ED Disposition ED Disposition Condition Comment Admit Clinical impression: Syncope, unspecified syncope type [[id number]] Clinical impression: Chest pain, unspecified type [[id number]] Clinical impression: Hypertension, unspecified type [[id number]] Admitting provider: SURESH HOSPITALIST [[id number]] Expected patient class: Observation [104] Level of service: Medical Discharge Medications: ED Prescriptions None Procedures Gamal Contreras DO 10/12/18 0307 pencer, Malia Gross RN - 10/11/2018 9:02 PM PDTED Triage Note Norah Guzman 62 y.o. male presents in the ED with c/o chest pain and vomiting. Pt reports he was seen here for same yesterday. Reports hx of afib and states pain was a 3 or 4 yesterd ay, but is now a /10. Also reports he has been vomiting all day. States he "blacked out" 4 times today. The patient arrived by public transportation ([employer]) and is alone. Direct Bedded to room 10. Malia Vega RN 10/11/2018 documented in this e ncounter Miscellaneous Notes Plan of Care - Bill Chaves MSW - 10/16/2018 3:48 PM PDTCare Management SNF/LTACH Final Discharge Plan Readmission Risk: HIGH Discharge Plan Planned Disposition: Longterm Facility - SNF Planned Destination: [facility] [place] of Choice: Yes Community Care Provider: Patient/Family Notified: yes Transportation will be provided by: Transportation Date/Time: 1500 Confirmed 3 Qualifying Midnights: yes SNF Authorization Received: yes [facility] Completed: Yes - faxed Exempted Hospital Discharge less than 30 days. Faxed to [facility] [employer] [facility] [employer] [phone] phone. Okay by Ladi Marquez at [facility] SNF to admit. Electronically signed: QUINN MABRY 10/16/2018 15:48 NF Transfer - Louis barrett, Norah Andrea MD - 10/16/2018 3:07 PM PDTFormatting of this note might be different fr om the original. SKILLED/INTERMEDIATE NURSING FACILITY TRANSFER ORDERS Patient: Norah Guzman : 1955 Date of Admission: 10/11/2018 Date of Discharge: 10/16/2018 Primary Care Provider: Mik Diego DO Admitting Provider: Patti Kelly DO Discharging Provider: Norah Duron MD Transferring Medical Center: Receiving Facility: [facility] [place][note 3] Provider after Transfer: Mireya Pack NURSE ASSESSMENT Recent Height & Weight Height: 180.3 cm (5' 11") Weight: 99.7 kg (219 lb 14.4 oz) Body mass index is 30.67 kg/m. Allergies Allergies Allergen Reactions Nitroglycerin Swelling Tongue swelling Vitamin B12 Rash Rash Active Infections No active infections Active Isolation Precautions None PHYSICIAN REPORT Discharge Diagnoses Principal Problem: Other chest pain Active Problems: Syncope Uncontrolled hypertension Type 2 diabetes mellitus with hyperglycemia Anxiety Chronic anticoagulation Consultants None Operations/Major Procedures None Advance Care Planning Code status: Attempt CPR Code status discussed with: Patient Name of discussant: Norah Guzman Date discussed: 10/11/2018 Advance Care Planning documents included: None PHYSICIAN TRANSFER ORDERS Activity Weight bearing as tolerated Therapies PT evaluation and management OT evaluation and management HEALTHCARE MARKETER evaluation and management for: Impaired Speech/Language/Cognition/Communication Diet Diet and Supplements Diet Diet consistent carb; 60 gm CARB/Meal; fat and cholesterol modified; Effective Now Number of Occurrences: Until Specified Order Questions: Type Diet consistent carb Carbohydrate restrictions 60 gm CARB/Meal Fat or cholesterol modifications fat and cholesterol modified Aspiration Precautions Not applicable Respiratory Care Oxygen Therapy Not applicable Noninvasive Positive Pressure Ventilation Not applicable Other Respiratory Orders Not applicable Bladder Care Urinary Catheter Management Not applicable Urinary Retention Assessment and Management Not applicable Lines, Ostomies, and Drains (to be managed by nursing protocol) IV Access Not applicable Dialysis Access Not applicable Ostomies Not applicable Drains Not applicable Wound Care General Not applicable Wound Vac Management Not applicable Labs/Imaging Finger Stick Glucose Checks Before each meal and at bedtime PT/INR Monitoring Not applicable Other Studies Not applicable Recommended Facility Nursing Protocols and Procedures Activity program Fall precautions Hypoglycemia management Medication Orders New Medications Details Order Next Dose Due acetaminophen 325 mg tablet Take 2 tablets by mouth every 4 hours as needed for Pain (or fever >= 38.6 C (101.5 F)). aka: TYLENOL By: Norah Duron MD Quant: 30 tablet docusate sodium 100 mg capsule Take 1 capsule by mouth Twice daily as needed for Constipation. aka: COLACE By: Norah Duron MD Quant: 30 capsule hydrALAZINE 25 mg tablet Take 1 tablet by mouth 2 times daily. aka: APRESOLINE By: Norah Duron MD Quant: 60 tablet insulin lispro 100 units/mL injection (vial) Inject 5 Units under the skin 3 times daily (with meals). aka: humaLOG By: Norah Duron MD Quant: 10 mL LORazepam 0.5 mg tablet Take 1 tablet by mouth 3 times daily as needed for Anxiety. aka: ATIVAN By: Norah Duron MD Quant: 30 tablet Changed Medications Details Order Next Dose Due budesonide-formoterol 160-4.5 mcg/puff inhaler Inhale 2 puffs into the lungs 2 times daily. What changed: medication strength when to take this aka: SYMBICORT By: Norah Duron MD Quant: 1 Inhaler carvedilol 12.5 mg tablet Take 1 tablet by mouth 2 times daily (with breakfast & dinner). What changed: medication strength how much to take when to take this aka: COREG By: Norah Duron MD Quant: 60 tablet insulin aspart 100 units/mL injection pen Inject 12 Units under the skin 3 times daily (before meals). What changed: medication strength aka: NOVOLOG FLEXPEN By: Norah Duron MD Quant: 2 pen insulin detemir 100 units/mL injection (pen) Inject 55 Units under the skin every morning. What changed: medication strength how much to take aka: LEVEMIR FLEXTOUCH By: Norah Duron MD Quant: 15 mL lisinopril 10 mg tablet Take 2 tablets by mouth Daily. What changed: how much to take aka: PRINIVIL, ZESTRIL By: Norah Duron MD Quant: 30 tablet metFORMIN 500 mg tablet Take 1 tablet by mouth 2 times daily (with breakfast & dinner). What changed: when to take this aka: GLUCOPHAGE By: Norah Duron MD Quant: 60 tablet Unchanged Medications Details Order Next Dose Due apixaban 5 mg tablet Take 1 tablet by mouth 2 times daily. aka: ELIQUIS By: Norah Duron MD Quant: 60 tablet ARIPiprazole 5 mg tablet Take 1 tablet by mouth Daily for 30 days. aka: ABILIFY By: Norah Duron MD Quant: 30 tablet aspirin 81 MG tablet Take 1 tablet by mouth Daily. By: Norah Duron MD Quant: 30 tablet fenofibrate 160 mg tablet Take 1 tablet by mouth Daily. By: Norah Duron MD Quant: 30 tablet NIFEdipine 60 MG 24 hr tablet Take 1 tablet by mouth Daily. aka: ADALAT CC Start: 10/17/2018 By: Norah Duron MD Quant: 30 tablet pravastatin 80 MG tablet Take 1 tablet by mouth nightly. aka: PRAVACHOL By: Norah Duron MD Quant: 30 tablet tamsulosin 0.4 mg Caps Take 1 capsule by mouth 2 times daily. aka: FLOMAX By: oNrah Duron MD Quant: 60 capsule TB screening: Upon admission, the 1st and 2nd step TST will be done as per protocol if the resident has no history of TB or a past positive TST. A pharmacist may substitute an equivalent prescription based on the facility or insurance f ormulary as needed unless otherwise specified by the ordering physician. Please write "SIERRA" (Dispense as written) if a medication should not be substituted. Please make sure to associate a diagnosis for medications that are being continued upon tra nsfer, enter a stop date for antibiotic orders, and include a sig with dose, route, and sche dule for each medication. Follow-Up Appointments House provider in 3-5 days with your new PCP on 10/23/2018 as clayled previously [address] [address] Certification I certify that the following level of post-hospital care is medically necessary on a contin uing basis for any of the conditions for which he received care during this hospitalization: Skilled (Longterm Facility with 24-hour skilled RN service) Electronically signed by: Norah Duron MD 10/16/2018 15:08 NURSING FACILITY USE ONLY Admitting orders verbally reviewed with Admitting Physician: Orders were reviewed and ruth ann fied where appropriate and approved: RN signature: Date: Time: Physician's signature: Date: Time: lan of Care - Marilyn Snyder, PT - 10/15/2018 11:13 AM PDTPhysical Therapy Initial Evaluation Note Recommended discharge disposition: half-way facility Post discharge physical therapy recommendation: home health Barriers to community-based discharge ? None ? Cognitive deficits ? Physical deficits ? Level of assist for self-care ? Level of assist for mobility ? Equipment needs ? Lack of family support ? Ho me design ? Precautions ? Neurologic impairment ? Vision ? Pain ? Fal l risk ? Finances ? Other Plan Planned Therapy Interventions: balance training, bed mobility training, gait training, home exercise program, motor coordination training, neuromuscular re-education, strengthening, t ransfer training Therapy Frequency: 3 times/wk for 7 days PT reassessment due STG Review Date: 10/22/18 Next visit information: 10/15; Deconditioning Summary: Pt is a 62 yo M admitted for c/o chest pain, syncope, and LOC with PMH of syncope , HTN, DM, anxiety, chronic anticoagulation, developmental delay, and extensive hx of falls. Pt presents with decreased LE strength, impaired LE sensation, and balance impairments all of which are increasing the pts burden of care. [place] revealed pt is at high risk for falls at , consistent with hx. Pt ambulation without use of AD presented unsafe requir ing assistance for deviation and change of direction. Ambulation with FWW improved pt?s safe ty and efficiency in gait however pt will benefit from further AD training. Future PT to con tinue LE strengthening, begin balance training, and reinforce use with AD. Pt will benefit f rom further skilled PT so that pt may lessen their burden of care and become more independen t in all mobility. Assessment of Patient Status Impairments Found (describe specific impairments): functional endurance/activity tolerance, gait, locomotion, and balance, neuromotor, muscle performance Home Environment Living Environment Lives With: alone Living Arrangements: apartment Home Accessibility: tub/shower is not walk in Number of Stairs to Enter Home: 0 Number of Stairs Within Home: 0 Transportation Available: other (see comments)(dial a ride) Living Environment Comment: Pt has caregiver 2x/wk for 2 hours who completes cooking/cleani ng; groceries obtained from [employer]; pt completes laundry outside of home independe ntly Prior Function Functional Level Prior Transferring: independent Ambulation: independent Toileting: independent Bathing: independent Dressing: independent Eating: independent Equipment Currently Used at Home: none(CPAP non compliant, no AD use for mobility) Prior Functional Level Comment: Pt with hx of falling. RN expressing concern for medicatio n management. Precautions Precautions Precaution Comment: bp monitor, glucose monitor Precautions/Limitations: falls ROM baseline limitations B shoulder flexion/abd less than 120 without functional limitation, BL E WFL Strength Grossly 3+/5 Cognition Cognitive Assessment Cognitive Comments: recall 3/3; good command following Additional Documentation: orientation Orientation: person, place, situation Speech: garbled, slurred(baseline) Sensory Sensory Assessment Sensation Comments: baseline intermittent distal LE neuropathy, no change in sensation repo rted Vision Vision Assessment Vision Comments: uses reading glasses intermittently FUNCTIONAL MOBILITY Bed Mobility Assistive Device: HOB elevated Sidelying to Sit, Level of [place]: modified independent Transfers Sit-Stand, Level of [place]: supervised Stand-Sit, Level of [place]: modified independent [id number], Assistive Device: none Gait shuffle, significant R path deviation with and without AD, inconsistent aaron, trunk flex ion w/ AD, inc wb on UE in AD Level of [place]: minimal assist (75% patient effort)(with and without AD) Assistive Device: gait belt, 2 wheeled walker (FWW) Distance (feet): [id number] Balance Balance Additional Documentation: Tinetti (group) Goals Reflects last filed data and may be from multiple contributors. All Transfers Goal STG Status: new STG [place] Level: modified independent STG Assistive Device: none Gait Goal STG Status: new STG [place] Level: modified independent STG Assistive Device: (LRAD) STG Distance (feet): 250, 500 Additional Goal #1 STG Status: new STG: Pt will score at least 24 on [place]etti Assessment lan of Care - Natalie Hearn RN - 10/15/2018 12:10 AM PDT Problem: Fall Injury Risk Goal: [...] progressing Goal: Rounds/Family Conference Outcome: Ongoing, progressing Problem: Skin Injury Risk Increased Goal: Skin Health and Integrity Outcome: Ongoing, progressing lan of [facility] - Sanjuanita Whitaker MSW - 10/14/2018 9:35 AM PDTCare Management Initial Assessment Readmission Risk: HIGH Status Prior to Admission or Illness Arrival From: admitted as an inpatient Lives With: (P) alone Living Arrangements: (P) apartment Caregiver For: (P) no one Patient s Caregiver: (P) homecare agency (specify) Functional Status: Independent Transportation Available: (P) other (see comments)([employer] ([facility])) Able to return to prior living: (P) other (see comments)(Pending clinical course) Care Management Concerns Last discharge date: 09/13/2018 Readmission Within Last 30 Days: (P) (Yes) PCP: Mik Diego DO Pt reported that previous PCP retired and has an appointment to establish new PCP on 10/23/18, but does not remember the name of the MD. Contact Information Family Contact Information: Name: (P) (Sammi Kohler, ex in laws) Phone: (P) ([phone]) DC Needs Assessment Anticipated Changes Related to Illness: none Concerns to be Addressed: no discharge needs identified Services Anticipated at Discharge: home health care Equipment Used at Home: CPAP Transportation Needs: Pt uses [employer] for transportation Initial Plan Anticipated Discharge Disposition: home Notes: Pt reported that he was independent with ADL's, IADL's and mobility prior to admission. Pt denied previous outpatient OT/PT services, dialysis, home O2 and having DME prior to adm ission. Pt reported that he has paid caregivers with [facility] and has 20 hrs/month. Pt reported that he was taking Coumadin and his previous PCP was monitoring and the new one PCP will follow when he has his appointment on 10/23/18. Pt reported that he was unsure of if he still has Medicaid. CM follow up with Rena with [employer] ([employer]) on Monday. Pt may need assistance with medication costs at d ischarge pending Medicaid status. Pt denied having Health Care Directive and POA. AMMONIUM NITRATE CRYSTALLIZER CM provided Healthcare Directive paper work per pt request. Electronically signed: QUINN JUAREZ 10/14/2018 9:35 lan of Toney Harrell RN - 10/14/2018 6:08 AM PDT Problem: Fall Injury Risk Goal: Absence of Fall and Fall-Related Injury Outcome: Ongoing, progressing Note: Encouraged patient to call if he needed anything. Encouraged to not get up without nurse. Problem: Adult Inpatient Plan of Care Goal: Optimal Comfort and Wellbeing Outcome: Ongoing, progressing Note: Provided attentive listening. Encouraged patient to express fears. Provided patient with mu ltiple anxiety relief measures. lan of Genna Penn RN - 10/13/2018 5:43 PM PDT Problem: Fall Injury Risk Goal: Absence of Fall and Fall-Related Injury Outcome: Ongoing, progressing Pt will be free of falls throughout shift Problem: Adult Inpatient Plan of Care Goal: Patient-Specific Goal Outcome: Ongoing, progressing Pt aware of fluctuating glucose level. Educated about importance of following medication r egimen at home and consulting with PCP while ill. lan of Mireya Powers RN - 10/13/2018 1:55 AM PDTPatie nt will remain free of falls while in the hospital. Problem: Fall Injury Risk Goal: Absence of Fall and Fall-Related Injury Outcome: Ongoing, progressing lan of Genna Alvarado RN - 10/12/2018 6:31 PM PDT Problem: Fall Injury Risk Goal: Absence of Fall and Fall-Related Injury Outcome: Ongoing, progressing Reinforced to use call light. Room clear of clutter and appropriate lighting available. Problem: Skin Injury Risk Increased Goal: Skin Health and Integrity Outcome: Ongoing, progressing Pt dry and clean. Pt able to complete ADLs and basic cares. lan of Starla Duque RN - 10/12/2018 10:43 AM PDTWhile doing bedside report with the night cleaner nurse Patients b/p was 230's /120. Justino celinadaly was just getting started on a nitro drip and had nitro paste on his chest. 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 When asking the patient what his quang ction to nitro was he said that his tongue swells and that he feels like his tongue is swoll en now and it was hard to talk. The nitro drip was stopped. MD notified.Patient oxygen leve l was normal but he was nauseated and coughing up thick secretions and very diaphoretic. Dr Fuentes orders a one time dose of benadryl and solumedrol and to start a Nicardipine drip 5 mg/hr. ICU MD was notified and changed the solumedrol to Dexamethasone and added Pepcid. Aft er receiving the rescue medication the patient felt better and he was able speak more clearl y. Patient at this time was also having issues with urinating and was bladder scanned. He kelley d 815 ml lopez catheter was placed. Patient was started on a Nicardipine drip. Patient b/p i mproved and the patient was transferred to the 9th floor. lan of Care - Kesha Gil RN - 10/12/2018 3:50 AM PDT Problem: Fall Injury Risk Goal: Absence of Fall and Fall-Related Injury Outcome: Ongoing, progressing Patient is AAO x 4. Fall risk signage outside door. Walking paths in room are uncluttered w ith adequate lighting. Call light and overbed table within reach. Wheels locked and x2 side rails up. Non-skid footwear is on patient. Hourly rounding on patient. Electronically iggy d by Kesha Gil RN at 10/12/2018 3:52 AM PDTdocumented in this encounter Plan of Treatment +--------+---------+ + + + | Date | Type | Specialty | Care Team | Description | +--------+---------+ + + + | 09/10/ | Office | Geriatric Medicine | Mireya Pack, | | 2019 | Visit | | [facility] [address] | | | | | | [place] [address] [place] [address], | | | | | | [place] [address] | | | | | | [phone] | | | | | | | | +--------+---------+ + + + | 09/29/ | Office | Urology | Mireya Pack, | | 2019 | Visit | | [facility] [address] | | | | | | [place] [address] [place], | | | | | | [place] [address] | | | | | | [phone] | | | | | | | | | | | | Toy Wild W, DO | | | | | | [address] | | | | | | [place] [address] | | | | | | [phone] | | | | | | | | +--------+---------+ + + + + +------+--------+ + + | Name | Type | Priori | Associated Diagnoses | Date/Time | | | | ty | | | + +------+--------+ + + | ED INFORMATION | [facility] | Routin | | 10/11/2018 6:02 PM | | EXCHANGE | | e | | PDT | + +------+--------+ + + documented as of this encounter Procedures + +--------+ + + + | Procedure Name | Priori | Date/Time | Associated Diagnosis | Comments | | | ty | | | | + +--------+ + + + | POC GLUCOSE (NON | Routin | 10/16/2018 | | Results for this | | ORD) | e | 11:09 AM | | procedure are in the | | | | PDT | | results section. | + +--------+ + + + | POC GLUCOSE (NON | Routin | 10/16/2018 | | Results for this | | ORD) | e | 8:20 AM | | procedure are in the | | | | PDT | | results section. | + +--------+ + + + | POC GLUCOSE (NON | Routin | 10/16/2018 | | Results for this | | ORD) | e | 6:25 AM | | procedure are in the | | | | PDT | | results section. | + +--------+ + + + | XR CHEST 1 VIEW | Routin | 10/16/2018 | | Results for this | | | e | 5:25 AM | | procedure are in the | | | | PDT | | results section. | + +--------+ + + + | CBC WITH | Routin | 10/16/2018 | | Results for this | | DIFFERENTIAL | e | 3:58 AM | | procedure are in the | | | | PDT | | results section. | + +--------+ + + + | BASIC METABOLIC | Routin | 10/16/2018 | | Results for this | | PANEL | e | 3:58 AM | | procedure are in the | | | | PDT | | results section. | + +--------+ + + + | POC GLUCOSE (NON | Routin | 10/16/2018 | | Results for this | | ORD) | e | 3:45 AM | | procedure are in the | | | | PDT | | results section. | + +--------+ + + + | POC GLUCOSE (NON | Routin | 10/15/2018 | | Results for this | | ORD) | e | 8:50 PM | | procedure are in the | | | | PDT | | results section. | + +--------+ + + + | POC GLUCOSE (NON | Routin | 10/15/2018 | | Results for this | | ORD) | e | 5:02 PM | | procedure are in the | | | | PDT | | results section. | + +--------+ + + + | POC GLUCOSE (NON | Routin | 10/15/2018 | | Results for this | | ORD) | e | 11:16 AM | | procedure are in the | | | | PDT | | results section. | + +--------+ + + + | POC GLUCOSE (NON | Routin | 10/15/2018 | | Results for this | | ORD) | e | 7:48 AM | | procedure are in the | | | | PDT | | results section. | + +--------+ + + + | POC GLUCOSE (NON | Routin | 10/15/2018 | | Results for this | | ORD) | e | 6:16 AM | | procedure are in the | | | | PDT | | results section. | + +--------+ + + + | CBC WITH | Routin | 10/15/2018 | | Results for this | | DIFFERENTIAL | e | 6:12 AM | | procedure are in the | | | | PDT | | results section. | + +--------+ + + + | BASIC METABOLIC | Routin | 10/15/2018 | | Results for this | | PANEL | e | 6:12 AM | | procedure are in the | | | | PDT | | results section. | + +--------+ + + + | POC GLUCOSE (NON | Routin | 10/15/2018 | | Results for this | | ORD) | e | 1:13 AM | | procedure are in the | | | | PDT | | results section. | + +--------+ + + + | POC GLUCOSE (NON | Routin | 10/14/2018 | | Results for this | | ORD) | e | 7:19 PM | | procedure are in the | | | | PDT | | results section. | + +--------+ + + + | POC GLUCOSE (NON | Routin | 10/14/2018 | | Results for this | | ORD) | e | 5:26 PM | | procedure are in the | | | | PDT | | results section. | + +--------+ + + + | GLUCOSE, RANDOM | STAT | 10/14/2018 | | Results for this | | | | 3:15 PM | | procedure are in the | | | | PDT | | results section. | + +--------+ + + + | POC GLUCOSE (NON | Routin | 10/14/2018 | | Results for this | | ORD) | e | 2:57 PM | | procedure are in the | | | | PDT | | results section. | + +--------+ + + + | POC GLUCOSE (NON | Routin | 10/14/2018 | | Results for this | | ORD) | e | 2:35 PM | | procedure are in the | | | | PDT | | results section. | + +--------+ + + + | GLUCOSE, RANDOM | STAT | 10/14/2018 | | Results for this | | | | 11:15 AM | | procedure are in the | | | | PDT | | results section. | + +--------+ + + + | POC GLUCOSE (NON | Routin | 10/14/2018 | | Results for this | | ORD) | e | 10:56 AM | | procedure are in the | | | | PDT | | results section. | + +--------+ + + + | POC GLUCOSE (NON | Routin | 10/14/2018 | | Results for this | | ORD) | e | 7:57 AM | | procedure are in the | | | | PDT | | results section. | + +--------+ + + + | GLUCOSE, RANDOM | STAT | 10/14/2018 | | Results for this | | | | 5:01 AM | | procedure are in the | | | | PDT | | results section. | + +--------+ + + + | POC GLUCOSE (NON | Routin | 10/14/2018 | | Results for this | | ORD) | e | 4:23 AM | | procedure are in the | | | | PDT | | results section. | + +--------+ + + + | TROPONIN I | Routin | 10/14/2018 | | Results for this | | | e | 3:01 AM | | procedure are in the | | | | PDT | | results section. | + +--------+ + + + | HEMOGLOBIN A1C | Routin | 10/14/2018 | | Results for this | | | e | 3:01 AM | | procedure are in the | | | | PDT | | results section. | + +--------+ + + + | POC GLUCOSE (NON | Routin | 10/13/2018 | | Results for this | | ORD) | e | 8:58 PM | | procedure are in the | | | | PDT | | results section. | + +--------+ + + + | TROPONIN I | Routin | 10/13/2018 | | Results for this | | | e | 8:42 PM | | procedure are in the | | | | PDT | | results section. | + +--------+ + + + | POC GLUCOSE (NON | Routin | 10/13/2018 | | Results for this | | ORD) | e | 4:30 PM | | procedure are in the | | | | PDT | | results section. | + +--------+ + + + | XR CHEST 1 VIEW | Routin | 10/13/2018 | | Results for this | | | e | 4:13 PM | | procedure are in the | | | | PDT | | results section. | + +--------+ + + + | TROPONIN I | Routin | 10/13/2018 | | Results for this | | | e | 3:17 PM | | procedure are in the | | | | PDT | | results section. | + +--------+ + + + | ECG 12 LEAD | Routin | 10/13/2018 | | Results for this | | | e | 2:59 PM | | procedure are in the | | | | PDT | | results section. | + +--------+ + + + | GLUCOSE, RANDOM | STAT | 10/13/2018 | | Results for this | | | | 11:47 AM | | procedure are in the | | | | PDT | | results section. | + +--------+ + + + | POC GLUCOSE (NON | Routin | 10/13/2018 | | Results for this | | ORD) | e | 11:38 AM | | procedure are in the | | | | PDT | | results section. | + +--------+ + + + | TROPONIN I | Routin | 10/13/2018 | | Results for this | | | e | 10:55 AM | | procedure are in the | | | | PDT | | results section. | + +--------+ + + + | ECHO COMPLETE | Routin | 10/13/2018 | | Results for this | | | e | 10:48 AM | | procedure are in the | | | | PDT | | results section. | + +--------+ + + + | POC GLUCOSE (NON | Routin | 10/13/2018 | | Results for this | | ORD) | e | 8:06 AM | | procedure are in the | | | | PDT | | results section. | + +--------+ + + + | TROPONIN I | Routin | 10/13/2018 | | Results for this | | | e | 7:14 AM | | procedure are in the | | | | PDT | | results section. | + +--------+ + + + | POC GLUCOSE (NON | Routin | 10/13/2018 | | Results for this | | ORD) | e | 3:05 AM | | procedure are in the | | | | PDT | | results section. | + +--------+ + + + | TROPONIN I | Routin | 10/13/2018 | | Results for this | | | e | 2:50 AM | | procedure are in the | | | | PDT | | results section. | + +--------+ + + + | TROPONIN I | Routin | 10/12/2018 | | Results for this | | | e | 10:49 PM | | procedure are in the | | | | PDT | | results section. | + +--------+ + + + | GLUCOSE, RANDOM | STAT | 10/12/2018 | | Results for this | | | | 9:16 PM | | procedure are in the | | | | PDT | | results section. | + +--------+ + + + | POC GLUCOSE (NON | Routin | 10/12/2018 | | Results for this | | ORD) | e | 9:12 PM | | procedure are in the | | | | PDT | | results section. | + +--------+ + + + | TROPONIN I | Routin | 10/12/2018 | | Results for this | | | e | 7:01 PM | | procedure are in the | | | | PDT | | results section. | + +--------+ + + + | POC GLUCOSE (NON | Routin | 10/12/2018 | | Results for this | | ORD) | e | 5:47 PM | | procedure are in the | | | | PDT | | results section. | + +--------+ + + + | TROPONIN I | Routin | 10/12/2018 | | Results for this | | | e | 2:55 PM | | procedure are in the | | | | PDT | | results section. | + +--------+ + + + | POC GLUCOSE (NON | Routin | 10/12/2018 | | Results for this | | ORD) | e | 2:10 PM | | procedure are in the | | | | PDT | | results section. | + +--------+ + + + | VAS CAROTID DUPLEX | Routin | 10/12/2018 | | Results for this | | BILATERAL | e | 2:00 PM | | procedure are in the | | | | PDT | | results section. | + +--------+ + + + | GLUCOSE, RANDOM | STAT | 10/12/2018 | | Results for this | | | | 12:42 PM | | procedure are in the | | | | PDT | | results section. | + +--------+ + + + | POC GLUCOSE (NON | Routin | 10/12/2018 | | Results for this | | ORD) | e | 12:37 PM | | procedure are in the | | | | PDT | | results section. | + +--------+ + + + | TROPONIN I | Routin | 10/12/2018 | | Results for this | | | e | 11:04 AM | | procedure are in the | | | | PDT | | results section. | + +--------+ + + + | POC GLUCOSE (NON | Routin | 10/12/2018 | | Results for this | | ORD) | e | 8:23 AM | | procedure are in the | | | | PDT | | results section. | + +--------+ + + + | POCT GLUCOSE | Routin | 10/12/2018 | | Results for this | | | e | 8:23 AM | | procedure are in the | | | | PDT | | results section. | + +--------+ + + + | TROPONIN I | Routin | 10/12/2018 | | Results for this | | | e | 7:03 AM | | procedure are in the | | | | PDT | | results section. | + +--------+ + + + | LIPID PANEL | Routin | 10/12/2018 | | Results for this | | | e | 3:27 AM | | procedure are in the | | | | PDT | | results section. | + +--------+ + + + | TROPONIN I | Routin | 10/12/2018 | | Results for this | | | e | 3:27 AM | | procedure are in the | | | | PDT | | results section. | + +--------+ + + + | CBC NO DIFFERENTIAL | Routin | 10/12/2018 | | Results for this | | | e | 3:27 AM | | procedure are in the | | | | PDT | | results section. | + +--------+ + + + | COMPREHENSIVE | Routin | 10/12/2018 | | Results for this | | METABOLIC PANEL | e | 3:27 AM | | procedure are in the | | | | PDT | | results section. | + +--------+ + + + | CT HEAD WO CONTRAST | [facility] | 10/12/2018 | | Results for this | | | | 12:48 AM | | procedure are in the | | | | PDT | | results section. | + +--------+ + + + | TROPONIN I | Timed | 10/12/2018 | | Results for this | | | | 12:00 AM | | procedure are in the | | | | PDT | | results section. | + +--------+ + + + | XR CHEST PA AND | [facility] | 10/11/2018 | | Results for this | | LATERAL | | 10:03 PM | | procedure are in the | | | | PDT | | results section. | + +--------+ + + + | TROPONIN I | STAT | 10/11/2018 | | Results for this | | | | 9:42 PM | | procedure are in the | | | | PDT | | results section. | + +--------+ + + + | CBC WITH | STAT | 10/11/2018 | | Results for this | | DIFFERENTIAL | | 9:42 PM | | procedure are in the | | | | PDT | | results section. | + +--------+ + + + | COMPREHENSIVE | STAT | 10/11/2018 | | Results for this | | METABOLIC PANEL | | 9:42 PM | | procedure are in the | | | | PDT | | results section. | + +--------+ + + + | ECG 12 LEAD | Routin | 10/11/2018 | | Results for this | | | e | 6:10 PM | | procedure are in the | | | | PDT | | results section. | + +--------+ + + + | ED INFORMATION | Routin | 10/11/2018 | | | | EXCHANGE | e | 6:02 PM | | | | | | PDT | | | + +--------+ + + + +---+--------+ | | | | | Proced | | | ure | | | Note - | | | Richard, | | | Lab In | | | | | | Hlseve | | | n - | | | | | | 2018 | | | 6:03 | | | PM PDT | | [...] | | | 9 | | | 18:01? | | | SIMÓN, | | | NORAH | | | | | | M?MRN: | | | | | | [id number] | | | [id number] | | | riteri | | | [...] | | | ncy | | | Sep 4, | | [...] | | [facility] | | | [place] | | | [place] | | | [...] | | | /notif | | | [id number] | | | [id number] | | | [id number] | | | [id number] | | | [id number] | | | [id number] | | | 11 | | | PLEASE | | | [...] documented in this encounter Results POC Glucose (10/16/2018 11:09 AM PDT) + + + + + + | Component | Value | Ref Range | Performed | Pathologist | | | | | At | Signature | + + + + + + | Glucose, | 244 (H)Comment: Testing | 65 - 99 mg/dL | [facility] | | | POC | performed at [facility];[address] | | LABORATORY | | | | [address];[place], [place] | | | | | | [address] | | | | + + + + + + + + | Specimen | + + | | + + + + + + + | Performing | Address | City/State/Zipcode | Phone Number | | Organization | | | | + + + + + | [facility] | [address] | [place] [address] | [phone] | + + + + + POC Glucose (10/16/2018 8:20 AM PDT) + + + + + + | Component | Value | Ref Range | Performed | Pathologist | | | | | At | Signature | + + + + + + | Glucose, | 321 (H)Comment: Testing | 65 - 99 mg/dL | [facility] | | | POC | performed at [facility];[address] | | LABORATORY | | | | [address];[place], [place] | | | | | | [address] | | | | + + + + + + + + | Specimen | + + | | + + + + + + + | Performing | Address | City/State/Zipcode | Phone Number | | Organization | | | | + + + + + | [facility] | [address] | [place] [address] | [phone] | + + + + + POC Glucose (10/16/2018 6:25 AM PDT) + + + + + + | Component | Value | Ref Range | Performed | Pathologist | | | | | At | Signature | + + + + + + | Glucose, | 194 (H)Comment: Testing | 65 - 99 mg/dL | [facility] | | | POC | performed at [facility];[address] | | LABORATORY | | | | [address];[place], [place] | | | | | | [address] | | | | + + + + + + + + | Specimen | + + | | + + + + + + + | Performing | Address | City/State/Zipcode | Phone Number | | Organization | | | | + + + + + | [facility] | [address] | [place] [address] | [phone] | + + + + + XR Chest 1 Vw (10/16/2018 5:25 AM PDT) + + | Specimen | + + | | + + + + + | Narrative | Performed At | + + + | CHEST ONE VIEW CLINICAL INFORMATION: Respiratory status. | [facility] | | Concern for pneumonia. COMPARISON: XR CHEST 1 VIEW (10/13/2018); XR | | | CHEST PA AND LATERAL (10/11/2018); XR CHEST PA AND LATERAL (10/10/2018); | | | CTA CHEST PULMONARY EMBOLISM W CONTRAST (09/21/2018); XR CHEST 2 VIEW | | | FRONTAL AND LATERAL (09/21/2018); FINDINGS: Cardiomediastinal | | | contours are within normal limits. Lungs are clear. No large | | | effusion. No visible pneumothorax. No acute bony abnormalities. | | | IMPRESSION: Negative chest. Signed by: Irina Atkinson, | | | Rhys Sign Date/Time: 10/16/2018 5:47 AM | | + + + + + | Procedure Note | + + | Richard, Rad Results In - 10/16/2018 5:51 AM PDT | | CHEST ONE VIEW | | | | CLINICAL INFORMATION: | | Respiratory status. Concern for pneumonia. | | | | COMPARISON: | | XR CHEST 1 VIEW (10/13/2018); XR CHEST PA AND LATERAL (10/11/2018); XR | | CHEST PA AND LATERAL (10/10/2018); CTA CHEST PULMONARY EMBOLISM W | | CONTRAST (09/21/2018); XR CHEST 2 VIEW FRONTAL AND LATERAL (09/21/2018); | | | | FINDINGS: | | Cardiomediastinal contours are within normal limits. Lungs are clear. | | No large effusion. No visible pneumothorax. No acute bony | | abnormalities. | | | | IMPRESSION: | | Negative chest. | | | | | | | | Signed by: Irina Atkinson, Rhys | | Sign Date/Time: 10/16/2018 5:47 AM | + + + +---------+ + + | Performing | Address | City/State/Zipcode | Phone Number | | Organization | | | | + +---------+ + + | [facility] | | | | + +---------+ + + Basic Metabolic Panel (10/16/2018 3:58 AM PDT) + + + + + [...] + + + + | Glucose | 175 (H) | 65 - 99 mg/dL | [facility] | | | | | | LABORATORY | | + + + + + + | BUN | 19 | 8 - 25 mg/dL | [facility] | | | | | | LABORATORY | | + + + + + + | Creatinine | 0.7 | 0.70 - 1.30 | [facility] | | | | | mg/dL | LABORATORY | | + + + + + + | BUN/Creatin | 27 | | [facility] | | | ine [...] | | | | | performed at [facility], [address] | | | | | | [facility], | | | | | | [place] [address] | | | | + + + + + + + + | Specimen | + + | Blood | + + + + + + + | Performing | Address | City/State/Zipcode | Phone Number | | Organization | | | | + + + + + | [facility] | [address] | [place] [address] | [phone] | + + + + + CBC with Differential (10/16/2018 3:58 AM PDT) + + + + + + | Component | Value | Ref Range | Performed | Pathologist | | | | | At | Signature | + + + + + + | WBC | 11.12 (H) | 3.80 - 11.00 | [facility] [...] + + + + | Hematocrit | 44.5 | 39.0 - 50.0 % | [facility] | | | | | | LABORATORY | | + + + + + + | MCV | 83.9 | 80.0 - 100.0 fl | [facility] | | | | | | LABORATORY | | + + + + + + | MCH | 28.8 | 27.0 - 34.0 pg | [facility] | | | | | | LABORATORY | | + + + + + + | MCHC | 34.3 | 32.0 - 35.5 | [facility] | | | | | g/dL | LABORATORY | | + + + + + + | RDW-SD | 41.6 | 37 - 53 fl | [facility] | | | | | | LABORATORY | | + + + + + + | Platelet | 218 | 150 - 400 K/uL | [facility] [...] + + + + | % | 56.21 | % | [facility] | | | Neutrophils | | | LABORATORY | | + + + + + + | % | 29.97 | % | [facility] | | | Lymphocytes | | | LABORATORY | | + + + + + + | Monocyte % | 12.38 | % | [facility] | | | | | | LABORATORY | | + + + + + + | Eosinophils | 1.32 | % | [facility] | | | % | | | LABORATORY | | + + + + + + | Basophils % | 0.12 | % | [facility] | | | | | | LABORATORY | | + + + + + + | Neutrophils | 6.25 | 1.90 - 7.40 | [facility] | | | , Absolute | | K/uL | LABORATORY | | + + + + + + | Absolute | 3.33 | 1.00 - 3.90 | [facility] | | | Lymphocytes | | K/uL | LABORATORY | | + + + + + + | Absolute | 1.38 (H) | 0.00 - 0.80 | [facility] | | | Monocytes | | K/uL | LABORATORY | | + + + + + + | Eosinophils | 0.15 | 0.00 - 0.50 | [facility] | | | , Absolute | | K/uL | LABORATORY | | + + + + + + | Basophils, | 0.01Comment: Testing | 0.00 - 0.10 | [facility] | | | Absolute | performed at [facility], [address] | K/uL | LABORATORY | | | | [place], | | | | | | [place] [address] | | | | + + + + + + + + | Specimen | + + | Blood | + + + + + + + | Performing | Address | City/State/Zipcode | Phone Number | | Organization | | | | + + + + + | [facility] | [address] | [place] [address] | [phone] | + + + + + POC Glucose (10/16/2018 3:45 AM PDT) + + + + + + | Component | Value | Ref Range | Performed | Pathologist | | | | | At | Signature | + + + + + + | Glucose, | 153 (H)Comment: Testing | 65 - 99 mg/dL | [facility] | | | POC | performed at [facility];[address] | | LABORATORY | | | | [address];[place] | | | | | | [address] | | | | + + + + + + + + | Specimen | + + | | + + + + + + + | Performing | Address | City/State/Zipcode | Phone Number | | Organization | | | | + + + + + | [facility] | [address] | [place] [address] | [phone] | + + + + + POC Glucose (10/15/2018 8:50 PM PDT) + + + + + + | Component | Value | Ref Range | Performed | Pathologist | | | | | At | Signature | + + + + + + | Glucose, | 243 (H)Comment: Testing | 65 - 99 mg/dL | [facility] | | | POC | performed at [facility];[address] | | LABORATORY | | | | [address];[place], [place] | | | | | | [address] | | | | + + + + + + + + | Specimen | + + | | + + + + + + + | Performing | Address | City/State/Zipcode | Phone Number | | Organization | | | | + + + + + | [facility] | [address] | [place] [address] | [phone] | + + + + + POC Glucose (10/15/2018 5:02 PM PDT) + + + + + + | Component | Value | Ref Range | Performed | Pathologist | | | | | At | Signature | + + + + + + | Glucose, | 223 (H)Comment: Testing | 65 - 99 mg/dL | [facility] | | | POC | performed at [facility];[address] | | LABORATORY | | | | [address];[place] | | | | | | [id number] | | | | + + + + + + + + | Specimen | + + | | + + + + + + + | Performing | Address | City/State/Zipcode | Phone Number | | Organization | | | | + + + + + | [facility] | [address] | [place] [address] | [phone] | + + + + + POC Glucose (10/15/2018 11:16 AM PDT) + + + + + + | Component | Value | Ref Range | Performed | Pathologist | | | | | At | Signature | + + + + + + | Glucose, | 231 (H)Comment: Testing | 65 - 99 mg/dL | [facility] | | | POC | performed at [facility];[address] | | LABORATORY | | | | [address];[place] | | | | | | [id number] | | | | + + + + + + + + | Specimen | + + | | + + + + + + + | Performing | Address | City/State/Zipcode | Phone Number | | Organization | | | | + + + + + | [facility] | [address] | [place] [address] | [phone] | + + + + + POC Glucose (10/15/2018 7:48 AM PDT) + + + + + + | Component | Value | Ref Range | Performed | Pathologist | | | | | At | Signature | + + + + + + | Glucose, | 332 (H)Comment: Testing | 65 - 99 mg/dL | [facility] | | | POC | performed at [facility];[address] | | LABORATORY | | | | [address];[place] | | | | | | [address] | | | | + + + + + + + + | Specimen | + + | | + + + + + + + | Performing | Address | City/State/Zipcode | Phone Number | | Organization | | | | + + + + + | [facility] | [address] | [place] [address] | [phone] | + + + + + POC Glucose (10/15/2018 6:16 AM PDT) + + + + + + | Component | Value | Ref Range | Performed | Pathologist | | | | | At | Signature | + + + + + + | Glucose, | 238 (H)Comment: Testing | 65 - 99 mg/dL | [facility] | | | POC | performed at [facility];[address] | | LABORATORY | | | | [address];[place] | | | | | | [address] | | | | + + + + + + + + | Specimen | + + | | + + + + + + + | Performing | Address | City/State/Zipcode | Phone Number | | Organization | | | | + + + + + | [facility] | [address] | [place] [address] | [phone] | + + + + + Basic Metabolic Panel (10/15/2018 6:12 AM PDT) + + + + + [...] + + + + | Glucose | 261 (H) | 65 - 99 mg/dL | [facility] | | | | | | LABORATORY | | + + + + + + | BUN | 32 (H) | 8 - 25 mg/dL | [facility] | | | | | | LABORATORY | | + + + + + + | Creatinine | 0.9 | 0.70 - 1.30 | [facility] | | | | | mg/dL | LABORATORY | | + + + + + + | BUN/Creatin | 36 | | [facility] | | | ine [...] | | | | | performed at [facility], [address] | | | | | [facility], | | | | | | [place] [address] | | | | + + + + + + + + | Specimen | + + | Blood | + + + + + + + | Performing | Address | City/State/Zipcode | Phone Number | | Organization | | | | + + + + + | [facility] | [address] | [place] [address] | [phone] | + + + + + CBC with Differential (10/15/2018 6:12 AM PDT) + + + + + + | Component | Value | Ref Range | Performed | Pathologist | | | | | At | Signature | + + + + + + | WBC | 13.79 (H) | 3.80 - 11.00 | [facility] | | | | | K/uL | LABORATORY | | + + + + + + | Red Blood | 5.01 | 4.20 - 5.70 | [facility] | | | Cells | | M/uL | LABORATORY | | + + + + + + | Hemoglobin | 14.5 | 13.2 - 17.0 | [facility] | | | | | g/dL | LABORATORY | | + + + + + + | Hematocrit | 42.1 | 39.0 - 50.0 % | [facility] [...] | 34.3 | 32.0 - 35.5 | [facility] | | | | | g/dL | LABORATORY | | + + + + + + | RDW-SD | 40.3 | 37 - 53 fl | [facility] | | | | | | LABORATORY | | + + + + + + | Platelet | 225 | 150 - 400 K/uL | [facility] | | | Count | | | LABORATORY | | + + + + + + | MPV | 8.4 | fl | [facility] | | | | | | LABORATORY | | + + + + + + | Diff Type | AUTOMATED | | [facility] | | | | | | LABORATORY | | + + + + + + | % | 72.43 | % | [facility] | | | Neutrophils | | | LABORATORY | | + + + + + + | % | 18.56 | % | [facility] | | | Lymphocytes | | | LABORATORY | | + + + + + + | Monocyte % | 8.89 | % | [facility] | | | | | | LABORATORY | | + + + + + + | Eosinophils | 0.04 | % | [facility] | | | % | | | LABORATORY | | + + + + + + | Basophils % | 0.08 | % | [facility] | | | | | | LABORATORY | | + + + + + + | Neutrophils | 9.99 (H) | 1.90 - 7.40 | [facility] | | | , Absolute | | K/uL | LABORATORY | | + + + + + + | Absolute | 2.56 | 1.00 - 3.90 | [facility] | | | Lymphocytes | | K/uL | LABORATORY | | + + + + + + | Absolute | 1.23 (H) | 0.00 - 0.80 | [facility] | | | Monocytes | | K/uL | LABORATORY | | + + + + + + | Eosinophils | 0.01 | 0.00 - 0.50 | [facility] | | | , Absolute | | K/uL | LABORATORY | | + + + + + + | Basophils, | 0.01Comment: Testing | 0.00 - 0.10 | [facility] | | | Absolute | performed at [facility], [address] | K/uL | LABORATORY | | | | [address], | | | | | | [place] [address] | | | | + + + + + + + + | Specimen | + + | Blood | + + + + + + + | Performing | Address | City/State/Zipcode | Phone Number | | Organization | | | | + + + + + | [facility] | [address] | [place] [address] | [phone] | + + + + + POC Glucose (10/15/2018 1:13 AM PDT) + + + + + + | Component | Value | Ref Range | Performed | Pathologist | | | | | At | Signature | + + + + + + | Glucose, | 233 (H)Comment: Testing | 65 - 99 mg/dL | [facility] | | | POC | performed at [facility];[address] | | LABORATORY | | | | [address];[place], [place] | | | | | | [address] | | | | + + + + + + + + | Specimen | + + | | + + + + + + + | Performing | Address | City/State/Zipcode | Phone Number | | Organization | | | | + + + + + | [facility] | [address] | [place] [address] | [phone] | + + + + + POC Glucose (10/14/2018 7:19 PM PDT) + + + + + + | Component | Value | Ref Range | Performed | Pathologist | | | | | At | Signature | + + + + + + | Glucose, | 282 (H)Comment: Testing | 65 - 99 mg/dL | [facility] | | | POC | performed at [facility];[address] | | LABORATORY | | | | [address];[place], [place] | | | | | | [address] | | | | + + + + + + + + | Specimen | + + | | + + + + + + + | Performing | Address | City/State/Zipcode | Phone Number | | Organization | | | | + + + + + | [facility] | [address] | [place] [address] | [phone] | + + + + + POC Glucose (10/14/2018 5:26 PM PDT) + + + + + + | Component | Value | Ref Range | Performed | Pathologist | | | | | At | Signature | + + + + + + | Glucose, | 346 (H)Comment: Testing | 65 - 99 mg/dL | [facility] | | | POC | performed at [facility];[address] | | LABORATORY | | | | [address];[place] | | | | | | [address] | | | | + + + + + + + + | Specimen | + + | | + + + + + + + | Performing | Address | City/State/Zipcode | Phone Number | | Organization | | | | + + + + + | [facility] | [address] | [place] [address] | [phone] | + + + + + Glucose, Random (10/14/2018 3:15 PM PDT) + + + + + + | Component | Value | Ref Range | Performed | Pathologist | | | | | At | Signature | + + + + + + | Glucose | 396 (H)Comment: Testing | 65 - 99 mg/dL | [facility] | | | | performed at [facility];[address] | | LABORATORY | | | | [address];[place] | | | | | | [address] | | | | + + + + + + + + | Specimen | + + | Blood | + + + + + + + | Performing | Address | City/State/Zipcode | Phone Number | | Organization | | | | + + + + + | [facility] | [address] | [place] [address] | [phone] | + + + + + POC Glucose (10/14/2018 2:57 PM PDT) + + + + + + | Component | Value | Ref Range | Performed | Pathologist | | | | | At | Signature | + + + + + + | Glucose, | >400 (H)Comment: Testing | 65 - 99 mg/dL | [facility] | | | POC | performed at [facility];[address] | | LABORATORY | | | | [address];[place] | | | | | | [address] | | | | + + + + + + + + | Specimen | + + | | + + + + + + + | Performing | Address | City/State/Zipcode | Phone Number | | Organization | | | | + + + + + | [facility] | [address] | [place] [address] | [phone] | + + + + + POC Glucose (10/14/2018 2:35 PM PDT) + + + + + + | Component | Value | Ref Range | Performed | Pathologist | | | | | At | Signature | + + + + + + | Glucose, | 359 (H)Comment: Testing | 65 - 99 mg/dL | [facility] | | | POC | performed at [facility];[address] | | LABORATORY | | | | [address];[place] | | | | | | [address] | | | | + + + + + + + + | Specimen | + + | | + + + + + + + | Performing | Address | City/State/Zipcode | Phone Number | | Organization | | | | + + + + + | [facility] | [address] | [place] [address] | [phone] | + + + + + Glucose, Random (10/14/2018 11:15 AM PDT) + + + + + + | Component | Value | Ref Range | Performed | Pathologist | | | | | At | Signature | + + + + + + | Glucose | 444 (H)Comment: Testing | 65 - 99 mg/dL | [facility] | | | | performed at [facility];[address] | | LABORATORY | | | | [address];[place] | | | | | | [address] | | | | + + + + + + + + | Specimen | + + | Blood | + + + + + + + | Performing | Address | City/State/Zipcode | Phone Number | | Organization | | | | + + + + + | [facility] | [address] | [place] [address] | [phone] | + + + + + POC Glucose (10/14/2018 10:56 AM PDT) + + + + + + | Component | Value | Ref Range | Performed | Pathologist | | | | | At | Signature | + + + + + + | Glucose, | >400 (H)Comment: Testing | 65 - 99 mg/dL | [facility] | | | POC | performed at [facility];[address] | | LABORATORY | | | | [address] [facility];[place], [place] | | | | | | [address] | | | | + + + + + + + + | Specimen | + + | | + + + + + + + | Performing | Address | City/State/Zipcode | Phone Number | | Organization | | | | + + + + + | [facility] | [address] | [place] [address] | [phone] | + + + + + POC Glucose (10/14/2018 7:57 AM PDT) + + + + + + | Component | Value | Ref Range | Performed | Pathologist | | | | | At | Signature | + + + + + + | Glucose, | >400 (H)Comment: Testing | 65 - 99 mg/dL | [facility] | | | POC | performed at [facility];[address] | | LABORATORY | | | | [address];[place] | | | | | | [address] | | | | + + + + + + + + | Specimen | + + | | + + + + + + + | Performing | Address | City/State/Zipcode | Phone Number | | Organization | | | | + + + + + | [facility] | [address] | [place] [address] | [phone] | + + + + + Glucose, Random (10/14/2018 5:01 AM PDT) + + + + + + | Component | Value | Ref Range | Performed | Pathologist | | | | | At | Signature | + + + + + + | Glucose | 474 (H)Comment: Testing | 65 - 99 mg/dL | [facility] | | | | performed at [facility];[address] | | LABORATORY | | | | [address];[place] | | | | | | [address] | | | | + + + + + + + + | Specimen | + + | Blood | + + + + + + + | Performing | Address | City/State/Zipcode | Phone Number | | Organization | | | | + + + + + | [facility] | [address] | [place] [address] | [phone] | + + + + + POC Glucose (10/14/2018 4:23 AM PDT) + + + + + + | Component | Value | Ref Range | Performed | Pathologist | | | | | At | Signature | + + + + + + | Glucose, | >400 (H)Comment: Testing | 65 - 99 mg/dL | [facility] | | | POC | performed at [facility];[address] | | LABORATORY | | | | [address];[place] | | | | | | [address] | | | | + + + + + + + + | Specimen | + + | | + + + + + + + | Performing | Address | City/State/Zipcode | Phone Number | | Organization | | | | + + + + + | [facility] | [address] | [place] [address] | [phone] | + + + + + Hemoglobin A1C (10/14/2018 3:01 AM PDT) + + + + + + | Component | Value | Ref Range | Performed | Pathologist | | | | | At | Signature | + + + + + + | Hemoglobin | 11.0 (H)Comment: HbA1c | 4.0 - 6.0 % | [facility] | | | A1c | method is [...] + + + + | Estimated | 269 (H)Comment: | <154 mg/dL | [facility] | | | Average | Estimated Average | | LABORATORY | | | Glucose | Glucose calculated from | | | | | | hemoglobin A1c by use of | | | | | | the ADArecommended | | | | | | formula.Testing | | | | | | performed at [facility], [address] | | | | | | [facility], | | | | | | [place] [address] | | | | + + + + + + + + | Specimen | + + | Blood | + + + + + + + | Performing | Address | City/State/Zipcode | Phone Number | | Organization | | | | + + + + + | [facility] | [address] | [place] [address] | [phone] | + + + + + Troponin I (10/14/2018 3:01 AM PDT) + + + + + + | Component | Value | Ref Range | Performed | Pathologist | | | | | At | Signature | + + + + + + | Troponin I | 0.01Comment: 0.04 | 0.00 - 0.04 | [facility] [...] | | [facility];[address] [facility] | | | | | | [facility];[place] [address] | | | | + + + + + + + + | Specimen | + + | Blood | + + + + + + + | Performing | Address | City/State/Zipcode | Phone Number | | Organization | | | | + + + + + | [facility] | [address] | [place] [address] | [phone] | + + + + + POC Glucose (10/13/2018 8:58 PM PDT) + + + + + + | Component | Value | Ref Range | Performed | Pathologist | | | | | At | Signature | + + + + + + | Glucose, | 384 (H)Comment: Testing | 65 - 99 mg/dL | [facility] | | | POC | performed at [facility];[address] | | LABORATORY | | | | [address];[place] | | | | | | [address] | | | | + + + + + + + + | Specimen | + + | | + + + + + + + | Performing | Address | City/State/Zipcode | Phone Number | | Organization | | | | + + + + + | [facility] | [address] | [place] [address] | [phone] | + + + + + Troponin I (10/13/2018 8:42 PM PDT) + + + + + + | Component | Value | Ref Range | Performed | Pathologist | | | | | At | Signature | + + + + + + | Troponin I | 0.012Comment: 0.04 | 0.00 - 0.04 | [facility] [...] | | | [facility];[address] [facility] | | | | | | [facility];[place] [address] | | | | + + + + + + + + | Specimen | + + | Blood | + + + + + + + | Performing | Address | City/State/Zipcode | Phone Number | | Organization | | | | + + + + + | [facility] | [address] | [place] [address] | [phone] | + + + + + POC Glucose (10/13/2018 4:30 PM PDT) + + + + + + | Component | Value | Ref Range | Performed | Pathologist | | | | | At | Signature | + + + + + + | Glucose, | 398 (H)Comment: Testing | 65 - 99 mg/dL | [facility] | | | POC | performed at [facility];[address] | | LABORATORY | | | | [address];[place], [place] | | | | | | [address] | | | | + + + + + + + + | Specimen | + + | | + + + + + + + | Performing | Address | City/State/Zipcode | Phone Number | | Organization | | | | + + + + + | [facility] | [address] | [place] [address] | [phone] | + + + + + XR Chest 1 Vw (10/13/2018 4:13 PM PDT) + + | Specimen | + + | | + + + + + | Narrative | Performed At | + + + | CHEST ONE VIEW CLINICAL INFORMATION: Chest pain. | [facility] | | COMPARISON: XR CHEST PA AND LATERAL (10/11/2018); XR CHEST PA AND | | | LATERAL (10/10/2018); CTA CHEST PULMONARY EMBOLISM W CONTRAST | | | (09/21/2018); FINDINGS: Monitoring leads are present. Heart size | | | is normal. There is slight blunting of the left costophrenic angle | | | and minimal atelectasis is noted at the left lung base. Osseous | | | structures are unremarkable. IMPRESSION: Minimal left | | | costophrenic angle blunting and atelectasis left lung base. | | | Signed by: Irina Oseguera, Annalisa Sign Date/Time: 10/13/2018 4:28 PM | | | | | + + + + + | Procedure Note | + + | Richard, Rad Results In - 10/13/2018 4:31 PM PDT | | CHEST ONE VIEW | | | | CLINICAL INFORMATION: | | Chest pain. | | | | COMPARISON: | | XR CHEST PA AND LATERAL (10/11/2018); XR CHEST PA AND LATERAL (10/10/2018); | | CTA CHEST PULMONARY EMBOLISM W CONTRAST (09/21/2018); | | | | FINDINGS: | | Monitoring leads are present. Heart size is normal. There is slight | | blunting of the left costophrenic angle and minimal atelectasis is | | noted at the left lung base. Osseous structures are unremarkable. | | | | IMPRESSION: | | Minimal left costophrenic angle blunting and atelectasis left lung base. | | | | | | | | Signed by: Irina Oseguera Leslie | | Sign Date/Time: 10/13/2018 4:28 PM | + + + +---------+ + + | Performing | Address | City/State/Zipcode | Phone Number | | Organization | | | | + +---------+ + + | [facility] | | | | + +---------+ + + Troponin I (10/13/2018 3:17 PM PDT) + + + + + + | Component | Value | Ref Range | Performed | Pathologist | | | | | At | Signature | + + + + + + | Troponin I | 0.014Comment: 0.04 | 0.00 - 0.04 | [facility] | | | | ng/mL or [...] | | [facility];[address] [facility] | | | | | | [address];[place] [address] | | | | + + + + + + + + | Specimen | + + | | + + + + + + + | Performing | Address | City/State/Zipcode | Phone Number | | Organization | | | | + + + + + | [facility] | [address] | [place] [address] | [phone] | + + + + + ECG 12 lead (10/13/2018 2:59 PM PDT) + + + + + + | Component | Value | Ref Range | Performed | Pathologist | | | | | At | Signature | + + + + + + | VENTRICULAR | 67 | BPM | [facility] | | | RATE EKG | | | | | + + + + + + | ATRIAL RATE | 67 | BPM | [facility] | | + + + + + + | P-R | 178 | ms | [facility] | | | INTERVAL | | | | | + + + + + + | QRS | 90 | ms | [facility] | | | DURATION | | | | | + + + + + + | Q-T | 440 | ms | [facility] | | | INTERVAL | | | | | + + + + + + | Q-T | 464 | ms | [facility] | | [...] + + + | T AXIS | -72 | degrees | [facility] | | [...] inferior | | | | | | ischemiaT wave | | | | | | abnormality, consider | | | | | | anterolateral | | | | | | ischemiaProlonged | | | | | | QTAbnormal ECGWhen | | | | | | compared with ECG of | | | | | | 11-OCT-2018 | | | | | | 18:10,Premature atrial | | | | | | complexes are no longer | | | | | | PresentNon-specific | | | | | | change in ST segment in | | | | | | Anterior leadsT wave | | | | | | inversion more evident | | | | | | in Inferior leadsT wave | | | | | | inversion now evident in | | | | | | Anterolateral | | | | | | leadsConfirmed by CAITLIN | | | | | | ZULEIKA ESPAÑA ([id number]) on | | | | | | 10/13/2018 7:01:35 PM | | | | + + [...] | | | + +---------+ + + Izabella Random (10/13/2018 11:47 AM PDT) + + + + + + | Component | Value | Ref Range | Performed | Pathologist | | | | | At | Signature | + + + + + + | Glucose | 485 (H)Comment: Testing | 65 - 99 mg/dL | [facility] | | | | performed at [facility];[address] | | LABORATORY | | | | [address];[place] | | | | | | [address] | | | | + + + + + + + + | Specimen | + + | Blood | + + + + + + + | Performing | Address | City/State/Zipcode | Phone Number | | Organization | | | | + + + + + | [facility] | [address] | [place] [address] | [phone] | + + + + + POC Glucose (10/13/2018 11:38 AM PDT) + + + + + + | Component | Value | Ref Range | Performed | Pathologist | | | | | At | Signature | + + + + + + | Glucose, | >400 (H)Comment: Testing | 65 - 99 mg/dL | [facility] | | | POC | performed at [facility];[address] | | LABORATORY | | | | [address];[place], [place] | | | | | | [address] | | | | + + + + + + + + | Specimen | + + | | + + + + + + + | Performing | Address | City/State/Zipcode | Phone Number | | Organization | | | | + + + + + | [facility] | [address] | [place] [address] | [phone] | + + + + + Troponin I (10/13/2018 10:55 AM PDT) + + + + + + | Component | Value | Ref Range | Performed | Pathologist | | | | | At | Signature | + + + + + + | Troponin I | 0.011Comment: 0.04 | 0.00 - 0.04 | [facility] [...] | | [facility];[address] [facility] | | | | | | [facility];[place] [address] | | | | + + + + + + + + | Specimen | + + | Blood | + + + + + + + | Performing | Address | City/State/Zipcode | Phone Number | | Organization | | | | + + + + + | [facility] | [address] | [place] [address] | [phone] | + + + + + ECHO Complete (10/13/2018 10:48 AM PDT) + +--------+ + + + | Component | Value | Ref Range | Performed | Pathologist | | | | | At | Signature | + +--------+ + + + | LVEF-TTE | 65 | % | [facility] | | | TRANSTHORAC | | | | | | IC ECHO | | | | | + +--------+ + + + | Patient | 222 | | [facility] | | | Weight | | | | | | (lbs) | | | | | + +--------+ + + + | Patient | 71 | | [facility] | | | Height | | | | | + +--------+ + + + | Heart Rate | 68 | | [facility] | | + +--------+ + + + | Inferior | 2.39 | cm | [facility] | | | Vena Cava | | | | | | Diameter at | | | | | | Expiration | | | | | + +--------+ + + + | LVIDd | 4.53 | cm | [facility] | | + +--------+ + + + | FS | 22 | % | [facility] | | + +--------+ + + + | LA volume | 80.71 | mL | [facility] | | + +--------+ + + + | Ascending | 3.79 | cm | [facility] | | | aorta | | | | | + +--------+ + + + | AV mean | 8.75 | mmHg | [facility] | | | gradient | | | | | + +--------+ + + + | Aortic | 3.94 | cm2 | [facility] | | | Valve Area | | | | | | by | | | | | | Continuity | | | | | | VTI | | | | | + +--------+ + + + | PV peak | 3.72 | mmHg | [facility] | | | gradient | | | | | + +--------+ + + + | LVOT | 2.38 | cm | [facility] | | | diameter | | | | | + +--------+ + + + | LVOT peak | 172.24 | cm/s | [facility] | | | tracy | | | | | + +--------+ + + + | LVOT peak | 36.99 | cm | [facility] | | | VTI | | | | | + +--------+ + + + | AV peak tracy | 208.97 | cm/s | [facility] | | + +--------+ + + + | AV VTI | 41.78 | cm | [facility] | | + +--------+ + + + | AV peak | 17.47 | mmHg | [facility] | | | gradient | | | | | + +--------+ + + + | TV peak | 0.66 | mmHg | [facility] | | | gradient | | | | | + +--------+ + + + | PV mean | 2.47 | mmHg | [facility] | | | gradient | | | | | + +--------+ + + + | LA Volume | 37 | mL/m2 | [facility] | | | Index | | | | | + +--------+ + + + | AV LVOT | 11.87 | mmHg | [facility] | | | Peak | | | | | | Gradient | | | | | + +--------+ + + + | AV LVOT | 5.74 | mmHg | [facility] | | | Mean | | | | | | Gradient | | | | | + +--------+ + + + | TR Peak | 23 | mmHg | [facility] | | | Gradient | | | | | + +--------+ + + + | TR Velocity | 238.59 | cm | [facility] | | + +--------+ + + + | PI Peak | 96.4 | cm/s | [facility] | | | Velocity | | | | | + +--------+ + + + | LV | 9.88 | cm | [facility] | | | Diastolic | | | | | | Length 4C | | | | | + +--------+ + + + | RV | 2.9 | cm | [facility] | | | Diastolic | | | | | | Basal | | | | | | Diameter | | | | | + +--------+ + + + | LV | 68 | % | [facility] | | | [facility]'s | | | | | | Biplane EF | | | | | + +--------+ + + + | LV ED | 110.12 | ml | [facility] | | | Volume | | | | | | ([facility]ancas's) | | | | | + +--------+ + + + | LV ED | 50 | ml/m2 | [facility] | | | Volume | | | | | | Index | | | | | + +--------+ + + + | LV ES | 35.57 | ml | [facility] | | | Volume | | | | | + +--------+ + + + | LVOT Mean | 111.35 | cm/s | [facility] | | | Velocity | | | | | + +--------+ + + + | MV | 213.4 | msec | [facility] | | | Deceleratio | | | | | | n Time | | | | | + +--------+ + + + | MV E/A | 1.18 | | [facility] | | | Ratio | | | | | + +--------+ + + + | MV Peak | 69.94 | cm/s | [facility] | | | A-Wave | | | | | + +--------+ + + + | MV Peak | 82.45 | cm/s | [facility] | | | E-Wave | | | | | + +--------+ + + + | TV | 286.65 | msec | [facility] | | | Deceleratio | | | | | | n Time | | | | | + +--------+ + + + | TV Peak | 30.78 | cm/s | [facility] | | | A-Wave | | | | | + +--------+ + + + | TV Peak | 40.75 | cm/s | [facility] | | | E-Wave | | | | | + +--------+ + + + | PV Mean | 76.6 | cm/s | [facility] | | | Velocity | | | | | + +--------+ + + + | PV | 96.89 | cm/s | [facility] | | | Regurgitati | | | | | | on Velocity | | | | | + +--------+ + + + | AV Mean | 140.41 | cm/s | [facility] | | | Velocity | | | | | + +--------+ + + + | LA Area | 25.78 | cm2 | [facility] | | + +--------+ + + + | LA Major | 0.4178 | cm | [facility] | | + +--------+ + + + | LV ES | 16 | ml/m2 | [facility] | | | Volume | | | | | | Index | | | | | + +--------+ + + + | IVS | 1.44 | cm | [facility] | | | Diastolic | | | | | | Thickness | | | | | | MM | | | | | + +--------+ + + + | LVPW | 1.54 | cm | [facility] | | | Diastolic | | | | | | Thickness | | | | | | MM | | | | | + +--------+ + + + | IVS | 1.72 | cm | [facility] | | | Systolic | | | | | | Thickness | | | | | | MM | | | | | + +--------+ + + + | LV Systolic | 3.55 | cm | [facility] | | | Diameter | | | | | | MM | | | | | + +--------+ + + + | LVPW | 2.26 | cm | [facility] | | | Systolic | | | | | | Thickness | | | | | | MM | | | | | + +--------+ + + + | TAPSE | 2.42 | cm | [facility] | | + +--------+ + + + | RA PRESSURE | 8 | mmHg | [facility] | | + +--------+ + + + | RVSP | 31 | mmHg | [facility] | | | Estimated | | | | | + +--------+ + + + + + | Specimen | + + | | + + + + + | Narrative | Performed At | + + + | | [facility] | | Normal size left ventricle. | | | There is moderate increased left ventricular wall thickness. | | | The left ventricular ejection fraction is 65%. | | | There is normal left ventricular wall motion. | | | Normal size right ventricle. | | | Normal right ventricular systolic function. | | + + + + +---------+ + + | Performing | Address | City/State/Zipcode | Phone Number | | Organization | | | | + +---------+ + + | [facility] | | | | + +---------+ + + POC Glucose (10/13/2018 8:06 AM PDT) + + + + + + | Component | Value | Ref Range | Performed | Pathologist | | | | | At | Signature | + + + + + + | Glucose, | 386 (H)Comment: Testing | 65 - 99 mg/dL | [facility] | | | POC | performed at [facility];[address] | | LABORATORY | | | | [address];[place], [place] | | | | | | [address] | | | | + + + + + + + + | Specimen | + + | | + + + + + + + | Performing | Address | City/State/Zipcode | Phone Number | | Organization | | | | + + + + + | [facility] | [address] | [place] [address] | [phone] | + + + + + Troponin I (10/13/2018 7:14 AM PDT) + + + + + + | Component | Value | Ref Range | Performed | Pathologist | | | | | At | Signature | + + + + + + | Troponin I | 0.015Comment: 0.04 | 0.00 - 0.04 | [facility] | | | | ng/mL or [...] | | | [facility];[address] [place] [address] | | | | | | [facility];[place] [address] | | | | + + + + + + + + | Specimen | + + | Blood | + + + + + + + | Performing | Address | City/State/Zipcode | Phone Number | | Organization | | | | + + + + + | [facility] | [address] | [place] [address] | [phone] | + + + + + POC Glucose (10/13/2018 3:05 AM PDT) + + + + + + | Component | Value | Ref Range | Performed | Pathologist | | | | | At | Signature | + + + + + + | Glucose, | 352 (H)Comment: Testing | 65 - 99 mg/dL | [facility] | | | POC | performed at [facility];[address] | | LABORATORY | | | | [address];[place], [place] | | | | | | [address] | | | | + + + + + + + + | Specimen | + + | | + + + + + + + | Performing | Address | City/State/Zipcode | Phone Number | | Organization | | | | + + + + + | [facility] | [address] | [place] [address] | [phone] | + + + + + Troponin I (10/13/2018 2:50 AM PDT) + + + + + + | Component | Value | Ref Range | Performed | Pathologist | | | | | At | Signature | + + + + + + | Troponin I | 0.016Comment: 0.04 | 0.00 - 0.04 | [facility] | | | | ng/mL or [...] | | | [facility];[address] [facility] | | | | | | [facility];[place] [address] | | | | + + + + + + + + | Specimen | + + | Blood | + + + + + + + | Performing | Address | City/State/Zipcode | Phone Number | | Organization | | | | + + + + + | [facility] | [address] | [place] [address] | [phone] | + + + + + Troponin I (10/12/2018 10:49 PM PDT) + + + + + + | Component | Value | Ref Range | Performed | Pathologist | | | | | At | Signature | + + + + + + | Troponin I | 0.016Comment: 0.04 | 0.00 - 0.04 | [facility] [...] | | | [facility];[address] [place] [address] | | | | | | [facility];[place] [address] | | | | + + + + + + + + | Specimen | + + | Blood | + + + + + + + | Performing | Address | City/State/Zipcode | Phone Number | | Organization | | | | + + + + + | [facility] | [address] | [place] [address] | [phone] | + + + + + Glucose, Random (10/12/2018 9:16 PM PDT) + + + + + + | Component | Value | Ref Range | Performed | Pathologist | | | | | At | Signature | + + + + + + | Glucose | 492 (H)Comment: Testing | 65 - 99 mg/dL | [facility] | | | | performed at [facility];[address] | | LABORATORY | | | | [address];[place] | | | | | | [address] | | | | + + + + + + + + | Specimen | + + | Blood | + + + + + + + | Performing | Address | City/State/Zipcode | Phone Number | | Organization | | | | + + + + + | [facility] | [address] | [place] [address] | [phone] | + + + + + POC Glucose (10/12/2018 9:12 PM PDT) + + + + + + | Component | Value | Ref Range | Performed | Pathologist | | | | | At | Signature | + + + + + + | Glucose, | >400 (H)Comment: Testing | 65 - 99 mg/dL | [facility] | | | POC | performed at [facility];[address] | | LABORATORY | | | | [address];[place] | | | | | | [address] | | | | + + + + + + + + | Specimen | + + | | + + + + + + + | Performing | Address | City/State/Zipcode | Phone Number | | Organization | | | | + + + + + | [facility] | [address] | [place] [address] | [phone] | + + + + + Troponin I (10/12/2018 7:01 PM PDT) + + + + + + | Component | Value | Ref Range | Performed | Pathologist | | | | | At | Signature | + + + + + + | Troponin I | 0.018Comment: 0.04 | 0.00 - 0.04 | [facility] | | | | ng/mL or [...] | | [facility];[address] [facility] | | | | | | [address];[place] [address] | | | | + + + + + + + + | Specimen | + + | Blood | + + + + + + + | Performing | Address | City/State/Zipcode | Phone Number | | Organization | | | | + + + + + | [facility] | [address] | [place] [address] | [phone] | + + + + + POC Glucose (10/12/2018 5:47 PM PDT) + + + + + + | Component | Value | Ref Range | Performed | Pathologist | | | | | At | Signature | + + + + + + | Glucose, | 368 (H)Comment: Testing | 65 - 99 mg/dL | [facility] | | | POC | performed at [facility];[address] | | LABORATORY | | | | [address];[place], [place] | | | | | | [address] | | | | + + + + + + + + | Specimen | + + | | + + + + + + + | Performing | Address | City/State/Zipcode | Phone Number | | Organization | | | | + + + + + | [facility] | [address] | [place] [address] | [phone] | + + + + + Troponin I (10/12/2018 2:55 PM PDT) + + + + + + | Component | Value | Ref Range | Performed | Pathologist | | | | | At | Signature | + + + + + + | Troponin I | 0.017Comment: 0.04 | 0.00 - 0.04 | [facility] | | | | ng/mL or [...] | | [facility];[address] [facility] | | | | | | Blvd;[place] [address] | | | | + + + + + + + + | Specimen | + + | Blood | + + + + + + + | Performing | Address | City/State/Zipcode | Phone Number | | Organization | | | | + + + + + | [facility] | [address] | [place] [address] | [phone] | + + + + + POC Glucose (10/12/2018 2:10 PM PDT) + + + + + + | Component | Value | Ref Range | Performed | Pathologist | | | | | At | Signature | + + + + + + | Glucose, | 370 (H)Comment: Testing | 65 - 99 mg/dL | [facility] | | | POC | performed at [facility];[address] | | LABORATORY | | | | [address];[place], [place] | | | | | | [address] | | | | + + + + + + + + | Specimen | + + | | + + + + + + + | Performing | Address | City/State/Zipcode | Phone Number | | Organization | | | | + + + + + | [facility] | [address] | [place] [address] | [phone] | + + + + + VAS Carotid Duplex Bilateral (10/12/2018 2:00 PM PDT) + + | Specimen | + + | | + + + + + | Narrative | Performed At | + + + | CAROTID DUPLEX ULTRASOUND CLINICAL INFORMATION: Syncope. | [facility] | | COMPARISON: US CAROTID DOPPLER BILATERAL (05/30/2014); US CAROTID | | | DOPPLER BILATERAL (12/02/2013); US CAROTID DOPPLER BILATERAL | | | (07/08/2013); PROCEDURE: Evaluation of the extracranial carotid and | | | vertebral arteries with production of real-time images integrating | | | B-mode two-dimensional vascular structure, Doppler spectral analysis | | | and color-flow Doppler imaging. FINDINGS: Peak systolic and | | | diastolic velocities measured in the common and internal carotid | | | arteries. All velocities recorded in cm/sec: Anterior Circulation: | | | Right CCA: 60/0 ICA: 89/0 ECA: 229/6 ICA/CCA: 0.7 Left | | | CCA: 85/6 ICA: 142 /12 ECA: 232/0 ICA/CCA: 1.7 Posterior | | | Circulation: Right: Vertebral: 47/0 Antegrade Left: | | | Vertebral: 55/4 Antegrade Morrissey scale images: Right: Mild | | | calcified plaque is seen of the carotid bulb extending into the | | | proximal internal carotid artery. Left: Moderate calcified plaque | | | is demonstrated of the carotid bulb. Calcification is noted extending | | | into the proximal internal carotid artery. Elevation in velocity | | | of the proximal and distal left subclavian artery is noted. | | | IMPRESSION: Right: Negative for hemodynamically significant | | | stenosis. (Less than 50% ICA stenosis. Primary parameters: Peak | | | systolic ICA velocity < 125 cm/sec with carotid plaque or intimal | | | thickening present. Secondary criteria: ICA/CCA ratio of <2 and ICA | | | EDV < 40 cm/sec.) Left: Negative for hemodynamically significant | | | stenosis. (Less than 50% ICA stenosis. Primary parameters: Peak | | | systolic ICA velocity < 125 cm/sec with carotid plaque or intimal | | | thickening present. Secondary criteria: ICA/CCA ratio of <2 and ICA | | | EDV < 40 cm/sec.) Elevation in velocity of the left common | | | carotid and subclavian artery that could reflect artifact from | | | tortuosity versus inflow stenosis. Criteria based on society of | | | radiologists in ultrasound consensus criteria. Radiology. 2002 | | | Nov;229(2):340-6. 2002Oct 24. Signed by: Irina Ji, | | | Kishan Sign Date/Time: 10/12/2018 2:47 PM | | + + + + + | Procedure Note | + + | Richard, Rad Results In - 10/12/2018 2:51 PM PDT | | CAROTID DUPLEX ULTRASOUND | | | | CLINICAL INFORMATION: | | Syncope. | | | | COMPARISON: | | US CAROTID DOPPLER BILATERAL (05/30/2014); US CAROTID DOPPLER BILATERAL | | (12/02/2013); US CAROTID DOPPLER BILATERAL (07/08/2013); | | | | PROCEDURE: | | [...] | | | Right | | CCA: 60/0 | | ICA: 89/0 | | ECA: 229/6 | | ICA/CCA: 0.7 | | | | Left | | CCA: 85/6 | | ICA: 142 /12 | | ECA: 232/0 | | ICA/CCA: 1.7 | | | | Posterior Circulation: | | | | Right: | | Vertebral: 47/0 Antegrade | | | | Left: | | Vertebral: 55/4 Antegrade | | | | Morrissey scale images: | | | | Right: Mild calcified plaque is seen of the carotid bulb extending into | | the proximal internal carotid artery. | | | | Left: Moderate calcified plaque is demonstrated of the carotid bulb. | | Calcification is noted extending into the proximal internal carotid | | artery. Elevation in velocity of the proximal and distal left | | subclavian artery is noted. | | | | IMPRESSION: [...] < 40 cm/sec.) | | | | Elevation in velocity of the left common carotid and subclavian artery | | that could reflect artifact from tortuosity versus inflow stenosis. | | | | Criteria based on society of radiologists in ultrasound consensus | | criteria. Radiology. 2002;229(2):340-6. 2002Oct 24. | | | | | | | | Signed by: Irina Ji Richard | | Sign Date/Time: 10/12/2018 2:47 PM | + + + +---------+ + + | Performing | Address | City/State/Zipcode | Phone Number | | Organization | | | | + +---------+ + + | [facility] | | | | + +---------+ + + Glucose, Random (10/12/2018 12:42 PM PDT) + + + + + + | Component | Value | Ref Range | Performed | Pathologist | | | | | At | Signature | + + + + + + | Glucose | 454 (H)Comment: Testing | 65 - 99 mg/dL | [facility] | | | | performed at [facility];[address] | | LABORATORY | | | | [address];[place] | | | | | | [address] | | | | + + + + + + + + | Specimen | + + | Blood | + + + + + + + | Performing | Address | City/State/Zipcode | Phone Number | | Organization | | | | + + + + + | [facility] | [address] | [place] [address] | [phone] | + + + + + POC Glucose (10/12/2018 12:37 PM PDT) + + + + + + | Component | Value | Ref Range | Performed | Pathologist | | | | | At | Signature | + + + + + + | Glucose, | >400 (H)Comment: Testing | 65 - 99 mg/dL | [facility] | | | POC | performed at [facility];[address] | | LABORATORY | | | | [address];[place], [place] | | | | | | [address] | | | | + + + + + + + + | Specimen | + + | | + + + + + + + | Performing | Address | City/State/Zipcode | Phone Number | | Organization | | | | + + + + + | [facility] | [address] | [place] [address] | [phone] | + + + + + Troponin I (10/12/2018 11:04 AM PDT) + + + + + + | Component | Value | Ref Range | Performed | Pathologist | | | | | At | Signature | + + + + + + | Troponin I | 0.027Comment: 0.04 | 0.00 - 0.04 | [facility] [...] | | | [facility];[address] [place] [address] | | | | | | [facility];[place] [address] | | | | + + + + + + + + | Specimen | + + | Blood | + + + + + + + | Performing | Address | City/State/Zipcode | Phone Number | | Organization | | | | + + + + + | [facility] | [address] | [place] [address] | [phone] | + + + + + POC Glucose (10/12/2018 8:23 AM PDT) + + + + + + | Component | Value | Ref Range | Performed | Pathologist | | | | | At | Signature | + + + + + + | Glucose, | 337 (H)Comment: Testing | 65 - 99 mg/dL | [facility] | | | POC | performed at [facility];[address] | | LABORATORY | | | | [address];[place] | | | | | | [address] | | | | + + + + + + + + | Specimen | + + | | + + + + + + + | Performing | Address | City/State/Zipcode | Phone Number | | Organization | | | | + + + + + | [facility] | [address] | [place] [address] | [phone] | + + + + + POCT Glucose (10/12/2018 8:23 AM PDT) + +---------+ + + + | Component | Value | Ref Range | Performed | Pathologist | | | | | At | Signature | + +---------+ + + + | Glucose, WB | 337 (A) | 65 - 99 mg/dL | | | + +---------+ + + + + + | Specimen | + + | Blood | + + Troponin I (10/12/2018 7:03 AM PDT) + + + + + + | Component | Value | Ref Range | Performed | Pathologist | | | | | At | Signature | + + + + + + | Troponin I | 0.023Comment: 0.04 | 0.00 - 0.04 | [facility] | | | | ng/mL or [...] | | | [facility];[address] [place] [address] | | | | | | [address]vd;[place] [address] | | | | + + + + + + + + | Specimen | + + | Blood | + + + + + + + | Performing | Address | City/State/Zipcode | Phone Number | | Organization | | | | + + + + + | [facility] | [address] | [place] [address] | [phone] | + + + + + Troponin I (10/12/2018 3:27 AM PDT) + + + + + + | Component | Value | Ref Range | Performed | Pathologist | | | | | At | Signature | + + + + + + | Troponin I | 0.034Comment: 0.04 | 0.00 - 0.04 | [facility] | | | | ng/mL or [...] | | [facility];[address] [facility] | | | | | | [address];[place] [address] | | | | + + + + + + + + | Specimen | + + | Blood | + + + + + + + | Performing | Address | City/State/Zipcode | Phone Number | | Organization | | | | + + + + + | [facility] | [address] | [place] [address] | [phone] | + + + + + Comprehensive Metabolic Panel (10/12/2018 3:27 AM PDT) + + + + + [...] + + + | K | 4.0Comment: SPECIMEN | 3.5 - 4.9 | [facility] | | | | SLIGHTLY HEMOLYZED | mmol/L | LABORATORY | | + [...] + + + + | Glucose | 323 (H)Comment: SPECIMEN | 65 - 99 mg/dL | [facility] | | | | SLIGHTLY HEMOLYZED | | LABORATORY | | + + + + + + | BUN | 25 | 8 - 25 mg/dL | [facility] | | | | | | LABORATORY | | + + + + + + | Creatinine | 1.1Comment: SPECIMEN | 0.70 - 1.30 | [facility] | | | | SLIGHTLY HEMOLYZED | mg/dL | LABORATORY | | + + + + + + | BUN/Creatin | 23 | | [facility] | | | ine Ratio | | | LABORATORY | | + + + + + + | Calcium | 9.0 | 8.5 - 10.5 | [facility] | | | | | mg/dL | LABORATORY | | + + + + + + | Protein, | 6.9 | 6.3 - 8.2 g/dL | [facility] | | | Total | | | LABORATORY | | + + + + + + | Albumin | 2.9 (L) | 3.3 - 4.8 g/dL | [facility] | | | | | | LABORATORY | | + + + + + + | Globulin | 4.0 | 1.3 - 4.9 g/dL | [facility] | | | | | | LABORATORY | | + + + + + + | A/G Ratio | 0.7 (L) | 1.0 - 2.4 | [facility] | | | | | | LABORATORY | | + + + + + + | BILIRUBIN, | 0.5Comment: SPECIMEN | 0.1 - 1.5 mg/dL | [facility] | | | TOTAL | SLIGHTLY HEMOLYZED | | LABORATORY | | + + + + + + | ALK PHOS | 125 (H) | 35 - 115 U/L | [facility] | | | | | | LABORATORY | | + + + + + + | AST | 22Comment: SPECIMEN | 10 - 45 U/L | [facility] | | | | SLIGHTLY HEMOLYZED | | LABORATORY | | + + + + + + | ALT | 25Comment: SPECIMEN | 10 - 65 U/L | [facility] | | | | SLIGHTLY HEMOLYZED | | LABORATORY | | + + + + + + | Estimated | >60Comment: GFR <60: | >60 | [facility] | | | GFR | CHRONIC [...] | | | | | performed at [facility], [address] | | | | | | [facility], | | | | | | [place] [address] | | | | + + + + + + + + | Specimen | + + | Blood | + + + + + + + | Performing | Address | City/State/Zipcode | Phone Number | | Organization | | | | + + + + + | [facility] | [address] | [place] [address] | [phone] | + + + + + CBC no Differential (10/12/2018 3:27 AM PDT) + + + + + + | Component | Value | Ref Range | Performed | Pathologist | | | | | At | Signature | + + + + + + | WBC | 10.16 | 3.80 - 11.00 | [facility] | [...] + + + + | Hematocrit | 42.3 | 39.0 - 50.0 % | [facility] | | | | | | LABORATORY | | + + + + + + | MCV | 84.3 | 80.0 - 100.0 fl | [facility] | | | | | | LABORATORY | | + + + + + + | MCH | 29.3 | 27.0 - 34.0 pg | [facility] | | | | | | LABORATORY | | + + + + + + | MCHC | 34.7 | 32.0 - 35.5 | [facility] | | | | | g/dL | LABORATORY | | + + + + + + | RDW-SD | 41.6 | 37 - 53 fl | [facility] | | | | | | LABORATORY | | + + + + + + | Platelet | 210 | 150 - 400 K/uL | [facility] | | | Count | | | LABORATORY | | + + + + + + | MPV | 8.2Comment: Testing | fl | [facility] | | | | performed at [facility], [address] | | LABORATORY | | | | [address], | | | | | | [place] [address] | | | | + + + + + + + + | Specimen | + + | Blood | + + + + + + + | Performing | Address | City/State/Zipcode | Phone Number | | Organization | | | | + + + + + | [facility] | [address] | [place] [address] | [phone] | + + + + + Lipid Panel (10/12/2018 3:27 AM PDT) + + + + + + | Component | Value | Ref Range | Performed | Pathologist | | | | | At | Signature | + + + + + + | Cholesterol | 166Comment: SPECIMEN | <200 mg/dL | [facility] | | | | SLIGHTLY HEMOLYZED | | LABORATORY | | + + + + + + | Triglycerid | 498 (H)Comment: SPECIMEN | <150 mg/dL | [facility] | | | es | SLIGHTLY HEMOLYZED | | LABORATORY | | + + + + + + | HDL | 26 (L) | >40 mg/dL | [facility] | | | | | | LABORATORY | | + + + + + + | LDL, | LDL NOT VALID WHEN TRIG | <100 mg/dL | [facility] | | | Calculated | >400 mg/dLComment: | | LABORATORY | | | | Testing performed at | | | | | | [facility], [address] [facility] | | | | | | [place] | | | | | | [address] | | | | + + + + + + + + | Specimen | + + | Blood | + + + + + + + | Performing | Address | City/State/Zipcode | Phone Number | | Organization | | | | + + + + + | [facility] | [address] | [place] [address] | [phone] | + + + + + CT Head wo Contrast (10/12/2018 12:48 AM PDT) + + | Specimen | + + | | + + + + + | Narrative | Performed At | + + + | CT HEAD WITHOUT CONTRAST CLINICAL INFORMATION: Evaluation | [facility] | | after an abnormal EKG. Fall earlier today. Syncopal episode. | | | COMPARISON: CT HEAD WO CONTRAST (10/10/2018); CT HEAD WO CONTRAST | | | (05/12/2018); CT HEAD WO CONTRAST (06/25/2016); PROCEDURE: Axial | | | images were obtained through the head without IV contrast. | | | Multiplanar reformations were obtained from the acquisition data. | | | At least one of the following CT dose optimization techniques were | | | used: Automated exposure control; Adjustment of mA and/or kV according | | | to patient size; Use of iterative reconstruction technique. | | | FINDINGS: Brain: No intracranial hemorrhage, midline shift or | | | pathologic mass effect. No cerebral edema, mass lesion, or evidence | | | of acute infarct. Ventricles and extra-axial fluid spaces: Normal. | | | Paranasal sinuses and mastoid air cells: Near total opacity of | | | the frontal sinuses. Moderate ethmoid air cell mucosal thickening. | | | Remaining paranasal sinuses and mastoid air cells are clear. | | | Calvarium and extracranial soft tissues: Normal. Orbits: Imaged | | | portions of the orbits are normal. Moderate debris/cerumen within | | | the bilateral external auditory canals. IMPRESSION: No acute | | | intracranial findings. No intracranial hemorrhage, mass effect or | | | edema. Signed by: Irina Atkinson, Rhys Pina Date/Time: | | | 10/12/2018 1:04 AM | | + + + + + | Procedure Note | + + | Richard, Rad Results In - 10/12/2018 1:08 AM PDT | | CT HEAD WITHOUT CONTRAST | | | | CLINICAL INFORMATION: | | Evaluation after an abnormal EKG. Fall earlier today. Syncopal | | episode. | | | | COMPARISON: | | CT HEAD WO CONTRAST (10/10/2018); CT HEAD WO CONTRAST (05/12/2018); CT HEAD | | WO CONTRAST (06/25/2016); | | | | PROCEDURE: | | [...] | Paranasal sinuses and mastoid air cells: Near total opacity of the | | frontal sinuses. Moderate ethmoid air cell mucosal thickening. | | Remaining paranasal sinuses and mastoid air cells are clear. | | | | Calvarium and extracranial soft tissues: Normal. | | | | Orbits: Imaged portions of the orbits are normal. | | | | Moderate debris/cerumen within the bilateral external auditory canals. | | | | IMPRESSION: | | No acute intracranial findings. No intracranial hemorrhage, mass effect | | or edema. | | | | | | | | Signed by: Irina Atkinson Zachary | | Sign Date/Time: 10/12/2018 1:04 AM | + + + +---------+ + + | Performing | Address | City/State/Zipcode | Phone Number | | Organization | | | | + +---------+ + + | [facility] | | | | + +---------+ + + Troponin I (10/12/2018 12:00 AM PDT) + + + + + + | Component | Value | Ref Range | Performed | Pathologist | | | | | At | Signature | + + + + + + | Troponin I | 0.039Comment: 0.04 | 0.00 - 0.04 | [facility] | | | | ng/mL or [...] | | [facility];[address];[place] [address] | | | | + + + + + + + + | Specimen | + + | Blood | + + + + + + + | Performing | Address | City/State/Zipcode | Phone Number | | Organization | | | | + + + + + | [facility] | [address] | [place] [address] | [phone] | + + + + + XR Chest PA and Lateral (10/11/2018 10:03 PM PDT) + + | Specimen | + + | | + + + + + | Narrative | Performed At | + + + | CHEST PA AND LATERAL CLINICAL INFORMATION: Abnormal EKG. | [facility] | | COMPARISON: XR CHEST PA AND LATERAL (10/10/2018); CTA CHEST PULMONARY | | | EMBOLISM W CONTRAST (09/21/2018); XR CHEST 2 VIEW FRONTAL AND LATERAL | | | (09/21/2018); FINDINGS: Heart, lungs and vessels normal. No | | | pneumothorax, pleural effusion or adenopathy. No significant bone | | | abnormality. IMPRESSION: Negative chest. Signed by: | | | Irina Donahue Gordon Sign Date/Time: 10/11/2018 10:21 PM | | + + + + + | Procedure Note | + + | Richard, Rad Results In - 10/11/2018 10:24 PM PDT | | CHEST PA AND LATERAL | | | | CLINICAL INFORMATION: | | Abnormal EKG. | | | | COMPARISON: | | XR CHEST PA AND LATERAL (10/10/2018); CTA CHEST PULMONARY EMBOLISM W | | CONTRAST (09/21/2018); XR CHEST 2 VIEW FRONTAL AND LATERAL (09/21/2018); | | | | FINDINGS: | | Heart, lungs and vessels normal. No pneumothorax, pleural effusion or | | adenopathy. No significant bone abnormality. | | | | IMPRESSION: | | Negative chest. | | | | | | | | Signed by: Irina Donahue Gordon | | Sign Date/Time: 10/11/2018 10:21 PM | + + + +---------+ + + | Performing | Address | City/State/Zipcode | Phone Number | | Organization | | | | + +---------+ + + | [facility] | | | | + +---------+ + + Troponin I (10/11/2018 9:42 PM PDT) + + + + + + | Component | Value | Ref Range | Performed | Pathologist | | | | | At | Signature | + + + + + + | Troponin I | 0.04Comment: 0.04 | 0.00 - 0.04 | [facility] [...] | | | [facility];[address] [place] [address] | | | | | | [facility];[place] [address] | | | | + + + + + + + + | Specimen | + + | Blood | + + + + + + + | Performing | Address | City/State/Zipcode | Phone Number | | Organization | | | | + + + + + | [facility] | [address] | [place] [address] | [phone] | + + + + + Comprehensive Metabolic Panel (10/11/2018 9:42 PM PDT) + + + + + [...] + + + + | Glucose | 293 (H) | 65 - 99 mg/dL | [facility] | | | | | | LABORATORY | | + + + + + + | BUN | 20 | 8 - 25 mg/dL | [facility] | | | | | | LABORATORY | | + + + + + + | Creatinine | 1.18 | 0.70 - 1.30 | [facility] | [...] + + + | ALK PHOS | 124 (H) | 35 - 115 [...] | >60Comment: GFR <60: | >60 | [facility] | | | GFR | CHRONIC [...] [place];[address] | | | | | | [address] [facility];[place], [place] | | | | | | [address] | | | | + + + + + + + + | Specimen | + + | Blood | + + + + + + + | Performing | Address | City/State/Zipcode | Phone Number | | Organization | | | | + + + + + | [facility] | [address] | [place] [address] | [phone] | + + + + + CBC with Differential (10/11/2018 9:42 PM PDT) + + + + + + | Component | Value | Ref Range | Performed | Pathologist | | | | | At | Signature | + + + + + + | WBC | 11.78 (H) | 3.80 - 11.00 | [facility] | | | | | K/uL | LABORATORY | | + + + + + + | Red Blood | 5.18 | 4.20 - 5.70 | [facility] | | | Cells | | M/uL | LABORATORY | | + + + + + + | Hemoglobin | 14.8 | 13.2 - 17.0 | [facility] | | | | | g/dL | LABORATORY | | + + + + + + | Hematocrit | 43.1 | 39.0 - 50.0 % | [facility] [...] | 34.3 | 32.0 - 35.5 | [facility] | | | | | g/dL | LABORATORY | | + + + + + + | RDW-SD | 41.1 | 37 - 53 fl | [facility] | | | | | | LABORATORY | | + + + + + + | Platelet | 224 | 150 - 400 K/uL | [facility] [...] + + + + | % | 53.28 | % | [facility] | | | Neutrophils | | | LABORATORY | | + + + + + + | % | 30.94 | % | [facility] | | | Lymphocytes | | | LABORATORY | | + + + + + + | Monocyte % | 8.79 | % | [facility] | | | | | | LABORATORY | | + + + + + + | Eosinophils | 5.97 | % | [facility] | | | % | | | LABORATORY | | + + + + + + | Basophils % | 1.02 | % | [facility] | | | | | | LABORATORY | | + + + + + + | Neutrophils | 6.27 | 1.90 - 7.40 | [facility] | | | , Absolute | | K/uL | LABORATORY | | + + + + + + | Absolute | 3.64 | 1.00 - 3.90 | [facility] | | | Lymphocytes | | K/uL | LABORATORY | | + + + + + + | Absolute | 1.04 (H) | 0.00 - 0.80 | [facility] | | | Monocytes | | K/uL | LABORATORY | | + + + + + + | Eosinophils | 0.70 (H) | 0.00 - 0.50 | [facility] | | | , Absolute | | K/uL | LABORATORY | | + + + + + + | Basophils, | 0.12 (H)Comment: Testing | 0.00 - 0.10 | [facility] | | | Absolute | performed at [facility];[address] | K/uL | LABORATORY | | | | [address];[place] | | | | | | [address] | | | | + + + + + + + + | Specimen | + + | Blood | + + + + + + + | Performing | Address | City/State/Zipcode | Phone Number | | Organization | | | | + + + + + | [facility] | [address] | [place] [address] | [phone] | + + + + + ECG 12 lead (10/11/2018 6:10 PM PDT) + + + + [...] + + + + | Q-T | 426 | ms | [facility] | | | INTERVAL | | | | | + + + + + + | Q-T | 452 | ms | [facility] | | [...] | | | | | ECG of 10-OCT-2018 | | | | | | 17:27,No significant | | | | | | [...] | | | | | ONLY, -COMPUTER ([id number]), | | | | | | news editor Uriel Simms | | | | | | ([phone]) on 10/12/2018 | | | | | | 8:08:34 AM | | | | + + [...] + | Diagnosis | + + | Syncope, unspecified syncope type | + + | Chest pain, unspecified type | + + | Hypertension, unspecified type | + + | Chronic anticoagulation Encounter for long-term (current) use of 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 | + + | Type 2 diabetes mellitus with hyperglycemia, with long-term current use of insulin | | (HCC) | + + | Allergy history, drug Personal history of allergy to unspecified medicinal agent | + + | Type 2 diabetes mellitus with hyperglycemia (HCC) Type II or unspecified type | | diabetes mellitus without mention of complication, not stated as uncontrolled | + + | Anxiety Anxiety state, unspecified | + + documented in this encounter Administered Medications + +--------+ +--------+------+------+ | Medication Order | MAR | Action | Dose | Rate | Site | | | Action | Date | | | | + +--------+ +--------+------+------+ | acetaminophen (TYLENOL) tablet | Given | 10/14/19 | 650 mg | | | | 650 mg 650 mg, Oral, EVERY 4 | | 19 11:46 | | | | | HOURS PRN, Pain, or fever >= 38.6 | | PM PDT | | | | | C (101.5 F), Starting 10/12/18 | | | | | | | at 0310 | | | | | | + +--------+ +--------+------+------+ +-------+ +--------+---+---+ | Given | 10/14/19 | 650 mg | | | | | 19 11:37 | | | | | | AM PDT | | | | +-------+ +--------+---+---+ +---+---+ | | | +---+---+ + +-------+ +------+---+---+ | apixaban (ELIQUIS) tablet 5 mg | Given | 10/17/19 | 5 mg | | | | 5 mg, Oral, 2 TIMES DAILY, First | | 19 8:35 | | | | | dose on Mon10/12/18 at 0900 | | AM PDT | | | | + +-------+ +------+---+---+ +-------+ +------+---+---+ | Given | 10/16/19 | 5 mg | | | | | 19 8:51 | | | | | | PM PDT | | | | +-------+ +------+---+---+ | Given | 10/16/19 | 5 mg | | | | | 19 8:10 | | | | | | AM PDT | | | | +-------+ +------+---+---+ +---+---+ | | | +---+---+ + +-------+ +------+---+---+ | ARIPiprazole (ABILIFY) tablet 5 | Given | 10/17/19 | 5 mg | | | | mg 5 mg, Oral, DAILY, First | | 19 8:35 | | | | | dose on Mon10/12/18 at 0900 | | AM PDT | | | | + +-------+ +------+---+---+ +-------+ +------+---+---+ | Given | 10/16/19 | 5 mg | | | | | 19 8:09 | | | | | | AM PDT | | | | +-------+ +------+---+---+ | Given | 10/15/19 | 5 mg | | | | | 19 7:59 | | | | | | AM PDT | | | | +-------+ +------+---+---+ +---+---+ | | | +---+---+ + +-------+ +--------+---+---+ | aspirin chewable tablet 324 mg | Given | 10/12/19 | 324 mg | | | | 324 mg, Oral, ONCE, [facility] 10/11/18 | | 19 10:31 | | | | | at 2120, For 1 dose, Give if no | | PM PDT | | | | | allergy and the patient has not | | | | | | | had with in the last 24hrs, | | | | | | + +-------+ +--------+---+---+ +---+---+ | | | +---+---+ + +-------+ +-------+---+---+ | aspirin EC tablet 81 mg 81 mg, | Given | 10/17/19 | 81 mg | | | | Oral, DAILY, First dose on Mon | | 19 8:35 | | | | | 10/12/18 at 0900 | | AM PDT | | | | + +-------+ +-------+---+---+ +-------+ +-------+---+---+ | Given | 10/16/19 | 81 mg | | | | | 19 8:10 | | | | | | AM PDT | | | | +-------+ +-------+---+---+ | Given | 10/15/19 | 81 mg | | | | | 19 7:59 | | | | | | AM PDT | | | | +-------+ +-------+---+---+ +---+---+ | | | +---+---+ + +-------+ +---------+---+---+ | budesonide-formoterol | Given | 10/17/19 | 2 puffs | | | | (SYMBICORT) 160-4.5 mcg/puff | | 19 8:37 | | | | | inhaler 2 puff 2 puff, | | AM PDT | | | | | Inhalation, RT BID, First dose on | | | | | | | 10/12/18 at 0900, Shake well. | | | | | | | Use with spacer. Rinse mouth | | | | | | | after use., | | | | | | + +-------+ +---------+---+---+ +-------+ +---------+---+---+ | Given | 10/16/19 | 2 puffs | | | | | 19 8:51 | | | | | | PM PDT | | | | +-------+ +---------+---+---+ | Given | 10/16/19 | 2 puffs | | | | | 19 8:11 | | | | | | AM PDT | | | | +-------+ +---------+---+---+ + +---+ | | | + +---+ | carvedilol (COREG) tablet 12.5 | | | mg 12.5 mg, Oral, 2 TIMES DAILY | | | WITH BREAKFAST & DINNER, First | | | dose (after last modification) on | | | Tu10/16/18 at 1700, Give | | | another 6.5 mg now so he gets | | | 12.5 this am, | | + +---+ | | | + +---+ + +-------+ +---------+---+---+ | carvedilol (COREG) tablet 6.25 | Given | 10/17/19 | 6.25 mg | | | | mg 6.25 mg, Oral, 2 TIMES DAILY | | 19 8:37 | | | | | WITH BREAKFAST & DINNER, First | | AM PDT | | | | | dose on Mon10/12/18 at 0800 | | | | | | + +-------+ +---------+---+---+ +-------+ +---------+---+---+ | Given | 10/16/19 | 6.25 mg | | | | | 19 4:00 | | | | | | PM PDT | | | | +-------+ +---------+---+---+ | Given | 10/16/19 | 6.25 mg | | | | | 19 8:09 | | | | | | AM PDT | | | | +-------+ +---------+---+---+ +---+---+ | | | +---+---+ + +-------+ +------+---+---+ | dexamethasone (PF) 10 mg/mL | Given | 10/14/19 | 8 mg | | | | injection 8 mg 8 mg, | | 19 6:21 | | | | | Intravenous, EVERY 6 HOURS (4 | | AM PDT | | | | | times per day), First dose on Fri | | | | | | | 10/12/18 at 0800, When ordered IV | | | | | | | push: Dilute to 10-20 mL with NS | | | | | | | and give slowly over 1-2 | | | | | | | minutes., | | | | | | + +-------+ +------+---+---+ +-------+ +------+---+---+ | Given | 10/14/19 | 8 mg | | | | | 19 12:24 | | | | | | AM PDT | | | | +-------+ +------+---+---+ | Given | 10/13/19 | 8 mg | | | | | 19 6:56 | | | | | | PM PDT | | | | +-------+ +------+---+---+ + +---+ | | | + +---+ | dextrose 10% (D10W) infusion | | | at 50 mL/hr, Intravenous, | | | CONTINUOUS PRN, hypoglycemia, | | | Starting Mon10/12/18 at 0310, | | | Start infusion if unable [...] Blood Sugar, Starting Fri | | | 10/12/18 at 0310, For blood glucose | | | 50-69 mg/dl - give 12.5 g For | | | blood glucose less than 50 mg/dl | | | - give 25 g, | | + +---+ | | | + +---+ + +-------+ +-------+---+---+ | diphenhydrAMINE (BENADRYL) | Given | 10/13/19 | 25 mg | | | | injection 25 mg 25 mg, | | 19 7:40 | | | | | Intravenous, ONCE, 10/12/18 at | | AM PDT | | | | | 0745, For 1 dose | | | | | | + +-------+ +-------+---+---+ +---+---+ | | | +---+---+ + +-------+ +-------+---+---+ | diphenhydrAMINE (BENADRYL) | Given | 10/16/19 | 25 mg | | | | injection 25 mg 25 mg, | | 19 8:51 | | | | | Intravenous, EVERY 6 HOURS PRN, | | PM PDT | | | | | Itching, Starting 10/13/18 at | | | | | | | 2242 | | | | | | + +-------+ +-------+---+---+ +-------+ +-------+---+---+ | Given | 10/16/19 | 25 mg | | | | | 19 2:02 | | | | | | AM PDT | | | | +-------+ +-------+---+---+ | Given | 10/15/19 | 25 mg | | | | | 19 12:13 | | | | | | AM PDT | | | | +-------+ +-------+---+---+ +---+---+ | | | +---+---+ + +-------+ +-------+---+---+ | famotidine (PEPCID) injection | Given | 10/13/19 | 20 mg | | | | 20 mg 20 mg, Intravenous, | | 19 8:50 | | | | | TIMES DAILY, First dose on Mon | | PM PDT | | | | | 10/12/18 at 0800, Dilute 2 mL of | | | | | | | famotidine with 8 mL of normal | | | | | | | saline to a final concentration | | | | | | | of 2 mg/mL. Administer ordered | | | | | | | dose over a period of at least 2 | | | | | | | minutes., | | | | | | + +-------+ +-------+---+---+ +-------+ +-------+---+---+ | Given | 10/13/19 | 20 mg | | | | | 19 8:01 | | | | | | AM PDT | | | | +-------+ +-------+---+---+ +---+---+ | | | +---+---+ + +-------+ +-------+---+---+ | hydrALAZINE (APRESOLINE) | Given | 10/13/19 | 10 mg | | | | injection 10 mg 10 mg, | | 19 5:10 | | | | | Intravenous, ONCE, Mon10/12/18 at | | AM PDT | | | | | 0500, For 1 dose | | | | | | + +-------+ +-------+---+---+ +---+---+ | | | +---+---+ + +-------+ +-------+---+---+ | hydrALAZINE (APRESOLINE) tablet | Given | 10/17/19 | 10 mg | | | | 10 mg 10 mg, Oral, 2 TIMES | | 19 8:37 | | | | | DAILY, First dose on Mon10/12/18 | | AM PDT | | | | | at 0055 | | | | | | + +-------+ +-------+---+---+ +-------+ +-------+---+---+ | Given | 10/16/19 | 10 mg | | | | | 19 8:51 | | | | | | PM PDT | | | | +-------+ +-------+---+---+ | Given | 10/16/19 | 10 mg | | | | | 19 8:09 | | | | | | AM PDT | | | | +-------+ +-------+---+---+ + +---+ | | | + +---+ | hydrALAZINE (APRESOLINE) tablet | | | 25 mg 25 mg, Oral, 2 TIMES | | | DAILY, First dose (after last | | | modification) on 10/16/18 at | | | 2100 | | + +---+ | | | + +---+ + +-------+ +--------+---+---+ | HYDROmorphone (DILAUDID) | Given | 10/14/19 | 0.4 mg | | | | injection 0.4 mg 0.4 mg, | | 19 3:44 | | | | | Intravenous, EVERY 1 HOUR PRN, | | PM PDT | | | | | Pain, Starting 10/13/18 at 1448 | | | | | | + +-------+ +--------+---+---+ +---+---+ | | | +---+---+ + +-------+ + +---+ + | insulin detemir (LEVEMIR | Given | 10/14/19 | 40 Units | | Abdomen- | | FLEXTOUCH) injection (pen) 40 | | 19 8:41 | | | RLQ | | Units 40 Units, Subcutaneous, | | AM PDT | | | | | EVERY MORNING, First dose on Fri | | | | | | | 10/12/18 at 0900, For subcutaneous | | | | | | | use only. Basal (long acting) | | | | | | | insulin., If NPO: Decrease dose, | | | | | | | by: 25% | | | | | | + +-------+ + +---+ + +-------+ + +---+ + | Given | 10/13/19 | 30 Units | | Arm-Righ | | | 19 8:41 | | | t Upper | | | AM PDT | | | | +-------+ + +---+ + +---+---+ | | | +---+---+ + +-------+ + +---+ + | insulin detemir (LEVEMIR | Given | 10/17/19 | 50 Units | | Abdomen- | | FLEXTOUCH) injection (pen) 50 | | 19 8:37 | | | RLQ | | Units 50 Units, Subcutaneous, | | AM PDT | | | | | EVERY MORNING, First dose (after | | | | | | | last modification) on 10/14/18 | | | | | | | at 0900, For subcutaneous use | | | | | | | only. Basal (long acting) | | | | | | | insulin., If NPO: Decrease dose, | | | | | | | by: 25% | | | | | | + +-------+ + +---+ + +-------+ + +---+ + | Given | 10/16/19 | 50 Units | | Abdomen- | | | 19 8:11 | | | RLQ | | | AM PDT | | | | +-------+ + +---+ + | Given | 10/15/19 | 50 Units | | Arm-Left | | | 19 8:49 | | | Upper | | | AM PDT | | | | +-------+ + +---+ + +---+---+ | | | +---+---+ + +-------+ + +---+ + | insulin lispro (humaLOG) | Given | 10/15/19 | 10 Units | | Abdomen- | | injection (vial) 0-12 Units 0-12 | | 19 6:28 | | | LLQ | | Units, Subcutaneous, 4 TIMES | | AM PDT | | | | | DAILY WITH MEALS & NIGHTLY, First | | | | | | | dose on 10/13/18 at 2315, | | | | | | | [...] | | | | | | | 4880-2619 Use NIGHT DOSE for | | | | | | | doses scheduled: HS, 3AM, | | | | | | | Nighttime 2359-8715 If the BG is | | | | | | | not checked before the patient | | | | | | | starts eating, do not give | | | | | | | correction insulin. If HS insulin | | | | | | | given, check blood glucose at | | | | | | | 3AM. Only for use with U-100 | | | | | | | insulin syringe., | | | | | | + +-------+ + +---+ + +---+---+ | | | +---+---+ + +-------+ +---------+---+ + | insulin lispro (humaLOG) | Given | 10/17/19 | 6 Units | | Abdomen- | | injection (vial) 0-18 Units 0-18 | | 19 11:11 | | | LLQ | | Units, Subcutaneous, 4 TIMES | | AM PDT | | | | | DAILY WITH MEALS & NIGHTLY, First | | | | | | | dose on 10/14/18 at 1300, | | | | | | | CORRECTION SCALE: Blood Glucose | | | | | | | (BG) < 150: None | | | | | | | BG 150-200: DAY: 3 units. | | | | | | | NIGHT: 0 units BG 201-250: DAY: | | | | | | | 6 units. NIGHT: 3 units BG | | | | | | | 251-300: DAY: 9 units. NIGHT: | | | | | | | 6 units BG 301-350: DAY: 12 | | | | | | | units. NIGHT: 9 units BG | | | | | | | 351-400: DAY: 15 units. NIGHT: | | | | | | | 12 units BG > 400 : DAY: 18 | | | | | | | units. NIGHT: 15 units | | | | | | | AND CALL PROVIDER | | | | | | | Use DAY DOSE for doses | | | | | | | scheduled: AC, NPO, Daytime | | | | | | | 5337-4926 Use NIGHT DOSE for | | | | | | | doses scheduled: HS, 3AM, | | | | | | | Nighttime 1036-2737 If the BG is | | | | | | | not checked before the patient | | | | | | | starts eating, do not give | | | | | | | correction insulin. If HS insulin | | | | | | | given, check blood glucose at | | | | | | | 3AM. Only for use with U-100 | | | | | | | insulin syringe., | | | | | | + +-------+ +---------+---+ + +-------+ +---------+---+ + | Given | 10/17/19 | 3 Units | | Leg-Left | | | 19 6:36 | | | Upper | | | AM PDT | | | | +-------+ +---------+---+ + | Given | 10/16/19 | 3 Units | | Abdomen- | | | 19 8:52 | | | LLQ | | | PM PDT | | | | +-------+ +---------+---+ + +---+---+ | | | +---+---+ + +-------+ +---------+---+ + | insulin lispro (humaLOG) | Given | 10/14/19 | 4 Units | | Abdomen- | | injection (vial) 0-6 Units 0-6 | | 19 9:13 | | | LLQ | | Units, Subcutaneous, 4 TIMES | | PM PDT | | | | | DAILY WITH MEALS & NIGHTLY, First | | | | | | | dose on Mon10/12/18 at 0800, | | | | | [...] | | | | AC, NPO, Daytime [phone] Use | | | | | | | NIGHT DOSE for doses scheduled: | | | | | | | HS, 3AM, Nighttime 4370-7388 | | | | | | | [...] + +-------+ +---------+---+ + | Given | 10/14/19 | 5 Units | | Arm-Righ | | | 19 4:49 | | | t Upper | | | PM PDT | | | | +-------+ +---------+---+ + | Given | 10/14/19 | 6 Units | | Abdomen- | | | 19 12:43 | | | RLQ | | | PM PDT | | | | +-------+ +---------+---+ + +---+---+ | | | +---+---+ + +-------+ +---------+---+ + | insulin lispro (humaLOG) | Given | 10/17/19 | 5 Units | | Abdomen- | | injection (vial) 5 Units 5 | | 19 11:11 | | | LLQ | | Units, Subcutaneous, 3 TIMES | | AM PDT | | | | | DAILY WITH MEALS, First dose on | | | | | | | 10/12/18 at 1700, Only for use | | | | | | | with U-100 insulin syringe., | | | | | | + +-------+ +---------+---+ + +-------+ +---------+---+ + | Given | 10/17/19 | 5 Units | | Arm-Left | | | 19 6:36 | | | Upper | | | AM PDT | | | | +-------+ +---------+---+ + | Given | 10/16/19 | 5 Units | | Abdomen- | | | 19 5:27 | | | LLQ | | | PM PDT | | | | +-------+ +---------+---+ + +---+---+ | | | +---+---+ + +-------+ +---------+---+ + | insulin lispro (humaLOG) | Given | 10/13/19 | 5 Units | | Abdomen- | | injection (vial) 5 Units 5 | | 19 2:30 | | | RLQ | | Units, Subcutaneous, ONCE, Fri | | PM PDT | | | | | 10/12/18 at 1445, For 1 dose, Only | | | | | | | for use with U-100 insulin | | | | | | | syringe., | | | | | | + +-------+ +---------+---+ + +---+---+ | | | +---+---+ + +-------+ +---------+---+ + | insulin lispro (humaLOG) | Given | 10/13/19 | 7 Units | | Arm-Left | | injection (vial) 7 Units 7 | | 19 10:16 | | | Upper | | Units, Subcutaneous, ONCE, Fri | | PM PDT | | | | | 10/12/18 at 2230, For 1 dose, Only | | | | | | | for use with U-100 insulin | | | | | | | syringe., | | | | | | + +-------+ +---------+---+ + +---+---+ | | | +---+---+ + +-------+ +-------+---+---+ | lisinopril (PRINIVIL, ZESTRIL) | Given | 10/17/19 | 20 mg | | | | tablet 20 mg 20 mg, Oral, DAILY, | | 19 8:35 | | | | | First dose (after last reorder) | | AM PDT | | | | | on 10/12/18 at 1600 | | | | | | + +-------+ +-------+---+---+ +-------+ +-------+---+---+ | Given | 10/16/19 | 20 mg | | | | | 19 8:11 | | | | | | AM PDT | | | | +-------+ +-------+---+---+ | Given | 10/15/19 | 20 mg | | | | | 19 8:02 | | | | | | AM PDT | | | | +-------+ +-------+---+---+ +---+---+ | | | +---+---+ + +-------+ +--------+---+---+ | LORazepam (ATIVAN) tablet 0.5 | Given | 10/17/19 | 0.5 mg | | | | mg 0.5 mg, Oral, 3 TIMES DAILY | | 19 8:35 | | | | | PRN, Anxiety, Starting 10/14/18 | | AM PDT | | | | | at 0927 | | | | | | + +-------+ +--------+---+---+ +-------+ +--------+---+---+ | Given | 10/17/19 | 0.5 mg | | | | | 19 3:46 | | | | | | AM PDT | | | | +-------+ +--------+---+---+ | Given | 10/16/19 | 0.5 mg | | | | | 19 8:51 | | | | | | PM PDT | | | | +-------+ +--------+---+---+ +---+---+ | | | +---+---+ + +-------+ +------+---+---+ | morphine injection 2-6 mg 2-6 | Given | 10/14/19 | 2 mg | | | | mg, Intravenous, EVERY 2 HOURS | | 19 1:17 | | | | | PRN, Pain, Starting 10/12/18 at | | PM PDT | | | | | 0310, Slow IV push, not faster | | | | | | | than 2 mg/minute. If ineffective | | | | | | | or not tolerated, use | | | | | | | hydromorphone IV if ordered., | | | | | | + +-------+ +------+---+---+ +-------+ +------+---+---+ | Given | 10/13/19 | 2 mg | | | | | 19 6:26 | | | | | | AM PDT | | | | +-------+ +------+---+---+ | Given | 10/13/19 | 2 mg | | | | | 19 3:39 | | | | | | AM PDT | | | | +-------+ +------+---+---+ +---+---+ | | | +---+---+ + + + +---------+ +---+ | niCARdipine in saline (CARDENE) | Rate/Dos | 10/13/19 | 5 mg/hr | 25 mL/hr | | | 0.2 mg/mL infusion 5-15 mg/hr | e | 19 7:26 | | | | | (25-75 mL/hr), at 25-75 mL/hr, | Change-D | PM PDT | | | | | Intravenous, TITRATED, Starting | ual Sign | | | | | | 10/12/18 at 0745, Protect from | | | | | | | light., Titration Instruction: | | | | | | | See below, Goal: Other, Other | | | | | | | goal: SBP less than 180, Initial | | | | | | | dose: 5 mg/hr, Increase rate by: | | | | | | | 2.5 mg/hr every 5 minutes., | | | | | | | Decrease rate by: 2.5 mg/hr every | | | | | | | 5 minutes., *: Titrate drug per | | | | | | | order as tolerated. Titration may | | | | | | | vary based on the patient | | | | | | | | | | | | | | s critical condition. | | | | | | + + + +---------+ +---+ + + +---------+ +---+ | Restarted | 10/13/19 | 5 mg/hr | 25 mL/hr | | | | 19 5:59 | | | | | | PM PDT | | | | + + +---------+ +---+ | Rate/Dose Change | 10/13/19 | 2.5 | 12.5 | | | | 19 3:45 | mg/hr | mL/hr | | | | PM PDT | | | | + + +---------+ +---+ +---+---+ | | | +---+---+ + +-------+ +-------+---+---+ | NIFEdipine (PROCARDIA XL) ER | Given | 10/17/19 | 60 mg | | | | tablet 60 mg 60 mg, Oral, DAILY, | | 19 8:35 | | | | | First dose (after last reorder) | | AM PDT | | | | | on Mon10/12/18 at 1600, Do not cut | | | | | | | or crush., | | | | | | + +-------+ +-------+---+---+ +-------+ +-------+---+---+ | Given | 10/16/19 | 60 mg | | | | | 19 8:10 | | | | | | AM PDT | | | | +-------+ +-------+---+---+ | Given | 10/15/19 | 60 mg | | | | | 19 7:59 | | | | | | AM PDT | | | | +-------+ +-------+---+---+ +---+---+ | | | +---+---+ + +-------+ +--------+---+---+ | nitroglycerin (NITRO-BID) 2% | Given | 10/13/19 | 1 inch | | | | ointment 1 inch 1 inch, Topical, | | 19 1:40 | | | | | ONCE, [facility] 10/12/18 at 0140, For 1 | | AM PDT | | | | | dose | | | | | | + +-------+ +--------+---+---+ +---+---+ | | | +---+---+ + +-------+ +--------+---+---+ | nitroglycerin (NITROSTAT) SL | Given | 10/12/19 | 0.4 mg | | | | tablet 0.4 mg 0.4 mg, | | 19 11:25 | | | | | Sublingual, ONCE, [facility] 10/11/18 at | | PM PDT | | | | | 2325, For 1 dose, Maximum of 3 | | | | | | | doses in 15 minutes., | | | | | | + +-------+ +--------+---+---+ +---+---+ | | | +---+---+ + + + +---------+-------+---+ | nitroglycerin in dextrose 200 | Rate/Dos | 10/13/19 | 15 | 4.5 | | | mcg/mL infusion 0-200 mcg/min | e Change | 19 7:16 | mcg/min | mL/hr | | | (0-60 mL/hr), at 0-60 mL/hr, | | AM PDT | | | | | Intravenous, TITRATED, Starting | | | | | | | 10/12/18 at 0645, Titration | | | | | | | Instruction: See below, Goal: SBP | | | | | | | less than 160, Initial dose: 5 | | | | | | | mcg/min, Increase rate by: 5 | | | | | | | mcg/min every 5 minutes until 20 | | | | | | | mcg/min achieved, then increase | | | | | | | by 10 mcg/min every 5 minutes., | | | | | | | Decrease rate by: 10 mcg/min | | | | | | | every 5 minutes., *: Titrate drug | | | | | | | per order as tolerated. | | | | | | | Titration may vary based on the | | | | | | | patient | | | | | | | | | | | | | | s critical condition. | | | | | | + + + +---------+-------+---+ + + +---------+---------+---+ | Rate/Dose Change | 10/13/19 | 10 | 3 mL/hr | | | | 19 7:08 | mcg/min | | | | | AM PDT | | | | + + +---------+---------+---+ | New Bag | 10/13/19 | 5 | 1.5 | | | | 19 6:57 | mcg/min | mL/hr | | | | AM PDT | | | | + + +---------+---------+---+ +---+---+ | | | +---+---+ + +-------+ +------+---+---+ | oxyCODONE (ROXICODONE) 1 mg/mL | Given | 10/16/19 | 5 mg | | | | liquid 5-10 mg 5-10 mg, Oral, | | 19 1:05 | | | | | EVERY 6 HOURS PRN, Pain, Starting | | AM PDT | | | | | 10/13/18 at 1449 | | | | | | + +-------+ +------+---+---+ +-------+ +------+---+---+ | Given | 10/14/19 | 5 mg | | | | | 19 9:07 | | | | | | PM PDT | | | | +-------+ +------+---+---+ +---+---+ | | | +---+---+ + +-------+ +-------+---+---+ | pravastatin (PRAVACHOL) tablet | Given | 10/16/19 | 80 mg | | | | 80 mg 80 mg, Oral, NIGHTLY, | | 19 8:51 | | | | | First dose on Mon10/12/18 at 0330 | | PM PDT | | | | + +-------+ +-------+---+---+ +-------+ +-------+---+---+ | Given | 10/15/19 | 80 mg | | | | | 19 8:34 | | | | | | PM PDT | | | | +-------+ +-------+---+---+ | Given | 10/14/19 | 80 mg | | | | | 19 9:05 | | | | | | PM PDT | | | | +-------+ +-------+---+---+ +---+---+ | | | +---+---+ + +-------+ +--------+---+---+ | tamsulosin (FLOMAX) capsule 0.4 | Given | 10/17/19 | 0.4 mg | | | | mg 0.4 mg, Oral, 2 TIMES DAILY, | | 19 8:35 | | | | | First dose on Mon10/12/18 at | | AM PDT | | | | | 0900, Do [...] +-------+ +--------+---+---+ +-------+ +--------+---+---+ | Given | 10/16/19 | 0.4 mg | | | | | 19 8:51 | | | | | | PM PDT | | | | +-------+ +--------+---+---+ | Given | 10/16/19 | 0.4 mg | | | | | 19 8:09 | | | | | | AM PDT | | | | +-------+ +--------+---+---+ +---+---+ | | | +---+---+ documented in this encounter
--- OUTSIDE RECORDS SUMMARY | ~2019-09-09 | XMS | Encounter Summary ---
Demographics + + + | Address | [address] | | | [place] [address] | + + + | Home Phone [...] + | Sammi Kohler | ECON | [place] [address] | | + + + + + Care Team Providers + +------+ + | Care Layer Off Name | Role | Phone | + +------+ + PCP | Unavailable | + +------+ + Encounter Details +--------+ + + + + | Date | Type | Department | Care Team | Description | +--------+ + + + + | 10/08/ | Hospital | [facility] | Conversion | Unspecified | | 2015 | Encounter | [facility] | Transaction, | hyperplasia of | | | | ULTRASOUND [address] | Provider Unknown | prostate without | | | | [address] | [phone] | urinary obstruction | | | | [place], [place] | | and other lower | | | | [address] | | urinary tract | | | | [phone] | | symptoms (LUTS); | | | | | | Abdominal pain, | | | | | | unspecified site; | | | | | | Urinary hesitancy | +--------+ + + + + Social [...] | | 2019 | Visit | | [facility] [address] | | | | | | [address] [place], | | | | | | [place] [address] | | | | | | [phone] | | | | | | | | +--------+---------+ + + + | 09/29/ | Office | Urology | Mireya Pack, | | | 2019 | Visit | | [facility] [address] | | | | | | [address] [place], | | | | | | [place] [address] | | | | | | [phone] | | | | | | | | | | | | [place], | | | | | | [address] | | | | | | [place] [address] | | | | | | [phone] | | | | | | | | +--------+---------+ + + + documented as of this encounter Procedures + +--------+ + + + | Procedure Name | Priori | Date/Time | Associated Diagnosis | Comments | | | ty | | | | + +--------+ + + + | US RENAL LIMITED | Routin | 10/08/2014 | | Results for this | | | e | 7:38 PM | | procedure are in the | | | | PDT | | results section. | + +--------+ + + + documented in this encounter Results US Renal Limited (10/08/2014 7:38 PM PDT) + + | Specimen | + + | | + + + + + | Impressions | Performed At | + + + | 1. Simple cyst of the RIGHT kidney, similar to that visualized on | | | prior CT of 04/28/14. 2. The kidneys are otherwise normal. 3. | | | Moderate post void urinary bladder was residual. Electronically | | | signed by Dank Sharma MD on 10/09/2014 7:34 AM | | + + + + + + | Narrative | Performed At | + + + | [facility] 10/08/2014 7:38 PM History: | | | 58 years. Male. Benign prostatic hyperplasia with urinary | | | contraction. Abdominal pain. Urinary hesitancy. Technique: A | | | high-resolution grayscale duplex transducer with color and pulsed | | | Doppler capability was utilized for imaging, with garnica scale and color | | | image recording in multiple anatomical planes. Comparison | | | examinations: Noncontrast CT the abdomen and pelvis on 04/28/14 | | | Findings: The right kidney measures 11.4 x 4.9 x 7.3 cm. No | | | hydronephrosis visualized. Cortical thickness is normal throughout | | | the kidney. A simple cyst is visualized on the lower pole of the | | | RIGHT kidney, moderately exophytic, measuring approximately 27 x 24 | | | x 30 mm. A small focus of hyper echogenicity in the wall of the cyst | | | suggests cystic wall calcification, a benign finding. The | | | calcification is not identified on recent CT examination, however. | | | The left kidney measures 11.4 x 4.9 x 7.3 cm. No hydronephrosis | | | visualized. The contour and cortical thickness of the left kidney | | | are normal. No obvious left renal mass or stone visualized. | | | The estimated filled urinary bladder volume is 94 cc. The bladder | | | wall is smooth, without mass. Ureteral jets are not visualized. | | | Estimated post void bladder volume is 45 cc. | | + + + + + | Procedure Note | + + | Richard, Rad Conversion - 09/20/2018 10:29 PM PDT [facility] | | [facility]10/08/2014 7:38 PM History: 58 years. Male. Benign prostatic hyperplasia with | | urinary contraction. Abdominal pain. Urinary hesitancy. Technique: A high-resolution | | grayscale duplex transducer with color and pulsed Doppler capability was utilized for | | imaging, with garnica scale and color image recording in multiple anatomical planes. | | Comparison examinations: Noncontrast CT the abdomen and pelvis on 04/28/14 Findings: | | The right kidney measures 11.4 x 4.9 x 7.3 cm. No hydronephrosis visualized. Cortical | | thickness is normal throughout the kidney. A simple cyst is visualized on the lower | | pole of the RIGHT kidney, moderately exophytic, measuring approximately 27 x 24 x 30 mm. | | A small focus of hyper echogenicity in the wall of the cyst suggests cystic wall | | calcification, a benign finding. The calcification is not identified on recent CT | | examination, however. The left kidney measures 11.4 x 4.9 x 7.3 cm. No hydronephrosis | | visualized. The contour and cortical thickness of the left kidney are normal. No | | obvious left renal mass or stone visualized. The estimated filled urinary bladder | | volume is 94 cc. The bladder wall is smooth, without mass. Ureteral jets are not | | visualized. Estimated post void bladder volume is 45 cc. IMPRESSION: 1. Simple cyst | | of the RIGHT kidney, similar to that visualized on prior CT of 04/28/14.2. The kidneys | | are otherwise normal.3. Moderate post void urinary bladder was residual. Electronically | | signed by Dank Sharma MD on 10/09/2014 7:34 AM | |1. Simple cyst of the RIGHT kidney, similar to that visualized on prior CT of 04/28/14. | |2. The kidneys are otherwise normal. | |3. Moderate post void urinary bladder was residual. | | | | | + + documented in this encounter Visit Diagnoses + + | Diagnosis | + + | Unspecified hyperplasia of prostate without urinary obstruction and other lower | | urinary tract symptoms (LUTS) | + + | Abdominal pain, unspecified site | + + | Urinary hesitancy | + + documented in this encounter"
--- OUTSIDE RECORDS SUMMARY | ~2019-09-09 | XMS | Encounter Summary ---
Demographics + + + | Address | [address] | | | [place] [address] | + + + | Home Phone [...] + | Sammi Kohler | ECON | [place] [address] | | + + + + + Care Team Providers + +------+ + | Care Plant Pathologist Name | Role | Phone | + +------+ + PCP | Unavailable | + +------+ + Encounter Details +--------+ + + + + | Date | Type | Department | Care Team | Description | +--------+ + + + + | 02/07/ | Emergency | [facility] | Wolfert, Yaakov, DO | Hyperglycemia due to | | 2016 | | [facility] | [address] | type 2 diabetes | | | | EMERG[facility]Y CENTER | [address], | mellitus (HCC) | | | | [address] | [place] [address] | | | | | [place], [place] | [phone] | | | | | [address] | | | | | | [phone] | | | +--------+ + + + [...] + + + | Blood Pressure | 164/77 | 02/07/2015 5:15 PM | | | | | PST | | + + + + + | Pulse | 73 | 02/07/2015 5:15 PM | | | | | PST | | + + + + + | Temperature | 36.1 C (96.9 F) | 02/07/2015 5:15 PM | | | | | PST | | + + + + + | Respiratory Rate | 16 | 02/07/2015 5:15 PM | | | | | PST | | + + + + + | Oxygen Saturation | - | - | | + + + + + | Inhaled Oxygen | - | - | | | Concentration | | | | + + + + + | Weight | 101.7 kg (224 lb 3.4 | 02/07/2015 5:15 PM | | | | oz) | [...] documented as of this encounter ED Notes Yaakov Bridges DO - 02/07/2015 3:19 PM PST ED Provider Notes by Yaakov Bridges DO at 02/07/15 1519 Author: Yaakov Bridges DO Service: Emergency Department Author Type: Physician Filed: 02/08/15 0747 Date of Service: 02/07/15 1702 Status: Signed Technician Plant And Maintenance: Yaakov Bridges DO (Physician) [facility] Department of Emergency Medicine Provider 02/07/15 4296 Pre-arrival Provider Pre-arrival Provider Urgent Care [facility] Provider Name MOY CruzLeisa Pertinent History and Concerns in to urgent care for dizziness and shaking, blood glucose 432, hx of diabetes. 3:19 PM 02/07/2015 History of Present Illness Patient Identification Kevyn Guzman is a 59 y.o. male. Patient information was obtained from patient. History/Exam limitations: none. Patient presented to the Emergency Department by: Car Primary care physician: JERRELL GUTIÉRREZ Chief Complaint Chief Complaint Patient presents with Hyperglycemia- Symptomatic 432 mg/dL at home Dizziness Shaking The patient presents with hyperglycemia. Onset of symptoms was 3 days ago, with a ongoing course since that time. The patient describes these symptoms as high sugar at 432 and rated as moderate in severity. The patient reports taking 3 units of novolog and ate [employer]. Patient also complains of dizziness and nausea. Pt currently denies fever/chills, headache, facial pain, rhinorrhea, sore throat, chest pain, dyspnea, abdominal pain, vomiting, appetite saeed es, bowel or bladder habit changes, skin rash, paresthesias, myalgias/arthralgias, lymphaden opathy, or new bruising. Patient has had similar symptoms previously. Patient has been recently evaluated by Dr. Little for this complaint. Diabetic provider: Fanny Ramírez Past Medical History Diagnosis Date Diabetes mellitus [...] - CHOLECYSTECTOMY; Surgeon: Jevon Vargas DO; Location: [facility] MAIN OR; Service: General; Laterality: N/A; Abdominal surgery Cholecystectomy Skin cancer excision 10/10/2012 Procedure: EXCISION - SKIN CANCER; Surgeon: Sy Fierro MD; Location: [facility] MAIN OR ; Service: Plastics; Laterality: Left; upper arm and upper back w/frozen section Esophagogastroduodenoscopy 03/03/2013 Procedure: ESOPHAGOGASTRODUODENOSCOPY; Surgeon: Howie Gibson MD; Location: [facility] ENDOSCOPY; S ervice: Gastroenterology; Laterality: N/A; Colonoscopy 03/04/2013 Procedure: COLONOSCOPY; Surgeon: Howie Gibson MD; Location: [facility] ENDOSCOPY; Service: Gastroe nterology; Laterality: N/A; Upper gastrointestinal endoscopy Skin biopsy Hernia repair 07/03/2013 Procedure: LAPAROSCOPIC - HERNIA - INCISIONAL; Surgeon: Jevon Vargas DO; Location: [facility] MAIN OR; Service: General; Laterality: N/A; Skin lesion excision Left 05/05/2014 Procedure: EXCISION - LESION - FROZEN SECTION; Surgeon: Sy Fierro MD; Location: [facility] MAIN OR; Service: Plastics; Laterality: Left; forearm Prior to Admission medications Medication Sig Start Date End Date Taking? Authorizing Provider Albuterol Sulfate (VENTOLIN HFA IN) Inhale 2 puffs into the lungs as needed. 108 mcg/act Yes Historical Provider Mlbln-F-Abojdkcjpqfja (BEANO) TABS Take 150 Units by mouth [...] 2 (two) times daily. 12/04/1412/03 Yes Breanne Hurtado DO fenofibrate (TRIGLIDE) 160 MG [...] as needed for Pain. Yes Historical Provider insulin glargine (LANTUS) 100 UNIT/ML injection Inject 82 Units into the skin nightly. Patient taking differently: Inject 60 Units into the skin nightly. 12/03/13 Yes Augustine Agosto MD lamoTRIgine (LAMICTAL) 100 MG tablet Take 100 mg by mouth nightly. Yes Historical Provide r tyiernkch-bdwkulkh-cxiepqlrh hydroxide-simethicone Take 40 mLs by mouth daily [...] alone x 1 wk, moved from [facility], , 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 2 falls in the last 6 months. Family History Problem Relation Age of Onset Heart disease Father Heart disease Sister Diabetes type II Sister Heart Problems Brother Review of Systems Constitutional: Positive for: hyperglycemia Negative for: fever, chills Eyes: Negative for: decreased vision or irritated eyes Nose: Negative for: nosebleed Throat: Negative for: sore throat or dysphagia Cardiovascular/Respiratory: Negative for: chest pain, shortness of breath, cough Gastrointestinal: Positive for: nausea Negative for: abdominal pain, vomiting, diarrhea, constipation, black or bloody stools Genitourinary: Negative for: dysuria, hematuria, or increased urinary frequency Musculoskeletal: Negative for: joint pain, myalgias, or restriction of range of motion Skin: Negative for: laceration or lesion Neuro and psych: Positive for: dizziness Negative for: fainting, head injury, seizure, trouble walking Endocrine/Heme/Lymph: Negative for: swollen lymph nodes, easy bruising Physical Exam BP 132/58 mmHg | Pulse 100 | Temp(Src) 96.9 F (36.1 C) (Temporal) | Resp 22 | Wt 101.7 kg (224 lb 3.3 oz) | SpO2 98% Vitals: mildly tachycardic, otherwise normal. Pulse Oximetry Interpretation: Normal General: Alert, in no acute distress Eyes: Pupils equal and round, equally brisk responsiveness to light, non-icteric Extraocular motion intact ENT: Pharynx normal Moist mucous membranes, pink appearing Neck: Normal appearing Supple CVS: Rate and rhythm normal No murmurs Respiratory: Breath sounds normal bilaterally, normal chest rise and fall, no obvious traum a Abdomen: Normal appearing Soft, non-tender, non-distended Bowel sounds present Back: Moves without difficulty Extremities: Moves all extremities Skin: Color normal Warm and dry Neuro: No gross motor/sensory deficits noted Medical Decision Making and Emergency Department Course ED Department Course 3:19 PM. Patient presents with hyperglycemia. After gathering and discussing HPI, ROS, PMH X, SurgHx, FmHx, and physically examining the patient I have discussed differential consider ations including, but not limited to hyperglycemia, dietary noncompliance, noncompliance wit h diabetic medications, diabetic ketoacidosis, vs other. Of the differential considerations I am most suspicious for hyperglycemia without complication. I will address the pt's gluco se level and discharge when the glucose has normalized. Pt is non-toxic appearing and I anti cipate pt will be discharged. The pt indicates understanding of expected course of ED evalu ation and care. 3:29 PM The pt's glucose is at 402 and his CO2 is normal, I see no evidence of ketoacidosis . 4:16 PM The pt received insulin at 1530, will order a repeat glucose level. 4:48 PM Blood glucose at 264. Vital signs at discharge are stable and pt has been reevaluated and has no signs of end org an dysfunction: BP 160/80 mmHg | Pulse 72 | Temp(Src) 96.9 F (36.1 C) (Temporal) | Resp 18 | Wt 101.7 kg (224 lb 3.3 oz) | SpO2 99% 4:50 PM Pt with subjectively reported improvement in symptoms. Pt is non-toxic appearing. No acute life or limb threatening condition identified. Labs and impressions have been dis cussed. I specifically discussed with the patient that the diagnosis reached after evaluati on today may not represent the totality of the patients medical condition, but after evaluat ion the patient appears appropriate for continuing outpatient evaluation unless otherwise sp ecified. I advised the pt to continue taking his medications as prescribed. I also discussed with the patient that a more precise diagnosis may be reached later as symptoms continue to present and evolve. Given the limitations presented by an isolated evaluation of a previou sly unknown patient inherent to/in an emergency department setting, I have counseled the pat ient to follow up with their primary care provider (or emergent return to the emergency depa rtment if establishment with a primary care provider has not been conducted and condition wo rsens) to ensure ongoing evaluation and treatment as indicated. Expectant outcome, as far a s could be determined by this singular emergency department evaluation, was discussed. Jaime chua also discussed specific, as well as general, emergent RTED instructions. All questions addressed. Pt ready for discharge. Records Reviewed Old medical records. Nursing notes. Hx of COPD and diabetes type II Dozens of prior ED visits for similar and unrelated complaints. The most recent ED visit fo r similar complaints was on 01/25/15. The pt is part of the [facility] care program , which states the pt would be better cared for in an assisted living facility but the pt mo ariella out. The plan also recommends no narcotics should be prescribed for subjective complaint s. The pt's A1C from April 2013 was 7.9 and is taking injected insulin, lantis at night and SS insulin with meals. Referred to endocrinology in the past. No follow up notes found in EPIC. 35 ED visits in the last year. Medications administered during ED Evaluation and Treatment: Medications sodium chloride (bolus) 0.9 % 1,000 mL (1,000 mLs Intravenous New Bag 02/07/15 1529) insulin regular (HUMULIN R) injection 5 Units (5 Units Intravenous Given 02/07/15 1530) Laboratory Evaluation Results Procedure Component Value Ref Range Date/Time POCT glucose [[id number]] Order Status: Sent Urinalysis (reflex to microscopic/reflex to culture) [[id number]] (Abnormal) Collected: 02/07/15 1544 Order Status: Completed Specimen Information: Urine, Clean Catch Updated: 02/07/15 16 07 COLOR UA STRAW CLARITY CLEAR Specific [place], UA 1.017 1.002 - 1.030 LEUKOCYTE ESTERASE NEGATIVE NEGATIVE NITRITE NEGATIVE NEGATIVE UROBILINOGEN NORMAL <1.1 mg/dL PROTEIN NEGATIVE NEGATIVE mg/dL PH,URINE 6.0 5.0 - 8.0 BLOOD NEGATIVE NEGATIVE KETONES NEGATIVE NEGATIVE mg/dL BILIRUBIN NEGATIVE NEGATIVE GLUCOSE >500 (A) NEGATIVE mg/dL WBC 0-2 0 - 5 /hpf RBC 0-2 0 - 2 /hpf BACTERIA NONE SEEN NONE SEEN EPITHELIAL NONE SEEN /lpf Mucus, UA 1+ CBC w Auto Diff [[id number]] (Abnormal) Collected: 02/07/15 1444 Order Status: Completed Specimen Information: Blood Updated: 02/07/15 1559 WBC 12.86 (H) 3.80 - 11.00 K/uL RBC 5.79 (H) 4.20 - 5.70 M/uL HGB 13.6 13.2 - 17.0 g/dL HCT 43.8 39.0 - 50.0 % MCV 75.7 (L) 80.0 - 100.0 fl MCH 23.5 (L) 27.0 - 34.0 pg MCHC 31.1 (L) 32.0 - 35.5 g/dL RDW SD 45.1 37 - 53 fl PLT 292 150 - 400 K/uL MPV 8.1 fl DIFF TYPE AUTOMATED NEUTROPHILS 78.49 % LYMPHOCYTES 14.20 % MONOCYTES 6.64 % EOSINOPHILS 0.19 % BASOPHILS 0.48 % NEUTROPHILS ABS 10.10 (H) 1.90 - 7.40 K/uL LYMPHOCYTES ABS 1.83 1.00 - 3.90 K/uL MONOCYTES ABS 0.85 (H) 0.00 - 0.80 K/uL EOSINOPHILS ABS 0.03 0.00 - 0.50 K/uL BASOPHILS ABS 0.06 0.00 - 0.10 K/uL MORPHOLOGY 1+ Platelet Estimate ADEQUATE Diff Comment Result: SLIDE SCANNED, AGREES WITH AUTOMATED RESULTS. Complete Metabolic Panel [[id number]] (Abnormal) Collected: 02/07/15 1444 Order Status: Completed Specimen Information: Blood Updated: 02/07/15 1513 SODIUM 134 (L) 135 - 143 mmol/L POTASSIUM 3.6 3.5 - 4.9 mmol/L CHLORIDE 96 (L) 99 - 109 mmol/L CO2 25 23 - 32 mmol/L ANION GAP AGAP 16 5 - 20 mmol/L GLUCOSE 402 (H) 65 - 99 mg/dL BUN 11 8 - 25 mg/dL CREATININE 1.5 (H) 0.70 - 1.30 mg/dL BUN/CREAT 7 CALCIUM 8.7 8.5 - 10.5 mg/dL TOTAL PROTEIN 8.1 6.3 - 8.2 g/dL Albumin 3.6 3.3 - 4.8 g/dL GLOBULIN 4.5 1.3 - 4.9 g/dL A/G 0.8 (L) 1.0 - 2.4 TBIL 0.3 0.1 - 1.5 mg/dL ALK PHOS 164 (H) 35 - 115 U/L AST 19 10 - 45 U/L ALT 27 10 - 65 U/L EGFR 51 (L) >60 mL/min/1.73m2 Protime-INR [[id number]] Collected: 02/07/15 1444 Order Status: Completed Specimen Information: Blood Updated: 02/07/15 1504 INR 3.0 Radiology and EKG Evaluation Imaging Results None Labs reviewed. All pertinent positives noted and addressed. Results have been discussed w ith the patient. ED Diagnosis Final diagnosis Hyperglycemia due to type 2 diabetes mellitus (HCC) Disposition: ED Disposition Discharge Condition at discharge: Improving condition Follow-up Information Follow up With Details Comments Contact Info Jerrell Gutiérrez DO Call in 1 day to schedule next available appointment, for continued e valuation and treatment [address] [facility] [address] [facility] Emergency Department As needed, If symptoms worsen [address] [facility] [address] Discharge Medications: New Prescriptions No new medications This document has been prepared with a voice recognition system. The possibility of "sound alike" associate music professor errors, addition and/or deletions may occur. If there is any question ashley deleon contact the author of the document. Procedures Additional Documentation Procedures Attending Note: Documentation assistance provided by Minna Kelly (Scribe). Information recorded by the scribe has been reviewed and validated by me. Troy laughlin with its contents. DO Yaakov Emanuel DO 02/08/15 0747 documented in this en counter Plan of Treatment +--------+---------+ + + + | Date | Type | Specialty | Care Team | Description | +--------+---------+ + + + | 09/10/ | Office | Geriatric Medicine | Holgado, Mireya A, | | | 2019 | Visit | | LEAD QUALITY CONTROL TECHNICIAN [address] | | | | | | [address] [place], | | | | | | [place] [address] | | | | | | [phone] | | | | | | | | +--------+---------+ + + + | 09/29/ | Office | Urology | Mireya Pack, | | | 2019 | Visit | | LEAD QUALITY CONTROL TECHNICIAN [address] | | | | | | [address] [facility], | | | | | | [place] [address] | | | | | | [phone] | | | | | | | | | | | | Toy Wild, DO | | | | | | [address] | | | | | | [place] [address] | | | | | | [phone] | | | | | | | | +--------+---------+ + + + documented as of this encounter Procedures + +--------+ + + + | Procedure Name | Priori | Date/Time | Associated Diagnosis | Comments | | | ty | | | | + +--------+ + + + | POC GLUCOSE | Routin | 02/07/2015 | | Results for this | | | e | 4:43 PM | | procedure are in the | | | | PST | | results section. | + +--------+ + + + | URINALYSIS, REFLEX | Routin | 02/07/2015 | | Results for this | | MICROSCOPIC AND/OR | e | 3:44 PM | | procedure are in the | | CULTURE | | PST | | results section. | + +--------+ + + + | EXTERNAL LAB: CBC | Routin | 02/07/2015 | | Results for this | | | e | 2:44 PM | | procedure are in the | | | | PST | | results section. | + +--------+ + + + | PROTIME INR | Routin | 02/07/2015 | | Results for this | | | e | 2:44 PM | | procedure are in the | | | | PST | | results section. | + +--------+ + + + | COMPREHENSIVE | Routin | 02/07/2015 | | Results for this | | METABOLIC PANEL | e | 2:44 PM | | procedure are in the | | | | PST | | results section. | + +--------+ + + + | POC GLUCOSE | Routin | 02/07/2015 | | Results for this | | | e | 2:32 PM | | procedure are in the | | | | PST | | results section. | + +--------+ + + + documented in this encounter Results POC Glucose (02/07/2015 4:43 PM PST) + + + + + + | Component | Value | Ref Range | Performed | Pathologist | | | | | At | Signature | + + + + + + | Glucose, | 264 (H)Comment: Testing | 65 - 99 mg/dL | EXTERNAL | | | Fingerstick | performed at [facility];[address] | | LAB | | | | [address];[place] | | | | | | [address] | | | | + + + + + + + + | Specimen | + + | | + + + +---------+ + + | Performing | Address | City/State/Zipcode | Phone Number | | Organization | | | | + +---------+ + + | EXTERNAL LAB | | | | + +---------+ + + Urinalysis, Reflex Microscopic and/or Culture (02/07/2015 3:44 PM PST) + + + + + + | Component | Value | Ref Range | Performed | Pathologist | | | | | At | Signature | + + + + + + | Color | STRAWComment: Testing | | EXTERNAL | | | | performed at [facility];[address] | | LAB | | | | [address];[place] | | | | | | [address] | | | | + + + + + + | Clarity, | CLEARComment: Testing | | EXTERNAL | | | Urine | performed at [facility];[address] | | LAB | | | | [address];[place] | | | | | | [address] | | | | + + + + + + | Specific | 1.017Comment: Testing | 1.002 - 1.030 | EXTERNAL | | | [place], | performed at [facility];[address] | | LAB | | | Urine | [address];[place] | | | | | | [address] | | | | + + + + + + | Leukocyte | NEGATIVEComment: Testing | | EXTERNAL | | | Esterase, | performed at [facility];[address] | | LAB | | | Urine | [address];[place] | | | | | | [address] | | | | + + + + + + | Nitrite, | NEGATIVEComment: Testing | | EXTERNAL | | | Urine | performed at [facility];[address] | | LAB | | | | [address];[place] | | | | | | [address] | | | | + + + + + + | Urobilinoge | NORMALComment: Testing | mg/dL | EXTERNAL | | | n, Urine | performed at [facility];[address] | | LAB | | | | [address];[place] | | | | | | [address] | | | | + + + + + + | Protein, | NEGATIVEComment: Testing | mg/dL | EXTERNAL | | | Urine | performed at [facility];[address] | | LAB | | | | [address];[place] | | | | | | [address] | | | | + + + + + + | pH, Urine | 6.0Comment: Testing | 5.0 - 8.0 | EXTERNAL | | | | performed at [facility];[address] | | LAB | | | | [address];[place] | | | | | | [address] | | | | + + + + + + | Blood, | NEGATIVEComment: Testing | | EXTERNAL | | | Urine | performed at [facility];[address] | | LAB | | | | [address];[place] | | | | | | [address] | | | | + + + + + + | Ketones | NEGATIVEComment: Testing | mg/dL | EXTERNAL | | | | performed at [facility];[address] | | LAB | | | | [address];[place] | | | | | | [address] | | | | + + + + + + | Bilirubin, | NEGATIVEComment: Testing | | EXTERNAL | | | Urine | performed at [facility];[address] | | LAB | | | | [address];[place] | | | | | | [address] | | | | + + + + + + | Glucose, | >500 (A)Comment: Testing | mg/dL | EXTERNAL | | | Urine | performed at [facility];[address] | | LAB | | | | [address];[place] | | | | | | [address] | | | | + + + + + + | WBC, UA | 0-2Comment: Testing | 0 - 5 /hpf | EXTERNAL | | | | performed at [facility];[address] | | LAB | | | | [address];[place] | | | | | | [address] | | | | + + + + + + | RBC, UA | 0-2Comment: Testing | 0 - 2 /hpf | EXTERNAL | | | | performed at [facility];[address] | | LAB | | | | [address];[place] | | | | | | [address] | | | | + + + + + + | Bacteria, | NONE SEENComment: | | EXTERNAL | | | UA | Testing performed at | | LAB | | | | [facility];[place] [address] | | | | + + + + + + | Epithelial | NONE SEENComment: | /lpf | EXTERNAL | | | Cells | Testing performed at | | LAB | | | | [facility] | | | | | | [address];[place] [address] | | | | + + + + + + | Mucus, | 1+Comment: Testing | | EXTERNAL | | | Urine | performed at [facility];[address] | | LAB | | | | [address];[place], [place] | | | | | | [address] | | | | + + + + + + + + | Specimen | + + | | + + + +---------+ + + | Performing | Address | City/State/Zipcode | Phone Number | | Organization | | | | + +---------+ + + | EXTERNAL LAB | | | | + +---------+ + + Christiano MARTINEZ (02/07/2015 2:44 PM PST) + + + + + [...] | | | | performed at [facility];[address] | | | | | | [facility];[place], [place] | | | | | | [address] | | | | + + + [...] + +---------+ + + External Lab: CBC (02/07/2015 2:44 PM PST) + + + + + + | Component | Value | Ref Range | Performed | Pathologist | | | | | At | Signature | + + + + + + | WBC | 12.86 (H)Comment: | 3.80 - 11.00 | EXTERNAL | | | | Testing performed at | K/uL | LAB | | | | [facility];[address] | | | | | | [address];[place] [address] | | | | + + + + + + | Non- | 5.79 (H)Comment: Testing | 4.20 - 5.70 | EXTERNAL | | | Red Blood | performed at [facility];[address] | M/uL | LAB | | | Cells | [address];[place] | | | | | Counted | [address] | | | | + + + + + + | Hemoglobin | 13.6Comment: Testing | 13.2 - 17.0 | EXTERNAL | | | | performed at [facility];[address] | g/dL | LAB | | | | [address];[place] | | | | | | [address] | | | | + + + + + + | Hematocrit, | 43.8Comment: Testing | 39.0 - 50.0 % | EXTERNAL | | | POC | performed at [facility];[address] | | LAB | | | | [address];[place] | | | | | | [address] | | | | + + + + + + | MCV | 75.7 (L)Comment: Testing | 80.0 - 100.0 fl | EXTERNAL | | | | performed at [facility];[address] | | LAB | | | | [address];[place] | | | | | | [address] | | | | + + + + + + | MCH | 23.5 (L)Comment: Testing | 27.0 - 34.0 pg | EXTERNAL | | | | performed at [facility];[address] | | LAB | | | | [address];[place] | | | | | | [address] | | | | + + + + + + | MCHC | 31.1 (L)Comment: Testing | 32.0 - 35.5 | EXTERNAL | | | | performed at [facility];[address] | g/dL | LAB | | | | [address];[place] | | | | | | [address] | | | | + + + + + + | RDW-CV | 45.1Comment: Testing | 37 - 53 fl | EXTERNAL | | | | performed at [facility];[address] | | LAB | | | | [address];[place] | | | | | | [address] | | | | + + + + + + | Platelet | 292Comment: Testing | 150 - 400 K/uL | EXTERNAL | | | Count | performed at [facility];[address] | | LAB | | | Plasma | [address];[place] | | | | | | [address] | | | | + + + + + + | MPV | 8.1Comment: Testing | fl | EXTERNAL | | | | performed at [facility];[address] | | LAB | | | | [address];[place] | | | | | | [address] | | | | + + + + + + | Differentia | AUTOMATEDComment: | | EXTERNAL | | | l Type | Testing performed at | | LAB | | | | [facility];[address] | | | | | | [address];[place] [address] | | | | + + + + + + | % Segmented | 78.49Comment: Testing | % | EXTERNAL | | | | performed at [facility];[address] | | LAB | | | Neutrophils | [address];[place] | | | | | | [address] | | | | + + + + + + | % | 14.20Comment: Testing | % | EXTERNAL | | | Lymphocytes | performed at [facility];[address] | | LAB | | | | [address];[place] | | | | | | [address] | | | | + + + + + + | % Monocytes | 6.64Comment: Testing | % | EXTERNAL | | | | performed at [facility];[address] | | LAB | | | | [address];[place] | | | | | | [address] | | | | + + + + + + | % | 0.19Comment: Testing | % | EXTERNAL | | | Eosinophils | performed at [facility];[address] | | LAB | | | | [address];[place] | | | | | | [address] | | | | + + + + + + | % Basophils | 0.48Comment: Testing | % | EXTERNAL | | | | performed at [facility];[address] | | LAB | | | | [address];[place] | | | | | | [address] | | | | + + + + + + | Absolute | 10.10 (H)Comment: | 1.90 - 7.40 | EXTERNAL | | | Segmented | Testing performed at | K/uL | LAB | | | Neutrophils | [facility];[address] | | | | | | [place] [address] | | | | + + + + + + | Absolute | 1.83Comment: Testing | 1.00 - 3.90 | EXTERNAL | | | Lymphocytes | performed at [facility];888 | K/uL | LAB | | | | [address];[place] | | | | | | [address] | | | | + + + + + + | Absolute | 0.85 (H)Comment: Testing | 0.00 - 0.80 | EXTERNAL | | | Monocytes | performed at [facility];888 | K/uL | LAB | | | | [address];[place] | | | | | | [address] | | | | + + + + + + | Absolute | 0.03Comment: Testing | 0.00 - 0.50 | EXTERNAL | | | Eosinophils | performed at [facility];888 | K/uL | LAB | | | | [address];[place] | | | | | | [address] | | | | + + + + + + | Absolute | 0.06Comment: Testing | 0.00 - 0.10 | EXTERNAL | | | Basophils | performed at [facility];888 | K/uL | LAB | | | | [address];[place] | | | | | | [address] | | | | + + + + + + | RBC | 1+Comment: | | EXTERNAL | | | Morphology | ANISO1+MICRO1+HYPO1+OVAL | | LAB | | | | OTesting performed at | | | | | | [facility];[address] | | [address];[place] [address] | | | | | |1+ | | | | | |HYPO | | | | | |1+ | | | | | |OVALO | | | | | |Testing performed at [facility];[address];[place] [address] | | | | | | | | | | + + + + + + | Platelet | ADEQUATEComment: Testing | | EXTERNAL | | | Estimate | performed at [facility];[address] | | LAB | | | | [address];[place] | | | | | | [address] | | | | + + + + + + | Differentia | SLIDE SCANNED, AGREES | | EXTERNAL | | | l Comments | WITH AUTOMATED | | LAB | | | | RESULTS.Comment: Testing | | | | | | performed at [facility];888 | | | | | | [address];[place] | | | | | | [address] | | | | + + + [...] + +---------+ + + Comprehensive Metabolic Panel (02/07/2015 2:44 PM PST) + + + + + + | Component | Value | Ref Range | Performed | Pathologist | | | | | At | Signature | + + + + + + | Na | 134 (L)Comment: Testing | 135 - 143 | EXTERNAL | | | | performed at [facility];888 | mmol/L | LAB | | | | [address] [facility];[place], [place] | | | | | | [address] | | | | + + + + + + | K | 3.6Comment: Testing | 3.5 - 4.9 | EXTERNAL | | | | performed at [facility];888 | mmol/L | LAB | | | | [address];[place] | | | | | | [address] | | | | + + + + + + | Cl | 96 (L)Comment: Testing | 99 - 109 mmol/L | EXTERNAL | | | | performed at [facility];[address] | | LAB | | | | [address];[place] | | | | | | [address] | | | | + + + + + + | CO2 | 25Comment: Testing | 23 - 32 mmol/L | EXTERNAL | | | | performed at [facility];[address] | | LAB | | | | [address];[place] | | | | | | [address] | | | | + + + + + + | Anion Gap | 16Comment: Testing | 5 - 20 mmol/L | EXTERNAL | | | | performed at [facility];[address] | | LAB | | | | [address];[place] | | | | | | [address] | | | | + + + + + + | Glucose, | 402 (H)Comment: Testing | 65 - 99 mg/dL | EXTERNAL | | | Fasting | performed at [facility];[address] | | LAB | | | | [address];[place] | | | | | | [address] | | | | + + + + + + | BUN | 11Comment: Testing | 8 - 25 mg/dL | EXTERNAL | | | | performed at [facility];[address] | | LAB | | | | [address];[place] | | | | | | [address] | | | | + + + + + + | Creatinine | 1.5 (H)Comment: Testing | 0.70 - 1.30 | EXTERNAL | | | | performed at [facility];888 | mg/dL | LAB | | | | [address];[place] | | | | | | [address] | | | | + + + + + + | BUN/Creatin | 7Comment: Testing | | EXTERNAL | | | ine Ratio | performed at [facility];888 | | LAB | | | | [address];[place] | | | | | | [address] | | | | + + + + + + | Calcium | 8.7Comment: Testing | 8.5 - 10.5 | EXTERNAL | | | | performed at [facility];888 | mg/dL | LAB | | | | [address];[place] | | | | | | [address] | | | | + + + + + + | Protein, | 8.1Comment: Testing | 6.3 - 8.2 g/dL | EXTERNAL | | | Total | performed at [facility];[address] | | LAB | | | | [address];[place] | | | | | | [address] | | | | + + + + + + | Albumin | 3.6Comment: Testing | 3.3 - 4.8 g/dL | EXTERNAL | | | | performed at [facility];[address] | | LAB | | | | [address];[place] | | | | | | [address] | | | | + + + + + + | Globulin | 4.5Comment: Testing | 1.3 - 4.9 g/dL | EXTERNAL | | | | performed at [facility];[address] | | LAB | | | | [address];[place] | | | | | | [address] | | | | + + + + + + | A/G Ratio | 0.8 (L)Comment: Testing | 1.0 - 2.4 | EXTERNAL | | | | performed at [facility];[address] | | LAB | | | | [address];[place] | | | | | | [address] | | | | + + + + + + | Bilirubin | 0.3Comment: Testing | 0.1 - 1.5 mg/dL | EXTERNAL | | | Total | performed at [facility];[address] | | LAB | | | | [address];[place] | | | | | | [address] | | | | + + + + + + | ALP, | 164 (H)Comment: Testing | 35 - 115 U/L | EXTERNAL | | | External | performed at [facility];[address] | | LAB | | | | [address];[place] | | | | | | [address] | | | | + + + + + + | AST | 19Comment: Testing | 10 - 45 U/L | EXTERNAL | | | | performed at [facility];[address] | | LAB | | | | [address];[place] | | | | | | [address] | | | | + + + + + + | ALT | 27Comment: Testing | 10 - 65 U/L | EXTERNAL | | | | performed at [facility];[address] | | LAB | | | | [address];[place] | | | | | | [address] | | | | + + + [...] | | | | | at [facility];[address] [place] [address] | | | | | | Bl;[place] [address] | | | | + + + + + + + + | Specimen | + + | Blood specimen | | (specimen) | + + + +---------+ + + | Performing | Address | City/State/Zipcode | Phone Number | | Organization | | | | + +---------+ + + | EXTERNAL LAB | | | | + +---------+ + + POC Glucose (02/07/2015 2:32 PM PST) + + + + + + | Component | Value | Ref Range | Performed | Pathologist | | | | | At | Signature | + + + + + + | Glucose, | 398 (H)Comment: Testing | 65 - 99 mg/dL | EXTERNAL | | | Fingerstick | performed at [facility];[address] | | LAB | | | | [address];[place] | | | | | | [address] | | | | + + + [...] 2 diabetes mellitus (HCC) | + + documented in this encounter
--- OUTSIDE RECORDS SUMMARY | ~2019-09-09 | XMS | Encounter Summary ---
Demographics + + + | Address | [address] | | | [place] [address] | + + + | Home Phone [...] Sammi Kohler | ECON | [place] [address] | | + + + + + Care Team Providers + +------+ + | Care Radiotelegraph Operator Name | Role | Phone | [...] + + | 07/21/ | Telephone | [facility] | Mireya Pack, | Other | | 2020 | | [facility] [address] | BREAST BUFFER [address] | | | | | [address] | [address] [place], | | | | | [place], [place] | [place] [address] | | | | | [address] | [phone] | | | | | [phone] | | | +--------+ + + + [...] Miscellaneous Notes Telephone Encounter - Fanny Ramos, Supervisor Braiding - 07/22/2019 2:11 PM PDTCalle d pt and scheduled him for [facility] ED f/u visit on 07/31/19 @ 11:30am. Pt states he will bring all medications he is currently taking to appt. elephone Encounter - Mireya Pack NP - 2:04 PM PDTRecommend schedule in person visit 07/31/19 and bring all medications to appointment I could perform a quick tele visit 07/23/19 if acute concerns elephone Encounter - Diane Hill RN - 07/22/2019 1:40 PM PDTPt is trying to schedule a follow up visit for [facility] ER visit from 07-15-19. Please advise when you would like to see this pt. He is able to do a virtual visit.Electro nically signed by Diane Hill, EVE at 07/22/2019 1:48 PM PDTTelephone Encounter - Heidi Moody - 07/22/2019 1:10 PM PDTPatient was in the hospital and needs to make an apt plea se call him at [phone] Heidi Moody elephone Encounter - Heidi Taylor - 07/22/2019 7:37 AM PDTPatient is calling to talk to RN Please call him at [phone] Heidi Moody documented in this enco unter Plan of Treatment +--------+---------+ + + + | Date | Type | Specialty | Care Team | Description | +--------+---------+ + + + | 09/10/ | Office | Geriatric Medicine | Mireya Pack, | | | 2019 | Visit | | BREAST BUFFER [address] | | | | | | [address] [place], | | | | | | [place] [address] | | | | | | [phone] | | | | | | | | +--------+---------+ + + + | 09/29/ | Office | Urology | Mireya Pack, | | | 2019 | Visit | | BREAST BUFFER [address] | | | | | | [address] [place], | | | | | | [place] [address] | | | | | | [phone] | | | | | | | | | | | | Toy Wild, DO | | | | | | [address] | | | | | | [place] [address] | | | | | | [phone] | | | | | | | [...]
--- OUTSIDE RECORDS SUMMARY | ~2019-09-09 | XMS | Encounter Summary ---
Demographics + + + | Address | [address] | | | [place] [address] | + + + | Home Phone [...] Sammi Kohler | ECON | [place] [address] | | + + + + + Care Team Providers + +------+ + | Care Stroke Program Coordinator Name | Role | Phone | [...] + + | 02/20/ | Telephone | [facility] | Mireya Pack, | Paperwork (Decision | | 2020 | | [facility] [address] | TOPPIECE CHOPPER [address] | making documents) | | | | [address] | [address] [place], | | | | | [place], [place] | [place] [address] | | | | | [address] | [phone] | | | | | [phone] | | | +--------+ + + + [...] Miscellaneous Notes Telephone Encounter - Mel Morton Electroslag Welding Machine Operator - 02/21/2019 4:00 PM PSTReceive d fax and scanned to CT that is offsite with PCP. elephone Encounter - Mel Morton Electroslag Welding Machine Operator - 02/21/2019 8:35 AM PSTCalled and left message, with clinic information, adviscamilla arreguin that we did not receive paperwork. Requested that it be refaxed to clinic. Provided main fax number [phone] as well as alternate fax [phone]. elephone Encounter - Patti Lee - 02/06 4:58 PM PSTMelissa with Adult Protective Services, is calling regarding Paperwork (D ecision making documents) and would like a call back. Additional Call Details: States she faxed over decision making documents on 02.25.19 and w lupe like to know if it has been received. Please call her back at [phone] (work cell). If this is a symptom based call, was patient offered triage? Not Applicable If this is a symptom based call and you were unable to immediately transfer the call to a ashley pascula pole incisor operator was caller made aware that if [...] | | 2019 | Visit | | TOPPIECE CHOPPER [address] | | | | | | [address], | | | | | | [place] [address] | | | | | | [phone] | | | | | | | | +--------+---------+ + + + | 09/29/ | Office | Urology | Mireya Pack, | | | 2019 | Visit | | TOPPIECE CHOPPER [address] | | | | | | [facility] [address] [place], | | | | | | [place] [address] | | | | | | [phone] | | | | | | | | | | | | Toy Wild, | | | | | | [address] | | | | | | [place] [address] | | | | | | [phone] | | | | | | | [...]
--- OUTSIDE RECORDS SUMMARY | ~2019-09-09 | XMS | Encounter Summary ---
Demographics + + + | Address | [address] | | | [place] [address] | + + + | Home Phone [...] + | Sammi Kohler | ECON | [place] [address] | | + + + + + Care Team Providers + +------+ + | Care Systematic Theology Professor Name | Role | Phone | + +------+ + PCP | Unavailable | + +------+ + Encounter Details +--------+ + + + + | Date | Type | Department | Care Team | Description | +--------+ + + + + | 12/07/ | Emergency | [facility] | Kristian Mae | Chest pain; | | 2012 | [facility] | MD [address] | Dyspepsia; | | | | EM[facility]Y [facility]ENTER | JUAN WINSTON, | Hypertension; | | | | [address] | [place] [address] | Dizziness | | | | [place], [place] | [phone] | | | | | [address] | | | | | | [phone] | | | +--------+ + + + [...] 12/07/121958 Date of Service: 12/07/121958 Status: Signed Database Security Administrator: Ivonne Hernandez RN (Registered Nurse) Pt to CT. Ivonne Hernandez RN 12/07/121958 onver ivana Transaction, Provider Unknown - 12/07/2012 5:28 PM PDT ED Notes by Jv Liriano RN at 12/07/121727 Author: Jv Liriano RN Service: (none) Author Type: Registered Nurse Filed: 12/07/121727 Date of Service: 12/07/121727 Status: Signed Database Security Administrator: Jv Liriano RN (Registered Nurse) Pt complains of a headache at this time Jv Liriano RN 12/07/121727 ristian Mae MD - 12/07/2012 5:10 PM PDT ED Provider Notes by Kristian Mae MD at 12/07/121709 Author: Kristian Mae MD Service: (none) Author Type: Physician Filed: 12/08/12 1606 Date of Service: 12/07/121709 Status: Signed Database Security Administrator: Kristian Mae MD (Physician) [facility] [...] Value Ref Range Date/Time Brain natriuretic peptide [[id number]] Collected:12/07/121723 Order Status:Completed Updated:12/07/12 1802 BRAIN NATRIURETIC PEPTIDE 10.9 0 - 100 pg/mL [facility] Cardiac Panel ([facility] Only) [[id number]] (Abnormal) Collected:12/07/121723 Order Status:Completed Updated:12/07/12 1757 WBC [...] - 3.6 ng/mL CK-MB Index 1.3 Lipase [[id number]] Collected:12/07/12 172 Order Status:Completed Updated:12/07/12 1757 LIPASE 121 73 - 393 U/L POC cardiac troponin [[id number]] Collected:12/07/121734 Order Status:Completed Updated:12/07/121747 POC CARDIAC TROPONIN [...] DO In 2 days As needed [address] [facility] [address] [facility] Emergency Department If symptoms worsen [address] [facility] [address] Additional Documentation Procedures Attending Note: Documentation assistance [...] 12/07/121708 Date of Service: 12/07/121708 Status: Signed Database Security Administrator: Jv Liriano RN (Registered Nurse) Complains of lower back pain Jv Liriano RN 12/07/121708 onver ivana Transaction, Provider Unknown - 12/07/2012 5:08 PM PDT ED Notes by Jv Liriano RN at 12/07/121707 Author: Jv Liriano RN Service: (none) Author Type: Registered Nurse Filed: 12/07/121707 Date of Service: 12/07/121707 Status: Signed Database Security Administrator: Jv Liriano RN (Registered Nurse) Pt states [...] 12/07/121700 Date of Service: 12/07/121700 Status: Signed Database Security Administrator: Michelle Palomares RN (Registered Nurse) Pt now c/o chest pain. notified Michelle Palomares RN 12/07/121700 docume nted in this encounter Plan of Treatment +--------+---------+ + + + | Date | Type | Specialty | Care Team | Description | +--------+---------+ + + + | 09/10/ | Office | Geriatric Medicine | Mireya Pack, | | | 2019 | Visit | | DOBBY LOOM WEAVER [address] | | | | | | [address] [place], | | | | | | [place] [address] | | | | | | [phone] | | | | | | | | +--------+---------+ + + + | 09/29/ | Office | Urology | Mireya Pack, | | | 2019 | Visit | | DOBBY LOOM WEAVER [address] | | | | | | [address] [place], | | | | | | [place] [address] | | | | | | [phone] | | | | | | | | | | | | Toy Wild, DO | | | | | | [address] | | | | | | [place] [address] | | | | | | [phone] | | | | | | | [...] symptoms not explained by this te michaelnique. | | | | | + ---------+ [...] | | | | | ONLY, -COMPUTER ([employer]), | | | | | | ZAYNAB Talbert | | | | | | (4) on 12/08/2012 6:42:53 | | | | | | AM | | | | + + + + + + + + | Specimen | + + | | + + + + + | Narrative | Performed At | + + + | Historically converted procedure from [facility] | EXTERNAL LAB | + + [...]
--- OUTSIDE RECORDS SUMMARY | ~2019-09-09 | XMS | Encounter Summary ---
Demographics + + + | Address | [address] [facility] | | | [place] [address] | + + + | Home Phone [...] Sammi Kohler | ECON | [place] [address] | | + + + + + Care Team Providers + +------+ + | Care Paint Factory Worker Name | Role | Phone | [...] 2020 | | [facility] [address] | CARGO TANK MECHANIC [address] | | | | | [address] | [address] [place], | | | | | [place], [place] | [place] [address] | | | | | [address] | [phone] | | | | | [phone] | | | +--------+ + + + [...] calling Araseli back. Please call him at [phone] elephone Encounter - Lucia Frankel RN - [...] | | 2019 | Visit | | CARGO TANK MECHANIC [address] | | | | | | [address] [place], | | | | | | [place] [address] | | | | | | [phone] | | | | | | | | +--------+---------+ + + + | 09/29/ | Office | Urology | Mireya Pack, | | | 2019 | Visit | | CARGO TANK MECHANIC [address] | | | | | | [address] [place], | | | | | | [place] [address] | | | | | | [phone] | | | | | | | | | | | | Toy Wild DO | | | | | | [address] | | | | | | [place] [address] | | | | | | [phone] | | | | | | | | +--------+---------+ + + + documented as of this encounter Visit Diagnoses Not on filedocumented in this encounter"
--- OUTSIDE RECORDS SUMMARY | ~2019-09-09 | XMS | Encounter Summary ---
Demographics + + + | Address | [address] | | | [place] [address] | + + + | Home Phone [...] + | Sammi Kohler | ECON | [place] [address] | | + + + + + Care Team Providers + +------+ + | Care Rn Disease Management Name | Role | Phone | + [...] | | | | EM[facility] | [place] [address] | vomiting with | | | | [address] | [phone] | nausea, vomiting of | | | | [place], [place] | | unspecified type | | | | [address] | | | | | | [phone] | | | +--------+ + + + [...] 0038 Date of Service: 12/04/14514 Status: Signed Bank Clerk: Breanne Hurtado DO (Physician) [facility] Department of Emergency Medicine 5:15 AM History [...] pain Stroke (HCC) TIA (transient ischemic attack) correction (current) use of 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 Past Surgical History [...] lungs as needed. 108 mcg/act Historical Provider Qhghs-H-Yygcexpcbecmo (BEANO) TABS Take 150 Units by mouth [...] 100 mg by mouth nightly. Historical Provider bbucicitg-zfgjvtpf-wxehebfpn hydroxide-simethicone Take 40 mLs by mouth daily [...] by [facility] 10/16/14 12/15/14 Jaelyn Strand, MANAGER OF MAINTENANCE Allergies Allergen Reactions Vitamin B12 Rash History [...] Lives alone x 1 wk, moved from [facility], , 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 2 falls [...] CV/Resp: Negative for chest pain Positive for jhyjyuszq-tj-vjbfeh Negative for cough GI: Negative for abdominal [...] reviewed (Using the electronic record system of [facility], Troy arellano reviewed the records with regard to the past medical/surgical history, previous medic ations, and allergies). Previous ED visits for similar and unrelated complaints. Laboratory Evaluation Results Procedure Component Value Ref Range Date/Time Protime-INR [[id number]] Collected: 12/04/14534 Order Status: Completed Updated: 12/04/14650 INR 1.3 CBC with differential [[id number]] (Abnormal) Collected: 12/04/14534 Order Status: Completed Specimen [...] PLT MORPH Platelet Estimate ADEQUATE Ketones, Serum [[id number]] Collected: 12/04/14534 Order Status: Completed Specimen Information: Blood Updated: 12/04/14627 KETONES,SERUM NEGATIVE NEGATIVE Sedimentation Rate (ESR) [[id number]] (Abnormal) Collected: 12/04/14534 Order Status: Completed Specimen Information: Blood Updated: 12/04/14625 ESR 28 (H) 0 - 20 mm/Hr Lactic acid [[id number]] Collected: 12/04/14554 Order Status: Completed Specimen Information: Blood Updated: 12/04/14621 LACTIC ACID 0.9 0.4 - 2.0 mmol/L Lipase [[id number]] Collected: 12/04/14534 Order Status: Completed Specimen Information: Blood Updated: 12/04/14618 LIPASE 176 73 - 393 U/L C-reactive protein [[id number]] (Abnormal) Collected: 12/04/14534 Order Status: Completed Specimen Information: Blood Updated: 12/04/14618 CRP 0.5 (H) <0.5 mg/dL Magnesium [[id number]] Collected: 12/04/14534 Order Status: Completed Specimen Information: Blood Updated: 12/04/14618 MAGNESIUM 1.9 1.7 - 2.4 mg/dL Phosphorus [[id number]] Collected: 12/04/14534 Order Status: Completed Specimen Information: Blood Updated: 12/04/14618 PHOSPHORUS 3.0 2.3 - 4.8 mg/dL Comprehensive metabolic panel [[id number]] (Abnormal) Collected: 12/04/14534 Order Status: Completed Specimen [...] EGFR >60 >60 mL/min/1.73m2 POC cardiac troponin [[id number]] Collected: 12/04/1442 Order Status: Completed Updated: 12/04/14555 [...] With Details Comments Contact Info [facility] Emergency Department If symptoms worsen [address] [facility] [address] Jerrell Jaquezdaniel, DO Go in 3 days As needed [address] [facility] [address] Zach Sen IV, MD Schedule an appointment as soon as possible for a visit today fo r GI follow up [address] 1st floor [facility] [address] Discharge Medications: New Prescriptions FAMOTIDINE (PEPCID) 20 MG TABLET Take 1 tablet by mouth 2 (two) times daily. This chart has been created using [employer] Speech Recognition software. The chart has been [...] | | 2019 | Visit | | APPLICATION SECURITY DEVELOPER [address] | | | | | | [address] [place], | | | | | | [place] [address] | | | | | | [phone] | | | | | | | | +--------+---------+ + + + | 09/29/ | Office | Urology | Mireya Pack, | | | 2019 | Visit | | APPLICATION SECURITY DEVELOPER [address] | | | | | | [address] [place], | | | | | | [place] [address] | | | | | | [phone] | | | | | | | | | | | | Toy Wild, DO | | | | | | [address] | | | | | | [place] [address] | | | | | | [phone] | | | | | | | [...] + + | No acute cardiopulmonary abnormality Electronically signed by | | | Titi mabry 12/04/2014 7:12 AM | | + + + [...] Conversion - 09/20/2018 10:29 PM PDT NORAH [facility]re [facility] | | 1955 | | 58 [...] EXTERNAL | | | | performed at [facility];[address] | mmol/L | LAB | | | | [address];[place], [place] | | | | | | [address] | | | | + + + [...] | | | Blood | performed at [facility];[address] | | LAB | | | | [address];[place] | | | | | | [address] | | | | + + + [...] EXTERNAL | | | | performed at [facility];[address] | | LAB | | | | [address];[place], [place] | | | | | | [address] | | | | + + + [...] | | | | | performed at [facility];[address] | | | | | | [facility];[place], [place] | | | | | | [address] | | | | + + + [...] EXTERNAL | | | | performed at [facility];[address] | K/uL | LAB | | | | [address];[place] | | | | | | [address] | | | | + + + + + + | Non- | 5.28Comment: Testing | 4.20 - 5.70 | EXTERNAL | | | Red Blood | performed at [facility];[address] | M/uL | LAB | | | Cells | [address];[place] | | | | | Counted | [address] | | | | + + + + + + | Hemoglobin | 13.0 (L)Comment: Testing | 13.2 - 17.0 | EXTERNAL | | | | performed at [facility];[address] | g/dL | LAB | | | | [address];[place] | | | | | | [address] | | | | + + + + + + | Hematocrit, | 40.0Comment: Testing | 39.0 - 50.0 % | EXTERNAL | | | POC | performed at [facility];[address] | | LAB | | | | [address];[place] | | | | | | [address] | | | | + + + + + + | MCV | 75.9 (L)Comment: Testing | 80.0 - 100.0 fl | EXTERNAL | | | | performed at [facility];[address] | | LAB | | | | [address];[place] | | | | | | [address] | | | | + + + + + + | MCH | 24.6 (L)Comment: Testing | 27.0 - 34.0 pg | EXTERNAL | | | | performed at [facility];[address] | | LAB | | | | [address];[place] | | | | | | [address] | | | | + + + + + + | MCHC | 32.4Comment: Testing | 32.0 - 35.5 | EXTERNAL | | | | performed at [facility];[address] | g/dL | LAB | | | | [address];[place] | | | | | | [address] | | | | + + + + + + | RDW-CV | 43.8Comment: Testing | 37 - 53 fl | EXTERNAL | | | | performed at [facility];[address] | | LAB | | | | [address];[place] | | | | | | [address] | | | | + + + + + + | Platelet | 298Comment: Testing | 150 - 400 K/uL | EXTERNAL | | | Count | performed at [facility];[address] | | LAB | | | Plasma | [address];[place] | | | | | | [address] | | | | + + + + + + | MPV | 7.4Comment: Testing | fl | EXTERNAL | | | | performed at [facility];[address] | | LAB | | | | [address];[place] | | | | | | [address] | | | | + + + + + + | Differentia | AUTOMATEDComment: | | EXTERNAL | | | l Type | Testing performed at | | LAB | | | | [facility];[place] [address] | | | | + + + + + + | % Segmented | 52.18Comment: Testing | % | EXTERNAL | | | | performed at [facility];[address] | | LAB | | | Neutrophils | [address];[place] | | | | | | [address] | | | | + + + + + + | % | 31.70Comment: Testing | % | EXTERNAL | | | Lymphocytes | performed at [facility];[address] | | LAB | | | | [address];[place] | | | | | | [address] | | | | + + + + + + | % Monocytes | 9.93Comment: Testing | % | EXTERNAL | | | | performed at [facility];[address] | | LAB | | | | [address];[place] | | | | | | [address] | | | | + + + + + + | % | 5.21Comment: Testing | % | EXTERNAL | | | Eosinophils | performed at [facility];[address] | | LAB | | | | [address];[place] | | | | | | [address] | | | | + + + + + + | % Basophils | 0.98Comment: Testing | % | EXTERNAL | | | | performed at [facility];[address] | | LAB | | | | [address];[place] | | | | | | [address] | | | | + + + + + + | Absolute | 4.60Comment: Testing | 1.90 - 7.40 | EXTERNAL | | | Segmented | performed at [facility];[address] | K/uL | LAB | | | Neutrophils | [address];[place] | | | | | | [address] | | | | + + + + + + | Absolute | 2.79Comment: Testing | 1.00 - 3.90 | EXTERNAL | | | Lymphocytes | performed at [facility];[address] | K/uL | LAB | | | | [address];[place] | | | | | | [address] | | | | + + + + + + | Absolute | 0.88 (H)Comment: Testing | 0.00 - 0.80 | EXTERNAL | | | Monocytes | performed at [facility];[address] | K/uL | LAB | | | | [address];[place] | | | | | | [address] | | | | + + + + + + | Absolute | 0.46Comment: Testing | 0.00 - 0.50 | EXTERNAL | | | Eosinophils | performed at [facility];[address] | K/uL | LAB | | | | [address];[place] | | | | | | [address] | | | | + + + + + + | Absolute | 0.09Comment: Testing | 0.00 - 0.10 | EXTERNAL | | | Basophils | performed at [facility];[address] | K/uL | LAB | | | | [address];[place] | | | | | | [address] | | | | + + + + + + | RBC | NORMAL PLT MORPHComment: | | EXTERNAL | | | Morphology | 1+HYPO1+MICROTesting | | LAB | | | | performed at [facility];[address] | | | | | | [address];[place] | | | | | | [address] | | | | | |MICRO | | | | | |Testing performed at [facility];[address];[place] [address] | | | | | | | | | | + + + + + + | Platelet | ADEQUATEComment: Testing | | EXTERNAL | | | Estimate | performed at [facility];[address] | | LAB | | | | [address];[place] | | | | | | [address] | | | | + + + [...] EXTERNAL | | | | performed at [facility];[address] | | LAB | | | | [address];[place], [place] | | | | | | [address] | | | | + + + [...] EXTERNAL | | | | performed at [facility] | | LAB | | | | [address] [facility];[place], [place] | | | | | | [address] | | | | + + + [...] EXTERNAL | | | | performed at [facility];[address] | | LAB | | | | [address];[place] | | | | | | [address] | | | | + + + [...] EXTERNAL | | | | performed at [facility];[address] | | LAB | | | | [address];[place], [place] | | | | | | [address] | | | | + + + [...] EXTERNAL | | | | performed at [facility];[address] | mmol/L | LAB | | | | [address];[place] | | | | | | [address] | | | | + + + + + + | K | 3.6Comment: Testing | 3.5 - 4.9 | EXTERNAL | | | | performed at [facility];[address] | mmol/L | LAB | | | | [address];[place] | | | | | | [address] | | | | + + + + + + | Cl | 107Comment: Testing | 99 - 109 mmol/L | EXTERNAL | | | | performed at [facility];[address] | | LAB | | | | [address];[place] | | | | | | [address] | | | | + + + + + + | CO2 | 27Comment: Testing | 23 - 32 mmol/L | EXTERNAL | | | | performed at [facility];[address] | | LAB | | | | [address];[place] | | | | | | [address] | | | | + + + + + + | Anion Gap | 8Comment: Testing | 5 - 20 mmol/L | EXTERNAL | | | | performed at [facility];[address] | | LAB | | | | [address];[place] | | | | | | [address] | | | | + + + + + + | Glucose, | 155 (H)Comment: Testing | 65 - 99 mg/dL | EXTERNAL | | | Fasting | performed at [facility];[address] | | LAB | | | | [address];[place] | | | | | | [address] | | | | + + + + + + | BUN | 14Comment: Testing | 8 - 25 mg/dL | EXTERNAL | | | | performed at [facility];[address] | | LAB | | | | [address];[place] | | | | | | [address] | | | | + + + + + + | Creatinine | 0.83Comment: Testing | 0.70 - 1.30 | EXTERNAL | | | | performed at [facility];[address] | mg/dL | LAB | | | | [address];[place] | | | | | | [address] | | | | + + + + + + | BUN/Creatin | 17Comment: Testing | | EXTERNAL | | | ine Ratio | performed at [facility];[address] | | LAB | | | | [address];[place] | | | | | | [address] | | | | + + + + + + | Calcium | 8.8Comment: Testing | 8.5 - 10.5 | EXTERNAL | | | | performed at [facility];[address] | mg/dL | LAB | | | | [address];[place] | | | | | | [address] | | | | + + + + + + | Protein, | 7.4Comment: Testing | 6.3 - 8.2 g/dL | EXTERNAL | | | Total | performed at [facility];[address] | | LAB | | | | [address];[place] | | | | | | [address] | | | | + + + + + + | Albumin | 3.4 (L)Comment: Testing | 3.6 - 5.0 g/dL | EXTERNAL | | | | performed at [facility];[address] | | LAB | | | | [address];[place] | | | | | | [address] | | | | + + + + + + | Globulin | 4.0Comment: Testing | 1.3 - 4.9 g/dL | EXTERNAL | | | | performed at [facility];[address] | | LAB | | | | [address];[place] | | | | | | [address] | | | | + + + + + + | A/G Ratio | 0.8 (L)Comment: Testing | 1.0 - 2.4 | EXTERNAL | | | | performed at [facility];[address] | | LAB | | | | [address];[place] | | | | | | [address] | | | | + + + + + + | Bilirubin | 0.3Comment: Testing | 0.1 - 1.5 mg/dL | EXTERNAL | | | Total | performed at [facility];[address] | | LAB | | | | [address];[place] | | | | | | [address] | | | | + + + + + + | ALP, | 108Comment: Testing | 35 - 115 U/L | EXTERNAL | | | External | performed at [facility];[address] | | LAB | | | | [address];[place] | | | | | | [address] | | | | + + + + + + | AST | 19Comment: Testing | 10 - 45 U/L | EXTERNAL | | | | performed at [facility];[address] | | LAB | | | | [address];[place] | | | | | | [address] | | | | + + + + + + | ALT | 22Comment: Testing | 10 - 65 U/L | EXTERNAL | | | | performed at [facility];[address] | | LAB | | | | [address];[place] | | | | | | [address] | | | | + + + [...] | | | | | | at [facility] | | | | | | [address];[place] [address] | | | | + + + [...] | | | | | | associate editor Keyla Gregory | | | | [...]
--- OUTSIDE RECORDS SUMMARY | ~2019-09-09 | XMS | Encounter Summary ---
Demographics + + + | Address | [address] [facility] | | | [place] [address] | + + + | Home Phone [...] | Sammi Kohler | ECON | [place] [address] | | + + + + + Care Team Providers + +------+ + | Care Jewelry Estimator Name | Role | Phone | [...] | | | | EMERGENCY CENTER | [place] [address] | of left lower | | 01/19/ | | [address] | [phone] | extremity | | 2013 | | [place], [place] | | | | | | [address] | | | | | | [phone] | | | +--------+ + + + [...] 01/18/142145 Date of Service: 01/18/142144 Status: Signed Coal Trimmer Machine Operator: Shree Reilly RN (Registered Nurse) Road Test: [...] 01/20/142045 Date of Service: 01/18/141847 Status: Signed Coal Trimmer Machine Operator: Breanne Hurtado DO (Physician) [facility] Department of Emergency Medicine 6:49 PM History [...] pressure. The pt states he resides at [facility] and his friend drove him to the emergency department. The patie nt also complains of nausea, ckkenmkhe-kn-iilmpx, back pain (chronic), and L pain and swelli ng that onset at the time of his "chest pain". Patient denies bloody stools or black stools. Care prior to arrival consisted of "an anxiety pill and a pain pill", with minimal relief. Echo from May 2013 was unremarkable with an EF > 70% Oct 7: CT chest PE protocol normal Pt's [...] recently included: Coronary angiograph 10/20 which was norm al (pt's commercial intern is Dr. Sterling) PCP: JERRELL GUTIÉRREZ Past [...] SKIN CANCER; Surgeon: Sy Fierro MD; Location: [facility] [...] lungs as needed. 108 mcg/act Historical Provider Jnwqw-U-Rnslbwierzwii (BEANO) TABS Take 150 Units by mouth [...] daily. 180 mg at hs 11/30/13 11/30/14 [facility] carlyn Mae MD docusate sodium [...] 100 mg by mouth nightly. Historical Provider ambredtri-cvaiwyvo-nwfituakl hydroxide-simethicone Take 40 mLs by mouth daily [...] for chest pain (epigastric pain) Positive for vmarnmtxo-se-kciuwc Negative for cough GI: Negative for abdominal [...] Old medical records. Nursing notes. Refer to [facility] Nursing notes. Nursing notes reviewed for chief complaint, medications, clinical presentati on and vital signs. Old ED records reviewed (Using the electronic record system of [facility], I car efully reviewed the records with regard to the past medical/surgical history, previous medic ations, and allergies). Laboratory Evaluation Results Procedure Component Value Ref Range Date/Time D Dimer,Quantitative [[id number]] (Abnormal) Collected: 01/18/141928 Order Status: Completed Updated: 01/18/142214 D DIMER, QUANTITATIVE 0.62 (H) 0.19 - 0.50 mg/L FEU Comprehensive metabolic panel [[id number]] (Abnormal) Collected: 01/18/141928 Order Status: Completed Updated: [...] U/L EGFR 58 (L) >60 mL/min/1.73m2 Lipase [[id number]] Collected: 01/18/141928 Order Status: Completed Updated: 01/18/142042 Specimen Information: Blood LIPASE 127 73 - 393 U/L Troponin I, Lab [[id number]] Collected: 01/18/141928 Order Status: Completed Updated: 01/18/142042 Specimen Information: Blood TROPONIN I <0.020 0.00 - 0.10 ng/mL Lactic acid [[id number]] Collected: 01/18/141928 Order Status: Completed Updated: 01/18/142042 Specimen Information: Blood LACTIC ACID 1.1 0.4 - 2.0 mmol/L CBC with differential [[id number]] (Abnormal) Collected: 01/18/141928 Order Status: Completed Updated: [...] Jan 18 2014 11:37PM Referring Provider Line: [phone] ID: [id number] Narrative: EXAM: CT ANGIOGRAM CHEST [...] in 2 days For recheck [address] [facility] [address] [facility] Emergency Department If symptoms worsen [address] [facility] [address] Discharge Medications: Discharge Medication List as of [...] | | 2019 | Visit | | HANDS PARTER [address] | | | | | | [address] [place], | | | | | | [place] [address] | | | | | | [phone] | | | | | | | | +--------+---------+ + + + | 09/29/ | Office | Urology | Mireya Pack, | | | 2019 | Visit | | HANDS PARTER [address] | | | | | | [address] [place], | | | | | | [place] [address] | | | | | | [phone] | | | | | | | | | | | | Toy Wild W, DO | | | | | | [address] [facility] | | | | | | [place] [address] | | | | | | [phone] | | | | | | | [...] 11:37PM Referring Provider Line: | | | [phone] ID: [id number] | | + + + [...] | + + | Joaquin Ramos - 09/21/2018 3:31 PM PDT EXAM:CT ANGIOGRAM [...] | | 2013 11:37PM Referring Provider Line: [phone] ID: [id number] | | | |Lungs/Pleura: No [...] Jan 18 2014 11:37PM Referring Provider Line: [phone] ID: [id number] | + + VENOUS DPLX [...] | + + | Joaquin Ramos - 09/21/2018 3:31 PM PDT HISTORY:Leg pain [...] | | | | | | Breanna Jenkins;[place] | | | | | | [address] | | | | + + + [...] performed at [facility] | | | | | | [facility];[place], [place] | | | | | | [address] | | | | + + + [...] [place] | | | | | | [address] | | | | + + + + + + | Non- | 4.69Comment: Testing | 4.20 - 5.70 | EXTERNAL | | | Red Blood | performed at [facility];888 | M/uL | LAB | | | Cells | [address];[place] | | | | | Counted | [address] | | | | + + + + + + | Hemoglobin | 12.4 (L)Comment: Testing | 13.2 - 17.0 | EXTERNAL | | | | performed at [facility];888 | g/dL | LAB | | | | [address];[place] | | | | | | [address] | | | | + + + + + + | Hematocrit, | 37.6 (L)Comment: Testing | 39.0 - 50.0 % | EXTERNAL | | | POC | performed at [facility];888 | | LAB | | | | [address];[place] | | | | | | [address] | | | | + + + + + + | MCV | 80.3Comment: Testing | 80.0 - 100.0 fl | EXTERNAL | | | | performed at [facility];888 | | LAB | | | | [address];[place] | | | | | | [address] | | | | + + + + + + | MCH | 26.5 (L)Comment: Testing | 27.0 - 34.0 pg | EXTERNAL | | | | performed at [facility];[address] | | LAB | | | | [address];[place] | | | | | | [address] | | | | + + + + + + | MCHC | 33.0Comment: Testing | 32.0 - 35.5 | EXTERNAL | | | | performed at [facility];888 | g/dL | LAB | | | | [address];[place] | | | | | | [address] | | | | + + + + + + | RDW-CV | 42.4Comment: Testing | 37 - 53 fl | EXTERNAL | | | | performed at [facility];[address] | | LAB | | | | [address];[place] | | | | | | [address] | | | | + + + + + + | Platelet | 243Comment: Testing | 150 - 400 K/uL | EXTERNAL | | | Count | performed at [facility];888 | | LAB | | | Plasma | [address];[place] | | | | | | [address] | | | | + + + + + + | MPV | 8.0Comment: Testing | fl | EXTERNAL | | | | performed at [facility];[address] | | LAB | | | | [address];[place] | | | | | | [address] | | | | + + + + + + | Differentia | AUTOMATEDComment: | | EXTERNAL | | | l Type | Testing performed at | | LAB | | | | [facility];[address] | | [address];[place] [address] | | | | + + + + + + | % Segmented | 68.3Comment: Testing | % | EXTERNAL | | | | performed at [facility];[address] | | LAB | | | Neutrophils | [address];[place] | | | | | | [address] | | | | + + + + + + | % | 21.1Comment: Testing | % | EXTERNAL | | | Lymphocytes | performed at [facility];[address] | | LAB | | | | [address];[place] | | | | | | [address] | | | | + + + + + + | % Monocytes | 8.6Comment: Testing | % | EXTERNAL | | | | performed at [facility];[address] | | LAB | | | | [address];[place] | | | | | | [address] | | | | + + + + + + | % | 1.4Comment: Testing | % | EXTERNAL | | | Eosinophils | performed at [facility];[address] | | LAB | | | | [address];[place] | | | | | | [address] | | | | + + + + + + | % Basophils | 0.6Comment: Testing | % | EXTERNAL | | | | performed at [facility];[address] | | LAB | | | | [address];[place] | | | | | | [address] | | | | + + + + + + | Absolute | 6.6Comment: Testing | 1.9 - 7.4 K/uL | EXTERNAL | | | Segmented | performed at [facility];888 | | LAB | | | Neutrophils | [address];[place] | | | | | | [address] | | | | + + + + + + | Absolute | 2.1Comment: Testing | 1.0 - 3.9 K/uL | EXTERNAL | | | Lymphocytes | performed at [facility];[address] | | LAB | | | | [address];[place] | | | | | | [address] | | | | + + + + + + | Absolute | 0.8Comment: Testing | 0 - 0.8 K/uL | EXTERNAL | | | Monocytes | performed at [facility];[address] | | LAB | | | | [address];[place] | | | | | | [address] | | | | + + + + + + | Absolute | 0.1Comment: Testing | 0 - 0.5 K/uL | EXTERNAL | | | Eosinophils | performed at [facility];[address] | | LAB | | | | [address];[place] | | | | | | [address] | | | | + + + + + + | Absolute | 0.1Comment: Testing | 0 - 0.1 K/uL | EXTERNAL | | | Basophils | performed at [facility];[address] | | LAB | | | | [address];[place] | | | | | | [address] | | | | + + + [...] | LAB | | | | [address];[place] | | | | | | [address] | | | | + + + [...] | LAB | | | | [address];[place], [place] | | | | | | [address] | | | | + + + [...] [place] | | | | | | [address] | | | | + + + + + + | K | 4.3Comment: Testing | 3.5 - 4.9 | EXTERNAL | | | | performed at [facility];888 | mmol/L | LAB | | | | [address];[place] | | | | | | [address] | | | | + + + + + + | Cl | 104Comment: Testing | 99 - 109 mmol/L | EXTERNAL | | | | performed at [facility];[address] | | LAB | | | | [address];[place] | | | | | | [address] | | | | + + + + + + | CO2 | 29Comment: Testing | 23 - 32 mmol/L | EXTERNAL | | | | performed at [facility];[address] | | LAB | | | | [address];[place] | | | | | | [address] | | | | + + + + + + | Anion Gap | 11Comment: Testing | 5 - 20 mmol/L | EXTERNAL | | | | performed at [facility];[address] | | LAB | | | | [address];[place] | | | | | | [address] | | | | + + + + + + | Glucose, | 215 (H)Comment: Testing | 65 - 99 mg/dL | EXTERNAL | | | Fasting | performed at [facility];[address] | | LAB | | | | [address];[place] | | | | | | [address] | | | | + + + + + + | BUN | 18Comment: Testing | 8 - 25 mg/dL | EXTERNAL | | | | performed at [facility];[address] | | LAB | | | | [address];[place] | | | | | | [address] | | | | + + + + + + | Creatinine | 1.34 (H)Comment: Testing | 0.70 - 1.30 | EXTERNAL | | | | performed at [facility];888 | mg/dL | LAB | | | | [address];[place] | | | | | | [address] | | | | + + + + + + | BUN/Creatin | 14Comment: Testing | | EXTERNAL | | | ine Ratio | performed at [facility];[address] | | LAB | | | | [address];[place] | | | | | | [address] | | | | + + + + + + | Calcium | 8.9Comment: Testing | 8.5 - 10.2 | EXTERNAL | | | | performed at [facility];888 | mg/dL | LAB | | | | [address];[place] | | | | | | [address] | | | | + + + + + + | Protein, | 7.3Comment: Testing | 6.3 - 8.2 g/dL | EXTERNAL | | | Total | performed at [facility];[address] | | LAB | | | | [address];[place] | | | | | | [address] | | | | + + + + + + | Albumin | 3.4 (L)Comment: Testing | 3.6 - 5.0 g/dL | EXTERNAL | | | | performed at [facility];[address] | | LAB | | | | [address];[place] | | | | | | [address] | | | | + + + + + + | Globulin | 3.9Comment: Testing | 1.3 - 4.9 g/dL | EXTERNAL | | | | performed at [facility];[address] | | LAB | | | | [address];[place] | | | | | | [address] | | | | + + + + + + | A/G Ratio | 0.9 (L)Comment: Testing | 1.0 - 2.4 | EXTERNAL | | | | performed at [facility];[address] | | LAB | | | | [address];[place] | | | | | | [address] | | | | + + + + + + | Bilirubin | 0.1Comment: Testing | 0.1 - 1.5 mg/dL | EXTERNAL | | | Total | performed at [facility];[address] | | LAB | | | | [address];[place] | | | | | | [address] | | | | + + + + + + | ALP, | 86Comment: Testing | 35 - 115 U/L | EXTERNAL | | | External | performed at [facility];[address] | | LAB | | | | [address];[place] | | | | | | [address] | | | | + + + + + + | AST | 20Comment: Testing | 10 - 45 U/L | EXTERNAL | | | | performed at [facility];888 | | LAB | | | | [address];[place] | | | | | | [address] | | | | + + + + + + | ALT | 27Comment: Testing | 10 - 65 U/L | EXTERNAL | | | | performed at [facility];[address] | | LAB | | | | [address];[place] | | | | | | [address] | | | | + + + [...] | | | | | Blvd;[place] [address] | | | | + + + [...] | | | | | ONLY, -COMPUTER (915), | | | | | | material expeditor Leanna Cheng | | | | | | (29) on 01/19/2014 | | | | | | 6:28:22 AM | | | | + + + + + + + + | Specimen | + + | | + + + + + | Narrative | Performed At | + + + | Historically converted procedure from [facility] Epic environment | EXTERNAL LAB [...]
--- OUTSIDE RECORDS SUMMARY | ~2019-09-09 | XMS | Encounter Summary ---
Demographics + + + | Address | [address] | | | [place] [address] | + + + | Home Phone [...] + | Sammi Kohler | ECON | [place] [address] | | + + + + + Care Team Providers + +------+ + | Care Video Game Technician Name | Role | Phone | [...] | | | EMERGENCY [facility] | JUSTINE MAHER | injury, initial | | | | [address] | [place], [place] | encounter; | | | | [facility] [place] | [address] | Laceration of head, | | | | [address] | [phone] | initial encounter; | | | | [phone] | | Headache(784.0) | +--------+ + + [...] 03/07/142212 Date of Service: 03/07/142211 Status: Signed Tissue Packer: Mel Gasca RN (Registered Nurse) [facility] called for a ride home for the PT. Will be here within the hour. Mel Gasca RN 03/07/142212 onver ivana Transaction, Provider Unknown - 03/07/2014 9:39 PM PST ED Notes by Jane Lagos at 03/07/142138 Author: Jane Lagos Service: (none) Author Type: Technologist Filed: 03/07/142138 Date of Service: 03/07/142138 Status: Signed Tissue Packer: Jane Lagos (Technologist) Pt back to room from CT scan via w/c. Jane Lagos 03/07/142138 renti Yo hewitt PA-C - 03/07/2014 9:31 PM PST ED Provider Notes by Yo Nunez PA-C at 03/07/142130 Author: Yo Nunez PA-C Service: (none) Author Type: Physician Qa Automation Engineer - Cer tified Filed: 03/08/140 Date of Service: 03/07/142130 Status: Attested Tissue Packer: Yo Nunez PA-C (Physician Qa Automation Engineer - Certified) Cosigner: Reynaldo díaz DO at 03/08/14110 Procedure Orders: 1. Laceration repair [[id number]] ordered by Yo Nunez PA-C at 03/07/142218 2. Laceration repair [[id number]] ordered by Yo Nunez PA-C at 03/07/142214 [...] the procedure well with no immediate complications [facility] Department of Emergency Medicine HPI History [...] - CHOLECYSTECTOMY; Surgeon: Jevon Varags DO; Location: [facility]; Service: General; Laterality: N/A; Abdominal surgery Cholecystectomy Skin cancer excision 10/10/2012 Procedure: EXCISION - SKIN CANCER; Surgeon: Sy Fierro MD; Location: [facility] ; Service: Plastics; Laterality: Left; upper arm and upper back w/frozen section Esophagogastroduodenoscopy 03/03/2013 Procedure: ESOPHAGOGASTRODUODENOSCOPY; Surgeon: Howie Gibson MD; Location: [facility]; S ervice: Gastroenterology; Laterality: N/A; Colonoscopy 03/04/2013 Procedure: COLONOSCOPY; Surgeon: Howie Gibson MD; Location: [facility]; Service: Gastroe nterology; Laterality: N/A; Upper gastrointestinal endoscopy Skin biopsy Hernia repair 07/03/2013 Procedure: LAPAROSCOPIC - HERNIA - INCISIONAL; Surgeon: Jevon Vargas DO; Location: [facility]; Service: General; Laterality: N/A; Prior to Admission medications Medication Sig Start Date End Date Taking? Authorizing Provider Albuterol Sulfate (VENTOLIN HFA IN) Inhale 2 puffs into the lungs as needed. 108 mcg/act Historical Provider Ipfpu-E-Esmucmmhhcsjm (BEANO) TABS Take 150 Units by mouth [...] daily. 180 mg at hs 11/30/13 11/30/14 [facility] carlyn Mae MD docusate sodium [...] 100 mg by mouth nightly. Historical Provider kbszimelg-bbfzqlxp-wpzzsajmr hydroxide-simethicone Take 40 mLs by mouth daily [...] Test, a normal Cerebellar Exam, a normal Bvfalw-Swvr-Sbvgfq Test and a normal Heel to Robertson [...] Intoxication Result: Nexus C-spine rule negative Adapted Wayne Criteria for Head CT Inclusion: GCS = [...] week For follow up, For suture removal [address] [facility] [address] [facility] Emergency Department in [place] In 1 week For suture removal [address] [facility] [address] Discharge Medications: Discharge Medication List as of [...] | 2019 | Visit | | SUPERVISOR SOLDERING [address] | | | | | | [address], | | | | | | [place] [address] | | | | | | [phone] | | | | | | | | +--------+---------+ + + + | 09/29/ | Office | Urology | Mireya Pack, | | 2019 | Visit | | SUPERVISOR SOLDERING [address] | | | | | | [address] [place], | | | | | | [place] [address] | | | | | | [phone] | | | | | | | | | | | | Toy Wild W, DO | | | | | | [address] | | | | | | [place] [address] | | | | | | [phone] | | | | | | | [...]
--- OUTSIDE RECORDS SUMMARY | ~2019-09-09 | XMS | Encounter Summary ---
Demographics + + + | Address | [address] | | | [place] [address] | + + + | Home Phone | | + + + | Preferred Language | Unknown | + + + | Marital Status | | + + + | Amish Affiliation | 1027 | + + + | Race | Unknown | + + + | Ethnic Group | Unknown | + + + Author + + + | Author | [facility] | | | and [place] | + + + | Organization | [facility] | | | and [place] | + + + | Address | Unknown | + + + | Phone | Unavailable | + + + Support + + + + + | Name | Relationship | Address | Phone | + + + + + | Sammi Kohler | ECON | [place] [address] | | + + + + + Care Team Providers + +------+ + | Care Paratransit Driver Name | Role | Phone | + +------+ + PCP | Unavailable | + +------+ + Encounter Details +--------+ + + + + | Date | Type | Department | Care Team | Description | +--------+ + + + + | 05/29/ | Hospital | [facility] | Conversion | | | 2015 | Encounter | [facility] | Transaction, | | | | | [address] | Provider Unknown | | | | | [place], [place] | [phone] | | | | | [address] | | | | | | [phone] | | | +--------+ + + + [...] | | 2019 | Visit | | DIET ATTENDANT [address] | | | | | | [address] [place], | | | | | | [place] [address] | | | | | | [phone] | | | | | | | | +--------+---------+ + + + | 09/29/ | Office | Urology | Mireya Pack, | | | 2019 | Visit | | DIET ATTENDANT [address] | | | | | | [address] [place], | | | | | | [place] [address] | | | | | | [phone] | | | | | | | | | | | | Toy Wild, | | | | | | [address] | | | | | | [place] [address] | | | | | | [phone] | | | | | | | | +--------+---------+ + + + documented as of this encounter Visit Diagnoses Not on filedocumented in this encounter"
--- OUTSIDE RECORDS SUMMARY | ~2019-09-09 | XMS | Encounter Summary ---
Demographics + + + | Address | [address] | | | [place] [address] | + + + | Home Phone [...] + | Sammi Kohler | ECON | [place] [address] | | + + + + + Care Team Providers + +------+ + | Care Multicultural Manager Name | Role | Phone | + +------+ + PCP | Unavailable | + +------+ + Encounter Details +--------+ + + + + | Date | Type | Department | Care Team | Description | +--------+ + + + + | 09/22/ | Hospital | [facility] | Oleg Box MD | Chest pain; Diabetes | | 2012 - | Encounter | MEDICAL CENTER | [address] | mellitus type II; | | | | CLINICAL DECISION | [place] [address] | HTN (hypertension); | | 09/23/ | | [address] | [phone] | Atrial fibrillation | | 2012 | | [place], [place] | | (HCC); Other chest | | | | [address] | | pain | | | | [phone] | | | +--------+ + + + [...] Service: (none) Author Type: Physician Filed: 09/24/11 114 Date of Service: 09/24/11 1140 Status: Signed Process Equipment Operator: Erasto Bautista DO (Physician) [facility] Service: Hospitalist Discharge Summary Date of Admission: [...] CP. He had normal stress test in [facility]. HOSPITAL COURSE: Admitted to observation in [...] Date of Service: 09/24/11 1200 Status: Signed Process Equipment Operator: Nadeen Echavarria RN (Registered Nurse) Pt to [...] Date of Service: 09/24/11 1010 Status: Signed Process Equipment Operator: Nadeen Echavarria RN (Registered Nurse) Dr Bautista says to leave iv out for now. onver ivana Transaction, Provider Unknown - 09/24/2011 9:58 AM PDT Progress Notes by Nadeen Echavarria RN at 09/24/11 0958 Author: Nadeen Echavarria RN Service: (none) Author Type: Registered Nurse Filed: 09/24/11 0958 Date of Service: 09/24/11 0958 Status: Signed Process Equipment Operator: Nadeen Echavarria RN (Registered Nurse) [facility]. onver ivana Transaction, Provider Unknown - 09/24/2011 6:54 AM PDT Partial Note by Ida Akins at 09/24/11 0654 Author: Ida Akins Service: Cardiology Author Type: can dragger Filed: 09/24/11 0655 Date of Service: 09/24/11 0654 Status: Signed Process Equipment Operator: Ida Akins (can dragger) EKG completed at 01:05. Could not complete order in Epic. onver ivana Transaction, Provider Unknown - 09/24/2011 3:48 AM PDT Progress Notes by Pepe Xie RPH at 09/24/11347 Author: Pepe Xie RPH Service: (none) Author Type: Pharmacist Filed: 09/24/11347 Date of Service: 09/24/11347 Status: Signed Process Equipment Operator: Pepe Xie RPH (Pharmacist) Note scr 1.4 ccl unavailable Pharmacy will review meds when possible rdc 0347 docume nted in this encounter H&P Notes Oleg Box MD - 09/24/2011 12:59 AM PDT H&P by Oleg Box MD at 09/24/1158 Author: Oleg Box MD Service: Hospitalist Author Type: Physician Filed: 09/24/116 Date of Service: 09/24/1158 Status: Signed Process Equipment Operator: Oleg Box MD (Physician) [facility] Service: Hospitalist Admission History & Physical Pt: Norah Gr AGE/SEX: 55 y.o. male ROOM: [facility]1121-1 PCP: EDIN GUTIÉRREZ DO, : 1955 TODAY'S [...] APTT 28 INR 0.9 PTT -- Lab 09/23/11 2012 CKTOTAL 91 TROPONINI -- TROPONINT -- CKMBINDEX [...] FACP 09/24/2011 12:59 AM documented in this [facility] ED Notes Antonella Kendrick - 09/23/2011 9:48 PM PDTFormatting of this note might be different fro m the original. ED Provider Notes by Antonella Kendrick PA-C at 09/23/112147 Author: Antonella Kendrick PA-C Service: (none) Author Type: Physician Interventional Radiology Rn - Cer tified Filed: 09/23/112227 Date of Service: 09/23/112147 Status: Signed Process Equipment Operator: Antonella Kendrick PA-C (Physician Interventional Radiology Rn - Certified) Related Notes: Cosigned by Kristian Mae MD (Physician) filed at 09/24/11 1648 Procedures [facility] Department of Emergency Medicine History of Present Illness Patient Identification Norah Gr is a 55 y.o. male. Patient information was obtained from patient. History/Exam limitations: none. Patient presented to the Emergency Department by: [facility] A411 Chief Complaint Chief Complaint [...] at the age of 58 of an RI. He received one aspirin and NL spray [...] troponin. Patient will be placed on the classroom monitor to ensure no life thre atening [...] Component Value Ref Range Date/Time Cardiac Panel [[id number]] (Abnormal) Collected:09/23/112011 Order Status:Completed Updated:09/23/112044 WBC 13.0 [...] ng/mL CK-MB Index 1.4 POC cardiac troponin [[id number]] Collected:09/23/112016 Order Status:Completed Updated:09/23/112031 POC CARDIAC TROPONIN [...] chest. Interpretation Rhythm: Sinus Ventricular Rate: 90 VA Interval: Normal ST Segments: Prolonged QT. No ST elevation or depression Significant Q-waves: None Blocks: None ED Diagnosis Final diagnosis Chest pain Disposition: ED Disposition Admit/Observation Bed request special needs: None Diagnosis?: Chest pain Antonella Kendrick PA-C 09/23/112227 Kristian Mae MD 09/24/111647 aukKristian bonilla MD - 09/23/2011 9:48 PM PDTFormatting of this note might be different from the origi nal. ED Provider Notes by Kristian Mae MD at 09/23/112147 Author: Kristian Mae MD Service: (none) Author Type: Physician Filed: 09/24/111647 Date of Service: 09/23/112147 Status: Signed Process Equipment Operator: Kristian Mae MD (Physician) Related Notes: Related Note by Antonella Kendrick PA-C (Physician Interventional Radiology Rn - Certified) filed at 09/23/112227 I have [...] 09/23/112011 Date of Service: 09/23/112009 Status: Signed Process Equipment Operator: Suresh Marin RN (Registered Nurse) Pt Here [...] | | 2019 | Visit | | COTTON GRADER [address] | | | | | | [address] [place], | | | | | | [place] [address] | | | | | | [phone] | | | | | | | | +--------+---------+ + + + | 09/29/ | Office | Urology | Mireya Pack, | | | 2020 | Visit | | COTTON GRADER [address] | | | | | | [address] [place], | | | | | | [place] [address] | | | | | | [phone] | | | | | | | | | | | | Toy Wild W, DO | | | | | | [address] | | | | | | [place] [address] | | | | | | [phone] | | | | | | | [...]
--- OUTSIDE RECORDS SUMMARY | ~2019-09-09 | XMS | Encounter Summary ---
Demographics + + + | Address | [address] | | | [place] [address] | + + + | Home Phone [...] + | Sammi Kohler | ECON | [place] [address] | | + + + + + Care Team Providers + +------+ + | Care Network Support Analyst Name | Role | Phone | + +------+ + PCP | Unavailable | + +------+ + Encounter Details +--------+ + + + + | Date | Type | Department | Care Team | Description | +--------+ + + + + | 06/10/ | Emergency | [facility] | Ger Llamas, | | | 2013 | | MEDICAL CENTER | MD [address] | | | | | EMERGENCY CENTER | [place] [address] | | | | | [address] | [phone] | | | | | [place], [place] | | | | | | [address] | | | | | | [phone] | | | +--------+ + + + [...] ED Notes by Tatum Pratt RN at 06/10/13 105 Author: Tatum Pratt RN Service: (none) Author Type: Registered Nurse Filed: 06/10/131049 Date of Service: 06/10/131049 Status: Signed Machine Tool Dresser: Tatum Pratt RN (Registered Nurse) hernia Tatum Pratt RN 06/10/131049 docume nted in this encounter Plan of Treatment +--------+---------+ + + + | Date | Type | Specialty | Care Team | Description | +--------+---------+ + + + | 09/10/ | Office | Geriatric Medicine | Mireya Pack, | | 2019 | Visit | | PLANT UTILITY PERSON [address] | | | | | | [address] [place], | | | | | | [place] [address] | | | | | | [phone] | | | | | | | | +--------+---------+ + + + | 09/29/ | Office | Urology | Mireya Pack, | | | 2020 | Visit | | PLANT UTILITY PERSON [address] | | | | | | [address] [place], | | | | | | [place] [address] | | | | | | [phone] | | | | | | | | | | | | Toy Wild W, DO | | | | | | [address] | | | | | | [place] [address] | | | | | | [phone] | | | | | | | | +--------+---------+ + + + documented as of this encounter Visit Diagnoses Not on filedocumented in this encounter"
--- OUTSIDE RECORDS SUMMARY | ~2019-09-09 | XMS | Encounter Summary ---
Demographics + + + | Address | [address] | | | [place] [address] | + + + | Home Phone | | + + + | Preferred Language | Unknown | + + + | Marital Status | | + + + | Congregational Affiliation | 1027 | + + + [...] Sammi Kohler | ECON | [place] [address] | | + + + + + Care Team Providers + +------+ + | Care Medical Biller Coder Name | Role | Phone | + +------+ + | Mireya Pack NP | PCP | | + +------+ + Encounter Details +--------+ + + + + | Date | Type | Department | Care Team | Description | +--------+ + + + + | 05/19/ | Skilled | [facility] | Mireya Pack, | Abnormality of gait | | 2020 | Nursing | [facility] [address] | NURSING HOME DIRECTOR [address] | due to impairment of | | | Facility [address] | [address] [place], | balance (Primary | | | | [place], [place] | [place] [address] | Dx); Dizziness; | | | | [address] | [phone] | Essential | | | | [phone] | | hypertension; | | | | | | Uncontrolled type 2 | | | | | | diabetes mellitus | | | | | | with hyperglycemia | | | | | | ([facility]) | +--------+ + + + + Social [...] of this encounter Progress Notes Myriam Gary, Gear Lapping Machine Operator - 05/20/2019 9:15 AM PDTPrinted for [facility] nursing staff. Mireya Riley do, NP - [...] is a 63 y.o. male Resident of [facility] with a qualifying stay at [facility] from to 05-17-2019, presented with fall. Admitted for fall from ground level. Patient t o continue on Eliquis, unless hematoma expands. He is to continue on Coreg and Apixiban for a-fib. Discharged to SNF for PT/OT, medication management and senior care. Past Medical History: Diagnosis Date Acute pulmonary [...] - CHOLECYSTECTOMY; Surgeon: Jevon Vargas DO; Location: [facility] MAIN OR; Service: General; Laterality: N/A; COLONOSCOPY COLONOSCOPY 03/04/2013 Procedure: COLONOSCOPY; Surgeon: Howie Gibson MD; Location: [facility] ENDOSCOPY; Service: Gastroen terology; Laterality: N/A; HERNIA REPAIR 07/03/2013 Procedure: LAPAROSCOPIC - HERNIA - INCISIONAL; Surgeon: Jevon aVrgas DO; Location: [facility] MAIN OR; Service: General; Laterality: N/A; KNEE SURGERY rt knee, patella LEG SURGERY LLE OTHER SURGICAL HISTORY UNLISTED PROCEDURE ARTHROSCOPY OTHER SURGICAL HISTORY Left 05/05/2014 SKIN LESION EXCISION - Procedure: EXCISION - LESION - FROZEN SECTION; Surgeon: Sy murcia MD; Location: [facility] MAIN OR; Service: Plastics; Laterality: Left; forearm SKIN BIOPSY SKIN CANCER EXCISION Left 10/10/2012 Procedure: EXCISION - SKIN CANCER; Surgeon: Sy Fierro MD; Location: [facility] MAIN OR; Service: Plastics; Laterality: Left; upper arm and upper back w/frozen section UPPER GASTROINTESTINAL ENDOSCOPY UPPER GASTROINTESTINAL ENDOSCOPY 03/03/2013 Procedure: ESOPHAGOGASTRODUODENOSCOPY; Surgeon: Howie Gibson MD; Location: [facility] ENDOSCOPY; Se rvice: Gastroenterology; Laterality: [...] PLT 207 05/18/2019 No results found for: [id number] No results found for: FOLATE No results [...] found for: CHOLHDL No components found for: [id number], PTHINT No results found for: DIGOXIN No [...] | | 2019 | Visit | | NURSING HOME DIRECTOR [address] | | | | | | [address] [place], | | | | | | [place] [address] | | | | | | [phone] | | | | | | | | +--------+---------+ + + + | 09/29/ | Office | Urology | Mireya Pack, | | | 2019 | Visit | | NURSING HOME DIRECTOR [address] | | | | | | [address] [place], | | | | | | [place] [address] | | | | | | [phone] | | | | | | | | | | | | Toy Wild W, DO | | | | | | [address] | | | | | | [place] [address] | | | | | | [phone] | | | | | | | [...]
--- OUTSIDE RECORDS SUMMARY | ~2019-09-09 | XMS | Encounter Summary ---
Demographics + + + | Address | [address] | | | [place] [address] | + + + | Home Phone [...] Samim Kohler | ECON | [place] [address] | | + + + + + Care Team Providers + +------+ + | Care Broadcast Maintenance Engineer Name | Role | Phone | + +------+ + | Mireya Pack NP | PCP | | + +------+ + Reason for Visit + +--------+ + | Reason | Onset | Comments | | | Date | | + +--------+ + | TCM - Hosp FU | 12/14/ | | | | 2019 | | + +--------+ + Encounter Details +--------+ + + + + | Date | Type | Department | Care Team | Description | +--------+ + + + + | 12/14/ | Telephone | [facility] | Sanjuanita Rodriguez RN | TCM - Hosp FU | | 2019 | | SALON RECEPTIONIST | | | | | | MANAG[address] | | | | | | [address] | | | | | | [place] | | | | | | [address] | | | | | | [phone] | | | +--------+ + + + [...] Telephone Encounter - Sanjuanita Rodriguez RN - 12/14/2018 11:39 AM PSTFormatting of this note m ight be different from the original. SITUATION Transitional Care Management for follow-up on discharge from: Inpatient Acute Hospital Eligible for TCM Billing LOS 11931/85127? yes - Eligible for TCM billing through 9 Patient questions/concerns needing provider review: None at this time. BACKGROUND Admission Date: 12/13/18 Discharge Date: 12/13/18 Discharge Disposition: Home or Self Care Principle Discharge Diagnosis: Other chest pain Active Problems: Diabetes mellitus, type 2 Paroxysmal atrial fibrillation Hyperlipidemia Chronic back pain Syncope WARD (obstructive sleep apnea) COPD (chronic obstructive pulmonary disease) Anxiety Depression Hypertension Resolved Problems: * No resolved hospital problems. * ASSESSMENT General: How are you doing since you returned home?: Patient states, "It is the same, chest pain sti ll, it is hard to breath sometimes" Did you receive discharge instructions? yes Do you have any questions about the instructions? no Does patient have advanced directive? No, Referral to ACP Patient Reported Review of Symptoms: (documentation by exception) chest pain/pressure/cardi ac symptoms and shortness of breath/dyspnea on exertion Patient states that pain is unchange d from discharge and prior to going occupational therapy hospital. On discharge it was belie ariella to be non cardiac in nature and most likely musculoskeletal in nature. Patient has not tried acetaminophen and I have let him know he is able to take this every 4 hours as needed for pain. Also recommended that he might try heat or ice to the area or that he is able to a lternate them, leaving on for no more than 20 minutes of every hour. Diet: Diet restrictions: Diabetic Difficulties managing your dietary restrictions? yes - I just don't want to Medication Literacy: Were you able to pharmacy picking technician your medications after discharge? No: NA Reviewed all medications/supplements and any changes? Yes Do you manage your own medications? Yes [...] Future Appointments Date Time Provider Department Center 2018 11:30 NORM White 12/26/2018 12:30 NORM White Patient wishes to cancel appointment for 12/19 and I have done this as his appointment 12/08 0 falls within the 14 calendar days for TCM. Any other Specialists, Out-patient Therapy or Diagnostics/Labs: NA Patient Education: When to call your healthcare provider Call your healthcare provider right away if you have any of the following: Chest pain or shortness of breath (call 911) Moderate to severe headache Weakness in the muscles of your face, arms, or legs Trouble speaking Extreme drowsiness Confusion Fainting or dizziness Pulsating or rushing sound in your ears Unexplained nosebleed Weakness, tingling, or numbness of your face, arms, or legs Change in vision Blood pressure measured at home that is greater than 180/110 Triage protocol used?: no Call Back Instructions: Will conduct a chart review after follow up appointment with primary care provider to evalu ate for further follow up needs. Provided office contact information, phone [phone] Of [facility] 0730 - 1500. Informant verbalized understanding. No learning barriers noted. documented in this enc ounter Plan of Treatment +--------+---------+ + + + | Date | Type | Specialty | Care Team | Description | +--------+---------+ + + + | 09/10/ | Office | Geriatric Medicine | Mireya Pack, | | | 2019 | Visit | | GAS SCRUBBER OPERATOR [address] | | | | | | [address] [place], | | | | | | [place] [address] | | | | | | [phone] | | | | | | | | +--------+---------+ + + + | 09/29/ | Office | Urology | Mireya Pack, | | | 2019 | Visit | | GAS SCRUBBER OPERATOR [address] | | | | | | [address] [place], | | | | | | [place] [address] | | | | | | [phone] | | | | | | | | | | | | Toy Wild, | | | | | | [address] | | | | | | [place] [address] | | | | | | [phone] | | | | | | | | +--------+---------+ + + + documented as of this encounter Visit Diagnoses Not on filedocumented in this encounter
--- OUTSIDE RECORDS SUMMARY | ~2019-09-09 | XMS | Encounter Summary ---
Demographics + + + | Address | [address] | | | [place] [address] | + + + | Home Phone [...] Sammi Kohler | ECON | [place] [address] | | + + + + + Care Team Providers + +------+ + | Care Clerical Car Checker Name | Role | Phone | [...] + + | 01/07/ | Telephone | [facility] | Mireya Pack, | Hospital Follow-up | | 2019 | | [facility] [address] | PREP MANAGER [address] | | | | | [address] | [address] [place], | | | | | [place], [place] | [place] [address] | | | | | [address] | [phone] | | | | | [phone] | | | +--------+ + + + [...] - 01/07/2019 9:49 AM PSTCall [facility] verified that they received the discharge summary from the hospital and that [facility] do not have any questions about it. He requested for his apt next week to be moved this w ho-chunk, apt rescheduled on Monday with PCP. He [...] speak slow. He lives by himself in [facility]. He said that he is requesting for [...] He again stated understanding. elephone Encounter - Moisés Garvin Odris Emre - 01/07/2019 9:19 AM HECTOR hoffman [...] to immediately transfer the call to a p samara proofsheet corrector was caller made aware that if at [...] | | 2019 | Visit | | PREP MANAGER [address] | | | | | | [address] [facility] | | | | | | [place] [address] | | | | | | [phone] | | | | | | | | +--------+---------+ + + + | 09/29/ | Office | Urology | Mireya Pack, | | | 2019 | Visit | | PREP MANAGER [address] | | | | | | [address] [place], | | | | | | [place] [address] | | | | | | [phone] | | | | | | | | | | | | Toy Wild, | | | | | | [address] | | | | | | [place] [address] | | | | | | [phone] | | | | | | | | +--------+---------+ + + + documented as of this encounter Visit Diagnoses Not on filedocumented in this encounter"
--- OUTSIDE RECORDS SUMMARY | ~2019-09-09 | XMS | Encounter Summary ---
Demographics + + + | Address | [address] | | | [place] [address] | + + + | Home Phone [...] + | Sammi Kohler | ECON | [place] [address] | | + + + + + Care Team Providers + +------+ + | Care Remedy Developer Name | Role | Phone | + +------+ + PCP | Unavailable | + +------+ + Encounter Details +--------+ + + + + | Date | Type | Department | Care Team | Description | +--------+ + + + + | 09/28/ | Hospital | [facility] | Conversion | | | 2013 | Encounter | [facility] | Transaction, | | | | | CLINIC [address] | Provider Unknown | | | | | [place] | [phone] | | | | | [address] | | | | | | [phone] | Sy Fierro MD | | | | | | [address] [facility] | | | | | | [place] | | | | | | [address] | | | | | | | [...] 09/28/121858 Date of Service: 09/28/121856 Status: Signed Bog Worker: Yesica Moore RN (Registered Nurse) Patient seen [...] Instructions by Ira Schaeffer RN at 09/28/12 1444 Author: Ira Schaeffer RN Service: (none) Author Type: Registered Nurse Filed: 09/28/12 144 Date of Service: 09/28/121443 Status: Signed Bog Worker: Ira Schaeffer RN (Registered Nurse) Called Dr. Person office Re hgb 8.3 and HCt 25 from 09/21 left message onver ivana Transaction, Provider Unknown - 09/28/2012 12:01 PM PDT Pre-Procedure Instructions by Cherry Chong RN at 09/28/12 120 Author: Cherry Chong RN Service: (none) Author Type: Registered Nurse Filed: 09/28/12 1208 Date of Service: 09/28/12 120 Status: Signed Bog Worker: Cherry Chong RN (Registered Nurse) Pt has a speech impediment and is somewhat KOOTENAI NIDIARN docume nted in this encounter Plan of Treatment +--------+---------+ + + + | Date | Type | Specialty | Care Team | Description | +--------+---------+ + + + | 09/10/ | Office | Geriatric Medicine | Mireya Pack, | | | 2019 | Visit | | RADIOGRAPHER CARDIAC CATHETERIZATION [address] | | | | | | [address] [place], | | | | | | [place] [address] | | | | | | [phone] | | | | | | | | +--------+---------+ + + + | 09/29/ | Office | Urology | Mireya Pack, | | | 2019 | Visit | | RADIOGRAPHER CARDIAC CATHETERIZATION [address] | | | | | | [address] [place], | | | | | | [place] [address] | | | | | | [phone] | | | | | | | | | | | | Toy Wild, | | | | | | [address] | | | | | | [place] [address] | | | | | | [phone] | | | | | | | | +--------+---------+ + + + documented as of this encounter Visit Diagnoses Not on filedocumented in this encounter"
--- OUTSIDE RECORDS SUMMARY | ~2019-09-09 | XMS | Encounter Summary ---
Demographics + + + | Address | [address] | | | [place] [address] | + + + | Home Phone [...] + | Sammi Kohler | ECON | [place] [address] | | + + + + + Care Team Providers + +------+ + | Care Cardiac Rehabilitation Program Director Name | Role | Phone | + +------+ + PCP | Unavailable | + +------+ + Encounter Details +--------+ + + + + | Date | Type | Department | Care Team | Description | +--------+ + + + + | 02/21/ | Emergency | [facility] | Jose Flor, | Hyperglycemia | | 2016 | | [facility] | MD [address] | | | | | EMERGENCY CENTER | [place] [address] | | | | | [address] [facility] [facility] | [phone] | | | | | [place], [place] | | | | | | [address] | | | | | | [phone] | | | +--------+ + + + [...] + + + | Blood Pressure | 145/70 | 02/21/2015 4:35 PM | | | | | PST | | + + + + + | Pulse | 75 | 02/21/2015 4:35 PM | | | | | PST | | + + + + + | Temperature | 36.8 C (98.3 F) | 02/21/2015 4:35 PM | | | | | PST | | + + + + + | Respiratory Rate | 18 | 02/21/2015 4:35 PM | | | | | PST | | + + + + + | Oxygen Saturation | - | - | | + + + + + | Inhaled Oxygen | - | - | | | Concentration | | | | + + + + + | Weight | 100.5 kg (221 lb 9 | 02/21/2015 4:35 PM | | | | oz) | [...] encounter ED Notes Jose Flor MD - 02/21/2015 3:35 PM PSTFormatting of this note might be different fro m the original. ED Provider Notes by Jose Flor MD at 02/21/15 4774 Author: Jose Flor MD Service: (none) Author Type: Physician Filed: 02/21/15 5196 Date of Service: 02/21/151534 Status: Signed Executive Producer Promos: Jose Flor MD (Physician) [facility] Department of Emergency Medicine ED Pre-arrival Provider to Provider 02/07/2015 Pre-arrival Provider Urgent Care Provider Name JULISSA Cruz Pertinent History and Concerns in to urgent care for dizziness and shaking, blood glucose 4 32, hx of diabetes. History of Present Illness Patient Identification Kevyn Guzman is a 59 y.o. male. Patient information was obtained from patient. History/Exam limitations: none. 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 Onset of symptoms was 2 weeks ago, with a constant course since that time. The symptoms are described to be of moderate severity. The patient describes the quality and location of the symptoms as the following: nausea, fatigue. The patient also complains of high blood sugars, 381 today. Care prior to arrival consisted of i ncreasing his insuiln, with no relief. 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 Past Surgical History Procedure Laterality Date Unlisted procedure arthroscopy Knee surgery rt knee, patella Leg surgery LLE Colonoscopy Cholecystectomy, laparoscopic 09/12/2012 Procedure: LAPAROSCOPIC - CHOLECYSTECTOMY; Surgeon: Jevon Vargas DO; Location: [facility]; Service: General; Laterality: N/A; Abdominal surgery Cholecystectomy Skin cancer excision 10/10/2012 Procedure: EXCISION - SKIN CANCER; Surgeon: Sy Fierro MD; Location: [facility] ; Service: Plastics; Laterality: Left; upper arm and upper back w/frozen section Esophagogastroduodenoscopy 03/03/2013 Procedure: ESOPHAGOGASTRODUODENOSCOPY; Surgeon: Howie Gibson MD; Location: [facility]; S ervice: Gastroenterology; Laterality: N/A; Colonoscopy 03/04/2013 Procedure: COLONOSCOPY; Surgeon: Howie Gibson MD; Location: [facility]; Service: Gastroe nterology; Laterality: N/A; Upper gastrointestinal endoscopy Skin biopsy Hernia repair 07/03/2013 Procedure: LAPAROSCOPIC - HERNIA - INCISIONAL; Surgeon: Jevon Vargas DO; Location: [facility]; Service: General; Laterality: N/A; Skin lesion excision Left 05/05/2014 Procedure: EXCISION - LESION - FROZEN SECTION; Surgeon: Sy Fierro MD; Location: [facility]; Service: Plastics; Laterality: Left; forearm Prior to Admission medications Medication Sig Start Date End Date Taking? Authorizing Provider Albuterol Sulfate (VENTOLIN HFA IN) Inhale 2 puffs into the lungs as needed. 108 mcg/act Historical Provider Nsxhp-Y-Wmcglscthywgj (BEANO) TABS Take 150 Units by mouth [...] 100 mg by mouth nightly. Historical Provider ndwmtjlsc-fyeseafy-lukyqbyvn hydroxide-simethicone Take 40 mLs by mouth daily [...] of Systems Constitutional: Negative for: fever, chills, sweats or weight loss Eyes: Negative for: [...] reviewed and otherwise negative Physical Exam BP 143/67 mmHg | Pulse 94 | Temp(Src) 98.3 F (36.8 C) (Temporal) | Resp 20 | Wt 100.5 k g (221 lb 9 oz) | SpO2 96% Vital signs reviewed and normal Pulse Oximetry interpretation: Normal General: Alert, [...] No motor deficit No sensory deficit No confusion Medical Decision Making and Emergency Department Course Patient with hyperglycemia, differential diagnosis included metabolic abnormality, electrol yte abnormalities, DKA, acidosis, dehydration, etc. willcheck labs and give IV fluids, insu edward if indicated. ED Department Course Mild hyperglycemia here, he received IV fluids, refused insulin, said he would go home and do it. Labs benign, no DKA or other complications. The patient will follow up with their d octor for further outpatient treatment as indicated. Agrees to return to the ED if symptoms worsen or if any other concerns. Records Reviewed Old medical records. Laboratory Evaluation Labs Reviewed CBC W/AUTO DIFF (REFLEX TO MANUAL) - Abnormal; Notable for the following: WBC 12.66 (*) HGB 12.1 (*) HCT 38.4 (*) MCV 74.4 (*) MCH 23.4 (*) MCHC 31.5 (*) NEUTROPHILS ABS 9.24 (*) MONOCYTES ABS 0.99 (*) All other components within normal limits COMPREHENSIVE METABOLIC PANEL - Abnormal; Notable for the following: GLUCOSE 305 (*) CREATININE 1.4 (*) CALCIUM 8.3 (*) Albumin 3.1 (*) A/G 0.7 (*) ALK PHOS 141 (*) EGFR 55 (*) All other components within normal limits POCT GLUCOSE - Abnormal; Notable for the following: GLUCOSE,POC SCREEN 262 (*) All other components within normal limits KETONES, BLOOD Results Procedure Component Value Units Date/Time CBC with differential [[id number]] (Abnormal) Collected: 02/21/151556 Specimen Information: Blood Updated: 02/21/15 1633 WBC 12.66 (H) K/uL RBC 5.16 M/uL HGB 12.1 (L) g/dL HCT 38.4 (L) % MCV 74.4 (L) fl MCH 23.4 (L) pg MCHC 31.5 (L) g/dL RDW SD 42.9 fl PLT 306 K/uL MPV 7.8 fl DIFF TYPE AUTOMATED NEUTROPHILS 72.94 % LYMPHOCYTES 17.70 % MONOCYTES 7.80 % EOSINOPHILS 1.11 % BASOPHILS 0.45 % NEUTROPHILS ABS 9.24 (H) K/uL LYMPHOCYTES ABS 2.24 K/uL MONOCYTES ABS 0.99 (H) K/uL EOSINOPHILS ABS 0.14 K/uL BASOPHILS ABS 0.06 K/uL MORPHOLOGY 1+ Comprehensive metabolic panel [[id number]] (Abnormal) Collected: 02/21/151556 Specimen Information: Blood Updated: 02/21/15 1627 SODIUM 136 mmol/L POTASSIUM 4.0 mmol/L CHLORIDE 102 mmol/L CO2 26 mmol/L ANION GAP AGAP 12 mmol/L GLUCOSE 305 (H) mg/dL BUN 20 mg/dL CREATININE 1.4 (H) mg/dL BUN/CREAT 14 CALCIUM 8.3 (L) mg/dL TOTAL PROTEIN 7.3 g/dL Albumin 3.1 (L) g/dL GLOBULIN 4.2 g/dL A/G 0.7 (L) TBIL 0.3 mg/dL ALK PHOS 141 (H) U/L AST 23 U/L ALT 22 U/L EGFR 55 (L) mL/min/1.73m2 Ketones, Serum [[id number]] Collected: 02/21/15 1557 Specimen Information: Blood Updated: 02/21/15 1620 KETONES,SERUM NEGATIVE POCT glucose [[id number]] (Abnormal) Collected: 02/21/15 1559 GLUCOSE,POC SCREEN 262 (H) mg/dL Updated: 02/21/15 1603 Available Labs reviewed and interpreted by me. Radiology Evaluation Imaging Results None Available radiology studies reviewed and interpreted contemporaneously by me. ED Diagnosis Final diagnosis Hyperglycemia Disposition: ED Disposition Discharge Condition at discharge: Stable Follow-up Information Follow up With Details Comments Contact Info Jerrell Gutiérrez, DO [address] [facility] [id number] Discharge Medications: Discharge Medication List as of 02/21/2015 4:32 PM Procedures Additional Documentation Procedures Jose Flor MD 02/21/15 1659 documented in this e ncounter Plan of Treatment +--------+---------+ + + + | Date | Type | Specialty | Care Team | Description | +--------+---------+ + + + | 09/10/ | Office | Geriatric Medicine | Mireya Pack, | | | 2019 | Visit | | [employer] [address] | | | | | | [address] [place], | | | | | | [place] [address] | | | | | | [phone] | | | | | | | | +--------+---------+ + + + | 09/29/ | Office | Urology | Mireya Pack, | | | 2020 | Visit | | [employer] [address] | | | | | | [address] [place], | | | | | | [place] [address] | | | | | | [phone] | | | | | | | | | | | | Toy Wild, DO | | | | | | [address] | | | | | | [place] [address] | | | | | | [phone] | | | | | | | [...] | EXTERNAL LAB: CBC | Routin | 02/21/2015 | | Results for this | | | e | 3:57 PM | | procedure are in the | | | | PST | | results section. | + +--------+ + + + | KETONES, BLOOD | Routin | 02/21/2015 | | Results for this | | | e | 3:57 PM | | procedure are in the | | | | PST | | results section. | + +--------+ + + + | COMPREHENSIVE | Routin | 02/21/2015 | | Results for this | | METABOLIC PANEL | e | 3:57 PM | | procedure are in the | | | | PST | | results section. | + +--------+ + + + documented in this encounter Results POC Glucose (02/21/2015 3:59 PM PST) + + + + + + | Component | Value | Ref Range | Performed | Pathologist | | | | | At | Signature | + + + + + + | Glucose, | 262 (H)Comment: Testing | 65 - 99 mg/dL | EXTERNAL | | | Fingerstick | performed at [facility] | | LAB | | | | [address];[place] | | | | | | [address] | | | | + + + + + + + + | Specimen | + + | | + + + +---------+ + + | Performing | Address | City/State/Zipcode | Phone Number | | Organization | | | | + +---------+ + + | EXTERNAL LAB | | | | + +---------+ + + Ketones, blood (02/21/2015 3:57 PM PST) + + + + + + | Component | Value | Ref Range | Performed | Pathologist | | | | | At | Signature | + + + + + + | Ketones, | NEGATIVEComment: Testing | | EXTERNAL | | | Blood | performed at [facility];[address] | | LAB | | | | [address];[place] | | | | | | [address] | | | | + + + [...] + +---------+ + + External Lab: CBC (02/21/2015 3:57 PM PST) + + + + + + | Component | Value | Ref Range | Performed | Pathologist | | | | | At | Signature | + + + + + + | WBC | 12.66 (H)Comment: | 3.80 - 11.00 | EXTERNAL | | | | Testing performed at | K/uL | LAB | | | | [facility];[address];[place] [address] | | | | + + + + + + | Non- | 5.16Comment: Testing | 4.20 - 5.70 | EXTERNAL | | | Red Blood | performed at [facility];[address] | M/uL | LAB | | | Cells | [address];[place] | | | | | Counted | [id number] | | | | + + + + + + | Hemoglobin | 12.1 (L)Comment: Testing | 13.2 - 17.0 | EXTERNAL | | | | performed at [facility];[address] | g/dL | LAB | | | | [address];[place] | | | | | | [address] | | | | + + + + + + | Hematocrit, | 38.4 (L)Comment: Testing | 39.0 - 50.0 % | EXTERNAL | | | POC | performed at [facility];[address] | | LAB | | | | [address];[place] | | | | | | [address] | | | | + + + + + + | MCV | 74.4 (L)Comment: Testing | 80.0 - 100.0 fl | EXTERNAL | | | | performed at [facility];[address] | | LAB | | | | [address];[place] | | | | | | [address] | | | | + + + + + + | MCH | 23.4 (L)Comment: Testing | 27.0 - 34.0 pg | EXTERNAL | | | | performed at [facility];[address] | | LAB | | | | [address];[place] | | | | | | [address] | | | | + + + + + + | MCHC | 31.5 (L)Comment: Testing | 32.0 - 35.5 | EXTERNAL | | | | performed at [facility];[address] | g/dL | LAB | | | | [address];[place] | | | | | | [address] | | | | + + + + + + | RDW-CV | 42.9Comment: Testing | 37 - 53 fl | EXTERNAL | | | | performed at [facility];[address] | | LAB | | | | [address];[place] | | | | | | [address] | | | | + + + + + + | Platelet | 306Comment: Testing | 150 - 400 K/uL | EXTERNAL | | | Count | performed at [facility];[address] | | LAB | | | Plasma | [address];[place] | | | | | | [address] | | | | + + + + + + | MPV | 7.8Comment: Testing | fl | EXTERNAL | | | | performed at [facility];[address] | | LAB | | | | [address];[place] | | | | | | [address] | | | | + + + + + + | Differentia | AUTOMATEDComment: | | EXTERNAL | | | l Type | Testing performed at | | LAB | | | | [facility];[address];[place] [address] | | | | + + + + + + | % Segmented | 72.94Comment: Testing | % | EXTERNAL | | | | performed at [facility];[address] | | LAB | | | Neutrophils | [address];[place] | | | | | | [address] | | | | + + + + + + | % | 17.70Comment: Testing | % | EXTERNAL | | | Lymphocytes | performed at [facility];[address] | | LAB | | | | [address];[place] | | | | | | [address] | | | | + + + + + + | % Monocytes | 7.80Comment: Testing | % | EXTERNAL | | | | performed at [facility];[address] | | LAB | | | | [address];[place] | | | | | | [address] | | | | + + + + + + | % | 1.11Comment: Testing | % | EXTERNAL | | | Eosinophils | performed at [facility];[address] | | LAB | | | | [address];[place] | | | | | | [address] | | | | + + + + + + | % Basophils | 0.45Comment: Testing | % | EXTERNAL | | | | performed at [facility];[address] | | LAB | | | | [address];[place] | | | | | | [address] | | | | + + + + + + | Absolute | 9.24 (H)Comment: Testing | 1.90 - 7.40 | EXTERNAL | | | Segmented | performed at [facility];[address] | K/uL | LAB | | | Neutrophils | [address];[place] | | | | | | [address] | | | | + + + + + + | Absolute | 2.24Comment: Testing | 1.00 - 3.90 | EXTERNAL | | | Lymphocytes | performed at [facility];[address] | K/uL | LAB | | | | [address];[place] | | | | | | [address] | | | | + + + + + + | Absolute | 0.99 (H)Comment: Testing | 0.00 - 0.80 | EXTERNAL | | | Monocytes | performed at [facility];[address] | K/uL | LAB | | | | [address];[place] | | | | | | [address] | | | | + + + + + + | Absolute | 0.14Comment: Testing | 0.00 - 0.50 | EXTERNAL | | | Eosinophils | performed at [facility];[address] | K/uL | LAB | | | | [address];[place] | | | | | | [address] | | | | + + + + + + | Absolute | 0.06Comment: Testing | 0.00 - 0.10 | EXTERNAL | | | Basophils | performed at [facility];8 | K/uL | LAB | | | | [address];[place] | | | | | | [address] | | | | + + + + + + | RBC | 1+Comment: | | EXTERNAL | | | Morphology | ANISO1+HYPONORMAL PLT | | LAB | | | | MORPH1+MICROTesting | | | | | | performed at [facility];[address] | | | | | | [address];[place] | | | | | | [address] | | | | | |1+ | | | | | |MICRO | | | | | |Testing performed at [facility];[address];[place] [address] | | | | | | | [...] + +---------+ + + Comprehensive Metabolic Panel (02/21/2015 3:57 PM PST) + + + + + + | Component | Value | Ref Range | Performed | Pathologist | | | | | At | Signature | + + + + + + | Na | 136Comment: Testing | 135 - 143 | EXTERNAL | | | | performed at [facility];[address] | mmol/L | LAB | | | | [address];[place] | | | | | | [address] | | | | + + + + + + | K | 4.0Comment: Testing | 3.5 - 4.9 | EXTERNAL | | | | performed at [facility];[address] | mmol/L | LAB | | | | [address];[place] | | | | | | [address] | | | | + + + + + + | Cl | 102Comment: Testing | 99 - 109 mmol/L | EXTERNAL | | | | performed at [facility];[address] | | LAB | | | | [address];[place] | | | | | | [address] | | | | + + + + + + | CO2 | 26Comment: Testing | 23 - 32 mmol/L | EXTERNAL | | | | performed at [facility];[address] | | LAB | | | | [address];[place] | | | | | | [address] | | | | + + + + + + | Anion Gap | 12Comment: Testing | 5 - 20 mmol/L | EXTERNAL | | | | performed at [facility];[address] | | LAB | | | | [address];[place] | | | | | | [address] | | | | + + + + + + | Glucose, | 305 (H)Comment: Testing | 65 - 99 mg/dL | EXTERNAL | | | Fasting | performed at [facility];[address] | | LAB | | | | [address];[place] | | | | | | [address] | | | | + + + + + + | BUN | 20Comment: Testing | 8 - 25 mg/dL | EXTERNAL | | | | performed at [facility];[address] | | LAB | | | | [address];[place] | | | | | | [address] | | | | + + + + + + | Creatinine | 1.4 (H)Comment: Testing | 0.70 - 1.30 | EXTERNAL | | | | performed at [facility];[address] | mg/dL | LAB | | | | [address];[place] | | | | | | [address] | | | | + + + + + + | BUN/Creatin | 14Comment: Testing | | EXTERNAL | | | ine Ratio | performed at [facility];[address] | | LAB | | | | [address];[place] | | | | | | [address] | | | | + + + + + + | Calcium | 8.3 (L)Comment: Testing | 8.5 - 10.5 | EXTERNAL | | | | performed at [facility];[address] | mg/dL | LAB | | | | [address];[place] | | | | | | [address] | | | | + + + + + + | Protein, | 7.3Comment: Testing | 6.3 - 8.2 g/dL | EXTERNAL | | | Total | performed at [facility];[address] | | LAB | | | | [address];[place] | | | | | | [address] | | | | + + + + + + | Albumin | 3.1 (L)Comment: Testing | 3.3 - 4.8 g/dL | EXTERNAL | | | | performed at [facility];[address] | | LAB | | | | [address];[place] | | | | | | [address] | | | | + + + + + + | Globulin | 4.2Comment: Testing | 1.3 - 4.9 g/dL | EXTERNAL | | | | performed at [facility];[address] | | LAB | | | | [address];[place] | | | | | | [address] | | | | + + + + + + | A/G Ratio | 0.7 (L)Comment: Testing | 1.0 - 2.4 | EXTERNAL | | | | performed at [facility];[address] | | LAB | | | | [address];[place] | | | | | | [address] | | | | + + + + + + | Bilirubin | 0.3Comment: Testing | 0.1 - 1.5 mg/dL | EXTERNAL | | | Total | performed at [facility];[address] | | LAB | | | | [address];[place] | | | | | | [address] | | | | + + + + + + | ALP, | 141 (H)Comment: Testing | 35 - 115 U/L | EXTERNAL | | | External | performed at [facility];[address] | | LAB | | | | [address];[place] | | | | | | [address] | | | | + + + + + + | AST | 23Comment: Testing | 10 - 45 U/L | EXTERNAL | | | | performed at [facility];[address] | | LAB | | | | [address];[place] | | | | | | [address] | | | | + + + + + + | ALT | 22Comment: Testing | 10 - 65 U/L | EXTERNAL | | | | performed at [facility];[address] | | LAB | | | | [address];[place] | | | | | | [address] | | | | + + + + + + | Estimated | 55 (L)Comment: GFR <60: | mL/min/1.73m2 | EXTERNAL [...] | | | | | | at [facility];[address] | | | | | | [address];[place] [address] | | | | + + + [...]
--- OUTSIDE RECORDS SUMMARY | ~2019-09-09 | XMS | Encounter Summary ---
Demographics + + + | Address | [address] | | | [place] [address] | + + + | Home Phone [...] Sammi Kohler | ECON | [place] [address] | | + + + + + Care Team Providers + +------+ + | Care Mastic Floor Layer Name | Role | Phone | + +------+ + | Mireya Pack NP | PCP | | + +------+ + Reason for Visit + + + | Reason | Comments | + + + | Blood Sugar Problem | | + + + Encounter Details +--------+ + + + + | Date | Type | Department | Care Team | Description | +--------+ + + + + | 04/11/ | Telephone | [facility] | Lucia Amos | Blood Sugar Problem | | 2019 | | [facility] [address] | | | | | [address] | | | | | | [place] | | | | | | [address] | | | | | | [phone] | | | +--------+ + + + [...] Telephone Encounter - Lucia Amos RN - 04/12/2019 5:31 PM PSTPer provider's verbal recommendation, do Novolog 10u plus 5 units if > 300. Relayed to patient, he stated underst anding. He will eat supper later he said and it will go up. Reminded him that he still has t he detemir 45 u at night. He again stated understanidng. Routed to PCP as FYI. elephone Encounter - Lucia Amos RN - 04/12/2019 5:26 PM [id number] was his update d blood sugar reading. He has not eaten anything since talking to this nurse at 2:30. Routed to provider in PCP's absence. What are your recommendations for this? elephone Encounter - Devonte Stanton - 04/12/2019 4:18 PM PSTDavid , is calling again for Blood Sugar Problem and would like a call back. Additional Call Details: Please call patient back regarding sugar levels at [phone] elephone Encounter - Lucia Amos RN - 04/12/2019 2:37 PM PSTReceived call from patient who reported elevated blood sugar of 277 right now. He had just eaten two sandwiches 10 min ago, 2:27pm. He had al ready given himself a shot on insulin. Informed patient to wait for two hours before rechecking his blood sugar, if he checks it r ight after eating, the result will be too high. Patient at this time started yelling on the phone. Informed him that this nurse is trying to get information from him because the insuli n does not work right away. Per patient file, he is on NovoLog 10 units 3 times a day and also taking Levemir 45 units at night. Informed patient to recheck his blood sugar at 4:30 and to call clinic back with the suresh sanchez, informed not to eat anything from now on as this will elevate the reading further. Patiranjit t stated understanding although he was still yelling at this nurse. He will call back at 4:3 0pm. documented in this encounter Plan of Treatment +--------+---------+ + + + | Date | Type | Specialty | Care Team | Description | +--------+---------+ + + + | 09/10/ | Office | Geriatric Medicine | Mireya Pack, | | 2019 | Visit | | [employer] [address] | | | | | | [address] [place], | | | | | | [place] [address] | | | | | | [phone] | | | | | | | | +--------+---------+ + + + | 09/29/ | Office | Urology | Mireya Pack, | | 2019 | Visit | | [employer] [address] | | | | | | [address] [place], | | | | | | [place] [address] | | | | | | [phone] | | | | | | | | | | | | Toy Wild, | | | | | | [address] | | | | | | [place] [address] | | | | | | [phone] | | | | | | | | +--------+---------+ + + + documented as of this encounter Visit Diagnoses Not on filedocumented in this encounter"
--- OUTSIDE RECORDS SUMMARY | ~2019-09-09 | XMS | Encounter Summary ---
Demographics + + + | Address | [address] | | | [place] [address] | + + + | Home Phone [...] + | Sammi Kohler | ECON | [place] [address] | | + + + + + Care Team Providers + +------+ + | Care Management Sme Name | Role | Phone | + +------+ + PCP | Unavailable | + +------+ + Encounter Details +--------+ + + + + | Date | Type | Department | Care Team | Description | +--------+ + + + + | 08/27/ | Hospital | [facility] | | | | 2012 | Encounter | [facility] | | | | | | CLINICAL LABORATORY | | | | | | [address] | | | | | | [place], [place] | | | | | | [address] | | | | | | [phone] | | | +--------+ + + + [...] | | 2019 | Visit | | DATA OPERATIONS DIRECTOR [address] | | | | | | [address] [place], | | | | | | [place] [address] | | | | | | [phone] | | | | | | | | +--------+---------+ + + + | 09/29/ | Office | Urology | Mireya Pack, | | | 2019 | Visit | | DATA OPERATIONS DIRECTOR [address] | | | | | | [address] [place], | | | | | | [place] [address] | | | | | | [phone] | | | | | | | | | | | | Toy Wild, DO | | | | | | [address] | | | | | | [place] [address] | | | | | | [phone] | | | | | | | | +--------+---------+ + + + documented as of this encounter Visit Diagnoses Not on filedocumented in this encounter"
--- OUTSIDE RECORDS SUMMARY | ~2019-09-09 | XMS | Encounter Summary ---
Demographics + + + | Address | [address] | | | [place] [address] | + + + | Home Phone [...] + | Sammi Kohler | ECON | [place] [address] | | + + + + + Care Team Providers + +------+ + | Care Direct Marketing Specialist Name | Role | Phone | + +------+ + PCP | Unavailable | + +------+ + Encounter Details +--------+ + + + + | Date | Type | Department | Care Team | Description | +--------+ + + + + | 07/02/ | Hospital | [facility] | Conversion | | | 2014 | Encounter | CENTER [facility] | Transaction, | | | | | CLINIC [address] | Provider Unknown | | | | | [address] [place] | [phone] | | | | | [address] | | | | | | [phone] | Jevon Vargas, | | | | | | DO [address] | | | | | | [address] [place], | | | | | | [place] [address] | | | | | | [phone] | | | | | | | [...] 07/02/131804 Date of Service: 07/02/131803 Status: Signed Coat Cutter: Theodora Gaona RN (Registered Nurse) Talked to Tarah at patients residence, will send MAR tomorrow, reviewed meds for patient to take and stop and shower with hibiclens. onver ivana Transaction, Provider Unknown - 07/02/2013 5:34 PM PDT Pre-Procedure Instructions by Theodora Gaona RN at 07/02/131733 Author: Theodora Gaona RN Service: Anesthesiology Author Type: Registered Nurse Filed: 07/02/131800 Date of Service: 07/02/131733 Status: Addendum Coat Cutter: Theodora Gaona RN (Registered Nurse) Related Notes: Original Note by Theodora Gaona RN (Registered Nurse) filed at 07/02/13 173 7 Patient meets mets of 4 per AHA guidelines, denies chest pain or SOB when doing his own car e, dressing bathing, or walking, states he can get chest pain if he exerts himself. I walke d with patient in [place] to the [facility] and he has a very fast gait [...] | | 2019 | Visit | | DEVELOPMENT ENG [address] | | | | | | [address] [place], | | | | | | [place] [address] | | | | | | [phone] | | | | | | | | +--------+---------+ + + + | 09/29/ | Office | Urology | Mireya Pack, | | | 2019 | Visit | | DEVELOPMENT ENG [address] | | | | | | [address] [place], | | | | | | [place] [address] | | | | | | [phone] | | | | | | | | | | | | Toy Wild, DO | | | | | | [address] | | | | | | [place] [address] | | | | | | [phone] | | | | | | | [...] EXTERNAL LAB | | Testing performed at [facility];[address] [place] [address];[place] [address] MRSA PCR | | | NEGATIVE Testing performed at | | | [facility];[address] [place] [address];[place] [address] | | + + + + +---------+ + + | Performing | Address | City/State/Zipcode | Phone Number | | Organization | | | | + +---------+ + + | EXTERNAL LAB | | | | + +---------+ + + documented in this encounter Visit Diagnoses Not on filedocumented in this encounter"
--- OUTSIDE RECORDS SUMMARY | ~2019-09-09 | XMS | Encounter Summary ---
Demographics + + + | Address | [address] | | | [place] [address] | + + + | Home Phone [...] + | Sammi Kohler | ECON | [place] [address] | | + + + + + Care Team Providers + +------+ + | Care Rental Sales Representative Name | Role | Phone | + +------+ + PCP | Unavailable | + +------+ + Encounter Details +--------+ + + + + | Date | Type | Department | Care Team | Description | +--------+ + + + + | 09/16/ | Emergency | [facility] | Ashu Bobo | Atypical chest pain; | | 2019 | | [facility] | MD Gordon [address] | Uncontrolled type 2 | | | | EMERGENCY CENTER | [address] [place], [place] | diabetes mellitus | | | | [address] | [address] | with hyperglycemia | | | | [place], [place] | [phone] | (HCC) | | | | [address] | | | | | | [phone] | | | +--------+ + + + [...] Author: QUINN Tyson Service: (none) Author Type: Mail Rider Filed: 09/16/181918 Date of Service: 09/16/181822 Status: Signed Pharmacy Data Analyst: QUINN Tyson (Mail Rider) Met with patient, per provider referral. Arranged [...] in law, no POA. Notes also indicate [facility] to follow patient, though patient is unsure of this as they may not h ave contacted him at home yet. Patient is IADLS, ambulatory, and states that he is hoping t o get re-established with Radha PCP. Prior CM notes indicate [facility] has been enlisted to hel p with getting new PCP abbey as patient has not been compliant with meds. [facility] assistance fo r med management may be helpful as well. Transport arranged for forklift picker in [facility], patient and RN in agreement at this time. docume nted in this encounter ED Notes Ashu Bobo MD - 09/16/2018 4:19 PM PDT ED Provider Notes by Ashu Bobo MD at 09/16/18 1619 Author: Ashu Bobo MD Service: -Emergency Author Type: Physician Filed: 09/16/18 1800 Date of Service: 09/16/181618 Status: Addendum Pharmacy Data Analyst: Ashu Bobo MD (Physician) Related Notes: Original Note by Ashu Bobo MD (Physician) filed at 09/16/18 1744 [facility] Department of Emergency Medicine History of Present Illness Patient Identification Kveyn Guzman is a 62 y.o. male. 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 Obesity, Class I, BMI 30-34.9 07/08/2013 WARD (obstructive sleep apnea) 08/11/2012 does not use CPAP because of the noise Other chronic pain Renal failure Stroke (HCC) TIA (transient ischemic attack) Unspecified visual disturbance reading glasses Past Surgical History Procedure Laterality Date ABDOMINAL SURGERY CHOLECYSTECTOMY CHOLECYSTECTOMY, LAPAROSCOPIC N/A 09/12/2012 Procedure: LAPAROSCOPIC - CHOLECYSTECTOMY; Surgeon: Jevon Vargas DO; Location: [facility]; Service: General; Laterality: N/A; COLONOSCOPY COLONOSCOPY N/A 03/04/2013 Procedure: COLONOSCOPY; Surgeon: Howie Gibson MD; Location: [facility] END[facility]; Service: Gastroen terology; Laterality: N/A; ESOPHAGOGASTRODUODENOSCOPY N/A 03/03/2013 Procedure: ESOPHAGOGASTRODUODENOSCOPY; Surgeon: Howie Gibson MD; Location: [facility]; Se rvice: Gastroenterology; Laterality: N/A; HERNIA REPAIR N/A 07/03/2013 Procedure: LAPAROSCOPIC - HERNIA - INCISIONAL; Surgeon: Jevon Vargas DO; Location: [facility] MA[facility] OR; Service: General; Laterality: N/A; KNEE SURGERY rt knee, patella LEG SURGERY LLE SKIN BIOPSY SKIN CANCER EXCISION Left 10/10/2012 Procedure: EXCISION - SKIN CANCER; Surgeon: Sy Fierro MD; Location: [facility]; Service: Plastics; Laterality: Left; upper arm and upper back w/frozen section SKIN LESION EXCISION Left 05/05/2014 Procedure: EXCISION - LESION - FROZEN SECTION; Surgeon: Sy Fierro MD; Location: [facility] OR; Service: Plastics; Laterality: [...] of children: 1 Years of education: s. [employer] Occupational History disabled Social History Main Topics [...] care plan in the EMR. Laboratory Evaluation [facility] CARD PANEL W/O TRP (ED ONLY) - Abnormal; Notable for the following: Result Value MONOCYTES ABS 0.81 (*) POTASSIUM 3.3 (*) GLUCOSE 273 (*) All other components within normal limits TROPONIN I D-DIMER, QUANTITATIVE POC CARDIAC TROPONIN Radiology and EKG Evaluation 12-lead ECG: Time of exam 1611. Interpreted independently by me. Rate: 79. Rhythm: NSR. Ectopy: None. Reddell: nml. Intervals: LVH. Infarct/Ischemia: none. Technique: Some [...] possible fo r a visit [address] [address] Discharge Medications: New Prescriptions No new medications Procedures Additional Documentation Procedures Ashu Bobo MD 09/16/18 4530 Pt expressed he is having problems with outpt follow up and some transportation problems. I have asked WASTE REDUCTION COORDINATOR Jenniffer to evaluate the pt to see if there is any way we can help. Ashu Bobo MD 09/16/18 1800 onversion Transa ction, Provider Unknown - 09/16/2018 4:15 PM PDT ED Notes by Evette Mcgarry at 09/16/18 1615 Author: Evette Mcgarry Service: (none) Author Type: Brick Veneer Maker Filed: 09/16/181614 Date of Service: 09/16/181614 Status: Signed Pharmacy Data Analyst: Evette Mcgarry (Brick Veneer Maker) EKG completed shown to Dr Jeramie Mcgarry 09/16/181614 onver ivana Transaction, Provider Unknown - 09/16/2018 4:09 PM PDT ED Notes by Samantha Olivo RN at 09/16/181608 Author: Samantha Olivo RN Service: (none) Author Type: Registered Nurse Filed: 09/16/181608 Date of Service: 09/16/181608 Status: Signed Pharmacy Data Analyst: Samantha Olivo RN (Registered Nurse) Bed: 14 [...] | | 2019 | Visit | | RIG SUPERVISOR [address] | | | | | | [address] [place], | | | | | | [place] [address] | | | | | | [phone] | | | | | | | | +--------+---------+ + + + | 09/29/ | Office | Urology | Mireya Pack, | | | 2020 | Visit | | RIG SUPERVISOR [address] | | | | | | [address] [place], | | | | | | [place] [address] | | | | | | [phone] | | | | | | | | | | | | Toy Wild, DO | | | | | | [address] | | | | | | [place] [address] | | | | | | [phone] | | | | | | | [...] Signed by: Irina Arrington Irene Sign Date/Time: | | | 09/16/2018 4:29 PM [...] + + | Joaquin Ramos Conversion - 10/12/2018 8:46 AM PDT CHEST [...] | | | | | | [facility];[address] [place] [address] | | | | | | [facility];[place] [address] | | | | + + + [...] | | | | performed at [facility];[address] | | | | | | [address];[place], [place] | | | | | | [address] | | | | + + + [...]
--- OUTSIDE RECORDS SUMMARY | ~2019-09-09 | XMS | Encounter Summary ---
Demographics + + + | Address | [address] | | | [place] [address] | + + + | Home Phone [...] Sammi Kohler | ECON | [place] [address] | | + + + + + Care Team Providers + +------+ + | Care Ems Manager Name | Role | Phone | [...] | | | | | | [address] [facility] | [place] | | | | | [address] | [address] | | | | | | [place], [place] | [place], | | | | | | [address] | [place] [address] | | | | | | Phone: | Phone: | | | | | | [phone] | [phone] | | | | | | Fax: | Fax: | | | | | | [phone] | [phone] | + + + + + + + Encounter Details +--------+ + + + + | Date | Type | Department | Care Team | Description | +--------+ + + + + | 08/22/ | Anti-coag | [facility] | Mireya Pcak, | Atrial fibrillation | | 2020 | visit | CENTER | MERCHANDISE SUPPORT ASSOCIATE [address] | with RVR (HCC) | | | | ANTICOAGULATION | [address] [place], | | | | | CLINIC [place] | [place] [address] | | | | | [address] | [phone] | | | | | [place], [place] | | | | | | [address] | Ninoska Knight, SUPERVISOR PARTICLEBOARD | | | | | [phone] | | | +--------+ + + + [...] of this encounter Patient Instructions Patient Instructions Ninoska Knight LPN - 08/23/2019 1:20 PM PDTDate: 08/23/2019 Todays [...] 21% per Nolvia BOUCHER who will notify [facility] regarding warfarin concerns and dosing. New [...] | | 2019 | Visit | | MERCHANDISE SUPPORT ASSOCIATE [address] | | | | | | [address] [place], | | | | | | [place] [address] | | | | | | [phone] | | | | | | | | +--------+---------+ + + + | 09/29/ | Office | Urology | Mireya Pack, | | | 2019 | Visit | | MERCHANDISE SUPPORT ASSOCIATE [address] | | | | | | [address] [place], | | | | | | [place] [address] | | | | | | [phone] | | | | | | | | | | | | Toy Wild, DO | | | | | | [address] | | | | | | [place] [address] | | | | | | [phone] | | | | | | | [...] | | | | PDT | [facility] ([facility]) | results section. | + +--------+ + + + documented in this encounter Results POCT PT/INR fingerstick (08/23/2019 12:50 PM PDT) + +-------+ + [...]
--- OUTSIDE RECORDS SUMMARY | ~2019-09-09 | XMS | Encounter Summary ---
Demographics + + + | Address | [address] | | | [place] [address] | + + + | Home Phone [...] Sammi Kohler | ECON | [place] [address] | | + + + + + Care Team Providers + +------+ + | Care Rigger Third Name | Role | Phone | + +------+ + | Mireya Pack NP | PCP | | + +------+ + Reason for Visit +--------+--------+ + | Reason | Onset | Comments | | | Date | | +--------+--------+ + | Triage | 11/13/ | Rectal Bleeding | | | 2018 | | +--------+--------+ + Encounter Details +--------+ + + + + | Date | Type | Department | Care Team | Description | +--------+ + + + + | 11/13/ | Telephone | [facility] | Mireya Pack, | Triage (Rectal | | 2019 | | [facility] [address] | APPLICATION ENGINEER [address] | Bleeding) | | | [address] | [address] [place], | | | | | [place], [place] | [place] [address] | | | | | [address] | [phone] | | | | | [phone] | | | +--------+ + + + [...] this encounter Miscellaneous Notes Telephone Encounter - Naomie Ocasio RN - 11/13/2018 10:40 AM PDTSymptoms: Rectal blee ding during and between BM's. Small clots, in between stools with "a little" abdominal pain to left upper abdomen and flank. Length: Started yesterday Pertinent Negatives: No blood noted in the stool, not black or tarry. No N/V, has been afe brile Advised an ED evaluation, understanding voiced. elephone Encounter - Maureen Gabriel - 11/13/2018 10:39 A M PDTPatient states that he is bleeding from rectum documented in this encounter Plan of Treatment +--------+---------+ + + + | Date | Type | Specialty | Care Team | Description | +--------+---------+ + + + | 09/10/ | Office | Geriatric Medicine | Mireya Pack, | | | 2019 | Visit | | APPLICATION ENGINEER [address] | | | | | | [address] [place], | | | | | | [place] [address] | | | | | | [phone] | | | | | | | | +--------+---------+ + + + | 09/29/ | Office | Urology | Mireya Pack, | | | 2019 | Visit | | APPLICATION ENGINEER [address] | | | | | | [address] [place], | | | | | | [place] [address] | | | | | | [phone] | | | | | | | | | | | | Toy Wild, DO | | | | | | [address] | | | | | | [place] [address] | | | | | | [phone] | | | | | | | | +--------+---------+ + + + documented as of this encounter Visit Diagnoses Not on filedocumented in this encounter
--- OUTSIDE RECORDS SUMMARY | ~2019-09-09 | XMS | Encounter Summary ---
Demographics + + + | Address | [address] | | | [place] [address] | + + + | Home Phone [...] + | Sammi Kohler | ECON | [place] [address] | | + + + + + Care Team Providers + +------+ + | Care Intelligence Analyst Name | Role | Phone | + +------+ + PCP | Unavailable | + +------+ + Encounter Details +--------+ + + + + | Date | Type | Department | Care Team | Description | +--------+ + + + + | 01/18/ | Emergency | [facility] | Pheysey, Kevyn, MD | Hyperglycemia due to | | 2015 | | [facility] | [address] | type 2 diabetes | | | | EMERGENCY CENTER | [place] [address] | mellitus (HCC); | | | | [address] | [phone] | Chronic chest pain | | | | [place], [place] | | | | | | [address] | | | | | | [phone] | | | +--------+ + + + [...] 01/18/15816 Date of Service: 01/18/15619 Status: Signed Hydraulic Governor Assembler: Kevyn Barker MD (Physician) [facility] Department of Emergency Medicine No flowsheet data found. History of Present Illness Patient Identification Kevyn Guzman is a 59 y.o. male. Patient information was obtained from patient. History/Exam limitations: none. 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 Past Surgical History Procedure Laterality Date Unlisted procedure arthroscopy Knee surgery rt knee, patella Leg surgery LLE Colonoscopy Cholecystectomy, laparoscopic 09/12/2012 Procedure: LAPAROSCOPIC - CHOLECYSTECTOMY; Surgeon: Jevon Vargas DO; Location: [facility] OR; Service: General; Laterality: N/A; Abdominal surgery Cholecystectomy Skin cancer excision 10/10/2012 Procedure: EXCISION - SKIN CANCER; Surgeon: Sy Fierro MD; Location: [facility] ; Service: Plastics; Laterality: Left; upper arm and upper back w/frozen section Esophagogastroduodenoscopy 03/03/2013 Procedure: ESOPHAGOGASTRODUODENOSCOPY; Surgeon: Howie Gibson MD; Location: [facility]COPY; S ervice: Gastroenterology; Laterality: N/A; Colonoscopy 03/04/2013 Procedure: COLONOSCOPY; Surgeon: Howie Gibson MD; Location: [facility]; Service: Gastroe nterology; Laterality: N/A; Upper gastrointestinal endoscopy Skin biopsy Hernia repair 07/03/2013 Procedure: LAPAROSCOPIC - HERNIA - INCISIONAL; Surgeon: Jevon Vargas DO; Location: [facility]; Service: General; Laterality: N/A; Skin lesion excision Left 05/05/2014 Procedure: EXCISION - LESION - FROZEN SECTION; Surgeon: Sy Fierro MD; Location: [facility]; Service: Plastics; Laterality: Left; forearm Prior to Admission medications Medication Sig Start Date End Date Taking? Authorizing Provider Albuterol Sulfate (VENTOLIN HFA IN) Inhale 2 puffs into the lungs as needed. 108 mcg/act Historical Provider Uxznb-Z-Hgxaotuvujetb (BEANO) TABS Take 150 Units by mouth [...] 100 mg by mouth nightly. Historical Provider eeglcowta-espqynax-topnqgicj hydroxide-simethicone Take 40 mLs by mouth daily [...] Component Value Ref Range Date/Time Cardiac Panel [[id number]] (Abnormal) Collected: 01/18/1537 Order Status: Completed Updated: 01/18/15708 WBC 8.56 3.80 - 11.00 K/uL RBC [...] 3.6 ng/mL CK-MB Index 2.5 Ketones, Serum [[id number]] Collected: 01/18/1537 Order Status: Completed Specimen Information: Blood Updated: 01/18/15 0656 KETONES,SERUM NEGATIVE NEGATIVE POC cardiac troponin [[id number]] Collected: 01/18/1540 Order Status: Completed Updated: 01/18/1554 POC CARDIAC TROPONIN 0.01 0.00 - 0.10 ng/mL Lab Interpretation I have reviewed lab results from the emergency department workup and abnormal results have been posted to the chart. Pertinent positive and negative findings have been addressed appr opriately. Radiology and EKG Evaluation Imaging Results None ECG from 618: Sinus rhythm at 75 bpm. OK, QRS, QT, and axis are normal. No [...] DO [address] [facility] [id number] [facility] Emergency Department If symptoms worsen [address] [facility] [id number] Discharge Medications: Discharge Medication List as of 01/18/2015 7:45 AM This document has been prepared with a voice recognition system. The possibility of "sound alike" fixed route operator errors, addition and/or deletions may occur. [...] 01/18/15617 Date of Service: 01/18/15617 Status: Signed Hydraulic Governor Assembler: Ivonne Hernandez RN (Registered Nurse) Bed: 07 Expected date: Expected time: Means of arrival: Comments: docume nted in this encounter Plan of Treatment +--------+---------+ + + + | Date | Type | Specialty | Care Team | Description | +--------+---------+ + + + | 09/10/ | Office | Geriatric Medicine | Mireya Pack, | | | 2019 | Visit | | LEASING MACHINE TENDER [address] | | | | | | [address] [place], | | | | | | [place] [address] | | | | | | [phone] | | | | | | | | +--------+---------+ + + + | 09/29/ | Office | Urology | Mireya Pack, | | | 2020 | Visit | | LEASING MACHINE TENDER [address] | | | | | | [address] [place], | | | | | | [place] [address] | | | | | | [phone] | | | | | | | | | | | | Toy Wild, DO | | | | | | [address] | | | | | | [place] [address] | | | | | | [phone] | | | | | | | [...] | | | Fingerstick | performed at [facility];[address] | | LAB | | | | [address];[place], [place] | | | | | | [address] | | | | + + + [...] | | | Blood | performed at [facility];[address] | | LAB | | | | [address];[place] | | | | | | [address] | | | | + + + [...] [facility];[address] | K/uL | LAB | | | | [address];[place] | | | | | | [address] | | | | + + + + + + | Non- | 5.09Comment: Testing | 4.20 - 5.70 | EXTERNAL | | | Red Blood | performed at [facility];[address] | M/uL | LAB | | | Cells | [address];[place] | | | | | Counted | [address] | | | | + + + + + + | Hemoglobin | 12.3 (L)Comment: Testing | 13.2 - 17.0 | EXTERNAL | | | | performed at [facility];888 | g/dL | LAB | | | | [address];[place] | | | | | | [address] | | | | + + + + + + | Hematocrit, | 38.0 (L)Comment: Testing | 39.0 - 50.0 % | EXTERNAL | | | POC | performed at [facility];[address] | | LAB | | | | [address];[place] | | | | | | [address] | | | | + + + + + + | MCV | 74.7 (L)Comment: Testing | 80.0 - 100.0 fl | EXTERNAL | | | | performed at [facility];[address] | | LAB | | | | [address];[place] | | | | | | [address] | | | | + + + + + + | MCH | 24.1 (L)Comment: Testing | 27.0 - 34.0 pg | EXTERNAL | | | | performed at [facility];[address] | | LAB | | | | [address];[place] | | | | | | [address] | | | | + + + + + + | MCHC | 32.3Comment: Testing | 32.0 - 35.5 | EXTERNAL | | | | performed at [facility];[address] | g/dL | LAB | | | | [address];[place] | | | | | | [address] | | | | + + + + + + | RDW-CV | 43.8Comment: Testing | 37 - 53 fl | EXTERNAL | | | | performed at [facility];[address] | | LAB | | | | [address];[place] | | | | | | [address] | | | | + + + + + + | Platelet | 265Comment: Testing | 150 - 400 K/uL | EXTERNAL | | | Count | performed at [facility];[address] | | LAB | | | Plasma | [address];[place] | | | | | | [address] | | | | + + + + + + | MPV | 7.4Comment: Testing | fl | EXTERNAL | | | | performed at [facility];[address] | | LAB | | | | [address];[place] | | | | | | [address] | | | | + + + + + + | Differentia | AUTOMATEDComment: | | EXTERNAL | | | l Type | Testing performed at | | LAB | | | | [facility];[address] | [address];[place] [address] | | | | + + + + + + | % Segmented | 45.96Comment: Testing | % | EXTERNAL | | | | performed at [facility];[address] | | LAB | | | Neutrophils | [address];[place] | | | | | | [address] | | | | + + + + + + | % | 38.10Comment: Testing | % | EXTERNAL | | | Lymphocytes | performed at [facility];[address] | | LAB | | | | [address];[place] | | | | | | [address] | | | | + + + + + + | % Monocytes | 10.66Comment: Testing | % | EXTERNAL | | | | performed at [facility];[address] | | LAB | | | | [address];[place] | | | | | | [address] | | | | + + + + + + | % | 4.38Comment: Testing | % | EXTERNAL | | | Eosinophils | performed at [facility];[address] | | LAB | | | | [address];[place] | | | | | | [address] | | | | + + + + + + | % Basophils | 0.90Comment: Testing | % | EXTERNAL | | | | performed at [facility];[address] | | LAB | | | | [address];[place] | | | | | | [address] | | | | + + + + + + | Absolute | 3.93Comment: Testing | 1.90 - 7.40 | EXTERNAL | | | Segmented | performed at [facility];[address] | K/uL | LAB | | | Neutrophils | [address];[place] | | | | | | [address] | | | | + + + + + + | Absolute | 3.26Comment: Testing | 1.00 - 3.90 | EXTERNAL | | | Lymphocytes | performed at [facility];[address] | K/uL | LAB | | | | [address];[place] | | | | | | [address] | | | | + + + + + + | Absolute | 0.91 (H)Comment: Testing | 0.00 - 0.80 | EXTERNAL | | | Monocytes | performed at [facility];[address] | K/uL | LAB | | | | [address];[place] | | | | | | [address] | | | | + + + + + + | Absolute | 0.38Comment: Testing | 0.00 - 0.50 | EXTERNAL | | | Eosinophils | performed at [facility];[address] | K/uL | LAB | | | | [address];[place] | | | | | | [address] | | | | + + + + + + | Absolute | 0.08Comment: Testing | 0.00 - 0.10 | EXTERNAL | | | Basophils | performed at [facility];[address] | K/uL | LAB | | | | [address];[place] | | | | | | [address] | | | | + + + + + + | RBC | 1+Comment: | | EXTERNAL | | | Morphology | HYPO2+MICRONORMAL PLT | | LAB | | | | MORPHTesting performed | | | | | | at [facility];[address] | | | | | | [address];[place] [address] | | | | | |NORMAL PLT MORPH | | | | | |Testing performed at [facility];[address];[place] [address] | | | | | | | | | | + + + + + + | Platelet | ADEQUATEComment: Testing | | EXTERNAL | | | Estimate | performed at [facility];[address] | | LAB | | | | [address];[place] | | | | | | [address] | | | | + + + + + + | Na | 139Comment: Testing | 135 - 143 | EXTERNAL | | | | performed at [facility];[address] | mmol/L | LAB | | | | [address];[place] | | | | | | [address] | | | | + + + + + + | K | 4.0Comment: Testing | 3.5 - 4.9 | EXTERNAL | | | | performed at [facility];[address] | mmol/L | LAB | | | | [address];[place] | | | | | | [address] | | | | + + + + + + | Cl | 105Comment: Testing | 99 - 109 mmol/L | EXTERNAL | | | | performed at [facility];[address] | | LAB | | | | [address];[place] | | | | | | [address] | | | | + + + + + + | CO2 | 27Comment: Testing | 23 - 32 mmol/L | EXTERNAL | | | | performed at [facility];[address] | | LAB | | | | [address];[place] | | | | | | [address] | | | | + + + [...] | | | Fasting | performed at [facility];[address] | | LAB | | | | [address];[place] | | | | | | [address] | | | | + + + + + + | BUN | 15Comment: Testing | 8 - 25 mg/dL | EXTERNAL | | | | performed at [facility];[address] | | LAB | | | | [address];[place] | | | | | | [address] | | | | + + + + + + | Creatinine | 0.85Comment: Testing | 0.70 - 1.30 | EXTERNAL | | | | performed at [facility];[address] | mg/dL | LAB | | | | [address];[place] | | | | | | [address] | | | | + + + + + + | BUN/Creatin | 17Comment: Testing | | EXTERNAL | | | ine Ratio | performed at [facility];[address] | | LAB | | | | [address];[place] | | | | | | [address] | | | | + + + + + + | Calcium | 8.4 (L)Comment: Testing | 8.5 - 10.5 | EXTERNAL | | | | performed at [facility];[address] | mg/dL | LAB | | | | [address];[place] | | | | | | [address] | | | | + + + + + + | Protein, | 6.6Comment: Testing | 6.3 - 8.2 g/dL | EXTERNAL | | | Total | performed at [facility];[address] | | LAB | | | | [address];[place] | | | | | | [address] | | | | + + + + + + | Albumin | 2.9 (L)Comment: Testing | 3.3 - 4.8 g/dL | EXTERNAL | | | | performed at [facility];[address] | | LAB | | | | [address];[place] | | | | | | [address] | | | | + + + + + + | Globulin | 3.7Comment: Testing | 1.3 - 4.9 g/dL | EXTERNAL | | | | performed at [facility];[address] | | LAB | | | | [address];[place] | | | | | | [address] | | | | + + + + + + | A/G Ratio | 0.8 (L)Comment: Testing | 1.0 - 2.4 | EXTERNAL | | | | performed at [facility];[address] | | LAB | | | | [address];[place] | | | | | | [address] | | | | + + + + + + | Bilirubin | 0.2Comment: Testing | 0.1 - 1.5 mg/dL | EXTERNAL | | | Total | performed at [facility];[address] | | LAB | | | | [address];[place] | | | | | | [address] | | | | + + + + + + | ALP, | 137 (H)Comment: Testing | 35 - 115 U/L | EXTERNAL | | | External | performed at [facility];[address] | | LAB | | | | [address];[place] | | | | | | [address] | | | | + + + + + + | AST | 14Comment: Testing | 10 - 45 U/L | EXTERNAL | | | | performed at [facility];[address] | | LAB | | | | [address];[place] | | | | | | [address] | | | | + + + + + + | ALT | 21Comment: Testing | 10 - 65 U/L | EXTERNAL | | | | performed at [facility];[address] | | LAB | | | | [address];[place] | | | | | | [address] | | | | + + + [...] | | | | | | at [facility];[address];[place] [address] | | | | + + + + + + | CK, Total | 95Comment: Testing | 55 - 400 U/L | EXTERNAL | | | | performed at [facility];[address] | | LAB | | | | [address];[place] | | | | | | [address] | | | | + + + [...] [place];[address] | | | | | | [address];[place] | | | | | | [address] | | | | + + + + + + | aPTT, | 34 (H)Comment: Testing | 23 - 32 seconds | EXTERNAL | | | Patient | performed at [facility];[address] | | LAB | | | | [address];[place] | | | | | | [address] | | | | + + + + + + | CK-MB | 2.4Comment: Testing | 0.5 - 3.6 ng/mL | EXTERNAL | | | | performed at [facility];[address] | | LAB | | | | [address];[place] | | | | | | [address] | | | | + + + [...] | | | | | ONLY, -COMPUTER ([id number]), | | | | | | social media editor Nola Avila | | | | | | (15) on 01/18/2015 | | | | | | 4:06:16 PM | | | | + + + + + + + + | Specimen | + + | | + + + + + | Narrative | Performed At | + + + | Historically converted procedure from [facility] Epic environment | EXTERNAL LAB | [...]
--- OUTSIDE RECORDS SUMMARY | ~2019-09-09 | XMS | Encounter Summary ---
Demographics + + + | Address | [address] | | | [place] [address] | + + + | Home Phone [...] Sammi Kohler | ECON | [place] [address] | | + + + + + Care Team Providers + +------+ + | Care Sheet Rock Taper Helper Name | Role | Phone | + +------+ + | Mireya Pack NP | PCP | | + +------+ + Reason for Visit + +--------+ + | Reason | Onset | Comments | | | Date | | + +--------+ + | Appointment | 08/20/ | call to schedule an apointment | | | 2020 | | + +--------+ + Encounter Details +--------+ + + + + | Date | Type | Department | Care Team | Description | +--------+ + + + + | 08/20/ | Telephone | [facility] | Mireya Pack, | Appointment (call to | | 2020 | | [facility] | SPIRITUAL COUNSELOR [address] | schedule an | | | | [address] | [address] [place], | apointment) | | | | [place], [place] | [place] [address] | | | | | [address] | [phone] | | | | | [phone] | | | +--------+ + + + [...] this encounter Miscellaneous Notes Telephone Encounter - Yojana Krause, Cargo Tank Mechanic - 08/21/2019 1:40 PM P DTCall patient and spoke to patient to schedule a 1 month follow-up. I also remained pt. To bring blood sugar, B/P logs, and medication. elephone Encounter - Miriam Krause, Cargo Tank Mechanic - 08/21/2019 1:40 PM PDT----- Message from NORM White at 08/21/2019 1:31 PM PDT ----- Call to schedule 1 month appt, make appt note "in-person appt per provider - remind patient to bring blood sugar and bp log and medications" P M PDTdocumented in this encounter Plan of Treatment +--------+---------+ + + + | Date | Type | Specialty | Care Team | Description | +--------+---------+ + + + | 09/10/ | Office | Geriatric Medicine | Mireya Pack, | | | 2019 | Visit | | SPIRITUAL COUNSELOR [address] | | | | | | [address] [place], | | | | | | [place] [address] | | | | | | [phone] | | | | | | | | +--------+---------+ + + + | 09/29/ | Office | Urology | Mireya Pack, | | | 2019 | Visit | | SPIRITUAL COUNSELOR [address] | | | | | | [address] [place], | | | | | | [place] [address] | | | | | | [phone] | | | | | | | | | | | | Toy Wild DO | | | | | | [address] | | | | | | [place] [address] | | | | | | [phone] | | | | | | | | +--------+---------+ + + + documented as of this encounter Visit Diagnoses Not on filedocumented in this encounter
--- OUTSIDE RECORDS SUMMARY | ~2019-09-09 | XMS | Encounter Summary ---
Demographics + + + | Address | [address] | | | [place] [address] | + + + | Home Phone [...] + | Sammi Kohler | ECON | [place] [address] | | + + + + + Care Team Providers + +------+ + | Care Medical Geneticist Name | Role | Phone | + +------+ + PCP | Unavailable | + +------+ + Encounter Details +--------+ + + + + | Date | Type | Department | Care Team | Description | +--------+ + + + + | 12/11/ | Emergency | [facility] | Norah Calvo, | Chest pain, | | 2015 | | MEDICAL CENTER | [address] | unspecified chest | | | | EMERGENCY CENTER | [place] [address] | pain type | | | | [address] | [phone] | | | | | [place], [place] | | | | | | [address] | | | | | | [phone] | | | +--------+ + + + [...] 12/11/14722 Date of Service: 12/11/14334 Status: Signed Supervisor Rides: Norah Calvo MD (Physician) [facility] Department of Emergency Medicine 3:35 AM History [...] pain Stroke (HCC) TIA (transient ischemic attack) jail (current) use of 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 Past Surgical History [...] SECTION; Surgeon: Sy Fierro MD; Location: [facility] MAIN OR; Service: Plastics; Laterality: Left; forearm Prior to Admission medications Medication Sig Start Date End Date Taking? Authorizing Provider Albuterol Sulfate (VENTOLIN HFA IN) Inhale 2 puffs into the lungs as needed. 108 mcg/act Historical Provider Gsveb-Z-Dlmklkngzhhzw (BEANO) TABS Take 150 Units by mouth [...] 100 mg by mouth nightly. Historical Provider fxvkmoavt-vgbimlng-ltlvkxfgk hydroxide-simethicone Take 40 mLs by mouth daily [...] Positive for chest pain, Resp: Negative for eaqwsdoyh-oy-rcgblg, cough GI: Positive for vomiting, spitting up [...] Component Value Ref Range Date/Time Cardiac Panel [[id number]] (Abnormal) Collected: 12/11/14357 Order Status: Completed Updated: [...] ng/mL CK-MB Index 1.9 POC cardiac troponin [[id number]] Collected: 12/11/14399 Order Status: Completed Updated: 12/11/14414 [...] needed [address] [place] [address] [facility] Emergency Department If symptoms worsen [address] [facility] [address] Discharge Medications: Discharge Medication List as of 12/11/2014 5:04 AM Dictation software, [employer], used which may contain error for similar [...] | | 2019 | Visit | | [facility] [address] | | | | | | [address] [place], | | | | | | [place] [address] | | | | | | [phone] | | | | | | | | +--------+---------+ + + + | 09/29/ | Office | Urology | Mireya Pack, | | | 2020 | Visit | | [facility] [address] | | | | | | [address] [place], | | | | | | [place] [address] | | | | | | [phone] | | | | | | | | | | | | Toy Wild, DO | | | | | | [address] | | | | | | [place] [address] | | | | | | [phone] | | | | | | | [...] [facility];[address] | K/uL | LAB | | | | [address];[place] | | | | | | [address] | | | | + + + + + + | Non- | 4.94Comment: Testing | 4.20 - 5.70 | EXTERNAL | | | Red Blood | performed at [facility];[address] | M/uL | LAB | | | Cells | [address];[place] | | | | | Counted | [address] | | | | + + + + + + | Hemoglobin | 11.9 (L)Comment: Testing | 13.2 - 17.0 | EXTERNAL | | | | performed at [facility];888 | g/dL | LAB | | | | [address];[place] | | | | | | [address] | | | | + + + + + + | Hematocrit, | 37.9 (L)Comment: Testing | 39.0 - 50.0 % | EXTERNAL | | | POC | performed at [facility];[address] | | LAB | | | | [address];[place] | | | | | | [address] | | | | + + + [...] [place] | | | | | | [address] | | | | + + + + + + | MCHC | 31.3 (L)Comment: Testing | 32.0 - 35.5 | EXTERNAL | | | | performed at [facility];888 | g/dL | LAB | | | [address];[place] | | | | | | [address] | | | | + + + + + + | RDW-CV | 43.3Comment: Testing | 37 - 53 fl | EXTERNAL | | | | performed at [facility];[address] | | LAB | | | | [address];[place] | | | | | | [address] | | | | + + + + + + | Platelet | 280Comment: Testing | 150 - 400 K/uL | EXTERNAL | | | Count | performed at [facility];[address] | | LAB | | | Plasma | [address];[place] | | | | | | [address] | | | | + + + + + + | MPV | 7.4Comment: Testing | fl | EXTERNAL | | | | performed at [facility];[address] | | LAB | | | | [address];[place] | | | | | | [address] | | | | + + + + + + | Differentia | AUTOMATEDComment: | | EXTERNAL | | | l Type | Testing performed at | | LAB | | | | [facility];[address] | | | | | | [address];[place] [address] | | | | + + + + + + | % Segmented | 51.78Comment: Testing | % | EXTERNAL | | | | performed at [facility];[address] | | LAB | | | Neutrophils | [address];[place] | | | | | | [address] | | | | + + + + + + | % | 32.94Comment: Testing | % | EXTERNAL | | | Lymphocytes | performed at [facility];[address] | | LAB | | | | [address];[place] | | | | | | [address] | | | | + + + + + + | % Monocytes | 9.92Comment: Testing | % | EXTERNAL | | | | performed at [facility];[address] | | LAB | | | | [address];[place] | | | | | | [address] | | | | + + + + + + | % | 4.26Comment: Testing | % | EXTERNAL | | | Eosinophils | performed at [facility];[address] | | LAB | | | | [address];[place] | | | | | | [address] | | | | + + + + + + | % Basophils | 1.10Comment: Testing | % | EXTERNAL | | | | performed at [facility];[address] | | LAB | | | | [address];[place] | | | | | | [address] | | | | + + + + + + | Absolute | 4.43Comment: Testing | 1.90 - 7.40 | EXTERNAL | | | Segmented | performed at [facility];[address] | K/uL | LAB | | | Neutrophils | [address];[place] | | | | | | [address] | | | | + + + + + + | Absolute | 2.82Comment: Testing | 1.00 - 3.90 | EXTERNAL | | | Lymphocytes | performed at [facility];[address] | K/uL | LAB | | | | [address];[place] | | | | | | [address] | | | | + + + + + + | Absolute | 0.85 (H)Comment: Testing | 0.00 - 0.80 | EXTERNAL | | | Monocytes | performed at [facility];[address] | K/uL | LAB | | | | [address];[place] | | | | | | [address] | | | | + + + + + + | Absolute | 0.36Comment: Testing | 0.00 - 0.50 | EXTERNAL | | | Eosinophils | performed at [facility];[address] | K/uL | LAB | | | | [address];[place] | | | | | | [address] | | | | + + + + + + | Absolute | 0.09Comment: Testing | 0.00 - 0.10 | EXTERNAL | | | Basophils | performed at [facility];[address] | K/uL | LAB | | | | [address];[place] | | | | | | [address] | | | | + + + + + + | RBC | 1+Comment: | | EXTERNAL | | | Morphology | MICRO1+HYPONORMAL PLT | | LAB | | | | MORPHTesting performed | | | | | | at [facility];[address] | | | | | [address];[place] [address] | | | | | |NORMAL PLT MORPH | | | | | |Testing performed at [facility];[address];[place] [address] | | | | | | | | | | + + + + + + | Platelet | ADEQUATEComment: Testing | | EXTERNAL | | | Estimate | performed at [facility];[address] | | LAB | | | | [address];[place] | | | | | | [address] | | | | + + + + + + | Na | 141Comment: Testing | 135 - 143 | EXTERNAL | | | | performed at [facility];[address] | mmol/L | LAB | | | | [address];[place] | | | | | | [address] | | | | + + + + + + | K | 3.8Comment: Testing | 3.5 - 4.9 | EXTERNAL | | | | performed at [facility];[address] | mmol/L | LAB | | | | [address];[place] | | | | | | [address] | | | | + + + + + + | Cl | 108Comment: Testing | 99 - 109 mmol/L | EXTERNAL | | | | performed at [facility];[address] | | LAB | | | | [address];[place] | | | | | | [address] | | | | + + + + + + | CO2 | 27Comment: Testing | 23 - 32 mmol/L | EXTERNAL | | | | performed at [facility];[address] | | LAB | | | | [address];[place] | | | | | | [address] | | | | + + + + + + | Anion Gap | 10Comment: Testing | 5 - 20 mmol/L | EXTERNAL | | | | performed at [facility];[address] | | LAB | | | | [address];[place] | | | | | | [address] | | | | + + + + + + | Glucose, | 175 (H)Comment: Testing | 65 - 99 mg/dL | EXTERNAL | | | Fasting | performed at [facility];[address] | | LAB | | | | [address];[place] | | | | | | [address] | | | | + + + + + + | BUN | 17Comment: Testing | 8 - 25 mg/dL | EXTERNAL | | | | performed at [facility];[address] | | LAB | | | | [address];[place] | | | | | | [address] | | | | + + + + + + | Creatinine | 0.86Comment: Testing | 0.70 - 1.30 | EXTERNAL | | | | performed at [facility];888 | mg/dL | LAB | | | | [address];[place] | | | | | | [address] | | | | + + + + + + | BUN/Creatin | 19Comment: Testing | | EXTERNAL | | | ine Ratio | performed at [facility];[address] | | LAB | | | | [address];[place] | | | | | | [address] | | | | + + + + + + | Calcium | 8.7Comment: Testing | 8.5 - 10.5 | EXTERNAL | | | | performed at [facility];888 | mg/dL | LAB | | | | [address];[place] | | | | | | [address] | | | | + + + + + + | Protein, | 6.9Comment: Testing | 6.3 - 8.2 g/dL | EXTERNAL | | | Total | performed at [facility];[address] | | LAB | | | | [address];[place] | | | | | | [address] | | | | + + + [...] [place] | | | | | | [address] | | | | + + + [...] | | Total | performed at [facility];[address] | | LAB | | | | [address];[place] | | | | | | [address] | | | | + + + + + + | ALP, | 106Comment: Testing | 35 - 115 U/L | EXTERNAL | | | External | performed at [facility];[address] | | LAB | | | | [address];[place] | | | | | | [address] | | | | + + + + + + | AST | 18Comment: Testing | 10 - 45 U/L | EXTERNAL | | | | performed at [facility];[address] | | LAB | | | | [address];[place] | | | | | | [address] | | | | + + + + + + | ALT | 21Comment: Testing | 10 - 65 U/L | EXTERNAL | | | | performed at [facility];[address] | | LAB | | | | [address];[place] | | | | | | [address] | | | | + + + [...] | | | | | at [facility];[address] | | | | | | [place] [address] | | | | + + + + + + | CK, Total | 170Comment: Testing | 55 - 400 U/L | EXTERNAL | | | | performed at [facility];[address] | | LAB | | | | [address];[place] | | | | | | [address] | | | | + + + [...] [place];[address] | | | | | | [address];[place] | | | | | | [address] | | | | + + + + + + | aPTT, | 27Comment: Testing | 23 - 32 seconds | EXTERNAL | | | Patient | performed at [facility];[address] | | LAB | | | | [address];[place] | | | | | | [address] | | | | + + + + + + | CK-MB | 3.2Comment: Testing | 0.5 - 3.6 ng/mL | EXTERNAL | | | | performed at [facility];[address] | | LAB | | | | [address];[place] | | | | | | [address] | | | | + + + [...] (500), | | | | | | senior technical editor Keyla Gregory | | | | [...]
--- OUTSIDE RECORDS SUMMARY | ~2019-09-09 | XMS | Encounter Summary ---
Demographics + + + | Address | [address] | | | [place] [address] | + + + | Home Phone [...] | Sammi Kohler | ECON | [place] [address] | | + + + + + Care Team Providers + +------+ + | Care Thermodynamicist Name | Role | Phone | + +------+ + PCP | Unavailable | + +------+ + Encounter Details +--------+ + + + + | Date | Type | Department | Care Team | Description | +--------+ + + + + | 03/02/ | [facility] | [facility] | Edenilson Chapman | GIB | | 2014 - | Encounter | MEDICAL CENTER | MD [address] | (gastrointestinal | | | | CLINICAL DECISION | [address] | bleeding); WARD | | 03/05/ | | [address] | [place] [address] | (obstructive sleep | | 2014 | | [place], [place] | [phone] | apnea); GI bleed; | | | | [address] | | Hematemesis; Rectal | | | | [phone] | | bleed; Accelerated | | | [...] Filed: 03/18/13 1059 Date of Service: 03/05/13 1115 Status: Signed Securities Adviser: Scott Martínez MD (Physician) Related Notes: Original Note by Scott Martínez MD (Physician) filed at 03/05/13 1118 [facility] Service: Hospitalist Physician Discharge Summary Patient ID: Norah Gr [id number] 57 y.o. 1955 Admit date: 03/02/2013 Discharge [...] the patie nt will be referred to [facility] and he will need to have endoscopic [...] understanding of same. We also talked to director case about possibility for a ne w transport from [facility] to [facility], as the caregiver will not be able to drive him and nee ded some help in that . Follow up: Lata Penaloza, SKID STRAPPER [address] [facility] [address] Schedule an appointment as soon as possible for a visit Howie Gibson MD [address] [facility] [address] Call in 1 week Secondary Discharge Diagnoses [...] - CHOLECYSTECTOMY; Surgeon: Jevon Vargas DO; Location: [facility] MAIN OR; Service: General; Laterality: N/A; Abdominal surgery Cholecystectomy Skin cancer excision 10/10/2012 Procedure: EXCISION - SKIN CANCER; Surgeon: Sy Fierro MD; Location: [facility] MA[facility] ; Service: Plastics; Laterality: Left; upper arm and upper back w/frozen section Esophagogastroduodenoscopy 03/03/2013 Procedure: ESOPHAGOGASTRODUODENOSCOPY; Surgeon: Howie Gibson MD; Location: [facility] ENDOSCOPY; S ervice: Gastroenterology; Laterality: N/A; Colonoscopy 03/04/2013 Procedure: COLONOSCOPY; Surgeon: Howie Gibson MD; Location: [facility] ENDOSCOPY; Service: Gastroe nterology; Laterality: N/A; Discharged [...] are the prescriptions that you need to continuous pickling line pickler helper. You may get these medications from any [...] 03/04/131805 Date of Service: 03/04/131740 Status: Signed Securities Adviser: Bong Ahn MD (Physician) [facility] Service: Hospitalist Progress Note Hospital Day: [...] SpO2: [93 %-98 %] 97 % (03/04 1519) FiO2 : [80 %] 80 % (03/04 1331) Physical Exam Vitals reviewed. Constitutional: He is [...] Patient will need endoscopic mucosal resection from [facility] facility. If this is a true nodule [...] the patient may be transferred to either [facility] or [facility] in [place]. However, the patient has a history of [...] Author: QUINN Wharton Service: (none) Author Type: Transportation Aid Filed: 03/04/13 1626 Date of Service: 03/04/13 1621 Status: Signed Securities Adviser: QUINN Wharton (Transportation Aid) Pt will receive NPO after MN colonoscopy and possible d/c to tomorrow 03/05/2013. onver ivana Transaction, Provider Unknown - 03/04/2013 2:34 PM PST Progress Notes by Sanjuanita Oliva RD, MARYCARMEN at 03/04/13 6068 Author: Sanjuanita Oliva RD, MARYCARMEN Service: (none) Author Type: Straddle Truck Driver Filed: 03/04/13 1442 Date of Service: 03/04/13 1434 Status: Signed Securities Adviser: Sanjuanita Oliva RD, CDE (Straddle Truck Driver) Pt with history of Type 2 diabetes on Lanuts and Novolog. Elevated blood sugars here - Rec ommend: Start on home dose of Lantus - 10 units at hs. Sanjuanita Oliva RD, MPH, CDE, Straddle Truck Driver 03/04/2013 2:36 PM onver ivana Transaction, Provider Unknown - 03/04/2013 8:25 AM PST Progress Notes by Gisele Curry PTA at 03/04/13824 Author: Gisele Curry PTA Service: (none) Author Type: Director Of Partner Marketing Filed: 03/04/13918 Date of Service: 03/04/13824 Status: Signed Securities Adviser: Gisele Curry PTA (Director Of Partner Marketing) 03/04/13824 PT Last Visit PT Received On 03/04/13 Reason for Treatment Other (comment) (rectal bleeds) Requires PT Follow Up No Follow up PT Only? No Assistance Required 1 person;Independent Whittling Room Operator Needed No Other Comments Comments Pt in [...] Nurse Filed: 03/04/13 0615 Date of Service: 03/04/13 0611 Status: Signed Securities Adviser: Sophia Gibson RN (Registered Nurse) Pt finished [...] PST Case Management by QUINN Lea at 03/03/13 1710 Author: QUINN Lea Service: (none) Author Type: Transportation Aid Filed: 03/03/131710 Date of Service: 03/03/131709 Status: Signed Securities Adviser: QUINN Lea (Transportation Aid) CM spoke with pt's RN regarding discharge needs. Per RN's report, she did not identify nee ds and feel that the pt does not need to be seen by CM at this time. I encouraged RN to ent er a CM consult as needs arise. Pt is DD, from [facility], plans to return if he is not transferred to [facility]. Dr. Gibson found e sophageal mass which may require transfer. QUINN Lea Ship Ceiler Bong Mei i, MD - 03/03/2013 2:00 PM PST Progress Notes by Bong Ahn MD at 03/03/13 1400 Author: Bong Ahn MD Service: (none) Author Type: Physician Filed: 03/03/131954 Date of Service: 03/03/13 1400 Status: Signed Securities Adviser: Bong Ahn MD (Physician) Related Notes: Original Note by Bong Ahn MD (Physician) filed at 03/03/13 14 09 [facility] Service: Hospitalist Progress Note Hospital Day: [...] Patient will need endoscopic mucosal resection from [facility]. If this is a true nodule - [...] the patient may be transferred to either [facility] or [facility] in [place] [facility] [employer]. However, the patient has a history of passing bright red blood through the rectum. Hence will need a colonoscopy as well. For that the patient wi ll get preparation, and tomorrow morning Dr. Gibson will perform a colonoscopy. Meanwhile the pa celinant will be on b.i.d. dose of Protonix. [...] Date of Service: 03/03/13 1117 Status: Signed Securities Adviser: Iliana Sosa RN (Registered Nurse) [facility] Handoff to [facility] [place] Ida Anguiano PT - 03/03/2013 9:45 AM PST Progress Notes by Ida Calvin PT at 03/03/13 0968 Author: Ida Calvin PT Service: (none) Author Type: Physical Therapist Filed: 03/03/13 0947 Date of Service: 03/03/1345 Status: Signed Securities Adviser: Ida Calvin, PT (Physical Therapist) 03/03/13 0900 [...] ensure safe mobility Prior Function Level of [place] Independent with ADLs;Independent with functional mobility;Assist wi [...] None Activity Tolerance Nurse Made Aware RN eMl muñoz in hallway observing pt's mobility Plan [...] 03/03/13203 Date of Service: 03/03/13203 Status: Signed Securities Adviser: Ema Walker RPH (Pharmacist) Clinical Pharmacy Note: Renal Monitoring Norah Gr 57 y.o. male Height: 175.3 cm Weight: 110.8 kg CREATININE: 1.38 mg/dL ABNORMAL (03/02/131844) Estimated creatinine clearance - Cockcroft-Gault CrCl: 71.6 mL/min Pharmacy dosing for renal function per Dr. Chapman. Currently, there are no medications needing to be adjusted. Pharmacy will continue to monit or for changes in medication orders and in renal function and adjust accordingly. Ema Walker PharmXander 03/03/2013 2:03 AM onver ivana Transaction, Provider Unknown - 03/02/2013 6:45 PM PST Case Management by QUINN White at 03/02/131844 Author: QUINN White Service: (none) Author Type: Transportation Aid Filed: 03/02/131844 Date of Service: 03/02/131844 Status: Signed Securities Adviser: QUINN White (Transportation Aid) [facility] alert [facility] pt with a total of 18 ED visits, referral to [facility] due to number of visits docume nted in this encounter H&P Notes Edenilson Chapman MD - 03/02/2013 11:16 PM PSTFormatting of this note might be dif ferent from the original. H&P by Edenilson Chapman MD at 03/02/13 2316 Author: Edenilson Chapman MD Service: Hospitalist Author Type: Physician Filed: 03/03/13 1325 Date of Service: 03/02/132315 Status: Signed Securities Adviser: Edenilson Chapman MD (Physician) Related Notes: Original Note by Edenilson Chapman MD (Physician) filed at 03/03/13 0405 [facility] Service: Hospitalist Admission History & Physical Date of Admission: 03/02/2013 Requesting Physician: [facility] Reason for Admission: GIB. History Obtained From: patient, mother CHIEF COMPLAINT: Rectal bleed and hematemesis. HISTORY OF PRESENT ILLNESS The patient is a 57 y.o. male with significant past medical history. The patient was brought in from [facility] for the chief complaint that he has [...] - CHOLECYSTECTOMY; Surgeon: Jevon Vargas DO; Location: [facility] MA[facility] OR; Service: General; Laterality: N/A; Abdominal surgery Cholecystectomy Skin cancer excision 10/10/2012 Procedure: EXCISION - SKIN CANCER; Surgeon: Sy Fierro MD; Location: [facility] MA[facility] ; Service: Plastics; Laterality: Left; [...] Narrative Lives in halfway, IADL, full code PHYSICAL EXAM Vital Signs: [...] Code Status: Full Code. Primary Care Physician: LATA CHAPMAN MD 03/02/2013 documente d in this encounter Procedure Notes Howie Gibson MD - 03/04/2013 1:33 PM PSTFormatting of this note might be different from the bobbi ginal. Procedures by Howie Gibson MD at 03/04/13 6482 Author: Howie Gibson MD Service: Gastroenterology Author Type: Physician Filed: 03/04/13 6424 Date of Service: 03/04/13 1333 Status: Signed Securities Adviser: Howie Gibson MD (Physician) Procedure Orders: 1. Case Request Operating Room: COLONOSCOPY [[id number]] ordered by Howie Gibson MD at 03/03/13 11 24 [facility] Service: Gastroenterology ENDOSCOPY SUITE PROCEDURE NOTE [...] Procedures by Howie Gibson MD at 03/03/13 8018 Author: Howie Gibson MD Service: Gastroenterology Author Type: Physician Filed: 03/03/13 1121 Date of Service: 03/03/13 110 Status: Addendum Securities Adviser: Howie Gibson MD (Physician) Related Notes: Original Note by Howie Gibson MD (Physician) filed at 03/03/13 1113 Procedure Orders: 1. Case Request Operating Room: ESOPHAGOGASTRODUODENOSCOPY [[id number]] ordered by Howie Gibson MD at 03/03/13 0711 [facility] Service: Gastroenterology ENDOSCOPY SUITE PROCEDURE NOTE [...] Patient will need endoscopic mucosal resection from [facility]. If this is a true nodule - [...] ginal. Consult* by Howie Gibson MD at 03/03/1370 Author: Howie Gibson MD Service: Gastroenterology Author Type: Physician Filed: 03/03/13 0946 Date of Service: 03/03/13937 Status: Addendum Securities Adviser: Howie Gibson MD (Physician) Related Notes: Original Note by Howie Gibson MD (Physician) filed at 03/03/13 1103 [facility] Service: Gastroenterology Initial Consult Note Date [...] - CHOLECYSTECTOMY; Surgeon: Jevon Vargas DO; Location: [facility] MA[facility] OR; Service: General; Laterality: N/A; Abdominal surgery Cholecystectomy Skin cancer excision 10/10/2012 Procedure: EXCISION - SKIN CANCER; Surgeon: Sy Fierro MD; Location: [facility] ; Service: Plastics; Laterality: Left; [...] Narrative Lives in halfway, IADL, full code No Known Allergies Family [...] Code Status: Full Code Primary Care Physician: LATA PENALOZA Thank you for allowing me to participate [...] 03/02/132054 Date of Service: 03/02/132054 Status: Signed Securities Adviser: Joy Connors RN (Registered Nurse) Answered pt's [...] 1442 Date of Service: 03/02/131933 Status: Signed Securities Adviser: Yesica Flowers DO (Physician) [facility] Department of Emergency Medicine 03/02/2013 History of Present Illness Patient Identification Norah Gr is a 57 y.o. male. Patient information was obtained from patient and caregiver / friend. History/Exam limitations: none. Patient presented to the Emergency Department by: [facility] 1724 Chief Complaint Chief Complaint Patient presents [...] history of HTN. Pt is in a halfway due to his general health and his [...] - CHOLECYSTECTOMY; Surgeon: Jevon Vargas DO; Location: [facility]; Service: General; Laterality: N/A; Abdominal surgery Cholecystectomy Skin cancer excision 10/10/2012 Procedure: EXCISION - SKIN CANCER; Surgeon: Sy Fierro MD; Location: [facility] ; Service: Plastics; Laterality: Left; [...] ENT: Ears normal Nose normal Pharynx normal [place] and moist mucous membranes Neck: Normal inspection Supple Full ROM Cardiovascular: Normal rate and rhythm Respiratory: No respiratory distress or wheezing, lungs are clear Abdomen: Soft, non-tender, non-distended, hyperactive bowel sounds Rectal: GUAIAC positive, burgundy colored stool, QC passed, male electric tape slitter present Back: Normal inspection, moves without difficulty [...] started. 01:39. Unable to reach Dr. Gibson, cotton acreage measurer for GI (this is very unusual for [...] Procedure Component Value Ref Range Date/Time PT [[id number]] Collected:03/02/131845 Order Status:Completed Updated:03/02/132029 Specimen Information:Blood INR 1.0 PTT [[id number]] Collected:03/02/131845 Order Status:Completed Updated:03/02/132029 Specimen Information:Blood APTT 26 23 - 32 seconds Complete Metabolic Panel [[id number]] (Abnormal) Collected:03/02/131844 Order Status:Completed Updated:03/02/131909 Specimen Information:Blood [...] (L) >60 mL/min/1.73m2 CBC w Auto Diff [[id number]] (Abnormal) Collected:03/02/131844 Order Status:Completed Updated:03/02/131853 Specimen Information:Blood [...] scribe has been reviewed and validated by meSalty laughlin with its contents. DO Yesica Driscoll DO 03/03/13 1442 onversion Transacti on, Provider Unknown - 03/02/2013 7:00 PM PSTFormatting of this note might be different fro m the original. ED Notes by Kenny Holliday RN at 03/02/131899 Author: Kenny Holliday RN Service: (none) Author Type: Registered Nurse Filed: 03/02/131901 Date of Service: 03/02/131899 Status: Signed Securities Adviser: Kenny Holliday RN (Registered Nurse) Pt reports [...] 03/02/131836 Date of Service: 03/02/131836 Status: Signed Securities Adviser: Todd Duarte RN (Registered Nurse) Bed:09
Expected date:
Expected time:
Means of arrival:
Comments:
onver ivana Transaction, Provider Unknown - 03/02/2013 6:35 PM PST ED Notes by Joy Connors RN at 03/02/131834 Author: Joy Connors RN Service: (none) Author Type: Registered Nurse Filed: 03/02/131835 Date of Service: 03/02/131834 Status: Signed Securities Adviser: Joy Connors RN (Registered Nurse) Pt came in this evening from [facility] for rectal bleeding and blood in his [...] | | 2019 | Visit | | [employer] [address] | | | | | | [address] [place], | | | | | | [place] [address] | | | | | | [phone] | | | | | | | | +--------+---------+ + + + | 09/29/ | Office | Urology | Mireya Pack, | | | 2019 | Visit | | [facility] [facility] [address] | | | | | | [address] [place], | | | | | | [place] [address] | | | | | | [phone] | | | | | | | | | | | | [place], | | | | | | [address] | | | | | | [place] [address] | | | | | | [phone] | | | | | | | [...] | | Fingerstick | performed at [facility];[address] | | LAB | | | | [address];[place], [place] | | | | | | [address] | | | | + + + + + + + + | Specimen | + + | | + + + +---------+ + + | Performing | Address | City/State/Zipcode | Phone Number | | Organization | | | | + +---------+ + + | EXTERNAL LAB | | | | + +---------+ + + External Lab: [facility]E (03/05/2013 5:15 AM PST) + + + [...] | | | | | [place] [address] | | | | + + + + + + | Non- | 4.87Comment: Testing | 4.20 - 5.70 | EXTERNAL | | | Red Blood | performed at [facility], [address] | M/uL | LAB | | | Cells | [address], | | | | | Counted | [place] [address] | | | | + + + + + + | Hemoglobin | 12.9 (L)Comment: Testing | 13.2 - 17.0 | EXTERNAL | | | | performed at [facility], [address] | g/dL | LAB | | | | [address], | | | | | | [place] [address] | | | | + + + + + + | Hematocrit, | 40.4Comment: Testing | 39.0 - 50.0 % | EXTERNAL | | | POC | performed at [facility], [address] | | LAB | | | | [address], | | | | | | [place] [address] | | | | + + + + + + | MCV | 82.9Comment: Testing | 80.0 - 100.0 fl | EXTERNAL | | | | performed at [facility], [address] | | LAB | | | | [address], | | | | | | [place] [address] | | | | + + + + + + | MCH | 26.4 (L)Comment: Testing | 27.0 - 34.0 pg | EXTERNAL | | | | performed at [facility], [address] | | LAB | | | | [address], | | | | | | [place] [address] | | | | + + + + + + | MCHC | 31.8 (L)Comment: Testing | 32.0 - 35.5 | EXTERNAL | | | | performed at [facility], [address] | g/dL | LAB | | | | [address], | | | | | | [place] [address] | | | | + + + + + + | RDW-CV | 45.9Comment: Testing | 37 - 53 fl | EXTERNAL | | | | performed at [facility], [address] | | LAB | | | | [address], | | | | | | [place] [address] | | | | + + + + + + | Platelet | 230Comment: Testing | 150 - 400 K/uL | EXTERNAL | | | Count | performed at [facility], [address] | | LAB | | | Plasma | [address], | | | | | | [place] [address] | | | | + + + + + + | MPV | 7.8Comment: Testing | fl | EXTERNAL | | | | performed at [facility], [address] | | LAB | | | | [address], | | | | | | [place] [address] | | | | + + + + + + | Differentia | AUTOMATEDComment: | | EXTERNAL | | | l Type | Testing performed at | | LAB | | | | [facility], [address] | | | | | | [address], [place] | | | | | | [address] | | | | + + + [...] EXTERNAL | | | | performed at [facility], [address] | | LAB | | | | [address], | | | | | | [place] [address] | | | | + + + [...] EXTERNAL | | | | performed at [facility], [address] | | LAB | | | | [address] [facility], | | | | | | [place] [address] | | | | + + + [...] | | | | | [place] [address] | | | | + + + + + + | K | 3.9Comment: Testing | 3.5 - 4.9 | EXTERNAL | | | | performed at [facility], [address] | mmol/L | LAB | | | | [address], | | | | | | [place] [address] | | | | + + + + + + | Cl | 107Comment: Testing | 99 - 109 mmol/L | EXTERNAL | | | | performed at [facility], [address] | | LAB | | | | [address], | | | | | | [place] [address] | | | | + + + + + + | CO2 | 26Comment: Testing | 23 - 32 mmol/L | EXTERNAL | | | | performed at [facility], [address] | | LAB | | | | [address], | | | | | | [place] [address] | | | | + + + + + + | Anion Gap | 10Comment: Testing | 5 - 20 mmol/L | EXTERNAL | | | | performed at [facility], [address] | | LAB | | | | [address], | | | | | | [place] [address] | | | | + + + + + + | Glucose, | 138 (H)Comment: Testing | 65 - 99 mg/dL | EXTERNAL | | | Fasting | performed at [facility], [address] | | LAB | | | | [address], | | | | | | [place] [address] | | | | + + + + + + | BUN | 13Comment: Testing | 8 - 25 mg/dL | EXTERNAL | | | | performed at [facility], [address] | | LAB | | | | [address], | | | | | | [place] [address] | | | | + + + + + + | Creatinine | 1.01Comment: Testing | 0.70 - 1.30 | EXTERNAL | | | | performed at [facility], [address] | mg/dL | LAB | | | | [address], | | | | | | [place] [address] | | | | + + + + + + | BUN/Creatin | 13Comment: Testing | | EXTERNAL | | | ine Ratio | performed at [facility], [address] | | LAB | | | | [address], | | | | | | [place] [address] | | | | + + + + + + | Calcium | 9.0Comment: Testing | 8.5 - 10.2 | EXTERNAL | | | | performed at [facility], [address] | mg/dL | LAB | | | | [address], | | | | | | [place] [address] | | | | + + + + + + | Protein, | 6.1 (L)Comment: Testing | 6.3 - 8.2 g/dL | EXTERNAL | | | Total | performed at [facility], [address] | | LAB | | | | [address], | | | | | | [place] [address] | | | | + + + + + + | Albumin | 3.4 (L)Comment: Testing | 3.6 - 5.0 g/dL | EXTERNAL | | | | performed at [facility], [address] | | LAB | | | | [address], | | | | | | [place] [address] | | | | + + + + + + | Globulin | 2.7Comment: Testing | 1.3 - 4.9 g/dL | EXTERNAL | | | | performed at [facility], [address] | | LAB | | | [address], | | | | | | [place] [address] | | | | + + + + + + | A/G Ratio | 1.3Comment: Testing | 1.0 - 2.4 | EXTERNAL | | | | performed at [facility], [address] | | LAB | | | | [address], | | | | | | [place] [address] | | | | + + + + + + | Bilirubin | 0.4Comment: Testing | 0.1 - 1.5 mg/dL | EXTERNAL | | | Total | performed at [facility], [address] | | LAB | | | | [address], | | | | | | [place] [address] | | | | + + + + + + | ALP, | 70Comment: Testing | 35 - 115 U/L | EXTERNAL | | | External | performed at [facility], [address] | | LAB | | | | [address], | | | | | | [place] [address] | | | | + + + + + + | AST | 20Comment: Testing | 10 - 45 U/L | EXTERNAL | | | | performed at [facility], [address] | | LAB | | | | [address], | | | | | | [place] [address] | | | | + + + + + + | ALT | 18Comment: Testing | 10 - 65 U/L | EXTERNAL | | | | performed at [facility], [address] | | LAB | | | | [address], | | | | | | [place] [address] | | | | + + + [...] | | | | | | at [facility], [address] | | | | | | [address], | | | | | | [place] [address] | | | | + + + [...] | | | | performed at [facility];[address] | | | | | | [address];[place], [place] | | | | | | [address] | | | | + + + [...] | | Fingerstick | performed at [facility];[address] | | LAB | | | [address];[place], [place] | | | | | | [address] | | | | + + + [...] | | Fingerstick | performed at [facility];[address] | | LAB | | | | [address];[place], [place] | | | | | | [address] | | | | + + + [...] | | Fingerstick | performed at [facility];[address] | | LAB | | | | [address];[place], [place] | | | | | | [address] | | | | + + + + + + + + | Specimen | + + | | + + + +---------+ + + | Performing | Address | City/State/Zipcode | Phone Number | | Organization | | | | + +---------+ + + | EXTERNAL LAB | | | | + +---------+ + + External Lab: [facility] (03/04/2013 5:07 AM PST) + + + [...] | | | | | [place] [address] | | | | + + + + + + | Non- | 5.05Comment: Testing | 4.20 - 5.70 | EXTERNAL | | | Red Blood | performed at [facility], [address] | M/uL | LAB | | | Cells | [address], | | | | | Counted | [place] [address] | | | | + + + + + + | Hemoglobin | 13.1 (L)Comment: Testing | 13.2 - 17.0 | EXTERNAL | | | | performed at [facility], [address] | g/dL | LAB | | | | [address], | | | | | | [place] [address] | | | | + + + + + + | Hematocrit, | 41.6Comment: Testing | 39.0 - 50.0 % | EXTERNAL | | | POC | performed at [facility], [address] | | LAB | | | | [address], | | | | | | [place] [address] | | | | + + + + + + | MCV | 82.4Comment: Testing | 80.0 - 100.0 fl | EXTERNAL | | | | performed at [facility], [address] | | LAB | | | | [address], | | | | | | [place] [address] | | | | + + + + + + | MCH | 26.0 (L)Comment: Testing | 27.0 - 34.0 pg | EXTERNAL | | | | performed at [facility], [address] | | LAB | | | | [address], | | | | | | [place] [address] | | | | + + + + + + | MCHC | 31.5 (L)Comment: Testing | 32.0 - 35.5 | EXTERNAL | | | | performed at [facility], [address] | g/dL | LAB | | | | [address], | | | | | | [place] [address] | | | | + + + + + + | RDW-CV | 44.6Comment: Testing | 37 - 53 fl | EXTERNAL | | | | performed at [facility], [address] | | LAB | | | | [address], | | | | | | [place] [address] | | | | + + + + + + | Platelet | 220Comment: Testing | 150 - 400 K/uL | EXTERNAL | | | Count | performed at [facility], [address] | | LAB | | | Plasma | [address], | | | | | | [place] [address] | | | | + + + + + + | MPV | 7.8Comment: Testing | fl | EXTERNAL | | | | performed at [facility], [address] | | LAB | | | | [address], | | | | | | [place] [address] | | | | + + + + + + | Differentia | AUTOMATEDComment: | | EXTERNAL | | | l Type | Testing performed at | | LAB | | | | [facility], [address] | | | | | | [place] | | | | | | [address] | | | | + + + [...] EXTERNAL | | | | performed at [facility], [address] | | LAB | | | | [address], | | | | | | [place] [address] | | | | + + + [...] | | | | | [place] [address] | | | | + + + [...] | | | | | [place] [address] | | | | + + + + + + | K | 3.4 (L)Comment: Testing | 3.5 - 4.9 | EXTERNAL | | | | performed at [facility], [address] | mmol/L | LAB | | | | [address], | | | | | | [place] [address] | | | | + + + + + + | Cl | 106Comment: Testing | 99 - 109 mmol/L | EXTERNAL | | | | performed at [facility], [address] | | LAB | | | | [address], | | | | | | [place] [address] | | | | + + + + + + | CO2 | 27Comment: Testing | 23 - 32 mmol/L | EXTERNAL | | | | performed at [facility], [address] | | LAB | | | | [address], | | | | | | [place] [address] | | | | + + + + + + | Anion Gap | 5Comment: Testing | 5 - 20 mmol/L | EXTERNAL | | | | performed at [facility], [address] | | LAB | | | | [address], | | | | | | [place] [address] | | | | + + + + + + | Glucose, | 189 (H)Comment: Testing | 65 - 99 mg/dL | EXTERNAL | | | Fasting | performed at [facility], [address] | | LAB | | | | [address], | | | | | | [place] [address] | | | | + + + + + + | BUN | 10Comment: Testing | 8 - 25 mg/dL | EXTERNAL | | | | performed at [facility], [address] | | LAB | | | | [address], | | | | | | [place] [address] | | | | + + + + + + | Creatinine | 0.90Comment: Testing | 0.70 - 1.30 | EXTERNAL | | | | performed at [facility], [address] | mg/dL | LAB | | | | [address], | | | | | | [place] [address] | | | | + + + + + + | BUN/Creatin | 11Comment: Testing | | EXTERNAL | | | ine Ratio | performed at [facility], [address] | | LAB | | | | [address], | | | | | | [place] [address] | | | | + + + + + + | Calcium | 8.9Comment: Testing | 8.5 - 10.2 | EXTERNAL | | | | performed at [facility], [address] | mg/dL | LAB | | | | [address], | | | | | | [place] [address] | | | | + + + + + + | Protein, | 6.5Comment: Testing | 6.3 - 8.2 g/dL | EXTERNAL | | | Total | performed at [facility], [address] | | LAB | | | | [address], | | | | | | [place] [address] | | | | + + + + + + | Albumin | 3.7Comment: Testing | 3.6 - 5.0 g/dL | EXTERNAL | | | | performed at [facility], [address] | | LAB | | | | [address], | | | | | | [place] [address] | | | | + + + + + + | Globulin | 2.8Comment: Testing | 1.3 - 4.9 g/dL | EXTERNAL | | | | performed at [facility], [address] | | LAB | | | | [address], | | | | | | [place] [address] | | | | + + + + + + | A/G Ratio | 1.3Comment: Testing | 1.0 - 2.4 | EXTERNAL | | | | performed at [facility], [address] | | LAB | | | | [address], | | | | | | [place] [address] | | | | + + + + + + | Bilirubin | 0.5Comment: Testing | 0.1 - 1.5 mg/dL | EXTERNAL | | | Total | performed at [facility], [address] | | LAB | | | | [address], | | | | | | [place] [address] | | | | + + + + + + | ALP, | 68Comment: Testing | 35 - 115 U/L | EXTERNAL | | | External | performed at [facility], [address] | | LAB | | | | [address], | | | | | | [place] [address] | | | | + + + + + + | AST | 27Comment: Testing | 10 - 45 U/L | EXTERNAL | | | | performed at [facility], [address] | | LAB | | | | [address], | | | | | | [place] [address] | | | | + + + + + + | ALT | 26Comment: Testing | 10 - 65 U/L | EXTERNAL | | | | performed at [facility], [address] | | LAB | | | | [address], | | | | | | [place] [address] | | | | + + + [...] | | | | | | at [facility], [address] | | | | | | [address], | | | | | | [place] [address] | | | | + + + [...] At | + + + | CASE: [id number] PATIENT: NORAH GR Surgical Pathology Report | [...] specimen is received in formalin labeled "Norah Gr" and | | | designated "Rectal ulcer" [...] | | | | | [place] [address] | | | | + + + + + + | Non- | 4.46Comment: Testing | 4.20 - 5.70 | EXTERNAL | | | Red Blood | performed at [facility], [address] | M/uL | LAB | | | Cells | [address], | | | | | Counted | [place] [address] | | | | + + + + + + | Hemoglobin | 12.5 (L)Comment: Testing | 13.2 - 17.0 | EXTERNAL | | | | performed at [facility], [address] | g/dL | LAB | | | | [address], | | | | | | [place] [address] | | | | + + + + + + | Hematocrit, | 36.6 (L)Comment: Testing | 39.0 - 50.0 % | EXTERNAL | | | POC | performed at [facility], [address] | | LAB | | | | [address], | | | | | | [place] [address] | | | | + + + + + + | MCV | 82.2Comment: Testing | 80.0 - 100.0 fl | EXTERNAL | | | | performed at [facility], [address] | | LAB | | | | [address], | | | | | | [place] [address] | | | | + + + + + + | MCH | 28.0Comment: Testing | 27.0 - 34.0 pg | EXTERNAL | | | | performed at [facility], [address] | | LAB | | | | [address], | | | | | | [place] [address] | | | | + + + + + + | MCHC | 34.0Comment: Testing | 32.0 - 35.5 | EXTERNAL | | | | performed at [facility], [address] | g/dL | LAB | | | | [address], | | | | | | [place] [address] | | | | + + + + + + | RDW-CV | 45.9Comment: Testing | 37 - 53 fl | EXTERNAL | | | | performed at [facility], [address] | | LAB | | | | [address], | | | | | | [place] [address] | | | | + + + + + + | Platelet | 217Comment: Testing | 150 - 400 K/uL | EXTERNAL | | | Count | performed at [facility], [address] | | LAB | | | Plasma | [address], | | | | | | [place] [address] | | | | + + + + + + | MPV | 7.7Comment: Testing | fl | EXTERNAL | | | | performed at [facility], [address] | | LAB | | | | [address], | | | | | | [place] [address] | | | | + + + + + + | Differentia | AUTOMATEDComment: | | EXTERNAL | | | l Type | Testing performed at | | LAB | | | | [facility], [address] | | | | | | [place] | | | | | | [address] | | | | + + + [...] EXTERNAL | | | | performed at [facility], [address] | uIU/mL | LAB | | | | [address], | | | | | | [place] [address] | | | | + + + [...] EXTERNAL | | | | performed at [facility], [address] | | LAB | | | | [address], | | | | | | [place] [address] | | | | + + + [...] EXTERNAL | | | | performed at [facility], [address] | | LAB | | | | [address], | | | | | | [place] [address] | | | | + + + [...] | EXTERNAL | | | A1c | Vincentian Diabetes | | LAB | | | [...] | | | | | performed at [facility], [address] | | | | | | [address], | | | | | | [place] [address] | | | | + + + [...] | | | | | performed at [facility], [address] | | | | | | [facility], | | | | | | [place] [address] | | | | + + + [...] [address], | | | | | | [place] [address] | | | | + + + + + + | Triglycerid | 141Comment: Testing | mg/dL | EXTERNAL | | | es | performed at [facility], [address] | | LAB | | | | [address], | | | | | | [place] [address] | | | | + + + + + + | HDL | 24 (L)Comment: Testing | mg/dL | EXTERNAL | | | | performed at [facility], [address] | | LAB | | | [address], | | | | | | [place] [address] | | | | + + + + + + | LDL, | 66Comment: Testing | mg/dL | EXTERNAL | | | Calculated | performed at [facility], [address] | | LAB | | | | [address], | | | | | | [place] [address] | | | | + + + [...] | | | | | [place] [address] | | | | + + + + + + | K | 3.8Comment: Testing | 3.5 - 4.9 | EXTERNAL | | | | performed at [facility], [address] | mmol/L | LAB | | | | [address], | | | | | | [place] [address] | | | | + + + + + + | Cl | 104Comment: Testing | 99 - 109 mmol/L | EXTERNAL | | | | performed at [facility], [address] | | LAB | | | | [address], | | | | | | [place] [address] | | | | + + + + + + | CO2 | 27Comment: Testing | 23 - 32 mmol/L | EXTERNAL | | | | performed at [facility], [address] | | LAB | | | | [address], | | | | | | [place] [address] | | | | + + + + + + | Anion Gap | 10Comment: Testing | 5 - 20 mmol/L | EXTERNAL | | | | performed at [facility], [address] | | LAB | | | | [address], | | | | | | [place] [address] | | | | + + + + + + | Glucose, | 208 (H)Comment: Testing | 65 - 99 mg/dL | EXTERNAL | | | Fasting | performed at [facility], [address] | | LAB | | | | [address], | | | | | | [place] [address] | | | | + + + + + + | BUN | 15Comment: Testing | 8 - 25 mg/dL | EXTERNAL | | | | performed at [facility], [address] | | LAB | | | | [address], | | | | | | [place] [address] | | | | + + + + + + | Creatinine | 1.08Comment: Testing | 0.70 - 1.30 | EXTERNAL | | | | performed at [facility], [address] | mg/dL | LAB | | | | [address], | | | | | | [place] [address] | | | | + + + + + + | BUN/Creatin | 14Comment: Testing | | EXTERNAL | | | ine Ratio | performed at [facility], [address] | | LAB | | | | [address], | | | | | | [place] [address] | | | | + + + + + + | Calcium | 8.6Comment: Testing | 8.5 - 10.2 | EXTERNAL | | | | performed at [facility], [address] | mg/dL | LAB | | | | [address], | | | | | | [place] [address] | | | | + + + + + + | Protein, | 6.1 (L)Comment: Testing | 6.3 - 8.2 g/dL | EXTERNAL | | | Total | performed at [facility], [address] | | LAB | | | | [address], | | | | | | [place] [address] | | | | + + + + + + | Albumin | 3.4 (L)Comment: Testing | 3.6 - 5.0 g/dL | EXTERNAL | | | | performed at [facility], [address] | | LAB | | | | [address], | | | | | | [place] [address] | | | | + + + + + + | Globulin | 2.7Comment: Testing | 1.3 - 4.9 g/dL | EXTERNAL | | | | performed at [facility], [address] | | LAB | | | | [address], | | | | | | [place] [address] | | | | + + + + + + | A/G Ratio | 1.3Comment: Testing | 1.0 - 2.4 | EXTERNAL | | | | performed at [facility], [address] | | LAB | | | | [address], | | | | | | [place] [address] | | | | + + + + + + | Bilirubin | 0.4Comment: Testing | 0.1 - 1.5 mg/dL | EXTERNAL | | | Total | performed at [facility], [address] | | LAB | | | | [address], | | | | | | [place] [address] | | | | + + + + + + | ALP, | 62Comment: Testing | 35 - 115 U/L | EXTERNAL | | | External | performed at [facility], [address] | | LAB | | | | [address], | | | | | | [place] [address] | | | | + + + + + + | AST | 23Comment: Testing | 10 - 45 U/L | EXTERNAL | | | | performed at [facility], [address] | | LAB | | | | [address], | | | | | | [place] [address] | | | | + + + + + + | ALT | 22Comment: Testing | 10 - 65 U/L | EXTERNAL | | | | performed at [facility], [address] | | LAB | | | | [address] [facility], | | | | | | [place] [address] | | | | + + + [...] | | | | | | at [facility], [address] | | | | | | [address] [facility], | | | | | | [place] [address] | | | | + + + [...] LAB | | | | Blvd;[place] [address] | | | | + + + + + + | Antibody | NEGATIVE | | EXTERNAL | | | Screen | | | LAB | | + + + + + + | Antibody | Testing performed at | | EXTERNAL | | | Screen | [facility] | | LAB | | | | [address];[place] [address] | | | | + + + + + + | BB BAND | [id number] | | EXTERNAL | | | | | | LAB | | + + + + + + | BB BAND | Testing performed at | | EXTERNAL | | | | [facility];[address] | | LAB | | | | Blvd;[place] [address] | | | | + + + [...] | | Fingerstick | performed at [facility];[address] | | LAB | | | | [address];[place], [place] | | | | | | [address] | | | | + + + [...] | | Patient | performed at [facility];[address] | | LAB | | | | [address];[place] | | | | | | [address] | | | | + + + [...] | | | | performed at [facility] | | | | | | [facility] [facility], [place] | | | | | | [address] | | | | + + + [...] | | | | performed at [facility];[address] | | LAB | | | | [address];[place] | | | | | | [address] | | | | + + + + + + | Non- | 5.03Comment: Testing | 4.20 - 5.70 | EXTERNAL | | | Red Blood | performed at [facility];[address] | M/uL | LAB | | | Cells | [address];[place] | | | | | Counted | [address] | | | | + + + + + + | Hemoglobin | 14.0Comment: Testing | 13.2 - 17.0 | EXTERNAL | | | | performed at [facility];[address] | g/dL | LAB | | | | [address];[place] | | | | | | [address] | | | | + + + + + + | Hematocrit, | 41.1Comment: Testing | 39.0 - 50.0 % | EXTERNAL | | | POC | performed at [facility];[address] | | LAB | | | | [address];[place] | | | | | | [address] | | | | + + + + + + | MCV | 81.9Comment: Testing | 80.0 - 100.0 fl | EXTERNAL | | | | performed at [facility];[address] | | LAB | | | | [address];[place] | | | | | | [address] | | | | + + + + + + | MCH | 27.8Comment: Testing | 27.0 - 34.0 pg | EXTERNAL | | | | performed at [facility];[address] | | LAB | | | | [address];[place] | | | | | | [address] | | | | + + + + + + | MCHC | 33.9Comment: Testing | 32.0 - 35.5 | EXTERNAL | | | | performed at [facility];[address] | g/dL | LAB | | | | [address];[place] | | | | | | [address] | | | | + + + + + + | RDW-CV | 46.4Comment: Testing | 37 - 53 fl | EXTERNAL | | | | performed at [facility];[address] | | LAB | | | | [address];[place] | | | | | | [address] | | | | + + + + + + | Platelet | 289Comment: Testing | 150 - 400 K/uL | EXTERNAL | | | Count | performed at [facility];[address] | | LAB | | | Plasma | [address];[place] | | | | | | [address] | | | | + + + + + + | MPV | 7.8Comment: Testing | fl | EXTERNAL | | | | performed at [facility];[address] | | LAB | | | | [address];[place] | | | | | | [address] | | | | + + + + + + | Differentia | AUTOMATEDComment: | | EXTERNAL | | | l Type | Testing performed at | | LAB | | | | [facility] | | | | | | [address];[place] [address] | | | | + + [...] | | | | performed at [facility];[address] | mmol/L | LAB | | | | [address];[place] | | | | | | [address] | | | | + + + + + + | K | 3.9Comment: Testing | 3.5 - 4.9 | EXTERNAL | | | | performed at [facility];[address] | mmol/L | LAB | | | | [address];[place] | | | | | | [address] | | | | + + + + + + | Cl | 102Comment: Testing | 99 - 109 mmol/L | EXTERNAL | | | | performed at [facility];[address] | | LAB | | | | [address];[place] | | | | | | [address] | | | | + + + + + + | CO2 | 32Comment: Testing | 23 - 32 mmol/L | EXTERNAL | | | | performed at [facility];[address] | | LAB | | | | [address];[place] | | | | | | [address] | | | | + + + + + + | Anion Gap | 9Comment: Testing | 5 - 20 mmol/L | EXTERNAL | | | | performed at [facility];[address] | | LAB | | | | [address];[place] | | | | | | [address] | | | | + + + + + + | Glucose, | 160 (H)Comment: Testing | 65 - 99 mg/dL | EXTERNAL | | | Fasting | performed at [facility];[address] | | LAB | | | | [address];[place] | | | | | | [address] | | | | + + + + + + | BUN | 18Comment: Testing | 8 - 25 mg/dL | EXTERNAL | | | | performed at [facility];[address] | | LAB | | | | [address];[place] | | | | | | [address] | | | | + + + + + + | Creatinine | 1.38 (H)Comment: Testing | 0.70 - 1.30 | EXTERNAL | | | | performed at [facility];[address] | mg/dL | LAB | | | | [address];[place] | | | | | | [address] | | | | + + + + + + | BUN/Creatin | 13Comment: Testing | | EXTERNAL | | | ine Ratio | performed at [facility];[address] | | LAB | | | | [address];[place] | | | | | | [address] | | | | + + + + + + | Calcium | 9.0Comment: Testing | 8.5 - 10.2 | EXTERNAL | | | | performed at [facility];[address] | mg/dL | LAB | | | | [address];[place] | | | | | | [address] | | | | + + + + + + | Protein, | 7.8Comment: Testing | 6.3 - 8.2 g/dL | EXTERNAL | | | Total | performed at [facility];[address] | | LAB | | | | [address];[place] | | | | | | [address] | | | | + + + + + + | Albumin | 3.6Comment: Testing | 3.6 - 5.0 g/dL | EXTERNAL | | | | performed at [facility];[address] | | LAB | | | | [address];[place] | | | | | | [address] | | | | + + + + + + | Globulin | 4.3Comment: Testing | 1.3 - 4.9 g/dL | EXTERNAL | | | | performed at [facility];[address] | | LAB | | | | [address];[place] | | | | | | [address] | | | | + + + + + + | A/G Ratio | 0.8 (L)Comment: Testing | 1.0 - 2.4 | EXTERNAL | | | | performed at [facility];[address] | | LAB | | | | [address];[place] | | | | | | [address] | | | | + + + + + + | Bilirubin | 0.3Comment: Testing | 0.1 - 1.5 mg/dL | EXTERNAL | | | Total | performed at [facility];[address] | | LAB | | | | [address];[place] | | | | | | [address] | | | | + + + + + + | ALP, | 102Comment: Testing | 35 - 115 U/L | EXTERNAL | | | External | performed at [facility];[address] | | LAB | | | | [address];[place] | | | | | | [address] | | | | + + + + + + | AST | 33Comment: Testing | 10 - 45 U/L | EXTERNAL | | | | performed at [facility];[address] | | LAB | | | | [address];[place] | | | | | | [address] | | | | + + + + + + | ALT | 35Comment: Testing | 10 - 65 U/L | EXTERNAL | | | | performed at [facility];[address] | | LAB | | | | [address];[place] | | | | | | [address] | | | | + + + [...] | | | | | at [facility];[address] | | | | | [address];[place] [address] | | | | + + + [...] | | | | | purchasing expeditor SANYA ALDANA (8) | | | | [...]
--- OUTSIDE RECORDS SUMMARY | ~2019-09-09 | XMS | Encounter Summary ---
Demographics + + + | Address | [address] | | | [place] [address] | + + + | Home Phone [...] + | Sammi Kohler | ECON | [place] [address] | | + + + + + Care Team Providers + +------+ + | Care Community Leader Name | Role | Phone | + +------+ + PCP | Unavailable | + +------+ + Encounter Details +--------+ + + + + | Date | Type | Department | Care Team | Description | +--------+ + + + + | 11/23/ | Emergency | [facility] | Norah Barker MD | Non-cardiac chest | | 2012 | | MEDICAL CENTER | [address] | pain; Diabetes | | | | EMERGENCY CENTER | [place] [address] | mellitus (HCC); | | | | [address] | [phone] | Renal insufficiency | | | | [place], [place] | | | | | | [address] | | | | | | [phone] | | | +--------+ + + + [...] 11/24/11543 Date of Service: 11/24/11543 Status: Signed Equine Vet: Leslie Velazquez RN (Registered Nurse) Dr. Barker at bedside. Leslie Velazquez RN 11/24/11543 hNorah redding MD - 11/24/2011 5:42 AM PDTFormatting of this note might be different from the or iginal. ED Provider Notes by Norah Barker MD at 11/24/11541 Author: Norah Barker MD Service: (none) Author Type: Physician Filed: 11/24/1104 Date of Service: 11/24/11541 Status: Signed Equine Vet: Norah Barker MD (Physician) [facility] Department of Emergency Medicine History of [...] troponin. Patient will be placed on the threat monitoring analyst to ensure no life thre atening arrhythmia [...] Component Value Ref Range Date/Time Cardiac Panel [[id number]] (Abnormal) Collected:11/24/11 0542 Order Status:Completed Updated:11/24/11614 WBC [...] ng/mL CK-MB Index 1.1 POC cardiac troponin [[id number]] Collected:11/24/1145 Order Status:Completed Updated:11/24/11558 POC CARDIAC TROPONIN 0.01 0.00 - 0.10 ng/mL I personally reviewed the lab results and they have been posted to the chart. Pertinent po sitive and negative findings have been addressed appropriately. Radiology and EKG Evaluation Imaging Results XR Chest AP Portable (Preliminary result) Result time:11/24/11612 ED Interpretation Documented by Norah Barker MD (11/24/11612, [facility], Emergency Medicine) This ED initial [...] am: Bradycardic sinus rhythm at 50 bpm. IL, QRS, QT, and axis are normal. No [...] Details Comments Contact Info Jerrell Gutiérrez, Call in 2 days [address] [facility] [address] [facility] EMERGENCY DEPARTMENT As needed if symptoms worsen [address] [facility] [address] Discharge Medications: New Prescriptions No new medications Additional Documentation Procedures Attending Note: Documentation assistance provided by ELIAS COREAS (Scribe). Information recorded by the scribe has been reviewed and validated by me. I ag ree with its contents. MD Norah Harris MD 11/24/11703 onversion Transactio n, Provider Unknown - 11/24/2011 5:38 AM PDT ED Notes by Leslie Velazquez RN at 11/24/11537 Author: Leslie Velazquez RN Service: (none) Author Type: Registered Nurse Filed: 11/24/11544 Date of Service: 11/24/11537 Status: Signed Equine Vet: Leslie Velazquez RN (Registered Nurse) Patient placed on threat monitoring analyst, cont pulse ox, BP cuff, and tele called for cont cardiac monitoring. Leslie Velazquez RN 11/24/1145 onver ivana Transaction, Provider Unknown - 11/24/2011 5:35 AM PDT ED Notes by Leslie Velazquez RN at 11/24/11534 Author: Leslie Velazquez RN Service: (none) Author Type: Registered Nurse Filed: 11/24/11534 Date of Service: 11/24/11534 Status: Signed Equine Vet: Leslie Velazquez, RN (Registered Nurse) Bed:06
Expected date:
Expected time:
Means of arrival:
Comments:
CP docume nted in this encounter Plan of Treatment +--------+---------+ + + + | Date | Type | Specialty | Care Team | Description | +--------+---------+ + + + | 09/10/ | Office | Geriatric Medicine | Mireya Pack, | | | 2019 | Visit | | TYPEWRITER ALIGNER [address] | | | | | | [address] [place], | | | | | | [place] [address] | | | | | | [phone] | | | | | | | | +--------+---------+ + + + | 09/29/ | Office | Urology | Mireya Pack, | | 2019 | Visit | | TYPEWRITER ALIGNER [address] | | | | | | [address] [place], | | | | | | [place] [address] | | | | | | [phone] | | | | | | | | | | | | Toy Wild, DO | | | | | | [address] [facility] | | | | | | [place] [address] | | | | | | [phone] | | | | | | | [...] + | Richard, Joaquin Conversion - 09/29/2018 12:48 AM PDT NORAH AMARAL CHEST 1 VIEW11/24/2011 | | 6:05 AM HISTORY:Chest pain. TECHNIQUE:One view chest. FINDINGS:Compared with September 22 | | 2011. Heart size is normal. [...]
--- OUTSIDE RECORDS SUMMARY | ~2019-09-09 | XMS | Encounter Summary ---
Demographics + + + | Address | [address] | | | [place] [address] | + + + | Home Phone [...] Sammi Kohler | ECON | [place] [address] | | + + + + + Care Team Providers + +------+ + | Care Industrial Maintenance Repairer Name | Role | Phone | [...] + + | 06/25/ | Refill | [facility] | Mireya Pack, | Medication Refill | | 2019 | | [facility] [address] | CEMENT FINISHING SUPERVISOR [address] | | | | | [address] | [address] [place], | | | | | [place], [place] | [place] [address] | | | | | [address] | [phone] | | | | | [phone] | | | +--------+--------+ + + + [...] Miscellaneous Notes Telephone Encounter - Mel Morton, Director Of Academic - 06/27/2019 7:59 AM PDTPharmac y requesting refill. Last appointment was 06/04/2019. Next appointment not scheduled.Electro nically signed by Mel Morton, Director Of Academic at 06/27/2019 8:00 AM PDTdocumented camilla sanchez this encounter Plan of Treatment +--------+---------+ + + + | Date | Type | Specialty | Care Team | Description | +--------+---------+ + + + | 09/10/ | Office | Geriatric Medicine | Mireya Pack, | | | 2019 | Visit | | CEMENT FINISHING SUPERVISOR [address] | | | | | | [address] [place], | | | | | | [place] [address] | | | | | | [phone] | | | | | | | | +--------+---------+ + + + | 09/29/ | Office | Urology | Mireya Pack, | | 2019 | Visit | | CEMENT FINISHING SUPERVISOR [address] | | | | | | [address] [facility] | | | | | | [place] [address] | | | | | | [phone] | | | | | | | | | | | | [place], | | | | | | [address] | | | | | | [place] [address] | | | | | | [phone] | | | | | | | | +--------+---------+ + + + documented as of this encounter Visit Diagnoses Not on filedocumented in this encounter"
--- OUTSIDE RECORDS SUMMARY | ~2019-09-09 | XMS | Encounter Summary ---
Demographics + + + | Address | [address] | | | [place] [address] | + + + | Home Phone [...] + | Sammi Kohler | ECON | [place] [address] | | + + + + + Care Team Providers + +------+ + | Care Audio Visual Production Specialist Name | Role | Phone | + +------+ + PCP | Unavailable | + +------+ + Encounter Details +--------+ + + + + | Date | Type | Department | Care Team | Description | +--------+ + + + + | 02/03/ | Emergency | [facility] | Norah Barker MD | Viral URI with | | 2013 - | | MEDICAL CENTER | [address] | cough; Acute chest | | | | EMERGENCY CENTER | [place] [address] | pain; Hyperglycemia | | 02/04/ | | [address] | [phone] | | | 2013 | | [place], [place] | | | | | | [address] | | | | | | [phone] | | | +--------+ + + + [...] Author: Doris Moya Service: (none) Author Type: Airport Operations Supervisor Filed: 02/04/1422 Date of Service: 02/04/1422 Status: Signed Stereo Plotter Operator: Doris Moya (Airport Operations Supervisor) [facility] Taxi called Doris Moya 02/04/1422 onver ivana Transaction, Provider Unknown - 02/03/2014 11:54 PM PST ED Notes by Jenna Carreno RN at 02/03/142353 Author: Jenna Carreno RN Service: (none) Author Type: Registered Nurse Filed: 02/03/142353 Date of Service: 02/03/142353 Status: Signed Stereo Plotter Operator: Jenna Carreno RN (Registered Nurse) Assumed pt care, received report from Onel Carreno RN 02/03/142353 orah Lawton MD - 02/03/2014 11:09 PM PSTFormatting of this note might be different from the or iginal. ED Provider Notes by Norah Barker MD at 02/03/142308 Author: Norah Barker MD Service: (none) Author Type: Physician Filed: 02/04/14 0005 Date of Service: 02/03/142308 Status: Signed Stereo Plotter Operator: Norah Barker MD (Physician) [facility] Department of Emergency Medicine History of Present [...] CHOLECYSTECTOMY; Surgeon: Jevon Vargas DO; Location: [facility] MAIN OR; Service: General; Laterality: N/A; Abdominal surgery Cholecystectomy Skin cancer excision 10/10/2012 Procedure: EXCISION - SKIN CANCER; Surgeon: Sy Fierro MD; Location: [facility] MA[facility] OR ; Service: Plastics; Laterality: Left; upper arm and upper back w/frozen section Esophagogastroduodenoscopy 03/03/2013 Procedure: ESOPHAGOGASTRODUODENOSCOPY; Surgeon: Howie Gibson MD; Location: [facility] ENDOSCOPY; S ervice: Gastroenterology; Laterality: N/A; Colonoscopy 03/04/2013 Procedure: COLONOSCOPY; Surgeon: Howie Gibson MD; Location: [facility] ENDOSCOPY; Service: Gastroe nterology; Laterality: N/A; [...] lungs as needed. 108 mcg/act Historical Provider Wamoq-E-Ipywkqopwpqky (BEANO) TABS Take 150 Units by mouth [...] daily. 180 mg at hs 11/30/13 11/30/14 [facility] carlyn Mae MD docusate sodium [...] 100 mg by mouth nightly. Historical Provider zlsfagqpp-citiktrd-hxzjacuva hydroxide-simethicone Take 40 mLs by mouth daily [...] Component Value Ref Range Date/Time Cardiac Panel [[id number]] (Abnormal) Collected: 02/03/14 2321 Order Status: Completed Updated: 02/03/14 8891 WBC 9.1 3.8 - 11.0 K/uL RBC [...] ng/mL CK-MB Index 3.0 POC cardiac troponin [[id number]] Collected: 02/03/14 2326 Order Status: Completed Updated: [...] Sinus bradycardia tachycardia rhythm at 75 bpm. TN, QRS, QT, and axis are no rmal. [...] soon as possible for a visit [address] [facility] [id number] [facility] Emergency Department If symptoms worsen Shanae[address]anna [address] [facility] [address] Discharge Medications: New Prescriptions BENZONATATE (TESSALON) 100 MG CAPSULE Take 1 capsule by mouth every 8 (eight) hours. This document has been prepared with a voice recognition system. The possibility of "sound alike" instrument panel assembler errors, addition and/or deletions may occur. If there is any question p lease contact the author of the document. Procedures Additional Documentation Procedures Norah Barker MD 02/04/14 0005 onversion Dante sanchez, Provider Unknown - 02/03/2014 11:00 PM PST ED Notes by Onel Kenney RN at 02/03/142299 Author: Onel Kenney RN Service: (none) Author Type: Registered Nurse Filed: 02/03/142299 Date of Service: 02/03/142299 Status: Signed Stereo Plotter Operator: Onel Kenney RN (Registered Nurse) Bed: 08 Expected date: Expected time: Means of arrival: Comments: docume nted in this encounter Plan of Treatment +--------+---------+ + + + | Date | Type | Specialty | Care Team | Description | +--------+---------+ + + + | 09/10/ | Office | Geriatric Medicine | Mireya Pack, | | | 2019 | Visit | | OCC THER [address] | | | | | | [address] [place], | | | | | | [place] [address] | | | | | | [phone] | | | | | | | | +--------+---------+ + + + | 09/29/ | Office | Urology | Mireya Pack, | | | 2019 | Visit | | OCC THER [address] | | | | | | [address] [place], | | | | | | [place] [address] | | | | | | [phone] | | | | | | | | | | | | Toy Wild, DO | | | | | | [address] | | | | | | [place] [address] | | | | | | [phone] | | | | | | | [...] CHEST 2 VIEW FRONTAL | | AND XYMFOPO4002/03/2014 11:52 PM HISTORY:58 years. Male. Chest pain [...] [place] | | | | | | [address] | | | | + + + + + -+ | Non- | 4.64Comment: Testing | 4.20 - 5.70 | EXTERNAL | | | Red Blood | performed at [facility];[address] | M/uL | LAB | | | Cells | [address];[place] | | | | | Counted | [address] | | | | + + + + + -+ | Hemoglobin | 11.9 (L)Comment: Testing | 13.2 - 17.0 | EXTERNAL | | | | performed at [facility];[address] | g/dL | LAB | | | | [address];[place] | | | | | | [address] | | | | + + + + + -+ | Hematocrit, | 37.1 (L)Comment: Testing | 39.0 - 50.0 % | EXTERNAL | | | POC | performed at [facility];[address] | | LAB | | | | [address];[place] | | | | | | [address] | | | | + + + + + -+ | MCV | 80.0Comment: Testing | 80.0 - 100.0 fl | EXTERNAL | | | | performed at [facility];[address] | | LAB | | | | [address];[place] | | | | | | [address] | | | | + + + + + -+ | MCH | 25.6 (L)Comment: Testing | 27.0 - 34.0 pg | EXTERNAL | | | | performed at [facility];[address] | | LAB | | | | [address];[place] | | | | | | [address] | | | | + + + + + -+ | MCHC | 32.0Comment: Testing | 32.0 - 35.5 | EXTERNAL | | | | performed at [facility];[address] | g/dL | LAB | | | | [address];[place] | | | | | | [address] | | | | + + + + + -+ | RDW-CV | 43.3Comment: Testing | 37 - 53 fl | EXTERNAL | | | | performed at [facility];[address] | | LAB | | | | [address];[place] | | | | | | [address] | | | | + + + + + -+ | Platelet | 257Comment: Testing | 150 - 400 K/uL | EXTERNAL | | | Count | performed at [facility];[address] | | LAB | | | Plasma | [address];[place] | | | | | | [address] | | | | + + + + + -+ | MPV | 7.8Comment: Testing | fl | EXTERNAL | | | | performed at [facility];[address] | | LAB | | | | [address];[place] | | | | | | [address] | | | | + + + + + -+ | Differentia | AUTOMATEDComment: | | EXTERNAL | | | l Type | Testing performed at | | LAB | | | | [facility];[address] | | | | | [address];[place] [address] | | | | + + + + + -+ | % Segmented | 57.8Comment: Testing | % | EXTERNAL | | | | performed at [facility];[address] | | LAB | | | Neutrophils | [address];[place] | | | | | | [address] | | | | + + + + + -+ | % | 27.3Comment: Testing | % | EXTERNAL | | | Lymphocytes | performed at [facility];[address] | | LAB | | | | [address];[place] | | | | | | [address] | | | | + + + + + -+ | % Monocytes | 10.2Comment: Testing | % | EXTERNAL | | | | performed at [facility];[address] | | LAB | | | | [address];[place] | | | | | | [address] | | | | + + + + + -+ | % | 3.5Comment: Testing | % | EXTERNAL | | | Eosinophils | performed at [facility];[address] | | LAB | | | | [address];[place] | | | | | | [address] | | | | + + + [...] [place] | | | | | | [address] | | | | + + + + + -+ | Absolute | 2.5Comment: Testing | 1.0 - 3.9 K/uL | EXTERNAL | | | Lymphocytes | performed at [facility];[address] | | LAB | | | | [address];[place] | | | | | | [address] | | | | + + + + + -+ | Absolute | 0.9 (H)Comment: Testing | 0 - 0.8 K/uL | EXTERNAL | | | Monocytes | performed at [facility];[address] | | LAB | | | | [address];[place] | | | | | | [address] | | | | + + + + + -+ | Absolute | 0.3Comment: Testing | 0 - 0.5 K/uL | EXTERNAL | | | Eosinophils | performed at [facility];[address] | | LAB | | | | [address];[place] | | | | | | [address] | | | | + + + + + -+ | Absolute | 0.1Comment: Testing | 0 - 0.1 K/uL | EXTERNAL | | | Basophils | performed at [facility];[address] | | LAB | | | | [address];[place] | | | | | | [address] | | | | + + + + + -+ | Na | 140Comment: Testing | 135 - 143 | EXTERNAL | | | | performed at [facility];[address] | mmol/L | LAB | | | | [address];[place] | | | | | | [address] | | | | + + + + + -+ | K | 4.1Comment: Testing | 3.5 - 4.9 | EXTERNAL | | | | performed at [facility];[address] | mmol/L | LAB | | | | [address];[place] | | | | | | [address] | | | | + + + + + -+ | Cl | 103Comment: Testing | 99 - 109 mmol/L | EXTERNAL | | | | performed at [facility];[address] | | LAB | | | | [address];[place] | | | | | | [address] | | | | + + + + + -+ | CO2 | 30Comment: Testing | 23 - 32 mmol/L | EXTERNAL | | | | performed at [facility];[address] | | LAB | | | | [address];[place] | | | | | | [address] | | | | + + + + + -+ | Anion Gap | 11Comment: Testing | 5 - 20 mmol/L | EXTERNAL | | | | performed at [facility];[address] | | LAB | | | | [address];[place] | | | | | | [address] | | | | + + + + + -+ | Glucose, | 278 (H)Comment: Testing | 65 - 99 mg/dL | EXTERNAL | | | Fasting | performed at [facility];[address] | | LAB | | | | [address];[place] | | | | | | [address] | | | | + + + + + -+ | BUN | 14Comment: Testing | 8 - 25 mg/dL | EXTERNAL | | | | performed at [facility];[address] | | LAB | | | | [address];[place] | | | | | | [address] | | | | + + + + + -+ | Creatinine | 1.28Comment: Testing | 0.70 - 1.30 | EXTERNAL | | | | performed at [facility];[address] | mg/dL | LAB | | | | [address];[place] | | | | | | [address] | | | | + + + + + -+ | BUN/Creatin | 11Comment: Testing | | EXTERNAL | | | ine Ratio | performed at [facility];[address] | | LAB | | | | [address];[place] | | | | | | [address] | | | | + + + + + -+ | Calcium | 8.4 (L)Comment: Testing | 8.5 - 10.2 | EXTERNAL | | | | performed at [facility];[address] | mg/dL | LAB | | | | [address];[place] | | | | | | [address] | | | | + + + + + -+ | Protein, | 6.7Comment: Testing | 6.3 - 8.2 g/dL | EXTERNAL | | | Total | performed at [facility];[address] | | LAB | | | | [address];[place] | | | | | | [address] | | | | + + + + + -+ | Albumin | 3.0 (L)Comment: Testing | 3.6 - 5.0 g/dL | EXTERNAL | | | | performed at [facility];[address] | | LAB | | | | [address];[place] | | | | | | [address] | | | | + + + + + -+ | Globulin | 3.7Comment: Testing | 1.3 - 4.9 g/dL | EXTERNAL | | | | performed at [facility];[address] | | LAB | | | | [address];[place] | | | | | | [address] | | | | + + + + + -+ | A/G Ratio | 0.8 (L)Comment: Testing | 1.0 - 2.4 | EXTERNAL | | | | performed at [facility];[address] | | LAB | | | | [address];[place] | | | | | | [address] | | | | + + + + + -+ | Bilirubin | 0.2Comment: Testing | 0.1 - 1.5 mg/dL | EXTERNAL | | | Total | performed at [facility];[address] | | LAB | | | | [address];[place] | | | | | | [address] | | | | + + + + + -+ | ALP, | 76Comment: Testing | 35 - 115 U/L | EXTERNAL | | | External | performed at [facility];[address] | | LAB | | | | [address];[place] | | | | | | [address] | | | | + + + + + -+ | AST | 17Comment: Testing | 10 - 45 U/L | EXTERNAL | | | | performed at [facility];[address] | | LAB | | | | [address];[place] | | | | | | [address] | | | | + + + + + -+ | ALT | 21Comment: Testing | 10 - 65 U/L | EXTERNAL | | | | performed at [facility];[address] | | LAB | | | | [address];[place] | | | | | | [address] | | | | + + + [...] | | | | | Blvd;[place] [address] | | | | + + + + + -+ | CK, Total | 117Comment: Testing | 55 - 400 U/L | EXTERNAL | | | | performed at [facility];[address] | | LAB | | | | [address];[place] | | | | | | [address] | | | | + + + [...] [place] | | | | | | [address] | | | | + + + + + -+ | aPTT, | 24Comment: Testing | 23 - 32 seconds | EXTERNAL | | | Patient | performed at [facility];[address] | | LAB | | | | [address];[place] | | | | | | [address] | | | | + + + + + -+ | CK-MB | 3.5Comment: Testing | 0.5 - 3.6 ng/mL | EXTERNAL | | | | performed at [facility];[address] | | LAB | | | | [address];[place] | | | | | | [address] | | | | + + + [...] (500), | | | | | | marketing editor Keyla Gregory | | | | | | (25) on 02/04/2014 | | | | | | 2:45:51 AM | | | | + + + + + + + + | Specimen | + + | | + + + + + | Narrative | Performed At | + + + | Historically converted procedure from [facility] Epic environment | EXTERNAL LAB | + [...]
--- OUTSIDE RECORDS SUMMARY | ~2019-09-09 | XMS | Encounter Summary ---
Demographics + + + | Address | [address] | | | [place] [address] | + + + | Home Phone [...] Sammi Kohler | ECON | [place] [address] | | + + + + + Care Team Providers + +------+ + | Care Ballet Soloist Name | Role | Phone | + +------+ + | Mireya Pack NP | PCP | | + +------+ + Encounter Details +--------+ + + + + | Date | Type | Department | Care Team | Description | +--------+ + + + + | 08/22/ | Telephone | [facility] | Jeni Dean, | | | 2019 | | CENTER | BRINE MIXER OPERATOR [address] | | | | | ANTICOAGULATION | [place] [address] | | | | | [facility] [place] | [phone] | | | | | [address] | | | | | | [place], [place] | | | | | | [address] | | | | | | [phone] | | | +--------+ + + + [...] Telephone Encounter - Jeni Dean ARNP - 08/23/2019 4:40 PM PDTTC to [facility] to speak sara Ceja regarding pt and medications. Will call on Monday morning to discuss INR and Warfari n management. documented in this e ncounter Plan of Treatment +--------+---------+ + + + | Date | Type | Specialty | Care Team | Description | +--------+---------+ + + + | 09/10/ | Office | Geriatric Medicine | Mireya Pack, | | | 2019 | Visit | | IMAGING SCHEDULER [address] | | | | | | [address] [place], | | | | | | [place] [address] | | | | | | [phone] | | | | | | | | +--------+---------+ + + + | 09/29/ | Office | Urology | Mireya Pack, | | | 2019 | Visit | | IMAGING SCHEDULER [address] | | | | | | [address] [place], | | | | | | [place] [address] | | | | | | [phone] | | | | | | | | | | | | Toy Wild, DO | | | | | | [address] | | | | | | [place] [address] | | | | | | [phone] | | | | | | | | +--------+---------+ + + + documented as of this encounter Visit Diagnoses + + | Diagnosis | + + | Atrial fibrillation with RVR (HCC) Atrial fibrillation | + + documented in this encounter"
--- OUTSIDE RECORDS SUMMARY | ~2019-09-09 | XMS | Encounter Summary ---
Demographics + + + | Address | [address] | | | [place] [address] | + + + | Home Phone [...] + | Sammi Kohler | ECON | [place] [address] | | + + + + + Care Team Providers + +------+ + | Care Charge Rn Name | Role | Phone | + +------+ + PCP | Unavailable | + +------+ + Encounter Details +--------+ + + + + | Date | Type | Department | Care Team | Description | +--------+ + + + + | 11/26/ | Emergency | [facility] | Ashu Bobo | Recurrent vertigo | | 2013 | | MEDICAL CENTER | MD Gordon [address] | | | | | EMER[facility] [address] | [address] [place], [place] | | | | | [address] [facility] | [address] | | | | | [place], [place] | [phone] | | | | | [address] | | | | | | [phone] | | | +--------+ + + + [...] Author: QUINN Richardson Service: (none) Author Type: Scallop Cutter Machine Filed: 11/26/131804 Date of Service: 11/26/131802 Status: Signed Chandelier Maker: QUINN Richardson (Scallop Cutter Machine) ED CARE GUIDELINES FROM [facility] CONSISTENT CARE PROGRAM: 33 ED VISITS (1 YR.) Care Recommendation: Kevyn has a printed Crisis Plan at the Assisted Living Facility that he is to follow before coming to the ED for non life-threatening issues. Please discuss with Kevyn when he present s to the ED. The following guidelines were formulated by the ED Care Guidelines Committee of the [facility] Consistent Care Program on May 21, 2013. No controlled substances should be administered in the ED or prescribed from the ED for sub jective pain. Past Medical & Surgical History: Primary Care Provider (PCP) is Dr. Gutiérrez at . Notify PCP if giving any a dditional narcotics for objective findings. PCP supports enrollment in the [facility] Care Program. Medical History: 1. Diabetes-He is on a sliding scale after meals, routine insulin before meals and takes La ntus at night. A1C April, = 7.9%. He was referred to an route service representative in February, 4. 2. COPD- He take [...] the GE junction (requiring managem ent in [place] at ), rectal ulcer and internal hemorrhoids. 9. Hernia- He has been referred to Dr. Vargas. Problem List: He needs to make regular visits to see his PCP in light of his chronic conditions. He estab lished in February, but he never returned as requested. This patient is developmentally delayed and has multiple chronic conditions and providers. He would benefit from having a Handhole Machine Operator assist him in coordinating his care. History of Behavioral Health Conditions: He has depression and anxiety- This is managed by his PCP. He takes Paxil and abilify. He has been referred to [facility] in February. According to [facility], he never establish ed care. Please follow-up with him and assist him in making another appointment to establish care. Pain/Opioid Agreement: Kevyn has an order at the [facility] for hydrocodone as needed. He does not h ave a diagnosis of chronic pain. Please see [facility] for prescribing history. Social History or Identified Risk: - Fall Risk - Non adherence - Transportation Issues Social History: Kevyn lives at [facility] . He may require another level of care given the number of ED visits at enrollment (22 in the last year)-please contact his [facility] Ca se Recording Studio Set Up Worker (Fermin Preston) to discuss. Kevyn is developmentally delayed- Patient may benefit from having someone with him at his d octor's appointments. He has applied for Dial-A-Ride services (April,) Applied for a Health Home for this client through [facility]- please review Provider One to determ ine if one has been assigned. Additional Information: This patient is case managed by the [place] Consistent Care Program. Please contact the ride operator at your hospital for any immediate [...] Type: Physician Filed: 11/26/131827 Date of Service: 11/26/131813 Status: Signed Chandelier Maker: Ashu Bobo MD (Physician) Procedures Additional Documentation Procedures [facility] Department of Emergency Medicine History of Present Illness Patient Identification Kevyn Guzman is a 57 y.o. male. Patient information was obtained from patient and EMS personnel. History/Exam limitations: none. Patient presented to the Emergency Department by: Myesha Tracey 182 Chief Complaint Chief Complaint Patient presents [...] - CHOLECYSTECTOMY; Surgeon: Jevon Vargas DO; Location: [facility] MA[facility] OR; Service: General; Laterality: N/A; Abdominal surgery Cholecystectomy Skin cancer excision 10/10/2012 Procedure: EXCISION - SKIN CANCER; Surgeon: Sy Fierro MD; Location: [facility] MA[facility] OR ; Service: Plastics; Laterality: Left; upper arm and upper back w/frozen section Esophagogastroduodenoscopy 03/03/2013 Procedure: ESOPHAGOGASTRODUODENOSCOPY; Surgeon: Howie Gibson MD; Location: [facility] ENDOSCOPY; S ervice: Gastroenterology; Laterality: N/A; Colonoscopy 03/04/2013 Procedure: COLONOSCOPY; Surgeon: Howie Gibson MD; Location: [facility] ENDOSCOPY; Service: Gastroe nterology; Laterality: N/A; Upper gastrointestinal endoscopy Skin biopsy Hernia repair 07/03/2013 Procedure: LAPAROSCOPIC - HERNIA - INCISIONAL; Surgeon: Jevon Vargas DO; Location: [facility] MAIN OR; Service: General; Laterality: [...] into the skin nightly. H istorical Provider rlupvwisx-qdrvhohe-itnhxevud hydroxide-simethicone Take 40 mLs by mouth daily [...] as soon as possible for a visit [address] [place] [address] Discharge Medications: New Prescriptions No new medications Ashu Bobo MD 11/26/131827 onversion Transdarcy ledesma, Provider Unknown - 11/26/2013 6:12 PM PDT ED Notes by Gilberto Plunkett RN at 11/26/131811 Author: Gilberto Plunkett RN Service: (none) Author Type: Registered Nurse Filed: 11/26/131811 Date of Service: 11/26/131811 Status: Signed Chandelier Maker: Gilberto Plunkett RN (Registered Nurse) Bed: 1107 Expected date: Expected time: Means of arrival: Comments: docume nted in this encounter Plan of Treatment +--------+---------+ + + + | Date | Type | Specialty | Care Team | Description | +--------+---------+ + + + | 09/10/ | Office | Geriatric Medicine | Mireya Pack, | | | 2019 | Visit | | HOTEL DESK CLERK [address] | | | | | | [address] [place], | | | | | | [place] [address] | | | | | | [phone] | | | | | | | | +--------+---------+ + + + | 09/29/ | Office | Urology | Mireya Pack, | | | 2019 | Visit | | HOTEL DESK CLERK [address] | | | | | | [address] [place], | | | | | | [place] [address] | | | | | | [phone] | | | | | | | | | | | | Toy Wild, DO | | | | | | [address] | | | | | | [place] [address] | | | | | | [phone] | | | | | | | | +--------+---------+ + + + documented as of this encounter Visit Diagnoses + + | Diagnosis | + + | Recurrent vertigo | + + documented in this encounter
--- OUTSIDE RECORDS SUMMARY | ~2019-09-09 | XMS | Encounter Summary ---
Demographics + + + | Address | [address] | | | [place] [address] | + + + | Home Phone [...] + | Sammi Kohler | ECON | [place] [address] | | + + + + + Care Team Providers + +------+ + | Care Education Director Name | Role | Phone | [address] | | | | | | [place], [place] | | | | | | [address] | | | | | | [phone] | | | +--------+ + + + [...] 01/10/141117 Date of Service: 01/10/141107 Status: Signed Steamer Tender: Yamileth Harvey RN (Registered Nurse) Pt assisted [...] 01/10/141032 Date of Service: 01/10/141031 Status: Signed Steamer Tender: Vadim Bernal RN (Registered Nurse) Patient returned from imaging. Vadim Bernal RN 01/10/141032 onver ivana Transaction, Provider Unknown - 01/10/2014 9:53 AM PST ED Notes by Vadim Bernal RN at 01/10/14 09 Author: Vadim Bernal RN Service: (none) Author Type: Registered Nurse Filed: 01/10/14952 Date of Service: 01/10/14952 Status: Signed Steamer Tender: Vadim Bernal RN (Registered Nurse) Patient gowned, [...] 1058 Date of Service: 01/10/14941 Status: Signed Steamer Tender: Norah Barker MD (Physician) [facility] Department of Emergency Medicine History of [...] CHOLECYSTECTOMY; Surgeon: Jevon Vargas DO; Location: [facility] MAIN OR; Service: General; Laterality: N/A; Abdominal surgery Cholecystectomy Skin cancer excision 10/10/2012 Procedure: EXCISION - SKIN CANCER; Surgeon: Sy Fierro MD; Location: [facility] MAIN OR ; Service: Plastics; Laterality: Left; upper arm and upper back w/frozen section Esophagogastroduodenoscopy 03/03/2013 Procedure: ESOPHAGOGASTRODUODENOSCOPY; Surgeon: Howie Gibson MD; Location: [facility] ENDOSCOPY; S ervice: Gastroenterology; Laterality: N/A; Colonoscopy 03/04/2013 Procedure: COLONOSCOPY; Surgeon: Howie Gibson MD; Location: [facility] ENDOSCOPY; Service: Gastroe nterology; Laterality: N/A; Upper gastrointestinal endoscopy Skin biopsy Hernia repair 07/03/2013 Procedure: LAPAROSCOPIC - HERNIA - INCISIONAL; Surgeon: Jevon Vargas DO; Location: [facility] MAIN OR; Service: General; Laterality: N/A; Prior to Admission medications Medication Sig Start Date End Date Taking? Authorizing Provider Albuterol Sulfate (VENTOLIN HFA IN) Inhale 2 puffs into the lungs as needed. Historical Provider Dtoco-U-Hmkhmhencoyyj (BEANO) TABS Take 150 Units by mouth [...] 100 mg by mouth nightly. Historical Provider mihrnofjz-qjueulfq-fsraehftt hydroxide-simethicone Take 40 mLs by mouth daily [...] Value Ref Range Date/Time CBC with differential [[id number]] (Abnormal) Collected: 01/10/14 0950 Order Status: Completed [...] 0 - 0.1 K/uL Comprehensive metabolic panel [[id number]] (Abnormal) Collected: 01/10/14949 Order Status: Completed Updated: [...] EGFR 53 (L) >60 mL/min/1.73m2 C-reactive protein [[id number]] (Abnormal) Collected: 01/10/1450 Order Status: Completed Updated: 01/10/14 1026 Specimen Information: Blood CRP 1.2 (H) <0.5 mg/dL Lipase [[id number]] Collected: 01/10/14949 Order Status: Completed Updated: 01/10/14 1026 Specimen Information: Blood LIPASE 76 73 - 393 U/L Amylase [[id number]] (Abnormal) Collected: 01/10/14949 Order Status: Completed Updated: [...] recognition system. The possibility of "sound alike" kelp gatherer errors, addition and/or deletions may occur. If [...] | 2019 | Visit | | [facility] [address] | | | | | | [address] [place], | | | | | | [place] [address] | | | | | | [phone] | | | | | | | | +--------+---------+ + + + | 09/29/ | Office | Urology | Mireya Pack, | | | 2019 | Visit | | [facility] [address] | | | | | | [facility] [address] [place], | | | | | | [place] [address] | | | | | | [phone] | | | | | | | | | | | | Toy Wild, | | | | | | [address] | | | | | | [place] [address] | | | | | | [phone] | | | | | | | [...] Conversion - 09/21/2018 3:31 PM PDT NORAH GR1955CT PELVIS APPY | | WO VJAXZFQS47/5/2014 10:26 AM INDICATION: Abdominal pain COMPARISON: 06/05/13 [...] [place] | | | | | | [address] | | | | + + + + + + | Non- | 4.79Comment: Testing | 4.20 - 5.70 | EXTERNAL | | | Red Blood | performed at [facility];888 | M/uL | LAB | | | Cells | [address];[place] | | | | | Counted | [address] | | | | + + + + + + | Hemoglobin | 12.6 (L)Comment: Testing | 13.2 - 17.0 | EXTERNAL | | | | performed at [facility];888 | g/dL | LAB | | | | [address];[place] | | | | | | [address] | | | | + + + + + + | Hematocrit, | 38.3 (L)Comment: Testing | 39.0 - 50.0 % | EXTERNAL | | | POC | performed at [facility];[address] | | LAB | | | | [address];[place] | | | | | | [address] | | | | + + + + + + | MCV | 80.1Comment: Testing | 80.0 - 100.0 fl | EXTERNAL | | | | performed at [facility];[address] | | LAB | | | | [address];[place] | | | | | | [address] | | | | + + + + + + | MCH | 26.3 (L)Comment: Testing | 27.0 - 34.0 pg | EXTERNAL | | | | performed at [facility];[address] | | LAB | | | | [address];[place] | | | | | | [address] | | | | + + + + + + | MCHC | 32.8Comment: Testing | 32.0 - 35.5 | EXTERNAL | | | | performed at [facility];888 | g/dL | LAB | | | | [address];[place] | | | | | | [address] | | | | + + + + + + | RDW-CV | 42.0Comment: Testing | 37 - 53 fl | EXTERNAL | | | | performed at [facility];[address] | | LAB | | | | [address];[place] | | | | | | [address] | | | | + + + + + + | Platelet | 274Comment: Testing | 150 - 400 K/uL | EXTERNAL | | | Count | performed at [facility];[address] | | LAB | | | Plasma | [address];[place] | | | | | | [address] | | | | + + + + + + | MPV | 7.9Comment: Testing | fl | EXTERNAL | | | | performed at [facility];[address] | | LAB | | | | [address];[place] | | | | | | [address] | | | | + + + + + + | Differentia | AUTOMATEDComment: | | EXTERNAL | | | l Type | Testing performed at | | LAB | | | | [facility];[address];[place] [address] | | | | + + + + + + | % Segmented | 61.5Comment: Testing | % | EXTERNAL | | | | performed at [facility];[address] | | LAB | | | Neutrophils | [address];[place] | | | | | | [address] | | | | + + + + + + | % | 26.9Comment: Testing | % | EXTERNAL | | | Lymphocytes | performed at [facility];[address] | | LAB | | | | [address];[place] | | | | | | [address] | | | | + + + + + + | % Monocytes | 9.6Comment: Testing | % | EXTERNAL | | | | performed at [facility];[address] | | LAB | | | | [address];[place] | | | | | | [address] | | | | + + + + + + | % | 1.0Comment: Testing | % | EXTERNAL | | | Eosinophils | performed at [facility];[address] | | LAB | | | | [address];[place] | | | | | | [address] | | | | + + + + + + | % Basophils | 1.0Comment: Testing | % | EXTERNAL | | | | performed at [facility];[address] | | LAB | | | | [address];[place] | | | | | | [address] | | | | + + + + + + | Absolute | 5.7Comment: Testing | 1.9 - 7.4 K/uL | EXTERNAL | | | Segmented | performed at [facility];888 | | LAB | | | Neutrophils | [address];[place] | | | | | | [address] | | | | + + + + + + | Absolute | 2.5Comment: Testing | 1.0 - 3.9 K/uL | EXTERNAL | | | Lymphocytes | performed at [facility];[address] | | LAB | | | | [address];[place] | | | | | | [address] | | | | + + + + + + | Absolute | 0.9 (H)Comment: Testing | 0 - 0.8 K/uL | EXTERNAL | | | Monocytes | performed at [facility];[address] | | LAB | | | | [address];[place] | | | | | | [address] | | | | + + + + + + | Absolute | 0.1Comment: Testing | 0 - 0.5 K/uL | EXTERNAL | | | Eosinophils | performed at [facility];[address] | | LAB | | | | [address];[place] | | | | | | [address] | | | | + + + + + + | Absolute | 0.1Comment: Testing | 0 - 0.1 K/uL | EXTERNAL | | | Basophils | performed at [facility];[address] | | LAB | | | | [address];[place] | | | | | | [address] | | | | + + + [...] | LAB | | | | [address];[place], [place] | | | | | | [address] | | | | + + + [...] | LAB | | | | [address];[place], [place] | | | | | | [address] | | | | + + + [...] [place] | | | | | | [address] | | | | + + + [...] [place] | | | | | | [address] | | | | + + + + + + | K | 4.0Comment: Testing | 3.5 - 4.9 | EXTERNAL | | | | performed at [facility];888 | mmol/L | LAB | | | | [address];[place] | | | | | | [address] | | | | + + + + + + | Cl | 104Comment: Testing | 99 - 109 mmol/L | EXTERNAL | | | | performed at [facility];[address] | | LAB | | | | [address];[place] | | | | | | [address] | | | | + + + + + + | CO2 | 29Comment: Testing | 23 - 32 mmol/L | EXTERNAL | | | | performed at [facility];[address] | | LAB | | | | [address];[place] | | | | | | [address] | | | | + + + + + + | Anion Gap | 10Comment: Testing | 5 - 20 mmol/L | EXTERNAL | | | | performed at [facility];[address] | | LAB | | | | [address];[place] | | | | | | [address] | | | | + + + + + + | Glucose, | 181 (H)Comment: Testing | 65 - 99 mg/dL | EXTERNAL | | | Fasting | performed at [facility];[address] | | LAB | | | | [address] | | | | | | [address] | | | | + + + + + + | BUN | 23Comment: Testing | 8 - 25 mg/dL | EXTERNAL | | | | performed at [facility];[address] | | LAB | | | | [address];[place] | | | | | | [address] | | | | + + + + + + | Creatinine | 1.44 (H)Comment: Testing | 0.70 - 1.30 | EXTERNAL | | | | performed at [facility];[address] | mg/dL | LAB | | | | [address];[place] | | | | | | [address] | | | | + + + + + + | BUN/Creatin | 16Comment: Testing | | EXTERNAL | | | ine Ratio | performed at [facility];[address] | | LAB | | | | [address];[place] | | | | | | [address] | | | | + + + + + + | Calcium | 9.0Comment: Testing | 8.5 - 10.2 | EXTERNAL | | | | performed at [facility];[address] | mg/dL | LAB | | | | [address];[place] | | | | | | [address] | | | | + + + + + + | Protein, | 7.3Comment: Testing | 6.3 - 8.2 g/dL | EXTERNAL | | | Total | performed at [facility];[address] | | LAB | | | | [address];[place] | | | | | | [address] | | | | + + + + + + | Albumin | 3.6Comment: Testing | 3.6 - 5.0 g/dL | EXTERNAL | | | | performed at [facility];[address] | | LAB | | | | [address];[place] | | | | | | [address] | | | | + + + + + + | Globulin | 3.7Comment: Testing | 1.3 - 4.9 g/dL | EXTERNAL | | | | performed at [facility];[address] | | LAB | | | | [address];[place] | | | | | | [address] | | | | + + + + + + | A/G Ratio | 1.0Comment: Testing | 1.0 - 2.4 | EXTERNAL | | | | performed at [facility];[address] | | LAB | | | | [address];[place] | | | | | | [address] | | | | + + + + + + | Bilirubin | 0.3Comment: Testing | 0.1 - 1.5 mg/dL | EXTERNAL | | | Total | performed at [facility];[address] | | LAB | | | | [address];[place] | | | | | | [address] | | | | + + + + + + | ALP, | 88Comment: Testing | 35 - 115 U/L | EXTERNAL | | | External | performed at [facility];[address] | | LAB | | | | [address];[place] | | | | | | [address] | | | | + + + + + + | AST | 16Comment: Testing | 10 - 45 U/L | EXTERNAL | | | | performed at [facility];[address] | | LAB | | | | [address];[place] | | | | | | [address] | | | | + + + + + + | ALT | 24Comment: Testing | 10 - 65 U/L | EXTERNAL | | | | performed at [facility];[address] | | LAB | | | | [address];[place], [place] | | | | | | [address] | | | | + + + [...] [address];[place] [address] | | | | + + + [...]
--- OUTSIDE RECORDS SUMMARY | ~2019-09-09 | XMS | Encounter Summary ---
Demographics + + + | Address | [address] | | | [place] [address] | + + + | Home Phone [...] Sammi Kohler | ECON | [place] [address] | | + + + + + Care Team Providers + +------+ + | Care Chief Lock Tender Operator Name | Role | Phone | + +------+ + | Mik Diego DO | PCP | | + +------+ + Encounter Details +--------+ + + + + | Date | Type | Department | Care Team | Description | +--------+ + + + + | 10/28/ | Skilled | [facility] | Charlette Panda, | Type 2 diabetes | | 2019 | Nursing | [facility] | [employer] [address] | mellitus with | | | Facility | [facility] [address] | [facility] [address] | hyperglycemia, with | | | | [address] | [place] [address] | long-term current | | | | [place], [place] | [phone] | use of insulin (HCC) | | | | [address] | | (Primary Dx); | | | | [phone] | | Chronic obstructive | | | [...] f/u phys ical debility HPI: Resident of [facility] with a qualifying stay at [facility] from 10/11/18-10/16/18. Kevyn Emre Millan neri a62 y.o.malepast medical history of developmental delay, [...] he should.Patient was ruled out from having AR on serial car diac enzymes, blood pressures and blood sugars were better controlled, OT and PT saw the pat ient recommended SNF and the patient was subsequently discharged to [facility]. Discharg ed to SNF for PT/OT, medication management and usp. Provider reviewed and agree in full with [...] (HCC) 10/14/2017 Anxiety ARF (acute renal failure) ([facility]) 03/02/2013 Atrial fibrillation (HCC) Basal cell carcinoma 09/26/2012 arm and back COPD (chronic obstructive pulmonary disease) ([facility]) 03/02/2013 hypoxemia on 2 lts nc Depression Development delay Diabetes mellitus type II DVT (deep venous thrombosis) ([facility]) 03/29/2018 Facial droop 07/08/2013 GIB (gastrointestinal bleeding) [...] - INCISIONAL; Surgeon: Jevon Vargas DO; Location: [facility] MAIN OR; Service: General; Laterality: [...] 1 wk, moved from [facility], , 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 2 falls [...] IRON, TIBC, FERRITIN No results found for: [id number] No results found for: FOLATE No results found for: DIGOXIN No results found for: URICACID Cardiographics ECG: PERTINENT IMAGING/ PROCEDURES/ DIAGNOSTICS: @LPERXZZULP70@ Lab and Diagnostics Review and Summary: Patient's [...] | | 2019 | Visit | | TRAINING INTERN [address] | | | | | | [address] [place], | | | | | | [place] [address] | | | | | | [phone] | | | | | | | | +--------+---------+ + + + | 09/29/ | Office | Urology | Mireya Pack, | | | 2019 | Visit | | TRAINING INTERN [address] | | | | | | [address] [place], | | | | | | [place] [address] | | | | | | [phone] | | | | | | | | | | | | Toy Wild, DO | | | | | | [address] | | | | | | [place] [address] | | | | | | [phone] | | | | | | | [...]
--- OUTSIDE RECORDS SUMMARY | ~2019-09-09 | XMS | Encounter Summary ---
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 MD Notifed Kenny Holliday RN 02/27/13 0331 onver ivana Transaction, Provider Unknown - 02/27/2013 2:57 AM PST ED Notes by Renetta Goode RN at 02/27/13256 Author: Renetta Goode RN Service: (none) Author Type: Registered Nurse Filed: 02/27/13256 Date of Service: 02/27/13256 Status: Signed Press Supervisor: Renetta Goode RN (Registered Nurse) Pt placed on cardiac technologist. Tele notified. Renetta Goode RN 02/27/13256 Jose Rios MD - 02/27/2013 2:47 AM PSTFormatting of this note might be different from the o riginal. ED Provider Notes by Jose Flor MD at 02/27/13246 Author: Jose Flor MD Service: (none) Author Type: Physician Filed: 02/27/13 0430 Date of Service: 02/27/13246 Status: Signed Press Supervisor: Jose Flor MD (Physician) [facility] Department of Emergency Medicine History of Present Illness Patient Identification Kevyn Guzman is a 57 y.o. male. Patient information was obtained from patient and EMS personnel. History/Exam limitations: none. Patient presented to the Emergency Department by: [facility] 1723 Chief Complaint Chief Complaint [...] - CHOLECYSTECTOMY; Surgeon: Jevon Vargas DO; Location: [facility] MAIN OR; Service: General; Laterality: N/A; Abdominal surgery Cholecystectomy Skin cancer excision 10/10/2012 Procedure: EXCISION - SKIN CANCER; Surgeon: Sy Fierro MD; Location: [facility] MAIN OR ; Service: [...] The patient will follow up with t [facility] doctor for further outpatient treatment as indicated. [...] end organ damage at this time (acute HI, aortic dissection, acute CVA, etc) and no indication for emergent reduction in the blood pressure in the emergency department. The patient will follow up with their hi imary physician for recheck of the blood pressure and outpatient management. Records Reviewed Old medical records. Recent ED visits for dizziness, abdominal pain, etc. 17 total ER vis its in the last year. Anxiety and depressive history. Laboratory Evaluation Labs Reviewed [facility] CARD PANEL W/O TRP (ED ONLY) - Abnormal; Notable for the following: GLUCOSE 232 (*) Testing performed at [facility] [place] [address] Albumin 3.5 (*) Testing performed at [facility] [place] [address] A/G 0.9 (*) Testing performed at [facility] [place] [address] MMB 3.7 (*) Testing performed at [facility] [place] [address] All other components within normal limits POC CARDIAC TROPONIN Results Procedure Component Value Units Date/Time Cardiac Panel [[id number]] (Abnormal) Collected:02/27/13 0259 WBC 8.7 K/uL Updated:02/27/13 [...] EKG Interpretation Rhythm: Sinus Ventricular Rate: 58 MD Interval: Normal ST Segments: Normal Significant Q-waves: None Blocks: None Prolonged QT ED Diagnoses Final diagnoses Left-sided face pain Left arm pain Left leg pain Hypertension Hyperglycemia Disposition: ED Disposition Discharge Condition at discharge: Stable Follow-up Information Follow up With Details Comments Contact Info [facility] [place] [address] [facility] [address] Discharge Medications: New Prescriptions HYDROCODONE-ACETAMINOPHEN (NORCO) 5-325 MG PER TABLET Take 1 tablet by mouth every 6 (s ix) hours as needed for Pain. Additional Documentation Procedures Jose Flor MD 02/27/13 0430 onversion Transacti on, Provider Unknown - 02/27/2013 2:46 AM PSTFormatting of this note might be different fro m the original. ED Notes by Jenn Moralez RN at 02/27/13245 Author: Jenn Moralez RN Service: (none) Author Type: Registered Nurse Filed: 02/27/136 Date of Service: 02/27/13245 Status: Signed Press Supervisor: Jenn Moralez RN (Registered Nurse) Bed:07
Expected date:
Expected time:
Means of arrival:
Comments:
8834 docume nted in this encounter Plan of Treatment +--------+---------+ + + + | Date | Type | Specialty | Care Team | Description | +--------+---------+ + + + | 09/10/ | Office | Geriatric Medicine | Mireya Pack, | | | 2019 | Visit | | NETWORK RELATIONS CONSULTANT [address] | | | | | | [facility] [address] [place], | | | | | | [place] [address] | | | | | | [phone] | | | | | | | | +--------+---------+ + + + | 09/29/ | Office | Urology | Mireya Pack, | | 2019 | Visit | | NETWORK RELATIONS CONSULTANT [address] | | | | | | [address] [place], | | | | | | [place] [address] | | | | | | [phone] | | | | | | | | | | | | Junito, Toy W, DO | | | | | | [address] [facility] | | | | | | [place] [address] | | | | | | [phone] | | | | | | | [...] at [facility] | | LAB | | | | [address];[place] | | | | | | [address] | | | | + + + + + -+ | Non- | 4.91Comment: Testing | 4.20 - 5.70 | EXTERNAL | | | Red Blood | performed at [facility];[address] | M/uL | LAB | | | Cells | [address];[place] | | | | | Counted | [address] | | | | + + + + + -+ | Hemoglobin | 13.3Comment: Testing | 13.2 - 17.0 | EXTERNAL | | | | performed at [facility];[address] | g/dL | LAB | | | | [address];[place] | | | | | | [address] | | | | + + + + + -+ | Hematocrit, | 40.1Comment: Testing | 39.0 - 50.0 % | EXTERNAL | | | POC | performed at [facility];[address] | | LAB | | | | [address];[place] | | | | | | [address] | | | | + + + + + -+ | MCV | 81.7Comment: Testing | 80.0 - 100.0 fl | EXTERNAL | | | | performed at [facility];[address] | | LAB | | | | [address];[place] | | | | | | [address] | | | | + + + + + -+ | MCH | 27.1Comment: Testing | 27.0 - 34.0 pg | EXTERNAL | | | | performed at [facility];[address] | | LAB | | | | [address];[place] | | | | | | [address] | | | | + + + + + -+ | MCHC | 33.2Comment: Testing | 32.0 - 35.5 | EXTERNAL | | | | performed at [facility];[address] | g/dL | LAB | | | | [address];[place] | | | | | | [address] | | | | + + + + + -+ | RDW-CV | 46.4Comment: Testing | 37 - 53 fl | EXTERNAL | | | | performed at [facility];[address] | | LAB | | | | [address];[place] | | | | | | [address] | | | | + + + + + -+ | Platelet | 259Comment: Testing | 150 - 400 K/uL | EXTERNAL | | | Count | performed at [facility];[address] | | LAB | | | Plasma | [address];[place] | | | | | | [address] | | | | + + + + + -+ | MPV | 7.7Comment: Testing | fl | EXTERNAL | | | | performed at [facility];[address] | | LAB | | | | [address];[place] | | | | | | [address] | | | | + + + + + -+ | Differentia | AUTOMATEDComment: | | EXTERNAL | | | l Type | Testing performed at | | LAB | | | | [facility];[address];[place] [address] | | | | + + + [...] performed at [facility];[address] | mmol/L | LAB | | | | [address];[place] | | | | | | [address] | | | | + + + + + -+ | K | 3.6Comment: Testing | 3.5 - 4.9 | EXTERNAL | | | | performed at [facility];[address] | mmol/L | LAB | | | | [address];[place] | | | | | | [address] | | | | + + + + + -+ | Cl | 103Comment: Testing | 99 - 109 mmol/L | EXTERNAL | | | | performed at [facility];[address] | | LAB | | | | [address];[place] | | | | | | [address] | | | | + + + + + -+ | CO2 | 27Comment: Testing | 23 - 32 mmol/L | EXTERNAL | | | | performed at [facility];[address] | | LAB | | | | [address];[place] | | | | | | [address] | | | | + + + + + -+ | Anion Gap | 10Comment: Testing | 5 - 20 mmol/L | EXTERNAL | | | | performed at [facility];[address] | | LAB | | | | [address];[place] | | | | | | [address] | | | | + + + + + -+ | Glucose, | 232 (H)Comment: Testing | 65 - 99 mg/dL | EXTERNAL | | | Fasting | performed at [facility];[address] | | LAB | | | | [address];[place] | | | | | | [address] | | | | + + + + + -+ | BUN | 20Comment: Testing | 8 - 25 mg/dL | EXTERNAL | | | | performed at [facility];[address] | | LAB | | | | [address];[place] | | | | | | [address] | | | | + + + + + -+ | Creatinine | 1.18Comment: Testing | 0.70 - 1.30 | EXTERNAL | | | | performed at [facility];[address] | mg/dL | LAB | | | | [address];[place] | | | | | | [address] | | | | + + + + + -+ | BUN/Creatin | 17Comment: Testing | | EXTERNAL | | | ine Ratio | performed at [facility];[address] | | LAB | | | | [address];[place] | | | | | | [address] | | | | + + + + + -+ | Calcium | 8.6Comment: Testing | 8.5 - 10.2 | EXTERNAL | | | | performed at [facility];[address] | mg/dL | LAB | | | | [address];[place] | | | | | | [address] | | | | + + + + + -+ | Protein, | 7.4Comment: Testing | 6.3 - 8.2 g/dL | EXTERNAL | | | Total | performed at [facility];[address] | | LAB | | | | [address];[place] | | | | | | [address] | | | | + + + + + -+ | Albumin | 3.5 (L)Comment: Testing | 3.6 - 5.0 g/dL | EXTERNAL | | | | performed at [facility];[address] | | LAB | | | | [address];[place] | | | | | | [address] | | | | + + + + + -+ | Globulin | 3.9Comment: Testing | 1.3 - 4.9 g/dL | EXTERNAL | | | | performed at [facility];[address] | | LAB | | | | [address];[place] | | | | | | [address] | | | | + + + + + -+ | A/G Ratio | 0.9 (L)Comment: Testing | 1.0 - 2.4 | EXTERNAL | | | | performed at [facility];[address] | | LAB | | | | [address];[place] | | | | | | [address] | | | | + + + + + -+ | Bilirubin | 0.3Comment: Testing | 0.1 - 1.5 mg/dL | EXTERNAL | | | Total | performed at [facility];[address] | | LAB | | | | [address];[place] | | | | | | [address] | | | | + + + + + -+ | ALP, | 101Comment: Testing | 35 - 115 U/L | EXTERNAL | | | External | performed at [facility];[address] | | LAB | | | | [address];[place] | | | | | | [address] | | | | + + + + + -+ | AST | 26Comment: Testing | 10 - 45 U/L | EXTERNAL | | | | performed at [facility];[address] | | LAB | | | | [address];[place] | | | | | | [address] | | | | + + + + + -+ | ALT | 32Comment: Testing | 10 - 65 U/L | EXTERNAL | | | | performed at [facility];[address] | | LAB | | | | [address];[place] | | | | | | [address] | | | | + + + [...] | | | | | at [facility];[address] | | | | | | [address];[place] [address] | | | | + + + + + -+ | CK, Total | 185Comment: Testing | 55 - 400 U/L | EXTERNAL | | | | performed at [facility];[address] | | LAB | | | | [address];[place] | | | | | | [address] | | | | + + + [...] [facility];[address] | | | | | | [address];[place] | | | | | | [address] | | | | + + + + + -+ | aPTT, | 25Comment: Testing | 23 - 32 seconds | EXTERNAL | | | Patient | performed at [facility];[address] | | LAB | | | | [address];[place] | | | | | | [address] | | | | + + + + + -+ | CK-MB | 3.7 (H)Comment: Testing | 0.5 - 3.6 ng/mL | EXTERNAL | | | | performed at [facility];[address] | | LAB | | | | [address];[place] | | | | | | [address] | | | | + + + [...] | | | | | ROSARIO ([id number]), graphic editor Ashanti, | | | | | | Mel ([id number]) on | | | | | | 02/27/2013 6:24:53 PM | | | | + + + + + + + + | Specimen | + + | | + + + + + | Narrative | Performed At | + + + | Historically converted [facility] Epic environment | EXTERNAL LAB | + [...]
--- OUTSIDE RECORDS SUMMARY | ~2019-09-09 | XMS | Encounter Summary ---
Demographics + + + | Address | [address] | | | [place] [address] | + + + | Home Phone [...] + | Sammi Kohler | ECON | [place] [address] | | + + + + + Care Team Providers + +------+ + | Care Solvent Process Extractor Operator Name | Role | Phone | + +------+ + PCP | Unavailable | + +------+ + Encounter Details +--------+ + + + + | Date | Type | Department | Care Team | Description | +--------+ + + + + | 05/26/ | Hospital | [facility] | Bruno Pearson | Chest pain, | | 2014 - | Encounter | [facility] [address] | MD Jose [address] | atypical; COPD | | | | [address] | BLVD [place], [place] | (chronic obstructive | | 05/27/ | | [place], [place] | [address] | pulmonary disease) | | 2013 | | [phone] | | (HCC); GIB | | | | [phone] | | (gastrointestinal | | | | [...] encounter Discharge Summaries Trent Mukherjee MD - 05/27/2013 2:23 PM PDTFormatting of this note might be differe nt from the original. Discharge Summaries by Trent Mukherjee MD at 05/27/13 1423 Author: Trent Mukherjee MD Service: Hospitalist Author Type: Physician Filed: 05/27/13 1723 Date of Service: 05/27/13 1423 Status: Signed Pipe Inspector: Trent Mukherjee MD (Physician) [facility] Service: Hospitalist Discharge Summary Date of Admission: 05/26/2013 Date of Discharge: 05/27/2013, 2 PM Discharge Provider: TRENT MUKHERJEE MD Treatment Team: Admitting Provider: Bruno [...] fibrillation, Developmentally delayed and lives in a long-term. Patient was at worship to day when he had substernal chest [...] He had this nodule r emoved in [facility] in [place]. Dr. Gibson from GI used to follow [...] - CHOLECYSTECTOMY; Surgeon: Jevon Vargas DO; Location: [facility] MAIN OR; Service: General; Laterality: N/A; Abdominal surgery Cholecystectomy Skin cancer excision 10/10/2012 Procedure: EXCISION - SKIN CANCER; Surgeon: Sy Fierro MD; Location: [facility] MAIN OR ; Service: Plastics; Laterality: Left; upper arm and upper back w/frozen section Esophagogastroduodenoscopy 03/03/2013 Procedure: ESOPHAGOGASTRODUODENOSCOPY; Surgeon: Howie Gibson MD; Location: [facility] ENDOSCOPY; S ervice: Gastroenterology; Laterality: N/A; Colonoscopy 03/04/2013 Procedure: COLONOSCOPY; Surgeon: Howie Gibson MD; Location: [facility] ENDOSCOPY; Service: Gastroe nterology; Laterality: N/A; No [...] 508 QTC Calculation (Bezet) 444 Calculated P [place] 44 Calculated R [place] 49 Calculated T [place] 63 Diagnosis Value: Baseline Artifact Sinus bradycardia [...] Discharge Instructions Diet cardiac diabetic Follow up: Edin Gutiérrez DO Schedule an appointment as soon as possible for a visit in 1 week Howie Gibson MD [address] [facility] [address] Schedule an appointment as soon as possible [...] are the prescriptions that you need to poultry picker. You may get these medications from any pharmacy. omeprazole 20 MG capsule Information on where to get these meds is not yet available. Ask your nurse or doctor. aspirin 81 MG chewable tablet Discharge took more than 35 minutes, to include final examination, discussion of admission, and preparation of prescriptions, instructions for on-going care, follow-up and documentati on of discharge summary. TRENT MUKHERJEE MD 05/27/2013 documented in this encounter [...] Note by Yanna Flores RN at 05/27/13 1546 Author: Yanna Flores RN Service: (none) Author Type: Registered Nurse Filed: 05/27/13 1545 Date of Service: 05/27/131543 Status: Signed Pipe Inspector: Yanna Flores RN (Registered Nurse) Patient eager to discharge home. DC instructions reviewed with patient and states boby cash. Telemetry unit notified of patient to discharge [...] Date of Service: 05/27/13 1500 Status: Signed Pipe Inspector: Yanna Flores RN (Registered Nurse) Pt has been feeling unwell for about three hrs, bp 170s-220s and dry heaving, but insists o n going home. 05/27/2013 3:01 PM YANNA FLORES RN onver ivana Transaction, Provider Unknown - 05/27/2013 9:02 AM PDT Case Management by QUINN Bansal at 05/27/13901 Author: QUINN Bansal Service: (none) Author Type: Custom Stock Maker Filed: 05/27/13902 Date of Service: 05/27/13901 Status: Signed Pipe Inspector: QUINN Bansal (Custom Stock Maker) Pt is a resident of [facility] and will return there upon discharge. CM faxed pt's current info to [facility] and will continue to coordinate with them. 05/27/13855 Discharge Planning Evaluation Admitting Diagnosis Chest Pain Readmission No Type of Residence Assisted living;Other (Comment) ([facility]) Bathrooms on 1st Floor 1-Full Caregiver after Discharge Yes Relationship to Patient [facility] Staff Mental Status Oriented Anticipated Discharge Plan Post Acute Care Needs None at this time Resources Financial concerns No Transportation issues No Patient/Family concerns No Prescription Plan Yes Anticipated Disposition Facility Type Assisted living/Adult family home Met with: Patient and discussed discharge planning, Pt is a 57 y.o., male Patient's PCP is: EDIN GUTIÉRREZ Patient's insurance: Medicare Coverage concerns: None Medication coverage/concerns: None Community resources utilized / needed: None Assistance in transportation: Not needed. Identification of any specific education / training: None Barriers to Discharge / Alternative housing needed: None Anticipated DCP: Jarvissherrard onver ivana Transaction, Provider Unknown - 05/26/2013 6:43 PM PDT Progress Notes by Brandi Moser RPH at 05/26/131842 Author: Brandi Moser RPH Service: (none) Author Type: Pharmacist Filed: 05/26/131842 Date of Service: 05/26/131842 Status: Signed Pipe Inspector: Brandi Moser RPH (Pharmacist) Clinical Pharmacy Note: [...] renal function and adjust accordingly. Brandi Moser, [facility] 05/26/2013 6:43 PM docume nted in this encounter H&P Notes Bruno Pearson MD - 05/26/2013 3:32 PM PDTFormatting of this note might be different f rom the original. H&P by Bruno Pearson MD at 05/26/131531 Author: Bruno Pearson MD Service: (none) Author Type: Physician Filed: 05/26/132055 Date of Service: 05/26/131531 Status: Addendum Pipe Inspector: Bruno Pearson MD (Physician) Related Notes: Original Note by Bruno Pearson MD (Physician) filed at 05/26/132051 [facility] Service: Hospitalist Admission History & Physical Pt: Norah Gr AGE/SEX: 57 y.o. male ROOM: PCP: EDIN GTUIÉRREZ : 1955 TODAY'S DATE: 05/26/2013 Date of [...] fibrillation, Developmentally delayed and lives in a long-term. Patient was at worship today when he had substernal chest pain [...] cers. He had this nodule removed in [facility] in [place]. Dr. Gibson from GI used to f [...] - CHOLECYSTECTOMY; Surgeon: Jevon Vargas DO; Location: [facility] MAIN OR; Service: General; Laterality: N/A; Abdominal surgery Cholecystectomy Skin cancer excision 10/10/2012 Procedure: EXCISION - SKIN CANCER; Surgeon: Sy Fierro MD; Location: [facility] MAIN OR ; Service: Plastics; Laterality: Left; upper arm and upper back w/frozen section Esophagogastroduodenoscopy 03/03/2013 Procedure: ESOPHAGOGASTRODUODENOSCOPY; Surgeon: Howie Gibson MD; Location: [facility] ENDOSCOPY; S ervice: Gastroenterology; Laterality: N/A; Colonoscopy 03/04/2013 Procedure: COLONOSCOPY; Surgeon: Howie Gibson MD; Location: [facility] ENDOSCOPY; Service: Gastroe nterology; Laterality: [...] lungs ev wilbert 12 (twelve) hours. 09/14/12 Trent Mukherjee MD HYDROcodone-acetaminophen (NORCO) 5-325 MG per [...] angiographic MIP reconstructions were performed by technical sales manager nologist. No 3-D imaging. IV contrast: 60 [...] and gastric nodule removed last month in [place], I called Dr. Borja gas combustion engineer GI commercial solar sales consultant, who advised to observe H/H and [...] Code Status: Prior Primary Care Physician: EDIN GUTIÉRREZ Time spent for admission is 70 minutes. Bruno Pearson MD 05/26/2013 3:32 PM documented in this encounter Consult Notes Modesta Borja - 05/26/2013 7:10 PM PDT Consults by Modesta Borja MD at 05/26/131909 Author: Modesta Borja MD Service: Gastroenterology Author Type: Physician Filed: 05/27/13 1508 Date of Service: 05/26/131909 Status: Signed Pipe Inspector: Modesta Borja MD (Physician) [facility] Service: Gastroenterology Initial Consult Note Date of Admission: 05/26/2013 Reason for Consultation: GI bleeding Requesting Physician: Dr. Pearson History Obtained From: patient HISTORY OF PRESENT ILLNESS The patient is a 57 y.o. male with significant past medical history of diabetes mellitus, h ypertension, hyperlipidemia, obstructive sleep apnea noncompliant with CPAP, paroxysmal atri al fibrillation on Plavix, Developmentally delayed and lives in a long-term; who was admitt ed with chest pain [...] ulcers. He had this nodule removed i [facility] in [place]. Dr. Gibson from GI used to follow [...] - CHOLECYSTECTOMY; Surgeon: Jevon Vargas DO; Location: [facility] MAIN OR; Service: General; Laterality: N/A; Abdominal surgery Cholecystectomy Skin cancer excision 10/10/2012 Procedure: EXCISION - SKIN CANCER; Surgeon: Sy Fierro MD; Location: [facility] MAIN OR ; Service: Plastics; Laterality: Left; upper arm and upper back w/frozen section Esophagogastroduodenoscopy 03/03/2013 Procedure: ESOPHAGOGASTRODUODENOSCOPY; Surgeon: Howie Gibson MD; Location: [facility] ENDOSCOPY; S ervice: Gastroenterology; Laterality: N/A; Colonoscopy 03/04/2013 Procedure: COLONOSCOPY; Surgeon: Howie Gibson MD; Location: [facility] ENDOSCOPY; Service: Gastroe nterology; Laterality: N/A; No [...] Narrative Lives in long-term, IADL, full code PHYSICAL EXAM Vital Signs: [...] discussed my recommendations with the attending physician. MODESTA BORJA MD 05/27/2013 [facility] Conversion Transaction, Provider Unknown - 05/26/2013 3:51 PM PDTFormatting of this note m ight be different from the original. ED Notes by Maria Ines Boyce RN at 05/26/13 155 Author: Maria Ines Boyce RN Service: (none) Author Type: Registered Nurse Filed: 05/26/131551 Date of Service: 05/26/131550 Status: Signed Pipe Inspector: Maria Ines Boyce RN (Registered Nurse) PT is asking for food Again. Hospitalist agrees he can eat. Maria Ines Boyce RN 05/26/131551 onver ivana Transaction, Provider Unknown - 05/26/2013 3:30 PM PDT ED Notes by Maria Ines Boyce RN at 05/26/13 153 Author: Maria Ines Boyce RN Service: (none) Author Type: Registered Nurse Filed: 05/26/13 153 Date of Service: 05/26/131529 Status: Signed Pipe Inspector: Maria Ines Boyce RN (Registered Nurse) Jesus Manuel called and the nurse will be faxing the medications (MAR) as it was not brought wit h him on transport. Pts only concern at this time is that he wants to eat "cause Im hungry a nd diabetic..I dont want to go into a coma" Maria Ines Boyce RN 05/26/13 1531 ONDAHodgjess , Ashu Leyva MD - 05/26/2013 10:29 AM PDTFormatting of this note might be different from th e original. ED Provider Notes by Ashu Bobo MD at 05/26/13 1029 Author: Ashu Bobo MD Service: (none) Author Type: Physician Filed: 05/26/13 1500 Date of Service: 05/26/13 1029 Status: Signed Pipe Inspector: Ashu Bobo MD (Physician) Additional Documentation Procedures [facility] Department of Emergency Medicine History of Present Illness Patient Identification Norah Gr is a 57 y.o. male. Patient information was obtained from patient. History/Exam limitations: none. Patient presented to the Emergency Department by: [facility] 1724 Chief Complaint Chief Complaint Patient presents with Chest Pain "sharp" pain all the way through to his back GI Bleeding pt reports "dark and tarry" stools for past several days The patient complains of chest pain. Onset of symptoms was this morning just LOOM OVERHAULER, with a(n) partially resolving course since that time. The discomfort is described as "sharp", locate d in the central, substernal area with no reported radiation. The onset of symptoms occure d while the patient was going to worship. The patient also complains of the following [...] testing: Yes, last was last month. PCP: EDIN GUTIÉRREZ Past Medical History Diagnosis [...] - CHOLECYSTECTOMY; Surgeon: Jevon Vargas DO; Location: [facility] MAIN OR; Service: General; Laterality: N/A; Abdominal surgery Cholecystectomy Skin cancer excision 10/10/2012 Procedure: EXCISION - SKIN CANCER; Surgeon: Sy Fierro MD; Location: [facility] MAIN OR ; Service: Plastics; Laterality: Left; upper arm and upper back w/frozen section Esophagogastroduodenoscopy 03/03/2013 Procedure: ESOPHAGOGASTRODUODENOSCOPY; Surgeon: Howie Gibson MD; Location: [facility] ENDOSCOPY; S ervice: Gastroenterology; Laterality: N/A; Colonoscopy 03/04/2013 Procedure: COLONOSCOPY; Surgeon: Howie Gibson MD; Location: [facility] ENDOSCOPY; Service: Gastroe nterology; Laterality: [...] lungs ev wilbert 12 (twelve) hours. 09/14/12 Trent Mukherjee MD HYDROcodone-acetaminophen (NORCO) 5-325 MG per [...] the associated patient care plan. Laboratory Evaluation [facility] CARD PANEL W/O TRP (ED ONLY) - Abnormal; Notable for the following: HGB 12.5 (*) Testing performed at [facility];[address] [facility] [address] HCT 38.1 (*) Testing performed at [facility];[address];[place] [address] GLUCOSE 216 (*) Testing performed at [facility];[address] [place] [address];[place] [address] CALCIUM 8.3 (*) Testing performed at [facility];[address] [place] [address];[place] [address] Albumin 3.2 (*) Testing performed at [facility];[address] [place] [address];[place] [address] A/G 0.9 (*) Testing performed at [facility];[address];[place] [address] MMB 3.9 (*) Testing performed at [facility];[address] [facility];[place] [address] All other components within normal limits D-DIMER, QUANTITATIVE - Abnormal; Notable for the following: D DIMER, QUANTITATIVE 1.12 (*) All other components within normal limits TYPE AND SCREEN POC CARDIAC TROPONIN 12-lead ECG: Time of exam 0925. Interpreted independently by me. Rate: 51. Rhythm: sinu s bradycardia. Ectopy: none. Washington: nml. Intervals: nml. Infarct/Ischemia: global T-wave flattening. [...] embolism. 2. Status post cholecystectomy. Narrative: NORAH Andrea GR [address] CHEST PULMONARY EMBOLISM W CONTRAST 05/26/2013 2:24 PM HISTORY: Chest pain with elevation of d-dimer COMPARISON: 04/18/13 TECHNIQUE: 1.5-mm axial images of the chest were acquired in the arterial phase according to a CT nica ography protocol. Coronal CT angiographic MIP reconstructions were performed by [facility]. No 3-D imaging. IV contrast: 60 mL [...] 05/26/13917 Date of Service: 05/26/13917 Status: Signed Pipe Inspector: Jenniffer Guerra RN (Registered Nurse) Bed:13
Expected date:
Expected time:
Means of arrival:
Comments:
cp docume nted in this encounter Plan of Treatment +--------+---------+ + + + | Date | Type | Specialty | Care Team | Description | +--------+---------+ + + + | 09/10/ | Office | Geriatric Medicine | Mireya Pack, | | | 2019 | Visit | | RETAIL LOSS PREVENTION INVESTIGATOR [address] | | | | | | [address] [place], | | | | | | [place] [address] | | | | | | [phone] | | | | | | | | +--------+---------+ + + + | 09/29/ | Office | Urology | Mireya Pack, | | | 2019 | Visit | | RETAIL LOSS PREVENTION INVESTIGATOR [address] | | | | | | [facility] [address] [place] | | | | | | [place] [address] | | | | | | [phone] | | | | | | | | | | | | Toy Wild DO | | | | | | [address] | | | | | | [place] [address] | | | | | | [phone] | | | | | | | [...] | | | | | | ACUTE VT Testing | | | | | | performed at [facility] | | | | | | [facility];[place], [place] | | | | | | [address] | | | | + + + [...] | | Fingerstick | performed at [facility];[address] | | LAB | | | | [address];[place], [place] | | | | | | [address] | | | | + + + [...] Excursion: | | | 1.67 cm E-F Jennings: 0.03 m/s EPSS: 0.15 cm HR: 43.78 [...] | | | 0.22 m/s TV Dec Jennings: 2.25 m/s2 TV Dec Time: 269.79 ms TV E | | | Mick: 0.60 m/s TV E/A Ratio: 2.70 Freight Team Associate: ANA | | | Authenticated by: Memo Dahl MD Report Date/Time: 05-27-2013 | | | 17:05:49 | | + + + + + | Procedure Note | + + | Richard, Rad Conversion - 09/21/2018 3:31 PM PDT Patient Name: Sim GR of | | : 1955 Performing Physician: Memo Dahl | | INDICATIONS a | | bnormal ekg CONCLUSIONS [...] (A-L): | | 39.51 ml/m2LAAd A2C: 22.64 [id number] A-L A2C: 77.61 mlLAEDV MOD A2C: 72.93 mlLALd | | A2C: 5.60 cmLAAd A4C: 26.05 [id number] A-L A4C: 92.77 mlLAEDV MOD A4C: 82.64 | | mlLALd A4C: 6.21 cmAo Diam: 3.82 cmAV Cusp: 2.26 cmLA Diam: 4.72 cmLA/Ao: | | 1.23D-E Excursion: 1.67 cmE-F Jennings: 0.03 m/sEPSS: 0.15 cmHR: 43.78 BPMAV maxPG: | | 9.36 mmHgAV meanP.78 mmHgAV Vmax: 1.53 m/Jason Vmean: 0.90 m/Jason VTI: 32.73 | | cmAVA Vmax: 2.61 cm2AVA (VTI): 3.03 [id number] Dopp: 1.98 l/[id number] Dopp: 4.49 | | l/minHR: 45.27 BPMLVOT [...] 1.48 m/sTV A Mick: 0.22 m/sTV Dec Jennings: 2.25 | | m/s2TV Dec Time: 269.79 msTV E Mick: 0.60 m/sTV E/A Ratio: 2.70 Freight Team Associate: | | GDAuthenticated by: Memo ANDERSONy[facility] Date/Time: 05-27-2013 17:05:49 IMPRESSION: 1. | | [...] | |D-E Excursion: 1.67 cm | |E-F Jennings: 0.03 m/s | |EPSS: 0.15 cm | [...] A Mick: 0.22 m/s | |TV Dec Jennings: 2.25 m/s2 | |TV Dec Time: 269.79 ms | |TV E Mick: 0.60 m/s | |TV E/A Ratio: 2.70 | | | |Freight Team Associate: ANA | |Authenticated by: Memo Dahl MD | [...] | | Fingerstick | performed at [facility];[address] | | LAB | | | | [address];[place] | | | | | | [address] | | | | + + + [...] | | | | | | ACUTE VT Testing | | | | | | performed at [facility];[address] | | | | | | [facility];[place], [place] | | | | | | [address] | | | | + + + [...] | LAB | | | | [address], | | | | | | [place] [address] | | | | + + + + + + | Non- | 4.83Comment: Testing | 4.20 - 5.70 | EXTERNAL | | | Red Blood | performed at [facility], [address] | M/uL | LAB | | | Cells | [address], | | | | | Counted | [place] [address] | | | | + + + + + + | Hemoglobin | 13.0 (L)Comment: Testing | 13.2 - 17.0 | EXTERNAL | | | | performed at [facility], [address] | g/dL | LAB | | | | [address], | | | | | | [place] [address] | | | | + + + + + + | Hematocrit, | 40.3Comment: Testing | 39.0 - 50.0 % | EXTERNAL | | | POC | performed at [facility], [address] | | LAB | | | | [address], | | | | | | [place] [address] | | | | + + + + + + | MCV | 83.4Comment: Testing | 80.0 - 100.0 fl | EXTERNAL | | | | performed at [facility], [address] | | LAB | | | | [address], | | | | | | [place] [address] | | | | + + + + + + | MCH | 26.9 (L)Comment: Testing | 27.0 - 34.0 pg | EXTERNAL | | | | performed at [facility], [address] | | LAB | | | | [address], | | | | | | [place] [address] | | | | + + + + + + | MCHC | 32.3Comment: Testing | 32.0 - 35.5 | EXTERNAL | | | | performed at [facility], [address] | g/dL | LAB | | | | [address], | | | | | | [place] [address] | | | | + + + + + + | RDW-CV | 43.8Comment: Testing | 37 - 53 fl | EXTERNAL | | | | performed at [facility], [address] | | LAB | | | | [address], | | | | | | [place] [address] | | | | + + + + + + | Platelet | 223Comment: Testing | 150 - 400 K/uL | EXTERNAL | | | Count | performed at [facility], [address] | | LAB | | | Plasma | [address], | | | | | | [place] [address] | | | | + + + + + + | MPV | 7.6Comment: Testing | fl | EXTERNAL | | | | performed at [facility], [address] | | LAB | | | | [address], | | | | | | [place] [address] | | | | + + + + + + | Differentia | AUTOMATEDComment: | | EXTERNAL | | | l Type | Testing performed at | | LAB | | | | [facility], [address] | | | | | | [place] | | | | | | [address] | | | | + + + + + + | % Segmented | 53.9Comment: Testing | % | EXTERNAL | | | | performed at [facility], [address] | | LAB | | | Neutrophils | [address], | | | | | | [place] [address] | | | | + + + + + + | % | 30.9Comment: Testing | % | EXTERNAL | | | Lymphocytes | performed at [facility], [address] | | LAB | | | | [address], | | | | | | [place] [address] | | | | + + + + + + | % Monocytes | 10.3Comment: Testing | % | EXTERNAL | | | | performed at [facility], [address] | | LAB | | | | [address], | | | | | | [place] [address] | | | | + + + + + + | % | 4.3Comment: Testing | % | EXTERNAL | | | Eosinophils | performed at [facility], [address] | | LAB | | | | [address], | | | | | | [place] [address] | | | | + + + + + + | % Basophils | 0.6Comment: Testing | % | EXTERNAL | | | | performed at [facility], [address] | | LAB | | | | [address], | | | | | | [place] [address] | | | | + + + + + + | Absolute | 4.5Comment: Testing | 1.9 - 7.4 K/uL | EXTERNAL | | | Segmented | performed at [facility], [address] | | LAB | | | Neutrophils | [address], | | | | | | [place] [address] | | | | + + + + + + | Absolute | 2.6Comment: Testing | 1.0 - 3.9 K/uL | EXTERNAL | | | Lymphocytes | performed at [facility], [address] | | LAB | | | | [address], | | | | | | [place] [address] | | | | + + + + + + | Absolute | 0.9 (H)Comment: Testing | 0 - 0.8 K/uL | EXTERNAL | | | Monocytes | performed at [facility], [address] | | LAB | | | | [address], | | | | | | [place] [address] | | | | + + + + + + | Absolute | 0.4Comment: Testing | 0 - 0.5 K/uL | EXTERNAL | | | Eosinophils | performed at [facility], [address] | | LAB | | | | [address], | | | | | | [place] [address] | | | | + + + + + + | Absolute | 0.0Comment: Testing | 0 - 0.1 K/uL | EXTERNAL | | | Basophils | performed at [facility], [address] | | LAB | | | | [address], | | | | | | [place] [address] | | | | + + + + + + | RBC | Comment: 1+ | | EXTERNAL | | | Morphology | HypochromiaTesting | | LAB | | | | performed at [facility], [address] | | | | | | [address], | | | | | | [place] [address] | | | | + + + [...] EXTERNAL | | | | performed at [facility], [address] | | LAB | | | | [address], | | | | | | [place] [address] | | | | + + + [...] EXTERNAL | | | | performed at [facility], [address] | | LAB | | | | [address], | | | | | | [place] [address] | | | | + + + [...] | EXTERNAL | | | A1c | [place] [facility] | | LAB | | | [...] | | | | | performed at [facility], [address] | | | | | | [address], | | | | | | [place] [address] | | | | + + + [...] | | | | | performed at [facility], [address] | | | | | | [address], | | | | | | [place] [address] | | | | + + + [...] | | | | | [place] [address] | | | | + + + + + + | K | 3.9Comment: Testing | 3.5 - 4.9 | EXTERNAL | | | | performed at [facility], [address] | mmol/L | LAB | | | | [address], | | | | | | [place] [address] | | | | + + + + + + | Cl | 104Comment: Testing | 99 - 109 mmol/L | EXTERNAL | | | | performed at [facility], [address] | | LAB | | | | [address], | | | | | | [place] [address] | | | | + + + + + + | CO2 | 29Comment: Testing | 23 - 32 mmol/L | EXTERNAL | | | | performed at [facility], [address] | | LAB | | | | [address], | | | | | | [place] [address] | | | | + + + + + + | Anion Gap | 8Comment: Testing | 5 - 20 mmol/L | EXTERNAL | | | | performed at [facility], [address] | | LAB | | | | [address], | | | | | | [place] [address] | | | | + + + + + + | Glucose, | 176 (H)Comment: Testing | 65 - 99 mg/dL | EXTERNAL | | | Fasting | performed at [facility], [address] | | LAB | | | | [address], | | | | | | [place] [address] | | | | + + + + + + | BUN | 18Comment: Testing | 8 - 25 mg/dL | EXTERNAL | | | | performed at [facility], [address] | | LAB | | | | [address], | | | | | | [place] [address] | | | | + + + + + + | Creatinine | 1.24Comment: Testing | 0.70 - 1.30 | EXTERNAL | | | | performed at [facility], [address] | mg/dL | LAB | | | | [address], | | | | | | [place] [address] | | | | + + + + + + | BUN/Creatin | 15Comment: Testing | | EXTERNAL | | | ine Ratio | performed at [facility], [address] | | LAB | | | | [address], | | | | | | [place] [address] | | | | + + + + + + | Calcium | 9.0Comment: Testing | 8.5 - 10.2 | EXTERNAL | | | | performed at [facility], [address] | mg/dL | LAB | | | | [address], | | | | | | [place] [address] | | | | + + + [...] Jenkins, | | | | | | [place] [address] | | | | + + + [...] | | | | | | ACUTE VT Testing | | | | | | performed at [facility];[address] | | | | | | [address];[place] | | | | | | [address] | | | | + + + [...] | | Fingerstick | performed at [facility];[address] | | LAB | | | | [address];[place], [place] | | | | | | [address] [...] | | | reconstructions were performed by lead radiologic technologist. No 3-D imaging. IV | | | [...] Rad Conversion - 09/21/2018 3:31 PM SHALONDA [id number] years MaleCT | | CHEST PULMONARY EMBOLISM W CONTRAST05/26/2013 2:24 PM HISTORY: Chest pain with elevation | | of d-dimer COMPARISON: 04/18/13 TECHNIQUE:1.5-mm axial images of the chest were acquired | | in the arterial phase according to a CT angiography protocol. Coronal CT angiographic | | MIP reconstructions were performed by lead radiologic technologist. No 3-D imaging.IV contrast: 60 mL | [...] - 09/21/2018 3:31 PM PDT NORAH Andrea [id number] years MaleXR | | CHEST 2 VIEW [...] LAB | | | | Blvd;[place] [address] | | | | + + + + + + | Antibody | NEGATIVE | | EXTERNAL | | | Screen | | | LAB | | + + + + + + | Antibody | Testing performed at | | EXTERNAL | | | Screen | [facility];[address] | | LAB | | | | [address];[place] [address] | | | | + + + + + + | BB BAND | [id number] | | EXTERNAL | | | | | | LAB | | + + + + + + | BB BAND | Testing performed at | | EXTERNAL | | | | [facility];[address] [facility] | | LAB | | | | Blvd;[place] [address] | | | | + + + [...] | | | | performed at [facility];[address] | | LAB | | | | [address];[place] | | | | | | [address] | | | | + + + + + -+ | Non- | 4.61Comment: Testing | 4.20 - 5.70 | EXTERNAL | | | Red Blood | performed at [facility];[address] | M/uL | LAB | | | Cells | [address];[place] | | | | | Counted | [address] | | | | + + + + + -+ | Hemoglobin | 12.5 (L)Comment: Testing | 13.2 - 17.0 | EXTERNAL | | | | performed at [facility];[address] | g/dL | LAB | | | | [address];[place] | | | | | | [address] | | | | + + + + + -+ | Hematocrit, | 38.1 (L)Comment: Testing | 39.0 - 50.0 % | EXTERNAL | | | POC | performed at [facility];[address] | | LAB | | | | [address];[place] | | | | | | [address] | | | | + + + + + -+ | MCV | 82.5Comment: Testing | 80.0 - 100.0 fl | EXTERNAL | | | | performed at [facility];[address] | | LAB | | | | [address];[place] | | | | | | [address] | | | | + + + + + -+ | MCH | 27.1Comment: Testing | 27.0 - 34.0 pg | EXTERNAL | | | | performed at [facility];[address] | | LAB | | | | [address];[place] | | | | | | [address] | | | | + + + + + -+ | MCHC | 32.9Comment: Testing | 32.0 - 35.5 | EXTERNAL | | | | performed at [facility];[address] | g/dL | LAB | | | | [address];[place] | | | | | | [address] | | | | + + + + + -+ | RDW-CV | 43.8Comment: Testing | 37 - 53 fl | EXTERNAL | | | | performed at [facility];[address] | | LAB | | | | [address];[place] | | | | | | [address] | | | | + + + + + -+ | Platelet | 241Comment: Testing | 150 - 400 K/uL | EXTERNAL | | | Count | performed at [facility];[address] | | LAB | | | Plasma | [address];[place] | | | | | | [address] | | | | + + + + + -+ | MPV | 7.2Comment: Testing | fl | EXTERNAL | | | | performed at [facility];[address] | | LAB | | | | [address];[place] | | | | | | [address] | | | | + + + + + -+ | Differentia | AUTOMATEDComment: | | EXTERNAL | | | l Type | Testing performed at | | LAB | | | | [facility];[address] | | | [address];[place] [address] | | | | + + + + + -+ | % Segmented | 63.4Comment: Testing | % | EXTERNAL | | | | performed at [facility];[address] | | LAB | | | Neutrophils | [address];[place] | | | | | | [address] | | | | + + + + + -+ | % | 24.4Comment: Testing | % | EXTERNAL | | | Lymphocytes | performed at [facility];[address] | | LAB | | | | [address];[place] | | | | | | [address] | | | | + + + + + -+ | % Monocytes | 8.9Comment: Testing | % | EXTERNAL | | | | performed at [facility];[address] | | LAB | | | | [address];[place] | | | | | | [address] | | | | + + + + + -+ | % | 3.0Comment: Testing | % | EXTERNAL | | | Eosinophils | performed at [facility];[address] | | LAB | | | | [address];[place] | | | | | | [address] | | | | + + + + + -+ | % Basophils | 0.3Comment: Testing | % | EXTERNAL | | | | performed at [facility];[address] | | LAB | | | | [address];[place] | | | | | | [address] | | | | + + + + + -+ | Absolute | 5.0Comment: Testing | 1.9 - 7.4 K/uL | EXTERNAL | | | Segmented | performed at [facility];[address] | | LAB | | | Neutrophils | [address];[place] | | | | | | [address] | | | | + + + + + -+ | Absolute | 1.9Comment: Testing | 1.0 - 3.9 K/uL | EXTERNAL | | | Lymphocytes | performed at [facility];[address] | | LAB | | | | [address];[place] | | | | | | [address] | | | | + + + + + -+ | Absolute | 0.7Comment: Testing | 0 - 0.8 K/uL | EXTERNAL | | | Monocytes | performed at [facility];[address] | | LAB | | | | [address];[place] | | | | | | [address] | | | | + + + + + -+ | Absolute | 0.2Comment: Testing | 0 - 0.5 K/uL | EXTERNAL | | | Eosinophils | performed at [facility];[address] | | LAB | | | | [address];[place] | | | | | | [address] | | | | + + + + + -+ | Absolute | 0.0Comment: Testing | 0 - 0.1 K/uL | EXTERNAL | | | Basophils | performed at [facility];[address] | | LAB | | | | [address];[place] | | | | | | [address] | | | | + + + + + -+ | Na | 139Comment: Testing | 135 - 143 | EXTERNAL | | | | performed at [facility];[address] | mmol/L | LAB | | | | [address];[place] | | | | | | [address] | | | | + + + + + -+ | K | 4.0Comment: Testing | 3.5 - 4.9 | EXTERNAL | | | | performed at [facility];[address] | mmol/L | LAB | | | | [address];[place] | | | | | | [address] | | | | + + + + + -+ | Cl | 104Comment: Testing | 99 - 109 mmol/L | EXTERNAL | | | | performed at [facility];[address] | | LAB | | | | [address];[place] | | | | | | [address] | | | | + + + + + -+ | CO2 | 30Comment: Testing | 23 - 32 mmol/L | EXTERNAL | | | | performed at [facility];[address] | | LAB | | | | [address];[place] | | | | | | [address] | | | | + + + + + -+ | Anion Gap | 9Comment: Testing | 5 - 20 mmol/L | EXTERNAL | | | | performed at [facility];[address] | | LAB | | | | [address];[place] | | | | | | [address] | | | | + + + + + -+ | Glucose, | 216 (H)Comment: Testing | 65 - 99 mg/dL | EXTERNAL | | | Fasting | performed at [facility];[address] | | LAB | | | | [address];[place] | | | | | | [address] | | | | + + + + + -+ | BUN | 16Comment: Testing | 8 - 25 mg/dL | EXTERNAL | | | | performed at [facility];[address] | | LAB | | | | [address];[place] | | | | | | [address] | | | | + + + + + -+ | Creatinine | 1.24Comment: Testing | 0.70 - 1.30 | EXTERNAL | | | | performed at [facility];[address] | mg/dL | LAB | | | | [address];[place] | | | | | | [address] | | | | + + + + + -+ | BUN/Creatin | 13Comment: Testing | | EXTERNAL | | | ine Ratio | performed at [facility];[address] | | LAB | | | | [address];[place] | | | | | | [address] | | | | + + + + + -+ | Calcium | 8.3 (L)Comment: Testing | 8.5 - 10.2 | EXTERNAL | | | | performed at [facility];[address] | mg/dL | LAB | | | | [address];[place] | | | | | | [address] | | | | + + + + + -+ | Protein, | 6.9Comment: Testing | 6.3 - 8.2 g/dL | EXTERNAL | | | Total | performed at [facility];[address] | | LAB | | | | [address];[place] | | | | | | [address] | | | | + + + + + -+ | Albumin | 3.2 (L)Comment: Testing | 3.6 - 5.0 g/dL | EXTERNAL | | | | performed at [facility];[address] | | LAB | | | | [address];[place] | | | | | | [address] | | | | + + + + + -+ | Globulin | 3.7Comment: Testing | 1.3 - 4.9 g/dL | EXTERNAL | | | | performed at [facility];[address] | | LAB | | | | [address];[place] | | | | | | [address] | | | | + + + + + -+ | A/G Ratio | 0.9 (L)Comment: Testing | 1.0 - 2.4 | EXTERNAL | | | | performed at [facility];[address] | | LAB | | | | [address];[place] | | | | | | [address] | | | | + + + + + -+ | Bilirubin | 0.3Comment: Testing | 0.1 - 1.5 mg/dL | EXTERNAL | | | Total | performed at [facility];[address] | | LAB | | | | [address];[place] | | | | | | [address] | | | | + + + + + -+ | ALP, | 74Comment: Testing | 35 - 115 U/L | EXTERNAL | | | External | performed at [facility];[address] | | LAB | | | | [address];[place] | | | | | | [address] | | | | + + + + + -+ | AST | 27Comment: Testing | 10 - 45 U/L | EXTERNAL | | | | performed at [facility];[address] | | LAB | | | | [address];[place] | | | | | | [address] | | | | + + + + + -+ | ALT | 25Comment: Testing | 10 - 65 U/L | EXTERNAL | | | | performed at [facility];[address] | | LAB | | | | [address];[place] | | | | | | [address] | | | | + + + [...] | | | | | at [facility];[address] | [address];[place] [address] | | | | + + + + + -+ | CK, Total | 117Comment: Testing | 55 - 400 U/L | EXTERNAL | | | | performed at [facility];[address] | | LAB | | | | [address];[place] | | | | | | [address] | | | | + + + [...] | | | | performed at [facility];[address] | | | | | | [address];[place] | | | | | | [address] | | | | + + + + + -+ | aPTT, | 24Comment: Testing | 23 - 32 seconds | EXTERNAL | | | Patient | performed at [facility];[address] | | LAB | | | | [address];[place] | | | | | | [address] | | | | + + + + + -+ | CK-MB | 3.9 (H)Comment: Testing | 0.5 - 3.6 ng/mL | EXTERNAL | | | | performed at [facility];[address] | | LAB | | | | [address];[place], [place] | | | | | | [address] | | | | + + + [...] | | | | performed at [facility];[address] | | | | | | [facility];[place], [place] | | | | | | [address] | | | | + + + [...] | | | | | ONLY, -COMPUTER ([id number]), | | | | | | editor magazine Leanna Cheng | | | | | [...] DM type 2 (diabetes mellitus, type 2) ([facility]) Type II or unspecified type diabetes | [...]
--- OUTSIDE RECORDS SUMMARY | ~2019-09-09 | XMS | Encounter Summary ---
Demographics + + + | Address | [address] | | | [place] [address] | + + + | Home Phone [...] Sammi Kohler | ECON | [place] [address] | | + + + + + Care Team Providers + +------+ + | Care [place] [employer] Lieutenant Name | Role | Phone | + +------+ + | Mik Diego DO | PCP | | + +------+ + Encounter Details +--------+ + + + + | Date | Type | Department | Care Team | Description | +--------+ + + + + | 10/16/ | Orders Only | [facility] | Conversion | | | 2015 | | CENTER | Transaction, | | | | | ANTICOAGULATION | Provider Unknown | | | | | [facility] [place] | [phone] | | | | | [address] | (Fax) | | | | | [place], [place] | | | | | | [address] | | | | | | [phone] | | | +--------+ + + + [...] Progress Notes by CITLALY Romo at 10/16/14 1637 Author: CITLALY Romo Service: (none) Author Type: Advanced Registered Nurse Zaina ctitioner Filed: 10/16/14 1437 Encounter Date: 10/16/2014 Status: Signed Natural Resources Instructor: CITLALY Romo (Advanced Registered Nurse Practitioner) S- Maintenance visit. INR check and warfarin dosing. Pt dosed warfarin as directed. No medication changes reported. No illnesses or ER visits. No increased bruising or bleeding. Pt reports having been in [facility] since he was seen last. However, his [...] | 2019 | Visit | | DATA PROCESSING SPECIALIST [address] | | | | | | [address] [place], | | | | | | [place] [address] | | | | | | [phone] | | | | | | | | +--------+---------+ + + + | 09/29/ | Office | Urology | Mireya Pack, | | | 2019 | Visit | | DATA PROCESSING SPECIALIST [address] | | | | | | [address] [place], | | | | | | [place] [address] | | | | | | [phone] | | | | | | | | | | | | Toy Wild, DO | | | | | | [address] | | | | | | [place] [address] | | | | | | [phone] | | | | | | | [...]
--- OUTSIDE RECORDS SUMMARY | ~2019-09-09 | XMS | Encounter Summary ---
Demographics + + + | Address | [address] | | | [place] [address] | + + + | Home Phone [...] Sammi Kohler | ECON | [place] [address] | | + + + + + Care Team Providers + +------+ + | Care Bread Racker Name | Role | Phone | + [...] + + | 12/12/ | Emergency | [facility] | Yaakov Bridges DO | Unstable angina | | 2019 - | | MEDICAL CENTER | [address] | (HCC) (Primary Dx); | | | | CLINICAL DECISION | [address], | Essential | | 12/13/ | | [address] | [place] [address] | hypertension; | | 2018 | | [place], [place] | [phone] | Elevated troponin; | | | | [address] | | Hypertensive urgency | | | | [phone] | Niles Dhaliwal MD | | | | | | [address] | | | | | | [place] [address] | | | | | | [phone] | | | | | | | | | | | | Jareth Curiel MD | | | | | | [address] | | | | | | [place] [address] | | | | | | [phone] | | | | | | | [...] - 12/13/2018 8:56 AM PST Patient: Norah Guzman : 1955 Date of Admission: 12/12/2018 Date [...] double checked his bubble packs to jayla bonilla that he was receiving the same medications [...] Pack NP [address] [facility] [address] In 1 week Hospital follow up Active [...] Everywhere.High Blood Pres sure (Hypertension), Discharge Instructions (Lithuanian)documented in this encounter Medications at Time of [...] | 4 | 11/08/19 | | | (ABILIFJesus) 5 mg | mouth Daily. | tablet [...] | | | use of insulin ([facility]) | | | | | | + [...] of this encounter Progress Notes Elmo Ramesh, [facility] - 12/12/2018 5:38 PM PSTRx Admission Medication History Note I have reviewed the medication history for appropriate doses obtained by: Pharmacy Medica tion History Education Reporter After reviewing the home medication list : I agree with the home medications list. Confirmed SUPERVISING DEPUTY medications with patient and insurance fill history. Adjusted SUPERVISING DEPUTY medications according to the deployment technician note below. - fenofibrate removed. Patient reports not filling in months, and has not taken in months. Recent fill for October that patient does not recognize. - taking insulin novolog 5 units TID before meals. Humalog removed. Please Review and Order Home Medications as necessary. Thanks ELMO RAMESH, [facility] 12/12/2018 17:36 Rx Medication History Education Reporter Note Patients Preferred Pharmacy has been updated in EPIC: yes Patients Allergies have been updated and marked as reviewed: yes Nitroglycerin and Vitamin b12 The following changes were made to the allergy list (if any): n/a Medication History provided by: Patient, Outside Pharmacy and [employer] Info Follow-up Issues: None- Pending Pharmacist [...] might be different fro m the original. [facility] Service: Hospitalist Admission History & Physical Pt: Norah Guzman AGE/SEX: 62 y.o. male ROOM: [id number] PCP: Mireya Pack NP : 1955 TODAY'S [...] CHOLECYSTECTOMY; Surgeon: Jevon Vargas DO; Location: [facility] MAIN OR; Service: General; Laterality: N/A; COLONOSCOPY COLONOSCOPY 03/04/2013 Procedure: COLONOSCOPY; Surgeon: Howie Gibson MD; Location: [facility] ENDOSCOPY; Service: Gastroen terology; Laterality: N/A; [...] SECTION; Surgeon: Sy murcia MD; Location: [facility] MAIN OR; Service: Plastics; Laterality: Left; forearm SKIN BIOPSY SKIN CANCER EXCISION Left 10/10/2012 Procedure: EXCISION - SKIN CANCER; Surgeon: Sy Fierro MD; Location: [facility] MAIN OR; Service: Plastics; Laterality: Left; upper arm and upper back w/frozen section UPPER GASTROINTESTINAL ENDOSCOPY UPPER GASTROINTESTINAL ENDOSCOPY 03/03/2013 Procedure: ESOPHAGOGASTRODUODENOSCOPY; Surgeon: Howie Gibson MD; Location: [facility] ENDOSCOPY; Se rvice: Gastroenterology; Laterality: N/A; [...] Lives alone x 1 wk, moved from [facility], , 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 2 [...] Impression No active disease. Signed by: Irina Guzman, Bhavin Sign Date/Time: 12/12/2018 11:31 AM EKG: no [...] NORM White MD 12/12/2018 14:11 Dictation software, OpenVPN, may have been used which may contain error for similar sounding words even after review. Personal communication requested for any clarification. Portions of this chart may have been copied from previous notes for continuity of care.Elec tronically signed by Niles Dhaliwal MD at 12/12/2018 4:40 PM PSTdocumented in this encount er ED Notes Yaakov Bridges DO - 12/12/2018 9:55 AM PST [facility] Department of Emergency Medicine 12/12/2018 9:55 History of Present Illness Patient Identification Norah Guzman is a 63 y.o. male. Patient information was obtained from patient. History/Exam limitations: none. Patient presented to the Emergency Department by: by private vehicle Primary care physician: Mireya Pack NP Chief Complaint Chief Complaint Patient presents with Chest Pain Syncope Norah Guzman is a 63 y.o. male patient who [...] CHOLECYSTECTOMY; Surgeon: Jevon Vargas DO; Location: [facility] MAIN OR; Service: General; Laterality: N/A; COLONOSCOPY COLONOSCOPY 03/04/2013 Procedure: COLONOSCOPY; Surgeon: Howie Gibson MD; Location: [facility] ENDOSCOPY; Service: Gastroen terology; Laterality: N/A; [...] SECTION; Surgeon: Sy murcia MD; Location: [facility] OR; Service: Plastics; Laterality: Left; forearm SKIN BIOPSY SKIN CANCER EXCISION Left 10/10/2012 Procedure: EXCISION - SKIN CANCER; Surgeon: Sy Fierro MD; Location: [facility] MA[facility] OR; Service: Plastics; Laterality: Left; upper arm and upper back w/frozen section UPPER GASTROINTESTINAL ENDOSCOPY UPPER GASTROINTESTINAL ENDOSCOPY 03/03/2013 Procedure: ESOPHAGOGASTRODUODENOSCOPY; Surgeon: Howie Gibson MD; Location: [facility] ENDOSCOPY; Se rvice: Gastroenterology; Laterality: N/A; SUPERVISING DEPUTY Home Medications Medication Sig acetaminophen (TYLENOL) 325 [...] Lives alone x 1 wk, moved from [facility], , 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 2 [...] end organ damage at this time (acute PA, aortic dissection, acute CVA, eclam psia, etc) [...] today the accepting service will continue to [facility] and provide clinical consideration regarding management of [...] stated today that he denied going to [facility] for his complaints this morning as he does not like them and prefers [facility]. Although this does in no way to [...] Component Value Ref Range Date/Time Troponin I [[id number]] (Abnormal) Collected: 12/12/18 1243 Order Status: Completed Specimen: Blood Updated: 12/12/18 1310 Troponin I 0.041 0.00 - 0.04 ng/mL Comprehensive Metabolic Panel [[id number]] (Abnormal) Collected: 12/12/18932 Order Status: Completed Specimen: [...] Estimated GFR >60 >60 mL/min/1.73m2 Troponin I [[id number]] Collected: 12/12/18932 Order Status: Completed Specimen: Blood Updated: 12/12/18 1000 Troponin I 0.031 0.00 - 0.04 ng/mL CBC with Differential [[id number]] (Abnormal) Collected: 12/12/18932 Order Status: Completed Specimen: [...] time 12/12/18 11:31:36 Final result by Bhavin Guzman MD (12/12/18 11:31:36) Impression: No active disease. Signed by: Irina Guzman, Bhavin Sign Date/Time: 12/12/2018 11:31 AM Narrative: [...] Interpretation: Time: 9:30 Rate: 78 Rhythm: Sinus [place]: Normal RICHARD: Normal QRS: Normal, narrow complex [...] to hospitalist service. Follow up: Follow-up Information Mierya Pack NP In 1 week. Specialty: Nurse Practitioner - Primary Care Why: Hospital follow up Contact information: [facility] [place] [address] Discharge Medications: Discharge Medication List as of [...] recognition system. The possibility of "sound alike" director cardiology errors, addition and/or deletions may occur. If [...] | | 2019 | Visit | | [address] | | | | | | [address] [place], | | | | | | [place] [address] | | | | | | [phone] | | | | | | | | +--------+---------+ + + + | 09/29/ | Office | Urology | Mireya Pack, | | | 2019 | Visit | | [address] | | | | | | [address] [place], | | | | | | [place] [address] | | | | | | [phone] | | | | | | | | | | | | [place], | | | | | | [address] | | | | | | [place] [address] | | | | | | [phone] | | | | | | | [...] | | | 2018 | | | 9:25 | | | [...] | | | 09:24? | | | SIMÓN, | | | NORAH | | | | | | M?MRN: | | | | | | [id number] | | | [id number] | | | riteri | | | [...] | | s M[facility] | | | [place] | | | [place] | | | [...] | | s M.C[facility] | | | [place] | | | [place] | | | [...] | 65 - 99 mg/dL | [facility] | | | POC | performed at [facility];[address] | | LABORATORY | | | | [address];[place] | | | | | | [address] | | | | + + + + + + + + | Specimen | + + | | + + + + + + + | Performing | Address | City/State/Zipcode | Phone Number | | Organization | | | | + + + + + | [facility] | [address] | [place] [address] | [phone] | + + + + + PTT (12/13/2018 6:02 AM PST) + + + + + + | Component | Value | Ref Range | Performed | Pathologist | | | | | At | Signature | + + + + + + | PTT | 38 (H)Comment: Testing | 23 - 32 seconds | [facility] | | | | performed at [facility];[address] | | LABORATORY | | | | [address];[place] | | | | | | [address] | | | | + + + + + + + + | Specimen | + + | Blood | + + + + + + + | Performing | Address | City/State/Zipcode | Phone Number | | Organization | | | | + + + + + | [facility] | [address] | [place] [address] | [phone] | + + + + + Lipid [...] | 65Comment: Testing | <100 mg/dL | [facility] | | | Calculated | performed at [facility], [address] | | LABORATORY | | | | [address], | | | | | | [place] [address] | | | | + + + + + + + + | Specimen | + + | Blood | + + + + + + + | Performing | Address | City/State/Zipcode | Phone Number | | Organization | | | | + + + + + | [facility] | [address] | [place] [address] | [phone] | + + + + + Magnesium (12/13/2018 6:02 AM PST) + + + + + + | Component | Value | Ref Range | Performed | Pathologist | | | | | At | Signature | + + + + + + | Magnesium | 2.0Comment: Testing | 1.7 - 2.4 mg/dL | [place] | | | | performed at [facility], [address] | | LABORATORY | | | | [address], | | | | | | [place] [address] | | | | + + + + + + + + | Specimen | + + | Blood | + + + + + + + | Performing | Address | City/State/Zipcode | Phone Number | | Organization | | | | + + + + + | [facility] | [address] | [place] [address] | [phone] | + + + + + CBC [...] | | | Absolute | performed at [facility], [address] | K/uL | LABORATORY | | | | [address], | | | | | | [place] [address] | | | | + + + + + + + + | Specimen | + + | Blood | + + + + + + + | Performing | Address | City/State/Zipcode | Phone Number | | Organization | | | | + + + + + | [facility] | [address] | [place] [address] | [phone] | + + + + + Comprehensive [...] | | | | | | [facility] traceable | | | | | | equation.Testing | | | | | | performed at [facility], [address] | | | | | | [facility], | | | | | | [place] [address] | | | | + + + + + + + + | Specimen | + + | Blood | + + + + + + + | Performing | Address | City/State/Zipcode | Phone Number | | Organization | | | | + + + + + | [facility] | [address] | [place] [address] | [phone] | + + + + + POC [...] | LABORATORY | | | | [address];[place], [place] | | | | | | [address] | | | | + + + + + + + + | Specimen | + + | | + + + + + + + | Performing | Address | City/State/Zipcode | Phone Number | | Organization | | | | + + + + + | [facility] | [address] | [place] [address] | [phone] | + + + + + Troponin [...] | | [facility];[address] [facility] | | | | | | [facility];[place] [address] | | | | + + + + + + + + | Specimen | + + | Blood | + + + + + + + | Performing | Address | City/State/Zipcode | Phone Number | | Organization | | | | + + + + + | [facility] | [address] [facility] | [place] [address] | [phone] | + + + + + POC Glucose (12/12/2018 9:56 PM PST) + + + + + + | Component | Value | Ref Range | Performed | Pathologist | | | | | At | Signature | + + + + + + | Glucose, | 237 (H)Comment: Testing | 65 - 99 mg/dL | [facility] | | | POC | performed at [facility];[address] | | LABORATORY | | | [address];[place] | | | | | | [address] | | | | + + + + + + + + | Specimen | + + | | + + + + + + + | Performing | Address | City/State/Zipcode | Phone Number | | Organization | | | | + + + + + | [facility] | [address] | [place] [address] | [phone] | + + + + + PTT (12/12/2018 8:17 PM PST) + + + + + + | Component | Value | Ref Range | Performed | Pathologist | | | | | At | Signature | + + + + + + | PTT | 33 (H)Comment: Testing | 23 - 32 seconds | [facility] | | | | performed at [facility];[address] | | LABORATORY | | | | [address];[place] | | | | | | [address] | | | | + + + + + + + + | Specimen | + + | Blood | + + + + + + + | Performing | Address | City/State/Zipcode | Phone Number | | Organization | | | | + + + + + | [facility] | [address] | [place] [address] | [phone] | + + + + + Troponin I (12/12/2018 5:55 PM PST) + + + + + + | Component | Value | Ref Range | Performed | Pathologist | | | | | At | Signature | + + + + + + | Troponin I | 0.038Comment: 0.04 | 0.00 - 0.04 | [facility] | | | | ng/mL or [...] [address] | [address] | [address];[place] [address] | | | | + + + + + + + + | Specimen | + + | Blood | + + + + + + + | Performing | Address | City/State/Zipcode | Phone Number | | Organization | | | | + + + + + | [facility] | [address] | [place] [address] | [phone] | + + + + + POC Glucose (12/12/2018 4:54 PM PST) + + + + + + | Component | Value | Ref Range | Performed | Pathologist | | | | | At | Signature | + + + + + + | Glucose, | 250 (H)Comment: Testing | 65 - 99 mg/dL | [facility] | | | POC | performed [...] + + + + + | [facility] | [address] | [place] [address] | [phone] | + + + + + Troponin [...] [address] | | | | | | [address];[place] [address] | | | | + + + + + + + + | Specimen | + + | Blood | + + + + + + + | Performing | Address | City/State/Zipcode | Phone Number | | Organization | | | | + + + + + | [facility] | [address] | [place] [address] | [phone] | + + + + + XR [...] Irina Guzman Shawn | | Sign Date/Time: 12/12/2018 11:31 [...] | | [facility];[address] [facility] | | | | | | [facility];[place] [address] | | | | + + + + + + + + | Specimen | + + | Blood | + + + + + + + | Performing | Address | City/State/Zipcode | Phone Number | | Organization | | | | + + + + + | [facility] | [address] | [place] [address] | [phone] | + + + + + Comprehensive [...] >60Comment: GFR <60: | >60 | [facility] | | | GFR | CHRONIC [...] | | | | | | [facility] traceable | | | | | | equation.Testing | | | | | | performed at [facility];[address] | | | | | | [facility];[place], [place] | | | | | | [address] | | | | + + + + + + + + | Specimen | + + | Blood | + + + + + + + | Performing | Address | City/State/Zipcode | Phone Number | | Organization | | | | + + + + + | [facility] | [address] [facility] [facility] | [place] [address] | [phone] | + + + + + CBC [...] (H)Comment: Testing | 0.00 - 0.10 | [facility] | | | Absolute | performed at [facility];[address] | [address] | LABORATORY | | | [address];[place], [place] | | | | | | [address] | | | | + + + + + + + + | Specimen | + + | Blood | + + + + + + + | Performing | Address | City/State/Zipcode | Phone Number | | Organization | | | | + + + + + | [facility] | [address] | [place] [address] | [phone] | + + + + + ECG [...] | | | | | ONLY, -COMPUTER (114), | | | | | | 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 map 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 FEDEIRCO ELDER | | | | | | ([id number]) on 12/13/2018 | | | | | [...] | | | | dose on Joselyn 12/13/18 at 0900 | | AM PST [...] 19 8:02 | | | | | Mon12/12/18 at 1615 | | AM PST [...] 19 10:36 | | | | | 11/6/19 at 1015, For 1 dose | | AM PST | | | | + +-------+ +--------+---+---+ + +---+ | | | + +---+ | dextrose 10% (D10W) infusion | | | at 50 mL/hr, Intravenous, | | | CONTINUOUS PRN, hypoglycemia, | | | Starting 12/12/18 at 1547, | | | Start infusion [...] Blood Sugar, Starting Wed | | | 12/12/18 at 1547, For [...] PST | | | | | ONCE, Mon12/12/18 at 1340, For 1 | | | [...] | | | for sbp >160, Starting Wed | | | | | [...] | | | | AC, NPO, Daytime 5613-1868 Use | | | | | | | NIGHT DOSE for doses scheduled: | | | | | | | HS, 3AM, Nighttime 6157-6222 | | | | | | | [...] | | | | | 12/12/18 at 1547, If | | | | | | | ineffective use Oxycodone if | | | | | | | ordered. If not tolerated use | | | | | | | [place] 10/325 if ordered., | | | | [...]
--- OUTSIDE RECORDS SUMMARY | ~2019-09-09 | XMS | Encounter Summary ---
Demographics + + + | Address | [address] | | | [place] [address] | + + + | Home Phone [...] | Sammi Kohler | ECON | [place] [address] | | + + + + + Care Team Providers + +------+ + | Care Online Community Manager Name | Role | Phone | [...] | Other | | 2020 | | [facility] [address] | | | | | [address] | | | | | | [place] | | | | | | [address] | | | | | | [phone] | | | +--------+ + + + [...] - 06/07/2019 3:49 PM PDTCall placed to [facility] ladonna abel, no answer, left VM with clinic phone number. elephone Encounter - Mireya Pack NP - 06/07/2019 3:4 8 PM PDTagree elephon e Encounter - Lucia Amos RN - 06/07/2019 2:19 PM PDTCall received from [facility] EVE ramsey, reporting that : Patient [...] pees in h is pants. Requesting for CERTIFIED WELLNESS PROGRAM MANAGER to go see patient, routed to PCP, [...] | | 2019 | Visit | | ENROLLMENT COORDINATOR [address] | | | | | | [address] [place], | | | | | | [place] [address] | | | | | | [phone] | | | | | | | | +--------+---------+ + + + | 09/29/ | Office | Urology | Mireya Pack, | | | 2019 | Visit | | ENROLLMENT COORDINATOR [address] | | | | | | [address] [place], | | | | | | [place] [address] | | | | | | [phone] | | | | | | | | | | | | [place], DO | | | | | | [address] | | | | | | [place] [address] | | | | | | [phone] | | | | | | | | +--------+---------+ + + + documented as of this encounter Visit Diagnoses Not on filedocumented in this encounter
--- OUTSIDE RECORDS SUMMARY | ~2019-09-09 | XMS | Encounter Summary ---
Demographics + + + | Address | [address] [facility] [facility] | | | [place] [address] | + + + | Home Phone [...] + | Author | [facility] | | | and [place] | + + + | Organization | [facility] | | | and [place] | + + + | Address | Unknown | + + + | Phone | Unavailable | + + + Support + + + + + | Name | Relationship | Address | Phone | + + + + + | Sammi Kohler | ECON | [place] [address] | | + + + + + Care Team Providers + +------+ + | Care Aerospace Physiological Technician Name | Role | Phone | [...] + + | 10/10/ | Emergency | [facility] | Radha, | Chest pain in adult | | 2019 | | MEDICAL CENTER | [address] | (Primary Dx); | | | | EMERGENCY CENTER | [address] | Uncontrolled | | | | [address] | [place] [address] | hypertension; | | | | [place], [place] | [phone] | Numbness and | | | | [address] | | tingling of left | | | | [phone] | Norah Calvo MD | leg; Type 2 diabetes | | | | | [address] | mellitus with | | | | | [place] [address] | hyperglycemia, with | | | | | [phone] | long-term current | | | | [...] through Care Everywhere.High Blood Pres sure, Controlling (Botswanan)documented in this encounter Medications at Time of [...] note might be different from the original. [facility] Department of Emergency [...] CHOLECYSTECTOMY; Surgeon: Jevon Vargas DO; Location: [facility] MAIN OR; Service: General; Laterality: N/A; COLONOSCOPY COLONOSCOPY 03/04/2013 Procedure: COLONOSCOPY; Surgeon: Howie Gibson MD; Location: [facility] ENDOSCOPY; Service: Gastroen terology; Laterality: N/A; HERNIA REPAIR 07/03/2013 Procedure: LAPAROSCOPIC - HERNIA - INCISIONAL; Surgeon: Jevon Vargas DO; Location: [facility] MAIN OR; Service: General; Laterality: N/A; KNEE SURGERY rt knee, patella LEG SURGERY LLE OTHER SURGICAL HISTORY UNLISTED PROCEDURE ARTHROSCOPY OTHER SURGICAL HISTORY Left 05/05/2014 SKIN LESION EXCISION - Procedure: EXCISION - LESION - FROZEN SECTION; Surgeon: Sy murcia MD; Location: [facility] MAIN OR; Service: Plastics; Laterality: Left; forearm SKIN BIOPSY SKIN CANCER EXCISION Left 10/10/2012 Procedure: EXCISION - SKIN CANCER; Surgeon: Sy Fierro MD; Location: [facility] MAIN OR; Service: Plastics; Laterality: Left; upper arm and upper back w/frozen section UPPER GASTROINTESTINAL ENDOSCOPY UPPER GASTROINTESTINAL ENDOSCOPY 03/03/2013 Procedure: ESOPHAGOGASTRODUODENOSCOPY; Surgeon: Hwoie Gibson MD; Location: [facility] ENDOSCOPY; Se rvice: Gastroenterology; Laterality: [...] General: Alert, non-toxic appearing, NAD, [facility] Head: atraumatic, normocephalic Eyes: Normal inspection, PERRL, [...] ketones Imaging: CXR, CT head ECG and surveillance system monitor Medication: Labetalol Discussed case with Dr. Calvo [...] Component Value Ref Range Date/Time Troponin I [[id number]] Collected: 10/10/18 1902 Order Status: Completed Specimen: Blood Updated: 10/10/18 1934 Troponin T 0.034 0.00 - 0.04 ng/mL Comprehensive Metabolic Panel [[id number]] (Abnormal) Collected: 10/10/18 1736 Order Status: Completed [...] Estimated GFR >60 >60 mL/min/1.73m2 Troponin I [[id number]] Collected: 10/10/181735 Order Status: Completed Specimen: Blood Updated: 10/10/18 1811 Troponin T 0.034 0.00 - 0.04 ng/mL Ketones, Serum [[id number]] Collected: 10/10/181735 Order Status: Completed Specimen: Blood Updated: 10/10/18 1801 Ketones, Blood NEGATIVE NEG CBC with Differential [[id number]] (Abnormal) Collected: 10/10/181735 Order Status: Completed Specimen: [...] 0.08 0.00 - 0.10 K/uL POC Glucose [[id number]] (Abnormal) Collected: 10/10/181734 Order Status: Completed Updated: [...] hyperglycemia, with long-term current use of insulin ([facility]) ED Disposition ED Disposition Condition Comment Discharge Stable Follow-up Information Schedule an appointment as soon as possible for a visit with Mik Diego DO. Specialty: Family Medicine Why: For recheck after your ER visit, For further evaluation and management Contact information: [address] [facility] [address] [facility] [id number] Go to [facility]. Specialty: Emergency Medicine Why: As needed if symptoms worsen Contact information: [address] [place] [phone] Discharge Medications: ED Prescriptions None Dianna [...] | | 2019 | Visit | | GREASE MACHINE WORKER [address] | | | | | | [address] [place], | | | | | | [place] [address] | | | | | | [phone] | | | | | | | | +--------+---------+ + + + | 09/29/ | Office | Urology | Mireya Pack, | | | 2019 | Visit | | GREASE MACHINE WORKER [address] | | | | | | [address] [place], | | | | | | [place] [address] | | | | | | [phone] | | | | | | | | | | | | Toy Wild, DO | | | | | | [address] | | | | | | [place] [address] | | | | | | [phone] | | | | | | | [...] + + | KETONES,SERUM | STAT | 10/10/2018 | | Results [...] | | | 2018 | | | 5:27 | | | [...] ON? | | | | | | 9 | | | 17:26? | | | SIMÓN | | | NORAH | | | | | | M?MRN: | | | | | | [id number] | | | [id number] | | | riteri | | | [...] | | [facility] | | | [place] | | | [place] | | | [...] | | [facility] | | | [place] | | | [place] | | | [...] | | [facility] [place] | | | [place] | | | [place] | | | [...] | | | [facility];[address] | | | | | | [address];[place] [address] | | | | + + + + + + + + | Specimen | + + | Blood | + + + + + + + | Performing | Address | City/State/Zipcode | Phone Number | | Organization | | | | + + + + + | [facility] | [address] | [place] [address] | [phone] | + + + + + XR [...] Note | + + | Richard, Joaquin Results In - 10/10/2018 6:37 PM PDT [...] + + | Performing | Address | City/State[facility] | Phone Number | | Organization [...] + + | Joaquin Ramos Results In - 10/10/2018 6:35 PM PDT [...] + + | Performing | Address | City/State/[facility] | Phone Number | | Organization [...] | | Blood | performed at [facility];[address] | | LABORATORY | | | | [address];[place], [place] | | | | | | [address] | | | | + + + + + + + + | Specimen | + + | Blood | + + + + + + + | Performing | Address | City/State/Zipcode | Phone Number | | Organization | | | | + + + + + | [facility] | [address] | [place] [address] | [phone] | + + + + + Troponin I (10/10/2018 5:36 PM PDT) + + + + + + | Component | Value | Ref Range | Performed | Pathologist | | | | | At | Signature | + + + + + + | Troponin I | 0.034Comment: 0.04 | 0.00 - 0.04 | [facility] | | | | ng/mL [...] | | [facility];[address] | | | | | | [facility];[place] [address] | | | | + + + + + + + + | Specimen | + + | Blood | + + + + + + + | Performing | Address | City/State/Zipcode | Phone Number | | Organization | | | | + + + + + | [facility] | [address] | [place] [address] | [phone] | + + + + + Comprehensive [...] | | | | | | [address];[place] | | | | | | [address] | | | | + + + + + + + + | Specimen | + + | Blood | + + + + + + + | Performing | Address | City/State/Zipcode | Phone Number | | Organization | | | | + + + + + | [facility] | [address] | [place] [address] | [phone] | + + + + + CBC [...] | | Absolute | performed at [facility];[address] | K/uL | LABORATORY | | | | [address];[place], [place] | | | | | | [address] | | | | + + + + + + + + | Specimen | + + | Blood | + + + + + + + | Performing | Address | City/State/Zipcode | Phone Number | | Organization | | | | + + + + + | [facility] | [address] | [place] [address] | [phone] | + + + + + POC Glucose (10/10/2018 5:35 PM PDT) + + + + + + | Component | Value | Ref Range | Performed | Pathologist | | | | | At | Signature | + + + + + + | Glucose, | 299 (H)Comment: Testing | 65 - 99 mg/dL | [facility] | | | POC | performed at [facility];[address] | | LABORATORY | | | | [address];[place] | | | | | | [address] | | | | + + + + + + + + | Specimen | + + | | + + + + + + + | Performing | Address | City/State/Zipcode | Phone Number | | Organization | | | | + + + + + | [facility] | [address] | [place] [address] | [phone] | + + + + + ECG [...] | | | | | ONLY, -COMPUTER ([id number]), | | | | | | editorial assistant Mel Bruno | | | | | [...] | | | | | Intravenous, ONCE, 10/10/18 at | | PM PDT | | | | | 1755, For 1 dose | | | | | | + +--------+ +-------+------+------+ +---+---+ | | | +---+---+ + +-------+ +--------+---+---+ | nitroglycerin (NITROSTAT) SL | Given | 10/11/19 | 0.4 mg | | | | tablet 0.4 mg 0.4 mg, | | 19 6:08 | | | | | Sublingual, ONCE, 10/10/18 at | | PM PDT | | | | | 1755, For 1 dose, Maximum of 3 | | | | | | | doses in 15 minutes., | | | | | | + +-------+ +--------+---+---+ +---+---+ | | | +---+---+ documented in this encounter
--- OUTSIDE RECORDS SUMMARY | ~2019-09-09 | XMS | Encounter Summary ---
Demographics + + + | Address | [address] | | | [place] [address] | + + + | Home Phone [...] Sammi Kohler | ECON | [place] [address] | | + + + + + Care Team Providers + +------+ + | Care Public Health Representative Name | Role | Phone | + +------+ + | Mik Diego DO | PCP | | + +------+ + Encounter Details +--------+ + + + + | Date | Type | Department | Care Team | Description | +--------+ + + + + | 11/06/ | Orders Only | [facility] | Conversion | | | 2015 | | CENTER | Transaction, | | | | | ANTICOAGULATION | Provider Unknown | | | | | CLIN[facility] [place] | | | | | | [address] | (Fax) | | | | | [place], [place] | | | | | | [address] | | | | | | [phone] | | | +--------+ + + + [...] 11/06/14 1328 Encounter Date: 11/06/2014 Status: Signed Cold Roll Packer Sheet Iron: CITLALY Romo (Advanced Registered Nurse Practitioner) S- Maintenance visit. INR check and warfarin dosing. Pt dosed warfarin as directed. No medication changes reported. No illnesses or ER visits. No increased bruising or bleeding. O- INR 2.1 A- Therapeutic INR P- Continue same dosage. Recheck INR in 3 weeks when pt returns from [place] documented in this encounter Plan of Treatment +--------+---------+ + + + | Date | Type | Specialty | Care Team | Description | +--------+---------+ + + + | 09/10/ | Office | Geriatric Medicine | Mireya Pack, | | | 2019 | Visit | | NORM [address] | | | | | | [address] [place], | | | | | | [place] [address] | | | | | | [phone] | | | | | | | | +--------+---------+ + + + | 09/29/ | Office | Urology | Mireya Pack, | | | 2019 | Visit | | MELT ROOM OPERATOR [address] | | | | | | [address] [place], | | | | | | [place] [address] | | | | | | [phone] | | | | | | | | | | | | Toy Wild, DO | | | | | | [address] | | | | | | [place] [address] | | | | | | [phone] | | | | | | | [...]
--- OUTSIDE RECORDS SUMMARY | ~2019-09-09 | XMS | Encounter Summary ---
Demographics + + + | Address | [address] | | | [place] [address] | + + + | Home Phone [...] Sammi Kohler | ECON | [place] [address] | | + + + + + Care Team Providers + +------+ + | Care Dusting And Brushing Machine Operator Name | Role | Phone [...] + + | 08/05/ | Telephone | [facility] | Mireya Pack, | Home Health | | 2020 | | [facility] [address] | FRUIT OR NUT CROPS FARM MANAGER [address] | | | | | [address] | [address] [place], | | | | | [place], [place] | [place] [address] | | | | | [address] | [phone] | | | | | [phone] | | | +--------+ + + + [...] - 08/06/2019 2:59 PM PDTCall [facility] to [facility]aff, no answer, left VM [...] essential hypertension. said that patient is noncompliant. HH found him with three bags of chips open, he was ea ting on the floor. HH reminded him of what he should be eating and patient got mad and told HH that he can eat whatever he wants. also said that patient refuses to go to [facility]. He will not leave his house/apt. Routed to PCP as MARY. elephone Encounter - Heidi Moody - 08/06/2019 12:31 PM [facility]. He went to ER today and he is not taking his medicati on. He is being non compliant Please call her at [phone] ,Heidi Moody documented in this enco unter Plan of Treatment +--------+---------+ + + + | Date | Type | Specialty | Care Team | Description | +--------+---------+ + + + | 09/10/ | Office | Geriatric Medicine | Mireya Pack, | | | 2019 | Visit | | FRUIT OR NUT CROPS FARM MANAGER [address] | | | | | | [address] [place] | | | | | | [place] [address] | | | | | | [phone] | | | | | | | | +--------+---------+ + + + | 09/29/ | Office | Urology | Mireya Pack, | | | 2019 | Visit | | FRUIT OR NUT CROPS FARM MANAGER [address] | | | | | | [address] [place] | | | | | | [place] [address] | | | | | | [phone] | | | | | | | | | | | | Toy Wild, DO | | | | | | [address] | | | | | | [place] [address] | | | | | | [phone] | | | | | | | | +--------+---------+ + + + documented as of this encounter Visit Diagnoses Not on filedocumented in this encounter"
--- OUTSIDE RECORDS SUMMARY | ~2019-09-09 | XMS | Encounter Summary ---
Demographics + + + | Address | [address] | | | [place] [address] | + + + | Home Phone [...] + | Sammi Kohler | ECON | [place] [address] | | + + + + + Care Team Providers + +------+ + | Care Car Refinisher Name | Role | Phone | + +------+ + PCP | Unavailable | + +------+ + Encounter Details +--------+ + + + + | Date | Type | Department | Care Team | Description | +--------+ + + + + | 07/29/ | Emergency | [facility] | Kristian Mae | Micturition syncope; | | 2015 | | [facility] | MD [address] | Fall, initial | | | | [facility] | [place], | encounter; Scalp | | | | [address] | [place] [address] | contusion, initial | | | | [place], [place] | [phone] | encounter | | | | [address] | | | | | | [phone] | | | +--------+ + + + [...] ED Notes Conversion Transaction, Provider Unknown - 07/29/2014 7:34 AM PDTFormatting of this note m ight be different from the original. ED Notes by Jaye Meraz at 07/29/14733 Author: Jaye Meraz Service: (none) Author Type: Hoop Expander Filed: 07/29/14733 Date of Service: 07/29/14733 Status: Signed Tire Changer Aircraft: Jaye Meraz (Hoop Expander) [facility] contacted [facility] between 0745 and 0800 . Jaye Meraz 07/29/14 0734 Ema Tamayo RN - 07/29/2014 7:23 AM PDTFormatting of this note might be different from th chad original. ED Notes by Hue Cruz RN at 07/29/14722 Author: Hue Cruz RN Service: (none) Author Type: Registered Nurse Filed: 07/29/14723 Date of Service: 07/29/14722 Status: Signed Tire Changer Aircraft: Hue Cruz RN (Registered Nurse) Walked in hallway. Tolerated well, steady on feet with minimal assisting. Now sitting in chair eating crackers and milk. Hue Cruz RN 07/29/14723 Kristian Vinson MD - 07/29/2014 5:54 AM PDTFormatting of this note might be different from the origina l. ED Provider Notes by Kristian Mae MD at 07/29/1454 Author: Kristian Mae MD Service: Emergency Department Author Type: Physician Filed: 08/02/14 1242 Date of Service: 07/29/14553 Status: Signed Tire Changer Aircraft: Kristian Mae MD (Physician) [facility] Department of Emergency Medicine 5:54 AM History of Present Illness Patient Identification Kevyn Guzman is a 58 y.o. male. Patient information was obtained from patient. History/Exam limitations: none. Patient presented to the Emergency Department by: Car Chief Complaint Chief Complaint Patient presents with Syncope while having BM, hx of Afib The patient presents to ED with complaints of syncope. Onset of symptoms was this AM, with a resolved course since that time. The symptoms are described to be of moderate severity. He reports that he fainted while in the bathroom this morning and hit his head on the toilet. The patient states that he is concerned because he is taking blood thinners. The patient als o complains of abd pain "cramps". Patient denies hematochezia, back pain, extremity pain, ne uro changes, or any other sx at this time. There was no care reported BUS MATRON. He states that sy ncope is relatively common for him and his main concern is the potential for ICH after hitti ng his head. 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 Past Surgical History Procedure Laterality Date Unlisted procedure arthroscopy Knee surgery rt knee, patella Leg surgery LLE Colonoscopy Cholecystectomy, laparoscopic 09/12/2012 Procedure: LAPAROSCOPIC - CHOLECYSTECTOMY; Surgeon: Jevon Vargas DO; Location: [facility]; Service: General; Laterality: N/A; Abdominal surgery Cholecystectomy Skin cancer excision 10/10/2012 Procedure: EXCISION - SKIN CANCER; Surgeon: Sy Fierro MD; Location: [facility] ; Service: Plastics; Laterality: Left; upper arm and upper back w/frozen section Esophagogastroduodenoscopy 03/03/2013 Procedure: ESOPHAGOGASTRODUODENOSCOPY; Surgeon: Howie Gibson MD; Location: [facility]; S ervice: Gastroenterology; Laterality: N/A; Colonoscopy 03/04/2013 Procedure: COLONOSCOPY; Surgeon: Howie Gibson MD; Location: [facility]; Service: Gastroe nterology; Laterality: N/A; Upper gastrointestinal endoscopy Skin biopsy Hernia repair 07/03/2013 Procedure: LAPAROSCOPIC - HERNIA - INCISIONAL; Surgeon: Jevon Vargas DO; Location: [facility]; Service: General; Laterality: N/A; Skin lesion excision Left 05/05/2014 Procedure: EXCISION - LESION - FROZEN SECTION; Surgeon: Sy Fierro MD; Location: [facility]; Service: Plastics; Laterality: Left; forearm Prior to Admission medications Medication Sig Start Date End Date Taking? Authorizing Provider Albuterol Sulfate (VENTOLIN HFA IN) Inhale 2 puffs into the lungs as needed. 108 mcg/act Historical Provider Grdoo-D-Cghwqsawauscm (BEANO) TABS Take 150 Units by mouth [...] 100 mg by mouth nightly. Historical Provider ghmfoctnm-trhsjmgn-hrtldntfv hydroxide-simethicone Take 40 mLs by mouth daily [...] tablet Take 1 tablet by mouth daily. 07/25/14 CITLALY Leonard Allergies Allergen Reactions Vitamin B12 Rash History Social History Marital Status: Spouse Name: N/A Number of Children: 1 Years of Education: s. [employer] Occupational History disabled Social History Main Topics [...] sore throat CV/Resp: Negative for chest pain, fgnctqwgh-xn-quixxt, cough GI: Positive for abd pain "cramping" Negative for nausea, vomiting, hematochezia, or diarrhea : Negative for urinary problems Musculoskeletal: Negative for back pain, joint pain, or extremity pain Skin: Negative for rash Neuro/Psych: Positive for syncope and hitting his head Negative for neuro changes Endo/heme/Lymph: Negative for swollen lymph nodes, easy bruising All other systems reviewed and negative except as noted. Physical Exam BP 152/70 | Pulse 86 | Temp(Src) 97.6 F (36.4 C) (Oral) | Resp 18 | Wt 103.4 kg (227 lb 15.3 oz) | SpO2 98% Vital signs interpretation: Hypertensive, otherwise WNL Pulse Oximetry interpretation: Normal General: Alert, awake, and oriented Eyes: Normal inspection, pupils equal and round, non-icteric ENT: Atraumatic Ears normal Nose normal Pharynx normal Neck: Normal inspection, normal ROM with no apparent pain No lymphadenopathy Cardiovascular: Rate and rhythm normal No murmurs, no bruit or gallop Good distal pulses and good cap refill Chest: Non tender, good excursion Respiratory: Breath sounds normal bilaterally No respiratory distress No rales, wheezing or rhonchi No accessory muscle use Abdomen: Soft, non-tender at this time, non-distended Morbidly obese, bruising from injecting insulin Normal active bowel sounds No organomegaly No guarding or rebound Genitourinary: Deferred Rectal exam: Deferred Back: Normal inspection, good ROM, denies back pain Extremities: No edema, good ROM without pain Skin: Mild diffuse edema Warm and dry Neuro: Alert, no AMS Denies any neuro abnormalities No motor deficit No sensory deficit Medical Decision Making and Emergency Department Course ED Department Course Patient presents to ED with complaints of x1 syncope episode. On exam the patient has no re spiratory distress, no neuro abnormalities, denies any back pain, is morbidly obese, and has bruising from injecting insulin. My DDx includes, but is not limited to: CVA, arhythmia, AC S, syncope, micturition syncope, GI bleed, ICH, concussion or other. Will order Cardiac pane l, Troponin, EKG, head CT, and reevaluate the patient. Patient is stable at this time. 6:00 AM Patients labs have been reviewed. 6:01 AM Troponin: Negative 6:[address] has been reviewed: 1. No acute intracranial abnormality. 7:35 AM Patient recheck. I have discussed my clinical impression and treatment plan with e pt. We have specifically discussed the signs and symptoms that would constitute the need f or an immediate return to the ED, the importance of continued outpatient f/u and the importa nce of compliance with the d/c instructions. I have answered any questions that the pt has t o the best of my ability. Based upon the pt s history, physical exam, ED course, and diagn ostic studies, I feel that there is no current emergent medical condition that warrants admi ssion, transfer, or further ED treatment at this time. Medical Decision Making: No indication of ICH. He appears o/w stable and in no distess. He relates that the syncope is not new and circumstances are not unusual. He feels o/w stable and at his baseline. I will discharge him home to continue his normal activities and regime n of medication. Filed Vitals: 07/29/14 0350 07/29/14 0420 07/29/14 0450 07/29/14 0540 BP: 158/70 154/72 152/70 148/76 Pulse: 90 88 86 74 Temp: 97.6 F (36.4 C) 97.6 F (36.4 C) TempSrc: Oral Oral Resp: 18 18 18 18 Weight: SpO2: 98% 98% 98% 97% Records Reviewed Old medical records. Nursing notes. Previous ED visits for similar and unrelated complaints. Laboratory Evaluation Results Procedure Component Value Ref Range Date/Time Cardiac Panel [[id number]] (Abnormal) Collected: 07/29/14 0501 Order Status: Completed Updated: 07/29/14533 WBC 11.22 (H) 3.80 - 11.00 K/uL RBC 4.67 4.20 - 5.70 M/uL HGB 11.9 (L) 13.2 - 17.0 g/dL HCT 36.2 (L) 39.0 - 50.0 % MCV 77.6 (L) 80.0 - 100.0 fl MCH 25.4 (L) 27.0 - 34.0 pg MCHC 32.7 32.0 - 35.5 g/dL RDW SD 47.3 37 - 53 fl PLT 308 150 - 400 K/uL MPV 7.5 fl DIFF TYPE AUTOMATED NEUTROPHILS 65.34 % LYMPHOCYTES 22.89 % MONOCYTES 8.53 % EOSINOPHILS 2.46 % BASOPHILS 0.78 % NEUTROPHILS ABS 7.33 1.90 - 7.40 K/uL LYMPHOCYTES ABS 2.57 1.00 - 3.90 K/uL MONOCYTES ABS 0.96 (H) 0.00 - 0.80 K/uL EOSINOPHILS ABS 0.28 0.00 - 0.50 K/uL BASOPHILS ABS 0.09 0.00 - 0.10 K/uL SODIUM 142 135 - 143 mmol/L POTASSIUM 3.7 3.5 - 4.9 mmol/L CHLORIDE 108 99 - 109 mmol/L CO2 26 23 - 32 mmol/L ANION GAP AGAP 12 5 - 20 mmol/L GLUCOSE 179 (H) 65 - 99 mg/dL BUN 21 8 - 25 mg/dL CREATININE 0.95 0.70 - 1.30 mg/dL BUN/CREAT 23 CALCIUM 8.2 (L) 8.5 - 10.5 mg/dL TOTAL PROTEIN 6.5 6.3 - 8.2 g/dL Albumin 3.0 (L) 3.6 - 5.0 g/dL GLOBULIN 3.5 1.3 - 4.9 g/dL A/G 0.9 (L) 1.0 - 2.4 TBIL 0.2 0.1 - 1.5 mg/dL ALK PHOS 80 35 - 115 U/L AST 15 10 - 45 U/L ALT 19 10 - 65 U/L EGFR >60 >60 mL/min/1.73m2 CPK 97 55 - 400 U/L INR 2.5 APTT 33 (H) 23 - 32 seconds MMB 2.5 0.5 - 3.6 ng/mL CK-MB Index 2.6 POC cardiac troponin [[id number]] Collected: 07/29/14 0507 Order Status: Completed Updated: 07/29/14 0522 POC CARDIAC TROPONIN 0.01 0.00 - 0.10 ng/mL I personally reviewed the lab results and they have been posted to the chart. Pertinent po sitive and negative findings have been addressed appropriately. Radiology and EKG Evaluation Imaging Results CT Head Non-Contrast (Final result) Result time: 07/29/14 06:44:10 Preliminary result by Rad Results In Richard (07/29/14 06:44:10) Impression: 1. No acute intracranial abnormality. [facility] Read by Hermes Lopez MD on Jul 29 2014 6:44AM Final result by Rad Results In Richard (07/29/14 06:44:06) Impression: 1. No acute intracranial abnormality. [facility] Electronically signed by Hermes Lopez MD on Jul 29 2014 6:44AM Referring Provider Line: [phone] ID: [id number] Narrative: EXAM: CT HEAD EXAM DATE: 07/29/2014 06:14 AM. CLINICAL HISTORY: Pain after injury. On Coumadin. COMPARISON: 07/24/2014. TECHNIQUE: Multiaxial CT images were obtained from the foramen magnum to the vertex. IV con trast: None. Reformats: None. FINDINGS: Parenchyma: Mild small vessel disease. No intraparenchymal hemorrhage. No evidence of mass, midline shift or CT findings of infarction. Morrissey-white differentiation is distinct. Extraaxial Spaces: Normal for age. No subdural or epidural collections identified. Ventricles: Normal in size and position. Sinuses: Imaged paranasal sinuses, orbits, and mastoids show no significant abnormality. Bones: No evidence of fracture or calvarial defect. Other: None. EKG 0348 Nl sinus 78 Intervals nl [place] nl ST nl T waves diffuse flattening in the bipolar leads No ischemia No obvious signs of [place] July 24, 2014 no significant changes at this point in time ED Diagnoses Final diagnoses Micturition syncope Fall, initial encounter Scalp contusion, initial encounter Disposition: ED Disposition Discharge Condition at discharge: Stable Follow-up Information Follow up With Details Comments Contact Info Jerrell Ginny Jean-Claudesidney, DO As needed [address] [place] [address] [facility] [address] [facility] Emergency Department If symptoms worsen [address] [facility] [address] Discharge Medications: Discharge Medication List as of 07/29/2014 7:31 AM Procedures Additional Documentation Procedures Attending Note: Documentation assistance provided by Esperanza Boateng (Scribe). Information recorded by the scribe has been reviewed and validated by me. Troy laughlin with its contents. MD Kristian Silverman MD 08/02/14 1242 onversion Merchant saction, Provider Unknown - 07/29/2014 3:21 AM PDTFormatting of this note might be differen t from the original. ED Notes by Mayra Xie RN at 07/29/14320 Author: Mayra Xie RN Service: (none) Author Type: Registered Nurse Filed: 07/29/14320 Date of Service: 07/29/14320 Status: Signed Tire Changer Aircraft: Mayra Xie RN (Registered Nurse) Bed: 17 Expected date: Expected time: Means of arrival: Comments: 1723 docume nted in this encounter Plan of Treatment +--------+---------+ + + + | Date | Type | Specialty | Care Team | Description | +--------+---------+ + + + | 09/10/ | Office | Geriatric Medicine | Mireya Pack, | | | 2019 | Visit | | VETERINARY X RAY OPERATOR [address] | | | | | | [address] [place], | | | | | | [place] [address] | | | | | | [phone] | | | | | | | | +--------+---------+ + + + | 09/29/ | Office | Urology | Mireya Pack, | | | 2019 | Visit | | VETERINARY X RAY OPERATOR [address] | | | | | | [address] [place], | | | | | | [place] [address] | | | | | | [phone] | | | | | | | | | | | | Toy Wild, DO | | | | | | [address] | | | | | | [place] [address] | | | | | | [phone] | | | | | | | | +--------+---------+ + + + documented as of this encounter Procedures + +--------+ + + + | Procedure Name | Priori | Date/Time | Associated Diagnosis | Comments | | | ty | | | | + +--------+ + + + | CT HEAD WO CONTRAST | Routin | 07/29/2014 | | Results for this | | | e | 6:13 AM | | procedure are in the | | | | PDT | | results section. | + +--------+ + + + | HISTORICAL LAB PANEL | Routin | 07/29/2014 | | Results for this | | RESULT | e | 5:04 AM | | procedure are in the | | | | PDT | | results section. | + +--------+ + + + | ECG 12 LEAD | Routin | 07/29/2014 | | Results for this | | | e | 3:48 AM | | procedure are in the | | | | PDT | | results section. | + +--------+ + + + documented in this encounter Results CT Head wo Contrast (07/29/2014 6:13 AM PDT) + + | Specimen | + + | | + + + + + | Impressions | Performed At | + + + | 1. No acute intracranial abnormality. [facility] | | | Electronically signed by Hermes Lopez MD on Jul 29 2014 6:44AM | | | Referring Provider Line: [phone] ID: [id number] | | + + + + + + | Narrative | Performed At | + + + | EXAM: CT HEAD EXAM DATE: 07/29/2014 06:14 AM. CLINICAL | | | HISTORY: Pain after injury. On Coumadin. COMPARISON: 07/24/2014. | | | TECHNIQUE: Multiaxial CT images were obtained from the foramen | | | magnum to the vertex. IV contrast: None. Reformats: None. | | | FINDINGS: Parenchyma: Mild small vessel disease. No intraparenchymal | | | hemorrhage. No [...] calvarial defect. | | | Other: None. | | + + + + + | Procedure Note | + + | Richard, Rad Conversion - 09/20/2018 10:29 PM PDT EXAM:CT HEAD EXAM DATE: 07/29/2014 06:14 | | AM. CLINICAL HISTORY: Pain after injury. On Coumadin. COMPARISON: 07/24/2014. | | TECHNIQUE: Multiaxial CT images were obtained from the foramen magnum to the vertex. IV | | contrast: None. Reformats: None. FINDINGS:Parenchyma: Mild small vessel disease. No | | intraparenchymal hemorrhage. No evidence of mass, midline shift or CT findings of | | infarction. Morrissey-white differentiation is distinct. Extraaxial Spaces: Normal for age. | | No subdural or epidural collections identified. Ventricles: Normal in size and position. | | Sinuses: Imaged paranasal sinuses, orbits, and mastoids show no significant | | abnormality. Bones: No evidence of fracture or calvarial defect. Other: None. | | IMPRESSION: 1. No acute intracranial abnormality. RADIA Electronically signed by Hermes | | MD Jessica on Jul 29 2014 6:44AM Referring Provider Line: [phone] ID: [id number] | |FINDINGS: | |Parenchyma: Mild small vessel disease. No intraparenchymal hemorrhage. No evidence of mass, [...] Electronically signed by Hermes Lopez MD on Jul 29 2014 6:44AM Referring Provider Line: [phone] ID: [id number] | + + HISTORICAL LAB PANEL RESULT (07/29/2014 5:04 AM PDT) + + + + + -+ | Component | Value | Ref Range | Performed | Pathologist | | | | | At | Signature | + + + + + -+ | WBC | 11.22 (H)Comment: | 3.80 - 11.00 | EXTERNAL | | | | Testing performed at | K/uL | LAB | | | | [facility];[address];[place] [address] | | | | + + + + + -+ | Non- | 4.67Comment: Testing | 4.20 - 5.70 | EXTERNAL | | | Red Blood | performed at [facility];[address] | M/uL | LAB | | | Cells | [address];[place] | | | | | Counted | [id number] | | | | + + + + + -+ | Hemoglobin | 11.9 (L)Comment: Testing | 13.2 - 17.0 | EXTERNAL | | | | performed at [facility];[address] | g/dL | LAB | | | | [address];[place] | | | | | | [address] | | | | + + + + + -+ | Hematocrit, | 36.2 (L)Comment: Testing | 39.0 - 50.0 % | EXTERNAL | | | POC | performed at [facility];[address] | | LAB | | | [address];[place] | | | | | | [address] | | | | + + + + + -+ | MCV | 77.6 (L)Comment: Testing | 80.0 - 100.0 fl | EXTERNAL | | | | performed at [facility];[address] | | LAB | | | [address];[place] | | | | | | [address] | | | | + + + + + -+ | MCH | 25.4 (L)Comment: Testing | 27.0 - 34.0 pg | EXTERNAL | | | | performed at [facility];[address] | | LAB | | | [address];[place] | | | | | | [address] | | | | + + + + + -+ | MCHC | 32.7Comment: Testing | 32.0 - 35.5 | EXTERNAL | | | | performed at [facility];[address] | g/dL | LAB | | [...] [place] | | | | | | [address] | | | | + + + + + -+ | Platelet | 308Comment: Testing | 150 - 400 K/uL | EXTERNAL | | | Count | performed at [facility];[address] | | LAB | | | Plasma | [address];[place] | | | | | | [address] | | | | + + + + + -+ | MPV | 7.5Comment: Testing | fl | EXTERNAL | | | | performed at [facility];[address] | | LAB | | | [address];[place] | | | | | | [address] | | | | + + + + + -+ | Differentia | AUTOMATEDComment: | | EXTERNAL | | | l Type | Testing performed at | | LAB | | | | [facility];[address];[place] [address] | | | | + + + + + -+ | % Segmented | 65.34Comment: Testing | % | EXTERNAL | | | | performed at [facility];[address] | | LAB | | | Neutrophils | [address];[place] | | | | | | [address] | | | | + + + + + -+ | % | 22.89Comment: Testing | % | EXTERNAL | | | Lymphocytes | performed at [facility];[address] | | LAB | | | [address];[place] | | | | | | [address] | | | | + + + + + -+ | % Monocytes | 8.53Comment: Testing | % | EXTERNAL | | | | performed at [facility];[address] | | LAB | | | [address];[place] | | | | | | [address] | | | | + + + + + -+ | % | 2.46Comment: Testing | % | EXTERNAL | | | Eosinophils | performed at [facility];[address] | | LAB | | | [address];[place] | | | | | | [address] | | | | + + + + + -+ | % Basophils | 0.78Comment: Testing | % | EXTERNAL | | | | performed at [facility];[address] | | LAB | | | [address];[place] | | | | | | [address] | | | | + + + + + -+ | Absolute | 7.33Comment: Testing | 1.90 - 7.40 | EXTERNAL | | | Segmented | performed at [facility];[address] | K/uL | LAB | | | Neutrophils | [address];[place] | | | | | | [address] | | | | + + + + + -+ | Absolute | 2.57Comment: Testing | 1.00 - 3.90 | EXTERNAL | | | Lymphocytes | performed at [facility];[address] | K/uL | LAB | | | | [address];[place] | | | | | | [address] | | | | + + + + + -+ | Absolute | 0.96 (H)Comment: Testing | 0.00 - 0.80 | EXTERNAL | | | Monocytes | performed at [facility];[address] | K/uL | LAB | | | | [address];[place] | | | | | | [address] | | | | + + + + + -+ | Absolute | 0.28Comment: Testing | 0.00 - 0.50 | EXTERNAL | | | Eosinophils | performed at [facility];[address] | K/uL | LAB | | | | [address];[place] | | | | | | [address] | | | | + + + + + -+ | Absolute | 0.09Comment: Testing | 0.00 - 0.10 | EXTERNAL | | | Basophils | performed at [facility];[address] | K/uL | LAB | | | | [address];[place] | | | | | | [address] | | | | + + + + + -+ | Na | 142Comment: Testing | 135 - 143 | EXTERNAL | | | | performed at [facility];[address] | mmol/L | LAB | | | | [address];[place] | | | | | | [address] | | | | + + + + + -+ | K | 3.7Comment: Testing | 3.5 - 4.9 | EXTERNAL | | | | performed at [facility];[address] | mmol/L | LAB | | | | [address];[place] | | | | | | [address] | | | | + + + + + -+ | Cl | 108Comment: Testing | 99 - 109 mmol/L | EXTERNAL | | | | performed at [facility];[address] | | LAB | | | [address];[place] | | | | | | [address] | | | | + + + + + -+ | CO2 | 26Comment: Testing | 23 - 32 mmol/L | EXTERNAL | | | | performed at [facility];[address] | | LAB | | | | [address];[place] | | | | | | [address] | | | | + + + + + -+ | Anion Gap | 12Comment: Testing | 5 - 20 mmol/L | EXTERNAL | | | | performed at [facility];[address] | | LAB | | | | [address];[place] | | | | | | [address] | | | | + + + + + -+ | Glucose, | 179 (H)Comment: Testing | 65 - 99 mg/dL | EXTERNAL | | | Fasting | performed at [facility];[address] | | LAB | | | | [address];[place] | | | | | | [address] | | | | + + + + + -+ | BUN | 21Comment: Testing | 8 - 25 mg/dL | EXTERNAL | | | | performed at [facility];[address] | | LAB | | | | [address];[place] | | | | | | [address] | | | | + + + + + -+ | Creatinine | 0.95Comment: Testing | 0.70 - 1.30 | EXTERNAL | | | | performed at [facility];[address] | mg/dL | LAB | | | | [address];[place] | | | | | | [address] | | | | + + + + + -+ | BUN/Creatin | 23Comment: Testing | | EXTERNAL | | | ine Ratio | performed at [facility];[address] | | LAB | | | | [address];[place] | | | | | | [address] | | | | + + + + + -+ | Calcium | 8.2 (L)Comment: Testing | 8.5 - 10.5 | EXTERNAL | | | | performed at [facility];[address] | mg/dL | LAB | | | | [address];[place] | | | | | | [address] | | | | + + + + + -+ | Protein, | 6.5Comment: Testing | 6.3 - 8.2 g/dL | EXTERNAL | | | Total | performed at [facility];[address] | | LAB | | | | [address];[place] | | | | | | [address] | | | | + + + + + -+ | Albumin | 3.0 (L)Comment: Testing | 3.6 - 5.0 g/dL | EXTERNAL | | | | performed at [facility];[address] | | LAB | | | | [address];[place] | | | | | | [address] | | | | + + + + + -+ | Globulin | 3.5Comment: Testing | 1.3 - 4.9 g/dL | EXTERNAL | | | | performed at [facility];[address] | | LAB | | | | [address];[place] | | | | | | [address] | | | | + + + + + -+ | A/G Ratio | 0.9 (L)Comment: Testing | 1.0 - 2.4 | EXTERNAL | | | | performed at [facility] [place];[address] | | LAB | | | | [address];[place] | | | | | | [address] | | | | + + + + + -+ | Bilirubin | 0.2Comment: Testing | 0.1 - 1.5 mg/dL | EXTERNAL | | | Total | performed at [facility] [place] [facility];[address] | | LAB | | | | [address];[place] | | | | | | [address] | | | | + + + + + -+ | ALP, | 80Comment: Testing | 35 - 115 U/L | EXTERNAL | | | External | performed at [facility] [place];[address] | | LAB | | | | [address];[place] | | | | | | [address] | | | | + + + + + -+ | AST | 15Comment: Testing | 10 - 45 U/L | EXTERNAL | | | | performed at [facility] [place];[address] | | LAB | | | | [address];[place] | | | | | | [address] | | | | + + + + + -+ | ALT | 19Comment: Testing | 10 - 65 U/L | EXTERNAL | | | | performed at [facility] [place];[address] | | LAB | | | | [address];[place] | | | | | | [address] | | | | + + + [...] [address] | | | | [address];[place] [address] | | | | + + + + + -+ | CK, Total | 97Comment: Testing | 55 - 400 U/L | EXTERNAL | | | | performed at [facility] [place];[address] | | LAB | | | | [address];[place] | | | | | | [address] | | | | + + + + + -+ | INR | 2.5Comment: REFERENCE | | EXTERNAL | | | [...] [place] | | | | | | [address] | | | | + + + + + -+ | aPTT, | 33 (H)Comment: Testing | 23 - 32 seconds | EXTERNAL | | | Patient | performed at [facility] [place];[address] | | LAB | | | | [address];[place] | | | | | | [address] | | | | + + + + + -+ | CK-MB | 2.5Comment: Testing | 0.5 - 3.6 ng/mL | EXTERNAL | | | | performed at [facility] [place];[address] | | LAB | | | | [address];[place], [place] | | | | | | [address] | | | | + + + [...] + +---------+ + + ECG 12 lead (07/29/2014 3:48 AM PDT) + + + + + [...] of | | | | | | 24-JUL-2014 00:53,No | | | | | | significant [...] (500), | | | | | | image editor ZAYNAB HUNT | | | | | | (4) on 07/29/2014 1:35:51 | | | | | | PM | | | | + + + + + + + + | Specimen | + + | | + + + + + | Narrative | Performed At | + + + | Historically converted procedure from [facility] Epic environment | EXTERNAL LAB | + + + + +---------+ + + | Performing | Address | City/State/Zipcode | Phone Number | | Organization | | | | + +---------+ + + | EXTERNAL LAB | | | | + +---------+ + + documented in this encounter Visit Diagnoses + + | Diagnosis | + + | Micturition syncope Syncope and collapse | + + | Fall, initial encounter | + + | Scalp contusion, initial encounter | + + documented in this encounter
--- OUTSIDE RECORDS SUMMARY | ~2019-09-09 | XMS | Encounter Summary ---
Demographics + + + | Address | [address] | | | [place] [address] | + + + | Home Phone [...] Sammi Kohler | ECON | [place] [address] | | + + + + + Care Team Providers + +------+ + | Care Criminal Profiler Name | Role | Phone | + [...] | | | | [address] | [facility] | | | | | [place] | [place] [address] | | | | | [address] | [phone] | | | | | [phone] | | | +--------+ + + + [...] | | 2019 | Visit | | MARKET RISK SPECIALIST [address] | | | | | | [address] [place] | | | | | | [place] [address] | | | | | | [phone] | | | | | | | | +--------+---------+ + + + | 09/29/ | Office | Urology | Mireya Pack, | | | 2019 | Visit | | MARKET RISK SPECIALIST [address] | | | | | | [address] [place] | | | | | | [place] [address] | | | | | | [phone] | | | | | | | | | | | | Toy Wild DO | | | | | | [address] | | | | | | [place] [address] | | | | | | [phone] | | | | | | | [...]
--- OUTSIDE RECORDS SUMMARY | ~2019-09-09 | XMS | Encounter Summary ---
Demographics + + + | Address | [address] | | | [place] [address] | + + + | Home Phone [...] + | Sammi Kohler | ECON | [place] [address] | | + + + + + Care Team Providers + +------+ + | Care Veterinarian Small Animal Name | Role | Phone | + +------+ + PCP | Unavailable | + +------+ + Encounter Details +--------+ + + + + | Date | Type | Department | Care Team | Description | +--------+ + + + + | 12/12/ | Emergency | [facility] | Wolfert, Yaakov, DO | HTN (hypertension); | | 2012 | | MEDICAL CENTER | [address] | GERD | | | | EMERGENCY CENTER | [address] [place], | (gastroesophageal | | | | [address] | [place] [address] | reflux disease); | | | | [place], [place] | [phone] | Diabetes mellitus | | | | [address] | | type II | | | | [phone] | | | +--------+ + + + [...] 12/13/111329 Date of Service: 12/13/111329 Status: Signed Middle School Director: Matilda Lynne RN (Registered Nurse) Patient has finished his lunch and reports he is ready to go home. Matilda Lynne RN 12/13/111329 onver ivana Transaction, Provider Unknown - 12/13/2011 1:11 PM PST ED Notes by Itzel Huggins RN at 12/13/11 131 Author: Itzel Huggins RN Service: (none) Author Type: Registered Nurse Filed: 12/13/11 131 Date of Service: 12/13/111310 Status: Signed Middle School Director: Itzel Huggins RN (Registered Nurse) Report given to Matilda Huggins RN 12/13/111310 onver ivana Transaction, Provider Unknown - 12/13/2011 1:05 PM PST ED Notes by Matilda Lynne RN at 12/13/11 1305 Author: Matilda Lynne RN Service: (none) Author Type: Registered Nurse Filed: 12/13/11 1305 Date of Service: 12/13/11 130 Status: Signed Middle School Director: Matilda Lynne RN (Registered Nurse) Pt currently eating his lunch. Matilda Lynne RN 12/13/11 130 onver ivana Transaction, Provider Unknown - 12/13/2011 12:26 PM PST ED Notes by Itezl Huggins RN at 12/13/11 1226 Author: Itzel Huggins RN Service: (none) Author Type: Registered Nurse Filed: 12/13/11 1226 Date of Service: 12/13/11 1226 Status: Signed Middle School Director: Itzel Huggins RN (Registered Nurse) Pt back from xray ordering lunch then will discharge home Itzel Huggins RN 12/13/11 1226 onver ivana Transaction, Provider Unknown - 12/13/2011 11:50 AM PST ED Notes by Itzel Huggins RN at 12/13/11 1150 Author: Itzel Huggins RN Service: (none) Author Type: Registered Nurse Filed: 12/13/11 1151 Date of Service: 12/13/11 1150 Status: Signed Middle School Director: Itzel Huggins RN (Registered Nurse) Asa 324 given by ems DOT COMPLIANCE MANAGER to ED today Itzel Huggins RN 12/13/11 1151 aakov Antony DO - 12/13/2011 10:59 AM PSTFormatting of this note might be different from the or iginal. ED Provider Notes by Yaakov Bridges DO at 12/13/11 1059 Author: Yaakov Bridges DO Service: (none) Author Type: Physician Filed: 12/26/11 2346 Date of Service: 12/13/11 1059 Status: Signed Middle School Director: Yaakov Bridges DO (Physician) [facility] Department of Emergency Medicine 10:59 AM 12/13/2011 History of Present Illness Patient Identification Norah Gr is a 55 y.o. male. Patient information was obtained from patient. History/Exam limitations: none. Patient presented to the Emergency Department by: [facility] A411 JERRELL GUTIÉRREZ DO [...] Component Value Ref Range Date/Time Cardiac Panel [[id number]] (Abnormal) Collected:12/13/11 1118 Order Status:Completed Updated:12/13/11 1146 [...] ng/mL CK-MB Index 0.8 POC cardiac troponin [[id number]] Collected:12/13/11 1122 Order Status:Completed Updated:12/13/11 1142 POC CARDIAC TROPONIN 0.00 0.00 - 0.10 ng/mL D-dimer, quantitative [[id number]] Collected:12/13/11 1118 Order Status:Completed Updated:12/13/11 1139 Specimen [...] Time: 11:03 Rate: 51 Rhythm: Sinus bradycardia [place]: Normal RICHARD: Normal QRS: Normal ST waves: [...] Jerrell Gutiérrez DO Make an appointment [address] [facility] [phone] [facility] EMERGENCY DEPARTMENT If symptoms worsen [address] [facility] [address] Discharge Medications: New Prescriptions RANITIDINE (ZANTAC) 150 MG TABLET Take 1 tablet by mouth 2 (two) times daily. Additional Documentation Procedures Attending Note: Documentation assistance provided by Sammy John (Scribe). Information recorded by the scribe has been reviewed and validated by me. I aruna laughlin with its contents. DO Yaakov Emanuel DO 12/26/11 5915 onversion Dante sanchez, Provider Unknown - 12/13/2011 10:55 AM PST ED Notes by Saulo Gutiérrez at 12/13/112 Author: Saulo Gutiérrez Service: (none) Author Type: Network Support Analyst Filed: 12/13/115 Date of Service: 12/13/111054 Status: Signed Middle School Director: Saulo Gutiérrez (Network Support Analyst) Bed:12
Expected date:12/13/11
Expected time:10:49 AM
Means of arrival:
Comm ents:
EMS docume nted in this encounter Plan of Treatment +--------+---------+ + + + | Date | Type | Specialty | Care Team | Description | +--------+---------+ + + + | 09/10/ | Office | Geriatric Medicine | Mireya Pack, | | | 2019 | Visit | | LINE UP MACHINE OPERATOR [address] | | | | | | [address] [place], | | | | | | [place] [address] | | | | | | [phone] | | | | | | | | +--------+---------+ + + + | 09/29/ | Office | Urology | Mireya Pack, | | | 2019 | Visit | | LINE UP MACHINE OPERATOR [address] | | | | | | [address] [place], | | | | | | [place] [address] | | | | | | [phone] | | | | | | | | | | | | Toy Wild, DO | | | | | | [address] | | | | | | [place] [address] | | | | | | [phone] | | | | | | | [...] + | Joaquin Ramos Conversion - 09/29/2018 12:47 AM PDT NORAH Andrea SIMÓNXR CHEST 2 VIEW FRONTAL | | AND NBOESGG02/6/2012 12:09 PM HISTORY:55 years. Male. Chest pain. [...]
--- OUTSIDE RECORDS SUMMARY | ~2019-09-09 | XMS | Encounter Summary ---
Demographics + + + | Address | [address] | | | [place] [address] | + + + | Home Phone [...] + | Sammi Kohler | ECON | [place] [address] | | + + + + + Care Team Providers + +------+ + | Care Resident Doctor Name | Role | Phone | + +------+ + PCP | Unavailable | + +------+ + Encounter Details +--------+ + + + + | Date | Type | Department | Care Team | Description | +--------+ + + + + | 04/30/ | Hospital | [facility] | Conversion | | | 2015 | Encounter | CENTER [facility] | Transaction, | | | | | CLINIC [address] | Provider Unknown | | | | | [place] | [phone] | | | | | [address] | | | | | | [phone] | Sy Fierro MD | | | | | | [address] | | | | | | [place] | | | | | | [address] | | | | | | | [...] Anesthesiology Author Type: Registered Nurse Filed: 04/30/14 9589 Date of Service: 04/30/141419 Status: Signed Doughnut Batter Mixer: Ira Schaeffer RN (Registered Nurse) Pt lives at [facility] recently seen in ER for lower abd. Pain. Labs and EKG in [facility] d chart from that visit. Minor procedure is being done and pt is otherwise at baseline. IT i s unclear why the patient has prescription for nitro as he does not see a veterinary livestock inspector and h as no record of CAD. EKG today shows NSR although pt does have history of a fib. Pt facility given pre op fasting guidelines, as well as medication instructions. States understanding. Also pre op fasting guidelines as well as medication instructions sent with Dry Room Attendant to give t o facility. Genaro wilson in this encounter Plan of Treatment +--------+---------+ + + + | Date | Type | Specialty | Care Team | Description | +--------+---------+ + + + | 09/10/ | Office | Geriatric Medicine | Mireya Pack, | | 2019 | Visit | | SOLAR DESIGNER [address] | | | | | | [address] [place], | | | | | | [place] [address] | | | | | | [phone] | | | | | | | | +--------+---------+ + + + | 09/29/ | Office | Urology | Mireya Pack, | | 2019 | Visit | | SOLAR DESIGNER [address] | | | | | | [address] [place], | | | | | | [place] [address] | | | | | | [phone] | | | | | | | | | | | | Toy Wild W, DO | | | | | | [address] | | | | | | [place] [address] | | | | | | [phone] | | | | | | | [...] EXTERNAL LAB | | Testing performed at [facility];[address] [place] [address];[place] [address] MRSA PCR | | | NEGATIVE Testing performed at | | | [address];[place] [address] | | + + + + +---------+ + + | Performing | Address | City/State/Zipcode | Phone Number | | Organization | | | | + +---------+ + + | EXTERNAL LAB | | | | + +---------+ + + documented in this encounter Visit Diagnoses Not on filedocumented in this encounter"
--- OUTSIDE RECORDS SUMMARY | ~2019-09-09 | XMS | Encounter Summary ---
Demographics + + + | Address | [address] | | | [place] [address] | + + + | Home Phone [...] + | Sammi Kohler | ECON | [place] [address] | | + + + + + Care Team Providers + +------+ + | Care Academic Affairs Assistant Name | Role | Phone | + +------+ + PCP | Unavailable | + +------+ + Encounter Details +--------+ + + + + | Date | Type | Department | Care Team | Description | +--------+ + + + + | 11/29/ | Emergency | [facility] | Jose Flor, | Chest pain; | | 2013 | | [facility] | MD [address] | Hyperglycemia | | | | EMERGENCY CENTER | [place] [address] | | | | | [address] | [phone] | | | | | [place], [place] | | | | | | [address] | | | | | | [phone] | | | +--------+ + + + [...] Case Management by QUINN Richardson at 11/29/13 1754 Author: QUINN Richardson Service: (none) Author Type: Blowing Weasand Filed: 11/29/13 4120 Date of Service: 11/29/131225 Status: Signed Entry Manager: QUINN Richardson (Blowing Weasand) ED CARE GUIDELINES FROM [facility] PROGRAM: E.D. VISIT COUNT (1 YR.) IS 34 Care Recommendation: Norah has a printed Crisis Plan at the Assisted Living Facility that he is to follow before coming to the ED for non life-threatening issues. Please discuss with Norah when he present s to the ED The following guidelines were formulated by the ED Care Guidelines Committee of the [facility] Care Program on May 21, 2013. No controlled substances should be administered in the ED or prescribed from the ED for sub jective pain. Past Medical & Surgical History: Primary Care Provider (PCP) is Dr. Gutiérrez at . Notify PCP if giving any a dditional narcotics for objective findings. PCP supports enrollment in the [facility] nt Care Program. Medical History: 1. Diabetes-He is on a sliding scale after meals, routine insulin before meals and takes La ntus at night. A1C April, = 7.9%. He was referred to an flaker operator in February, 4. 2. COPD- He take [...] the GE junction (requiring managem ent in [place] at ), rectal ulcer and internal hemorrhoids. 9. Hernia- He has been referred to Dr. Vargas. Problem List: He needs to make regular visits to see his PCP in light of his chronic conditions. He estab lished in February, but he never returned as requested. This patient is developmentally delayed and has multiple chronic conditions and providers. He would benefit from having a Project Development Engineer assist him in coordinating his care. History of Behavioral Health Conditions: He has depression and anxiety- This is managed by his PCP. He takes Paxil and abilify. He has been referred to [facility] in February. According to [facility], he never establish ed care. Please follow-up with him and assist him in making another appointment to establish care. Pain/Opioid Agreement: Norah has an order at the Assisted Living Facility for hydrocodone as needed. He does not h ave a diagnosis of chronic pain. Please see OXYACETYLENE WELDER for prescribing history. Social History or Identified Risk: - Fall Risk - Non adherence - Transportation Issues Social History: Norah lives at [facility] . He may require another level of care given the number of ED visits at enrollment (22 in the last year)-please contact his [facility] Ca se Bicycle Fitter (Fermin Preston) to discuss. Norah is developmentally delayed- Patient may benefit from having someone with him at his d lylaor's appointments. He has applied for Dial-A-Ride services (April,) Applied for a Health Home for this client through [facility]- please review Provider One to determ ine if one has been assigned. Additional Information: This patient is case managed by the [facility]. Please contact the relocation director at your hospital for any immediate or [...] different from the original. ED Notes by Leslei Verdin RN at 11/29/13 6462 Author: Leslie Verdin RN Service: (none) Author Type: Registered Nurse Filed: 11/29/13 1300 Date of Service: 11/29/13 5979 Status: Signed Entry Manager: Leslie Verdin RN (Registered Nurse) Called Daljit Ex mother in law to come curing pickling packer pt in lobby, verbalized understanding. Leslie Verdin RN 11/29/13 1300 Jose Rios MD - 11/29/2013 11:55 AM PDTFormatting of this note might be different from the o riginal. ED Provider Notes by Jose Flor MD at 11/29/13 9209 Author: Jose Flor MD Service: (none) Author Type: Physician Filed: 11/29/13 2778 Date of Service: 11/29/13 7525 Status: Signed Entry Manager: Jose Flor MD (Physician) [facility] Department of Emergency Medicine History of Present Illness Patient Identification Norah Gr is a 57 y.o. male. Patient information was obtained from patient and EMS personnel. History/Exam limitations: none. Patient presented to the Emergency Department by: [facility] 1721 Chief Complaint Chief Complaint Patient presents [...] Fierro MD; Location: [facility] MAIN OR ; Service: Plastics; Laterality: Left; upper arm and upper back w/frozen section Esophagogastroduodenoscopy 03/03/2013 Procedure: ESOPHAGOGASTRODUODENOSCOPY; Surgeon: Howie Gibson MD; Location: [facility] ENDOSCOPY; S ervice: Gastroenterology; Laterality: N/A; Colonoscopy 03/04/2013 Procedure: COLONOSCOPY; Surgeon: Howie Gibson MD; Location: [facility] ENDOSCOPY; Service: Gastroe nterology; Laterality: N/A; Upper gastrointestinal endoscopy Skin biopsy Hernia repair 07/03/2013 Procedure: LAPAROSCOPIC - HERNIA - INCISIONAL; Surgeon: Jevon Vargas DO; [facility] into the skin nightly. H istorical Provider wamausqim-uvpzmfpt-jfmotxnjl hydroxide-simethicone Take 40 mLs by mouth daily [...] troponin. Patient will be placed on the shelter monitor to ensure no life thre atening arrhythmia develops and will be given supplemental oxygen via nasal cannula. ED Department Course I discussed with the patient the results of his tests in the emergency department and we kelley ve discussed possible treatment options. The workup at this time does not suggest acute LA, Acute Coronary Syndrome, Aortic dissection, or other [...] diagnosis of chest pain, including risks of LA, , or disability. The patient is deemed to be low risk at this time, and agrees to return if pains worsen or if an y further concerning symptoms arise. Records Reviewed Old medical records. Laboratory Evaluation Labs Reviewed [facility] CARD PANEL W/O TRP (ED ONLY) - Abnormal; Notable for the following: MCH 26.4 (*) MONOCYTES ABS 0.9 (*) GLUCOSE 284 (*) A/G 0.9 (*) MMB 4.7 (*) All other components within normal limits POC CARDIAC TROPONIN Results Procedure Component Value Units Date/Time Cardiac Panel [[id number]] (Abnormal) Collected: 11/29/13 1155 WBC 10.2 K/uL [...] EKG Interpretation Rhythm: Sinus Ventricular Rate: 86 RI Interval: Normal ST Segments: Normal Significant Q-waves: None Blocks: None ED Diagnoses Final diagnoses Chest pain Hyperglycemia Disposition: ED Disposition Discharge Condition at discharge: Stable Follow-up Information Follow up With Details Comments Contact Info Jerrell Gutiérrez, DO [address] [facility] [address] [address] Discharge Medications: Discharge Medication List as of 11/29/2013 12:55 PM Procedures Additional Documentation Procedures Jose Flor MD 11/29/13 2949 onversion Transacti on, Provider Unknown - 11/29/2013 11:52 AM PDTFormatting of this note might be different fro m the original. ED Notes by Michelle Palomares RN at 11/29/131151 Author: Michelle Palomares RN Service: (none) Author Type: Registered Nurse Filed: 11/29/131152 Date of Service: 11/29/131151 Status: Signed Entry Manager: Michelle Palomares RN (Registered Nurse) Pt placed on cardiac monitoring, tele notified Michelle Palomares RN 11/29/131152 onver ivana Transaction, Provider Unknown - 11/29/2013 11:47 AM PDT ED Notes by Mili Goode RN at 11/29/13 114 Author: Mili Goode RN Service: (none) Author Type: Registered Nurse Filed: 11/29/131146 Date of Service: 11/29/131146 Status: Signed Entry Manager: Mili Goode RN (Registered Nurse) Bed: 1106 Expected date: Expected time: Means of arrival: Comments: docume nted in this encounter Plan of Treatment +--------+---------+ + + + | Date | Type | Specialty | Care Team | Description | +--------+---------+ + + + | 09/10/ | Office | Geriatric Medicine | Mireya Pack, | | | 2019 | Visit | | [facility] [employer] [facility] [address] | | | | | | [address] [place], | | | | | | [place] [address] | | | | | | [phone] | | | | | | | | +--------+---------+ + + + | 09/29/ | Office | Urology | Mireya Pack, | | | 2019 | Visit | | [facility] [employer] [facility] [address] | | | | | | [address] [place], | | | | | | [place] [address] | | | | | | [phone] | | | | | | | | | | | | Toy Wild, DO | | | | | | [address] | | | | | | [place] [address] | | | | | | [phone] | | | | | | | [...] - 09/21/2018 3:31 PM PDT NORAH Andrea [id number] yearsXR CHEST | | 1 VIEW11/29/2013 12:12 [...] EXTERNAL | | | | performed at [facility];[address] | | LAB | | | | [address];[place] | | | | | | [address] | | | | + + + + + -+ | Non- | 5.30Comment: Testing | 4.20 - 5.70 | EXTERNAL | | | Red Blood | performed at [facility];[address] | M/uL | LAB | | | Cells | [address];[place] | | | | | Counted | [address] | | | | + + + + + -+ | Hemoglobin | 14.0Comment: Testing | 13.2 - 17.0 | EXTERNAL | | | | performed at [facility];[address] | g/dL | LAB | | | | [address];[place] | | | | | | [address] | | | | + + + + + -+ | Hematocrit, | 42.5Comment: Testing | 39.0 - 50.0 % | EXTERNAL | | | POC | performed at [facility];[address] | | LAB | | | | [address];[place] | | | | | | [address] | | | | + + + + + -+ | MCV | 80.1Comment: Testing | 80.0 - 100.0 fl | EXTERNAL | | | | performed at [facility];[address] | | LAB | | | | [address];[place] | | | | | | [address] | | | | + + + + + -+ | MCH | 26.4 (L)Comment: Testing | 27.0 - 34.0 pg | EXTERNAL | | | | performed at [facility];[address] | | LAB | | | | [address];[place] | | | | | | [address] | | | | + + + + + -+ | MCHC | 32.9Comment: Testing | 32.0 - 35.5 | EXTERNAL | | | | performed at [facility];[address] | g/dL | LAB | | | | [address];[place] | | | | | | [address] | | | | + + + + + -+ | RDW-CV | 41.1Comment: Testing | 37 - 53 fl | EXTERNAL | | | | performed at [facility];[address] | | LAB | | | | [address];[place] | | | | | | [address] | | | | + + + + + -+ | Platelet | 277Comment: Testing | 150 - 400 K/uL | EXTERNAL | | | Count | performed at [facility];[address] | | LAB | | | Plasma | [address];[place] | | | | | | [address] | | | | + + + + + -+ | MPV | 7.5Comment: Testing | fl | EXTERNAL | | | | performed at [facility];[address] | | LAB | | | | [address];[place] | | | | | | [address] | | | | + + + + + -+ | Differentia | AUTOMATEDComment: | | EXTERNAL | | | l Type | Testing performed at | | LAB | | | | [facility];[address];[place] [address] | | | | + + + + + -+ | % Segmented | 57.7Comment: Testing | % | EXTERNAL | | | | performed at [facility];[address] | | LAB | | | Neutrophils | [address];[place] | | | | | | [address] | | | | + + + + + -+ | % | 29.8Comment: Testing | % | EXTERNAL | | | Lymphocytes | performed at [facility];[address] | | LAB | | | | [address];[place] | | | | | | [address] | | | | + + + + + -+ | % Monocytes | 8.5Comment: Testing | % | EXTERNAL | | | | performed at [facility];[address] | | LAB | | | | [address];[place] | | | | | | [address] | | | | + + + + + -+ | % | 3.1Comment: Testing | % | EXTERNAL | | | Eosinophils | performed at [facility];[address] | | LAB | | | | [address];[place] | | | | | | [address] | | | | + + + + + -+ | % Basophils | 0.9Comment: Testing | % | EXTERNAL | | | | performed at [facility];[address] | | LAB | | | | [address];[place] | | | | | | [address] | | | | + + + + + -+ | Absolute | 5.9Comment: Testing | 1.9 - 7.4 K/uL | EXTERNAL | | | Segmented | performed at [facility];[address] | | LAB | | | Neutrophils | [address];[place] | | | | | | [address] | | | | + + + + + -+ | Absolute | 3.0Comment: Testing | 1.0 - 3.9 K/uL | EXTERNAL | | | Lymphocytes | performed at [facility];[address] | | LAB | | | | [address];[place] | | | | | | [address] | | | | + + + + + -+ | Absolute | 0.9 (H)Comment: Testing | 0 - 0.8 K/uL | EXTERNAL | | | Monocytes | performed at [facility];[address] | | LAB | | | | [address];[place] | | | | | | [address] | | | | + + + + + -+ | Absolute | 0.3Comment: Testing | 0 - 0.5 K/uL | EXTERNAL | | | Eosinophils | performed at [facility];[address] | | LAB | | | | [address];[place] | | | | | | [address] | | | | + + + + + -+ | Absolute | 0.1Comment: Testing | 0 - 0.1 K/uL | EXTERNAL | | | Basophils | performed at [facility];[address] | | LAB | | | | [address];[place] | | | | | | [address] | | | | + + + + + -+ | Na | 137Comment: Testing | 135 - 143 | EXTERNAL | | | | performed at [facility];[address] | mmol/L | LAB | | | | [address];[place] | | | | | | [address] | | | | + + + + + -+ | K | 3.6Comment: Testing | 3.5 - 4.9 | EXTERNAL | | | | performed at [facility];[address] | mmol/L | LAB | | | | [address];[place] | | | | | | [address] | | | | + + + + + -+ | Cl | 100Comment: Testing | 99 - 109 mmol/L | EXTERNAL | | | | performed at [facility];[address] | | LAB | | | | [address];[place] | | | | | | [address] | | | | + + + + + -+ | CO2 | 27Comment: Testing | 23 - 32 mmol/L | EXTERNAL | | | | performed at [facility];[address] | | LAB | | | | [address];[place] | | | | | | [address] | | | | + + + + + -+ | Anion Gap | 13Comment: Testing | 5 - 20 mmol/L | EXTERNAL | | | | performed at [facility];[address] | | LAB | | | | [address];[place] | | | | | | [address] | | | | + + + + + -+ | Glucose, | 284 (H)Comment: Testing | 65 - 99 mg/dL | EXTERNAL | | | Fasting | performed at [facility];[address] | | LAB | | | | [address];[place] | | | | | | [address] | | | | + + + + + -+ | BUN | 16Comment: Testing | 8 - 25 mg/dL | EXTERNAL | | | | performed at [facility];[address] | | LAB | | | | [address];[place] | | | | | | [address] | | | | + + + + + -+ | Creatinine | 1.22Comment: Testing | 0.70 - 1.30 | EXTERNAL | | | | performed at [facility];[address] | mg/dL | LAB | | | | [address];[place] | | | | | | [address] | | | | + + + + + -+ | BUN/Creatin | 13Comment: Testing | | EXTERNAL | | | ine Ratio | performed at [facility];[address] | | LAB | | | | [address];[place] | | | | | | [address] | | | | + + + + + -+ | Calcium | 8.9Comment: Testing | 8.5 - 10.2 | EXTERNAL | | | | performed at [facility];[address] | mg/dL | LAB | | | | [address];[place] | | | | | | [address] | | | | + + + + + -+ | Protein, | 7.5Comment: Testing | 6.3 - 8.2 g/dL | EXTERNAL | | | Total | performed at [facility];[address] | | LAB | | | | [address];[place] | | | | | | [address] | | | | + + + + + -+ | Albumin | 3.6Comment: Testing | 3.6 - 5.0 g/dL | EXTERNAL | | | | performed at [facility];[address] | | LAB | | | | [address];[place] | | | | | | [address] | | | | + + + + + -+ | Globulin | 4.0Comment: Testing | 1.3 - 4.9 g/dL | EXTERNAL | | | | performed at [facility];[address] | | LAB | | | | [address];[place] | | | | | | [address] | | | | + + + + + -+ | A/G Ratio | 0.9 (L)Comment: Testing | 1.0 - 2.4 | EXTERNAL | | | | performed at [facility];[address] | | LAB | | | | [address];[place] | | | | | | [address] | | | | + + + + + -+ | Bilirubin | 0.4Comment: Testing | 0.1 - 1.5 mg/dL | EXTERNAL | | | Total | performed at [facility];[address] | | LAB | | | | [address];[place] | | | | | | [address] | | | | + + + + + -+ | ALP, | 95Comment: Testing | 35 - 115 U/L | EXTERNAL | | | External | performed at [facility];[address] | | LAB | | | | [address] | | | | | | [address] | | | | + + + + + -+ | AST | 30Comment: Testing | 10 - 45 U/L | EXTERNAL | | | | performed at [facility];[address] | | LAB | | | | [address];[place] | | | | | | [address] | | | | + + + + + -+ | ALT | 28Comment: Testing | 10 - 65 U/L | EXTERNAL | | | | performed at [facility];[address] | | LAB | | | | [address];[place] | | | | | | [address] | | | | + + + [...] | | | | | | at [facility];[address];[place] [address] | | | | + + + + + -+ | CK, Total | 184Comment: Testing | 55 - 400 U/L | EXTERNAL | | | | performed at [facility];[address] | | LAB | | | | [address];[place] | | | | | | [address] | | | | + + + [...] | | | | | performed at [facility];[address] | | | | | | [address];[place] | | | | | | [address] | | | | + + + + + -+ | aPTT, | 24Comment: Testing | 23 - 32 seconds | EXTERNAL | | | Patient | performed at [facility];[address] | | LAB | | | | [address];[place] | | | | | | [address] | | | | + + + + + -+ | CK-MB | 4.7 (H)Comment: Testing | 0.5 - 3.6 ng/mL | EXTERNAL | | | | performed at [facility];[address] | | LAB | | | | [address];[place] | | | | | | [address] | | | | + + + [...] (210), | | | | | | photography editor SANYA DUPONT (8) | | | | | | on 11/29/2013 12:41:21 | | | | | | PM | | | | + + + + + + + + | Specimen | + + | | + + + + + | Narrative | Performed At | + + + | [facility] | EXTERNAL LAB | + + [...]
--- OUTSIDE RECORDS SUMMARY | ~2019-09-09 | XMS | Encounter Summary ---
Demographics + + + | Address | [address] [address] | | | [place] [address] | + + + | Home Phone [...] + | Sammi Kohler | ECON | [place] [address] | | + + + + + Care Team Providers + +------+ + | Care Environmental Coordinator Name | Role | Phone | [...] | | | | EMERGENCY CENTER | [place] [address] | pain; Type 2 | | | | [address] | [phone] | diabetes mellitus | | | | [place], [place] | | with hyperglycemia, | | | | [address] | | unspecified long | | | | [phone] | | term insulin use | | | | | | status ([facility]) | +--------+ + + + + Social [...] Author: Evette Mcgarry Service: (none) Author Type: Manager Hvac Filed: 02/01/161132 Date of Service: 12/26/16 1132 Status: Signed Sap Data Analyst: Evette Mcgarry (Manager Hvac) Changed patients gown and socks states he urinated on gown and floor Evette Mcgarry 02/01/16 1133 onver ivana Transaction, Provider Unknown - 02/01/2016 11:19 AM PST ED Notes by Samantha Olivo RN at 02/01/16 1119 Author: Samantha Olivo RN Service: (none) Author Type: Registered Nurse Filed: 02/01/16 1120 Date of Service: 02/01/16 1119 Status: Signed Sap Data Analyst: Samantha Olivo RN (Registered Nurse) Pt stating, "I'm ready for my shot" re: insulin shot. No insulin ordered at this time. Samantha Olivo RN 02/01/16 1120 onver ivana Transaction, Provider Unknown - 02/01/2016 11:00 AM PST ED Notes by Evette Mcgarry at 02/01/16 1100 Author: Evette Mcgarry Service: (none) Author Type: Manager Hvac Filed: 02/01/16 1100 Date of Service: 02/01/16 1100 Status: Signed Sap Data Analyst: Evette Mcgarry (Manager Hvac) Repeat EKG completed shown to Dr Lucero Mcgarry 02/01/16 1100 onver ivana Transaction, Provider Unknown - 02/01/2016 10:27 AM PST ED Notes by Samantha Olivo RN at 02/01/16 1027 Author: Samantha Olivo RN Service: (none) Author Type: Registered Nurse Filed: 02/01/16 1027 Date of Service: 02/01/16 1027 Status: Signed Sap Data Analyst: Samantha Olivo RN (Registered Nurse) Pt returned from CT Samantha Olivo RN 02/01/16 1027 onver ivana Transaction, Provider Unknown - 02/01/2016 10:19 AM PST ED Notes by Mica Morrissey RN at 02/01/16 1019 Author: Mica Morrissey RN Service: (none) Author Type: Registered Nurse Filed: 02/01/16 1020 Date of Service: 02/01/16 1019 Status: Signed Sap Data Analyst: Mica Morrissey RN (Registered Nurse) [facility] to assess. Mica Morrissey RN 02/01/16 1020 Norah Rivas MD - 02/01/2016 9:09 AM PSTFormatting of this note might be different from the or iginal. ED Provider Notes by Norah Barker MD at 02/01/16 0909 Author: Norah Barker MD Service: Emergency Department Author Type: Physician Filed: 02/01/16 1149 Date of Service: 02/01/16 0909 Status: Signed Sap Data Analyst: Norah Barker MD (Physician) [facility] Department of Emergency Medicine History of Present Illness Patient Identification Norah Gr is a 60 y.o. male. Patient information was obtained from patient. History/Exam limitations: none. Patient presented to the Emergency Department [place] [address] Room:06/10 Chief Complaint Chief Complaint Patient presents [...] he was a t [facility] in the last few weeks also [...] FROZEN SECTION; Surgeon: Sy Fierro MD; Location: [facility]; Service: Plastics; Laterality: Left; forearm Hernia repair N/A 07/03/2013 Procedure: LAPAROSCOPIC - HERNIA - INCISIONAL; Surgeon: Jevon Vargas DO; Location: [facility]; Service: General; Laterality: N/A; Colonoscopy N/A 03/04/2013 Procedure: COLONOSCOPY; Surgeon: Howie Gibson MD; Location: [facility]; Service: Gastroe nterology; Laterality: N/A; Esophagogastroduodenoscopy N/A 03/03/2013 Procedure: ESOPHAGOGASTRODUODENOSCOPY; Surgeon: Howie Gibson MD; Location: [facility]; S ervice: Gastroenterology; Laterality: N/A; Skin cancer excision Left 10/10/2012 Procedure: EXCISION - SKIN CANCER; Surgeon: Sy Fierro MD; Location: [facility] ; Service: Plastics; Laterality: Left; upper arm and upper back w/frozen section Cholecystectomy, laparoscopic N/A 09/12/2012 Procedure: LAPAROSCOPIC - CHOLECYSTECTOMY; Surgeon: Jevon Vargas DO; Location: [facility]; Service: General; Laterality: N/A; Prior to Admission medications Medication Sig Start Date End Date Taking? Authorizing Provider Albuterol Sulfate (VENTOLIN HFA IN) Inhale 2 puffs into the lungs as needed. 108 mcg/act Historical Provider Hnvru-Z-Hqozdhhigkkvr (BEANO) TABS Take 150 Units by mouth [...] 100 mg by mouth nightly. Historical Provider mdkwalsfq-egaqinhc-vdozcwmjo hydroxide-simethicone Take 40 mLs by mouth daily [...] reevaluate .. 9:29 AM Records obtained from [facility]. CT head was negative for acute intracranial [...] Date/Time Urinalysis (reflex to microscopic/reflex to culture) [[id number]] (Abnormal) Collected: 02/01/16928 Order Status: Completed Specimen Information: Urine, Clean Catch Updated: 02/01/16 10 11 COLOR UA YELLOW CLARITY CLEAR Specific [place], UA 1.010 1.002 - 1.030 LEUKOCYTE ESTERASE NEGATIVE NEGATIVE NITRITE NEGATIVE NEGATIVE UROBILINOGEN NORMAL <1.1 mg/dL PROTEIN NEGATIVE NEGATIVE mg/dL PH,URINE 5.0 5.0 - 8.0 BLOOD NEGATIVE NEGATIVE KETONES NEGATIVE NEGATIVE mg/dL BILIRUBIN NEGATIVE NEGATIVE GLUCOSE >500 (A) NEGATIVE mg/dL Cardiac Panel [[id number]] (Abnormal) Collected: 02/01/16 09 Order Status: Completed [...] ng/mL CK-MB Index 1.3 Troponin I, Lab [[id number]] Collected: 02/01/16909 Order Status: Completed Specimen Information: [...] The data set was also examined with Hybrid Paytecha 3D software for evaluation of t he [...] artery: Normal. Left posterior cerebral artery: Normal. [place]: Anterior communicating artery: Normal. Right [...] from 0945: Sinus bradycardia at 43 bpm. AR, QRS, QT, and axis are [...] from 1057: Sinus bradycardia at 44 bpm. AR, QRS, QT, and axis are normal. No ST segme nt elevations or depression. No significant Q waves. Good R wave progression through the pre cordial leads. Meets No STEMI criteria for ischemia. In comparison with an old ECG from [facility] there are no significant changes. This study has been independently viewed and inter preted by me. ED Diagnoses Final diagnoses Arm paresthesia, left Chronic chest pain Type 2 diabetes mellitus with hyperglycemia, unspecified manager intermediate insulin use status (HCC ) Disposition: ED Disposition Discharge Condition at discharge: Stable Follow-up Information Follow up With Details Comments Contact Info Jerrell Gutiérrez DO Schedule an appointment as soon as possible for a visit [address] [place] [address] [facility] [address] [facility] Emergency Department If symptoms worsen [address] [facility] [address] Discharge Medications: New Prescriptions No new medications This document has been prepared with a voice recognition system. The possibility of "sound alike" maid supervisor errors, addition and/or deletions may occur. If [...] 02/01/16907 Date of Service: 02/01/16907 Status: Signed Sap Data Analyst: Tatum Pratt RN (Registered Nurse) Bed: 05 Expected date: Expected time: Means of arrival: Comments: 1723 onver ivana Transaction, Provider Unknown - 02/01/2016 8:57 AM PST ED Notes by Tatum Pratt RN at 02/01/16856 Author: Tatum Pratt RN Service: (none) Author Type: Registered Nurse Filed: 02/01/16856 Date of Service: 02/01/16856 Status: Signed Sap Data Analyst: Tatum Pratt RN (Registered Nurse) H/a, 11/15, started one hour ago. Tatum Pratt RN 02/01/16856 docume nted in this encounter Plan of Treatment +--------+---------+ + + + | Date | Type | Specialty | Care Team | Description | +--------+---------+ + + + | 09/10/ | Office | Geriatric Medicine | Mireya Pack, | | | 2019 | Visit | | [employer] [address] | | | | | | [address] [place], | | | | | | [place] [address] | | | | | | [phone] | | | | | | | | +--------+---------+ + + + | 09/29/ | Office | Urology | Mireya Pack, | | | 2019 | Visit | | [facility] [employer] [address] | | | | | | [address] [place], | | | | | | [place] [address] | | | | | | [phone] | | | | | | | | | | | | Toy Wild, DO | | | | | | [address] | | | | | | [place] [address] | | | | | | [phone] | | | | | | | [...] | | | | | ONLY, -COMPUTER ([id number]), | | | | | | makeup editor Ashley Fan | | | | | | (79) on 02/01/2016 | | | | | | 6:48:59 PM | | | | + + + + + + + + | Specimen | + + | | + + + + + | Narrative | Performed At | + + + | Historically converted procedure from [facility] environment | EXTERNAL LAB | [...] was also examined | | | with Tutor Universe 3D software for evaluation of the cerebral [...] posterior cerebral artery: Normal. | | | [place]: Anterior communicating artery: Normal. Right [...] TREVIÑO HEAD NECK W WO | | MNNHNPUT19/26/2016 10:30 AM HISTORY:60 years. Male. Stroke TECHNIQUE:5-mm [...] The data set was also examined with Hybrid Paytecha 3D software | | for evaluation of [...] cerebral artery: Normal.Left posterior cerebral artery: Normal. [place] | | [place]:Anterior communicating artery: Normal.Right [...] | | | | | makeup editor Ashley Fan | | | | | | (79) on 02/01/2016 | | | | | | 6:48:58 PM | | | | + + + + + + + + | Specimen | + + | | + + + + + | Narrative | Performed At | + + + | Historically converted procedure from [facility] Epic environment | EXTERNAL LAB [...] | LAB | | | | [address];[place], [place] | | | | | | [address] | | | | + + + [...] [place] | | LAB | | | | [address];[place] | | | | | | [address] | | | | + + + + + + | Clarity, | CLEARComment: Testing | | EXTERNAL | | | Urine | performed at [facility] | | LAB | | | [address];[place] | | | | | | [address] | | | | + + + + + + | Specific | 1.010Comment: Testing | 1.002 - 1.030 | EXTERNAL | | | [place], | performed at [facility] | | LAB | | | Urine | [address];[place] | | | | | | [address] | | | | + + + + + + | Leukocyte | NEGATIVEComment: Testing | | EXTERNAL | | | Esterase, | performed at [facility] | | LAB | | | Urine | [address];[place] | | | | | | [address] | | | | + + + + + + | Nitrite, | NEGATIVEComment: Testing | | EXTERNAL | | | Urine | performed at [facility] | | LAB | | | | [address];[place] | | | | | | [address] | | | | + + + + + + | Urobilinoge | NORMALComment: Testing | mg/dL | EXTERNAL | | | n, Urine | performed at [facility] | | LAB | | | | [address];[place] | | | | | | [address] | | | | + + + + + + | Protein, | NEGATIVEComment: Testing | mg/dL | EXTERNAL | | | Urine | performed at [facility];[address] | | LAB | | | | [address];[place] | | | | | | [address] | | | | + + + + + + | pH, Urine | 5.0Comment: Testing | 5.0 - 8.0 | EXTERNAL | | | | performed at [facility] | | LAB | | | | [address];[place] | | | | | | [address] | | | | + + + + + + | Blood, | NEGATIVEComment: Testing | | EXTERNAL | | | Urine | performed at [facility] | | LAB | | | | [address];[place] | | | | | | [address] | | | | + + + + + + | Ketones | NEGATIVEComment: Testing | mg/dL | EXTERNAL | | | | performed at [facility];[address] | | LAB | | | | [address];[place] | | | | | | [address] | | | | + + + + + + | Bilirubin, | NEGATIVEComment: Testing | | EXTERNAL | | | Urine | performed at [facility];[address] | | LAB | | | | [address];[place] | | | | | | [address] | | | | + + + + + + | Glucose, | >500 (A)Comment: Testing | mg/dL | EXTERNAL | | | Urine | performed at [facility];[address] | | LAB | | | | [address];[place], [place] | | | | | | [address] | | | | + + + [...] [place] | | | | | | [address] | | | | + + + + + -+ | Non- | 4.81Comment: Testing | 4.20 - 5.70 | EXTERNAL | | | Red Blood | performed at [facility];[address] | M/uL | LAB | | | Cells | [address];[place] | | | | | Counted | [address] | | | | + + + + + -+ | Hemoglobin | 13.2Comment: Testing | 13.2 - 17.0 | EXTERNAL | | | | performed at [facility];[address] | g/dL | LAB | | | | [address];[place] | | | | | | [address] | | | | + + + + + -+ | Hematocrit, | 39.3Comment: Testing | 39.0 - 50.0 % | EXTERNAL | | | POC | performed at [facility];[address] | | LAB | | | | [address];[place] | | | | | | [address] | | | | + + + + + -+ | MCV | 81.8Comment: Testing | 80.0 - 100.0 fl | EXTERNAL | | | | performed at [facility];[address] | | LAB | | | | [address];[place] | | | | | | [address] | | | | + + + + + -+ | MCH | 27.4Comment: Testing | 27.0 - 34.0 pg | EXTERNAL | | | | performed at [facility];[address] | | LAB | | | | [address];[place] | | | | | | [address] | | | | + + + + + -+ | MCHC | 33.6Comment: Testing | 32.0 - 35.5 | EXTERNAL | | | | performed at [facility];[address] | g/dL | LAB | | | | [address];[place] | | | | | | [address] | | | | + + + + + -+ | RDW-CV | 42.4Comment: Testing | 37 - 53 fl | EXTERNAL | | | | performed at [facility];[address] | | LAB | | | | [address];[place] | | | | | | [address] | | | | + + + + + -+ | Platelet | 214Comment: Testing | 150 - 400 K/uL | EXTERNAL | | | Count | performed at [facility];[address] | | LAB | | | Plasma | [address];[place] | | | | | | [address] | | | | + + + + + -+ | MPV | 7.6Comment: Testing | fl | EXTERNAL | | | | performed at [facility];[address] | | LAB | | | | [address];[place] | | | | | | [address] | | | | + + + + + -+ | Differentia | AUTOMATEDComment: | | EXTERNAL | | | l Type | Testing performed at | | LAB | | | | [facility];[address];[place] [address] | | | | + + + + + -+ | % Segmented | 52.22Comment: Testing | % | EXTERNAL | | | | performed at [facility];[address] | | LAB | | | Neutrophils | [address];[place] | | | | | | [address] | | | | + + + + + -+ | % | 30.51Comment: Testing | % | EXTERNAL | | | Lymphocytes | performed at [facility];[address] | | LAB | | | | [address];[place] | | | | | | [address] | | | | + + + + + -+ | % Monocytes | 11.41Comment: Testing | % | EXTERNAL | | | | performed at [facility];[address] | | LAB | | | | [address];[place] | | | | | | [address] | | | | + + + + + -+ | % | 5.19Comment: Testing | % | EXTERNAL | | | Eosinophils | performed at [facility];[address] | | LAB | | | | [address];[place] | | | | | | [address] | | | | + + + + + -+ | % Basophils | 0.67Comment: Testing | % | EXTERNAL | | | | performed at [facility];[address] | | LAB | | | | [address];[place] | | | | | | [address] | | | | + + + + + -+ | Absolute | 4.39Comment: Testing | 1.90 - 7.40 | EXTERNAL | | | Segmented | performed at [facility];[address] | K/uL | LAB | | | Neutrophils | [address];[place] | | | | | | [address] | | | | + + + + + -+ | Absolute | 2.57Comment: Testing | 1.00 - 3.90 | EXTERNAL | | | Lymphocytes | performed at [facility];[address] | K/uL | LAB | | | | [address];[place] | | | | | | [address] | | | | + + + + + -+ | Absolute | 0.96 (H)Comment: Testing | 0.00 - 0.80 | EXTERNAL | | | Monocytes | performed at [facility];[address] | K/uL | LAB | | | | [address];[place] | | | | | | [address] | | | | + + + + + -+ | Absolute | 0.44Comment: Testing | 0.00 - 0.50 | EXTERNAL | | | Eosinophils | performed at [facility];[address] | K/uL | LAB | | | | [address];[place] | | | | | | [address] | | | | + + + + + -+ | Absolute | 0.06Comment: Testing | 0.00 - 0.10 | EXTERNAL | | | Basophils | performed at [facility];[address] | K/uL | LAB | | | | [address];[place] | | | | | | [address] | | | | + + + + + -+ | Na | 138Comment: Testing | 135 - 145 | EXTERNAL | | | | performed at [facility];[address] | mmol/L | LAB | | | | [address];[place] | | | | | | [address] | | | | + + + + + -+ | K | 3.8Comment: Testing | 3.5 - 4.9 | EXTERNAL | | | | performed at [facility];[address] | mmol/L | LAB | | | | [address];[place] | | | | | | [address] | | | | + + + + + -+ | Cl | 99Comment: Testing | 99 - 109 mmol/L | EXTERNAL | | | | performed at [facility];[address] | | LAB | | | | [address];[place] | | | | | | [address] | | | | + + + + + -+ | CO2 | 29Comment: Testing | 23 - 32 mmol/L | EXTERNAL | | | | performed at [facility];[address] | | LAB | | | | [address];[place] | | | | | | [address] | | | | + + + + + -+ | Anion Gap | 14Comment: Testing | 5 - 20 mmol/L | EXTERNAL | | | | performed at [facility];[address] | | LAB | | | | [address];[place] | | | | | | [address] | | | | + + + + + -+ | Glucose, | 265 (H)Comment: Testing | 65 - 99 mg/dL | EXTERNAL | | | Fasting | performed at [facility];[address] | | LAB | | | | [address];[place] | | | | | | [address] | | | | + + + + + -+ | BUN | 12Comment: Testing | 8 - 25 mg/dL | EXTERNAL | | | | performed at [facility];[address] | | LAB | | | | [address];[place] | | | | | | [address] | | | | + + + + + -+ | Creatinine | 1.1Comment: Testing | 0.70 - 1.30 | EXTERNAL | | | | performed at [facility];[address] | mg/dL | LAB | | | | [address];[place] | | | | | | [address] | | | | + + + + + -+ | BUN/Creatin | 11Comment: Testing | | EXTERNAL | | | ine Ratio | performed at [facility];[address] | | LAB | | | | [address];[place] | | | | | | [address] | | | | + + + + + -+ | Calcium | 8.3 (L)Comment: Testing | 8.5 - 10.5 | EXTERNAL | | | | performed at [facility];[address] | mg/dL | LAB | | | | [address];[place] | | | | | | [address] | | | | + + + + + -+ | Protein, | 6.9Comment: Testing | 6.3 - 8.2 g/dL | EXTERNAL | | | Total | performed at [facility];[address] | | LAB | | | | [address];[place] | | | | | | [address] | | | | + + + + + -+ | Albumin | 2.9 (L)Comment: Testing | 3.3 - 4.8 g/dL | EXTERNAL | | | | performed at [facility];[address] | | LAB | | | | [address];[place] | | | | | | [address] | | | | + + + + + -+ | Globulin | 4.0Comment: Testing | 1.3 - 4.9 g/dL | EXTERNAL | | | | performed at [facility];[address] | | LAB | | | | [address];[place] | | | | | | [address] | | | | + + + + + -+ | A/G Ratio | 0.7 (L)Comment: Testing | 1.0 - 2.4 | EXTERNAL | | | | performed at [facility];[address] | | LAB | | | | [address];[place] | | | | | | [address] | | | | + + + + + -+ | Bilirubin | 0.4Comment: Testing | 0.1 - 1.5 mg/dL | EXTERNAL | | | Total | performed at [facility];[address] | | LAB | | | | [address];[place] | | | | | | [address] | | | | + + + + + -+ | ALP, | 79Comment: Testing | 35 - 115 U/L | EXTERNAL | | | External | performed at [facility];[address] | | LAB | | | | [address];[place] | | | | | | [address] | | | | + + + + + -+ | AST | 24Comment: Testing | 10 - 45 U/L | EXTERNAL | | | | performed at [facility];[address] | | LAB | | | | [address];[place] | | | | | | [address] | | | | + + + + + -+ | ALT | 26Comment: Testing | 10 - 65 U/L | EXTERNAL | | | | performed at [facility];[address] | | LAB | | | | [address];[place] | | | | | | [address] | | | | + + + [...] | at [facility];[address] [facility] | | | | | | Blvd;[place] [address] | | | | + + + + + -+ | CK, Total | 120Comment: Testing | 55 - 400 U/L | EXTERNAL | | | | performed at [facility];[address] | | LAB | | | | [address];[place] | | | | | | [address] | | | | + + + [...] [place] | | | | | | [address] | | | | + + + + + -+ | aPTT, | 27Comment: Testing | 23 - 32 seconds | EXTERNAL | | | Patient | performed at [facility];[address] | | LAB | | | | [address];[place] | | | | | | [address] | | | | + + + + + -+ | CK-MB | 1.6Comment: Testing | 0.5 - 3.6 ng/mL | EXTERNAL | | | | performed at [facility];[address] | | LAB | | | | [address];[place] | | | | | | [address] | | | | + + + [...] | | | | | | ACUTE SC Testing | | | | | | performed at [facility];[address] | | | | | | [facility];[place], [place] | | | | | | [address] | | | | + + + [...] Type 2 diabetes mellitus with hyperglycemia, unspecified [facility] insulin use status | + + documented in this encounter
--- OUTSIDE RECORDS SUMMARY | ~2019-09-09 | XMS | Encounter Summary ---
Demographics + + + | Address | [address] | | | [place] [address] | + + + | Home Phone [...] | Sammi Kohler | ECON | [place] [address] | | + + + + + Care Team Providers + +------+ + | Care Iso Coordinator Name | Role | Phone | + +------+ + PCP | Unavailable | + +------+ + Encounter Details +--------+ + + + + | Date | Type | Department | Care Team | Description | +--------+ + + + + | 09/21/ | Emergency | [facility] | Kristian Mae | Post-op bleeding | | 2012 | | [facility]ICAL CENTER | MD [address] | | | | | EMERGENCY CENTER | [place], | | | | | [address] | [place] [address] | | | | | [place], [place] | [phone] | | | | | [address] | | | | | | [phone] | | | +--------+ + + + [...] 09/21/121047 Date of Service: 09/21/121045 Status: Signed Programs Director: Maribeth Lew RN (Registered Nurse) Disposable shirt [...] Date of Service: 09/21/12 1036 Status: Signed Programs Director: Maribeth Lew RN (Registered Nurse) Dressing changed [...] 09/21/12938 Date of Service: 09/21/12938 Status: Signed Programs Director: Maribeth Lew RN (Registered Nurse) Urinal given Maribeth Lew RN 09/21/12938 onver ivana Transaction, Provider Unknown - 09/21/2012 9:32 AM PDT ED Notes by Maribeth Lew RN at 09/21/12 0932 Author: Maribeth Lew RN Service: (none) Author Type: Registered Nurse Filed: 09/21/1232 Date of Service: 09/21/12931 Status: Signed Programs Director: Maribeth Lew RN (Registered Nurse) MD at bedside Maribeth Lew RN 09/21/12931 Kristian Vinson MD - 09/21/2012 9:31 AM PDT ED Provider Notes by Kristian Mae MD at 09/21/12930 Author: Kristian Mae MD Service: (none) Author Type: Physician Filed: 09/21/122045 Date of Service: 09/21/12930 Status: Signed Programs Director: Kristian Mae MD (Physician) [facility] Department of Emergency Medicine 9:32 AM History [...] CHOLECYSTECTOMY; Surgeon: Jevon Vargas DO; Location: [facility] MAIN OR; Service: General; Laterality: [...] sore throat CV/Resp: Negative for chest pain, iqacrglum-is-yiqfgt, cough GI: Negative for nausea, vomiting, or [...] Dr Vargas for his scheduled appt this chasity week and we discussed the emergent signs and symptoms that would necessitate a return t o ED. All questions and concerns addressed. Records Reviewed Old medical records. Nursing notes. [place] [facility] [place] for unrelated complaints. Old ED records reviewed (Using the electronic record system of [facility], I ailyn michaely reviewed the records with regard to the past medical/surgical history, previous medic ations, and allergies). ED Diagnosis Final diagnosis Post-op bleeding Disposition: ED Disposition Orders Discharge Condition at discharge: Stable Follow-up Information Follow up With Details Comments Contact Info Jevon Vargas DO as scheduled [address] [place] [facility] [address] [facility] Emergency Department As needed if symptoms worsen [address] [facility] [address] Jerrell Gutiérrez DO Additional Documentation Procedures Attending [...] 09/21/12930 Date of Service: 09/21/12929 Status: Signed Programs Director: Maribeth Lew RN (Registered Nurse) Patient states [...] 09/21/12917 Date of Service: 09/21/12917 Status: Signed Programs Director: Maribeth Lew RN (Registered Nurse) Bed:02
Expected date:
Expected time:
Means of arrival:[facility] 1723
C omments:
Post op bleeding from op site 154/98, HR 82, conscious and alert docume nted in this encounter Plan of Treatment +--------+---------+ + + + | Date | Type | Specialty | Care Team | Description | +--------+---------+ + + + | 09/10/ | Office | Geriatric Medicine | Mireya Pack, | | | 2019 | Visit | | TAIL SAWYER [address] | | | | | | [address] [place], | | | | | | [place] [address] | | | | | | [phone] | | | | | | | | +--------+---------+ + + + | 09/29/ | Office | Urology | Mireya Pack, | | | 2019 | Visit | | TAIL SAWYER [address] | | | | | | [address] [place], | | | | | | [place] [address] | | | | | | [phone] | | | | | | | | | | | | Toy Wild, DO | | | | | | [address] | | | | | | [place] [address] | | | | | | [phone] | | | | | | | | +--------+---------+ + + + documented as of this encounter Visit Diagnoses + + | Diagnosis | + + | Post-op bleeding Hemorrhage complicating a procedure | + + documented in this encounter
--- OUTSIDE RECORDS SUMMARY | ~2019-09-09 | XMS | Encounter Summary ---
Demographics + + + | Address | [address] | | | [place] [address] | + + + | Home Phone [...] + | Sammi Kohler | ECON | [place] [address] | | + + + + + Care Team Providers + +------+ + | Care Mortgage Banker Name | Role | Phone | + [...] 09/16/ | | [address] | [place] [address] | subsequent | | 2014 | | [place], [place] | [phone] | encounter; Chronic | | | | [address] | | back pain | | | | [phone] | | | +--------+ + + + [...] 09/16/149 Date of Service: 09/16/149 Status: Signed Road Crew Member: Yanna Loera RN (Registered Nurse) Pt to be DC home, taxi called. Pt aware. Yanna Loera RN 09/16/149 onver ivana Transaction, Provider Unknown - 09/16/2014 12:00 AM PDT ED Notes by Yanna Loera RN at 09/16/14 0000 Author: Yanna Loera RN Service: (none) Author Type: Registered Nurse Filed: 09/16/149 Date of Service: 09/16/14 Status: Signed Road Crew Member: Yanna Loera RN (Registered Nurse) Pt c/o Chest Pain upon hearing he will be discharged home. EKG done and shown to Dr. Souza. Yanna Loera RN 09/16/149 onver ivana Transaction, Provider Unknown - 09/15/2014 10:49 PM PDT ED Notes by Ashley Selby RN at 09/15/142248 Author: Ashley Selby RN Service: (none) Author Type: Registered Nurse Filed: 09/15/142248 Date of Service: 09/15/142248 Status: Signed Road Crew Member: Ashley Selby RN (Registered Nurse) Pt remains at xray. Ashley Selby RN 09/15/142248 onver ivana Transaction, Provider Unknown - 09/15/2014 10:35 PM PDT ED Notes by Ashley Selby RN at 09/15/142234 Author: Ashley Selby RN Service: (none) Author Type: Registered Nurse Filed: 09/15/142234 Date of Service: 09/15/142234 Status: Signed Road Crew Member: Ashley Selby RN (Registered Nurse) Pt remains at xray. Ashley Selby RN 09/15/142234 Ana Zuñiga PA-C - 09/15/2014 10:06 PM PDTFormatting of this note might be different from the o riginal. ED Provider Notes by Ana Victoria PA-C at 09/15/142205 Author: Ana Victoria PA-C Service: Emergency Department Author Type: Physician Motor Transport Inspector - Certified Filed: 09/20/14 1119 Date of Service: 09/15/142205 Status: Attested Road Crew Member: Ana Victoria PA-C (Physician Motor Transport Inspector - Certified) Cosigner: Xander Jacobo at 09/20/142249 Attestation signed by Elmo Souza DO at 09/20/142249 I was present for veronica portions of this patient's care during their visit today. I supervis ed the APC in their care provided at this visit. ELMO SOUZA Procedures [facility] Department of Emergency Medicine HPI History of [...] pain Stroke (HCC) TIA (transient ischemic attack) MCFP (current) use of 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 Past Surgical History Procedure Laterality Date Unlisted procedure arthroscopy Knee surgery rt knee, patella Leg surgery LLE Colonoscopy Cholecystectomy, laparoscopic 09/12/2012 Procedure: LAPAROSCOPIC - CHOLECYSTECTOMY; Surgeon: Jevon Vargas DO; Location: [facility] MAIN OR; Service: General; Laterality: N/A; Abdominal surgery Cholecystectomy Skin cancer excision 10/10/2012 Procedure: EXCISION - SKIN CANCER; Surgeon: Sy Fierro MD; Location: [facility] MAIN OR ; Service: Plastics; Laterality: Left; upper arm and upper back w/frozen section Esophagogastroduodenoscopy 03/03/2013 Procedure: ESOPHAGOGASTRODUODENOSCOPY; Surgeon: Howie Gibson MD; Location: [facility] ENDOSCOPY; S ervice: Gastroenterology; Laterality: N/A; Colonoscopy 03/04/2013 Procedure: COLONOSCOPY; Surgeon: Howie Gibson MD; Location: [facility] ENDOSCOPY; Service: Gastroe nterology; Laterality: N/A; Upper gastrointestinal endoscopy Skin biopsy Hernia repair 07/03/2013 Procedure: LAPAROSCOPIC - HERNIA - INCISIONAL; Surgeon: Jevon Vargas DO; Location: [facility] MAIN OR; Service: General; Laterality: N/A; Skin lesion excision Left 05/05/2014 Procedure: EXCISION - LESION - FROZEN SECTION; Surgeon: Sy Fierro MD; Location: [facility] MAIN OR; Service: Plastics; Laterality: Left; forearm Prior to Admission medications Medication Sig Start Date End Date Taking? Authorizing Provider Albuterol Sulfate (VENTOLIN HFA IN) Inhale 2 puffs into the lungs as needed. 108 mcg/act Historical Provider Tvaum-W-Bovkvadojwiom (BEANO) TABS Take 150 Units by mouth [...] 100 mg by mouth nightly. Historical Provider nthubinmv-ougokngs-qmasyawdj hydroxide-simethicone Take 40 mLs by mouth daily [...] of Children: 1 Years of Education: s. [employer] Occupational History disabled Social History Main Topics [...] Intoxication Result: Nexus C-spine rule negative [employer] Criteria for Head CT Inclusion: GCS = [...] IV meds feeling he can walk okay. 2250 returns from xray 2319 xrays read 2324 [...] EKG Interpretation Rhythm: Sinus Ventricular Rate: 62 ID Interval: Normal ST Segments: Normal Significant [...] worsen [address] [facility] [address] Discharge Medications: Discharge Medication List as of 09/15/2014 11:41 PM Ana Victoria PA-C 09/20/14 1119 Elmo Souza DO 09/20/14 7662 onversion Transacti on, Provider Unknown - 09/15/2014 9:43 PM PDTFormatting of this note might be different fro m the original. ED Notes by Ashley Selby RN at 09/15/142142 Author: Ashley Selby RN Service: (none) Author Type: Registered Nurse Filed: 09/15/142143 Date of Service: 09/15/142142 Status: Signed Road Crew Member: Ashley Selby RN (Registered Nurse) Pt complaining [...] | | 2019 | Visit | | WASTEWATER PROCESS ENGINEER [address] | | | | | | [address] [place], | | | | | | [place] [address] | | | | | | [phone] | | | | | | | | +--------+---------+ + + + | 09/29/ | Office | Urology | Mireya Pack, | | | 2020 | Visit | | WASTEWATER PROCESS ENGINEER [address] | | | | | | [address] [place], | | | | | | [place] [address] | | | | | | [phone] | | | | | | | | | | | | Toy Wild, DO | | | | | | [address] | | | | | | [place] [address] | | | | | | [phone] | | | | | | | [...] of | | | | | | 31-AUG-2014 06:14,No | | | | | | [...] | | | | | ONLY, -COMPUTER ([id number]), | | | | | | newspaper [...] + + | [facility] | + [...] Joaquin Ramos - 09/20/2018 10:29 PM PDT HISTORY: 58-year-old [...] Ramos Conversion - 09/20/2018 10:29 PM PDT HISTORY: [...]
--- OUTSIDE RECORDS SUMMARY | ~2019-09-09 | XMS | Encounter Summary ---
Demographics + + + | Address | [address] | | | [place] [address] | + + + | Home Phone [...] + | Sammi Kohler | ECON | [place] [address] | | + + + + + Care Team Providers + +------+ + | Care Electrical Engineering Teacher Name | Role | Phone | + +------+ + PCP | Unavailable | + +------+ + Encounter Details +--------+ + + + + | Date | Type | Department | Care Team | Description | +--------+ + + + + | 01/29/ | Emergency | [facility] | Norah Don, | Chest pain, | | 2013 - | | [facility]ICAL CENTER | MD [facility] [address] [facility] [address] | atypical; | | | | EMERGENCY CENTER | [place], [place] | Uncontrolled | | 01/30/ | | [address] | [address] | hypertension; | | 2012 | | [place], [place] | | Uncontrolled | | | | [address] | | diabetes mellitus | | | | [phone] | | ([facility]) | +--------+ [...] 01/30/13426 Date of Service: 01/30/13426 Status: Signed Bell Spinner: Suresh Marin RN (Registered Nurse) Pt to lobby to wait for cab ride home. Suresh Marin RN 01/30/13426 onver ivana Transaction, Provider Unknown - 01/30/2013 4:26 AM PST ED Notes by Suresh Marin RN at 01/30/13425 Author: Suresh Marin RN Service: (none) Author Type: Registered Nurse Filed: 01/30/13425 Date of Service: 01/30/13425 Status: Signed Bell Spinner: Suresh Marin RN (Registered Nurse) Pt awake alert, resting quietly with no complaints voiced Suresh Marin RN 01/30/13425 onver ivana Transaction, Provider Unknown - 01/30/2013 3:04 AM PST ED Notes by Elroy Nowak RN at 01/30/13303 Author: Elroy Nowak RN Service: (none) Author Type: Registered Nurse Filed: 01/30/13303 Date of Service: 01/30/13303 Status: Signed Bell Spinner: Elroy Nowak RN (Registered Nurse) Awake, A/o x3, states his pain has improved. No other c/o at this time. Awaiting re-eval. Elroy Nowak RN 01/30/13303 onver ivana Transaction, Provider Unknown - 01/30/2013 2:05 AM PST ED Notes by Elroy Nowak RN at 01/30/13204 Author: Elroy Nowak RN Service: (none) Author Type: Registered Nurse Filed: 01/30/13204 Date of Service: 01/30/13204 Status: Signed Bell Spinner: Elroy Nowak RN (Registered Nurse) Appears asleep, respirations even and unlabored, no s/s distress evident. Awaiting re-eval . Elroy Nowak RN 01/30/13204 onver ivana Transaction, Provider Unknown - 01/30/2013 2:05 AM PST ED Notes by Elroy Nowak RN at 01/30/13204 Author: Elroy Nowak RN Service: (none) Author Type: Registered Nurse Filed: 01/30/13204 Date of Service: 01/30/13204 Status: Signed Bell Spinner: Elroy Nowak RN (Registered Nurse) Report received and care assumed. Elroy Nowak RN 01/30/13204 axNorah daly MD - 01/29/2013 10:18 PM PST ED Provider Notes by Norah Don MD at 01/29/132217 Author: Norah Don MD Service: (none) Author Type: Physician Filed: 01/30/13399 Date of Service: 01/29/132217 Status: Signed Bell Spinner: Norah Don MD (Physician) [facility] Department of Emergency Medicine History of Present Illness Norah Gr is a 57 y.o. male presenting with chest pain. Patient information was obtain ed from patient. History/Exam limitations: none. Patient presented to the Emergency Depart [facility] 1723. Chief Complaint Patient presents with Chest Pain C/o substernal CP radiating to LUE. Norah Gr presents for evaluation of chest pain that [...] 18 mcg into the lungs daily. Yes [facility] Provider Allergies Allergen Reactions B12-Ca Rash "B12" [...] Narrative Lives in usp, IADL, full code Patient is a local [...] motor deficits, moving all extremities equally, equal hydration plant operator, no sensory deficit. Psych: Appropriate affect, [...] up. Patient will be placed on the telemetry monitor to ensure no life threatening arrhyt hmia [...] of continued outpatient follow up with t PMD/home energy rater and further testing (if deemed necessary by [...] complain t. Patient has remained on the telemetry monitor for the duration of their Emergency Departme [...] up wi either the regular provider or home energy rater regional forester for further cardiac evaluation Last nuclear stress [...] Value Ref Range Date/Time Troponin I, Lab [[id number]] Collected:01/30/13329 Order Status:Sent Updated:01/30/13342 Specimen Information:Blood Troponin I [[id number]] Collected:01/29/132210 Order Status:Completed Updated:01/30/13338 TROPONIN I <0.020 0.00 - 0.10 ng/mL Cardiac Panel [[id number]] (Abnormal) Collected:01/29/132210 Order Status:Completed Updated:01/29/132242 WBC 8.8 [...] ng/mL CK-MB Index 1.6 POC cardiac troponin [[id number]] Collected:01/29/132218 Order Status:Completed Updated:01/29/132233 POC CARDIAC TROPONIN 0.00 0.00 - 0.10 ng/mL Radiology and EKG Evaluation Imaging Results XR Chest PA and Lateral (Preliminary result) Result time:01/29/132258 ED Interpretation Documented by Norah Don MD (01/29/132258, [facility], Emergency Medicine) Normal CXR without infiltrate and no mass EKG Interpretation - January 29, 2013 at 22:18 Rhythm: Sinus Ventricular Rate: 67 KS Interval: Normal ST Segments: Normal Significant Q-waves: None Blocks: None Monroe: Normal Additional Comments: No acute ischemia ED Diagnoses Final diagnoses Chest pain, atypical Uncontrolled hypertension Uncontrolled diabetes mellitus with hyperglycemia Disposition: ED Disposition Discharge Condition at discharge: Stable . Follow-up Information Follow up With Details Comments Contact Info Jerrell Gutiérrez DO Schedule an appointment as soon as possible for a visit [address] [facility] [address] Discharge Medications: New Prescriptions No new medications [...] 01/29/132212 Date of Service: 01/29/132212 Status: Signed Bell Spinner: Elroy Nowak RN (Registered Nurse) Bed:02
Expected date:
Expected time:
Means of arrival:
Comments:
onver ivana Transaction, Provider Unknown - 01/29/2013 10:01 PM PST ED Notes by Elroy Nowak RN at 01/29/132200 Author: Elroy Nowak RN Service: (none) Author Type: Registered Nurse Filed: 01/29/132248 Date of Service: 01/29/132200 Status: Signed Bell Spinner: Elroy Nowak RN (Registered Nurse) Per EMS pt c/o CP radiating to LUE and LLE. Seen recently for simlar c/o. Elroy Nowak RN 01/29/13 2249 Genaro wilson in this encounter Plan of Treatment +--------+---------+ + + + | Date | Type | Specialty | Care Team | Description | +--------+---------+ + + + | 09/10/ | Office | Geriatric Medicine | Mireya Pack, | | | 2019 | Visit | | STEAM BOILER FIREMAN [address] | | | | | | [address] [place], | | | | | | [place] [address] | | | | | | [phone] | | | | | | | | +--------+---------+ + + + | 09/29/ | Office | Urology | Mireya Pack, | | | 2019 | Visit | | STEAM BOILER FIREMAN [address] | | | | | | [address] [place], | | | | | | [place] [address] | | | | | | [phone] | | | | | | | | | | | | Toy Wild DO | | | | | | [address] | | | | | | [place] [address] | | | | | | [phone] | | | | | | | [...] XR CHEST 2 VIEW FRONTAL AND LATERAL 01/29/2013 [...] CHEST 2 VIEW FRONTAL | | AND VUJUKJX1801/29/2013 10:48 PM HISTORY:Chest pain. TECHNIQUE:Dual energy frontal [...] | | | | | | book editor ZAYNAB HUNT | | | | [...]
--- OUTSIDE RECORDS SUMMARY | ~2019-09-09 | XMS | Encounter Summary ---
Demographics + + + | Address | [address] | | | [place] [address] | + + + | Home Phone | | + + + | Preferred Language | Unknown | + + + | Marital Status | | + + + | Taoist Affiliation | 1027 | + + + | Race | Unknown | + + + | Ethnic Group | Unknown | + + + Author + + + | Author | [facility] | | | and [place] | + + + | Organization | [facility] | | | and [place] | + + + | Address | Unknown | + + + | Phone | Unavailable | + + + Support + + + + + | Name | Relationship | Address | Phone | + + + + + | Sammi Kohler | ECON | [place] [address] | | + + + + + Care Team Providers + +------+ + | Care Industrial Designer Name | Role | Phone | [...] | Cardiology | Diagnoses | John, | Asher, | | | Services | | Prolonged | CITLALY Wright | MD Thang | | | Required | | Q-T interval | [address] | [address] | | | | | on ECG | [address] | [address] | | | | | Atrial | [address] | [place], [place] | | | | | fibrillation | [place], [place] | [address] Phone: | | | | | with RVR | [address] | [phone] | | | | | (HCC) | Phone: | Fax: | | | | | Murmur | [phone] | [phone] | | | | | | Fax: | | | | | | | [phone] | | + + + + + + + Encounter Details +--------+---------+ + + + | Date | Type | Department | Care Team | Description | +--------+---------+ + + + | 01/16/ | Office | [facility] [place] | SikhraAdriana ireland, | Dizziness (Primary | | 2019 | Visit | [facility] | HEEL PRICKER [address] | Dx); Essential | | | [address] | [address] [place], | hypertension; | | | | [place], [place] | [place] [address] | Uncontrolled type 2 | | | | [address] | [phone] | diabetes mellitus | | | | [phone] | | with hyperglycemia | | | | | | ([facility]); Leg swelling; | | | | | | Prolonged Q-T | | | | | | interval on ECG; | | | | | | Atrial fibrillation | | | | | | with RVR ([facility]); | | | | | | Murmur; [...] 01/16/2019 4:00 PM Swapna is a pleasure mindi mills in clinic today. I look forward in [...] noted above has been collected by clinical data support specialist* Patient ID: Kevyn Guzman is a 63 [...] the ED. Pt was also seen by escort service attendant, Dr. Goodrich. Had ear la vage. Able [...] and imaging Patient Care Team: Mireya Pack, TEMPORARY ADMINISTRATIVE ASSISTANT as PCP - General (Nurse Practitioner - [...] - CHOLECYSTECTOMY; Surgeon: Jevon Vargas DO; Location: [facility] MAIN OR; Service: General; Laterality: N/A; COLONOSCOPY COLONOSCOPY 03/04/2013 Procedure: COLONOSCOPY; Surgeon: Howie Gibson MD; Location: [facility] ENDOSCOPY; Service: Gastroen terology; Laterality: N/A; HERNIA REPAIR 07/03/2013 Procedure: LAPAROSCOPIC - HERNIA - INCISIONAL; Surgeon: Jevon Vargas DO; Location: [facility] MAIN OR; Service: General; Laterality: N/A; KNEE SURGERY rt knee, patella LEG SURGERY LLE OTHER SURGICAL HISTORY UNLISTED PROCEDURE ARTHROSCOPY OTHER SURGICAL HISTORY Left 05/05/2014 SKIN LESION EXCISION - Procedure: EXCISION - LESION - FROZEN SECTION; Surgeon: Sy murcia MD; Location: [facility] MAIN OR; Service: Plastics; Laterality: Left; forearm SKIN BIOPSY SKIN CANCER EXCISION Left 10/10/2012 Procedure: EXCISION - SKIN CANCER; Surgeon: Sy Fierro MD; Location: [facility] MAIN OR; Service: Plastics; Laterality: Left; upper arm and upper back w/frozen section UPPER GASTROINTESTINAL ENDOSCOPY UPPER GASTROINTESTINAL ENDOSCOPY 03/03/2013 Procedure: ESOPHAGOGASTRODUODENOSCOPY; Surgeon: Howie Gibson MD; Location: [facility] ENDOSCOPY; Se rvice: Gastroenterology; Laterality: N/A; [...] file Gets together: Not on file Attends sabianist service: Not on file Active member of [...] leads Confirmed by MUSE READ ONLY, -COMPUTER ([id number]), purchase request editor Stevens Roberto Sánchez ([id number]) on 9 4:44:16 AM - Ambulatory referral to [facility] 6. Atrial fibrillation with RVR (HCC): Pt is taking Eliquis and nifedipine. Rate controlled . -Continue with current medication. - Ambulatory referral to [facility] 7. Murmur: Echo was ordered by PCP for evaluation; but it not done or scheduled. Took to [facility] coordinator to schedule ECHO. - Ambulatory referral to [facility] 8. Left ear impacted cerumen: Follow-up with Dr. Goodrich for cleaning. RTC in March ([facility] schedule to follow-up with PCP; CITLALY Pereira) [...] management. This document has been created using [employer] Voice Recognition software. The entry h as [...] | | 2019 | Visit | | TEMPORARY ADMINISTRATIVE ASSISTANT [address] | | | | | | [address] [facility], | | | | | | [place] [address] | | | | | | [phone] | | | | | | | | +--------+---------+ + + + | 09/29/ | Office | Urology | Mireya Pack, | | | 2019 | Visit | | TEMPORARY ADMINISTRATIVE ASSISTANT [address] | | | | | | [address] [place], | | | | | | [place] [address] | | | | | | [phone] | | | | | | | | | | | | Toy Wild, DO | | | | | | [address] | | | | | | [place] [address] | | | | | | [phone] | | | | | | | | +--------+---------+ + + + + + +--------+ + + | Name | Type | Priori | Associated Diagnoses | Order Schedule | | | | ty | | | + + +--------+ + + | Ambulatory referral | Outpatient | Routin | Prolonged Q-T | Ordered: 01/16/2019 | | to [facility] | Referral | e | interval on ECG | | | | | | Atrial fibrillation | | | | | | with RVR ([facility]) | | | | | | Murmur [...]
--- OUTSIDE RECORDS SUMMARY | ~2019-09-09 | XMS | Encounter Summary ---
Demographics + + + | Address | [address] | | | [place] [address] | + + + | Home Phone [...] + | Sammi Kohler | ECON | [place] [address] | | + + + + + Care Team Providers + +------+ + | Care Busser Name | Role | Phone | + +------+ + PCP | Unavailable | + +------+ + Encounter Details +--------+ + + + + | Date | Type | Department | Care Team | Description | +--------+ + + + + | 04/18/ | Hospital | [facility] | Elizabeth Ochoa, | Chest pain; COPD | | 2014 - | Encounter | MEDICAL [facility]ENTER | MD [address] | (chronic obstructive | | | | CLINICAL DECISION | [place] [address] | pulmonary disease) | | 04/20/ | | [address] | [phone] | ([facility]); Diabetes | | 2013 | | [place], [place] | | mellitus type II; | | | | [address] | | HTN (hypertension); | | | | [phone] | | Hyperlipidemia; | | | | [...] Date of Service: 04/20/13 1033 Status: Signed Furnace Mechanic Helper: Patti Deleon RN (Registered Nurse) I called the assisted living and talked to Thomas's RN and told her that Thomas had not taken any of his pills for the morning and would need to take them there as he had promised. onver ivana Transaction, Provider Unknown - 04/20/2013 10:10 AM PDT Discharge Summaries by Patti Deleon RN at 04/20/13 1010 Author: Patti Deleon RN Service: (none) Author Type: Registered Nurse Filed: 04/20/13 1013 Date of Service: 04/20/13 1010 Status: Signed Furnace Mechanic Helper: Patti Deleon RN (Registered Nurse) Discharge paper work faxed to [facility],after calling them and notifyi ng them that patient has been discharged and will be there via taxi.taxi has been notified a nd patient ,in a hurry to go and play Bingo,has been escorted via wheel chair to the [facility] t o wait for taxi. Bang Mcleod MD - 04/20/2013 9:45 AM PDT Discharge [place] [address] Author: Bang Mast MD Service: (none) Author Type: Physician Filed: 04/20/13 1017 Date of Service: 04/20/13944 Status: Signed Furnace Mechanic Helper: Bang Mast MD (Physician) [facility] Service: Hospitalist Physician Discharge Summary [...] not on long-term anticoagulation with Coumadin. Clairea melva delayed and lives in a senior care. The patient presented to the ED with [...] with ACS The patient underwent rule out [place] protocol with negative cardiac biomarkers.All sets of [...] CHOLECYSTECTOMY; Surgeon: Jevon Vargas DO; Location: [facility] MAIN OR; Service: General; Laterality: N/A; Abdominal surgery Cholecystectomy Skin cancer excision 10/10/2012 Procedure: EXCISION - SKIN CANCER; Surgeon: Sy Fierro MD; Location: [facility] MAIN OR ; Service: Plastics; Laterality: Left; upper arm and upper back w/frozen section Esophagogastroduodenoscopy 03/03/2013 Procedure: ESOPHAGOGASTRODUODENOSCOPY; Surgeon: Howie Gibson MD; Location: [facility] ENDOSCOPY; S ervice: Gastroenterology; Laterality: N/A; Colonoscopy 03/04/2013 Procedure: COLONOSCOPY; Surgeon: Howie Gibson MD; Location: [facility] ENDOSCOPY; Service: Gastroe nterology; Laterality: [...] Perfusion Spect (stress And Rest) 04/19/2013 NORAH Emre GR NM MYOCARDIAL PERFUSION SPECT - STRESS [...] similar- prior study for comparison. FINDINGS: The fibre technologist is unremarkable. Lung wind ows demonstrate no [...] Treadmill 04/19/2013 This procedure was resulted in [place] (the cardiology system). Please see the Med [...] hours No results found for this basename: PHART:3,PO2ART:3,VJI9KJI:3,Y7YPXHYC:3,BEART:[address] 168 hours Lab [...] is noncompliant with his CPAP at the [facility]. DISPOSITION The patient Be return to senior care living situation today Disposition: senior care Follow up: F/ up PCP 1 week [...] 04/20/13128 Date of Service: 04/20/13124 Status: Signed Furnace Mechanic Helper: Taurus Mueller RN (Registered Nurse) Contacted [place] regarding transport of patient back to their facility. Nurse stated ca nnot take patient until MondayApril 20 after 10:00 am. Transport will have to be either d ial-a-ride or taxi and facility will need discharge packet with doctor signature faxed to [phone] before receiving patient. Facility phone number is [phone]. Taurus Mueller RN Kristian Vidal MD - 04/19/2013 10:13 PM PDTFormatting of this note might be different from th e original. Progress Notes by Kristian Meadows MD at 04/19/132212 Author: Kristian Meadows MD Service: (none) Author Type: Physician Filed: 04/19/13 7363 Date of Service: 04/19/132212 Status: Signed Furnace Mechanic Helper: Kristian Meadows MD (Physician) Related Notes: Original Note by Kristian Meadows MD (Physician) filed at 04/19/132221 [facility] Service: Hospitalist Progress Note Pt: Norah Gr AGE/SEX: 57 y.o. male : 1955 ROOM: 1132/1132-1 TODAY'S DATE: 04/19/2013 Hospital Day: LOS: 1 day SUBJECTIVEThe patient underwent rule out [place] protocol with negative cardiac biomarkers. He s [...] patient to be transported back to his senior care where he resides. We contacted the [facility] facili ty however they were unable to [...] 149 No results found for this basename: PHART:3,PO2ART:3,NUK9NAV:3,V7UWRGTW:3,BEART:[address] 168 hours Lab [...] similar- prior study for comparison. FINDINGS: The fibre technologist is unremarkable. Lung wind ows demonstrate no [...] Treadmill 04/19/2013 This procedure was resulted in [place] (the cardiology system). Please see the Med [...] CHOLECYSTECTOMY; Surgeon: Jevon Vargas DO; Location: [facility] MAIN OR; Service: General; Laterality: N/A; Abdominal surgery Cholecystectomy Skin cancer excision 10/10/2012 Procedure: EXCISION - SKIN CANCER; Surgeon: Sy Fierro MD; Location: [facility] MAIN OR ; Service: Plastics; Laterality: Left; upper arm and upper back w/frozen section Esophagogastroduodenoscopy 03/03/2013 Procedure: ESOPHAGOGASTRODUODENOSCOPY; Surgeon: Howie Gibson MD; Location: [facility] ENDOSCOPY; S ervice: Gastroenterology; Laterality: N/A; Colonoscopy 03/04/2013 Procedure: COLONOSCOPY; Surgeon: Howie Gibson MD; Location: [facility] ENDOSCOPY; Service: Gastroe nterology; Laterality: [...] is noncompliant with his CPAP at the senior care. He is likely not to benefit from CPAP therapy unless he accepts treatment volunt arily. 7. DVT prophylaxis. SCDs and subcutaneous heparin 5000 units q.8h. (will change to q.12h.) DISPOSITION The patient may return to senior care living situation tomorrow April 20, 2013, once our nicholas e management will verify that the facility can accept Mr. Gr. Case management consult has been placed. Kristian Meadows MD 04/19/2013 10:13 PM onversion Chin ledesma, Provider Unknown - 04/19/2013 2:47 PM PDT Progress Notes by QUINN Pepper at 04/19/13 0257 Author: QUINN Pepper Service: (none) Author Type: Car Stereo Installer Filed: 04/19/13 4352 Date of Service: 04/19/13 0121 Status: Signed Furnace Mechanic Helper: QUINN Pepper (Car Stereo Installer) 04/19/13 7715 Discharge Planning Evaluation Admitting Diagnosis chest pain Readmission No Living Arrangements Alone Support Systems Family members;Children Type of Residence Assisted living ([facility]) Independent with ADL's Yes Independent with Mobility Yes Home Care Services No Caregiver after Discharge No Mental Status Oriented Prior functional status Independent Power of Emt Driver No Anticipated Discharge Plan Post Acute Care Needs None at this time Plan communicated to patient/family Yes Resources Financial concerns No Transportation issues No (Taxi / Medicaid) Patient/Family concerns No Prescription Plan Yes Name of Pharmacy [facility] Previous home health equipment No Vascular access device No Ostomy/Drains/Appliances No Met with: pt and discussed discharge planning, Pt is a 57 y.o., male who states that he lives at [facility], and he plans to return there via Taxi paid by [employer]. Patient's PCP is: TAINA WASHBURN Patient's insurance:Medicare/ Medicaid Coverage concerns: None Medication coverage/concerns: None Community resources utilized / needed: None Assistance in transportation: Pt would like to transport via Taxi and have Medicaid pay for it. Identification of any specific education / training: None Barriers to Discharge / Alternative housing needed: None Anticipated DCP: pt will transport via Medicaid Taxi back to [facility] ANGELA LUBIN onver ivana Transaction, Provider Unknown - 04/19/2013 4:44 AM PDT Progress Notes by Pepe Xie [facility] at 03/443 Author: Pepe Xie RPH Service: (none) Author Type: Pharmacist Filed: 04/19/13443 Date of Service: 04/19/13443 Status: Signed Furnace Mechanic Helper: Pepe Xie RPH (Pharmacist) pom requested rdc 443 onver ivana Transaction, Provider Unknown - 04/18/2013 10:03 PM PDT Progress Notes by Pepe Xie RPH at 04/18/132202 Author: Pepe Xie RPH Service: (none) Author Type: Pharmacist Filed: 04/18/132202 Date of Service: 04/18/132202 Status: Signed Furnace Mechanic Helper: Pepe Xie RPH (Pharmacist) Note ccl 88.9ml/min meds reviewed pharmacy will follow rdc 2202 docume nted in this encounter H&P Notes Elizabeth Ochoa - 04/18/2013 7:34 PM PDTFormatting of this note might be different from th e original. H&P by Elizabeth Ochoa MD at 04/18/131933 Author: Elizabeth Ochoa MD Service: (none) Author Type: Physician Filed: 04/20/132205 Date of Service: 04/18/131933 Status: Signed Furnace Mechanic Helper: Elizabeth Ochoa MD (Physician) [facility] Service: Hospitalist Admission History & Physical Date of Admission: 04/18/2013 Requesting Physician: Jonny Gr, Emergency Department Reason for Admission: Chest pain , r/o acs History Obtained From: patient, chart review, Quality of history: good CHIEF COMPLAINT: Chief Complaint Chief Complaint Patient presents with Chest Pain x 3 hrs CREDIT ADVISOR HISTORY OF PRESENT ILLNESS The patient is [...] and hemoptysis. CARDIOVASCULAR: No prior history of [place], congestive heart failure, or syncope. History of [...] CHOLECYSTECTOMY; Surgeon: Jevon Vargas DO; Location: [facility] MAIN OR; Service: General; Laterality: N/A; Abdominal surgery Cholecystectomy Skin cancer excision 10/10/2012 Procedure: EXCISION - SKIN CANCER; Surgeon: Sy Fierro MD; Location: [facility] MAIN OR ; Service: Plastics; Laterality: Left; upper arm and upper back w/frozen section Esophagogastroduodenoscopy 03/03/2013 Procedure: ESOPHAGOGASTRODUODENOSCOPY; Surgeon: Howie Gibson MD; Location: [facility] ENDOSCOPY; S ervice: Gastroenterology; Laterality: N/A; Colonoscopy 03/04/2013 Procedure: COLONOSCOPY; Surgeon: Howie Gibson MD; Location: [facility] ENDOSCOPY; Service: Gastroe nterology; Laterality: [...] Lives in senior care, IADL, full code History Smoking status Never [...] 472 QTC Calculation (Bezet) 459 Calculated P [place] 42 Calculated R [place] 40 Calculated T [place] 54 Diagnosis Value: Sinus bradycardia Otherwise normal ECG When compared with ECG of 09-APR-2013 20:13, No significant change was found This ECG contains Unconfirmed Interpretation Statements. See ED Record for Physician In terpretation. Confirmed by MUSE READ ONLY, -COMPUTER (500), newspaper copy editor LIZETTE WATERMAN (2) on 04/18/2013 6:31 :19 [...] chest pulmonary embolism with contrast FINDINGS: The fibre technologist is unremarkable. Lung windows demonstrate no infiltrate, [...] in this encou nter Procedure Notes Deejay Tai NP - 04/19/2013 1:23 PM PDT Procedures by CITLALY Garcia at 04/19/13 1323 Author: CITLALY Garcia Service: (none) Author Type: Advanced Registered Nurse Pr actitioner Filed: 04/19/13 1324 Date of Service: 04/19/13 1323 Status: Signed Furnace Mechanic Helper: CITLALY Garcia (Advanced Registered Nurse Ricky) Pre-procedure Diagnoses: 1. Chest pain [786.50] Post-procedure Diagnoses: 1. Chest pain [786.50] Procedures: 1. NM MYOCARDIAL PERFUSION SPECT - STRESS AND REST [MML250 (Custom)] [facility] Service: Diagnostic Imaging/Nuclear Medicine Cardiac Stress [...] 04/18/131747 Date of Service: 04/18/131746 Status: Signed Furnace Mechanic Helper: Carlos Morfin RN (Registered Nurse) Pt had 325mg aspirin from EMS Carlos Morfin RN 04/18/131747 onny Gr PA-C - 04/18/2013 5:38 PM PDTFormatting of this note might be different from the orig inal. ED Provider Notes by Jonny Gr PA-C at 04/18/131737 Author: Jonny Gr PA-C Service: (none) Author Type: Physician Crop Or Livestock Tenant Farmer - Certified Filed: 04/18/13 2230 Date of Service: 04/18/131737 Status: Signed Furnace Mechanic Helper: Jonny Gr PA-C (Physician Crop Or Livestock Tenant Farmer - Certified) Related Notes: Cosigned by Yaakov Bridges DO (Physician) filed at 04/21/13 8788 Procedures [facility] Department of Emergency Medicine History of Present Illness Patient Identification Norah Gr is a 57 y.o. male. Patient information was obtained from patient. History/Exam limitations: none. Patient presented to the Emergency Department by: [facility] 1723 Chief Complaint Chief Complaint Patient [...] CHOLECYSTECTOMY; Surgeon: Jevon Vargas DO; Location: [facility] MAIN OR; Service: General; Laterality: N/A; Abdominal surgery Cholecystectomy Skin cancer excision 10/10/2012 Procedure: EXCISION - SKIN CANCER; Surgeon: Sy Fierro MD; Location: [facility] MA[facility] OR ; Service: Plastics; Laterality: Left; upper arm and upper back w/frozen section Esophagogastroduodenoscopy 03/03/2013 Procedure: ESOPHAGOGASTRODUODENOSCOPY; Surgeon: Howie Gibson MD; Location: [facility] ENDOSCOPY; S ervice: Gastroenterology; Laterality: N/A; Colonoscopy 03/04/2013 Procedure: COLONOSCOPY; Surgeon: Howie Gibson MD; Location: [facility] ENDOSCOPY; Service: Gastroe nterology; Laterality: [...] have discussed a di fferential of acute [place], NSTEMI, and pleural effusion. I have discussed [...] Component Value Ref Range Date/Time Cardiac Panel [[id number]] (Abnormal) Collected:04/18/13 1718 Order Status:Completed Updated:04/18/135 WBC 10.4 3.8 - 11.0 K/uL RBC [...] ng/mL CK-MB Index 2.8 POC cardiac troponin [[id number]] Collected:04/18/131718 Order Status:Completed Updated:04/18/131732 POC CARDIAC TROPONIN 0.00 0.00 - 0.10 [...] EKG Interpretation Rhythm: Sinus Ventricular Rate: 57 HI Interval: Normal ST Segments: Normal Significant Q-waves: None Blocks: None [place]: Normal axis Additional Comments: None ED Diagnoses [...] by Yaakov Bridges DO at 04/18/131737 Author: Yaaokv Bridges DO Service: (none) Author Type: Physician Filed: 04/21/137 Date of Service: 04/18/131737 Status: Signed Furnace Mechanic Helper: Yaakov Bridges DO (Physician) Related Notes: Related Note by Jonny Gr PA-C (Physician Crop Or Livestock Tenant Farmer - Certified) filed at 04/18/132229 I was personally available for consultation. We have discussed the case and I was involved in the medical decision making process. I have reviewed the charting and agree with the as sessment, treatment plan, and disposition of the patient as recorded by the MLP. Yaakov Bridges DO 04/21/132357 onversion Transactlenin sanchez, Provider Unknown - 04/18/2013 5:21 PM PDT ED Notes by Carlos Morfin RN at 04/18/131720 Author: Carlos Morfin RN Service: (none) Author Type: Registered Nurse Filed: 04/18/131720 Date of Service: 04/18/131720 Status: Signed Furnace Mechanic Helper: Carlos Morfin RN (Registered Nurse) 2 patient [...] [place], | | | | | | [place] [address] | | | | | | [phone] | | | | | | | | +--------+---------+ + + + | 09/29/ | Office | Urology | Mireya Pack, | | | 2019 | Visit | | PATHOLOGY MANAGER [address] | | | | | | [address] [place], | | | | | | [place] [address] | | | | | | [phone] | | | | | | | | | | | | [place], | | | | | | [address] | | | | | | [place] [address] | | | | | | [phone] | | | | | | | [...] | LAB | | | | [address];[place], [place] | | | | | | [address] | | | | + + + + + + + + | Specimen | + + | | + + + +---------+ + + | Performing | Address | City/State/Zipcode | Phone Number | | Organization | | | | + +---------+ + + | EXTERNAL LAB | | | | + +---------+ + + External Lab: [facility] (04/20/2013 5:26 AM PDT) + + + [...] | | | | | [place] [address] | | | | + + + + + + | Non- | 4.95Comment: Testing | 4.20 - 5.70 | EXTERNAL | | | Red Blood | performed at [facility], [address] | M/uL | LAB | | | Cells | [address], | | | | | Counted | [place] [address] | | | | + + + + + + | Hemoglobin | 13.3Comment: Testing | 13.2 - 17.0 | EXTERNAL | | | | performed at [facility], [address] | g/dL | LAB | | | | [address], | | | | | | [place] [address] | | | | + + + + + + | Hematocrit, | 40.4Comment: Testing | 39.0 - 50.0 % | EXTERNAL | | | POC | performed at [facility], [address] | | LAB | | | | [address], | | | | | | [place] [address] | | | | + + + + + + | MCV | 81.6Comment: Testing | 80.0 - 100.0 fl | EXTERNAL | | | | performed at [facility], [address] | | LAB | | | | [address], | | | | | | [place] [address] | | | | + + + + + + | MCH | 26.8 (L)Comment: Testing | 27.0 - 34.0 pg | EXTERNAL | | | | performed at [facility], [address] | | LAB | | | | [address], | | | | | | [place] [address] | | | | + + + + + + | MCHC | 32.9Comment: Testing | 32.0 - 35.5 | EXTERNAL | | | | performed at [facility], [address] | g/dL | LAB | | | | [address], | | | | | | [place] [address] | | | | + + + + + + | RDW-CV | 40.7Comment: Testing | 37 - 53 fl | EXTERNAL | | | | performed at [facility], [address] | | LAB | | | | [address], | | | | | | [place] [address] | | | | + + + + + + | Platelet | 265Comment: Testing | 150 - 400 K/uL | EXTERNAL | | | Count | performed at [facility], [address] | | LAB | | | Plasma | [address], | | | | | | [place] [address] | | | | + + + + + + | MPV | 7.7Comment: Testing | fl | EXTERNAL | | | | performed at [facility], [address] | | LAB | | | | [address], | | | | | | [place] [address] | | | | + + + + + + | Differentia | AUTOMATEDComment: | | EXTERNAL | | | l Type | Testing performed at | | LAB | | | | [facility], [address] | | | | | | [place] | | | | | | [address] | | | | + + + + + + | % Segmented | 66.2Comment: Testing | % | EXTERNAL | | | | performed at [facility], [address] | | LAB | | | Neutrophils | [address], | | | | | | [place] [address] | | | | + + + + + + | % | 22.8Comment: Testing | % | EXTERNAL | | | Lymphocytes | performed at [facility], [address] | | LAB | | | | [address], | | | | | | [place] [address] | | | | + + + + + + | % Monocytes | 7.8Comment: Testing | % | EXTERNAL | | | | performed at [facility], [address] | | LAB | | | | [address], | | | | | | [place] [address] | | | | + + + + + + | % | 2.8Comment: Testing | % | EXTERNAL | | | Eosinophils | performed at [facility], [address] | | LAB | | | | [address], | | | | | | [place] [address] | | | | + + + + + + | % Basophils | 0.4Comment: Testing | % | EXTERNAL | | | | performed at [facility], [address] | | LAB | | | | [address], | | | | | | [place], [place] [address] | | | | + + + + + + | Absolute | 7.1Comment: Testing | 1.9 - 7.4 K/uL | EXTERNAL | | | Segmented | performed at [facility], [address] | | LAB | | | Neutrophils | [address], | | | | | | [place], [place] [address] | | | | + + + + + + | Absolute | 2.4Comment: Testing | 1.0 - 3.9 K/uL | EXTERNAL | | | Lymphocytes | performed at [facility], [address] | | LAB | | | | [address], | | | | | | [place] [address] | | | | + + + + + + | Absolute | 0.8Comment: Testing | 0 - 0.8 K/uL | EXTERNAL | | | Monocytes | performed at [facility], [address] | | LAB | | | | [address], | | | | | | [place] [address] | | | | + + + + + + | Absolute | 0.3Comment: Testing | 0 - 0.5 K/uL | EXTERNAL | | | Eosinophils | performed at [facility], [address] | | LAB | | | | [address], | | | | | | [place] [address] | | | | + + + + + + | Absolute | 0.0Comment: Testing | 0 - 0.1 K/uL | EXTERNAL | | | Basophils | performed at [facility], [address] | | LAB | | | | [address], | | | | | | [place] [address] | | | | + + + + + + | RBC | Comment: 1+ | | EXTERNAL | | | Morphology | HypochromiaTesting | | LAB | | | | performed at [facility], [address] | | | | | | [address], | | | | | | [place] [address] | | | | + + + [...] EXTERNAL | | | | performed at [facility], [address] | | LAB | | | | [address], | | | | | | [place] [address] | | | | + + + [...] EXTERNAL | | | | performed at [facility], [address] | | LAB | | | | [facility], | | | | | | [place] [address] | | | | + + + [...] EXTERNAL | | | | performed at [facility], [address] | mmol/L | LAB | | | | [address], | | | | | | [place] [address] | | | | + + + + + + | K | 3.6Comment: Testing | 3.5 - 4.9 | EXTERNAL | | | | performed at [facility], [address] | mmol/L | LAB | | | | [address], | | | | | | [place] [address] | | | | + + + + + + | Cl | 104Comment: Testing | 99 - 109 mmol/L | EXTERNAL | | | | performed at [facility], [address] | | LAB | | | | [address], | | | | | | [place] [address] | | | | + + + + + + | CO2 | 28Comment: Testing | 23 - 32 mmol/L | EXTERNAL | | | | performed at [facility], [address] | | LAB | | | | [address], | | | | | | [place] [address] | | | | + + + + + + | Anion Gap | 10Comment: Testing | 5 - 20 mmol/L | EXTERNAL | | | | performed at [facility], [address] | | LAB | | | | [address], | | | | | | [place], [place] [address] | | | | + + + + + + | Glucose, | 172 (H)Comment: Testing | 65 - 99 mg/dL | EXTERNAL | | | Fasting | performed at [facility], [address] | | LAB | | | | [address], | | | | | | [place] [address] | | | | + + + + + + | BUN | 16Comment: Testing | 8 - 25 mg/dL | EXTERNAL | | | | performed at [facility], [address] | | LAB | | | | [address], | | | | | | [place] [address] | | | | + + + + + + | Creatinine | 1.00Comment: Testing | 0.70 - 1.30 | EXTERNAL | | | | performed at [facility], [address] | mg/dL | LAB | | | | [address], | | | | | | [place] [address] | | | | + + + [...] | | | | | [place] [address] | | | | + + + + + + | Protein, | 7.0Comment: Testing | 6.3 - 8.2 g/dL | EXTERNAL | | | Total | performed at [facility], [address] | | LAB | | | | [address], | | | | | | [place] [address] | | | | + + + + + + | Albumin | 3.6Comment: Testing | 3.6 - 5.0 g/dL | EXTERNAL | | | | performed at [facility], [address] | | LAB | | | | [address], | | | | | | [place] [address] | | | | + + + + + + | Globulin | 3.4Comment: Testing | 1.3 - 4.9 g/dL | EXTERNAL | | | | performed at [facility], [address] | | LAB | | | | [address], | | | | | | [place] [address] | | | | + + + + + + | A/G Ratio | 1.1Comment: Testing | 1.0 - 2.4 | EXTERNAL | | | | performed at [facility], [address] | | LAB | | | | [address], | | | | | | [place] [address] | | | | + + + + + + | Bilirubin | 0.3Comment: Testing | 0.1 - 1.5 mg/dL | EXTERNAL | | | Total | performed at [facility], [address] | | LAB | | | | [address], | | | | | | [place] [address] | | | | + + + + + + | ALP, | 69Comment: Testing | 35 - 115 U/L | EXTERNAL | | | External | performed at [facility], [address] | | LAB | | | | [address], | | | | | | [place] [address] | | | | + + + + + + | AST | 14Comment: Testing | 10 - 45 U/L | EXTERNAL | | | | performed at [facility], [address] | | LAB | | | | [address], | | | | | | [place] [address] | | | | + + + + + + | ALT | 11Comment: Testing | 10 - 65 U/L | EXTERNAL | | | | performed at [facility], [address] | | LAB | | | | [address], | | | | | | [place] [address] | | | | + + + [...] | | | | | | at [facility], [address] | | | | | | [address], | | | | | | [place] [address] | | | | + + [...] | LAB | | | | [address];[place] | | | | | | [address] | | | | + + + [...] | EXTERNAL LAB | | performed at [facility];[address] [facility];[place] [address] | | + + + + +---------+ [...] | LAB | | | | [address];[place] | | | | | | [address] | | | | + + + [...] Vick | | | | | | [address] | | | | + + + [...] Conversion - 09/21/2018 3:31 PM PDT NORAH TOBIN MYOCARDIAL PERFUSION | | SPECT - [...] | LAB | | | | [address];[place], [place] | | | | | | [address] | | | | + + + [...] [place] | | | | | | [address] | | | | + + + [...] | LAB | | | | [address];[place], [place] | | | | | | [address] | | | | + + + [...] | | | | | | ACUTE [place] Testing | | | | | | performed at [facility];[address] | | | | | | [address];[place], [place] | | | | | | [address] | | | | + + + [...] | | | | | [place] [address] | | | | + + + + + + | Non- | 4.87Comment: Testing | 4.20 - 5.70 | EXTERNAL | | | Red Blood | performed at [facility], [address] | M/uL | LAB | | | Cells | [address], | | | | | Counted | [place] [address] | | | | + + + + + + | Hemoglobin | 13.4Comment: Testing | 13.2 - 17.0 | EXTERNAL | | | | performed at [facility], [address] | g/dL | LAB | | | | [address], | | | | | | [place] [address] | | | | + + + + + + | Hematocrit, | 40.3Comment: Testing | 39.0 - 50.0 % | EXTERNAL | | | POC | performed at [facility], [address] | | LAB | | | | [address], | | | | | | [place] [address] | | | | + + + + + + | MCV | 82.7Comment: Testing | 80.0 - 100.0 fl | EXTERNAL | | | | performed at [facility], [address] | | LAB | | | | [address], | | | | | | [place] [address] | | | | + + + + + + | MCH | 27.6Comment: Testing | 27.0 - 34.0 pg | EXTERNAL | | | | performed at [facility], [address] | | LAB | | | | [address], | | | | | | [place] [address] | | | | + + + + + + | MCHC | 33.3Comment: Testing | 32.0 - 35.5 | EXTERNAL | | | | performed at [facility], [address] | g/dL | LAB | | | | [address], | | | | | | [place], [place] [address] | | | | + + + + + + | RDW-CV | 41.1Comment: Testing | 37 - 53 fl | EXTERNAL | | | | performed at [facility], [address] | | LAB | | | | [address], | | | | | | [place] [address] | | | | + + + + + + | Platelet | 264Comment: Testing | 150 - 400 K/uL | EXTERNAL | | | Count | performed at [facility], [address] | | LAB | | | Plasma | [address], | | | | | | [place] [address] | | | | + + + + + + | MPV | 7.7Comment: Testing | fl | EXTERNAL | | | | performed at [facility], [address] | | LAB | | | | [address], | | | | | | [place] [address] | | | | + + + + + + | Differentia | AUTOMATEDComment: | | EXTERNAL | | | l Type | Testing performed at | | LAB | | | | [facility], [address] | | | | | | [place] | | | | | | [address] | | | | + + + + + + | % Segmented | 59.4Comment: Testing | % | EXTERNAL | | | | performed at [facility], [address] | | LAB | | | Neutrophils | [address], | | | | | | [place] [address] | | | | + + + + + + | % | 28.2Comment: Testing | % | EXTERNAL | | | Lymphocytes | performed at [facility], [address] | | LAB | | | | [address], | | | | | | [place] [address] | | | | + + + + + + | % Monocytes | 8.9Comment: Testing | % | EXTERNAL | | | | performed at [facility], [address] | | LAB | | | | [address], | | | | | | [place] [address] | | | | + + + + + + | % | 3.1Comment: Testing | % | EXTERNAL | | | Eosinophils | performed at [facility], [address] | | LAB | | | | [address], | | | | | | [place] [address] | | | | + + + + + + | % Basophils | 0.4Comment: Testing | % | EXTERNAL | | | | performed at [facility], [address] | | LAB | | | | [address], | | | | | | [place] [address] | | | | + + + + + + | Absolute | 5.7Comment: Testing | 1.9 - 7.4 K/uL | EXTERNAL | | | Segmented | performed at [facility], [address] | | LAB | | | Neutrophils | [address], | | | | | | [place] [address] | | | | + + + + + + | Absolute | 2.7Comment: Testing | 1.0 - 3.9 K/uL | EXTERNAL | | | Lymphocytes | performed at [facility], [address] | | LAB | | | | [address], | | | | | | [place] [address] | | | | + + + + + + | Absolute | 0.9 (H)Comment: Testing | 0 - 0.8 K/uL | EXTERNAL | | | Monocytes | performed at [facility], [address] | | LAB | | | | [address], | | | | | | [place], [place] [address] | | | | + + + + + + | Absolute | 0.3Comment: Testing | 0 - 0.5 K/uL | EXTERNAL | | | Eosinophils | performed at [facility], [address] | | LAB | | | | [address], | | | | | | [place] [address] | | | | + + + + + + | Absolute | 0.0Comment: Testing | 0 - 0.1 K/uL | EXTERNAL | | | Basophils | performed at [facility], [address] | | LAB | | | | [address], | | | | | | [place] [address] | | | | + + + + + + | RBC | Comment: 1+ | | EXTERNAL | | | Morphology | HypochromiaTesting | | LAB | | | | performed at [facility], [address] | | | | | | [address], | | | | | | [place] [address] | | | | + + + [...] | | | | | [place] [address] | | | | + + + [...] | LAB | | | | [address];[place], [place] | | | | | | [address] [...] | | | | | [place] [address] | | | | + + + + + + | Triglycerid | 265 (H)Comment: Testing | mg/dL | EXTERNAL | | | es | performed at [facility], [address] | | LAB | | | | [address], | | | | | | [place] [address] | | | | + + + + + + | HDL | 23 (L)Comment: Testing | mg/dL | EXTERNAL | | | | performed at [facility], [address] | | LAB | | | | [address], | | | | | | [place] [address] | | | | + + + + + + | LDL, | 53Comment: Testing | mg/dL | EXTERNAL | | | Calculated | performed at [facility], [address] | | LAB | | | | [address], | | | | | | [place] [address] | | | | + + + [...] | | | | | [place] [address] | | | | + + + + + + | K | 3.7Comment: Testing | 3.5 - 4.9 | EXTERNAL | | | | performed at [facility], [address] | mmol/L | LAB | | | | [address], | | | | | | [place] [address] | | | | + + + + + + | Cl | 103Comment: Testing | 99 - 109 mmol/L | EXTERNAL | | | | performed at [facility], [address] | | LAB | | | | [address], | | | | | | [place] [address] | | | | + + + + + + | CO2 | 29Comment: Testing | 23 - 32 mmol/L | EXTERNAL | | | | performed at [facility], [address] | | LAB | | | | [address], | | | | | | [place] [address] | | | | + + + + + + | Anion Gap | 10Comment: Testing | 5 - 20 mmol/L | EXTERNAL | | | | performed at [facility], [address] | | LAB | | | | [address], | | | | | | [place] [address] | | | | + + + + + + | Glucose, | 209 (H)Comment: Testing | 65 - 99 mg/dL | EXTERNAL | | | Fasting | performed at [facility], [address] | | LAB | | | | [address], | | | | | | [place] [address] | | | | + + + + + + | BUN | 16Comment: Testing | 8 - 25 mg/dL | EXTERNAL | | | | performed at [facility], [address] | | LAB | | | | [address], | | | | | | [place] [address] | | | | + + + + + + | Creatinine | 1.00Comment: Testing | 0.70 - 1.30 | EXTERNAL | | | | performed at [facility], [address] | mg/dL | LAB | | | | [address], | | | | | | [place] [address] | | | | + + + + + + | BUN/Creatin | 16Comment: Testing | | EXTERNAL | | | ine Ratio | performed at [facility], [address] | | LAB | | | | [address], | | | | | | [place] [address] | | | | + + + + + + | Calcium | 9.0Comment: Testing | 8.5 - 10.2 | EXTERNAL | | | | performed at [facility], [address] | mg/dL | LAB | | | | [address], | | | | | | [place] [address] | | | | + + + + + + | Protein, | 7.0Comment: Testing | 6.3 - 8.2 g/dL | EXTERNAL | | | Total | performed at [facility], [address] | | LAB | | | | [address], | | | | | | [place] [address] | | | | + + + + + + | Albumin | 3.6Comment: Testing | 3.6 - 5.0 g/dL | EXTERNAL | | | | performed at [facility], [address] | | LAB | | | | [address], | | | | | | [place] [address] | | | | + + + + + + | Globulin | 3.4Comment: Testing | 1.3 - 4.9 g/dL | EXTERNAL | | | | performed at [facility], [address] | | LAB | | | | [address], | | | | | | [place] [address] | | | | + + + + + + | A/G Ratio | 1.1Comment: Testing | 1.0 - 2.4 | EXTERNAL | | | | performed at [facility], [address] | | LAB | | | | [address], | | | | | | [place] [address] | | | | + + + + + + | Bilirubin | 0.3Comment: Testing | 0.1 - 1.5 mg/dL | EXTERNAL | | | Total | performed at [facility], [address] | | LAB | | | | [address], | | | | | | [place] [address] | | | | + + + + + + | ALP, | 74Comment: Testing | 35 - 115 U/L | EXTERNAL | | | External | performed at [facility], [address] | | LAB | | | | [address], | | | | | | [place] [address] | | | | + + + + + + | AST | 16Comment: Testing | 10 - 45 U/L | EXTERNAL | | | | performed at [facility], [address] | | LAB | | | | [address], | | | | | | [place] [address] | | | | + + + + + + | ALT | 13Comment: Testing | 10 - 65 U/L | EXTERNAL | | | | performed at [facility], [address] | | LAB | | | | [address], | | | | | | [place] [address] | | | | + + [...] [address], | | | | | | [place] [address] | | | | + + + [...] | LAB | | | | [address];[place], [place] | | | | | | [address] | | | | + + + [...] | | | | | | ACUTE [place] Testing | | | | | | performed at [facility] | | | | | | [address];[place], [place] | | | | | | [address] | | | | + + + [...] | LAB | | | | [facility];[place], [place] | | | | | | [address] | | | | + + + [...] performed at [facility] | | LAB | | | | [address];[place] | | | | | | [address] | | | | + + + [...] | | | | | | [place] [address] | | | | + + + + + + | Clarity, | CLEARComment: Testing | | EXTERNAL | | | Urine | performed at [facility], [address] | | LAB | | | | [address], | | | | | | [place] [address] | | | | + + + + + + | Specific | 1.026Comment: Testing | 1.002 - 1.030 | EXTERNAL | | | [place], | performed at [facility], [address] | | LAB | | | Urine | [address], | | | | | | [place] [address] | | | | + + + + + + | Leukocyte | NEGATIVEComment: Testing | | EXTERNAL | | | Esterase, | performed at [facility], [address] | | LAB | | | [address]rine | [address], | | | | | | [place] [address] | | | | + + + + + + | Nitrite, | NEGATIVEComment: Testing | | EXTERNAL | | | Urine | performed at [facility], [address] | | LAB | | | | [address], | | | | | | [place] [address] | | | | + + + + + + | Urobilinoge | 1.0Comment: Testing | mg/dL | EXTERNAL | | | n, Urine | performed at [facility], [address] | | LAB | | | | [address], | | | | | | [place] [address] | | | | + + + + + + | Protein, | NEGATIVEComment: Testing | mg/dL | EXTERNAL | | | Urine | performed at [facility], [address] | | LAB | | | | [address], | | | | | | [place] [address] | | | | + + + + + + | pH, Urine | 6.0Comment: Testing | 5.0 - 8.0 | EXTERNAL | | | | performed at [facility], [address] | | LAB | | | | [address], | | | | | | [place] [address] | | | | + + + + + + | Blood, | NEGATIVEComment: Testing | | EXTERNAL | | | Urine | performed at [facility], [address] | | LAB | | | | [address], | | | | | | [place] [address] | | | | + + + + + + | Ketones | NEGATIVEComment: Testing | mg/dL | EXTERNAL | | | | performed at [facility], [address] | | LAB | | | | [address], | | | | | | [place] [address] | | | | + + + + + + | Bilirubin, | NEGATIVEComment: Testing | | EXTERNAL | | | Urine | performed at [facility], [address] | | LAB | | | | [address], | | | | | | [place] [address] | | | | + + + + + + | Glucose, | 100 (A)Comment: Testing | mg/dL | EXTERNAL | | | Urine | performed at [facility], [address] | | LAB | | | | [address], | | | | | | [place] [address] | | | | + + + [...] similar- prior study for comparison. FINDINGS: The fibre technologist is | | | unremarkable. Lung windows [...] study | | for comparison. FINDINGS: The fibre technologist is unremarkable. Lung windows demonstrate no | [...] | | | | | ONLY, -COMPUTER (427), | | | | | | newspaper copy editor LIZETTE WATERMAN (2) | | | | | | on 04/18/2013 6:31:19 PM | | | | | | | | | | + + + + + + + + | Specimen | + + | | + + + + + | Narrative | Performed At | + + + | [facility] | EXTERNAL LAB | + + [...] performed at [facility] | | LAB | | | | [address];[place] | | | | | | [address] | | | | + + + + + -+ | Non- | 5.11Comment: Testing | 4.20 - 5.70 | EXTERNAL | | | Red Blood | performed at [facility];[address] | M/uL | LAB | | | Cells | [address];[place] | | | | | Counted | [address] | | | | + + + + + -+ | Hemoglobin | 13.9Comment: Testing | 13.2 - 17.0 | EXTERNAL | | | | performed at [facility];[address] | g/dL | LAB | | | | [address];[place] | | | | | | [address] | | | | + + + + + -+ | Hematocrit, | 42.1Comment: Testing | 39.0 - 50.0 % | EXTERNAL | | | POC | performed at [facility];[address] | | LAB | | | | [address];[place] | | | | | | [address] | | | | + + + + + -+ | MCV | 82.4Comment: Testing | 80.0 - 100.0 fl | EXTERNAL | | | | performed at [facility];[address] | | LAB | | | | [address];[place] | | | | | | [address] | | | | + + + + + -+ | MCH | 27.2Comment: Testing | 27.0 - 34.0 pg | EXTERNAL | | | | performed at [facility];[address] | | LAB | | | | [address];[place] | | | | | | [address] | | | | + + + + + -+ | MCHC | 33.0Comment: Testing | 32.0 - 35.5 | EXTERNAL | | | | performed at [facility];[address] | g/dL | LAB | | | | [address];[place] | | | | | | [address] | | | | + + + + + -+ | RDW-CV | 41.1Comment: Testing | 37 - 53 fl | EXTERNAL | | | | performed at [facility];[address] | | LAB | | | | [address];[place] | | | | | | [address] | | | | + + + + + -+ | Platelet | 322Comment: Testing | 150 - 400 K/uL | EXTERNAL | | | Count | performed at [facility];[address] | | LAB | | | Plasma | [address];[place] | | | | | | [address] | | | | + + + + + -+ | MPV | 7.0Comment: Testing | fl | EXTERNAL | | | | performed at [facility];[address] | | LAB | | | | [address];[place] | | | | | | [address] | | | | + + + + + -+ | Differentia | AUTOMATEDComment: | | EXTERNAL | | | l Type | Testing performed at | | LAB | | | | [facility];[address] | [address];[place] [address] | | | | + + + + + -+ | % Segmented | 61.3Comment: Testing | % | EXTERNAL | | | | performed at [facility];[address] | | LAB | | | Neutrophils | [address];[place] | | | | | | [address] | | | | + + + [...] [place] | | | | | | [address] | | | | + + + + + -+ | % | 3.5Comment: Testing | % | EXTERNAL | | | Eosinophils | performed at [facility];[address] | | LAB | | | | [address];[place] | | | | | | [address] | | | | + + + + + -+ | % Basophils | 0.9Comment: Testing | % | EXTERNAL | | | | performed at [facility];[address] | | LAB | | | | [address];[place] | | | | | | [address] | | | | + + + + + -+ | Absolute | 6.4Comment: Testing | 1.9 - 7.4 K/uL | EXTERNAL | | | Segmented | performed at [facility];[address] | | LAB | | | Neutrophils | [address];[place] | | | | | | [address] | | | | + + + + + -+ | Absolute | 2.7Comment: Testing | 1.0 - 3.9 K/uL | EXTERNAL | | | Lymphocytes | performed at [facility];[address] | | LAB | | | | [address];[place] | | | | | | [address] | | | | + + + + + -+ | Absolute | 0.8Comment: Testing | 0 - 0.8 K/uL | EXTERNAL | | | Monocytes | performed at [facility];[address] | | LAB | | | | [address];[place] | | | | | | [address] | | | | + + + + + -+ | Absolute | 0.4Comment: Testing | 0 - 0.5 K/uL | EXTERNAL | | | Eosinophils | performed at [facility];[address] | | LAB | | | | [address];[place] | | | | | | [address] | | | | + + + + + -+ | Absolute | 0.1Comment: Testing | 0 - 0.1 K/uL | EXTERNAL | | | Basophils | performed at [facility];[address] | | LAB | | | | [address];[place] | | | | | | [address] | | | | + + + + + -+ | Na | 137Comment: Testing | 135 - 143 | EXTERNAL | | | | performed at [facility];[address] | mmol/L | LAB | | | | [address];[place] | | | | | | [address] | | | | + + + + + -+ | K | 3.7Comment: Testing | 3.5 - 4.9 | EXTERNAL | | | | performed at [facility];[address] | mmol/L | LAB | | | | [address];[place] | | | | | | [address] | | | | + + + + + -+ | Cl | 103Comment: Testing | 99 - 109 mmol/L | EXTERNAL | | | | performed at [facility];[address] | | LAB | | | | [address];[place] | | | | | | [address] | | | | + + + + + -+ | CO2 | 28Comment: Testing | 23 - 32 mmol/L | EXTERNAL | | | | performed at [facility];[address] | | LAB | | | | [address];[place] | | | | | | [address] | | | | + + + + + -+ | Anion Gap | 11Comment: Testing | 5 - 20 mmol/L | EXTERNAL | | | | performed at [facility];[address] | | LAB | | | | [address];[place] | | | | | | [address] | | | | + + + + + -+ | Glucose, | 212 (H)Comment: Testing | 65 - 99 mg/dL | EXTERNAL | | | Fasting | performed at [facility];[address] | | LAB | | | | [address];[place] | | | | | | [address] | | | | + + + + + -+ | BUN | 15Comment: Testing | 8 - 25 mg/dL | EXTERNAL | | | | performed at [facility];[address] | | LAB | | | | [address];[place] | | | | | | [address] | | | | + + + + + -+ | Creatinine | 1.14Comment: Testing | 0.70 - 1.30 | EXTERNAL | | | | performed at [facility];[address] | mg/dL | LAB | | | | [address];[place] | | | | | | [address] | | | | + + + + + -+ | BUN/Creatin | 13Comment: Testing | | EXTERNAL | | | ine Ratio | performed at [facility];[address] | | LAB | | | | [address];[place] | | | | | | [address] | | | | + + + + + -+ | Calcium | 8.9Comment: Testing | 8.5 - 10.2 | EXTERNAL | | | | performed at [facility];[address] | mg/dL | LAB | | | | [address];[place] | | | | | | [address] | | | | + + + + + -+ | Protein, | 8.0Comment: Testing | 6.3 - 8.2 g/dL | EXTERNAL | | | Total | performed at [facility];[address] | | LAB | | | | [address];[place] | | | | | | [address] | | | | + + + + + -+ | Albumin | 3.3 (L)Comment: Testing | 3.6 - 5.0 g/dL | EXTERNAL | | | | performed at [facility];[address] | | LAB | | | | [address];[place] | | | | | | [address] | | | | + + + + + -+ | Globulin | 4.7Comment: Testing | 1.3 - 4.9 g/dL | EXTERNAL | | | | performed at [facility];[address] | | LAB | | | | [address];[place] | | | | | | [address] | | | | + + + + + -+ | A/G Ratio | 0.7 (L)Comment: Testing | 1.0 - 2.4 | EXTERNAL | | | | performed at [facility];[address] | | LAB | | | | [address];[place] | | | | | | [address] | | | | + + + + + -+ | Bilirubin | 0.3Comment: Testing | 0.1 - 1.5 mg/dL | EXTERNAL | | | Total | performed at [facility];[address] | | LAB | | | | [address];[place] | | | | | | [address] | | | | + + + + + -+ | ALP, | 115Comment: Testing | 35 - 115 U/L | EXTERNAL | | | External | performed at [facility];[address] | | LAB | | | | [address];[place] | | | | | | [address] | | | | + + + + + -+ | AST | 20Comment: Testing | 10 - 45 U/L | EXTERNAL | | | | performed at [facility];[address] | | LAB | | | | [address];[place] | | | | | | [address] | | | | + + + + + -+ | ALT | 22Comment: Testing | 10 - 65 U/L | EXTERNAL | | | | performed at [facility];[address] | | LAB | | | | [address];[place] | | | | | | [address] | | | | + + + [...] at [facility];[address] [facility] | | | | | | Blvd;[place] [address] | | | | + + + + + -+ | CK, Total | 107Comment: Testing | 55 - 400 U/L | EXTERNAL | | | | performed at [facility];[address] | | LAB | | | | [facility] [address];[place] | | | | | | [address] | | | | + + + [...] | | | | | performed at [facility];[address] | | | | | | [address];[place] | | | | | | [address] | | | | + + + + + -+ | aPTT, | 26Comment: Testing | 23 - 32 seconds | EXTERNAL | | | Patient | performed at [facility];[address] | | LAB | | | | [address];[place] | | | | | | [address] | | | | + + + + + -+ | CK-MB | 3.0Comment: Testing | 0.5 - 3.6 ng/mL | EXTERNAL | | | | performed at [facility];[address] | | LAB | | | | [address];[place] | | | | | | [address] | | | | + + + [...] | | | | | performed at [facility] | | | | | | [facility];[place], [place] | | | | | | [address] | | | | + + + [...] | LAB | | | | [address];[place], [place] | | | | | | [address] | | | | + + + [...] | LAB | | | | [address];[place] | | | | | | [address] | | | | + + + [...] | EXTERNAL | | | A1c | [facility] | | LAB | | | [...] | | | | | performed at [facility], [address] | | | | | | [address] [facility], | | | | | | [place] [address] | | | | + + [...] | | | | | performed at [facility], [address] | | | | | | [address], | | | | | | [place] [address] | | | | + + + [...]
--- OUTSIDE RECORDS SUMMARY | ~2019-09-09 | XMS | Encounter Summary ---
Demographics + + + | Address | [address] | | | [place] [address] | + + + | Home Phone [...] + | Sammi Kohler | ECON | [place] [address] | | + + + + + Care Team Providers + +------+ + | Care Pediatric Oncologist Name | Role | Phone | + +------+ + PCP | Unavailable | + +------+ + Encounter Details +--------+ + + + + | Date | Type | Department | Care Team | Description | +--------+ + + + + | 05/09/ | Emergency | [facility] | Kevyn Barker MD | Paresthesias | | 2015 | | [facility] | [address] | | | | | EMERGENCY CENTER | [place] [address] | | | | | [address] [facility] [facility] | [phone] | | | | | [place], [place] | | | | | | [address] | | | | | | [phone] | | | +--------+ + + + [...] ED Notes Kenrick Transaction, Provider Unknown - 05/09/2014 12:14 PM PDTFormatting of this note m ight be different from the original. ED Notes by Bambi Gama RN at 05/09/141213 Author: Bambi Gama RN Service: (none) Author Type: Registered Nurse Filed: 05/09/141214 Date of Service: 05/09/141213 Status: Signed Hose Builder: Bambi Gama RN (Registered Nurse) On d/ c pt moving all extremeties spontaneously and without apparent diff Bambi Gama RN 05/09/141214 onver ivana Transaction, Provider Unknown - 05/09/2014 12:00 PM PDT ED Notes by Bambi Gama RN at 05/09/14 1200 Author: Bambi Gama RN Service: (none) Author Type: Registered Nurse Filed: 05/09/14 1214 Date of Service: 05/09/14 1200 Status: Signed Hose Builder: Bambi Gama RN (Registered Nurse) Pt moving all extremeties equally Bambi Gama RN 05/09/14 1214 onver ivana Transaction, Provider Unknown - 05/09/2014 11:57 AM PDT ED Notes by Bambi Gama RN at 05/09/14 1157 Author: Bambi Gama RN Service: (none) Author Type: Registered Nurse Filed: 05/09/14 1158 Date of Service: 05/09/14 1157 Status: Signed Hose Builder: Bambi Gama RN (Registered Nurse) Called for cabulance for pt Bambi Gama RN 05/09/14 1158 onver ivana Transaction, Provider Unknown - 05/09/2014 11:33 AM PDT ED Notes by Bambi Gama RN at 05/09/14 1133 Author: Bambi Gama RN Service: (none) Author Type: Registered Nurse Filed: 05/09/14 1135 Date of Service: 05/09/14 1133 Status: Signed Hose Builder: Bambi Gama RN (Registered Nurse) Appears to move l arm and leg sporadically. Appears to forget he can't move l arm and leg a t times and moves both spontaneously. Speech clear, no facial droop Bambi Gama RN 05/09/14 1135 evyn Lawton MD - 05/09/2014 11:25 AM PDTFormatting of this note might be different from the or iginal. ED Provider Notes by Kevyn Barker MD at 05/09/14 1125 Author: Kevyn Barker MD Service: Emergency Department Author Type: Physician Filed: 05/09/14 1251 Date of Service: 05/09/141124 Status: Signed Hose Builder: Kevyn Barker MD (Physician) [facility] Department of Emergency Medicine No flowsheet data found. History of Present Illness Patient Identification Kevyn Guzman is a 58 y.o. male. Patient information was obtained from patient and EMS personnel. History/Exam limitations: none. Patient presented to the Emergency Department [facility] Room:1106/1106 Chief Complaint Chief Complaint [...] [facility] OR ; Service: Plastics; Laterality: Left; upper arm and upper back w/frozen section Esophagogastroduodenoscopy 03/03/2013 Procedure: ESOPHAGOGASTRODUODENOSCOPY; Surgeon: Howie Gibson MD; Location: [facility] ENDOSCOPY; S ervice: Gastroenterology; Laterality: N/A; Colonoscopy 03/04/2013 Procedure: COLONOSCOPY; Surgeon: Howie Gibson MD; Location: [facility] END[facility]COPY; Service: Gastroe nterology; Laterality: N/A; Upper gastrointestinal endoscopy Skin biopsy Hernia repair 07/03/2013 Procedure: LAPAROSCOPIC - HERNIA - INCISIONAL; Surgeon: Jevon Vargas DO; Location: [facility] MAIN OR; Service: General; Laterality: N/A; Skin lesion excision Left 05/05/2014 Procedure: EXCISION - LESION - FROZEN SECTION; Surgeon: Sy Fierro MD; Location: [facility]; Service: Plastics; Laterality: Left; forearm Prior to Admission medications Medication Sig Start Date End Date Taking? Authorizing Provider Albuterol Sulfate (VENTOLIN HFA IN) Inhale 2 puffs into the lungs as needed. 108 mcg/act Historical Provider Hjgyg-U-Mdejvejzbtjui (BEANO) TABS Take 150 Units by mouth [...] 100 mg by mouth nightly. Historical Provider jgkuwxlbn-jlomwpfg-rkspsobcx hydroxide-simethicone Take 40 mLs by mouth daily [...] from 1129: Sinus rhythm at 75 bpm. NV, QRS, QT, and axis are normal. No [...] for a visit [address] [facility] [address] [facility] [address] Aakash Rhodes MD [address] [facility] [address] Discharge Medications: Discharge Medication List as of 05/09/2014 11:54 AM This document has been prepared with a voice recognition system. The possibility of "sound alike" um specialist errors, addition and/or deletions may occur. If there is any question p lease contact the author of the document. Procedures Additional Documentation Procedures Kevyn Barker MD 05/09/14 1251 onversion Transactio n, Provider Unknown - 05/09/2014 11:21 AM PDT ED Notes by Mili Goode RN at 05/09/14 112 Author: Mili Goode RN Service: (none) Author Type: Registered Nurse Filed: 05/09/14 112 Date of Service: 05/09/141120 Status: Signed Hose Builder: Mili Goode, RN (Registered Nurse) Bed: 1106 Expected date: Expected time: Means of arrival: Comments: Genaro wilson in this encounter Plan of Treatment +--------+---------+ + + + | Date | Type | Specialty | Care Team | Description | +--------+---------+ + + + | 09/10/ | Office | Geriatric Medicine | Mireya Pack, | | | 2019 | Visit | | STOCK WORKER [address] | | | | | | [address] [place], | | | | | | [place] [address] | | | | | | [phone] | | | | | | | | +--------+---------+ + + + | 09/29/ | Office | Urology | Mireya Pack, | | | 2019 | Visit | | STOCK WORKER [address] | | | | | | [address] [place], | | | | | | [place] [address] | | | | | | [phone] | | | | | | | | | | | | Toy Wild, | | | | | | [address] | | | | | | [place] [address] | | | | | | [phone] | | | | | | | [...] (500), | | | | | | pictures editor LIZETTE WATERMAN (2) | | | [...]
--- OUTSIDE RECORDS SUMMARY | ~2019-09-09 | XMS | Encounter Summary ---
Demographics + + + | Address | [address] | | | [place] [address] | + + + | Home Phone [...] Sammi Kohler | ECON | [place] [address] | | + + + + + Care Team Providers + +------+ + | Care Seed Laboratory Technician Name | Role | Phone | + +------+ + | Mireya Pack NP | PCP | | + +------+ + Encounter Details +--------+ + + + + | Date | Type | Department | Care Team | Description | +--------+ + + + + | 11/05/ | Telephone | [facility] | Ashley Scales, | | | 2018 | | SENIOR HRIS ANALYST | RN | | | | | [address] | | | | | | [address] | | | | | | [place], [place] | | | | | | [address] | | | | | | [phone] | | | +--------+ + + + [...] RN - 11/16/2018 2:36 PM [facility] up [facility] Ver[facility] name and . Situation TCM encounter for Hospital admission Background Patient was admitted for [facility] from 10/11/18-10/16/18 chest pain on 11/15/18 [...] yes reviewed patient instructions from PCP appt Clay nt has been taking 55 units of insulin detemir before bed. We reviewed Erwin notes from katy oilucy and her change of night time insulin [...] Care Management [facility]lig[facility] for T[facility] Billing LOS [id number]? yes - spoke with patient on 11.06.18. Patient esthela ne was very hard to hear and patient had a stated caregiver over and couldn't talk long Patient questions/concerns needing provider review: BACKGROUND Admission Date: 10/11/18 Discharge Date: 10/16/18 [facility]position[facility] Principle Discharge Diagnosis: [facility] from 10/11/18-10/16/18 chest pain ASSESSMENT General: [...] no Medication Literacy: Were you able to hand picker your medications after discharge? No: unable [...] Provider Department Center 11/07/2018 14:30 NORM [place] Patient takes dial a ride and states [...] | | 2019 | Visit | | ORDER BUILDER LOADER [address] | | | | | | [address] [place], | | | | | | [place] [address] | | | | | | [phone] | | | | | | | | +--------+---------+ + + + | 09/29/ | Office | Urology | Mireya Pack, | | | 2019 | Visit | | ORDER BUILDER LOADER [address] | | | | | | [address] [place], | | | | | | [place] [address] | | | | | | [phone] | | | | | | | | | | | | Toy Wild, DO | | | | | | [address] | | | | | | [place] [address] | | | | | | [phone] | | | | | | | | +--------+---------+ + + + documented as of this encounter Visit Diagnoses [facility] encounter
--- OUTSIDE RECORDS SUMMARY | ~2019-09-09 | XMS | Encounter Summary ---
Demographics + + + | Address | [address] | | | [place] [address] | + + + | Home Phone [...] + | Sammi Kohler | ECON | [place] [address] | | + + + + + Care Team Providers + +------+ + | Care Sports Marketing Internship Name | Role | Phone | + +------+ + PCP | Unavailable | + +------+ + Encounter Details +--------+ + + + + | Date | Type | Department | Care Team | Description | +--------+ + + + + | 04/08/ | Emergency | [facility] | | Chest pain; | | 2014 - | [facility] | | Pedal edema | | | | [facility] | | | | 04/09/ | | [address] | | | | 2014 | | [place], [place] | | | | | | [address] | | | | | | [phone] | | | +--------+ + + + [...] 04/09/14422 Date of Service: 04/09/14329 Status: Signed Heel Pricker: Bill Mcgarry RN (Registered Nurse) Secondary istat troponin was performed with a 0.00 reading Bill Mcgarry RN 04/09/14422 onver ivana Transaction, Provider Unknown - 04/09/2014 3:07 AM PST ED Notes by Bill Mcgarry RN at 04/09/14 0307 Author: Bill Mcgarry RN Service: (none) Author Type: Registered Nurse Filed: 04/09/14432 Date of Service: 04/09/14306 Status: Signed Heel Pricker: Bill Mcgarry RN (Registered Nurse) Performed road [...] 04/09/14431 Date of Service: 04/09/14199 Status: Signed Heel Pricker: Bill Mcgarry RN (Registered Nurse) Ambulated to restroom with no difficulty Bill Mcgarry RN 04/09/14431 onver ivana Transaction, Provider Unknown - 04/09/2014 12:41 AM PST ED Notes by oDris Moya at 04/09/1440 Author: Doris oMya Service: (none) Author Type: Hide Washer Filed: 04/09/1440 Date of Service: 04/09/1440 Status: Signed Heel Pricker: Doris Moya (Hide Washer) EKG performed by EVE Moya 04/09/1440 rabtr aMrcos eastman MD - 04/09/2014 12:26 AM PST ED Provider Notes by Marcos Nugent MD at 04/09/1425 Author: Marcso Nugent MD Service: (none) Author Type: Physician Filed: 04/10/14 0909 Date of Service: 04/09/1425 Status: Signed Heel Pricker: Marcos Nugent MD (Physician) [facility] Department of Emergency Medicine History of Present Illness Patient Identification Norah Gr is a 58 y.o. male. Patient information was obtained from patient. History/Exam limitations: none. Patient presented to the Emergency Department by: [facility] [place]Note 2] [id number] Chief Complaint Chief Complaint Patient presents [...] lungs as needed. 108 mcg/act Historical Provider Umnjb-J-Xctfojmttykzg (BEANO) TABS Take 150 Units by mouth [...] daily. 180 mg at hs 11/30/13 11/30/14 [facility] carlyn Mae MD docusate sodium (COLACE) [...] 100 mg by mouth nightly. Historical Provider qihcdmzbf-kuokwmic-kbkxuivfv hydroxide-simethicone Take 40 mLs by mouth daily [...] started on Lasix for 3 days from y through 07 April. And she has been [...] on oral Lasix for the next one wechad k. He will need close outpatient follow-up. [...] notes. (Using the electronic record system of [facility]) Laboratory Evaluation Results Procedure Component Value Ref Range Date/Time POC cardiac troponin [[id number]] Collected: 04/09/14 0244 Order Status: Completed Updated: 04/09/14413 POC CARDIAC TROPONIN 0.00 0.00 - 0.10 ng/mL Brain natriuretic peptide [[id number]] Collected: 04/09/14104 Order Status: Completed Updated: 04/09/14412 BRAIN NATRIURETIC PEPTIDE 16.3 0 - 100 pg/mL Cardiac Panel [[id number]] (Abnormal) Collected: 04/09/14104 Order Status: Completed Updated: [...] ng/mL CK-MB Index 2.8 POC cardiac troponin [[id number]] Collected: 04/09/14 0018 Order Status: Completed Updated: [...] Follow up With Details Comments Contact [facility] Emergency Department If symptoms worsen [address] [facility] [address] Jerrell Ginny Westcarrollsing, DO In [address] [facility] [address] Jerrell Ginny Westhusing, DO In [address] [facility] [address] [facility] Emergency Department [address] [facility] [address] [facility] Emergency Department If symptoms worsen [address] [facility] [address] Discharge Medications: Discharge Medication List as of 04/09/2014 12:57 AM START taking these medications Details furosemide (LASIX) 20 MG tablet Take 1 tablet by mouth daily., Starting 04/09/2014, Until Joselyn 04/09/15, Print This document has been prepared with a voice recognition system. The possibility of "sound alike" senior sql developer errors, and additions or deletions may occur. [...] Notes by Ashley Delgado RN at 04/08/14 3661 Author: Ashley Delgado RN Service: (none) Author Type: Registered Nurse Filed: 04/08/142356 Date of Service: 04/08/142356 Status: Signed Heel Pricker: Ashley Delgado RN (Registered Nurse) Bed: 10 Expected date: Expected time: Means of arrival: Comments: onver ivana Transaction, Provider Unknown - 04/08/2014 11:56 PM PST ED Notes by Ashley Delgado RN at 04/08/142355 Author: Ashley Delgado RN Service: (none) Author Type: Registered Nurse Filed: 04/08/142355 Date of Service: 04/08/142355 Status: Signed Heel Pricker: Ashley Delgado RN (Registered Nurse) Bed: 04 Expected date: Expected time: Means of arrival: Comments: docume nted in this encounter Plan of Treatment +--------+---------+ + + + | Date | Type | Specialty | Care Team | Description | +--------+---------+ + + + | 09/10/ | Office | Geriatric Medicine | Mireya Pack, | | | 2019 | Visit | | EMPLOYMENT PROGRAMS ANALYST [address] | | | | | | [address] [place], | | | | | | [place] [address] | | | | | | [phone] | | | | | | | | +--------+---------+ + + + | 09/29/ | Office | Urology | Mireya Pack, | | | 2019 | Visit | | EMPLOYMENT PROGRAMS ANALYST [address] | | | | | | [address] [place], | | | | | | [place] [address] | | | | | | [phone] | | | | | | | | | | | | Toy Wild, DO | | | | | | [address] | | | | | | [place] [address] | | | | | | [phone] | | | | | | | [...] | | performed at [facility];[address] | K/uL | LAB | | | | [address];[place] | | | | | | [address] | | | | + + + + + -+ | Non- | 4.92Comment: Testing | 4.20 - 5.70 | EXTERNAL | | | Red Blood | performed at [facility];[address] | M/uL | LAB | | | Cells | [address];[place] | | | | | Counted | [address] | | | | + + + + + -+ | Hemoglobin | 12.5 (L)Comment: Testing | 13.2 - 17.0 | EXTERNAL | | | | performed at [facility];888 | g/dL | LAB | | | | [address];[place] | | | | | | [address] | | | | + + + + + -+ | Hematocrit, | 38.4 (L)Comment: Testing | 39.0 - 50.0 % | EXTERNAL | | | POC | performed at [facility];[address] | | LAB | | | | [address];[place] | | | | | | [address] | | | | + + + + + -+ | MCV | 78.0 (L)Comment: Testing | 80.0 - 100.0 fl | EXTERNAL | | | | performed at [facility];[address] | | LAB | | | | [address];[place] | | | | | | [address] | | | | + + + + + -+ | MCH | 25.4 (L)Comment: Testing | 27.0 - 34.0 pg | EXTERNAL | | | | performed at [facility];[address] | | LAB | | | | [address];[place] | | | | | | [address] | | | | + + + + + -+ | MCHC | 32.5Comment: Testing | 32.0 - 35.5 | EXTERNAL | | | | performed at [facility];888 | g/dL | LAB | | | | [address];[place] | | | | | | [address] | | | | + + + + + -+ | RDW-CV | 42.9Comment: Testing | 37 - 53 fl | EXTERNAL | | | | performed at [facility];[address] | | LAB | | | | [address];[place] | | | | | | [address] | | | | + + + + + -+ | Platelet | 272Comment: Testing | 150 - 400 K/uL | EXTERNAL | | | Count | performed at [facility];[address] | | LAB | | | Plasma | [address];[place] | | | | | | [address] | | | | + + + + + -+ | MPV | 7.8Comment: Testing | fl | EXTERNAL | | | | performed at [facility];[address] | | LAB | | | | [address];[place] | | | | | | [address] | | | | + + + + + -+ | Differentia | AUTOMATEDComment: | | EXTERNAL | | | l Type | Testing performed at | | LAB | | | | [facility];[address] | [address];[place] [address] | | | | + + + + + -+ | % Segmented | 58.63Comment: Testing | % | EXTERNAL | | | | performed at [facility];[address] | | LAB | | | Neutrophils | [address];[place] | | | | | | [address] | | | | + + + + + -+ | % | 26.76Comment: Testing | % | EXTERNAL | | | Lymphocytes | performed at [facility];[address] | | LAB | | | | [address];[place] | | | | | | [address] | | | | + + + + + -+ | % Monocytes | 9.59Comment: Testing | % | EXTERNAL | | | | performed at [facility];[address] | | LAB | | | | [address];[place] | | | | | | [address] | | | | + + + + + -+ | % | 4.58Comment: Testing | % | EXTERNAL | | | Eosinophils | performed at [facility];[address] | | LAB | | | | [address];[place] | | | | | | [address] | | | | + + + + + -+ | % Basophils | 0.44Comment: Testing | % | EXTERNAL | | | | performed at [facility];[address] | | LAB | | | | [address];[place] | | | | | | [address] | | | | + + + + + -+ | Absolute | 5.83Comment: Testing | 1.90 - 7.40 | EXTERNAL | | | Segmented | performed at [facility];[address] | K/uL | LAB | | | Neutrophils | [address];[place] | | | | | | [address] | | | | + + + + + -+ | Absolute | 2.66Comment: Testing | 1.00 - 3.90 | EXTERNAL | | | Lymphocytes | performed at [facility];[address] | K/uL | LAB | | | | [address];[place] | | | | | | [address] | | | | + + + + + -+ | Absolute | 0.95 (H)Comment: Testing | 0.00 - 0.80 | EXTERNAL | | | Monocytes | performed at [facility];[address] | K/uL | LAB | | | | [address];[place] | | | | | | [address] | | | | + + + + + -+ | Absolute | 0.46Comment: Testing | 0.00 - 0.50 | EXTERNAL | | | Eosinophils | performed at [facility];[address] | K/uL | LAB | | | | [address];[place] | | | | | | [address] | | | | + + + + + -+ | Absolute | 0.04Comment: Testing | 0.00 - 0.10 | EXTERNAL | | | Basophils | performed at [facility];[address] | K/uL | LAB | | | | [address];[place] | | | | | | [address] | | | | + + + + + -+ | Na | 142Comment: Testing | 135 - 143 | EXTERNAL | | | | performed at [facility];[address] | mmol/L | LAB | | | | [address];[place] | | | | | | [address] | | | | + + + + + -+ | K | 3.8Comment: Testing | 3.5 - 4.9 | EXTERNAL | | | | performed at [facility];[address] | mmol/L | LAB | | | | [address];[place] | | | | | | [address] | | | | + + + + + -+ | Cl | 106Comment: Testing | 99 - 109 mmol/L | EXTERNAL | | | | performed at [facility];[address] | | LAB | | | | [address];[place] | | | | | | [address] | | | | + + + + + -+ | CO2 | 29Comment: Testing | 23 - 32 mmol/L | EXTERNAL | | | | performed at [facility];[address] | | LAB | | | | [address];[place] | | | | | | [address] | | | | + + + + + -+ | Anion Gap | 11Comment: Testing | 5 - 20 mmol/L | EXTERNAL | | | | performed at [facility];[address] | | LAB | | | | [address];[place] | | | | | | [address] | | | | + + + + + -+ | Glucose, | 157 (H)Comment: Testing | 65 - 99 mg/dL | EXTERNAL | | | Fasting | performed at [facility];[address] | | LAB | | | | [address];[place] | | | | | | [address] | | | | + + + + + -+ | BUN | 21Comment: Testing | 8 - 25 mg/dL | EXTERNAL | | | | performed at [facility];[address] | | LAB | | | | [address];[place] | | | | | | [address] | | | | + + + + + -+ | Creatinine | 1.21Comment: Testing | 0.70 - 1.30 | EXTERNAL | | | | performed at [facility];[address] | mg/dL | LAB | | | | [address];[place] | | | | | | [address] | | | | + + + + + -+ | BUN/Creatin | 17Comment: Testing | | EXTERNAL | | | ine Ratio | performed at [facility];[address] | | LAB | | | | [address];[place] | | | | | | [address] | | | | + + + + + -+ | Calcium | 8.5Comment: Testing | 8.5 - 10.5 | EXTERNAL | | | | performed at [facility];[address] | mg/dL | LAB | | | | [address];[place] | | | | | | [address] | | | | + + + + + -+ | Protein, | 7.5Comment: Testing | 6.3 - 8.2 g/dL | EXTERNAL | | | Total | performed at [facility];[address] | | LAB | | | | [address];[place] | | | | | | [address] | | | | + + + + + -+ | Albumin | 3.3 (L)Comment: Testing | 3.6 - 5.0 g/dL | EXTERNAL | | | | performed at [facility];[address] | | LAB | | | | [address];[place] | | | | | | [address] | | | | + + + + + -+ | Globulin | 4.2Comment: Testing | 1.3 - 4.9 g/dL | EXTERNAL | | | | performed at [facility];[address] | | LAB | | | | [address];[place] | | | | | | [address] | | | | + + + + + -+ | A/G Ratio | 0.8 (L)Comment: Testing | 1.0 - 2.4 | EXTERNAL | | | | performed at [facility];[address] | | LAB | | | | [address];[place] | | | | | | [address] | | | | + + + + + -+ | Bilirubin | 0.3Comment: Testing | 0.1 - 1.5 mg/dL | EXTERNAL | | | Total | performed at [facility];[address] | | LAB | | | | [address];[place] | | | | | | [address] | | | | + + + + + -+ | ALP, | 88Comment: Testing | 35 - 115 U/L | EXTERNAL | | | External | performed at [facility];[address] | | LAB | | | | [address];[place] | | | | | | [address] | | | | + + + + + -+ | AST | 17Comment: Testing | 10 - 45 U/L | EXTERNAL | | | | performed at [facility];[address] | | LAB | | | | [address];[place] | | | | | | [address] | | | | + + + + + -+ | ALT | 20Comment: Testing | 10 - 65 U/L | EXTERNAL | | | | performed at [facility];[address] | | LAB | | | | [address];[place] | | | | | | [address] | | | | + + + [...] | | | at [facility];[address] [facility] | | | | | | Blvd;[place] [address] | | | | + + + + + -+ | CK, Total | 134Comment: Testing | 55 - 400 U/L | EXTERNAL | | | | performed at [facility];[address] | | LAB | | | | [facility] | | | | | | [address] | | | | + + + [...] | | performed at [facility];[address] | | | | | | [facility] [facility] [address];[place] | | | | | | [address] | | | | + + + + + -+ | aPTT, | 25Comment: Testing | 23 - 32 seconds | EXTERNAL | | | Patient | performed at [facility];[address] | | LAB | | | | [address];[place] | | | | | | [address] | | | | + + + + + -+ | CK-MB | 3.8 (H)Comment: Testing | 0.5 - 3.6 ng/mL | EXTERNAL | | | | performed at [facility];[address] | | LAB | | | | [address];[place] | | | | | | [address] | | | | + + + [...] | | performed at [facility];[address] | | LAB | | | | [address];[place], [place] | | | | | | [address] | | | | + + + [...] (500), | | | | | | communications editor Keyla Gregory | | | | [...]
--- OUTSIDE RECORDS SUMMARY | ~2019-09-09 | XMS | Encounter Summary ---
Demographics + + + | Address | [address] | | | [place] [address] | + + + | Home Phone [...] Sammi Kohler | ECON | [place] [address] | | + + + + + Care Team Providers + +------+ + | Care Yardage Caller Name | Role | Phone | + [...] + + | 09/05/ | Refill | [facility] | Mireya Pack, | Medication Refill | | 2019 | | [facility] [address] | MEMBERSHIP SOLICITOR [address] | | | | | [address] | [address] [place], | | | | | [place], [place] | [place] [address] | | | | | [address] | [phone] | | | | | [phone] | | | +--------+--------+ + + + [...] Miscellaneous Notes Telephone Encounter - Mel Morton, [employer] Portal Developer - 09/09/2019 8:23 AM PDTFormatt ing of [...] mented in this encounter Plan of Treatment +--------+---------+ + + + | Date | Type | Specialty | Care Team | Description | +--------+---------+ + + + | 09/10/ | Office | Geriatric Medicine | Mireya Pack, | | 2019 | Visit | | MEMBERSHIP SOLICITOR [address] | | | | | | [address] [place], | | | | | | [place] [address] | | | | | | [phone] | | | | | | | | +--------+---------+ + + + | 09/29/ | Office | Urology | Mireya Pack, | | | 2019 | Visit | | MEMBERSHIP SOLICITOR [address] | | | | | | [address] [place], | | | | | | [place] [address] | | | | | | [phone] | | | | | | | | | | | | Toy Wild W, DO | | | | | | [address] | | | | | | [place] [address] | | | | | | [phone] | | | | | | | | +--------+---------+ + + + documented as of this encounter Visit Diagnoses Not on filedocumented in this encounter"
--- OUTSIDE RECORDS SUMMARY | ~2019-09-09 | XMS | Encounter Summary ---
Demographics + + + | Address | [address] | | | [place] [address] | + + + | Home Phone [...] + | Sammi Kohler | ECON | [place] [address] | | + + + + + Care Team Providers + +------+ + | Care Collar Cutter Name | Role | Phone | + +------+ + PCP | Unavailable | + +------+ + Encounter Details +--------+ + + + + | Date | Type | Department | Care Team | Description | +--------+ + + + + | 12/27/ | Hospital | [facility] | Kristian Meadows, | Acute chest pain | | 2015 - | Encounter | [facility] | [address] | | | | | CLINICAL DECISION | [place] [address] | | | 12/28/ | | [address] | [phone] | | | 2015 | | [place], [place] | | | | | | [address] | | | | | | [phone] | | | +--------+ + + + [...] 12/28/1444 Date of Service: 12/28/14939 Status: Signed Field Support Technician: Syd Varghese MD (Physician) Patient ID: Norah Gr [id number] 59 y.o. 1955 Admit date: 12/27/2014 Discharge [...] be admitted for observation under rule out OR protocol under the Hosp italist Service. We will not be planning on stress test as the patient had recent negative s tudy, and his 2013 cardiac catheterization showed only minimal coronary artery disease. Hospital Course: Serial trop neg. Since 2014 Cath was minimal disease then no further [...] tablet Refills: 0 Commonly known as: LaMICtal oclhcpetl-qkdmjwot-svsbowvjt hydroxide-simethicone Refills: 0 lisinopril 40 MG tablet [...] 12/28/14939 Date of Service: 12/28/14939 Status: Signed Field Support Technician: Magaly Sim RN (Registered Nurse) Pt discharged. IV removed. Instructions given and pt states understanding. No c/o at this time. Discharged with family. onver ivana Transaction, Provider Unknown - 12/28/2014 8:58 AM PST Case Management by Elaine Garcia RN at 12/28/14857 Author: Elaine Garcia RN Service: (none) Author Type: Registered Nurse Filed: 12/28/14905 Date of Service: 12/28/14857 Status: Signed Field Support Technician: Elaine Garcia RN (Registered Nurse) spoke with patient and reviewed living arrangements. [...] talked to about calling 911 at the [place] and getting a taxi ri de home [...] to provi de for his basic needs onver ivana Transaction, Provider Unknown - 12/27/2014 3:36 PM PST Progress Notes by Melania Bautista RPH at 12/27/141535 Author: Melania Bautista RPH Service: (none) Author Type: Pharmacist Filed: 12/27/141535 Date of Service: 12/27/141535 Status: Signed Field Support Technician: Melania Bautista RPH (Pharmacist) Renal Dosing Monitoring: [...] Case Management by QUINN White at 12/27/14 9874 Author: QUINN White Service: (none) Author Type: Lumber Sticker Filed: 12/27/14 7162 Date of Service: 12/27/14 4077 Status: Signed Field Support Technician: QUINN White (Lumber Sticker) Pt is enrolled in consistent Care program, care guidelines noted below: Care Recommendation: Norah moved out of the Assisted Living Facility out into an apartment on his own. This is a gainst the better judgement of most people involved-he insists on living on his own. 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 The following guidelines were formulated by the ED Care Guidelines Committee of the [facility] Consistent Care Program on May 21, 2013. No controlled substances should be administered in the ED or prescribed from the ED for sub jective pain. Medical/Surgical History: Primary Care Provider (PCP) is CRUZITO GUTIÉRREZ DO at [phone] . Notify PCP if giving any additional narcotics for objective findings. PCP supports [facility] [place] [facility]. Medical History: 1. Diabetes-He is on a sliding scale after meals, routine insulin before meals and takes La ntus at night. A1C April, = 7.9%. He was referred to an forging press lever tender in February, 4. 2. Chest Pain- Coronary Angiography (10/20) showed no significant underlying CAD. His cardio logist is Dr Sterling. Stress test 07/21 negative. EF 60% 3. COPD- He take symbicort, Spiriva and albuterol, home O2 4. Hypertension- Patient feels that this is related to his anxiety. 5. Obstructive Sleep apnea- He is non-compliant with his CPAP-he has been referred to Dr. Jesus barr 6. History of ARF- He has been referred to Dr. Lyons for nephrology. 7. Atrial Fibrillation-He is on Coumadin 5mg daily. 8. Developmental delay 9. GI Bleed- EGD in February, shows 1.2 cm nodule at the GE junction (requiring managem ent in [place] at ), rectal ulcer and internal hemorrhoids. 10. Hernia- He has been referred to Dr. Vargas. 11. TIA- March, Mental Health: He has depression and anxiety- This is managed by his PCP. He takes Paxil and abilify. He has been referred to [facility] in February. According to [facility], he never establish ed care. Patient has now been scheduled twice and cancels at the last minute. Social History: He lives in an apartment of his own with a roommate, He has caregiving hours through [facility]. His Clinical Nursing Assistant is Fermin at [facility]. Norah is developmentally delayed- Patient may [...] providers. He would benefit from having a Clinical Nursing Assistant assist him in coordinating his care. There is an alternate plan in place for Norah- He may take a taxi (paid for my ACCP) to the Urgent Care Clinic ([facility] on [address]) for evaluation instead of the ED. The have been provided his pertinent medical records. Norah and the [facility] are aware of this plan. Norah has been known to call 911 from the [facility] to be transported to the ED, he knows he c an get a taxi ride home from the ED. Pain/Opioid Agreement: He has an order for hydrocodone as needed He does not have a diagnosis of chronic pain. Ple ase see CONTROL OFFICER MANAGER for prescribing history. Social History or Identified Risk: - Fall Risk - Non adherence - Transportation Issues Additional Information: This patient is case managed by the [facility] Program. Please contact the fingernail sculpturer at your hospital for any immediate or post ED discharge needs this patient may have. Please contact Tari at [facility] at when patient pr esents [...] Author: QUINN White Service: (none) Author Type: Lumber Sticker Filed: 12/27/14 2326 Date of Service: 12/27/14 1302 Status: Signed Field Support Technician: QUINN White (Lumber Sticker) 12/27/14 1300 Discharge Planning Evaluation Admitting Diagnosis [...] is DD - pt moved out of [facility] and now living on own with a room mate and di scussed discharge planning, Pt is a 59 y.o., male, lives in [place] with a room mate - pt r [...] docume nted in this encounter H&P Notes Gawlick, Kristian M, MD - 12/27/2014 1:03 PM PST H&P by Kristian Meadows MD at 12/27/14 1303 Author: Kristian Meadows MD Service: Hospitalist Author Type: Physician Filed: 12/28/14 1029 Date of Service: 12/27/14 1303 Status: Signed Field Support Technician: Kristian Meadows MD (Physician) Related Notes: Original Note by Kristian Meadows MD (Physician) filed at 12/27/14 1606 [facility] Service: Hospitalist Admission History & Physical Date [...] be admitted for observation under rule out OR protocol under the Hosp italist Service. We [...] failure ARF (acute renal failure) ([facility]) 03/02/2013 COPD (chronic obstructive pulmonary disease) ([facility]) 03/02/2013 hypoxemia on 2 lts [...] Stroke (HCC) TIA (transient ischemic attack) terminal supervisor (current) use of 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 Past Surgical History Procedure Laterality Date Unlisted procedure arthroscopy Knee surgery rt knee, patella Leg surgery LLE Colonoscopy Cholecystectomy, laparoscopic 09/12/2012 Procedure: LAPAROSCOPIC - CHOLECYSTECTOMY; Surgeon: Jevon Vargas DO; Location: [facility] MAIN OR; Service: General; Laterality: N/A; Abdominal surgery Cholecystectomy Skin cancer excision 10/10/2012 Procedure: EXCISION - SKIN CANCER; Surgeon: Sy Fierro MD; Location: [facility] MAIN OR ; Service: Plastics; Laterality: Left; upper arm and upper back w/frozen section Esophagogastroduodenoscopy 03/03/2013 Procedure: ESOPHAGOGASTRODUODENOSCOPY; Surgeon: Howie Gibson MD; Location: [facility] ENDOSCOPY; S ervice: Gastroenterology; Laterality: N/A; Colonoscopy 03/04/2013 Procedure: COLONOSCOPY; Surgeon: Howie Gibson MD; Location: [facility] ENDOSCOPY; Service: Gastroe nterology; Laterality: N/A; Upper gastrointestinal endoscopy Skin biopsy Hernia repair 07/03/2013 Procedure: LAPAROSCOPIC - HERNIA - INCISIONAL; Surgeon: Jevon Vargas DO; Location: [facility] MAIN OR; Service: General; Laterality: N/A; Skin lesion excision Left 05/05/2014 Procedure: EXCISION - LESION - FROZEN SECTION; Surgeon: Sy Fierro MD; Location: [facility] MAIN OR; Service: Plastics; Laterality: [...] as needed. 108 mcg/act Yes Historical Provider Kiwic-X-Hqjyzehjpyaak (BEANO) TABS Take 150 Units by mouth [...] by mouth nightly. Yes Historical Provide r xqewdbbdg-wesblkeu-ajqwbkwcm hydroxide-simethicone Take 40 mLs by mouth daily [...] alone x 1 wk, [facility], , 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 2 falls [...] Dec 21 2014 8:02AM Referring Provider Line: [phone] ID: [id number] Ct Head Non-con 12/20/2014 NORAH [...] set. 3-D reconstructions were performed using the [facility] 3-D software a nd sent to PACS. [...] T-wave changes to suggest ischemic process. Normal [place], QRS an d QTC intervals. HOSPITAL PROBLEM [...] pain. The patient will undergo rule out OR protocol with serial cardiac biomarkers and serial [...] This is per a note from a social welfare clerk - Oleg . He has a number of social risk factors which are fall risk, nonadherence to medications, a nd also transportation issues. Based on this information, we might also reconsider whether o r not anticoagulation with Coumadin extermination supervisor would pose greater risk than benefit intended. This will further be reconsidered by a.m. hospitalist. I will ask the case repairer for assistance. Thus, case management consult has [...] Date of Service: 12/27/14 1306 Status: Signed Field Support Technician: Maribeth Lew RN (Registered Nurse) Report given to Joe Lew RN 12/27/14 1306 onver ivana Transaction, Provider Unknown - 12/27/2014 12:38 PM PST ED Notes by Maribeth Lew RN at 12/27/14 1238 Author: Maribeth Lew RN Service: (none) Author Type: Registered Nurse Filed: 12/27/14 1238 Date of Service: 12/27/14 1238 Status: Signed Field Support Technician: Maribeth Lew RN (Registered Nurse) Lunch tray at bedside Maribeth Lew RN 12/27/14 1238 onver ivana Transaction, Provider Unknown - 12/27/2014 12:21 PM PST ED Notes by Maribeth Lew RN at 12/27/14 1221 Author: Maribeth Lew RN Service: (none) Author Type: Registered Nurse Filed: 12/27/14 1221 Date of Service: 12/27/14 1221 Status: Signed Field Support Technician: Maribeth Lew RN (Registered Nurse) Diet lunch tray ordered Maribeth Lew RN 12/27/14 1221 onver ivana Transaction, Provider Unknown - 12/27/2014 10:15 AM PST ED Notes by Maribeth Lew RN at 12/27/141014 Author: Maribeth Lew RN Service: (none) Author Type: Registered Nurse Filed: 12/27/141014 Date of Service: 12/27/141014 Status: Signed Field Support Technician: Maribeth Lew RN (Registered Nurse) To remain NPO at this time per Dr. Umesh Lew RN 12/27/141014 onver ivana Transaction, Provider Unknown - 12/27/2014 9:49 AM PST ED Notes by Maribeth Lew RN at 12/27/14948 Author: Maribeth Lew RN Service: (none) Author Type: Registered Nurse Filed: 12/27/14948 Date of Service: 12/27/14948 Status: Signed Field Support Technician: Maribeth Lew RN (Registered Nurse) Remains in CT Maribeth Lew RN 12/27/14948 onver ivana Transaction, Provider Unknown - 12/27/2014 8:23 AM PST ED Notes by Maribeth Lew RN at 12/27/14822 Author: Maribeth Lew RN Service: (none) Author Type: Registered Nurse Filed: 12/27/14822 Date of Service: 12/27/14822 Status: Signed Field Support Technician: Maribeth Lew RN (Registered Nurse) Confirmed tele monitoring Maribeth Lew RN 12/27/14822 onver ivana Transaction, Provider Unknown - 12/27/2014 8:18 AM PST ED Notes by Maribeth Lew RN at 12/27/14817 Author: Maribeth Lew RN Service: (none) Author Type: Registered Nurse Filed: 12/27/14819 Date of Service: 12/27/14817 Status: Signed Field Support Technician: Maribeth Lew RN (Registered Nurse) Patient states he was up this am and had sharp central chest pain, he ate something and forrest t to bed, he thought it got worse then called the ambulance Maribeth Lew RN 12/27/14819 ONDABarber , Norah Gross MD - 12/27/2014 8:10 AM PSTFormatting of this note might be different from the o riginal. ED Provider Notes by Norah Calvo MD at 12/27/14809 Author: Norah Calvo MD Service: (none) Author Type: Physician Filed: 12/27/14 1241 Date of Service: 12/27/14809 Status: Signed Field Support Technician: Norah Calvo MD (Physician) [facility] Department of Emergency Medicine 8:07 AM History [...] pain Stroke (HCC) TIA (transient ischemic attack) longterm (current) use of 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 Past Surgical History Procedure Laterality Date Unlisted procedure arthroscopy Knee surgery rt knee, patella Leg surgery LLE Colonoscopy Cholecystectomy, laparoscopic 09/12/2012 Procedure: LAPAROSCOPIC - CHOLECYSTECTOMY; Surgeon: Jevon Vargas DO; Location: [facility] MAIN OR; Service: General; Laterality: N/A; Abdominal surgery Cholecystectomy Skin cancer excision 10/10/2012 Procedure: EXCISION - SKIN CANCER; Surgeon: Sy Fierro MD; Location: [facility] MAIN OR ; Service: Plastics; Laterality: Left; upper arm and upper back w/frozen section Esophagogastroduodenoscopy 03/03/2013 Procedure: ESOPHAGOGASTRODUODENOSCOPY; Surgeon: Howie Gibson MD; Location: [facility] ENDOSCOPY; S ervice: Gastroenterology; Laterality: N/A; Colonoscopy 03/04/2013 Procedure: COLONOSCOPY; Surgeon: Howie Gibson MD; Location: [facility] ENDOSCOPY; Service: Gastroe nterology; Laterality: N/A; Upper gastrointestinal endoscopy Skin biopsy Hernia repair 07/03/2013 Procedure: LAPAROSCOPIC - HERNIA - INCISIONAL; Surgeon: Jevon Vargas DO; Location: [facility] MAIN OR; Service: General; Laterality: N/A; Skin lesion excision Left 05/05/2014 Procedure: EXCISION - LESION - FROZEN SECTION; Surgeon: Sy Fierro MD; Location: [facility] MAIN OR; Service: Plastics; Laterality: [...] lungs as needed. 108 mcg/act Historical Provider Qpgad-O-Lfhwsunpmzjhk (BEANO) TABS Take 150 Units by mouth [...] 100 mg by mouth nightly. Historical Provider xchjrvlhl-jmejvrcq-wiastbetm hydroxide-simethicone Take 40 mLs by mouth daily [...] Number of Children: 1 Years of Education: [employer]. [employer] Occupational History disabled Social History Main Topics Smoking status: Never Smoker Smokeless tobacco: Never Used Alcohol Use: 0.0 oz/week 1-2 Cans of beer per week Comment: once week, occasionally Drug Use: No Sexual Activity: Not Currently Other Topics Concern Not on file Social History Narrative Lives alone x 1 wk, [facility] , 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 2 falls [...] and currently rated 4/10 Resp: Negative for qdkswkcnx-hh-umyund, cough GI: Negative for abdominal pain, nausea, [...] patient has had 11 visits to the [facility] ED in the last 3 months. Most [...] Reviewed Old medical records. Nursing notes. Previous [facility] ED visits for similar complaints Laboratory Evaluation Results Procedure Component Value Ref Range Date/Time POC cardiac troponin [[id number]] Collected: 12/27/14 1132 Order Status: Completed Updated: 12/27/14 1147 POC CARDIAC TROPONIN 0.01 0.00 - 0.10 ng/mL Cardiac Panel [[id number]] (Abnormal) Collected: 12/27/14 0816 Order Status: Completed [...] 3.6 ng/mL CK-MB Index 3.3 D Dimer,Quantitative [[id number]] (Abnormal) Collected: 12/27/14815 Order Status: Completed Updated: 12/27/14851 D DIMER, QUANTITATIVE 0.61 (H) 0.19 - 0.50 mg/L FEU POC cardiac troponin [[id number]] Collected: 12/27/14820 Order Status: Completed Updated: 12/27/1436 [...] set. 3-D reconstructions were performed using the [facility] 3-D softw are and sent to PACS. [...] New Prescriptions No new medications Dictation software, [employer], used which may contain error for similar [...] 12/27/14807 Date of Service: 12/27/14807 Status: Signed Field Support Technician: Gilberto Plunkett RN (Registered Nurse) Bed: 09 Expected date: Expected time: Means of arrival: Comments: 1723 docume nted in this encounter Plan of Treatment +--------+---------+ + + + | Date | Type | Specialty | Care Team | Description | +--------+---------+ + + + | 09/10/ | Office | Geriatric Medicine | Mireya Pack, | | | 2019 | Visit | | PLAYGROUND EQUIPMENT ERECTOR [address] | | | | | | [address] [place], | | | | | | [place] [address] | | | | | | [phone] | | | | | | | | +--------+---------+ + + + | 09/29/ | Office | Urology | Mireya Pack, | | | 2019 | Visit | | PLAYGROUND EQUIPMENT ERECTOR [address] | | | | | | [address] [place], | | | | | | [place] [address] | | | | | | [phone] | | | | | | | | | | | | Toy Wild, DO | | | | | | [address] | | | | | | [place] [address] | | | | | | [phone] | | | | | | | [...] + + | Historically converted procedure from [facility] | EXTERNAL LAB | + + [...] | | | Fingerstick | performed at [facility];[address] | | LAB | | | | [address];[place] | | | | | | [address] | | | | + + + [...] | | | | | [place] [address] | | | | + + + + + + | Non- | 4.64Comment: Testing | 4.20 - 5.70 | EXTERNAL | | | Red Blood | performed at [facility], [address] | M/uL | LAB | | | Cells | [address], | | | | | Counted | [place] [address] | | | | + + + + + + | Hemoglobin | 11.9 (L)Comment: Testing | 13.2 - 17.0 | EXTERNAL | | | | performed at [facility], [address] | g/dL | LAB | | | | [address], | | | | | | [place] [address] | | | | + + + + + + | Hematocrit, | 36.0 (L)Comment: Testing | 39.0 - 50.0 % | EXTERNAL | | | POC | performed at [facility], [address] | | LAB | | | | [address], | | | | | | [place] [address] | | | | + + + + + + | MCV | 77.5 (L)Comment: Testing | 80.0 - 100.0 fl | EXTERNAL | | | | performed at [facility], [address] | | LAB | | | | [address], | | | | | | [place] [address] | | | | + + + + + + | MCH | 25.6 (L)Comment: Testing | 27.0 - 34.0 pg | EXTERNAL | | | | performed at [facility], [address] | | LAB | | | | [address], | | | | | | [place] [address] | | | | + + + + + + | MCHC | 33.1Comment: Testing | 32.0 - 35.5 | EXTERNAL | | | | performed at [facility], [address] | g/dL | LAB | | | | [address], | | | | | | [place] [address] | | | | + + + + + + | RDW-CV | 45.1Comment: Testing | 37 - 53 fl | EXTERNAL | | | | performed at [facility], [address] | | LAB | | | | [address], | | | | | | [place] [address] | | | | + + + + + + | Platelet | 85 (L)Comment: Testing | 150 - 400 K/uL | EXTERNAL | | | Count | performed at [facility], [address] | | LAB | | | Plasma | [address], | | | | | | [place] [address] | | | | + + + + + + | MPV | 8.1Comment: Testing | fl | EXTERNAL | | | | performed at [facility], [address] | | LAB | | | | [address], | | | | | | [place] [address] | | | | + + + + + + | Differentia | AUTOMATEDComment: | | EXTERNAL | | | l Type | Testing performed at | | LAB | | | | [facility], [address] | | | | | | [place] | | | | | | [address] | | | | + + + + + + | % Segmented | 54.99Comment: Testing | % | EXTERNAL | | | | performed at [facility], [address] | | LAB | | | Neutrophils | [address], | | | | | | [place] [address] | | | | + + + + + + | % | 29.03Comment: Testing | % | EXTERNAL | | | Lymphocytes | performed at [facility], [address] | | LAB | | | | [address], | | | | | | [place] [address] | | | | + + + + + + | % Monocytes | 8.39Comment: Testing | % | EXTERNAL | | | | performed at [facility], [address] | | LAB | | | | [address], | | | | | | [place] [address] | | | | + + + + + + | % | 6.66Comment: Testing | % | EXTERNAL | | | Eosinophils | performed at [facility], [address] | | LAB | | | | [address], | | | | | | [place] [address] | | | | + + + + + + | % Basophils | 0.93Comment: Testing | % | EXTERNAL | | | | performed at [facility], [address] | | LAB | | | | [address], | | | | | | [place] [address] | | | | + + + + + + | Absolute | 5.04Comment: Testing | 1.90 - 7.40 | EXTERNAL | | | Segmented | performed at [facility], [address] | K/uL | LAB | | | Neutrophils | [address], | | | | | | [place] [address] | | | | + + + + + + | Absolute | 2.66Comment: Testing | 1.00 - 3.90 | EXTERNAL | | | Lymphocytes | performed at [facility], [address] | K/uL | LAB | | | | [address], | | | | | | [place] [address] | | | | + + + + + + | Absolute | 0.77Comment: Testing | 0.00 - 0.80 | EXTERNAL | | | Monocytes | performed at [facility], [address] | K/uL | LAB | | | | [address], | | | | | | [place] [address] | | | | + + + + + + | Absolute | 0.61 (H)Comment: Testing | 0.00 - 0.50 | EXTERNAL | | | Eosinophils | performed at [facility], [address] | K/uL | LAB | | | | [address], | | | | | | [place] [address] | | | | + + + + + + | Absolute | 0.09Comment: Testing | 0.00 - 0.10 | EXTERNAL | | | Basophils | performed at [facility], [address] | K/uL | LAB | | | | [address], | | | | | | [place] [address] | | | | + + [...] EXTERNAL | | | | performed at [facility], [address] | | LAB | | | | [address], | | | | | | [place] [address] | | | | + + [...] | | | | | [place] [address] | | | | + + + [...] | EXTERNAL | | | A1c | Lao Diabetes | | LAB | | | [...] | | | | | performed at [facility], [address] | | | | | | [address] [employer] [address], | | | | | | [place] [address] | | | | + + + [...] | | | | | performed at [facility], [address] | | | | | | [place], | | | | | | [place] [address] | | | | + + + [...] | | | | | [place] [address] | | | | + + + + + + | Triglycerid | 823 (H)Comment: Testing | mg/dL | EXTERNAL | | | es | performed at [facility], [address] | | LAB | | | | [address], | | | | | | [place] [address] | | | | + + + + + + | HDL | 19 (L)Comment: Testing | mg/dL | EXTERNAL | | | | performed at [facility], [address] | | LAB | | | | [address], | | | | | | [place] [address] | | | | + + + + + + | LDL, | LDL NOT VALID WHEN TRIG | mg/dL | EXTERNAL | | | Calculated | >400 mg/dLComment: | | LAB | | | | Testing performed at | | | | | | [facility], [address] [facility] | | | | | | [address], [place] | | | | | | [address] | | | | + + + [...] | | | | | [place] [address] | | | | + + + + + + | K | 4.1Comment: Testing | 3.5 - 4.9 | EXTERNAL | | | | performed at [facility], [address] | mmol/L | LAB | | | | [address], | | | | | | [place] [address] | | | | + + + + + + | Cl | 104Comment: Testing | 99 - 109 mmol/L | EXTERNAL | | | | performed at [facility], [address] | | LAB | | | | [address], | | | | | | [place] [address] | | | | + + + + + + | CO2 | 26Comment: Testing | 23 - 32 mmol/L | EXTERNAL | | | | performed at [facility], [address] | | LAB | | | | [address], | | | | | | [place] [address] | | | | + + + + + + | Anion Gap | 10Comment: Testing | 5 - 20 mmol/L | EXTERNAL | | | | performed at [facility], [address] | | LAB | | | | [address], | | | | | | [place] [address] | | | | + + + + + + | Glucose, | 250 (H)Comment: Testing | 65 - 99 mg/dL | EXTERNAL | | | Fasting | performed at [facility], [address] | | LAB | | | | [address], | | | | | | [place] [address] | | | | + + + + + + | BUN | 17Comment: Testing | 8 - 25 mg/dL | EXTERNAL | | | | performed at [facility], [address] | | LAB | | | | [address], | | | | | | [place] [address] | | | | + + + + + + | Creatinine | 0.86Comment: Testing | 0.70 - 1.30 | EXTERNAL | | | | performed at [facility], [address] | mg/dL | LAB | | | | [address], | | | | | | [place] [address] | | | | + + + + + + | BUN/Creatin | 20Comment: Testing | | EXTERNAL | | | ine Ratio | performed at [facility], [address] | | LAB | | | | [address], | | | | | | [place] [address] | | | | + + + + + + | Calcium | 8.9Comment: Testing | 8.5 - 10.5 | EXTERNAL | | | | performed at [facility], [address] | mg/dL | LAB | | | | [address], | | | | | | [place] [address] | | | | + + + + + + | Protein, | 6.0 (L)Comment: Testing | 6.3 - 8.2 g/dL | EXTERNAL | | | Total | performed at [facility], [address] | | LAB | | | | [address], | | | | | | [place] [address] | | | | + + + + + + | Albumin | 3.1 (L)Comment: Testing | 3.3 - 4.8 g/dL | EXTERNAL | | | | performed at [facility], [address] | | LAB | | | | [address], | | | | | | [place] [address] | | | | + + + + + + | Globulin | 2.9Comment: Testing | 1.3 - 4.9 g/dL | EXTERNAL | | | | performed at [facility], [address] | | LAB | | | | [address], | | | | | | [place] [address] | | | | + + + + + + | A/G Ratio | 1.1Comment: Testing | 1.0 - 2.4 | EXTERNAL | | | | performed at [facility], [address] | | LAB | | | | [address], | | | | | | [place] [address] | | | | + + + + + + | Bilirubin | 0.3Comment: Testing | 0.1 - 1.5 mg/dL | EXTERNAL | | | Total | performed at [facility], [address] | | LAB | | | | [address], | | | | | | [place] [address] | | | | + + + + + + | ALP, | 91Comment: Testing | 35 - 115 U/L | EXTERNAL | | | External | performed at [facility], [address] | | LAB | | | | [address], | | | | | | [place] [address] | | | | + + + + + + | AST | 19Comment: Testing | 10 - 45 U/L | EXTERNAL | | | | performed at [facility], [address] | | LAB | | | | [address], | | | | | | [place] [address] | | | | + + + + + + | ALT | 13Comment: Testing | 10 - 65 U/L | EXTERNAL | | | | performed at [facility], [address] | | LAB | | | | [address], | | | | | | [place] [address] | | | | + + + [...] | | | | | | [address], | | | | | | [place] [address] | | | | + + + [...] | | | Fingerstick | performed at [facility];[address] | | LAB | | | | [address];[place] | | | | | | [address] | | | | + + + [...] | | | Fingerstick | performed at [facility];[address] | | LAB | | | | [address];[place], [place] | | | | | | [address] | | | | + + + [...] [facility];[address] | | | | | | [address];[place], [place] | | | | | | [address] | | | | + + + [...] + + | Historically converted procedure from [facility] environment | EXTERNAL LAB | [...] were performed | | | using the [facility] 3-D software and sent to PACS. IV [...] | | reconstructions were performed using the [facility] 3-D software and sent to PACS.IV | [...] [facility];[address] | K/uL | LAB | | | | [address];[place], [place] | | | | | | [address] | | | | + + + + + -+ | Non- | 5.31Comment: Testing | 4.20 - 5.70 | EXTERNAL | | | Red Blood | performed at [facility];[address] | M/uL | LAB | | | Cells | [address];[place] | | | | | Counted | [address] | | | | + + + + + -+ | Hemoglobin | 12.8 (L)Comment: Testing | 13.2 - 17.0 | EXTERNAL | | | | performed at [facility];[address] | g/dL | LAB | | | | [address];[place] | | | | | | [address] | | | | + + + + + -+ | Hematocrit, | 40.0Comment: Testing | 39.0 - 50.0 % | EXTERNAL | | | POC | performed at [facility];[address] | | LAB | | | | [address];[place] | | | | | | [address] | | | | + + + + + -+ | MCV | 75.3 (L)Comment: Testing | 80.0 - 100.0 fl | EXTERNAL | | | | performed at [facility];[address] | | LAB | | | | [address];[place] | | | | | | [address] | | | | + + + + + -+ | MCH | 24.1 (L)Comment: Testing | 27.0 - 34.0 pg | EXTERNAL | | | | performed at [facility];[address] | | LAB | | | | [address];[place] | | | | | | [address] | | | | + + + + + -+ | MCHC | 32.0Comment: Testing | 32.0 - 35.5 | EXTERNAL | | | | performed at [facility];888 | g/dL | LAB | | | | [address];[place] | | | | | | [address] | | | | + + + + + -+ | RDW-CV | 43.8Comment: Testing | 37 - 53 fl | EXTERNAL | | | | performed at [facility];[address] | | LAB | | | | [address];[place] | | | | | | [address] | | | | + + + + + -+ | Platelet | 291Comment: Testing | 150 - 400 K/uL | EXTERNAL | | | Count | performed at [facility];[address] | | LAB | | | Plasma | [address];[place] | | | | | | [address] | | | | + + + + + -+ | MPV | 7.8Comment: Testing | fl | EXTERNAL | | | | performed at [facility];[address] | | LAB | | | | [address];[place] | | | | | | [address] | | | | + + + + + -+ | Differentia | AUTOMATEDComment: | | EXTERNAL | | | l Type | Testing performed at | | LAB | | | | [facility];[address] | | [address];[place] [address] | | | | + + + + + -+ | % Segmented | 47.82Comment: Testing | % | EXTERNAL | | | | performed at [facility];[address] | | LAB | | | Neutrophils | [address];[place] | | | | | | [address] | | | | + + + + + -+ | % | 33.12Comment: Testing | % | EXTERNAL | | | Lymphocytes | performed at [facility];[address] | | LAB | | | | [address];[place] | | | | | | [address] | | | | + + + + + -+ | % Monocytes | 11.18Comment: Testing | % | EXTERNAL | | | | performed at [facility];[address] | | LAB | | | | [address];[place] | | | | | | [address] | | | | + + + + + -+ | % | 7.17Comment: Testing | % | EXTERNAL | | | Eosinophils | performed at [facility];[address] | | LAB | | | | [address];[place] | | | | | | [address] | | | | + + + + + -+ | % Basophils | 0.71Comment: Testing | % | EXTERNAL | | | | performed at [facility];[address] | | LAB | | | | [address];[place] | | | | | | [address] | | | | + + + + + -+ | Absolute | 5.08Comment: Testing | 1.90 - 7.40 | EXTERNAL | | | Segmented | performed at [facility];888 | K/uL | LAB | | | Neutrophils | [address];[place] | | | | | | [address] | | | | + + + + + -+ | Absolute | 3.52Comment: Testing | 1.00 - 3.90 | EXTERNAL | | | Lymphocytes | performed at [facility];[address] | K/uL | LAB | | | | [address];[place] | | | | | | [address] | | | | + + + + + -+ | Absolute | 1.19 (H)Comment: Testing | 0.00 - 0.80 | EXTERNAL | | | Monocytes | performed at [facility];[address] | K/uL | LAB | | | | [address];[place] | | | | | | [address] | | | | + + + + + -+ | Absolute | 0.76 (H)Comment: Testing | 0.00 - 0.50 | EXTERNAL | | | Eosinophils | performed at [facility];[address] | K/uL | LAB | | | | [address];[place] | | | | | | [address] | | | | + + + + + -+ | Absolute | 0.08Comment: Testing | 0.00 - 0.10 | EXTERNAL | | | Basophils | performed at [facility];[address] | K/uL | LAB | | | | [address];[place] | | | | | | [address] | | | | + + + + + -+ | RBC | 2+Comment: MICRONORMAL | | EXTERNAL | | | Morphology | PLT MORPHTesting | | LAB | | | | performed at [facility];[address] | | | | | | [address];[place] | | | | | | [address] | | | | | | | | | | + + + + + -+ | Platelet | ADEQUATEComment: Testing | | EXTERNAL | | | Estimate | performed at [facility];[address] | | LAB | | | | [address];[place] | | | | | | [address] | | | | + + + + + -+ | Na | 141Comment: Testing | 135 - 143 | EXTERNAL | | | | performed at [facility];888 | mmol/L | LAB | | | | [address];[place] | | | | | | [address] | | | | + + + + + -+ | K | 4.2Comment: Testing | 3.5 - 4.9 | EXTERNAL | | | | performed at [facility];888 | mmol/L | LAB | | | | [address];[place] | | | | | | [address] | | | | + + + + + -+ | Cl | 106Comment: Testing | 99 - 109 mmol/L | EXTERNAL | | | | performed at [facility];[address] | | LAB | | | | [address];[place] | | | | | | [address] | | | | + + + + + -+ | CO2 | 31Comment: Testing | 23 - 32 mmol/L | EXTERNAL | | | | performed at [facility];[address] | | LAB | | | | [address];[place] | | | | | | [address] | | | | + + + + + -+ | Anion Gap | 9Comment: Testing | 5 - 20 mmol/L | EXTERNAL | | | | performed at [facility];[address] | | LAB | | | | [address];[place] | | | | | | [address] | | | | + + + + + -+ | Glucose, | 184 (H)Comment: Testing | 65 - 99 mg/dL | EXTERNAL | | | Fasting | performed at [facility];[address] | | LAB | | | | [address];[place] | | | | | | [address] | | | | + + + + + -+ | BUN | 12Comment: Testing | 8 - 25 mg/dL | EXTERNAL | | | | performed at [facility];[address] | | LAB | | | | [address];[place] | | | | | | [address] | | | | + + + + + -+ | Creatinine | 0.77Comment: Testing | 0.70 - 1.30 | EXTERNAL | | | | performed at [facility];888 | mg/dL | LAB | | | | [address];[place] | | | | | | [address] | | | | + + + + + -+ | BUN/Creatin | 16Comment: Testing | | EXTERNAL | | | ine Ratio | performed at [facility];[address] | | LAB | | | | [address];[place] | | | | | | [address] | | | | + + + + + -+ | Calcium | 8.5Comment: Testing | 8.5 - 10.5 | EXTERNAL | | | | performed at [facility];888 | mg/dL | LAB | | | | [address];[place] | | | | | | [address] | | | | + + + + + -+ | Protein, | 7.4Comment: Testing | 6.3 - 8.2 g/dL | EXTERNAL | | | Total | performed at [facility];[address] | | LAB | | | | [address];[place] | | | | | | [address] | | | | + + + + + -+ | Albumin | 3.2 (L)Comment: Testing | 3.3 - 4.8 g/dL | EXTERNAL | | | | performed at [facility];[address] | | LAB | | | | [address];[place] | | | | | | [address] | | | | + + + + + -+ | Globulin | 4.2Comment: Testing | 1.3 - 4.9 g/dL | EXTERNAL | | | | performed at [facility];[address] | | LAB | | | | [address];[place] | | | | | | [address] | | | | + + + + + -+ | A/G Ratio | 0.8 (L)Comment: Testing | 1.0 - 2.4 | EXTERNAL | | | | performed at [facility];[address] | | LAB | | | | [address];[place] | | | | | | [address] | | | | + + + + + -+ | Bilirubin | 0.4Comment: Testing | 0.1 - 1.5 mg/dL | EXTERNAL | | | Total | performed at [facility];[address] | | LAB | | | | [address];[place] | | | | | | [address] | | | | + + + + + -+ | ALP, | 136 (H)Comment: Testing | 35 - 115 U/L | EXTERNAL | | | External | performed at [facility];[address] | | LAB | | | | [address];[place] | | | | | | [address] | | | | + + + + + -+ | AST | 19Comment: Testing | 10 - 45 U/L | EXTERNAL | | | | performed at [facility];[address] | | LAB | | | | [address];[place] | | | | | | [address] | | | | + + + + + -+ | ALT | 24Comment: Testing | 10 - 65 U/L | EXTERNAL | | | | performed at [facility];[address] | | LAB | | | | [address];[place] | | | | | | [address] | | | | + + + [...] | | | | | [address];[place] [address] | | | | + + + + + -+ | CK, Total | 110Comment: Testing | 55 - 400 U/L | EXTERNAL | | | | performed at [facility];[address] | | LAB | | | | [address];[place] | | | | | | [address] | | | | + + + [...] [facility];[address] | | | | | | [address];[place] | | | | | | [address] | | | | + + + + + -+ | aPTT, | 25Comment: Testing | 23 - 32 seconds | EXTERNAL | | | Patient | performed at [facility];[address] | | LAB | | | | [address];[place] | | | | | | [address] | | | | + + + + + -+ | CK-MB | 3.6Comment: Testing | 0.5 - 3.6 ng/mL | EXTERNAL | | | | performed at [facility];[address] | | LAB | | | | [address] [facility];[place], [place] | | | | | | [address] | | | | + + + [...] at [facility] | | | | | | [facility];[place], [place] | | | | | | [address] | | | | + + + [...]
--- OUTSIDE RECORDS SUMMARY | ~2019-09-09 | XMS | Encounter Summary ---
Demographics + + + | Address | [address] | | | [address] | + + + | Home Phone [...] Sammi Kohler | ECON | [place] [address] | | + + + + + Care Team Providers + +------+ + | Care Outside Production Inspector Name | Role | Phone | [...] | | | | | | BLVD [facility] | [place] | | | | | | [address] | [address] | | | | | | | [place], | | | | | | [address] | [place] [address] | | | | | | Phone: | Phone: | | | | | | [phone] | [phone] | | | | | | Fax: | Fax: | | | | | | [phone] | [phone] | + + + + + + + Encounter Details +--------+ + + + + | Date | Type | Department | Care Team | Description | +--------+ + + + + | 09/01/ | Anti-coag | [facility] | Mireya Pack, | Atrial fibrillation | | 2020 | visit | CENTER | AVIONICS SYSTEMS TECHNICIAN [address] | with RVR (HCC) | | | | ANTICOAGULATION | [address] [place], | | | | | CL[facility] | [place] [address] | | | | | [address] | [phone] | | | | | | | | | | | [address] | Kathryn Andrade, | | | | | [phone] | TUCKPOINTER CLEANER CAULKER [address] | | | | | | [address] | | | | | | [phone] | | | | | | | [...] from the original. ANTICOAGULATION AFTER VISIT SUMMARY [facility] DAILY DOSAGE REMINDER Date: 09/02/2019 [...] | | 2019 | Visit | | AVIONICS SYSTEMS TECHNICIAN [address] | | | | | | [facility] [address] [place], | | | | | | [place] [address] | | | | | | [phone] | | | | | | | | +--------+---------+ + + + | 09/29/ | Office | Urology | Mireya Pack, | | | 2019 | Visit | | AVIONICS SYSTEMS TECHNICIAN [address] | | | | | | [facility] [address] [place], | | | | | | [place] [address] | | | | | | [phone] | | | | | | | | | | | | Toy Wild, DO | | | | | | [address] | | | | | | [place] [address] | | | | | | [phone] | | | | | | | [...] | | | | PDT | RVR ([facility]) | results section. | + [...]
--- OUTSIDE RECORDS SUMMARY | ~2019-09-09 | XMS | Encounter Summary ---
Demographics + + + | Address | [address] | | | [place] [address] | + + + | Home Phone [...] Sammi Kohler | ECON | [place] [address] | | + + + + + Care Team Providers + +------+ + | Care Vp Name | Role | Phone | + [...] + + | 07/05/ | Emergency | [facility] | Breanne Hurtado, | Hypertension, | | 2019 | | MEDICAL CENTER | DO [address] | unspecified type | | | | EMERGENCY CENTER | [place] [address] | (Primary Dx); | | | | [address] | [phone] | Difficulty obtaining | | | | [place], [place] | | medication; Fall, | | | | [address] | Zach Tena MD | initial encounter | | | | [phone] | [address] | | | | | | [place] [address] | | | | | | [phone] | | | | | | | [...] through Care Everywhere.High Blood Pres sure, Controlling (Greek)Falls, Preventing, Staying Active (Greek)documented in this enc ounter Medications at Time [...] | | use of insulin ([facility]) | | | | | [...] Brynn Frazier RN - 07/06/2019 11:57 AM PDTThis RN observes patient yelling at staff and be coming agitated. Patient slams sliding door, security to bedside. Emili Gonzalez RN - 07/06/2019 11:23 AM PDTP t waiting for scripts to be filled, becoming increasingly impatient with staff. Explained to pt multiple times we are trying to assist him with filling medications and then will call nadege taveras ride for ride home. Pt stating we are not doing this fast enough Vannessa Arzola Technologis t - 07/06/2019 7:26 AM PDTEDT wore face mask while in patient's room Zach Smyth MD - 6:01 AM PDT [facility] Department of Emergency Medicine Diagnosis: 1. Hypertension, unspecified type 2. Difficulty obtaining medication 3. Fall, initial encounter Final Impression: 1. Hypertension, unspecified type 2. Difficulty obtaining medication 3. Fall, initial encounter Follow-up Information Holly Pack NP. Schedule an appointment as soon as possible for a visit in 1 week. Specialty: Nurse Practitioner - Primary Care Contact information: [address] [place] [address] [facility] [id number] Go to [facility]. Specialty: Emergency Medicine Why: If symptoms worsen Contact information: [address] [facility] [address] Discharge Medication List as of 07/06/2019 [...] Anxiety ARF (acute renal failure) ([facility]) 03/02/2013 Atrial fibrillation (HCC) Basal cell carcinoma 09/26/2012 arm and back COPD (chronic obstructive pulmonary disease) ([facility]) 03/02/2013 hypoxemia on 2 lts nc Depression Development delay Diabetes mellitus type II DVT (deep venous thrombosis) ([facility]) 03/29/2018 Facial droop 07/08/2013 GIB (gastrointestinal bleeding) 03/02/[address] Nur, rectal ulcers, nodule of GE junction Hypercholesterolemia 07/08/2013 Hyperlipidemia Hypertension senior care (current) use of 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 Obesity, Class [...] Location: [facility] ENDOSCOPY; Service: Gastroen terology; Laterality: N/A; HERNIA REPAIR 07/03/2013 Procedure: LAPAROSCOPIC - HERNIA - INCISIONAL; Surgeon: Jevon Vargas DO; Location: [facility] MAIN OR; Service: General; Laterality: N/A; KNEE SURGERY rt knee, patella LEG SURGERY LLE OTHER SURGICAL HISTORY UNLISTED PROCEDURE ARTHROSCOPY OTHER SURGICAL HISTORY Left 05/05/2014 SKIN LESION EXCISION - Procedure: EXCISION - LESION - FROZEN SECTION; Surgeon: Sy murcia MD; Location: [facility] MAIN [...] MD; Location: [facility] END[facility]; Se rvice: Gastroenterology; Laterality: N/A; Current Medications WOOD GRINDER Home Medications Medication Sig apixaban (ELIQUIS) 5 [...] Lives alone x 1 wk, moved from [facility], , 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 2 falls [...] the patient. 9:57 AM Spoke to case fitter who recommends providing a 10 day supply [...] Contact information: [address] [place] [address] [facility] [id number] Go to [facility]. Specialty: Emergency Medicine Why: If symptoms worsen Contact information: [address] [facility] [address] Discharge Medication List as of 07/06/2019 [...] time: 5:17 AM Means of arrival: Comments: 1721 documented in thi s encounter Miscellaneous Notes [...] | | 2019 | Visit | | STREETCAR MOTORMAN [address] | | | | | | [address] [place], | | | | | | [place] [address] | | | | | | [phone] | | | | | | | | +--------+---------+ + + + | 09/29/ | Office | Urology | Holly Pack, | | | 2019 | Visit | | STREETCAR MOTORMAN [address] | | | | | | [address] [place], | | | | | | [place] [address] | | | | | | [phone] | | | | | | | | | | | | Toy Wild, | | | | | | [address] | | | | | | [place] [address] | | | | | | [phone] | | | | | | | [...] M?MRN: | | | | | | [id number] | | | [id number] | | | riteri | | | [...] | | [facility] | | | [place] | | | [place] | | | [...] | | [facility] | | | [place] | | | [place] | | | [...] | | | [place] | | | Toll Testboard Worker | | | al | | | [...] | | | [place] | | | Toll Testboard Worker | | | al | | | [...] | | | [place], | | | STREETCAR MOTORMAN | | | Nurse | | | [...] Testing | 65 - 99 mg/dL | [facility] | | | POC | performed at [facility];[address] | | LABORATORY | | | | [address];[place] | | | | | | [address] | | | | + + + + + + + + | Specimen | + + | | + + + + + + + | Performing | Address | City/State/Zipcode | Phone Number | | Organization | | | | + + + + + | [facility] | [address] | [place] [address] | [phone] | + + + + + Culture, [...] RESULT | Testing performed at | | [facility] | | | | [facility], [address] | | LABORATORY | | | | [place] | | | | | | [id number]: Testing | | | | | | performed at [facility], [address] | | | | | | [facility] [place], | | | | | | [place] [address] | | | | + + + [...] | + + + + + | [facility] | [address] | [place] [address] | [phone] | + + + + + Urinalysis [...] - 1.030 | [facility] | | | [place], | | | LABORATORY | | | [...] | | | Urine | performed at [facility];[address] | | LABORATORY | | | | [address];[place] | | | | | | [address] | | | | + + + + + + + + | Specimen | + + | Urine | + + + + + + + | Performing | Address | City/State/Zipcode | Phone Number | | Organization | | | | + + + + + | [facility] | [address] | [place] [address] | [phone] | + + + + + ECG [...] | | | | | ONLY, -COMPUTER (373), | | | | | | book editor SANTHOSH VÁSQUEZ | | | | | | ([id number]) on 07/08/2019 | | | | | [...] [facility];[address] [facility] | | | | | | [address]vd;[place] [address] | | | | + + + + + + + + | Specimen | + + | Blood | + + + + + + + | Performing | Address | City/State/Zipcode | Phone Number | | Organization | | | | + + + + + | [facility] | [address] | [place] [address] | [phone] | + + + + + Ketones, Serum (07/06/2019 5:58 AM PDT) + + + + + + | Component | Value | Ref Range | Performed | Pathologist | | | | | At | Signature | + + + + + + | Ketones, | NEGATIVEComment: Testing | NEG | [facility] | | | Blood | performed at [facility];[address] | | LABORATORY | | | | [address];[place] | | | | | | [address] | | | | + + + + + + + + | Specimen | + + | Blood | + + + + + + + | Performing | Address | City/State/Zipcode | Phone Number | | Organization | | | | + + + + + | [facility] | [address] | [place] [address] | [phone] | + + + + + Comprehensive [...] 12 | 10 - 65 U/L | [facility] [...] at [facility] | | | | | | [facility];[place], [place] | | | | | | [address] | | | | + + + + + + + + | Specimen | + + | Blood | + + + + + + + | Performing | Address | City/State/Zipcode | Phone Number | | Organization | | | | + + + + + | [facility] | [address] [place] | [place] [address] | [phone] | + + + + + CBC [...] | | | Absolute | performed at [facility];[address] | LABORATORY | | | | [address];[place], [place] | | | | | | [address] | | | | + + + + + + + + | Specimen | + + | Blood | + + + + + + + | Performing | Address | City/State/Zipcode | Phone Number | | Organization | | | | + + + + + | [facility] | [address] | [place] [address] | [phone] | + + + + + documented [...]
--- OUTSIDE RECORDS SUMMARY | ~2019-09-09 | XMS | Encounter Summary ---
Demographics + + + | Address | [address] | | | [place] [address] | + + + | Home Phone [...] Sammi Kohler | ECON | [place] [address] | | + + + + + Care Team Providers + +------+ + | Care Tank Processor Name | Role | Phone | + +------+ + | Mireya Pack NP | PCP | | + +------+ + Encounter Details +--------+---------+ + + + | Date | Type | Department | Care Team | Description | +--------+---------+ + + + | 08/20/ | Office | [facility] | Mireya Pack, | Chronic a-fib (HCC) | | 2020 | Visit | [facility] | CARE MGR [address] | (Primary Dx); | | | | [address] | [address] [place], | Essential | | | | [place], [place] | [place] [address] | hypertension; | | | | [address] | [phone] | Chronic obstructive | | | | [phone] | | pulmonary disease, | | | | | | unspecified COPD | | | | | | type (HCC); | | | | | | Irregular bowel | | | | | | habits | +--------+---------+ + + + Social [...] this encounter Progress Mireya Pérez NP - 08/21/2019 2:30 PM PDTFormatting of this note might be different fr om the original. Subjective: Patient ID: Kevyn Guzman is a 63 y.o. male You have chosen to receive care through the use of telemedicine. Telemedicine enables [facility] care providers at different locations to [...] agrees to telephone/virtual appointment, Time appointment started: 1310 Significant history of: Past Medical History: Diagnosis [...] INCISIONAL; Surgeon: Jevon Vargas DO; Location: [facility] MAIN OR; Service: General; Laterality: N/A; KNEE SURGERY rt knee, patella LEG SURGERY LLE OTHER SURGICAL HISTORY UNLISTED PROCEDURE ARTHROSCOPY OTHER SURGICAL HISTORY Left 05/05/2014 SKIN LESION EXCISION - Procedure: EXCISION - LESION - FROZEN SECTION; Surgeon: Sy murcia MD; Location: [facility] MAIN OR; [...] Lives alone x 1 wk, moved from [facility], , 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 2 [...] Inhaler 0 ARIPiprazole (ABILIFY) 5 mg tablet Take [...] or as directed by coumadin clinic b shiv on INR. 30 tablet 11 No current facility-administered medications for this visit. HPI Patient reports that he has had intermittent palpiations < once weekly. Last time this occu rred he took BP/hr and HR was 70-80. BP today 166/80. Mild dizzy today but feels good. Patient's medications, allergies, past medical, surgical, social and family histories were obtained and reviewed as appropriate. Review of Systems Constitutional: Negative for activity change, appetite change, chills, fatigue, fever and u nexpected weight change. Respiratory: Negative for cough, chest tightness, shortness of breath and wheezing. Cardiovascular: Positive for palpitations. Negative for chest pain and leg swelling. Gastrointestinal: Positive for constipation and diarrhea. Negative for abdominal distention and abdominal pain. Genitourinary: Negative for difficulty urinating. Musculoskeletal: Negative for arthralgias, back pain and gait problem. Skin: Negative for rash and wound. Neurological: Positive for dizziness. Negative for weakness. Psychiatric/Behavioral: Positive for sleep disturbance. Negative for dysphoric mood. The pa aki is not nervous/anxious. Objective: Physical Exam Lab Results Component Value Date NA 138 08/06/2019 CL 104 08/06/2019 K 3.4 (L) 08/06/2019 CO2 23 08/06/2019 BUN 13 08/06/2019 EGFR >60 08/06/2019 GLUF 292 (H) 09/21/2018 GLOB 2.7 09/21/2018 BILITOT 0.5 09/21/2018 AST 23 08/06/2019 ALT 16 08/06/2019 Lab Results Component Value Date WBC 10.42 08/06/2019 HGB 13.8 08/06/2019 HCT 42.8 08/06/2019 MCV 82.8 08/06/2019 PLT 280 08/06/2019 Lab Results Component Value Date CHOL 182 [...] 8.9 (H) 07/25/2019 No components found for: [id number], PTHINT No results found for: [id number] Lab Results Component Value Date TSH 2.780 03/27/2019 No results found for: IRON, TIBC, FERRITIN . No results found for: FERRITIN Assessment/Plan: See Assessment and plan documented in separate progress note in this same encounter Time appointment completed: 1336 20 1:38 PM Mireya James NP - 08/21/2019 2:30 PM PDTFormatting of this note might b e different from the original. Assessment/Plan: Diagnoses and all orders for this visit: Chronic a-fib (HCC) Rate controlled on metoprolol, patient reports compliant with warfarin and understanding of dietary considerations while on warfarin. Essential hypertension Elevated Change from PRN to scheduled: - hydrALAZINE (APRESOLINE) 25 mg tablet; Take 1 tablet by mouth 2 times daily. Chronic obstructive pulmonary disease, unspecified COPD type (HCC) Stable Resume when insurance coverage allows: - albuterol 90 mcg/puff inhaler; Inhale 2 puffs into the lungs every 6 hours as needed for Wheezing. - budesonide-formoterol (SYMBICORT) 160-4.5 mcg/puff inhaler; Inhale 2 puffs into the l ungs 2 times daily. Irregular bowel habits - psyllium, sugar free, (METAMUCIL FIBER) packet; Take 1 packet by mouth Daily. Clinic [facility] please fax AVS to home health nurse and this Progress note. Request that patient pill pack get updated to reflect hydralazine changed from PRN to twice daily documented in this e ncounter Plan of Treatment +--------+---------+ + + + | Date | Type | Specialty | Care Team | Description | +--------+---------+ + + + | 09/10/ | Office | Geriatric Medicine | Mireya Pack, | | 2019 | Visit | | CARE MGR [address] | | | | | | [address] [place], | | | | | | [place] [address] | | | | | | [phone] | | | | | | | | +--------+---------+ + + + | 09/29/ | Office | Urology | Mireya Pack, | | | 2020 | Visit | | CARE MGR [address] | | | | | | [address] [place], | | | | | | [place] [address] | | | | | | [phone] | | | | | | | | | | | | Toy Wild, DO | | | | | | [address] | | | | | | [place] [address] | | | | | | [phone] | | | | | | | | +--------+---------+ + + + documented as of this encounter Visit Diagnoses + + | Diagnosis | + + | Chronic a-fib (HCC) - Primary Atrial fibrillation | + + | Essential hypertension Unspecified essential hypertension | + + | Chronic obstructive pulmonary disease, unspecified COPD type (HCC) | + + | Irregular bowel habits Other specified disorder of intestines | + + documented in this encounter
--- OUTSIDE RECORDS SUMMARY | ~2019-09-09 | XMS | Encounter Summary ---
Demographics + + + | Address | [address] | | | [place] [address] | + + + | Home Phone [...] + | Sammi Kohler | ECON | [place] [address] | | + + + + + Care Team Providers + +------+ + | Care Jack Winder Name | Role | Phone | + +------+ + PCP | Unavailable | + +------+ + Encounter Details +--------+ + + + + | Date | Type | Department | Care Team | Description | +--------+ + + + + | 09/05/ | Emergency | [facility] | Kirill Hardy, | Biliary colic; | | 2012 | | [facility] | [address] | [place] | | | | [facility] | [place] [address] | | | | | [address] | [phone] | | | | | [place], [place] | | | | | | [address] | | | | | | [phone] | | | +--------+ + + + [...] Physician Filed: 09/06/12 1119 Date of Service: 09/05/12 1053 Status: Signed Nail Professional: Kirill Hardy MD (Physician) [facility] Department of Emergency Medicine 10:54 AM History [...] following: GLUCOSE 137 (*) Testing performed at [facility] [place] [address];[place] [address] Albumin 3.5 (*) Testing performed at [facility];[address] [place] [address];[place] [address] A/G 0.9 (*) Testing performed at [facility];[address] [place] [address];[place] [address] All other components within normal limits POC CLINITEK 10 - Abnormal; Notable for the following: Protein, UA 30 (*) Testing performed at [facility];[address] [place] [address];[place] [address] All other components within normal limits LIPASE I have reviewed lab results from the emergency department workup and abnormal results have been posted to the chart. Pertinent positive and negative findings have been addressed appr opriately. Radiology and EKG Evaluation Imaging Results CT Abdomen & Pelvis with contrast (Final result) Result time:09/05/12 125 Final result by Rad Results In Richard (09/05/12 12:51:31) Narrative: ONRAH GR CT ABDOMEN PELVIS W CONTRAST CT [...] recognition system. The possibility of "sound alike" credit manager errors, addition and/or deletions may occur. If there is any question about this report please contact the originating radiologist. Diagnoses Final diagnoses Biliary colic [place] abdominal pain Disposition: ED Disposition Discharge Condition at discharge: Stable Follow-up Information Follow up With Details Comments Contact Info Jevon Vargas DO tomorrow afternoon [address] [facility] [address] [facility] [address] [facility] Emergency Department If symptoms worsen [address] [facility] [address] Jerrell Gutiérrez DO Discharge Medications: New Prescriptions HYDROCODONE-ACETAMINOPHEN (NORCO) 5-325 MG PER TABLET Take 1 tablet by mouth every 6 (s ix) hours as needed for Pain. Additional Documentation Procedures Attending Note: Documentation assistance provided by Rena Emmanuel (Scribe). Information recorded by the scribe has been reviewed and validated by me. I aruna laughlin with its contents. MD Kirill Coley MD 09/06/12 1119 documente d in this encounter Plan of Treatment +--------+---------+ + + + | Date | Type | Specialty | Care Team | Description | +--------+---------+ + + + | 09/10/ | Office | Geriatric Medicine | Mireya Pack, | | | 2019 | Visit | | SENIOR ACCOUNTS PAYABLE CLERK [address] | | | | | | [address] [place], | | | | | | [place] [address] | | | | | | [phone] | | | | | | | | +--------+---------+ + + + | 09/29/ | Office | Urology | Mireya Pack, | | | 2019 | Visit | | SENIOR ACCOUNTS PAYABLE CLERK [address] | | | | | | [facility] [address] [place], | | | | | | [place] [address] | | | | | | [phone] | | | | | | | | | | | | Toy Wild, | | | | | | [address] | | | | | | [place] [address] | | | | | | [phone] | | | | | | | [...] possibility of "sound alike" | | | credit manager errors, addition and/or deletions may occur. If [...] NORAH GRCT ABDOMEN PELVIS W | | CONTRASTCT abdomen [...] system.The | | possibility of "sound alike" credit manager errors, addition and/or deletions may occur. | [...] system. | |The possibility of "sound alike" credit manager errors, addition and/or deletions may occur. If [...]
--- OUTSIDE RECORDS SUMMARY | ~2019-09-09 | XMS | Encounter Summary ---
Demographics + + + | Address | [address] | | | [place] [address] | + + + | Home Phone [...] Sammi Kohler | ECON | [place] [address] | | + + + + + Care Team Providers + +------+ + | Care Research Environmental Scientist Name | Role | Phone | + +------+ + | Mireya Pack NP | PCP | | + +------+ + Encounter Details +--------+ + + + + | Date | Type | Department | Care Team | Description | +--------+ + + + + | 16/ | Orders Only | [facility] | Conversion | | | 2019 | | CONVERSION DEP [address] | Transaction, | | | | | [address] | Provider Unknown | | | | | [place] | [phone] | | | | | [address] | | | | | | [phone] | | | +--------+ + + + [...] | | 2019 | Visit | | INFORMATION WRITER [address] | | | | | | [address] [place], | | | | | | [place] [address] | | | | | | [phone] | | | | | | | | +--------+---------+ + + + | 09/29/ | Office | Urology | Mireya Pack, | | | 2019 | Visit | | INFORMATION WRITER [address] | | | | | | [address] [place], | | | | | | [place] [address] | | | | | | [phone] | | | | | | | | | | | | Toy Wild, | | | | | | [address] | | | | | | [place] [address] | | | | | | [phone] | | | | | | | [...]
--- OUTSIDE RECORDS SUMMARY | ~2019-09-09 | XMS | Encounter Summary ---
Demographics + + + | Address | [address] | | | [place] [address] | + + + | Home Phone [...] + | Sammi Kohler | ECON | [place] [address] | | + + + + + Care Team Providers + +------+ + | Care Jet Inspector Name | Role | Phone | + +------+ + PCP | Unavailable | + +------+ + Encounter Details +--------+ + + + + | Date | Type | Department | Care Team | Description | +--------+ + + + + | 02/25/ | Emergency | [facility] | Ashu Bobo | Chest pain, | | 2016 | | MEDICAL CENTER | MD Gordon [address] | unspecified chest | | | | EMERGENCY CENTER | [address]VD [place], [place] | pain type; | | | | [address] | [address] | Subtherapeutic | | | | [place], [place] | [phone] | international | | | | [address] | | normalized ratio | | | | [phone] | | (INR) | +--------+ + + [...] 0812 Date of Service: 02/25/15731 Status: Signed Cigarette Stamper: Samson Blanchard MD (Physician) [facility] Service: Hospitalist History and Physical Date [...] FHx:mother: of tumor in the chest, father: [place] at 59, bro with [place] before 50. SHx: tobacco: non etoh: occassional drugs: none Assisted living. Prior he was at [facility] for 2 yrs. REVIEW OF SYSTEMS 12 [...] Old records reviewed on EMR. Dictation software, [employer], used which may contain error for similar [...] Notes by Ashu Bobo MD at 02/25/15 0880 Author: Ashu Bobo MD Service: -Emergency Author Type: Physician Filed: 02/25/15 0602 Date of Service: 02/25/15504 Status: Signed Cigarette Stamper: Ashu Bobo MD (Physician) Procedures Additional Documentation Procedures [facility] Department of Emergency Medicine History of Present Illness Patient Identification Norah Gr is a 59 y.o. male. Patient information was obtained from patient and EMS personnel. History/Exam limitations: none. Patient presented to the Emergency Department by: 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 108 mcg/act Historical Provider Ixecq-T-Ymxgewzisheoj (BEANO) TABS Take 150 Units by mouth [...] 100 mg by mouth nightly. Historical Provider ixjdtegsk-hdovajad-foswwkmim hydroxide-simethicone Take 40 mLs by mouth daily [...] care plan in the EMR. Laboratory Evaluation [facility] CARD PANEL W/O TRP (ED ONLY) - Abnormal; Notable for the following: MCV 74.8 (*) MCH 24.1 (*) GLUCOSE 172 (*) A/G 0.7 (*) ALK PHOS 143 (*) All other components within normal limits TROPONIN I POC CARDIAC TROPONIN 12-lead ECG: Time of exam 0504. Interpreted independently by me. Rate: 91. Rhythm: NSR. Ectopy: none. Erie: nml. Intervals: nml. Infarct/Ischemia: nonspecific flattening. T [...] 02/25/15503 Date of Service: 02/25/15503 Status: Signed Cigarette Stamper: Tatum Pratt RN (Registered Nurse) Bed: 01 Expected date: Expected time: Means of arrival: Comments: 1723 onver ivana Transaction, Provider Unknown - 02/25/2015 5:00 AM PST ED Notes by Tatum Pratt RN at 02/25/15499 Author: Tatum Pratt RN Service: (none) Author Type: Registered Nurse Filed: 02/25/15499 Date of Service: 02/25/15499 Status: Signed Cigarette Stamper: Tatum Pratt RN (Registered Nurse) Pt having [...] | | 2019 | Visit | | FINISHING AREA SUPERVISOR [address] | | | | | | [address] [place], | | | | | | [place] [address] | | | | | | [phone] | | | | | | | | +--------+---------+ + + + | 09/29/ | Office | Urology | Mireya Pack, | | | 2019 | Visit | | FINISHING AREA SUPERVISOR [address] | | | | | | [address] [place], | | | | | | [place] [address] | | | | | | [phone] | | | | | | | | | | | | Toy Wild, DO | | | | | | [address] | | | | | | [place] [address] | | | | | | [phone] | | | | | | | [...] + | Joaquin Ramos Conversion - 09/20/2018 4:04 AM PDT NORAH GRXR CHEST 2 VIEW [...] EXTERNAL | | | | performed at [facility];[address] | K/uL | LAB | | | | [address];[place] | | | | | | [address] | | | | + + + + + + | Non- | 5.62Comment: Testing | 4.20 - 5.70 | EXTERNAL | | | Red Blood | performed at [facility];[address] | M/uL | LAB | | | Cells | [address];[place] | | | | | Counted | [address] | | | | + + + + + + | Hemoglobin | 13.6Comment: Testing | 13.2 - 17.0 | EXTERNAL | | | | performed at [facility];[address] | g/dL | LAB | | | | [address];[place] | | | | | | [address] | | | | + + + + + + | Hematocrit, | 42.0Comment: Testing | 39.0 - 50.0 % | EXTERNAL | | | POC | performed at [facility];[address] | | LAB | | | | [address];[place] | | | | | | [address] | | | | + + + + + + | MCV | 74.8 (L)Comment: Testing | 80.0 - 100.0 fl | EXTERNAL | | | | performed at [facility];[address] | | LAB | | | | [address];[place] | | | | | | [address] | | | | + + + + + + | MCH | 24.1 (L)Comment: Testing | 27.0 - 34.0 pg | EXTERNAL | | | | performed at [facility];[address] | | LAB | | | | [address];[place] | | | | | | [address] | | | | + + + + + + | MCHC | 32.3Comment: Testing | 32.0 - 35.5 | EXTERNAL | | | | performed at [facility];888 | g/dL | LAB | | | | [address];[place] | | | | | | [address] | | | | + + + + + + | RDW-CV | 45.5Comment: Testing | 37 - 53 fl | EXTERNAL | | | | performed at [facility];[address] | | LAB | | | | [address];[place] | | | | | | [address] | | | | + + + + + + | Platelet | 283Comment: Testing | 150 - 400 K/uL | EXTERNAL | | | Count | performed at [facility];[address] | | LAB | | | Plasma | [address];[place] | | | | | | [address] | | | | + + + + + + | MPV | 7.6Comment: Testing | fl | EXTERNAL | | | | performed at [facility];[address] | | LAB | | | | [address];[place] | | | | | | [address] | | | | + + + + + + | Differentia | AUTOMATEDComment: | | EXTERNAL | | | l Type | Testing performed at | | LAB | | | | [facility];[address];[place] [address] | | | | + + + + + + | % Segmented | 56.47Comment: Testing | % | EXTERNAL | | | | performed at [facility];[address] | | LAB | | | Neutrophils | [address];[place] | | | | | | [address] | | | | + + + + + + | % | 29.44Comment: Testing | % | EXTERNAL | | | Lymphocytes | performed at [facility];[address] | | LAB | | | | [address];[place] | | | | | | [address] | | | | + + + + + + | % Monocytes | 10.45Comment: Testing | % | EXTERNAL | | | | performed at [facility];[address] | | LAB | | | | [address];[place] | | | | | | [address] | | | | + + + + + + | % | 3.03Comment: Testing | % | EXTERNAL | | | Eosinophils | performed at [facility];[address] | | LAB | | | | [address];[place] | | | | | | [address] | | | | + + + + + + | % Basophils | 0.61Comment: Testing | % | EXTERNAL | | | | performed at [facility];[address] | | LAB | | | | [address];[place] | | | | | | [address] | | | | + + + + + + | Absolute | 6.07Comment: Testing | 1.90 - 7.40 | EXTERNAL | | | Segmented | performed at [facility];[address] | K/uL | LAB | | | Neutrophils | [address];[place] | | | | | | [address] | | | | + + + + + + | Absolute | 3.16Comment: Testing | 1.00 - 3.90 | EXTERNAL | | | Lymphocytes | performed at [facility];[address] | K/uL | LAB | | | | [address];[place] | | | | | | [address] | | | | + + + + + + | Absolute | 1.12 (H)Comment: Testing | 0.00 - 0.80 | EXTERNAL | | | Monocytes | performed at [facility];[address] | K/uL | LAB | | | | [address];[place] | | | | | | [address] | | | | + + + + + + | Absolute | 0.33Comment: Testing | 0.00 - 0.50 | EXTERNAL | | | Eosinophils | performed at [facility];[address] | K/uL | LAB | | | | [address];[place] | | | | | | [address] | | | | + + + + + + | Absolute | 0.07Comment: Testing | 0.00 - 0.10 | EXTERNAL | | | Basophils | performed at [facility];[address] | K/uL | LAB | | | | [address];[place] | | | | | | [address] | | | | + + + + + + | RBC | 1+Comment: | | EXTERNAL | | | Morphology | HYPO2+MICRONORMAL PLT | | LAB | | | | MORPHTesting performed | | | | | | at [facility];[address] | | [address];[place] [address] | | | | | |NORMAL PLT MORPH | | | | | |Testing performed at [facility];[address] [facility];[place] [address] | | | | | | | | | | + + + + + + | Platelet | ADEQUATEComment: Testing | | EXTERNAL | | | Estimate | performed at [facility];[address] | | LAB | | | | [address];[place] | | | | | | [address] | | | | + + + + + + | Differentia | SLIDE SCANNED, AGREES | | EXTERNAL | | | l Comments | WITH AUTOMATED | | LAB | | | | RESULTS.Comment: Testing | | | | | | performed at [facility];[address] | | | | | | [address];[place] | | | | | | [address] | | | | + + + + + + | Na | 139Comment: Testing | 135 - 143 | EXTERNAL | | | | performed at [facility];[address] | mmol/L | LAB | | | | [address];[place] | | | | | | [address] | | | | + + + + + + | K | 4.0Comment: Testing | 3.5 - 4.9 | EXTERNAL | | | | performed at [facility];[address] | mmol/L | LAB | | | | [address];[place] | | | | | | [address] | | | | + + + + + + | Cl | 103Comment: Testing | 99 - 109 mmol/L | EXTERNAL | | | | performed at [facility];[address] | | LAB | | | | [address];[place] | | | | | | [address] | | | | + + + + + + | CO2 | 27Comment: Testing | 23 - 32 mmol/L | EXTERNAL | | | | performed at [facility];[address] | | LAB | | | | [address];[place] | | | | | | [address] | | | | + + + + + + | Anion Gap | 13Comment: Testing | 5 - 20 mmol/L | EXTERNAL | | | | performed at [facility];[address] | | LAB | | | | [address];[place] | | | | | | [address] | | | | + + + + + + | Glucose, | 172 (H)Comment: Testing | 65 - 99 mg/dL | EXTERNAL | | | Fasting | performed at [facility];[address] | | LAB | | | | [address];[place] | | | | | | [address] | | | | + + + + + + | BUN | 10Comment: Testing | 8 - 25 mg/dL | EXTERNAL | | | | performed at [facility];[address] | | LAB | | | | [address];[place] | | | | | | [address] | | | | + + + + + + | Creatinine | 1.1Comment: Testing | 0.70 - 1.30 | EXTERNAL | | | | performed at [facility];[address] | mg/dL | LAB | | | | [address];[place] | | | | | | [address] | | | | + + + + + + | BUN/Creatin | 10Comment: Testing | | EXTERNAL | | | ine Ratio | performed at [facility];[address] | | LAB | | | | [address];[place] | | | | | | [address] | | | | + + + + + + | Calcium | 8.7Comment: Testing | 8.5 - 10.5 | EXTERNAL | | | | performed at [facility];[address] | mg/dL | LAB | | | | [address];[place] | | | | | | [address] | | | | + + + + + + | Protein, | 7.9Comment: Testing | 6.3 - 8.2 g/dL | EXTERNAL | | | Total | performed at [facility];[address] | | LAB | | | | [address];[place] | | | | | | [address] | | | | + + + + + + | Albumin | 3.3Comment: Testing | 3.3 - 4.8 g/dL | EXTERNAL | | | | performed at [facility];[address] | | LAB | | | | [address];[place] | | | | | | [address] | | | | + + + + + + | Globulin | 4.6Comment: Testing | 1.3 - 4.9 g/dL | EXTERNAL | | | | performed at [facility];[address] | | LAB | | | | [address];[place] | | | | | | [address] | | | | + + + + + + | A/G Ratio | 0.7 (L)Comment: Testing | 1.0 - 2.4 | EXTERNAL | | | | performed at [facility];[address] | | LAB | | | | [address];[place] | | | | | | [address] | | | | + + + + + + | Bilirubin | 0.5Comment: Testing | 0.1 - 1.5 mg/dL | EXTERNAL | | | Total | performed at [facility];[address] | | LAB | | | | [address];[place] | | | | | | [address] | | | | + + + + + + | ALP, | 143 (H)Comment: Testing | 35 - 115 U/L | EXTERNAL | | | External | performed at [facility];[address] | | LAB | | | | [address];[place] | | | | | | [address] | | | | + + + + + + | AST | 15Comment: Testing | 10 - 45 U/L | EXTERNAL | | | | performed at [facility];[address] | | LAB | | | | [address];[place] | | | | | | [address] | | | | + + + + + + | ALT | 21Comment: Testing | 10 - 65 U/L | EXTERNAL | | | | performed at [facility];[address] | | LAB | | | | [address];[place] | | | | | | [address] | | | | + + + [...] | | | | | | at [facility];[address];[place] [address] | | | | + + + + + + | CK, Total | 105Comment: Testing | 55 - 400 U/L | EXTERNAL | | | | performed at [facility];[address] | | LAB | | | | [address];[place] | | | | | | [address] | | | | + + + [...] | | | | | performed at [facility];[address] | | | | | | [address];[place] | | | | | | [address] | | | | + + + + + + | aPTT, | 27Comment: Testing | 23 - 32 seconds | EXTERNAL | | | Patient | performed at [facility];[address] | | LAB | | | | [address];[place] | | | | | | [address] | | | | + + + + + + | CK-MB | 2.5Comment: Testing | 0.5 - 3.6 ng/mL | EXTERNAL | | | | performed at [facility];[address] | | LAB | | | | [address];[place] | | | | | | [address] | | | | + + + [...] | | | | | performed at [facility];[address] | | | | | | [address];[place], [place] | | | | | | [address] | | | | + + + [...] + + | [facility] Epic [facility] | EXTERNAL LAB [...]
--- OUTSIDE RECORDS SUMMARY | ~2019-09-09 | XMS | Encounter Summary ---
Demographics + + + | Address | [address] | | | [place] [address] | + + + | Home Phone [...] Sammi Kohler | ECON | [place] [address] | | + + + + + Care Team Providers + +------+ + | Care Panelbeater Name | Role | Phone | + [...] + + | 10/17/ | Telephone | [facility] | Reinaldo Sanchez | Medication Question | | 2019 | | [facility] | MD Xander [address] | | | | | [address] | [facility] [address] | | | | | [address] [facility] [address] | [place] [address] | | | | | [place], [place] | [phone] | | | | | [address] | | | | | | [phone] | | | +--------+ + + + [...] Sanchez MD - 10/17/2018 11:52 AM PDTYes anJitendrai saranya signed by Reinaldo Sanchez MD at 10/17/2018 11:52 AM PDTTelephone Encounter - 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 He refused the novolog and are wanting clarification on insulin. Can they initiate house sl iding scale? dorobin dozier in this encounter Plan of Treatment +--------+---------+ + + + | Date | Type | Specialty | Care Team | Description | +--------+---------+ + + + | 09/10/ | Office | Geriatric Medicine | Mireya Pack, | | | 2019 | Visit | | REAL ESTATE ANALYST [address] | | | | | | [address] [place], | | | | | | [place] [address] | | | | | | [phone] | | | | | | | | +--------+---------+ + + + | 09/29/ | Office | Urology | Mireya Pack, | | | 2019 | Visit | | REAL ESTATE ANALYST [address] | | | | | | [address] [place], | | | | | | [place] [address] | | | | | | [phone] | | | | | | | | | | | | Toy Wild, DO | | | | | | [address] | | | | | | [place] [address] | | | | | | [phone] | | | | | | | | +--------+---------+ + + + documented as of this encounter Visit Diagnoses Not on filedocumented in this encounter"
--- OUTSIDE RECORDS SUMMARY | ~2019-09-09 | XMS | Encounter Summary ---
Demographics + + + | Address | [address] | | | [place] [address] | + + + | Home Phone [...] | Sammi Kohler | ECON | [place] [address] | | + + + + + Care Team Providers + +------+ + | Care Field Artillery Operations Specialist Name | Role | Phone | + +------+ + | Mireya Pack NP | PCP | | + +------+ + Encounter Details +--------+ + + + + | Date | Type | Department | Care Team | Description | +--------+ + + + + | 12/03/ | Telephone | [facility] | Yu Muse, | | | 2018 | | OIL REFINERY OPERATOR | Miter Saw Operator | | | | | MA[address] | | | | | | [address] | | | | | | [place], [place] | | | | | | [address] | | | | | | [phone] | | | +--------+ + + + [...] AM PDTPatient receiv ed interactive outreach from [facility] for ED discharge follow up. Patient selected cristino cruz getting medication. Returned call to patient states he can not get his diabetic socks until a couple of days. S [employer] insurance will not cover for them until [...] | | 2019 | Visit | | CLUB ATTENDANT [address] | | | | | | [address] [place], | | | | | | [place] [address] | | | | | | [phone] | | | | | | | | +--------+---------+ + + + | 09/29/ | Office | Urology | Mireya Pack, | | | 2019 | Visit | | CLUB ATTENDANT [address] | | | | | | [facility] [address] [place], | | | | | | [place] [address] | | | | | | [phone] | | | | | | | | | | | | Toy Wild, DO | | | | | | [address] | | | | | | [place] [address] | | | | | | [phone] | | | | | | | | +--------+---------+ + + + documented as of this encounter Visit Diagnoses Not on filedocumented in this encounter"
--- OUTSIDE RECORDS SUMMARY | ~2019-09-09 | XMS | Encounter Summary ---
Demographics + + + | Address | [address] | | | [place] [address] | + + + | Home Phone | | + + + | Preferred Language | Unknown | + + + | Marital Status | | + + + | Muslim Affiliation | 1027 | + + + | Race | Unknown | + + + | Ethnic Group | Unknown | + + + Author + + + | Author | [facility] | | | and [place] | + + + | Organization | [facility] | | | and [place] | + + + | Address | Unknown | + + + | Phone | Unavailable | + + + Support + + + + + | Name | Relationship | Address | Phone | + + + + + | Sammi Kohlre | ECON | [place] [address] | | + + + + + Care Team Providers + +------+ + | Care Environmental Field Team Member Name | Role | Phone | + [...] (cancel apt) | | 2019 | | [facility] [address] | [address] | | | | | [address] | | | | | | [place] | | | | | | [address] | | | | | | [phone] | | | +--------+ + + + [...] to repeat what he said to cl arify the message. documented in this encounter Plan of Treatment +--------+---------+ + + + | Date | Type | Specialty | Care Team | Description | +--------+---------+ + + + | 09/10/ | Office | Geriatric Medicine | Mireya Pack, | | | 2019 | Visit | | HUMAN RESOURCES CONSULTANT [address] | | | | | | [address] [place], | | | | | | [place] [address] | | | | | | [phone] | | | | | | | | +--------+---------+ + + + | 09/29/ | Office | Urology | Mireya Pack, | | | 2019 | Visit | | HUMAN RESOURCES CONSULTANT [address] | | | | | | [address] [place] | | | | | | [place] [address] | | | | | | [phone] | | | | | | | | | | | | Toy Wild, DO | | | | | | [address] | | | | | | [place] [address] | | | | | | [phone] | | | | | | | | +--------+---------+ + + + documented as of this encounter Visit Diagnoses Not on filedocumented in this encounter"
--- OUTSIDE RECORDS SUMMARY | ~2019-09-09 | XMS | Encounter Summary ---
Demographics + + + | Address | [address] | | | [place] [address] | + + + | Home Phone [...] Sammi Kohler | ECON | [place] [address] | | + + + + + Care Team Providers + +------+ + | Care Staffing Manager Name | Role | Phone | [...] + + | 05/14/ | Emergency | [facility] | Bimal Ramirez S, | Fall, initial | | 2019 - | | [facility] | [address] | encounter (Primary | | | | CARE FLOOR [address] | [place] | Dx); Traumatic | | 05/17/ | | [address] | [address] | hematoma of right | | 2019 | | [place], [place] | | knee, initial | | | | [address] | Preet, | encounter; Chronic | | | | [phone] | MD Jorge [address] | anticoagulation; | | | | | [address] | Need for assistance | | | | | [place] [address] | due to unsteady gait | | | | | [phone] | | | | | | | | | | | | Keisha Ahn MD | | | | | | [address] | | | | | | [place] [address] | | | | | | [phone] | | | | | | | [...] Ahn MD - 05/18/2019 1:01 PM PDT [facility] Service: Hospitalist Discharge Summary Date of Admission: [...] mcgrath recommended SNF and patient discharged to [facility]. Hemoglobin remained stable on d ischarge. [...] W CONTRAST (02/25/2016); FINDINGS: Pelvis: Normal osseous mica miner alization. Subtle contour abnormalities of the pelvis [...] Right knee joint effusion. Signed by: Irina Sam, Jose Sign Date/ Time: 05/15/2019 8:52 PM [...] intact. Negative portable chest. Signed by: Irina Sam Brian Sign Date/Time: 05/15/2019 8:47 PM Xr Pelvis 1 Or 2 Vw Result Date: 05/15/2019 PELVIS ONE OR TWO VIEWS; RIGHT KNEE ONE OR TWO VIEWS CLINICAL INFORMATION: Right leg pain a fter Fall. Right leg deformity. COMPARISON: XR ABDOMEN SUPINE AND UPRIGHT WITH 1 VW CHEST (); CT ABDOMEN PELVIS W CONTRAST (02/25/2016); FINDINGS: Pelvis: Normal osseous mica miner alization. Subtle contour abnormalities of the pelvis [...] Right knee joint effusion. Signed by: Irina Sam Brian Sign Date/ Time: 05/15/2019 8:52 PM [...] 4. Atherosclerotic vascular disease. Signed by: Irina Sam Brian Sign Date/Time: 05/15/19 9:53 PM [facility] Condition: Stable Code Status: Full Code No discharge procedures on file. Follow up: [facility] [address] [facility] [id number] Discharge took 35 minutes, to include final [...] Take 1 tablet by mouth nightly. aka: Stat DoctorsITOR Blood Glucose Monitor System w/Device Kit Dispense [...] | | | | use of insulin ([facility]) | | | | | | + [...] | | | | use of insulin ([facility]) | | | | | | + [...] | | | | use of insulin ([facility]) | | | | | | + [...] Ahn MD - 05/17/2019 9:34 AM PDT [facility] Service: Hospitalist Progress Note Hospital Day: LOS: [...] W CONTRAST (02/25/2016); FINDINGS: Pelvis: Normal osseous mica miner alization. Subtle contour abnormalities of the pelvis [...] Right knee joint effusion. Signed by: Irina Sam, Jose Sign Date/ Time: 05/15/2019 8:52 PM [...] intact. Negative portable chest. Signed by: Irina Sam Brian Sign Date/Time: 05/15/2019 8:47 PM Xr Pelvis 1 Or 2 Vw Result Date: 05/15/2019 PELVIS ONE OR TWO VIEWS; RIGHT KNEE ONE OR TWO VIEWS CLINICAL INFORMATION: Right leg pain a fter Fall. Right leg deformity. COMPARISON: XR ABDOMEN SUPINE AND UPRIGHT WITH 1 VW CHEST (1 ); CT ABDOMEN PELVIS W CONTRAST (02/25/2016); FINDINGS: Pelvis: Normal osseous mica miner alization. Subtle contour abnormalities of the pelvis [...] Right knee joint effusion. Signed by: Irina Sam Brian Sign Date/ Time: 05/15/2019 8:52 PM [...] 4. Atherosclerotic vascular disease. Signed by: Irina Sam, Jose Sign Date/Time: 05/15/19 9:53 PM PROBLEM [...] Status: Full Code Keisha Ahn MD 05/17/2019 Keisha Melara MD - 0 05/16/2019 10:35 PM PDT [facility] Service: Hospitalist Progress Note Hospital Day: LOS: [...] W CONTRAST (02/25/2016); FINDINGS: Pelvis: Normal osseous mica miner alization. Subtle contour abnormalities of the pelvis [...] Right knee joint effusion. Signed by: Irina Sam, Jose Sign Date/ Time: 05/15/2019 8:52 PM [...] intact. Negative portable chest. Signed by: Irina Sam, Jose Sign Date/Time: 05/15/2019 8:47 PM Xr Pelvis 1 Or 2 Vw Result Date: 05/15/2019 PELVIS ONE OR TWO VIEWS; RIGHT KNEE ONE OR TWO VIEWS CLINICAL INFORMATION: Right leg pain a fter Fall. Right leg deformity. COMPARISON: XR ABDOMEN SUPINE AND UPRIGHT WITH 1 VW CHEST (1 ); CT ABDOMEN PELVIS W CONTRAST (02/25/2016); FINDINGS: Pelvis: Normal osseous mica miner alization. Subtle contour abnormalities of the pelvis [...] Right knee joint effusion. Signed by: Irina Sam Brian Sign Date/ Time: 05/15/2019 8:52 PM [...] 4. Atherosclerotic vascular disease. Signed by: Irina Sam Brian Sign Date/Time: 05/15/19 9:53 PM PROBLEM [...] mellitus type II DVT (deep venous thrombosis) ([facility]) 03/29/2018 Facial droop 07/08/2013 GIB (gastrointestinal bleeding) 03/02/[address] Nur, rectal ulcers, nodule of GE junction Hypercholesterolemia 07/08/2013 Hyperlipidemia Hypertension rn long term care (current) use of 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 Obesity, Class I, BMI 30-34.9 07/08/2013 WARD (obstructive sleep apnea) 08/11/2012 does not use CPAP because of the noise Other chronic pain Renal failure Stroke ([facility]) TIA (transient ischemic attack) Unspecified visual disturbance [...] Rh PENDING Antibody Screen PENDING BB BAND [id number] BB BAND Testing performed at [facility];[address] [place] [address];[place] [address] CK Total Result Value Ref Range CK [...] -Hypertension -Dyslipidemia -Diabetes Plan Admit to observation 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 ? Benefit from SNF Rest, ice, [...] IP CONSULT TO WOUND OSTO MY NURSE [facility] Service: Wound Care Consult Note Hospital Day: 0 SUBJECTIVE Patient Summary: Wound care consulted on traumatic elbow. Skin tear present. Patient' s knee was wrapped in kayleen wrap and partial cast upon entry to room. No wounds to toes or rosalba ls. Patient states he has not had foot care in a year since he was in rehab. May benefit fro m outpatient podiatry due to diabetes. OBJECTIVE 05/16/19 [...] disease) TIA (transient ischemic attack) Actinic keratosis rn long term care (current) use of 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 COPD (chronic obstructive [...] Ramirez MD - 05/15/2019 8:18 PM PDT [facility] Department of Emergency Medicine Norah Gr EMERGENCY [...] knee injury and pain secondary to a [facility] anical fall. I have considered dislocation and posterior fracture as a partial list of diffe rential diagnoses. Will order labs, imaging, and reevaluate the patient. CHIEF COMPLAINT: Chief Complaint Patient presents with Fall tripped over a curve landing on his R knee and elbow Leg Deformity R ED Room: [address] [place] [address] Norah Gr is a 63 y.o. male who presents to the Emergency Department for right knee injur y secondary to fall Location: right knee Quality: Mechanical fall directly onto right knee causing deformity Severity: mild to moderate Duration: just CHHA Timing: constant Modifying factors: none Care prior to arrival: none Associated symptoms: dizziness, knee pain, and swelling Denies: any other symptoms at this time 63 y.o. male. pt presents to the ED with a right leg deformity. Onset of symptoms was earli viet shellight, with a constant course since that time. [...] Se rvice: Gastroenterology; Laterality: N/A; CURRENT MEDICATIONS CHHA Home Medications Medication Sig acetaminophen (TYLENOL) 325 [...] sore throat CV/Resp: Negative for chest pain, luwrlyyjd-we-ijetof, cough GI: Negative for abdominal pain, nausea, [...] at with PAC's at 77 bpm. Normal VA and RICHARD Normal QRS and [place] Slightly prolong QT and QTC T wave inversions laterally No acute ischemic changes An EKG dated April 23, 2019 the PAC's are new and the remainder is otherwise unchanged in comparison to the EKG obtained today. Interpreted by Bimal Ramirez DO. LABS Results Procedure Component Value Ref Range Date/Time Type and Screen [[id number]] Collected: 05/15/192023 Order Status: Completed Specimen: Blood Updated: 05/16/19 0211 ABO Rh A POSITIVE Antibody Screen NEGATIVE BB BAND [id number] BB BAND Testing performed at [facility];[address] [place] [address];[place] [address] B Type Natriuretic Peptide [[id number]] Collected: 05/15/192023 Order Status: Completed Updated: 05/15/192100 BNP 37.14 0 - 100 pg/mL Comprehensive Metabolic Panel [[id number]] (Abnormal) Collected: 05/15/192023 Order Status: Completed Specimen: [...] Estimated GFR >60 >60 mL/min/1.73m2 Troponin I [[id number]] Collected: 05/15/192023 Order Status: Completed Specimen: Blood Updated: 05/15/192056 Troponin I 0.031 0.00 - 0.04 ng/mL CK Total [[id number]] Collected: 05/15/192023 Order Status: Completed Specimen: Blood Updated: 05/15/192056 CK TOTAL 68 55 - 400 U/L PTT [[id number]] Collected: 05/15/192023 Order Status: Completed Specimen: Blood Updated: 05/15/192047 PTT 26 23 - 32 seconds Protime INR [[id number]] Collected: 05/15/192023 Order Status: Completed Specimen: Blood Updated: 05/15/192047 INR 0.9 CBC with Differential [[id number]] (Abnormal) Collected: 05/15/192023 Order Status: Completed Specimen: [...] Impression Negative portable chest. Signed by: Irina Sam Brian Sign Date/Time: 05/15/2019 8:47 PM XR [...] Right knee joint effusion. Signed by: Irina Sam Brian Sign Date/Time: 05/15/2019 8:52 PM XR [...] Right knee joint effusion. Signed by: Irina Sam Brian Sign Date/Time: 05/15/2019 8:[address] [...] 4. Atherosclerotic vascular disease. Signed by: Irina Sam Brian Sign Date/Time: 05/15/2019 9:[address] [...] were reviewed along with EMS notes and longterm record s if applicable. (See chart for [...] 5 mg (5 mg Oral Given 05/17/1942) ARIPiprazole (ABILIFY) tablet 5 mg (5 mg [...] tablet 25 mg (25 mg Oral Given 05/17/19 0841) lisinopril (PRINIVIL, ZESTRIL) tablet 40 mg (40 mg Oral Given 05/17/19 0842) NIFEdipine (PROCARDIA XL) ER tablet 60 mg (60 mg Oral Given 05/17/19 08) tamsulosin (FLOMAX) capsule 0.4 mg (0.4 mg Oral Given 05/17/19 08) dextrose 50% injection 12.5-25 g (has no [...] 0-12 Units (2 Units Subcutaneous Given 05/17/19 12) ibuprofen (ADVIL, MOTRIN) tablet 400 mg [...] recognition system. The possibility of "sound alike" pit hoist operator errors, addition and/or deletions may occur. [...] Completed 05/17/2019 11:58 AM. Scribe: Yashira Simmons scribe, scribing for and in the presence of [...] else needed at this time. lan of Car chad - Mel Mckoy RN - 05/18/2019 1:35 PM PDTReport [facility] signed by Mel Mckoy RN at 05/18/2019 1:35 PM PDTSNF Transfer - Keisha Ahn MD - 05/18/2019 12:59 PM PDTFormatting of this note might be different from the orig inal. DETENTION FACILITY TRANSFER ORDERS Patient Name: Norah Gr Patient : 1955 Gender: male Date of Admission: 05/15/2019 Date of Discharge: 05/18/2019 Admitting Provider: Jorge Roberto* Discharging Provider: Keisha Anh MD Consultants: PCP: Mireya Pack [facility] CODE STATUS: Full Code Isolation/Infection Precautions: [x] [...] disease) TIA (transient ischemic attack) Actinic keratosis rn long term care (current) use of 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 COPD (chronic obstructive [...] TDAP, (ADOL/ADULT) 12/16/2014 Diet: [] As tolerated PULP MILL TEAM LEADER may upgrade or downgrade diet as condition [...] [] GT [] JT [] Formula type: (Market Development Manager may change/substitute if indicated). [] Continuous Rate: [...] Treat [x] OT Evaluation & Treat [] PULP MILL TEAM LEADER Evaluation Treat Wound/Skin Care: [] Follow current recommendations of the wound team for treatment. [] Wound Vac management per nursing protocol. Labs/Imaging: [] PT/INR: Frequency per SNF provider Goal INR: [x] Fingerstick glucose check before meals and bedtime and PRN Follow up: [facility] [address] [facility] [address] I have advised this patient [...] (pen) IKeisha MD, certify that post hospital intermediate care is medically necessar y on a continuing basis for any of the conditions for which he/she received care during this hospitalization. Additional Orders/Instructions: Physician's signature:____Keisha Ahn 05/18/2019 12:59 PM [facility] USE ONLY: [] Admitting orders verbally reviewed with Admitting Physician, modified where appropriate, and approved. Verbal Order from Date: Time: _ RN name: RN signature: [] Admitting orders reviewed, modified where appropriate, and approved. Physician's signature: Date: Time: lan of Rianna Maynard MSW - 05/18/2019 10:59 AM PDTPer call with [phone] at 9:40a m, facility can accept patient today and will arrange w/c transport for a 3pm pepper picker. Conf kan PASSR has already been received. SNF Transfer Order and scripts for nacotics needed f or d/c. Unit POLICE LIAISON OFFICER and lead aware. Spoke with patient who [...] frequently verbalizing eagerness to go to [facility] later today, appears comfortabl e and states boredom. Called for pain medication once this shift. Problem: Wound Goal: Optimal Wound Healing Outcome: Ongoing, progressing Elbow wound is dry with no new drainage, dressing reinforced. No complaint offered from pt. lan of Franko Mace MSW - 05/17/2019 11:19 AM PDTCM spoke with Allen at [facility] who has no openings until Monday. CM received a call from [facility] stating they can accept pt on [...] Therapy Treatment, Discharge Note Recommended discharge disposition: intermediate facility Post discharge physical therapy recommendation: outpatient [...] HOB elevated Supine to Sit, Level of Nelson: modified independent Sit to Supine, Level of Nelson: not tested Safety Issues: decreased use of legs for bridging/pushing Impairments: strength decreased Transfers Transfers Comments: Uses momentum strategy to stand from EOB. Verbal cues to push up from b ed instead of pulling on FWW. Additional Documentation: sit to/from stand, bed to/from chair Bed-Chair, Level of Nelson: modified independent Chair-Bed, Level of Nelson: not tested [id number]-Kzd, Assistive Device: 2 wheeled walker (FWW) Sit-Stand, Level of Nelson: modified independent Stand-Sit, Level of Nelson: modified independent Jzj-Fqvwt-Uti, Assistive Device: 2 wheeled walker (FWW) Safety Issues: step length decreased Impairments: strength decreased, impaired balance Gait Gait Comments: Antalgic gait on the right. Level of Nelson: stand by assist Assistive Device: 2 wheeled [...] LTG Status met at 05/17/2019 0808 LTG Nelson Level modified independent at 05/17/2019 0808 LTG Assistive Device none at 05/17/2019 0808 All Transfers Goal Most Recent Value LTG Status met at 05/17/2019 0808 LTG Nelson Level modified independent at 05/17/2019 0808 LTG Assistive Device 2 wheeled walker (FWW) at 05/17/2019 0808 Gait Goal Most Recent Value LTG Status progressing at 05/17/2019 0808 LTG Nelson Level stand by assist at 05/17/2019 0808 [...] faxed yesterday. CM spoke with Ladi at [facility] who stated they curr ently have no male beds available. CM will continue working on discharge planning. Franko Ann MILK RECEIVER TANK TRUCK lan of Marifer Ford RN - 05/17/2019 5:24 AM PDT Problem: Adult Inpatient Plan of Care Goal: Readiness for Transition of Care Outcome: Ongoing, progressing Plan of care reviewed with patient, all questions answered. Patient is cooperative and agre eable to going to SNF. Problem: Pain Acute Goal: Optimal Pain Control Outcome: Ongoing, progressing PRN [place] given before bed with zofran after pt was assisted from recliner to bed. Leg mikaela ins elevated on pillows with ice packs changed PRN. Problem: Wound Goal: Optimal Wound Healing Outcome: Ongoing, progressing Dressing from rolling up machine operator remains in place, scant old drainage. lan of Care - Deana Yolette Andrea RN - 05/16/2019 3:30 PM PDTCare Management [...] Family Contact Information: Name: Sammi Kohler (Former hyxlne-vl-qmt) DC Needs Assessment Current Outpt/Agency/Support Groups: homecare agency (specify level of care)(Aide 3 dys/wk ) Community Agency Name: [facility] Anticipated Changes Related to Illness: inability to care for self Concerns to be Addressed: home safety concerns Services Anticipated at Discharge: none Equipment Used at Home: cane, straight, single point Equipment Needed after Discharge: walker, standard Pharmacy/Medication Needs: Rx Pharmacy Transportation Needs: other (see comments)(Pt may need assistance with transportation.) Initial Plan Anticipated Discharge Disposition: intermediate facility Expected DC Date: other (see comments)(Pt will need rehab before returning home.) Steps Taken Toward Discharge: Initial assessment done. Next Steps: Referral sent RR and Dionne Notes: Met with pt, explained CM's role and discussed discharge planning. Pt lives alone, is independent at baseline and uses a cane. He is part of the [employer] [facility], nurse case management is Elizabeth doan [phone]. He receives 20 hrs/mth, aide comes in 3 dys/wk. He has 3 siblings, all live out of town. He is from his 1st and 2nd is . His 40 yo son is handicapped and lives with his former nqiwep-ww-uln. He is not participating in outpatient medical services, no blood thinners/home oxygen/cpap/ dialysis/home health. Electronically signed: YOLETTE GALVEZ RN 05/16/2019 3:32 PM lan of Care - Song nks, Jennifer Calixto RN - 05/16/2019 12:31 PM [...] pain controlled, PRN meds available. lan of Jelena - Randa Styles, PT - 05/16/2019 10:44 AM PDTFormatt ing of this note might be different from the original. Physical Therapy Initial Evaluation Note Recommended discharge disposition: intermediate facility Post discharge physical therapy recommendation: outpatient [...] HOB elevated Supine to Sit, Level of Nelson: supervised Sit to Supine, Level of Nelson: not tested Safety Issues: cognitive deficits limit understanding Impairments: strength decreased Transfers Additional Documentation: sit to/from stand, bed to/from chair Bed-Chair, Level of Nelson: contact guard assist Chair-Bed, Level of Nelson: not tested Tbq-Pfktw-Uhj, Assistive Device: 2 wheeled walker (FWW) Sit-Stand, Level of Nelson: contact guard assist Stand-Sit, Level of Nelson: not tested Gca-Apllj-Yyi, Assistive Device: 2 wheeled walker (FWW) Safety Issues: step length decreased, weight-shifting ability decreased Gait Level of Nelson: contact guard assist Assistive Device: 2 wheeled [...] LTG Status new at 05/16/2019 1002 LTG Nelson Level modified independent at 05/16/2019 1002 LTG Assistive Device none at 05/16/2019 1002 All Transfers Goal Most Recent Value LTG Status new at 05/16/2019 1002 LTG Nelson Level modified independent at 05/16/2019 1002 LTG Assistive Device 2 wheeled walker (FWW) at 05/16/2019 1002 Gait Goal Most Recent Value LTG Status new at 05/16/2019 1002 LTG Nelson Level modified independent at 05/16/2019 1002 LTG Assistive Device 2 wheeled walker (FWW) at 05/16/2019 1002 LTG Distance (feet) 150 at 05/16/2019 1002 LTG Comments verbal cues to try and increase WB RLE instead of hopping. at 05/16/2019 1002 lan of Care - Comfort soler, Romie Andrea MD - 05/16/2019 9:52 AM PDTpatient with injury to knee with large hematoma. Cleopatra prabhakar is on eliquis. There are no fractures. Would not recommend surgical management. Ice, c ompression, immobilization with knee immobilizer anad PT/OT. Follow with Dr. Trent in 1- 3 weeks. Please contact me directly if further issues arise. [phone] signed by Konstantin Trent MD at 05/16/2019 [...] this time, spontaneously resolved after returning from [facility]. Neuro assessment continues to be benign. documented in this encounter Plan of Treatment +--------+---------+ + + + | Date | Type | Specialty | Care Team | Description | +--------+---------+ + + + | 09/10/ | Office | Geriatric Medicine | Mireya Pack, | | 2019 | Visit | | SLICING MACHINE OPERATOR/TENDER [address] | | | | | | [address] [place], | | | | | | [place] [address] | | | | | | [phone] | | | | | | | | +--------+---------+ + + + | 09/29/ | Office | Urology | Mireya Pack, | | | 2019 | Visit | | SLICING MACHINE OPERATOR/TENDER [address] | | | | | | [address] [place], | | | | | | [place] [address] | | | | | | [phone] | | | | | | | | | | | | Toy Wild, DO | | | | | | [address] | | | | | | [place] [address] | | | | | | [phone] | | | | | | | [...] | | | 2019 | | | 8:20 | | | [...] | | | ON?04/ | | | | | | 0 | | | 20:19? | | | GR, | | | NORAH | | | | | | M?MRN: | | | | | | [id number] | | | [id number] | | | riteri | | | [...] | | s M[facility] | | | [place] | | | [place] | | | [...] | | | [place] | | | Instrumentation Technician | | | al | | | [...] | | | MIREYA, | | | SLICING MACHINE OPERATOR/TENDER | | | Nurse | | | [...] | | | [id number] | | | [id number] | | | 94 | | | [...] [facility];[address] | | LABORATORY | | | | [address];[place] | | | | | | [address] | | | | + + + + + + + + | Specimen | + + | | + + + + + + + | Performing | Address | City/State/Zipcode | Phone Number | | Organization | | | | + + + + + | [facility] | [address] | [place] [address] | [phone] | + + + + + POC [...] [facility];[address] | | LABORATORY | | | | [address];[place] | | | | | | [address] | | | | + + + + + + + + | Specimen | + + | | + + + + + + + | Performing | Address | City/State/Zipcode | Phone Number | | Organization | | | | + + + + + | [facility] | [address] | [place] [address] | [phone] | + + + + + CBC [...] | 10.1Comment: NO NORMAL | fl | ARPIT | | | | RANGE ESTABLISHEDTesting | | LABORATORY | | | | performed at [facility], [address] | | [address], | | | | | | [place] [address] | | | | + + + + + + + + | Specimen | + + | Blood | + + + + + + + | Performing | Address | City/State/Zipcode | Phone Number | | Organization | | | | + + + + + | [facility] | [address] | [place] [address] | [phone] | + + + + + POC [...] [facility];[address] | | LABORATORY | | | | [address];[place], [place] | | | | | | [address] | | | | + + + + + + + + | Specimen | + + | | + + + + + + + | Performing | Address | City/State/Zipcode | Phone Number | | Organization | | | | + + + + + | [facility] | [address] | [place] [address] | [phone] | + + + + + POC Glucose (05/17/2019 4:19 PM PDT) + + + + + + | Component | Value | Ref Range | Performed | Pathologist | | | | | At | Signature | + + + + + + | Glucose, | 157 (H)Comment: Testing | 65 - 99 mg/dL | [facility] | | | POC | performed at [facility];[address] | | LABORATORY | | | | [address];[place] | | | | | | [address] | | | | + + + + + + + + | Specimen | + + | | + + + + + + + | Performing | Address | City/State/Zipcode | Phone Number | | Organization | | | | + + + + + | [facility] | [address] | [place] [address] | [phone] | + + + + + POC Glucose (05/17/2019 10:25 AM PDT) + + + + + + | Component | Value | Ref Range | Performed | Pathologist | | | | | At | Signature | + + + + + + | Glucose, | 198 (H)Comment: Testing | 65 - 99 mg/dL | [facility] | | | POC | performed at [facility];[address] | | LABORATORY | | | | [address];[place] | | | | | | [address] | | | | + + + + + + + + | Specimen | + + | | + + + + + + + | Performing | Address | City/State/Zipcode | Phone Number | | Organization | | | | + + + + + | [facility] | [address] | [place] [address] | [phone] | + + + + + POC [...] [facility];[address] | | LABORATORY | | | | [address];[place], [place] | | | | | | [address] | | | | + + + + + + + + | Specimen | + + | | + + + + + + + | Performing | Address | City/State/Zipcode | Phone Number | | Organization | | | | + + + + + | [facility] | [address] | [place] [address] | [phone] | + + + + + CBC [...] | 9.8Comment: NO NORMAL | fl | ARPIT | | | | RANGE ESTABLISHEDTesting | | LABORATORY | | | | performed at [facility];[address] | | | | | | [address];[place], [place] | | | | | | [address] | | | | + + + + + + + + | Specimen | + + | Blood | + + + + + + + | Performing | Address | City/State/Zipcode | Phone Number | | Organization | | | | + + + + + | [facility] | [address] | [place] [address] | [phone] | + + + + + Hemoglobin A1C (05/17/2019 4:40 AM PDT) + + + + + + | Component | Value | Ref Range | Performed | Pathologist | | | | | At | Signature | + + + + + + | Hemoglobin | 9.3 (H)Comment: HbA1c | 4.0 - 6.0 % | [facility] | | | A1c | method [...] | 220 (H)Comment: | <154 mg/dL | [facility] | | | Average | Estimated Average | | LABORATORY | | | Glucose | Glucose calculated from | | | | | | hemoglobin A1c by use of | | | | | | the ADArecommended | | | | | | formula.Testing | | | | | | performed at [facility], [address] | | | | | [address], | | | | | | [place] [address] | | | | + + + + + + + + | Specimen | + + | Blood | + + + + + + + | Performing | Address | City/State/Zipcode | Phone Number | | Organization | | | | + + + + + | [facility] | [address] | [place] [address] | [phone] | + + + + + POC [...] [facility];[address] | | LABORATORY | | | | [address];[place] | | | | | | [address] | | | | + + + + + + + + | Specimen | + + | | + + + + + + + | Performing | Address | City/State/Zipcode | Phone Number | | Organization | | | | + + + + + | [facility] | [address] | [place] [address] | [phone] | + + + + + POC Glucose (05/16/2019 4:02 PM PDT) + + + + + + | Component | Value | Ref Range | Performed | Pathologist | | | | | At | Signature | + + + + + + | Glucose, | 212 (H)Comment: Testing | 65 - 99 mg/dL | [facility] | | | POC | performed at [facility];[address] | | LABORATORY | | | | [address];[place] | | | | | | [address] | | | | + + + + + + + + | Specimen | + + | | + + + + + + + | Performing | Address | City/State/Zipcode | Phone Number | | Organization | | | | + + + + + | [facility] | [address] | [place] [address] | [phone] | + + + + + POC [...] [facility];[address] | | LABORATORY | | | | [address];[place] | | | | | | [address] | | | | + + + + + + + + | Specimen | + + | | + + + + + + + | Performing | Address | City/State/Zipcode | Phone Number | | Organization | | | | + + + + + | [facility] | [address] | [place] [address] | [phone] | + + + + + POC [...] [facility];[address] | | LABORATORY | | | | [address];[place], [place] | | | | | | [address] | | | | + + + + + + + + | Specimen | + + | | + + + + + + + | Performing | Address | City/State/Zipcode | Phone Number | | Organization | | | | + + + + + | [facility] | [address] | [place] [address] | [phone] | + + + + + Magnesium (05/16/2019 4:29 AM PDT) + + + + + + | Component | Value | Ref Range | Performed | Pathologist | | | | | At | Signature | + + + + + + | Magnesium | 1.8Comment: Testing | 1.7 - 2.4 mg/dL | [facility] | | | | performed at [facility], [address] | | LABORATORY | | | | [address], | | | | | | [place] [address] | | | | + + + + + + + + | Specimen | + + | Blood | + + + + + + + | Performing | Address | City/State/Zipcode | Phone Number | | Organization | | | | + + + + + | [facility] | [address] | [place] [address] | [phone] | + + + + + Comprehensive [...] W | | | | | | [facility], | | | | | | [place] [address] | | | | + + + + + + + + | Specimen | + + | Blood | + + + + + + + | Performing | Address | City/State/Zipcode | Phone Number | | Organization | | | | + + + + + | [facility] | [address] | [place] [address] | [phone] | + + + + + CBC with Differential (05/16/2019 4:29 AM PDT) + + + + + + | Component | Value | Ref Range | Performed | Pathologist | | | | | At | Signature | + + + + + + | WBC | 12.85 (H) | 3.80 - 11.00 | KR [...] 0.05Comment: Testing | 0.00 - 0.10 | [facility] | | | Absolute | performed at [facility], [address] | [address] | LABORATORY | | | | [address], | | | | | | [place] [address] | | | | + + + + + + + + | Specimen | + + | Blood | + + + + + + + | Performing | Address | City/State/Zipcode | Phone Number | | Organization | | | | + + + + + | [facility] | [address] | [place] [address] | [phone] | + + + + + CT [...] Testing | 65 - 99 mg/dL | [facility] | | | POC | performed at [facility];[address] | | LABORATORY | | | | [address];[place] | | | | | | [address] | | | | + + + + + + + + | Specimen | + + | | + + + + + + + | Performing | Address | City/State/Zipcode | Phone Number | | Organization | | | | + + + + + | [facility] | [address] | [place] [address] | [phone] | + + + + + ECG [...] | | | | | writer editor Roberto Stevens | | | | [...] disease. | | | Signed by: Irina Sam Brian Sign Date/Time: 05/15/2019 9:53 PM | [...] | | | | Signed by: Irina Sam Brian | | Sign Date/Time: 05/15/2019 9:53 PM | + + + +---------+ + + | Performing | Address | City/State/[facility] | Phone Number | | [...] effusion. Signed by: | | | Irina Sam, Jose Sign Date/Time: 05/15/2019 8:52 PM | [...] | | | | Signed by: Irina Sam Brian | | Sign Date/Time: 05/15/2019 8:52 [...] effusion. Signed by: | | | Irina Sam, Jose Sign Date/Time: 05/15/2019 8:52 PM | [...] | | | | Signed by: Irina Sam Brian | | Sign Date/Time: 05/15/2019 8:52 PM | + + + +---------+ + + | Performing | Address | City/State/[facility] | Phone Number | | [...] | Negative portable chest. Signed by: Irina Sam, Jose | [facility] | | Sign Date/Time: [...] | | | | Signed by: Irina Sam Brian | | Sign Date/Time: 05/15/2019 8:47 [...] ALBERTO | | | | performed at [facility];[address] | | LABORATORY | | | | [address];[place] | | | | | | [address] | | | | + + + + + + + + | Specimen | + + | | + + + + + + + | Performing | Address | City/State/Zipcode | Phone Number | | Organization | | | | + + + + + | [facility] | [address] | [place] [address] | [phone] | + + + + + CK Total (05/15/2019 8:24 PM PDT) + + + + + + | Component | Value | Ref Range | Performed | Pathologist | | | | | At | Signature | + + + + + + | CK TOTAL | 68Comment: Testing | 55 - 400 U/L | [facility] | | | | performed at [facility];[address] | | LABORATORY | | | | [address];[place] | | | | | | [address] | | | | + + + + + + + + | Specimen | + + | Blood | + + + + + + + | Performing | Address | City/State/Zipcode | Phone Number | | Organization | | | | + + + + + | [facility] | [address] | [place] [address] | [phone] | + + + + + Type [...] + + + | BB BAND | [id number] | | [facility] | | | | | | LABORATORY | | + + + + + + | BB BAND | Testing performed at | | [facility] | | | | [address] | | LABORATORY | | | | [address];[place] [address] | | | | + + + + + + + + | Specimen | + + | Blood | + + + + + + + | Performing | Address | City/State/Zipcode | Phone Number | | Organization | | | | + + + + + | [facility] | [address] | [place] [address] | [phone] | + + + + + Troponin I (05/15/2019 8:24 PM PDT) + + + + + + | Component | Value | Ref Range | Performed | Pathologist | | | | | At | Signature | + + + + + + | Troponin I | 0.031Comment: 0.04 | 0.00 - 0.04 | [facility] | | | | ng/mL or [...] at | | | | | | [facility];[address] [facility] | | | | | | [address];[place] [address] | | | | + + + + + + + + | Specimen | + + | Blood | + + + + + + + | Performing | Address | City/State/Zipcode | Phone Number | | Organization | | | | + + + + + | [facility] | [address] | [place] [address] | [phone] | + + + + + PTT (05/15/2019 8:24 PM PDT) + + + + + + | Component | Value | Ref Range | Performed | Pathologist | | | | | At | Signature | + + + + + + | PTT | 26Comment: Testing | 23 - 32 seconds | [facility] | | | | performed at [facility];[address] | | LABORATORY | | | | [address];[place] | | | | | | [address] | | | | + + + + + + + + | Specimen | + + | Blood | + + + + + + + | Performing | Address | City/State/Zipcode | Phone Number | | Organization | | | | + + + + + | [facility] | [address] | [place] [address] | [phone] | + + + + + Protime INR (05/15/2019 8:24 PM PDT) + + + + + + | Component | Value | Ref Range | Performed | Pathologist | | | | | At | Signature | + + + + + + | INR | 0.9Comment: REFERENCE | | [facility] | | | | RANGE:0.9 - [...] [facility];[address] | | | | | | [address];[place], [place] | | | | | | [address] | | | | + + + + + + + + | Specimen | + + | Blood | + + + + + + + | Performing | Address | City/State/Zipcode | Phone Number | | Organization | | | | + + + + + | [facility] | [address] | [place] [address] | [phone] | + + + + + Comprehensive [...] [facility];[address] | | | | | | [facility];[place], [place] | | | | | | [address] | | | | + + + + + + + + | Specimen | + + | Blood | + + + + + + + | Performing | Address | City/State/Zipcode | Phone Number | | Organization | | | | + + + + + | [facility] | [address] | [place] [address] | [phone] | + + + + + CBC [...] | | | Absolute | performed at [facility];[address] | [address] | LABORATORY | | | | [address];[place] | | | | | | [address] | | | | + + + + + + + + | Specimen | + + | Blood | + + + + + + + | Performing | Address | City/State/Zipcode | Phone Number | | Organization | | | | + + + + + | [facility] | [email or web address] | [place] [address] | [phone] | + + + + + documented [...] | | | | | dose on [facility] 05/16/19 at 0030 | | AM PDT [...] | | dose on Joselyn 05/16/19 at 0900 | | AM PDT [...] | | | | First dose on [facility] 05/16/19 at 0015 | | PM PDT [...] | | | dose on Mon05/16/19 at 0030, Shake | | | | [...] | | | dose on Mon05/16/19 at 0800 | | | | | [...] 8:35 | | | | | on Mon05/16/19 at 0900, | | AM PDT | [...] | | | DAILY, First dose on [facility] 05/16/19 | | AM PDT | | [...] | | | | | | use [place] 10/325 if ordered. If | | | [...] +------+---+---+ | HYDROmorphone (DILAUDID) | Given | 04/08/20 | 1 mg | | | | [...] | | | dose on Mon05/16/19 at 0800, For 2 | | | [...] | | | NIGHTLY, First dose on Joselyn 05/16/19 | | | | | | | [...] | | | | | dose on [facility] 05/16/19 at 0045, | | | | [...] | | | | | | | 4156-1994 Use NIGHT DOSE for | | | | | | | doses scheduled: HS, | | | | | | | Nighttime 6451-4840 If the BG is | | | [...] | | First dose on Mon05/16/19 at 0900 | | [...] | | | | First dose on [facility] 05/16/19 at 0900 | | AM PDT [...] | | dose on Joselyn 05/16/19 at 0630, | | | | [...] | | | | First dose on [facility] 05/16/19 at | | AM PDT | | [...]
--- OUTSIDE RECORDS SUMMARY | ~2019-09-09 | XMS | Encounter Summary ---
Demographics + + + | Address | [address] | | | [place] [address] | + + + | Home Phone [...] + | Sammi Kohler | ECON | [place] [address] | | + + + + + Care Team Providers + +------+ + | Care Line Ordering Clinician Name | Role | Phone | [...] Specialty | Home Health | Diagnoses | Sirena, | | | | Services | Services | Essential | Mireya Calixto NP | | | | Required | | hypertension | [address] | | | | | | [address] | [address] | | | | | | diabetes | [address] | | | | | | mellitus | [place], [place] | | | | | | with | [address] | | | | | | hyperglycemi | Phone: | | | | | | a, with | [phone] | | | | | | long-term | Fax: | | | | | | current use | [phone] | | | | | | of insulin | | | | | | | ([facility]) | | | | | | [...] + + | 07/09/ | Telephone | [facility] | Mireya Pack, | Other (concerns | | 2019 | | [facility] [address] | [place] [address] | about medications) | | | | [address] | [address] [place], | | | | | [place], [place] | [place] [address] | | | | | [address] | [phone] | | | | | [phone] | | | +--------+ + + + [...] call from Araseli, Please call her at [phone] Heidi Moody Call returned to Elizabeth, no answer, left VM with clinic phone number. Left VM to call back. elephone Encounter - Lucia Amos RN - 07/15/2019 9:47 AM PDTCall placed to Elizabeth, no answer, left VM with clinic phone number. elephone Encounter - Lucia Amos RN - 07/12/2019 2:07 PM PDTContacted Elizabeth at [facility] [phone], no answer, left VM with clinic phone numb er. Informed to add HAND CLOTH EXAMINER to patient's services with them. Left VM to call back. Per TE dated 07/08/19, PARMINDER Hamilton documented that patient prefers to work with [employer] [phone] . elephone Encount er - Mj Montoya - 07/12/2019 12:37 PM PDTPer TCM telephone encounter rikki has a home agency coming into his house on Monday, Monday, Wednesdays. Clinical RN can call santiago light to find out what agency he is utilizing and ask for additional services. Closed Home Health referral elepho ne Encounter - eMl Morton District Recruiter - 07/11/2019 1:49 PM PDTPended home hea lt referral for approval.Electronically signed by Mel Morton District Recruiter at 1:50 PM PDTTelephone Encounter - Mireya Pack NP - 07/11/2019 10:57 AM PDTAdd HAND CLOTH EXAMINER to home health referral 10:5 7 AM PDTTelephone Encounter - Mel Morton, District Recruiter - 07/10/2019 4:11 PM PDT Please advise. [...] | | 2019 | Visit | | [place] [address] | | | | | | [address] [place], | | | | | | [place] [address] | | | | | | [phone] | | | | | | | | +--------+---------+ + + + | 09/29/ | Office | Urology | Mireya Pack, | | | 2019 | Visit | | [place] [address] | | | | | | [address] [place], | | | | | | [place] [address] | | | | | | [phone] | | | | | | | | | | | | Toy Wild, DO | | | | | | [address] | | | | | | [place] [address] | | | | | | [phone] | | | | | | | [...]
--- OUTSIDE RECORDS SUMMARY | ~2019-09-09 | XMS | Encounter Summary ---
Demographics + + + | Address | [address] [facility] [address] | | | [place] [address] | + + + | Home Phone [...] + | Sammi Kohler | ECON | [place] [address] | | + + + + + Care Team Providers + +------+ + | Care Roller Engraver Name | Role | Phone | + +------+ + PCP | Unavailable | + +------+ + Encounter Details +--------+ + + + + | Date | Type | Department | Care Team | Description | +--------+ + + + + | 02/16/ | Emergency | [facility] | Jose Flor, | Hyperglycemia; | | 2013 | | [facility]ICAL CENTER | MD Darrick MAHER | Dizziness | | | | EMERGENCY CENTER | [place] [address] | | | | | [address] [facility] | [phone] | | | | | [place], [place] | | | | | | [address] | | | | | | [phone] | | | +--------+ + + + [...] Notes by Jose Flor MD at 02/16/13 1057 Author: Jose Flor MD Service: (none) Author Type: Physician Filed: 02/18/13 6488 Date of Service: 02/16/131056 Status: Signed Dispatch Machine Runner: Jose Flor MD (Physician) [facility] Department of [...] Sy Fierro MD; Location: [facility] MAIN OR ; Service: Plastics; Laterality: [...] Narrative Lives in assisted, IADL, full code Family History Problem Relation [...] following: GLUCOSE 276 (*) Testing performed at [facility];[address] [place] [address];[place] [address] CREATININE 1.46 (*) Testing performed at [facility];[address] [place] [address];[place] [address] Albumin 3.5 (*) Testing performed at [facility];[address] [place] [address] A/G 0.9 (*) Testing performed at [facility];[address] [place] [address];[place] [address] EGFR 53 (*) All other components within normal limits CBC W/AUTO DIFF (REFLEX TO MANUAL) Results Procedure Component Value Units Date/Time Complete Metabolic Panel [[id number]] (Abnormal) Collected:02/16/13 1012 Specimen Information:Blood Updated:02/16/13 1036 [...] 53 (L) mL/min/1.73m2 CBC w Auto Diff [[id number]] Collected:02/16/13 1012 Specimen Information:Blood Updated:02/16/13 1022 WBC [...] With Details Comments Contact Info CITLALY Kent [address] [facility] [address] Discharge Medications: New Prescriptions No new medications Additional Documentation Procedures Jose Flor MD 02/18/13 1258 documented in this e ncounter Plan of Treatment +--------+---------+ + + + | Date | Type | Specialty | Care Team | Description | +--------+---------+ + + + | 09/10/ | Office | Geriatric Medicine | Mireya Pack, | | | 2019 | Visit | | CUSTOMER SERVICE REP [address] | | | | | | [address] [place], | | | | | | [place] [address] | | | | | | [phone] | | | | | | | | +--------+---------+ + + + | 09/29/ | Office | Urology | Mireya Pack, | | | 2020 | Visit | | CUSTOMER SERVICE REP [address] | | | | | | [address] [place], | | | | | | [place] [address] | | | | | | [phone] | | | | | | | | | | | | Toy Wild, DO | | | | | | [address] | | | | | | [place] [address] | | | | | | [phone] | | | | | | | | +--------+---------+ + + + documented as of this encounter Procedures + +--------+ + + + | Procedure Name | Priori | Date/Time | Associated Diagnosis | Comments | | | ty | | | | + +--------+ + + + | EXTERNAL LAB: [facility] | Routin | 02/16/2013 | | Results [...] in this encounter Results External Lab: [facility] (02/16/2013 10:12 AM PST) + + + + + + | Component | Value | Ref Range | Performed | Pathologist | | | | | At | Signature | + + + + + + | WBC | 7.9Comment: Testing | 3.8 - 11.0 K/uL | EXTERNAL | | | | performed at [facility];[address] | | LAB | | | | [address];[place] | | | | | | [address] | | | | + + + + + + | Non- | 4.96Comment: Testing | 4.20 - 5.70 | EXTERNAL | | | Red Blood | performed at [facility];[address] | M/uL | LAB | | | Cells | [address];[place] | | | | | Counted | [address] | | | | + + + + + + | Hemoglobin | 13.5Comment: Testing | 13.2 - 17.0 | EXTERNAL | | | | performed at [facility];[address] | g/dL | LAB | | | | [address];[place] | | | | | | [address] | | | | + + + + + + | Hematocrit, | 40.2Comment: Testing | 39.0 - 50.0 % | EXTERNAL | | | POC | performed at [facility];[address] | | LAB | | | | [address];[place] | | | | | | [address] | | | | + + + + + + | MCV | 80.9Comment: Testing | 80.0 - 100.0 fl | EXTERNAL | | | | performed at [facility];[address] | | LAB | | | | [address];[place] | | | | | | [address] | | | | + + + + + + | MCH | 27.1Comment: Testing | 27.0 - 34.0 pg | EXTERNAL | | | | performed at [facility];[address] | | LAB | | | | [address];[place] | | | | | | [address] | | | | + + + + + + | MCHC | 33.5Comment: Testing | 32.0 - 35.5 | EXTERNAL | | | | performed at [facility];888 | g/dL | LAB | | | | [address];[place] | | | | | | [address] | | | | + + + + + + | RDW-CV | 46.4Comment: Testing | 37 - 53 fl | EXTERNAL | | | | performed at [facility];[address] | | LAB | | | | [address];[place] | | | | | | [address] | | | | + + + + + + | Platelet | 256Comment: Testing | 150 - 400 K/uL | EXTERNAL | | | Count | performed at [facility];[address] | | LAB | | | Plasma | [address];[place] | | | | | | [address] | | | | + + + + + + | MPV | 7.7Comment: Testing | fl | EXTERNAL | | | | performed at [facility];[address] | | LAB | | | | [address];[place] | | | | | | [address] | | | | + + + + + + | Differentia | AUTOMATEDComment: | | EXTERNAL | | | l Type | Testing performed at | | LAB | | | | [facility];[address] | | [address];[place] [address] | | | | + + + [...] EXTERNAL | | | | performed at [facility];[address] | mmol/L | LAB | | | | [address];[place] | | | | | | [address] | | | | + + + + + + | K | 3.9Comment: Testing | 3.5 - 4.9 | EXTERNAL | | | | performed at [facility];[address] | mmol/L | LAB | | | | [address];[place] | | | | | | [address] | | | | + + + + + + | Cl | 102Comment: Testing | 99 - 109 mmol/L | EXTERNAL | | | | performed at [facility];[address] | | LAB | | | | [address];[place] | | | | | | [address] | | | | + + + + + + | CO2 | 29Comment: Testing | 23 - 32 mmol/L | EXTERNAL | | | | performed at [facility];[address] | | LAB | | | | [address];[place] | | | | | | [address] | | | | + + + + + + | Anion Gap | 10Comment: Testing | 5 - 20 mmol/L | EXTERNAL | | | | performed at [facility];[address] | | LAB | | | | [address];[place] | | | | | | [address] | | | | + + + + + + | Glucose, | 276 (H)Comment: Testing | 65 - 99 mg/dL | EXTERNAL | | | Fasting | performed at [facility];[address] | | LAB | | | | [address];[place] | | | | | | [address] | | | | + + + + + + | BUN | 21Comment: Testing | 8 - 25 mg/dL | EXTERNAL | | | | performed at [facility];[address] | | LAB | | | | [address];[place] | | | | | | [address] | | | | + + + + + + | Creatinine | 1.46 (H)Comment: Testing | 0.70 - 1.30 | EXTERNAL | | | | performed at [facility];[address] | mg/dL | LAB | | | | [address];[place] | | | | | | [address] | | | | + + + + + + | BUN/Creatin | 14Comment: Testing | | EXTERNAL | | | ine Ratio | performed at [facility];[address] | | LAB | | | | [address];[place] | | | | | | [address] | | | | + + + + + + | Calcium | 9.0Comment: Testing | 8.5 - 10.2 | EXTERNAL | | | | performed at [facility];888 | mg/dL | LAB | | | | [address];[place] | | | | | | [address] | | | | + + + + + + | Protein, | 7.4Comment: Testing | 6.3 - 8.2 g/dL | EXTERNAL | | | Total | performed at [facility];[address] | | LAB | | | | [address];[place] | | | | | | [address] | | | | + + + + + + | Albumin | 3.5 (L)Comment: Testing | 3.6 - 5.0 g/dL | EXTERNAL | | | | performed at [facility];[address] | | LAB | | | | [address];[place] | | | | | | [address] | | | | + + + + + + | Globulin | 3.8Comment: Testing | 1.3 - 4.9 g/dL | EXTERNAL | | | | performed at [facility];[address] | | LAB | | | | [address];[place] | | | | | | [address] | | | | + + + + + + | A/G Ratio | 0.9 (L)Comment: Testing | 1.0 - 2.4 | EXTERNAL | | | | performed at [facility];[address] | | LAB | | | | [address];[place] | | | | | | [address] | | | | + + + + + + | Bilirubin | 0.3Comment: Testing | 0.1 - 1.5 mg/dL | EXTERNAL | | | Total | performed at [facility];[address] | | LAB | | | | [address];[place] | | | | | | [address] | | | | + + + + + + | ALP, | 103Comment: Testing | 35 - 115 U/L | EXTERNAL | | | External | performed at [facility];[address] | | LAB | | | | [address];[place] | | | | | | [address] | | | | + + + + + + | AST | 35Comment: Testing | 10 - 45 U/L | EXTERNAL | | | | performed at [facility];[address] | | LAB | | | | [address];[place] | | | | | | [address] | | | | + + + + + + | ALT | 31Comment: Testing | 10 - 65 U/L | EXTERNAL | | | | performed at [facility];[address] | | LAB | | | | [address];[place] | | | | | | [address] | | | | + + + [...] | | | | | | at [facility];[address] | | | | | | [address];[place] [address] | | | | + + + [...]
--- OUTSIDE RECORDS SUMMARY | ~2019-09-09 | XMS | Encounter Summary ---
Demographics + + + | Address | [address] | | | [place] [address] | + + + | Home Phone [...] Sammi Kohler | ECON | [place] [address] | | + + + + + Care Team Providers + +------+ + | Care Vibratory Pile Driver Name | Role | Phone | [...] | Specialty | Anticoagulati | Diagnoses | [facility], | [facility] | | | Services | on | Chronic | Mireya Calixto NP | Anticoagulati | | | Required | | a-fib (HCC) | [address] | on Clinic | | | | | | [address] [facility] | [place] | | | | | | [address] | [address] | | | | | | [place], [place] | [place], | | | | | | [address] | [place] [address] | | | | | | Phone: | Phone: | | | | | | [phone] | [phone] | | | | | | Fax: | Fax: | | | | | | [phone] | [phone] | + + + + + + + Encounter Details +--------+ + + + + | Date | Type | Department | Care Team | Description | +--------+ + + + + | 08/06/ | Anti-coag | [facility] | Mireya Pack, | Longstanding | | 2020 | visit | CENTER | SMALL PRODUCTS II ASSEMBLER [address] | persistent atrial | | | | ANTICOAGULATION | [address] [place], | fibrillation (HCC) | | | | CLINIC [place] | [place] [address] | (Primary Dx); Atrial | | | | [address] | [phone] | fibrillation with | | | | [place], [place] | | RVR (HCC) | | | | [address] | Woollum, Jeni, MACHINE TECH | | | | | [phone] | [address] | | | | | | [place] [address] | | | | | | [phone] | | | | | | | [...] CONSULT REFERRING PROVIDER: Mireya Pack Np [address] [address] PRIMARY CARE PHYSICIAN: Mireya Pack NP INDICATION [...] that he lives alone and has a critical access hospital nurse coming to his house twice a [...] of GE junction Hypercholesterolemia 07/08/2013 Hyperlipidemia 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 ENDOSCOPY; Service: Gastroen terology; Laterality: N/A; HERNIA REPAIR 07/03/2013 Procedure: LAPAROSCOPIC - HERNIA - INCISIONAL; Surgeon: Jevon Vargas DO; Location: [facility] MAIN OR; Service: General; Laterality: N/A; KNEE SURGERY rt knee, patella LEG SURGERY LLE OTHER SURGICAL HISTORY UNLISTED PROCEDURE ARTHROSCOPY OTHER SURGICAL HISTORY Left 05/05/2014 SKIN LESION EXCISION - Procedure: EXCISION - LESION - FROZEN SECTION; Surgeon: Sy murcia MD; Location: [facility] MAIN OR; Service: Plastics; Laterality: Left; forearm SKIN BIOPSY SKIN CANCER EXCISION Left 10/10/2012 Procedure: EXCISION - SKIN CANCER; Surgeon: Sy Fierro MD; Location: [facility] MAIN OR; Service: Plastics; Laterality: Left; upper arm and upper back w/frozen section UPPER GASTROINTESTINAL ENDOSCOPY UPPER GASTROINTESTINAL ENDOSCOPY 03/03/2013 Procedure: ESOPHAGOGASTRODUODENOSCOPY; Surgeon: Howie Gibson MD; Location: [facility] ENDOSCOPY; Se rvice: Gastroenterology; [...] file Gets together: Not on file Attends episcopal service: Not on file Active member of [...] 3. I have placed a call to [facility] to speak with home health nurse. I [...] | | 2019 | Visit | | SMALL PRODUCTS II ASSEMBLER [address] | | | | | | [address] [place], | | | | | | [place] [address] | | | | | | [phone] | | | | | | | | +--------+---------+ + + + | 09/29/ | Office | Urology | Mireya Pack, | | | 2020 | Visit | | SMALL PRODUCTS II ASSEMBLER [address] | | | | | | [address] [place], | | | | | | [place] [address] | | | | | | [phone] | | | | | | | | | | | | Toy Wild, DO | | | | | | [address] | | | | | | [place] [address] | | | | | | [phone] | | | | | | | | +--------+---------+ + + + documented as of this encounter Visit Diagnoses + + | Diagnosis | + + | Longstanding persistent atrial fibrillation (HCC) - Primary | + + | Atrial fibrillation with RVR (HCC) Atrial fibrillation | + + documented in this encounter"
--- OUTSIDE RECORDS SUMMARY | ~2019-09-09 | XMS | Encounter Summary ---
Demographics + + + | Address | [address] [facility] | | | [place] [address] | + + + | Home Phone [...] Sammi Kohler | ECON | [place] [address] | | + + + + + Care Team Providers + +------+ + | Care Can Handler Name | Role | Phone | [...] + + | 05/12/ | Telephone | [facility] | Ivonne Hastings | Triage | | 2020 | | [facility] | H, RN | | | | | CARE [address] | | | | | | [place], [place] | | | | | | [address] | | | | | | [phone] | | | +--------+ + + + [...] Ivonne Hastings RN - 05/13/2019 10:31 AM [facility] triage call for [facility] Spoke with patient. Says His blood sugars [...] | | 2019 | Visit | | PIZZAMAKER [address] | | | | | | [address] [place], | | | | | | [place] [address] | | | | | | [phone] | | | | | | | | +--------+---------+ + + + | 09/29/ | Office | Urology | Mireya Pack, | | | 2020 | Visit | | PIZZAMAKER [address] | | | | | | [address] [place], | | | | | | [place] [address] | | | | | | [phone] | | | | | | | | | | | | Toy Wild W, DO | | | | | | [address] | | | | | | [place] [address] | | | | | | [phone] | | | | | | | | +--------+---------+ + + + documented as of this encounter Visit Diagnoses Not on filedocumented in this encounter"
--- OUTSIDE RECORDS SUMMARY | ~2019-09-09 | XMS | Encounter Summary ---
Demographics + + + | Address | [address] [facility] [address] | | | [place] [address] | + + + | Home Phone [...] + | Sammi Kohler | ECON | [place] [address] | | + + + + + Care Team Providers + +------+ + | Care Manipulator Operator Name | Role | Phone | + +------+ + PCP | Unavailable | + +------+ + Encounter Details +--------+ + + + + | Date | Type | Department | Care Team | Description | +--------+ + + + + | 09/18/ | Emergency | [facility] | Egli, Jayce J, | Abdominal | | 2013 | | MEDICAL CENTER | MD [address] | discomfort; Bloated | | | | EMERGENCY CENTER | [place], [place] | abdomen; S/P | | | | [address] | [address] | cholecystectomy; | | | | [place], [place] | [phone] | Elevated C-reactive | | | | [address] | | protein (CRP); Serum | | | | [phone] | | albumin decreased; | | | [...] 09/18/126[address] Date of Service: 09/18/12617 Status: Signed Brown Stock Washer: Melania R Harman, RN (Registered Nurse) Report from EVE Garces RN 09/18/12617 Jayce Rivera MD - 09/18/2012 4:06 AM PDTFormatting of this note might be different from the o riginal. ED Provider Notes by Jayce Allred MD at 09/18/12405 Author: Jayce Allred MD Service: (none) Author Type: Physician Filed: 09/18/122208 Date of Service: 09/18/12405 Status: Signed Brown Stock Washer: Jayce Allred MD (Physician) Related Notes: Related Note by Abimael Madrid PA-C (Physician Head Of It - Certifie d) filed at 09/18/12632 I have reviewed the note and supervised the mid-level provider. Jayce Allred MD 09/18/122208 itAbimael rodas PA-C - 09/18/2012 4:06 AM PDTFormatting of this note might be different from the origina l. ED Provider Notes by Abimael Madrid PA-C at 09/18/12405 Author: Abimael Madrid PA-C Service: (none) Author Type: Physician Head Of It - Gabrielle ertified Filed: 09/18/12632 Date of Service: 09/18/12405 Status: Signed Brown Stock Washer: Abimael Madrid PA-C (Physician Head Of It - Certified) Related Notes: Cosigned by Jayce Allred MD (Physician) filed at 09/18/122208 Procedures [facility] Department of Emergency Medicine History of [...] - CHOLECYSTECTOMY; Surgeon: Jevon Vargas DO; Location: [facility] MAIN OR; Service: General; Laterality: N/A; Prior [...] motor deficits, moving all extremities equally, equal transport specialist, no sensory deficit, Crainal nerves II-VII are [...] that would necessitate immediate return to the [facility] Department. I have discussed progression of illness [...] feel that there is no current emergent [facility] condition that warrants admission, transfer, or further [...] injection 100 mL (100 mL Intravenous Given 09/18/12 0516) Records Reviewed Old ED records reviewed (Using the electronic record system of [facility], Troy arellano reviewed the records with regard to the past medical/surgical history, previous medic ations, and allergies). Nursing notes reviewed for chief complaint, medications, clinical presentation and vital si gns. Surgical Note from 09/12/[address] Phone [address] Dr[address] Allred - ED Physician Laboratory Evaluation Results Procedure Component Value Units Date/Time Urine Microscopic [[id number]] Collected:09/18/12 0600 Specimen Information:Urine / Urine, Clean Catch Updated:09/18/12616 CBC w Auto Diff [[id number]] (Abnormal) Collected:09/18/12342 Specimen Information:Blood Updated:09/18/12 05 WBC 11.7 (H) K/uL RBC 4.43 M/uL [...] BASOPHILS ABS 0.1 K/uL Complete Metabolic Panel [[id number]] (Abnormal) Collected:09/18/12342 Specimen Information:Blood Updated:09/18/12 05 SODIUM 142 mmol/L POTASSIUM 3.9 mmol/L CHLORIDE [...] 24 U/L EGFR >60 mL/min/1.73m2 C-Reactive Protein [[id number]] (Abnormal) Collected:09/18/12342 Specimen Information:Blood Updated:09/18/12545 CRP 21.0 (H) mg/dL Amylase [[id number]] (Abnormal) Collected:09/18/12342 Specimen Information:Blood Updated:09/18/1246 AMYLASE 19 (L) U/L PT [[id number]] Collected:09/18/12342 Specimen Information:Blood Updated:09/18/12506 INR 1.1 PTT [[id number]] Collected:09/18/12342 Specimen Information:Blood Updated:09/18/127 APTT 29 seconds [...] 09/19/[address] [place] [facility] [address] [facility] Emergency Department Return to ED in 12 hours for recheck or sooner if any new or worsening symptoms. [address] [facility] [address] Jerrell Gutiérrez, DO As needed [address] [facility] [id number] Discharge Medications: New Prescriptions No new medications Abimael Madrid PA-C 09/18/12 0633 docuchaz light in this encounter Plan of Treatment +--------+---------+ + + + | Date | Type | Specialty | Care Team | Description | +--------+---------+ + + + | 09/10/ | Office | Geriatric Medicine | Mireya Pack, | | | 2019 | Visit | | PERSONAL FINANCIAL ADVISOR [address] | | | | | | [facility] [address] [place], | | | | | | [place] [address] | | | | | | [phone] | | | | | | | | +--------+---------+ + + + | 09/29/ | Office | Urology | Mireya Pack, | | | 2019 | Visit | | PERSONAL FINANCIAL ADVISOR [address] | | | | | | [facility] [address] [place] [facility], | | | | | | [place] [address] | | | | | | [phone] | | | | | | | | | | | | Toy Wild W, DO | | | | | | [address] | | | | | | [place] [address] | | | | | | [phone] | | | | | | | [...]
--- OUTSIDE RECORDS SUMMARY | ~2019-09-09 | XMS | Encounter Summary ---
Demographics + + + | Address | [address] | | | [place] [address] | + + + | Home Phone [...] + | Sammi Kohler | ECON | [place] [address] | | + + + + + Care Team Providers + +------+ + | Care Lubricating Specialist Name | Role | Phone | + +------+ + PCP | Unavailable | + +------+ + Encounter Details +--------+ + + + + | Date | Type | Department | Care Team | Description | +--------+ + + + + | 03/30/ | Hospital | [facility] | Kwan Chao, | Chest pain; | | 2011 | Encounter | [facility] | MD Darrick MAHER | Hypertension | | | | CLINICAL DECISION | [place] [address] | | | | | [address] | [phone] | | | | | [place], [place] | | | | | | [address] | | | | | | [phone] | | | +--------+ + + + [...] Date of Service: 03/30/11 1432 Status: Signed Insurance Billing Specialist: Nicole Palmer RN (Registered Nurse) Pt transported [...] Date of Service: 03/30/11 1356 Status: Signed Insurance Billing Specialist: Nir Faith RN (Registered Nurse) Patient and physician locums urgent care (Mrs Kohler) both confirm that patient is competent to sign legal consent. NIR FAITH RN onver ivana Transaction, Provider Unknown - 03/30/2011 11:17 AM PST Progress Notes by Gilberto Lama RN at 03/30/11 1117 Author: Gilberto Lama RN Service: (none) Author Type: Policy Director Filed: 03/30/11 1146 Date of Service: 03/30/11 1117 Status: Signed Insurance Billing Specialist: Gilberto Lama RN (Policy Director) Case Management: Discharge plan is to return to home and family to transport. ADL independe nt and has a PCP. No home needs identified at this time. onver ivana Transaction, Provider Unknown - 03/30/2011 7:33 AM PST Progress Notes by Yulissa Recinos RP at 03/30/11732 Author: Yulissa Recinos RPH Service: (none) Author Type: Pharmacist Filed: 03/30/1134 Date of Service: 03/30/11732 Status: Signed Insurance Billing Specialist: Yulissa Recinos RPH (Pharmacist) Renal Dosing Monitoring: [...] MD Service: (none) Author Type: Physician Filed: 03/31/11627 Date of Service: 03/30/11702 Status: Signed Insurance Billing Specialist: Kwan Chao MD (Physician) [facility] Service: Hospitalist Admission History & Physical [...] Complaint Patient presents with Chest Pain since 033 This pt is a poor historian. The [...] test a couple of months ago in [place], but couldn't run do to leg ashley [...] Filed: 03/30/11 1546 Date of Service: 03/30/11 154 Status: Signed Insurance Billing Specialist: Jeni Dean NP (Nurse Practitioner) Procedures: 1. NM CARDIOVASCULAR STRESS TEST [MQC9456 (Custom)] [facility]: Diagnostic Imaging/Nuclear Medicine Cardiac Stress Test Note Pharmacologic Stress test [facility] with low level treadmill. Symptoms reported: Dyspnea and light headedness; resolved. Rhythm changes: None Ectopy: None ST/T wave changes: None Medications administered: Regadenoson 0.4 mg Nuclear images to follow. GUILLERMINA DEVRIES ARNP 03/30/2011 3:45 PM documented in this encounter ED Notes Jayce Parkinson PA-C - 03/31/2011 5:34 PM PST ED Provider Notes by Jayce Parkinson PA-C at 03/31/11 6862 Author: Jayce Parkinson PA-C Service: (none) Author Type: Physician Crm Functional Analyst - Bisi fimila Filed: 03/31/11 1739 Date of Service: 03/31/111733 Status: Signed Insurance Billing Specialist: Jayce Parkinson PA-C (Physician Crm Functional Analyst - Certified) Related Notes: Cosigned by Norah [...] 04/02/11819 Date of Service: 03/31/111733 Status: Signed Insurance Billing Specialist: Norah Barker MD (Physician) Related Notes: Related Note by Jayce Parkinson PA-C (Physician Crm Functional Analyst - Certified) radu iled at 03/31/111738 I have reviewed the note and supervised the mid-level provider. Norah Barker MD 04/02/11819 onversion Transactio n, Provider Unknown - 03/30/2011 6:16 AM PST ED Notes by Melania Hammer RN at 03/30/11615 Author: Melania Hammer RN Service: (none) Author Type: Registered Nurse Filed: 03/30/11615 Date of Service: 03/30/11615 Status: Signed Insurance Billing Specialist: Melania Hammer RN (Registered Nurse) Report from EVE Mirza RN 03/30/11615 orah Lawton MD - 03/30/2011 4:29 AM PSTFormatting of this note might be different from the or iginal. ED Provider Notes by Norah Barker MD at 03/30/11428 Author: Norah Barker MD Service: (none) Author Type: Physician Filed: 03/30/11645 Date of Service: 03/30/11428 Status: Signed Insurance Billing Specialist: Norah Barker MD (Physician) [facility] Department of Emergency [...] troponin. Patient will be placed on the electronic device monitor to ensure no life thre atening [...] There is no evidence of arrhythmia, acute DC, pneumonia, effusion, pneumothorax, anemia, le ukocytosis, thrombocytopenia, electrolyte imbalance, or liver failure. The following medications were given to the patient while in the Emergency Department sodium chloride 3 mL Intravenous Q8H Records Reviewed Nursing notes. Records unavailable. No previous ED visits for review. Laboratory Evaluation Results Procedure Component Value Ref Range Flag Date/Time Cardiac Panel [[id number]] Abnormal Collection: 03/30/11 0430 Order Status: Completed [...] ng/mL CK-MB Index 0.7 POC cardiac troponin [[id number]] Collection: 03/30/11437 Order Status: Completed Resulted: 03/30/11450 POC CARDIAC TROPONIN 0.00 0.00 - 0.10 ng/mL I personally reviewed the lab results and they have been posted to the chart. Pertinent po sitive and negative findings have been addressed appropriately. Radiology and EKG Evaluation Imaging Results XR Chest AP Portable (Preliminary result) Result time:03/30/11445 ED Interpretation Documented by Norah Barker MD (03/30/11445, [facility] Emergency Department, Emergency Medicine) This ED initial [...] from 04:25: Sinus bradycardia at 57 bpm. NE, QRS, QT, and axis are normal. No ST segmen t elevations or depression. No significant Q waves. Good R wave progression through the prec ordial leads. No acute ischemia. No previous EKG for comparison. This study has been inde pendently viewed and interpreted by me. ED Diagnoses Final diagnoses Chest pain Hypertension Diabetes Disposition: ED Disposition Admit/Observation Diagnosis?: chest pain r/o DC, DM, HTN Requested Unit:: Acute Care Bed [...] | | 2019 | Visit | | RD LAB TECHNICIAN [address] | | | | | | [address] [place], | | | | | | [place] [address] | | | | | | [phone] | | | | | | | | +--------+---------+ + + + | 09/29/ | Office | Urology | Mireya Pack, | | | 2020 | Visit | | RD LAB TECHNICIAN [address] | | | | | | [address] [place], | | | | | | [place] [address] | | | | | | [phone] | | | | | | | | | | | | Toy Wild, DO | | | | | | [address] | | | | | | [place] [address] | | | | | | [phone] | | | | | | | [...] Ramos Conversion - 09/29/2018 12:47 AM PDT HISTORY: [...] + | This procedure was resulted in [facility] (the cardiology system). Please | | | see the Media tab in Chart Review to see the result for this | | | procedure. | | + + + + + | Procedure Note | + + | Joaquin Ramos - 09/29/2018 12:48 AM PDT This procedure was resulted in [facility] | | (the cardiology system). Please seethe [...] Conversion - 09/29/2018 12:47 AM PDT NORAH Emre GRXR CHEST 1 VIEW03/30/2011 | | 4:35 [...]
--- OUTSIDE RECORDS SUMMARY | ~2019-09-09 | XMS | Encounter Summary ---
Demographics + + + | Address | [address] | | | [place] [address] | + + + | Home Phone [...] Sammi Kohler | ECON | [place] [address] | | + + + + + Care Team Providers + +------+ + | Care Color Consultant Name | Role | Phone | [...] + + | 05/30/ | Telephone | [facility] | Sanjuanita Rodriguez RN | TCM - Hosp [facility] | | 2019 | | MAIL CLERK BILLS | | | | | | [address]NA[address] | | | | | | [address] | | | | | | [place] | | | | | | [address] | | | | | | [phone] | | | +--------+ + + + [...] Care Management for follow-up on discharge from: Long-Term Facility Eligible for TCM Billing LOS [id number]? yes - Eligible for TCM billing through 06.12.2019 Patient questions/concerns needing provider review: None at this time BACKGROUND Admission Date: 05/15/19 Discharge Date: 05/18/19 Discharge Disposition: Long-Term Facility - SNF Principle Discharge Diagnosis: Abnormality [...] wants Medication Literacy: Were you able to slat pickler your medications after discharge? Yes Reviewed all [...] cane. and Discharged home with home health. [facility] for physical therapy and fci. Receives help from: home care agency RECOMMENDATION Disposition: Safe to continue in home setting with the support of caregivers. Future Appointments Date Time Provider Department Center 06/03/2019 1:50 PM Romie Trent MD [facility] Patient states he was unaware of this appointment and he was an no show. Does not wish assi st to reschedule as he states his knee is doing a lot better. Had a telephone follow up appo intment with primary care provider 06.03 with no changes made to plan of [...] | | 2019 | Visit | | LOADER HELPER [address] | | | | | | [address] [place], | | | | | | [place] [address] | | | | | | [phone] | | | | | | | | +--------+---------+ + + + | 09/29/ | Office | Urology | Mireya Pack, | | | 2020 | Visit | | LOADER HELPER [address] | | | | | | [address] [place], | | | | | | [place] [address] | | | | | | [phone] | | | | | | | | | | | | Toy Wild, DO | | | | | | [address] | | | | | | [place] [address] | | | | | | [phone] | | | | | | | | +--------+---------+ + + + documented as of this encounter Visit Diagnoses Not on filedocumented in this encounter
--- OUTSIDE RECORDS SUMMARY | ~2019-09-09 | XMS | Encounter Summary ---
Demographics + + + | Address | [address] | | | [place] [address] | + + + | Home Phone [...] Organization | [facility] | | | and [place] | + + + | Address | Unknown | + + + | Phone | Unavailable | + + + Support + + + + + | Name | Relationship | Address | Phone | + + + + + | Sammi Kohler | ECON | [place] [address] | | + + + + + Care Team Providers + +------+ + | Care Early Head [employer] Teacher Name | Role | Phone | + +------+ + PCP | Unavailable | + +------+ + Encounter Details +--------+ + + + + | Date | Type | Department | Care Team | Description | +--------+ + + + + | 12/02/ | Hospital | [facility] | Surendra, Trent | Dizziness; Hypoxia; | | 2013 - | Encounter | [facility] | Niles Márquez MD [address] | Somnolence; Diabetes | | | | CLINICAL DECISION | [address] | mellitus, type 2 | | 12/03/ | | [address] | [place] [address] | ([facility]); Fall at home, | | 2013 | | [place], [place] | [phone] | subsequent | | | | [address] | | encounter | | | | [phone] | | | +--------+ + + + [...] Date of Service: 12/03/13 1257 Status: Signed Photo Manager: Trent Mukherjee MD (Physician) [facility]: Hospitalist Discharge Summary Date of [...] management worked on his discharge back to [facility] facility. He was discharged stable with recommendations [...] - CHOLECYSTECTOMY; Surgeon: Jevon Vargas DO; Location: [facility] MAIN OR; Service: General; Laterality: N/A; Abdominal surgery Cholecystectomy Skin cancer excision 10/10/2012 Procedure: EXCISION - SKIN CANCER; Surgeon: Sy Fierro MD; Location: [facility] MAIN OR ; Service: Plastics; Laterality: Left; upper arm and upper back w/frozen section Esophagogastroduodenoscopy 03/03/2013 Procedure: ESOPHAGOGASTRODUODENOSCOPY; Surgeon: Howie Gibson MD; Location: [facility] ENDOSCOPY; S ervice: Gastroenterology; Laterality: N/A; Colonoscopy 03/04/2013 Procedure: COLONOSCOPY; Surgeon: Howie Gibson MD; Location: [facility] ENDOSCOPY; Service: Gastroe nterology; Laterality: [...] apnea and to resume CPAP use at [facility]. Low salt and diabetic diet for better blood sugar and blood pressure control. Take the current list of medications as prescribed including the newer medications as presc ribed. Do not use the Clonidine patch anymore. 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 We sent them to a specific pharmacy, so go there to get them. [facility] [place], [place] - [id number] [place] [address] - amLODIPine 10 MG tablet - insulin glargine 100 UNIT/ML injection [address] [place] [id number] Discharge took more 35 minutes, to include [...] Note by Ana Snyder PT at 12/03/13 7951 Author: Ana Snyder PT Service: (none) Author Type: Physical Therapist Filed: 12/03/13 142 Date of Service: 12/03/13 1364 Status: Signed Photo Manager: Ana Snyder PT (Physical Therapist) 12/03/13 3501 PT Last Visit PT Received On 12/03/13 [...] front wheeled Additional Comments Lives alone in [facility]. 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 Prior Function Level of [place] Independent with functional mobility;Independent with ADLs;Independe nt with IADLs Lives With Alone Receives Help From Other (Comment) ([facility] staff) Employment Retired for age RLE [...] caregiver (range=5 13 points) or discharged to [facility] (range=0 6 points). (Ramírez et al. 1995) 12/03/13 1355 Tinetti Assessment Tool: Balance Tasks [...] Management by Nir Faith RN at 12/03/13 1850 Author: Nir Faith RN Service: (none) Author Type: Registered Nurse Filed: 12/03/13 2972 Date of Service: 12/03/13 115 Status: Signed Photo Manager: Nir Faith RN (Registered Nurse) Called several CPAP providers before locating business that managed pt's CPAP needs. [employer] [facility] provided the CPAP originally and state [...] compliance. If pt is accepted back to [facility] they will arrange discharge transportation. onver ivana Transaction, Provider Unknown - 12/02/2013 9:45 PM PDT Case Management by QUINN Urias at 12/02/132144 Author: QUINN Urias Service: (none) Author Type: Rehabilitation Services Coordinator Filed: 12/02/132145 Date of Service: 12/02/132144 Status: Signed Photo Manager: QUINN Urias (Rehabilitation Services Coordinator) Discharge planning: CM spoke with pt's RN regarding discharge needs. Per their report, chetan clyde did not identify needs and feel that the pt does not need to be seen by CM at this time. I encouraged them to enter a CM consult as needs arise. onver ivana Transaction, Provider Unknown - 12/02/2013 2:21 PM PDT Case Management by iNr Faith RN at 12/02/13 1421 Author: Nir Faith RN Service: (none) Author Type: Registered Nurse Filed: 12/03/13 1130 Date of Service: 12/02/131420 Status: Addendum Photo Manager: Nir Faith RN (Registered Nurse) Related Notes: [...] 12/02/131322 Date of Service: 12/02/131322 Status: Signed Photo Manager: Carlene Friedman RPH (Pharmacist) Clinical Pharmacy Note: Renal Monitoring Norah Gr 57 y.o. male Ht Readings from Last 1 Encounters: 12/02/13 1.803 m (5' 10.98") Wt Readings from Last 1 Encounters: 12/02/13 106.595 kg (235 lb) CREATININE Date Value Range Status 12/02/2013 1.11 0.70 - 1.30 mg/dL Final Testing performed at [facility];[address] [place] [address];[place] [address] CREATININE: 1.11 (12/02/13 0553) Estimated creatinine clearance [...] 12/02/132108 Date of Service: 12/02/13719 Status: Signed Photo Manager: Trent Mukherjee MD (Physician) [facility]: Hospitalist Admission History & Physical [...] - CHOLECYSTECTOMY; Surgeon: Jevon Vargas DO; Location: [facility] MAIN OR; Service: General; Laterality: N/A; Abdominal surgery Cholecystectomy Skin cancer excision 10/10/2012 Procedure: EXCISION - SKIN CANCER; Surgeon: Sy Fierro MD; Location: [facility] MAIN OR ; Service: Plastics; Laterality: Left; upper arm and upper back w/frozen section Esophagogastroduodenoscopy 03/03/2013 Procedure: ESOPHAGOGASTRODUODENOSCOPY; Surgeon: Howie Gibson MD; Location: [facility] ENDOSCOPY; S ervice: Gastroenterology; Laterality: N/A; Colonoscopy 03/04/2013 Procedure: COLONOSCOPY; Surgeon: Howie Gibson MD; Location: [facility] ENDOSCOPY; Service: Gastroe nterology; Laterality: [...] Brother SOCIAL HISTORY: Patient lives in the [facility]. [facility]. Has good support system. He denies any recent history of smoking cigarettes but admits to smoking in the past. There is no history of recreational drug use at present or in the [facility]. He admits to drinking alcohol once [...] into the lungs as needed. Historical Provider cpxogpbtg-ejxzlnde-fsbnzcdcx hydroxide-simethicone Take 40 mLs by mouth daily [...] 384 QTC Calculation (Bezet) 469 Calculated P Ermine 21 Calculated R Ermine 38 Calculated T Ermine -15 Diagnosis Value: Normal sinus rhythm T wave abnormality, consider inferior ischemia Prolonged QT Abnormal ECG When compared with ECG of 30-NOV-2013 15:22, Premature atrial complexes are no longer Present This ECG contains Unconfirmed Interpretation Statements. See ED Record for Physician Inter pretation. Confirmed by MUSE READ ONLY, -COMPUTER ([id number]), food editor SANYA DUPONT ([id number]) on 12/02/2013 6:24:1 [...] anticoagulation other than ASA at this ti me. COPD: Seems to stable and not in [...] 12/02/13706 Date of Service: 12/02/13705 Status: Signed Photo Manager: Michelle Palomares RN (Registered Nurse) Transferred care of pt, report to Omaira Palomares RN 12/02/13706 onver ivana Transaction, Provider Unknown - 12/02/2013 6:55 AM PDT ED Notes by Michelle Palomares RN at 12/02/13654 Author: Michelle Palomares RN Service: (none) Author Type: Registered Nurse Filed: 12/02/13654 Date of Service: 12/02/13654 Status: Signed Photo Manager: Michelle Palomares RN (Registered Nurse) Pt returned from CT. Pt asleep, with snoring respirations. Michelle Palomares RN 12/02/13654 onver ivana Transaction, Provider Unknown - 12/02/2013 6:53 AM PDT ED Notes by Doris Moya at 12/02/13652 Author: Doris Moya Service: (none) Author Type: Hide Selector Filed: 12/02/13652 Date of Service: 12/02/13652 Status: Signed Photo Manager: Doris Moya (Hide Selector) Pt returned from CT Doris Moya 12/02/13652 onver ivana Transaction, Provider Unknown - 12/02/2013 6:08 AM PDT ED Notes by Michelle Palomares RN at 12/02/13607 Author: Michelle Palomares RN Service: (none) Author Type: Registered Nurse Filed: 12/02/13607 Date of Service: 12/02/13607 Status: Signed Photo Manager: Michelle D Jelani, RN (Registered Nurse) Assumed care of pt, report from Ivonne Palomares RN 12/02/1308 onver ivana Transaction, Provider Unknown - 12/02/2013 5:48 AM PDT ED Notes by Suresh Marin RN at 12/02/1348 Author: Suresh Marin RN Service: (none) Author Type: Registered Nurse Filed: 12/02/1351 Date of Service: 12/02/13547 Status: Signed Photo Manager: Suresh Marin RN (Registered Nurse) Pt here [...] 12/02/1310 Date of Service: 12/02/13539 Status: Signed Photo Manager: Suresh Marin RN (Registered Nurse) No obvious trauma to scalp or back. Suresh Marin RN 12/02/13609 onver ivana Transaction, Provider Unknown - 12/02/2013 5:37 AM PDT ED Notes by Leslie Allen RN at 12/02/1337 Author: Leslie Allen RN Service: (none) Author Type: Registered Nurse Filed: 12/02/1357 Date of Service: 12/02/13536 Status: Signed Photo Manager: Leslie Allen RN (Registered Nurse) Pt placed on 2 liters nasal cannula, SPO2 93%. Leslie Allen RN 12/02/13556 onver ivana Transaction, Provider Unknown - 12/02/2013 5:28 AM PDT ED Notes by Onel Kenney RN at 12/02/13527 Author: Onel Kenney RN Service: (none) Author Type: Registered Nurse Filed: 12/02/13527 Date of Service: 12/02/13527 Status: Signed Photo Manager: Onel Kenney RN (Registered Nurse) Bed: 03 Expected date: Expected time: Means of arrival: Comments: obert De La Cruz DO - 12/02/2013 5:28 AM PDTFormatting of this note might be different from t he original. ED Provider Notes by Robert Salmon DO at 12/02/13527 Author: Robert Salmon DO Service: Emergency Department Author Type: Physician Filed: 12/02/13 0717 Date of Service: 12/02/13527 Status: Addendum Photo Manager: Robert Salmon DO (Physician) Related Notes: Original Note by Robert Salmon DO (Physician) filed at 12/02/1316 [facility] Department of Emergency Medicine 5:28 AM History [...] - CHOLECYSTECTOMY; Surgeon: Jevon Vargas DO; Location: [facility] MAIN OR; Service: General; Laterality: N/A; Abdominal surgery Cholecystectomy Skin cancer excision 10/10/2012 Procedure: EXCISION - SKIN CANCER; Surgeon: Sy Fierro MD; Location: [facility] MAIN OR ; Service: Plastics; Laterality: Left; upper arm and upper back w/frozen section Esophagogastroduodenoscopy 03/03/2013 Procedure: ESOPHAGOGASTRODUODENOSCOPY; Surgeon: Howie Gibson MD; Location: [facility] ENDOSCOPY; S ervice: Gastroenterology; Laterality: N/A; Colonoscopy 03/04/2013 Procedure: COLONOSCOPY; Surgeon: Howie Gibson MD; Location: [facility] ENDOSCOPY; Service: Gastroe nterology; Laterality: [...] into the skin nightly. 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 Records Reviewed Old medical records. Nursing notes. Previous ED visits for similar and unrelated complaints. Laboratory Evaluation Results Procedure Component Value Ref Range Date/Time Troponin I, Lab [[id number]] Collected: 12/02/13552 Order Status: Completed Updated: 12/02/13646 Specimen Information: Blood TROPONIN I <0.020 0.00 - 0.10 ng/mL Basic metabolic panel [[id number]] (Abnormal) Collected: 12/02/13552 Order Status: Completed Updated: [...] EGFR >60 >60 mL/min/1.73m2 CBC with differential [[id number]] (Abnormal) Collected: 12/02/13552 Order Status: Completed Updated: 12/02/13641 Specimen Information: Blood WBC 11.5 (H) 3.8 [...] 0.0 0 - 0.1 K/uL Urine microscopic [[id number]] (Abnormal) Collected: 12/02/1345 Order Status: Completed Updated: 12/02/1335 Specimen Information: Urine / Urine, Clean Catch WBC 1-5 0 - 5 /hpf RBC 1-5 0 - 2 /hpf EPITHELIAL 1-5 /lpf BACTERIA 1+ (A) NONE SEEN BNP [[id number]] Collected: 12/02/13 0553 Order Status: Completed Updated: 12/02/13 0632 Specimen Information: Blood BRAIN NATRIURETIC PEPTIDE 9.5 0 - 100 pg/mL POC clinitek 10 [[id number]] (Abnormal) Collected: 12/02/1347 Order Status: Completed Updated: [...] Documented by Robert Salmon DO (12/02/13 07:07:31, [facility] Emergency Department, Emergency Medicine) Intra-axial: no parenchymal [...] Documented by Robert Salmon DO (12/02/13 06:38:07, [facility] Emergency Department, Emergency Medicine) No focal lung [...] the inferior leads Intervals- normal QTc- normal Ermine- normal Compared to prior- 11/30/2013 with similar appearance EKG viewed independently and interpreted by me contemporaneously: Robert Salmon DO ED Diagnoses Final diagnoses Dizziness Hypoxia Somnolence Disposition: ED Disposition Admit/Observation Bed request special needs: None Diagnosis?: Dizziness Follow-up Information None Discharge Medications: New Prescriptions No new medications This chart has been created using [employer] Speech Recognition software. The chart has been reviewed and there may still exist sound alike word errors. Procedures Additional Documentation Procedures Attending Note: Documentation assistance provided by DEREK WU (Kari). Information recorded by the scribe has [...] 12/03/13950 Date of Service: 12/03/13950 Status: Signed Photo Manager: Joy Johnson RN (Registered Nurse) Problem: Pain [...] | | 2019 | Visit | | [facility] CLE[employer]ER [address] | | | | | | [address] [place], | | | | | | [place] [address] | | | | | | [phone] | | | | | | | | +--------+---------+ + + + | 09/29/ | Office | Urology | Mireya Pack, | | | 2019 | Visit | | PAPER CLEANER [address] | | | | | | [address] [place], | | | | | | [place] [address] | | | | | | [phone] | | | | | | | | | | | | [place], | | | | | | [address] | | | | | | [place] [address] | | | | | | [phone] | | | | | | | [...] | LAB | | | | [address];[place], [place] | | | | | | [address] | | | | + + + [...] performed at [facility];[address] | | LAB | | | | [address];[place] | | | | | | [address] | | | | + + + [...] | | | | | [place] [address] | | | | + + + + + + | Non- | 4.97Comment: Testing | 4.20 - 5.70 | EXTERNAL | | | Red Blood | performed at [facility], [address] | M/uL | LAB | | | Cells | [address], | | | | | Counted | [place] [address] | | | | + + + + + + | Hemoglobin | 13.2Comment: Testing | 13.2 - 17.0 | EXTERNAL | | | | performed at [facility], [address] | g/dL | LAB | | | | [address], | | | | | | [place] [address] | | | | + + + + + + | Hematocrit, | 40.7Comment: Testing | 39.0 - 50.0 % | EXTERNAL | | | POC | performed at [facility], [address] | | LAB | | | | [address], | | | | | | [place] [address] | | | | + + + + + + | MCV | 82.0Comment: Testing | 80.0 - 100.0 fl | EXTERNAL | | | | performed at [facility], [address] | | LAB | | | | [address], | | | | | | [place] [address] | | | | + + + + + + | MCH | 26.7 (L)Comment: Testing | 27.0 - 34.0 pg | EXTERNAL | | | | performed at [facility], [address] | | LAB | | | | [address], | | | | | | [place] [address] | | | | + + + + + + | MCHC | 32.5Comment: Testing | 32.0 - 35.5 | EXTERNAL | | | | performed at [facility], [address] | g/dL | LAB | | | | [address], | | | | | | [place] [address] | | | | + + + + + + | RDW-CV | 40.7Comment: Testing | 37 - 53 fl | EXTERNAL | | | | performed at [facility], [address] | | LAB | | | | [address], | | | | | | [place] [address] | | | | + + + + + + | Platelet | 255Comment: Testing | 150 - 400 K/uL | EXTERNAL | | | Count | performed at [facility], [address] | | LAB | | | Plasma | [address], | | | | | | [place] [address] | | | | + + + + + + | MPV | 7.7Comment: Testing | fl | EXTERNAL | | | | performed at [facility], [address] | | LAB | | | | [address], | | | | | | [place] [address] | | | | + + + + + + | Differentia | AUTOMATEDComment: | | EXTERNAL | | | l Type | Testing performed at | | LAB | | | | [facility], [address] | | | | | | [place] | | | | | | [address] | | | | + + + [...] | | | | | [place] [address] | | | | + + + + + + | % Monocytes | 8.0Comment: Testing | % | EXTERNAL | | | | performed at [facility], [address] | | LAB | | | | [address], | | | | | | [place] [address] | | | | + + + + + + | % | 4.3Comment: Testing | % | EXTERNAL | | | Eosinophils | performed at [facility], [address] | | LAB | | | | [address], | | | | | | [place] [address] | | | | + + + + + + | % Basophils | 0.6Comment: Testing | % | EXTERNAL | | | | performed at [facility], [address] | | LAB | | | | [address], | | | | | | [place] [address] | | | | + + + + + + | Absolute | 5.7Comment: Testing | 1.9 - 7.4 K/uL | EXTERNAL | | | Segmented | performed at [facility], [address] | | LAB | | | Neutrophils | [address], | | | | | | [place] [address] | | | | + + + + + + | Absolute | 3.7Comment: Testing | 1.0 - 3.9 K/uL | EXTERNAL | | | Lymphocytes | performed at [facility], [address] | | LAB | | | | [address], | | | | | | [place] [address] | | | | + + + + + + | Absolute | 0.9 (H)Comment: Testing | 0 - 0.8 K/uL | EXTERNAL | | | Monocytes | performed at [facility], [address] | | LAB | | | | [address], | | | | | | [place] [address] | | | | + + + + + + | Absolute | 0.5Comment: Testing | 0 - 0.5 K/uL | EXTERNAL | | | Eosinophils | performed at [facility], [address] | | LAB | | | | [address], | | | | | | [place] [address] | | | | + + + + + + | Absolute | 0.1Comment: Testing | 0 - 0.1 K/uL | EXTERNAL | | | Basophils | performed at [facility], [address] | | LAB | | | | [address], | | | | | | [place] [address] | | | | + + + [...] | | | | | [place] [address] | | | | + + + [...] | | | | performed at [facility], [address] | | LAB | | | | [address], | | | | | | [place] [address] | | | | + + + [...] | | | | performed at [facility], [address] | | LAB | | | | [address], | | | | | | [place] [address] | | | | + + + [...] | EXTERNAL | | | A1c | [place] Diabetes | | LAB | | | [...] | | | | performed at [facility], [address] | | | | | | [address] [facility], | | | | | | [place] [address] | | | | + + + [...] | | | | performed at [facility], [address] | | | | | | [facility], | | | | | | [place] [address] | | | | + + + [...] | | | | performed at [facility], [address] | | LAB | | | | [address], | | | | | | [place] [address] | | | | + + + + + + | Triglycerid | 236 (H)Comment: Testing | mg/dL | EXTERNAL | | | es | performed at [facility], [address] | | LAB | | | | [address], | | | | | | [place] [address] | | | | + + + + + + | HDL | 25 (L)Comment: Testing | mg/dL | EXTERNAL | | | | performed at [facility], [address] | | LAB | | | | [address], | | | | | | [place] [address] | | | | + + + + + + | LDL, | 60Comment: Testing | mg/dL | EXTERNAL | | | Calculated | performed at [facility], [address] | | LAB | | | | [address], | | | | | | [place] [address] | | | | + + + [...] | | | | | [place] [address] | | | | + + + + + + | K | 3.5Comment: Testing | 3.5 - 4.9 | EXTERNAL | | | | performed at [facility], [address] | mmol/L | LAB | | | | [address], | | | | | | [place] [address] | | | | + + + + + + | Cl | 103Comment: Testing | 99 - 109 mmol/L | EXTERNAL | | | | performed at [facility], [address] | | LAB | | | | [address], | | | | | | [place] [address] | | | | + + + + + + | CO2 | 32Comment: Testing | 23 - 32 mmol/L | EXTERNAL | | | | performed at [facility], [address] | | LAB | | | | [address], | | | | | | [place] [address] | | | | + + + + + + | Anion Gap | 9Comment: Testing | 5 - 20 mmol/L | EXTERNAL | | | | performed at [facility], [address] | | LAB | | | | [address], | | | | | | [place] [address] | | | | + + + + + + | Glucose, | 159 (H)Comment: Testing | 65 - 99 mg/dL | EXTERNAL | | | Fasting | performed at [facility], [address] | | LAB | | | | [address], | | | | | | [place] [address] | | | | + + + + + + | BUN | 16Comment: Testing | 8 - 25 mg/dL | EXTERNAL | | | | performed at [facility], [address] | | LAB | | | | [address], | | | | | | [place] [address] | | | | + + + + + + | Creatinine | 1.01Comment: Testing | 0.70 - 1.30 | EXTERNAL | | | | performed at [facility], [address] | mg/dL | LAB | | | | [address], | | | | | | [place] [address] | | | | + + + + + + | BUN/Creatin | 16Comment: Testing | | EXTERNAL | | | ine Ratio | performed at [facility], [address] | | LAB | | | | [address], | | | | | | [place] [address] | | | | + + + + + + | Calcium | 9.0Comment: Testing | 8.5 - 10.2 | EXTERNAL | | | | performed at [facility], [address] | mg/dL | LAB | | | | [address], | | | | | | [place] [address] | | | | + + + [...] | | | | | at [facility], [address] | | | | | | [facility], | | | | | | [place] [address] | | | | + + + [...] | LAB | | | | [address];[place] | | | | | | [address] | | | | + + + [...] [place] | | | | | | [address] | | | | + + + [...] | LAB | | | | [address];[place], [place] | | | | | | [address] | | | | + + + [...] maps | | | were analyzed. COMPARISON: 07-20 RIGHT COMMON CAROTID | | | BIFURCATION: [...] Rad Conversion - 09/21/2018 3:31 PM PDT ONRAH RUSSELL CAROTID DOPPLER, | | [id number]/27/2014 12:17 PM History: 57 years. Male. Syncope and dizziness. | | TECHNIQUE: A pulse Doppler high-frequency duplex color flow transducer was utilized. | | All velocity measurements are given in m/sec. Morrissey scale images, spectral wave forms, | | velocity measurements and color flow maps were analyzed. COMPARISON: 6-14 RIGHT COMMON | | CAROTID BIFURCATION:Mild nodular [...] [place] | | | | | | [address] | | | | + + + [...] [place] | | | | | | [address] | | | | + + + [...] 7:27AM Referring Provider | | | Line: [phone] ID: [id number] | | + + + [...] 2013 7:27AM | | Referring Provider Line: [phone] ID: [id number] | | | |Extraaxial Spaces: [...] Dec 02 2013 7:27AM Referring Provider Line: [phone] ID: [id number] | + + XR Chest [...] [place];[address] | | | | | | [facility];[place], [place] | | | | | | [address] | | | | + + + [...] + +---------+ + + External Lab: CBC (12/02/2013 5:53 AM PDT) + + + [...] | LAB | | | | [address];[place] | | | | | | [address] | | | | + + + + + + | Non- | 4.98Comment: Testing | 4.20 - 5.70 | EXTERNAL | | | Red Blood | performed at [facility];[address] | M/uL | LAB | | | Cells | [address];[place] | | | | | Counted | [address] | | | | + + + + + + | Hemoglobin | 13.3Comment: Testing | 13.2 - 17.0 | EXTERNAL | | | | performed at [facility];888 | g/dL | LAB | | | | [address];[place] | | | | | | [address] | | | | + + + + + + | Hematocrit, | 40.1Comment: Testing | 39.0 - 50.0 % | EXTERNAL | | | POC | performed at [facility];888 | | LAB | | | | [address];[place] | | | | | | [address] | | | | + + + + + + | MCV | 80.6Comment: Testing | 80.0 - 100.0 fl | EXTERNAL | | | | performed at [facility];888 | | LAB | | | | [address];[place] | | | | | | [address] | | | | + + + + + + | MCH | 26.6 (L)Comment: Testing | 27.0 - 34.0 pg | EXTERNAL | | | | performed at [facility];888 | | LAB | | | | [address];[place] | | | | | | [address] | | | | + + + + + + | MCHC | 33.0Comment: Testing | 32.0 - 35.5 | EXTERNAL | | | | performed at [facility];888 | g/dL | LAB | | | | [address];[place] | | | | | | [address] | | | | + + + + + + | RDW-CV | 41.6Comment: Testing | 37 - 53 fl | EXTERNAL | | | | performed at [facility];888 | | LAB | | | | [address];[place] | | | | | | [address] | | | | + + + + + + | Platelet | 255Comment: Testing | 150 - 400 K/uL | EXTERNAL | | | Count | performed at [facility];888 | | LAB | | | Plasma | [address];[place] | | | | | | [address] | | | | + + + + + + | MPV | 7.8Comment: Testing | fl | EXTERNAL | | | | performed at [facility];888 | | LAB | | | | [address];[place] | | | | | | [address] | | | | + + + + + + | Differentia | AUTOMATEDComment: | | EXTERNAL | | | l Type | Testing performed at | | LAB | | | | [facility];[address];[place] [address] | | | | + + + + + + | % Segmented | 72.4Comment: Testing | % | EXTERNAL | | | | performed at [facility];888 | | LAB | | | Neutrophils | [address];[place] | | | | | | [address] | | | | + + + + + + | % | 17.3Comment: Testing | % | EXTERNAL | | | Lymphocytes | performed at [facility];888 | | LAB | | | | [address];[place] | | | | | | [address] | | | | + + + + + + | % Monocytes | 6.7Comment: Testing | % | EXTERNAL | | | | performed at [facility];[address] | | LAB | | | | [address];[place] | | | | | | [address] | | | | + + + + + + | % | 3.2Comment: Testing | % | EXTERNAL | | | Eosinophils | performed at [facility];888 | | LAB | | | | [address];[place] | | | | | | [address] | | | | + + + + + + | % Basophils | 0.4Comment: Testing | % | EXTERNAL | | | | performed at [facility];[address] | | LAB | | | | [address];[place] | | | | | | [address] | | | | + + + + + + | Absolute | 8.3 (H)Comment: Testing | 1.9 - 7.4 K/uL | EXTERNAL | | | Segmented | performed at [facility];888 | | LAB | | | Neutrophils | [address];[place] | | | | | | [address] | | | | + + + + + + | Absolute | 2.0Comment: Testing | 1.0 - 3.9 K/uL | EXTERNAL | | | Lymphocytes | performed at [facility];[address] | | LAB | | | | [address];[place] | | | | | | [address] | | | | + + + + + + | Absolute | 0.8Comment: Testing | 0 - 0.8 K/uL | EXTERNAL | | | Monocytes | performed at [facility];[address] | | LAB | | | | [address];[place] | | | | | | [address] | | | | + + + + + + | Absolute | 0.4Comment: Testing | 0 - 0.5 K/uL | EXTERNAL | | | Eosinophils | performed at [facility];[address] | | LAB | | | | [address];[place] | | | | | | [address] | | | | + + + + + + | Absolute | 0.0Comment: Testing | 0 - 0.1 K/uL | EXTERNAL | | | Basophils | performed at [facility];[address] | | LAB | | | | [address];[place] | | | | | | [address] | | | | + + + [...] performed at [facility] | | LAB | | | | [address];[place], [place] | | | | | | [address] | | | | + + + [...] [place] | | | | | | [address] | | | | + + + + + + | K | 3.8Comment: Testing | 3.5 - 4.9 | EXTERNAL | | | | performed at [facility];888 | mmol/L | LAB | | | | [address];[place] | | | | | | [address] | | | | + + + + + + | Cl | 104Comment: Testing | 99 - 109 mmol/L | EXTERNAL | | | | performed at [facility];[address] | | LAB | | | | [address];[place] | | | | | | [address] | | | | + + + + + + | CO2 | 32Comment: Testing | 23 - 32 mmol/L | EXTERNAL | | | | performed at [facility];[address] | | LAB | | | | [address];[place] | | | | | | [address] | | | | + + + + + + | Anion Gap | 9Comment: Testing | 5 - 20 mmol/L | EXTERNAL | | | | performed at [facility];[address] | | LAB | | | | [address];[place] | | | | | | [address] | | | | + + + + + + | Glucose, | 290 (H)Comment: Testing | 65 - 99 mg/dL | EXTERNAL | | | Fasting | performed at [facility];[address] | | LAB | | | | [address];[place] | | | | | | [address] | | | | + + + + + + | BUN | 14Comment: Testing | 8 - 25 mg/dL | EXTERNAL | | | | performed at [facility];[address] | | LAB | | | | [address];[place] | | | | | | [address] | | | | + + + [...] [place] | | | | | | [address] | | | | + + + + + + | Calcium | 8.7Comment: Testing | 8.5 - 10.2 | EXTERNAL | | | | performed at [facility];888 | mg/dL | LAB | | | | [address];[place] | | | | | | [address] | | | | + + + [...] | at [facility];[address] [place] [address] | | | | | | [facility];[place] [address] | | | | + + + [...] 30-NOV-2013 | | | | | | 15:22,Premature [...] | | | | | | food editor SAYNA DUPONT (8) | | | | | [...] [place] | | | | | | [address] | | | | + + + + + + | RBC, UA | 1-5Comment: Testing | 0 - 2 /hpf | EXTERNAL | | | | performed at [facility];[address] | | LAB | | | | [address];[place] | | | | | | [address] | | | | + + + + + + | Epithelial | 1-5Comment: Testing | /lpf | EXTERNAL | | | Cells | performed at [facility];[address] | | LAB | | | | [address];[place] | | | | | | [address] | | | | + + + + + + | Bacteria, | 1+ (A)Comment: Testing | | EXTERNAL | | | UA | performed at [facility];[address] | | LAB | | | | [address];[place] | | | | | | [address] | | | | + + + [...]
--- OUTSIDE RECORDS SUMMARY | ~2019-09-09 | XMS | Encounter Summary ---
Demographics + + + | Address | [address] | | | [place] [address] | + + + | Home Phone [...] | Sammi Kohler | ECON | [place] [address] | | + + + + + Care Team Providers + +------+ + | Care Coating Machine Operator Name | Role | Phone | + +------+ + PCP | Unavailable | + +------+ + Encounter Details +--------+ + + + + | Date | Type | Department | Care Team | Description | +--------+ + + + + | 04/28/ | Hospital | [facility] | Edenilson Jimenez | Abdominal pain; | | 2015 | Encounter | [facility] | [address] Dehydration; | | | | CLINICAL DECISION | [address] | Development delay; | | | | [address] | [place] [address] | Diabetes mellitus, | | | | [place], [place] | [phone] | type 2 (HCC); GERD | | | | [address] | | without esophagitis; | | | | [phone] | | HTN (hypertension); | | | [...] Summaries by Joe Chao MD at 04/28/14 1284 Author: Joe Chao MD Service: Hospitalist Author Type: Physician Filed: 04/28/14 5923 Date of Service: 04/28/141328 Status: Signed Rn Provider Relations: Joe Chao MD (Physician) [facility] Service: Hospitalist Discharge Summary [...] PRESENTATION: 04/28/14 0[address]apse All [facility] Service: Hospitalist Admission History & Physical [...] no relief. Patient is a resident of [facility]. PMHx: diabetes mellitus, atrial fibrillation, hypertensi on, [...] his living facility had only RLQ discomfort DEEP TISSUE MASSAGE THERAPIST and no emesis etc either way all [...] CHOLECYSTECTOMY; Surgeon: Jevon Vargas DO; Location: [facility] MAIN OR; Service: General; Laterality: N/A; Abdominal surgery Cholecystectomy Skin cancer excision 10/10/2012 Procedure: EXCISION - SKIN CANCER; Surgeon: Sy Fierro MD; Location: [facility] MAIN OR ; Service: Plastics; Laterality: Left; upper arm and upper back w/frozen section Esophagogastroduodenoscopy 03/03/2013 Procedure: ESOPHAGOGASTRODUODENOSCOPY; Surgeon: Howie Gibson MD; Location: [facility] ENDOSCOPY; S ervice: Gastroenterology; Laterality: N/A; Colonoscopy 03/04/2013 Procedure: COLONOSCOPY; Surgeon: Howie Gibson MD; Location: [facility] ENDOSCOPY; Service: Gastroe nterology; Laterality: N/A; Upper gastrointestinal endoscopy Skin biopsy Hernia repair 07/03/2013 Procedure: LAPAROSCOPIC - HERNIA - INCISIONAL; Surgeon: Jevon Vargas DO; Location: [facility] MAIN OR; Service: General; Laterality: N/A; Allergies Allergen Reactions Vitamin B12 Rash Prescriptions prior to admission Medication Sig Dispense Refill Albuterol Sulfate (VENTOLIN HFA IN) Inhale 2 puffs into the lungs as needed. 108 mcg/ac t Skgrx-R-Ytiqpmrqeclan (BEANO) TABS Take 150 Units by mouth [...] tablet Take 100 mg by mouth nightly. lyimggjny-xinqdtrr-yzkygacmh hydroxide-simethicone Take 40 mLs by mouth daily [...] Oral 79 20 96 % - - 03/23/15 0644 129/60 mmHg 98 F (36.7 C) [...] Range: 1.0-2.4 0.8 (L) Norah Gr (CSN: [id number]) (58 y.o. M) (Adm: 04/28/14) [id number] Radiology Results (last 7 days) Procedure Component Value Units Date/Time CT Abdomen & Pelvis without contrast [[id number]] Resulted: 04/28/14345 Order Status: Completed Updated: 04/28/14348 [...] 28 2014 3:46AM Referring Provider Ara e: [phone] ID: [id number] XR chest PA and lateral [[id number]] Order Status: Sent Updated: 04/28/14328 Disposition: returning to his DEEP TISSUE MASSAGE THERAPIST facilty Condition: Stable Code Status: Full Code [...] ensure patient is being discharged on his DEEP TISSUE MASSAGE THERAPIST meds except stopping t he naproxen and the imodium. Also adding metamucil. 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 You may get the following medications from [...] Note by Joy Johnson RN at 04/28/14 5846 Author: Joy Johnson RN Service: (none) Author Type: Registered Nurse Filed: 04/28/14 1421 Date of Service: 04/28/14 1419 Status: Signed Rn Provider Relations: Joy Johnson RN (Registered Nurse) Discharge instructions given to the patient. Advised to follow up with PCP, has katyt Saskia ay. 1 new rx given at this time. Called [facility] and let them know patient was coming back an d was going by dial a ride. Patient escorted out via wheelchair. onver ivana Transaction, Provider Unknown - 04/28/2014 1:40 PM PDT Case Management by Elaine Garcia RN at 04/28/14 1340 Author: Elaine Garcia RN Service: (none) Author Type: Registered Nurse Filed: 04/28/14 1340 Date of Service: 04/28/141339 Status: Signed Rn Provider Relations: Elaine Garcia RN (Registered Nurse) Discharge planning: [...] Nurse Filed: 04/28/14 1212 Date of Service: 04/28/141209 Status: Signed Rn Provider Relations: Taurus Mueller RN (Registered Nurse) Patient removed his IV. Spoke with patient stating I would like to start another IV. Patien t refused. Attempted to educate patient on importance of an IV and he stated he understood b ut still did not want another IV placed. Informed patient's nurse. Taurus Mueller RN inebe Ashley french, PT - 04/28/2014 10:00 AM PDTFormatting of this note might be different from t he original. Therapy Progress Note by Ashley Wright PT at 04/28/14 1000 Author: Ashley Wright PT Service: (none) Author Type: Physical Therapist Filed: 07/02/14 0947 Date of Service: 04/28/14 1000 Status: Addendum Rn Provider Relations: Ashley Wright PT (Physical Therapist) Related Notes: Original Note by Ashley Wright PT (Physical Therapist) filed at 04/28/14 1 104 04/28/14 1000 PT Last Visit PT Received On 04/28/14 Reason for Treatment Other (comment) (abdominal pain) Requires PT Follow Up Awaiting tx order Follow up PT Only? No Focus for Next Treatment Formal Balance Assessment PT Eval/Reassessment Date 04/28/14 Assistance Required 1 person Death Clearance Coordinator Needed No Home Environment Type of Home Assisted living Additional Comments Pt has everything he would need at his assistive living facility. Prior Function Level of [place] Independent with functional mobility;Modified independent with ADLs;M [...] Eval/Reassessment Date 04/28/14 Assistance Required 1 person Death Clearance Coordinator Needed No Precautions Other Precautions slight fall [...] Note by Joy Johnson RN at 04/28/14 0808 Author: Joy Johnson RN Service: (none) Author Type: Registered Nurse Filed: 04/28/14 0849 Date of Service: 04/28/14845 Status: Signed Rn Provider Relations: Joy Johnson, RN (Registered Nurse) Nurse called from [facility] for an update on Mr. Gr. Advised [...] 04/28/14715 Date of Service: 04/28/14715 Status: Signed Rn Provider Relations: Qian Acharya RPH (Pharmacist) Renal Dosing Monitoring: Norah Andrea Thomas 58 y.o. male Pharmacy dosing for renal function per Dr. Jimenez Medication(s): no adjustments Plan per protocol: Medication / Dose: CrCl 85.6 ml/min Scr 1.19 mg/dL Pharmacy will continue monitoring patient for appropriate dosing per renal function. 04/28/2014 7:14 AM Pharmacist: Qian Acharya onver ivana Transaction, Provider Unknown - 04/28/2014 6:56 AM PDT Progress Notes by Qian Acharya RPH at 04/28/14 0656 Author: Qian Acharya RPH Service: (none) Author Type: Pharmacist Filed: 04/28/1456 Date of Service: 04/28/14655 Status: Signed Rn Provider Relations: Qian Acharya RPH (Pharmacist) Combination may cause [...] 04/28/14315 Date of Service: 04/28/14315 Status: Signed Rn Provider Relations: Itzel Hussein RN (Registered Nurse) Return from CT, will continue to monitor. Itzel Hussein RN 04/28/14315 Kristian Vinson MD - 04/28/2014 12:50 AM PDT ED Provider Notes by Kristian Mae MD at 04/28/1449 Author: Kristian Mae MD Service: Emergency Department Author Type: Physician Filed: 04/28/14 1455 Date of Service: 04/28/1449 Status: Signed Rn Provider Relations: Kristian Mae MD (Physician) [facility] Department of Emergency Medicine 12:51 AM [...] cognitively impaired. Patient is a resident of [facility]. PMHx: diabetes mellitus, atrial fibrillation, hypertensi on, [...] CHOLECYSTECTOMY; Surgeon: Jevon Vargas DO; Location: [facility] MA[facility] OR; Service: General; Laterality: N/A; Abdominal surgery Cholecystectomy Skin cancer excision 10/10/2012 Procedure: EXCISION - SKIN CANCER; Surgeon: Sy Fierro MD; Location: [facility] MA[facility] OR ; Service: Plastics; Laterality: Left; upper arm and upper back w/frozen section Esophagogastroduodenoscopy 03/03/2013 Procedure: ESOPHAGOGASTRODUODENOSCOPY; Surgeon: Howie Gibson MD; Location: [facility] ENDOSCOPY; S ervice: Gastroenterology; Laterality: N/A; Colonoscopy 03/04/2013 Procedure: COLONOSCOPY; Surgeon: Howie Gibson MD; Location: [facility] ENDOSCOPY; Service: Gastroe nterology; Laterality: N/A; Upper gastrointestinal endoscopy Skin biopsy Hernia repair 07/03/2013 Procedure: LAPAROSCOPIC - HERNIA - INCISIONAL; Surgeon: Jevon Vargas DO; Location: [facility] MAIN OR; Service: General; Laterality: N/A; Prior to Admission medications Medication Sig Start Date End Date Taking? Authorizing Provider Albuterol Sulfate (VENTOLIN HFA IN) Inhale 2 puffs into the lungs as needed. 108 mcg/act Historical Provider Ebzxj-W-Eqtgtpogzodnj (BEANO) TABS Take 150 Units by mouth [...] daily. 180 mg at hs 11/30/13 11/30/14 [facility] carlyn Mae MD docusate sodium [...] 100 mg by mouth nightly. Historical Provider tpzizzlcw-xvtlqbja-rnyqczdba hydroxide-simethicone Take 40 mLs by mouth daily [...] sore throat CV/Resp: Negative for chest pain, axhnxclro-oy-eevrai, cough GI: Positive for abdominal pain, nausea, [...] this time. He appears cognitively unable to juvenile court judge his own condition accurately though he is [...] uncomfortable with the prospect of some impacted [facility] at this point in time when on repeat exam he still seems significantly tender. I th ink it most appropriate to admit him for observation for his abdominal pain for right now an d should his pain worsen Dr. Jimenez can consult with the surgeon for their opinion. ED Medication Administration from 04/27/2014 2766 to 04/28/2014 0422 Date/Time Order Dose Route Action Action by [...] Component Value Ref Range Date/Time C-reactive protein [[id number]] (Abnormal) Collected: 04/28/14126 Order Status: Completed Updated: 04/28/14403 CRP 1.0 (H) <0.5 mg/dL Comprehensive metabolic panel [[id number]] (Abnormal) Collected: 04/28/14126 Order Status: Completed Updated: [...] 65 U/L EGFR >60 >60 mL/min/1.73m2 Lipase [[id number]] Collected: 04/28/14126 Order Status: Completed Updated: 04/28/14248 Specimen Information: Blood LIPASE 149 73 - 393 U/L Amylase [[id number]] Collected: 04/28/14126 Order Status: Completed Updated: 04/28/14248 Specimen Information: Blood AMYLASE 32 25 - 115 U/L CBC W/Auto Diff (Reflex to Manual) [[id number]] (Abnormal) Collected: 04/28/14126 Order Status: Completed Updated: [...] 0.00 - 0.10 K/uL POC clinitek 10 [[id number]] (Abnormal) Collected: 04/28/14129 Order Status: Completed Updated: [...] 28 2014 3:46AM Referring Provider Ara bonilla: [phone] ID: [id number] Narrative: EXAM: CT ABDOMEN AND [...] Rate: 72. Normal sinus rhythm. Intervals normal. [place] normal. Non-specific T-wa ve flattening in III, [...] 04/28/14845 Date of Service: 04/28/14845 Status: Signed Rn Provider Relations: Joy Johnson RN (Registered Nurse) Problem: Pain [...] | | 2019 | Visit | | [facility] [address] | | | | | | [address] [place], | | | | | | [place] [address] | | | | | | [phone] | | | | | | | | +--------+---------+ + + + | 09/29/ | Office | Urology | Mireya Pack, | | | 2019 | Visit | | [facility] [address] | | | | | | [facility] [address] [place] | | | | | | [place] [address] | | | | | | [phone] | | | | | | | | | | | | [place], | | | | | | [address] | | | | | | [place] [address] | | | | | | [phone] | | | | | | | [...] | Fingerstick | performed at [facility] | | LAB | | | | [address];[place], [place] | | | | | | [address] | | | | + + + [...] | | | performed at [facility] | mmol/L | LAB | | | | [address];[place], [place] | | | | | | [address] | | | | + + + [...] | Fingerstick | performed at [facility] | | LAB | | | | [address];[place] | | | | | | [address] | | | | + + + [...] | cholecystectomy. RADIA Electronically signed by Norah | | | MD Matt on Apr 28 2014 3:46AM Referring Provider Line: | | | [phone] ID: [id number] | | + + + [...] 2014 | | 3:46AM Referring Provider Line: [phone] ID: [id number] | | | |Gallbladder/Bile Ducts: [...] 28 2014 3:46AM Referring Provider Ara e: [phone] ID: [id number] | + + External Lab: CBC (04/28/2014 1:27 AM PDT) + + + + + + | Component | Value | Ref Range | Performed | Pathologist | | | | | At | Signature | + + + + + + | WBC | 10.42Comment: Testing | 3.80 - 11.00 | EXTERNAL | | | | performed at [facility] | K/uL | LAB | | | | [address];[place] | | | | | | [address] | | | | + + + + + + | Non- | 4.67Comment: Testing | 4.20 - 5.70 | EXTERNAL | | | Red Blood | performed at [facility] | M/uL | LAB | | | Cells | [address];[place] | | | | | Counted | [address] | | | | + + + + + + | Hemoglobin | 11.8 (L)Comment: Testing | 13.2 - 17.0 | EXTERNAL | | | | performed at [facility] | g/dL | LAB | | | | [address];[place] | | | | | | [address] | | | | + + + + + + | Hematocrit, | 36.6 (L)Comment: Testing | 39.0 - 50.0 % | EXTERNAL | | | POC | performed at [facility];[address] | | LAB | | | | [address];[place] | | | | | | [address] | | | | + + + + + + | MCV | 78.3 (L)Comment: Testing | 80.0 - 100.0 fl | EXTERNAL | | | | performed at [facility] | | LAB | | | | [address];[place] | | | | | | [address] | | | | + + + + + + | MCH | 25.2 (L)Comment: Testing | 27.0 - 34.0 pg | EXTERNAL | | | | performed at [facility];[address] | | LAB | | | | [address];[place] | | | | | | [address] | | | | + + + + + + | MCHC | 32.2Comment: Testing | 32.0 - 35.5 | EXTERNAL | | | | performed at [facility] | g/dL | LAB | | | | [address];[place] | | | | | | [address] | | | | + + + + + + | RDW-CV | 41.6Comment: Testing | 37 - 53 fl | EXTERNAL | | | | performed at [facility];[address] | | LAB | | | | [address];[place] | | | | | | [address] | | | | + + + + + + | Platelet | 285Comment: Testing | 150 - 400 K/uL | EXTERNAL | | | Count | performed at [facility];[address] | | LAB | | | Plasma | [address];[place] | | | | | | [address] | | | | + + + + + + | MPV | 7.8Comment: Testing | fl | EXTERNAL | | | | performed at [facility];[address] | | LAB | | | | [address];[place] | | | | | | [address] | | | | + + + + + + | Differentia | AUTOMATEDComment: | | EXTERNAL | | | l Type | Testing performed at | | LAB | | | | [facility];[address];[place] [address] | | | | + + + + + + | % Segmented | 65.10Comment: Testing | % | EXTERNAL | | | | performed at [facility];[address] | | LAB | | | Neutrophils | [address];[place] | | | | | | [address] | | | | + + + + + + | % | 22.41Comment: Testing | % | EXTERNAL | | | Lymphocytes | performed at [facility];[address] | | LAB | | | | [address];[place] | | | | | | [address] | | | | + + + + + + | % Monocytes | 8.53Comment: Testing | % | EXTERNAL | | | | performed at [facility];[address] | | LAB | | | | [address];[place] | | | | | | [address] | | | | + + + + + + | % | 3.28Comment: Testing | % | EXTERNAL | | | Eosinophils | performed at [facility];[address] | | LAB | | | | [address];[place] | | | | | | [address] | | | | + + + + + + | % Basophils | 0.68Comment: Testing | % | EXTERNAL | | | | performed at [facility];[address] | | LAB | | | | [address];[place] | | | | | | [address] | | | | + + + + + + | Absolute | 6.78Comment: Testing | 1.90 - 7.40 | EXTERNAL | | | Segmented | performed at [facility];[address] | K/uL | LAB | | | Neutrophils | [address];[place] | | | | | | [address] | | | | + + + + + + | Absolute | 2.33Comment: Testing | 1.00 - 3.90 | EXTERNAL | | | Lymphocytes | performed at [facility];[address] | K/uL | LAB | | | | [address];[place] | | | | | | [address] | | | | + + + + + + | Absolute | 0.89 (H)Comment: Testing | 0.00 - 0.80 | EXTERNAL | | | Monocytes | performed at [facility];[address] | K/uL | LAB | | | | [address];[place] | | | | | | [address] | | | | + + + + + + | Absolute | 0.34Comment: Testing | 0.00 - 0.50 | EXTERNAL | | | Eosinophils | performed at [facility];[address] | K/uL | LAB | | | | [address];[place] | | | | | | [address] | | | | + + + + + + | Absolute | 0.07Comment: Testing | 0.00 - 0.10 | EXTERNAL | | | Basophils | performed at [facility];[address] | K/uL | LAB | | | | [address];[place] | | | | | | [address] | | | | + + + [...] | | | performed at [facility];[address] | | LAB | | | | [address];[place], [place] | | | | | | [address] | | | | + + [...] | | | performed at [facility];[address] | | LAB | | | | [address] [facility];[place] | | | | | | [address] | | | | + + + [...] | | | performed at [facility];[address] | | LAB | | | | [address];[place], [place] | | | | | | [address] | | | | + + + [...] | | | performed at [facility];[address] | mmol/L | LAB | | | | [address];[place] | | | | | | [address] | | | | + + + + + + | K | 3.7Comment: Testing | 3.5 - 4.9 | EXTERNAL | | | | performed at [facility];[address] | mmol/L | LAB | | | | [address];[place] | | | | | | [address] | | | | + + + + + + | Cl | 107Comment: Testing | 99 - 109 mmol/L | EXTERNAL | | | | performed at [facility];[address] | | LAB | | | | [address];[place] | | | | | | [address] | | | | + + + + + + | CO2 | 29Comment: Testing | 23 - 32 mmol/L | EXTERNAL | | | | performed at [facility];[address] | | LAB | | | | [address];[place] | | | | | | [address] | | | | + + + + + + | Anion Gap | 10Comment: Testing | 5 - 20 mmol/L | EXTERNAL | | | | performed at [facility];[address] | | LAB | | | | [address];[place] | | | | | | [address] | | | | + + + + + + | Glucose, | 148 (H)Comment: Testing | 65 - 99 mg/dL | EXTERNAL | | | Fasting | performed at [facility];[address] | | LAB | | | | [address];[place] | | | | | | [address] | | | | + + + + + + | BUN | 22Comment: Testing | 8 - 25 mg/dL | EXTERNAL | | | | performed at [facility];[address] | | LAB | | | | [address];[place] | | | | | | [address] | | | | + + + + + + | Creatinine | 1.19Comment: Testing | 0.70 - 1.30 | EXTERNAL | | | | performed at [facility];[address] | mg/dL | LAB | | | | [address];[place] | | | | | | [address] | | | | + + + + + + | BUN/Creatin | 19Comment: Testing | | EXTERNAL | | | ine Ratio | performed at [facility];[address] | | LAB | | | | [address];[place] | | | | | | [address] | | | | + + + + + + | Calcium | 8.7Comment: Testing | 8.5 - 10.5 | EXTERNAL | | | | performed at [facility];[address] | mg/dL | LAB | | | | [address];[place] | | | | | | [address] | | | | + + + + + + | Protein, | 7.0Comment: Testing | 6.3 - 8.2 g/dL | EXTERNAL | | | Total | performed at [facility];[address] | | LAB | | | | [address];[place] | | | | | | [address] | | | | + + + + + + | Albumin | 3.1 (L)Comment: Testing | 3.6 - 5.0 g/dL | EXTERNAL | | | | performed at [facility];[address] | | LAB | | | | [address];[place] | | | | | | [address] | | | | + + + + + + | Globulin | 3.9Comment: Testing | 1.3 - 4.9 g/dL | EXTERNAL | | | | performed at [facility];[address] | | LAB | | | | [address];[place] | | | | | | [address] | | | | + + + + + + | A/G Ratio | 0.8 (L)Comment: Testing | 1.0 - 2.4 | EXTERNAL | | | | performed at [facility];[address] | | LAB | | | | [address];[place] | | | | | | [address] | | | | + + + + + + | Bilirubin | 0.2Comment: Testing | 0.1 - 1.5 mg/dL | EXTERNAL | | | Total | performed at [facility];[address] | | LAB | | | | [address];[place] | | | | | | [address] | | | | + + + + + + | ALP, | 80Comment: Testing | 35 - 115 U/L | EXTERNAL | | | External | performed at [facility];[address] | | LAB | | | | [address];[place] | | | | | | [address] | | | | + + + + + + | AST | 16Comment: Testing | 10 - 45 U/L | EXTERNAL | | | | performed at [facility];[address] | | LAB | | | | [address];[place] | | | | | | [address] | | | | + + + + + + | ALT | 19Comment: Testing | 10 - 65 U/L | EXTERNAL | | | | performed at [facility];[address] | | LAB | | | | [address];[place] | | | | | | [address] | | | | + + + [...] | | | | at [facility];[address] [place] [address] | | | | | | 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
--- OUTSIDE RECORDS SUMMARY | ~2019-09-09 | XMS | Encounter Summary ---
Demographics + + + | Address | [address] | | | [place] [address] | + + + | Home Phone [...] + | Sammi Kohler | ECON | [place] [address] | | + + + + + Care Team Providers + +------+ + | Care Social Media Job Titles Name | Role | Phone | + +------+ + PCP | Unavailable | + +------+ + Encounter Details +--------+ + + + + | Date | Type | Department | Care Team | Description | +--------+ + + + + | 07/03/ | Hospital | [facility] | Jevon Key | Hernia | | 2013 | Encounter | [facility] | B, DO [address] | | | | | [address] | [address] | | | | | [place], [place] | [place] [address] | | | | | [address] | [phone] | | | | | [phone] | | | +--------+ + + + [...] + documented as of this encounter H&P Jevon Suarez DO - 07/03/2013 7:12 AM PDT H&P by Jevon Key DO at 07/03/13711 Author: Jevon Key DO Service: (none) Author Type: Physician Filed: 07/03/13711 Date of Service: 07/03/13711 Status: Signed Supervisor International Reservations: Jevon Key DO (Physician) Subjective: Patient ID: [...] - CHOLECYSTECTOMY; Surgeon: Jevon Key DO; Location: [facility] MAIN OR; Service: General; Laterality: N/A; Abdominal surgery Cholecystectomy Skin cancer excision 10/10/2012 Procedure: EXCISION - SKIN CANCER; Surgeon: Sy Fierro MD; Location: [facility] MAIN OR ; Service: Plastics; Laterality: Left; upper arm and upper back w/frozen section Esophagogastroduodenoscopy 03/03/2013 Procedure: ESOPHAGOGASTRODUODENOSCOPY; Surgeon: Howie Gibson MD; Location: [facility] ENDOSCOPY; S ervice: Gastroenterology; Laterality: N/A; Colonoscopy 03/04/2013 Procedure: COLONOSCOPY; Surgeon: Howie Gibson MD; Location: [facility] ENDOSCOPY; Service: Gastroe nterology; Laterality: N/A; Current [...] s encounter Miscellaneous Notes Op Note - Jevno Key DO - 07/03/2013 10:26 AM PDT Op Note by Jevon Key DO at 07/03/13 1026 Author: Jevon Key DO Service: General Surgery Author Type: Physician Filed: 07/03/13 1031 Date of Service: 07/03/13 1026 Status: Signed Supervisor International Reservations: Jevon Key DO (Physician) [facility] Service: General Surgery Operative Note Kevyn Guzman 07/03/2013 10:27 AM Pre-operative Diagnosis: Reducible umbilical hernia Post-operative Diagnosis: Severe rectus diastasis Procedure(s): lap repair of diastasis recti Surgeon: JEVON KEY DO Solid Waste Management Engineer(s): None Anesthesia: General endotrachial anesthesia Estimated Blood [...] | | 2019 | Visit | | [facility] [address] [facility] | | | | | | [address] [place], | | | | | | [place] [address] | | | | | | [phone] | | | | | | | | +--------+---------+ + + + | 09/29/ | Office | Urology | Mireya Pack, | | | 2019 | Visit | | [facility] [address] | | | | | | [address] [place], | | | | | | [place] [address] | | | | | | [phone] | | | | | | | | | | | | Toy Wild, DO | | | | | | [address] | | | | | | [place] [address] | | | | | | [phone] | | | | | | | [...] | LAB | | | | Breanna Jenkins;[place], [place] | | | | | | [address] | | | | + + + [...] Vick | | | | | | [address] | | | | + + + [...]
--- OUTSIDE RECORDS SUMMARY | ~2019-09-09 | XMS | Encounter Summary ---
Demographics + + + | Address | [address] | | | [place] [address] | + + + | Home Phone | | + + + | Preferred Language | Unknown | + + + | Marital Status | | + + + | Judaism Affiliation | 1027 | + + + [...] + | Sammi Kohler | ECON | [place] [address] | | + + + + + Care Team Providers + +------+ + | Care Clinical Program Manager Name | Role | Phone | + +------+ + PCP | Unavailable | + +------+ + Encounter Details +--------+ + + + + | Date | Type | Department | Care Team | Description | +--------+ + + + + | 10/23/ | Emergency | [facility] | Uriel New MD | Chest pain, | | 2018 | | MEDICAL CENTER | [address] | unspecified type; | | | | EMERGENCY CENTER | [place], [place] | CKD (chronic kidney | | | | [address] | [address] | disease) stage 3, | | | | [place], [place] | [phone] | GFR 30-59 ml/min; | | | | [address] | | Type 2 diabetes | | | | [phone] | | mellitus without | | | [...] Service: (none) Author Type: Physician Filed: 10/25/17 8047 Date of Service: 10/23/17812 Status: Signed Pipe Welder: Uriel New MD (Physician) [facility] Department of Emergency Medicine 11:29 PM [...] is taking w/o fail. 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 108 mcg/act Historical Provider Xwyjl-B-Xhaqijelynzwi (BEANO) TABS Take 150 Units by mouth [...] 200 mg by mouth daily. Historical Provider zlsbzwlrp-cwxjubji-huoxnwnwk hydroxide-simethicone Take 40 mLs by mouth daily [...] mg by mouth daily. 10/06/17 Mik sanchez, polyethylene glycol (GLYCOLAX) powder DISSOLVE 17GM IN [...] d evaluated for similar last night at [facility]. Will obtain records. Differential includes, b ut is not limited to: acute ID, unstable angina, thoracic aortic dissection, pneumothorax, P E, myocarditis, pericarditis, esophagitis, musculoskeletal disorder, pleurisy, anxiety, vs o ther Review of vitals BP 143/71 (BP Location: Left upper arm) | Pulse 80 | Temp 97.3 F (36.3 C) (Oral) | Resp 17 | SpO2 96% ====EKG Interpretation==== Time: 726 Rate: NSR Rhythm: 85 Mountain: Normal Intervals: Normal ST: No significant ST elevations or depressions T Waves: unchanged Other: none Compared to ekg done 10/21/17 Overall Impression: Non-specific EKG with no acute signs of ischemia Interpreted by Uriel New MD Rhythm strip analysis: NSR ====EKG Interpretation==== Time: 1236 Rate: 72 Rhythm: NSR Mountain: normal Intervals: notmal ST: No significant ST [...] Component Value Ref Range Date/Time Cardiac Panel [[id number]] (Abnormal) Collected: 10/23/17 0800 Order Status: Completed [...] 3.6 ng/mL CK-MB Index 1.9 Troponin I [[id number]] Collected: 10/23/17 0800 Order Status: Completed Updated: 10/23/17 0835 TROPONIN I <0.020 0.00 - 0.10 ng/mL POC cardiac troponin [[id number]] Collected: 10/23/17 0748 Order Status: Completed Updated: [...] images using automated exposure control were acquired [facility] the chest according to a CT angiography protocol. Multiplanar CT angiographic MIP recon structions were performed from the arterial phase data set. 3-D reconstructions were perfor med using the [employer] 3-D software and sent to PACS. IV [...] follow-up appointment in the next 1-2 days. [facility] Emergency Department Emergency Medicine As needed, If symp toms worsen [address] [facility] [address] Discharge Medications: Discharge Medication List as of 10/23/2017 1:12 PM Procedures Additional Documentation Procedures Uriel New MD 10/25/17 9869 onversion Transaction, Provider Unknown - 10/23/2017 7:51 AM PDTFormatting of this note might be different from t keaton original. ED Notes by Dianna Mcdermott RN at 10/23/17750 Author: Dianna Mcdermott RN Service: (none) Author Type: Registered Nurse Filed: 10/23/17751 Date of Service: 10/23/17750 Status: Signed Pipe Welder: Dianna Mcdermott RN (Registered Nurse) Pt c/o CP went to [facility] lastnight was sent home. Pt states Cp [...] | | 2019 | Visit | | [facility] [address] [facility] | | | | | | [address] [place], | | | | | | [place] [address] | | | | | | [phone] | | | | | | | | +--------+---------+ + + + | 09/29/ | Office | Urology | Mireya Pack, | | | 2019 | Visit | | [facility] [address] | | | | | | [address] [place], | | | | | | [place] [address] | | | | | | [phone] | | | | | | | | | | | | Toy Wild, DO | | | | | | [address] | | | | | | [place] [address] | | | | | | [phone] | | | | | | | [...] | | | | | | film or videotape editor Roberto Stevens | | | | [...] | Fingerstick | performed at [facility];[address] | | LAB | | | | [address]anna Jenkins;[place] | | | | | | [address] | | | | + + + [...] | | reconstructions were performed using the [employer] 3-D software and | | | sent [...] | | reconstructions were performed using the [employer] 3-D software and sent to PACS.IV | [...] + + + | NORAH GR 1955 61 years Male XR [...] Conversion - 09/19/2018 1:06 AM PDT NORAH [id number] years MaleXR | | CHEST 2 VIEW [...] | | | | | | ACUTE ID Testing | | | | | | performed at [facility] | | | | | | [address];[place], [place] | | | | | | [address] | | | | + + + [...] | | | | | ONLY, -COMPUTER (753), | | | | | | film or videotape editor Roberto Stevens | | | | [...]
--- OUTSIDE RECORDS SUMMARY | ~2019-09-09 | XMS | Encounter Summary ---
Demographics + + + | Address | [address] | | | [place] [address] | + + + | Home Phone [...] Sammi Kohler | ECON | [place] [address] | | + + + + + Care Team Providers + +------+ + | Care Reservationist Name | Role | Phone | + +------+ + | Mireya Pack NP | PCP | | + +------+ + Encounter Details +--------+ + + + + | Date | Type | Department | Care Team | Description | +--------+ + + + + | 06/03/ | Virtual | [facility] | Mireya Pack, | Essential | | 2020 | Office | [facility] [address] | DRIVER/GUIDE [address] | hypertension | | | Visit | [address] | [address] [place], | (Primary Dx); Type 2 | | | | [place], [place] | [place] [address] | diabetes mellitus | | | | [address] | [phone] | with diabetic | | | | [phone] | | polyneuropathy, with | | | [...] through the use of telemedicine. 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 Obesity, Class [...] MD; Location: [facility] ENDOSCOPY; Service: Gastroen terology; Laterality: [...] FROZEN SECTION; Surgeon: Sy murcia MD; Location: [facility] MAIN OR; Service: Plastics; Laterality: Left; forearm SKIN BIOPSY SKIN CANCER EXCISION Left 10/10/2012 Procedure: EXCISION - SKIN CANCER; Surgeon: Sy Fierro MD; Location: [facility] MAIN OR; Service: Plastics; Laterality: Left; upper arm and upper back w/frozen section UPPER GASTROINTESTINAL ENDOSCOPY UPPER GASTROINTESTINAL ENDOSCOPY 03/03/2013 Procedure: ESOPHAGOGASTRODUODENOSCOPY; Surgeon: Howie Gibson MD; Location: [facility] ENDOSCOPY; Se rvice: Gastroenterology; Laterality: [...] 9.3 (H) 05/17/2019 No components found for: [id number], PTHINT No results found for: [id number] Lab Results Component Value Date TSH 2.780 [...] Pack NP at 020 10:10 PM Myriam Mcconnell Geological Science Teacher - 06/04/2019 4:00 PM PDTVirtual/Telepho louisa consent: Yes. Med changes since last visit/Pharmacy: no med changes, using RX pharmacy in [place]. MyChart Active: Pending. Vital signs: does not [...] syncope, speech difficulty, weakness, numbness and headaches. ONDAdocum ented in this encounter Plan of Treatment +--------+---------+ + + + | Date | Type | Specialty | Care Team | Description | +--------+---------+ + + + | 09/10/ | Office | Geriatric Medicine | Mireya Pack, | | 2019 | Visit | | DRIVER[facility]GUIDE [address] | | | | | | [address] [place], | | | | | | [place] [address] | | | | | | [phone] | | | | | | | | +--------+---------+ + + + | 09/29/ | Office | Urology | Mireya Pack, | | | 2019 | Visit | | DRIVER[facility]GUIDE [address] | | | | | | [address] [place], | | | | | | [place] [address] | | | | | | [phone] | | | | | | | | | | | | Toy Wild, DO | | | | | | [address] | | | | | | [place] [address] | | | | | | [phone] | | | | | | | [...]
--- OUTSIDE RECORDS SUMMARY | ~2019-09-09 | XMS | Encounter Summary ---
Demographics + + + | Address | [address] | | | [place] [address] | + + + | Home Phone [...] + | Sammi Kohler | ECON | [place] [address] | | + + + + + Care Team Providers + +------+ + | Care Main Galley Scullion Name | Role | Phone | + +------+ + PCP | Unavailable | + +------+ + Encounter Details +--------+ + + + + | Date | Type | Department | Care Team | Description | +--------+ + + + + | 05/08/ | Emergency | [facility] | Yesica Flowers, | TIA (transient | | 2015 - | | MEDICAL CENTER | DO [address] | ischemic attack); | | | | EMERGENCY CENTER | [place] [address] | CKD (chronic kidney | | 05/09/ | | [address] | [phone] | disease); Paroxysmal | | 2014 | | [place], [place] | | atrial fibrillation | | | | [address] | | (HCC) | | | | [phone] | | | +--------+ + + + [...] 05/08/142325 Date of Service: 05/08/142324 Status: Signed Line Rider: Marcial Bernal RN (Registered Nurse) Report given to EVE Bustamante at [facility]. Marcial Bernal RN 05/08/14 2326 hitaYesica lai DO - 05/08/2014 9:28 PM PDTFormatting of this note might be different from the o riginal. ED Provider Notes by Yesica Flowers DO at 05/08/142127 Author: Yesica Flowers DO Service: Emergency Department Author Type: Physician Filed: 05/09/14 1711 Date of Service: 05/08/142127 Status: Signed Line Rider: Yesica Flowers DO (Physician) Procedures Additional Documentation Procedures [facility] Department of Emergency Medicine HPI History of Present Illness Patient Identification Norah Gr is a 58 y.o. male. Patient information was obtained from patient. History/Exam limitations: none. Patient presented to the Emergency Department by: [facility] 4477 Chief Complaint Chief Complaint Patient presents with [...] lungs as needed. 108 mcg/act Historical Provider Lyfcs-D-Gtehgooecexzh (BEANO) TABS Take 150 Units by mouth [...] 100 mg by mouth nightly. Historical Provider bmvieqdmm-dafxxyan-fljyhweop hydroxide-simethicone Take 40 mLs by mouth daily [...] He states he does not have a bladder trimmer a nd does not know if he has had more than 1 episode of atrial fibrillation. His CHADS2 score is 2. I did discuss possible Coumadin therapy with Dr. Gregory, neurologist, who recommended c ontinuing him on aspirin and then follow up with Dr. Rhodes outpatient neurologist and also w [facility] cardiology. I did discuss starting the patient [...] Component Value Ref Range Date/Time Cardiac Panel [[id number]] (Abnormal) Collected: 04/02/15 2150 Order Status: Completed Updated: 05/08/142218 WBC 10.81 [...] ng/mL CK-MB Index 1.8 POC cardiac troponin [[id number]] Collected: 05/08/142152 Order Status: Completed Updated: 05/08/142207 POC CARDIAC TROPONIN 0.01 0.00 - 0.10 ng/mL Radiology and EKG Evaluation Imaging Results CT Head Non-Contrast (Final result) Result time: 05/08/14 22:10:00 Final result by Rad Results In Richard (05/08/14 22:10:00) Impression: 1. No acute intracranial hemorrhage is demonstrated. 2. Mild diffuse global parenchymal volume loss. Narrative: NORAH Andrea SIMÓN [address] HEAD WO CONTRAST 05/08/2014 10:03 PM INDICATION: Left facial, neck and arm numbness that has resolved, TIA COMPARISON: Head CT, 05/06/14, MRI, 05/06/14 TECHNIQUE: CT scan of the head without contrast. 5-mm axial noncontrast images were acquir ed from the foramen magnum through the cranial vertex. FINDINGS: On professor of engineering imaging, there is normal craniocervical alignment with [...] 05/08/141949 Date of Service: 05/08/141949 Status: Signed Line Rider: Naren Ann RN (Registered Nurse) Bed: 11 Expected date: Expected time: Means of arrival: Comments: docume nted in this encounter Plan of Treatment +--------+---------+ + + + | Date | Type | Specialty | Care Team | Description | +--------+---------+ + + + | 09/10/ | Office | Geriatric Medicine | Mireya Pack, | | | 2019 | Visit | | BATH STEWARD [address] | | | | | | [address] [place], | | | | | | [place] [address] | | | | | | [phone] | | | | | | | | +--------+---------+ + + + | 09/29/ | Office | Urology | Mireya Pack, | | | 2019 | Visit | | BATH STEWARD [address] | | | | | | [address] [place], | | | | | | [place] [address] | | | | | | [phone] | | | | | | | | | | | | Toy Wild, DO | | | | | | [address] | | | | | | [place] [address] | | | | | | [phone] | | | | | | | [...] | | | cranial vertex. FINDINGS: On professor of engineering imaging, there is normal | | | [...] Joaquin Ramos - 09/20/2018 10:29 PM SHALONDA GR89 years MaleCT | | HEAD WO CONTRAST05/08/2014 10:03 PM INDICATION: Left facial, neck and arm numbness that | | has resolved, TIA COMPARISON: Head CT, 05/06/14, MRI, 05/06/14 TECHNIQUE: CT scan of the | | head without contrast. 5-mm axial noncontrast images were acquired from the foramen | | magnum through the cranial vertex. FINDINGS: On professor of engineering imaging, there is normal | | craniocervical [...] [facility];[address] | K/uL | LAB | | | | [address];[place] | | | | | | [address] | | | | + + + + + -+ | Non- | 4.99Comment: Testing | 4.20 - 5.70 | EXTERNAL | | | Red Blood | performed at [facility];888 | M/uL | LAB | | | Cells | [address];[place] | | | | | Counted | [address] | | | | + + + + + -+ | Hemoglobin | 12.4 (L)Comment: Testing | 13.2 - 17.0 | EXTERNAL | | | | performed at [facility];888 | g/dL | LAB | | | | [address];[place] | | | | | | [address] | | | | + + + + + -+ | Hematocrit, | 38.3 (L)Comment: Testing | 39.0 - 50.0 % | EXTERNAL | | | POC | performed at [facility];[address] | | LAB | | | | [address];[place] | | | | | | [address] | | | | + + + + + -+ | MCV | 76.8 (L)Comment: Testing | 80.0 - 100.0 fl | EXTERNAL | | | | performed at [facility];[address] | | LAB | | | | [address];[place] | | | | | | [address] | | | | + + + + + -+ | MCH | 24.9 (L)Comment: Testing | 27.0 - 34.0 pg | EXTERNAL | | | | performed at [facility];[address] | | LAB | | | | [address];[place] | | | | | | [address] | | | | + + + + + -+ | MCHC | 32.5Comment: Testing | 32.0 - 35.5 | EXTERNAL | | | | performed at [facility];888 | g/dL | LAB | | | | [address];[place] | | | | | | [address] | | | | + + + + + -+ | RDW-CV | 42.4Comment: Testing | 37 - 53 fl | EXTERNAL | | | | performed at [facility];[address] | | LAB | | | | [address];[place] | | | | | | [address] | | | | + + + + + -+ | Platelet | 266Comment: Testing | 150 - 400 K/uL | EXTERNAL | | | Count | performed at [facility];888 | | LAB | | | Plasma | [address];[place] | | | | | | [address] | | | | + + + + + -+ | MPV | 7.4Comment: Testing | fl | EXTERNAL | | | | performed at [facility];[address] | | LAB | | | | [address];[place] | | | | | | [address] | | | | + + + + + -+ | Differentia | AUTOMATEDComment: | | EXTERNAL | | | l Type | Testing performed at | | LAB | | | | [facility];[address] | | | [address];[place] [address] | | | | + + + + + -+ | % Segmented | 61.03Comment: Testing | % | EXTERNAL | | | | performed at [facility];[address] | | LAB | | | Neutrophils | [address];[place] | | | | | | [address] | | | | + + + + + -+ | % | 24.87Comment: Testing | % | EXTERNAL | | | Lymphocytes | performed at [facility];[address] | | LAB | | | | [address];[place] | | | | | | [address] | | | | + + + + + -+ | % Monocytes | 9.14Comment: Testing | % | EXTERNAL | | | | performed at [facility];[address] | | LAB | | | | [address];[place] | | | | | | [address] | | | | + + + + + -+ | % | 4.08Comment: Testing | % | EXTERNAL | | | Eosinophils | performed at [facility];[address] | | LAB | | | | [address];[place] | | | | | | [address] | | | | + + + + + -+ | % Basophils | 0.88Comment: Testing | % | EXTERNAL | | | | performed at [facility];[address] | | LAB | | | | [address];[place] | | | | | | [address] | | | | + + + + + -+ | Absolute | 6.60Comment: Testing | 1.90 - 7.40 | EXTERNAL | | | Segmented | performed at [facility];[address] | K/uL | LAB | | | Neutrophils | [address];[place] | | | | | | [address] | | | | + + + + + -+ | Absolute | 2.69Comment: Testing | 1.00 - 3.90 | EXTERNAL | | | Lymphocytes | performed at [facility];[address] | K/uL | LAB | | | | [address];[place] | | | | | | [address] | | | | + + + + + -+ | Absolute | 0.99 (H)Comment: Testing | 0.00 - 0.80 | EXTERNAL | | | Monocytes | performed at [facility];[address] | K/uL | LAB | | | | [address];[place] | | | | | | [address] | | | | + + + + + -+ | Absolute | 0.44Comment: Testing | 0.00 - 0.50 | EXTERNAL | | | Eosinophils | performed at [facility];[address] | K/uL | LAB | | | | [address];[place] | | | | | | [address] | | | | + + + + + -+ | Absolute | 0.10Comment: Testing | 0.00 - 0.10 | EXTERNAL | | | Basophils | performed at [facility];[address] | K/uL | LAB | | | | [address];[place] | | | | | | [address] | | | | + + + [...] [place] | | | | | | [address] | | | | + + + + + -+ | Cl | 106Comment: Testing | 99 - 109 mmol/L | EXTERNAL | | | | performed at [facility];[address] | | LAB | | | | [address];[place] | | | | | | [address] | | | | + + + + + -+ | CO2 | 27Comment: Testing | 23 - 32 mmol/L | EXTERNAL | | | | performed at [facility];[address] | | LAB | | | | [address];[place] | | | | | | [address] | | | | + + + + + -+ | Anion Gap | 11Comment: Testing | 5 - 20 mmol/L | EXTERNAL | | | | performed at [facility];[address] | | LAB | | | | [address];[place] | | | | | | [address] | | | | + + + + + -+ | Glucose, | 165 (H)Comment: Testing | 65 - 99 mg/dL | EXTERNAL | | | Fasting | performed at [facility];[address] | | LAB | | | | [address];[place] | | | | | | [address] | | | | + + + + + -+ | BUN | 20Comment: Testing | 8 - 25 mg/dL | EXTERNAL | | | | performed at [facility];[address] | | LAB | | | | [address];[place] | | | | | | [address] | | | | + + + + + -+ | Creatinine | 1.24Comment: Testing | 0.70 - 1.30 | EXTERNAL | | | | performed at [facility];888 | mg/dL | LAB | | | | [address];[place] | | | | | | [address] | | | | + + + + + -+ | BUN/Creatin | 16Comment: Testing | | EXTERNAL | | | ine Ratio | performed at [facility];[address] | | LAB | | | | [address];[place] | | | | | | [address] | | | | + + + + + -+ | Calcium | 8.6Comment: Testing | 8.5 - 10.5 | EXTERNAL | | | | performed at [facility];888 | mg/dL | LAB | | | | [address];[place] | | | | | | [address] | | | | + + + + + -+ | Protein, | 7.5Comment: Testing | 6.3 - 8.2 g/dL | EXTERNAL | | | Total | performed at [facility];[address] | | LAB | | | | [address];[place] | | | | | | [address] | | | | + + + + + -+ | Albumin | 3.5 (L)Comment: Testing | 3.6 - 5.0 g/dL | EXTERNAL | | | | performed at [facility];[address] | | LAB | | | | [address];[place] | | | | | | [address] | | | | + + + + + -+ | Globulin | 4.1Comment: Testing | 1.3 - 4.9 g/dL | EXTERNAL | | | | performed at [facility];888 | | LAB | | | | [address];[place] | | | | | | [address] | | | | + + + + + -+ | A/G Ratio | 0.8 (L)Comment: Testing | 1.0 - 2.4 | EXTERNAL | | | | performed at [facility];[address] | | LAB | | | | [address];[place] | | | | | | [address] | | | | + + + + + -+ | Bilirubin | 0.3Comment: Testing | 0.1 - 1.5 mg/dL | EXTERNAL | | | Total | performed at [facility];[address] | | LAB | | | | [address];[place] | | | | | | [address] | | | | + + + + + -+ | ALP, | 98Comment: Testing | 35 - 115 U/L | EXTERNAL | | | External | performed at [facility];[address] | | LAB | | | | [address];[place] | | | | | | [address] | | | | + + + + + -+ | AST | 17Comment: Testing | 10 - 45 U/L | EXTERNAL | | | | performed at [facility];[address] | | LAB | | | | [address];[place] | | | | | | [address] | | | | + + + + + -+ | ALT | 19Comment: Testing | 10 - 65 U/L | EXTERNAL | | | | performed at [facility];[address] | | LAB | | | | [address];[place] | | | | | | [address] | | | | + + + [...] | | | | | [address];[place] [address] | | | | + + + + + -+ | CK, Total | 158Comment: Testing | 55 - 400 U/L | EXTERNAL | | | | performed at [facility];[address] | | LAB | | | | [address];[place] | | | | | | [address] | | | | + + + [...] [place] | | | | | | [address] | | | | + + + + + -+ | aPTT, | 25Comment: Testing | 23 - 32 seconds | EXTERNAL | | | Patient | performed at [facility];[address] | | LAB | | | | [address];[place] | | | | | | [address] | | | | + + + + + -+ | CK-MB | 2.8Comment: Testing | 0.5 - 3.6 ng/mL | EXTERNAL | | | | performed at [facility];[address] | | LAB | | | | [address];[place], [place] | | | | | | [address] [...] (500), | | | | | | restaurant expeditor Keyla Gregory | | | | | | (25) on 05/09/2014 | | | | | | 12:18:45 AM | | | | + + + + + + + + | Specimen | + + | | + + + + + | Narrative | Performed At | + + + | Historically converted procedure from [facility] environment | EXTERNAL LAB | + + [...]
--- OUTSIDE RECORDS SUMMARY | ~2019-09-09 | XMS | Encounter Summary ---
Demographics + + + | Address | [address] | | | [place] [address] | + + + | Home Phone [...] Sammi Kohler | ECON | [place] [address] | | + + + + + Care Team Providers + +------+ + | Care Upper Stitcher Name | Role | Phone | + +------+ + | Mik Gutiérrez DO | PCP | | + +------+ + Encounter Details +--------+ + + + + | Date | Type | Department | Care Team | Description | +--------+ + + + + | 05/20/ | Orders Only | [facility] | Conversion | | | 2015 | | CENTER | Transaction, | | | | | ANTICOAGULATION | Provider Unknown | | | | | [facility] [place] | [phone] | | | | | [address] | (Fax) | | | | | [place], [place] | | | | | | [address] | | | | | | [phone] | | | +--------+ + + + [...] 05/20/14 1529 Encounter Date: 05/20/2014 Status: Signed Manager Medical Device: CITLALY Leonard (Advanced Registered Nurse Practitioner) ANTICOAGULATION HISTORY & PHYSICAL Name: Kevyn Guzman Date of : 1955 Provider: Date of Service: 05/20/2014 Discharge Date: ANTICOAGULATION NOTE INITIAL CONSULT REFERRING PROVIDER: Jerrell Gutiérrez Do [address] [place] [address] PRIMARY CARE PHYSICIAN: JERRELL GUTIÉRREZ INDICATION FOR ANTICOAGULATION: ICD-9-CM 1. Atrial [...] is indefinite. He is a resident at [facility]. PAST MEDICAL HISTORY: Past Medical History [...] - INCISIONAL; Surgeon: Jevon Vargas DO; Location: [facility] MAIN OR; Service: General; Laterality: N/A; Skin lesion excision Left 05/05/2014 Procedure: EXCISION - LESION - FROZEN SECTION; Surgeon: Sy Fierro MD; Location: [facility] MAIN OR; Service: Plastics; Laterality: Left; forearm CURRENT MEDICATIONS: Current Outpatient Prescriptions Medication Sig Dispense Refill Albuterol Sulfate (VENTOLIN HFA IN) Inhale 2 puffs into the lungs as needed. 108 mcg/ac t Slgad-A-Hhwhaysybrrbr (BEANO) TABS Take 150 Units by mouth [...] tablet Take 100 mg by mouth nightly. 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
--- OUTSIDE RECORDS SUMMARY | ~2019-09-09 | XMS | Encounter Summary ---
Demographics + + + | Address | [address] | | | [place] [address] | + + + | Home Phone [...] + | Sammi Kohler | ECON | [place] [address] | | + + + + + Care Team Providers + +------+ + | Care [employer] Law Clerk Name | Role | Phone | [...] | | | | | competency | [address] | | | | | | evaluation | Phone: | | | | | | | [phone] | | | | | | | Fax: | | | | | | | [phone] | | +--------+ + + + + + Reason for Visit + + + | Reason | Comments | + + + | Paperwork | Social Security, patient states he would like ss to stop paying | | | the tobacco weigher because he no longer needed and he [...] | Visit | [facility] | CENTER CONSULTANT [address] | impairment) (Primary | | | [address] | [address] [place], | Dx); Encounter for | | | | [place] | [place] [address] | competency | | | | [address] | [phone] | evaluation | | | | [phone] | | | +--------+---------+ + + + [...] 03/12/2019 9:15 AM PSTIt is a pleasure seesridhar mills in clinic today. I look forward in providing the best quality care in meeting your [facility] lthcare needs! Applicable to new patients- Do [...] states t hat he has been using tobacco weigher to manage his bills (rent and utility) for last 2 years, wh ile he pays his own bill. Prior to the tobacco weigher being the labor service representative payee, his funds was being managed by family, ex [id number]. He is requesting to be his own [...] social history Patient Care Team: Mireya Pack [facility] as PCP - General (Nurse Practitioner - [...] Anxiety ARF (acute renal failure) ([facility]) 03/02/2013 Atrial fibrillation (HCC) Basal cell carcinoma 09/26/2012 arm and back COPD (chronic obstructive pulmonary disease) ([facility]) 03/02/2013 hypoxemia on 2 lts nc Depression Development delay Diabetes mellitus type II DVT (deep venous thrombosis) ([facility]) 03/29/2018 Facial droop 07/08/2013 GIB (gastrointestinal bleeding) 03/02/[address] Nur, rectal ulcers, nodule of GE junction Hypercholesterolemia 07/08/2013 Hyperlipidemia 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 Obesity, Class I, BMI 30-34.9 07/08/2013 WARD (obstructive sleep apnea) 08/11/2012 does not use CPAP because of the noise Other chronic pain Renal failure Stroke (HCC) TIA (transient ischemic attack) Unspecified visual disturbance reading glasses Past Surgical History: Procedure Laterality Date ABDOMEN SURGERY CHOLECYSTECTOMY CHOLECYSTECTOMY, LAPAROSCOPIC 09/12/2012 Procedure: LAPAROSCOPIC - CHOLECYSTECTOMY; Surgeon: Jevon Vargas DO; Location[facility]; Service: General; Laterality: N/A; COLONOSCOPY COLONOSCOPY 03/04/2013 Procedure: COLONOSCOPY; Surgeon: Howie Gibson MD; Location: [facility]; Service: Gastroen terology; Laterality: N/A; HERNIA REPAIR 07/03/2013 Procedure: LAPAROSCOPIC - HERNIA - INCISIONAL; Surgeon: Jevon Vargas DO; Location: [facility] MAIN OR; Service: General; Laterality: N/A; KNEE SURGERY rt knee, patella LEG SURGERY LLE OTHER SURGICAL HISTORY UNLISTED PROCEDURE ARTHROSCOPY OTHER SURGICAL HISTORY Left 05/05/2014 SKIN LESION EXCISION - Procedure: EXCISION - LESION - FROZEN SECTION; Surgeon: Sy murcia MD; Location: [facility]; Service: Plastics; Laterality: Left; forearm SKIN BIOPSY SKIN CANCER EXCISION Left 10/10/2012 Procedure: EXCISION - SKIN CANCER; Surgeon: Sy Fierro MD; Location: [facility]; Service: Plastics; Laterality: Left; upper arm and upper back w/frozen section UPPER GASTROINTESTINAL ENDOSCOPY UPPER GASTROINTESTINAL ENDOSCOPY 03/03/2013 Procedure: ESOPHAGOGASTRODUODENOSCOPY; Surgeon: Howie Gibson MD; Location: [facility]; Se rvice: Gastroenterology; Laterality: N/A; Social [...] file Gets together: Not on file Attends latter day service: Not on file Active member of [...] worried about not having a ride to [place], as we o nly have a provider in [place]. Disccuss with the pt we will see [...] management. This document has been created using [employer] Voice Recognition software. The entry h as [...] | | 2019 | Visit | | CUSHION FORMER [address] | | | | | | [address] [place] | | | | | | [place] [address] | | | | | | [phone] | | | | | | | | +--------+---------+ + + + | 09/29/ | Office | Urology | Mireya Pack, | | | 2019 | Visit | | CUSHION FORMER [address] | | | | | | [address] [place] | | | | | | [place] [address] | | | | | | [phone] | | | | | | | | | | | | Toy Wild, DO | | | | | | [address] | | | | | | [place] [address] | | | | | | [phone] | | | | | | | [...]
[~2019-09-09 22:28] MED LIST: ABILIFY5 MG PO; ATORVASTATIN CA40 MG PO; COREG6.25 MG PO; ELIQUIS5 MG PO; FLOMAX0.4 MG PO; GLUCOPHAGE500 MG PO; HUMALOG100 UNIT/2 SUB-Q; HYDRALAZINE HCL25 MG PO; LEVEMIR FL100 UNIT/2 SUB-Q; OMEPRAZOLE20 MG PO; PROCARDIA XL60 MG PO; VANCOCIN HCL125 MG PO; ZESTRIL40 MG PO
--- OUTSIDE RECORDS SUMMARY | 2019-09-09 22:30 | XMS ---
PreManage Notification: NORAH GR Security Property Developer Events No recent Security Events currently on file CRITERIA MET - 6 ED Visits in 6 Months - [facility] - Has Care Guidelines - [facility] - 2 Visits in 30 Days CARE PROVIDERS Name Unknown [facility] Facility Current PHONE: [phone] HOLLY GALLAGHER Nurse Practitioner: Gerontology Current PHONE: Unknown Guidelines Source: [facility] [...] PCPs or refer the patient to the watch caser in the ER to help coordinate services. 4. If the patient presents with any type of substance abuse issues please have the ER refer the patient to substance resources. Contact the watch caser in the ER to help with placement. 5. If the patient presents with mental health issues please refer the patient to mental health. Have the patient speak to the watch caser in the ER to coordinate services. \T\nbsp; 6. Pain/Opioid Agreement: Please use the [facility] Prescription Monitoring Program for specifics related to pt\T\rsquo;s use of narcotics medications.\T\nbsp; https://secureaccess.[place].gov 7.Additional Information: Please contact your facility\T\rsquo;s Case Management department if further intervention is needed in the care of this patient. E.D. VISIT COUNT (12 MO.) 1 [facility] 24 [facility] 2 [facility] [place] TOTAL 31 NOTE: Visits indicate total known visits. 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 - Urinary Frequency - Other chest pain - Frequency of micturition 08/06/2019 03:[facility] DIAGNOSES: - Other insomnia - Chest Pain - Essential (primary) hypertension - Hyperglycemia, unspecified - Unspecified atrial fibrillation 07/23/2019 15:46 [facility] TYPE: Emergency DIAGNOSES: - Heart Palpitations 07/20/2019 10:10 [facility] TYPE: Emergency COMPLAINT: - MULTIPLE COMPLAINTS 07/15/2019 12:14 [facility] TYPE: Emergency DIAGNOSES: - Diarrhea (Adult) - Noninfective gastroenteritis and colitis, unspecified - Type 2 diabetes mellitus with hyperglycemia - Failure to Thrive - Essential (primary) hypertension 07/06/2019 05:29 [facility] [place] [facility] TYPE: Emergency DIAGNOSES: - Patient's other noncompliance with medication regimen - Hypertension - Urinary Complaint - Unspecified fall, initial encounter - Essential (primary) hypertension 07/03/2019 10:06 [facility] [place] [facility] TYPE: Emergency DIAGNOSES: - Fever, unspecified - Chest Pain - Shortness of Breath - Fever (9 Weeks To 74 Years) - Sepsis, unspecified organism - Unspecified atrial fibrillation 05/15/2019 20:19 [facility] TYPE: Emergency DIAGNOSES: - Leg Deformity - Other abnormalities of gait and mobility - Contusion of right knee, initial encounter - 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 - Fall - Unspecified fall, initial encounter 05/13/2019 11:15 [facility] TYPE: Emergency DIAGNOSES: - High Blood Sugar (Symptomatic) - 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 - Type 2 diabetes mellitus with hyperglycemia 04/13/2019 20:40 [facility] TYPE: Emergency DIAGNOSES: - Other chest pain - Chest Pain - Type 2 diabetes mellitus with hyperglycemia - 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 04/13/2019 08:[facility] DIAGNOSES: - Hyperglycemia, unspecified - High Blood Sugar (Symptomatic) 04/04/2019 04:12 [facility] [place] [facility]: Emergency DIAGNOSES: - Chest pain, unspecified - Chest Pain 03/21/2019 17:09 [facility] [place] [facility] TYPE: Emergency DIAGNOSES: - Hemoptysis - Dizziness - Type 2 diabetes mellitus with hyperglycemia - jail (current) use of 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 - Coughing Up Blood 02/01/2019 15:26 [facility] TYPE: Emergency COMPLAINT: - ELEVATED BLOOD SUGAR 02/01/2019 04:32 [facility] TYPE: Emergency COMPLAINT: - DIZZY 01/25/2019 06:53 [facility] CHIP TYPE: Emergency DIAGNOSES: - Headache - Hypertension - Headache (Adult - New Onset Or New Symptoms) - Dizziness 01/10/2019 05:18 [facility] CHIP TYPE: Emergency DIAGNOSES: - Diarrhea (Adult) - Headache (Adult - Recurrent Or Known Dx Migraines) - Hyperglycemia, unspecified - Dizziness and giddiness - Dizziness 01/09/2019 02:10 [facility] [place] [facility] TYPE: Emergency COMPLAINT: - dizziness 01/03/2019 20:02 [facility] TYPE: Emergency DIAGNOSES: - Hyperglycemia, unspecified - Dizziness and giddiness - Unspecified injury of head, initial encounter - Dizziness - Unspecified fall, initial encounter Plus 11 More Visits INPATIENT VISIT TRACKING (12 MO.) 07/23/2019 15:46 [facility] TYPE: General Medicine DIAGNOSES: - Weakness - Pneumonitis due to inhalation of food and vomit - Paroxysmal atrial fibrillation - Heart Palpitations 07/20/2019 12:50 [facility] [place] TYPE: Critical Care COMPLAINT: - A-FIB RVR DIAGNOSES: - Personal history of pulmonary embolism - Type 2 diabetes mellitus with hyperglycemia - Other jail (current) drug therapy - Essential (primary) hypertension - Gastro-esophageal reflux disease without esophagitis - Dehydration - Allergy status to other drugs, medicaments and biological sub - 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 - Obstructive sleep apnea (adult) (pediatric) - Major depressive disorder, single episode, unspecified - Enterocolitis due to Clostridium difficile, not specified as - Benign prostatic hyperplasia without lower urinary tract symp - Patient's noncompliance with other medical treatment and pop - Hyperlipidemia, unspecified - Unspecified lack of expected normal physiological development - Contact with and (suspected) exposure to other viral communic - Personal history of transient ischemic attack (TIA), and cere - Permanent atrial fibrillation - jail (current) use of 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 07/03/2019 10:06 [facility] TYPE: Internal Medicine DIAGNOSES: - Chronic obstructive pulmonary disease, unspecified - Unspecified atrial fibrillation - Unspecified lack of expected normal physiological development - Sepsis, unspecified organism - Bacteremia - Fever, unspecified - Type 2 diabetes mellitus with hyperglycemia 10/11/2018 18:01 [facility] TYPE: Internal Medicine DIAGNOSES: - 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
--- NOTE | 2019-09-10 06:50 | EKG ---
[facility] [address] [place] [address] Signed Atrial fibrillation with rapid ventricular response Minimal voltage criteria for LVH, may be normal variant ST \T\ T wave abnormality, consider inferolateral ischemia Abnormal ECG When compared with ECG of 20-JUL-2019 10:14, No significant change was found Confirmed by HANNAH ROSALES MD ([id number]) on 09/10/2019 6:50:33 AM Electronically Signed By: HANNAH RSOALES MD 09/10/19 0650 PATIENT NAME: NORAH GR Electrocardiogram DATE OF : 53 PHYSICIAN: HANNAH ROSALES MD REPORT #: [id number] REPORT IS CONFIDENTIAL AND NOT TO BE RELEASED WITHOUT AUTHORIZATION
== END 2019-09-10 07:27 | disposition home or self-care (01) ==
LOC: ED 22:28
DX: I48.91 Unspecified atrial fibrillation (principal); E11.9 Type 2 diabetes mellitus without complications; I11.0 Hypertensive heart disease with heart failure; I50.9 Heart failure, unspecified; Z88.8 Allergy status to other drugs, medicaments and biological substances; Z79.899 Other long term (current) drug therapy; Z79.01 Long term (current) use of 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; Z79.4 Long term (current) use of insulin
CPT/HCPCS: 71045; 80053; 82010; 83880; 84484; 85025; 93005; 93010; 96374; 96376; 99285-25; J1815

== ENCOUNTER 2019-10-12 17:29 | Emergency (ER) | payer MEDICARE ==
[~2019-10-12] VITALS: Ht 180.3 cm; Wt 96.2 kg
--- OUTSIDE RECORDS SUMMARY | ~2019-10-12 | XMS | Encounter Summary ---
Demographics + + + | Address | [address] | | | [place] [address] | + + + | Home Phone | | + + + | Preferred Language | Unknown | + + + | Marital Status | | + + + | Quaker Affiliation | 1027 | + + + | Race | White | + + + | Ethnic Group | Not or | + + + Author + + + | Author | [facility] | | | and [place] | + + + | Organization | [facility] | | | and [place] | + + + | Address | Unknown | + + + | Phone | Unavailable | + + + Support + + + + + | Name | Relationship | Address | Phone | + + + + + | Sammi Kohler | ECON | [place] [address] | | + + + + + Care Team Providers + +------+ + | Care International Freight Forwarder Name | Role | Phone | + +------+ + | Mireya Pack NP | PCP | | + +------+ + Reason for Visit + + + | Reason | Comments | + + + | Medication Refill | | + + + Encounter Details +--------+--------+ + + + | Date | Type | Department | Care Team | Description | +--------+--------+ + + + | 06/25/ | Refill | [facility] [place] | Mireya Pack, | Medication Refill | | 2019 | | [facility] [address] | CUTTER HEAD SHARPENER [address] | | | | | [address] | [address] [facility], | | | | | [facility] [place] | [place] [address] | | | | | [address] | [phone] | | | | | [phone] | | | +--------+--------+ + + + Social History + +-------+ [...] + + documented as of this encounter Functional Status + + + + | Functional Status | Response | Date of Assessment | + + + + | Are you deaf or do you have serious | No | 04/13/2019 | | difficulty hearing? | | | + + + + | Are you blind or do you have serious | No | 04/13/2019 | | difficulty seeing, even when wearing | | | | glasses? | | | + + + + | Do you have serious difficulty walking or | No | 04/13/2019 | | climbing stairs? (5 years old or older) | | | + + + + | Do you have difficulty dressing or bathing? | No | 04/13/2019 | | (5 years old or older) | | | + + + + | Because of a physical, mental, or emotional | No | 04/13/2019 | | condition, do you have difficulty [...] of a physical, mental, or emotional | No | 04/13/2019 | | condition, do you have serious difficulty | | | | concentrating, remembering, or making | | | | decisions? (5 years old or older) | | | + + + + documented as of this encounter Miscellaneous Notes Telephone Encounter - Mel Morton, Eyeglass Frame Truer - 06/27/2019 7:59 AM PDTPharmac y requesting refill. Last appointment was 06/04/2019. Next appointment not scheduled.Electro nically signed by Mel Morton Eyeglass Frame Truer at 06/27/2019 8:00 AM PDTdocumented camilla sanchez this encounter Plan of Treatment +--------+ + + + + | Date | Type | Specialty | Care Team | Description | +--------+ + + + + | 10/16/ | Anti-coag | Anticoagulation | Brittany Zaragoza | | | 2019 | visit | | [address] | | | | | | [place], | | | | | | [place] [address] | | | | | | [phone] | | | | | | | | +--------+ + + + + documented as of this encounter Visit Diagnoses Not on filedocumented in this encounter"
--- OUTSIDE RECORDS SUMMARY | ~2019-10-12 | XMS | Encounter Summary ---
Demographics + + + | Address | [address] | | | [place] [address] | + + + | Home Phone | | + + + | Preferred Language | Unknown | + + + | Marital Status | | + + + | Presybeterian Affiliation | 1027 | + + + | Race | White | + + + | Ethnic Group | Not or | + + + Author + + + | Author | [facility] | | | and [place] | + + + | Organization | [facility] | | | and [place] | + + + | Address | Unknown | + + + | Phone | Unavailable | + + + Support + + + + + | Name | Relationship | Address | Phone | + + + + + | Sammi Kohler | ECON | [place] [address] | | + + + + + Care Team Providers + +------+ + | Care Sas Statistical Programmer Name | Role | Phone | + +------+ + | Mireya Pack NP | PCP | | + +------+ + Reason for Visit + +--------+ + | Reason | Onset | Comments | | | Date | | + +--------+ + | Cellulitis | 09/16/ | | | | 2020 | | + +--------+ + Encounter Details +--------+ + + + + | Date | Type | Department | Care Team | Description | +--------+ + + + + | 09/16/ | Telephone | [facility] | Mireya Pack, | Cellulitis | | 2020 | | [facility] [address] | BARK PRESS OPERATOR [address] | | | | | [address] | [address] [place], | | | | | [place], [place] | [place] [address] | | | | | [address] | [phone] | | | | | [phone] | | | +--------+ + + + + Social [...] this encounter Miscellaneous Notes Telephone Encounter - Mireya Pack NP - 09/18/2019 11:05 AM PDTOn schedule elephone Encounter - Lucia Amos RN - 09/17/2019 2:35 PM PDTDestiny called back, right lower leg possib le cellulitis. Warm to touch, swollen and redness noted. Patient does not know for sure how long it has been there. Patient has an apt tomorrow with PCP at 1:30pm. HH has called APS and REGULATORY INTERN with patient but he is non compliant. HH will discharge him next week due to this. Patient only said, "I will miss you." HH said that when she got to patient's house, she noted poop in his pants showing through t he buttock part of the pants and she told him of this and asked him if he has some change of clothes and patient said, "yeah, a little" HH said that yes you do have a change of clothes , not a little. Patient had a gallon size of orange juice beside him and he was eating chips. Also had pudd ing and zimbabwean fries with cheese. When she left, patient still did not change his pants and walked outside barefoot. Routed to PCP as FYI. elephone Encounte r - Lucia Amos RN - 09/17/2019 2:04 PM PDTCall placed to [facility] staff, no answer, le ft VM with clinic phone number. elephone Encounter - LeePatti crouch - 09/17/2019 11:59 AM PDTDestiny , is bill ng regarding Cellulitis and would like a call back. Additional Call Details: States patient may have cellulitis on right leg and is seeking ad vice. Please call her back at [phone]. If this is a symptom based call, was patient offered triage? Not Applicable If this is a symptom based call and you were unable to immediately transfer the call to a ashley pascual re recording mixer was caller made aware that if at any time he feels it is an emergency they latisha uld call 911 or go to the nearest emergency room? not applicable documented in this encounter Plan of Treatment +--------+ + + + + | Date | Type | Specialty | Care Team | Description | +--------+ + + + + | 10/16/ | Anti-coag | Anticoagulation | Brittany Zaragoza | | 2019 | visit | | [address] | | | | | | [facility] | | | | | | [place] [address] | | | | | | [phone] | | | | | | | | +--------+ + + + + documented as of this encounter Visit Diagnoses Not on filedocumented in this encounter
--- OUTSIDE RECORDS SUMMARY | ~2019-10-12 | XMS | Encounter Summary ---
Demographics + + + | Address | [address] | | | [place] [address] | + + + | Home Phone | | + + + | Preferred Language | Unknown | + + + | Marital Status | | + + + | Mosque Affiliation | 1027 | + + + | Race | White | + + + | Ethnic Group | Not or | + + + Author + + + | Author | [facility] | | | and [place] | + + + | Organization | [facility] | | | and [place] | + + + | Address | Unknown | + + + | Phone | Unavailable | + + + Support + + + + + | Name | Relationship | Address | Phone | + + + + + | Sammi Kohler | ECON | [place] [address] | | + + + + + Care Team Providers + +------+ + | Care Vamp Strap Ironer Name | Role | Phone | + +------+ + PCP | Unavailable | + +------+ + Encounter Details +--------+ + + + + | Date | Type | Department | Care Team | Description | +--------+ + + + + | 07/02/ | Hospital | [facility] | Conversion | | | 2013 | Encounter | [facility] | Transaction, | | | | | CLINIC [address] | Provider Unknown | | | | | [address] [place], [place] | [phone] | | | | | [address] | | | | | | [phone] | Jevon Vargas, | | | | | | DO [address] | | | | | | [address] [place], | | | | | | [place] [address] | | | | | | [phone] | | | | | | | | +--------+ + + + + Social History + +-------+ +--------+------+ | Tobacco Use | Types | Packs/Day | Years | Date | | | | | Used | | + +-------+ +--------+------+ | Never Assessed | | | | | + +-------+ +--------+------+ + + + | Sex Assigned at | Date Recorded | | | | + + + | Not on file | | + + + documented as of this encounter Medications at Time of Discharge + + + +---------+ + + | Medication | Sig | Dispensed | Refills | Start | End Date | | | | | | Date | | + + + +---------+ + + | lisinopril | Take 40 mg by mouth | | 0 | 03/05/19 | | | (PRINIVIL,ZESTRIL) | every evening. | | | 14 | 5 | | 40 MG tablet | | | | | | + + + +---------+ + + | pravastatin | Take 80 mg by mouth | | 0 | 08/12/19 | | | (PRAVACHOL) 80 MG | nightly. | | | 13 | 9 | | tablet | | | | | | + + + +---------+ + + documented as of this encounter Procedure Notes Conversion Transaction, Provider Unknown - 07/02/2013 6:04 PM PDTFormatting of this note m ight be different from the original. Pre-Procedure Instructions by Theodora Gaona RN at 07/02/131803 Author: Theodora Gaona RN Service: Anesthesiology Author Type: Registered Nurse Filed: 07/02/131804 Date of Service: 07/02/131803 Status: Signed Yarn Examiner Skeins: Theodora Gaona RN (Registered Nurse) Talked to Tarah at patients residence, will send MAR tomorrow, reviewed meds for patient to take and stop and shower with hibiclens. onver ivana Transaction, Provider Unknown - 07/02/2013 5:34 PM PDT Pre-Procedure Instructions by Theodora Gaona RN at 07/02/131733 Author: Theodora Gaona RN Service: Anesthesiology Author Type: Registered Nurse Filed: 07/02/131800 Date of Service: 07/02/131733 Status: Addendum Yarn Examiner Skeins: Theodora Gaona RN (Registered Nurse) Related Notes: Original Note by Theodora Gaona RN (Registered Nurse) filed at 07/02/13 173 7 Patient meets mets of 4 per AHA guidelines, denies chest pain or SOB when doing his own car e, dressing bathing, or walking, states he can get chest pain if he exerts himself. I walke d with patient in [place] to the [facility] and he has a very fast gait for just walking at a normal speed. Echo done 05/2013, WNL. Dr Arana consulted about this report . docume nted in this encounter Plan of Treatment +--------+ + + + + | Date | Type | Specialty | Care Team | Description | +--------+ + + + + | 10/16/ | Anti-coag | Anticoagulation | Brittany Zaragoza | | | 2019 | visit | | [address] | | | | | | [place], | | | | | | [place] [address] | | | | | | [phone] | | | | | | | | +--------+ + + + + documented as of this encounter Procedures + +--------+ + + + | Procedure Name | Priori | Date/Time | Associated Diagnosis | Comments | | | ty | | | | + +--------+ + + + | MRSA NAAT | Timed | 07/02/2013 | | Results for this | | | | 3:40 PM | | procedure are in the | | | | PDT | | results section. | + +--------+ + + + documented in this encounter Results MRSA NAAT (07/02/2013 3:40 PM PDT) + + | Specimen | + + | | + + + + + | Narrative | Performed At | + + + | [facility](NOSE) | EXTERNAL LAB | | Testing performed at [facility];[address] [place] [address];[place] [address] MRSA PCR | | | NEGATIVE Testing performed at | | | [facility];[address] [place] [address];[place] [address] | | + + + + +---------+ + + | Performing | Address | City/State/Zipcode | Phone Number | | Organization | | | | + +---------+ + + | EXTERNAL LAB | | | | + +---------+ + + documented in this encounter Visit Diagnoses Not on filedocumented in this encounter"
--- OUTSIDE RECORDS SUMMARY | ~2019-10-12 | XMS | Encounter Summary ---
Demographics + + + | Address | [address] | | | [place] [address] | + + + | Home Phone | | + + + | Preferred Language | Unknown | + + + | Marital Status | | + + + | Catholic Affiliation | 1027 | + + + | Race | White | + + + | Ethnic Group | Not or | + + + Author + + + | Author | [facility] | | | and [place] | + + + | Organization | [facility] | | | and [place] | + + + | Address | Unknown | + + + | Phone | Unavailable | + + + Support + + + + + | Name | Relationship | Address | Phone | + + + + + | Sammi Kohler | ECON | [place] [address] | | + + + + + Care Team Providers + +------+ + | Care Geospatial Extractor Analysis Name | Role | Phone | + +------+ + | Mik Gutiérrez DO | PCP | | + +------+ + Encounter Details +--------+ + + + + | Date | Type | Department | Care Team | Description | +--------+ + + + + | 05/20/ | Orders Only | [facility] | Conversion | | | 2014 | | CENTER | Transaction, | | | | | ANTICOAGULATION | Provider Unknown | | | | | [facility] | | | | | | [address] | (Fax) | | | | | [place], [place] | | | | | | [address] | | | | | | [phone] | | | +--------+ + + + [...] + + documented as of this encounter H&P Notes Jeni Dean ARNP - 05/20/2014 1:26 PM PDTFormatting of this note might be different fr om the original. H&P by CITLALY Leonard at 05/20/14 1326 Author: CITLALY Leonard Service: (none) Author Type: Advanced Registered Nurse Prac titioner Filed: 05/20/14 1529 Encounter Date: 05/20/2014 Status: Signed Skilled Helper: CITLALY Leonard (Advanced Registered Nurse Practitioner) ANTICOAGULATION HISTORY & PHYSICAL Name: Kevyn Guzman Date of : 1955 Provider: Date of Service: 05/20/2014 Discharge Date: ANTICOAGULATION NOTE INITIAL CONSULT REFERRING PROVIDER: Edin Gutiérrez Do [address] [place] [address] PRIMARY CARE PHYSICIAN: EDIN GUTIÉRREZ INDICATION FOR ANTICOAGULATION: ICD-9-CM 1. Atrial fibrillation 427.31 POCT INR 2. TIA (transient ischemic attack) 435.9 POCT INR HISTORY OF PRESENT ILLNESS: Kevyn Guzman is a 58 y.o. male who was placed on warfarin therapy May 11 for atrial fibri llation and TIA (left face and arm numbness). Goal INR is 2.0 - 3.0 and treatment length is indefinite. He is a resident at [facility]. PAST MEDICAL HISTORY: Past Medical History Diagnosis Date Diabetes mellitus type II Atrial fibrillation Hypertension Hyperlipidemia Anxiety Depression Renal failure ARF (acute renal failure) 03/02/2013 COPD (chronic obstructive pulmonary disease) 03/02/2013 Development delay Unspecified visual disturbance reading glasses WARD (obstructive sleep apnea) 08/11/2012 does not use CPAP because of the noise GIB (gastrointestinal bleeding) 03/02/[address] Nur, rectal ulcers, nodule of GE junction Hypercholesterolemia 07/08/2013 Obesity, Class I, BMI 30-34.9 07/08/2013 Facial droop 07/08/2013 Basal cell carcinoma 09/26/2012 arm and back Other chronic pain Stroke TIA (transient ischemic attack) PAST SURGICAL HISTORY: Past Surgical History Procedure Laterality Date Unlisted procedure arthroscopy Knee surgery rt knee, patella Leg surgery LLE Colonoscopy Cholecystectomy, laparoscopic 09/12/2012 Procedure: LAPAROSCOPIC - CHOLECYSTECTOMY; Surgeon: Jevon Vargas DO; Location: [facility] MAIN OR; Service: General; Laterality: N/A; Abdominal surgery Cholecystectomy Skin cancer excision 10/10/2012 Procedure: EXCISION - SKIN CANCER; Surgeon: Sy Fierro MD; Location: [facility] MAIN OR ; Service: Plastics; Laterality: Left; upper arm and upper back w/frozen section Esophagogastroduodenoscopy 03/03/2013 Procedure: ESOPHAGOGASTRODUODENOSCOPY; Surgeon: Howie Gibson MD; Location: [facility] ENDOSCOPY; S ervice: Gastroenterology; Laterality: N/A; Colonoscopy 03/04/2013 Procedure: COLONOSCOPY; Surgeon: Howie Gibson MD; Location: [facility] ENDOSCOPY; Service: Gastroe nterology; Laterality: N/A; Upper gastrointestinal endoscopy Skin biopsy Hernia repair 07/03/2013 Procedure: LAPAROSCOPIC - HERNIA - INCISIONAL; Surgeon: Jevon Vargas DO; Location: [facility] MAIN OR; Service: General; Laterality: N/A; Skin lesion excision Left 05/05/2014 Procedure: EXCISION - LESION - FROZEN SECTION; Surgeon: Sy Fierro MD; Location: [facility] MAIN OR; Service: Plastics; Laterality: Left; forearm CURRENT MEDICATIONS: Current Outpatient Prescriptions Medication Sig Dispense Refill Albuterol Sulfate (VENTOLIN HFA IN) Inhale 2 puffs into the lungs as needed. 108 mcg/ac t Uxbid-U-Qujhjujjzaatz (BEANO) TABS Take 150 Units by mouth 3 (three) times daily as nee ded (As needed for gas). amLODIPine (NORVASC) 10 MG tablet Take 1 tablet by mouth daily. 30 tablet 1 antipyrine-benzocaine (AURALGAN) otic solution Place 4 drops into both ears daily. ARIPiprazole (ABILIFY) 15 MG tablet Take 10 mg by mouth daily. aspirin EC 81 MG EC tablet Take 1 tablet by mouth daily with breakfast. 14 tablet 0 calcium carbonate (TUMS) 500 MG chewable tablet Take 500-1,000 mg by mouth daily as nee ded. For GERD clonazePAM (KLONOPIN) 1 MG tablet Take 0.5 mg by mouth 2 (two) times daily as needed fo r Anxiety. clonidine (CATAPRES) Place 1 patch onto the skin once a week. 0.2mg/hr Indications: la st dose place 05/02 diltiazem (CARDIZEM CD) 240 MG 24 hr capsule Take 1 capsule by mouth daily. 180 mg at h s 15 capsule 0 fenofibrate (TRIGLIDE) 160 MG tablet Take 160 mg by mouth daily. furosemide (LASIX) 20 MG tablet Take 1 tablet by mouth daily. 7 tablet 0 gabapentin (NEURONTIN) 100 MG capsule Take 100 mg by mouth every evening. HYDROcodone-acetaminophen (NORCO) 5-325 MG per tablet Take 1 tablet by mouth every 6 (s ix) hours as needed for Pain. HYDROcodone-acetaminophen (NORCO) 7.5-325 MG per tablet Take 1 tablet by mouth every 6 (six) hours as needed for Pain. 20 tablet 0 insulin glargine (LANTUS) 100 UNIT/ML injection Inject 82 Units into the skin nightly. (Patient taking differently: Inject 60 Units into the skin nightly.) 10 mL 12 lamoTRIgine (LAMICTAL) 100 MG tablet Take 100 mg by mouth nightly. neywvdmsj-tlpbypqj-mfnqevyoe hydroxide-simethicone Take 40 mLs by mouth daily as needed . lisinopril (ZESTRIL) 40 MG tablet Take 1 tablet by mouth every evening. 30 tablet 11 LORazepam (ATIVAN) 1 MG tablet Take 1 mg by mouth every 6 (six) hours as needed for Anx iety. meclizine (ANTIVERT) 25 MG tablet Take 25 mg by mouth 3 (three) times daily as needed. Mometasone Furo-Formoterol Fum (DULERA) 100-5 MCG/ACT AERO Inhale 2 puffs into the lung s 2 (two) times daily. nitroGLYCERIN (NITROSTAT) 0.[address] 0.4 mg under the tongue every 5 (five) minutes as needed. NOVOLOG 100 UNIT/ML injection INJ 3U SUB-Q TID(AC) AND INJECT SUBCUTANEOUSLY PER SLIDIN G SCALE 1-70= 2U, 71-100=3U, 101-120= 4U, 121-150=5U, 151-180=6U, 181-210= 7U, 211- 10 mL 5 omeprazole (PRILOSEC) 20 MG capsule Take 1 capsule by mouth 2 (two) times daily. 60 cap blake 1 ondansetron (ZOFRAN-ODT) 4 MG disintegrating tablet Take 4 mg by mouth every 6 (six) ho urs as needed for Nausea. paroxetine (PAXIL) 40 MG tablet Take 40 mg by mouth every morning. polyethylene glycol (GLYCOLAX) powder DISSOLVE 17GM IN LIQUID AND DRINK BY MOUTH EVERY DAY 527 g 5 pravastatin (PRAVACHOL) 20 MG tablet Take 80 mg by mouth nightly. psyllium (METAMUCIL SMOOTH TEXTURE) 28 % packet Take 1 packet by mouth daily. 30 each 0 tamsulosin (FLOMAX) 0.4 MG capsule Take 0.4 mg by mouth 2 (two) times daily. Administer 30 minutes after the same meal each day. Capsules should be swallowed whole; do not crush, chew, or open tiotropium (SPIRIVA) 18 MCG inhalation capsule Inhale 18 mcg into the lungs daily. warfarin (COUMADIN) 5 MG tablet Take 1 tablet by mouth daily. 7 tablet 0 No current facility-administered medications for this visit. ALLERGIES: Allergies Allergen Reactions Vitamin B12 Rash FAMILY HISTORY: Family History Problem Relation Age of Onset Heart disease Father Heart disease Sister Diabetes type II Sister Heart Problems Brother SOCIAL HISTORY: History Social History Marital Status: Spouse Name: N/A Number of Children: 1 Years of Education: s. college Occupational History disabled Social History Main Topics Smoking status: Never Smoker Smokeless tobacco: Never Used Alcohol Use: 0.0 oz/week 1-2 Cans of beer per week Comment: once week, occasionally Drug Use: No Sexual Activity: Not Currently Other Topics Concern Not on file Social History Narrative Lives in skilled nursing, IADL, full code REVIEW OF SYSTEMS: Review of Systems Constitutional: Negative. HENT: Positive for trouble swallowing. Respiratory: Positive for apnea and shortness of breath. Negative for cough. Cardiovascular: Positive for palpitations and leg swelling. Negative for chest pain. Gastrointestinal: Negative. Genitourinary: Negative. Neurological: Negative. Hematological: Does not bruise/bleed easily. Psychiatric/Behavioral: The patient is nervous/anxious. PHYSICAL EXAMINATION: Physical Exam Constitutional: He is oriented to person, place, and time. He appears well-developed and we ll-nourished. No distress. BP: 154/108 HR: 92 RR: 18 HENT: Head: Normocephalic and atraumatic. Nose: Nose normal. Eyes: Conjunctivae are normal. Cardiovascular: Normal rate and regular rhythm. Pulmonary/Chest: Effort normal and breath sounds normal. He has no wheezes. Neurological: He is alert and oriented to person, place, and time. Skin: Skin is dry. Steri strips noted to left forearm Psychiatric: He has a normal mood and affect. His behavior is normal. 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 Continue taking Warfarin 5 mg daily. 2. Education provided today included indication for warfarin, need for medication complianc e and INR follow up as indicated, potential food/medication interactions were discussed and recommendations made. 3. Follow up scheduled for May 26. documented in this encounter Plan of Treatment +--------+ + + + + | Date | Type | Specialty | Care Team | Description | +--------+ + + + + | 10/16/ | Anti-coag | Anticoagulation | Brittany Zaragoza | | | 2019 | visit | | CITLALY Lord [address] | | | | | | [address] [place], | | | | | | [place] [address] | | | | | | [phone] | | | | | | | | +--------+ + + + + documented as of this encounter Procedures + +--------+ + + + | Procedure Name | Priori | Date/Time | Associated Diagnosis | Comments | | | ty | | | | + +--------+ + + + | POC INR | Routin | 05/20/2014 | | Results for this | | | e | 12:00 AM | | procedure are in the | | | | PDT | | results section. | + +--------+ + + + documented in this encounter Results POC INR (05/20/2014 12:00 AM PDT) + +-------+ + + + | Component | Value | Ref Range | Performed | Pathologist | | | | | At | Signature | + +-------+ + + + | INR | 2.4 | | EXTERNAL | | | | | | LAB | | + +-------+ + + + + + | Specimen [...]
--- OUTSIDE RECORDS SUMMARY | ~2019-10-12 | XMS | Encounter Summary ---
Demographics + + + | Address | [address] | | | [place] [address] | + + + | Home Phone | | + + + | Preferred Language | Unknown | + + + | Marital Status | | + + + | Muslim Affiliation | 1027 | + + + | Race | White | + + + | Ethnic Group | Not or | + + + Author + + + | Author | [facility] | | | and [place] | + + + | Organization | [facility] | | | and [place] | + + + | Address | Unknown | + + + | Phone | Unavailable | + + + Support + + + + + | Name | Relationship | Address | Phone | + + + + + | Sammi Kohler | ECON | [place] [address] | | + + + + + Care Team Providers + +------+ + | Care Ornament Setter Name | Role | Phone | + +------+ + PCP | Unavailable | + +------+ + Encounter Details +--------+ + + + + | Date | Type | Department | Care Team | Description | +--------+ + + + + | 12/04/ | Emergency | [facility] | Mik Kwong, | Closed head injury, | | 2013 | | MEDICAL CENTER | [address] | initial encounter; | | | | EMERGENCY CENTER | [place] [address] | Recurrent falls; | | | | [address] | [phone] | Visual changes | | | | [place], [place] | | | | | | [address] | | | | | | [phone] | | | +--------+ + + + [...] + + documented as of this encounter Progress Notes Conversion Transaction, Provider Unknown - 12/04/2013 11:33 AM PDTFormatting of this note m ight be different from the original. Case Management by QUINN Richardson at 12/04/13 1133 Author: QUINN Richardson Service: (none) Author Type: Asthma Educator Filed: 12/04/13 1150 Date of Service: 12/04/131132 Status: Addendum Fabric Sourcer: QUINN Richardson (Asthma Educator) Related Notes: Original Note by QUINN Richardson (Asthma Educator) filed at 12/04/13 113 COLTON ALERT: Patient involved with [place] [facility] ([facility]). CM has left a message with Margarita Laura, coordinator for program ([phone]), requesting an u pdate on their services. Nursing is concerned patient may need a higher level of care. 11:48 AM CM spoke with ACCP coordinator and there will be a meeting held on Monday at [facility] to discuss patient's current care. A claim representative for the [employer] will also b e present to assist in coordinating services with the purpose of reducing transfers to hospi nicole and ED visits. The other reason to meet is to help plan with [facility] staff how to provi de patient more supervision. CM is available as needed. docume nted in this encounter ED Notes Conversion Transaction, Provider Unknown - 12/04/2013 11:46 AM PDTFormatting of this note m ight be different from the original. ED Notes by Jaye Meraz at 12/04/13 1146 Author: Jaye Meraz Service: (none) Author Type: General Distillery Worker Filed: 12/04/131145 Date of Service: 12/04/13 114 Status: Signed Fabric Sourcer: Jaye Meraz (General Distillery Worker) EKG completed, results shown to Dr Varghese Meraz 12/04/13 114 Rubi Frias ARNP - 12/04/2013 11:25 AM PDTFormatting of this note might be different from the o riginal. ED Notes by Rubi Calvo RN at 12/04/131124 Author: Rubi Calvo RN Service: (none) Author Type: Registered Nurse Filed: 12/04/131124 Date of Service: 12/04/131124 Status: Signed Fabric Sourcer: Rubi Calvo RN (Registered Nurse) MD at bedside. Rubi Calvo RN 12/04/131124 Yulisa Knapp MD - 12/04/2013 11:21 AM PDTFormatting of this note might be different from the bobbi ginal. ED Provider Notes by Mik Kwong MD at 12/04/131120 Author: Mik Kwong MD Service: Emergency Department Author Type: Physician Filed: 12/07/13 1343 Date of Service: 12/04/131120 Status: Signed Fabric Sourcer: Mik Kwong MD (Physician) [facility] Department of Emergency Medicine 11:21 AM History of Present Illness Patient Identification Kevyn Guzman is a 57 y.o. male. Patient information was obtained from patient. History/Exam limitations: none. Patient presented to the Emergency Department by: [facility] 1723 Chief Complaint Chief Complaint Patient presents with Fall [place] alf called EMS for frequent falls. Blurred Vision blurred vision that started this morning. The patient presents to ED with complaints of blurred vision in his L eye s/p fall. The cleopatra prabhakar fell this morning at 6:00 AM. He reports that he lost his balance as he was coming sami k from the bathroom. He has a h/o frequent falls. Onset of blurred vision in L eye was this morning around 10:30 AM, with a constant course since that time. The symptoms are described to be of moderate severity. The patient describes the quality and location of the symptoms as the following: blurred vision in L eye that requires blinking multiple times to clear brooklynn rriness. The patient also reports having a cough and L sided head pain. Patient denies chest pain, palpitations, numbness, or tingling. The pt additionally reports he also fell a coupl e days ago while walking to his bed. He was seen here on 12/02/13 and brought in for observa tion. Per EMS: [facility] PCP: JERRELL GUTIÉRREZ Past Medical History Diagnosis [...] Basal cell carcinoma 09/26/2012 arm and back Past Surgical History Procedure Laterality Date Unlisted procedure arthroscopy Knee surgery rt knee, patella Leg surgery LLE Colonoscopy Cholecystectomy, laparoscopic 09/12/2012 Procedure: LAPAROSCOPIC - CHOLECYSTECTOMY; Surgeon: Jevon Vargas DO; Location: [facility] MAIN OR; Service: General; Laterality: N/A; Abdominal surgery Cholecystectomy Skin cancer excision 10/10/2012 Procedure: EXCISION - SKIN CANCER; Surgeon: Sy Fierro MD; Location: [facility] MAIN OR ; Service: Plastics; Laterality: Left; upper arm and upper back w/frozen section Esophagogastroduodenoscopy 03/03/2013 Procedure: ESOPHAGOGASTRODUODENOSCOPY; Surgeon: Howie Gibson MD; Location: [facility] ENDOSCOPY; S ervice: Gastroenterology; Laterality: N/A; Colonoscopy 03/04/2013 Procedure: COLONOSCOPY; Surgeon: Howie Gibson MD; Location: [facility] ENDOSCOPY; Service: Gastroe nterology; Laterality: N/A; Upper gastrointestinal endoscopy Skin biopsy Hernia repair 07/03/2013 Procedure: LAPAROSCOPIC - HERNIA - INCISIONAL; Surgeon: Jevon Vargas DO; Location: [facility] MAIN OR; Service: General; Laterality: N/A; Prior to Admission medications Medication Sig Start Date End Date Taking? Authorizing Provider Albuterol Sulfate (VENTOLIN HFA IN) Inhale 2 puffs into the lungs as needed. Historical Provider Zlhpj-H-Ihrxhfoevjcmn (BEANO) TABS Take 150 Units by mouth 3 (three) times daily as needed (As needed for gas). Historical Provider amLODIPine (NORVASC) 10 MG tablet Take 1 tablet by mouth daily. 12/03/13 Augustine ramírez MD antipyrine-benzocaine (AURALGAN) otic solution Place 4 drops into both ears daily. Histo rical Provider ARIPiprazole (ABILIFY) 15 MG tablet Take 20 mg by mouth daily. Historical Provider aspirin 81 MG chewable tablet Take 1 tablet by mouth daily with breakfast. 05/27/13 05/27/14 Augustine Agosto MD calcium carbonate (TUMS) 500 MG chewable tablet Take 500-1,000 mg by mouth daily as needed. For GERD Historical Provider clonazePAM (KLONOPIN) 1 MG tablet Take 1 mg by mouth 2 (two) times daily as needed for Anxi ety. Historical Provider diltiazem (CARDIZEM CD) 240 MG 24 hr capsule Take 1 capsule by mouth daily. 11/30/13 Kristian Mae MD docusate sodium (COLACE) 100 MG capsule Take 250 mg by mouth 2 (two) times daily. "Hold if loose stools" as noted on APR from pt's facility. Historical Provider fenofibrate (TRIGLIDE) 160 MG tablet Take 160 mg by mouth daily. Historical Provider gabapentin (NEURONTIN) 100 MG capsule Take 100 mg by mouth every evening. Historical Pro vider insulin glargine (LANTUS) 100 UNIT/ML injection Inject 82 Units into the skin nightly. 11/07 09/19 Augustine Agosto MD lamoTRIgine (LAMICTAL) 100 MG tablet Take 100 mg by mouth nightly. Historical Provider lyybkrikf-lgehivnl-sydgnlwsc hydroxide-simethicone Take 40 mLs by mouth daily as needed. Historical Provider lisinopril (ZESTRIL) 40 MG tablet Take 40 mg by mouth every evening. 03/05/13 03/05/14 Scott Martínez MD loperamide (IMODIUM) 2 MG capsule Take 2 mg by mouth as needed. 4 mg after first loose stoo l, then 2 mg after each further loose stool Not to exceed 8 mg per day. Historical Provider lurasidone (LATUDA) 20 MG tablet Take 20 mg by mouth nightly. T Historical Provider meclizine (ANTIVERT) 25 MG tablet Take 1 tablet by mouth 3 (three) times daily as needed (v ertigo). 11/25/13 12/05/13 Zach Tena MD Mometasone Furo-Formoterol Fum (DULERA) 100-5 MCG/ACT AERO Inhale 2 puffs into the lungs 2 (two) times daily. Historical Provider nitroGLYCERIN (NITROSTAT) 0.4 MG [...] (two) times daily. 05/27/13 Augustine Agosto MD ondansetron (ZOFRAN-ODT) 4 MG disintegrating tablet Take 4 mg by mouth every 6 (six) hours as needed for Nausea. Historical Provider oxyCODONE-acetaminophen (PERCOCET) 5-325 MG per tablet Take 1 tablet by mouth every 6 (six) hours as needed for Pain. Historical Provider paroxetine (PAXIL) 40 MG tablet Take 40 mg by mouth every morning. Historical Provider polyethylene glycol (GLYCOLAX) powder DISSOLVE 17GM IN LIQUID AND DRINK BY MOUTH EVERY DAY 04/23/13 Bang Yeh MD pravastatin (PRAVACHOL) 20 MG tablet Take 20 mg by mouth nightly. Historical Provider tamsulosin (FLOMAX) 0.4 MG capsule Take 0.4 mg by mouth 2 (two) times daily. Administer 30 minutes after the same meal each day. Capsules should be swallowed whole; do not crush, chew , or open Historical Provider tiotropium (SPIRIVA) 18 MCG inhalation capsule Inhale 18 mcg into the lungs daily. Histo rical Provider Allergies Allergen Reactions Vitamin B12 Rash History Social History Marital Status: Single Spouse Name: N/A Number of Children: 1 Years of Education: s. college Occupational History disabled Social History Main Topics Smoking status: Never Smoker Smokeless tobacco: Never Used Alcohol Use: 0.0 oz/week 1-2 Cans of beer per week Comment: once week, occasionally Drug Use: No Sexually Active: Not Currently Other Topics Concern Not on file Social History Narrative Lives in fdc, IADL, full code Family History Problem Relation Age of Onset Heart disease Father Heart disease Sister Diabetes type II Sister Heart Problems Brother Review of Systems Constitutional: Negative for fever or recent illness Eyes: Positive for blurred vision in L eye Nose: Negative for congestion Throat: Negative for sore throat CV: Negative for chest pain Resp: Positive for cough Negative for wkcbmsezc-qk-oziuva GI: Negative for abdominal pain, nausea, vomiting, or diarrhea : Negative for urinary problems, dysuria, frequency or hematuria Musculoskeletal: Negative for back pain, neck pain or extremity pain Skin: Negative for rash Neuro/Psych: Positive for fall Positive for L sided head pain Negative for weakness or numbness All other systems reviewed and negative except as noted. Physical Exam BP 165/77 | Pulse 97 | Temp(Src) 98.9 F (37.2 C) (Oral) | Resp 14 | SpO2 91% Vital signs interpretation: Hypertensive, otherwise WNL Pulse Oximetry interpretation: Normal General: Alert, in no apparent distress Eyes: Normal inspection, non-icteric, non-injected, PERRL, EOMI, no nystagmus, vision subj ectively decreased to L eye ENT: Ears normal, R TM normal, L TM occluded by cerumen Nose normal Pharynx normal Moist mucous membranes No erythema, exudates or lesions Neck: Normal inspection Supple, no lymphadenopathy CV: Rate and rhythm normal No murmurs No carotid bruits Symmetric radial pulses Respiratory: Bilaterally clear to auscultation No rales, wheezing or rhonchi Abdomen: Soft, non-tender, non-distended No guarding or rebound Normal active bowel sounds Back: Normal inspection Extremities: No edema Calves nontender Skin: Color normal Small Warm and dry No rash Neuro: Alert, no AMS No gross motor/sensory deficits Neuro: Alert. Oriented x3. Speech clear and appropriate. No aphasia, no dysarthria. No facial droop PERRL, EOMI, no nystagmus CN II-XII grossly intact Motor strength intact, no deficits Strong symmetric conventions assistant strength No pronator drift No lower extremity drift Intact finger to nose Intact heel to carmichael Medical Decision Making and Emergency Department Course ED Department Course Patient presents to ED with complaints of blurred vision in L eye s/p fall. My DDx includes , but is not limited to: concussion, CHI, CVA, anemia, ACS, metabolic abnormality, electroly te abnormality, vs other. Will order labs, EKG, CT head, and reevaluate the patient. I will have our case worker consult with the patient. 1:19 PM Patient reevaluation. Patient is stable and feeling better at this time. Vision sami k to baseline per patient. I discussed all ED results and my clinical impression with the cleopatra prabhakar. Patient is ready for discharge. I advised patient to follow up with a PCP and we disc ussed the emergent signs and symptoms that would necessitate a return to ED. All questions a nd concerns addressed. Filed Vitals: 12/04/13 1109 12/04/13 1225 12/04/13 1329 BP: 165/77 148/71 173/79 Pulse: 97 88 94 Temp: 98.9 F (37.2 C) TempSrc: Oral Resp: 14 14 20 SpO2: 91% 95% 93% Records Reviewed Old medical records. Nursing notes. COLTON Alert: The patient has been seen 38 times in a [place] ED within the past 12 months . ED Care Guidelines from [facility]: "no controlled substances should be administered in the ED or prescribed from the ED for subjective pain." Laboratory Evaluation Results Procedure Component Value Ref Range Date/Time POC clinitek 10 [[id number]] (Abnormal) Collected: 12/04/13 1408 Order Status: Completed Updated: 12/04/13 1409 Color, UA YELLOW Clarity, UA CLEAR Glucose, UA >999 (A) NEGATIVE mg/dL Bilirubin, UA NEGATIVE NEGATIVE Ketones, UA NEGATIVE NEGATIVE mg/dL Spec Grav, UA 1.015 1.001 - 1.035 Blood, UA NEGATIVE NEGATIVE pH, UA 5.0 4.6 - 8.0 Protein, UA NEGATIVE NEGATIVE mg/dL Urobilinogen, UA 0.2 <1.1 mg/dL Nitrite, UA NEGATIVE NEGATIVE WBC, UA NEGATIVE NEGATIVE Cardiac Panel [[id number]] (Abnormal) Collected: 12/04/13 1140 Order Status: Completed Updated: 12/04/13 1217 WBC 10.3 3.8 - 11.0 K/uL RBC 4.90 4.20 - 5.70 M/uL HGB 12.8 (L) 13.2 - 17.0 g/dL HCT 39.3 39.0 - 50.0 % MCV 80.2 80.0 - 100.0 fl MCH 26.1 (L) 27.0 - 34.0 pg MCHC 32.6 32.0 - 35.5 g/dL RDW SD 40.7 37 - 53 fl PLT 272 150 - 400 K/uL MPV 7.6 fl DIFF TYPE AUTOMATED NEUTROPHILS 75.9 % LYMPHOCYTES 16.5 % MONOCYTES 6.1 % EOSINOPHILS 0.5 % BASOPHILS 1.0 % NEUTROPHILS ABS 7.8 (H) 1.9 - 7.4 K/uL LYMPHOCYTES ABS 1.7 1.0 - 3.9 K/uL MONOCYTES ABS 0.6 0 - 0.8 K/uL EOSINOPHILS ABS 0.1 0 - 0.5 K/uL BASOPHILS ABS 0.1 0 - 0.1 K/uL SODIUM 139 135 - 143 mmol/L POTASSIUM 3.7 3.5 - 4.9 mmol/L CHLORIDE 104 99 - 109 mmol/L CO2 30 23 - 32 mmol/L ANION GAP AGAP 9 5 - 20 mmol/L GLUCOSE 263 (H) 65 - 99 mg/dL BUN 20 8 - 25 mg/dL CREATININE 1.12 0.70 - 1.30 mg/dL BUN/CREAT 18 CALCIUM 9.1 8.5 - 10.2 mg/dL TOTAL PROTEIN 7.0 6.3 - 8.2 g/dL Albumin 3.2 (L) 3.6 - 5.0 g/dL GLOBULIN 3.9 1.3 - 4.9 g/dL A/G 0.8 (L) 1.0 - 2.4 TBIL 0.2 0.1 - 1.5 mg/dL ALK PHOS 85 35 - 115 U/L AST 20 10 - 45 U/L ALT 23 10 - 65 U/L EGFR >60 >60 mL/min/1.73m2 CPK 80 55 - 400 U/L INR 1.0 APTT 22 (L) 23 - 32 seconds MMB 2.1 0.5 - 3.6 ng/mL CK-MB Index 2.6 I personally reviewed the lab results and they have been posted to the chart. Pertinent po sitive and negative findings have been addressed appropriately. Radiology and EKG Evaluation Imaging Results CT Head Non-Con (Final result) Result time: 12/04/13 12:08:40 Final result by Rad Results In Richard (12/04/13 12:06:12) Impression: 1. No acute intracranial hemorrhage, mass or infarct. Narrative: HISTORY: Head injury. TECHNIQUE: 5-mm axial noncontrast images were acquired from the foramen magnum through the cranial saad lana. COMPARISON: December 02, 2013 FINDINGS: No acute intracranial hemorrhage, mass or infarct Basal cisterns are patent. The ventricles and sulci are normal in size and configuration Orbits are normal. Frontal sinus opacification. Ethmoid sinuses are clear. Maxillary sinuses are clear. Spheno id sinus is clear. Mastoid processes are well pneumatized. No acute fracture. EKG 1143 Normal sinus rhythm at a rate of 87. No ectopy. No STEMI or other ischemic changes. No significant changes from This EKG was interpreted by me independently. Mik Kwong MD ED Diagnoses Final diagnoses Closed head injury, initial encounter Recurrent falls Visual changes Disposition: ED Disposition Orders Discharge Condition at discharge: Stable Follow-up Information Follow up With Details Comments Contact Info Jerrell Gutiérrez, DO Keep your appointment on Monday (12/06/13) [address] [facility] [address] [facility] Emergency Department If symptoms worsen [address] [place] [id number] Discharge Medications: Discharge Medication List as of 12/04/2013 2:52 PM Mik Kwong MD Procedures Additional Documentation Procedures Attending Note: Documentation assistance provided by Ivy Montoya (Scribe). Information recorded by the scribe has been reviewed and validated by me. Troy laughlin with its contents. MD Mik Barnes MD 12/07/13 1343 onversion Transact ion, Provider Unknown - 12/04/2013 11:08 AM PDTFormatting of this note might be different fr om the original. ED Notes by Jv Liriano RN at 12/04/13 1104 Author: Jv Liriano RN Service: (none) Author Type: Registered Nurse Filed: 12/04/131107 Date of Service: 12/04/131107 Status: Signed Fabric Sourcer: Jv Liriano RN (Registered Nurse) Bed: 11 Expected date: Expected time: Means of arrival: Comments: docume nted in this encounter Plan of Treatment +--------+ + + + + | Date | Type | Specialty | Care Team | Description | +--------+ + + + + | 10/16/ | Anti-coag | Anticoagulation | Brittany Zaragoza | | | 2019 | visit | | [address] | | | | | | [address], | | | | | | [place] [address] | | | | | | [phone] | | | | | | | | +--------+ + + + + documented as of this encounter Procedures + +--------+ + + + | Procedure Name | Priori | Date/Time | Associated Diagnosis | Comments | | | ty | | | | + +--------+ + + + | CT HEAD WO CONTRAST | Routin | 12/04/2013 | | Results for this | | | e | 11:57 AM | | procedure are in the | | | | PDT | | results section. | + +--------+ + + + | ECG 12 LEAD | Routin | 12/04/2013 | | Results for this | | | e | 11:43 AM | | procedure are in the | | | | PDT | | results section. | + +--------+ + + + | HISTORICAL LAB PANEL | Routin | 12/04/2013 | | Results for this | | RESULT | e | 11:40 AM | | procedure are in the | | | | PDT | | results section. | + +--------+ + + + documented in this encounter Results CT Head wo Contrast (12/04/2013 11:57 AM PDT) + + | Specimen | + + | | + + + + + | Impressions | Performed At | + + + | 1. No acute intracranial hemorrhage, mass or infarct. | | | | | + + + + + + | Narrative | Performed At | + + + | HISTORY: Head injury. TECHNIQUE: 5-mm axial noncontrast images | | | were acquired from the foramen magnum through the cranial vertex. | | | COMPARISON: December 02, 2013 FINDINGS: No acute intracranial | | | hemorrhage, mass or infarct Basal cisterns are patent. The | | | ventricles and sulci are normal in size and configuration Orbits | | | are normal. Frontal sinus opacification. Ethmoid sinuses are | | | clear. Maxillary sinuses are clear. Sphenoid sinus is clear. Mastoid | | | processes are well pneumatized. No acute fracture. | | + + + + + | Procedure Note | + + | Richard, Rad Conversion - 09/21/2018 3:31 PM PDT HISTORY:Head injury. TECHNIQUE:5-mm | | axial noncontrast images were acquired from the foramen magnum through the cranial | | vertex. COMPARISON:December 02, 2013 FINDINGS: No acute intracranial hemorrhage, mass or | | infarct Basal cisterns are patent. The ventricles and sulci are normal in size and | | configuration Orbits are normal. Frontal sinus opacification. Ethmoid sinuses are clear. | | Maxillary sinuses are clear. Sphenoid sinus is clear. Mastoid processes are well | | pneumatized. No acute fracture. IMPRESSION: 1. No acute intracranial hemorrhage, mass | | or infarct. | | | |FINDINGS: | | | |No acute intracranial hemorrhage, mass or infarct | | | |Basal cisterns are patent. The ventricles and sulci are normal in size and configuration | | | |Orbits are normal. | | | |Frontal sinus opacification. Ethmoid sinuses are clear. Maxillary sinuses are clear. Spheno id sinus is clear. Mastoid processes are well pneumatized. | | | |No acute fracture. | | | | | |IMPRESSION: | | | |1. No acute intracranial hemorrhage, mass or infarct. | | | | | + + ECG 12 lead (12/04/2013 11:43 AM PDT) + + + + + + | Component | Value | Ref Range | Performed | Pathologist | | | | | At | Signature | + + + + + + | DIAGNOSIS: | Normal sinus rhythmST & | | EXTERNAL | | | | T wave abnormality, | | LAB | | | | consider inferior | | | | | | ischemiaAbnormal ECGWhen | | | | | | compared with ECG of | | | | | | 02-DEC-2013 | | | | | | 05:46,Nonspecific T wave | | | | | | abnormality no longer | | | | | | evident in Lateral | | | | | | leadsThis ECG contains | | | | | | Unconfirmed | | | | | | Interpretation | | | | | | Statements. See ED | | | | | | Record for Physician | | | | | | Interpretation. | | | | | | Confirmed by MUSE READ | | | | | | ONLY, -COMPUTER ([id number]), | | | | | | commissioning editor SANYA DUPONT ([id number]) | | | | | | on 12/04/2013 12:11:35 | | | | | | PM | | | | + + + + + + + + | Specimen | + + | | + + + + + | Narrative | Performed At | + + + | Historically converted procedure from [facility] Epic environment | EXTERNAL LAB | + + + + +---------+ + + | Performing | Address | City/State/Zipcode | Phone Number | | Organization | | | | + +---------+ + + | EXTERNAL LAB | | | | + +---------+ + + HISTORICAL LAB PANEL RESULT (12/04/2013 11:40 AM PDT) + + + + + -+ | Component | Value | Ref Range | Performed | Pathologist | | | | | At | Signature | + + + + + -+ | WBC | 10.3Comment: Testing | 3.8 - 11.0 K/uL | EXTERNAL | | | | performed at [facility];[address] | | LAB | | | | [facility];[place], [place] | | | | | | [address] | | | | + + + + + -+ | Non- | 4.90Comment: Testing | 4.20 - 5.70 | EXTERNAL | | | Red Blood | performed at [facility];[address] | M/uL | LAB | | | Cells | [address];[place] | | | | | Counted | [id number] | | | | + + + + + -+ | Hemoglobin | 12.8 (L)Comment: Testing | 13.2 - 17.0 | EXTERNAL | | | | performed at [facility];[address] | g/dL | LAB | | | | [address];[place] | | | | | | [address] | | | | + + + + + -+ | Hematocrit, | 39.3Comment: Testing | 39.0 - 50.0 % | EXTERNAL | | | POC | performed at [facility];[address] | | LAB | | | | [address];[place] | | | | | | [address] | | | | + + + + + -+ | MCV | 80.2Comment: Testing | 80.0 - 100.0 fl | EXTERNAL | | | | performed at [facility];[address] | | LAB | | | | [address];[place] | | | | | | [address] | | | | + + + + + -+ | MCH | 26.1 (L)Comment: Testing | 27.0 - 34.0 pg | EXTERNAL | | | | performed at [facility];[address] | | LAB | | | | [address];[place] | | | | | | [address] | | | | + + + + + -+ | MCHC | 32.6Comment: Testing | 32.0 - 35.5 | EXTERNAL | | | | performed at [facility];[address] | g/dL | LAB | | | | [address];[place] | | | | | | [address] | | | | + + + + + -+ | RDW-CV | 40.7Comment: Testing | 37 - 53 fl | EXTERNAL | | | | performed at [facility];[address] | | LAB | | | | [address];[place] | | | | | | [address] | | | | + + + + + -+ | Platelet | 272Comment: Testing | 150 - 400 K/uL | EXTERNAL | | | Count | performed at [facility];[address] | | LAB | | | Plasma | [address];[place] | | | | | | [address] | | | | + + + + + -+ | MPV | 7.6Comment: Testing | fl | EXTERNAL | | | | performed at [facility];[address] | | LAB | | | | [address];[place] | | | | | | [address] | | | | + + + + + -+ | Differentia | AUTOMATEDComment: | | EXTERNAL | | | l Type | Testing performed at | | LAB | | | | [facility];[address];[place] [address] | | | | + + + + + -+ | % Segmented | 75.9Comment: Testing | % | EXTERNAL | | | | performed at [facility];[address] | | LAB | | | Neutrophils | [address];[place] | | | | | | [address] | | | | + + + + + -+ | % | 16.5Comment: Testing | % | EXTERNAL | | | Lymphocytes | performed at [facility];[address] | | LAB | | | | [address];[place] | | | | | | [address] | | | | + + + + + -+ | % Monocytes | 6.1Comment: Testing | % | EXTERNAL | | | | performed at [facility];[address] | | LAB | | | | [address];[place] | | | | | | [address] | | | | + + + + + -+ | % | 0.5Comment: Testing | % | EXTERNAL | | | Eosinophils | performed at [facility];[address] | | LAB | | | | [address];[place] | | | | | | [address] | | | | + + + + + -+ | % Basophils | 1.0Comment: Testing | % | EXTERNAL | | | | performed at [facility];[address] | | LAB | | | | [address];[place] | | | | | | [address] | | | | + + + + + -+ | Absolute | 7.8 (H)Comment: Testing | 1.9 - 7.4 K/uL | EXTERNAL | | | Segmented | performed at [facility];[address] | | LAB | | | Neutrophils | [address];[place] | | | | | | [address] | | | | + + + + + -+ | Absolute | 1.7Comment: Testing | 1.0 - 3.9 K/uL | EXTERNAL | | | Lymphocytes | performed at [facility];[address] | | LAB | | | | [address];[place] | | | | | | [address] | | | | + + + + + -+ | Absolute | 0.6Comment: Testing | 0 - 0.8 K/uL | EXTERNAL | | | Monocytes | performed at [facility];[address] | | LAB | | | | [address];[place] | | | | | | [address] | | | | + + + + + -+ | Absolute | 0.1Comment: Testing | 0 - 0.5 K/uL | EXTERNAL | | | Eosinophils | performed at [facility];[address] | | LAB | | | | [address];[place] | | | | | | [address] | | | | + + + + + -+ | Absolute | 0.1Comment: Testing | 0 - 0.1 K/uL | EXTERNAL | | | Basophils | performed at [facility];[address] | | LAB | | | | [address];[place] | | | | | | [address] | | | | + + + + + -+ | Na | 139Comment: Testing | 135 - 143 | EXTERNAL | | | | performed at [facility];888 | mmol/L | LAB | | | | [address];[place] | | | | | | [address] | | | | + + + + + -+ | K | 3.7Comment: Testing | 3.5 - 4.9 | EXTERNAL | | | | performed at [facility];888 | mmol/L | LAB | | | | [address];[place] | | | | | | [address] | | | | + + + + + -+ | Cl | 104Comment: Testing | 99 - 109 mmol/L | EXTERNAL | | | | performed at [facility];[address] | | LAB | | | | [address];[place] | | | | | | [address] | | | | + + + + + -+ | CO2 | 30Comment: Testing | 23 - 32 mmol/L | EXTERNAL | | | | performed at [facility];[address] | | LAB | | | | [address];[place] | | | | | | [address] | | | | + + + + + -+ | Anion Gap | 9Comment: Testing | 5 - 20 mmol/L | EXTERNAL | | | | performed at [facility];[address] | | LAB | | | | [address];[place] | | | | | | [address] | | | | + + + + + -+ | Glucose, | 263 (H)Comment: Testing | 65 - 99 mg/dL | EXTERNAL | | | Fasting | performed at [facility];[address] | | LAB | | | | [address];[place] | | | | | | [address] | | | | + + + + + -+ | BUN | 20Comment: Testing | 8 - 25 mg/dL | EXTERNAL | | | | performed at [facility];[address] | | LAB | | | | [address];[place] | | | | | | [address] | | | | + + + + + -+ | Creatinine | 1.12Comment: Testing | 0.70 - 1.30 | EXTERNAL | | | | performed at [facility];888 | mg/dL | LAB | | | | [address];[place] | | | | | | [address] | | | | + + + + + -+ | BUN/Creatin | 18Comment: Testing | | EXTERNAL | | | ine Ratio | performed at [facility];[address] | | LAB | | | | [address];[place] | | | | | | [address] | | | | + + + + + -+ | Calcium | 9.1Comment: Testing | 8.5 - 10.2 | EXTERNAL | | | | performed at [facility];888 | mg/dL | LAB | | | | [address];[place] | | | | | | [address] | | | | + + + + + -+ | Protein, | 7.0Comment: Testing | 6.3 - 8.2 g/dL | EXTERNAL | | | Total | performed at [facility];[address] | | LAB | | | | [address];[place] | | | | | | [address] | | | | + + + + + -+ | Albumin | 3.2 (L)Comment: Testing | 3.6 - 5.0 g/dL | EXTERNAL | | | | performed at [facility];[address] | | LAB | | | | [address];[place] | | | | | | [address] | | | | + + + + + -+ | Globulin | 3.9Comment: Testing | 1.3 - 4.9 g/dL | EXTERNAL | | | | performed at [facility];[address] | | LAB | | | | [address];[place] | | | | | | [address] | | | | + + + + + -+ | A/G Ratio | 0.8 (L)Comment: Testing | 1.0 - 2.4 | EXTERNAL | | | | performed at [facility];[address] | | LAB | | | | [address];[place] | | | | | | [address] | | | | + + + + + -+ | Bilirubin | 0.2Comment: Testing | 0.1 - 1.5 mg/dL | EXTERNAL | | | Total | performed at [facility];[address] | | LAB | | | | [address];[place] | | | | | | [address] | | | | + + + + + -+ | ALP, | 85Comment: Testing | 35 - 115 U/L | EXTERNAL | | | External | performed at [facility];[address] | | LAB | | | | [address];[place] | | | | | | [address] | | | | + + + + + -+ | AST | 20Comment: Testing | 10 - 45 U/L | EXTERNAL | | | | performed at [facility];[address] | | LAB | | | | [address];[place] | | | | | | [address] | | | | + + + + + -+ | ALT | 23Comment: Testing | 10 - 65 U/L | EXTERNAL | | | | performed at [facility];[address] | | LAB | | | | [address];[place] | | | | | | [address] | | | | + + + [...] | | | | | | at [facility];[address];[place] [address] | | | | + + + + + -+ | CK, Total | 80Comment: Testing | 55 - 400 U/L | EXTERNAL | | | | performed at [facility];[address] | | LAB | | | | [address];[place] | | | | | | [address] | | | | + + + [...] | | | | | performed at [facility];[address] | | | | | | [address];[place] | | | | | | [address] | | | | + + + + + -+ | aPTT, | 22 (L)Comment: Testing | 23 - 32 seconds | EXTERNAL | | | Patient | performed at [facility];[address] | | LAB | | | | [address];[place] | | | | | | [address] | | | | + + + + + -+ | CK-MB | 2.1Comment: Testing | 0.5 - 3.6 ng/mL | EXTERNAL | | | | performed at [facility];[address] | | LAB | | | | [address];[place] | | | | | | [address] | | | | + + + + + -+ | CK-MB Index | 2.6Comment: CK INDEX | | EXTERNAL | | [...] + | Diagnosis | + + | Closed head injury, initial encounter | + + | Recurrent falls Personal history of fall | + + | Visual changes Unspecified visual disturbance | + + documented in this encounter
--- OUTSIDE RECORDS SUMMARY | ~2019-10-12 | XMS | Encounter Summary ---
Demographics + + + | Address | [address] | | | [place] [address] | + + + | Home Phone | | + + + | Preferred Language | Unknown | + + + | Marital Status | | + + + | Alevism Affiliation | 1027 | + + + | Race | White | + + + | Ethnic Group | Not or | + + + Author + + + | Author | [facility] | | | and [place] | + + + | Organization | [facility] | | | and [place] | + + + | Address | Unknown | + + + | Phone | Unavailable | + + + Support + + + + + | Name | Relationship | Address | Phone | + + + + + | Sammi Kohler | ECON | [place] [address] | | + + + + + Care Team Providers + +------+ + | Care Business Systems Analyst Name | Role | Phone | + +------+ + PCP | Unavailable | + +------+ + Encounter Details +--------+ + + + + | Date | Type | Department | Care Team | Description | +--------+ + + + + | 01/10/ | Emergency | [facility] | | RLQ abdominal pain; | | 2013 | | [facility] | | Constipation | | | | [facility] | | | | | | [address] | | | | | | [place] | | | | | | [address] | | | | | | [phone] | | | +--------+ + + + [...] ED Notes Conversion Transaction, Provider Unknown - 01/10/2014 11:08 AM PSTFormatting of this note m ight be different from the original. ED Notes by Yamileth Harvey RN at 01/10/141107 Author: Yamileth Harvey RN Service: (none) Author Type: Registered Nurse Filed: 01/10/141117 Date of Service: 01/10/141107 Status: Signed Stave Inspector: Yamileth Harvey RN (Registered Nurse) Pt assisted to restroom, assisted with changing from soiled depend into clean depend, luis fernando tasia with marilee-care, pt had large loose bowel movement and large urination. Yamileth Harvey RN 01/10/141117 onver ivana Transaction, Provider Unknown - 01/10/2014 10:32 AM PST ED Notes by Vadim Bernal RN at 01/10/14 103 Author: Vadim Bernal RN Service: (none) Author Type: Registered Nurse Filed: 01/10/141032 Date of Service: 01/10/141031 Status: Signed Stave Inspector: Vadim Bernal RN (Registered Nurse) Patient returned from imaging. Vadim Bernal RN 01/10/141032 onver ivana Transaction, Provider Unknown - 01/10/2014 9:53 AM PST ED Notes by Vadim Bernal RN at 01/10/14 09 Author: Vadim Bernal RN Service: (none) Author Type: Registered Nurse Filed: 01/10/14952 Date of Service: 01/10/14952 Status: Signed Stave Inspector: Vadim Bernal RN (Registered Nurse) Patient gowned, bed rails up x1, call light within reach. Plan of care discussed, care boar d updated. Vadim Bernal RN 01/10/14952 Norah Rivas MD - 01/10/2014 9:42 AM PSTFormatting of this note might be different from the or iginal. ED Provider Notes by Norah Barker MD at 01/10/14941 Author: Norah Barker MD Service: (none) Author Type: Physician Filed: 01/10/14 1058 Date of Service: 01/10/14941 Status: Signed Stave Inspector: Norah Barker MD (Physician) [facility] Department of Emergency Medicine History of Present Illness Patient Identification Norah Gr is a 58 y.o. male. Patient information was obtained from patient. History/Exam limitations: none. Patient presented to the Emergency Department Car Room:1102/1102 Chief Complaint Chief Complaint Patient presents with Recheck (Comments) recheck abdominal pain. "Its worse" 58 y.o. male with right lower quadrant abdominal pain since yesterday. Patient started hav ing sharp stabbing pain in his right lower quadrant yesterday. He felt nauseous but had no episodes of vomiting. Symptoms are aggravated by movement. He was seen in emergency depart ment yesterday and noted to have leukocytosis and an increased stool Gauthier. He was dischar ged home with stool softeners and told to return for recheck. Since going home and pain is worsened. He feels that these been having fevers and chills. Pain is more constant today t osorio it was yesterday. He is able to pass gas but has not had a bowel movement despite takin g her medications. No vomiting. Symptoms are described currently as moderate to severe. N o known alleviating factors. Primary Care Doctor: EDIN GUTIÉRREZ Past Medical History Diagnosis Date Diabetes [...] - CHOLECYSTECTOMY; Surgeon: Jevon Vargas DO; Location: [facility] MAIN OR; Service: General; Laterality: N/A; Abdominal surgery Cholecystectomy Skin cancer excision 10/10/2012 Procedure: EXCISION - SKIN CANCER; Surgeon: Sy Fierro MD; Location: [facility] MA[facility] OR ; Service: Plastics; Laterality: Left; upper arm and upper back w/frozen section Esophagogastroduodenoscopy 03/03/2013 Procedure: ESOPHAGOGASTRODUODENOSCOPY; Surgeon: Howie Gibson MD; Location: [facility] ENDOSCOPY; S ervice: Gastroenterology; Laterality: N/A; Colonoscopy 03/04/2013 Procedure: COLONOSCOPY; Surgeon: Howie Gibson MD; Location: [facility] ENDOSCOPY; Service: Gastroe nterology; Laterality: N/A; Upper gastrointestinal endoscopy Skin biopsy Hernia repair 07/03/2013 Procedure: LAPAROSCOPIC - HERNIA - INCISIONAL; Surgeon: Jevon Vargas DO; Location: [facility] OR; Service: General; Laterality: N/A; Prior to Admission medications Medication Sig Start Date End Date Taking? Authorizing Provider Albuterol Sulfate (VENTOLIN HFA IN) Inhale 2 puffs into the lungs as needed. Historical Provider Sptei-L-Mjvzfrwmhbpml (BEANO) TABS Take 150 Units by mouth [...] 100 mg by mouth nightly. Historical Provider hopadpslw-grnjtfqg-abqnblmxt hydroxide-simethicone Take 40 mLs by mouth daily [...] mg by mouth nightly. T Historical Provider Mometasone Furo-Formoterol Fum (DULERA) 100-5 [...] B12 Rash History Social History Marital Status: Spouse Name: [...] on file Social History Narrative Lives in [place], [place], full code Family History Problem Relation Age of Onset Heart disease Father Heart disease Sister Diabetes type II Sister Heart Problems Brother Review of Systems Positive for: Right lower quadrant abdominal pain , constipation, nausea, subjective fevers and chills No vomiting. No vision changes, difficulty breathing. No headache, chest pain, weakness or rash. No difficulty with urination. No other complaints. See HPI for further relevant details. All systems otherwise negative, except as recorded above and as recorded in the HPI. Physical Exam Filed Vitals: 01/10/14 0951 BP: 136/68 Pulse: 83 Temp: 98 F (36.7 C) Resp: 16 SpO2: 94% INTERPRETATION OF VITALS Pulse Oximetry interpretation: Normal Otherwise normal PHYSICAL EXAM Appearance: Alert. No acute distress. Head: Normal external exam. Eyes: EOMI, PERRL, no scleral icterus. ENT: Normal external ENT inspection. Neck: Supple. FROM. CVS: Normal heart rate and rhythm. Heart sounds normal. Pulses normal. Respiratory: No respiratory distress. No wheezing, rales, or rhonchi. Abdomen: Soft with right lower quadrant tenderness. Obese. Ventral hernia. Normal bowel sounds. No rebound or guarding. Genitourinary: Declined. Back: Moves without difficulty. Skin: Skin warm and dry. Extremities: No deformity. Neuro: Moves all extremities. No gross deficit. Medical Decision Making and Emergency Department Course ED Department Course: 9:42 AM Norah Gr is a 58 y.o. male who presents with a chief complaint of right lower quadrant abdominal pain. Differential diagnosis includes constipation, obstipation, appendicitis, m esenteric adenitis, other. After discussing diagnostic and therapeutic options with patient will repeat blood work and obtain a CT scan of abdomen and pelvis.. 10:46 AM Laboratory studies are improved compared to yesterday. CT shows a normal appendix and no o ther obvious right lower quadrant pathology. Patient is resting comfortably with no treatme nt here. He states his pain is better. At this time I feel he is stable for outpatient man agement. We will start him on GoLYTELY at home to help expedite a decrease in his stool bur den.Typical anticipatory guidelines and strict return to Emergency Department precautions kelley ve been given. All involved are understanding of and in agreement with this plan. All questi ons have been addressed to the best of my ability. Records Reviewed Old medical records. Nursing notes. Previous radiology studies. Laboratory Evaluation Results Procedure Component Value Ref Range Date/Time CBC with differential [[id number]] (Abnormal) Collected: 01/10/14 0950 Order Status: Completed Updated: 01/10/14 1042 Specimen Information: Blood WBC 9.2 3.8 - 11.0 K/uL RBC 4.79 4.20 - 5.70 M/uL HGB 12.6 (L) 13.2 - 17.0 g/dL HCT 38.3 (L) 39.0 - 50.0 % MCV 80.1 80.0 - 100.0 fl MCH 26.3 (L) 27.0 - 34.0 pg MCHC 32.8 32.0 - 35.5 g/dL RDW SD 42.0 37 - 53 fl PLT 274 150 - 400 K/uL MPV 7.9 fl DIFF TYPE AUTOMATED NEUTROPHILS 61.5 % LYMPHOCYTES 26.9 % MONOCYTES 9.6 % EOSINOPHILS 1.0 % BASOPHILS 1.0 % NEUTROPHILS ABS 5.7 1.9 - 7.4 K/uL LYMPHOCYTES ABS 2.5 1.0 - 3.9 K/uL MONOCYTES ABS 0.9 (H) 0 - 0.8 K/uL EOSINOPHILS ABS 0.1 0 - 0.5 K/uL BASOPHILS ABS 0.1 0 - 0.1 K/uL Comprehensive metabolic panel [[id number]] (Abnormal) Collected: 01/10/1450 Order Status: Completed Updated: 01/10/14 1026 Specimen Information: Blood SODIUM 139 135 - 143 mmol/L POTASSIUM 4.0 3.5 - 4.9 mmol/L CHLORIDE 104 99 - 109 mmol/L CO2 29 23 - 32 mmol/L ANION GAP AGAP 10 5 - 20 mmol/L GLUCOSE 181 (H) 65 - 99 mg/dL BUN 23 8 - 25 mg/dL CREATININE 1.44 (H) 0.70 - 1.30 mg/dL BUN/CREAT 16 CALCIUM 9.0 8.5 - 10.2 mg/dL TOTAL PROTEIN 7.3 6.3 - 8.2 g/dL Albumin 3.6 3.6 - 5.0 g/dL GLOBULIN 3.7 1.3 - 4.9 g/dL A/G 1.0 1.0 - 2.4 TBIL 0.3 0.1 - 1.5 mg/dL ALK PHOS 88 35 - 115 U/L AST 16 10 - 45 U/L ALT 24 10 - 65 U/L EGFR 53 (L) >60 mL/min/1.73m2 C-reactive protein [[id number]] (Abnormal) Collected: 01/10/1450 Order Status: Completed Updated: 01/10/14 1026 Specimen Information: Blood CRP 1.2 (H) <0.5 mg/dL Lipase [[id number]] Collected: 01/10/14949 Order Status: Completed Updated: 01/10/14 1026 Specimen Information: Blood LIPASE 76 73 - 393 U/L Amylase [[id number]] (Abnormal) Collected: 01/10/14949 Order Status: Completed Updated: 01/10/14 1026 Specimen Information: Blood AMYLASE 23 (L) 25 - 115 U/L Lab Interpretation I have reviewed lab results from the emergency department workup and abnormal results have been posted to the chart. Pertinent positive and negative findings have been addressed appr opriately. Radiology and EKG Evaluation Imaging Results CT Appendicitis Protocol (Final result) Result time: 01/10/14 10:31:56 Final result by Rad Results In Richard (01/10/14 10:31:56) Impression: 1. Normal appearance of the appendix. No etiology to explain right lower quadrant pain. 2. Stable right renal cyst. Narrative: NORAH Emre SIMÓN 1955 [address] PELVIS APPY WO CONTRAST 01/10/2014 10:26 AM INDICATION: Abdominal pain COMPARISON: 06/05/13 TECHNIQUE: CT scan of the pelvis without IV contrast. CT appendicitis protocol. 2 mm thick helically acquired axial images were obtained following rectal administration of contrast. C oronal reconstructed images are obtained. FINDINGS: The visualized kidneys have a reniform contour. There is a small exophytic cyst i nvolving the lower pole of the right kidney. This is stable from the prior exam. There is no hydronephrosis. No perinephric stranding is present. Visualized portions of the liver, sple en and pancreas are also normal in appearance. The prostate and seminal vesicles are normal in appearance. There is no pelvic adenopathy. There is no focal bowel wall thickening. The visualized appendix is opacified with contrast. No inflammation is present around the appendix. Mild weakening of the anterior abdominal wa ll is demonstrated however, no hernia is present. There is no evidence of diverticulitis. There is no mesenteric or retroperitoneal lymphaden opathy. There is no widening of the symphysis pubis. 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 There is mild osteoarthritic spurring of the bilateral sacroiliac amber int. ED Diagnoses Final diagnoses RLQ abdominal pain Constipation Disposition: ED Disposition Orders Discharge Condition at discharge: Stable Follow-up Information None Discharge Medications: New Prescriptions No new medications This document has been prepared with a voice recognition system. The possibility of "sound alike" civil division deputy sheriff errors, addition and/or deletions may occur. If there is any question p lekevin contact the author of the document. Procedures Additional Documentation Procedures Norah Barker MD 01/10/14 1058 documented in this en counter Plan of Treatment +--------+ + + + + | Date | Type | Specialty | Care Team | Description | +--------+ + + + + | 10/16/ | Anti-coag | Anticoagulation | Brittany Zaragoza | | | 2020 | visit | | [address] | | | | | | [place], | | | | | | [place] [address] | | | | | | [phone] | | | | | | | | +--------+ + + + + documented as of this encounter Procedures + +--------+ + + + | Procedure Name | Priori | Date/Time | Associated Diagnosis | Comments | | | ty | | | | + +--------+ + + + | CT PELVIS WO | Routin | 01/10/2014 | | Results for this | | CONTRAST | e | 10:26 AM | | procedure are in the | | | | PST | | results section. | + +--------+ + + + | EXTERNAL LAB: CBC | Routin | 01/10/2014 | | Results for this | | | e | 9:50 AM | | procedure are in the | | | | PST | | results section. | + +--------+ + + + | C-REACTIVE PROTEIN | Routin | 01/10/2014 | | Results for this | | | e | 9:50 AM | | procedure are in the | | | | PST | | results section. | + +--------+ + + + | LIPASE | Routin | 01/10/2014 | | Results for this | | | e | 9:50 AM | | procedure are in the | | | | PST | | results section. | + +--------+ + + + | AMYLASE | Routin | 01/10/2014 | | Results for this | | | e | 9:50 AM | | procedure are in the | | | | PST | | results section. | + +--------+ + + + | COMPREHENSIVE | Routin | 01/10/2014 | | Results for this | | METABOLIC PANEL | e | 9:50 AM | | procedure are in the | | | | PST | | results section. | + +--------+ + + + documented in this encounter Results CT Pelvis wo Contrast (01/10/2014 10:26 AM PST) + + | Specimen | + + | | + + + + + | Impressions | Performed At | + + + | 1. Normal appearance of the appendix. No etiology to explain right | | | lower quadrant pain. 2. Stable right renal cyst. | | | | | + + + + + + | Narrative | Performed At | + + + | NORAH GR 1955 CT PELVIS APPY WO CONTRAST 01/10/2014 | | | 10:26 AM INDICATION: Abdominal pain COMPARISON: 06/05/13 | | | TECHNIQUE: CT scan of the pelvis without IV contrast. CT appendicitis | | | protocol. 2 mm thick helically acquired axial images were obtained | | | following rectal administration of contrast. Coronal reconstructed | | | images are obtained. FINDINGS: The visualized kidneys have a | | | reniform contour. There is a small exophytic cyst involving the lower | | | pole of the right kidney. This is stable from the prior exam. There is | | | no hydronephrosis. No perinephric stranding is present. Visualized | | | portions of the liver, spleen and pancreas are also normal in | | | appearance. The prostate and seminal vesicles are normal in | | | appearance. There is no pelvic adenopathy. There is no focal bowel | | | wall thickening. The visualized appendix is opacified with contrast. | | | No inflammation is present around the appendix. Mild weakening of the | | | anterior abdominal wall is demonstrated however, no hernia is | | | present. There is no evidence of diverticulitis. There is no | | | mesenteric or retroperitoneal lymphadenopathy. There is no widening of | | | the symphysis pubis. Moderate osteoarthritis of the bilateral hip | | | joint is present. There is mild osteoarthritic spurring of the | | | bilateral sacroiliac joint. | | + + + + + | Procedure Note | + + | Richard, Rad Conversion - 09/21/2018 3:31 PM SHALONDA [id number] PELVIS APPY | | WO YNTBXBQQ49/5/2014 10:26 AM INDICATION: Abdominal pain COMPARISON: 06/05/13 TECHNIQUE: | | CT scan of the pelvis without IV contrast. CT appendicitis protocol. 2 mm thick | | helically acquired axial images were obtained following rectal administration of | | contrast. Coronal reconstructed images are obtained. FINDINGS: The visualized kidneys | | have a reniform contour. There is a small exophytic cyst involving the lower pole of the | | right kidney. This is stable from the prior exam. There is no hydronephrosis. No | | perinephric stranding is present. Visualized portions of the liver, spleen and pancreas | | are also normal in appearance. The prostate and seminal vesicles are normal in | | appearance. There is no pelvic adenopathy. There is no focal bowel wall thickening. The | | visualized appendix is opacified with contrast. No inflammation is present around the | | appendix. Mild weakening of the anterior abdominal wall is demonstrated however, no | | hernia is present. There is no evidence of diverticulitis. There is no mesenteric or | | retroperitoneal lymphadenopathy. There is no widening of the symphysis pubis. Moderate | | osteoarthritis of the bilateral hip joint is present. There is mild osteoarthritic | | spurring of the bilateral sacroiliac joint. IMPRESSION: 1. Normal appearance of the | | appendix. No etiology to explain right lower quadrant pain.2. Stable right renal cyst. | | | |There is no evidence of diverticulitis. There is no mesenteric or retroperitoneal lymphaden opathy. There is no widening of the symphysis pubis. 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 There is mild osteoarthritic spurring of the | |bilateral sacroiliac joint. | | | |IMPRESSION: | |1. Normal appearance of the appendix. No etiology to explain right lower quadrant pain. | |2. Stable right renal cyst. | | | | | + + External Lab: CBC (01/10/2014 9:50 AM PST) + + + + + + | Component | Value | Ref Range | Performed | Pathologist | | | | | At | Signature | + + + + + + | WBC | 9.2Comment: Testing | 3.8 - 11.0 K/uL | EXTERNAL | | | | performed at [facility];[address] | | LAB | | | | [address];[place] | | | | | | [address] | | | | + + + + + + | Non- | 4.79Comment: Testing | 4.20 - 5.70 | EXTERNAL | | | Red Blood | performed at [facility];[address] | M/uL | LAB | | | Cells | [address];[place] | | | | | Counted | [id number] | | | | + + + + + + | Hemoglobin | 12.6 (L)Comment: Testing | 13.2 - 17.0 | EXTERNAL | | | | performed at [facility];[address] | g/dL | LAB | | | | [address];[place] | | | | | | [address] | | | | + + + + + + | Hematocrit, | 38.3 (L)Comment: Testing | 39.0 - 50.0 % | EXTERNAL | | | POC | performed at [facility];[address] | | LAB | | | | [address];[place] | | | | | | [address] | | | | + + + + + + | MCV | 80.1Comment: Testing | 80.0 - 100.0 fl | EXTERNAL | | | | performed at [facility];[address] | | LAB | | | | [address];[place] | | | | | | [address] | | | | + + + + + + | MCH | 26.3 (L)Comment: Testing | 27.0 - 34.0 pg | EXTERNAL | | | | performed at [facility];[address] | | LAB | | | | [address];[place] | | | | | | [address] | | | | + + + + + + | MCHC | 32.8Comment: Testing | 32.0 - 35.5 | EXTERNAL | | | | performed at [facility];[address] | g/dL | LAB | | | | [address];[place] | | | | | | [address] | | | | + + + + + + | RDW-CV | 42.0Comment: Testing | 37 - 53 fl | EXTERNAL | | | | performed at [facility];[address] | | LAB | | | | [address];[place] | | | | | | [address] | | | | + + + + + + | Platelet | 274Comment: Testing | 150 - 400 K/uL | EXTERNAL | | | Count | performed at [facility];[address] | | LAB | | | Plasma | [address];[place] | | | | | | [address] | | | | + + + + + + | MPV | 7.9Comment: Testing | fl | EXTERNAL | | | | performed at [facility];[address] | | LAB | | | | [address];[place] | | | | | | [address] | | | | + + + + + + | Differentia | AUTOMATEDComment: | | EXTERNAL | | | l Type | Testing performed at | | LAB | | | | [facility];[address];[place] [address] | | | | + + + + + + | % Segmented | 61.5Comment: Testing | % | EXTERNAL | | | | performed at [facility];[address] | | LAB | | | Neutrophils | [address];[place] | | | | | | [address] | | | | + + + + + + | % | 26.9Comment: Testing | % | EXTERNAL | | | Lymphocytes | performed at [facility];[address] | | LAB | | | | [address];[place] | | | | | | [address] | | | | + + + + + + | % Monocytes | 9.6Comment: Testing | % | EXTERNAL | | | | performed at [facility];[address] | | LAB | | | | [address];[place] | | | | | | [address] | | | | + + + + + + | % | 1.0Comment: Testing | % | EXTERNAL | | | Eosinophils | performed at [facility];[address] | | LAB | | | | [address];[place] | | | | | | [address] | | | | + + + + + + | % Basophils | 1.0Comment: Testing | % | EXTERNAL | | | | performed at [facility];[address] | | LAB | | | | [address];[place] | | | | | | [address] | | | | + + + + + + | Absolute | 5.7Comment: Testing | 1.9 - 7.4 K/uL | EXTERNAL | | | Segmented | performed at [facility];[address] | | LAB | | | Neutrophils | [address];[place] | | | | | | [address] | | | | + + + + + + | Absolute | 2.5Comment: Testing | 1.0 - 3.9 K/uL | EXTERNAL | | | Lymphocytes | performed at [facility];[address] | | LAB | | | | [address];[place] | | | | | | [address] | | | | + + + + + + | Absolute | 0.9 (H)Comment: Testing | 0 - 0.8 K/uL | EXTERNAL | | | Monocytes | performed at [facility];[address] | | LAB | | | | [address];[place] | | | | | | [address] | | | | + + + + + + | Absolute | 0.1Comment: Testing | 0 - 0.5 K/uL | EXTERNAL | | | Eosinophils | performed at [facility];[address] | | LAB | | | | [address];[place] | | | | | | [address] | | | | + + + + + + | Absolute | 0.1Comment: Testing | 0 - 0.1 K/uL | EXTERNAL | | | Basophils | performed at [facility];[address] | | LAB | | | | [address];[place] | | | | | | [address] | | | | + + + + + + + + | Specimen | + + | Blood specimen | | (specimen) | + + + +---------+ + + | Performing | Address | City/State/Zipcode | Phone Number | | Organization | | | | + +---------+ + + | EXTERNAL LAB | | | | + +---------+ + + C-Reactive Protein (01/10/2014 9:50 AM PST) + + + + + + | Component | Value | Ref Range | Performed | Pathologist | | | | | At | Signature | + + + + + + | CRP | 1.2 (H)Comment: Testing | mg/dL | EXTERNAL | | | | performed at [facility];[address] | | LAB | | | | [address];[place] | | | | | | [address] | | | | + + + + + + + + | Specimen | + + | Blood specimen | | (specimen) | + + + +---------+ + + | Performing | Address | City/State/Zipcode | Phone Number | | Organization | | | | + +---------+ + + | EXTERNAL LAB | | | | + +---------+ + + Lipase (01/10/2014 9:50 AM PST) + + + + + + | Component | Value | Ref Range | Performed | Pathologist | | | | | At | Signature | + + + + + + | Lipase | 76Comment: Testing | 73 - 393 U/L | EXTERNAL | | | | performed at [facility];[address] | | LAB | | | | [address];[place], [place] | | | | | | [address] | | | | + + + + + + + + | Specimen | + + | Blood specimen | | (specimen) | + + + +---------+ + + | Performing | Address | City/State/Zipcode | Phone Number | | Organization | | | | + +---------+ + + | EXTERNAL LAB | | | | + +---------+ + + Amylase (01/10/2014 9:50 AM PST) + + + + + + | Component | Value | Ref Range | Performed | Pathologist | | | | | At | Signature | + + + + + + | Amylase | 23 (L)Comment: Testing | 25 - 115 U/L | EXTERNAL | | | | performed at [facility];[address] | | LAB | | | | [address];[place] | | | | | | [address] | | | | + + + [...] + +---------+ + + Comprehensive Metabolic Panel (01/10/2014 9:50 AM PST) + + + + + + | Component | Value | Ref Range | Performed | Pathologist | | | | | At | Signature | + + + + + + | Na | 139Comment: Testing | 135 - 143 | EXTERNAL | | | | performed at [facility];888 | mmol/L | LAB | | | | [address];[place] | | | | | | [address] | | | | + + + + + + | K | 4.0Comment: Testing | 3.5 - 4.9 | EXTERNAL | | | | performed at [facility];888 | mmol/L | LAB | | | | [address];[place] | | | | | | [address] | | | | + + + + + + | Cl | 104Comment: Testing | 99 - 109 mmol/L | EXTERNAL | | | | performed at [facility];[address] | | LAB | | | | [address];[place] | | | | | | [address] | | | | + + + + + + | CO2 | 29Comment: Testing | 23 - 32 mmol/L | EXTERNAL | | | | performed at [facility];[address] | | LAB | | | | [address];[place] | | | | | | [address] | | | | + + + + + + | Anion Gap | 10Comment: Testing | 5 - 20 mmol/L | EXTERNAL | | | | performed at [facility];[address] | | LAB | | | | [address];[place] | | | | | | [address] | | | | + + + + + + | Glucose, | 181 (H)Comment: Testing | 65 - 99 mg/dL | EXTERNAL | | | Fasting | performed at [facility];[address] | | LAB | | | | [address];[place] | | | | | | [address] | | | | + + + + + + | BUN | 23Comment: Testing | 8 - 25 mg/dL | EXTERNAL | | | | performed at [facility];[address] | | LAB | | | | [address];[place] | | | | | | [address] | | | | + + + + + + | Creatinine | 1.44 (H)Comment: Testing | 0.70 - 1.30 | EXTERNAL | | | | performed at [facility];888 | mg/dL | LAB | | | | [address];[place] | | | | | | [address] | | | | + + + + + + | BUN/Creatin | 16Comment: Testing | | EXTERNAL | | | ine Ratio | performed at [facility];[address] | | LAB | | | | [address];[place] | | | | | | [address] | | | | + + + + + + | Calcium | 9.0Comment: Testing | 8.5 - 10.2 | EXTERNAL | | | | performed at [facility];888 | mg/dL | LAB | | | | [address];[place] | | | | | | [address] | | | | + + + + + + | Protein, | 7.3Comment: Testing | 6.3 - 8.2 g/dL | EXTERNAL | | | Total | performed at [facility];[address] | | LAB | | | | [address];[place] | | | | | | [address] | | | | + + + + + + | Albumin | 3.6Comment: Testing | 3.6 - 5.0 g/dL | EXTERNAL | | | | performed at [facility];[address] | | LAB | | | | [address];[place] | | | | | | [address] | | | | + + + + + + | Globulin | 3.7Comment: Testing | 1.3 - 4.9 g/dL | EXTERNAL | | | | performed at [facility];[address] | | LAB | | | | [address];[place] | | | | | | [address] | | | | + + + + + + | A/G Ratio | 1.0Comment: Testing | 1.0 - 2.4 | EXTERNAL | | | | performed at [facility];[address] | | LAB | | | | [address];[place] | | | | | | [address] | | | | + + + + + + | Bilirubin | 0.3Comment: Testing | 0.1 - 1.5 mg/dL | EXTERNAL | | | Total | performed at [facility];[address] | | LAB | | | | [address];[place] | | | | | | [address] | | | | + + + + + + | ALP, | 88Comment: Testing | 35 - 115 U/L | EXTERNAL | | | External | performed at [facility];[address] | | LAB | | | | [address];[place] | | | | | | [address] | | | | + + + + + + | AST | 16Comment: Testing | 10 - 45 U/L | EXTERNAL | | | | performed at [facility];[address] | | LAB | | | | [address];[place] | | | | | | [address] | | | | + + + + + + | ALT | 24Comment: Testing | 10 - 65 U/L | EXTERNAL | | | | performed at [facility];[address] | | LAB | | | | [address];[place] | | | | | | [address] | | | | + + + + + + | Estimated | 53 (L)Comment: GFR <60: | mL/min/1.73m2 | EXTERNAL | [...] | | | | | | at [facility];[address] | | | | | | [address];[place] [address] | | | | + + + [...] + | Diagnosis | + + | RLQ abdominal pain Abdominal pain, right lower quadrant | + + | Constipation Unspecified constipation | + + documented in this encounter
--- OUTSIDE RECORDS SUMMARY | ~2019-10-12 | XMS | Encounter Summary ---
Demographics + + + | Address | [address] | | | [place] [address] | + + + | Home Phone | | + + + | Preferred Language | Unknown | + + + | Marital Status | | + + + | Presybeterian Affiliation | 1027 | + + + | Race | White | + + + | Ethnic Group | Not or | + + + Author + + + | Author | [facility]erged With [facility] | | | and [place] | + + + | Organization | [facility]erg[facility] | | | and [place] | + + + | Address | Unknown | + + + | Phone | Unavailable | + + + Support + + + + + | Name | Relationship | Address | Phone | + + + + + | Sammi Kohler | ECON | [place] [address] | | + + + + + Care Team Providers + +------+ + | Care Residential Service Technician Name | Role | Phone | + +------+ + | Mireya Pack NP | PCP | | + +------+ + Reason for Visit + + + | Reason | Comments | + + + | Constipation | | + + + | Hypertension | | | (Asymptomatic) | | + + + | Elevated Blood Sugar | | | (Asymptomatic) | | + + + Encounter Details +--------+ + + + + | Date | Type | Department | Care Team | Description | +--------+ + + + + | 11/15/ | Emergency | [facility] | Bimal Ramirez, | Slow transit | | 2019 | | MEDICAL CENTER | [address] | [facility] | | | | EMERGENCY CENTER | [place], [place] | (Primary Dx); | | | | [address] | [address] | Elevated blood | | | | [place], [place] | | pressure reading; | | | | [address] | | Acute hyperglycemia | | | | [phone] | | | +--------+ + + + [...] + + + | Blood Pressure | 171/86 | 11/15/2018 12:28 PM | | | | | PDT | | + + + + + | Pulse | 64 | 11/15/2018 12:28 PM | | | | | PDT | | + + + + + | Temperature | 36.5 C (97.7 F) | 11/15/2018 12:28 PM | | | | | PDT | | + + + + + | Respiratory Rate | 16 | 11/15/2018 12:28 PM | | | | | PDT | | + + + + + | Oxygen Saturation | 96% | 11/15/2018 12:28 PM | | | | | PDT | | + + + + + | Inhaled Oxygen | - | - | | | Concentration | | | | + + + + + | Weight | 97 kg (213 lb 13.5 | 11/15/2018 10:53 AM | | | | oz) | PDT | | + + + + + | Height | 180.3 cm (5' 11") | 11/15/2018 10:53 AM | | | | | PDT | | + + + + + | Body Mass Index | 29.83 | 11/15/2018 10:53 AM | | | | | PDT [...] following attachments cannot be sent through Care Everywhere.Blood Sugar, Arnulfo fleming to Check Your (Citizen [place])Checking Your Blood Sugar, Tekr-nj-Heea (Citizen [place])Constipation, Martha johnson (Citizen [place])documented in this encounter Medications at Time of [...] + + + +---------+ + + | aspirin 81 MG | Take 1 tablet by | 30 | 4 | 11/08/19 | | | tablet | mouth Daily. | tablet | | 19 | 9 | + + + +---------+ + + [...] + + + +---------+ + + | fenofibrate 160 mg | Take 1 tablet by | 30 | 4 | 11/08/19 | | | tablet | mouth Daily. | tablet | | 19 | 9 | + + + +---------+ + + [...] Inject 45 Units | 12 mL | 0 | 11/02/19 | | | (LEVEMIR FLEXTOUCH) | under the skin | | | 19 | 9 | | 100 units/mL | nightly. | | | | | | injection (pen) | | | | | | + + + +---------+ + + | insulin lispro | Inject 5 Units under | 15 mL | 0 | 11/08/19 | | | (HUMALOG KWIKPEN) | the skin 3 times | | | 19 | 9 | | 100 units/mL | daily (before | | | | | | injection | meals). Plus sliding | | | | | | (pen)Indications: | scale | | | | | | Type [...] + + + +---------+ + + | Low Bello. MISC | For blood sugar | 200 | 11 | 11/02/19 | | | | checks 4 times daily | each | | 19 | 9 | + + + +---------+ + + [...] + + + +---------+ + + | polyethylene | Take 17 g by mouth 2 | 500 g | 0 | 11/16/19 | | | glycol (MIRALAX) | times daily for 10 | | | 19 | 9 | | powder | days. Mix into 4-8 | | | | | | | oz of juice or | | | | | | | water. | | | | | + + + +---------+ + + | pravastatin | Take 1 tablet by | 30 | 4 | 11/08/19 | | | (PRAVACHOL) 80 MG | mouth nightly. | tablet | | 19 | 9 | | tablet | | | | | | + + + +---------+ + + | tamsulosin | Take 1 capsule by | 60 | 4 | 11/08/19 | | | (FLOMAX) 0.4 mg CAPS | mouth 2 times daily. | capsule | | 19 | 0 | + + + +---------+ + + documented as of this encounter ED Notes Tesfaye Beckett RN - 11/15/2018 12:11 PM PDTPt sleeping soundly in room. Bimal Quesada MD - 11/15/2018 1 1:27 AM PDT [facility] Department of Emergency Medicine Norah Gr Emergency Department Encounter Note PCP:Mireya Pack NP DIAGNOSIS: ICD-10-CM ICD-9-CM 1. Slow transit constipation K59.01 564.01 2. Elevated blood pressure reading R03.0 796.2 3. Acute hyperglycemia R73.9 790.29 FINAL IMPRESSION ICD-10-CM ICD-9-CM 1. Slow transit constipation K59.01 564.01 2. Elevated blood pressure reading R03.0 796.2 3. Acute hyperglycemia R73.9 790.29 Follow-up Information Mireya Pack NP. Specialty: Nurse Practitioner - Primary Care Why: Please call today to arrange follow-up in the next 5-7 days for your ED visit Contact information: [address] [facility] [address] [facility]. Specialty: Emergency Medicine Why: As needed Contact information: [address] [facility] [address] Discharge Medication List as of 11/15/2018 13:15 START taking these medications Details polyethylene glycol (MIRALAX) powder Take 17 g by mouth 2 times daily for 10 days. Mix into 4-8 oz of juice or water.Disp-500 g, R-0, Print MEDICAL DECISION MAKING: After my interview and examination and review of the patients past medical history, past haynes rgical history and social history I feel that the partial list of possible emergent diagnose s requires an evaluation which includes consideration of constipation, pneumonia, atypical b owel obstruction, vs other CHIEF COMPLAINT: Chief Complaint Patient presents with Constipation Hypertension (Asymptomatic) Elevated Blood Sugar (Asymptomatic) ED Room: [id number]/[id number] HPI Norah Gr is a 62 y.o. male who presents to the Emergency Department with complaints of c onstipation. Symptoms onset 5 days ago with a constant course since that time. Symptoms are reported to be of mild to moderate severity and described as "I'm really plugged up". The p atient reports that nothing exacerbates symptoms and nothing relieves symptoms. The patient reports he has felt constipated the last several days but states he did have a bowel movemen t on the way here (small amount). He reports he has been seen in the ED for similar symptoms in the past and required "it to be pulled out". The patient denies any chronic pain medicat ions but reports h/o an enlarged prostate and is currently awaiting urology referral. The cleopatra prabhakar also has a h/o stroke, TIA, A-fib, COPD, GIB, DVT, DM II, and others noted below. Zaira ent also complains of chills, hypertension, hyperglycemia. Denies fever, or any other sympto ms at this time. 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 PAST MEDICAL & SURGICAL HISTORY Past Medical History: Diagnosis Date Acute pulmonary [...] - CHOLECYSTECTOMY; Surgeon: Jevon Vargas DO; Location: [facility] MAIN OR; Service: General; Laterality: N/A; COLONOSCOPY COLONOSCOPY 03/04/2013 Procedure: COLONOSCOPY; Surgeon: Howie Gibson MD; Location: [facility] ENDOSCOPY; Service: Gastroen terology; Laterality: N/A; HERNIA REPAIR 07/03/2013 Procedure: LAPAROSCOPIC - HERNIA - INCISIONAL; Surgeon: Jevon Vargas DO; Location: [facility] MA[facility] OR; Service: General; Laterality: N/A; KNEE SURGERY rt knee, patella LEG SURGERY LLE OTHER SURGICAL HISTORY UNLISTED PROCEDURE ARTHROSCOPY OTHER SURGICAL HISTORY Left 05/05/2014 SKIN LESION EXCISION - Procedure: EXCISION - LESION - FROZEN SECTION; Surgeon: Sy murcia MD; Location: [facility] MAIN OR; Service: Plastics; Laterality: Left; forearm SKIN BIOPSY SKIN CANCER EXCISION Left 10/10/2012 Procedure: EXCISION - SKIN CANCER; Surgeon: Sy Fierro MD; Location: [facility] MA[facility] OR; Service: Plastics; Laterality: Left; upper arm and upper back w/frozen section UPPER GASTROINTESTINAL ENDOSCOPY UPPER GASTROINTESTINAL ENDOSCOPY 03/03/2013 Procedure: ESOPHAGOGASTRODUODENOSCOPY; Surgeon: Howie Gibson MD; Location: [facility] ENDOSCOPY; Se rvice: Gastroenterology; Laterality: N/A; CURRENT MEDICATIONS 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 apixaban (ELIQUIS) 5 mg tablet Take 1 tablet by mouth 2 times daily. ARIPiprazole (ABILIFY) 5 mg tablet Take 1 tablet by mouth Daily. aspirin 81 MG tablet Take 1 tablet by mouth Daily. Blood Glucose Monitoring Suppl (BLOOD GLUCOSE MONITOR SYSTEM) w/Device KIT Dispense bra nd per patient preference budesonide-formoterol (SYMBICORT) 160-4.5 mcg/puff inhaler Inhale 2 puffs into the lung s 2 times daily. carvedilol (COREG) 12.5 mg tablet Take 1 tablet by mouth 2 times daily (with breakfast & dinner). fenofibrate 160 mg tablet Take 1 tablet by mouth Daily. finasteride (PROSCAR) 5 mg tablet Take 1 tablet by mouth Daily. Glucose Blood (BLOOD GLUCOSE TEST STRIPS) STRP For blood sugar testing 4 times daily hydrALAZINE (APRESOLINE) 25 mg tablet Take 1 tablet by mouth 2 times daily. insulin detemir (LEVEMIR FLEXTOUCH) 100 units/mL injection (pen) Inject 45 Units under the skin nightly. insulin lispro (HUMALOG KWIKPEN) 100 units/mL injection (pen) Inject 5 Units under the skin 3 times daily (before meals). Plus sliding scale Insulin Pen Needle (BD PEN NEEDLE KYAW U/F) 32G X 4 MM MISC For insulin administration 4 times daily Lancets (ACCU-CHEK MULTICLIX) MISC 1 each by Other route 4 times daily. Lancets Misc. MISC For blood sugar checks 4 times daily lisinopril (PRINIVIL, ZESTRIL) 10 mg tablet Take 2 tablets by mouth Daily. metFORMIN (GLUCOPHAGE) 500 mg tablet Take 1 tablet by mouth 2 times daily (with breakfa st & dinner). NIFEdipine (ADALAT CC) 60 MG 24 hr tablet Take 1 tablet by mouth Daily. pravastatin (PRAVACHOL) 80 MG tablet Take 1 tablet by mouth nightly. tamsulosin (FLOMAX) 0.4 mg CAPS Take 1 capsule by mouth 2 times daily. ALLERGIES Allergies Allergen Reactions Nitroglycerin Swelling Tongue swelling Vitamin B12 Rash Rash FAMILY AND SOCIAL HISTORY Family History Problem Relation Age of Onset Heart disease Father Heart disease Sister Diabetes, NIDDM Sister Other (see comment) Brother Heart Problems Social History Socioeconomic History Marital status: Spouse name: Not on file Number of children: 1 Years of education: s. college Highest education level: Not on file Tobacco Use Smoking status: Never Smoker Smokeless tobacco: Never Used Substance and Sexual Activity Alcohol use: Yes Comment: Alcoholic Drinks/day: occassional Drug use: Never Comment: Drug use: No Social History Narrative Lives alone x 1 wk, moved from [facility], , 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 2 falls in the last 6 months. REVIEW OF SYSTEMS Constitutional: Negative for fever Positive for chills, hypertension, hyperglycemia Eyes: Negative for vision changes Nose: Negative for congestion, nosebleeds Throat: Negative for sore throat CV/Resp: Negative for chest pain, twaljtgfm-ld-hrrlyl, cough GI: Negative for abdominal pain, nausea, vomiting, or diarrhea Positive for constipation : Negative for urinary problems Musculoskeletal: Negative for back pain, joint pain Skin: Negative for rash Neuro/Psych: Negative for headache Endo/heme/Lymph: Negative for swollen lymph nodes, easy bruising PHYSICAL EXAM VITAL SIGNS: (first vital signs):Temp: 36.4 C (97.5 F) Pulse: 89 Resp: 16 SpO2: 98 % BP : (!) 201/98 Body mass index is 29.83 kg/m. General: Alert, no active distress and not requiring any emergent interventions Eyes: Normal inspection, pupils equal and round, non-icteric sclera ENT: Ears normal Nose normal Pharynx normal Neck: Normal inspection Cardiovascular: Normal rate and rhythm, no extra sounds Respiratory: No respiratory distress or wheezing Coarse breath sounds bilaterally Normal excursion Abdomen: Soft, non-tender, non-distended Normal active bowel sounds No rebound or guarding Back: Normal inspection Skin: Color normal Warm and dry Extremities: BARNARD Neuro: No gross motor/sensory deficit GCS 15 No cerebellar deficits Alert and oriented to person, place, time and situation. LABS Results Procedure Component Value Ref Range Date/Time POC Glucose [[id number]] (Abnormal) Collected: 11/15/18 1227 Order Status: Completed Updated: 11/15/18 1233 Glucose, POC 277 65 - 99 mg/dL IMAGING STUDIES (X-Rays interpreted by ED Physician) Recent Results (from the past 360 hour(s)) XR Abd Supine and Upright w 1 Vw Chest Narrative PA CHEST AND SUPINE AND UPRIGHT ABDOMEN CLINICAL INFORMATION: Constipation. COMPARISON: US ABDOMEN LIMITED (02/06/2018); CT ABDOMEN PELVIS W CONTRAST (02/25/2016); US KIDNEYS AND BLADDER (10/08/2014); FINDINGS: Chest Findings: No intraperitoneal free air. Heart, lungs and vessels normal. No adenopathy, pneumothorax or pleural effusion. There is mild degenerative disc disease of the thoracic spine. Abdomen Findings: Bowel gas pattern normal. No intraperitoneal free air. No plain film evidence of ascites or mass. No abnormal calcifications. There is mild osteoarthritis of the hip joint bilaterally. Cholecystectomy clips are seen in the right upper quadrant. Moderate stool burden is noted. Impression IMPRESSION: Negative acute abdomen series. No free air or obstruction. Signed by: Irina Ji, Kishan Sign Date/Time: 11/15/2018 12:22 PM ED COURSE Pertinent Labs & Imaging studies were reviewed along with EMS notes and assisted record s if applicable. (See chart for details) Medications and Allergy list reviewed. Nurses note and old records were reviewed 11:27 The patient was seen and examined, will provide Maalox to attempt to relieve constipa tion symptoms and obtain XR abd. 12:22 XR Abd shows no acute findings, no free air or obstruction 12:32 POC glucose is 277 13:10 Reassessed the patient. I have discussed my clinical impression and treatment plan wi th the pt. We have specifically discussed the signs and symptoms that would constitute the n eed for an immediate return to the ED, the importance of continued outpatient f/u and the im portance of compliance with the d/c instructions. I have answered any questions that the pt has to the best of my ability. Based upon the pt s history, physical exam, ED course, and diagnostic studies, I feel that there is no current emergent medical condition that warrants admission, transfer, or further ED treatment at this time. Last Set of Vital Signs: Temp: 36.5 C (97.7 F) Pulse: 64 Resp: 16 SpO2: 96 % BP: 171/86 Medications aluminum & magnesium hydroxide-simethicone (MAALOX PLUS REGULAR STRENGTH) 200-200-20 mg/5 m L 10 mL, lidocaine (XYLOCAINE) 2% 10 mL, WNXTyxmtbncuc-rzkgoonxyip-yaflotus-scopolamine (DON ) 10 mL liquid (30 mLs Oral Given 11/15/18 1140) lactulose liquid 30 mL (30 mLs Oral Given 11/15/18 1140) Vitals: 11/15/18 1053 11/15/18 1228 BP: (!) 201/98 171/86 Pulse: 89 64 Resp: 16 16 Temp: 36.4 C (97.5 F) 36.5 C (97.7 F) SpO2: 98% 96% Weight: 97 kg (213 lb 13.5 oz) Height: 1.803 m (5' 11") FINAL IMPRESSION ICD-10-CM ICD-9-CM 1. Slow transit constipation K59.01 564.01 2. Elevated blood pressure reading R03.0 796.2 3. Acute hyperglycemia R73.9 790.29 This document has been prepared with a voice recognition system. The possibility of "sound alike" manager of disaster recovery errors, addition and/or deletions may occur. If there is any question p pancho contact the author of the document. Bimal Ramirez DO Attending Provider Note: I, Bimal Ramirez MD personally performed the services describe d in this documentation, as scribed by Ariel Marrero in my presence, and it is both accurate and complete. Chart Reviewed and Completed. Scribe: I Kari Bailey, scribing for and in the presence of Bimal Ramirez MD. Completed by: Kari Bailey 11/15/2018 16:33 Bimal Ramirez MD 11/18/18 2016 Celio, Denis Banda N - 11/15/2018 11:25 AM PDTPt states has been constipated for 5 days. States did have small BM while coming to ED on bus. Pt also states blood sugar has been high though he isn't kylee cking his sugar and his BP has been high. Pt states was recently placed on medication for c onstipation but doesn't know the name of medication or any of his medications since they are all in bubble packs. Pt didn't bring medication with him. documented in this encounter Plan of Treatment +--------+ + + + + | Date | Type | Specialty | Care Team | Description | +--------+ + + + + | 10/16/ | Anti-coag | Anticoagulation | Leeladaniel Brittany | | | 2020 | visit | | [address] | | | | | | [place], | | | | | | [place] [address] | | | | | | [phone] | | | | | | | | +--------+ + + + + + +------+--------+ + + | Name | Type | Priori | Associated Diagnoses | Date/Time | | | | ty | | | + +------+--------+ + + | ED INFORMATION | COLTON | Routin | | 11/15/2018 10:53 AM | | EXCHANGE | | e | | PDT | + +------+--------+ + + documented as of this encounter Procedures + +--------+ + + + | Procedure Name | Priori | Date/Time | Associated Diagnosis | Comments | | | ty | | | | + +--------+ + + + | POC GLUCOSE (NON | Routin | 11/15/2018 | | Results for this | | ORD) | e | 12:27 PM | | procedure are in the | | | | PDT | | results section. | + +--------+ + + + | XR ABDOMEN AP | ESCOBAR | 11/15/2018 | | Results for this | | UPRIGHT KUB AND PA | | 11:55 AM | | procedure are in the | | CHEST | | PDT | | results section. | + +--------+ + + + | ED INFORMATION | Routin | 11/15/2018 | | | | EXCHANGE | e | 10:53 AM | | | | | | PDT | | | + +--------+ + + + +---+--------+ | | | | | Proced | | | ure | | | Note - | | | Richard, | | | Lab In | | | | | | Hlseve | | | n - | | | | | | 2019 | | | 10:54 | | | AM PDT | | [...] | | | FICATI | | | ON?10/ | | | | | | 9 | | | 10:52? | | | GR, | | | NORAH | | | | | | M?MRN: | | | | | | [id number] | | | [id number] | | | riteri | | | a Met | | | | | | Medica | | | id 5 | | | in 12 | | | 10 in | | | 12 3 | | | in | | | 60Secu | | | rity | | | and | | | Safety | | | No | | | recent | | | | | | Securi | | | ty | | | Events | | | | | | curren | | | tly on | | | | | | fileED | | | Care | | | Guidel | | | inesTh | | | ere | | | are | | | curren | | | tly no | | | ED | | | Care | | | Guidel | | | andrei | | | for | | | this | | | patien | | | t. | | | Please | | | check | | | your | | | facili | | | ty's | | | medica | | | l | | | record | | | s | | | system | | | .Presc | | | riptio | | | n Drug | | | | | | Report | | | [...] | | | Center | | | 9 0 | | | [facility] | | | s | | | Medica | | | l | | | Center | | | 14 0 | | | [place] | | | sd | | | Commun | | | ity | | | Hospit | | | al 1 0 | | | | | | [facility] | | | | | | [facility] | | | anding | | | ED 1 | | | 0 | | | Total | | | 27 0 | | | Note: | | [...] | | out | | | of 27 | | | in the | | [...] | | | int | | | Oct | | | [...] | | | c) | | | Sep 5, | | [...] | | | ) | | | Type 2 | | [...] | | | ified | | | Aug | | | 20, | | | 2019 | | | [facility] | | | [place] | | | idge | | | [place] | | | [place] | | | [place] | | | Emerge | | | ncy | | | -1. | | | Tachyc | | | ardia, | | | | | | unspec | | | ified | | | -1. | | | | | | Anxiet | | | y | | | disord | | | er, | | | unspec | | | ified | | | -1. | | | | | | Unspec | | | ified | | | atrial | | | | | | fibril | | | lation | | | 1. | | | Type | | | 2 | | | diabet | | | es | | | mellit | | | us | | | with | | | hyperg | | | lycemi | | | a | | | 5. | | | Long | | | term | | | (curre | | | nt) | | | use of | | | | | | insuli | | | n | | | 6. | | | Essent | | | ial | | | (prima | | | ry) | | | hypert | | | ension | | | Aug | | | 16, | | | 2019 | | | [facility] | | | | | | [facility] | | | al | | | [facility] | | | [place] | | | [place] | | | Emerge | | | ncy | | | Chest | | | Pain | | | | | | Essent | | | ial | | | (prima | | | ry) | | | hypert | | | ension | | | | | | Chest | | | pain, | | | unspec | | | ified | | | Aug | | | 13, | | | 2019 | | | [facility] | | | [facility] | | | [place] | | | [place] | | | Emerge | | | ncy | | | Chief | | | Compla | | | int: | | | SUGAR | | | LEVEL | | | Aug | | | 11, | | | 2019 | | | [facility] | | | | | | Region | | | al | | | [facility] | | | [place] | | | [place] | | | Emerge | | | ncy | | | Chest | | | Pain | | | | | | Shortn | | | ess of | | | | | | Breath | | | | | | Other | | | chest | | | pain | | | Type | | | 2 | | | diabet | | | es | | | mellit | | | us | | | with | | | hyperg | | | lycemi | | | a Aug | | | 8, | | | 2019 | | | [facility] | | | | | | Region | | | al | | | [facility] | | | [place] | | | [place] | | | Emerge | | | ncy | | | | | | Diarrh | | | ea | | | Chest | | | Pain | | | | | | Essent | | | ial | | | (prima | | | ry) | | | hypert | | | ension | | | | | | Unspec | | | ified | | | atrial | | | | | | fibril | | | lation | | | | | | Type [...] | | insuli | | | n Rocco | | | 22, | | | 2019 | | | [facility] | | | [facility] | | | [place] | | | [place] | | | Emerge | | | ncy | | | Chief | | | Compla | | | int: | | | SOB,RT | | | ARM | | | PAIN | | | Rocco 6, | | | 2019 | | | [facility] | | | [facility] | | | [place] | | | [place] | | | Emerge | | | ncy | | | Chief | | | Compla | | | int: | | | HIGH | | | BP | | | Recent | | | [...] | | int | | | Aug 8, | | | 2019 | | [...] | | s [facility] | | | [place] | | | [place] | | | [...] | | | /notif | | | y/acba | | | 38bd-6 | | | [id number]-[id number] | | | [id number]-b74 | | | [id number] | | | [id number] | | | cd | | | PLEASE | | | [...] | | | ed.? | | | 2018 | | | [facility] | | | tive | | | Medica | | | l | | | Techno | | | logies | | | , Inc[employer] | | | - | | | [email or web address] | | | llecti | | | vemedi | | | [email or web address] | | | m | +---+--------+ documented in this encounter Results POC Glucose (11/15/2018 12:27 PM PDT) + + + + + + | Component | Value | Ref Range | Performed | Pathologist | | | | | At | Signature | + + + + + + | Glucose, | 277 (H)Comment: Testing | 65 - 99 mg/dL | [facility] | | | POC | performed at [facility];[address] | | LABORAT[address] | | | | [address];[place], [place] | | | | | | [address] | | | | + + + + + + + + | Specimen | + + | | + + + + + + + | Performing | Address | City/State/Zipcode | Phone Number | | Organization | | | | + + + + + | [facility] | [address] | [place] [address] | [phone] | + + + + + XR Abd Supine and Upright w 1 Vw Chest (11/15/2018 11:55 AM PDT) + + | Specimen | + + | | + + + + + | Impressions | Performed At | + + + | IMPRESSION: Negative acute abdomen series. No free air or | [facility] | | obstruction. Signed by: Irina Ji, Kishan Sign | | | Date/Time: 11/15/2018 12:22 PM | | + + + + + + | Narrative | Performed At | + + + | PA CHEST AND SUPINE AND UPRIGHT ABDOMEN CLINICAL INFORMATION: | [facility] | | Constipation. COMPARISON: US ABDOMEN LIMITED (02/06/2018); CT | | | ABDOMEN PELVIS W CONTRAST (02/25/2016); US KIDNEYS AND BLADDER | | | (10/08/2014); FINDINGS: Chest Findings: No intraperitoneal free | | | air. Heart, lungs and vessels normal. No adenopathy, pneumothorax or | | | pleural effusion. There is mild degenerative disc disease of the | | | thoracic spine. Abdomen Findings: Bowel gas pattern normal. No | | | intraperitoneal free air. No plain film evidence of ascites or mass. | | | No abnormal calcifications. There is mild osteoarthritis of the hip | | | joint bilaterally. Cholecystectomy clips are seen in the right | | | upper quadrant. Moderate stool burden is noted. | | + + + + + | Procedure Note | + + | Richard, Rad Results In - 11/15/2018 12:25 PM PDT | | PA CHEST AND SUPINE AND UPRIGHT ABDOMEN | | | | CLINICAL INFORMATION: | | Constipation. | | | | COMPARISON: | | US ABDOMEN LIMITED (02/06/2018); CT ABDOMEN PELVIS W CONTRAST | | (02/25/2016); US KIDNEYS AND BLADDER (10/08/2014); | | | | FINDINGS: | | Chest Findings: No intraperitoneal free air. Heart, lungs and vessels | | normal. No adenopathy, pneumothorax or pleural effusion. There is mild | | degenerative disc disease of the thoracic spine. | | | | Abdomen Findings: Bowel gas pattern normal. No intraperitoneal free | | air. No plain film evidence of ascites or mass. No abnormal | | calcifications. There is mild osteoarthritis of the hip joint | | bilaterally. Cholecystectomy clips are seen in the right upper | | quadrant. Moderate stool burden is noted. | | | | IMPRESSION: | | IMPRESSION: | | Negative acute abdomen series. No free air or obstruction. | | | | | | | | Signed by: Irina Ji Richard | | Sign Date/Time: 11/15/2018 12:22 PM | + + + +---------+ + + | Performing | Address | City/State/Zipcode | Phone Number | | Organization | | | | + +---------+ + + | [facility] | | | | + +---------+ + + documented in this encounter Visit Diagnoses + + | Diagnosis | + + | Slow transit constipation - Primary | + + | Elevated blood pressure reading Elevated blood pressure reading without diagnosis of | | hypertension | + + | Acute hyperglycemia Other abnormal glucose | + + documented in this encounter Administered Medications + +--------+ +--------+------+------+ | Medication Order | MAR | Action | Dose | Rate | Site | | | Action | Date | | | | + +--------+ +--------+------+------+ | aluminum & magnesium | Given | 11/16/19 | 30 mLs | | | | hydroxide-simethicone (MAALOX | | 19 11:40 | | | | | PLUS REGULAR STRENGTH) 200-200-20 | | AM PDT | | | | | mg/5 mL 10 mL, lidocaine | | | | | | | (XYLOCAINE) 2% 10 mL, | | | | | | | SDQXufcjsjunk-ldfctfcazfv-rqpozjl | | | | | | | e-scopolamine () 10 mL | | | | | | | liquid 30 mL, Oral, ONCE, Joselyn | | | | | | | 11/15/18 at 1135, For 1 dose, Mix | | | | | | | Maalox Plus 10 ml, Lidocaine | | | | | | | viscous 2% 10 ml, 10 ml | | | | | | | to formulate mixture., | | | | | | + +--------+ +--------+------+------+ +---+---+ | | | +---+---+ + +-------+ +--------+---+---+ | lactulose liquid 30 mL 30 mL, | Given | 11/16/19 | 30 mLs | | | | Oral, ONCE, Joselyn 11/15/18 at 1135, | | 19 11:40 | | | | | For 1 dose | | AM PDT | | | | + +-------+ +--------+---+---+ +---+---+ | | | +---+---+ documented in this encounter
--- OUTSIDE RECORDS SUMMARY | ~2019-10-12 | XMS | Encounter Summary ---
Demographics + + + | Address | [address] | | | [place] [address] | + + + | Home Phone | | + + + | Preferred Language | Unknown | + + + | Marital Status | | + + + | Sabianist Affiliation | 1027 | + + + | Race | White | + + + | Ethnic Group | Not or | + + + Author + + + | Author | [facility] | | | and [place] | + + + | Organization | [facility] | | | and [place] | + + + | Address | Unknown | + + + | Phone | Unavailable | + + + Support + + + + + | Name | Relationship | Address | Phone | + + + + + | Sammi Kohler | ECON | [place] [address] | | + + + + + Care Team Providers + +------+ + | Care Finished Goods Planner Name | Role | Phone | + +------+ + | Mireya Pack NP | PCP | | + +------+ + Encounter Details +--------+ + + + + | Date | Type | Department | Care Team | Description | +--------+ + + + + | 08/25/ | Telephone | [facility] | Jeni Dean, | | | 2019 | | CENTER | LIVESTOCK YARD ATTENDANT [address] | | | | | ANTICOAGULATION | [place] [address] | | | | | [facility] [place] | [phone] | | | | | [address] | | | | | | [place], [place] | | | | | | [address] | | | | | | [phone] | | | +--------+ + + + [...] this encounter Miscellaneous Notes Telephone Encounter - Jeni Dean ARNP - 08/26/2019 9:42 AM PDTTC to [facility] at [facility]. Re viewed my concerns with patient no taking warfarin as directed. He will have home health nu rse do medication management and fill pill box by tomorrow. Recheck INR as scheduled in 1 w robinson. documented in this e ncounter Plan of Treatment +--------+ + + + + | Date | Type | Specialty | Care Team | Description | +--------+ + + + + | 10/16/ | Anti-coag | Anticoagulation | Brittany Zaragoza | | | 2020 | visit | | [address] | | | | | | [place], | | | | | | [place] [address] | | | | | | [phone] | | | | | | | | +--------+ + + + + documented as of this encounter Visit Diagnoses Not on filedocumented in this encounter"
--- OUTSIDE RECORDS SUMMARY | ~2019-10-12 | XMS | Encounter Summary ---
Demographics + + + | Address | [address] | | | [place] [address] | + + + | Home Phone | | + + + | Preferred Language | Unknown | + + + | Marital Status | | + + + | Denominational Affiliation | 1027 | + + + | Race | White | + + + | Ethnic Group | Not or | + + + Author + + + | Author | [facility] | | | and [place] | + + + | Organization | [facility] | | | and [place] | + + + | Address | Unknown | + + + | Phone | Unavailable | + + + Support + + + + + | Name | Relationship | Address | Phone | + + + + + | Sammi Kohler | ECON | [place] [address] | | + + + + + Care Team Providers + +------+ + | Care Lift Team Technician Name | Role | Phone | + +------+ + | Mireya Pack NP | PCP | | + +------+ + Reason for Visit + +--------+ + | Reason | Onset | Comments | | | Date | | + +--------+ + | Medication Refill | 05/22/ | | | | 2019 | | + +--------+ + Encounter Details +--------+--------+ + + + | Date | Type | Department | Care Team | Description | +--------+--------+ + + + | 05/22/ | Refill | [facility] | Mel Morton, | Medication Refill | | 2019 | | [facility] [address] | Continuous Absorption Process Operator | | | | | [address] | | | | | | [place], [place] | | | | | | [address] | | | | | | [phone] | | | +--------+--------+ + + + [...] encounter Miscellaneous Notes Telephone Encounter - Mel Morton Continuous Absorption Process Operator - 05/23/2019 4:36 PM PDTRefill request received from [facility].Electronically signed by Mel Morton Continuous Absorption Process Operator darcy benton 05/23/2019 4:36 PM PDTdocumented in this encounter Plan of Treatment +--------+ + + + + | Date | Type | Specialty | Care Team | Description | +--------+ + + + + | 10/16/ | Anti-coag | Anticoagulation | Brittany Zaragoza | | 2019 | visit | | [address] | | | | | | [place], | | | | | | [place] [address] | | | | | | [phone] | | | | | | | | +--------+ + + + + documented as of this encounter Visit Diagnoses Not on filedocumented in this encounter"
--- OUTSIDE RECORDS SUMMARY | ~2019-10-12 | XMS | Encounter Summary ---
Demographics + + + | Address | [address] | | | [place] [address] | + + + | Home Phone | | + + + | Preferred Language | Unknown | + + + | Marital Status | | + + + | Rastafarian Affiliation | 1027 | + + + | Race | White | + + + | Ethnic Group | Not or | + + + Author + + + | Author | [facility] | | | and [place] | + + + | Organization | [facility] | | | and [place] | + + + | Address | Unknown | + + + | Phone | Unavailable | + + + Support + + + + + | Name | Relationship | Address | Phone | + + + + + | Sammi Kohler | ECON | [place] [address] | | + + + + + Care Team Providers + +------+ + | Care Generation Technician Name | Role | Phone | + +------+ + | Mireya Pack NP | PCP | | + +------+ + Encounter Details +--------+ + + + + | Date | Type | Department | Care Team | Description | +--------+ + + + + | 12/03/ | Telephone | [facility] | Muse, Yu, | | | 2019 | | SOLUTIONS DELIVERY CONSULTANT | [facility] | | | | | [address] | | | | | | [address] | | | | | | [place], [place] | | | | | | [address] | | | | | | [phone] | | | +--------+ + + + [...] this encounter Miscellaneous Notes Telephone Encounter - Yu Muse Medical Assistant - 12/03/2018 10:42 AM PDTPatient receiv ed interactive outreach from [facility] for [facility] discharge follow up. Patient selected cristino nuriajeffy getting medication. Returned call to patient states he can not get his diabetic socks until a couple of days. S [employer]ira [employer] insurance will not cover for them until then. States he has no further concerns. State s he is scheduled to see his PCP on 12/12/18 for follow up. documented in this encounter Plan of Treatment +--------+ + + + + | Date | Type | Specialty | Care Team | Description | +--------+ + + + + | 10/16/ | Anti-coag | Anticoagulation | Brittany Zaragoza | | | 2019 | visit | | [address] | | | | | | [place], | | | | | | [place] [address] | | | | | | [phone] | | | | | | | | +--------+ + + + + documented as of this encounter Visit Diagnoses Not on filedocumented in this encounter"
--- OUTSIDE RECORDS SUMMARY | ~2019-10-12 | XMS | Encounter Summary ---
Demographics + + + | Address | [address] | | | [place] [address] | + + + | Home Phone | | + + + | Preferred Language | Unknown | + + + | Marital Status | | + + + | Confucianism Affiliation | 1027 | + + + | Race | White | + + + | Ethnic Group | Not or | + + + Author + + + | Author | [facility] | | | and [place] | + + + | Organization | [facility] | | | and [place] | + + + | Address | Unknown | + + + | Phone | Unavailable | + + + Support + + + + + | Name | Relationship | Address | Phone | + + + + + | Sammi Kohler | ECON | [place] [address] | | + + + + + Care Team Providers + +------+ + | Care Dosimetrist Name | Role | Phone | + +------+ + | Mireya Pack NP | PCP | | + +------+ + Encounter Details +--------+ + + + + | Date | Type | Department | Care Team | Description | +--------+ + + + + | 05/19/ | Skilled | [facility] | Mireya Pack, | Abnormality of gait | | 2020 | Nursing | [facility] [address] | AIR CONDITIONING UNIT ASSEMBLER [address] | due to impairment of | | | Facility | [address] | [address] [place], | balance (Primary | | | | [place], [place] | [place] [address] | Dx); Dizziness; | | | | [address] | [phone] | Essential | | | | [phone] | | hypertension; | | | | | | Uncontrolled type 2 | | | | | | diabetes mellitus | | | | | | with hyperglycemia | | | | | | ([facility]) | +--------+ + + + + Social [...] + + + | Blood Pressure | 155/68 | 05/20/2019 10:27 AM | | | | | PDT | | + + + + + | Pulse | 76 | 05/20/2019 10:27 AM | | | | | PDT | | + + + + + | Temperature | 36.7 C (98.1 F) | 05/20/2019 10:27 AM | | | | | PDT | | + + + + + | Respiratory Rate | 22 | 05/20/2019 10:27 AM | | | | | PDT | | + + + + + | Oxygen Saturation | 97% | 05/20/2019 10:27 AM | | | | | PDT | | + + + + + | Inhaled Oxygen | - | - | | | Concentration | | | | + + + + + | Weight | 103.5 kg (228 lb 3.2 | 05/20/2019 10:27 AM | | | | oz) | PDT | | + + + + + | Height | - | - | | + + + + + | Body Mass Index | 31.83 | 05/15/2019 8:21 PM | | | | | PDT [...] documented as of this encounter Progress Notes Myriam Gary, Hospital Account Manager - 05/20/2019 9:15 AM PDTPrinted for [facility] nursing staff. Mireya Riley do, NP - 05/20/2019 9:15 AM PDT Assessment/Plan: Diagnoses and all orders for this visit: Abnormality of gait due to impairment of balance Dizziness good rehabilitation candidate PT/OT eval and treat Discussed rehabilitation plan of care in detail Essential hypertension Review of BP readings occasional hypertensive but majority BP readings at goal < 130/80. Co ntinue current antihypertensive . Instructed patient on discharge home I recommend he contac t office to discuss management of transient hypertensive episodes rather than return to ED. Uncontrolled type 2 diabetes mellitus with hyperglycemia (HCC) Currently controlled at SNF on current insulin orders. Mireya James NP - 05/20/2019 9:15 AM PDT Subjective: Patient ID: Kevyn Guzman is a 63 y.o. male Resident of [facility] with a qualifying stay at [facility] from to 05-17-2019, presented with fall. Admitted for fall from ground level. Patient t o continue on Eliquis, unless hematoma expands. He is to continue on Coreg and Apixiban for a-fib. Discharged to SNF for PT/OT, medication management and senior living. Past Medical History: Diagnosis Date Acute pulmonary embolism (HCC) 10/14/2017 Anxiety ARF (acute renal failure) (HCC) 03/02/2013 Atrial fibrillation (HCC) Basal cell carcinoma 09/26/2012 arm and back COPD (chronic obstructive pulmonary disease) (HCC) 03/02/2013 hypoxemia on 2 lts nc Depression Development delay Diabetes mellitus type II DVT (deep venous thrombosis) ([facility]) 03/29/2018 Facial droop 07/08/2013 GIB (gastrointestinal bleeding) 03/02/[address] Nur, rectal ulcers, nodule of GE junction Hypercholesterolemia 07/08/2013 Hyperlipidemia Hypertension assisted (current) use of 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 Obesity, Class I, BMI 30-34.9 07/08/2013 WARD (obstructive sleep apnea) 08/11/2012 does not use CPAP because of the noise Other chronic pain Renal failure Stroke (HCC) TIA (transient ischemic attack) Unspecified visual disturbance reading glasses Past Surgical History: Procedure Laterality Date ABDOMEN SURGERY CHOLECYSTECTOMY CHOLECYSTECTOMY, LAPAROSCOPIC 09/12/2012 Procedure: LAPAROSCOPIC - CHOLECYSTECTOMY; Surgeon: Jevon Vargas DO; Location: [facility]; Service: General; Laterality: N/A; COLONOSCOPY COLONOSCOPY 03/04/2013 Procedure: COLONOSCOPY; Surgeon: Howie Gibson MD; Location: [facility] ENDOSCOPY; Service: Gastroen terology; Laterality: N/A; HERNIA REPAIR 07/03/2013 Procedure: LAPAROSCOPIC - HERNIA - INCISIONAL; Surgeon: Jevon Vargas DO; Location: [facility]; Service: General; Laterality: N/A; KNEE SURGERY rt knee, patella LEG SURGERY LLE OTHER SURGICAL HISTORY UNLISTED PROCEDURE ARTHROSCOPY OTHER SURGICAL HISTORY Left 05/05/2014 SKIN LESION EXCISION - Procedure: EXCISION - LESION - FROZEN SECTION; Surgeon: Sy murcia MD; Location: [facility] MAIN OR; Service: Plastics; Laterality: Left; forearm SKIN BIOPSY SKIN CANCER EXCISION Left 10/10/2012 Procedure: EXCISION - SKIN CANCER; Surgeon: Sy Fierro MD; Location: [facility] MAIN OR; Service: Plastics; Laterality: Left; upper arm and upper back w/frozen section UPPER GASTROINTESTINAL ENDOSCOPY UPPER GASTROINTESTINAL ENDOSCOPY 03/03/2013 Procedure: ESOPHAGOGASTRODUODENOSCOPY; Surgeon: Howie Gibson MD; Location: [facility] ENDOSCOPY; Se rvice: Gastroenterology; Laterality: N/A; Social History Socioeconomic History Marital status: Spouse [...] Lives alone x 1 wk, moved from [facility], , 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 2 falls in the last 6 months. Family History Problem Relation Age of Onset Heart disease Father Heart disease Sister Diabetes, NIDDM Sister Other (see comment) Brother Heart Problems Allergies: Allergies Allergen Reactions Nitroglycerin Swelling Tongue swelling Vitamin B12 Rash Rash Current Medications: Current Outpatient Medications Medication Sig Dispense Refill acetaminophen (TYLENOL) 325 mg tablet Take 2 tablets by mouth every 4 hours as needed f or Pain (or fever >= 38.6 C (101.5 F)). 30 tablet 1 apixaban (ELIQUIS) 5 mg tablet Take 1 tablet by mouth 2 times daily. 60 tablet 4 ARIPiprazole (ABILIFY) 5 mg tablet Take 1 tablet by mouth Daily. 30 tablet 4 atorvaSTATin (LIPITOR) 40 mg tablet Take 1 tablet by mouth nightly. 30 tablet 11 Blood Glucose Monitoring Suppl (BLOOD GLUCOSE MONITOR SYSTEM) w/Device KIT Dispense bra nd per patient preference 1 each 0 budesonide-formoterol (SYMBICORT) 160-4.5 mcg/puff inhaler Inhale 2 puffs into the lung s 2 times daily. 1 Inhaler 0 carvedilol (COREG) 12.5 mg tablet Take 1 tablet by mouth 2 times daily (with breakfast & dinner). 60 tablet 4 finasteride (PROSCAR) 5 mg tablet Take 1 tablet by mouth Daily. 30 tablet 4 Glucose Blood (BLOOD GLUCOSE TEST STRIPS) STRP For blood sugar testing 4 times daily 40 0 each 3 hydrALAZINE (APRESOLINE) 25 mg tablet Take 1 tablet by mouth 2 times daily. 60 tablet 4 HYDROcodone-acetaminophen (NORCO) 5-325 mg per tablet Take 1-2 tablets by mouth every 4 hours as needed for up to 10 days. 30 tablet 0 insulin detemir (LEVEMIR FLEXTOUCH) 100 units/mL injection (pen) Inject 45 Units under the skin nightly. 12 mL 0 insulin lispro (HUMALOG KWIKPEN) 100 units/mL injection (pen) Inject 15 Units under the skin 3 times daily (with meals). 0 Insulin Pen Needle (BD PEN NEEDLE KYAW U/F) 32G X 4 MM MISC For insulin administration 4 times daily 200 each 11 Lancets (ACCU-CHEK MULTICLIX) MISC 1 each by Other route 4 times daily. 400 each 3 lisinopril (PRINIVIL,ZESTRIL) 40 MG tablet Take 1 tablet by mouth Daily. 30 tablet 11 meclizine (ANTIVERT) 25 mg tablet Take 1 tablet by mouth 3 times daily as needed. 60 ta blet 0 melatonin 3 mg TABS Take 1 tablet by mouth nightly as needed for Insomnia. 30 tablet 0 metFORMIN (GLUCOPHAGE) 500 mg tablet Take 1 tablet by mouth 2 times daily (with breakfa st & dinner). 60 tablet 4 NIFEdipine (ADALAT CC) 60 MG 24 hr tablet Take 1 tablet by mouth Daily. 30 tablet 4 omeprazole (PRILOSEC) 20 mg capsule Take 1 capsule by mouth every morning (before break fast). (Patient not taking: Reported on 05/20/2019) 30 capsule 4 polyethylene glycol (MIRALAX) packet Take 1 diluted packet by mouth Daily as needed for Constipation for up to 10 days. 12 each 0 tamsulosin (FLOMAX) 0.4 mg CAPS Take 1 capsule by mouth 2 times daily. 60 capsule 4 No current facility-administered medications for this visit. CODE: CPR, limited additional interventions, use antibiotics if life can be prolonged and l enrico term artificial nutrition by tube. HPI Patient reports that he is frustrated with medical bills and has been having difficulty wit h high blood pressure at home. No pain on exam. Patient's medications, allergies, past medical, surgical, social and family histories were obtained and reviewed as appropriate. Review of Systems Constitutional: Negative for activity change, appetite change, chills, fatigue, fever and u nexpected weight change. Respiratory: Negative for cough, chest tightness, shortness of breath and wheezing. Cardiovascular: Negative for chest pain and leg swelling. Gastrointestinal: Negative for abdominal distention, abdominal pain, constipation and diarr hea. Genitourinary: Negative for difficulty urinating. Musculoskeletal: Positive for gait problem. Negative for arthralgias and back pain. Skin: Negative for rash and wound. Psychiatric/Behavioral: Negative for dysphoric mood and sleep disturbance. The patient is n ervous/anxious. Objective: Physical Exam Constitutional: General: He is not in acute distress. Appearance: He is well-developed. He is not diaphoretic. HENT: Head: Normocephalic and atraumatic. Mouth/Throat: Pharynx: No oropharyngeal exudate. Eyes: Conjunctiva/sclera: Conjunctivae normal. Neck: Musculoskeletal: Normal range of motion and neck supple. Cardiovascular: Rate and Rhythm: Normal rate and regular rhythm. Heart sounds: Normal heart sounds. Pulmonary: Effort: Pulmonary effort is normal. No respiratory distress. Breath sounds: Normal breath sounds. No wheezing. Abdominal: General: Bowel sounds are normal. There is no distension. Palpations: Abdomen is soft. There is no mass. Tenderness: There is no abdominal tenderness. There is no guarding or rebound. Hernia: No hernia is present. Musculoskeletal: Normal range of motion. Comments: Knee brace Skin: General: Skin is warm and dry. Findings: No erythema or rash. Neurological: Mental Status: He is alert and oriented to person, place, and time. Psychiatric: Speech: Speech normal. Cognition and Memory: Memory is not impaired. BP 155/68 | Pulse 76 | Temp 36.7 C (98.1 F) (Temporal) | Resp 22 | Wt 103.5 kg (228 lb 3.2 oz) | SpO2 97% | BMI 31.83 kg/m Chemistry Component Value Date/Time NA 139 05/16/2019 0429 K 4.1 05/16/2019 0429 CL 107 05/16/2019 0429 CO2 26 05/16/2019 0429 GLU 294 (H) 05/16/2019 0429 GLU 337 (A) 10/12/2018 0823 BUN 19 05/16/2019 0429 CREA 0.9 05/16/2019 0429 ANIONGAP 10 05/16/2019 0429 Component Value Date/Time CALCIUM 9.2 05/16/2019 0429 ALKPHOS 129 (H) 05/16/2019 0429 AST 20 05/16/2019 0429 ALT 24 05/16/2019 0429 ALBUMIN 2.5 (L) 05/16/2019 0429 BILITOT 0.5 09/21/2018 1810 Lab Results Component Value Date EGFR >60 05/16/2019 GLUF 292 (H) 09/21/2018 GLOB 2.7 09/21/2018 Lab Results Component Value Date WBC 10.82 05/18/2019 HGB 11.4 (L) 05/18/2019 HCT 34.1 (L) 05/18/2019 MCV 85.0 05/18/2019 PLT 207 05/18/2019 No results found for: [id number] No results found for: FOLATE No results found for: IRON, TIBC, FERRITIN Lab Results Component Value Date TSH 2.780 03/27/2019 Lab Results Component Value Date HBA1C 9.3 (H) 05/17/2019 Lab Results Component Value Date CHOL 182 01/04/2019 CHOL 151 12/13/2018 CHOL 166 10/12/2018 Lab Results Component Value Date HDL 25 (L) 01/04/2019 HDL 30 (L) 12/13/2018 HDL 26 (L) 10/12/2018 Lab Results Component Value Date LDL LDL NOT VALID WHEN TRIG >400 mg/dL 01/04/2019 LDL 65 12/13/2018 LDL LDL NOT VALID WHEN TRIG >400 mg/dL 10/12/2018 No results found for: LDLDIRECT Lab Results Component Value Date TRIG 496 (H) 01/04/2019 TRIG 280 (H) 12/13/2018 TRIG 498 (H) 10/12/2018 No results found for: CHOLHDL No components found for: [id number], PTHINT No results found for: DIGOXIN No results found for: URICACID Assessment/Plan: See Assessment and plan documented in separate progress note in this same encounter documented in this e ncounter Plan of [...] | | | | | | [place] [address] | | | | | | [phone] | | | | | | | | +--------+ + + + + documented as of this encounter Visit Diagnoses + + | Diagnosis | + + | Abnormality of gait due to impairment of balance - Primary | + + | Dizziness Dizziness and giddiness | + + | Essential hypertension Unspecified essential hypertension | + + | Uncontrolled type 2 diabetes mellitus with hyperglycemia (HCC) | + + documented in this encounter"
--- OUTSIDE RECORDS SUMMARY | ~2019-10-12 | XMS | Encounter Summary ---
Demographics + + + | Address | [address] | | | [place] [address] | + + + | Home Phone | | + + + | Preferred Language | Unknown | + + + | Marital Status | | + + + | Baptism Affiliation | [id number] | + + + | Race | White | + + + | Ethnic Group | Not or | + + + Author + + + | Author | [facility] | | | and [place] | + + + | Organization | [facility] | | | and [place] | + + + | Address | Unknown | + + + | Phone | Unavailable | + + + Support + + + + + | Name | Relationship | Address | Phone | + + + + + | Sammi Kohler | ECON | [place] [address] | | + + + + + Care Team Providers + +------+ + | Care Head Strength And Conditioning Coach Name | Role | Phone | + +------+ + PCP | Unavailable | + +------+ + Encounter Details +--------+ + + + + | Date | Type | Department | Care Team | Description | +--------+ + + + + | 05/05/ | Hospital | [facility] | Sy Fierro, | Neoplasm of | | 2015 | Encounter | [facility] | [address] | uncertain behavior | | | | [address] | [address], | of skin | | | | [place] | [place] [address] | | | | | [address] | [phone] | | | | | [phone] | | | +--------+ + + + [...] documented as of this encounter Discharge Summaries Sy Fierro MD - 05/05/2014 9:13 AM PDT Discharge Summaries by Sy Fierro MD at 05/05/14912 Author: Sy Fierro MD Service: Plastic Surgery Author Type: Physician Filed: 05/05/14913 Date of Service: 05/05/14912 Status: Signed Felt Cutter: Sy Fierro MD (Physician) [facility] Service: Plastic Surgery Brief Post-op Discharge Note DISCHARGE DIAGNOSES: Active Problems: * No active hospital problems. * Resolved Problems: * No resolved hospital problems. * Procedures: Procedure(s) with comments: EXCISION - LESION - FROZEN SECTION - forearm This patient was transferred to the recovery area post-operatively and has experienced no d ifficulties at the time of my assessment. The patient is anticipated to continue to meet di scharge criteria per protocol as assessed by nursing and may be discharged at that time with designated caregiver. Disposition: Home Condition: Good Code Status: Full Code No discharge procedures on file. Follow up: Jerrell Diego, DO [address] [place] [address] [facility] [id number] Sy Fierro MD [address] [facility] [place] [id number] In 2 weeks Medication List CHANGE how you take these medications diltiazem 240 MG 24 hr capsule QTY: 15 capsule Refills: 0 Commonly known as: CARDIZEM CD Take 1 capsule by mouth daily. What changed: - how much to take - additional instructions * HYDROcodone-acetaminophen 5-325 MG per tablet Refills: 0 Commonly known as: NORCO What changed: Another medication with the same name was added. Make sure you understand ho w and when to take each. * HYDROcodone-acetaminophen 7.5-325 MG per tablet QTY: 20 tablet Refills: 0 Commonly known as: NORCO Take 1 tablet by mouth every 6 (six) hours as needed for Pain. What changed: Another medication with the same name was added. Make sure you understand ho w and when to take each. * HYDROcodone-acetaminophen 5-325 MG per tablet QTY: 30 tablet Refills: 0 Commonly known as: NORCO Take 1 tablet by mouth every 6 (six) hours as needed for Pain. What changed: You were already taking a medication with the same name, and this prescripti on was added. Make sure you understand how and when to take each. insulin glargine 100 UNIT/ML injection QTY: 10 mL Refills: 12 Commonly known as: LANTUS Inject 82 Units into the skin nightly. What changed: how much to take * Notice: This list has 3 medication(s) that are the same as other medications prescribed for you. Read the directions carefully, and ask your doctor or other care provider to revie w them with you. CONTINUE taking these medications amLODIPine 10 MG tablet QTY: 30 tablet Refills: 1 Commonly known as: NORVASC Take 1 tablet by mouth daily. antipyrine-benzocaine otic solution Refills: 0 Commonly known as: AURALGAN ARIPiprazole 15 MG tablet Refills: 0 Commonly known as: ABILIFY aspirin 81 MG chewable tablet QTY: 30 tablet Refills: 0 Take 1 tablet by mouth daily with breakfast. BEANO Tabs Refills: 0 calcium carbonate 500 MG chewable tablet Refills: 0 Commonly known as: TUMS clonazePAM 1 MG tablet Refills: 0 Commonly known as: KlonoPIN clonidine Refills: 0 Commonly known as: CATAPRES diltiazem 240 MG 24 hr capsule Refills: 0 Commonly known as: DILACOR XR docusate sodium 100 MG capsule Refills: 0 Commonly known as: COLACE DULERA 100-5 MCG/ACT inhaler Refills: 0 Generic drug: mometasone-formoterol fenofibrate 160 MG tablet Refills: 0 Commonly known as: TRICOR furosemide 20 MG tablet QTY: 7 tablet Refills: 0 Commonly known as: LASIX Take 1 tablet by mouth daily. gabapentin 100 MG capsule Refills: 0 Commonly known as: NEURONTIN lamoTRIgine 100 MG tablet Refills: 0 Commonly known as: LaMICtal yqzmrfwhc-zobahvhf-qpsjupbdg hydroxide-simethicone Refills: 0 LORazepam 1 MG tablet Refills: 0 Commonly known as: ATIVAN meclizine 25 MG tablet Refills: 0 Commonly known as: ANTIVERT nitroGLYCERIN 0.4 MG SL tablet Refills: 0 Commonly known as: NITROSTAT NOVOLOG 100 UNIT/ML injection QTY: 10 mL Refills: 5 Generic drug: insulin aspart INJ 3U SUB-Q TID(AC) AND INJECT SUBCUTANEOUSLY PER SLIDING SCALE 1-70= 2U, 71-100=3U, 101-1 20= 4U, 121-150=5U, 151-180=6U, 181-210= 7U, 211- omeprazole 20 MG capsule QTY: 60 capsule Refills: 1 Commonly known as: PRILOSEC Take 1 capsule by mouth 2 (two) times daily. ondansetron 4 MG disintegrating tablet Refills: 0 Commonly known as: ZOFRAN-ODT oxyCODONE-acetaminophen 5-325 MG per tablet Refills: 0 Commonly known as: PERCOCET PARoxetine 40 MG tablet Refills: 0 Commonly known as: PAXIL polyethylene glycol powder QTY: 527 g Refills: 5 Commonly known as: GLYCOLAX DISSOLVE 17GM IN LIQUID AND DRINK BY MOUTH EVERY DAY pravastatin 20 MG tablet Refills: 0 Commonly known as: PRAVACHOL psyllium 28 % packet QTY: 30 each Refills: 0 Commonly known as: METAMUCIL SMOOTH TEXTURE Take 1 packet by mouth daily. tamsulosin 0.4 MG capsule Refills: 0 Commonly known as: FLOMAX tiotropium 18 MCG inhalation capsule Refills: 0 Commonly known as: SPIRIVA VENTOLIN HFA IN Refills: 0 Where to Get Your Medications These are the prescriptions that you need to pickle sorter. You may get the following medications from any pharmacy - HYDROcodone-acetaminophen 5-325 MG per tablet Sy Fierro MD 05/05/2014 documented in thi s encounter Medications at [...] documented as of this encounter H&P Notes Sy Fierro MD - 05/05/2014 6:59 AM PDT Interval H&P Note by Sy Fierro MD at 05/05/14658 Author: Sy Fierro MD Service: Plastic Surgery Author Type: Physician Filed: 05/05/1459 Date of Service: 05/05/14658 Status: Signed Felt Cutter: Sy Fierro MD (Physician) [facility] Service: Plastic Surgery Pre-Operative History & Physical Interval Update There have been no significant clinical changes since the completion of the above H&P. Sy Fierro MD 05/05/2014 *CORE MEASURES REMINDER: If the patient has a known or suspected infection prior to surger y, please add diagnosis to the problem list (consider: Infection 136.9). Source Note Author: Sy Fierro MD Service: (none) Author Type: Physician Filed: 04/29/140 Date of Service: 04/29/141108 Status: Signed Felt Cutter: Sy Fierro MD (Physician) [facility] Service: Plastic Surgery Pre-Operative History & Physical HISTORY OF PRESENT ILLNESS The patient is a 58 y.o. male admitted for outpatient surgery involving excision of basal c ell carcinoma from the skin of the left forearm with frozen section evaluation. This will b e done under monitored anesthesia care. Review of Systems Constitutional: Negative for activity change. Respiratory: Negative for cough. Cardiovascular: Negative for chest pain. Past Medical History Diagnosis Date Diabetes mellitus [...] 09/26/2012 arm and back Other chronic pain Past Surgical History Procedure Laterality Date Unlisted procedure arthroscopy Knee surgery rt knee, patella Leg surgery LLE Colonoscopy Cholecystectomy, laparoscopic 09/12/2012 Procedure: LAPAROSCOPIC - CHOLECYSTECTOMY; Surgeon: Jevon Vargas DO; Location: [facility]; Service: General; Laterality: N/A; Abdominal surgery Cholecystectomy Skin cancer excision 10/10/2012 Procedure: EXCISION - SKIN CANCER; Surgeon: Sy Fierro MD; Location: [facility] ; Service: Plastics; Laterality: Left; upper arm and upper back w/frozen section Esophagogastroduodenoscopy 03/03/2013 Procedure: ESOPHAGOGASTRODUODENOSCOPY; Surgeon: Howie Gibson MD; Location: [facility]; S ervice: Gastroenterology; Laterality: N/A; Colonoscopy 03/04/2013 Procedure: COLONOSCOPY; Surgeon: Howie Gibson MD; Location: [facility]; Service: Gastroe nterology; Laterality: N/A; Upper gastrointestinal endoscopy Skin biopsy Hernia repair 07/03/2013 Procedure: LAPAROSCOPIC - HERNIA - INCISIONAL; Surgeon: Jevon Vargas DO; Location: [facility]; Service: General; Laterality: N/A; Allergies Allergen Reactions Vitamin B12 Rash Current Outpatient Prescriptions on File Prior to Visit Medication Sig Dispense Refill Albuterol Sulfate (VENTOLIN HFA IN) Inhale 2 puffs into the lungs as needed. 108 mcg/ac t Hdrgg-S-Cweujsjepyovt (BEANO) TABS Take 150 Units by mouth 3 (three) times daily as nee ded (As needed for gas). amLODIPine (NORVASC) 10 MG tablet Take 1 tablet by mouth daily. 30 tablet 1 antipyrine-benzocaine (AURALGAN) otic solution Place 4 drops into both ears daily. ARIPiprazole (ABILIFY) 15 MG tablet Take 20 mg by mouth daily. aspirin 81 MG chewable tablet Take 1 tablet by mouth daily with breakfast. 30 tablet 0 calcium carbonate (TUMS) 500 MG chewable tablet Take 500-1,000 mg by mouth daily as nee ded. For GERD clonazePAM (KLONOPIN) 1 MG tablet Take 1 mg by mouth 2 (two) times daily as needed for Anxiety. clonidine (CATAPRES) Place 1 patch onto the skin once a week. 0.2mg/hr diltiazem (CARDIZEM CD) 240 MG 24 hr capsule Take 1 capsule by mouth daily. (Patient sb guthrie differently: Take 240 mg by mouth daily. 180 mg at hs) 15 capsule 0 docusate sodium (COLACE) 100 MG capsule Take 250 mg by mouth 2 (two) times daily. "Hold if loose stools" as noted on APR from pt's facility. fenofibrate (TRIGLIDE) 160 MG tablet Take 160 mg by mouth daily. furosemide (LASIX) 20 MG tablet Take 1 tablet by mouth daily. 7 tablet 0 gabapentin (NEURONTIN) 100 MG capsule Take 100 mg by mouth every evening. HYDROcodone-acetaminophen (NORCO) 5-325 MG per tablet Take 1 tablet by mouth every 6 (s ix) hours as needed for Pain. insulin glargine (LANTUS) 100 UNIT/ML injection Inject 82 Units into the skin nightly. 10 mL 12 lamoTRIgine (LAMICTAL) 100 MG tablet Take 100 mg by mouth nightly. ysbyhildf-hcqydfex-ducmtvkxn hydroxide-simethicone Take 40 mLs by mouth daily as needed . lisinopril (ZESTRIL) 40 MG tablet Take 40 mg by mouth every evening. LORazepam (ATIVAN) 1 MG tablet Take 1 [...] by mouth 2 (two) times daily. 60 ca psule 1 ondansetron (ZOFRAN-ODT) 4 MG disintegrating tablet Take 4 mg by mouth every 6 (six) ho urs as needed for Nausea. oxyCODONE-acetaminophen (PERCOCET) 5-325 MG per tablet Take 1 tablet by mouth every 6 ( six) hours as needed for Pain. paroxetine (PAXIL) 40 MG tablet Take 40 mg by mouth every morning. polyethylene glycol (GLYCOLAX) powder DISSOLVE 17GM IN LIQUID AND DRINK BY MOUTH EVERY DAY 527 g 5 pravastatin (PRAVACHOL) 20 MG tablet Take 20 mg by mouth nightly. psyllium (METAMUCIL SMOOTH [...] Inhale 18 mcg into the lungs daily. Current Facility-Administered Medications on File Prior to Visit Medication Dose Route Frequency Provider Last Rate Last Dose [DISCONTINUED] acetaminophen (TYLENOL) suppository 650 mg 650 mg Rectal Q6H PRN Maryann Jimenez MD [DISCONTINUED] acetaminophen (TYLENOL) tablet 650 mg 650 mg Oral Q6H PRN Edenilson Shearer ed, MD [DISCONTINUED] aluminum-magnesium hydroxide-simethicone (MAALOX) 200-200-20 MG/5ML susp ension 30 mL 30 mL Oral Q6H PRN Edenilson Jimenez MD [DISCONTINUED] amLODIPine (NORVASC) tablet 10 mg 10 mg Oral Daily Edenilson Jimenez MD 10 mg at 04/28/14 0900 [DISCONTINUED] ARIPiprazole (ABILIFY) tablet 20 mg 20 mg Oral Daily Emre Finley 20 mg at 04/28/14900 [DISCONTINUED] aspirin chewable tablet 81 mg 81 mg Oral Daily with breakfast Edenilson Jimenez MD 81 mg at 04/28/14903 [DISCONTINUED] atorvastatin (LIPITOR) tablet 10 mg 10 mg Oral Nightly Edenilson Jimenez MD [DISCONTINUED] cloNIDine (CATAPRES) 0.2 MG/24HR patch 1 patch 1 patch Transdermal Week ly Edenilson Jimenez MD [DISCONTINUED] dextrose 10 % infusion Intravenous Continuous PRN Edenilson Jimenez MD [DISCONTINUED] dextrose 50 % solution 12 mL 12 mL Intravenous PRN Edenilson Jimenez MD [DISCONTINUED] dextrose 50 % solution 25 mL 25 mL Intravenous PRN Edenilson Jimenez MD [DISCONTINUED] diltiazem (CARDIZEM CD) 24 hr capsule 240 mg 240 mg Oral Daily Edenilson Jimenez MD 240 mg at 04/28/14900 [DISCONTINUED] docusate calcium (SURFAK) capsule 240 mg 240 mg Oral BID Edenilson light MD 240 mg at 04/28/14 0900 [DISCONTINUED] enoxaparin (LOVENOX) injection 40 mg 40 mg Subcutaneous Q24H Edenilson Jimenez MD 40 mg at 04/28/14 0859 [DISCONTINUED] fenofibrate (TRICOR) tablet 54 mg 54 mg Oral Daily Edenilson Jimenez MD 54 mg at 04/28/14900 [DISCONTINUED] gabapentin (NEURONTIN) capsule 100 mg 100 mg Oral QPM Edenilson Jimenez MD [DISCONTINUED] glucagon (GLUCAGEN) injection 0.5 mg 0.5 mg Intramuscular PRN Edenilson Jimenez MD [DISCONTINUED] glucagon (GLUCAGEN) injection 1 mg 1 mg Intramuscular PRN Edenilson Shearer ed, MD [DISCONTINUED] HYDROcodone-acetaminophen (NORCO) 5-325 MG per tablet 1 tablet 1 tablet Oral Q6H PRN Edenilson Jimenez MD [DISCONTINUED] HYDROmorphone (DILAUDID) injection 0.5 mg 0.5 mg Intravenous Q3H PRN Adolph Jimenez MD [DISCONTINUED] HYDROmorphone (DILAUDID) injection 1 mg 1 mg Intravenous Q3H PRN Maryann Jimenez MD [DISCONTINUED] insulin aspart (NOVOLOG) injection 0-3 Units 0-3 Units Subcutaneous Nig htly Edenilson Jimenez MD [DISCONTINUED] insulin aspart (NOVOLOG) injection 0-6 Units 0-6 Units Subcutaneous TID AC Edenilson Jimenez MD 1 Units at 04/28/14 1248 [DISCONTINUED] insulin glargine (LANTUS) injection 82 Units 82 Units Subcutaneous Nigh tly Edenilson Jimenez MD [DISCONTINUED] lamoTRIgine (LaMICtal) tablet 100 mg 100 mg Oral Nightly Edenilson light MD [DISCONTINUED] lisinopril (ZESTRIL) tablet 40 mg 40 mg Oral QPM Edenilson Jimenez MD [DISCONTINUED] LORazepam (ATIVAN) injection 1 mg 1 mg Intravenous Q4H PRN Edenilson cano MD [DISCONTINUED] LORazepam (ATIVAN) tablet 1 mg 1 mg Oral Q4H PRN Edenilson Jimenez MD [DISCONTINUED] meclizine (ANTIVERT) tablet 25 mg 25 mg Oral TID PRN Emre Finley [DISCONTINUED] naproxen sodium (ANAPROX) tablet 220 mg 220 mg Oral BID WC Edenilson cano MD 220 mg at 04/28/14 0900 [DISCONTINUED] nitroGLYCERIN (NITROSTAT) SL tablet 0.4 mg 0.4 mg Sublingual Q5 Min PRN Edenilson Jimenez MD [DISCONTINUED] ondansetron (ZOFRAN) injection 4 mg 4 mg Intravenous Q6H PRN Edenilson Jimenez MD [DISCONTINUED] ondansetron (ZOFRAN) tablet 4 mg 4 mg Oral Q6H PRN Edenilson Jimenez MD [DISCONTINUED] oxyCODONE-acetaminophen (PERCOCET) 5-325 MG per tablet 1 tablet 1 table t Oral Q6H PRN Edneilson Jimenez MD [DISCONTINUED] pantoprazole (PROTONIX) EC tablet 40 mg 40 mg Oral QAM AC Edenilson Shearer ed, MD 40 mg at 04/28/14 0905 [DISCONTINUED] PARoxetine (PAXIL) tablet 40 mg 40 mg Oral QAM Edenilson Jimenez MD 40 mg at 04/28/14 0900 [DISCONTINUED] polyethylene glycol (GLYCOLAX) packet 17 g 17 g Oral Daily PRN Edenilson Jimenez MD [DISCONTINUED] sodium chloride 0.9 % infusion Intravenous Continuous Edenilson Jimenez MD 150 mL/hr at 04/28/14 1104 [DISCONTINUED] tamsulosin (FLOMAX) capsule 0.4 mg 0.4 mg Oral BID Edenilson Jimenez MD 0.4 mg at 04/28/14 0901 [DISCONTINUED] tiotropium (SPIRIVA) inhalation capsule 18 mcg 18 mcg Inhalation Daily Edenilson Jimenez MD 18 mcg at 04/28/14 0900 [DISCONTINUED] zolpidem (AMBIEN) tablet 5 mg 5 mg Oral Nightly PRN Edenilson Jimenez MD Family History Problem Relation Age of Onset Heart disease Father Heart disease Sister Diabetes type II Sister Heart Problems Brother PHYSICAL EXAM Vital Signs: There were no vitals taken for this visit. Physical Exam Constitutional: He appears well-developed and well-nourished. Cardiovascular: Normal rate and regular rhythm. Pulmonary/Chest: Effort normal and breath sounds normal. skin: Healing biopsy site radial aspect left forearm PROBLEM LIST Patient Active Problem List Diagnosis Diabetes mellitus, type 2 Chest pain HTN (hypertension) RUQ pain Cholelithiases Hypoxia AWRD (obstructive sleep apnea) Fall at home Anxiety and depression CO2 retention Respiratory acidosis Neoplasm of uncertain behavior of skin Labile hypertension Basal cell carcinoma Renal azotemia History of GI bleed Development delay ARF (acute renal failure) COPD (chronic obstructive pulmonary disease) Paroxysmal atrial fibrillation Hyperlipidemia Chronic back pain Elevated d-dimer GERD without esophagitis Obesity, Class I, BMI 30-34.9 Near syncope Facial droop CKD (chronic kidney disease) RLQ abdominal pain Dehydration ASSESSMENT & PLAN Basal cell carcinoma left forearm. The patient will undergo excision. RCAPs discussed wit h him. Sy Fierro MD 04/29/2014 leming, Sy Redman MD - 04/29/2014 11:09 AM PDT H&P (View-Only) by Sy iFerro MD at 04/29/14 6039 Author: Sy Fierro MD Service: (none) Author Type: Physician Filed: 04/29/14 8212 Date of Service: 04/29/141108 Status: Signed Felt Cutter: Sy Fierro MD (Physician) [facility] Service: Plastic Surgery Pre-Operative History & Physical HISTORY OF PRESENT ILLNESS The patient is a 58 y.o. male admitted for outpatient surgery involving excision of basal c ell carcinoma from the skin of the left forearm with frozen section evaluation. This will b e done under monitored anesthesia care. Review of Systems Constitutional: Negative for activity change. Respiratory: Negative for cough. Cardiovascular: Negative for chest pain. Past Medical History Diagnosis Date Diabetes mellitus [...] 09/26/2012 arm and back Other chronic pain Past Surgical History Procedure Laterality Date Unlisted procedure arthroscopy Knee surgery rt knee, patella Leg surgery LLE Colonoscopy Cholecystectomy, laparoscopic 09/12/2012 Procedure: LAPAROSCOPIC - CHOLECYSTECTOMY; Surgeon: Jevon Vargas DO; Location: [facility]; Service: General; Laterality: N/A; Abdominal surgery Cholecystectomy Skin cancer excision 10/10/2012 Procedure: EXCISION - SKIN CANCER; Surgeon: Sy Fierro MD; Location: [facility] ; Service: Plastics; Laterality: Left; upper arm and upper back w/frozen section Esophagogastroduodenoscopy 03/03/2013 Procedure: ESOPHAGOGASTRODUODENOSCOPY; Surgeon: Howie Gibson MD; Location: [facility]; S ervice: Gastroenterology; Laterality: N/A; Colonoscopy 03/04/2013 Procedure: COLONOSCOPY; Surgeon: Howie Gibson MD; Location: [facility]; Service: Gastroe nterology; Laterality: N/A; Upper gastrointestinal endoscopy Skin biopsy Hernia repair 07/03/2013 Procedure: LAPAROSCOPIC - HERNIA - INCISIONAL; Surgeon: Jevon Vargas DO; Location: [facility]; Service: General; Laterality: N/A; Allergies Allergen Reactions Vitamin B12 Rash Current Outpatient Prescriptions on File Prior to Visit Medication Sig Dispense Refill Albuterol Sulfate (VENTOLIN HFA IN) Inhale 2 puffs into the lungs as needed. 108 mcg/ac t Cwkzs-Z-Rcbvxzrkzkuza (BEANO) TABS Take 150 Units by mouth 3 (three) times daily as nee ded (As needed for gas). amLODIPine (NORVASC) 10 MG tablet Take 1 tablet by mouth daily. 30 tablet 1 antipyrine-benzocaine (AURALGAN) otic solution Place 4 drops into both ears daily. ARIPiprazole (ABILIFY) 15 MG tablet Take 20 mg by mouth daily. aspirin 81 MG chewable tablet Take 1 tablet by mouth daily with breakfast. 30 tablet 0 calcium carbonate (TUMS) 500 MG chewable tablet Take 500-1,000 mg by mouth daily as nee ded. For GERD clonazePAM (KLONOPIN) 1 MG tablet Take 1 mg by mouth 2 (two) times daily as needed for Anxiety. clonidine (CATAPRES) Place 1 patch onto the skin once a week. 0.2mg/hr diltiazem (CARDIZEM CD) 240 MG 24 hr capsule Take 1 capsule by mouth daily. (Patient sb guthrie differently: Take 240 mg by mouth daily. 180 mg at hs) 15 capsule 0 docusate sodium (COLACE) 100 MG capsule Take 250 mg by mouth 2 (two) times daily. "Hold if loose stools" as noted on APR from pt's facility. fenofibrate (TRIGLIDE) 160 MG tablet Take 160 mg by mouth daily. furosemide (LASIX) 20 MG tablet Take 1 tablet by mouth daily. 7 tablet 0 gabapentin (NEURONTIN) 100 MG capsule Take 100 mg by mouth every evening. HYDROcodone-acetaminophen (NORCO) 5-325 MG per tablet Take 1 tablet by mouth every 6 (s ix) hours as needed for Pain. insulin glargine (LANTUS) 100 UNIT/ML injection Inject 82 Units into the skin nightly. 10 mL 12 lamoTRIgine (LAMICTAL) 100 MG tablet Take 100 mg by mouth nightly. tfzszubdb-hvodztur-bnwedmqma hydroxide-simethicone Take 40 mLs by mouth daily as needed . lisinopril (ZESTRIL) 40 MG tablet Take 40 mg by mouth every evening. LORazepam (ATIVAN) 1 MG tablet Take 1 [...] by mouth 2 (two) times daily. 60 ca psule 1 ondansetron (ZOFRAN-ODT) 4 MG disintegrating tablet Take 4 mg by mouth every 6 (six) ho urs as needed for Nausea. oxyCODONE-acetaminophen (PERCOCET) 5-325 MG per tablet Take 1 tablet by mouth every 6 ( six) hours as needed for Pain. paroxetine (PAXIL) 40 MG tablet Take 40 mg by mouth every morning. polyethylene glycol (GLYCOLAX) powder DISSOLVE 17GM IN LIQUID AND DRINK BY MOUTH EVERY DAY 527 g 5 pravastatin (PRAVACHOL) 20 MG tablet Take 20 mg by mouth nightly. psyllium (METAMUCIL SMOOTH [...] Inhale 18 mcg into the lungs daily. Current Facility-Administered Medications on File Prior to Visit Medication Dose Route Frequency Provider Last Rate Last Dose [DISCONTINUED] acetaminophen (TYLENOL) suppository 650 mg 650 mg Rectal Q6H PRN Maryann Jimenez MD [DISCONTINUED] acetaminophen (TYLENOL) tablet 650 mg 650 mg Oral Q6H PRN Edenilson Shearer ed, MD [DISCONTINUED] aluminum-magnesium hydroxide-simethicone (MAALOX) 200-200-20 MG/5ML susp ension 30 mL 30 mL Oral Q6H PRN Edenilson Jimenez MD [DISCONTINUED] amLODIPine (NORVASC) tablet 10 mg 10 mg Oral Daily Edenilson Jimenez MD 10 mg at 04/28/14899 [DISCONTINUED] ARIPiprazole (ABILIFY) tablet 20 mg 20 mg Oral Daily Emre Finley 20 mg at 04/28/14900 [DISCONTINUED] aspirin chewable tablet 81 mg 81 mg Oral Daily with breakfast Edenilson Jimenez MD 81 mg at 04/28/14903 [DISCONTINUED] atorvastatin (LIPITOR) tablet 10 mg 10 mg Oral Nightly Edenilson Jimenez MD [DISCONTINUED] cloNIDine (CATAPRES) 0.2 MG/24HR patch 1 patch 1 patch Transdermal Week ly Edenilson Jimenez MD [DISCONTINUED] dextrose 10 % infusion Intravenous Continuous PRN Edenilson Jimenez MD [DISCONTINUED] dextrose 50 % solution 12 mL 12 mL Intravenous PRN Edenilson Jimenez MD [DISCONTINUED] dextrose 50 % solution 25 mL 25 mL Intravenous PRN Edenilson Jimenez MD [DISCONTINUED] diltiazem (CARDIZEM CD) 24 hr capsule 240 mg 240 mg Oral Daily Edenilson Jimenez MD 240 mg at 04/28/14900 [DISCONTINUED] docusate calcium (SURFAK) capsule 240 mg 240 mg Oral BID Edenilson light MD 240 mg at 04/28/14899 [DISCONTINUED] enoxaparin (LOVENOX) injection 40 mg 40 mg Subcutaneous Q24H Edenilson Jimenez MD 40 mg at 04/28/14 0859 [DISCONTINUED] fenofibrate (TRICOR) tablet 54 mg 54 mg Oral Daily Edenilson Jimenez MD 54 mg at 04/28/14900 [DISCONTINUED] gabapentin (NEURONTIN) capsule 100 mg 100 mg Oral QPM Edenilson Jimenez MD [DISCONTINUED] glucagon (GLUCAGEN) injection 0.5 mg 0.5 mg Intramuscular PRN Edenilson Jimenez MD [DISCONTINUED] glucagon (GLUCAGEN) injection 1 mg 1 mg Intramuscular PRN Edenilson Shearer ed, MD [DISCONTINUED] HYDROcodone-acetaminophen (NORCO) 5-325 MG per tablet 1 tablet 1 tablet Oral Q6H PRN Edenilson Jimenez MD [DISCONTINUED] HYDROmorphone (DILAUDID) injection 0.5 mg 0.5 mg Intravenous Q3H PRN Mo paulette Jimenez MD [DISCONTINUED] HYDROmorphone (DILAUDID) injection 1 mg 1 mg Intravenous Q3H PRN Maryann Jimenez MD [DISCONTINUED] insulin aspart (NOVOLOG) injection 0-3 Units 0-3 Units Subcutaneous Nig htly Edenilson Jimenez MD [DISCONTINUED] insulin aspart (NOVOLOG) injection 0-6 Units 0-6 Units Subcutaneous TID AC Edenilson Jimenez MD 1 Units at 04/28/14 1248 [DISCONTINUED] insulin glargine (LANTUS) injection 82 Units 82 Units Subcutaneous Nigh tly Edenilson Jimenez MD [DISCONTINUED] lamoTRIgine (LaMICtal) tablet 100 mg 100 mg Oral Nightly Edenilson light MD [DISCONTINUED] lisinopril (ZESTRIL) tablet 40 mg 40 mg Oral QPM Edenilson Jimenez MD [DISCONTINUED] LORazepam (ATIVAN) injection 1 mg 1 mg Intravenous Q4H PRN Edenilson cano MD [DISCONTINUED] LORazepam (ATIVAN) tablet 1 mg 1 mg Oral Q4H PRN Edenilson Jimenez MD [DISCONTINUED] meclizine (ANTIVERT) tablet 25 mg 25 mg Oral TID PRN Emre Finley [DISCONTINUED] naproxen sodium (ANAPROX) tablet 220 mg 220 mg Oral BID WC Edenilson cano MD 220 mg at 04/28/14 0900 [DISCONTINUED] nitroGLYCERIN (NITROSTAT) SL tablet 0.4 mg 0.4 mg Sublingual Q5 Min PRN Edenilson Jimenez MD [DISCONTINUED] ondansetron (ZOFRAN) injection 4 mg 4 mg Intravenous Q6H PRN Edenilson Jimenez MD [DISCONTINUED] ondansetron (ZOFRAN) tablet 4 mg 4 mg Oral Q6H PRN Edenilson Jimenez MD [DISCONTINUED] oxyCODONE-acetaminophen (PERCOCET) 5-325 MG per tablet 1 tablet 1 table t Oral Q6H PRN Edenilson Jimenez MD [DISCONTINUED] pantoprazole (PROTONIX) EC tablet 40 mg 40 mg Oral QAM AC Edenilson Shearer ed, MD 40 mg at 04/28/14 0905 [DISCONTINUED] PARoxetine (PAXIL) tablet 40 mg 40 mg Oral QAM Edenilson Jimenez MD 40 mg at 04/28/14 0900 [DISCONTINUED] polyethylene glycol (GLYCOLAX) packet 17 g 17 g Oral Daily PRN Edenilson Jimenez MD [DISCONTINUED] sodium chloride 0.9 % infusion Intravenous Continuous Edenilson Jimenez MD 150 mL/hr at 04/28/14 1104 [DISCONTINUED] tamsulosin (FLOMAX) capsule 0.4 mg 0.4 mg Oral BID Edenilson Jimenez MD 0.4 mg at 04/28/14 0901 [DISCONTINUED] tiotropium (SPIRIVA) inhalation capsule 18 mcg 18 mcg Inhalation Daily Edenilson Jimenez MD 18 mcg at 04/28/14899 [DISCONTINUED] zolpidem (AMBIEN) tablet 5 mg 5 mg Oral Nightly PRN Edenilson Jimenez MD Family History Problem Relation Age of Onset Heart disease Father Heart disease Sister Diabetes type II Sister Heart Problems Brother PHYSICAL EXAM Vital Signs: There were no vitals taken for this visit. Physical Exam Constitutional: He appears well-developed and well-nourished. Cardiovascular: Normal rate and regular rhythm. Pulmonary/Chest: Effort normal and breath sounds normal. skin: Healing biopsy site radial aspect left forearm PROBLEM LIST Patient Active Problem List Diagnosis Diabetes mellitus, type 2 Chest pain HTN (hypertension) RUQ pain Cholelithiases Hypoxia WARD (obstructive sleep apnea) Fall at home Anxiety and depression CO2 retention Respiratory acidosis Neoplasm of uncertain behavior of skin Labile hypertension Basal cell carcinoma Renal azotemia History of GI bleed Development delay ARF (acute renal failure) COPD (chronic obstructive pulmonary disease) Paroxysmal atrial fibrillation Hyperlipidemia Chronic back pain Elevated d-dimer GERD without esophagitis Obesity, Class I, BMI 30-34.9 Near syncope Facial droop CKD (chronic kidney disease) RLQ abdominal pain Dehydration ASSESSMENT & PLAN Basal cell carcinoma left forearm. The patient will undergo excision. RCAPs discussed wit h him. Sy Fierro MD 04/29/2014 documented in thi s encounter Procedure Notes Conversion Transaction, Provider Unknown - 04/21/2014 12:32 PM PDTFormatting of this note m ight be different from the original. Pre-Procedure Instructions by Ale Alfaro RN at 04/21/14 1232 Author: Ale Alfaro RN Service: (none) Author Type: Registered Nurse Filed: 04/21/14 1237 Date of Service: 04/21/141231 Status: Signed Felt Cutter: Ale Alfaro RN (Registered Nurse) [facility]AYE from [facility] is on chart. onver ivana Transaction, Provider Unknown - 04/21/2014 9:48 AM PDT Pre-Procedure Instructions by Ale Alfaro RN at 04/21/14947 Author: Ale Alfaro RN Service: (none) Author Type: Registered Nurse Filed: 04/21/1454 Date of Service: 04/21/14947 Status: Signed Felt Cutter: Ale Alfaro RN (Registered Nurse) Spoke with EVE Carbone at [facility]--requested they fax MAR to us today. They st ate they will do. Faxed pre op instructions to them today, they will give patient a copy as well. Advised need CBC, BMP, and MRSA PCR drawn tomorrow when they do their blood draws and it needs to be stat. She stated to call [facility] to leave orders there. Spoke with Call ie at [facility] gave telephone order per anesthesia guidelines for MRSA PCR nasal swab, CBC, BMP to be done Monday as a stat order. Need result faxed abbey to [facility]. She states will do. docume nted in this encounter Miscellaneous Notes Op Note - Sy Fierro MD - 05/05/2014 9:12 AM PDT Op Note by Sy Fierro MD at 05/05/14911 Author: Sy Fierro MD Service: Plastic Surgery Author Type: Physician Filed: 05/05/14 9992 Date of Service: 05/05/14911 Status: Signed Felt Cutter: Sy Fierro MD (Physician) Related Notes: Original Note by Sy Fierro MD (Physician) filed at 05/05/14 0913 [facility] OPERATIVE NOTE PLASTIC SURGERY DEPT Name: Kevyn Guzman Age: 58 y.o. Todays Date: 05/05/2014 Time: 9:12 AM Procedure: Excision of basal cell carcinoma left radial forearm, 2 x 2 centimeters with co mplex closure of 5 cm wound Diagnoses: Pre-Op: Basal cell carcinoma left radial forearm Post-Op: Same Surgeon: Sy Fierro MD Anesthesia: Monitored anesthesia care Provider: Dr. Avery Estimated Blood Loss: Two cc Total IV Fluids: See anesthesia record. Complications: NONE Procedure Note: The patient was placed on the operating table in the supine position with appropriate neuro vascular padding. After sedation was established, the line of incision and plane of dissection were infiltrat ed with half and half Marcaine and lidocaine containing epinephrine. An axial ellipse of ski n and subcutaneous tissue was then excised which included the prior biopsy site. The proxima l margin was marked with a nylon suture and specimen was sent for frozen section evaluation which showed all margins were free of tumor. The periphery of the wound was then undermined extensively to allow for closure. Hemostasis was secured with electrocautery. The wound was closed in layers with 4-0 Vicryl and 5-0 nylon. A Steri-Strip with Benzoin was then applied. All sponge needle and Instrument counts were correct. The patient tolerated the procedure w ell and was discharged to the recovery room in stable condition. Sy Fierro MD has created this entry using [employer] Voice Recognition software and Particle macros. The entry has been reviewed and there may still exist sound alike word err ors. documented in thi s encounter Plan of Treatment +--------+ + + + + | Date | Type | Specialty | Care Team | Description | +--------+ + + + + | 10/16/ | Anti-coag | Anticoagulation | Brittany Zaragoza | | | 2020 | visit | | [address] | | | | | | [place], | | | | | | [place] [address] | | | | | | [phone] | | | | | | | | +--------+ + + + + documented as of this encounter Procedures + +--------+ + + + | Procedure Name | Priori | Date/Time | Associated Diagnosis | Comments | | | ty | | | | + +--------+ + + + | POC GLUCOSE | Routin | 05/05/2014 | | Results for this | | | e | 9:20 AM | | procedure are in the | | | | PDT | | results section. | + +--------+ + + + | POC GLUCOSE | Routin | 05/05/2014 | | Results for this | | | e | 6:53 AM | | procedure are in the | | | | PDT | | results section. | + +--------+ + + + | TISSUE REQUEST FOR | Routin | 05/05/2014 | | Results for this | | PATHOLOGY (NON-ORD) | e | 12:00 AM | | procedure are in the | | | | PDT | | results section. | + +--------+ + + + documented in this encounter Results POC Glucose (05/05/2014 9:20 AM PDT) + + + + + + | Component | Value | Ref Range | Performed | Pathologist | | | | | At | Signature | + + + + + + | Glucose, | 101 (H)Comment: Testing | 65 - 99 mg/dL | EXTERNAL | | | Fingerstick | performed at [facility] | | [address];[place], [place] | | | | | | [address] | | | | + + + + + + + + | Specimen | + + | | + + + +---------+ + + | Performing | Address | City/State/Zipcode | Phone Number | | Organization | | | | + +---------+ + + | EXTERNAL LAB | | | | + +---------+ + + POC Glucose (05/05/2014 6:53 AM PDT) + + + + + + | Component | Value | Ref Range | Performed | Pathologist | | | | | At | Signature | + + + + + + | Glucose, | 108 (H)Comment: Testing | 65 - 99 mg/dL | EXTERNAL | | | Fingerstick | performed at [facility] | | LAB | | | | [address];[place], [place] | | | | | | [address] | | | | + + + + + + + + | Specimen | + + | | + + + +---------+ + + | Performing | Address | City/State/Zipcode | Phone Number | | Organization | | | | + +---------+ + + | EXTERNAL LAB | | | | + +---------+ + + Tissue Request For Pathology (05/05/2014 12:00 AM PDT) + + | Specimen | + + | Soft tissue sample | | (specimen) | + + + + + | Narrative | Performed At | + + + | SPECIMEN(S): A BASAL CELL Ca Lt. ARM SPECIMEN SOURCE: A. LY | EXTERNAL LAB | | CELL Ca Lt. ARM CLINICAL HISTORY: 05/05/2014 at 0845 H. Basal cell | | | carcinoma left arm. FINAL PATHOLOGIC DIAGNOSIS: Skin, left arm, | | | reexcision: - Basal cell carcinoma - Previous | | | biopsy changes - The lesion appears to be completely | | | excised. MICROSCOPIC EXAMINATION: Histologic sections of all | | | submitted blocks are examined by light microscopy. These findings, | | | together with the gross examination, support the pathologic diagnosis. | | | The permanent sections confirm the frozen section diagnosis. GROSS | | | DESCRIPTION: The specimen is received fresh for frozen section | | | diagnosis labeled with the patient's name and designated "basal cell | | | carcinoma left arm" and consists of a 3.7 x 1.8 x 0.9 cm oriented skin | | | excision. A suture is present identifying the proximal margin and is | | | re-designated 12 o'clock. The specimen is inked as follows: | | | 12-3-6 o'clock black; 6-9 o'clock blue; 9-12 o'clock red. The | | | specimen is serially sectioned from 12-6 o'clock and entirely | | | submitted for frozen section, re-submitted as received in cassette | | | (FSA1). FM FROZEN SECTION DIAGNOSIS: DATE AND TIME: | | | 05/05/2014 at 0907 am REPORTED TO: Dr. Fierro | | | REPORTED BY: Dr. Morfin FROZEN DIAG: (FSA1) Margins | | | clear. (AMB) PERFORMING LABORATORY: Professional interpretation | | | and technical preparation was performed by [employer], [facility] | | | [address] [address] | | | (Renewals Manager: Jose Pierre M.D.; IA#: [id number]). | | | Diagnostician: Jose Pierre MD Pathologist Electronically Signed | | | 05/07/2014 | | + + + + +---------+ + + | Performing | Address | City/State/Zipcode | Phone Number | | Organization | | | | + +---------+ + + | EXTERNAL LAB | | | | + +---------+ + + documented in this encounter Visit Diagnoses + + | Diagnosis | + + | Neoplasm of uncertain behavior of skin | + + documented in this encounter
--- OUTSIDE RECORDS SUMMARY | ~2019-10-12 | XMS | Encounter Summary ---
Demographics + + + | Address | [address] | | | [place] [address] | + + + | Home Phone | | + + + | Preferred Language | Unknown | + + + | Marital Status | | + + + | Yarsani Affiliation | 1027 | + + + | Race | White | + + + | Ethnic Group | Not or | + + + Author + + + | Author | [facility] | | | and [place] | + + + | Organization | [facility] | | | and [place] | + + + | Address | Unknown | + + + | Phone | Unavailable | + + + Support + + + + + | Name | Relationship | Address | Phone | + + + + + | Sammi Kohler | ECON | [place] [address] | | + + + + + Care Team Providers + +------+ + | Care Railroad Firer Name | Role | Phone | + +------+ + | Mik Diego DO | PCP | | + +------+ + Reason for Visit + + + | Reason | Comments | + + + | Chest Pain | pt states he has been having cp and is in a-fib, "it's been going | | | on all day and I couldn't find anyone to bring me, I also think | | | my blood sugar is a little high" | + + + | Tachycardia | | + + + | High Blood Sugar | | | (Symptomatic) | | + + + Encounter Details +--------+ + + + + | Date | Type | Department | Care Team | Description | +--------+ + + + + | 10/10/ | Emergency | [facility] | Radha, | Chest pain in adult | | 2019 | | [facility] | [address] | (Primary Dx); | | | | EMERGENCY CENTER | [address] | Uncontrolled | | | | [address] | [place] [address] | hypertension; | | | | [place], [place] | [phone] | Numbness and | | | | [address] | | tingling of left | | | | [phone] | Norah Calvo MD | leg; Type 2 diabetes | | | | | [address] | mellitus with | | | | | [place] [address] | hyperglycemia, with | | | | | [phone] | long-term current | | | | [...] + + + | Blood Pressure | 195/93 | 10/10/2018 6:57 PM | | | | | PDT | | + + + + + | Pulse | 64 | 10/10/2018 6:57 PM | | | | | PDT | | + + + + + | Temperature | 36.7 C (98.1 F) | 10/10/2018 5:39 PM | | | | | PDT | | + + + + + | Respiratory Rate | 18 | 10/10/2018 6:57 PM | | | | | PDT | | + + + + + | Oxygen Saturation | 95% | 10/10/2018 6:57 PM | | | | | PDT | | + + + + + | Inhaled Oxygen | - | - | | | Concentration | | | | + + + + + | Weight | - | - | | + + + + + | Height | - | - | | + + + + + | Body Mass Index | - | - | | + + + + + documented in this encounter Functional Status + + + + | Functional Status | Response | Date of Assessment | + + + + | Are you deaf or do you have serious | No | 10/10/2018 | | difficulty hearing? | | | + + + + | Are you blind or do you have serious | No | 10/10/2018 | | difficulty seeing, even when wearing | | | | glasses? | | | + + + + | Do you have serious difficulty walking or | No | 10/10/2018 | | climbing stairs? (5 years old or older) | | | + + + + | Do you have difficulty dressing or bathing? | No | 10/10/2018 | | (5 years old or older) | | | + + + + | Because of a physical, mental, or emotional | No | 10/10/2018 | | condition, do you have difficulty [...] physical, mental, or emotional | No | 10/10/2018 | | condition, do you have serious difficulty | | | | concentrating, remembering, or making | | | | decisions? (5 years old or older) | | | + + + + documented as of this encounter Discharge Instructions Instructions Dianna Garcia PA-C - 10/10/2018Please see your primary care provide r at the next available appointment for further evaluation to discuss cardiac stress testing and echocardiogram as well as further evaluation of the leg tingling and pain. For pain or fever, take Tylenol 1000mg every 6 hours. Return to the ER for: fever, worsening chest pain, leg or arm weakness, or other new or wor sening symptoms. AttachmentsThe following attachments cannot be sent through Care Everywhere.High Blood Pres sure, Controlling (German)documented in this encounter Medications at Time of Discharge + + + +---------+ + + | Medication | Sig | Dispensed | Refills | Start | End Date | | | | | | Date | | + + + +---------+ + + | apixaban (ELIQUIS) | Take 1 tablet by | 60 | 3 | 09/15/19 | | | 5 mg tablet | mouth 2 (two) times | tablet | | 19 | 9 | | | daily. | | | | | + + + +---------+ + + | ARIPiprazole | Take 1 tablet by | 30 | 1 | 09/16/19 | | | (ABILIFY) 5 mg | mouth daily for 30 | tablet | | 19 | 9 | | tablet | days. | | | | | + + + +---------+ + + | aspirin 81 MG | Take 1 tablet by | 30 | 0 | 09/15/19 | | | tablet | mouth daily. | tablet | | 19 | 9 | + + + +---------+ + + | | Inhale 2 puffs into | 1 | 3 | 09/15/19 | | | budesonide-formotero | the lungs 2 (two) | Inhaler | | 19 | 9 | | l (SYMBICORT) | times daily. | | | | | | 160-4.5 mcg/puff | | | | | | | inhaler | | | | | | + + + +---------+ + + | carvedilol (COREG) | Take 1 tablet by | 60 | 3 | 09/15/19 | | | 6.25 mg tablet | mouth 2 (two) times | tablet | | 19 | 9 | | | daily with meals. | | | | | + + + +---------+ + + | fenofibrate 160 mg | Take 1 tablet by | 30 | 3 | 09/15/19 | | | tablet | mouth daily. | tablet | | 19 | 9 | + + + +---------+ + + | insulin aspart | Inject 12 Units into | | 0 | 09/22/19 | | | (NOVOLOG FLEXPEN) | the skin 3 (three) | | | 19 | 9 | | 100 units/mL | times daily before | | | | | | injection pen | meals. | | | | | + + + +---------+ + + | insulin detemir | Inject 40 Units into | 15 mL | 12 | 09/16/19 | | | (LEVEMIR FLEXTOUCH) | the skin every | | | 19 | 9 | | 100 units/mL | morning. | | | | | | injection (pen) | | | | | | + + + +---------+ + + | lisinopril | Take 10 mg by mouth | | 0 | 09/22/19 | | | (PRINIVIL, ZESTRIL) | daily. | | | 19 | 9 | | 10 mg tablet | | | | | | + + + +---------+ + + | metFORMIN | Take 1 tablet by | 60 | 3 | 08/10/20 | | | (GLUCOPHAGE) 500 mg | mouth 2 (two) times | tablet | | 19 | 9 | | tablet | daily with meals. | | | | | + + + +---------+ + + | NIFEdipine | Take 1 tablet by | 30 | 3 | 09/15/19 | | | (PROCARDIA XL) 60 mg | mouth daily. | tablet | | 19 | 9 | | ER tablet | | | | | | [...] Take 1 capsule by | 60 | 3 | 09/15/19 | | | (FLOMAX) 0.4 mg CAPS | mouth 2 (two) times | capsule | | 19 | 9 | | | daily. Administer 30 | | | | | | | minutes after the | | | | | | | same meal each day. | | | | | | | Capsules should be | | | | | | | swallowed whole; | | | | | + + + +---------+ + + documented as of this encounter ED Notes Ceasar Sequeira RN - 10/10/2018 5:32 PM PDTPatient is being seen with chief complaint of chest pain. Patient has been having intermittent chest pain Since 3 pm. Patient took one o f nitro. Blood sugar checked initially and it is 299. Dianna Gutiérrez PA-C - 10/10/2018 5:31 PM PDTForm atting of this note might be different from the original. [facility] Department of Emergency Medicine History of Present Illness Patient Identification Norah Gr is a 62 y.o. male. Patient information was obtained from patient and past medical records. History/Exam limitations: developmental delay. Patient presented to the Emergency Department by: Car Chief Complaint Chief Complaint Patient presents with Chest Pain pt states he has been having cp and is in a-fib, "it's been going on all day and I couldn 't find anyone to bring me, I also think my blood sugar is a little high" Tachycardia High Blood Sugar (Symptomatic) This is a 62 y.o. male, with paroxysmal atrial fibrillation and prior PE/DVT (Eliquis), HTN , ID T2DM, dyslipidemia, COPD, CKD, developmental delay, and mood disorders, who presents wi th multiple concerns: Pt states that, since 1500 this afternoon, he has experienced intermittent atrial fibrillat ion episodes, central chest pain and left leg and face numbness. The leg is also painful. He also has a mild headache and notes that his blood glucose is 299. Currently the pt rates hi s sx as moderate in severity. He took his morning and afternoon medications today. No fevers , SOB, significant cough, congestion, vomiting, back pain, abdominal pain, diarrhea, weaknes s, falls, head injury, or other. 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 Obesity, Class I, BMI 30-34.9 07/08/2013 WARD (obstructive sleep apnea) 08/11/2012 does not use CPAP because of the noise Other chronic pain Renal failure Stroke (HCC) TIA (transient ischemic attack) Unspecified visual disturbance reading glasses Past Surgical History: Procedure Laterality Date ABDOMEN SURGERY CHOLECYSTECTOMY CHOLECYSTECTOMY, LAPAROSCOPIC 09/12/2012 Procedure: LAPAROSCOPIC - CHOLECYSTECTOMY; Surgeon: Jevon Vargas DO; Location: [facility] MAIN OR; Service: General; Laterality: N/A; COLONOSCOPY COLONOSCOPY 03/04/2013 Procedure: COLONOSCOPY; Surgeon: Howie Gibson MD; Location: [facility] ENDOSCOPY; Service: Gastroen terology; Laterality: N/A; HERNIA REPAIR 07/03/2013 Procedure: LAPAROSCOPIC - HERNIA - INCISIONAL; Surgeon: Jevon Vargas DO; Location: [facility] MAIN OR; Service: General; Laterality: N/A; KNEE SURGERY rt knee, patella LEG SURGERY LLE OTHER SURGICAL HISTORY UNLISTED PROCEDURE ARTHROSCOPY OTHER SURGICAL HISTORY Left 05/05/2014 SKIN LESION EXCISION - Procedure: EXCISION - LESION - FROZEN SECTION; Surgeon: Sy murcia MD; Location: [facility] MAIN OR; Service: Plastics; Laterality: Left; forearm SKIN BIOPSY SKIN CANCER EXCISION Left 10/10/2012 Procedure: EXCISION - SKIN CANCER; Surgeon: Sy Fierro MD; Location: [facility] MAIN OR; Service: Plastics; Laterality: Left; upper arm and upper back w/frozen section UPPER GASTROINTESTINAL ENDOSCOPY UPPER GASTROINTESTINAL ENDOSCOPY 03/03/2013 Procedure: ESOPHAGOGASTRODUODENOSCOPY; Surgeon: Howie Gibson MD; Location: [facility] ENDOSCOPY; Se rvice: Gastroenterology; Laterality: N/A; Prior to Admission medications Medication Sig Start Date End Date Taking? Authorizing Provider apixaban (ELIQUIS) 5 mg tablet Take 1 tablet by mouth 2 (two) times daily. 09/14/18 Noble cabral MD ARIPiprazole (ABILIFY) 5 mg tablet Take 1 tablet by mouth daily for 30 days. 09/15/18 10/15/18 Noble Conteh MD aspirin 81 MG tablet Take 1 tablet by mouth daily. 09/14/18 Noble Conteh MD budesonide-formoterol (SYMBICORT) 160-4.5 mcg/puff inhaler Inhale 2 puffs into the lungs 2 (two) times daily. 09/14/18 09/14/19 Noble Conteh MD carvedilol (COREG) 6.25 mg tablet Take 1 tablet by mouth 2 (two) times daily with meals. 09/14/1809/14/19 Noble Conteh MD fenofibrate 160 mg tablet Take 1 tablet by mouth daily. 09/14/18 Noble Conteh MD insulin aspart (NOVOLOG FLEXPEN) 100 units/mL injection pen Inject 12 Units into the skin 3 (three) times daily before meals. 09/21/18 Provider Unknown Conversion Transaction insulin detemir (LEVEMIR FLEXTOUCH) 100 units/mL injection (pen) Inject 40 Units into the s kin every morning. 09/15/18 09/15/19 Noble Conteh MD lisinopril (PRINIVIL, ZESTRIL) 10 mg tablet Take 10 mg by mouth daily. 09/21/18 Provider [place] Conversion Transaction metFORMIN (GLUCOPHAGE) 500 mg tablet Take 1 tablet by mouth 2 (two) times daily with meals. 09/15/18 09/15/19 Noble Conteh MD NIFEdipine (PROCARDIA XL) 60 mg ER tablet Take 1 tablet by mouth daily. 09/14/18 09/14/19 Pilar Conteh MD pravastatin (PRAVACHOL) 80 MG tablet Take 80 mg by mouth nightly. 08/11/12 Provider Unknown Conversion Transaction tamsulosin (FLOMAX) 0.4 mg CAPS Take 1 capsule by mouth 2 (two) times daily. Administer 30 minutes after the same meal each day. Capsules should be swallowed whole; 09/14/18 Noble lara MD Allergies Allergen Reactions Vitamin B12 Rash Rash Social History Socioeconomic History Marital status: Spouse name: Not on file Number of children: 1 Years of education: s. college Highest education level: Not on file Social Needs Financial resource strain: Not on file Food insecurity - worry: Not on file Food insecurity - inability: Not on file Transportation needs - medical: Not on file Transportation needs - non-medical: Not on file Occupational History Not on file Tobacco Use Smoking status: Never Smoker Substance and Sexual Activity Alcohol use: Not on file Comment: Alcoholic Drinks/day: occassional Drug use: Not on file Comment: Drug use: No Sexual activity: Not on file Other Topics Concern Not on file Social History Narrative Lives alone x 1 wk, moved from [facility], , 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 2 falls in the last 6 months. Family History Problem Relation Age of Onset Heart disease Father Heart disease Sister Diabetes, NIDDM Sister Other (see comment) Brother Heart Problems PCP: Mik Diego, Review of Systems Constitutional: Negative for: fever or chills Eyes: Negative for: eye pain Ears: Negative for: ear pain Nose: Negative for: congestion Throat: Negative for: sore throat Cardiovascular/Respiratory: Positive for: chest pain, palpitations. Negative for: cough, SO B Gastrointestinal: Negative for: abdominal pain, vomiting, diarrhea Musculoskeletal: Negative for: new back pain Skin: Negative for: rash Neuro and psych: Positive for: headache, leg and face numbness Physical Exam Pulse Oximetry interpretation: normal Initial VS interpretation: grossly hypertensive, normal HR, tachypneic, afebrile Patient Vitals for the past 24 hrs: BP Temp Temp src Pulse Resp SpO2 10/10/18 1857 (!) 195/93 64 18 95 % 10/10/18 1813 172/81 66 16 10/10/18 1808 193/86 63 10/10/18 1739 (!) 219/114 36.7 C (98.1 F) Oral 74 24 96 % General: Alert, non-toxic appearing, NAD, semi-recumbent on [facility] HEENMT: Head: atraumatic, normocephalic Eyes: Normal inspection, PERRL, non-icteric, no injection, EOMI, no nsytagmus Ears: normal external inspection Nose: atraumatic, no drainage Mouth/throat: MMM, uvula and tongue midline Neck: Normal inspection Supple, no meningeal signs Cardiovascular: Regular rate and rhythm No murmurs, rubs or gallops Good cap refill, strong and equal radial pulses No LE edema or erythema or palpable cord Good L DP pulse, warm, not mottled Respiratory: No respiratory distress Breath sounds normal though distant bilaterally No wheezes, crackles or rubs Abdomen: Obese, no abdominal distension No guarding Soft, non-tender in all quadrants MSK: Back: normal inspection Extremities: atraumatic, moving all independently Skin: Color normal, warm and dry No rash on extremities or face Neuro: CNII-XII intact, A&Ox4 No facial droop or slurred speech No motor deficit to UEs and LEs, 5/5 in each Intact sensation to light touch though reportedly 30% of normal in the LLE and L face No AMS or lethargy No ataxia, neg pronator drift Medical Decision Making and Emergency Department Course ED Department Course This 62 y.o. male presents for chest pain and leg numbness. DDx includes but is not limited to: CVA, ICH, ACS, aortic aneurysm vs dissection, dysrhythmia, pneumonia, pneumothorax, anx iety disorder, intraabdominal process, electrolyte disorder, severe anemia Pt is grossly hypertensive. Neuro exam is normal other than subjective sensory deficit in t he left face and L lower leg. He has slight central chest pain at this time as well as heada kylee. He takes Pradaxa. Will proceed with work-up and symptom control and reassess. Labs: CBC, CMP, troponin, serum ketones Imaging: CXR, CT head ECG and software support specialist Medication: Labetalol Discussed case with Dr. Calvo who agrees with this plan. Echo on 10/17/17 shows hyperdynamic LV: 1. A limited 2-dimensional transthoracic echocardiogram with limited spectral and color huyen w Doppler was performed. 2. Left ventricular systolic function is hyperdynamic with an estimated EF of >70%. 3. No EDUARDO. There is a mild resting LVOT gradient, measured at 15 mm Hg on the previous st udy. On the current study, it was evaluated Valsalva, and increases to only 19 mm Hg. Th ere is no signficant LVOT obstruction. 4. The right ventricle is normal in size and function. ECG time: 1727 Sinus rhythm at 76bpm Normal axis Normal RICHARD, QRS; mildly prolonged QTc (470) duration No significant Q waves, ST segment or T wave abnormalities Unchanged from ECG on 09/21/[address] Calvo CBC without leukocytosis, anemia or platelet disorder. CMP shows hyperglycemia (327) and elevated alk phos (128); no other electrolyte abnormality or kidney or liver dysfunction. Serum ketones negative. Troponin negative. CXR negative: Negative chest. Signed by: Irina Wynne Peter Sign Date/Time: 10/10/2018 6:[address] head without acute pathology; left frontal sinusitis: 1. No acute intracranial findings to explain left leg numbness. 2. Mucosal thickening seen in the frontal and ethmoid sinuses. The left frontal sinus in particular is completely opacified with fluid which may be a source of headache. Signed by: Staci Lau Edward Sign Date/Time: 10/10/2018 6:31 PM Reassessed pt. He is flustered and wants to know why his sx are occurring. Discussed result s. HEART score is 3. Pt seen 3 times in the last 1 month for similar sx and was admitted 3.5 weeks ago. Will trend troponin. Repeat troponin remains negative and unchanged. Pt has appt with PCP in 2 weeks. Discussed reasons to return to the ED. No rx. All questions and concerns answered to the best of my ability. Patient expresses understand ing, comfort and appreciation of plan of care. Discussed case with Dr. Calvo who agrees with this plan. Records Reviewed Old medical records. Previous electrocardiograms. Nursing notes. Previous radiology studies. Laboratory Evaluation Results Procedure Component Value Ref Range Date/Time Troponin I [[id number]] Collected: 10/10/18 1902 Order Status: Completed Specimen: Blood Updated: 10/10/18 1934 Troponin T 0.034 0.00 - 0.04 ng/mL Comprehensive Metabolic Panel [[id number]] (Abnormal) Collected: 10/10/18 1736 Order Status: Completed Specimen: Blood Updated: 10/10/18 1811 Na 140 135 - 145 mmol/L K 3.9 3.5 - 4.9 mmol/L Cl 103 99 - 109 mmol/L CO2 27 23 - 32 mmol/L Anion Gap 14 5 - 20 mmol/L Glucose 327 65 - 99 mg/dL BUN 12 8 - 25 mg/dL Creatinine 1.16 0.70 - 1.30 mg/dL BUN/Creatinine Ratio 10 Calcium 8.9 8.5 - 10.5 mg/dL Protein, Total 6.8 6.3 - 8.2 g/dL Albumin 3.9 3.3 - 4.8 g/dL Globulin 2.9 1.3 - 4.9 g/dL A/G Ratio 1.3 1.0 - 2.4 BILIRUBIN, TOTAL 0.3 0.1 - 1.5 mg/dL ALK PHOS 128 35 - 115 U/L AST 30 10 - 45 U/L ALT 22 10 - 65 U/L Estimated GFR >60 >60 mL/min/1.73m2 Troponin I [[id number]] Collected: 10/10/181735 Order Status: Completed Specimen: Blood Updated: 10/10/18 1811 Troponin T 0.034 0.00 - 0.04 ng/mL Ketones, Serum [[id number]] Collected: 10/10/181735 Order Status: Completed Specimen: Blood Updated: 10/10/18 1801 Ketones, Blood NEGATIVE NEG CBC with Differential [[id number]] (Abnormal) Collected: 10/10/181735 Order Status: Completed Specimen: Blood Updated: 10/10/18 1759 WBC 10.23 3.80 - 11.00 K/uL RBC 5.40 4.20 - 5.70 M/uL Hemoglobin 15.6 13.2 - 17.0 g/dL Hematocrit 45.5 39.0 - 50.0 % MCV 84.3 80.0 - 100.0 fl MCH 28.8 27.0 - 34.0 pg MCHC 34.1 32.0 - 35.5 g/dL RDW-SD 42.0 37 - 53 fl Platelet Count 237 150 - 400 K/uL MPV 7.8 fl Diff Type AUTOMATED % Neutrophils 46.41 % % Lymphocytes 38.02 % Monocyte % 8.63 % Eosinophils % 6.14 % Basophils % 0.80 % Neutrophils, Absolute 4.75 1.90 - 7.40 K/uL Absolute Lymphocytes 3.89 1.00 - 3.90 K/uL Absolute Monocytes 0.88 0.00 - 0.80 K/uL Eosinophils, Absolute 0.63 0.00 - 0.50 K/uL Basophils, Absolute 0.08 0.00 - 0.10 K/uL POC Glucose [[id number]] (Abnormal) Collected: 10/10/181734 Order Status: Completed Updated: 10/10/181737 Glucose, POC 299 65 - 99 mg/dL Radiology Evaluation Xr Chest Pa And Lateral Result Date: 10/10/2018 CHEST PA AND LATERAL CLINICAL INFORMATION: Chest pain. COMPARISON: CTA CHEST PULMONARY EMBO LISM W CONTRAST (09/21/2018); XR CHEST 2 VIEW FRONTAL AND LATERAL (09/21/2018); XR CHEST 2 VIE W FRONTAL AND LATERAL (09/16/2018); FINDINGS: Heart, lungs and vessels normal. No pneumothora x, pleural effusion or adenopathy. No significant bone abnormality. IMPRESSION: Negative kylee st. Signed by: Irina Wynne Peter Sign Date/Time: 10/10/2018 6:[address] Head Wo Contrast Result Date: 10/10/2018 CT HEAD WITHOUT CONTRAST CLINICAL INFORMATION: Headache. Left leg numbness. COMPARISON: CT HEAD WO CONTRAST (05/12/2018); CT HEAD WO CONTRAST (06/25/2016); MRI BRAIN WO AND MRA HEAD (12/2016); PROCEDURE: Axial images were obtained through the head without IV contrast. Multip lanar reformations were obtained from the acquisition data. At least one of the following CT dose optimization techniques were used: Automated exposure control; Adjustment of mA and/or kV according to patient size; Use of iterative reconstruction technique. FINDINGS: Brain: N o intracranial hemorrhage, midline shift or pathologic mass effect. No cerebral edema, mass lesion, or evidence of acute infarct. Ventricles and extra-axial fluid spaces: Normal. Paran josiah sinuses and mastoid air cells: The paranasal sinuses demonstrate mucosal thickening and fluid in the frontal sinuses, anterior right ethmoid air cells and posterior left ethmoid a ir cells. A left-sided jerome bullosa is noted. The maxillary sinuses and sphenoid sinuses are normally aerated. The mastoid air cells are normally aerated. Bilateral cerumen impact ion is seen in the external auditory canals. Calvarium and extracranial soft tissues: Normal . Orbits: Imaged portions of the orbits are normal. IMPRESSION: 1. No acute intracranial fin dings to explain left leg numbness. 2. Mucosal thickening seen in the frontal and ethmoid si nuses. The left frontal sinus in particular is completely opacified with fluid which may be a source of headache. Signed by: Staci Lau Edward Sign Date/Time: 10/10/2018 6:31 PM Diagnosis & Disposition Final diagnoses: Chest pain in adult Uncontrolled hypertension Numbness and tingling of left leg Type 2 diabetes mellitus with hyperglycemia, with long-term current use of insulin ([facility]) ED Disposition ED Disposition Condition Comment Discharge Stable Follow-up Information Schedule an appointment as soon as possible for a visit with Mik Diego DO. Specialty: Family Medicine Why: For recheck after your ER visit, For further evaluation and management Contact information: [address] [facility] [id number] Go to [facility]. Specialty: Emergency Medicine Why: As needed if symptoms worsen Contact information: [address] [place] [phone] Discharge Medications: ED Prescriptions None Dianna Garcia PA-C 10/10/182012 Associated attestation - Norah Calvo MD - 10/10/2018 9:10 PM PDTI have reviewed the p atients chart and was available for consultation as needed. documented in this encounter Plan of Treatment +--------+ + + + + | Date | Type | Specialty | Care Team | Description | +--------+ + + + + | 10/16/ | Anti-coag | Anticoagulation | LeeladanielBrittany | | | 2019 | visit | | [address] | | | | | | [facility] [place], | | | | | | [place] [address] | | | | | | [phone] | | | | | | | | +--------+ + + + + + +------+--------+ + + | Name | Type | Priori | Associated Diagnoses | Date/Time | | | | ty | | | + +------+--------+ + + | ED INFORMATION | COLTON | Routin | | 10/10/2018 5:26 PM | | EXCHANGE | | e | | PDT | + +------+--------+ + + documented as of this encounter Procedures + +--------+ + + + | Procedure Name | Priori | Date/Time | Associated Diagnosis | Comments | | | ty | | | | + +--------+ + + + | TROPONIN I | STAT | 10/10/2018 | | Results for this | | | | 7:02 PM | | procedure are in the | | | | PDT | | results section. | + +--------+ + + + | XR CHEST PA AND | ESCOBAR | 10/10/2018 | | Results for this | | LATERAL | | 6:31 PM | | procedure are in the | | | | PDT | | results section. | + +--------+ + + + | CT HEAD WO CONTRAST | STAT | 10/10/2018 | | Results for this | | | | 6:23 PM | | procedure are in the | | | | PDT | | results section. | + +--------+ + + + | TROPONIN I | STAT | 10/10/2018 | | Results for this | | | | 5:36 PM | | procedure are in the | | | | PDT | | results section. | + +--------+ + + + | KETONEJose,SERUM | STAT | 10/10/2018 | | Results for this | | | | 5:36 PM | | procedure are in the | | | | PDT | | results section. | + +--------+ + + + | CBC WITH | STAT | 10/10/2018 | | Results for this | | DIFFERENTIAL | | 5:36 PM | | procedure are in the | | | | PDT | | results section. | + +--------+ + + + | COMPREHENSIVE | STAT | 10/10/2018 | | Results for this | | METABOLIC PANEL | | 5:36 PM | | procedure are in the | | | | PDT | | results section. | + +--------+ + + + | POC GLUCOSE (NON | Routin | 10/10/2018 | | Results for this | | ORD) | e | 5:35 PM | | procedure are in the | | | | PDT | | results section. | + +--------+ + + + | ECG 12 LEAD | Routin | 10/10/2018 | | Results for this | | | e | 5:27 PM | | procedure are in the | | | | PDT | | results section. | + +--------+ + + + | ED INFORMATION | Routin | 10/10/2018 | | | | EXCHANGE | e | 5:26 PM | | | | | | PDT | | | + +--------+ + + + +---+--------+ | | | | | Proced | | | ure | | | Note - | | | Richard, | | | Lab In | | | | | | Hlseve | | | n - | | | /04/ | | | 2019 | | | 5:27 | | | PM PDT | | [...] | | | FICATI | | | ON?09/ | | | 04/201 | | | 9 | | | 17:26? | | | GR, | | | NORAH | | | | | | M?MRN: | | | | | | [id number] | | | [id number] | | | riteri | | | [...] | | | (12 | | | Mo.)PD | | | MP | | | query | | | found | | | no | | | report | | | .E.D. | | | Visit | | | [...] | | 10 0 | | | [facility] | | | s | | | [facility] | | | l | | | Center | | | 18 0 | | | [place] | | [...] | | int | | | Sep 4, | | | 2019 | | | [facility] | | | | | | [facility] | | | al | | | [facility] | | | [place] | | | [place] | | | Emerge | | | ncy | | | Aug | | | [...] | | | BP | | | Rocco 3, | | | 2019 | | | [facility] | | | [place] | | | idge | | | H. | | | [place] | | | [place] | | | Emerge | | | ncy | | | Chief | | | Compla | | | int: | | | CHEST | | | PAIN | | | Palmer | | | 23, | | | 2019 | | | [facility] | | | s [facility] | | | [place] | | | [place] | | | Emerge | | | ncy | | | Chief | | | Compla | | | int: | | | CHEST | | | PAIN, | | | HARD | | | TO | | | BREATH | | | | | | Recent [...] | | | PAIN | | | Sep 7, | | | 2018 | | | [facility] | | | | | | Region | | | al | | | [facility] | | | [place] | | | [place] | | | Genera | | | l | | | Medici | | | ne | | | Disord | | | er of | | | white | | | blood | | | cells, | | | | | | unspec | | | ified | | | | | | Shortn | | | ess of | | | | | | breath | | | | | | Abnorm | | | al | | | electr | | | ocardi | | | ogram | | | [ECG] | | | [EKG] | | | | | | Chest | | | pain, | | | unspec | | | ified | | | | | | Paroxy | | | smal | | | atrial | | | | | | fibril | | | lation | | | | | | Obstru | | | ctive | | | sleep | | | apnea | | | (adult | | | ) | | | (pedia | | | tric) | | | | | | Essent | | | ial | | | (prima | | | ry) | | | hypert | | | ension | | | | | | Other | | | pulmon | | | ankur | | | emboli | | | sm | | | withou | | | t | | | acute | | | cor | | | pulmon | | | xin | | | Care | | | TeamTh | | | ere | | | are no | | | care | | | provid | | | ers on | | | | | | record | | | at | | | this | | | time. | | | Collec | | | [...] | | | /notif | | | [id number] | | | [id number] | | | [id number] | | | [id number] | | | [id number] | | | [id number] | | | 9d | | | PLEASE | | | [...] | +---+--------+ documented in this encounter Results Troponin I (10/10/2018 7:02 PM PDT) + + + + + + | Component | Value | Ref Range | Performed | Pathologist | | | | | At | Signature | + + + + + + | Troponin I | 0.034Comment: 0.04 | 0.00 - 0.04 | [facility] | | | | ng/mL or less [...] at | | | | | | [facility];[address] [facility] | | | | | | [facility];[place] [address] | | | | + + + + + + + + | Specimen | + + | Blood | + + + + + + + | Performing | Address | City/State/Zipcode | Phone Number | | Organization | | | | + + + + + | [facility] | [address] | [place] [address] | [phone] | + + + + + XR Chest PA and Lateral (10/10/2018 6:31 PM PDT) + + | Specimen | + + | | + + + + + | Narrative | Performed At | + + + | CHEST PA AND LATERAL CLINICAL INFORMATION: Chest pain. | [facility] | | COMPARISON: CTA CHEST PULMONARY EMBOLISM W CONTRAST (09/21/2018); XR | | | CHEST 2 VIEW FRONTAL AND LATERAL (09/21/2018); XR CHEST 2 VIEW FRONTAL | | | AND LATERAL (09/16/2018); FINDINGS: Heart, lungs and vessels | | | normal. No pneumothorax, pleural effusion or adenopathy. No | | | significant bone abnormality. IMPRESSION: Negative chest. | | | Signed by: Irina Wynne Peter Sign Date/Time: 10/10/2018 6:34 | | | PM | | + + + + + | Procedure Note | + + | Richard, Rad Results In - 10/10/2018 6:37 PM PDT | | CHEST PA AND LATERAL | | | | CLINICAL INFORMATION: | | Chest pain. | | | | COMPARISON: | | CTA CHEST PULMONARY EMBOLISM W CONTRAST (09/21/2018); XR CHEST 2 VIEW | | FRONTAL AND LATERAL (09/21/2018); XR CHEST 2 VIEW FRONTAL AND LATERAL | | (09/16/2018); | | | | FINDINGS: | | Heart, lungs and vessels normal. No pneumothorax, pleural effusion or | | adenopathy. No significant bone abnormality. | | | | IMPRESSION: | | Negative chest. | | | | | | | | Signed by: Irina Wynne Peter | | Sign Date/Time: 10/10/2018 6:34 PM | + + + +---------+ + + | Performing | Address | City/State/Zipcode | Phone Number | | Organization | | | | + +---------+ + + | [facility] | | | | + +---------+ + + CT Head wo Contrast (10/10/2018 6:23 PM PDT) + + | Specimen | + + | | + + + + + | Narrative | Performed At | + + + | CT HEAD WITHOUT CONTRAST CLINICAL INFORMATION: Headache. | [facility] | | Left leg numbness. COMPARISON: CT HEAD WO CONTRAST (05/12/2018); | | | CT HEAD WO CONTRAST (06/25/2016); MRI BRAIN WO AND MRA HEAD | | | (06/16/2016); PROCEDURE: Axial images were obtained through the [...] | | iterative reconstruction technique. FINDINGS: Brain: No | | | intracranial hemorrhage, midline shift or pathologic mass effect. No | | | cerebral edema, mass lesion, or evidence of acute infarct. | | | Ventricles and extra-axial fluid spaces: Normal. Paranasal sinuses | | | and mastoid air cells: The paranasal sinuses demonstrate mucosal | | | thickening and fluid in the frontal sinuses, anterior right ethmoid | | | air cells and posterior left ethmoid air cells. A left-sided jerome | | | bullosa is noted. The maxillary sinuses and sphenoid sinuses are | | | normally aerated. The mastoid air cells are normally aerated. | | | Bilateral cerumen impaction is seen in the external auditory | | | canals. Calvarium and extracranial soft tissues: Normal. | | | Orbits: Imaged portions of the orbits are normal. IMPRESSION: 1. | | | No acute intracranial findings to explain left leg numbness. 2. | | | Mucosal thickening seen in the frontal and ethmoid sinuses. The | | | left frontal sinus in particular is completely opacified with fluid | | | which may be a source of headache. Signed by: Judi | | | Vargas Small Sign Date/Time: 10/10/2018 6:31 PM | | + + + + + | Procedure Note | + + | Richard, Rad Results In - 10/10/2018 6:35 PM PDT | | CT HEAD WITHOUT CONTRAST | | | | CLINICAL INFORMATION: | | Headache. Left leg numbness. | | | | COMPARISON: | | CT HEAD WO CONTRAST (05/12/2018); CT HEAD WO CONTRAST (06/25/2016); MRI | | BRAIN WO AND MRA HEAD (06/16/2016); | | | | PROCEDURE: | | [...] | Paranasal sinuses and mastoid air cells: The paranasal sinuses | | demonstrate mucosal thickening and fluid in the frontal sinuses, | | anterior right ethmoid air cells and posterior left ethmoid air cells. | | A left-sided jerome bullosa is noted. The maxillary sinuses and | | sphenoid sinuses are normally aerated. The mastoid air cells are | | normally aerated. Bilateral cerumen impaction is seen in the external | | auditory canals. | | | | Calvarium and extracranial soft tissues: Normal. | | | | Orbits: Imaged portions of the orbits are normal. | | | | IMPRESSION: | | 1. No acute intracranial findings to explain left leg numbness. | | 2. Mucosal thickening seen in the frontal and ethmoid sinuses. The | | left frontal sinus in particular is completely opacified with fluid | | which may be a source of headache. | | | | | | | | | | Signed by: Staci Lau Edward | | Sign Date/Time: 10/10/2018 6:31 PM | + + + +---------+ + + | Performing | Address | City/State/Zipcode | Phone Number | | Organization | | | | + +---------+ + + | [facility] | | | | + +---------+ + + Ketones, Serum (10/10/2018 5:36 PM PDT) + + + + + + | Component | Value | Ref Range | Performed | Pathologist | | | | | At | Signature | + + + + + + | Ketones, | NEGATIVEComment: Testing | NEG | [facility] | | | Blood | performed at [facility];[address] | | LABORATORY | | | | [address];[place], [place] | | | | | | [address] | | | | + + + + + + + + | Specimen | + + | Blood | + + + + + + + | Performing | Address | City/State/Zipcode | Phone Number | | Organization | | | | + + + + + | [facility] | [address] | [place] [address] | [phone] | + + + + + Troponin I (10/10/2018 5:36 PM PDT) + + + + + + | Component | Value | Ref Range | Performed | Pathologist | | | | | At | Signature | + + + + + + | Troponin I | 0.034Comment: 0.04 | 0.00 - 0.04 | [facility] | | | | ng/mL or less [...] at | | | | | | [facility];[address] | | | | | | [facility];[place] [address] | | | | + + + + + + + + | Specimen | + + | Blood | + + + + + + + | Performing | Address | City/State/Zipcode | Phone Number | | Organization | | | | + + + + + | [facility] | [address] | [place] [address] | [phone] | + + + + + Comprehensive Metabolic Panel (10/10/2018 5:36 PM PDT) + + + + + [...] + + + + | Cl | 103 | 99 - 109 mmol/L | [facility] | | | | | | LABORATORY | | + + + + + + | CO2 | 27 | 23 - 32 mmol/L | [facility] | | | | | | LABORATORY | | + + + + + + | Anion Gap | 14 | 5 - 20 mmol/L | [facility] | | | | | | LABORATORY | | + + + + + + | Glucose | 327 (H) | 65 - 99 mg/dL | [facility] | | | | | | LABORATORY | | + + + + + + | BUN | 12 | 8 - 25 mg/dL | [facility] | | | | | | LABORATORY | | + + + + + + | Creatinine | 1.16 | 0.70 - 1.30 | [facility] | | | | | mg/dL | LABORATORY | | + + + + + + | BUN/Creatin | 10 | | [facility] | | | ine Ratio | | | LABORATORY | | + + + + + + | Calcium | 8.9 | 8.5 - 10.5 | [facility] | [...] + + + + | BILIRUBIN, | 0.3 | 0.1 - 1.5 mg/dL | [facility] | | | TOTAL | | | LABORATORY | | + + + + + + | ALK PHOS | 128 (H) | 35 - 115 U/L | [facility] | | | | | | LABORATORY | | + + + + + + | AST | 30 | 10 - 45 U/L | [facility] | | | | | | LABORATORY | | + + + + + + | ALT | 22 | 10 - 65 U/L | [facility] | | | | | [...] | | | | | performed at [facility] | | | | | | [facility];[place], [place] | | | | | | [address] | | | | + + + + + + + + | Specimen | + + | Blood | + + + + + + + | Performing | Address | City/State/Zipcode | Phone Number | | Organization | | | | + + + + + | [facility] | [address] | [place] [address] | [phone] | + + + + + CBC with Differential (10/10/2018 5:36 PM PDT) + + + + + + | Component | Value | Ref Range | Performed | Pathologist | | | | | At | Signature | + + + + + + | WBC | 10.23 | 3.80 - 11.00 | [facility] | | | | | K/uL | LABORATORY | | + + + + + + | Red Blood | 5.40 | 4.20 - 5.70 | [facility] | | | Cells | | M/uL | LABORATORY | | + + + + + + | Hemoglobin | 15.6 | 13.2 - 17.0 | [facility] | | | | | g/dL | LABORATORY | | + + + + + + | Hematocrit | 45.5 | 39.0 - 50.0 % | [facility] | | | | | | LABORATORY | | + + + + + + | MCV | 84.3 | 80.0 - 100.0 fl | [facility] | | | | | | LABORATORY | | + + + + + + | MCH | 28.8 | 27.0 - 34.0 pg | [facility] | | | | | | LABORATORY | | + + + + + + | MCHC | 34.1 | 32.0 - 35.5 | [facility] | | | | | g/dL | LABORATORY | | + + + + + + | RDW-SD | 42.0 | 37 - 53 fl | [facility] | | | | | | LABORATORY | | + + + + + + | Platelet | 237 | 150 - 400 K/uL | [facility] | | | Count | | | LABORATORY | | + + + + + + | MPV | 7.8 | fl | [facility] | | | | | | LABORATORY | | + + + + + + | Diff Type | AUTOMATED | | [facility] | | | | | | LABORATORY | | + + + + + + | % | 46.41 | % | [facility] | | | Neutrophils | | | LABORATORY | | + + + + + + | % | 38.02 | % | [facility] | | | Lymphocytes | | | LABORATORY | | + + + + + + | Monocyte % | 8.63 | % | [facility] | | | | | | LABORATORY | | + + + + + + | Eosinophils | 6.14 | % | [facility] | | | % | | | LABORATORY | | + + + + + + | Basophils % | 0.80 | % | [facility] | | | | | | LABORATORY | | + + + + + + | Neutrophils | 4.75 | 1.90 - 7.40 | [facility] | | | , Absolute | | K/uL | LABORATORY | | + + + + + + | Absolute | 3.89 | 1.00 - 3.90 | [facility] | | | Lymphocytes | | K/uL | LABORATORY | | + + + + + + | Absolute | 0.88 (H) | 0.00 - 0.80 | [facility] | | | Monocytes | | K/uL | LABORATORY | | + + + + + + | Eosinophils | 0.63 (H) | 0.00 - 0.50 | [facility] | | | , Absolute | | K/uL | LABORATORY | | + + + + + + | Basophils, | 0.08Comment: Testing | 0.00 - 0.10 | [facility] | | | Absolute | performed at [facility];[address] | [address] | LABORATORY | | | | [facility];[place], [place] | | | | | | [address] | | | | + + + + + + + + | Specimen | + + | Blood | + + + + + + + | Performing | Address | City/State/Zipcode | Phone Number | | Organization | | | | + + + + + | [facility] | [address] | [place] [address] | [phone] | + + + + + POC Glucose (10/10/2018 5:35 PM PDT) + + + + + + | Component | Value | Ref Range | Performed | Pathologist | | | | | At | Signature | + + + + + + | Glucose, | 299 (H)Comment: Testing | 65 - 99 mg/dL | [facility] | | | POC | performed at [facility];[address] | LABORAT[address] | | | [address];[place] | | | | | | [address] | | | | + + + + + + + + | Specimen | + + | | + + + + + + + | Performing | Address | City/State/Zipcode | Phone Number | | Organization | | | | + + + + + | [facility] | [address] | [place] [address] | [phone] | + + + + + ECG 12 lead (10/10/2018 5:27 PM PDT) + + + + + + | Component | Value | Ref Range | Performed | Pathologist | | | | | At | Signature | + + + + + + | VENTRICULAR | 76 | BPM | [facility] | | | RATE EKG | | | | | + + + + + + | ATRIAL RATE | 76 | BPM | [facility] | | + + + + + + | P-R | 156 | ms | [facility] | | | INTERVAL | | | | | + + + + + + | QRS | 80 | ms | [facility] | | | DURATION | | | | | + + + + + + | Q-T | 418 | ms | [facility] | | | INTERVAL | | | | | + + + + + + | Q-T | 470 | ms | [facility] | | | INTERVAL | | | | | | (CORRECTED) | | | | | + + + + + + | P WAVE AXIS | 34 | degrees | [facility] | | + + + + + + | QRS AXIS | 47 | degrees | [facility] | | [...] | | | | | | ventricular | | | | | | hypertrophyNonspecific | | | | | | ST abnormalityAbnormal | | | | | | ECGWhen compared with | | | | | | ECG of 21-SEP-2018 | | | | | | 17:20,Premature atrial | | | | | | complexes are now | | | | | | PresentThis ECG contains | | | | | | Unconfirmed | | | | | | Interpretation | | | | | | Statements. See ED | | | | | | Record for Physician | | | | | | Interpretation. | | | | | | Confirmed by MUSE READ | | | | | | ONLY, -COMPUTER ([id number]), | | | | | | editor house organ Mel Bruno | | | | | | (18) on 10/11/2018 | | | | | | 12:51:51 PM | | | | + + [...] | Diagnosis | + + | Chest pain in adult - Primary | + + | Uncontrolled hypertension Unspecified essential hypertension | + + | Numbness and tingling of left leg Disturbance of skin sensation | + + | Type 2 diabetes mellitus with hyperglycemia, with long-term current use of insulin | | (HCC) | + + documented in this encounter Administered Medications + +--------+ +-------+------+------+ | Medication Order | MAR | Action | Dose | Rate | Site | | | Action | Date | | | | + +--------+ +-------+------+------+ | labetalol (TRANDATE) 5 mg/mL | Given | 10/11/19 | 10 mg | | | | injection 10 mg 10 mg, | | 19 6:08 | | | | | Intravenous, ONCE, Mon10/10/18 at | | PM PDT | | | | | 1755, For 1 dose | | | | | | + +--------+ +-------+------+------+ +---+---+ | | | +---+---+ + +-------+ +--------+---+---+ | nitroglycerin (NITROSTAT) SL | Given | 10/11/19 | 0.4 mg | | | | tablet 0.4 mg 0.4 mg, | | 19 6:08 | | | | | Sublingual, ONCE, Mon10/10/18 at | | PM PDT | | | | | 1755, For 1 dose, Maximum of 3 | | | | | | | doses in 15 minutes., | | | | | | + +-------+ +--------+---+---+ +---+---+ | | | +---+---+ documented in this encounter
--- OUTSIDE RECORDS SUMMARY | ~2019-10-12 | XMS | Encounter Summary ---
Demographics + + + | Address | [address] | | | [place] [address] | + + + | Home Phone | | + + + | Preferred Language | Unknown | + + + | Marital Status | | + + + | Buddhism Affiliation | 1027 | + + + [...] + | Sammi Kohler | ECON | [place] [address] | | + + + + + Care Team Providers + +------+ + | Care Radiologic Technologist Name | Role | Phone | + +------+ + PCP | Unavailable | + +------+ + Encounter Details +--------+ + + + + | Date | Type | Department | Care Team | Description | +--------+ + + + + | 05/30/ | Hospital | [facility] | Conversion | TIA (transient | | 2015 | Encounter | [facility] | Transaction, | ischemic attack) | | | | ULTRASOUND [address] | Provider Unknown | | | | | [address] | | | | | | [place], [place] | (Fax) | | | | | [address] | | | | | | [phone] | | | +--------+ + + + [...] + + documented as of this encounter Plan of Treatment +--------+ + + + + | Date | Type | Specialty | Care Team | Description | +--------+ + + + + | 10/16/ | Anti-coag | Anticoagulation | Brittany Zaragoza | | | 2019 | visit | | [address] | | | | | | [place], | | | | | | [place] [address] | | | | | | [phone] | | | | | | | | +--------+ + + + + documented as of this encounter Procedures + +--------+ + + + | Procedure Name | Priori | Date/Time | Associated Diagnosis | Comments | | | ty | | | | + +--------+ + + + | VAS CAROTID DUPLEX | Routin | 05/30/2014 | | Results for this | | BILATERAL | e | 2:09 PM | | procedure are in the | | | | PDT | | results section. | + +--------+ + + + documented in this encounter Results VAS Carotid Duplex Bilateral (05/30/2014 2:09 PM PDT) + + | Specimen | + + | | + + + + + | Impressions | Performed At | + + + | 1. Mild atherosclerotic plaque in the proximal bilateral internal | | | carotid arteries without significant stenosis. Electronically | | | signed by Neal Ramírez DO on 05/30/2014 5:16 PM | | + + + + + + | Narrative | Performed At | + + + | HISTORY: TIA. TECHNIQUE: Imaging was performed with a linear | | | array transducer. true duplex exam with garnica scale, color flow and | | | Doppler spectral analysis. COMPARISON: 12/02/2013 FINDINGS: | | | Right side: Mild atherosclerotic plaque at the proximal right | | | internal carotid artery CCA-PROX PSV(cm/s)103 EDV | | | (cm/s)19 CCA-DIST PSV(cm/s)110 EDV (cm/s)17 ICA-PROX | | | PSV(cm/s)81 EDV (cm/s)11 ICA-MID | | | PSV(cm/s)90 EDV (cm/s)18 ICA-DIST PSV(cm/s)96 | | | EDV (cm/s)13 ECA-PROX PSV(cm/s)103 EDV (cm/s)13 Left | | | side: Mild obstructive plaque in the proximal left internal carotid | | | artery. CCA-PROX PSV(cm/s)143 EDV (cm/s)15 CCA-DIST | | | PSV(cm/s)89 EDV (cm/s)20 ICA-PROX PSV(cm/s)98 | | | EDV (cm/s)17 ICA-MID PSV(cm/s)80 EDV (cm/s)18 | | | ICA-DIST PSV(cm/s)82 EDV (cm/s)22 ECA-PROX | | | PSV(cm/s)165 EDV (cm/s)16 There are normal peak systolic | | | velocities within the bilateral vertebral arteries with antegrade | | | flow. Grades for ICA: 1 Stenosis =01-50% PSV <125 | | | cm/sec EDV (cm/s)<40 cm/sec (mild plaque) 2 Stenosis | | | =01-50% PSV <125 cm/sec EDV (cm/s)<40 cm/sec (moderate | | | plaque) 3 Stenosis =50-69% PSV >125 cm/sec EDV | | | (cm/s)>40 cm/sec 4 Stenosis =70-95% PSV >230 cm/sec | | | EDV (cm/s)>100 cm/sec 5 Stenosis =90-95% PSV <125 | | | cm/sec EDV (cm/s)<40 cm/sec 6 Stenosis Occluded | | + + + + + | Procedure Note | + + | Richard, Rad Conversion - 09/20/2018 10:29 PM PDT HISTORY:TIA. TECHNIQUE:Imaging was | | performed with a linear array transducer. true duplex exam with garnica scale, color flow | | and Doppler spectral analysis. COMPARISON:12/02/2013 FINDINGS:Right side:Mild | | atherosclerotic plaque at the proximal right internal carotid artery CCA-PROX | | PSV(cm/s)103 EDV (cm/s)19CCA-DIST PSV(cm/s)110 EDV (cm/s)17ICA-PROX | | PSV(cm/s)81 EDV (cm/s)11ICA-MID PSV(cm/s)90 EDV (cm/s)18ICA-DIST | | PSV(cm/s)96 EDV (cm/s)13ECA-PROX PSV(cm/s)103 EDV (cm/s)13 Left side:Mild | | obstructive plaque in the proximal left internal carotid artery. CCA-PROX | | PSV(cm/s)143 EDV (cm/s)15CCA-DIST PSV(cm/s)89 EDV (cm/s)20ICA-PROX | | PSV(cm/s)98 EDV (cm/s)17ICA-MID PSV(cm/s)80 EDV (cm/s)18ICA-DIST | | PSV(cm/s)82 EDV (cm/s)22ECA-PROX PSV(cm/s)165 EDV (cm/s)16 There are normal | | peak systolic velocities within the bilateral vertebral arteries with antegrade flow. | | Grades for ICA:1 Stenosis =01-50% PSV <125 cm/sec EDV (cm/s)<40 cm/sec | | (mild plaque)2 Stenosis =01-50% PSV <125 cm/sec EDV (cm/s)<40 cm/sec | | (moderate plaque)3 Stenosis =50-69% PSV >125 cm/sec EDV (cm/s)>40 cm/sec4 | | Stenosis =70-95% PSV >230 cm/sec EDV (cm/s)>100 cm/sec5 Stenosis =90-95% | | PSV <125 cm/sec EDV (cm/s)<40 cm/sec6 Stenosis Occluded IMPRESSION: 1. | | Mild atherosclerotic plaque in the proximal bilateral internal carotid arteries without | | significant stenosis. | |ECA-PROX PSV(cm/s)103 EDV (cm/s)13 | | | |Left side: | |Mild obstructive plaque in the proximal left internal carotid artery. | | | |CCA-PROX PSV(cm/s)143 EDV (cm/s)15 | |CCA-DIST PSV(cm/s)89 EDV (cm/s)20 | |ICA-PROX PSV(cm/s)98 EDV (cm/s)17 | |ICA-MID PSV(cm/s)80 EDV (cm/s)18 | |ICA-DIST PSV(cm/s)82 EDV (cm/s)22 | |ECA-PROX PSV(cm/s)165 EDV (cm/s)16 | | | |There are normal peak systolic velocities within the bilateral vertebral arteries with ante grade flow. | | | | | |Grades for ICA: | |1 Stenosis =01-50% PSV <125 cm/sec EDV (cm/s)<40 cm/sec (mild plaque) | |2 Stenosis =01-50% PSV <125 cm/sec EDV (cm/s)<40 cm/sec (moderate plaque) | |3 Stenosis =50-69% PSV >125 cm/sec EDV (cm/s)>40 cm/sec | |4 Stenosis =70-95% PSV >230 cm/sec EDV (cm/s)>100 cm/sec | |5 Stenosis =90-95% PSV <125 cm/sec EDV (cm/s)<40 cm/sec | |6 Stenosis Occluded | | | |IMPRESSION: | |1. Mild atherosclerotic plaque in the proximal bilateral internal carotid arteries without significant stenosis. | | | | | + + documented in this encounter Visit Diagnoses + + | Diagnosis | + + | TIA (transient ischemic attack) Unspecified transient cerebral ischemia | + + documented in this encounter"
--- OUTSIDE RECORDS SUMMARY | ~2019-10-12 | XMS | Encounter Summary ---
Demographics + + + | Address | [address] | | | [place] [address] | + + + | Home Phone | | + + + | Preferred Language | Unknown | + + + | Marital Status | | + + + | Episcopal Affiliation | 1027 | + + + | Race | White | + + + | Ethnic Group | Not or | + + + Author + + + | Author | [facility] | | | and [place] | + + + | Organization | [facility] | | | and [place] | + + + | Address | Unknown | + + + | Phone | Unavailable | + + + Support + + + + + | Name | Relationship | Address | Phone | + + + + + | Sammi Kohler | ECON | [place] [address] | | + + + + + Care Team Providers + +------+ + | Care [place]arrow Gatherer Name | Role | Phone | + +------+ + | Mireya Pack NP | PCP | | + +------+ + Reason for Visit Evaluate & Treat (Emergency) +--------+ + + + + + | Status | Reason | Specialty | Diagnoses / | Referred By | Referred To | | | | | Procedures | Contact | Contact | +--------+ + + + + + | Closed | Specialty | Audiology | Diagnoses | Sirena, | Joleen, | | | Services | | Vertigo | Mireya Calixto NP | Meir AUD | | | Required | | | [address] | [address] | [address] | | | | [address] | [address] | | | | | [address] | [place], | | | | | | [place], [place] | [place] [address] | | | | | | [address] | Phone: | | | | | | Phone: | [phone] | | | | | | [phone] | Fax: | | | | | | Fax: | [phone] | | | | | | [phone] | | +--------+ + + + + + Encounter Details +--------+ + + + + | Date | Type | Department | Care Team | Description | +--------+ + + + + | 01/11/ | Procedure | [facility] | Mireya Pack, | Bilateral hearing | | 2019 | visit | AUDIOLOGY [address] | TELEGRAPH OFFICE TELEPHONE CLERK [address] | loss due to cerumen | | | | [address] | [address] [place], | impaction (Primary | | | | [place], [place] | [place] [address] | Dx); Vertigo | | | | [address] | [phone] | | | | | [phone] | | | | | | | Joleen, Meir, AUD | | | | | | [address] | | | | | | [address] [place], [place] | | | | | | [address] | | | | | | | [...] + documented as of this encounter Progress Meir Molina, AUD - 01/11/2019 9:30 AM Andreanadege Guzman was seen for vertigo. He reported waking up with vertigo. He was seen in ED for this ysterday. Kevyn has also had reduced he aring ability in each ear. Impacted cerumen was noted bilaterally during his visit. Otoscopy showed impacted cerumen in each ear canal. Instrumentation, suction, and magnific ation were used to remove the cerumen from the right ear canal. The cerumen removal was per formed by me. The right ear canal was clear and the right eardrum intact after cerumen breezy angelique. A small amount of cerumen was removed from the left ear canal before it became uncomfo rtable. The ear cleaning was stopped. Speech agricultural sales representative thresholds were obtained at 20 dB H L in each ear. Subhash-Hallpike testing was negative for BPPV bilaterally. There is no evidence of BPPV today. His vertigo may have been related to his bilateral cer umen impaction. The right ear canal is not clear of cerumen and a significant amount of cer umen remains in the left ear canal. Kevyn reported his hearing has improved overall. There is no evidence of any hearing asymmetry. Kevyn will return January 21 to have the remai nder of the cerumen removed. documented in this enc ounter Plan of Treatment +--------+ + + + + | Date | Type | Specialty | Care Team | Description | +--------+ + + + + | 10/16/ | Anti-coag | Anticoagulation | Brittany Zaragoza | | | 2019 | visit | | [address] | | | | | | [address] [place], | | | | | | [place] [address] | | | | | | [phone] | | | | | | | | +--------+ + + + + + + +--------+ + + | Name | Type | Priori | Associated Diagnoses | Order Schedule | | | | ty | | | + + +--------+ + + | Ambulatory referral | Outpatient | STAT | Vertigo | Ordered: 01/10/2019 | | to Audiology | Referral | | | | + + +--------+ + + documented as of this encounter Visit Diagnoses + + | Diagnosis | + + | Bilateral hearing loss due to cerumen impaction - Primary | + + | Vertigo Dizziness and giddiness | + + documented in this encounter"
--- OUTSIDE RECORDS SUMMARY | ~2019-10-12 | XMS | Encounter Summary ---
Demographics + + + | Address | [address] | | | [place] [address] | + + + | Home Phone | | + + + | Preferred Language | Unknown | + + + | Marital Status | | + + + | Evangelical Affiliation | 1027 | + + + | Race | White | + + + | Ethnic Group | Not or | + + + Author + + + | Author | [facility] | | | and [place] | + + + | Organization | [facility] | | | and [place] | + + + | Address | Unknown | + + + | Phone | Unavailable | + + + Support + + + + + | Name | Relationship | Address | Phone | + + + + + | Sammi Kohler | ECON | [place] [address] | | + + + + + Care Team Providers + +------+ + | Care Steeping Press Tender Name | Role | Phone | + +------+ + PCP | Unavailable | + +------+ + Encounter Details +--------+ + + + + | Date | Type | Department | Care Team | Description | +--------+ + + + + | 06/05/ | Emergency | [facility] | Zach Garnica DO | Abdominal pain; | | 2014 - | | [facility] | [address] | Vomiting | | | | EMERGENCY CENTER | [place], [place] | | | 06/06/ | | [address] | [address] | | | 2013 | | [place], [place] | [phone] | | | | | [address] | | | | | | [phone] | | | +--------+ + + + [...] ED Notes Conversion Transaction, Provider Unknown - 06/06/2013 12:10 AM PDTFormatting of this note m ight be different from the original. ED Notes by Jenn Moralez RN at 06/06/13 001 Author: Jenn Moralez RN Service: (none) Author Type: Registered Nurse Filed: 06/06/1322 Date of Service: 06/06/139 Status: Signed Manager Copy: Jenn Moralez RN (Registered Nurse) Awaiting taxi for ride to care facility. Jenn Gutierrez RN 06/06/1322 onver ivana Transaction, Provider Unknown - 06/05/2013 11:03 PM PDT ED Notes by Leslie Verdin RN at 06/05/132302 Author: Leslie Verdin RN Service: (none) Author Type: Registered Nurse Filed: 06/05/132302 Date of Service: 06/05/132302 Status: Signed Manager Copy: Leslie Verdin RN (Registered Nurse) Bedside report given to Marques Verdin RN 06/05/132302 onver ivana Transaction, Provider Unknown - 06/05/2013 10:57 PM PDT ED Notes by Leslie Verdin RN at 06/05/132256 Author: Leslie Verdin RN Service: (none) Author Type: Registered Nurse Filed: 06/05/132256 Date of Service: 06/05/132256 Status: Signed Manager Copy: Leslie Verdin RN (Registered Nurse) Urinal at bedside Leslie Verdin RN 06/05/132256 onver ivana Transaction, Provider Unknown - 06/05/2013 10:45 PM PDT ED Notes by Leslie Verdin RN at 06/05/132244 Author: Leslie Verdin RN Service: (none) Author Type: Registered Nurse Filed: 06/05/132244 Date of Service: 06/05/132244 Status: Signed Manager Copy: Leslie Verdin RN (Registered Nurse) Dr Garnica at bedside Leslie Verdin RN 06/05/132244 aterZach DO - 06/05/2013 10:43 PM PDTFormatting of this note might be different from the or iginal. ED Provider Notes by Zach Garnica DO at 06/05/132242 Author: Zach Garnica DO Service: (none) Author Type: Physician Filed: 06/06/132324 Date of Service: 06/05/132242 Status: Signed Manager Copy: Zach Garnica DO (Physician) [facility] Department of Emergency Medicine 10:43 PM History of Present Illness Patient Identification Norah Gr is a 57 y.o. male. Patient information was obtained from patient. History/Exam limitations: none. Patient presented to the Emergency Department by: [facility] Response Chief Complaint Chief Complaint Patient presents with Hernia " umbilical hernia pain getting worse today" The patient presents to ED with complaints of abdominal pain. Onset of symptoms was unknown , with a worsening course since that time. The patient describes the symptoms as increasing pain to the umbilical area, pt states he has a hernia. Pt has been evaluated for this previo usly, and referred to a surgeon. The patient also complains of vomiting x 2, mild shortness of breath (pt states at baseline). Patient denies diarrhea, chest pain. PCP: JERRELL GUTIÉRREZ Past Medical History Diagnosis [...] CHOLECYSTECTOMY; Surgeon: Jevon Vargas DO; Location: [facility] MAIN OR; Service: General; Laterality: N/A; Abdominal surgery Cholecystectomy Skin cancer excision 10/10/2012 Procedure: EXCISION - SKIN CANCER; Surgeon: Sy Fierro MD; Location: [facility] MAIN OR ; Service: Plastics; Laterality: Left; upper arm and upper back w/frozen section Esophagogastroduodenoscopy 03/03/2013 Procedure: ESOPHAGOGASTRODUODENOSCOPY; Surgeon: Howie Gibson MD; Location: [facility] ENDOSCOPY; S ervice: Gastroenterology; Laterality: N/A; Colonoscopy 03/04/2013 Procedure: COLONOSCOPY; Surgeon: Howie Gibson MD; Location: [facility] ENDOSCOPY; Service: Gastroe nterology; Laterality: N/A; Prior to Admission medications Medication Sig Start Date End Date Taking? Authorizing Provider ARIPiprazole (ABILIFY) 10 MG tablet Take 15 mg by mouth nightly. Yes Historical Provider aspirin 81 MG chewable tablet Take 1 tablet by mouth daily with breakfast. 05/27/13 05/27/14 Yes Augustine Agosto MD calcium carbonate (TUMS) 500 MG chewable tablet Take 500-1,000 mg by mouth daily as needed. For GERD Yes Historical Provider cloNIDine (CATAPRES) 0.2 MG tablet Take 1 tablet by mouth 3 (three) times daily. 03/05/13 Yes Scott Martínez MD docusate sodium (COLACE) 100 MG capsule Take 100 mg by mouth nightly. Yes Historical Prov ider fenofibrate (TRIGLIDE) 160 MG tablet Take 160 mg by mouth daily. Yes Historical Provider HYDROcodone-acetaminophen (NORCO) 5-325 MG per tablet Take 1 tablet by mouth every 6 (six) hours as needed. Yes Historical Provider insulin glargine (LANTUS) 100 UNIT/ML injection Inject into the skin nightly. Per MAR: inc rease by 1 unit every night by one unit to get 150 fasting blood sugar. 25 units 03/21/13 Y es Historical Provider linagliptin (TRADJENTA) 5 MG tablet Take 5 mg by mouth daily. Yes Historical Provider lisinopril (PRINIVIL,ZESTRIL) 40 MG tablet Take 1 tablet by mouth daily. 03/05/13 03/05/14 Juan Martínez MD LORazepam (ATIVAN) 0.5 MG tablet Take 0.5 mg by mouth every 6 (six) hours as needed. Indica tions: Feeling Anxious Yes Historical Provider nebivolol (BYSTOLIC) 10 MG tablet Take 20 mg by mouth daily. Yes Historical Provider NOVOLOG 100 UNIT/ML injection INJ 3U SUB-Q TID(AC) AND INJECT SUBCUTANEOUSLY PER SLIDING SC SUSAN 1-70= 2U, 71-100=3U, 101-120= 4U, 121-150=5U, 151-180=6U, 181-210= 7U, 211- 04/23/13 Yes Bang Yeh MD omeprazole (PRILOSEC) 20 MG capsule Take 1 capsule by mouth 2 (two) times daily. 05/27/13 Yes Augustine Agosto MD paroxetine (PAXIL) 40 MG tablet Take 40 mg by mouth every morning. Yes Historical Provi carlos pravastatin (PRAVACHOL) 20 MG tablet Take 20 mg by mouth nightly. Yes Historical Provider tiotropium (SPIRIVA) 18 MCG inhalation capsule Inhale 18 mcg into the lungs daily. Yes Hi storical Provider diltiazem (CARDIZEM CD) 180 MG 24 hr capsule Take 1 capsule by mouth daily. 05/19/13 06/05/13 Yes Zach Tena MD Albuterol Sulfate (VENTOLIN HFA IN) Inhale 2 puffs into the lungs as needed. Historical Provider fluticasone-salmeterol (ADVAIR DISKUS) 250-50 MCG/DOSE AEPB Inhale 1 puff into the lungs ev wilbert 12 (twelve) hours. 09/14/12 Augustine Agosto MD loperamide (IMODIUM) 2 MG capsule Take 2 mg by mouth as needed. 4 mg after first loose stoo l, then 2 mg after each further loose stool Not to exceed 8 mg per day. Historical Provider Mometasone Furo-Formoterol Fum (DULERA) 100-5 MCG/ACT AERO Inhale 1-2 puffs into the lungs. Historical Provider nitroGLYCERIN (NITROSTAT) 0.[address] 0.4 mg under the tongue every 5 (five) min utes as needed. Historical Provider polyethylene glycol (GLYCOLAX) packet Take 17 g by mouth daily. Historical Provider polyethylene glycol (GLYCOLAX) powder DISSOLVE 17GM IN LIQUID AND DRINK BY MOUTH EVERY DAY 04/23/13 Bang Yeh MD No Known Allergies History Social History Marital [...] on file Social History Narrative Lives in long-term, IADL, full code Family History Problem Relation Age of Onset Heart disease Father Heart disease Sister Diabetes type II Sister Review of Systems Constitutional: Negative for fever, chills Eyes: Negative for vision changes Nose: Negative for congestion, nosebleeds Throat: Negative for sore throat CV/Resp: Positive for mild shortness of breath (at baseline) Negative for chest pain, cough GI: Positive for abdominal pain (hernia per pt) and vomiting Negative for diarrhea : Negative for urinary problems Musculoskeletal: Negative for back pain, joint pain Skin: Negative for rash Neuro/Psych: Negative for headache Endo/heme/Lymph: Negative for swollen lymph nodes, easy bruising All other systems reviewed and negative except as noted. Physical Exam BP 203/91 | Pulse 57 | Temp 98.1 F (36.7 C) (Oral) | Resp 18 | Ht 1.803 m (5' 11") | Wt 106.142 kg (234 lb) | BMI 32.65 kg/m2 | SpO2 96% Vital signs interpretation: Hypertensive, bradycardic, otherwise normal Pulse Oximetry interpretation: Normal General: Alert, in no apparent distress Eyes: Normal inspection, pupils equal and round, non-icteric ENT: Normal external inspection Neck: Normal inspection Supple Cardiovascular: Rate and rhythm normal No murmurs Respiratory: Breath sounds normal bilaterally No rales, wheezing or rhonchi Abdomen: Mildly distended, TTP around the umbilicus, no obvious palpable hernia No guarding or rebound Back: Normal inspection Skin: Color normal Warm and dry No rash Neuro: Alert, no AMS No gross motor/sensory deficits Medical Decision Making and Emergency Department Course ED Department Course 10:43 PM Patient presents to ED with complaints of abdominal pain (pt states umbilical graeme ia), vomiting x 2, and mild shortness of breath (at baseline per pt). On exam the patient kelley s mild abdominal distension with TTP around the umbilicus, no obvious palpable hernia. My DD x includes, but is not limited to: umbilical hernia, gastritis, gastroenteritis, viral illne ss. Will order labs and CT abdomen, and reevaluate the patient. Patient is stable at this ti de. 11:[address] results show no acute findings, no hernia noted. Labs reviewed. CBC shows HG B mildly low at 13.1, MCH low at 26.7. CMP shows glucose elevated at 226, albumin low at 3.4 , A/G low at 0.8. Lipase normal. No acute findings. 11:55 PM Patient reevaluation. Patient is stable and feeling better at this time. I discuss ed all ED results and my clinical impression with the patient. Patient is ready for discharg e. I advised patient to follow up with a PCP and we discussed the emergent signs and symptom s that would necessitate a return to ED. The patient understands and agrees with the plan. A ll questions and concerns addressed. Will discharge home with Rx for Zofran. Filed Vitals: 06/05/13 2236 06/05/13 2302 06/05/13 2335 BP: 203/91 182/87 194/93 Pulse: 57 58 55 Temp: 98.1 F (36.7 C) 99.3 F (37.4 C) TempSrc: Oral Oral Resp: 18 18 18 Height: 1.803 m (5' 11") Weight: 106.142 kg (234 lb) SpO2: 96% 95% 95% Records Reviewed Old medical records. Nursing notes. Nursing notes. Nursing notes reviewed for chief complaint, medications, clinical presentati on and vital signs. Old ED records reviewed (Using the electronic record system of [facility], I ailyn efully reviewed the records with regard to the past medical/surgical history, previous medic ations, and allergies). Laboratory Evaluation Results Procedure Component Value Ref Range Date/Time Comprehensive metabolic panel [[id number]] (Abnormal) Collected:06/05/132258 Order Status:Completed Updated:06/05/132330 Specimen Information:Blood SODIUM 139 135 - 143 mmol/L POTASSIUM 3.7 3.5 - 4.9 mmol/L CHLORIDE 102 99 - 109 mmol/L CO2 29 23 - 32 mmol/L ANION GAP AGAP 11 5 - 20 mmol/L GLUCOSE 226 (H) 65 - 99 mg/dL BUN 20 8 - 25 mg/dL CREATININE 1.18 0.70 - 1.30 mg/dL BUN/CREAT 17 CALCIUM 9.1 8.5 - 10.2 mg/dL TOTAL PROTEIN 7.5 6.3 - 8.2 g/dL Albumin 3.4 (L) 3.6 - 5.0 g/dL GLOBULIN 4.1 1.3 - 4.9 g/dL A/G 0.8 (L) 1.0 - 2.4 TBIL 0.3 0.1 - 1.5 mg/dL ALK PHOS 82 35 - 115 U/L AST 21 10 - 45 U/L ALT 25 10 - 65 U/L EGFR >60 >60 mL/min/1.73m2 Lipase [[id number]] Collected:06/05/132258 Order Status:Completed Updated:06/05/132330 Specimen Information:Blood LIPASE 207 73 - 393 U/L CBC with differential [[id number]] (Abnormal) Collected:06/05/132258 Order Status:Completed Updated:06/05/132313 Specimen Information:Blood WBC 9.5 3.8 - 11.0 K/uL RBC 4.90 4.20 - 5.70 M/uL HGB 13.1 (L) 13.2 - 17.0 g/dL HCT 40.2 39.0 - 50.0 % MCV 82.1 80.0 - 100.0 fl MCH 26.7 (L) 27.0 - 34.0 pg MCHC 32.5 32.0 - 35.5 g/dL RDW SD 44.6 37 - 53 fl PLT 282 150 - 400 K/uL MPV 7.2 fl DIFF TYPE AUTOMATED NEUTROPHILS 55.4 % LYMPHOCYTES 32.3 % MONOCYTES 8.8 % EOSINOPHILS 2.9 % BASOPHILS 0.6 % NEUTROPHILS ABS 5.3 1.9 - 7.4 K/uL LYMPHOCYTES ABS 3.1 1.0 - 3.9 K/uL MONOCYTES ABS 0.8 0 - 0.8 K/uL EOSINOPHILS ABS 0.3 0 - 0.5 K/uL BASOPHILS ABS 0.1 0 - 0.1 K/uL I personally reviewed the lab results and they have been posted to the chart. Pertinent po sitive and negative findings have been addressed appropriately. Radiology and EKG Evaluation Imaging Results CT abdomen pelvis without IV contrast (Final result) Result time:06/05/132337 Final result by Rad Results In Richard (06/05/13 23:38:28) Impression: 1. No acute findings visualized. 2. Stable right renal cyst. 3. Cholecystectomy and normal bile ducts. 4. Small duodenal diverticulum in the head of the pancreas, usually not clinically signifi cant. 5. Moderate spondylosis at L5-S1, unchanged. 6. 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 Narrative: NORAH GR CT ABDOMEN PELVIS WO CONTRAST 06/05/2013 11:18 PM History: 57 years. Male. Acute upper abdominal pain. Technique: No oral or IV contrast given. 5 mm thick slices were made fibrillary will throug hout the abdomen and pelvis. Coronal reformation imaging was reconstructed. Comparison examination: 03/22/13, 09/18/12 ABDOMEN: The hepatic volume, density and texture are normal. No focal hepatic lesions visu alized. The gallbladder has been removed. The bile ducts are normal in caliber. The thicknes s and density of the pancreas is normal. No celiac, peripancreatic or retrocrural adenopathy visualized. A small duodenal diverticulum is visualized in the inferior aspect of the head of the pancreas, not significant. The splenic volume and texture are normal. The gastroesophageal junction is normal. The st omach shows normal wall thickness and position. The duodenum is unremarkable. The lower edie g kong and pleural spaces are partially visualized and appear clear. The cardiac volume is normal. The adrenal glands are normal in thickness, without visible nodule. The right renal cyst me asures 32 mm, unchanged as compared with 03/22/13. The kidneys are otherwise unremarkable. T he abdominal aorta shows some wall calcification indicating early atherosclerosis. No aorti c dilatation visualized. No periaortic lymphadenopathy noted. PELVIS: The caliber and wall thickness of the entire colon are normal, without diverticula or mass. Small intraluminal polyps cannot be excluded by this exam. The appendix is visual ized and appears normal. The loops of small bowel show normal caliber throughout the abdomen and pelvis, without edema or wall thickening. The mesenteric adipose tissue is dark, withou t infiltrate or edema. No free fluid, free air or peritoneal nodules visualized. The urinar y bladder wall is thin and uniform, without mass. The density of the urine is uniform and n ormal. The distal ureters appear normal. The prostate gland is normal in size. The iliac a nd inguinal lymph node chains are normal. Moderate spondylosis is visualized at L5-S1. Mild facet arthropathy is noted at L4-L5. No f ocal osteolytic process visualized in the range of the examination. Mild osteoarthritis is visualized in both hip joints. ED Diagnoses Final diagnoses Abdominal pain Vomiting Disposition: ED Disposition Discharge Condition at discharge: Stable Follow-up Information Follow up With Details Comments Contact Info Jerrell Gutiérrez DO In 2 days [address] [facility] [address] [facility] Emergency Department If symptoms worsen [address] [address] Discharge Medications: New Prescriptions ONDANSETRON (ZOFRAN ODT) 4 MG DISINTEGRATING TABLET Take 1 tablet by mouth every 8 (eig ht) hours as needed for Nausea. Additional Documentation Procedures Attending Note: Documentation assistance provided by Kathryn Melendez (Scribe). Information recorded by the scribe has been reviewed and validated by me. Troy laughlin with its contents. DO Zach Gonsalez DO 06/06/132324 onversion Transactlenin sanchez, Provider Unknown - 06/05/2013 10:37 PM PDT ED Notes by Jenn Moralez RN at 06/05/132236 Author: Jenn Moralez RN Service: (none) Author Type: Registered Nurse Filed: 06/05/132236 Date of Service: 06/05/132236 Status: Signed Manager Copy: Jenn Moralez RN (Registered Nurse) Bed:05
Expected date:
Expected time:
Means of arrival:
[...] | | | | | | [place] [id number] | | | | | | [phone] | | | | | | | | +--------+ + + + + documented as of this encounter Procedures + +--------+ + + + | Procedure Name | Priori | Date/Time | Associated Diagnosis | Comments | | | ty | | | | + +--------+ + + + | CT ABDOMEN PELVIS WO | Routin | 06/05/2013 | | Results for this | | CONTRAST | e | 11:18 PM | | procedure are in the | | | | PDT | | results section. | + +--------+ + + + | EXTERNAL LAB: CBC | Routin | 06/05/2013 | | Results for this | | | e | 10:59 PM | | procedure are in the | | | | PDT | | results section. | + +--------+ + + + | LIPASE | Routin | 06/05/2013 | | Results for this | | | e | 10:59 PM | | procedure are in the | | | | PDT | | results section. | + +--------+ + + + | COMPREHENSIVE | Routin | 06/05/2013 | | Results for this | | METABOLIC PANEL | e | 10:59 PM | | procedure are in the | | | | PDT | | results section. | + +--------+ + + + documented in this encounter Results CT Abdomen Pelvis wo Contrast (06/05/2013 11:18 PM PDT) + + | Specimen | + + | | + + + + + | Impressions | Performed At | + + + | 1. No acute findings visualized. 2. Stable right renal cyst. | | | 3. Cholecystectomy and normal bile ducts. 4. Small duodenal | | | diverticulum in the head of the pancreas, usually not clinically | | | significant. 5. Moderate spondylosis at L5-S1, unchanged. 6. 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 | | + + + + + + | Narrative | Performed At | + + + | [facility] GR CT ABDOMEN PELVIS WO CONTRAST 06/05/2013 11:18 PM | | | History: 57 years. Male. Acute upper abdominal pain. | | | Technique: No oral or IV contrast given. 5 mm thick slices were made | | | fibrillary will throughout the abdomen and pelvis. Coronal reformation | | | imaging was reconstructed. Comparison examination: 03/22/13, | | | 09/18/12 ABDOMEN: The hepatic volume, density and texture are | | | normal. No focal hepatic lesions visualized. The gallbladder has | | | been removed. The bile ducts are normal in caliber. The thickness and | | | density of the pancreas is normal. No celiac, peripancreatic or | | | retrocrural adenopathy visualized. A small duodenal diverticulum is | | | visualized in the inferior aspect of the head of the pancreas, not | | | significant. The splenic volume and texture are normal. The | | | gastroesophageal junction is normal. The stomach shows normal wall | | | thickness and position. The duodenum is unremarkable. The lower lung | | | kong and pleural spaces are partially visualized and appear clear. | | | The cardiac volume is normal. The adrenal glands are normal in | | | thickness, without visible nodule. The right renal cyst measures 32 | | | mm, unchanged as compared with 03/22/13. The kidneys are otherwise | | | unremarkable. The abdominal aorta shows some wall calcification | | | indicating early atherosclerosis. No aortic dilatation visualized. | | | No periaortic lymphadenopathy noted. PELVIS: The caliber and | | | wall thickness of the entire colon are normal, without diverticula or | | | mass. Small intraluminal polyps cannot be excluded by this exam. The | | | appendix is visualized and appears normal. The loops of small bowel | | | show normal caliber throughout the abdomen and pelvis, without edema | | | or wall thickening. The mesenteric adipose tissue is dark, without | | | infiltrate or edema. No free fluid, free air or peritoneal nodules | | | visualized. The urinary bladder wall is thin and uniform, without | | | mass. The density of the urine is uniform and normal. The distal | | | ureters appear normal. The prostate gland is normal in size. The | | | iliac and inguinal lymph node chains are normal. Moderate | | | spondylosis is visualized at L5-S1. Mild facet arthropathy is noted at | | | L4-L5. No focal osteolytic process visualized in the range of the | | | examination. Mild osteoarthritis is visualized in both hip joints. | | | | | + + + + ------+ | Procedure Note | + ------+ | Richard, Rad Conversion - 09/21/2018 3:31 PM PDT [facility] GRCT ABDOMEN PELVIS WO | | CONTRAST06/05/2013 11:18 PM History: 57 years. Male. Acute upper abdominal pain. | | Technique: No oral or IV contrast given. 5 mm thick slices were made fibrillary will | | throughout the abdomen and pelvis. Coronal reformation imaging was reconstructed. | | Comparison examination: 03/22/13, 09/18/12 ABDOMEN: The hepatic volume, density and | | texture are normal. No focal hepatic lesions visualized. The gallbladder has been | | removed. The bile ducts are normal in caliber. The thickness and density of the pancreas | | is normal. No celiac, peripancreatic or retrocrural adenopathy visualized. A small | | duodenal diverticulum is visualized in the inferior aspect of the head of the pancreas, | | not significant. The splenic volume and texture are normal. The gastroesophageal | | junction is normal. The stomach shows normal wall thickness and position. The duodenum | | is unremarkable. The lower lung kong and pleural spaces are partially visualized and | | appear clear. The cardiac volume is normal. The adrenal glands are normal in thickness, | | without visible nodule. The right renal cyst measures 32 mm, unchanged as compared with | | 03/22/13. The kidneys are otherwise unremarkable. The abdominal aorta shows some wall | | calcification indicating early atherosclerosis. No aortic dilatation visualized. No | | periaortic lymphadenopathy noted. PELVIS: The caliber and wall thickness of the entire | | colon are normal, without diverticula or mass. Small intraluminal polyps cannot be | | excluded by this exam. The appendix is visualized and appears normal. The loops of small | | bowel show normal caliber throughout the abdomen and pelvis, without edema or wall | | thickening. The mesenteric adipose tissue is dark, without infiltrate or edema. No free | | fluid, free air or peritoneal nodules visualized. The urinary bladder wall is thin and | | uniform, without mass. The density of the urine is uniform and normal. The distal | | ureters appear normal. The prostate gland is normal in size. The iliac and inguinal | | lymph node chains are normal. Moderate spondylosis is visualized at L5-S1. Mild facet | | arthropathy is noted at L4-L5. No focal osteolytic process visualized in the range of | | the examination. Mild osteoarthritis is visualized in both hip joints. IMPRESSION: 1. | | No acute findings visualized.2. Stable right renal cyst.3. Cholecystectomy and | | normal bile ducts.4. Small duodenal diverticulum in the head of the pancreas, usually | | not clinically significant.5. Moderate spondylosis at L5-S1, unchanged.6. Mild | | osteoarthritis in both hip joints. Electronically signed by Dank Sharma MD on | | 06/05/2013 11:38 PM | |4. Small duodenal diverticulum in the head of the pancreas, usually not clinically signifi cant. | |5. Moderate spondylosis at L5-S1, unchanged. | |6. 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 | | | | | + ------+ External Lab: EVE (06/05/2013 10:59 PM PDT) + + + + + + | Component | Value | Ref Range | Performed | Pathologist | | | | | At | Signature | + + + + + + | WBC | 9.5Comment: Testing | 3.8 - 11.0 K/uL | EXTERNAL | | | | performed at [facility] [place];888 | | LAB | | | | [address];[place] | | | | | | [address] | | | | + + + + + + | Non- | 4.90Comment: Testing | 4.20 - 5.70 | EXTERNAL | | | Red Blood | performed at [facility];888 | M/uL | LAB | | | Cells | [address];[place] | | | | | Counted | [address] | | | | + + + + + + | Hemoglobin | 13.1 (L)Comment: Testing | 13.2 - 17.0 | EXTERNAL | | | | performed at [facility];888 | g/dL | LAB | | | | [address];[place] | | | | | | [address] | | | | + + + + + + | Hematocrit, | 40.2Comment: Testing | 39.0 - 50.0 % | EXTERNAL | | | POC | performed at [facility];888 | | LAB | | | | [address];[place] | | | | | | [address] | | | | + + + + + + | MCV | 82.1Comment: Testing | 80.0 - 100.0 fl | EXTERNAL | | | | performed at [facility];888 | | LAB | | | | [address];[place] | | | | | | [address] | | | | + + + + + + | MCH | 26.7 (L)Comment: Testing | 27.0 - 34.0 pg | EXTERNAL | | | | performed at [facility];888 | | LAB | | | | [address];[place] | | | | | | [address] | | | | + + + + + + | MCHC | 32.5Comment: Testing | 32.0 - 35.5 | EXTERNAL | | | | performed at [facility];888 | g/dL | LAB | | | | [address];[place] | | | | | | [address] | | | | + + + + + + | RDW-CV | 44.6Comment: Testing | 37 - 53 fl | EXTERNAL | | | | performed at [facility];888 | | LAB | | | | [address];[place] | | | | | | [address] | | | | + + + + + + | Platelet | 282Comment: Testing | 150 - 400 K/uL | EXTERNAL | | | Count | performed at [facility];888 | | LAB | | | Plasma | [address];[place] | | | | | | [address] | | | | + + + + + + | MPV | 7.2Comment: Testing | fl | EXTERNAL | | | | performed at [facility];888 | | LAB | | | | [address];[place] | | | | | | [address] | | | | + + + + + + | Differentia | AUTOMATEDComment: | | EXTERNAL | | | l Type | Testing performed at | | LAB | | | | [place];[place] [address] | | | | + + + + + + | % Segmented | 55.4Comment: Testing | % | EXTERNAL | | | | performed at [facility];888 | | LAB | | | Neutrophils | [address];[place] | | | | | | [address] | | | | + + + + + + | % | 32.3Comment: Testing | % | EXTERNAL | | | Lymphocytes | performed at [facility];[address] | | LAB | | | | [address];[place] | | | | | | [address] | | | | + + + + + + | % Monocytes | 8.8Comment: Testing | % | EXTERNAL | | | | performed at [facility];[address] | | LAB | | | | [address];[place] | | | | | | [address] | | | | + + + + + + | % | 2.9Comment: Testing | % | EXTERNAL | | | Eosinophils | performed at [facility];888 | | LAB | | | | [address];[place] | | | | | | [address] | | | | + + + + + + | % Basophils | 0.6Comment: Testing | % | EXTERNAL | | | | performed at [facility];888 | | LAB | | | | [address];[place] | | | | | | [address] | | | | + + + + + + | Absolute | 5.3Comment: Testing | 1.9 - 7.4 K/uL | EXTERNAL | | | Segmented | performed at [facility];888 | | LAB | | | Neutrophils | [address];[place] | | | | | | [address] | | | | + + + + + + | Absolute | 3.1Comment: Testing | 1.0 - 3.9 K/uL | EXTERNAL | | | Lymphocytes | performed at [facility];[address] | | LAB | | | | [address];[place] | | | | | | [address] | | | | + + + + + + | Absolute | 0.8Comment: Testing | 0 - 0.8 K/uL | EXTERNAL | | | Monocytes | performed at [facility];[address] | | LAB | | | | [address];[place] | | | | | | [address] | | | | + + + + + + | Absolute | 0.3Comment: Testing | 0 - 0.5 K/uL | EXTERNAL | | | Eosinophils | performed at [facility];[address] | | LAB | | | | [address];[place] | | | | | | [address] | | | | + + + + + + | Absolute | 0.1Comment: Testing | 0 - 0.1 K/uL | EXTERNAL | | | Basophils | performed at [facility];888 | | LAB | | | | [address];[place], [place] | | | | | | [address] | | | | + + + + + + + + | Specimen | + + | Blood specimen | | (specimen) | + + + +---------+ + + | Performing | Address | City/State/Zipcode | Phone Number | | Organization | | | | + +---------+ + + | EXTERNAL LAB | | | | + +---------+ + + Lipase (06/05/2013 10:59 PM PDT) + + + + + + | Component | Value | Ref Range | Performed | Pathologist | | | | | At | Signature | + + + + + + | Lipase | 207Comment: Testing | 73 - 393 U/L | EXTERNAL | | | | performed at [facility];888 | | LAB | | | | [address];[place] | | | | | | [address] | | | | + + + [...] + +---------+ + + Comprehensive Metabolic Panel (06/05/2013 10:59 PM PDT) + + + + + + | Component | Value | Ref Range | Performed | Pathologist | | | | | At | Signature | + + + + + + | Na | 139Comment: Testing | 135 - 143 | EXTERNAL | | | | performed at [facility];888 | mmol/L | LAB | | | | [address];[place] | | | | | | [address] | | | | + + + + + + | K | 3.7Comment: Testing | 3.5 - 4.9 | EXTERNAL | | | | performed at [facility];888 | mmol/L | LAB | | | | [address];[place] | | | | | | [address] | | | | + + + + + + | Cl | 102Comment: Testing | 99 - 109 mmol/L | EXTERNAL | | | | performed at [facility];[address] | | LAB | | | | [address];[place] | | | | | | [address] | | | | + + + + + + | CO2 | 29Comment: Testing | 23 - 32 mmol/L | EXTERNAL | | | | performed at [facility];[address] | | LAB | | | | [address];[place] | | | | | | [address] | | | | + + + + + + | Anion Gap | 11Comment: Testing | 5 - 20 mmol/L | EXTERNAL | | | | performed at [facility];[address] | | LAB | | | | [address];[place] | | | | | | [address] | | | | + + + + + + | Glucose, | 226 (H)Comment: Testing | 65 - 99 mg/dL | EXTERNAL | | | Fasting | performed at [facility];[address] | | LAB | | | | [address];[place] | | | | | | [address] | | | | + + + + + + | BUN | 20Comment: Testing | 8 - 25 mg/dL | EXTERNAL | | | | performed at [facility];[address] | | LAB | | | | [address];[place] | | | | | | [address] | | | | + + + + + + | Creatinine | 1.18Comment: Testing | 0.70 - 1.30 | EXTERNAL | | | | performed at [facility];888 | mg/dL | LAB | | | | [address];[place] | | | | | | [address] | | | | + + + + + + | BUN/Creatin | 17Comment: Testing | | EXTERNAL | | | ine Ratio | performed at [facility];[address] | | LAB | | | | [address];[place] | | | | | | [address] | | | | + + + + + + | Calcium | 9.1Comment: Testing | 8.5 - 10.2 | EXTERNAL | | | | performed at [facility];888 | mg/dL | LAB | | | | [address];[place] | | | | | | [address] | | | | + + + + + + | Protein, | 7.5Comment: Testing | 6.3 - 8.2 g/dL | EXTERNAL | | | Total | performed at [facility];[address] | | LAB | | | | [address];[place] | | | | | | [address] | | | | + + + + + + | Albumin | 3.4 (L)Comment: Testing | 3.6 - 5.0 g/dL | EXTERNAL | | | | performed at [facility];[address] | | LAB | | | | [address];[place] | | | | | | [address] | | | | + + + + + + | Globulin | 4.1Comment: Testing | 1.3 - 4.9 g/dL | EXTERNAL | | | | performed at [facility];[address] | | LAB | | | | [address];[place] | | | | | | [address] | | | | + + + + + + | A/G Ratio | 0.8 (L)Comment: Testing | 1.0 - 2.4 | EXTERNAL | | | | performed at [facility];[address] | | LAB | | | | [address];[place] | | | | | | [address] | | | | + + + + + + | Bilirubin | 0.3Comment: Testing | 0.1 - 1.5 mg/dL | EXTERNAL | | | Total | performed at [facility];[address] | | LAB | | | | [address];[place] | | | | | | [address] | | | | + + + + + + | ALP, | 82Comment: Testing | 35 - 115 U/L | EXTERNAL | | | External | performed at [facility];888 | | LAB | | | | [address];[place] | | | | | | [address] | | | | + + + + + + | AST | 21Comment: Testing | 10 - 45 U/L | EXTERNAL | | | | performed at [facility];[address] | | LAB | | | | [address];[place] | | | | | | [address] | | | | + + + + + + | ALT | 25Comment: Testing | 10 - 65 U/L | EXTERNAL | | | | performed at [facility];[address] | | LAB | | | | [address];[place] | | | | | | [address] | | | | + + + [...] | | | | | | at [facility];[address];[place] [address] | | | | + + + [...] pain, unspecified site | + + | Vomiting Vomiting alone | + + documented in this encounter
--- OUTSIDE RECORDS SUMMARY | ~2019-10-12 | XMS | Encounter Summary ---
Demographics + + + | Address | [address] | | | [place] [address] | + + + | Home Phone | | + + + | Preferred Language | Unknown | + + + | Marital Status | | + + + | Sabianism Affiliation | 1027 | + + + | Race | White | + + + | Ethnic Group | Not or | + + + Author + + + | Author | [facility] | | | and [place] | + + + | Organization | [facility] | | | and [place] | + + + | Address | Unknown | + + + | Phone | Unavailable | + + + Support + + + + + | Name | Relationship | Address | Phone | + + + + + | Sammi Kohler | ECON | [place] [address] | | + + + + + Care Team Providers + +------+ + | Care Rail Bender Name | Role | Phone | + +------+ + | Mireya Pack NP | PCP | | + +------+ + Reason for Visit +--------+--------+ + | Reason | Onset | Comments | | | Date | | +--------+--------+ + | Triage | 05/12/ | | | | 2020 | | +--------+--------+ + Encounter Details +--------+ + + + + | Date | Type | Department | Care Team | Description | +--------+ + + + + | 05/12/ | Telephone | [facility] | Venkata Ivonne | Triage | | 2020 | | [facility] | H, RN | | | | | CARE [address] | | | | | | [place], [place] | | | | | | [address] | | | | | | [phone] | | | +--------+ + + + [...] this encounter Miscellaneous Notes Telephone Encounter - Ivonne Hastings RN - 05/13/2019 10:31 AM [facility] triage call for [facility] Spoke with patient. Says His blood sugars have been higher. Today blood sugar was 426. Fasting blood sugar today was 386. Says blood sugar this weekend was high. Highest was 426 . Is feeling really weak and dizzy. Had chest pain at 5:00am today. EMT's came to house an d evaluated him. EKG was normal. Didn't bring him to the hospital. Patient still having some chest pain. Denies vomiting, fever, rapid breathing. Advised patient he needs to be evaluated in the ER. He verbalized understanding. He says he doesn't have anyone that can take him. He will call 911 and have EMT's Electronically si gned by Ivonne Hastings RN at 05/13/2019 10:47 AM PDTdocumented in this encounter Plan of Treatment +--------+ + + + + | Date | Type | Specialty | Care Team | Description | +--------+ + + + + | 10/16/ | Anti-coag | Anticoagulation | Brittany Zaragoza | | 2019 | visit | | [address] | | | | | | [place], | | | | | | [place] [address] | | | | | | [phone] | | | | | | | | +--------+ + + + + documented as of this encounter Visit Diagnoses Not on filedocumented in this encounter"
--- OUTSIDE RECORDS SUMMARY | ~2019-10-12 | XMS | Encounter Summary ---
Demographics + + + | Address | [address] | | | [place] [address] | + + + | Home Phone | | + + + | Preferred Language | Unknown | + + + | Marital Status | | + + + | Jain Affiliation | 1027 | + + + [...] + + + + + | Sammi oKhler | ECON | [place] [address] | | + + + + + Care Team Providers + +------+ + | Care Still Runner Name | Role | Phone | + +------+ + PCP | Unavailable | + +------+ + Encounter Details +--------+ + + + + | Date | Type | Department | Care Team | Description | +--------+ + + + + | 05/06/ | Hospital | [facility] | Agsutín Box MD | Paresthesias; | | 2015 - | Encounter | MEDICAL CENTER | [address] | Shoulder contusion, | | | | CLINICAL DECISION | [place] [address] | left, initial | | 05/07/ | | [address] | [phone] | encounter; Acute | | 2014 | | [place], [place] | | left-sided weakness; | | | | [address] | | CKD (chronic kidney | | | | [phone] | | disease); | | | | | | Paroxysmal atrial | | | | | | fibrillation (HCC); | | | | | | HTN (hypertension); | | | | | | Diabetes mellitus, | | | | | | type 2 (HCC) | +--------+ + + + + [...] documented as of this encounter Discharge Summaries Lorna Looney MD - 05/07/2014 6:35 PM PDTFormatting of this note might be different from t he original. Discharge Summaries by Lorna Looney MD at 05/07/141834 Author: Lorna Looney MD Service: Hospitalist Author Type: Physician Filed: 05/10/14 1132 Date of Service: 05/07/141834 Status: Signed Capture Manager: Lorna Looney MD (Physician) Related Notes: Original Note by Lorna Looney MD (Physician) filed at 05/07/14 6592 [facility] Service: Hospitalist Physician Discharge Summary Patient ID: Norah Gr 1955 58 y.o. Admit date: 05/06/2014 Discharge date: 05/07/14 Admitting Physician: Agustín Box MD Discharge Physician: Lorna Looney MD Consultants: Treatment Team: Admitting Provider: Agustín Box MD Primary Discharge Diagnoses: Principal Problem: TIA (transient ischemic attack) Active Problems: Diabetes mellitus, type 2 HTN (hypertension) Paroxysmal atrial fibrillation Resolved Problems: * No resolved hospital problems. * HPI and Hospital Course: The patient is a 58-year-old diabetic with a history of atrial fibrillation, hypertension, hyperlipidemia, and sleep apnea who presented with left-sided weakness and possible stroke. The patient underwent MRI which did not show evidence of acute ischemia. It showed diffuse c erebral atrophy, mild chronic white matter microvascular gliosis, and unremarkable MRA of th e cerebral artery system. No stenosis, aneurysm, occlusion or vasculitis noted per radiologi st Dr. Ramírez; please see MRI report. The patient also underwent cardiac echocardiogram which showed an EF of 65% to 70%, normal diastolic filling pattern. No pulmonary hypertension. The patient was in sinus rhythm throug hout his hospital course. He also had a noncontrast head CT which was negative for intracran ial hemorrhage. The patient had a previous carotid duplex that showed mild atherosclerotic p laques in both common carotid bifurcations without flow-limiting stenosis. Vertebral blood f low is antegrade bilaterally. There were some elevated peak systolic velocities in the right and left external carotid that appeared physiologic rather than pathologic per report. The patient is currently on aspirin 325 mg. He is not on Coumadin for atrial fibrillation. 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 His CHADS2 score is 2. I did discuss possible Coumadin therapy with Dr. Gregory, neurologist, who recommended continuing him on aspirin and then follow up with Dr. Durga montoya outpatient neurologist and also with cardiology. I did discuss starting the patient on Coumadin with the patient compared with aspirin and discussed risks versus benefits. The pat tio is concerned about Coumadin as he states that he falls periodically and recently sustai ronald a laceration with the fall. He prefers to talk with his regular physician regarding this . We will continue him on aspirin. The patient had a hemoglobin A1c of 6.2. Cholesterol leve l 131, triglycerides 156, HDL of 31. He is currently on Lovastatin 40 mg, with Cardizem and lisinopril. We will continue these on discharge. Pt refused the 80 mg atorvastatin dose but does agree to continue his current med Past Medical History: Past Medical History Diagnosis Date Diabetes mellitus [...] arm and back Other chronic pain Stroke Past Surgical History Procedure Laterality Date Unlisted procedure arthroscopy Knee surgery rt knee, patella Leg surgery LLE Colonoscopy Cholecystectomy, laparoscopic 09/12/2012 Procedure: LAPAROSCOPIC - CHOLECYSTECTOMY; Surgeon: Jevon Vargas DO; Location: [facility] MAIN OR; Service: General; Laterality: N/A; Abdominal surgery Cholecystectomy Skin cancer excision 10/10/2012 Procedure: EXCISION - SKIN CANCER; Surgeon: Sy Fierro MD; Location: [facility] MAIN OR ; Service: Plastics; Laterality: Left; upper arm and upper back w/frozen section Esophagogastroduodenoscopy 03/03/2013 Procedure: ESOPHAGOGASTRODUODENOSCOPY; Surgeon: Howie Gibson MD; Location: [facility] ENDOSCOPY; S ervice: Gastroenterology; Laterality: N/A; Colonoscopy 03/04/2013 Procedure: COLONOSCOPY; Surgeon: Howie Gibson MD; Location: [facility] ENDOSCOPY; Service: Gastroe nterology; Laterality: N/A; Upper gastrointestinal endoscopy Skin biopsy Hernia repair 07/03/2013 Procedure: LAPAROSCOPIC - HERNIA - INCISIONAL; Surgeon: Jevon Vargas DO; Location: [facility] MAIN OR; Service: General; Laterality: N/A; Skin lesion excision Left 05/05/2014 Procedure: EXCISION - LESION - FROZEN SECTION; Surgeon: Sy Fierro MD; Location: [facility] MAIN OR; Service: Plastics; Laterality: Left; forearm Discharged Condition: Stable for discharge as stated above. Significant Diagnostic Studies: X-ray Shoulder Left Complete 2+v 05/06/2014 NORAH GR 1955 XR SHOULDER LEFT 05/06/2014 8:03 AM INDICATION: Pain COMPARISON: None TECHNIQUE: Left shoulder series, 2 views 05/06/2014 FINDINGS/ IMPRESSION: No acute fracture or dislocation. No bone, joint or soft tissue abnormality. Echo Cardiac Adult Complete 05/06/2014 Patient Name: NORAH GR Date of : 1955 P erforming Physician: Marcelino Edgar MD INDICATIONS STROKE/TIA, no IV CONCLUSIONS 1. Overall lef t ventricular systolic function is normal with, an EF between 65 - 70 %. 2. The diastolic fi lling pattern is normal for the age of the patient. 3. There is no evidence of pulmonary hyp ertension. 4. Bubble study was not done. FINDINGS -------- ECG rhythm: Sinus rhythm with e xtra systolic beats. Study: A 2-dimensional transthoracic echocardiogram with m-mode, spectr al and color flow Doppler was perfomed. Study: This was a technically adequate study. Left Ventricle: Overall left ventricular systolic function is normal with, an EF between 65 - 70 %. Left Ventricle: The left ventricle cavity size is normal. Left Ventricle: There is mild concentric left ventricular hypertrophy. Left Ventricle: No regional wall motion abnormali ties. Left Ventricle: The diastolic filling pattern is normal for the age of the patient. R ight Ventricle: The right ventricle is normal in size and function. Left Atrium: The left at rial size is normal. Right Atrium: The right atrial size is normal. Aortic Valve: The aortic valve is trileaflet, and appears anatomically normal. No aortic stenosis or regurgitation. Mitral Valve: The mitral valve is normal. Mitral Valve: There is trace mitral regurgitation . Tricuspid Valve: The tricuspid valve appears structurally normal. Tricuspid Valve: Trace tricuspid regurgitation present. Tricuspid Valve: There is no evidence of pulmonary hyperte nsion. Tricuspid Valve: The right ventricular systolic pressure (pulmonary artery systolic pressure), as measured by Doppler, is 20.65mmHg. Pulmonic Valve: Pulmonic valve appears stru cturally normal. Pulmonic Valve: Trace pulmonic regurgitation. Pericardium: There is a tri vial pericardial effusion present. IVC/Hepatic Veins: The IVC is normal size (1.5-2.5cm) and collapses <50% with sniff, consistent with central venous pressures of 10-15mmHg. Septum: B ubble study was not done. MEASUREMENTS IVC: 2.59 cm LA Major: 5.38 cm ED V(Teich): 123.13 ml IVSd: 1.25 cm LVIDd: 5.08 cm LVPWd: 1.18 cm LVOT Diam: 2.21 cm %FS: 42.75 % EF(Teich): 73.56 % ESV(Teich): 32.55 ml IVSs: 1.69 cm LVIDs: 2.91 cm LVPWs: 1.39 cm SV(Teich): 90.58 ml RA Major: 5.06 cm RVIDd: 3.04 cm LAESV(A-L): 5 4.01 ml LAESV Index (A-L): 23.68 ml/m2 LAAs A2C: 18.59 cm2 LAESV A-L A2C: 51.50 ml LAE SV MOD A2C: 47.76 ml LALs A2C: 5.69 cm LAAs A4C: 18.00 cm2 LAESV A-L A4C: 52.30 ml L AESV MOD A4C: 48.51 ml LALs A4C: 5.26 cm Ao Diam: 4.20 cm AV Cusp: 2.73 cm LA Diam: 4.46 cm LA/Ao: 1.06 %FS: 44.56 % EDV(Teich): 168.18 ml EF(Teich): 75.10 % ESV(Tei ch): 41.86 ml IVSd: 1.13 cm IVSs: 1.64 cm LVIDd: 5.82 cm LVIDs: 3.22 cm LVPWd: 1 .39 cm LVPWs: 1.83 cm SV(Teich): 126.32 ml IVC diameter: 2.34 cm IVC collapse: 1.32 cm IVC % collapse: 41.13 % HR: 65.68 BPM AV maxP.61 mmHg AV meanP.65 mmHg A V Vmax: 1.84 m/s AV Vmean: 1.05 m/s AV VTI: 33.52 cm VANE Vmax: 2.96 cm2 VANE (VTI): 3.11 cm2 LVCI Dopp: 3.16 l/minm2 LVCO Dopp: 7.21 l/min HR: 68.97 BPM LVOT maxP. 05 mmHg LVOT meanP.81 mmHg LVSI Dopp: 45.84 ml/m2 LVSV Dopp: 104.53 ml LVOT Vmax: 1.41 m/s LVOT Vmean: 1.03 m/s LVOT VTI: 27.06 cm MCO: 380.62 ms MV A Tracy: 0.80 m/s MV DecT: 247.04 ms MV E Tracy: 0.74 m/s MV E/A Ratio: 0.92 MV PHT: 54.69 ms MVA By P HT: 4.02 cm2 MV A Dur: 114.18 ms Septal e': 0.07 m/s Septal E/e': 9.46 Lateral e': 0.12 m/s Lateral E/e': 6.15 P Vein A: 0.26 m/s P Vein A Dur: 110.72 ms P Vein D: 0.39 m/s P Vein S/D Ratio: 0.98 P Vein S: 0.39 m/s RAP: 5 mmHg RVSP: 20.65 mmHg TR maxP.65 mmHg TR Vmax: 1.97 m/s TV A Tracy: 0.55 m/s TV Dec [place]: 3.25 m/s2 TV De c Time: 242.45 ms TV E Tracy: 0.78 m/s TV E/A Ratio: 1.42 [employer] Barge: KVW Authenticat ed by: Marcelino Edgar MD Report Date/Time: 05-06-2014 13:25:14 05/06/2014 1. Overall left ventricular systolic function is normal with, an EF between 65 - 70 %. 2. The diastolic filling pattern is normal for the age of the patient. 3. There is n o evidence of pulmonary hypertension. 4. Bubble study was not done. Ct Head And C-spine Non-con 05/06/2014 HISTORY: Left-sided numbness with fall. TECHNIQUE: 5-mm axial noncontrast imag es were acquired from the foramen magnum through the cranial vertex. COMPARISON: February FINDINGS: No acute intracranial hemorrhage, mass or infarct Basal cisterns are pat ent. The ventricles and sulci are normal in size and configuration Orbits are normal. Muco yamila thickening of the ethmoid air cells and opacification of the left aspect of the frontal sinus. Cerumen nearly filling the left external ear canal. Lesser amount of cerumen of the right external air canal. CERVICAL SPINE: No acute fracture or dislocation. Normal alignme nt of the cervical spine. Preservation of intervertebral disc space. Airway is patent. Mod erate degeneration at the atlantodental interval. Craniocervical junction is normal. 05/06/2014 1. No acute intracranial hemorrhage, mass or infarct. 2. No acute fracture o r dislocation of the cervical spine. 7 :23 AM Mri Brain Wo Contrast And Mra Head 05/06/2014 NORAH GR MRI BRAIN WO AND MRA HEAD 05/06/2014 1:57 PM HISTORY: 58 years. Male. Left-sided weakness. TECHNIQUE: Imaging was performed on a 1.5 [employer] MRI system. Mu ltiplanar sequences according to a standard department protocol were acquired without contra st. Noncontrast uuyk-ci-lvfyah MRA was acquired. Multiplanar MIP reconstructions were perfo rmed. COMPARISON: CT head dated 05/06/2012 and MRI brain dated 07/08/2013 FINDINGS: Craniocer vical junction, pineal, pituitary, ronaldo, and corpus callosum are unremarkable. Mild diffuse cerebral atrophy. No restricted diffusion to represent acute infarct. A few small scattered areas of increased T2 and FLAIR signal within the supratentorial white matter that are nonsp ecific but most likely represent chronic white matter microvascular ischemic gliosis, stable . Mucous retention cyst in the left frontal sinus. Normal flow voids within the anterior and posterior circulation. The mastoid sinuses are clear. No mass within the CP angle cisterns. The orbits and their contents are normal. No susceptibility artifact. Examination is mildly motion degraded. MRA: Patent anterior communicating artery. Vertebral arteries are codomin ant. No focal stenosis, dissection, vasculitis, or aneurysm greater than 3 mm. Posterior com municating arteries are not nonvisualized may be diminutive in size or absent. 05/06/2014 1. Diffuse cerebral atrophy with probable mild chronic white matter microvascu lar ischemic gliosis. 2. Unremarkable MRA of the cerebral arterial system. No stenosis, oc clusion, aneurysm or vasculitis noted. Electronically signed by Neal Ramírez DO on 015 2:06 PM Discharge Vitals: Filed Vitals: 05/07/14 0356 05/07/14 0703 05/07/14 1104 05/07/14 1545 BP: 143/80 158/84 158/78 156/75 Pulse: 81 79 74 75 Temp: 98.5 F (36.9 C) 97.5 F (36.4 C) 98 F (36.7 C) TempSrc: Axillary Oral Oral Oral Resp: 18 18 18 18 Height: Weight: SpO2: 95% 95% 92% Discharge Exam: PHYSICAL EXAMINATION GENERAL: Elderly gentleman very pleasant, usually conversant. HEENT: Normocephalic, atraumatic. Pupils are equal, round, and reactive to light. Direct co nsensual. Extraocular muscles are intact. Pharynx with no erythema or exudate. NECK: Supple, without adenopathy or thyromegaly. No carotid bruits. LUNGS: Clear to auscultation. HEART: Regular rate and rhythm, without murmur. ABDOMEN: Soft, positive bowel sounds, nontender. No hepatosplenomegaly. No rebound. No guar ding. EXTREMITIES: No cyanosis, clubbing, or edema. NEUROLOGIC: He is alert and oriented x3. Cranial nerves II through XII are intact. Motor 5/ 5 upper and lower extremities, symmetric bilaterally. Sensory intact to light touch, upper a nd lower extremities, symmetric bilaterally. Normal gait. No peripheral visual field deficit s. Normal cognition. No neglect. No limb ataxia. LABS: Recent Labs Lab 05/07/1445605/06/14526 WBC 9.65 8.44 HGB 12.8* 12.2* HCT 39.2 38.1* PLT 251 264 NEUTOPHILPCT 59.65 61.41 MONOPCT 9.90 10.35 Recent Labs Lab 05/07/1445605/06/14526 NA 140 142 K 3.9 3.8 CL 106 108 CO2 30 28 BUN 19 19 CREATININE 1.20 1.15 PROT 6.7 7.1 BILITOT 0.3 0.2 ALT 11 18 AST 12 17 Phosphorus: Recent Labs Lab 05/07/14456 PHOS 3.7 Recent Labs Lab 05/07/14456 MG 1.9 No results for input(s): AMYLASE in the last 168 hours. No results for input(s): LIPASE in the last 168 hours. No results for input(s): PHART, PO2ART, HQE3INC, X3XEDTZM, BEART in the last 168 hours. Recent Labs Lab 05/06/14526 APTT 27 INR 1.0 No results for input(s): TSH, T3FREE, FREET4 in the last 168 hours. Recent Labs Lab 05/06/14526 CKTOTAL 110 CKMBINDEX 1.8 Disposition: home Follow up: Edin Gutiérrez, DO [address] [place] [address] In 2 days [facility] Emergency Department [address] [facility] [address] If symptoms worsen, As needed Aakash Rhodes MD [address] [facility] [address] Schedule an appointment as soon as possible for a visit in 1 week Michael Sims MD [address] [facility] [address] Schedule an appointment as soon as possible for a visit in 1 week Medication List START taking these medications aspirin 325 MG tablet QTY: 30 tablet Refills: 11 Take 1 tablet by mouth daily with breakfast. Replaces: aspirin 81 MG chewable tablet CHANGE how you take these medications diltiazem 240 MG 24 hr capsule QTY: 15 capsule Refills: 0 Commonly known as: CARDIZEM CD Take 1 capsule by mouth daily. 180 mg at hs What changed: additional instructions insulin glargine 100 UNIT/ML injection QTY: 10 mL Refills: 12 Commonly known as: LANTUS Inject 82 Units into the skin nightly. What changed: how much to take * lisinopril 40 MG tablet Refills: 0 Commonly known as: ZESTRIL What changed: Another medication with the same name was added. Make sure you understand ho w and when to take each. * lisinopril 40 MG tablet QTY: 30 tablet Refills: 11 Commonly known as: ZESTRIL Take 1 tablet by mouth every evening. What changed: You were already taking a medication with the same name, and this prescripti on was added. Make sure you understand how and when to take each. * Notice: This list has 2 medication(s) [...] tablet Refills: 0 Commonly known as: ABILIFY BEANO Tabs Refills: 0 calcium carbonate 500 MG chewable tablet Refills: 0 Commonly known as: TUMS clonazePAM 1 MG tablet Refills: 0 Commonly known as: KlonoPIN clonidine Refills: 0 Commonly known as: CATAPRES DULERA 100-5 MCG/ACT inhaler Refills: 0 Generic drug: mometasone-formoterol furosemide 20 MG tablet QTY: 7 tablet Refills: 0 Commonly known as: LASIX Take 1 tablet by mouth daily. * HYDROcodone-acetaminophen 5-325 MG per tablet Refills: 0 Commonly known as: NORCO * HYDROcodone-acetaminophen 7.5-325 MG per tablet QTY: 20 tablet Refills: 0 Commonly known as: NORCO Take 1 tablet by mouth every 6 (six) hours as needed for Pain. * HYDROcodone-acetaminophen 5-325 MG per tablet QTY: 30 tablet Refills: 0 Commonly known as: NORCO Take 1 tablet by mouth every 6 (six) hours as needed for Pain. lamoTRIgine 100 MG tablet Refills: 0 Commonly known as: LaMICtal zuwbwlrxz-xbysyous-lpzjrxxbm hydroxide-simethicone Refills: 0 LORazepam 1 MG tablet [...] as: SPIRIVA VENTOLIN HFA IN Refills: 0 * Notice: This list has 3 medication(s) that are the same as other medications prescribed for you. Read the directions carefully, and ask your doctor or other care provider to revie w them with you. 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 You may get the following medications from any pharmacy - aspirin 325 MG tablet - diltiazem 240 MG 24 hr capsule - lisinopril 40 MG tablet Lorna Looney MD 05/07/2014 6:57 PM Discharge took more than 35 minutes, to include final examination, discussion of admission, and preparation of prescriptions, instructions for ongoing care, follow up and dictation of summary. documented in this enco unter Medications at Time of Discharge + + [...] Progress Notes Conversion Transaction, Provider Unknown - 05/07/2014 7:39 PM PDTFormatting of this note m ight be different from the original. Nurse Progress Note by Mel Hastings RN at 05/07/141938 Author: Mel Hastings RN Service: (none) Author Type: Registered Nurse Filed: 05/07/141939 Date of Service: 05/07/141938 Status: Signed Capture Manager: Mel Hastings RN (Registered Nurse) Pt discharged to [facility] via [facility]. Discharge orders faxed to facility. [facility] reji re of discharge this evening. Answered all questions. Mel Hastings RN onver ivana Transaction, Provider Unknown - 05/07/2014 6:39 PM PDT Progress Notes by Di Mcleod RN at 05/07/141838 Author: Di Mcledo RN Service: (none) Author Type: Registered Nurse Filed: 05/07/141841 Date of Service: 05/07/141838 Status: Signed Capture Manager: Di Mcleod RN (Registered Nurse) VSS this shift, no C/O pain of discomfort. Eating and drinking without difficulty. onver ivana Transaction, Provider Unknown - 05/07/2014 9:30 AM PDT Therapy Progress Note by Arlin Flores PT at 05/07/14 1421 Author: Arlin Flores PT Service: (none) Author Type: Physical Therapist Filed: 05/07/14 1024 Date of Service: 05/07/14929 Status: Signed Capture Manager: Arlin Flores PT (Physical Therapist) 05/07/14929 PT Last Visit PT Received On 05/07/14 Reason for Treatment Stroke Requires PT Follow Up Awaiting tx order Follow up PT Only? No Assistance Required Independent Precautions Other Precautions fall risk Other Comments Comments upon PT arrival pt. supine in bed. Pt. agreeable to 6MWT. BP assessed prior to i nitiating test as nursing notes indicate episodes of hypertension. BP seated @EOB 154/85, standing 135/68, & BP post 6MWT 180/90. Once pt. returned to bed BP 133/84. Pt. amb. ~ 1, 585ft in 6MWT which is short for his age range utilizing the 60-69 range, as he would have t o amb. 1,800ft+. Though pt. indicates that on average he would only amb. 1/4of a mile. Joselyn s the patient is at his baseline. The patient is safe to dc back to [facility] once BP/medically stable. Pt. supine in bed @ end of session w/call light within reach to verb needs. Cognition Overall Cognitive Status (functional, w/developmental delay ) Bed Mobility Supine to Sit Modified independent (HOB elevated no bed rail use ) Sit to Supine Independent Transfers Sit to/from Stand Independent Mobility Weight Bearing Status WBAT RLE;WBAT LLE Ambulation Assistance Independent Maximal Ambulation Distance (feet) 1,585ft on 6MWT +200ft back to room Total Ambulation Distance (feet) 1,785ft Distance limited by? Therapist/staff discretion Pattern Alternating;Wide base Assistive Device None Activity Tolerance Activity Tolerance Patient tolerated treatment without report of fatigue Plan Treatment/Interventions Discharge skilled PT services Recommendation Recommendations Prior Setting onver ivana [place] Provider Unknown - 05/07/2014 6:15 AM PDT Nurse Progress Note by Mayelin Kim RN at 05/07/14614 Author: Mayelin Kim RN Service: (none) Author Type: Registered Nurse Filed: 05/07/14 0617 Date of Service: 05/07/14 0615 Status: Signed Capture Manager: Mayelin Kim RN (Registered Nurse) Pt had one elevated BP 178/83 @ 0013,pt had just ambulated to bathroom, rechecked, 155/78, rest of vital signs stable throughout night. Pt remained afebrile. Rest of night was unevent ful. Will continue to monitor pt and give report to oncoming nurse. Mayelin Kim RN. onver ivana Transaction, Provider Unknown - 05/06/2014 3:20 PM PDT Therapy Progress Note by Arlin Flores PT at 05/06/14 1520 Author: Arlin Flores PT Service: (none) Author Type: Physical Therapist Filed: 05/07/14 0800 Date of Service: 05/06/14 1520 Status: Addendum Capture Manager: Arlin Flores PT (Physical Therapist) Related Notes: Original Note by Arlin Flores PT (Physical Therapist) filed at 05/06/14 1 654 05/06/14 1520 PT Last Visit PT Received On 05/06/14 Reason for Treatment Stroke Requires PT Follow Up Yes Follow up PT Only? No Focus for Next Treatment Stair Training (Higher level balance; Functional tolerance training) PT Eval/Reassessment Date 05/06/14 Assistance Required 1 person Precautions Other Precautions Fall risk Other Comments Comments Performed chart review and evaluation. Pt agreeable to PT by SPT and PT. Pt found lying in bed. Pt reports mild pain in B toes with amb, but tolerable to continue amb. Pt has significant forward lean and has bouts of increased aaron putting him at an increase fall risk. Tinetti and DGI performed. Pt negiotated stairs with handrail, but PLOF used no rail. Pt has good LE and UE strength and ROM. Pt needs high level balance for community amb and s afety to prevent falls. Pt left lying in bed with call light in reach. Cognition Overall Cognitive Status Impaired Orientation Level Oriented Comments Developmental Delayed per chart Bed Mobility Supine to Sit To right;Modified independent (HOB Elevated) Sit to Supine Independent;To left (HOB Elevated) Transfers Sit to/from Stand Independent Mobility Weight Bearing Status WBAT RLE;WBAT LLE Ambulation Assistance Standby assist;Safety concerns (significant forward trunk lean) Maximal Ambulation Distance (feet) [id number]; 1x80ft Total Ambulation Distance (feet) 580ft Distance limited by? Therapist/staff discretion Pattern Alternating;Wide base Assistive Device None Stairs Assistance Standby assist Number of Stairs 1 flight Number of stairs limited by? Patient's ability (SOB;) Stair Management Technique Rail on right ascending;Xbrr-mhny-jmyz;Step-to (R rail descend, step-to descend; Advised Pt to use rail) Balance Balance Yes (Tinetti Balance Gait performed) High Level Balance Head Turn Right;Left;Other (comment) (Had difficulty with vertical and downward gaze) Eyes Closed Mild increase in sway Turn 360 Degree Steady;Continuous;Less than 4 seconds (x2) High Level Comments Stepping over objects and around objects without LOB Activity Tolerance Activity Tolerance Patient limited by shortness of breath (SOB) Safety Devices Safety Devices in Place Not applicable Type of Devices (Call light within reach) Plan Treatment/Interventions Balance training;Gait training;Stair training PT Frequency 5-7x/wk;Once per day;Twice a day Care Duration (# of days) 5 # of days Recommendation Recommendations Prior Setting Equipment Recommended None Barriers to Discharge Cognitive Deficits Impacting Functional Warrick;Physical Deficit s Impacting Functional Warrick Functional Limitation - G Codes Mobility: Walking & Moving Around: The patient scored 23/28 on the Tinetti Balance Assessment indicating moderate fall risk & ~18% impairment. Patient would benefit from continued physical therapy to focus on higher l evel balance to help reduce fall risk & promote independent functional mobility prior to dis charge. onver ivana Transaction, Provider Unknown - 05/06/2014 3:13 PM PDT Progress Notes by Jenn Flores RN at 05/06/14 5186 Author: Jenn Flores RN Service: (none) Author Type: Registered Nurse Filed: 05/06/14 4545 Date of Service: 05/06/141512 Status: Signed Capture Manager: Jenn Flores RN (Registered Nurse) Patient admitted from ED without IV. IV started and skin assessment performed. Patient repo rts that he had a cyst removed from his left forearm on 3/30/15 and is to keep the tape over the incision on for two weeks until he follows up with the doctor at that time. Patient ref used to let me remove tape for a picture. Wound care consult ordered. Patient currently deny ing pain and vitals are stable. Will continue to monitor. Jenn Flores RN onver ivana Rodríguezaction, Provider Unknown - 05/06/2014 2:14 PM PDT Therapy Progress Note by TORY Chavira at 05/06/14 1414 Author: TORY Chavira Service: (none) Author Type: Occupational Therapist Filed: 05/06/14 1547 Date of Service: 05/06/141413 Status: Signed Capture Manager: TORY Chavira (Occupational Therapist) 05/06/14 1414 Precautions Other Precautions fall risk Home Environment Type of Home Assisted living ([facility]) Home Exterior Layout Entry steps none Home Interior Layout Lives on main level with bedroom/bathroom Bathroom Shower/Tub Tub/shower unit Bathroom Toilet Raised Bathroom Equipment Grab bars in shower/bath;Grab bars outside of shower/bath;Shower chair;H and-held shower head;Grab bars at toilet Bathroom Accessibility Accessible to equipment needs Home Equipment Walker front wheeled;Shower head hand held Prior Function Level of Warrick Independent with functional mobility;Assist with ADLs;Assist with IAD Ls Lives With (shares space with a roommate (share a bathrm)) Receives Help From Other (Comment) ([facility] staff) ADL Assistance Needs assistance Bath Moderate assist Dressing Moderate assist Grooming Minimal assist (for shaving) Feeding Independent Home ADL's (done by [facility] staff) Employment Retired for disability;On disability Leisure Hobbies-yes (Comment) ([employer]-kaela cameron) Comments Pt. receives all 3 meals from facility; they assist with laundry, medication manag ement, and cleaning. Pt. uses dial-a-ride for transportation; pt. has assist from ex in-laws to assist with finances. ADL Where Eating Assessed Supine in bed, HOB elevated Eating Assistance Independent Grooming Assistance Supervision (seated in bed, after s/u) LE Dressing Assistance Moderate assist (pt. required assist to don socks) Lower body dressing impacted by Endurance Toileting Assistance with Device Supervision (pt. using urinal) Toileting impacted by Endurance Functional Assistance Minimal assist Additional Comments Pt. willing to participate in OT this PM. Provided pt. with AE handout and recommendations. Pt. was able to t/f from supine to EOB with minimal assist. Pt. was arnold ble to don his sock (with he was unable to do prior to admission). Pt. then provided cueing and demonstrated use of sockaid. Pt. would benefit from further skilled OT services to educa te in AE training and ADLs to increase independence. Pt. at baseline, was receiving assist. Pt. then was able to t/f from EOB to supine with supervision. Pt. left seated in bed, call l ight within reach. Vision-Basic Assessment Current Vision Reading glasses Cognition Overall Cognitive Status WFL Orientation Level Oriented Comments developmentally delayed per case management note Sensation Light Touch No apparent deficits (pt. reports no numbness/tingling at this time) RUE Assessment RUE Assessment WFL LUE Assessment LUE Assessment WFL Hand Function Gross Grasp Functional Functional Gross Grasp Able to grasp objects without difficulty Coordination Functional (pt. is right handed) Assessment Assessment Decreased ADL status;Decreased endurance;Decreased UE strength;Decreased fine mo tor control;Decreased self-care trans Prognosis Good Goal Formulation Patient;Family ADL Goals Pt Will Perform Grooming Standing at sink;With min assist Pt Will Perform LE Dressing At edge of bed;In chair;Supervision;With adaptive equipment LE Dressing Adaptive Equipment Tinsel Machine Operator;Sock aid Functional Transfer Goals Pt Will Perform All Functional Transfers With supervision Plan Treatment Interventions ADL retraining;Functional transfer training;Functional dynamic acti vities;UE strengthening;Therapeutic exercises;Endurance training;Patient/Family training;Equ ipment eval/education;Compensatory technique education OT Frequency QD;5x/wk Requires OT Follow Up Awaiting tx order Recommendation Recommendation Return to prior living conditions ([facility] staff to assist with ADLs/IADLs) Equipment Recommended Tinsel Machine Operator;Sock aid;Sponge long handled OT Ready for Discharge Yes Education Completed: Education Topic: OT role, ADLs, AE recommendations Completed with: Patient Completed by: Written Material, Verbal Education, Demonstration Response to Education: Stated Understanding, Returned Demonstration, Reinforcement Elisabeth mcdonough for Education Understanding Occupational Therapy Plan: Continue OT treatment per POC-Q/5x/wk The following recommendations are made for d/c planning at this time: [facility]--return to prior living with assist from [facility] staff Barriers to d/c at this time include: Equipment needs cafeteria supervisor, sockaid, shower brush Physical deficits impacting functional independence Self-care deficits impacting functional independence Functional Limitation - G Codes Self-Care: $[id number] Current Status : CJ - At least 20% but less than 40% impaired, limited or restricted [id number] Projected Goal Status : CJ - At least 20% but less than 40% impaired, limited or res tricted Rationale: Pt. Scored 3 FIM level of moderate assist for lower body dressing, 05/13 FIM le tracy of minimal assist for transfer from supine to EOB; 06/12 FIM supervision onver ivana Rodríguezaction, Provider Unknown - 05/06/2014 12:46 PM PDT Progress Notes by Asher Matson RPH at 05/06/14 1246 Author: Asher Matson RPH Service: Pharmacy Author Type: Pharmacist Filed: 05/06/14 1246 Date of Service: 05/06/141245 Status: Signed Capture Manager: Asher Matson RPH (Pharmacist) Renal Dosing Monitoring: Norah Gr 58 y.o. male Pharmacy dosing for renal function per Dr. Box Estimated Creatinine Clearance: 87 mL/min (by C-G formula based on Cr of 1.15). No changes at this time Pharmacy will continue monitoring patient for appropriate dosing per renal function. 05/06/2014 12:46 PM Pharmacist: Asher Matson onver ivana Transaction, Provider Unknown - 05/06/2014 10:04 AM PDT Case Management by QUINN Lea at 05/06/14 100 Author: QUINN Lea Service: (none) Author Type: Body Team Member Filed: 05/06/14 1002 Date of Service: 05/06/14 100 Status: Signed Capture Manager: QUINN Lea (Body Team Member) This pt is case managed by the [place] [facility]. The pt's care plan guidel andrei are as follows. Please contact the Emergency Department Marketing Recruiter for assistance as needed Care Recommendation: Norah has a printed Crisis Plan at the Assisted Living Facility that he is to follow befo re coming to the ED for non life-threatening issues. Please discuss with Norah when he pres ents to the ED The following guidelines were formulated by the ED Care Guidelines Committee of the [facility] on May 21, 2013. No controlled substances should be administered in the ED or prescribed from the ED for sub jective pain. Past Medical & Surgical History: Primary Care Provider (PCP) is CRUZITO GUTIÉRREZ DO at [phone] . Notify PCP if givi ng any additional narcotics for objective findings. PCP supports enrollment in the [place] [facility]. Medical History: Diabetes-He is on a sliding scale after meals, routine insulin before meals and takes Lantu s at night. A1C April, = 7.9%. He was referred to an real estate associate attorney in February, . Chest Pain- Coronary Angiography (10/20) showed no significant underlying CAD. His cardiolo gist is Dr Sterling. COPD- He take symbicort, Spiriva and albuterol. Hypertension- Patient feels that this is related to his anxiety. Obstructive Sleep apnea- He is non-compliant with his CPAP-he has been referred to Dr. Cortez. History of ARF- He has been referred to Dr. Lyons for nephrology. Atrial Fibrillation-He is no longer on Plavix-taking asa. Developmental delay GI Bleed- EGD in February, shows 1.2 cm nodule at the GE junction (requiring management in [place] at ), rectal ulcer and internal hemorrhoids. Hernia- He has been referred to Dr. Vargas. Problem List: He needs to make regular visits to see his PCP in light of his chronic conditions. This patient is developmentally delayed and has multiple chronic conditions and providers. He would benefit from having a Marketing Recruiter assist him in coordinating his care. There is an alternate plan in place for Norah- He may take a taxi (paid for my ACCP) to the Urgent Care Clinic ([facility]) for evaluation instead of the ED. The have been provide d his pertinent medical records. Norah and the [facility] are aware of this plan. History of Behavioral Health Conditions: He has depression and anxiety- This is managed by his PCP. He takes Paxil and abilify. He has been referred to [facility] in February. According to [facility], he never establis [facility] care. Patient has now been scheduled twice and cancels at the last minute. Pain/Opioid Agreement: Norah has an order at the Assisted Living Facility for hydrocodone as needed. He does not have a diagnosis of chronic pain. Please see DRILL RIG OPERATOR for prescribing history. Social History or Identified Risk: - Fall Risk - Non adherence - Transportation Issues Social History: Norah lives at [facility] . He may require another level of car e given the number of ED visits at enrollment (22 in the last year)-please contact his [facility] C ase Import/Export Administrator (Fermin Preston) to discuss. Norah is developmentally delayed- Patient may benefit from having someone with him at his d octor's appointments. He has applied for Dial-A-Ride services (April,) Applied for a Health Home for this client through [facility]- please review Provider One to determ ine if one has been assigned. Additional Information: This patient is case managed by the [place] [facility]. Please contact the E D Marketing Recruiter at your hospital for any immediate or post ED discharge needs this patient ma y have. Please contact Tari at [facility] at when patient p resents to ED. You may also contact for additional information These are guidelines and the provider should exercise clinical judgment when providing care . docume nted in this encounter H&P Notes Agustín Box MD - 05/06/2014 9:05 AM PDTFormatting of this note might be different f rom the original. H&P by Agustín Box MD at 05/06/14904 Author: Agustín Box MD Service: Hospitalist Author Type: Physician Filed: 05/06/14 1208 Date of Service: 05/06/14904 Status: Signed Capture Manager: Agustín Box MD (Physician) [facility] Service: Hospitalist Admission History & Physical Pt: Norah Gr AGE/SEX: 58 y.o. male ROOM: 10/15 PCP: EDIN GUTIÉRREZ : 1955 TODAY'S DATE: 05/06/2014 Date of Admission: 05/06/2014 Chief Complaint: Left Sided weakness History of Present Illness: The patient is a 57 y.o. male with significant past medical history of HTN, DM Type 2, Paro xysmal Atrial Fibrillation, COPD and WARD who presented to the ER with complaints of left-lauren ed weakness. He was recently hospitalized for abdominal pain and went home after CT scan. He was at same day surgery for basal cell carcinoma couple of days ago. He woke up from sle ep to go to bathroom and suddenly noticed left-sided weakness and decided to come to emergen cy department. He said his whole left body was weak and he sat on a floor. Slowly started getting better. He came to emergency department and he was feeling better but still having weakness. By the time I saw him he said his weakness has already been resolved. He is deny ing having any other symptoms of abdominal pain, dizziness, lightheadedness, or chest pain. He had a CT scan of her chest that was negative. He Had no CP, SOB, N/V, Diarrhea, Abdominal pain or KELLEY. No constipation or change in bowel habits. No orthopnea or PND. Appetite is good without abdominal bloating. No cough or fever. No dizziness, lightheadedness or any symptoms suggestive of stroke. PMHx: Past Medical History Diagnosis Date Diabetes mellitus [...] arm and back Other chronic pain Stroke PSHx: Past Surgical History Procedure Laterality Date Unlisted procedure arthroscopy Knee surgery rt knee, patella Leg surgery LLE Colonoscopy Cholecystectomy, laparoscopic 09/12/2012 Procedure: LAPAROSCOPIC - CHOLECYSTECTOMY; Surgeon: Jevon Vargas DO; Location: [facility] MAIN OR; Service: General; Laterality: N/A; Abdominal surgery Cholecystectomy Skin cancer excision 10/10/2012 Procedure: EXCISION - SKIN CANCER; Surgeon: Sy Fierro MD; Location: [facility] MAIN OR ; Service: Plastics; Laterality: Left; upper arm and upper back w/frozen section Esophagogastroduodenoscopy 03/03/2013 Procedure: ESOPHAGOGASTRODUODENOSCOPY; Surgeon: Howie Gibson MD; Location: [facility] ENDOSCOPY; S ervice: Gastroenterology; Laterality: N/A; Colonoscopy 03/04/2013 Procedure: COLONOSCOPY; Surgeon: Howie Gibson MD; Location: [facility] ENDOSCOPY; Service: Gastroe nterology; Laterality: N/A; Upper gastrointestinal endoscopy Skin biopsy Hernia repair 07/03/2013 Procedure: LAPAROSCOPIC - HERNIA - INCISIONAL; Surgeon: Jevon Vargas DO; Location: [facility] MAIN OR; Service: General; Laterality: N/A; Skin lesion excision Left 05/05/2014 Procedure: EXCISION - LESION - FROZEN SECTION; Surgeon: Sy Fierro MD; Location: [facility] MAIN OR; Service: Plastics; Laterality: Left; forearm Prior To admission Meds: Prior to Admission medications Medication Sig Start Date End Date Taking? Authorizing Provider Albuterol Sulfate (VENTOLIN HFA IN) Inhale 2 puffs into the lungs as needed. 108 mcg/act Historical Provider Ppquc-U-Uyjeufddwhsgb (BEANO) TABS Take 150 Units by mouth [...] as needed for Anxi ety. Historical Provider clonidine (CATAPRES) Place 1 patch onto the skin once a week. 0.2mg/hr Historical Provid er diltiazem (CARDIZEM CD) 240 MG 24 hr capsule Take 1 capsule by mouth daily. Patient taking differently: Take 180 mg by mouth daily. 180 mg at hs 11/30/13 11/30/14 [facility] calryn Mae MD diltiazem (DILACOR XR) 240 MG 24 hr capsule Take 240 mg by mouth daily with breakfast. H istorical Provider docusate sodium (COLACE) 100 MG capsule Take [...] needed for Pain. Historical Provider HYDROcodone-acetaminophen (NORCO) 5-325 MG per tablet Take 1 tablet by mouth every 6 (six) hours as needed for Pain. 05/05/14 05/15/14 Sy Fierro MD HYDROcodone-acetaminophen (NORCO) 7.5-325 MG per tablet Take [...] 100 mg by mouth nightly. Historical Provider jjqwqlzhi-smydmgrs-etiqejpjn hydroxide-simethicone Take 40 mLs by mouth daily as needed. Historical Provider lisinopril (ZESTRIL) 40 MG tablet Take 40 mg by mouth every evening. 03/05/13 03/05/14 Scott Martínez MD LORazepam (ATIVAN) 1 MG tablet Take [...] 20 mg by mouth nightly. Historical Provider psyllium (METAMUCIL SMOOTH TEXTURE) 28 % packet Take 1 packet by mouth daily. 04/28/14 Joe Chao MD tamsulosin (FLOMAX) 0.4 MG capsule Take 0.4 mg by mouth 2 (two) times daily. Administer 30 minutes after the same meal each day. Capsules should be swallowed whole; do not crush, chew , or open Historical Provider tiotropium (SPIRIVA) 18 MCG inhalation capsule Inhale 18 mcg into the lungs daily. Histo rical Provider Medications scheduled: Allergies: Allergies Allergen Reactions Vitamin B12 Rash Family Hx: Family History Problem Relation Age of Onset Heart disease Father Heart disease Sister Diabetes type II Sister Heart Problems Brother Social Hx: History Social History Marital Status: Spouse Name: [...] on file Social History Narrative Lives in senior care, IADL, full code Review of Symptoms: Only Highlighted one are positive and rest are negative Constitutional: Fever, chills, diaphoresis, activity change, appetite change, fatigue and u nexpected weight change. HENT: Hearing loss, ear pain, nosebleeds, congestion, facial swelling, rhinorrhea, neck allen n, neck stiffness, dental problem, tinnitus and ear discharge. Eyes: Photophobia, pain, discharge, redness, itching and visual disturbance. Respiratory: Apnea, cough, chest tightness, shortness of breath and wheezing. Cardiovascular: Chest pain, palpitations and leg swelling. Gastrointestinal: Nausea, vomiting, abdominal pain, diarrhea, constipation, blood in stool, abdominal distention, anal bleeding and rectal pain. Genitourinary: Dysuria, frequency, hematuria, flank pain, difficulty urinating and dyspareu madhu. Musculoskeletal: Back pain, joint swelling, arthralgias and gait problem. Skin: Color change, pallor, rash and wound. Neurological: Dizziness, tremors, seizures, syncope, weakness, light-headedness, numbness a nd headaches. Hematological: Adenopathy. Does not bruise/bleed easily. Psychiatric/Behavioral: Suicidal ideas, hallucinations, behavioral problems, confusion and agitation. Objective: Vital Signs: BP 187/84 | Pulse 74 | Temp(Src) 97.8 F (36.6 C) (Oral) | Resp 16 | Wt 109.2 kg (240 lb 11.9 oz) | SpO2 94% Physical Exam: Constitutional: Oriented to person, place, and time. appears well-developed and well-nouris hed. HEENT: Head: Normocephalic and atraumatic. Nose: Nose [...] and oriented to person, place, and time. Displays normal reflexes. No cranial nerve deficit. Exhibits normal muscle tone. Coordination normal. Skin: Skin is warm and dry. No rash noted. No erythema. No pallor. Psychiatric: Has a normal mood and affect. Behavior is normal. Judgment normal. Data: Recent Labs Lab 05/06/14526 WBC 8.44 HGB 12.2* HCT 38.1* PLT 264 NEUTOPHILPCT 61.41 MONOPCT 10.35 Recent Labs Lab 05/06/14 05 NA 142 K 3.8 CL 108 CO2 28 BUN 19 CREATININE 1.15 PROT 7.1 BILITOT 0.2 ALT 18 AST 17 Phosphorus: Lab Results Component Value Date PHOS 3.2 12/03/2013 Recent Labs Lab 05/06/14 05 APTT 27 INR 1.0 Recent Labs Lab 05/06/14526 CKTOTAL 110 CKMBINDEX 1.8 Problem List: Principal Problem: TIA (transient ischemic attack) Active Problems: Diabetes mellitus, type 2 HTN (hypertension) Paroxysmal atrial fibrillation Assessment and Plan: The patient is a 57 y.o. male with significant past medical history of HTN, DM Type 2, Paro xysmal Atrial Fibrillation, COPD and WARD who presented to the ER with complaints of left-lauren ed weakness. Principal Problem: TIA (transient ischemic attack): Most of his symptom is has already been resolved. He had a recent ultrasound carotid Dopp ler within 6 months. I do not think I need to do another ultrasound. Clinical MRI of her b rain. I will do that echocardiogram as well. He will be on aspirin and statins Diabetes mellitus, type 2: Going to continue him on insulin with a low-dose what was he taking at home along with ins ulin sliding scale HTN (hypertension): Blood pressure is on a higher side. Continue his home medicine Paroxysmal atrial fibrillation He is in normal sinus rhythm. Since he had a weakness and possibility of TIA, anticoagula tion should be a consideration at this time. I will hold off for now because I want to look at a MRI first Patient's old records and labs were reviewed in detail and summarized. Code Status: Prior Primary Care Physician: EDIN Box MD, FACP 05/06/2014 9:05 AM Dictation software, [employer], used which may contain error for similar sounding words even af ter review. Personal communication requested for any clarification. documented in this encounter Consult Notes Conversion Transaction, Provider Unknown - 05/07/2014 10:22 AM PDTFormatting of this note m ight be different from the original. Consults by Evette Walters RN at 05/07/14 1022 Author: Evette Walters RN Service: Wound/Ostomy Care Author Type: Registered Nurse Filed: 05/07/14 1023 Date of Service: 05/07/14 1022 Status: Signed Capture Manager: Evette Walters RN (Registered Nurse) Consult Orders: 1. Wound Care Evaluation and Treat [[id number]] ordered by Alisha Bernstein MD at 05/06/14 1512 Wound care consulted for an incision on the arm that is 2 days old. Steri strips are intact ; wound is clean and dry. Ok to leave open to air. Do not remove steri strips. Evette Walters RN 05/07/2014 10:23 AM docume nted in this encounter ED Notes Conversion Transaction, Provider Unknown - 05/06/2014 7:47 AM PDTFormatting of this note m ight be different from the original. ED Notes by Omaira Leslie RN at 05/06/14746 Author: Omaira Leslie RN Service: Emergency Department Author Type: Registered Nurse Filed: 05/06/14747 Date of Service: 05/06/14746 Status: Signed Capture Manager: Omaira Leslie RN (Registered Nurse) Patient placed call light on and asked for food. Diabetic food tray ordered on his behalf p er his request. Omaira Leslie RN 05/06/14747 hNorah redding MD - 05/06/2014 7:18 AM PDTFormatting of this note might be different from the or iginal. ED Provider Notes by Norah Barker MD at 05/06/14717 Author: Norah Barker MD Service: Emergency Department Author Type: Physician Filed: 05/06/14810 Date of Service: 05/06/14717 Status: Signed Capture Manager: Norah Barker MD (Physician) [facility] Department of Emergency Medicine No flowsheet data found. History of Present Illness Patient Identification Norah Gr is a 58 y.o. male. Patient information was obtained from patient. History/Exam limitations: none. Patient presented to the Emergency Department [place] [id number] Room:10/15 Chief Complaint Chief Complaint Patient presents with Numbness L side Fatigue generalized 58 y.o. male with left-sided weakness. Patient states that he woke up and tried to get up around 3 AM. He states he fell and hit the back of his head. Since that time he has notice d that the left side of his body has felt weak with associated numbness and tingling. He is unsure if weakness was present prior to the fall and caused it or if it developed as a resu lt of a fall. He feels that he may have injured his left shoulder that no other significant injuries. No known loss of consciousness. No loss of continence. Symptoms are described as moderate. Worse with pushing on the left shoulder or trying to stand. Mild right-sided headache. No blurry vision. He states that it feels a little bit hard to get his words out . Primary Care Doctor: EDIN GUTIÉRREZ Past Medical [...] arm and back Other chronic pain Stroke Past Surgical History Procedure Laterality Date Unlisted procedure arthroscopy Knee surgery rt knee, patella Leg surgery LLE Colonoscopy Cholecystectomy, laparoscopic 09/12/2012 Procedure: LAPAROSCOPIC - CHOLECYSTECTOMY; Surgeon: Jevon Vargas DO; Location: [facility] MAIN OR; Service: General; Laterality: N/A; Abdominal surgery Cholecystectomy Skin cancer excision 10/10/2012 Procedure: EXCISION - SKIN CANCER; Surgeon: Sy Fierro MD; Location: [facility] MAIN OR ; Service: Plastics; Laterality: Left; upper arm and upper back w/frozen section Esophagogastroduodenoscopy 03/03/2013 Procedure: ESOPHAGOGASTRODUODENOSCOPY; Surgeon: Howie Gibson MD; Location: [facility] ENDOSCOPY; S ervice: Gastroenterology; Laterality: N/A; Colonoscopy 03/04/2013 Procedure: COLONOSCOPY; Surgeon: Howie Gibson MD; Location: [facility] ENDOSCOPY; Service: Gastroe nterology; Laterality: N/A; Upper gastrointestinal endoscopy Skin biopsy Hernia repair 07/03/2013 Procedure: LAPAROSCOPIC - HERNIA - INCISIONAL; Surgeon: Jevon Vargas DO; Location: [facility] MAIN OR; Service: General; Laterality: N/A; Prior to Admission medications Medication Sig Start Date End Date Taking? Authorizing Provider Albuterol Sulfate (VENTOLIN HFA IN) Inhale 2 puffs into the lungs as needed. 108 mcg/act Historical Provider Waeli-M-Shbwgyzljnezm (BEANO) TABS Take 150 Units by mouth [...] as needed for Anxi ety. Historical Provider clonidine (CATAPRES) Place 1 patch onto the skin once a week. 0.2mg/hr Historical Provid er diltiazem (CARDIZEM CD) 240 MG 24 hr capsule Take 1 capsule by mouth daily. Patient taking differently: Take 180 mg by mouth daily. 180 mg at hs 11/30/13 11/30/14 [facility] carlyn Mae MD diltiazem (DILACOR XR) 240 MG 24 hr capsule Take 240 mg by mouth daily with breakfast. H istorical Provider docusate sodium (COLACE) 100 MG capsule Take [...] needed for Pain. Historical Provider HYDROcodone-acetaminophen (NORCO) 5-325 MG per tablet Take 1 tablet by mouth every 6 (six) hours as needed for Pain. 05/05/14 05/15/14 Sy Fierro MD HYDROcodone-acetaminophen (NORCO) 7.5-325 MG per tablet Take [...] 100 mg by mouth nightly. Historical Provider fpufhntan-nipkuhxm-bblsdjpxt hydroxide-simethicone Take 40 mLs by mouth daily as needed. Historical Provider lisinopril (ZESTRIL) 40 MG tablet Take 40 mg by mouth every evening. 03/05/13 03/05/14 Scott Martínez MD LORazepam (ATIVAN) 1 MG tablet Take [...] 20 mg by mouth nightly. Historical Provider psyllium (METAMUCIL SMOOTH TEXTURE) 28 % packet Take 1 packet by mouth daily. 04/28/14 Joe Chao MD tamsulosin (FLOMAX) 0.4 MG capsule Take 0.4 [...] on file Social History Narrative Lives in senior care, IADL, full code Family History Problem Relation Age of Onset Heart disease Father Heart disease Sister Diabetes type II Sister Heart Problems Brother Review of Systems Positive for: Fall, left-sided weakness and paresthesias, difficulty speaking, headache, sh oulder pain No fever, chills, nausea or vomiting. No vision changes, difficulty breathing. No chest pain, abdominal pain, rash. No difficulty with urination or bowel movements. No other complaints. See HPI for further relevant details. All systems otherwise negative, except as recorded above and as recorded in the HPI. Physical Exam Filed Vitals: 05/06/14 0351 05/06/14 0517 05/06/14 0612 05/06/14 0724 BP: 173/75 140/75 159/73 Pulse: 92 75 74 68 Temp: 98 F (36.7 C) 97.5 F (36.4 C) 98 F (36.7 C) 97.8 F (36.6 C) TempSrc: Oral Oral Oral Resp: 16 16 16 16 Weight: 109.2 kg (240 lb 11.9 oz) SpO2: 94% 94% 97% 95% INTERPRETATION OF VITALS Pulse Oximetry interpretation: Normal Hypertensive. Otherwise normal PHYSICAL EXAM Appearance: Alert. No acute distress. Head: Normal external exam. Eyes: EOMI, PERRL, no scleral icterus. ENT: Normal external ENT inspection. Neck: Supple. FROM. CVS: Normal heart rate and rhythm. Heart sounds normal. Pulses normal. Respiratory: No respiratory distress. No wheezing, rales, or rhonchi. Abdomen: Soft and nontender. No rebound or guarding. Genitourinary: Deferred. Back: Moves without difficulty. Skin: Skin warm and dry. Extremities: No deformity. Mild pain with palpitation over the top of the left shoulder. Normal range of motion. Neuro: No facial asymmetry. Decreased sensation of the left side of the face, left upper extremity, left lower extrem ity relative to the right. Decreased drafter electronic strength of the left relative to the right. Mild pronator drift of the le ft arm. Decreased strength of the left lower extremity relative to the right. NIHSS=5 Medical Decision Making and Emergency Department Course ED Department Course: 6:49 AM Norah Gr is a 58 y.o. male who presents with a chief complaint of left-sided weakness and fall. Received patient in signout from Dr. Ramírez who had already ordered appropriate l abs and imaging. On my physical exam, the patient does have left-sided sensory deficits and weakness relative to the right which increases my concern that his fall may have been due t o a TIA or CVA. Unfortunately the patient is unsure when his symptoms may have occurred as the were present when he woke up at 3 AM. This would make him in eligible for TPA if his sy mptoms were the result of a embolic stroke. We are currently waiting for CT imaging. Swatiai michelle patient's workup has been quite unremarkable. 7:[address] imaging negative for acute fracture or intracranial bleed. Is on the patient's persiste nt symptoms I feel that he warrants admission to the hospital for further evaluation of TIA versus stroke. I will order an MRI and contact the hospitalist service. 8:09 AM Discussed the case with Dr. Box (hospitalist) who agrees to see the patient for admission . He requests that I write transition orders. Records Reviewed Old medical records. Previous electrocardiograms. Nursing notes. Ambulance run sheet. Previous radiology studies. Laboratory Evaluation Results Procedure Component Value Ref Range Date/Time Cardiac Panel [[id number]] (Abnormal) Collected: 05/06/14526 Order Status: Completed Updated: 03/31/15 0610 WBC 8.44 3.80 - 11.00 K/uL RBC 4.97 4.20 - 5.70 M/uL HGB 12.2 (L) 13.2 - 17.0 g/dL HCT 38.1 (L) 39.0 - 50.0 % MCV 76.7 (L) 80.0 - 100.0 fl MCH 24.5 (L) 27.0 - 34.0 pg MCHC 32.0 32.0 - 35.5 g/dL RDW SD 41.6 37 - 53 fl PLT 264 150 - 400 K/uL MPV 7.4 fl DIFF TYPE AUTOMATED NEUTROPHILS 61.41 % LYMPHOCYTES 24.07 % MONOCYTES 10.35 % EOSINOPHILS 3.37 % BASOPHILS 0.80 % NEUTROPHILS ABS 5.18 1.90 - 7.40 K/uL LYMPHOCYTES ABS 2.03 1.00 - 3.90 K/uL MONOCYTES ABS 0.87 (H) 0.00 - 0.80 K/uL EOSINOPHILS ABS 0.28 0.00 - 0.50 K/uL BASOPHILS ABS 0.07 0.00 - 0.10 K/uL MORPHOLOGY 1+ Platelet Estimate ADEQUATE SODIUM 142 135 - 143 mmol/L POTASSIUM 3.8 3.5 - 4.9 mmol/L CHLORIDE 108 99 - 109 mmol/L CO2 28 23 - 32 mmol/L ANION GAP AGAP 10 5 - 20 mmol/L GLUCOSE 171 (H) 65 - 99 mg/dL BUN 19 8 - 25 mg/dL CREATININE 1.15 0.70 - 1.30 mg/dL BUN/CREAT 17 CALCIUM 8.5 8.5 - 10.5 mg/dL TOTAL PROTEIN 7.1 6.3 - 8.2 g/dL Albumin 3.2 (L) 3.6 - 5.0 g/dL GLOBULIN 3.9 1.3 - 4.9 g/dL A/G 0.8 (L) 1.0 - 2.4 TBIL 0.2 0.1 - 1.5 mg/dL ALK PHOS 78 35 - 115 U/L AST 17 10 - 45 U/L ALT 18 10 - 65 U/L EGFR >60 >60 mL/min/1.73m2 CPK 110 55 - 400 U/L INR 1.0 APTT 27 23 - 32 seconds MMB 2.0 0.5 - 3.6 ng/mL CK-MB Index 1.8 POC clinitek 10 [[id number]] Collected: 05/06/14442 Order Status: Completed Updated: 05/06/14444 Color, UA YELLOW Clarity, UA CLEAR Glucose, UA NEGATIVE NEGATIVE mg/dL Bilirubin, UA NEGATIVE NEGATIVE Ketones, UA NEGATIVE NEGATIVE mg/dL Spec Grav, UA 1.015 1.001 - 1.035 Blood, UA NEGATIVE NEGATIVE pH, UA 7.0 4.6 - 8.0 Protein, UA NEGATIVE NEGATIVE mg/dL Urobilinogen, UA 0.2 <1.1 mg/dL Nitrite, UA NEGATIVE NEGATIVE WBC, UA NEGATIVE NEGATIVE POCT glucose [[id number]] Order Status: Sent Lab Interpretation I have reviewed lab results from the emergency department workup and abnormal results have been posted to the chart. Pertinent positive and negative findings have been addressed appr opriately. Radiology and EKG Evaluation Imaging Results X-ray shoulder left complete 2+v (In process) CT Head and C-Spine Non-Con (Final result) Result time: 05/06/14 07:23:58 Final result by Rad Results In [place] (05/06/14 07:23:58) Impression: 1. No acute intracranial hemorrhage, mass or infarct. 2. No acute fracture or dislocation of the cervical spine. Narrative: HISTORY: Left-sided numbness with fall. TECHNIQUE: 5-mm axial noncontrast images were acquired from the foramen magnum through the cranial saad lana. COMPARISON: March 07, 2014 FINDINGS: No acute intracranial hemorrhage, mass or infarct Basal cisterns are patent. The ventricles and sulci are normal in size and configuration Orbits are normal. Mucosal thickening of the ethmoid air cells and opacification of the left aspect of the fro ntal sinus. Cerumen nearly filling the left external ear canal. Lesser amount of cerumen of the right e xternal air canal. CERVICAL SPINE: No acute fracture or dislocation. Normal alignment of the cervical spine. Preservation of intervertebral disc space. Airway is patent. Moderate degeneration at the atlantodental interval. Craniocervical junction is normal. ECG from 05: Sinus rhythm at 69 bpm. TX, QRS, QT, and axis are normal. No ST segment elev ations or depression. No significant Q waves. Good R wave progression through the precordial leads. Meets No STEMI criteria for ischemia. In comparison with an old ECG from 04/28/14 t here are no significant changes. This study has been independently viewed and interpreted by me. ED Diagnoses Final diagnoses Paresthesias Shoulder contusion, left, initial encounter Acute left-sided weakness CKD (chronic kidney disease) Paroxysmal atrial fibrillation HTN (hypertension) Diabetes mellitus, type 2 Disposition: ED Disposition Admit/Observation Bed request special needs: Fall risk Diagnosis?: l sided weakness,fall Follow-up Information Follow up With Details Comments Contact Info Edin Gutiérrez, DO In [address] [place] [address] [facility] Emergency Department If symptoms worsen, As needed [address] [facility] [address] Discharge Medications: New Prescriptions No new medications This document has been prepared with a voice recognition system. The possibility of "sound alike" parish visitor errors, addition and/or deletions may occur. If there is any question p lease contact the author of the document. Procedures Additional Documentation Procedures Norah Barker MD 05/06/14 0811 onversion Transactio n, Provider Unknown - 05/06/2014 6:52 AM PDT ED Notes by Kenny Holliday RN at 05/06/14 0652 Author: Kenny Holliday RN Service: (none) Author Type: Registered Nurse Filed: 05/06/14 0654 Date of Service: 05/06/14651 Status: Signed Capture Manager: Kenny Holliday RN (Registered Nurse) Pt returned from CT, requesting water, reminded pt of NPO status while awaiting CT results. Kenny Holliday RN 05/06/14 0654 Mary Ann MD - 05/06/2014 5:43 AM PDTFormatting of this note might be different from the or iginal. ED Provider Notes by Xander Ramírez MD at 05/06/14 0543 Author: Xander Ramírez MD Service: (none) Author Type: Physician Filed: 05/09/14 0324 Date of Service: 05/06/14 0543 Status: Signed Capture Manager: Xander Ramírez MD (Physician) [facility] Department of Emergency Medicine 5:43 AM History of Present Illness Patient Identification Norah Gr is a 58 y.o. male. Patient information was obtained from patient. History/Exam limitations: none. Patient presented to the Emergency Department by: [facility] 1723 Chief Complaint Chief Complaint Patient presents with Numbness L side Fatigue generalized The patient complains of L sided chest pain. Onset of symptoms was 3 AM, with a constant co urse since that time. The patient also complains of tingling to L side of face that goes up into his head as well as in his L arm and leg as well as R sided headache. No tingling on R side. Patient states he got up to use the restroom this morning when he tripped and fell. P atient denies symptoms of numbness before fall. Patient denies history of stroke. Patient kelley d a skin cancer excision yesterday from Dr. Fierro Past Medical History Diagnosis Date Diabetes mellitus [...] arm and back Other chronic pain Stroke Past Surgical History Procedure Laterality Date Unlisted procedure arthroscopy Knee surgery rt knee, patella Leg surgery LLE Colonoscopy Cholecystectomy, laparoscopic 09/12/2012 Procedure: LAPAROSCOPIC - CHOLECYSTECTOMY; Surgeon: Jevon Vargas DO; Location: [facility] MAIN OR; Service: General; Laterality: N/A; Abdominal surgery Cholecystectomy Skin cancer excision 10/10/2012 Procedure: EXCISION - SKIN CANCER; Surgeon: Sy Fierro MD; Location: [facility] MAIN OR ; Service: Plastics; Laterality: Left; upper arm and upper back w/frozen section Esophagogastroduodenoscopy 03/03/2013 Procedure: ESOPHAGOGASTRODUODENOSCOPY; Surgeon: Howie Gibson MD; Location: [facility] ENDOSCOPY; S ervice: Gastroenterology; Laterality: N/A; Colonoscopy 03/04/2013 Procedure: COLONOSCOPY; Surgeon: Howie Gibson MD; Location: [facility] ENDOSCOPY; Service: Gastroe nterology; Laterality: N/A; Upper gastrointestinal endoscopy Skin biopsy Hernia repair 07/03/2013 Procedure: LAPAROSCOPIC - HERNIA - INCISIONAL; Surgeon: Jevon Vargas DO; Location: [facility] MAIN OR; Service: General; Laterality: N/A; Skin lesion excision Left 05/05/2014 Procedure: EXCISION - LESION - FROZEN SECTION; Surgeon: Sy Fierro MD; Location: [facility] MAIN OR; Service: Plastics; Laterality: Left; forearm Prior to Admission medications Medication Sig Start Date End Date Taking? Authorizing Provider Albuterol Sulfate (VENTOLIN HFA IN) Inhale 2 puffs into the lungs as needed. 108 mcg/act Historical Provider Odotj-C-Yxcyjffswinnq (BEANO) TABS Take 150 Units by mouth [...] as needed for Anxi ety. Historical Provider clonidine (CATAPRES) Place 1 patch onto the skin once a week. 0.2mg/hr Historical Provid er diltiazem (CARDIZEM CD) 240 MG 24 hr capsule Take 1 capsule by mouth daily. Patient taking differently: Take 180 mg by mouth daily. 180 mg at hs 11/30/13 11/30/14 [facility] carlyn Mae MD diltiazem (DILACOR XR) 240 MG 24 hr capsule Take 240 mg by mouth daily with breakfast. H istorical Provider docusate sodium (COLACE) 100 MG capsule Take [...] needed for Pain. Historical Provider HYDROcodone-acetaminophen (NORCO) 5-325 MG per tablet Take 1 tablet by mouth every 6 (six) hours as needed for Pain. 05/05/14 05/15/14 Sy Fierro MD HYDROcodone-acetaminophen (NORCO) 7.5-325 MG per tablet Take 1 tablet by mouth every 6 (six ) hours as needed for Pain. 04/29/14 04/29/15 Sy Fierro MD insulin glargine (LANTUS) 100 UNIT/ML injection Inject 82 Units into the skin nightly. Patient taking differently: Inject 60 Units into the skin nightly. 12/03/13 Augsutine Agosto MD lamoTRIgine (LAMICTAL) 100 MG tablet Take 100 mg by mouth nightly. Historical Provider fmqnmrjlm-licssjgu-rdhdpcrlr hydroxide-simethicone Take 40 mLs by mouth daily as needed. Historical Provider lisinopril (ZESTRIL) 40 MG tablet Take 40 mg by mouth every evening. 03/05/13 03/05/14 Scott Martínez MD LORazepam (ATIVAN) 1 MG tablet Take [...] 20 mg by mouth nightly. Historical Provider psyllium (METAMUCIL SMOOTH TEXTURE) 28 % packet Take 1 packet by mouth daily. 04/28/14 Joe Chao MD tamsulosin (FLOMAX) 0.4 MG capsule Take 0.4 [...] on file Social History Narrative Lives in senior care, IADL, full code Family History Problem Relation Age of Onset Heart disease Father Heart disease Sister Diabetes type II Sister Heart Problems Brother Review of Systems Constitutional: No fever ENT: No blindness, no rhinitis, no sore throat Cardiovascular: Yes chest pain Respiratory: No shortness of breath, cough Gastrointestinal: No abdominal pain, N/V/D, black or bloody stools Genitourinary: No dysuria, hematuria Musculoskeletal: No acute physical injury. Skin: No laceration or rash Neuro and psych: Yes L sided numbness No head injury, seizure, headache Endocrine/Heme/Lymph: No easy bruising or bleeding. Physical Exam BP 173/75 | Pulse 75 | Temp(Src) 97.5 F (36.4 C) (Oral) | Resp 16 | Wt 109.2 kg (240 lb 11.9 oz) | SpO2 94% Vital Sign interpretation: Hypertensive, otherwise normal Pulse Oximetry interpretation: Normal General: Alert, in no apparent distress Eyes: Non-icteric, EOMI, PERRL ENT: Normal external exam Head: No signs of had trauma Neck: Supple, no focal midline neck tenderness though there is some generalized soreness Cardiovascular: Warm and well perfused Respiratory: No respiratory distress Abdomen: Soft, non tender Extremities: BARNARD, swollen ankles bilaterally, generalized lower extremity tenderness, wrapp ed post-op incision. L upper shoulder TTP and L upper trapezius tenderness though pt able to range shoulder without significant pain Back: Normal ROM Skin: Color normal Warm and dry No rash Neuro: A&O x3 (did miss the day of the week by one day, but got date correct) Patient is v wilbert low functioning. Normal strength bilaterally of upper and lower extremities Good drafter electronic strength Subjective change in sensation of L arm, L leg and L side of face Alert, no AMS No gross motor/sensory deficits Medical Decision Making and Emergency Department Course ED Department Course Mentally delayed pt with frequent ED visits presents what sounds like some sort of fall whe n he got up this AM followed by L arm, L leg and L face tingling. There are no objective fin dings but the laterality does raise some concerns. Consider cervical injury or CVA vs brachi al plexus trauma, though this would still make the leg symptoms strange. I will start evalua tion with a CT of head and neck as well as general labs. COLTON states to not give patient any medications for subjective complaints. Due to leaving after my shift, I will pass along the pt to Dr Barker, who can admit for MR [place] if CT negative. Records Reviewed Old medical records. Nursing notes. Prior ED visits for similar and unrelated complaints Laboratory Evaluation Results Procedure Component Value Ref Range Date/Time Cardiac Panel [[id number]] (Abnormal) Collected: 05/06/14526 Order Status: Completed Updated: 05/06/14609 WBC 8.44 3.80 - 11.00 K/uL RBC 4.97 4.20 - 5.70 M/uL HGB 12.2 (L) 13.2 - 17.0 g/dL HCT 38.1 (L) 39.0 - 50.0 % MCV 76.7 (L) 80.0 - 100.0 fl MCH 24.5 (L) 27.0 - 34.0 pg MCHC 32.0 32.0 - 35.5 g/dL RDW SD 41.6 37 - 53 fl PLT 264 150 - 400 K/uL MPV 7.4 fl DIFF TYPE AUTOMATED NEUTROPHILS 61.41 % LYMPHOCYTES 24.07 % MONOCYTES 10.35 % EOSINOPHILS 3.37 % BASOPHILS 0.80 % NEUTROPHILS ABS 5.18 1.90 - 7.40 K/uL LYMPHOCYTES ABS 2.03 1.00 - 3.90 K/uL MONOCYTES ABS 0.87 (H) 0.00 - 0.80 K/uL EOSINOPHILS ABS 0.28 0.00 - 0.50 K/uL BASOPHILS ABS 0.07 0.00 - 0.10 K/uL MORPHOLOGY 1+ Platelet Estimate ADEQUATE SODIUM 142 135 - 143 mmol/L POTASSIUM 3.8 3.5 - 4.9 mmol/L CHLORIDE 108 99 - 109 mmol/L CO2 28 23 - 32 mmol/L ANION GAP AGAP 10 5 - 20 mmol/L GLUCOSE 171 (H) 65 - 99 mg/dL BUN 19 8 - 25 mg/dL CREATININE 1.15 0.70 - 1.30 mg/dL BUN/CREAT 17 CALCIUM 8.5 8.5 - 10.5 mg/dL TOTAL PROTEIN 7.1 6.3 - 8.2 g/dL Albumin 3.2 (L) 3.6 - 5.0 g/dL GLOBULIN 3.9 1.3 - 4.9 g/dL A/G 0.8 (L) 1.0 - 2.4 TBIL 0.2 0.1 - 1.5 mg/dL ALK PHOS 78 35 - 115 U/L AST 17 10 - 45 U/L ALT 18 10 - 65 U/L EGFR >60 >60 mL/min/1.73m2 CPK 110 55 - 400 U/L INR 1.0 APTT 27 23 - 32 seconds MMB 2.0 0.5 - 3.6 ng/mL CK-MB Index 1.8 POC clinitek 10 [[id number]] Collected: 05/06/14442 Order Status: Completed Updated: 05/06/14444 Color, UA YELLOW Clarity, UA CLEAR Glucose, UA NEGATIVE NEGATIVE mg/dL Bilirubin, UA NEGATIVE NEGATIVE Ketones, UA NEGATIVE NEGATIVE mg/dL Spec Grav, UA 1.015 1.001 - 1.035 Blood, UA NEGATIVE NEGATIVE pH, UA 7.0 4.6 - 8.0 Protein, UA NEGATIVE NEGATIVE mg/dL Urobilinogen, UA 0.2 <1.1 mg/dL Nitrite, UA NEGATIVE NEGATIVE WBC, UA NEGATIVE NEGATIVE I personally reviewed the lab results and they have been posted to the chart. Pertinent po sitive and negative findings have been addressed appropriately. Radiology and EKG Evaluation Imaging Results MRI brain wo contrast and MRA head (Final result) Result time: 05/06/14 14:06:40 Final result by Rad Results In Richard (05/06/14 14:06:40) Impression: 1. Diffuse cerebral atrophy with probable mild chronic white matter microvascular ischemi c gliosis. 2. Unremarkable MRA of the cerebral arterial system. No stenosis, occlusion, aneurysm or vasculitis noted. Narrative: NORAH GR MRI BRAIN WO AND MRA HEAD 05/06/2014 1:57 PM HISTORY: 58 years. Male. Left-sided weakness. TECHNIQUE: Imaging was performed on a 1.5 [employer] MRI system. Multiplanar sequences according to a [facility] department protocol were acquired without contrast. Noncontrast efcu-yb-tmalum MRA was acquired. Multiplanar MIP reconstructions were performed. COMPARISON: CT head dated 05/06/2012 and MRI brain dated 07/08/2013 FINDINGS: Craniocervical junction, pineal, pituitary, ronaldo, and corpus callosum are unremarkable. Mil d diffuse cerebral atrophy. No restricted diffusion to represent acute infarct. A few small scattered areas of increased T2 and FLAIR signal within the supratentorial white matter that are nonspecific but most likely represent chronic white matter microvascular ischemic glios is, stable. Mucous retention cyst in the left frontal sinus. Normal flow voids within the an terior and posterior circulation. The mastoid sinuses are clear. No mass within the CP angle cisterns. The orbits and their contents are normal. No susceptibility artifact. Examination is mildly motion degraded. MRA: Patent anterior communicating artery. Vertebral arteries are codominant. No focal sten osis, dissection, vasculitis, or aneurysm greater than 3 mm. Posterior communicating arterie s are not nonvisualized may be diminutive in size or absent. X-ray shoulder left complete 2+v (Final result) Result time: 05/06/14 08:08:41 Final result by Rad Results In Richard (05/06/14 08:08:41) Impression: FINDINGS/ IMPRESSION: No acute fracture or dislocation. No bone, joint or soft tissue abnormality. Narrative: NORAH GR 1955 XR SHOULDER LEFT 05/06/2014 8:03 AM INDICATION: Pain COMPARISON: None TECHNIQUE: Left shoulder series, [address] Head and C-Spine Non-Con (Final result) Result time: 05/06/14 07:23:58 Final result by Rad Results In Richard (05/06/14 07:23:58) Impression: 1. No acute intracranial hemorrhage, mass or infarct. 2. No acute fracture or dislocation of the cervical spine. Narrative: HISTORY: Left-sided numbness with fall. TECHNIQUE: 5-mm axial noncontrast images were acquired from the foramen magnum through the cranial saad lana. COMPARISON: March 07, 2014 FINDINGS: No acute intracranial hemorrhage, mass or infarct Basal cisterns are patent. The ventricles and sulci are normal in size and configuration Orbits are normal. Mucosal thickening of the ethmoid air cells and opacification of the left aspect of the fro ntal sinus. Cerumen nearly filling the left external ear canal. Lesser amount of cerumen of the right e xternal air canal. CERVICAL SPINE: No acute fracture or dislocation. Normal alignment of the cervical spine. Preservation of intervertebral disc space. Airway is patent. Moderate degeneration at the atlantodental interval. Craniocervical junction is normal. EKG at 526 69 BPM Normal sinus rhythm Normal QRS Normal ST Normal T wave ED Diagnoses Final diagnoses Paresthesias Shoulder contusion, left, initial encounter Acute left-sided weakness CKD (chronic kidney disease) Paroxysmal atrial fibrillation HTN (hypertension) Diabetes mellitus, type 2 Disposition: ED Disposition Admit/Observation Bed request special needs: Fall risk Diagnosis?: l sided weakness,fall Follow-up Information Follow up With Details Comments Contact Info Edin Gutiérrez, DO In [address] [facility] [address] [facility] Emergency Department If symptoms worsen, As needed [address] [facility] [address] Aakash Rhodes MD Schedule an appointment as soon as possible for a visit in 1 week [address] [facility] [address] Michael Sims MD Schedule an appointment as soon as possible for a visit in 1 week [address] [facility] [address] Discharge Medications: Discharge Medication List as of 05/07/2014 7:13 PM START taking these medications Details aspirin 325 MG tablet Take 1 tablet by mouth daily with breakfast., Starting 05/07/2014, Madelyn pereyra Joselyn 05/07/15, Print Procedures Additional Documentation Procedures Attending Note: Documentation assistance provided by Divya Preston (Scribe). Information recorded by the scribe has been reviewed and validated by me. I aruna laughlin with its contents. MD Xander Pineda MD 05/09/14 0324 onversion Transactio n, Provider Unknown - 05/06/2014 4:42 AM PDT ED Notes by Mayra Xie RN at 05/06/14441 Author: Mayra Xie RN Service: (none) Author Type: Registered Nurse Filed: 05/06/14441 Date of Service: 05/06/14441 Status: Signed Capture Manager: Mayra Xie RN (Registered Nurse) Pt reports that he has to urinate, the patient is assisted to a standing position at bedsid e and provided a urinal. The patient is able to stand and bear weight well. Mayra Xie RN 05/06/14441 onver ivana Transaction, Provider Unknown - 05/06/2014 4:10 AM PDT ED Notes by Mayra Xie RN at 05/06/14409 Author: Mayra Xie RN Service: (none) Author Type: Registered Nurse Filed: 05/06/14409 Date of Service: 05/06/14409 Status: Signed Capture Manager: Mayra Xie RN (Registered Nurse) Pt complains of sudden onset "sharp pain" in L shoulder. Mayra Xie RN 05/06/14409 onver ivana Transaction, Provider Unknown - 05/06/2014 3:52 AM PDT ED Notes by Hortensia Cardoso RN at 05/06/14351 Author: Hortensia Cardoso RN Service: (none) Author Type: Registered Nurse Filed: 05/06/14351 Date of Service: 05/06/14351 Status: Signed Capture Manager: Hortensia Cardoso RN (Registered Nurse) Bed: 09 Expected date: Expected time: Means of arrival: Comments: Ems 1723 docume nted in this encounter Plan of Treatment +--------+ + + + + | Date | Type | Specialty | Care Team | Description | +--------+ + + + + | 10/16/ | Anti-coag | Anticoagulation | Nohemi Zaragozah | | | 2020 | visit | | [address] | | | | | | [place], | | | | | | [place] [address] | | | | | | [phone] | | | | | | | | +--------+ + + + + documented as of this encounter Procedures + +--------+ + + + | Procedure Name | Priori | Date/Time | Associated Diagnosis | Comments | | | ty | | | | + +--------+ + + + | POC GLUCOSE | Routin | 05/07/2014 | | Results for this | | | e | 4:16 PM | | procedure are in the | | | | PDT | | results section. | + +--------+ + + + | POC GLUCOSE | Routin | 05/07/2014 | | Results for this | | | e | 11:05 AM | | procedure are in the | | | | PDT | | results section. | + +--------+ + + + | POC GLUCOSE | Routin | 05/07/2014 | | Results for this | | | e | 5:21 AM | | procedure are in the | | | | PDT | | results section. | + +--------+ + + + | EXTERNAL LAB: CBC | Routin | 05/07/2014 | | Results for this | | | e | 4:57 AM | | procedure are in the | | | | PDT | | results section. | + +--------+ + + + | LIPID PANEL | Routin | 05/07/2014 | | Results for this | | | e | 4:57 AM | | procedure are in the | | | | PDT | | results section. | + +--------+ + + + | PHOSPHORUS | Routin | 05/07/2014 | | Results for this | | | e | 4:57 AM | | procedure are in the | | | | PDT | | results section. | + +--------+ + + + | MAGNESIUM | Routin | 05/07/2014 | | Results for this | | | e | 4:57 AM | | procedure are in the | | | | PDT | | results section. | + +--------+ + + + | HEMOGLOBIN A1C | Routin | 05/07/2014 | | Results for this | | | e | 4:57 AM | | procedure are in the | | | | PDT | | results section. | + +--------+ + + + | COMPREHENSIVE | Routin | 05/07/2014 | | Results for this | | METABOLIC PANEL | e | 4:57 AM | | procedure are in the | | | | PDT | | results section. | + +--------+ + + + | POC GLUCOSE | Routin | 05/06/2014 | | Results for this | | | e | 8:56 PM | | procedure are in the | | | | PDT | | results section. | + +--------+ + + + | POC GLUCOSE | Routin | 05/06/2014 | | Results for this | | | e | 4:03 PM | | procedure are in the | | | | PDT | | results section. | + +--------+ + + + | MRI BRAIN WO | Routin | 05/06/2014 | | Results for this | | CONTRAST ANGIOGRAM | e | 1:57 PM | | procedure are in the | | HEAD WO CONTRAST | | PDT | | results section. | + +--------+ + + + | ECHO COMPLETE | Routin | 05/06/2014 | | Results for this | | | e | 10:40 AM | | procedure are in the | | | | PDT | | results section. | + +--------+ + + + | POC GLUCOSE | Routin | 05/06/2014 | | Results for this | | | e | 9:54 AM | | procedure are in the | | | | PDT | | results section. | + +--------+ + + + | XR SHOULDER LEFT 2 + | Routin | 05/06/2014 | | Results for this | | VW | e | 8:03 AM | | procedure are in the | | | | PDT | | results section. | + +--------+ + + + | CT HEAD CERVICAL | Routin | 05/06/2014 | | Results for this | | SPINE WO CONTRAST | e | 6:45 AM | | procedure are in the | | | | PDT | | results section. | + +--------+ + + + | HISTORICAL LAB PANEL | Routin | 05/06/2014 | | Results for this | | RESULT | e | 5:27 AM | | procedure are in the | | | | PDT | | results section. | + +--------+ + + + | ECG 12 LEAD | Routin | 05/06/2014 | | Results for this | | | e | 5:26 AM | | procedure are in the | | | | PDT | | results section. | + +--------+ + + + | POC GLUCOSE | Routin | 05/06/2014 | | Results for this | | | e | 4:45 AM | | procedure are in the | | | | PDT | | results section. | + +--------+ + + + documented in this encounter Results POC Glucose (05/07/2014 4:16 PM PDT) + + + + + + | Component | Value | Ref Range | Performed | Pathologist | | | | | At | Signature | + + + + + + | Glucose, | 128 (H)Comment: Testing | 65 - 99 mg/dL | EXTERNAL | | | Fingerstick | performed at [facility];[address] | | LAB | | | | [address];[place], [place] | | | | | | [address] | | | | + + + + + + + + | Specimen | + + | | + + + +---------+ + + | Performing | Address | City/State/Zipcode | Phone Number | | Organization | | | | + +---------+ + + | EXTERNAL LAB | | | | + +---------+ + + POC Glucose (05/07/2014 11:05 AM PDT) + + + + + + | Component | Value | Ref Range | Performed | Pathologist | | | | | At | Signature | + + + + + + | Glucose, | 137 (H)Comment: Testing | 65 - 99 mg/dL | EXTERNAL | | | Fingerstick | performed at [facility];[address] | | LAB | | | | [address];[place] | | | | | | [address] | | | | + + + + + + + + | Specimen | + + | | + + + +---------+ + + | Performing | Address | City/State/Zipcode | Phone Number | | Organization | | | | + +---------+ + + | EXTERNAL LAB | | | | + +---------+ + + POC Glucose (05/07/2014 5:21 AM PDT) + + + + + + | Component | Value | Ref Range | Performed | Pathologist | | | | | At | Signature | + + + + + + | Glucose, | 134 (H)Comment: Testing | 65 - 99 mg/dL | EXTERNAL | | | Fingerstick | performed at [facility];[address] | | LAB | | | | [address];[place], [place] | | | | | | [address] | | | | + + + + + + + + | Specimen | + + | | + + + +---------+ + + | Performing | Address | City/State/Zipcode | Phone Number | | Organization | | | | + +---------+ + + | EXTERNAL LAB | | | | + +---------+ + + External Lab: CBC (05/07/2014 4:57 AM PDT) + + + + + + | Component | Value | Ref Range | Performed | Pathologist | | | | | At | Signature | + + + + + + | WBC | 9.65Comment: Testing | 3.80 - 11.00 | EXTERNAL | | | | performed at [facility], [address] | K/uL | LAB | | | | [address], | | | | | | [place] [address] | | | | + + + + + + | Non- | 5.01Comment: Testing | 4.20 - 5.70 | EXTERNAL | | | Red Blood | performed at [facility], [address] | M/uL | LAB | | | Cells | [address], | | | | | Counted | [place] [address] | | | | + + + + + + | Hemoglobin | 12.8 (L)Comment: Testing | 13.2 - 17.0 | EXTERNAL | | | | performed at [facility], [address] | g/dL | LAB | | | | [address], | | | | | | [place] [address] | | | | + + + + + + | Hematocrit, | 39.2Comment: Testing | 39.0 - 50.0 % | EXTERNAL | | | POC | performed at [facility], [address] | | LAB | | | | [address], | | | | | | [place] [address] | | | | + + + + + + | MCV | 78.3 (L)Comment: Testing | 80.0 - 100.0 fl | EXTERNAL | | | | performed at [facility], [address] | | LAB | | | | [address], | | | | | | [place] [address] | | | | + + + + + + | MCH | 25.5 (L)Comment: Testing | 27.0 - 34.0 pg | EXTERNAL | | | | performed at [facility], [address] | | LAB | | | | [address], | | | | | | [place] [address] | | | | + + + + + + | MCHC | 32.6Comment: Testing | 32.0 - 35.5 | EXTERNAL | | | | performed at [facility], [address] | g/dL | LAB | | | | [address], | | | | | | [place] [address] | | | | + + + + + + | RDW-CV | 41.6Comment: Testing | 37 - 53 fl | EXTERNAL | | | | performed at [facility], [address] | | LAB | | | | [address], | | | | | | [place] [address] | | | | + + + + + + | Platelet | 251Comment: Testing | 150 - 400 K/uL | EXTERNAL | | | Count | performed at [facility], [address] | | LAB | | | Plasma | [address], | | | | | | [place] [address] | | | | + + + + + + | MPV | 7.8Comment: Testing | fl | EXTERNAL | | | | performed at [facility], [address] | | LAB | | | | [address], | | | | | | [place] [address] | | | | + + + + + + | Differentia | AUTOMATEDComment: | | EXTERNAL | | | l Type | Testing performed at | | LAB | | | | [facility], [address] | | | | | | [place] | | | | | | [address] | | | | + + + + + + | % Segmented | 59.65Comment: Testing | % | EXTERNAL | | | | performed at [facility], [address] | | LAB | | | Neutrophils | [address], | | | | | | [place] [address] | | | | + + + + + + | % | 25.65Comment: Testing | % | EXTERNAL | | | Lymphocytes | performed at [facility], [address] | | LAB | | | | [address], | | | | | | [place] [address] | | | | + + + + + + | % Monocytes | 9.90Comment: Testing | % | EXTERNAL | | | | performed at [facility], [address] | | LAB | | | | [address], | | | | | | [place] [address] | | | | + + + + + + | % | 4.25Comment: Testing | % | EXTERNAL | | | Eosinophils | performed at [facility], [address] | | LAB | | | [address], | | | | | | [place] [address] | | | | + + + + + + | % Basophils | 0.55Comment: Testing | % | EXTERNAL | | | | performed at [facility], [address] | | LAB | | | | [address], | | | | | | [place] [address] | | | | + + + + + + | Absolute | 5.76Comment: Testing | 1.90 - 7.40 | EXTERNAL | | | Segmented | performed at [facility], [address] | K/uL | LAB | | | Neutrophils | [address], | | | | | | [place] [address] | | | | + + + + + + | Absolute | 2.48Comment: Testing | 1.00 - 3.90 | EXTERNAL | | | Lymphocytes | performed at [facility], [address] | K/uL | LAB | | | | [address], | | | | | | [place] [address] | | | | + + + + + + | Absolute | 0.96 (H)Comment: Testing | 0.00 - 0.80 | EXTERNAL | | | Monocytes | performed at [facility], [address] | K/uL | LAB | | | | [address], | | | | | | [place] [address] | | | | + + + + + + | Absolute | 0.41Comment: Testing | 0.00 - 0.50 | EXTERNAL | | | Eosinophils | performed at [facility], [address] | K/uL | LAB | | | | [address], | | | | | | [place] [address] | | | | + + + + + + | Absolute | 0.05Comment: Testing | 0.00 - 0.10 | EXTERNAL | | | Basophils | performed at [facility], [address] | K/uL | LAB | | | | [address], | | | | | | [place] [address] | | | | + + + + + + + + | Specimen | + + | Blood specimen | | (specimen) | + + + +---------+ + + | Performing | Address | City/State/Zipcode | Phone Number | | Organization | | | | + +---------+ + + | EXTERNAL LAB | | | | + +---------+ + + Phosphorus (05/07/2014 4:57 AM PDT) + + + + + + | Component | Value | Ref Range | Performed | Pathologist | | | | | At | Signature | + + + + + + | PHOSPHORUS | 3.7Comment: Testing | 2.3 - 4.8 mg/dL | EXTERNAL | | | | performed at [facility], [address] | | LAB | | | | [address], | | | | | | [place] [address] | | | | + + + + + + + + | Specimen | + + | Blood specimen | | (specimen) | + + + +---------+ + + | Performing | Address | City/State/Zipcode | Phone Number | | Organization | | | | + +---------+ + + | EXTERNAL LAB | | | | + +---------+ + + Magnesium (05/07/2014 4:57 AM PDT) + + + + + + | Component | Value | Ref Range | Performed | Pathologist | | | | | At | Signature | + + + + + + | Magnesium | 1.9Comment: Testing | 1.7 - 2.4 mg/dL | EXTERNAL | | | | performed at [facility], [address] | | LAB | | | | [address], | | | | | | [place] [address] | | | | + + + + + + + + | Specimen | + + | Blood specimen | | (specimen) | + + + +---------+ + + | Performing | Address | City/State/Zipcode | Phone Number | | Organization | | | | + +---------+ + + | EXTERNAL LAB | | | | + +---------+ + + Hemoglobin A1C (05/07/2014 4:57 AM PDT) + + + + + + | Component | Value | Ref Range | Performed | Pathologist | | | | | At | Signature | + + + + + + | Hemoglobin | 6.2 (H)Comment: The | 4.0 - 6.0 % | EXTERNAL | | | A1c | [employer] | | LAB | | | | Association considers a | | | | | | hemoglobin A1c result of | | | | | | <7.0% to be the goal of | | | | | | diabetic therapy. | | | | | | When results are | | | | | | consistently >8.0%, the | | | | | | ADA suggests | | | | | | reevaluation of the | | | | | | treatment regimen. The | | | | | | testing method used is | | | | | | certified traceable to | | | | | | the Diabetes Control and | | | | | | Complications Trial | | | | | | reference method.Testing | | | | | | performed at [facility], [address] | | | | | | [address], | | | | | | [place] [address] | | | | + + + + + + | Glycohemogl | 131Comment: The ADA | mg/dL | EXTERNAL | | | obin | considers an eAG result | | LAB | | | (GHb),Total | of LT 154 mg/dL to be | | | | | | the goal of diabetic | | | | | | therapy. Estimated | | | | | | Average Glucose | | | | | | calculated from | | | | | | hemoglobin A1c by use of | | | | | | the ADA recommended | | | | | | formula.Testing | | | | | | performed at [facility], [address] | | | | | | [address], | | | | | | [place] [address] | | | | + + + + + + + + | Specimen | + + | Blood specimen | | (specimen) | + + + +---------+ + + | Performing | Address | City/State/Zipcode | Phone Number | | Organization | | | | + +---------+ + + | EXTERNAL LAB | | | | + +---------+ + + Lipid Panel (05/07/2014 4:57 AM PDT) + + + + + + | Component | Value | Ref Range | Performed | Pathologist | | | | | At | Signature | + + + + + + | Cholesterol | 131Comment: Testing | mg/dL | EXTERNAL | | | | performed at [facility], [address] | | LAB | | | | [address], | | | | | | [place] [address] | | | | + + + + + + | Triglycerid | 156 (H)Comment: Testing | mg/dL | EXTERNAL | | | es | performed at [facility], [address] | | LAB | | | | [address], | | | | | | [place] [address] | | | | + + + + + + | HDL | 31 (L)Comment: Testing | mg/dL | EXTERNAL | | | | performed at [facility], [address] | | LAB | | | | [address], | | | | | | [place] [address] | | | | + + + + + + | LDL, | 69Comment: Testing | mg/dL | EXTERNAL | | | Calculated | performed at [facility], [address] | | LAB | | | | [address], | | | | | | [place] [address] | | | | + + + [...] + +---------+ + + Comprehensive Metabolic Panel (05/07/2014 4:57 AM PDT) + + + + + + | Component | Value | Ref Range | Performed | Pathologist | | | | | At | Signature | + + + + + + | Na | 140Comment: Testing | 135 - 143 | EXTERNAL | | | | performed at [facility], [address] | mmol/L | LAB | | | | [address], | | | | | | [place] [address] | | | | + + + + + + | K | 3.9Comment: Testing | 3.5 - 4.9 | EXTERNAL | | | | performed at [facility], [address] | mmol/L | LAB | | | | [address], | | | | | | [place] [address] | | | | + + + + + + | Cl | 106Comment: Testing | 99 - 109 mmol/L | EXTERNAL | | | | performed at [facility], [address] | | LAB | | | | [address], | | | | | | [place] [address] | | | | + + + + + + | CO2 | 30Comment: Testing | 23 - 32 mmol/L | EXTERNAL | | | | performed at [facility], [address] | | LAB | | | | [address], | | | | | | [place] [address] | | | | + + + + + + | Anion Gap | 8Comment: Testing | 5 - 20 mmol/L | EXTERNAL | | | | performed at [facility], [address] | | LAB | | | | [address], | | | | | | [place] [address] | | | | + + + + + + | Glucose, | 139 (H)Comment: Testing | 65 - 99 mg/dL | EXTERNAL | | | Fasting | performed at [facility], [address] | | LAB | | | | [address], | | | | | | [place] [address] | | | | + + + + + + | BUN | 19Comment: Testing | 8 - 25 mg/dL | EXTERNAL | | | | performed at [facility], [address] | | LAB | | | | [address], | | | | | | [place] [address] | | | | + + + + + + | Creatinine | 1.20Comment: Testing | 0.70 - 1.30 | EXTERNAL | | | | performed at [facility], [address] | mg/dL | LAB | | | | [address], | | | | | | [place] [address] | | | | + + + + + + | BUN/Creatin | 16Comment: Testing | | EXTERNAL | | | ine Ratio | performed at [facility], [address] | | LAB | | | | [address], | | | | | | [place] [address] | | | | + + + + + + | Calcium | 9.2Comment: Testing | 8.5 - 10.5 | EXTERNAL | | | | performed at [facility], [address] | mg/dL | LAB | | | | [address], | | | | | | [place] [address] | | | | + + + + + + | Protein, | 6.7Comment: Testing | 6.3 - 8.2 g/dL | EXTERNAL | | | Total | performed at [facility], [address] | | LAB | | | | [address], | | | | | | [place] [address] | | | | + + + + + + | Albumin | 3.6Comment: Testing | 3.6 - 5.0 g/dL | EXTERNAL | | | | performed at [facility], [address] | | LAB | | | | [address], | | | | | | [place] [address] | | | | + + + + + + | Globulin | 3.1Comment: Testing | 1.3 - 4.9 g/dL | EXTERNAL | | | | performed at [facility], [address] | | LAB | | | | [address], | | | | | | [place] [address] | | | | + + + + + + | A/G Ratio | 1.2Comment: Testing | 1.0 - 2.4 | EXTERNAL | | | | performed at [facility], [address] | | LAB | | | | [address], | | | | | | [place] [address] | | | | + + + + + + | Bilirubin | 0.3Comment: Testing | 0.1 - 1.5 mg/dL | EXTERNAL | | | Total | performed at [facility], [address] | | LAB | | | | [address], | | | | | | [place] [address] | | | | + + + + + + | ALP, | 69Comment: Testing | 35 - 115 U/L | EXTERNAL | | | External | performed at [facility], [address] | | LAB | | | | [address], | | | | | | [place] [address] | | | | + + + + + + | AST | 12Comment: Testing | 10 - 45 U/L | EXTERNAL | | | | performed at [facility], [address] | | LAB | | | | [address], | | | | | | [place] [address] | | | | + + + + + + | ALT | 11Comment: Testing | 10 - 65 U/L | EXTERNAL | | | | performed at [facility], [address] | | LAB | | | | [address], | | | | | | [place] [address] | | | | + + + [...] | | | | | [place] [address] | | | | + + + + + + + + | Specimen | + + | Blood specimen | | (specimen) | + + + +---------+ + + | Performing | Address | City/State/Zipcode | Phone Number | | Organization | | | | + +---------+ + + | EXTERNAL LAB | | | | + +---------+ + + POC Glucose (05/06/2014 8:56 PM PDT) + + + + + + | Component | Value | Ref Range | Performed | Pathologist | | | | | At | Signature | + + + + + + | Glucose, | 160 (H)Comment: Testing | 65 - 99 mg/dL | EXTERNAL | | | Fingerstick | performed at [facility];[address] | | LAB | | | | [address];[place] | | | | | | [address] | | | | + + + + + + + + | Specimen | + + | | + + + +---------+ + + | Performing | Address | City/State/Zipcode | Phone Number | | Organization | | | | + +---------+ + + | EXTERNAL LAB | | | | + +---------+ + + POC Glucose (05/06/2014 4:03 PM PDT) + + + + + + | Component | Value | Ref Range | Performed | Pathologist | | | | | At | Signature | + + + + + + | Glucose, | 138 (H)Comment: Testing | 65 - 99 mg/dL | EXTERNAL | | | Fingerstick | performed at [facility];[address] | | LAB | | | | [address];[place], [place] | | | | | | [address] | | | | + + + + + + + + | Specimen | + + | | + + + +---------+ + + | Performing | Address | City/State/Zipcode | Phone Number | | Organization | | | | + +---------+ + + | EXTERNAL LAB | | | | + +---------+ + + MRI Brain Wo MRA Head Wo (05/06/2014 1:57 PM PDT) + + | Specimen | + + | | + + + + + | Impressions | Performed At | + + + | 1. Diffuse cerebral atrophy with probable mild chronic white | | | matter microvascular ischemic gliosis. 2. Unremarkable MRA of the | | | cerebral arterial system. No stenosis, occlusion, aneurysm or | | | vasculitis noted. Electronically signed by Neal Ramírez DO on | | | 05/06/2014 2:06 PM | | + + + + + + | Narrative | Performed At | + + + | [facility] MRI BRAIN WO AND MRA HEAD 05/06/2014 1:57 PM | | | HISTORY: 58 years. Male. Left-sided weakness. TECHNIQUE: | | | Imaging was performed on a 1.5 Eden MRI system. Multiplanar | | | sequences according to a standard department protocol were acquired | | | without contrast. Noncontrast [id number] MRA was acquired. | | | Multiplanar MIP reconstructions were performed. COMPARISON: CT | | | head dated 05/06/2012 and MRI brain dated 07/08/2013 FINDINGS: | | | Craniocervical junction, pineal, pituitary, ronaldo, and corpus callosum | | | are unremarkable. Mild diffuse cerebral atrophy. No restricted | | | diffusion to represent acute infarct. A few small scattered areas of | | | increased T2 and FLAIR signal within the supratentorial white matter | | | that are nonspecific but most likely represent chronic white matter | | | microvascular ischemic gliosis, stable. Mucous retention cyst in the | | | left frontal sinus. Normal flow voids within the anterior and | | | posterior circulation. The mastoid sinuses are clear. No mass within | | | the CP angle cisterns. The orbits and their contents are normal. No | | | susceptibility artifact. Examination is mildly motion degraded. | | | MRA: Patent anterior communicating artery. Vertebral arteries are | | | codominant. No focal stenosis, dissection, vasculitis, or aneurysm | | | greater than 3 mm. Posterior communicating arteries are not | | | nonvisualized may be diminutive in size or absent. | | + + + + + | Procedure Note | + + | Joaquin Ramos Conversion - 09/20/2018 10:29 PM [facility] | | HEAD05/06/2014 1:57 PM HISTORY:58 years. Male. Left-sided weakness. TECHNIQUE:Imaging | | was performed on a 1.5 [employer] MRI system. Multiplanar sequences according to a standard | | department protocol were acquired without contrast. Noncontrast [id number]-[id number] MRA was | | acquired. Multiplanar MIP reconstructions were performed. COMPARISON:CT head dated | | 05/06/2012 and MRI brain dated 07/08/2013 FINDINGS:Craniocervical junction, pineal, | | pituitary, ronaldo, and corpus callosum are unremarkable. Mild diffuse cerebral atrophy. No | | restricted diffusion to represent acute infarct. A few small scattered areas of | | increased T2 and FLAIR signal within the supratentorial white matter that are | | nonspecific but most likely represent chronic white matter microvascular ischemic | | gliosis, stable. Mucous retention cyst in the left frontal sinus. Normal flow voids | | within the anterior and posterior circulation. The mastoid sinuses are clear. No mass | | within the CP angle cisterns. The orbits and their contents are normal. No | | susceptibility artifact. Examination is mildly motion degraded. MRA: Patent anterior | | communicating artery. Vertebral arteries are codominant. No focal stenosis, dissection, | | vasculitis, or aneurysm greater than 3 mm. Posterior communicating arteries are not | | nonvisualized may be diminutive in size or absent. IMPRESSION: 1. Diffuse cerebral | | atrophy with probable mild chronic white matter microvascular ischemic gliosis.2. | | Unremarkable MRA of the cerebral arterial system. No stenosis, occlusion, aneurysm or | | vasculitis noted. | | | | | |IMPRESSION: | |1. Diffuse cerebral atrophy with probable mild chronic white matter microvascular ischemic gliosis. | |2. Unremarkable MRA of the cerebral arterial system. No stenosis, occlusion, aneurysm or vasculitis noted. | | | | | + + ECHO Complete (05/06/2014 10:40 AM PDT) + + | Specimen | + + | | + + + + + | Impressions | Performed At | + + + | 1. Overall left ventricular systolic function is normal with, an EF | | | between 65 - 70 %. 2. The diastolic filling pattern is normal for the | | | age of the patient. 3. There is no evidence of pulmonary | | | hypertension. 4. Bubble study was not done. | | + + + + + + | Narrative | Performed At | + + + | Patient Name: NORAH GR Date of : 1955 | | | Performing Physician: Marcelino Edgar MD | | | | | | INDICATIONS STROKE/TIA, no IV CONCLUSIONS | | | 1. Overall left ventricular systolic function is normal | | | with, an EF between 65 - 70 %. 2. The diastolic filling pattern is | | | normal for the age of the patient. 3. There is no evidence of | | | pulmonary hypertension. 4. Bubble study was not done. FINDINGS | | | -------- ECG rhythm: Sinus rhythm with extra systolic beats. Study: | | | A 2-dimensional transthoracic echocardiogram with m-mode, spectral and | | | color flow Doppler was perfomed. Study: This was a technically | | | adequate study. Left Ventricle: Overall left ventricular systolic | | | function is normal with, an EF between 65 - 70 %. Left Ventricle: The | | | left ventricle cavity size is normal. Left Ventricle: There is mild | | | concentric left ventricular hypertrophy. Left Ventricle: No regional | | | wall motion abnormalities. Left Ventricle: The diastolic filling | | | pattern is normal for the age of the patient. Right Ventricle: The | | | right ventricle is normal in size and function. Left Atrium: The left | | | atrial size is normal. Right Atrium: The right atrial size is | | | normal. Aortic Valve: The aortic valve is trileaflet, and appears | | | anatomically normal. No aortic stenosis or regurgitation. Mitral | | | Valve: The mitral valve is normal. Mitral Valve: There is trace | | | mitral regurgitation. Tricuspid Valve: The tricuspid valve appears | | | structurally normal. Tricuspid Valve: Trace tricuspid regurgitation | | | present. Tricuspid Valve: There is no evidence of pulmonary | | | hypertension. Tricuspid Valve: The right ventricular systolic | | | pressure (pulmonary artery systolic pressure), as measured by Doppler, | | | is 20.65mmHg. Pulmonic Valve: Pulmonic valve appears structurally | | | normal. Pulmonic Valve: Trace pulmonic regurgitation. Pericardium: | | | There is a trivial pericardial effusion present. IVC/Hepatic Veins: | | | The IVC is normal size (1.5-2.5cm) and collapses <50% with sniff, | | | consistent with central venous pressures of 10-15mmHg. Septum: Bubble | | | study was not done. MEASUREMENTS IVC: 2.59 cm | | | LA Major: 5.38 cm EDV(Teich): 123.13 ml IVSd: 1.25 cm | | | LVIDd: 5.08 cm LVPWd: 1.18 cm LVOT Diam: 2.21 cm %FS: | | | 42.75 % EF(Teich): 73.56 % ESV(Teich): 32.55 ml IVSs: 1.69 | | | cm LVIDs: 2.91 cm LVPWs: 1.39 cm SV(Teich): 90.58 ml RA | | | Major: 5.06 cm RVIDd: 3.04 cm LAESV(A-L): 54.01 ml LAESV | | | Index (A-L): 23.68 ml/m2 LAAs A2C: 18.59 cm2 LAESV A-L A2C: | | | 51.50 ml LAESV MOD A2C: 47.76 ml LALs A2C: 5.69 cm LAAs A4C: | | | 18.00 cm2 LAESV A-L A4C: 52.30 ml LAESV MOD A4C: 48.51 ml | | | LALs A4C: 5.26 cm Ao Diam: 4.20 cm AV Cusp: 2.73 cm LA | | | Diam: 4.46 cm LA/Ao: 1.06 %FS: 44.56 % EDV(Teich): | | | 168.18 ml EF(Teich): 75.10 % ESV(Teich): 41.86 ml IVSd: | | | 1.13 cm IVSs: 1.64 cm LVIDd: 5.82 cm LVIDs: 3.22 cm | | | LVPWd: 1.39 cm LVPWs: 1.83 cm SV(Teich): 126.32 ml IVC | | | diameter: 2.34 cm IVC collapse: 1.32 cm IVC % collapse: | | | 41.13 % HR: 65.68 BPM AV maxP.61 mmHg AV meanP.65 | | | mmHg AV Vmax: 1.84 m/s AV Vmean: 1.05 m/s AV VTI: 33.52 | | | cm VANE Vmax: 2.96 cm2 VANE (VTI): 3.11 cm2 LVCI Dopp: 3.16 | | | l/minm2 LVCO Dopp: 7.21 l/min HR: 68.97 BPM LVOT maxPG: | | | 8.05 mmHg LVOT meanP.81 mmHg LVSI Dopp: 45.84 ml/m2 LVSV | | | Dopp: 104.53 ml LVOT Vmax: 1.41 m/s LVOT Vmean: 1.03 m/s | | | LVOT VTI: 27.06 cm MCO: 380.62 ms MV A Tracy: 0.80 m/s MV | | | DecT: 247.04 ms MV E Tracy: 0.74 m/s MV E/A Ratio: 0.92 MV | | | PHT: 54.69 ms MVA By PHT: 4.02 cm2 MV A Dur: 114.18 ms | | | Septal e': 0.07 m/s Septal E/e': 9.46 Lateral e': 0.12 m/s | | | Lateral E/e': 6.15 P Vein A: 0.26 m/s P Vein A Dur: 110.72 | | | ms P Vein D: 0.39 m/s P Vein S/D Ratio: 0.98 P Vein S: | | | 0.39 m/s RAP: 5 mmHg RVSP: 20.65 mmHg TR maxP.65 mmHg | | | TR Vmax: 1.97 m/s TV A Tracy: 0.55 m/s TV Dec [place]: 3.25 | | | m/s2 TV Dec Time: 242.45 ms TV E Tracy: 0.78 m/s TV E/A Ratio: | | | 1.42 [employer] D[employer] Barge: KARIE Authenticated by: Marcelino Edgar MD | | | Report Date/Time: 05-06-2014 13:25:14 | | + + + + + | Procedure Note | + + | Richard, Rad Conversion - 09/20/2018 10:29 PM PDT Patient Name: Sim GR of | | : 1955 Performing Physician: Marcelino Edgar | | INDICATIONS S | | TROKE/TIA, no IV CONCLUSIONS 1. Overall left ventricular systolic function is | | normal with, an EF between 65 - 70 %.2. The diastolic filling pattern is normal for the | | age of the patient.3. There is no evidence of pulmonary hypertension.4. Bubble study was | | not done. FINDINGS--------ECG rhythm: Sinus rhythm with extra systolic beats.Study: A | | 2-dimensional transthoracic echocardiogram with m-mode, spectral and color flow Doppler | | was perfomed.Study: This was a technically adequate study.Left Ventricle: Overall left | | ventricular systolic function is normal with, an EF between 65 - 70 %.Left Ventricle: | | The left ventricle cavity size is normal.Left Ventricle: There is mild concentric left | | ventricular hypertrophy.Left Ventricle: No regional wall motion abnormalities.Left | | Ventricle: The diastolic filling pattern is normal for the age of the patient.Right | | Ventricle: The right ventricle is normal in size and function.Left Atrium: The left | | atrial size is normal.Right Atrium: The right atrial size is normal.Aortic Valve: The | | aortic valve is trileaflet, and appears anatomically normal. No aortic stenosis or | | regurgitation.Mitral Valve: The mitral valve is normal.Mitral Valve: There is trace | | mitral regurgitation.Tricuspid Valve: The tricuspid valve appears structurally | | normal.Tricuspid Valve: Trace tricuspid regurgitation present.Tricuspid Valve: There is | | no evidence of pulmonary hypertension.Tricuspid Valve: The right ventricular systolic | | pressure (pulmonary artery systolic pressure), as measured by Doppler, is | | 20.65mmHg.Pulmonic Valve: Pulmonic valve appears structurally normal.Pulmonic Valve: | | Trace pulmonic regurgitation.Pericardium: There is a trivial pericardial effusion | | present.IVC/Hepatic Veins: The IVC is normal size (1.5-2.5cm) and collapses <50% with | | sniff, consistent with central venous pressures of 10-15mmHg.Septum: Bubble study was | | not done. MEASUREMENTS IVC: 2.59 cmLA Major: 5.38 cmEDV(Teich): 123.13 | | mlIVSd: 1.25 cmLVIDd: 5.08 cmLVPWd: 1.18 cmLVOT Diam: 2.21 cm%FS: 42.75 | | %EF(Teich): 73.56 %ESV(Teich): 32.55 mlIVSs: 1.69 cmLVIDs: 2.91 cmLVPWs: 1.39 | | cmSV(Teich): 90.58 mlRA Major: 5.06 cmRVIDd: 3.04 cmLAESV(A-L): 54.01 mlLAESV | | Index (A-L): 23.68 ml/m2LAAs A2C: 18.59 [id number] A-L A2C: 51.50 mlLAESV MOD A2C: | | 47.76 mlLALs A2C: 5.69 cmLAAs A4C: 18.00 [id number] A-L A4C: 52.30 mlLAESV MOD A4C: | | 48.51 mlLALs A4C: 5.26 cmAo Diam: 4.20 cmAV Cusp: 2.73 cmLA Diam: 4.46 | | cmLA/Ao: 1.06%FS: 44.56 %EDV(Teich): 168.18 mlEF(Teich): 75.10 %ESV(Teich): | | 41.86 mlIVSd: 1.13 cmIVSs: 1.64 cmLVIDd: 5.82 cmLVIDs: 3.22 cmLVPWd: 1.39 | | cmLVPWs: 1.83 cmSV(Teich): 126.32 mlIVC diameter: 2.34 cmIVC collapse: 1.32 | | cmIVC % collapse: 41.13 %HR: 65.68 BPMAV maxP.61 mmHgAV meanP.65 mmHgAV | | Vmax: 1.84 m/Jason Vmean: 1.05 m/Jason VTI: 33.52 cmAVA Vmax: 2.96 cm2AVA (VTI): | | 3.11 [id number] Dopp: 3.16 l/[id number] Dopp: 7.21 l/minHR: 68.97 BPMLVOT maxPG: | | 8.05 mmHgLVOT meanP.81 mmHgLVSI Dopp: 45.84 ml/m2LVSV Dopp: 104.53 mlLVOT | | Vmax: 1.41 m/sLVOT Vmean: 1.03 m/sLVOT VTI: 27.06 cmMCO: 380.62 msMV A Tracy: | | 0.80 m/sMV DecT: 247.04 msMV E Tracy: 0.74 m/sMV E/A Ratio: 0.92MV PHT: 54.69 | | msMVA By PHT: 4.02 cm2MV A Dur: 114.18 msSeptal e': 0.07 m/sSeptal E/e': | | 9.46Lateral e': 0.12 m/sLateral E/e': 6.15P Vein A: 0.26 m/sP Vein A Dur: 110.72 | | msP Vein D: 0.39 m/sP Vein S/D Ratio: 0.98P Vein S: 0.39 m/sRAP: 5 mmHgRVSP: | | 20.65 mmHgTR maxP.65 mmHgTR Vmax: 1.97 m/sTV A Tracy: 0.55 m/sTV Dec [place]: | | 3.25 m/s2TV Dec Time: 242.45 msTV E Tracy: 0.78 m/sTV E/A Ratio: 1.42 [place] [employer]ge: | | KVWAuthenticated by: Marcelino Edgar MDReport Date/Time: 05-06-2014 13:25:14 IMPRESSION: | | 1. Overall left ventricular systolic function is normal with, an EF between 65 - 70 %.2. | | The diastolic filling pattern is normal for the age of the patient.3. There is no | | evidence of pulmonary hypertension.4. Bubble study was not done. | |IVSd: 1.25 cm | |LVIDd: 5.08 cm | |LVPWd: 1.18 cm | |LVOT Diam: 2.21 cm | |%FS: 42.75 % | |EF(Teich): 73.56 % | |ESV(Teich): 32.55 ml | |IVSs: 1.69 cm | |LVIDs: 2.91 cm | |LVPWs: 1.39 cm | |SV(Teich): 90.58 ml | |RA Major: 5.06 cm | |RVIDd: 3.04 cm | |LAESV(A-L): 54.01 ml | |LAESV Index (A-L): 23.68 ml/m2 | |LAAs A2C: 18.59 cm2 | |LAESV A-L A2C: 51.50 ml | |LAESV MOD A2C: 47.76 ml | |LALs A2C: 5.69 cm | |LAAs A4C: 18.00 cm2 | |LAESV A-L A4C: 52.30 ml | |LAESV MOD A4C: 48.51 ml | |LALs A4C: 5.26 cm | |Ao Diam: 4.20 cm | |AV Cusp: 2.73 cm | |LA Diam: 4.46 cm | |LA/Ao: 1.06 | |%FS: 44.56 % | |EDV(Teich): 168.18 ml | |EF(Teich): 75.10 % | |ESV(Teich): 41.86 ml | |IVSd: 1.13 cm | |IVSs: 1.64 cm | |LVIDd: 5.82 cm | |LVIDs: 3.22 cm | |LVPWd: 1.39 cm | |LVPWs: 1.83 cm | |SV(Teich): 126.32 ml | |IVC diameter: 2.34 cm | |IVC collapse: 1.32 cm | |IVC % collapse: 41.13 % | |HR: 65.68 BPM | |AV maxP.61 mmHg | |AV meanP.65 mmHg | |AV Vmax: 1.84 m/s | |AV Vmean: 1.05 m/s | |AV VTI: 33.52 cm | |VANE Vmax: 2.96 cm2 | |VANE (VTI): 3.11 cm2 | |LVCI Dopp: 3.16 l/minm2 | |LVCO Dopp: 7.21 l/min | |HR: 68.97 BPM | |LVOT maxP.05 mmHg | |LVOT meanP.81 mmHg | |LVSI Dopp: 45.84 ml/m2 | |LVSV Dopp: 104.53 ml | |LVOT Vmax: 1.41 m/s | |LVOT Vmean: 1.03 m/s | |LVOT VTI: 27.06 cm | |MCO: 380.62 ms | |MV A Tracy: 0.80 m/s | |MV DecT: 247.04 ms | |MV E Tracy: 0.74 m/s | |MV E/A Ratio: 0.92 | |MV PHT: 54.69 ms | |MVA By PHT: 4.02 cm2 | |MV A Dur: 114.18 ms | |Septal e': 0.07 m/s | |Septal E/e': 9.46 | |Lateral e': 0.12 m/s | |Lateral E/e': 6.15 | |P Vein A: 0.26 m/s | |P Vein A Dur: 110.72 ms | |P Vein D: 0.39 m/s | |P Vein S/D Ratio: 0.98 | |P Vein S: 0.39 m/s | |RAP: 5 mmHg | |RVSP: 20.65 mmHg | |TR maxP.65 mmHg | |TR Vmax: 1.97 m/s | |TV A [place]: 0.55 m/s | |TV Dec [place]: 3.25 m/s2 | |TV Dec Time: 242.45 ms | |TV E Tracy: 0.78 m/s | |TV E/A Ratio: 1.42 | | | |Shore Hand Dredge Or Barge: KVW | |Authenticated by: Marcelino Edgar MD | |Report Date/Time: 05-06-2014 13:25:14 | | | |IMPRESSION: | |1. Overall left ventricular systolic function is normal with, an EF between 65 - 70 %. | |2. The diastolic filling pattern is normal for the age of the patient. | |3. There is no evidence of pulmonary hypertension. | |4. Bubble study was not done. | + + POC Glucose (05/06/2014 9:54 AM PDT) + + + + + + | Component | Value | Ref Range | Performed | Pathologist | | | | | At | Signature | + + + + + + | Glucose, | 174 (H)Comment: Testing | 65 - 99 mg/dL | EXTERNAL | | | Fingerstick | performed at [facility];[address] | | LAB | | | | [address];[place], [place] | | | | | | [id number] | | | | + + + + + + + + | Specimen | + + | | + + + +---------+ + + | Performing | Address | City/State/Zipcode | Phone Number | | Organization | | | | + +---------+ + + | EXTERNAL LAB | | | | + +---------+ + + XR Shoulder Left 2 + Vw (05/06/2014 8:03 AM PDT) + + | Specimen | + + | | + + + + + | Impressions | Performed At | + + + | FINDINGS/ IMPRESSION: No acute fracture or dislocation. No bone, | | | joint or soft tissue abnormality. | | + + + + + + | Narrative | Performed At | + + + | NORAH GR 1955 XR SHOULDER LEFT 05/06/2014 8:03 AM | | | INDICATION: Pain COMPARISON: None TECHNIQUE: Left shoulder | | | series, 2 views | | + + + + + | Procedure Note | + + | Joaquin Ramos Conversion - 09/20/2018 10:29 PM PDT NORAH GR | | 1955 | | XR SHOULDER LEFT | | 05/06/2014 8:03 AM | | | | INDICATION: Pain | | | | COMPARISON: None | | | | TECHNIQUE: Left shoulder series, 2 views | | | | IMPRESSION: | | FINDINGS/ IMPRESSION: No acute fracture or dislocation. | | | | No bone, joint or soft tissue abnormality. | | | | | + + CT Head Cervical Spine wo Contrast (05/06/2014 6:45 AM PDT) + + | Specimen | + + | | + + + + + | Impressions | Performed At | + + + | 1. No acute intracranial hemorrhage, mass or infarct. 2. No | | | acute fracture or dislocation of the cervical spine. | | | | | + + + + + + | Narrative | Performed At | + + + | HISTORY: Left-sided numbness with fall. TECHNIQUE: 5-mm axial | | | noncontrast images were acquired from the foramen magnum through the | | | cranial vertex. COMPARISON: March 07, 2014 FINDINGS: No | | | acute intracranial hemorrhage, mass or infarct Basal cisterns are | | | patent. The ventricles and sulci are normal in size and configuration | | | Orbits are normal. Mucosal thickening of the ethmoid air | | | cells and opacification of the left aspect of the frontal sinus. | | | Cerumen nearly filling the left external ear canal. Lesser amount of | | | cerumen of the right external air canal. CERVICAL SPINE: No | | | acute fracture or dislocation. Normal alignment of the cervical spine. | | | Preservation of intervertebral disc space. Airway is patent. | | | Moderate degeneration at the atlantodental interval. Craniocervical | | | junction is normal. | | + + + + + | Procedure Note | + + | Richard, Rad Conversion - 09/20/2018 10:29 PM PDT HISTORY:Left-sided numbness with fall. | | TECHNIQUE:5-mm axial noncontrast images were acquired from the foramen magnum through | | the cranial vertex. COMPARISON:March 07, 2014 FINDINGS: No acute intracranial | | hemorrhage, mass or infarct Basal cisterns are patent. The ventricles and sulci are | | normal in size and configuration Orbits are normal. Mucosal thickening of the ethmoid | | air cells and opacification of the left aspect of the frontal sinus. Cerumen nearly | | filling the left external ear canal. Lesser amount of cerumen of the right external air | | canal. CERVICAL SPINE: No acute fracture or dislocation. Normal alignment of the | | cervical spine. Preservation of intervertebral disc space. Airway is patent. Moderate | | degeneration at the atlantodental interval. Craniocervical junction is normal. | | IMPRESSION: 1. No acute intracranial hemorrhage, mass or infarct.2. No acute fracture | | or dislocation of the cervical spine. Electronically signed by Titi Noble MD on | | 05/06/2014 7:23 AM | |Basal cisterns are patent. The ventricles and sulci are normal in size and configuration | | | |Orbits are normal. | | | |Mucosal thickening of the ethmoid air cells and opacification of the left aspect of the fro ntal sinus. | | | |Cerumen nearly filling the left external ear canal. Lesser amount of cerumen of the right e xternal air canal. | | | |CERVICAL SPINE: | | | |No acute fracture or dislocation. Normal alignment of the cervical spine. | | | |Preservation of intervertebral disc space. Airway is patent. | | | |Moderate degeneration at the atlantodental interval. Craniocervical junction is normal. | | | | | |IMPRESSION: | | | |1. No acute intracranial hemorrhage, mass or infarct. | |2. No acute fracture or dislocation of the cervical spine. | | | | | + + HISTORICAL LAB PANEL RESULT (05/06/2014 5:27 AM PDT) + + + + + -+ | Component | Value | Ref Range | Performed | Pathologist | | | | | At | Signature | + + + + + -+ | WBC | 8.44Comment: Testing | 3.80 - 11.00 | EXTERNAL | | | | performed at [facility];[address] | K/uL | LAB | | | | [address];[place] | | | | | | [address] | | | | + + + + + -+ | Non- | 4.97Comment: Testing | 4.20 - 5.70 | EXTERNAL | | | Red Blood | performed at [facility];[address] | M/uL | LAB | | | Cells | [address];[place] | | | | | Counted | [id number] | | | | + + + + + -+ | Hemoglobin | 12.2 (L)Comment: Testing | 13.2 - 17.0 | EXTERNAL | | | | performed at [facility];[address] | g/dL | LAB | | | | [address];[place] | | | | | | [address] | | | | + + + + + -+ | Hematocrit, | 38.1 (L)Comment: Testing | 39.0 - 50.0 % | EXTERNAL | | | POC | performed at [facility];[address] | | LAB | | | | [address];[place] | | | | | | [address] | | | | + + + + + -+ | MCV | 76.7 (L)Comment: Testing | 80.0 - 100.0 fl | EXTERNAL | | | | performed at [facility];[address] | | LAB | | | | [address];[place] | | | | | | [address] | | | | + + + + + -+ | MCH | 24.5 (L)Comment: Testing | 27.0 - 34.0 pg | EXTERNAL | | | | performed at [facility];[address] | | LAB | | | | [address];[place] | | | | | | [address] | | | | + + + + + -+ | MCHC | 32.0Comment: Testing | 32.0 - 35.5 | EXTERNAL | | | | performed at [facility];[address] | g/dL | LAB | | | | [address];[place] | | | | | | [address] | | | | + + + + + -+ | RDW-CV | 41.6Comment: Testing | 37 - 53 fl | EXTERNAL | | | | performed at [facility];[address] | | LAB | | | | [address];[place] | | | | | | [address] | | | | + + + + + -+ | Platelet | 264Comment: Testing | 150 - 400 K/uL | EXTERNAL | | | Count | performed at [facility];[address] | | LAB | | | Plasma | [address];[place] | | | | | | [address] | | | | + + + + + -+ | MPV | 7.4Comment: Testing | fl | EXTERNAL | | | | performed at [facility];[address] | | LAB | | | | [address];[place] | | | | | | [address] | | | | + + + + + -+ | Differentia | AUTOMATEDComment: | | EXTERNAL | | | l Type | Testing performed at | | LAB | | | | [facility];[address];[place] [address] | | | | + + + + + -+ | % Segmented | 61.41Comment: Testing | % | EXTERNAL | | | | performed at [facility];[address] | | LAB | | | Neutrophils | [address];[place] | | | | | | [address] | | | | + + + + + -+ | % | 24.07Comment: Testing | % | EXTERNAL | | | Lymphocytes | performed at [facility];[address] | | LAB | | | | [address];[place] | | | | | | [address] | | | | + + + + + -+ | % Monocytes | 10.35Comment: Testing | % | EXTERNAL | | | | performed at [facility];[address] | | LAB | | | | [address];[place] | | | | | | [address] | | | | + + + + + -+ | % | 3.37Comment: Testing | % | EXTERNAL | | | Eosinophils | performed at [facility];[address] | | LAB | | | | [address];[place] | | | | | | [address] | | | | + + + + + -+ | % Basophils | 0.80Comment: Testing | % | EXTERNAL | | | | performed at [facility];[address] | | LAB | | | | [address];[place] | | | | | | [address] | | | | + + + + + -+ | Absolute | 5.18Comment: Testing | 1.90 - 7.40 | EXTERNAL | | | Segmented | performed at [facility];[address] | K/uL | LAB | | | Neutrophils | [address];[place] | | | | | | [address] | | | | + + + + + -+ | Absolute | 2.03Comment: Testing | 1.00 - 3.90 | EXTERNAL | | | Lymphocytes | performed at [facility];[address] | K/uL | LAB | | | | [address];[place] | | | | | | [address] | | | | + + + + + -+ | Absolute | 0.87 (H)Comment: Testing | 0.00 - 0.80 | EXTERNAL | | | Monocytes | performed at [facility];[address] | K/uL | LAB | | | | [address];[place] | | | | | | [address] | | | | + + + + + -+ | Absolute | 0.28Comment: Testing | 0.00 - 0.50 | EXTERNAL | | | Eosinophils | performed at [facility];[address] | K/uL | LAB | | | | [address];[place] | | | | | | [address] | | | | + + + + + -+ | Absolute | 0.07Comment: Testing | 0.00 - 0.10 | EXTERNAL | | | Basophils | performed at [facility];[address] | K/uL | LAB | | | | [address];[place] | | | | | | [address] | | | | + + + + + -+ | RBC | 1+Comment: HYPONORMAL | | EXTERNAL | | | Morphology | PLT MORPHTesting | | LAB | | | | performed at [facility];[address] | | | | | | [address];[place] | | | | | | [address] | | | | | | | | | | + + + + + -+ | Platelet | ADEQUATEComment: Testing | | EXTERNAL | | | Estimate | performed at [facility];[address] | | LAB | | | | [address];[place] | | | | | | [address] | | | | + + + + + -+ | Na | 142Comment: Testing | 135 - 143 | EXTERNAL | | | | performed at [facility];[address] | mmol/L | LAB | | | | [address];[place] | | | | | | [address] | | | | + + + + + -+ | K | 3.8Comment: Testing | 3.5 - 4.9 | EXTERNAL | | | | performed at [facility];[address] | mmol/L | LAB | | | | [address];[place] | | | | | | [address] | | | | + + + + + -+ | Cl | 108Comment: Testing | 99 - 109 mmol/L | EXTERNAL | | | | performed at [facility];[address] | | LAB | | | | [address];[place] | | | | | | [address] | | | | + + + + + -+ | CO2 | 28Comment: Testing | 23 - 32 mmol/L | EXTERNAL | | | | performed at [facility];[address] | | LAB | | | | [address];[place] | | | | | | [address] | | | | + + + + + -+ | Anion Gap | 10Comment: Testing | 5 - 20 mmol/L | EXTERNAL | | | | performed at [facility];[address] | | LAB | | | | [address];[place] | | | | | | [address] | | | | + + + + + -+ | Glucose, | 171 (H)Comment: Testing | 65 - 99 mg/dL | EXTERNAL | | | Fasting | performed at [facility];[address] | | LAB | | | | [address];[place] | | | | | | [address] | | | | + + + + + -+ | BUN | 19Comment: Testing | 8 - 25 mg/dL | EXTERNAL | | | | performed at [facility];[address] | | LAB | | | | [address];[place] | | | | | | [address] | | | | + + + + + -+ | Creatinine | 1.15Comment: Testing | 0.70 - 1.30 | EXTERNAL | | | | performed at [facility];888 | mg/dL | LAB | | | | [address];[place] | | | | | | [address] | | | | + + + + + -+ | BUN/Creatin | 17Comment: Testing | | EXTERNAL | | | ine Ratio | performed at [facility];[address] | | LAB | | | | [address];[place] | | | | | | [address] | | | | + + + + + -+ | Calcium | 8.5Comment: Testing | 8.5 - 10.5 | EXTERNAL | | | | performed at [facility];888 | mg/dL | LAB | | | | [address];[place] | | | | | | [address] | | | | + + + + + -+ | Protein, | 7.1Comment: Testing | 6.3 - 8.2 g/dL | EXTERNAL | | | Total | performed at [facility];[address] | | LAB | | | | [address];[place] | | | | | | [address] | | | | + + + + + -+ | Albumin | 3.2 (L)Comment: Testing | 3.6 - 5.0 g/dL | EXTERNAL | | | | performed at [facility];[address] | | LAB | | | | [address];[place] | | | | | | [address] | | | | + + + + + -+ | Globulin | 3.9Comment: Testing | 1.3 - 4.9 g/dL | EXTERNAL | | | | performed at [facility];[address] | | LAB | | | | [address];[place] | | | | | | [address] | | | | + + + + + -+ | A/G Ratio | 0.8 (L)Comment: Testing | 1.0 - 2.4 | EXTERNAL | | | | performed at [facility];[address] | | LAB | | | | [address];[place] | | | | | | [address] | | | | + + + + + -+ | Bilirubin | 0.2Comment: Testing | 0.1 - 1.5 mg/dL | EXTERNAL | | | Total | performed at [facility];[address] | | LAB | | | | [address];[place] | | | | | | [address] | | | | + + + + + -+ | ALP, | 78Comment: Testing | 35 - 115 U/L | EXTERNAL | | | External | performed at [facility];[address] | | LAB | | | | [address];[place] | | | | | | [address] | | | | + + + + + -+ | AST | 17Comment: Testing | 10 - 45 U/L | EXTERNAL | | | | performed at [facility];[address] | | LAB | | | | [address] Ma[address];[place] | | | | | | [address] | | | | + + + + + -+ | ALT | 18Comment: Testing | 10 - 65 U/L | EXTERNAL | | | | performed at [facility];888 | | LAB | | | | [address]anna Maher;[place] | | | | | | [address] | | | | + + + [...] | | | | | Blvd;[place] [address] | | | | + + + + + -+ | CK, Total | 110Comment: Testing | 55 - 400 U/L | EXTERNAL | | | | performed at [facility];[address] | | LAB | | | | [address];[place] | | | | | | [address] | | | | + + + [...] | | | | | performed at [facility];[address] | | | | | | [address];[place] | | | | | | [address] | | | | + + + + + -+ | aPTT, | 27Comment: Testing | 23 - 32 seconds | EXTERNAL | | | Patient | performed at [facility];[address] | | LAB | | | | [address];[place] | | | | | | [address] | | | | + + + + + -+ | CK-MB | 2.0Comment: Testing | 0.5 - 3.6 ng/mL | EXTERNAL | | | | performed at [facility];[address] | | LAB | | | | [address];[place] | | | | | | [address] | | | | + + + + + -+ | CK-MB Index | 1.8Comment: CK INDEX | | EXTERNAL | | [...] + +---------+ + + ECG 12 lead (05/06/2014 5:26 AM PDT) + + + + + [...] of | | | | | | 28-APR-2014 01:09,No | | | | | | significant change was | | | | | | foundThis ECG contains | | | | | | Unconfirmed | | | | | | Interpretation | | | | | | Statements. See ED | | | | | | Record for Physician | | | | | | Interpretation. | | | | | | Confirmed by MUSE READ | | | | | | ONLY, -COMPUTER ([id number]), | | | | | | order editor Becky Corley | | | | | | (104) on 05/06/2014 | | | | | | 6:46:42 AM | | | | + + + + + + + + | Specimen | + + | | + + + + + | Narrative | Performed At | + + + | [facility] | EXTERNAL LAB | + + + + +---------+ + + | Performing | Address | City/State/Zipcode | Phone Number | | Organization | | | | + +---------+ + + | EXTERNAL LAB | | | | + +---------+ + + POC Glucose (05/06/2014 4:45 AM PDT) + + + + + + | Component | Value | Ref Range | Performed | Pathologist | | | | | At | Signature | + + + + + + | Glucose, | 170 (H)Comment: Testing | 65 - 99 mg/dL | EXTERNAL | | | Fingerstick | performed at [facility];88 | | LAB | | | | [address];[place] | | | | | | [address] | | | | + + + [...] + | Diagnosis | + + | Paresthesias Disturbance of skin sensation | + + | Shoulder contusion, left, initial encounter | + + | Acute left-sided weakness Hemiplegia, unspecified, affecting unspecified side | + + | CKD (chronic kidney disease) Chronic kidney disease, unspecified | + + | Paroxysmal atrial fibrillation (HCC) Atrial fibrillation | + + | HTN (hypertension) Unspecified essential hypertension | + + | Diabetes mellitus, type 2 (HCC) Type II or unspecified type diabetes mellitus without | | mention of complication, not stated as uncontrolled | + + documented in this encounter
--- OUTSIDE RECORDS SUMMARY | ~2019-10-12 | XMS | Encounter Summary ---
Demographics + + + | Address | [address] | | | [place] [address] | + + + | Home Phone | | + + + | Preferred Language | Unknown | + + + | Marital Status | | + + + | Baptist Affiliation | 1027 | + + + | Race | White | + + + | Ethnic Group | Not or | + + + Author + + + | Author | [facility] | | | and [place] | + + + | Organization | [facility] | | | and [place] | + + + | Address | Unknown | + + + | Phone | Unavailable | + + + Support + + + + + | Name | Relationship | Address | Phone | + + + + + | Sammi Kohler | ECON | [place] [address] | | + + + + + Care Team Providers + +------+ + | Care Fruit Farmworker Name | Role | Phone | + +------+ + | Mireya Pack NP | PCP | | + +------+ + Encounter Details +--------+ + + + + | Date | Type | Department | Care Team | Description | +--------+ + + + + | 08/11/ | Orders Only | [facility] | Conversion | | | 2012 | | CONVERSION DEP [address] | Transaction, | | | | | [address] | Provider Unknown | | | | | [place], [place] | [phone] | | | | | [address] | | | | | | [phone] | | | +--------+ + + + [...] 2020 | visit | | [address] | | | | | | [address] [place], | | | | | | [place] [address] | | | | | | [phone] | | | | | | | | +--------+ + + + + documented as of this encounter Visit Diagnoses Not on filedocumented in this encounter Additional Health Concerns + + + + + | Infection | Onset Date | Last Indicated | Resolved Time | + + + + + | Rule out COVID-19 | 07/03/2019 | 07/03/2019 | 07/03/2019 12:12 PM | | | | | PDT | + + + + + | Rule out Respiratory | 07/03/2019 | 07/03/2019 | 07/03/2019 7:56 PM | | Infection | | | PDT | + + + + + | Rule out COVID-19 | 07/03/2019 | 07/23/2019 | 07/23/2019 8:49 PM | | | | | PDT | + + + + + | Rule out | 07/15/2019 | 07/15/2019 | 07/16/2019 3:56 AM | | Gastroenteritis | | | PDT | + + + + + | Rule out C. | 07/15/2019 | 07/15/2019 | 07/16/2019 3:56 AM | | Difficile | | | PDT | + + + + + documented as of this encounter"
--- OUTSIDE RECORDS SUMMARY | ~2019-10-12 | XMS | Encounter Summary ---
Demographics + + + | Address | [address] | | | [place] [address] | + + + | Home Phone [...] + + | Author | [facility] | | | and [place] | + + + | Organization | [facility] | | | and [place] | + + + | Address | Unknown | + + + | Phone | Unavailable | + + + Support + + + + + | Name | Relationship | Address | Phone | + + + + + | Sammi Kohler | ECON | [place] [address] | | + + + + + Care Team Providers + +------+ + | Care District Sales Coordinator Name | Role | Phone | + +------+ + PCP | Unavailable | + +------+ + Encounter Details +--------+ + + + + | Date | Type | Department | Care Team | Description | +--------+ + + + + | 01/21/ | Emergency | [facility] | | Frequent falls; DM | | 2013 | | [facility]ENTER | | (diabetes mellitus), | | | | [facility] [place] | | type 2, | | | | [address] | | uncontrolled ([facility]) | | | | [place] | | | | | | [address] | | | | | | [phone] | | | +--------+ + + + [...] ED Notes Conversion Transaction, Provider Unknown - 01/21/2014 8:22 PM PSTFormatting of this note m ight be different from the original. ED Notes by Levi Luna RN at 01/21/142021 Author: Levi Luna RN Service: (none) Author Type: Registered Nurse Filed: 01/21/142022 Date of Service: 01/21/142021 Status: Signed Tenant Relations Coordinator: Levi Luna RN (Registered Nurse) Stable on his feet at this time. Pt was walked to the waiting area without difficulty. Levi Luna RN 01/21/142022 [email or web address] , Ashu Leyva MD - 01/21/2014 8:04 PM PSTFormatting of this note might be different from th e original. ED Provider Notes by Ashu Bobo MD at 01/21/142003 Author: Ashu Bobo MD Service: (none) Author Type: Physician Filed: 01/21/142015 Date of Service: 01/21/142003 Status: Signed Tenant Relations Coordinator: Ashu Bobo MD (Physician) Procedures Additional Documentation Procedures [facility] Department of Emergency Medicine History of Present Illness Patient Identification Kevyn Guzman is a 58 y.o. male. Patient information was obtained from patient. History/Exam limitations: none. Patient presented to the Emergency Department by: Car Chief Complaint Chief Complaint Patient presents with Head Injury Fall Said he felt weak and fell down 3 times in the last 3 hours. The patient presents with a complaint of fall with injury to forehead. Fall reported to be secondary to (mechanism): "I fell." Time of injury: today, reports he has fallen three johny es today. The severity of the patient s discomfort is reported to be 0/10. The patient reports the following associated symptoms/pertinent negatives: "I feel weak." Other, second ankur areas of pain after the fall: none. Head injury?: yes. LOC: no. "Dazed": no. Seizure: no. The following pre-hospital care has been provided: none Prior history of similar?: Yes, many prior falls. Has AFib but is not on any anticoagulat ion due to falls. PCP: JERRELL GUTIÉRREZ - has appt in 2 days. Past Medical History Diagnosis Date Diabetes mellitus [...] - CHOLECYSTECTOMY; Surgeon: Jevon Vargas DO; Location: [facility] MAIN OR; Service: General; Laterality: N/A; Abdominal surgery Cholecystectomy Skin cancer excision 10/10/2012 Procedure: EXCISION - SKIN CANCER; Surgeon: Sy Fierro MD; Location: [facility] MAIN OR ; Service: Plastics; Laterality: Left; upper arm and upper back w/frozen section Esophagogastroduodenoscopy 03/03/2013 Procedure: ESOPHAGOGASTRODUODENOSCOPY; Surgeon: Howie Gibson MD; Location: [facility] ENDOSCOPY; S ervice: Gastroenterology; Laterality: N/A; Colonoscopy 03/04/2013 Procedure: COLONOSCOPY; Surgeon: Howie Gibson MD; Location: [facility] ENDOSCOPY; Service: Gastroe nterology; Laterality: N/A; Upper gastrointestinal endoscopy Skin biopsy Hernia repair 07/03/2013 Procedure: LAPAROSCOPIC - HERNIA - INCISIONAL; Surgeon: Jevon Vargas DO; Location: [facility] MAIN OR; Service: General; Laterality: N/A; Prior to Admission medications Medication Sig Start Date End Date Taking? Authorizing Provider Albuterol Sulfate (VENTOLIN HFA IN) Inhale 2 puffs into the lungs as needed. 108 mcg/act Historical Provider Ptbsl-F-Lcixczetknkcr (BEANO) TABS Take 150 Units by mouth [...] by mouth daily. Patient taking differently: Take 240 mg by mouth daily. 180 mg at hs 11/30/13 11/30/14 [facility] carlyn Mae MD docusate sodium (COLACE) 100 MG [...] 100 mg by mouth nightly. Historical Provider wncdhegnw-xwiwfutd-nobwdedke hydroxide-simethicone Take 40 mLs by mouth daily [...] lungs 2 (two) times daily. Historical Provider naproxen sodium (ANAPROX) 220 MG tablet Take 220 mg by mouth 2 (two) times daily with meals . Historical Provider nitroGLYCERIN (NITROSTAT) 0.4 MG SL [...] MOUTH EVERY DAY 04/23/13 Bang Yeh MD polyethylene glycol (GOLYTELY,NULYTELY) 236 G suspension Take by mouth once. Historical Provider pravastatin (PRAVACHOL) 20 MG tablet [...] on file Social History Narrative Lives in alf, IADL, full code Family History Problem Relation Age of Onset Heart disease Father Heart disease Sister Diabetes type II Sister Heart Problems Brother Review of Systems Constitutional: Negative for: recent illness Eyes: Negative for: vision changes Throat: Negative for: dental injury Cardiovascular/Respiratory: Negative for: chest pain, shortness of breath Gastrointestinal: Negative for: abdominal pain, vomiting, diarrhea Genitourinary: Negative for: hematuria, urinary problems Musculoskeletal: Pain as above Skin: Injuries as below Neuro and psych: Negative for: fainting Endocrine/Heme/Lymph: Negative for: swollen lymph nodes All other review of systems negative except as mentioned. Physical Exam BP 174/80 | Pulse 98 | Temp(Src) 99.1 F (37.3 C) | Resp 16 | Wt 112.4 kg (247 lb 12.8 o z) | SpO2 95% Pulse Oximetry interpretation: Normal VS: Normal. Afebrile. GCS: 4 - Opens eyes on own 5 - Alert and oriented 6 - Follows simple motor commands GCS Score: 15 General: Alert, in no apparent distress. No visible or palpable signs of head injury. No abrasions or hematomas or similar. Eyes: Normal inspection, pupils equal and round and react to light, non-icteric ENT: Ears normal Nose normal Neck: Normal inspection. No vertebral point tenderness. No gross step-off. Supple No lymphadenopathy No meningismus Cardiovascular: Normal rate, rhythm Respiratory: Normal lung sounds. No rales, rhonchi, or wheezing. Abdomen: Soft, non-tender, non-distended No guarding or rebound Back: Normal inspection. No vertebral point tenderness. No gross step-off. Extremities: No edema or tenderness Skin: Color normal Warm and dry No rash Neuro: No motor deficit No sensory deficit Pt ambulates well without assistance. Pt can heel-walk. Pt can heel-to-toe walk. Medical Decision Making and Emergency Department Course ED Department Course Normal exam and VS. Normal ambulation including heel-to-toe walking. Normal VS. BG is in the low 200s. Pt states this is good for him. I am concerned about pt's frequent falls bu t a review of the EMR shows pt has been seen for this already dozens of times and has had ma ny CT scans and even MRI for this. He has a care plan. He has no objective findings at thi s time so I believe the risks of further imaging and testing outweigh benefit at this time. Pt has appt with PCP already in two days. No interventions recommended. Records Reviewed Old medical records. Dozens of prior ED visits noted. Many are for falls. I have also no tasia and reviewed the patient care plan in the EMR. Pt has 42 recorded ED visits within the last 12 months. Pt also noted to have had about 8 advanced images of the head by CT or MRI within the last year. Laboratory Evaluation Labs Reviewed POCT GLUCOSE - Abnormal; Notable for the following: GLUCOSE,POC SCREEN 228 (*) All other components within normal limits POCT GLUCOSE Radiology and EKG Evaluation Imaging Results None ED Diagnoses Final diagnoses Frequent falls DM (diabetes mellitus), type 2, uncontrolled Disposition: ED Disposition Discharge Condition at discharge: Stable Follow-up Information Follow up With Details Comments Contact Info Jerrell Gross DO Brandie In 2 days as scheduled [address] [address] Discharge Medications: New Prescriptions No new medications Ashu Bobo MD 01/21/142015 onversion Transa ction, Provider Unknown - 01/21/2014 7:51 PM PST ED Notes by Levi Luna RN at 01/21/141950 Author: Levi Luna RN Service: (none) Author Type: Registered Nurse Filed: 01/21/141950 Date of Service: 01/21/141950 Status: Signed Tenant Relations Coordinator: Levi Luna RN (Registered Nurse) accu check 228 Levi Luna RN 01/21/141950 onver ivana Transaction, Provider Unknown - 01/21/2014 7:40 PM PST ED Notes by Levi Luna RN at 01/21/141939 Author: Levi Luna RN Service: (none) Author Type: Registered Nurse Filed: 01/21/141952 Date of Service: 01/21/141939 Status: Signed Tenant Relations Coordinator: Levi Luna RN (Registered Nurse) Pt reports previous falls when his blood glucose is off. Levi Luna RN 01/21/141952 Genaro wilson in this encounter Plan of Treatment +--------+ + + + + | Date | Type | Specialty | Care Team | Description | +--------+ + + + + | 10/16/ | Anti-coag | Anticoagulation | Brittany Zaragoza | | | 2020 | visit | | [address] | | | | | | [address], | | | | | | [place] [address] | | | | | | [phone] | | | | | | | | +--------+ + + + + documented as of this encounter Procedures + +--------+ + + + | Procedure Name | Priori | Date/Time | Associated Diagnosis | Comments | | | ty | | | | + +--------+ + + + | POC GLUCOSE | Routin | 01/21/2014 | | Results for this | | | e | 7:49 PM | | procedure are in the | | | | PST | | results section. | + +--------+ + + + documented in this encounter Results POC Glucose (01/21/2014 7:49 PM PST) + + + + + + | Component | Value | Ref Range | Performed | Pathologist | | | | | At | Signature | + + + + + + | Glucose, | 228 (H)Comment: Testing | 65 - 99 mg/dL | EXTERNAL | | | Fingerstick | performed at [facility];[address] | | LAB | | | | [address];[place] | | | | | | [address] | | | | + + + [...] + | Diagnosis | + + | Frequent falls Personal history of fall | + + | DM (diabetes mellitus), type 2, uncontrolled (HCC) Type II or unspecified type | | diabetes mellitus without mention of complication, uncontrolled | + + documented in this encounter
--- OUTSIDE RECORDS SUMMARY | ~2019-10-12 | XMS | Encounter Summary ---
Demographics + + + | Address | [address] | | | [place] [address] | + + + | Home Phone | | + + + | Preferred Language | Unknown | + + + | Marital Status | | + + + | Voodoo Affiliation | 1027 | + + + | Race | White | + + + | Ethnic Group | Not or | + + + Author + + + | Author | [facility] | | | and [place] | + + + | Organization | [facility] | | | and [place] | + + + | Address | Unknown | + + + | Phone | Unavailable | + + + Support + + + + + | Name | Relationship | Address | Phone | + + + + + | Sammi Kohler | ECON | [place] [address] | | + + + + + Care Team Providers + +------+ + | Care Data Processing Manager Name | Role | Phone | + +------+ + | Mireya Pack NP | PCP | | + +------+ + Reason for Referral Evaluate & Treat (Routine) +--------+ + + + + + | Status | Reason | Specialty | Diagnoses / | Referred By | Referred To | | | | | Procedures | Contact | Contact | +--------+ + + + + + | Closed | Specialty | Home Health | Diagnoses | [facility], | | | | Services | Services | Essential | Mireya Calixto NP | | | | Required | | hypertension | [address] | | | | | | [address] | [address] | | | | | | diabetes | [address] | | | | | | mellitus | [facility] [place] | | | | | | with | [address] | | | | | | hyperglycemi | Phone: | | | | | | a, with | [phone] | | | | | | long-term | Fax: | | | | | | current use | [phone] | | | | | | of insulin | | | | | | | (HCC) | | | | | | | Diarrhea, | | | | | | | unspecified | | | | | | | type | | | | | | | Noncomplianc | | | | | | | e with | | | | | | | medications | | | +--------+ + + + + + Reason for Visit +--------+--------+ + | Reason | Onset | Comments | | | Date | | +--------+--------+ + | Other | 07/09/ | concerns about medications | | | 2020 | | +--------+--------+ + Encounter Details +--------+ + + + + | Date | Type | Department | Care Team | Description | +--------+ + + + + | 07/09/ | Telephone | [facility] | Mireya Pack, | Other (concerns | | 2019 | | [facility] [address] | [employer] [address] | about medications) | | | | [address] | [address] [place], | | | | | [place], [place] | [place] [address] | | | | | [address] | [phone] | | | | | [phone] | | | +--------+ + + + [...] do you have serious | No | 07/03/2019 | | difficulty hearing? | | | + + + + | Are you blind or do you have serious | No | 07/03/2019 | | difficulty seeing, even when wearing | | | | glasses? | | | + + + + | Do you have serious difficulty walking or | No | 07/03/2019 | | climbing stairs? (5 years old or older) | | | + + + + | Do you have difficulty dressing or bathing? | No | 07/03/2019 | | (5 years old or older) | | | + + + + | Because of a physical, mental, or emotional | No | 07/03/2019 | | condition, do you have difficulty [...] physical, mental, or emotional | No | 07/03/2019 | | condition, do you have serious difficulty | | | | concentrating, remembering, or making | | | | decisions? (5 years old or older) | | | + + + + documented as of this encounter Miscellaneous Notes Telephone Encounter - Lucia Amos RN - 07/15/2019 2:10 PM PDTFormatting of this no te might be different from the original. Heidi Moody 07/15/19 1:25 PM Note Elizabeth is returning call from Araseli, Please call her at [phone] Heidi Moody Call returned to Elizabeth, no answer, left VM with clinic phone number. Left VM to call back. elephone Encounter - Lucia Amos RN - 07/15/2019 9:47 AM PDTCall placed to Elizabeth, no answer, left VM with clinic phone number. elephone Encounter - Lucia Amos RN - 07/12/2019 2:07 PM PDTContacted Elizabeth at [facility] [phone], no answer, left VM with clinic phone numb er. Informed to add DRUM HAND[employer]ER to patient's services with them. Left VM to call back. Per TE dated 07/08/19, PARMINDER Hamilton documented that patient prefers to work with [facility] [phone] . elephone Encount er - Mj Montoya - 07/12/2019 12:37 PM PDTPer TCM telephone encounter rikki has a home agency coming into his house on Monday, Monday, Wednesdays. Clinical RN can call santiago light to find out what agency he is utilizing and ask for additional services. Closed Home Health referral elepho ne Encounter - Mel Morton Matrix Supervisor - 07/11/2019 1:49 PM PDTPended home [facility] referral for approval.Electronically signed by Kilo Gao Assistant at 1:50 PM PDTTelephone Encounter - Mireya Pack NP - 07/11/2019 10:57 AM PDTAdd DRUM HANDLER to home health referral 10:5 7 AM PDTTelephone Encounter - Mel Morton Matrix Supervisor - 07/10/2019 4:11 PM PDT Please advise. Thank you! elephone Encounter - Doris Singleton - 07/10/2019 3:46 PM PDTMary stated that [facility] refuses to pay anything for his medications and if it requires a co pay they will not fill it. Mary stated that the last refill was 41 days ago. Mary stated that the hospital paid fo r a couple of medications that they prescribed. Mary is concerned that is why the patient i s ending up in the hospital as not taking his medication. Please advise herElectronically si gned by Doris Garvin at 07/10/2019 3:51 PM PDTdocumented in this encounter Plan of Treatment +--------+ + + + + | Date | Type | Specialty | Care Team | Description | +--------+ + + + + | 10/16/ | Anti-coag | Anticoagulation | Brittany Zaragoza | | | 2019 | visit | | [address] | | | | | | [place], | | | | | | [place] [address] | | | | | | [phone] | | | | | | | | +--------+ + + + + + + +--------+ + + | Name | Type | Priori | Associated Diagnoses | Order Schedule | | | | ty | | | + + +--------+ + + | Referral to Home | Outpatient | Routin | Essential | Ordered: 07/12/2019 | | Health | Referral | e | hypertension Type 2 | | | | | | diabetes mellitus | | | | | | with hyperglycemia, | | | | | | with long-term | | | | | | current use of | | | | | | insulin (HCC) | | | | | | Diarrhea, | | | | | | unspecified type | | | | | | Noncompliance with | | | | | | medications | | + + +--------+ + + documented as of this encounter Visit Diagnoses + + | Diagnosis | + + | Essential hypertension - Primary Unspecified essential hypertension | + + | Type 2 diabetes mellitus with hyperglycemia, with long-term current use of insulin | | (HCC) | + + | Diarrhea, unspecified type | + + | Noncompliance with medications Personal history of noncompliance with medical | | treatment, presenting hazards to health | + + documented in this encounter Additional Health Concerns [...]
--- OUTSIDE RECORDS SUMMARY | ~2019-10-12 | XMS | Encounter Summary ---
Demographics + + + | Address | [address] | | | [place] [address] | + + + | Home Phone | | + + + | Preferred Language | Unknown | + + + | Marital Status | | + + + | Hindu Affiliation | 1027 | + + + | Race | White | + + + | Ethnic Group | Not or | + + + Author + + + | Author | [facility] | | | and [place] | + + + | Organization | [facility] | | | and [place] | + + + | Address | Unknown | + + + | Phone | Unavailable | + + + Support + + + + + | Name | Relationship | Address | Phone | + + + + + | Sammi Kohler | ECON | [place] [address] | | + + + + + Care Team Providers + +------+ + | Care Hand Tapper Name | Role | Phone | + +------+ + | Mireya Pack NP | PCP | | + +------+ + Encounter Details +--------+ + + + + | Date | Type | Department | Care Team | Description | +--------+ + + + + | 09/12/ | Orders Only | [facility] | Bruno Burnham | | | 2018 | | [address] | S, MD [address] | | | | [address] | [address] [place], [place] | | | | | [place], [place] | [address] | | | | | [address] | | | | | | [phone] | | | +--------+ + + + [...] 10/16/ | Anti-coag | Anticoagulation | Brittany Zaargoza | | | 2019 | visit | | [address] | | | | | | [address] [place], | | | | | | [place] [address] | | | | | | [phone] | | | | | | | [...]
--- OUTSIDE RECORDS SUMMARY | ~2019-10-12 | XMS | Encounter Summary ---
Demographics + + + | Address | [address] | | | [place] [address] | + + + | Home Phone [...] + + + | Author | [facility] | | | and [place] | + + + | Organization | [facility] | | | and [place] | + + + | Address | Unknown | + + + | Phone | Unavailable | + + + Support + + + + + | Name | Relationship | Address | Phone | + + + + + | Sammi Kohler | E[place] | [place] [address] | | + + + + + Care Team Providers + +------+ + | Care Apparel Pattern Maker Name | Role | Phone | + +------+ + PCP | Unavailable | + +------+ + Encounter Details +--------+ + + + + | Date | Type | Department | Care Team | Description | +--------+ + + + + | 02/16/ | Emergency | [facility] | Jose Flor, | Hyperglycemia; | | 2013 | | [facility] | MD [address] | Dizziness | | | | EMERGENCY CENTER | [place] [address] | | | | | [address] | [phone] | | | | | [place], [place] | | | | | | [address] | | | | | | [phone] | | | +--------+ + + + [...] documented as of this encounter ED Notes Jose Flor MD - 02/16/2013 10:57 AM PSTFormatting of this note might be different fro m the original. ED Provider Notes by Jose Flor MD at 02/16/13 7 Author: Jose Flor MD Service: (none) Author Type: Physician Filed: 02/18/13 5748 Date of Service: 02/16/131056 Status: Signed It Desktop Support Technician: Jose Flor MD (Physician) [facility] Department of Emergency Medicine History of Present Illness Patient Identification Kevyn Guzman is a 57 y.o. male. Patient information was obtained from Patient History/Exam limitations: none Patient presented to the Emergency Department by: Car Chief Complaint Chief Complaint Patient presents with Back Pain acute renal failure per caregiver for last two weeks. Dizziness recent dx of renal failure. The patient complains of back pains, dizziness. Onset of symptoms was 2 weeks ago, with a c onstantcourse since that time. The symptoms are described to be of moderate severity. The patient describes the quality and location of the symptoms as the following: weak, dizzy, ac hes and pains in back, fatigue. The patient also complains of Concern about history of desire al alyciaalure, and is diabetic but not on insulin and blood sugars have been running very night . Care prior to arrival consisted of his regular mediations and metformin, with no relief. PCP: TAINA WASHBURN Past Medical History Diagnosis Date Diabetes mellitus type II Atrial fibrillation Hypertension Hyperlipidemia Anxiety Depression WARD (obstructive sleep apnea) 08/11/2012 Basal cell carcinoma 09/26/2012 Unspecified visual disturbance Renal failure Past Surgical History Procedure Date Unlisted procedure arthroscopy Knee surgery Leg surgery LLE Colonoscopy Cholecystectomy, laparoscopic 09/12/2012 Procedure: LAPAROSCOPIC - CHOLECYSTECTOMY; Surgeon: Jevon Vargas DO; Location: [facility] MA[facility] OR; Service: General; Laterality: N/A; Abdominal surgery Cholecystectomy Skin cancer excision 10/10/2012 Procedure: EXCISION - SKIN CANCER; Surgeon: yS Fierro MD; Location: [facility] OR ; Service: Plastics; Laterality: Left; upper arm and upper back w/frozen section Prior to Admission medications Medication Sig Start Date End Date Taking? Authorizing Provider Albuterol Sulfate (VENTOLIN HFA IN) Inhale 2 puffs into the lungs as needed. Historical Provider ARIPiprazole (ABILIFY) 10 MG tablet Take 15 mg by mouth nightly. Historical Provider atenolol (TENORMIN) 100 MG tablet Take 200 mg by mouth daily. Historical Provider calcium carbonate (TUMS) 500 MG chewable tablet Take 500 mg by mouth daily. Historical P rovider chlorthalidone (HYGROTEN) 25 MG tablet Take 25 mg by mouth daily. Historical Provider cloNIDine (CATAPRES) 0.1 MG tablet Take 0.1 mg by mouth 4 (four) times daily. 09/14/12 09/14/13 Augustine Agosto MD clopidogrel (PLAVIX) 75 MG tablet Take 75 mg by mouth daily. Historical Provider diltiazem (DILACOR XR) 120 MG 24 hr capsule Take 240 mg by mouth daily. Historical Provi carlos famotidine (PEPCID) 20 MG tablet Take 1 tablet by mouth 2 (two) times daily. 12/22/1212/22 Martell Gold MD fenofibrate (TRIGLIDE) 160 MG tablet Take 160 mg by mouth daily. Historical Provider fluticasone-salmeterol (ADVAIR DISKUS) 250-50 MCG/DOSE AEPB Inhale 1 puff into the lungs ev wilbert 12 (twelve) hours. 09/14/12 Augustine Agosto MD glipiZIDE (GLUCOTROL) 5 MG tablet Take 5 mg by mouth 2 (two) times daily before meals. H istorical Provider hydrocodone-acetaminophen (VICODIN ES) 7.5-750 MG per tablet Take 1 tablet by mouth every 6 (six) hours as needed for Pain. 10/10/12 10/10/13 Sy Fierro MD ibuprofen (ADVIL,MOTRIN) 200 MG tablet Take 200 mg by mouth every 6 (six) hours as needed. Historical Provider ipratropium-albuterol (COMBIVENT) 18-103 MCG/ACT inhaler Inhale 2 puffs into the lungs ever y 6 (six) hours as needed for Wheezing. 08/14/12 08/14/13 Josefa Ramon MD linagliptin (TRADJENTA) 5 MG tablet Take 5 mg by mouth daily. Historical Provider lisinopril (PRINIVIL,ZESTRIL) 20 MG tablet Take 20 mg by mouth 2 (two) times daily. 09/14/12 09/14/13 Augustine Agosto MD METFORMIN HCL PO Take 1,000 mg by mouth 2 (two) times daily. Historical Provider nebivolol (BYSTOLIC) 10 MG tablet Take 20 mg by mouth daily. Historical Provider nitroGLYCERIN (NITROSTAT) 0.[address] 0.4 mg under the tongue every 5 (five) min utes as needed. Historical Provider oxyCODONE-acetaminophen (PERCOCET) 5-325 MG per tablet Take 1-2 tablets by mouth every 4 (f our) hours as needed. Historical Provider paroxetine (PAXIL) 40 MG tablet Take 40 mg by mouth every morning. Historical Provider pravastatin (PRAVACHOL) 20 MG tablet Take 20 mg by mouth nightly. Historical Provider ranitidine (ZANTAC) 150 MG tablet Take 150 mg by mouth daily. Historical Provider tiotropium (SPIRIVA) 18 MCG inhalation capsule Inhale 18 mcg into the lungs daily. Histo rical Provider No Active Allergies History Social History Marital Status: Spouse Name: N/A Number of Children: 1 Years of Education: N/A Occupational History Not on file. Social History Main Topics Smoking status: Never Smoker Smokeless tobacco: Never Used Alcohol Use: Yes Comment: occasional Drug Use: No Sexually Active: Not Currently Other Topics Concern Not on file Social History Narrative Lives in residential, IADL, full code Family History Problem Relation Age of Onset Heart disease Father Heart disease Sister Diabetes type II Sister Review of Systems Constitutional: Negative for: fever, chills, fatigue, sweats or weight loss Eyes: Negative for: decreased vision or irritated eyes Nose: Negative for: nosebleed Throat: Negative for: [...] Negative for: swollen lymph nodes, easy bruising All systems reviewed and otherwise negative Physical Exam BP 147/77 | Pulse 62 | Resp 18 | Ht 1.753 m (5' 9") | Wt 109.317 kg (241 lb) | BMI 35.57 kg /m2 | SpO2 93% Vital signs reviewed and normal Pulse Oximetry interpretation: normal General: Alert, in no apparent distress Eyes: Normal inspection, pupils equal and round, non-icteric ENT: Ears normal Nose normal Pharynx normal Neck: Normal inspection Supple No lymphadenopathy No meningismus Cardiovascular: Rate and rhythm normal No murmurs Respiratory: Breath sounds normal bilaterally Abdomen: Soft, non-tender, non-distended No guarding or rebound Genitourinary: Deferred Rectal exam: Deferred Back: Normal inspection Skin: Color normal Warm and dry No rash Neuro: No motor deficit focally, but generally weak and shakey No sensory deficit No confusion Medical Decision Making and Emergency Department Course The patient presents with a complaint of dizziness, generalized weakness. The differential diagnosis includes but is not limited to anxiety, hyperventilation, hypokalemia, metabolic abnormality, dehydration, near syncope, TIA or CVA, complex migraine, medication side effect , or atypical seizure. The patient does not meet criteria for stroke team activation or tPA . ED Department Course Workup here show no acute pathology. Chronic renal insufficiency, and diabetes. Hyperglyc emia, but no EKG Records Reviewed Old records, labs, etc. Laboratory Evaluation Labs Reviewed COMPREHENSIVE METABOLIC PANEL - Abnormal; Notable for the following: GLUCOSE 276 (*) Testing performed at [facility];[address] [place] [address];[place] [address] CREATININE 1.46 (*) Testing performed at [facility];[address] [place] [address];[place] [address] Albumin 3.5 (*) Testing performed at [facility];[address] [place] [address] A/G 0.9 (*) Testing performed at [facility];[address] [place] [address];[place] [address] EGFR 53 (*) All other components within normal limits CBC W/AUTO DIFF (REFLEX TO MANUAL) Results Procedure Component Value Units Date/Time Complete Metabolic Panel [[id number]] (Abnormal) Collected:02/16/13 1012 Specimen Information:Blood Updated:02/16/13 1036 SODIUM 138 mmol/L POTASSIUM 3.9 mmol/L CHLORIDE 102 mmol/L CO2 29 mmol/L ANION GAP AGAP 10 mmol/L GLUCOSE 276 (H) mg/dL BUN 21 mg/dL CREATININE 1.46 (H) mg/dL BUN/CREAT 14 CALCIUM 9.0 mg/dL TOTAL PROTEIN 7.4 g/dL Albumin 3.5 (L) g/dL GLOBULIN 3.8 g/dL A/G 0.9 (L) TBIL 0.3 mg/dL ALK PHOS 103 U/L AST 35 U/L ALT 31 U/L EGFR 53 (L) mL/min/1.73m2 CBC w Auto Diff [[id number]] Collected:02/16/13 1012 Specimen Information:Blood Updated:02/16/13 1022 WBC 7.9 K/uL RBC 4.96 M/uL HGB 13.5 g/dL HCT 40.2 % MCV 80.9 fl MCH 27.1 pg MCHC 33.5 g/dL RDW SD 46.4 fl PLT 256 K/uL MPV 7.7 fl DIFF TYPE AUTOMATED NEUTROPHILS 57.9 % LYMPHOCYTES 27.9 % MONOCYTES 10.5 % EOSINOPHILS 3.3 % BASOPHILS 0.4 % NEUTROPHILS ABS 4.6 K/uL LYMPHOCYTES ABS 2.2 K/uL MONOCYTES ABS 0.8 K/uL EOSINOPHILS ABS 0.3 K/uL BASOPHILS ABS 0.0 K/uL Available Labs reviewed and interpreted by me. Radiology Evaluation Imaging Results None Available radiology studies reviewed and interpreted contemporaneously by me. ED Diagnoses Final diagnoses Hyperglycemia Dizziness Disposition: ED Disposition Orders Discharge Condition at discharge: Stable Follow-up Information Follow up With Details Comments Contact Info [facility] [place] [address] [facility] [address] Discharge Medications: New Prescriptions No new medications Additional Documentation Procedures Jose Flor MD 02/18/13 1258 documented in this e ncounter Plan of Treatment +--------+ + + + + | Date | Type | Specialty | Care Team | Description | +--------+ + + + + | 10/16/ | Anti-coag | Anticoagulation | Brittany Zaragoza | | | 2020 | visit | | [address] [address] | | | | | | [address] [place], | | | | | | [place] [address] | | | | | | [phone] | | | | | | | | +--------+ + + + + documented as of this encounter Procedures + +--------+ + + + | Procedure Name | Priori | Date/Time | Associated Diagnosis | Comments | | | ty | | | | + +--------+ + + + | EXTERNAL LAB: CBC | Routin | 02/16/2013 | | Results for this | | | e | 10:12 AM | | procedure are in the | | | | PST | | results section. | + +--------+ + + + | COMPREHENSIVE | Routin | 02/16/2013 | | Results for this | | METABOLIC PANEL | e | 10:12 AM | | procedure are in the | | | | PST | | results section. | + +--------+ + + + documented in this encounter Results External Lab: CBC (02/16/2013 10:12 AM PST) + + + + + + | Component | Value | Ref Range | Performed | Pathologist | | | | | At | Signature | + + + + + + | WBC | 7.9Comment: Testing | 3.8 - 11.0 K/uL | EXTERNAL | | | | performed at [facility];[address] | | LAB | | | | [address];[place] | | | | | | [address] | | | | + + + + + + | Non- | 4.96Comment: Testing | 4.20 - 5.70 | EXTERNAL | | | Red Blood | performed at [facility];[address] | M/uL | LAB | | | Cells | [address];[place] | | | | | Counted | [id number] | | | | + + + + + + | Hemoglobin | 13.5Comment: Testing | 13.2 - 17.0 | EXTERNAL | | | | performed at [facility];[address] | g/dL | LAB | | | | [address];[place] | | | | | | [address] | | | | + + + + + + | Hematocrit, | 40.2Comment: Testing | 39.0 - 50.0 % | EXTERNAL | | | POC | performed at [facility];[address] | | LAB | | | | [address];[place] | | | | | | [address] | | | | + + + + + + | MCV | 80.9Comment: Testing | 80.0 - 100.0 fl | EXTERNAL | | | | performed at [facility];[address] | | LAB | | | | [address];[place] | | | | | | [address] | | | | + + + + + + | MCH | 27.1Comment: Testing | 27.0 - 34.0 pg | EXTERNAL | | | | performed at [facility];[address] | | LAB | | | | [address];[place] | | | | | | [address] | | | | + + + + + + | MCHC | 33.5Comment: Testing | 32.0 - 35.5 | EXTERNAL | | | | performed at [facility];[address] | g/dL | LAB | | | | [address];[place] | | | | | | [address] | | | | + + + + + + | RDW-CV | 46.4Comment: Testing | 37 - 53 fl | EXTERNAL | | | | performed at [facility];[address] | | LAB | | | | [address];[place] | | | | | | [address] | | | | + + + + + + | Platelet | 256Comment: Testing | 150 - 400 K/uL | EXTERNAL | | | Count | performed at [facility];[address] | | LAB | | | Plasma | [address];[place] | | | | | | [address] | | | | + + + + + + | MPV | 7.7Comment: Testing | fl | EXTERNAL | | | | performed at [facility];[address] | | LAB | | | | [address];[place] | | | | | | [address] | | | | + + + + + + | Differentia | AUTOMATEDComment: | | EXTERNAL | | | l Type | Testing performed at | | LAB | | | | [facility];[address];[place] [address] | | | | + + + + + + | % Segmented | 57.9 | % | EXTERNAL | | | | | | LAB | | | Neutrophils | | | | | + + + + + + | % | 27.9 | % | EXTERNAL | | | Lymphocytes | | | LAB | | + + + + + + | % Monocytes | 10.5 | % | EXTERNAL | | | | | | LAB | | + + + + + + | % | 3.3 | % | EXTERNAL | | | Eosinophils | | | LAB | | + + + + + + | % Basophils | 0.4 | % | EXTERNAL | | | | | | LAB | | + + + + + + | Absolute | 4.6 | 1.9 - 7.4 K/uL | EXTERNAL | | | Segmented | | | LAB | | | Neutrophils | | | | | + + + + + + | Absolute | 2.2 | 1.0 - 3.9 K/uL | EXTERNAL | | | Lymphocytes | | | LAB | | + + + + + + | Absolute | 0.8 | 0 - 0.8 K/uL | EXTERNAL | | | Monocytes | | | LAB | | + + + + + + | Absolute | 0.3 | 0 - 0.5 K/uL | EXTERNAL [...] + +---------+ + + Comprehensive Metabolic Panel (02/16/2013 10:12 AM PST) + + + + + + | Component | Value | Ref Range | Performed | Pathologist | | | | | At | Signature | + + + + + + | Na | 138Comment: Testing | 135 - 143 | EXTERNAL | | | | performed at [facility];[address] | mmol/L | LAB | | | | [address];[place] | | | | | | [address] | | | | + + + + + + | K | 3.9Comment: Testing | 3.5 - 4.9 | EXTERNAL | | | | performed at [facility];[address] | mmol/L | LAB | | | | [address];[place] | | | | | | [address] | | | | + + + + + + | Cl | 102Comment: Testing | 99 - 109 mmol/L | EXTERNAL | | | | performed at [facility];[address] | | LAB | | | | [address];[place] | | | | | | [address] | | | | + + + + + + | CO2 | 29Comment: Testing | 23 - 32 mmol/L | EXTERNAL | | | | performed at [facility];[address] | | LAB | | | | [address];[place] | | | | | | [address] | | | | + + + + + + | Anion Gap | 10Comment: Testing | 5 - 20 mmol/L | EXTERNAL | | | | performed at [facility];[address] | | LAB | | | | [address];[place] | | | | | | [address] | | | | + + + + + + | Glucose, | 276 (H)Comment: Testing | 65 - 99 mg/dL | EXTERNAL | | | Fasting | performed at [facility];[address] | | LAB | | | | [address];[place] | | | | | | [address] | | | | + + + + + + | BUN | 21Comment: Testing | 8 - 25 mg/dL | EXTERNAL | | | | performed at [facility];[address] | | LAB | | | | [address];[place] | | | | | | [address] | | | | + + + + + + | Creatinine | 1.46 (H)Comment: Testing | 0.70 - 1.30 | EXTERNAL | | | | performed at [facility];[address] | mg/dL | LAB | | | | [address];[place] | | | | | | [address] | | | | + + + + + + | BUN/Creatin | 14Comment: Testing | | EXTERNAL | | | ine Ratio | performed at [facility];[address] | | LAB | | | | [address];[place] | | | | | | [address] | | | | + + + + + + | Calcium | 9.0Comment: Testing | 8.5 - 10.2 | EXTERNAL | | | | performed at [facility];[address] | mg/dL | LAB | | | | [address];[place] | | | | | | [address] | | | | + + + + + + | Protein, | 7.4Comment: Testing | 6.3 - 8.2 g/dL | EXTERNAL | | | Total | performed at [facility];[address] | | LAB | | | | [address];[place] | | | | | | [address] | | | | + + + + + + | Albumin | 3.5 (L)Comment: Testing | 3.6 - 5.0 g/dL | EXTERNAL | | | | performed at [facility];[address] | | LAB | | | | [address];[place] | | | | | | [address] | | | | + + + + + + | Globulin | 3.8Comment: Testing | 1.3 - 4.9 g/dL | EXTERNAL | | | | performed at [facility];[address] | | LAB | | | | [address];[place] | | | | | | [address] | | | | + + + + + + | A/G Ratio | 0.9 (L)Comment: Testing | 1.0 - 2.4 | EXTERNAL | | | | performed at [facility];[address] | | LAB | | | | [address];[place] | | | | | | [address] | | | | + + + + + + | Bilirubin | 0.3Comment: Testing | 0.1 - 1.5 mg/dL | EXTERNAL | | | Total | performed at [facility];[address] | | LAB | | | | [address];[place] | | | | | | [address] | | | | + + + + + + | ALP, | 103Comment: Testing | 35 - 115 U/L | EXTERNAL | | | External | performed at [facility];[address] | | LAB | | | | [address];[place] | | | | | | [address] | | | | + + + + + + | AST | 35Comment: Testing | 10 - 45 U/L | EXTERNAL | | | | performed at [facility];[address] | | LAB | | | | [address];[place] | | | | | | [address] | | | | + + + + + + | ALT | 31Comment: Testing | 10 - 65 U/L | EXTERNAL | | | | performed at [facility];[address] | | LAB | | | | [address];[place] | | | | | | [address] | | | | + + + [...] | | | | | at [facility];[address];[place] [address] | | | | + + + [...] + | Diagnosis | + + | Hyperglycemia Other abnormal glucose | + + | Dizziness Dizziness and giddiness | + + documented in this encounter
--- OUTSIDE RECORDS SUMMARY | ~2019-10-12 | XMS | Encounter Summary ---
Demographics + + + | Address | [address] | | | [place] [address] | + + + | Home Phone | | + + + | Preferred Language | Unknown | + + + | Marital Status | | + + + | Orthodox Affiliation | 1027 | + + + | Race | White | + + + | Ethnic Group | Not or | + + + Author + + + | Author | [facility] | | | and [place] | + + + | Organization | [facility] | | | and [place] | + + + | Address | Unknown | + + + | Phone | Unavailable | + + + Support + + + + + | Name | Relationship | Address | Phone | + + + + + | Sammi Kohler | ECON | [place] [address] | | + + + + + Care Team Providers + +------+ + | Care Sales Expert Home Theater Name | Role | Phone | + +------+ + PCP | Unavailable | + +------+ + Encounter Details +--------+ + + + + | Date | Type | Department | Care Team | Description | +--------+ + + + + | 03/13/ | Emergency | [facility] | Gurvinder Cruz, | Abdominal pain; | | 2014 | | [facility] | MD [address] | Constipation | | | | EMERGENCY CENTER | [place], [place] | | | | | [address] | [address] | | | | | [place], [place] | [phone] | | | | | [address] | | | | | | [phone] | | | +--------+ + + + [...] 03/13/1316 Date of Service: 03/13/13227 Status: Signed Terrazzo Helper: Gurvinder Cruz MD (Physician) [facility] Department of Emergency Medicine 2:15 AM History [...] - CHOLECYSTECTOMY; Surgeon: Jevon Vargas DO; Location: [facility] MAIN OR; Service: General; Laterality: N/A; Abdominal surgery Cholecystectomy Skin cancer excision 10/10/2012 Procedure: EXCISION - SKIN CANCER; Surgeon: Sy Fierro MD; Location: [facility] MAIN OR ; Service: Plastics; Laterality: Left; upper arm and upper back w/frozen section Esophagogastroduodenoscopy 03/03/2013 Procedure: ESOPHAGOGASTRODUODENOSCOPY; Surgeon: Howie Gibson MD; Location: [facility] ENDOSCOPY; S ervice: Gastroenterology; Laterality: N/A; Colonoscopy 03/04/2013 Procedure: COLONOSCOPY; Surgeon: Howie Gibson MD; Location: [facility] ENDOSCOPY; Service: Gastroe nterology; Laterality: [...] on file Social History Narrative Lives in half-way, IADL, full code Family History Problem Relation Age of Onset Heart disease Father Heart disease Sister Diabetes type II Sister Review of Systems Constitutional: Negative for fever, chills Eyes: Negative for vision changes Nose: Negative for congestion, nosebleeds Throat: Negative for sore throat CV/Resp: Negative for chest pain, ivmpmnzay-jk-awffnj, cough GI: Negative for vomiting, or diarrhea [...] Value Ref Range Date/Time Complete Metabolic Panel [[id number]] (Abnormal) Collected:03/13/13249 Order Status:Completed Updated:03/13/13344 Specimen Information:Blood [...] U/L EGFR >60 >60 mL/min/1.73m2 C-Reactive Protein [[id number]] (Abnormal) Collected:03/13/13249 Order Status:Completed Updated:03/13/13344 Specimen Information:Blood CRP 1.0 (H) <0.5 mg/dL Lipase [[id number]] Collected:03/13/13249 Order Status:Completed Updated:03/13/13344 LIPASE 166 73 - 393 U/L Urine Microscopic [[id number]] (Abnormal) Collected:03/13/13 030 Order Status:Completed Updated:03/13/13332 Specimen Information:Urine / Urine, Clean Catch WBC NONE SEEN 0 - 5 /hpf RBC NONE SEEN 0 - 2 /hpf EPITHELIAL 0-2 /lpf BACTERIA TRACE (A) NONE SEEN CBC w Auto Diff [[id number]] (Abnormal) Collected:03/13/13249 Order Status:Completed Updated:03/13/13316 Specimen Information:Blood [...] 0 - 0.1 K/uL POC clinitek 10 [[id number]] (Abnormal) Collected:03/13/13232 Order Status:Completed Updated:03/13/13237 Color, UA [...] result) Result time:03/13/13419 ED Interpretation Documented by Gruvinder Cruz MD (03/13/13419, [facility] Emergency Department, Emergency Medicine) No obstruction No free air Marked increase in stool ED Diagnoses Final diagnoses Abdominal pain Constipation Disposition: ED Disposition Discharge Condition at discharge: Stable Follow-up Information Follow up With Details Comments Contact Info [facility] Emergency Department If symptoms worsen [address] [facility] [address] [place] As needed [address] [facility] [address] Discharge Medications: New Prescriptions POLYETHYLENE GLYCOL (GLYCOLAX) [...] 03/13/13199 Date of Service: 03/13/13199 Status: Signed Terrazzo Helper: Shree Reilly RN (Registered Nurse) Patient given [...] | +--------+ + + + + | 09/10/ | Anti-coag | Anticoagulation | Brittany Zaragoza | | | 2020 | visit | | [address] | | | | | | [place], | | | | | | [place] [address] | | | | | | [phone] | | | | | | | [...] | | LAB | | | | [facility];[address] | | | | | | [address];[place] [address] | | | | + + + + + + | RBC, UA | NONE SEENComment: | 0 - 2 /hpf | EXTERNAL | | | | Testing performed at | | LAB | | | | [place];[address] | | [address];[place] [address] | | | | + + + + + + | Epithelial | 0-2Comment: Testing | /lpf | EXTERNAL | | | Cells | performed at [facility];[address] | | LAB | | | [address];[place] | | | | | | [address] | | | | + + + + + + | Bacteria, | TRACE (A)Comment: | | EXTERNAL | | | UA | Testing performed at | | LAB | | | | [place];[address];[place] [address] | | | | + + + [...] | | | | | At | [facility] | + + + + + + | WBC | 16.4 (H)Comment: Testing | 3.8 - 11.0 K/uL | EXTERNAL | | | | performed at [facility] | | LAB | | | | [address];[place], [place] | | | | | | [address] | | | | + + + + + + | Non- | 4.77Comment: Testing | 4.20 - 5.70 | EXTERNAL | | | Red Blood | performed at [facility];[address] | M/uL | LAB | | | Cells | [address];[place] | | | | | Counted | [address] | | | | + + + + + + | Hemoglobin | 13.3Comment: Testing | 13.2 - 17.0 | EXTERNAL | | | | performed at [facility];[address] | g/dL | LAB | | | | [address];[place] | | | | | | [address] | | | | + + + + + + | Hematocrit, | 39.1Comment: Testing | 39.0 - 50.0 % | EXTERNAL | | | POC | performed at [facility];[address] | | LAB | | | [address];[place] | | | | | | [address] | | | | + + + + + + | MCV | 81.9Comment: Testing | 80.0 - 100.0 fl | EXTERNAL | | | | performed at [facility];[address] | | LAB | | | [address];[place] | | | | | | [address] | | | | + + + + + + | MCH | 27.8Comment: Testing | 27.0 - 34.0 pg | EXTERNAL | | | | performed at [facility];[address] | | LAB | | | [address];[place] | | | | | | [address] | | | | + + + + + + | MCHC | 34.0Comment: Testing | 32.0 - 35.5 | EXTERNAL | | | | performed at [facility];[address] | g/dL | LAB | | | | [address];[place] | | | | | | [address] | | | | + + + + + + | RDW-CV | 44.2Comment: Testing | 37 - 53 fl | EXTERNAL | | | | performed at [facility];[address] | | LAB | | | [address];[place] | | | | | | [address] | | | | + + + + + + | Platelet | 245Comment: Testing | 150 - 400 K/uL | EXTERNAL | | | Count | performed at [facility];[address] | | LAB | | | Plasma | [address];[place] | | | | | | [address] | | | | + + + + + + | MPV | 7.7Comment: Testing | fl | EXTERNAL | | | | performed at [facility];[address] | | LAB | | | [address];[place] | | | | | | [address] | | | | + + + + + + | Differentia | AUTOMATEDComment: | | EXTERNAL | | | l Type | Testing performed at | | LAB | | | | [facility];[address];[place] [address] | | | | + + + [...] EXTERNAL | | | | performed at [facility] | | LAB | | | | [address];[place], [place] | | | | | | [address] | | | | + + + [...] EXTERNAL | | | | performed at [facility];[address] | | LAB | | | | [address] [facility];[place], [place] | | | | | | [address] | | | | + + + [...] EXTERNAL | | | | performed at [facility];[address] | mmol/L | LAB | | | | [address];[place] | | | | | | [address] | | | | + + + + + + | K | 3.7Comment: Testing | 3.5 - 4.9 | EXTERNAL | | | | performed at [facility];[address] | mmol/L | LAB | | | | [address];[place] | | | | | | [address] | | | | + + + + + + | Cl | 102Comment: Testing | 99 - 109 mmol/L | EXTERNAL | | | | performed at [facility];[address] | | LAB | | | [address];[place] | | | | | | [address] | | | | + + + + + + | CO2 | 27Comment: Testing | 23 - 32 mmol/L | EXTERNAL | | | | performed at [facility];[address] | | LAB | | | | [address];[place] | | | | | | [address] | | | | + + + + + + | Anion Gap | 11Comment: Testing | 5 - 20 mmol/L | EXTERNAL | | | | performed at [facility];[address] | | LAB | | | | [address];[place] | | | | | | [address] | | | | + + + + + + | Glucose, | 298 (H)Comment: Testing | 65 - 99 mg/dL | EXTERNAL | | | Fasting | performed at [facility];[address] | | LAB | | | | [address];[place] | | | | | | [address] | | | | + + + + + + | BUN | 17Comment: Testing | 8 - 25 mg/dL | EXTERNAL | | | | performed at [facility];[address] | | LAB | | | | [address];[place] | | | | | | [address] | | | | + + + + + + | Creatinine | 1.23Comment: Testing | 0.70 - 1.30 | EXTERNAL | | | | performed at [facility];[address] | mg/dL | LAB | | | | [address];[place] | | | | | | [address] | | | | + + + + + + | BUN/Creatin | 14Comment: Testing | | EXTERNAL | | | ine Ratio | performed at [facility];[address] | | LAB | | | | [address];[place] | | | | | | [address] | | | | + + + + + + | Calcium | 8.7Comment: Testing | 8.5 - 10.2 | EXTERNAL | | | | performed at [facility];[address] | mg/dL | LAB | | | | [address];[place] | | | | | | [address] | | | | + + + + + + | Protein, | 7.2Comment: Testing | 6.3 - 8.2 g/dL | EXTERNAL | | | Total | performed at [facility];[address] | | LAB | | | | [address];[place] | | | | | | [address] | | | | + + + + + + | Albumin | 3.3 (L)Comment: Testing | 3.6 - 5.0 g/dL | EXTERNAL | | | | performed at [facility];[address] | | LAB | | | | [address];[place] | | | | | | [address] | | | | + + + + + + | Globulin | 3.9Comment: Testing | 1.3 - 4.9 g/dL | EXTERNAL | | | | performed at [facility];[address] | | LAB | | | | [address];[place] | | | | | | [address] | | | | + + + + + + | A/G Ratio | 0.8 (L)Comment: Testing | 1.0 - 2.4 | EXTERNAL | | | | performed at [facility];[address] | | LAB | | | | [address];[place] | | | | | | [address] | | | | + + + + + + | Bilirubin | 0.3Comment: Testing | 0.1 - 1.5 mg/dL | EXTERNAL | | | Total | performed at [facility];[address] | | LAB | | | | [address];[place] | | | | | | [address] | | | | + + + + + + | ALP, | 102Comment: Testing | 35 - 115 U/L | EXTERNAL | | | External | performed at [facility];[address] | | LAB | | | | [address];[place] | | | | | | [address] | | | | + + + + + + | AST | 22Comment: Testing | 10 - 45 U/L | EXTERNAL | | | | performed at [facility];[address] | | LAB | | | [address];[place] | | | | | | [address] | | | | + + + + + + | ALT | 30Comment: Testing | 10 - 65 U/L | EXTERNAL | | | | performed at [facility];[address] | | LAB | | | [address];[place] | | | | | | [address] | | | | + + + [...] | | | | | | at [facility];[address] [place] [address] | | | | | | [facility];[place] [address] | | | | + + + [...]
--- OUTSIDE RECORDS SUMMARY | ~2019-10-12 | XMS | Encounter Summary ---
Demographics + + + | Address | [address] | | | [place] [address] | + + + | Home Phone | | + + + | Preferred Language | Unknown | + + + | Marital Status | | + + + | Taoism Affiliation | 1027 | + + + | Race | White | + + + | Ethnic Group | Not or | + + + Author + + + | Author | [facility] | | | and [place] | + + + | Organization | [facility] | | | and [place] | + + + | Address | Unknown | + + + | Phone | Unavailable | + + + Support + + + + + | Name | Relationship | Address | Phone | + + + + + | Sammi Kohler | ECON | [place] [address] | | + + + + + Care Team Providers + +------+ + | Care Web Designer Name | Role | Phone | + +------+ + | Holly Pack NP | PCP | | + +------+ + Reason for Visit + + + | Reason | Comments | + + + | Diarrhea (Adult) | Watery diarrhea 4 or more episodes per day, per [facility] has been | | | having diarrhea for weeks | + + + | Failure to Thrive | per MULTIMEDIA MANAGER patient needs social media campaign manager, states patient is unable | | | to care for himself | + + + Encounter Details +--------+ + + + + | Date | Type | Department | Care Team | Description | +--------+ + + + + | 07/14/ | Emergency | [facility] | Norah Barker MD | Uncontrolled type 2 | | 2020 | | MEDICAL CENTER | [address] | diabetes mellitus | | | | EMERGENCY CENTER | [place] [address] | with hyperglycemia | | | | [address] | [phone] | ([facility]) (Primary Dx); | | | | [place], [place] | | Uncontrolled | | | | [address] | | hypertension; | | | | [phone] | | Chronic diarrhea | +--------+ + + + + Social [...] + + + | Blood Pressure | 181/86 | 07/15/2019 2:00 PM | | | | | PDT | | + + + + + | Pulse | 70 | 07/15/2019 2:00 PM | | | | | PDT | | + + + + + | Temperature | 36.9 C (98.5 F) | 07/15/2019 12:17 PM | | | | | PDT | | + + + + + | Respiratory Rate | 18 | 07/15/2019 2:00 PM | | | | | PDT | | + + + + + | Oxygen Saturation | 97% | 07/15/2019 2:00 PM | | | | | PDT [...] following attachments cannot be sent through Care Everywhere.Diarrhea, Unkno wn Cause ([place] Islander)documented in this encounter Medications at Time of [...] + +---------+ + + | | Take 1-2 tablets by | 90 | 0 | 05/24/19 | | | HYDROcodone-acetamin | mouth every 4 hours | tablet | | 20 | 0 | | ophen (NORCO) 5-325 | as needed. | | | | | | mg per tablet | [...] +---------+ + + | meclizine | Take 1 tablet by | 60 | 0 | 03/27/19 | | | (ANTIVERT) 25 mg | mouth 3 times daily | tablet | | 20 | 0 | | tablet | as needed. | | | | | + + [...] + +---------+ + + | omeprazole | TAKE ONE CAPSULE BY | 90 | 3 | 06/28/19 | | | (PRILOSEC) 20 mg | MOUTH EVERY MORNING | capsule | | 20 | 0 | | capsule | (BEFORE BREAKFAST) | | | | | + + + +---------+ + + | tamsulosin | Take 1 capsule by | 60 | 4 | 11/08/19 | | | (FLOMAX) 0.4 mg CAPS | mouth 2 times daily. | capsule | | 19 | 0 | + + + +---------+ + + documented as of this encounter ED Notes Norah Barker MD - 07/15/2019 12:27 PM PDT [facility] Department of Emergency Medicine History of Present Illness Patient Identification Norah Gr is a 63 y.o. male. Patient information was obtained from patient History/Exam limitations:none ED13/ED13 Primary Care Doctor: Holly Pack NP Chief Complaint Chief Complaint Patient presents with Diarrhea (Adult) Watery diarrhea 4 or more episodes per day, per MULTIMEDIA MANAGER has been having diarrhea for weeks Failure to Thrive per MULTIMEDIA MANAGER patient needs social media campaign manager, states patient is unable to care for himself Norah Gr is a 63 y.o. male who presents with concern for kidney infection. Patient stat es that he was recently admitted to the hospital for a bladder infection. He is concerned t hat it is gone to his kidneys. He denies fevers, chills, cough, congestion, flank pain, hem aturia or dysuria. When asked why he feels that it is gone to his kidneys he states that he is more hungry than normal. He also notes that he has had intermittent diarrhea for the month. He does not feel that changed with antibiotic therapy while in the hospital. He was referred to the emergency department for further evaluation today. Past Medical History: Diagnosis Date Acute pulmonary embolism ([facility]) 10/14/2017 Anxiety ARF (acute renal failure) ([facility]) 03/02/2013 Atrial fibrillation ([facility]) Basal cell carcinoma 09/26/2012 arm and back COPD (chronic obstructive pulmonary disease) ([facility]) 03/02/2013 hypoxemia on 2 lts nc Depression Development delay Diabetes mellitus type II DVT (deep venous thrombosis) ([facility]) 03/29/2018 Facial droop 07/08/2013 GIB (gastrointestinal bleeding) [...] - CHOLECYSTECTOMY; Surgeon: Jevon Vargas DO; Location: [facility] OR; Service: General; Laterality: N/A; COLONOSCOPY COLONOSCOPY 03/04/2013 Procedure: COLONOSCOPY; Surgeon: Howie Gibson MD; Location: [facility] ENDOSCOPY; Service: Gastroen terology; Laterality: N/A; HERNIA REPAIR 07/03/2013 Procedure: LAPAROSCOPIC - HERNIA - INCISIONAL; Surgeon: Jevon Vargas DO; Location: [facility] MAIN OR; Service: General; Laterality: N/A; KNEE SURGERY rt knee, patella LEG SURGERY LLE OTHER SURGICAL HISTORY UNLISTED PROCEDURE ARTHROSCOPY OTHER SURGICAL HISTORY Left 05/05/2014 SKIN LESION EXCISION - Procedure: EXCISION - LESION - FROZEN SECTION; Surgeon: Sy murcia MD; Location: [facility] OR; Service: Plastics; Laterality: Left; forearm SKIN BIOPSY SKIN CANCER EXCISION Left 10/10/2012 Procedure: EXCISION - SKIN CANCER; Surgeon: Sy Fierro MD; Location: [facility]; Service: Plastics; Laterality: Left; upper arm and upper back w/frozen section UPPER GASTROINTESTINAL ENDOSCOPY UPPER GASTROINTESTINAL ENDOSCOPY 03/03/2013 Procedure: ESOPHAGOGASTRODUODENOSCOPY; Surgeon: Howie Gibson MD; Location: [facility] ENDOSCOPY; Se rvice: Gastroenterology; Laterality: N/A; Prior to Admission medications Medication Sig Start Date End Date Taking? Authorizing Provider apixaban (ELIQUIS) 5 mg tablet Take 1 tablet by mouth 2 times daily. Patient not taking: Reported on 07/03/2019 11/07/18 Holly Pack NP ARIPiprazole (ABILIFY) 5 mg tablet Take 1 tablet by mouth Daily. Patient not taking: Reported on 07/03/2019 05/18/19 Cristo Ahn MD atorvaSTATin (LIPITOR) 40 mg tablet Take 1 tablet by mouth nightly. Patient not taking: Reported on 07/03/2019 12/26/18 Holly Pack NP Blood Glucose Monitoring Suppl (BLOOD GLUCOSE MONITOR SYSTEM) w/Device KIT Dispense brand p er patient preference 04/18/19 Holly Pack NP Blood Pressure KIT Dispense as insurance allows to check Blood Pressure one time daily each day. 06/04/19 Holly Pack NP budesonide-formoterol (SYMBICORT) 160-4.5 mcg/puff inhaler Inhale 2 puffs into the lungs 2 times daily. Patient not taking: Reported on 07/03/2019 11/01/18 11/01/19 Holly Pack NP finasteride (PROSCAR) 5 mg tablet Take 1 tablet by mouth Daily. Patient not taking: Reported on 07/03/2019 11/07/18 Holly Pack NP Glucose Blood (BLOOD GLUCOSE TEST STRIPS) STRP For blood sugar testing 4 times daily 0 Holly Pack NP hydrALAZINE (APRESOLINE) 25 mg tablet Take 1 tablet by mouth Twice daily as needed (in add ition to scheduled. for bp > 170/80). 07/10/19 Holly Pack NP HYDROcodone-acetaminophen (NORCO) 5-325 mg per tablet Take 1-2 tablets by mouth every 4 remi rs as needed. Patient not taking: Reported on 07/03/2019 05/24/19 Holly Pack NP insulin detemir (LEVEMIR FLEXTOUCH) 100 units/mL injection (pen) Inject 45 Units under the skin nightly. 05/30/19 Holly Pack NP insulin lispro (HUMALOG KWIKPEN) 100 units/mL injection (pen) Inject 20 Units under the ski n 3 times daily (with meals). 05/30/19 Holly Pack NP Insulin Pen Needle (BD PEN NEEDLE KYAW U/F) 32G X 4 MM MISC For insulin administration 4 ti mes daily 11/07/18 Holly Pack NP Lancets (ACCU-CHEK MULTICLIX) MISC 1 each by Other route 4 times daily. 04/18/19 Holly malave NP lisinopril (PRINIVIL,ZESTRIL) 40 MG tablet Take 1 tablet by mouth Daily. Patient not taking: Reported on 07/03/2019 03/27/19 Holly Pack NP meclizine (ANTIVERT) 25 mg tablet Take 1 tablet by mouth 3 times daily as needed. Patient not taking: Reported on 07/03/2019 03/27/19 Holly Pack NP melatonin 3 mg TABS Take 1 tablet by mouth nightly as needed for Insomnia. Patient not taking: Reported on 07/03/2019 05/18/19 Cristo Ahn MD metFORMIN (GLUCOPHAGE) 500 mg tablet Take 1 tablet by mouth 2 times daily (with breakfast & dinner). Patient not taking: Reported on 07/03/2019 11/07/18 Holly Pack NP omeprazole (PRILOSEC) 20 mg capsule TAKE ONE CAPSULE BY MOUTH EVERY MORNING (BEFORE ) Patient not taking: Reported on 07/03/2019 06/28/19 Holly Pack NP tamsulosin (FLOMAX) 0.4 mg CAPS Take 1 capsule by mouth 2 times daily. Patient not taking: Reported on 07/03/2019 11/07/18 Holly Pack NP Allergies Allergen Reactions Nitroglycerin Swelling Tongue swelling Vitamin B12 Rash Rash Social History Tobacco Use Smoking status: Never Smoker Smokeless tobacco: Never Used Substance Use Topics Alcohol use: Not Currently Comment: Alcoholic Drinks/day: occassional Drug use: Never Comment: Drug use: No Family History Problem Relation Age of Onset Heart disease Father Heart disease Sister Diabetes, NIDDM Sister Other (see comment) Brother Heart Problems Past personal, family, social history noted as above and utilized in assesment and plan for mulation. Review of Systems Positive for: Concern for kidney infection, chronic loose stools No fever, chills, nausea or vomiting. No vision changes, difficulty breathing. No headache, chest pain, abdominal pain, weakness or rash. No difficulty with urination or constipation. No other complaints. See HPI for further relevant details. All systems otherwise negative, except as recorded above and as recorded in the HPI. Physical Exam Vitals: 07/15/19 1217 BP: (!) 226/97 Pulse: 83 Resp: 20 Temp: 36.9 C (98.5 F) TempSrc: Temporal SpO2: 97% INTERPRETATION OF VITALS Pulse Oximetry interpretation: Normal Hypertensive. Otherwise normal PHYSICAL EXAM Appearance: Alert. No acute distress. Head: Normal external exam. Eyes: EOMI, PERRL, no scleral icterus. ENT: Normal external ENT inspection. Neck: Supple. FROM. CVS: Normal heart rate and rhythm. Heart sounds normal. Pulses normal. Respiratory: No respiratory distress. No wheezing, rales, or rhonchi. Abdomen: Non-distended.Soft and nontender. No rebound or guarding. Obese. Genitourinary: Deferred. Back: Moves without difficulty. Skin: Skin warm and dry. Extremities: No deformity. Neurological: Moves all extremities. No gross deficit. Medical Decision Making and Emergency Department Course ED Department Course: 12:27 PM Norah Gr is a 63 y.o. male who presents with a chief complaint of concern for kidney i nfection. Patient is clinically well-appearing and afebrile. No CVA tenderness. Will obta in screening labs. With his recent antibiotics and report of diarrhea we will obtain stool samples to evaluate for C. difficile.. Blood work fairly unremarkable with the exception of hyperglycemia. Urinalysis negative for infection. Patient states he is not had any diarrhea for a day or so and he does not feel that he woul d be able to provide a bowel movement here. States that he does not feel he needs any socia l services and is unsure why the nurse practitioner states he is not able to care for himsel f. Declines social media campaign manager consult. Requests Tylenol for his headache. At this time I feel the patient is stable for outpatient management with close follow-up.Ty pical anticipatory guidelines and strict return to Emergency Department precautions have bee n given. All involved are understanding of and in agreement with this plan. All questions kelley ve been addressed to the best of my ability. Medications provided during ED visit Medications acetaminophen (TYLENOL) tablet 1,000 mg (1,000 mg Oral Given 07/15/19 1402) Records Reviewed Old medical records. Nursing notes. Previous radiology studies. Laboratory Evaluation Results Procedure Component Value Ref Range Date/Time Urinalysis With Microscopic [[id number]] (Abnormal) Collected: 07/15/19 1328 Order Status: Completed Specimen: Urine, Clean Catch Updated: 07/15/19 1342 Color, UA YELLOW Clarity, UA CLEAR Specific [place], Urine 1.020 1.002 - 1.030 Leukocyte esterase, UA NEGATIVE NEG Nitrite, UA NEGATIVE NEG Urobilinogen, Ur NORMAL <1.6 mg/dL Protein, Urine (mg/dL) NEGATIVE NEG mg/dL pH, Urine 6.0 5.0 - 8.0 Blood, UA NEGATIVE NEG Ketones, UA NEGATIVE NEG mg/dL Bilirubin, UA NEGATIVE NEG Glucose, Ur >500 NEG mg/dL WBC UA 0-2 0 - 5 /hpf Red Blood Cells, Urine NONE SEEN 0 - 2 /hpf Squamous Epithelial Cells, Urine 3-5 /lpf Bacteria, Urine NONE SEEN NONE Comprehensive Metabolic Panel [[id number]] (Abnormal) Collected: 07/15/191219 Order Status: Completed Specimen: Blood Updated: 07/15/191249 Na 138 135 - 145 mmol/L K 3.4 3.5 - 4.9 mmol/L Cl 102 99 - 109 mmol/L CO2 27 23 - 32 mmol/L Anion Gap 12 5 - 20 mmol/L Glucose 358 65 - 99 mg/dL BUN 13 8 - 25 mg/dL Creatinine 0.90 0.70 - 1.30 mg/dL BUN/Creatinine Ratio 14 Calcium 8.9 8.5 - 10.5 mg/dL Protein, Total 6.2 6.3 - 8.2 g/dL Albumin 3.8 3.3 - 4.8 g/dL Globulin 2.4 1.3 - 4.9 g/dL A/G Ratio 1.6 1.0 - 2.4 BILIRUBIN, TOTAL 0.6 0.1 - 1.5 mg/dL ALK PHOS 147 35 - 115 U/L AST 18 10 - 45 U/L ALT 13 10 - 65 U/L Estimated GFR >60 >60 mL/min/1.73m2 Lipase [[id number]] Collected: 07/15/191219 Order Status: Completed Specimen: Blood Updated: 07/15/19 125 Lipase 44 12 - 53 U/L C-Reactive Protein [[id number]] (Abnormal) Collected: 07/15/191219 Order Status: Completed Specimen: Blood Updated: 07/15/19 125 CRP 0.6 <0.5 mg/dL Protime INR [[id number]] Collected: 07/15/191219 Order Status: Completed Specimen: Blood Updated: 07/15/19 1245 INR 1.0 CBC with Differential [[id number]] (Abnormal) Collected: 07/15/19 1220 Order Status: Completed Specimen: Blood Updated: 07/15/19 1240 WBC 8.32 3.80 - 11.00 K/uL RBC 4.93 4.20 - 5.70 M/uL Hemoglobin 13.3 13.2 - 17.0 g/dL Hematocrit 41.2 39.0 - 50.0 % MCV 83.6 80.0 - 100.0 fl MCH 27.0 27.0 - 34.0 pg MCHC 32.3 32.0 - 35.5 g/dL RDW-SD 41.1 37 - 53 fl Platelet Count 255 150 - 400 K/uL MPV 9.8 fl Diff Type AUTOMATED % nRBC 0.0 0 /100WBC % Neutrophils 66.50 % IMMATURE GRANULOCYTE 0.70 % % Lymphocytes 18.50 % Monocyte % 10.90 % Eosinophils % 3.00 % Basophils % 0.40 % Neutrophils, Absolute 5.53 1.90 - 7.40 K/uL IMMATURE GRANS AB 0.06 0.00 - 0.07 K/uL Absolute Lymphocytes 1.54 1.00 - 3.90 K/uL Absolute Monocytes 0.91 0.00 - 0.80 K/uL Eosinophils, Absolute 0.25 0.00 - 0.50 K/uL Basophils, Absolute 0.03 0.00 - 0.10 K/uL Lab Interpretation I have reviewed lab results from the emergency department workup and abnormal results have been posted to the chart. Pertinent positive and negative findings have been addressed appr opriately. Radiology and ECG Evaluation No results found. Diagnosis: 1. Uncontrolled type 2 diabetes mellitus with hyperglycemia (HCC) 2. Uncontrolled hypertension 3. Chronic diarrhea Disposition: ED Disposition ED Disposition Condition Comment Discharge Stable Follow up: Follow-up Information Holly Pack NP. Specialty: Nurse Practitioner - Primary Care Contact information: [facility] [place] [address] [address] Discharge Medications: ED Prescriptions None This document has been prepared with a voice recognition system. The possibility of "sound alike" candy counter clerk errors, addition and/or deletions may occur. If there is any question p lease contact the author of the document. Please note appropriate PPE was worn during all interactions with the patient. Procedures Norah Bakrer MD 07/15/19 1422 [email or web address] goldberg RN - 07/15/2019 12:14 PM PDTBed: ED13 Expected date: Expected time: Means of arrival: Comments: 172 documented in this encounter Plan of Treatment +--------+ + + + + | Date | Type | Specialty | Care Team | Description | +--------+ + + + + | 10/16/ | Anti-coag | Anticoagulation | Brittany Zaragoza | | | 2019 | visit | | [address] | | | | | | [place], | | | | | | [place] [address] | | | | | | [phone] | | | | | | | | +--------+ + + + + + +------+--------+ + + | Name | Type | Priori | Associated Diagnoses | Date/Time | | | | ty | | | + +------+--------+ + + | ED INFORMATION | COLTON | Routin | | 07/15/2019 12:14 PM | | EXCHANGE | | e | | PDT | + +------+--------+ + + documented as of this encounter Procedures + +--------+ + + + | Procedure Name | Priori | Date/Time | Associated Diagnosis | Comments | | | ty | | | | + +--------+ + + + | URINALYSIS WITH | STAT | 07/15/2019 | | Results for this | | MICROSCOPIC | | 1:28 PM | | procedure are in the | | | | PDT | | results section. | + +--------+ + + + | PROTIME INR | STAT | 07/15/2019 | | Results for this | | | | 12:20 PM | | procedure are in the | | | | PDT | | results section. | + +--------+ + + + | CBC WITH | STAT | 07/15/2019 | | Results for this | | DIFFERENTIAL | | 12:20 PM | | procedure are in the | | | | PDT | | results section. | + +--------+ + + + | C-REACTIVE PROTEIN | STAT | 07/15/2019 | | Results for this | | | | 12:20 PM | | procedure are in the | | | | PDT | | results section. | + +--------+ + + + | LIPASE | STAT | 07/15/2019 | | Results for this | | | | 12:20 PM | | procedure are in the | | | | PDT | | results section. | + +--------+ + + + | COMPREHENSIVE | STAT | 07/15/2019 | | Results for this | | METABOLIC PANEL | | 12:20 PM | | procedure are in the | | | | PDT | | results section. | + +--------+ + + + | ED INFORMATION | Routin | 07/15/2019 | | | | EXCHANGE | e | 12:14 PM | | | | | | PDT | | | + +--------+ + + + +---+--------+ | | | | | Proced | | | ure | | | Note - | | | Richard, | | | Lab In | | | | | | Hlseve | | | n - | | | 07/14/ | | | 2020 | | | 12:15 | | | PM PDT | | [...] | | | ON?06[birth year] | | | 08/202 | | | 0 | | | 12:14? | | | GR, | | | NORAH | | | | | | M?MRN: | | | | | | [id number] | | | [id number] | | | riteri | | | [...] | | | On: | | | 06/04/ | | | 2020 | | | [...] | | | Center | | | 21 0 | | | [facility] | | | s | | | Medica | | | l | | | Center | | | 7 0 | | | [place] | | | sd | | | Commun | | | ity | | | Hospit | | | al 1 0 | | | Total | | | 31 0 | | | Note: | | [...] | | out | | | of 31 | | | in the | | [...] | | int | | | [place] 8, | | [...] | | | Thrive | | | May | | | [...] | | | Feb | | | 13, | | | 2020 | | | [facility] | | | | | | [facility] | | | al | | | [facility] | | | [place] | | | [place] | | | Emerge | | | ncy | | | | | | Dizzin | | | ess | | | | | | Cough[place] | | | ng Up | | | Blood | | | | | | Hemopt | | | ysis | | | Type | | | [...] | | | ts | | | Dec | | | 27, | | | 2019 | | | [facility] | | | s [facility] | | | [place] | | | [place] | | | Emerge | | | ncy | | | Chief | | | Compla | | | int: | | | ELEVAT | | | ED | | | BLOOD | | | SUGAR | | | | | | Recent [...] | | | int | | | May | | | 27, | | | 2020 | | | [facility] | | | | | | Region | | | al | | | [facility] | | | [place] | | | [place] | | | Wealth Management Advisor | | | al | | | [...] | | | [place] | | | Wealth Management Advisor | | | al | | | [...] | | | HOLLY, | | | DIGITAL STRATEGIST | | | Nurse | | | [...] | | | /notif | | | [id number] | | | [id number] | | | [id number] | | | [id number] | | | [id number] | | | [id number] | | | 36 | | | PLEASE | | | [...] | +---+--------+ documented in this encounter Results Urinalysis With Microscopic (07/15/2019 1:28 PM PDT) + + + + + [...] - 1.030 | [facility] | | | [place], | | | LABORATORY | | | [...] + + + | pH, Urine | 6.0 | 5.0 - 8.0 | [facility] | [...] + + + + | Squamous | 3-5 | /lpf | [facility] | | | Epithelial | | | LABORATORY | | | Cells, | | | | | | Urine | | | | | + + + + + + | Bacteria, | NONE SEENComment: | NONE | [facility] | | | Urine | Testing performed at | | LABORATORY | | | | [facility] | | | | | | [place] [address] | | | | + + + [...] | + + + + + | [facility] | [address] | [place] [address] | [phone] | + + + + + C-Reactive Protein (07/15/2019 12:20 PM PDT) + + + + + + | Component | Value | Ref Range | Performed | Pathologist | | | | | At | Signature | + + + + + + | CRP | 0.6 (H)Comment: Testing | <0.5 mg/dL | [facility] | | | | performed at [facility] | | LABORATORY | | | | [address];[place], [place] | | | | | | [address] | | | | + + + + + + + + | Specimen | + + | Blood | + + + + + + + | Performing | Address | City/State/Zipcode | Phone Number | | Organization | | | | + + + + + | [facility] | [address] | [place] [address] | [phone] | + + + + + Protime INR (07/15/2019 12:20 PM PDT) + + + + + + | Component | Value | Ref Range | Performed | Pathologist | | | | | At | Signature | + + + + + + | INR | 1.0Comment: REFERENCE | | [facility] | | | | RANGE:0.9 - 1.2 [...] | | | | | performed at [facility];[address] | | | [address];[place] | | | | | | [address] | | | | + + + + + + + + | Specimen | + + | Blood | + + + + + + + | Performing | Address | City/State/Zipcode | Phone Number | | Organization | | | | + + + + + | [facility] | [address] | [place] [address] | [phone] | + + + + + Lipase (07/15/2019 12:20 PM PDT) + + + + + + | Component | Value | Ref Range | Performed | Pathologist | | | | | At | Signature | + + + + + + | Lipase | 44Comment: Testing | 12 - 53 U/L | LUIS ALBERTO | | | | performed at [facility];[address] | | LABORATORY | | | | [address];[place] | | | | | | [address] | | | | + + + + + + + + | Specimen | + + | Blood | + + + + + + + | Performing | Address | City/State/Zipcode | Phone Number | | Organization | | | | + + + + + | [facility] | [address] | [place] [address] | [phone] | + + + + + Comprehensive Metabolic Panel (07/15/2019 12:20 PM PDT) + + + + + [...] + + + + | Cl | 102 | 99 - 109 mmol/L | [facility] [...] + + + + | Glucose | 358 (H) | 65 - 99 mg/dL | [...] + + + + | Protein, | 6.2 (L) | 6.3 - 8.2 g/dL | [facility] | | | Total | | | LABORATORY | | + + + + + + | Albumin | 3.8 | 3.3 - 4.8 g/dL | [facility] | | | | | | LABORATORY | | + + + + + + | Globulin | 2.4 | 1.3 - 4.9 g/dL | [facility] | | | | | | LABORATORY | | + + + + + + | A/G Ratio | 1.6 | 1.0 - 2.4 | [facility] | | | | | | LABORATORY | | + + + + + + | BILIRUBIN, | 0.6 | 0.1 - 1.5 mg/dL | [facility] | | | TOTAL | | | LABORATORY | | + + + + + + | ALK PHOS | 147 (H) | 35 - 115 U/L | [facility] | | | | | | LABORATORY | | + + + + + + | AST | 18 | 10 - 45 U/L | [facility] | | | | | | LABORATORY | | + + + + + + | ALT | 13 | 10 - 65 U/L | [facility] [...] | | | | | performed at [facility];[address] | | | | | | [address];[place] | | | | | | [address] | | | | + + + + + + + + | Specimen | + + | Blood | + + + + + + + | Performing | Address | City/State/Zipcode | Phone Number | | Organization | | | | + + + + + | [facility] | [address] | [place] [address] | [phone] | + + + + + CBC with Differential (07/15/2019 12:20 PM PDT) + + + + + + | Component | Value | Ref Range | Performed | Pathologist | | | | | At | Signature | + + + + + + | WBC | 8.32 | 3.80 - 11.00 | [facility] | | | | | K/uL | LABORATORY | | + + + + + + | Red Blood | 4.93 | 4.20 - 5.70 | [facility] | | | Cells | | M/uL | LABORATORY | | + + + + + + | Hemoglobin | 13.3 | 13.2 - 17.0 | [facility] | | | | | g/dL | LABORATORY | | + + + + + + | Hematocrit | 41.2 | 39.0 - 50.0 % | [facility] | | | | | | LABORATORY | | + + + + + + | MCV | 83.6 | 80.0 - 100.0 fl | [facility] | | | | | | LABORATORY | | + + + + + + | MCH | 27.0 | 27.0 - 34.0 pg | [facility] [...] + + + + | Platelet | 255 | 150 - 400 K/uL | [facility] [...] + + + + | % | 66.50 | % | [facility] | | | Neutrophils | | | LABORATORY | | + + + + + + | IMMATURE | 0.70 | % | [facility] | | | GRANULOCYTE | | | LABORATORY | | + + + + + + | % | 18.50 | % | [facility] | | | Lymphocytes | | | LABORATORY | | + + + + + + | Monocyte % | 10.90 | % | [facility] | | | | | | LABORATORY | | + + + + + + | Eosinophils | 3.00 | % | [facility] | | | % | | | LABORATORY | | + + + + + + | Basophils % | 0.40 | % | [facility] | | | | | | LABORATORY | | + + + + + + | Neutrophils | 5.53 | 1.90 - 7.40 | [facility] | | | , Absolute | | K/uL | LABORATORY | | + + + + + + | IMMATURE | 0.06Comment: NOTE NEW | 0.00 - 0.07 | [facility] | | | GRANS AB | REFERENCE RANGE | K/uL | LABORATORY | | + + + + + + | Absolute | 1.54 | 1.00 - 3.90 | [facility] | | | Lymphocytes | | K/uL | LABORATORY | | + + + + + + | Absolute | 0.91 (H) | 0.00 - 0.80 | [facility] | | | Monocytes | | K/uL | LABORATORY | | + + + + + + | Eosinophils | 0.25 | 0.00 - 0.50 | [facility] | | | , Absolute | | K/uL | LABORATORY | | + + + + + + | Basophils, | 0.03Comment: Testing | 0.00 - 0.10 | [facility] | | | Absolute | [place] [facility] [place] | [place]uL | [place]ORAT[place] | | | | [address];[place] | | | | | | [id number] | | | | + + + + + + + + | Specimen | + + | Blood | + + + + + + + | Performing | Address | City/State/Zipcode | Phone Number | | Organization | | | | + + + + + | [facility] | [address] | [place] [address] | [phone] | + + + + + documented in this encounter Visit Diagnoses + + | Diagnosis | + + | Uncontrolled type 2 diabetes mellitus with hyperglycemia (HCC) - Primary | + + | Uncontrolled hypertension Unspecified essential hypertension | + + | Chronic diarrhea Diarrhea | + + documented in this encounter Administered Medications + +--------+ + +------+------+ | Medication Order | MAR | Action | Dose | Rate | Site | | | Action | Date | | | | + +--------+ + +------+------+ | acetaminophen (TYLENOL) tablet | Given | 07/15/19 | 1,000 mg | | | | 1,000 mg 1,000 mg, Oral, ONCE, | | 20 2:02 | | | | | 07/15/19 at 1400, For 1 dose | | PM PDT | | | | + +--------+ + +------+------+ +---+---+ | | | +---+---+ documented in [...]
--- OUTSIDE RECORDS SUMMARY | ~2019-10-12 | XMS | Encounter Summary ---
Demographics + + + | Address | [address] | | | [place] [address] | + + + | Home Phone | | + + + | Preferred Language | Unknown | + + + | Marital Status | | + + + | Confucianist Affiliation | [id number] | + + + | Race | White | + + + | Ethnic Group | Not or | + + + Author + + + | Author | [facility] | | | and [place] | + + + | Organization | [facility] | | | and [place] | + + + | Address | Unknown | + + + | Phone | Unavailable | + + + Support + + + + + | Name | Relationship | Address | Phone | + + + + + | Sammi Kohler | ECON | [place] [address] | | + + + + + Care Team Providers + +------+ + | Care Copier Repair Technician Name | Role | Phone | + +------+ + | Mireya Pack NP | PCP | | + +------+ + Reason for Visit + + + | Reason | Comments | + + + | Fall | tripped over a curve landing on his R knee and elbow | + + + | Leg Deformity | R | + + + Auth/Cert +--------+--------+ + + + + | Status | Reason | Specialty | Diagnoses / | Referred By | Referred To | | | | | Procedures | Contact | Contact | +--------+--------+ + + + + | | | | Diagnoses | | | | | | | Chronic | | | | | | | anticoagulat | | | | | | | ion Fall, | | | | | | | initial | | | | | | | encounter | | | | | | | Traumatic | | | | | | | hematoma of | | | | | | | right knee, | | | | | | | initial | | | | | | | encounter | | | | | | | Need for | | | | | | | assistance | | | | | | | due to | | | | | | | unsteady | | | | | | | gait | | | +--------+--------+ + + + + Encounter Details +--------+ + + + + | Date | Type | Department | Care Team | Description | +--------+ + + + + | 05/14/ | Emergency | [facility] | Bimal Ramirez S, | Fall, initial | | 2019 - | | [facility] | [address] | encounter (Primary | | | | CARE FLOOR [address] | [place] | Dx); Traumatic | | 05/17/ | | [address] | [id number] | hematoma of right | | 2019 | | [place], [place] | | knee, initial | | | | [address] | Preet, | encounter; Chronic | | | | [phone] | MD [address] | anticoagulation; | | | | | [address] | Need for assistance | | | | | [place] [address] | due to unsteady gait | | | | | [phone] | | | | | | | | | | | | Keisha Ahn MD | | | | | | [address] | | | | | | [place] [address] | | | | | | [phone] | | | | | | | [...] + + + | Blood Pressure | 129/70 | 05/18/2019 10:42 AM | | | | | PDT | | + + + + + | Pulse | 69 | 05/18/2019 10:42 AM | | | | | PDT | | + + + + + | Temperature | 36.8 C (98.2 F) | 05/18/2019 7:54 AM | | | | | PDT | | + + + + + | Respiratory Rate | 18 | 05/18/2019 10:42 AM | | | | | PDT | | + + + + + | Oxygen Saturation | 98% | 05/18/2019 10:42 AM | | | | | PDT | | + + + + + | Inhaled Oxygen | - | - | | | Concentration | | | | + + + + + | Weight | 104.3 kg (229 lb 15 | 05/18/2019 4:00 AM | | | | oz) | PDT | | + + + + + | Height | 180.3 cm (5' 11") | 05/15/2019 8:21 PM | | | | | PDT | | + + + + + | Body Mass Index | 32.07 | 05/15/2019 8:21 PM | | | [...] documented as of this encounter Discharge Summaries Keisha Ahn MD - 05/18/2019 1:[address] [facility] Service: Hospitalist Discharge Summary Date of Admission: 05/15/2019 Date of Discharge: 05/18/2019 Discharge Provider: Keisha Ahn MD Consults: none Discharge Diagnoses: Principal Problem: Fall from ground level Active Problems: Diabetes mellitus, type 2 HTN (hypertension) Paroxysmal atrial fibrillation COPD (chronic obstructive pulmonary disease) WARD (obstructive sleep apnea) HOSPITAL COURSE: 61 y.o.malewith a significant past medical history of developmental delay, anxiety/depr ession, paroxysmal atrial fibrillation,diabetes mellitus type 2 with recurrent admission f or hyperglycemia, COPD not on oxygen, WARD, TIA, HTN, HLD, recurrent falls with peripheral neuropathy, history of DVT/pulmonary embolism on 10/24 lives at home and uses cane who presen tasia after a fall after he tripped resulting in large right knee hematoma. In the ED, vitals were stable. Labs showed stable hb. Knee x-ray was done with showed soft tissue swelling of right knee and right knee effusion, CT right knee showed soft tissue hematoma. CT head showe d not acute process. Pelvic x-ray showed old healed fracture deformities of the pelvis. ED ashley vora discussed with orthopedic who recommended conservative management with DAHIANA and yaquelin jessica AC unless hematoma expands. Patient was admitted for pain control. He worked with PT bernadette mcgrath recommended SNF and patient discharged to [facility]. Hemoglobin remained stable on d ischarge. For his type II DM, patient had multiple ED visits for hyperglycemia recently likely due to dietary indiscretion. 2 weeks prior to admission mealtime insulin increased to 15 units, cleopatra prabhakar continued on home dose of Levemir on discharge. a1c was 9.4 DISCHARGE EXAM Vital Signs: Vitals with Comments 05/18/2019 05/18/2019 05/18/2019 05/18/2019 SYSTOLIC 103 124 151 129 DIASTOLIC 61 58 72 70 BP Comments - - - - Pulse 60 64 - 69 Temp 98.2 98.2 - - Resp 18 18 - 18 Weight - - - - Height - - - - SPO2 96 95 - 98 BMI - - - - Pain Score - - - - Pain Loc - - - - Gen: AOX3. NAD HEENT: NCAT CV: RRR. S1S2 normal. no murmer, rubs, or gallops. No JVD Chest: CTA b/l Abd: SNTND. BS+, no gaurding or ridigity Ext: No edema of right leg, left leg wrapped. 2+ DP Neuro: Motor/sensations intact. 2+ DTRs DATA Recent Results (from the past 24 hour(s)) POC Glucose Result Value Ref Range Glucose, POC 157 (H) 65 - 99 mg/dL POC Glucose Result Value Ref Range Glucose, POC 199 (H) 65 - 99 mg/dL CBC no Differential Result Value Ref Range WBC 10.82 3.80 - 11.00 K/uL RBC 4.01 (L) 4.20 - 5.70 M/uL Hemoglobin 11.4 (L) 13.2 - 17.0 g/dL Hematocrit 34.1 (L) 39.0 - 50.0 % MCV 85.0 80.0 - 100.0 fl MCH 28.4 27.0 - 34.0 pg MCHC 33.4 32.0 - 35.5 g/dL RDW-SD 41.7 37 - 53 fl Platelet Count 207 150 - 400 K/uL MPV 10.1 fl POC Glucose Result Value Ref Range Glucose, POC 165 (H) 65 - 99 mg/dL POC Glucose Result Value Ref Range Glucose, POC 181 (H) 65 - 99 mg/dL Xr Knee Right 1 - 2 Vw Result Date: 05/15/2019 PELVIS ONE OR TWO VIEWS; RIGHT KNEE ONE OR TWO VIEWS CLINICAL INFORMATION: Right leg pain a fter Fall. Right leg deformity. COMPARISON: XR ABDOMEN SUPINE AND UPRIGHT WITH 1 VW CHEST (1 ); CT ABDOMEN PELVIS W CONTRAST (02/25/2016); FINDINGS: Pelvis: Normal osseous cigar packing examiner alization. Subtle contour abnormalities of the pelvis in the region of the right superior i nferior pubic rami, unchanged from CT scan of 2017, compatible with old healed fractures. Th e femoral head and neck regions appear intact. Right knee: L-shaped metal fixation plate and multiple anchoring screws overlies the lateral aspect of the proximal tibia metadiaphysis. Metallic fixation hardware appears intact. No acute fracture or dislocation. Prominent pre patellar soft tissue swelling noted. There is distention of the suprapatellar bursa, compat ible with knee joint effusion. 1. Old healed fracture deformities of the pelvis. No acute pelvic or proximal femur fractu re identified. 2. Prominent prepatellar soft tissue swelling of the right knee. No acute fr acture or dislocation. 3. Right knee joint effusion. Signed by: Irina Man, Jose Sign Date/ Time: 05/15/2019 8:[address] Head Wo Contrast Result Date: 05/16/2019 CT HEAD WITHOUT CONTRAST CLINICAL INFORMATION: Headache after a fall. COMPARISON: CT HEAD W O CONTRAST (01/25/2019); MRI ANGIOGRAM HEAD WO CONTRAST (01/04/2019); MRI BRAIN WO CONTRAST (01/04/2019); PROCEDURE: Axial images were obtained through the head without IV contrast. Mu ltiplanar reformations were obtained from the acquisition data. At least one of the followin g CT dose optimization techniques were used: Automated exposure control; Adjustment of mA an d/or kV according to patient size; Use of iterative reconstruction technique. FINDINGS: Brai n: No intracranial hemorrhage, midline shift or pathologic mass effect. No cerebral edema, m ass lesion, or evidence of acute infarct. Mild generalized cerebral volume loss, unchanged. Ventricles and extra-axial fluid spaces: Normal. Paranasal sinuses and mastoid air cells: Pa tchy opacification of several ethmoid air cells bilaterally and the left frontal sinus. Mast oid air cells normal. Calvarium and extracranial soft tissues: Right forehead small contusio n. No underlying calvarial fracture. Orbits: Imaged portions of the orbits are normal. 1. No acute intracranial pathology. 2. Small right forehead scalp contusion. No underlying fracture. Signed by: Irina Ji James Sign Date/Time: 05/16/2019 2:15 AM Xr Chest Ap Portable Result Date: 05/15/2019 CHEST PORTABLE ONE VIEW CLINICAL INFORMATION: Fall. Right leg pain after Fall. Right leg d eformity. COMPARISON: XR CHEST PA AND LATERAL (04/13/2019); XR CHEST PA AND LATERAL (04/04/2019 ); XR CHEST PA AND LATERAL (03/21/2019); FINDINGS: Supine AP portable chest 05/15/2019 at 2017 hours. The lungs are symmetrically expanded. No evidence of pneumothorax, pleural effusion, or focus of airspace consolidation. The heart and mediastinal contours and pulmonary vesse ls are normal. Osseous structures appear intact. Negative portable chest. Signed by: Irina Man Brian Sign Date/Time: 05/15/2019 8:47 PM Xr Pelvis 1 Or 2 Vw Result Date: 05/15/2019 PELVIS ONE OR TWO VIEWS; RIGHT KNEE ONE OR TWO VIEWS CLINICAL INFORMATION: Right leg pain a fter Fall. Right leg deformity. COMPARISON: XR ABDOMEN SUPINE AND UPRIGHT WITH 1 VW CHEST (1 ); CT ABDOMEN PELVIS W CONTRAST (02/25/2016); FINDINGS: Pelvis: Normal osseous cigar packing examiner alization. Subtle contour abnormalities of the pelvis in the region of the right superior i nferior pubic rami, unchanged from CT scan of 2017, compatible with old healed fractures. Th e femoral head and neck regions appear intact. Right knee: L-shaped metal fixation plate and multiple anchoring screws overlies the lateral aspect of the proximal tibia metadiaphysis. Metallic fixation hardware appears intact. No acute fracture or dislocation. Prominent pre patellar soft tissue swelling noted. There is distention of the suprapatellar bursa, compat ible with knee joint effusion. 1. Old healed fracture deformities of the pelvis. No acute pelvic or proximal femur fractu re identified. 2. Prominent prepatellar soft tissue swelling of the right knee. No acute fr acture or dislocation. 3. Right knee joint effusion. Signed by: Irina Man Brian Sign Date/ Time: 05/15/2019 8:[address] Knee Right Wo Contrast Result Date: 05/15/2019 CT LOWER EXTREMITY; WITHOUT CONTRAST (CPT) CT RIGHT KNEE CLINICAL INFORMATION: Right knee t rauma/pain after a fall. COMPARISON: Right knee x-rays 05/15/2019. PROCEDURE: Volume CT acquis ition with multiplanar reconstructions. 3-D reformations created on a separate workstation. At least one of the following CT dose optimization techniques were used: Automated exposure control; Adjustment of mA and/or kV according to patient size; Use of iterative reconstructi on technique. FINDINGS: 1. Distal Femur: Intact. A large curvilinear ossification is densit y is seen at the origin of the medial collateral ligament of the knee. 2. Patella: Intact. 3 . Proximal Tibia/Fibula: No acute fracture. Lateral metallic fixation plate and multiple an choring screws seen at the proximal tibia metadiaphysis. 4. Joint Space: No knee joint effus ion. 5. Soft Tissue: A large ovoid hematoma is seen in the superficial soft tissues overlyin g the anteromedial aspect of the distal thigh, centered above the knee joint level, measurin g approximately 8.7 x 4.8 x 4.6 cm (coronal image 26 series 9 and sagittal image 52 series 1 0). Sagittal reformat views show fluid-fluid level within the hematoma (sagittal image 50-5 3, series 10). Prepatellar soft tissue swelling/edema is also seen with reticulation of the subcutaneous fat layer. Calcific atherosclerotic plaque seen within the femoral artery and trifurcation region. 1. No acute fracture of the distal femur or proximal tibia/fibula. 2. Large ovoid superfici al soft tissue hematoma overlying the anteromedial aspect of the distal thigh, centered abov e the knee joint, with estimated volume of 100 cc. 3. Prepatellar soft tissue swelling/edema . 4. Atherosclerotic vascular disease. Signed by: Irina Man Brian Sign Date/Time: 05/15/19 9:53 PM [facility] Condition: Stable Code Status: Full Code No discharge procedures on file. Follow up: [facility] [address] [facility] [id number] Discharge took 35 minutes, to include final examination, discussion of admission, and prepa ration of prescriptions, instructions for on-going care, follow-up and documentation of disc harge summary. Discharge Medications New Medications Details HYDROcodone-acetaminophen 5-325 mg per tablet Take 1-2 tablets by mouth every 4 hours as needed for up to 10 days. aka: NORCO insulin lispro 100 units/mL injection (pen) Replaces: insulin aspart 100 units/mL injection pen Inject 15 Units under the skin 3 times daily (with meals). aka: humaLOG KWIKPEN melatonin 3 mg Tabs Take 1 tablet by mouth nightly as needed for Insomnia. polyethylene glycol packet Take 1 diluted packet by mouth Daily as needed for Constipation for up to 10 days. aka: MIRALAX Unchanged Medications Details accu-chek multiclix Misc 1 each by Other route 4 times daily. acetaminophen 325 mg tablet Take 2 tablets by mouth every 4 hours as needed for Pain (or fever >= 38.6 C (101.5 F)). aka: TYLENOL apixaban 5 mg tablet Take 1 tablet by mouth 2 times daily. aka: ELIQUIS ARIPiprazole 5 mg tablet Take 1 tablet by mouth Daily. aka: ABILIFY atorvaSTATin 40 mg tablet Take 1 tablet by mouth nightly. aka: Deep DriverITOR Blood Glucose Monitor System w/Device Kit Dispense brand per patient preference BLOOD GLUCOSE TEST STRIPS Strp For blood sugar testing 4 times daily budesonide-formoterol 160-4.5 mcg/puff inhaler Inhale 2 puffs into the lungs 2 times daily. aka: SYMBICORT carvedilol 12.5 mg tablet Take 1 tablet by mouth 2 times daily (with breakfast & dinner). aka: COREG finasteride 5 mg tablet Take 1 tablet by mouth Daily. aka: PROSCAR hydrALAZINE 25 mg tablet Take 1 tablet by mouth 2 times daily. aka: APRESOLINE insulin detemir 100 units/mL injection (pen) Inject 45 Units under the skin nightly. aka: LEVEMIR FLEXTOUCH Insulin Pen Needle 32G X 4 MM Misc For insulin administration 4 times daily aka: BD PEN NEEDLE KYAW U/F lisinopril 40 MG tablet Take 1 tablet by mouth Daily. aka: PRINIVIL,ZESTRIL meclizine 25 mg tablet Take 1 tablet by mouth 3 times daily as needed. aka: ANTIVERT metFORMIN 500 mg tablet Take 1 tablet by mouth 2 times daily (with breakfast & dinner). aka: GLUCOPHAGE NIFEdipine 60 MG 24 hr tablet Take 1 tablet by mouth Daily. aka: ADALAT CC omeprazole 20 mg capsule Take 1 capsule by mouth every morning (before breakfast). aka: priLOSEC tamsulosin 0.4 mg Caps Take 1 capsule by mouth 2 times daily. aka: FLOMAX Discontinued Medications aspirin 81 MG tablet insulin aspart 100 units/mL injection pen aka: NOVOLOG FLEXPEN Replaced by: insulin lispro 100 units/mL injection (pen) Keisha Ahn MD 05/18/2019 1:01 PM documented in this enc ounter Medications at Time of Discharge + + [...] | | | | use of insulin ([facility]) | | | | | | + [...] | | Take 1-2 tablets by | 30 | 0 | 05/18/19 | | | HYDROcodone-acetamin | mouth every 4 hours | tablet | | 20 | 0 | | ophen (NORCO) 5-325 | as needed for up to | | | | | | mg per tablet | 10 days. | | | | | + + + +---------+ + + | insulin detemir | Inject 45 Units | 12 mL | 0 | 05/18/19 | | | (LEVEMIR FLEXTOUCH) | under the skin | | | 20 | 0 | | 100 units/mL | nightly. | | | | | | injection (pen) | | | | | | + + + +---------+ + + | insulin lispro | Inject 15 Units | | 0 | 05/18/19 | | | (HUMALOG KWIKPEN) | under the skin 3 | | | 20 | 0 | | 100 units/mL | times daily (with | | | | | | injection (pen) | meals). | | | | | + + [...] +---------+ + + | polyethylene | Take 1 diluted | 12 each | 0 | 05/18/19 | | | glycol (MIRALAX) | packet by mouth | | | 20 | 0 | | packet | Daily as needed for | | | | | | | Constipation for up | | | | | | | to 10 days. | | | | | + + + +---------+ + + | tamsulosin | Take 1 capsule by | 60 | 4 | 11/08/19 | | | (FLOMAX) 0.4 mg CAPS | mouth 2 times daily. | capsule | | 19 | 0 | + + + +---------+ + + documented as of this encounter Progress Notes Keisha Ahn MD - 05/17/2019 9:[address] [facility] Service: Hospitalist Progress Note Hospital Day: LOS: 0 days Post-Op Day: * No surgery found * SUBJECTIVE Patient Summary: 61 y.o.malewith a significant past medical history of developmental d elay, anxiety/depression, paroxysmal atrial fibrillation,diabetes mellitus type 2 with rec urrent admission for hyperglycemia, COPD not on oxygen, WARD, TIA, HTN, HLD, recurrent falls with peripheral neuropathy, history of DVT/pulmonary embolism on 10/24 liver at home and use s cane who presented after a fall after he tripped resulting in large left knee hematoma. Events Overnight: Patient denies pain except for movement, but states if he keeps moving t he pain worsens. Also has left elbow wound. Scheduled Medications apixaban 5 mg Oral BID ARIPiprazole 5 mg Oral Daily atorvaSTATin 40 mg Oral Nightly budesonide-formoterol 2 puff Inhalation BID carvedilol 12.5 mg Oral BID WC finasteride 5 mg Oral Daily hydrALAZINE 25 mg Oral BID ibuprofen 400 mg Oral TID WC insulin detemir 45 Units Subcutaneous Nightly insulin lispro 0-12 Units Subcutaneous 4x Daily WC and HS insulin lispro 15 Units Subcutaneous TID WC lisinopril 40 mg Oral Daily NIFEdipine 60 mg Oral Daily pantoprazole 40 mg Oral BID AC tamsulosin 0.4 mg Oral BID Continuous Infusions dextrose 10% PRN Medications acetaminophen, albuterol-ipratropium, Hypoglycemia Management AND POCT Glucose AND dextrose AND dextrose 10%, HYDROcodone-acetaminophen, melatonin, morphine, ondansetron, polyethylene glycol OBJECTIVE Vital Signs: BP 116/62 | Pulse 88 | Temp 36.7 C (98 F) (Oral) | Resp 20 | Ht 1.803 m (5' 11") | Wt 100.5 kg (221 lb 9 oz) | SpO2 98% | BMI 30.90 kg/m Gen: AOX3. NAD HEENT: NCAT CV: RRR. S1S2 normal. no murmer, rubs, or gallops. No JVD Chest: CTA b/l Abd: SNTND. BS+, no gaurding or ridigity Ext: No edema of right leg, left leg wrapped. 2+ DP Neuro: Motor/sensations intact. 2+ DTRs DATA Recent Results (from the past 24 hour(s)) POC Glucose Result Value Ref Range Glucose, POC 190 (H) 65 - 99 mg/dL POC Glucose Result Value Ref Range Glucose, POC 212 (H) 65 - 99 mg/dL POC Glucose Result Value Ref Range Glucose, POC 173 (H) 65 - 99 mg/dL Hemoglobin A1C Result Value Ref Range Hemoglobin A1c 9.3 (H) 4.0 - 6.0 % Estimated Average Glucose 220 (H) <154 mg/dL CBC no Differential Result Value Ref Range WBC 12.48 (H) 3.80 - 11.00 K/uL RBC 4.40 4.20 - 5.70 M/uL Hemoglobin 12.4 (L) 13.2 - 17.0 g/dL Hematocrit 37.0 (L) 39.0 - 50.0 % MCV 84.1 80.0 - 100.0 fl MCH 28.2 27.0 - 34.0 pg MCHC 33.5 32.0 - 35.5 g/dL RDW-SD 40.5 37 - 53 fl Platelet Count 240 150 - 400 K/uL MPV 9.8 fl POC Glucose Result Value Ref Range Glucose, POC 266 (H) 65 - 99 mg/dL Imaging Xr Knee Right 1 - 2 Vw Result Date: 05/15/2019 PELVIS ONE OR TWO VIEWS; RIGHT KNEE ONE OR TWO VIEWS CLINICAL INFORMATION: Right leg pain a fter Fall. Right leg deformity. COMPARISON: XR ABDOMEN SUPINE AND UPRIGHT WITH 1 VW CHEST (); CT ABDOMEN PELVIS W CONTRAST (02/25/2016); FINDINGS: Pelvis: Normal osseous cigar packing examiner alization. Subtle contour abnormalities of the pelvis in the region of the right superior i nferior pubic rami, unchanged from CT scan of 2017, compatible with old healed fractures. Th e femoral head and neck regions appear intact. Right knee: L-shaped metal fixation plate and multiple anchoring screws overlies the lateral aspect of the proximal tibia metadiaphysis. Metallic fixation hardware appears intact. No acute fracture or dislocation. Prominent pre patellar soft tissue swelling noted. There is distention of the suprapatellar bursa, compat ible with knee joint effusion. 1. Old healed fracture deformities of the pelvis. No acute pelvic or proximal femur fractu re identified. 2. Prominent prepatellar soft tissue swelling of the right knee. No acute fr acture or dislocation. 3. Right knee joint effusion. Signed by: Irina Man Brian Sign Date/ Time: 05/15/2019 8:[address] Head Wo Contrast Result Date: 05/16/2019 CT HEAD WITHOUT CONTRAST CLINICAL INFORMATION: Headache after a fall. COMPARISON: CT HEAD W O CONTRAST (01/25/2019); MRI ANGIOGRAM HEAD WO CONTRAST (01/04/2019); MRI BRAIN WO CONTRAST (01/04/2019); PROCEDURE: Axial images were obtained through the head without IV contrast. Mu ltiplanar reformations were obtained from the acquisition data. At least one of the followin g CT dose optimization techniques were used: Automated exposure control; Adjustment of mA an d/or kV according to patient size; Use of iterative reconstruction technique. FINDINGS: Brai n: No intracranial hemorrhage, midline shift or pathologic mass effect. No cerebral edema, m ass lesion, or evidence of acute infarct. Mild generalized cerebral volume loss, unchanged. Ventricles and extra-axial fluid spaces: Normal. Paranasal sinuses and mastoid air cells: Pa tchy opacification of several ethmoid air cells bilaterally and the left frontal sinus. Mast oid air cells normal. Calvarium and extracranial soft tissues: Right forehead small contusio n. No underlying calvarial fracture. Orbits: Imaged portions of the orbits are normal. 1. No acute intracranial pathology. 2. Small right forehead scalp contusion. No underlying fracture. Signed by: Irina Ji James Sign Date/Time: 05/16/2019 2:15 AM Xr Chest Ap Portable Result Date: 05/15/2019 CHEST PORTABLE ONE VIEW CLINICAL INFORMATION: Fall. Right leg pain after Fall. Right leg d eformity. COMPARISON: XR CHEST PA AND LATERAL (04/13/2019); XR CHEST PA AND LATERAL (04/04/2019 ); XR CHEST PA AND LATERAL (03/21/2019); FINDINGS: Supine AP portable chest 05/15/2019 at 2017 hours. The lungs are symmetrically expanded. No evidence of pneumothorax, pleural effusion, or focus of airspace consolidation. The heart and mediastinal contours and pulmonary vesse ls are normal. Osseous structures appear intact. Negative portable chest. Signed by: Irina Man Brian Sign Date/Time: 05/15/2019 8:47 PM Xr Pelvis 1 Or 2 Vw Result Date: 05/15/2019 PELVIS ONE OR TWO VIEWS; RIGHT KNEE ONE OR TWO VIEWS CLINICAL INFORMATION: Right leg pain a fter Fall. Right leg deformity. COMPARISON: XR ABDOMEN SUPINE AND UPRIGHT WITH 1 VW CHEST (1 ); CT ABDOMEN PELVIS W CONTRAST (02/25/2016); FINDINGS: Pelvis: Normal osseous cigar packing examiner alization. Subtle contour abnormalities of the pelvis in the region of the right superior i nferior pubic rami, unchanged from CT scan of 2017, compatible with old healed fractures. Th e femoral head and neck regions appear intact. Right knee: L-shaped metal fixation plate and multiple anchoring screws overlies the lateral aspect of the proximal tibia metadiaphysis. Metallic fixation hardware appears intact. No acute fracture or dislocation. Prominent pre patellar soft tissue swelling noted. There is distention of the suprapatellar bursa, compat ible with knee joint effusion. 1. Old healed fracture deformities of the pelvis. No acute pelvic or proximal femur fractu re identified. 2. Prominent prepatellar soft tissue swelling of the right knee. No acute fr acture or dislocation. 3. Right knee joint effusion. Signed by: Irina Man Brian Sign Date/ Time: 05/15/2019 8:[address] Knee Right Wo Contrast Result Date: 05/15/2019 CT LOWER EXTREMITY; WITHOUT CONTRAST (CPT) CT RIGHT KNEE CLINICAL INFORMATION: Right knee t rauma/pain after a fall. COMPARISON: Right knee x-rays 05/15/2019. PROCEDURE: Volume CT acquis ition with multiplanar reconstructions. 3-D reformations created on a separate workstation. At least one of the following CT dose optimization techniques were used: Automated exposure control; Adjustment of mA and/or kV according to patient size; Use of iterative reconstructi on technique. FINDINGS: 1. Distal Femur: Intact. A large curvilinear ossification is densit y is seen at the origin of the medial collateral ligament of the knee. 2. Patella: Intact. 3 . Proximal Tibia/Fibula: No acute fracture. Lateral metallic fixation plate and multiple an choring screws seen at the proximal tibia metadiaphysis. 4. Joint Space: No knee joint effus ion. 5. Soft Tissue: A large ovoid hematoma is seen in the superficial soft tissues overlyin g the anteromedial aspect of the distal thigh, centered above the knee joint level, measurin g approximately 8.7 x 4.8 x 4.6 cm (coronal image 26 series 9 and sagittal image 52 series 1 0). Sagittal reformat views show fluid-fluid level within the hematoma (sagittal image 50-5 3, series 10). Prepatellar soft tissue swelling/edema is also seen with reticulation of the subcutaneous fat layer. Calcific atherosclerotic plaque seen within the femoral artery and trifurcation region. 1. No acute fracture of the distal femur or proximal tibia/fibula. 2. Large ovoid superfici al soft tissue hematoma overlying the anteromedial aspect of the distal thigh, centered abov e the knee joint, with estimated volume of 100 cc. 3. Prepatellar soft tissue swelling/edema . 4. Atherosclerotic vascular disease. Signed by: Irina Man, Jose Sign Date/Time: 05/15/19 9:53 PM PROBLEM LIST Principal Problem: Fall from ground level Active Problems: Diabetes mellitus, type 2 HTN (hypertension) Paroxysmal atrial fibrillation COPD (chronic obstructive pulmonary disease) WARD (obstructive sleep apnea) ASSESSMENT & PLAN Large left hematoma: 2/2 fall in the setting of Eliquis. Ordered PT/OT, recommend SNF, awai t placement. Continue eliquis unless hematoma expands. A-fib: rate controlled. continue coreg and apixiban for now unless hb worsens or hematoma. Monitor on telemetry. WARD/Obesity: continue CPAP Hyperlipidemia: continue statin, also on fenofibrate. TIA: continue eliquis, statin. COPD: stable, continue home INH. Developmental delay/Anxiety/depression: stable, continue abilify. Hypertension: elevated on admission, but improved now. Continue home anti-hypertensives and monitor. Pulmonary embolism: in 10/24. Continue eliquis. Uncontrolled type 2 diabetes mellitus: patient with multiple ED visits for hyperglycemia re cently likely due to dietary indiscretion. 2 weeks ago mealtime insulin increased to 15 unit s,. Will increase levemir to 50 units and continue SSI, monitor BS, a1c 9.4 Disposition: inpatient Code Status: Full Code Keisha Ahn MD 05/17/2019 Keisah Melara MD - 0 05/16/2019 10:[address] [facility] Service: Hospitalist Progress Note Hospital Day: LOS: 0 days Post-Op Day: * No surgery found * SUBJECTIVE Patient Summary: 61 y.o.malewith a significant past medical history of developmental d elay, anxiety/depression, paroxysmal atrial fibrillation,diabetes mellitus type 2 with rec urrent admission for hyperglycemia, COPD not on oxygen, WARD, TIA, HTN, HLD, recurrent falls with peripheral neuropathy, history of DVT/pulmonary embolism on 10/24 liver at home and use s cane who presented after a fall after he tripped resulting in large left knee hematoma. Events Overnight: Patient denies pain except for movement, but states if he keeps moving t he pain worsens. Also has left elbow wound. Scheduled Medications apixaban 5 mg Oral BID ARIPiprazole 5 mg Oral Daily atorvaSTATin 40 mg Oral Nightly budesonide-formoterol 2 puff Inhalation BID carvedilol 12.5 mg Oral BID WC finasteride 5 mg Oral Daily hydrALAZINE 25 mg Oral BID ibuprofen 400 mg Oral TID WC insulin detemir 45 Units Subcutaneous Nightly insulin lispro 0-12 Units Subcutaneous 4x Daily WC and HS insulin lispro 10 Units Subcutaneous TID WC lisinopril 40 mg Oral Daily NIFEdipine 60 mg Oral Daily pantoprazole 40 mg Oral BID AC tamsulosin 0.4 mg Oral BID Continuous Infusions dextrose 10% PRN Medications acetaminophen, albuterol-ipratropium, Hypoglycemia Management AND POCT Glucose AND dextrose AND dextrose 10%, HYDROcodone-acetaminophen, melatonin, morphine, ondansetron, polyethylene glycol OBJECTIVE Vital Signs: BP 121/62 | Pulse 72 | Temp 36.9 C (98.4 F) | Resp 18 | Ht 1.803 m (5' 11") | Wt 1 00.5 kg (221 lb 9 oz) | SpO2 96% | BMI 30.90 kg/m Gen: AOX3. NAD HEENT: NCAT CV: RRR. S1S2 normal. no murmer, rubs, or gallops. No JVD Chest: CTA b/l Abd: SNTND. BS+, no gaurding or ridigity Ext: No edema of right leg, left leg wrapped. 2+ DP Neuro: Motor/sensations intact. 2+ DTRs DATA Recent Results (from the past 24 hour(s)) POC Glucose Result Value Ref Range Glucose, POC 283 (H) 65 - 99 mg/dL CBC with Differential Result Value Ref Range WBC 12.85 (H) 3.80 - 11.00 K/uL RBC 4.67 4.20 - 5.70 M/uL Hemoglobin 13.0 (L) 13.2 - 17.0 g/dL Hematocrit 39.1 39.0 - 50.0 % MCV 83.7 80.0 - 100.0 fl MCH 27.8 27.0 - 34.0 pg MCHC 33.2 32.0 - 35.5 g/dL RDW-SD 39.8 37 - 53 fl Platelet Count 231 150 - 400 K/uL MPV 9.7 fl Diff Type AUTOMATED % nRBC 0.0 0 /100WBC % Neutrophils 57.80 % IMMATURE GRANULOCYTE 0.50 % % Lymphocytes 25.20 % Monocyte % 10.00 % Eosinophils % 6.10 % Basophils % 0.40 % Neutrophils, Absolute 7.41 (H) 1.90 - 7.40 K/uL IMMATURE GRANS AB 0.07 0.00 - 0.07 K/uL Absolute Lymphocytes 3.24 1.00 - 3.90 K/uL Absolute Monocytes 1.29 (H) 0.00 - 0.80 K/uL Eosinophils, Absolute 0.79 (H) 0.00 - 0.50 K/uL Basophils, Absolute 0.05 0.00 - 0.10 K/uL Comprehensive Metabolic Panel Result Value Ref Range Na 139 135 - 145 mmol/L K 4.1 3.5 - 4.9 mmol/L Cl 107 99 - 109 mmol/L CO2 26 23 - 32 mmol/L Anion Gap 10 5 - 20 mmol/L Glucose 294 (H) 65 - 99 mg/dL BUN 19 8 - 25 mg/dL Creatinine 0.9 0.70 - 1.30 mg/dL BUN/Creatinine Ratio 21 Calcium 9.2 8.5 - 10.5 mg/dL Protein, Total 6.1 (L) 6.3 - 8.2 g/dL Albumin 2.5 (L) 3.3 - 4.8 g/dL Globulin 3.6 1.3 - 4.9 g/dL A/G Ratio 0.7 (L) 1.0 - 2.4 BILIRUBIN, TOTAL 0.4 0.1 - 1.5 mg/dL ALK PHOS 129 (H) 35 - 115 U/L AST 20 10 - 45 U/L ALT 24 10 - 65 U/L Estimated GFR >60 >60 mL/min/1.73m2 Magnesium Result Value Ref Range Magnesium 1.8 1.7 - 2.4 mg/dL POC Glucose Result Value Ref Range Glucose, POC 251 (H) 65 - 99 mg/dL POC Glucose Result Value Ref Range Glucose, POC 190 (H) 65 - 99 mg/dL POC Glucose Result Value Ref Range Glucose, POC 212 (H) 65 - 99 mg/dL POC Glucose Result Value Ref Range Glucose, POC 173 (H) 65 - 99 mg/dL Imaging Xr Knee Right 1 - 2 Vw Result Date: 05/15/2019 PELVIS ONE OR TWO VIEWS; RIGHT KNEE ONE OR TWO VIEWS CLINICAL INFORMATION: Right leg pain a fter Fall. Right leg deformity. COMPARISON: XR ABDOMEN SUPINE AND UPRIGHT WITH 1 VW CHEST (); CT ABDOMEN PELVIS W CONTRAST (02/25/2016); FINDINGS: Pelvis: Normal osseous cigar packing examiner alization. Subtle contour abnormalities of the pelvis in the region of the right superior i nferior pubic rami, unchanged from CT scan of 2017, compatible with old healed fractures. Th e femoral head and neck regions appear intact. Right knee: L-shaped metal fixation plate and multiple anchoring screws overlies the lateral aspect of the proximal tibia metadiaphysis. Metallic fixation hardware appears intact. No acute fracture or dislocation. Prominent pre patellar soft tissue swelling noted. There is distention of the suprapatellar bursa, compat ible with knee joint effusion. 1. Old healed fracture deformities of the pelvis. No acute pelvic or proximal femur fractu re identified. 2. Prominent prepatellar soft tissue swelling of the right knee. No acute fr acture or dislocation. 3. Right knee joint effusion. Signed by: Irina Man Brian Sign Date/ Time: 05/15/2019 8:[address] Head Wo Contrast Result Date: 05/16/2019 CT HEAD WITHOUT CONTRAST CLINICAL INFORMATION: Headache after a fall. COMPARISON: CT HEAD W O CONTRAST (01/25/2019); MRI ANGIOGRAM HEAD WO CONTRAST (01/04/2019); MRI BRAIN WO CONTRAST (01/04/2019); PROCEDURE: Axial images were obtained through the head without IV contrast. Mu ltiplanar reformations were obtained from the acquisition data. At least one of the followin g CT dose optimization techniques were used: Automated exposure control; Adjustment of mA an d/or kV according to patient size; Use of iterative reconstruction technique. FINDINGS: Brai n: No intracranial hemorrhage, midline shift or pathologic mass effect. No cerebral edema, m ass lesion, or evidence of acute infarct. Mild generalized cerebral volume loss, unchanged. Ventricles and extra-axial fluid spaces: Normal. Paranasal sinuses and mastoid air cells: Pa tchy opacification of several ethmoid air cells bilaterally and the left frontal sinus. Mast oid air cells normal. Calvarium and extracranial soft tissues: Right forehead small contusio n. No underlying calvarial fracture. Orbits: Imaged portions of the orbits are normal. 1. No acute intracranial pathology. 2. Small right forehead scalp contusion. No underlying fracture. Signed by: Irina Ji James Sign Date/Time: 05/16/2019 2:15 AM Xr Chest Ap Portable Result Date: 05/15/2019 CHEST PORTABLE ONE VIEW CLINICAL INFORMATION: Fall. Right leg pain after Fall. Right leg d eformity. COMPARISON: XR CHEST PA AND LATERAL (04/13/2019); XR CHEST PA AND LATERAL (04/04/2019 ); XR CHEST PA AND LATERAL (03/21/2019); FINDINGS: Supine AP portable chest 05/15/2019 at 2017 hours. The lungs are symmetrically expanded. No evidence of pneumothorax, pleural effusion, or focus of airspace consolidation. The heart and mediastinal contours and pulmonary vesse ls are normal. Osseous structures appear intact. Negative portable chest. Signed by: Irina Man Brian Sign Date/Time: 05/15/2019 8:47 PM Xr Pelvis 1 Or 2 Vw Result Date: 05/15/2019 PELVIS ONE OR TWO VIEWS; RIGHT KNEE ONE OR TWO VIEWS CLINICAL INFORMATION: Right leg pain a fter Fall. Right leg deformity. COMPARISON: XR ABDOMEN SUPINE AND UPRIGHT WITH 1 VW CHEST (); CT ABDOMEN PELVIS W CONTRAST (02/25/2016); FINDINGS: Pelvis: Normal osseous cigar packing examiner alization. Subtle contour abnormalities of the pelvis in the region of the right superior i nferior pubic rami, unchanged from CT scan of 2017, compatible with old healed fractures. Th e femoral head and neck regions appear intact. Right knee: L-shaped metal fixation plate and multiple anchoring screws overlies the lateral aspect of the proximal tibia metadiaphysis. Metallic fixation hardware appears intact. No acute fracture or dislocation. Prominent pre patellar soft tissue swelling noted. There is distention of the suprapatellar bursa, compat ible with knee joint effusion. 1. Old healed fracture deformities of the pelvis. No acute pelvic or proximal femur fractu re identified. 2. Prominent prepatellar soft tissue swelling of the right knee. No acute fr acture or dislocation. 3. Right knee joint effusion. Signed by: Irina Man Brian Sign Date/ Time: 05/15/2019 8:[address] Knee Right Wo Contrast Result Date: 05/15/2019 CT LOWER EXTREMITY; WITHOUT CONTRAST (CPT) CT RIGHT KNEE CLINICAL INFORMATION: Right knee t rauma/pain after a fall. COMPARISON: Right knee x-rays 05/15/2019. PROCEDURE: Volume CT acquis ition with multiplanar reconstructions. 3-D reformations created on a separate workstation. At least one of the following CT dose optimization techniques were used: Automated exposure control; Adjustment of mA and/or kV according to patient size; Use of iterative reconstructi on technique. FINDINGS: 1. Distal Femur: Intact. A large curvilinear ossification is densit y is seen at the origin of the medial collateral ligament of the knee. 2. Patella: Intact. 3 . Proximal Tibia/Fibula: No acute fracture. Lateral metallic fixation plate and multiple an choring screws seen at the proximal tibia metadiaphysis. 4. Joint Space: No knee joint effus ion. 5. Soft Tissue: A large ovoid hematoma is seen in the superficial soft tissues overlyin g the anteromedial aspect of the distal thigh, centered above the knee joint level, measurin g approximately 8.7 x 4.8 x 4.6 cm (coronal image 26 series 9 and sagittal image 52 series 1 0). Sagittal reformat views show fluid-fluid level within the hematoma (sagittal image 50-5 3, series 10). Prepatellar soft tissue swelling/edema is also seen with reticulation of the subcutaneous fat layer. Calcific atherosclerotic plaque seen within the femoral artery and trifurcation region. 1. No acute fracture of the distal femur or proximal tibia/fibula. 2. Large ovoid superfici al soft tissue hematoma overlying the anteromedial aspect of the distal thigh, centered abov e the knee joint, with estimated volume of 100 cc. 3. Prepatellar soft tissue swelling/edema . 4. Atherosclerotic vascular disease. Signed by: Irina Man Brian Sign Date/Time: 05/15/19 9:53 PM PROBLEM LIST Principal Problem: Fall from ground level Active Problems: Diabetes mellitus, type 2 HTN (hypertension) Paroxysmal atrial fibrillation COPD (chronic obstructive pulmonary disease) WARD (obstructive sleep apnea) ASSESSMENT & PLAN Large left hematoma: 2/2 fall in the setting of Eliquis. Ordered PT/OT, recommend SNF, awai t placement. Continue eliquis unless hematoma expands. A-fib: rate controlled. continue coreg and apixiban for now unless hb worsens or hematoma. Monitor on telemetry. WARD/Obesity: continue CPAP Hyperlipidemia: continue statin, also on fenofibrate. TIA: continue eliquis, statin. COPD: stable, continue home INH. Developmental delay/Anxiety/depression: stable, continue abilify. Hypertension: elevated on admission, but improved now. Continue home anti-hypertensives and monitor. Pulmonary embolism: in 10/24. Continue eliquis. Uncontrolled type 2 diabetes mellitus: patient with multiple ED visits for hyperglycemia re cently likely due to dietary indiscretion. 2 weeks ago mealtime insulin increased to 15 unit s,. continue levemir and SSI, monitor BS, check a1c. Disposition: inpatient Code Status: Full Code Keisha Ahn MD 05/16/2019 Jennifer Truong RN - 05/16/2019 7:09 PM PDTPatient denies pain except for movement, but states if he keeps mo ving the pain decreases. No PRN pain medications given, available if needed. CMS checks intact. Patient uses urinal or ambulates to the toilet with SBA, voids qs, and calls appropriately. End of shift chart check complete. Willis Clark RN - 05/16/2019 12:19 AM PDTPt states he has tingling on R arm and R leg "like when I h ad my stroke" Neuro check otherwise benign, pt alert and oriented x4. MD notified, CT head a nd neuro checks ordered. Hold elequis until CT resulted. documented in this encounter H&P Notes Jorge Oviedo MD - 05/15/2019 10:23 PM PDTFormatting of this note might be diffe rent from the original. Patient Name: Norah Gr Date of Admission: 05/15/2019 Referring Provider: Dr Ramirez Reason for admission: Fall, knee hematoma, unable to ambulate Chief Complaint: Fall, knee pain HPI: Patient of a 63-year-old male with a significant past medical history of COPD on home oxyge n, atrial fibrillation on chronic anticoagulation therapy, DVT/PE, sleep apnea, diabetes, hy pertension, dyslipidemia, obesity, ischemic CVA/TIA who comes with fall and knee pain Patient refers that tonight when he went out to take out the trash, he tripped on the curve and fell forward, landing on his knee. After the fall, the patient was not able to stand u p and crawled back to his home. Patient denies any chest pain, dyspnea, lightheadedness/darryl r syncope or syncope prior to the event. Patient denies any head trauma or loss of consciou sness after the fall. No history of chest pain, dyspnea or palpitations after the event. H e denies any recent fever, chills or night sweats. No cough, sputum production. No history of abdominal pain, nausea, vomiting, diarrhea, hematemesis or hematochezia. In the emergency department, the patient has remained hemodynamically stable. Chest x-ray, CT of the knee were negative for fractures or dislocation. Positive large hematoma. ED trinidad lujan discussed the case with orthopedic surgery on-call who recommended conservative manag ement and follow-up as an outpatient. EKG shows sinus rhythm with sporadic PACs but no acut e ST changes. Of note, patient is on chronic Eliquis therapy due to A. fib and prior TIA is chemic CVAs. Also, he has a history of DVTs and PEs. Hospitalist service was consulted for further management PMH: Past Medical History: Diagnosis Date Acute pulmonary embolism (HCC) 10/14/2017 Anxiety ARF (acute renal failure) (HCC) 03/02/2013 Atrial fibrillation (HCC) Basal cell carcinoma 09/26/2012 arm and back COPD (chronic obstructive pulmonary disease) ([facility]) 03/02/2013 hypoxemia on 2 lts nc Depression Development delay Diabetes mellitus type II DVT (deep venous thrombosis) ([facility]) 03/29/2018 Facial droop 07/08/2013 GIB (gastrointestinal bleeding) 03/02/[address] Nur, rectal ulcers, nodule of GE junction Hypercholesterolemia 07/08/2013 Hyperlipidemia Hypertension care home (current) use of 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 Obesity, Class I, BMI 30-34.9 07/08/2013 WARD (obstructive sleep apnea) 08/11/2012 does not use CPAP because of the noise Other chronic pain Renal failure Stroke (HCC) TIA (transient ischemic attack) Unspecified visual disturbance reading glasses PSH: Past Surgical History: Procedure Laterality Date ABDOMEN SURGERY CHOLECYSTECTOMY CHOLECYSTECTOMY, LAPAROSCOPIC 09/12/2012 Procedure: LAPAROSCOPIC - CHOLECYSTECTOMY; Surgeon: Jevon Vargas DO; Location: [facility] MAIN OR; Service: General; Laterality: N/A; COLONOSCOPY COLONOSCOPY 03/04/2013 Procedure: COLONOSCOPY; Surgeon: Howie Gibson MD; Location: [facility] ENDOSCOPY; Service: Gastroen terology; Laterality: N/A; HERNIA REPAIR 07/03/2013 Procedure: LAPAROSCOPIC - HERNIA - INCISIONAL; Surgeon: Jevon Vargas DO; Location: [facility]; Service: General; Laterality: N/A; KNEE SURGERY rt knee, patella LEG SURGERY LLE OTHER SURGICAL HISTORY UNLISTED PROCEDURE ARTHROSCOPY OTHER SURGICAL HISTORY Left 05/05/2014 SKIN LESION EXCISION - Procedure: EXCISION - LESION - FROZEN SECTION; Surgeon: Sy murcia MD; Location: [facility] MAIN OR; Service: Plastics; Laterality: Left; forearm SKIN BIOPSY SKIN CANCER EXCISION Left 10/10/2012 Procedure: EXCISION - SKIN CANCER; Surgeon: Sy Fierro MD; Location: [facility] MAIN OR; Service: Plastics; Laterality: Left; upper arm and upper back w/frozen section UPPER GASTROINTESTINAL ENDOSCOPY UPPER GASTROINTESTINAL ENDOSCOPY 03/03/2013 Procedure: ESOPHAGOGASTRODUODENOSCOPY; Surgeon: Howie Gibson MD; Location: [facility] ENDOSCOPY; Se rvice: Gastroenterology; Laterality: N/A; Medications: No current facility-administered medications on file prior to encounter. Current Outpatient Medications on File Prior to Encounter Medication Sig Dispense Refill acetaminophen (TYLENOL) 325 mg tablet Take 2 tablets by mouth every 4 hours as needed f or Pain (or fever >= 38.6 C (101.5 F)). 30 tablet 1 apixaban (ELIQUIS) 5 mg tablet Take 1 tablet by mouth 2 times daily. 60 tablet 4 ARIPiprazole (ABILIFY) 5 mg tablet Take 1 tablet by mouth Daily. 30 tablet 4 aspirin 81 MG tablet Take 81 mg by mouth Daily as needed for Fever. atorvaSTATin (LIPITOR) 40 mg tablet Take 1 [...] mouth 2 times daily. 60 tablet 4 insulin aspart (NOVOLOG FLEXPEN) 100 units/mL injection pen Inject 10 Units under the s kin 3 times daily (before meals). Plus 5 units if > 300 insulin detemir (LEVEMIR FLEXTOUCH) 100 units/mL injection (pen) Inject 45 Units under the skin nightly. 12 mL 0 Insulin Pen Needle (BD PEN NEEDLE [...] daily as needed. 60 ta blet 0 metFORMIN (GLUCOPHAGE) 500 mg tablet Take 1 tablet by mouth 2 times daily (with breakfa st & dinner). 60 tablet 4 NIFEdipine (ADALAT CC) 60 MG 24 hr tablet Take 1 tablet by mouth Daily. 30 tablet 4 omeprazole (PRILOSEC) 20 mg capsule Take 1 capsule by mouth every morning (before break fast). 30 capsule 4 tamsulosin (FLOMAX) 0.4 mg CAPS Take 1 capsule by mouth 2 times daily. 60 capsule 4 Allergies: Allergies Allergen Reactions Nitroglycerin Swelling Tongue swelling Vitamin B12 Rash Rash FH: family history includes Diabetes, NIDDM in his sister; Heart disease in his father and sist er; Other (see comment) in his brother. SH: reports that he has never smoked. He has never used smokeless tobacco. He reports previous alcohol use. He reports that he does not use drugs. Review of Systems Constitutional: Positive for malaise/fatigue. Negative for chills and fever. HENT: Negative for congestion. Respiratory: Negative for cough, hemoptysis, sputum production and shortness of breath. Cardiovascular: Negative for chest pain, palpitations, orthopnea, claudication and leg swel ling. Gastrointestinal: Negative for abdominal pain, diarrhea, heartburn, nausea and vomiting. Genitourinary: Negative for dysuria and urgency. Musculoskeletal: Positive for joint pain. Negative for myalgias. Neurological: Negative for dizziness. Psychiatric/Behavioral: Negative for depression. Physical Exam: BP 135/62 | Pulse 73 | Temp 36.4 C (97.5 F) (Oral) | Resp 18 | Ht 1.803 m (5' 11") | Wt 95.3 kg (210 lb) | SpO2 98% | BMI 29.29 kg/m Physical Exam Constitutional: He is oriented to person, place, and time. He appears well-developed. HENT: Head: Normocephalic and atraumatic. Eyes: Pupils are equal, round, and reactive to light. No scleral icterus. Neck: Normal range of motion. No JVD present. Cardiovascular: Normal rate. Exam reveals no gallop and no friction rub. No murmur heard. Pulmonary/Chest: Effort normal. No respiratory distress. He has no wheezes. He has no rales . Abdominal: Soft. He exhibits no distension. There is no abdominal tenderness. There is no r ebound and no guarding. Musculoskeletal: General: No edema. Legs: Neurological: He is alert and oriented to person, place, and time. Labs: Recent Results (from the past 24 hour(s)) CBC with Differential Result Value Ref Range WBC 12.52 (H) 3.80 - 11.00 K/uL RBC 5.63 4.20 - 5.70 M/uL Hemoglobin 15.9 13.2 - 17.0 g/dL Hematocrit 46.7 39.0 - 50.0 % MCV 82.9 80.0 - 100.0 fl MCH 28.2 27.0 - 34.0 pg MCHC 34.0 32.0 - 35.5 g/dL RDW-SD 39.1 37 - 53 fl Platelet Count 257 150 - 400 K/uL MPV 9.3 fl Diff Type AUTOMATED % nRBC 0.0 0 /100WBC % Neutrophils 49.40 % IMMATURE GRANULOCYTE 0.70 % % Lymphocytes 31.90 % Monocyte % 8.80 % Eosinophils % 8.50 % Basophils % 0.70 % Neutrophils, Absolute 6.19 1.90 - 7.40 K/uL IMMATURE GRANS AB 0.09 (H) 0.00 - 0.07 K/uL Absolute Lymphocytes 3.99 (H) 1.00 - 3.90 K/uL Absolute Monocytes 1.10 (H) 0.00 - 0.80 K/uL Eosinophils, Absolute 1.06 (H) 0.00 - 0.50 K/uL Basophils, Absolute 0.09 0.00 - 0.10 K/uL Comprehensive Metabolic Panel Result Value Ref Range Na 139 135 - 145 mmol/L K 3.1 (L) 3.5 - 4.9 mmol/L Cl 103 99 - 109 mmol/L CO2 26 23 - 32 mmol/L Anion Gap 13 5 - 20 mmol/L Glucose 213 (H) 65 - 99 mg/dL BUN 13 8 - 25 mg/dL Creatinine 0.84 0.70 - 1.30 mg/dL BUN/Creatinine Ratio 15 Calcium 9.7 8.5 - 10.5 mg/dL Protein, Total 7.0 6.3 - 8.2 g/dL Albumin 4.1 3.3 - 4.8 g/dL Globulin 2.9 1.3 - 4.9 g/dL A/G Ratio 1.4 1.0 - 2.4 BILIRUBIN, TOTAL 0.5 0.1 - 1.5 mg/dL ALK PHOS 162 (H) 35 - 115 U/L AST 22 10 - 45 U/L ALT 22 10 - 65 U/L Estimated GFR >60 >60 mL/min/1.73m2 Protime INR Result Value Ref Range INR 0.9 PTT Result Value Ref Range PTT 26 23 - 32 seconds Troponin I Result Value Ref Range Troponin I 0.031 0.00 - 0.04 ng/mL Type and Screen Result Value Ref Range ABO Rh PENDING Antibody Screen PENDING BB BAND [id number] BB BAND Testing [place] [facility] [place] [place] [address];[place] [address] CK Total Result Value Ref Range CK TOTAL 68 55 - 400 U/L B Type Natriuretic Peptide Result Value Ref Range BNP 37.14 0 - 100 pg/mL Problem List: Active Problems: * No active hospital problems. * Impression Patient of a 63-year-old male with a significant past medical history of COPD on home oxyge n, atrial fibrillation on chronic anticoagulation therapy, DVT/PE, sleep apnea, diabetes, hy pertension, dyslipidemia, obesity, ischemic CVA/TIA who comes with fall and knee pain -CxR-no obvious consolidation -EKG-sinus rhythm, sporadic PACs, nonspecific T wave changes, no acute ST changes -X-ray pelvis-old healed fracture deformities of the pelvis. No acute pelvic or proximal f emur fracture identified. Prominent prepatellar soft tissue swelling of the right knee. No acute fracture or dislocation -CT knee right-no acute fracture of the distal femur or proximal tibia fibula. A large o void superficial soft tissue hematoma overlying the anteromedial aspect of the distal thigh. Prepatellar soft tissue swelling/edema. Assessment -Fall. Mechanical in etiology. History is not consistent with cardiac etiology, syncope/n ear syncope, or seizures. History is consistent with mechanical fall from multi-sensorial de ficit and musculoskeletal deconditioning. -Knee pain. Imaging consistent with large hematoma. ED provider already discussed the nicholas e with orthopedic surgery who recommended conservative management and follow-up as an outpat ient -Paroxysmal atrial fibrillation on chronic Eliquis therapy. Rate controlled -History of DVT and PE -COPD. No current signs of exacerbation -Obesity -Sleep apnea -Hypertension -Dyslipidemia -Diabetes Plan Admit to observation body and fender worker consult-placement. ? Benefit from SNF Rest, ice, NSAIDs leg elevation PT eval Regarding anticoagulation therapy, patient is at high risk for strokes, TIAs, DVT and PEs. At this point, we will continue Eliquis therapy but if no improvement with above conservati ve management, of patient right knee hematoma, will may need to consider holding anticoagula tion therapy NovoLog sliding scale Duo nebs PRN CPAP nightly PPI high dose Pain management Antiemetic therapy DVT GI prophylaxis CODE STATUS- Full code Jorge Lubin MD 05/15/19 docum ented in this encounter Consult Notes Shawna Canseco RN - 05/16/2019 3:09 PM PDTAssociated Order(s): IP CONSULT TO WOUND OSTO MY NURSE [facility] Service: Wound Care Consult Note Hospital Day: 0 SUBJECTIVE Patient Summary: Wound care consulted on traumatic elbow. Skin tear present. Patient' s knee was wrapped in kayleen wrap and partial cast upon entry to room. No wounds to toes or rosalba ls. Patient states he has not had foot care in a year since he was in rehab. May benefit [facility] podiatry due to diabetes. OBJECTIVE 05/16/19 1500 Wound 05/16/1957 Traumatic Right posterior elbow abrasion Placement Date/Time: 05/16/1957 Present on Hospital Admission: Yes Primary Wound Type : Traumatic Side: Right Orientation: posterior Location: elbow Wound Subtype: abrasion Wound WDL ex Base pink;moist;reddened Wound Base Comment Fragile skin tear Periwound Area redness Wound Length (cm) 6 cm Wound Width (cm) 1 cm Wound Depth (cm) 0.1 cm Wound Surface Area (cm^2) 6 cm^2 Wound Volume (cm^3) 0.6 cm^3 Drainage Characteristics/Odor serosanguineous Drainage Amount small Wound Cleaning cleansed with;sterile normal saline Wound Interventions off-loading Dressing dressing initiated;foam (Versatel, stockinet) Wound Image Visit Summary Next Wound/Ostomy Visit Date 05/23/19 PROBLEM LIST Patient Active Problem List Diagnosis Chest pain Atrial fibrillation with RVR Diabetes mellitus, type 2 HTN (hypertension) Cholelithiases WARD (obstructive sleep apnea) Basal cell carcinoma History of GI bleed ARF (acute renal failure) COPD (chronic obstructive pulmonary disease) Paroxysmal atrial fibrillation Hyperlipidemia Chronic back pain Obesity, Class I, BMI 30-34.9 CKD (chronic kidney disease) TIA (transient ischemic attack) 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 keratosis 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 COPD (chronic obstructive pulmonary disease) WARD (obstructive sleep apnea) Anxiety Depression Hypertension Chronic anticoagulation Musculoskeletal chest pain Numbness and tingling of right leg Precordial pain Pulmonary embolism without acute cor pulmonale Uncontrolled type 2 diabetes mellitus Leukocytosis Acute kidney injury Abrasion of scalp Acute neck sprain Back contusion Cervical muscle strain Chest wall pain CHI (closed head injury) Chronic radicular pain of lower extremity Constipation Contusion of right knee Diarrhea DVT (deep venous thrombosis) Dysphagia Fall Fall from ground level Flank pain Generalized weakness Genitourinary symptoms History of knee surgery Head contusion Injury of head Headache History of Coumadin therapy History of hip surgery History of syncope Hyperglycemia Hyperglycemia due to type 2 diabetes mellitus Leg pain Low back pain Nausea Neck pain Orthostatic hypotension Penile swelling Peripheral vertigo Right flank pain Right-sided chest wall pain Shakes Shortness of breath Shoulder pain Suicidal thoughts Syncope Retention of urine UTI (urinary tract infection) Syncope Other chest pain Uncontrolled hypertension Type 2 diabetes mellitus with hyperglycemia Anxiety Chronic anticoagulation Obesity Dizziness Fall from ground level Uncontrolled type 2 diabetes mellitus with hyperglycemia COPD (chronic obstructive pulmonary disease) KESHAWN (acute kidney injury) Chronic anticoagulation Developmental delay ASSESSMENT & PLAN Right elbow Wound: Partial thickness wound, cleansed with NS. Layer of versatel applied and covered with non-bordered foam. Stockinet to secure. Change every third day and PRN when so iled. Thank you for allowing me to participate in the care of this patient. I will continue to follow with you. Please call if there are any additional questions. Shawna Canseco RN 15:09 documented in this e ncounter ED Notes Yara Ponce RN - 05/15/2019 8:19 PM PDTBed: ED14 Expected date: Expected time: Means of arrival: Comments: 1722 imal Ramirez MD - 05/15/2019 8:18 PM PDT [facility] Department of Emergency Medicine Norah Gr EMERGENCY DEPARTMENT ENCOUNTER NOTE PCP:Mireya Pack NP Method of Arrival ambulance DIAGNOSIS: ICD-10-CM ICD-9-CM 1. Fall, initial encounter W19.XXXA E888.9 2. Traumatic hematoma of right knee, initial encounter S80.01XA 924.11 3. Chronic anticoagulation Z79.01 V58.61 4. Need for assistance due to unsteady gait R26.89 781.2 FINAL IMPRESSION ICD-10-CM ICD-9-CM 1. Fall, initial encounter W19.XXXA E888.9 2. Traumatic hematoma of right knee, initial encounter S80.01XA 924.11 3. Chronic anticoagulation Z79.01 V58.61 4. Need for assistance due to unsteady gait R26.89 781.2 Current Discharge Medication List MEDICAL DECISION MAKING : Patient reports to the ED with complaints of right knee injury and pain secondary to a [facility] anical fall. I have considered dislocation and posterior fracture as a partial list of diffe rential diagnoses. Will order labs, imaging, and reevaluate the patient. CHIEF COMPLAINT: Chief Complaint Patient presents with Fall tripped over a curve landing on his R knee and elbow Leg Deformity R ED Room: [address] [place] [address] Norah Gr is a 63 y.o. male who presents to the Emergency Department for right knee injur y secondary to fall Location: right knee Quality: Mechanical fall directly onto right knee causing deformity Severity: mild to moderate Duration: just [employer] Timing: constant Modifying factors: none Care prior to arrival: none Associated symptoms: dizziness, knee pain, and swelling Denies: any other symptoms at this time 63 y.o. male. pt presents to the ED with a right leg deformity. Onset of symptoms was earli er tonight, with a constant course since that time. Severity is described as mild moderate.T he patient reports walking worsens symptoms, and nothing relieves symptoms. Patient states t hat he was out walking when we got dizzy and tripping over a curb in a parking lot. He state s he landed on his right knee, but is unsure if the knee bent backward or forward. Patient r eports after the fall he was unable to bear weight on the right knee. He states he is experi encing severe knee pain but does not recall if his knee bent backwards. Patient reports that he often has dizziness. Patient has a history of poorly controlled diabetes and PE. Patient is currently on Eliquis. 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 Obesity, Class I, BMI 30-34.9 07/08/2013 WARD (obstructive sleep apnea) 08/11/2012 does not use CPAP because of the noise Other chronic pain Renal failure Stroke (HCC) TIA (transient ischemic attack) Unspecified visual disturbance reading glasses Past Surgical History: Procedure Laterality Date ABDOMEN SURGERY CHOLECYSTECTOMY CHOLECYSTECTOMY, LAPAROSCOPIC 09/12/2012 Procedure: LAPAROSCOPIC - CHOLECYSTECTOMY; Surgeon: Jevon Vargas DO; Location: [facility] MAIN OR; Service: General; Laterality: N/A; COLONOSCOPY COLONOSCOPY 03/04/2013 Procedure: COLONOSCOPY; Surgeon: Howie Gibson MD; Location: [facility] ENDOSCOPY; Service: Gastroen terology; Laterality: N/A; HERNIA REPAIR 07/03/2013 Procedure: LAPAROSCOPIC - HERNIA - INCISIONAL; Surgeon: Jevon Vargas DO; Location: [facility] MA[facility] OR; Service: General; Laterality: N/A; KNEE SURGERY rt knee, patella LEG SURGERY LLE OTHER SURGICAL HISTORY UNLISTED PROCEDURE ARTHROSCOPY OTHER SURGICAL HISTORY Left 05/05/2014 SKIN LESION EXCISION - Procedure: EXCISION - LESION - FROZEN SECTION; Surgeon: Sy murcia MD; Location: [facility] MAIN OR; Service: Plastics; Laterality: Left; forearm SKIN BIOPSY SKIN CANCER EXCISION Left 10/10/2012 Procedure: EXCISION - SKIN CANCER; Surgeon: Sy Fierro MD; Location: [facility] MAIN OR; Service: Plastics; Laterality: Left; upper arm and upper back w/frozen section UPPER GASTROINTESTINAL ENDOSCOPY UPPER GASTROINTESTINAL ENDOSCOPY 03/03/2013 Procedure: ESOPHAGOGASTRODUODENOSCOPY; Surgeon: Howie Gibson MD; Location: [facility] ENDOSCOPY; Se rvice: Gastroenterology; Laterality: N/A; CURRENT MEDICATIONS [employer]IST Home Medications Medication Sig acetaminophen (TYLENOL) 325 mg tablet Take 2 tablets by mouth every 4 hours as needed f or Pain (or fever >= 38.6 C (101.5 F)). apixaban (ELIQUIS) 5 mg tablet Take 1 tablet by mouth 2 times daily. ARIPiprazole (ABILIFY) 5 mg tablet Take 1 tablet by mouth Daily. aspirin 81 MG tablet Take 81 mg by mouth Daily as needed for Fever. atorvaSTATin (LIPITOR) 40 mg tablet Take 1 [...] (NOVOLOG FLEXPEN) 100 units/mL injection pen Inject 10 Units under the s kin 3 times daily (before meals). Plus 5 units if > 300 insulin detemir (LEVEMIR FLEXTOUCH) 100 units/mL injection (pen) Inject 45 Units under the skin nightly. Insulin Pen Needle (BD PEN NEEDLE KYAW U/F) 32G X 4 MM MISC For insulin administration 4 times daily Lancets (ACCU-CHEK MULTICLIX) MISC 1 each by Other route 4 times daily. lisinopril (PRINIVIL,ZESTRIL) 40 MG tablet Take 1 tablet by mouth Daily. meclizine (ANTIVERT) 25 mg tablet Take 1 tablet by mouth 3 times daily as needed. metFORMIN (GLUCOPHAGE) 500 mg tablet Take 1 tablet by mouth 2 times daily (with breakfa st & dinner). NIFEdipine (ADALAT CC) 60 MG 24 hr tablet Take 1 tablet by mouth Daily. omeprazole (PRILOSEC) 20 mg capsule Take 1 capsule by mouth every morning (before break fast). tamsulosin (FLOMAX) 0.4 mg CAPS Take 1 [...] Lives alone x 1 wk, moved from [facility], , 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 2 falls in the last 6 months. REVIEW OF SYSTEMS Constitutional: Positive for mechanical fall and dizziness (ongoing) Negative for fever, chills Eyes: Negative for vision changes Nose: Negative for congestion, nosebleeds Throat: Negative for sore throat CV/Resp: Negative for chest pain, [id number], cough GI: Negative for abdominal pain, nausea, vomiting, or diarrhea : Negative for urinary problems Musculoskeletal: Positive for right knee injury, swelling, and pain Negative for back pain Skin: Negative for rash Neuro/Psych: Negative for headache Endo/heme/Lymph: Negative for swollen lymph nodes, easy bruising All other systems reviewed and negative except as noted. PHYSICAL EXAM VITAL SIGNS: (first vital signs):Temp: 36.4 C (97.5 F) Pulse: 88 Resp: 22 SpO2: 98 % BP : 175/90 Body mass index is 30.9 kg/m. Weight change: Vitals: 05/16/19 2357 05/17/19 0433 05/17/19 0724 05/17/19 1027 BP: 122/61 107/63 116/62 126/62 Pulse: 64 66 88 70 Resp: 18 18 20 18 Temp: 36.9 C (98.4 F) 36.7 C (98.1 F) 36.7 C (98 F) 36.9 C (98.4 F) TempSrc: Oral Oral Oral Oral SpO2: 94% 94% 98% 98% Weight: Height: General: Alert, no active distress and not requiring any emergent interventions Eyes: Normal inspection, pupils equal and round, non-icteric sclera ENT: Ears normal Nose normal Pharynx normal Neck: Normal inspection Supple Full ROM Cardiovascular: Normal rate and rhythm, no extra sounds No murmurs rubs or gallops Focal PMI Respiratory: No respiratory distress or wheezing Normal excursion No retractions Abdomen: Soft, non-tender, non-distended Normal active bowel sounds Back: Normal inspection Without tenderness or deformity Skin: Color normal Warm and dry Extremities: Refer to images below Neuro: No gross motor/sensory deficit GCS 15 No cerebellar deficits Alert and oriented to person, place, time and situation. EKG 9:50 PM Normal sinus rhythm at with PAC's at 77 bpm. Normal OR and RICAHRD Normal QRS and Freedom Slightly prolong QT and QTC T wave inversions laterally No acute ischemic changes An EKG dated April 23, 2019 the PAC's are new and the remainder is otherwise unchanged in comparison to the EKG obtained today. Interpreted by Bimal Ramirez DO. LABS Results Procedure Component Value Ref Range Date/Time Type and Screen [[id number]] Collected: 05/15/192023 Order Status: Completed Specimen: Blood Updated: 05/16/19 0211 ABO Rh A POSITIVE Antibody Screen NEGATIVE BB BAND [id number] BB BAND Testing [place] [facility] [place] [place] [address];[place] [address] B Type Natriuretic Peptide [[id number]] Collected: 05/15/192023 Order Status: Completed Updated: 05/15/192100 BNP 37.14 0 - 100 pg/mL Comprehensive Metabolic Panel [[id number]] (Abnormal) Collected: 05/15/192023 Order Status: Completed Specimen: Blood Updated: 05/15/192056 Na 139 135 - 145 mmol/L K 3.1 3.5 - 4.9 mmol/L Cl 103 99 - 109 mmol/L CO2 26 23 - 32 mmol/L Anion Gap 13 5 - 20 mmol/L Glucose 213 65 - 99 mg/dL BUN 13 8 - 25 mg/dL Creatinine 0.84 0.70 - 1.30 mg/dL BUN/Creatinine Ratio 15 Calcium 9.7 8.5 - 10.5 mg/dL Protein, Total 7.0 6.3 - 8.2 g/dL Albumin 4.1 3.3 - 4.8 g/dL Globulin 2.9 1.3 - 4.9 g/dL A/G Ratio 1.4 1.0 - 2.4 BILIRUBIN, TOTAL 0.5 0.1 - 1.5 mg/dL ALK PHOS 162 35 - 115 U/L AST 22 10 - 45 U/L ALT 22 10 - 65 U/L Estimated GFR >60 >60 mL/min/1.73m2 Troponin I [[id number]] Collected: 05/15/192023 Order Status: Completed Specimen: Blood Updated: 05/15/192056 Troponin I 0.031 0.00 - 0.04 ng/mL CK Total [[id number]] Collected: 05/15/192023 Order Status: Completed Specimen: Blood Updated: 05/15/192056 CK TOTAL 68 55 - 400 U/L PTT [[id number]] Collected: 05/15/192023 Order Status: Completed Specimen: Blood Updated: 05/15/192047 PTT 26 23 - 32 seconds Protime INR [[id number]] Collected: 05/15/192023 Order Status: Completed Specimen: Blood Updated: 05/15/192047 INR 0.9 CBC with Differential [[id number]] (Abnormal) Collected: 05/15/192023 Order Status: Completed Specimen: Blood Updated: 05/15/192041 WBC 12.52 3.80 - 11.00 K/uL RBC 5.63 4.20 - 5.70 M/uL Hemoglobin 15.9 13.2 - 17.0 g/dL Hematocrit 46.7 39.0 - 50.0 % MCV 82.9 80.0 - 100.0 fl MCH 28.2 27.0 - 34.0 pg MCHC 34.0 32.0 - 35.5 g/dL RDW-SD 39.1 37 - 53 fl Platelet Count 257 150 - 400 K/uL MPV 9.3 fl Diff Type AUTOMATED % nRBC 0.0 0 /100WBC % Neutrophils 49.40 % IMMATURE GRANULOCYTE 0.70 % % Lymphocytes 31.90 % Monocyte % 8.80 % Eosinophils % 8.50 % Basophils % 0.70 % Neutrophils, Absolute 6.19 1.90 - 7.40 K/uL IMMATURE GRANS AB 0.09 0.00 - 0.07 K/uL Absolute Lymphocytes 3.99 1.00 - 3.90 K/uL Absolute Monocytes 1.10 0.00 - 0.80 K/uL Eosinophils, Absolute 1.06 0.00 - 0.50 K/uL Basophils, Absolute 0.09 0.00 - 0.10 K/uL IMAGING STUDIES (X-Rays interpreted by ED Physician) Recent Results (from the past 360 hour(s)) XR Chest AP Portable Narrative CHEST PORTABLE ONE VIEW CLINICAL INFORMATION: Fall. Right leg pain after Fall. Right leg deformity. COMPARISON: XR CHEST PA AND LATERAL (04/13/2019); XR CHEST PA AND LATERAL (04/04/2019); XR CHEST PA AND LATERAL (03/21/2019); FINDINGS: Supine AP portable chest 05/15/2019 at 2017 hours. The lungs are symmetrically expanded. No evidence of pneumothorax, pleural effusion, or focus of airspace consolidation. The heart and mediastinal contours and pulmonary vessels are normal. Osseous structures appear intact. Impression Negative portable chest. Signed by: Irina Man Brian Sign Date/Time: 05/15/2019 8:47 PM XR Pelvis 1 or 2 Vw Narrative PELVIS ONE OR TWO VIEWS; RIGHT KNEE ONE OR TWO VIEWS CLINICAL INFORMATION: Right leg pain after Fall. Right leg deformity. COMPARISON: XR ABDOMEN SUPINE AND UPRIGHT WITH 1 VW CHEST (11/15/2018); CT ABDOMEN PELVIS W CONTRAST (02/25/2016); FINDINGS: Pelvis: Normal osseous mineralization. Subtle contour abnormalities of the pelvis in the region of the right superior inferior pubic rami, unchanged from CT scan of 2017, compatible with old healed fractures. The femoral head and neck regions appear intact. Right knee: L-shaped metal fixation plate and multiple anchoring screws overlies the lateral aspect of the proximal tibia metadiaphysis. Metallic fixation hardware appears intact. No acute fracture or dislocation. Prominent prepatellar soft tissue swelling noted. There is distention of the suprapatellar bursa, compatible with knee joint effusion. Impression 1. Old healed fracture deformities of the pelvis. No acute pelvic or proximal femur fracture identified. 2. Prominent prepatellar soft tissue swelling of the right knee. No acute fracture or dislocation. 3. Right knee joint effusion. Signed by: Irina Man Brian Sign Date/Time: 05/15/2019 8:52 PM XR Knee Right 1 - 2 Vw Narrative PELVIS ONE OR TWO VIEWS; RIGHT KNEE ONE OR TWO VIEWS CLINICAL INFORMATION: Right leg pain after Fall. Right leg deformity. COMPARISON: XR ABDOMEN SUPINE AND UPRIGHT WITH 1 VW CHEST (11/15/2018); CT ABDOMEN PELVIS W CONTRAST (02/25/2016); FINDINGS: Pelvis: Normal osseous mineralization. Subtle contour abnormalities of the pelvis in the region of the right superior inferior pubic rami, unchanged from CT scan of 2017, compatible with old healed fractures. The femoral head and neck regions appear intact. Right knee: L-shaped metal fixation plate and multiple anchoring screws overlies the lateral aspect of the proximal tibia metadiaphysis. Metallic fixation hardware appears intact. No acute fracture or dislocation. Prominent prepatellar soft tissue swelling noted. There is distention of the suprapatellar bursa, compatible with knee joint effusion. Impression 1. Old healed fracture deformities of the pelvis. No acute pelvic or proximal femur fracture identified. 2. Prominent prepatellar soft tissue swelling of the right knee. No acute fracture or dislocation. 3. Right knee joint effusion. Signed by: Irina Man Brian Sign Date/Time: 05/15/2019 8:[address] Knee Right wo Contrast Narrative CT LOWER EXTREMITY; WITHOUT CONTRAST (CPT) CT RIGHT KNEE CLINICAL INFORMATION: Right knee trauma/pain after a fall. COMPARISON: Right knee x-rays 05/15/2019. PROCEDURE: Volume CT acquisition with multiplanar reconstructions. 3-D reformations created on a separate workstation. At least one of the following CT dose optimization techniques were used: Automated exposure control; Adjustment of mA and/or kV according to patient size; Use of iterative reconstruction technique. FINDINGS: 1. Distal Femur: Intact. A large curvilinear ossification is density is seen at the origin of the medial collateral ligament of the knee. 2. Patella: Intact. 3. Proximal Tibia/Fibula: No acute fracture. Lateral metallic fixation plate and multiple anchoring screws seen at the proximal tibia metadiaphysis. 4. Joint Space: No knee joint effusion. 5. Soft Tissue: A large ovoid hematoma is seen in the superficial soft tissues overlying the anteromedial aspect of the distal thigh, centered above the knee joint level, measuring approximately 8.7 x 4.8 x 4.6 cm (coronal image 26 series 9 and sagittal image 52 series 10). Sagittal reformat views show fluid-fluid level within the hematoma (sagittal image 50-53, series 10). Prepatellar soft tissue swelling/edema is also seen with reticulation of the subcutaneous fat layer. Calcific atherosclerotic plaque seen within the femoral artery and trifurcation region. Impression 1. No acute fracture of the distal femur or proximal tibia/fibula. 2. Large ovoid superficial soft tissue hematoma overlying the anteromedial aspect of the distal thigh, centered above the knee joint, with estimated volume of 100 cc. 3. Prepatellar soft tissue swelling/edema. 4. Atherosclerotic vascular disease. Signed by: Irina Man Brian Sign Date/Time: 05/15/2019 9:[address] Head wo Contrast Narrative CT HEAD WITHOUT CONTRAST CLINICAL INFORMATION: Headache after a fall. COMPARISON: CT HEAD WO CONTRAST (01/25/2019); MRI ANGIOGRAM HEAD WO CONTRAST (01/04/2019); MRI BRAIN WO CONTRAST (01/04/2019); PROCEDURE: Axial images were obtained through the head without IV contrast. Multiplanar reformations were obtained from the acquisition data. At least one of the following CT dose optimization techniques were used: Automated exposure control; Adjustment of mA and/or kV according to patient size; Use of iterative reconstruction technique. FINDINGS: Brain: No intracranial hemorrhage, midline shift or pathologic mass effect. No cerebral edema, mass lesion, or evidence of acute infarct. Mild generalized cerebral volume loss, unchanged. Ventricles and extra-axial fluid spaces: Normal. Paranasal sinuses and mastoid air cells: Patchy opacification of several ethmoid air cells bilaterally and the left frontal sinus. Mastoid air cells normal. Calvarium and extracranial soft tissues: Right forehead small contusion. No underlying calvarial fracture. Orbits: Imaged portions of the orbits are normal. Impression 1. No acute intracranial pathology. 2. Small right forehead scalp contusion. No underlying fracture. Signed by: Irina Ji James Sign Date/Time: 05/16/2019 2:15 AM ED COURSE Pertinent Labs & Imaging studies were reviewed along with EMS notes and snf record s if applicable. (See chart for details) Medications and Allergy list reviewed. Nurses note and old records were reviewed with regard to the past medical/surgical history, previous medications, and allergies. 20:21 The patient was seen and examined, will order labs, imaging, and reevaluate the patie nt. 8:40 PM CBC shows elevated RBC at 12.52, elevated immature granulocytes at 0.09, elevated a bsolute lymphocytes at 3.99, elevated absolute monocytes at 1.1, and elevated absolute eosin ophils at 1.06. 8:47 PM CXR is negative. INR is at 0.9. PTT is at 26. 8:52 PM X-ray of the right knee and pelvis shows old healed fracture deformities of the pel vis. No acute pelvic or proximal femur fracture identified. Prominent prepatellar soft tis negrito swelling of the right knee. No acute fracture or dislocation. Right knee joint effusio n. 8:55 PM CK total is at 68. CMP shows potassium decreased at 3.1, elevated glucose at 213, a nd elevated ALK PHOS at 162. Troponin is normal at 0.031. 8:59 PM BNP is normal at 37. 14. 9:[address] Trent, orthopedics who recommends obtaining a CT scan of the roberto ent's right knee for diagnosis. 9:[address] of the right knee shows no acute fracture of the distal femur or proximal tibia/ fibula. Large ovoid superficial soft tissue hematoma overlying the anteromedial aspect of th e distal thigh, centered above the knee joint, with estimated volume of 100 cc. Prepatellar soft tissue swelling/edema. Atherosclerotic vascular disease.Will admit the patient due to h im not being able to bear weight on the knee and living at home. 10:24 PM Discussed the patient with Dr. Marti, hospitalist who accepts the patient for ad mission. Will monitor the patient until transferred into hospitalist services. I personally reviewed the lab results and they have been posted to the chart. Pertinent po sitive and negative findings have been addressed appropriately and I have discussed any sign ificant abnormalities. Last Set of Vital Signs: Temp: 36.9 C (98.4 F) Pulse: 70 Resp: 18 SpO2: 98 % BP: 126/62 Medications apixaban (ELIQUIS) tablet 5 mg (5 mg Oral Given 05/17/19 0841) ARIPiprazole (ABILIFY) tablet 5 mg (5 mg Oral Given 05/17/1941) atorvaSTATin (LIPITOR) tablet 40 mg (40 mg Oral Given 05/16/192119) budesonide-formoterol (SYMBICORT) 160-4.5 mcg/puff inhaler 2 puff (2 puffs Inhalation Given 05/17/19 0845) carvedilol (COREG) tablet 12.5 mg (12.5 mg Oral Given 05/17/19 0840) finasteride (PROSCAR) tablet 5 mg (5 mg Oral Given 05/17/19 0841) hydrALAZINE (APRESOLINE) tablet 25 mg (25 mg Oral Given 05/17/1941) lisinopril (PRINIVIL, ZESTRIL) tablet 40 mg (40 mg Oral Given 05/17/19 0842) NIFEdipine (PROCARDIA XL) ER tablet 60 mg (60 mg Oral Given 05/17/19 08) tamsulosin (FLOMAX) capsule 0.4 mg (0.4 mg Oral Given 05/17/19840) dextrose 50% injection 12.5-25 g (has no administration in time range) And dextrose 10% (D10W) infusion (has no administration in time range) acetaminophen (TYLENOL) tablet 650 mg (has no administration in time range) HYDROcodone-acetaminophen (NORCO) 5-325 mg per tablet 1-2 tablet (2 tablets Oral Given 05/16 1111) melatonin tablet 3 mg (has no administration in time range) polyethylene glycol (MIRALAX) powder 17 g (17 g Oral Given 05/16/191934) ondansetron (ZOFRAN) injection 4 mg (4 mg Intravenous Given 05/16/191934) morphine injection 2-6 mg (has no administration in time range) insulin lispro (humaLOG) injection (vial) 0-12 Units (2 Units Subcutaneous Given 05/17/19 11 12) ibuprofen (ADVIL, MOTRIN) tablet 400 mg (400 mg Oral Given 05/17/19 1112) pantoprazole (PROTONIX) DR tablet 40 mg (40 mg Oral Given 05/17/19 0626) albuterol-ipratropium 2.5-0.5 mg/3 mL nebulizer solution 3 mL (has no administration in johny e range) insulin lispro (humaLOG) injection (vial) 15 Units (15 Units Subcutaneous Given 05/17/19 084 4) insulin detemir (LEVEMIR FLEXTOUCH) injection (pen) 50 Units (has no administration in time range) ondansetron (ZOFRAN) injection 8 mg (8 mg Intravenous Given 05/15/192031) Vitals: 05/16/19 2357 05/17/19 0433 05/17/19 0724 05/17/19 1027 BP: 122/61 107/63 116/62 126/62 Pulse: 64 66 88 70 Resp: 18 18 20 18 Temp: 36.9 C (98.4 F) 36.7 C (98.1 F) 36.7 C (98 F) 36.9 C (98.4 F) TempSrc: Oral Oral Oral Oral SpO2: 94% 94% 98% 98% Weight: Height: Bimal Ramirez. This document has been prepared with a voice recognition system. The possibility of "sound alike" sample sewer errors, addition and/or deletions may occur. If there is any question p lease contact the author of the document. Bimal Ramirez, DO Procedures Attending Provider Note: Bimal Simmons MD, personally performed the services describ ed in this documentation, as scribed by Yashira Pal Che and Noble Guerin in my presence, and it is both accurate and complete. Chart Reviewed and Completed 05/17/2019 11:58 AM. Scribe: Yashira Simmons Che and lo Barrientos, scribing for and in the presence of Elissa Ramirez MD. Completed by: Yashira Pal Che and lo Barrientos 05/15/19 10:43 PM. Bimal Ramirez MD 05/17/19 1158 documented in this encounter Miscellaneous Notes Plan of Care - Rianna Sharpe MSW - 05/18/2019 2:04 PM PDTSNF Transfer Order faxed to , receipt confirmed by Denise via phone call at 2:04pm. Denise states nothing else needed at this time. lan of Jeffrey bonilla - Mel Mckoy RN - 05/18/2019 1:35 PM PDTReport to [facility] onically signed by Mel Mckoy RN at 05/18/2019 1:35 PM PDTSNF Transfer - Keisha Ahn MD - 05/18/2019 12:59 PM PDTFormatting of this note might be different from the orig inal. [facility] FACILITY TRANSFER ORDERS Patient Name: Norah Gr Patient : 1955 Gender: male Date of Admission: 05/15/2019 Date of Discharge: 05/18/2019 Admitting Provider: Jorge Roberto* Discharging Provider: Keisha Ahn MD Consultants: PCP: Mireya Pack [facility] STATUS: Full Code Isolation/Infection Precautions: [x] None Admitting Diagnosis: Chronic anticoagulation Fall, initial encounter Traumatic hematoma of right knee, initial encounter Need for assistance due to unsteady gait Patient Active Problem List Diagnosis Chest pain Atrial fibrillation with RVR Diabetes mellitus, type 2 HTN (hypertension) Cholelithiases WARD (obstructive sleep apnea) Basal cell carcinoma History of GI bleed ARF (acute renal failure) COPD (chronic obstructive pulmonary disease) Paroxysmal atrial fibrillation Hyperlipidemia Chronic back pain Obesity, Class I, BMI 30-34.9 CKD (chronic kidney disease) TIA (transient ischemic attack) Actinic keratosis 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 COPD (chronic obstructive pulmonary disease) WARD (obstructive sleep apnea) Anxiety Depression Hypertension Chronic anticoagulation Musculoskeletal chest pain Numbness and tingling of right leg Precordial pain Pulmonary embolism without acute cor pulmonale Uncontrolled type 2 diabetes mellitus Leukocytosis Acute kidney injury Abrasion of scalp Acute neck sprain Back contusion Cervical muscle strain Chest wall pain CHI (closed head injury) Chronic radicular pain of lower extremity Constipation Contusion of right knee Diarrhea DVT (deep venous thrombosis) Dysphagia Fall Fall from ground level Flank pain Generalized weakness Genitourinary symptoms History of knee surgery Head contusion Injury of head Headache History of Coumadin therapy History of hip surgery History of syncope Hyperglycemia Hyperglycemia due to type 2 diabetes mellitus Leg pain Low back pain Nausea Neck pain Orthostatic hypotension Penile swelling Peripheral vertigo Right flank pain Right-sided chest wall pain Shakes Shortness of breath Shoulder pain Suicidal thoughts Syncope Retention of urine UTI (urinary tract infection) Syncope Other chest pain Uncontrolled hypertension Type 2 diabetes mellitus with hyperglycemia Anxiety Chronic anticoagulation Obesity Dizziness Fall from ground level Uncontrolled type 2 diabetes mellitus with hyperglycemia COPD (chronic obstructive pulmonary disease) KESHAWN (acute kidney injury) Chronic anticoagulation Developmental delay Allergies Allergen Reactions Nitroglycerin Swelling Tongue swelling Vitamin B12 Rash Rash Most Recent Immunizations Administered Date(s) Administered INFLUENZA 65 Y OR >, TRIVALENT HIGH-DOSE 11/07/2018 INFLUENZA PF QUAD(PED/ADOL/ADULT),PSKT or VIAL 02/07/2018 INFLUENZA PF TRIVALENT(PED/ADOL/ADULT), PSKT 10/28/2016 INFLUENZA TRIV W/PRES(PED/ADOL/ADULT),MULTIDOSE 11/15/2013 PNEUMOCOCCAL CONJUGATE 13-VALENT (PCV13) 11/07/2018 TDAP, (ADOL/ADULT) 12/16/2014 Diet: [] As tolerated BUSINESS TEACHER may upgrade or downgrade diet as condition Indicates. [] RN may downgrade diet as indicated. Type: [x] Continue current diet of: Diet fat and cholesterol modified; Effective Now Diet and Supplements Diet Diet fat and cholesterol modified; Effective Now Number of Occurrences: Until Specified Order Questions: Type Diet fat and cholesterol modified [] 1:1 feedings and Aspiration precautions Tube Feedings: [] PEG [] GT [] JT [] Formula type: (Filament Wound Parts Fabricator may change/substitute if indicated). [] Continuous Rate: ml/hr, infusing hrs/day [] Bolus feeds: ml every hours [] Additional water: ml every hours Respiratory: [] BiPAP at night & PRN SOB. Settings: [] CPAP at night & PRN SOB. Settings: [] Incentive Spirometer QID and PRN while awake. [] Oxygen: Lpm NC/Trach [] Continuous [] NOC [] Humidified [] prn SaO2 < % [] prn SOB/dyspnea Bladder: [] Carlin catheter managment per nursing protocol [] Suprapubic catheter management Other Lines, Tubes and Drains: (to be managed by nursing protocol) [] PICC Line care per protocol [] Colostomy /Ileostomy Care per protocol [] Urostomy [] Nephrostomy []Other: Activity/Therapies: [x]WBAT [] Weight Bearing Restricted (specify limb(s)): [x] PT Evaluation & Treat [x] OT Evaluation & Treat [] BUSINESS TEACHER Evaluation Treat Wound/Skin Care: [] Follow current recommendations of the wound team for treatment. [] Wound Vac management per nursing protocol. Labs/Imaging: [] PT/INR: Frequency per SNF provider Goal INR: [x] Fingerstick glucose check before meals and bedtime and PRN Follow up: [facility] [id number] [facility] [id number] I have advised this patient that he/she not use tobacco products. TB screening: Upon admission the 1st and 2nd step TST will be done as per protocol if Resid ent has no history of TB or a past positive TST. Pharmacist may substitute equivalent Rx based on facility or insurance formulary as needed unless otherwise specified by physician. Please write "SIERRA" (Dispense as written) if a medi cation should not be substituted. Please make sure to write a diagnosis for ALL medications continued on transfer. Antibioti cs require a stop date. If medications do not contain a SIG, make sure doses/routes and che edule is included. Medication Orders New Medications Details Order Next Dose Due HYDROcodone-acetaminophen 5-325 mg per tablet Take 1-2 tablets by mouth every 4 hours as needed for up to 10 days. aka: NORCO By: Keisha Ahn MD Quant: 30 tablet insulin lispro 100 units/mL injection (pen) Replaces: insulin aspart 100 units/mL injection pen Inject 15 Units under the skin 3 times daily (with meals). aka: humaLOG KWIKPEN By: Keisha Ahn MD melatonin 3 mg Tabs Take 1 tablet by mouth nightly as needed for Insomnia. By: Keisha Ahn MD Quant: 30 tablet polyethylene glycol packet Take 1 diluted packet by mouth Daily as needed for Constipation for up to 10 days. aka: MIRALAX By: Keisha Ahn MD Quant: 12 each Unchanged Medications Details Order Next Dose Due accu-chek multiclix Misc 1 each by Other route 4 times daily. By: Mireya Pack, NORM Dx: Type 2 diabetes mellitus with hyperglycemia, with long-term current use of insulin Quant: 400 each acetaminophen 325 mg tablet Take 2 tablets by mouth every 4 hours as needed for Pain (or fever >= 38.6 C (101.5 F)). aka: TYLENOL By: Norah Duron MD Quant: 30 tablet apixaban 5 mg tablet Take 1 tablet by mouth 2 times daily. aka: ELIQUIS By: Mireya Pack NP Quant: 60 tablet ARIPiprazole 5 mg tablet Take 1 tablet by mouth Daily. aka: ABILIFY By: Keisha Ahn MD Quant: 30 tablet atorvaSTATin 40 mg tablet Take 1 tablet by mouth nightly. aka: LIPITOR By: Mireya Pack NP Dx: Type 2 diabetes mellitus with diabetic polyneuropathy, with long-term current use of i nsulin Quant: 30 tablet Blood Glucose Monitor System w/Device Kit Dispense brand per patient preference By: Mireya Pack NP Dx: Type 2 diabetes mellitus with diabetic polyneuropathy, with long-term current use of i nsulin Quant: 1 each BLOOD GLUCOSE TEST STRIPS Strp For blood sugar testing 4 times daily By: Mireya Pack NP Dx: Type 2 diabetes mellitus with diabetic polyneuropathy, with long-term current use of i nsulin Quant: 400 each budesonide-formoterol 160-4.5 mcg/puff inhaler Inhale 2 puffs into the lungs 2 times daily. aka: SYMBICORT By: Mireya Pack NP Quant: 1 Inhaler carvedilol 12.5 mg tablet Take 1 tablet by mouth 2 times daily (with breakfast & dinner). aka: COREG By: Mireya Pack NP Quant: 60 tablet finasteride 5 mg tablet Take 1 tablet by mouth Daily. aka: PROSCAR By: Mireya Pack NP Quant: 30 tablet hydrALAZINE 25 mg tablet Take 1 tablet by mouth 2 times daily. aka: APRESOLINE By: Mireya Pack NP Quant: 60 tablet insulin detemir 100 units/mL injection (pen) Inject 45 Units under the skin nightly. aka: LEVEMIR FLEXTOUCH By: Keisha Ahn MD Quant: 12 mL Insulin Pen Needle 32G X 4 MM Misc For insulin administration 4 times daily aka: BD PEN NEEDLE KYAW U/F By: Mireya Pack NP Dx: Type 2 diabetes mellitus with diabetic polyneuropathy, with long-term current use of i nsulin Quant: 200 each lisinopril 40 MG tablet Take 1 tablet by mouth Daily. aka: PRINIVIL,ZESTRIL By: Mireya Pack NP Quant: 30 tablet meclizine 25 mg tablet Take 1 tablet by mouth 3 times daily as needed. aka: ANTIVERT By: Mireya Pack NP Quant: 60 tablet metFORMIN 500 mg tablet Take 1 tablet by mouth 2 times daily (with breakfast & dinner). aka: GLUCOPHAGE By: Mireya Pack NP Quant: 60 tablet NIFEdipine 60 MG 24 hr tablet Take 1 tablet by mouth Daily. aka: ADALAT CC By: Mireya Pack NP Quant: 30 tablet omeprazole 20 mg capsule Take 1 capsule by mouth every morning (before breakfast). aka: priLOSEC By: Mireya Pack NP Quant: 30 capsule tamsulosin 0.4 mg Caps Take 1 capsule by mouth 2 times daily. aka: FLOMAX By: Mireya Pack NP Quant: 60 capsule Discontinued Medications aspirin 81 MG tablet insulin aspart 100 units/mL injection pen aka: NOVOLOG FLEXPEN Replaced by: insulin lispro 100 units/mL injection (pen) IKeisha MD, certify that post hospital alf care is medically necessar y on a continuing basis for any of the conditions for which he/she received care during this hospitalization. Additional Orders/Instructions: Physician's signature:____Keisha Ahn 05/18/2019 12:59 PM [facility]SING [facility] USE ONLY: [] Admitting orders verbally reviewed with Admitting Physician, modified where appropriate, and approved. Verbal Order from Date: Time: _ RN name: RN signature: [] Admitting orders reviewed, modified where appropriate, and approved. Physician's signature: Date: Time: lan of Rianna Maynard MSW - 05/18/2019 10:59 AM PDTPer [phone] 9[facility]40a m, facility can accept patient today and will arrange w/c transport for a 3pm pick and shovel man. Bere omer PASSR has already been received. SNF Transfer Order and scripts for nacotics needed f or d/c. Unit DIRECTOR OF SEARCH ENGINE OPTIMIZATION and lead aware. Spoke with patient who confirms agreement with plan and readiness for d/c today. 11:15am spoke with Dr. Ahn and notified of above. lan of Mel Juárez RN - 05/18/2019 8:31 AM PDT Problem: Fall Injury Risk Goal: Absence of Fall and Fall-Related Injury Enc TCDB, enc IS usage (teach patient proper usage) auscultate lung sounds Q4 hours and prn . Enc ambulation. Monitor VS. Look for trends. Consult for RT if necessary. Monitor O2 sa ts Outcome: Ongoing, progressing Problem: Adult Inpatient Plan of Care Goal: Plan of Care Review Include patient in plan of care for the day. Explain all lab tests, procedures, and other medical testing. Discuss and educate on medications and lab values. Encourage patient to a sk questions/clarify, and answer all questions that may arise. Outcome: Ongoing, progressing Problem: Pain Acute Goal: Optimal Pain Control Pain scale explained to patient, no questions, and verbalizes understanding. Non medicinal pain interventions explained. Deep breathing shown, relaxation techniques shared. Will mo nitor pain level Outcome: Ongoing, progressing lan of Marifer Ford RN - 05/18/2019 5:22 AM PDT Problem: Adult Inpatient Plan of Care Goal: Readiness for Transition of Care Outcome: Ongoing, progressing Pt frequently verbalizing eagerness to go to [facility] later today, appears comfortabl e and states boredom. Called for pain medication once this shift. Problem: Wound Goal: Optimal Wound Healing Outcome: Ongoing, progressing Elbow wound is dry with no new drainage, dressing reinforced. No complaint offered from pt. lan of Franko Mace MSW - 05/17/2019 11:19 AM PDTCM spoke with Allen at [facility] who has no openings until Monday. CM received a call from [facility] stating they can accept pt on Monday . Franko SPRINGER lan of Elia Casey RN - 05/17/2019 9:43 AM PDT Problem: Adult Inpatient Plan of Care Goal: Absence of Hospital-Acquired Illness or Injury Outcome: Ongoing, progressing Pt using call light independently and appropriately; bedside table and call light within r each; non skid socks on; bed in lowest and locked position; adequate light on in room; room door open. lan of Randa Gold, PT - 05/17/2019 8:34 AM PDTFormatting of this note might be different fr om the original. Physical Therapy Treatment, Discharge Note Recommended discharge disposition: alf facility Post discharge physical therapy recommendation: outpatient therapy Equipment Recommendations: 2 wheeled walker (FWW) Barriers to community-based discharge Cognitive Impairment, Physical Impairment, and Fall risk Planned Interventions: (may reflect documentation from different provider) Recommended Frequency: Patient has met PT goals. Recommend DC to SNF for continued balance training due to history of falls. No further skilled acute PT needs identified. Summary: Patient agreed to tx. He is able to mobilize safely with FWW. No adverse response to PT intervention. Patient has met PT goals. OK for nursing to continue to mobilize liza t. Recommend SNF for balance training due to history of falls. Precautions Precautions/Limitations: no known precautions/limitations Right Lower Extremity Weight-Bearing: weight-bearing as tolerated Cognitive Assessment Additional Documentation: personal safety, follows commands/answers questions Speech: clear Follows Commands/Answers Questions: 100% of the time, needs increased time Personal Safety: decreased insight to deficits Executive Function Skills: mild impairment Reasoning: mild impairment Bed Mobility Additional Documentation: supine to/from sit Assistive Device: HOB elevated Supine to Sit, Level of Marathon: modified independent Sit to Supine, Level of Marathon: not tested Safety Issues: decreased use of legs for bridging/pushing Impairments: strength decreased Transfers Transfers Comments: Uses momentum strategy to stand from EOB. Verbal cues to push up from b ed instead of pulling on FWW. Additional Documentation: sit to/from stand, bed to/from chair Bed-Chair, Level of Marathon: modified independent Chair-Bed, Level of Marathon: not tested [id number]-[id number]-Gsa, Assistive Device: 2 wheeled walker (FWW) Sit-Stand, Level of Marathon: modified independent Stand-Sit, Level of Marathon: modified independent [id number]-Yikye-Fma, Assistive Device: 2 wheeled walker (FWW) Safety Issues: step length decreased Impairments: strength decreased, impaired balance Gait Gait Comments: Antalgic gait on the right. Level of Marathon: stand by assist Assistive Device: 2 wheeled walker (FWW) Distance (feet): 150 Additional Documentation: safety Safety Issues: step length decreased Impairments: strength decreased Balance Balance Comments: Standing balance with FWW. Sitting Balance: Static: good balance Sitting Balance: Dynamic: fair balance Standing Balance: Static: good balance Standing Balance: Dynamic: fair balance Goals Reflects last filed data and may be from multiple contributors. All Bed Mobility Goal Most Recent Value LTG Status met at 05/17/2019 0808 LTG Marathon Level modified independent at 05/17/2019 0808 LTG Assistive Device none at 05/17/2019 0808 All Transfers Goal Most Recent Value LTG Status met at 05/17/2019 0808 LTG Marathon Level modified independent at 05/17/2019 0808 LTG Assistive Device 2 wheeled walker (FWW) at 05/17/2019 0808 Gait Goal Most Recent Value LTG Status progressing at 05/17/2019 0808 LTG Marathon Level stand by assist at 05/17/2019 0808 LTG Assistive Device 2 wheeled walker (FWW) at 05/17/2019 0808 LTG Distance (feet) 150 at 05/17/2019 0808 LTG Comments Improved weight bearing RLE during gait with FWW. at 05/17/2019 0808 lan of Franko Mace MSW - 05/17/2019 8:26 AM PDTCM met with pt who agreed to SNF placement for rehab. Referrals were faxed yesterday. CM spoke with Ladi at [facility] who stated they curr ently have no male beds available. CM will continue working on discharge planning. Franko Ann TREATMENT COORDINATOR lan of Marifer Ford RN - 05/17/2019 5:24 AM PDT Problem: Adult Inpatient Plan of Care Goal: Readiness for Transition of Care Outcome: Ongoing, progressing Plan of care reviewed with patient, all questions answered. Patient is cooperative and agre eable to going to SNF. Problem: Pain Acute Goal: Optimal Pain Control Outcome: Ongoing, progressing PRN [place] given before bed with zofran after pt was assisted from recliner to bed. Leg mikaela ins elevated on pillows with ice packs changed PRN. Problem: Wound Goal: Optimal Wound Healing Outcome: Ongoing, progressing Dressing from stacker and sorter operator remains in place, scant old drainage. lan of Care - DeanaYolette RN - 05/16/2019 3:30 PM PDTCare Management Initial Assessment Readmission Risk: HIGH Status Prior to Admission or Illness Arrival From: Home Lives With: alone Living Arrangements: apartment Caregiver For: no one Patient s Caregiver: Independent Functional Status: Lives alone and is independent. He sometimes uses a cane. Caregiving Concerns: Has a aide 3 dys/wk, 20 hrs/mth. Home Accessibility: Easy access Transportation Available: none Able to return to prior living: other (see comments)(Pt will need rehab before returning h ome.) Care Management Concerns Readmission Within Last 30 Days: no previous admission in last 30 days PCP: Mireya Pack NP Contact Information Family Contact Information: Name: Sammi Kohler (Former [id number]) DC Needs Assessment Current Outpt/Agency/Support Groups: homecare agency (specify level of care)(Aide 3 dys/wk ) Community Agency Name: [facility] Anticipated Changes Related to Illness: inability to care for self Concerns to be Addressed: home safety concerns Services Anticipated at Discharge: none Equipment Used at Home: cane, straight, single point Equipment Needed after Discharge: walker, standard Pharmacy/Medication Needs: Rx Pharmacy Transportation Needs: other (see comments)(Pt may need assistance with transportation.) Initial Plan Anticipated Discharge Disposition: alf facility Expected DC Date: other (see comments)(Pt will need rehab before returning home.) Steps Taken Toward Discharge: Initial assessment done. Next Steps: Referral sent MAURO and Dionne Notes: Met with pt, explained CM's role and discussed discharge planning. Pt lives alone, is independent at baseline and uses a cane. He is part of the [employer], foster care case manager is Elizabeth doan [phone]. He receives 20 hrs/mth, aide comes in 3 dys/wk. He has 3 siblings, all live out of town. He is from his 1st and 2nd is . His 40 yo son is handicapped and lives with his former [id number]. He is not participating in outpatient medical services, no blood thinners/home oxygen/cpap/ dialysis/home health. Electronically signed: YOLETTE LEBLANC RN 05/16/2019 3:32 PM lan of Care - Song oteros, Jennifer Calixto RN - 05/16/2019 12:31 PM PDT Problem: Fall Injury Risk Goal: Absence of Fall and Fall-Related Injury Outcome: Ongoing, progressing Patient's room by nurses station. Calls appropriately. Problem: Adult Inpatient Plan of Care Goal: Plan of Care Review Outcome: Ongoing, progressing Plan discussed with patient, verbalizes understanding. Problem: Pain Acute Goal: Optimal Pain Control Outcome: Ongoing, progressing Patient pain controlled, PRN meds available. lan of Randa Pacheco, PT - 05/16/2019 10:44 AM PDTFormatt ing of this note might be different from the original. Physical Therapy Initial Evaluation Note Recommended discharge disposition: alf facility Post discharge physical therapy recommendation: outpatient therapy Equipment Recommendations: 2 wheeled walker (FWW) Barriers to community-based discharge Cognitive Impairment, Physical Impairment, and Fall risk Planned Interventions: gait training with least restrictive assistive device. Recommended Frequency: 5 times/wk for days with reassessment due by 05/23/19 Summary: Patient agreed to PT evaluation. He had a large hematoma on right knee. X-ray and CT were negative for knee fracture. He is intellectually disabled and had difficulty unders tanding WBAT. He does not have a FWW at home. He requested placement in SNF. Patient has a h istory of falls and is a high risk for falling. Functional Level Prior Prior Functional Level Comment: Lives alone and is independent. He sometimes uses a cane. Precautions Precautions/Limitations: no known precautions/limitations, falls Right Lower Extremity Weight-Bearing: weight-bearing as tolerated Cognitive Assessment Additional Documentation: follows commands/answers questions, reasoning, executive function skills Speech: spontaneous Follows Commands/Answers Questions: needs increased time Executive Function Skills: mild impairment Reasoning: mild impairment Impairments Found (describe specific impairments): gait, locomotion, and balance Bed Mobility Additional Documentation: supine to/from sit Assistive Device: HOB elevated Supine to Sit, Level of Marathon: supervised Sit to Supine, Level of Marathon: not tested Safety Issues: cognitive deficits limit understanding Impairments: strength decreased Transfers Additional Documentation: sit to/from stand, bed to/from chair Bed-Chair, Level of Marathon: contact guard assist Chair-Bed, Level of Marathon: not tested Dhf-Izbae-Pxy, Assistive Device: 2 wheeled walker (FWW) Sit-Stand, Level of Marathon: contact guard assist Stand-Sit, Level of Marathon: not tested Fbi-[id number]-[id number], Assistive Device: 2 wheeled walker (FWW) Safety Issues: step length decreased, weight-shifting ability decreased Gait Level of Marathon: contact guard assist Assistive Device: 2 wheeled walker (FWW) Distance (feet): 30 Additional Documentation: safety, impairments Safety Issues: step length decreased, weight-shifting ability decreased Impairments: strength decreased Balance Sitting Balance: Static: good balance Sitting Balance: Dynamic: fair balance Standing Balance: Static: good balance Standing Balance: Dynamic: poor balance Goals Reflects last filed data and may be from multiple contributors. All Bed Mobility Goal Most Recent Value LTG Status new at 05/16/2019 1002 LTG Marathon Level modified independent at 05/16/2019 1002 LTG Assistive Device none at 05/16/2019 1002 All Transfers Goal Most Recent Value LTG Status new at 05/16/2019 1002 LTG Marathon Level modified independent at 05/16/2019 1002 LTG Assistive Device 2 wheeled walker (FWW) at 05/16/2019 1002 Gait Goal Most Recent Value LTG Status new at 05/16/2019 1002 LTG Marathon Level modified independent at 05/16/2019 1002 LTG Assistive Device 2 wheeled walker (FWW) at 05/16/2019 1002 LTG Distance (feet) 150 at 05/16/2019 1002 LTG Comments verbal cues to try and increase WB RLE instead of hopping. at 05/16/2019 1002 lan of Care - Comfort soler, Romie Ga MD - 05/16/2019 9:52 AM PDTpatient with injury to knee with large hematoma. Cleopatra prabhakar is on eliquis. There are no fractures. Would not recommend surgical management. Ice, c ompression, immobilization with knee immobilizer anad PT/OT. Follow with Dr. Trent in 1- 3 weeks. Please contact me directly if further issues arise. [phone] signed by Konstantin Trent MD at 05/16/2019 9:55 AM PDTPlan of Care - Marifer Brooke RN - 5:15 AM PDT Problem: Fall Injury Risk Goal: Absence of Fall and Fall-Related Injury Outcome: Ongoing, progressing Pt has remained free from falls or other injury this shift. Pt calls PRN, does not overesti mate ability or attempt to get out of bed. Fall risk sign on doorframe. Pt roomed near unit station. Problem: Pain Acute Goal: Optimal Pain Control Outcome: Ongoing, progressing Patient assessed for pain using appropriate pain scale, PRN norco administered with relief. Pt states worst pain is in R knee, ice bags applied and leg elevated on pillows. Pt denies numbness and tingling at this time, spontaneously resolved after returning from C T. Neuro assessment continues to be benign. documented in this encounter Plan of Treatment +--------+ + + + + | Date | Type | Specialty | Care Team | Description | +--------+ + + + + | 10/16/ | Anti-coag | Anticoagulation | Brittany Zaragoza | | 2019 | visit | | [address] | | | | | | [facility] [place] | | | | | | [place] [address] | | | | | | [phone] | | | | | | | | +--------+ + + + + + +------+--------+ + + | Name | Type | Priori | Associated Diagnoses | Date/Time | | | | ty | | | + +------+--------+ + + | ED INFORMATION | COLTON | Routin | | 05/15/2019 8:19 PM | | EXCHANGE | | e | | PDT | + +------+--------+ + + documented as of this encounter Procedures + +--------+ + + + | Procedure Name | Priori | Date/Time | Associated Diagnosis | Comments | | | ty | | | | + +--------+ + + + | POC GLUCOSE (NON | Routin | 05/18/2019 | | Results for this | | ORD) | e | 10:40 AM | | procedure are in the | | | | PDT | | results section. | + +--------+ + + + | POC GLUCOSE (NON | Routin | 05/18/2019 | | Results for this | | ORD) | e | 6:27 AM | | procedure are in the | | | | PDT | | results section. | + +--------+ + + + | CBC NO DIFFERENTIAL | Timed | 05/18/2019 | | Results for this | | | | 5:01 AM | | procedure are in the | | | | PDT | | results section. | + +--------+ + + + | POC GLUCOSE (NON | Routin | 05/17/2019 | | Results for this | | ORD) | e | 9:36 PM | | procedure are in the | | | | PDT | | results section. | + +--------+ + + + | POC GLUCOSE (NON | Routin | 05/17/2019 | | Results for this | | ORD) | e | 4:19 PM | | procedure are in the | | | | PDT | | results section. | + +--------+ + + + | POC GLUCOSE (NON | Routin | 05/17/2019 | | Results for this | | ORD) | e | 10:25 AM | | procedure are in the | | | | PDT | | results section. | + +--------+ + + + | POC GLUCOSE (NON | Routin | 05/17/2019 | | Results for this | | ORD) | e | 6:48 AM | | procedure are in the | | | | PDT | | results section. | + +--------+ + + + | CBC NO DIFFERENTIAL | Timed | 05/17/2019 | | Results for this | | | | 4:40 AM | | procedure are in the | | | | PDT | | results section. | + +--------+ + + + | HEMOGLOBIN A1C | Routin | 05/17/2019 | | Results for this | | | e | 4:40 AM | | procedure are in the | | | | PDT | | results section. | + +--------+ + + + | POC GLUCOSE (NON | Routin | 05/16/2019 | | Results for this | | ORD) | e | 8:16 PM | | procedure are in the | | | | PDT | | results section. | + +--------+ + + + | POC GLUCOSE (NON | Routin | 05/16/2019 | | Results for this | | ORD) | e | 4:02 PM | | procedure are in the | | | | PDT | | results section. | + +--------+ + + + | POC GLUCOSE (NON | Routin | 05/16/2019 | | Results for this | | ORD) | e | 11:33 AM | | procedure are in the | | | | PDT | | results section. | + +--------+ + + + | POC GLUCOSE (NON | Routin | 05/16/2019 | | Results for this | | ORD) | e | 7:23 AM | | procedure are in the | | | | PDT | | results section. | + +--------+ + + + | CBC WITH | Routin | 05/16/2019 | | Results for this | | DIFFERENTIAL | e | 4:29 AM | | procedure are in the | | | | PDT | | results section. | + +--------+ + + + | MAGNESIUM | Routin | 05/16/2019 | | Results for this | | | e | 4:29 AM | | procedure are in the | | | | PDT | | results section. | + +--------+ + + + | COMPREHENSIVE | Routin | 05/16/2019 | | Results for this | | METABOLIC PANEL | e | 4:29 AM | | procedure are in the | | | | PDT | | results section. | + +--------+ + + + | CT HEAD WO CONTRAST | Routin | 05/16/2019 | | Results for this | | | e | 12:44 AM | | procedure are in the | | | | PDT | | results section. | + +--------+ + + + | POC GLUCOSE (NON | Routin | 05/16/2019 | | Results for this | | ORD) | e | 12:01 AM | | procedure are in the | | | | PDT | | results section. | + +--------+ + + + | ECG 12 LEAD | STAT | 05/15/2019 | | Results for this | | | | 9:46 PM | | procedure are in the | | | | PDT | | results section. | + +--------+ + + + | CT KNEE RIGHT WO | [facility] | 05/15/2019 | | Results for this | | CONTRAST | | 9:19 PM | | procedure are in the | | | | PDT | | results section. | + +--------+ + + + | XR PELVIS 1 OR 2 VW | [facility] | 05/15/2019 | | Results for this | | | | 8:39 PM | | procedure are in the | | | | PDT | | results section. | + +--------+ + + + | XR CHEST AP PORTABLE | [facility] | 05/15/2019 | | Results for this | | | | 8:39 PM | | procedure are in the | | | | PDT | | results section. | + +--------+ + + + | XR KNEE RIGHT 1 - 2 | [facility] | 05/15/2019 | | Results for this | | VW | | 8:39 PM | | procedure are in the | | | | PDT | | results section. | + +--------+ + + + | TROPONIN I | STAT | 05/15/2019 | | Results for this | | | | 8:24 PM | | procedure are in the | | | | PDT | | results section. | + +--------+ + + + | PTT | STAT | 05/15/2019 | | Results for this | | | | 8:24 PM | | procedure are in the | | | | PDT | | results section. | + +--------+ + + + | PROTIME INR | STAT | 05/15/2019 | | Results for this | | | | 8:24 PM | | procedure are in the | | | | PDT | | results section. | + +--------+ + + + | CBC WITH | STAT | 05/15/2019 | | Results for this | | DIFFERENTIAL | | 8:24 PM | | procedure are in the | | | | PDT | | results section. | + +--------+ + + + | TYPE AND SCREEN | STAT | 05/15/2019 | | Results for this | | | | 8:24 PM | | procedure are in the | | | | PDT | | results section. | + +--------+ + + + | B TYPE NATRIURETIC | Routin | 05/15/2019 | | Results for this | | PEPTIDE | e | 8:24 PM | | procedure are in the | | | | PDT | | results section. | + +--------+ + + + | CK TOTAL | STAT | 05/15/2019 | | Results for this | | | | 8:24 PM | | procedure are in the | | | | PDT | | results section. | + +--------+ + + + | COMPREHENSIVE | STAT | 05/15/2019 | | Results for this | | METABOLIC PANEL | | 8:24 PM | | procedure are in the | | | | PDT | | results section. | + +--------+ + + + | ED INFORMATION | Routin | 05/15/2019 | | | | EXCHANGE | e | 8:19 PM | | | | | | PDT | | | + +--------+ + + + +---+--------+ | | | | | Proced | | | ure | | | Note - | | | Richard, | | | Lab In | | | | | | Hlseve | | | n - | | | 04/08/ | | | 2020 | | | 8:20 | | | PM PDT | | [...] | | | FICATI | | | ON?04/ | | | 08/202 | | | 0 | | | 20:19? | | | GR, | | | NORAH | | | | | | M?MRN: | | | | | | [id number] | | | [id number] | | | riteri | | | [...] | | 18 0 | | | [facility] | | | s | | | Medica | | | l | | | Center | | | 9 0 | | | [facility] | | | sd | | | Commun | | | ity | | | Hospit | | | al 2 0 | | | Total | | [...] | | | int | | | Apr 8, | | | 2020 | | | [facility] | | | | | | Region | | | al | | | [facility] | | | [place] | | | [place] | | | Emerge | | | ncy | | | Leg | | | Deform | | | ity | | | Fall | | | Apr | | | 6, | | | 2020 | | [...] | | s M.C. | | | [place] | | | [place] | | | Emerge | | | ncy | | | Chief | | | Compla | | | int: | | | ELEVAT | | | ED | | | BLOOD | | | SUGAR | | | Dec | | | 27, | | | 2019 | | | [facility] | | | s [facility] | | | [place] | | | [place] | | | Emerge | | | ncy | | | Chief | | | Compla | | | int: | | | DIZZY | | | Dec | | | [...] ension | | | | | | Headac | | | he | | | (Adult | | | - New | | | Onset | | | Or | | | New | | | Sympto | | | ms) | | | | | | Dizzin | | | ess | | | | | | Headac | | | he | | | Dec 5, | | [...] | | | ess | | | Recent | | | [...] | | | [place] | | | Press Pipe Inspector | | | al | | | [...] | | | MIREYA, | | | SCREEDMAN | | | Nurse | | | [...] | | | /notif | | | [id number] | | | [id number] | | | [id number] | | | [id number] | | | [id number] | | | [id number] | | | 94 | | | PLEASE | | | [...] documented in this encounter Results POC Glucose (05/18/2019 10:40 AM PDT) + + + + + + | Component | Value | Ref Range | Performed | Pathologist | | | | | At | Signature | + + + + + + | Glucose, | 181 (H)Comment: Testing | 65 - 99 mg/dL | [facility] | | | POC | performed at [facility] | | [facility]ATORY | | | | [address];[place] | | | | | | [address] | | | | + + + + + + + + | Specimen | + + | | + + + + + + + | Performing | Address | City/State/Zipcode | Phone Number | | Organization | | | | + + + + + | [facility] | [address] | [place] [address] | [phone] | + + + + + POC Glucose (05/18/2019 6:27 AM PDT) + + + + + + | Component | Value | Ref Range | Performed | Pathologist | | | | | At | Signature | + + + + + + | Glucose, | 165 (H)Comment: Testing | 65 - 99 mg/dL | [facility] | | | POC | performed at [facility] | | LABORATORY | | | | [address];[place] | | | | | | [address] | | | | + + + + + + + + | Specimen | + + | | + + + + + + + | Performing | Address | City/State/Zipcode | Phone Number | | Organization | | | | + + + + + | [facility] | [address] | [place] [address] | [phone] | + + + + + CBC no Differential (05/18/2019 5:01 AM PDT) + + + + + + | Component | Value | Ref Range | Performed | Pathologist | | | | | At | Signature | + + + + + + | WBC | 10.82 | 3.80 - 11.00 | [facility] | | | | | K/uL | LABORATORY | | + + + + + + | Red Blood | 4.01 (L) | 4.20 - 5.70 | [facility] | | | Cells | | M/uL | LABORATORY | | + + + + + + | Hemoglobin | 11.4 (L) | 13.2 - 17.0 | [facility] | | | | | g/dL | LABORATORY | | + + + + + + | Hematocrit | 34.1 (L) | 39.0 - 50.0 % | [facility] | | | | | | LABORATORY | | + + + + + + | MCV | 85.0 | 80.0 - 100.0 fl | [facility] | | | | | | LABORATORY | | + + + + + + | MCH | 28.4 | 27.0 - 34.0 pg | [facility] | | | | | | LABORATORY | | + + + + + + | MCHC | 33.4 | 32.0 - 35.5 | [facility] | | | | | g/dL | LABORATORY | | + + + + + + | RDW-SD | 41.7 | 37 - 53 fl | [facility] | | | | | | LABORATORY | | + + + + + + | Platelet | 207 | 150 - 400 K/uL | [facility] | | | Count | | | LABORATORY | | + + + + + + | MPV | 10.1Comment: NO NORMAL | fl | [facility] | | | | RANGE ESTABLISHEDTesting | | LABORATORY | | | | performed at [facility], [address] | [address] | [address], | | | | | | [place] [address] | | | | + + + + + + + + | Specimen | + + | Blood | + + + + + + + | Performing | Address | City/State/Zipcode | Phone Number | | Organization | | | | + + + + + | [facility] | [address] | [place] [address] | [phone] | + + + + + POC Glucose (05/17/2019 9:36 PM PDT) + + + + + + | Component | Value | Ref Range | Performed | Pathologist | | | | | At | Signature | + + + + + + | Glucose, | 199 (H)Comment: Testing | 65 - 99 mg/dL | [facility] | | | POC | performed at [facility] | | LABORATORY | | | | [address];[place] | | | | | | [address] | | | | + + + + + + + + | Specimen | + + | | + + + + + + + | Performing | Address | City/State/Zipcode | Phone Number | | Organization | | | | + + + + + | [facility] | [address] | [place] [address] | [phone] | + + + + + POC Glucose (05/17/2019 4:19 PM PDT) + + + + + + | Component | Value | Ref Range | Performed | Pathologist | | | | | At | Signature | + + + + + + | Glucose, | 157 (H)Comment: Testing | 65 - 99 mg/dL | [facility] | | | POC | performed at [facility] | | LABORATORY | | | | [address];[place], [place] | | | | | | [address] | | | | + + + + + + + + | Specimen | + + | | + + + + + + + | Performing | Address | City/State/Zipcode | Phone Number | | Organization | | | | + + + + + | [facility] | [address] | [place] [address] | [phone] | + + + + + POC Glucose (05/17/2019 10:25 AM PDT) + + + + + + | Component | Value | Ref Range | Performed | Pathologist | | | | | At | Signature | + + + + + + | Glucose, | 198 (H)Comment: Testing | 65 - 99 mg/dL | [facility] | | | POC | performed at [facility] | | LABORATORY | | | | [address];[place] | | | | | | [address] | | | | + + + + + + + + | Specimen | + + | | + + + + + + + | Performing | Address | City/State/Zipcode | Phone Number | | Organization | | | | + + + + + | [facility] | [address] | [place] [address] | [phone] | + + + + + POC Glucose (05/17/2019 6:48 AM PDT) + + + + + + | Component | Value | Ref Range | Performed | Pathologist | | | | | At | Signature | + + + + + + | Glucose, | 266 (H)Comment: Testing | 65 - 99 mg/dL | [facility] | | | POC | performed at [facility] | | LABORATORY | | | | [address];[place], [place] | | | | | | [address] | | | | + + + + + + + + | Specimen | + + | | + + + + + + + | Performing | Address | City/State/Zipcode | Phone Number | | Organization | | | | + + + + + | [facility] | [address] | [place] [address] | [phone] | + + + + + CBC no Differential (05/17/2019 4:40 AM PDT) + + + + + + | Component | Value | Ref Range | Performed | Pathologist | | | | | At | Signature | + + + + + + | WBC | 12.48 (H) | 3.80 - 11.00 | [facility] | | | | | K/uL | LABORATORY | | + + + + + + | Red Blood | 4.40 | 4.20 - 5.70 | [facility] | [...] + + + + | MCV | 84.1 | 80.0 - 100.0 fl | [facility] | | | | | | LABORATORY | | + + + + + + | MCH | 28.2 | 27.0 - 34.0 pg | [facility] | | | | | | LABORATORY | | + + + + + + | MCHC | 33.5 | 32.0 - 35.5 | [facility] | | | | | g/dL | LABORATORY | | + + + + + + | RDW-SD | 40.5 | 37 - 53 fl | [facility] | | | | | | LABORATORY | | + + + + + + | Platelet | 240 | 150 - 400 K/uL | [facility] | | | Count | | | LABORATORY | | + + + + + + | MPV | 9.8Comment: NO NORMAL | fl | [facility] | | | | RANGE ESTABLISHEDTesting | | LABORATORY | | | | performed at [facility] | | | | | | [address];[place] | | | | | | [address] | | | | + + + + + + + + | Specimen | + + | Blood | + + + + + + + | Performing | Address | City/State/Zipcode | Phone Number | | Organization | | | | + + + + + | [facility] | [address] | [place] [address] | [phone] | + + + + + Hemoglobin A1C (05/17/2019 4:40 AM PDT) + + + + + + | Component | Value | Ref Range | Performed | Pathologist | | | | | At | Signature | + + + + + + | Hemoglobin | 9.3 (H)Comment: HbA1c | 4.0 - 6.0 % | [facility] | | | A1c | method is certified by | | LABORATORY | | | | NG[employer] and traceable to | | | | | | the DCCT reference | | | | | | method.ADA guidelines | | | | | | indicate: | | | | | | Prediabetes: 5.7 - 6.4 | | | | | | Diabetes: >6.4 | | | | | | Glycemic control for | | | | | | adults with diabetes: | | | | | | <7.0 | | | | + + + + + + | Estimated | 220 (H)Comment: | <154 mg/dL | [facility] | | | Average | Estimated Average | | LABORATORY | | | Glucose | Glucose calculated from | | | | | | hemoglobin A1c by use of | | | | | | the ADArecommended | | | | | | formula.Testing | | | | | | performed at [facility], [address] | | | | | [facility], | | | | | | [place] [address] | | | | + + + + + + + + | Specimen | + + | Blood | + + + + + + + | Performing | Address | City/State/Zipcode | Phone Number | | Organization | | | | + + + + + | [facility] | [address] | [place] [address] | [phone] | + + + + + POC Glucose (05/16/2019 8:16 PM PDT) + + + + + + | Component | Value | Ref Range | Performed | Pathologist | | | | | At | Signature | + + + + + + | Glucose, | 173 (H)Comment: Testing | 65 - 99 mg/dL | [facility] | | | POC | performed at [facility] | | LABORATORY | | | | [address];[place] | | | | | | [address] | | | | + + + + + + + + | Specimen | + + | | + + + + + + + | Performing | Address | City/State/Zipcode | Phone Number | | Organization | | | | + + + + + | [facility] | [address] | [place] [address] | [phone] | + + + + + POC Glucose (05/16/2019 4:02 PM PDT) + + + + + + | Component | Value | Ref Range | Performed | Pathologist | | | | | At | Signature | + + + + + + | Glucose, | 212 (H)Comment: Testing | 65 - 99 mg/dL | [facility] | | | POC | performed at [facility] | | LABORATORY | | | | [address];[place] | | | | | | [address] | | | | + + + + + + + + | Specimen | + + | | + + + + + + + | Performing | Address | City/State/Zipcode | Phone Number | | Organization | | | | + + + + + | [facility] | [address] | [place] [address] | [phone] | + + + + + POC Glucose (05/16/2019 11:33 AM PDT) + + + + + + | Component | Value | Ref Range | Performed | Pathologist | | | | | At | Signature | + + + + + + | Glucose, | 190 (H)Comment: Testing | 65 - 99 mg/dL | [facility] | | | POC | performed at [facility] | | LABORATORY | | | | [address];[place], [place] | | | | | | [address] | | | | + + + + + + + + | Specimen | + + | | + + + + + + + | Performing | Address | City/State/Zipcode | Phone Number | | Organization | | | | + + + + + | [facility] | [address] | [place] [address] | [phone] | + + + + + POC Glucose (05/16/2019 7:23 AM PDT) + + + + + + | Component | Value | Ref Range | Performed | Pathologist | | | | | At | Signature | + + + + + + | Glucose, | 251 (H)Comment: Testing | 65 - 99 mg/dL | [facility] | | | POC | performed at [facility] | | LABORATORY | | | | [address];[place], [place] | | | | | | [address] | | | | + + + + + + + + | Specimen | + + | | + + + + + + + | Performing | Address | City/State/Zipcode | Phone Number | | Organization | | | | + + + + + | [facility] | [address] | [place] [address] | [phone] | + + + + + Magnesium (05/16/2019 4:29 AM PDT) + + + + + + | Component | Value | Ref Range | Performed | Pathologist | | | | | At | Signature | + + + + + + | Magnesium | 1.8Comment: Testing | 1.7 - 2.4 mg/dL | [facility] | | | | performed at [facility], [address] | | LABORATORY | | | | [address], | | | | | | [place] [address] | | | | + + + + + + + + | Specimen | + + | Blood | + + + + + + + | Performing | Address | City/State/Zipcode | Phone Number | | Organization | | | | + + + + + | [facility] | [address] | [place] [address] | [phone] | + + + + + Comprehensive Metabolic Panel (05/16/2019 4:29 AM PDT) + + + + + + | Component | Value | Ref Range | Performed | Pathologist | | | | | At | Signature | + + + + + + | Na | 139 | 135 - 145 | [facility] | | | | | mmol/L | LABORATORY | | + + + + + + | K | 4.1 | 3.5 - 4.9 | [facility] | | | | | mmol/L | LABORATORY | | + + + + + + | Cl | 107 | 99 - 109 mmol/L | [facility] [...] + + + + | Glucose | 294 (H) | 65 - 99 mg/dL | [facility] | | | | | | LABORATORY | | + + + + + + | BUN | 19 | 8 - 25 mg/dL | [facility] | | | | | | LABORATORY | | + + + + + + | Creatinine | 0.9 | 0.70 - 1.30 | [facility] | | | | | mg/dL | LABORATORY | | + + + + + + | BUN/Creatin | 21 | | [facility] | | | ine Ratio | | | LABORATORY | | + + + + + + | Calcium | 9.2 | 8.5 - 10.5 | [facility] | | | | | mg/dL | LABORATORY | | + + + + + + | Protein, | 6.1 (L) | 6.3 - 8.2 g/dL | [facility] | | | Total | | | LABORATORY | | + + + + + + | Albumin | 2.5 (L) | 3.3 - 4.8 g/dL | [facility] | | | | | | LABORATORY | | + + + + + + | Globulin | 3.6 | 1.3 - 4.9 g/dL | [facility] | | | | | | LABORATORY | | + + + + + + | A/G Ratio | 0.7 (L) | 1.0 - 2.4 | [facility] | | | | | | LABORATORY | | + + + + + + | BILIRUBIN, | 0.4 | 0.1 - 1.5 mg/dL | [facility] | | | TOTAL | | | LABORATORY | | + + + + + + | ALK PHOS | 129 (H) | 35 - 115 U/L | [facility] | | | | | | LABORATORY | | + + + + + + | AST | 20 | 10 - 45 U/L | [facility] | | | | | | LABORATORY | | + + + + + + | ALT | 24 | 10 - 65 U/L | [facility] [...] | | | | | performed at [facility], [address] | | | | | [address], | | | | | | [place] [address] | | | | + + + + + + + + | Specimen | + + | Blood | + + + + + + + | Performing | Address | City/State/Zipcode | Phone Number | | Organization | | | | + + + + + | [facility] | [address] | [place] [address] | [phone] | + + + + + CBC with Differential (05/16/2019 4:29 AM PDT) + + + + + + | Component | Value | Ref Range | Performed | Pathologist | | | | | At | Signature | + + + + + + | WBC | 12.85 (H) | 3.80 - 11.00 | [facility] | | | | | K/uL | LABORATORY | | + + + + + + | Red Blood | 4.67 | 4.20 - 5.70 | [facility] | | | Cells | | M/uL | LABORATORY | | + + + + + + | Hemoglobin | 13.0 (L) | 13.2 - 17.0 | [facility] | | | | | g/dL | LABORATORY | | + + + + + + | Hematocrit | 39.1 | 39.0 - 50.0 % | [facility] | | | | | | LABORATORY | | + + + + + + | MCV | 83.7 | 80.0 - 100.0 fl | [facility] | | | | | | LABORATORY | | + + + + + + | MCH | 27.8 | 27.0 - 34.0 pg | [facility] | | | | | | LABORATORY | | + + + + + + | MCHC | 33.2 | 32.0 - 35.5 | [facility] | | | | | g/dL | LABORATORY | | + + + + + + | RDW-SD | 39.8 | 37 - 53 fl | [facility] | | | | | | LABORATORY | | + + + + + + | Platelet | 231 | 150 - 400 K/uL | [facility] | | | Count | | | LABORATORY | | + + + + + + | MPV | 9.7Comment: NO NORMAL | fl | [facility] | [...] + + + + | % | 57.80 | % | [facility] | | | Neutrophils | | | LABORATORY | | + + + + + + | IMMATURE | 0.50 | % | [facility] | | | GRANULOCYTE | | | LABORATORY | | + + + + + + | % | 25.20 | % | [facility] | | | Lymphocytes | | | LABORATORY | | + + + + + + | Monocyte % | 10.00 | % | [facility] | | | | | | LABORATORY | | + + + + + + | Eosinophils | 6.10 | % | [facility] | | | % | | | LABORATORY | | + + + + + + | Basophils % | 0.40 | % | [facility] | | | | | | LABORATORY | | + + + + + + | Neutrophils | 7.41 (H) | 1.90 - 7.40 | [facility] | | | , Absolute | | K/uL | LABORATORY | | + + + + + + | IMMATURE | 0.07Comment: NOTE NEW | 0.00 - 0.07 | [facility] | | | GRANS AB | REFERENCE RANGE | K/uL | LABORATORY | | + + + + + + | Absolute | 3.24 | 1.00 - 3.90 | [facility] | | | Lymphocytes | | K/uL | LABORATORY | | + + + + + + | Absolute | 1.29 (H) | 0.00 - 0.80 | [facility] | | | Monocytes | | K/uL | LABORATORY | | + + + + + + | Eosinophils | 0.79 (H) | 0.00 - 0.50 | [facility] | | | , Absolute | | K/uL | LABORATORY | | + + + + + + | Basophils, | 0.05Comment: Testing | 0.00 - 0.10 | [facility] | | | Absolute | performed at [facility], [address] | K/uL | LABORATORY | | | | [address], | | | | | | [place] [address] | | | | + + + + + + + + | Specimen | + + | Blood | + + + + + + + | Performing | Address | City/State/Zipcode | Phone Number | | Organization | | | | + + + + + | [facility] | [address] | [place] [address] | [phone] | + + + + + CT Head wo Contrast (05/16/2019 12:44 AM PDT) + + | Specimen | + + | | + + + + + | Impressions | Performed At | + + + | 1. No acute intracranial pathology. 2. Small right forehead scalp | [facility] | | contusion. No underlying fracture. Signed by: Margy | | | Gilberto Arevalo Sign Date/Time: 05/16/2019 2:15 AM | | + + + + + + | Narrative | Performed At | + + + | CT HEAD WITHOUT CONTRAST CLINICAL INFORMATION: Headache | [facility] | | after a fall. COMPARISON: CT HEAD WO CONTRAST (01/25/2019); MRI | | | ANGIOGRAM HEAD WO CONTRAST (01/04/2019); MRI BRAIN WO CONTRAST | | | (01/04/2019); PROCEDURE: Axial images were obtained through [...] mass lesion, or evidence of acute infarct. Mild | | | generalized cerebral volume loss, unchanged. Ventricles and | | | extra-axial fluid spaces: Normal. Paranasal sinuses and mastoid | | | air cells: Patchy opacification of several ethmoid air cells | | | bilaterally and the left frontal sinus. Mastoid air cells normal. | | | Calvarium and extracranial soft tissues: Right forehead small | | | contusion. No underlying calvarial fracture. Orbits: Imaged | | | portions of the orbits are normal. | | + + + + + | Procedure Note | + + | Richard, Rad Results In 05/16/2019 2:19 AM PDT | | CT HEAD WITHOUT CONTRAST | | | | CLINICAL INFORMATION: | | Headache after a fall. | | | | COMPARISON: | | CT HEAD WO CONTRAST (01/25/2019); MRI ANGIOGRAM HEAD WO CONTRAST | | (01/04/2019); MRI BRAIN WO CONTRAST (01/04/2019); | | | | [...] or evidence of acute infarct. | | Mild generalized cerebral volume loss, unchanged. | | | | Ventricles and extra-axial fluid spaces: Normal. | | | | Paranasal sinuses and mastoid air cells: Patchy opacification of | | several ethmoid air cells bilaterally and the left frontal sinus. | | Mastoid air cells normal. | | | | Calvarium and extracranial soft tissues: Right forehead small | | contusion. No underlying calvarial fracture. | | | | Orbits: Imaged portions of the orbits are normal. | | | | IMPRESSION: | | 1. No acute intracranial pathology. | | 2. Small right forehead scalp contusion. No underlying fracture. | | | | | | | | | | Signed by: Irina Ji James | | Sign Date/Time: 05/16/2019 2:15 AM | + + + +---------+ + + | Performing | Address | City/State/Zipcode | Phone Number | | Organization | | | | + +---------+ + + | [facility] | | | | + +---------+ + + POC Glucose (05/16/2019 12:01 AM PDT) + + + + + + | Component | Value | Ref Range | Performed | Pathologist | | | | | At | Signature | + + + + + + | Glucose, | 283 (H)Comment: Testing | 65 - 99 mg/dL | [facility] | | | POC | performed at [facility] | | LABORATORY | | | | [address];[place] | | | | | | [address] | | | | + + + + + + + + | Specimen | + + | | + + + + + + + | Performing | Address | City/State/Zipcode | Phone Number | | Organization | | | | + + + + + | [facility] | [address] | [place] [address] | [phone] | + + + + + ECG 12 lead (05/15/2019 9:46 PM PDT) + + + + + + | Component | Value | Ref Range | Performed | Pathologist | | | | | At | Signature | + + + + + + | VENTRICULAR | 77 | BPM | [facility] | | | RATE EKG | | | | | + + + + + + | ATRIAL RATE | 77 | BPM | [facility] | | [...] + + + + | Q-T | 420 | ms | [facility] | | | INTERVAL | | | | | + + + + + + | Q-T | 475 | ms | [facility] | | | INTERVAL | | | | | | (CORRECTED) | | | | | + + + + + + | P WAVE AXIS | 41 | degrees | [facility] | | + + + + + + | QRS AXIS | 56 | degrees | [facility] | | + + + + + + | T AXIS | 24 | degrees | [facility] | | + + + + + + | INTERPRETAT | Sinus rhythm with | | [facility] | | | ION TEXT | Premature atrial | | | | | | complexesPossible Left | | | | | | atrial | | | | | | enlargementNonspecific T | | | | | | wave | | | | | | abnormalityProlonged | | | | | | QTAbnormal ECGWhen | | | | | | compared with ECG of | | | | | | 13-APR-2019 | | | | | | 20:55,Premature atrial | | | | | | complexes are now | | | | | | PresentT wave inversion | | | | | | less evident in Inferior | | | | | | leadsQT has | | | | | | lengthenedThis ECG | | | | | | contains Unconfirmed | | | | | | Interpretation | | | | | | Statements. See ED | | | | | | Record for Physician | | | | | | Interpretation. | | | | | | Confirmed by MUSE READ | | | | | | ONLY, -COMPUTER ([id number]), | | | | | | publication editor Roberto Stevens | | | | | | Gonzalo ([id number]) on 05/16/2019 | | | | | | 2:42:15 AM | | | | + + [...] | | + +---------+ + + CT Knee Right wo Contrast (05/15/2019 9:19 PM PDT) + + | Specimen | + + | | + + + + + | Impressions | Performed At | + + + | 1. No acute fracture of the distal femur or proximal tibia/fibula. | [facility] | | 2. Large ovoid superficial soft tissue hematoma overlying the | | | anteromedial aspect of the distal thigh, centered above the knee | | | joint, with estimated volume of 100 cc. 3. Prepatellar soft tissue | | | swelling/edema. 4. Atherosclerotic vascular disease. | | | Signed by: Irina Man Brian Sign Date/Time: 05/15/2019 9:53 PM | | + + + + + + | Narrative | Performed At | + + + | CT LOWER EXTREMITY; WITHOUT CONTRAST (CPT) CT RIGHT KNEE | [facility] | | CLINICAL INFORMATION: Right knee trauma/pain after a fall. | | | COMPARISON: Right knee x-rays 05/15/2019. PROCEDURE: Volume CT | | | acquisition with multiplanar reconstructions. 3-D reformations | | | created on a separate workstation. At least one of the following | | | CT dose optimization techniques were used: Automated exposure | | | control; Adjustment of mA and/or kV according to patient size; Use of | | | iterative reconstruction technique. FINDINGS: 1. Distal Femur: | | | Intact. A large curvilinear ossification is density is seen at the | | | origin of the medial collateral ligament of the knee. 2. Patella: | | | Intact. 3. Proximal Tibia/Fibula: No acute fracture. Lateral | | | metallic fixation plate and multiple anchoring screws seen at the | | | proximal tibia metadiaphysis. 4. Joint Space: No knee joint | | | effusion. 5. Soft Tissue: A large ovoid hematoma is seen in the | | | superficial soft tissues overlying the anteromedial aspect of the | | | distal thigh, centered above the knee joint level, measuring | | | approximately 8.7 x 4.8 x 4.6 cm (coronal image 26 series 9 and | | | sagittal image 52 series 10). Sagittal reformat views show | | | fluid-fluid level within the hematoma (sagittal image 50-53, series | | | 10). Prepatellar soft tissue swelling/edema is also seen with | | | reticulation of the subcutaneous fat layer. Calcific | | | atherosclerotic plaque seen within the femoral artery and trifurcation | | | region. | | + + + + + | Procedure Note | + + | Richard, Rad Results In - 05/15/2019 9:56 PM PDT | | CT LOWER EXTREMITY; WITHOUT CONTRAST (CPT) | | | | CT RIGHT KNEE | | | | CLINICAL INFORMATION: | | Right knee trauma/pain after a fall. | | | | COMPARISON: | | Right knee x-rays 05/15/2019. | | | | PROCEDURE: | | Volume CT acquisition with multiplanar reconstructions. 3-D | | reformations created on a separate workstation. | | | | At least one of the following CT dose optimization techniques were | | used: Automated exposure control; Adjustment of mA and/or kV according | | to patient size; Use of iterative reconstruction technique. | | | | FINDINGS: | | 1. Distal Femur: Intact. A large curvilinear ossification is density | | is seen at the origin of the medial collateral ligament of the knee. | | 2. Patella: Intact. | | 3. Proximal Tibia/Fibula: No acute fracture. Lateral metallic fixation | | plate and multiple anchoring screws seen at the proximal tibia | | metadiaphysis. | | 4. Joint Space: No knee joint effusion. | | 5. Soft Tissue: A large ovoid hematoma is seen in the superficial soft | | tissues overlying the anteromedial aspect of the distal thigh, centered | | above the knee joint level, measuring approximately 8.7 x 4.8 x 4.6 cm | | (coronal image 26 series 9 and sagittal image 52 series 10). Sagittal | | reformat views show fluid-fluid level within the hematoma (sagittal | | image 50-53, series 10). Prepatellar soft tissue swelling/edema is | | also seen with reticulation of the subcutaneous fat layer. Calcific | | atherosclerotic plaque seen within the femoral artery and trifurcation | | region. | | | | IMPRESSION: | | 1. No acute fracture of the distal femur or proximal tibia/fibula. | | 2. Large ovoid superficial soft tissue hematoma overlying the | | anteromedial aspect of the distal thigh, centered above the knee joint, | | with estimated volume of 100 cc. | | 3. Prepatellar soft tissue swelling/edema. | | 4. Atherosclerotic vascular disease. | | | | | | | | | | Signed by: Irina Man Brian | | Sign Date/Time: 05/15/2019 9:53 PM | + + + +---------+ + + | Performing | Address | City/State/Zipcode | Phone Number | | Organization | | | | + +---------+ + + | [facility] | | | | + +---------+ + + XR Knee Right 1 - 2 Vw (05/15/2019 8:39 PM PDT) + + | Specimen | + + | | + + + + + | Impressions | Performed At | + + + | 1. Old healed fracture deformities of the pelvis. No acute pelvic | [facility] | | or proximal femur fracture identified. 2. Prominent prepatellar soft | | | tissue swelling of the right knee. No acute fracture or | | | dislocation. 3. Right knee joint effusion. Signed by: | | | Irina Man, Jose Sign Date/Time: 05/15/2019 8:52 PM | | + + + + + + | Narrative | Performed At | + + + | PELVIS ONE OR TWO VIEWS; RIGHT KNEE ONE OR TWO VIEWS | [facility] | | CLINICAL INFORMATION: Right leg pain after Fall. Right leg deformity. | | | COMPARISON: XR ABDOMEN SUPINE AND UPRIGHT WITH 1 VW CHEST | | | (11/15/2018); CT ABDOMEN PELVIS W CONTRAST (02/25/2016); FINDINGS: | | | Pelvis: Normal osseous mineralization. Subtle contour | | | abnormalities of the pelvis in the region of the right superior | | | inferior pubic rami, unchanged from CT scan of 2017, compatible with | | | old healed fractures. The femoral head and neck regions appear | | | intact. Right knee: L-shaped metal fixation plate and multiple | | | anchoring screws overlies the lateral aspect of the proximal tibia | | | metadiaphysis. Metallic fixation hardware appears intact. No acute | | | fracture or dislocation. Prominent prepatellar soft tissue swelling | | | noted. There is distention of the suprapatellar bursa, compatible | | | with knee joint effusion. | | + + + + + | Procedure Note | + + | Richard, Rad Results In - 05/15/2019 8:56 PM PDT | | PELVIS ONE OR TWO VIEWS; | | RIGHT KNEE ONE OR TWO VIEWS | | | | CLINICAL INFORMATION: | | Right leg pain after Fall. Right leg deformity. | | | | COMPARISON: | | XR ABDOMEN SUPINE AND UPRIGHT WITH 1 VW CHEST (11/15/2018); CT ABDOMEN | | PELVIS W CONTRAST (02/25/2016); | | | | FINDINGS: | | Pelvis: Normal osseous mineralization. Subtle contour abnormalities of | | the pelvis in the region of the right superior inferior pubic rami, | | unchanged from CT scan of 2017, compatible with old healed fractures. | | The femoral head and neck regions appear intact. | | | | Right knee: L-shaped metal fixation plate and multiple anchoring screws | | overlies the lateral aspect of the proximal tibia metadiaphysis. | | Metallic fixation hardware appears intact. No acute fracture or | | dislocation. Prominent prepatellar soft tissue swelling noted. There | | is distention of the suprapatellar bursa, compatible with knee joint | | effusion. | | | | IMPRESSION: | | 1. Old healed fracture deformities of the pelvis. No acute pelvic or | | proximal femur fracture identified. | | 2. Prominent prepatellar soft tissue swelling of the right knee. No | | acute fracture or dislocation. | | 3. Right knee joint effusion. | | | | | | | | | | Signed by: Irina Man, Jose | | Sign Date/Time: 05/15/2019 8:52 PM | + + + +---------+ + + | Performing | Address | City/State/[facility] | Phone Number | | Organization | | | | + +---------+ + + | [facility] | | | | + +---------+ + + XR Pelvis 1 or 2 Vw (05/15/2019 8:39 PM PDT) + + | Specimen | + + | | + + + + + | Impressions | Performed At | + + + | 1. Old healed fracture deformities of the pelvis. No acute pelvic | [facility] | | or proximal femur fracture identified. 2. Prominent prepatellar soft | | | tissue swelling of the right knee. No acute fracture or | | | dislocation. 3. Right knee joint effusion. Signed by: | | | Irina Man, Jose Sign Date/Time: 05/15/2019 8:52 PM | | + + + + + + | Narrative | Performed At | + + + | PELVIS ONE OR TWO VIEWS; RIGHT KNEE ONE OR TWO VIEWS | [facility] | | CLINICAL INFORMATION: Right leg pain after Fall. Right leg deformity. | | | COMPARISON: XR ABDOMEN SUPINE AND UPRIGHT WITH 1 VW CHEST | | | (11/15/2018); CT ABDOMEN PELVIS W CONTRAST (02/25/2016); FINDINGS: | | | Pelvis: Normal osseous mineralization. Subtle contour | | | abnormalities of the pelvis in the region of the right superior | | | inferior pubic rami, unchanged from CT scan of 2017, compatible with | | | old healed fractures. The femoral head and neck regions appear | | | intact. Right knee: L-shaped metal fixation plate and multiple | | | anchoring screws overlies the lateral aspect of the proximal tibia | | | metadiaphysis. Metallic fixation hardware appears intact. No acute | | | fracture or dislocation. Prominent prepatellar soft tissue swelling | | | noted. There is distention of the suprapatellar bursa, compatible | | | with knee joint effusion. | | + + + + + | Procedure Note | + + | Richard, Rad Results In - 05/15/2019 8:56 PM PDT | | PELVIS ONE OR TWO VIEWS; | | RIGHT KNEE ONE OR TWO VIEWS | | | | CLINICAL INFORMATION: | | Right leg pain after Fall. Right leg deformity. | | | | COMPARISON: | | XR ABDOMEN SUPINE AND UPRIGHT WITH 1 VW CHEST (11/15/2018); CT ABDOMEN | | PELVIS W CONTRAST (02/25/2016); | | | | FINDINGS: | | Pelvis: Normal osseous mineralization. Subtle contour abnormalities of | | the pelvis in the region of the right superior inferior pubic rami, | | unchanged from CT scan of 2016, compatible with old healed fractures. | | The femoral head and neck regions appear intact. | | | | Right knee: L-shaped metal fixation plate and multiple anchoring screws | | overlies the lateral aspect of the proximal tibia metadiaphysis. | | Metallic fixation hardware appears intact. No acute fracture or | | dislocation. Prominent prepatellar soft tissue swelling noted. There | | is distention of the suprapatellar bursa, compatible with knee joint | | effusion. | | | | IMPRESSION: | | 1. Old healed fracture deformities of the pelvis. No acute pelvic or | | proximal femur fracture identified. | | 2. Prominent prepatellar soft tissue swelling of the right knee. No | | acute fracture or dislocation. | | 3. Right knee joint effusion. | | | | | | | | | | Signed by: Irina Man Brian | | Sign Date/Time: 05/15/2019 8:52 PM | + + + +---------+ + + | Performing | Address | City/State/Zipcode | Phone Number | | Organization | | | | + +---------+ + + | [facility] | | | | + +---------+ + + XR Chest AP Portable (05/15/2019 8:39 PM PDT) + + | Specimen | + + | | + + + + + | Impressions | Performed At | + + + | Negative portable chest. Signed by: Irina Man Brian | [facility] | | Sign Date/Time: 05/15/2019 8:47 PM | | + + + + + + | Narrative | Performed At | + + + | CHEST PORTABLE ONE VIEW CLINICAL INFORMATION: Fall. Right | [facility] | | leg pain after Fall. Right leg deformity. COMPARISON: XR CHEST PA | | | AND LATERAL (04/13/2019); XR CHEST PA AND LATERAL (04/04/2019); XR | | | CHEST PA AND LATERAL (03/21/2019); FINDINGS: Supine AP portable | | | chest 05/15/2019 at 2017 hours. The lungs are symmetrically | | | expanded. No evidence of pneumothorax, pleural effusion, or focus | | | of airspace consolidation. The heart and mediastinal contours and | | | pulmonary vessels are normal. Osseous structures appear intact. | | + + + + + | Procedure Note | + + | Richard, Rad Results In - 05/15/2019 8:51 PM PDT | | CHEST PORTABLE ONE VIEW | | | | CLINICAL INFORMATION: | | Fall. Right leg pain after Fall. Right leg deformity. | | | | COMPARISON: | | XR CHEST PA AND LATERAL (04/13/2019); XR CHEST PA AND LATERAL | | (04/04/2019); XR CHEST PA AND LATERAL (03/21/2019); | | | | FINDINGS: | | Supine AP portable chest 05/15/2019 at 2017 hours. | | | | The lungs are symmetrically expanded. No evidence of pneumothorax, | | pleural effusion, or focus of airspace consolidation. The heart and | | mediastinal contours and pulmonary vessels are normal. Osseous | | structures appear intact. | | | | IMPRESSION: | | Negative portable chest. | | | | | | | | Signed by: Irina Man Brian | | Sign Date/Time: 05/15/2019 8:47 PM | + + + +---------+ + + | Performing | Address | City/State/Zipcode | Phone Number | | Organization | | | | + +---------+ + + | [facility] | | | | + +---------+ + + B Type Natriuretic Peptide (05/15/2019 8:24 PM PDT) + + + + + + | Component | Value | Ref Range | Performed | Pathologist | | | | | At | Signature | + + + + + + | BNP | 37.14Comment: Testing | 0 - 100 pg/mL | [facility] | | | | performed at [facility] | | LAB[facility]ATORY | | | | [address];[place] | | | | | | [address] | | | | + + + + + + + + | Specimen | + + | | + + + + + + + | Performing | Address | City/State/Zipcode | Phone Number | | Organization | | | | + + + + + | [facility] | [address] | [place] [address] | [phone] | + + + + + CK Total (05/15/2019 8:24 PM PDT) + + + + + + | Component | Value | Ref Range | Performed | Pathologist | | | | | At | Signature | + + + + + + | CK TOTAL | 68Comment: Testing | 55 - 400 U/L | [facility] | | | | performed at [facility] | | LABORATORY | | | | [address];[place], [place] | | | | | | [address] | | | | + + + + + + + + | Specimen | + + | Blood | + + + + + + + | Performing | Address | City/State/Zipcode | Phone Number | | Organization | | | | + + + + + | [facility] | [address] | [place] [address] | [phone] | + + + + + Type and Screen (05/15/2019 8:24 PM PDT) + + + + + + | Component | Value | Ref Range | Performed | Pathologist | | | | | At | Signature | + + + + + + | ABO Rh | A POSITIVE | | [facility] | | | | | | LABORATORY | | + + + + + + | Antibody | NEGATIVE | | [facility] | | | Screen | | | LABORATORY | | + + + + + + | BB BAND | [id number] | | [facility] | | | | | | LABORATORY | | + + + + + + | BB BAND | Testing performed at | | [facility] | | | | [facility] | | LABORATORY | | | | [address];[place] [address] | | | | + + + + + + + + | Specimen | + + | Blood | + + + + + + + | Performing | Address | City/State/Zipcode | Phone Number | | Organization | | | | + + + + + | [facility] | [address] | [place] [address] | [phone] | + + + + + Troponin I (05/15/2019 8:24 PM PDT) + + + + + + | Component | Value | Ref Range | Performed | Pathologist | | | | | At | Signature | + + + + + + | Troponin I | 0.031Comment: 0.04 | 0.00 - 0.04 | [facility] [...] at | | | | | | [facility] [place] [address] | | | | | | Blvd;[place] [address] | | | | + + + + + + + + | Specimen | + + | Blood | + + + + + + + | Performing | Address | City/State/Zipcode | Phone Number | | Organization | | | | + + + + + | [facility] | [address] | [place] [address] | [phone] | + + + + + PTT (05/15/2019 8:24 PM PDT) + + + + + + | Component | Value | Ref Range | Performed | Pathologist | | | | | At | Signature | + + + + + + | PTT | 26Comment: Testing | 23 - 32 seconds | [facility] | | | | performed at [facility];[address] | | LABORATORY | | | | [address];[place], [place] | | | | | | [address] | | | | + + + + + + + + | Specimen | + + | Blood | + + + + + + + | Performing | Address | City/State/Zipcode | Phone Number | | Organization | | | | + + + + + | [facility] | [address] | [place] [address] | [phone] | + + + + + Protime INR (05/15/2019 8:24 PM PDT) + + + + + + | Component | Value | Ref Range | Performed | Pathologist | | | | | At | Signature | + + + + + + | INR | 0.9Comment: REFERENCE | | [facility] | | | [...] | | | | | performed at [facility] | | | | | | [facility];[place], [place] | | | | | | [address] | | | | + + + + + + + + | Specimen | + + | Blood | + + + + + + + | Performing | Address | City/State/Zipcode | Phone Number | | Organization | | | | + + + + + | [facility] | [address] | [place] [address] | [phone] | + + + + + Comprehensive Metabolic Panel (05/15/2019 8:24 PM PDT) + + + + + + | Component | Value | Ref Range | Performed | Pathologist | | | | | At | Signature | + + + + + + | Na | 139 | 135 - 145 | [facility] | | | | | mmol/L | LABORATORY | | + + + + + + | K | 3.1 (L) | 3.5 - 4.9 | [facility] [...] + + + | Anion Gap | 13 | 5 - 20 mmol/L | [facility] [...] + + + + | Creatinine | 0.84 | 0.70 - 1.30 | [facility] | | | | | mg/dL | LABORATORY | | + + + + + + | BUN/Creatin | 15 | | [facility] | | | ine Ratio | | | LABORATORY | | + + + + + + | Calcium | 9.7 | 8.5 - 10.5 | [facility] | | | | | mg/dL | LABORATORY | | + + + + + + | Protein, | 7.0 | 6.3 - 8.2 g/dL | [facility] | | | Total | | | LABORATORY | | + + + + + + | Albumin | 4.1 | 3.3 - 4.8 g/dL | [facility] [...] + + + | ALK PHOS | 162 (H) | 35 - 115 U/L | [facility] | | | | | | LABORATORY | | + + + + + + | AST | 22 | 10 - 45 U/L | [facility] | | | | | | LABORATORY | | + + + + + + | ALT | 22 | 10 - 65 U/L | [facility] | | | | | | LABORATORY | | + + + + + + | Estimated | >60Comment: GFR <60: | >60 | [facility] | | | GFR | CHRONIC KIDNEY [...] | | | | | performed at [facility] | | | | | | [facility];[place], [place] | | | | | | [address] | | | | + + + + + + + + | Specimen | + + | Blood | + + + + + + + | Performing | Address | City/State/Zipcode | Phone Number | | Organization | | | | + + + + + | [facility] | [address] | [place] [address] | [phone] | + + + + + CBC with Differential (05/15/2019 8:24 PM PDT) + + + + + + | Component | Value | Ref Range | Performed | Pathologist | | | | | At | Signature | + + + + + + | WBC | 12.52 (H) | 3.80 - 11.00 | [facility] | | | | | K/uL | LABORATORY | | + + + + + + | Red Blood | 5.63 | 4.20 - 5.70 | [facility] | | | Cells | | M/uL | LABORATORY | | + + + + + + | Hemoglobin | 15.9 | 13.2 - 17.0 | [facility] | | | | | g/dL | LABORATORY | | + + + + + + | Hematocrit | 46.7 | 39.0 - 50.0 % | [facility] | | | | | | LABORATORY | | + + + + + + | MCV | 82.9 | 80.0 - 100.0 fl | [facility] | | | | | | LABORATORY | | + + + + + + | MCH | 28.2 | 27.0 - 34.0 pg | [facility] | | | | | | LABORATORY | | + + + + + + | MCHC | 34.0 | 32.0 - 35.5 | [facility] | | | | | g/dL | LABORATORY | | + + + + + + | RDW-SD | 39.1 | 37 - 53 fl | [facility] | | | | | | LABORATORY | | + + + + + + | Platelet | 257 | 150 - 400 K/uL | [facility] | | | Count | | | LABORATORY | | + + + + + + | MPV | 9.3Comment: NO NORMAL | fl | [facility] | [...] + + + + | % | 49.40 | % | [facility] | | | Neutrophils | | | LABORATORY | | + + + + + + | IMMATURE | 0.70 | % | [facility] | | | GRANULOCYTE | | | LABORATORY | | + + + + + + | % | 31.90 | % | [facility] | | | Lymphocytes | | | LABORATORY | | + + + + + + | Monocyte % | 8.80 | % | [facility] | | | | | | LABORATORY | | + + + + + + | Eosinophils | 8.50 | % | [facility] | | | % | | | LABORATORY | | + + + + + + | Basophils % | 0.70 | % | [facility] | | | | | | LABORATORY | | + + + + + + | Neutrophils | 6.19 | 1.90 - 7.40 | [facility] | | | , Absolute | | K/uL | LABORATORY | | + + + + + + | IMMATURE | 0.09 (H)Comment: NOTE | 0.00 - 0.07 | [facility] | | | GRANS AB | NEW REFERENCE RANGE | K/uL | LABORATORY | | + + + + + + | Absolute | 3.99 (H) | 1.00 - 3.90 | [facility] | | | Lymphocytes | | K/uL | LABORATORY | | + + + + + + | Absolute | 1.10 (H) | 0.00 - 0.80 | [facility] | | | Monocytes | | K/uL | LABORATORY | | + + + + + + | Eosinophils | 1.06 (H) | 0.00 - 0.50 | [facility] | | | , Absolute | | K/uL | LABORATORY | | + + + + + + | Basophils, | 0.09Comment: Testing | 0.00 - 0.10 | [facility] | | | Absolute | performed at [facility] | K/uL | LABORATORY | | | | [facility];[place], [place] | | | | | | [address] | | | | + + + + + + + + | Specimen | + + | Blood | + + + + + + + | Performing | Address | City/State/Zipcode | Phone Number | | Organization | | | | + + + + + | [facility] | [address] | [place] [address] | [phone] | + + + + + documented in this encounter Visit Diagnoses + + | Diagnosis | + + | Fall from ground level - Primary | + + | Fall, initial encounter | + + | Traumatic hematoma of right knee, initial encounter | + + | Chronic anticoagulation Encounter for long-term (current) use of 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 | + + | Need for assistance due to unsteady gait | + + | WARD (obstructive sleep apnea) Obstructive sleep apnea (adult) (pediatric) | + + | COPD (chronic obstructive pulmonary disease) (HCC) Chronic airway obstruction, not | | elsewhere classified | + + | Paroxysmal atrial fibrillation (HCC) Atrial fibrillation | + + | HTN (hypertension) Unspecified essential hypertension | + + | Diabetes mellitus, type 2 Type II or unspecified type diabetes mellitus without | | mention of complication, not stated as uncontrolled | + + documented in this encounter Administered Medications + +--------+ +------+------+------+ | Medication Order | MAR | Action | Dose | Rate | Site | | | Action | Date | | | | + +--------+ +------+------+------+ | apixaban (ELIQUIS) tablet 5 mg | Given | 05/18/19 | 5 mg | | | | 5 mg, Oral, 2 TIMES DAILY, First | | 20 8:36 | | | | | dose on Joselyn 05/16/19 at 0030 | | AM PDT | | | | + +--------+ +------+------+------+ +-------+ +------+---+---+ | Given | 05/17/19 | 5 mg | | | | | 20 8:00 | | | | | | PM PDT | | | | +-------+ +------+---+---+ | Given | 05/17/19 | 5 mg | | | | | 20 8:41 | | | | | | AM PDT | | | | +-------+ +------+---+---+ +---+---+ | | | +---+---+ + +-------+ +------+---+---+ | ARIPiprazole (ABILIFY) tablet 5 | Given | 05/18/19 | 5 mg | | | | mg 5 mg, Oral, DAILY, First | | 20 8:36 | | | | | dose on Mon05/16/19 at 0900 | | AM PDT | | | | + +-------+ +------+---+---+ +-------+ +------+---+---+ | Given | 05/17/19 | 5 mg | | | | | 20 8:41 | | | | | | AM PDT | | | | +-------+ +------+---+---+ | Given | 05/16/19 | 5 mg | | | | | 20 8:20 | | | | | | AM PDT | | | | +-------+ +------+---+---+ +---+---+ | | | +---+---+ + +-------+ +-------+---+---+ | atorvaSTATin (LIPITOR) tablet | Given | 05/17/19 | 40 mg | | | | 40 mg 40 mg, Oral, NIGHTLY, | | 20 8:00 | | | | | First dose on Joselyn 05/16/19 at 0015 | | PM PDT | | | | + +-------+ +-------+---+---+ +-------+ +-------+---+---+ | Given | 05/16/19 | 40 mg | | | | | 20 9:20 | | | | | | PM PDT | | | | +-------+ +-------+---+---+ | Given | 05/16/19 | 40 mg | | | | | 20 12:26 | | | | | | AM PDT | | | | +-------+ +-------+---+---+ +---+---+ | | | +---+---+ + +-------+ +---------+---+---+ | budesonide-formoterol | Given | 05/18/19 | 2 puffs | | | | (SYMBICORT) 160-4.5 mcg/puff | | 20 8:33 | | | | | inhaler 2 puff 2 puff, | | AM PDT | | | | | Inhalation, 2 TIMES DAILY, First | | | | | | | dose on [facility] 05/16/19 at 0030, Shake | | | | | | | well. Use with spacer. Rinse | | | | | | | mouth after use., | | | | | | + +-------+ +---------+---+---+ +-------+ +---------+---+---+ | Given | 05/17/19 | 2 puffs | | | | | 20 8:00 | | | | | | PM PDT | | | | +-------+ +---------+---+---+ | Given | 05/17/19 | 2 puffs | | | | | 20 8:45 | | | | | | AM PDT | | | | +-------+ +---------+---+---+ +---+---+ | | | +---+---+ + +-------+ +---------+---+---+ | carvedilol (COREG) tablet 12.5 | Given | 05/18/19 | 12.5 mg | | | | mg 12.5 mg, Oral, 2 TIMES DAILY | | 20 8:34 | | | | | WITH BREAKFAST & DINNER, First | | AM PDT | | | | | dose on [facility] 05/16/19 at 0800 | | | | | | + +-------+ +---------+---+---+ +-------+ +---------+---+---+ | Given | 05/17/19 | 12.5 mg | | | | | 20 5:23 | | | | | | PM PDT | | | | +-------+ +---------+---+---+ | Given | 05/17/19 | 12.5 mg | | | | | 20 8:40 | | | | | | AM PDT | | | | +-------+ +---------+---+---+ + +---+ | | | + +---+ | dextrose 10% (D10W) infusion | | | at 50 mL/hr, Intravenous, | | | CONTINUOUS PRN, hypoglycemia, | | | Starting 05/15/19 at 2356, | | | Start infusion if unable [...] Blood Sugar, Starting Wed | | | 05/15/19 at 2356, For blood glucose | | | 50-69 mg/dl - give 12.5 g For | | | blood glucose less than 50 mg/dl | | | - give 25 g, | | + +---+ | | | + +---+ + +-------+ +------+---+---+ | finasteride (PROSCAR) tablet 5 | Given | 05/18/19 | 5 mg | | | | mg 5 mg, Oral, DAILY, First dose | | 20 8:35 | | | | | on Joselyn 05/16/19 at 0900, | | AM PDT | | | | | Reproductive Risk: Use | | | | | | | appropriate handling | | | | | | | precautions., | | | | | | + +-------+ +------+---+---+ +-------+ +------+---+---+ | Given | 05/17/19 | 5 mg | | | | | 20 8:41 | | | | | | AM PDT | | | | +-------+ +------+---+---+ | Given | 05/16/19 | 5 mg | | | | | 20 8:21 | | | | | | AM PDT | | | | +-------+ +------+---+---+ +---+---+ | | | +---+---+ + +-------+ +-------+---+---+ | hydrALAZINE (APRESOLINE) tablet | Given | 05/18/19 | 25 mg | | | | 25 mg 25 mg, Oral, 2 TIMES | | 20 8:34 | | | | | DAILY, First dose on [facility] 05/16/19 | | AM PDT | | | | | at 0015 | | | | | | + +-------+ +-------+---+---+ +-------+ +-------+---+---+ | Given | 05/17/19 | 25 mg | | | | | 20 8:00 | | | | | | PM PDT | | | | +-------+ +-------+---+---+ | Given | 05/17/19 | 25 mg | | | | | 20 8:41 | | | | | | AM PDT | | | | +-------+ +-------+---+---+ +---+---+ | | | +---+---+ + +-------+ + +---+---+ | HYDROcodone-acetaminophen | Given | 05/18/19 | 1 tablet | | | | (NORCO) 5-325 mg per tablet 1-2 | | 20 10:46 | | | | | tablet 1-2 tablet, Oral, EVERY 4 | | AM PDT | | | | | HOURS PRN, Pain, Mild Pain, | | | | | | | Moderate Pain, Starting Wed | | | | | | | 05/15/19 at 2356, If ineffective | | | | | | | use [place] 10/325 if ordered. If | | | | | | | not tolerated, use Percocet then | | | | | | | Oxycodone if ordered., | | | | | | + +-------+ + +---+---+ +-------+ +---------+---+---+ | Given | 05/18/19 | 2 | | | | | 20 1:08 | tablets | | | | | AM PDT | | | | +-------+ +---------+---+---+ | Given | 05/17/19 | 2 | | | | | 20 3:15 | tablets | | | | | PM PDT | | | | +-------+ +---------+---+---+ +---+---+ | | | +---+---+ + +-------+ +------+---+---+ | HYDROmorphone (DILAUDID) | Given | 05/15/19 | 1 mg | | | | injection 1 mg 1 mg, | | 20 8:32 | | | | | Intravenous, EVERY 1 HOUR PRN, | | PM PDT | | | | | Moderate Pain, Pain, Starting Wed | | | | | | | 05/15/19 at 2023, For 3 doses | | | | | | + +-------+ +------+---+---+ +---+---+ | | | +---+---+ + +-------+ +--------+---+---+ | ibuprofen (ADVIL, MOTRIN) | Given | 05/17/19 | 400 mg | | | | tablet 400 mg 400 mg, Oral, 3 | | 20 5:23 | | | | | TIMES DAILY WITH MEALS, First | | PM PDT | | | | | dose on Joselyn 05/16/19 at 0800, For 2 | | | | | | | days, Give with food., | | | | | | + +-------+ +--------+---+---+ +-------+ +--------+---+---+ | Given | 05/17/19 | 400 mg | | | | | 20 11:12 | | | | | | AM PDT | | | | +-------+ +--------+---+---+ | Given | 05/17/19 | 400 mg | | | | | 20 8:40 | | | | | | AM PDT | | | | +-------+ +--------+---+---+ +---+---+ | | | +---+---+ + +-------+ + +---+ + | insulin detemir (LEVEMIR | Given | 05/16/19 | 45 Units | | Abdomen- | | FLEXTOUCH) injection (pen) 45 | | 20 8:44 | | | LLQ | | Units 45 Units, Subcutaneous, | | PM PDT | | | | | NIGHTLY, First dose on Mon05/16/19 | | | | | | | at 0045, For subcutaneous use | | | | | | | only. Basal (long acting) | | | | | | | insulin., If NPO: Decrease dose, | | | | | | | by: 50% | | | | | | + +-------+ + +---+ + +-------+ + +---+ + | Given | 05/16/19 | 45 Units | | Abdomen- | | | 20 1:40 | | | LUQ | | | AM PDT | | | | +-------+ + +---+ + +---+---+ | | | +---+---+ + +-------+ + +---+ + | insulin detemir (LEVEMIR | Given | 05/17/19 | 50 Units | | Abdomen- | | FLEXTOUCH) injection (pen) 50 | | 20 9:50 | | | RUQ | | Units 50 Units, Subcutaneous, | | PM PDT | | | | | NIGHTLY, First dose (after last | | | | | | | modification) on Mon05/17/19 at | | | | | | | 2100, For subcutaneous use only. | | | | | | | Basal (long acting) insulin., If | | | | | | | NPO: Decrease dose, by: 50% | | | | | | + +-------+ + +---+ + +---+---+ | | | +---+---+ + +-------+ +---------+---+ + | insulin lispro (humaLOG) | Given | 05/18/19 | 2 Units | | Arm-Left | | injection (vial) 0-12 Units 0-12 | | 20 11:37 | | | Upper | | Units, Subcutaneous, 4 TIMES | | AM PDT | | | | | DAILY WITH MEALS & NIGHTLY, First | | | | | | | dose on Joselyn 05/16/19 at 0045, | | | | | | | [...] | | | | | | | [id number] Use NIGHT DOSE for | | | | | | | doses scheduled: HS, | | | | | | | Nighttime [id number] If the BG is | | | [...] + +-------+ +---------+---+ + | Given | 05/18/19 | 2 Units | | Arm-Left | | | 20 6:30 | | | Upper | | | AM PDT | | | | +-------+ +---------+---+ + | Given | 05/17/19 | 2 Units | | Arm-Left | | | 20 5:25 | | | Upper | | | PM PDT | | | | +-------+ +---------+---+ + +---+---+ | | | +---+---+ + +-------+ + +---+ + | insulin lispro (humaLOG) | Given | 05/16/19 | 10 Units | | Abdomen- | | injection (vial) 10 Units 10 | | 20 4:15 | | | RLQ | | Units, Subcutaneous, 3 TIMES | | PM PDT | | | | | DAILY WITH MEALS, First dose on | | | | | | | Joselyn 05/16/19 at 0800, Only for use | | | | | | | with U-100 insulin syringe., | | | | | | + +-------+ + +---+ + +-------+ + +---+ + | Given | 05/16/19 | 10 Units | | Abdomen- | | | 20 11:46 | | | RLQ | | | AM PDT | | | | +-------+ + +---+ + | Given | 05/16/19 | 10 Units | | Abdomen- | | | 20 8:00 | | | RUQ | | | AM PDT | | | | +-------+ + +---+ + +---+---+ | | | +---+---+ + +-------+ + +---+ + | insulin lispro (humaLOG) | Given | 05/18/19 | 15 Units | | Arm-Left | | injection (vial) 15 Units 15 | | 20 11:36 | | | Upper | | Units, Subcutaneous, 3 TIMES | | AM PDT | | | | | DAILY WITH MEALS, First dose | | | | | | | (after last modification) on Mon | | | | | | | 05/17/19 at 0800, Only for use | | | | | | | with U-100 insulin syringe., | | | | | | + +-------+ + +---+ + +-------+ + +---+ + | Given | 05/18/19 | 15 Units | | Arm-Righ | | | 20 6:30 | | | t Upper | | | AM PDT | | | | +-------+ + +---+ + | Given | 05/17/19 | 15 Units | | Arm-Righ | | | 20 5:25 | | | t Upper | | | PM PDT | | | | +-------+ + +---+ + +---+---+ | | | +---+---+ + +-------+ +-------+---+---+ | lisinopril (PRINIVIL, ZESTRIL) | Given | 05/18/19 | 40 mg | | | | tablet 40 mg 40 mg, Oral, DAILY, | | 20 8:36 | | | | | First dose on [facility] 05/16/19 at 0900 | | AM PDT | | | | + +-------+ +-------+---+---+ +-------+ +-------+---+---+ | Given | 05/17/19 | 40 mg | | | | | 20 8:42 | | | | | | AM PDT | | | | +-------+ +-------+---+---+ | Given | 05/16/19 | 40 mg | | | | | 20 8:20 | | | | | | AM PDT | | | | +-------+ +-------+---+---+ +---+---+ | | | +---+---+ + +-------+ +-------+---+---+ | NIFEdipine (PROCARDIA XL) ER | Given | 05/18/19 | 60 mg | | | | tablet 60 mg 60 mg, Oral, DAILY, | | 20 8:36 | | | | | First dose on [facility] 05/16/19 at 0900 | | AM PDT | | | | + +-------+ +-------+---+---+ +-------+ +-------+---+---+ | Given | 05/17/19 | 60 mg | | | | | 20 8:41 | | | | | | AM PDT | | | | +-------+ +-------+---+---+ | Given | 05/16/19 | 60 mg | | | | | 20 8:20 | | | | | | AM PDT | | | | +-------+ +-------+---+---+ +---+---+ | | | +---+---+ + +-------+ +------+---+---+ | ondansetron (ZOFRAN) injection | Given | 05/16/19 | 4 mg | | | | 4 mg 4 mg, Intravenous, EVERY 6 | | 20 7:35 | | | | | HOURS PRN, Nausea, Vomiting, | | PM PDT | | | | | Starting 05/15/19 at 2356, | | | | | | | First line agent, | | | | | | + +-------+ +------+---+---+ +-------+ +------+---+---+ | Given | 05/16/19 | 4 mg | | | | | 20 6:05 | | | | | | AM PDT | | | | +-------+ +------+---+---+ +---+---+ | | | +---+---+ + +-------+ +------+---+---+ | ondansetron (ZOFRAN) injection | Given | 05/15/19 | 8 mg | | | | 8 mg 8 mg, Intravenous, ONCE, | | 20 8:32 | | | | | 05/15/19 at 2030, For 1 dose | | PM PDT | | | | + +-------+ +------+---+---+ +---+---+ | | | +---+---+ + +-------+ +-------+---+---+ | pantoprazole (PROTONIX) DR | Given | 05/18/19 | 40 mg | | | | tablet 40 mg 40 mg, Oral, 2 | | 20 6:13 | | | | | TIMES DAILY BEFORE MEALS, First | | AM PDT | | | | | dose on [facility] 05/16/19 at 0630, | | | | | | | Formulary substitution for | | | | | | | Omeprazole., Indication: GERD | | | | | | + +-------+ +-------+---+---+ +-------+ +-------+---+---+ | Given | 05/17/19 | 40 mg | | | | | 20 5:23 | | | | | | PM PDT | | | | +-------+ +-------+---+---+ | Given | 05/17/19 | 40 mg | | | | | 20 6:26 | | | | | | AM PDT | | | | +-------+ +-------+---+---+ +---+---+ | | | +---+---+ + +-------+ +------+---+---+ | polyethylene glycol (MIRALAX) | Given | 05/18/19 | 17 g | | | | powder 17 g 17 g, Oral, DAILY | | 20 1:39 | | | | | PRN, Constipation, Starting Wed | | PM PDT | | | | | 05/15/19 at 2356, If docusate and | | | | | | | senna ineffective or not | | | | | | | ordered., | | | | | | + +-------+ +------+---+---+ +-------+ +------+---+---+ | Given | 05/17/19 | 17 g | | | | | 20 8:01 | | | | | | PM PDT | | | | +-------+ +------+---+---+ | Given | 05/16/19 | 17 g | | | | | 20 7:35 | | | | | | PM PDT | | | | +-------+ +------+---+---+ +---+---+ | | | +---+---+ + +-------+ +--------+---+---+ | tamsulosin (FLOMAX) capsule 0.4 | Given | 05/18/19 | 0.4 mg | | | | mg 0.4 mg, Oral, 2 TIMES DAILY, | | 20 8:36 | | | | | First dose on Mon05/16/19 at | | AM PDT | | | | | 0015, Do not crush or chew | | | | | | | capsule. If unable to swallow, | | | | | | | may open capsule and sprinkle | | | | | | | over acidic soft food | | | | | | | (applesauce, yogurt) or in a | | | | | | | small quantity of acidic fruit | | | | | | | juice (orange, grape). Administer | | | | | | | immediately (do not allow | | | | | | | granules to dissolve). Do not | | | | | | | administer via tube routes., | | | | | | + +-------+ +--------+---+---+ +-------+ +--------+---+---+ | Given | 05/17/19 | 0.4 mg | | | | | 20 8:00 | | | | | | PM PDT | | | | +-------+ +--------+---+---+ | Given | 05/17/19 | 0.4 mg | | | | | 20 8:41 | | | | | | AM PDT | | | | +-------+ +--------+---+---+ +---+---+ | | | +---+---+ documented in this encounter
--- OUTSIDE RECORDS SUMMARY | ~2019-10-12 | XMS | Encounter Summary ---
Demographics + + + | Address | [address] | | | [place] [address] | + + + | Home Phone | | + + + | Preferred Language | Unknown | + + + | Marital Status | | + + + | Confucianism Affiliation | 1027 | + + + | Race | White | + + + | Ethnic Group | Not or | + + + Author + + + | Author | [facility] | | | and [place] | + + + | Organization | [facility] | | | and [place] | + + + | Address | Unknown | + + + | Phone | Unavailable | + + + Support + + + + + | Name | Relationship | Address | Phone | + + + + + | Sammi Kohler | ECON | [place] [address] | | + + + + + Care Team Providers + +------+ + | Care Lock Corner Machine Operator Name | Role | Phone | + +------+ + | Mireya Pack NP | PCP | | + +------+ + Reason for Visit + +--------+ + | Reason | Onset | Comments | | | Date | | + +--------+ + | TCM - Hosp FU | 01/17/ | | | | 2018 | | + +--------+ + Encounter Details +--------+ + + + + | Date | Type | Department | Care Team | Description | +--------+ + + + + | 01/17/ | Telephone | [facility] | Sanjuanita Rodriguez RN | TCM - Hosp FU | | 2019 | | ACCESS REP | | | | | | MANAGEMENT [address] | | | | | [address] | | | | | | [place] | | | | | | [address] | | | | | | [phone] | | | +--------+ + + + [...] this encounter Miscellaneous Notes Telephone Encounter - Silva Garcia Mechanical Cad Designer - 02/01/2019 9:37 AM PSTFormatt ing of this note might be different from the original. SITUATION Transitional Care Management follow-up call Spoke with: Kevyn after verifying 2 patient identifiers BACKGROUND Multiple Hospital and ED Encounters Admission Date: 01/25/19 Discharge Date: 01/25/19 Discharge Disposition: Home or Self Care Principle Discharge Diagnosis: Headache ASSESSMENT General: How are you doing since you returned home?: Patient states, "not good he just got home from the ED but it was [facility] because the ambulance wouldn't take him to [facility]" Patient Reported Symptoms: (use disease specific dot phrases for CAD/SC, CHF, COPD, DM, PNA , or Sepsis) Follow up: Will forward to primary care provider to verify instructions for Novolog Will send to [facility] for follow up in 2 weeks to ask about capillary blood glucose read ings as well as to see if patient has increased his Levemir dose to 60 units nightly. Patient questions/concerns needing RNCM review: Patient states the he went to [facility] for elevated BP-216/66 and vomiting. He notes that h e was there from about 2am-7am this morning. He denied any medication changes. He reports that his BS have been bad and was having readings in the range of 380 around the holidays. This morning is BS was 207. When asked if he increased his Levemir to 60 units he stated "I am doing 80 units, it was c hanged again." I repeated so you are taking 80 units of Levemir, nightly and he said "yes. " (I do not see any documentation in the chart to reflect 80 units of Levemir.) Patient denied chest pain, fever and headache but was positive for mild nausea and dizzines s. UPCOMING APPOINTMENTS Future Appointments Date Time Provider Department Center 02/18/2019 2:30 PM [facility] 01 [facility] 03/26/2019 8:30 AM DO TATUM Thomas 04/03/2019 1:30 PM NORM White RECOMMENDATION Forwarded to RNCM for follow up Provided patient with contact information for RNCM, encouraged to call with any questions/c oncerns. ele phone Encounter - Sanjuanita Rodriguez, RN - 01/17/2019 11:16 AM PST Call placed to doug Bagley ied name and date of Spoke briefly with patient before he tells me "I have another call coming through, I can 't talk now, bye". Kevyn reports "I am doing the same, my blood sugar is still high". Kevyn reports that hs blood sugars have ranged from the 190's to the low 300's. When ask ed how he was taking his insulin he reports "I take 5 to 15 units at meals, and 40 units of his long acting insulin at night. Patient had his Levemir insulin increased to 60 units geo vallejo on 12/26/2018, I have explained this time him and he always states that he understands, but he is not implementing this change and his blood sugar results remain uncontrolled. I al so do not see directions for sliding scale coverage of his Novolog, will verify with his [facility]. Has caregivers that come into his home for 2 hours daily, but they do not help with medi cations, patient is independent in this. Follow up: Will forward to primary care provider to verify instructions for Novolog Will send to [facility] for follow up in 2 weeks to ask about capillary blood glucose read ings as well as to see if patient has increased his Levemir dose to 60 units nightly. Electr onically signed by Sanjuanita Rodriguez RN at 01/17/2019 11:36 AM PSTdocumented in this encounter Plan of Treatment +--------+ + + + + | Date | Type | Specialty | Care Team | Description | +--------+ + + + + | 10/16/ | Anti-coag | Anticoagulation | Rhawn[facility] | | | 2020 | visit | | [address] | | | | | | [place], | | | | | | [place] [address] | | | | | | [phone] | | | | | | | | +--------+ + + + + documented as of this encounter Visit Diagnoses Not on filedocumented in this encounter
--- OUTSIDE RECORDS SUMMARY | ~2019-10-12 | XMS | Encounter Summary ---
Demographics + + + | Address | [address] | | | [place] [address] | + + + | Home Phone [...] + | Sammi Kohler | ECON | [place] [address] | | + + + + + Care Team Providers + +------+ + | [employer] Sales Representative Name | Role | Phone | + +------+ + | Mireya Pack NP | PCP | | + +------+ + Reason for Referral Evaluate & Treat (Emergency) +--------+ + + [...] | Vertigo | Mireya Calixto NP | [place], AUD | | | Required | | | [address] | [address] | | | | | | [address] | [address] | | | | | [address] | [place], | | | | | | [place], [place] | [place] [address] | | | | | | [address] | Phone: | | | | | | Phone: | [phone] | | | | | | [phone] | Fax: | | | | | | Fax: | [phone] | | | | | | [phone] | | +--------+ + + + + + Reason for Visit +--------+ + | Reason | Comments | +--------+ + | Other | walk in | +--------+ + Encounter Details +--------+ + + + + | Date | Type | Department | Care Team | Description | +--------+ + + + + | 01/10/ | Telephone | JEOVANNYGabrielle JULIANA | Lucia Amos | Other (walk in ) | | 2019 | | [facility] [address] | [address] | | | | | [address] | | | | | [facility] [place] | | | | | | [address] | | | | | | [phone] | | | +--------+ + + + [...] Telephone Encounter - Lucia Amos RN - 01/10/2019 2:03 PM PSTWent back to room and explained to patient that PCP requested for both his ears to be looked at. Patient said mykel t there is nothing there as it was just cleaned out last week. Did explain to him that this is PCP's request to help him with his situation. He stated understanding and allowed this nu rse to look in both of his ears. Noted earwax in both ears. Another nurse contacted Dr. Goodrich's office and was able to get an apt at 9:30am tomorrow. C onfirmed with patient that he is able to make this, he then demanded for staff to set up [facility] apt for tomorrow for this and he then wanted to be picked up by [facility] right now. Another nurs e on hold with audiology office and relayed the information, patient placed on apt tomorrow. Patient still talking in angry loud voice but he calmed down when apt with specialist was r elayed to him. He stood up and got ready to leave, informed to take it slow and not bush. [place] echolse assisted with putting his jacket back on, placed cane in hand and walked with him outsid e. front desk clerk staff assisted with contacting [facility] for the apt tomorrow and for him to be picked up right now. [facility] will be here to pick him up at 3pm. Patient is at the waiting area at thi s time, reminded him of apt next week with another provider. Patient apologized to this nurs e for his behavior, he said that he is handicapped like his brother and he knows that this n urse was just trying to help. Relayed to him PCP's message regarding meclizine 4x a day PRN and he said that he is already doing this every 8 hours as ordered. Routed to PCP as FY[place]. elephone Encounter - Mireya Pack NP - 01/10/2019 1:53 PM PSTReviewed BP in ED an d clinic Reviewed labs in ED Reviewed [facility] with findings c/w vertigo and referral placed to ENT. Recommend: Urgent referral to audiology Dr Goodrich, referral desk/nursing please call and arrange abbey a ppointment fo patient Nursing please check patient for impacted cerumen and lavage PRN impacted cerumen (may load order if needed and I will sign) Recommend that he may take his meclizine up to 4 times daily prn elephone Encounter - Lucia Amos RN - 01/10/2019 1:50 PM PSTThis nurse went in room to check on him an d informed him that I am waiting for a reply from PCP. Patient got mad again and demanded to be seen by an MD in clinic and not by this nurse. Did remind him again not to raise his voi ce but patient again said that he wants to be seen by an MD. elephone Encounter - Lucia Amos RN - 06/2018 1:40 PM PSTVital signs are in the encounter: 140/80, Sa02 97 pulse 73. elephone Encounte r - Mireya Pack NP - 01/10/2019 1:31 PM PSTTake his vs in clinic to document and send me thanks elephone Encounter - Lucia Amos RN - 01/10/2019 12:46 PM PSTPatient walked in with c/o dizziness. He w as seen in ED today at 0518 and discharged at 0754. He has an apt scheduled for next week on 01/16/19 with another provider. Reminded patient o f this, he said he is aware but the ED staff told him to be seen by his regular doctor right away. Patient walked to exam room with a cane and asked for two cups of water. Explained that his BP will be checked after he has sat down for at least 15 min. He stated understanding. Patient confirmed that he is taking the 4 BP meds that he is on, namely Coreg 12.5 mg twice a day, hydralazine 25mg twice a day, lisinopril 10mg, 2 tabs once a day and nifedipine 60mg once a day. He took his meds at 4am today and he was seen in ED more than an hour later. BP in ED this morning was 158/85. Sa02 was 97 and pulse 73. BP right now is 140/80. C/o diz ziness all the time he said, he almost fell out of bed last night, also has headache. No kylee st pain. No SOB. Patient said that his right ear was drained from earwax last week. He verif ied that his dizziness has been going on since last week. He is taking meclizine and it is n ot working. Approached a provider in clinic regarding this and she said that this is not a BP related i ssue as his BP is not that elevated. Provider recommended for patient to go back to ED if di zziness is that bad. However, patient flared up and spoke in a loud angry voice when informed about this, he justin d that he does not want to leave here with the dizziness not solved. Informed will send a no te to his PCP. He stated understanding. Further informed patient not to yell at this nurse a s I'm trying to help him. Patient apologized and calmed down, he said that he has a bad temp er since he was a kid. Routed to PCP. What are your recommendations for this? documented in this encounter Plan of Treatment +--------+ + + + + | Date | Type | Specialty | Care Team | Description | +--------+ + + + + | 10/16/ | Anti-coag | Anticoagulation | Brittany Zaragoza | | | 2019 | visit | | [address] | | | | | | [facility] [place], | | | | | | [place] [address] | | | | | | [phone] | | | | | | | [...] + | Diagnosis | + + | Vertigo - Primary Dizziness and giddiness | + + documented in this encounter"
--- OUTSIDE RECORDS SUMMARY | ~2019-10-12 | XMS | Encounter Summary ---
Demographics + + + | Address | [address] | | | [place] [address] | + + + | Home Phone | | + + + | Preferred Language | Unknown | + + + | Marital Status | | + + + | [employer] Affiliation | 1027 | + + + | Race | White | + + + | Ethnic Group | Not or | + + + Author + + + | Author | [facility] | | | and [place] | + + + | Organization | [facility] | | | and [place] | + + + | Address | Unknown | + + + | Phone | Unavailable | + + + Support + + + + + | Name | Relationship | Address | Phone | + + + + + | Sammi Kohler | ECON | [place] [address] | | + + + + + Care Team Providers + +------+ + | Care Skid Machine Operator Name | Role | Phone | + +------+ + PCP | Unavailable | + +------+ + Encounter Details +--------+ + + + + | Date | Type | Department | Care Team | Description | +--------+ + + + + | 02/06/ | [facility] | [facility] | Keisha Ahn MD | Atrial fibrillation | | 2019 - | Encounter | [facility] | [address] | with RVR (HCC); | | | | CLINICAL DECISION | [place] [address] | Chest pain, | | 02/07/ | | [address] | [phone] | unspecified type; | | 2019 | | [place], [place] | | Chronic | | | | [address] | | anticoagulation | | | | [phone] | | | +--------+ + + + [...] + + + | Blood Pressure | 143/71 | 02/07/2018 10:41 AM | | | | | PST | | + + + + + | Pulse | 56 | 02/07/2018 10:41 AM | | | | | PST | | + + + + + | Temperature | 37 C (98.6 F) | 02/07/2018 10:41 AM | | | | | PST | | + + + + + | Respiratory Rate | 16 | 02/07/2018 10:41 AM | | | | | PST | | + + + + + | Oxygen Saturation | - | - | | + + + + + | Inhaled Oxygen | - | - | | | Concentration | | | | + + + + + | Weight | 92.5 kg (204 lb) | 02/07/2018 10:41 AM | | | | | PST | | + + + + + | Height | 180.3 cm (5' 11") | 02/07/2018 10:41 AM | | | | | PST | | + + + + + | Body Mass Index | 28.45 | 02/07/2018 10:41 AM | | | | | PST | | + + + + + documented in this encounter Discharge Summaries Sammy John MD - 02/07/2018 11:06 AM PSTFormatting of this note might be differen t from the original. Discharge Summaries by SUSI PorterR2 at 02/07/18 8606 Author: JERZY Porter Service: Hospitalist Author Type: Resident-Y2 Filed: 02/07/18 9435 Date of Service: 02/07/18 6767 Status: Attested Electrical Maintenance Man: JERZY Porter (Resident-Y2) Cosigner: Bong Ahn MD at 02/07/18 3330 Attestation signed by Bong Ahn MD at 02/07/18 4924 Patient seen and examined prior to discharge. Patient converted back to NSR and has attaine d baseline status. He wants to go home today and is stable for discharge. Patient is advised to be compliant with talking medicines as directed and will recommend to PCP to refer him t o psychiatrist. He is on lithium and other mood stabilizing medicines and will benefit from following a psychiatrist on outpatient basis. I agree with the discharge summary of Dr. John and outpatient plan of care mentioned in t he note. [facility] Service: Hospitalist Discharge Summary Date of Admission: 02/06/2018 Date of Discharge: 02/07/18 Discharge Provider: SUSI SmythR2 Treatment Team: Admitting Provider: Keisha Ahn MD Discharge Diagnoses: Principal Problem (Resolved): A-fib with RVR Active Problems: WARD (obstructive sleep apnea) Hyperlipidemia CKD (chronic kidney disease) TIA (transient ischemic attack) COPD (chronic obstructive pulmonary disease) Anxiety Depression Hypertension Pulmonary embolism without acute cor pulmonale (HCC) Uncontrolled type 2 diabetes mellitus (HCC) Resolved Problems: Chest pain BRIEF HISTORY OF PRESENTATION: Per H&P by Dr. Ginny Ahn on 02/06/18: 61 y.o.malewith a significant past medical history of developmental delay, anxiety/depr ession, paroxysmal atrial fibrillation,diabetes mellitus type 2, COPD not on oxygen, WARD, TIA, HTN, HLD, recurrent callsto EMS for chest pain (5-6 in the past month), recently dominguez gnosis of acute pulmonary embolism on apixaban 10/24,who presents with chest pain. The patient reports he had chest pain that started last night at about 8:00 or 9:00. Pain was across his chest, but worse on his left side and his epigastric region. Pain was stabbi ng and aching in nature and also pleuritic in nature. Pain was nonreproducible. It kept hi m up intermittently throughout the night and hence he called his friend and was brought to [facility]. Pain radiated to his neck and he had associated shortness of breath with this. Pain was 9/10 in severity. He had associated generalized weakness, dizz iness, chills, but no nausea, vomiting, or diaphoresis. He denied any cough, but has been h aving mild diarrhea. He reports weak urinary stream, but no lower extremity edema. He gets his medications in a bubble wrap, which he has been compliant with. Pain is not exertional in nature. In the emergency department, patient's initial blood pressure was 206/158. He was in atria l fibrillation with RVR with a heart rate of 123. His labs show negative troponin. BNP was normal. EKG showed evidence of atrial fibrillation with RVR. ALT of 116. Glucose 366. S odium 134. UA was negative for UTI. Influenza testing was negative. He was started on a C ardizem drip; however, his blood pressure decreased to 90 systolic and hence this was held a nd currently his heart rate is in the 80s with a blood pressure in the 140 systolic. Chest x-ray showed no acute cardiopulmonary process. HOSPITAL COURSE: Patient continued to have negative troponins and no changes noted on telemetry. Resolution of atrial fibrillation occurred suggesting paroxysmal nature. Recommend patient continue an ticoagulation with Eliquis. Also recommend patient increase NovoLog dose to 20 units 3 times daily with meals. There was concern with patient regarding how he takes his home medication s so occupational therapy and physical therapy evaluations obtained. Physical therapy had no new recommendations for the patient. Occupational therapy recommending daytime and nighttim e assess with recommended increase in caregiver hours. agronomy manager was in touch with liza benton's outpatient case management social worker and plan to coordinate evaluation for more caregiver hours. [facility] therapy trained patient on how to take medications properly and patient was able to demonstrate prior to discharge. Strongly encourage patient to take medications as prescribe d and as instructed. He verbalized understanding and was discharged in stable condition with close follow-up with PCP. We recommend patient be [facility]. No prescriptions prior to admission. DISCHARGE EXAM Vital Signs: BP 143/71 (BP Location: Right upper arm) | Pulse 56 | Temp 98.6 F (37 C) (Oral) | Re sp 16 | Ht 1.803 m (5' 11") | Wt 92.5 kg (204 lb) | SpO2 96% | BMI 28.45 kg/m Physical Exam General Appearance: awake, alert, oriented, in no acute distress Lungs: Normal expansion. Clear to auscultation. No rales, rhonchi, or wheezing. Heart: Heart sounds are normal. Regular rate and rhythm without murmur, gallop or rub. Abdomen: Soft, non-tender, normal bowel sounds. No bruits, organomegaly or masses. Musculoskeletal: No joint swelling, deformity, or tenderness. Peripheral Pulses: Capillary refill <2secs, strong peripheral pulses Neurologic: A&Ox3. Baseline developmental delay that appears to be high functioning as he lives alone and keeps a schedule of appointments. No focal deficit noted. DATA Recent Labs Lab 02/07/18 0538 02/06/18 0803 WBC 9.78 7.60 HGB 13.3 15.3 HCT 39.6 43.9 PLT 230 257 NEUTOPHILPCT 53.61 45.27 MONOPCT 8.29 11.34 Recent Labs Lab 02/07/18 0538 02/06/18 0803 NA 139 134* K 4.4 3.6 CL 105 100 CO2 25 25 BUN 25 22 CREATININE 1.0 1.1 PROT -- 7.5 BILITOT -- 0.6 ALT -- 23 AST -- 20 Phosphorus: Lab Results Component Value Date PHOS 3.2 02/07/2018 Invalid input(s): LABALBU Recent Labs Lab 02/07/18 0538 MG 2.0 Recent Labs Lab 02/06/18 0803 APTT 25 INR 1.0 Recent Labs Lab 02/07/18 0538 02/06/18 2353 02/06/18 1757 02/06/18 0803 CKTOTAL -- -- -- 99 TROPONINI <0.02 0.028 0.034 0.026 CKMBINDEX -- -- -- 4.3 Radiology Xr Chest Pa And Lateral Result Date: 02/06/2018 1. No acute cardiopulmonary findings. 8: 38 AM Us Abdomen Limited Result Date: 02/06/2018 1. Prior cholecystectomy. 2. Fatty liver. 3. No acute findings. Follow up with PCP within 1 week; We recommend your doctor refer you to a psychiatrist to h elp manage lithium and lamotrigine medications Continue all medications as prescribed and take them as directed Increase Novolog insulin to 20 Units three times daily with meals Continue to check blood sugar 3 times per day. Disposition: Home Condition: Stable Code Status: Full Code No discharge procedures on file. Follow up: Per Pt None Medication List START taking these medications budesonide-formoterol 160-4.5 MCG/ACT inhaler QTY: 1 Inhaler Refills: 0 Commonly known as: SYMBICORT Inhale 2 puffs into the lungs 2 (two) times daily. Replaces: DULERA 100-5 MCG/ACT inhaler pantoprazole 40 MG tablet QTY: 30 tablet Refills: 0 Commonly known as: PROTONIX Take 1 tablet by mouth every morning before breakfast for 60 days. Start taking on: 02/08/2018 Replaces: omeprazole 20 MG capsule CHANGE how you take these medications insulin aspart 100 UNIT/ML injection QTY: 10 mL Refills: 5 Commonly known as: NOVOLOG Inject 20 units 3 times a day with meals What changed: See the new instructions. insulin detemir 100 UNIT/ML injection QTY: 10 mL Refills: 12 Commonly known as: LEVEMIR Inject 30 Units into the skin 2 (two) times daily. Inject 45 units subcutaneous at bedtime What changed: how much to take when to take this additional instructions CONTINUE taking these medications amLODIPine 10 MG tablet QTY: 30 tablet Refills: 1 Commonly known as: NORVASC Take 0.5 tablets by mouth daily. apixaban 5 MG tablet QTY: 60 tablet Refills: 0 Commonly known as: ELIQUIS Take 1 tablet by mouth 2 (two) times daily. ARIPiprazole 10 MG tablet Refills: 0 Commonly known as: ABILIFY aspirin 81 MG tablet Refills: 0 docusate sodium 250 MG capsule Refills: 0 Commonly known as: COLACE fenofibrate 160 MG tablet Refills: 0 gabapentin 100 MG capsule Refills: 0 Commonly known as: NEURONTIN lamoTRIgine 200 MG tablet Refills: 0 Commonly known as: LAMICTAL lisinopril 40 MG tablet QTY: 60 tablet Refills: 0 Commonly known as: ZESTRIL Take 1 tablet by mouth daily for 30 days. lithium 300 MG CR tablet Refills: 0 Commonly known as: LITHOBID nebivolol 10 MG tablet Refills: 0 Commonly known as: BYSTOLIC PARoxetine 20 MG tablet Refills: 3 Commonly known as: PAXIL pravastatin 80 MG tablet Refills: 0 Commonly known as: PRAVACHOL tamsulosin 0.4 MG capsule Refills: 0 Commonly known as: FLOMAX You might also be taking other medications not listed above. If you have questions about an y of your other medications, talk to the person who prescribed them or your Primary Care Pro vider. STOP taking these medications cloNIDine 0.1 mg/24 hr Commonly known as: CATAPRES DULERA 100-5 MCG/ACT inhaler Generic drug: mometasone-formoterol Replaced by: budesonide-formoterol 160-4.5 MCG/ACT inhaler omeprazole 20 MG capsule Commonly known as: PRILOSEC Replaced by: pantoprazole 40 MG tablet SPIRIVA HANDIHALER 18 MCG inhalation capsule Generic drug: tiotropium spironolactone-hydrochlorothiazide 25-25 MG per tablet Commonly known as: ALDACTAZIDE Where to Get Your Medications These medications were sent to [facility] [id number] [place] [id number] apixaban 5 MG tablet budesonide-formoterol 160-4.5 MCG/ACT inhaler insulin aspart 100 UNIT/ML injection pantoprazole 40 MG tablet Discharge took 40 minutes, to include final examination, discussion of admission, and prepa ration of prescriptions, instructions for on-going care, follow-up and documentation of disc harge summary. Sammy John MD-R2 02/07/2018 4:06 PM documented in t his encounter Medications at Time of Discharge + [...] Progress Notes Conversion Transaction, Provider Unknown - 02/07/2018 1:30 PM PSTFormatting of this note m ight be different from the original. Nurse Progress Note by Krishna Monteiro RN at 02/07/18 1330 Author: Krishna Monteiro RN Service: (none) Author Type: Registered Nurse Filed: 02/07/18 1291 Date of Service: 02/07/18 136 Status: Signed Electrical Maintenance Man: Krishna Monteiro RN (Registered Nurse) Pt discharged off unit via wheelchair to dial a ride. Discussed all discharge and prescript ion information with the patient. Pt verbalized understanding of all information given, CM d iscussed pt needs with pts personal case management social worker. (see note). All personal belongings with p atient at time of discharge. IV removed and tele notified. onver ivana Transaction, Provider Unknown - 02/07/2018 12:28 PM PST Case Management by González Soni MS, EPIC CUPID ANALYST at 02/07/18 1228 Author: González Soni MS EPIC CUPID ANALYST Service: (none) Author Type: Engine Wiper Filed: 02/07/18 4424 Date of Service: 02/07/18 1228 Status: Addendum Electrical Maintenance Man: González Soni MS, EPIC CUPID ANALYST (Engine Wiper) Related Notes: Original Note by González Soni MS, EPIC CUPID ANALYST (Engine Wiper) filed at 02/07/18 1830 CM met with pt, anticipating d/c today. Pt is pleasant and cooperative, developmentally dis abled however able to assist with his care coordination and able to recall specific care alen nning agency's involved that support his care. Pt is anxious to return home and reports no c oncerns post discharge. Pt resides alone in an apartment, he uses dial a ride for transportation. He has supportive ex-in laws in the local area and support from local episcopal. Pt has a case management social worker Sofie roberts [phone] at [facility] and she reports that pt received 20 hours per mon for supportive services. Sofie states pt has declined Medicaid due to the participation f ee he must incur. Pt has an senior property accountant in [place] that manages his finances and pt reports h e is content with their services. [facility] agency provides the care giving. Meals on wheel s is being used and pt is aware he needed to cancel his meal today as the meal was being del ivered at 11am. Pt is able recall dial a ride number and uses the bus system regularly. Hospitialist shared concern for medication management and increase in hours to CM. This CM provided this request to Sofie HILLMAN. Sofie reports that the Senior Systems Developer will visit with pt at his home to discuss the care needs and recommendations once pt is home. CM briefed with RN and anticipating d/c today. onver ivana Transaction, Provider Unknown - 02/06/2018 8:52 PM PST Progress Notes by Pepe Xie RPH at 02/06/182051 Author: Pepe Xie RPH Service: Pharmacy Author Type: Pharmacist Filed: 02/06/182051 Date of Service: 02/06/182051 Status: Signed Electrical Maintenance Man: Pepe Xie RPH (Pharmacist) Note ccl 79.9ml/min meds reviewed pharmacy [facility] onver ivana Transaction, Provider Unknown - 02/06/2018 3:05 PM PST Nurse Progress Note by Zeynep Black RN at 02/06/18 1505 Author: Zeynep Black RN Service: (none) Author Type: Registered Nurse Filed: 02/06/18 1513 Date of Service: 02/06/18 1505 Status: Signed Electrical Maintenance Man: Zeynep Black RN (Registered Nurse) In discussion with patient and pharmacist, felt based of assessment findings and patients d emeanor that he may be self-administering a medication at home incorrectly- Spiriva. A pictu re of the administration device was shown to patient. Pt states he does not have a similar d evice at home. A picture of Spiriva was then shown to the patient and he was asked if he rec alls taking a pill each day that looks like Spiriva. The patient states he does take a pill by mouth daily that looked like the picture he was shown. Pt was instructed when he was disc harged to review his prefilled medications to find that pill sheet and verify if it was Spir ronald, and if so, to begin taking as an inhaled administration and to stop taking as a by stacy sotomayor. Pt was informed staff would figure out how to obtain a new Spiriva inhaler device for him to take home. Pt shows dedication to taking what his doctors have ordered for him. He states further that his medications are all in cards with the doses prefilled for him to pop. He is not reliabl e with knowing pills by sight, but knows a few medications he is taking, unfortunately not a t what time. Pt is also not clear in understanding or explanation as to why some medications were stopped, just that he was told by the provider he did not need them anymore was all he is able to recall. Pt appears to be in need and would benefit greatly in having additional time taken to reorient the patient as to what pills he is taking, for what purpose, side-eff ects/adverse reactions to watch for, and in knowing medications better by sight, such as Spi dominga. docume nted in this encounter H&P Notes Keisha Ahn MD - 02/06/2018 10:02 AM PST H&P by Keisha Ahn MD at 02/06/18 1002 Author: Keisha Ahn MD Service: Hospitalist Author Type: Physician Filed: 02/07/18 0651 Date of Service: 02/06/18 1002 Status: Addendum Electrical Maintenance Man: Keisha Ahn MD (Physician) Related Notes: Original Note by Keisha Ahn MD (Physician) filed at 02/06/18 1119 [facility] Service: Hospitalist Admission History & Physical Date of Admission: 02/06/2018 Requesting Physician: Emergency Department Reason for Admission: afib with RVR, chest pain History Obtained From: patient CHIEF COMPLAINT: Chest pain HISTORY OF PRESENT ILLNESS 61 y.o. male with a significant past medical history of developmental delay, anxiety/depres ivana, paroxysmal atrial fibrillation, diabetes mellitus type 2, COPD not on oxygen, WARD, TI A, HTN, HLD, recurrent calls to EMS for chest pain (5-6 in the past month), recently diagnos is of acute pulmonary embolism on apixaban 10/24, who presents with chest pain. The patient r eports he had chest pain that started last night at about 8:00 or 9:00. Pain was across his chest, but worse on his left side and his epigastric region. Pain was stabbing and aching in nature and also pleuritic in nature. Pain was nonreproducible. It kept him up intermitt ently throughout the night and hence he called his friend and was brought to [facility]. Pain radiated to his neck and he had associated shortness of breath with t his. Pain was 9/10 in severity. He had associated generalized weakness, dizziness, chills, but no nausea, vomiting, or diaphoresis. He denied any cough, but has been having mild dominguez rrhea. He reports weak urinary stream, but no lower extremity edema. He gets his medicatio ns in a bubble wrap, which he has been compliant with. Pain is not exertional in nature. In the emergency department, patient's initial blood pressure was 206/158. He was in atria l fibrillation with RVR with a heart rate of 123. His labs show negative troponin. BNP was normal. EKG showed evidence of atrial fibrillation with RVR. ALT of 116. Glucose 366. S odium 134. UA was negative for UTI. Influenza testing was negative. He was started on a C ardizem drip; however, his blood pressure decreased to 90 systolic and hence this was held a nd currently his heart rate is in the 80s with a blood pressure in the 140 systolic. Chest x-ray showed no acute cardiopulmonary process. REVIEW OF SYSTEMS Review of Systems - General ROS: negative ENT: No ear discharge No nasal drainage. No sore throat Endocrine:No cold or heat tolerance. No weight changes Respiratory: no cough, +shortness of breath, no wheezing Cardiovascular: + chest pain or dyspnea on exertion Gastrointestinal: +epigasric abdominal pain, +diarrhea, no black or bloody stools Genitourinary: no dysuria, polyuria, hematuria Musculoskeletal: +generalized weakness Neurological: no TIA or stroke symptoms Dermatological:No rash Psych: cooperative Past Medical History Diagnosis Date Acute pulmonary embolism (HCC) 10/14/2017 Anxiety ARF (acute renal failure) (HCC) 03/02/2013 Atrial fibrillation (HCC) Basal cell carcinoma 09/26/2012 arm and back COPD (chronic obstructive pulmonary disease) (HCC) 03/02/2013 hypoxemia on 2 lts nc Depression Development delay Diabetes mellitus type II Facial droop 07/08/2013 GIB (gastrointestinal bleeding) 03/02/[address] Nur, rectal ulcers, nodule of GE junction Hypercholesterolemia 07/08/2013 Hyperlipidemia Hypertension emt intermediate (current) use of 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 Obesity, Class I, BMI 30-34.9 07/08/2013 WARD (obstructive sleep apnea) 08/11/2012 does not use CPAP because of the noise Other chronic pain Renal failure Stroke (HCC) TIA (transient ischemic attack) Unspecified visual disturbance reading glasses Past Surgical History Procedure Laterality Date ABDOMINAL SURGERY CHOLECYSTECTOMY CHOLECYSTECTOMY, LAPAROSCOPIC N/A 09/12/2012 Procedure: LAPAROSCOPIC - CHOLECYSTECTOMY; Surgeon: Jevon Vargas DO; Location: [facility] MAIN OR; Service: General; Laterality: N/A; COLONOSCOPY COLONOSCOPY N/A 03/04/2013 Procedure: COLONOSCOPY; Surgeon: Howie Gibson MD; Location: [facility] ENDOSCOPY; Service: Gastroen terology; Laterality: N/A; ESOPHAGOGASTRODUODENOSCOPY N/A 03/03/2013 Procedure: ESOPHAGOGASTRODUODENOSCOPY; Surgeon: Howie Gibson MD; Location: [facility] ENDOSCOPY; Se rvice: Gastroenterology; Laterality: N/A; HERNIA REPAIR N/A 07/03/2013 Procedure: LAPAROSCOPIC - HERNIA - INCISIONAL; Surgeon: Jevon Vargas DO; Location: [facility] MAIN OR; Service: General; Laterality: N/A; KNEE SURGERY rt knee, patella LEG SURGERY LLE SKIN BIOPSY SKIN CANCER EXCISION Left 10/10/2012 Procedure: EXCISION - SKIN CANCER; Surgeon: Sy Fierro MD; Location: [facility] MAIN OR; Service: Plastics; Laterality: Left; upper arm and upper back w/frozen section SKIN LESION EXCISION Left 05/05/2014 Procedure: EXCISION - LESION - FROZEN SECTION; Surgeon: Sy Fierro MD; Location: [facility] MA[facility] OR; Service: Plastics; Laterality: Left; forearm UNLISTED PROCEDURE ARTHROSCOPY UPPER GASTROINTESTINAL ENDOSCOPY Allergies Allergen Reactions Nitroglycerin Hives Vitamin B12 Rash (Not in a hospital admission) Family History Problem Relation Age of Onset Heart disease Father Heart disease Sister Diabetes type II Sister Heart Problems Brother Social History Social History Marital status: Spouse name: N/A Number of children: 1 Years of education: s. college Occupational History disabled Social History Main Topics Smoking status: Never Smoker Smokeless tobacco: Never Used Alcohol use 0.0 oz/week 1 - 2 Cans of beer per week Comment: occassional Drug use: No Sexual activity: Not Currently Other Topics Concern Not on file Social History Narrative Lives alone x 1 wk, moved from [facility], , 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 2 falls in the last 6 months. PHYSICAL EXAM BP 114/57 (BP Location: Left upper arm) | Pulse 117 | Temp 97.9 F (36.6 C) (Oral) | Resp 12 | SpO2 97% Gen: AOX3. NAD HEENT: NCAT CV: rate controlled. S1S2 normal. no murmer, rubs, or gallops. No JVD Chest: CTA b/l, left sternal tenderness Abd: S, +epigastric tenderness, ND. BS+, no gaurding or ridigity Ext: No edema. 2+ DP Neuro: Motor/sensations intact. 2+ DTRs DATA CBC: Lab Results Component Value Date WBC 7.60 02/06/2018 RBC 5.50 02/06/2018 HGB 15.3 02/06/2018 HCT 43.9 02/06/2018 MCV 79.9 (L) 02/06/2018 MCH 27.9 02/06/2018 MCHC 34.9 02/06/2018 RDW 39.4 02/06/2018 PLT 257 02/06/2018 MPV 7.8 02/06/2018 DIFFTYPE AUTOMATED 02/06/2018 CMP: Lab Results Component Value Date NA 134 (L) 02/06/2018 K 3.6 02/06/2018 CL 100 02/06/2018 CO2 25 02/06/2018 ANIONGAP 14 02/06/2018 GLUF 366 (H) 02/06/2018 BUN 22 02/06/2018 CREATININE 1.1 02/06/2018 CREATININE 1.2 07/08/2013 BCR 20 02/06/2018 CA 9.0 02/06/2018 PROT 7.5 02/06/2018 ALB 3.1 (L) 02/06/2018 GLOB 4.4 02/06/2018 BILITOT 0.6 02/06/2018 ALP 116 (H) 02/06/2018 AST 20 02/06/2018 ALT 23 02/06/2018 EGFR >60 02/06/2018 BMP: Lab Results Component Value Date NA 134 (L) 02/06/2018 K 3.6 02/06/2018 CL 100 02/06/2018 CO2 25 02/06/2018 ANIONGAP 14 02/06/2018 GLUF 366 (H) 02/06/2018 BUN 22 02/06/2018 CREATININE 1.1 02/06/2018 CREATININE 1.2 07/08/2013 BCR 20 02/06/2018 CA 9.0 02/06/2018 EGFR >60 02/06/2018 IMAGING: Xr Chest Pa And Lateral Result Date: 02/06/2018 1. No acute cardiopulmonary findings. 8: 38 AM PROBLEM LIST Principal Problem: A-fib with RVR Active Problems: WARD (obstructive sleep apnea) Hyperlipidemia CKD (chronic kidney disease) TIA (transient ischemic attack) COPD (chronic obstructive pulmonary disease) Anxiety Depression Hypertension Pulmonary embolism without acute cor pulmonale (HCC) Uncontrolled type 2 diabetes mellitus (HCC) Chest pain ASSESSMENT & PLAN A-fib with RVR: unclear precipitating etiology. Patient on bystolic, switched to coreg dose equivalent is 25mg BID, increased to 37.5mg BID, ordered IV metoprolol prn for HR >110. Hol d off on cardizem gtt. Last echo showed EF >70%. Monitor on telemetry. Continue eliquis. Chest pain: atypical with palpable tenderness over the sternum, but no costochondral tender ness. also has epigastric tenderness possibly GERD. Recent stress test 10/24 was negative fo r ischemia. EKG without ischemic changes.Trend troponins. Tylenol prn for pain. Also on prot duane. WARD: continue CPAP Hyperlipidemia: continue statin, also on fenofibrate. CKD: stable, avoid nephrotoxins. TIA: continue aspirin, statin. COPD: stable, continue home INH. Developmental delay/Anxiety/depression: stable, continue abilify, lamictal, paxil Hypertension: elevated on admission, but improved now. Continue home anti-hypertensives and monitor. Pulmonary embolism: in 10/24. Continue eliquis. Uncontrolled type 2 diabetes mellitus: continue levemir and high dose SSI, monitor BS, chec k a1c. Disposition: ovservation Code Status: Prior Primary Care Physician: Per PT None Keisha Ahn MD 02/06/2018 documented in this en counter ED Notes Conversion Transaction, Provider Unknown - 02/06/2018 1:08 PM PSTFormatting of this note m ight be different from the original. ED Notes by Brynn Frazier RN at 02/06/18 130 Author: Brynn Frazier RN Service: (none) Author Type: Registered Nurse Filed: 02/06/181307 Date of Service: 02/06/181307 Status: Signed Electrical Maintenance Man: Brynn Frazier RN (Registered Nurse) Bedside report given to EVE Adhikari. Brynn Frazier RN 02/06/181307 Reynaldo Landin DO - 02/06/2018 7:37 AM PSTFormatting of this note might be different f rom the original. ED Provider Notes by Reynaldo Prather DO at 02/06/18736 Author: Reynaldo Prather DO Service: (none) Author Type: Physician Filed: 02/06/18 1854 Date of Service: 02/06/18736 Status: Signed Electrical Maintenance Man: Reynaldo Prather DO (Physician) Formerly [facility] Department of Emergency Medicine 7:38 AM History of Present Illness Patient Identification Norah Gr is a 62 y.o. male. Patient information was obtained from patient. History/Exam limitations: none. Patient presented to the Emergency Department by: Car Chief Complaint Chief Complaint Patient presents with Chest Pain The patient presents to ED with complaints of chest pain. Onset of symptoms was a few hours ago, with a constant course since that time. The symptoms are described to be of moderate s everity. The patient describes the quality and location of the symptoms as the following: ch est pain. Patient also complains of generalized body aches, hyperglycemia (350 this morning) , nausea. Patient denies fever, vomiting, and any other symptoms at this time. Nothing make s the pain better or worse. Patient reports he took his blood pressure medication a few remi rs ago. No other care prior to arrival. Patient reports he has been taking his medications, including his Eliquis. Patient reports he lives by himself. PCP: Per PT None Past Medical History Diagnosis Date Acute pulmonary embolism (HCC) 10/14/2017 Anxiety ARF (acute renal failure) (HCC) 03/02/2013 Atrial fibrillation (HCC) Basal cell carcinoma 09/26/2012 arm and back COPD (chronic obstructive pulmonary disease) (HCC) 03/02/2013 hypoxemia on 2 lts nc Depression Development delay Diabetes mellitus type II Facial droop 07/08/2013 GIB (gastrointestinal bleeding) 03/02/[address] Nur, rectal ulcers, nodule of GE junction Hypercholesterolemia 07/08/2013 Hyperlipidemia Hypertension emt intermediate (current) use of 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 Obesity, Class I, BMI 30-34.9 07/08/2013 WARD (obstructive sleep apnea) 08/11/2012 does not use CPAP because of the noise Other chronic pain Renal failure Stroke (HCC) TIA (transient ischemic attack) Unspecified visual disturbance reading glasses Past Surgical History Procedure Laterality Date ABDOMINAL SURGERY CHOLECYSTECTOMY CHOLECYSTECTOMY, LAPAROSCOPIC N/A 09/12/2012 Procedure: LAPAROSCOPIC - CHOLECYSTECTOMY; Surgeon: Jevon Vargas DO; Location: [facility] MAIN OR; Service: General; Laterality: N/A; COLONOSCOPY COLONOSCOPY N/A 03/04/2013 Procedure: COLONOSCOPY; Surgeon: Howie Gibson MD; Location: [facility] ENDOSCOPY; Service: Gastroen terology; Laterality: N/A; ESOPHAGOGASTRODUODENOSCOPY N/A 03/03/2013 Procedure: ESOPHAGOGASTRODUODENOSCOPY; Surgeon: Howie Gibson MD; Location: [facility] ENDOSCOPY; Se rvice: Gastroenterology; Laterality: N/A; HERNIA REPAIR N/A 07/03/2013 Procedure: LAPAROSCOPIC - HERNIA - INCISIONAL; Surgeon: Jevon Vargas DO; Location: [facility] MAIN OR; Service: General; Laterality: N/A; KNEE SURGERY rt knee, patella LEG SURGERY LLE SKIN BIOPSY SKIN CANCER EXCISION Left 10/10/2012 Procedure: EXCISION - SKIN CANCER; Surgeon: Sy Fierro MD; Location: [facility] MAIN OR; Service: Plastics; Laterality: Left; upper arm and upper back w/frozen section SKIN LESION EXCISION Left 05/05/2014 Procedure: EXCISION - LESION - FROZEN SECTION; Surgeon: Sy Fierro MD; Location: [facility] MAIN OR; Service: Plastics; Laterality: Left; forearm UNLISTED PROCEDURE ARTHROSCOPY UPPER GASTROINTESTINAL ENDOSCOPY Prior to Admission medications Medication Sig Start Date End Date Taking? Authorizing Provider Albuterol Sulfate (VENTOLIN HFA IN) Inhale 2 puffs into the lungs as needed. 108 mcg/act Historical Provider Dtabc-X-Qnautzfzoqzsd (BEANO) TABS Take 150 Units by mouth 3 (three) times daily as needed (As needed for gas). Historical Provider amLODIPine (NORVASC) 10 MG tablet Take 0.5 tablets by mouth daily. 10/18/17 Bruno devine MD antipyrine-benzocaine (AURALGAN) otic solution Place 4 drops into both ears daily. Histo rical Provider apixaban (ELIQUIS) 5 MG tablet Take 1 tablet by mouth 2 (two) times daily. 10/18/17 Bruno Burnham MD ARIPiprazole (ABILIFY) 10 MG tablet Take 10 mg by mouth daily. Historical Provider aspirin 81 MG tablet Take 81 mg by mouth daily. Historical Provider calcium carbonate (TUMS) 500 MG chewable tablet Take 500-1,000 mg by mouth daily as needed. For GERD Historical Provider clonazePAM (KLONOPIN) 1 MG tablet Take 1 mg by mouth daily. Historical Provider cloNIDine (CATAPRES) 0.1 mg/24 hr APPLY 1 NEW PATCH WEEKLY DIRECTED 01/19/18 Mik Diego DO fenofibrate (TRIGLIDE) 160 MG tablet Take 160 mg by mouth daily. Historical Provider gabapentin (NEURONTIN) 100 MG capsule Take 100 mg by mouth every evening. Historical Pro vider HYDROcodone-acetaminophen (NORCO) 5-325 MG per tablet Take 1 tablet by mouth every 6 (six) hours as needed for Pain. Historical Provider hydrOXYzine (VISTARIL) 25 MG capsule Take 25 mg by mouth 3 (three) times daily as needed fo r Itching. Historical Provider insulin detemir (LEVEMIR) 100 UNIT/ML injection Inject 30 Units into the skin 2 (two) times daily. Inject 45 units subcutaneous at bedtime Patient taking differently: Inject 45 Units into the skin nightly. 10/18/17 Bruno devine MD lamoTRIgine (LAMICTAL) 200 MG tablet Take 200 mg by mouth daily. Historical Provider sfcghbgoq-qqoztnep-dhfkjwxdd hydroxide-simethicone Take 40 mLs by mouth daily as needed. Historical Provider lisinopril (ZESTRIL) 40 MG tablet Take 1 tablet by mouth daily for 30 days. 10/18/17 8 Bruno Burnham MD lithium (LITHOBID) 300 MG CR tablet Take 300 mg by mouth daily. Historical Provider Mometasone Furo-Formoterol Fum (DULERA) 100-5 MCG/ACT AERO Inhale 2 puffs into the lungs 2 (two) times daily. Historical Provider nebivolol (BYSTOLIC) 10 MG tablet Take 10 mg by mouth every evening. Hold for Dizziness and Heart Rate <65 Historical Provider nitroGLYCERIN (NITROSTAT) 0.[address] 0.4 mg under the tongue every 5 (five) min utes as needed. Historical Provider NOVOLOG 100 UNIT/ML injection INJ 3U SUB-Q TID(AC) AND INJECT SUBCUTANEOUSLY PER SLIDING SC SUSAN 1-70= 2U, 71-100=3U, 101-120= 4U, 121-150=5U, 151-180=6U, 181-210= 7U, 211- Patient taking differently: Inject 15 units 3 times a day with meals 04/23/13 Bang Yeh MD omeprazole (PRILOSEC) 20 MG capsule Take 20 mg by mouth 2 (two) times daily with meals. Historical Provider ondansetron (ZOFRAN-ODT) 4 MG disintegrating tablet Take 4 mg by mouth every 6 (six) hours as needed for Nausea. Historical Provider PARoxetine (PAXIL) 20 MG tablet Take 10 mg by mouth daily. 10/06/17 Mik sanchez DO polyethylene glycol (GLYCOLAX) powder DISSOLVE 17GM IN LIQUID AND DRINK BY MOUTH EVERY DAY 04/23/13 Bang Yeh MD pravastatin (PRAVACHOL) 80 MG tablet Take 80 mg by mouth nightly. Historical Provider SPIRIVA HANDIHALER 18 MCG inhalation capsule INHALE THE CONTENTS OF 1 CAPSULE DAILY 8 Mik Diego DO spironolactone-hydrochlorothiazide (ALDACTAZIDE) 25-25 MG per tablet Take 1 tablet by mouth daily. 10/09/17 Historical Provider tamsulosin (FLOMAX) 0.4 MG capsule Take 0.4 mg by mouth 2 (two) times daily. Administer 30 minutes after the same meal each day. Capsules should be swallowed whole; do not crush, chew , or open Historical Provider warfarin (COUMADIN) 4 MG tablet TWICE DAILY Historical Provider Allergies Allergen Reactions Nitroglycerin Hives Vitamin B12 Rash Social History Social History Marital status: Spouse name: N/A Number of children: 1 Years of education: s. college Occupational History disabled Social History Main Topics Smoking status: Never Smoker Smokeless tobacco: Never Used Alcohol use 0.0 oz/week 1 - 2 Cans of beer per week Comment: occassional Drug use: No Sexual activity: Not Currently Other Topics Concern Not on file Social History Narrative Lives alone x 1 wk, moved from [facility], , 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 2 falls in the last 6 months. Family History Problem Relation Age of Onset Heart disease Father Heart disease Sister Diabetes type II Sister Heart Problems Brother Review of Systems Constitutional: Positive for generalized body aches, hyperglycemia (350 this morning) Negative for fever, chills Eyes: Negative for vision changes Nose: Negative for congestion Throat: Negative for sore throat CV/Resp: Positive for chest pain Negative for flzddbnut-cv-urjvpl, cough GI: Positive for nausea Negative for abdominal pain, vomiting, or diarrhea : Negative for urinary problems Musculoskeletal: Negative for back pain, joint pain Skin: Negative for rash Neuro/Psych: Negative for headache Endo/heme/Lymph: Negative for easy bruising All other systems reviewed and negative except as noted. Physical Exam BP (!) 206/158 (BP Location: Right upper arm) | Pulse 123 | Temp 97.1 F (36.2 C) (Ora l) | Resp 18 | SpO2 96% Vital signs interpretation: hypertensive, tachycardic, otherwise WNL. Pulse Oximetry interpretation: Normal General: Alert, in no apparent distress Eyes: Normal inspection ENT: MMM Neck: Normal inspection Cardiovascular: Irregularly irregular, tachycardic No murmurs Respiratory: Breath sounds normal bilaterally No rales, wheezing or rhonchi Abdomen: Soft, non-tender, non-distended No guarding or rebound Genitourinary: Deferred Rectal exam: Deferred Back: Normal inspection Extremities: No edema Distal pulses intact Skin: Color normal Warm and dry No rash Neuro: Alert, no AMS No gross motor/sensory deficits Medical Decision Making and Emergency Department Course ED Department Course Patient presents to ED with complaints of chest pain. My DDx includes, but is not limited t o: ACS, PE, PNA, Dissection, PTX, pericarditis, myocarditis, costochondritis, GERD, esophage al injury, muscle strain, vs other. Will order CXR, labs, Cardizem, and aspirin, and reeval uate the patient. The pt reports he has been compliant with his eliquis making PE less likely. He is in A fib with RVR. I do not see any rate control meds on his list. I will start the pt on diltiazem. 8:42 AM Troponin resulted negative. BNP resulted normal. Cardiac panel resulted showing low MCV at 79.9, low sodium at 134, elevated glucose at 366, low albumin at 3.1, low A/G at 0.7 , elevated Alk Phos at 116 8:43 AM CXR resulted showing no acute cardiopulmonary findings. 9:21 AM Influenza A and B resulted negative. With the pt's A-fib and CP I feel he warrants further evaluation and treatment. I will rec ommend admission. 9:58 AM Discussed patient's case with Dr. Ahn, hospitalist, who accepts the patient for admission. 10:08 AM UA resulted showing greater than 500 of glucose. Records Reviewed Old medical records. Nursing notes. Previous ED visits for similar and unrelated complaints. Laboratory Evaluation Results Procedure Component Value Ref Range Date/Time Urinalysis (reflex to micro/reflex to culture) [[id number]] (Abnormal) Collected: 02/0651 Order Status: Completed Specimen: Urine, Clean Catch Updated: 02/06/18 1003 COLOR UA YELLOW CLARITY CLEAR Specific [place], UA 1.027 1.002 - 1.030 LEUKOCYTE ESTERASE NEGATIVE NEGATIVE NITRITE NEGATIVE NEGATIVE UROBILINOGEN NORMAL <1.1 mg/dL PROTEIN NEGATIVE NEGATIVE mg/dL PH,URINE 5.0 5.0 - 8.0 BLOOD NEGATIVE NEGATIVE KETONES NEGATIVE NEGATIVE mg/dL BILIRUBIN NEGATIVE NEGATIVE GLUCOSE >500 (A) NEGATIVE mg/dL INFLUENZA A AND B [[id number]] Collected: 02/06/1847 Order Status: Completed Updated: 02/06/1816 INFLUENZA A NEGATIVE NEGATIVE INFLUENZA B NEGATIVE NEGATIVE Flu Swab [[id number]] Collected: 02/06/1842 Order Status: Completed Specimen: Nasal from Nasal Swab Updated: 02/06/1848 Flu Swab Collection SPECIMEN RECEIVED IN LAB Cardiac Panel [[id number]] (Abnormal) Collected: 01/01/19 0803 Order Status: Completed Updated: 02/06/18 0842 WBC 7.60 3.80 - 11.00 K/uL RBC 5.50 4.20 - 5.70 M/uL HGB 15.3 13.2 - 17.0 g/dL HCT 43.9 39.0 - 50.0 % MCV 79.9 (L) 80.0 - 100.0 fl MCH 27.9 27.0 - 34.0 pg MCHC 34.9 32.0 - 35.5 g/dL RDW SD 39.4 37 - 53 fl PLT 257 150 - 400 K/uL MPV 7.8 fl DIFF TYPE AUTOMATED NEUTROPHILS 45.27 % LYMPHOCYTES 39.10 % MONOCYTES 11.34 % EOSINOPHILS 3.32 % BASOPHILS 0.97 % NEUTROPHILS ABS 3.44 1.90 - 7.40 K/uL LYMPHOCYTES ABS 2.97 1.00 - 3.90 K/uL MONOCYTES ABS 0.86 (H) 0.00 - 0.80 K/uL EOSINOPHILS ABS 0.25 0.00 - 0.50 K/uL BASOPHILS ABS 0.07 0.00 - 0.10 K/uL SODIUM 134 (L) 135 - 145 mmol/L POTASSIUM 3.6 3.5 - 4.9 mmol/L CHLORIDE 100 99 - 109 mmol/L CO2 25 23 - 32 mmol/L ANION GAP AGAP 14 5 - 20 mmol/L GLUCOSE 366 (H) 65 - 99 mg/dL BUN 22 8 - 25 mg/dL CREATININE 1.1 0.70 - 1.30 mg/dL BUN/CREAT 20 CALCIUM 9.0 8.5 - 10.5 mg/dL TOTAL PROTEIN 7.5 6.3 - 8.2 g/dL Albumin 3.1 (L) 3.3 - 4.8 g/dL GLOBULIN 4.4 1.3 - 4.9 g/dL A/G 0.7 (L) 1.0 - 2.4 TBIL 0.6 0.1 - 1.5 mg/dL ALK PHOS 116 (H) 35 - 115 U/L AST 20 10 - 45 U/L ALT 23 10 - 65 U/L EGFR >60 >60 mL/min/1.73m2 CPK 99 55 - 400 U/L INR 1.0 APTT 25 23 - 32 seconds MMB 4.3 (H) 0.5 - 3.6 ng/mL CK-MB Index 4.3 Troponin I [[id number]] Collected: 02/06/18802 Order Status: Completed Specimen: Blood Updated: 02/06/18841 TROPONIN I 0.026 0.00 - 0.10 ng/mL BNP [[id number]] Collected: 02/06/18802 Order Status: Completed Specimen: Blood Updated: 02/06/18836 BRAIN NATRIURETIC PEPTIDE 18.1 0 - 100 pg/mL I personally reviewed the lab results and they have been posted to the chart. Pertinent po sitive and negative findings have been addressed appropriately. Radiology and EKG Evaluation Imaging Results XR Chest PA and Lateral (Final result) Result time 02/06/18 08:38:26 Final result by Ger Boles DO (02/06/18 08:38:26) Impression: 1. No acute cardiopulmonary findings. Narrative: NORAH GR 1955 62 years Male XR CHEST 2 VIEW FRONTAL AND LATERAL 02/06/2018 8:30 AM INDICATION: Chest pain COMPARISON: 01/16/2018, 10/23/2017 TECHNIQUE: Two view chest, PA and lateral views FINDINGS: The heart is normal in size. No focal airspace opacification, pleural effusion, o r pneumothorax. EKG @ 0729 Atrial fibrillation with RVR at [address] depression Interpreted by Reynaldo Prather DO at time of service. ED Diagnoses Final diagnoses Atrial fibrillation with RVR (HCC) Chest pain, unspecified type Chronic anticoagulation Disposition: ED Disposition ED Disposition Condition Comment Admit/Observation Bed request special needs: telemetry Diagnosis?: atrial fibrillation with RVR, Chest pain, chronic anticoagulation Follow-up Information None Discharge Medications: New Prescriptions No new medications Dictation software, [place], used which may contain error for similar sounding words even af ter review. Personal communication requested for any clarification. Procedures Additional Documentation Procedures Attending Provider Note: Reynaldo Simmons DO personally performed the services descri bed in this documentation, as scribed by Cassie Galvan in my presence, and it is both accurat e and complete. Chart Reviewed and Completed: 02/06/2018 12:22 PM Scribe: Kari Baker, scribing for and in the presence of Reynaldo Prather DO. Signed by: Kari Lee 02/06/2018 12:22 PM Reynaldo Prather DO 02/06/18 1854 documented in this encounter Miscellaneous Notes Miscellaneous - Ashley Vale OTR/Kary - 02/07/2018 10:55 AM PSTFormatting of this note mi ght be different from the original. Treatment Plan by TORY Gary at 02/07/18 1055 Author: TORY Gary Service: (none) Author Type: Occupational Therapist Filed: 02/07/18 1300 Date of Service: 02/07/18 1055 Status: Signed Electrical Maintenance Man: TORY Gary (Occupational Therapist) OCCUPATIONAL THERAPY EVALUATION OT Received On: 02/07/18 Reason for Treatment: Other (comment) (admitted with AVR, chest pain) Requires OT Follow Up: Awaiting tx order OT Eval/Reassessment Date: 02/07/18 Assistance Required: Other (comment) (supervision) Nat Instructor Needed: No Family/Caregiver Present: No Recommendation: Home with daytime assist, Home with nighttime assist (recommend increased C G hours ) Equipment Recommended: Shower chair with back Requires OT Follow Up: Awaiting tx order Recommendation Comments Pt presents with developmental delay at baseline. He presents with decreased cognition (unc lear if he is at baseline during session). Pt present with decreased path finding when navig ating back to his room in novel environment. He presents with decreased accuracy with locati on of medication days/ times which can impact his safety with medication management. Recomme nd increased CG hours to promote safety with daily tasks such as medication management. Jules aborated with RN, CM and MD regarding recommendations. Plan Treatment Interventions: ADL retraining, IADL retraining, Functional transfer training, Fun ctional dynamic activities, UE strengthening, AROM, Therapeutic exercises, Endurance trainin g, Cognitive reorientation, Sensory integration, Patient/Family training, Equipment eval/edu cation, Neuro muscular reeducation, Fine motor coordination activities, Compensatory techniq ue education OT Frequency: 3-5 x/wk Care Duration (Days): 10 Days Requires OT Follow Up: Awaiting tx order Summary Orders received/ verified. Chart reviewed with PMH pertinent to OT eval including "devel opmental delay, anxiety/depression, paroxysmal atrial fibrillation,diabetes mellitus type 2, COPD not on oxygen, WARD, TIA, HTN, HLD, recurrent callsto EMS for chest pain (5-6 in t he past month), recently diagnosis of acute pulmonary embolism on apixaban 10/24,who presen ts with chest pain". Pt engaged in OT eval, education and ADLs. Pt may benefit from skilled OT follow up for ADLs, AE training, functional t/f training. Pt left supine in bed, HOB elev ated. RN notified, needs in reach. Focus for next session: navigation with paths, ADLs Follow up OT only? [] Yes [x] No Precautions Other Precautions: fall risk Home Environment Bathroom Equipment: (none) Additional Comments: Please refer to PT note for home environment. Pt has assist 1x/wk for 5 hours to cleaning, dishes/ cooking. Pt states he has meals on wheels for dinner. Pt [place] Prior Function Level of [place]: Independent with functional mobility, Independent with ADLs, Indepe ndent with IADLs Falls in Past Year: Yes (pt states about 10 falls) Lives With: Alone Receives Help From: (cg 1x/wk) Employment: Retired for age Leisure: Hobbies-yes (Comment) (geovanna) Comments: Pt states he has a friend who will help with rides sometimes. Pt states his grand mother is in the area. Pt states he has a son in the area who lives with the pt grandparents . Pt does spend some [facility] at [facility]. Pt states he showers 1x/wk when the caregiver i s present. ADL Eating Assistance: Independent Eating Deficit: None Bathing Assistance: (dry tub t/f compelted with supervision) Functional Assistance: Supervision Additional Comments: Pt compelted functional with supervision for IV pole and for safety. Jessie e ambulated to inpatient rehab to complete dry shower t/f. He compelted without use of grab bars and with supervision. Pt returned to room seated in chair to eat independently. He enga ged functional cognitive tasks while seated. He returned to seated in bed. Vision-Basic Assessment Current Vision: Reading glasses Cognition Overall Cognitive Status: (appropriate for developmemtal age) Orientation Level: Oriented, Appropriate for developmental age Oriented: x 4 Comments: Per RN pt with developmental delay. He demonstrates some need for increase of dir ections with path finding. Pt engaged in listening to explanation of medication and then to answer questions with around 50% accuracy unable for pt to complete worksheet d/t to no read ing glasses. He compelted identification of days/ times for medications with around 90% accu racy. He follows up to 2/3 of directions. Sensation Additional Comments: Some tinglying left leg he states as nomal. Pain in left shoulder d/t fall about 5 mths ago. 010 currently. RUE Assessment: Within Functional Limits LUE Assessment: Within Functional Limits (pain/ discomfort wtih some motions per pt) Hand Function Gross Grasp: Functional (right handed) Functional Gross Grasp: Able to hold objects in dominant hand, Able to hold objects in non- dominant hand Coordination: Functional Assessment Assessment: Decreased ADL status, Decreased cognition, Decreased high-level ADLs, Decreased self-care trans Prognosis: Good, With family Goal Formulation: Patient Activity Tolerance: Patient tolerated treatment well Safety Devices in Place: Yes Type of Devices: Call lite in place, RN notified ADL Goals Pt Will Perform All ADL's: (will engage path finding tasks to promote safety w/ 1-2 VC) Functional Transfer Goals Pt Will Perform All Functional Transfers: (will complete ADLs with set up as needed) Barriers to d/c at this time include: [] Home environment [x] Family support [] Equipment needs [x] Cognitive deficits impacting functional independence [] Physical deficits impacting functional independence [] Self-care deficits impacting functional independence [] Other Pain The patient did not demonstrate any signs of symptoms of pain throughout OT session. Report ed no pain at rest. Reports some discomfort during some motions. No complaints of pain durin g most of session. RN in room to administer some medication during session. Education Completed: [x] Role of OT [x] Fall prevention (handout provided- educated on decrease clutter, use of good lighting, clear pathways etc. ) [x] Home modifications [x] Functional transfer training [x] Current level of assist and compensatory techniques for increased independence [x] Discharge recommendations for ADL/IADL participation Completed with: [x] Patient [] Spouse [] Significant other [] Family [] C aregiver [] Other Completed by: [x] Verbal education [] Demonstration [] Handout [] Other: Response to Education: [x] Stated Understanding [] Reinforcement necessary [x] Returned demonstration [x] Demonstrated understanding [] No evidence of learning [] Refused Low - 07687 Moderate - 21526 High - 42142 History [x] Brief history including review of medical record [] Expanded review of medica l records; additional review of physical, cognitive, or psychosocial skills [] Review of me dical records; extensive additional review of physical, cognitive, or psychosocial skills Examination [] Identification of 1-3 performance deficits [x]Identification of 3-5 perfo rmance deficits [] Identification of 5 or more performance deficits Decision Making [] No comorbidities that affect occupational performance; modification of tasks or assistance is not needed to complete eval [x] May present with comorbidities; mini mal to moderate modification of tasks or assistance is needed to complete eval [] Presents with comorbidities; significant modification of tasks or assistance is needed to complete e angelique Clinical Decision Making Complexity: [x] Low 40513 [] Moderate 50045 [] High 49748 lan of Care - C onversion Transaction, Provider Unknown - 02/07/2018 10:14 AM PSTFormatting of this note irvin ht be different from the original. Plan of Care by Krishna Monteiro RN at 02/07/18 1014 Author: Krishna Monteiro RN Service: (none) Author Type: Registered Nurse Filed: 02/07/18 1014 Date of Service: 02/07/18 1014 Status: Signed Electrical Maintenance Man: Krishna Monteiro RN (Registered Nurse) Problem: Safety Goal: Patient will be injury free during hospitalization Assess and monitor vitals signs, neurological status including level of consciousness and o rientation. Assess patient's risk for falls and implement fall prevention plan of care and i nterventions per hospital policy. Ensure arm band on, uncluttered walking paths in room, adequate room lighting, call light a nd overbed table within reach, bed in low position, wheels locked, side rails up per policy, and non-skid footwear provided. Outcome: Progressing Call light within reach, pt calls PRN, Pt A/O X4, pathways clear, adequate lighting iChrista Berkowitz V PT - 02/07/2018 9:55 AM PSTFormatting of this note might be diffe rent from the original. Treatment Plan by Christa Higgins V PT at 02/07/18 0955 Author: Christa Matute PT Service: (none) Author Type: Physical Therapist Filed: 02/07/18 1025 Date of Service: 02/07/1855 Status: Signed Electrical Maintenance Man: Christa Higgins V PT (Physical Therapist) PHYSICAL THERAPY EVALUATION PT Received On: 02/07/18 Reason for Treatment: Deconditioning Requires PT Follow Up: No PT Eval/Reassessment Date: 02/07/18 Assistance Required: Independent Nat Instructor Needed: No Recommendations: Prior Setting Equipment Recommended: None PT Ready for Discharge: Yes Recommendation Comments: Pt is at baseline, has no questions/concerns for PT at this time, pt is appropriate for discharge from skilled PT services at this time. Plan Treatment/Interventions: Discharge skilled PT services PT Frequency: Evaluation only Summary Comments: 62 yo M pt presents to hospital for chest pain. Pt presents reclined in bed, awak e and alert. Pt answered eval questions, performed bed mobility to sit at EOB, stood, and am bulated into hallway. Pt returned to room, took 1 min standing rest break in bathroom, retur ronald to bed. Precautions Other Precautions: fall risk Cognition Overall Cognitive Status: Impaired Orientation Level: Oriented Oriented: x 4 Comments: cognitive developmental delays Assessment of Patient Status Assessment of Patient Status: Other (comment) (Pt at baseline ) Prognosis: Other (comment) (Pt at baseline) Home Environment Type of Home: Apartment ground level Home Exterior Layout: Entry steps none Home Interior Layout: Lives on main level with bedroom/bathroom Bathroom Shower/Tub: Tub/shower unit Bathroom Toilet: Standard Bathroom Accessibility: Accessible via wheelchair Home Equipment: None Additional Comments: "did live in assisted living but it cost too much" Prior Function Level of [place]: Independent with functional mobility, Independent with ADLs, Indepe ndent with IADLs Falls in Past Year: Yes ("about 10 times") Lives With: Alone Receives Help From: Other (Comment) (has some help come in once a week to make meal and kylee ck in ) Employment: Retired for age (used to work at [employer]) Leisure: Hobbies-yes (Comment) (likes to go to [employer]) RUE Assessment: Within Functional Limits LUE Assessment: Within Functional Limits RLE Assessment: Within Functional Limits LLE Assessment: Within Functional Limits Sensation Light Touch: No apparent deficits FUNCTIONAL MOBILITY Bed Mobility Supine to Sit: Supervision Sit to Supine: Supervision Transfers Sit to/from Stand: Standby assist Ambulation Maximal Ambulation Distance (feet): 200 Total Ambulation Distance (feet): 200 Ambulation Assistance: Standby assist Distance limited by?: Patient's ability (Pt wanted to watch more TV) Pattern: Within Functional Limits Assistive Device: None Activity Tolerance: Patient tolerated treatment without report of fatigue Nurse Made Aware: EVE Gross Safety Devices in Place: Yes (call soni in reach) The patient demonstrated no indication of pain during therapy session. Education Completed: Education Topics: [x] Rationale for PT [x] PT POC [x] DC planning [x] Precautions [] Exercises [x] Bed mobility [x] Transfer training with hand placement [x] Gait training [] Stair training [] Use of gait belt [] Other Completed with: [x] Patient [] Spouse [] Significant other [] Family [] C aregiver [] Other Completed by: [x] Verbal education [x] Demonstration [] Handout [] Other: Response to Education: [x] Stated Understanding [] Reinforcement necessary [x] Returned demonstration [x] Demonstrated understanding [] No evidence of learning [] Refused Low - 61300 Moderate - 26496 High - 14924 History [] no personal factors &/or comorbidities [] 1-2 personal factors &/or comorbiditi es [x] 3 or more personal factors &/or comorbidities Examination [x] 1-2 elements [] 3 elements [] 4 or more elements Clinical Presentation [x] stable [] evolving [] unstable Clinical Decision Making Complexity: [x] Low 66851 [] Moderate 30475 [] High 9 7163 Past Medical History Diagnosis Date Acute pulmonary embolism (HCC) 10/14/2017 Anxiety ARF (acute renal failure) (HCC) 03/02/2013 Atrial fibrillation (HCC) Basal cell carcinoma 09/26/2012 arm and back COPD (chronic obstructive pulmonary disease) (HCC) 03/02/2013 hypoxemia on 2 lts nc Depression Development delay Diabetes mellitus type II Facial droop 07/08/2013 GIB (gastrointestinal bleeding) 03/02/[address] Nur, rectal ulcers, nodule of GE junction Hypercholesterolemia 07/08/2013 Hyperlipidemia Hypertension skilled nursing (current) use of 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 Obesity, Class I, BMI 30-34.9 07/08/2013 WARD (obstructive sleep apnea) 08/11/2012 does not use CPAP because of the noise Other chronic pain Renal failure Stroke (HCC) TIA (transient ischemic attack) Unspecified visual disturbance reading glasses lan of Care - Conver ivana Transaction, Provider Unknown - 02/06/2018 8:17 PM PST Plan of Care by Jaycee Partida RN at 02/06/182016 Author: Jaycee Partida RN Service: (none) Author Type: Registered Nurse Filed: 02/06/182016 Date of Service: 02/06/182016 Status: Signed Electrical Maintenance Man: Jaycee Partida RN (Registered Nurse) Problem: Pain Goal: Patient's pain/discomfort is manageable Assess and monitor patient's pain using appropriate pain scale. Collaborate with interdisci plinary team and initiate plan and interventions as ordered. Re-assess patient's pain level approximately 1-2 hours after pain management intervention. Premedicate as needed. Outcome: Progressing Pt pain is at tolerable levels. Pt has chronic pain Problem: Safety Goal: Patient will be injury free during hospitalization Assess and monitor vitals signs, neurological status including level of consciousness and o rientation. Assess patient's risk for falls and implement fall prevention plan of care and i nterventions per hospital policy. Ensure arm band on, uncluttered walking paths in room, adequate room lighting, call light a nd overbed table within reach, bed in low position, wheels locked, side rails up per policy, and non-skid footwear provided. Outcome: Progressing Pt uses call light appropriately Problem: Daily Care Goal: Daily care needs are met Assess and monitor ability to perform self care and identify potential discharge needs. Outcome: Progressing Order placed for case management as pt needs help with medications and diabetes management Problem: Glucose Imbalance Goal: Clinical indication of glucose balance is achieved Outcome: Progressing Blood sugars remain high. Pt educated on importance of glucose control lan o f Care - Conversion Transaction, Provider Unknown - 02/06/2018 6:37 PM PSTFormatting of thi s note might be different from the original. Plan of Care by Zeynep Black RN at 02/06/181836 Author: Zeynep Black RN Service: (none) Author Type: Registered Nurse Filed: 02/06/181836 Date of Service: 02/06/181836 Status: Signed Electrical Maintenance Man: Zeynep Black RN (Registered Nurse) Problem: Discharge Barriers Goal: Patient's discharge needs are met Collaborate with interdisciplinary team and initiate plans and interventions as needed. Outcome: Progressing Discharge barriers identified in pt not monitoring BP at home (multiple falls over last yea r, concerning in inability to monitor due to no home BP machine). Pt appears to be taking me dications incorrectly (see prior note by this RN; provider approached and ordered OT so that med management could be engaged while here). Pt not aware he should be recording his blood sugars at home and taking to provider visits (best practice, aware and understands). Pt does not have appropriate device to administer Spiriva (has been taking PO). Several questions regarding best nursing discharge plan implementation at discharge; interv entions and evaluation in place. Problem: Glucose Imbalance Goal: Patient's discharge needs are met Collaborate with interdisciplinary team and initiate plans and interventions as needed. Outcome: Progressing Discharge barriers identified in pt not monitoring BP at home (multiple falls over last yea r, concerning in inability to monitor due to no home BP machine). Pt appears to be taking me dications incorrectly (see prior note by this RN; provider approached and ordered OT so that med management could be engaged while here). Pt not aware he should be recording his blood sugars at home and taking to provider visits (best practice, aware and understands). Pt does not have appropriate device to administer Spiriva (has been taking PO). Several questions regarding best nursing discharge plan implementation at discharge; interv entions and evaluation in place. iscel laneous - Conversion Transaction, Provider Unknown - 02/06/2018 3:26 PM PSTFormatting of th is note might be different from the original. Medication History by Jenniffer Martínez RPH at 02/06/18 1526 Author: Jenniffer Martínez RPH Service: Pharmacy Author Type: Pharmacist Filed: 02/06/18 1526 Date of Service: 02/06/181525 Status: Signed Electrical Maintenance Man: Jenniffer Martínez RPH (Pharmacist) Rx Admission Medication History Note I have reviewed the medication history for appropriate doses obtained by: Pharmacy Medicat ion History Gift Basket Packer. After reviewing the home medication list : I agree with the home medication list. - Patient was diagnosed with a PE in October 2017 and was discharged with Eliquis. Patien t has not filled since 10/18/17 for a 30 day supply and he states he is not taking. I called the RN who asked the patient why and he states his doctor stopped it. I discussed with Dr. Bj dejesus and the decision was made to continue Eliquis due to history. - Removed clonidine patch and spironolactone/HCTZ as patient states he's not taking. They a re not on his home medication list or in his bubble pack. Discussed with admitting provider and discontinued inpatient. - Patient states he's not taking Spiriva or Dulera. Dulera was last filled in 2014. Due to patient's history of COPD, both medications were started inpatient after discussion with pro vider - Removed albuterol inhaler, Beano, Auralgan, hydroxyzine, ondansetron, and warfarin as pat ient is no longer taking Please Review and Order Home Medications as necessary. Thanks Jenniffer Martínez RPH 02/06/2018 3:08 PM >> Dorota Altamirano CPhT 02/06/2018 12:13 Rx Medication History Gift Basket Packer Note Patients Preferred Pharmacy has been updated in EPIC: [facility] - [place], [place] - [address] [address] [facility] [address] [place] [address] [place] [address] AT [facility] of [facility] on [facility] & [facility] [address] [facility] [id number] [facility] [place], [place] - [address] [place] [id number] Patients Allergies have been updated and marked as reviewed: yes Nitroglycerin and Vitamin b12 The following changes were made to the allergy list (if any): N/A Medication History provided by: Patient, Patient Medication List and [employer] Software Info Follow-up Issues: None - Pending Pharmacist Review High Risk Medications (dual source verification needed): Insulin and Anticoagulants Changes made to the medication list include: FLAGGED: NITROGLYCERIN ~ Patient has allergy ADDED: DOCUSATE 250 mg ~ take 1 capsule daily at bedtime COMMENT: LEVEMIR ~ patient injects 15 units instead of 30 units twice a day and still injects 45 uni ts at bedtime Reliability of information obtained: RELIABLE Additional Comments: Patient has a medication list with him. He said all his medications t hat he takes are in a bubble package. 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 Albuterol Inhaler Beano tablets Antipyrine-benzocaine drops Apixaban 5 mg Calcium carbonate 500 mg Clonazepam 1 mg Clonidine 0.1mg/24 hour patch Hydrocodone 5/325 tabs Hydralazine 25 mg Lidocaine-Aluminum- vcjhffcsd-ajkqqzolp-wepfchihroi Mometasone 100/5 mcg/act Omeprazole 20 mg Zofran-ODT 4 mg Glycolax powder Spironolactone-hydrochlorothiazide 25/25 mg Warfarin 4 mg Medication history has been completed: *Awaiting Pharmacist Final Review* Dorota Altamirano CPhT 02/06/2018 12:03 PM docume wilson in this encounter Plan of Treatment +--------+ + + + + | Date | Type | Specialty | Care Team | Description | +--------+ + + + + | 10/16/ | Anti-coag | Anticoagulation | Brittany Zaragoza | | | 2020 | visit | | [address] | | | | | | [place], | | | | | | [place] [address] | | | | | | [phone] | | | | | | | | +--------+ + + + + documented as of this encounter Procedures + +--------+ + + + | Procedure Name | Priori | Date/Time | Associated Diagnosis | Comments | | | ty | | | | + +--------+ + + + | POC GLUCOSE | Routin | 02/07/2018 | | Results for this | | | e | 10:36 AM | | procedure are in the | | | | PST | | results section. | + +--------+ + + + | POC GLUCOSE | Routin | 02/07/2018 | | Results for this | | | e | 5:57 AM | | procedure are in the | | | | PST | | results section. | + +--------+ + + + | EXTERNAL LAB: CBC | Routin | 02/07/2018 | | Results for this | | | e | 5:38 AM | | procedure are in the | | | | PST | | results section. | + +--------+ + + + | TROPONIN I | Routin | 02/07/2018 | | Results for this | | | e | 5:38 AM | | procedure are in the | | | | PST | | results section. | + +--------+ + + + | PHOSPHORUS | Routin | 02/07/2018 | | Results for this | | | e | 5:38 AM | | procedure are in the | | | | PST | | results section. | + +--------+ + + + | MAGNESIUM | Routin | 02/07/2018 | | Results for this | | | e | 5:38 AM | | procedure are in the | | | | PST | | results section. | + +--------+ + + + | BASIC METABOLIC | Routin | 02/07/2018 | | Results for this | | PANEL | e | 5:38 AM | | procedure are in the | | | | PST | | results section. | + +--------+ + + + | TROPONIN I | Routin | 02/06/2018 | | Results for this | | | e | 11:53 PM | | procedure are in the | | | | PST | | results section. | + +--------+ + + + | POC GLUCOSE | Routin | 02/06/2018 | | Results for this | | | e | 9:39 PM | | procedure are in the | | | | PST | | results section. | + +--------+ + + + | TROPONIN I | Routin | 02/06/2018 | | Results for this | | | e | 5:57 PM | | procedure are in the | | | | PST | | results section. | + +--------+ + + + | POC GLUCOSE | Routin | 02/06/2018 | | Results for this | | | e | 4:02 PM | | procedure are in the | | | | PST | | results section. | + +--------+ + + + | POC GLUCOSE | Routin | 02/06/2018 | | Results for this | | | e | 1:53 PM | | procedure are in the | | | | PST | | results section. | + +--------+ + + + | US ABDOMEN LIMITED | Routin | 02/06/2018 | | Results for this | | | e | 11:34 AM | | procedure are in the | | | | PST | | results section. | + +--------+ + + + | URINALYSIS, REFLEX | Routin | 02/06/2018 | | Results for this | | MICROSCOPIC AND/OR | e | 9:51 AM | | procedure are in the | | CULTURE | | PST | | results section. | + +--------+ + + + | HISTORICAL | Routin | 02/06/2018 | | Results for this | | MICROBIOLOGY RESULT | e | 8:47 AM | | procedure are in the | | | | PST | | results section. | + +--------+ + + + | HISTORICAL | STAT | 02/06/2018 | | Results for this | | MICROBIOLOGY RESULT | | 8:42 AM | | procedure are in the | | | | PST | | results section. | + +--------+ + + + | XR CHEST 2 VIEWS | Routin | 02/06/2018 | | Results for this | | | e | 8:30 AM | | procedure are in the | | | | PST | | results section. | + +--------+ + + + | HISTORICAL LAB PANEL | Routin | 02/06/2018 | | Results for this | | RESULT | e | 8:03 AM | | procedure are in the | | | | PST | | results section. | + +--------+ + + + | TROPONIN I | Routin | 02/06/2018 | | Results for this | | | e | 8:03 AM | | procedure are in the | | | | PST | | results section. | + +--------+ + + + | B TYPE NATRIURETIC | Routin | 02/06/2018 | | Results for this | | PEPTIDE | e | 8:03 AM | | procedure are in the | | | | PST | | results section. | + +--------+ + + + | ECG 12 LEAD | Routin | 02/06/2018 | | Results for this | | | e | 7:29 AM | | procedure are in the | | | | PST | | results section. | + +--------+ + + + documented in this encounter Results POC Glucose (02/07/2018 10:36 AM PST) + + + + + + | Component | Value | Ref Range | Performed | Pathologist | | | | | At | Signature | + + + + + + | Glucose, | 251 (H)Comment: Testing | 65 - 99 mg/dL | EXTERNAL | | | Fingerstick | performed at [facility];[address] | | LAB | | | | [address];[place] | | | | | | [address] | | | | + + + + + + + + | Specimen | + + | | + + + +---------+ + + | Performing | Address | City/State/Zipcode | Phone Number | | Organization | | | | + +---------+ + + | EXTERNAL LAB | | | | + +---------+ + + POC Glucose (02/07/2018 5:57 AM PST) + + + + + + | Component | Value | Ref Range | Performed | Pathologist | | | | | At | Signature | + + + + + + | Glucose, | 281 (H)Comment: Testing | 65 - 99 mg/dL | EXTERNAL | | | Fingerstick | performed at [facility];[address] | | LAB | | | | [address];[place] | | | | | | [address] | | | | + + + + + + + + | Specimen | + + | | + + + +---------+ + + | Performing | Address | City/State/Zipcode | Phone Number | | Organization | | | | + +---------+ + + | EXTERNAL LAB | | | | + +---------+ + + Troponin I (02/07/2018 5:38 AM PST) + + + + + + | Component | Value | Ref Range | Performed | Pathologist | | | | | At | Signature | + + + + + + | Troponin I, | <0.02Comment: 0.00 to | 0.00 - 0.10 | EXTERNAL | | | Qual | 0.10 CONSISTENT WITH | ng/mL | LAB | | | | NORMAL POPULATION0.11 to | | | | | | 0.60 CONSISTENT WITH | | | | | | INCREASED RISK FOR | | | | | | ADVERSE OUTCOMES> 0.60 | | | | | | CONSISTENT | | | | | | WITH WHO CRITERIA FOR | | | | | | ACUTE [place] Testing | | | | | | performed at [facility];[address] | | | | | | [address];[place] | | | | | | [address] | | | | + + + [...] + +---------+ + + External Lab: CBC (02/07/2018 5:38 AM PST) + + + + + + | Component | Value | Ref Range | Performed | Pathologist | | | | | At | Signature | + + + + + + | WBC | 9.78 | 3.80 - 11.00 | EXTERNAL | | | | | K/uL | LAB | | + + + + + + | Non- | 4.82 | 4.20 - 5.70 | EXTERNAL | | | Red Blood | | M/uL | LAB | | | Cells | | | | | | Counted | | | | | + + + + + + | Hemoglobin | 13.3 | 13.2 - 17.0 | EXTERNAL | | | | | g/dL | LAB | | + + + + + + | Hematocrit, | 39.6 | 39.0 - 50.0 % | EXTERNAL | | | POC | | | LAB | | + + + + + + | MCV | 82.2 | 80.0 - 100.0 fl | EXTERNAL | | | | | | LAB | | + + + + + + | MCH | 27.6 | 27.0 - 34.0 pg | EXTERNAL | | | | | | LAB | | + + + + + + | MCHC | 33.6 | 32.0 - 35.5 | EXTERNAL | | | | | g/dL | LAB | | + + + + + + | RDW-CV | 41.1 | 37 - 53 fl | EXTERNAL | | | | | | LAB | | + + + + + + | Platelet | 230 | 150 - 400 K/uL | EXTERNAL | | | Count | | | LAB | | | Plasma | | | | | + + + + + + | MPV | 8.2 | fl | EXTERNAL | | | | | | LAB | | + + + + + + | Differentia | AUTOMATED | | EXTERNAL | | | l Type | | | LAB | | + + + + + + | % Segmented | 53.61 | % | EXTERNAL | | | | | | LAB | | | Neutrophils | | | | | + + + + + + | % | 33.98 | % | EXTERNAL | | | Lymphocytes | | | LAB | | + + + + + + | % Monocytes | 8.29 | % | EXTERNAL | | | | | | LAB | | + + + + + + | % | 3.75 | % | EXTERNAL | | | Eosinophils | | | LAB | | + + + + + + | % Basophils | 0.37 | % | EXTERNAL | | | | | | LAB | | + + + + + + | Absolute | 5.24 | 1.90 - 7.40 | EXTERNAL | | | Segmented | | K/uL | LAB | | | Neutrophils | | | | | + + + + + + | Absolute | 3.32 | 1.00 - 3.90 | EXTERNAL | | | Lymphocytes | | K/uL | LAB | | + + + + + + | Absolute | 0.81 (H) | 0.00 - 0.80 | EXTERNAL | | | Monocytes | | K/uL | LAB | | + + + + + + | Absolute | 0.37 | 0.00 - 0.50 | EXTERNAL | | | Eosinophils | | K/uL | LAB | | + + + + + + | Absolute | 0.04Comment: Testing | 0.00 - 0.10 | EXTERNAL | | | Basophils | performed at [facility], [address] | K/uL | LAB | | | | [address], | | | | | | [place] [address] | | | | + + + + + + + + | Specimen | + + | Blood specimen | | (specimen) | + + + +---------+ + + | Performing | Address | City/State/Zipcode | Phone Number | | Organization | | | | + +---------+ + + | EXTERNAL LAB | | | | + +---------+ + + Phosphorus (02/07/2018 5:38 AM PST) + + + + + + | Component | Value | Ref Range | Performed | Pathologist | | | | | At | Signature | + + + + + + | PHOSPHORUS | 3.2Comment: Testing | 2.3 - 4.8 mg/dL | EXTERNAL | | | | performed at [facility];[address] | | LAB | | | | [address];[place], [place] | | | | | | [address] | | | | + + + + + + + + | Specimen | + + | Blood specimen | | (specimen) | + + + +---------+ + + | Performing | Address | City/State/Zipcode | Phone Number | | Organization | | | | + +---------+ + + | EXTERNAL LAB | | | | + +---------+ + + Magnesium (02/07/2018 5:38 AM PST) + + + + + + | Component | Value | Ref Range | Performed | Pathologist | | | | | At | Signature | + + + + + + | Magnesium | 2.0Comment: Testing | 1.7 - 2.4 mg/dL | EXTERNAL | | | | performed at [facility];[address] | | LAB | | | | [address];[place] | | | | | | [address] | | | | + + + + + + + + | Specimen | + + | Blood specimen | | (specimen) | + + + +---------+ + + | Performing | Address | City/State/Zipcode | Phone Number | | Organization | | | | + +---------+ + + | EXTERNAL LAB | | | | + +---------+ + + Basic Metabolic Panel (02/07/2018 5:38 AM PST) + + + + + + | Component | Value | Ref Range | Performed | Pathologist | | | | | At | Signature | + + + + + + | Na | 139 | 135 - 145 | EXTERNAL | | | | | mmol/L | LAB | | + + + + + + | K | 4.4 | 3.5 - 4.9 | EXTERNAL | | | | | mmol/L | LAB | | + + + + + + | Cl | 105 | 99 - 109 mmol/L | EXTERNAL | | | | | | LAB | | + + + + + + | CO2 | 25 | 23 - 32 mmol/L | EXTERNAL | | | | | | LAB | | + + + + + + | Anion Gap | 12 | 5 - 20 mmol/L | EXTERNAL | | | | | | LAB | | + + + + + + | Glucose, | 289 (H) | 65 - 99 mg/dL | EXTERNAL | | | Fasting | | | LAB | | + + + + + + | BUN | 25 | 8 - 25 mg/dL | EXTERNAL | | | | | | LAB | | + + + + + + | Creatinine | 1.0 | 0.70 - 1.30 | EXTERNAL | | | | | mg/dL | LAB | | + + + + + + | BUN/Creatin | 25 | | EXTERNAL | | | ine Ratio | | | LAB | | + + + + + + | Calcium | 8.4 (L) | 8.5 - 10.5 | EXTERNAL | | | | | mg/dL | LAB | | + + + [...] | | | | | performed at [facility];[address] | | | | | | [address];[place], [place] | | | | | | [address] | | | | + + + + + + + + | Specimen | + + | Blood specimen | | (specimen) | + + + +---------+ + + | Performing | Address | City/State/Zipcode | Phone Number | | Organization | | | | + +---------+ + + | EXTERNAL LAB | | | | + +---------+ + + Troponin I (02/06/2018 11:53 PM PST) + + + + + + | Component | Value | Ref Range | Performed | Pathologist | | | | | At | Signature | + + + + + + | Troponin I, | 0.028Comment: 0.00 to | 0.00 - 0.10 | EXTERNAL | | | Qual | 0.10 CONSISTENT WITH | ng/mL | LAB | | | | NORMAL POPULATION0.11 to | | | | | | 0.60 CONSISTENT WITH | | | | | | INCREASED RISK FOR | | | | | | ADVERSE OUTCOMES> 0.60 | | | | | | CONSISTENT | | | | | | WITH WHO CRITERIA FOR | | | | | | ACUTE [place] Testing | | | | | | performed at [facility];[address] | | | | | | [address];[place], [place] | | | | | | [address] | | | | + + + + + + + + | Specimen | + + | Blood specimen | | (specimen) | + + + +---------+ + + | Performing | Address | City/State/Zipcode | Phone Number | | Organization | | | | + +---------+ + + | EXTERNAL LAB | | | | + +---------+ + + POC Glucose (02/06/2018 9:39 PM PST) + + + + + + | Component | Value | Ref Range | Performed | Pathologist | | | | | At | Signature | + + + + + + | Glucose, | 288 (H)Comment: Testing | 65 - 99 mg/dL | EXTERNAL | | | Fingerstick | performed at [facility];[address] | | LAB | | | | [address];[place] | | | | | | [address] | | | | + + + + + + + + | Specimen | + + | | + + + +---------+ + + | Performing | Address | City/State/Zipcode | Phone Number | | Organization | | | | + +---------+ + + | EXTERNAL LAB | | | | + +---------+ + + Troponin I (02/06/2018 5:57 PM PST) + + + + + + | Component | Value | Ref Range | Performed | Pathologist | | | | | At | Signature | + + + + + + | Troponin I, | 0.034Comment: 0.00 to | 0.00 - 0.10 | EXTERNAL | | | Qual | 0.10 CONSISTENT WITH | ng/mL | LAB | | | | NORMAL POPULATION0.11 to | | | | | | 0.60 CONSISTENT WITH | | | | | | INCREASED RISK FOR | | | | | | ADVERSE OUTCOMES> 0.60 | | | | | | CONSISTENT | | | | | | WITH WHO CRITERIA FOR | | | | | | ACUTE [place] Testing | | | | | | performed at [facility];[address] | | | | | | [facility];[place], [place] | | | | | | [address] | | | | + + + + + + + + | Specimen | + + | Blood specimen | | (specimen) | + + + +---------+ + + | Performing | Address | City/State/Zipcode | Phone Number | | Organization | | | | + +---------+ + + | EXTERNAL LAB | | | | + +---------+ + + POC Glucose (02/06/2018 4:02 PM PST) + + + + + + | Component | Value | Ref Range | Performed | Pathologist | | | | | At | Signature | + + + + + + | Glucose, | 346 (H)Comment: Testing | 65 - 99 mg/dL | EXTERNAL | | | Fingerstick | performed at [facility];[address] | | LAB | | | | [address];[place] | | | | | | [address] | | | | + + + + + + + + | Specimen | + + | | + + + +---------+ + + | Performing | Address | City/State/Zipcode | Phone Number | | Organization | | | | + +---------+ + + | EXTERNAL LAB | | | | + +---------+ + + POC Glucose (02/06/2018 1:53 PM PST) + + + + + + | Component | Value | Ref Range | Performed | Pathologist | | | | | At | Signature | + + + + + + | Glucose, | 396 (H)Comment: Testing | 65 - 99 mg/dL | EXTERNAL | | | Fingerstick | performed at [facility];[address] | | LAB | | | | [address];[place], [place] | | | | | | [address] | | | | + + + + + + + + | Specimen | + + | | + + + +---------+ + + | Performing | Address | City/State/Zipcode | Phone Number | | Organization | | | | + +---------+ + + | EXTERNAL LAB | | | | + +---------+ + + US Abdomen Limited (02/06/2018 11:34 AM PST) + + | Specimen | + + | | + + + + + | Impressions | Performed At | + + + | 1. Prior cholecystectomy. 2. Fatty liver. 3. No acute | | | findings. | | | AM | | + + + + + + | Narrative | Performed At | + + + | NORAH GR 1955 US ABDOMEN LIMITED 02/06/2018 11:34 AM | | | HISTORY: Abdominal pain COMPARISON: CT abdomen 02/25/2016 | | | TECHNIQUE: Transabdominal ultrasound of the right upper quadrant, | | | grayscale and color flow evaluation. FINDINGS: The liver is | | | diffusely increased in echogenicity likely representing fatty change. | | | Normal directionality of flow is maintained within the portal and | | | hepatic veins. The common bile duct is normal in diameter | | | measuring 5 mm. The gallbladder is surgically absent Pancreas | | | appears slightly heterogeneously echogenic, which may be secondary to | | | fatty atrophy. Recommend laboratory correlation to exclude | | | pancreatitis. | | + + + + + | Procedure Note | + + | Joaquin Ramos Conversion - 09/18/2018 4:21 PM SHALONDA GR1954US ABDOMEN | | LIMITED02/06/2018 11:34 AM HISTORY: Abdominal pain COMPARISON: CT abdomen 02/25/2016 | | TECHNIQUE: Transabdominal ultrasound of the right upper quadrant, grayscale and color | | flow evaluation. FINDINGS: The liver is diffusely increased in echogenicity likely | | representing fatty change. Normal directionality of flow is maintained within the | | portal and hepatic veins. The common bile duct is normal in diameter measuring 5 mm. The | | gallbladder is surgically absent Pancreas appears slightly heterogeneously echogenic, | | which may be secondary to fatty atrophy. Recommend laboratory correlation to exclude | | pancreatitis. IMPRESSION: 1. Prior cholecystectomy.2. Fatty liver.3. No acute | | findings. | | | |FINDINGS: The liver is diffusely increased in echogenicity likely representing fatty change . Normal directionality of flow is maintained within the portal and hepatic veins. | | | |The common bile duct is normal in diameter measuring 5 mm. | | | |The gallbladder is surgically absent | | | |Pancreas appears slightly heterogeneously echogenic, which may be secondary to fatty atroph y. Recommend laboratory correlation to exclude pancreatitis. | | | |IMPRESSION: | |1. Prior cholecystectomy. | |2. Fatty liver. | |3. No acute findings. | | | | | + + Urinalysis, Reflex Microscopic and/or Culture (02/06/2018 9:51 AM PST) + + + + + + | Component | Value | Ref Range | Performed | Pathologist | | | | | At | Signature | + + + + + + | Color | YELLOW | | EXTERNAL | | | | | | LAB | | + + + + + + | Clarity, | CLEAR | | EXTERNAL | | | Urine | | | LAB | | + + + + + + | Specific | 1.027 | 1.002 - 1.030 | EXTERNAL | | | [place], | | | LAB | | | Urine | | | | | + + + + + + | Leukocyte | NEGATIVE | | EXTERNAL | | | Esterase, | | | LAB | | | Urine | | | | | + + + + + + | Nitrite, | NEGATIVE | | EXTERNAL | | | Urine | | | LAB | | + + + + + + | Urobilinoge | NORMAL | mg/dL | EXTERNAL | | | n, Urine | | | LAB | | + + + + + + | Protein, | NEGATIVE | mg/dL | EXTERNAL | | | Urine | | | LAB | | + + + + + + | pH, Urine | 5.0 | 5.0 - 8.0 | EXTERNAL | | | | | | LAB | | + + + + + + | Blood, | NEGATIVE | | EXTERNAL | | | Urine | | | LAB | | + + + + + + | Ketones | NEGATIVE | mg/dL | EXTERNAL | | | | | | LAB | | + + + + + + | Bilirubin, | NEGATIVE | | EXTERNAL | | | Urine | | | LAB | | + + + + + + | Glucose, | >500 (A)Comment: Testing | mg/dL | EXTERNAL | | | Urine | performed at [facility];[address] | | LAB | | | | [address];[place] | | | | | | [address] | | | | + + + + + + + + | Specimen | + + | | + + + +---------+ + + | Performing | Address | City/State/Zipcode | Phone Number | | Organization | | | | + +---------+ + + | EXTERNAL LAB | | | | + +---------+ + + HISTORICAL MICROBIOLOGY RESULT (02/06/2018 8:47 AM PST) + + | Specimen | + + | | + + + + + | Narrative | Performed At | + + + | INFLUENZA A NEGATIVE | EXTERNAL LAB | | INFLUENZA B NEGATIVE Testing | | | performed by Molecular Methodology Testing performed at [facility];[address];[place] [address] | | + + + + +---------+ + + | Performing | Address | City/State/Zipcode | Phone Number | | Organization | | | | + +---------+ + + | EXTERNAL LAB | | | | + +---------+ + + HISTORICAL MICROBIOLOGY RESULT (02/06/2018 8:42 AM PST) + + | Specimen | + + | | + + + + + | Narrative | Performed At | + + + | Flu Swab Collection SPECIMEN RECEIVED IN LAB | EXTERNAL LAB | | Testing performed at [facility];[address] [facility];[place] [address] | | + + + + +---------+ + + | Performing | Address | City/State/Zipcode | Phone Number | | Organization | | | | + +---------+ + + | EXTERNAL LAB | | | | + +---------+ + + XR Chest 2 Marcellos (02/06/2018 8:30 AM PST) + + | Specimen | + + | | + + + + + | Impressions | Performed At | + + + | 1. No acute cardiopulmonary findings. | | + + + + + + | Narrative | Performed At | + + + | NORAH GR 1955 62 years Male XR CHEST 2 VIEW FRONTAL | | | AND LATERAL 02/06/2018 8:30 AM INDICATION: Chest pain | | | COMPARISON: 01/16/2018, 10/23/2017 TECHNIQUE: Two view chest, PA | | | and lateral views FINDINGS: The heart is normal in size. No focal | | | airspace opacification, pleural effusion, or pneumothorax. | | + + + + + | Procedure Note | + + | Joaquin Ramos Conversion - 09/18/2018 4:21 PM PDT NORAH Andrea [id number] years MaleXR | | CHEST 2 VIEW FRONTAL AND LATERAL02/06/2018 8:30 AM INDICATION: Chest pain COMPARISON: | | 01/16/2018, 10/23/2017 TECHNIQUE: Two view chest, PA and lateral views FINDINGS: The | | heart is normal in size. No focal airspace opacification, pleural effusion, or | | pneumothorax. IMPRESSION: 1. No acute cardiopulmonary findings. | |INDICATION: Chest pain | | | |COMPARISON: 01/16/2018, 10/23/2017 | | | |TECHNIQUE: Two view chest, PA and lateral views | | | |FINDINGS: The heart is normal in size. No focal airspace opacification, pleural effusion, o r pneumothorax. | | | |IMPRESSION: | |1. No acute cardiopulmonary findings. | | | | | + + HISTORICAL LAB PANEL RESULT (02/06/2018 8:03 AM PST) + + + + + -+ | Component | Value | Ref Range | Performed | Pathologist | | | | | At | Signature | + + + + + -+ | WBC | 7.60 | 3.80 - 11.00 | EXTERNAL | | | | | K/uL | LAB | | + + + + + -+ | Non- | 5.50 | 4.20 - 5.70 | EXTERNAL | | | Red Blood | | M/uL | LAB | | | Cells | | | | | | Counted | | | | | + + + + + -+ | Hemoglobin | 15.3 | 13.2 - 17.0 | EXTERNAL | | | | | g/dL | LAB | | + + + + + -+ | Hematocrit, | 43.9 | 39.0 - 50.0 % | EXTERNAL | | | POC | | | LAB | | + + + + + -+ | MCV | 79.9 (L) | 80.0 - 100.0 fl | EXTERNAL | | | | | | LAB | | + + + + + -+ | MCH | 27.9 | 27.0 - 34.0 pg | EXTERNAL | | | | | | LAB | | + + + + + -+ | MCHC | 34.9 | 32.0 - 35.5 | EXTERNAL | | | | | g/dL | LAB | | + + + + + -+ | RDW-CV | 39.4 | 37 - 53 fl | EXTERNAL | | | | | | LAB | | + + + + + -+ | Platelet | 257 | 150 - 400 K/uL | EXTERNAL | | | Count | | | LAB | | | Plasma | | | | | + + + + + -+ | MPV | 7.8 | fl | EXTERNAL | | | | | | LAB | | + + + + + -+ | Differentia | AUTOMATED | | EXTERNAL | | | l Type | | | LAB | | + + + + + -+ | % Segmented | 45.27 | % | EXTERNAL | | | | | | LAB | | | Neutrophils | | | | | + + + + + -+ | % | 39.10 | % | EXTERNAL | | | Lymphocytes | | | LAB | | + + + + + -+ | % Monocytes | 11.34 | % | EXTERNAL | | | | | | LAB | | + + + + + -+ | % | 3.32 | % | EXTERNAL | | | Eosinophils | | | LAB | | + + + + + -+ | % Basophils | 0.97 | % | EXTERNAL | | | | | | LAB | | + + + + + -+ | Absolute | 3.44 | 1.90 - 7.40 | EXTERNAL | | | Segmented | | K/uL | LAB | | | Neutrophils | | | | | + + + + + -+ | Absolute | 2.97 | 1.00 - 3.90 | EXTERNAL | | | Lymphocytes | | K/uL | LAB | | + + + + + -+ | Absolute | 0.86 (H) | 0.00 - 0.80 | EXTERNAL | | | Monocytes | | K/uL | LAB | | + + + + + -+ | Absolute | 0.25 | 0.00 - 0.50 | EXTERNAL | | | Eosinophils | | K/uL | LAB | | + + + + + -+ | Absolute | 0.07 | 0.00 - 0.10 | EXTERNAL | | | Basophils | | K/uL | LAB | | + + + + + -+ | Na | 134 (L) | 135 - 145 | EXTERNAL | | | | | mmol/L | LAB | | + + + + + -+ | K | 3.6 | 3.5 - 4.9 | EXTERNAL | | | | | mmol/L | LAB | | + + + + + -+ | Cl | 100 | 99 - 109 mmol/L | EXTERNAL | | | | | | LAB | | + + + + + -+ | CO2 | 25 | 23 - 32 mmol/L | EXTERNAL | | | | | | LAB | | + + + + + -+ | Anion Gap | 14 | 5 - 20 mmol/L | EXTERNAL | | | | | | LAB | | + + + + + -+ | Glucose, | 366 (H) | 65 - 99 mg/dL | EXTERNAL | | | Fasting | | | LAB | | + + + + + -+ | BUN | 22 | 8 - 25 mg/dL | EXTERNAL | | | | | | LAB | | + + + + + -+ | Creatinine | 1.1 | 0.70 - 1.30 | EXTERNAL | | | | | mg/dL | LAB | | + + + + + -+ | BUN/Creatin | 20 | | EXTERNAL | | | ine Ratio | | | LAB | | + + + + + -+ | Calcium | 9.0 | 8.5 - 10.5 | EXTERNAL | | | | | mg/dL | LAB | | + + + + + -+ | Protein, | 7.5 | 6.3 - 8.2 g/dL | EXTERNAL | | | Total | | | LAB | | + + + + + -+ | Albumin | 3.1 (L) | 3.3 - 4.8 g/dL | EXTERNAL | | | | | | LAB | | + + + + + -+ | Globulin | 4.4 | 1.3 - 4.9 g/dL | EXTERNAL | | | | | | LAB | | + + + + + -+ | A/G Ratio | 0.7 (L) | 1.0 - 2.4 | EXTERNAL | | | | | | LAB | | + + + + + -+ | Bilirubin | 0.6 | 0.1 - 1.5 mg/dL | EXTERNAL | | | Total | | | LAB | | + + + + + -+ | ALP, | 116 (H) | 35 - 115 U/L | EXTERNAL | | | External | | | LAB | | + + + + + -+ | AST | 20 | 10 - 45 U/L | EXTERNAL | | | | | | LAB | | + + + + + -+ | ALT | 23 | 10 - 65 U/L | EXTERNAL | | | | | [...] traceable | | | | | | equation. | | | | + + + + + -+ | CK, Total | 99 | 55 - 400 U/L | EXTERNAL | | | | | [...] SYSTEMIC | | | | | | EMBOLISM | | | | + + + + + -+ | aPTT, | 25 | 23 - 32 seconds | EXTERNAL | | | Patient | | | LAB | | + + + + + -+ | CK-MB | 4.3 (H) | 0.5 - 3.6 ng/mL | EXTERNAL | | | | | | LAB | | + + + + + -+ | CK-MB Index | 4.3Comment: CK INDEX | | EXTERNAL | | [...] | + +---------+ + + Troponin I (02/06/2018 8:03 AM PST) + + + + + + | Component | Value | Ref Range | Performed | Pathologist | | | | | At | Signature | + + + + + + | Troponin I, | 0.026Comment: 0.00 to | 0.00 - 0.10 | EXTERNAL | | | Qual | 0.10 CONSISTENT WITH | ng/mL | LAB | | | | NORMAL POPULATION0.11 to | | | | | | 0.60 CONSISTENT WITH | | | | | | INCREASED RISK FOR | | | | | | ADVERSE OUTCOMES> 0.60 | | | | | | CONSISTENT | | | | | | WITH WHO CRITERIA FOR | | | | | | ACUTE [place] Testing | | | | | | performed at [facility] | | | | | | [facility];[place], [place] | | | | | | [address] | | | | + + + [...] +---------+ + + B Type Natriuretic Peptide (02/06/2018 8:03 AM PST) + + + + + + | Component | Value | Ref Range | Performed | Pathologist | | | | | At | Signature | + + + + + + | BNP | 18.1Comment: Testing | 0 - 100 pg/mL | EXTERNAL | | | | performed at [facility];[address] | | LAB | | | | [address] [facility];[place], [place] | | | | | | [address] | | | | + + + [...] + +---------+ + + ECG 12 lead (02/06/2018 7:29 AM PST) + + + + + + | Component | Value | Ref Range | Performed | Pathologist | | | | | At | Signature | + + + + + + | DIAGNOSIS: | Atrial fibrillation with | | EXTERNAL | | | | rapid ventricular | | LAB | | | | responseMinimal voltage | | | | | | criteria for LVH, may be | | | | | | normal variantMarked ST | | | | | | abnormality, possible | | | | | | inferior subendocardial | | | | | | injuryAbnormal ECGWhen | | | | | | compared with ECG of | | | | | | 16-JAN-2018 | | | | | | 17:57,Significant | | | | | | changes have | | | | | | occurredThis ECG | | | | | | [...] | | | | | commissioning editor Roberto Stevens | | | | | | Gonzalo (123) on 02/06/2018 | | | | | | 9:00:20 PM | | | | + + + + + + + + | Specimen | + + | | + + + + + | Narrative | Performed At | + + + | Historically converted procedure from [facility] | EXTERNAL LAB | + + + + +---------+ + + | Performing | Address | City/State/Zipcode | Phone Number | | Organization | | | | + +---------+ + + | EXTERNAL LAB | | | | + +---------+ + + documented in this encounter Visit Diagnoses + + | Diagnosis | + + | Atrial fibrillation with RVR (HCC) Atrial fibrillation | + + | Chest pain, unspecified type | + + | Chronic anticoagulation Encounter for long-term (current) use of 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 | + + documented in this encounter
--- OUTSIDE RECORDS SUMMARY | ~2019-10-12 | XMS | Encounter Summary ---
Demographics + + + | Address | [address] | | | [place] [address] | + + + | Home Phone | | + + + | Preferred Language | Unknown | + + + | Marital Status | | + + + | Caodaism Affiliation | 1027 | + + + | Race | White | + + + | Ethnic Group | Not or | + + + Author + + + | Author | [facility] | | | and [place] | + + + | Organization | [facility] | | | and [place] | + + + | Address | Unknown | + + + | Phone | Unavailable | + + + Support + + + + + | Name | Relationship | Address | Phone | + + + + + | Sammi Kohler | ECON | [place] [address] | | + + + + + Care Team Providers + +------+ + | Care Environmental Technician Name | Role | Phone | + +------+ + | Mik Diego DO | PCP | | + +------+ + Encounter Details +--------+ + + + + | Date | Type | Department | Care Team | Description | +--------+ + + + + | 04/01/ | Orders Only | [facility] | Sy Fierro, | | | 2014 | | PLASTIC SURGERY AND | [address] | | | | | DERMATOLOGY [address] [place], | | | | | [place] | [place] [address] | | | | | [place] | [phone] | | | | | [address] | | | | | | [phone] | | | +--------+ + + + [...] Progress Notes Conversion Transaction, Provider Unknown - 03/31/2014 9:16 AM PSTFormatting of this note m ight be different from the original. Addendum Note by Fran Khoury MA at 03/31/14915 Author: Fran Khoury MA Service: (none) Author Type: Inbound Customer Service Agent Filed: 03/31/1416 Encounter Date: 03/31/2014 Status: Signed Cutting Table Operator: Fran Khoury MA (Inbound Customer Service Agent) Addended by: FRAN KHOURY on: 03/31/2014 09:16 AM Modules accepted: Orders Sy Oneill MD - 03/31/2014 8:45 AM PSTFormatting of this note might be different from th e original. Progress Notes by Sy Fierro MD at 03/31/14 0845 Author: Sy Fierro MD Service: (none) Author Type: Physician Filed: 03/31/14 0907 Encounter Date: 03/31/2014 Status: Signed Cutting Table Operator: Sy Fierro MD (Physician) HPI This patient has a history of multiple carcinomas in the past. He has a new ulcerated lesi on on the left arm that he says is been there for about one year. No biopsy has been perfor med. ROS Eyes Dry eye problems n ENT sleep apnea y Cardiovascular heart disease n Pacemaker? n Respiratory current smoker n Musculoskeletal arthritis y Skin and Breast mammogram current na Hx of skin ca n Psychiatric Hx of Depression y Endocrine Hx DM Type 1 Hematologic/Lymphatic Hx of clotting problems n DVT, PE n anticoagulant use aspirin Allergic/Immunologic local anesthetic allergy n Antibiotic allergy n PHYSICAL EXAM Constitutional: Well-developed, well-nourished Hent: Atraumatic, normocephalic Eyes: Extraocular movements are intact Neurological: Alert, oriented x3. The patient has some cognitive developmental delay. Skin: Warm, dry Chivo ulcerated lesion on the left radial forearm. Psychiatric: Mood/affect normal, behavior normal, thought content normal Assessment and plan: Ulcerated lesion left radial forearm. I suggested biopsy. We will do this today. 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 The area was then prepped and draped in a steril e fashion. An elliptical portion of the lesion was then excised with a scalpel and hemostasi s achieved with electro-cautery. The wound was sutured with 5-0 plain gut. A bandage was katy lied consisting of antibiotic ointment and/or a Band-Aid. The patient was discharged in goo d condition. documented in thi s encounter Plan of Treatment +--------+ + + + + | Date | Type | Specialty | Care Team | Description | +--------+ + + + + | 10/16/ | Anti-coag | Anticoagulation | Brittany Zaragoza | | | 2020 | visit | | [address] | | | | | | [place], | | | | | | [place] [address] | | | | | | [phone] | | | | | | | | +--------+ + + + + documented as of this encounter Procedures + +--------+ + + + | Procedure Name | Priori | Date/Time | Associated Diagnosis | Comments | | | ty | | | | + +--------+ + + + | TISSUE REQUEST FOR | Routin | 04/01/2014 | | Results for this | | PATHOLOGY (NON-ORD) | e | 12:00 AM | | procedure are in the | | | | PST | | results section. | + +--------+ + + + documented in this encounter Results Tissue Request For Pathology (04/01/2014 12:00 AM PST) + + | Specimen | + + | | + + + + + | Narrative | Performed At | + + + | SPECIMEN(S): A SKIN Lt. FOREARM SPECIMEN SOURCE: A. SKIN Lt. | EXTERNAL LAB | | FOREARM CLINICAL HISTORY: 03/31/2014. Neoplasm of uncertain | | | behavior of skin [238.2] | | | | | | Primary. FINAL PATHOLOGIC DIAGNOSIS: Skin, left forearm: - | | | Basal cell carcinoma with extensive ulceration - The | | | lesion extends to the base of the specimen MICROSCOPIC EXAMINATION: | | | Histologic sections of all submitted blocks are examined by light | | | microscopy. These findings, together with the gross examination, | | | support the pathologic diagnosis. GROSS DESCRIPTION: One specimen is | | | received in one container, labeled with the patient's name: A. | | | Received in formalin designated " left forearm", consists of a 1.2 x | | | 1.0 x 0.2 cm unoriented skin excision. The skin surface is yellow-fraga | | | and granular. The specimen is inked black, sectioned and entirely | | | submitted in cassette A1. PERFORMING LABORATORY: Professional | | | interpretation and technical preparation was performed by [facility] | | | Diagnostics, [address], | | | [place] [address] (Trial Examiner: Jose Pierre M.D.; [facility]#: | | | [id number]). Diagnostician: Jose Pierre MD Pathologist | | | Electronically Signed 04/03/2014 | | + + + + +---------+ + + | Performing | Address | City/State/Zipcode | Phone Number | | Organization | | | | + +---------+ + + | EXTERNAL LAB | | | | + +---------+ + + documented in this encounter Visit Diagnoses Not on filedocumented in this encounter
--- OUTSIDE RECORDS SUMMARY | ~2019-10-12 | XMS | Encounter Summary ---
Demographics + + + | Address | [address] | | | [place] [address] | + + + | Home Phone | | + + + | Preferred Language | Unknown | + + + | Marital Status | | + + + | Rastafari Affiliation | 1027 | + + + | Race | White | + + + | Ethnic Group | Not or | + + + Author + + + | Author | [facility] | | | and [place] | + + + | Organization | [facility] | | | and [place] | + + + | Address | Unknown | + + + | Phone | Unavailable | + + + Support + + + + + | Name | Relationship | Address | Phone | + + + + + | Sammi Kohler | ECON | [place] [address] | | + + + + + Care Team Providers + +------+ + | Care Senior Executive Assistant Name | Role | Phone | + +------+ + PCP | Unavailable | + +------+ + Encounter Details +--------+ + + + + | Date | Type | Department | Care Team | Description | +--------+ + + + + | 09/16/ | Emergency | [facility] | Ashu Bobo | Atypical chest pain; | | 2019 | | [facility] | MD [facility] [address] | Uncontrolled type 2 | | | | EMERGENCY CENTER | [address] [place], [place] | diabetes mellitus | | | | [address] [facility] | [address] | with hyperglycemia | | | | [place], [place] | [phone] | (HCC) | | | | [address] | | | | | | [phone] | | | +--------+ + + + [...] + + + | Blood Pressure | 217/97 | 09/16/2018 5:59 PM | | | | | PDT | | + + + + + | Pulse | 61 | 09/16/2018 5:59 PM | | | | | PDT | | + + + + + | Temperature | 37.4 C (99.3 F) | 09/16/2018 5:59 PM | | | | | PDT | | + + + + + | Respiratory Rate | 20 | 09/16/2018 5:59 PM | | | | | PDT [...] + + + documented in this encounter Medications at Time [...] tablet by | 60 | 3 | 09/16/19 | | | (GLUCOPHAGE) 500 mg | [...] Progress Notes Conversion Transaction, Provider Unknown - 09/16/2018 6:23 PM PDTFormatting of this note m ight be different from the original. Case Management by QUINN Tyson at 09/16/181822 Author: QUINN Tyson Service: (none) Author Type: Television Repairer Filed: 09/16/181918 Date of Service: 09/16/181822 Status: Signed Graduate Research Assistant: QUINN Tyson (Television Repairer) Met with patient, per provider referral. Arranged taxi ride home as dial a ride is not in service on Sundays and patient has been unable to reach his support network of friends/neigh bors. Patient with apparent developmental delay. However, patient is able to communicate that his caregivers will be coming tomorrow morning for 2 hours, has 20 hours per month. Has ass ist with meal preparation, uses [employer], and has support that he has to pay for through the [employer] as he is currently on a medicaid spenddown (has medica id but is not currently qualifying for all services). Patient states he has meals on wheel s and has local support through his former mother in law, no POA. Notes also indicate [facility] to follow patient, though patient is unsure of this as they may not h ave contacted him at home yet. Patient is IADLS, ambulatory, and states that he is hoping t o get re-established with Radha PCP. Prior CM notes indicate [employer] has been enlisted to hel p with getting new PCP abbey as patient has not been compliant with meds. [facility] assistance fo r med management may be helpful as well. Transport arranged for [employer] in [facility], patient and RN in agreement at this time. docume nted in this encounter ED Notes Ashu Bobo MD - 09/16/2018 4:19 PM PDT ED Provider Notes by Ashu Bobo MD at 09/16/18 1619 Author: Ashu Bobo MD Service: -Emergency Author Type: Physician Filed: 09/16/18 1800 Date of Service: 09/16/181618 Status: Addendum Graduate Research Assistant: Ashu Bobo MD (Physician) Related Notes: Original Note by Ashu Bobo MD (Physician) filed at 09/16/18 0672 [facility] Department of Emergency Medicine History of Present Illness Patient Identification Kevyn Guzman is a 62 y.o. male. Patient information was obtained from patient and past medical records. History/Exam limitations: none. Patient presented to the Emergency Department by: Car Chief Complaint Chief Complaint Patient presents with Chest Pain Shortness of Breath The patient complains of chest pain and trouble breathing. Onset of symptoms was 20 minutes ago, with a(n) constant course since that time. The discomfort is described as "really sha rp", located in the central chest with no radiation. The onset of symptoms occured while t he patient was at home. The patient also complains of the following symptoms: "I think my a fib is acting up because I feel like I'm having trouble breathing." Pt denies: fever, chill s, cough, leg pain or leg swelling. Pain level currently: Mild to moderate. At worst: moderate. Care prior to arrival: nothing, with no spontaneous relief. Patient's cardiac risk factors: DM, HLP, HTN, age, gender, obese. Prior stress testing or other cardiac functional testing: Had NM study here less than a ye ar ago that was negative. Pt takes Eliquis because of prior PE. States he took all of his medications as prescribed since his discharge from this hospital yesterday. PCP: Mik Diego CARDIOLOGY: NONE per pt Past Medical History Diagnosis Date Acute pulmonary [...] of GE junction Hypercholesterolemia 07/08/2013 Hyperlipidemia Hypertension retirement (current) use of 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 Obesity, Class I, BMI 30-34.9 07/08/2013 WARD (obstructive sleep apnea) 08/11/2012 does not use CPAP because of the noise Other chronic pain Renal failure Stroke (HCC) TIA (transient ischemic attack) Unspecified visual disturbance reading glasses Past Surgical History Procedure Laterality Date ABDOMINAL SURGERY CHOLECYSTECTOMY CHOLECYSTECTOMY, LAPAROSCOPIC N/A 09/12/2012 Procedure: LAPAROSCOPIC - CHOLECYSTECTOMY; Surgeon: Jevon Vargas DO; Location: [facility] MAIN OR; Service: General; Laterality: N/A; COLONOSCOPY COLONOSCOPY N/A 03/04/2013 Procedure: COLONOSCOPY; Surgeon: Howie Gibson MD; Location: [facility] ENDOSCOPY; Service: Gastroen terology; Laterality: N/A; ESOPHAGOGASTRODUODENOSCOPY N/A 03/03/2013 Procedure: ESOPHAGOGASTRODUODENOSCOPY; Surgeon: Howie Gibson MD; Location: [facility] ENDOSCOPY; Se rvice: Gastroenterology; Laterality: N/A; HERNIA REPAIR N/A 07/03/2013 Procedure: LAPAROSCOPIC - HERNIA - INCISIONAL; Surgeon: Jevon Vargas DO; Location: [facility] MAIN OR; Service: General; Laterality: N/A; KNEE SURGERY rt knee, patella LEG SURGERY LLE SKIN BIOPSY SKIN CANCER EXCISION Left 10/10/2012 Procedure: EXCISION - SKIN CANCER; Surgeon: Sy Fierro MD; Location: [facility] MAIN OR; Service: Plastics; Laterality: Left; upper arm and upper back w/frozen section SKIN LESION EXCISION Left 05/05/2014 Procedure: EXCISION - LESION - FROZEN SECTION; Surgeon: Sy Fierro MD; Location: [facility] MAIN OR; Service: Plastics; Laterality: Left; forearm UNLISTED PROCEDURE ARTHROSCOPY UPPER GASTROINTESTINAL ENDOSCOPY Prior to Admission medications Medication Sig Start Date End Date Taking? Authorizing Provider apixaban (ELIQUIS) 5 MG tablet Take 1 tablet by mouth 2 (two) times daily. 09/14/18 Noble cabral MD ARIPiprazole (ABILIFY) 5 MG tablet Take 1 tablet by mouth daily for 30 days. 09/15/18 10/15/18 Noble Conteh MD aspirin 81 MG tablet Take 1 tablet by mouth daily. 09/14/18 Noble Conteh MD budesonide-formoterol (SYMBICORT) 160-4.5 MCG/ACT inhaler Inhale 2 puffs into the lungs 2 ( two) times daily. 09/14/18 09/14/19 Noble Conteh MD carvedilol (COREG) 6.25 MG tablet Take 1 tablet by mouth 2 (two) times daily with meals. 09/14/1809/14/19 Noble Conthe MD docusate sodium (COLACE) 250 MG capsule Take 250 mg by mouth daily. Historical Provider fenofibrate 160 MG tablet Take 1 tablet by mouth daily. 09/14/18 Noble Conteh MD insulin detemir (LEVEMIR) 100 UNIT/ML injection Inject 40 Units into the skin every morning . 09/15/18 09/15/19 Noble Conteh MD insulin lispro, human, (HUMALOG) 100 UNIT/ML injection Inject 12 Units into the skin 3 (thr ee) times daily before meals. 09/15/18 09/15/19 Noble Conteh MD lisinopril (ZESTRIL) 40 MG tablet Take 40 mg by mouth daily. Historical Provider metFORMIN (GLUCOPHAGE) 500 MG tablet Take 1 tablet by mouth 2 (two) times daily with meals. 09/15/18 09/15/19 Noble Conteh MD NIFEdipine (PROCARDIA XL) 60 MG 24 hr tablet Take 1 tablet by mouth daily. 09/14/18 09/14/19 Sukhjinder Conteh MD pravastatin (PRAVACHOL) 80 MG tablet Take 80 mg by mouth nightly. Historical Provider tamsulosin (FLOMAX) 0.4 MG capsule Take 1 capsule by mouth 2 (two) times daily. Administer 30 minutes after the same meal each day. Capsules should be swallowed whole; 09/14/18 Noble Conteh MD Allergies Allergen Reactions Nitroglycerin Hives Vitamin B12 Rash Social History Social History Marital status: Spouse name: N/A Number of children: 1 Years of education: s. [employer] Occupational History disabled Social History Main Topics Smoking status: Never Smoker Smokeless tobacco: Never Used Alcohol use 0.0 oz/week 1 - 2 Cans of beer per week Comment: occassional Drug use: No Sexual activity: Not Currently Other Topics Concern Not on file Social History Narrative Lives alone x 1 wk, moved from [facility], , 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 2 falls in the last 6 months. Family History Problem Relation Age of Onset Heart disease Father Heart disease Sister Diabetes type II Sister Heart Problems Brother Review of Systems Constitutional: Negative for: fever, chills Eyes: Negative for: vision changes Throat: Negative for: mouth sores Cardiovascular/Respiratory: As above, else negative for: cough Gastrointestinal: Negative for: abdominal pain, vomiting, diarrhea, black or bloody stools Genitourinary: Negative for: dysuria, hematuria, urinary problems Musculoskeletal: Negative for: extremity swelling Skin: Negative for: rash Neuro and psych: Negative for: fainting Endocrine/Heme/Lymph: Negative for: swollen lymph nodes All other review of systems negative except as mentioned. Physical Exam BP (!) 211/92 (BP Location: Left upper arm) | Pulse 70 | Temp 98.3 F (36.8 C) (Oral) | Resp 19 | SpO2 96% Pulse Oximetry interpretation: Normal VS: Elevated BP, else normal. AFebrile. General: Alert, in no apparent distress, unusual affect, seems to have baseline cognitive h andicap. Eyes: Normal inspection, pupils equal and round, non-icteric ENT: Ears normal Nose normal Neck: Normal inspection Supple No lymphadenopathy No meningismus Cardiovascular: Normal rate, rhythm. No murmur. Respiratory: Normal lung sounds. No rales, rhonchi, or wheezing. Abdomen: Soft, non-tender, non-distended No guarding or rebound Back: Normal inspection Extremities: No edema or tenderness Skin: Color normal Warm and dry No rash Neuro: No motor deficit No sensory deficit Medical Decision Making and Emergency Department Course Well's Criteria Points Not performed, pt already on Eliquis for PE. ED Department Course Normal exam, benign VS. Pt just discharged from this facility yesterday. ECG is benign. Will screen. CXR normal. CBC normal. TnI normal. Cardiac panel shows modest hypokalemia at 3.3 and hyperglycemia at 273. Else normal. CXR normal. No clear cause for pt's symptoms but I do not have any additional diagnostic testing to off er in the ED. Will discharge and pt will follow up with PCP. Pt reassessed multiple times during course of ED stay and demonstrated progressive and sust ained improvement. Neither decompensation nor new symptoms observed or reported. BP 197/90 (BP Location: Left upper arm) | Pulse 68 | Temp 99.8 F (37.7 C) (Oral) | R arlette 20 | SpO2 94% Records Reviewed Old medical records. Dozens of prior ED visits noted. I have also noted and reviewed the patient care plan in the EMR. Laboratory Evaluation [facility] CARD PANEL W/O TRP (ED ONLY) - Abnormal; Notable for the following: Result Value MONOCYTES ABS 0.81 (*) POTASSIUM 3.3 (*) GLUCOSE 273 (*) All other components within normal limits TROPONIN I D-DIMER, QUANTITATIVE POC CARDIAC TROPONIN Radiology and EKG Evaluation 12-lead ECG: Time of exam 1611. Interpreted independently by me. Rate: 79. Rhythm: NSR. Ectopy: None. [place]: nml. Intervals: LVH. Infarct/Ischemia: none. Technique: Some ar tifact. Interpretation: NSR with LVH Prior ECG for comparison: No significant change from prior study dated 14 Sep 2018. Imaging Results XR Chest PA and Lateral (Final result) Result time 09/16/18 16:29:35 Final result by Porsche Arrington MD (09/16/18 16:29:35) Impression: Negative chest. Signed by: Irina Arrington Irene Sign Date/Time: 09/16/2018 4:29 PM Narrative: CHEST TWO VIEWS CLINICAL INFORMATION: Chest pain COMPARISON: XR CHEST 2 VIEW FRONTAL AND LATERAL (09/13/2018); FINDINGS: Heart, lungs and vessels normal. No pneumothorax, pleural effusion or adenopathy. No significant bone abnormality. ED Diagnoses Final diagnoses Atypical chest pain Uncontrolled type 2 diabetes mellitus with hyperglycemia (HCC) Disposition: ED Disposition ED Disposition Condition Comment Discharge Good Follow-up Information Follow up With Specialties Details Why Contact Info Mik Diego DO Family Medicine Schedule an appointment as soon as possible fo r a visit [address] [address] Discharge Medications: New Prescriptions No new medications Procedures Additional Documentation Procedures Ashu Bobo MD 09/16/18 5941 Pt expressed he is having problems with outpt follow up and some transportation problems. I have asked CRUISE DIRECTORDoug Abad to evaluate the pt to see if there is any way we can help. Ashu Bobo MD 09/16/18 1800 onversion Transa ction, Provider Unknown - 09/16/2018 4:15 PM PDT ED Notes by Evette Mcgarry at 09/16/18 1615 Author: Evette Mcgarry Service: (none) Author Type: Boat Puller Filed: 09/16/181614 Date of Service: 09/16/181614 Status: Signed Graduate Research Assistant: Evette Mcgarry (Boat Puller) EKG completed shown to Dr Jeramie Mcgarry 09/16/181614 onver ivana Transaction, Provider Unknown - 09/16/2018 4:09 PM PDT ED Notes by aSmantha Olivo RN at 09/16/181608 Author: Samantha Olivo RN Service: (none) Author Type: Registered Nurse Filed: 09/16/181608 Date of Service: 09/16/181608 Status: Signed Graduate Research Assistant: Samantha Olivo RN (Registered Nurse) Bed: 14 Expected date: Expected time: Means of arrival: Comments: triage chest pain Samantha Olivo RN 09/16/181608 docume nted in this encounter Plan of Treatment +--------+ + + + + | Date | Type | Specialty | Care Team | Description | +--------+ + + + + | 10/16/ | Anti-coag | Anticoagulation | Brittany Zaragoza | | | 2020 | visit | | [address] | | | | | | [place], | | | | | | [place] [address] | | | | | | [phone] | | | | | | | | +--------+ + + + + documented as of this encounter Procedures + +--------+ + + + | Procedure Name | Priori | Date/Time | Associated Diagnosis | Comments | | | ty | | | | + +--------+ + + + | XR CHEST 2 VIEWS | Routin | 09/16/2018 | | Results for this | | | e | 4:28 PM | | procedure are in the | | | | PDT | | results section. | + +--------+ + + + | HISTORICAL LAB PANEL | Routin | 09/16/2018 | | Results for this | | RESULT | e | 4:18 PM | | procedure are in the | | | | PDT | | results section. | + +--------+ + + + | TROPONIN I | Routin | 09/16/2018 | | Results for this | | | e | 4:18 PM | | procedure are in the | | | | PDT | | results section. | + +--------+ + + + | D-DIMER | Routin | 09/16/2018 | | Results for this | | | e | 4:18 PM | | procedure are in the | | | | PDT | | results section. | + +--------+ + + + | ECG 12 LEAD | Routin | 09/16/2018 | | Results for this | | | e | 4:11 PM | | procedure are in the | | | | PDT | | results section. | + +--------+ + + + documented in this encounter Results XR Chest 2 Vws (09/16/2018 4:28 PM PDT) + + | Specimen | + + | | + + + + + | Impressions | Performed At | + + + | Negative chest. Signed by: Irina Arrington, Porsche Pina Date/Time: | | | 09/16/2018 4:29 PM | | + + + + + + | Narrative | Performed At | + + + | CHEST TWO VIEWS CLINICAL INFORMATION: Chest pain COMPARISON: XR | | | CHEST 2 VIEW FRONTAL AND LATERAL (09/13/2018); FINDINGS: Heart, lungs | | | and vessels normal. No pneumothorax, pleural effusion or adenopathy. | | | No significant bone abnormality. | | + + + + + | Procedure Note | + + | Richard, Joaquin Conversion - 10/12/2018 8:46 AM PDT CHEST TWO VIEWS | | CLINICAL INFORMATION: | | Chest pain | | COMPARISON: | | XR CHEST 2 VIEW FRONTAL AND LATERAL (09/13/2018); | | FINDINGS: | | Heart, lungs and vessels normal. No pneumothorax, pleural effusion or | | adenopathy. No significant bone abnormality. | | IMPRESSION: | | Negative chest. | | Signed by: Irina Arrington Irene | | Sign Date/Time: 09/16/2018 4:29 PM | + + HISTORICAL LAB PANEL RESULT (09/16/2018 4:18 PM PDT) + + + + + -+ | Component | Value | Ref Range | Performed | Pathologist | | | | | At | Signature | + + + + + -+ | WBC | 9.75 | 3.80 - 11.00 | EXTERNAL | | | | | K/uL | LAB | | + + + + + -+ | Non- | 5.31 | 4.20 - 5.70 | EXTERNAL | | | Red Blood | | M/uL | LAB | | | Cells | | | | | | Counted | | | | | + + + + + -+ | Hemoglobin | 14.9 | 13.2 - 17.0 | EXTERNAL | | | | | g/dL | LAB | | + + + + + -+ | Hematocrit, | 44.8 | 39.0 - 50.0 % | EXTERNAL | | | POC | | | LAB | | + + + + + -+ | MCV | 84.4 | 80.0 - 100.0 fl | EXTERNAL | | | | | | LAB | | + + + + + -+ | MCH | 28.0 | 27.0 - 34.0 pg | EXTERNAL | | | | | | LAB | | + + + + + -+ | MCHC | 33.2 | 32.0 - 35.5 | EXTERNAL | | | | | g/dL | LAB | | + + + + + -+ | RDW-CV | 42.9 | 37 - 53 fl | EXTERNAL | | | | | | LAB | | + + + + + -+ | Platelet | 211 | 150 - 400 K/uL | EXTERNAL | | | Count | | | LAB | | | Plasma | | | | | + + + + + -+ | MPV | 8.0 | fl | EXTERNAL | | | | | | LAB | | + + + + + -+ | Differentia | AUTOMATED | | EXTERNAL | | | l Type | | | LAB | | + + + + + -+ | % Segmented | 52.60 | % | EXTERNAL | | | | | | LAB | | | Neutrophils | | | | | + + + + + -+ | % | 34.87 | % | EXTERNAL | | | Lymphocytes | | | LAB | | + + + + + -+ | % Monocytes | 8.34 | % | EXTERNAL | | | | | | LAB | | + + + + + -+ | % | 3.45 | % | EXTERNAL | | | Eosinophils | | | LAB | | + + + + + -+ | % Basophils | 0.74 | % | EXTERNAL | | | | | | LAB | | + + + + + -+ | Absolute | 5.13 | 1.90 - 7.40 | EXTERNAL | | | Segmented | | K/uL | LAB | | | Neutrophils | | | | | + + + + + -+ | Absolute | 3.40 | 1.00 - 3.90 | EXTERNAL | | | Lymphocytes | | K/uL | LAB | | + + + + + -+ | Absolute | 0.81 (H) | 0.00 - 0.80 | EXTERNAL | | | Monocytes | | K/uL | LAB | | + + + + + -+ | Absolute | 0.34 | 0.00 - 0.50 | EXTERNAL | | | Eosinophils | | K/uL | LAB | | + + + + + -+ | Absolute | 0.07 | 0.00 - 0.10 | EXTERNAL | | | Basophils | | K/uL | LAB | | + + + + + -+ | Na | 143 | 135 - 145 | EXTERNAL | | | | | mmol/L | LAB | | + + + + + -+ | K | 3.3 (L) | 3.5 - 4.9 | EXTERNAL | | | | | mmol/L | LAB | | + + + + + -+ | Cl | 107 | 99 - 109 mmol/L | EXTERNAL | | | | | | LAB | | + + + + + -+ | CO2 | 27 | 23 - 32 mmol/L | EXTERNAL | | | | | | LAB | | + + + + + -+ | Anion Gap | 12 | 5 - 20 mmol/L | EXTERNAL | | | | | | LAB | | + + + + + -+ | Glucose, | 273 (H) | 65 - 99 mg/dL | EXTERNAL | | | Fasting | | | LAB | | + + + + + -+ | BUN | 16 | 8 - 25 mg/dL | EXTERNAL | | | | | | LAB | | + + + + + -+ | Creatinine | 0.94 | 0.70 - 1.30 | EXTERNAL | | | | | mg/dL | LAB | | + + + + + -+ | BUN/Creatin | 17 | | EXTERNAL | | | ine Ratio | | | LAB | | + + + + + -+ | Calcium | 9.1 | 8.5 - 10.5 | EXTERNAL | | | | | mg/dL | LAB | | + + + + + -+ | Protein, | 6.7 | 6.3 - 8.2 g/dL | EXTERNAL | | | Total | | | LAB | | + + + + + -+ | Albumin | 3.8 | 3.3 - 4.8 g/dL | EXTERNAL | | | | | | LAB | | + + + + + -+ | Globulin | 2.9 | 1.3 - 4.9 g/dL | EXTERNAL | | | | | | LAB | | + + + + + -+ | A/G Ratio | 1.3 | 1.0 - 2.4 | EXTERNAL | | | | | | LAB | | + + + + + -+ | Bilirubin | 0.4 | 0.1 - 1.5 mg/dL | EXTERNAL | | | Total | | | LAB | | + + + + + -+ | ALP, | 104 | 35 - 115 U/L | EXTERNAL | | | External | | | LAB | | + + + + + -+ | AST | 23 | 10 - 45 U/L | EXTERNAL | | | | | | LAB | | + + + + + -+ | ALT | 20 | 10 - 65 U/L | EXTERNAL [...] + + -+ | CK, Total | 76 | 55 - 400 U/L | EXTERNAL | | | | | | LAB | | + + + + + -+ | INR | 0.9Comment: REFERENCE | | EXTERNAL | | | [...] + + + -+ | CK-MB | 1.9 | 0.5 - 3.6 ng/mL | EXTERNAL | | | | | | LAB | | + + + + + -+ | CK-MB Index | 2.5Comment: CK INDEX | | EXTERNAL | | [...] | + +---------+ + + Troponin I (09/16/2018 4:18 PM PDT) + + + + + + | Component | Value | Ref Range | Performed | Pathologist | | | | | At | Signature | + + + + + + | Troponin I, | 0.02Comment: 0.04 | 0.00 - 0.04 | EXTERNAL | | | Qual | ng/mL or less | ng/mL | LAB | | | | Negative, repeat | | | | | | testing in four to six | | | | | | hour if clinically | | | | | | indicted0.05 to 0.77 | | | | | | ng/mL | | | | | | Suspicious for | | | | | | myocardial injury. | | | | | | Serial measurements may | | | | | | be necessary to confirm | | | | | | or exclude the diagnosis | | | | | | of acute coronary | | | | | | syndrome. Repeat testing | | | | | | in four to six hours if | | | | | | indicated.0.78 or | | | | | | greater ng/mL | | | | | | Consistent with | | | | | | myocardial injury. | | | | | | Clinical and laboratory | | | | | | correlation recommended. | | | | | | Testing performed at | | | | | | [facility];[address] [facility] | | | | | | [facility];[place] [address] | | | | + + + + + + + + | Specimen | + + | | + + + +---------+ + + | Performing | Address | City/State/Zipcode | Phone Number | | Organization | | | | + +---------+ + + | EXTERNAL LAB | | | | + +---------+ + + D-Dimer (09/16/2018 4:18 PM PDT) + + + + + + | Component | Value | Ref Range | Performed | Pathologist | | | | | At | Signature | + + + + + + | D-DIMER, | 1.66 (H)Comment: D Dimer | 0.19 - 0.50 [...] | | | | | performed at [facility];[address] | | | | | | [facility];[place], [place] | | | | | | [address] | | | | + + + + + + + + | Specimen | + + | | + + + +---------+ + + | Performing | Address | City/State/Zipcode | Phone Number | | Organization | | | | + +---------+ + + | EXTERNAL LAB | | | | + +---------+ + + ECG 12 lead (09/16/2018 4:11 PM PDT) + + + + + + | Component | Value | Ref Range | Performed | Pathologist | | | | | At | Signature | + + + + + + | DIAGNOSIS: | Normal sinus | | EXTERNAL | | | | rhythmPossible Left | | LAB | | | | atrial enlargementLeft | | | | | | ventricular | | | | | | hypertrophyNonspecific | | | | | | ST and T wave | | | | | | abnormalityAbnormal | | | | | | ECGWhen compared with | | | | | | ECG of 14-SEP-2018 | | | | | | 05:46,Vent. rate has | | | | | | increased BY 26 | | | | | | BPMNon-specific change | | | | | | in ST segment in | | | | | | Anterolateral leadsT | | | | | | wave inversion now | | | | | | evident in Inferior | | | | | | leadsThis [...] | | | | | ONLY, -COMPUTER ([id number]), | | | | | | order editor Hortensia Carrillo | | | | | | (144) on 09/16/2018 | | | | | | 8:26:07 PM | | | | + + + + + + + + | Specimen | + + | | + + + + + | Narrative | Performed At | + + + | Historically converted procedure from [facility] environment | EXTERNAL LAB | + + + + +---------+ + + | Performing | Address | City/State/Zipcode | Phone Number | | Organization | | | | + +---------+ + + | EXTERNAL LAB | | | | + +---------+ + + documented in this encounter Visit Diagnoses + + | Diagnosis | + + | Atypical chest pain Other chest pain | + + | Uncontrolled type 2 diabetes mellitus with hyperglycemia (HCC) | + + documented in this encounter
--- OUTSIDE RECORDS SUMMARY | ~2019-10-12 | XMS | Encounter Summary ---
Demographics + + + | Address | [address] | | | [place] [address] | + + + | Home Phone [...] + | Sammi Kohler | ECON | [place] [address] | | + + + + + Care Team Providers + +------+ + | Care Hand Router Operator Name | Role | Phone | + +------+ + PCP | Unavailable | + +------+ + Encounter Details +--------+ + + + + | Date | Type | Department | Care Team | Description | +--------+ + + + + | 01/05/ | Emergency | [facility] | Mary Ramírez, | Abdominal pain; | | 2013 | | [facility] | [facility] [address] | Uncontrolled | | | | EMERG[facility]Y CENTER | [place] [address] | hypertension | | | | [address] | [phone] | | | | | [place], [place] | | | | | | [address] | | | | | | [phone] | | | +--------+ + + + [...] as of this encounter Progress Notes Kenrick Badillo, Provider Unknown - 01/06/2013 7:27 AM PSTFormatting of this note m ight be different from the original. Case Management by QUINN Lea at 01/06/13726 Author: QUINN Lea Service: (none) Author Type: Workcell Operator Filed: 01/06/13727 Date of Service: 01/06/13726 Status: Signed Senior Gamemaster: QUINN Lea (Workcell Operator) Received COLTON Alert: this patient has 14 ER visits in 12 months. docume nted in this encounter ED Notes Conversion Transaction, Provider Unknown - 01/05/2013 9:32 PM PSTFormatting of this note m ight be different from the original. ED Notes by Tona Vick RN at 01/05/132131 Author: Tona Vick RN Service: (none) Author Type: Registered Nurse Filed: 01/05/132132 Date of Service: 01/05/132131 Status: Signed Senior Gamemaster: Tona Vick RN (Registered Nurse) Given PO fluids after discussion with Darrell Nickerson. Awaits reevaluation. Tona Vick RN 01/05/132132 onver ivana Transaction, Provider Unknown - 01/05/2013 7:45 PM PST ED Notes by José Luis Salinas at 01/05/131944 Author: José Luis Salinas Service: (none) Author Type: Fence Repairman Filed: 01/05/131944 Date of Service: 01/05/131944 Status: Signed Senior Gamemaster: José Luis Salinas (Fence Repairman) Cosigner: Elmo Patton, EVE at 01/05/1325 02 MD at bedside. José Luis Salinas 01/05/131944 Nolvia Ann MD - 01/05/2013 7:34 PM PSTFormatting of this note might be different from the o riginal. ED Provider Notes by Xander Ramírez MD at 01/05/131933 Author: Xander Ramírez MD Service: (none) Author Type: Physician Filed: 01/08/13 1604 Date of Service: 01/05/131933 Status: Signed Senior Gamemaster: Xander Ramírez MD (Physician) [facility] Department of Emergency Medicine 7:33 PM History of Present Illness Patient Identification Norah Gr is a 57 y.o. male. Patient information was obtained from patient and EMS personnel. History/Exam limitations: mental status, does not seem high functioning. Patient presented to the Emergency Department by: Ambulance Chief Complaint Chief Complaint Patient presents with Headache Nausea EMS noted "dry heaving." Dizziness Abdominal Pain right quadrant The patient presents to ED with complaints of RLQ pain. There are other complaints he broug ht up with EMS as well, but he says the only new complaint is the abdominal pain, and this i s the reason he came in (this discovered after a lengthy conversation). Onset of symptoms w as 6:00 PM tonight, with a waxing and waning course since that time. The patient states that the pain came on suddenly tonight and describes the pain as "tiny sharp pains that feel lik e a knife in my stomach." The patient also complains of nausea, and dizziness. Onset of thes e symptoms was 6:15 pm tonight, with an ongoing course since that time. The patient states t hat at around 6:30 he began to feel very wobbly and began to feel dizzy because of weakness. Patient states that the room was spinning at this time and that it is difficult for him to stand up. The patient also complains of right eye blurriness, chest pain (chronic), describe s as left sided shooting pain that lasts only seconds at a time. Patient states that when hi s BP gets high he gets blurry vision in one eye which lasts 15 to 45 seconds and feels light headed, he states this has been happening over the past 2 weeks, and his primary is aware an d working on this with him. Patient does feel that the symptoms he is having are due to his blood pressure going high. Patient states that he is seeing his PCP for this. Patient denies pain or swelling in legs, vomiting, diarrhea, or constipation. At present, he is having the abdominal pain but none of the other symptoms. Care prior to arrival consisted of EMS taylor sport. Patient states he lives in a care facility. Past Medical History Diagnosis Date Diabetes mellitus type II Atrial fibrillation Hypertension Hyperlipidemia Anxiety Depression WARD (obstructive sleep apnea) 08/11/2012 Basal cell carcinoma 09/26/2012 Unspecified visual disturbance Past Surgical History Procedure Date Unlisted procedure arthroscopy Knee surgery Leg surgery LLE Colonoscopy Cholecystectomy, laparoscopic 09/12/2012 Procedure: LAPAROSCOPIC - CHOLECYSTECTOMY; Surgeon: Jevon Vargas DO; Location: [facility]; Service: General; Laterality: N/A; Abdominal surgery Cholecystectomy Skin cancer excision 10/10/2012 Procedure: EXCISION - SKIN CANCER; Surgeon: Sy Fierro MD; Location: [facility] ; Service: Plastics; Laterality: Left; upper arm and upper back w/frozen section Prior to Admission medications Medication Sig Start Date End Date Taking? Authorizing Provider ARIPiprazole (ABILIFY) 10 MG tablet Take 10 mg by mouth daily. Historical Provider atenolol (TENORMIN) 100 MG tablet Take 200 mg by mouth nightly. Historical Provider citalopram (CELEXA) 40 MG tablet Take 40 mg by mouth daily. Historical Provider cloNIDine [...] on file Social History Narrative Lives in fpc, IAD[facility], full code Family History Problem Relation Age of Onset Heart disease Father Heart disease Sister Diabetes type II Sister Review of Systems Constitutional: No fever ENT: No blindness, no rhinitis, no sore throat Yes R. Eye blurriness Cardiovascular: Yes chest pain (chronic)-left sided shooting pain that lasts only seconds Respiratory: No shortness of breath, cough Gastrointestinal: No V/D, black or bloody stools Yes RLQ pain, nausea, Genitourinary: No dysuria, hematuria Musculoskeletal: No acute physical injury. Skin: No laceration or rash Neuro and psych: No head injury, seizure, headache Yes lightheaded, weakness, dizziness Endocrine/Heme/Lymph: No easy bruising or bleeding. Physical Exam Filed Vitals: 01/05/131949 BP: 173/65 Pulse: 62 Temp: 98.3 F (36.8 C) Resp: Vital Sign interpretation: Hypertensive, otherwise WNL Pulse Oximetry interpretation: General: Alert, in no apparent distress, does not appear to be high functioning Eyes: Non-icteric ENT: Normal external exam, Extraocular motion intact, PERRLA, blurry but this is baseline Neck: Supple Cardiovascular: Warm and well perfused Respiratory: No respiratory distress Abdomen: Focal RLQ tenderness makes him grimace, also some LLQ tenderness Extremities: BARNARD, Mild bilateral lower extremity edema, no calf tenderness Back: Normal ROM Skin: Color normal Warm and dry No rash Neuro: Alert, no AMS No gross motor/sensory deficits Medical Decision Making and Emergency Department Course ED Department Course Patient is a difficult historian. Initially EMS suggested that primary complaint was right eye vision changes, weakness, and dizziness. Patient states that he did have all of these sy mptoms that that this is an ongoing problem with his HTN. I repeatedly asked him about these symptoms and he confirmed nothing new happening with these symptoms. I asked him what had brought him into the ED today and patent states that his abdominal pain is new. On exam allen n worse in RLQ but also existed in LLQ. I feel that most important to rule out intraabdomin al pathology: appendicitis, diverticulitis, bowel obstruction, mesenteric ischemia, AAA, UT I. Regarding his HTN he does continue to be elevated though not malignantly so and has been seeing his PCP for modification of his medications and has and appointment in 2 days As sym ptoms have not changed will allow him to follow up as planned. 9:00 PM- Reviewed CT results- Impression: 1. No acute findings identified. 2. In particular , the appendix and cecum appear normal. 3. Small, residual right perihepatic subcapsular flu id collection, a residual of the previous gallbladder surgery in September 2012. 4. Mild, chron ic hepatic steatosis. 5. Cholecystectomy with normal bile ducts. 6. 2 right hepatic cyst, marcus th benign. 7. Chronic bone and spine findings as noted. 9:30 PM- Reviewed lab results. Hyperglycemia. Troponin negative at 0.020. 9:58 PM- Rechecked patient. Patient is stable but still feeling pain at this time, though i mproved. I see no signs of dangerous pathology causing this problem from my work up in the ED. Patient states that he is not dizzy or having any visual blurriness at this time. Discus sed patient's blood pressure, patient states that he will attend appointment with his PCP to discuss his hypertension. All questions and concerns addressed. Will discharge home. Records Reviewed Old medical records. Nursing notes. Reviewed patient COLTON alert. Laboratory Evaluation Results Procedure Component Value Ref Range Date/Time Cardiac Panel [[id number]] (Abnormal) Collected:01/05/131939 Order Status:Completed Updated:01/05/132118 WBC 9.9 3.8 - 11.0 K/uL RBC 5.07 4.20 - 5.70 M/uL HGB 13.2 13.2 - 17.0 g/dL HCT 40.3 39.0 - 50.0 % MCV 79.6 (L) 80.0 - 100.0 fl MCH 26.1 (L) 27.0 - 34.0 pg MCHC 32.8 32.0 - 35.5 g/dL RDW SD 48.1 37 - 53 fl PLT 264 150 - 400 K/uL MPV 7.9 fl DIFF TYPE AUTOMATED NEUTROPHILS 55.6 % LYMPHOCYTES 30.8 % MONOCYTES 10.4 % EOSINOPHILS 2.8 % BASOPHILS 0.4 % NEUTROPHILS ABS 5.5 1.9 - 7.4 K/uL LYMPHOCYTES ABS 3.0 1.0 - 3.9 K/uL MONOCYTES ABS 1.0 (H) 0 - 0.8 K/uL EOSINOPHILS ABS 0.3 0 - 0.5 K/uL BASOPHILS ABS 0.0 0 - 0.1 K/uL SODIUM 143 135 - 143 mmol/L POTASSIUM 3.6 3.5 - 4.9 mmol/L CHLORIDE 104 99 - 109 mmol/L CO2 30 23 - 32 mmol/L ANION GAP AGAP 12 5 - 20 mmol/L GLUCOSE 242 (H) 65 - 99 mg/dL BUN 16 8 - 25 mg/dL CREATININE 1.31 (H) 0.70 - 1.30 mg/dL BUN/CREAT 12 CALCIUM 9.1 8.5 - 10.2 mg/dL TOTAL PROTEIN 7.5 6.3 - 8.2 g/dL Albumin 3.5 (L) 3.6 - 5.0 g/dL GLOBULIN 4.0 1.3 - 4.9 g/dL A/G 0.9 (L) 1.0 - 2.4 TBIL 0.3 0.1 - 1.5 mg/dL ALK PHOS 103 35 - 115 U/L AST 20 10 - 45 U/L ALT 26 10 - 65 U/L EGFR 60 (L) >60 mL/min/1.73m2 CPK 161 55 - 400 U/L INR 1.0 APTT 25 23 - 32 seconds MMB 2.6 0.5 - 3.6 ng/mL CK-MB Index 1.6 Troponin I, Lab [[id number]] Collected:01/05/131939 Order Status:Completed Updated:01/05/132118 Specimen Information:Blood TROPONIN I <0.020 0.00 - 0.10 ng/mL I personally reviewed the lab results and they have been posted to the chart. Pertinent po sitive and negative findings have been addressed appropriately. Radiology and EKG Evaluation Imaging Results CT Abdomen & Pelvis with contrast (Final result) Result time:01/05/132040 Final result by Rad Results In Richard (01/05/13 20:41:49) Impression: 1. No acute findings identified. 2. In particular, the appendix and cecum appear normal. 3. Small, residual right perihepatic subcapsular fluid collection, a residual of the previ ous gallbladder surgery in September 2012. 4. Mild, chronic hepatic steatosis. 5. Cholecystectomy with normal bile ducts. 6. 2 right hepatic cyst, both benign. 7. Chronic bone and spine findings as noted. Narrative: [facility] GR CT ABDOMEN PELVIS W CONTRAST 01/05/2013 8:21 PM History: 57 years. Male. Acute right lower quadrant abdominal pain and vomiting. Technique: No oral contrast was given. During a bolus intravenous administration of 80 cc of nonionic iodine contrast, thin slice imaging was performed throughout the abdomen and pel vis during portal venous phase of contrast enhancement, displayed at 5 mm thick slices. Comparison examination: 09/18/12. ABDOMEN: Low-attenuation is noted throughout the liver, indicating mild steatosis, unchange d as compared with the 09/18/12 a small 19 mm well-circumscribed nodule is visualized on the anterior surface of the liver, image 27 series 3, with internal CT density of. A small subc apsular fluid collection is noted this region on the postoperative CT scan of September 18 3. No other liver cysts or solid nodules identified. No bile duct dilatation noted. The gall bladder is surgically absent. The thickness, density and enhancement of the pancreas are nor mal. The portal venous system shows normal enhancement. No celiac, peripancreatic, or retr ocrural adenopathy visualized. The splenic volume and texture are normal. The lower lung kong and pleural spaces are partially visualized and appear clear. The gas troesophageal junction is normal. The stomach shows normal wall thickness and position. Th e duodenum is unremarkable. The adrenal glands are normal in thickness, without visible nodu le. Small cysts are visualized in the right kidney, the largest measuring 31 mm. The left ki dney is normal. The abdominal aorta shows normal caliber, without calcification. No periaor tic lymphadenopathy visualized. PELVIS: The caliber and wall thickness of the entire colon are normal, without diverticula or mass. Small intraluminal polyps cannot be excluded by this exam. The appendix is visuali zed and appears normal. The loops of small bowel show normal caliber throughout the abdomen and pelvis, without edema or wall thickening. The mesenteric adipose tissue is dark, without infiltrate or edema. No free fluid, free air or peritoneal nodules visualized. The urinary bladder wall is thin and uniform, without mass. The density of the urine is uniform and no rmal. The distal ureters appear normal. The prostate gland is small. The iliac and inguina l lymph node chains are normal. No ventral or inguinal hernia visualized. Bone windows demonstrate a healed right inferior additional ramus fracture. Mild spondylosi s is visualized in the lower lumbar spine. No focal osteolytic process visualized in the ran ge of the examination. EKG Interpretation Time: 2024 Rate: 63 Rhythm: NSR Normal QRS Non specific T-Wave abnormalities Interpreted by Xander Ramírez MD ED Medication Administration from 01/05/2013 1930 to 01/05/2013 2305 Date/Time Order Dose Route Action Action by 01/05/20132132 sodium chloride 0.9 % bolus 1,000 mL 0 mL Intravenous Stopped Tona paredes RN 01/05/20132028 sodium chloride 0.9 % bolus 1,000 mL 1,000 mL Intravenous New Bag Elmo Patton RN 01/05/20132030 ondansetron (ZOFRAN) injection 4 mg 4 mg Intravenous Given Elmo Patton RN 01/05/20132012 iopamidol (ISOVUE-300) 61 % injection 100 mL 100 mL Intravenous Given Jimmie Durán ED Diagnoses Final diagnoses Abdominal pain Uncontrolled hypertension Disposition: ED Disposition Discharge Condition at discharge: Stable Follow-up Information Follow up With Details Comments Contact Info Jerrell Diego DO [address] [id number] [facility] Emergency Department If symptoms worsen [address] [id number] Discharge Medications: New Prescriptions No new medications Additional Documentation Procedures Attending Note: Documentation assistance provided by Tram Slaughter (Scribe). Information recorded by the scribe has been reviewed and validated by . Troy laughlin with its contents. MD Xander Pineda MD 01/08/131603 onversion Transacti on, Provider Unknown - 01/05/2013 7:31 PM PSTFormatting of this note might be different fro m the original. ED Notes by José Luis Salinas at 01/05/131930 Author: José Luis Salinas Service: (none) Author Type: Fence Repairman Filed: 01/05/131933 Date of Service: 01/05/131930 Status: Signed Senior Gamemaster: José Luis Salinas (Fence Repairman) Cosigner: Elmo Patton RN at 01/05/13 20 01 Pt arrives via [facility]. States dizziness, blurry vision, Rt lower quadrant pain, nauseous and some vomit which was clear bile. BP en route was 166/72, pulse 76. Blood sugar was 242. A ttempted but didn't not get IV access. José Luis Salinas 01/05/131933 onver ivana Transaction, Provider Unknown - 01/05/2013 7:30 PM PST ED Notes by Elmo Patton RN at 01/05/131929 Author: Elmo Patton RN Service: (none) Author Type: Registered Nurse Filed: 01/05/131929 Date of Service: 01/05/131929 Status: Signed Senior Gamemaster: Elmo Patton RN (Registered Nurse) Bed:10
Expected date:
Expected time:
Means of arrival:
Comments:
onver ivana Transaction, Provider Unknown - 01/05/2013 7:21 PM PST ED Notes by Vadim Bernal RN at 01/05/131920 Author: Vadim Bernal RN Service: (none) Author Type: Registered Nurse Filed: 01/05/131920 Date of Service: 01/05/131920 Status: Signed Senior Gamemaster: Vadim Bernal RN (Registered Nurse) Per EMS: [facility]ident of [facility]. Patient complaining of headache, HTN, dizziness, nausea and right abdo alyssa pain. Patient received flu shot today. Vadim Bernal RN 01/05/131920 docume nted in this encounter Plan of Treatment +--------+ + + + + | Date | Type | Specialty | Care Team | Description | +--------+ + + + + | 10/16/ | Anti-coag | Anticoagulation | Brittany Zaragoza | | | 2019 | visit | | [address] | | | | | | [place], | | | | | | [place] [address] | | | | | | [phone] | | | | | | | | +--------+ + + + + documented as of this encounter Procedures + +--------+ + + + | Procedure Name | Priori | Date/Time | Associated Diagnosis | Comments | | | ty | | | | + +--------+ + + + | ECG 12 LEAD | Routin | 01/05/2013 | | Results for this | | | e | 8:25 PM | | procedure are in the | | | | PST | | results section. | + +--------+ + + + | CT ABDOMEN PELVIS W | Routin | 01/05/2013 | | Results for this | | CONTRAST | e | 8:21 PM | | procedure are in the | | | | PST | | results section. | + +--------+ + + + documented in this encounter Results ECG 12 lead (01/05/2013 8:25 PM PST) + + + + + + | Component | Value | Ref Range | Performed | Pathologist | | | | | At | Signature | + + + + + + | DIAGNOSIS: | Poor data quality, | | EXTERNAL | | | | interpretation may be | | LAB | | | | adversely affectedNormal | | | | | | sinus rhythmNonspecific | | | | | | T wave | | | | | | abnormalityAbnormal | | | | | | ECGWhen compared with | | | | | | ECG of 24-DEC-2012 | | | | | | 20:52,No significant | | | | | | [...] (500), | | | | | | magazine editor SANYA ALDANA ([id number]) | | | | | | on 01/06/2013 6:42:06 AM | | | | | | | | | | + + + + + + + + | Specimen | + + | | + + + + + | Narrative | Performed At | + + + | Historically converted procedure from [facility] Epic environment | EXTERNAL LAB | + + + + +---------+ + + | Performing | Address | City/State/Zipcode | Phone Number | | Organization | | | | + +---------+ + + | EXTERNAL LAB | | | | + +---------+ + + CT Abdomen Pelvis w Contrast (01/05/2013 8:21 PM PST) + + | Specimen | + + | | + + + + + | Impressions | Performed At | + + + | 1. No acute findings identified. 2. In particular, the appendix | | | and cecum appear normal. 3. Small, residual right perihepatic | | | subcapsular fluid collection, a residual of the previous gallbladder | | | surgery in September 2012. 4. Mild, chronic hepatic steatosis. 5. | | | Cholecystectomy with normal bile ducts. 6. 2 right hepatic cyst, | | | both benign. 7. Chronic bone and spine findings as noted. | | | | | + + + + + + | Narrative | Performed At | + + + | [facility] CT ABDOMEN PELVIS W CONTRAST 01/05/2013 8:21 PM | | | History: 57 years. Male. Acute right lower quadrant abdominal | | | pain and vomiting. Technique: No oral contrast was given. During | | | a bolus intravenous administration of 80 cc of nonionic iodine | | | contrast, thin slice imaging was performed throughout the abdomen and | | | pelvis during portal venous phase of contrast enhancement, displayed | | | at 5 mm thick slices. Comparison examination: 09/18/12. | | | ABDOMEN: Low-attenuation is noted throughout the liver, indicating | | | mild steatosis, unchanged as compared with the 09/18/12 a small 19 mm | | | well-circumscribed nodule is visualized on the anterior surface of the | | | liver, image 27 series 3, with internal CT density of. A small | | | subcapsular fluid collection is noted this region on the postoperative | | | CT scan of September 18, 2012. No other liver cysts or solid nodules | | | identified. No bile duct dilatation noted. The gallbladder is | | | surgically absent. The thickness, density and enhancement of the | | | pancreas are normal. The portal venous system shows normal | | | enhancement. No celiac, peripancreatic, or retrocrural adenopathy | | | visualized. The splenic volume and texture are normal. The lower | | | lung kong and pleural spaces are partially visualized and appear | | | clear. The gastroesophageal junction is normal. The stomach shows | | | normal wall thickness and position. The duodenum is unremarkable. | | | The adrenal glands are normal in thickness, without visible nodule. | | | Small cysts are visualized in the right kidney, the largest measuring | | | 31 mm. The left kidney is normal. The abdominal aorta shows normal | | | caliber, without calcification. No periaortic lymphadenopathy | | | visualized. PELVIS: The caliber and wall thickness of the | | | entire colon are normal, without diverticula or mass. Small | | | intraluminal polyps cannot be excluded by this exam. The appendix is | | | visualized and appears normal. The loops of small bowel show normal | | | caliber throughout the abdomen and pelvis, without edema or wall | | | thickening. The mesenteric adipose tissue is dark, without infiltrate | | | or edema. No free fluid, free air or peritoneal nodules visualized. | | | The urinary bladder wall is thin and uniform, without mass. The | | | density of the urine is uniform and normal. The distal ureters | | | appear normal. The prostate gland is small. The iliac and inguinal | | | lymph node chains are normal. No ventral or inguinal hernia | | | visualized. Bone windows demonstrate a healed right inferior | | | additional ramus fracture. Mild spondylosis is visualized in the lower | | | lumbar spine. No focal osteolytic process visualized in the range of | | | the examination. | | + + + + + | Procedure Note | + + | Richard, Rad Conversion - 09/28/2018 3:24 PM PDT [facility] GRCT ABDOMEN PELVIS W | | [id number]/30/2013 8:21 PM History: 57 years. Male. Acute right lower quadrant | | abdominal pain and vomiting. Technique: No oral contrast was given. During a bolus | | intravenous administration of 80 cc of nonionic iodine contrast, thin slice imaging was | | performed throughout the abdomen and pelvis during portal venous phase of contrast | | enhancement, displayed at 5 mm thick slices. Comparison examination: 09/18/12. ABDOMEN: | | Low-attenuation is noted throughout the liver, indicating mild steatosis, unchanged as | | compared with the 09/18/12 a small 19 mm well-circumscribed nodule is visualized on the | | anterior surface of the liver, image 27 series 3, with internal CT density of. A small | | subcapsular fluid collection is noted this region on the postoperative CT scan of September | | 2012. No other liver cysts or solid nodules identified. No bile duct dilatation | | noted. The gallbladder is surgically absent. The thickness, density and enhancement of | | the pancreas are normal. The portal venous system shows normal enhancement. No celiac, | | peripancreatic, or retrocrural adenopathy visualized. The splenic volume and texture | | are normal. The lower lung kong and pleural spaces are partially visualized and appear | | clear. The gastroesophageal junction is normal. The stomach shows normal wall | | thickness and position. The duodenum is unremarkable. The adrenal glands are normal in | | thickness, without visible nodule. Small cysts are visualized in the right kidney, the | | largest measuring 31 mm. The left kidney is normal. The abdominal aorta shows normal | | caliber, without calcification. No periaortic lymphadenopathy visualized. PELVIS: The | | caliber and wall thickness of the entire colon are normal, without diverticula or mass. | | Small intraluminal polyps cannot be excluded by this exam. The appendix is visualized | | and appears normal. The loops of small bowel show normal caliber throughout the abdomen | | and pelvis, without edema or wall thickening. The mesenteric adipose tissue is dark, | | without infiltrate or edema. No free fluid, free air or peritoneal nodules visualized. | | The urinary bladder wall is thin and uniform, without mass. The density of the urine is | | uniform and normal. The distal ureters appear normal. The prostate gland is small. | | The iliac and inguinal lymph node chains are normal. No ventral or inguinal hernia | | visualized. Bone windows demonstrate a healed right inferior additional ramus fracture. | | Mild spondylosis is visualized in the lower lumbar spine. No focal osteolytic process | | visualized in the range of the examination. IMPRESSION: 1. No acute findings | | identified.2. In particular, the appendix and cecum appear normal.3. Small, residual | | right perihepatic subcapsular fluid collection, a residual of the previous gallbladder | | surgery in September 2012.4. Mild, chronic hepatic steatosis.5. Cholecystectomy with | | normal bile ducts.6. 2 right hepatic cyst, both benign.7. Chronic bone and spine | | findings as noted. | |5. Cholecystectomy with normal bile ducts. | |6. 2 right hepatic cyst, both benign. | |7. Chronic bone and spine findings as noted. | | | | | + + documented in this encounter Visit Diagnoses + + | Diagnosis | + + | Abdominal pain Abdominal pain, unspecified site | + + | Uncontrolled hypertension Unspecified essential hypertension | + + documented in this encounter
--- OUTSIDE RECORDS SUMMARY | ~2019-10-12 | XMS | Encounter Summary ---
Demographics + + + | Address | [address] | | | [place] [address] | + + + | Home Phone | | + + + | Preferred Language | Unknown | + + + | Marital Status | | + + + | [employer] Affiliation | 1027 | + + + [...] Sammi Kohler | ECON | [place] [address] | | + + + + + Care Team Providers + +------+ + | Care Network Technician Name | Role | Phone | + +------+ + | iMk Diego DO | PCP | | + +------+ + Encounter Details +--------+ + + + + | Date | Type | Department | Care Team | Description | +--------+ + + + + | 10/28/ | Skilled | [facility] | Charlette Panda, | Type 2 diabetes | | 2019 | Nursing | [facility] | [employer] [address] | mellitus with | | | Facility | [facility] [address] | hyperglycemia, with | | | | [address] | [place] [address] | long-term current | | | | [place], [place] | [phone] | use of insulin (HCC) | | | | [address] | | (Primary Dx); | | | | [phone] | | Chronic obstructive | | | | | | pulmonary disease, | | | | | | unspecified COPD | | | | | | type (HCC); Debility | +--------+ + + + + Social [...] documented as of this encounter Progress Notes Charlette Panda ARNP - 10/28/2018 12:15 PM PDT SNF needed for: deconditioning, impaired ADL/mobility Provider to see for: medication mananagement, acute on chronic disease management, f/u phys ical debility HPI: Resident of [facility] with a qualifying stay at [facility] from 10/11/18-10/16/18. Kevyn he a62 y.o.malepast medical history of developmental delay, COPD not on home O2, obstructive sleep apnea noncompliant with CPAP, anxiety, depression, chronic diarrhea, type 2 diabetes mellitus not well controlled and chronic anticoagulation and weakness who had not been taking his medications regularly as he had lost his PCP and was stretching out all of his medicationswho was admitted on10/11/2018with complaint of chest pain, near syncope, and dyspnea, and uncontrolled hypertension and hyperglycemia, most likely secondary to him t hat taking his medications as he should.Patient was ruled out from having DE on serial car diac enzymes, blood pressures and blood sugars were better controlled, OT and PT saw the pat ient recommended SNF and the patient was subsequently discharged to [facility]. Discharg ed to SNF for PT/OT, medication management and senior living. Provider reviewed and agree in full with HPI. Review of Systems Constitutional: negative for fatigue, fevers, sweats Respiratory: negative for SOB, cough, dyspnea Cardiovascular: negative for edema, chest pain, dyspnea, exertional chest pressure/discomf ort and palpitations Gastrointestinal: negative for abdominal pain and change in bowel habits Genitourinary: negative for dysuria, frequency, hesitancy MSK: negative contractures, myopathy, arthralgias Neurological: negative for headaches and focal weakness All other systems are reviewed and negative Past Medical History: Diagnosis Date Acute pulmonary embolism (HCC) 10/14/2017 Anxiety ARF (acute renal failure) ([facility]) 03/02/2013 Atrial fibrillation (HCC) Basal cell carcinoma 09/26/2012 arm and back COPD (chronic obstructive pulmonary disease) ([facility]) 03/02/2013 hypoxemia on 2 lts nc Depression Development delay Diabetes mellitus type II DVT (deep venous thrombosis) ([facility]) 03/29/2018 Facial droop 07/08/2013 GIB (gastrointestinal bleeding) [...] - CHOLECYSTECTOMY; Surgeon: Jevon Vargas DO; Location: [facility] MAIN OR; Service: General; Laterality: N/A; COLONOSCOPY COLONOSCOPY 03/04/2013 Procedure: COLONOSCOPY; Surgeon: Howie Gibson MD; Location: [facility] ENDOSCOPY; Service: Gastroen terology; Laterality: [...] FROZEN SECTION; Surgeon: Sy murcia MD; Location: [facility] MAIN OR; Service: Plastics; Laterality: Left; forearm SKIN BIOPSY SKIN CANCER EXCISION Left 10/10/2012 Procedure: EXCISION - SKIN CANCER; Surgeon: Sy Fierro MD; Location: [facility] MAIN OR; Service: Plastics; Laterality: Left; upper arm and upper back w/frozen section UPPER GASTROINTESTINAL ENDOSCOPY UPPER GASTROINTESTINAL ENDOSCOPY 03/03/2013 Procedure: ESOPHAGOGASTRODUODENOSCOPY; Surgeon: Howie Gibson MD; Location: [facility] ENDOSCOPY; Se rvice: Gastroenterology; Laterality: N/A; Social [...] Lives alone x 1 wk, moved from [facility], , 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 2 falls in the last 6 months. Family History Problem Relation Age of Onset Heart disease Father Heart disease Sister Diabetes, NIDDM Sister Other (see comment) Brother Heart Problems Allergies: Allergies Allergen Reactions Nitroglycerin Swelling Tongue swelling Vitamin B12 Rash Rash The following portions of the patient's history were reviewed and updated as appropriate: a llergies, current medications, past family history, past medical history, past social histor y, past surgical history and problem list. Current Medications: Current Outpatient Medications Medication Sig Dispense Refill acetaminophen (TYLENOL) 325 mg tablet Take 2 tablets by mouth every 4 hours as needed f or Pain (or fever >= 38.6 C (101.5 F)). 30 tablet 1 apixaban (ELIQUIS) 5 mg tablet Take 1 tablet by mouth 2 times daily. 60 tablet 0 ARIPiprazole (ABILIFY) 5 mg tablet Take 1 tablet by mouth Daily. 30 tablet 0 aspirin 81 MG tablet Take 1 tablet by mouth Daily. 30 tablet 0 Blood Glucose Monitoring Suppl (BLOOD GLUCOSE MONITOR SYSTEM) w/Device KIT Dispense bra nd per patient preference 1 each 0 budesonide-formoterol (SYMBICORT) 160-4.5 mcg/puff inhaler Inhale 2 puffs into the lung s 2 times daily. 1 Inhaler 0 carvedilol (COREG) 12.5 mg tablet Take 1 tablet by mouth 2 times daily (with breakfast & dinner). 60 tablet 0 fenofibrate 160 mg tablet Take 1 tablet by mouth Daily. 30 tablet 0 Glucose Blood (BLOOD GLUCOSE TEST STRIPS) STRP For blood sugar testing 4 times daily 20 0 each 11 hydrALAZINE (APRESOLINE) 25 mg tablet Take 1 tablet by mouth 2 times daily. 60 tablet 0 insulin detemir (LEVEMIR FLEXTOUCH) 100 units/mL injection (pen) Inject 45 Units under the skin nightly. 12 mL 0 insulin lispro (HUMALOG KWIKPEN) 100 units/mL injection (pen) Inject 5 Units under the skin 3 times daily (before meals). Plus sliding scale 15 mL 0 Insulin Pen Needle (BD PEN NEEDLE KYAW U/F) 32G X 4 MM MISC For insulin administration 4 times daily 200 each 11 Lancets (ACCU-CHEK MULTICLIX) MISC 1 each by Other route 4 times daily. 204 each 0 Lancets Misc. MISC For blood sugar checks 4 times daily 200 each 11 lisinopril (PRINIVIL, ZESTRIL) 10 mg tablet Take 2 tablets by mouth Daily. 60 tablet 0 metFORMIN (GLUCOPHAGE) 500 mg tablet Take 1 tablet by mouth 2 times daily (with breakfa st & dinner). 60 tablet 0 NIFEdipine (ADALAT CC) 60 MG 24 hr tablet Take 1 tablet by mouth Daily. 30 tablet 0 pravastatin (PRAVACHOL) 80 MG tablet Take 1 tablet by mouth nightly. 30 tablet 0 tamsulosin (FLOMAX) 0.4 mg CAPS Take 1 capsule by mouth 2 times daily. 60 capsule 0 No current facility-administered medications for this visit. Objective: Vitals 10/16/2018 10/18/2018 10/19/2018 11/01/2018 SYSTOLIC 169 158 140 134 DIASTOLIC 87 74 74 62 Pulse - 76 69 78 Temp - 97.9 98.2 97.1 Resp - 16 22 18 Weight - 219 lbs 219 lbs 216 lbs Height - 5' 11" 5' 11" 5' 11" SPO2 - 97 97 97 BMI - 30.6 kg/m2 30.6 kg/m2 30.2 kg/m2 Physical Exam Constitutional: WDWN older gentleman, dressed appropriate for the weather, sitting in exam room conversant and in no acute distress Psych: Appropriate mood and affect. HEENT: NCAT. Lungs: CTAB, no adventitious sounds auscultated Cardiac: Regular rate and rhythm, S1S2 noted, no audible m/r/g. Abdo: Soft, ntnd, BS heard x 4 qaurds, no palpable masses PV: Uniformly pigmented no swelling or inflammation Musculo: No gross visible abnormalities Neuro: Alert, conversant, no neuro focal deficits Last Known Lab Values & Diagnostics: Chemistry Component Value Date/Time NA 139 10/16/2018 0358 K 3.7 10/16/2018 0358 CL 106 10/16/2018 0358 CO2 27 10/16/2018 0358 GLU 175 (H) 10/16/2018 0358 GLU 337 (A) 10/12/2018 0823 BUN 19 10/16/2018 0358 CREA 0.7 10/16/2018 0358 ANIONGAP 10 10/16/2018 0358 Component Value Date/Time CALCIUM 8.3 (L) 10/16/2018 0358 ALKPHOS 125 (H) 10/12/2018 0327 AST 22 10/12/2018 0327 ALT 25 10/12/2018 0327 ALBUMIN 2.9 (L) 10/12/2018 0327 BILITOT 0.5 09/21/2018 1810 Lab Results Component Value Date WBC 11.12 (H) 10/16/2018 HGB 15.3 10/16/2018 HCT 44.5 10/16/2018 MCV 83.9 10/16/2018 PLT 218 10/16/2018 Lab Results Component Value Date NA 139 10/16/2018 K 3.7 10/16/2018 CL 106 10/16/2018 CO2 27 10/16/2018 BUN 19 10/16/2018 EGFR >60 10/16/2018 CALCIUM 8.3 (L) 10/16/2018 No results found for: TSH No components found for: HGBA1C @LASTLIPIDS@ No results found for: IRON, TIBC, FERRITIN No results found for: [id number] No results found for: FOLATE No results found for: DIGOXIN No results found for: URICACID Cardiographics ECG: PERTINENT IMAGING/ PROCEDURES/ DIAGNOSTICS: @[id number]@ Lab and Diagnostics Review and Summary: Patient's most recent labs, and or imaging, diagnostics reviewed in detail with patient in clinic today. See above. @ASSESSMENTPLANBEGIN@ Assessment and Plan: Visit Diagnoses, Patient Counseling, and Associated Orders: The patient interviewed and examined. Medical record reviewed. Good rehabilitation candidat e. Type 2 diabetes mellitus with hyperglycemia, with long-term current use of insulin (HCC) Partial control, BS range 110-300 range. Continue metformin, humalog therapy, no known ASEs to therapy. Continue to monitor. Chronic obstructive pulmonary disease, unspecified COPD type (HCC) Controlled, continue routine respiratory therapies- symbicort, no known ASEs. Counseled deep breathing exercises ( 10-15 slow deep breaths x 2 up To TID as tolerated), p ulmonary and airway clearance. Debility Continues with evidence of progressing towards PT therapy goals, continue to course complet ion. documented in thi s encounter Plan of [...] | | | | | | [place] [id number] | | | | | | [phone] | | | | | | | | +--------+ + + + + documented as of this encounter Visit Diagnoses + + | Diagnosis | + + | Type 2 diabetes mellitus with hyperglycemia, with long-term current use of insulin | | (HCC) - Primary | + + | Chronic obstructive pulmonary disease, unspecified COPD type (HCC) | + + | Debility Debility, unspecified | + + documented in this encounter
--- OUTSIDE RECORDS SUMMARY | ~2019-10-12 | XMS | Encounter Summary ---
Demographics + + + | Address | [address] | | | [place] [address] | + + + | Home Phone | | + + + | Preferred Language | Unknown | + + + | Marital Status | | + + + | Mormon Affiliation | 1027 | + + + | Race | White | + + + | Ethnic Group | Not or | + + + Author + + + | Author | [facility] | | | and [place] | + + + | Organization | [facility] | | | and [place] | + + + | Address | Unknown | + + + | Phone | Unavailable | + + + Support + + + + + | Name | Relationship | Address | Phone | + + + + + | Sammi Kohler | E[place] | [place] [address] | | + + + + + Care Team Providers + +------+ + | Care Government Property Inspector Name | Role | Phone | + +------+ + PCP | Unavailable | + +------+ + Encounter Details +--------+ + + + + | Date | Type | Department | Care Team | Description | +--------+ + + + + | 12/22/ | Emergency | [facility] | Yaakov Bridges DO | Cardiac murmur; | | 2014 | | MEDICAL CENTER | [address] | Chest wall pain; | | | | EMERGENCY CENTER | [address], | Diabetes type 1, | | | | [address] | [place] [address] | uncontrolled (HCC); | | | | [place], [place] | [phone] | Chronic renal | | | | [address] | | insufficiency; GERD | | | | [phone] | | (gastroesophageal | | | | | | reflux disease) | +--------+ + + + + Social [...] ED Notes Conversion Transaction, Provider Unknown - 12/22/2013 5:34 PM PSTFormatting of this note m ight be different from the original. ED Notes by Jenn Moralez RN at 12/22/13 224 Author: Jenn Moralez RN Service: (none) Author Type: Registered Nurse Filed: 12/22/13 173 Date of Service: 12/22/131733 Status: Signed Commercial Reporter: Jenn Moralez RN (Registered Nurse) Phone call placed to [facility] to notify pt's return. Jenn Gutierrez RN 12/22/13 173 onver ivana Transaction, Provider Unknown - 12/22/2013 4:08 PM PST ED Notes by Jenn Moralez RN at 12/22/13 1607 Author: Jenn Moralez RN Service: (none) Author Type: Registered Nurse Filed: 12/22/13 1609 Date of Service: 12/22/13 160 Status: Signed Commercial Reporter: Jenn Moralez RN (Registered Nurse) Pt called stating, "The pain went away." Will hold pain medication at this time. Informed p t to please inform me if pain returned. Stated understanding. Jenn Gutierrez RN 12/22/13 3029 onver ivana Transaction, Provider Unknown - 12/22/2013 2:55 PM PST ED Notes by Jenn Moralez RN at 12/22/13 8885 Author: Jenn Moralez RN Service: (none) Author Type: Registered Nurse Filed: 12/22/13 1452 Date of Service: 12/22/131454 Status: Signed Commercial Reporter: Jenn Moralez, RN (Registered Nurse) Dr. Bridges at bedside. Jenn Gutierrez RN 12/22/13 4368 Saima chetanYaakov DO - 12/22/2013 2:47 PM PSTFormatting of this note might be different from the or iginal. ED Provider Notes by Yaakov Bridges DO at 12/22/13 1490 Author: Yaakov Bridges DO Service: Emergency Department Author Type: Physician Filed: 12/29/13 1205 Date of Service: 12/22/13 8023 Status: Signed Commercial Reporter: Yaakov Bridges DO (Physician) [facility] Department of Emergency Medicine 2:48 PM 12/22/2013 History of Present Illness Patient Identification Norah Gr is a 58 y.o. male. Patient information was obtained from patient. History/Exam limitations: mental status. Patient presented to the Emergency Department by: [place] [id number] Primary care physician: JERRELL GUTIÉRREZ Chief Complaint Chief Complaint Patient presents with Chest Pain The patient presents with chest pain. Onset of symptoms was just [employer], with an ongoing cour se since that time. The patient describes these symptoms as stabbing pain, located inferior aspect of sternum, and rated as moderate. The patient reports nothing worsens symptoms, and nothing relieves symptoms. Patient states he was laying down and watching TV and fell asleep . He woke up and began having stabbing chest pain. He called for the nurse on duty at the [facility]. Patient also complains of burping with acid taste in back of throat. Pt den ies fever/chills, headache, facial pain, rhinorrhea, sore throat, dyspnea, N/V, appetite arina nges, bowel or bladder habit changes, skin rash, paresthesias, myalgias/arthralgias, gait ab normalities, lymphadenopathy, or new bruising. Patient has had similar symptoms previously. Patient has been recently evaluated by [facility] for this complaint. Patient has significant history for DM, HTN, hyperlipidemia, obesity, male gender, and age. Patient has had multiple cardiac evaluations including catheterization and echocardiogram. No known history of prior OH or pulmonary embolism Past Medical History Diagnosis Date Diabetes mellitus [...] - CHOLECYSTECTOMY; Surgeon: Jevon Vargas DO; Location: [facility] MAIN OR; Service: General; Laterality: N/A; Abdominal surgery Cholecystectomy Skin cancer excision 10/10/2012 Procedure: EXCISION - SKIN CANCER; Surgeon: Sy Fierro MD; Location: [facility] MAIN OR ; Service: Plastics; Laterality: Left; upper arm and upper back w/frozen section Esophagogastroduodenoscopy 03/03/2013 Procedure: ESOPHAGOGASTRODUODENOSCOPY; Surgeon: Howie Gibson MD; Location: [facility] ENDOSCOPY; S ervice: Gastroenterology; Laterality: N/A; Colonoscopy 03/04/2013 Procedure: COLONOSCOPY; Surgeon: Howie Gibson MD; Location: [facility] ENDOSCOPY; Service: Gastroe nterology; Laterality: N/A; Upper gastrointestinal endoscopy Skin biopsy Hernia repair 07/03/2013 Procedure: LAPAROSCOPIC - HERNIA - INCISIONAL; Surgeon: Jevon Vargas DO; Location: [facility] MAIN OR; Service: General; Laterality: N/A; Prior to Admission medications Medication Sig Start Date End Date Taking? Authorizing Provider Albuterol Sulfate (VENTOLIN HFA IN) Inhale 2 puffs into the lungs as needed. Historical Provider Ausht-L-Yyeiyckwyazri (BEANO) TABS Take 150 Units by mouth [...] 100 mg by mouth nightly. Historical Provider nwszowgvh-fpyumrrl-cualngbvd hydroxide-simethicone Take 40 mLs by mouth daily [...] of Children: 1 Years of Education: s. [employer] Occupational History disabled Social History Main Topics [...] Negative for: fever, chills Eyes: Negative for: decreased vision or irritated eyes Nose: Negative for: nosebleed Throat: Positive for burping with acid in back of throat Negative for: sore throat or dysphagia Cardiovascular/Respiratory: Positive for chest pain Negative for: shortness of breath, cough Gastrointestinal: Negative for: abdominal pain, nausea/vomiting, diarrhea, constipation, b lack or bloody stools Genitourinary: Negative for: dysuria, hematuria, or increased urinary frequency Musculoskeletal: Negative for: joint pain, myalgias, or restriction of range of motion Skin: Negative for: laceration or lesion Neuro and psych: Negative for: fainting, head injury, seizure, trouble walking Endocrine/Heme/Lymph: Negative for: swollen lymph nodes, easy bruising All other systems were reviewed and are subjectively reported as negative. Physical Exam BP 171/79 | Pulse 71 | Temp(Src) 97.6 F (36.4 C) (Oral) | Resp 16 | SpO2 94% Vitals: Elevated blood pressure with history of hypertension, otherwise normal. Pulse Oximetry Interpretation: Normal General: Alert, in no distress Eyes: Pupils equal and round, equally brisk responsiveness to light, non-icteric Extraocular motion intact ENT: Pharynx normal Moist mucous membranes, pink appearing Neck: Supple Chest: Reproducible tenderness to palpation along bilateral parasternal boarders CVS: Rate and rhythm normal 1/6 FLACA Respiratory: Breath sounds normal bilaterally, normal chest rise and fall, no obvious traum a Abdomen: Soft, non-distended, mild epigastric tenderness Bowel sounds present No guarding or rebound Back: Moves without difficulty No CVA tenderness Extremities: Moves all extremities Skin: Color normal Warm and dry No rash Neuro: No gross motor/sensory deficits noted Medical Decision Making and Emergency Department Course ED Department Course 2:48 PM. Patient presents with chest pain, but hasrecently had a heart catheter and CT ches t without any abnormalities identified. Patient's description of discomfort beginning upon awakening in a supine position, with the taste of acid in the back of his mouth as he burped , is highly suggestive of GERD. Patient's physical examination reveals reproducible tendern ess to palpation at the parasternal borders in the inferior aspect of the sternum. Patient likely has a combination of musculoskeletal etiology as well as GI etiology. Will provide G I cocktail to provide relief. I anticipate patient will not require admission. I have disc ussed the plan with the patient and he indicates understanding and agreement. The patient has hypertension on presentation to emergency department. Causes of hypertensio n could include acute pain, anxiety, primary hypertension, uncontrolled hypertension, hypert ensive urgency, or hypertensive emergency. There are no signs of end organ damage at this ti me (acute OH, aortic dissection, acute CVA, etc) and no indication for emergent reduction in the blood pressure in the emergency department. The patient will follow up with their prima physician for recheck of the blood pressure and outpatient management. 1504- Troponin resulted with 0.02 1532- Patient reevaluation. Patient states no improvement after GI cocktail administration. Will order CBC, CMP, and Chest XR to rule out infection, pneumonia, pneumothorax, Fracture, dislocation, or other. Will provide dose of Toradol to assist with chest wall discomfort i dentified on physical examination. 1648- Reviewed patient's lab and imaging results. Hyperglycemia and renal insufficiency not ed. Chest XR imaging reviewed, unremarkable for acute pathology. Vital signs at discharge are: Improved and patient is stable appearing. On reexamination patient now states that his chest discomfort is resolved. Pt with subjectively reported improvement in symptoms. Pt is non-toxic appearing. No acut e life or limb threatening condition identified. Labs, imaging, and impressions have been d iscussed. Patient advised " I have been alone for 3 years and have been beating off all the time lately, could that have caused this?" Discussed with patient activities that could cau se chest wall pain. Patient states he is feeling much better after Toradol. I specifically d iscussed with the patient/family/medical DPOA/advocate that the diagnosis reached after eval uation today may not represent the totality of the patients medical condition, but after lex luation the patient appears appropriate for continuing outpatient evaluation unless otherwis e specified. I also discussed with the patient/family/medical DPOA/advocate that a more pre cise diagnosis may be reached later as symptoms continue to present and evolve. Given the l imitations presented by an isolated evaluation of a previously unknown patient inherent to/i n an emergency department setting, I have counseled the patient to follow up with their prim ankur care provider (or emergent return to the emergency department if establishment with a pr ary care provider has not been conducted and condition worsens) to ensure ongoing evaluati on and treatment as indicated. Expectant outcome, as far as could be determined by this sin gular emergency department evaluation, was discussed. We have also discussed specific, as w ell as general, emergent RTED instructions. All questions addressed. Pt ready for discharg e. Records Reviewed Old medical records. Nursing notes. Dozens of Prior ED visits for similar and unrelated complaints. Patient is currently with the [facility]. Patient has heart catheterization performed on 10/2013 with resulted with HEMODYNAMICS : Pre ssures: Aortic pressure 142/80 with mean of 68. LV 160/3 with end diastolic of 18. Gradient: There was no gradient between the LV and aorta. CORONARY ANGIOGRAPHY The coronary system wa s right dominant. 1. The left main bifurcated into LAD and left circumflex. Left main was fr ee of disease. 2. Left anterior descending artery has minimal atherosclerosis and was a big vessel in diameter. 3. Left circumflex coronary artery and the marginal branches were free o f disease. 4. Right coronary artery has minimal atherosclerosis. LEFT VENTRICULOGRAM The lef t ventriculogram in FARFAN view showed normal chandrika left ventricle, ejection fraction of 60%. CONCLUSIONS AND RECOMMENDATIONS 1. Minimal atherosclerosis with big diameter vessels. 2 . Normal left ventricular systolic function. 3. Recommend evaluation for nonischemic chest p ain Patient had CT chest with IV contact with no acute finding and no evidence of PEs Medications administered during ED Evaluation and Treatment: Medications ketorolac (TORADOL) injection 30 mg (not administered) lidocaine (XYLOCAINE) 2 % 10 mL, aluminum-magnesium hydroxide-simethicone (MAALOX) 200-200- 20 MG/5ML 10 mL, TW-gnakrt-uoudbjas-scopolamine () 10 mL solution (30 mLs Oral Given 12/22/13 1502) Laboratory Evaluation Results Procedure Component Value Ref Range Date/Time POC clinitek 10 [[id number]] (Abnormal) Collected: 12/22/13 1650 Order Status: Completed Updated: 12/22/131653 Color, UA YELLOW Clarity, UA CLEAR Glucose, UA >999 (A) NEGATIVE mg/dL Bilirubin, UA NEGATIVE NEGATIVE Ketones, UA NEGATIVE NEGATIVE mg/dL Spec Grav, UA 1.015 1.001 - 1.035 Blood, UA NEGATIVE NEGATIVE pH, UA 6.0 4.6 - 8.0 Protein, UA NEGATIVE NEGATIVE mg/dL Urobilinogen, UA 0.2 <1.1 mg/dL Nitrite, UA NEGATIVE NEGATIVE WBC, UA NEGATIVE NEGATIVE Comprehensive metabolic panel [[id number]] (Abnormal) Collected: 12/22/13 143 Order Status: Completed Updated: 12/22/131638 Specimen Information: Blood SODIUM 142 135 - 143 mmol/L POTASSIUM 3.7 3.5 - 4.9 mmol/L CHLORIDE 105 99 - 109 mmol/L CO2 32 23 - 32 mmol/L ANION GAP AGAP 10 5 - 20 mmol/L GLUCOSE 215 (H) 65 - 99 mg/dL BUN 17 8 - 25 mg/dL CREATININE 1.36 (H) 0.70 - 1.30 mg/dL BUN/CREAT 13 CALCIUM 9.0 8.5 - 10.2 mg/dL TOTAL PROTEIN 7.9 6.3 - 8.2 g/dL Albumin 3.6 3.6 - 5.0 g/dL GLOBULIN 4.3 1.3 - 4.9 g/dL A/G 0.8 (L) 1.0 - 2.4 TBIL 0.3 0.1 - 1.5 mg/dL ALK PHOS 103 35 - 115 U/L AST 24 10 - 45 U/L ALT 23 10 - 65 U/L EGFR 57 (L) >60 mL/min/1.73m2 CBC with differential [[id number]] (Abnormal) Collected: 12/22/131430 Order Status: Completed Updated: 12/22/131620 Specimen Information: Blood WBC 10.4 3.8 - 11.0 K/uL RBC 5.20 4.20 - 5.70 M/uL HGB 13.7 13.2 - 17.0 g/dL HCT 41.6 39.0 - 50.0 % MCV 80.0 80.0 - 100.0 fl MCH 26.4 (L) 27.0 - 34.0 pg MCHC 32.9 32.0 - 35.5 g/dL RDW SD 42.0 37 - 53 fl PLT 318 150 - 400 K/uL MPV 8.0 fl DIFF TYPE AUTOMATED NEUTROPHILS 63.5 % LYMPHOCYTES 25.2 % MONOCYTES 8.2 % EOSINOPHILS 2.6 % BASOPHILS 0.5 % NEUTROPHILS ABS 6.6 1.9 - 7.4 K/uL LYMPHOCYTES ABS 2.6 1.0 - 3.9 K/uL MONOCYTES ABS 0.9 (H) 0 - 0.8 K/uL EOSINOPHILS ABS 0.3 0 - 0.5 K/uL BASOPHILS ABS 0.0 0 - 0.1 K/uL POC cardiac troponin [[id number]] Collected: 12/22/13 1450 Order Status: Completed Updated: 12/22/13 1504 POC CARDIAC TROPONIN 0.02 0.00 - 0.10 ng/mL Radiology and EKG Evaluation EKG Interpretation: Time: 1445 Rate: 74 Rhythm: Sinus El[place]: Normal RICHARD: Normal QRS: Normal, narrow complex ST waves: No ST-T wave elevations and depressions Other: PVC and some baseline artifact with limits interpretation Prior EKG for comparison: 12/15/2013 appears unchanged Acute ischemia suggested: none Independently reviewed and interpreted contemporaneously by myself. Yaakov Bridges D.O. Imaging Results XR chest PA and lateral (Preliminary result) Result time: 12/22/13 16:48:05 ED Interpretation Documented by Yaakov Bridges DO (12/22/13 16:48:05, [facility], Emergency Medicine) 2 view chest pa & lat. Prior films for comparison: 12/02/13. Poor inspiratory technique. Normal cardiac silhouette, no infiltrates, no pneumo/hemo-thorax, no pleural effusion, no elevated hemidiaphragms, normal mediastinum, normal great vessels. This ED initial read occurred during the ED course and management. The ED interpretation at the time the patient was being clinically managed, and prior to the radiology final read interpretation was as above. The imaging was independently viewed by and interpreted contemporaneously by me. Yaakov Bridges D.O. Labs and imaging reviewed. All pertinent positives noted and addressed. Results have been discussed with the patient. ED Diagnoses Final diagnoses Cardiac murmur Chest wall pain Diabetes type 1, uncontrolled Chronic renal insufficiency GERD (gastroesophageal reflux disease) Disposition: ED Disposition Discharge Condition at discharge: Improving condition Follow-up Information Follow up With Details Comments Contact Info Jerrell Gutiérrez DO Schedule an appointment as soon as possible for a visit in 1 day For continued evaluation and treatment [address] [facility] [id number] [facility] Emergency Department If symptoms worsen [address] [facility] [phone] Discharge Medications: New Prescriptions No new medications This document has been prepared with a voice recognition system. The possibility of "sound alike" practice office associate errors, addition and/or deletions may occur. If there is any question ashley deleon contact the author of the document. Procedures Additional Documentation Procedures Attending Note: Documentation assistance provided by Tram Slaughter (Scribe). Information recorded by the scribe has been reviewed and validated by . Troy laughlin with its contents. DO Yaakov Emanuel DO 12/29/13 1205 onversion Transactlenin sanchez, Provider Unknown - 12/22/2013 2:42 PM PST ED Notes by Mili Goode RN at 12/22/131441 Author: Mili Goode RN Service: (none) Author Type: Registered Nurse Filed: 12/22/131441 Date of Service: 12/22/131441 Status: Signed Commercial Reporter: Mili Goode RN (Registered Nurse) Bed: 1110 Expected date: Expected time: Means of arrival: [...] | | | | | [address] [place], | | | | | | [place] [address] | | | | | | [phone] | | | | | | | | +--------+ + + + + documented as of this encounter Procedures + +--------+ + + + | Procedure Name | Priori | Date/Time | Associated Diagnosis | Comments | | | ty | | | | + +--------+ + + + | XR CHEST 2 VIEWS | Routin | 12/22/2013 | | Results for this | | | e | 4:24 PM | | procedure are in the | | | | PST | | results section. | + +--------+ + + + | ECG 12 LEAD | Routin | 12/22/2013 | | Results for this | | | e | 2:45 PM | | procedure are in the | | | | PST | | results section. | + +--------+ + + + | EXTERNAL LAB: CBC | Routin | 12/22/2013 | | Results for this | | | e | 2:31 PM | | procedure are in the | | | | PST | | results section. | + +--------+ + + + | COMPREHENSIVE | Routin | 12/22/2013 | | Results for this | | METABOLIC PANEL | e | 2:31 PM | | procedure are in the | | | | PST | | results section. | + +--------+ + + + documented in this encounter Results XR Chest 2 Vws (12/22/2013 4:24 PM PST) + + | Specimen | + + | | + + + + + | Impressions | Performed At | + + + | 1. No acute findings. 2. Mild thoracic spondylosis. | | | | | + + + + + + | Narrative | Performed At | + + + | [facility] XR CHEST 2 VIEW FRONTAL AND LATERAL 12/22/2013 4:24 | | | PM History: 58 years. Male. Acute chest pain, presenting to | | | the emergency room. Technique: PA and lateral views of the chest. | | | Comparison: 12/02/13. Findings: The lung kong and pleural | | | spaces are clear. The cardiac volume is normal. The pulmonary | | | vasculature is unremarkable. Lungs are fully inflated. No hilar or | | | mediastinal abnormalities. The thoracic aorta is normal, without | | | dilatation or calcification. Mild osteophytes are noted throughout | | | the mid and lower thoracic spine. No vertebral body compression | | | fracture visualized. | | + + + + + | Procedure Note | + + | Richard, Rad Conversion - 09/21/2018 3:31 PM PDT [facility] CHEST 2 VIEW FRONTAL | | AND [id number]/22/2013 4:24 PM History: 58 years. Male. Acute chest pain, presenting | | to the emergency room. Technique: PA and lateral views of the chest.Comparison: | | 12/02/13. Findings: The lung kong and pleural spaces are clear. The cardiac volume is | | normal. The pulmonary vasculature is unremarkable. Lungs are fully inflated. No | | hilar or mediastinal abnormalities. The thoracic aorta is normal, without dilatation or | | calcification. Mild osteophytes are noted throughout the mid and lower thoracic spine. | | No vertebral body compression fracture visualized. IMPRESSION: 1. No acute findings.2. | | Mild thoracic spondylosis. Electronically signed by Dank Sharma MD on | | 12/22/2013 7:25 PM | |calcification. Mild osteophytes are noted throughout the mid and lower thoracic spine. No v ertebral body compression fracture visualized. | | | |IMPRESSION: | |1. No acute findings. | |2. Mild thoracic spondylosis. | | | | | | | + + ECG 12 lead (12/22/2013 2:45 PM PST) + + + + + + | Component | Value | Ref Range | Performed | Pathologist | | | | | At | Signature | + + + + + + | DIAGNOSIS: | Sinus rhythm with | | EXTERNAL | | | | occasional Premature | | LAB | | | | ventricular | | | | | | complexesOtherwise | | | | | | normal ECGWhen compared | | | | | | with ECG of 15-DEC-2013 | | | | | | 02:07,Premature | | | | | | ventricular complexes | | | | | | are now PresentThis ECG | | | | | | contains Unconfirmed | | | | | | Interpretation | | | | | | Statements. See ED | | | | | | Record for Physician | | | | | | Interpretation. | | | | | | Confirmed by MUSE READ | | | | | | ONLY, -COMPUTER ([id number]), | | | | | | desk editor Leanna Cheng | | | | | | ([phone]) on 12/22/2013 | | | | | | 4:18:07 PM | | | | + + + + + + + + | Specimen | + + | | + + + + + | Narrative | Performed At | + + + | [facility] | EXTERNAL LAB | + + + + +---------+ + + | Performing | Address | City/State/Zipcode | Phone Number | | Organization | | | | + +---------+ + + | EXTERNAL LAB | | | | + +---------+ + + External Lab: CBC (12/22/2013 2:31 PM PST) + + + + + + | Component | Value | Ref Range | Performed | Pathologist | | | | | At | Signature | + + + + + + | WBC | 10.4Comment: Testing | 3.8 - 11.0 K/uL | EXTERNAL | | | | performed at [facility];[address] | | LAB | | | | [address];[place] | | | | | | [address] | | | | + + + + + + | Non- | 5.20Comment: Testing | 4.20 - 5.70 | EXTERNAL | | | Red Blood | performed at [facility];[address] | M/uL | LAB | | | Cells | [address];[place] | | | | | Counted | [id number] | | | | + + + + + + | Hemoglobin | 13.7Comment: Testing | 13.2 - 17.0 | EXTERNAL | | | | performed at [facility];[address] | g/dL | LAB | | | | [address];[place] | | | | | | [address] | | | | + + + + + + | Hematocrit, | 41.6Comment: Testing | 39.0 - 50.0 % | EXTERNAL | | | POC | performed at [facility];[address] | | LAB | | | | [address];[place] | | | | | | [address] | | | | + + + + + + | MCV | 80.0Comment: Testing | 80.0 - 100.0 fl | EXTERNAL | | | | performed at [facility];[address] | | LAB | | | [address];[place] | | | | | | [address] | | | | + + + + + + | MCH | 26.4 (L)Comment: Testing | 27.0 - 34.0 pg | EXTERNAL | | | | performed at [facility];[address] | | LAB | | | [address];[place] | | | | | | [address] | | | | + + + + + + | MCHC | 32.9Comment: Testing | 32.0 - 35.5 | EXTERNAL | | | | performed at [facility];[address] | g/dL | LAB | | | | [address];[place] | | | | | | [address] | | | | + + + + + + | RDW-CV | 42.0Comment: Testing | 37 - 53 fl | EXTERNAL | | | | performed at [facility];[address] | | LAB | | | | [address];[place] | | | | | | [address] | | | | + + + + + + | Platelet | 318Comment: Testing | 150 - 400 K/uL | EXTERNAL | | | Count | performed at [facility];[address] | | LAB | | | Plasma | [address];[place] | | | | | | [address] | | | | + + + + + + | MPV | 8.0Comment: Testing | fl | EXTERNAL | | | | performed at [facility];[address] | | LAB | | | | [address] [address];[place] | | | | | | [address] | | | | + + + + + + | Differentia | AUTOMATEDComment: | | EXTERNAL | | | l Type | Testing performed at | | LAB | | | | [facility];[address];[place] [address] | | | | + + + + + + | % Segmented | 63.5Comment: Testing | % | EXTERNAL | | | | performed at [facility];[address] | | LAB | | | Neutrophils | [address];[place] | | | | | | [address] | | | | + + + + + + | % | 25.2Comment: Testing | % | EXTERNAL | | | Lymphocytes | performed at [facility];[address] | | LAB | | | | [address];[place] | | | | | | [address] | | | | + + + + + + | % Monocytes | 8.2Comment: Testing | % | EXTERNAL | | | | performed at [facility];[address] | | LAB | | | | [address];[place] | | | | | | [address] | | | | + + + + + + | % | 2.6Comment: Testing | % | EXTERNAL | | | Eosinophils | performed at [facility];[address] | | LAB | | | | [address];[place] | | | | | | [address] | | | | + + + + + + | % Basophils | 0.5Comment: Testing | % | EXTERNAL | | | | performed at [facility];[address] | | LAB | | | | [address];[place] | | | | | | [address] | | | | + + + + + + | Absolute | 6.6Comment: Testing | 1.9 - 7.4 K/uL | EXTERNAL | | | Segmented | performed at [facility];[address] | | LAB | | | Neutrophils | [address];[place] | | | | | | [address] | | | | + + + + + + | Absolute | 2.6Comment: Testing | 1.0 - 3.9 K/uL | EXTERNAL | | | Lymphocytes | performed at [facility];[address] | | LAB | | | | [address];[place] | | | | | | [address] | | | | + + + + + + | Absolute | 0.9 (H)Comment: Testing | 0 - 0.8 K/uL | EXTERNAL | | | Monocytes | performed at [facility];[address] | | LAB | | | | [address];[place] | | | | | | [address] | | | | + + + + + + | Absolute | 0.3Comment: Testing | 0 - 0.5 K/uL | EXTERNAL | | | Eosinophils | performed at [facility];[address] | | LAB | | | | [address];[place] | | | | | | [address] | | | | + + + + + + | Absolute | 0.0Comment: Testing | 0 - 0.1 K/uL | EXTERNAL | | | Basophils | performed at [facility];[address] | | LAB | | | | [address];[place], [place] | | | | | | [address] | | | | + + + [...] + +---------+ + + Comprehensive Metabolic Panel (12/22/2013 2:31 PM PST) + + + + + + | Component | Value | Ref Range | Performed | Pathologist | | | | | At | Signature | + + + + + + | Na | 142Comment: Testing | 135 - 143 | EXTERNAL | | | | performed at [facility];888 | mmol/L | LAB | | | | [address];[place] | | | | | | [address] | | | | + + + + + + | K | 3.7Comment: Testing | 3.5 - 4.9 | EXTERNAL | | | | performed at [facility];[address] | mmol/L | LAB | | | | [address];[place] | | | | | | [address] | | | | + + + + + + | Cl | 105Comment: Testing | 99 - 109 mmol/L | EXTERNAL | | | | performed at [facility];[address] | | LAB | | | | [address];[place] | | | | | | [address] | | | | + + + + + + | CO2 | 32Comment: Testing | 23 - 32 mmol/L | EXTERNAL | | | | performed at [facility];[address] | | LAB | | | | [address];[place] | | | | | | [address] | | | | + + + + + + | Anion Gap | 10Comment: Testing | 5 - 20 mmol/L | EXTERNAL | | | | performed at [facility];[address] | | LAB | | | | [address];[place] | | | | | | [address] | | | | + + + + + + | Glucose, | 215 (H)Comment: Testing | 65 - 99 mg/dL | EXTERNAL | | | Fasting | performed at [facility];[address] | | LAB | | | | [address];[place] | | | | | | [address] | | | | + + + + + + | BUN | 17Comment: Testing | 8 - 25 mg/dL | EXTERNAL | | | | performed at [facility];[address] | | LAB | | | | [address];[place] | | | | | | [address] | | | | + + + + + + | Creatinine | 1.36 (H)Comment: Testing | 0.70 - 1.30 | EXTERNAL | | | | performed at [facility];[address] | mg/dL | LAB | | | | [address];[place] | | | | | | [address] | | | | + + + + + + | BUN/Creatin | 13Comment: Testing | | EXTERNAL | | | ine Ratio | performed at [facility];[address] | | LAB | | | | [address];[place] | | | | | | [address] | | | | + + + + + + | Calcium | 9.0Comment: Testing | 8.5 - 10.2 | EXTERNAL | | | | performed at [facility];[address] | mg/dL | LAB | | | | [address];[place] | | | | | | [address] | | | | + + + + + + | Protein, | 7.9Comment: Testing | 6.3 - 8.2 g/dL | EXTERNAL | | | Total | performed at [facility];[address] | | LAB | | | | [address];[place] | | | | | | [address] | | | | + + + + + + | Albumin | 3.6Comment: Testing | 3.6 - 5.0 g/dL | EXTERNAL | | | | performed at [facility];[address] | | LAB | | | | [address];[place] | | | | | | [address] | | | | + + + + + + | Globulin | 4.3Comment: Testing | 1.3 - 4.9 g/dL | EXTERNAL | | | | performed at [facility];[address] | | LAB | | | | [address];[place] | | | | | | [address] | | | | + + + + + + | A/G Ratio | 0.8 (L)Comment: Testing | 1.0 - 2.4 | EXTERNAL | | | | performed at [facility];[address] | | LAB | | | | [address];[place] | | | | | | [address] | | | | + + + + + + | Bilirubin | 0.3Comment: Testing | 0.1 - 1.5 mg/dL | EXTERNAL | | | Total | performed at [facility];[address] | | LAB | | | | [address];[place] | | | | | | [address] | | | | + + + + + + | ALP, | 103Comment: Testing | 35 - 115 U/L | EXTERNAL | | | External | performed at [facility];[address] | | LAB | | | | [address];[place] | | | | | | [address] | | | | + + + + + + | AST | 24Comment: Testing | 10 - 45 U/L | EXTERNAL | | | | performed at [facility];[address] | | LAB | | | | [facility] | | | | | | [address] | | | | + + + + + + | ALT | 23Comment: Testing | 10 - 65 U/L | EXTERNAL | | | | performed at [facility];[address] | | LAB | | | | [address];[place] | | | | | | [address] | | | | + + + + + + | Estimated | 57 (L)Comment: GFR <60: | mL/min/1.73m2 | EXTERNAL [...] | | | | | | at [facility];[address];[place] [address] | | | | + + + [...] + | Diagnosis | + + | Cardiac murmur Undiagnosed cardiac murmurs | + + | Chest wall pain Painful respiration | + + | Diabetes type 1, uncontrolled (HCC) Type I (juvenile type) diabetes mellitus without | | mention of complication, uncontrolled | + + | Chronic renal insufficiency Chronic kidney disease, unspecified | + + | GERD (gastroesophageal reflux disease) Esophageal reflux | + + documented in this encounter
--- OUTSIDE RECORDS SUMMARY | ~2019-10-12 | XMS | Encounter Summary ---
Demographics + + + | Address | [address] | | | [place] [address] | + + + | Home Phone | | + + + | Preferred Language | Unknown | + + + | Marital Status | | + + + | Zoroastrianism Affiliation | 1027 | + + + [...] + | Sammi Kohler | ECON | [place] [address] | | + + + + + Care Team Providers + +------+ + | Care Bid Writer Name | Role | Phone | + +------+ + PCP | Unavailable | + +------+ + Encounter Details +--------+ + + + + | Date | Type | Department | Care Team | Description | +--------+ + + + + | 11/29/ | Emergency | [facility] | Jose Flor, | Chest pain; | | 2013 | | [facility] | MD Darrick MAHER | Hyperglycemia | | | | EMERGENCY CENTER | [place] [address] | | | | | [address] [facility] [facility] [facility] | [phone] | | | | | [place], [place] | | | | | | [address] | | | | | | [phone] | | | +--------+ + + + [...] Progress Notes Conversion Transaction, Provider Unknown - 11/29/2013 12:26 PM PDTFormatting of this note m ight be different from the original. Case Management by QUINN Richardson at 11/29/13 5648 Author: QUINN Richardson Service: (none) Author Type: Mine Wedge Sawyer Filed: 11/29/13 9769 Date of Service: 11/29/131225 Status: Signed Annealer: QUINN Richardson (Mine Wedge Sawyer) ED CARE GUIDELINES FROM [facility]: E.D. VISIT COUNT (1 YR.) IS 34 Care Recommendation: Norah has a printed Crisis Plan at the Assisted Living Facility that he is to follow before coming to the ED for non life-threatening issues. Please discuss with Norah when he present s to the ED The following guidelines were formulated by the ED Care Guidelines Committee of the [facility] Program on May 21, 2013. No controlled substances should be administered in the ED or prescribed from the ED for sub jective pain. Past Medical & Surgical History: Primary Care Provider (PCP) is Dr. Gutiérrez at . Notify PCP if giving any a dditional narcotics for objective findings. PCP supports enrollment in the [facility] Care Program. Medical History: 1. Diabetes-He is on a sliding scale after meals, routine insulin before meals and takes La ntus at night. A1C April, = 7.9%. He was referred to an chief juvenile probation officer in February, 4. 2. COPD- He take [...] the GE junction (requiring managem ent in [place] at ), rectal ulcer and internal hemorrhoids. 9. Hernia- He has been referred to Dr. Vargas. Problem List: He needs to make regular visits to see his PCP in light of his chronic conditions. He estab lished in February, but he never returned as requested. This patient is developmentally delayed and has multiple chronic conditions and providers. He would benefit from having a Winemaker assist him in coordinating his care. History of Behavioral Health Conditions: He has depression and anxiety- This is managed by his PCP. He takes Paxil and abilify. He has been referred to [facility] in February. According to [facility], he never establish ed care. Please follow-up with him and assist him in making another appointment to establish care. Pain/Opioid Agreement: Norah has an order at the Assisted Living Facility for hydrocodone as needed. He does not h ave a diagnosis of chronic pain. Please see [facility] [employer]IST for prescribing history. Social History or Identified Risk: - Fall Risk - Non adherence - Transportation Issues Social History: Norah lives at [facility] . He may require another level of care given the number of ED visits at enrollment (22 in the last year)-please contact his [facility] Ca se Die Maker Trim (Fermin Preston) to discuss. Norah is developmentally delayed- Patient may benefit from having someone with him at his d lylaor's appointments. He has applied for Dial-A-Ride services (April,) Applied for a Health Home for this client through [facility]- please review Provider One to determ ine if one has been assigned. Additional Information: This patient is case managed by the [facility]. Please contact the rat breeder at your hospital for any immediate or [...] ED Notes Conversion Transaction, Provider Unknown - 11/29/2013 12:59 PM PDTFormatting of this note m ight be different from the original. ED Notes by Leslie Verdin RN at 11/29/13 5689 Author: Leslie Verdin RN Service: (none) Author Type: Registered Nurse Filed: 11/29/13 1300 Date of Service: 11/29/13 8807 Status: Signed Annealer: Leslie Verdin, RN (Registered Nurse) Called Daljit Ex mother in law to come picker operator pt in lobby, verbalized understanding. Leslie Verdin RN 11/29/13 1300 [email or web address] , Jose Pryor MD - 11/29/2013 11:55 AM PDTFormatting of this note might be different from the o riginal. ED Provider Notes by Jose Flor MD at 11/29/13 8730 Author: Jose Flor MD Service: (none) Author Type: Physician Filed: 11/29/13 1460 Date of Service: 11/29/13 1153 Status: Signed Annealer: Jose Flor MD (Physician) [facility] Department of Emergency Medicine History of Present Illness Patient Identification Norah Gr is a 57 y.o. male. Patient information was obtained from patient and EMS personnel. History/Exam limitations: none. Patient presented to the Emergency Department by: [facility] 1721 Chief Complaint Chief Complaint Patient presents with Chest Pain seen previously for CP with anxiety Shortness of Breath The patient complains of chest pain. The discomfort is described as pain, located central c hest. Onset of symptoms was today while with son, was not at his usual home, with a constan t course since that time. The chest pain occured while the patient was at rest. The patient also complains of the following symptoms: dyspnea. Patient's cardiac risk factors include: age. Care prior to arrival consisted of his regular medications, recently started new BP p atch.. PCP is: JERRELL GUTIÉRREZ Past Medical History Diagnosis Date [...] Surgeon: Jevon Vargas DO; Location: [facility] MAIN OR; Service: General; Laterality: N/A; Abdominal surgery Cholecystectomy Skin cancer excision 10/10/2012 Procedure: EXCISION - SKIN CANCER; Surgeon: Sy Fierro MD; Location: [facility] MAIN OR ; Service: Plastics; Laterality: Left; upper arm and upper back w/frozen section Esophagogastroduodenoscopy 03/03/2013 Procedure: ESOPHAGOGASTRODUODENOSCOPY; Surgeon: Howie Gibson MD; Location: [facility] ENDOSCOPY; S ervice: Gastroenterology; Laterality: N/A; Colonoscopy 03/04/2013 Procedure: COLONOSCOPY; Surgeon: Howie Gibson MD; Location: [facility] ENDOSCOPY; Service: Gastroe nterology; Laterality: N/A; Upper gastrointestinal endoscopy Skin biopsy Hernia repair 07/03/2013 Procedure: LAPAROSCOPIC - HERNIA - INCISIONAL; Surgeon: Jevon Vargas DO; Location: [facility] MAIN OR; Service: General; Laterality: [...] into the skin nightly. H istorical Provider hdrftiwhc-dpeavvuk-fdlfmyhlk hydroxide-simethicone Take 40 mLs by mouth daily [...] Sensation of Spinning or Whirling Historical Provider meclizine (ANTIVERT) 25 MG tablet [...] for: mouth sores Cardiovascular/Respiratory: Negative for: cough Gastrointestinal: Negative for: abdominal pain, vomiting, diarrhea, black or bloody stools Genitourinary: Negative for: dysuria, hematuria, urinary problems Musculoskeletal: Negative for: myalgias and arthralgias Skin: Negative for: laceration or lesion Neuro and psych: Negative for: fainting, head injury, seizure Endocrine/Heme/Lymph: Negative for: swollen lymph nodes, easy bruising All systems reviewed and otherwise negative Physical Exam BP 201/100 | Pulse 87 | Temp(Src) 98 F (36.7 C) (Oral) | Resp 16 | SpO2 96% Vital signs have been reviewed and significant for hypertension Pulse Oximetry interpretation: Normal on room air General: Alert, no active distress Eyes: Normal inspection, pupils equal and round, non-icteric ENT: Ears normal Nose normal Pharynx normal Neck: Normal inspection Supple No lymphadenopathy Cardiovascular: Regular rate and rhythm, no murmurs Respiratory: Lungs clear, no wheezing, no respiratory distress Abdomen: Soft, non-tender, non-distended No guarding or rebound Genitourinary: Deferred Rectal exam: Deferred Back: Normal inspection Skin: Color normal Warm and dry No rash Neuro: No motor deficit No sensory deficit Medical Decision Making and Emergency Department Course Chest pain General The patient presents with a chief complaint of chest discomfort. The list of possible paris gent diagnoses that the patient requires an evaluation for includes (but is not limited to) hypercoagulable state, anemia, dehydration, renal failure, electrolyte changes, unstable ang ayaz, aortic dissection, acute myocardial ischemia, arrhythmia, congestive heart failure, per icarditis, effusions, pulmonary edema and anxiety with hyperventilation. I feel that labora tory testing and further diagnostic testing is necessary to ensure that there is no acute em ergent cause of the symptoms. I have ordered a 12 lead EKG, CXR, CBC with diff, CMP, INR, C K, CKMB, and troponin. Patient will be placed on the cardiac tech to ensure no life thre atening arrhythmia develops and will be given supplemental oxygen via nasal cannula. ED Department Course I discussed with the patient the results of his tests in the emergency department and we kelley ve discussed possible treatment options. The workup at this time does not suggest acute AK, Acute Coronary Syndrome, Aortic dissection, or other emergent life threatening conditions. Options for further treatment include admission to the hospital for observation and further testing, including stress test if indicated. The patient would rather go home and follow u p with their doctor for further outpatient testing, is aware that there are always risks ass ociated with the diagnosis of chest pain, including risks of AK, , or disability. The patient is deemed to be low risk at this time, and agrees to return if pains worsen or if an y further concerning symptoms arise. Records Reviewed Old medical records. Laboratory Evaluation Labs Reviewed [facility] CARD PANEL W/O TRP (ED ONLY) - Abnormal; Notable for the following: MCH 26.4 (*) MONOCYTES ABS 0.9 (*) GLUCOSE 284 (*) A/G 0.9 (*) MMB 4.7 (*) All other components within normal limits POC CARDIAC TROPONIN Results Procedure Component Value Units Date/Time Cardiac Panel [[id number]] (Abnormal) Collected: 11/29/13 1155 WBC 10.2 K/uL Updated: 11/29/13 1226 RBC 5.30 M/uL HGB 14.0 g/dL HCT 42.5 % MCV 80.1 fl MCH 26.4 (L) pg MCHC 32.9 g/dL RDW SD 41.1 fl PLT 277 K/uL MPV 7.5 fl DIFF TYPE AUTOMATED NEUTROPHILS 57.7 % LYMPHOCYTES 29.8 % MONOCYTES 8.5 % EOSINOPHILS 3.1 % BASOPHILS 0.9 % NEUTROPHILS ABS 5.9 K/uL LYMPHOCYTES ABS 3.0 K/uL MONOCYTES ABS 0.9 (H) K/uL EOSINOPHILS ABS 0.3 K/uL BASOPHILS ABS 0.1 K/uL SODIUM 137 mmol/L POTASSIUM 3.6 mmol/L CHLORIDE 100 mmol/L CO2 27 mmol/L ANION GAP AGAP 13 mmol/L GLUCOSE 284 (H) mg/dL BUN 16 mg/dL CREATININE 1.22 mg/dL BUN/CREAT 13 CALCIUM 8.9 mg/dL TOTAL PROTEIN 7.5 g/dL Albumin 3.6 g/dL GLOBULIN 4.0 g/dL A/G 0.9 (L) TBIL 0.4 mg/dL ALK PHOS 95 U/L AST 30 U/L ALT 28 U/L EGFR >60 mL/min/1.73m2 CPK 184 U/L INR 1.0 APTT 24 seconds MMB 4.7 (H) ng/mL CK-MB Index 2.6 Available labs reviewed and interpreted by me. Radiology Evaluation Imaging Results XR chest AP portable (Final result) Result time: 11/29/13 12:35:37 Final result by Rad Results In Richard (11/29/13 12:35:37) Impression: 1. No acute cardiopulmonary process. Narrative: NORAH GR 1955 57 years XR CHEST 1 VIEW 11/29/2013 12:12 PM INDICATION: Chest pain COMPARISON: 11/25/13 TECHNIQUE: Chest 1 view, AP view of the chest FINDINGS: The cardiomediastinal contours are normal. There is no pneumothorax or effusion . The lungs are clear without focal consolidation. Osseous structures are grossly normal. Available radiology studies reviewed and interpreted contemporaneously by me. EKG Interpretation Rhythm: Sinus Ventricular Rate: 86 [place] Interval: Normal ST Segments: Normal Significant Q-waves: None Blocks: None ED Diagnoses Final diagnoses Chest pain Hyperglycemia Disposition: ED Disposition Discharge Condition at discharge: Stable Follow-up Information Follow up With Details Comments Contact Info Jerrell Gutiérrez, [address] [facility] [address] Discharge Medications: Discharge Medication List as of 11/29/2013 12:55 PM Procedures Additional Documentation Procedures Jose Flor MD 11/29/13 1318 onversion Transacti on, Provider Unknown - 11/29/2013 11:52 AM PDTFormatting of this note might be different fro m the original. ED Notes by Michelle Palomares RN at 11/29/131151 Author: Michelle Palomares RN Service: (none) Author Type: Registered Nurse Filed: 11/29/131152 Date of Service: 11/29/131151 Status: Signed Annealer: Michelle Palomares RN (Registered Nurse) Pt placed on cardiac monitoring, tele notified Michelle Palomares RN 11/29/131152 onver ivana Transaction, Provider Unknown - 11/29/2013 11:47 AM PDT ED Notes by Mili Goode RN at 11/29/13 114 Author: Mili Goode RN Service: (none) Author Type: Registered Nurse Filed: 11/29/131146 Date of Service: 11/29/131146 Status: Signed Annealer: Mili Goode RN (Registered Nurse) Bed: 1106 Expected date: Expected time: Means of arrival: [...] [place], | | | | | | [place] [address] | | | | | | [phone] | | | | | | | | +--------+ + + + + documented as of this encounter Procedures + +--------+ + + + | Procedure Name | Priori | Date/Time | Associated Diagnosis | Comments | | | ty | | | | + +--------+ + + + | XR CHEST 1 VIEW | Routin | 11/29/2013 | | Results for this | | | e | 12:12 PM | | procedure are in the | | | | PDT | | results section. | + +--------+ + + + | HISTORICAL LAB PANEL | Routin | 11/29/2013 | | Results for this | | RESULT | e | 11:55 AM | | procedure are in the | | | | PDT | | results section. | + +--------+ + + + | ECG 12 LEAD | Routin | 11/29/2013 | | Results for this | | | e | 11:49 AM | | procedure are in the | | | | PDT | | results section. | + +--------+ + + + documented in this encounter Results XR Chest 1 Vw (11/29/2013 12:12 PM PDT) + + | Specimen | + + | | + + + + + | Impressions | Performed At | + + + | 1. No acute cardiopulmonary process. | | + + + + + + | Narrative | Performed At | + + + | NORAH GR 1955 57 years XR CHEST 1 VIEW 11/29/2013 | | | 12:12 PM INDICATION: Chest pain COMPARISON: 11/25/13 | | | TECHNIQUE: Chest 1 view, AP view of the chest FINDINGS: The | | | cardiomediastinal contours are normal. There is no pneumothorax or | | | effusion. The lungs are clear without focal consolidation. Osseous | | | structures are grossly normal. | | + + + + + | Procedure Note | + + | Richard, Rad Conversion - 09/21/2018 3:31 PM SHALONDA GR yearsXR CHEST | | 1 VIEW11/29/2013 12:12 PM INDICATION: Chest pain COMPARISON: 11/25/13 TECHNIQUE: Chest | | 1 view, AP view of the chest FINDINGS: The cardiomediastinal contours are normal. | | There is no pneumothorax or effusion. The lungs are clear without focal consolidation. | | Osseous structures are grossly normal. IMPRESSION: 1. No acute cardiopulmonary | | process. | |INDICATION: Chest pain | | | |COMPARISON: 11/25/13 | | | |TECHNIQUE: Chest 1 view, AP view of the chest | | | |FINDINGS: The cardiomediastinal contours are normal. There is no pneumothorax or effusion . The lungs are clear without focal consolidation. Osseous structures are grossly normal. | | | |IMPRESSION: | |1. No acute cardiopulmonary process. | | | | | + + HISTORICAL LAB PANEL RESULT (11/29/2013 11:55 AM PDT) + + + + + -+ | Component | Value | Ref Range | Performed | Pathologist | | | | | At | Signature | + + + + + -+ | WBC | 10.2Comment: Testing | 3.8 - 11.0 K/uL | EXTERNAL | | | | performed at [facility];[address] | | LAB | | | | [address];[place] | | | | | | [address] | | | | + + + + + -+ | Non- | 5.30Comment: Testing | 4.20 - 5.70 | EXTERNAL | | | Red Blood | performed at [facility];[address] | M/uL | LAB | | | Cells | [address];[place] | | | | | Counted | [address] | | | | + + + + + -+ | Hemoglobin | 14.0Comment: Testing | 13.2 - 17.0 | EXTERNAL | | | | performed at [facility];[address] | g/dL | LAB | | | | [address];[place] | | | | | | [address] | | | | + + + + + -+ | Hematocrit, | 42.5Comment: Testing | 39.0 - 50.0 % | EXTERNAL | | | POC | performed at [facility];[address] | | LAB | | | | [address];[place] | | | | | | [address] | | | | + + + + + -+ | MCV | 80.1Comment: Testing | 80.0 - 100.0 fl | EXTERNAL | | | | performed at [facility];[address] | | LAB | | | | [address] | | | | | | [address] | | | | + + + + + -+ | MCH | 26.4 (L)Comment: Testing | 27.0 - 34.0 pg | EXTERNAL | | | | performed at [facility];[address] | | LAB | | | | [address] | | | | | | [address] | | | | + + + + + -+ | MCHC | 32.9Comment: Testing | 32.0 - 35.5 | EXTERNAL | | | | performed at [facility];[address] | g/dL | LAB | | | | [address] | | | | | | [address] | | | | + + + + + -+ | RDW-CV | 41.1Comment: Testing | 37 - 53 fl | EXTERNAL | | | | performed at [facility];[address] | | LAB | | | | [address] | | | | | | [address] | | | | + + + + + -+ | Platelet | 277Comment: Testing | 150 - 400 K/uL | EXTERNAL | | | Count | performed at [facility];[address] | | LAB | | | Plasma | [address] | | | | | | [address] | | | | + + + + + -+ | MPV | 7.5Comment: Testing | fl | EXTERNAL | | | | performed at [facility];[address] | | LAB | | | | [address] | | | | | | [address] | | | | + + + + + -+ | Differentia | AUTOMATEDComment: | | EXTERNAL | | | l Type | Testing performed at | | LAB | | | | [facility];[address];[place] [address] | | | | + + + + + -+ | % Segmented | 57.7Comment: Testing | % | EXTERNAL | | | | performed at [facility];[address] | | LAB | | | Neutrophils | [address] | | | | | | [address] | | | | + + + + + -+ | % | 29.8Comment: Testing | % | EXTERNAL | | | Lymphocytes | performed at [facility];[address] | | LAB | | | | [address] | | | | | | [address] | | | | + + + + + -+ | % Monocytes | 8.5Comment: Testing | % | EXTERNAL | | | | performed at [facility];[address] | | LAB | | | | [address] | | | | | | [address] | | | | + + + + + -+ | % | 3.1Comment: Testing | % | EXTERNAL | | | Eosinophils | performed at [facility];[address] | | LAB | | | | [address] | | | | | | [address] | | | | + + + + + -+ | % Basophils | 0.9Comment: Testing | % | EXTERNAL | | | | performed at [facility];[address] | | LAB | | | | [address];[place] | | | | | | [address] | | | | + + + + + -+ | Absolute | 5.9Comment: Testing | 1.9 - 7.4 K/uL | EXTERNAL | | | Segmented | performed at [facility];[address] | | LAB | | | Neutrophils | [address];[place] | | | | | | [address] | | | | + + + + + -+ | Absolute | 3.0Comment: Testing | 1.0 - 3.9 K/uL | EXTERNAL | | | Lymphocytes | performed at [facility];[address] | | LAB | | | | [address];[place] | | | | | | [address] | | | | + + + + + -+ | Absolute | 0.9 (H)Comment: Testing | 0 - 0.8 K/uL | EXTERNAL | | | Monocytes | performed at [facility];[address] | | LAB | | | | [address];[place] | | | | | | [address] | | | | + + + + + -+ | Absolute | 0.3Comment: Testing | 0 - 0.5 K/uL | EXTERNAL | | | Eosinophils | performed at [facility];[address] | | LAB | | | | [address] | | | | | | [address] | | | | + + + + + -+ | Absolute | 0.1Comment: Testing | 0 - 0.1 K/uL | EXTERNAL | | | Basophils | performed at [facility];[address] | | LAB | | | | [address] | | | | | | [address] | | | | + + + + + -+ | Na | 137Comment: Testing | 135 - 143 | EXTERNAL | | | | performed at [facility];[address] | mmol/L | LAB | | | | [address] | | | | | | [address] | | | | + + + + + -+ | K | 3.6Comment: Testing | 3.5 - 4.9 | EXTERNAL | | | | performed at [facility];[address] | mmol/L | LAB | | | | [address] | | | | | | [address] | | | | + + + + + -+ | Cl | 100Comment: Testing | 99 - 109 mmol/L | EXTERNAL | | | | performed at [facility];[address] | | LAB | | | | [address] | | | | | | [address] | | | | + + + + + -+ | CO2 | 27Comment: Testing | 23 - 32 mmol/L | EXTERNAL | | | | performed at [facility];[address] | | LAB | | | | [address] | | | | | | [address] | | | | + + + + + -+ | Anion Gap | 13Comment: Testing | 5 - 20 mmol/L | EXTERNAL | | | | performed at [facility];[address] | | LAB | | | | [address] | | | | | | [address] | | | | + + + + + -+ | Glucose, | 284 (H)Comment: Testing | 65 - 99 mg/dL | EXTERNAL | | | Fasting | performed at [facility];[address] | | LAB | | | | [address] | | | | | | [address] | | | | + + + + + -+ | BUN | 16Comment: Testing | 8 - 25 mg/dL | EXTERNAL | | | | performed at [facility];[address] | | LAB | | | | [address] | | | | | | [address] | | | | + + + + + -+ | Creatinine | 1.22Comment: Testing | 0.70 - 1.30 | EXTERNAL | | | | performed at [facility];[address] | mg/dL | LAB | | | | [address] | | | | | | [address] | | | | + + + + + -+ | BUN/Creatin | 13Comment: Testing | | EXTERNAL | | | ine Ratio | performed at [facility];[address] | | LAB | | | | [address];[place] | | | | | | [address] | | | | + + + + + -+ | Calcium | 8.9Comment: Testing | 8.5 - 10.2 | EXTERNAL | | | | performed at [facility];[address] | mg/dL | LAB | | | | [address] | | | | | | [address] | | | | + + + + + -+ | Protein, | 7.5Comment: Testing | 6.3 - 8.2 g/dL | EXTERNAL | | | Total | performed at [facility];[address] | | LAB | | | | [address] | | | | | | [address] | | | | + + + + + -+ | Albumin | 3.6Comment: Testing | 3.6 - 5.0 g/dL | EXTERNAL | | | | performed at [facility];[address] | | LAB | | | | [address] | | | | | | [address] | | | | + + + + + -+ | Globulin | 4.0Comment: Testing | 1.3 - 4.9 g/dL | EXTERNAL | | | | performed at [facility];[address] | | LAB | | | | [address] | | | | | | [address] | | | | + + + + + -+ | A/G Ratio | 0.9 (L)Comment: Testing | 1.0 - 2.4 | EXTERNAL | | | | performed at [facility];[address] | | LAB | | | | [address] | | | | | | [address] | | | | + + + + + -+ | Bilirubin | 0.4Comment: Testing | 0.1 - 1.5 mg/dL | EXTERNAL | | | Total | performed at [facility];[address] | | LAB | | | | [address];[place] | | | | | | [address] | | | | + + + + + -+ | ALP, | 95Comment: Testing | 35 - 115 U/L | EXTERNAL | | | External | performed at [facility];[address] | | LAB | | | | [address];[place] | | | | | | [address] | | | | + + + + + -+ | AST | 30Comment: Testing | 10 - 45 U/L | EXTERNAL | | | | performed at [facility];[address] | | LAB | | | | [address];[place] | | | | | | [address] | | | | + + + + + -+ | ALT | 28Comment: Testing | 10 - 65 U/L | EXTERNAL | | | | performed at [facility];[address] | | LAB | | | | [facility];[place] | | | | | | [address] | | | | + + + [...] | | | | | | at [facility] [place] [facility];[address] [facility] | | | | | | Blvd;[place] [address] | | | | + + + + + -+ | CK, Total | 184Comment: Testing | 55 - 400 U/L | EXTERNAL | | | | performed at [facility];[address] | | LAB | | | | [facility];[place] | | | | | | [address] | | | | + + + [...] | | | | | performed at [facility];[address] | | | | | | [address];[place] | | | | | | [address] | | | | + + + + + -+ | aPTT, | 24Comment: Testing | 23 - 32 seconds | EXTERNAL | | | Patient | performed at [facility];[address] | | LAB | | | | [address];[place] | | | | | | [address] | | | | + + + + + -+ | CK-MB | 4.7 (H)Comment: Testing | 0.5 - 3.6 ng/mL | EXTERNAL | | | | performed at [facility];[address] | | LAB | | | | [address];[place] | | | | | | [address] | | | | + + + [...] + +---------+ + + ECG 12 lead (11/29/2013 11:49 AM PDT) + + + + + [...] of | | | | | | 25-NOV-2013 | | | | | | 15:00,Inverted T waves | | | | | | have replaced | | | | | | nonspecific T wave | | | | | | abnormality in Inferior | | | | | [...] (500), | | | | | | field map editor SANYA DUPONT (8) | | | | | | on 11/29/2013 12:41:21 | | | | | | PM | | | | + + + + + + + + | Specimen | + + | | + + + + + | Narrative | Performed At | + + + | Historically converted procedure from [facility] Epic environment | EXTERNAL LAB | + + + + +---------+ + + | Performing | Address | City/State/Zipcode | Phone Number | | Organization | | | | + +---------+ + + | EXTERNAL LAB | | | | + +---------+ + + documented in this encounter Visit Diagnoses + + | Diagnosis | + + | Chest pain Chest pain, unspecified | + + | Hyperglycemia Other abnormal glucose | + + documented in this encounter"
--- OUTSIDE RECORDS SUMMARY | ~2019-10-12 | XMS | Encounter Summary ---
Demographics + + + | Address | [address] | | | [place] [address] | + + + | Home Phone | | + + + | Preferred Language | Unknown | + + + | Marital Status | | + + + | Nondenominational Affiliation | 1027 | + + + | Race | White | + + + | Ethnic Group | Not or | + + + Author + + + | Author | [facility] | | | and [place] | + + + | Organization | [facility] | | | and [place] | + + + | Address | Unknown | + + + | Phone | Unavailable | + + + Support + + + + + | Name | Relationship | Address | Phone | + + + + + | Sammi Kohler | ECON | [place] [address] | | + + + + + Care Team Providers + +------+ + | Care Geothermal Hvac Technician Name | Role | Phone | + +------+ + PCP | Unavailable | + +------+ + Encounter Details +--------+ + + + + | Date | Type | Department | Care Team | Description | +--------+ + + + + | 05/29/ | Hospital | [facility] | Conversion | | | 2015 | Encounter | [facility] | Transaction, | | | | | [address] | Provider Unknown | | | | | [place] | [phone] | | | | | [address] | | | | | | [phone] | | | +--------+ + + + [...] | | | | | | [place] [address] | | | | | | [phone] | | | | | | | | +--------+ + + + + documented as of this encounter Visit Diagnoses Not on filedocumented in this encounter"
--- OUTSIDE RECORDS SUMMARY | ~2019-10-12 | XMS | Encounter Summary ---
Demographics + + + | Address | [address] | | | [place] [address] | + + + | Home Phone | | + + + | Preferred Language | Unknown | + + + | Marital Status | | + + + | Alevism Affiliation | 1027 | + + + | Race | White | + + + | Ethnic Group | Not or | + + + Author + + + | Author | [facility] | | | and [place] | + + + | Organization | [facility] | | | and [place] | + + + | Address | Unknown | + + + | Phone | Unavailable | + + + Support + + + + + | Name | Relationship | Address | Phone | + + + + + | Sammi Kohler | ECON | [place] [address] | | + + + + + Care Team Providers + +------+ + | Care Lead Painter Name | Role | Phone | + +------+ + PCP | Unavailable | + +------+ + Encounter Details +--------+ + + + + | Date | Type | Department | Care Team | Description | +--------+ + + + + | 03/07/ | Emergency | [facility] | Reynaldo Prather | Fall, initial | | 2015 | | [facility] | DO [address] | encounter; Head | | | | [facility] | JUSTINE BLJASMINE | injury, initial | | | | [address] | [place], [place] | encounter; | | | | [facility] [place] | [address] | Laceration of head, | | | | [address] | [phone] | initial encounter; | | | | [phone] | | Headache(784.0) | +--------+ + + + + Social [...] ED Notes Conversion Transaction, Provider Unknown - 03/07/2014 10:12 PM PSTFormatting of this note m ight be different from the original. ED Notes by Mel Gasca RN at 03/07/142211 Author: Mel Gasca RN Service: (none) Author Type: Registered Nurse Filed: 03/07/142212 Date of Service: 03/07/142211 Status: Signed Vp Informatics: Mel Gasca RN (Registered Nurse) [facility] called for a ride home for the PT. Will be here within the hour. Mel Gasca RN 03/07/142212 onver ivana Transaction, Provider Unknown - 03/07/2014 9:39 PM PST ED Notes by Jane Lagos at 03/07/142138 Author: Jane Lagos Service: (none) Author Type: Technologist Filed: 03/07/142138 Date of Service: 03/07/142138 Status: Signed Vp Informatics: Jane aLgos (Technologist) Pt back to room from CT scan via w/c. Jane Lagos 03/07/142138 atti Yo hewitt PA-C - 03/07/2014 9:31 PM PST ED Provider Notes by Yo Nunez PA-C at 03/07/142130 Author: Yo Nunez PA-C Service: (none) Author Type: Physician - Cer tified Filed: 03/08/1419 Date of Service: 03/07/142130 Status: Attested Vp Informatics: Yo Nunez PA-C (Physician Paint Brush Maker - [place]) Cosigner: Reynaldo díaz DO at 03/08/14110 Procedure Orders: 1. Laceration repair [[id number]] ordered by Yo Nunez PA-C at 03/07/142218 2. Laceration repair [[id number]] ordered by Yo Nunez PA-C at 03/07/142214 Attestation signed by Reynaldo Prather DO at 03/08/14110 I have reviewed the patient's chart including the history of present illness, ROS, physical exam, and assessment and treatment plan. I personally supervised the mid-level provider du ring the care of this patient. Reynaldo Prather DO Lac Repair Date/Time: 03/07/2014 10:15 PM Performed by: YO NUNEZ Authorized by: YO NUNEZ Consent: Verbal consent obtained. Risks and benefits: risks, benefits and alternatives were discussed Consent given by: patient Patient understanding: patient states understanding of the procedure being performed Patient consent: the patient's understanding of the procedure matches consent given Patient identity confirmed: verbally with patient and arm band Body area: head/neck Location details: forehead Laceration length: 2 cm Foreign bodies: no foreign bodies Tendon involvement: none Nerve involvement: none Vascular damage: no Anesthesia: local infiltration Local anesthetic: lidocaine 1% with epinephrine Anesthetic total: 2 ml Preparation: Patient was prepped and draped in the usual sterile fashion. Irrigation solution: saline Irrigation method: jet lavage Amount of cleaning: standard Debridement: none Degree of undermining: none Skin closure: 6-0 Prolene Number of sutures: 5 Technique: simple Approximation: close Approximation difficulty: simple Dressing: antibiotic ointment and 4x4 sterile gauze Patient tolerance: Patient tolerated the procedure well with no immediate complications Lac Repair Date/Time: 03/07/2014 10:19 PM Performed by: YO NUNEZ Authorized by: YO NUNEZ Consent: Verbal consent obtained. Risks and benefits: risks, benefits and alternatives were discussed Consent given by: patient Patient understanding: patient states understanding of the procedure being performed Patient consent: the patient's understanding of the procedure matches consent given Patient identity confirmed: verbally with patient and arm band Body area: head/neck Location details: forehead Laceration length: 1.5 cm Foreign bodies: no foreign bodies Tendon involvement: none Nerve involvement: none Vascular damage: no Anesthesia: local infiltration Local anesthetic: lidocaine 1% with epinephrine Anesthetic total: 1 ml Preparation: Patient was prepped and draped in the usual sterile fashion. Irrigation solution: saline Irrigation method: jet lavage Amount of cleaning: standard Debridement: none Degree of undermining: none Skin closure: 6-0 Prolene Number of sutures: 3 Technique: simple Approximation: close Approximation difficulty: simple Dressinx4 sterile gauze and antibiotic ointment Patient tolerance: Patient tolerated the procedure well with no immediate complications [facility] Department of Emergency Medicine HPI History of Present Illness Patient Identification Kevyn Guzman is a 58 y.o. male. Patient information was obtained from patient. History/Exam limitations: none. Patient presented to the Emergency Department by: Silvana Tracey 1821 Chief Complaint Chief Complaint Patient presents with Fall Head Laceration The patient presents with a complaint of fall, with a head injury. The mechanism of the cleopatra prabhakar s injury was patient was walking down stairs when he tripped over the last step fall ing to his hands and knees and face, this occurred at home. The severity of the patient s symptoms is described as moderate. The patient is reported to not have had loss of conscio usness. The patient also has the following associated symptoms: Headache, blurry vision, di zziness. The patient is on the following anticoagulant medications: Aspirin Care prior to arrival consisted of nothing. Past Medical History Diagnosis Date Diabetes mellitus [...] Surgeon: Jevon Vargas DO; Location: [facility]; Service: General; Laterality: N/A; Abdominal surgery Cholecystectomy Skin cancer excision 10/10/2012 Procedure: EXCISION - SKIN CANCER; Surgeon: Sy Fierro MD; Location: [facility] ; Service: Plastics; Laterality: Left; upper arm and upper back w/frozen section Esophagogastroduodenoscopy 03/03/2013 Procedure: ESOPHAGOGASTRODUODENOSCOPY; Surgeon: Howie Gibson MD; Location: [facility]; S ervice: Gastroenterology; Laterality: N/A; Colonoscopy 03/04/2013 Procedure: COLONOSCOPY; Surgeon: Howie Gibson MD; Location: [facility]; Service: Gastroe nterology; Laterality: N/A; Upper gastrointestinal endoscopy Skin biopsy Hernia repair 07/03/2013 Procedure: LAPAROSCOPIC - HERNIA - INCISIONAL; Surgeon: Jevon Vargas DO; Location: [facility]; Service: General; Laterality: N/A; Prior to Admission medications Medication Sig Start Date End Date Taking? Authorizing Provider Albuterol Sulfate (VENTOLIN HFA IN) Inhale 2 puffs into the lungs as needed. 108 mcg/act Historical Provider Xpkwy-K-Uwfxdzklnqcwj (BEANO) TABS Take 150 Units by mouth [...] daily. 180 mg at hs 11/30/13 11/30/14 [facility] carlyn Mae MD docusate sodium [...] 100 mg by mouth nightly. Historical Provider bbysjvnpp-ovrkyxtc-qzmbajwgv hydroxide-simethicone Take 40 mLs by mouth daily [...] Musculoskeletal: Negative for: myalgias and arthralgias Skin: Positive for: laceration Neuro and psych: Negative for: fainting, positive for: head injury, trouble walking, dizzi ness, and blurry vision Endocrine/Heme/Lymph: Negative for: swollen lymph nodes, easy bruising Physical Exam Physical Exam BP 149/66 | Pulse 98 | Temp(Src) 98.9 F (37.2 C) (Oral) | Resp 16 | Ht 1.803 m (5' 11") | Wt 109.77 kg (242 lb) | BMI 33.77 kg/m2 | SpO2 95% Pulse Oximetry interpretation: Normal GCS: 4 - Opens eyes on own 5 - Alert and oriented 6 - Follows simple motor commands GCS Score: 15 General: Alert and oriented, responds appropriately to verbal stimuli, patient is developme ntally delayed Eyes: Normal inspection, pupils equal and round, non-icteric ENT: Ears normal Nose normal Pharynx normal Neck: Supple, no pain to palpation over cervical spine, patient has almost full range of m otion without pain. Cardiovascular: Rate and rhythm normal No murmurs Respiratory: Breath sounds normal bilaterally Abdomen: Soft, non-tender, non-distended No guarding or rebound Genitourinary: Deferred Rectal exam: Deferred Back: Normal inspection Skin: There is 2 vertical approximately 2 cm lacerations on the forehead, patient also has a hematoma below the lacerations, with pain to palpation over entire forehead. Neuro: Physical Exam Constitutional: He is oriented to person, place, and time. Neurological: He is alert and oriented to person, place, and time. He has normal sensation and intact cranial nerves. He displays no weakness and facial symmetry. He has a normal Stra ight Leg Raise Test, a normal Cerebellar Exam, a normal Lfsxsl-Plvn-Hjbwdf Test and a normal Heel to Robertson Test. He shows no pronator drift. Gait normal. Coordination and gait normal. G CS score is 15. ED Course Medical Decision Making and Emergency Department Course NEXUS Criteria Single "Yes" result makes the rule positive no: Midline cervical spine tenderness no: Presence of a distracting injury no: Altered Mental Status no: Presence of a neurologic deficit no: Intoxication Result: Nexus C-spine rule negative Adapted [place] Criteria for Head CT Inclusion: GCS = 15, independent of loss of consciousness, no neuro deficit, age > 3 yrs): Single Yes result makes the rule positive yes: Headache (diffuse or localized pain) no: Vomiting (any emesis) no: Seizure (witnessed or suspected) no: Intoxication (clinical assessment) no: Short term memory deficit yes: Age > 60 years yes: Evidence of physical injury above the clavicles Result: negative ED Department Course 9:25 PM I entered the room to evaluate the patient, and to take a history. Patient relates story above in history of present illness. After a thorough history and physical examinati on I feel that the patient needs a head CT scan at this time to rule out potential intracran ial bleed. I will reevaluate the patient with results of head CT scan, the patient also has several lacerations approximately 2 cm in size on the forehead, which need to be sutured. [address] was noted to be normal, sutures have been placed along with a dressing, ezekiel kauffman will be discharged home, with a ride home in a cab. I instructed the patient that he needs to return and have the sutures removed in 5-7 days, I instructed him to be evaluated by his PCP on Monday or Monday due to the head injury, I d iscussed in detail with him signs and symptoms that would necessitate an immediate return vi sit to the ED, patient states he will be able to stay with his girlfriend zachery who will b e able to evaluate him for the first 24 hours. I answered all questions and concerns to the best of my ability, patient verbalizes understanding and agrees with plan. Records Reviewed Old medical records. Labs & Radiology Results Laboratory Evaluation Results None Radiology and EKG Evaluation Imaging Results CT Head Non-Contrast (Final result) Result time: 03/07/14 21:54:27 Final result by Jevon Barraza (03/07/14 21:54:27) Impression: 1. Soft tissue contusion left forehead. 2. No intracranial hemorrhage or skull fracture. 3. Persistent opacification of a tiny left frontal sinus, with no other evidence of sinusi tis. Narrative: HISTORY: Head injury. COMPARISON: 12/15/13-12/02/13. TECHNIQUE: 5-mm axial noncontrast CT images of the brain were acquired from the foramen magnum through the cranial vertex. FINDINGS: Soft tissue swelling left forehead. Subcutaneous contusion. No fracture. Tiny left frontal sinus again opacified, unchanged. Paranasal sinuses are otherwise clear. Mastoid air cells a re clear. Cortical sulci, basal cisterns, and ventricles appear unremarkable. No intracrania l hemorrhage. Diagnosis & Disposition ED Diagnoses Final diagnoses Fall, initial encounter Head injury, initial encounter Laceration of head, initial encounter Headache Disposition: ED Disposition Discharge Condition at discharge: Stable Follow-up Information Follow up With Details Comments Contact Info Jerrell Diego DO In 1 week For follow up, For suture removal [address] [address] [facility] in [place] In 1 week For suture removal [address] [facility] [address] Discharge Medications: Discharge Medication List as of 03/07/2014 10:28 PM Yo Nunez PA-C 03/08/14 0020 Reynaldo Prather DO 03/08/14 0111 Cleo light in this encounter Plan of Treatment +--------+ + + + + | Date | Type | Specialty | Care Team | Description | +--------+ + + + + | 10/16/ | Anti-coag | Anticoagulation | Brittany Zaragoza | | | 2019 | visit | | [address] | | | | | | [place], | | | | | | [place] [address] | | | | | | [phone] | | | | | | | | +--------+ + + + + documented as of this encounter Procedures + +--------+ + + + | Procedure Name | Priori | Date/Time | Associated Diagnosis | Comments | | | ty | | | | + +--------+ + + + | CT HEAD WO CONTRAST | Routin | 03/07/2014 | | Results for this | | | e | 9:38 PM | | procedure are in the | | | | PST | | results section. | + +--------+ + + + documented in this encounter Results CT Head wo Contrast (03/07/2014 9:38 PM PST) + + | Specimen | + + | | + + + + + | Impressions | Performed At | + + + | 1. Soft tissue contusion left forehead. 2. No intracranial | | | hemorrhage or skull fracture. 3. Persistent opacification of a tiny | | | left frontal sinus, with no other evidence of sinusitis. | | | | | + + + + + + | Narrative | Performed At | + + + | HISTORY: Head injury. COMPARISON: 12/15/13-12/02/13. | | | TECHNIQUE: 5-mm axial noncontrast CT images of the brain were | | | acquired from the foramen magnum through the cranial vertex. | | | FINDINGS: Soft tissue swelling left forehead. Subcutaneous contusion. | | | No fracture. Tiny left frontal sinus again opacified, unchanged. | | | Paranasal sinuses are otherwise clear. Mastoid air cells are clear. | | | Cortical sulci, basal cisterns, and ventricles appear unremarkable. | | | No intracranial hemorrhage. | | + + + + + | Procedure Note | + + | Richard, Rad Conversion - 09/20/2018 10:29 PM PDT HISTORY:Head injury. | | COMPARISON:12/15/13-12/02/13. TECHNIQUE:5-mm axial noncontrast CT images of the brain | | were acquired from the foramen magnum through the cranial vertex. FINDINGS:Soft tissue | | swelling left forehead. Subcutaneous contusion. No fracture. Tiny left frontal sinus | | again opacified, unchanged. Paranasal sinuses are otherwise clear. Mastoid air cells are | | clear. Cortical sulci, basal cisterns, and ventricles appear unremarkable. No | | intracranial hemorrhage. IMPRESSION: 1. Soft tissue contusion left forehead.2. No | | intracranial hemorrhage or skull fracture.3. Persistent opacification of a tiny left | | frontal sinus, with no other evidence of sinusitis. | |Soft tissue swelling left forehead. Subcutaneous contusion. No fracture. Tiny left frontal sinus again opacified, unchanged. Paranasal sinuses are otherwise clear. Mastoid air cells a re clear. Cortical sulci, basal cisterns, and ventricles appear | |unremarkable. No intracranial hemorrhage. | | | |IMPRESSION: | |1. Soft tissue contusion left forehead. | |2. No intracranial hemorrhage or skull fracture. | |3. Persistent opacification of a tiny left frontal sinus, with no other evidence of sinusi tis. | | | | | + + documented in this encounter Visit Diagnoses + + | Diagnosis | + + | Fall, initial encounter | + + | Head injury, initial encounter | + + | Laceration of head, initial encounter | + + | Headache(784.0) Headache | + + documented in this encounter
--- OUTSIDE RECORDS SUMMARY | ~2019-10-12 | XMS | Encounter Summary ---
Demographics + + + | Address | [address] | | | [place] [address] | + + + | Home Phone | | + + + | Preferred Language | Unknown | + + + | Marital Status | | + + + | Uatsdin Affiliation | 1027 | + + + [...] + | Sammi Kohler | ECON | [place] [address] | | + + + + + Care Team Providers + +------+ + | Care Flexographic Press Plate Setter Name | Role | Phone | + +------+ + | Mireya Pack NP | PCP | | + +------+ + Encounter Details +--------+ + + + + | Date | Type | Department | Care Team | Description | +--------+ + + + + | 09/24/ | Telephone | [facility] | Whit Bowen, | | | 2019 | | CENTER | RN | | | | | ANTICOAGULATION | | | | | | [facility] | | | | | | [address] | | | | | | [place], [place] | | | | | | [address] | | | | | | [phone] | | | +--------+ + + + [...] this encounter Miscellaneous Notes Telephone Encounter - Whit Bowen RN - 09/25/2019 7:39 AM PDTPt no-showed appointment x2. No response to phone call. First letter sent asking pt to schedule an appointment. Kojo macrano moved out 2 weeks. documented in this en counter Plan of [...] [place], | | | | | | [place] [address] | | | | | | [phone] | | | | | | | | +--------+ + + + + documented as of this encounter Visit Diagnoses Not on filedocumented in this encounter"
--- OUTSIDE RECORDS SUMMARY | ~2019-10-12 | XMS | Encounter Summary ---
Demographics + + + | Address | [address] | | | [place] [address] | + + + | Home Phone | | + + + | Preferred Language | Unknown | + + + | Marital Status | | + + + | Druze Affiliation | 1027 | + + + | Race | White | + + + | Ethnic Group | Not or | + + + Author + + + | Author | [facility] | | | and [place] | + + + | Organization | [facility] | | | and [place] | + + + | Address | Unknown | + + + | Phone | Unavailable | + + + Support + + + + + | Name | Relationship | Address | Phone | + + + + + | Sammi Kohler | E[place] | [place] [address] | | + + + + + Care Team Providers + +------+ + | Care Floral Department Specialist Name | Role | Phone | + +------+ + PCP | Unavailable | + +------+ + Encounter Details +--------+ + + + + | Date | Type | Department | Care Team | Description | +--------+ + + + + | 05/12/ | Emergency | [facility] | Zach Tena, | Weakness; | | 2019 | | MEDICAL CENTER | [address] | Hyperglycemia | | | | EMERGENCY CENTER | [place] [address] | without ketosis; | | | | [address] | [phone] | Medical | | | | [place], [place] | | non-compliance | | | | [address] | | | | | | [phone] | | | +--------+ + + + [...] + + + | Blood Pressure | 171/75 | 05/12/2018 1:13 PM | | | | | PDT | | + + + + + | Pulse | 62 | 05/12/2018 1:13 PM | | | | | PDT | | + + + + + | Temperature | 36.9 C (98.5 F) | 05/12/2018 1:13 PM | | | | | PDT | | + + + + + | Respiratory Rate | 17 | 05/12/2018 1:13 PM | | | | | PDT | | + + + + + | Oxygen Saturation | - | - | | + + + + + | Inhaled Oxygen | - | - | | | Concentration | | | | + + + + + | Weight | 97.3 kg (214 lb 8.2 | 05/12/2018 1:13 PM | | | | oz) | PDT | | + + + + + | Height | - | - | | + + + + + | Body Mass Index | 29.92 | 02/07/2018 10:41 AM | | | [...] Progress Notes Conversion Transaction, Provider Unknown - 05/12/2018 2:23 PM PDTFormatting of this note m ight be different from the original. Case Management by González Soni MS, MSW at 05/12/18 1423 Author: González Soni, MS, COMMERCIAL INTELLIGENCE MANAGER Service: (none) Author Type: Poultry Packer Filed: 05/12/18 5587 Date of Service: 05/12/18 1423 Status: Signed Radio Equipment Installer: González Soni, MS, COMMERCIAL INTELLIGENCE MANAGER (Poultry Packer) Referral to see pt from . Pt presents to Emergency room for syncope. Pt resides in [place] in an independent apartment, pt does not drive, he uses dial a ride. Pt with a developmental disability. Pt is pleasant, alert, cooperative. Pt's ex-mother in law Sammi is bedside an d pt's 38 yr old developmentally disabled son also present. Sammi is the caregiver for santiago horton son. Pt's has passed many years ago. Today there is a concern that pt has had many falls, having difficulty with managing blood sugars and Sammi is stating she hopes patient would agree to Move to [place] to allow cleopatra prabhakar to be closer to her as her driving is restricted due to her older age. Pt has been re luctant to obtain assisted services again. He had them several years ago, and had decided he wanted more freedom with his finances and life. Pt currently has a appointment person, acco shaquilleant, to manage his funds and distribute money to him. Pt is using dial a ride, home delivered meals, recently applied Medicaid again,and reports it should be effective "Monday". Pt is now agreeable to apply for JOE and allow a home caregiver. Educated ALT to assist with case management as pt and family require assistance with acces s to community programs. Referral made to home health, face to face completed and added to A VS. Referral to [facility], and referral to [facility] intake and referral faxed . Appears pt is already connected to ALT Sofie Turnball, getting 20 hours per month by [facility] s care agency. It is not anticipated patient will admit to hospital. Goal is return home via private auto. docume nted in this encounter ED Notes Conversion Transaction, Provider Unknown - 05/12/2018 1:14 PM PDTFormatting of this note m ight be different from the original. ED Notes by Angelia Mccullough RN at 05/12/18 8472 Author: Angelia Mccullough RN Service: (none) Author Type: Registered Nurse Filed: 05/12/181313 Date of Service: 05/12/181313 Status: Signed Radio Equipment Installer: Angelia Mccullough RN (Registered Nurse) Bedside report given to EVE Mcgovern. Angelia Mccullough RN 05/12/181313 immel , Zach Terrell MD - 05/12/2018 9:28 AM PDTFormatting of this note might be different from the o riginal. ED Provider Notes by Zach Tena MD at 05/12/18927 Author: Zach Tena MD Service: (none) Author Type: Physician Filed: 05/13/18614 Date of Service: 05/12/18927 Status: Signed Radio Equipment Installer: Zach Tena MD (Physician) [facility] Department of Emergency Medicine 9:29 AM History of Present Illness Patient Identification Kevyn Guzman is a 62 y.o. male. Patient information was obtained from patient. History/Exam limitations: none. Patient presented to the Emergency Department by: Car Chief Complaint Chief Complaint Patient presents with Syncope Syncope x2 last night, reports "I think I am having a stroke. Sometimes my speech is slop py. My vision is fuzzy" Onset of reported sx, yesterday. Back Pain Neck and low back, denies injury This is a 62 y.o. male with chief complaint of syncope. Onset of symptoms was yesterday, w ith an ongoing course since that time. The symptoms are currently described to be of modera te severity. Pt also complains of join pain. Patient states that he was feeling weak and fa inted. Patient states that he has fallen four times yesterday. Patient states he lives by hi mself in his apartment. Patient states that he felt dizzy and states that the room was spinn ing. Patient states that he is diabetic and feels too weak to get something to eat. Pt state s that he feels like he is having a stroke. Patient also states that he received assistance with getting groceries. Pt states that he has been eaten well. Pt denies fevers, any new o r worsening symptoms at this time.. No care prior to arrival reported at this time. Other significant factors in the PMH are noted and include: cholecystectomy, abdominal surg wilbert. PCP: Mik Diego Past Medical History Diagnosis Date Acute pulmonary [...] INCISIONAL; Surgeon: Jevon Vargas DO; Location: [facility] MAIN OR; Service: General; Laterality: N/A; [...] SECTION; Surgeon: Sy Fierro MD; Location: [facility] OR; Service: Plastics; Laterality: Left; forearm UNLISTED PROCEDURE ARTHROSCOPY UPPER GASTROINTESTINAL ENDOSCOPY Prior to Admission medications Medication Sig Start Date End Date Taking? Authorizing Provider amLODIPine (NORVASC) 10 MG tablet Take 0.5 tablets by mouth daily. 10/18/17 Yes Bruno Mark MD ARIPiprazole (ABILIFY) 10 MG tablet Take 10 mg by mouth daily. Yes Historical Provider docusate sodium (COLACE) 250 MG capsule Take 250 mg by mouth daily. Yes Historical Provid er fenofibrate (TRIGLIDE) 160 MG tablet Take 160 mg by mouth daily. Yes Historical Provider gabapentin (NEURONTIN) 100 MG capsule Take 100 mg by mouth every evening. Yes Historical Provider lamoTRIgine (LAMICTAL) 200 MG tablet Take 200 mg by mouth daily. Yes Historical Provider lisinopril (ZESTRIL) 40 MG tablet Take 40 mg by mouth daily. Yes Historical Provider lithium (LITHOBID) 300 MG CR tablet Take 300 mg by mouth daily. Yes Historical Provider nebivolol (BYSTOLIC) 10 MG tablet Take 1 tablet by mouth every evening. Hold for Dizziness and Heart Rate <65 03/29/18 Yes Mik Diego, DO omeprazole (PRILOSEC) 20 MG capsule Take 20 mg by mouth every morning before breakfast. Y es Historical Provider PARoxetine (PAXIL) 20 MG tablet Take 10 mg by mouth daily. 10/06/17 Yes Mik rachel, DO pravastatin (PRAVACHOL) 80 MG tablet Take 80 mg by mouth nightly. Yes Historical Provider tamsulosin (FLOMAX) 0.4 MG capsule Take 0.4 mg by mouth 2 (two) times daily. Administer 30 minutes after the same meal each day. Capsules should be swallowed whole; do not crush, chew , or open Yes Historical Provider apixaban (ELIQUIS) 5 MG tablet Take 1 tablet by mouth 2 (two) times daily. 02/07/18 Sammy John MD-R2 aspirin 81 MG tablet Take 81 mg by mouth daily. Historical Provider budesonide-formoterol (SYMBICORT) 160-4.5 MCG/ACT inhaler Inhale 2 puffs into the lungs 2 ( two) times daily. 02/07/18 02/07/19 Sammy John MD-R2 insulin aspart (NOVOLOG) 100 UNIT/ML injection Inject 20 units 3 times a day with meals 02/07 Sammy John MD-R2 insulin detemir (LEVEMIR) 100 UNIT/ML injection Inject 30 Units into the skin 2 (two) times daily. Inject 45 units subcutaneous at bedtime Patient taking differently: Inject 45 Units into the skin nightly. 10/18/17 Bruno devine MD Allergies Allergen Reactions Nitroglycerin Hives Vitamin B12 Rash Social History Social History Marital status: Spouse name: N/A Number of children: 1 Years of education: s. [employer] Occupational History disabled Social History Main Topics [...] Brother Review of Systems Review of Systems Constitutional: Negative for fever. Musculoskeletal: Positive for joint pain. Neurological: Positive for dizziness, loss of consciousness and weakness. USE dot-ros and make sure to check all other negative Physical Exam BP 173/82 (BP Location: Left upper arm) | Pulse 69 | Temp 98.5 F (36.9 C) (Temporal) | Resp 20 | Wt 97.3 kg (214 lb 8.1 oz) | SpO2 95% | BMI 29.92 kg/m Vitals: hypertneisve otherwise WNl Pulse Oximetry Interpretation: Normal General: Alert, in no acute distress, non-toxic Head: Normocephalic. Atraumatic. Eyes: Normal inspection, pupils equal and round, non-icteric, EOM full ENT: Ears and nose normal external inspection Pharynx normal Moist mucous membranes, pink appearing Neck: Normal inspection Supple No lymphadenopathy. No JVD CVS: Rate and rhythm normal No Bruits. No murmurs Respiratory: Breath sounds normal bilaterally, normal chest rise and fall, no obvious traum a Abdomen: Soft, non-distended, Bowel sounds unremarkable. CVA's non-tender. No guarding or r ebound. No masses. No hernias. Rectal deferred Back: No point tenderness. Moves without difficulty Extremities: Moves all extremities without pain or restriction. No obvious deformity. Well perfused. No calf tenderness No leg swelling Skin: Color normal. Warm and dry. No rash noted Neuro: No gross motor/sensory deficits noted. No facial asymmetry Medical Decision Making and Emergency Department Course ED Department Course 9:29 AM Pt presents to the ED complaining of syncope. On exam, pt is non-toxic. Normal exa m. I feel that the list of possible emergent diagnoses that the patient requires an evaluation for includes (but is not limited to) ACS, Hyper or hypo glycemia, head injury, or other. I believe that laboratory testing and further diagnostic testing is necessary to ensure that there is no acute emergent cause of the symptoms. 10:00 AM CP resulted, elevated glucose at 400, elevated ALK phos at 131, low APTT at 21, el evated MMB at 5.7 10:14 AM XR Chest PA and lateral resulted, negative CT head resulted, No acute intracranial findings. Mild diffuse cerebral volume loss with fi ndings suggestive of sequela of chronic microvascular ischemia 11:59 AM lipase resulted, normal Urinalysis resulted, elevated glucose at 500 Very poor compliance with medical regime. 12:54 PM Complaining again of CP and being very anxious. Repeat EKG negative (see below). N o troponin ordered at initial evaluation. Added on now. 1:36 PM Troponin negative. Grandmother/ rehab care assistant in the room. Would like to facilitate Emre Guzman getting into an assisted living facility to make sure diet and medications being gi gregory as prescribed. Poultry Packer is in the room. 1:59 PM Resources for patient management provided. Family will follow up and understand. Based upon the pt s history, physical exam, ED course, and diagnostic studies, I feel th at there is no current emergent medical condition that warrants admission, transfer, or furt her ED treatment at this time. Medications sodium chloride 0.9 % flush 10 mL (10 mLs Intravenous Given 05/12/18 1052) sodium chloride (bolus) 0.9 % 1,000 mL (1,000 mLs Intravenous New Bag 05/12/18 1053) Vitals: 05/12/18 1142 05/12/18 1202 05/12/18 1242 05/12/18 1302 BP: 173/76 171/77 162/70 171/75 BP Location: Pulse: 62 60 58 62 Resp: 25 18 13 17 Temp: TempSrc: SpO2: 96% 99% 94% 96% Weight: Records Reviewed Old medical records. Nursing notes. Previous ED visits for similar and unrelated complaints. Laboratory Evaluation Results Procedure Component Value Ref Range Date/Time Troponin I, Lab [[id number]] Collected: 05/12/18 1135 Order Status: Completed Specimen: Blood Updated: 05/12/18 1320 TROPONIN I 0.039 0.00 - 0.04 ng/mL Urinalysis (reflex to micro/reflex to culture) [[id number]] (Abnormal) Collected: 05/12 115 Order Status: Completed Specimen: Urine, Clean Catch Updated: 05/12/18 1206 COLOR UA YELLOW CLARITY CLEAR Specific Victor, UA 1.029 1.002 - 1.030 LEUKOCYTE ESTERASE NEGATIVE NEGATIVE NITRITE NEGATIVE NEGATIVE UROBILINOGEN NORMAL <1.1 mg/dL PROTEIN NEGATIVE NEGATIVE mg/dL PH,URINE 5.0 5.0 - 8.0 BLOOD NEGATIVE NEGATIVE KETONES NEGATIVE NEGATIVE mg/dL BILIRUBIN NEGATIVE NEGATIVE GLUCOSE >500 (A) NEGATIVE mg/dL Lipase [[id number]] Collected: 05/12/18924 Order Status: Completed Specimen: Blood Updated: 05/12/18 1159 LIPASE 46 12 - 53 U/L Cardiac Panel [[id number]] (Abnormal) Collected: 05/12/18924 Order Status: Completed Updated: 05/12/18 1000 WBC 7.99 3.80 - 11.00 K/uL RBC 5.38 4.20 - 5.70 M/uL HGB 15.0 13.2 - 17.0 g/dL HCT 44.6 39.0 - 50.0 % MCV 82.9 80.0 - 100.0 fl MCH 27.8 27.0 - 34.0 pg MCHC 33.5 32.0 - 35.5 g/dL RDW SD 42.4 37 - 53 fl PLT 222 150 - 400 K/uL MPV 8.0 fl DIFF TYPE AUTOMATED NEUTROPHILS 59.24 % LYMPHOCYTES 25.95 % MONOCYTES 8.85 % EOSINOPHILS 5.08 % BASOPHILS 0.88 % NEUTROPHILS ABS 4.73 1.90 - 7.40 K/uL LYMPHOCYTES ABS 2.07 1.00 - 3.90 K/uL MONOCYTES ABS 0.71 0.00 - 0.80 K/uL EOSINOPHILS ABS 0.41 0.00 - 0.50 K/uL BASOPHILS ABS 0.07 0.00 - 0.10 K/uL SODIUM 140 135 - 145 mmol/L POTASSIUM 3.5 3.5 - 4.9 mmol/L CHLORIDE 103 99 - 109 mmol/L CO2 29 23 - 32 mmol/L ANION GAP AGAP 12 5 - 20 mmol/L GLUCOSE 400 (H) 65 - 99 mg/dL BUN 22 8 - 25 mg/dL CREATININE 1.01 0.70 - 1.30 mg/dL BUN/CREAT 22 CALCIUM 8.8 8.5 - 10.5 mg/dL TOTAL PROTEIN 6.4 6.3 - 8.2 g/dL Albumin 3.8 3.3 - 4.8 g/dL GLOBULIN 2.6 1.3 - 4.9 g/dL A/G 1.5 1.0 - 2.4 TBIL 0.6 0.1 - 1.5 mg/dL ALK PHOS 131 (H) 35 - 115 U/L AST 28 10 - 45 U/L ALT 18 10 - 65 U/L EGFR >60 >60 mL/min/1.73m2 CPK 345 55 - 400 U/L INR 1.0 APTT 21 (L) 23 - 32 seconds MMB 5.7 (H) 0.5 - 3.6 ng/mL CK-MB Index 1.7 I personally reviewed the lab results and they have been posted to the chart. Pertinent po sitive and negative findings have been addressed appropriately. Radiology and EKG Evaluation Imaging Results CT Head Non-Contrast (Final result) Result time 05/12/18 10:30:47 Final result by Edd Lam MD (05/12/18 10:30:47) Impression: *No acute intracranial findings. *Mild diffuse cerebral volume loss with findings suggestive of sequela of chronic microvascular ischemia. Signed by: Irina Lam, Edd Sign Date/Time: 05/12/2018 10:27 AM Narrative: CT HEAD WITHOUT CONTRAST CLINICAL INFORMATION: Vertigo/Dizziness. COMPARISON: 06/25/2016. PROCEDURE: Axial images were obtained through the [...] mass lesion, or evidence of acute infarct. Intracranial atherosclerosis. Mild diffuse cerebral volume loss. Subtle ill-defined hypodense attenuation in supratentorial white matter. Ventricles and extra-axial fluid spaces: No hydrocephalus. Mildly dilated extra-axial CSF spaces. Paranasal sinuses and mastoid air cells: Mucosal thickening in both ethmoid and both frontal sinuses. No air-fluid levels. Mildly deviated nasal septum to the right side. Left jerome bullosa. Soft tissue attenuation mitral in external acoustic meatus bilaterally, probable cerumen. Calvarium and extracranial soft tissues: Normal. Orbits: Imaged portions of the orbits are normal. XR chest PA and lateral (Final result) Result time 05/12/18 10:14:54 Final result by Annalisa Oseguera MD (05/12/18 10:14:54) Impression: Negative chest. Signed by: Irina Oseguera, Annalisa Sign Date/Time: 05/12/2018 10:11 AM Narrative: CHEST TWO VIEWS CLINICAL INFORMATION: Syncope, Back Pain. COMPARISON: XR CHEST 2 VIEW FRONTAL AND LATERAL (02/06/2018); XR CHEST 1 VIEW (01/16/2018); FINDINGS: Heart, lungs and vessels normal. No pneumothorax, pleural effusion or adenopathy. No significant bone abnormality. 10:40 AM Sinus bradycardia rate of 59. Possible left atrial enlargement. Non specific t wav e abnormality. Reviewed and interpreted by me independently and contemporaneously. Zach Tena 12:54 AM Sinus bradycardia. Non-specific st-t changes. Consistant with prior studies. ED Diagnoses Final diagnoses Weakness Hyperglycemia without ketosis Medical non-compliance Disposition: ED Disposition ED Disposition Condition Comment Discharge Stable Follow-up Information Follow up With Specialties Details Why Contact Info Aging and Longterm Care Call Call on Monday to discuss getting JOE caregiver in home a nd access to case management services. [phone] [facility] Follow up A referral has been made for director of social work, physical therapy evaluation and shelter for medication teaching. [address] [facility] [address] [facility] [address] Mik Diego, Family Medicine In 3 days For Outpatient evaluation [address] [place] [address] [facility] [address] Discharge Medications: New Prescriptions No new medications Zach Tena MD Procedures Additional Documentation Procedures Attending Provider Note: I, Zach Tena MD personally performed the services described in this documentation, as scribed by Hermes San in my presence, and it is both accurate and complete. Chart Reviewed and Completed: 05/12/2018 2:00 PM Scribe: I Kari Aleman, scribing for and in the presence of Zach Tena MD. Signed by: Kari Aleman 05/12/2018 1:11 PM Zach Tena MD 05/13/18614 onversion Transacti on, Provider Unknown - 05/12/2018 9:13 AM PDTFormatting of this note might be different fro m the original. ED Notes by Samanta Moya RN at 05/12/18912 Author: Samanta Moya RN Service: (none) Author Type: Registered Nurse Filed: 05/12/18918 Date of Service: 05/12/18912 Status: Addendum Radio Equipment Installer: Samanta Moya RN (Registered Nurse) Related Notes: Original Note by Samanta Moya RN (Registered Nurse) filed at 05/12/18918 Pt here stating "I think I am having a stroke." Pt reports that he has felt back weakness, neck weakness, and feels that his Atrial fibrillation is back. Pt states that he also has ch est tightness. Pt states onset of symptoms was last night but is unsure what time. Provider notified. Samanta Moya RN 05/12/18918 docume nted in this encounter Plan of [...] | | | | | | [place] [address] | | | | | | [phone] | | | | | | | | +--------+ + + + + documented as of this encounter Procedures + +--------+ + + + | Procedure Name | Priori | Date/Time | Associated Diagnosis | Comments | | | ty | | | | + +--------+ + + + | ECG 12 LEAD | Routin | 05/12/2018 | | Results for this | | | e | 12:54 PM | | procedure are in the | | | | PDT | | results section. | + +--------+ + + + | URINALYSIS, REFLEX | Routin | 05/12/2018 | | Results for this | | MICROSCOPIC AND/OR | e | 11:53 AM | | procedure are in the | | CULTURE | | PDT | | results section. | + +--------+ + + + | TROPONIN I | Routin | 05/12/2018 | | Results for this | | | e | 11:35 AM | | procedure are in the | | | | PDT | | results section. | + +--------+ + + + | ECG 12 LEAD | Routin | 05/12/2018 | | Results for this | | | e | 10:40 AM | | procedure are in the | | | | PDT | | results section. | + +--------+ + + + | CT HEAD WO CONTRAST | Routin | 05/12/2018 | | Results for this | | | e | 10:20 AM | | procedure are in the | | | | PDT | | results section. | + +--------+ + + + | XR CHEST 2 VIEWS | Routin | 05/12/2018 | | Results for this | | | e | 10:08 AM | | procedure are in the | | | | PDT | | results section. | + +--------+ + + + | HISTORICAL LAB PANEL | Routin | 05/12/2018 | | Results for this | | RESULT | e | 9:25 AM | | procedure are in the | | | | PDT | | results section. | + +--------+ + + + | LIPASE | Routin | 05/12/2018 | | Results for this | | | e | 9:25 AM | | procedure are in the | | | | PDT | | results section. | + +--------+ + + + documented in this encounter Results ECG 12 lead (05/12/2018 12:54 PM PDT) + + + + + + | Component | Value | Ref Range | Performed | Pathologist | | | | | At | Signature | + + + + + + | DIAGNOSIS: | Sinus | | EXTERNAL | | | | bradycardiaPossible Left | | LAB | | | | atrial enlargementLeft | | | | | | ventricular hypertrophyT | | | | | | wave abnormality, | | | | | | consider inferolateral | | | | | | ischemiaAbnormal ECGWhen | | | | | | compared with ECG of | | | | | | 12-MAY-2018 10:40,No | | | | | | significant [...] (500), | | | | | | assignment editor Hortensia Carrillo | | | | | | (144) on 05/12/2018 | | | | | | 9:30:31 PM | | | | + + [...] | | | + +---------+ + + Urinalysis, Reflex Microscopic and/or Culture (05/12/2018 11:53 AM PDT) + + + + + [...] + + + + | Specific | 1.029 | 1.002 - 1.030 | EXTERNAL | | | Victor, | | | LAB | | | [...] | | | Urine | performed at [facility];[address] | | LAB | | | | [address];[place] | | | | | | [address] | | | | + + + + + + + + | Specimen | + + | | + + + +---------+ + + | Performing | Address | City/State/Zipcode | Phone Number | | Organization | | | | + +---------+ + + | EXTERNAL LAB | | | | + +---------+ + + Troponin I (05/12/2018 11:35 AM PDT) + + + + + + | Component | Value | Ref Range | Performed | Pathologist | | | | | At | Signature | + + + + + + | Troponin I, | 0.039Comment: 0.04 | 0.00 - 0.04 | EXTERNAL [...] at | | | | | | [facility];[address] | | | | | | [facility];[place] [address] | | | | + + + [...] + +---------+ + + ECG 12 lead (05/12/2018 10:40 AM PDT) + + + + + + | Component | Value | Ref Range | Performed | Pathologist | | | | | At | Signature | + + + + + + | DIAGNOSIS: | Sinus | | EXTERNAL | | | | bradycardiaPossible Left | | LAB | | | | atrial | | | | | | enlargementNonspecific T | | | | | | wave | | | | | | abnormalityAbnormal | | | | | | ECGWhen compared with | | | | | | ECG of 06-FEB-2018 | | | | | | 07:29,Sinus rhythm has | | | | | | replaced Atrial | | | | | | fibrillationVent. rate | | | | | | has decreased BY 82 | | | | | | BPMST no longer | | | | | | depressed in Inferior | | | | | | leadsST no longer | | | | | | depressed in | | | | | | Anterolateral | | | | | | leadsNonspecific T wave | | | | | | abnormality has replaced | | | | | | inverted T waves in | | | | | | Inferior leadsThis ECG | | | | | [...] (500), | | | | | | assignment editor Hortensia Carrillo | | | | | | (144) on 05/12/2018 | | | | | | 9:28:40 PM | | | | + + [...] +---------+ + + CT Head wo Contrast (05/12/2018 10:20 AM PDT) + + | Specimen | + + | | + + + + + | Impressions | Performed At | + + + | *No acute intracranial findings. *Mild diffuse cerebral volume loss | | | with findings suggestive of sequela of chronic microvascular | | | ischemia. Signed by: Irina Lam, Diomedesder Sign Date/Time: | | | 05/12/2018 10:27 AM | | + + + + + + | Narrative | Performed At | + + + | CT HEAD WITHOUT CONTRAST CLINICAL INFORMATION: Vertigo/Dizziness. | | | COMPARISON: 06/25/2016. PROCEDURE: Axial images were obtained | | | through the head without IV contrast. Multiplanar reformations were | | | obtained from the acquisition data. At least one of the following CT | | | dose optimization techniques were used: Automated exposure control; | | | Adjustment of mA and/or kV according to patient size; Use of | | | iterative reconstruction technique. FINDINGS: Brain: No intracranial | | | hemorrhage, midline shift or pathologic mass effect. No cerebral | | | edema, mass lesion, or evidence of acute infarct. Intracranial | | | atherosclerosis. Mild diffuse cerebral volume loss. Subtle | | | ill-defined hypodense attenuation in supratentorial white matter. | | | Ventricles and extra-axial fluid spaces: No hydrocephalus. Mildly | | | dilated extra-axial CSF spaces. Paranasal sinuses and mastoid air | | | cells: Mucosal thickening in both ethmoid and both frontal sinuses. | | | No air-fluid levels. Mildly deviated nasal septum to the right | | | side. Left jerome bullosa. Soft tissue attenuation mitral in | | | external acoustic meatus bilaterally, probable cerumen. Calvarium | | | and extracranial soft tissues: Normal. Orbits: Imaged portions of the | | | orbits are normal. | | + + + + + | Procedure Note | + + | Joaquin Ramos Conversion - 09/18/2018 4:[address] HEAD WITHOUT CONTRAST | | CLINICAL INFORMATION: | | Vertigo/Dizziness. | | COMPARISON: | | 06/25/2016. | | PROCEDURE: | | Axial images were obtained through the head without IV contrast. | | Multiplanar reformations were obtained from the acquisition data. | | At least one of the following CT dose optimization techniques were | | used: Automated exposure control; Adjustment of mA and/or kV according | | to patient size; Use of iterative reconstruction technique. | | FINDINGS: | | Brain: No intracranial hemorrhage, midline shift or pathologic mass | | effect. No cerebral edema, mass lesion, or evidence of acute infarct. | | Intracranial atherosclerosis. Mild diffuse cerebral volume loss. | | Subtle ill-defined hypodense attenuation in supratentorial white matter. | | Ventricles and extra-axial fluid spaces: No hydrocephalus. Mildly | | dilated extra-axial CSF spaces. | | Paranasal sinuses and mastoid air cells: Mucosal thickening in both | | ethmoid and both frontal sinuses. No air-fluid levels. Mildly | | deviated nasal septum to the right side. Left jerome bullosa. | | Soft tissue attenuation mitral in external acoustic meatus bilaterally, | | probable cerumen. | | Calvarium and extracranial soft tissues: Normal. | | Orbits: Imaged portions of the orbits are normal. | | IMPRESSION: | | *No acute intracranial findings. | | *Mild diffuse cerebral volume loss with findings suggestive of sequela | | of chronic microvascular ischemia. | | Signed by: Irina Lam, Edd | | Sign Date/Time: 05/12/2018 10:27 AM | + + XR Chest 2 Vws (05/12/2018 10:08 AM PDT) + + | Specimen | + + | | + + + + + | Impressions | Performed At | + + + | Negative chest. Signed by: Irina Oseguera, Annalisa Pina Date/Time: | | | 05/12/2018 10:11 AM | | + + + + + + | Narrative | Performed At | + + + | CHEST TWO VIEWS CLINICAL INFORMATION: Syncope, Back Pain. | | | COMPARISON: XR CHEST 2 VIEW FRONTAL AND LATERAL (02/06/2018); XR CHEST | | | 1 VIEW (01/16/2018); FINDINGS: Heart, lungs and vessels normal. No | | | pneumothorax, pleural effusion or adenopathy. No significant bone | | | abnormality. | | + + + + + | Procedure Note | + + | Richard, Rad Conversion - 09/18/2018 4:21 PM PDT CHEST TWO VIEWS | | CLINICAL INFORMATION: | | Syncope, Back Pain. | | COMPARISON: | | XR CHEST 2 VIEW FRONTAL AND LATERAL (02/06/2018); XR CHEST 1 VIEW | | (01/16/2018); | | FINDINGS: | | Heart, lungs and vessels normal. No pneumothorax, pleural effusion or | | adenopathy. No significant bone abnormality. | | IMPRESSION: | | Negative chest. | | Signed by: Irina OsegueraAnnalisa | | Sign Date/Time: 05/12/2018 10:11 AM | + + HISTORICAL LAB PANEL RESULT (05/12/2018 9:25 AM PDT) + + + + + -+ | Component | Value | Ref Range | Performed | Pathologist | | | | | At | Signature | + + + + + -+ | WBC | 7.99 | 3.80 - 11.00 | EXTERNAL | | | | | K/uL | LAB | | + + + + + -+ | Non- | 5.38 | 4.20 - 5.70 | EXTERNAL | | | Red Blood | | M/uL | LAB | | | Cells | | | | | | Counted | | | | | + + + + + -+ | Hemoglobin | 15.0 | 13.2 - 17.0 | EXTERNAL | | | | | g/dL | LAB | | + + + + + -+ | Hematocrit, | 44.6 | 39.0 - 50.0 % | EXTERNAL | | | POC | | | LAB | | + + + + + -+ | MCV | 82.9 | 80.0 - 100.0 fl | EXTERNAL | | | | | | LAB | | + + + + + -+ | MCH | 27.8 | 27.0 - 34.0 pg | EXTERNAL | | | | | | LAB | | + + + + + -+ | MCHC | 33.5 | 32.0 - 35.5 | EXTERNAL | | | | | g/dL | LAB | | + + + + + -+ | RDW-CV | 42.4 | 37 - 53 fl | EXTERNAL | | | | | | LAB | | + + + + + -+ | Platelet | 222 | 150 - 400 K/uL | EXTERNAL [...] + + -+ | % Segmented | 59.24 | % | EXTERNAL | | | | | | LAB | | | Neutrophils | | | | | + + + + + -+ | % | 25.95 | % | EXTERNAL | | | Lymphocytes | | | LAB | | + + + + + -+ | % Monocytes | 8.85 | % | EXTERNAL | | | | | | LAB | | + + + + + -+ | % | 5.08 | % | EXTERNAL | | | Eosinophils | | | LAB | | + + + + + -+ | % Basophils | 0.88 | % | EXTERNAL | | | | | | LAB | | + + + + + -+ | Absolute | 4.73 | 1.90 - 7.40 | EXTERNAL | | | Segmented | | K/uL | LAB | | | Neutrophils | | | | | + + + + + -+ | Absolute | 2.07 | 1.00 - 3.90 | EXTERNAL | | | Lymphocytes | | K/uL | LAB | | + + + + + -+ | Absolute | 0.71 | 0.00 - 0.80 | EXTERNAL | | | Monocytes | | K/uL | LAB | | + + + + + -+ | Absolute | 0.41 | 0.00 - 0.50 | EXTERNAL | [...] + + + -+ | K | 3.5 | 3.5 - 4.9 | EXTERNAL | | | | | mmol/L | LAB | | + + + + + -+ | Cl | 103 | 99 - 109 mmol/L | EXTERNAL [...] + + + -+ | Glucose, | 400 (H) | 65 - 99 mg/dL | EXTERNAL | | | Fasting | | | LAB | | + + + + + -+ | BUN | 22 | 8 - 25 mg/dL | EXTERNAL | | | | | | LAB | | + + + + + -+ | Creatinine | 1.01 | 0.70 - 1.30 | EXTERNAL | | | | | mg/dL | LAB | | + + + + + -+ | BUN/Creatin | 22 | | EXTERNAL | | | ine Ratio | | | LAB | | + + + + + -+ | Calcium | 8.8 | 8.5 - 10.5 | EXTERNAL | | | | | mg/dL | LAB | | + + + + + -+ | Protein, | 6.4 | 6.3 - 8.2 g/dL | EXTERNAL | | | Total | | | LAB | | + + + + + -+ | Albumin | 3.8 | 3.3 - 4.8 g/dL | EXTERNAL | | | | | | LAB | | + + + + + -+ | Globulin | 2.6 | 1.3 - 4.9 g/dL | EXTERNAL | | | | | | LAB | | + + + + + -+ | A/G Ratio | 1.5 | 1.0 - 2.4 | EXTERNAL | | | | | | LAB | | + + + + + -+ | Bilirubin | 0.6 | 0.1 - 1.5 mg/dL | EXTERNAL | | | Total | | | LAB | | + + + + + -+ | ALP, | 131 (H) | 35 - 115 U/L | EXTERNAL | | | External | | | LAB | | + + + + + -+ | AST | 28 | 10 - 45 U/L | EXTERNAL [...] + + -+ | CK, Total | 345 | 55 - 400 U/L | EXTERNAL [...] + + + -+ | aPTT, | 21 (L) | 23 - 32 seconds | EXTERNAL | | | Patient | | | LAB | | + + + + + -+ | CK-MB | 5.7 (H) | 0.5 - 3.6 ng/mL | EXTERNAL | | | | | | LAB | | + + + + + -+ | CK-MB Index | 1.7Comment: CK INDEX | | EXTERNAL | | [...] | | + +---------+ + + Lipase (05/12/2018 9:25 AM PDT) + + + + + + | Component | Value | Ref Range | Performed | Pathologist | | | | | At | Signature | + + + + + + | Lipase | 46Comment: Testing | 12 - 53 U/L | EXTERNAL | | | | performed at [facility];[address] | | LAB | | | | [address];[place] | | | | | | [id number] | | | | + + + [...] + | Diagnosis | + + | Weakness Other malaise and fatigue | + + | Hyperglycemia without ketosis Other abnormal glucose | + + | Medical non-compliance Personal history of noncompliance with medical treatment, | | presenting hazards to health | + + documented in this encounter
--- OUTSIDE RECORDS SUMMARY | ~2019-10-12 | XMS | Encounter Summary ---
Demographics + + + | Address | [address] | | | [place] [address] | + + + | Home Phone | | + + + | Preferred Language | Unknown | + + + | Marital Status | | + + + | Religion Affiliation | 1027 | + + + [...] + | Sammi Kohler | ECON | [place] [address] | | + + + + + Care Team Providers + +------+ + | Care Preschool Teacher Assistant Name | Role | Phone | + +------+ + PCP | Unavailable | + +------+ + Encounter Details +--------+ + + + + | Date | Type | Department | Care Team | Description | +--------+ + + + + | 09/11/ | Hospital | [facility] | Jevon Key | Symptomatic | | 2013 - | Encounter | [facility] [address] | B, DO [address] | cholelithiasis; | | | | [address] | [address] | Biliary colic; | | 09/14/ | | [place], [place] | [place] [address] | Vomiting; | | 2012 | | [address] | [phone] | Cholelithiasis; | | | | [phone] | | Labile hypertension; | | | [...] Summaries by Jevon Key DO at 10/03/12 3727 Author: Jevon Key DO Service: (none) Author Type: Physician Filed: 10/03/12 8009 Date of Service: 10/03/12 0584 Status: Signed Parliamentary Archivist: Jevon Key DO (Physician) [facility] Service: General Surgery Discharge Summary Date [...] - CHOLECYSTECTOMY; Surgeon: Jevon Key DO; Location: [facility] MAIN OR; Service: General; Laterality: [...] 09/14/12949 Date of Service: 09/14/12949 Status: Signed Parliamentary Archivist: Yu Ambrose RN (Registered Nurse) Discharge teaching [...] hospitalization. Yu Ambrose RN 09/14/2012 9:50 AM Mariusz , Augustine Márquez MD - 09/14/2012 9:11 AM PDT Progress Notes by Augustine Mukherjee MD at 09/14/12910 Author: Augustine Mukherjee MD Service: Hospitalist Author Type: Physician Filed: 09/14/12917 Date of Service: 09/14/12910 Status: Signed Parliamentary Archivist: Augustine Mukherjee MD (Physician) [facility] Service: Hospitalist Progress Note Norah Gr 56 y.o. [id number] 410/[id number] male [facility] Day: LOS: 3 days SUBJECTIVE Patient Summary: Patient is a 55-year-old male with past medical history of DM type 2, HTN, HLD, Atrial Fib rillation who was admitted due to RUQ abdomina pain by Dr. Key. An ultrasound was done w [facility] revealed cholelithiasis and he underwent cholecystectomy. [...] Date of Service: 09/13/12 1602 Status: Signed Parliamentary Archivist: Augustine Mukherjee MD (Physician) [facility] Service: Hospitalist Progress Note Norah Gr 56 y.o. [id number] 410/[id number] male [facility] Day: LOS: 2 days SUBJECTIVE Patient Summary: Patient is a 55-year-old male with past medical history of DM type 2, HTN, HLD, Atrial Fib rillation who was admitted due to RUQ abdomina pain by Dr. Key. An ultrasound was done w [facility] revealed cholelithiasis and he underwent [facility]olecystectomy. [facility] BP remained elevated which [...] stable and he has been tolerating diet. Appe afshin is improving. Remained afebrile. Scheduled Medications ARIPiprazole [...] Pain: S/P Laparoscopic cholecystectomy POD # 1. Tai, Dr. Key is following as primary services. [...] Case Management by QUINN Wharton at 09/13/12 9984 Author: QUINN Wharton Service: (none) Author Type: Director Advertising Filed: 09/13/12 1528 Date of Service: 09/13/12 1513 Status: Signed Parliamentary Archivist: QUINN Wharton (Director Advertising) CM met with pt to introduce community resources and support. Pt reported " I want to get ou t of here. Where is the MD to dc me?" CM and pt's MD contacted pt's MD to f/u with pt. Per Emre Mukherjee, pt will dc on 09/14/2012. Continuum of care as needed and plan for dc. evon Campo DO - 09/13/2012 12:45 PM PDTFormatting of this note might be different from guillermina sarmiento. Progress Notes by Jevon Key DO at 09/13/12 1245 Author: Jevon Key DO Service: General Surgery Author Type: Physician Filed: 09/13/12 1248 Date of Service: 09/13/12 1245 Status: Signed Parliamentary Archivist: Jevon Key DO (Physician) [facility] Service: General Surgery Progress Note Hospital Day: LOS: 2 days Post-Op Day: 1 Day Post-Op Chief complaint: Abdominal pain SUBJECTIVE Events Overnight: Has been very hypertensive overnight. BP remains poorly controlled. Pain controlled well. No nausea or vomiting. Scheduled Medications ARIPiprazole 10 mg Oral Daily atenolol 200 mg Oral Nightly cefOXitin (MEFOXIN) IVPB 2 g Intravenous Q6H cefOXitin 2 g Intravenous Lubrication Worker to OR clopidogrel 75 mg Oral Daily [...] controlled. FU next Monday Jevon Key [address] [place], [place] [address] teaching. Disposition: Stable Code Status: Full Code JEVON KEY DO 09/13/2012 onversion Transa ction, Provider Unknown - 09/12/2012 2:26 PM PDT Progress Notes by Doris Laureano RN at 09/12/121425 Author: Doris Laureano RN Service: (none) Author Type: Registered Nurse Filed: 09/12/121427 Date of Service: 09/12/121425 Status: Signed Parliamentary Archivist: Doris Laureano RN (Registered Nurse) Dressing on arm and lt upper back changed with telfa and breathable tape; small amt bloody, thin yellowish drainage on old dressing; will report to rn; pt aware to make sure dressing is getting changed at [facility] Transaction, Provider Unknown - 09/11/2012 10:40 PM PDT Progress Notes by Pepe Xie RPH at 09/11/122239 Author: Pepe Xie RPH Service: (none) Author Type: Pharmacist Filed: 09/11/122239 Date of Service: 09/11/122239 Status: Signed Parliamentary Archivist: Pepe Xie RPH (Pharmacist) Note ccl 82.6ml/min meds reviewed Pharmacy will follow [facility] [address] Transaction, Provider Unknown - 09/11/2012 10:38 PM PDT Progress Notes by Pepe Xie RPH at 09/11/122237 Author: Pepe Xie RPH Service: (none) Author Type: Pharmacist Filed: 09/11/122237 Date of Service: 09/11/122237 Status: Signed Parliamentary Archivist: Pepe Xie RPH (Pharmacist) Note ccl 82.6ml/min meds reviewed Pharmacy will follow [facility] 2237 docume nted in this encounter H&P Notes Jevon Key DO - 09/12/2012 11:14 AM PDT Interval H&P Note by Jevon Key DO at 09/12/121113 Author: Jevon Key DO Service: General Surgery Author Type: Physician Filed: 09/12/12 1115 Date of Service: 09/12/121113 Status: Signed Parliamentary Archivist: Jevon Key DO (Physician) [facility] Service: General Surgery Pre-Operative History & Physical Interval Update He presented to the ER last night with intractable nausea, vomiting, and RUQ pain. He was admitted overnight for pain control. OR planned today rather than next Monday. JEVON KEY DO 09/12/2012 Source Note Author: Jevon Key DO Service: (none) Author Type: Physician Filed: 09/06/12 1511 Date of Service: 09/06/121509 Status: Signed Parliamentary Archivist: Jevon Key DO (Physician) Subjective: Patient ID: [...] reviewed his chart and pertinent laboratory values. unnJevon womack DO - 09/06/2012 3:10 PM PDT H&P (View-Only) by Jevon Key DO at 09/06/121509 Author: Jevon Key DO Service: (none) Author Type: Physician Filed: 09/06/121510 Date of Service: 09/06/121509 Status: Signed Parliamentary Archivist: Jevon Key DO (Physician) Subjective: Patient ID: [...] per tablet Take 1 tablet by mouth jeovanny altamirano. Current Facility-Administered Medications on File Prior to [...] 09/13/121833 Date of Service: 09/12/122044 Status: Signed Parliamentary Archivist: Jorge Oviedo MD (Physician) Related Notes: Original Note by Jorge Oviedo MD (Physician) filed at 09/12/122113 [facility] Service: Hospitalist Initial Consult Note Date [...] g Intravenous Q6H cefOXitin 2 g Intravenous Lubrication Worker to OR clopidogrel 75 mg Oral Daily [...] Narrative Lives in [facility], IADL, full code PHYSICAL EXAM Vital Signs: [...] 09/12/2012 CT Abdomen & Pelvis with contrast [[id number]] Status: Final result Study Result NORAH GR [...] recognition system. The possibility of "sound alike" cadd operator errors, addition and/or deletions may occur. If there is any question about this report please contact the originating radiologist. Abdomen, Gallbladder [[id number]] Status: Final result Study Result CLINICAL HISTORY: [...] ciated with biliary dysfunction or intermittent symptoms. [facility] OPERATIVE NOTE SURGERY DEPT Name: Norah Gr [...] Status: Full Code Primary Care Physician: EDIN GUTIÉRREZ Thank you for allowing me to participate [...] 09/11/122253 Date of Service: 09/11/122253 Status: Signed Parliamentary Archivist: Carlos Morfin RN (Registered Nurse) Pt eating soup at bedside. Carlos Morfin RN 09/11/122253 olvia Ramírez MD - 09/11/2012 7:34 PM PDTFormatting of this note might be different from the o riginal. ED Provider Notes by Xander Ramírez MD at 09/11/121933 Author: Xander Ramírez MD Service: (none) Author Type: Physician Filed: 09/11/122249 Date of Service: 09/11/121933 Status: Addendum Parliamentary Archivist: Xander Ramírez MD (Physician) Related Notes: Original Note by Xander Ramírez MD (Physician) filed at 09/11/12 5451 [facility] Department of Emergency Medicine History of [...] reviewed (Using the electronic record system of [facility].) Laboratory Evaluation Results Procedure Component Value Ref Range Date/Time POC clinitek 10 [[id number]] (Abnormal) Collected:09/11/122141 Order Status:Completed Updated:09/11/122146 Color, UA [...] WBC, UA NEGATIVE NEGATIVE Complete Metabolic Panel [[id number]] (Abnormal) Collected:09/11/121856 Order Status:Completed Updated:09/11/122000 Specimen Information:Blood SODIUM 144 [...] 65 U/L EGFR >60 >60 mL/min/1.73m2 Lipase [[id number]] Collected:09/11/121856 Order Status:Completed Updated:09/11/122000 Specimen Information:Blood LIPASE 125 73 - 393 U/L CBC w Auto Diff [[id number]] (Abnormal) Collected:09/11/121856 Order Status:Completed Updated:09/11/121943 Specimen Information:Blood [...] with its contents. MD Xander Pineda MD 09/11/122247 Xander Ramírez MD 09/11/122249 onversion Transacti on, Provider Unknown - 09/11/2012 7:05 PM PDTFormatting of this note might be different fro m the original. ED Notes by Elmo Patton RN at 09/11/121904 Author: Elmo Patton RN Service: (none) Author Type: Registered Nurse Filed: 09/11/121905 Date of Service: 09/11/121904 Status: Signed Parliamentary Archivist: Elmo Patton RN (Registered Nurse) Pt has appt with [facility] scheduled for to remove GB. Has not had any hydrocodone toda y, has had N+V+D Elmo Patton RN 09/11/12 1906 docume nted in this encounter Miscellaneous Notes Op Note - Jevon Key DO - 09/12/2012 3:18 PM PDT Op Note by Jevon Key DO at 09/12/12 4438 Author: Jevon Key DO Service: General Surgery Author Type: Physician Filed: 09/12/12 1520 Date of Service: 09/12/12 1518 Status: Signed Parliamentary Archivist: Jevon Key DO (Physician) [facility] OPERATIVE NOTE SURGERY DEPT Name: Norah Gr [...] The patient was extubated and moved to [facility] under the direction of Anesthesia. Disposition: Pt [...] [place], | | | | | | [place] [address] | | | | | | [phone] | | | | | | | [...] | | | | | ESTER PARKER ([id number]) on | | | | | | 09/14/2012 12:28:21 AM | | | | + + + + + + + + | Specimen | + + | | + + + + + | Narrative | Performed At | + + + | [facility] | EXTERNAL LAB [...] | + + | Joaquin Ramos - 09/28/2018 3:24 PM PDT CLINICAL HISTORY: [...]
--- OUTSIDE RECORDS SUMMARY | ~2019-10-12 | XMS | Encounter Summary ---
Demographics + + + | Address | [address] | | | [place] [address] | + + + | Home Phone [...] + | Sammi Kohler | ECON | [place] [address] | | + + + + + Care Team Providers + +------+ + | Care Driver License Reviewing Officer Name | Role | Phone | + +------+ + | Mireya Pack NP | PCP | | + +------+ + Reason for Visit + + + | Reason | Comments | + + + | Chest Pain | | + + + | Syncope | | + + + Encounter Details +--------+ + + + + | Date | Type | Department | Care Team | Description | +--------+ + + + + | 12/12/ | Emergency | [facility] | Yaakov Bridges DO | Unstable angina | | 2019 - | | [facility] [place] | [address] | (HCC) (Primary Dx); | | | | CLINICAL DECISION | [address], | Essential | | 12/13/ | | [address] | [place] [address] | hypertension; | | 2019 | | [place], [place] | [phone] | Elevated troponin; | | | | [address] | | Hypertensive urgency | | | | [phone] | Niles Dhaliwal MD | | | | | | [address] | | | | | | [place] [address] | | | | | | [phone] | | | | | | | | | | | | Jareth Curiel MD | | | | | | [address] | | | | | | [place] [address] | | | | | | [phone] | | | | | | | [...] + + + | Blood Pressure | 133/70 | 12/13/2018 7:54 AM | | | | | PST | | + + + + + | Pulse | 63 | 12/13/2018 7:54 AM | | | | | PST | | + + + + + | Temperature | 36.6 C (97.9 F) | 12/13/2018 7:54 AM | | | | | PST | | + + + + + | Respiratory Rate | 18 | 12/13/2018 7:54 AM | | | | | PST | | + + + + + | Oxygen Saturation | 96% | 12/13/2018 7:54 AM | | | | | PST | | + + + + + | Inhaled Oxygen | - | - | | | Concentration | | | | + + + + + | Weight | 95.3 kg (210 lb) | 12/13/2018 12:00 AM | | | | | PST | | + + + + + | Height | 180.3 cm (5' 11") | 12/13/2018 12:00 AM | | | | | PST | | + + + + + | Body Mass Index | 29.29 | 12/13/2018 12:00 AM | | | | | PST [...] documented as of this encounter Discharge Summaries Jareth Curiel MD - 12/13/2018 8:56 AM PST Patient: Norah Gr : 1955 Date of Admission: 12/12/2018 Date of Discharge: 12/13/2018 Discharging Provider: Jareth Curiel MD Discharge Diagnoses: Principal Problem: Other chest pain Active Problems: Diabetes mellitus, type 2 Paroxysmal atrial fibrillation Hyperlipidemia Chronic back pain Syncope WARD (obstructive sleep apnea) COPD (chronic obstructive pulmonary disease) Anxiety Depression Hypertension Resolved Problems: * No resolved hospital problems. * Procedures Performed: None Chief Complaint: Chest pain Hospital Course: 62 y.o. male with significant past medical history of mild CAD, COPD, WARD, develpmental del ay, HTN, DM2, paroxysmal Afib who presents with complaints of chest pressure. The patient kelley s been to the hospital many times recently for similar complaints. He states he has had some chest pressure since last night while watching tv. The pain has come and gone, but is locat ed in the center of the chest. The pain appears to be reproducible. He states he thinks he h as missed doses of his blood prsesure medications and things his last dose of eliquis was a few days ago. It is not clear why he is missing doses. The patient was evaluated in the ED. EKG did not demonstrate significant signs of ischemia. Vitals demonstrates sbp > 200. The pa aki was given clondine with improvement. Troponin initially was negative but repeat tropon in is 0.041. Chest xray was negative. Due to change in troponin patient was initiated on hep vicki infusion and admitted for further workup. Serial troponins were drawn which were negati ve. His chest pain persisted in the morning and was quite reproducible with light palpation. Suspect it is MSK in etiology vs less likely GERD. Given negative cardiac enzymes a cardiac etiology it quite unlikely. His blood pressure was well controlled on his home medications which were continued in the hospital. Given this we double checked his bubble packs to jayla e that he was receiving the same medications we were giving him here which was indeed the ca se. I suspected perhaps medication non-compliance however he reported to me he was taking hi s home meds. In any rate, I advised him to follow up with his PCP within 1 week on discharge for general hospital follow up. He denied any fevers, chills, shortness of breath, abdomina l pain on discharge. No new meds or adjustments in meds on discharge. Discharge Exam and Data: Vital Signs: BP 133/70 | Pulse 63 | Temp 36.6 C (97.9 F) (Oral) | Resp 18 | Ht 1.803 m (5' 11") | Wt 95.3 kg (210 lb) | SpO2 96% | BMI 29.29 kg/m GEN: elderly male in no apparent distress HEAD: normocephalic EYES: no conjunctival icterus or injection ENT: MMM, clear oropharynx NECK: supple, no cervical lymphadenpathy CV: RR at ~70 bpm, normal S1/S2, no murmurs RESP: CTAB without crackles or wheezes ABD: soft, NT/ND, BS+, no obvious masses/organomegaly SKIN: warm and dry, no rashes MSK: normal muscle bulk and tone PSYCH: mood is good, affect congruent NEURO: grossly non-focal Recent Labs BMP 140 110* 20 181* 3.8 25 0.8 CaMgPhos 8.8 2.0 LFT 23 95 23 2.8* CBC 9.68 13.5 195 40.9 Coag 38* 1.0 Last labs from current encounter as of 12/13/18-08:57 Recent Radiology Results CXR - 12/12/18 - Impression: No active disease. Outstanding Issues: None Discharge Information: Follow up: Mireya Pack NP [address] [facility] [id number] In 1 week Hospital follow up Active Orders Diet Diet fat and cholesterol modified; Effective Now Discharge Medications Unchanged Medications Details accu-chek multiclix Misc 1 [...] 1 tablet by mouth Daily. aka: ABILIFY aspirin 81 MG tablet Take 1 tablet by mouth Daily. Blood Glucose Monitor System w/Device Kit Dispense [...] daily aka: BD PEN NEEDLE KYAW U/F Lancets Misc. Misc For blood sugar checks 4 times daily lisinopril 10 mg tablet Take 2 tablets by mouth Daily. aka: PRINIVIL, ZESTRIL metFORMIN 500 mg tablet Take 1 tablet by mouth 2 times daily (with breakfast & dinner). aka: GLUCOPHAGE NIFEdipine 60 MG 24 hr tablet Take 1 tablet by mouth Daily. aka: ADALAT CC NOVOLOG FLEXPEN 100 units/mL injection pen Generic drug: insulin aspart Inject 5 Units under the skin 3 times daily (before meals). Plus sliding scale pravastatin 40 MG tablet Take 80 mg by mouth nightly. aka: PRAVACHOL tamsulosin 0.4 mg Caps Take 1 capsule by mouth 2 times daily. aka: FLOMAX Disposition: home Condition: Fair Code Status: Full Code Discharge took greater than 30 minutes, to include final examination, discussion of admissi on, and preparation of prescriptions, instructions for on-going care, follow-up and document ation of discharge summary. Jareth Curiel MD 8:57 12/13/2018 documented in this encounter Discharge Instructions Instructions Jareth Curiel MD - 12/13/2018Take your meds as prescribed. Follow up with you r primary care physician within the next week. AttachmentsThe following attachments cannot be sent through Care Everywhere.High Blood Pres sure (Hypertension), Discharge Instructions ([place])documented in this encounter Medications at Time of [...] + + +---------+ + + | Lancets Misc. MISC | For blood sugar | 200 [...] by mouth | | 0 | | 11/20/201 | | (PRAVACHOL) 40 MG | nightly. | | | | 9 | | tablet | | | | | | + + + +---------+ + + | tamsulosin | Take 1 capsule by | 60 | 4 | 11/08/19 | | | (FLOMAX) 0.4 mg CAPS | mouth 2 times daily. | capsule | | 19 | 0 | + + + +---------+ + + documented as of this encounter Progress Notes Elmo Ramesh, [facility] - 12/12/2018 5:38 PM PSTRx Admission Medication History Note I have reviewed the medication history for appropriate doses obtained by: Pharmacy Medica tion History Clinical Medical Assistant After reviewing the home medication list : I agree with the home medications list. Confirmed PEST CONTROL WORKER medications with patient and insurance fill history. Adjusted PEST CONTROL WORKER medications according to the missile and missile checkout technician note below. - fenofibrate removed. Patient reports not filling in months, and has not taken in months. Recent fill for October that patient does not recognize. - taking insulin novolog 5 units TID before meals. Humalog removed. Please Review and Order Home Medications as necessary. Thanks ELMO RAMESH, [facility] 12/12/2018 17:36 Rx Medication History Clinical Medical Assistant Note Patients Preferred Pharmacy has been updated in EPIC: yes Patients Allergies have been updated and marked as reviewed: yes Nitroglycerin and Vitamin b12 The following changes were made to the allergy list (if any): n/a Medication History provided by: Patient, Outside Pharmacy and [employer] Info Follow-up Issues: None- Pending Pharmacist Review High Risk Medications (dual source verification needed): Insulin Changes made to the medication list include: ADDED: Novolog flexpen u-100: 5 units TID plus sliding scale. FLAGGED FOR DELETION: Humalog flexpen- pt reported takes novolog Fenofibrate: pt reported has not taken in the past couple of months. Stated he hasn't gotte n it filled and unsure of still should be taking, Reliability of information obtained: RELIABLE Additional Comments: n/a Medication history has been completed: Awaiting Pharmacist Final Review Marlyn Pfeiffer CPhT 12/12/2018 15:44 documented in t his encounter H&P Notes Niles Dhaliwal MD - 12/12/2018 2:11 PM PSTFormatting of this note might be different fro m the original. [facility] Service: Hospitalist Admission History & Physical Pt: Norah Gr AGE/SEX: 62 y.o. male ROOM: [id number] PCP: Mireya Pack NP : 1955 TODAY'S DATE: 12/12/2018 Date of Admission: 12/12/2018 Chief Complaint: Chest Pain and Syncope History of Present Illness: The patient is a 62 y.o. male with significant past medical history of mild CAD, COPD, WARD, develpmental delay, HTN, DM2, paroxysmal Afib who presents with complaints of chest pressur e. The patient has been to the hospital many times recently for similar complaints. He state s he has had some chest pressure since last night while watching tv. The pain has come and g one, but is located in the center of the chest. The pain appears to be reproducible. He stat es he thinks he has missed doses of his blood prsesure medications and things his last dose of eliquis was a few days ago. It is not clear why he is missing doses. The patient was evaluated in the ED. EKG did not demonstrate significant signs of ischemia. Vitals demonstrates sbp > 200. The patient was given clondine with improvement. Troponin in itially was negative but repeat troponin is 0.041. Chest xray was negative. Due to change in troponin patient was initiated on heparin infusion and admitted for furthe r workup. 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 Obesity, Class I, BMI 30-34.9 07/08/2013 WARD (obstructive sleep apnea) 08/11/2012 does not use CPAP because of the noise Other chronic pain Renal failure Stroke (HCC) TIA (transient ischemic attack) Unspecified visual disturbance reading glasses PSHx: Past Surgical History: Procedure Laterality Date ABDOMEN SURGERY CHOLECYSTECTOMY CHOLECYSTECTOMY, LAPAROSCOPIC 09/12/2012 Procedure: LAPAROSCOPIC - CHOLECYSTECTOMY; Surgeon: Jevon Vargas DO; Location: [facility] MAIN OR; Service: General; Laterality: N/A; COLONOSCOPY COLONOSCOPY 03/04/2013 Procedure: COLONOSCOPY; Surgeon: Howie Gibson MD; Location: [facility] ENDOSCOPY; Service: Gastroen terology; Laterality: N/A; HERNIA REPAIR 07/03/2013 Procedure: LAPAROSCOPIC - HERNIA - INCISIONAL; Surgeon: Jevon Vargas DO; Location: [facility] MAIN OR; Service: General; Laterality: N/A; KNEE SURGERY rt knee, patella LEG SURGERY LLE OTHER SURGICAL HISTORY UNLISTED PROCEDURE ARTHROSCOPY OTHER SURGICAL HISTORY Left 05/05/2014 SKIN LESION EXCISION - Procedure: EXCISION - LESION - FROZEN SECTION; Surgeon: Sy murcia MD; Location: [facility] MAIN OR; Service: Plastics; Laterality: Left; forearm SKIN BIOPSY SKIN CANCER EXCISION Left 10/10/2012 Procedure: EXCISION - SKIN CANCER; Surgeon: Sy Fierro MD; Location: [facility] MAIN OR; Service: Plastics; Laterality: Left; upper arm and upper back w/frozen section UPPER GASTROINTESTINAL ENDOSCOPY UPPER GASTROINTESTINAL ENDOSCOPY 03/03/2013 Procedure: ESOPHAGOGASTRODUODENOSCOPY; Surgeon: Howie Gibson MD; Location: [facility] ENDOSCOPY; Se rvice: Gastroenterology; Laterality: N/A; Prior To admission Meds: Prior to Admission medications Medication Sig Start Date End Date Taking? Authorizing Provider acetaminophen (TYLENOL) 325 mg tablet Take 2 tablets by mouth every 4 hours as needed for P ain (or fever >= 38.6 C (101.5 F)). 10/16/18 Norah Duron MD apixaban (ELIQUIS) 5 mg tablet Take 1 tablet by mouth 2 times daily. 11/07/18 Mireya artis NP ARIPiprazole (ABILIFY) 5 mg tablet Take 1 tablet by mouth Daily. 11/07/18 Mireya Pack NP aspirin 81 MG tablet Take 1 tablet by mouth Daily. 11/07/18 Mireya Pack NP Blood Glucose Monitoring Suppl (BLOOD GLUCOSE MONITOR SYSTEM) w/Device KIT Dispense brand p er patient preference 11/07/18 Mireya Pack NP budesonide-formoterol (SYMBICORT) 160-4.5 mcg/puff inhaler Inhale 2 puffs into the lungs 2 times daily. 11/01/18 11/01/19 Mireya Pack NP carvedilol (COREG) 12.5 mg tablet Take 1 tablet by mouth 2 times daily (with breakfast & di nner). 11/07/18 Mireya Pack NP fenofibrate 160 mg tablet Take 1 tablet by mouth Daily. 11/07/18 Mireya Pack NP finasteride (PROSCAR) 5 mg tablet Take 1 tablet by mouth Daily. 11/07/18 Mireya Pack NP Glucose Blood (BLOOD GLUCOSE TEST STRIPS) STRP For blood sugar testing 4 times daily 9 Mireya Pack NP hydrALAZINE (APRESOLINE) 25 mg tablet Take 1 tablet by mouth 2 times daily. 11/07/18 Mireya Pack NP insulin detemir (LEVEMIR FLEXTOUCH) 100 units/mL injection (pen) Inject 45 Units under the skin nightly. 11/01/18 Mireya Pack NP insulin lispro (HUMALOG KWIKPEN) 100 units/mL injection (pen) Inject 5 Units under the skin 3 times daily (before meals). Plus sliding scale 11/07/18 Mireya Pack NP Insulin Pen Needle (BD PEN NEEDLE KYAW U/F) 32G X 4 MM MISC For insulin administration 4 ti mes daily 11/07/18 Mireya Pack NP Lancets (ACCU-CHEK MULTICLIX) MISC 1 each by Other route 4 times daily. 11/01/18 Mireya malave NP Lancets Misc. MISC For blood sugar checks 4 times daily 11/01/18 Mireya Pack NP lisinopril (PRINIVIL, ZESTRIL) 10 mg tablet Take 2 tablets by mouth Daily. 11/07/18 Mireya Pack NP metFORMIN (GLUCOPHAGE) 500 mg tablet Take 1 tablet by mouth 2 times daily (with breakfast & dinner). 11/07/18 Mireya Pack NP NIFEdipine (ADALAT CC) 60 MG 24 hr tablet Take 1 tablet by mouth Daily. 11/07/18 Mireya malave NP pravastatin (PRAVACHOL) 80 MG tablet Take 1 tablet by mouth nightly. 11/07/18 Mireya artis NP tamsulosin (FLOMAX) 0.4 mg CAPS Take 1 capsule by mouth 2 times daily. 11/07/18 Mireya ruvalcaba NP Medications scheduled: heparin 2,000-8,000 Units Intravenous Once Allergies: Allergies Allergen Reactions Nitroglycerin Swelling Tongue swelling Vitamin B12 Rash Rash Family Hx: Family History Problem Relation Age of Onset Heart disease Father Heart disease Sister Diabetes, NIDDM Sister Other (see comment) Brother Heart Problems Social Hx: Social History Socioeconomic History Marital status: Spouse [...] Lives alone x 1 wk, moved from [facility], , 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 2 falls in the last 6 months. Review of Symptoms: Constitutional: No Fever,No chills, No diaphoresis, + appetite change, No fatigue, No weig ht loss. HENT: No Hearing loss,No ear pain,No nosebleeds,No congestion,No neck pain or stiffness, No dental problem,No tinnitus, No ear discharge Eyes: No Photophobia,No pain, No discharge, No redness, No visual disturbances. Respiratory: No cough,+ chest tightness, No shortness of breath, No wheezing. Cardiovascular: + Chest pain,No palpitations, No leg swelling. Gastrointestinal: No Nausea, No vomiting, No abdominal pain Genitourinary: No Dysuria, No frequency, No hematuria, No flank pain, No difficulty urinati ng. Musculoskeletal: No Back pain, No joint swelling, No arthralgias, No gait problems. Skin: No pallor, No rash Neurological: No Dizziness, No tremors, No seizures, No syncope, No weakness, No light-head edness,No numbness, No headaches. Hematological: No lymphadenopathy. Does not bruise/bleed easily. Psychiatric/Behavioral: No Suicidal ideas, No hallucinations Objective: Vital Signs: BP 140/64 | Pulse 59 | Temp 36.7 C (98.1 F) (Oral) | Resp 17 | SpO2 97% No intake/output data recorded. Physical Exam: Constitutional: Oriented to person, place, and time. appears well-developed and well-nouris hed. HEENT: Head: Normocephalic and atraumatic. Nose: Nose normal. Mouth/Throat: Oropharynx is clear and moist. Eyes: Conjunctivae and EOM are normal. Neck: Normal range of motion. Neck supple. No JVD present. Cardiovascular: Normal rate, regular rhythm. Exam reveals no appreciated gallop or frictio n rub. No murmur heard. Pulmonary/Chest: Effort normal and breath sounds normal. No stridor. No respiratory distres s. + reproducible chest tenderness. Abdominal: Soft. Bowel sounds are normal. exhibits no distension and no mass. There is no t enderness. There is no rebound and no guarding. Extremities/Musculoskeletal: Normal range of motion .exhibits no tenderness. exhibits no e leida. Neurological: Alert and oriented to person, place, and time. No gross cranial nerve defici t. Exhibits normal muscle tone as would be expected for the patient. Skin: Skin is warm and dry. No rash noted. No erythema. No pallor. Psychiatric: Has a normal mood and affect for situation. Data: Labs: Recent Labs Lab 12/12/18 0933 WBC 9.80 HGB 15.3 HCT 45.1 PLT 234 NA 141 K 4.2 CL 107 CO2 25 BUN 13 EGFR >60 CALCIUM 9.6 ANIONGAP 13 AST 29 ALT 22 No results for input(s): TROPONINT, CKMB in the last 168 hours. Invalid input(s): CKTOTAL, TROPONINI, CKMBINDEX, PCOTNI No results for input(s): CLARITYU, LEUKOCYTESUR, UROBILINOGEN, PHUR, BLOODU, KETONES, BILIR UBINUR, GLUCOSEU, RBCU, BACTERIA, COMU in the last 168 hours. Invalid input(s): UCOL, SPECGRAV, NITRITE, UPRO Microbiology Results (72 hrs) No results found for the last 72 hours. RADIOLOGY: Recent Results (from the past 360 hour(s)) XR Thoracic Spine 3 Vw Narrative THORACIC SPINE THREE VIEWS CLINICAL INFORMATION: Multiple falls. Pain. Palpitations. COMPARISON: XR THORACIC SPINE 3 VIEW (12/04/2014); XR THORACIC SPINE 2 VIEW (09/15/2014); XR THORACIC SPINE 2 VIEW (10/06/2013); FINDINGS: There are 12 rib-bearing thoracic vertebrae. Thoracic spine alignment is maintained. No acute fracture identified. The pedicles appear intact. Findings of DISH are again noted throughout the thoracic spine. The visualized lungs are clear. Impression No acute osseous abnormality. Findings of DISH throughout the thoracic spine. Signed by: Irina Gómez Casey Sign Date/Time: 12/01/2018 10:02 AM XR Chest PA and Lateral Narrative CHEST PA AND LATERAL CLINICAL INFORMATION: Palpitations. COMPARISON: XR CHEST 1 VIEW (10/16/2018); XR CHEST 1 VIEW (10/13/2018); XR CHEST PA AND LATERAL (10/11/2018); CTA CHEST PULMONARY EMBOLISM W CONTRAST (09/21/2018); FINDINGS: Unchanged prominent epicardial fat pad. The lungs are clear. Heart size and pulmonary vasculature within normal limits. No pneumothorax or pleural effusion. Stable chronic osseous findings, to include findings of DISH throughout the thoracic spine. Impression Stable examination without evidence of acute cardiopulmonary disease. Signed by: Irina Gómez Casey Sign Date/Time: 12/01/2018 10:[address] Head Cervical Spine wo Contrast Narrative CT HEAD WITHOUT CONTRAST; CT CERVICAL SPINE WITHOUT CONTRAST CLINICAL INFORMATION: Syncope, multiple falls, unknown if hit head. COMPARISON: 10/10/2018 PROCEDURE: CT Head: Axial non-contrast images were obtained through the head. CT Cervical Spine: Thin section noncontrast axial images were obtained through the cervical spine. Multiplanar reformations were obtained from the acquisition data. At least one of the following CT dose optimization techniques were used: Automated exposure control; Adjustment of mA and/or kV according to patient size; Use of iterative reconstruction technique. FINDINGS: CT Head: Brain: No intracranial hemorrhage, midline shift or pathologic mass effect. No cerebral edema, mass lesion, or evidence of infarct. Ventricles and extra-axial fluid spaces: Normal. Paranasal sinuses and mastoid air cells: Paranasal sinus disease with complete opacification of the frontal sinuses. Mild partial opacification of the ethmoid sinuses. Calvarium and extracranial soft tissue: Normal. Orbits: Imaged portions of the orbits are normal. CT Cervical Spine: Alignment: Dextroconvex curvature of the cervical spine Vertebrae: Mild degenerative changes anterior arch of C1 with the dens. Negative for cervical spine fracture. Cervical disc levels: Mild disc space narrowing with mild endplate spurring at C3-4 and to a lesser extent C5-6 and C6-7. Mild to moderate degenerative facet disease, greatest at C 3 4, C4-5, and C5-6 on the left side. Paraspinal soft tissues: No evidence of acute paraspinal soft tissue abnormality. Impression 1. No acute intracranial process. 2. Negative for cervical spine fracture. Signed by: Staci Ramírez Chet Sign Date/Time: 12/01/2018 11:29 AM XR Chest PA and Lateral Narrative CHEST PA AND LATERAL CLINICAL INFORMATION: Chest pain and syncope. COMPARISON: XR CHEST PA AND LATERAL (12/01/2018); XR CHEST 1 VIEW (10/16/2018); XR CHEST 1 VIEW (10/13/2018); FINDINGS: The heart size is normal. I see no infiltrates or effusions. Technical limitation due to patient body habitus. Mild spondylotic changes of the spine Impression No active disease. Signed by: Irina Gr Shawn Sign Date/Time: 12/12/2018 11:31 AM EKG: no acute ischemic changes noted Problem List: Principal Problem: Other chest pain Active Problems: Diabetes mellitus, type 2 Paroxysmal atrial fibrillation Hyperlipidemia Chronic back pain Syncope WARD (obstructive sleep apnea) COPD (chronic obstructive pulmonary disease) Anxiety Depression Hypertension Assessment and Plan: Chest pain - likely msk in nature, however troponin has trended up. Could be due to hypertensive urgen cy. - continue to trend troponin. There has been a very mild bump. Will continue with IV hepari n at this time. If troponin continues to increase will consult cardiology. - telemetry - continue with sublingual nitro prn - continue with pain control - 10/13/18 echocardiogram demonstrates Normal size left ventricle. There is moderate increased left ventricular wall thickne ss. The left ventricular ejection fraction is 65%. There is normal left ventricular wa ll motion. Normal size right ventricle. Normal right ventricular systolic function. - underwent stress testing 10/16/17 which demonstrates IMPRESSION: 1. No reversible defects to suggest acute left ventricular ischemia. 2. Left ventricular stress ejection fraction is calculated at 62%. Syncope - unclear etiology. Patient not a good historian - will continue with telemetry - has had prior echo and ct head which did not demonstrate the cause - fall precautions - ortho statics htn urgency - not well controlled. Patient non compliant - will restart home medications and monitor Paroxysmal Afib - will hold eliquis for now and continue heparin secondary to above. If ruled out will rest art eliquis and stop heparin gtt DM2 - continue with sliding scale and lantus Anxiety - continue abilify GI/DVT prophylaxis Patient's old records and labs were reviewed as available in detail and summarized when nee ded. Active comorbid conditions include: - hypertension - PVD - COPD - sleep apnea - obesity Code Status: Prior Primary Care Physician: NORM White MD 12/12/2018 14:11 Dictation software, Nutshell, may have been used which may contain error for similar sounding words even after review. Personal communication requested for any clarification. Portions of this chart may have been copied from previous notes for continuity of care.Elec tronically signed by Niles Dhaliwal MD at 12/12/2018 4:40 PM PSTdocumented in this encount er ED Notes Yaakov Bridges, - 12/12/2018 9:55 AM PST [facility] Department of Emergency Medicine 12/12/2018 9:55 History of Present Illness Patient Identification Norah Gr is a 63 y.o. male. Patient information was obtained from patient. History/Exam limitations: none. Patient presented to the Emergency Department by: by private vehicle Primary care physician: Mireya Pack NP Chief Complaint Chief Complaint Patient presents with Chest Pain Syncope Norah Gr is a 63 y.o. male patient who presents to the Emergency Department with primary subjective complaint of chest pain. Onset of symptoms was last night while he was watching TV, with a waxing and waning course since that time. The patient describes these symptoms a s "heavy chest", sharp pain, located central chest, and rated as moderate. The patient repor ts nothing worsens symptoms, and nothing relieves symptoms. Patient additionally describes d ifficulty breathing, syncope associated with primary complaint. Pt denies current or recent fever/chills, headache, facial pain, rhinorrhea, sore throat, abdominal pain, N/V, appetite changes, bowel or bladder habit changes, skin rash, gait abnormalities, myalgias/arthralgia s, lymphadenopathy, or non-traumatic bruising. Patient denies acute paresthesias but descr ibes chronic paresthesias to his left leg, The patient denies history of immunodeficiency. Past medical history significant for PE, A. fib, COPD, diabetes mellitus, elevated cholester ol, hypertension, obesity with obstructive sleep apnea, and prior stroke. Patient takes Coum derrick for his atrial fibrillation. Patient reports he was sitting on the couch, when he sudde nly lost consciousness and he woke up around 10 yards from where he originally was. Patient has had similar symptoms previously. Patient has been recently evaluated by Dr. Prather for this or a similar complaint. 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 Obesity, Class I, BMI 30-34.9 07/08/2013 WARD (obstructive sleep apnea) 08/11/2012 does not use CPAP because of the noise Other chronic pain Renal failure Stroke (HCC) TIA (transient ischemic attack) Unspecified visual disturbance reading glasses Past Surgical History: Procedure Laterality Date ABDOMEN SURGERY CHOLECYSTECTOMY CHOLECYSTECTOMY, LAPAROSCOPIC 09/12/2012 Procedure: LAPAROSCOPIC - CHOLECYSTECTOMY; Surgeon: Jevon Vargas DO; Location: [facility] MAIN OR; Service: General; Laterality: N/A; COLONOSCOPY COLONOSCOPY 03/04/2013 Procedure: COLONOSCOPY; Surgeon: Howie Gibson MD; Location: [facility] ENDOSCOPY; Service: Gastroen terology; Laterality: N/A; HERNIA REPAIR 07/03/2013 Procedure: LAPAROSCOPIC - HERNIA - INCISIONAL; Surgeon: Jeovn Vargas DO; Location: [facility] MAIN OR; Service: General; Laterality: N/A; KNEE SURGERY rt knee, patella LEG SURGERY LLE OTHER SURGICAL HISTORY UNLISTED PROCEDURE ARTHROSCOPY OTHER SURGICAL HISTORY Left 05/05/2014 SKIN LESION EXCISION - Procedure: EXCISION - LESION - FROZEN SECTION; Surgeon: Sy murcia MD; Location: [facility] MAIN OR; Service: Plastics; Laterality: Left; forearm SKIN BIOPSY SKIN CANCER EXCISION Left 10/10/2012 Procedure: EXCISION - SKIN CANCER; Surgeon: Sy Fierro MD; Location: [facility] MAIN OR; Service: Plastics; Laterality: Left; upper arm and upper back w/frozen section UPPER GASTROINTESTINAL ENDOSCOPY UPPER GASTROINTESTINAL ENDOSCOPY 03/03/2013 Procedure: ESOPHAGOGASTRODUODENOSCOPY; Surgeon: Howie Gibson MD; Location: [facility] ENDOSCOPY; Se rvice: Gastroenterology; 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 Plus sliding [...] 1 tablet by mouth Daily. pravastatin (PRAVACHOL) 40 MG tablet Take 80 mg by mouth nightly. tamsulosin (FLOMAX) 0.4 mg [...] Lives alone x 1 wk, moved from [facility], , 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 2 falls in the last 6 months. Family History Problem Relation Age of Onset Heart disease Father Heart disease Sister Diabetes, NIDDM Sister Other (see comment) Brother Heart Problems Review of Systems Constitutional: Negative for: fever, chills Eyes: Negative for: decreased vision or irritated eyes Nose: Negative for: nosebleed Throat: Negative for: sore throat or dysphagia Cardiovascular/Respiratory: Positive for: chest pain Negative for: shortness of breath, cough Gastrointestinal: Negative for: abdominal pain, nausea/vomiting, diarrhea, constipation, b lack or bloody stools Genitourinary: Negative for: dysuria, hematuria, or increased urinary frequency Musculoskeletal: Negative for: joint pain, myalgias, or restriction of range of motion Skin: Negative for: laceration or lesion Neuro and psych: Positive for: fainting Negative for: head injury, seizure, trouble walking Endocrine/Heme/Lymph: Negative for: swollen lymph nodes, easy bruising Physical Exam Temp: 36.7 C (98.1 F) Pulse: 83 Resp: 28 BP: (!) 216/99 SpO2: 98 % Vitals: Elevated blood pressure with history of hypertension, tachypneic, otherwise normal. Pulse Oximetry Interpretation: Normal General: Alert, in mild visible distress Head: Normocephalic, atraumatic Eyes: Pupils equal and round, equally brisk responsiveness to light, non-icteric Extraocular motion intact ENT: Moist mucous membranes, pink appearing Neck: Normal appearing CVS: Regular rate, rhythm normal 1/6 systolic murmur most prominent over mitral valve Respiratory: Breath sounds normal bilaterally, normal chest rise and fall, no obvious traum a Abdomen: Normal appearing Soft, non-tender, non-distended Bowel sounds present Back: Moves without difficulty Extremities: Moves all extremities Trace pitting edema to the lower extremities, no calf tenderness to compression Distal pulses palpable, and of equal strength, in all extremities Skin: Color normal Warm and dry Neuro: No gross motor/sensory deficits noted Medical Decision Making and Emergency Department Course ED Department Course 9:55. Patient presents with chest pain. After gathering and discussing HPI, ROS, PMHX, Gayle gHx, FmHx, and physically examining the patient I have discussed differential considerations including, but not limited to, chest wall strain/sprain, pleuritis, pneumothorax/hemothorax , pleural effusion, pneumonia, pulmonary embolus, reactive airway disease, sarcoidosis, pulm onary mass, ascites, GERD/PUD, cardiac ischemia, CHF, cardiac tamponade, pericarditis, aorti c dissection, aortic aneurysm, vs other. Of the differential considerations I am most suspic ious for unstable angina. Will obtain testing as needed to address clinically significant d ifferential diagnoses and attempt to determine a definitive diagnosis (see Epic record for t ests specifically ordered). Pt is non-toxic appearing and I anticipate pt will be discharge d. The patient indicates understanding of expected course of ED evaluation and care. The patient was noted to have elevated blood pressure during their emergency department vis it. Causes of hypertension could include acute pain, stressful situation/anxiety, primary hy pertension, secondary hypertension, uncontrolled primary/secondary hypertension, pre-eclamps ia/eclampsia in patients, hypertensive urgency, or hypertensive emergency. Blood pr essures that are elevated but are not causing end organ damage do not require emergent treat ment directed to lower blood pressure within the emergency department setting. There are no overt signs of end organ damage at this time (acute TN, aortic dissection, acute CVA, eclam psia, etc) and no indication for emergent treatment for reduction of the noted blood pressur e in the emergency department. For assessment of whether the blood pressure elevation noted today may represent a condition requiring treatment the patient has been instructed to foll ow-up with their health care provider within a timeframe of four weeks maximum if discharged today. If the patient requires admission today the accepting service will continue to [facility] and provide clinical consideration regarding management of blood pressure. Medical Decision Making as of Dec 24 16 Wed Dec 12, 2018 1000 Troponin within normal limits. CBC within normal limits. CMP with elevated blood glu cose and mildly elevated alkaline phosphatase, otherwise within normal limits. 1009 Patient's physical examination is unremarkable, his recitation of history is difficult to interpret. He relates that he passed out this morning, and describes that the last thin g he remembers is sitting on his couch watching TV and approximately 20 minutes later he wok e up on the floor 10 yards away in the dining room. He reports no physical injury. Has no recollection of how he got from the couch to the dining room. Patient denies history of sle epwalking or history of seizures. I have reviewed the records from his prior visits and the most recent visit on December 01 the hospitalist had expressed the concern that the patient presented to the emergency department for secondary gain. The patient clearly stated today that he denied going to [facility] for his complaints this morning as he does not like them and prefers [facility]. Although this does in no way to prove whether the patient has a me dical concern requiring evaluation, it does raise the potential that the patient may be here for secondary gain. So far the blood work appears unremarkable, will obtain chest x-ray. EKG appears unremarkable. At this time it is unclear whether the patient would require admi ssion or could be safely discharged home, but I am leaning towards discharge home if no acut e findings are identified. 1105 Patient's blood pressure is beginning to improve after Catapres. Pending chest x-ray. 1141 Chest x-ray without acute abnormality. Patient has remained comfortable, no visible d istress, repeat vital signs show no tachypnea and blood pressure is improving. Will road te st the patient, if road test well anticipate discharge home. 1158 Repeat vital signs with continued slight improvement of blood pressure and respiratory rate. Patient is not hypoxic on room air. If patient road test well anticipate discharge home. [address] without becoming hypoxic although he did continue to describe c hest discomfort. Will obtain a second troponin to assess for acute changes that may indicat e need for further cardiac evaluation. 1333 Patient's troponin is trending in an upward direction, will require serial enzyme eval uation. Will start patient on heparin for unstable angina and admit patient to the hospital service. [address] Dhaliwal, he will see the patient in the emergency department f or admission. Records Reviewed Old medical records. Nursing notes. Greater than 50 emergency department prior visits for similar and unrelated complaints. Justino prabhakar appears to have been seen on November 15 in December 01. On 15 November patient was diag nosed as having slow transit constipation, hypertension, and hyperglycemia. On December 01 t he patient was diagnosed with having recurrent syncope and uncontrolled hypertension. Medications administered during ED Evaluation and Treatment: Medications cloNIDine (CATAPRES) tablet 0.2 mg (0.2 mg Oral Given 12/12/18 1036) heparin 1,000 units/mL injection 2,000-8,000 Units (5,000 Units Intravenous Given 12/12/18 1 433) Laboratory Evaluation Results Procedure Component Value Ref Range Date/Time Troponin I [[id number]] (Abnormal) Collected: 12/12/18 1243 Order Status: Completed Specimen: Blood Updated: 12/12/18 1310 Troponin I 0.041 0.00 - 0.04 ng/mL Comprehensive Metabolic Panel [[id number]] (Abnormal) Collected: 12/12/18932 Order Status: Completed Specimen: Blood Updated: 12/12/18 1000 Na 141 135 - 145 mmol/L K 4.2 3.5 - 4.9 mmol/L Cl 107 99 - 109 mmol/L CO2 25 23 - 32 mmol/L Anion Gap 13 5 - 20 mmol/L Glucose 286 65 - 99 mg/dL BUN 13 8 - 25 mg/dL Creatinine 0.96 0.70 - 1.30 mg/dL BUN/Creatinine Ratio 14 Calcium 9.6 8.5 - 10.5 mg/dL Protein, Total 7.1 6.3 - 8.2 g/dL Albumin 4.3 3.3 - 4.8 g/dL Globulin 2.8 1.3 - 4.9 g/dL A/G Ratio 1.5 1.0 - 2.4 BILIRUBIN, TOTAL 0.4 0.1 - 1.5 mg/dL ALK PHOS 120 35 - 115 U/L AST 29 10 - 45 U/L ALT 22 10 - 65 U/L Estimated GFR >60 >60 mL/min/1.73m2 Troponin I [[id number]] Collected: 12/12/18932 Order Status: Completed Specimen: Blood Updated: 12/12/18 1000 Troponin I 0.031 0.00 - 0.04 ng/mL CBC with Differential [[id number]] (Abnormal) Collected: 12/12/18932 Order Status: Completed Specimen: Blood Updated: 12/12/18 0950 WBC 9.80 3.80 - 11.00 K/uL RBC 5.33 4.20 - 5.70 M/uL Hemoglobin 15.3 13.2 - 17.0 g/dL Hematocrit 45.1 39.0 - 50.0 % MCV 84.6 80.0 - 100.0 fl MCH 28.6 27.0 - 34.0 pg MCHC 33.8 32.0 - 35.5 g/dL RDW-SD 42.0 37 - 53 fl Platelet Count 234 150 - 400 K/uL MPV 7.7 fl Diff Type AUTOMATED % Neutrophils 59.77 % % Lymphocytes 25.97 % Monocyte % 9.05 % Eosinophils % 4.14 % Basophils % 1.07 % Neutrophils, Absolute 5.86 1.90 - 7.40 K/uL Absolute Lymphocytes 2.54 1.00 - 3.90 K/uL Absolute Monocytes 0.89 0.00 - 0.80 K/uL Eosinophils, Absolute 0.41 0.00 - 0.50 K/uL Basophils, Absolute 0.11 0.00 - 0.10 K/uL Radiology and EKG Evaluation Imaging Results XR Chest PA and Lateral (Final result) Result time 12/12/18 11:31:36 Final result by Bhavin Gr MD (12/12/18 11:31:36) Impression: No active disease. Signed by: Irina Gr, Bhavin Sign Date/Time: 12/12/2018 11:31 AM Narrative: CHEST PA AND LATERAL CLINICAL INFORMATION: Chest pain and syncope. COMPARISON: XR CHEST PA AND LATERAL (12/01/2018); XR CHEST 1 VIEW (10/16/2018); XR CHEST 1 VIEW (10/13/2018); FINDINGS: The heart size is normal. I see no infiltrates or effusions. Technical limitation due to patient body habitus. Mild spondylotic changes of the spine EKG Interpretation: Time: 9:30 Rate: 78 Rhythm: Sinus [place]: Normal RICHARD: Normal QRS: Normal, narrow complex ST waves: No ST-T wave elevations or depressions Other: Inverted P Wave in III prolonged QT interval in III Prior EKG for comparison: 12/01/18, P Waves were upright in III in prior EKG Acute ischemia suggested: Independently reviewed and interpreted contemporaneously by myself. I have independently viewed the imaging (if ordered) and have either provided a preliminary wet read as above or have reviewed and agree with interpretation as reported by radiologist above. Labs and imaging (if ordered) reviewed. All pertinent positives noted and addressed. Resu lts (if tests were ordered) have been discussed with the patient. Diagnosis: Final diagnoses: Unstable angina (HCC) Essential hypertension Elevated troponin Hypertensive urgency Disposition: Admit to hospitalist service. Follow up: Follow-up Information Mireya Pack NP In 1 week. Specialty: Nurse Practitioner - Primary Care Why: Hospital follow up Contact information: [address] [place], [place] [address] [address] [id number] Discharge Medications: Discharge Medication List as of 12/13/2018 9:29 AM Procedure(s): Procedures Attending Provider Note: IYaakov DO personally performed the services described i n this documentation, as scribed by Myriam Villa in my presence, and it is both accurate and complete. Chart Reviewed and Completed. Scribe: Kari Mtz, scribing for and in the presence of Yaakov Bridges DO. Completed by: Kari Covington 12/24/2018 12:17 AM This document has been prepared with a voice recognition system. The possibility of "sound alike" commercial singer errors, addition and/or deletions may occur. If there is any question p lease contact the author of the document. Yaakov Bridges DO 12/24/18 0018 documented in this enc ounter Miscellaneous Notes Plan of Jelena - Roz Coats RN - 12/13/2018 9:55 AM PSTPatient was discharged home via dial-a-ride. Patient stated understanding of discharge information. Patient was discharged home with belongings. Patient was provided with information about controlling BP. Patient states he is safe to go home. Patient is in stable condition. lan of Jessy Mclaughlin RN - 019 11:39 PM PST Problem: Adult Inpatient Plan of Care Goal: Plan of Care Review Outcome: Ongoing, progressing Goal: Patient-Specific Goal Outcome: Ongoing, progressing Goal: Absence of Hospital-Acquired Illness or Injury Outcome: Ongoing, progressing Goal: Optimal Comfort and Wellbeing Outcome: Ongoing, progressing Problem: Pain (Acute Coronary Syndrome) Goal: Absence of Cardiac-Related Pain Outcome: Ongoing, progressing Problem: Fall Injury Risk Goal: Absence of Fall and Fall-Related Injury Outcome: Ongoing, progressing lan of Maria Alejandra Perez RN - 12/12/2018 6:55 PM PSTEnd of shift chart review complete Electron ically signed by Maria Alejandra Grayson RN at 12/12/2018 6:55 PM PSTPlan of Care - Nikole Grayson RN - 12/12/2018 5:08 PM PST Problem: Pain (Acute Coronary Syndrome) Goal: Absence of Cardiac-Related Pain Outcome: Ongoing, progressing Pt is tolerated pain well. Pain has not increased. documented in this encounter Plan of Treatment +--------+ + + + + | Date | Type | Specialty | Care Team | Description | +--------+ + + + + | 10/16/ | Anti-coag | Anticoagulation | Brittany Zaragoza | | | 2019 | visit | | [address] | | | | | | [place], | | | | | | [place] [address] | | | | | | [phone] | | | | | | | | +--------+ + + + + + +------+--------+ + + | Name | Type | Priori | Associated Diagnoses | Date/Time | | | | ty | | | + +------+--------+ + + | ED INFORMATION | COLTON | Routin | | 12/12/2018 9:25 AM | | EXCHANGE | | e | | PST | + +------+--------+ + + documented as of this encounter Procedures + +--------+ + + + | Procedure Name | Priori | Date/Time | Associated Diagnosis | Comments | | | ty | | | | + +--------+ + + + | POC GLUCOSE (NON | Routin | 12/13/2018 | | Results for this | | ORD) | e | 7:53 AM | | procedure are in the | | | | PST | | results section. | + +--------+ + + + | LIPID PANEL | Routin | 12/13/2018 | | Results for this | | | e | 6:02 AM | | procedure are in the | | | | PST | | results section. | + +--------+ + + + | PTT | STAT | 12/13/2018 | | Results for this | | | | 6:02 AM | | procedure are in the | | | | PST | | results section. | + +--------+ + + + | CBC WITH | Routin | 12/13/2018 | | Results for this | | DIFFERENTIAL | e | 6:02 AM | | procedure are in the | | | | PST | | results section. | + +--------+ + + + | MAGNESIUM | Routin | 12/13/2018 | | Results for this | | | e | 6:02 AM | | procedure are in the | | | | PST | | results section. | + +--------+ + + + | COMPREHENSIVE | Routin | 12/13/2018 | | Results for this | | METABOLIC PANEL | e | 6:02 AM | | procedure are in the | | | | PST | | results section. | + +--------+ + + + | POC GLUCOSE (NON | Routin | 12/13/2018 | | Results for this | | ORD) | e | 5:25 AM | | procedure are in the | | | | PST | | results section. | + +--------+ + + + | TROPONIN I | Timed | 12/12/2018 | | Results for this | | | | 11:41 PM | | procedure are in the | | | | PST | | results section. | + +--------+ + + + | POC GLUCOSE (NON | Routin | 12/12/2018 | | Results for this | | ORD) | e | 9:56 PM | | procedure are in the | | | | PST | | results section. | + +--------+ + + + | PTT | Timed | 12/12/2018 | | Results for this | | | | 8:17 PM | | procedure are in the | | | | PST | | results section. | + +--------+ + + + | TROPONIN I | Timed | 12/12/2018 | | Results for this | | | | 5:55 PM | | procedure are in the | | | | PST | | results section. | + +--------+ + + + | POC GLUCOSE (NON | Routin | 12/12/2018 | | Results for this | | ORD) | e | 4:54 PM | | procedure are in the | | | | PST | | results section. | + +--------+ + + + | TROPONIN I | STAT | 12/12/2018 | | Results for this | | | | 12:43 PM | | procedure are in the | | | | PST | | results section. | + +--------+ + + + | XR CHEST PA AND | ESCOBAR | 12/12/2018 | | Results for this | | LATERAL | | 11:28 AM | | procedure are in the | | | | PST | | results section. | + +--------+ + + + | TROPONIN I | STAT | 12/12/2018 | | Results for this | | | | 9:33 AM | | procedure are in the | | | | PST | | results section. | + +--------+ + + + | CBC WITH | STAT | 12/12/2018 | | Results for this | | DIFFERENTIAL | | 9:33 AM | | procedure are in the | | | | PST | | results section. | + +--------+ + + + | COMPREHENSIVE | STAT | 12/12/2018 | | Results for this | | METABOLIC PANEL | | 9:33 AM | | procedure are in the | | | | PST | | results section. | + +--------+ + + + | ECG 12 LEAD | STAT | 12/12/2018 | | Results for this | | | | 9:30 AM | | procedure are in the | | | | PST | | results section. | + +--------+ + + + | ED INFORMATION | Routin | 12/12/2018 | | | | EXCHANGE | e | 9:25 AM | | | | | | PST | | | + +--------+ + + + +---+--------+ | | | | | Proced | | | ure | | | Note - | | | Richard, | | | Lab In | | | | | | Hlseve | | | n - | | | 11/06/ | | | 2019 | | | 9:25 | | | AM PST | | [...] | | | FICATI | | | ON?[birth year] | | | [birth year] | | | 9 | | | 09:24? | | | GR, | | | NORAH | | | | | | M?MRN: | | | | | | [id number] | | | [id number] | | | riteri | | | [...] | | | Center | | | 11 0 | | | [place] | | | s | | | Medica | | | l | | | Center | | | 13 0 | | | [place] | | [...] | | | int | | | Nov 6, | | | 2019 | | | [facility] | | | | | | [facility] | | | al | | | [facility] | | | [place] | | | [place] | | | Emerge | | | ncy | | | chest | | | pain, | | | | | | syncop | | | e Oct | | | 26, | | [...] | | | 1. | | | 1 | | | [...] | | | pain | | | 1 | | | [...] | | | lation | | | 1 | | | [...] | | | /notif | | | [id number] | | | [id number] | | | [id number] | | | [id number] | | | [id number] | | | [id number] | | | d3 | | | PLEASE | | | [...] documented in this encounter Results POC Glucose (12/13/2018 7:53 AM PST) + + + + + + | Component | Value | Ref Range | Performed | Pathologist | | | | | At | Signature | + + + + + + | Glucose, | 193 (H)Comment: Testing | 65 - 99 mg/dL | [facility] | | | POC | performed at [facility];[address] | | LABORATORY | | | | [address];[place] | | | | | | [address] | | | | + + + + + + + + | Specimen | + + | | + + + + + + + | Performing | Address | City/State/Zipcode | Phone Number | | Organization | | | | + + + + + | [facility] | [address] | [place] [address] | [phone] | + + + + + PTT (12/13/2018 6:02 AM PST) + + + + + + | Component | Value | Ref Range | Performed | Pathologist | | | | | At | Signature | + + + + + + | PTT | 38 (H)Comment: Testing | 23 - 32 seconds | [facility] | | | | performed at [facility];[address] | | LABORATORY | | | | [address];[place] | | | | | | [address] | | | | + + + + + + + + | Specimen | + + | Blood | + + + + + + + | Performing | Address | City/State/Zipcode | Phone Number | | Organization | | | | + + + + + | [facility] | [address] | [place] [address] | [phone] | + + + + + Lipid Panel (12/13/2018 6:02 AM PST) + + + + + + | Component | Value | Ref Range | Performed | Pathologist | | | | | At | Signature | + + + + + + | Cholesterol | 151 | <200 mg/dL | [facility] | | | | | | LABORATORY | | + + + + + + | Triglycerid | 280 (H) | <150 mg/dL | [facility] | | | es | | | LABORATORY | | + + + + + + | HDL | 30 (L) | >40 mg/dL | [facility] | | | | | | LABORATORY | | + + + + + + | LDL, | 65Comment: Testing | <100 mg/dL | [facility] | | | Calculated | performed at [facility], [address] | | LABORATORY | | | | [address], | | | | | | [place] [address] | | | | + + + + + + + + | Specimen | + + | Blood | + + + + + + + | Performing | Address | City/State/Zipcode | Phone Number | | Organization | | | | + + + + + | [facility] | [address] | [place] [address] | [phone] | + + + + + Magnesium (12/13/2018 6:02 AM PST) + + + + + + | Component | Value | Ref Range | Performed | Pathologist | | | | | At | Signature | + + + + + + | Magnesium | 2.0Comment: Testing | 1.7 - 2.4 mg/dL | [facility] | | | | performed at [facility], [address] | LABORATORY | | | | [address], | | | | | | [place] [address] | | | | + + + + + + + + | Specimen | + + | Blood | + + + + + + + | Performing | Address | City/State/Zipcode | Phone Number | | Organization | | | | + + + + + | [facility] | [address] | [place] [address] | [phone] | + + + + + CBC with Differential (12/13/2018 6:02 AM PST) + + + + + + | Component | Value | Ref Range | Performed | Pathologist | | | | | At | Signature | + + + + + + | WBC | 9.68 | 3.80 - 11.00 | [facility] | | | | | K/uL | LABORATORY | | + + + + + + | Red Blood | 4.81 | 4.20 - 5.70 | [facility] | | | Cells | | M/uL | LABORATORY | | + + + + + + | Hemoglobin | 13.5 | 13.2 - 17.0 | [facility] | | | | | g/dL | LABORATORY | | + + + + + + | Hematocrit | 40.9 | 39.0 - 50.0 % | [facility] | | | | | | LABORATORY | | + + + + + + | MCV | 84.9 | 80.0 - 100.0 fl | [facility] | | | | | | LABORATORY | | + + + + + + | MCH | 28.0 | 27.0 - 34.0 pg | [facility] | | | | | | LABORATORY | | + + + + + + | MCHC | 33.0 | 32.0 - 35.5 | [facility] | | | | | g/dL | LABORATORY | | + + + + + + | RDW-SD | 42.9 | 37 - 53 fl | [facility] | | | | | | LABORATORY | | + + + + + + | Platelet | 195 | 150 - 400 K/uL | [facility] | | | Count | | | LABORATORY | | + + + + + + | MPV | 8.3 | fl | [facility] | | | | | | LABORATORY | | + + + + + + | Diff Type | AUTOMATED | | [facility] | | | | | | LABORATORY | | + + + + + + | % | 41.15 | % | [facility] | | | Neutrophils | | | LABORATORY | | + + + + + + | % | 38.86 | % | [facility] | | | Lymphocytes | | | LABORATORY | | + + + + + + | Monocyte % | 9.95 | % | [facility] | | | | | | LABORATORY | | + + + + + + | Eosinophils | 9.34 | % | [facility] | | | % | | | LABORATORY | | + + + + + + | Basophils % | 0.70 | % | [facility] | | | | | | LABORATORY | | + + + + + + | Neutrophils | 3.98 | 1.90 - 7.40 | [facility] | | | , Absolute | | K/uL | LABORATORY | | + + + + + + | Absolute | 3.76 | 1.00 - 3.90 | [facility] | | | Lymphocytes | | K/uL | LABORATORY | | + + + + + + | Absolute | 0.96 (H) | 0.00 - 0.80 | [facility] | | | Monocytes | | K/uL | LABORATORY | | + + + + + + | Eosinophils | 0.90 (H) | 0.00 - 0.50 | [facility] | | | , Absolute | | K/uL | LABORATORY | | + + + + + + | Basophils, | 0.07Comment: Testing | 0.00 - 0.10 | [facility] | | | Absolute | performed at [facility], [address] | K/[address] | LABORATORY | | | | [address], | | | | | | [place] [address] | | | | + + + + + + + + | Specimen | + + | Blood | + + + + + + + | Performing | Address | City/State/Zipcode | Phone Number | | Organization | | | | + + + + + | [facility] | [address] | [place] [address] | [phone] | + + + + + Comprehensive Metabolic Panel (12/13/2018 6:02 AM PST) + + + + + + | Component | Value | Ref Range | Performed | Pathologist | | | | | At | Signature | + + + + + + | Na | 140 | 135 - 145 | [facility] | | | | | mmol/L | LABORATORY | | + + + + + + | K | 3.8 | 3.5 - 4.9 | [facility] | | | | | mmol/L | LABORATORY | | + + + + + + | Cl | 110 (H) | 99 - 109 mmol/L | [facility] | | | | | | LABORATORY | | + + + + + + | CO2 | 25 | 23 - 32 mmol/L | [facility] | | | | | | LABORATORY | | + + + + + + | Anion Gap | 9 | 5 - 20 mmol/L | [facility] | | | | | | LABORATORY | | + + + + + + | Glucose | 181 (H) | 65 - 99 mg/dL | [facility] | | | | | | LABORATORY | | + + + + + + | BUN | 20 | 8 - 25 mg/dL | [facility] | | | | | | LABORATORY | | + + + + + + | Creatinine | 0.8 | 0.70 - 1.30 | [facility] | | | | | mg/dL | LABORATORY | | + + + + + + | BUN/Creatin | 25 | | [facility] | | | ine Ratio | | | LABORATORY | | + + + + + + | Calcium | 8.8 | 8.5 - 10.5 | [facility] | | | | | mg/dL | LABORATORY | | + + + + + + | Protein, | 6.4 | 6.3 - 8.2 g/dL | [facility] | | | Total | | | LABORATORY | | + + + + + + | Albumin | 2.8 (L) | 3.3 - 4.8 g/dL | [facility] | | | | | | LABORATORY | | + + + + + + | Globulin | 3.6 | 1.3 - 4.9 g/dL | [facility] | | | | | | LABORATORY | | + + + + + + | A/G Ratio | 0.8 (L) | 1.0 - 2.4 | [facility] | | | | | | LABORATORY | | + + + + + + | BILIRUBIN, | 0.4 | 0.1 - 1.5 mg/dL | [facility] | | | TOTAL | | | LABORATORY | | + + + + + + | ALK PHOS | 95 | 35 - 115 U/L | [facility] | | | | | | LABORATORY | | + + + + + + | AST | 23 | 10 - 45 U/L | [facility] | | | | | | LABORATORY | | + + + + + + | ALT | 23 | 10 - 65 U/L | [facility] [...] | performed at [facility], [address] | | | | | | [address], | | | | | | [place] [address] | | | | + + + + + + + + | Specimen | + + | Blood | + + + + + + + | Performing | Address | City/State/Zipcode | Phone Number | | Organization | | | | + + + + + | [facility] | [address] | [place] [address] | [phone] | + + + + + POC Glucose (12/13/2018 5:25 AM PST) + + + + + + | Component | Value | Ref Range | Performed | Pathologist | | | | | At | Signature | + + + + + + | Glucose, | 176 (H)Comment: Testing | 65 - 99 mg/dL | [facility] | | | POC | performed at [facility];[address] | | LABORATORY | | | | [address];[place] | | | | | | [address] | | | | + + + + + + + + | Specimen | + + | | + + + + + + + | Performing | Address | City/State/Zipcode | Phone Number | | Organization | | | | + + + + + | [facility] | [address] | [place] [address] | [phone] | + + + + + Troponin I (12/12/2018 11:41 PM PST) + + + + + [...] | | | | | | [facility];[address] [place] [address] | | | | | | [facility];[place] [address] | | | | + + + + + + + + | Specimen | + + | Blood | + + + + + + + | Performing | Address | City/State/Zipcode | Phone Number | | Organization | | | | + + + + + | [facility] | [address] | [place] [address] | [phone] | + + + + + POC Glucose (12/12/2018 9:56 PM PST) + + + + + + | Component | Value | Ref Range | Performed | Pathologist | | | | | At | Signature | + + + + + + | Glucose, | 237 (H)Comment: Testing | 65 - 99 mg/dL | [facility] | | | POC | performed at [facility];[address] | | LABORATORY | | | | [address];[place] | | | | | | [address] | | | | + + + + + + + + | Specimen | + + | | + + + + + + + | Performing | Address | City/State/Zipcode | Phone Number | | Organization | | | | + + + + + | [facility] | [address] | [place] [address] | [phone] | + + + + + PTT (12/12/2018 8:17 PM PST) + + + + + + | Component | Value | Ref Range | Performed | Pathologist | | | | | At | Signature | + + + + + + | PTT | 33 (H)Comment: Testing | 23 - 32 seconds | [facility] | | | | performed at [facility];[address] | | LABORATORY | | | | [address];[place] | | | | | | [address] | | | | + + + + + + + + | Specimen | + + | Blood | + + + + + + + | Performing | Address | City/State/Zipcode | Phone Number | | Organization | | | | + + + + + | [facility] | [address] | [place] [address] | [phone] | + + + + + Troponin I (12/12/2018 5:55 PM PST) + + + + + + | Component | Value | Ref Range | Performed | Pathologist | | | | | At | Signature | + + + + + + | Troponin I | 0.038Comment: 0.04 | 0.00 - 0.04 | [facility] | | | | ng/mL or less [...] | | | | | | [facility];[address] [facility] | | | | | | [facility];[place] [address] | | | | + + + + + + + + | Specimen | + + | Blood | + + + + + + + | Performing | Address | City/State/Zipcode | Phone Number | | Organization | | | | + + + + + | [facility] | [address] | [place] [address] | [phone] | + + + + + POC Glucose (12/12/2018 4:54 PM PST) + + + + + + | Component | Value | Ref Range | Performed | Pathologist | | | | | At | Signature | + + + + + + | Glucose, | 250 (H)Comment: Testing | 65 - 99 mg/dL | [facility] | | | POC | performed at [facility];[address] | | LABORATORY | | | | [address];[place] | | | | | | [address] | | | | + + + + + + + + | Specimen | + + | | + + + + + + + | Performing | Address | City/State/Zipcode | Phone Number | | Organization | | | | + + + + + | [facility] | [address] | [place] [address] | [phone] | + + + + + Troponin I (12/12/2018 12:43 PM PST) + + + + + + | Component | Value | Ref Range | Performed | Pathologist | | | | | At | Signature | + + + + + + | Troponin I | 0.041 (H)Comment: 0.04 | 0.00 - 0.04 | [facility] [...] | | | | | | [facility];[address] [facility] | | | | | | [address];[place] [address] | | | | + + + + + + + + | Specimen | + + | Blood | + + + + + + + | Performing | Address | City/State/Zipcode | Phone Number | | Organization | | | | + + + + + | [facility] | [address] | [place] [address] | [phone] | + + + + + XR Chest PA and Lateral (12/12/2018 11:28 AM PST) + + | Specimen | + + | | + + + + + | Impressions | Performed At | + + + | No active disease. Signed by: Irina Gr Shawn Sign | [facility] | | Date/Time: 12/12/2018 11:31 AM | | + + + + + + | Narrative | Performed At | + + + | CHEST PA AND LATERAL CLINICAL INFORMATION: Chest pain and | [facility] | | syncope. COMPARISON: XR CHEST PA AND LATERAL (12/01/2018); XR | | | CHEST 1 VIEW (10/16/2018); XR CHEST 1 VIEW (10/13/2018); FINDINGS: | | | The heart size is normal. I see no infiltrates or effusions. | | | Technical limitation due to patient body habitus. Mild spondylotic | | | changes of the spine | | + + + + + | Procedure Note | + + | Richard, Rad Results In - 12/12/2018 11:35 AM PST | | CHEST PA AND LATERAL | | | | CLINICAL INFORMATION: | | Chest pain and syncope. | | | | COMPARISON: | | XR CHEST PA AND LATERAL (12/01/2018); XR CHEST 1 VIEW (10/16/2018); XR | | CHEST 1 VIEW (10/13/2018); | | | | FINDINGS: | | The heart size is normal. I see no infiltrates or effusions. | | Technical limitation due to patient body habitus. Mild spondylotic | | changes of the spine | | | | IMPRESSION: | | No active disease. | | | | | | | | Signed by: Irina rG Shawn | | Sign Date/Time: 12/12/2018 11:31 AM | + + + +---------+ + + | Performing | Address | City/State/Zipcode | Phone Number | | Organization | | | | + +---------+ + + | [facility] | | | | + +---------+ + + Troponin I (12/12/2018 9:33 AM PST) + + + + + + | Component | Value | Ref Range | Performed | Pathologist | | | | | At | Signature | + + + + + + | Troponin I | 0.031Comment: 0.04 | 0.00 - 0.04 | [facility] [...] | | | | | | [facility];[address];[place] [address] | | | | + + + + + + + + | Specimen | + + | Blood | + + + + + + + | Performing | Address | City/State/Zipcode | Phone Number | | Organization | | | | + + + + + | [facility] | [address] | [place] [address] | [phone] | + + + + + Comprehensive Metabolic Panel (12/12/2018 9:33 AM PST) + + + + + + | Component | Value | Ref Range | Performed | Pathologist | | | | | At | Signature | + + + + + + | Na | 141 | 135 - 145 | [facility] | | | | | mmol/L | LABORATORY | | + + + + + + | K | 4.2 | 3.5 - 4.9 | [facility] | | | | | mmol/L | LABORATORY | | + + + + + + | Cl | 107 | 99 - 109 mmol/L | [facility] | | | | | | LABORATORY | | + + + + + + | CO2 | 25 | 23 - 32 mmol/L | [facility] | | | | | | LABORATORY | | + + + + + + | Anion Gap | 13 | 5 - 20 mmol/L | [facility] | | | | | | LABORATORY | | + + + + + + | Glucose | 286 (H) | 65 - 99 mg/dL | [facility] | | | | | | LABORATORY | | + + + + + + | BUN | 13 | 8 - 25 mg/dL | [facility] | | | | | | LABORATORY | | + + + + + + | Creatinine | 0.96 | 0.70 - 1.30 | [facility] | | | | | mg/dL | LABORATORY | | + + + + + + | BUN/Creatin | 14 | | [facility] | | | ine Ratio | | | LABORATORY | | + + + + + + | Calcium | 9.6 | 8.5 - 10.5 | [facility] | | | | | mg/dL | LABORATORY | | + + + + + + | Protein, | 7.1 | 6.3 - 8.2 g/dL | [facility] | | | Total | | | LABORATORY | | + + + + + + | Albumin | 4.3 | 3.3 - 4.8 g/dL | [facility] | | | | | | LABORATORY | | + + + + + + | Globulin | 2.8 | 1.3 - 4.9 g/dL | [facility] [...] + + + | ALK PHOS | 120 (H) | 35 - 115 U/L | [facility] | | | | | | LABORATORY | | + + + + + + | AST | 29 | 10 - 45 U/L | [facility] [...] | | | | performed at [facility] | | | | | | [facility];[place], [place] | | | | | | [address] | | | | + + + + + + + + | Specimen | + + | Blood | + + + + + + + | Performing | Address | City/State/Zipcode | Phone Number | | Organization | | | | + + + + + | [facility] | [address] | [place] [address] | [phone] | + + + + + CBC with Differential (12/12/2018 9:33 AM PST) + + + + + + | Component | Value | Ref Range | Performed | Pathologist | | | | | At | Signature | + + + + + + | WBC | 9.80 | 3.80 - 11.00 | [facility] | | | | | K/uL | LABORATORY | | + + + + + + | Red Blood | 5.33 | 4.20 - 5.70 | [facility] | | | Cells | | M/uL | LABORATORY | | + + + + + + | Hemoglobin | 15.3 | 13.2 - 17.0 | [facility] | | | | | g/dL | LABORATORY | | + + + + + + | Hematocrit | 45.1 | 39.0 - 50.0 % | [facility] | | | | | | LABORATORY | | + + + + + + | MCV | 84.6 | 80.0 - 100.0 fl | [facility] | | | | | | LABORATORY | | + + + + + + | MCH | 28.6 | 27.0 - 34.0 pg | [facility] | | | | | | LABORATORY | | + + + + + + | MCHC | 33.8 | 32.0 - 35.5 | [facility] | | | | | g/dL | LABORATORY | | + + + + + + | RDW-SD | 42.0 | 37 - 53 fl | [facility] | | | | | | LABORATORY | | + + + + + + | Platelet | 234 | 150 - 400 K/uL | [facility] | | | Count | | | LABORATORY | | + + + + + + | MPV | 7.7 | fl | [facility] | | | | | | LABORATORY | | + + + + + + | Diff Type | AUTOMATED | | [facility] | | | | | | LABORATORY | | + + + + + + | % | 59.77 | % | [facility] | | | Neutrophils | | | LABORATORY | | + + + + + + | % | 25.97 | % | [facility] | | | Lymphocytes | | | LABORATORY | | + + + + + + | Monocyte % | 9.05 | % | [facility] | | | | | | LABORATORY | | + + + + + + | Eosinophils | 4.14 | % | [facility] | | | % | | | LABORATORY | | + + + + + + | Basophils % | 1.07 | % | [facility] | | | | | | LABORATORY | | + + + + + + | Neutrophils | 5.86 | 1.90 - 7.40 | [facility] | | | , Absolute | | K/uL | LABORATORY | | + + + + + + | Absolute | 2.54 | 1.00 - 3.90 | [facility] | | | Lymphocytes | | K/uL | LABORATORY | | + + + + + + | Absolute | 0.89 (H) | 0.00 - 0.80 | [facility] | | | Monocytes | | K/uL | LABORATORY | | + + + + + + | Eosinophils | 0.41 | 0.00 - 0.50 | [facility] | | | , Absolute | | K/uL | LABORATORY | | + + + + + + | Basophils, | 0.11 (H)Comment: Testing | 0.00 - 0.10 | [facility] | | | Absolute | performed at [facility];[address] | [address] | LABORATORY | | | | [address];[place] | | | | | | [address] | | | | + + + + + + + + | Specimen | + + | Blood | + + + + + + + | Performing | Address | City/State/Zipcode | Phone Number | | Organization | | | | + + + + + | [facility] | [address] | [place] [address] | [phone] | + + + + + ECG 12 lead (12/12/2018 9:30 AM PST) + + + + + + | Component | Value | Ref Range | Performed | Pathologist | | | | | At | Signature | + + + + + + | VENTRICULAR | 78 | BPM | [facility] | | | RATE EKG | | | | | + + + + + + | ATRIAL RATE | 78 | BPM | [facility] | | + + + + + + | P-R | 154 | ms | [facility] | | [...] + + + + | Q-T | 456 | ms | [facility] | | | INTERVAL | | | | | | (CORRECTED) | | | | | + + + + + + | P WAVE AXIS | 25 | degrees | [facility] | | + + + + + + | QRS AXIS | 41 | degrees | [facility] | | + + + + + + | T AXIS | 65 | degrees | [facility] | | + + + + + + | INTERPRETAT | Sinus rhythm with | | [facility] | | | ION TEXT | Premature atrial | | | | | | complexesNonspecific ST | | | | | | abnormalityAbnormal | | | | | | ECGWhen compared with | | | | | | ECG of 01-DEC-2018 | | | | | | 08:24,Premature atrial | | | | | | [...] (500), | | | | | | 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 | | | | | | ([id number]) on 12/13/2018 | | | | | | 4:30:24 PM | | | | + + [...] | Diagnosis | + + | Other chest pain - Primary | + + | Unstable angina (HCC) Intermediate coronary syndrome | + + | Essential hypertension Unspecified essential hypertension | + + | Elevated troponin Other abnormal blood chemistry | + + | Hypertensive urgency Unspecified essential hypertension | + + | Paroxysmal atrial fibrillation (HCC) Atrial fibrillation | + + | Hyperlipidemia Other and unspecified hyperlipidemia | + + | Chronic back pain Backache, unspecified | + + | WARD (obstructive sleep apnea) Obstructive sleep apnea (adult) (pediatric) | + + | COPD (chronic obstructive pulmonary disease) Chronic airway obstruction, not | | elsewhere classified | + + | Anxiety Anxiety state, unspecified | + + | Depression Depressive disorder, not elsewhere classified | + + | Hypertension Unspecified essential hypertension | + + | Diabetes mellitus, type 2 Type II or unspecified type diabetes mellitus without | | mention of complication, not stated as uncontrolled | + + | Syncope Syncope and collapse | + + documented in this encounter Administered Medications + +--------+ +------+------+------+ | Medication Order | MAR | Action | Dose | Rate | Site | | | Action | Date | | | | + +--------+ +------+------+------+ | apixaban (ELIQUIS) tablet 5 mg | Given | 12/14/19 | 5 mg | | | | 5 mg, Oral, 2 TIMES DAILY, First | | 19 9:50 | | | | | dose on [facility] 12/13/18 at 0900 | | AM PST | | | | + +--------+ +------+------+------+ +---+---+ | | | +---+---+ + +-------+ +------+---+---+ | ARIPiprazole (ABILIFY) tablet 5 | Given | 12/14/19 | 5 mg | | | | mg 5 mg, Oral, DAILY, First | | 19 9:50 | | | | | dose on Mon12/12/18 at 1615 | | AM PST | | | | + +-------+ +------+---+---+ +-------+ +------+---+---+ | Given | 12/13/19 | 5 mg | | | | | 19 5:11 | | | | | | PM PST | | | | +-------+ +------+---+---+ +---+---+ | | | +---+---+ + +-------+ +-------+---+---+ | aspirin chewable tablet 81 mg | Given | 12/14/19 | 81 mg | | | | 81 mg, Oral, DAILY, First dose on | | 19 8:02 | | | | | 12/12/18 at 1615 | | AM PST | | | | + +-------+ +-------+---+---+ +-------+ +-------+---+---+ | Given | 12/13/19 | 81 mg | | | | | 19 4:55 | | | | | | PM PST | | | | +-------+ +-------+---+---+ +---+---+ | | | +---+---+ + +-------+ +---------+---+---+ | budesonide-formoterol | Given | 12/14/19 | 2 puffs | | | | (SYMBICORT) 160-4.5 mcg/puff | | 19 8:02 | | | | | inhaler 2 puff 2 puff, | | AM PST | | | | | Inhalation, 2 TIMES DAILY, First | | | | | | | dose on Mon12/12/18 at 2100, | | | | | | | Shake well. Use with spacer. | | | | | | | Rinse mouth after use., | | | | | | + +-------+ +---------+---+---+ +-------+ +---------+---+---+ | Given | 12/13/19 | 2 puffs | | | | | 19 8:14 | | | | | | PM PST | | | | +-------+ +---------+---+---+ +---+---+ | | | +---+---+ + +-------+ +---------+---+---+ | carvedilol (COREG) tablet 12.5 | Given | 12/14/19 | 12.5 mg | | | | mg 12.5 mg, Oral, 2 TIMES DAILY | | 19 8:03 | | | | | WITH BREAKFAST & DINNER, First | | AM PST | | | | | dose on Mon12/12/18 at 1700 | | | | | | + +-------+ +---------+---+---+ +-------+ +---------+---+---+ | Given | 12/13/19 | 12.5 mg | | | | | 19 4:55 | | | | | | PM PST | | | | +-------+ +---------+---+---+ +---+---+ | | | +---+---+ + +-------+ +--------+---+---+ | cloNIDine (CATAPRES) tablet 0.2 | Given | 12/13/19 | 0.2 mg | | | | mg 0.2 mg, Oral, ONCE, Mon | | 19 10:36 | | | | | 12/12/18 at 1015, For 1 dose | | AM PST | | | | + +-------+ +--------+---+---+ + +---+ | | | + +---+ | dextrose 10% (D10W) infusion | | | at 50 mL/hr, Intravenous, | | | CONTINUOUS PRN, hypoglycemia, | | | Starting 11/6/19 at 1547, | | | Start infusion if unable [...] | | | Low Blood Sugar, Starting Mon | | | 12/12/18 at 1547, For blood | | | glucose 50-69 mg/dl - give 12.5 g | | | For blood glucose less than 50 | | | mg/dl - give 25 g, | | + +---+ | | | + +---+ + +-------+ +------+---+---+ | finasteride (PROSCAR) tablet 5 | Given | 12/14/19 | 5 mg | | | | mg 5 mg, Oral, DAILY, First dose | | 19 8:02 | | | | | on Mon12/12/18 at 1615, | | AM PST | | | | | Reproductive Risk: Use | | | | | | | appropriate handling | | | | | | | precautions., | | | | | | + +-------+ +------+---+---+ +-------+ +------+---+---+ | Given | 12/13/19 | 5 mg | | | | | 19 4:54 | | | | | | PM PST | | | | +-------+ +------+---+---+ + +---+ | | | + +---+ | heparin 1,000 units/mL | | | injection 2,000-5,000 Units | | | 2,000-5,000 Units, Intravenous, | | | PRN, Protocol/Titration, Starting | | | 12/12/18 at 1334, CARDIAC | | | DOSE HEPARIN PROTOCOL STARTING | | | heparin infusion dose 12 | | | units/kg/hr, initial rate max | | | 1,000 units/hr. Draw APTT from | | | an IV site other than heparin IV | | | site 6 hours after starting a | | | heparin infusion. APTT Nomogram | | | for ADJUSTING heparin APTT < 20 | | | seconds: Bolus 5,000 units and | | | Increase rate by 3 units/kg/hr | | | Repeat aPTT 6 hr after change | | | APTT 20-29 seconds: Bolus 2,500 | | | units and Increase rate by 2 | | | units/kg/hr Repeat aPTT 6 hr | | | after change APTT 30-45 seconds | | | Increase rate by 2 units/kg/hr | | | Repeat aPTT 6 hr after change | | | APTT 46-56 seconds: (GOAL | | | RANGE): Cardiac dose | | | therapeutic range No change | | | APTT 57-75 seconds: Decrease | | | rate by 2 units/kg/hr Repeat | | | aPTT 6 hr after change IF aPTT > | | | 75 seconds: Decrease rate by 3 | | | units/kg/hr Do not hold | | | infusion Repeat aPTT 6 hr after | | | change, | | + +---+ | | | + +---+ + +-------+ +--------+---+---+ | heparin 1,000 units/mL | Given | 12/13/19 | 5,000 | | | | injection 2,000-8,000 Units | | 19 2:33 | Units | | | | 2,000-8,000 Units, Intravenous, | | PM PST | | | | | ONCE, 12/12/18 at 1340, For 1 | | | | | | | dose, Heparin Protocol - Cardiac | | | | | | | Dose Initial Bolus Give heparin | | | | | | | 5,000 units x1 (60 units/kg IV x | | | | | | | 1, round to nearest 100 units, | | | | | | | max 5000 units), | | | | | | + +-------+ +--------+---+---+ +---+---+ | | | +---+---+ + + + + +-------+---+ | heparin in dextrose 100 | Rate/Dos | 12/14/19 | 14.211 | 13.6 | | | units/mL infusion 10.45 | e | 19 7:20 | Units/kg | mL/hr | | | Units/kg/hr | Change-D | AM PST | /hr | | | | 95.7 kg (10.0007 mL/hr, rounded | ual Sign | | | | | | to 10 mL/hr), at 10 mL/hr, | | | | | | | Intravenous, TITRATED, Starting | | | | | | | 12/12/18 at 1345, CARDIAC DOSE | | | | | | | HEPARIN PROTOCOL STARTING | | | | | | | heparin infusion dose 12 | | | | | | | units/kg/hr, initial rate max | | | | | | | 1,000 units/hr. Draw APTT from | | | | | | | an IV site other than heparin IV | | | | | | | site 6 hours after starting a | | | | | | | heparin infusion. APTT Nomogram | | | | | | | for ADJUSTING heparin APTT < 20 | | | | | | | seconds: Bolus 5,000 units and | | | | | | | Increase rate by 3 units/kg/hr | | | | | | | Repeat aPTT 6 hr after change | | | | | | | APTT 20-29 seconds: Bolus 2,500 | | | | | | | units and Increase rate by 2 | | | | | | | units/kg/hr Repeat aPTT 6 hr | | | | | | | after change APTT 30-45 seconds | | | | | | | Increase rate by 2 units/kg/hr | | | | | | | Repeat aPTT 6 hr after change | | | | | | | APTT 46-56 seconds: (GOAL | | | | | | | RANGE): Cardiac dose | | | | | | | therapeutic range No change | | | | | | | APTT 57-75 seconds: Decrease | | | | | | | rate by 2 units/kg/hr Repeat | | | | | | | aPTT 6 hr after change IF aPTT > | | | | | | | 75 seconds: Decrease rate by 3 | | | | | | | units/kg/hr Do not hold | | | | | | | infusion Repeat aPTT 6 hr after | | | | | | | change, | | | | | | + + + + +-------+---+ + + + +-------+---+ | Rate/Dose Change-Dual Sign | 12/14/19 | 14.25 | 13.6 | | | | 19 6:32 | Units/kg | mL/hr | | | | AM PST | /hr | | | + + + +-------+---+ | Rate/Dose Change-Dual Sign | 12/13/19 | 12.435 | 11.9 | | | | 19 10:44 | Units/kg | mL/hr | | | | PM PST | /hr | | | + + + +-------+---+ +---+---+ | | | +---+---+ + +-------+ +-------+---+---+ | hydrALAZINE (APRESOLINE) | Given | 12/13/19 | 10 mg | | | | injection 10 mg 10 mg, | | 19 3:29 | | | | | Intravenous, EVERY 4 HOURS PRN, | | PM PST | | | | | for sbp >160, Starting Mon | | | | | | | 12/12/18 at 1524 | | | | | | + +-------+ +-------+---+---+ +---+---+ | | | +---+---+ + +-------+ +-------+---+---+ | hydrALAZINE (APRESOLINE) tablet | Given | 12/14/19 | 25 mg | | | | 25 mg 25 mg, Oral, 2 TIMES | | 19 8:02 | | | | | DAILY, First dose on Mon12/12/18 | | AM PST | | | | | at 2100 | | | | | | + +-------+ +-------+---+---+ +-------+ +-------+---+---+ | Given | 12/13/19 | 25 mg | | | | | 19 8:17 | | | | | | PM PST | | | | +-------+ +-------+---+---+ +---+---+ | | | +---+---+ + +-------+ + +---+ + | insulin detemir (LEVEMIR | Given | 12/13/19 | 45 Units | | Abdomen- | | FLEXTOUCH) injection (pen) 45 | | 19 8:17 | | | LLQ | | Units 45 Units, Subcutaneous, | | PM PST | | | | | NIGHTLY, First dose on Mon | | | | | | | 12/12/18 at 2100, For subcutaneous | | | | | | | use only. Basal (long acting) | | | | | | | insulin., If NPO: Decrease dose, | | | | | | | by: 25% | | | | | | + +-------+ + +---+ + +---+---+ | | | +---+---+ + +-------+ +---------+---+ + | insulin lispro (humaLOG) | Given | 12/14/19 | 1 Units | | Arm-Righ | | injection (vial) 0-6 Units 0-6 | | 19 8:03 | | | t Upper | | Units, Subcutaneous, 4 TIMES | | AM PST | | | | | DAILY WITH MEALS & NIGHTLY, First | | | | | | | dose on Mon12/12/18 at 1700, | | | | | | | CORRECTION SCALE: Blood Glucose | | | | | | | (BG) < 150: None BG | | | | | | | 150-200: DAY: 1 units. NIGHT: 0 | | | | | | | units BG 201-250: DAY: 2 | | | | | | | units. NIGHT: 1 units BG | | | | | | | 251-300: DAY: 3 units. NIGHT: 2 | | | | | | | units BG 301-350: DAY: 4 units. | | | | | | | NIGHT: 3 units BG 351-400: | | | | | | | DAY: 5 units. NIGHT: 4 units | | | | | | | BG > 400 : DAY: 6 units. | | | | | | | NIGHT: 5 units | | | | | | | AND CALL PROVIDER Use DAY | | | | | | | DOSE for doses scheduled: | | | | | | | AC, NPO, Daytime [phone] Use | | | | | | | NIGHT DOSE for doses scheduled: | | | | | | | HS, 3AM, Nighttime [phone] | | | | | | | If the BG is not checked before | | | | | | | the patient starts eating, do not | | | | | | | give correction insulin. If HS | | | | | | | insulin given, check blood | | | | | | | glucose at 3AM. Only for use with | | | | | | | U-100 insulin syringe., | | | | | | + +-------+ +---------+---+ + +-------+ +---------+---+ + | Given | 12/13/19 | 1 Units | | Leg-Left | | | 19 10:43 | | | Upper | | | PM PST | | | | +-------+ +---------+---+ + | Given | 12/13/19 | 2 Units | | Abdomen- | | | 19 5:12 | | | LLQ | | | PM PST | | | | +-------+ +---------+---+ + +---+---+ | | | +---+---+ + +-------+ +-------+---+---+ | lisinopril (PRINIVIL, ZESTRIL) | Given | 12/14/19 | 20 mg | | | | tablet 20 mg 20 mg, Oral, DAILY, | | 19 8:02 | | | | | First dose on Mon12/12/18 at | | AM PST | | | | | 1615 | | | | | | + +-------+ +-------+---+---+ +-------+ +-------+---+---+ | Given | 12/13/19 | 20 mg | | | | | 19 4:55 | | | | | | PM PST | | | | +-------+ +-------+---+---+ +---+---+ | | | +---+---+ + +-------+ +-------+---+---+ | NIFEdipine (PROCARDIA XL) ER | Given | 12/14/19 | 60 mg | | | | tablet 60 mg 60 mg, Oral, DAILY, | | 19 8:02 | | | | | First dose on Mon12/12/18 at | | AM PST | | | | | 1615 | | | | | | + +-------+ +-------+---+---+ +-------+ +-------+---+---+ | Given | 12/13/19 | 60 mg | | | | | 19 5:11 | | | | | | PM PST | | | | +-------+ +-------+---+---+ +---+---+ | | | +---+---+ + +-------+ + +---+---+ | oxyCODONE-acetaminophen | Given | 12/14/19 | 1 tablet | | | | (PERCOCET) 5-325 mg per tablet | | 19 6:03 | | | | | 1-2 tablet 1-2 tablet, Oral, | | AM PST | | | | | EVERY 4 HOURS PRN, Pain, Starting | | | | | | | Mon12/12/18 at 1547, If | | | | | | | ineffective use Oxycodone if | | | | | | | ordered. If not tolerated use | | | | | | | Halliday 10/325 if ordered., | | | | | | + +-------+ + +---+---+ +-------+ + +---+---+ | Given | 12/13/19 | 1 tablet | | | | | 19 5:15 | | | | | | PM PST | | | | +-------+ + +---+---+ +---+---+ | | | +---+---+ + +-------+ +-------+---+---+ | pravastatin (PRAVACHOL) tablet | Given | 12/13/19 | 80 mg | | | | 80 mg 80 mg, Oral, NIGHTLY, | | 19 8:16 | | | | | First dose on Mon12/12/18 at 2100 | | PM PST | | | | + +-------+ +-------+---+---+ +---+---+ | | | +---+---+ + +-------+ +--------+---+---+ | tamsulosin (FLOMAX) capsule 0.4 | Given | 12/14/19 | 0.4 mg | | | | mg 0.4 mg, Oral, 2 TIMES DAILY, | | 19 8:02 | | | | | First dose on Mon12/12/18 at | | AM PST | | | | | 2100, Do not crush or chew | | [...] +-------+ +--------+---+---+ +-------+ +--------+---+---+ | Given | 12/13/19 | 0.4 mg | | | | | 19 8:16 | | | | | | PM PST | | | | +-------+ +--------+---+---+ +---+---+ | | | +---+---+ documented in this encounter
--- OUTSIDE RECORDS SUMMARY | ~2019-10-12 | XMS | Encounter Summary ---
Demographics + + + | Address | [address] [facility] [address] | | | [place] [address] | + + + | Home Phone [...] + | Sammi Kohler | ECON | [place] [address] | | + + + + + Care Team Providers + +------+ + | Care Oil Change Technician Name | Role | Phone | + +------+ + PCP | Unavailable | + +------+ + Encounter Details +--------+ + + + + | Date | Type | Department | Care Team | Description | +--------+ + + + + | 12/22/ | Emergency | [facility] | Martell Gold | Atypical chest pain; | | 2012 | | [facility] | MD [address] | Epigastric pain; | | | | [facility] | MASSIMO MCCAULEY | Gallstones | | | | [address] | [place] [address] | | | | | [place], [place] | [phone] | | | | | [address] | | | | | | [phone] | | | +--------+ + + + [...] Progress Notes Conversion Transaction, Provider Unknown - 12/22/2012 12:59 PM PSTFormatting of this note m ight be different from the original. Case Management by QUINN White at 12/22/12 3493 Author: QUINN White Service: (none) Author Type: Shoe Stock Associate Filed: 12/22/12 0706 Date of Service: 12/22/121258 Status: Signed Pourer Bull Ladle: QUINN White (Shoe Stock Associate) COLTON alert Rcvd pt with a total of 12 ED visits, pt does have pcp, ins docume nted in this encounter ED Notes Conversion Transaction, Provider Unknown - 12/22/2012 10:09 AM PSTFormatting of this note m ight be different from the original. ED Notes by Mel Barraza RN at 12/22/12 1009 Author: Mel Barraza RN Service: (none) Author Type: Registered Nurse Filed: 12/22/12 1010 Date of Service: 12/22/12 100 Status: Signed Pourer Bull Ladle: Mel Barraza RN (Registered Nurse) EMS IV RAC d/c, cath intact and bandage applies. Pt called a friend to come get him and ta ke him home. Mel Barraza RN 12/22/12 101 onver ivana Transaction, Provider Unknown - 12/22/2012 9:16 AM PST ED Notes by Mel Barraza RN at 12/22/12915 Author: Mel Barraza RN Service: (none) Author Type: Registered Nurse Filed: 12/22/12916 Date of Service: 12/22/12915 Status: Signed Pourer Bull Ladle: Mel Barraza RN (Registered Nurse) Pt returned from [place] Mel Barraza RN 12/22/12916 onver ivana Transaction, Provider Unknown - 12/22/2012 8:51 AM PST ED Notes by Mel Barraza RN at 12/22/12850 Author: Mel Barraza RN Service: (none) Author Type: Registered Nurse Filed: 12/22/1252 Date of Service: 12/22/12850 Status: Signed Pourer Bull Ladle: Mel Barraza RN (Registered Nurse) Spoke with Dr. Gold, metoprolol held due to slow HR. Per Dr. Gold, pt may go to US and then have hydralazine when he returns. Pt using urinal at this time. Mel Barraza RN 12/22/12 0852 orsyt Martell pugh MD - 12/22/2012 8:15 AM PSTFormatting of this note might be different from th e original. ED Provider Notes by Martell Gold MD at 12/22/12814 Author: Martell Gold MD Service: (none) Author Type: Physician Filed: 12/22/12 1420 Date of Service: 12/22/12814 Status: Signed Pourer Bull Ladle: Martell Gold MD (Physician) [facility] Department of Emergency Medicine History of Present Illness Patient Identification Kevyn Guzman is a 57 y.o. male. Patient information was obtained from patient and EMS personnel. History/Exam limitations: none. Patient presented to the Emergency Department by: [facility] 1723 Chief Complaint Chief Complaint Patient presents with Chest Pain Per EMS: Pt is complaining of hypertension since last night as well as a RUBIN. Pt took 4 ibup rofen last night. Pt woke up and is now complaining of 6/10 chest pain. Pt was given 2 nitro 's and 2 Aspirin en route. The patient complains of upper chest pain. Onset of symptoms was early this morning, with a improving course since that time. The symptoms are described to be of moderate severity. T he patient also complains of nausea upon eating, slight SOB, and slight epigastric pain. Pt has h/o A-fib, DM, and HTN Past Medical History Diagnosis Date Diabetes mellitus type II Atrial fibrillation Hypertension Hyperlipidemia Anxiety Depression WARD (obstructive sleep apnea) 08/11/2012 Basal cell carcinoma 09/26/2012 Unspecified visual disturbance Past Surgical History Procedure Date Unlisted procedure arthroscopy Knee surgery Leg surgery LLE Colonoscopy Cholecystectomy, laparoscopic 09/12/2012 Procedure: LAPAROSCOPIC - CHOLECYSTECTOMY; Surgeon: Jevon Vargas DO; Location: [facility]; Service: General; Laterality: N/A; Abdominal surgery Cholecystectomy Skin cancer excision 10/10/2012 Procedure: EXCISION - SKIN CANCER; Surgeon: Sy Fierro MD; Location: [facility] ; Service: Plastics; Laterality: Left; [...] nosebleed Throat: Negative for: mouth sores Cardiovascular/Respiratory: Positive for: chest pain and SOB Negative for: cough Gastrointestinal: Positive for: epigastric pain and nausea Negative for: vomiting, diarrhea, black or bloody stools Genitourinary: Negative for: dysuria, hematuria, urinary problems Musculoskeletal: Negative for: myalgias and arthralgias Skin: Negative for: laceration or lesion Neuro and psych: Negative for: fainting, head injury, seizure, trouble walking Endocrine/Heme/Lymph: Negative for: swollen lymph nodes, easy bruising Physical Exam BP 213/93 | Pulse 65 | Temp 98.3 F (36.8 C) (Oral) | Resp 22 | Ht 1.803 m (5' 11") | Wt 110 kg (242 lb 8.1 oz) | BMI 33.82 kg/m2 | SpO2 96% Vital signs: Hypertensive, otherwise normal Pulse Oximetry interpretation: Normal General: Alert, in no apparent distress, obese Eyes: Normal inspection, pupils equal and round, non-icteric ENT: Ears normal Nose normal Pharynx normal Neck: Normal inspection Supple No lymphadenopathy No meningismus Cardiovascular: Rate and rhythm normal, distant heart sounds No murmurs Respiratory: Breath sounds normal bilaterally Abdomen: Soft, mild epigastric ttp that reproduces symptoms, non-distended No guarding or rebound Back: Normal inspection Skin: Color normal Warm and dry No rash Neuro: No motor deficit No sensory deficit Medical Decision Making and Emergency Department Course ED Department Course Pt present with chest pain/epigastric pain. On exam pt has mild epigastric ttp that reprodu harrison symptoms. Exam and history and US today is C/W Gallstones. He is safe for outpatient management and work up. He does not need any further work up in the hospital setting and was referred to [facility] for further workup. 1010 Patient recheck. Patient is stable and feeling better at this time. I discussed all ED results and my clinical impression with the patient. Patient is ready for discharge. I advi sed patient to follow up with a PCP and we discussed the emergent signs and symptoms that wo uld necessitate a return to ED. All questions and concerns addressed. Will discharge home. Records Reviewed Old medical records. Nursing notes. Laboratory Evaluation Results Procedure Component Value Ref Range Date/Time Cardiac Panel [[id number]] (Abnormal) Collected:12/22/12 0800 Order Status:Completed Updated:12/22/12 0842 WBC 9.0 3.8 - 11.0 K/uL RBC 5.55 4.20 - 5.70 M/uL HGB 14.1 13.2 - 17.0 g/dL HCT 44.7 39.0 - 50.0 % MCV 80.6 80.0 - 100.0 fl MCH 25.5 (L) 27.0 - 34.0 pg MCHC 31.6 (L) 32.0 - 35.5 g/dL PLT 283 150 - 400 K/uL MPV 7.8 fl DIFF TYPE AUTOMATED NEUTROPHILS 53.0 % LYMPHOCYTES 32.9 % MONOCYTES 8.6 % EOSINOPHILS 4.2 % BASOPHILS 1.3 % NEUTROPHILS ABS 4.7 1.9 - 7.4 K/uL LYMPHOCYTES ABS 3.0 1.0 - 3.9 K/uL MONOCYTES ABS 0.8 0 - 0.8 K/uL EOSINOPHILS ABS 0.4 0 - 0.5 K/uL BASOPHILS ABS 0.1 0 - 0.1 K/uL SODIUM 140 135 - 143 mmol/L POTASSIUM 3.7 3.5 - 4.9 mmol/L CHLORIDE 102 99 - 109 mmol/L CO2 28 23 - 32 mmol/L ANION GAP AGAP 14 5 - 20 mmol/L GLUCOSE 258 (H) 65 - 99 mg/dL BUN 15 8 - 25 mg/dL CREATININE 1.21 0.70 - 1.30 mg/dL BUN/CREAT 12 CALCIUM 8.9 8.5 - 10.2 mg/dL TOTAL PROTEIN 7.8 6.3 - 8.2 g/dL Albumin 3.6 3.6 - 5.0 g/dL GLOBULIN 4.2 1.3 - 4.9 g/dL A/G 0.9 (L) 1.0 - 2.4 TBIL 0.3 0.1 - 1.5 mg/dL ALK PHOS 110 35 - 115 U/L AST 19 10 - 45 U/L ALT 22 10 - 65 U/L EGFR >60 >60 mL/min/1.73m2 CPK 117 55 - 400 U/L INR 1.0 APTT 33 24 - 40 seconds MMB 2.5 0.5 - 3.6 ng/mL CK-MB Index 2.1 POC cardiac troponin [[id number]] Collected:12/22/12818 Order Status:Completed Updated:12/22/12833 POC CARDIAC TROPONIN 0.00 0.00 - 0.10 ng/mL Radiology and EKG Evaluation Imaging Results US Abdomen, Gallbladder (Final result) Result time:12/22/12945 Final result by Rad Results In Richard (12/22/12 09:46:24) Impression: 1. Several small gallstones about the collapsed gallbladder are favored, but there is no bi liary ductal dilatation or localizing pain. 2. Small new simple cyst anterior to the fatty replaced liver Narrative: HISTORY: 57-year-old male with pain TECHNIQUE: Limited abdominal ultrasound, focused on the gallbladder, biliary system and adj acent structures. Prior examination for comparison: 11 September 2012. FINDINGS: Pancreas is normal as seen, but portions the talar obstructed by gas. Most of the pancreas on image 5 is appreciated What is seen of the liver demonstrates normal echotexture. There is a ventral simple cyst o n image 21 which measures about 2.8 cm. New since the prior ultrasound and the CT from last year, but simple and nonaggressive imaging although the explanation for this finding isn't c lear, the location is unusual. No focal solid lesion. No ascites or fibrosis. There are fatty infiltrated. Gallbladder limited, patient is not fasting. Wall 2.2 mm.The gallbladder is not well disten ded. Several punctate densities are favored, small gallstones without biliary obstruction. Common bile duct measures 2.2 mm. No dilatation of the intra-or extrahepatic biliary ductal system. Body habitus is limiting XR Chest AP Portable (Final result) Result time:12/22/12 0839 Final result by Rad Results In Richard (12/22/12 08:39:30) Impression: 1. Some slight asymmetric opacity in the peripheral left base. May represent atelectasis or scarring. If infection is suspect or symptoms not clinically explained, consider a PA and lateral valeri m or surveillance exam 2. No edema or failure. Narrative: HISTORY:57 year-old male, pain TECHNIQUE: AP portable upright radiographic examination of the chest, 22 December 2012. Pr ior study for comparison -- 07 December 2012 FINDINGS: Mediastinum -- stable with mild prominence of the AP window and left heart border. Some vas cular calcification. Lung markings are somewhat coarse.Stable since the prior examination, with some atelectasis or parenchymal disease in the left base preferentially. Pulmonary vascular markings are nor mal . Airway intact No infiltrate new or evidence of advanced pulmonary venous hypertension. Lung volumes are s ymmetric and preserved. Degenerative change the spine and shoulders again noted.. EKG done en route shows no changes from previous EKG EKG Time: 0815 Normal sinus rhythm with a rate of 68 ED Diagnoses Final diagnoses Atypical chest pain Epigastric pain Gallstones Disposition: ED Disposition Discharge Condition at discharge: Stable Follow-up Information Follow up With Details Comments Contact Info Jerrell Diego DO Call [address] [facility] [phone] [facility] Emergency Department If symptoms worsen [address] [place] [id number] Discharge Medications: New Prescriptions FAMOTIDINE (PEPCID) 20 MG TABLET Take 1 tablet by mouth 2 (two) times daily. Additional Documentation Procedures Attending Note: Documentation assistance provided by Renee Dela Cruz (Scribe). Information recorded by the scribe has been reviewed and validated by . I aruna laughlin with its contents. MD Martell Munroe MD 12/22/12 1420 onversion Transa ction, Provider Unknown - 12/22/2012 8:12 AM PST ED Notes by Mel Barraza RN at 12/22/12811 Author: Mel Barraza RN Service: (none) Author Type: Registered Nurse Filed: 12/22/12811 Date of Service: 12/22/12811 Status: Signed Pourer Bull Ladle: Mel Barraza RN (Registered Nurse) Bed:06
Expected date:
Expected time:
Means of arrival:
[...] | | | | | [place], | | | | | | [place] [address] | | | | | | [phone] | | | | | | | | +--------+ + + + + documented as of this encounter Procedures + +--------+ + + + | Procedure Name | Priori | Date/Time | Associated Diagnosis | Comments | | | ty | | | | + +--------+ + + + | US ABDOMEN LIMITED | Routin | 12/22/2012 | | Results for this | | | e | 9:38 AM | | procedure are in the | | | | PST | | results section. | + +--------+ + + + | XR CHEST 1 VIEW | Routin | 12/22/2012 | | Results for this | | | e | 8:31 AM | | procedure are in the | | | | PST | | results section. | + +--------+ + + + | ECG 12 LEAD | Routin | 12/22/2012 | | Results for this | | | e | 8:15 AM | | procedure are in the | | | | PST | | results section. | + +--------+ + + + documented in this encounter Results US Abdomen Limited (12/22/2012 9:38 AM PST) + + | Specimen | + + | | + + + + | Addenda | + + | Addendum by Elias Underwood MD on 01/17/2013 7:51 AM By clinical report, the | | patient is post cholecystectomy. It is therefore probable that the findings described | | here by the technologist on the static imaging represents postprocedural change. A | | subsequent CT of 05 January 2013 supports this. Significant gratitude extended to | | Dr. Franko Ramírez for identifying this discordance. | + + + + + | Impressions | Performed At | + + + | 1. Several small gallstones about the collapsed gallbladder are | | | favored, but there is no biliary ductal dilatation or localizing pain. | | | 2. Small new simple cyst anterior to the fatty replaced liver | | | | | + + + + + + | Narrative | Performed At | + + + | HISTORY: 57-year-old male with pain TECHNIQUE: Limited abdominal | | | ultrasound, focused on the gallbladder, biliary system and adjacent | | | structures. Prior examination for comparison: 11 September 2012. | | | FINDINGS: Pancreas is normal as seen, but portions the talar | | | obstructed by gas. Most of the pancreas on image 5 is appreciated | | | What is seen of the liver demonstrates normal echotexture. There is a | | | ventral simple cyst on image 21 which measures about 2.8 cm. New since | | | the prior ultrasound and the CT from last year, but simple and | | | nonaggressive imaging although the explanation for this finding | | | isn't clear, the location is unusual. No focal solid lesion. No | | | ascites or fibrosis. There are fatty infiltrated. Gallbladder | | | limited, patient is not fasting. Wall 2.2 mm.The gallbladder is not | | | well distended. Several punctate densities are favored, small | | | gallstones without biliary obstruction. Common bile duct measures | | | 2.2 mm. No dilatation of the intra-or extrahepatic biliary ductal | | | system. Body habitus is limiting | | + + + + + | Procedure Note | + + | Richard, Rad Conversion - 09/28/2018 3:24 PM PDT HISTORY: 57-year-old male with pain | | TECHNIQUE: Limited abdominal ultrasound, focused on the gallbladder, biliary system and | | adjacent structures. Prior examination for comparison: 11 September 2012. FINDINGS: Pancreas | | is normal as seen, but portions the talar obstructed by gas. Most of the pancreas on | | image 5 is appreciated What is seen of the liver demonstrates normal echotexture. There | | is a ventral simple cyst on image 21 which measures about 2.8 cm. New since the prior | | ultrasound and the CT from last year, but simple and nonaggressive imaging although the | | explanation for this finding isn't clear, the location is unusual. No focal solid | | lesion. No ascites or fibrosis. There are fatty infiltrated. Gallbladder limited, | | patient is not fasting. Wall 2.2 mm.The gallbladder is not well distended. Several | | punctate densities are favored, small gallstones without biliary obstruction. Common | | bile duct measures 2.2 mm. No dilatation of the intra-or extrahepatic biliary ductal | | system. Body habitus is limiting IMPRESSION: 1. Several small gallstones about the | | collapsed gallbladder are favored, but there is no biliary ductal dilatation or | | localizing pain. 2. Small new simple cyst anterior to the fatty replaced liver | | | |Gallbladder limited, patient is not fasting. Wall 2.2 mm.The gallbladder is not well disten ded. Several punctate densities are favored, small gallstones without biliary obstruction. | | | |Common bile duct measures 2.2 mm. No dilatation of the intra-or extrahepatic biliary ductal system. | | | |Body habitus is limiting | | | |IMPRESSION: | | | |1. Several small gallstones about the collapsed gallbladder are favored, but there is no bi liary ductal dilatation or localizing pain. | | | |2. Small new simple cyst anterior to the fatty replaced liver | | | | | + + XR Chest 1 Vw (12/22/2012 8:31 AM PST) + + | Specimen | + + | | + + + + + | Impressions | Performed At | + + + | 1. Some slight asymmetric opacity in the peripheral left base. | | | May represent atelectasis or scarring. If infection is suspect or | | | symptoms not clinically explained, consider a PA and lateral film or | | | surveillance exam 2. No edema or failure. Electronically | | | signed by Elias Underwood MD on 12/22/2012 8:39 AM | | + + + + + + | Narrative | Performed At | + + + | HISTORY:57 year-old male, pain TECHNIQUE: AP portable upright | | | radiographic examination of the chest, 22 December 2012. Prior study | | | for comparison -- 07 December 2012 FINDINGS: Mediastinum -- | | | stable with mild prominence of the AP window and left heart border. | | | Some vascular calcification. Lung markings are somewhat | | | coarse.Stable since the prior examination, with some atelectasis or | | | parenchymal disease in the left base preferentially. Pulmonary | | | vascular markings are normal . Airway intact No infiltrate new or | | | evidence of advanced pulmonary venous hypertension. Lung volumes are | | | symmetric and preserved. Degenerative change the spine and | | | shoulders again noted.. | | + + + + + | Procedure Note | + + | Richard, Rad Conversion - 09/28/2018 3:24 PM PDT HISTORY:57 year-old male, pain | | TECHNIQUE: AP portable upright radiographic examination of the chest, 22 December 2012. | | Prior study for comparison -- 07 December 2012 FINDINGS: Mediastinum -- stable with mild | | prominence of the AP window and left heart border. Some vascular calcification. Lung | | markings are somewhat coarse.Stable since the prior examination, with some atelectasis | | or parenchymal disease in the left base preferentially. Pulmonary vascular markings are | | normal . Airway intact No infiltrate new or evidence of advanced pulmonary venous | | hypertension. Lung volumes are symmetric and preserved. Degenerative change the spine | | and shoulders again noted.. IMPRESSION: 1. Some slight asymmetric opacity in the | | peripheral left base. May represent atelectasis or scarring. If infection is suspect or | | symptoms not clinically explained, consider a PA and lateral film or surveillance exam | | 2. No edema or failure. | | 8:39 AM | | | |IMPRESSION: | | | |1. Some slight asymmetric opacity in the peripheral left base. May represent atelectasis or scarring. | | | |If infection is suspect or symptoms not clinically explained, consider a PA and lateral valeri m or surveillance exam | | | |2. No edema or failure. | | | | | + + ECG 12 lead (12/22/2012 8:15 AM PST) + + + + + [...] of | | | | | | 07-DEC-2012 17:05,No | | | | | | significant [...] (500), | | | | | | clinical editor ZAYNAB HUNT | | | | | | (4) on 12/22/2012 | | | | | | 1:30:57 PM | | | | + + + + + + + + | Specimen | + + | | + + + + + | Narrative | Performed At | + + + | Historically converted procedure from [facility] Epic environment | EXTERNAL LAB | [...] Other chest pain | + + | Epigastric pain Abdominal pain, epigastric | + + | Gallstones Calculus of gallbladder without mention of cholecystitis or obstruction | + + documented in this encounter
--- OUTSIDE RECORDS SUMMARY | ~2019-10-12 | XMS | Encounter Summary ---
Demographics + + + | Address | [address] | | | [place] [address] | + + + | Home Phone [...] + | Sammi Kohler | ECON | [place] [address] | | + + + + + Care Team Providers + +------+ + | Care Product Marketing Director Name | Role | Phone | + +------+ + PCP | Unavailable | + +------+ + Encounter Details +--------+ + + + + | Date | Type | Department | Care Team | Description | +--------+ + + + + | 05/26/ | [facility] | [facility] | Bruno Pearson | Chest pain, | | 2014 - | Encounter | [facility] [address] | atypical; COPD | | | | [address] | [address]VD [place], [place] | (chronic obstructive | | 05/27/ | | [place], [place] | [address] | pulmonary disease) | | 2013 | | [id number] | | (HCC); GIB | | | | [phone] | | (gastrointestinal | | | | | | bleeding); HTN | | | | | | (hypertension); | | | | | | Paroxysmal atrial | | | | | | fibrillation (HCC); | | | | | | Labile hypertension; | | | | | | Lower GI bleed; DM | | | | | | type 2 (diabetes | | | | | | mellitus, type 2) | | | | | | (HCC); Hypertension; | | | | | | Hyperglycemia; | | | | | | Accelerated | | | | | | hypertension; Atrial | | | | | | fibrillation (HCC); | | | | | | Chest pain; Chronic | | | | | | back pain | +--------+ + + + + [...] documented as of this encounter Discharge Summaries Augustine Mukherjee MD - 05/27/2013 2:23 PM PDTFormatting of this note might be differe nt from the original. Discharge Summaries by Augustine Mukherjee MD at 05/27/13 1423 Author: Augustine Mukherjee MD Service: Hospitalist Author Type: Physician Filed: 05/27/13 1722 Date of Service: 05/27/131422 Status: Signed Conference Specialist: Augustine Mukherjee MD (Physician) [facility] Service: Hospitalist Discharge Summary Date of Admission: 05/26/2013 Date of Discharge: 05/27/2013, 2 PM Discharge Provider: AUGUSTINE MUKHERJEE MD Treatment Team: Admitting Provider: Bruno Pearson MD Discharge Diagnoses: Principal Problem (Resolved): *Chest pain, atypical Active Problems: Paroxysmal atrial fibrillation GERD without esophagitis Resolved Problems: Accelerated hypertension Final Diagnoses: Chest Pains, GERD, Atrial Fibrillation, Paroxysmal, Procedures: * No surgery found * Significant Diagnostic Studies: CBC, CMP, CT Chest BRIEF HISTORY OF PRESENTATION: (As per admitting HPI) Norah Gr is a 57 y.o. male with significant past medical history of diabetes mellitus, hypertension, hyperlipidemia, obstructive sleep apnea noncompliant with CPAP, and paroxysma l atrial fibrillation. In February 2013, the patient had a GI bleed, he is on Plavix for atri al fibrillation, Developmentally delayed and lives in a retirement. Patient was at [employer] to day when he had substernal chest pain sharp in quality, located in the central, substernal a quang with no radiation. He has lower back pain as well that started this morning, currently 2 /10, but was worse earlier, no shortness of breath or palpitations, movement make pain worse , deep breathing doesn't affect the pain. He never had Heart attack in the past. He also has been complaining of blood streaks and black stool that was noted in stool 2 days ago. No ab dominal pain, no nausea or vomiting, no dizziness, no hematemesis. He had EGD done on 2013 that showed 1.2 cm nodule in the gastroesophageal junction that was thought to be a s ource of bleeding. He also had a colonoscopy that showed rectal ulcers. He had this nodule r emoved in [facility] in [place]. Dr. Gibson from GI used to follow the patient. He had recent admission for Chest pain on April 2013, had nuclear stress test that showed f ixed defect within the inferior wall is probably due to diaphragmatic attenuation artifact, with infarct in this region thought less likely. No definitive reversible defects to suggest left ventricular wall ischemia, and Left ventricular stress ejection fraction is calculated at 55%. HOSPITAL COURSE: On the medical floor he was closely monitored. Serial Cardiac enzymes and Troponin's were c hecked and all were with in normal limits and stable. A NM stress test was not ordered since he had one done in April 2013. The results were reviewed and found to be stable with no sig ns of reversible ischemia. A CT scan of the chest was also done which showed no evidence of pulmonary embolism. He had complaint of rectal bleed two days ago but had remained stable afterwards. His H&H remained stable and infact improved compared to the day of admission. He had seen dr. Gibson in the past and was recommended to follow up with him as needed. He was pre viously of Plavix was was discontinued and he was recommended to continue with baby ASA jaden y. He did not have any further chest pain symptoms and upon further questioning it seemed he has GERD and heartburn symptoms causing chest pains. Other differentials included CAD, PE a nd Dissection which were ruled out. He requested to be discharged and was feeling better alr tristan. His BP was slightly elevated for which Hydralazine was given as needed which helped. He was stable hemodynamically which is why discharge planning was discussed with the patien t with recommendations to follow up with the primary care physician preferably in one week. Past Medical History Diagnosis Date Diabetes mellitus [...] - CHOLECYSTECTOMY; Surgeon: Jevon Vargas DO; Location: [facility]; Service: General; Laterality: N/A; Abdominal surgery Cholecystectomy Skin cancer excision 10/10/2012 Procedure: EXCISION - SKIN CANCER; Surgeon: yS Fierro MD; Location: [facility] ; Service: Plastics; Laterality: Left; upper arm and upper back w/frozen section Esophagogastroduodenoscopy 03/03/2013 Procedure: ESOPHAGOGASTRODUODENOSCOPY; Surgeon: Howie Gibson MD; Location: [facility]; S ervice: Gastroenterology; Laterality: N/A; Colonoscopy 03/04/2013 Procedure: COLONOSCOPY; Surgeon: Howie Gibson MD; Location: [facility]; Service: Gastroe nterology; Laterality: N/A; No Known Allergies DISCHARGE EXAM Vital Signs: BP 180/79 | Pulse 52 | Temp 97.9 F (36.6 C) (Oral) | Resp 18 | Ht 1.803 m (5' 11") | Wt 107.321 kg (236 lb 9.6 oz) | BMI 33.01 kg/m2 | SpO2 96% Physical Exam Vitals reviewed. Constitutional: He is oriented to person, place, and time. He appears well-developed and we ll-nourished. No distress. HENT: Head: Normocephalic and atraumatic. Right Ear: External ear normal. Left Ear: External ear normal. Nose: Nose normal. Mouth/Throat: Oropharynx is clear and moist. No oropharyngeal exudate. Eyes: Conjunctivae normal and EOM are normal. Pupils are equal, round, and reactive to ligh t. Right eye exhibits no discharge. Left eye exhibits no discharge. No scleral icterus. Neck: Normal range of motion. Neck supple. No JVD present. No tracheal deviation present. N o thyromegaly present. Cardiovascular: Regular rhythm and normal heart sounds. Exam reveals no gallop and no fric tion rub. No murmur heard. Bradycardiac, no murmur at this time. Pulmonary/Chest: Effort normal and breath sounds normal. No stridor. No respiratory distres s. He has no wheezes. He has no rales. He exhibits no tenderness. Abdominal: Soft. Bowel sounds are normal. He exhibits no distension and no mass. There is n o tenderness. There is no rebound and no guarding. Musculoskeletal: Normal range of motion. He exhibits no edema and no tenderness. Lymphadenopathy: He has no cervical adenopathy. Neurological: He is alert and oriented to person, place, and time. He has normal reflexes. He displays normal reflexes. No cranial nerve deficit. He exhibits normal muscle tone. Coord ination normal. Skin: Skin is dry. No rash noted. He is not diaphoretic. No erythema. No pallor. Psychiatric: He has a normal mood and affect. His behavior is normal. Judgment and thought content normal. DATA Recent Results (from the past 24 hour(s)) POCT GLUCOSE Collection Time 05/26/13 10:57 PM Component Value Range GLUCOSE,POC SCREEN 219 (*) 65 - 99 mg/dL TROPONIN I Collection Time 05/27/13 12:10 AM Component Value Range TROPONIN I <0.020 0.00 - 0.10 ng/mL TROPONIN I Collection Time 05/27/13 5:21 AM Component Value Range TROPONIN I <0.020 0.00 - 0.10 ng/mL BASIC METABOLIC PANEL Collection Time 05/27/13 5:21 AM Component Value Range SODIUM 137 135 - 143 mmol/L POTASSIUM 3.9 3.5 - 4.9 mmol/L CHLORIDE 104 99 - 109 mmol/L CO2 29 23 - 32 mmol/L ANION GAP AGAP 8 5 - 20 mmol/L GLUCOSE 176 (*) 65 - 99 mg/dL BUN 18 8 - 25 mg/dL CREATININE 1.24 0.70 - 1.30 mg/dL BUN/CREAT 15 CALCIUM 9.0 8.5 - 10.2 mg/dL EGFR >60 >60 mL/min/1.73m2 CBC W/AUTO DIFF (REFLEX TO MANUAL) Collection Time 05/27/13 5:21 AM Component Value Range WBC 8.4 3.8 - 11.0 K/uL RBC 4.83 4.20 - 5.70 M/uL HGB 13.0 (*) 13.2 - 17.0 g/dL HCT 40.3 39.0 - 50.0 % MCV 83.4 80.0 - 100.0 fl MCH 26.9 (*) 27.0 - 34.0 pg MCHC 32.3 32.0 - 35.5 g/dL RDW SD 43.8 37 - 53 fl PLT 223 150 - 400 K/uL MPV 7.6 DIFF TYPE AUTOMATED NEUTROPHILS 53.9 LYMPHOCYTES 30.9 MONOCYTES 10.3 EOSINOPHILS 4.3 BASOPHILS 0.6 NEUTROPHILS ABS 4.5 1.9 - 7.4 K/uL LYMPHOCYTES ABS 2.6 1.0 - 3.9 K/uL MONOCYTES ABS 0.9 (*) 0 - 0.8 K/uL EOSINOPHILS ABS 0.4 0 - 0.5 K/uL BASOPHILS ABS 0.0 0 - 0.1 K/uL MORPHOLOGY HEMOGLOBIN A1C Collection Time 05/27/13 5:21 AM Component Value Range HEMOGLOBIN A1C 7.3 (*) 4.0 - 6.0 % ESTIMATED AVG GLUCOSE 163 MAGNESIUM Collection Time 05/27/13 5:21 AM Component Value Range MAGNESIUM 1.9 1.7 - 2.4 mg/dL PHOSPHOROUS Collection Time 05/27/13 5:21 AM Component Value Range PHOSPHORUS 3.2 2.3 - 4.8 mg/dL POCT GLUCOSE Collection Time 05/27/13 5:26 AM Component Value Range GLUCOSE,POC SCREEN 178 (*) 65 - 99 mg/dL EKG STANDARD 12 LEAD Collection Time 05/27/13 5:40 AM Component Value Range Ventricular Rate 46 Atrial Rate 46 P-R Interval 184 QRS Duration 92 Q-T Interval 508 QTC Calculation (Bezet) 444 Calculated P Kersey 44 Calculated R Kersey 49 Calculated T Kersey 63 Diagnosis Value: Baseline Artifact Sinus bradycardia Nonspecific ST and/or T wave abnormalities Borderline ECG Otherwise normal ECG When compared with ECG of 26-MAY-2013 09:25, Nonspecific ST and/or T wave abnormalities less or no longer evident since previous ECG Anterior leads Confirmed by MEMO DAHL ([id number]) on 05/27/2013 7:57:48 AM ECHO CARDIAC ADULT COMPLETE Collection Time 05/27/13 7:15 AM Component Value Range LV EF >70 (*) 50-70 % POCT GLUCOSE Collection Time 05/27/13 11:05 AM Component Value Range GLUCOSE,POC SCREEN 166 (*) 65 - 99 mg/dL TROPONIN I Collection Time 05/27/13 11:46 AM Component Value Range TROPONIN I <0.020 0.00 - 0.10 ng/mL CT CHEST IMPRESSION: 1. No evidence of pulmonary embolism. 2. Status post cholecystectomy. Follow up with your primary care physician preferably in one week for a routine evaluation. Follow up with Dr. Gibson as needed for any bleeding episodes. Take your home medications and the current lift as prescribed. Take a baby ASA daily and monitor for any rectal bleeding. Take Omeprazole twice a day for heart burn symptoms. Disposition: Home Condition: Stable Code Status: Full Code Discharge Instructions Diet cardiac diabetic Follow up: Jerrell Gutiérrez DO Schedule an appointment as soon as possible for a visit in 1 week Howie Gibson MD [address] [address] Schedule an appointment as soon as possible for a visit in 1 week Medication List As of 05/27/2013 5:22 PM START taking these medications aspirin 81 MG chewable tablet QTY: 30 tablet Refills: 0 Take 1 tablet by mouth daily with breakfast. omeprazole 20 MG capsule QTY: 60 capsule Refills: 1 Commonly known as: PRILOSEC Take 1 capsule by mouth 2 (two) times daily. CONTINUE taking these medications ARIPiprazole 10 MG tablet Refills: 0 Commonly known as: ABILIFY calcium carbonate 500 MG chewable tablet Refills: 0 Commonly known as: TUMS cloNIDine 0.2 MG tablet QTY: 90 tablet Refills: 0 Commonly known as: CATAPRES Take 1 tablet by mouth 3 (three) times daily. diltiazem 180 MG 24 hr capsule QTY: 90 capsule Refills: 3 Commonly known as: CARDIZEM CD Take 1 capsule by mouth daily. docusate sodium 100 MG capsule Refills: 0 Commonly known as: COLACE DULERA 100-5 MCG/ACT Aero Refills: 0 Generic drug: Mometasone Furo-Formoterol Fum fenofibrate 160 MG tablet Refills: 0 Commonly known as: TRICOR fluticasone-salmeterol 250-50 MCG/DOSE QTY: 2 each Refills: 1 Commonly known as: ADVAIR Inhale 1 puff into the lungs every 12 (twelve) hours. HYDROcodone-acetaminophen 5-325 MG per tablet Refills: 0 Commonly known as: NORCO insulin glargine 100 UNIT/ML injection Refills: 0 Commonly known as: LANTUS lisinopril 40 MG tablet QTY: 30 tablet Refills: 0 Commonly known as: ZESTRIL Take 1 tablet by mouth daily. loperamide 2 MG capsule Refills: 0 Commonly known as: IMODIUM LORazepam 0.5 MG tablet Refills: 0 Commonly known as: ATIVAN nebivolol 10 MG tablet Refills: 0 Commonly known as: BYSTOLIC nitroGLYCERIN 0.4 MG SL tablet Refills: 0 Commonly known as: NITROSTAT NOVOLOG 100 UNIT/ML injection QTY: 10 mL Refills: 5 Generic drug: insulin aspart INJ 3U SUB-Q TID(AC) AND INJECT SUBCUTANEOUSLY PER SLIDING SCALE 1-70= 2U, 71-100=3U, 101- 120= 4U, 121-150=5U, 151-180=6U, 181-210= 7U, 211- PARoxetine 40 MG tablet Refills: 0 Commonly known as: PAXIL * polyethylene glycol packet Refills: 0 Commonly known as: GLYCOLAX * polyethylene glycol powder QTY: 527 g Refills: 5 Commonly known as: GLYCOLAX DISSOLVE 17GM IN LIQUID AND DRINK BY MOUTH EVERY DAY pravastatin 20 MG tablet Refills: 0 Commonly known as: PRAVACHOL tiotropium 18 MCG inhalation capsule Refills: 0 Commonly known as: SPIRIVA TRADJENTA 5 MG tablet Refills: 0 Generic drug: linagliptin VENTOLIN HFA IN Refills: 0 * Notice: This list has 2 medication(s) that are the same as other medications prescribed for you. Read the directions carefully, and ask your doctor or other care provider to review them with you. STOP taking these medications clopidogrel 75 MG tablet Commonly known as: PLAVIX famotidine 20 MG tablet Commonly known as: PEPCID Where to get your medications These are the prescriptions that you need to tile picker. You may get these medications from any pharmacy. omeprazole 20 MG capsule Information on where to get these meds is not yet available. Ask your nurse or doctor. aspirin 81 MG chewable tablet Discharge took more than 35 minutes, to include final examination, discussion of admission, and preparation of prescriptions, instructions for on-going care, follow-up and documentati on of discharge summary. AUGUSTINE MUKHERJEE MD 05/27/2013 documented in this encounter Medications at Time [...] Progress Notes Conversion Transaction, Provider Unknown - 05/27/2013 3:44 PM PDTFormatting of this note m ight be different from the original. Nurse Progress Note by Yanna Flores RN at 05/27/13 1544 Author: Yanna Flores RN Service: (none) Author Type: Registered Nurse Filed: 05/27/13 1545 Date of Service: 05/27/13 154 Status: Signed Conference Specialist: Yanna Flores RN (Registered Nurse) Patient eager to discharge home. DC instructions reviewed with patient and states vickyan shreya. Telemetry unit notified of patient to discharge and will be off of tele permanently. D ischarge orders are placed. IV discontinued, pressure applied. 05/27/2013 3:45 PM YANNA SAINI RN onver [facility]ana Transaction, Provider Unknown - 05/27/2013 3:00 PM PDT Nurse Progress Note by Yanna Flores RN at 05/27/13 1500 Author: Yanna Flores RN Service: (none) Author Type: Registered Nurse Filed: 05/27/13 1501 Date of Service: 05/27/13 1500 Status: Signed Conference Specialist: Yanna Flores RN (Registered Nurse) Pt has been feeling unwell for about three hrs, bp 170s-220s and dry heaving, but insists o n going home. 05/27/2013 3:01 PM YANNA FLORES RN onver ivana Transaction, Provider Unknown - 05/27/2013 9:02 AM PDT Case Management by QUINN Bansal at 05/27/13901 Author: QUINN Bansal Service: (none) Author Type: Molding Sander Filed: 05/27/13902 Date of Service: 05/27/13901 Status: Signed Conference Specialist: QUINN Bansal (Molding Sander) Pt is a resident of [facility] and will return there upon discharge. CM faxed pt's current info to [facility] and will continue to coordinate with them. 05/27/13855 Discharge Planning Evaluation Admitting Diagnosis Chest Pain Readmission No Type of Residence Assisted living;Other (Comment) ([facility]) Bathrooms on 1st Floor 1-Full Caregiver after Discharge Yes Relationship to Patient [facility] Staff Mental Status Oriented Anticipated Discharge Plan Post Acute Care Needs None at this time Resources Financial concerns No Transportation issues No Patient/Family concerns No Prescription Plan Yes Anticipated Disposition Facility Type Assisted living/Adult family home Met with: Patient and discussed discharge planning, Pt is a 57 y.o., male Patient's PCP is: JERRELL GUTIÉRREZ Patient's insurance: Medicare Coverage concerns: None Medication coverage/concerns: None Community resources utilized / needed: None Assistance in transportation: Not needed. Identification of any specific education / training: None Barriers to Discharge / Alternative housing needed: None [place]tic[place]ated [place] [facility] Transaction, Provider Unknown - 05/26/2013 6:43 PM PDT Progress Notes by Brandi Moser RPH at 05/26/131842 Author: Brandi Moser RPH Service: (none) Author Type: Pharmacist Filed: 05/26/131842 Date of Service: 05/26/131842 Status: Signed Conference Specialist: Brandi Moser RPH (Pharmacist) Clinical Pharmacy Note: Renal Monitoring Norah Gr 57 y.o. male Ht Readings from Last 1 Encounters: 05/26/13 1.803 m (5' 11") Wt Readings from Last 1 Encounters: 05/26/13 107.956 kg (238 lb) CREATININE: 1.24 (05/26/13 0940) Estimated creatinine clearance - Cockcroft-Gault CrCl: 81.2 mL/min Pharmacy dosing for renal function per Dr. Decker. Currently, there are no medications needing to be adjusted. Pharmacy will continue to monit or for changes in medication orders and in renal function and adjust accordingly. Brandi Moser, [facility] 05/26/2013 6:43 PM docume nted in this encounter H&P Notes Bruno Pearson MD - 05/26/2013 3:32 PM PDTFormatting of this note might be different f rom the original. H&P by Bruno Pearson MD at 05/26/131531 Author: Bruno Pearson MD Service: (none) Author Type: Physician Filed: 05/26/132055 Date of Service: 05/26/131531 Status: Addendum Conference Specialist: Bruno Pearson MD (Physician) Related Notes: Original Note by Bruno Pearson MD (Physician) filed at 05/26/132051 [facility] Service: Hospitalist Admission History & Physical Pt: Norah Gr AGE/SEX: 57 y.o. male ROOM: PCP: JERRELL GUTIÉRREZ : 1955 TODAY'S DATE: 05/26/2013 Date of Admission: 05/26/2013 Chief Complaint: Chest pain since this morning. History of Present Illness: The patient is a 57 y.o. male with significant past medical history of diabetes mellitus, hypertension, hyperlipidemia, obstructive sleep apnea noncompliant with CPAP, and paroxysmal atrial fibrillation. In February 2013, the patient had a GI bleed, he is on Plavix for atria l fibrillation, Developmentally delayed and lives in a retirement. Patient was at [employer]ism today when he had substernal chest pain sharp in quality, located in the central, substernal area with no radiation. He has lower back pain as well that started this morning, currently 2/10, but was worse earlier, no shortness of breath or palpitations , movement make pain worse, deep breathing doesn't affect the pain. He never had Heart attac k in the past. He also has been complaining of blood streaks and black stool that was noted in stool 2 day s ago. No abdominal pain, no nausea or vomiting, no dizziness, no hematemesis. He had EGD done on February 2013 that showed 1.2 cm nodule in the gastroesophageal junction that was thought to be a source of bleeding. He also had a colonoscopy that showed rectal ul cers. He had this nodule removed in [facility] in [place]. Dr. Gibson from GI used to f ollow the patient. He had recent admission for Chest pain on April 2013, had nuclear stress test that showed f ixed defect within the inferior wall is probably due to diaphragmatic attenuation artifact, with infarct in this region thought less likely. No definitive reversible defects to suggest left ventricular wall ischemia, and Left ventricular stress ejection fraction is calculated at 55%. PMHx: Past Medical History Diagnosis Date Diabetes mellitus type II Atrial fibrillation Hypertension Hyperlipidemia Anxiety Depression WARD (obstructive sleep apnea) 08/11/2012 Basal cell carcinoma 09/26/2012 Unspecified visual disturbance Renal failure GIB (gastrointestinal bleeding) 03/02/2013 ARF (acute renal failure) 03/02/2013 COPD (chronic obstructive pulmonary disease) 03/02/2013 Development delay PSHx: Past Surgical History Procedure Date Unlisted procedure arthroscopy Knee surgery Leg surgery LLE Colonoscopy Cholecystectomy, laparoscopic 09/12/2012 Procedure: LAPAROSCOPIC - CHOLECYSTECTOMY; Surgeon: Jevon Vargas DO; Location: [facility]; Service: General; Laterality: N/A; Abdominal surgery Cholecystectomy Skin cancer excision 10/10/2012 Procedure: EXCISION - SKIN CANCER; Surgeon: Sy Fierro MD; Location: [facility] ; Service: Plastics; Laterality: Left; upper arm and upper back w/frozen section Esophagogastroduodenoscopy 03/03/2013 Procedure: ESOPHAGOGASTRODUODENOSCOPY; Surgeon: Howie Gibson MD; Location: [facility]; S ervice: Gastroenterology; Laterality: N/A; Colonoscopy 03/04/2013 Procedure: COLONOSCOPY; Surgeon: Howie Gibson MD; Location: [facility]; Service: Gastroe nterology; Laterality: N/A; Prior To admission Meds: Prior [...] (three) times daily. 03/05/13 Scott Martínez MD clopidogrel (PLAVIX) 75 MG tablet 1 TAB BY MOUTH EVERY DAY 04/23/13 Bang Yeh MD diltiazem (CARDIZEM CD) 180 MG 24 hr capsule Take 1 capsule by mouth daily. 05/19/13 05/19/14 Zach Tena MD diltiazem (CARDIZEM CD) 240 MG 24 hr capsule Take 240 mg by mouth daily. Historical Prov ider docusate sodium (COLACE) 100 MG capsule Take 100 mg by mouth nightly. Historical Provide r famotidine (PEPCID) 20 MG tablet 1 TAB BY MOUTH 2 TIMES DAILY 05/10/13 Bang Yeh MD fenofibrate (TRIGLIDE) 160 MG tablet Take 160 mg by mouth daily. Historical Provider fluticasone-salmeterol (ADVAIR DISKUS) 250-50 MCG/DOSE AEPB Inhale 1 puff into the lungs ev wilbert 12 (twelve) hours. 09/14/12 Augustine Mukherjee MD HYDROcodone-acetaminophen (NORCO) 5-325 MG per tablet [...] 181-210= 7U, 211- 04/23/13 Ramesh Yeh MD pantoprazole (PROTONIX) 40 MG tablet Take 1 [...] lungs daily. Histo rical Provider Medications scheduled: sodium chloride 10 mL Intravenous Q8H Allergies: No Known Allergies Family Hx: Family History Problem Relation Age of Onset Heart disease Father Heart disease Sister Diabetes type II Sister Social Hx: History Substance Use Topics Smoking status: Never Smoker Smokeless tobacco: Never Used Alcohol Use: Yes Comment: once a weak. 2-3 beers , last drank this am. Review of Symptoms: 14 Points were reviewed and negative except that was mentioned in History of present illnes s. Objective: Vital Signs: BP 191/93 | Pulse 60 | Temp 98.1 F (36.7 C) (Oral) | Resp 18 | SpO2 97% Physical Exam: Constitutional: Oriented to person, place, and time. appears well-developed and well-nouris hed. Obese, HEENT: Head: Normocephalic and atraumatic. Nose: Nose [...] affect. Behavior is normal. Judgment normal. Data: Lab 05/26/13 0940 05/19/132119 WBC 7.9 10.5 HGB 12.5* 12.2* HCT 38.1* 37.5* PLT 241 306 NEUTOPHILPCT 63.4 55.1 MONOPCT 8.9 8.7 Lab 05/26/13 0940 05/19/132119 NA 139 136 K 4.0 4.1 CL 104 103 CO2 30 28 BUN 16 22 CREATININE 1.24 1.45* CALCIUM -- -- PROT 6.9 7.5 BILITOT 0.3 0.3 ALKPHOS -- -- ALT 25 24 AST 27 21 GLUCOSE -- -- Phosphorus: Lab Results Component Value Date PHOS 3.1 04/20/2013 Lab 05/26/13 0940 05/19/132119 APTT 24 -- INR 1.1 1.1 PTT -- -- No results found for this basename: TSH:3,T3FREE:3,FREET4:3 in the last 168 hours Lab 05/26/13 0940 CKTOTAL 117 TROPONINI -- TROPONINT -- CKMBINDEX 3.3 EKG: Sinus bradycardia, rate 51, non specific T wave abnormalities. Chest X-Ray: Xr Chest Pa And Lateral 05/26/2013 NORAH GR 1955 57 years Male XR CHEST 2 VIEW FRONTAL AND LATERAL 2013 10:15 AM INDICATION: Chest pain COMPARISON: 05/19/13 TECHNIQUE: Two view chest, PA an d lateral views FINDINGS: The cardiomediastinal contours are normal. There is no mediastin al widening or shift. No pneumothorax or effusion. The lungs are clear with no focal conso lidation or pulmonary nodules. Mild degenerative disc disease of the thoracic spine is prese nt with osteophyte formation. 05/26/2013 1. No acute cardiopulmonary process. Xr Chest Pa And Lateral 05/20/2013 HISTORY: Chest pain. COMPARISON: 04/18/13. TECHNIQUE: Frontal and lateral films of the chest were obtained. FINDINGS: Heart size is normal. Lungs are clear. Mild-moderate degenerative changes of the spine. 05/20/2013 1. No active intrathoracic disease. Ct Chest Pe Protocol 05/26/2013 NORAH GR [address] CHEST PULMONARY EMBOLISM W CONTRAST 2:24 PM HISTORY: Chest pain with elevation of d-dimer COMPARISON: 04/18/13 TECHNI QUE: 1.5-mm axial images of the chest were acquired in the arterial phase according to a CT angiography protocol. Coronal CT angiographic MIP reconstructions were performed by technical project lead nologist. No 3-D imaging. IV contrast: 60 mL Isovue-370 FINDINGS: The IV bolus is adequate for assessment of pulmonary embolism. There are no filling defects demonstrated throughout t he pulmonary arterial tree to suggest pulmonary embolus. There are no filling defects in the atrium or ventricles. The heart is normal in size. There is no pericardial or pleural fluid . The thoracic aorta is normal in caliber with no aneurysm or dissection. The thyroid is nor mal in appearance. There is no axillary, hilar or mediastinal lymph node enlargement. There is no pneumothorax. The lungs are clear without focal airspace consolidation. There is mode rate degenerative disc disease of the thoracic spine. There are no acute rib fractures. The liver is smooth in contour. There are no hepatic masses. The gallbladder is surgically absen t. The adrenals, spleen and pancreas are normal in appearance. There is no free air noted. 05/26/2013 1. No evidence of pulmonary embolism. 2. Status post cholecystectomy. Electro nically signed by Kishan Ji MD on 05/26/2013 2:36 PM Problem List: Chest pain. Bleeding per rectum. Assessment and Plan: 1. Chest pain. Seems atypical for myocardial ischemia, he has negative stress test last mon, CT chest angio is negative for PE or dissection. Will monitor the patient in telemetry f or now and follow troponin, he has multiple risk factors, will check his Echo. 2. Bleeding per rectum, for past 2 days. Will hold his Plavix for now and monitor H/H, he h ad colonoscopy 4 months ago that showed rectal ulcer, and gastric nodule removed last month in [place], I called Dr. Borja escalation engineer GI publicity consultant, who advised to observe H/H and recurren ce of bleeding, and call him again tomorrow if felt that his bleeding is recurrent, he will need follow up EGD. His chest pain might be related to GERD/ Gastritis, as he just had rocael rodger nodule removed 3 weeks ago, Protonix twice daily was started. Will transfuse as needed . 3. IDDM, continue Lantus and sliding scale. Bleeding per rectum. 4. Hypertension. Continue home medications. Hydralazine p.r.n. ordered for systolic blood p ressures greater than 160. 5. COPD, compensated, continue home bronchodilators. 6. Hyperlipidemia. Continue statin. 7. DVT prophylaxis, SCD. FULL CODE Patient's old records and labs were reviewed in detail and summarized. Code Status: Prior Primary Care Physician: JERRELL GUTIÉRREZ Time spent for admission is 70 minutes. Bruno Pearson MD 05/26/2013 3:32 PM documented in this encounter Consult Notes Gardenia Borja - 05/26/2013 7:10 PM PDT Consults by Gardenia Borja MD at 05/26/131909 Author: Gardenia Borja MD Service: Gastroenterology Author Type: Physician Filed: 05/27/13 1508 Date of Service: 05/26/131909 Status: Signed Conference Specialist: Gardenia Borja MD (Physician) [facility] Service: Gastroenterology Initial Consult Note Date of Admission: 05/26/2013 Reason for Consultation: GI bleeding Requesting Physician: Dr. Pearson History Obtained From: patient HISTORY OF PRESENT ILLNESS The patient is a 57 y.o. male with significant past medical history of diabetes mellitus, h ypertension, hyperlipidemia, obstructive sleep apnea noncompliant with CPAP, paroxysmal atri al fibrillation on Plavix, Developmentally delayed and lives in a retirement; who was admitt ed with chest pain and rectal bleeding. GI was called for evaluation possible active GI blee ding. In February 2013, the patient had a similar GI bleed. He had EGD done on February 2013 t hat showed 1.2 cm nodule in the gastroesophageal junction that was thought to be a source of bleeding. He also had a colonoscopy that showed rectal ulcers. He had this nodule removed i [facility] in [place]. Dr. Gibson from GI used to follow the patient and saw him at h is office 2 weeks back.At the time i saw him in the floor. His chest pain resolved and had n o more rectal bleeding. His H/H is pretty stable. REVIEW OF SYSTEMS ROS obtained from patient. Negative except for pertinent items noted in HPI. Past Medical History Diagnosis Date Diabetes mellitus [...] - CHOLECYSTECTOMY; Surgeon: Jevon Vargas DO; Location: [facility]; Service: General; Laterality: N/A; Abdominal surgery Cholecystectomy Skin cancer excision 10/10/2012 Procedure: EXCISION - SKIN CANCER; Surgeon: Sy Fierro MD; Location: [facility] ; Service: Plastics; Laterality: Left; upper arm and upper back w/frozen section Esophagogastroduodenoscopy 03/03/2013 Procedure: ESOPHAGOGASTRODUODENOSCOPY; Surgeon: Howie Gibson MD; Location: [facility]; S ervice: Gastroenterology; Laterality: N/A; Colonoscopy 03/04/2013 Procedure: COLONOSCOPY; Surgeon: Howie Gibson MD; Location: [facility]; Service: Gastroe nterology; Laterality: N/A; No Known Allergies Prescriptions prior to admission Medication Sig Dispense Refill Albuterol Sulfate (VENTOLIN HFA IN) Inhale 2 puffs into the lungs as needed. ARIPiprazole (ABILIFY) 10 MG tablet Take 15 mg by mouth nightly. cloNIDine (CATAPRES) 0.2 MG tablet Take 1 tablet by mouth 3 (three) times daily. 90 ta blet 0 diltiazem (CARDIZEM CD) 180 MG 24 hr capsule Take 1 capsule by mouth daily. 90 capsule 3 docusate sodium (COLACE) 100 MG capsule Take 100 mg by mouth nightly. fenofibrate (TRIGLIDE) 160 MG tablet Take 160 mg by mouth daily. fluticasone-salmeterol (ADVAIR DISKUS) 250-50 MCG/DOSE AEPB Inhale 1 puff into the lung s every 12 (twelve) hours. 2 each 1 HYDROcodone-acetaminophen (NORCO) 5-325 MG per tablet Take 1 tablet by mouth every 6 (s ix) hours as needed. insulin glargine (LANTUS) 100 UNIT/ML injection Inject into the skin nightly. Per MAR: increase by 1 unit every night by one unit to get 150 fasting blood sugar. 25 units 03/21/13 linagliptin (TRADJENTA) 5 MG tablet Take 5 mg by mouth daily. lisinopril (PRINIVIL,ZESTRIL) 40 MG tablet Take 1 tablet by mouth daily. 30 tablet 0 LORazepam (ATIVAN) 0.5 MG tablet Take 0.5 mg by mouth every 6 (six) hours as needed. In dications: Feeling Anxious Mometasone Furo-Formoterol Fum (DULERA) 100-5 MCG/ACT AERO Inhale 1-2 puffs into the sawyer ngs. nebivolol (BYSTOLIC) 10 MG tablet Take 20 mg by mouth daily. nitroGLYCERIN (NITROSTAT) 0.[address] 0.4 mg under the tongue every 5 (five) minutes as needed. NOVOLOG 100 UNIT/ML injection INJ 3U SUB-Q TID(AC) AND INJECT SUBCUTANEOUSLY PER SLIDIN G SCALE 1-70= 2U, 71-100=3U, 101-120= 4U, 121-150=5U, 151-180=6U, 181-210= 7U, 211- 10 mL 5 paroxetine (PAXIL) 40 MG tablet Take 40 mg by mouth every morning. polyethylene glycol (GLYCOLAX) packet Take 17 g by mouth daily. polyethylene glycol (GLYCOLAX) powder DISSOLVE 17GM IN LIQUID AND DRINK BY MOUTH EVERY DAY 527 g 5 pravastatin (PRAVACHOL) 20 MG tablet Take 20 mg by mouth nightly. tiotropium (SPIRIVA) 18 MCG inhalation capsule Inhale 18 mcg into the lungs daily. calcium carbonate (TUMS) 500 MG chewable tablet Take 500-1,000 mg by mouth daily as nee ded. For GERD loperamide (IMODIUM) 2 MG capsule Take 2 mg by mouth as needed. 4 mg after first loose stool, then 2 mg after each further loose stool Not to exceed 8 mg per day. Scheduled Medications ARIPiprazole 15 mg Oral Nightly cloNIDine 0.2 mg Oral TID diltiazem 240 mg Oral Daily docusate sodium 100 mg Oral Nightly fenofibrate 160 mg Oral Daily fluticasone-salmeterol 1 puff Inhalation Q12H insulin aspart 0-3 Units Subcutaneous Nightly insulin aspart 0-6 Units Subcutaneous TID AC insulin glargine 25 Units Subcutaneous Nightly lisinopril 40 mg Oral Daily nebivolol 20 mg Oral Daily omeprazole 20 mg Oral BID AC PARoxetine 40 mg Oral QAM pravastatin 20 mg Oral Nightly sodium chloride 10 mL Intravenous Q8H tiotropium 18 mcg Inhalation Daily [DISCONTINUED] clopidogrel 75 mg Oral Daily [DISCONTINUED] pantoprazole 40 mg Intravenous Q12H Continuous Infusions dextrose PRN Medications acetaminophen, acetaminophen, calcium carbonate, dextrose, dextrose, dextrose, glucagon, gl ucagon, hydrALAZINE, HYDROcodone-acetaminophen, LORazepam, nitroGLYCERIN, nitroGLYCERIN, nit roGLYCERIN, ondansetron, ondansetron, polyethylene glycol, polyethylene glycol, sodium chlor vidya 0.9 %, albuterol, [DISCONTINUED] hydrALAZINE Family History Problem Relation Age of Onset Heart disease Father Heart disease Sister Diabetes type II Sister History Social History Marital Status: Spouse Name: [...] on file Social History Narrative Lives in retirement, IADL, full code PHYSICAL EXAM Vital Signs: BP 180/79 | Pulse 52 | Temp 97.9 F (36.6 C) (Oral) | Resp 18 | Ht 1.803 m (5' 11") | Wt 107.321 kg (236 lb 9.6 oz) | BMI 33.01 kg/m2 | SpO2 96% Temp: [97.9 F (36.6 C)-98.5 F (36.9 C)] 97.9 F (36.6 C) (05/27 1108) BP: (157-208)/(71-93) 180/79 mmHg (05/27 1439) Heart Rate: [52-68] 52 (05/27 1108) Resp: [12-20] 18 (05/27 1108) SpO2: [93 %-98 %] 96 % (05/27 1108) Height: [180.3 cm (5' 11")] 180.3 cm (5' 11") (05/26 1826) Weight: [107.321 kg (236 lb 9.6 oz)-107.956 kg (238 lb)] 107.321 kg (236 lb 9.6 oz) (05/27 406) BMI (Calculated): [33.3] 33.3 (05/26 1826) Constitutional: Oriented to person, place, and time. appears well-developed and well-nouris hed. Obese, HEENT: Head: Normocephalic and atraumatic. Nose: Nose [...] range of motion.exhibits no tenderness. exhibits no dave ma. Neurological: Alert and oriented to person, place, and time. Displays normal reflexes. No c ranial nerve deficit. Exhibits normal muscle tone. Coordination normal. Skin: Skin is warm and dry. No rash noted. No erythema. No pallor. DATA CBC: Lab Results Component Value Date WBC 8.4 05/27/2013 RBC 4.83 05/27/2013 HGB 13.0* 05/27/2013 HCT 40.3 05/27/2013 MCV 83.4 05/27/2013 MCH 26.9* 05/27/2013 MCHC 32.3 05/27/2013 RDW 43.8 05/27/2013 PLT 223 05/27/2013 MPV 7.6 05/27/2013 DIFFTYPE AUTOMATED 05/27/2013 Hemoglobin/Hematocrit: Lab Results Component Value Date HGB 13.0* 05/27/2013 HCT 40.3 05/27/2013 CMP: Lab Results Component Value Date NA 137 05/27/2013 K 3.9 05/27/2013 CL 104 05/27/2013 CO2 29 05/27/2013 ANIONGAP 8 05/27/2013 GLUF 176* 05/27/2013 BUN 18 05/27/2013 CREATININE 1.24 05/27/2013 BCR 15 05/27/2013 CA 9.0 05/27/2013 PROT 6.9 05/26/2013 ALB 3.2* 05/26/2013 GLOB 3.7 05/26/2013 BILITOT 0.3 05/26/2013 ALP 74 05/26/2013 AST 27 05/26/2013 ALT 25 05/26/2013 EGFR >60 05/27/2013 PT/INR: Lab Results Component Value Date INR 1.1 05/26/2013 PROBLEM LIST Active Problems: Paroxysmal atrial fibrillation GERD without esophagitis ASSESSMENT & PLAN No major active GI bleeding this time and just had EGD/colonoscopy done 2 months back. No n eed to repeat endoscopy since the bleeding stopped. OK to f/u with Dr. Gibson as scheduled as ou t patient. Code Status: Full Code Primary Care Physician: JERRELL GUTIÉRREZ Thank you for allowing me to participate in the care of this patient. I have discussed my recommendations with the attending physician. GARDENIA BORJA MD 05/27/2013 documented in this encount er ED Notes Conversion Transaction, Provider Unknown - 05/26/2013 3:51 PM PDTFormatting of this note m ight be different from the original. ED Notes by Maria Ines Boyce RN at 05/26/13 155 Author: Maria Ines Boyce RN Service: (none) Author Type: Registered Nurse Filed: 05/26/131551 Date of Service: 05/26/131550 Status: Signed Conference Specialist: Maria Ines Boyce RN (Registered Nurse) PT is asking for food Again. Hospitalist agrees he can eat. Maria Ines Boyce RN 05/26/131551 onver ivana Transaction, Provider Unknown - 05/26/2013 3:30 PM PDT ED Notes by Maria Ines Boyce RN at 05/26/13 153 Author: Maria Ines Boyce RN Service: (none) Author Type: Registered Nurse Filed: 05/26/131530 Date of Service: 05/26/131529 Status: Signed Conference Specialist: Maria Ines Boyce RN (Registered Nurse) Jesus Manuel called and the nurse will be faxing the medications (MAR) as it was not brought wit h him on transport. Pts only concern at this time is that he wants to eat "cause Im hungry a nd diabetic..I dont want to go into a coma" Maria Ines Boyce, RN 05/26/13 1531 ONDAHoAshu larsen MD - 05/26/2013 10:29 AM PDTFormatting of this note might be different from th e original. ED Provider Notes by Ashu Bobo MD at 05/26/13 1029 Author: Ashu Bobo MD Service: (none) Author Type: Physician Filed: 05/26/13 1500 Date of Service: 05/26/13 1029 Status: Signed Conference Specialist: Ashu Bobo MD (Physician) Additional Documentation Procedures [facility] Department of Emergency Medicine History of Present Illness Patient Identification Norah Gr is a 57 y.o. male. Patient information was obtained from patient. History/Exam limitations: none. Patient presented to the Emergency Department by: [facility] 1724 Chief Complaint Chief Complaint Patient presents with Chest Pain "sharp" pain all the way through to his back GI Bleeding pt reports "dark and tarry" stools for past several days The patient complains of chest pain. 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 The discomfort is described as "sharp", locate d in the central, substernal area with no reported radiation. The onset of symptoms occure d while the patient was going to jainism. The patient also complains of the following sympto ms: blood streaks noted in stool 2 days ago (does not know color of stool because of colorbl indness). Pt denies: lightheadedness, fever, cough, new leg swelling. Pain level currently: 2/10. At worst: moderate. Care prior to arrival: nothing, with some spontaneous relief. Patient's cardiac risk factors: Age, gender, DM, HTN, high cholesterol Prior stress testing or other cardiac functional testing: Yes, last was last month. PCP: JERRELL GUTIÉRREZ Past Medical History Diagnosis [...] - CHOLECYSTECTOMY; Surgeon: Jevon Vargas DO; Location: [facility]; Service: General; Laterality: N/A; Abdominal surgery Cholecystectomy Skin cancer excision 10/10/2012 Procedure: EXCISION - SKIN CANCER; Surgeon: Sy Fierro MD; Location: [facility] ; Service: Plastics; Laterality: Left; upper arm and upper back w/frozen section Esophagogastroduodenoscopy 03/03/2013 Procedure: ESOPHAGOGASTRODUODENOSCOPY; Surgeon: Howie Gibson MD; Location: [facility]; S ervice: Gastroenterology; Laterality: N/A; Colonoscopy 03/04/2013 Procedure: COLONOSCOPY; Surgeon: Howie Gibsno MD; Location: [facility]; Service: Gastroe nterology; Laterality: N/A; Prior [...] (three) times daily. 03/05/13 Scott Martínez MD clopidogrel (PLAVIX) 75 MG tablet 1 TAB BY MOUTH EVERY DAY 04/23/13 Bang Yhe MD diltiazem (CARDIZEM CD) 180 MG 24 hr capsule Take 1 capsule by mouth daily. 05/19/13 05/19/14 Zach Tena MD diltiazem (CARDIZEM CD) 240 MG 24 hr capsule Take 240 mg by mouth daily. Historical Prov ider docusate sodium (COLACE) 100 MG capsule Take 100 mg by mouth nightly. Historical Provide r famotidine (PEPCID) 20 MG tablet 1 TAB BY MOUTH 2 TIMES DAILY 05/10/13 Bang Yeh MD fenofibrate (TRIGLIDE) 160 MG tablet Take 160 mg by mouth daily. Historical Provider fluticasone-salmeterol (ADVAIR DISKUS) 250-50 MCG/DOSE AEPB Inhale 1 puff into the lungs ev wilbert 12 (twelve) hours. 09/14/12 Augustine Mukherjee MD HYDROcodone-acetaminophen (NORCO) 5-325 MG per tablet [...] 181-210= 7U, 211- 04/23/13 Ramesh Yeh MD pantoprazole (PROTONIX) 40 MG tablet Take 1 [...] on file Social History Narrative Lives in retirement, IADL, full code Family History Problem Relation Age of Onset Heart disease Father Heart disease Sister Diabetes type II Sister Review of Systems Constitutional: Negative for: fever, chills Eyes: Negative for: vision changes Throat: Negative for: mouth sores Cardiovascular/Respiratory: As above, else negative for: cough, positive for "it's hard to catch my breath sometimes." Gastrointestinal: Negative for: abdominal pain, vomiting, diarrhea, black or bloody stools Genitourinary: Negative for: dysuria, hematuria, urinary problems Musculoskeletal: Negative for: extremity swelling Skin: Negative for: rash Neuro and psych: Negative for: fainting Endocrine/Heme/Lymph: Negative for: swollen lymph nodes All other review of systems negative except as mentioned. Physical Exam BP 168/77 | Pulse 56 | Temp 97.6 F (36.4 C) (Oral) | Resp 18 | SpO2 96% Pulse Oximetry interpretation: Normal VS: Borderline bradycardia noted. Afebrile. General: Alert, in no apparent distress. Slow responses but mostly accurate. Eyes: Normal inspection, pupils equal and round, non-icteric ENT: Ears normal Nose normal Neck: Normal inspection Supple No lymphadenopathy No meningismus Cardiovascular: Normal rate, rhythm. No murmur. Respiratory: Normal lung sounds. No rales, rhonchi, or wheezing. Abdomen: Soft, non-tender, non-distended, obese. No guarding or rebound Back: Normal inspection Rectal: Heme positive with good quality-control check. Stool is light brown. Extremities: No edema or tenderness Skin: Color normal Warm and dry No rash Neuro: No motor deficit No sensory deficit Medical Decision Making and Emergency Department Course Well's Criteria Points no: Clinically suspect DVT 3 no: Most likely due to PE 3 no: Heart rate >= 100 1.5 no: Immobilization or surgery in last 4 weeks 1.5 no: Prior DVT or PE 1.5 no: Hemoptysis 1 no: Cancer treatment in the last 6 months 1 Results: Score 0-2, low pre-test probability, may be excluded by a normal d-dimer ED Department Course Benign overall exam with atypical chest pain but multiple risk factors. Pt has care plan a nd COLTON alert and history of noncompliance by documentation. Many recent ED visits. Will s creen. Initial ECG shows some T-wave flattening. 1029 - TnI 0.02 (normal). Other workup negative for acute issues. Waiting for added d-dimer. CXR benign. D-dimer elevated. CT PE ordered. 1446 - CT negative for PE. Will admit for chest pain and lower GI bleed. 1458 - Discussed case with Dr. Pearson (hospitalist), will admit. No additional reques ts. Pt reassessed multiple times during course of ED stay and demonstrated progressive and sust ained improvement. Neither decompensation nor new symptoms observed or reported. BP 189/88 | Pulse 53 | Temp 98.1 F (36.7 C) (Oral) | Resp 18 | SpO2 97% Workup initially negative for or not consistent with acute myocardial infarction, pulmonary embolus, aortic dissection, unstable angina or other emergent causes of chest pain. Records Reviewed Old medical records. Many prior ED visits noted. I have also noted and reviewed the COLTON fax and the associated patient care plan. Laboratory Evaluation [facility] CARD PANEL W/O TRP (ED ONLY) - Abnormal; Notable for the following: HGB 12.5 (*) Testing performed at [facility];[address];[place] [address] HCT 38.1 (*) Testing performed at [facility];[address];[place] [address] GLUCOSE 216 (*) Testing performed at [facility];[address];[place] [address] CALCIUM 8.3 (*) Testing performed at [facility];[address] [place] [address];[place] [address] Albumin 3.2 (*) Testing performed at [facility];[address] [place] [address];[place] [address] A/G 0.9 (*) Testing performed at [facility];[address];[place] [address] MMB 3.9 (*) Testing performed at [facility];[address];[place] [address] All other components within normal limits D-DIMER, QUANTITATIVE - Abnormal; Notable for the following: D DIMER, QUANTITATIVE 1.12 (*) All other components within normal limits TYPE AND SCREEN POC CARDIAC TROPONIN 12-lead ECG: Time of exam 0925. Interpreted independently by me. Rate: 51. Rhythm: sinu s bradycardia. Ectopy: none. Kersey: nml. Intervals: nml. Infarct/Ischemia: global T-wave flattening. Technique: Good. Interpretation: Sinus bradycardia with nonspecific T-wave flattening Prior ECG for comparison: T-wave flattening more prominent since prior ECG dated May 08 014. Radiology and EKG Evaluation Imaging Results CT Chest PE Protocol (Final result) Result time:05/26/13 1436 Final result by Rad Results In Richard (05/26/13 14:36:01) Impression: 1. No evidence of pulmonary embolism. 2. Status post cholecystectomy. Narrative: NORAH GR [address] CHEST PULMONARY EMBOLISM W CONTRAST 05/26/2013 2:24 PM HISTORY: Chest pain with elevation of d-dimer COMPARISON: 04/18/13 TECHNIQUE: 1.5-mm axial images of the chest were acquired in the arterial phase according to a CT nica ography protocol. Coronal CT angiographic MIP reconstructions were performed by [facility]. No 3-D imaging. IV contrast: 60 mL Isovue-370 FINDINGS: The IV bolus is adequate for assessment of pulmonary embolism. There are no filli ng defects demonstrated throughout the pulmonary arterial tree to suggest pulmonary embolus. There are no filling defects in the atrium or ventricles. The heart is normal in size. Ther e is no pericardial or pleural fluid. The thoracic aorta is normal in caliber with no aneury sm or dissection. The thyroid is normal in appearance. There is no axillary, hilar or medias tinal lymph node enlargement. There is no pneumothorax. The lungs are clear without focal airspace consolidation. There i s moderate degenerative disc disease of the thoracic spine. There are no acute rib fractures . The liver is smooth in contour. There are no hepatic masses. The gallbladder is surgically absent. The adrenals, spleen and pancreas are normal in appearance. There is no free air no tasia. XR Chest PA and Lateral (Final result) Result time:05/26/13 1021 Final result by Rad Results In Richard (05/26/13 10:21:43) Impression: 1. No acute cardiopulmonary process. Narrative: NORAH GR 1955 57 years Male XR CHEST 2 VIEW FRONTAL AND LATERAL 05/26/2013 10:15 AM INDICATION: Chest pain COMPARISON: 05/19/13 TECHNIQUE: Two view chest, PA and lateral views FINDINGS: The cardiomediastinal contours are normal. There is no mediastinal widening or s hift. No pneumothorax or effusion. The lungs are clear with no focal consolidation or pulm onary nodules. Mild degenerative disc disease of the thoracic spine is present with osteophy te formation. ED Diagnoses Final diagnoses Chest pain, atypical Lower GI bleed DM type 2 (diabetes mellitus, type 2) Hypertension Hyperglycemia Disposition: ED Disposition Admit/Observation Bed request special needs: None Diagnosis?: atypical chest pain, lower GI bleed Follow-up Information None Discharge Medications: New Prescriptions No new medications Ashu Bobo MD 05/26/13 1500 onversion Transa ction, Provider Unknown - 05/26/2013 9:18 AM PDT ED Notes by Jenniffer Guerra RN at 05/26/13917 Author: Jenniffer Guerra RN Service: (none) Author Type: Registered Nurse Filed: 05/26/13917 Date of Service: 05/26/13917 Status: Signed Conference Specialist: Jenniffer Guerra RN (Registered Nurse) Bed:13
Expected date:
Expected time:
Means of arrival:
Comments:
cp docume nted in this encounter Plan of [...] | | | | | | [place] [id number] | | | | | | [phone] | | | | | | | | +--------+ + + + + documented as of this encounter Procedures + +--------+ + + + | Procedure Name | Priori | Date/Time | Associated Diagnosis | Comments | | | ty | | | | + +--------+ + + + | TROPONIN I | Routin | 05/27/2013 | | Results for this | | | e | 11:46 AM | | procedure are in the | | | | PDT | | results section. | + +--------+ + + + | POC GLUCOSE | Routin | 05/27/2013 | | Results for this | | | e | 11:05 AM | | procedure are in the | | | | PDT | | results section. | + +--------+ + + + | ECHO COMPLETE | Routin | 05/27/2013 | | Results for this | | | e | 8:02 AM | | procedure are in the | | | | PDT | | results section. | + +--------+ + + + | ECG 12 LEAD | Routin | 05/27/2013 | | Results for this | | | e | 5:40 AM | | procedure are in the | | | | PDT | | results section. | + +--------+ + + + | POC GLUCOSE | Routin | 05/27/2013 | | Results for this | | | e | 5:26 AM | | procedure are in the | | | | PDT | | results section. | + +--------+ + + + | EXTERNAL LAB: CBC | Routin | 05/27/2013 | | Results for this | | | e | 5:21 AM | | procedure are in the | | | | PDT | | results section. | + +--------+ + + + | TROPONIN I | Routin | 05/27/2013 | | Results for this | | | e | 5:21 AM | | procedure are in the | | | | PDT | | results section. | + +--------+ + + + | PHOSPHORUS | Routin | 05/27/2013 | | Results for this | | | e | 5:21 AM | | procedure are in the | | | | PDT | | results section. | + +--------+ + + + | MAGNESIUM | Routin | 05/27/2013 | | Results for this | | | e | 5:21 AM | | procedure are in the | | | | PDT | | results section. | + +--------+ + + + | HEMOGLOBIN A1C | Routin | 05/27/2013 | | Results for this | | | e | 5:21 AM | | procedure are in the | | | | PDT | | results section. | + +--------+ + + + | BASIC METABOLIC | Routin | 05/27/2013 | | Results for this | | PANEL | e | 5:21 AM | | procedure are in the | | | | PDT | | results section. | + +--------+ + + + | TROPONIN I | Routin | 05/27/2013 | | Results for this | | | e | 12:10 AM | | procedure are in the | | | | PDT | | results section. | + +--------+ + + + | POC GLUCOSE | Routin | 05/26/2013 | | Results for this | | | e | 10:57 PM | | procedure are in the | | | | PDT | | results section. | + +--------+ + + + | CT ANGIOGRAM | Routin | 05/26/2013 | | Results for this | | PULMONARY | e | 2:24 PM | | procedure are in the | | | | PDT | | results section. | + +--------+ + + + | XR CHEST 2 VIEWS | Routin | 05/26/2013 | | Results for this | | | e | 10:15 AM | | procedure are in the | | | | PDT | | results section. | + +--------+ + + + | HISTORICAL LAB PANEL | Routin | 05/26/2013 | | Results for this | | RESULT | e | 9:40 AM | | procedure are in the | | | | PDT | | results section. | + +--------+ + + + | D-DIMER | Routin | 05/26/2013 | | Results for this | | | e | 9:40 AM | | procedure are in the | | | | PDT | | results section. | + +--------+ + + + | TYPE AND SCREEN | Routin | 05/26/2013 | | Results for this | | | e | 9:40 AM | | procedure are in the | | | | PDT | | results section. | + +--------+ + + + | ECG 12 LEAD | Routin | 05/26/2013 | | Results for this | | | e | 9:25 AM | | procedure are in the | | | | PDT | | results section. | + +--------+ + + + documented in this encounter Results Troponin I (05/27/2013 11:46 AM PDT) + + + + + [...] | | | | | | ACUTE [place] Testing | | | | | | performed at [facility];[address] | | | | | | [address];[place], [place] | | | | | | [address] | | | | + + + + + + + + | Specimen | + + | Blood specimen | | (specimen) | + + + +---------+ + + | Performing | Address | City/State/Zipcode | Phone Number | | Organization | | | | + +---------+ + + | EXTERNAL LAB | | | | + +---------+ + + POC Glucose (05/27/2013 11:05 AM PDT) + + + + + + | Component | Value | Ref Range | Performed | Pathologist | | | | | At | Signature | + + + + + + | Glucose, | 166 (H)Comment: Testing | 65 - 99 mg/dL | EXTERNAL | | | Fingerstick | performed at [facility];[address] | | LAB | | | | [address];[place], [place] | | | | | | [address] | | | | + + + + + + + + | Specimen | + + | | + + + +---------+ + + | Performing | Address | City/State/Zipcode | Phone Number | | Organization | | | | + +---------+ + + | EXTERNAL LAB | | | | + +---------+ + + ECHO Complete (05/27/2013 8:02 AM PDT) + + | Specimen | + + | | + + + + + | Impressions | Performed At | + + + | 1. Left ventricular systolic function is hyperdynamic with an | | | estimated EF of >70%. 2. There is mild concentric left ventricular | | | hypertrophy. 3. The left atrium is moderately dilated. 4. The right | | | atrium is mildly enlarged. 5. There is no evidence of aortic | | | stenosis. 6. There is no evidence of pulmonary hypertension. | | + + + + + + | Narrative | Performed At | + + + | Patient Name: NORAH GR Date of : 1955 | | | Performing Physician: Memo Dahl MD | | | | | | INDICATIONS abnormal ekg CONCLUSIONS | | | 1. Left ventricular systolic function is hyperdynamic with an | | | estimated EF of >70%. 2. There is mild concentric left ventricular | | | hypertrophy. 3. The left atrium is moderately dilated. 4. The right | | | atrium is mildly enlarged. 5. There is no evidence of aortic | | | stenosis. 6. There is no evidence of pulmonary hypertension. | | | FINDINGS -------- ECG rhythm: Resting bradycardia (HR<60bpm). | | | Study: A 2-dimensional transthoracic echocardiogram with m-mode, | | | spectral and color flow Doppler was perfomed. Study: This was a | | | technically adequate study. Left Ventricle: Left ventricular systolic | | | function is hyperdynamic with an estimated EF of >70%. Left | | | Ventricle: The left ventricle cavity size is normal. Left Ventricle: | | | There is mild concentric left ventricular hypertrophy. Left | | | Ventricle: The diastolic filling pattern is normal for the age of the | | | patient. Right Ventricle: The right ventricle is normal in size. | | | Left Atrium: The left atrium is moderately dilated. Right Atrium: The | | | right atrium is mildly enlarged. Aortic Valve: The aortic valve is | | | trileaflet and appears structurally normal. Aortic Valve: There is no | | | evidence of aortic regurgitation. Aortic Valve: There is no evidence | | | of aortic stenosis. Mitral Valve: The mitral valve is normal. | | | Trace mitral regurgitation. Mitral Valve: There is trace mitral | | | regurgitation. Tricuspid Valve: The tricuspid valve appears | | | structurally normal. Tricuspid Valve: Trace tricuspid regurgitation | | | present. Tricuspid Valve: There is no evidence of pulmonary | | | hypertension. Pulmonic Valve: The pulmonic valve is normal. Pulmonic | | | Valve: Trace pulmonic regurgitation. Pulmonic Valve: A wave | | | normal. Pericardium: Anterior echo free space present. Pericardium: | | | Possible pleural effusion see but only in subcostal views. | | | IVC/Hepatic Veins: The IVC is normal size (1.5-2.5cm) and collapses | | | >50% with sniff, consistent with central venous pressures of 5-10mmHg. | | | MEASUREMENTS Ao asc: 3.81 cm Ao Diam: 3.62 | | | cm IVC: 2.24 cm LA Diam: 4.75 cm LA Major: 5.88 cm | | | EDV(Teich): 130.94 ml IVSd: 1.44 cm LVIDd: 5.22 cm LVPWd: | | | 1.34 cm LVOT Diam: 1.99 cm %FS: 35.88 % EF(Teich): | | | 65.04 % ESV(Teich): 45.77 ml IVSs: 1.55 cm LVIDs: 3.35 cm | | | LVPWs: 1.36 cm SV(Teich): 85.17 ml RA Major: 5.17 cm | | | RVIDd: 3.28 cm LVEF MOD A2C: 74.37 % SV MOD A2C: 83.14 ml | | | LVEF MOD A4C: 73.99 % SV MOD A4C: 105.80 ml EF Biplane: | | | 74.40 % LVEDV MOD BP: 128.04 ml LVESV MOD BP: 32.77 ml LVEDV | | | MOD A2C: 111.78 ml LVLd A2C: 9.23 cm LVEDV MOD A4C: 142.98 | | | ml LVLd A4C: 8.97 cm LVESV MOD A2C: 28.64 ml LVLs A2C: | | | 5.98 cm LVESV MOD A4C: 37.17 ml LVLs A4C: 6.29 cm CO Biplane: | | | 4.15 l/min HR: 43.64 BPM R-R: 1374.85 ms LAEDV(A-L): | | | 89.31 ml LAEDV Index (A-L): 39.51 ml/m2 LAAd A2C: 22.64 cm2 | | | LAEDV A-L A2C: 77.61 ml LAEDV MOD A2C: 72.93 ml LALd A2C: | | | 5.60 cm LAAd A4C: 26.05 cm2 LAEDV A-L A4C: 92.77 ml LAEDV MOD | | | A4C: 82.64 ml LALd A4C: 6.21 cm Ao Diam: 3.82 cm AV Cusp: | | | 2.26 cm LA Diam: 4.72 cm LA/Ao: 1.23 D-E Excursion: | | | 1.67 cm E-F [place]attn[place]: 0.03 m/s EPSS: 0.15 cm HR: 43.78 BPM | | | AV maxP.36 mmHg AV meanP.78 mmHg AV Vmax: 1.53 m/s | | | AV Vmean: 0.90 m/s AV VTI: 32.73 cm VANE Vmax: 2.61 cm2 | | | VANE (VTI): 3.03 cm2 LVCI Dopp: 1.98 l/minm2 LVCO Dopp: 4.49 | | | l/min HR: 45.27 BPM LVOT maxP.55 mmHg LVOT meanPG: | | | 3.11 mmHg LVSI Dopp: 43.89 ml/m2 LVSV Dopp: 99.19 ml LVOT | | | Vmax: 1.27 m/s LVOT Vmean: 0.81 m/s LVOT VTI: 31.68 cm | | | MCO: 487.88 ms MR maxP.99 mmHg MR Vmax: 3.49 m/s MV A | | | Mick: 0.61 m/s MV DecT: 231.15 ms MV E Mick: 0.81 m/s MV | | | E/A Ratio: 1.33 MV PHT: 72.43 ms MVA By PHT: 3.03 cm2 MV A | | | Dur: 152.24 ms IVRT: 134.94 ms Septal e': 0.09 m/s Septal | | | E/e': 8.80 Lateral e': 0.08 m/s Lateral E/e': 9.61 P Vein | | | A: 0.25 m/s P Vein A Dur: 138.40 ms P Vein D: 0.63 m/s P | | | Vein S/D Ratio: 1.16 P Vein S: 0.73 m/s PAEDP: 11.06 mmHg | | | PRend P.06 mmHg PRend Vmax: 0.51 m/s HR: 52.43 BPM PV | | | maxP.54 mmHg PV meanP.73 mmHg PV Vmax: 1.27 m/s PV | | | Vmean: 0.74 m/s PV VTI: 30.92 cm RAP: 10 mmHg RVSP: | | | 18.85 mmHg TR maxP.85 mmHg TR Vmax: 1.48 m/s TV A Mick: | | | 0.22 m/s TV Dec Tattnall: 2.25 m/s2 TV Dec Time: 269.79 ms TV E | | | Mick: 0.60 m/s TV E/A Ratio: 2.70 Nut Chopper: ANA | | | Authenticated by: Memo Dahl MD Report Date/Time: 05-27-2013 | | | 17:05:49 | | + + + + + | Procedure Note | + + | Joaquin Ramos Conversion - 09/21/2018 3:31 PM PDT Patient Name: Sim GR of | | : 1955 Performing Physician: Memo Dahl | | MD INDICATIONS a | | bnormal ekg CONCLUSIONS 1. Left ventricular systolic function is hyperdynamic | | with an estimated EF of >70%.2. There is mild concentric left ventricular hypertrophy.3. | | The left atrium is moderately dilated.4. The right atrium is mildly enlarged.5. There | | is no evidence of aortic stenosis.6. There is no evidence of pulmonary hypertension. | | FINDINGS--------ECG rhythm: Resting bradycardia (HR<60bpm).Study: A 2-dimensional | | transthoracic echocardiogram with m-mode, spectral and color flow Doppler was | | perfomed.Study: This was a technically adequate study.Left Ventricle: Left ventricular | | systolic function is hyperdynamic with an estimated EF of >70%.Left Ventricle: The left | | ventricle cavity size is normal.Left Ventricle: There is mild concentric left | | ventricular hypertrophy.Left Ventricle: The diastolic filling pattern is normal for the | | age of the patient.Right Ventricle: The right ventricle is normal in size.Left Atrium: | | The left atrium is moderately dilated.Right Atrium: The right atrium is mildly | | enlarged.Aortic Valve: The aortic valve is trileaflet and appears structurally | | normal.Aortic Valve: There is no evidence of aortic regurgitation.Aortic Valve: There is | | no evidence of aortic stenosis.Mitral Valve: The mitral valve is normal. Trace mitral | | regurgitation.Mitral Valve: There is trace mitral regurgitation.Tricuspid Valve: The | | tricuspid valve appears structurally normal.Tricuspid Valve: Trace tricuspid | | regurgitation present.Tricuspid Valve: There is no evidence of pulmonary | | hypertension.Pulmonic Valve: The pulmonic valve is normal.Pulmonic Valve: Trace | | pulmonic regurgitation.Pulmonic Valve: A wave normal.Pericardium: Anterior echo free | | space present.Pericardium: Possible pleural effusion see but only in subcostal | | views.IVC/Hepatic Veins: The IVC is normal size (1.5-2.5cm) and collapses >50% with | | sniff, consistent with central venous pressures of 5-10mmHg. MEASUREMENTS Ao | | asc: 3.81 cmAo Diam: 3.62 cmIVC: 2.24 cmLA Diam: 4.75 cmLA Major: 5.88 | | cmEDV(Teich): 130.94 mlIVSd: 1.44 cmLVIDd: 5.22 cmLVPWd: 1.34 cmLVOT Diam: | | 1.99 cm%FS: 35.88 %EF(Teich): 65.04 %ESV(Teich): 45.77 mlIVSs: 1.55 cmLVIDs: | | 3.35 cmLVPWs: 1.36 cmSV(Teich): 85.17 mlRA Major: 5.17 cmRVIDd: 3.28 cmLVEF MOD | | A2C: 74.37 %SV MOD A2C: 83.14 mlLVEF MOD A4C: 73.99 %SV MOD A4C: 105.80 mlEF | | Biplane: 74.40 %LVEDV MOD BP: 128.04 mlLVESV MOD BP: 32.77 mlLVEDV MOD A2C: | | 111.78 mlLVLd A2C: 9.23 cmLVEDV MOD A4C: 142.98 mlLVLd A4C: 8.97 cmLVESV MOD A2C: | | 28.64 mlLVLs A2C: 5.98 cmLVESV MOD A4C: 37.17 mlLVLs A4C: 6.29 cmCO Biplane: | | 4.15 l/minHR: 43.64 BPMR-R: 1374.85 msLAEDV(A-L): 89.31 mlLAEDV Index (A-L): | | 39.51 ml/m2LAAd A2C: 22.64 [id number] A-L A2C: 77.61 mlLAEDV MOD A2C: 72.93 mlLALd | | A2C: 5.60 cmLAAd A4C: 26.05 [id number] A-L A4C: 92.77 mlLAEDV MOD A4C: 82.64 | | mlLALd A4C: 6.21 cmAo Diam: 3.82 cmAV Cusp: 2.26 cmLA Diam: 4.72 cmLA/Ao: | | 1.23D-E Excursion: 1.67 cmE-F Tattnall: 0.03 m/sEPSS: 0.15 cmHR: 43.78 BPMAV maxPG: | | 9.36 mmHgAV meanP.78 mmHgAV Vmax: 1.53 m/Jason Vmean: 0.90 m/Jason VTI: 32.73 | | cmAVA Vmax: 2.61 cm2AVA (VTI): 3.03 [id number] Dopp: 1.98 l/orlc3NOEI Dopp: 4.49 | | l/minHR: 45.27 BPMLVOT maxP.55 mmHgLVOT meanP.11 mmHgLVSI Dopp: 43.89 | | ml/m2LVSV Dopp: 99.19 mlLVOT Vmax: 1.27 m/sLVOT Vmean: 0.81 m/sLVOT VTI: 31.68 | | cmMCO: 487.88 msMR maxP.99 mmHgMR Vmax: 3.49 m/sMV A Mick: 0.61 m/sMV DecT: | | 231.15 msMV E Mick: 0.81 m/sMV E/A Ratio: 1.33MV PHT: 72.43 msMVA By PHT: 3.03 | | cm2MV A Dur: 152.24 msIVRT: 134.94 msSeptal e': 0.09 m/sSeptal E/e': 8.80Lateral | | e': 0.08 m/sLateral E/e': 9.61P Vein A: 0.25 m/sP Vein A Dur: 138.40 msP Vein | | D: 0.63 m/sP Vein S/D Ratio: 1.16P Vein S: 0.73 m/sPAEDP: 11.06 mmHgPRend PG: | | 1.06 mmHgPRend Vmax: 0.51 m/sHR: 52.43 BPMPV maxP.54 mmHgPV meanP.73 | | mmHgPV Vmax: 1.27 m/sPV Vmean: 0.74 m/sPV VTI: 30.92 cmRAP: 10 mmHgRVSP: 18.85 | | mmHgTR maxP.85 mmHgTR Vmax: 1.48 m/sTV A Mick: 0.22 m/sTV Dec Tattnall: 2.25 | | m/s2TV Dec Time: 269.79 msTV E Mick: 0.60 m/sTV E/A Ratio: 2.70 Nut Chopper: | | GDAuthenticated by: Memo Dahl MDReport Date/Time: 05-27-2013 17:05:49 IMPRESSION: 1. | | Left ventricular systolic function is hyperdynamic with an estimated EF of >70%.2. There | | is mild concentric left ventricular hypertrophy.3. The left atrium is moderately | | dilated.4. The right atrium is mildly enlarged.5. There is no evidence of aortic | | stenosis.6. There is no evidence of pulmonary hypertension. | |LVIDd: 5.22 cm | |LVPWd: 1.34 cm | |LVOT Diam: 1.99 cm | |%FS: 35.88 % | |EF(Teich): 65.04 % | |ESV(Teich): 45.77 ml | |IVSs: 1.55 cm | |LVIDs: 3.35 cm | |LVPWs: 1.36 cm | |SV(Teich): 85.17 ml | |RA Major: 5.17 cm | |RVIDd: 3.28 cm | |LVEF MOD A2C: 74.37 % | |SV MOD A2C: 83.14 ml | |LVEF MOD A4C: 73.99 % | |SV MOD A4C: 105.80 ml | |EF Biplane: 74.40 % | |LVEDV MOD BP: 128.04 ml | |LVESV MOD BP: 32.77 ml | |LVEDV MOD A2C: 111.78 ml | |LVLd A2C: 9.23 cm | |LVEDV MOD A4C: 142.98 ml | |LVLd A4C: 8.97 cm | |LVESV MOD A2C: 28.64 ml | |LVLs A2C: 5.98 cm | |LVESV MOD A4C: 37.17 ml | |LVLs A4C: 6.29 cm | |CO Biplane: 4.15 l/min | |HR: 43.64 BPM | |R-R: 1374.85 ms | |LAEDV(A-L): 89.31 ml | |LAEDV Index (A-L): 39.51 ml/m2 | |LAAd A2C: 22.64 cm2 | |LAEDV A-L A2C: 77.61 ml | |LAEDV MOD A2C: 72.93 ml | |LALd A2C: 5.60 cm | |LAAd A4C: 26.05 cm2 | |LAEDV A-L A4C: 92.77 ml | |LAEDV MOD A4C: 82.64 ml | |LALd A4C: 6.21 cm | |Ao Diam: 3.82 cm | |AV Cusp: 2.26 cm | |LA Diam: 4.72 cm | |LA/Ao: 1.23 | |D-E Excursion: 1.67 cm | |E-F [place]att[place]: 0.03 m/s | |EPSS: 0.15 cm | |HR: 43.78 BPM | |AV maxP.36 mmHg | |AV meanP.78 mmHg | |AV Vmax: 1.53 m/s | |AV Vmean: 0.90 m/s | |AV VTI: 32.73 cm | |VANE Vmax: 2.61 cm2 | |VANE (VTI): 3.03 cm2 | |LVCI Dopp: 1.98 l/minm2 | |LVCO Dopp: 4.49 l/min | |HR: 45.27 BPM | |LVOT maxP.55 mmHg | |LVOT meanP.11 mmHg | |LVSI Dopp: 43.89 ml/m2 | |LVSV Dopp: 99.19 ml | |LVOT Vmax: 1.27 m/s | |LVOT Vmean: 0.81 m/s | |LVOT VTI: 31.68 cm | |MCO: 487.88 ms | |MR maxP.99 mmHg | |MR Vmax: 3.49 m/s | |MV A Mick: 0.61 m/s | |MV DecT: 231.15 ms | |MV E Mick: 0.81 m/s | |MV E/A Ratio: 1.33 | |MV PHT: 72.43 ms | |MVA By PHT: 3.03 cm2 | |MV A Dur: 152.24 ms | |IVRT: 134.94 ms | |Septal e': 0.09 m/s | |Septal E/e': 8.80 | |Lateral e': 0.08 m/s | |Lateral E/e': 9.61 | |P Vein A: 0.25 m/s | |P Vein A Dur: 138.40 ms | |P Vein D: 0.63 m/s | |P Vein S/D Ratio: 1.16 | |P Vein S: 0.73 m/s | |PAEDP: 11.06 mmHg | |PRend P.06 mmHg | |PRend Vmax: 0.51 m/s | |HR: 52.43 BPM | |PV maxP.54 mmHg | |PV meanP.73 mmHg | |PV Vmax: 1.27 m/s | |PV Vmean: 0.74 m/s | |PV VTI: 30.92 cm | |RAP: 10 mmHg | |RVSP: 18.85 mmHg | |TR maxP.85 mmHg | |TR Vmax: 1.48 m/s | |TV A Mick: 0.22 m/s | |TV Dec Tattnall: 2.25 m/s2 | |TV Dec Time: 269.79 ms | |TV E Mick: 0.60 m/s | |TV E/A Ratio: 2.70 | | | |Nut Chopper: GD | |Authenticated by: Memo Dahl MD | |Report Date/Time: 05-27-2013 17:05:49 | | | |IMPRESSION: | |1. Left ventricular systolic function is hyperdynamic with an estimated EF of >70%. | |2. There is mild concentric left ventricular hypertrophy. | |3. The left atrium is moderately dilated. | |4. The right atrium is mildly enlarged. | |5. There is no evidence of aortic stenosis. | |6. There is no evidence of pulmonary hypertension. | + + ECG 12 lead (05/27/2013 5:40 AM PDT) + + + + + + | Component | Value | Ref Range | Performed | Pathologist | | | | | At | Signature | + + + + + + | DIAGNOSIS: | Baseline ArtifactSinus | | EXTERNAL | | | | bradycardiaNonspecific | | LAB | | | | ST and/or T wave | | | | | | abnormalitiesBorderline | | | | | | ECGOtherwise normal | | | | | | ECGWhen compared with | | | | | | ECG of 26-MAY-2013 | | | | | | 09:25,Nonspecific ST | | | | | | and/or T wave | | | | | | abnormalities less or no | | | | | | longer evident since | | | | | | previous ECG Anterior | | | | | | leadsConfirmed by | | | | | | MEMO DAHL ([id number]) on | | | | | | 05/27/2013 7:57:48 AM | | | | + + + + + + + + | Specimen | + + | | + + + + + | Narrative | Performed At | + + + | Historically converted procedure from [facility] environment | EXTERNAL LAB | + + + + +---------+ + + | Performing | Address | City/State/Zipcode | Phone Number | | Organization | | | | + +---------+ + + | EXTERNAL LAB | | | | + +---------+ + + POC Glucose (05/27/2013 5:26 AM PDT) + + + + + + | Component | Value | Ref Range | Performed | Pathologist | | | | | At | Signature | + + + + + + | Glucose, | 178 (H)Comment: Testing | 65 - 99 mg/dL | EXTERNAL | | | Fingerstick | performed at [facility];[address] | | LAB | | | | [address];[place] | | | | | | [address] | | | | + + + + + + + + | Specimen | + + | | + + + +---------+ + + | Performing | Address | City/State/Zipcode | Phone Number | | Organization | | | | + +---------+ + + | EXTERNAL LAB | | | | + +---------+ + + Troponin I (05/27/2013 5:21 AM PDT) + + + + [...] | | | | | | ACUTE [place] Testing | | | | | | performed at [facility];[address] | | | | | | [address];[place], [place] | | | | | | [address] | | | | + + + [...] + +---------+ + + External Lab: CBC (05/27/2013 5:21 AM PDT) + + + + + + | Component | Value | Ref Range | Performed | Pathologist | | | | | At | Signature | + + + + + + | WBC | 8.4Comment: Testing | 3.8 - 11.0 K/uL | EXTERNAL | | | | performed at [facility], [address] | | LAB | | | | [address], | | | | | | [place] [address] | | | | + + + + + + | Non- | 4.83Comment: Testing | 4.20 - 5.70 | EXTERNAL | | | Red Blood | performed at [facility], [address] | M/uL | LAB | | | Cells | [address], | | | | | Counted | [place] [address] | | | | + + + + + + | Hemoglobin | 13.0 (L)Comment: Testing | 13.2 - 17.0 | EXTERNAL | | | | performed at [facility], [address] | g/dL | LAB | | | | [address], | | | | | | [place] [address] | | | | + + + + + + | Hematocrit, | 40.3Comment: Testing | 39.0 - 50.0 % | EXTERNAL | | | POC | performed at [facility], [address] | | LAB | | | | [address], | | | | | | [place] [address] | | | | + + + + + + | MCV | 83.4Comment: Testing | 80.0 - 100.0 fl | EXTERNAL | | | | performed at [facility], [address] | | LAB | | | [address], | | | | | | [place] [address] | | | | + + + + + + | MCH | 26.9 (L)Comment: Testing | 27.0 - 34.0 pg | EXTERNAL | | | | performed at [facility], [address] | | LAB | | | | [address], | | | | | | [place] [address] | | | | + + + + + + | MCHC | 32.3Comment: Testing | 32.0 - 35.5 | EXTERNAL | | | | performed at [facility], [address] | g/dL | LAB | | | | [address], | | | | | | [place] [address] | | | | + + + + + + | RDW-CV | 43.8Comment: Testing | 37 - 53 fl | EXTERNAL | | | | performed at [facility], [address] | | LAB | | | | [address], | | | | | | [place] [address] | | | | + + + + + + | Platelet | 223Comment: Testing | 150 - 400 K/uL | EXTERNAL | | | Count | performed at [facility], [address] | | LAB | | | Plasma | [address], | | | | | | [place] [address] | | | | + + + + + + | MPV | 7.6Comment: Testing | fl | EXTERNAL | | | | performed at [facility], [address] | | LAB | | | | [address], | | | | | | [place] [address] | | | | + + + + + + | Differentia | AUTOMATEDComment: | | EXTERNAL | | | l Type | Testing performed at | | LAB | | | | [facility], [address] | | | | | | [place] | | | | | | [address] | | | | + + + + + + | % Segmented | 53.9Comment: Testing | % | EXTERNAL | | | | performed at [facility], [address] | | LAB | | | Neutrophils | [address], | | | | | | [place] [address] | | | | + + + + + + | % | 30.9Comment: Testing | % | EXTERNAL | | | Lymphocytes | performed at [facility], [address] | | LAB | | | | [address], | | | | | | [place] [address] | | | | + + + + + + | % Monocytes | 10.3Comment: Testing | % | EXTERNAL | | | | performed at [facility], [address] | | LAB | | | | [address], | | | | | | [place] [address] | | | | + + + + + + | % | 4.3Comment: Testing | % | EXTERNAL | | | Eosinophils | performed at [facility], [address] | | LAB | | | | [address], | | | | | | [place] [address] | | | | + + + + + + | % Basophils | 0.6Comment: Testing | % | EXTERNAL | | | | performed at [facility], [address] | | LAB | | | | [place], | | | | | | [place] [address] | | | | + + + + + + | Absolute | 4.5Comment: Testing | 1.9 - 7.4 K/uL | EXTERNAL | | | Segmented | performed at [facility], [address] | | LAB | | | Neutrophils | [address], | | | | | | [place] [address] | | | | + + + + + + | Absolute | 2.6Comment: Testing | 1.0 - 3.9 K/uL | EXTERNAL | | | Lymphocytes | performed at [facility], [address] | | LAB | | | | [address], | | | | | | [place] [address] | | | | + + + + + + | Absolute | 0.9 (H)Comment: Testing | 0 - 0.8 K/uL | EXTERNAL | | | Monocytes | performed at [facility], [address] | | LAB | | | | [address], | | | | | | [place] [address] | | | | + + + + + + | Absolute | 0.4Comment: Testing | 0 - 0.5 K/uL | EXTERNAL | | | Eosinophils | performed at [facility], [address] | | LAB | | | | [address], | | | | | | [place] [address] | | | | + + + + + + | Absolute | 0.0Comment: Testing | 0 - 0.1 K/uL | EXTERNAL | | | Basophils | performed at [facility], [address] | | LAB | | | | [address], | | | | | | [place] [address] | | | | + + + + + + | RBC | Comment: 1+ | | EXTERNAL | | | Morphology | HypochromiaTesting | | LAB | | | | performed at [facility], [address] | | | | | | [address], | | | | | | [place] [address] | | | | + + + + + + + + | Specimen | + + | | + + + +---------+ + + | Performing | Address | City/State/Zipcode | Phone Number | | Organization | | | | + +---------+ + + | EXTERNAL LAB | | | | + +---------+ + + Phosphorus (05/27/2013 5:21 AM PDT) + + + + + + | Component | Value | Ref Range | Performed | Pathologist | | | | | At | Signature | + + + + + + | PHOSPHORUS | 3.2Comment: Testing | 2.3 - 4.8 mg/dL | EXTERNAL | | | | performed at [facility], [address] | | LAB | | | | [address], | | | | | | [place] [address] | | | | + + + + + + + + | Specimen | + + | | + + + +---------+ + + | Performing | Address | City/State/Zipcode | Phone Number | | Organization | | | | + +---------+ + + | EXTERNAL LAB | | | | + +---------+ + + Magnesium (05/27/2013 5:21 AM PDT) + + + + + + | Component | Value | Ref Range | Performed | Pathologist | | | | | At | Signature | + + + + + + | Magnesium | 1.9Comment: Testing | 1.7 - 2.4 mg/dL | EXTERNAL | | | | performed at [facility], [address] | | LAB | | | | [facility], | | | | | | [place] [address] | | | | + + + + + + + + | Specimen | + + | | + + + +---------+ + + | Performing | Address | City/State/Zipcode | Phone Number | | Organization | | | | + +---------+ + + | EXTERNAL LAB | | | | + +---------+ + + Hemoglobin A1C (05/27/2013 5:21 AM PDT) + + + + + + | Component | Value | Ref Range | Performed | Pathologist | | | | | At | Signature | + + + + + + | Hemoglobin | 7.3 (H)Comment: The | 4.0 - 6.0 % | EXTERNAL | | | A1c | [facility] | | LAB | | | [...] | | | | | performed at [facility], [address] | | | | | [address] [facility], | | | | | | [place] [address] | | | | + + + + + + | Glycohemogl | 163Comment: The ADA | mg/dL | EXTERNAL | [...] | | | | | performed at [facility], [address] | | | | | | [facility], | | | | | | [place] [address] | | | | + + + + + + + + | Specimen | + + | | + + + +---------+ + + | Performing | Address | City/State/Zipcode | Phone Number | | Organization | | | | + +---------+ + + | EXTERNAL LAB | | | | + +---------+ + + Basic Metabolic Panel (05/27/2013 5:21 AM PDT) + + + + + + | Component | Value | Ref Range | Performed | Pathologist | | | | | At | Signature | + + + + + + | Na | 137Comment: Testing | 135 - 143 | EXTERNAL | | | | performed at [facility], [address] | mmol/L | LAB | | | | [address], | | | | | | [place] [address] | | | | + + + + + + | K | 3.9Comment: Testing | 3.5 - 4.9 | EXTERNAL | | | | performed at [facility], [address] | mmol/L | LAB | | | | [address], | | | | | | [place] [address] | | | | + + + + + + | Cl | 104Comment: Testing | 99 - 109 mmol/L | EXTERNAL | | | | performed at [facility], [address] | | LAB | | | | [address], | | | | | | [place] [address] | | | | + + + + + + | CO2 | 29Comment: Testing | 23 - 32 mmol/L | EXTERNAL | | | | performed at [facility], [address] | | LAB | | | | [address], | | | | | | [place] [address] | | | | + + + + + + | Anion Gap | 8Comment: Testing | 5 - 20 mmol/L | EXTERNAL | | | | performed at [facility], [address] | | LAB | | | | [address], | | | | | | [place] [address] | | | | + + + + + + | Glucose, | 176 (H)Comment: Testing | 65 - 99 mg/dL | EXTERNAL | | | Fasting | performed at [facility], [address] | | LAB | | | | [address], | | | | | | [place] [address] | | | | + + + + + + | BUN | 18Comment: Testing | 8 - 25 mg/dL | EXTERNAL | | | | performed at [facility], [address] | | LAB | | | | [address], | | | | | | [place] [address] | | | | + + + + + + | Creatinine | 1.24Comment: Testing | 0.70 - 1.30 | EXTERNAL | | | | performed at [facility], [address] | mg/dL | LAB | | | | [address], | | | | | | [place] [address] | | | | + + + + + + | BUN/Creatin | 15Comment: Testing | | EXTERNAL | | | ine Ratio | performed at [facility], [address] | | LAB | | | | [address], | | | | | | [place] [address] | | | | + + + + + + | Calcium | 9.0Comment: Testing | 8.5 - 10.2 | EXTERNAL | | | | performed at [facility], [address] | mg/dL | LAB | | | | [address], | | | | | | [place] [address] | | | | + + + [...] [address] | | | | | | [employer], | | | | | | [place] [address] | | | | + + + + + + + + | Specimen | + + | | + + + +---------+ + + | Performing | Address | City/State/Zipcode | Phone Number | | Organization | | | | + +---------+ + + | EXTERNAL LAB | | | | + +---------+ + + Troponin I (05/27/2013 12:10 AM PDT) + + + + + [...] | | | | | | ACUTE [place] Testing | | | | | | performed at [facility];[address] | | | | | | [facility];[place], [place] | | | | | | [address] | | | | + + + + + + + + | Specimen | + + | Blood specimen | | (specimen) | + + + +---------+ + + | Performing | Address | City/State/Zipcode | Phone Number | | Organization | | | | + +---------+ + + | EXTERNAL LAB | | | | + +---------+ + + POC Glucose (05/26/2013 10:57 PM PDT) + + + + + + | Component | Value | Ref Range | Performed | Pathologist | | | | | At | Signature | + + + + + + | Glucose, | 219 (H)Comment: Testing | 65 - 99 mg/dL | EXTERNAL | | | Fingerstick | performed at [facility];[address] | | LAB | | | | [address];[place], [place] | | | | | | [address] | | | | + + + + + + + + | Specimen | + + | | + + + +---------+ + + | Performing | Address | City/State/Zipcode | Phone Number | | Organization | | | | + +---------+ + + | EXTERNAL LAB | | | | + +---------+ + + CT Angiogram Pulmonary w Contrast (05/26/2013 2:24 PM PDT) + + | Specimen | + + | | + + + + + | Impressions | Performed At | + + + | 1. No evidence of pulmonary embolism. 2. Status post | | | cholecystectomy. Electronically signed by Kishan Ji MD on | | | 05/26/2013 2:36 PM | | + + + + + + | Narrative | Performed At | + + + | [facility] [address] CHEST PULMONARY | | | EMBOLISM W CONTRAST 05/26/2013 2:24 PM HISTORY: Chest pain with | | | elevation of d-dimer COMPARISON: 04/18/13 TECHNIQUE: 1.5-mm | | | axial images of the chest were acquired in the arterial phase | | | according to a CT angiography protocol. Coronal CT angiographic MIP | | | reconstructions were performed by supervisor microbiology technologists. No 3-D imaging. IV | | | contrast: 60 mL Isovue-370 FINDINGS: The IV bolus is adequate for | | | assessment of pulmonary embolism. There are no filling defects | | | demonstrated throughout the pulmonary arterial tree to suggest | | | pulmonary embolus. There are no filling defects in the atrium or | | | ventricles. The heart is normal in size. There is no pericardial or | | | pleural fluid. The thoracic aorta is normal in caliber with no | | | aneurysm or dissection. The thyroid is normal in appearance. There is | | | no axillary, hilar or mediastinal lymph node enlargement. There is | | | no pneumothorax. The lungs are clear without focal airspace | | | consolidation. There is moderate degenerative disc disease of the | | | thoracic spine. There are no acute rib fractures. The liver is smooth | | | in contour. There are no hepatic masses. The gallbladder is | | | surgically absent. The adrenals, spleen and pancreas are normal in | | | appearance. There is no free air noted. | | + + + + + | Procedure Note | + + | Richard, Rad Conversion - 09/21/2018 3:31 PM PDT [facility] [id number] years MaleCT | | CHEST PULMONARY EMBOLISM W CONTRAST05/26/2013 2:24 PM HISTORY: Chest pain with elevation | | of d-dimer COMPARISON: 04/18/13 TECHNIQUE:1.5-mm axial images of the chest were acquired | | in the arterial phase according to a CT angiography protocol. Coronal CT angiographic | | MIP reconstructions were performed by supervisor microbiology technologists. No 3-D imaging.IV contrast: 60 mL | | Isovue-370 FINDINGS: The IV bolus is adequate for assessment of pulmonary embolism. | | There are no filling defects demonstrated throughout the pulmonary arterial tree to | | suggest pulmonary embolus. There are no filling defects in the atrium or ventricles. The | | heart is normal in size. There is no pericardial or pleural fluid. The thoracic aorta | | is normal in caliber with no aneurysm or dissection. The thyroid is normal in | | appearance. There is no axillary, hilar or mediastinal lymph node enlargement. There is | | no pneumothorax. The lungs are clear without focal airspace consolidation. There is | | moderate degenerative disc disease of the thoracic spine. There are no acute rib | | fractures. The liver is smooth in contour. There are no hepatic masses. The gallbladder | | is surgically absent. The adrenals, spleen and pancreas are normal in appearance. There | | is no free air noted. IMPRESSION: 1. No evidence of pulmonary embolism.2. Status post | | cholecystectomy. | | | |There is no pneumothorax. The lungs are clear without focal airspace consolidation. There i s moderate degenerative disc disease of the thoracic spine. There are no acute rib fractures . The liver is smooth in contour. There are no hepatic masses. The | |gallbladder is surgically absent. The adrenals, spleen and pancreas are normal in appearanc e. There is no free air noted. | | | |IMPRESSION: | |1. No evidence of pulmonary embolism. | |2. Status post cholecystectomy. | | | | | + + XR Chest 2 Vws (05/26/2013 10:15 AM PDT) + + | Specimen | + + | | + + + + + | Impressions | Performed At | + + + | 1. No acute cardiopulmonary process. | | + + + + + + | Narrative | Performed At | + + + | NOR[facility] GR 1955 57 years Male XR CHEST 2 VIEW FRONTAL | | | AND LATERAL 05/26/2013 10:15 AM INDICATION: Chest pain | | | COMPARISON: 05/19/13 TECHNIQUE: Two view chest, PA and lateral | | | views FINDINGS: The cardiomediastinal contours are normal. There | | | is no mediastinal widening or shift. No pneumothorax or effusion. | | | The lungs are clear with no focal consolidation or pulmonary | | | nodules. Mild degenerative disc disease of the thoracic spine is | | | present with osteophyte formation. | | + + + + + | Procedure Note | + + | Richard, Rad Conversion - 09/21/2018 3:31 PM PDT NOR[facility] [id number] years MaleXR | | CHEST 2 VIEW FRONTAL AND LATERAL05/26/2013 10:15 AM INDICATION: Chest pain COMPARISON: | | 05/19/13 TECHNIQUE: Two view chest, PA and lateral views FINDINGS: The cardiomediastinal | | contours are normal. There is no mediastinal widening or shift. No pneumothorax or | | effusion. The lungs are clear with no focal consolidation or pulmonary nodules. Mild | | degenerative disc disease of the thoracic spine is present with osteophyte formation. | | IMPRESSION: 1. No acute cardiopulmonary process. | |COMPARISON: 05/19/13 | | | |TECHNIQUE: Two view chest, PA and lateral views | | | |FINDINGS: The cardiomediastinal contours are normal. There is no mediastinal widening or s hift. No pneumothorax or effusion. The lungs are clear with no focal consolidation or pulm onary nodules. Mild | |degenerative disc disease of the thoracic spine is | |present with osteophyte formation. | | | |IMPRESSION: | |1. No acute cardiopulmonary process. | | | | | + + Type and Screen (05/26/2013 9:40 AM PDT) + + + + + + | Component | Value | Ref Range | Performed | Pathologist | | | | | At | Signature | + + + + + + | ABO Rh | A POSITIVE | | EXTERNAL | | | | | | LAB | | + + + + + + | ABO Rh | Testing performed at | | EXTERNAL | | | | [facility];[address] | | LAB | | | | [address];[place] [address] | | | | + + + + + + | Antibody | NEGATIVE | | EXTERNAL | | | Screen | | | LAB | | + + + + + + | Antibody | Testing performed at | | EXTERNAL | | | Screen | [facility];[address] | | LAB | | | | [address];[place] [address] | | | | + + + + + + | BB BAND | [id number] | | EXTERNAL | | | | | | LAB | | + + + + + + | BB BAND | Testing performed at | | EXTERNAL | | | | [facility];[address] | | LAB | | | | [address];[place] [address] | | | | + + + [...] +---------+ + + HISTORICAL LAB PANEL RESULT (05/26/2013 9:40 AM PDT) + + + + + -+ | Component | Value | Ref Range | Performed | Pathologist | | | | | At | Signature | + + + + + -+ | WBC | 7.9Comment: Testing | 3.8 - 11.0 K/uL | EXTERNAL | | | | performed at [facility];[address] | | LAB | | | | [address];[place] | | | | | | [address] | | | | + + + + + -+ | Non- | 4.61Comment: Testing | 4.20 - 5.70 | EXTERNAL | | | Red Blood | performed at [facility];[address] | M/uL | LAB | | | Cells | [address];[place] | | | | | Counted | [address] | | | | + + + + + -+ | Hemoglobin | 12.5 (L)Comment: Testing | 13.2 - 17.0 | EXTERNAL | | | | performed at [facility];[address] | g/dL | LAB | | | | [address];[place] | | | | | | [address] | | | | + + + + + -+ | Hematocrit, | 38.1 (L)Comment: Testing | 39.0 - 50.0 % | EXTERNAL | | | POC | performed at [facility];[address] | | LAB | | | | [address];[place] | | | | | | [address] | | | | + + + + + -+ | MCV | 82.5Comment: Testing | 80.0 - 100.0 fl | EXTERNAL | | | | performed at [facility];[address] | | LAB | | | | [address];[place] | | | | | | [address] | | | | + + + + + -+ | MCH | 27.1Comment: Testing | 27.0 - 34.0 pg | EXTERNAL | | | | performed at [facility];[address] | | LAB | | | | [address];[place] | | | | | | [address] | | | | + + + + + -+ | MCHC | 32.9Comment: Testing | 32.0 - 35.5 | EXTERNAL | | | | performed at [facility];[address] | g/dL | LAB | | | | [address];[place] | | | | | | [address] | | | | + + + + + -+ | RDW-CV | 43.8Comment: Testing | 37 - 53 fl | EXTERNAL | | | | performed at [facility];[address] | | LAB | | | [address];[place] | | | | | | [address] | | | | + + + + + -+ | Platelet | 241Comment: Testing | 150 - 400 K/uL | EXTERNAL | | | Count | performed at [facility];[address] | | LAB | | | Plasma | [address];[place] | | | | | | [address] | | | | + + + + + -+ | MPV | 7.2Comment: Testing | fl | EXTERNAL | | | | performed at [facility];[address] | | LAB | | | | [address];[place] | | | | | | [address] | | | | + + + + + -+ | Differentia | AUTOMATEDComment: | | EXTERNAL | | | l Type | Testing performed at | | LAB | | | | [facility];[address] | [address];[place] [address] | | | | + + + + + -+ | % Segmented | 63.4Comment: Testing | % | EXTERNAL | | | | performed at [facility];[address] | | LAB | | | Neutrophils | [address];[place] | | | | | | [address] | | | | + + + + + -+ | % | 24.4Comment: Testing | % | EXTERNAL | | | Lymphocytes | performed at [facility];[address] | | LAB | | | | [address];[place] | | | | | | [address] | | | | + + + + + -+ | % Monocytes | 8.9Comment: Testing | % | EXTERNAL | | | | performed at [facility];[address] | | LAB | | | | [address];[place] | | | | | | [address] | | | | + + + + + -+ | % | 3.0Comment: Testing | % | EXTERNAL | | | Eosinophils | performed at [facility];[address] | | LAB | | | | [address];[place] | | | | | | [address] | | | | + + + + + -+ | % Basophils | 0.3Comment: Testing | % | EXTERNAL | | | | performed at [facility];[address] | | LAB | | | | [address];[place] | | | | | | [address] | | | | + + + + + -+ | Absolute | 5.0Comment: Testing | 1.9 - 7.4 K/uL | EXTERNAL | | | Segmented | performed at [facility];[address] | | LAB | | | Neutrophils | [address];[place] | | | | | | [address] | | | | + + + + + -+ | Absolute | 1.9Comment: Testing | 1.0 - 3.9 K/uL | EXTERNAL | | | Lymphocytes | performed at [facility];[address] | | LAB | | | | [address];[place] | | | | | | [address] | | | | + + + + + -+ | Absolute | 0.7Comment: Testing | 0 - 0.8 K/uL | EXTERNAL | | | Monocytes | performed at [facility];[address] | | LAB | | | | [address];[place] | | | | | | [address] | | | | + + + + + -+ | Absolute | 0.2Comment: Testing | 0 - 0.5 K/uL | EXTERNAL | | | Eosinophils | performed at [facility];[address] | | LAB | | | | [address];[place] | | | | | | [address] | | | | + + + + + -+ | Absolute | 0.0Comment: Testing | 0 - 0.1 K/uL | EXTERNAL | | | Basophils | performed at [facility];[address] | | LAB | | | | [address];[place] | | | | | | [address] | | | | + + + + + -+ | Na | 139Comment: Testing | 135 - 143 | EXTERNAL | | | | performed at [facility];[address] | mmol/L | LAB | | | | [address];[place] | | | | | | [address] | | | | + + + + + -+ | K | 4.0Comment: Testing | 3.5 - 4.9 | EXTERNAL | | | | performed at [facility];[address] | mmol/L | LAB | | | | [address];[place] | | | | | | [address] | | | | + + + + + -+ | Cl | 104Comment: Testing | 99 - 109 mmol/L | EXTERNAL | | | | performed at [facility];[address] | | LAB | | | | [address];[place] | | | | | | [address] | | | | + + + + + -+ | CO2 | 30Comment: Testing | 23 - 32 mmol/L | EXTERNAL | | | | performed at [facility];[address] | | LAB | | | | [address];[place] | | | | | | [address] | | | | + + + + + -+ | Anion Gap | 9Comment: Testing | 5 - 20 mmol/L | EXTERNAL | | | | performed at [facility];[address] | | LAB | | | | [address];[place] | | | | | | [address] | | | | + + + + + -+ | Glucose, | 216 (H)Comment: Testing | 65 - 99 mg/dL | EXTERNAL | | | Fasting | performed at [facility];[address] | | LAB | | | | [address];[place] | | | | | | [address] | | | | + + + + + -+ | BUN | 16Comment: Testing | 8 - 25 mg/dL | EXTERNAL | | | | performed at [facility];[address] | | LAB | | | | [address];[place] | | | | | | [address] | | | | + + + + + -+ | Creatinine | 1.24Comment: Testing | 0.70 - 1.30 | EXTERNAL | | | | performed at [facility];[address] | mg/dL | LAB | | | | [address];[place] | | | | | | [address] | | | | + + + + + -+ | BUN/Creatin | 13Comment: Testing | | EXTERNAL | | | ine Ratio | performed at [facility];[address] | | LAB | | | | [address];[place] | | | | | | [address] | | | | + + + + + -+ | Calcium | 8.3 (L)Comment: Testing | 8.5 - 10.2 | EXTERNAL | | | | performed at [facility];[address] | mg/dL | LAB | | | | [address];[place] | | | | | | [address] | | | | + + + + + -+ | Protein, | 6.9Comment: Testing | 6.3 - 8.2 g/dL | EXTERNAL | | | Total | performed at [facility];[address] | | LAB | | | | [address];[place] | | | | | | [address] | | | | + + + + + -+ | Albumin | 3.2 (L)Comment: Testing | 3.6 - 5.0 g/dL | EXTERNAL | | | | performed at [facility];[address] | | LAB | | | | [address];[place] | | | | | | [address] | | | | + + + + + -+ | Globulin | 3.7Comment: Testing | 1.3 - 4.9 g/dL | EXTERNAL | | | | performed at [facility];[address] | | LAB | | | | [address];[place] | | | | | | [address] | | | | + + + + + -+ | A/G Ratio | 0.9 (L)Comment: Testing | 1.0 - 2.4 | EXTERNAL | | | | performed at [facility];[address] | | LAB | | | | [address];[place] | | | | | | [address] | | | | + + + + + -+ | Bilirubin | 0.3Comment: Testing | 0.1 - 1.5 mg/dL | EXTERNAL | | | Total | performed at [facility];[address] | | LAB | | | | [address];[place] | | | | | | [address] | | | | + + + + + -+ | ALP, | 74Comment: Testing | 35 - 115 U/L | EXTERNAL | | | External | performed at [facility];[address] | | LAB | | | | [address];[place] | | | | | | [address] | | | | + + + + + -+ | AST | 27Comment: Testing | 10 - 45 U/L | EXTERNAL | | | | performed at [facility];[address] | | LAB | | | | [address];[place] | | | | | | [address] | | | | + + + + + -+ | ALT | 25Comment: Testing | 10 - 65 U/L | EXTERNAL | | | | performed at [facility];[address] | | LAB | | | | [address];[place] | | | | | | [address] | | | | + + + [...] | | | | | | at [facility];[address];[place] [address] | | | | + + + + + -+ | CK, Total | 117Comment: Testing | 55 - 400 U/L | EXTERNAL | | | | performed at [facility];[address] | | LAB | | | | [address];[place] | | | | | | [address] | | | | + + + + + -+ | INR | 1.1Comment: REFERENCE | | [...] [facility];[address] | | | | | [address];[place] | | | | | | [address] | | | | + + + + + -+ | aPTT, | 24Comment: Testing | 23 - 32 seconds | EXTERNAL | | | Patient | performed at [facility];[address] | | LAB | | | | [address];[place] | | | | | | [address] | | | | + + + + + -+ | CK-MB | 3.9 (H)Comment: Testing | 0.5 - 3.6 ng/mL | EXTERNAL | | | | performed at [facility];[address] | | LAB | | | | [address];[place] | | | | | | [address] | | | | + + + + + -+ | CK-MB Index | 3.3Comment: CK INDEX | | EXTERNAL | | [...] | | + +---------+ + + D-Dimer (05/26/2013 9:40 AM PDT) + + + + + + | Component | Value | Ref Range | Performed | Pathologist | | | | | At | Signature | + + + + + + | D-DIMER, | 1.12 (H)Comment: D Dimer | 0.19 - 0.50 [...] performed at [facility] | | | | | | [facility];[place], [place] | | | | | | [address] | | | | + + + + + + + + | Specimen | + + | | + + + +---------+ + + | Performing | Address | City/State/Zipcode | Phone Number | | Organization | | | | + +---------+ + + | EXTERNAL LAB | | | | + +---------+ + + ECG 12 lead (05/26/2013 9:25 AM PDT) + + + + + + | Component | Value | Ref Range | Performed | Pathologist | | | | | At | Signature | + + + + + + | DIAGNOSIS: | Sinus | | EXTERNAL | | | | bradycardiaNonspecific T | | LAB | | | | wave | | | | | | abnormalityAbnormal | | | | | | ECGWhen compared with | | | | | | ECG of 19-MAY-2013 | | | | | | 22:56,Nonspecific T wave | | | | | | abnormality now evident | | | | | | in Anterolateral | | | | | [...] ([phone]), | | | | | | medical transcription editor Leanna Cheng | | | | | | (29) on 05/26/2013 | | | | | | 4:36:23 PM | | | | + + + + + + + + | Specimen | + + | | + + + + + | Narrative | Performed At | + + + | [facility]ically [facility] | EXTERNAL LAB | + + + + +---------+ + + | Performing | Address | City/State/Zipcode | Phone Number | | Organization | | | | + +---------+ + + | EXTERNAL LAB | | | | + +---------+ + + documented in this encounter Visit Diagnoses + + | Diagnosis | + + | Chest pain, atypical Other chest pain | + + | COPD (chronic obstructive pulmonary disease) (HCC) Chronic airway obstruction, not | | elsewhere classified | + + | GIB (gastrointestinal bleeding) Hemorrhage of gastrointestinal tract, unspecified | + + | HTN (hypertension) Unspecified essential hypertension | + + | Paroxysmal atrial fibrillation (HCC) Atrial fibrillation | + + | Labile hypertension Unspecified essential hypertension | + + | Lower GI bleed Hemorrhage of gastrointestinal tract, unspecified | + + | DM type 2 (diabetes mellitus, type 2) (HCC) Type II or unspecified type diabetes | | mellitus without mention of complication, not stated as uncontrolled | + + | Hypertension Unspecified essential hypertension | + + | Hyperglycemia Other abnormal glucose | + + | Accelerated hypertension Essential hypertension, malignant | + + | Atrial fibrillation (HCC) Atrial fibrillation | + + | Chest pain Chest pain, unspecified | + + | Chronic back pain Backache, unspecified | + + documented in this encounter
--- OUTSIDE RECORDS SUMMARY | ~2019-10-12 | XMS | Encounter Summary ---
Demographics + + + | Address | [address] | | | [place] [address] | + + + | Home Phone [...] + + + | Author | [facility] | | | and [place] | + + + | Organization | [facility] | | | and [place] | + + + | Address | Unknown | + + + | Phone | Unavailable | + + + Support + + + + + | Name | Relationship | Address | Phone | + + + + + | Sammi Kohler | ECON | [place] [address] | | + + + + + Care Team Providers + +------+ + | Care Product Development Director Name | Role | Phone | + +------+ + | Mireya Pack NP | PCP | | + +------+ + Reason for Visit +--------+--------+ + | Reason | Onset | Comments | | | Date | | +--------+--------+ + | Other | 07/21/ | | | | 2020 | | +--------+--------+ + Encounter Details +--------+ + + + + | Date | Type | Department | Care Team | Description | +--------+ + + + + | 07/21/ | Telephone | [facility] | Mireya Pack, | Other | | 2020 | | [facility] [address] | [employer] [address] | | | | | [address] | [address] [place], | | | | | [place], [place] | [place] [address] | | | | | [address] | [phone] | | | | | [phone] | | | +--------+ + + + [...] Miscellaneous Notes Telephone Encounter - Fanny Ramos, Turning Machine Operator Helper - 07/22/2019 2:11 PM PDTCalmeliza light pt and scheduled him for [facility] ED f/u visit on 07/31/19 @ 11:30am. Pt states he will bring all medications he is currently taking to appt. elephone Encounter - Mireya Pack NP - 2:04 PM PDTRecommennadege schedule in person visit 07/31/19 and bring all medications to appointment I could perform a quick tele visit 07/23/19 if acute concerns elephone Encounter - Diane Hill, RN - 07/22/2019 1:40 PM PDTPt is trying to schedule a follow up visit for [facility] ER visit from 07-15-19. Please advise when you would like to see this pt. He is able to do a virtual visit.Electro nically signed by Diane Hill, EVE at 07/22/2019 1:48 PM PDTTelephone Encounter - Heidi Moody - 07/22/2019 1:10 PM PDTPatient was in the hospital and needs to make an apt plea se call him at [phone] Heidi Moody elephone Encounter - Heidi Taylor - 07/22/2019 7:37 AM PDTPatient is calling to talk to RN Please call him at [phone] Heidi Moody documented in this enco unter Plan of Treatment +--------+ + + + + | Date | Type | Specialty | Care Team | Description | +--------+ + + + + | 10/16/ Anti-coag | Anticoagulation | Brittany Zaragoza | | | 2019 | visit | | [address] | | | | | | [place], | | | | | | [place] [address] | | | | | | [phone] | | | | | | | [...]
--- OUTSIDE RECORDS SUMMARY | ~2019-10-12 | XMS | Encounter Summary ---
Demographics + + + | Address | [address] | | | [place] [address] | + + + | Home Phone [...] + | Sammi Kohler | ECON | [place] [address] | | + + + + + Care Team Providers + +------+ + | Care Scientific Research Manager Name | Role | Phone | + +------+ + PCP | Unavailable | + +------+ + Encounter Details +--------+ + + + + | Date | Type | Department | Care Team | Description | +--------+ + + + + | 11/23/ | Emergency | [facility] | Norah Barker MD | Non-cardiac chest | | 2012 | | [facility] | [address] | pain; Diabetes | | | | EMERGENCY [facility]ENTER | [place] [address] | mellitus (HCC); | | | | [address] | [phone] | Renal insufficiency | | | | [place], [place] | | | | | | [address] | | | | | | [phone] | | | +--------+ + + + [...] ED Notes Conversion Transaction, Provider Unknown - 11/24/2011 5:44 AM PDTFormatting of this note m ight be different from the original. ED Notes by Leslie Velazquez RN at 11/24/11543 Author: Leslie Velazquez RN Service: (none) Author Type: Registered Nurse Filed: 11/24/11543 Date of Service: 11/24/11543 Status: Signed Excellence Specialist: Leslie Velazquez RN (Registered Nurse) Dr. Barker at bedside. Leslie Velazquez RN 11/24/11543 hNorah redding MD - 11/24/2011 5:42 AM PDTFormatting of this note might be different from the or iginal. ED Provider Notes by Norah Barker MD at 11/24/11541 Author: Norah Barker MD Service: (none) Author Type: Physician Filed: 11/24/11 0704 Date of Service: 11/24/11541 Status: Signed Excellence Specialist: Norah Barker MD (Physician) [facility] Department of Emergency Medicine History of Present Illness Patient Identification Norah Gr is a 55 y.o. male. Patient information was obtained from patient and EMS personnel. History/Exam limitations: none. Patient presented to the Emergency Department by: Ambulance Chief Complaint Chief Complaint Patient presents with Chest Pain 5:43 AM The patient complains of chest pain. The discomfort is described as moderate, located L lauren ed with radiation to the L side. Onset of symptoms was about 8:00 pm lastnight, with some i mprovement since that time. The chest pain occured while the patient was at home. The patie nt also complains of the following symptoms: diarrhea and chills. Patient's cardiac risk fa ctors include:diabetes. Care prior to arrival consisted of ASA given by EMS, with complete r elief. Occasional drinker JERRELL GUTIÉRREZ, DO, DO Past Medical History Diagnosis Date Diabetes mellitus type II Atrial fibrillation Hypertension Hyperlipidemia Past Surgical History Procedure Date Unlisted procedure arthroscopy Knee surgery Prior to Admission medications Medication Sig Start Date End Date Taking? Authorizing Provider ATENOLOL PO Take 100 mg by mouth. Yes Historical Provider cyanocobalamin 1000 MCG tablet Take 100 mcg by mouth daily. Yes Historical Provider diltiazem (DILACOR XR) 120 MG 24 hr capsule Take 120 mg by mouth daily. Yes Historical Provider fenofibrate (TRIGLIDE) 160 MG tablet Take 160 mg by mouth daily. Yes Historical Provide r glipiZIDE (GLUCOTROL) 5 MG tablet Take 5 mg by mouth 2 (two) times daily before meals. Yes Historical Provider METFORMIN HCL PO Take 1,000 mg by mouth 2 (two) times daily. Yes Historical Provider niacin (NIASPAN) 500 MG CR tablet Take 500 mg by mouth 2 (two) times daily. 2 tabs in am, 1 tab in pm Yes Historical Provider paroxetine (PAXIL) 40 MG tablet Take 40 mg by mouth every morning. Yes Historical Provi carlos ziprasidone (GEODON) 40 MG capsule Take 40 mg by mouth 2 (two) times daily with meals. Yes Historical Provider aspirin 81 MG EC tablet Take 1 tablet by mouth daily. 03/30/11 03/29/12 Nemesio Morley MD atenolol (TENORMIN) 100 MG tablet Take 100 mg by mouth 2 (two) times daily. Historical Provider TAMSULOSIN HCL PO Take 0.4 mg by [...] Review of Systems Constitutional: Negative for: fever, fatigue, sweats weight loss Positive for chills Eyes: Negative for: decreased vision or irritated eyes Nose: Negative for: nosebleed Throat: Negative for: mouth sores Cardiovascular/Respiratory: Negative for: cough Positive for chest pain Gastrointestinal: Negative for: abdominal pain, vomiting, black or bloody stools Positive for diarrhea Genitourinary: Negative for: dysuria, hematuria, urinary problems Musculoskeletal: Negative for: myalgias and arthralgias Skin: Negative for: laceration or lesion Neuro and psych: Negative for: fainting, head injury, seizure, trouble walking Endocrine/Heme/Lymph: Negative for: swollen lymph nodes, easy bruising Physical Exam BP 147/80 | Pulse 63 | Temp 98.4 F (36.9 C) | Resp 18 | Ht 1.778 m (5' 10") | Wt 102.05 9 kg (225 lb) | BMI 32.28 kg/m2 | SpO2 96% Vitals interpreted: Hypertensive Pulse Oximetry interpretation: Normal General: Alert, no active distress Eyes: Normal inspection, pupils equal and round, non-icteric ENT: Ears normal Nose normal Pharynx normal Neck: Normal inspection Supple No lymphadenopathy Cardiovascular: Normal rate and rhythm Respiratory: Lungs CTA Abdomen: Soft, non-tender, non-distended No guarding or rebound Back: Normal inspection Skin: Color normal Warm and dry No rash Neuro: No motor deficit No sensory deficit Medical Decision Making and Emergency Department Course ED Department Course 5:48 AM The patient presents with a chief complaint [...] troponin. Patient will be placed on the auto parts clerk to ensure no life thre atening arrhythmia develops and will be given supplemental oxygen via nasal cannula. He has had a recent normal stress and multiple evaluations for the same. Doubt structural disease . Troponin 0.01 6:41 AM I have discussed my clinical impression of non-cardiac chest pain that has resolved,and the associated treatment plan with the patient. We have specifically discussed the signs and s ymptoms that would constitute the need for an immediate return to the Emergency Department i ncluding recurrent or worsening pain, shortness of breath, fevers, cough, and leg swelling. I have also discussed the importance of continued outpatient follow up and further testing (if deemed necessary by the patient's regular doctor) and the importance of compliance with the discharge instructions. I have reviewed the results of any testing performed today with respect to their complaint of chest pain, and have answered any questions that the patient has to the best of my ability. Based upon the patient s history, physical exam, emergency department course, and any laboratory and diagnostic studies which may have been performed, I feel that there is no current emergent medical condition that warrants admission, transfe r, or further emergency department treatment at this time. Specifically the patient does no t demonstrate evidence of myocardial ischemia, myocarditis, venous thromboembolic disease, p neumonia, pneumothorax or aortic dissection. I have advised the patient of the need for rap id outpatient follow up and reassessment with their regular provider for further evaluation. Pt stable and ready for d/c. Records Reviewed Old medical records. Laboratory Evaluation Results Procedure Component Value Ref Range Date/Time Cardiac Panel [[id number]] (Abnormal) Collected:11/24/11 0542 Order Status:Completed Updated:11/24/11614 WBC 11.2 (H) 3.8 - 11.0 K/uL RBC 4.62 4.20 - 5.70 M/uL HGB 14.0 13.2 - 17.0 g/dL HCT 40.6 39.0 - 50.0 % MCV 88.0 80.0 - 100.0 fl MCH 30.4 27.0 - 34.0 pg MCHC 34.5 32.0 - 35.5 g/dL RDW SD 40.7 37 - 53 fl PLT 284 150 - 400 K/uL MPV 7.2 fl DIFF TYPE AUTOMATED NEUTROPHILS 46.1 40 - 75 % LYMPHOCYTES 35.9 15 - 48 % MONOCYTES 10.8 0 - 12 % EOSINOPHILS 6.6 0 - 7 % BASOPHILS 0.6 0 - 2 % NEUTROPHILS ABS 5.1 1.9 - 7.4 K/uL LYMPHOCYTES ABS 4.0 (H) 1.0 - 3.9 K/uL MONOCYTES ABS 1.2 (H) 0 - 0.8 K/uL EOSINOPHILS ABS 0.7 (H) 0 - 0.5 K/uL BASOPHILS ABS 0.1 0 - 0.1 K/uL SODIUM 141 135 - 143 mmol/L POTASSIUM 3.3 (L) 3.5 - 4.9 mmol/L CHLORIDE 102 99 - 109 mmol/L CO2 27 23 - 32 mmol/L ANION GAP AGAP 15 5 - 20 mmol/L GLUCOSE 135 (H) 65 - 99 mg/dL BUN 25 8 - 25 mg/dL CREATININE 1.45 (H) 0.70 - 1.30 mg/dL BUN/CREAT 17 CALCIUM 8.5 8.5 - 10.2 mg/dL TOTAL PROTEIN 7.3 6.3 - 8.2 g/dL Albumin 3.3 (L) 3.6 - 5.0 g/dL GLOBULIN 4.0 1.3 - 4.9 g/dL A/G 0.8 (L) 1.0 - 2.4 TBIL 0.4 0.1 - 1.5 mg/dL ALK PHOS 61 35 - 115 U/L AST 25 10 - 45 U/L ALT 22 10 - 65 U/L EGFR 54 (L) >60 mL/min/1.73m2 CPK 133 55 - 400 U/L INR 0.9 0.9 - 3.5 APTT 26 23 - 32 seconds MMB 1.5 0.5 - 3.6 ng/mL CK-MB Index 1.1 POC cardiac troponin [[id number]] Collected:11/24/1145 Order Status:Completed Updated:11/24/11558 POC CARDIAC TROPONIN 0.01 0.00 - 0.10 ng/mL I personally reviewed the lab results and they have been posted to the chart. Pertinent po sitive and negative findings have been addressed appropriately. Radiology and EKG Evaluation Imaging Results XR Chest AP Portable (Preliminary result) Result time:11/24/11612 ED Interpretation Documented by Norah Barker MD (11/24/11612, [facility] Emergency Department, Emergency Medicine) This ED initial read occurred during the ED course and management. The ED interpretation at the time the patient was being clinically managed, and prior to the radiology final read interpretation was: No acute infiltrate. No acute effusion. No cardiomegaly. Normal mediastinum. No pneumothorax. This study has been independently viewed and interpreted by myself. EKG from 5:37 am: Bradycardic sinus rhythm at 50 bpm. AR, QRS, QT, and axis are normal. No ST segment elevations or depression. No significant Q waves. Good R wave progression through the precordial leads. No acute ischemia. In comparison with an old ECG from 09-23-11 , he no longer has a prolonged QT and he is no bradycardic. This study has been independently vi ewed and interpreted by me. ED Diagnoses Final diagnoses Non-cardiac chest pain Resolved Diabetes mellitus Renal insufficiency Disposition: ED Disposition Discharge Condition at discharge: Good Follow-up Information Follow up With Details Comments Contact Info Jerrell Gutiérrez, DO Call in 2 days [address] [facility] [address] [facility] EMERGENCY DEPARTMENT As needed if symptoms worsen [address] [facility] [address] Discharge Medications: New Prescriptions No new medications Additional Documentation Procedures Attending Note: Documentation assistance provided by ELIAS COREAS (Scribe). Information recorded by the scribe has been reviewed and validated by me. I aruna laughlin with its contents. MD Norah Harris MD 11/24/11703 onversion Transactio n, Provider Unknown - 11/24/2011 5:38 AM PDT ED Notes by Leslie Velazquez RN at 11/24/11537 Author: Leslie Velazquez RN Service: (none) Author Type: Registered Nurse Filed: 11/24/11544 Date of Service: 11/24/11537 Status: Signed Excellence Specialist: Leslie Velazquez RN (Registered Nurse) Patient placed on auto parts clerk, cont pulse ox, BP cuff, and tele called for cont cardiac monitoring. Leslie Velazquez RN 11/24/11544 onver ivana Transaction, Provider Unknown - 11/24/2011 5:35 AM PDT ED Notes by Leslie Velazquez RN at 11/24/11534 Author: Leslie Velazquez RN Service: (none) Author Type: Registered Nurse Filed: 11/24/11534 Date of Service: 11/24/11534 Status: Signed Excellence Specialist: Leslie Velazquez, RN (Registered Nurse) Bed:06
Expected date:
Expected time:
Means of arrival:
Comments:
CP docume nted in this encounter Plan of Treatment +--------+ + + + + | Date | Type | Specialty | Care Team | Description | +--------+ + + + + | 10/16/ | Anti-coag | Anticoagulation | Brittany Zaragoza | | | 2019 | visit | | [address] | | | | | | [place], | | | | | | [place] [address] | | | | | | [phone] | | | | | | | | +--------+ + + + + documented as of this encounter Procedures + +--------+ + + + | Procedure Name | Priori | Date/Time | Associated Diagnosis | Comments | | | ty | | | | + +--------+ + + + | XR CHEST 1 VIEW | Routin | 11/24/2011 | | Results for this | | | e | 6:11 AM | | procedure are in the | | | | PDT | | results section. | + +--------+ + + + documented in this encounter Results XR Chest 1 Vw (11/24/2011 6:11 AM PDT) + + | Specimen | + + | | + + + + + | Narrative | Performed At | + + + | [facility] XR CHEST 1 VIEW 11/24/2011 6:05 AM HISTORY: | | | Chest pain. TECHNIQUE: One view chest. FINDINGS: Compared | | | with September 23, 2011. Heart size is normal. No acute lung | | | infiltrates or edema. No pneumothorax or pleural effusions. | | | IMPRESSION: 1. No acute findings in the chest. Electronically | | | signed by Joe De Dios MD on 11/24/2011 7:12 AM | | + + + + + | Procedure Note | + + | Joaquin Ramos Conversion - 09/29/2018 12:48 AM PDT [facility] CHEST 1 VIEW11/24/2011 | | 6:05 AM HISTORY:Chest pain. TECHNIQUE:One view chest. FINDINGS:Compared with September 22, | | 2011. Heart size is normal. No acute lung infiltrates or edema. No pneumothorax or | | pleural effusions. IMPRESSION:1. No acute findings in the chest. | |Chest pain. | | | |TECHNIQUE: | |One view chest. | | | |FINDINGS: | |Compared with September 23, 2011. Heart size is normal. No acute lung infiltrates or edema. No pneumothorax or pleural effusions. | | | |IMPRESSION: | |1. No acute findings in the chest. | | | | | + + documented in this encounter Visit Diagnoses + + | Diagnosis | + + | Non-cardiac chest pain Other chest pain | + + | Diabetes mellitus (HCC) Type II or unspecified type diabetes mellitus without mention | | of complication, not stated as uncontrolled | + + | Renal insufficiency Unspecified disorder of kidney and ureter | + + documented in this encounter
--- OUTSIDE RECORDS SUMMARY | ~2019-10-12 | XMS | Encounter Summary ---
Demographics + + + | Address | [address] | | | [place] [address] | + + + | Home Phone | | + + + | Preferred Language | Unknown | + + + | Marital Status | | + + + | Adventism Affiliation | [id number] | + + + | Race | White | + + + | Ethnic Group | Not or | + + + Author + + + | Author | [facility] | | | and [place] | + + + | Organization | [facility] | | | and [place] | + + + | Address | Unknown | + + + | Phone | Unavailable | + + + Support + + + + + | Name | Relationship | Address | Phone | + + + + + | Sammi Kohler | ECON | [place] [address] | | + + + + + Care Team Providers + +------+ + | Care Anesthesia Associate Name | Role | Phone | + +------+ + PCP | Unavailable | + +------+ + Encounter Details +--------+ + + + + | Date | Type | Department | Care Team | Description | +--------+ + + + + | 10/15/ | Hospital | [facility] | Conversion | | | 2014 | Encounter | [facility] | Transaction, | | | | | CLINICAL DECISION | Provider Unknown | | | | | [address] | [phone] | | | | | [place], [place] | | | | | | [address] | Thang Mitchell MD | | | | | [phone] | [address] | | | | | | [place] [address] | | | | | | [phone] | | | | | | | [...] Progress Notes Conversion Transaction, Provider Unknown - 10/15/2013 2:34 PM PDTFormatting of this note m ight be different from the original. Nurse Progress Note by Katerine Washington RN at 10/15/13 1434 Author: Katerine Washington RN Service: (none) Author Type: Registered Nurse Filed: 10/15/135 Date of Service: 10/15/131433 Status: Signed Outreach Specialist: Katerine Washington RN (Registered Nurse) Pt discharged. IV removed. Instructions given and pt states understanding. No c/o at this time. Discharged with family onver ivana Transaction, Provider Unknown - 10/15/2013 11:39 AM PDT Progress Notes by Breanne Elmore RPH at 10/15/131138 Author: Breanne Elmore RPH Service: (none) Author Type: Pharmacist Filed: 10/15/131138 Date of Service: 10/15/131138 Status: Signed Outreach Specialist: Breanne Elmore RPH (Pharmacist) Renal Dosing Monitoring: Kevyn Guzman 57 y.o. male Pharmacy dosing for renal function per Dr. Mitchell SCr 1.01, est. CrCl = 100 ml/min Plan per protocol: Medications dosed appropriately for current renal function. Pharmacy will continue monitoring patient for appropriate dosing per renal function. 10/15/2013 11:39 AM Pharmacist: Breanne Elmore docume nted in this encounter H&P Notes Thang Mitchell MD - 10/15/2013 10:45 AM PDTFormatting of this note might be different from t he original. H&P by Thang Mitchell MD at 10/15/13 1045 Author: Thang Mitchell MD Service: Cardiology Author Type: Physician Filed: 10/15/13 1049 Date of Service: 10/15/13 104 Status: Signed Outreach Specialist: Thang Mitchell MD (Physician) CHIEF COMPLAINT: Chief Complaint Patient presents with Chest Pain seen at [facility] HISTORY OF PRESENT ILLNESS: Kevyn Guzman is a very pleasant 57-year-old gentleman with complex medical history including diabetes mellitus, hypertension, sleep apnea, hyperlipidemia as well as slight me ntal retardation per his chart, who presented for evaluation of recurrent chest discomfort. Kevyn tells me that he has had chest pain for almost 2 years on and off. He described it as epigastric pressure which does not radiate. He is telling me that typically his pain happens if he eats and lies down, but later on told me it could happen any time even if he is "doin g something." He does not exercise per se, but he does walk sometimes and his chest discomfo rt has no rhythm or reason even with his activities. He visited the emergency room at [facility] multiple times with chest discomfort. He was prescribed nitroglycer in and he is not totally sure if the nitroglycerin would help him at all. He tells me isaias edwardsy they give him a nitroglycerin at the facility that he lives in and they take him to the emergency room. Reviewing his chart, he had 2 stress tests over the past couple of years, the last one in [facility] which suggested relatively benign findings, although a small fixe defect in the inferio r wall was noted on the last stress test. He tells me his blood pressure is high, but he als o admits a lot of anxiety that he takes "a pill for." He tells me that he passed out a week ago. However, he evidently was sleeping and rolled over in the bed and misjudged the dimensi ons of his bed and fell down on the floor. He was taken to the emergency room at [facility] where a CT scan suggested no significant pathology. Because of recurrent chest discomfort, he was referred for further evaluation. Currently, he is pain free. He do es tell me that he gets very short of breath with activities, but he thinks that also potent ially is part of his anxiety. Past medical history, SH, FH, and medications were reviewed in the chart. Medications: ALLERGIES: Allergies Allergen Reactions Vitamin B12 Rash REVIEW OF SYSTEMS: Constitutional: Positive for fatigue. No fever, chills, and rigors. No weight loss. HEENT: Negative for nosebleeds,ear discharge, nasal congestion or soar throat. Eyes: Negative for visual disturbance, redness, or secretion. Respiratory: Sleep apnea. Negative for cough, sputum production, hemoptysis, wheezing. Posi tive for exertional shortness of breath. Cardiovascular: Negative for orthopnea, palpitations and syncope. Positive for chest pain o r tightness. No LE edema. Gastrointestinal: Negative for nausea, vomiting, diarrhea, abdominal pain and blood in stoo l. Genitourinary: Negative for dysuria or hematuria. Musculoskeletal: Negative for myalgias. Positive for back pain and arthralgias. Skin: Negative for rash. Neurological: Negative for dizziness and syncope. No numbness. No recent falls. No slurred speech or amaurosis fugax. Hematological: No significant bruising. Psychiatric/Behavioral: No depression or anxiety. PHYSICAL EXAM Vital Signs: BP 168/80 | Pulse 82 | Resp 18 | Ht 1.753 m (5' 9") | Wt 110.678 kg (244 lb) | BMI 36.02 kg /m2 | SpO2 98% GENERAL APPEARANCE: Alert, oriented, cooperative, no distress, appears stated age. HEENT: No xanthelasmas. Extraocular movements were intact. No jaundice. Pupiles round and r eactive. NECK: No JVD, lymphadenopathy. Trachea is at midline. Thyroid is not palpable. Carotid upst rokes normal. No carotid bruit heard. CARDIAC: Regular rhythm and rate. There is normal S1 and S2. No galop. No murmur. Pedal pul ses intact. CHEST: Normal bilateral symmetrical chest excursion. Good bilateral air entry with no crack les or wheezing. No evidence of dullness. ABDOMEN: Obese. Soft and lax. No tenderness or guarding. No palpable organs. Active bowel s ounds. No pulsatile mass felt. EXTREMITIES: 1+ lower extremities edema. Occasioal varicose veins seen. NEURO: Alert and oriented times three with no focal deficit. Cranial nerves are grossly nor mal. SKIN: Warm and dry. No rash. Psych: Normal affect and mood. Lab Review Lab Results Component Value Date NA 140 10/05/2013 K 3.7 10/05/2013 CL 105 10/05/2013 CO2 27 10/05/2013 BUN 17 10/05/2013 CREATININE 1.12 10/05/2013 Lab Results Component Value Date CKTOTAL 201 10/05/2013 CKMB 4.4* 10/05/2013 CKMBINDEX 2.2 10/05/2013 TROPONINI <0.020 05/27/2013 Lab Results Component Value Date WBC 10.0 10/05/2013 HGB 13.1* 10/05/2013 HCT 38.0* 10/05/2013 MCV 79.7* 10/05/2013 PLT 265 10/05/2013 Lab Results Component Value Date CHOL 129 04/19/2013 TRIGSCR 265* 04/19/2013 LDLCALC 53 04/19/2013 GLUF 233* 10/05/2013 HGBA1C 7.1* 07/09/2013 ECG: I reviewed the EKG from August 22, 2013, which showed sinus tachycardia, with nonspecifi c ST abnormalities and borderline criteria for left ventricular hypertrophy. Imaging Chest X-Ray: Echocardiogram: 05/26/2013 1. Left ventricular systolic function is hyperdynamic with an estimated EF of >70%. 2. There is mild concentric left ventricular hypertrophy. 3. The left atrium is moderately dilated. 4. The right atrium is mildly enlarged. 5. There is no evidence of aortic stenosis. 6. There is no evidence of pulmonary hypertension. Nuclear Stress Test: HISTORY: 55-year-old male with chest pain TECHNIQUE: Stress rest chemical and exercise cardiac scintigram. 9.9 mCi of technetium 99m Myoview for rest imaging. Dose was 45 mCi for stress imaging. Gated multiplanar and SPECT images of the heart. Chemical stress agent -- .4 mg of Regadenson patient exercised for 2:03 minutes work level Max METs 1.30. Heart rate of 53 vasiliy to 88 be ats/min. 53% maximum age-predicted heart rate. Resting blood pressure of 143/71 changed to 1 76/82. Protocol complete. No significant arrhythmias or ST segment changes. FINDINGS: End-diastolic volume at rest -- 113 cc. 109 cc during stress. End systolic volume at rest -- 44 cc. 45 cc during stress. Ejection fraction was 61% at rest, 59% during stress. Ventricular volume was within the upper limits of but normal and ejection fraction and wall motion were also normal. TID. Calculated to be .99 Wall motion was normal. Cardiac scintigram demonstrates some slight diaphragmatic attenuation, patient could not to lerate prone imaging but this is not consequential. No evidence of reversible defects over t he stress portion of the examination. IMPRESSION: 1. Normal chamber size, wall motion and ejection fraction 2. No convincing evidence of reversibility 3. Hypertension which could be independent risk factor for cardiac events and other disease SSMENT: 1. Chest pain. 2. Diabetes mellitus. 3. Hyperlipidemia. 4. Hypertension. 5. Anxiety. 6. Obesity. 7. Sleep apnea. 8. Mild mental retardation. 9. No significant history of tobacco dependence although chronic obstructive pulmonary dise ase was documented. 10. Also documented in his chart, paroxysmal atrial fibrillation although himself really di d not have any insight on that. I did review multiple EKGs in his chart, and I did see one E KG showing atrial fibrillation documented on August 13, 2012. Plan: Kevyn presents with chest discomfort that has atypical features of angina pectoris, yet it is recurrent despite a benign stress test. Although GI source is possible, however he does h ave numerous risk factors for CAD and I think we need to settle the issue of underlying mode nary artery disease once and for all and I do recommend proceeding with coronary angiography . I did explain to him the procedure and actually he did have very appropriate answers and u nderstanding. Looking at his EKGs, he did have 1 EKG documented with atrial fibrillation on August 13, 2012. There is no more recent EKG showing atrial fibrillation, however. I think if this gentleman represents with atrial fibrillation, then perhaps anticoagulation therapy should be conside red given his multiple risks for underlying thromboembolic phenomena with atrial fibrillatio n and high CHADS2 score. In any event, I will proceed with coronary angiography this coming week and based on that radu alonso recommendations will follow. Informed consent was obtained. Because he is on 2 calcium channel blockers, I asked him to stop his diltiazem and increase his Norvasc to 5 mg p.o. daily hopefully for better control of his blood pressure. If he wa s found to have coronary artery disease, then a beta linda will be added which also will h elp for rate control. THANG MITCHELL MD 10/09/2013 [facility]: Cardiology Pre-Operative History & Physical Interval Update There have been no significant clinical changes since the completion of the provided H&P. Please see scanned copy. THANG MITCHELL MD 10/15/2013 10:49 AM *CORE MEASURES REMINDER: If the patient has a known or suspected infection prior to surger y, please add diagnosis to the problem list (consider: Infection 136.9). documented in this enco unter Plan of Treatment +--------+ + + + + | Date | Type | Specialty | Care Team | Description | +--------+ + + + + | 10/16/ | Anti-coag | Anticoagulation | Brittany Zraagoza | | | 2020 | visit | | [address] | | | | | | [address] [place], | | | | | | [place] [address] | | | | | | [phone] | | | | | | | | +--------+ + + + + documented as of this encounter Procedures + +--------+ + + + | Procedure Name | Priori | Date/Time | Associated Diagnosis | Comments | | | ty | | | | + +--------+ + + + | POC GLUCOSE | Routin | 10/15/2013 | | Results for this | | | e | 9:35 AM | | procedure are in the | | | | PDT | | results section. | + +--------+ + + + | EXTERNAL LAB: CBC | Routin | 10/15/2013 | | Results for this | | | e | 9:30 AM | | procedure are in the | | | | PDT | | results section. | + +--------+ + + + | BASIC METABOLIC | Routin | 10/15/2013 | | Results for this | | PANEL | e | 9:30 AM | | procedure are in the | | | | PDT | | results section. | + +--------+ + + + documented in this encounter Results POC Glucose (10/15/2013 9:35 AM PDT) + + + + + + | Component | Value | Ref Range | Performed | Pathologist | | | | | At | Signature | + + + + + + | Glucose, | 95Comment: Testing | 65 - 99 mg/dL | EXTERNAL | | | Fingerstick | performed at [facility];[address] | | LAB | | | | [address];[place] | | | | | | [address] | | | | + + + + + + + + | Specimen | + + | | + + + +---------+ + + | Performing | Address | City/State/Zipcode | Phone Number | | Organization | | | | + +---------+ + + | EXTERNAL LAB | | | | + +---------+ + + External Lab: CBC (10/15/2013 9:30 AM PDT) + + + + + + | Component | Value | Ref Range | Performed | Pathologist | | | | | At | Signature | + + + + + + | WBC | 9.6Comment: Testing | 3.8 - 11.0 K/uL | EXTERNAL | | | | performed at [facility];[address] | | LAB | | | | [address];[place] | | | | | | [address] | | | | + + + + + + | Non- | 5.34Comment: Testing | 4.20 - 5.70 | EXTERNAL | | | Red Blood | performed at [facility];[address] | M/uL | LAB | | | Cells | [address];[place] | | | | | Counted | [id number] | | | | + + + + + + | Hemoglobin | 14.3Comment: Testing | 13.2 - 17.0 | EXTERNAL | | | | performed at [facility];[address] | g/dL | LAB | | | | [address];[place] | | | | | | [address] | | | | + + + + + + | Hematocrit, | 42.9Comment: Testing | 39.0 - 50.0 % | EXTERNAL | | | POC | performed at [facility];[address] | | LAB | | | | [address];[place] | | | | | | [address] | | | | + + + + + + | MCV | 80.3Comment: Testing | 80.0 - 100.0 fl | EXTERNAL | | | | performed at [facility];[address] | | LAB | | | | [address];[place] | | | | | | [address] | | | | + + + + + + | MCH | 26.8 (L)Comment: Testing | 27.0 - 34.0 pg | EXTERNAL | | | | performed at [facility];[address] | | LAB | | | | [address];[place] | | | | | | [address] | | | | + + + + + + | MCHC | 33.4Comment: Testing | 32.0 - 35.5 | EXTERNAL | | | | performed at [facility];[address] | g/dL | LAB | | | | [address];[place] | | | | | | [address] | | | | + + + + + + | RDW-CV | 42.9Comment: Testing | 37 - 53 fl | EXTERNAL | | | | performed at [facility];[address] | | LAB | | | | [address];[place] | | | | | | [address] | | | | + + + + + + | Platelet | 347Comment: Testing | 150 - 400 K/uL | EXTERNAL | | | Count | performed at [facility];[address] | | LAB | | | Plasma | [address];[place] | | | | | | [address] | | | | + + + + + + | MPV | 7.3Comment: Testing | fl | EXTERNAL | | | | performed at [facility];[address] | | LAB | | | | [address];[place] | | | | | | [address] | | | | + + + + + + | Differentia | AUTOMATEDComment: | | EXTERNAL | | | l Type | Testing performed at | | LAB | | | | [facility];[address];[place] [address] | | | | + + + + + + | % Segmented | 56.8Comment: Testing | % | EXTERNAL | | | | performed at [facility];[address] | | LAB | | | Neutrophils | [address];[place] | | | | | | [address] | | | | + + + + + + | % | 30.9Comment: Testing | % | EXTERNAL | | | Lymphocytes | performed at [facility];[address] | | LAB | | | | [address];[place] | | | | | | [address] | | | | + + + + + + | % Monocytes | 8.5Comment: Testing | % | EXTERNAL | | | | performed at [facility];[address] | | LAB | | | | [address];[place] | | | | | | [address] | | | | + + + + + + | % | 3.2Comment: Testing | % | EXTERNAL | | | Eosinophils | performed at [facility];[address] | | LAB | | | | [address];[place] | | | | | | [address] | | | | + + + + + + | % Basophils | 0.6Comment: Testing | % | EXTERNAL | | | | performed at [facility];[address] | | LAB | | | | [address];[place] | | | | | | [address] | | | | + + + + + + | Absolute | 5.5Comment: Testing | 1.9 - 7.4 K/uL | EXTERNAL | | | Segmented | performed at [facility];[address] | | LAB | | | Neutrophils | [address];[place] | | | | | | [address] | | | | + + + + + + | Absolute | 3.0Comment: Testing | 1.0 - 3.9 K/uL | EXTERNAL | | | Lymphocytes | performed at [facility];[address] | | LAB | | | | [address];[place] | | | | | | [address] | | | | + + + + + + | Absolute | 0.8Comment: Testing | 0 - 0.8 K/uL | EXTERNAL | | | Monocytes | performed at [facility];[address] | | LAB | | | | [address];[place] | | | | | | [address] | | | | + + + + + + | Absolute | 0.3Comment: Testing | 0 - 0.5 K/uL | EXTERNAL | | | Eosinophils | performed at [facility];[address] | | LAB | | | | [address];[place] | | | | | | [address] | | | | + + + + + + | Absolute | 0.1Comment: Testing | 0 - 0.1 K/uL | EXTERNAL | | | Basophils | performed at [facility];[address] | | LAB | | | | [address];[place] | | | | | | [address] | | | | + + + [...] + +---------+ + + Basic Metabolic Panel (10/15/2013 9:30 AM PDT) + + + + + + | Component | Value | Ref Range | Performed | Pathologist | | | | | At | Signature | + + + + + + | Na | 141Comment: Testing | 135 - 143 | EXTERNAL | | | | performed at [facility];[address] | mmol/L | LAB | | | | [address];[place] | | | | | | [address] | | | | + + + + + + | K | 3.7Comment: Testing | 3.5 - 4.9 | EXTERNAL | | | | performed at [facility];[address] | mmol/L | LAB | | | | [address];[place] | | | | | | [address] | | | | + + + + + + | Cl | 106Comment: Testing | 99 - 109 mmol/L | EXTERNAL | | | | performed at [facility];[address] | | LAB | | | | [address];[place] | | | | | | [address] | | | | + + + + + + | CO2 | 29Comment: Testing | 23 - 32 mmol/L | EXTERNAL | | | | performed at [facility];[address] | | LAB | | | | [address];[place] | | | | | | [address] | | | | + + + + + + | Anion Gap | 9Comment: Testing | 5 - 20 mmol/L | EXTERNAL | | | | performed at [facility];[address] | | LAB | | | | [address];[place] | | | | | | [address] | | | | + + + + + + | Glucose, | 112 (H)Comment: Testing | 65 - 99 mg/dL | EXTERNAL | | | Fasting | performed at [facility];[address] | | LAB | | | | [address];[place] | | | | | | [address] | | | | + + + + + + | BUN | 17Comment: Testing | 8 - 25 mg/dL | EXTERNAL | | | | performed at [facility];[address] | | LAB | | | | [address];[place] | | | | | | [address] | | | | + + + + + + | Creatinine | 1.01Comment: Testing | 0.70 - 1.30 | EXTERNAL | | | | performed at [facility];[address] | mg/dL | LAB | | | | [address];[place] | | | | | | [address] | | | | + + + + + + | BUN/Creatin | 17Comment: Testing | | EXTERNAL | | | ine Ratio | performed at [facility];[address] | | LAB | | | | [address];[place] | | | | | | [address] | | | | + + + + + + | Calcium | 9.2Comment: Testing | 8.5 - 10.2 | EXTERNAL | | | | performed at [facility];[address] | mg/dL | LAB | | | | [address];[place] | | | | | | [address] | | | | + + + [...] | | | | | | at [facility];[address] [facility] | | | | | | [address];[place] [address] | | | | + + + [...]
--- OUTSIDE RECORDS SUMMARY | ~2019-10-12 | XMS | Encounter Summary ---
Demographics + + + | Address | [address] | | | [place] [address] | + + + | Home Phone | | + + + | Preferred Language | Unknown | + + + | Marital Status | | + + + | Zoroastrian Affiliation | 1027 | + + + | Race | White | + + + | Ethnic Group | Not or | + + + Author + + + | Author | [facility] | | | and [place] | + + + | Organization | [facility] | | | and [place] | + + + | Address | Unknown | + + + | Phone | Unavailable | + + + Support + + + + + | Name | Relationship | Address | Phone | + + + + + | Sammi Kohler | ECON | [place] [address] | | + + + + + Care Team Providers + +------+ + | Care Caterer'S Aide Name | Role | Phone | + [...] + + | 09/06/ | Emergency | [facility] | Breanne Hurtado, | Chest discomfort | | 2019 | | MEDICAL CENTER | DO [address] | (Primary Dx); | | | | EMERGENCY CENTER | [place] [address] | Urinary frequency; | | | | [address] | [phone] | Type 2 diabetes | | | | [place], [place] | | mellitus with | | | | [address] | | hyperglycemia, with | | | | [phone] | | long-term current | | | [...] sent through Care Everywhere.Diabetes, Long- Term Complications (Icelandic)Chest Pain, Uncertain Cause (Icelandic)documented in this encounte r Medications at Time [...] | | | | | | type (HCC) | | | | | | [...] | | | | use of insulin ([facility]) | | | | | [...] | | | | | | type (HCC) | | | | | | [...] Barber DO - 09/07/2019 6:45 AM PDT [facility] Department of Emergency Medicine 09/08/2019 6:45 AM [...] (HCC) 10/14/2017 Anxiety ARF (acute renal failure) ([facility]) 03/02/2013 Atrial fibrillation (HCC) Basal cell carcinoma 09/26/2012 arm and back COPD (chronic obstructive pulmonary disease) ([facility]) 03/02/2013 hypoxemia on 2 lts nc Depression Development delay Diabetes mellitus type II DVT (deep venous thrombosis) ([facility]) 03/29/2018 Facial droop 07/08/2013 GIB (gastrointestinal bleeding) 03/02/[address] Nur, rectal ulcers, nodule of GE junction Hypercholesterolemia 07/08/2013 Hyperlipidemia Hypertension 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 Obesity, Class I, BMI 30-34.9 07/08/2013 WARD (obstructive sleep apnea) 08/11/2012 does not use CPAP because of the noise Other chronic pain Renal failure Stroke (HCC) TIA (transient ischemic attack) Unspecified visual disturbance reading glasses Past Surgical History: Procedure Laterality Date ABDOMEN SURGERY CHOLECYSTECTOMY CHOLECYSTECTOMY, LAPAROSCOPIC 09/12/2012 Procedure: LAPAROSCOPIC - CHOLECYSTECTOMY; Surgeon: Jevon Vargas DO; Location: [facility] MAIN OR; Service: General; Laterality: N/A; COLONOSCOPY COLONOSCOPY 03/04/2013 Procedure: COLONOSCOPY; Surgeon: Howie Gibson MD; Location: [facility] ENDOSCOPY; Service: Gastroen terology; Laterality: N/A; HERNIA REPAIR 07/03/2013 Procedure: LAPAROSCOPIC - HERNIA - INCISIONAL; Surgeon: Jevon Vargas DO; Location: [facility] MAIN OR; Service: General; Laterality: N/A; KNEE SURGERY rt knee, patella LEG SURGERY LLE OTHER SURGICAL HISTORY UNLISTED PROCEDURE ARTHROSCOPY OTHER SURGICAL HISTORY Left 05/05/2014 SKIN LESION EXCISION - Procedure: EXCISION - LESION - FROZEN SECTION; Surgeon: Sy murcia MD; Location: [facility] MAIN OR; Service: Plastics; Laterality: Left; forearm SKIN BIOPSY SKIN CANCER EXCISION Left 10/10/2012 Procedure: EXCISION - SKIN CANCER; Surgeon: Sy Fierro MD; Location: [facility] MAIN OR; Service: Plastics; Laterality: Left; upper arm and upper back w/frozen section UPPER GASTROINTESTINAL ENDOSCOPY UPPER GASTROINTESTINAL ENDOSCOPY 03/03/2013 Procedure: ESOPHAGOGASTRODUODENOSCOPY; Surgeon: Howie Gibson MD; Location: [facility] ENDOSCOPY; rvice: Gastroenterology; Laterality: N/A; Prior [...] (BLOOD GLUCOSE MONITOR SYSTEM) w/Device KIT Dispense [facility] patient preference Blood Pressure KIT Dispense as [...] Mon, Wed, Fri; 5 mg all ot days . warfarin (COUMADIN) 5 mg tablet [...] file Gets together: Not on file Attends taoist service: Not on file Active member of [...] Positive positive for chest pain Positive for [id number] Negative for cough GI: Positive for abdominal [...] available (Using the electronic record system of [facility], with regard to the past medical/surgical history, previous medications, and all ergies). Laboratory Evaluation Results Procedure Component Value Ref Range Date/Time B Type Natriuretic Peptide [[id number]] Collected: 09/07/19724 Order Status: Completed Specimen: Blood Updated: 09/07/19 0801 BNP 34.86 0 - 100 pg/mL Comprehensive Metabolic Panel [[id number]] (Abnormal) Collected: 09/07/19725 Order Status: Completed Specimen: [...] Estimated GFR >60 >60 mL/min/1.73m2 Troponin I [[id number]] Collected: 09/07/19725 Order Status: Completed Specimen: Blood Updated: 09/07/19758 Troponin I 0.019 0.00 - 0.04 ng/mL Protime INR [[id number]] Collected: 09/07/19725 Order Status: Completed Specimen: Blood Updated: 09/07/19753 INR 2.2 PTT [[id number]] (Abnormal) Collected: 09/07/19725 Order Status: Completed Specimen: Blood Updated: 09/07/19753 PTT 34 23 - 32 seconds Urinalysis With Microscopic [[id number]] (Abnormal) Collected: 09/07/19730 Order Status: Completed Specimen: Urine Updated: 09/07/19744 Color, UA YELLOW Clarity, Urine CLEAR Specific [place], Urine 1.020 1.002 - 1.030 Leukocyte esterase, [...] NONE Mucus, Urine 1+ CBC with Differential [[id number]] (Abnormal) Collected: 09/07/19725 Order Status: Completed Specimen: [...] Practitioner - Gerontology Contact information: [address] [facility] [address] [facility]. Specialty: Emergency Medicine Why: If symptoms worsen, As needed Contact information: [address] [facility] [phone] This chart has in part been created using Fr[employer] Speech Recognition software. The c abbott has been reviewed and there may still exist sound alike word errors. Breanne Hurtado DO Procedures Breanne Hurtado DO 09/08/191901 Germaine Mcdermott RN - 09/07/2019 6:33 AM PDTBed: ED03 Expected date: Expected time: Means of arrival: Comments: 1721 documented in th is encounter Plan of Treatment +--------+ + + + + | Date | Type | Specialty | Care Team | Description | +--------+ + + + + | 10/16/ | Anti-coag | Anticoagulation | Brittany Zaragoza | | | 2019 | visit | | [address] | | | | | | [address] [facility], | | | | | | [place] [address] | | | | | | [phone] | | | | | | | [...] | | | 09/06/ | | | 2020 | | | [...] | | | ON?08/ | | | /202 | | | 0 | | | 06:33? | | | GR, | | | NORAH | | | | | | M?MRN: | | | | | | [id number] | | | [id number] | | | riteri | | | [...] | | | St. | | | [place] | | | y | | | [...] | | | St. | | | [place] | | | y H. | | [...] | | | St. | | | [place] | | | y H. | | [...] | | | [place] | | | Wage Adjuster | | | al | | | [...] | | | [place] | | | [place] | | | al | | | [...] | | | [place], | | | [employer]ER | | | Nurse | | | [...] | | | [id number] | | | [id number] | | | 03 | | | [...] - 1.030 | [facility] | | | [place], | | | LABORATORY | | | [...] | | | Urine | performed at [facility];[address] | | LABORATORY | | | | [address];[place], [place] | | | | | | [address] | | | | + + + + + + + + | Specimen | + + | Urine | + + + + + + + | Performing | Address | City/State/Zipcode | Phone Number | | Organization | | | | + + + + + | [facility] | [address] | [place] [address] | [phone] | + + + + + Troponin I (09/07/2019 7:26 AM PDT) + + + + + + | Component | Value | Ref Range | Performed | Pathologist | | | | | At | Signature | + + + + + + | Troponin I | 0.019Comment: 0.04 | 0.00 - 0.04 | [facility] [...] | | [facility];[address] [facility] | | | | | | [facility];[place] [address] | | | | + + + + + + + + | Specimen | + + | Blood | + + + + + + + | Performing | Address | City/State/Zipcode | Phone Number | | Organization | | | | + + + + + | [facility] | [address] | [place] [address] | [phone] | + + + + + PTT (09/07/2019 7:26 AM PDT) + + + + + + | Component | Value | Ref Range | Performed | Pathologist | | | | | At | Signature | + + + + + + | PTT | 34 (H)Comment: Testing | 23 - 32 seconds | [facility] | | | | performed at [facility];[address] | | LABORATORY | | | | [address];[place] | | | | | | [address] | | | | + + + + + + + + | Specimen | + + | Blood | + + + + + + + | Performing | Address | City/State/Zipcode | Phone Number | | Organization | | | | + + + + + | [facility] | [address] | [place] [address] | [phone] | + + + + + Hayime INR (09/07/2019 7:26 AM PDT) + + + + + + | Component | Value | Ref Range | Performed | Pathologist | | | | | At | Signature | + + + + + + | INR | 2.2Comment: REFERENCE | | [facility] | | | | RANGE:0.9 - [...] at [facility];[address] | | | | | | [address];[place] | | | | | | [address] | | | | + + + + + + + + | Specimen | + + | Blood | + + + + + + + | Performing | Address | City/State/Zipcode | Phone Number | | Organization | | | | + + + + + | [facility] | [address] | [place] [address] | [phone] | + + + + + Comprehensive [...] at [facility];[address] | | | | | | [address];[place] | | | | | | [address] | | | | + + + + + + + + | Specimen | + + | Blood | + + + + + + + | Performing | Address | City/State/Zipcode | Phone Number | | Organization | | | | + + + + + | [facility] | [address] [facility] | [place] [address] | [phone] | + + + + + CBC [...] | LABORATORY | | | | [address];[place], [place] | | | | | | [address] | | | | + + + + + + + + | Specimen | + + | Blood | + + + + + + + | Performing | Address | City/State/Zipcode | Phone Number | | Organization | | | | + + + + + | [facility] | [address] | [place] [address] | [phone] | + + + + + B [...] KR | | | | performed at [facility];[address] | | LABORATORY | | | | [address];[place], [place] | | | | | | [address] | | | | + + + + + + + + | Specimen | + + | Blood | + + + + + + + | Performing | Address | City/State/Zipcode | Phone Number | | Organization | | | | + + + + + | [facility] | [address] | [place] [address] | [phone] | + + + + + XR [...] Procedure Note | + + | Richard, [id number] - 09/07/2019 7:19 AM PDT | | [...] (500), | | | | | | purchasing expeditor SANTHOSH VÁSQUEZ | | | | | | ([id number]) on 09/07/2019 | | | | | [...]
--- OUTSIDE RECORDS SUMMARY | ~2019-10-12 | XMS | Encounter Summary ---
Demographics + + + | Address | [address] | | | [place] [address] | + + + | Home Phone [...] | Sammi Kohler | ECON | [place] [address] | | + + + + + Care Team Providers + +------+ + | Care Radio Artist Name | Role | Phone | + +------+ + | Mireya Pack NP | PCP | | + +------+ + Encounter Details +--------+ + + + + | Date | Type | Department | Care Team | Description | +--------+ + + + + | 05/29/ | Skilled | [facility] | Mireya Pack, | Type 2 diabetes | | 2020 | Nursing | [facility] [address] | PHYSICIST [facility] [address] | mellitus with | | | Facility | [address] | [address] [place], | hyperglycemia, with | | | | [place], [place] | [place] [address] | long-term current | | | | [address] | [phone] | use of insulin (HCC) | | | | [phone] | | (Primary Dx); | | | | | | Essential | | | | | | hypertension; | | | | | | Traumatic hematoma | | | | | | of right knee, | | | | | | subsequent | | | | | | encounter; | | | | | | Dizziness; Excessive | | | | | | cerumen in both ear | | | | | | canals; Abnormality | | | | | | of gait due to | | | | | | impairment of | | | | | | balance | +--------+ + + + + Social [...] + + + | Blood Pressure | 145/78 | 05/30/2019 8:13 AM | | | | | PDT | | + + + + + | Pulse | 77 | 05/30/2019 8:13 AM | | | | | PDT | | + + + + + | Temperature | 37 C (98.6 F) | 05/30/2019 8:13 AM | | | | | PDT | | + + + + + | Respiratory Rate | 18 | 05/30/2019 8:13 AM | | | | | PDT | | + + + + + | Oxygen Saturation | 95% | 05/30/2019 8:13 AM | | | | | PDT | | + + + + + | Inhaled Oxygen | - | - | | | Concentration | | | | + + + + + | Weight | 101.4 kg (223 lb 9.6 | 05/30/2019 8:13 AM | | | | oz) | PDT | | + + + + + | Height | - | - | | + + + + + | Body Mass Index | 36.09 | 05/22/2019 7:08 AM | | | | | PDT [...] + + documented as of this encounter Patient Instructions Patient Instructions Mireya Pack NP - 05/30/2019 8:00 AM PDTInsulin instructions: Increase your humalog: - insulin lispro (HUMALOG KWIKPEN) 100 units/mL injection (pen); Inject 20 Units under the skin 3 times daily (with meals). - insulin detemir (LEVEMIR FLEXTOUCH) 100 units/mL injection (pen); Inject 45 Units und er the skin nightly. For Blood pressure - hydrALAZINE (APRESOLINE) 25 mg tablet; Take 1 tablet by mouth 2 times daily (this tito l be in your bubble pack). And may take additional 25mg by mouth twice daily as needed for B P > 160/90 Please call [facility] [phone] if any medical needs and we can perform virtual appo intments in next few months to avoid you returning to the Emergency department; we hope to m anage your symptoms at home so you don't need to have so many medical bills and exposure to other bugs in community documented in this encounter Progress Notes Mireya Pack NP - 05/30/2019 8:00 AM PDTFormatting of this note might be different fr om the original. Subjective: Patient ID: Kevyn Guzman is a 63 y.o. male Resident of [facility] with a qualifying stay at [facility] from to 05-17-2019, presented with fall. Admitted for fall from ground level. Patient t o continue on Eliquis, unless hematoma expands. He is to continue on Coreg and Apixiban for a-fib. Discharged to SNF for PT/OT, medication management and shelter. 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 Obesity, Class I, BMI 30-34.9 07/08/2013 WARD (obstructive sleep apnea) 08/11/2012 does not use CPAP because of the noise Other chronic pain Renal failure Stroke (HCC) TIA (transient ischemic attack) Unspecified visual disturbance reading glasses Past Surgical History: Procedure Laterality Date ABDOMEN SURGERY CHOLECYSTECTOMY CHOLECYSTECTOMY, LAPAROSCOPIC 09/12/2012 Procedure: LAPAROSCOPIC - CHOLECYSTECTOMY; Surgeon: Jevon Vargas DO; Location: [facility] MAIN OR; Service: General; Laterality: N/A; COLONOSCOPY COLONOSCOPY 03/04/2013 Procedure: COLONOSCOPY; Surgeon: Howie Gibson MD; Location: [facility] ENDOSCOPY; Service: Gastroen terology; Laterality: N/A; HERNIA REPAIR 07/03/2013 Procedure: LAPAROSCOPIC - HERNIA - INCISIONAL; Surgeon: Jevon Vargas DO; Location: [facility] MAIN OR; Service: General; Laterality: N/A; KNEE SURGERY rt knee, patella LEG SURGERY LLE OTHER SURGICAL HISTORY UNLISTED PROCEDURE ARTHROSCOPY OTHER SURGICAL HISTORY Left 05/05/2014 SKIN LESION EXCISION - Procedure: EXCISION - LESION - FROZEN SECTION; Surgeon: Sy murcia MD; Location: [facility] MAIN OR; Service: Plastics; Laterality: Left; forearm SKIN BIOPSY SKIN CANCER EXCISION Left 10/10/2012 Procedure: EXCISION - SKIN CANCER; Surgeon: Sy Fierro MD; Location: [facility] MAIN OR; Service: Plastics; Laterality: Left; upper arm and upper back w/frozen section UPPER GASTROINTESTINAL ENDOSCOPY UPPER GASTROINTESTINAL ENDOSCOPY 03/03/2013 Procedure: ESOPHAGOGASTRODUODENOSCOPY; Surgeon: Howie Gibson MD; Location: [facility] ENDOSCOPY; Se rvice: Gastroenterology; Laterality: N/A; [...] Lives alone x 1 wk, moved from [facility], , 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 2 [...] 1 tablet by mouth 2 times daily. And may dominique e additional 25mg by mouth twice daily as needed for BP > 160/90 60 tablet 4 HYDROcodone-acetaminophen (NORCO) 5-325 mg per tablet Take 1-2 tablets by mouth every 4 hours as needed. 90 tablet 0 insulin detemir (LEVEMIR FLEXTOUCH) [...] taking: Reported on 05/20/2019) 30 capsule 4 tamsulosin (FLOMAX) 0.4 mg CAPS Take 1 capsule by mouth 2 times daily. 60 capsule 4 No current facility-administered medications for this visit. CODE: CPR, limited additional interventions, use antibiotics if life can be prolonged and l enrico term artificial nutrition by tube. HPI Patient reports that he is ready for discharge home, bs has been 110-200 bp has been wnl Patient would like ears examined Patient's medications, allergies, past medical, surgical, social [...] and Memory: Memory is not impaired. BP 145/78 | Pulse 77 | Temp 37 C (98.6 F) | Resp 18 | Wt 101.4 kg (223 lb 9.6 oz) | SpO2 95% | BMI 36.09 kg/m Chemistry Component Value Date/Time NA 139 [...] PLT 207 05/18/2019 No results found for: [id number] No results found for: FOLATE No results [...] found for: CHOLHDL No components found for: [id number], PTHINT No results found for: DIGOXIN No results found for: URICACID Assessment/Plan: Diagnoses and all orders for this visit: Type 2 diabetes mellitus with hyperglycemia, with long-term current use of insulin ([facility]) Reviewed diabetic plan of care for discharge, glycemic goals and increase insulin: - insulin lispro (HUMALOG KWIKPEN) 100 units/mL injection (pen); Inject 20 Units under the skin 3 times daily (with meals). - insulin detemir (LEVEMIR FLEXTOUCH) 100 units/mL injection (pen); Inject 45 Units und er the skin nightly. Essential hypertension Continue current antihypertensive and may take additional prn - hydrALAZINE (APRESOLINE) 25 mg tablet; Take 1 tablet by mouth 2 times daily. And may take additional 25mg by mouth twice daily as needed for BP > 160/90 Traumatic hematoma of right knee, subsequent encounter Improved, continue brace as needed for pain/support, Appropriate for discharge home, Initiate HH PT/OT for continue strengthening, pain management and improve mobility F/u ortho is planned Dizziness Excessive cerumen in both ear canals Disimpacted cerumen with instrumentation bilateral ears on exam Improved hearing, discussed home management Continue prn meclizine for intermittent vertigo Abnormality of gait due to impairment of balance Discharge took more than 30 minutes to perform final examination, counseling and/or coordin ation of care regarding rehabilitation events/progress, discharge plan, acute and chronic di sease management, instructions for on-going care and follow-up recommendations as documente d above, as well as preparation of discharge medication list and prescriptions and discharge paperwork. Myriam Mcconnell Pr dical Nuclear Spectroscopist - 05/30/2019 8:00 AM PDTPatient successfully contacted, he states that he c annot do a virtual visit once I explained what a virtual visit consist of, but states that h e can do a telephonic visit, would that be okay ? Myriam Mcconnell Medical Assistant - 05/30/2019 8:00 AM PDTAttempted to call patient x2 and emergency contact, Sammi. Awaiting call back. docum ented in this encounter Plan of Treatment +--------+ + + + + | Date | Type | Specialty | Care Team | Description | +--------+ + + + + | 10/16/ | Anti-coag | Anticoagulation | Brittany Zaragoza | | | 2019 | visit | | [address] | | | | | | [place], | | | | | | [place] [address] | | | | | | [phone] | | | | | | | | +--------+ + + + + documented as of this encounter Visit Diagnoses + + | Diagnosis | + + | Type 2 diabetes mellitus with hyperglycemia, with long-term current use of insulin | | (HCC) - Primary | + + | Essential hypertension Unspecified essential hypertension | + + | Traumatic hematoma of right knee, subsequent encounter | + + | Dizziness Dizziness and giddiness | + + | Excessive cerumen in both ear canals | + + | Abnormality of gait due to impairment of balance | + + documented in this encounter"
--- OUTSIDE RECORDS SUMMARY | ~2019-10-12 | XMS | Encounter Summary ---
Demographics + + + | Address | [address] | | | [place] [address] | + + + | Home Phone | | + + + | Preferred Language | Unknown | + + + | Marital Status | | + + + | Amish Affiliation | 1027 | + + + | Race | White | + + + | Ethnic Group | Not or | + + + Author + + + | Author | [facility] | | | and [place] | + + + | Organization | [facility] | | | and [place] | + + + | Address | Unknown | + + + | Phone | Unavailable | + + + Support + + + + + | Name | Relationship | Address | Phone | + + + + + | Sammi Kohler | ECON | [place] [address] | | + + + + + Care Team Providers + +------+ + | Care Upfitter Name | Role | Phone | + +------+ + | Mireya Pack NP | PCP | | + +------+ + Reason for Visit + + + | Reason | Comments | + + + | Follow-up | leg pain | + + + Encounter Details +--------+---------+ + + + | Date | Type | Department | Care Team | Description | +--------+---------+ + + + | 10/01/ | Office | [facility] | Mireya Pack, | Type 2 diabetes | | 2020 | Visit | [facility] [address] | CREDIT ASSISTANT [address] | mellitus with | | | | [address] | [address] [place], | hyperglycemia, with | | | | [place], [place] | [place] [address] | long-term current | | | | [address] | [phone] | use of insulin (HCC) | | | | [phone] | | (Primary Dx); | | | | | | Chronic obstructive | | | | | | pulmonary disease, | | | | | | unspecified COPD | | | | | | type (HCC); Leg | | | | | | weakness, bilateral; | | | | | | Chronic | | | | | | anticoagulation | +--------+---------+ + + + Social History + +-------+ [...] + + + | Blood Pressure | 118/78 | 10/02/2019 1:27 PM | | | | | PDT | | + + + + + | Pulse | 78 | 10/02/2019 1:27 PM | | | | | PDT | | + + + + + | Temperature | 36.7 C (98 F) | 10/02/2019 1:27 PM | | | | | PDT | | + + + + + | Respiratory Rate | 18 | 10/02/2019 1:27 PM | | | | | PDT | | + + + + + | Oxygen Saturation | 97% | 10/02/2019 1:27 PM | | | | | PDT | | + + + + + | Inhaled Oxygen | - | - | | | Concentration | | | | + + + + + | Weight | 100.2 kg (221 lb) | 10/02/2019 1:27 PM | | | | | PDT | | + + + + + | Height | 180.3 cm (5' 11") | 10/02/2019 1:27 PM | | | | | PDT | | + + + + + | Body Mass Index | 30.82 | 10/02/2019 1:27 PM | | | | | PDT [...] Instructions Patient Instructions Mireya Pack NP - 10/02/2019 1:30 PM PDTFinish the antibiotic yo u currently have For diabetes - Try cutting down on snacks and adding more healthy protein (eggs, tuna fish, chicken) to yo ur meals to get better blood sugars For the weakness - continue to move every day, even a few minutes of activity every hour wi ll keep up your muscle strength and help keep blood sugar down Please set up appointment with warfarin clinic documented in this encounter Progress Notes Mireya Pack NP - 10/02/2019 1:30 PM PDTFormatting of this note might be different fr om the original. Subjective: Patient ID: Kevyn Guzman is a 63 y.o. male Patients presents here in clinic to follow up with leg pain last seen on 09/18/2019 and giv en antibiotics. Pt stated he tolerated medication well and is feeling itchy and feels like r ananda is coming back. Would like a mole on neck looked at. Significant history of: Past Medical History: Diagnosis Date Acute pulmonary embolism (HCC) 10/14/2017 Anxiety ARF (acute renal failure) ([facility]) 03/02/2013 Atrial fibrillation (HCC) Basal cell carcinoma 09/26/2012 arm and back COPD (chronic obstructive pulmonary disease) ([facility]) 03/02/2013 hypoxemia on 2 lts nc Depression Development delay Diabetes mellitus type II DVT (deep venous thrombosis) ([facility]) 03/29/2018 Facial droop 07/08/2013 GIB (gastrointestinal bleeding) 03/02/[address] Nur, rectal ulcers, nodule of GE junction Hypercholesterolemia 07/08/2013 Hyperlipidemia 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 Obesity, Class I, BMI 30-34.9 07/08/2013 WARD (obstructive sleep apnea) 08/11/2012 does not use CPAP because of the noise Other chronic pain Renal failure Stroke (HCC) TIA (transient ischemic attack) Unspecified visual disturbance reading glasses Past Surgical History: Procedure Laterality Date ABDOMEN SURGERY CHOLECYSTECTOMY CHOLECYSTECTOMY, LAPAROSCOPIC 09/12/2012 Procedure: LAPAROSCOPIC - CHOLECYSTECTOMY; Surgeon: Jevon Vargas DO; Location: [facility] MAIN OR; Service: General; Laterality: N/A; COLONOSCOPY COLONOSCOPY 03/04/2013 Procedure: COLONOSCOPY; Surgeon: Howie Gibson MD; Location: [facility] ENDOSCOPY; Service: Gastroen terology; Laterality: N/A; HERNIA REPAIR 07/03/2013 Procedure: LAPAROSCOPIC - HERNIA - INCISIONAL; Surgeon: Jevon Vargas DO; Location: [facility] MAIN OR; Service: General; Laterality: N/A; KNEE SURGERY rt knee, patella LEG SURGERY LLE OTHER SURGICAL HISTORY UNLISTED PROCEDURE ARTHROSCOPY OTHER SURGICAL HISTORY Left 05/05/2014 SKIN LESION EXCISION - Procedure: EXCISION - LESION - FROZEN SECTION; Surgeon: Sy murcia MD; Location: [facility] MAIN OR; Service: Plastics; Laterality: Left; forearm SKIN BIOPSY SKIN CANCER EXCISION Left 10/10/2012 Procedure: EXCISION - SKIN CANCER; Surgeon: Sy Fierro MD; Location: [facility] MAIN OR; Service: Plastics; Laterality: Left; upper arm and upper back w/frozen section UPPER GASTROINTESTINAL ENDOSCOPY UPPER GASTROINTESTINAL ENDOSCOPY 03/03/2013 Procedure: ESOPHAGOGASTRODUODENOSCOPY; Surgeon: Howie Gibson MD; Location: [facility] ENDOSCOPY; Se rvice: Gastroenterology; Laterality: N/A; Social [...] alone x 1 wk, moved from [facility], , 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 2 falls in the last 6 months. Family History Problem Relation Age of Onset Heart disease Father Heart disease Sister Diabetes, NIDDM Sister Other (see comment) Brother Heart Problems Allergies: Allergies Allergen Reactions Nitroglycerin Swelling Tongue swelling Vitamin B12 Rash Rash Current Medications: Current Outpatient Medications Medication Sig Dispense Refill albuterol 90 mcg/puff inhaler Inhale 2 puffs into the lungs every 6 hours as needed for Wheezing. 1 Inhaler 0 ARIPiprazole (ABILIFY) 5 mg tablet TAKE ONE TABLET BY MOUTH DAILY 90 tablet 3 atorvaSTATin (LIPITOR) 40 mg tablet Take 1 [...] s 2 times daily. 1 Inhaler 0 docusate-senna (SENOKOT-S) 50-8.6 mg per tablet Take 2 tablets by mouth 2 times daily 6 0 tablet 0 doxycycline (VIBRAMYCIN) 100 mg capsule Take 1 capsule by mouth 2 times daily for 7 day s. 14 capsule 0 Glucose Blood (BLOOD GLUCOSE TEST STRIPS) STRP For blood sugar testing 4 times daily 40 0 each 3 hydrALAZINE (APRESOLINE) 25 mg tablet Take 1 tablet by mouth 2 times daily. 60 tablet 1 1 insulin detemir (LEVEMIR FLEXTOUCH) 100 units/mL injection [...] 11 meclizine (ANTIVERT) 25 mg tablet Take 25 mg by mouth as needed. metoprolol succinate (TOPROL-XL) 50 mg 24 hr tablet TAKE ONE TABLET BY MOUTH TWICE VIVIAN Y 180 tablet 3 NIFEdipine (ADALAT CC) 60 MG 24 hr tablet Take 1 tablet by mouth Daily. psyllium, sugar free, (METAMUCIL FIBER) packet Take 1 packet by mouth Daily. 0 warfarin (COUMADIN) 5 mg tablet Take by mouth Daily 7.5 mg every Mon, Wed, Fri; 5 mg al l other days . warfarin (COUMADIN) 5 mg tablet Take 1 tab po daily or as directed by coumadin clinic b ased on INR. 30 tablet 11 No current facility-administered medications for this visit. HPI Patient reports that he is still taking abx His energy is better but he still has days he feels weak and doesn't want to do anything, h e eats junk food on those days. Last Monday his BS was 428 in morning and he ate junk food a nd it was 129 at night. Patient's medications, allergies, past medical, surgical, social and family histories were obtained and reviewed as appropriate. Review of Systems Constitutional: Negative for activity change, appetite change, chills and fatigue. HENT: Negative for congestion and sore throat. Respiratory: Negative for cough and shortness of breath. Cardiovascular: Negative for leg swelling. Gastrointestinal: Negative for abdominal pain, constipation, diarrhea and nausea. Genitourinary: Positive for frequency and urgency. Neurological: Negative for dizziness, weakness, numbness and headaches. Psychiatric/Behavioral: Positive for sleep disturbance (frequent urination waking him at ni ght). Objective: Physical Exam BP 118/78 | Pulse 78 | Temp 36.7 C (98 F) (Oral) | Resp 18 | Ht 1.803 m (5' 11") | Wt 100.2 kg (221 lb) | SpO2 97% | BMI 30.82 kg/m Lab Results Component Value Date NA 141 09/12/2019 CL 105 09/12/2019 K 3.2 (L) 09/12/2019 CO2 29 09/12/2019 BUN 12 09/12/2019 EGFR >60 09/12/2019 GLUF 292 (H) 09/21/2018 GLOB 2.7 09/21/2018 BILITOT 0.5 09/21/2018 AST 18 09/07/2019 ALT 17 09/07/2019 Lab Results Component Value Date WBC 10.52 09/12/2019 HGB 12.9 (L) 09/12/2019 HCT 39.2 09/12/2019 MCV 81.5 09/12/2019 PLT 259 09/12/2019 Lab Results Component Value Date CHOL 182 [...] CHOLHDL Lab Results Component Value Date HBA1C 10.6 (H) 09/18/2019 No components found for: [id number], PTHINT No results found for: [id number] Lab Results Component Value Date TSH 2.780 03/27/2019 No results found for: IRON, TIBC, FERRITIN . No results found for: FERRITIN Assessment/Plan: Kevyn was seen today for follow-up. Diagnoses and all orders for this visit: Type 2 diabetes mellitus with hyperglycemia, with long-term current use of insulin ([facility]) We discussed [facility] diet and compliance in detail, patient instructed on low glycemic foods We reviewed rationale for improving blood sugar control including Improvement in energy and reduce risk of infection Continue insulin basal and Preprandial discussed, recommend avoid eating between meals - Hemoglobin A1C; Future - Comprehensive Metabolic Panel; Future - CBC with Differential; Future Chronic obstructive pulmonary disease, unspecified COPD type (HCC) - stable, continue current management Leg weakness, bilateral Discussed exercise for endruance, strength and safety considerations. Patient demonstrates adequate muscle strength to ambulate independently recommend short frequent walks to [employer] Chronic anticoagulation Noncompliant with CC visits recommend schedule and discussed rationale for INR monitoring. Offered blood draw today but patient prefers POC testing I spent 40 minutes of time > 50% of which were spent face to face with patient during this visit on counseling and/or coordination of care regarding the problems documented above. documented in this e ncounter Plan of Treatment +--------+ + + + + | Date | Type | Specialty | Care Team | Description | +--------+ + + + + | 10/16/ | Anti-coag | Anticoagulation | Brittany Zaragoza | | | 2019 | visit | | [address] | | | | | | [address] [place], | | | | | | [place] [address] | | | | | | [phone] | | | | | | | | +--------+ + + + + + +------+--------+ + + | Name | Type | Priori | Associated Diagnoses | Order Schedule | | | | ty | | | + +------+--------+ + + | Hemoglobin A1C | Lab | Routin | Type 2 diabetes | Expected: | | | | e | mellitus with | 11/02/2019, Expires: | | | | | hyperglycemia, with | 10/01/2020 | | | | | long-term current | | | | | | use of insulin (HCC) | | + +------+--------+ + + | Comprehensive | Lab | Routin | Type 2 diabetes | Expected: | | Metabolic Panel | | e | mellitus with | 11/02/2019, Expires: | | | | | hyperglycemia, with | 10/01/2020 | | | | | long-term current | | | | | | use of insulin (HCC) | | + +------+--------+ + + | CBC with | Lab | Routin | Type 2 diabetes | Expected: | | Differential | | e | mellitus with | 11/02/2019, Expires: | | | | | hyperglycemia, with | 10/01/2020 | | | | | long-term current | | | | | | use of insulin (HCC) | | + +------+--------+ + + documented as of this encounter Visit Diagnoses + + | Diagnosis | + + | Type 2 diabetes mellitus with hyperglycemia, with long-term current use of insulin | | (HCC) - Primary | + + | Chronic obstructive pulmonary disease, unspecified COPD type (HCC) | + + | Leg weakness, bilateral Other musculoskeletal symptoms referable to limbs | + + | Chronic anticoagulation Encounter for long-term (current) use of 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 | + + documented in this encounter
--- OUTSIDE RECORDS SUMMARY | ~2019-10-12 | XMS | Encounter Summary ---
Demographics + + + | Address | [address] | | | [place] [address] | + + + | Home Phone | | + + + | Preferred Language | Unknown | + + + | Marital Status | | + + + | Zoroastrian Affiliation | 1027 | + + + | Race | White | + + + | Ethnic Group | Not or | + + + Author + + + | Author | [facility] | | | and [place] | + + + | Organization | [facility] | | | and [place] | + + + | Address | Unknown | + + + | Phone | Unavailable | + + + Support + + + + + | Name | Relationship | Address | Phone | + + + + + | Sammi Kohler | ECON | [place] [address] | | + + + + + Care Team Providers + +------+ + | Care System Analyst Name | Role | Phone | + +------+ + | Mireya Pack NP | PCP | | + +------+ + Reason for Visit + + + | Reason | Comments | + + + | Dizziness | | + + + | Headache (Adult - | had a fall last week and hit head and states he was in hospital | | Recurrent Or Known | for a few days | | Dx Migraines) | | + + + | Diarrhea (Adult) | | + + + Encounter Details +--------+ + + + + | Date | Type | Department | Care Team | Description | +--------+ + + + + | 01/10/ | Emergency | [facility] | Reynaldo Prather | Dizziness (Primary | | 2019 | | [facility] | DO [address] | Dx); Hyperglycemia | | | | EMERGENCY CENTER | [address] | | | | | [address] | [place], [place] | | | | | [place], [place] | [address] | | | | | [address] | [phone] | | | | | [phone] | | | +--------+ + + + [...] + + + | Blood Pressure | 195/98 | 01/10/2019 7:31 AM | | | | | PST | | + + + + + | Pulse | 69 | 01/10/2019 7:31 AM | | | | | PST | | + + + + + | Temperature | 36.9 C (98.5 F) | 01/10/2019 5:26 AM | | | | | PST | | + + + + + | Respiratory Rate | 18 | 01/10/2019 5:26 AM | | | | | PST | | + + + + + | Oxygen Saturation | 99% | 01/10/2019 7:31 AM | | | | | PST | | + + + + + | Inhaled Oxygen | - | - | | | Concentration | | | | + + + + + | Weight | 100 kg (220 lb 7.4 | 01/10/2019 5:26 AM | | | | oz) | PST | | + + + + + | Height | 180.3 cm (5' 11") | 01/10/2019 5:26 AM | | | | | PST | | + + + + + | Body Mass Index | 30.75 | 01/10/2019 5:26 AM | | | [...] following attachments cannot be sent through Care Everywhere.Hyperglycemia ( High Blood Sugar) (Faroese)Inner Ear, Anatomy (Faroese)Dizziness or Fainting, Possible Cause s of (Faroese)Dizziness (Vertigo) and Balance Problems: Staying Safe (Faroese)documented in this encounter Medications at Time of [...] meclizine | Take 1 tablet by | 20 | 0 | 01/06/20 | | | (ANTIVERT) 25 mg | mouth every 8 hours | tablet | | 19 | 9 | | tablet | as needed for | | | | | | | Dizziness for up to | | | | | | | 10 days. | | | | [...] documented as of this encounter ED Notes Reynaldo Prather, - 01/10/2019 5:57 AM PSTFormatting of this note might be diff erent from the original. [facility] Department of Emergency Medicine Procedures No flowsheet data found. 6:08 AM History of Present Illness Patient Identification Norah Gr is a 63 y.o. male. Patient information was obtained from patient. History/Exam limitations: none. Patient presented to the Emergency Department by: Car Chief Complaint Chief Complaint Patient presents with Dizziness Headache (Adult - Recurrent Or Known Dx Migraines) had a fall last week and hit head and states he was in hospital for a few days Diarrhea (Adult) The patient presents to ED with complaints of dizziness. Onset of symptoms was earlier this morning, with a constant course since that time. The symptoms are described to be of modera te severity. The patient describes the quality and location of the symptoms as the following : "room spinning". Nothing makes the symptoms/pain better, and movement makes symptoms/pain worse. Pt reports pain/symptoms do not radiate. The patient has a h/o A-fib, DVT on Eliquis, DM II, PE, previous stroke, TIA, COPD, renal failure and others noted below. He was seen in the ED on 01/03 after a fall and head injury, post dizziness and was admitted for workup in cluding CT imaging and MRI. He was discharged from the hospital 5 days ago and was told to radu perez up with ENT. He reports he has a scheduled appointment with his PCP office today at 12 :30 PM but states "I couldn't take all the dizziness, even after the medication." The patie nt last took his Meclozine at 4AM this morning but has had no relief to his symptoms. The cleopatra prabhakar reports he did have his ears drained prior to discharge but has had intermittent heada ches daily since his ED visit. Patient also complains of intermittent headaches, diarrhea (t his morning one episode). Denies fever, chills, chest pain, shortness of breath, or any othe r symptoms at this time. Care prior to arrival consisted of Tylenol (for headaches), Meclozi ne, with no relief. PCP: Mireya Pack NP Past Medical History: Diagnosis Date Acute pulmonary embolism (HCC) 10/14/2017 Anxiety ARF (acute renal failure) ([facility]) 03/02/2013 Atrial fibrillation (HCC) Basal cell carcinoma 09/26/2012 arm and back COPD (chronic obstructive pulmonary disease) ([facility]) 03/02/2013 hypoxemia on 2 lts nc Depression Development delay Diabetes mellitus type II DVT (deep venous thrombosis) ([facility]) 03/29/2018 Facial droop 07/08/2013 GIB (gastrointestinal bleeding) [...] Procedure: COLONOSCOPY; Surgeon: Howie Gibson MD; [facility]; Service: Gastroen terology; Laterality: N/A; HERNIA REPAIR 07/03/2013 Procedure: LAPAROSCOPIC - HERNIA - INCISIONAL; Surgeon: Jevon Vargas DO; Location: [facility]; Service: General; Laterality: N/A; KNEE SURGERY rt knee, patella LEG SURGERY LLE OTHER SURGICAL HISTORY UNLISTED PROCEDURE ARTHROSCOPY OTHER SURGICAL HISTORY Left 05/05/2014 SKIN LESION EXCISION - Procedure: EXCISION - LESION - FROZEN SECTION; Surgeon: Sy murcia MD; Location: [facility]; Service: Plastics; Laterality: Left; forearm SKIN BIOPSY SKIN CANCER EXCISION Left 10/10/2012 Procedure: EXCISION - SKIN CANCER; Surgeon: Sy Fierro MD; Location[facility]; Service: Plastics; Laterality: Left; upper arm and upper back w/frozen section UPPER GASTROINTESTINAL ENDOSCOPY UPPER GASTROINTESTINAL ENDOSCOPY 03/03/2013 Procedure: ESOPHAGOGASTRODUODENOSCOPY; Surgeon: Howie Gibson MD; Location: [facility]; rvice: Gastroenterology; Laterality: N/A; Prior to Admission medications Medication Sig Start Date End Date Taking? Authorizing Provider acetaminophen (TYLENOL) 325 mg tablet Take 2 tablets by mouth every 4 hours as needed for P ain (or fever >= 38.6 C (101.5 F)). 10/16/18 Yes Norah Duron MD apixaban (ELIQUIS) 5 mg tablet Take 1 tablet by mouth 2 times daily. 11/07/18 Yes Mireya malave NP ARIPiprazole (ABILIFY) 5 mg tablet Take 1 tablet by mouth Daily. 11/07/18 Yes Mireya Young do, NP atorvaSTATin (LIPITOR) 40 mg tablet Take 1 tablet by mouth nightly. 12/26/18 Yes Mireya malave NP Blood Glucose Monitoring Suppl (BLOOD GLUCOSE MONITOR SYSTEM) w/Device KIT Dispense brand p er patient preference 11/07/18 Yes Mireya Pack NP budesonide-formoterol (SYMBICORT) 160-4.5 mcg/puff inhaler Inhale 2 puffs into the lungs 2 times daily. 11/01/18 11/01/19 Yes Mireya Pack NP carvedilol (COREG) 12.5 mg tablet Take 1 tablet by mouth 2 times daily (with breakfast & di nner). 11/07/18 Yes Mireya Pack NP finasteride (PROSCAR) 5 mg tablet Take 1 tablet by mouth Daily. 11/07/18 Yes Mireya paredes NP Glucose Blood (BLOOD GLUCOSE TEST STRIPS) STRP For blood sugar testing 4 times daily 9 Yes Mireya Pack NP hydrALAZINE (APRESOLINE) 25 mg tablet Take 1 tablet by mouth 2 times daily. 11/07/18 Yes Triny Pack NP insulin aspart (NOVOLOG FLEXPEN) 100 units/mL injection pen Inject 5 Units under the skin 3 times daily (before meals). Plus sliding scale Yes Historical Provider, insulin detemir (LEVEMIR FLEXTOUCH) 100 units/mL injection (pen) Inject 60 Units under the skin nightly. 12/26/18 Yes Mireya Pack NP Insulin Pen Needle (BD PEN NEEDLE KYAW U/F) 32G X 4 MM MISC For insulin administration 4 ti mes daily 11/07/18 Yes Mireya Pack NP Lancets (ACCU-CHEK MULTICLIX) MISC 1 each by Other route 4 times daily. 11/01/18 Yes Mireya Pack NP lisinopril (PRINIVIL, ZESTRIL) 10 mg tablet Take 2 tablets by mouth Daily. 11/07/18 Yes Rocco Pack NP meclizine (ANTIVERT) 25 mg tablet Take 1 tablet by mouth every 8 hours as needed for Dizzin ess for up to 10 days. 01/05/19 01/15/19 Yes Georgia Riley MD metFORMIN (GLUCOPHAGE) 500 mg tablet Take 1 tablet by mouth 2 times daily (with breakfast & dinner). 11/07/18 Yes Mireya Pack NP NIFEdipine (ADALAT CC) 60 MG 24 hr tablet Take 1 tablet by mouth Daily. 11/07/18 Yes Mireya Pack NP omeprazole (PRILOSEC) 20 mg capsule Take 1 capsule by mouth every morning (before breakfast ). 12/26/18 Yes Mireya Pack NP tamsulosin (FLOMAX) 0.4 mg CAPS Take 1 capsule by mouth 2 times daily. 11/07/18 Yes Mireya Pack NP Allergies Allergen Reactions Nitroglycerin Swelling [...] file Gets together: Not on file Attends temple service: Not on file Active member of [...] Problems Review of Systems Constitutional: Negative for fever Eyes: Negative for vision changes Nose: Negative for congestion Throat: Negative for sore throat CV/Resp: Negative for chest pain, [id number]-[id number], cough GI: Negative for abdominal pain, nausea, vomiting Positive for diarrhea : Negative for urinary problems Musculoskeletal: Negative for joint pain Skin: Negative for rash Neuro/Psych: Positive for headache, dizziness Endo/heme/Lymph: Negative for easy bruising All other systems reviewed and negative except as noted. Physical Exam Temp: 36.9 C (98.5 F) Pulse: 71 Resp: 18 BP: 154/85 SpO2: 98 % Vital signs interpretation: Hypertensive, otherwise WNL Pulse Oximetry interpretation: Normal General: Alert, in no apparent distress Eyes: Normal inspection, no nystagmus, EOMI, Perrl ENT: MMM, moderate cerumen bilaterally Neck: Normal inspection Cardiovascular: Rate and rhythm normal Respiratory: Breath sounds normal bilaterally Abdomen: Soft, non-tender, non-distended No guarding or rebound Genitourinary: Deferred Rectal exam: Deferred Back: Normal inspection Extremities: No edema Distal pulses intact Skin: Color normal Warm and dry No rash Neuro: Alert and Oriented x 3 Speech is clear and appropriate No aphasia or dysarthria No facial droop PERRLA, EOMI, no nystagmus CN II-XII intact Motor strength 5/5 upper and lower extremities No pronator drift No lower extremity drift No sensory deficits Intact finger to nose and heel to carmichael Medical Decision Making and Emergency Department Course Patient presents to ED with complaints of dizziness, intermittent headaches and diarrhea. M y DDx includes, but is not limited to: peripheral vertigo, electrolyte abnormality, vs other . The patient was seen in the ED 1 week ago for same and had full workup, which was negative for acute central findings. He has follow up today with PCP. Will repeat labs, EKG, and anant at symptomatically. 6:50 AM CBC is unremarkable. CMP shows elevated blood glucose at 247, but is otherwise norm al. Troponin is normal at 0.018. 7:35 AM. Patient reevaluation. Patient is stable and feeling better at this time. Advised outpatient follow-up with audiology. Recommended [id number] Debrox for cerumen impact ion. I discussed all ED results and my clinical impression with the patient. Patient is quang dy for discharge. I advised patient to follow up with a PCP and we discussed the emergent si gns and symptoms that would necessitate a return to ED. All questions and concerns addressed . ED Medication Administration from 01/10/2019 0518 to 01/10/2019 1228 Date/Time Order Dose Route Action Action by 01/10/2019 0701 sodium chloride 0.9% (NS) bolus 500 mL 0 mL Intravenous Stopped Gamal Alonso RN 01/10/2019 0631 sodium chloride 0.9% (NS) bolus 500 mL 500 mL Intravenous New Bag Leanna Cheng, EVE Records Reviewed Old medical records. Nursing notes. Previous ED visits for similar and unrelated complaints Laboratory Evaluation Results Procedure Component Value Ref Range Date/Time Comprehensive Metabolic Panel [[id number]] (Abnormal) Collected: 01/10/19 0614 Order Status: Completed Specimen: Blood Updated: 01/10/19 0651 Na 143 135 - 145 mmol/L K 3.9 3.5 - 4.9 mmol/L Cl 108 99 - 109 mmol/L CO2 27 23 - 32 mmol/L Anion Gap 12 5 - 20 mmol/L Glucose 247 65 - 99 mg/dL BUN 17 8 - 25 mg/dL Creatinine 0.88 0.70 - 1.30 mg/dL BUN/Creatinine Ratio 19 Calcium 8.9 8.5 - 10.5 mg/dL Protein, Total 6.3 6.3 - 8.2 g/dL Albumin 3.7 3.3 - 4.8 g/dL Globulin 2.6 1.3 - 4.9 g/dL A/G Ratio 1.4 1.0 - 2.4 BILIRUBIN, TOTAL 0.6 0.1 - 1.5 mg/dL ALK PHOS 123 35 - 115 U/L AST 22 10 - 45 U/L ALT 17 10 - 65 U/L Estimated GFR >60 >60 mL/min/1.73m2 Troponin I [[id number]] Collected: 01/10/19613 Order Status: Completed Specimen: Blood Updated: 01/10/19650 Troponin I 0.018 0.00 - 0.04 ng/mL CBC with Differential [[id number]] (Abnormal) Collected: 01/10/19613 Order Status: Completed Specimen: Blood Updated: 01/10/19624 WBC 8.43 3.80 - 11.00 K/uL RBC 4.84 4.20 - 5.70 M/uL Hemoglobin 14.3 13.2 - 17.0 g/dL Hematocrit 40.2 39.0 - 50.0 % MCV 83.1 80.0 - 100.0 fl MCH 29.4 27.0 - 34.0 pg MCHC 35.4 32.0 - 35.5 g/dL RDW-SD 42.4 37 - 53 fl Platelet Count 221 150 - 400 K/uL MPV 7.3 fl Diff Type AUTOMATED % Neutrophils 46.43 % % Lymphocytes 36.12 % Monocyte % 11.69 % Eosinophils % 5.03 % Basophils % 0.73 % Neutrophils, Absolute 3.92 1.90 - 7.40 K/uL Absolute Lymphocytes 3.05 1.00 - 3.90 K/uL Absolute Monocytes 0.99 0.00 - 0.80 K/uL Eosinophils, Absolute 0.42 0.00 - 0.50 K/uL Basophils, Absolute 0.06 0.00 - 0.10 K/uL I personally reviewed the lab results and they have been posted to the chart. Pertinent po sitive and negative findings have been addressed appropriately. Radiology and EKG Evaluation Imaging Results None EKG @ 0608 Normal sinus rhythm with a rate of 69 bpm Overall somewhat poor quality in the precordial leads No ST changes concerning for acute ischemia Normal QRS, intervals, and QTc Interpreted by Reynaldo Prather DO at time of service. ED Diagnosis Final diagnoses: Dizziness Hyperglycemia Disposition: ED Disposition ED Disposition Condition Comment Discharge Stable Follow-up Information Go to Mireya Pack NP. Specialty: Nurse Practitioner - Primary Care Why: your appointment today Contact information: [address] [place] [facility] [id number] Go to Pepe Bain MD. Specialty: Otolaryngology Why: for follow up Contact information: [address] [place] [facility] [address] Go to [facility]. Specialty: Otolaryngology Why: for follow up as needed Contact information: [address] [facility] [id number] Discharge Medications: Discharge Medication List as of 01/10/2019 7:44 AM Dictation software, [employer], used which may contain error for similar sounding words even af ter review. Personal communication requested for any clarification. Attending Provider Note: I, Reynaldo Prather,* personally performed the services caryl cribed in this documentation, as scribed by Ariel Marrero in my presence, and it is both acc urate and complete. Chart Reviewed and Completed. Scribe: Kari Jasmine, scribing for and in the presence of Reynaldo Prather ,*. Completed by: Kari Bailey 01/10/2019 12:28 PM Reynaldo Prather DO 01/11/19 1641 Dave Augustin RN - 01/10/2019 5:38 AM PSTPt states he had an episode of vertigo on Thanksgiving and stood up and fell down. He hit his head and came to the ED for the dizziness and head injur y. Pt was admitted, he had his head scanned and nothing abnormal was noted. Pt was told he h ad a really bad concussion. Pt stating he was discharged and given Meclizine PO. Pt states bran bonilla has been taking the pills as directed and they are helping somewhat, but not enough. Pt kelley s not fallen again, but states the dizziness is not going away, pt stating, "I just want you to get this dizziness to stop." Pt able to transfer from a wheelchair to the bed. Pt given a pillow, lights dimmed. documented in this encounter Plan of Treatment +--------+ + + + + | Date | Type | Specialty | Care Team | Description | +--------+ + + + + | 10/16/ | Anti-coag | Anticoagulation | Brittany Zaragoza | | | 2019 | visit | | [address] | | | | | | [address], | | | | | | [place] [address] | | | | | | [phone] | | | | | | | | +--------+ + + + + + +------+--------+ + + | Name | Type | Priori | Associated Diagnoses | Date/Time | | | | ty | | | + +------+--------+ + + | ED INFORMATION | COLTON | Routin | | 01/10/2019 5:19 AM | | EXCHANGE | | e | | PST | + +------+--------+ + + documented as of this encounter Procedures + +--------+ + + + | Procedure Name | Priori | Date/Time | Associated Diagnosis | Comments | | | ty | | | | + +--------+ + + + | TROPONIN I | STAT | 01/10/2019 | | Results for this | | | | 6:14 AM | | procedure are in the | | | | PST | | results section. | + +--------+ + + + | CBC WITH | STAT | 01/10/2019 | | Results for this | | DIFFERENTIAL | | 6:14 AM | | procedure are in the | | | | PST | | results section. | + +--------+ + + + | COMPREHENSIVE | STAT | 01/10/2019 | | Results for this | | METABOLIC PANEL | | 6:14 AM | | procedure are in the | | | | PST | | results section. | + +--------+ + + + | ECG 12 LEAD | STAT | 01/10/2019 | | Results for this | | | | 6:08 AM | | procedure are in the | | | | PST | | results section. | + +--------+ + + + | ED INFORMATION | Routin | 01/10/2019 | | | | EXCHANGE | e | 5:19 AM | | | | | | PST | | | + +--------+ + + + +---+--------+ | | | | | Proced | | | ure | | | Note - | | | Richard, | | | Lab In | | | | | | Hlseve | | | n - | | | | | | 2018 | | | 5:20 | | | AM PST | | [...] | | | ON?12/ | | | | | | 9 | | | 05:18? | | | GR, | | | NORAH | | | | | | M?MRN: | | | | | | [id number] | | | [id number] | | | riteri | | | a Met | | | | | | Medica | | | id 5 | | | in 12 | | | 2 in | | | 2 10 | | | in 12 | | | Care | | [...] | | | Guidel | | | andrie | | | from | | | [...] | | 11 0 | | | [place] | | [...] | | int | | | Dec 5, | | | 2019 | | | [facility] | | | | | | [place] | | | al | | | [facility] | | | [place] | | | [place] | | | [place] | | | ncy | | | Dec 4, | | [...] | | | ension | | | Oct | | | 26, | | [...] ension | | | | | | Recent [...] | | s [facility] | | | [place] | | | [place] | | | [...] | | | /notif | | | [id number] | | | [id number] | | | [id number] | | | [id number] | | | [id number] | | | [id number] | | | d7 | | | PLEASE | | | [...] documented in this encounter Results Troponin I (01/10/2019 6:14 AM PST) + + + + + + | Component | Value | Ref Range | Performed | Pathologist | | | | | At | Signature | + + + + + + | Troponin I | 0.018Comment: 0.04 | 0.00 - 0.04 | [facility] | | | | ng/mL or [...] at | | | | | | [facility];[address];[place] [address] | | | | + + + + + + + + | Specimen | + + | Blood | + + + + + + + | Performing | Address | City/State/Zipcode | Phone Number | | Organization | | | | + + + + + | [facility] | [address] | [place] [address] | [phone] | + + + + + Comprehensive Metabolic Panel (01/10/2019 6:14 AM PST) + + + + + + | Component | Value | Ref Range | Performed | Pathologist | | | | | At | Signature | + + + + + + | Na | 143 | 135 - 145 | [facility] | [...] + + + + | Glucose | 247 (H) | 65 - 99 mg/dL | [facility] | | | | | | LABORATORY | | + + + + + + | BUN | 17 | 8 - 25 mg/dL | [facility] | | | | | | LABORATORY | | + + + + + + | Creatinine | 0.88 | 0.70 - 1.30 | [facility] | [...] + + + + | Albumin | 3.7 | 3.3 - 4.8 g/dL | [facility] | | | | | | LABORATORY | | + + + + + + | Globulin | 2.6 | 1.3 - 4.9 g/dL | [facility] [...] + + + | ALK PHOS | 123 (H) | 35 - 115 U/L | [...] | | | | | performed at [facility] | | | | | | [address] [facility];[place], [place] | | | | | | [address] | | | | + + + + + + + + | Specimen | + + | Blood | + + + + + + + | Performing | Address | City/State/Zipcode | Phone Number | | Organization | | | | + + + + + | [facility] | [address] | [place] [address] | [phone] | + + + + + CBC with Differential (01/10/2019 6:14 AM PST) + + + + + + | Component | Value | Ref Range | Performed | Pathologist | | | | | At | Signature | + + + + + + | WBC | 8.43 | 3.80 - 11.00 | [facility] | | | | | K/uL | LABORATORY | | + + + + + + | Red Blood | 4.84 | 4.20 - 5.70 | [facility] | | | Cells | | M/uL | LABORATORY | | + + + + + + | Hemoglobin | 14.3 | 13.2 - 17.0 | [facility] | | | | | g/dL | LABORATORY | | + + + + + + | Hematocrit | 40.2 | 39.0 - 50.0 % | [facility] | | | | | | LABORATORY | | + + + + + + | MCV | 83.1 | 80.0 - 100.0 fl | [facility] | | | | | | LABORATORY | | + + + + + + | MCH | 29.4 | 27.0 - 34.0 pg | [facility] | | | | | | LABORATORY | | + + + + + + | MCHC | 35.4 | 32.0 - 35.5 | [facility] | | | | | g/dL | LABORATORY | | + + + + + + | RDW-SD | 42.4 | 37 - 53 fl | [facility] | | | | | | LABORATORY | | + + + + + + | Platelet | 221 | 150 - 400 K/uL | [facility] | | | Count | | | LABORATORY | | + + + + + + | MPV | 7.3 | fl | [facility] | | | | | | LABORATORY | | + + + + + + | Diff Type | AUTOMATED | | [facility] | | | | | | LABORATORY | | + + + + + + | % | 46.43 | % | [facility] | | | Neutrophils | | | LABORATORY | | + + + + + + | % | 36.12 | % | [facility] | | | Lymphocytes | | | LABORATORY | | + + + + + + | Monocyte % | 11.69 | % | [facility] | | | | | | LABORATORY | | + + + + + + | Eosinophils | 5.03 | % | [facility] | | | % | | | LABORATORY | | + + + + + + | Basophils % | 0.73 | % | [facility] | | | | | | LABORATORY | | + + + + + + | Neutrophils | 3.92 | 1.90 - 7.40 | [facility] | | | , Absolute | | K/uL | LABORATORY | | + + + + + + | Absolute | 3.05 | 1.00 - 3.90 | [facility] | | | Lymphocytes | | K/uL | LABORATORY | | + + + + + + | Absolute | 0.99 (H) | 0.00 - 0.80 | [facility] | | | Monocytes | | K/uL | LABORATORY | | + + + + + + | Eosinophils | 0.42 | 0.00 - 0.50 | [facility] | | | , Absolute | | K/uL | LABORATORY | | + + + + + + | Basophils, | 0.06Comment: Testing | 0.00 - 0.10 | [facility] | | | Absolute | performed at [facility];[address] | K/uL | LABORATORY | | | | [address];[place], [place] | | | | | | [address] | | | | + + + + + + + + | Specimen | + + | Blood | + + + + + + + | Performing | Address | City/State/Zipcode | Phone Number | | Organization | | | | + + + + + | [facility] | [address] | [place] [address] | [phone] | + + + + + ECG 12 lead (01/10/2019 6:08 AM PST) + + + + + + | Component | Value | Ref Range | Performed | Pathologist | | | | | At | Signature | + + + + + + | VENTRICULAR | 69 | BPM | [facility] | | | RATE EKG | | | | | + + + + + + | ATRIAL RATE | 69 | BPM | [facility] | | [...] + + + + | Q-T | 462 | ms | [facility] | | | INTERVAL | | | | | + + + + + + | Q-T | 495 | ms | [facility] | | | INTERVAL | | | | | | (CORRECTED) | | | | | + + + + + + | P WAVE AXIS | 27 | degrees | [facility] | | + + + + + + | QRS AXIS | 51 | degrees | [facility] | | + + + + + + | T AXIS | 68 | degrees | [facility] | | + + + + + + | INTERPRETAT | Sinus rhythm with | | [facility] | | | ION TEXT | Premature atrial | | | | | | complexesMinimal voltage | | | | | | criteria for LVH, may | | | | | | be normal | | | | | | variantProlonged | | | | | | QTAbnormal ECGWhen | | | | | | compared with ECG of | | | | | | 28-NOV-2019 | | | | | | 20:07,Premature atrial | | | | | | complexes are now | | | | | | PresentST no longer | | | | | | depressed in Anterior | | | | | | leadsT wave inversion no | | | | | | longer evident in | | | | | | Inferior leadsT wave | | | | | | inversion no longer | | | | | | evident in Anterior | | | | | | leadsConfirmed by MUSE | | | | | | READ ONLY, -COMPUTER | | | | | | ([phone]), movie editor Rodney, | | | | | | Roberto Sánchez ([id number]) on | | | | | | 01/11/2019 4:44:16 AM | | | | + + [...] | Diagnosis | + + | Dizziness - Primary Dizziness and giddiness | + + | Hyperglycemia Other abnormal glucose | + + documented in this encounter Administered Medications + +---------+ +---------+-------+------+ | Medication Order | MAR | Action | Dose | Rate | Site | | | Action | Date | | | | + +---------+ +---------+-------+------+ | sodium chloride 0.9% (NS) bolus | New Bag | 01/11/20 | 500 mLs | 1000 | | | 500 mL 500 mL, Intravenous, | | 19 6:31 | | mL/hr | | | Administer over 30 Minutes, ONCE, | | AM PST | | | | | Joselyn 01/10/19 at 0620, For 1 dose | | | | | | + +---------+ +---------+-------+------+ +---+---+ | | | +---+---+ documented in this encounter
--- OUTSIDE RECORDS SUMMARY | ~2019-10-12 | XMS | Encounter Summary ---
Demographics + + + | Address | [address] [facility] [address] | | | [place] [address] | + + + | Home Phone [...] + | Sammi Kohler | ECON | [place] [address] | | + + + + + Care Team Providers + +------+ + | Care Chocolate Coater Name | Role | Phone | + +------+ + PCP | Unavailable | + +------+ + Encounter Details +--------+ + + + + | Date | Type | Department | Care Team | Description | +--------+ + + + + | 08/31/ | Emergency | [facility] | Zach Tena, | Chest pain, | | 2015 | | [facility] | MD [address] | unspecified chest | | | | EMERGENCY CENTER | [place] [address] | pain type | | | | [address] | [phone] | | | | | [place], [place] | | | | | | [address] | | | | | | [phone] | | | +--------+ + + + [...] documented as of this encounter ED Notes Zach Tena MD - 08/31/2014 6:27 AM PDTFormatting of this note might be different fro m the original. ED Provider Notes by Zach Tena MD at 08/31/14626 Author: Zach Tena MD Service: (none) Author Type: Physician Filed: 09/07/14618 Date of Service: 08/31/14626 Status: Signed Protector Plate Attacher: Zach Tena MD (Physician) [facility] Department of Emergency Medicine 6:27 AM History of Present Illness Patient Identification Norah Gr is a 58 y.o. male. Patient information was obtained from patient. History/Exam limitations: none. Patient presented to the Emergency Department by: [facility] 1723 Chief Complaint Chief Complaint Patient presents with Chest Pain This is a 58 y.o. male who arrived via EMS with chief complaint of CP. Other associated com plaints include SOB and nausea. Onset of symptoms was 5:45 am this morning , with a constant course since that time. The symptoms are currently described to be of moderate severity. T he patient states the CP woke him up from sleep. He reports that he does not use any AC in h is apartment (but the temperature was not very high). The patient also reports that he did n ot eat breakfast this morning. The patient did not specify if anything improved or worsened the symptoms. Care prior to arrival consisted of 324 mg ASA by EMS, with minimal relief. 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 Past Surgical History Procedure Laterality Date Unlisted procedure arthroscopy Knee surgery rt knee, patella Leg surgery LLE Colonoscopy Cholecystectomy, laparoscopic 09/12/2012 Procedure: LAPAROSCOPIC - CHOLECYSTECTOMY; Surgeon: Jevon Vargas DO; Location: [facility] OR; Service: General; Laterality: N/A; Abdominal surgery Cholecystectomy Skin cancer excision 10/10/2012 Procedure: EXCISION - SKIN CANCER; Surgeon: Sy Fierro MD; Location: [facility] ; Service: Plastics; Laterality: Left; upper arm and upper back w/frozen section Esophagogastroduodenoscopy 03/03/2013 Procedure: ESOPHAGOGASTRODUODENOSCOPY; Surgeon: Howie Gibson MD; Location: [facility]; S ervice: Gastroenterology; Laterality: N/A; Colonoscopy 03/04/2013 Procedure: COLONOSCOPY; Surgeon: Howie Gibson MD; Location: [facility]; Service: Gastroe nterology; Laterality: N/A; Upper gastrointestinal endoscopy Skin biopsy Hernia repair 07/03/2013 Procedure: LAPAROSCOPIC - HERNIA - INCISIONAL; Surgeon: Jevon Vargas DO; Location: [facility]; Service: General; Laterality: N/A; Skin lesion excision Left 05/05/2014 Procedure: EXCISION - LESION - FROZEN SECTION; Surgeon: Sy Fierro MD; Location: [facility]; Service: Plastics; Laterality: Left; forearm Prior to Admission medications Medication Sig Start Date End Date Taking? Authorizing Provider Albuterol Sulfate (VENTOLIN HFA IN) Inhale 2 puffs into the lungs as needed. 108 mcg/act Historical Provider Bvsts-N-Nfgqipxdgadxh (BEANO) TABS Take 150 Units by mouth [...] 100 mg by mouth nightly. Historical Provider njdlvjgxy-uvebuypr-gmbrngnzb hydroxide-simethicone Take 40 mLs by mouth daily [...] tablet Take 1 tablet by mouth daily. Patient taking differently: Take by mouth daily. 2.5 mg on Joselyn; 5 mg all other days 5 CITLALY Leonard Allergies Allergen Reactions Vitamin B12 Rash History Social History Marital Status: Spouse Name: N/A Number of Children: 1 Years of Education: [employer] Occupational History disabled Social History Main Topics Smoking status: Never Smoker Smokeless tobacco: Never Used Alcohol Use: 0.0 oz/week 1-2 Cans of beer per week Comment: once week, occasionally Drug Use: No Sexual Activity: Not Currently Other Topics Concern Not on file Social History Narrative Lives alone x 1 wk, moved from 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 2 falls in the last 6 months. Family History Problem Relation Age of Onset Heart disease Father Heart disease Sister Diabetes type II Sister Heart Problems Brother Review of Systems Review of Systems Constitutional: Negative for diaphoresis. Positive for decreased appetite Respiratory: Positive for shortness of breath. Cardiovascular: Positive for chest pain. Gastrointestinal: Positive for nausea. All other systems reviewed and are negative. Physical Exam BP 150/71 | Pulse 77 | Temp(Src) 98 F (36.7 C) (Skin) | Resp 22 | Wt 110.224 kg (243 lb ) | SpO2 98% Vitals: Hypertensive, tachypneic, otherwise WNL Pulse Oximetry Interpretation: Normal General: Alert, in no acute distress, non-toxic Head: Normocephalic. Atraumatic. Eyes: Normal inspection, pupils equal and round, non-icteric, EOM full ENT: Ears and nose normal external inspection Pharynx normal Moist mucous membranes, pink appearing Neck: Normal inspection Supple No lymphadenopathy. No JVD CVS: Rate and rhythm normal No Bruits No murmurs Respiratory: Breath sounds normal bilaterally, normal chest rise and fall, no obvious traum a Abdomen: Soft, non-distended, Bowel sounds unremarkable. CVA's non-tender. No guarding or r ebound. No masses. No hernias. Back: No point tenderness. Moves without difficulty Extremities: Moves all extremities without pain or restriction. No obvious deformity. Well perfused. No calf tenderness No leg swelling Skin: Color normal. Warm and dry. No rash noted Neuro: No gross motor/sensory deficits noted. No facial asymmetry Medical Decision Making and Emergency Department Course ED Department Course 6:27 AM Pt presents to the ED complaining of CP. On exam, pt is unremarkable. I feel that the list of possible emergent diagnoses that the patient requires an evaluation for includes (but is not limited to) pneumonia, atypical ACS, pneumothorax, pleural effusio n or PE vs other. I believe that Troponin, UA, Lipase, CMP, CBC, CXR, and EKG laboratory te sting and further diagnostic testing is necessary to ensure that there is no acute emergent cause of the symptoms. 7:20 AM Reviewed labs. Troponin was <0.020. Will wait to order repeat Troponin. 8:01 AM Reviewed CXR, which showed no acute pulmonary disease. 10:38 AM Ordered repeat Troponin. 11:20 AM Reviewed repeat Troponin, which was normal and unchanged from previous. 11:34 AM I have discussed my clinical impression and treatment plan with the pt. We have sp ecifically discussed the signs and symptoms that would constitute the need for an immediate return to the ED, the importance of continued outpatient f/u and the importance of complianc e with the d/c instructions. I have answered any questions that the pt has to the best of my ability. Based upon the pt s history, physical exam, ED course, and diagnostic studies, I feel mykel t there is no current emergent medical condition that warrants admission, transfer, or furth er ED treatment at this time. Medications sodium chloride 0.9 % flush 10 mL (not administered) ondansetron (ZOFRAN) injection 4 mg (4 mg Intravenous Not Given 08/31/14 0646) simethicone (MYLICON) chewable tablet 80 mg (not administered) sodium chloride (bolus) 0.9 % 1,000 mL (0 mLs Intravenous Stopped 08/31/14 0759) Filed Vitals: 08/31/14 0758 08/31/14 0857 08/31/14 0957 08/31/14 1027 BP: 153/71 138/65 125/58 127/61 Pulse: 69 74 56 54 Temp: TempSrc: Resp: 18 18 18 18 Weight: SpO2: 99% 99% 97% 97% Records Reviewed Old medical records. Nursing notes. Last stress test June was nl Last MRI brain in 05/21 was nl MRA brain nl in 05/21 was nl Echo in 04/20 was nl Laboratory Evaluation Results Procedure Component Value Ref Range Date/Time Troponin I, Lab [[id number]] Collected: 08/31/14 1040 Order Status: Completed Updated: 08/31/14 1112 Specimen Information: Blood TROPONIN I <0.020 0.00 - 0.10 ng/mL Urine microscopic [[id number]] Collected: 08/31/14 0757 Order Status: Completed Updated: 08/31/14 0819 Specimen Information: Urine / Urine, Clean Catch WBC 1-5 0 - 5 /hpf RBC 0-2 0 - 2 /hpf EPITHELIAL 1-5 /lpf BACTERIA NONE SEEN NONE SEEN POC clinitek 10 [[id number]] Collected: 08/31/14 0747 Order Status: Completed Updated: 08/31/14 0751 Color, UA YELLOW Clarity, UA CLEAR Glucose, UA NEGATIVE NEGATIVE mg/dL Bilirubin, UA NEGATIVE NEGATIVE Ketones, UA NEGATIVE NEGATIVE mg/dL Spec Grav, UA 1.010 1.001 - 1.035 Blood, UA NEGATIVE NEGATIVE pH, UA 6.0 4.6 - 8.0 Protein, UA NEGATIVE NEGATIVE mg/dL Urobilinogen, UA 0.2 <1.1 mg/dL Nitrite, UA NEGATIVE NEGATIVE WBC, UA NEGATIVE NEGATIVE Lipase [[id number]] Collected: 08/31/14636 Order Status: Completed Updated: 08/31/14708 Specimen Information: Blood LIPASE 219 73 - 393 U/L Troponin I, Lab [[id number]] Collected: 08/31/14636 Order Status: Completed Updated: 08/31/14708 Specimen Information: Blood TROPONIN I <0.020 0.00 - 0.10 ng/mL Comprehensive metabolic panel [[id number]] (Abnormal) Collected: 08/31/14636 Order Status: Completed Updated: 08/31/14708 Specimen Information: Blood SODIUM 141 135 - 143 mmol/L POTASSIUM 3.5 3.5 - 4.9 mmol/L CHLORIDE 107 99 - 109 mmol/L CO2 26 23 - 32 mmol/L ANION GAP AGAP 12 5 - 20 mmol/L GLUCOSE 152 (H) 65 - 99 mg/dL BUN 15 8 - 25 mg/dL CREATININE 1.11 0.70 - 1.30 mg/dL BUN/CREAT 14 CALCIUM 8.4 (L) 8.5 - 10.5 mg/dL TOTAL PROTEIN 7.1 6.3 - 8.2 g/dL Albumin 3.1 (L) 3.6 - 5.0 g/dL GLOBULIN 4.0 1.3 - 4.9 g/dL A/G 0.8 (L) 1.0 - 2.4 TBIL 0.3 0.1 - 1.5 mg/dL ALK PHOS 75 35 - 115 U/L AST 21 10 - 45 U/L ALT 22 10 - 65 U/L EGFR >60 >60 mL/min/1.73m2 Protime [[id number]] Collected: 08/31/14636 Order Status: Completed Updated: 08/31/14704 Specimen Information: Blood INR 2.7 CBC with differential [[id number]] (Abnormal) Collected: 08/31/14636 Order Status: Completed Updated: 08/31/14649 Specimen Information: Blood WBC 7.72 3.80 - 11.00 K/uL RBC 5.19 4.20 - 5.70 M/uL HGB 13.1 (L) 13.2 - 17.0 g/dL HCT 40.6 39.0 - 50.0 % MCV 78.3 (L) 80.0 - 100.0 fl MCH 25.2 (L) 27.0 - 34.0 pg MCHC 32.3 32.0 - 35.5 g/dL RDW SD 47.7 37 - 53 fl PLT 235 150 - 400 K/uL MPV 7.7 fl DIFF TYPE AUTOMATED NEUTROPHILS 52.11 % LYMPHOCYTES 33.56 % MONOCYTES 8.21 % EOSINOPHILS 5.08 % BASOPHILS 1.04 % NEUTROPHILS ABS 4.02 1.90 - 7.40 K/uL LYMPHOCYTES ABS 2.59 1.00 - 3.90 K/uL MONOCYTES ABS 0.63 0.00 - 0.80 K/uL EOSINOPHILS ABS 0.39 0.00 - 0.50 K/uL BASOPHILS ABS 0.08 0.00 - 0.10 K/uL I personally reviewed the lab results and they have been posted to the chart. Pertinent po sitive and negative findings have been addressed appropriately. Radiology and EKG Evaluation Imaging Results XR chest PA and lateral (Final result) Result time: 08/31/14 07:34:07 Final result by Rad Results In Richard (08/31/14 07:34:07) Impression: 1. No acute pulmonary disease. Narrative: NORAH GR XR CHEST 2 VIEW FRONTAL AND LATERAL 08/31/2014 7:22 AM HISTORY: 58 years. Male. Chest pain TECHNIQUE: XR CHEST 2 VIEW FRONTAL AND LATERAL. Standard technique. Total of 2 images obtained. COMPARISON: 07/24/2014 FINDINGS: The heart is normal in size. The pulmonary vascular pattern is normal. Lungs are well aer ated. No acute airspace disease, parenchymal nodule, mass, pleural effusion or pneumothorax is noted. The osseous structures are normal. EKG 0614 Normal sinus rhythm. No ectopy or blocks. Intervals and segments are normal. No acute ST-T changes. Reviewed and interpreted by me independently and contemporaneously. Zach Tena ED Diagnosis Final diagnosis Chest pain, unspecified chest pain type Disposition: ED Disposition Discharge Condition at discharge: Stable Follow-up Information Follow up With Details Comments Contact Info [facility] Emergency Department If symptoms worsen [address] [facility] [address] [phone] Jerrell Gutiérrez DO Schedule an appointment as soon as possible for a visit [address] [place] [address] [facility] [address] Discharge Medications: New Prescriptions No new medications Procedures Additional Documentation Procedures Attending Note: Documentation assistance provided by Nara Briscoe (Scribe). Information recorded by the scribe has been reviewed and validated by me. Troy laughlin with its contents. MD Zach Church MD 09/07/14618 onversion Transacti on, Provider Unknown - 08/31/2014 6:10 AM PDTFormatting of this note might be different fro m the original. ED Notes by Kenny Holliday RN at 08/31/14609 Author: Kenny Holliday RN Service: (none) Author Type: Registered Nurse Filed: 08/31/14609 Date of Service: 08/31/14609 Status: Signed Protector Plate Attacher: Kenny Holliday RN (Registered Nurse) Bed: 01 Expected date: Expected time: Means of arrival: [...] [place], | | | | | | [place] [address] | | | | | | [phone] | | | | | | | | +--------+ + + + + documented as of this encounter Procedures + +--------+ + + + | Procedure Name | Priori | Date/Time | Associated Diagnosis | Comments | | | ty | | | | + +--------+ + + + | TROPONIN I | Routin | 08/31/2014 | | Results for this | | | e | 10:40 AM | | procedure are in the | | | | PDT | | results section. | + +--------+ + + + | URINALYSIS, | Routin | 08/31/2014 | | Results for this | | MICROSCOPIC ONLY | e | 7:57 AM | | procedure are in the | | | | PDT | | results section. | + +--------+ + + + | XR CHEST 2 VIEWS | Routin | 08/31/2014 | | Results for this | | | e | 7:22 AM | | procedure are in the | | | | PDT | | results section. | + +--------+ + + + | EXTERNAL LAB: CBC | Routin | 08/31/2014 | | Results for this | | | e | 6:37 AM | | procedure are in the | | | | PDT | | results section. | + +--------+ + + + | TROPONIN I | Routin | 08/31/2014 | | Results for this | | | e | 6:37 AM | | procedure are in the | | | | PDT | | results section. | + +--------+ + + + | PROTIME INR | Routin | 08/31/2014 | | Results for this | | | e | 6:37 AM | | procedure are in the | | | | PDT | | results section. | + +--------+ + + + | LIPASE | Routin | 08/31/2014 | | Results for this | | | e | 6:37 AM | | procedure are in the | | | | PDT | | results section. | + +--------+ + + + | COMPREHENSIVE | Routin | 08/31/2014 | | Results for this | | METABOLIC PANEL | e | 6:37 AM | | procedure are in the | | | | PDT | | results section. | + +--------+ + + + | ECG 12 LEAD | Routin | 08/31/2014 | | Results for this | | | e | 6:14 AM | | procedure are in the | | | | PDT | | results section. | + +--------+ + + + documented in this encounter Results Troponin I (08/31/2014 10:40 AM PDT) + + + + [...] | | | | | | ACUTE [place] Testing | | | | | | performed at [facility] | | | | | | [facility];[place], [place] | | | | | | [address] | | | | + + + [...] + +---------+ + + Urinalysis, Microscopic Only (08/31/2014 7:57 AM PDT) + + + + + + | Component | Value | Ref Range | Performed | Pathologist | | | | | At | Signature | + + + + + + | WBC, UA | 1-5Comment: Testing | 0 - 5 /hpf | EXTERNAL | | | | performed at [facility];[address] | | LAB | | | [address];[place] | | | | | | [address] | | | | + + + + + + | RBC, UA | 0-2Comment: Testing | 0 - 2 /hpf | EXTERNAL | | | | performed at [facility];[address] | | LAB | | | [address];[place] | | | | | | [address] | | | | + + + + + + | Epithelial | 1-5Comment: Testing | /lpf | EXTERNAL | | | Cells | performed at [facility];[address] | | LAB | | | [address];[place] | | | | | | [address] | | | | + + + + + + | Bacteria, | NONE SEENComment: | | EXTERNAL | | | UA | Testing performed at | | LAB | | | | [place];[address];[place] [address] | | | | + + + [...] +---------+ + + XR Chest 2 Vws (08/31/2014 7:22 AM PDT) + + | Specimen | + + | | + + + + + | Impressions | Performed At | + + + | 1. No acute pulmonary disease. | | + + + + + + | Narrative | Performed At | + + + | NORAH GR XR CHEST 2 VIEW FRONTAL AND LATERAL 08/31/2014 7:22 | | | AM HISTORY: 58 years. Male. Chest pain TECHNIQUE: XR | | | CHEST 2 VIEW FRONTAL AND LATERAL. Standard technique. Total of 2 | | | images obtained. COMPARISON: 07/24/2014 FINDINGS: The heart | | | is normal in size. The pulmonary vascular pattern is normal. Lungs | | | are well aerated. No acute airspace disease, parenchymal nodule, | | | mass, pleural effusion or pneumothorax is noted. The osseous | | | structures are normal. | | + + + + + | Procedure Note | + + | Richard, Rad Conversion - 09/20/2018 10:29 PM PDT NORAH GRXR CHEST 2 VIEW FRONTAL | | AND LATERAL08/31/2014 7:22 AM HISTORY:58 years. Male. Chest pain TECHNIQUE:XR CHEST 2 | | VIEW FRONTAL AND LATERAL. Standard technique. Total of 2 images obtained. | | COMPARISON:07/24/2014 FINDINGS:The heart is normal in size. The pulmonary vascular | | pattern is normal. Lungs are well aerated. No acute airspace disease, parenchymal | | nodule, mass, pleural effusion or pneumothorax is noted. The osseous structures are | | normal. IMPRESSION: 1. No acute pulmonary disease. | |XR CHEST 2 VIEW FRONTAL AND LATERAL. Standard technique. Total of 2 images obtained. | | | |COMPARISON: | |07/24/2014 | | | |FINDINGS: | |The heart is normal in size. The pulmonary vascular pattern is normal. Lungs are well aer ated. No acute airspace disease, parenchymal nodule, mass, pleural effusion or pneumothorax is noted. The osseous structures are normal. | | | |IMPRESSION: | |1. No acute pulmonary disease. | | | | | | | | | + + Troponin I (08/31/2014 6:37 AM PDT) + + + + + [...] | | | | | | ACUTE [place] Testing | | | | | | performed at [facility];[address] | | | | | | [address];[place] | | | | | | [address] | | | | + + + + + + + + | Specimen | + + | Blood specimen | | (specimen) | + + + +---------+ + + | Performing | Address | City/State/Zipcode | Phone Number | | Organization | | | | + +---------+ + + | EXTERNAL LAB | | | | + +---------+ + + Protime INR (08/31/2014 6:37 AM PDT) + + + + + + | Component | Value | Ref Range | Performed | Pathologist | | | | | At | Signature | + + + + + + | INR | 2.7Comment: REFERENCE | | EXTERNAL | | | [...] performed at [facility] | | | | | | [facility];[place], [place] | | | | | | [address] | | | | + + + [...] + +---------+ + + External Lab: CBC (08/31/2014 6:37 AM PDT) + + + + + + | Component | Value | Ref Range | Performed | Pathologist | | | | | At | Signature | + + + + + + | WBC | 7.72Comment: Testing | 3.80 - 11.00 | EXTERNAL | | | | performed at [facility];[address] | K/uL | LAB | | | | [address];[place] | | | | | | [address] | | | | + + + + + + | Non- | 5.19Comment: Testing | 4.20 - 5.70 | EXTERNAL | | | Red Blood | performed at [facility];[address] | M/uL | LAB | | | Cells | [address];[place] | | | | | Counted | [id number] | | | | + + + + + + | Hemoglobin | 13.1 (L)Comment: Testing | 13.2 - 17.0 | EXTERNAL | | | | performed at [facility];[address] | g/dL | LAB | | | | [address];[place] | | | | | | [address] | | | | + + + + + + | Hematocrit, | 40.6Comment: Testing | 39.0 - 50.0 % | EXTERNAL | | | POC | performed at [facility];[address] | | LAB | | | [address];[place] | | | | | | [address] | | | | + + + + + + | MCV | 78.3 (L)Comment: Testing | 80.0 - 100.0 fl | EXTERNAL | | | | performed at [facility];[address] | | LAB | | | [address];[place] | | | | | | [address] | | | | + + + + + + | MCH | 25.2 (L)Comment: Testing | 27.0 - 34.0 pg | EXTERNAL | | | | performed at [facility];[address] | | LAB | | | [address];[place] | | | | | | [address] | | | | + + + + + + | MCHC | 32.3Comment: Testing | 32.0 - 35.5 | EXTERNAL | | | | performed at [facility];[address] | g/dL | LAB | | | | [address];[place] | | | | | | [address] | | | | + + + + + + | RDW-CV | 47.7Comment: Testing | 37 - 53 fl | EXTERNAL | | | | performed at [facility];[address] | | LAB | | | | [address];[place] | | | | | | [address] | | | | + + + + + + | Platelet | 235Comment: Testing | 150 - 400 K/uL | EXTERNAL | | | Count | performed at [facility];[address] | | LAB | | | Plasma | [address];[place] | | | | | | [address] | | | | + + + + + + | MPV | 7.7Comment: Testing | fl | EXTERNAL | | | | performed at [facility];[address] | | LAB | | | | [address];[place] | | | | | | [address] | | | | + + + + + + | Differentia | AUTOMATEDComment: | | EXTERNAL | | | l Type | Testing performed at | | LAB | | | | [facility];[address];[place] [address] | | | | + + + + + + | % Segmented | 52.11Comment: Testing | % | EXTERNAL | | | | performed at [facility];[address] | | LAB | | | Neutrophils | [address];[place] | | | | | | [address] | | | | + + + + + + | % | 33.56Comment: Testing | % | EXTERNAL | | | Lymphocytes | performed at [facility];[address] | | LAB | | | | [address];[place] | | | | | | [address] | | | | + + + + + + | % Monocytes | 8.21Comment: Testing | % | EXTERNAL | | | | performed at [facility];[address] | | LAB | | | | [address];[place] | | | | | | [address] | | | | + + + + + + | % | 5.08Comment: Testing | % | EXTERNAL | | | Eosinophils | performed at [facility];[address] | | LAB | | | | [address];[place] | | | | | | [address] | | | | + + + + + + | % Basophils | 1.04Comment: Testing | % | EXTERNAL | | | | performed at [facility];[address] | | LAB | | | | [address];[place] | | | | | | [address] | | | | + + + + + + | Absolute | 4.02Comment: Testing | 1.90 - 7.40 | EXTERNAL | | | Segmented | performed at [facility];[address] | K/uL | LAB | | | Neutrophils | [address];[place] | | | | | | [address] | | | | + + + + + + | Absolute | 2.59Comment: Testing | 1.00 - 3.90 | EXTERNAL | | | Lymphocytes | performed at [facility];[address] | K/uL | LAB | | | | [address];[place] | | | | | | [address] | | | | + + + + + + | Absolute | 0.63Comment: Testing | 0.00 - 0.80 | EXTERNAL | | | Monocytes | performed at [facility];[address] | K/uL | LAB | | | | [address];[place] | | | | | | [address] | | | | + + + + + + | Absolute | 0.39Comment: Testing | 0.00 - 0.50 | EXTERNAL | | | Eosinophils | performed at [facility];[address] | K/uL | LAB | | | | [address];[place] | | | | | | [address] | | | | + + + + + + | Absolute | 0.08Comment: Testing | 0.00 - 0.10 | EXTERNAL | | | Basophils | performed at [facility];[address] | K/uL | LAB | | | | [address];[place] | | | | | | [address] | | | | + + + + + + + + | Specimen | + + | Blood specimen | | (specimen) | + + + +---------+ + + | Performing | Address | City/State/Zipcode | Phone Number | | Organization | | | | + +---------+ + + | EXTERNAL LAB | | | | + +---------+ + + Lipase (08/31/2014 6:37 AM PDT) + + + + + + | Component | Value | Ref Range | Performed | Pathologist | | | | | At | Signature | + + + + + + | Lipase | 219Comment: Testing | 73 - 393 U/L | EXTERNAL | | | | performed at [facility];888 | | LAB | | | | [address];[place] | | | | | | [address] | | | | + + + [...] + +---------+ + + Comprehensive Metabolic Panel (08/31/2014 6:37 AM PDT) + + + + + + | Component | Value | Ref Range | Performed | Pathologist | | | | | At | Signature | + + + + + + | Na | 141Comment: Testing | 135 - 143 | EXTERNAL | | | | performed at [facility];888 | mmol/L | LAB | | | | [address];[place] | | | | | | [address] | | | | + + + + + + | K | 3.5Comment: Testing | 3.5 - 4.9 | EXTERNAL | | | | performed at [facility];888 | mmol/L | LAB | | | | [address];[place] | | | | | | [address] | | | | + + + + + + | Cl | 107Comment: Testing | 99 - 109 mmol/L | EXTERNAL | | | | performed at [facility];[address] | | LAB | | | | [address];[place] | | | | | | [address] | | | | + + + + + + | CO2 | 26Comment: Testing | 23 - 32 mmol/L | EXTERNAL | | | | performed at [facility];[address] | | LAB | | | | [address];[place] | | | | | | [address] | | | | + + + + + + | Anion Gap | 12Comment: Testing | 5 - 20 mmol/L | EXTERNAL | | | | performed at [facility];[address] | | LAB | | | | [address];[place] | | | | | | [address] | | | | + + + + + + | Glucose, | 152 (H)Comment: Testing | 65 - 99 mg/dL | EXTERNAL | | | Fasting | performed at [facility];[address] | | LAB | | | | [address];[place] | | | | | | [address] | | | | + + + + + + | BUN | 15Comment: Testing | 8 - 25 mg/dL | EXTERNAL | | | | performed at [facility];[address] | | LAB | | | | [address];[place] | | | | | | [address] | | | | + + + + + + | Creatinine | 1.11Comment: Testing | 0.70 - 1.30 | EXTERNAL | | | | performed at [facility];888 | mg/dL | LAB | | | | [address];[place] | | | | | | [address] | | | | + + + + + + | BUN/Creatin | 14Comment: Testing | | EXTERNAL | | | ine Ratio | performed at [facility];[address] | | LAB | | | | [address];[place] | | | | | | [address] | | | | + + + + + + | Calcium | 8.4 (L)Comment: Testing | 8.5 - 10.5 | EXTERNAL | | | | performed at [facility];888 | mg/dL | LAB | | | | [address];[place] | | | | | | [address] | | | | + + + + + + | Protein, | 7.1Comment: Testing | 6.3 - 8.2 g/dL | EXTERNAL | | | Total | performed at [facility];[address] | | LAB | | | | [address];[place] | | | | | | [address] | | | | + + + + + + | Albumin | 3.1 (L)Comment: Testing | 3.6 - 5.0 g/dL | EXTERNAL | | | | performed at [facility];[address] | | LAB | | | | [address];[place] | | | | | | [address] | | | | + + + + + + | Globulin | 4.0Comment: Testing | 1.3 - 4.9 g/dL | EXTERNAL | | | | performed at [facility];[address] | | LAB | | | | [address];[place] | | | | | | [address] | | | | + + + + + + | A/G Ratio | 0.8 (L)Comment: Testing | 1.0 - 2.4 | EXTERNAL | | | | performed at [facility];[address] | | LAB | | | | [address];[place] | | | | | | [address] | | | | + + + + + + | Bilirubin | 0.3Comment: Testing | 0.1 - 1.5 mg/dL | EXTERNAL | | | Total | performed at [facility];[address] | | LAB | | | | [address];[place] | | | | | | [address] | | | | + + + + + + | ALP, | 75Comment: Testing | 35 - 115 U/L | EXTERNAL | | | External | performed at [facility];[address] | | LAB | | | | [address];[place] | | | | | | [address] | | | | + + + + + + | AST | 21Comment: Testing | 10 - 45 U/L | EXTERNAL | | | | performed at [facility];[address] | | LAB | | | | [address];[place] | | | | | | [address] | | | | + + + + + + | ALT | 22Comment: Testing | 10 - 65 U/L | EXTERNAL | | | | performed at [facility];888 | | LAB | | | | [facility];[place], [place] | | | | | | [address] | | | | + + + [...] | | | | | | at [facility];[address] [facility] | | | | | | [address]vd;[place] [address] | | | | + + + + + + + + | Specimen | + + | Blood specimen | | (specimen) | + + + +---------+ + + | Performing | Address | City/State/[facility] | Phone Number | | Organization | | | | + +---------+ + + | EXTERNAL LAB | | | | + +---------+ + + ECG 12 lead (08/31/2014 6:14 AM PDT) + + + + + [...] of | | | | | | 29-JUL-2014 03:48,No | | | | | | significant [...] (500), | | | | | | business editor Estrada San ([id number]) | | | | | | on 08/31/2014 6:38:42 AM | | | | | | | | | | + + + + + + + + | Specimen | + + | | + + + + + | Narrative | Performed At | + + + | [facility] | EXTERNAL LAB | + + + + +---------+ + + | Performing | Address | City/State/Zipcode | Phone Number | | Organization | | | | + +---------+ + + | EXTERNAL LAB | | | | + +---------+ + + documented in this encounter Visit Diagnoses + + | Diagnosis | + + | Chest pain, unspecified chest pain type | + + documented in this encounter"
--- OUTSIDE RECORDS SUMMARY | ~2019-10-12 | XMS | Encounter Summary ---
Demographics + + + | Address | [address] | | | [place] [address] | + + + | Home Phone | | + + + | Preferred Language | Unknown | + + + | Marital Status | | + + + | Buddhist Affiliation | 1027 | + + + | Race | White | + + + | Ethnic Group | Not or | + + + Author + + + | Author | [facility] | | | and [place] | + + + | Organization | [facility] | | | and [place] | + + + | Address | Unknown | + + + | Phone | Unavailable | + + + Support + + + + + | Name | Relationship | Address | Phone | + + + + + | Sammi Kohler | ECON | [place] [address] | | + + + + + Care Team Providers + +------+ + | Care Pipe Finisher Name | Role | Phone | + +------+ + | Mireya Pack NP | PCP | | + +------+ + Reason for Visit +--------+--------+ + | Reason | Onset | Comments | | | Date | | +--------+--------+ + | Triage | 06/06/ | | | | 2020 | | +--------+--------+ + Encounter Details +--------+ + + + + | Date | Type | Department | Care Team | Description | +--------+ + + + + | 06/06/ | Telephone | [facility] | Mireya Pack, | Triage | | 2020 | | [facility] | [employer] [employer] [address] | | | | | [address] | [address] [place], | | | | | [place], [place] | [place] [address] | | | | | [address] | [phone] | | | | | [phone] | | | +--------+ + + + [...] Telephone Encounter - Lucia Amos RN - 06/20/2019 1:10 PM PDTPlease note new phone encounter dated 06/20/19. This should be a new encounter, should not be attached to joana sanchez that was already completed 13 days ago. Thanks. elephone Encounter - Saulo Palomares - 06/20/2019 11:44 AM P DTDavud, is returning call for Triage and would like a call back. Additional Call Details: Kevyn is calling Araseli back. Please call him at [phone] elephone Encounter - Lucia Frankel RN - 06/07/2019 3:23 PM PDT Call returned to patient and reminded him that he can take an extra dose of his hydralazine if BP > 160mm Hg. He also has his routine d ose for later in the day. He stated understanding. BP was 229/118. Denied having any other symptoms. Encouraged to call clinic back for questi ons/ clarifications. Routed to PCP as FYI. elephone Encounter - Maureen Gabriel - 06/07/2019 3:09 PM PDTPatient is calling and states that his BP keeps getting higher. Please call patient to triage documented in this encounter Plan of Treatment [...] | | | | | | [place] [address] | | | | | | [phone] | | | | | | | | +--------+ + + + + documented as of this encounter Visit Diagnoses Not on filedocumented in this encounter"
--- OUTSIDE RECORDS SUMMARY | ~2019-10-12 | XMS | Encounter Summary ---
Demographics + + + | Address | [address] | | | [place] [address] | + + + | Home Phone | | + + + | Preferred Language | Unknown | + + + | Marital Status | | + + + | Lutheran Affiliation | 1027 | + + + [...] + | Sammi Kohler | ECON | [place] [address] | | + + + + + Care Team Providers + +------+ + | Care Hematology Technologist Name | Role | Phone | + +------+ + PCP | Unavailable | + +------+ + Encounter Details +--------+ + + + + | Date | Type | Department | Care Team | Description | +--------+ + + + + | 09/05/ | Emergency | [facility] | Kirill Hardy, | Biliary colic; | | 2012 | | [facility] | [address] | [place] | | | | [facility] | [place] [address] | | | | | [address] | [phone] | | | | | [place], [place] | | | | | | [address] | | | | | | [phone] | | | +--------+ + + + [...] documented as of this encounter ED Notes Kirill Hardy MD - 09/05/2012 10:54 AM PDTFormatting of this note might be different fr om the original. ED Provider Notes by Kirill Hardy MD at 09/05/12 1054 Author: Kirill Hardy MD Service: (none) Author Type: Physician Filed: 09/06/12 1119 Date of Service: 09/05/124 Status: Signed Chemical Checker: Kirill Hardy MD (Physician) [facility] Department of Emergency Medicine 10:54 AM History of Present Illness Patient Identification Norah Gr is a 56 y.o. male. Patient information was obtained from patient. History/Exam limitations: none. Patient presented to the Emergency Department Car Room:03/10 Chief Complaint Chief Complaint Patient presents with Abdominal Pain The patient presents to ED with complaints of abd pain. Onset of symptoms was last night. With a constant course since that time. The symptoms are described to be of moderate severi ty. Pt states that he has a h/o gallstones found on ultrasound. Pt does not recall eating an ything spicy or greasy for dinner last night. Additional symptoms include back pain and "bu rping". Pt has no other complaints at this time. Primary Care Doctor: JERRELL GUTIÉRREZ Past Medical [...] mg by mouth daily. Yes Historical Provider atenolol (TENORMIN) 100 MG tablet Take 200 mg by mouth nightly. Yes Historical Provider clopidogrel (PLAVIX) 75 MG tablet Take 75 mg by mouth daily. Yes Historical Provider cyanocobalamin 1000 MCG tablet Take 100 mcg by mouth daily. Yes Historical Provider diltiazem (DILACOR XR) 120 MG 24 hr capsule Take 240 mg by mouth daily. Yes Historical Pr ovider fenofibrate (TRIGLIDE) 160 MG tablet Take 160 mg by mouth daily. Yes Historical Provide r fluticasone-salmeterol (ADVAIR DISKUS) 250-50 MCG/DOSE AEPB Inhale 1 puff into the lungs 2 (two) times daily. 08/14/12 09/13/12 Yes Josefa Ramon MD glipiZIDE (GLUCOTROL) 5 MG tablet Take 5 mg by mouth 2 (two) times daily before meals. Yes Historical Provider hydrocodone-acetaminophen (VICODIN) 5-500 MG per tablet Take 1 tablet by mouth every 6 (six ) hours as needed. Yes Historical Provider ipratropium-albuterol (COMBIVENT) 18-103 MCG/ACT inhaler Inhale 2 puffs into the lungs ever y 6 (six) hours as needed for Wheezing. 08/14/12 08/14/13 Yes Josefa Ramon MD METFORMIN HCL PO Take 1,000 mg by mouth 2 (two) times daily. Yes Historical Provider paroxetine (PAXIL) 40 MG tablet Take 40 mg by mouth every morning. Yes Historical Provi carlos pravastatin (PRAVACHOL) 20 MG tablet Take 20 mg by mouth nightly. Yes Historical Provider tiotropium (SPIRIVA) 18 MCG inhalation capsule Inhale 18 mcg into the lungs daily. Yes Hi storical Provider niacin (NIASPAN) 500 MG CR tablet Take 500 mg by mouth 2 (two) times daily. 2 tabs in am, 1 tab in pm Historical Provider ranitidine (ZANTAC) 150 MG tablet Take 1 tablet by mouth 2 (two) times daily. 12/13/11 Yaakov Bridges, TAMSULOSIN HCL PO Take 0.4 mg by mouth. Historical Provider triamterene-hydrochlorothiazide (MAXZIDE) 75-50 MG per tablet Take 1 tablet by mouth daily. Historical Provider aspirin 325 MG EC tablet Take 1 tablet by mouth daily. 08/14/12 09/05/12 Josefa Yuan MD Allergies Allergen Reactions Vitamin B12 Anaphylaxis History [...] swallowing, difficulty breathing. No headache, chest pain, weakness or rash. Positive for abd pain and back pain. Positive for "burping" No difficulty with urination or bowel movement. All systems otherwise negative, except as recorded above and as recorded in the HPI. Physical Exam BP 162/86 | Pulse 63 | Resp 24 | Ht 1.803 m (5' 11") | Wt 111.131 kg (245 lb) | BMI 34.17 k g/m2 | SpO2 95% INTERPRETATION OF VITALS other than pulse oximetry Hypertensive, tachypnea, otherwise vitals normal Pulse Oximetry interpretation: Normal PHYSICAL EXAM Appearance: Alert. No acute distress. Head: Normal external exam Eyes: Eyes normal inspection. ENT: Normal external ENT inspection. Neck: Normal inspection. CVS: Normal heart rate and rhythm. Heart sounds normal. Pulse normal. Respiratory: No respiratory distress. Breath sounds normal. No rales or rhonchi. Abdomen: RUQ pain, right side pain Back: Moves without difficulty. Skin: Skin warm. Extremities: No calf tenderness. No lower extremity edema. Neuro: Oriented. Moves all extremities. Medical Decision Making and Emergency Department Course ED Medical Decision Making: Pt has h/o known gallstones. Given the location of his pain this is a likely cause, he has a difficult exam for ultrasound, will CT. ED Department Course: Exam CT has no significant findings. Labs were currently not concerning. Refer for outpatie nt f/u. 1:59 PM. Pt recheck. Pt feeling iimproved at this time. I have instructed the pt to follow up with their pcp for recheck. We have discussed s/s that would necessitate an immediate re turn visit to the ED. Pt verbalized their understanding of the discharge instructions. All questions and concerns address. No decompensation or new symptoms observed or reported dur ing visit. Visit Vitals Filed Vitals: 09/05/12 1024 09/05/12 1245 09/05/12 1358 BP: 162/86 161/72 153/70 Pulse: 63 60 62 Temp: 97.3 F (36.3 C) TempSrc: Oral Resp: 24 16 14 Height: 1.803 m (5' 11") Weight: 111.131 kg (245 lb) SpO2: 95% 94% Records Reviewed Reviewed nursing triage notes. Orders Placed Orders Placed This Encounter Procedures CT Abdomen & Pelvis with contrast CBC with differential Comprehensive metabolic panel Lipase Urine screen Medications clopidogrel (PLAVIX) 75 MG tablet (not administered) tiotropium (SPIRIVA) 18 MCG inhalation capsule (not administered) hydrocodone-acetaminophen (VICODIN) 5-500 MG per tablet (not administered) HYDROcodone-acetaminophen (NORCO) 5-325 MG per tablet (not administered) ondansetron (ZOFRAN) injection 8 mg (8 mg Intravenous Given 09/05/12 1129) lidocaine (XYLOCAINE) 2 % 10 mL, aluminum-magnesium hydroxide-simethicone (MAALOX) 200-200- 20 MG/5ML 30 mL solution (40 mL Oral Given 09/05/12 1130) iopamidol (ISOVUE-300) 61 % injection 100 mL (100 mL Intravenous Given 09/05/12 1233) Laboratory Evaluation Labs Reviewed CBC W/AUTO DIFF (REFLEX TO MANUAL) - Abnormal; Notable for the following: MONOCYTES ABS 0.9 (*) All other components within normal limits COMPREHENSIVE METABOLIC PANEL - Abnormal; Notable for the following: GLUCOSE 137 (*) Testing performed at [facility];[address] [place] [address];[place] [address] Albumin 3.5 (*) Testing performed at [facility];[address] [place] [address];[place] [address] A/G 0.9 (*) Testing performed at [facility];[address] [place] [address];[place] [address] All other components within normal limits POC CLINITEK 10 - Abnormal; Notable for the following: Protein, UA 30 (*) Testing performed at [facility];[address] [place] [address];[place] [address] All other components within normal limits LIPASE I have reviewed lab results from the emergency department workup and abnormal results have been posted to the chart. Pertinent positive and negative findings have been addressed appr opriately. Radiology and EKG Evaluation Imaging Results CT Abdomen & Pelvis with contrast (Final result) Result time:09/05/12 1251 Final result by Rad Results In Richard (09/05/12 12:51:31) Narrative: NORAH GR CT ABDOMEN PELVIS W [...] recognition system. The possibility of "sound alike" brazer repair and salvage errors, addition and/or deletions may occur. If there is any question about this report please contact the originating radiologist. Diagnoses Final diagnoses Biliary colic [place] abdominal pain Disposition: ED Disposition Discharge Condition at discharge: Stable Follow-up Information Follow up With Details Comments Contact Info Jevon Vargas DO tomorrow afternoon [address] [facility] [address] [facility] [address] [facility] Emergency Department If symptoms worsen [address] [facility] [address] Jerrell Gutiérrez DO Discharge Medications: New Prescriptions HYDROCODONE-ACETAMINOPHEN (NORCO) 5-325 MG PER TABLET Take 1 tablet by mouth every 6 (s ix) hours as needed for Pain. Additional Documentation Procedures Attending Note: Documentation assistance provided by Rena Emmanuel (Scribe). Information recorded by the scribe has been reviewed and validated by me. I ag qian with its contents. MD Kirill Coley MD 09/06/12 1119 documente d in this encounter Plan of Treatment +--------+ + + + + | Date | Type | Specialty | Care Team | Description | +--------+ + + + + | 10/16/ | Anti-coag | Anticoagulation | Brittany Zaragoza | | | 2020 | visit | | [address] | | | | | | [place], | | | | | | [place] [address] | | | | | | [phone] | | | | | | | | +--------+ + + + + documented as of this encounter Procedures + +--------+ + + + | Procedure Name | Priori | Date/Time | Associated Diagnosis | Comments | | | ty | | | | + +--------+ + + + | CT ABDOMEN PELVIS W | Routin | 09/05/2012 | | Results for this | | CONTRAST | e | 12:34 PM | | procedure are in the | | | | PDT | | results section. | + +--------+ + + + documented in this encounter Results CT Abdomen Pelvis w Contrast (09/05/2012 12:34 PM PDT) + + | Specimen | + + | | + + + + + | Narrative | Performed At | + + + | NORAH GR CT ABDOMEN PELVIS W CONTRAST CT abdomen and pelvis | | | with contrast HISTORY: 56 years. Male. Abdominal pain | | | TECHNIQUE: 5-mm axial images were acquired through the abdomen and | | | pelvis. Oral Contrast: Readi-Cat IV contrast: 100 mL IsoVue 300 | | | COMPARISON: None. FINDINGS: The visualized portions of the heart | | | and lung bases are normal. The distal esophagus is normal. | | | The liver, spleen, pancreas, adrenal glands are normal in appearance. | | | Small layering stones are noted within the gallbladder. No | | | gallbladder wall thickening, mass or pericholecystic fluid. The | | | aorta and vena cava are normal in caliber throughout their visualized | | | course including the iliac and femoral vessels. No free fluid or | | | free air is present. No adenopathy is seen in the abdomen or | | | pelvis. The luminal GI tract has a normal pattern without | | | dilatation or air-fluid levels to suggest obstruction or ileus. No | | | evidence of bowel wall thickening or mass. The portions of the | | | appendix visualized are normal in caliber. There is no significant | | | diverticular disease. The kidneys show no stones or | | | hydronephrosis. There is the exophytic some cyst = 2.6 cm arising | | | from the lateral aspect lower pole right kidney. No ureteral | | | dilatation. Urinary bladder is normal. Prostate and seminal | | | vesicles are normal in size. The muscles are symmetric. No focal | | | atrophy or soft tissue mass is seen. No hernias are identified. | | | Mild lumbar spondylosis but no lytic or blastic lesions. | | | IMPRESSION: 1. Cholelithiasis but no CT findings to suggest | | | cholecystitis. 2. Right renal cyst. 3. Otherwise unremarkable CT | | | scan of the abdomen and pelvis with no imaging findings to account | | | for the patient's symptomatology. This report has been prepared | | | with a voice recognition system. The possibility of "sound alike" | | | brazer repair and salvage errors, addition and/or deletions may occur. If there | | | is any question about this report please contact the originating | | | radiologist. Electronically signed by Addison Jackson MD on | | | 09/05/2012 12:51 PM | | + + + + + | Procedure Note | + + | Richard, Rad Conversion - 09/28/2018 3:24 PM PDT NORAH Andrea JONESCT ABDOMEN PELVIS W | | CONTRASTCT abdomen and pelvis with contrast HISTORY: 56 years. Male. Abdominal | | painTECHNIQUE:5-mm axial images were acquired through the abdomen and pelvis.Oral | | Contrast: Readi-CatIV contrast: 100 mL IsoVue 300 COMPARISON:None. FINDINGS:The | | visualized portions of the heart and lung bases are normal. The distal esophagus is | | normal. The liver, spleen, pancreas, adrenal glands are normal in appearance. Small | | layering stones are noted within the gallbladder. No gallbladder wall thickening, mass | | or pericholecystic fluid. The aorta and vena cava are normal in caliber throughout their | | visualized course including the iliac and femoral vessels. No free fluid or free air is | | present. No adenopathy is seen in the abdomen or pelvis. The luminal GI tract has a | | normal pattern without dilatation or air-fluid levels to suggest obstruction or ileus. | | No evidence of bowel wall thickening or mass. The portions of the appendix visualized | | are normal in caliber. There is no significant diverticular disease. The kidneys show | | no stones or hydronephrosis. There is the exophytic some cyst = 2.6 cm arising from the | | lateral aspect lower pole right kidney. No ureteral dilatation. Urinary bladder is | | normal. Prostate and seminal vesicles are normal in size. The muscles are symmetric. | | No focal atrophy or soft tissue mass is seen. No hernias are identified. Mild lumbar | | spondylosis but no lytic or blastic lesions. IMPRESSION:1. Cholelithiasis but no CT | | findings to suggest cholecystitis.2. Right renal cyst.3. Otherwise unremarkable CT | | scan of the abdomen and pelvis with no imaging findings to account for the patient's | | symptomatology. This report has been prepared with a voice recognition system.The | | possibility of "sound alike" brazer repair and salvage errors, addition and/or deletions may occur. | | If there is any question about this report please contact the originating radiologist. | | | |No adenopathy is seen in the abdomen or pelvis. | | | |The luminal GI tract has a normal pattern without dilatation or air-fluid levels to sugges t obstruction or ileus. No evidence of bowel wall thickening or mass. The portions of the appendix visualized are normal in caliber. There is no significant | |diverticular disease. | | | |The kidneys show no stones or hydronephrosis. There is the exophytic some cyst = 2.6 cm ar ising from the lateral aspect lower pole right kidney. No ureteral dilatation. Urinary susan dder is normal. Prostate and seminal vesicles are normal in size. | | | |The muscles are symmetric. No focal atrophy or soft tissue mass is seen. No hernias are i dentified. | | | |Mild lumbar spondylosis but no lytic or blastic lesions. | | | |IMPRESSION: | |1. Cholelithiasis but no CT findings to suggest cholecystitis. | |2. Right renal cyst. | |3. Otherwise unremarkable CT scan of the abdomen and pelvis with no imaging findings to ac count for the patient's symptomatology. | | | | | |This report has been prepared with a voice recognition system. | |The possibility of "sound alike" brazer repair and salvage errors, addition and/or deletions may occur. If there is any question about this report please contact the originating radiologist. | | | | | + + documented in this encounter Visit Diagnoses + + | Diagnosis | + + | Biliary colic Calculus of gallbladder without mention of cholecystitis or obstruction | + + | Gallstone Calculus of gallbladder without mention of cholecystitis or obstruction | + + documented in this encounter
--- OUTSIDE RECORDS SUMMARY | ~2019-10-12 | XMS | Encounter Summary ---
Demographics + + + | Address | [address] | | | [place] [address] | + + + | Home Phone [...] Sammi Kohler | ECON | [place] [address] | | + + + + + Care Team Providers + +------+ + | Care Enamel Drier Name | Role | Phone | + +------+ + | Mireya Pack NP | PCP | | + +------+ + Encounter Details +--------+ + + + + | Date | Type | Department | Care Team | Description | +--------+ + + + + | 09/14/ | Orders Only | [facility] | Noble Conteh MD | | | 2019 | | [facility] [address] | [address] | | | | | [address] | [place] [address] | | | | | [place], [place] | [phone] | | | | | [address] | | | | | | [phone] | | | +--------+ + + + [...] | | | | | [place], | | | | | | [place] [address] | | | | | | [phone] | | | | | | | [...]
--- OUTSIDE RECORDS SUMMARY | ~2019-10-12 | XMS | Encounter Summary ---
Demographics + + + | Address | [address] | | | [place] [address] | + + + | Home Phone | | + + + | Preferred Language | Unknown | + + + | Marital Status | | + + + | Lutheran Affiliation | 1027 | + + + | Race | White | + + + | Ethnic Group | Not or | + + + Author + + + | Author | [facility] | | | and [place] | + + + | Organization | [facility] | | | and [place] | + + + | Address | Unknown | + + + | Phone | Unavailable | + + + Support + + + + + | Name | Relationship | Address | Phone | + + + + + | Sammi Kohler | ECON | [place] [address] | | + + + + + Care Team Providers + +------+ + | Care Electroplating Sales Representative Name | Role | Phone | + +------+ + | Mireya Pack NP | PCP | | + +------+ + Reason for Visit +--------+--------+ + | Reason | Onset | Comments | | | Date | | +--------+--------+ + | LABS | 09/19/ | | | | 2020 | | +--------+--------+ + Encounter Details +--------+ + + + + | Date | Type | Department | Care Team | Description | +--------+ + + + + | 09/19/ | Telephone | [facility] | Diane Hill RN | LABS | | 2019 | | [facility] | | | | | | [facility] [address] | | | | | | [facility] | | | | | | [place] | | | | | | [address] | | | | | | [phone] | | | +--------+ + + + [...] Miscellaneous Notes Telephone Encounter - Myriam Gary Shipping Assistant - 09/20/2019 4:28 PM PDTThanksEl ectronically signed by Myriam Gary Shipping Assistant at 09/20/2019 4:28 PM PDTTelephon e Encounter - Mireya Pack NP - 09/20/2019 2:55 PM PDTNoted, no redraw needed I will d efer until next lab work indicated. elephone Encounter - Myriam Gary Shipping Assistant - 09/20/2019 2:21 PM PDTRouting to requesting provide r. el ephone Encounter - Diane Hill RN - 09/20/2019 1:44 PM PDTTCL calling about an add on-W anted to add a CBC onto a A1c but the [facility] and it w as to late to add it on. Patient needs to come in and get a redraw. There are no orders to be seen for the CBc documented in this enc ounter Plan of [...] | | | | | | [place] [address] | | | | | | [phone] | | | | | | | | +--------+ + + + + documented as of this encounter Visit Diagnoses Not on filedocumented in this encounter"
--- OUTSIDE RECORDS SUMMARY | ~2019-10-12 | XMS | Encounter Summary ---
Demographics + + + | Address | [address] | | | [place] [address] | + + + | Home Phone [...] + | Author | [facility] | | | and [place] | + + + | Organization | [facility] | | | and [place] | + + + | Address | Unknown | + + + | Phone | Unavailable | + + + Support + + + + + | Name | Relationship | Address | Phone | + + + + + | Sammi Kohler | ECON | [place] [address] | | + + + + + Care Team Providers + +------+ + | Care Twill Cutter Name | Role | Phone | + +------+ + | Mireya Pack NP | PCP | | + +------+ + Reason for Visit + + + | Reason | Comments | + + + | High Blood Sugar | | | (Symptomatic) | | + + + Encounter Details +--------+ + + + + | Date | Type | Department | Care Team | Description | +--------+ + + + + | 05/06/ | Telephone | [facility] | Lucia Amos | High Blood Sugar | | 2019 | | [facility] [address] | S RN | (Symptomatic) | | | | [address] | | | | | | [place] | | | | | | [address] | | | | | | [phone] | | | +--------+ + + + [...] Telephone Encounter - Lucia Amos RN - 05/07/2019 5:13 PM PDTCall made to patient, relayed provider's recommendations, he stated understanding. elephone Encounter - Adriana Lopez ARNP - 3:48 PM PDTOk to give 15 Units Novolog with his dinner/supper. Make sure pt will b e eating his dinner or supper. elephone Encounter - Lucia Amos RN - 05/07/2019 3:26 PM PDTPatient ca lled to say that his blood sugar was over 400 right now. It was 225 last night and it was 38 8 this morning and 400 right now. He gives himself Levemir 45u at HS and he has novolog 10u three times a day. He gave himself novolog at breakfast and at lunch. Routed to provider in PCP's absence. Okay to do 10u of novolog right now plus additional 5u for blood sugar > 300? P M PDTdocumented in this encounter Plan of Treatment +--------+ + + + + | Date | Type | Specialty | Care Team | Description | +--------+ + + + + | 10/16/ | Anti-coag | Anticoagulation | Brittany Zaragoza | | | 2019 | visit | | [address] | | | | | | [facility] | | | | | | [place] [address] | | | | | | [phone] | | | | | | | | +--------+ + + + + documented as of this encounter Visit Diagnoses Not on filedocumented in this encounter"
--- OUTSIDE RECORDS SUMMARY | ~2019-10-12 | XMS | Encounter Summary ---
Demographics + + + | Address | [address] | | | [place] [address] | + + + | Home Phone | | + + + | Preferred Language | Unknown | + + + | Marital Status | | + + + | Episcopalian Affiliation | 1027 | + + + | Race | White | + + + | Ethnic Group | Not or | + + + Author + + + | Author | [facility] | | | and [place] | + + + | Organization | [facility] | | | and [place] | + + + | Address | Unknown | + + + | Phone | Unavailable | + + + Support + + + + + | Name | Relationship | Address | Phone | + + + + + | Sammi Kohler | ECON | [place] [address] | | + + + + + Care Team Providers + +------+ + | Care Bell Valet Name | Role | Phone | + +------+ + PCP | Unavailable | + +------+ + Encounter Details +--------+ + + + + | Date | Type | Department | Care Team | Description | +--------+ + + + + | 03/30/ | Hospital | [facility] | Kwan Chao, | Chest pain; | | 2011 | Encounter | [facility] | MD [address] | Hypertension | | | | CLINICAL DECISION | [place] [address] | | | | | [address] | [phone] | | | | | [place], [place] | | | | | | [address] | | | | | | [phone] | | | +--------+ + + + [...] Progress Notes Conversion Transaction, Provider Unknown - 03/30/2011 2:32 PM PSTFormatting of this note m ight be different from the original. Progress Notes by Nicole Palmer RN at 03/30/11 1432 Author: Nicole Palmer RN Service: (none) Author Type: Registered Nurse Filed: 03/30/11 1436 Date of Service: 03/30/11 1432 Status: Signed Motor Vehicle Light Assembler: Nicole Palmer RN (Registered Nurse) Pt transported to nuclear medicine via wheelchair with transport aid. Prior to transport's arrival, pt expressed frustration with long wait and not being able to eat while waiting. Discussed with pt reason for lab draws prior to NM study, pt still very upset. Transport ar rived and pt seems to be more calm following their arrival, will re-evaluate following NM st udy. onver ivana Transaction, Provider Unknown - 03/30/2011 1:56 PM PST Progress Notes by Nir Faith RN at 03/30/11 1356 Author: Nir Faith RN Service: (none) Author Type: Registered Nurse Filed: 03/30/11 1358 Date of Service: 03/30/11 1356 Status: Signed Motor Vehicle Light Assembler: Nir Faith RN (Registered Nurse) Patient and rn homecare (Mrs Kohler) both confirm that patient is competent to sign legal consent. NIR FAITH RN onver ivana Transaction, Provider Unknown - 03/30/2011 11:17 AM PST Progress Notes by Gilberto Lama RN at 03/30/11 1117 Author: Gilberto Lama RN Service: (none) Author Type: Heel Shaver Filed: 03/30/11 1146 Date of Service: 03/30/117 Status: Signed Motor Vehicle Light Assembler: Gilberto Lama RN (Heel Shaver) Case Management: Discharge plan is to return to home and family to transport. ADL independe nt and has a PCP. No home needs identified at this time. onver ivana Transaction, Provider Unknown - 03/30/2011 7:33 AM PST Progress Notes by Yulissa Recinos RPH at 03/30/11732 Author: Yulissa Recinos RPH Service: (none) Author Type: Pharmacist Filed: 03/30/1134 Date of Service: 03/30/11732 Status: Signed Motor Vehicle Light Assembler: Yulissa Recinos RPH (Pharmacist) Renal Dosing Monitoring: Norah Gr 55 y.o. male Pharmacy dosing for renal function per Dr. Chao Medication(s): None at this time Plan per protocol: Medication / Dose: Pharmacy will continue monitoring patient for appropriate dosing per renal function. 03/30/2011 7:33 AM Pharmacist: YULISSA RECINOS RP docume nted in this encounter H&P Notes Kwan Chao MD - 03/30/2011 7:03 AM PSTFormatting of this note might be different f rom the original. H&P by Kwan Chao MD at 03/30/11702 Author: Kwan Chao MD Service: (none) Author Type: Physician Filed: 03/31/1128 Date of Service: 03/30/11702 Status: Signed Motor Vehicle Light Assembler: Kwan Chao MD (Physician) [facility] Service: Hospitalist Admission History & Physical Date of Admission: 03/30/2011 Requesting Physician: [facility] Reason for Admission: Chest pain History Obtained From: patient, er md CHIEF COMPLAINT: Chest pain HISTORY OF PRESENT ILLNESS The patient is a 55 y.o. male with significant past medical history of Past Medical History Diagnosis Date Diabetes mellitus type II Atrial fibrillation who presents with As per ER NOTE: "Chief Complaint Chief Complaint Patient presents with Chest Pain since 329 This pt is a poor historian. The patient complains of chest discomfort. This began around midnight. The pt's chest discomfort became worse at 3:30 AM. The discomfort is described as the following: "it feels like someone is pounding and sitting on my chest." This is locat ed in the center of the pt's chest. Onset of symptoms was abrupt, with a constant course si nce that time. The symptoms are described to be of severe severity. The chest pain occured while the patient was at rest. The patient also complains of the following symptoms: cough, diarrhea, and chills. The pt states "when I cough water will come up. Once it was blood." Patient's cardiac risk factors include: HTN, DM, and hx of a-fib. Care prior to arrival c onsisted of 324 ASA, with no relief. The pain is made worse by nothing and improved by noth ing. The pt has not had any NTG." In the er he was given nitro SL and reportedly had improvement in the pain room that was si gnificant down to a 2 and I was subsequently asked to admit and further work up. Patient rep orts he was to have a stress test a couple of months ago in [place], but couldn't run do to leg ashley rudd at that time. He denies NSAID use and the blood mentioned was after a lot of forcefull coughing he had a small amount of blood in the "spit" but no clear hemataemesis. . REVIEW OF SYSTEMS Review of Systems Review of Systems Constitutional: Negative for: fever, fatigue POSITIVE for chills Eyes: Negative for: decreased vision or irritated ey es Nose: Negative for: congestion Throat: Negative for: sore throat Cardiovascular/Respiratory: Negative for: shortness of breath POSITIVE for chest pain, co ugh Gastrointestinal: Negative for: abdominal pain, vomiting, black or blo juliane stools POSITIVE for diarrhea Genitourinary: Negative for: dysuria, hematuria, urinary problems Musculoskeletal: Negative for: myalgias and arthralgias Skin: Negative for: rash Neuro and psych: Negative for: fainting, head injury, seizure, trouble w alking Endocrine/Heme/Lymph: Negative for: swollen lymph nodes, easy bruising All other systems were reviewed and are reported as negative. Past Medical History Diagnosis Date Diabetes mellitus type II Atrial fibrillation History reviewed. No pertinent past surgical history. No Known Allergies Prescriptions prior to admission Medication Sig Dispense Refill ATENOLOL PO Take 100 mg by mouth. diltiazem (DILACOR XR) 120 MG 24 hr capsule Take 120 mg by mouth daily. fenofibrate (TRIGLIDE) 160 MG tablet Take 160 mg by mouth daily. glipiZIDE (GLUCOTROL) 5 MG tablet Take 5 mg by mouth 2 (two) times daily before meals. METFORMIN HCL PO Take 1,000 mg by mouth 2 (two) times daily. paroxetine (PAXIL) 40 MG tablet Take 40 mg by mouth every morning. TAMSULOSIN HCL PO Take 0.4 mg by mouth. triamterene-hydrochlorothiazide (MAXZIDE) 75-50 MG per tablet Take 1 tablet by mouth da evelia. ziprasidone (GEODON) 40 MG capsule Take 40 mg by mouth 2 (two) times daily with meals. History reviewed. No pertinent family history. History Social History Marital Status: Unknown Spouse Name: N/A Number of Children: N/A Years of Education: N/A Occupational History Not on file. Social History Main Topics Smoking status: Never Smoker Smokeless tobacco: Not on file Alcohol Use: Yes occasional Drug Use: No Sexually Active: Other Topics Concern Not on file Social History Narrative No narrative on file PHYSICAL EXAM Vital Signs: BP 131/67 | Pulse 59 | Temp(Src) 98.3 F (36.8 C) (Oral) | Resp 20 | Ht 1.803 m (5' 11") | Wt 103.42 kg (228 lb) | BMI 31.80 kg/m2 | SpO2 99% Physical Exam General: Alert, no active distress Eyes: Normal inspection, pupils equal and round, non-icteric ENT: Ears normal Nose normal Pharynx normal Neck: Normal inspection Supple Cardiovascular: Normal rate and rhythm Respiratory: Lungs are clear Abdomen: Soft, non-tender, bowel sounds normal in all quadrants No guarding or rebound Genitourinary: Deferred Rectal exam: Deferred Back: Normal inspection Skin: Warm and dry No rash Extremities: No edema Neuro: Alert, oriented x 3 No gross motor/sensory deficits DATA CBC: Lab Results Component Value Date WBC 10.1 03/30/2011 RBC 4.59 03/30/2011 HGB 13.7 03/30/2011 HCT 40.7 03/30/2011 MCV 88.7 03/30/2011 MCH 29.9 03/30/2011 MCHC 33.7 03/30/2011 RDW 42.4 03/30/2011 PLT 286 03/30/2011 MPV 7.2 03/30/2011 DIFFTYPE AUTOMATED 03/30/2011 CMP: Lab Results Component Value Date NA 144 03/30/2011 K 3.5 03/30/2011 CL 104 03/30/2011 CO2 29 03/30/2011 ANIONGAP 14 03/30/2011 GLUF 88 03/30/2011 BUN 21 03/30/2011 CREATININE 1.4 03/30/2011 BCR 15 03/30/2011 CA 9.4 03/30/2011 PROT 7.3 03/30/2011 ALB 3.4* 03/30/2011 GLOB 3.9 03/30/2011 BILITOT 0.4 03/30/2011 ALP 46 03/30/2011 AST 21 03/30/2011 ALT 20 03/30/2011 EGFR 56* 03/30/2011 Magnesium: No results found for this basename: MG Phosphorus: No results found for this basename: PHOS PT/INR: Lab Results Component Value Date INR 1.0 03/30/2011 PTT: Lab Results Component Value Date APTT 26 03/30/2011 [APTT Troponin: No results found for this basename: TROPONINI Last 3 Troponin: No results found for this basename: TROPONINI CPK: Lab Results Component Value Date CKTOTAL 123 03/30/2011 CKMB: Lab Results Component Value Date CKMB 0.9 03/30/2011 Troponin I: No results found for this basename: TROPONINI Amylase: No results found for this basename: AMYLASE Lipase: No results found for this basename: LIPASE EKG: sinus ingrid at 57, no clear st or t abnormality PROBLEM LIST Active Problems: Diabetes mellitus type II Atrial fibrillation Other chest pain ASSESSMENT & PLAN Patient Active Hospital Problem List: Other chest pain (03/30/2011) Assessment: will follow cardiac enzymes and if negative get stress test. C/w home dose a tenolol, asa. Will order ppi as also may be gi etiology Diabetes mellitus type II () Assessment: hold metformin, check a1c, ssi Atrial fibrillation () Assessment: not on anticoagulation as outpatient. Rate controlled. Request records. Disposition: Pending progress. Admitted to opo for now Code Status: Full Code Primary Care Physician: No primary provider on file. KWAN CHAO MD 03/30/2011 documented in this encounter Procedure Notes Jeni Dean ARNP - 03/30/2011 3:45 PM PSTFormatting of this note might be different fr om the original. Procedures by Jeni Dean NP at 03/30/11 1545 Author: Jeni Dean NP Service: (none) Author Type: Nurse Practitioner Filed: 03/30/11 1546 Date of Service: 03/30/11 1545 Status: Signed Motor Vehicle Light Assembler: Jeni Dean NP (Nurse Practitioner) Procedures: 1. NM CARDIOVASCULAR STRESS TEST [MNG4314 (Custom)] [facility] Service: Diagnostic Imaging/Nuclear Medicine Cardiac Stress Test Note Pharmacologic Stress test was performed utilizing [employer] with low level treadmill. Symptoms reported: Dyspnea and light headedness; resolved. Rhythm changes: None Ectopy: None ST/T wave changes: None Medications administered: Regadenoson 0.4 mg Nuclear images to follow. GUILLERMINA DEVRIES ARNP 03/30/2011 3:45 PM documented in this encounter ED Notes Jayce Parkinson PA-C - 03/31/2011 5:34 PM PST ED Provider Notes by Jayce Parkinson PA-C at 03/31/11 1738 Author: Jayce Parkinson PA-C Service: (none) Author Type: Physician Machine Assembler Supervisor - Bisi fied Filed: 03/31/11 1739 Date of Service: 03/31/11 173 Status: Signed Motor Vehicle Light Assembler: Jayce Parkinson PA-C (Physician Machine Assembler Supervisor - Certified) Related Notes: Cosigned by Norah Barker MD (Physician) filed at 04/02/11 0820 Conclusions: 1. Minimal left pleural lobe peribronchial infiltrate, nonspecific. 2. Thoracic spondylosis. 3. The remainder of the examination is unremarkable. Non-specific infiltrate on x-ray. Pt admitted and subsequently discharged with no apparent documentation by the hospitialist to address this. Contacted pt at home. He is feeling be tter, no fever or worsening cough. Instructed to follow up with pcp for recheck. Jayce Parkinson PA-C 03/31/111738 Norah Barker MD 04/02/11819 orah Barker MD - 03/31/2011 5:34 PM PST ED Provider Notes by Norah Barker MD at 03/31/111733 Author: Norah Barker MD Service: (none) Author Type: Physician Filed: 04/02/11819 Date of Service: 03/31/111733 Status: Signed Motor Vehicle Light Assembler: Norah Barker MD (Physician) Related Notes: Related Note by Jayce Parkinson PA-C (Physician Machine Assembler Supervisor - Certified) f iled at 03/31/111738 I have reviewed the note and supervised the mid-level provider. Norah Barker MD 04/02/11819 onversion Transactio n, Provider Unknown - 03/30/2011 6:16 AM PST ED Notes by Melania Hammer RN at 03/30/11615 Author: Melania Hammer RN Service: (none) Author Type: Registered Nurse Filed: 03/30/11615 Date of Service: 03/30/11615 Status: Signed Motor Vehicle Light Assembler: Melania Hammer RN (Registered Nurse) Report from EVE Mirza RN 03/30/11615 orah Lawton MD - 03/30/2011 4:29 AM PSTFormatting of this note might be different from the or iginal. ED Provider Notes by Norah Barker MD at 03/30/11428 Author: Norah Barker MD Service: (none) Author Type: Physician Filed: 03/30/11645 Date of Service: 03/30/11428 Status: Signed Motor Vehicle Light Assembler: Norah Barker MD (Physician) [facility] Department of Emergency Medicine History of Present Illness Patient Identification Norah Gr is a 55 y.o. male. Patient information was obtained from patient. History/Exam limitations: none. Patient presented to the Emergency Department by: [facility] Chief Complaint Chief Complaint Patient presents with Chest Pain since 329 This pt is a poor historian. The patient complains of chest discomfort. This began around midnight. The pt's chest discomfort became worse at 3:30 AM. The discomfort is described as the following: "it feels like someone is pounding and sitting on my chest." This is locat ed in the center of the pt's chest. Onset of symptoms was abrupt, with a constant course si nce that time. The symptoms are described to be of severe severity. The chest pain occured while the patient was at rest. The patient also complains of the following symptoms: cough, diarrhea, and chills. The pt states "when I cough water will come up. Once it was blood." Patient's cardiac risk factors include: HTN, DM, and hx of a-fib. Care prior to arrival c onsisted of 324 ASA, with no relief. The pain is made worse by nothing and improved by noth ing. The pt has not had any NTG. The pt is a local resident with good social support. PCP: No primary provider on file. Past Medical History Diagnosis Date Diabetes mellitus type II Atrial fibrillation History reviewed. No pertinent past surgical history. Prior to Admission medications Medication Sig Start Date End Date Taking? Authorizing Provider ATENOLOL PO Take by mouth. Yes Historical Provider, METFORMIN HCL PO Take by mouth. Yes Historical Provider, TAMSULOSIN HCL PO Take by mouth. Yes Historical Provider, TRIAMTERENE PO Take by mouth. Yes Historical Provider, No Known Allergies History Social History Marital Status: Unknown Spouse Name: N/A Number of Children: N/A Years of Education: N/A Occupational History Not on file. Social History Main Topics Smoking status: Never Smoker Smokeless tobacco: Not on file Alcohol Use: Yes occasional Drug Use: No Sexually Active: Other Topics Concern Not on file Social History Narrative No narrative on file History reviewed. No pertinent family history. Review of Systems Constitutional: Negative for: fever, fatigue POSITIVE for chills Eyes: Negative for: decreased vision or irritated eyes Nose: Negative for: congestion Throat: Negative for: sore throat Cardiovascular/Respiratory: Negative for: shortness of breath POSITIVE for chest pain, coug h Gastrointestinal: Negative for: abdominal pain, vomiting, black or bloody stools POSITIVE for diarrhea Genitourinary: Negative for: dysuria, hematuria, urinary problems Musculoskeletal: Negative for: myalgias and arthralgias Skin: Negative for: rash Neuro and psych: Negative for: fainting, head injury, seizure, trouble walking Endocrine/Heme/Lymph: Negative for: swollen lymph nodes, easy bruising All other systems were reviewed and are reported as negative. Physical Exam BP 162/89 | Pulse 63 | Temp(Src) 97.2 F (36.2 C) (Oral) | Resp 16 | Ht 1.803 m (5' 11") | Wt 103.42 kg (228 lb) | BMI 31.80 kg/m2 | SpO2 96% Pulse Oximetry interpretation: Normal. The pt is hypertensive, otherwise normal vital sign s. General: Alert, no active distress Eyes: Normal inspection, pupils equal and round, non-icteric ENT: Ears normal Nose normal Pharynx normal Neck: Normal inspection Supple Cardiovascular: Normal rate and rhythm Respiratory: Lungs are clear Abdomen: Soft, non-tender, bowel sounds normal in all quadrants No guarding or rebound Genitourinary: Deferred Rectal exam: Deferred Back: Normal inspection Skin: Warm and dry No rash Extremities: No edema Neuro: Alert, oriented x 3 No gross motor/sensory deficits Medical Decision Making and Emergency Department Course ED Department Course 4:26 AM The patient presents with a chief [...] troponin. Patient will be placed on the coffee maker servicer to ensure no life thre atening arrhythmia develops and will be given supplemental oxygen via nasal cannula. As th e pt has not had NTG, I will give the pt a dose under his tongue. 4:30 AM Reviewed the pt's EKG, normal aside from sinus bradycardia. My interpretation is noted bel ow. 4:49 AM Reviewed the pt's CXR. There is no evidence of pneumonia, effusion, or pneumothorax. 4:52 AM The pt's pain has improved with NTG, currently at a 2. The pt's troponin is negative, 0.00 . 5:20 AM Reviewed the pt's labs. The results are posted below. Upon review of the patient s history, physical and the results of studies I believe that the patient warrants admission to the hospital for further evaluation and treatment. I have spoken with the patient regarding the need for admission to the hospital, and the patient h as expressed understanding of this. I will call and arrange for admission at this time. 5:43 AM Discussed the case with Dr. Chao, hospitalist. Accepts the pt for admission. Will s ee the pt in the ED. There is no evidence of arrhythmia, acute AK, pneumonia, effusion, pneumothorax, anemia, le ukocytosis, thrombocytopenia, electrolyte imbalance, or liver failure. The following medications were given to the patient while in the Emergency Department sodium chloride 3 mL Intravenous Q8H Records Reviewed Nursing notes. Records unavailable. No previous ED visits for review. Laboratory Evaluation Results Procedure Component Value Ref Range Flag Date/Time Cardiac Panel [[id number]] Abnormal Collection: 03/30/11 0430 Order Status: Completed Resulted: 03/30/11 0505 WBC 10.1 4.0 - 11.0 K/uL RBC 4.59 4.30 - 5.70 M/uL HGB 13.7 13.7 - 16.7 g/dL HCT 40.7 40.0 - 50.0 % MCV 88.7 80.0 - 100.0 fl MCH 29.9 27.0 - 34.0 pg MCHC 33.7 32.0 - 35.5 g/dL RDW SD 42.4 37 - 53 fl PLT 286 150 - 400 K/uL MPV 7.2 fl DIFF TYPE AUTOMATED NEUTROPHILS 43.4 40 - 80 % LYMPHOCYTES 38.9 15 - 45 % MONOCYTES 10.7 0 - 12 % EOSINOPHILS 6.4 0 - 7 % BASOPHILS 0.6 0 - 2 % NEUTROPHILS ABS 4.4 2.0 - 7.3 K/uL LYMPHOCYTES ABS 3.9 1.0 - 3.4 K/uL H MONOCYTES ABS 1.1 0 - 0.8 K/uL H EOSINOPHILS ABS 0.6 0 - 0.5 K/uL H BASOPHILS ABS 0.1 0 - 0.1 K/uL SODIUM 144 135 - 145 mmol/L POTASSIUM 3.5 3.5 - 5.0 mmol/L CHLORIDE 104 98 - 109 mmol/L CO2 29 23 - 32 mmol/L ANION GAP AGAP 14 5 - 20 mmol/L GLUCOSE 88 65 - 99 mg/dL BUN 21 7 - 23 mg/dL CREATININE 1.4 0.7 - 1.5 mg/dL BUN/CREAT 15 CALCIUM 9.4 8.5 - 10.5 mg/dL TOTAL PROTEIN 7.3 6.4 - 8.3 g/dL Albumin 3.4 3.5 - 5.0 g/dL L GLOBULIN 3.9 1.3 - 4.9 g/dL A/G 0.9 1.0 - 2.4 L TBIL 0.4 0.1 - 1.5 mg/dL ALK PHOS 46 38 - 110 U/L AST 21 5 - 40 U/L ALT 20 5 - 50 U/L EGFR 56 >60 mL/min/1.73m2 L CPK 123 25 - 287 U/L INR 1.0 0.9 - 3.5 APTT 26 25 - 37 seconds MMB 0.9 0.5 - 3.6 ng/mL CK-MB Index 0.7 POC cardiac troponin [[id number]] Collection: 03/30/11437 Order Status: Completed Resulted: 03/30/11450 POC CARDIAC TROPONIN 0.00 0.00 - 0.10 ng/mL I personally reviewed the lab results and they have been posted to the chart. Pertinent po sitive and negative findings have been addressed appropriately. Radiology and EKG Evaluation Imaging Results XR Chest AP Portable (Preliminary result) Result time:03/30/11445 ED Interpretation Documented by Norah Barker MD (03/30/11445, [facility] Emergency Department, Emergency Medicine) This ED initial read occurred during the ED course and management, however is being recorded following the final radiology interpretation. The ED interpretation at the time the patient was being clinically managed, and prior to the radiology final read interpretation was: No acute infiltrate. No acute effusion. No cardiomegaly. Normal mediastinum. No pneumothorax. This study has been independently viewed and interpreted by myself. EKG from 04:25: Sinus bradycardia at 57 bpm. MD, QRS, QT, and axis are normal. No ST segmen t elevations or depression. No significant Q waves. Good R wave progression through the prec ordial leads. No acute ischemia. No previous EKG for comparison. This study has been inde pendently viewed and interpreted by me. ED Diagnoses Final diagnoses Chest pain Hypertension Diabetes Disposition: ED Disposition Admit/Observation Diagnosis?: chest pain r/o AK, DM, HTN Requested Unit:: Acute Care Bed request special needs: Telemetry Additional Documentation Procedures Attending Note: Documentation assistance provided by Dima Gardner (Scribe). Information recorded by the scribe has been reviewed and validated by me. Troy laughlin with its contents. MD Norah Harris MD 03/30/11 0646 documented in this en counter Plan of Treatment +--------+ + + + + | Date | Type | Specialty | Care Team | Description | +--------+ + + + + | 10/16/ | Anti-coag | Anticoagulation | Brittany Zaragoza | | | 2019 | visit | | [address] | | | | | | [address], | | | | | | [place] [address] | | | | | | [phone] | | | | | | | | +--------+ + + + + documented as of this encounter Procedures + +--------+ + + + | Procedure Name | Priori | Date/Time | Associated Diagnosis | Comments | | | ty | | | | + +--------+ + + + | NM MYOCARDIAL | Routin | 03/30/2011 | | Results for this | | PERFUSION MULT SPECT | e | 4:26 PM | | procedure are in the | | | | PST | | results section. | + +--------+ + + + | NM NUCLEAR STRESS | Routin | 03/30/2011 | | Results for this | | TEST (EXERCISE) | e | 3:44 PM | | procedure are in the | | | | PST | | results section. | + +--------+ + + + | XR CHEST 1 VIEW | Routin | 03/30/2011 | | Results for this | | | e | 4:43 AM | | procedure are in the | | | | PST | | results section. | + +--------+ + + + documented in this encounter Results NM Myocardial Perfusion Mult SPECT (03/30/2011 4:26 PM PST) + + | Specimen | + + | | + + + + + | Narrative | Performed At | + + + | HISTORY: 55-year-old male with chest pain TECHNIQUE: Stress rest | | | chemical and exercise cardiac scintigram. 9.9 mCi of technetium 99m | | | Myoview for rest imaging. Dose was 45 mCi for stress imaging. | | | Gated multiplanar and SPECT images of the heart. Chemical stress | | | agent -- .4 mg of Regadenson patient exercised for 2:03 minutes work | | | level Max METs 1.30. Heart rate of 53 vasiliy to 88 beats/min. 53% | | | maximum age-predicted heart rate. Resting blood pressure of 143/71 | | | changed to 176/82. Protocol complete. No significant arrhythmias or ST | | | segment changes. FINDINGS: End-diastolic volume at rest -- | | | 113 cc. 109 cc during stress. End systolic volume at rest -- 44 cc. | | | 45 cc during stress. Ejection fraction was 61% at rest, 59% during | | | stress. Ventricular volume was within the upper limits of but | | | normal and ejection fraction and wall motion were also normal. | | | TID. Calculated to be .99 Wall motion was normal. Cardiac | | | scintigram demonstrates some slight diaphragmatic attenuation, patient | | | could not tolerate prone imaging but this is not consequential. No | | | evidence of reversible defects over the stress portion of the | | | examination. IMPRESSION: 1. Normal chamber size, wall motion | | | and ejection fraction 2. No convincing evidence of reversibility | | | 3. Hypertension which could be independent risk factor for cardiac | | | events and other disease | | + + + + + | Procedure Note | + + | Richard, Joaquin Conversion - 09/29/2018 12:47 AM PDT HISTORY: 55-year-old male with chest | | pain TECHNIQUE: Stress rest chemical and exercise cardiac scintigram. 9.9 mCi of | | technetium 99m Myoview for rest imaging. Dose was 45 mCi for stress imaging. Gated | | multiplanar and SPECT images of the heart. Chemical stress agent -- .4 mg of | | Regadensonpatient exercised for 2:03 minutes work level Max METs 1.30. Heart rate of 53 | | vasiliy to 88 beats/min. 53% maximum age-predicted heart rate. Resting blood pressure of | | 143/71 changed to 176/82. Protocol complete. No significant arrhythmias or ST segment | | changes. FINDINGS: End-diastolic volume at rest -- 113 cc. 109 cc during stress.End | | systolic volume at rest -- 44 cc. 45 cc during stress. Ejection fraction was 61% at | | rest, 59% during stress. Ventricular volume was within the upper limits of but normal | | and ejection fraction and wall motion were also normal. TID. Calculated to be .99 Wall | | motion was normal. Cardiac scintigram demonstrates some slight diaphragmatic | | attenuation, patient could not tolerate prone imaging but this is not consequential. No | | evidence of reversible defects over the stress portion of the examination. IMPRESSION: | | 1. Normal chamber size, wall motion and ejection fraction 2. No convincing evidence of | | reversibility 3. Hypertension which could be independent risk factor for cardiac events | | and other disease | |Ventricular volume was within the upper limits of but normal and ejection fraction and wall motion were also normal. | | | |TID. Calculated to be .99 | | | |Wall motion was normal. | | | |Cardiac scintigram demonstrates some slight diaphragmatic attenuation, patient could not to lerate prone imaging but this is not consequential. No evidence of reversible defects over t he stress portion of the examination. | | | |IMPRESSION: | | | |1. Normal chamber size, wall motion and ejection fraction | | | |2. No convincing evidence of reversibility | | | |3. Hypertension which could be independent risk factor for cardiac events and other disease | | | | | + + NM Nuclear Stress Test (Exercise) (03/30/2011 3:44 PM PST) + + | Specimen | + + | | + + + + + | Narrative | Performed At | + + + | This procedure was resulted in [facility] (the cardiology system). Please | | | see the Media tab in Chart Review to see the result for this | | | procedure. | | + + + + + | Procedure Note | + + | RichardJoaquin sampson Conversion - 09/29/2018 12:48 AM PDT This procedure was resulted in [facility] | | (the cardiology system). Please seethe Media tab in Chart Review to see the result for | | this procedure. | + + XR Chest 1 Vw (03/30/2011 4:43 AM PST) + + | Specimen | + + | | + + + + + | Narrative | Performed At | + + + | [facility] X[facility] CHEST 1 VIEW 03/30/2011 4:35 AM History: 55 | | | years. Male. Acute chest pain, presenting to the emergency room. | | | Technique: AP portable upright technique was performed at 0442 hours. | | | Findings: Mild peribronchial interstitial density is noted in | | | the left lung base, nonspecific. The remaining lung kong are clear. | | | No pleural effusion visualized. Both lungs are fully inflated. The | | | cardiac volume and contour are normal. The pulmonary vasculature is | | | normal. The mediastinal contours and pulmonary veena are normal, | | | without mass. The thoracic aorta shows normal caliber, without | | | calcification or tortuosity. Mild osteophytes of the thoracic spine | | | are noted. Conclusions: 1. Minimal left pleural lobe | | | peribronchial infiltrate, nonspecific. 2. Thoracic spondylosis. 3. | | | The remainder of the examination is unremarkable. | | | | | + + + + + | Procedure Note | + + | Richard, Rad Conversion - 09/29/2018 12:47 AM PDT [facility] CHEST 1 VIEW03/30/2011 | | 4:35 AM History: 55 years. Male. Acute chest pain, presenting to the emergency room. | | Technique: AP portable upright technique was performed at 0442 hours. Findings: Mild | | peribronchial interstitial density is noted in the left lung base, nonspecific. The | | remaining lung kong are clear. No pleural effusion visualized. Both lungs are fully | | inflated. The cardiac volume and contour are normal. The pulmonary vasculature is | | normal. The mediastinal contours and pulmonary veena are normal, without mass. The | | thoracic aorta shows normal caliber, without calcification or tortuosity. Mild | | osteophytes of the thoracic spine are noted. Conclusions:1. Minimal left pleural lobe | | peribronchial infiltrate, nonspecific.2. Thoracic spondylosis.3. The remainder of the | | examination is unremarkable. | | 8:20 AM | | | |Conclusions: | |1. Minimal left pleural lobe peribronchial infiltrate, nonspecific. | |2. Thoracic spondylosis. | |3. The remainder of the examination is unremarkable. | | | | | + + documented in this encounter Visit Diagnoses + + | Diagnosis | + + | Chest pain Chest pain, unspecified | + + | Hypertension Unspecified essential hypertension | + + documented in this encounter
--- OUTSIDE RECORDS SUMMARY | ~2019-10-12 | XMS | Encounter Summary ---
Demographics + + + | Address | [address] | | | [place] [address] | + + + | Home Phone | | + + + | Preferred Language | Unknown | + + + | Marital Status | | + + + | Sikh Affiliation | 1027 | + + + | Race | White | + + + | Ethnic Group | Not or | + + + Author + + + | Author | [facility] | | | and [place] | + + + | Organization | [facility] | | | and [place] | + + + | Address | Unknown | + + + | Phone | Unavailable | + + + Support + + + + + | Name | Relationship | Address | Phone | + + + + + | Sammi Kohler | ECON | [place] [address] | | + + + + + Care Team Providers + +------+ + | Care Molder Feeder Name | Role | Phone | + +------+ + | Mik Diego DO | PCP | | + +------+ + Encounter Details +--------+ + + + + | Date | Type | Department | Care Team | Description | +--------+ + + + + | 11/01/ | Skilled | [facility] | Mireya Pack, | Type 2 diabetes | | 2019 | Nursing | [facility] [address] [facility] [address] | mellitus with | | | Facility | [address] [place], | hyperglycemia, with | | | | [place], [place] | [place] [address] | long-term current | | | | [address] | [phone] | use of insulin (HCC) | | | | [phone] | | (Primary Dx); | | | | | | Paroxysmal atrial | | | | | | fibrillation (HCC); | | | | | | Essential | | | | | | hypertension | +--------+ + + + + Social [...] + + + | Blood Pressure | 134/62 | 11/01/2018 8:26 AM | | | | | PDT | | + + + + + | Pulse | 78 | 11/01/2018 8:26 AM | | | | | PDT | | + + + + + | Temperature | 36.2 C (97.1 F) | 11/01/2018 8:26 AM | | | | | PDT | | + + + + + | Respiratory Rate | 18 | 11/01/2018 8:26 AM | | | | | PDT | | + + + + + | Oxygen Saturation | 97% | 11/01/2018 8:26 AM | | | | | PDT | | + + + + + | Inhaled Oxygen | - | - | | | Concentration | | | | + + + + + | Weight | 98 kg (216 lb) | 11/01/2018 8:26 AM | | | | | PDT | | + + + + + | Height | 180.3 cm (5' 11") | 11/01/2018 8:26 AM | | | | | PDT | | + + + + + | Body Mass Index | 30.13 | 11/01/2018 8:26 AM | | | | | PDT [...] documented as of this encounter Progress Notes Mireya Pack NP - 11/01/2018 10:15 AM PDTFormatting of this note might be different fr om the original. Subjective: Patient ID: Kevyn Guzman is a 62 y.o. male Resident of [facility] with a qualifying stay at [facility] from 10/11/18-10/16/18. Kevyn watson is a 62 y.o. male past medical history of developmental delay, COPD not on home O2, obst ructive sleep apnea noncompliant with CPAP, anxiety, depression, chronic diarrhea, type 2 di abetes mellitus not well controlled and chronic anticoagulation and weakness who had not bee n taking his medications regularly as he had lost his PCP and was stretching out all of his medications who was admitted on 10/11/2018 with complaint of chest pain, near syncope, and dys pnea, and uncontrolled hypertension and hyperglycemia, most likely secondary to him that dominique ing his medications as he should. Patient was ruled out from having LA on serial cardiac enz ymes, blood pressures and blood sugars were better controlled, [facility] and the [facility] was subsequently discharged to [facility]. Discharged to [facility] for PT/OT, medication management and group home. Past Medical History: Diagnosis Date Acute pulmonary embolism (HCC) 10/14/2017 Anxiety ARF (acute renal failure) ([facility]) 03/02/2013 Atrial fibrillation (HCC) Basal cell carcinoma 09/26/2012 arm and back COPD (chronic obstructive pulmonary disease) ([facility]) 03/02/2013 hypoxemia on 2 lts nc Depression Development delay Diabetes mellitus type II DVT (deep venous thrombosis) ([facility]) 03/29/2018 Facial droop 07/08/2013 GIB (gastrointestinal bleeding) 03/02/[address] Nur, rectal ulcers, nodule of GE junction Hypercholesterolemia 07/08/2013 Hyperlipidemia Hypertension 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 Obesity, Class I, BMI 30-34.9 07/08/2013 WARD (obstructive sleep apnea) 08/11/2012 does not use CPAP because of the noise Other chronic pain Renal failure Stroke (HCC) TIA (transient ischemic attack) Unspecified visual disturbance reading glasses Past Surgical History: Procedure Laterality Date ABDOMEN SURGERY CHOLECYSTECTOMY CHOLECYSTECTOMY, LAPAROSCOPIC 09/12/2012 Procedure: LAPAROSCOPIC - CHOLECYSTECTOMY; Surgeon: Jevon Vargas DO; Location: [facility] MAIN OR; Service: General; Laterality: N/A; COLONOSCOPY COLONOSCOPY 03/04/2013 Procedure: COLONOSCOPY; Surgeon: Howie Gibson MD; Location: [facility] ENDOSCOPY; Service: Gastroen terology; Laterality: N/A; HERNIA REPAIR 07/03/2013 Procedure: LAPAROSCOPIC - HERNIA - INCISIONAL; Surgeon: Jevon Vargas DO; Location: [facility] MAIN OR; Service: General; Laterality: N/A; KNEE SURGERY rt knee, patella LEG SURGERY LLE OTHER SURGICAL HISTORY UNLISTED PROCEDURE ARTHROSCOPY OTHER SURGICAL HISTORY Left 05/05/2014 SKIN LESION EXCISION - Procedure: EXCISION - LESION - FROZEN SECTION; Surgeon: Sy murcia MD; Location: [facility] MAIN OR; Service: Plastics; Laterality: Left; forearm SKIN BIOPSY SKIN CANCER EXCISION Left 10/10/2012 Procedure: EXCISION - SKIN CANCER; Surgeon: Sy Fierro MD; Location: [facility] MAIN OR; Service: Plastics; Laterality: Left; upper arm and upper back w/frozen section UPPER GASTROINTESTINAL ENDOSCOPY UPPER GASTROINTESTINAL ENDOSCOPY 03/03/2013 Procedure: ESOPHAGOGASTRODUODENOSCOPY; Surgeon: Howie Gibson MD; Location: [facility] ENDOSCOPY; Se rvice: Gastroenterology; Laterality: N/A; Social [...] tablet by mouth Daily. 30 tablet 0 budesonide-formoterol (SYMBICORT) 160-4.5 mcg/puff inhaler Inhale 2 puffs into the lung s 2 times daily. 1 Inhaler 0 carvedilol (COREG) 12.5 mg tablet Take 1 tablet by mouth 2 times daily (with breakfast & dinner). 60 tablet 0 fenofibrate 160 mg tablet Take 1 tablet by mouth Daily. 30 tablet 0 hydrALAZINE (APRESOLINE) 25 mg tablet Take 1 tablet by mouth 2 times daily. 60 tablet 0 insulin detemir (LEVEMIR FLEXTOUCH) 100 units/mL injection (pen) Inject 45 Units under the skin nightly. 12 mL 0 insulin lispro (HUMALOG KWIKPEN) 100 units/mL injection (pen) Inject 5 Units under the skin 3 times daily (before meals). Plus sliding scale 15 mL 0 lisinopril (PRINIVIL, ZESTRIL) 10 mg tablet Take [...] facility-administered medications for this visit. CODE: CPR, Limited HPI Patient reports blood sugar is improved and he is feeling well, motivated to work with [employer] . Needs pcp and medications in bubble pack. Patient's medications, allergies, past medical, surgical, social [...] hea. Genitourinary: Negative for difficulty urinating. Musculoskeletal: Negative for arthralgias, back pain and gait problem. Skin: Negative for rash and wound. Psychiatric/Behavioral: Negative for dysphoric mood and sleep disturbance. The patient is n ot nervous/anxious. Objective: Physical Exam Constitutional: He is oriented to person, place, and time. He appears well-developed and we ll-nourished. No distress. HENT: Head: Normocephalic and atraumatic. Mouth/Throat: Oropharynx is clear and moist. No oropharyngeal exudate. Eyes: Conjunctivae and EOM are normal. Neck: Normal range of motion. Neck supple. Cardiovascular: Normal rate, regular rhythm and normal heart sounds. Pulmonary/Chest: Effort normal and breath sounds normal. No respiratory distress. He has no wheezes. Abdominal: Soft. Bowel sounds are normal. He exhibits no distension and no mass. There is n o tenderness. There is no rebound and no guarding. No hernia. Musculoskeletal: Normal range of motion. He exhibits no edema. Neurological: He is alert and oriented to person, place, and time. C/w mild cognitive deficit Skin: Skin is warm and dry. No rash noted. He is not diaphoretic. No erythema. Psychiatric: He has a normal mood and affect. His speech is normal. Cognition and memory ar e not impaired. BP 134/62 | Pulse 78 | Temp 36.2 C (97.1 F) | Resp 18 | Ht 1.803 m (5' 11") | Wt 9 8 kg (216 lb) | SpO2 97% | BMI 30.13 kg/m Lab Results Component Value Date NA 139 10/16/2018 CL 106 10/16/2018 K 3.7 10/16/2018 CO2 27 10/16/2018 BUN 19 10/16/2018 EGFR >60 10/16/2018 GLUF 292 (H) 09/21/2018 GLOB 2.7 09/21/2018 BILITOT 0.5 09/21/2018 AST 22 10/12/2018 ALT 25 10/12/2018 Lab Results Component Value Date WBC 11.12 (H) 10/16/2018 HGB 15.3 10/16/2018 HCT 44.5 10/16/2018 MCV 83.9 10/16/2018 PLT 218 10/16/2018 Lab Results Component Value Date CHOL 166 10/12/2018 TRIG 498 (H) 10/12/2018 HDL 26 (L) 10/12/2018 LDL LDL NOT VALID WHEN TRIG >400 mg/dL 10/12/2018 Lab Results Component Value Date HBA1C 11.0 (H) 10/14/2018 No components found for: [id number], PTHINT No results found for: [id number] No results found for: TSH, T4 No results found for: IRON, TIBC, FERRITIN No results found for: FERRITIN Assessment/Plan: Diagnoses and all orders for this visit: Type 2 diabetes mellitus with hyperglycemia, with long-term current use of insulin (HCC) Improved control since compliance insulin, patient verbalizes understanding insulin adminis tration, moitoring. - Blood Glucose Monitoring Suppl (BLOOD GLUCOSE MONITOR SYSTEM) w/Device KIT; Dispense brand per patient preference - Glucose Blood (BLOOD GLUCOSE TEST STRIPS) STRP; For blood sugar testing 4 times daily - Lancets (ACCU-CHEK MULTICLIX) MISC; 1 each by Other route 4 times daily. - Insulin Pen Needle (BD PEN NEEDLE KYAW U/F) 32G X 4 MM MISC; For insulin administrati on 4 times daily Paroxysmal atrial fibrillation (HCC) Rate controlled, continue Anticoagulation Essential hypertension - Controlled. Continue current management Other orders - apixaban (ELIQUIS) 5 mg tablet; Take 1 tablet by mouth 2 times daily. - ARIPiprazole (ABILIFY) 5 mg tablet; Take 1 tablet by mouth Daily. - aspirin 81 MG tablet; Take 1 tablet by mouth Daily. - budesonide-formoterol (SYMBICORT) 160-4.5 mcg/puff inhaler; Inhale 2 puffs into the l ungs 2 times daily. - fenofibrate 160 mg tablet; Take 1 tablet by mouth Daily. - hydrALAZINE (APRESOLINE) 25 mg tablet; Take 1 tablet by mouth 2 times daily. - Cancel: insulin detemir (LEVEMIR FLEXTOUCH) 100 units/mL injection (pen); Inject 55 U nits under the skin every morning. - Cancel: insulin lispro (HUMALOG) 100 units/mL injection (vial); Inject 5 Units under the skin 3 times daily (with meals). - lisinopril (PRINIVIL, ZESTRIL) 10 mg tablet; Take 2 tablets by mouth Daily. - metFORMIN (GLUCOPHAGE) 500 mg tablet; Take 1 tablet by mouth 2 times daily (with olinda kfast & dinner). - NIFEdipine (ADALAT CC) 60 MG 24 hr tablet; Take 1 tablet by mouth Daily. - pravastatin (PRAVACHOL) 80 MG tablet; Take 1 tablet by mouth nightly. - tamsulosin (FLOMAX) 0.4 mg CAPS; Take 1 capsule by mouth 2 times daily. - insulin lispro (HUMALOG KWIKPEN) 100 units/mL injection (pen); Inject 5 Units under t he skin 3 times daily (before meals). Plus sliding scale - insulin detemir (LEVEMIR FLEXTOUCH) 100 units/mL injection (pen); Inject 45 Units und er the skin nightly. - carvedilol (COREG) 12.5 mg tablet; Take 1 tablet by mouth 2 times daily (with breakfa st & dinner). Discharge took more than 30 minutes to perform final examination, counseling and/or coordin ation of care regarding rehabilitation events/progress, discharge plan, acute and chronic di sease management, instructions for on-going care and follow-up recommendations as documente d above, as well as preparation of discharge medication list and prescriptions and discharge paperwork. Nikita Mendoza, Senior It Architect - 11/01/2018 10:15 AM PDT BP (!) 206/95 | Pulse 78 | Temp 36.2 C (97.1 F) | Resp 18 | Ht 1.803 m (5' 11") | Wt 98 kg (216 lb) | SpO2 97% | BMI 30.13 kg/m Resident progressed with in-facility PT/OT. Reports readiness to discharge to home on . Chemistry Component Value Date/Time NA 139 10/16/2018357 K 3.7 10/16/2018357 CL 106 10/16/2018357 CO2 27 10/16/2018357 GLU 175 (H) 10/16/2018357 GLU 337 (A) 10/12/2018 0823 BUN 19 10/16/2018357 CREA 0.7 10/16/2018357 ANIONGAP 10 10/16/2018 0358 Component Value Date/Time CALCIUM 8.3 (L) 10/16/2018 0358 ALKPHOS 125 (H) 10/12/2018 0327 AST 22 10/12/2018 0327 ALT 25 10/12/2018 0327 ALBUMIN 2.9 (L) 10/12/2018 0327 BILITOT 0.5 09/21/2018 1810 Lab Results Component Value Date EGFR >60 10/16/2018 GLUF 292 (H) 09/21/2018 GLOB 2.7 09/21/2018 Lab Results Component Value Date WBC 11.12 (H) 10/16/2018 HGB 15.3 10/16/2018 HCT 44.5 10/16/2018 MCV 83.9 10/16/2018 PLT 218 10/16/2018 No results found for: [id number] No results found for: FOLATE No results found for: IRON, TIBC, FERRITIN No results found for: TSH, T4 No components found for: HGBA1C Lab Results Component Value Date CHOL 166 10/12/2018 TRIG 498 (H) 10/12/2018 HDL 26 (L) 10/12/2018 LDL LDL NOT VALID WHEN TRIG >400 mg/dL 10/12/2018 No components found for: [id number], PTHINT No results found for: DIGOXIN No results found for: URICACID documented in this encounter Plan of Treatment +--------+ + + + + | Date | Type | Specialty | Care Team | Description | +--------+ + + + + | 10/16/ | Anti-coag | Anticoagulation | Brittany Zaragoza | | | 2019 | visit | | [address] | | | | | | [address] [place], | | | | | | [place] [address] | | | | | | [phone] | | | | | | | | +--------+ + + + + documented as of this encounter Visit Diagnoses + + | Diagnosis | + + | Type 2 diabetes mellitus with hyperglycemia, with long-term current use of insulin | | (HCC) - Primary | + + | Paroxysmal atrial fibrillation ([facility]) Atrial fibrillation | + + | Essential hypertension Unspecified essential hypertension | + + documented in this encounter
--- OUTSIDE RECORDS SUMMARY | ~2019-10-12 | XMS | Encounter Summary ---
Demographics + + + | Address | [address] | | | [place] [address] | + + + | Home Phone | | + + + | Preferred Language | Unknown | + + + | Marital Status | | + + + | Tenriism Affiliation | 1027 | + + + [...] | Sammi Kohler | ECON | [place] [address] | | + + + + + Care Team Providers + +------+ + | Care Barbecue Cook Name | Role | Phone | + +------+ + | Mireya Pack NP | PCP | | + +------+ + Reason for Visit + + + | Reason | Comments | + + + | Chest Pain | hx of a fib | + + + Encounter Details +--------+ + + + + | Date | Type | Department | Care Team | Description | +--------+ + + + + | 12/13/ | Emergency | [facility] | Norah Barker MD | Palpitations | | 2019 | | MEDICAL CENTER | [address] | (Primary Dx) | | | | EMERGENCY CENTER | [place] [address] | | | | | [address] | [phone] | | | | | [place], [place] | | | | | | [address] | | | | | | [phone] | | | +--------+ + + + [...] + + + | Blood Pressure | 139/64 | 12/13/2018 11:31 PM | | | | | PST | | + + + + + | Pulse | 65 | 12/13/2018 11:30 PM | | | | | PST | | + + + + + | Temperature | 36.6 C (97.9 F) | 12/13/2018 9:49 PM | | | | | PST | | + + + + + | Respiratory Rate | 16 | 12/13/2018 11:30 PM | | | | | PST | | + + + + + | Oxygen Saturation | 96% | 12/13/2018 11:30 PM | | | | | PST | | + + + + + | Inhaled Oxygen | - | - | | | Concentration | | | | + + + + + | Weight | 99.8 kg (220 lb) | 12/13/2018 9:49 PM | | | | | PST | | + + + + + | Height | 180.3 cm (5' 11") | 12/13/2018 9:49 PM | | | | | PST | | + + + + + | Body Mass Index | 30.68 | 12/13/2018 9:49 PM | | | | | PST [...] following attachments cannot be sent through Care Everywhere.Heart Palpitati ons, Understanding (Italian)documented in this encounter Medications at Time of [...] | | 0 | | | | (PRAVACHOL) 40 MG | nightly. [...] encounter ED Notes Norah Barker MD - 12/13/2018 10:17 PM PST [facility] Department of Emergency Medicine History of Present Illness Patient Identification Norah Guzman is a 62 y.o. male. Patient information was obtained from patient History/Exam limitations:none ED06/ED06 Primary Care Doctor: Mireya Pack NP Chief Complaint Chief Complaint Patient presents with Chest Pain hx of a fib Norah Guzman is a 62 y.o. male who presents with chest pain. Patient states that he thinks that he had an episode of A. fib tonight. He was sitting there relaxing and felt like his h eart started racing in his chest got tight. He denies the feeling of any palpitations at th is time but has lingering heaviness in his chest. He states that he had a similar episode y where he was admitted to the hospital overnight and discharged home this morning. Denies any fevers, chills, cough or congestion. Symptoms are worse with movement or if you push on the chest. Past Medical History: Diagnosis Date Acute pulmonary embolism (HCC) 10/14/2017 Anxiety ARF (acute renal failure) (HCC) 03/02/2013 Atrial fibrillation (HCC) Basal cell carcinoma 09/26/2012 arm and back COPD (chronic obstructive pulmonary disease) (HCC) 03/02/2013 hypoxemia on 2 lts nc Depression Development delay Diabetes mellitus type II DVT (deep venous thrombosis) ([facility]) 03/29/2018 Facial droop 07/08/2013 GIB (gastrointestinal bleeding) 03/02/[address] Nur, rectal ulcers, nodule of GE junction Hypercholesterolemia 07/08/2013 Hyperlipidemia Hypertension long-term (current) use of 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 Obesity, Class I, [...] [facility]; Service: General; Laterality: N/A; COLONOSCOPY COLONOSCOPY 03/04/2013 Procedure: COLONOSCOPY; Surgeon: Howie Gibson MD; Location: [facility]; Service: Gastroen terology; Laterality: N/A; HERNIA REPAIR 07/03/2013 Procedure: LAPAROSCOPIC - HERNIA - INCISIONAL; Surgeon: Jevon Vargas DO; Location: [facility]; Service: General; Laterality: N/A; KNEE SURGERY rt knee, patella LEG SURGERY LLE OTHER SURGICAL HISTORY UNLISTED PROCEDURE ARTHROSCOPY OTHER SURGICAL HISTORY Left 05/05/2014 SKIN LESION EXCISION - Procedure: EXCISION - LESION - FROZEN SECTION; Surgeon: Sy murcia MD; Location: [facility]; Service: Plastics; Laterality: Left; forearm SKIN BIOPSY SKIN CANCER EXCISION Left 10/10/2012 Procedure: EXCISION - SKIN CANCER; Surgeon: Sy Fierro MD; Location: [facility]; Service: Plastics; Laterality: Left; upper arm and upper back w/frozen section UPPER GASTROINTESTINAL ENDOSCOPY UPPER GASTROINTESTINAL ENDOSCOPY 03/03/2013 Procedure: ESOPHAGOGASTRODUODENOSCOPY; Surgeon: Howie Gibson MD; Location: [facility]; Se rvice: Gastroenterology; Laterality: N/A; Prior [...] Daily. 11/07/18 Yes Mireya Young do, NP aspirin 81 MG tablet Take 1 tablet by mouth Daily. 11/07/18 Yes Mireya Pack NP Blood Glucose Monitoring Suppl [...] 45 Units under the skin nightly. 11/01/18 Yes Mireya Pack NP Insulin Pen Needle (BD PEN NEEDLE KYAW U/F) 32G X 4 MM MISC For insulin administration 4 ti mes daily 11/07/18 Yes Mireya Pack NP Lancets (ACCU-CHEK MULTICLIX) MISC 1 each by Other route 4 times daily. 11/01/18 Yes Mireya Pack NP Lancets Misc. MISC For blood sugar checks 4 times daily 11/01/18 Yes Mireya Pack NP lisinopril (PRINIVIL, ZESTRIL) 10 mg tablet Take 2 tablets by mouth Daily. 11/07/18 Yes Rocco Pack NP metFORMIN (GLUCOPHAGE) 500 mg tablet Take 1 tablet by mouth 2 times daily (with breakfast & dinner). 11/07/18 Yes Mireya Pack NP NIFEdipine (ADALAT CC) 60 MG 24 hr tablet Take 1 tablet by mouth Daily. 11/07/18 Yes Mireya Pack NP pravastatin (PRAVACHOL) 40 MG tablet Take 80 mg by mouth nightly. Yes Historical Provider , tamsulosin (FLOMAX) 0.4 mg CAPS Take 1 capsule by mouth 2 times daily. 11/07/18 Yes Mireya Pack NP Allergies Allergen Reactions Nitroglycerin Swelling Tongue swelling Vitamin B12 Rash Rash Social History Tobacco Use Smoking status: Never Smoker Smokeless tobacco: Never Used Substance Use Topics Alcohol use: Yes Comment: Alcoholic Drinks/day: occassional Drug use: Never Comment: Drug use: No Family History Problem Relation Age of Onset Heart disease Father Heart disease Sister Diabetes, NIDDM Sister Other (see comment) Brother Heart Problems Past personal, family, social history noted as above and utilized in assesment and plan for mulation. Review of Systems Positive for: Chest pain, palpitations No fever, chills, nausea or vomiting. No vision changes, difficulty breathing. No headache, abdominal pain, weakness or rash. No difficulty with urination or bowel movements. No other complaints. See HPI for further relevant details. All systems otherwise negative, except as recorded above and as recorded in the HPI. Physical Exam Vitals: 12/13/18 2149 12/13/18 2230 12/13/18 2300 BP: 167/77 152/70 152/65 Pulse: 77 68 63 Resp: 20 23 17 Temp: 36.6 C (97.9 F) TempSrc: Oral SpO2: 97% 94% 95% Weight: 99.8 kg (220 lb) Height: 1.803 m (5' 11") INTERPRETATION OF VITALS Pulse Oximetry interpretation: Normal Otherwise normal PHYSICAL EXAM Appearance: Alert. No acute distress. Head: Normal external exam. Eyes: EOMI, PERRL, no scleral icterus. ENT: Normal external ENT inspection. Neck: Supple. FROM. CVS: Normal heart rate and rhythm. Heart sounds normal. Pulses normal. Respiratory: No respiratory distress. No wheezing, rales, or rhonchi. Reproducible chest wall tenderness. Abdomen: Non-distended.Soft and nontender. No rebound or guarding. Genitourinary: Deferred. Back: Moves without difficulty. Skin: Skin warm and dry. Extremities: No deformity. Neurological: Moves all extremities. No gross deficit. Medical Decision Making and Emergency Department Course ED Department Course: 22:17 Norah Guzman is a 62 y.o. male who presents with a chief complaint of recurrent chest pain and palpitations. We will repeat screening labs, ECG and monitor on telemetry. I do not f eel he requires a repeat chest x-ray compared to yesterday. ECG shows normal sinus rhythm at 77 bpm. In comparison with previous from yesterday the QT is slightly prolonged, otherwise no significant changes.. Labs unremarkable. No arrhythmia noted on telemetry. On reevaluation patient feels well and denies any chest discomfort. At this time I feel the patient is stable for outpatient management with close follow-up.Ty pical anticipatory guidelines and strict return to Emergency Department precautions have bee n given. All involved are understanding of and in agreement with this plan. All questions kelley ve been addressed to the best of my ability. Records Reviewed Old medical records. Previous electrocardiograms. Nursing notes. Previous radiology studies. Laboratory Evaluation Results Procedure Component Value Ref Range Date/Time Comprehensive Metabolic Panel [[id number]] (Abnormal) Collected: 12/13/182199 Order Status: Completed Specimen: Blood Updated: 12/13/182228 Na 142 135 - 145 mmol/L K 3.8 3.5 - 4.9 mmol/L Cl 108 99 - 109 mmol/L CO2 26 23 - 32 mmol/L Anion Gap 12 5 - 20 mmol/L Glucose 224 65 - 99 mg/dL BUN 16 8 - 25 mg/dL Creatinine 0.89 0.70 - 1.30 mg/dL BUN/Creatinine Ratio 18 Calcium 9.3 8.5 - 10.5 mg/dL Protein, Total 6.5 6.3 - 8.2 g/dL Albumin 4.0 3.3 - 4.8 g/dL Globulin 2.5 1.3 - 4.9 g/dL A/G Ratio 1.6 1.0 - 2.4 BILIRUBIN, TOTAL 0.4 0.1 - 1.5 mg/dL ALK PHOS 116 35 - 115 U/L AST 26 10 - 45 U/L ALT 18 10 - 65 U/L Estimated GFR >60 >60 mL/min/1.73m2 Troponin I [[id number]] Collected: 12/13/182199 Order Status: Completed Specimen: Blood Updated: 12/13/182228 Troponin I 0.024 0.00 - 0.04 ng/mL CBC with Differential [[id number]] (Abnormal) Collected: 12/13/182199 Order Status: Completed Specimen: Blood Updated: 12/13/182226 WBC 12.10 3.80 - 11.00 K/uL RBC 5.12 4.20 - 5.70 M/uL Hemoglobin 14.6 13.2 - 17.0 g/dL Hematocrit 41.9 39.0 - 50.0 % MCV 81.9 80.0 - 100.0 fl MCH 28.5 27.0 - 34.0 pg MCHC 34.8 32.0 - 35.5 g/dL RDW-SD 42.0 37 - 53 fl Platelet Count 253 150 - 400 K/uL MPV 7.5 fl Diff Type AUTOMATED % Neutrophils 60.54 % % Lymphocytes 23.84 % Monocyte % 8.29 % Eosinophils % 6.35 % Basophils % 0.98 % Neutrophils, Absolute 7.32 1.90 - 7.40 K/uL Absolute Lymphocytes 2.88 1.00 - 3.90 K/uL Absolute Monocytes 1.00 0.00 - 0.80 K/uL Eosinophils, Absolute 0.77 0.00 - 0.50 K/uL Basophils, Absolute 0.12 0.00 - 0.10 K/uL PTT [[id number]] Collected: 12/13/182199 Order Status: Completed Specimen: Blood Updated: 12/13/182223 PTT 27 23 - 32 seconds Protime INR [[id number]] Collected: 12/13/182199 Order Status: Completed Specimen: Blood Updated: 12/13/182219 INR 0.9 Lab Interpretation I have reviewed lab results from the emergency department workup and abnormal results have been posted to the chart. Pertinent positive and negative findings have been addressed appr opriately. Radiology and ECG Evaluation ECG from 2144: Sinus rhythm at 77 bpm. NV, QRS, and axis are normal. No ST segment elevati ons or depression. No significant Q waves. Good R wave progression through the precordial le ads. Meets No STEMI criteria for ischemia. In comparison with an old ECG from yesterday th e QT has slightly progressed, otherwise there are no significant changes. This study has bee n independently viewed and interpreted by me. Diagnosis: 1. Palpitations Disposition: ED Disposition ED Disposition Condition Comment Discharge Stable Follow up: Follow-up Information Mireya Pack NP. Specialty: Nurse Practitioner - Primary Care Contact information: [address] [facility] [id number] [facility]. Specialty: Emergency Medicine Why: If symptoms worsen Contact information: [address] [facility] [phone] Discharge Medications: ED Prescriptions None This document has been prepared with a voice recognition system. The possibility of "sound alike" police and fire dispatcher errors, addition and/or deletions may occur. If there is any question p lease contact the author of the document. Procedures Norah Barker MD 12/13/18 3628 documented in this enc ounter Plan of Treatment +--------+ + + + + | Date | Type | Specialty | Care Team | Description | +--------+ + + + + | 10/16/ | Anti-coag | Anticoagulation | Brittany Zaragoza | | | 2019 | visit | | [address] | | | | | | [address] [facility], | | | | | | [place] [address] | | | | | | [phone] | | | | | | | | +--------+ + + + + + +------+--------+ + + | Name | Type | Priori | Associated Diagnoses | Date/Time | | | | ty | | | + +------+--------+ + + | ED INFORMATION | COLTON | Routin | | 12/13/2018 9:45 PM | | EXCHANGE | | e | | PST | + +------+--------+ + + documented as of this encounter Procedures + +--------+ + + + | Procedure Name | Priori | Date/Time | Associated Diagnosis | Comments | | | ty | | | | + +--------+ + + + | TROPONIN I | Routin | 12/13/2018 | | Results for this | | | e | 10:00 PM | | procedure are in the | | | | PST | | results section. | + +--------+ + + + | PTT | STAT | 12/13/2018 | | Results for this | | | | 10:00 PM | | procedure are in the | | | | PST | | results section. | + +--------+ + + + | PROTIME INR | STAT | 12/13/2018 | | Results for this | | | | 10:00 PM | | procedure are in the | | | | PST | | results section. | + +--------+ + + + | CBC WITH | STAT | 12/13/2018 | | Results for this | | DIFFERENTIAL | | 10:00 PM | | procedure are in the | | | | PST | | results section. | + +--------+ + + + | COMPREHENSIVE | STAT | 12/13/2018 | | Results for this | | METABOLIC PANEL | | 10:00 PM | | procedure are in the | | | | PST | | results section. | + +--------+ + + + | ED INFORMATION | Routin | 12/13/2018 | | | | EXCHANGE | e | 9:45 PM | | | | | | PST | | | + +--------+ + + + +---+--------+ | | | | | Proced | | | ure | | | Note - | | | Richard, | | | Lab In | | | | | | Hlseve | | | n - | | | | | | 2018 | | | 9:46 | | | PM PST | | [...] ON?/ | | | | | | 9 | | | 21:45? | | | SIMÓN, | | | NORAH | | | | | | M?MRN: | | | | | | [id number] | | | [id number] | | | riteri | | | [...] | | | Center | | | 12 0 | | | [place] | | [...] | | int | | | Nov 7, | | | 2019 | | | [facility] | | | | | | Region | | | al | | | [facility] | | | [place] | | | [place] | | | Emerge | | | ncy | | | Chest | | | Pain | | | Nov | | | [...] | | | a | | | Recent | | | [...] | | s [facility] | | | [place] | | | [place] | | | [...] | | | /notif | | | [id number] | | | [id number] | | | [id number] | | | [id number] | | | 0-[id number] | | | [id number] | | | 08 | | | PLEASE | | | [...] | | | m | +---+--------+ + +------+ +---+ + | ECG 12 LEAD | STAT | 12/13/2018 | | Results for this | | | | 9:45 PM | | procedure are in the | | | | PST | | results section. | + +------+ +---+ + documented in this encounter Results Troponin I (12/13/2018 10:00 PM PST) + + + + + + | Component | Value | Ref Range | Performed | Pathologist | | | | | At | Signature | + + + + + + | Troponin I | 0.024Comment: 0.04 | 0.00 - 0.04 | [facility] [...] at | | | | | | [facility];[address] | | | | | | [address];[place] [address] | | | | + + + + + + + + | Specimen | + + | Blood | + + + + + + + | Performing | Address | City/State/Zipcode | Phone Number | | Organization | | | | + + + + + | [facility] | [address] | [place] [address] | [phone] | + + + + + PTT (12/13/2018 10:00 PM PST) + + + + + + | Component | Value | Ref Range | Performed | Pathologist | | | | | At | Signature | + + + + + + | PTT | 27Comment: Testing | 23 - 32 seconds | LUIS ALBERTO | | | | performed at [facility];[address] | | LABORATORY | | | | [address];[place] | | | | | | [address] | | | | + + + + + + + + | Specimen | + + | Blood | + + + + + + + | Performing | Address | City/State/Zipcode | Phone Number | | Organization | | | | + + + + + | [facility] | [address] | [place] [address] | [phone] | + + + + + Protime INR (12/13/2018 10:00 PM PST) + + + + + [...] | | | | | performed at [facility] | | | | | | [address];[place], [place] | | | | | | [address] | | | | + + + + + + + + | Specimen | + + | Blood | + + + + + + + | Performing | Address | City/State/Zipcode | Phone Number | | Organization | | | | + + + + + | [facility] | [address] | [place] [address] | [phone] | + + + + + Comprehensive Metabolic Panel (12/13/2018 10:00 PM PST) + + + + + + | Component | Value | Ref Range | Performed | Pathologist | | | | | At | Signature | + + + + + + | Na | 142 | 135 - 145 | [facility] | [...] + + + + | Glucose | 224 (H) | 65 - 99 mg/dL | [facility] | | | | | | LABORATORY | | + + + + + + | BUN | 16 | 8 - 25 mg/dL | [facility] [...] + + + + | Protein, | 6.5 | 6.3 - 8.2 g/dL | [facility] | | | Total | | | LABORATORY | | + + + + + + | Albumin | 4.0 | 3.3 - 4.8 g/dL | [facility] | | | | | | LABORATORY | | + + + + + + | Globulin | 2.5 | 1.3 - 4.9 g/dL | [facility] [...] + + + | ALK PHOS | 116 (H) | 35 - 115 U/L | [facility] | | | | | | LABORATORY | | + + + + + + | AST | 26 | 10 - 45 U/L | [facility] | | | | | | LABORATORY | | + + + + + + | ALT | 18 | 10 - 65 U/L | [facility] | | | | | | LABORATORY | | + + + + + + | Estimated | >60Comment: GFR <60: | >60 | [facility] | | | GFR | CHRONIC KIDNEY [...] | | | | | | MDRD IDDE traceable | | | | | | equation.Testing | | | | | | performed at [facility] | | | | | | [facility];[place], [place] | | | | | | [address] | | | | + + + + + + + + | Specimen | + + | Blood | + + + + + + + | Performing | Address | City/State/Zipcode | Phone Number | | Organization | | | | + + + + + | [facility] | [address] | [place] [address] | [phone] | + + + + + CBC with Differential (12/13/2018 10:00 PM PST) + + + + + + | Component | Value | Ref Range | Performed | Pathologist | | | | | At | Signature | + + + + + + | WBC | 12.10 (H) | 3.80 - 11.00 | [facility] | | | | | K/uL | LABORATORY | | + + + + + + | Red Blood | 5.12 | 4.20 - 5.70 | [facility] | | | Cells | | M/uL | LABORATORY | | + + + + + + | Hemoglobin | 14.6 | 13.2 - 17.0 | [facility] | | | | | g/dL | LABORATORY | | + + + + + + | Hematocrit | 41.9 | 39.0 - 50.0 % | [facility] | | | | | | LABORATORY | | + + + + + + | MCV | 81.9 | 80.0 - 100.0 fl | [facility] | | | | | | LABORATORY | | + + + + + + | MCH | 28.5 | 27.0 - 34.0 pg | [facility] | | | | | | LABORATORY | | + + + + + + | MCHC | 34.8 | 32.0 - 35.5 | [facility] | [...] + + + + | MPV | 7.5 | fl | [facility] | | | | | | LABORATORY | | + + + + + + | Diff Type | AUTOMATED | | [facility] | | | | | | LABORATORY | | + + + + + + | % | 60.54 | % | [facility] | | | Neutrophils | | | LABORATORY | | + + + + + + | % | 23.84 | % | [facility] | | | Lymphocytes | | | LABORATORY | | + + + + + + | Monocyte % | 8.29 | % | [facility] | | | | | | LABORATORY | | + + + + + + | Eosinophils | 6.35 | % | [facility] | | | % | | | LABORATORY | | + + + + + + | Basophils % | 0.98 | % | [facility] | | | | | | LABORATORY | | + + + + + + | Neutrophils | 7.32 | 1.90 - 7.40 | [facility] | | | , Absolute | | K/uL | LABORATORY | | + + + + + + | Absolute | 2.88 | 1.00 - 3.90 | [facility] | | | Lymphocytes | | K/uL | LABORATORY | | + + + + + + | Absolute | 1.00 (H) | 0.00 - 0.80 | [facility] | | | Monocytes | | K/uL | LABORATORY | | + + + + + + | Eosinophils | 0.77 (H) | 0.00 - 0.50 | [facility] | | | , Absolute | | K/uL | LABORATORY | | + + + + + + | Basophils, | 0.12 (H)Comment: Testing | 0.00 - 0.10 | [facility] | | | Absolute | performed at [facility];[address] | [address] | LABORATORY | | | | [address];[place] | | | | | | [address] | | | | + + + + + + + + | Specimen | + + | Blood | + + + + + + + | Performing | Address | City/State/Zipcode | Phone Number | | Organization | | | | + + + + + | [facility] | [address] | [place] [address] | [phone] | + + + + + ECG 12 lead (12/13/2018 9:45 PM PST) + + + + + [...] + + + + | P-R | 158 | ms | [facility] | | | INTERVAL | | | | | + + + + + + | QRS | 80 | ms | [facility] | | | DURATION | | | | | + + + + + + | Q-T | 424 | ms | [facility] | | | INTERVAL | | | | | + + + + + + | Q-T | 479 | ms | [facility] | | | INTERVAL | | | | | | (CORRECTED) | | | | | + + + + + + | P WAVE AXIS | 47 | degrees | [facility] | | + + + + + + | QRS AXIS | 50 | degrees | [facility] | | + + + + + + | T AXIS | 28 | degrees | [facility] | | + + + + + + | INTERPRETAT | Normal sinus | | [facility] | | | ION TEXT | rhythmPossible Left | | | | | | atrial | | | | | | enlargementNonspecific T | | | | | | wave | | | | | | abnormalityProlonged | | | | | | QTAbnormal ECGWhen | | | | | | compared with ECG of | | | | | | 12-DEC-2018 | | | | | | 09:30,Premature atrial | | | | | | complexes are no longer | | | | | | PresentNonspecific T | | | | | | wave abnormality now | | | | | | evident in Inferior | | | | | | leadsConfirmed by MUSE | | | | | | READ ONLY, -COMPUTER | | | | | | ([phone]), content editor Rodney, | | | | | | Roberto Sánchez ([id number]) on | | | | | | 12/14/2018 3:00:15 AM | | | | + + [...] + | Diagnosis | + + | Palpitations - Primary | + + documented in this encounter Administered Medications + +--------+ +--------+------+------+ | Medication Order | MAR | Action | Dose | Rate | Site | | | Action | Date | | | | + +--------+ +--------+------+------+ | aspirin chewable tablet 324 mg | Given | 12/14/19 | 324 mg | | | | 324 mg, Oral, ONCE, [facility] 12/13/18 | | 19 10:21 | | | | | at 2205, For 1 dose, Unless given | | PM PST | | | | | prior to arrival, | | | | | | + +--------+ +--------+------+------+ +---+---+ | | | +---+---+ documented in this encounter
--- OUTSIDE RECORDS SUMMARY | ~2019-10-12 | XMS | Encounter Summary ---
Demographics + + + | Address | [address] | | | [place] [address] | + + + | Home Phone | | + + + | Preferred Language | Unknown | + + + | Marital Status | | + + + | Restoration Affiliation | 1027 | + + + | Race | White | + + + | Ethnic Group | Not or | + + + Author + + + | Author | [facility] | | | and [place] | + + + | Organization | [facility] | | | and [place] | + + + | Address | Unknown | + + + | Phone | Unavailable | + + + Support + + + + + | Name | Relationship | Address | Phone | + + + + + | Sammi Kohler | ECON | [place] [address] | | + + + + + Care Team Providers + +------+ + | Care Electrophysiology Tech Name | Role | Phone | + +------+ + PCP | Unavailable | + +------+ + Encounter Details +--------+ + + + + | Date | Type | Department | Care Team | Description | +--------+ + + + + | 12/16/ | Emergency | [facility] | | | | 2014 | | [facility] | | | | | | EM[facility]Y CENTER | | | | | | [address] | | | | | | [place], [place] | | | | | | [address] | | | | | | [phone] | | | +--------+ + + + [...] | | | | | | [place] [address] | | | | | | [phone] | | | | | | | | +--------+ + + + + documented as of this encounter Visit Diagnoses Not on filedocumented in this encounter"
--- OUTSIDE RECORDS SUMMARY | ~2019-10-12 | XMS | Encounter Summary ---
Demographics + + + | Address | [address] | | | [place] [address] | + + + | Home Phone | | + + + | Preferred Language | Unknown | + + + | Marital Status | | + + + | Anglican Affiliation | 1027 | + + + [...] | Sammi Kohler | ECON | [place] [address] | | + + + + + Care Team Providers + +------+ + | Care Organizational Effectiveness Director Name | Role | Phone | [...] + + | 05/12/ | Emergency | [facility] | Norah Calvo, | Type 2 diabetes | | 2020 | | MEDICAL CENTER | [address] | mellitus with | | | | EMERGENCY CENTER | [place] [address] | hyperglycemia, with | | | | [address] | [phone] | long-term current | | | | [place], [place] | | use of insulin (HCC) | | | | [address] | | (Primary Dx) | | | | [phone] | | | +--------+ + + + [...] + + + | Blood Pressure | 156/73 | 05/13/2019 12:29 PM | | | | | PDT | | + + + + + | Pulse | 82 | 05/13/2019 12:29 PM | | | | | PDT | | + + + + + | Temperature | 36.3 C (97.3 F) | 05/13/2019 12:39 PM | | | | | PDT | | + + + + + | Respiratory Rate | 22 | 05/13/2019 12:39 PM | | | | | PDT | | + + + + + | Oxygen Saturation | 97% | 05/13/2019 12:29 PM | | | | | PDT | | + + + + + | Inhaled Oxygen | - | - | | | Concentration | | | | + + + + + | Weight | 105.6 kg (232 lb | 05/13/2019 11:16 AM | | | | 12.9 oz) | PDT | | + + + + + | Height | 180.3 cm (5' 11") | 05/13/2019 11:16 AM | | | | | PDT | | + + + + + | Body Mass Index | 32.47 | 05/13/2019 11:16 AM | | | | | PDT [...] following attachments cannot be sent through Care Everywhere.Diabetes and He art Disease ([place])Hyperglycemia (High Blood Sugar) ([place])documented in this encounter Medications at Time of [...] as of this encounter ED Notes Norah Calvo MD - 05/13/2019 1:02 PM PDTFormatting of this note might be different jacqueline m the original. [facility] Department of Emergency Medicine History of Present Illness Patient Identification Norah Andrea Siómn is a 63 y.o. male. Patient presented to the Emergency Department by: Ambulance Chief Complaint Chief Complaint Patient presents with High Blood Sugar (Symptomatic) 63 y.o. male presenting with a chief complaint of hyperglycemia Location: general Onset/Duration: today Quality: elevated Severity: moderate Context: The patient reports that at home today he had blood sugars in the 480s. He took s ome subcu insulin and the blood sugar was not coming down. He was advised by PCP to come in for evaluation. He denies any chest pain, shortness of breath, vomiting, diarrhea. PCP: Holly Pack NP Past Medical History: Diagnosis Date Acute pulmonary embolism (HCC) 10/14/2017 Anxiety ARF (acute renal failure) (HCC) 03/02/2013 Atrial fibrillation (HCC) Basal cell carcinoma 09/26/2012 arm and back COPD (chronic obstructive pulmonary disease) (HCC) 03/02/2013 hypoxemia on 2 lts nc Depression Development delay Diabetes mellitus type II DVT (deep venous thrombosis) ([facility]) 03/29/2018 Facial droop 07/08/2013 GIB (gastrointestinal [...] Location: [facility]; Service: Gastroen terology; Laterality: N/A; HERNIA REPAIR 07/03/2013 Procedure: LAPAROSCOPIC - HERNIA - INCISIONAL; Surgeon: Jevon Vargas DO; Location: [facility]; Service: General; Laterality: N/A; KNEE SURGERY rt knee, patella LEG SURGERY LLE OTHER SURGICAL HISTORY UNLISTED PROCEDURE ARTHROSCOPY OTHER SURGICAL HISTORY Left 05/05/2014 SKIN LESION EXCISION - Procedure: EXCISION - LESION - FROZEN SECTION; Surgeon: Sy murcia MD; Location: [facility]; Service: Plastics; Laterality: Left; forearm SKIN BIOPSY SKIN CANCER EXCISION Left 10/10/2012 Procedure: EXCISION - SKIN CANCER; Surgeon: Sy Fierro MD; Location: [facility]; Service: Plastics; Laterality: Left; upper arm and upper back w/frozen section UPPER GASTROINTESTINAL ENDOSCOPY UPPER GASTROINTESTINAL ENDOSCOPY 03/03/2013 Procedure: ESOPHAGOGASTRODUODENOSCOPY; Surgeon: Howie Gibson MD; Location: [facility]; Se rvice: Gastroenterology; Laterality: N/A; [...] tablet by mouth 2 times daily. 11/07/18 Holly artis NP ARIPiprazole (ABILIFY) 5 mg tablet Take 1 tablet by mouth Daily. 11/07/18 Holly Pack NP aspirin 81 MG tablet Take 81 mg by mouth Daily as needed for Fever. Historical Provider, atorvaSTATin (LIPITOR) 40 mg tablet Take 1 tablet by mouth nightly. 12/26/18 Holly artis NP Blood Glucose Monitoring Suppl (BLOOD GLUCOSE MONITOR SYSTEM) w/Device KIT Dispense brand p er patient preference 04/18/19 Holly Pack NP budesonide-formoterol (SYMBICORT) 160-4.5 mcg/puff inhaler Inhale 2 puffs into the lungs 2 times daily. 11/01/18 11/01/19 Holly Pack NP carvedilol (COREG) 12.5 mg tablet Take 1 tablet by mouth 2 times daily (with breakfast & di nner). 11/07/18 Holly Pack NP finasteride (PROSCAR) 5 mg tablet Take 1 tablet by mouth Daily. 11/07/18 Holly Pack NP Glucose Blood (BLOOD GLUCOSE TEST STRIPS) STRP For blood sugar testing 4 times daily 0 Holly Pack NP hydrALAZINE (APRESOLINE) 25 mg tablet Take 1 tablet by mouth 2 times daily. 11/07/18 Holly Pack NP insulin aspart (NOVOLOG FLEXPEN) 100 units/mL injection pen Inject 10 Units under the skin 3 times daily (before meals). Plus 5 units if > 300 03/27/19 Holly Pack NP insulin detemir (LEVEMIR FLEXTOUCH) 100 units/mL injection (pen) Inject 45 Units under the skin nightly. 03/27/19 Holly Pack NP Insulin Pen Needle (BD PEN NEEDLE KYAW U/F) 32G X 4 MM MISC For insulin administration 4 ti mes daily 11/07/18 Holly Pack NP Lancets (ACCU-CHEK MULTICLIX) MISC 1 each by Other route 4 times daily. 04/18/19 Holly malave NP lisinopril (PRINIVIL,ZESTRIL) 40 MG tablet Take 1 tablet by mouth Daily. 03/27/19 Holly Pack NP meclizine (ANTIVERT) 25 mg tablet Take 1 tablet by mouth 3 times daily as needed. 03/27/19 Holly Pack NP metFORMIN (GLUCOPHAGE) 500 mg tablet Take 1 tablet by mouth 2 times daily (with breakfast & dinner). 11/07/18 Holly Pack NP NIFEdipine (ADALAT CC) 60 MG 24 hr tablet Take 1 tablet by mouth Daily. 11/07/18 Holly malave NP omeprazole (PRILOSEC) 20 mg capsule Take 1 capsule by mouth every morning (before breakfast ). 12/26/18 Holly Pack NP tamsulosin (FLOMAX) 0.4 mg CAPS Take 1 capsule by mouth 2 times daily. 11/07/18 Holly ruvalcaba NP Allergies Allergen Reactions Nitroglycerin Swelling [...] file Gets together: Not on file Attends [employer] service: Not on file Active member of [...] Lives alone x 1 wk, moved from [facility], , 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 2 falls in the last 6 months. Family History Problem Relation Age of Onset Heart disease Father Heart disease Sister Diabetes, NIDDM Sister Other (see comment) Brother Heart Problems Review of Systems Constitutional: Negative for fever Eyes: Negative for vision changes ENT: Negative for earache CV Negative for chest pain, Resp: Negative for pjaslpafz-yr-hgycvw GI: Negative for abdominal pain, vomiting : Negative for urinary problems Musculoskeletal: Negative for ext pain Skin: Negative for rash Neuro/Psych: Negative for headache Physical Exam Temp: 36.6 C (97.8 F) Pulse: 84 Resp: 20 BP: 182/77 SpO2: 98 % Vital signs interpretation: Hypertensive General: Alert, in no apparent distress Eyes: Normal inspection, pupils equal and round, non-icteric ENT: MMM, NCAT Neck: Normal inspection, Supple CV: Rate and rhythm normal, no murmurs Respiratory: Lungs clear to auscultation bilaterally, Normal WOB Abdomen: Soft, non-tender, non-distended, No rebound or guarding Ext: No edema or trauma noted Skin: Warm and dry, No rash Neuro: Normal facial symmetry, Moving extremities spontaneously Medical Decision Making and Emergency Department Course ED Department Course Patient presents to ED with complaints of hyperglycemia. Labs/EKG/Imaging: The patient's blood sugars were elevated into the 300s. On rechecks the blood sugars come down to 238. The patient was stable. He was given 1 L of IV fluids. I felt discharge was appropriate. I discussed all ED results and my clinical impression with the patient. Patient is ready fo r discharge. I advised patient to follow up with a PCP and we discussed the emergent signs a nd symptoms that would necessitate a return to ED. All questions and concerns addressed. Vitals: 05/13/19 1116 05/13/19 1229 05/13/19 1239 BP: 182/77 156/73 Pulse: 84 82 Resp: 20 22 Temp: 36.6 C (97.8 F) 36.3 C (97.3 F) TempSrc: Oral Oral SpO2: 98% 97% Weight: 105.6 kg (232 lb 12.9 oz) Height: 1.803 m (5' 11") Medications sodium chloride 0.9% (NS) bolus 1,000 mL (0 mLs Intravenous Stopped 05/13/19 1233) Records Reviewed Old Medical Records Laboratory Evaluation Results Procedure Component Value Ref Range Date/Time POC Glucose [[id number]] (Abnormal) Collected: 05/13/19 1218 Order Status: Completed Updated: 05/13/19 1220 Glucose, POC 238 65 - 99 mg/dL Comprehensive Metabolic Panel [[id number]] (Abnormal) Collected: 05/13/19 1114 Order Status: Completed Specimen: Blood Updated: 05/13/19 1154 Na 136 135 - 145 mmol/L K 3.5 3.5 - 4.9 mmol/L Cl 101 99 - 109 mmol/L CO2 25 23 - 32 mmol/L Anion Gap 14 5 - 20 mmol/L Glucose 315 65 - 99 mg/dL BUN 23 8 - 25 mg/dL Creatinine 1.12 0.70 - 1.30 mg/dL BUN/Creatinine Ratio 21 Calcium 10.0 8.5 - 10.5 mg/dL Protein, Total 7.1 6.3 - 8.2 g/dL Albumin 4.4 3.3 - 4.8 g/dL Globulin 2.7 1.3 - 4.9 g/dL A/G Ratio 1.6 1.0 - 2.4 BILIRUBIN, TOTAL 0.7 0.1 - 1.5 mg/dL ALK PHOS 162 35 - 115 U/L AST 26 10 - 45 U/L ALT 24 10 - 65 U/L Estimated GFR >60 >60 mL/min/1.73m2 CBC with Differential [[id number]] (Abnormal) Collected: 05/13/19 1114 Order Status: Completed Specimen: Blood Updated: 05/13/19 1139 WBC 15.95 3.80 - 11.00 K/uL RBC 5.68 4.20 - 5.70 M/uL Hemoglobin 15.9 13.2 - 17.0 g/dL Hematocrit 46.9 39.0 - 50.0 % MCV 82.6 80.0 - 100.0 fl MCH 28.0 27.0 - 34.0 pg MCHC 33.9 32.0 - 35.5 g/dL RDW-SD 38.2 37 - 53 fl Platelet Count 259 150 - 400 K/uL MPV 9.7 fl Diff Type AUTOMATED % nRBC 0.0 0 /100WBC % Neutrophils 71.40 % IMMATURE GRANULOCYTE 0.80 % % Lymphocytes 15.40 % Monocyte % 7.30 % Eosinophils % 4.60 % Basophils % 0.50 % Neutrophils, Absolute 11.38 1.90 - 7.40 K/uL IMMATURE GRANS AB 0.13 0.00 - 0.07 K/uL Absolute Lymphocytes 2.46 1.00 - 3.90 K/uL Absolute Monocytes 1.17 0.00 - 0.80 K/uL Eosinophils, Absolute 0.73 0.00 - 0.50 K/uL Basophils, Absolute 0.08 0.00 - 0.10 K/uL I personally reviewed the lab results and they have been posted to the chart. Pertinent po sitive and negative findings have been addressed appropriately. Radiology Evaluation Imaging Results None Discharge Diagnosis: 1. Type 2 diabetes mellitus with hyperglycemia, with long-term current use of insulin (HCC) Disposition: ED Disposition Discharge Stable Follow-up Information Schedule an appointment as soon as possible for a visit with Holly Pack NP. Specialty: Nurse Practitioner - Primary Care Contact information: [address] [facility] [address] [facility] [address] [facility]. Specialty: Emergency Medicine Why: If symptoms worsen Contact information: [address] [facility] [address] Discharge Medications: Discharge Medication List as of 05/13/2019 12:36 PM Dictation software, [employer], used which may contain error for similar sounding words even af ter review. Personal communication requested for any clarification. MD Norah Galloway MD 05/13/19 1306 ohn Philippe RN - 05/13/2019 12:33 PM PDTDial a ride will be arranged for patient transport home. Electronic ally signed by John Philippe RN at 05/13/2019 12:34 PM PDTinJenniffer kemp RN - 07/2019 11:15 AM PDTBed: ED11 Expected date: Expected time: Means of arrival: Comments: 1823 documented in th is encounter Plan of [...] [place], | | | | | | [place] [address] | | | | | | [phone] | | | | | | | | +--------+ + + + + + +------+--------+ + + | Name | Type | Priori | Associated Diagnoses | Date/Time | | | | ty | | | + +------+--------+ + + | ED INFORMATION | COLTON | Routin | | 05/13/2019 11:16 AM | | EXCHANGE | | e | | PDT | + +------+--------+ + + documented as of this encounter Procedures + +--------+ + + + | Procedure Name | Priori | Date/Time | Associated Diagnosis | Comments | | | ty | | | | + +--------+ + + + | POC GLUCOSE (NON | Routin | 05/13/2019 | | Results for this | | ORD) | e | 12:18 PM | | procedure are in the | | | | PDT | | results section. | + +--------+ + + + | ED INFORMATION | Routin | 05/13/2019 | | | | EXCHANGE | e | 11:16 AM | | | | | | PDT | | | + +--------+ + + + +---+--------+ | | | | | Proced | | | ure | | | Note - | | | Richard, | | | Lab In | | | | | | Hlseve | | | n - | | | 05/12/ | | | 2019 | | | 11:17 | | | AM PDT | | [...] | | | 0 | | | 11:15? | | | SIMÓN, | | | NORAH | | | | | | M?MRN: | | | | | | [id number] | | | [id number] | | | riteri | | | [...] | | int | | | Apr 6, | | [...] | | omatic | | | ) Mar | | | 7, | | [...] | | [facility] | | | [place] | | | [place] | | | [...] | | | [place] | | | [employer] | | | al | | [...] | | | [place], | | | FISHING GUIDE | | | Nurse | | | [...] | | | /notif | | | [id number] | | | [id number] | | | [id number] | | | [id number] | | | [id number] | | | [id number] | | | 48 | | | PLEASE | | | [...] | +---+--------+ + +------+ +---+ + | CBC WITH | STAT | 05/13/2019 | | Results for this | | DIFFERENTIAL | | 11:14 AM | | procedure are in the | | | | PDT | | results section. | + +------+ +---+ + | COMPREHENSIVE | STAT | 05/13/2019 | | Results for this | | METABOLIC PANEL | | 11:14 AM | | procedure are in the | | | | PDT | | results section. | + +------+ +---+ + documented in this encounter Results POC Glucose (05/13/2019 12:18 PM PDT) + + + + + + | Component | Value | Ref Range | Performed | Pathologist | | | | | At | Signature | + + + + + + | Glucose, | 238 (H)Comment: Testing | 65 - 99 mg/dL | [facility] | | | POC | performed at [facility];[address] | | LABORATORY | | | | [address];[place], [place] | | | | | | [address] | | | | + + + + + + + + | Specimen | + + | | + + + + + + + | Performing | Address | City/State/Zipcode | Phone Number | | Organization | | | | + + + + + | [facility] | [address] | [place] [address] | [phone] | + + + + + Comprehensive Metabolic Panel (05/13/2019 11:14 AM PDT) + + + + + [...] + + + + | Cl | 101 | 99 - 109 mmol/L | [facility] [...] + + + + | Glucose | 315 (H) | 65 - 99 mg/dL | [facility] | | | | | | LABORATORY | | + + + + + + | BUN | 23 | 8 - 25 mg/dL | [facility] | | | | | | LABORATORY | | + + + + + + | Creatinine | 1.12 | 0.70 - 1.30 | [facility] | | | | | mg/dL | LABORATORY | | + + + + + + | BUN/Creatin | 21 | | [facility] | | | ine Ratio | | | LABORATORY | | + + + + + + | Calcium | 10.0 | 8.5 - 10.5 | [facility] | | | | | mg/dL | LABORATORY | | + + + + + + | Protein, | 7.1 | 6.3 - 8.2 g/dL | [facility] | | | Total | | | LABORATORY | | + + + + + + | Albumin | 4.4 | 3.3 - 4.8 g/dL | [facility] [...] 24 | 10 - 65 U/L | [facility] | | | | | | LAB[facility]ATORY | | + + + + + + | Estimated | >60Comment: GFR <60: | >60 | [facility] | | | GFR | CHRONIC KIDNEY [...] performed at [facility];[address] | | | | | | [facility];[place], [place] | | | | | | [address] | | | | + + + + + + + + | Specimen | + + | Blood | + + + + + + + | Performing | Address | City/State/Zipcode | Phone Number | | Organization | | | | + + + + + | [facility] | [address] | [place] [address] | [phone] | + + + + + CBC with Differential (05/13/2019 11:14 AM PDT) + + + + + + | Component | Value | Ref Range | Performed | Pathologist | | | | | At | Signature | + + + + + + | WBC | 15.95 (H) | 3.80 - 11.00 | [facility] | | | | | K/uL | LABORATORY | | + + + + + + | Red Blood | 5.68 | 4.20 - 5.70 | [facility] | | | Cells | | M/uL | LABORATORY | | + + + + + + | Hemoglobin | 15.9 | 13.2 - 17.0 | [facility] | | | | | g/dL | LABORATORY | | + + + + + + | Hematocrit | 46.9 | 39.0 - 50.0 % | [facility] [...] + + + + | MCHC | 33.9 | 32.0 - 35.5 | [facility] | | | | | g/dL | LABORATORY | | + + + + + + | RDW-SD | 38.2 | 37 - 53 fl | [facility] | | | | | | LABORATORY | | + + + + + + | Platelet | 259 | 150 - 400 K/uL | [facility] [...] + + + + | % | 71.40 | % | [facility] | | | Neutrophils | | | LABORATORY | | + + + + + + | IMMATURE | 0.80 | % | [facility] | | | GRANULOCYTE | | | LABORATORY | | + + + + + + | % | 15.40 | % | [facility] | | | Lymphocytes | | | LABORATORY | | + + + + + + | Monocyte % | 7.30 | % | [facility] | | | | | | LABORATORY | | + + + + + + | Eosinophils | 4.60 | % | [facility] | | | % | | | LABORATORY | | + + + + + + | Basophils % | 0.50 | % | [facility] | | | | | | LABORATORY | | + + + + + + | Neutrophils | 11.38 (H) | 1.90 - 7.40 | [facility] | | | , Absolute | | K/uL | LABORATORY | | + + + + + + | IMMATURE | 0.13 (H)Comment: NOTE | 0.00 - 0.07 | [facility] | | | GRANS AB | NEW REFERENCE RANGE | K/uL | LABORATORY | | + + + + + + | Absolute | 2.46 | 1.00 - 3.90 | [facility] | | | Lymphocytes | | K/uL | LABORATORY | | + + + + + + | Absolute | 1.17 (H) | 0.00 - 0.80 | [facility] | | | Monocytes | | K/uL | LABORATORY | | + + + + + + | Eosinophils | 0.73 (H) | 0.00 - 0.50 | [facility] [...] [place] | | | | | | [address] | | | | + + + + + + + + | Specimen | + + | Blood | + + + + + + + | Performing | Address | City/State/Zipcode | Phone Number | | Organization | | | | + + + + + | [facility] | [address] | [place] [address] | [phone] | + + + + + documented in this encounter Visit Diagnoses + + | Diagnosis | + + | Type 2 diabetes mellitus with hyperglycemia, with long-term current use of insulin | | (HCC) - Primary | + + documented in this encounter Administered Medications + +---------+ +--------+-------+------+ | Medication Order | MAR | Action | Dose | Rate | Site | | | Action | Date | | | | + +---------+ +--------+-------+------+ | sodium chloride 0.9% (NS) bolus | New Bag | 05/13/19 | 1,000 | 2000 | | | 1,000 mL 1,000 mL, Intravenous, | | 20 11:45 | mLs | mL/hr | | | Administer over 30 Minutes, | | AM PDT | | | | | ONCE, 05/13/19 at 1140, For 1 | | | | | | | dose | | | | | | + +---------+ +--------+-------+------+ +---+---+ | | | +---+---+ documented in this encounter
--- OUTSIDE RECORDS SUMMARY | ~2019-10-12 | XMS | Encounter Summary ---
Demographics + + + | Address | [address] | | | [place] [address] | + + + | Home Phone [...] + | Sammi Kohler | ECON | [place] [address] | | + + + + + Care Team Providers + +------+ + | Care Sign Writer Hand Name | Role | Phone | + +------+ + PCP | Unavailable | + +------+ + Encounter Details +--------+ + + + + | Date | Type | Department | Care Team | Description | +--------+ + + + + | 02/25/ | Emergency | [facility] | Ashu Bobo | Chest pain, | | 2016 | | [facility] | MD Gordon [address] | unspecified chest | | | | EMERGENCY CENTER | [address] [place], [place] | pain type; | | | | [address] | [address] | Subtherapeutic | | | | [place], [place] | [phone] | international | | | | [address] | | normalized ratio | | | | [phone] | | (INR) | +--------+ + + + + Social [...] + + + | Blood Pressure | 161/74 | 02/25/2015 8:11 AM | | | | | PST | | + + + + + | Pulse | 89 | 02/25/2015 8:11 AM | | | | | PST | | + + + + + | Temperature | 36.9 C (98.4 F) | 02/25/2015 8:11 AM | | | | | PST | | + + + + + | Respiratory Rate | 20 | 02/25/2015 8:11 AM | | | | | PST [...] +---------+ + + | lisinopril | Take 1.5 tablets by | 45 | 0 | 02/25/19 | | | (PRINIVIL,ZESTRIL) | mouth every evening. | tablet | | 16 | 6 | | 40 MG tablet | | [...] documented as of this encounter H&P Notes Samson Blanchard MD - 02/25/2015 7:32 AM PST H&P by Samson Blanchard MD at 02/25/15 0732 Author: Samson Blanchard MD Service: Hospitalist Author Type: Physician Filed: 02/25/15 0812 Date of Service: 02/25/15731 Status: Signed Art Sales Consultant: Samson Blanchard MD (Physician) [facility] Service: Hospitalist History and Physical Date of Admission: 02/25/2015 Requesting Physician: Emergency Department Reason for Admission: Chest pain CHIEF COMPLAINT: Chest pain HISTORY OF PRESENT ILLNESS The patient is a 59 y.o. male with significant past medical history of COPD, paroxysmal carlee b on coumadin, with numerous ED visits for multiple medical issues. He got up to urinate this am and started to have chest pain. 430 started to have left arm n umbness and when he laid back down he started to have chest pain. It was dull, in the middle of the chest, and radiated to the left side. Some nausea with this. The pain has been persistent since even during my encounter at 730am. Pt denies any abdomin al pain related to this. Nursing informed me that he comes in ED quite frequently, for multiple issues and regularly discharged. Pt had normal stress test in July 14 2014 IMPRESSION: 1. Normal myocardial perfusion study. 2. No evidence of pharmacologic stress induced ischemia or infarct. 3. Left ventricular ejection fraction is calculated at 60%. Pt has some SOB, but no cough. Pt had a cath 10/2013:CORONARY ANGIOGRAPHY The coronary system was right dominant. [...] 3. Recommend evaluation for nonischemic chest pain. Denies any Nausea, vomiting, fever, chills, wt loss, wt gain. Sleep: more than usual, appetite, FHx:mother: of tumor in the chest, father: CA at 59, bro with CA before 50. SHx: tobacco: non etoh: occassional drugs: none Assisted living. Prior he was at [facility] for 2 yrs. 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 Past Surgical History Procedure Laterality Date Unlisted procedure arthroscopy Knee surgery rt knee, patella Leg surgery LLE Colonoscopy Cholecystectomy, laparoscopic 09/12/2012 Procedure: LAPAROSCOPIC - CHOLECYSTECTOMY; Surgeon: Jevon Vargas DO; Location: [facility] MAIN OR; Service: General; Laterality: N/A; Abdominal surgery Cholecystectomy Skin cancer excision 10/10/2012 Procedure: EXCISION - SKIN CANCER; Surgeon: Sy Fierro MD; Location: [facility] MAIN OR ; Service: Plastics; Laterality: Left; upper arm and upper back w/frozen section Esophagogastroduodenoscopy 03/03/2013 Procedure: ESOPHAGOGASTRODUODENOSCOPY; Surgeon: Howie Gibson MD; Location: [facility] ENDOSCOPY; S ervice: Gastroenterology; Laterality: N/A; Colonoscopy 03/04/2013 Procedure: COLONOSCOPY; Surgeon: Howie Gibson MD; Location: [facility] ENDOSCOPY; Service: Gastroe nterology; Laterality: N/A; Upper gastrointestinal endoscopy Skin biopsy Hernia repair 07/03/2013 Procedure: LAPAROSCOPIC - HERNIA - INCISIONAL; Surgeon: Jevon Vargas DO; Location: [facility] MAIN OR; Service: General; Laterality: N/A; Skin lesion excision Left 05/05/2014 Procedure: EXCISION - LESION - FROZEN SECTION; Surgeon: Sy Fierro MD; Location: [facility] MAIN OR; Service: Plastics; Laterality: Left; forearm Allergies Allergen Reactions Vitamin B12 Rash (Not in a hospital admission) Family History Problem Relation Age of Onset Heart disease Father Heart disease Sister Diabetes type II Sister Heart Problems Brother History Smoking status Never Smoker Smokeless tobacco Never Used History Alcohol Use 0.0 oz/week 1-2 Cans of beer per week Comment: once week, occasionally History Drug Use No PHYSICAL EXAM Vital Signs: BP 155/74 mmHg | Pulse 76 | Temp(Src) 98.4 F (36.9 C) (Oral) | Resp 18 | SpO2 94% General Appearance: No apparent distress. Conversive and appropriate to place and person. HEENT: Normocephalic, atraumatic, pupils EOMI, PERRLA. Nose: no septal deviation or dischar ge. Ears: normal size, location, and contour. Throat: no exudates, dry. NECK: is supple, full ROM, nontender. CHEST: reproducible chest pain on palpation of the left side. LUNGS: clear to auscultation bilaterally with no wheezing, No rales or rhonchi audible. HEART: S1S2, Regular rate and rhythm without murmurs, gallops or rubs. ABDOMEN: Bowel sound is normoactive, abdomen is soft, non-tender non-distended ,no mass pal pable. EXTREMITIES:No lower extermity edema, No clubbing or cyanosis bilaterally NEURO: Cranial Nerves 2-12 appears intact, Gait not examined, Muscle strength appears equal bilaterally, Sensation grossly intact. PSYCH: Alert, awake and Oriented x3. SKIN: No bruises, rashes, lesions, or ulcers. DATA CBC: Lab Results Component Value Date WBC 10.75 02/25/2015 RBC 5.62 02/25/2015 HGB 13.6 02/25/2015 HCT 42.0 02/25/2015 MCV 74.8* 02/25/2015 MCH 24.1* 02/25/2015 MCHC 32.3 02/25/2015 RDW 45.5 02/25/2015 PLT 283 02/25/2015 MPV 7.6 02/25/2015 DIFFTYPE AUTOMATED 02/25/2015 CMP: Lab Results Component Value Date NA 139 02/25/2015 K 4.0 02/25/2015 CL 103 02/25/2015 CO2 27 02/25/2015 ANIONGAP 13 02/25/2015 GLUF 172* 02/25/2015 BUN 10 02/25/2015 CREATININE 1.1 02/25/2015 BCR 10 02/25/2015 CA 8.7 02/25/2015 PROT 7.9 02/25/2015 ALB 3.3 02/25/2015 GLOB 4.6 02/25/2015 BILITOT 0.5 02/25/2015 ALP 143* 02/25/2015 AST 15 02/25/2015 ALT 21 02/25/2015 EGFR >60 02/25/2015 BMP: Lab Results Component Value Date NA 139 02/25/2015 K 4.0 02/25/2015 CL 103 02/25/2015 CO2 27 02/25/2015 ANIONGAP 13 02/25/2015 GLUF 172* 02/25/2015 BUN 10 02/25/2015 CREATININE 1.1 02/25/2015 BCR 10 02/25/2015 CA 8.7 02/25/2015 EGFR >60 02/25/2015 Hepatic Function Panel: Lab Results Component Value Date PROT 7.9 02/25/2015 ALB 3.3 02/25/2015 BILITOT 0.5 02/25/2015 ALP 143* 02/25/2015 AST 15 02/25/2015 ALT 21 02/25/2015 Magnesium: Lab Results Component Value Date MG 1.9 01/25/2015 Phosphorus: Lab Results Component Value Date PHOS 4.3 12/28/2014 PT/INR: Lab Results Component Value Date INR 1.0 02/25/2015 PTT: Lab Results Component Value Date APTT 27 02/25/2015 [APTT HgbA1c: Lab Results Component Value Date HGBA1C 7.5* 12/28/2014 No results found. ASSESSMENT AND PLAN: Hospital records reviewed. Labs and radiologic studies and reports reviewed. Discussed find ings with participating physicians. Old records reviewed on EMR. Dictation software, [employer], used which may contain error for similar sounding words even af ter review. Personal communication requested for any clarification. Principal Problem: Musculoskeletal chest pain Active Problems: WARD (obstructive sleep apnea) Type 2 diabetes mellitus without complication (HCC) Anxiety Hypertension Chronic anticoagulation On review of his records and history, pt's chest pain is unlikely to be of cardiac. Troponi n is negative, no concerning EKG changes, chest pain is reproducible, and pt had stress test normal 6 months ago. Also cath 2 yrs ago (above). Pt can be discharged home with follow up cardiology in one week. T2DM: continue current management. Will check A1c. Result to PCP WARD; pt needs CPAP at home, not sure if he is using it. HTN: uncertain whether he is taking his medications. Will increase lisinopril to 60mg. Paroxysmal afib; he's been NSR. INR is 1.0, so pt may not be taking his coumadin. Check INR in 2 days. Disposition: Discharge to home. Code Status: Prior Primary Care Physician: EDIN Blanchard MD 02/25/2015 documente d in this encounter ED Notes Ashu Bobo MD - 02/25/2015 5:05 AM PST ED Provider Notes by Ashu Bobo MD at 02/25/15 0503 Author: Ashu Bobo MD Service: -Emergency Author Type: Physician Filed: 02/25/15 0602 Date of Service: 02/25/15 0505 Status: Signed Art Sales Consultant: Ashu Bobo MD (Physician) Procedures Additional Documentation Procedures [facility] Department of Emergency Medicine History of Present Illness Patient Identification Norah Gr is a 59 y.o. male. Patient information was obtained from patient and EMS personnel. History/Exam limitations: none. Patient presented to the Emergency Department by: [facility] 1723 Chief Complaint Chief Complaint Patient presents with Chest Pain The patient complains of chest pain. Onset of symptoms was about 30 minutes ago, with a(n) constant course since that time. The discomfort is described as "hurts", located in the aracely tral chest with no radiation. The onset of symptoms occured while the patient was at home walking from the bathroom to go back to bed. The patient also complains of the following sy mptoms: left arm "numbness". Pt denies: fever, cough, nausea, leg pain or swelling. Pain level currently: mild. At worst: mild. Care prior to arrival: ASA by EMS, with no relief. Pt states he has nitroglycerin at home for this but couldn't find it so called 911. Patient's cardiac risk factors: Age, gender, DM, HTN, high cholesterol. Prior stress testing or other cardiac functional testing: Normal NM study 7 months ago. 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 Past Surgical History Procedure Laterality Date Unlisted procedure arthroscopy Knee surgery rt knee, patella Leg surgery LLE Colonoscopy Cholecystectomy, laparoscopic 09/12/2012 Procedure: LAPAROSCOPIC - CHOLECYSTECTOMY; Surgeon: Jevon Vargas DO; Location: [facility] MAIN OR; Service: General; Laterality: N/A; Abdominal surgery Cholecystectomy Skin cancer excision 10/10/2012 Procedure: EXCISION - SKIN CANCER; Surgeon: Sy Fierro MD; Location: [facility] MAIN OR ; Service: Plastics; Laterality: Left; upper arm and upper back w/frozen section Esophagogastroduodenoscopy 03/03/2013 Procedure: ESOPHAGOGASTRODUODENOSCOPY; Surgeon: Howie Gibson MD; Location: [facility] ENDOSCOPY; S ervice: Gastroenterology; Laterality: N/A; Colonoscopy 03/04/2013 Procedure: COLONOSCOPY; Surgeon: Howie Gibson MD; Location: [facility] ENDOSCOPY; Service: Gastroe nterology; Laterality: N/A; Upper gastrointestinal endoscopy Skin biopsy Hernia repair 07/03/2013 Procedure: LAPAROSCOPIC - HERNIA - INCISIONAL; Surgeon: Jevon Vargas DO; Location: [facility] MAIN OR; Service: General; Laterality: N/A; Skin lesion excision Left 05/05/2014 Procedure: EXCISION - LESION - FROZEN SECTION; Surgeon: Sy Fierro MD; Location: [facility] MAIN OR; Service: Plastics; Laterality: Left; forearm Prior to Admission medications Medication Sig Start Date End Date Taking? Authorizing Provider Albuterol Sulfate (VENTOLIN HFA IN) Inhale 2 puffs into the lungs as needed. 108 mcg/act Historical Provider Kzspo-R-Tmegdmszefzfa (BEANO) TABS Take 150 Units by mouth [...] 100 mg by mouth nightly. Historical Provider onrxszieu-nvsyuqvn-zrvsmbxbt hydroxide-simethicone Take 40 mLs by mouth daily [...] Lives alone x 1 wk, moved from [facility], , 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 2 falls in the last 6 months. Family History Problem Relation Age of Onset Heart disease Father Heart disease Sister Diabetes type II Sister Heart Problems Brother Review of Systems Constitutional: Negative for: fever, chills Eyes: Negative for: vision changes Cardiovascular/Respiratory: As above, else negative for: change in chronic cough Gastrointestinal: Negative for: abdominal pain, diarrhea. Positive for a single episode o f vomiting about two days ago. Genitourinary: Negative for: dysuria, hematuria, urinary problems Musculoskeletal: Negative for: extremity swelling Skin: Negative for: rash Neuro and psych: Negative for: fainting All other review of systems negative except as mentioned. Physical Exam BP 179/87 mmHg | Pulse 83 | Resp 20 | SpO2 99%. T 98.5F Pulse Oximetry interpretation: Normal VS: HTN, else normal. General: Alert, in no apparent distress. Very poor personal hygiene. Eyes: Normal inspection, pupils equal and round, non-icteric ENT: Ears normal Nose normal Neck: Normal inspection Supple No lymphadenopathy No meningismus Cardiovascular: Normal rate, rhythm. No murmur. Respiratory: Normal lung sounds. No rales, mild rhonchi, or wheezing. Abdomen: Soft, non-tender, non-distended No guarding or rebound Back: Normal inspection Extremities: No edema or tenderness Skin: Color normal Warm and dry No rash Neuro: No motor deficit No sensory deficit including light touch testing of extremity with "numb"ness. Medical Decision Making and Emergency Department Course ED Department Course Normal exam, benign overall appearance. Pt has history of frequent ED visits and very freq uent 911 calls. He has a care plan. History of cognitive deficit. TnI normal. Other labs largely normal. BG 172 (pt has history of poor control of BG). CXR unremarkable. Will admit for serial TnI. 0600 - Discussed case with Dr. Ochoa (hospitalist), will admit. Pt reassessed multiple times during course of ED stay and demonstrated neither decompensati on nor were new symptoms observed or reported. BP 155/74 mmHg | Pulse 76 | Temp(Src) 98.4 F (36.9 C) (Oral) | Resp 18 | SpO2 94% Records Reviewed Old medical records. Dozens of prior ED visits noted. I have also noted and reviewed the patient care plan in the EMR. Laboratory Evaluation [facility] CARD PANEL W/O TRP (ED ONLY) - Abnormal; Notable for the following: MCV 74.8 (*) MCH 24.1 (*) GLUCOSE 172 (*) A/G 0.7 (*) ALK PHOS 143 (*) All other components within normal limits TROPONIN I POC CARDIAC TROPONIN 12-lead ECG: Time of exam 0504. Interpreted independently by me. Rate: 91. Rhythm: NSR. Ectopy: none. [place]: nml. Intervals: nml. Infarct/Ischemia: nonspecific flattening. T echnique: Good. Interpretation: NSR with nonspecific T-wave changes Prior ECG for comparison: No significant change from prior study dated 27 Jan 2015. Radiology and EKG Evaluation Imaging Results XR Chest PA and Lateral (In process) ED Diagnoses Final diagnoses Chest pain, unspecified chest pain type Subtherapeutic international normalized ratio (INR) Disposition: ED Disposition Admit/Observation Bed request special needs: None Diagnosis?: chest pain Follow-up Information None Discharge Medications: New Prescriptions No new medications Ashu Bobo MD 02/25/15 0602 onversion Transa ction, Provider Unknown - 02/25/2015 5:04 AM PST ED Notes by Tatum Pratt RN at 02/25/15503 Author: Tatum Pratt RN Service: (none) Author Type: Registered Nurse Filed: 02/25/15503 Date of Service: 02/25/15503 Status: Signed Art Sales Consultant: Tatum Pratt RN (Registered Nurse) Bed: 01 Expected date: Expected time: Means of arrival: Comments: 1723 onver ivana Transaction, Provider Unknown - 02/25/2015 5:00 AM PST ED Notes by Tatum Pratt RN at 02/25/15499 Author: Tatum Pratt RN Service: (none) Author Type: Registered Nurse Filed: 02/25/15499 Date of Service: 02/25/15499 Status: Signed Art Sales Consultant: Tatum Pratt RN (Registered Nurse) Pt having cp, per EMS ok at home but pt wants to come to ED to be "checked out". Tatum Pratt RN 02/25/15499 docume nted in this encounter Plan of Treatment +--------+ + + + + | Date | Type | Specialty | Care Team | Description | +--------+ + + + + | 10/16/ | Anti-coag | Anticoagulation | Brittany Zaragoza | | | 2020 | visit | | [address] | | | | | | [address] [place], | | | | | | [place] [address] | | | | | | [phone] | | | | | | | | +--------+ + + + + documented as of this encounter Procedures + +--------+ + + + | Procedure Name | Priori | Date/Time | Associated Diagnosis | Comments | | | ty | | | | + +--------+ + + + | XR CHEST 2 VIEWS | Routin | 02/25/2015 | | Results for this | | | e | 5:55 AM | | procedure are in the | | | | PST | | results section. | + +--------+ + + + | HISTORICAL LAB PANEL | Routin | 02/25/2015 | | Results for this | | RESULT | e | 5:19 AM | | procedure are in the | | | | PST | | results section. | + +--------+ + + + | TROPONIN I | Routin | 02/25/2015 | | Results for this | | | e | 5:19 AM | | procedure are in the | | | | PST | | results section. | + +--------+ + + + | ECG 12 LEAD | Routin | 02/25/2015 | | Results for this | | | e | 5:04 AM | | procedure are in the | | | | PST | | results section. | + +--------+ + + + documented in this encounter Results XR Chest 2 Vws (02/25/2015 5:55 AM PST) + + | Specimen | + + | | + + + + + | Impressions | Performed At | + + + | 1. Mild left basilar subsegmental atelectasis. Electronically | | | signed by Neal Ramírez DO on 02/25/2015 8:21 AM | | + + + + + + | Narrative | Performed At | + + + | [facility] XR CHEST 2 VIEW FRONTAL AND LATERAL HISTORY: 59 | | | years. Male. Chest pain. TECHNIQUE: Frontal and lateral views of | | | the chest were obtained. COMPARISON: 01/27/2015 FINDINGS: | | | Heart is normal in size. No pulmonary vascular congestion. No | | | pneumothorax. No focal airspace disease or pleural effusion. Mild left | | | basilar subsegmental atelectasis. | | + + + + + | Procedure Note | + + | Richard, Rad Conversion - 09/20/2018 4:04 AM PDT [facility] AM[facility]AL CHEST 2 VIEW FRONTAL | | AND LATERAL HISTORY:59 years. Male. Chest pain. TECHNIQUE:Frontal and lateral views of | | the chest were obtained. COMPARISON:01/27/2015 FINDINGS:Heart is normal in size. No | | pulmonary vascular congestion. No pneumothorax. No focal airspace disease or pleural | | effusion. Mild left basilar subsegmental atelectasis. IMPRESSION: 1. Mild left basilar | | subsegmental atelectasis. | | AM | |Frontal and lateral views of the chest were obtained. | | | |COMPARISON: | |01/27/2015 | | | |FINDINGS: | |Heart is normal in size. No pulmonary vascular congestion. No pneumothorax. No focal airspa ce disease or pleural effusion. Mild left basilar subsegmental atelectasis. | | | |IMPRESSION: | |1. Mild left basilar subsegmental atelectasis. | | | | | + + HISTORICAL LAB PANEL RESULT (02/25/2015 5:19 AM PST) + + + + + + | Component | Value | Ref Range | Performed | Pathologist | | | | | At | Signature | + + + + + + | WBC | 10.75Comment: Testing | 3.80 - 11.00 | EXTERNAL | | | | performed at [facility];[address] | K/uL | LAB | | | | [address];[place] | | | | | | [address] | | | | + + + + + + | Non- | 5.62Comment: Testing | 4.20 - 5.70 | EXTERNAL | | | Red Blood | performed at [facility];[address] | M/uL | LAB | | | Cells | [address];[place] | | | | | Counted | [id number] | | | | + + + + + + | Hemoglobin | 13.6Comment: Testing | 13.2 - 17.0 | EXTERNAL | | | | performed at [facility];[address] | g/dL | LAB | | | | [address];[place] | | | | | | [address] | | | | + + + + + + | Hematocrit, | 42.0Comment: Testing | 39.0 - 50.0 % | EXTERNAL | | | POC | performed at [facility];[address] | | LAB | | | | [address];[place] | | | | | | [address] | | | | + + + + + + | MCV | 74.8 (L)Comment: Testing | 80.0 - 100.0 fl | EXTERNAL | | | | performed at [facility];[address] | | LAB | | | | [address];[place] | | | | | | [address] | | | | + + + + + + | MCH | 24.1 (L)Comment: Testing | 27.0 - 34.0 pg | EXTERNAL | | | | performed at [facility];[address] | | LAB | | | | [address];[place] | | | | | | [address] | | | | + + + + + + | MCHC | 32.3Comment: Testing | 32.0 - 35.5 | EXTERNAL | | | | performed at [facility];888 | g/dL | LAB | | | | [address];[place] | | | | | | [address] | | | | + + + + + + | RDW-CV | 45.5Comment: Testing | 37 - 53 fl | EXTERNAL | | | | performed at [facility];[address] | | LAB | | | | [address];[place] | | | | | | [address] | | | | + + + + + + | Platelet | 283Comment: Testing | 150 - 400 K/uL | EXTERNAL | | | Count | performed at [facility];[address] | | LAB | | | Plasma | [address];[place] | | | | | | [address] | | | | + + + + + + | MPV | 7.6Comment: Testing | fl | EXTERNAL | | | | performed at [facility];[address] | | LAB | | | | [address];[place] | | | | | | [address] | | | | + + + + + + | Differentia | AUTOMATEDComment: | | EXTERNAL | | | l Type | Testing performed at | | LAB | | | | [facility];[address] | | | | | | [address];[place] [address] | | | | + + + + + + | % Segmented | 56.47Comment: Testing | % | EXTERNAL | | | | performed at [facility];[address] | | LAB | | | Neutrophils | [address];[place] | | | | | | [address] | | | | + + + + + + | % | 29.44Comment: Testing | % | EXTERNAL | | | Lymphocytes | performed at [facility];[address] | | LAB | | | | [address];[place] | | | | | | [address] | | | | + + + + + + | % Monocytes | 10.45Comment: Testing | % | EXTERNAL | | | | performed at [facility];[address] | | LAB | | | | [address];[place] | | | | | | [address] | | | | + + + + + + | % | 3.03Comment: Testing | % | EXTERNAL | | | Eosinophils | performed at [facility];[address] | | LAB | | | | [address];[place] | | | | | | [address] | | | | + + + + + + | % Basophils | 0.61Comment: Testing | % | EXTERNAL | | | | performed at [facility];[address] | | LAB | | | | [address];[place] | | | | | | [address] | | | | + + + + + + | Absolute | 6.07Comment: Testing | 1.90 - 7.40 | EXTERNAL | | | Segmented | performed at [facility];[address] | K/uL | LAB | | | Neutrophils | [address];[place] | | | | | | [address] | | | | + + + + + + | Absolute | 3.16Comment: Testing | 1.00 - 3.90 | EXTERNAL | | | Lymphocytes | performed at [facility];[address] | K/uL | LAB | | | | [address];[place] | | | | | | [address] | | | | + + + + + + | Absolute | 1.12 (H)Comment: Testing | 0.00 - 0.80 | EXTERNAL | | | Monocytes | performed at [facility];[address] | K/uL | LAB | | | | [address];[place] | | | | | | [address] | | | | + + + + + + | Absolute | 0.33Comment: Testing | 0.00 - 0.50 | EXTERNAL | | | Eosinophils | performed at [facility];[address] | K/uL | LAB | | | | [address];[place] | | | | | | [address] | | | | + + + + + + | Absolute | 0.07Comment: Testing | 0.00 - 0.10 | EXTERNAL | | | Basophils | performed at [facility];[address] | K/uL | LAB | | | | [address];[place] | | | | | | [address] | | | | + + + + + + | RBC | 1+Comment: | | EXTERNAL | | | Morphology | HYPO2+MICRONORMAL PLT | | LAB | | | | MORPHTesting performed | | | | | | at [facility];[address] | | | | | | [address];[place] [address] | | | | | |NORMAL PLT MORPH | | | | | |Testing performed at [facility];[address];[place] [address] | | | | | | | | | | + + + + + + | Platelet | ADEQUATEComment: Testing | | EXTERNAL | | | Estimate | performed at [facility];[address] | | LAB | | | | [address];[place] | | | | | | [address] | | | | + + + + + + | Differentia | SLIDE SCANNED, AGREES | | EXTERNAL | | | l Comments | WITH AUTOMATED | | LAB | | | | RESULTS.Comment: Testing | | | | | | performed at [facility];[address] | | | | | | [address];[place] | | | | | | [address] | | | | + + + + + + | Na | 139Comment: Testing | 135 - 143 | EXTERNAL | | | | performed at [facility];888 | mmol/L | LAB | | | | [address];[place] | | | | | | [address] | | | | + + + + + + | K | 4.0Comment: Testing | 3.5 - 4.9 | EXTERNAL | | | | performed at [facility];888 | mmol/L | LAB | | | | [address];[place] | | | | | | [address] | | | | + + + + + + | Cl | 103Comment: Testing | 99 - 109 mmol/L | EXTERNAL | | | | performed at [facility];[address] | | LAB | | | | [address];[place] | | | | | | [address] | | | | + + + + + + | CO2 | 27Comment: Testing | 23 - 32 mmol/L | EXTERNAL | | | | performed at [facility];[address] | | LAB | | | | [address];[place] | | | | | | [address] | | | | + + + + + + | Anion Gap | 13Comment: Testing | 5 - 20 mmol/L | EXTERNAL | | | | performed at [facility];[address] | | LAB | | | | [address];[place] | | | | | | [address] | | | | + + + + + + | Glucose, | 172 (H)Comment: Testing | 65 - 99 mg/dL | EXTERNAL | | | Fasting | performed at [facility];[address] | | LAB | | | | [address];[place] | | | | | | [address] | | | | + + + + + + | BUN | 10Comment: Testing | 8 - 25 mg/dL | EXTERNAL | | | | performed at [facility];[address] | | LAB | | | | [address];[place] | | | | | | [address] | | | | + + + + + + | Creatinine | 1.1Comment: Testing | 0.70 - 1.30 | EXTERNAL | | | | performed at [facility];888 | mg/dL | LAB | | | | [address];[place] | | | | | | [address] | | | | + + + + + + | BUN/Creatin | 10Comment: Testing | | EXTERNAL | | | ine Ratio | performed at [facility];[address] | | LAB | | | | [address];[place] | | | | | | [address] | | | | + + + + + + | Calcium | 8.7Comment: Testing | 8.5 - 10.5 | EXTERNAL | | | | performed at [facility];888 | mg/dL | LAB | | | | [address];[place] | | | | | | [address] | | | | + + + + + + | Protein, | 7.9Comment: Testing | 6.3 - 8.2 g/dL | EXTERNAL | | | Total | performed at [facility];888 | | LAB | | | | [address];[place] | | | | | | [address] | | | | + + + + + + | Albumin | 3.3Comment: Testing | 3.3 - 4.8 g/dL | EXTERNAL | | | | performed at [facility];888 | | LAB | | | | [address];[place] | | | | | | [address] | | | | + + + + + + | Globulin | 4.6Comment: Testing | 1.3 - 4.9 g/dL | EXTERNAL | | | | performed at [facility];[address] | | LAB | | | | [address];[place] | | | | | | [address] | | | | + + + + + + | A/G Ratio | 0.7 (L)Comment: Testing | 1.0 - 2.4 | EXTERNAL | | | | performed at [facility];[address] | | LAB | | | | [address];[place] | | | | | | [address] | | | | + + + + + + | Bilirubin | 0.5Comment: Testing | 0.1 - 1.5 mg/dL | EXTERNAL | | | Total | performed at [facility];[address] | | LAB | | | | [address];[place] | | | | | | [address] | | | | + + + + + + | ALP, | 143 (H)Comment: Testing | 35 - 115 U/L | EXTERNAL | | | External | performed at [facility];[address] | | LAB | | | | [address];[place] | | | | | | [address] | | | | + + + + + + | AST | 15Comment: Testing | 10 - 45 U/L | EXTERNAL | | | | performed at [facility];888 | | LAB | | | | [address];[place] | | | | | | [address] | | | | + + + + + + | ALT | 21Comment: Testing | 10 - 65 U/L | EXTERNAL | | | | performed at [facility];[address] | | LAB | | | | [address];[place] | | | | | | [address] | | | | + + + [...] at [facility];[address] [facility] | | | | | | Blvd;[place] [address] | | | | + + + + + + | CK, Total | 105Comment: Testing | 55 - 400 U/L | EXTERNAL | | | | performed at [facility];[address] | | LAB | | | | [address] | | | | | | [address] | | | | + + + [...] performed at [facility];[address] | | | | | | [address];[place] | | | | | | [address] | | | | + + + + + + | aPTT, | 27Comment: Testing | 23 - 32 seconds | EXTERNAL | | | Patient | performed at [facility];[address] | | LAB | | | | [address];[place] | | | | | | [address] | | | | + + + + + + | CK-MB | 2.5Comment: Testing | 0.5 - 3.6 ng/mL | EXTERNAL | | | | performed at [facility];[address] | | LAB | | | | [address];[place] | | | | | | [address] | | | | + + + + + + | CK-MB Index | 2.4Comment: CK INDEX | | EXTERNAL | | [...] | + +---------+ + + Troponin I (02/25/2015 5:19 AM PST) + + + + + [...] | | | | | | ACUTE CA Testing | | | | | | performed at [facility];[address] | | | | | | [facility];[place], [place] | | | | | | [address] | | | | + + + [...] + +---------+ + + ECG 12 lead (02/25/2015 5:04 AM PST) + + + + + [...] | | | | | ECG of 27-JAN-2015 | | | | | | 20:15,Vent. rate has | | | | | | increased BY 31 | | | | | | BPMNonspecific T wave | | | | | | abnormality, improved in | | | | | | Anterolateral leadsThis | | | | | | ECG contains | | | | | | Unconfirmed | | | | | | Interpretation | | | | | | Statements. See ED | | | | | | Record for Physician | | | | | | Interpretation. | | | | | | Confirmed by MUSE READ | | | | | | ONLY, -COMPUTER ([id number]), | | | | | | book or script editor Keyla Gregory | | | | | | (25) on 02/26/2015 | | | | | | 4:17:27 AM | | | | + + + + + + + + | Specimen | + + | | + + + + + | Narrative | Performed At | + + + | [facility] | EXTERNAL LAB | + + [...] unspecified chest pain type | + + | Subtherapeutic international normalized ratio (INR) Abnormal coagulation profile | + + documented in this encounter
--- OUTSIDE RECORDS SUMMARY | ~2019-10-12 | XMS | Encounter Summary ---
Demographics + + + | Address | [address] | | | [place] [address] | + + + | Home Phone [...] + | Sammi Kohler | ECON | [place] [address] | | + + + + + Care Team Providers + +------+ + | Care Career Coach Name | Role | Phone | + +------+ + PCP | Unavailable | + +------+ + Encounter Details +--------+ + + + + | Date | Type | Department | Care Team | Description | +--------+ + + + + | 02/21/ | Emergency | [facility] | Ashu Bobo | DM (diabetes | | 2016 | | [facility] | MD [address] | mellitus), type 2, | | | | EMERGENCY CENTER | [address] [place], [place] | uncontrolled (HCC); | | | | [address] | [address] | Hyperglycemia | | | | [place], [place] | [phone] | | | | | [address] | | | | | | [phone] | | | +--------+ + + + [...] + + + | Blood Pressure | 139/69 | 02/21/2015 11:12 PM | | | | | PST | | + + + + + | Pulse | 70 | 02/21/2015 11:12 PM | | | | | PST | | + + + + + | Temperature | 36.6 C (97.8 F) | 02/21/2015 11:12 PM | | | | | PST | | + + + + + | Respiratory Rate | 16 | 02/21/2015 11:12 PM | | | | | PST | | + + + + + | Oxygen Saturation | - | - | | + + + + + | Inhaled Oxygen | - | - | | | Concentration | | | | + + + + + | Weight | 105.7 kg (233 lb) | 02/21/2015 11:12 PM | | | | | PST [...] ED Notes Conversion Transaction, Provider Unknown - 02/21/2015 11:38 PM PSTFormatting of this note m ight be different from the original. ED Notes by Suresh Marin RN at 02/21/15 2697 Author: Suresh Marin RN Service: (none) Author Type: Registered Nurse Filed: 02/21/152338 Date of Service: 02/21/152337 Status: Signed 8Th Grade Mathematics Teacher: Suresh Marin, RN (Registered Nurse) Pt awake alert. Resting quietly . No complaints voiced. Pt to looby to wait for ride home v ia cab, Suresh Marin RN 02/21/152338 odgjess , Ashu Leyva MD - 02/21/2015 10:26 PM PSTFormatting of this note might be different from th e original. ED Provider Notes by Ashu Bobo MD at 02/21/152225 Author: Ashu Bobo MD Service: -Emergency Author Type: Physician Filed: 02/22/15 0135 Date of Service: 02/21/152225 Status: Signed 8Th Grade Mathematics Teacher: Ashu Bobo MD (Physician) Procedures Additional Documentation Procedures [facility] Department of Emergency Medicine History of Present Illness Patient Identification Kevyn Guzman is a 59 y.o. male. Patient information was obtained from patient, EMS personnel and past medical records. History/Exam limitations: none. Patient presented to the Emergency Department by: [facility] 9-3 Chief Complaint Chief Complaint Patient presents with Hyperglycemia The patient complains of high blood sugar. Onset of symptoms was chronic problem but worse lately. Pt states that tonight before going to bed he checked his BG and it was 463 so he c alled 911. On EMS arrival the pt's BG was 204 on their monitor. Pt gave himself Novolog in jection per his sliding scale just prior to EMS arrival. [facility] pt wanted to come to the ED. Pt seen in ED earlier for hyperglycemia. Patient denies: vomiting, abdominal pain PCP: JERRELL GUTIÉRREZ Past Medical History Diagnosis [...] - CHOLECYSTECTOMY; Surgeon: Jevon Vargas DO; Location: [facility]; Service: General; Laterality: N/A; Abdominal surgery Cholecystectomy Skin cancer excision 10/10/2012 Procedure: EXCISION - SKIN CANCER; Surgeon: Sy Fierro MD; Location: [facility] ; Service: Plastics; Laterality: Left; upper arm and upper back w/frozen section Esophagogastroduodenoscopy 03/03/2013 Procedure: ESOPHAGOGASTRODUODENOSCOPY; Surgeon: Howie Gibson MD; Location: [facility]; S ervice: Gastroenterology; Laterality: N/A; Colonoscopy 03/04/2013 Procedure: COLONOSCOPY; Surgeon: Howie Gibson MD; Location: [facility]; Service: Gastroe nterology; Laterality: N/A; Upper gastrointestinal endoscopy Skin biopsy Hernia repair 07/03/2013 Procedure: LAPAROSCOPIC - HERNIA - INCISIONAL; Surgeon: Jevon Vargas DO; Location: [facility]; Service: General; Laterality: N/A; Skin lesion excision Left 05/05/2014 Procedure: EXCISION - LESION - FROZEN SECTION; Surgeon: Sy Fierro MD; Location: [facility]; Service: Plastics; Laterality: Left; forearm Prior to Admission medications Medication Sig Start Date End Date Taking? Authorizing Provider Albuterol Sulfate (VENTOLIN HFA IN) Inhale 2 puffs into the lungs as needed. 108 mcg/act Historical Provider Mobmo-F-Cmhkmkejwyeqm (BEANO) TABS Take 150 Units by mouth [...] 100 mg by mouth nightly. Historical Provider mkeekcaxh-uughzlea-evizciwht hydroxide-simethicone Take 40 mLs by mouth daily [...] AND DRINK BY MOUTH EVERY DAY 04/23/13 Bnag Yeh MD pravastatin (PRAVACHOL) 20 MG tablet [...] Lives alone x 1 wk, moved from [facility], , 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 2 falls in the last 6 months. Family History Problem Relation Age of Onset Heart disease Father Heart disease Sister Diabetes type II Sister Heart Problems Brother Review of Systems Constitutional: Negative for: fever, chills Eyes: Negative for: vision changes Throat: Negative for: mouth sores Cardiovascular/Respiratory: Negative for: chest pain, shortness of breath, cough Gastrointestinal: Negative for: abdominal pain, vomiting, diarrhea, black or bloody stools Genitourinary: Negative for: dysuria, hematuria, urinary problems Musculoskeletal: Negative for: joint pain Skin: Negative for: rash Neuro and psych: Negative for: fainting Endocrine/Heme/Lymph: Negative for: swollen lymph nodes All other review of systems negative except as mentioned. Physical Exam BP 153/57 mmHg | Pulse 81 | Temp(Src) 97.7 F (36.5 C) | Resp 16 | Wt 105.688 kg (233 lb ) | SpO2 98% Pulse Oximetry interpretation: Normal VS: Normal. Afebrile. General: Alert, in no apparent distress Eyes: Normal inspection, pupils equal and round, non-icteric ENT: Ears normal Nose normal Neck: Normal inspection Supple No lymphadenopathy No meningismus Cardiovascular: Normal rate, rhythm, no murmur. Respiratory: Normal lung sounds. No rales, rhonchi, or wheezing. Abdomen: Soft, non-tender, non-distended No guarding or rebound Back: Normal inspection Extremities: No edema or tenderness Skin: Color normal Warm and dry No rash Neuro: No motor deficit No sensory deficit Medical Decision Making and Emergency Department Course ED Department Course Benign overall exam and normal VS. Will recheck BG to make sure BG isn't dropping too rapi dly. Recheck here is 202. This is about 45 min after EMS check. This would suggest BG is not c hanging rapidly at all, rather it raises concerns about the accuracy of pt's glucometer. Dang scussed this with pt and it is evident that the pt has some cognitive deficits so I have spe nt extra time with explanation of plan and follow up and how to check or calibrate a glucome ter. For extra insurance on this I have recommended the pt do this with his pharmacist or P CP. No additional testing or interventions recommended. Records Reviewed Old medical records. Specifically reviewed recent ED visit from earlier today and the lab results. Laboratory Evaluation Labs Reviewed POCT GLUCOSE - Abnormal; Notable for the following: GLUCOSE,POC SCREEN 202 (*) All other components within normal limits Radiology and EKG Evaluation Imaging Results None ED Diagnoses Final diagnoses DM (diabetes mellitus), type 2, uncontrolled (HCC) Hyperglycemia, mild Disposition: ED Disposition Discharge Condition at discharge: Stable Follow-up Information Follow up With Details Comments Contact Info Jerrell Gutiérrez, In [address] [facility] [address] Discharge Medications: Discharge Medication List as of 02/21/2015 11:03 PM Ashu Bobo MD 02/22/155 onversion Transa ction, Provider Unknown - 02/21/2015 10:04 PM PST ED Notes by Suresh Marin RN at 02/21/152203 Author: Suresh Marin RN Service: (none) Author Type: Registered Nurse Filed: 02/21/152205 Date of Service: 02/21/152203 Status: Signed 8Th Grade Mathematics Teacher: Suresh Marin RN (Registered Nurse) Pt here for check on wide range of finger stick glucose levels today. Pt seen in ED earlier today for same complaint. Suresh Marin RN 02/21/152205 onver ivana Transaction, Provider Unknown - 02/21/2015 10:01 PM PST ED Notes by Suresh Marin RN at 02/21/152200 Author: Suresh Marin RN Service: (none) Author Type: Registered Nurse Filed: 02/21/152200 Date of Service: 02/21/152200 Status: Signed 8Th Grade Mathematics Teacher: Suresh Marin RN (Registered Nurse) BG ROLLER DIE CUTTING MACHINE OPERATOR 204, Pt took 35 U novalog 45 min ROLLER DIE CUTTING MACHINE OPERATOR Suresh Marin RN 02/21/152200 onver ivana Transaction, Provider Unknown - 02/21/2015 9:58 PM PST ED Notes by Ivonne Hernandez RN at 02/21/152157 Author: Ivonne Hernandez RN Service: (none) Author Type: Registered Nurse Filed: 02/21/152157 Date of Service: 02/21/152157 Status: Signed 8Th Grade Mathematics Teacher: Ivonne Hernandez RN (Registered Nurse) Bed: 12 Expected date: Expected time: Means of arrival: Comments: 1923 docume nted in this encounter Plan of [...] [place], | | | | | | [place] [address] | | | | | | [phone] | | | | | | | | +--------+ + + + + documented as of this encounter Procedures + +--------+ + + + | Procedure Name | Priori | Date/Time | Associated Diagnosis | Comments | | | ty | | | | + +--------+ + + + | POC GLUCOSE | Routin | 02/21/2015 | | Results for this | | | e | 10:13 PM | | procedure are in the | | | | PST | | results section. | + +--------+ + + + documented in this encounter Results POC Glucose (02/21/2015 10:13 PM PST) + + + + + + | Component | Value | Ref Range | Performed | Pathologist | | | | | At | Signature | + + + + + + | Glucose, | 202 (H)Comment: Testing | 65 - 99 mg/dL | EXTERNAL | | | Fingerstick | performed at [facility] [place] | | LAB | | | | [address];[place] | | | | | | [address] | | | | + + + [...] + | Diagnosis | + + | DM (diabetes mellitus), type 2, uncontrolled (HCC) Type II or unspecified type | | diabetes mellitus without mention of complication, uncontrolled | + + | Hyperglycemia Other abnormal glucose | + + documented in this encounter"
--- OUTSIDE RECORDS SUMMARY | ~2019-10-12 | XMS | Encounter Summary ---
Demographics + + + | Address | [address] | | | [place] [address] | + + + | Home Phone | | + + + | Preferred Language | Unknown | + + + | Marital Status | | + + + | Mandaen Affiliation | 1027 | + + + [...] Sammi Kohler | ECON | [place] [address] | | + + + + + Care Team Providers + +------+ + | Care Stave Jointer Name | Role | Phone | + [...] + + | 07/29/ | Telephone | [facility] | Sanjuanita Rodriguez RN | Other (Phone number | | 2020 | | PHYSICAL THERAPY ASSISTANT | | clarification) | | | | MANAGEMENT [address] | | | [address] | | | | | | [place], [place] | | | | | | [address] | | | | | | [phone] | | | +--------+ + + + [...] Miscellaneous Notes Telephone Encounter - Fanny Ramos, Spray Machine Operator - 07/31/2019 8:34 AM PDTPhone number in [...] provided the number listed on the chart [phone] and she states that is the number [...] [place], | | | | | | [place] [address] | | | | | | [phone] | | | | | | | | +--------+ + + + + documented as of this encounter Visit Diagnoses Not on filedocumented in this encounter"
--- OUTSIDE RECORDS SUMMARY | ~2019-10-12 | XMS | Encounter Summary ---
Demographics + + + | Address | [address] | | | [place] [address] | + + + | Home Phone [...] + | Sammi Kohler | ECON | [place] [address] | | + + + + + Care Team Providers + +------+ + | Care Supervisor Offset Plate Preparation Name | Role | Phone | + +------+ + PCP | Unavailable | + +------+ + Encounter Details +--------+ + + + + | Date | Type | Department | Care Team | Description | +--------+ + + + + | 03/31/ | Hospital | [facility] | | | | 2014 | Encounter | [facility] | | | | | | CLINICAL LABORATORY | | | | | | [address] | | | | | | [facility] [place] | | | | | | [address] | | | | | | [phone] | | | +--------+ + + + [...] | | | | | | [place] [address] | | | | | | [phone] | | | | | | | | +--------+ + + + + documented as of this encounter Visit Diagnoses Not on filedocumented in this encounter"
--- OUTSIDE RECORDS SUMMARY | ~2019-10-12 | XMS | Encounter Summary ---
Demographics + + + | Address | [address] | | | [place] [address] | + + + | Home Phone [...] | Sammi Kohler | ECON | [place] [address] | | + + + + + Care Team Providers + +------+ + | Care Surgical Appliances Salesperson Name | Role | Phone | + [...] + + | 07/28/ | Telephone | [facility] | Sanjuanita Rodriguez RN | T[facility] - Hosp [facility] | | 2019 | | RETAIL CONSULTANT | | | | | | [address]EMENT [address] | | | | | | [address] | | | | | | [place] | | | | | | [address] | | | | | | [phone] | | | +--------+ + + + [...] Rodriguez RN - 07/30/2019 11:06 AM PDTSecond ha attem pt to reach patient post hospital discharge, he is eligible for a Transitional Care [facility] billable follow up appointment. Patient is currently [...] 2019 | visit | | [address] | | | | | | [place], | | | | | | [place] [address] | | | | | | [phone] | | | | | | | | +--------+ + + + + documented as of this encounter Visit Diagnoses Not on filedocumented in this encounter"
--- OUTSIDE RECORDS SUMMARY | ~2019-10-12 | XMS | Encounter Summary ---
Demographics + + + | Address | [address] | | | [place] [address] | + + + | Home Phone | | + + + | Preferred Language | Unknown | + + + | Marital Status | | + + + | Restorationism Affiliation | 1027 | + + + | Race | White | + + + | Ethnic Group | Not or | + + + Author + + + | Author | [facility] | | | and [place] | + + + | Organization | [facility] | | | and [place] | + + + | Address | Unknown | + + + | Phone | Unavailable | + + + Support + + + + + | Name | Relationship | Address | Phone | + + + + + | Sammi Kohler | ECON | [place] [address] | | + + + + + Care Team Providers + +------+ + | Care Quality Project Manager Name | Role | Phone | + +------+ + PCP | Unavailable | + +------+ + Encounter Details +--------+ + + + + | Date | Type | Department | Care Team | Description | +--------+ + + + + | 09/28/ | Hospital | [facility] | Conversion | | | 2012 | Encounter | [facility] | Transaction, | | | | | CLINIC [address] | Provider Unknown | | | | | [address] [place] [address] | [phone] | | | | | [address] | | | | | | [phone] | Sy Fierro MD | | | | | | [address] | | | | | | [place] | | | | | | [address] | | | | | | | [...] Procedure Notes Conversion Transaction, Provider Unknown - 09/28/2012 6:57 PM PDTFormatting of this note m ight be different from the original. Pre-Procedure Instructions by Yesica Moore RN at 09/28/121856 Author: Yesica Moore RN Service: Anesthesiology Author Type: Registered Nurse Filed: 09/28/121858 Date of Service: 09/28/121856 Status: Signed Certified Tumor Registrar: Yesica Moore RN (Registered Nurse) Patient seen earlier today by Melva PRADO. h/h 8.3 and 25 on 09-21. Had Cholecystectomy on , came into ER for post-op bleed. Reviewed case with Dr. Arana, patient does not need to come in for additional labs prior to surgery. onver ivana Transaction, Provider Unknown - 09/28/2012 2:44 PM PDT Pre-Procedure Instructions by Ira Schaeffer RN at 09/28/12 1442 Author: Ira Schaeffer RN Service: (none) Author Type: Registered Nurse Filed: 09/28/12 1446 Date of Service: 09/28/121443 Status: Signed Certified Tumor Registrar: Ira Schaeffer RN (Registered Nurse) Called Dr. Person office Re hgb 8.3 and HCt 25 from 09/21 left message onver ivana Transaction, Provider Unknown - 09/28/2012 12:01 PM PDT Pre-Procedure Instructions by Cherry Chong RN at 09/28/12 120 Author: Chrery Chong RN Service: (none) Author Type: Registered Nurse Filed: 09/28/12 1206 Date of Service: 09/28/121200 Status: Signed Certified Tumor Registrar: Cherry Chong RN (Registered Nurse) Pt has a speech impediment and is somewhat [place] docume nted in this encounter Plan of Treatment +--------+ + + + + | Date | Type | Specialty | Care Team | Description | +--------+ + + + + | 10/16/ | Anti-harry | Anticoagulation | Brittany Zaragoza | | | 2020 | visit | | [address] | | | | | | [place], | | | | | | [place] [address] | | | | | | [phone] | | | | | | | | +--------+ + + + + documented as of this encounter Visit Diagnoses Not on filedocumented in this encounter"
--- OUTSIDE RECORDS SUMMARY | ~2019-10-12 | XMS | Encounter Summary ---
Demographics + + + | Address | [address] | | | [place] [address] | + + + | Home Phone | | + + + | Preferred Language | Unknown | + + + | Marital Status | | + + + | [employer] Affiliation | 1027 | + + + | Race | White | + + + | Ethnic Group | Not or | + + + Author + + + | Author | [facility] | | | and [place] | + + + | Organization | [facility] | | | and [place] | + + + | Address | Unknown | + + + | Phone | Unavailable | + + + Support + + + + + | Name | Relationship | Address | Phone | + + + + + | Sammi Kohler | ECON | [place] [address] | | + + + + + Care Team Providers + +------+ + | Care Dietary Worker Name | Role | Phone | + +------+ + | Mik Diego DO | PCP | | + +------+ + Reason for Visit + +--------+ + | Reason | Onset | Comments | | | Date | | + +--------+ + | Medication Question | 10/17/ | | | | 2019 | | + +--------+ + Encounter Details +--------+ + + + + | Date | Type | Department | Care Team | Description | +--------+ + + + + | 10/17/ | Telephone | [facility] | Reinaldo Sanchez | Medication Question | | 2019 | | [facility] | MD [address] | | | | [address] | [facility] [address] | | | | | [address] [facility] [address] | [place] [address] | | | | | [place], [place] | [phone] | | | | | [address] | | | | | | [phone] | | | +--------+ + + + [...] this encounter Miscellaneous Notes Telephone Encounter - Reinaldo Sanchez MD - 10/17/2018 11:52 AM PDTYes Jonathoni saranya signed by Reinaldo Sanchez MD at 10/17/2018 11:52 AM PDTTelephone Encounter - Seble Goodrich, Dobby Loom Weaver - [facility] currently on Levemir 55 units daily and novolog 12 units TID. He refused the novolog and are wanting clarification on insulin. Can they initiate house sl iding scale? dorobin dozier in this encounter Plan of Treatment +--------+ + + + + | Date | Type | Specialty | Care Team | Description | +--------+ + + + + | 10/16/ | Anti-coag | Anticoagulation | Brittany Zaragoza | | | 2019 | visit | | [address] | | | | | | [place], | | | | | | [place] [address] | | | | | | [phone] | | | | | | | | +--------+ + + + + documented as of this encounter Visit Diagnoses Not on filedocumented in this encounter"
--- OUTSIDE RECORDS SUMMARY | ~2019-10-12 | XMS | Encounter Summary ---
Demographics + + + | Address | [address] | | | [place] [address] | + + + | Home Phone [...] + | Sammi Kohler | ECON | [place] [address] | | + + + + + Care Team Providers + +------+ + | Care Carver And Checkerer Specials Name | Role | Phone | + +------+ + PCP | Unavailable | + +------+ + Encounter Details +--------+ + + + + | Date | Type | Department | Care Team | Description | +--------+ + + + + | 07/03/ | Hospital | [facility] | Jevon Key | Hernia | | 2013 | Encounter | [facility] | B, DO [address] | | | | | [address] | [address] | | | | | [place], [place] | [place] [address] | | | | | [address] | [phone] | | | | | [phone] | | | +--------+ + + + [...] documented as of this encounter H&P Notes Jevon Key DO - 07/03/2013 7:12 AM PDT H&P by Jevon Key DO at 07/03/13711 Author: Jevon Key DO Service: (none) Author Type: Physician Filed: 07/03/13711 Date of Service: 07/03/13711 Status: Signed Director Of Family Service [facility]: Jevon Key DO (Physician) Subjective: Patient ID: Kevyn Guzman is a 57 y.o. male. HPI This is a very pleasant 57-year-old male who is known to my service from her prior laparosc opic cholecystectomy who now presents with abdominal pain secondary to an umbilical hernia. He states that the pain is approximately 7-8/10 at its worst, radiates to his right side, it is associated with mild nausea, is not associated with any vomiting, is made worse by heavy lifting, is alleviated by nothing. Past Medical History Diagnosis Date Diabetes [...] - CHOLECYSTECTOMY; Surgeon: Jevon Key DO; Location: [facility] MAIN OR; Service: General; Laterality: N/A; Abdominal surgery Cholecystectomy Skin cancer excision 10/10/2012 Procedure: EXCISION - SKIN CANCER; Surgeon: Sy Fierro MD; Location: [facility] MA[facility] OR ; Service: Plastics; Laterality: Left; upper arm and upper back w/frozen section Esophagogastroduodenoscopy 03/03/2013 Procedure: ESOPHAGOGASTRODUODENOSCOPY; Surgeon: Howie Gibson MD; Location: [facility] ENDOSCOPY; S ervice: Gastroenterology; Laterality: N/A; Colonoscopy 03/04/2013 Procedure: COLONOSCOPY; Surgeon: Howie Gibson MD; Location: [facility] ENDOSCOPY; Service: Gastroe nterology; Laterality: N/A; Current Outpatient Prescriptions on File Prior to Visit Medication Sig Dispense Refill Albuterol Sulfate (VENTOLIN HFA IN) Inhale 2 puffs into the lungs as needed. ARIPiprazole (ABILIFY) 10 MG tablet Take 15 mg by mouth nightly. aspirin 81 MG chewable tablet Take 1 tablet by mouth daily with breakfast. 30 tablet 0 calcium carbonate (TUMS) 500 MG chewable tablet Take 500-1,000 mg by mouth daily as nee ded. For GERD cloNIDine (CATAPRES) 0.2 MG tablet Take 1 tablet by mouth 3 (three) times daily. 90 ta blet 0 docusate sodium (COLACE) 100 MG capsule [...] tablet by mouth daily. 30 tablet 0 loperamide (IMODIUM) 2 MG capsule Take 2 mg by mouth as needed. 4 mg after first loose stool, then 2 mg after each further loose stool Not to exceed 8 mg per day. LORazepam (ATIVAN) 0.5 MG tablet Take 0.5 [...] (two) times daily. 60 ca psule 1 paroxetine (PAXIL) 40 MG tablet Take 40 mg by mouth every morning. polyethylene glycol (GLYCOLAX) packet Take 17 g by mouth daily. polyethylene glycol (GLYCOLAX) powder DISSOLVE 17GM IN LIQUID AND DRINK BY MOUTH EVERY DAY 527 g 5 pravastatin (PRAVACHOL) 20 MG tablet Take 20 mg by mouth nightly. tiotropium (SPIRIVA) 18 MCG inhalation capsule Inhale 18 mcg into the lungs daily. No Known Allergies Blood pressure 144/84, pulse 58, temperature 97.5 F (36.4 C), temperature source Oral, resp. rate 18, SpO2 95.00%. BP 144/84 | Pulse 58 | Temp 97.5 F (36.4 C) (Oral) | Resp 18 | SpO2 95% Review of Systems Constitutional: Negative. HENT: Negative. Eyes: Negative. Respiratory: Negative. Cardiovascular: Negative. Gastrointestinal: Negative. Genitourinary: Negative. Musculoskeletal: Negative. Neurological: Negative. Hematological: [...] no guar ding and no CVA tenderness. A hernia is present. Hernia confirmed positive in the ventral ar ea (incisional, reducible). Musculoskeletal: Normal range of motion. Lymphadenopathy: He has no cervical adenopathy. Neurological: He is alert and oriented to person, place, and time. He has normal strength. No cranial nerve deficit or sensory deficit. Skin: Skin is warm, dry and intact. No abrasion and no rash noted. Psychiatric: He has a normal mood and affect. His speech is normal and behavior is normal. Judgment and thought content normal. He is attentive. Assessment and Plan: The patient has abdominal pain likely secondary to an incisional hernia. He was explained t o him in detail, the risks benefits and alternatives associated with a laparoscopic incision al hernia repair and informed consent was obtained. documented in thi s encounter Miscellaneous Notes Op Note - Jevon Key DO - 07/03/2013 10:26 AM PDT Op Note by Jevon Key DO at 07/03/13 1026 Author: Jevon Key DO Service: General Surgery Author Type: Physician Filed: 07/03/13 1031 Date of Service: 07/03/13 1026 Status: Signed Director Of Family Service Center: Jevon Key DO (Physician) [facility] Service: General Surgery Operative Note Kevyn Guzman 07/03/2013 10:27 AM Pre-operative Diagnosis: Reducible umbilical hernia Post-operative Diagnosis: Severe rectus diastasis Procedure(s): lap repair of diastasis recti Surgeon: JEVON KEY DO Meat And Seafood Manager(s): None Anesthesia: General endotrachial anesthesia Estimated Blood Loss: 5ml Other: Not applicable Indications: See pre-operative history and physical. Findings: Large Rectus diastasis Complications: None Description of Procedure: After the risks, benefits, and alternatives of laparoscopic umbilical hernia repair were ex plained to the patient, informed consent was obtained and placed in the chart. The patient w as brought into the operating suite, placed in the supine position, prepped, and draped in a sterile fashion. After adequate general endotracheal anesthesia administered by the Department of Anesthesia , a Veress needle was placed in the peritoneal cavity and a pneumoperitoneum the level of 15 mmHg was used to insufflate the abdomen and creat a pneumoperitoneum. A 5 mm Optiview troca r was used to enter the cavity in the left upper quadrant under direct visualization of the laparoscope. A left lower quadrant 5 mm port was placed in standard fashion. The patient's umbilicus was examined and there was no hernia defect at all. There was a sev ere rectus diastasis with intact peritoneum. Small stab incisions were made along the abdominal wall, and 0-vicryl suture was used to tu nnel laterally and approximate the rectus. This was done largely for cosmesis, as diastasis is not painful. Recurrence of this defect is likely to recur, but no surgical intervention will be warrante d with only a rectus muscle. The skin was closed with Dermabond over a 4-0 Monocryl subcuticular closure.The patient alida erated the procedure well and was sent to PACU in stable condition. Condition: Stable JEVON KEY DO 07/03/2013 documented in thi s encounter Plan of [...] | | | | | | [place] [address] | | | | | | [phone] | | | | | | | | +--------+ + + + + documented as of this encounter Procedures + +--------+ + + + | Procedure Name | Priori | Date/Time | Associated Diagnosis | Comments | | | ty | | | | + +--------+ + + + | POC GLUCOSE | Routin | 07/03/2013 | | Results for this | | | e | 10:47 AM | | procedure are in the | | | | PDT | | results section. | + +--------+ + + + | POC GLUCOSE | Routin | 07/03/2013 | | Results for this | | | e | 8:49 AM | | procedure are in the | | | | PDT | | results section. | + +--------+ + + + documented in this encounter Results POC Glucose (07/03/2013 10:47 AM PDT) + + + + + + | Component | Value | Ref Range | Performed | Pathologist | | | | | At | Signature | + + + + + + | Glucose, | 175 (H)Comment: Testing | 65 - 99 mg/dL | EXTERNAL | | | Fingerstick | performed at [facility] | [address] | | | [address];[place], [place] | | | | | | [address] | | | | + + + + + + + + | Specimen | + + | | + + + +---------+ + + | Performing | Address | City/State/Zipcode | Phone Number | | Organization | | | | + +---------+ + + | EXTERNAL LAB | | | | + +---------+ + + POC Glucose (07/03/2013 8:49 AM PDT) + + + + + + | Component | Value | Ref Range | Performed | Pathologist | | | | | At | Signature | + + + + + + | Glucose, | 145 (H)Comment: Testing | 65 - 99 mg/dL | EXTERNAL | | | Fingerstick | performed at [facility] | | LAB | | | | [address];[place] | | | | | | [address] | | | | + + + [...] + | Diagnosis | + + | Hernia Hernia of unspecified site of abdominal cavity without mention of obstruction | | or gangrene | + + documented in this encounter"
--- OUTSIDE RECORDS SUMMARY | ~2019-10-12 | XMS | Encounter Summary ---
Demographics + + + | Address | [address] | | | [place] [address] | + + + | Home Phone [...] Sammi Kohler | ECON | [place] [address] | | + + + + + Care Team Providers + +------+ + | Care Asset Liability Analyst Name | Role | Phone | + +------+ + | Holly Pack NP | PCP | | + +------+ + Reason for Visit + + + | Reason | Comments | + + + | Chest Pain | started 1 hour ago. per EMS they have visited him at home for CP | | | a lot lately, patient is hypertensive at time of EMS assessment | + + + Encounter Details +--------+ + + + + | Date | Type | Department | Care Team | Description | +--------+ + + + + | 09/11/ | Emergency | [facility] | Nick Judge | Chest pain in adult | | 2020 | | [facility]ENTER | MD [address] | (Primary Dx) | | | | EM[facility]Y [facility]ENTER | [address] | | | | | [address] | [place] [address] | | | | | [place], [place] | [phone] | | | | | [address] | | | | | | [phone] | | | +--------+ + + + [...] + + + | Blood Pressure | 177/86 | 09/12/2019 3:45 PM | | | | | PDT | | + + + + + | Pulse | 66 | 09/12/2019 3:45 PM | | | | | PDT | | + + + + + | Temperature | 36.6 C (97.9 F) | 09/12/2019 3:45 PM | | | | | PDT | | + + + + + | Respiratory Rate | 18 | 09/12/2019 3:45 PM | | | | | PDT | | + + + + + | Oxygen Saturation | 97% | 09/12/2019 3:45 PM | | | | | PDT [...] documented as of this encounter Discharge Instructions Jacqueline Rosado - 09/12/2019It was a pleasure caring for you today. As discussed, we thankfully did not find any life threatening or immediately threatening ca uses of your symptoms today in the emergency department- this certainly does not mean you sy mptoms are not severe, as there are not tests for every cause of symptoms or pain, and we on ly look for immediately threatening disease processes in the emergency department. Please return immediately with worsening chest pain, vomiting that won't stop, shortness of breath, or other new or worsening symptoms. AttachmentsThe following attachments cannot be sent through Care Everywhere.Chest Pain, Non cardiac (Tongan)documented in this encounter Medications at Time of [...] | | | | | | type ([facility]) | | | | | | [...] | | | | use of insulin ([facility]) | | | | | | [...] | | | | use of insulin ([facility]) | | | | | | [...] po daily | 30 | 11 | 07/01/20 | | | (COUMADIN) 5 mg | [...] documented as of this encounter ED Notes Nick Judge MD - 09/12/2019 2:52 PM PDTFormatting of this note might be differe nt from the original. [facility] Department of Emergency Medicine 2:52 PM PDT 09/12/2019 History of Present Illness Patient Identification Norah Gr is a 63 y.o. male. Patient information was obtained from Self. History/Exam limitations: None Chief Complaint Chief Complaint Patient presents with Chest Pain started 1 hour ago. per EMS they have visited him at home for CP a lot lately, patient is hypertensive at time of EMS assessment Patient presents with chest pain. Pain is described as: pain in center of the chest with a little bit of shooting pain that g oes into the shoulder Location: cardiovascular, center of chest Onset: this morning Exacerbating or alleviating factors: none Radiation: shooting pain into the shoulder Severity: moderate Associated symptoms: headache, light headedness, abdominal pain, eyes hurts, toes hurt, johanny r on head hurts Patient with history of ARF, diabetes, hypertension and chronic A fib reports to the ED via EMS with complaints of chest pain. Onset of symptoms was this morning, with a persistent co urse since that time. Patient describes the quality and location of the symptoms as pain in the center of the chest with a little bit of shooting pain into the shoulder. Pt reports he was trying to sleep this morning and his chest pain woke him up. He also reports he fell wit h no noticeable injuries. Patient also complains of headache, light headedness, abdominal pa in, eyes hurting, toes hurting, and hair on head hurting. Patient denies any other symptoms at this time. 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 Pt visited [facility] on 09/10/[address] [facility] ED 09/07/2019 for similar symptoms. Results found no sign of heart attack and pt was discharge d home. Past Medical History: Diagnosis Date Acute [...] Surgeon: Jevon Vargas DO; Location: [facility]; Service: General; Laterality: N/A; KNEE [...] Start Date End Date Taking? Authorizing Provider albuterol 90 mcg/puff inhaler Inhale 2 puffs into the lungs every 6 hours as needed for Whe ezing. 08/21/19 Holly Pack NP ARIPiprazole (ABILIFY) 5 mg tablet TAKE ONE TABLET BY MOUTH DAILY 09/09/19 Holly Pack NP atorvaSTATin (LIPITOR) 40 mg tablet [...] puffs into the lungs 2 times daily. 08/21/19 08/20/20 Holly Pack NP docusate-senna (SENOKOT-S) 50-8.6 mg per tablet Take 2 tablets by mouth 2 times daily Luigi Brooks MD Glucose Blood (BLOOD GLUCOSE TEST STRIPS) STRP For blood sugar testing 4 times daily 0 Holly Pack NP hydrALAZINE (APRESOLINE) 25 mg tablet Take 1 tablet by mouth 2 times daily. 08/21/19 Holly Pack NP insulin detemir (LEVEMIR FLEXTOUCH) [...] insulin administration 4 ti mes daily 07/23/19 Holly Pack NP Lancets (ACCU-CHEK MULTICLIX) MISC 1 each by Other route 4 times daily. 04/18/19 Holly malave NP lisinopril (PRINIVIL,ZESTRIL) 40 MG tablet Take 1 tablet by mouth Daily. 03/27/19 Holly Pack NP meclizine (ANTIVERT) 25 mg tablet Take 25 mg by mouth as needed. Historical Provider, metoprolol succinate (TOPROL-XL) 50 mg 24 hr tablet TAKE ONE TABLET BY MOUTH TWICE DAILY 09/09/19 Holly Pack NP NIFEdipine (ADALAT CC) 60 MG 24 hr tablet Take 1 tablet by mouth Daily. 07/22/19 Janell l Provider, psyllium, sugar free, (METAMUCIL FIBER) packet Take 1 packet by mouth Daily. 08/21/19 Agnes Pack NP warfarin (COUMADIN) 5 mg tablet Take by mouth Daily 7.5 mg every Mon, Wed, Fri; 5 mg all ot her days . Historical Provider, warfarin (COUMADIN) 5 mg tablet Take 1 tab po daily or as directed by coumadin clinic based on INR. 08/07/19 CITLALY Leonard Allergies Allergen Reactions Nitroglycerin Swelling Tongue swelling [...] file Gets together: Not on file Attends amish service: Not on file Active member of [...] Brother Heart Problems Review of Systems Constitutional: Positive for "hair on head hurting", feeling light headed Negative for fever, chills Eyes: Positive for eyes hurting Negative for vision changes Nose: Negative for congestion, nosebleeds Throat: Negative for sore throat CV/Resp: Positive for chest pain Negative for ctlzilzat-oj-alphtj, cough GI: Positive for abdominal pain Negative for nausea, vomiting, or diarrhea : Negative for urinary problems Musculoskeletal: Positive for pain in the toes Negative for back pain, joint pain Skin: Negative for rash Neuro/Psych: Positive for headache Endo/heme/Lymph: Negative for swollen lymph nodes, easy bruising All other systems reviewed and negative except as noted. Physical Exam Temp: 36.6 C (97.9 F) Pulse: 70 Resp: 18 BP: 197/85 SpO2: 96 % Pulse Oximetry interpretation: Normal General: Alert, NAD Eyes: Normal inspection, EOMI, PERRL ENT: Normal pharynx Neck: Supple, no meningismus CV: Regular rate, rhythm. Normal heart tones. Respiratory: No respiratory distress. Lungs clear to auscultation bilaterally Abdomen: Soft, non-tender, non-distended. No guarding or rebound : Deferred Rectal: Deferred Back: Normal inspection, normal ROM Extremities: Atraumatic, normal ROM, no significant lower extremity edema Skin: Warm, dry. No rash Neuro: No gross focal deficits. Motor and sensory grossly intact Psych: Anxious appearing, slurred speech Medical Decision Making and Emergency Department Course ED Department Course 2:52 PM Evaluated pt and discussed ED course. Pt is agreeable. 3:30 PM BMP shows an elevated blood glucose of 250, potassium of 3.2. CBC shows hemoglobin of 12.9. All other lab results appear unremarkable. 3:50 PM I have discussed my clinical impression and treatment plan with the pt. We have spe cifically discussed the signs and symptoms that would constitute the need for an immediate r eturn to the ED, the importance of continued [...] or further ED treatment at this time. In summary, this is a 63-year-old gentleman with history of hypertension, A. fib maintained on a thinner who presents with multiple complaints, predominantly upper left-sided chest pa in, dizziness, but also reporting intermittent toe pain, hair pain, and diffuse abdominal pa in. Given his chest discomfort is his primary concern, I did consider ACS- however, this is less likely given grossly normal MIBI 2 years ago, negative troponin despite >8 hours of sy mptoms, EKG without ischemic changes compared to prior. Doubt pulmonary embolism given no u nilateral leg swelling, no pleurisy, no dyspnea. His pain is not positional, doubt pericard itis. If troponin, labs unremarkable will be safe for discharge. Temp: 36.6 C (97.9 F) Pulse: 66 Resp: 18 BP: 177/86 SpO2: 97 % Records Reviewed Old medical records. Nursing notes. Laboratory Evaluation Results Procedure Component Value Ref Range Date/Time Troponin I [[id number]] Collected: 09/12/19 150 Order Status: Completed Specimen: Blood Updated: 09/12/19 1538 Troponin I 0.027 0.00 - 0.04 ng/mL Basic Metabolic Panel [[id number]] (Abnormal) Collected: 09/12/19 1501 Order Status: Completed Specimen: Blood Updated: 09/12/19 1538 Na 141 135 - 145 mmol/L K 3.2 3.5 - 4.9 mmol/L Cl 105 99 - 109 mmol/L CO2 29 23 - 32 mmol/L Anion Gap 10 5 - 20 mmol/L Glucose 250 65 - 99 mg/dL BUN 12 8 - 25 mg/dL Creatinine 0.86 0.70 - 1.30 mg/dL BUN/Creatinine Ratio 14 Calcium 8.7 8.5 - 10.5 mg/dL Estimated GFR >60 >60 mL/min/1.73m2 CBC no Differential [[id number]] (Abnormal) Collected: 09/12/19 1501 Order Status: Completed Specimen: Blood Updated: 09/12/19 1533 WBC 10.52 3.80 - 11.00 K/uL Red Blood Cells 4.81 4.20 - 5.70 M/uL Hemoglobin 12.9 13.2 - 17.0 g/dL Hematocrit 39.2 39.0 - 50.0 % MCV 81.5 80.0 - 100.0 fl MCH 26.8 27.0 - 34.0 pg MCHC 32.9 32.0 - 35.5 g/dL RDW-SD 43.8 37 - 53 fl Platelet Count 259 150 - 400 K/uL MPV 10.0 fl Radiology and EKG Evaluation Imaging Results None Medications - No data to display ED Diagnostic Impression: 1. Chest pain in adult Disposition: ED Disposition ED Disposition Condition Comment Discharge Stable Follow-up Information Schedule an appointment as soon as possible for a visit with Holly Pack NP. Specialty: Nurse Practitioner - Gerontology Why: As needed Contact information: [address] [facility] [phone] Go to [facility]. Specialty: Emergency Medicine Why: If symptoms worsen Contact information: [address] [facility] [address] Discharge Medications: Discharge Medication List as of 09/12/2019 3:43 PM Attending Provider Note: I, Nick Judge MD personally performed the services desc ribed in this documentation, as scribed by Jacqueline Mims in my presence, and it is both acc urate and complete. Chart Reviewed and Completed. Scribe: I Kari Head, scribing for and in the presence of Nick Judge MD. Completed by: Kari Head 09/12/2019 4:12 PM PDT Nick Judge MD 09/13/19 1250 Luna Daley RN - 09/12/2019 2:49 PM PDTBed: [id number] Expected date: 09/12/19 Expected time: Means of arrival: Comments: 1722 documented in this encounter Plan of Treatment +--------+ + + + + | Date | Type | Specialty | Care Team | Description | +--------+ + + + + | 10/16/ | Anti-coag | Anticoagulation | Brittany Zaragoza | | | 2019 | visit | | [address] | | | | | | [place], | | | | | | [place] [address] | | | | | | [phone] | | | | | | | | +--------+ + + + + + +------+--------+ + + | Name | Type | Priori | Associated Diagnoses | Date/Time | | | | ty | | | + +------+--------+ + + | ED INFORMATION | COLTON | Routin | | 09/12/2019 2:50 PM | | EXCHANGE | | e | | PDT | + +------+--------+ + + documented as of this encounter Procedures + +--------+ + + + | Procedure Name | Priori | Date/Time | Associated Diagnosis | Comments | | | ty | | | | + +--------+ + + + | ECG 12 LEAD | Routin | 09/12/2019 | | Results for this | | | e | 3:09 PM | | procedure are in the | | | | PDT | | results section. | + +--------+ + + + | TROPONIN I | STAT | 09/12/2019 | | Results for this | | | | 3:01 PM | | procedure are in the | | | | PDT | | results section. | + +--------+ + + + | CBC NO DIFFERENTIAL | STAT | 09/12/2019 | | Results for this | | | | 3:01 PM | | procedure are in the | | | | PDT | | results section. | + +--------+ + + + | BASIC METABOLIC | STAT | 09/12/2019 | | Results for this | | PANEL | | 3:01 PM | | procedure are in the | | | | PDT | | results section. | + +--------+ + + + | ED INFORMATION | Routin | 09/12/2019 | | | | EXCHANGE | e | 2:50 PM | | | | | | PDT | | | + +--------+ + + + +---+--------+ | | | | | Proced | | | ure | | | Note - | | | Richard, | | | Lab In | | | | | | Hlseve | | | n - | | | 09/11/ | | | 2020 | | | 2:51 | | | PM PDT | | [...] | | | ON?08/ | | | | | | 0 | | | 14:49? | | | GR, | | | NORAH | | | | | | M?MRN: | | | | | | [id number] | | | [id number] | | | riteri | | | a Met | | | | | | Medica | | | id 5 | | | in 12 | | | 2 in | | | 2 10 | | | in 12 | | | PDMP | | | Care | | | Guidel | | | andrei | | | 3 in | | | 60Secu | | [...] | | | [facility] | [facility] | | | alLast | | | | | | Update | | | d: | | | 09/10/19 | | | 8:27 | | | AM | | | Care | | | Coordi | | | nation | | | : | | | PATIEN | | | T HAS | | | BEEN | | | TO | | | MULTIP | | | LE | | | FACILI | | | TIES- | | | REQUES | | | TING A | | | RIDE | | | TO AND | | | FROM | | | PENDLE | | | TON TO | | | TRI | | | CITIES | | | | | | LOCATI | | | ONS. | | | PATIEN | | | T HAS | | | AN | | | EXTENS | | | [place] | | | HISTOR | | | Y OF | | | OVER | | | UTILIZ | | | ING | | | AMBULA | | | NCE | | | SERVIC | | | ES. | | | PATIEN | | | T HAS | | | BEEN | | | CONTAC | | | MARVIN BY | | | CASE | | | MANAGE | | | MENT | | | SERVIC | | | ES - | | | DISCUS | | | SED | | | MULTIP | | | LE | | | CONCER | | | NS | | | WITH | | | NOT | | | FOLLOW | | | ING UP | | | WITH | | | PCP | | | AND | | | COMPLI | | | ANCE | | | OF | | | ONGOIN | | | G | | | MEDICA | | | TIONS- | | | ALONG | | | WITH | | | EXTENS | | | [place] | | | HISTOR | | | Y OF | | | ER | | | VISITS | | | TO | | | HAVE | | | RIDES | | | PROVID | | | ED TO | | | ALTERN | | | ATIVE | | | LOCATI | | | ONS. | | | DO | | | NOT | | | PROVID | | | E | | | PATIEN | | | T | | | TRANSP | | | ORTATI | | | ON - | | | UNLESS | | | | | | MEDICA | | | LLY | | | NECESS | | | MYRA | | | The | | | se are | | | | | | guidel | | | [...] | | | ing | | | care.E | | | D Care | | | | | | Guidel | | | [...] | | | presen | | | marvin to | | | the | | [...] | | | Acuity | | | Good | | | [facility] | | | rd | | | Health | | | 1 0 | | | [facility] | | | South[facility] | | | idge | | | Hospit | | | al 1 0 | | | | | | [facility] | | | | | | Region | | | al | | | Medica | | | l | | | Center | | | 25 0 | | | [place] | | | s | | | Medica | | | l | | | Center | | | 3 0 | | | [facility] | | | sd | | | Commun | | | ity | | | Hospit | | | al 1 0 | | | [facility] | | y | | | Hospit | | | al 2 0 | | | Total | | | 33 0 | | | Note: | | [...] | | out | | | of 33 | | | in the | | [...] | | int | | | Aug 6, | | | 2020 | | | [facility] | | | | | | Region | | | al | | | [facility] | | | [place] | | | [place] | | | Emerge | | | ncy | | | Chest | | | Pain | | | Aug | | | 4, | | | 2020 | | | Good | | | [facility] | | | rd | | | Health | | | | | | [place] | | | [place] | | | Emerge | | | ncy | | | CHEST | | | | | | PRESSU | | | RE | | | Other | | | chest | | | pain | | | Aug 3, | | | 2020 | | | [facility] | | | [facility] | | | [place] | | | [place] | | | Emerge | | | ncy | | | Chief | | | Compla | | | int: | | | WEAKNE | | | SS | | | Aug 1, | | [...] | | | ncy | | | Type | | | [...] | | | n | | | Other | | | chest | | | pain | | | | | | Freque | | | ncy of | | | | | | mictur | | | ition | | | [facility] | | | [...] | | | St. | | | [facility] | | | y H. | | [...] lation | | | | | | Recent [...] | | | St. | | | [facility] | | | y H. | | [...] | | | pulmon | | | myra | | | emboli | | | sm | | | May | | | 27, | | | 2020 | | | [facility] | | | | | | Region | | | al | | | [facility] | | | [place] | | | [place] | | | [employer] | | | al | | | Medici | | | ne | | | Chroni | | | c | | | obstru | | | ctive | | | pulmon | | | myra | | | diseas | | | [...] | | | [place] | | | [employer] | | | al | | [...] | | | HOLLY, | | | ACID CLEANER | | | Nurse | | | [...] | | | /notif | | | [id number] | | | [id number] | | | [id number] | | | [id number] | | | [id number] | | | [id number] | | | a0 | | | PLEASE | | | [...] | +---+--------+ documented in this encounter Results ECG 12 lead (09/12/2019 3:09 PM PDT) + + + + + + | Component | Value | Ref Range | Performed | Pathologist | | | | | At | Signature | + + + + + + | VENTRICULAR | 68 | BPM | [facility] | | | RATE EKG | | | | | + + + + + + | ATRIAL RATE | 68 | BPM | [facility] | | [...] + + + + | Q-T | 474 | ms | [facility] | | | INTERVAL | | | | | | (CORRECTED) | | | | | + + + + + + | P WAVE AXIS | 26 | degrees | [facility] | | + + + + + + | QRS AXIS | 41 | degrees | [facility] | | + + + + + + | T AXIS | -22 | degrees | [facility] | | + + + + + + | INTERPRETAT | Sinus rhythm with | | [facility] | | | ION TEXT | Premature atrial | | | | | | complexesT wave | | | | | | abnormality, consider | | | | | | inferior | | | | | | ischemiaProlonged | | | | | | QTAbnormal ECGWhen | | | | | | compared with ECG of | | | | | | 07-SEP-2019 06:41,T wave | | | | | | inversion more evident | | | | | | [...] | | | | | ONLY, -COMPUTER ([id number]), | | | | | | news video editor SANTHOSH VÁSQUEZ | | | | | | ([id number]) on 09/12/2019 | | | | | | 4:11:12 PM | | | | + + [...] + +---------+ + + Basic Metabolic Panel (09/12/2019 3:01 PM PDT) + + + + + + | Component | Value | Ref Range | Performed | Pathologist | | | | | At | Signature | + + + + + + | Na | 141 | 135 - 145 | [facility] | | | | | mmol/L | LABORATORY | | + + + + + + | K | 3.2 (L) | 3.5 - 4.9 | [facility] | | | | | mmol/L | LABORATORY | | + + + + + + | Cl | 105 | 99 - 109 mmol/L | [facility] | | | | | | LABORATORY | | + + + + + + | CO2 | 29 | 23 - 32 mmol/L | [facility] | | | | | | LABORATORY | | + + + + + + | Anion Gap | 10 | 5 - 20 mmol/L | [facility] | | | | | | LABORATORY | | + + + + + + | Glucose | 250 (H) | 65 - 99 mg/dL | [...] | 8.7 | 8.5 - 10.5 | [facility] | | | | | mg/dL | LABORATORY | | + + + + + + | Estimated | >60Comment: GFR <60: | >60 | [facility] | | | GFR | [...] | | | | | | [facility] traceable | | | | | | equation.Testing | | | | | | performed at [facility] [place] | | | | | | [facility];[place], [place] | | | | | | [id number] | | | | + + + + + + + + | Specimen | + + | Blood | + + + + + + + | Performing | Address | City/State/Zipcode | Phone Number | | Organization | | | | + + + + + | [facility] | [address] | [place] [address] | [phone] | + + + + + CBC no Differential (09/12/2019 3:01 PM PDT) + + + + + + | Component | Value | Ref Range | Performed | Pathologist | | | | | At | Signature | + + + + + + | WBC | 10.52 | 3.80 - 11.00 | [facility] | | | | | K/uL | LABORATORY | | + + + + + + | Red Blood | 4.81 | 4.20 - 5.70 | [facility] | | | Cells | | M/uL | LABORATORY | | + + + + + + | Hemoglobin | 12.9 (L) | 13.2 - 17.0 | [facility] | | | | | g/dL | LABORATORY | | + + + + + + | Hematocrit | 39.2 | 39.0 - 50.0 % | [facility] | | | | | | LABORATORY | | + + + + + + | MCV | 81.5 | 80.0 - 100.0 fl | [facility] | | | | | | LABORATORY | | + + + + + + | MCH | 26.8 (L) | 27.0 - 34.0 pg | [facility] | | | | | | LABORATORY | | + + + + + + | MCHC | 32.9 | 32.0 - 35.5 | [facility] | | | | | g/dL | LABORATORY | | + + + + + + | RDW-SD | 43.8 | 37 - 53 fl | [facility] | | | | | | LABORATORY | | + + + + + + | Platelet | 259 | 150 - 400 K/uL | [facility] | | | Count | | | LABORATORY | | + + + + + + | MPV | 10.0Comment: NO NORMAL | fl | [facility] | | | | RANGE ESTABLISHEDTesting | | LABORATORY | | | | performed at [facility] [place] | | | | | | [address];[place] | | | | | | [id number] | | | | + + + + + + + + | Specimen | + + | Blood | + + + + + + + | Performing | Address | City/State/Zipcode | Phone Number | | Organization | | | | + + + + + | [facility] | [address] | [place] [address] | [phone] | + + + + + Troponin I (09/12/2019 3:01 PM PDT) + + + + + + | Component | Value | Ref Range | Performed | Pathologist | | | | | At | Signature | + + + + + + | Troponin I | 0.027Comment: 0.04 | 0.00 - 0.04 | [facility] | | | | ng/mL [...] at | | | | | | [facility] [place];[address];[place] [address] | | | | + + + + + + + + | Specimen | + + | Blood | + + + + + + + | Performing | Address | City/State/Zipcode | Phone Number | | Organization | | | | + + + + + | [facility] | [address] | [place] [address] | [phone] | + + + + + documented in this encounter Visit Diagnoses + + | Diagnosis | + + | Chest pain in adult - Primary | + + documented in this encounter
--- OUTSIDE RECORDS SUMMARY | ~2019-10-12 | XMS | Encounter Summary ---
Demographics + + + | Address | [address] | | | [place] [address] | + + + | Home Phone [...] + | Sammi Kohler | ECON | [place] [address] | | + + + + + Care Team Providers + +------+ + | Care Cleater Name | Role | Phone | + +------+ + PCP | Unavailable | + +------+ + Encounter Details +--------+ + + + + | Date | Type | Department | Care Team | Description | +--------+ + + + + | 05/09/ | Emergency | [facility] | Kevyn Barker MD | Paresthesias | | 2015 | | [facility] | [address] | | | | | EMERGENCY CENTER | [place] [address] | | | | | [address] | [phone] | | | | | [place], [place] | | | | | | [address] | | | | | | [phone] | | | +--------+ + + + [...] documented as of this encounter ED Notes Kenrick Transluis f, Provider Unknown - 05/09/2014 12:14 PM PDTFormatting of this note m ight be different from the original. ED Notes by Bambi Gama RN at 05/09/141213 Author: Bambi Gama RN Service: (none) Author Type: Registered Nurse Filed: 05/09/141214 Date of Service: 05/09/141213 Status: Signed Offshore Wind Turbine Technician: Bambi Gama RN (Registered Nurse) On d/ c pt moving all extremeties spontaneously and without apparent diff Bambi Gama RN 05/09/141214 onver ivana Transaction, Provider Unknown - 05/09/2014 12:00 PM PDT ED Notes by Bambi Gama RN at 05/09/14 1200 Author: Bambi Gama RN Service: (none) Author Type: Registered Nurse Filed: 05/09/14 1214 Date of Service: 05/09/14 1200 Status: Signed Offshore Wind Turbine Technician: Bambi Gama RN (Registered Nurse) Pt moving all extremeties equally Bambi Gama RN 05/09/14 1214 onver ivana Transaction, Provider Unknown - 05/09/2014 11:57 AM PDT ED Notes by Bambi Gama RN at 05/09/14 1157 Author: Bambi Gama RN Service: (none) Author Type: Registered Nurse Filed: 05/09/14 1158 Date of Service: 05/09/14 1157 Status: Signed Offshore Wind Turbine Technician: Bambi Gama RN (Registered Nurse) Called for cabulance for pt Bambi Gama RN 05/09/14 1158 onver ivana Transaction, Provider Unknown - 05/09/2014 11:33 AM PDT ED Notes by Bambi Gama RN at 05/09/14 1133 Author: Bambi Gama RN Service: (none) Author Type: Registered Nurse Filed: 05/09/14 1135 Date of Service: 05/09/14 1133 Status: Signed Offshore Wind Turbine Technician: Bambi Gama RN (Registered Nurse) Appears to move l arm and leg sporadically. Appears to forget he can't move l arm and leg a t times and moves both spontaneously. Speech clear, no facial droop Bambi Gama RN 05/09/14 1135 Kevyn Rivas MD - 05/09/2014 11:25 AM PDTFormatting of this note might be different from the or iginal. ED Provider Notes by Kevyn Barker MD at 05/09/14 1125 Author: Kevyn Barker MD Service: Emergency Department Author Type: Physician Filed: 05/09/14 1251 Date of Service: 05/09/141124 Status: Signed Offshore Wind Turbine Technician: Kevyn Barker MD (Physician) [facility] Department of Emergency Medicine No flowsheet data found. History of Present Illness Patient Identification Kevyn Guzman is a 58 y.o. male. Patient information was obtained from patient and EMS personnel. History/Exam limitations: none. Patient presented to the Emergency Department [facility] Room:1106/1106 Chief Complaint Chief Complaint Patient presents with Numbness left side. seen monday for similar complaints. onset today at 1025 58 y.o. male with left-sided numbness. Patient states that for quite sometime he has been having intermittent episodes of left-sided numbness and tingling. It starts in his shoulder and side of the left neck that radiates to his face and on the left side of the arm. A com e and go and last for a few hours typically. He was in the emergency department last night with similar symptoms where he had a negative head CT. He was admitted to the hospital thre e days ago where he had negative head CT and MRI. Neurology was involved in there was no ch levi in the patient's management. Patient feels that he may have had another episode today started about an hour ago for a few minutes. States that he feels fine now other than a lit tle bit of tingling in the left shoulder. Symptoms are described as moderate in worsen mild currently. Primary Care Doctor: JERRELL GUTIÉRREZ Past Medical [...] - CHOLECYSTECTOMY; Surgeon: Jevon Vargas DO; Location: [facility] MAIN OR; Service: General; Laterality: N/A; Abdominal surgery Cholecystectomy Skin cancer excision 10/10/2012 Procedure: EXCISION - SKIN CANCER; Surgeon: Sy Fierro MD; Location: [facility] MAIN OR ; Service: Plastics; Laterality: Left; upper arm and upper back w/frozen section Esophagogastroduodenoscopy 03/03/2013 Procedure: ESOPHAGOGASTRODUODENOSCOPY; Surgeon: Howie Gibson MD; Location: [facility] ENDOSCOPY; S ervice: Gastroenterology; Laterality: N/A; Colonoscopy 03/04/2013 Procedure: COLONOSCOPY; Surgeon: Howie Gibson MD; Location: [facility] ENDOSCOPY; Service: Gastroe nterology; Laterality: N/A; Upper gastrointestinal endoscopy Skin biopsy Hernia repair 07/03/2013 Procedure: LAPAROSCOPIC - HERNIA - INCISIONAL; Surgeon: Jevon Vargas DO; Location: [facility] MAIN OR; Service: General; Laterality: N/A; Skin lesion excision Left 05/05/2014 Procedure: EXCISION - LESION - FROZEN SECTION; Surgeon: Sy Fierro MD; Location: [facility] MAIN OR; Service: Plastics; Laterality: Left; forearm Prior to Admission medications Medication Sig Start Date End Date Taking? Authorizing Provider Albuterol Sulfate (VENTOLIN HFA IN) Inhale 2 puffs into the lungs as needed. 108 mcg/act Historical Provider Tzapf-O-Vvlpslpbyjeup (BEANO) TABS Take 150 Units by mouth [...] 100 mg by mouth nightly. Historical Provider imvffflgr-zmfhirdd-qjpvnsesd hydroxide-simethicone Take 40 mLs by mouth daily [...] Problems Brother Review of Systems Positive for: Left sided paresthesias. No fever, chills, nausea or vomiting. No vision changes, difficulty breathing. No headache, chest pain, abdominal pain, rash. No difficulty with urination or bowel movements. No other complaints. See HPI for further relevant details. All systems otherwise negative, except as recorded above and as recorded in the HPI. Physical Exam Filed Vitals: 05/09/14 1124 05/09/14 1204 BP: 171/82 167/79 Pulse: 76 79 Temp: 98.6 F (37 C) TempSrc: Oral Resp: 16 16 Height: 1.803 m (5' 10.98") Weight: 115.667 kg (255 lb) SpO2: 96% 98% INTERPRETATION OF VITALS Pulse Oximetry interpretation: Normal [...] Neuro: Moves all extremities. No gross deficit. Symmetric strength and sensation. Medical Decision Making and Emergency Department Course ED Department Course: 11:26 AM Kevyn Guzman is a 58 y.o. male who presents with a chief complaint of left-sided paresthes ias. Differential diagnosis includes radiculopathy, TIA, CVA, other. Patient's clinically well-appearing with an unremarkable physical exam. Patient frequents our emergency departme for similar symptoms. He has had a significant workup within the last several days with no evidence of stroke even when he was having the symptoms.. ECG normal. We will perform a road test. Patient completed his road test with no difficulty. At this time I feel he is stable for o utpatient management.Typical anticipatory guidelines and strict return to Emergency Departme nt precautions have been given. All involved are understanding of and in agreement with this plan. All questions have been addressed to the best of my ability. Records Reviewed Old medical records. Previous electrocardiograms. Nursing notes. Ambulance run sheet. Previous radiology studies. Laboratory Evaluation Results None Lab Interpretation I have reviewed lab results from the emergency department workup and abnormal results have been posted to the chart. Pertinent positive and negative findings have been addressed appr opriately. Radiology and EKG Evaluation Imaging Results None ECG from 1129: Sinus rhythm at 75 bpm. MT, QRS, QT, and axis are normal. No ST segment crista vations or depression. No significant Q waves. Good R wave progression through the precordia l leads. Meets No STEMI criteria for ischemia. In comparison with an old ECG from 05/08/14 t here are no significant changes. This study has been independently viewed and interpreted by me. ED Diagnosis Final diagnosis Paresthesias Disposition: ED Disposition Orders Discharge Condition at discharge: Stable Follow-up Information Follow up With Details Comments Contact Info Jerrell Gutiérrez DO Schedule an appointment as soon as possible for a visit [address] [facility] [address] [facility] [address] Aakash Rhodes MD [address] [facility] [address] Discharge Medications: Discharge Medication List as of 05/09/2014 11:54 AM This document has been prepared with a voice recognition system. The possibility of "sound alike" measurement operator errors, addition and/or deletions may occur. If there is any question p lease contact the author of the document. Procedures Additional Documentation Procedures Kevyn Barker MD 05/09/14 1251 onversion Transactio n, Provider Unknown - 05/09/2014 11:21 AM PDT ED Notes by Mili Goode RN at 05/09/14 112 Author: Mili Goode RN Service: (none) Author Type: Registered Nurse Filed: 05/09/14 1121 Date of Service: 05/09/141120 Status: Signed Offshore Wind Turbine Technician: Mili Goode, RN (Registered Nurse) Bed: 1106 Expected date: Expected time: Means of arrival: Comments: Genaro wilson in this encounter Plan of Treatment +--------+ + + + + | Date | Type | Specialty | Care Team | Description | +--------+ + + + + | 10/16/ | Anti-coag | Anticoagulation | Brittany Zaragoza | | | 2019 | visit | | [address] | | | | | | [address], | | | | | | [place] [address] | | | | | | [phone] | | | | | | | | +--------+ + + + + documented as of this encounter Procedures + +--------+ + + + | Procedure Name | Priori | Date/Time | Associated Diagnosis | Comments | | | ty | | | | + +--------+ + + + | ECG 12 LEAD | Routin | 05/09/2014 | | Results for this | | | e | 11:29 AM | | procedure are in the | | | | PDT | | results section. 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
--- OUTSIDE RECORDS SUMMARY | ~2019-10-12 | XMS | Encounter Summary ---
Demographics + + + | Address | [address] | | | [place] [address] | + + + | Home Phone [...] + | Sammi Kohler | ECON | [place] [address] | | + + + + + Care Team Providers + +------+ + | Care Rn Observation Name | Role | Phone | + +------+ + PCP | Unavailable | + +------+ + Encounter Details +--------+ + + + + | Date | Type | Department | Care Team | Description | +--------+ + + + + | 04/18/ | [facility] | [facility] | Elizabeth Ochoa, | Chest pain; COPD | | 2014 - | Encounter | MEDICAL [facility]ENTER | MD [address] | (chronic obstructive | | | | CLINICAL DECISION | [place] [address] | pulmonary disease) | | 04/20/ | | [address] | [phone] | ([facility]); Diabetes | | 2013 | | [place], [place] | | mellitus type II; | | | | [address] | | HTN (hypertension); | | | | [phone] | | Hyperlipidemia; | | | | | | Chest pain at rest; | | | | | | Sinus bradycardia on | | | | | | ECG; Hyperglycemia | +--------+ + + + + Social [...] documented as of this encounter Discharge Summaries Conversion Transaction, Provider Unknown - 04/20/2013 10:33 AM PDTFormatting of this note m ight be different from the original. Discharge Summaries by Patti Deleon RN at 04/20/13 1033 Author: Patti Deleon RN Service: (none) Author Type: Registered Nurse Filed: 04/20/13 1035 Date of Service: 04/20/13 1033 Status: Signed Nurse School: Patti Deleon RN (Registered Nurse) I called the assisted living and talked to Simón's RN and told her that Simón had not taken any of his pills for the morning and would need to take them there as he had promised. onver ivana Transaction, Provider Unknown - 04/20/2013 10:10 AM PDT Discharge Summaries by Patti Deleon RN at 04/20/13 1010 Author: Patti Deleon RN Service: (none) Author Type: Registered Nurse Filed: 04/20/13 1013 Date of Service: 04/20/13 1010 Status: Signed Nurse School: Patti Deleon RN (Registered Nurse) Discharge paper work faxed to [facility],after calling them and notifyi ng them that patient has been discharged and will be there via taxi.taxi has been notified a nd patient ,in a hurry to go and play Bingo,has been escorted via wheel chair to the [facility] t o wait for taxi. Bang Mcleod MD - 04/20/2013 9:45 AM PDT Discharge Summaries by Bang Mast MD at 04/20/1379 Author: Bang Mast MD Service: (none) Author Type: Physician Filed: 04/20/13 1017 Date of Service: 04/20/1345 Status: Signed Nurse School: Bang Mast MD (Physician) [facility] Service: Hospitalist Physician Discharge Summary Patient ID: Norah Gr 1955 57 y.o. Admit date: 04/18/2013 Discharge date: 04/20/2013 Admitting Physician: Elizabeth Ochoa MD Discharge Physician: BANG MAST MD Consultants: Treatment Team: Admitting Provider: Elizabeth Ochoa MD Primary Discharge Diagnoses: COPD (chronic obstructive pulmonary disease) [496] Diabetes mellitus type II [250.00] Hyperlipidemia [272.4] Chest pain [786.50] HTN (hypertension) [401.9] Hyperglycemia [790.29] Chest pain at rest [786.50] Sinus bradycardia on ECG [427.89] HPI and Hospital Course: The patient is a 57 y.o. male with significant past medical history of diabetes mellitus, hypertension, hyperlipidemia, obstructive sleep apnea noncompliant with CPAP, and paroxysmal atrial fibrillation. In February 2013, the patient had a GI bleed. The patient currently on Plavix for atrial fibrillation, not on long-term anticoagulation with Coumadin. Clairea lly delayed and lives in a prison. The patient presented to the ED with chief complaint of chest pain Described as "a jabbing pain", 3/10 in intensity, localized without radiation to the left arm, jaw, intrascapular a quang. It was episodic. Each episode lasted for a couple of minutes and resolved spontaneously . It is associated with mild shortness of breath and intermittent sweating. Some nausea, wit hout vomiting, lightheadedness, syncope. He denies pleuritic chest pain. He had similar epis odes in 2011. He underwent a stress test. It was normal He denied any hematemesis, hematoche marquise, or melena. No epigastric pain. In the ED got aspirin and nitroglycerin and that helped resolve the pain. Workup in the ED showed normal EKG, sinus bradycardia, without acute ST el evation or depression to suggest injury or ischemia. Admitted with ACS The patient underwent rule out MA protocol with negative cardiac biomarkers.All sets of cardiac enzymes were negative. LFTs were normal. CBC with differential normal. CMP showed el evated blood glucose of 212. No DKA. He subsequently underwent nuclear medicine myocardial p erfusion study which likely showed negative results. The study was slightly limited due to t he patient's positional preferences during the test. Although his left ventricular ejection fraction was 55% without evidence of obvious reversibility. The patient had no further chest pain. Will be discharged back to the facility after 1000 hours today Past Medical History: Past Medical History Diagnosis [...] - CHOLECYSTECTOMY; Surgeon: Jevon Vargas DO; Location: [facility] MAIN OR; Service: General; Laterality: N/A; Abdominal surgery Cholecystectomy Skin cancer excision 10/10/2012 Procedure: EXCISION - SKIN CANCER; Surgeon: Sy Fierro MD; Location: [facility] MAIN OR ; Service: Plastics; Laterality: Left; upper arm and upper back w/frozen section Esophagogastroduodenoscopy 03/03/2013 Procedure: ESOPHAGOGASTRODUODENOSCOPY; Surgeon: Howie Gibson MD; Location: [facility] ENDOSCOPY; S ervice: Gastroenterology; Laterality: N/A; Colonoscopy 03/04/2013 Procedure: COLONOSCOPY; Surgeon: Howie Gibson MD; Location: [facility] ENDOSCOPY; Service: Gastroe nterology; Laterality: N/A; Discharged Condition: Stable for discharge as stated above. Significant Diagnostic Studies: Xr Chest Pa And Lateral 04/18/2013 History: 57 year-old male with pain. Technique: Frontal and lateral radiographi c examination of the chest. 13 March 2013, prior study for comparison. Findings: Cardiome diastinum is normal. Lungs are symmetrically inflated without pneumothorax, infiltrate, or effusion. Asymmetric disease the left lung base is less, appears to be an asymmetric focus o f atelectasis or scarring. 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 Patient's symptoms not explained by this technique. Nm Myocardial Perfusion Spect (stress And Rest) 04/19/2013 NORAH Andrea SIMÓN NM MYOCARDIAL PERFUSION SPECT - STRESS AND REST 04/19/2013 2:28 PM HISTORY: 57 years. Male. Chest pain. TECHNIQUE: A same day, dual-isotope protocol was us ed. For the resting portion of the study the patient was injected intravenously with 9.5 mC i of technetium 99 labeled Myoview. Gated SPECT imaging was performed in the supine positio n. The patient was then pharmacologically stressed with 0.4 mg of regadenoson intravenously according to protocol. Resting heart rate vasiliy from 51 beats/min to 82 beats/min which was 50% of the maximum age-predicted heart rate. At the point of maximum stress, the patient r eceived 45 mCi of technetium 99m labeled Myoview intravenously. Gated SPECT images were acq uired in the supine position only. The patient was unable to tolerate prone imaging. Chest pain: None. Arrhythmias: None. ST segment changes: None. COMPARISON: Nuclear medicine myoc ardial perfusion stress and rest study 03/30/11. FINDINGS: Decreased radiopharmaceutical upt bryon within the proximal and mid inferior wall is unchanged on stress and rest imaging sugges ting diaphragmatic attenuation artifact. No reversible defects are found. The wall motion a ppears normal. The following functional stress data was obtained: End-diastolic volume: 141 mL End-systolic volume: 63 mL Ejection fraction: 55% The following functional rest data wa s obtained: End-diastolic volume: 123 mL End-systolic volume: 46 mL Ejection fraction: 62% The T.I.D. ratio is 1.16. 04/19/2013 1. Somewhat limited study as prone imaging was not done, due to patient prefere nce. The fixed defect within the inferior wall is probably due to diaphragmatic attenuation artifact, with infarct in this region thought less likely. No definitive reversible defects to suggest left ventricular wall ischemia. 2. Left ventricular stress ejection fraction is calculated at 55%. Ct Chest Pulmonary Embolism With Contrast 04/18/2013 HISTORY: 57-year-old male with COPD and shortness of breath with chest pain. TE CHNIQUE: CT pulmonary angiogram after the uneventful administration of 80 cc of Isovue 370. CT pulmonary angiogram with MIP images. Coronal imaging through the pulmonary arterial tree. None similar- prior study for comparison. 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 Lung wind ows demonstrate no infiltrate, effusion or discrete lesion. There is no evidence of severe p arenchymal destruction or high-grade bronchitis to correlate with the patient's history of C OPD. There is at most mild symmetric pulmonary hyperinflation. Dependent atelectasis. Bone windows are without fracture or aggressive lesion. Degenerative changes as commonly seen in a patient of this age. What is seen of the abdomen demonstrates no evident lesion. Clips in the gallbladder fossa post cholecystectomy and mild fatty infiltration of the liver. Soft tissue windows the chest demonstrate no adenopathy. Airway, esophagus and thyroid are unrema rkable. Configuration aortic arch is normal. CT angiogram demonstrates a high sensitivity e xamination with opacification of the pulmonary trunk to 280 Hounsfield units. No evidence of pulmonary embolic disease. 04/18/2013 1. No infiltrate or evidence of pulmonary embolic disease 2. Acute symptoms no t explained by this examination. Electronically signed by Elias Underwood MD on 4 9:42 PM Nm Cardiovascular Stress Treadmill 04/19/2013 This procedure was resulted in [facility] (the cardiology system). Please see the Med ia tab in Chart Review to see the result for this procedure. Discharge Vitals: Filed Vitals: 04/19/13 1900 04/20/13 0001 04/20/13 0335 04/20/13 0744 BP: 178/86 181/88 108/55 135/67 Pulse: 66 69 73 83 Temp: 97.9 F (36.6 C) 98 F (36.7 C) 97.5 F (36.4 C) 97.8 F (36.6 C) TempSrc: Oral Oral Axillary Oral Resp: 20 20 18 20 Height: Weight: SpO2: 94% 95% 96% 93% Discharge Exam: General: Well nourished. Psych: Alert and oriented x 3. Calm, cooperative. Cardiovascular: Regular rate and rhythm, no murmurs, no thrills. Normal PMI. Respiratory: Clear to auscultation, no wheezing or crackles, breathing non labored. Gastrointestinal: Soft, non-tender, non-distended, positive bowel sounds. No HSM. Musculoskeletal: No edema in bilateral lower extremities. No joint swelling. Skin: Warm and dry, no rashes. Neck: No JVD, Trachea midline. Neurological: Non focal. Motor grossly intact. LABS: Lab 04/20/13 0526 04/19/13 0603 04/18/13 1718 WBC 10.7 9.7 10.4 HGB 13.3 13.4 13.9 HCT 40.4 40.3 42.1 PLT 265 264 322 NEUTOPHILPCT 66.2 59.4 61.3 MONOPCT 7.8 8.9 7.8 Lab 04/20/13 0526 04/19/13 0603 04/18/13 1718 NA 138 138 137 K 3.6 3.7 3.7 CL 104 103 103 CO2 28 29 28 BUN 16 16 15 CREATININE 1.00 1.00 1.14 CALCIUM -- -- -- PROT 7.0 7.0 8.0 BILITOT 0.3 0.3 0.3 ALKPHOS -- -- -- ALT 11 13 22 AST 14 16 20 GLUCOSE -- -- -- Phosphorus: Lab 04/20/13 0526 PHOS 3.1 Lab 04/20/13 0526 04/19/13 0603 04/18/13 1718 MG 1.8 1.8 1.7 No results found for this basename: AMYLASE:3 in the last 168 hours No results found for this basename: PHART:3,PO2ART:3,MKH8PTS:3,B2WVOLUS:3,BEART:[address] 168 hours Lab 04/18/13 1718 APTT 26 INR 1.0 PTT -- No results found for this basename: TSH:3,T3FREE:3,FREET4:3 in the last 168 hours Lab 04/19/13 0603 04/18/13 2341 04/18/13 1718 CKTOTAL 80 83 107 TROPONINI <0.020 <0.020 -- TROPONINT -- -- -- CKMBINDEX 2.3 2.5 2.8 Assessment and Plan: Atypical chest pain prior to presentation with multiple risk factors for development of cor onary artery disease. The patient ruled out for acute myocardial injury with negative serial cardiac biomakers and negative EKGs. He underwent a nuclear medicine myocardial perfusion s tress test which showed essential negative results without evidence of reversible ischemia. The quality of the study was slightly compromised secondary to the patient's positional pre ferences during the test. The patient underwent a CT scan of the chest due to elevation of D -dimer and that study showed no evidence of PE. Diabetes mellitus with uncontrolled hyperglycemia without DKA. Continue the patient's pop men of insulin. Continue diabetic diet. At d/c . Hypertension. Stable Continue the patient's extensive list of antihypertensive home medi cations including clonidine, diltiazem, lisinopril, and nebivolol with persistently elevated systolic blood pressure. 4. COPD. Currently stable without evidence of exacerbation. Contin ue current p.r.n. nebulizers. Dyslipidemia Continue statin therapy. . Obstructive sleep apnea. Unfortunately the patient is noncompliant with his CPAP at the [facility] home. DISPOSITION The patient Be return to prison living situation today Disposition: penitentiary Follow up: F/ up PCP 1 week Medication List As of 04/20/2013 9:45 AM CONTINUE taking these medications ARIPiprazole 10 MG tablet Refills: 0 Commonly known as: ABILIFY budesonide-formoterol 80-4.5 MCG/ACT inhaler Refills: 0 Commonly known as: SYMBICORT calcium carbonate 500 MG chewable tablet Refills: 0 Commonly known as: TUMS cloNIDine 0.2 MG tablet QTY: 90 tablet Refills: 0 Commonly known as: CATAPRES Take 1 tablet by mouth 3 (three) times daily. clopidogrel 75 MG tablet Refills: 0 Commonly known as: PLAVIX diltiazem 240 MG 24 hr capsule Refills: 0 Commonly known as: CARDIZEM CD docusate sodium 100 MG capsule Refills: 0 Commonly known as: COLACE famotidine 20 MG tablet QTY: 30 tablet Refills: 0 Commonly known as: PEPCID Take 1 tablet by mouth 2 (two) times daily. fenofibrate 160 MG tablet Refills: 0 fluticasone-salmeterol 250-50 MCG/DOSE QTY: 2 each Refills: 1 Commonly known as: ADVAIR Inhale 1 puff into the lungs every 12 (twelve) hours. HYDROcodone-acetaminophen 5-325 MG per tablet Refills: 0 Commonly known as: NORCO insulin aspart 100 UNIT/ML injection Refills: 0 Commonly known as: NOVOLOG insulin glargine 100 UNIT/ML injection Refills: 0 Commonly known as: LANTUS lisinopril 40 MG tablet QTY: 30 tablet Refills: 0 Commonly known as: PRINIVIL,ZESTRIL Take 1 tablet by mouth daily. loperamide 2 MG capsule Refills: 0 Commonly known as: IMODIUM LORazepam 0.5 MG tablet Refills: 0 Commonly known as: ATIVAN meclizine 25 MG tablet QTY: 20 tablet Refills: 0 Commonly known as: ANTIVERT Take 1 tablet by mouth 3 (three) times daily as needed (vertigo). nebivolol 10 MG tablet Refills: 0 Commonly known as: BYSTOLIC nitroGLYCERIN 0.4 MG SL tablet Refills: 0 Commonly known as: NITROSTAT pantoprazole 40 MG tablet QTY: 30 tablet Refills: 0 Commonly known as: PROTONIX Take 1 tablet by mouth every morning before breakfast. paroxetine 40 MG tablet Refills: 0 Commonly known as: PAXIL polyethylene glycol packet Refills: 0 Commonly known as: GLYCOLAX pravastatin 20 MG tablet Refills: 0 Commonly known as: PRAVACHOL tiotropium 18 MCG inhalation capsule Refills: 0 Commonly known as: SPIRIVA TRADJENTA 5 MG tablet Refills: 0 Generic drug: linagliptin VENTOLIN HFA IN Refills: 0 Signed: BANG MAST MD 04/20/2013 9:45 AM Discharge took more than 35 minutes, to include final examination, discussion of admission, and preparation of prescriptions, instructions for ongoing care, follow up and dictation of summary. documented in this encounter Medications at Time [...] Progress Notes Conversion Transaction, Provider Unknown - 04/20/2013 1:25 AM PDTFormatting of this note m ight be different from the original. Nurse Progress Note by Taurus Mueller RN at 04/20/13124 Author: Taurus Mueller RN Service: (none) Author Type: Registered Nurse Filed: 04/20/13128 Date of Service: 04/20/13124 Status: Signed Nurse School: Taurus Mueller RN (Registered Nurse) Contacted [facility] regarding transport of patient back to their facility. Nurse stated ca nnot take patient until MondayApril 20 after 10:00 am. Transport will have to be either d ial-a-ride or taxi and facility will need discharge packet with doctor signature faxed to [phone] before receiving patient. Facility phone number is [phone]. Taurus Mueller RN Kristian Vidal MD - 04/19/2013 10:13 PM PDTFormatting of this note might be different from th chad original. Progress Notes by Kristian Meadows MD at 04/19/132212 Author: Kristian Meadows MD Service: (none) Author Type: Physician Filed: 04/19/13 2735 Date of Service: 04/19/132212 Status: Signed Nurse School: Kristian Meadows MD (Physician) Related Notes: Original Note by Kristian Meadows MD (Physician) filed at 04/19/132221 [facility] Service: Hospitalist Progress Note Pt: Norah Gr AGE/SEX: 57 y.o. male : 1955 ROOM: 1132/1132-1 TODAY'S DATE: 04/19/2013 Hospital Day: LOS: 1 day SUBJECTIVEThe patient underwent rule out MA protocol with negative cardiac biomarkers. He s ubsequently underwent nuclear medicine myocardial perfusion study which likely shows negativ e results. The study was slightly limited due to the patient's positional preferences during the test. Although his left ventricular ejection fraction was 55% without evidence of obvio us reversibility. The patient had no further chest pain. We made an attempt for the patient to be transported back to his prison where he resides. We contacted the [facility] facili ty however they were unable to take Mr. Gr this evening due to lack of intake staff. The patient can be discharged back to the facility after 1000 hours on April 20, 2013. The a.m. hospitalist will make these arrangements in the morning with the help of case management. Review of Systems: Review of Systems Constitutional: Negative for fever, chills, weight loss, malaise/fatigue and diaphoresis. HENT: Negative for hearing loss, ear pain, neck pain and tinnitus. Eyes: Negative for blurred vision and double vision. Respiratory: Negative for cough, hemoptysis, sputum production and shortness of breath. Cardiovascular: Negative for chest pain, palpitations, orthopnea, claudication and PND. Gastrointestinal: Negative for heartburn, nausea, vomiting, abdominal pain, diarrhea, const ipation, blood in stool and melena. Genitourinary: Negative for dysuria, frequency, hematuria and flank pain. Musculoskeletal: Negative for myalgias. Skin: Negative for itching and rash. Neurological: Negative for dizziness, tingling, seizures, loss of consciousness, weakness a nd headaches. Endo/Heme/Allergies: Negative for environmental allergies and polydipsia. Psychiatric/Behavioral: Negative for depression. Scheduled Medications ARIPiprazole 15 mg Oral Nightly budesonide-formoterol 2 puff Inhalation BID cloNIDine 0.2 mg Oral TID clopidogrel 75 mg Oral Daily diltiazem 240 mg Oral Daily docusate sodium 100 mg Oral Nightly fenofibrate 160 mg Oral Daily fluticasone-salmeterol 1 puff Inhalation Q12H heparin (porcine) 5,000 Units Subcutaneous Q8H insulin aspart 0-3 Units Subcutaneous Nightly insulin aspart 0-6 Units Subcutaneous TID AC insulin glargine 30 Units Subcutaneous Nightly linagliptin 5 mg Oral Daily lisinopril 40 mg Oral Daily nebivolol 20 mg Oral Daily pantoprazole 40 mg Oral QAM AC paroxetine 40 mg Oral QAM pravastatin 20 mg Oral Nightly sodium chloride 10 mL Intravenous Q8H tiotropium 18 mcg Inhalation Daily [DISCONTINUED] insulin glargine 30 Units Subcutaneous Nightly [DISCONTINUED] insulin glargine 5 Units Subcutaneous Nightly Continuous Infusions dextrose [DISCONTINUED] sodium chloride 110 mL/hr at 04/18/13 2046 PRN Medications acetaminophen, acetaminophen, dextrose, dextrose, dextrose, glucagon, glucagon, hydrALAZINE , HYDROcodone-acetaminophen, levalbuterol, LORazepam, meclizine, nitroGLYCERIN, ondansetron, ondansetron, polyethylene glycol, [COMPLETED] regadenoson Allergy: No Known Allergies OBJECTIVE Vitals: Patient Vitals for the past 24 hrs: BP Temp Temp src Pulse Resp SpO2 Weight 04/19/13 1900 178/86 mmHg 97.9 F (36.6 C) Oral 66 20 94 % - 04/19/13 1614 146/97 mmHg - - - - - - 04/19/13 1537 173/86 mmHg 98.1 F (36.7 C) Oral 63 20 96 % - 04/19/13 1105 158/78 mmHg 98.2 F (36.8 C) Oral 67 20 - - 04/19/13 0957 154/73 mmHg - - 68 20 - - 04/19/13 0738 181/82 mmHg 98.1 F (36.7 C) Oral 58 16 96 % - 04/19/13 0430 - - - - - - 109.68 kg (241 lb 12.8 oz) 04/19/13 0314 187/99 mmHg 98.1 F (36.7 C) Oral 60 18 95 % - 04/19/13 0003 166/106 mmHg 98.3 F (36.8 C) Oral 63 16 96 % - I&O Detailed Table: Intake/Output Summary (Last 24 hours) at 04/19/13 2213 Last data filed at 04/19/13 0500 Gross per 24 hour Intake 200 ml Output 350 ml Net -150 ml Patient Vitals for the past 96 hrs: Weight 04/19/13 0430 109.68 kg (241 lb 12.8 oz) 04/18/13 2110 109.544 kg (241 lb 8 oz) Hemodynamics Last 24hrs: Examination: Physical Exam Constitutional: He is oriented to person, place, and time. He appears well-developed and we ll-nourished. No distress. HENT: Head: Atraumatic. Nose: Nose normal. Mouth/Throat: Oropharynx is clear and moist. No oropharyngeal exudate. Eyes: EOM are normal. Pupils are equal, round, and reactive to light. No scleral icterus. Neck: Normal range of motion. Neck supple. No JVD present. Cardiovascular: Normal rate, regular rhythm and intact distal pulses. Exam reveals no gall op and no friction rub. Pulmonary/Chest: Effort normal and breath sounds normal. No respiratory distress. He has no wheezes. He has no rales. He exhibits no tenderness. Abdominal: Soft. Bowel sounds are normal. He exhibits no distension and no mass. There is n o tenderness. Musculoskeletal: Normal range of motion. He exhibits no edema and no tenderness. Neurological: He is alert and oriented to person, place, and time. Skin: Skin is warm and dry. He is not diaphoretic. No erythema. No pallor. Psychiatric: He has a normal mood and affect. LABS: Lab 04/19/13 0603 04/18/13 1718 WBC 9.7 10.4 HGB 13.4 13.9 HCT 40.3 42.1 PLT 264 322 NEUTOPHILPCT 59.4 61.3 MONOPCT 8.9 7.8 Lab 04/19/13 0603 04/18/13 1718 NA 138 137 K 3.7 3.7 CL 103 103 CO2 29 28 BUN 16 15 CREATININE 1.00 1.14 CALCIUM -- -- PROT 7.0 8.0 BILITOT 0.3 0.3 ALKPHOS -- -- ALT 13 22 AST 16 20 GLUCOSE -- -- Phosphorus: No results found for this basename: PHOS in the last 168 hours Lab 04/19/13 0603 04/18/13 1718 MG 1.8 1.7 No results found for this basename: AMYLASE:3 in the last 168 hours Lab 04/18/13 1718 LIPASE 149 No results found for this basename: PHART:3,PO2ART:3,HEE6BAN:3,O4LSLDFR:3,BEART:[address] 168 hours Lab 04/18/13 1718 APTT 26 INR 1.0 PTT -- No results found for this basename: TSH:3,T3FREE:3,FREET4:3 in the last 168 hours Lab 04/19/13 0603 04/18/13 2341 04/18/13 1718 CKTOTAL 80 83 107 TROPONINI <0.020 <0.020 -- TROPONINT -- -- -- CKMBINDEX 2.3 2.5 2.8 Diagnostic: Xr Chest Pa And Lateral 04/18/2013 History: 57 year-old male with pain. Technique: Frontal and lateral radiographi c examination of the chest. 13 March 2013, prior study for comparison. Findings: Cardiome diastinum is normal. Lungs are symmetrically inflated without pneumothorax, infiltrate, or effusion. Asymmetric disease the left lung base is less, appears to be an asymmetric focus o f atelectasis or scarring. 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 Patient's symptoms not explained by this technique. Nm Myocardial Perfusion Spect (stress And Rest) 04/19/2013 NORAH GR NM MYOCARDIAL PERFUSION SPECT - STRESS AND REST 04/19/2013 2:28 PM HISTORY: 57 years. Male. Chest pain. TECHNIQUE: A same day, dual-isotope protocol was us ed. For the resting portion of the study the patient was injected intravenously with 9.5 mC i of technetium 99 labeled Myoview. Gated SPECT imaging was performed in the supine positio n. The patient was then pharmacologically stressed with 0.4 mg of regadenoson intravenously according to protocol. Resting heart rate vasiliy from 51 beats/min to 82 beats/min which was 50% of the maximum age-predicted heart rate. At the point of maximum stress, the patient r eceived 45 mCi of technetium 99m labeled Myoview intravenously. Gated SPECT images were acq uired in the supine position only. The patient was unable to tolerate prone imaging. Chest pain: None. Arrhythmias: None. ST segment changes: None. COMPARISON: Nuclear medicine myoc ardial perfusion stress and rest study 03/30/11. FINDINGS: Decreased radiopharmaceutical upt bryon within the proximal and mid inferior wall is unchanged on stress and rest imaging sugges ting diaphragmatic attenuation artifact. No reversible defects are found. The wall motion a ppears normal. The following functional stress data was obtained: End-diastolic volume: 141 mL End-systolic volume: 63 mL Ejection fraction: 55% The following functional rest data wa s obtained: End-diastolic volume: 123 mL End-systolic volume: 46 mL Ejection fraction: 62% The T.I.D. ratio is 1.16. 04/19/2013 1. Somewhat limited study as prone imaging was not done, due to patient prefere nce. The fixed defect within the inferior wall is probably due to diaphragmatic attenuation artifact, with infarct in this region thought less likely. No definitive reversible defects to suggest left ventricular wall ischemia. 2. Left ventricular stress ejection fraction is calculated at 55%. Ct Chest Pulmonary Embolism With Contrast 04/18/2013 HISTORY: 57-year-old male with COPD and shortness of breath with chest pain. TE CHNIQUE: CT pulmonary angiogram after the uneventful administration of 80 cc of Isovue 370. CT pulmonary angiogram with MIP images. Coronal imaging through the pulmonary arterial tree. None similar- prior study for comparison. 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 Lung wind ows demonstrate no infiltrate, effusion or discrete lesion. There is no evidence of severe p arenchymal destruction or high-grade bronchitis to correlate with the patient's history of C OPD. There is at most mild symmetric pulmonary hyperinflation. Dependent atelectasis. Bone windows are without fracture or aggressive lesion. Degenerative changes as commonly seen in a patient of this age. What is seen of the abdomen demonstrates no evident lesion. Clips in the gallbladder fossa post cholecystectomy and mild fatty infiltration of the liver. Soft tissue windows the chest demonstrate no adenopathy. Airway, esophagus and thyroid are unrema rkable. Configuration aortic arch is normal. CT angiogram demonstrates a high sensitivity e xamination with opacification of the pulmonary trunk to 280 Hounsfield units. No evidence of pulmonary embolic disease. 04/18/2013 1. No infiltrate or evidence of pulmonary embolic disease 2. Acute symptoms no t explained by this examination. Electronically signed by Elias Underwood MD on 4 9:42 PM Nm Cardiovascular Stress Treadmill 04/19/2013 This procedure was resulted in [facility] (the cardiology system). Please see the Med ia tab in Chart Review to see the result for this procedure. Ct Appendicitis Protocol 03/22/[address] PELVIS APPY WO CONTRAST 03/22/2013 8:36 PM HISTORY: 57 years. Male. Abdominal pain. Assess for appendicitis. TECHNIQUE: 2-mm axial images were acquired through the pelvis. Rectal Contrast: Gastrograffin Oral Contrast: None IV contrast: None C OMPARISON: 01/05/2013 CT abdomen pelvis. FINDINGS: The visualized portions of the liver, sp carlitos, pancreas, adrenal glands and kidneys are normal with the exception of a simple exophyt ic cyst arising from the lateral lower margin of the right kidney measuring 3 cm in diameter . The patient is status post cholecystectomy. The aorta and vena cava are normal in calibe r throughout their visualized course including the iliac and femoral vessels. No free fluid or free air is seen. No adenopathy is seen. The visualized small bowel and the ileocecal valve are normal. No air-fluid levels are seen to suggest obstruction. The appendix is jaime elvin identified and measures 8 mm in diameter however this is unchanged from the previous ex am. There is no wall thickening seen in the appendix and there is air and contrast material seen in the appendiceal lumen. No inflammation is seen surrounding the appendix to suggest appendicitis. The ascending colon, transverse colon, descending colon, sigmoid colon and r ectum demonstrate normal wall thickness. No diverticulosis is noted. The bladder is only p artially fluid filled but is otherwise normal. The prostate is normal in size. The seminal vesicles are normal. The visualized portion of the penis is normal. The muscles are symme tric. No focal atrophy or soft tissue mass is seen. No hernias are identified. The osseou s structures do not demonstrate lytic or blastic lesions. The SI joints are normal. The hi p joints show mild degenerative change of the right and moderate degenerative change of the left. 03/22/2013 1. No definite cause for abdominal pain demonstrated. 2. Incidental notation m alondra of simple 3 cm right renal cyst unchanged from December 2012. 3. Appendix is 8 mm in di ameter but otherwise appears normal. This is unchanged from December 2012. No definite angie dence of appendicitis. 4. The patient is status post cholecystectomy. 5. Degenerative glass ges seen in the hip joints. P M Past Medical History Diagnosis Date Diabetes mellitus [...] - CHOLECYSTECTOMY; Surgeon: Jevon Vargas DO; Location: [facility] MAIN OR; Service: General; Laterality: N/A; Abdominal surgery Cholecystectomy Skin cancer excision 10/10/2012 Procedure: EXCISION - SKIN CANCER; Surgeon: Sy Fierro MD; Location: [facility] MAIN OR ; Service: Plastics; Laterality: Left; upper arm and upper back w/frozen section Esophagogastroduodenoscopy 03/03/2013 Procedure: ESOPHAGOGASTRODUODENOSCOPY; Surgeon: Howie Gibson MD; Location: [facility] ENDOSCOPY; S ervice: Gastroenterology; Laterality: N/A; Colonoscopy 03/04/2013 Procedure: COLONOSCOPY; Surgeon: Howie Gibson MD; Location: [facility] ENDOSCOPY; Service: Gastroe nterology; Laterality: N/A; PROBLEM LIST Principal Problem: *Chest pain Active Problems: Diabetes mellitus type II HTN (hypertension) COPD (chronic obstructive pulmonary disease) Hyperlipidemia Chronic back pain Elevated d-dimer ASSESSMENT & PLAN A 57-year-old male who presents with the followin. Atypical chest pain prior to presentation with multiple risk factors for development of coronary artery disease. The patient ruled out for acute myocardial injury with negative ser ial cardiac biomakers and negative EKGs. He underwent a nuclear medicine myocardial perfusio n stress test today which showed essential negative results without evidence of reversible i schemia. The quality of the study was slightly compromised secondary to the patient's positi onal preferences during the test. The patient underwent a CT scan of the chest due to elevat ion of D-dimer and that study showed no evidence of PE. 2. Diabetes mellitus with uncontrolled hyperglycemia without DKA. Continue the patient's re gimen of insulin. Continue diabetic diet. Continue judicious intravenous fluid hydration. 3. Hypertension. Continue the patient's extensive list of antihypertensive home medications including clonidine, diltiazem, lisinopril, and nebivolol with persistently elevated systol ic blood pressure. The patient might benefit from increasing his Cardizem from 240 300 mg p. o. daily. 4. COPD. Currently stable without evidence of exacerbation. Continue current p.r.n. nebuliz ers. 5. Dyslipidemia Continue statin therapy. 6. Obstructive sleep apnea. Unfortunately the patient [facility]. He is likely not to benefit from CPAP therapy unless he accepts treatment volunt arily. 7. DVT prophylaxis. SCDs and subcutaneous heparin 5000 units q.8h. (will change to q.12h.) DISPOSITION The [facility] may return to prison living situation tomorrow April 20, 2013, once our nicholas e management will verify that the facility can accept Mr. Gr. Case management consult has been placed. Kristian Meadows MD 04/19/2013 10:13 PM onversion Chin ledesma, Provider Unknown - 04/19/2013 2:47 PM PDT Progress Notes by QUINN Pepper at 04/19/13 4827 Author: QUINN Pepper Service: (none) Author Type: Waiver Analyst Filed: 04/19/13 3953 Date of Service: 04/19/13 1447 Status: Signed Nurse School: QUINN Pepper (Waiver Analyst) 04/19/13 0261 Discharge Planning Evaluation Admitting Diagnosis chest pain Readmission No Living Arrangements Alone Support Systems Family members;Children Type of Residence Assisted living ([facility]) Independent with ADL's Yes Independent with Mobility Yes Home Care Services No Caregiver after Discharge No Mental Status Oriented Prior functional status Independent Power of Manager Program Management No Anticipated Discharge Plan Post Acute Care Needs None at this time Plan communicated to patient/family Yes Resources Financial concerns No Transportation issues No (Taxi / Medicaid) Patient/Family concerns No Prescription Plan Yes Name of Pharmacy Through [facility] Previous home health equipment No Vascular access device No Ostomy/Drains/Appliances No Met with: pt and discussed discharge planning, Pt is a 57 y.o., male who states that he lives at [facility], and he plans to return there via Taxi paid by [employer]. Patient's PCP is: TAINA WASHBURN Patient's insurance:Medicare/ Medicaid Coverage concerns: None Medication coverage/concerns: None Community resources utilized / needed: None Assistance in transportation: Pt would like to transport via Taxi and have Medicaid pay for it. Identification of any specific education / training: None Barriers to Discharge / Alternative housing needed: None Anticipated DCP: pt will transport via Medicaid Taxi back to [facility] ANGELA LUBIN onver ivana Transaction, Provider Unknown - 04/19/2013 4:44 AM PDT Progress Notes by Pepe Xie RPH at 04/19/13443 Author: Pepe Xie RPH Service: (none) Author Type: Pharmacist Filed: 04/19/13443 Date of Service: 04/19/13443 Status: Signed Nurse School: Pepe Xie RPH (Pharmacist) pom requested rdc 443 onver ivana Transaction, Provider Unknown - 04/18/2013 10:03 PM PDT Progress Notes by Pepe Xie RPH at 04/18/132202 Author: Pepe Xie RPH Service: (none) Author Type: Pharmacist Filed: 04/18/132202 Date of Service: 04/18/132202 Status: Signed Nurse School: Pepe Xie RPH (Pharmacist) Note ccl 88.9ml/min meds reviewed pharmacy will follow rdc 2202 docume nted in this encounter H&P Notes Elizabeth Ochoa - 04/18/2013 7:34 PM PDTFormatting of this note might be different from th e original. H&P by Elizabeth Ochoa MD at 04/18/131933 Author: Elizabeth Ochoa MD Service: (none) Author Type: Physician Filed: 04/20/132205 Date of Service: 04/18/131933 Status: Signed Nurse School: Elizabeth Ochoa MD (Physician) [facility] Service: Hospitalist Admission History & Physical Date of Admission: 04/18/2013 Requesting Physician: Jonny Gr, Emergency Department Reason for Admission: Chest pain , r/o acs History Obtained From: patient, chart review, Quality of history: good CHIEF COMPLAINT: Chief Complaint Chief Complaint Patient presents with Chest Pain x 3 hrs WRAPPER OFF HISTORY OF PRESENT ILLNESS The patient is a 57 y.o. male with significant past medical history of diabetes mellitus, hypertension, hyperlipidemia, obstructive sleep apnea noncompliant with CPAP, and paroxysmal atrial fibrillation. In February 2013, the patient had a GI bleed. The patient currently on Plavix for atrial fibrillation, not on Coumadin. Developmentally delayed and lives in a renee up home. The patient presented to the ED with chief complaint of chest pain that started around 1615 hours, while at rest, eating dinner, and substernal in location. Described as "a jabbing pa in", 3/10 in intensity, localized without radiation to the left arm, jaw, intrascapular area . It was episodic. Each episode lasted for a couple of minutes and resolved spontaneously. I t is associated with mild shortness of breath and intermittent sweating. Some nausea, withou t vomiting, lightheadedness, syncope. He denies pleuritic chest pain. He had similar episode s in 2011. He underwent a stress test. It was normal. He denied any recent travel. No sympto ms of DVT. No trauma to the chest wall. He denies recent use of nonsteroidal antiinflammator y medications. He denies any hematemesis, hematochezia, or melena. No epigastric pain. In e ED got aspirin and nitroglycerin and that helped resolve the pain. At this time, chest allen n is 0. He denies any fever, chills, or cough. Workup in the ED showed normal EKG, sinus bradycardia, without acute ST elevation or depres ivana to suggest injury or ischemia. First set of cardiac enzymes were negative. LFTs were no rmal. CBC with differential normal. CMP showed elevated blood glucose of 212. No DKA. The spitalist service consulted to admit to rule out ACS. REVIEW OF SYSTEMS Review of Systems CONSTITUTIONAL: No recent change in weight or appetite. No fever. No chills. HEENT: He denies any headache, acute vision changes, dysphagia, aspiration, and thrush. NECK: No neck pain or neck stiffness. PULMONARY: He has mild intermittent wheezing from COPD, but not on home oxygen. He does not use his CPAP. He denies any acute worsening cough, shortness of breath, pleuritic chest allen n, and hemoptysis. CARDIOVASCULAR: No prior history of MA, congestive heart failure, or syncope. History of pa roxysmal atrial fibrillation present. GASTROINTESTINAL: He denies any constipation, diarrhea, GI hemorrhage, abdominal distention , or pain. MUSCULOSKELETAL: Bilateral lower extremities with no pain, swelling, or redness. NEUROLOGIC: No history of TIA, strokes, or seizures. No new focal neurological symptoms. ENDOCRINE: Diabetes present, on insulin. INTEGUMENTARY: No rash or decubitus ulcers. PSYCHIATRIC: He denies anxiety or depression. History of panic attacks present. Past Medical History Diagnosis Date Diabetes mellitus [...] - CHOLECYSTECTOMY; Surgeon: Jevon Vargas DO; Location: [facility] MAIN OR; Service: General; Laterality: N/A; Abdominal surgery Cholecystectomy Skin cancer excision 10/10/2012 Procedure: EXCISION - SKIN CANCER; Surgeon: Sy Fierro MD; Location: [facility] MAIN OR ; Service: Plastics; Laterality: Left; upper arm and upper back w/frozen section Esophagogastroduodenoscopy 03/03/2013 Procedure: ESOPHAGOGASTRODUODENOSCOPY; Surgeon: Howie Gibson MD; Location: [facility] ENDOSCOPY; S ervice: Gastroenterology; Laterality: N/A; Colonoscopy 03/04/2013 Procedure: COLONOSCOPY; Surgeon: Howie Gibson MD; Location: [facility] ENDOSCOPY; Service: Gastroe nterology; Laterality: N/A; No Known Allergies Prior to Admission medications Medication Sig Start Date End Date Taking? Authorizing Provider Albuterol Sulfate (VENTOLIN HFA IN) Inhale 2 puffs into the lungs as needed. Historical Provider ARIPiprazole (ABILIFY) 10 MG tablet Take 15 mg by mouth nightly. Historical Provider budesonide-formoterol (SYMBICORT) 80-4.5 MCG/ACT inhaler Inhale 2 puffs into the lungs 2 (t wo) times daily. Historical Provider calcium carbonate (TUMS) 500 MG chewable tablet Take 500-1,000 mg by mouth daily as needed. For GERD Historical Provider cloNIDine (CATAPRES) 0.2 MG tablet Take 1 tablet by mouth 3 (three) times daily. 03/05/13 Scott Martínez MD clopidogrel (PLAVIX) 75 MG tablet Take 75 mg by mouth daily. Historical Provider diltiazem (CARDIZEM CD) 240 MG 24 hr capsule Take 240 mg by mouth daily. Historical Prov ider docusate sodium (COLACE) 100 MG capsule Take 100 mg by mouth nightly. Historical Provide r famotidine (PEPCID) 20 MG tablet Take 1 [...] needed. Indica tions: Feeling Anxious Historical Provider meclizine (ANTIVERT) 25 MG tablet Take 1 tablet by mouth 3 (three) times daily as needed (v ertigo). 04/10/13 04/20/13 Gurvinder Cruz MD nebivolol (BYSTOLIC) 10 MG tablet Take 20 [...] 17 g by mouth daily. Historical Provider pravastatin (PRAVACHOL) 20 MG tablet Take 20 mg by mouth nightly. Historical Provider tiotropium (SPIRIVA) 18 MCG inhalation capsule Inhale 18 mcg into the lungs daily. Histo rical Provider Family History Problem Relation Age of Onset [...] Narrative Lives in prison, IADL, full code History Smoking status Never Smoker Smokeless tobacco Never Used History Alcohol Use Yes Comment: once a weak. 2-3 beers , last drank this am. History Drug Use No PHYSICAL EXAM Vital Signs: BP 154/74 | Pulse 64 | Temp 98.7 F (37.1 C) | Resp 19 | SpO2 99% Physical Exam Vitals reviewed. Constitutional: He is oriented to person, place, and time. He appears well-developed and we ll-nourished. No distress. HENT: Head: Normocephalic and atraumatic. Mouth/Throat: No oropharyngeal exudate. Eyes: Conjunctivae normal and EOM are normal. Pupils are equal, round, and reactive to ligh t. No scleral icterus. Neck: Normal range of motion. Neck supple. No JVD present. No thyromegaly present. Cardiovascular: Normal rate, regular rhythm, normal heart sounds and intact distal pulses. Exam reveals no gallop and no friction rub. No murmur heard. Pulmonary/Chest: Effort normal. No respiratory distress. He has wheezes. He has no rales. H e exhibits no tenderness. End expiratory wheeze Abdominal: Soft. Bowel sounds are normal. He exhibits no distension. There is tenderness. T here is no rebound and no guarding. Mild TTP in the epigastrium Musculoskeletal: Normal range of motion. He exhibits no edema and no tenderness. Neurological: He is alert and oriented to person, place, and time. He has normal reflexes. No cranial nerve deficit. Skin: Skin is warm and dry. Rash noted. He is not diaphoretic. Old scabs scattered Psychiatric: He has a normal mood and affect. His behavior is normal. Thought content janine l. Developmental delay present DATA Results for orders placed during the hospital encounter of 04/18/13 (from the past 24 hour( s)) [facility] CARD PANEL W/O TRP (ED ONLY) Collection Time 04/18/13 5:18 PM Component Value Range WBC 10.4 3.8 - 11.0 K/uL RBC 5.11 4.20 - 5.70 M/uL HGB 13.9 13.2 - 17.0 g/dL HCT 42.1 39.0 - 50.0 % MCV 82.4 80.0 - 100.0 fl MCH 27.2 27.0 - 34.0 pg MCHC 33.0 32.0 - 35.5 g/dL RDW SD 41.1 37 - 53 fl PLT 322 150 - 400 K/uL MPV 7.0 DIFF TYPE AUTOMATED NEUTROPHILS 61.3 LYMPHOCYTES 26.5 MONOCYTES 7.8 EOSINOPHILS 3.5 BASOPHILS 0.9 NEUTROPHILS ABS 6.4 1.9 - 7.4 K/uL LYMPHOCYTES ABS 2.7 1.0 - 3.9 K/uL MONOCYTES ABS 0.8 0 - 0.8 K/uL EOSINOPHILS ABS 0.4 0 - 0.5 K/uL BASOPHILS ABS 0.1 0 - 0.1 K/uL SODIUM 137 135 - 143 mmol/L POTASSIUM 3.7 3.5 - 4.9 mmol/L CHLORIDE 103 99 - 109 mmol/L CO2 28 23 - 32 mmol/L ANION GAP AGAP 11 5 - 20 mmol/L GLUCOSE 212 (*) 65 - 99 mg/dL BUN 15 8 - 25 mg/dL CREATININE 1.14 0.70 - 1.30 mg/dL BUN/CREAT 13 CALCIUM 8.9 8.5 - 10.2 mg/dL TOTAL PROTEIN 8.0 6.3 - 8.2 g/dL Albumin 3.3 (*) 3.6 - 5.0 g/dL GLOBULIN 4.7 1.3 - 4.9 g/dL A/G 0.7 (*) 1.0 - 2.4 TBIL 0.3 0.1 - 1.5 mg/dL ALK PHOS 115 35 - 115 U/L AST 20 10 - 45 U/L ALT 22 10 - 65 U/L EGFR >60 >60 mL/min/1.73m2 CPK 107 55 - 400 U/L INR 1.0 APTT 26 23 - 32 seconds MMB 3.0 0.5 - 3.6 ng/mL CK-MB Index 2.8 EKG 12 LEAD UNIT PERFORMED Collection Time 04/18/13 5:18 PM Component Value Range Ventricular Rate 57 Atrial Rate 57 P-R Interval 184 QRS Duration 90 Q-T Interval 472 QTC Calculation (Bezet) 459 Calculated P [place] 42 Calculated R [place] 40 Calculated T [place] 54 Diagnosis Value: Sinus bradycardia Otherwise normal ECG When compared with ECG of 09-APR-2013 20:13, No significant change was found This ECG contains Unconfirmed Interpretation Statements. See ED Record for Physician In terpretation. Confirmed by MUSE READ ONLY, -COMPUTER ([id number]), manager editorial LIZETTE WATERMAN (2) on 04/18/2013 6:31 :19 PM POC CARDIAC TROPONIN Collection Time 04/18/13 5:19 PM Component Value Range POC CARDIAC TROPONIN 0.00 0.00 - 0.10 ng/mL XR Chest PA and Lateral [[id number]] Status: Final result Study Result Findings: Cardiomediastinum is normal. Lungs are symmetrically inflated without pneumothorax, infiltrate, or effusion. Asymmetric disease the left lung base is less, appears to be an asymmetric focus of atelectasis or scar ring. 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 IMPRESSION: No evidence of acute disease or active process. Patient's symptoms not explained by this te michaelnique. Old record : NM Myocardial Perfusion SPECT (Stress and Rest) IMPRESSION: 1. Normal chamber size, wall motion and ejection fraction 2. No convincing evidence of reversibility 3. Hypertension which could be independent risk factor for cardiac events and other disease LEM LIST Principal Problem: *Chest pain Active Problems: Diabetes mellitus type II HTN (hypertension) COPD (chronic obstructive pulmonary disease) Hyperlipidemia Chronic back pain Elevated d-dimer ASSESSMENT & PLAN 1. Chest pain while at rest, atypical, less likely cardiac however has multiple risk factor s for coronary syndrome including age, male sex, diabetes, hypertension, and hyperlipidemia. Will admit for observation. Serial cardiac enzymes. If he rules out he will undergo chemica l nuclear stress test in a.m. for risk stratification. The patient is on Sitagliptin therefo re ordered serum lipase to rule out pancreatis as he also has mild tenderness in the epigast rium. The patient is relatively not very active therefore ordered D-dimer which if elevated will order CT scan of the chest to rule out PE. 2. Diabetes mellitus, uncontrolled hyperglycemia without DKA. His medication reconciliation is not completed yet. Will order Lantus 30 units subcutaneous nightly with low-dose sliding scale insulin and then adjust as needed. 3. Hypertension. Continue home medications. Hydralazine p.r.n. ordered for systolic blood p ressures greater than 160. 4. COPD, stable, with mild end-expiratory wheeze. Ordered Xopenex p.r.n. and continue home bronchodilators. No indication for steroids at this time. Chest x-ray does not show any acut e bronchitis or pneumonia. 5. Hyperlipidemia. Continue statin and check lipid panel in a.m. Adjust the dose as needed. 6. Obstructive sleep apnea. The patient reports noncompliance with CPAP. He was counseled a nd educated to use it, to prevent worsening pulmonary hypertension. Addendum: 11:51pm CT chest pulmonary embolism with contrast FINDINGS: The master chef is unremarkable. Lung windows demonstrate no infiltrate, effusion or discrete lesion. There is no evidence o f severe parenchymal destruction or high-grade bronchitis to correlate with the patient's hi story of COPD. There is at most mild symmetric pulmonary hyperinflation. Dependent atelectas is. Bone windows are without fracture or aggressive lesion. Degenerative changes as commonly se en in a patient of this age. What is seen of the abdomen demonstrates no evident lesion. Clips in the gallbladder fossa post cholecystectomy and mild fatty infiltration of the liver. Soft tissue windows the chest demonstrate no adenopathy. Airway, esophagus and thyroid are unremarkable. Configuration aortic arch is normal. CT angiogram demonstrates a high sensitivity examination with opacification of the pulmonar y trunk to 280 Hounsfield units. No evidence of pulmonary embolic disease. IMPRESSION: 1. No infiltrate or evidence of pulmonary embolic disease 2. Acute symptoms not explained by this examination. The patient had elevated D-dimer therefore ordered CT scan of the chest and that ruled out pulmonary embolism, pneumonia, effusion, dissection. Disposition: observation Code Status: Full code Primary Care Physician: TAINA OCHOA MD 04/18/2013 documented in this encou nter Procedure Notes Deejay Tia NP - 04/19/2013 1:23 PM PDT Procedures by CITLALY Garcia at 04/19/13 1323 Author: CITLALY Garcia Service: (none) Author Type: Advanced Registered Nurse Pr actitioner Filed: 04/19/13 1324 Date of Service: 04/19/131322 Status: Signed Nurse School: CITLALY Garcia (Advanced Registered Nurse Practitioner) Pre-procedure Diagnoses: 1. Chest pain [786.50] Post-procedure Diagnoses: 1. Chest pain [786.50] Procedures: 1. NM MYOCARDIAL PERFUSION SPECT - STRESS AND REST [LNT558 (Custom)] [facility] Service: Diagnostic Imaging/Nuclear Medicine Cardiac Stress Test Note Type of Stress Test performed (protocol): Pharmacologic stress test Virgil protocol time (if applicable): N/A Rhythm changes: None Ectopy: None Symptoms experienced during exam: None ST/T wave changes: None Medications administered: Lexiscan 0.4 mg CITLALY GARCIA 04/19/2013 1:23 PM documented in th is encounter ED Notes Conversion Transaction, Provider Unknown - 04/18/2013 5:47 PM PDTFormatting of this note m ight be different from the original. ED Notes by Carlos Morfin RN at 04/18/131746 Author: Carlos Morfin RN Service: (none) Author Type: Registered Nurse Filed: 04/18/131747 Date of Service: 04/18/131746 Status: Signed Nurse School: Carlos Morfin RN (Registered Nurse) Pt had 325mg aspirin from EMS Carlos Morfin RN 04/18/131747 onny Gr PA-C - 04/18/2013 5:38 PM PDTFormatting of this note might be different from the orig inal. ED Provider Notes by oJnny Gr PA-C at 04/18/131737 Author: Jonny Gr PA-C Service: (none) Author Type: Physician Riveting Machine Operator Automatic - Certified Filed: 04/18/13 2230 Date of Service: 04/18/131737 Status: Signed Nurse School: Jonny Gr PA-C (Physician Riveting Machine Operator Automatic - Certified) Related Notes: Cosigned by Yaakov Bridges DO (Physician) filed at 04/21/13 8798 Procedures [facility] Department of Emergency Medicine History of Present Illness Patient Identification Norah Gr is a 57 y.o. male. Patient information was obtained from patient. History/Exam limitations: none. Patient presented to the Emergency Department by: [facility] 1723 Chief Complaint Chief Complaint Patient presents with Chest Pain The patient complains of chest pain. Onset of symptoms was 3 hours ago, with a unresolved c ourse since that time. The symptoms are described to be of mild in severity. The patient d escribes the quality and location of the symptoms as the following: dull aching mid-sternal chest pain that comes and goes and lasts for 5 min 3/10. Care prior to arrival consisted of rest, with out relief. Past Medical History Diagnosis Date Diabetes [...] - CHOLECYSTECTOMY; Surgeon: Jevon Vargas DO; Location: [facility] MAIN OR; Service: General; Laterality: N/A; Abdominal surgery Cholecystectomy Skin cancer excision 10/10/2012 Procedure: EXCISION - SKIN CANCER; Surgeon: Sy Fierro MD; Location: [facility] MAIN OR ; Service: Plastics; Laterality: Left; upper arm and upper back w/frozen section Esophagogastroduodenoscopy 03/03/2013 Procedure: ESOPHAGOGASTRODUODENOSCOPY; Surgeon: Howie Gibson MD; Location: [facility] ENDOSCOPY; S ervice: Gastroenterology; Laterality: N/A; Colonoscopy 03/04/2013 Procedure: COLONOSCOPY; Surgeon: Howie Gibson MD; Location: [facility] ENDOSCOPY; Service: Gastroe nterology; Laterality: N/A; Prior to Admission medications Medication Sig Start Date End Date Taking? Authorizing Provider Albuterol Sulfate (VENTOLIN HFA IN) Inhale 2 puffs into the lungs as needed. Historical Provider ARIPiprazole (ABILIFY) 10 MG tablet Take 15 mg by mouth nightly. Historical Provider budesonide-formoterol (SYMBICORT) 80-4.5 MCG/ACT inhaler Inhale 2 puffs into the lungs 2 (t wo) times daily. Historical Provider calcium carbonate (TUMS) 500 MG chewable tablet Take 500-1,000 mg by mouth daily as needed. For GERD Historical Provider cloNIDine (CATAPRES) 0.2 MG tablet Take 1 tablet by mouth 3 (three) times daily. 03/05/13 Scott Martínez MD clopidogrel (PLAVIX) 75 MG tablet Take 75 mg by mouth daily. Historical Provider diltiazem (CARDIZEM CD) 240 MG 24 hr capsule Take 240 mg by mouth daily. Historical Prov ider docusate sodium (COLACE) 100 MG capsule Take 100 mg by mouth nightly. Historical Provide r famotidine (PEPCID) 20 MG tablet Take 1 [...] needed. Indica tions: Feeling Anxious Historical Provider meclizine (ANTIVERT) 25 MG tablet Take 1 tablet by mouth 3 (three) times daily as needed (v ertigo). 04/10/13 04/20/13 Gurvinder Cruz MD nebivolol (BYSTOLIC) 10 MG tablet Take 20 [...] 17 g by mouth daily. Historical Provider pravastatin (PRAVACHOL) 20 MG tablet [...] Negative for: mouth sores Cardiovascular/Respiratory: Negative for: shortness of breath, cough Positive for: chest pain Gastrointestinal: Negative for: abdominal pain, vomiting, diarrhea, black or bloody stools Genitourinary: Negative for: dysuria, hematuria, urinary problems Musculoskeletal: Negative for: myalgias and arthralgias Skin: Negative for: laceration or lesion Neuro and psych: Negative for: fainting, head injury, seizure, trouble walking Endocrine/Heme/Lymph: Negative for: swollen lymph nodes, easy bruising Physical Exam BP 181/82 | Pulse 52 | Temp 98.5 F (36.9 C) (Oral) | Resp 18 | Ht 1.803 m (5' 11") | Wt 109.544 kg (241 lb 8 oz) | BMI 33.70 kg/m2 | SpO2 96% Pulse Oximetry interpretation: Normal General: Alert, in no apparent distress Eyes: Normal inspection, pupils equal and round, non-icteric Neck: Normal inspection Supple No lymphadenopathy No meningismus Cardiovascular: Rate and rhythm normal No murmurs, heaves lifts or thrills, no carotid bruits appreciated on auscultation, 2+ pu lses bilaterally radial and pedal. Respiratory: Breath sounds normal bilaterally Abdomen: Soft, non-tender, non-distended No guarding or rebound Back: Normal inspection Skin: Color normal Warm and dry No rash Neuro: No motor deficit No sensory deficit Normal gait Medical Decision Making and Emergency Department Course ED Department Course 1730 Examined and spoke to the pt who relates a 3 hour history of chest pain that comes and goes and only lasts for 5 min and is mid-sternal and dull and aching. I have discussed a di fferential of acute MA, NSTEMI, and pleural effusion. I have discussed a plan for Cardiac pa candi, EKG, Chest XR, aspirin. The pt currently denies chest pain. 1735 troponin negative at this time 1745 Cardiac panel is negative for an acute emergent process 1820 Chest XR is negative for an acute emergent process 1907 Discussed the case with Dr. Ochoa who at this time is agreeable with the plans for adm ission. I appreciate Dr. Ochoa 192 Pt has been transferred to the CDU and will now be in there care. Records Reviewed Old medical records. Nursing notes. Laboratory Evaluation Results Procedure Component Value Ref Range Date/Time Cardiac Panel [[id number]] (Abnormal) Collected:04/18/13 1718 Order Status:Completed Updated:04/18/13 1745 WBC 10.4 3.8 - 11.0 K/uL RBC 5.11 4.20 - 5.70 M/uL HGB 13.9 13.2 - 17.0 g/dL HCT 42.1 39.0 - 50.0 % MCV 82.4 80.0 - 100.0 fl MCH 27.2 27.0 - 34.0 pg MCHC 33.0 32.0 - 35.5 g/dL RDW SD 41.1 37 - 53 fl PLT 322 150 - 400 K/uL MPV 7.0 fl DIFF TYPE AUTOMATED NEUTROPHILS 61.3 % LYMPHOCYTES 26.5 % MONOCYTES 7.8 % EOSINOPHILS 3.5 % BASOPHILS 0.9 % NEUTROPHILS ABS 6.4 1.9 - 7.4 K/uL LYMPHOCYTES ABS 2.7 1.0 - 3.9 K/uL MONOCYTES ABS 0.8 0 - 0.8 K/uL EOSINOPHILS ABS 0.4 0 - 0.5 K/uL BASOPHILS ABS 0.1 0 - 0.1 K/uL SODIUM 137 135 - 143 mmol/L POTASSIUM 3.7 3.5 - 4.9 mmol/L CHLORIDE 103 99 - 109 mmol/L CO2 28 23 - 32 mmol/L ANION GAP AGAP 11 5 - 20 mmol/L GLUCOSE 212 (H) 65 - 99 mg/dL BUN 15 8 - 25 mg/dL CREATININE 1.14 0.70 - 1.30 mg/dL BUN/CREAT 13 CALCIUM 8.9 8.5 - 10.2 mg/dL TOTAL PROTEIN 8.0 6.3 - 8.2 g/dL Albumin 3.3 (L) 3.6 - 5.0 g/dL GLOBULIN 4.7 1.3 - 4.9 g/dL A/G 0.7 (L) 1.0 - 2.4 TBIL 0.3 0.1 - 1.5 mg/dL ALK PHOS 115 35 - 115 U/L AST 20 10 - 45 U/L ALT 22 10 - 65 U/L EGFR >60 >60 mL/min/1.73m2 CPK 107 55 - 400 U/L INR 1.0 APTT 26 23 - 32 seconds MMB 3.0 0.5 - 3.6 ng/mL CK-MB Index 2.8 POC cardiac troponin [[id number]] Collected:04/18/13 1719 Order Status:Completed Updated:04/18/13 1733 POC CARDIAC TROPONIN 0.00 0.00 - 0.10 ng/mL Radiology and EKG Evaluation Imaging Results XR Chest PA and Lateral (Final result) Result time:04/18/131812 Final result by Rad Results In Richard (04/18/13 18:13:15) Impression: No evidence of acute disease or active process. Patient's symptoms not explained by this t echnique. Narrative: History: 57 year-old male with pain. Technique: Frontal and lateral radiographic examination of the chest. 13 March 2013, prio r study for comparison. Findings: Cardiomediastinum is normal. Lungs are symmetrically inflated without pneumothorax, infiltrate, or effusion. Asymmetric disease the left lung base is less, appears to be an asymmetric focus of atelectasis or scar ring. 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 EKG Interpretation Rhythm: Sinus Ventricular Rate: 57 NE Interval: Normal ST Segments: Normal Significant Q-waves: None Blocks: None [place]: Normal axis Additional Comments: None ED Diagnoses Final diagnoses Chest pain at rest Sinus bradycardia on ECG Hyperglycemia Disposition: ED Disposition Admit/Observation Requested Unit:: Acute Care Bed request special needs: Telemetry Diagnosis?: chest pain 24 hour observation, chest pain rule out Follow-up Information None Discharge Medications: New Prescriptions No new medications Jonny Gr PA-C 04/18/132229 olYaakov lopez DO - 04/18/2013 5:38 PM PDT ED Provider Notes by Yaakov Bridges DO at 04/18/131737 Author: Yaakov Bridges DO Service: (none) Author Type: Physician Filed: 04/21/132357 Date of Service: 04/18/131737 Status: Signed Nurse School: Yaakov Bridges DO (Physician) Related Notes: Related Note by Jonny Gr PA-C (Physician Riveting Machine Operator Automatic - Certified) filed at 04/18/132229 I was personally available for consultation. We have discussed the case and I was involved in the medical decision making process. I have reviewed the charting and agree with the as sessment, treatment plan, and disposition of the patient as recorded by the MLP. Yaakov Bridges DO 04/21/132357 onversion Transactio daniel, Provider Unknown - 04/18/2013 5:21 PM PDT ED Notes by Carlos Morfin RN at 04/18/131720 Author: Carlos Morfin RN Service: (none) Author Type: Registered Nurse Filed: 04/18/131720 Date of Service: 04/18/131720 Status: Signed Nurse School: Carlos Morfin RN (Registered Nurse) 2 patient identifiers checked, patient gowned, side rails up x1. ID band placed on patient , call light instructed on and given to patient. Carlos Morfin RN 04/18/131720 docume nted in this encounter Plan of Treatment +--------+ + + + + | Date | Type | Specialty | Care Team | Description | +--------+ + + + + | 10/16/ | Anti-coag | Anticoagulation | Brittany Zaragoza | | | 2019 | visit | | [address] | | | | | | [place], | | | | | | [place] [address] | | | | | | [phone] | | | | | | | | +--------+ + + + + documented as of this encounter Procedures + +--------+ + + + | Procedure Name | Priori | Date/Time | Associated Diagnosis | Comments | | | ty | | | | + +--------+ + + + | POC GLUCOSE | Routin | 04/20/2013 | | Results for this | | | e | 5:46 AM | | procedure are in the | | | | PDT | | results section. | + +--------+ + + + | EXTERNAL LAB: CBC | Routin | 04/20/2013 | | Results for this | | | e | 5:26 AM | | procedure are in the | | | | PDT | | results section. | + +--------+ + + + | PHOSPHORUS | Routin | 04/20/2013 | | Results for this | | | e | 5:26 AM | | procedure are in the | | | | PDT | | results section. | + +--------+ + + + | MAGNESIUM | Routin | 04/20/2013 | | Results for this | | | e | 5:26 AM | | procedure are in the | | | | PDT | | results section. | + +--------+ + + + | COMPREHENSIVE | Routin | 04/20/2013 | | Results for this | | METABOLIC PANEL | e | 5:26 AM | | procedure are in the | | | | PDT | | results section. | + +--------+ + + + | POC GLUCOSE | Routin | 04/19/2013 | | Results for this | | | e | 10:03 PM | | procedure are in the | | | | PDT | | results section. | + +--------+ + + + | EXTERNAL LAB: OCCULT | Routin | 04/19/2013 | | Results for this | | BLOOD, SCREENING | e | 6:43 PM | | procedure are in the | | | | PDT | | results section. | + +--------+ + + + | POC GLUCOSE | Routin | 04/19/2013 | | Results for this | | | e | 4:13 PM | | procedure are in the | | | | PDT | | results section. | + +--------+ + + + | POC GLUCOSE | Routin | 04/19/2013 | | Results for this | | | e | 2:32 PM | | procedure are in the | | | | PDT | | results section. | + +--------+ + + + | NM MYOCARDIAL | Routin | 04/19/2013 | | Results for this | | PERFUSION MULT SPECT | e | 2:28 PM | | procedure are in the | | | | PDT | | results section. | + +--------+ + + + | POC GLUCOSE | Routin | 04/19/2013 | | Results for this | | | e | 11:21 AM | | procedure are in the | | | | PDT | | results section. | + +--------+ + + + | POC GLUCOSE | Routin | 04/19/2013 | | Results for this | | | e | 6:21 AM | | procedure are in the | | | | PDT | | results section. | + +--------+ + + + | EXTERNAL LAB: CBC | Routin | 04/19/2013 | | Results for this | | | e | 6:03 AM | | procedure are in the | | | | PDT | | results section. | + +--------+ + + + | LIPID PANEL | Routin | 04/19/2013 | | Results for this | | | e | 6:03 AM | | procedure are in the | | | | PDT | | results section. | + +--------+ + + + | TROPONIN I | Routin | 04/19/2013 | | Results for this | | | e | 6:03 AM | | procedure are in the | | | | PDT | | results section. | + +--------+ + + + | CK-MB | Routin | 04/19/2013 | | Results for this | | | e | 6:03 AM | | procedure are in the | | | | PDT | | results section. | + +--------+ + + + | MAGNESIUM | Routin | 04/19/2013 | | Results for this | | | e | 6:03 AM | | procedure are in the | | | | PDT | | results section. | + +--------+ + + + | CK TOTAL | Routin | 04/19/2013 | | Results for this | | | e | 6:03 AM | | procedure are in the | | | | PDT | | results section. | + +--------+ + + + | COMPREHENSIVE | Routin | 04/19/2013 | | Results for this | | METABOLIC PANEL | e | 6:03 AM | | procedure are in the | | | | PDT | | results section. | + +--------+ + + + | ECG 12 LEAD | Routin | 04/19/2013 | | Results for this | | | e | 4:52 AM | | procedure are in the | | | | PDT | | results section. | + +--------+ + + + | TROPONIN I | Routin | 04/18/2013 | | Results for this | | | e | 11:41 PM | | procedure are in the | | | | PDT | | results section. | + +--------+ + + + | CK-MB | Routin | 04/18/2013 | | Results for this | | | e | 11:41 PM | | procedure are in the | | | | PDT | | results section. | + +--------+ + + + | CK TOTAL | Routin | 04/18/2013 | | Results for this | | | e | 11:41 PM | | procedure are in the | | | | PDT | | results section. | + +--------+ + + + | POC GLUCOSE | Routin | 04/18/2013 | | Results for this | | | e | 9:35 PM | | procedure are in the | | | | PDT | | results section. | + +--------+ + + + | URINALYSIS, REFLEX | Routin | 04/18/2013 | | Results for this | | MICROSCOPIC AND/OR | e | 9:33 PM | | procedure are in the | | CULTURE | | PDT | | results section. | + +--------+ + + + | CT ANGIOGRAM | Routin | 04/18/2013 | | Results for this | | PULMONARY | e | 9:32 PM | | procedure are in the | | | | PDT | | results section. | + +--------+ + + + | XR CHEST 2 VIEWS | Routin | 04/18/2013 | | Results for this | | | e | 5:58 PM | | procedure are in the | | | | PDT | | results section. | + +--------+ + + + | ECG 12 LEAD | Routin | 04/18/2013 | | Results for this | | | e | 5:18 PM | | procedure are in the | | | | PDT | | results section. | + +--------+ + + + | HISTORICAL LAB PANEL | Routin | 04/18/2013 | | Results for this | | RESULT | e | 5:18 PM | | procedure are in the | | | | PDT | | results section. | + +--------+ + + + | D-DIMER | Routin | 04/18/2013 | | Results for this | | | e | 5:18 PM | | procedure are in the | | | | PDT | | results section. | + +--------+ + + + | MAGNESIUM | Routin | 04/18/2013 | | Results for this | | | e | 5:18 PM | | procedure are in the | | | | PDT | | results section. | + +--------+ + + + | LIPASE | Routin | 04/18/2013 | | Results for this | | | e | 5:18 PM | | procedure are in the | | | | PDT | | results section. | + +--------+ + + + | HEMOGLOBIN A1C | Routin | 04/18/2013 | | Results for this | | | e | 5:18 PM | | procedure are in the | | | | PDT | | results section. | + +--------+ + + + documented in this encounter Results POC Glucose (04/20/2013 5:46 AM PDT) + + + + + + | Component | Value | Ref Range | Performed | Pathologist | | | | | At | Signature | + + + + + + | Glucose, | 155 (H)Comment: Testing | 65 - 99 mg/dL | EXTERNAL | | | Fingerstick | performed at [facility] [place];[address] | | LAB | | | | [address];[place] | | | | | | [address] | | | | + + + + + + + + | Specimen | + + | | + + + +---------+ + + | Performing | Address | City/State/Zipcode | Phone Number | | Organization | | | | + +---------+ + + | EXTERNAL LAB | | | | + +---------+ + + External Lab: CBC (04/20/2013 5:26 AM PDT) + + + + + + | Component | Value | Ref Range | Performed | Pathologist | | | | | At | Signature | + + + + + + | WBC | 10.7Comment: Testing | 3.8 - 11.0 K/uL | EXTERNAL | | | | performed at [facility], [address] | | LAB | | | | [address], | | | | | | [place] [address] | | | | + + + + + + | Non- | 4.95Comment: Testing | 4.20 - 5.70 | EXTERNAL | | | Red Blood | performed at [facility], [address] | M/uL | LAB | | | Cells | [address], | | | | | Counted | [place] [address] | | | | + + + + + + | Hemoglobin | 13.3Comment: Testing | 13.2 - 17.0 | EXTERNAL | | | | performed at [facility], [address] | g/dL | LAB | | | | [address], | | | | | | [place] [address] | | | | + + + + + + | Hematocrit, | 40.4Comment: Testing | 39.0 - 50.0 % | EXTERNAL | | | POC | performed at [facility], [address] | | LAB | | | | [address], | | | | | | [place] [address] | | | | + + + + + + | MCV | 81.6Comment: Testing | 80.0 - 100.0 fl | EXTERNAL | | | | performed at [facility], [address] | | LAB | | | | [address], | | | | | | [place] [address] | | | | + + + + + + | MCH | 26.8 (L)Comment: Testing | 27.0 - 34.0 pg | EXTERNAL | | | | performed at [facility], [address] | | LAB | | | | [address], | | | | | | [place] [address] | | | | + + + + + + | MCHC | 32.9Comment: Testing | 32.0 - 35.5 | EXTERNAL | | | | performed at [facility], [address] | g/dL | LAB | | | | [address], | | | | | | [place] [address] | | | | + + + + + + | RDW-CV | 40.7Comment: Testing | 37 - 53 fl | EXTERNAL | | | | performed at [facility], [address] | | LAB | | | | [address], | | | | | | [place] [address] | | | | + + + + + + | Platelet | 265Comment: Testing | 150 - 400 K/uL | EXTERNAL | | | Count | performed at [facility], [address] | | LAB | | | Plasma | [address], | | | | | | [place] [address] | | | | + + + + + + | MPV | 7.7Comment: Testing | fl | EXTERNAL | | | | performed at [facility], [address] | | LAB | | | | [address], | | | | | | [place] [address] | | | | + + + + + + | Differentia | AUTOMATEDComment: | | EXTERNAL | | | l Type | Testing performed at | | LAB | | | | [facility], [address] | | | | | | [place] | | | | | | [address] | | | | + + + + + + | % Segmented | 66.2Comment: Testing | % | EXTERNAL | | | | performed at [facility], [address] | | LAB | | | Neutrophils | [address], | | | | | | [place] [address] | | | | + + + + + + | % | 22.8Comment: Testing | % | EXTERNAL | | | Lymphocytes | performed at [facility], [address] | | LAB | | | | [address], | | | | | | [place] [address] | | | | + + + + + + | % Monocytes | 7.8Comment: Testing | % | EXTERNAL | | | | performed at [facility], [address] | | LAB | | | | [address], | | | | | | [place] [address] | | | | + + + + + + | % | 2.8Comment: Testing | % | EXTERNAL | | | Eosinophils | performed at [facility], [address] | | LAB | | | [address], | | | | | | [place] [address] | | | | + + + + + + | % Basophils | 0.4Comment: Testing | % | EXTERNAL | | | | performed at [facility], [address] | | LAB | | | [address], | | | | | | [place] [address] | | | | + + + + + + | Absolute | 7.1Comment: Testing | 1.9 - 7.4 K/uL | EXTERNAL | | | Segmented | performed at [facility], [address] | | LAB | | | Neutrophils | [address], | | | | | | [place] [address] | | | | + + + + + + | Absolute | 2.4Comment: Testing | 1.0 - 3.9 K/uL | EXTERNAL | | | Lymphocytes | performed at [facility], [address] | | LAB | | | | [address], | | | | | | [place] [address] | | | | + + + + + + | Absolute | 0.8Comment: Testing | 0 - 0.8 K/uL | EXTERNAL | | | Monocytes | performed at [facility], [address] | | LAB | | | | [address], | | | | | | [place] [address] | | | | + + + + + + | Absolute | 0.3Comment: Testing | 0 - 0.5 K/uL | EXTERNAL | | | Eosinophils | performed at [facility], [address] | | LAB | | | | [address], | | | | | | [place] [address] | | | | + + + + + + | Absolute | 0.0Comment: Testing | 0 - 0.1 K/uL | EXTERNAL | | | Basophils | performed at [facility], [address] | | LAB | | | | [address], | | | | | | [place] [address] | | | | + + + + + + | RBC | Comment: 1+ | | EXTERNAL | | | Morphology | HypochromiaTesting | | LAB | | | | performed at [facility], [address] | | | | | | [address], | | | | | | [place] [address] | | | | + + + + + + + + | Specimen | + + | Blood specimen | | (specimen) | + + + +---------+ + + | Performing | Address | City/State/Zipcode | Phone Number | | Organization | | | | + +---------+ + + | EXTERNAL LAB | | | | + +---------+ + + Phosphorus (04/20/2013 5:26 AM PDT) + + + + + + | Component | Value | Ref Range | Performed | Pathologist | | | | | At | Signature | + + + + + + | PHOSPHORUS | 3.1Comment: Testing | 2.3 - 4.8 mg/dL | EXTERNAL | | | | performed at [facility], [address] | | LAB | | | | [address], | | | | | | [place] [address] | | | | + + + + + + + + | Specimen | + + | Blood specimen | | (specimen) | + + + +---------+ + + | Performing | Address | City/State/Zipcode | Phone Number | | Organization | | | | + +---------+ + + | EXTERNAL LAB | | | | + +---------+ + + Magnesium (04/20/2013 5:26 AM PDT) + + + + + + | Component | Value | Ref Range | Performed | Pathologist | | | | | At | Signature | + + + + + + | Magnesium | 1.8Comment: Testing | 1.7 - 2.4 mg/dL | EXTERNAL | | | | performed at [facility], [address] | | LAB | | | | [address], | | | | | | [place] [address] | | | | + + + [...] + +---------+ + + Comprehensive Metabolic Panel (04/20/2013 5:26 AM PDT) + + + + [...] | LAB | | | | [address], | | | | | | [place] [address] | | | | + + + + + + | K | 3.6Comment: Testing | 3.5 - 4.9 | EXTERNAL | | | | performed at [facility], [address] | mmol/L | LAB | | | | [address], | | | | | | [place] [address] | | | | + + + + + + | Cl | 104Comment: Testing | 99 - 109 mmol/L | EXTERNAL | | | | performed at [facility], [address] | | LAB | | | | [address], | | | | | | [place] [address] | | | | + + + + + + | CO2 | 28Comment: Testing | 23 - 32 mmol/L | EXTERNAL | | | | performed at [facility], [address] | | LAB | | | | [address], | | | | | | [place] [address] | | | | + + + + + + | Anion Gap | 10Comment: Testing | 5 - 20 mmol/L | EXTERNAL | | | | performed at [facility], [address] | | LAB | | | | [address], | | | | | | [place] [address] | | | | + + + + + + | Glucose, | 172 (H)Comment: Testing | 65 - 99 mg/dL | EXTERNAL | | | Fasting | performed at [facility], [address] | | LAB | | | | [address], | | | | | | [place] [address] | | | | + + + + + + | BUN | 16Comment: Testing | 8 - 25 mg/dL | EXTERNAL | | | | performed at [facility], [address] | | LAB | | | | [address], | | | | | | [place] [address] | | | | + + + + + + | Creatinine | 1.00Comment: Testing | 0.70 - 1.30 | EXTERNAL | | | | performed at [facility], [address] | mg/dL | LAB | | | | [address], | | | | | | [place] [address] | | | | + + + + + + | BUN/Creatin | 16Comment: Testing | | EXTERNAL | | | ine Ratio | performed at [facility], [address] | | LAB | | | | [address], | | | | | | [place] [address] | | | | + + + + + + | Calcium | 9.1Comment: Testing | 8.5 - 10.2 | EXTERNAL | | | | performed at [facility], [address] | mg/dL | LAB | | | | [address], | | | | | | [place] [address] | | | | + + + + + + | Protein, | 7.0Comment: Testing | 6.3 - 8.2 g/dL | EXTERNAL | | | Total | performed at [facility], [address] | | LAB | | | | [address], | | | | | | [place] [address] | | | | + + + + + + | Albumin | 3.6Comment: Testing | 3.6 - 5.0 g/dL | EXTERNAL | | | | performed at [facility], [address] | | LAB | | | | [address], | | | | | | [place] [address] | | | | + + + + + + | Globulin | 3.4Comment: Testing | 1.3 - 4.9 g/dL | EXTERNAL | | | | performed at [facility], [address] | | LAB | | | | [address], | | | | | | [place] [address] | | | | + + + + + + | A/G Ratio | 1.1Comment: Testing | 1.0 - 2.4 | EXTERNAL | | | | performed at [facility], [address] | | LAB | | | | [address], | | | | | | [place] [address] | | | | + + + + + + | Bilirubin | 0.3Comment: Testing | 0.1 - 1.5 mg/dL | EXTERNAL | | | Total | performed at [facility], [address] | | LAB | | | | [address], | | | | | | [place] [address] | | | | + + + + + + | ALP, | 69Comment: Testing | 35 - 115 U/L | EXTERNAL | | | External | performed at [facility], [address] | | LAB | | | | [address], | | | | | | [place] [address] | | | | + + + + + + | AST | 14Comment: Testing | 10 - 45 U/L | EXTERNAL | | | | performed at [facility], [address] | | LAB | | | | [address], | | | | | | [place] [address] | | | | + + + + + + | ALT | 11Comment: Testing | 10 - 65 U/L | EXTERNAL | | | | performed at [facility], [address] | | LAB | | | | [address], | | | | | | [place] [address] | | | | + + + [...] | | | | | | at [facility], [address] | | | | | | [address], | | | | | | [place] [address] | | | | + + + + + + + + | Specimen | + + | Blood specimen | | (specimen) | + + + +---------+ + + | Performing | Address | City/State/Zipcode | Phone Number | | Organization | | | | + +---------+ + + | EXTERNAL LAB | | | | + +---------+ + + POC Glucose (04/19/2013 10:03 PM PDT) + + + + + + | Component | Value | Ref Range | Performed | Pathologist | | | | | At | Signature | + + + + + + | Glucose, | 245 (H)Comment: Testing | 65 - 99 mg/dL | EXTERNAL | | | Fingerstick | performed at [facility];[address] | | LAB | | | | [address];[place] | | | | | | [address] | | | | + + + + + + + + | Specimen | + + | | + + + +---------+ + + | Performing | Address | City/State/Zipcode | Phone Number | | Organization | | | | + +---------+ + + | EXTERNAL LAB | | | | + +---------+ + + External Lab: Occult Blood, Screening (04/19/2013 6:43 PM PDT) + + | Specimen | + + | Stool specimen | | (specimen) | + + + + + | Narrative | Performed At | + + + | Fecal Occult Blood NEGATIVE Testing | EXTERNAL LAB | | performed at [facility];[address] [place] [address];[place] [address] | | + + + + +---------+ + + | Performing | Address | City/State/Zipcode | Phone Number | | Organization | | | | + +---------+ + + | EXTERNAL LAB | | | | + +---------+ + + POC Glucose (04/19/2013 4:13 PM PDT) + + + + + + | Component | Value | Ref Range | Performed | Pathologist | | | | | At | Signature | + + + + + + | Glucose, | 210 (H)Comment: Testing | 65 - 99 mg/dL | EXTERNAL | | | Fingerstick | performed at [facility];[address] | | LAB | | | | [address];[place] | | | | | | [address] | | | | + + + + + + + + | Specimen | + + | | + + + +---------+ + + | Performing | Address | City/State/Zipcode | Phone Number | | Organization | | | | + +---------+ + + | EXTERNAL LAB | | | | + +---------+ + + POC Glucose (04/19/2013 2:32 PM PDT) + + + + + + | Component | Value | Ref Range | Performed | Pathologist | | | | | At | Signature | + + + + + + | Glucose, | 167 (H)Comment: Testing | 65 - 99 mg/dL | EXTERNAL | | | Fingerstick | performed at [facility];[address] | | LAB | | | | [address];[place], [place] | | | | | | [address] | | | | + + + + + + + + | Specimen | + + | | + + + +---------+ + + | Performing | Address | City/State/Zipcode | Phone Number | | Organization | | | | + +---------+ + + | EXTERNAL LAB | | | | + +---------+ + + [place] Myocardial Perfusion Mult SPECT (04/19/2013 2:28 PM PDT) + + | Specimen | + + | | + + + + + | Impressions | Performed At | + + + | 1. Somewhat limited study as prone imaging was not done, due to | | | patient preference. The fixed defect within the inferior wall is | | | probably due to diaphragmatic attenuation artifact, with infarct in | | | this region thought less likely. No definitive reversible defects to | | | suggest left ventricular wall ischemia. 2. Left ventricular stress | | | ejection fraction is calculated at 55%. | | + + + + + + | Narrative | Performed At | + + + | NORAH YA MYOCARDIAL PERFUSION SPECT - STRESS AND REST | | | 04/19/2013 2:28 PM HISTORY: 57 years. Male. Chest pain. | | | TECHNIQUE: A same day, dual-isotope protocol was used. For the | | | resting portion of the study the patient was injected intravenously | | | with 9.5 mCi of technetium 99 labeled Myoview. Gated SPECT imaging | | | was performed in the supine position. The patient was then | | | pharmacologically stressed with 0.4 mg of regadenoson intravenously | | | according to protocol. Resting heart rate vasiliy from 51 beats/min to | | | 82 beats/min which was 50% of the maximum age-predicted heart rate. | | | At the point of maximum stress, the patient received 45 mCi of | | | technetium 99m labeled Myoview intravenously. Gated SPECT images | | | were acquired in the supine position only. The patient was unable to | | | tolerate prone imaging. Chest pain: None. Arrhythmias: None. ST | | | segment changes: None. COMPARISON: Nuclear medicine myocardial | | | perfusion stress and rest study 03/30/11. FINDINGS: Decreased | | | radiopharmaceutical uptake within the proximal and mid inferior wall | | | is unchanged on stress and rest imaging suggesting diaphragmatic | | | attenuation artifact. No reversible defects are found. The wall | | | motion appears normal. The following functional stress data was | | | obtained: End-diastolic volume: 141 mL End-systolic volume: 63 mL | | | Ejection fraction: 55% The following functional rest data was | | | obtained: End-diastolic volume: 123 mL End-systolic volume: 46 mL | | | Ejection fraction: 62% The T.I.D. ratio is 1.16. | | + + + + + | Procedure Note | + + | Joaquin Ramos Conversion - 09/21/2018 3:31 PM SHALONDA TOBIN MYOCARDIAL PERFUSION | | SPECT - STRESS AND REST04/19/2013 2:28 PM HISTORY:57 years. Male. Chest pain. | | TECHNIQUE:A same day, dual-isotope protocol was used. For the resting portion of the | | study the patient was injected intravenously with 9.5 mCi of technetium 99 labeled | | Myoview. Gated SPECT imaging was performed in the supine position. The patient was then | | pharmacologically stressed with 0.4 mg of regadenoson intravenously according to | | protocol. Resting heart rate vasiliy from 51 beats/min to 82 beats/min which was 50% of | | the maximum age-predicted heart rate. At the point of maximum stress, the patient | | received 45 mCi of technetium 99m labeled Myoview intravenously. Gated SPECT images | | were acquired in the supine position only. The patient was unable to tolerate prone | | imaging. Chest pain: None.Arrhythmias: None.ST segment changes: None. COMPARISON:Nuclear | | medicine myocardial perfusion stress and rest study 03/30/11. FINDINGS:Decreased | | radiopharmaceutical uptake within the proximal and mid inferior wall is unchanged on | | stress and rest imaging suggesting diaphragmatic attenuation artifact. No reversible | | defects are found. The wall motion appears normal. The following functional stress data | | was obtained:End-diastolic volume: 141 mLEnd-systolic volume: 63 mLEjection fraction: | | 55% The following functional rest data was obtained:End-diastolic volume: 123 | | mLEnd-systolic volume: 46 mLEjection fraction: 62% The T.I.D. ratio is 1.16. IMPRESSION: | | 1. Somewhat limited study as prone imaging was not done, due to patient preference. | | The fixed defect within the inferior wall is probably due to diaphragmatic attenuation | | artifact, with infarct in this region thought less likely. No definitive reversible | | defects to suggest left ventricular wall ischemia.2. Left ventricular stress ejection | | fraction is calculated at 55%. | | 2:45 PM | |End-diastolic volume: 141 mL | |End-systolic volume: 63 mL | |Ejection fraction: 55% | | | |The following functional rest data was obtained: | |End-diastolic volume: 123 mL | |End-systolic volume: 46 mL | |Ejection fraction: 62% | | | |The T.I.D. ratio is 1.16. | | | |IMPRESSION: | |1. Somewhat limited study as prone imaging was not done, due to patient preference. The fi xed defect within the inferior wall is probably due to diaphragmatic attenuation artifact, w ith infarct in this region thought less likely. No definitive | |reversible defects to suggest left ventricular wall ischemia. | |2. Left ventricular stress ejection fraction is calculated at 55%. | | | | | + + POC Glucose (04/19/2013 11:21 AM PDT) + + + + + + | Component | Value | Ref Range | Performed | Pathologist | | | | | At | Signature | + + + + + + | Glucose, | 181 (H)Comment: Testing | 65 - 99 mg/dL | EXTERNAL | | | Fingerstick | performed at [facility];[address] | | LAB | | | [address];[place], [place] | | | | | | [address] | | | | + + + + + + + + | Specimen | + + | | + + + +---------+ + + | Performing | Address | City/State/Zipcode | Phone Number | | Organization | | | | + +---------+ + + | EXTERNAL LAB | | | | + +---------+ + + POC Glucose (04/19/2013 6:21 AM PDT) + + + + + + | Component | Value | Ref Range | Performed | Pathologist | | | | | At | Signature | + + + + + + | Glucose, | 191 (H)Comment: Testing | 65 - 99 mg/dL | EXTERNAL | | | Fingerstick | performed at [facility];[address] | | LAB | | | | [address];[place] | | | | | | [address] | | | | + + + + + + + + | Specimen | + + | | + + + +---------+ + + | Performing | Address | City/State/Zipcode | Phone Number | | Organization | | | | + +---------+ + + | EXTERNAL LAB | | | | + +---------+ + + CK-MB (04/19/2013 6:03 AM PDT) + + + + + -+ | Component | Value | Ref Range | Performed | Pathologist | | | | | At | Signature | + + + + + -+ | CK-MB | 1.8Comment: Testing | 0.5 - 3.6 ng/mL | EXTERNAL | | | | performed at [facility];[address] | | LAB | | | | [address];[place], [place] | | | | | | [address] | | | | + + + + + -+ | CK-MB Index | 2.3Comment: CK INDEX | | EXTERNAL | | [...] | + +---------+ + + Troponin I (04/19/2013 6:03 AM PDT) + + + + + [...] | | | | | | ACUTE MA Testing | | | | | | performed at [facility];[address] | | | | | | [facility];[place], [place] | | | | | | [address] | | | | + + + [...] + +---------+ + + External Lab: CBC (04/19/2013 6:03 AM PDT) + + + + + + | Component | Value | Ref Range | Performed | Pathologist | | | | | At | Signature | + + + + + + | WBC | 9.7Comment: Testing | 3.8 - 11.0 K/uL | EXTERNAL | | | | performed at [facility], [address] | | LAB | | | | [address], | | | | | | [place] [address] | | | | + + + + + + | Non- | 4.87Comment: Testing | 4.20 - 5.70 | EXTERNAL | | | Red Blood | performed at [facility], [address] | M/uL | LAB | | | Cells | [address], | | | | | Counted | [place] [address] | | | | + + + + + + | Hemoglobin | 13.4Comment: Testing | 13.2 - 17.0 | EXTERNAL | | | | performed at [facility], [address] | g/dL | LAB | | | | [address], | | | | | | [place] [address] | | | | + + + + + + | Hematocrit, | 40.3Comment: Testing | 39.0 - 50.0 % | EXTERNAL | | | POC | performed at [facility], [address] | | LAB | | | | [address], | | | | | | [place] [address] | | | | + + + + + + | MCV | 82.7Comment: Testing | 80.0 - 100.0 fl | EXTERNAL | | | | performed at [facility], [address] | | LAB | | | | [address], | | | | | | [place] [address] | | | | + + + + + + | MCH | 27.6Comment: Testing | 27.0 - 34.0 pg | EXTERNAL | | | | performed at [facility], [address] | | LAB | | | | [address], | | | | | | [place] [address] | | | | + + + + + + | MCHC | 33.3Comment: Testing | 32.0 - 35.5 | EXTERNAL | | | | performed at [facility], [address] | g/dL | LAB | | | | [address], | | | | | | [place] [address] | | | | + + + + + + | RDW-CV | 41.1Comment: Testing | 37 - 53 fl | EXTERNAL | | | | performed at [facility], [address] | | LAB | | | | [address], | | | | | | [place] [address] | | | | + + + + + + | Platelet | 264Comment: Testing | 150 - 400 K/uL | EXTERNAL | | | Count | performed at [facility], [address] | | LAB | | | Plasma | [address], | | | | | | [place] [address] | | | | + + + + + + | MPV | 7.7Comment: Testing | fl | EXTERNAL | | | | performed at [facility], [address] | | LAB | | | | [address], | | | | | | [place] [address] | | | | + + + + + + | Differentia | AUTOMATEDComment: | | EXTERNAL | | | l Type | Testing performed at | | LAB | | | | [facility], [address] | | | | | | [place] | | | | | | [address] | | | | + + + + + + | % Segmented | 59.4Comment: Testing | % | EXTERNAL | | | | performed at [facility], [address] | | LAB | | | Neutrophils | [address], | | | | | | [place] [address] | | | | + + + + + + | % | 28.2Comment: Testing | % | EXTERNAL | | | Lymphocytes | performed at [facility], [address] | | LAB | | | | [address], | | | | | | [place] [address] | | | | + + + + + + | % Monocytes | 8.9Comment: Testing | % | EXTERNAL | | | | performed at [facility], [address] | | LAB | | | | [address], | | | | | | [place] [address] | | | | + + + + + + | % | 3.1Comment: Testing | % | EXTERNAL | | | Eosinophils | performed at [facility], [address] | | LAB | | | | [address], | | | | | | [place] [address] | | | | + + + + + + | % Basophils | 0.4Comment: Testing | % | EXTERNAL | | | | performed at [facility], [address] | | LAB | | | | [address], | | | | | | [place] [address] | | | | + + + + + + | Absolute | 5.7Comment: Testing | 1.9 - 7.4 K/uL | EXTERNAL | | | Segmented | performed at [facility], [address] | | LAB | | | Neutrophils | [address], | | | | | | [place] [address] | | | | + + + + + + | Absolute | 2.7Comment: Testing | 1.0 - 3.9 K/uL | EXTERNAL | | | Lymphocytes | performed at [facility], [address] | | LAB | | | | [address], | | | | | | [place] [address] | | | | + + + + + + | Absolute | 0.9 (H)Comment: Testing | 0 - 0.8 K/uL | EXTERNAL | | | Monocytes | performed at [facility], [address] | | LAB | | | | [address], | | | | | | [place] [address] | | | | + + + + + + | Absolute | 0.3Comment: Testing | 0 - 0.5 K/uL | EXTERNAL | | | Eosinophils | performed at [facility], [address] | | LAB | | | | [address], | | | | | | [place] [address] | | | | + + + + + + | Absolute | 0.0Comment: Testing | 0 - 0.1 K/uL | EXTERNAL | | | Basophils | performed at [facility], [address] | | LAB | | | | [address], | | | | | | [place] [address] | | | | + + + + + + | RBC | Comment: 1+ | | EXTERNAL | | | Morphology | HypochromiaTesting | | LAB | | | | performed at [facility], [address] | | | | | | [address], | | | | | | [place] [address] | | | | + + + + + + + + | Specimen | + + | Blood specimen | | (specimen) | + + + +---------+ + + | Performing | Address | City/State/Zipcode | Phone Number | | Organization | | | | + +---------+ + + | EXTERNAL LAB | | | | + +---------+ + + Magnesium (04/19/2013 6:03 AM PDT) + + + + + + | Component | Value | Ref Range | Performed | Pathologist | | | | | At | Signature | + + + + + + | Magnesium | 1.8Comment: Testing | 1.7 - 2.4 mg/dL | EXTERNAL | | | | performed at [facility], [address] | | LAB | | | | [address], | | | | | | [place] [address] | | | | + + + + + + + + | Specimen | + + | Blood specimen | | (specimen) | + + + +---------+ + + | Performing | Address | City/State/Zipcode | Phone Number | | Organization | | | | + +---------+ + + | EXTERNAL LAB | | | | + +---------+ + + CK Total (04/19/2013 6:03 AM PDT) + + + + + + | Component | Value | Ref Range | Performed | Pathologist | | | | | At | Signature | + + + + + + | CK, Total | 80Comment: Testing | 55 - 400 U/L | EXTERNAL | | | | performed at [facility];[address] | | LAB | | | | [address];[place] | | | | | | [address] | | | | + + + + + + + + | Specimen | + + | Blood specimen | | (specimen) | + + + +---------+ + + | Performing | Address | City/State/Zipcode | Phone Number | | Organization | | | | + +---------+ + + | EXTERNAL LAB | | | | + +---------+ + + Lipid Panel (04/19/2013 6:03 AM PDT) + + + + + + | Component | Value | Ref Range | Performed | Pathologist | | | | | At | Signature | + + + + + + | Cholesterol | 129Comment: Testing | mg/dL | EXTERNAL | | | | performed at [facility], [address] | | LAB | | | | [address], | | | | | | [place] [address] | | | | + + + + + + | Triglycerid | 265 (H)Comment: Testing | mg/dL | EXTERNAL | | | es | performed at [facility], [address] | | LAB | | | | [address], | | | | | | [place] [address] | | | | + + + + + + | HDL | 23 (L)Comment: Testing | mg/dL | EXTERNAL | | | | performed at [facility], [address] | | LAB | | | | [address], | | | | | | [place] [address] | | | | + + + + + + | LDL, | 53Comment: Testing | mg/dL | EXTERNAL | | | Calculated | performed at [facility], [address] | | LAB | | | | [address], | | | | | | [place] [address] | | | | + + + [...] + +---------+ + + Comprehensive Metabolic Panel (04/19/2013 6:03 AM PDT) + + + + + [...] | | | | | [place] [address] | | | | + + + + + + | K | 3.7Comment: Testing | 3.5 - 4.9 | EXTERNAL | | | | performed at [facility], [address] | mmol/L | LAB | | | | [address], | | | | | | [place] [address] | | | | + + + + + + | Cl | 103Comment: Testing | 99 - 109 mmol/L | EXTERNAL | | | | performed at [facility], [address] | | LAB | | | | [address], | | | | | | [place] [address] | | | | + + + + + + | CO2 | 29Comment: Testing | 23 - 32 mmol/L | EXTERNAL | | | | performed at [facility], [address] | | LAB | | | | [address], | | | | | | [place] [address] | | | | + + + + + + | Anion Gap | 10Comment: Testing | 5 - 20 mmol/L | EXTERNAL | | | | performed at [facility], [address] | | LAB | | | | [address], | | | | | | [place] [address] | | | | + + + + + + | Glucose, | 209 (H)Comment: Testing | 65 - 99 mg/dL | EXTERNAL | | | Fasting | performed at [facility], [address] | | LAB | | | | [address], | | | | | | [place] [address] | | | | + + + + + + | BUN | 16Comment: Testing | 8 - 25 mg/dL | EXTERNAL | | | | performed at [facility], [address] | | LAB | | | | [address], | | | | | | [place] [address] | | | | + + + + + + | Creatinine | 1.00Comment: Testing | 0.70 - 1.30 | EXTERNAL | | | | performed at [facility], [address] | mg/dL | LAB | | | | [address], | | | | | | [place] [address] | | | | + + + + + + | BUN/Creatin | 16Comment: Testing | | EXTERNAL | | | ine Ratio | performed at [facility], [address] | | LAB | | | | [address], | | | | | | [place] [address] | | | | + + + + + + | Calcium | 9.0Comment: Testing | 8.5 - 10.2 | EXTERNAL | | | | performed at [facility], [address] | mg/dL | LAB | | | | [address], | | | | | | [place] [address] | | | | + + + + + + | Protein, | 7.0Comment: Testing | 6.3 - 8.2 g/dL | EXTERNAL | | | Total | performed at [facility], [address] | | LAB | | | | [address], | | | | | | [place] [address] | | | | + + + + + + | Albumin | 3.6Comment: Testing | 3.6 - 5.0 g/dL | EXTERNAL | | | | performed at [facility], [address] | | LAB | | | | [address], | | | | | | [place] [address] | | | | + + + + + + | Globulin | 3.4Comment: Testing | 1.3 - 4.9 g/dL | EXTERNAL | | | | performed at [facility], [address] | | LAB | | | | [address], | | | | | | [place] [address] | | | | + + + + + + | A/G Ratio | 1.1Comment: Testing | 1.0 - 2.4 | EXTERNAL | | | | performed at [facility], [address] | | LAB | | | | [address], | | | | | | [place] [address] | | | | + + + + + + | Bilirubin | 0.3Comment: Testing | 0.1 - 1.5 mg/dL | EXTERNAL | | | Total | performed at [facility], [address] | | LAB | | | | [address], | | | | | | [place] [address] | | | | + + + + + + | ALP, | 74Comment: Testing | 35 - 115 U/L | EXTERNAL | | | External | performed at [facility], [address] | | LAB | | | | [address], | | | | | | [place] [address] | | | | + + + + + + | AST | 16Comment: Testing | 10 - 45 U/L | EXTERNAL | | | | performed at [facility], [address] | | LAB | | | | [address], | | | | | | [place] [address] | | | | + + + + + + | ALT | 13Comment: Testing | 10 - 65 U/L | EXTERNAL | | | | performed at [facility], [address] | | LAB | | | | [address] [facility], | | | | | | [place] [address] | | | | + + + [...] | | | | | | at [facility], [address] | | | | | | [facility], | | | | | | [place] [address] | | | | + + + [...] + +---------+ + + ECG 12 lead (04/19/2013 4:52 AM PDT) + + + + + + | Component | Value | Ref Range | Performed | Pathologist | | | | | At | Signature | + + + + + + | DIAGNOSIS: | Sinus rhythm with | | EXTERNAL | | | | occasional Premature | | LAB | | | | ventricular | | | | | | complexesMinimal voltage | | | | | | criteria for LVH, may | | | | | | be normal | | | | | | variantNonspecific T | | | | | | wave abnormalityAbnormal | | | | | | ECGWhen compared with | | | | | | ECG of 18-APR-2013 | | | | | | 17:18,Premature | | | | | | ventricular complexes | | | | | | are now PresentQT has | | | | | | shortenedConfirmed by | | | | | | Rose Summers ([id number]) | | | | | | on 04/19/2013 11:11:40 PM | | | | | | [...] | | + +---------+ + + CK-MB (04/18/2013 11:41 PM PDT) + + + + + -+ | Component | Value | Ref Range | Performed | Pathologist | | | | | At | Signature | + + + + + -+ | CK-MB | 2.1Comment: Testing | 0.5 - 3.6 ng/mL | EXTERNAL | | | | performed at [facility];[address] | | LAB | | | | [address] [facility];[place], [place] | | | | | | [address] | | | | + + + [...] | + +---------+ + + Troponin I (04/18/2013 11:41 PM PDT) + + + + + [...] | | | | | | ACUTE MA Testing | | | | | | performed at [facility];[address] | | | | | | [address];[place], [place] | | | | | | [address] | | | | + + + + + + + + | Specimen | + + | Blood specimen | | (specimen) | + + + +---------+ + + | Performing | Address | City/State/Zipcode | Phone Number | | Organization | | | | + +---------+ + + | EXTERNAL LAB | | | | + +---------+ + + CK Total (04/18/2013 11:41 PM PDT) + + + + + + | Component | Value | Ref Range | Performed | Pathologist | | | | | At | Signature | + + + + + + | CK, Total | 83Comment: Testing | 55 - 400 U/L | EXTERNAL | | | | performed at [facility];[address] | | LAB | | | | [address];[place], [place] | | | | | | [address] | | | | + + + + + + + + | Specimen | + + | Blood specimen | | (specimen) | + + + +---------+ + + | Performing | Address | City/State/Zipcode | Phone Number | | Organization | | | | + +---------+ + + | EXTERNAL LAB | | | | + +---------+ + + POC Glucose (04/18/2013 9:35 PM PDT) + + + + + + | Component | Value | Ref Range | Performed | Pathologist | | | | | At | Signature | + + + + + + | Glucose, | 176 (H)Comment: Testing | 65 - 99 mg/dL | EXTERNAL | | | Fingerstick | performed at [facility];[address] | | LAB | | | | [address];[place] | | | | | | [address] | | | | + + + + + + + + | Specimen | + + | | + + + +---------+ + + | Performing | Address | City/State/Zipcode | Phone Number | | Organization | | | | + +---------+ + + | EXTERNAL LAB | | | | + +---------+ + + Urinalysis, Reflex Microscopic and/or Culture (04/18/2013 9:33 PM PDT) + + + + + [...] | | | | | [place] [id number] | | | | + + + + + + | Clarity, | CLEARComment: Testing | | EXTERNAL | | | Urine | performed at [facility], [address] | | LAB | | | | [address], | | | | | | [place] [address] | | | | + + + + + + | Specific | 1.026Comment: Testing | 1.002 - 1.030 | EXTERNAL | | | Climax, | performed at [facility], [address] | | LAB | | | Urine | [address], | | | | | | [place] [address] | | | | + + + + + + | Leukocyte | NEGATIVEComment: Testing | | EXTERNAL | | | Esterase, | performed at [facility], [address] | | LAB | | | Urine | [address], | | | | | | [place] [address] | | | | + + + + + + | Nitrite, | NEGATIVEComment: Testing | | EXTERNAL | | | Urine | performed at [facility], [address] | | LAB | | | | [address], | | | | | | [place] [address] | | | | + + + + + + | Urobilinoge | 1.0Comment: Testing | mg/dL | EXTERNAL | | | n, Urine | performed at [facility], [address] | | LAB | | | [address], | | | | | | [place] [id number] | | | | + + + + + + | Protein, | NEGATIVEComment: Testing | mg/dL | EXTERNAL | | | Urine | performed at [facility], [address] | | LAB | | | | [address], | | | | | | [place] [address] | | | | + + + + + + | pH, Urine | 6.0Comment: Testing | 5.0 - 8.0 | EXTERNAL | | | | performed at [facility], [address] | | LAB | | | [address], | | | | | | [place] [address] | | | | + + + + + + | Blood, | NEGATIVEComment: Testing | | EXTERNAL | | | Urine | performed at [facility], [address] | | LAB | | | | [address], | | | | | | [place] [address] | | | | + + + + + + | Ketones | NEGATIVEComment: Testing | mg/dL | EXTERNAL | | | | performed at [facility], [address] | | LAB | | | | [address], | | | | | | [place] [address] | | | | + + + + + + | Bilirubin, | NEGATIVEComment: Testing | | EXTERNAL | | | Urine | performed at [facility], [address] | | LAB | | | | [address], | | | | | | [place] [address] | | | | + + + + + + | Glucose, | 100 (A)Comment: Testing | mg/dL | EXTERNAL | | | Urine | performed at [facility], [address] | | LAB | | | | [address], | | | | | | [place] [address] | | | | + + + [...] + + CT Angiogram Pulmonary w Contrast (04/18/2013 9:32 PM PDT) + + | Specimen | + + | | + + + + + | Impressions | Performed At | + + + | 1. No infiltrate or evidence of pulmonary embolic disease 2. | | | Acute symptoms not explained by this examination. Electronically | | | signed by Elias Underwood MD on 04/18/2013 9:42 PM | | + + + + + + | Narrative | Performed At | + + + | HISTORY: 57-year-old male with COPD and shortness of breath with | | | chest pain. TECHNIQUE: CT pulmonary angiogram after the uneventful | | | administration of 80 cc of Isovue 370. CT pulmonary angiogram with | | | MIP images. Coronal imaging through the pulmonary arterial tree. | | | None similar- prior study for comparison. 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 Lung windows demonstrate no infiltrate, effusion or | | | discrete lesion. There is no evidence of severe parenchymal | | | destruction or high-grade bronchitis to correlate with the patient's | | | history of COPD. There is at most mild symmetric pulmonary | | | hyperinflation. Dependent atelectasis. Bone windows are without | | | fracture or aggressive lesion. Degenerative changes as commonly seen | | | in a patient of this age. What is seen of the abdomen demonstrates | | | no evident lesion. Clips in the gallbladder fossa post | | | cholecystectomy and mild fatty infiltration of the liver. Soft | | | tissue windows the chest demonstrate no adenopathy. Airway, esophagus | | | and thyroid are unremarkable. Configuration aortic arch is normal. | | | CT angiogram demonstrates a high sensitivity examination with | | | opacification of the pulmonary trunk to 280 Hounsfield units. No | | | evidence of pulmonary embolic disease. | | + + + + + | Procedure Note | + + | Richard, Rad Conversion - 09/21/2018 3:31 PM PDT HISTORY: 57-year-old male with COPD and | | shortness of breath with chest pain. TECHNIQUE: CT pulmonary angiogram after the | | uneventful administration of 80 cc of Isovue 370. CT pulmonary angiogram with MIP | | images. Coronal imaging through the pulmonary arterial tree. None similar- prior study | | for comparison. 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 Lung windows demonstrate no | | infiltrate, effusion or discrete lesion. There is no evidence of severe parenchymal | | destruction or high-grade bronchitis to correlate with the patient's history of COPD. | | There is at most mild symmetric pulmonary hyperinflation. Dependent atelectasis. Bone | | windows are without fracture or aggressive lesion. Degenerative changes as commonly seen | | in a patient of this age. What is seen of the abdomen demonstrates no evident lesion. | | Clips in the gallbladder fossa post cholecystectomy and mild fatty infiltration of the | | liver. Soft tissue windows the chest demonstrate no adenopathy. Airway, esophagus and | | thyroid are unremarkable. Configuration aortic arch is normal. CT angiogram demonstrates | | a high sensitivity examination with opacification of the pulmonary trunk to 280 | | Hounsfield units. No evidence of pulmonary embolic disease. IMPRESSION: 1. No | | infiltrate or evidence of pulmonary embolic disease 2. Acute symptoms not explained by | | this examination. | |CT angiogram demonstrates a high sensitivity examination with opacification of the pulmonar y trunk to 280 Hounsfield units. No evidence of pulmonary embolic disease. | | | |IMPRESSION: | | | |1. No infiltrate or evidence of pulmonary embolic disease | | | |2. Acute symptoms not explained by this examination. | | | | | + + XR Chest 2 Vws (04/18/2013 5:58 PM PDT) + + | Specimen | + + | | + + + + + | Impressions | Performed At | + + + | No evidence of acute disease or active process. Patient's symptoms | | | not explained by this technique. | | + + + + + + | Narrative | Performed At | + + + | History: 57 year-old male with pain. Technique: Frontal and | | | lateral radiographic examination of the chest. 13 March 2013, prior | | | study for comparison. Findings: Cardiomediastinum is normal. | | | Lungs are symmetrically inflated without pneumothorax, infiltrate, or | | | effusion. Asymmetric disease the left lung base is less, appears to be | | | an asymmetric focus of atelectasis or scarring. Bones and soft | | | tissues are stable with confluent anterior osteoarthrosis of the | | | midthoracic spine | | + + + + ---------+ | Procedure Note | + ---------+ | Richard, Rad Conversion - 09/21/2018 3:31 PM PDT History: 57 year-old male with pain. | | Technique: Frontal and lateral radiographic examination of the chest. 13 March 2013, | | prior study for comparison. Findings: Cardiomediastinum is normal. Lungs are | | symmetrically inflated without pneumothorax, infiltrate, or effusion. Asymmetric disease | | the left lung base is less, appears to be an asymmetric focus of atelectasis or | | scarring. Bones and soft tissues are stable with confluent anterior osteoarthrosis of | | the midthoracic spine IMPRESSION: No evidence of acute disease or active process. | | Patient's symptoms not explained by this technique. | | | |IMPRESSION: | |No evidence of acute disease or active process. Patient's symptoms not explained by this te chnique. | | | | | + ---------+ ECG 12 lead (04/18/2013 5:18 PM PDT) + + + + + [...] | | | | with ECG of 09-APR-2013 | | | | | | 20:13,No significant | | | | | | [...] ([id number]), | | | | | | manager editorial LIZETTE WATERMAN (2) | | | | | | on 04/18/2013 6:31:19 PM | | | | | | [...] +---------+ + + HISTORICAL LAB PANEL RESULT (04/18/2013 5:18 PM PDT) + + + + + -+ | Component | Value | Ref Range | Performed | Pathologist | | | | | At | Signature | + + + + + -+ | WBC | 10.4Comment: Testing | 3.8 - 11.0 K/uL | EXTERNAL | | | | performed at [facility];[address] | | LAB | | | | [address];[place] | | | | | | [address] | | | | + + + + + -+ | Non- | 5.11Comment: Testing | 4.20 - 5.70 | EXTERNAL | | | Red Blood | performed at [facility];[address] | M/uL | LAB | | | Cells | [address];[place] | | | | | Counted | [phone] | | | | + + + + + -+ | Hemoglobin | 13.9Comment: Testing | 13.2 - 17.0 | EXTERNAL | | | | performed at [facility];[address] | g/dL | LAB | | | | [address];[place] | | | | | | [address] | | | | + + + + + -+ | Hematocrit, | 42.1Comment: Testing | 39.0 - 50.0 % | EXTERNAL | | | POC | performed at [facility];[address] | | LAB | | | | [address];[place] | | | | | | [address] | | | | + + + + + -+ | MCV | 82.4Comment: Testing | 80.0 - 100.0 fl | EXTERNAL | | | | performed at [facility];[address] | | LAB | | | | [address];[place] | | | | | | [address] | | | | + + + + + -+ | MCH | 27.2Comment: Testing | 27.0 - 34.0 pg | EXTERNAL | | | | performed at [facility];[address] | | LAB | | | | [address];[place] | | | | | | [address] | | | | + + + + + -+ | MCHC | 33.0Comment: Testing | 32.0 - 35.5 | EXTERNAL | | | | performed at [facility];[address] | g/dL | LAB | | | | [address];[place] | | | | | | [address] | | | | + + + + + -+ | RDW-CV | 41.1Comment: Testing | 37 - 53 fl | EXTERNAL | | | | performed at [facility];[address] | | LAB | | | | [address];[place] | | | | | | [address] | | | | + + + + + -+ | Platelet | 322Comment: Testing | 150 - 400 K/uL | EXTERNAL | | | Count | performed at [facility];[address] | | LAB | | | Plasma | [address];[place] | | | | | | [address] | | | | + + + + + -+ | MPV | 7.0Comment: Testing | fl | EXTERNAL | | | | performed at [facility];[address] | | LAB | | | | [address];[place] | | | | | | [address] | | | | + + + + + -+ | Differentia | AUTOMATEDComment: | | EXTERNAL | | | l Type | Testing performed at | | LAB | | | | [facility];[address];[place] [address] | | | | + + + + + -+ | % Segmented | 61.3Comment: Testing | % | EXTERNAL | | | | performed at [facility];[address] | | LAB | | | Neutrophils | [address];[place] | | | | | | [address] | | | | + + + + + -+ | % | 26.5Comment: Testing | % | EXTERNAL | | | Lymphocytes | performed at [facility];[address] | | LAB | | | | [address];[place] | | | | | | [address] | | | | + + + + + -+ | % Monocytes | 7.8Comment: Testing | % | EXTERNAL | | | | performed at [facility];[address] | | LAB | | | | [address];[place] | | | | | | [address] | | | | + + + + + -+ | % | 3.5Comment: Testing | % | EXTERNAL | | | Eosinophils | performed at [facility];[address] | | LAB | | | | [address];[place] | | | | | | [address] | | | | + + + + + -+ | % Basophils | 0.9Comment: Testing | % | EXTERNAL | | | | performed at [facility];[address] | | LAB | | | | [address];[place] | | | | | | [address] | | | | + + + + + -+ | Absolute | 6.4Comment: Testing | 1.9 - 7.4 K/uL | EXTERNAL | | | Segmented | performed at [facility];[address] | | LAB | | | Neutrophils | [address];[place] | | | | | | [address] | | | | + + + + + -+ | Absolute | 2.7Comment: Testing | 1.0 - 3.9 K/uL | EXTERNAL | | | Lymphocytes | performed at [facility];[address] | | LAB | | | | [address];[place] | | | | | | [address] | | | | + + + + + -+ | Absolute | 0.8Comment: Testing | 0 - 0.8 K/uL | EXTERNAL | | | Monocytes | performed at [facility];[address] | | LAB | | | | [address];[place] | | | | | | [address] | | | | + + + + + -+ | Absolute | 0.4Comment: Testing | 0 - 0.5 K/uL | EXTERNAL | | | Eosinophils | performed at [facility];[address] | | LAB | | | | [address];[place] | | | | | | [address] | | | | + + + + + -+ | Absolute | 0.1Comment: Testing | 0 - 0.1 K/uL | EXTERNAL | | | Basophils | performed at [facility];[address] | | LAB | | | | [address];[place] | | | | | | [address] | | | | + + + + + -+ | Na | 137Comment: Testing | 135 - 143 | EXTERNAL | | | | performed at [facility];[address] | mmol/L | LAB | | | | [address];[place] | | | | | | [address] | | | | + + + + + -+ | K | 3.7Comment: Testing | 3.5 - 4.9 | EXTERNAL | | | | performed at [facility];[address] | mmol/L | LAB | | | | [address];[place] | | | | | | [address] | | | | + + + + + -+ | Cl | 103Comment: Testing | 99 - 109 mmol/L | EXTERNAL | | | | performed at [facility];[address] | | LAB | | | | [address];[place] | | | | | | [address] | | | | + + + + + -+ | CO2 | 28Comment: Testing | 23 - 32 mmol/L | EXTERNAL | | | | performed at [facility];[address] | | LAB | | | | [address];[place] | | | | | | [address] | | | | + + + + + -+ | Anion Gap | 11Comment: Testing | 5 - 20 mmol/L | EXTERNAL | | | | performed at [facility];[address] | | LAB | | | | [address];[place] | | | | | | [address] | | | | + + + + + -+ | Glucose, | 212 (H)Comment: Testing | 65 - 99 mg/dL | EXTERNAL | | | Fasting | performed at [facility];[address] | | LAB | | | | [address];[place] | | | | | | [address] | | | | + + + + + -+ | BUN | 15Comment: Testing | 8 - 25 mg/dL | EXTERNAL | | | | performed at [facility];[address] | | LAB | | | | [address];[place] | | | | | | [address] | | | | + + + + + -+ | Creatinine | 1.14Comment: Testing | 0.70 - 1.30 | EXTERNAL | | | | performed at [facility];[address] | mg/dL | LAB | | | | [address];[place] | | | | | | [address] | | | | + + + + + -+ | BUN/Creatin | 13Comment: Testing | | EXTERNAL | | | ine Ratio | performed at [facility];[address] | | LAB | | | | [address];[place] | | | | | | [address] | | | | + + + + + -+ | Calcium | 8.9Comment: Testing | 8.5 - 10.2 | EXTERNAL | | | | performed at [facility];[address] | mg/dL | LAB | | | | [address];[place] | | | | | | [address] | | | | + + + + + -+ | Protein, | 8.0Comment: Testing | 6.3 - 8.2 g/dL | EXTERNAL | | | Total | performed at [facility];[address] | | LAB | | | | [address];[place] | | | | | | [address] | | | | + + + + + -+ | Albumin | 3.3 (L)Comment: Testing | 3.6 - 5.0 g/dL | EXTERNAL | | | | performed at [facility];[address] | | LAB | | | | [address];[place] | | | | | | [address] | | | | + + + + + -+ | Globulin | 4.7Comment: Testing | 1.3 - 4.9 g/dL | EXTERNAL | | | | performed at [facility];[address] | | LAB | | | | [address];[place] | | | | | | [address] | | | | + + + + + -+ | A/G Ratio | 0.7 (L)Comment: Testing | 1.0 - 2.4 | EXTERNAL | | | | performed at [facility];[address] | | LAB | | | | [address];[place] | | | | | | [address] | | | | + + + + + -+ | Bilirubin | 0.3Comment: Testing | 0.1 - 1.5 mg/dL | EXTERNAL | | | Total | performed at [facility];[address] | | LAB | | | | [address];[place] | | | | | | [address] | | | | + + + + + -+ | ALP, | 115Comment: Testing | 35 - 115 U/L | EXTERNAL | | | External | performed at [facility];[address] | | LAB | | | | [address];[place] | | | | | | [address] | | | | + + + + + -+ | AST | 20Comment: Testing | 10 - 45 U/L | EXTERNAL | | | | performed at [facility];[address] | | LAB | | | | [address];[place] | | | | | | [address] | | | | + + + + + -+ | ALT | 22Comment: Testing | 10 - 65 U/L | EXTERNAL | | | | performed at [facility];[address] | | LAB | | | | [facility];[place] | | | | | | [address] | | | | + + + [...] | | | | | at [facility];[address] [facility] | | | | | | [address];[place] [address] | | | | + + + + + -+ | CK, Total | 107Comment: Testing | 55 - 400 U/L | EXTERNAL | | | | performed at [facility];[address] | | LAB | | | | [address];[place] | | | | | | [address] | | | | + + + [...] | | | | performed at [facility];[address] | | | | | | [address];[place] | | | | | | [address] | | | | + + + + + -+ | aPTT, | 26Comment: Testing | 23 - 32 seconds | EXTERNAL | | | Patient | performed at [facility];[address] | | LAB | | | | [address];[place] | | | | | | [address] | | | | + + + + + -+ | CK-MB | 3.0Comment: Testing | 0.5 - 3.6 ng/mL | EXTERNAL | | | | performed at [facility];[address] | | LAB | | | | [address];[place], [place] | | | | | | [address] | | | | + + + + + -+ | CK-MB Index | 2.8Comment: CK INDEX [...] | | + +---------+ + + D-Dimer (04/18/2013 5:18 PM PDT) + + + + + + | Component | Value | Ref Range | Performed | Pathologist | | | | | At | Signature | + + + + + + | D-DIMER, | 1.27 (H)Comment: D Dimer | 0.19 - 0.50 [...] | | | | performed at [facility];[address] | | | | | | [address] [facility];[place], [place] | | | | | | [address] | | | | + + + + + + + + | Specimen | + + | Blood specimen | | (specimen) | + + + +---------+ + + | Performing | Address | City/State/Zipcode | Phone Number | | Organization | | | | + +---------+ + + | EXTERNAL LAB | | | | + +---------+ + + Magnesium (04/18/2013 5:18 PM PDT) + + + + + + | Component | Value | Ref Range | Performed | Pathologist | | | | | At | Signature | + + + + + + | Magnesium | 1.7Comment: Testing | 1.7 - 2.4 mg/dL | EXTERNAL | | | | performed at [facility];[address] | | LAB | | | | [address];[place], [place] | | | | | | [address] | | | | + + + + + + + + | Specimen | + + | Blood specimen | | (specimen) | + + + +---------+ + + | Performing | Address | City/State/Zipcode | Phone Number | | Organization | | | | + +---------+ + + | EXTERNAL LAB | | | | + +---------+ + + Lipase (04/18/2013 5:18 PM PDT) + + + + + + | Component | Value | Ref Range | Performed | Pathologist | | | | | At | Signature | + + + + + + | Lipase | 149Comment: Testing | 73 - 393 U/L | EXTERNAL | | | | performed at [facility];[address] | | LAB | | | | [address];[place], [place] | | | | | | [address] | | | | + + + + + + + + | Specimen | + + | Blood specimen | | (specimen) | + + + +---------+ + + | Performing | Address | City/State/Zipcode | Phone Number | | Organization | | | | + +---------+ + + | EXTERNAL LAB | | | | + +---------+ + + Hemoglobin A1C (04/18/2013 5:18 PM PDT) + + + + + + | Component | Value | Ref Range | Performed | Pathologist | | | | | At | Signature | + + + + + + | Hemoglobin | 7.9 (H)Comment: The | 4.0 - 6.0 % | EXTERNAL | | | A1c | [facility] | | LAB | | | [...] | | | | | performed at [facility], [address] | | | | | | [address] [facility] ([place], [place]), | | | | | | [place] [address] | | | | + + + + + + | Glycohemogl | 180Comment: The ADA | mg/dL | EXTERNAL | [...] | | | | | performed at [facility], [address] | | | | | | [facility] ([place], [place]), | | | | | | [place] [address] | | | | + + + [...] Chest pain, unspecified | + + | COPD (chronic obstructive pulmonary disease) (HCC) Chronic airway obstruction, not | | elsewhere classified | + + | Diabetes mellitus type II Type II or unspecified type diabetes mellitus without | | mention of complication, not stated as uncontrolled | + + | HTN (hypertension) Unspecified essential hypertension | + + | Hyperlipidemia Other and unspecified hyperlipidemia | + + | Chest pain at rest Chest pain, unspecified | + + | Sinus bradycardia on ECG Other specified cardiac dysrhythmias | + + | Hyperglycemia Other abnormal glucose | + + documented in this encounter
--- OUTSIDE RECORDS SUMMARY | ~2019-10-12 | XMS | Encounter Summary ---
Demographics + + + | Address | [address] | | | [place] [address] | + + + | Home Phone | | + + + | Preferred Language | Unknown | + + + | Marital Status | | + + + | Temple Affiliation | 1027 | + + + | Race | White | + + + | Ethnic Group | Not or | + + + Author + + + | Author | [facility] | | | and [place] | + + + | Organization | [facility] | | | and [place] | + + + | Address | Unknown | + + + | Phone | Unavailable | + + + Support + + + + + | Name | Relationship | Address | Phone | + + + + + | Sammi Kohler | ECON | [place] [address] | | + + + + + Care Team Providers + +------+ + | Care Sock Mender Name | Role | Phone | + +------+ + PCP | Unavailable | + +------+ + Encounter Details +--------+ + + + + | Date | Type | Department | Care Team | Description | +--------+ + + + + | 03/17/ | Emergency | [facility] | Ger Llamas, | Visit for suture | | 2015 | | MEDICAL CENTER | [address] | removal | | | | EMERGENCY CENTER | [place] [address] | | | | | [address] | [phone] | | | | | [place], [place] | | | | | | [address] | | | | | | [phone] | | | +--------+ + + + [...] Author: QUINN Lea Service: (none) Author Type: Lay Out Carpenter Filed: 03/17/141029 Date of Service: 03/17/141029 Status: Signed Certified Family Mediator: QUINN Lea (Lay Out Carpenter) This pt is case managed by the [facility] Program. The pt's care plan guidel andrei are as follows. Please contact the Emergency Department Switch Maker for assistance as needed Send or Download documents Care Recommendation: Kevyn has a printed Crisis Plan at the Assisted Living Facility that he is to follow before coming to the ED for non life-threatening issues. Please discuss with Kevyn when he present s to the ED The following guidelines were formulated by the ED Care Guidelines Committee of the [facility] Consistent Care Program on May 21, 2013. No controlled substances should be administered in the ED or prescribed from the ED for sub jective pain. Past Medical & Surgical History: Primary Care Provider (PCP) is CRUZITO GUTIÉRREZ DO at [phone] . Notify PCP if giving any additional narcotics for objective findings. [facility] Medical History: 1. Diabetes-He is on a sliding scale after meals, routine insulin before meals and takes La ntus at night. A1C April, = 7.9%. He was referred to an supervisor gear repair in February, 4. 2. Chest Pain- Coronary [...] the GE junction (requiring managem ent in [place] at ), rectal ulcer and internal hemorrhoids. 10. Hernia- He has been referred to Dr. Vargas. Problem List: He needs to make regular visits to see his PCP in light of his chronic conditions. This patient is developmentally delayed and has multiple chronic conditions and providers. He would benefit from having a Switch Maker assist him in coordinating his care. There is an alternate plan in place for Kevyn- He may take a taxi (paid for my ACCP) to the Urgent Care Clinic ([facility] ) for evaluation instead of the ED. The have been provided his pertinent medical records. Kevyn and the [facility] are aware of this plan. History of Behavioral Health Conditions: He has depression and anxiety- This is managed by his PCP. He takes Paxil and abilify. He has been referred to [facility] in February. According to [facility], he never establish ed care. Patient has now been scheduled twice and cancels at the last minute. Pain/Opioid Agreement: Kevyn has an order at the Assisted Living Facility for hydrocodone as needed. He does not h ave a diagnosis of chronic pain. Please see PIGMENT FURNACE TENDER for prescribing history. Social History or Identified Risk: - Fall Risk - Non adherence - Transportation Issues Social History: Kevyn lives at [facility] . He may require another level of care given the number of ED visits at enrollment (22 in the last year)-please contact his [facility] Ca se Certified Composites Technician (Fermin Preston) to discuss. Kevyn is developmentally delayed- Patient may benefit from having someone with him at his d octor's appointments. He has applied for Dial-A-Ride services (April,) Applied for a Health Home for this client through [facility]- please review Provider One to determ ine if one has been assigned. Additional Information: This patient is case managed by the [place] Consistent Care Program. Please contact the carton gluing machine operator at your hospital for any immediate or post ED discharge needs this patient may have. Please contact Tari at [facility] at when patient pr [...] ED Notes by Shree Reilly RN at 03/17/141052 Author: Shree Reilly RN Service: (none) Author Type: Registered Nurse Filed: 03/17/141052 Date of Service: 03/17/141052 Status: Signed Certified Family Mediator: Shree Reilly RN (Registered Nurse) Sutures removed. Shree Reilly RN 03/17/141052 athes on, Ger Barrios MD - 03/17/2014 10:41 AM PST ED Provider Notes by Ger Llamas MD at 03/17/14 1041 Author: Ger Llamas MD Service: (none) Author Type: Physician Filed: 03/17/14 1751 Date of Service: 03/17/141040 Status: Signed Certified Family Mediator: Ger Llamas MD (Physician) [facility] Department of Emergency Medicine 10:41 AM [...] CHOLECYSTECTOMY; Surgeon: Jevon Vargas DO; Location: [facility] MAIN OR; Service: General; Laterality: N/A; Abdominal surgery Cholecystectomy Skin cancer excision 10/10/2012 Procedure: EXCISION - SKIN CANCER; Surgeon: Sy Fierro MD; Location: [facility] MAIN OR ; Service: Plastics; Laterality: Left; upper arm and upper back w/frozen section Esophagogastroduodenoscopy 03/03/2013 Procedure: ESOPHAGOGASTRODUODENOSCOPY; Surgeon: Howie Gibson MD; Location: [facility] ENDOSCOPY; S ervice: Gastroenterology; Laterality: N/A; Colonoscopy 03/04/2013 Procedure: COLONOSCOPY; Surgeon: Howie Gibson MD; Location: [facility] ENDOSCOPY; Service: Gastroe nterology; Laterality: N/A; Upper gastrointestinal endoscopy Skin biopsy Hernia repair 07/03/2013 Procedure: LAPAROSCOPIC - HERNIA - INCISIONAL; Surgeon: Jevon Vargas DO; Location: [facility] MAIN OR; Service: General; Laterality: N/A; Prior to Admission medications Medication Sig Start Date End Date Taking? Authorizing Provider Albuterol Sulfate (VENTOLIN HFA IN) Inhale 2 puffs into the lungs as needed. 108 mcg/act Historical Provider Dctai-J-Tycbbngzdkzqe (BEANO) TABS Take 150 Units by mouth [...] daily. 180 mg at hs 11/30/13 11/30/14 [facility] carlyn Mae MD docusate sodium (COLACE) 100 [...] 100 mg by mouth nightly. Historical Provider tfbcpnamh-iyloabyz-ktkrtfpuf hydroxide-simethicone Take 40 mLs by mouth daily [...] sore throat CV/Resp: Negative for chest pain, qkslrjqpr-nf-rephwo, cough GI: Negative for abdominal pain, nausea, [...] Contact Info Jerrell Gutiérrez, DO As needed [facility] [address] [facility] Emergency Department If symptoms worsen [address] [place] [id number] Discharge Medications: Discharge Medication List as of 03/17/2014 10:56 AM Procedures Additional Documentation Procedures Attending Note: Documentation assistance provided by Naseem Watson (Scribe). Information recorded by the scribe has been reviewed and validated by me. I ag ree with its contents. MD Ger Moser MD 03/17/14 7405 onversion Transact ion, Provider Unknown - 03/17/2014 10:27 AM PSTFormatting of this note might be different fr om the original. ED Notes by Shree Reilly RN at 03/17/14 7665 Author: Shree Reilly RN Service: (none) Author Type: Registered Nurse Filed: 03/17/14 1027 Date of Service: 03/17/141026 Status: Signed Certified Family Mediator: Shree Reilly RN (Registered Nurse) Suture site on forehead is clean dry and intact. Wound looks well healed w/o S/sx of infect ion. Shree Reilly RN 03/17/141026 ONDAdokole wilson in this encounter Plan of Treatment +--------+ + + + + | Date | Type | Specialty | Care Team | Description | +--------+ + + + + | 10/16/ | Anti-coag | Anticoagulation | Brittany Zaragoza | | | 2019 | visit | | [address] | | | | | | [address] [place], | | | | | | [place] [address] | | | | | | [phone] | | | | | | | | +--------+ + + + + documented as of this encounter Visit Diagnoses + + | Diagnosis | + + | Visit for suture removal Encounter for removal of sutures | + + documented in this encounter
--- OUTSIDE RECORDS SUMMARY | ~2019-10-12 | XMS | Encounter Summary ---
Demographics + + + | Address | [address] | | | [place] [address] | + + + | Home Phone [...] + + + | Author | [facility] | | | and [place] | + + + | Organization | [facility] | | | and [place] | + + + | Address | Unknown | + + + | Phone | Unavailable | + + + Support + + + + + | Name | Relationship | Address | Phone | + + + + + | Sammi Kohler | ECON | [place] [address] | | + + + + + Care Team Providers + +------+ + | Care Hospital Secretary Name | Role | Phone | + +------+ + | Mireya Pack NP | PCP | | + +------+ + Reason for Visit + +--------+ + | Reason | Onset | Comments | | | Date | | + +--------+ + | Lab Results | 03/28/ | | | | 2019 | | + +--------+ + Encounter Details +--------+ + + + + | Date | Type | Department | Care Team | Description | +--------+ + + + + | 03/28/ | Telephone | [facility] | Mireya Pack, | Lab Results | | 2020 | | [facility] [address] | BRUSH PAINTER [address] | | | | | [address] | [address] [place], | | | | | [place], [place] | [place] [address] | | | | | [address] | [phone] | | | | | [phone] | | | +--------+ + + + [...] encounter Miscellaneous Notes Telephone Encounter - Debo Bennett Riveting Machine Operator - 03/29/2019 7:51 AM PSTPat ient given his results and he states he understands. elephone Encounter - Jaelyn Bennett, Riveting Machine Operator - 03/29/2019 6:46 AM PSTNotes recorded by [...] elephone Encounter - Mel Morton Medica l Washateria Attendant - 03/28/2019 10:52 AM PSTLabs have not been resulted yet. Will contact patient o nce PCP has reviewed and resulted. elephone Encounter - Heidi Moody - 03/28/2019 10:45 AM P STPatient got blood work done yesterday and wanted to get the results. Please call him at [phone] Heidi Moody documented in this enco unter [...] | | | | | | [place] [address] | | | | | | [phone] | | | | | | | | +--------+ + + + + documented as of this encounter Visit Diagnoses Not on filedocumented in this encounter"
--- OUTSIDE RECORDS SUMMARY | ~2019-10-12 | XMS | Encounter Summary ---
Demographics + + + | Address | [address] | | | [place] [address] | + + + | Home Phone [...] | Sammi Kohler | ECON | [place] [address] | | + + + + + Care Team Providers + +------+ + | Care Crude Unit Operator Name | Role | Phone | + +------+ + | Mik Diego DO | PCP | | + +------+ + Encounter Details +--------+ + + + + | Date | Type | Department | Care Team | Description | +--------+ + + + + | 08/13/ | Orders Only | [facility] | Conversion | | | 2014 | | CENTER | Transaction, | | | | | ANTICOAGULATION | Provider Unknown | | | | | [facility] | | | | | | [address] | (Fax) | | | | | [place], [place] | | | | | | [address] | | | | | | [phone] | | | +--------+ + + + [...] encounter Progress Notes Jaelyn Chiang ARNP - 08/13/2014 11:33 AM PDTFormatting of this note might be different f rom the original. Progress Notes by CITLALY Romo at 08/13/14 1133 Author: CITLALY Romo Service: (none) Author Type: Advanced Registered Nurse Zaina ctitioner Filed: 08/13/14 1134 Encounter Date: 08/13/2014 Status: Signed Construction Project Engineer: CITLALY Romo (Advanced Registered Nurse Practitioner) S- Maintenance visit. INR check and warfarin dosing. Pt dosed warfarin as directed. No medication changes reported. No illnesses or ER visits. No increased bruising or bleeding. O- INR 3.6 A- Super Therapeutic INR P- Will decrease the dosage by 7%. Recheck INR in 2 weeks. Dosing sheet faxed to pt's marilee boykin. documented in this encounter Plan of Treatment +--------+ + + + + | Date | Type | Specialty | Care Team | Description | +--------+ + + + + | 10/16/ | Anti-coag | Anticoagulation | Brittany Zaragoza | | | 2019 | visit | | [address] | | | | | | [address] [place], | | | | | | [place] [address] | | | | | | [phone] | | | | | | | | +--------+ + + + + documented as of this encounter Procedures + +--------+ + + + | Procedure Name | Priori | Date/Time | Associated Diagnosis | Comments | | | ty | | | | + +--------+ + + + | POC INR | Routin | 08/13/2014 | | Results for this | | | e | 12:00 AM | | procedure are in the | | | | PDT | | results section. | + +--------+ + + + documented in this encounter Results POC INR (08/13/2014 12:00 AM PDT) + +-------+ + + + | Component | Value | Ref Range | Performed | Pathologist | | | | | At | Signature | + +-------+ + + + | INR | 3.6 | | EXTERNAL | | | | [...]
--- OUTSIDE RECORDS SUMMARY | ~2019-10-12 | XMS | Encounter Summary ---
Demographics + + + | Address | [address] | | | [place] [address] | + + + | Home Phone [...] + + + | Author | [facility] | | | and [place] | + + + | Organization | [facility] | | | and [place] | + + + | Address | Unknown | + + + | Phone | Unavailable | + + + Support + + + + + | Name | Relationship | Address | Phone | + + + + + | Sammi Kohler | ECON | [place] [address] | | + + + + + Care Team Providers + +------+ + | Care Cloth Doffer Name | Role | Phone | + +------+ + | Mireya Pack NP | PCP | | + +------+ + Encounter Details +--------+ + + + + | Date | Type | Department | Care Team | Description | +--------+ + + + + | 09/18/ | Orders Only | [facility] | Gamal Nolvia Paulino, | Cellulitis of right | | 2020 | | [address] | Sales Development Manager | leg | | | | [place], [place] | | | | | | [address] | | | | | | [phone] | | | +--------+ + + + [...] 2020 | visit | | [address] | | | | | | [address] [place], | | | | | | [place] [address] | | | | | | [phone] | | | | | | | | +--------+ + + + + documented as of this encounter Visit Diagnoses + + | Diagnosis | + + | Cellulitis of right leg Cellulitis and abscess of leg, except foot | + + documented in this encounter"
--- OUTSIDE RECORDS SUMMARY | ~2019-10-12 | XMS | Encounter Summary ---
Demographics + + + | Address | [address] | | | [place] [address] | + + + | Home Phone [...] + | Sammi Kohler | ECON | [place] [address] | | + + + + + Care Team Providers + +------+ + | Care Director Of Quality Improvement Name | Role | Phone | + +------+ + PCP | Unavailable | + +------+ + Encounter Details +--------+ + + + + | Date | Type | Department | Care Team | Description | +--------+ + + + + | 04/28/ | [facility] | [facility] | Edenilson Jimenez | Abdominal pain; | | 2015 | Encounter | [facility] | [phone] | Dehydration; | | | | CLINICAL DECISION | [address] | Development delay; | | | | [address] | [place] [address] | Diabetes mellitus, | | | | [place], [place] | [phone] | type 2 (HCC); GERD | | | | [address] | | without esophagitis; | | | | [phone] | | HTN (hypertension); | | | | | | Obesity, Class I, | | | | | | BMI 30-34.9; WARD | | | | | | (obstructive sleep | | | | | | apnea); RLQ | | | | | | abdominal pain; | | | | | | Nausea; | | | | | | Developmental delay; | | | | | | Diabetes (HCC); | | | | | | Obesity; Anemia; | | | | | | Anxiety and | | | | | | depression; Chronic | | | | | | back pain; CKD | | | | | | (chronic kidney | | | | | | disease) | +--------+ + + + + [...] documented as of this encounter Discharge Summaries Joe Chao MD - 04/28/2014 1:29 PM PDTFormatting of this note might be different f rom the original. Discharge Summaries by Joe Chao MD at 04/28/14 5793 Author: Joe Chao MD Service: Hospitalist Author Type: Physician Filed: 04/28/14 8069 Date of Service: 04/28/141 Status: Signed Transportation Museum Helper: Joe Chao MD (Physician) [facility] Service: Hospitalist Discharge Summary Date of Admission: 04/28/2014 Date of Discharge: 04/28/14 Discharge Provider: Joe Chao MD Treatment Team: Admitting Provider: Edenilson Jimenez MD Discharge Diagnoses: Principal Problem: RLQ abdominal pain Active Problems: Diabetes mellitus, type 2 HTN (hypertension) WARD (obstructive sleep apnea) Anxiety and depression CO2 retention Development delay COPD (chronic obstructive pulmonary disease) Chronic back pain GERD without esophagitis Obesity, Class I, BMI 30-34.9 CKD (chronic kidney disease) Dehydration Resolved Problems: * No resolved hospital problems. * Final Diagnoses: Resolved transient abd discomfort without clear explaiantion Procedures: * No surgery found * Significant Diagnostic Studies: see epic and note BRIEF HISTORY OF PRESENTATION: 04/28/14 0451 Expand All Collapse All [facility] Service: Hospitalist Admission History & Physical Date of Admission: 04/28/2014 Requesting Physician: Hauke , Emergency Department Reason for Admission: RLQ Abdominal pain. History Obtained From: patient CHIEF COMPLAINT: Abdominal pain. HISTORY OF PRESENT ILLNESS The patient is a 58 y.o. male with significant past medical history. Patient has mild to moderate developmental delay and he is a poor historian. The patient presents to ED with complaints of abdominal pain. Onset of symptoms was yesterd ay afternoon around 0330, with a constant course since that time. The symptoms are described to be of severe severity . The patient describes it as sharp pain located in RLQ. The patient also complains of nausea, vomiting (x1). Patient den ies fever, chest pain, dyspnea, and diarrhea. Care prior to arrival consisted of "medications that the nurse gave me", with no relief. Patient is a resident of [facility]. PMHx: diabetes mellitus, atrial fibrillation, hypertensi on, hyperlipidemia, anxiety, developmental delay, COPD, acute renal failure, WARD, GI bleeding. HOSPITAL COURSE: Admitted as above. I was called by nursing staff as pt had pulled out his IV reported feeling well and wanted to go home. He reports eating and having no current concerns. I a dded a lactate to his labs and it was normal. At this point given no abd pain, reportedly p er his living facility had only RLQ discomfort [employer]INU[employer]NER and no emesis etc either way all sx's res olved and no clear pathology I see no reasona to keep him in the hospital especially with hi s motivation presently to leave and go home. I will stop the naproxen and add metamusil, st op the imodium and resume other home meds with recc to f/u with pcp. Past Medical History Diagnosis Date Diabetes mellitus [...] - CHOLECYSTECTOMY; Surgeon: Jevon Vargas DO; Location: [facility] MAIN OR; Service: General; Laterality: N/A; Abdominal surgery Cholecystectomy Skin cancer excision 10/10/2012 Procedure: EXCISION - SKIN CANCER; Surgeon: Sy Fierro MD; Location: [facility] MAIN OR ; Service: Plastics; Laterality: Left; upper arm and upper back w/frozen section Esophagogastroduodenoscopy 03/03/2013 Procedure: ESOPHAGOGASTRODUODENOSCOPY; Surgeon: Howei Gibson MD; Location: [facility] ENDOSCOPY; S ervice: Gastroenterology; Laterality: N/A; Colonoscopy 03/04/2013 Procedure: COLONOSCOPY; Surgeon: Howie Gibson MD; Location: [facility] ENDOSCOPY; Service: Gastroe nterology; Laterality: N/A; Upper gastrointestinal endoscopy Skin biopsy Hernia repair 07/03/2013 Procedure: LAPAROSCOPIC - HERNIA - INCISIONAL; Surgeon: Jevon Vargas DO; Location: [facility] MAIN OR; Service: General; Laterality: N/A; Allergies Allergen Reactions Vitamin B12 Rash Prescriptions prior to admission Medication Sig Dispense Refill Albuterol Sulfate (VENTOLIN HFA IN) Inhale 2 puffs into the lungs as needed. 108 mcg/ac t Rghht-S-Pxkjyyctryukx (BEANO) TABS Take 150 Units by mouth [...] Take 1 capsule by mouth daily. (Patient ta jerri differently: Take 240 mg by mouth daily. [...] tablet Take 100 mg by mouth nightly. vorqrgjkx-kidbgagc-hjslyxplw hydroxide-simethicone Take 40 mLs by mouth daily as needed . LORazepam (ATIVAN) 1 MG tablet Take 1 [...] tablet Take 20 mg by mouth nightly. tamsulosin (FLOMAX) 0.4 MG capsule Take 0.4 mg by mouth 2 (two) times daily. Administer 30 minutes after the same meal each day. Capsules should be swallowed whole; do not crush, chew, or open tiotropium (SPIRIVA) 18 MCG inhalation capsule Inhale 18 mcg into the lungs daily. lisinopril (ZESTRIL) 40 MG tablet Take 40 mg by mouth every evening. DISCHARGE EXAM Vital Signs: BP 122/61 | Pulse 71 | Temp(Src) 98.2 F (36.8 C) (Oral) | Resp 22 | Ht 1.803 m (5' 11") | Wt 113.399 kg (250 lb) | BMI 34.88 kg/m2 | SpO2 97% Temp: [97.6 F (36.4 C)-98.9 F (37.2 C)] 98.2 F (36.8 C) (04/28 1130) BP: (122-151)/(60-79) 122/61 mmHg (04/28 1130) Heart Rate: [69-94] 71 (04/28 1130) Resp: [14-22] 22 (04/28 1130) SpO2: [93 %-98 %] 97 % (04/28 1130) Height: [178 cm (5' 10.08")-180.3 cm (5' 11")] 180.3 cm (5' 11") (04/29 643) Weight: [113.2 kg (249 lb 9 oz)-113.399 kg (250 lb)] 113.399 kg (250 lb) (04/29 643) BMI (Calculated): [34.9-35.8] 34.9 (04/29 643) Patient Vitals for the past 24 hrs: BP Temp Temp src Pulse Resp SpO2 Height Weight 04/28/141130 122/61 mmHg 98.2 F (36.8 C) Oral 71 22 97 % - - 04/28/14 0805 137/65 mmHg 98.1 F (36.7 C) Oral 79 20 96 % - - 04/28/14 0644 129/60 mmHg 98 F (36.7 C) - 69 14 94 % 1.803 m (5' 11") 113.399 kg (250 l b) 04/28/14 0540 148/63 mmHg 97.6 F (36.4 C) Oral 94 18 94 % - - 04/28/14 0435 142/64 mmHg - - 92 18 95 % - - 04/28/14 0320 142/60 mmHg 97.6 F (36.4 C) Oral 90 18 94 % - - 04/28/14 0233 132/70 mmHg - - 70 16 98 % - - 04/28/14 0210 138/72 mmHg 97.6 F (36.4 C) Oral 72 18 98 % - - 04/28/14 0139 147/70 mmHg 98.2 F (36.8 C) Oral 75 18 93 % - - 04/28/14 0037 148/71 mmHg 98.9 F (37.2 C) Oral 77 18 93 % - - 04/27/14 2300 151/79 mmHg 98.6 F (37 C) Temporal 89 16 93 % 1.78 m (5' 10.08") 113.2 kg (249 lb 9 oz) Temp (24hrs), Av.1 F (36.7 C), Min:97.6 F (36.4 C), Max:98.9 F (37.2 C) Systolic (24hrs), Av mmHg, Min:122 mmHg, Max:151 mmHg Diastolic (24hrs), Av mmHg, Min:60 mmHg, Max:79 mmHg I&O Current Shift: I&O Yesterday: I&O Last 3 Shifts: No intake or output data in the 24 hours ending 04/28/14 1333 Physical Exam Limited exam as he was admitted only a few hours ago: NAD calm conversant pleasant abd non tender even to deep palpation in all quadrants no rebound or guarding Pos BS throughout DATA Results for NORAH GR ( ) as of 04/28/2014 13:31 Ref. Range 04/28/2014 01:27 WBC Latest Range: 3.80-11.00 K/uL 10.42 RBC Latest Range: 4.20-5.70 M/uL 4.67 HGB Latest Range: 13.2-17.0 g/dL 11.8 (L) HCT Latest Range: 39.0-50.0 % 36.6 (L) MCV Latest Range: 80.0-100.0 fl 78.3 (L) MCH Latest Range: 27.0-34.0 pg 25.2 (L) MCHC Latest Range: 32.0-35.5 g/dL 32.2 RDW SD Latest Range: 37-53 fl 41.6 Platelets Latest Range: 150-400 K/uL 285 MPV No range found 7.8 DIFF TYPE No range found AUTOMATED NEUTROPHILS No range found 65.10 LYMPHOCYTES No range found 22.41 MONOCYTES No range found 8.53 EOSINOPHILS No range found 3.28 BASOPHILS No range found 0.68 NEUTROPHILS ABS Latest Range: 1.90-7.40 K/uL 6.78 LYMPHOCYTES ABS Latest Range: 1.00-3.90 K/uL 2.33 MONOCYTES ABS Latest Range: 0.00-0.80 K/uL 0.89 (H) EOSINOPHILS ABS Latest Range: 0.00-0.50 K/uL 0.34 BASOPHILS ABS Latest Range: 0.00-0.10 K/uL 0.07 SODIUM Latest Range: 135-143 mmol/L 143 POTASSIUM Latest Range: 3.5-4.9 mmol/L 3.7 CHLORIDE Latest Range: 99-109 mmol/L 107 CO2 Latest Range: 23-32 mmol/L 29 ANION GAP AGAP Latest Range: 5-20 mmol/L 10 GLUCOSE Latest Range: 65-99 mg/dL 148 (H) BUN Latest Range: 8-25 mg/dL 22 CREATININE Latest Range: 0.70-1.30 mg/dL 1.19 BUN/CREAT No range found 19 CALCIUM Latest Range: 8.5-10.5 mg/dL 8.7 TOTAL PROTEIN Latest Range: 6.3-8.2 g/dL 7.0 ALBUMIN Latest Range: 3.6-5.0 g/dL 3.1 (L) GLOBULIN Latest Range: 1.3-4.9 g/dL 3.9 TBIL Latest Range: 0.1-1.5 mg/dL 0.2 ALK PHOS Latest Range: 35-115 U/L 80 AST Latest Range: 10-45 U/L 16 ALT Latest Range: 10-65 U/L 19 EGFR Latest Range: >60 mL/min/1.73m2 >60 AMYLASE Latest Range: 25-115 U/L 32 LIPASE Latest Range: 73-393 U/L 149 A/G Latest Range: 1.0-2.4 0.8 (L) Norah Gr (CSN: [id number]) (58 y.o. M) (Adm: 04/28/14) [id number] Radiology Results (last 7 days) Procedure Component Value Units Date/Time CT Abdomen & Pelvis without contrast [[id number]] Resulted: 04/28/14345 Order Status: Completed Updated: 04/28/14348 Narrative: EXAM: CT ABDOMEN AND PELVIS (CT KUB) EXAM DATE: 04/28/2014 03:07 AM. CLINICAL HISTORY: Abdominal pain. COMPARISONS: 01/10/2014 CT Pelvis, 06/05/2013 CT abdomen and pelvis. TECHNIQUE: Routine axial helical CT imaging was performed through the abdomen and pelvis wi th oral but without IV contrast. No IV contrast secondary to reported history renal failure. Reconstructions: Coronal and sagittal. FINDINGS: Lung Bases: Normal. Noncontrast Solid Organs: Noncontrast images of the solid organs are grossly unremarkable w ith exception of a probable small right renal cyst. Gallbladder/Bile Ducts: Unremarkable post cholecystectomy. Peritoneal Cavity: No free fluid, free air or bowen adenopathy. Normal appendix. Bowel is g rossly unremarkable without evidence of obstruction or inflammation. Pelvic Organs: No bladder stones or wall thickening. Noncontrast images of the visualized p elvic organs are unremarkable. Vasculature: Unremarkable. Other: None. Impression: 1. No gross acute inflammatory or obstructive process seen in the abdomen or pelvis on this non-IV contrast study. 2. Post cholecystectomy. RADIA Electronically signed by Norah Gutierrez MD on Apr 28 2014 3:46AM Referring Provider Ara e: [phone] ID: [id number] XR chest PA and lateral [[id number]] Order Status: Sent Updated: 04/28/14328 Disposition: returning to his [employer] facilty Condition: Stable Code Status: Full Code Discharge Instructions Diet Diabetic Activity as Tolerated Call MD for: Temperature > 100.4F (38C) Call MD for: Persistant Nausea and Vomiting Call MD for: Severe Uncontrolled Pain Call MD for: Redness, Tenderness, or Signs of Infection (Pain, Swelling, Redness, Odor or Green/Yellow Discharge Around Incision Site) Call MD for: Difficulty Breathing, Headache or Visual Disturbances Call MD for: Persistant Dizziness or Light-Headedness Call MD for: Hives Call MD for: Extreme Fatigue Call MD for: Order Comments: Any distress or concenrs Nursing communication Order Comments: Please ensure patient is being discharged on his [employer] meds except stopping t he naproxen and the imodium. Also adding metamucil. Also should resumption of any BUSINESS CONTINUITY PLANNER services he had [employer] Follow up: Jerrell Gross Jean-Claudesidney, DO [address] [facility] [address] Schedule an appointment as soon as possible for a visit next available resume care with all providers you were seeingbefore admission Medication List START taking these medications psyllium 28 % packet QTY: 30 each Refills: 0 Commonly known as: METAMUCIL SMOOTH TEXTURE Take 1 packet by mouth daily. CHANGE how you take these medications diltiazem 240 MG 24 hr capsule QTY: 15 capsule Refills: 0 Commonly known as: CARDIZEM CD Take 1 capsule by mouth daily. What changed: additional instructions CONTINUE taking these medications amLODIPine [...] clonidine Refills: 0 Commonly known as: CATAPRES docusate sodium 100 MG capsule Refills: 0 Commonly known as: COLACE DULERA 100-5 MCG/ACT inhaler Refills: 0 Generic drug: mometasone-formoterol fenofibrate 160 MG tablet Refills: 0 Commonly known as: TRICOR furosemide 20 MG tablet QTY: 7 tablet Refills: 0 Commonly known as: LASIX Take 1 tablet by mouth daily. gabapentin 100 MG capsule Refills: 0 Commonly known as: NEURONTIN HYDROcodone-acetaminophen 5-325 MG per tablet Refills: 0 Commonly known as: NORCO insulin glargine 100 UNIT/ML injection QTY: 10 mL Refills: 12 Commonly known as: LANTUS Inject 82 Units into the skin nightly. lamoTRIgine 100 MG tablet Refills: 0 Commonly known as: LaMICtal dweswtmdd-mnbemfag-mkkydrvvl hydroxide-simethicone Refills: 0 lisinopril 40 MG tablet Refills: 0 Commonly known as: ZESTRIL LORazepam 1 MG tablet Refills: 0 Commonly [...] as: SPIRIVA VENTOLIN HFA IN Refills: 0 STOP taking these medications loperamide 2 MG capsule Commonly known as: IMODIUM naproxen sodium 220 MG tablet Commonly known as: ANAPROX polyethylene glycol 236 G suspension Commonly known as: Pablo SevillaTELY Where to Get Your Medications These are the prescriptions that you need to order picker. You may get the following medications from any pharmacy - psyllium 28 % packet Discharge took 20 minutes, to include final examination, discussion of admission, and prepa ration of prescriptions, instructions for on-going care, follow-up and documentation of disc harge summary. Joe Chao MD 04/28/2014 documented in this encounter Medications at Time [...] Progress Notes Conversion Transaction, Provider Unknown - 04/28/2014 2:19 PM PDTFormatting of this note m ight be different from the original. Nurse Progress Note by Joy Johnson RN at 04/28/14 5255 Author: Joy Johnson RN Service: (none) Author Type: Registered Nurse Filed: 04/28/14 1421 Date of Service: 04/28/14 1419 Status: Signed Transportation Museum Helper: Joy Johnson RN (Registered Nurse) Discharge instructions given to the patient. Advised to follow up with PCP, has katyt Saskia hayward. 1 new rx given at this time. Called [facility] and let them know patient was coming back an d was going by dial a ride. Patient escorted out via wheelchair. onver ivana Transaction, Provider Unknown - 04/28/2014 1:40 PM PDT Case Management by Elaine Garcia RN at 04/28/14 1340 Author: Elaine Garcia RN Service: (none) Author Type: Registered Nurse Filed: 04/28/14 1340 Date of Service: 04/28/14 1340 Status: Signed Transportation Museum Helper: Elaine Garcia RN (Registered Nurse) Discharge planning: CM spoke with the lead RN and/or pt's RN regarding discharge needs. P er their report, they did not identify needs and feel that the pt does not need to be seen b y CM at this time. I encouraged them to enter a CM consult as needs arise. onver ivana Transaction, Provider Unknown - 04/28/2014 12:10 PM PDT Nurse Progress Note by Taurus Mueller RN at 04/28/14 1210 Author: Taurus Mueller RN Service: (none) Author Type: Registered Nurse Filed: 04/28/14 1212 Date of Service: 04/28/140 Status: Signed Transportation Museum Helper: Taurus Mueller RN (Registered Nurse) Patient removed his IV. Spoke with patient stating I would like to start another IV. Patien t refused. Attempted to educate patient on importance of an IV and he stated he understood b ut still did not want another IV placed. Informed patient's nurse. Taurus Mueller RN inebe sAhley french, PT - 04/28/2014 10:00 AM PDTFormatting of this note might be different from t he original. Therapy Progress Note by Ashley Wright PT at 04/28/14 1000 Author: Ashley Wright PT Service: (none) Author Type: Physical Therapist Filed: 07/02/14 0947 Date of Service: 04/28/14 1000 Status: Addendum Transportation Museum Helper: Ashley Wright PT (Physical Therapist) Related Notes: Original Note by Ashley Wright PT (Physical Therapist) filed at 04/28/14 1 104 04/28/14 1000 PT Last Visit PT Received On 04/28/14 Reason for Treatment Other (comment) (abdominal pain) Requires PT Follow Up Awaiting tx order Follow up PT Only? No Focus for Next Treatment Formal Balance Assessment PT Eval/Reassessment Date 04/28/14 Assistance Required 1 person Roadway Designer Needed No Home Environment Type of Home Assisted living Additional Comments Pt has everything he would need at his assistive living facility. Prior Function Level of [place] Independent with functional mobility;Modified independent with ADLs;M odified independent with IADLs Comments Pt reports he makes his own meals and cleans his apt however he does have help if he needs it. RUE Assessment RUE Assessment WFL LUE Assessment LUE Assessment WFL RLE Assessment RLE Assessment WFL LLE Assessment LLE Assessment WFL Cognition Overall Cognitive Status WFL (Cognitive deficit) Orientation Level Oriented Sensation Light Touch No apparent deficits Safety Devices Safety Devices in Place (call light in reach ) Precautions Other Precautions slight fall risk Plan Treatment/Interventions Balance training;Gait training;Therapeutic exercise PT Frequency 5-7x/wk Care Duration (# of days) 3 # of days Recommendation Recommendations Prior Setting Equipment Recommended None PT Ready for Discharge Yes Recommendation Comments Pt a little unsteady when first standing however reports it was bec ause he just woke up. Pt also reporting he is weak from not feeling well. 04/28/14 1000 PT Last Visit PT Received On 04/28/14 Reason for Treatment Other (comment) (abdominal pain) Requires PT Follow Up Awaiting tx order Follow up PT Only? No Focus for Next Treatment Formal Balance Assessment PT Eval/Reassessment Date 04/28/14 Assistance Required [address] Designer Needed No Precautions Other Precautions slight fall risk Other Comments Comments Eval and chart review complete. Pt supine in bed and agreeable to PT. Pt performin g bed mobility independently however when standing pt slightly unsteady but can regain dayana ce on his own. Pt did use hallway wall during portions of ambulation and report he feels wea ker lately. Pt used restroom without assist, and returned to bed to go back to sleep. Cognition Overall Cognitive Status WFL (Cognitive deficit) Orientation Level Oriented Bed Mobility Rolling Modified independent Supine to Sit Modified independent Sit to Supine Modified independent Transfers Sit to/from Stand Supervision Mobility Weight Bearing Status WBAT RLE;WBAT LLE Ambulation Assistance Standby assist Maximal Ambulation Distance (feet) 150 Total Ambulation Distance (feet) 150 Distance limited by? Patient's ability Pattern Alternating;Decreased aaron;Right swing foot doesn't pass stance foot;Left swing foot doesn't pass stance foot Assistive Device None (some use of wall) Modalities Modalities Other therapy Other Therapy Pt educated on safety when mobilizing. Activity Tolerance Activity Tolerance Patient limited by fatigue;Patient limited by pain Nurse Made Aware RN notified Safety Devices Safety Devices in Place (call light in reach ) Plan Treatment/Interventions Balance training;Gait training;Therapeutic exercise PT Frequency 5-7x/wk Care Duration (# of days) 3 # of days Recommendation Recommendations Prior Setting Equipment Recommended None PT Ready for Discharge Yes Recommendation Comments Pt a little unsteady when first standing however reports it was bec ause he just woke up. Pt also reporting he is weak from not feeling well. Functional Limitation - G Codes Mobility: Walking & Moving Around: $[id number] Current Status : CI - At least 1% but less than 20% impaired, limited or restricted $[id number] Projected Goal Status : CH - 0 percent impaired, limited or restricted Rationale: Pt modified independent with all activities and reporting he is just weaker lat charisse but has been sick. onversion Trans action, Provider Unknown - 04/28/2014 8:46 AM PDT Nurse Progress Note by Joy Johnson RN at 04/28/14 2948 Author: Joy Johnson RN Service: (none) Author Type: Registered Nurse Filed: 04/28/14 3349 Date of Service: 04/28/14 0846 Status: Signed Transportation Museum Helper: Joy Johnson, RN (Registered Nurse) Nurse called from [facility] for an update on Mr. Gr. Advised her that the patie nt was admitted early this am and was not sure at this time if patient would be staying the night tonight or going home later today.I would call her and let her know once the DrSalty Saw t he patient. She stated that the patients only symptom was RLQ pain. No emesis, nausea, had b een eating all his meals fine. onver ivana Transaction, Provider Unknown - 04/28/2014 7:16 AM PDT Progress Notes by Qian Acharya RPH at 04/28/14715 Author: Qian Acharya RPH Service: (none) Author Type: Pharmacist Filed: 04/28/14715 Date of Service: 04/28/14715 Status: Signed Transportation Museum Helper: Qian Acharya RPH (Pharmacist) Renal Dosing Monitoring: Norah Emre Gr 58 y.o. male Pharmacy dosing for renal function per Dr. Jimenez Medication(s): no adjustments Plan per protocol: Medication / Dose: CrCl 85.6 ml/min Scr 1.19 mg/dL Pharmacy will continue monitoring patient for appropriate dosing per renal function. 04/28/2014 7:14 AM Pharmacist: Qian Acharya onver ivana Transaction, Provider Unknown - 04/28/2014 6:56 AM PDT Progress Notes by Qian Acharya RPH at 04/28/1456 Author: Qian Acharya RPH Service: (none) Author Type: Pharmacist Filed: 04/28/1456 Date of Service: 04/28/14655 Status: Signed Transportation Museum Helper: Qian Acharya RPH (Pharmacist) Combination may cause myopathy (atorvastatin and Fenofibrate) Qian Acharya RP docume nted in this encounter ED Notes Conversion Transaction, Provider Unknown - 04/28/2014 3:16 AM PDTFormatting of this note m ight be different from the original. ED Notes by Itzel Hussein RN at 04/28/14315 Author: Itzel Hussein RN Service: (none) Author Type: Registered Nurse Filed: 04/28/14315 Date of Service: 04/28/14315 Status: Signed Transportation Museum Helper: Itzel Hussein RN (Registered Nurse) Return from CT, will continue to monitor. Itzel Hussein RN 04/28/14315 Kristian Vinson MD - 04/28/2014 12:50 AM PDT ED Provider Notes by Kristian Mae MD at 04/28/1449 Author: Kristian Mae MD Service: Emergency Department Author Type: Physician Filed: 04/28/14 1455 Date of Service: 04/28/1449 Status: Signed Transportation Museum Helper: Kristian Mae MD (Physician) [facility] Department of Emergency Medicine 12:51 AM History of Present Illness Patient Identification Norah Gr is a 58 y.o. male. Patient information was obtained from patient. History/Exam limitations: none. Patient presented to the Emergency Department by: [facility] 1723 Chief Complaint Chief Complaint Patient presents with Abdominal Pain RLQ The patient presents to ED with complaints of abdominal pain. Onset of symptoms was yesterd ay afternoon around 0330, with a constant course since that time. The symptoms are described to be of severe severity. The patient describes the quality and location of the symptoms as the following: sharp pain located in RLQ. The patient also complains of nausea, vomiting (x 1). Patient denies fever, chest pain, dyspnea, and diarrhea. Care prior to arrival consisted of "medications that the nurse gave me", with no relief. He seems chronically cognitively impaired. Patient is a resident of [facility]. PMHx: diabetes mellitus, atrial fibrillation, hypertensi on, hyperlipidemia, anxiety, developmental delay, COPD, acute renal failure, WARD, GI bleedin g. PCP: JERRELL GUTIÉRREZ Past Medical History Diagnosis [...] - CHOLECYSTECTOMY; Surgeon: Jevon Vargas DO; Location: [facility] MAIN OR; Service: General; Laterality: N/A; Abdominal surgery Cholecystectomy Skin cancer excision 10/10/2012 Procedure: EXCISION - SKIN CANCER; Surgeon: Sy Fierro MD; Location: [facility] MAIN OR ; Service: Plastics; Laterality: Left; upper arm and upper back w/frozen section Esophagogastroduodenoscopy 03/03/2013 Procedure: ESOPHAGOGASTRODUODENOSCOPY; Surgeon: Howie Gibson MD; Location: [facility] ENDOSCOPY; S ervice: Gastroenterology; Laterality: N/A; Colonoscopy 03/04/2013 Procedure: COLONOSCOPY; Surgeon: Howie Gibson MD; Location: [facility] ENDOSCOPY; Service: Gastroe nterology; Laterality: N/A; Upper gastrointestinal endoscopy Skin biopsy Hernia repair 07/03/2013 Procedure: LAPAROSCOPIC - HERNIA - INCISIONAL; Surgeon: Jevon Vargas DO; Location: [facility] MAIN OR; Service: General; Laterality: N/A; Prior to Admission medications Medication Sig Start Date End Date Taking? Authorizing Provider Albuterol Sulfate (VENTOLIN HFA IN) Inhale 2 puffs into the lungs as needed. 108 mcg/act Historical Provider Gqlzu-T-Rmscktlvyowba (BEANO) TABS Take 150 Units by mouth [...] daily. 180 mg at hs 11/30/13 11/30/14 [facility] carlyn Mae MD docusate sodium [...] 100 mg by mouth nightly. Historical Provider jhcjlhkne-yvqtelfm-ravdwujmb hydroxide-simethicone Take 40 mLs by mouth daily [...] sore throat CV/Resp: Negative for chest pain, oaniknkjd-ih-yrbsta, cough GI: Positive for abdominal pain, nausea, vomiting (x1) Negative for diarrhea : Negative for urinary problems Musculoskeletal: Negative for back pain, joint pain Skin: Negative for rash Neuro/Psych: Negative for headache Endo/heme/Lymph: Negative for swollen lymph nodes, easy bruising All other systems reviewed and negative except as noted. Physical Exam BP 148/71 | Pulse 77 | Temp(Src) 98.9 F (37.2 C) (Oral) | Resp 18 | Ht 1.78 m (5' 1 0.08") | Wt 113.2 kg (249 lb 9 oz) | BMI 35.73 kg/m2 | SpO2 93% Vital signs interpretation: Slightly hypertensive, vitals otherwise normal. Pulse Oximetry interpretation: Normal General: Alert, awake, and oriented, in no apparent respiratory distress, however does appe ar uncomfortable secondary to abdominal pain Eyes: Normal inspection, pupils equal and round, non-icteric ENT: Atraumatic Ears normal Nose normal Pharynx normal Mucous membranes somewhat dry Neck: Normal inspection, normal ROM with no apparent pain No lymphadenopathy Cardiovascular: Rate and rhythm normal Distant heart tones No murmurs, no bruit or gallop Good distal pulses and good cap refill Chest: Non tender, good excursion Respiratory: Breath sounds normal bilaterally Distant breath sounds No rales, wheezing or rhonchi No accessory muscle use Abdomen: Grossly obese, numerous areas of ecchymosis on abdominal wall from insulin injecti ons, no evidence of cellulitis Tenderness through entire RLQ, no rebound or guarding Normal active bowel sounds No organomegaly : External genitalia normal appearing Back: Normal inspection, good ROM Extremities: 3-4+ pitting edema BLE, good peripheral pulses, brisk capillary refill, good R OM without pain Skin: Color normal Warm and dry No rash Neuro: Alert, no AMS No motor deficit No sensory deficit Medical Decision Making and Emergency Department Course ED Department Course 12:50 AM. Patient presents to ED with complaints of abdominal pain. On exam, the patient kelley s RLQ tenderness to palpation. My DDx includes, but is not limited to: appendicitis, diverti culitis, constipation, abdominal wall strain, kidney stone. Will order CBC with differential , comprehensive metabolic panel, amylase, lipase, 12-lead EKG, chest x-ray, urine screen, CT Abdomen/Pelvis with contrast, and reevaluate the patient. Patient is stable at this time. He appears cognitively unable to towel distributor his own condition accurately though he is appropriate and quite responsive. 2:52 AM. Reviewed labs. Mild anemia noted on CBC, slight elevation in CRP, labs otherwise u nremarkable. 4:13 AM. Patient recheck. Patient resting comfortably. Repeat examination of abdomen reveal s continued RLQ tenderness. I discussed plans for admission with the patient, patient is agr eeable. 4:40 AM. Discussed case with Dr. Jimenez, hospitalist, accepts admission and will see patient in ED. Medical decision making: I cannot completely rule out the possibility he may have an early appendicitis or other acute intra-abdominal process. His absence of white count or left lico ft would speak against this. Sugar is only mildly elevated. He does not have an elevated w simon blood cell count. I am uncomfortable with the prospect of some impacted [facility] at this point in time when on repeat exam he still seems significantly tender. I th ink it most appropriate to admit him for observation for his abdominal pain for right now an d should his pain worsen Dr. Jimenez can consult with the surgeon for their opinion. ED Medication Administration from 04/27/2014 5019 to 04/28/2014 7042 Date/Time Order Dose Route Action Action by 04/28/2014 0214 sodium chloride (PF) 0.9 % flush 10 mL 10 mL Intravenous Given Itzel portillo RN 04/28/2014 021 ondansetron (ZOFRAN) injection 8 mg 8 mg Intravenous Given Itzel Hussein RN 04/28/2014 022 sodium chloride (bolus) 0.9 % 500 mL 0 mL Intravenous Stopped Itzel lopez RN 04/28/2014 021 sodium chloride (bolus) 0.9 % 500 mL 500 mL Intravenous New Bag Itzel peralta RN 04/28/2014 021 sodium chloride 0.9 % infusion Intravenous New Bag Itzel Hussein RN 04/28/2014 0306 diatrizoate meglumine-sodium (GASTROGRAFIN) 66-10 % solution 30 mL 30 mL Oral Given Juan Goodson, RT 04/28/2014 0307 diatrizoate meglumine-sodium (GASTROGRAFIN) 66-10 % solution 60 mL 60 mL Rectal Given Juan Goodson, RT Filed Vitals: 04/28/14 0540 04/28/14 0644 04/28/14 0805 04/28/14 1131 BP: 148/63 129/60 137/65 122/61 Pulse: 94 69 79 71 Temp: 97.6 F (36.4 C) 98 F (36.7 C) 98.1 F (36.7 C) 98.2 F (36.8 C) TempSrc: Oral Oral Oral Resp: 18 14 20 22 Height: 1.803 m (5' 11") Weight: 113.399 kg (250 lb) SpO2: 94% 94% 96% 97% Records Reviewed Old medical records. Nursing notes. Prior ED visits for similar and unrelated complaints. Laboratory Evaluation Results Procedure Component Value Ref Range Date/Time C-reactive protein [[id number]] (Abnormal) Collected: 04/28/14126 Order Status: Completed Updated: 04/28/14403 CRP 1.0 (H) <0.5 mg/dL Comprehensive metabolic panel [[id number]] (Abnormal) Collected: 04/28/14126 Order Status: Completed Updated: 04/28/14248 Specimen Information: Blood SODIUM 143 135 - 143 mmol/L POTASSIUM 3.7 3.5 - 4.9 mmol/L CHLORIDE 107 99 - 109 mmol/L CO2 29 23 - 32 mmol/L ANION GAP AGAP 10 5 - 20 mmol/L GLUCOSE 148 (H) 65 - 99 mg/dL BUN 22 8 - 25 mg/dL CREATININE 1.19 0.70 - 1.30 mg/dL BUN/CREAT 19 CALCIUM 8.7 8.5 - 10.5 mg/dL TOTAL PROTEIN 7.0 6.3 - 8.2 g/dL Albumin 3.1 (L) 3.6 - 5.0 g/dL GLOBULIN 3.9 1.3 - 4.9 g/dL A/G 0.8 (L) 1.0 - 2.4 TBIL 0.2 0.1 - 1.5 mg/dL ALK PHOS 80 35 - 115 U/L AST 16 10 - 45 U/L ALT 19 10 - 65 U/L EGFR >60 >60 mL/min/1.73m2 Lipase [[id number]] Collected: 04/28/14126 Order Status: Completed Updated: 04/28/14248 Specimen Information: Blood LIPASE 149 73 - 393 U/L Amylase [[id number]] Collected: 04/28/14126 Order Status: Completed Updated: 04/28/14248 Specimen Information: Blood AMYLASE 32 25 - 115 U/L CBC W/Auto Diff (Reflex to Manual) [[id number]] (Abnormal) Collected: 04/28/14126 Order Status: Completed Updated: 04/28/14239 Specimen Information: Blood WBC 10.42 3.80 - 11.00 K/uL RBC 4.67 4.20 - 5.70 M/uL HGB 11.8 (L) 13.2 - 17.0 g/dL HCT 36.6 (L) 39.0 - 50.0 % MCV 78.3 (L) 80.0 - 100.0 fl MCH 25.2 (L) 27.0 - 34.0 pg MCHC 32.2 32.0 - 35.5 g/dL RDW SD 41.6 37 - 53 fl PLT 285 150 - 400 K/uL MPV 7.8 fl DIFF TYPE AUTOMATED NEUTROPHILS 65.10 % LYMPHOCYTES 22.41 % MONOCYTES 8.53 % EOSINOPHILS 3.28 % BASOPHILS 0.68 % NEUTROPHILS ABS 6.78 1.90 - 7.40 K/uL LYMPHOCYTES ABS 2.33 1.00 - 3.90 K/uL MONOCYTES ABS 0.89 (H) 0.00 - 0.80 K/uL EOSINOPHILS ABS 0.34 0.00 - 0.50 K/uL BASOPHILS ABS 0.07 0.00 - 0.10 K/uL POC clinitek 10 [[id number]] (Abnormal) Collected: 04/28/14129 Order Status: Completed Updated: 04/28/14132 Color, UA YELLOW Clarity, UA CLEAR Glucose, UA NEGATIVE NEGATIVE mg/dL Bilirubin, UA NEGATIVE NEGATIVE Ketones, UA NEGATIVE NEGATIVE mg/dL Spec Grav, UA 1.020 1.001 - 1.035 Blood, UA NEGATIVE NEGATIVE pH, UA 7.0 4.6 - 8.0 Protein, UA NEGATIVE NEGATIVE mg/dL Urobilinogen, UA 1.0 <1.1 mg/dL Nitrite, UA NEGATIVE NEGATIVE WBC, UA TRACE (A) NEGATIVE I personally reviewed the lab results and they have been posted to the chart. Pertinent po sitive and negative findings have been addressed appropriately. Radiology and EKG Evaluation Imaging Results XR chest PA and lateral (Final result) Result time: 04/28/14 13:47:43 Final result by Rad Results In Richard (04/28/14 13:47:43) Impression: 1. No acute findings. 2. Mild thoracic spondylosis. Narrative: [facility] XR CHEST 2 VIEW FRONTAL AND LATERAL 04/28/2014 3:29 AM History: 58 years. Male. Acute dyspnea, presenting to the emergency room. Technique: AP and lateral views of the chest. Comparison: 04/09/14. Findings: No lung consolidation or pleural effusion visualized. The bronchovascular marking s are normal. The cardiac volume is normal for the AP view. The pulmonary vasculature is normal. The pulm onary veena and mediastinal contours are normal. Mild osteophytes are noted in the thoracic s pine. CT Abdomen & Pelvis without contrast (Final result) Result time: 04/28/14 03:46:56 Preliminary result by Rad Results In Richard (04/28/14 03:46:56) Impression: 1. No gross acute inflammatory or obstructive process seen in the abdomen or pelvis on this non-IV contrast study. 2. Post cholecystectomy. RADIA Read by Norah Gutierrez MD on Apr 28 2014 3:46AM Final result by Rad Results In Richard (04/28/14 03:46:50) Impression: 1. No gross acute inflammatory or obstructive process seen in the abdomen or pelvis on this non-IV contrast study. 2. Post cholecystectomy. RADIA Electronically signed by Norah Gutierrez MD on Apr 28 2014 3:46AM Referring Provider Ara bonilla: [phone] ID: [id number] Narrative: EXAM: CT ABDOMEN AND PELVIS (CT KUB) EXAM DATE: 04/28/2014 03:07 AM. CLINICAL HISTORY: Abdominal pain. COMPARISONS: 01/10/2014 CT Pelvis, 06/05/2013 CT abdomen and pelvis. TECHNIQUE: Routine axial helical CT imaging was performed through the abdomen and pelvis wi th oral but without IV contrast. No IV contrast secondary to reported history renal failure. Reconstructions: Coronal and sagittal. FINDINGS: Lung Bases: Normal. Noncontrast Solid Organs: Noncontrast images of the solid organs are grossly unremarkable w ith exception of a probable small right renal cyst. Gallbladder/Bile Ducts: Unremarkable post cholecystectomy. Peritoneal Cavity: No free fluid, free air or bowen adenopathy. Normal appendix. Bowel is g rossly unremarkable without evidence of obstruction or inflammation. Pelvic Organs: No bladder stones or wall thickening. Noncontrast images of the visualized p elvic organs are unremarkable. Vasculature: Unremarkable. Other: None. EKG Interpretation Time: 0109. Rate: 72. Normal sinus rhythm. Intervals normal. Linn normal. Non-specific T-wa ve flattening in III, ST-T wave segments otherwise normal. No evidence of acute ischemia. In dependently viewed by me and interpreted contemporaneously by me: Kristian Mae MD. ED Diagnoses Final diagnoses Abdominal pain Associated Orders DIET DIABETIC UP TOLERATED DISCHARGE INSTRUCTIONS DISCHARGE INSTRUCTIONS DISCHARGE INSTRUCTIONS DISCHARGE INSTRUCTIONS DISCHARGE INSTRUCTIONS DISCHARGE INSTRUCTIONS DISCHARGE INSTRUCTIONS DISCHARGE INSTRUCTIONS DISCHARGE INSTRUCTIONS NURSING COMMUNICATION Nausea Developmental delay Diabetes Obesity Anemia Disposition: ED Disposition Admit/Observation Bed request special needs: None Diagnosis?: Abdominal pain persistent, nausea, chronic cognitive impairment, diabetes, obesity Procedures Additional Documentation Procedures Attending Note: Documentation assistance provided by Justine Snyder (Scribe). Information recorded by the scribe has been reviewed and validated by me. I ag qian with its contents. MD Kristian Silverman MD 04/28/14 1455 documented in t his encounter Miscellaneous Notes Plan of Care - Conversion Transaction, Provider Unknown - 04/28/2014 8:46 AM PDT Plan of Care by Joy Johnson RN at 04/28/14845 Author: Joy Johnson RN Service: (none) Author Type: Registered Nurse Filed: 04/28/14845 Date of Service: 04/28/14845 Status: Signed Transportation Museum Helper: Joy Johnson RN (Registered Nurse) Problem: Pain Goal: Patient s pain/discomfort is manageable Assess and monitor patient s pain using appropriate pain scale. Collaborate with interdis ciplinary team and initiate plan and interventions as ordered. Re-assess patient s pain le tracy approximately 1-2 hours after pain management intervention. Premedicate as needed. Outcome: Progressing Patient denies pain at this time, will continue to monitor. Problem: Safety Goal: Patient will be injury [...] policy, and non-skid footwear provided. Outcome: Progressing Arm band on, call light within reach, bed side table within reach, bed in lowest position, wheels locked, rails up 2/4, non skid socks on. Problem: Daily Care Goal: Daily care needs are met Assess and monitor ability to perform self care and identify potential discharge needs. Outcome: Progressing Patient needs minimal assist. Lives at a assisted living facility. Problem: Psychosocial Needs Goal: Demonstrates ability to cope with hospitalization/illness Assess and monitor patients ability to cope with his/her illness. Outcome: Progressing Patient shows positive coping behavior. Problem: Discharge Barriers Goal: Patient s discharge needs are met Collaborate with interdisciplinary team and initiate plans and interventions as needed. Outcome: Progressing No discharge barriers at this time. Comments: Joy Johnson RN, 04/28/2014 8:46 AM docume nted in this encounter Plan of [...] [place], | | | | | | [place] [address] | | | | | | [phone] | | | | | | | | +--------+ + + + + documented as of this encounter Procedures + +--------+ + + + | Procedure Name | Priori | Date/Time | Associated Diagnosis | Comments | | | ty | | | | + +--------+ + + + | POC GLUCOSE | Routin | 04/28/2014 | | Results for this | | | e | 11:29 AM | | procedure are in the | | | | PDT | | results section. | + +--------+ + + + | LACTIC ACID | Routin | 04/28/2014 | | Results for this | | | e | 10:26 AM | | procedure are in the | | | | PDT | | results section. | + +--------+ + + + | POC GLUCOSE | Routin | 04/28/2014 | | Results for this | | | e | 9:12 AM | | procedure are in the | | | | PDT | | results section. | + +--------+ + + + | XR CHEST 2 VIEWS | Routin | 04/28/2014 | | Results for this | | | e | 3:29 AM | | procedure are in the | | | | PDT | | results section. | + +--------+ + + + | CT ABDOMEN PELVIS WO | Routin | 04/28/2014 | | Results for this | | CONTRAST | e | 3:05 AM | | procedure are in the | | | | PDT | | results section. | + +--------+ + + + | EXTERNAL LAB: CBC | Routin | 04/28/2014 | | Results for this | | | e | 1:27 AM | | procedure are in the | | | | PDT | | results section. | + +--------+ + + + | C-REACTIVE PROTEIN | Routin | 04/28/2014 | | Results for this | | | e | 1:27 AM | | procedure are in the | | | | PDT | | results section. | + +--------+ + + + | LIPASE | Routin | 04/28/2014 | | Results for this | | | e | 1:27 AM | | procedure are in the | | | | PDT | | results section. | + +--------+ + + + | AMYLASE | Routin | 04/28/2014 | | Results for this | | | e | 1:27 AM | | procedure are in the | | | | PDT | | results section. | + +--------+ + + + | COMPREHENSIVE | Routin | 04/28/2014 | | Results for this | | METABOLIC PANEL | e | 1:27 AM | | procedure are in the | | | | PDT | | results section. | + +--------+ + + + | ECG 12 LEAD | Routin | 04/28/2014 | | Results for this | | | e | 1:09 AM | | procedure are in the | | | | PDT | | results section. | + +--------+ + + + documented in this encounter Results POC Glucose (04/28/2014 11:29 AM PDT) + + + + + + | Component | Value | Ref Range | Performed | Pathologist | | | | | At | Signature | + + + + + + | Glucose, | 172 (H)Comment: Testing | 65 - 99 mg/dL | EXTERNAL | | | Fingerstick | performed at [facility];[address] | | LAB | | | | [address];[place], [place] | | | | | | [address] | | | | + + + + + + + + | Specimen | + + | | + + + +---------+ + + | Performing | Address | City/State/Zipcode | Phone Number | | Organization | | | | + +---------+ + + | EXTERNAL LAB | | | | + +---------+ + + Lactic Acid (04/28/2014 10:26 AM PDT) + + + + + + | Component | Value | Ref Range | Performed | Pathologist | | | | | At | Signature | + + + + + + | Lactate | 0.8Comment: Testing | 0.4 - 2.0 | EXTERNAL | | | | performed at [facility];[address] | mmol/L | LAB | | | | [address];[place] | | | | | | [address] | | | | + + + + + + + + | Specimen | + + | Blood specimen | | (specimen) | + + + +---------+ + + | Performing | Address | City/State/Zipcode | Phone Number | | Organization | | | | + +---------+ + + | EXTERNAL LAB | | | | + +---------+ + + POC Glucose (04/28/2014 9:12 AM PDT) + + + + + + | Component | Value | Ref Range | Performed | Pathologist | | | | | At | Signature | + + + + + + | Glucose, | 160 (H)Comment: Testing | 65 - 99 mg/dL | EXTERNAL | | | Fingerstick | performed at [facility];[address] | | LAB | | | | [address];[place], [place] | | | | | | [address] | | | | + + + + + + + + | Specimen | + + | | + + + +---------+ + + | Performing | Address | City/State/Zipcode | Phone Number | | Organization | | | | + +---------+ + + | EXTERNAL LAB | | | | + +---------+ + + XR Chest 2 Vws (04/28/2014 3:29 AM PDT) + + | Specimen | + + | | + + + + + | Impressions | Performed At | + + + | 1. No acute findings. 2. Mild thoracic spondylosis. | | | | | + + + + + + | Narrative | Performed At | + + + | [facility] CHEST 2 VIEW FRONTAL AND LATERAL 04/28/2014 3:29 | | | AM History: 58 years. Male. Acute dyspnea, presenting to the | | | emergency room. Technique: AP and lateral views of the chest. | | | Comparison: 04/09/14. Findings: No lung consolidation or pleural | | | effusion visualized. The bronchovascular markings are normal. The | | | cardiac volume is normal for the AP view. The pulmonary vasculature | | | is normal. The pulmonary veena and mediastinal contours are normal. | | | Mild osteophytes are noted in the thoracic spine. | | + + + + ------+ | Procedure Note | + ------+ | Richard, Rad Conversion - 09/20/2018 10:29 PM PDT [facility] GRMAKEN[facility] CHEST 2 VIEW FRONTAL | | AND LATERAL04/28/2014 3:29 AM History: 58 years. Male. Acute dyspnea, presenting to | | the emergency room. Technique: AP and lateral views of the chest.Comparison: 04/09/14. | | Findings: No lung consolidation or pleural effusion visualized. The bronchovascular | | markings are normal. The cardiac volume is normal for the AP view. The pulmonary | | vasculature is normal. The pulmonary veena and mediastinal contours are normal. Mild | | osteophytes are noted in the thoracic spine. IMPRESSION: 1. No acute findings.2. Mild | | thoracic spondylosis. | | PM | |Findings: No lung consolidation or pleural effusion visualized. The bronchovascular marking s are normal. | | | |The cardiac volume is normal for the AP view. The pulmonary vasculature is normal. The pulm onary veena and mediastinal contours are normal. Mild osteophytes are noted in the thoracic s pine. | | | |IMPRESSION: | |1. No acute findings. | |2. Mild thoracic spondylosis. | | | | | | | + ------+ CT Abdomen Pelvis wo Contrast (04/28/2014 3:05 AM PDT) + + | Specimen | + + | | + + + + + | Impressions | Performed At | + + + | 1. No gross acute inflammatory or obstructive process seen in the | | | abdomen or pelvis on this non-IV contrast study. 2. Post | | | cholecystectomy. RADIA Electronically signed by Norah Terrazas | Mk Gutierrez MD on Apr 28 2014 3:46AM Referring Provider Line: | | | [phone] ID: [id number] | | + + + + + + | Narrative | Performed At | + + + | EXAM: CT ABDOMEN AND PELVIS (CT KUB) EXAM DATE: 04/28/2014 03:07 | | | AM. CLINICAL HISTORY: Abdominal pain. COMPARISONS: 01/10/2014 | | | CT Pelvis, 06/05/2013 CT abdomen and pelvis. TECHNIQUE: Routine | | | axial helical CT imaging was performed through the abdomen and pelvis | | | with oral but without IV contrast. No IV contrast secondary to | | | reported history renal failure. Reconstructions: Coronal and sagittal. | | | FINDINGS: Lung Bases: Normal. Noncontrast Solid Organs: | | | Noncontrast images of the solid organs are grossly unremarkable with | | | exception of a probable small right renal cyst. Gallbladder/Bile | | | Ducts: Unremarkable post cholecystectomy. Peritoneal Cavity: No | | | free fluid, free air or bowen adenopathy. Normal appendix. Bowel is | | | grossly unremarkable without evidence of obstruction or inflammation. | | | Pelvic Organs: No bladder stones or wall thickening. Noncontrast | | | images of the visualized pelvic organs are unremarkable. | | | Vasculature: Unremarkable. Other: None. | | + + + + + | Procedure Note | + + | Joaquin Ramos Conversion - 09/20/2018 10:29 PM PDT EXAM:CT ABDOMEN AND PELVIS (CT KUB) | | EXAM DATE: 04/28/2014 03:07 AM. CLINICAL HISTORY: Abdominal pain. COMPARISONS: 01/10/2014 | | CT Pelvis, 06/05/2013 CT abdomen and pelvis. TECHNIQUE: Routine axial helical CT imaging | | was performed through the abdomen and pelvis with oral but without IV contrast. No IV | | contrast secondary to reported history renal failure. Reconstructions: Coronal and | | sagittal. FINDINGS:Lung Bases: Normal. Noncontrast Solid Organs: Noncontrast images of | | the solid organs are grossly unremarkable with exception of a probable small right renal | | cyst. Gallbladder/Bile Ducts: Unremarkable post cholecystectomy. Peritoneal Cavity: No | | free fluid, free air or bowen adenopathy. Normal appendix. Bowel is grossly unremarkable | | without evidence of obstruction or inflammation. Pelvic Organs: No bladder stones or | | wall thickening. Noncontrast images of the visualized pelvic organs are unremarkable. | | Vasculature: Unremarkable. Other: None. IMPRESSION: 1. No gross acute inflammatory or | | obstructive process seen in the abdomen or pelvis on this non-IV contrast study.2. Post | | cholecystectomy. RADIA Electronically signed by Norah Gutierrez MD on Apr 28 2014 | | 3:46AM Referring Provider Line: [phone] ID: [id number] | | | |Gallbladder/Bile Ducts: Unremarkable post cholecystectomy. | | | |Peritoneal Cavity: No free fluid, free air or bowen adenopathy. Normal appendix. Bowel is g rossly unremarkable without evidence of obstruction or inflammation. | | | |Pelvic Organs: No bladder stones or wall thickening. Noncontrast images of the visualized p elvic organs are unremarkable. | | | |Vasculature: Unremarkable. | | | |Other: None. | | | |IMPRESSION: | | | |1. No gross acute inflammatory or obstructive process seen in the abdomen or pelvis on this non-IV contrast study. | |2. Post cholecystectomy. | | | | | |RADIA | | | | Electronically signed by Norah Gutierrez MD on Apr 28 2014 3:46AM Referring Provider Ara e: [phone] ID: [id number] | + + External Lab: CBC (04/28/2014 1:27 AM PDT) + + + + + + | Component | Value | Ref Range | Performed | Pathologist | | | | | At | Signature | + + + + + + | WBC | 10.42Comment: Testing | 3.80 - 11.00 | EXTERNAL | | | | performed at [facility];888 | K/uL | LAB | | | | Breanna Jenkins;[place] | | | | | | [address] | | | | + + + + + + | Non- | 4.67Comment: Testing | 4.20 - 5.70 | EXTERNAL | | | Red Blood | performed at [facility];888 | M/uL | LAB | | | Cells | Breanna [address];[place] | | | | | Counted | [address] | | | | + + + + + + | Hemoglobin | 11.8 (L)Comment: Testing | 13.2 - 17.0 | EXTERNAL | | | | performed at [facility];888 | g/dL | LAB | | | | [address];[place] | | | | | | [address] | | | | + + + + + + | Hematocrit, | 36.6 (L)Comment: Testing | 39.0 - 50.0 % | EXTERNAL | | | POC | performed at [facility];888 | | LAB | | | | [address];[place] | | | | | | [address] | | | | + + + + + + | MCV | 78.3 (L)Comment: Testing | 80.0 - 100.0 fl | EXTERNAL | | | | performed at [facility];888 | | LAB | | | | [address];[place] | | | | | | [address] | | | | + + + + + + | MCH | 25.2 (L)Comment: Testing | 27.0 - 34.0 pg | EXTERNAL | | | | performed at [facility];888 | | LAB | | | | [address];[place] | | | | | | [address] | | | | + + + + + + | MCHC | 32.2Comment: Testing | 32.0 - 35.5 | EXTERNAL | | | | performed at [facility];888 | g/dL | LAB | | | | [address];[place] | | | | | | [address] | | | | + + + + + + | RDW-CV | 41.6Comment: Testing | 37 - 53 fl | EXTERNAL | | | | performed at [facility];888 | | LAB | | | | [address];[place] | | | | | | [address] | | | | + + + + + + | Platelet | 285Comment: Testing | 150 - 400 K/uL | EXTERNAL | | | Count | performed at [facility];888 | | LAB | | | Plasma | [address];[place] | | | | | | [address] | | | | + + + + + + | MPV | 7.8Comment: Testing | fl | EXTERNAL | | | | performed at [facility];888 | | LAB | | | | [address];[place] | | | | | | [address] | | | | + + + + + + | Differentia | AUTOMATEDComment: | | EXTERNAL | | | l Type | Testing performed at | | LAB | | | | [facility];[address];[place] [address] | | | | + + + + + + | % Segmented | 65.10Comment: Testing | % | EXTERNAL | | | | performed at [facility];888 | | LAB | | | Neutrophils | [address];[place] | | | | | | [address] | | | | + + + + + + | % | 22.41Comment: Testing | % | EXTERNAL | | | Lymphocytes | performed at [facility];888 | | LAB | | | | [address];[place] | | | | | | [address] | | | | + + + + + + | % Monocytes | 8.53Comment: Testing | % | EXTERNAL | | | | performed at [facility];888 | | LAB | | | | [address];[place] | | | | | | [address] | | | | + + + + + + | % | 3.28Comment: Testing | % | EXTERNAL | | | Eosinophils | performed at [facility];888 | | LAB | | | | [address];[place] | | | | | | [address] | | | | + + + + + + | % Basophils | 0.68Comment: Testing | % | EXTERNAL | | | | performed at [facility];888 | | LAB | | | | [address];[place] | | | | | | [address] | | | | + + + + + + | Absolute | 6.78Comment: Testing | 1.90 - 7.40 | EXTERNAL | | | Segmented | performed at [facility];888 | K/uL | LAB | | | Neutrophils | [address];[place] | | | | | | [address] | | | | + + + + + + | Absolute | 2.33Comment: Testing | 1.00 - 3.90 | EXTERNAL | | | Lymphocytes | performed at [facility];888 | K/uL | LAB | | | | [address];[place] | | | | | | [address] | | | | + + + + + + | Absolute | 0.89 (H)Comment: Testing | 0.00 - 0.80 | EXTERNAL | | | Monocytes | performed at [facility];888 | K/uL | LAB | | | | [address];[place] | | | | | | [address] | | | | + + + + + + | Absolute | 0.34Comment: Testing | 0.00 - 0.50 | EXTERNAL | | | Eosinophils | performed at [facility];888 | K/uL | LAB | | | | [address];[place] | | | | | | [address] | | | | + + + + + + | Absolute | 0.07Comment: Testing | 0.00 - 0.10 | EXTERNAL | | | Basophils | performed at [facility];888 | K/uL | LAB | | | | [address];[place] | | | | | | [address] | | | | + + + + + + + + | Specimen | + + | Blood specimen | | (specimen) | + + + +---------+ + + | Performing | Address | City/State/Zipcode | Phone Number | | Organization | | | | + +---------+ + + | EXTERNAL LAB | | | | + +---------+ + + C-Reactive Protein (04/28/2014 1:27 AM PDT) + + + + + + | Component | Value | Ref Range | Performed | Pathologist | | | | | At | Signature | + + + + + + | CRP | 1.0 (H)Comment: Testing | mg/dL | EXTERNAL | | | | performed at [facility];8 | | LAB | | | | [address] [facility];[place], [place] | | | | | | [address] | | | | + + + + + + + + | Specimen | + + | | + + + +---------+ + + | Performing | Address | City/State/Zipcode | Phone Number | | Organization | | | | + +---------+ + + | EXTERNAL LAB | | | | + +---------+ + + Lipase (04/28/2014 1:27 AM PDT) + + + + + + | Component | Value | Ref Range | Performed | Pathologist | | | | | At | Signature | + + + + + + | Lipase | 149Comment: Testing | 73 - 393 U/L | EXTERNAL | | | | performed at [facility];888 | | LAB | | | | [address];[place] | | | | | | [address] | | | | + + + + + + + + | Specimen | + + | Blood specimen | | (specimen) | + + + +---------+ + + | Performing | Address | City/State/Zipcode | Phone Number | | Organization | | | | + +---------+ + + | EXTERNAL LAB | | | | + +---------+ + + Amylase (04/28/2014 1:27 AM PDT) + + + + + + | Component | Value | Ref Range | Performed | Pathologist | | | | | At | Signature | + + + + + + | Amylase | 32Comment: Testing | 25 - 115 U/L | EXTERNAL | | | | performed at [facility];888 | | LAB | | | | [address];[place], [place] | | | | | | [address] | | | | + + + [...] + +---------+ + + Comprehensive Metabolic Panel (04/28/2014 1:27 AM PDT) + + + + + + | Component | Value | Ref Range | Performed | Pathologist | | | | | At | Signature | + + + + + + | Na | 143Comment: Testing | 135 - 143 | EXTERNAL | | | | performed at [facility];888 | mmol/L | LAB | | | | [address];[place] | | | | | | [address] | | | | + + + + + + | K | 3.7Comment: Testing | 3.5 - 4.9 | EXTERNAL | | | | performed at [facility];888 | mmol/L | LAB | | | | [address];[place] | | | | | | [address] | | | | + + + + + + | Cl | 107Comment: Testing | 99 - 109 mmol/L | EXTERNAL | | | | performed at [facility];[address] | | LAB | | | | [address];[place] | | | | | | [address] | | | | + + + + + + | CO2 | 29Comment: Testing | 23 - 32 mmol/L | EXTERNAL | | | | performed at [facility];[address] | | LAB | | | | [address];[place] | | | | | | [address] | | | | + + + + + + | Anion Gap | 10Comment: Testing | 5 - 20 mmol/L | EXTERNAL | | | | performed at [facility];[address] | | LAB | | | | [address];[place] | | | | | | [address] | | | | + + + + + + | Glucose, | 148 (H)Comment: Testing | 65 - 99 mg/dL | EXTERNAL | | | Fasting | performed at [facility];[address] | | LAB | | | | [address];[place] | | | | | | [address] | | | | + + + + + + | BUN | 22Comment: Testing | 8 - 25 mg/dL | EXTERNAL | | | | performed at [facility];888 | | LAB | | | | [address];[place] | | | | | | [address] | | | | + + + + + + | Creatinine | 1.19Comment: Testing | 0.70 - 1.30 | EXTERNAL | | | | performed at [facility];888 | mg/dL | LAB | | | | [address];[place] | | | | | | [address] | | | | + + + + + + | BUN/Creatin | 19Comment: Testing | | EXTERNAL | | | ine Ratio | performed at [facility];[address] | | LAB | | | | [address];[place] | | | | | | [address] | | | | + + + + + + | Calcium | 8.7Comment: Testing | 8.5 - 10.5 | EXTERNAL | | | | performed at [facility];888 | mg/dL | LAB | | | | [address];[place] | | | | | | [address] | | | | + + + + + + | Protein, | 7.0Comment: Testing | 6.3 - 8.2 g/dL | EXTERNAL | | | Total | performed at [facility];[address] | | LAB | | | | [address];[place] | | | | | | [address] | | | | + + + + + + | Albumin | 3.1 (L)Comment: Testing | 3.6 - 5.0 g/dL | EXTERNAL | | | | performed at [facility];[address] | | LAB | | | | [address];[place] | | | | | | [address] | | | | + + + + + + | Globulin | 3.9Comment: Testing | 1.3 - 4.9 g/dL | EXTERNAL | | | | performed at [facility];[address] | | LAB | | | | [address];[place] | | | | | | [address] | | | | + + + + + + | A/G Ratio | 0.8 (L)Comment: Testing | 1.0 - 2.4 | EXTERNAL | | | | performed at [facility];[address] | | LAB | | | | [address];[place] | | | | | | [address] | | | | + + + + + + | Bilirubin | 0.2Comment: Testing | 0.1 - 1.5 mg/dL | EXTERNAL | | | Total | performed at [facility];[address] | | LAB | | | | [address];[place] | | | | | | [address] | | | | + + + + + + | ALP, | 80Comment: Testing | 35 - 115 U/L | EXTERNAL | | | External | performed at [facility];[address] | | LAB | | | | [address];[place] | | | | | | [address] | | | | + + + + + + | AST | 16Comment: Testing | 10 - 45 U/L | EXTERNAL | | | | performed at [facility];[address] | | LAB | | | | [address];[place] | | | | | | [address] | | | | + + + + + + | ALT | 19Comment: Testing | 10 - 65 U/L | EXTERNAL | | | | performed at [facility];[address] | | LAB | | | | [address];[place] | | | | | | [address] [...] | | | | | | at [facility];[address];[place] [address] | | | | + + + [...] + +---------+ + + ECG 12 lead (04/28/2014 1:09 AM PDT) + + + + + [...] | | | | | ECG of 09-APR-2014 | | | | | | 00:00,Premature atrial | | | | | | complexes are no longer | | | | | | PresentQT has | | | | | [...] (500), | | | | | | editorial cartoonist ZAYNAB HUNT | | | | | | (4) on 04/28/2014 7:15:52 | | | | | | AM | | | | + + + + + + + + | Specimen | + + | | + + + + + | Narrative | Performed At | + + + | Historically converted procedure from [facility] environment | EXTERNAL LAB | + [...] pain, unspecified site | + + | Dehydration | + + | Development delay Unspecified delay in development | + + | Diabetes mellitus, type 2 (HCC) Type II or unspecified type diabetes mellitus without | | mention of complication, not stated as uncontrolled | + + | GERD without esophagitis Esophageal reflux | + + | HTN (hypertension) Unspecified essential hypertension | + + | Obesity, Class I, BMI 30-34.9 Obesity, unspecified | + + | WARD (obstructive sleep apnea) Obstructive sleep apnea (adult) (pediatric) | + + | RLQ abdominal pain Abdominal pain, right lower quadrant | + + | Nausea Nausea alone | + + | Developmental delay Unspecified delay in development | + + | Diabetes (HCC) | + + | Obesity Obesity, unspecified | + + | Anemia Anemia, unspecified | + + | Anxiety and depression Dysthymic disorder | + + | Chronic back pain Backache, unspecified | + + | CKD (chronic kidney disease) Chronic kidney disease, unspecified | + + documented in this encounter
--- OUTSIDE RECORDS SUMMARY | ~2019-10-12 | XMS | Encounter Summary ---
Demographics + + + | Address | [address] | | | [place] [address] | + + + | Home Phone [...] + | Sammi Kohler | ECON | [place] [address] | | + + + + + Care Team Providers + +------+ + | Care Optical Brightener Maker Helper Name | Role | Phone | [...] + + | 01/25/ | Emergency | [facility] | Breanne Hurtado, | Acute intractable | | 2019 | | MEDICAL CENTER | DO [address] | headache, | | | | EMERGENCY CENTER | [place] [address] | unspecified headache | | | | [address] | [phone] | type (Primary Dx) | | | | [place], [place] | | | | | | [address] | | | | | | [phone] | | | +--------+ + + + [...] sent through Care Everywhere.Headaches, Self -Care for (Danish)documented in this encounter Medications at Time of [...] Licona DO - 01/25/2019 7:13 AM PST [facility] Department of Emergency Medicine 01/25/2019 7:13 AM [...] of GE junction Hypercholesterolemia 07/08/2013 Hyperlipidemia Hypertension manager terminal (current) use of 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 Obesity, Class I, BMI 30-34.9 07/08/2013 WARD (obstructive sleep apnea) 08/11/2012 does not use CPAP because of the noise Other chronic pain Renal failure Stroke (HCC) TIA (transient ischemic attack) Unspecified visual disturbance reading glasses Past Surgical History: Procedure Laterality Date ABDOMEN SURGERY CHOLECYSTECTOMY CHOLECYSTECTOMY, LAPAROSCOPIC 09/12/2012 Procedure: LAPAROSCOPIC - CHOLECYSTECTOMY; Surgeon: Jevon Vargas DO; Location: [facility] MAIN OR; Service: General; Laterality: N/A; COLONOSCOPY COLONOSCOPY 03/04/2013 Procedure: COLONOSCOPY; Surgeon: Howie Gibson MD; Location: [facility] ENDOSCOPY; Service: Gastroen terology; Laterality: N/A; HERNIA REPAIR 07/03/2013 Procedure: LAPAROSCOPIC - HERNIA - INCISIONAL; Surgeon: Jevon Vargas DO; Location: [facility] MAIN OR; Service: General; Laterality: N/A; KNEE SURGERY rt knee, patella LEG SURGERY LLE OTHER SURGICAL HISTORY UNLISTED PROCEDURE ARTHROSCOPY OTHER SURGICAL HISTORY Left 05/05/2014 SKIN LESION EXCISION - Procedure: EXCISION - LESION - FROZEN SECTION; Surgeon: Sy murcia MD; Location: [facility] MAIN OR; Service: Plastics; Laterality: Left; forearm SKIN BIOPSY SKIN CANCER EXCISION Left 10/10/2012 Procedure: EXCISION - SKIN CANCER; Surgeon: Sy Fierro MD; Location: [facility] MAIN OR; Service: Plastics; Laterality: Left; upper arm and upper back w/frozen section UPPER GASTROINTESTINAL ENDOSCOPY UPPER GASTROINTESTINAL ENDOSCOPY 03/03/2013 Procedure: ESOPHAGOGASTRODUODENOSCOPY; Surgeon: Howie Gibson MD; Location: [facility] ENDOSCOPY; rvice: Gastroenterology; Laterality: N/A; Prior to [...] file Gets together: Not on file Attends jehovah's witness service: Not on file Active member of [...] Lives alone x 1 wk, moved from [facility], , 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 [...] CV/Resp: Negative for chest pain Negative for yrsovwxwz-ld-gwqcsy Negative for cough GI: Negative for abdominal [...] IVPB 1,000 mg (0 mg Intravenous Stopped 01/25/19934) sodium chloride 0.9% (NS) bolus 1,000 mL (0 mLs Intravenous Stopped 01/25/1916) ketorolac (TORADOL) injection 15 mg (15 mg Intravenous Given 12/20/19 0915) insulin regular (humuLIN R, novoLIN R) injection [...] [facility] We discussed the emergent signs and symptoms [...] available (Using the electronic record system of [facility], with regard to the past medical/surgical history, previous medications, and all ergies). Laboratory Evaluation Results Procedure Component Value Ref Range Date/Time Protime INR [[id number]] Collected: 01/25/19740 Order Status: Completed Specimen: Blood Updated: 01/25/19811 INR 1.0 PTT [[id number]] Collected: 01/25/19740 Order Status: Completed Specimen: Blood Updated: 01/25/19811 PTT 27 23 - 32 seconds Comprehensive Metabolic Panel [[id number]] (Abnormal) Collected: 01/25/19740 Order Status: Completed Specimen: [...] GFR >60 >60 mL/min/1.73m2 CBC with Differential [[id number]] (Abnormal) Collected: 01/25/19 0741 Order Status: Completed Specimen: Blood Updated: 01/25/19751 WBC 9.45 3.80 - 11.00 K/uL RBC [...] No acute intracranial process. Signed by: Irina Ji Richard Sign Date/Time: 01/25/2019 8:16 AM Narrative: CT [...] - Primary Care Contact information: [address] [address] [facility]. Specialty: Emergency Medicine Why: As needed, If symptoms worsen Contact information: [address] [facility] [id number] Discharge Medication List as of 01/25/2019 9:35 AM Attending Provider Note: IBreanne DO personally performed the services described in this documentation, as scribed by Evette Merchant in my presence, and it is both accurate and c omplete. Chart Reviewed and Completed. Scribe: Kari Harris, scribing for and in the presence of Breanne Hurtado DO. Completed by: Kari Casillas 01/25/2019 1:58 PM This chart has in part been created using [employer] Speech Recognition software. The c abbott has been reviewed and there may still exist sound alike word errors. Breanne Hurtado DO Procedures Breanne Hurtado DO 01/25/19 [address], RN - 01/25/2019 7:07 AM PSTPatient complaining that he hasn't been seen by the doctor yet. Justino prabhakar acknowledged and told that is seeing another patient and would be [...] | | | | | [place], | | | | | | [place] [address] | | | | | | [phone] | | | | | | | [...] | | n - | | | 01/25/ | | | 2018 | | | 6:54 | | | [...] | | | 06:53? | | | SIMÓN, | | | NORAH | | | | | | M?MRN: | | | | | | [id number] | | | [id number] | | | riteri | | | [...] | | | [place] | | | [employer] | | | al | | | [...] | | [facility] | | | [place] | | | [place] | | | [...] | | | Absolute | performed at [facility];[address] | K/uL | LABORATORY | | | | [address];[place] | | | | | | [address] | | | | + + + + + + + + | Specimen | + + | Blood | + + + + + + + | Performing | Address | City/State/Zipcode | Phone Number | | Organization | | | | + + + + + | [facility] | [address] | [place] [address] | [phone] | + + + + + Comprehensive [...] 18 | 10 - 65 U/L | [facility] | | | | | | [...] | | | | | | MDRD [facility] traceable | | | | | | equation.Testing | | | | | | performed at [facility];[address] | | | | | | [facility];[place], [place] | | | | | | [address] | | | | + + + + + + + + | Specimen | + + | Blood | + + + + + + + | Performing | Address | City/State/Zipcode | Phone Number | | Organization | | | | + + + + + | [facility] | [address] | [place] [address] | [phone] | + + + + + PTT (01/25/2019 7:41 AM PST) + + + + + + | Component | Value | Ref Range | Performed | Pathologist | | | | | At | Signature | + + + + + + | PTT | 27Comment: Testing | 23 - 32 seconds | LUIS ALBERTO | | | | performed at [facility];[address] | | LABORATORY | | | | [address];[place] | | | | | | [address] | | | | + + + + + + + + | Specimen | + + | Blood | + + + + + + + | Performing | Address | City/State/Zipcode | Phone Number | | Organization | | | | + + + + + | [facility] | [address] | [place] [address] | [phone] | + + + + + Protime [...] | performed at [facility] | | | | | | [address] [facility];[place], [place] | | | | | | [address] | | | | + + + + + + + + | Specimen | + + | Blood | + + + + + + + | Performing | Address | City/State/Zipcode | Phone Number | | Organization | | | | + + + + + | [facility] | [address] | [place] [address] | [phone] | + + + + + documented [...]
--- OUTSIDE RECORDS SUMMARY | ~2019-10-12 | XMS | Encounter Summary ---
Demographics + + + | Address | [address] | | | [place] [address] | + + + | Home Phone [...] + | Sammi Kohler | ECON | [place] [address] | | + + + + + Care Team Providers + +------+ + | Care Ticket Machine Operator Name | Role | Phone | + +------+ + PCP | Unavailable | + +------+ + Encounter Details +--------+ + + + + | Date | Type | Department | Care Team | Description | +--------+ + + + + | 07/13/ | Hospital | [facility] | Elizabeth Ochoa, | Chest pain at rest; | | 2015 - | Encounter | MEDICAL [facility]ENTER | MD [address] | Acute chest pain; | | | | CLINICAL DECISION | [place] [address] | Chronic back pain; | | 07/14/ | | [address] | [phone] | COPD (chronic | | 2015 | | [place], [place] | | obstructive | | | | [address] | | pulmonary disease) | | | | [phone] | | ([facility]); Hypoxia; Long | | | | | | term (current) use | | | | | | of 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; | | | | | | WARD (obstructive | | | | | | sleep apnea); | | | | | | Paroxysmal a-fib | | | | | | ([facility]) | +--------+ + + + + Social [...] 1407 Date of Service: 07/14/14914 Status: Signed Market News Reporter: Agustín Box MD (Physician) [facility] Service: Hospitalist Physician Discharge Summary Pt: Norah Gr AGE/SEX: 58 y.o. male ROOM: [facility]1114-1 PCP: EDIN GUTIÉRREZ : 1955 Admit date: [...] Class I, BMI 30-34.9 Paroxysmal a-fib (HCC) history department chair (current) use of 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 Resolved Problems: Hypoxia [...] his INR was 2.4. [facility] home and he kelley [...] tablet Refills: 0 Commonly known as: LaMICtal drcfizrcf-ktdxvaeu-khchxjyho hydroxide-simethicone Refills: 0 lisinopril 40 MG tablet [...] Box MD 07/14/2014 9:15 AM Dictation software, Checkr, used which may contain error for similar [...] Progress Note by Katerine Washington RN at 07/14/14 3663 Author: Katerine Washington RN Service: (none) Author Type: Registered Nurse Filed: 07/14/14 1510 Date of Service: 07/14/141508 Status: Signed Market News Reporter: Katerine Washington RN (Registered Nurse) Pt discharged. IV removed. Instructions given and pt states understanding. No c/o at this time. Discharged home via Dial a Ride onver ivana Transaction, Provider Unknown - 07/14/2014 2:39 PM PDT Case Management by Elaine Garcia RN at 07/14/14 5744 Author: Elaine Garcia RN Service: (none) Author Type: Registered Nurse Filed: 07/14/14 1439 Date of Service: 07/14/14 1439 Status: Signed Market News Reporter: Elaine Garcia RN (Registered Nurse) Discharge planning: [...] Progress Notes by Katerine Washington RN at 07/14/148 Author: Katerine Washington RN Service: (none) Author Type: Registered Nurse Filed: 07/14/14 1239 Date of Service: 07/14/141237 Status: Signed Market News Reporter: Katerine Washington RN (Registered Nurse) Nrsg. Note: Pt back from stress test onver ivana Transaction, Provider Unknown - 07/14/2014 9:32 AM PDT Nurse Progress Note by Kenya Belle RN at 07/14/14931 Author: Kenya Belle RN Service: (none) Author Type: Registered Nurse Filed: 07/14/1432 Date of Service: 07/14/14931 Status: Signed Market News Reporter: Kenya Belle RN (Registered Nurse) Visited patient for coumadin education. They have been taking Coumadin prior to this hospit alization and [facility] manages their dosing. Instructed to follow up for INR kylee ck within 3 days after discharge. Questions answered. Coumadin education booklet provided to reinforce Coumadin education. onver ivana Transaction, Provider Unknown - 07/14/2014 4:28 AM PDT Nurse Progress Note by Lynne Elizabeth RN at 07/14/14 0428 Author: Lynne Elizabeth RN Service: (none) Author Type: Registered Nurse Filed: 07/14/14428 Date of Service: 07/14/14427 Status: Signed Market News Reporter: Lynne Elizabeth, RN (Registered Nurse) Received call [...] 07/14/14331 Date of Service: 07/14/14331 Status: Signed Market News Reporter: Pepe Xie RPH (Pharmacist) Note ccl 79.2ml/min meds reviewed Pharmacy will follow rdc 0332 onver ivana Transaction, Provider Unknown - 07/13/2014 7:33 PM PDT Case Management by QUINN Richardson at 07/13/141932 Author: QUINN Richardson Service: (none) Author Type: Coroner Forensic Technician Filed: 07/13/141934 Date of Service: 07/13/141932 Status: Addendum Market News Reporter: QUINN Richardson (Coroner Forensic Technician) Related Notes: Original Note by QUINN Richardson (Coroner Forensic Technician) filed at 07/13/141934 COLTON ALERT: ED VISIT COUNT (1 YR) IS 43 Care Recommendation: The following guidelines were formulated by the ED Care Guidelines Committee of the [facility] Consistent Care Program on May 21, 2013. No controlled substances should be administered in the ED or prescribed from the ED for sub jective pain. Medical/Surgical History: Primary Care Provider (PCP) is CRUZITO GUTIÉRREZ DO at [phone] . Notify PCP if giving any additional narcotics for objective findings. PCP supports enrollment in the [facility] Program. Medical History: 1. Diabetes-He is on a sliding scale after meals, routine insulin before meals and takes La ntus at night. A1C April, = 7.9%. He was referred to an carroter in February, 4. 2. Chest Pain- Coronary [...] the GE junction (requiring managem ent in [place] at ), rectal ulcer and internal hemorrhoids. 10. Hernia- He has been referred to Dr. Vargas. Mental Health: He has depression and anxiety- This is managed by his PCP. He takes Paxil and abilify. He has been referred to [facility] in February. According to [facility], he never establish ed care. Patient has now been scheduled twice and cancels at the last minute. Social History: Mr. Gr lives independently at [facility]. He may require another level of care give n the number of ED visits at enrollment (22 in the last year)-please contact his [facility] Case Judit to (Fermin [place]) to discuss. Norah is developmentally delayed- Patient may benefit from having someone with him at his lylaor's appointments. He has applied for Dial-A-Ride services (April,) Applied for a Health Home for this client through [facility]- please review Provider One to determ ine if one has been assigned. Problem List: He needs to make regular visits to see his PCP in light of his chronic conditions. This patient is developmentally delayed and has multiple chronic conditions and providers. He would benefit from having a Floral Designer assist him in coordinating his care. There is an alternate plan in place for Norah- He may take a taxi (paid for my ACCP) to the Urgent Care Clinic ([facility] on [address]) for evaluation instead of the ED. The have been provided his pertinent medical records. Norah and the [facility] are aware of this plan. Pain/Opioid Agreement: He does not have a diagnosis of chronic pain. Please see HARDWARE MANAGER for prescribing history. Social History or Identified Risk: - Fall Risk - Non adherence - Transportation Issues Additional Information: This patient is case managed by the [facility] Care Program. Please contact the senior actuarial analyst at your hospital for any immediate or post ED discharge needs this patient may have. Please contact Tari at [facility] at when patient pr esents to [...] 0604 Date of Service: 07/14/14124 Status: Signed Market News Reporter: Elizabeth Ochoa MD (Physician) [facility] Service: Hospitalist Admission History & Physical [...] his INR was 2.4. He moved from [facility] to a home and he has [...] that was no tasia while in the orthodox at rest around 12:30 p.m. It was [...] GERD, stable. Denies fever, chills, cough, aspiration. Jayla moscoso then drove him to the ED for [...] is on oxygen, 2 L nasal cannula /. COPD is stable. Denies any cough, pleuritic chest pain, hemoptysis, or wheezing. CARDIOVASCULAR: No previous history of AL or congestive heart failure. Has known history [...] Depression Renal failure ARF (acute renal failure) ([facility]) 03/02/2013 COPD (chronic obstructive pulmonary disease) ([facility]) 03/02/2013 hypoxemia on 2 lts nc Development [...] pain Stroke (HCC) TIA (transient ischemic attack) history department chair (current) use of 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 Past Surgical History Procedure Laterality Date Unlisted procedure arthroscopy Knee surgery rt knee, patella Leg surgery LLE Colonoscopy Cholecystectomy, laparoscopic 09/12/2012 Procedure: LAPAROSCOPIC - CHOLECYSTECTOMY; Surgeon: Jevon Vargas DO; Location: [facility] MAIN OR; Service: General; Laterality: N/A; Abdominal surgery Cholecystectomy Skin cancer excision 10/10/2012 Procedure: EXCISION - SKIN CANCER; Surgeon: Sy Fierro MD; Location: [facility] MA[facility] OR ; Service: Plastics; Laterality: Left; upper arm and upper back w/frozen section Esophagogastroduodenoscopy 03/03/2013 Procedure: ESOPHAGOGASTRODUODENOSCOPY; Surgeon: Howie Gibson MD; Location: [facility] ENDOSCOPY; S ervice: Gastroenterology; Laterality: N/A; Colonoscopy 03/04/2013 Procedure: COLONOSCOPY; Surgeon: Howie Gibson MD; Location: [facility] ENDOSCOPY; Service: Gastroe nterology; Laterality: N/A; Upper gastrointestinal endoscopy Skin biopsy Hernia repair 07/03/2013 Procedure: LAPAROSCOPIC - HERNIA - INCISIONAL; Surgeon: Jevon Vargas DO; Location: [facility] MAIN OR; Service: General; Laterality: N/A; Skin lesion excision Left 05/05/2014 Procedure: EXCISION - LESION - FROZEN SECTION; Surgeon: Sy Fierro MD; Location: [facility] MA[facility] OR; Service: Plastics; Laterality: Left; forearm Allergies Allergen Reactions Vitamin B12 Rash Prior to Admission medications Medication Sig Start Date End Date Taking? Authorizing Provider Albuterol Sulfate (VENTOLIN HFA IN) Inhale 2 puffs into the lungs as needed. 108 mcg/act Historical Provider Tfmuj-N-Yrypxkaxfhdel (BEANO) TABS Take 150 Units by mouth [...] 100 mg by mouth nightly. Historical Provider lmlzsreoq-wbpjznqu-hjqxlkbrr hydroxide-simethicone Take 40 mLs by mouth daily [...] Number of Children: 1 Years of Education: [employer]. [employer] Occupational History disabled Social History Main Topics [...] hypertension. 4. Bubble study was not done. Steno Typist: KVW Authenticated by: Marcelino Edgar MD Report [...] I, BMI 30-34.9 Dehydration Paroxysmal a-fib (HCC) history department chair (current) use of 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 ASSESSMENT & PLAN [...] Advanced Registered Nurse Bj calvillo Filed: 07/14/14 120 Date of Service: 07/14/14 120 Status: Signed Market News Reporter: CITLALY Alamo (Mary Registered Nurse Ricky) Pre-procedure Diagnoses: 1. Acute chest pain [786.50] Post-procedure Diagnoses: 1. Acute chest pain [786.50] Procedures: 1. NM MYOCARDIAL PERFUSION SPECT - STRESS AND REST [TXT013 (Custom)] [facility] Service: Diagnostic Imaging/Nuclear Medicine Cardiac Stress Test [...] 07/14/14226 Date of Service: 07/14/14225 Status: Signed Market News Reporter: John Philippe RN (Registered Nurse) Lab called [...] 07/14/14132 Date of Service: 07/14/14132 Status: Signed Market News Reporter: John Philippe RN (Registered Nurse) Pt repositioned, blankets applied to back for comfort. John Philippe RN 06/08/15 0133 onver ivana Transaction, Provider Unknown - 07/13/2014 11:55 PM PDT ED Notes by John Philippe RN at 07/13/142354 Author: John Philippe RN Service: Emergency Department Author Type: Registered Nurse Filed: 07/14/142357 Date of Service: 07/13/142354 Status: Signed Market News Reporter: John Philippe RN (Registered Nurse) chase Lerner [...] 07/13/142353 Date of Service: 07/13/142353 Status: Signed Market News Reporter: John Philippe RN (Registered Nurse) Pt assisted [...] 07/13/142342 Date of Service: 07/13/142341 Status: Addendum Market News Reporter: John Philippe RN (Registered Nurse) Related Notes: [...] 07/13/142339 Date of Service: 07/13/142338 Status: Signed Market News Reporter: John Philippe RN (Registered Nurse) Pt given turkey sandwich and water, approved by Ana Philippe RN 07/13/142339 onver ivana Transaction, Provider Unknown - 07/13/2014 10:50 PM PDT ED Notes by John Philippe RN at 07/13/142249 Author: John Philippe RN Service: Emergency Department Author Type: Registered Nurse Filed: 07/13/142308 Date of Service: 07/13/142249 Status: Signed Market News Reporter: John Philippe RN (Registered Nurse) Ana Barrios informed of pt's abd pain and request for pain meds. John Philippe RN 07/13/142308 onver ivana Transaction, Provider Unknown - 07/13/2014 10:45 PM PDT ED Notes by John Philippe RN at 07/13/142244 Author: John Philippe RN Service: Emergency Department Author Type: Registered Nurse Filed: 07/13/142244 Date of Service: 07/13/142244 Status: Signed Market News Reporter: John Philippe RN (Registered Nurse) Pt c/o pain and requesting pain medication for his abd cramps. John Philippe RN 07/13/142244 onver ivana Transaction, Provider Unknown - 07/13/2014 10:15 PM PDT ED Notes by John Philippe RN at 07/13/142214 Author: John Philippe RN Service: Emergency Department Author Type: Registered Nurse Filed: 07/13/142224 Date of Service: 07/13/142214 Status: Signed Market News Reporter: John Philippe RN (Registered Nurse) Pt returned from XR, placed back on monitor. John Philippe RN 07/13/142224 onver ivana Transaction, Provider Unknown - 07/13/2014 9:58 PM PDT ED Notes by John Philippe RN at 07/13/142157 Author: John Philippe RN Service: Emergency Department Author Type: Registered Nurse Filed: 07/13/142158 Date of Service: 07/13/142157 Status: Signed Market News Reporter: John Philippe RN (Registered Nurse) Pt declines third dose of subL NTG at this time, he states he does not like the taste. John Philippe RN 07/13/142158 onver ivana Transaction, Provider Unknown - 07/13/2014 9:54 PM PDT ED Notes by John Philippe RN at 07/13/142153 Author: John Philippe RN Service: Emergency Department Author Type: Registered Nurse Filed: 07/13/142156 Date of Service: 07/13/142153 Status: Signed Market News Reporter: John Philippe RN (Registered Nurse) Nitroglycerin SL tablet 0.4 mg given. Dose: 0.4 mg Route: subL Comment: pt with persistent CP to substernal area, 04/15 unchanged after 1st dose. Second dose given per admin instructions, by Ana Philippe RN 07/13/142156 onver ivana Transaction, Provider Unknown - 07/13/2014 9:49 PM PDT ED Notes by John Philippe RN at 07/13/142148 Author: John Philippe RN Service: Emergency Department Author Type: Registered Nurse Filed: 07/13/142201 Date of Service: 07/13/142148 Status: Signed Market News Reporter: John Philippe RN (Registered Nurse) Pt informed [...] PA-C Service: Emergency Department Author Type: Physician Manager Field Services - Certified Filed: 07/14/14 2435 Date of Service: 07/13/142053 Status: Attested Market News Reporter: Ana Victoria PA-C (Physician Manager Field Services - Certified) Cosigner: Yesica Flowers DO at 07/15/141833 Attestation signed by Yesica Flowers DO at 07/15/141833 I agree with the evaluation and management, I have read the note. We have discussed the nicholas e. Procedures [facility] Department of Emergency Medicine HPI History [...] tightness occurred as he was sitting in orthodox at 11am to day. Chest pain radiated to his throat and right side of his neck. He felt nauseated and latisha rt of breath. Patient's cardiac risk factors include: HTN DM Care prior to arrival consisted of tao kofi Living on his own for one week - used to reside at [facility], but he wanted t o be on [...] (HCC) 03/02/2013 COPD (chronic obstructive pulmonary disease) ([facility]) 03/02/2013 hypoxemia on 2 lts nc Development [...] pain Stroke (HCC) TIA (transient ischemic attack) history department chair (current) use of 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 Past Surgical History Procedure Laterality Date Unlisted procedure arthroscopy Knee surgery rt knee, patella Leg surgery LLE Colonoscopy Cholecystectomy, laparoscopic 09/12/2012 Procedure: LAPAROSCOPIC - CHOLECYSTECTOMY; Surgeon: Jevon Vargas DO; Location: [facility] MAIN OR; Service: General; Laterality: N/A; Abdominal surgery Cholecystectomy Skin cancer excision 10/10/2012 Procedure: EXCISION - SKIN CANCER; Surgeon: Sy Fierro MD; Location: [facility] MAIN OR ; Service: Plastics; Laterality: Left; upper arm and upper back w/frozen section Esophagogastroduodenoscopy 03/03/2013 Procedure: ESOPHAGOGASTRODUODENOSCOPY; Surgeon: Howie Gibson MD; Location: [facility] ENDOSCOPY; S ervice: Gastroenterology; Laterality: N/A; Colonoscopy 03/04/2013 Procedure: COLONOSCOPY; Surgeon: Howie Gibson MD; Location: [facility] ENDOSCOPY; Service: Gastroe nterology; Laterality: N/A; Upper gastrointestinal endoscopy Skin biopsy Hernia repair 07/03/2013 Procedure: LAPAROSCOPIC - HERNIA - INCISIONAL; Surgeon: Jevon Vargas DO; Location: [facility] MAIN OR; Service: General; Laterality: N/A; Skin lesion excision Left 05/05/2014 Procedure: EXCISION - LESION - FROZEN SECTION; Surgeon: Sy Fierro MD; Location: [facility] MA[facility] OR; Service: Plastics; Laterality: Left; forearm Prior to Admission medications Medication Sig Start Date End Date Taking? Authorizing Provider Albuterol Sulfate (VENTOLIN HFA IN) Inhale 2 puffs into the lungs as needed. 108 mcg/act Historical Provider Rnmjl-Q-Udvjlmmuhqavm (BEANO) TABS Take 150 Units by mouth [...] 100 mg by mouth nightly. Historical Provider josiqufpt-yffiwmqk-hqbmgjcoj hydroxide-simethicone Take 40 mLs by mouth daily [...] 2149 to xray. 2214 Returns from xray 2302 stomach cramps 04/15 abd remains soft, BP [...] Value Ref Range Date/Time POC clinitek 10 [[id number]] (Abnormal) Collected: 07/13/142352 Order Status: Completed Updated: [...] NEGATIVE WBC, UA NEGATIVE NEGATIVE Cardiac Panel [[id number]] (Abnormal) Collected: 07/13/142025 Order Status: Completed Updated: [...] ng/mL CK-MB Index 1.6 POC cardiac troponin [[id number]] Collected: 07/13/142032 Order Status: Completed Updated: 07/13/142047 [...] Diagnosis?: chest pain Ana Victoria PA-C 07/14/14 0317 Yesica Flowers DO 07/15/14 1834 onversion Transacti on, Provider Unknown - 07/13/2014 8:06 PM PDTFormatting of this note might be different fro m the original. ED Notes by John Philippe RN at 07/13/142005 Author: John Philippe RN Service: Emergency Department Author Type: Registered Nurse Filed: 07/13/142005 Date of Service: 07/13/142005 Status: Signed Market News Reporter: John Philippe RN (Registered Nurse) Pt now states that he has palpitations and has h/o afib. Denies SOB John Philippe RN 07/13/142005 onver ivana Transaction, Provider Unknown - 07/13/2014 8:03 PM PDT ED Notes by John Philippe RN at 07/13/142002 Author: John Philippe RN Service: Emergency Department Author Type: Registered Nurse Filed: 07/13/142003 Date of Service: 07/13/142002 Status: Signed Market News Reporter: John Philippe RN (Registered Nurse) Pt c/o [...] 07/13/142039 Date of Service: 07/13/14834 Status: Signed Market News Reporter: John Philippe RN (Registered Nurse) Dr. Flowers [...] 07/14/14325 Date of Service: 07/14/14325 Status: Signed Market News Reporter: Lynne Elizabeth RN (Registered Nurse) Problem: Pain [...] | | | | | [address] [place], | | | | | | [place] [address] | | | | | | [phone] | | | | | | | [...] + + + | NORAH GR 1955 [place] MYOCARDIAL PERFUSION SPECT - STRESS | | [...] Richard, Rad Conversion - 09/20/2018 10:29 PM SHALONDA GR1955KS MYOCARDIAL | | PERFUSION SPECT - STRESS [...] | | | Fingerstick | performed at [facility];[address] | | LAB | | | | [facility];[place], [place] | | | | | | [address] | | | | + + + [...] EXTERNAL | | | | performed at [facility];[address] | | LAB | | | | [address];[place], [place] | | | | | | [address] | | | | + + + [...] | | | | | | ACUTE AL Testing | | | | | | performed at [facility];[address] | | | | | | [address] [facility];[place], [place] | | | | | | [address] | | | | + + + [...] EXTERNAL | | | | performed at [facility];[address] | | LAB | | | | [address];[place], [place] | | | | | | [address] [...] | | | Fingerstick | performed at [facility];[address] | | LAB | | | [address];[place], [place] | | | | | | [address] | | | | + + + [...] + + | Historically converted [facility] from [facility] Epic environment | EXTERNAL LAB [...] | | | Fingerstick | performed at [facility];[address] | | LAB | | | | [address];[place], [place] | | | | | | [address] | | | | + + + [...] EXTERNAL | | | | performed at [facility];[address] | | LAB | | | | [address];[place] | | | | | | [address] | | | | + + + [...] | | | | | | ACUTE AL Testing | | | | | | performed at [facility];[address] | | | | | | [facility];[place], [place] | | | | | | [address] | | | | + + + [...] | | | | | | [address];[place], [place] | | | | | | [address] | | | | + + + [...] | | | | | | [address];[place], [place] | | | | | | [address] | | | | + + + + + + + + | Specimen | + + | | + + + +---------+ + + | Performing | Address | City/State/Zipcode | Phone Number | | Organization | | | | + +---------+ + + | EXTERNAL LAB | | | | + +---------+ + + External Lab: CBC (07/14/2014 4:21 AM PDT) + + + + + + | Component | Value | Ref Range | Performed | Pathologist | | | | | At | Signature | + + + + + + | WBC | 9.38Comment: Testing | 3.80 - 11.00 | EXTERNAL | | | | performed at [facility], [address] | K/uL | LAB | | | | [address], | | | | | | [place] [address] | | | | + + + + + + | Non- | 4.89Comment: Testing | 4.20 - 5.70 | EXTERNAL | | | Red Blood | performed at [facility], [address] | M/uL | LAB | | | Cells | [facility], | | | | | Counted | [place] [address] | | | | + + + + + + | Hemoglobin | 12.1 (L)Comment: Testing | 13.2 - 17.0 | EXTERNAL | | | | performed at [facility], [address] | g/dL | LAB | | | | [address], | | | | | | [place] [address] | | | | + + + + + + | Hematocrit, | 38.2 (L)Comment: Testing | 39.0 - 50.0 % | EXTERNAL | | | POC | performed at [facility], [address] | | LAB | | | | [address], | | | | | | [place] [address] | | | | + + + + + + | MCV | 78.0 (L)Comment: Testing | 80.0 - 100.0 fl | EXTERNAL | | | | performed at [facility], [address] | | LAB | | | | [address], | | | | | | [place] [address] | | | | + + + + + + | MCH | 24.7 (L)Comment: Testing | 27.0 - 34.0 pg | EXTERNAL | | | | performed at [facility], [address] | | LAB | | | | [address], | | | | | | [place] [address] | | | | + + + + + + | MCHC | 31.7 (L)Comment: Testing | 32.0 - 35.5 | EXTERNAL | | | | performed at [facility], [address] | g/dL | LAB | | | | [address], | | | | | | [place] [address] | | | | + + + + + + | RDW-CV | 46.8Comment: Testing | 37 - 53 fl | EXTERNAL | | | | performed at [facility], [address] | | LAB | | | [address], | | | | | | [place] [address] | | | | + + + + + + | Platelet | 260Comment: Testing | 150 - 400 K/uL | EXTERNAL | | | Count | performed at [facility], [address] | | LAB | | | Plasma | [address], | | | | | | [place] [address] | | | | + + + + + + | MPV | 7.7Comment: Testing | fl | EXTERNAL | | | | performed at [facility], [address] | | LAB | | | | [address], | | | | | | [place] [address] | | | | + + + + + + | Differentia | AUTOMATEDComment: | | EXTERNAL | | | l Type | Testing performed at | | LAB | | | | [facility], [address] | | | | | | [place] | | | | | | [address] | | | | + + + + + + | % Segmented | 53.40Comment: Testing | % | EXTERNAL | | | | performed at [facility], [address] | | LAB | | | Neutrophils | rid[address] Maher, | | | | | | [place] [address] | | | | + + + + + + | % | 30.34Comment: Testing | % | EXTERNAL | | | Lymphocytes | performed at [facility], [address] | | LAB | | | | [address], | | | | | | [place] [address] | | | | + + + + + + | % Monocytes | 11.30Comment: Testing | % | EXTERNAL | | | | performed at [facility], [address] | | LAB | | | | [address], | | | | | | [place] [address] | | | | + + + + + + | % | 4.20Comment: Testing | % | EXTERNAL | | | Eosinophils | performed at [facility], [address] | | LAB | | | | [address], | | | | | | [place] [address] | | | | + + + + + + | % Basophils | 0.76Comment: Testing | % | EXTERNAL | | | | performed at [facility], [address] | | LAB | | | | [address], | | | | | | [place] [address] | | | | + + + + + + | Absolute | 5.01Comment: Testing | 1.90 - 7.40 | EXTERNAL | | | Segmented | performed at [facility], [address] | K/uL | LAB | | | Neutrophils | [address], | | | | | | [place] [address] | | | | + + + + + + | Absolute | 2.85Comment: Testing | 1.00 - 3.90 | EXTERNAL | | | Lymphocytes | performed at [facility], [address] | K/uL | LAB | | | | [address], | | | | | | [place] [address] | | | | + + + + + + | Absolute | 1.06 (H)Comment: Testing | 0.00 - 0.80 | EXTERNAL | | | Monocytes | performed at [facility], [address] | [address] | LAB | | | | [address], | | | | | | [place] [address] | | | | + + + + + + | Absolute | 0.39Comment: Testing | 0.00 - 0.50 | EXTERNAL | | | Eosinophils | performed at [facility], [address] | K/[address] | LAB | | | | [address], | | | | | | [place] [address] | | | | + + + + + + | Absolute | 0.07Comment: Testing | 0.00 - 0.10 | EXTERNAL | | | Basophils | performed at [facility], [address] | K/[address] | LAB | | | | [address], | | | | | | [place] [address] | | | | + + + + + + | RBC | 2+Comment: HYPONORMAL | | EXTERNAL | | | Morphology | PLT MORPHTesting | | LAB | | | | performed at [facility], [address] | | | | | | eva Maher, | | | | | | [place] [address] | | | | | | | [...] EXTERNAL | | | | performed at [facility], [address] | | LAB | | | | [address], | | | | | | [place] [address] | | | | + + + [...] EXTERNAL | | | | performed at [facility], [address] | | LAB | | | | [address], | | | | | | [place] [address] | | | | + + + [...] EXTERNAL | | | | performed at [facility];[address] | | LAB | | | | [address];[place], [place] | | | | | | [address] | | | | + + + [...] | | | | | [place] [address] | | | | + + + + + + | Triglycerid | 181 (H)Comment: Testing | mg/dL | EXTERNAL | | | es | performed at [facility], [address] | | LAB | | | | [address], | | | | | | [place] [address] | | | | + + + + + + | HDL | 30 (L)Comment: Testing | mg/dL | EXTERNAL | | | | performed at [facility], [address] | | LAB | | | | [address], | | | | | | [place] [address] | | | | + + + + + + | LDL, | 70Comment: Testing | mg/dL | EXTERNAL | | | Calculated | performed at [facility], [address] | | LAB | | | | [address], | | | | | | [place] [address] | | | | + + + [...] | | | | | [place] [address] | | | | + + + + + + | K | 3.7Comment: Testing | 3.5 - 4.9 | EXTERNAL | | | | performed at [facility], [address] | mmol/L | LAB | | | | [address], | | | | | | [place] [address] | | | | + + + + + + | Cl | 106Comment: Testing | 99 - 109 mmol/L | EXTERNAL | | | | performed at [facility], [address] | | LAB | | | | [address], | | | | | | [place] [address] | | | | + + + + + + | CO2 | 31Comment: Testing | 23 - 32 mmol/L | EXTERNAL | | | | performed at [facility], [address] | | LAB | | | | [address], | | | | | | [place] [address] | | | | + + + + + + | Anion Gap | 6Comment: Testing | 5 - 20 mmol/L | EXTERNAL | | | | performed at [facility], [address] | | LAB | | | | [address], | | | | | | [place] [address] | | | | + + + + + + | Glucose, | 133 (H)Comment: Testing | 65 - 99 mg/dL | EXTERNAL | | | Fasting | performed at [facility], [address] | | LAB | | | | [address], | | | | | | [place] [address] | | | | + + + + + + | BUN | 19Comment: Testing | 8 - 25 mg/dL | EXTERNAL | | | | performed at [facility], [address] | | LAB | | | | [address], | | | | | | [place] [address] | | | | + + + + + + | Creatinine | 1.02Comment: Testing | 0.70 - 1.30 | EXTERNAL | | | | performed at [facility], [address] | mg/dL | LAB | | | | [address], | | | | | | [place] [address] | | | | + + + + + + | BUN/Creatin | 19Comment: Testing | | EXTERNAL | | | ine Ratio | performed at [facility], [address] | | LAB | | | | [address], | | | | | | [place] [address] | | | | + + + + + + | Calcium | 9.1Comment: Testing | 8.5 - 10.5 | EXTERNAL | | | | performed at [facility], [address] | mg/dL | LAB | | | | [address], | | | | | | [place] [address] | | | | + + + + + + | Protein, | 6.4Comment: Testing | 6.3 - 8.2 g/dL | EXTERNAL | | | Total | performed at [facility], [address] | | LAB | | | | [address], | | | | | | [place] [address] | | | | + + + + + + | Albumin | 3.5 (L)Comment: Testing | 3.6 - 5.0 g/dL | EXTERNAL | | | | performed at [facility], [address] | | LAB | | | | [address], | | | | | | [place] [address] | | | | + + + + + + | Globulin | 2.9Comment: Testing | 1.3 - 4.9 g/dL | EXTERNAL | | | | performed at [facility], [address] | | LAB | | | | [address], | | | | | | [place] [address] | | | | + + + + + + | A/G Ratio | 1.2Comment: Testing | 1.0 - 2.4 | EXTERNAL | | | | performed at [facility], [address] | | LAB | | | | [address], | | | | | | [place] [address] | | | | + + + + + + | Bilirubin | 0.3Comment: Testing | 0.1 - 1.5 mg/dL | EXTERNAL | | | Total | performed at [facility], [address] | | LAB | | | | [address], | | | | | | [place] [address] | | | | + + + + + + | ALP, | 61Comment: Testing | 35 - 115 U/L | EXTERNAL | | | External | performed at [facility], [address] | | LAB | | | | [address], | | | | | | [place] [address] | | | | + + + + + + | AST | 18Comment: Testing | 10 - 45 U/L | EXTERNAL | | | | performed at [facility], [address] | | LAB | | | | [address], | | | | | | [place] [address] | | | | + + + + + + | ALT | 13Comment: Testing | 10 - 65 U/L | EXTERNAL | | | | performed at [facility], [address] | | LAB | | | | [address], | | | | | | [place] [address] | | | | + + + [...] | | | | | | [place] [address] | | | | + + + [...] | | | Fingerstick | performed at [facility];[address] | | LAB | | | | [address];[place] | | | | | | [address] | | | | + + + [...] EXTERNAL | | | | performed at [facility];[address] | [address] | LAB | | | | [address];[place] | | | | | | [address] | | | | + + + + + -+ | Non- | 5.13Comment: Testing | 4.20 - 5.70 | EXTERNAL | | | Red Blood | performed at [facility];[address] | M/uL | LAB | | | Cells | [address];[place] | | | | | Counted | [address] | | | | + + + + + -+ | Hemoglobin | 13.0 (L)Comment: Testing | 13.2 - 17.0 | EXTERNAL | | | | performed at [facility];[address] | g/dL | LAB | | | | [address];[place] | | | | | | [address] | | | | + + + + + -+ | Hematocrit, | 40.1Comment: Testing | 39.0 - 50.0 % | EXTERNAL | | | POC | performed at [facility];[address] | | LAB | | | | [address];[place] | | | | | | [address] | | | | + + + + + -+ | MCV | 78.1 (L)Comment: Testing | 80.0 - 100.0 fl | EXTERNAL | | | | performed at [facility];[address] | | LAB | | | | [address];[place] | | | | | | [address] | | | | + + + + + -+ | MCH | 25.3 (L)Comment: Testing | 27.0 - 34.0 pg | EXTERNAL | | | | performed at [facility];[address] | | LAB | | | | [address];[place] | | | | | | [address] | | | | + + + + + -+ | MCHC | 32.4Comment: Testing | 32.0 - 35.5 | EXTERNAL | | | | performed at [facility];[address] | g/dL | LAB | | | | [address];[place] | | | | | | [address] | | | | + + + + + -+ | RDW-CV | 47.3Comment: Testing | 37 - 53 fl | EXTERNAL | | | | performed at [facility];[address] | | LAB | | | | [address];[place] | | | | | | [address] | | | | + + + + + -+ | Platelet | 286Comment: Testing | 150 - 400 K/uL | EXTERNAL | | | Count | performed at [facility];[address] | | LAB | | | Plasma | [address];[place] | | | | | | [address] | | | | + + + + + -+ | MPV | 7.5Comment: Testing | fl | EXTERNAL | | | | performed at [facility];[address] | | LAB | | | | [address];[place] | | | | | | [address] | | | | + + + + + -+ | Differentia | AUTOMATEDComment: | | EXTERNAL | | | l Type | Testing performed at | | LAB | | | | [facility];[address];[place] [address] | | | | + + + + + -+ | % Segmented | 60.94Comment: Testing | % | EXTERNAL | | | | performed at [facility];[address] | | LAB | | | Neutrophils | [address];[place] | | | | | | [address] | | | | + + + + + -+ | % | 26.14Comment: Testing | % | EXTERNAL | | | Lymphocytes | performed at [facility];[address] | | LAB | | | | [address];[place] | | | | | | [address] | | | | + + + + + -+ | % Monocytes | 9.76Comment: Testing | % | EXTERNAL | | | | performed at [facility];[address] | | LAB | | | | [address];[place] | | | | | | [address] | | | | + + + + + -+ | % | 2.70Comment: Testing | % | EXTERNAL | | | Eosinophils | performed at [facility];[address] | | LAB | | | | [address];[place] | | | | | | [address] | | | | + + + + + -+ | % Basophils | 0.46Comment: Testing | % | EXTERNAL | | | | performed at [facility];[address] | | LAB | | | | [address];[place] | | | | | | [address] | | | | + + + + + -+ | Absolute | 5.97Comment: Testing | 1.90 - 7.40 | EXTERNAL | | | Segmented | performed at [facility];[address] | K/uL | LAB | | | Neutrophils | [address];[place] | | | | | | [address] | | | | + + + + + -+ | Absolute | 2.56Comment: Testing | 1.00 - 3.90 | EXTERNAL | | | Lymphocytes | performed at [facility];[address] | K[address] | LAB | | | | [address];[place] | | | | | | [address] | | | | + + + + + -+ | Absolute | 0.96 (H)Comment: Testing | 0.00 - 0.80 | EXTERNAL | | | Monocytes | performed at [facility];[address] | K/uL | LAB | | | | [address];[place] | | | | | | [address] | | | | + + + + + -+ | Absolute | 0.26Comment: Testing | 0.00 - 0.50 | EXTERNAL | | | Eosinophils | performed at [facility];[address] | K/uL | LAB | | | | [address];[place] | | | | | | [address] | | | | + + + + + -+ | Absolute | 0.05Comment: Testing | 0.00 - 0.10 | EXTERNAL | | | Basophils | performed at [facility];[address] | K[address] | LAB | | | | [address];[place] | | | | | | [address] | | | | + + + + + -+ | Na | 143Comment: Testing | 135 - 143 | EXTERNAL | | | | performed at [facility];[address] | mmol/L | LAB | | | | [address];[place] | | | | | | [address] | | | | + + + + + -+ | K | 3.4 (L)Comment: Testing | 3.5 - 4.9 | EXTERNAL | | | | performed at [facility];[address] | mmol/L | LAB | | | | [address];[place] | | | | | | [address] | | | | + + + + + -+ | Cl | 107Comment: Testing | 99 - 109 mmol/L | EXTERNAL | | | | performed at [facility];[address] | | LAB | | | | [address];[place] | | | | | | [address] | | | | + + + + + -+ | CO2 | 26Comment: Testing | 23 - 32 mmol/L | EXTERNAL | | | | performed at [facility];[address] | | LAB | | | | [address];[place] | | | | | | [address] | | | | + + + + + -+ | Anion Gap | 14Comment: Testing | 5 - 20 mmol/L | EXTERNAL | | | | performed at [facility];[address] | | LAB | | | | [address];[place] | | | | | | [address] | | | | + + + + + -+ | Glucose, | 150 (H)Comment: Testing | 65 - 99 mg/dL | EXTERNAL | | | Fasting | performed at [facility];[address] | | LAB | | | | [address];[place] | | | | | | [address] | | | | + + + + + -+ | BUN | 17Comment: Testing | 8 - 25 mg/dL | EXTERNAL | | | | performed at [facility];[address] | | LAB | | | | [address];[place] | | | | | | [address] | | | | + + + + + -+ | Creatinine | 1.15Comment: Testing | 0.70 - 1.30 | EXTERNAL | | | | performed at [facility];[address] | mg/dL | LAB | | | | [address];[place] | | | | | | [address] | | | | + + + + + -+ | BUN/Creatin | 15Comment: Testing | | EXTERNAL | | | ine Ratio | performed at [facility];[address] | | LAB | | | | [address];[place] | | | | | | [address] | | | | + + + + + -+ | Calcium | 9.1Comment: Testing | 8.5 - 10.5 | EXTERNAL | | | | performed at [facility];[address] | mg/dL | LAB | | | | [address];[place] | | | | | | [address] | | | | + + + + + -+ | Protein, | 7.3Comment: Testing | 6.3 - 8.2 g/dL | EXTERNAL | | | Total | performed at [facility];[address] | | LAB | | | | [address];[place] | | | | | | [address] | | | | + + + + + -+ | Albumin | 3.4 (L)Comment: Testing | 3.6 - 5.0 g/dL | EXTERNAL | | | | performed at [facility];[address] | | LAB | | | | [address];[place] | | | | | | [address] | | | | + + + + + -+ | Globulin | 3.8Comment: Testing | 1.3 - 4.9 g/dL | EXTERNAL | | | | performed at [facility];[address] | | LAB | | | | [address];[place] | | | | | | [address] | | | | + + + + + -+ | A/G Ratio | 0.9 (L)Comment: Testing | 1.0 - 2.4 | EXTERNAL | | | | performed at [facility];[address] | | LAB | | | | [address];[place] | | | | | | [address] | | | | + + + + + -+ | Bilirubin | 0.4Comment: Testing | 0.1 - 1.5 mg/dL | EXTERNAL | | | Total | performed at [facility];[address] | | LAB | | | | [address];[place] | | | | | | [address] | | | | + + + + + -+ | ALP, | 86Comment: Testing | 35 - 115 U/L | EXTERNAL | | | External | performed at [facility];[address] | | LAB | | | | [address];[place] | | | | | | [address] | | | | + + + + + -+ | AST | 19Comment: Testing | 10 - 45 U/L | EXTERNAL | | | | performed at [facility];[address] | | LAB | | | | [address];[place] | | | | | | [address] | | | | + + + + + -+ | ALT | 22Comment: Testing | 10 - 65 U/L | EXTERNAL | | | | performed at [facility];[address] | | LAB | | | | [address];[place] | | | | | | [address] | | | | + + + [...] | | | | | | at [facility];[address] | | | | | | [place] [address] | | | | + + + + + -+ | CK, Total | 151Comment: Testing | 55 - 400 U/L | EXTERNAL | | | | performed at [facility];[address] | | LAB | | | | [address];[place] | | | | | | [address] | | | | + + + [...] [place] | | | | | | [address] | | | | + + + + + -+ | aPTT, | 27Comment: Testing | 23 - 32 seconds | EXTERNAL | | | Patient | performed at [facility];[address] | | LAB | | | | [address];[place] | | | | | | [address] | | | | + + + + + -+ | CK-MB | 2.4Comment: Testing | 0.5 - 3.6 ng/mL | EXTERNAL | | | | performed at [facility];[address] | | LAB | | | | [address];[place] | | | | | | [address] | | | | + + + [...] | | | | | ONLY, -COMPUTER ([phone]), | | | | | | editorial assistant Mel Burrell | | | | | | (18) on 07/14/2014 4:56:55 | | | | | | AM | | | | + + + + + + + + | Specimen | + + | | + + + + + | Narrative | Performed At | + + + | [facility] | EXTERNAL LAB [...] | Hypoxia Hypoxemia | + + | 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
--- OUTSIDE RECORDS SUMMARY | ~2019-10-12 | XMS | Encounter Summary ---
Demographics + + + | Address | [address] | | | [place] [address] | + + + | Home Phone [...] | Sammi Kohler | ECON | [place] [address] | | + + + + + Care Team Providers + +------+ + | Care Waistband Setter Name | Role | Phone | + +------+ + | Mireya Pack NP | PCP | | + +------+ + Reason for Visit + + + | Reason | Comments | + + + | Anticoagulation | | + + + Evaluate & Treat (Urgent) + + + + + + + | Status | Reason | Specialty | Diagnoses / | Referred By | Referred To | | | | | Procedures | Contact | Contact | + + + + + + + | Authorized | Specialty | Anticoagulati | Diagnoses | [facility], | [facility] | | | Services | on | Chronic | Mireya Calixto NP | Anticoagulati | | | Required | | a-fib (HCC) | [address] | on Clinic | | | | | | [address] [facility] | [place] | | | | | | [address] | [address] | | | | | | [place], [place] | [facility] | | | | | | [address] | [place] [address] | | | | | | Phone: | Phone: | | | | | | [phone] | [phone] | | | | | | Fax: | Fax: | | | | | | [phone] | [phone] | + + + + + + + Encounter Details +--------+ + + + + | Date | Type | Department | Care Team | Description | +--------+ + + + + | 09/01/ | Anti-coag | [facility] | Mireya Pack, | Atrial fibrillation | | 2020 | visit | CENTER | COMPUTER SUPPORT TECHNICIAN [address] | with RVR (HCC) | | | | ANTICOAGULATION | [address] [place], | | | | | [facility] [place] | [place] [address] | | | | | [address] | [phone] | | | | | [place], [place] | | | | | | [address] | Kathryn Andrade, | | | | | [phone] | OCEAN EXPORT ACCOUNT MANAGER [address] | | | | | | [place] [address] | | | | | | [phone] | | | | | | | [...] of this encounter Patient Instructions Patient Instructions Kathryn Andrade ARNP - 09/02/2019 2:20 PM PDTFormatting of this no te might be different from the original. ANTICOAGULATION AFTER VISIT SUMMARY [facility] DAILY DOSAGE REMINDER Date: 09/02/2019 Name: Kevyn Guzman : 1955 Your results today: INR 1.1 INR Goal Range: 2.0-3.0 Tablet Size: Warfarin (Coumadin): 5 mg Dosage: Warfarin 7.5 mg every Mon, Wed, Mon; 5 mg all other days Day Sun Mon Sat Tablet strength 5 mg 5 mg 5 mg 5 mg 5 mg 5 mg 5 mg Number of tablets to be taken 1 Tablet(s) 1.5 Tablet(s) 1 Tablet(s) 1.5 Tablet(s) 1 Tablet(s) 1.5 Tablet(s) 1 Tablet(s) If you have medicine changes, scheduled procedures, or bleeding, please contact our clinic immediately. Next appointment: 09/09/2019 Time: 1:20 documented in this encounter Progress Notes Kathryn Andrade ARNP - 09/02/2019 2:20 PM PDTS- Induction visit visit. INR check and w arfarin dosing. Pt dosed warfarin as directed. No medication changes reported. No illnesses or ER visits. No increased bruising or bleeding. O- INR 1.1 A- INR less than therapeutic range. Therapeutic Range: 2.0-3.0 Last INR 1.0. Dosage increased 20%. P- He states that nurse who set up his meds is gone this week on vacation. She has already set up his meds for this week. He is unable to do it himself. I will leave dosage the same under the circumstances. Recheck 1 week. 7.5 mg every Mon, Wed, Mon; 5 mg all other days documented in thi s encounter Plan of [...] [place], | | | | | | [place] [address] | | | | | | [phone] | | | | | | | [...] + + documented in this encounter Results POCT PT/INR fingerstick (09/02/2019 1:38 PM PDT) + +-------+ + + + | Component | Value | Ref Range | Performed | Pathologist | | | | | At | Signature | + +-------+ + + + | INR, POC | 1.1 | 0.9 - 1.2 | | | + +-------+ + + + + + | Specimen | + + | Blood | + + documented in this encounter Visit Diagnoses + + | Diagnosis | + + | Atrial fibrillation with RVR (HCC) Atrial fibrillation | + + documented in this encounter"
--- OUTSIDE RECORDS SUMMARY | ~2019-10-12 | XMS | Encounter Summary ---
Demographics + + + | Address | [address] | | | [place] [address] | + + + | Home Phone [...] + | Sammi Kohler | ECON | [place] [address] | | + + + + + Care Team Providers + +------+ + | Care Financial Accountant Name | Role | Phone | + +------+ + PCP | Unavailable | + +------+ + Encounter Details +--------+ + + + + | Date | Type | Department | Care Team | Description | +--------+ + + + + | 12/04/ | Emergency | [facility] | Breanne Hurtado, | Gastritis; | | 2015 | | [facility] | DO [address] | Non-intractable | | | | EMERGENCY CENTER | [place] [address] | vomiting with | | | | [address] | [phone] | nausea, vomiting of | | | | [place], [place] | | unspecified type | | | | [address] | | | | | | [phone] | | | +--------+ + + + [...] documented as of this encounter ED Notes Breanne Hurtado DO - 12/04/2014 5:15 AM PDTFormatting of this note might be different fro m the original. ED Provider Notes by Breanne Hurtado DO at 12/04/14514 Author: Breanne Hurtado DO Service: Emergency Department Author Type: Physician Filed: 12/05/14 0038 Date of Service: 12/04/14514 Status: Signed Childbirth Educator: Breanne Hurtado DO (Physician) [facility] Department of Emergency Medicine 5:15 AM History of Present Illness Patient Identification Norah Gr is a 58 y.o. male. Patient information was obtained from patient. History/Exam limitations: none. Patient presented to the Emergency Department by: Car Chief Complaint Chief Complaint Patient presents with Abdominal Pain Back Pain 58 y.o. male presents to the ED complaining of back pain. He is frequently seen in the ED f or various complaints. Past medical history is type II DM, A fib on Coumadin, COPD, obstruct aissatou sleep apnea, and stroke. His last abdominal imaging was in April of this year, it was a non-contrast CT and it was normal. His last Creatinine on October 31, 2014 was 0.91. He kelley s had a normal renal function for at least the last 6 months. Onset of symptoms was last nig ht, with a constant course since that time. The patient rates his pain as a 3/10. The patien t states that he was watching TV when his pain began. He states that he lives with a roommat e, and he denies a h/o similar pain. The patient reports that his blood sugars have been wel l-controlled. Care prior to arrival included oxycodone 3 days ago. The patient also complains of dry mouth, SOB (last night, pt wears CPAP machine), nausea, s ubjective fever (onset today), and generalized weakness. He states that he has chronic inter mittent side pain and knee pain for which he takes oxycodone. Patient denies change in BM or vomiting. 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 Past Surgical History Procedure Laterality Date Unlisted procedure arthroscopy Knee surgery rt knee, patella Leg surgery LLE Colonoscopy Cholecystectomy, laparoscopic 09/12/2012 Procedure: LAPAROSCOPIC - CHOLECYSTECTOMY; Surgeon: Jevon Vargas DO; Location: [facility] MAIN OR; Service: General; Laterality: N/A; Abdominal surgery Cholecystectomy Skin cancer excision 10/10/2012 Procedure: EXCISION - SKIN CANCER; Surgeon: Sy Fierro MD; Location: [facility] MA[facility] OR ; Service: Plastics; Laterality: Left; upper arm and upper back w/frozen section Esophagogastroduodenoscopy 03/03/2013 Procedure: ESOPHAGOGASTRODUODENOSCOPY; Surgeon: Howie Gibson MD; Location: [facility] ENDOSCOPY; S ervice: Gastroenterology; Laterality: N/A; Colonoscopy 03/04/2013 Procedure: COLONOSCOPY; Surgeon: Howie Gibson MD; Location: [facility] ENDOSCOPY; Service: Gastroe nterology; Laterality: N/A; Upper gastrointestinal endoscopy Skin biopsy Hernia repair 07/03/2013 Procedure: LAPAROSCOPIC - HERNIA - INCISIONAL; Surgeon: Jevon Vargas DO; Location: [facility] OR; Service: General; Laterality: N/A; Skin lesion excision Left 05/05/2014 Procedure: EXCISION - LESION - FROZEN SECTION; Surgeon: Sy Fierro MD; Location: [facility] OR; Service: Plastics; Laterality: Left; forearm Prior to Admission medications Medication Sig Start Date End Date Taking? Authorizing Provider Albuterol Sulfate (VENTOLIN HFA IN) Inhale 2 puffs into the lungs as needed. 108 mcg/act Historical Provider Vofyk-X-Pvufigdoxgbln (BEANO) TABS Take 150 Units by mouth [...] 100 mg by mouth nightly. Historical Provider rkddclrpa-gqpbdxki-mzbipcnmc hydroxide-simethicone Take 40 mLs by mouth daily [...] Brother Review of Systems Constitutional: Positive for subjective fever and generalized weakness Negative for chills Negative for fatigue Eyes: Negative for vision changes or photophobia Nose: Negative for congestion Mouth: Positive for dry mouth Throat: Negative for sore throat or swelling CV/Resp: Negative for chest pain Positive for uztafzcnb-sl-ufhuug Negative for cough GI: Negative for abdominal pain Positive for nausea Negative for vomiting Negative for constipation Negative for diarrhea Negative for black or bloody stools : Negative for urinary frequency Negative for pain with urination Musculoskeletal: Positive for back pain, chronic knee pain, and chronic side pain Negative for neck pain or stiffness. Skin: Negative for rash Neuro/Psych: Negative for headache All other systems reviewed and negative except as noted. Physical Exam BP 204/81 mmHg | Pulse 72 | Temp(Src) 97 F (36.1 C) | Resp 22 | Wt 103 kg (227 lb 1.2 o z) | SpO2 100% Vital signs interpretation: Hypertensive, tachypneic, otherwise WNL Pulse Oximetry interpretation: Normal General: Alert, in no apparent distress, slightly slurred speech, pt has a muttering speech pattern, disheveled, unkempt, dried food across the front of his chest Eyes: Normal inspection, PERRL, non-icteric, EOM's intact ENT: Ears normal Nose normal Pharynx normal, mucous membranes are moist. Neck: Normal inspection Supple, no lymphadenopathy Non-tender to palpation. Cardiovascular: Rate and rhythm normal No murmurs, clicks or rubs Heart sounds are easily auscultated Chest non-tender to palpation Respiratory: Normal work of breathing Breath sounds equal bilaterally No rales, wheezing or rhonchi Abdomen: Distended but otherwise normal exam Soft, non-tender Normal bowel sounds No guarding or rebound No masses. No pulsatile masses. Back: No apparent tenderness with deep pressure throughout the spine, no overlying skin ab normalities No CVA tenderness or spinal tenderness Skin: Color normal Warm and dry No rash Extremities: Strong and symmetric radial and DP pulses No swelling or pitting edema. No calf tenderness or palpable cords. Neuro: Alert, no AMS, speech is clear. No gross motor/sensory deficits Medical Decision Making and Emergency Department Course ED Department Course Patient presents to ED with complaints of back pain. Exam is as above. My DDx includes, but is not limited to: gastritis, GERD, ACS, and bowel obstruction. Aortic dissection is unlike ly but will screen with CXR. AAA is unlikely as the patient is hypertensive and if he was kelley ving a rupturing aneurysm he should be hypotension. His last CT showed no aneurysmal dilatio n. The patient's back pain is most likely referred from abdominal pain. Will order CBC, CMP, Lipase, Lactic acid, CRP, Magnesium, Phosphorus, serum ketones, CXR, T-spine XR, EKG, Tropo jen, UA, morphine, and Zofran, and reevaluate the patient. Patient's condition is stable at this time. 6:35 AM Reviewed blood work, which was unremarkable. 6:37 AM Reviewed CXR, which was unremarkable. 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 Will order Protonix and GI cocktail, and plan to discharge the patient if pain still well-controlled. 6:46 AM. Patient reevaluation. Patient is stable and feeling better at this time. I discuss ed all ED results and my clinical impression with the patient. I advised patient to follow up with their PCP and the GI specialist and we discussed the emergent signs and symptoms mykel t would necessitate a return to ED. The patient voices understanding and agrees with the alen n. All questions and concerns addressed to the best of my ability. Will discharge home with Rx for Prilosec. The patient agrees to return to the ED immediately if any problems or con cerns. Medications ondansetron (ZOFRAN) injection 4 mg (4 mg Intravenous Given 12/04/14553) morphine injection 4 mg (4 mg Intravenous Given 12/04/14553) lidocaine viscous 2 % 10 mL, aluminum-magnesium hydroxide-simethicone (MAALOX) 200-200-20 M G/5ML 30 mL solution (40 mLs Oral Given 12/04/14655) famotidine (PEPCID) tablet 20 mg (20 mg Oral Given 12/04/14655) Records Reviewed Old medical records. Nursing notes. Nursing notes. Nursing notes reviewed for chief complaint, medications, clinical presentati on and vital signs. Old ED records reviewed (Using the electronic record system of [facility], Troy arellano reviewed the records with regard to the past medical/surgical history, previous medic ations, and allergies). Previous ED visits for similar and unrelated complaints. Laboratory Evaluation Results Procedure Component Value Ref Range Date/Time Protime-INR [[id number]] Collected: 12/04/14534 Order Status: Completed Updated: 12/04/14650 INR 1.3 CBC with differential [[id number]] (Abnormal) Collected: 12/04/14534 Order Status: Completed Specimen Information: Blood Updated: 12/04/14627 WBC 8.81 3.80 - 11.00 K/uL RBC 5.28 4.20 - 5.70 M/uL HGB 13.0 (L) 13.2 - 17.0 g/dL HCT 40.0 39.0 - 50.0 % MCV 75.9 (L) 80.0 - 100.0 fl MCH 24.6 (L) 27.0 - 34.0 pg MCHC 32.4 32.0 - 35.5 g/dL RDW SD 43.8 37 - 53 fl PLT 298 150 - 400 K/uL MPV 7.4 fl DIFF TYPE AUTOMATED NEUTROPHILS 52.18 % LYMPHOCYTES 31.70 % MONOCYTES 9.93 % EOSINOPHILS 5.21 % BASOPHILS 0.98 % NEUTROPHILS ABS 4.60 1.90 - 7.40 K/uL LYMPHOCYTES ABS 2.79 1.00 - 3.90 K/uL MONOCYTES ABS 0.88 (H) 0.00 - 0.80 K/uL EOSINOPHILS ABS 0.46 0.00 - 0.50 K/uL BASOPHILS ABS 0.09 0.00 - 0.10 K/uL MORPHOLOGY NORMAL PLT MORPH Platelet Estimate ADEQUATE Ketones, Serum [[id number]] Collected: 12/04/14534 Order Status: Completed Specimen Information: Blood Updated: 12/04/14627 KETONES,SERUM NEGATIVE NEGATIVE Sedimentation Rate (ESR) [[id number]] (Abnormal) Collected: 12/04/14534 Order Status: Completed Specimen Information: Blood Updated: 12/04/14625 ESR 28 (H) 0 - 20 mm/Hr Lactic acid [[id number]] Collected: 12/04/14554 Order Status: Completed Specimen Information: Blood Updated: 12/04/14621 LACTIC ACID 0.9 0.4 - 2.0 mmol/L Lipase [[id number]] Collected: 12/04/14534 Order Status: Completed Specimen Information: Blood Updated: 12/04/14618 LIPASE 176 73 - 393 U/L C-reactive protein [[id number]] (Abnormal) Collected: 12/04/14534 Order Status: Completed Specimen Information: Blood Updated: 12/04/14618 CRP 0.5 (H) <0.5 mg/dL Magnesium [[id number]] Collected: 12/04/14534 Order Status: Completed Specimen Information: Blood Updated: 12/04/14618 MAGNESIUM 1.9 1.7 - 2.4 mg/dL Phosphorus [[id number]] Collected: 12/04/14534 Order Status: Completed Specimen Information: Blood Updated: 12/04/14618 PHOSPHORUS 3.0 2.3 - 4.8 mg/dL Comprehensive metabolic panel [[id number]] (Abnormal) Collected: 12/04/14534 Order Status: Completed Specimen Information: Blood Updated: 12/04/14618 SODIUM 138 135 - 143 mmol/L POTASSIUM 3.6 3.5 - 4.9 mmol/L CHLORIDE 107 99 - 109 mmol/L CO2 27 23 - 32 mmol/L ANION GAP AGAP 8 5 - 20 mmol/L GLUCOSE 155 (H) 65 - 99 mg/dL BUN 14 8 - 25 mg/dL CREATININE 0.83 0.70 - 1.30 mg/dL BUN/CREAT 17 CALCIUM 8.8 8.5 - 10.5 mg/dL TOTAL PROTEIN 7.4 6.3 - 8.2 g/dL Albumin 3.4 (L) 3.6 - 5.0 g/dL GLOBULIN 4.0 1.3 - 4.9 g/dL A/G 0.8 (L) 1.0 - 2.4 TBIL 0.3 0.1 - 1.5 mg/dL ALK PHOS 108 35 - 115 U/L AST 19 10 - 45 U/L ALT 22 10 - 65 U/L EGFR >60 >60 mL/min/1.73m2 POC cardiac troponin [[id number]] Collected: 12/04/1442 Order Status: Completed Updated: 12/04/14555 POC CARDIAC TROPONIN 0.00 0.00 - 0.10 ng/mL I personally reviewed the lab results and they have been posted to the chart. Pertinent po sitive and negative findings have been addressed appropriately. EKG and Radiology Evaluation EKG performed at 5:33 AM Normal Sinus Rhythm 66 bpm. Normal axis Intervals normal No significant ST segment abnormalities Normal T wave morphology No acute ischemia. Interpreted by me at time of service Imaging Results X-ray thoracic spine 3 views (Final result) Result time: 12/04/14 07:15:08 Procedure changed from XR Thoracic Spine 2 View Final result by Rad Results In Richard (12/04/14 07:15:08) Impression: FINDINGS/ IMPRESSION: Diffuse idiopathic skeletal hyperostosis of the midthoracic spine. Intervertebral disc height is preserved. Vertebral body height is preserved. No acute fracture. Narrative: NORAH GR 1955 XR THORACIC SPINE 3 VIEW 12/04/2014 6:07 AM INDICATION: Upper back pain. COMPARISON: September 15, 2014 TECHNIQUE: Thoracic spine series, 4 views XR chest PA and lateral (Final result) Result time: 12/04/14 07:12:29 Final result by Rad Results In Richard (12/04/14 07:12:29) Impression: No acute cardiopulmonary abnormality Narrative: NORAH GR 1955 58 years Male XR CHEST 2 VIEW FRONTAL AND LATERAL 12/04/2014 6:06 AM INDICATION: Upper back pain. COMPARISON: November 23, 2014 TECHNIQUE: Two view chest, PA and lateral views FINDINGS: Lungs are clear. No pleural effusion, no pneumothorax. Heart size is normal. Mediastinal contours are normal. No acute osseous abnormality. ED Diagnoses Final diagnoses Gastritis Non-intractable vomiting with nausea, vomiting of unspecified type Disposition: ED Disposition Orders Discharge Condition at discharge: Stable Follow-up Information Follow up With Details Comments Contact Info [facility] Emergency Department If symptoms worsen [address] [facility] [address] Jerrell Gutiérrez, DO Go in 3 days As needed [address] [facility] [address] Zach Sen IV, MD Schedule an appointment as soon as possible for a visit today fo r GI follow up [address] [facility] [address] Discharge Medications: New Prescriptions FAMOTIDINE (PEPCID) 20 MG TABLET Take 1 tablet by mouth 2 (two) times daily. This chart has been created using [employer] Speech Recognition software. The chart has been reviewed and there may still exist sound alike word errors. Procedures Additional Documentation Procedures Attending Note: Documentation assistance provided by Nara Briscoe (Scribe). Information recorded by the scribe has been reviewed and validated by . Troy laughlin with its contents. DO Breanne Marques DO 12/05/14 0038 documented in this e ncounter Plan of Treatment +--------+ + + + + | Date | Type | Specialty | Care Team | Description | +--------+ + + + + | 10/16/ | Anti-coag | Anticoagulation | Brittany Zaragoza | | | 2020 | visit | | [address] | | | | | | [facility], | | | | | | [place] [address] | | | | | | [phone] | | | | | | | | +--------+ + + + + documented as of this encounter Procedures + +--------+ + + + | Procedure Name | Priori | Date/Time | Associated Diagnosis | Comments | | | ty | | | | + +--------+ + + + | XR THORACIC SPINE 3 | Routin | 12/04/2014 | | Results for this | | VW | e | 6:07 AM | | procedure are in the | | | | PDT | | results section. | + +--------+ + + + | XR CHEST 2 VIEWS | Routin | 12/04/2014 | | Results for this | | | e | 6:06 AM | | procedure are in the | | | | PDT | | results section. | + +--------+ + + + | LACTIC ACID | Routin | 12/04/2014 | | Results for this | | | e | 5:55 AM | | procedure are in the | | | | PDT | | results section. | + +--------+ + + + | EXTERNAL LAB: CBC | Routin | 12/04/2014 | | Results for this | | | e | 5:35 AM | | procedure are in the | | | | PDT | | results section. | + +--------+ + + + | SEDIMENTATION RATE, | Routin | 12/04/2014 | | Results for this | | AUTOMATED | e | 5:35 AM | | procedure are in the | | | | PDT | | results section. | + +--------+ + + + | PROTIME INR | Routin | 12/04/2014 | | Results for this | | | e | 5:35 AM | | procedure are in the | | | | PDT | | results section. | + +--------+ + + + | C-REACTIVE PROTEIN | Routin | 12/04/2014 | | Results for this | | | e | 5:35 AM | | procedure are in the | | | | PDT | | results section. | + +--------+ + + + | PHOSPHORUS | Routin | 12/04/2014 | | Results for this | | | e | 5:35 AM | | procedure are in the | | | | PDT | | results section. | + +--------+ + + + | MAGNESIUM | Routin | 12/04/2014 | | Results for this | | | e | 5:35 AM | | procedure are in the | | | | PDT | | results section. | + +--------+ + + + | LIPASE | Routin | 12/04/2014 | | Results for this | | | e | 5:35 AM | | procedure are in the | | | | PDT | | results section. | + +--------+ + + + | KETONES, BLOOD | Routin | 12/04/2014 | | Results for this | | | e | 5:35 AM | | procedure are in the | | | | PDT | | results section. | + +--------+ + + + | COMPREHENSIVE | Routin | 12/04/2014 | | Results for this | | METABOLIC PANEL | e | 5:35 AM | | procedure are in the | | | | PDT | | results section. | + +--------+ + + + | ECG 12 LEAD | Routin | 12/04/2014 | | Results for this | | | e | 5:33 AM | | procedure are in the | | | | PDT | | results section. | + +--------+ + + + documented in this encounter Results XR Thoracic Spine 3 Vw (12/04/2014 6:07 AM PDT) + + | Specimen | + + | | + + + + + | Impressions | Performed At | + + + | FINDINGS/ IMPRESSION: Diffuse idiopathic skeletal hyperostosis | | | of the midthoracic spine. Intervertebral disc height is preserved. | | | Vertebral body height is preserved. No acute fracture. | | | | | + + + + + + | Narrative | Performed At | + + + | NORAH GR 1955 XR THORACIC SPINE 3 VIEW 12/04/2014 6:07 | | | AM INDICATION: Upper back pain. COMPARISON: September 15, 2014 | | | TECHNIQUE: Thoracic spine series, 4 views | | + + + + + | Procedure Note | + + | Joaquin Ramos - 09/20/2018 10:29 PM PDT NORAH GR | | 1955 | | XR THORACIC SPINE 3 VIEW | | 12/04/2014 6:07 AM | | | | INDICATION: Upper back pain. | | | | COMPARISON: September 15, 2014 | | | | TECHNIQUE: Thoracic spine series, 4 views | | | | IMPRESSION: | | FINDINGS/ IMPRESSION: | | | | Diffuse idiopathic skeletal hyperostosis of the midthoracic spine. | | | | Intervertebral disc height is preserved. Vertebral body height is preserved. | | | | No acute fracture. | | | | | + + XR Chest 2 Vws (12/04/2014 6:06 AM PDT) + + | Specimen | + + | | + + + + + | Impressions | Performed At | + + + | No acute cardiopulmonary abnormality | | + + + + + + | Narrative | Performed At | + + + | NORAH GR 1955 58 years Male XR CHEST 2 VIEW FRONTAL | | | AND LATERAL 12/04/2014 6:06 AM INDICATION: Upper back pain. | | | COMPARISON: November 23, 2014 TECHNIQUE: Two view chest, PA and | | | lateral views FINDINGS: Lungs are clear. No pleural | | | effusion, no pneumothorax. Heart size is normal. Mediastinal | | | contours are normal. No acute osseous abnormality. | | + + + + + | Procedure Note | + + | Richard, Rad Conversion - 09/20/2018 10:29 PM PDT NORAH GR | | 1955 | | 58 years Male | | XR CHEST 2 VIEW FRONTAL AND LATERAL | | 12/04/2014 6:06 AM | | | | INDICATION: Upper back pain. | | | | COMPARISON: November 23, 2014 | | | | TECHNIQUE: Two view chest, PA and lateral views | | | | FINDINGS: | | | | Lungs are clear. | | | | No pleural effusion, no pneumothorax. | | | | Heart size is normal. Mediastinal contours are normal. | | | | No acute osseous abnormality. | | | | IMPRESSION: | | | | No acute cardiopulmonary abnormality | | | | | + + Lactic Acid (12/04/2014 5:55 AM PDT) + + + + + + | Component | Value | Ref Range | Performed | Pathologist | | | | | At | Signature | + + + + + + | Lactate | 0.9Comment: Testing | 0.4 - 2.0 | EXTERNAL | | | | performed at [facility];888 | mmol/L | LAB | | | | [address];[place], [place] | | | | | | [address] | | | | + + + + + + + + | Specimen | + + | Blood specimen | | (specimen) | + + + +---------+ + + | Performing | Address | City/State/Zipcode | Phone Number | | Organization | | | | + +---------+ + + | EXTERNAL LAB | | | | + +---------+ + + Ketones, blood (12/04/2014 5:35 AM PDT) + + + + + + | Component | Value | Ref Range | Performed | Pathologist | | | | | At | Signature | + + + + + + | Ketones, | NEGATIVEComment: Testing | | EXTERNAL | | | Blood | performed at [facility];88 | | LAB | | | | [address];[place], [place] | | | | | | [address] | | | | + + + + + + + + | Specimen | + + | Blood specimen | | (specimen) | + + + +---------+ + + | Performing | Address | City/State/Zipcode | Phone Number | | Organization | | | | + +---------+ + + | EXTERNAL LAB | | | | + +---------+ + + Sedimentation rate, automated (12/04/2014 5:35 AM PDT) + + + + + + | Component | Value | Ref Range | Performed | Pathologist | | | | | At | Signature | + + + + + + | Sed Rate | 28 (H)Comment: Testing | 0 - 20 mm/Hr | EXTERNAL | | | | performed at [facility];[address] | | LAB | | | | [address];[place], [place] | | | | | | [address] | | | | + + + + + + + + | Specimen | + + | Blood specimen | | (specimen) | + + + +---------+ + + | Performing | Address | City/State/Zipcode | Phone Number | | Organization | | | | + +---------+ + + | EXTERNAL LAB | | | | + +---------+ + + Protime INR (12/04/2014 5:35 AM PDT) + + + + + + | Component | Value | Ref Range | Performed | Pathologist | | | | | At | Signature | + + + + + + | INR | 1.3Comment: REFERENCE | | EXTERNAL | | | [...] | | | | | | [address];[place], [place] | | | | | | [address] | | | | + + + + + + + + | Specimen | + + | | + + + +---------+ + + | Performing | Address | City/State/Zipcode | Phone Number | | Organization | | | | + +---------+ + + | EXTERNAL LAB | | | | + +---------+ + + External Lab: CBC (12/04/2014 5:35 AM PDT) + + + + + + | Component | Value | Ref Range | Performed | Pathologist | | | | | At | Signature | + + + + + + | WBC | 8.81Comment: Testing | 3.80 - 11.00 | EXTERNAL | | | | performed at [facility];888 | K/uL | LAB | | | | [address];[place] | | | | | | [address] | | | | + + + + + + | Non- | 5.28Comment: Testing | 4.20 - 5.70 | EXTERNAL | | | Red Blood | performed at [facility];888 | M/uL | LAB | | | Cells | [address];[place] | | | | | Counted | [id number] | | | | + + + + + + | Hemoglobin | 13.0 (L)Comment: Testing | 13.2 - 17.0 | EXTERNAL | | | | performed at [facility];888 | g/dL | LAB | | | | [address];[place] | | | | | | [address] | | | | + + + + + + | Hematocrit, | 40.0Comment: Testing | 39.0 - 50.0 % | EXTERNAL | | | POC | performed at [facility];[address] | | LAB | | | | [address];[place] | | | | | | [address] | | | | + + + + + + | MCV | 75.9 (L)Comment: Testing | 80.0 - 100.0 fl | EXTERNAL | | | | performed at [facility];[address] | | LAB | | | | [address];[place] | | | | | | [address] | | | | + + + + + + | MCH | 24.6 (L)Comment: Testing | 27.0 - 34.0 pg | EXTERNAL | | | | performed at [facility];[address] | | LAB | | | | [address];[place] | | | | | | [address] | | | | + + + + + + | MCHC | 32.4Comment: Testing | 32.0 - 35.5 | EXTERNAL | | | | performed at [facility];888 | g/dL | LAB | | | | [address];[place] | | | | | | [address] | | | | + + + + + + | RDW-CV | 43.8Comment: Testing | 37 - 53 fl | EXTERNAL | | | | performed at [facility];[address] | | LAB | | | | [address];[place] | | | | | | [address] | | | | + + + + + + | Platelet | 298Comment: Testing | 150 - 400 K/uL | EXTERNAL | | | Count | performed at [facility];888 | | LAB | | | Plasma | [address];[place] | | | | | | [address] | | | | + + + + + + | MPV | 7.4Comment: Testing | fl | EXTERNAL | | | | performed at [facility];[address] | | LAB | | | | [address];[place] | | | | | | [address] | | | | + + + + + + | Differentia | AUTOMATEDComment: | | EXTERNAL | | | l Type | Testing performed at | | LAB | | | | [facility];[address] | | | | | | [address];[place] [address] | | | | + + + + + + | % Segmented | 52.18Comment: Testing | % | EXTERNAL | | | | performed at [facility] [place] [place];888 | | LAB | | | Neutrophils | [address];[place] | | | | | | [address] | | | | + + + + + + | % | 31.70Comment: Testing | % | EXTERNAL | | | Lymphocytes | performed at [facility] [place] [facility];888 | | LAB | | | | [address];[place] | | | | | | [address] | | | | + + + + + + | % Monocytes | 9.93Comment: Testing | % | EXTERNAL | | | | performed at [facility] [place] [facility];888 | | LAB | | | | [address];[place] | | | | | | [address] | | | | + + + + + + | % | 5.21Comment: Testing | % | EXTERNAL | | | Eosinophils | performed at [facility] [place];888 | | LAB | | | | [address];[place] | | | | | | [address] | | | | + + + + + + | % Basophils | 0.98Comment: Testing | % | EXTERNAL | | | | performed at [facility];888 | | LAB | | | | [address];[place] | | | | | | [address] | | | | + + + + + + | Absolute | 4.60Comment: Testing | 1.90 - 7.40 | EXTERNAL | | | Segmented | performed at [facility] [place];888 | K/uL | LAB | | | Neutrophils | [address];[place] | | | | | | [address] | | | | + + + + + + | Absolute | 2.79Comment: Testing | 1.00 - 3.90 | EXTERNAL | | | Lymphocytes | performed at [facility] [place];888 | K/uL | LAB | | | | [address];[place] | | | | | | [address] | | | | + + + + + + | Absolute | 0.88 (H)Comment: Testing | 0.00 - 0.80 | EXTERNAL | | | Monocytes | performed at [facility] [place] [place];888 | K/uL | LAB | | | | [address];[place] | | | | | | [address] | | | | + + + + + + | Absolute | 0.46Comment: Testing | 0.00 - 0.50 | EXTERNAL | | | Eosinophils | performed at [facility] [place];888 | K/uL | LAB | | | | [address];[place] | | | | | | [address] | | | | + + + + + + | Absolute | 0.09Comment: Testing | 0.00 - 0.10 | EXTERNAL | | | Basophils | performed at [facility];888 | K/uL | LAB | | | | [address];[place] | | | | | | [address] | | | | + + + + + + | RBC | NORMAL PLT MORPHComment: | | EXTERNAL | | | Morphology | 1+HYPO1+MICROTesting | | LAB | | | | performed at [facility];[address] | | | | | | [address];[place] | | | | | | [address] | | | | | |MICRO | | | | | |Testing performed at [facility];[address] [facility];[place] [address] | | | | | | | | | | + + + + + + | Platelet | ADEQUATEComment: Testing | | EXTERNAL | | | Estimate | performed at [facility];8 | | LAB | | | | [facility];[place] | | | | | | [address] | | | | + + + + + + + + | Specimen | + + | Blood specimen | | (specimen) | + + + +---------+ + + | Performing | Address | City/State/Zipcode | Phone Number | | Organization | | | | + +---------+ + + | EXTERNAL LAB | | | | + +---------+ + + C-Reactive Protein (12/04/2014 5:35 AM PDT) + + + + + + | Component | Value | Ref Range | Performed | Pathologist | | | | | At | Signature | + + + + + + | CRP | 0.5 (H)Comment: Testing | mg/dL | EXTERNAL | | | | performed at [facility];888 | | LAB | | | | [address];[place] | | | | | | [address] | | | | + + + + + + + + | Specimen | + + | Blood specimen | | (specimen) | + + + +---------+ + + | Performing | Address | City/State/Zipcode | Phone Number | | Organization | | | | + +---------+ + + | EXTERNAL LAB | | | | + +---------+ + + Phosphorus (12/04/2014 5:35 AM PDT) + + + + + + | Component | Value | Ref Range | Performed | Pathologist | | | | | At | Signature | + + + + + + | PHOSPHORUS | 3.0Comment: Testing | 2.3 - 4.8 mg/dL | EXTERNAL | | | | performed at [facility];[address] | | LAB | | | | [address];[place], [place] | | | | | | [address] | | | | + + + + + + + + | Specimen | + + | Blood specimen | | (specimen) | + + + +---------+ + + | Performing | Address | City/State/Zipcode | Phone Number | | Organization | | | | + +---------+ + + | EXTERNAL LAB | | | | + +---------+ + + Magnesium (12/04/2014 5:35 AM PDT) + + + + + [...] [place] | | | | | | [address] | | | | + + + + + + + + | Specimen | + + | Blood specimen | | (specimen) | + + + +---------+ + + | Performing | Address | City/State/Zipcode | Phone Number | | Organization | | | | + +---------+ + + | EXTERNAL LAB | | | | + +---------+ + + Lipase (12/04/2014 5:35 AM PDT) + + + + + [...] | LAB | | | | [address];[place], [place] | | | | | | [address] | | | | + + + [...] + +---------+ + + Comprehensive Metabolic Panel (12/04/2014 5:35 AM PDT) + + + + + [...] [place] | | | | | | [address] | | | | + + + + + + | K | 3.6Comment: Testing | 3.5 - 4.9 | EXTERNAL | | | | performed at [facility];888 | mmol/L | LAB | | | | [address];[place] | | | | | | [address] | | | | + + + + + + | Cl | 107Comment: Testing | 99 - 109 mmol/L | EXTERNAL | | | | performed at [facility];[address] | | LAB | | | | [address];[place] | | | | | | [address] | | | | + + + + + + | CO2 | 27Comment: Testing | 23 - 32 mmol/L | EXTERNAL | | | | performed at [facility];[address] | | LAB | | | | [address];[place] | | | | | | [address] | | | | + + + + + + | Anion Gap | 8Comment: Testing | 5 - 20 mmol/L | EXTERNAL | | | | performed at [facility];[address] | | LAB | | | | [address];[place] | | | | | | [address] | | | | + + + + + + | Glucose, | 155 (H)Comment: Testing | 65 - 99 mg/dL | EXTERNAL | | | Fasting | performed at [facility];[address] | | LAB | | | | [address];[place] | | | | | | [address] | | | | + + + + + + | BUN | 14Comment: Testing | 8 - 25 mg/dL | EXTERNAL | | | | performed at [facility];[address] | | LAB | | | | [address];[place] | | | | | | [address] | | | | + + + + + + | Creatinine | 0.83Comment: Testing | 0.70 - 1.30 | EXTERNAL | | | | performed at [facility];888 | mg/dL | LAB | | | | [address];[place] | | | | | | [address] | | | | + + + + + + | BUN/Creatin | 17Comment: Testing | | EXTERNAL | | | ine Ratio | performed at [facility];[address] | | LAB | | | | [address];[place] | | | | | | [address] | | | | + + + + + + | Calcium | 8.8Comment: Testing | 8.5 - 10.5 | EXTERNAL | | | | performed at [facility];888 | mg/dL | LAB | | | | [address];[place] | | | | | | [address] | | | | + + + + + + | Protein, | 7.4Comment: Testing | 6.3 - 8.2 g/dL | EXTERNAL | | | Total | performed at [facility];[address] | | LAB | | | | [address];[place] | | | | | | [address] | | | | + + + + + + | Albumin | 3.4 (L)Comment: Testing | 3.6 - 5.0 g/dL | EXTERNAL | | | | performed at [facility];[address] | | LAB | | | | [address];[place] | | | | | | [address] | | | | + + + + + + | Globulin | 4.0Comment: Testing | 1.3 - 4.9 g/dL | EXTERNAL | | | | performed at [facility];[address] | | LAB | | | | [address];[place] | | | | | | [address] | | | | + + + + + + | A/G Ratio | 0.8 (L)Comment: Testing | 1.0 - 2.4 | EXTERNAL | | | | performed at [facility];[address] | | LAB | | | | [address];[place] | | | | | | [address] | | | | + + + + + + | Bilirubin | 0.3Comment: Testing | 0.1 - 1.5 mg/dL | EXTERNAL | | | Total | performed at [facility];[address] | | LAB | | | | [address];[place] | | | | | | [address] | | | | + + + + + + | ALP, | 108Comment: Testing | 35 - 115 U/L | EXTERNAL | | | External | performed at [facility];[address] | | LAB | | | | [address];[place] | | | | | | [address] | | | | + + + + + + | AST | 19Comment: Testing | 10 - 45 U/L | EXTERNAL | | | | performed at [facility];[address] | | LAB | | | | [address];[place] | | | | | | [address] | | | | + + + + + + | ALT | 22Comment: Testing | 10 - 65 U/L | EXTERNAL | | | | performed at [facility];[address] | | LAB | | | | [address];[place] | | | | | | [address] | | | | + + + [...] at [facility];[address] [place] [address] | | | | | | [facility];[place] [address] | | | | + + + [...] + +---------+ + + ECG 12 lead (12/04/2014 5:33 AM PDT) + + + + + [...] | | | | with ECG of 22-NOV-2014 | | | | | | 23:35,Premature atrial | | | | | | complexes are now | | | | | | PresentNonspecific T | | | | | | wave abnormality no | | | | | | [...] (500), | | | | | | brands editor Keyla Gregory | | | | | | (25) on 12/05/2014 | | | | | | 12:30:52 AM | | | | + + + + + + + + | Specimen | + + | | + + + + + | Narrative | Performed At | + + + | Historically converted procedure from [facility] Epic environment | EXTERNAL LAB | + + + + +---------+ + + | Performing | Address | City/State/Zipcode | Phone Number | | Organization | | | | + +---------+ + + | EXTERNAL LAB | | | | + +---------+ + + documented in this encounter Visit Diagnoses + + | Diagnosis | + + | Gastritis Unspecified gastritis and gastroduodenitis without mention of hemorrhage | + + | Non-intractable vomiting with nausea, vomiting of unspecified type | + + documented in this encounter"
--- OUTSIDE RECORDS SUMMARY | ~2019-10-12 | XMS | Encounter Summary ---
Demographics + + + | Address | [address] | | | [place] [address] | + + + | Home Phone | | + + + | Preferred Language | Unknown | + + + | Marital Status | | + + + | Synagogue Affiliation | 1027 | + + + | Race | White | + + + | Ethnic Group | Not or | + + + Author + + + | Author | [facility] | | | and [place] | + + + | Organization | [facility] | | | and [place] | + + + | Address | Unknown | + + + | Phone | Unavailable | + + + Support + + + + + | Name | Relationship | Address | Phone | + + + + + | Sammi Kohler | ECON | [place] [address] | | + + + + + Care Team Providers + +------+ + | Care Tube Heater Name | Role | Phone | + +------+ + PCP | Unavailable | + +------+ + Encounter Details +--------+ + + + + | Date | Type | Department | Care Team | Description | +--------+ + + + + | 12/15/ | Emergency | [facility] | Yesica Flowers, | arya Tomlinson | | 2013 | | MEDICAL CENTER | DO [address] | encounter; | | | | EMERGENCY CENTER | [place] [address] | Headache(784.0); | | | | [address] | [phone] | Neck pain on right | | | | [place], [place] | | side; Nausea | | | | [address] | | | | | | [phone] | | | +--------+ + + + [...] Case Management by QUINN Tyson at 12/15/13 9741 Author: QUINN Tyson Service: (none) Author Type: Liquefier Filed: 12/15/13 9575 Date of Service: 12/15/13 2722 Status: Signed Agricultural Equipment Sales Engineer: QUINN Tyson (Liquefier) COLTON alert rec'd, 38 ED visits < 12 months. [place] Consistent Care Guidelines are in alen ce at this time: Care Recommendation: Kevyn has a printed Crisis Plan at the Assisted Living Facility that he is to follow before coming to the ED for non life-threatening issues. Please discuss with Kevyn when he present s to the ED The following guidelines were formulated by the ED Care Guidelines Committee of the [facility] Consistent Care Program on May 21, 2013. No controlled substances should be administered in the ED or prescribed from the ED for sub jective pain. Past Medical & Surgical History: Primary Care Provider (PCP) is CRUZITO GUTIÉRREZ DO at [phone] . Notify PCP if giving any additional narcotics for objective findings. PCP supports enrollment in the [place] nsistent Care Program. Medical History: 1. Diabetes-He is on a sliding scale after meals, routine insulin before meals and takes La ntus at night. A1C April, = 7.9%. He was referred to an principal network engineer in February, 4. 2. Chest Pain- Coronary [...] the GE junction (requiring managem ent in [place] at ), rectal ulcer and internal hemorrhoids. 10. Hernia- He has been referred to Dr. Vargas. Problem List: He needs to make regular visits to see his PCP in light of his chronic conditions. He estab lished in February, but he never returned as requested. This patient is developmentally delayed and has multiple chronic conditions and providers. He would benefit from having a Tea Tree Farmer assist him in coordinating his care. He does not see his PCP like he should. History of Behavioral Health Conditions: He has depression and anxiety- This is managed by his PCP. He takes Paxil and abilify. He has been referred to [facility] in February. According to [facility], he never establish ed care. Please follow-up with him and assist him in making another appointment to establish care. Pain/Opioid Agreement: Kevyn has an order at the Assisted Living Facility for hydrocodone as needed. He does not h ave a diagnosis of chronic pain. Please see COMPENSATOR for prescribing history. Social History or Identified Risk: - Fall Risk - Non adherence - Transportation Issues Social History: Kevyn lives at [facility] . He may require another level of care given the number of ED visits at [facility] (22 in the last year)-please contact his [facility] C ase Underpresser Hand (Fermin Preston) to discuss. Kevyn is developmentally delayed- Patient may benefit from having someone with him at his d octor's appointments. He has applied for Dial-A-Ride services (April,) Applied for a Health Home for this client through [facility]- please review Provider One to determ ine if one has been assigned. Additional Information: This patient is case managed by the [place] Consistent Care Program. Please contact the landscape and yardwork laborer at your hospital for any immediate or post ED discharge needs this patient may have. Please contact Tari wolff [place] Consistent [facility] at when patient pr esents to ED. [...] 12/15/13613 Date of Service: 12/15/13613 Status: Signed Agricultural Equipment Sales Engineer: Suresh Marin RN (Registered Nurse) Pt awake alert , in no acute distress. Suresh Marin RN 12/15/13613 onver ivana Transaction, Provider Unknown - 12/15/2013 4:28 AM PST ED Notes by Suresh Marin RN at 12/15/13427 Author: Suresh Marin RN Service: (none) Author Type: Registered Nurse Filed: 12/15/13428 Date of Service: 12/15/13427 Status: Signed Agricultural Equipment Sales Engineer: Suresh Marin RN (Registered Nurse) Pt intermittently awake. Pt states' i feel better than i did yesterday" Suresh Marin RN 12/15/13428 isenMary thao ARNP - 12/15/2013 1:45 AM PSTFormatting of this note might be different from th e original. ED Provider Notes by CITLALY Morrow at 12/15/13144 Author: CITLALY Morrow Service: Emergency Department Author Type: Advanced Omar tered Nurse Practitioner Filed: 12/15/13 0437 Date of Service: 12/15/13144 Status: Attested Agricultural Equipment Sales Engineer: CITLALY Morrow (Advanced Registered Nurse Practitioner) Cosigner: [...] was obtained from patient, EMS personnel and mcc. History/Exam limitations: none. Patient presented to the Emergency Department by: Ambulance Chief Complaint Chief Complaint Patient presents with Fall The patient complains of getting up to use the bathroom and becoming dizzy and falling. Ons et of symptoms was around midnight, with a continued course since that time. The symptoms a re described to be of mafe-wa-ksldxwjz severity. The patient also complains of right neck an d head pain and nauseated. The patient describes the quality and location of the symptoms a s the following: Sharp pain to right side of neck and right side of head. Patient denies lo sing consciousness, states he got himself back to bed and called for help at the assisted [facility] facility. Care prior to arrival consisted of [...] - CHOLECYSTECTOMY; Surgeon: Jevon Vargas DO; Location: [facility] MAIN OR; Service: General; Laterality: N/A; Abdominal surgery Cholecystectomy Skin cancer excision 10/10/2012 Procedure: EXCISION - SKIN CANCER; Surgeon: Sy Fierro MD; Location: [facility]IN OR ; Service: Plastics; Laterality: Left; upper arm and upper back w/frozen section Esophagogastroduodenoscopy 03/03/2013 Procedure: ESOPHAGOGASTRODUODENOSCOPY; Surgeon: Howie Gibson MD; Location: [facility] ENDOSCOPY; S ervice: Gastroenterology; Laterality: N/A; Colonoscopy 03/04/2013 Procedure: COLONOSCOPY; Surgeon: Howie Gibson MD; Location: [facility] ENDOSCOPY; Service: Gastroe nterology; Laterality: N/A; Upper gastrointestinal endoscopy Skin biopsy Hernia repair 07/03/2013 Procedure: LAPAROSCOPIC - HERNIA - INCISIONAL; Surgeon: Jevon Vargas DO; Location: [facility] MAIN OR; Service: General; Laterality: N/A; Prior to Admission medications Medication Sig Start Date End Date Taking? Authorizing Provider Albuterol Sulfate (VENTOLIN HFA IN) Inhale 2 puffs into the lungs as needed. Historical Provider Clbih-X-Sglmecrflzhbv (BEANO) TABS Take 150 Units by mouth [...] 100 mg by mouth nightly. Historical Provider ypxdxqnbl-gmkmbvex-pspqkqcxy hydroxide-simethicone Take 40 mLs by mouth daily [...] on file Social History Narrative Lives in detention, IADL, full code Family History Problem Relation [...] evidence of UTI, negative troponin, no leukocytosis. [place] bolic panel unremarkable except mild hypocalcemia 8.3 [...] Component Value Ref Range Date/Time Cardiac Panel [[id number]] (Abnormal) Collected: 12/15/13209 Order Status: Completed Updated: [...] ng/mL CK-MB Index 2.9 Troponin I, Lab [[id number]] Collected: 12/15/13209 Order Status: Completed Updated: 12/15/13301 Specimen Information: Blood TROPONIN I 0.022 0.00 - 0.10 ng/mL POC clinitek 10 [[id number]] (Abnormal) Collected: 12/15/13215 Order Status: Completed Updated: [...] 15 2013 3:04AM Referring Provider Line: [phone] ID: [id number] Narrative: EXAM: CT HEAD AND [...] primary care provider for recheck [address] [facility] [id number] [facility] Emergency Department Return here for worsening symptoms as we discussed [address] [facility] [address] Discharge Medications: New Prescriptions No new medications [...] | | | | | | [place] [address] | | | | | | [phone] | | | | | | | [...] 3:04AM | | | Referring Provider Line: [phone] ID: [id number] | | + + + [...] Rad Conversion - 09/21/2018 3:31 PM PDT EXAM:CT [...] 2013 3:04AM Referring | | Provider Line: [phone] ID: [id number] | |Alignment: No dislocation or [...] 15 2013 3:04AM Referring Provider Line: [phone] ID: [id number] | + + HISTORICAL LAB [...] [place] | | | | | | [address] | | | | + + + + + -+ | Non- | 4.59Comment: Testing | 4.20 - 5.70 | EXTERNAL | | | Red Blood | performed at [facility];[address] | M/uL | LAB | | | Cells | [address];[place] | | | | | Counted | [id number] | | | | + + + + + -+ | Hemoglobin | 12.3 (L)Comment: Testing | 13.2 - 17.0 | EXTERNAL | | | | performed at [facility];888 | g/dL | LAB | | | | [address] | | | | | | [address] | | | | + + + + + -+ | Hematocrit, | 37.2 (L)Comment: Testing | 39.0 - 50.0 % | EXTERNAL | | | POC | performed at [facility];[address] | | LAB | | | | [address] | | | | | | [address] | | | | + + + + + -+ | MCV | 80.9Comment: Testing | 80.0 - 100.0 fl | EXTERNAL | | | | performed at [facility];[address] | | LAB | | | | [address];[place] | | | | | | [address] | | | | + + + + + -+ | MCH | 26.7 (L)Comment: Testing | 27.0 - 34.0 pg | EXTERNAL | | | | performed at [facility];[address] | | LAB | | | | [address] | | | | | | [address] | | | | + + + + + -+ | MCHC | 33.0Comment: Testing | 32.0 - 35.5 | EXTERNAL | | | | performed at [facility];888 | g/dL | LAB | | | | [address] | | | | | | [address] | | | | + + + + + -+ | RDW-CV | 41.6Comment: Testing | 37 - 53 fl | EXTERNAL | | | | performed at [facility];[address] | | LAB | | | | [address] | | | | | | [address] | | | | + + + + + -+ | Platelet | 244Comment: Testing | 150 - 400 K/uL | EXTERNAL | | | Count | performed at [facility];[address] | | LAB | | | Plasma | [address] | | | | | | [address] | | | | + + + + + -+ | MPV | 7.8Comment: Testing | fl | EXTERNAL | | | | performed at [facility];[address] | | LAB | | | | [address] | | | | | | [address] | | | | + + + + + -+ | Differentia | AUTOMATEDComment: | | EXTERNAL | | | l Type | Testing performed at | | LAB | | | | [facility];[address] | | [address];[place] [address] | | | | + + + + + -+ | % Segmented | 61.1Comment: Testing | % | EXTERNAL | | | | performed at [facility];[address] | | LAB | | | Neutrophils | [address] | | | | | | [address] | | | | + + + + + -+ | % | 24.9Comment: Testing | % | EXTERNAL | | | Lymphocytes | performed at [facility];[address] | | LAB | | | | [address] | | | | | | [address] | | | | + + + + + -+ | % Monocytes | 8.8Comment: Testing | % | EXTERNAL | | | | performed at [facility];[address] | | LAB | | | | [address] | | | | | | [address] | | | | + + + + + -+ | % | 4.4Comment: Testing | % | EXTERNAL | | | Eosinophils | performed at [facility];[address] | | LAB | | | | [address] | | | | | | [address] | | | | + + + + + -+ | % Basophils | 0.8Comment: Testing | % | EXTERNAL | | | | performed at [facility];[address] | | LAB | | | | [address] | | | | | | [address] | | | | + + + + + -+ | Absolute | 5.9Comment: Testing | 1.9 - 7.4 K/uL | EXTERNAL | | | Segmented | performed at [facility];[address] | | LAB | | | Neutrophils | [address] | | | | | | [address] | | | | + + + + + -+ | Absolute | 2.4Comment: Testing | 1.0 - 3.9 K/uL | EXTERNAL | | | Lymphocytes | performed at [facility];[address] | | LAB | | | | [address] | | | | | | [address] | | | | + + + + + -+ | Absolute | 0.9 (H)Comment: Testing | 0 - 0.8 K/uL | EXTERNAL | | | Monocytes | performed at [facility];[address] | | LAB | | | | [address] | | | | | | [address] | | | | + + + + + -+ | Absolute | 0.4Comment: Testing | 0 - 0.5 K/uL | EXTERNAL | | | Eosinophils | performed at [facility];[address] | | LAB | | | | [address] | | | | | | [address] | | | | + + + + + -+ | Absolute | 0.1Comment: Testing | 0 - 0.1 K/uL | EXTERNAL | | | Basophils | performed at [facility];[address] | | LAB | | | | [address] | | | | | | [address] | | | | + + + + + -+ | Na | 141Comment: Testing | 135 - 143 | EXTERNAL | | | | performed at [facility];888 | mmol/L | LAB | | | | [address] | | | | | | [address] | | | | + + + + + -+ | K | 3.7Comment: Testing | 3.5 - 4.9 | EXTERNAL | | | | performed at [facility];888 | mmol/L | LAB | | | | [address] | | | | | | [address] | | | | + + + + + -+ | Cl | 106Comment: Testing | 99 - 109 mmol/L | EXTERNAL | | | | performed at [facility];[address] | | LAB | | | | [address] | | | | | | [address] | | | | + + + + + -+ | CO2 | 31Comment: Testing | 23 - 32 mmol/L | EXTERNAL | | | | performed at [facility];[address] | | LAB | | | | [address] | | | | | | [address] | | | | + + + + + -+ | Anion Gap | 8Comment: Testing | 5 - 20 mmol/L | EXTERNAL | | | | performed at [facility];[address] | | LAB | | | | [address] | | | | | | [address] | | | | + + + + + -+ | Glucose, | 268 (H)Comment: Testing | 65 - 99 mg/dL | EXTERNAL | | | Fasting | performed at [facility];[address] | | LAB | | | | [address] | | | | | | [address] | | | | + + + + + -+ | BUN | 16Comment: Testing | 8 - 25 mg/dL | EXTERNAL | | | | performed at [facility];[address] | | LAB | | | | [address] | | | | | | [address] | | | | + + + + + -+ | Creatinine | 1.09Comment: Testing | 0.70 - 1.30 | EXTERNAL | | | | performed at [facility];888 | mg/dL | LAB | | | | [address] | | | | | | [address] | | | | + + + + + -+ | BUN/Creatin | 15Comment: Testing | | EXTERNAL | | | ine Ratio | performed at [facility];[address] | | LAB | | | | [address] | | | | | | [address] | | | | + + + + + -+ | Calcium | 8.3 (L)Comment: Testing | 8.5 - 10.2 | EXTERNAL | | | | performed at [facility];888 | mg/dL | LAB | | | | [address] | | | | | | [address] | | | | + + + + + -+ | Protein, | 6.5Comment: Testing | 6.3 - 8.2 g/dL | EXTERNAL | | | Total | performed at [facility];[address] | | LAB | | | | [address] | | | | | | [address] | | | | + + + + + -+ | Albumin | 2.9 (L)Comment: Testing | 3.6 - 5.0 g/dL | EXTERNAL | | | | performed at [facility];[address] | | LAB | | | | [address] | | | | | | [address] | | | | + + + + + -+ | Globulin | 3.6Comment: Testing | 1.3 - 4.9 g/dL | EXTERNAL | | | | performed at [facility];[address] | | LAB | | | | [address] | | | | | | [address] | | | | + + + + + -+ | A/G Ratio | 0.8 (L)Comment: Testing | 1.0 - 2.4 | EXTERNAL | | | | performed at [facility];[address] | | LAB | | | | [address] | | | | | | [address] | | | | + + + + + -+ | Bilirubin | 0.2Comment: Testing | 0.1 - 1.5 mg/dL | EXTERNAL | | | Total | performed at [facility];[address] | | LAB | | | | [address] | | | | | | [address] | | | | + + + + + -+ | ALP, | 92Comment: Testing | 35 - 115 U/L | EXTERNAL | | | External | performed at [facility];[address] | | LAB | | | | [address] | | | | | | [address] | | | | + + + + + -+ | AST | 19Comment: Testing | 10 - 45 U/L | EXTERNAL | | | | performed at [facility];[address] | | LAB | | | | [address] | | | | | | [address] | | | | + + + + + -+ | ALT | 22Comment: Testing | 10 - 65 U/L | EXTERNAL | | | | performed at [facility];[address] | | LAB | | | | [address] | | | | | | [address] | | | | + + + [...] | | | | | Blvd;[place] [address] | | | | + + + + + -+ | CK, Total | 93Comment: Testing | 55 - 400 U/L | EXTERNAL | | | | performed at [facility];[address] | | LAB | | | | [address];[place] | | | | | | [address] | | | | + + + [...] [place] | | | | | | [address] | | | | + + + + + -+ | aPTT, | 24Comment: Testing | 23 - 32 seconds | EXTERNAL | | | Patient | performed at [facility];[address] | | LAB | | | | [address] | | | | | | [address] | | | | + + + + + -+ | CK-MB | 2.7Comment: Testing | 0.5 - 3.6 ng/mL | EXTERNAL | | | | performed at [facility];[address] | | LAB | | | | [address] | | | | | | [address] | | | | + + + [...] | | | | | | ACUTE [place] Testing | | | | | | performed at [facility];88 | | | | | | [facility];[place], [place] | | | | | | [address] | | | | + + + [...] | | | | | | -NOV-2013 11:43,T wave | | | | | [...] | | | | | | editor book Leanna Cheng | | | | | | (29) on 12/15/2013 | | | | | [...]
--- OUTSIDE RECORDS SUMMARY | ~2019-10-12 | XMS | Encounter Summary ---
Demographics + + + | Address | [address] | | | [place] [address] | + + + | Home Phone | | + + + | Preferred Language | Unknown | + + + | Marital Status | | + + + | Yazdanism Affiliation | 1027 | + + + | Race | White | + + + | Ethnic Group | Not or | + + + Author + + + | Author | [facility] | | | and [place] | + + + | Organization | [facility] | | | and [place] | + + + | Address | Unknown | + + + | Phone | Unavailable | + + + Support + + + + + | Name | Relationship | Address | Phone | + + + + + | Sammi Kohler | ECON | [place] [address] | | + + + + + Care Team Providers + +------+ + | Care Product Development Actuary Name | Role | Phone | + [...] + + | Closed | Specialty | Urology | Diagnoses | Sirena | [facility] | | | Services | | BPH with | Mireya Calixto NP | [address] | | | Required | | obstruction/ | [address] | | | | | lower | [address] | [place], [place] | | | | | urinary | [address] | [address] | | | | | tract | [place], [place] | Phone: | | | | | symptoms | [address] | [phone] | | | | | | Phone: | Fax: | | | | | | [phone] | [phone] | | | | | | Fax: | | | | | | | [phone] | | +--------+ + + + + + Encounter Details +--------+ + + + + | Date | Type | Department | Care Team | Description | +--------+ + + + + | 07/09/ | Virtual | JEOVANNY JULIANA | Mireya Pack | Essential | | 2020 | Office | [facility] | MINES INSPECTOR [address] | hypertension | | | Visit | [address] | [address] [place], (Primary Dx); 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 Obesity, Class I, BMI 30-34.9 07/08/2013 WARD (obstructive sleep apnea) 08/11/2012 does not use CPAP because of the noise Other chronic pain Renal failure Stroke (HCC) TIA (transient ischemic attack) Unspecified visual disturbance reading glasses Past Surgical History: Procedure Laterality Date ABDOMEN SURGERY CHOLECYSTECTOMY CHOLECYSTECTOMY, LAPAROSCOPIC 09/12/2012 Procedure: LAPAROSCOPIC - CHOLECYSTECTOMY; Surgeon: Jevon Vargas DO; Location: [facility] OR; Service: General; Laterality: N/A; COLONOSCOPY COLONOSCOPY 03/04/2013 Procedure: COLONOSCOPY; Surgeon: Howie Gibson MD; Location: [facility] ENDOSCOPY; Service: Gastroen terology; Laterality: N/A; HERNIA REPAIR 07/03/2013 Procedure: LAPAROSCOPIC - HERNIA - INCISIONAL; Surgeon: Jevon Vargas DO; Location: [facility] MAIN OR; Service: General; Laterality: N/A; KNEE SURGERY rt knee, patella LEG SURGERY LLE OTHER SURGICAL HISTORY UNLISTED PROCEDURE ARTHROSCOPY OTHER SURGICAL HISTORY Left 05/05/2014 SKIN LESION EXCISION - Procedure: EXCISION - LESION - FROZEN SECTION; Surgeon: Sy murcia MD; Location: [facility]; Service: Plastics; Laterality: Left; forearm SKIN BIOPSY SKIN CANCER EXCISION Left 10/10/2012 Procedure: EXCISION - SKIN CANCER; Surgeon: Sy Fierro MD; Location: [facility]; Service: Plastics; Laterality: Left; upper arm and upper back w/frozen section UPPER GASTROINTESTINAL ENDOSCOPY UPPER GASTROINTESTINAL ENDOSCOPY 03/03/2013 Procedure: ESOPHAGOGASTRODUODENOSCOPY; Surgeon: Howie Gibson MD; Location: [facility] ENDOS[facility]; Se rvice: Gastroenterology; Laterality: [...] Lives alone x 1 wk, moved from [facility], , 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 2 [...] 9.3 (H) 05/17/2019 No components found for: [id number], PTHINT No results found for: [id number] Lab Results Component Value Date TSH 2.780 [...] hyperglycemia, with long-term current use of insulin ([facility]) Discussed glycemic goals, patient States remainong <250 bs Continue insulin BPH with obstruction/lower urinary tract symptoms Urine culture 07/05 negative no further abx Diarrhea, unspecified type - Clostridium difficile A and B EIA; Future Time appointment completed: 1534 20 3:32 PM PDTdocumented in this encounter Plan of Treatment +--------+ + + + + | Date | Type | Specialty | Care Team | Description | +--------+ + + + + | 10/16/ | Anti-coag | Anticoagulation | Brittany Zaragoza | | | 2019 | visit | | CITLALY [address] | | | | | | [facility] | | | | | | [place] [address] | | | | | | [phone] | | | | | | | [...]
--- OUTSIDE RECORDS SUMMARY | ~2019-10-12 | XMS | Encounter Summary ---
Demographics + + + | Address | [address] | | | [place] [address] | + + + | Home Phone | | + + + | Preferred Language | Unknown | + + + | Marital Status | | + + + | Oriental Orthodox Affiliation | 1027 | + + [...] + | Sammi Kohler | ECON | [place] [address] | | + + + + + Care Team Providers + +------+ + | Care Emery Grinder Name | Role | Phone | + +------+ + PCP | Unavailable | + +------+ + Encounter Details +--------+ + + + + | Date | Type | Department | Care Team | Description | +--------+ + + + + | /05/ | Emergency | [facility] | [facility] [place], | | | 2013 | | [facility] | MD [address] | | | | | EMERGENCY CENTER | [place] [address] | | | | | [address] | [phone] | | | | | [place], [place] | | | | | | [address] | | | | | | [phone] | | | +--------+ + + + [...] ED Notes Conversion Transaction, Provider Unknown - 06/10/2013 10:50 AM PDTFormatting of this note m ight be different from the original. ED Notes by Tatum Pratt RN at 06/10/131049 Author: Tatum Pratt RN Service: (none) Author Type: Registered Nurse Filed: 06/10/131049 Date of Service: 06/10/131049 Status: Signed Ruling Machine Set Up Operator: Tatum Pratt RN (Registered Nurse) hernia Tatum Pratt RN 06/10/131049 docume nted in this encounter Plan of Treatment +--------+ + + + + | Date | Type | Specialty | Care Team | Description | +--------+ + + + + | 10/16/ | Anti-coag | Anticoagulation | Brittany Zaragoza | | | 2019 | visit | | [address] [address] | | | | | | [facility], | | | | | | [place] [address] | | | | | | [phone] | | | | | | | | +--------+ + + + + documented as of this encounter Visit Diagnoses Not on filedocumented in this encounter"
--- OUTSIDE RECORDS SUMMARY | ~2019-10-12 | XMS | Encounter Summary ---
Demographics + + + | Address | [address] [facility] [address] | | | [place] [address] | + + + | Home Phone [...] Sammi Kohler | ECON | [place] [address] | | + + + + + Care Team Providers + +------+ + | Care Registered Travel Nurse Name | Role | Phone | [...] | +--------+ + + + + | 04/12/ | Emergency | [facility] | Kristian Mae | Hyperglycemia | | 2020 | | MEDICAL CENTER | MD [address] | (Primary Dx) | | | | EMERGENCY CENTER | [place], | | | | | [address] [facility] | [place] [address] | | | | | [place], [place] | [phone] | | | | | [address] | | | | | | [phone] | | | +--------+ + + + [...] + + + | Blood Pressure | 178/84 | 04/13/2019 10:59 AM | | | | | PST | | + + + + + | Pulse | 80 | 04/13/2019 10:59 AM | | | | | PST | | + + + + + | Temperature | 36.8 C (98.3 F) | 04/13/2019 8:20 AM | | | | | PST | | + + + + + | Respiratory Rate | 16 | 04/13/2019 8:20 AM | | | | | PST | | + + + + + | Oxygen Saturation | 98% | 04/13/2019 10:59 AM | | | | | PST | | + + + + + | Inhaled Oxygen | - | - | | | Concentration | | | | + + + + + | Weight | 95.3 kg (210 lb) | 04/13/2019 8:20 AM | | | | | PST | | + + + + + | Height | 180.3 cm (5' 11") | 04/13/2019 8:20 AM | | | | | PST | | + + + + + | Body Mass Index | 29.29 | 04/13/2019 8:20 AM | | | | | PST [...] as of this encounter Discharge Instructions Instructions Noble Guerin - 04/13/2019Go home and follow your routine blood glucose manag ement. Return to the ED if you develop chest pain or SOB. Follow up with your primary care ashley pascual in one week for reevaluation. AttachmentsThe following attachments cannot be sent through Care Everywhere.Blood Sugar, Arnulfo fleming to Check Your (Korean)documented in this encounter Medications at Time of Discharge + + + +---------+ + + | Medication | Sig | Dispensed | Refills | Start | End Date | | | | | | Date | | + + + +---------+ + + | atorvaSTATin | Take 1 tablet by | 30 | 11 | 12/26/ | | | (LIPITOR) 40 mg | [...] documented as of this encounter ED Notes Gamal Alonso RN - 04/13/2019 9:03 AM PSTFood ordered for pt. Kristian Kenyon MD - 04/13/2019 8 :43 AM PST [facility] Norah Gr [id number] History obtained from the patient. Mode of Arrival: Ambulance ([id number]) Accompanied by: EMS Room: ED10 CHIEF COMPLAINT Chief Complaint Patient presents with High Blood Sugar (Symptomatic) HPI Norah Gr is a 63 y.o. male who presents to the emergency department with complaints of elevated blood glucose. Onset of symptoms was last night, with a constant course since that time. Patient describes the quality of the symptoms as blood glucose reaching 415. He stat es that he checked his blood glucose before dinner and it was 415, then checked again after an insulin and eating dinner and it was 380. He states that he then checked this morning and his blood glucose was 375 Patient also complains of increase urinary symptoms and dry mouth . Patient denies fever, cough, chills, chest pain, abdominal pain, or any other symptoms at this time. Care HEAD GROWER consisted of insulin injection, with no relief. Patient denies any saeed e in diet or routine. He states he has not eaten yesterday due to concern his blood sugar wi ll come up again. PAST MEDICAL HISTORY Past Medical History: Diagnosis Date Acute pulmonary embolism (HCC) 10/14/2017 Anxiety ARF (acute renal failure) (HCC) 03/02/2013 Atrial fibrillation (HCC) Basal cell carcinoma 09/26/2012 arm and back COPD (chronic obstructive pulmonary disease) (HCC) 03/02/2013 hypoxemia on 2 lts nc Depression Development delay Diabetes mellitus type II DVT (deep venous thrombosis) ([facility]) 03/29/2018 Facial droop 07/08/2013 GIB (gastrointestinal bleeding) 03/02/[address] Nur, rectal ulcers, nodule of GE junction Hypercholesterolemia 07/08/2013 Hyperlipidemia Hypertension jail (current) use of 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 Obesity, Class I, BMI 30-34.9 07/08/2013 WARD (obstructive sleep apnea) 08/11/2012 does not use CPAP because of the noise Other chronic pain Renal failure Stroke (HCC) TIA (transient ischemic attack) Unspecified visual disturbance reading glasses SURGICAL HISTORY Past Surgical History: Procedure Laterality Date ABDOMEN SURGERY CHOLECYSTECTOMY CHOLECYSTECTOMY, LAPAROSCOPIC 09/12/2012 Procedure: LAPAROSCOPIC - CHOLECYSTECTOMY; Surgeon: Jevon Vargas DO; Location: [facility] MAIN OR; Service: General; Laterality: N/A; COLONOSCOPY COLONOSCOPY 03/04/2013 Procedure: COLONOSCOPY; Surgeon: Howie Gibson MD; Location: [facility] ENDOSCOPY; Service: Gastroen terology; Laterality: N/A; HERNIA REPAIR 07/03/2013 Procedure: LAPAROSCOPIC - HERNIA - INCISIONAL; Surgeon: Jevon Vargas DO; Location: [facility] MAIN OR; Service: General; Laterality: N/A; KNEE SURGERY rt knee, patella LEG SURGERY LLE OTHER SURGICAL HISTORY UNLISTED PROCEDURE ARTHROSCOPY OTHER SURGICAL HISTORY Left 05/05/2014 SKIN LESION EXCISION - Procedure: EXCISION - LESION - FROZEN SECTION; Surgeon: Sy murcia MD; Location: [facility] MAIN OR; Service: Plastics; Laterality: Left; forearm SKIN BIOPSY SKIN CANCER EXCISION Left 10/10/2012 Procedure: EXCISION - SKIN CANCER; Surgeon: Sy Fierro MD; Location: [facility] MAIN OR; Service: Plastics; Laterality: Left; upper arm and upper back w/frozen section UPPER GASTROINTESTINAL ENDOSCOPY UPPER GASTROINTESTINAL ENDOSCOPY 03/03/2013 Procedure: ESOPHAGOGASTRODUODENOSCOPY; Surgeon: Howie Gibson MD; Location: [facility] ENDOSCOPY; Se rvice: Gastroenterology; Laterality: N/A; CURRENT MEDICATIONS HEAD GROWER Home Medications Medication Sig acetaminophen (TYLENOL) 325 [...] capsule by mouth 2 times daily. ALLERGIES Nitroglycerin and Vitamin b12 FAMILY HISTORY Family History Problem Relation Age of Onset Heart disease Father Heart disease Sister Diabetes, NIDDM Sister Other (see comment) Brother Heart Problems SOCIAL HISTORY He reports that he has never smoked. He has never used smokeless tobacco. He reports previ ous alcohol use. He reports that he does not use drugs. REVIEW OF SYSTEMS Constitutional: Denies fever, chills, weight loss or weakness Eyes: Denies photophobia or discharge, vision change HENT: Positive for dry mouth Denies sore throat or ear pain, hoarseness, difficulty swallo wing Respiratory: Denies cough or shortness of breath Cardiovascular: Denies chest pain, palpitations or swelling GI: Denies abdominal pain, nausea, vomiting, or diarrhea Musculoskeletal: Denies back pain, joint pain or swelling Skin: Denies rash Neurologic: Denies headache, focal weakness or sensory changes Endocrine: Positive for elevated blood glucose and in crease urinary frequency Denies poly dypsia Lymphatic: Denies swollen glands Psychiatric: Denies depression, suicidal ideation or homicidal ideation All systems negative except as marked. PHYSICAL EXAM VITAL SIGNS: (first vital signs):Temp: 36.8 C (98.3 F) Pulse: 89 Resp: 16 SpO2: 97 % BP : (!) 203/93. Initial blood pressure elevated but improved spontaneously during his visit. Constitutional: Well developed, Well nourished, No acute respiratory distress, Non-toxic a ppearance. HENT: Normocephalic, Atraumatic, Bilateral external ears normal, Tympanic canals and membr anes normal, Oropharynx moist, No oral exudates, Nose normal. No swelling in the oropharynx Neck: Normal range of motion, No tenderness, Supple, No stridor. Eyes: PERRL, EOMI, Conjunctiva normal, No discharge. Respiratory: Normal breath sounds, No respiratory distress, No wheezing, No chest tenderne ss, no accessory muscle use. Cardiovascular: Normal heart rate, Normal rhythm, No murmurs, pulses bilaterally equal and symmetrical in all 4 extremities. GI: Bowel sounds normal, Soft, No tenderness, No masses, No pulsatile masses. No guarding, rigidity or rebound. Grossly obese. No apparent organomegaly. Back: No CVA tenderness. No midline thoracic or lumbar spinal tenderness. Musculoskeletal: Intact distal pulses, No edema, No tenderness, No cyanosis, No clubbing. Good range of motion in all major joints. No major deformities noted. Skin: Warm, Dry, No rashes, petechiae or purpura Neurologic: Alert & oriented x 3. Moves all 4 extremities well; normal speech. Normal kala r function, Normal sensory function, No focal deficits noted. No abnormal cerebellar signs n oted. Sp[each is rapid, but difficult to understand secondary to some mild speech impairment . Lymphatic: No cervical lymphadenopathy noted. Psychiatric: Affect normal, Judgment normal, Mood normal. EKG EKG at 09:07 Rhythm: Normal Sinus Ventricular Rate: 73 bpm TN Interval: Normal ST Segments: Normal T Waves: Diffuse non specific T wave abnormalities in the inferior and lateral leads Blocks: None Comparison to a prior ECG: From 04/04/2019 that shows more pronounced T wave changes in the EKG from today Nondiagnostic for ischemia. Interpreted by me, Kristian Mae MD, at time of clinical encounter. ++ Recent Results (from the past 24 hour(s)) POC Glucose Result Value Ref Range Glucose, POC 329 (H) 65 - 99 mg/dL Lactic Acid Result Value Ref Range Lactate, Serum 2.6 (H) 0.4 - 2.0 mmol/L CBC with Differential Result Value Ref Range WBC 8.63 3.80 - 11.00 K/uL RBC 5.60 4.20 - 5.70 M/uL Hemoglobin 15.9 13.2 - 17.0 g/dL Hematocrit 46.1 39.0 - 50.0 % MCV 82.3 80.0 - 100.0 fl MCH 28.4 27.0 - 34.0 pg MCHC 34.5 32.0 - 35.5 g/dL RDW-SD 38.8 37 - 53 fl Platelet Count 268 150 - 400 K/uL MPV 9.7 fl Diff Type AUTOMATED % nRBC 0.0 0 /100WBC % Neutrophils 54.80 % IMMATURE GRANULOCYTE 0.60 % % Lymphocytes 29.40 % Monocyte % 10.10 % Eosinophils % 4.40 % Basophils % 0.70 % Neutrophils, Absolute 4.73 1.90 - 7.40 K/uL IMMATURE GRANS AB 0.05 0.00 - 0.07 K/uL Absolute Lymphocytes 2.54 1.00 - 3.90 K/uL Absolute Monocytes 0.87 (H) 0.00 - 0.80 K/uL Eosinophils, Absolute 0.38 0.00 - 0.50 K/uL Basophils, Absolute 0.06 0.00 - 0.10 K/uL Comprehensive Metabolic Panel Result Value Ref Range Na 138 135 - 145 mmol/L K 3.9 3.5 - 4.9 mmol/L Cl 102 99 - 109 mmol/L CO2 26 23 - 32 mmol/L Anion Gap 14 5 - 20 mmol/L Glucose 314 (H) 65 - 99 mg/dL BUN 15 8 - 25 mg/dL Creatinine 0.98 0.70 - 1.30 mg/dL BUN/Creatinine Ratio 15 Calcium 9.5 8.5 - 10.5 mg/dL Protein, Total 6.8 6.3 - 8.2 g/dL Albumin 4.2 3.3 - 4.8 g/dL Globulin 2.6 1.3 - 4.9 g/dL A/G Ratio 1.6 1.0 - 2.4 BILIRUBIN, TOTAL 0.4 0.1 - 1.5 mg/dL ALK PHOS 175 (H) 35 - 115 U/L AST 31 10 - 45 U/L ALT 21 10 - 65 U/L Estimated GFR >60 >60 mL/min/1.73m2 Troponin I Result Value Ref Range Troponin I 0.015 0.00 - 0.04 ng/mL Blood gas, Venous Result Value Ref Range pH, Venous, POC 7.468 (H) 7.310 - 7.410 PCO2, Venous, POC 42 41 - 51 mmHG pO2, Venous 32 30 - 40 mmHG HCO3, Venous 31 (H) 23 - 28 mmol/L TCO2, POC 32 (H) 24 - 29 mEq/L Base Excess, POC 7 (H) 0 - 3 mEq/L POC SO2.BLDV.QN.(%) 66.0 60 - 85 % POC Glucose Result Value Ref Range Glucose, POC 269 (H) 65 - 99 mg/dL RADIOLOGY No results found. PROCEDURES Procedures ED COURSE & MEDICAL DECISION MAKING Norah Gr presented to the Emergency Department for evaluation, and he was triaged to [facility] ED10. I reviewed old medical records, nursing notes, and he was evaluated by me. DIFFERENTIAL DIAGNOSIS DDx includes but is not limited to hyperglycemia, DKA, dietary indiscretion, sepsis, other infection, medication non compliance, ACS, vs other. Will order labs and reevaluate the roberto ent. 8:30 AM POC glucose is at 329. 9:09 AM ABG shows elevated pH at 7.468, elevated HCO3 at 31, elevated TCO2 at 32, and eleva tasia base excess at 7. CBC is essentially unremarkable. CMP shows elevated glucose at 314 and elevated ALK PHOS at 175. Will order labs and reevaluate the patient. 9:49 AM Lactic acid is elevated at 2.6. Etiology and significance of this remains somewhat unclear aside from the fact that he has been urinating relatively copiously from his hyperg lycemia. We will give him a modest fluid bolus while he is here. 10:00 AM Troponin is unremarkable. 10:13 AM POC glucose is at 269. Blood sugars are improving from what they were earlier tod ay he appears nontoxic and in no distress. I do not see need to put him in the hospital at this point in time nor be aggressive with his care. I think he can continue to follow his b lood sugars at home and treated per his usual protocols. 10:41 AM I have discussed my clinical impression [...] or further ED treatment at this time. Medications insulin regular (humuLIN R, novoLIN R) injection (vial) 5 Units (5 Units Subcutaneous Given 04/13/19 0857) sodium chloride 0.9% (NS) bolus 500 mL (500 mLs Intravenous New Bag 04/13/19 1017) Last Set of Vital Signs: Temp: 36.8 C (98.3 F) Pulse: 89 Resp: 16 SpO2: 97 % BP: (!) 20 FINAL IMPRESSION 1. Hyperglycemia ED Disposition ED Disposition Condition Comment Discharge Stable Follow-up Information Mireya Pack NP. Schedule an appointment as soon as possible for a visit in 1 week. Specialty: Nurse Practitioner - Primary Care Contact information: [address] [facility] [address] [facility] [place] [facility] [place] [address] Go to [facility]. Specialty: Emergency Medicine Why: If symptoms worsen Contact information: [address] [facility] [address] ED Prescriptions None Portions of this chart may have been created with voice recognition software. Occasional wr enrico-word or sound-alike substitutions may have occurred due to the inherent limitation s of voice recognition software. Read the chart carefully and recognize, using context, wher e these substitutions have occurred. Attending Provider Note: I, Kristian Mae MD personally performed the services descr ibed in this documentation, as scribed by Noble Guerin in my presence, and it is both accur ate and complete. Chart Reviewed and Completed 04/13/2019 10:52 AM. Scribe: Kari Kim, scribing for and in the presence of Kristian Mae MD . Completed by: Kari Barrientos 04/13/2019 10:52 AM Kristian Mae MD 04/13/19 1728 sterhout, Thuan Calixto RN - 04/13/2019 8:31 AM PSTPt reports since last night he has administered 15 units of fast acting insulin X6, last dose 0600.Electronically signed by Gamal Alonso RN at 0 04/13/2019 8:31 AM PSTMohney, Ivonne Preston RN - 04/13/2019 8:17 AM PSTBed: ED10 Expected date: Expected time: Means of arrival: [...] | | | | | [place], | | | | | | [place] [address] | | | | | | [phone] | | | | | | | | +--------+ + + + + + +------+--------+ + + | Name | Type | Priori | Associated Diagnoses | Date/Time | | | | ty | | | + +------+--------+ + + | ED INFORMATION | COLTON | Routin | | 04/13/2019 8:17 AM | | EXCHANGE | | e | | PST | + +------+--------+ + + documented as of this encounter Procedures + +--------+ + + + | Procedure Name | Priori | Date/Time | Associated Diagnosis | Comments | | | ty | | | | + +--------+ + + + | POC GLUCOSE (NON | Routin | 04/13/2019 | | Results for this | | ORD) | e | 10:11 AM | | procedure are in the | | | | PST | | results section. | + +--------+ + + + | ECG 12 LEAD | STAT | 04/13/2019 | | Results for this | | | | 9:07 AM | | procedure are in the | | | | PST | | results section. | + +--------+ + + + | HC BLOOD GASES ANY | Routin | 04/13/2019 | | Results for this | | COMBINATION | e | 9:02 AM | | procedure are in the | | | | PST | | results section. | + +--------+ + + + | TROPONIN I | Routin | 04/13/2019 | | Results for this | | | e | 8:29 AM | | procedure are in the | | | | PST | | results section. | + +--------+ + + + | CBC WITH | STAT | 04/13/2019 | | Results for this | | DIFFERENTIAL | | 8:29 AM | | procedure are in the | | | | PST | | results section. | + +--------+ + + + | COMPREHENSIVE | STAT | 04/13/2019 | | Results for this | | METABOLIC PANEL | | 8:29 AM | | procedure are in the | | | | PST | | results section. | + +--------+ + + + | POC GLUCOSE (NON | Routin | 04/13/2019 | | Results for this | | ORD) | e | 8:27 AM | | procedure are in the | | | | PST | | results section. | + +--------+ + + + | LACTIC ACID | STAT | 04/13/2019 | | Results for this | | | | 8:27 AM | | procedure are in the | | | | PST | | results section. | + +--------+ + + + | ED INFORMATION | Routin | 04/13/2019 | | | | EXCHANGE | e | 8:17 AM | | | | | | PST | | | + +--------+ + + + +---+--------+ | | | | | Proced | | | ure | | | Note - | | | Richard, | | | Lab In | | | | | | Hlseve | | | n - | | | | | | 2019 | | | 8:18 | | | AM PST | | [...] | | | 0 | | | 08:17? | | | GR, | | | NORAH | | | | | | M?MRN: | | | | | | [id number] | | | [id number] | | | riteri | | | [...] | | | Center | | | 16 0 | | | [place] | | [...] | | | int | | | Mar 7, | | | 2020 | | [...] | | omatic | | | ) Feb | | | 27, | | [...] | | [facility] | | | [place] | | | [place] | | | [...] | | [facility] | | | [place] | | | [place] | | | [...] ations | | | | | | Recent [...] | | | [place] | | | Internal Communications Manager | | | al | | | [...] | | | /notif | | | [id number] | | | [id number] | | | [id number] | | | [id number] | | | [id number] | | | [id number] | | | d0 | | | PLEASE | | | [...] documented in this encounter Results POC Glucose (04/13/2019 10:11 AM PST) + + + + + + | Component | Value | Ref Range | Performed | Pathologist | | | | | At | Signature | + + + + + + | Glucose, | 269 (H)Comment: Testing | 65 - 99 mg/dL | [facility] | | | POC | performed at [facility];[address] | | LABORATORY | | | [address];[place], [place] | | | | | | [address] | | | | + + + + + + + + | Specimen | + + | | + + + + + + + | Performing | Address | City/State/Zipcode | Phone Number | | Organization | | | | + + + + + | [facility] | [address] | [place] [address] | [phone] | + + + + + ECG 12 lead (04/13/2019 9:07 AM PST) + + + + + + | Component | Value | Ref Range | Performed | Pathologist | | | | | At | Signature | + + + + + + | VENTRICULAR | 73 | BPM | [facility] | | | RATE EKG | | | | | + + + + + + | ATRIAL RATE | 73 | BPM | [facility] | | + + + + + + | P-R | 162 | ms | [facility] | | | INTERVAL | | | | | + + + + + + | QRS | 86 | ms | [facility] | | | DURATION | | | | | + + + + + + | Q-T | 388 | ms | [facility] | | | INTERVAL | | | | | + + + + + + | Q-T | 427 | ms | [facility] | | | INTERVAL | | | | | | (CORRECTED) | | | | | + + + + + + | P WAVE AXIS | 31 | degrees | [facility] | | + + + + + + | QRS AXIS | 33 | degrees | [facility] | | + + + + + + | T AXIS | 53 | degrees | [facility] | | + + + + + + | INTERPRETAT | Normal sinus rhythmT | | [facility] | | | ION TEXT | wave abnormality, | | | | | | consider inferior | | | | | | ischemiaAbnormal ECGWhen | | | | | | compared with ECG of | | | | | | 04-APR-2019 04:17,No | | | | | | significant [...] | | | | | ONLY, -COMPUTER ([id number]), | | | | | | website/blog editor Uriel Simms | | | | | | (132) on 04/15/2019 | | | | | | 2:06:42 PM | | | | + + [...] | | | + +---------+ + + Blood gas, Venous (04/13/2019 9:02 AM PST) + + + + + + | Component | Value | Ref Range | Performed | Pathologist | | | | | At | Signature | + + + + + + | pH, Venous, | 7.468 (H)Comment: This | 7.310 - 7.410 | [facility] | | | POC | test was developed and | | LABORATORY | | | | its performance | | | | | | characteristics | | | | | | determined by[facility]bbott, it | | | | | | has not been cleared or | | | | | | approved by the [place] FDA. | | | | | | Clinicians should | | | | | | beadvised to consider a | | | | | | patient's signs, | | | | | | symptoms, history, and | | | | | | results of | | | | | | otherdiagnostic tests | | | | | | when interpreting | | | | | | results from these | | | | | | cartridges. | | | | + + + + + + | PCO2, | 42 | 41 - 51 mmHG | [facility] | | | Venous, POC | | | LABORATORY | | + + + + + + | pO2, Venous | 32 | 30 - 40 mmHG | [facility] | | | | | | LABORATORY | | + + + + + + | HCO3, | 31 (H) | 23 - 28 mmol/L | [facility] | | | Venous | | | LABORATORY | | + + + + + + | TCO2, POC | 32 (H) | 24 - 29 mEq/L | [facility] | | | | | | LABORATORY | | + + + + + + | Base | 7 (H) | 0 - 3 mEq/L | [facility] | | | Excess, POC | | | LABORATORY | | + + + + + + | POC | 66.0Comment: Testing | 60 - 85 % | [facility] | | | SO2.BLDV.QN | performed at [facility];[address] | | LABORATORY | | | .(%) | [address];[place] | | | | | | [address] | | | | + + + + + + + + | Specimen | + + | | + + + + + + + | Performing | Address | City/State/Zipcode | Phone Number | | Organization | | | | + + + + + | [facility] | [address] | [place] [address] | [phone] | + + + + + Troponin I (04/13/2019 8:29 AM PST) + + + + + + | Component | Value | Ref Range | Performed | Pathologist | | | | | At | Signature | + + + + + + | Troponin I | 0.015Comment: 0.04 | 0.00 - 0.04 | [facility] [...] at | | | | | | [facility];[address] | | | | | | [facility];[place] [address] | | | | + + + + + + + + | Specimen | + + | | + + + + + + + | Performing | Address | City/State/Zipcode | Phone Number | | Organization | | | | + + + + + | [facility] | [address] | [place] [address] | [phone] | + + + + + Comprehensive Metabolic Panel (04/13/2019 8:29 AM PST) + + + + + [...] + + + + | Glucose | 314 (H) | 65 - 99 mg/dL | [facility] | | | | | | LABORATORY | | + + + + + + | BUN | 15 | 8 - 25 mg/dL | [facility] | | | | | | LABORATORY | | + + + + + + | Creatinine | 0.98 | 0.70 - 1.30 | [facility] | [...] + + + | ALK PHOS | 175 (H) | 35 - 115 U/L | [facility] | | | | | | LABORATORY | | + + + + + + | AST | 31 | 10 - 45 U/L | [facility] | | | | | | LABORATORY | | + + + + + + | ALT | 21 | 10 - 65 U/L | [facility] [...] | | | | | | MDRD IDOR traceable | | | | | | equation.Testing | | | | | | performed at [facility];[address] | | | | | | [facility];[place], [place] | | | | | | [address] | | | | + + + + + + + + | Specimen | + + | Blood | + + + + + + + | Performing | Address | City/State/Zipcode | Phone Number | | Organization | | | | + + + + + | [facility] | [address] | [place] [address] | [phone] | + + + + + CBC with Differential (04/13/2019 8:29 AM PST) + + + + + + | Component | Value | Ref Range | Performed | Pathologist | | | | | At | Signature | + + + + + + | WBC | 8.63 | 3.80 - 11.00 | [facility] | | | | | K/uL | LABORATORY | | + + + + + + | Red Blood | 5.60 | 4.20 - 5.70 | [facility] | | | Cells | | M/uL | LABORATORY | | + + + + + + | Hemoglobin | 15.9 | 13.2 - 17.0 | [facility] | | | | | g/dL | LABORATORY | | + + + + + + | Hematocrit | 46.1 | 39.0 - 50.0 % | [facility] | | | | | | LABORATORY | | + + + + + + | MCV | 82.3 | 80.0 - 100.0 fl | [facility] | | | | | | LABORATORY | | + + + + + + | MCH | 28.4 | 27.0 - 34.0 pg | [facility] | | | | | | LABORATORY | | + + + + + + | MCHC | 34.5 | 32.0 - 35.5 | [facility] | | | | | g/dL | LABORATORY | | + + + + + + | RDW-SD | 38.8 | 37 - 53 fl | [facility] | | | | | | LABORATORY | | + + + + + + | Platelet | 268 | 150 - 400 K/uL | [facility] [...] + + + + | % | 54.80 | % | [facility] | | | Neutrophils | | | LABORATORY | | + + + + + + | IMMATURE | 0.60 | % | [facility] | | | GRANULOCYTE | | | LABORATORY | | + + + + + + | % | 29.40 | % | [facility] | | | Lymphocytes | | | LABORATORY | | + + + + + + | Monocyte % | 10.10 | % | [facility] | | | | | | LABORATORY | | + + + + + + | Eosinophils | 4.40 | % | [facility] | | | % | | | LABORATORY | | + + + + + + | Basophils % | 0.70 | % | [facility] | | | | | | LABORATORY | | + + + + + + | Neutrophils | 4.73 | 1.90 - 7.40 | [facility] | | | , Absolute | | K/uL | LABORATORY | | + + + + + + | IMMATURE | 0.05Comment: NOTE NEW | 0.00 - 0.07 | [facility] | | | GRANS AB | REFERENCE RANGE | K/uL | LABORATORY | | + + + + + + | Absolute | 2.54 | 1.00 - 3.90 | [facility] | | | Lymphocytes | | K/uL | LABORATORY | | + + + + + + | Absolute | 0.87 (H) | 0.00 - 0.80 | [facility] | | | Monocytes | | K/uL | LABORATORY | | + + + + + + | Eosinophils | 0.38 | 0.00 - 0.50 | [facility] | | | , Absolute | | K/uL | LABORATORY | | + + + + + + | Basophils, | 0.06Comment: Testing | 0.00 - 0.10 | [facility] | | | Absolute | performed at [facility];[address] | K/uL | LABORATORY | | | | [address];[place] | | | | | | [address] | | | | + + + + + + + + | Specimen | + + | Blood | + + + + + + + | Performing | Address | City/State/Zipcode | Phone Number | | Organization | | | | + + + + + | [facility] | [address] | [place] [address] | [phone] | + + + + + Lactic Acid (04/13/2019 8:27 AM PST) + + + + + + | Component | Value | Ref Range | Performed | Pathologist | | | | | At | Signature | + + + + + + | Lactate, | 2.6 (H)Comment: CALLED | 0.4 - 2.0 | KR | | | Serum | TO CHYUITA ENRIQUE 0950 BY | mmol/L | LABORATORY | | | | TRTesting performed at | | | | | | [facility] [address];[place] [address] | | | | + + + + + + + + | Specimen | + + | Blood | + + + + + + + | Performing | Address | City/State/Zipcode | Phone Number | | Organization | | | | + + + + + | [facility] | [address] | [place] [address] | [phone] | + + + + + POC Glucose (04/13/2019 8:27 AM PST) + + + + + + | Component | Value | Ref Range | Performed | Pathologist | | | | | At | Signature | + + + + + + | Glucose, | 329 (H)Comment: Testing | 65 - 99 mg/dL | [facility] | | | POC | performed at [facility];[address] | LABORATORY | | | | [address];[place] | | | | | | [address] | | | | + + + + + + + + | Specimen | + + | | + + + + + + + | Performing | Address | City/State/Zipcode | Phone Number | | Organization | | | | + + + + + | [facility] | [address] | [place] [address] | [phone] | + + + + + documented in this encounter Visit Diagnoses + + | Diagnosis | + + | Hyperglycemia - Primary Other abnormal glucose | + + documented in this encounter Administered Medications + +--------+ +---------+------+ + | Medication Order | MAR | Action | Dose | Rate | Site | | | Action | Date | | | | + +--------+ +---------+------+ + | insulin regular (humuLIN R, | Given | 04/13/19 | 5 Units | | Abdomen- | | novoLIN R) injection (vial) | | 20 8:57 | | | RLQ | | Units 5 Units, Subcutaneous, | | AM PST | | | | | ONCE, 04/13/19 at 0855, For 1 | | | | | | | dose, Only for use with U-100 | | | | | | | insulin syringe., | | | | | | + +--------+ +---------+------+ + +---+---+ | | | +---+---+ + +---------+ +---------+-------+---+ | sodium chloride 0.9% (NS) bolus | New Bag | 04/13/19 | 500 mLs | 1000 | | | 500 mL 500 mL, Intravenous, | | 20 10:17 | | mL/hr | | | Administer over 30 Minutes, ONCE, | | AM PST | | | | | 04/13/19 at 1020, For 1 dose | | | | | | + +---------+ +---------+-------+---+ +---+---+ | | | +---+---+ documented in this encounter
--- OUTSIDE RECORDS SUMMARY | ~2019-10-12 | XMS | Encounter Summary ---
Demographics + + + | Address | [address] | | | [place] [address] | + + + | Home Phone | | + + + | Preferred Language | Unknown | + + + | Marital Status | | + + + | Anabaptism Affiliation | 1027 | + + + | Race | White | + + + | Ethnic Group | Not or | + + + Author + + + | Author | [facility] | | | and [place] | + + + | Organization | [facility] | | | and [place] | + + + | Address | Unknown | + + + | Phone | Unavailable | + + + Support + + + + + | Name | Relationship | Address | Phone | + + + + + | Sammi Kohler | ECON | [place] [address] | | + + + + + Care Team Providers + +------+ + | Care Die Repair Name | Role | Phone | + +------+ + | Mik Diego DO | PCP | | + +------+ + Encounter Details +--------+ + + + + | Date | Type | Department | Care Team | Description | +--------+ + + + + | 10/18/ | Skilled | [facility] | Mireya Pack, | Impaired mobility | | 2019 | Nursing | [facility] | CLINICAL 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 [address] | and ADLs (Primary | | | Facility | [address] | [address] [place], | Dx); Type 2 diabetes | | | | [place], [place] | [place] [address] | mellitus with | | | | [address] | [phone] | hyperglycemia, with | | | | [phone] | | long-term current | | | | | | use of insulin | | | | | | ([facility]); Paroxysmal | | | | | | atrial fibrillation | | | | | | ([facility]); WARD | | | | | | (obstructive sleep | | | | | | apnea); Essential | | | | | | hypertension; | | | | | | Anxiety | +--------+ + + + + Social [...] + + + | Blood Pressure | 158/74 | 10/18/2018 8:10 AM | | | | | PDT | | + + + + + | Pulse | 76 | 10/18/2018 8:10 AM | | | | | PDT | | + + + + + | Temperature | 36.6 C (97.9 F) | 10/18/2018 8:10 AM | | | | | PDT | | + + + + + | Respiratory Rate | 16 | 10/18/2018 8:10 AM | | | | | PDT | | + + + + + | Oxygen Saturation | 97% | 10/18/2018 8:10 AM | | | | | PDT | | + + + + + | Inhaled Oxygen | - | - | | | Concentration | | | | + + + + + | Weight | 99.3 kg (219 lb) | 10/18/2018 8:10 AM | | | | | PDT | | + + + + + | Height | 180.3 cm (5' 11") | 10/18/2018 8:10 AM | | | | | PDT | | + + + + + | Body Mass Index | 30.54 | 10/18/2018 8:10 AM | | | | | PDT [...] encounter Progress Notes Mireya Pack NP - 10/18/2018 9:45 AM PDTFormatting of this note might be different fr om the original. Subjective: Patient ID: Kevyn Guzman is a 62 y.o. male Resident of [facility] with a qualifying stay at [facility] from 10/11/18-10/16/18. Kevyn watson is [...] should. Patient was ruled out from having [place] on serial cardiac enz ymes, blood pressures and blood sugars were better controlled, OT and PT saw the patient rec ommended SNF and the patient was subsequently discharged to [facility]. Discharged to [facility] for PT/OT, medication management and mcc. Past Medical History: Diagnosis Date Acute pulmonary embolism (HCC) 10/14/2017 Anxiety ARF (acute renal failure) ([facility]) 03/02/2013 Atrial fibrillation (HCC) Basal cell carcinoma 09/26/2012 arm and back COPD (chronic obstructive pulmonary disease) ([facility]) 03/02/2013 hypoxemia on 2 lts nc Depression Development delay Diabetes mellitus type II DVT (deep venous thrombosis) ([facility]) 03/29/2018 Facial droop 07/08/2013 GIB (gastrointestinal bleeding) 03/02/[address] Nur, rectal ulcers, nodule of GE junction Hypercholesterolemia 07/08/2013 Hyperlipidemia Hypertension lump maker (current) use of 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 Obesity, Class I, BMI 30-34.9 07/08/2013 WARD (obstructive sleep apnea) 08/11/2012 does not use CPAP because of the noise Other chronic pain Renal failure Stroke (HCC) TIA (transient ischemic attack) Unspecified visual disturbance reading glasses Past Surgical History: Procedure Laterality Date ABDOMEN SURGERY CHOLECYSTECTOMY CHOLECYSTECTOMY, LAPAROSCOPIC 09/12/2012 Procedure: LAPAROSCOPIC - CHOLECYSTECTOMY; Surgeon: Jevon Vargas DO; Location: [facility] OR; Service: General; Laterality: N/A; COLONOSCOPY COLONOSCOPY 03/04/2013 Procedure: COLONOSCOPY; Surgeon: Howie Gibson MD; Location: [facility] ENDOSCOPY; Service: Gastroen terology; Laterality: [...] FROZEN SECTION; Surgeon: Sy murcia MD; Location: [facility] MAIN OR; Service: Plastics; Laterality: Left; forearm SKIN BIOPSY SKIN CANCER EXCISION Left 10/10/2012 Procedure: EXCISION - SKIN CANCER; Surgeon: Sy Fierro MD; Location: [facility] MAIN OR; Service: Plastics; Laterality: Left; upper arm and upper back w/frozen section UPPER GASTROINTESTINAL ENDOSCOPY UPPER GASTROINTESTINAL ENDOSCOPY 03/03/2013 Procedure: ESOPHAGOGASTRODUODENOSCOPY; Surgeon: Howie Gibson MD; Location: [facility] ENDOSCOPY; Se rvice: Gastroenterology; Laterality: [...] mouth 2 times daily. 60 tablet 1 ARIPiprazole (ABILIFY) 5 mg tablet Take 1 tablet by mouth Daily for 30 days. 30 tablet 1 aspirin 81 MG tablet Take 1 tablet by mouth Daily. 30 tablet 1 budesonide-formoterol (SYMBICORT) 160-4.5 mcg/puff inhaler Inhale 2 puffs into the lung s 2 times daily. 1 Inhaler 1 carvedilol (COREG) 12.5 mg tablet Take 1 tablet by mouth 2 times daily (with breakfast & dinner). 60 tablet 1 docusate sodium (COLACE) 100 mg capsule Take 1 capsule by mouth Twice daily as needed for Constipation. 30 capsule 1 fenofibrate 160 mg tablet Take 1 tablet by mouth Daily. 30 tablet 1 hydrALAZINE (APRESOLINE) 25 mg tablet Take 1 tablet by mouth 2 times daily. 60 tablet 1 insulin aspart (NOVOLOG FLEXPEN) 100 units/mL injection pen Inject 12 Units under the s kin 3 times daily (before meals). 2 pen 1 insulin detemir (LEVEMIR FLEXTOUCH) 100 units/mL injection (pen) Inject 55 Units under the skin every morning. 15 mL 12 insulin lispro (HUMALOG) 100 units/mL injection (vial) Inject 5 Units under the skin 3 times daily (with meals). 10 mL 1 lisinopril (PRINIVIL, ZESTRIL) 10 mg tablet Take 2 tablets by mouth Daily. 30 tablet 1 LORazepam (ATIVAN) 0.5 mg tablet Take 1 tablet by mouth 3 times daily as needed for Anx iety. 30 tablet 0 metFORMIN (GLUCOPHAGE) 500 mg tablet Take 1 tablet by mouth 2 times daily (with breakfa st & dinner). 60 tablet 1 NIFEdipine (ADALAT CC) 60 MG 24 hr tablet Take 1 tablet by mouth Daily. 30 tablet 1 pravastatin (PRAVACHOL) 80 MG tablet Take 1 tablet by mouth nightly. 30 tablet 1 tamsulosin (FLOMAX) 0.4 mg CAPS Take 1 capsule by mouth 2 times daily. 60 capsule 1 No current facility-administered medications for this visit. CODE: CPR, Limited HPI Patient reports blood sugar is improved and he is feeling well, motivated to work with ther apy Patient's medications, allergies, past medical, surgical, social [...] and memory ar e not impaired. BP 158/74 | Pulse 76 | Temp 36.6 C (97.9 F) | Resp 16 | Ht 1.803 m (5' 11") | Wt 9 9.3 kg (219 lb) | SpO2 97% | BMI 30.54 kg/m Lab Results Component Value Date NA [...] 11.0 (H) 10/14/2018 No components found for: [id number], PTHINT No results found for: [id number] No results found for: TSH, T4 No results found for: IRON, TIBC, FERRITIN No results found for: FERRITIN Assessment/Plan: Diagnoses and all orders for this visit: Impaired mobility and ADLs good rehabilitation candidate PT/OT eval and treat Discussed rehabilitation plan of care in detail Type 2 diabetes mellitus with hyperglycemia, with long-term current use of insulin (HCC) With BS rainging 150-200, continue current insulin orders and adjust to maintain goal < 180 Paroxysmal atrial fibrillation (HCC) Rate controlled, continue anticoagulation WARD (obstructive sleep apnea) Essential hypertension Fair control continue current antihypertensive And adjust to goal SBP < 130 Anxiety - Controlled. Continue current management documented in this e ncounter Plan of Treatment +--------+ + + + + | Date | Type | Specialty | Care Team | Description | +--------+ + + + + | 10/16/ | Anti-harry | Anticoagulation | Brittany Zaragoza | | | 2020 | visit | | [address] | | | | | | [place], | | | | | | [place] [address] | | | | | | [phone] | | | | | | | | +--------+ + + + + documented as of this encounter Visit Diagnoses + + | Diagnosis | + + | Impaired mobility and ADLs - Primary Mechanical problems with limbs | + + | Type 2 diabetes mellitus with hyperglycemia, with long-term current use of insulin | | (HCC) | + + | Paroxysmal atrial fibrillation (HCC) Atrial fibrillation | + + | WARD (obstructive sleep apnea) Obstructive sleep apnea (adult) (pediatric) | + + | Essential hypertension Unspecified essential hypertension | + + | Anxiety Anxiety state, unspecified | + + documented in this encounter
--- OUTSIDE RECORDS SUMMARY | ~2019-10-12 | XMS | Encounter Summary ---
Demographics + + + | Address | [address] | | | [place] [address] | + + + | Home Phone [...] + + | Author | [facility] | | | and [place] | + + + | Organization | [facility] | | | and [place] | + + + | Address | Unknown | + + + | Phone | Unavailable | + + + Support + + + + + | Name | Relationship | Address | Phone | + + + + + | Sammi Kohler | ECON | [place] [address] | | + + + + + Care Team Providers + +------+ + | Care Dental Equipment Mechanic Name | Role | Phone | + +------+ + PCP | Unavailable | + +------+ + Encounter Details +--------+ + + + + | Date | Type | Department | Care Team | Description | +--------+ + + + + | 09/18/ | Emergency | [facility] | Jayce Allred, | Abdominal | | 2013 | | [facility] | MD [address] | discomfort; Bloated | | | | EMERGENCY CENTER | [place], [place] | abdomen; S/P | | | | [address] | [address] | cholecystectomy; | | | | [place], [place] | [phone] | Elevated C-reactive | | | | [address] | | protein (CRP); Serum | | | | [phone] | | albumin decreased; | | | | | | Mild anemia | +--------+ + + + + Social [...] ED Notes Conversion Transaction, Provider Unknown - 09/18/2012 6:18 AM PDTFormatting of this note m ight be different from the original. ED Notes by Melania Hammer RN at 09/18/12617 Author: Melania Hammer RN Service: (none) Author Type: Registered Nurse Filed: 09/18/12617 Date of Service: 09/18/12617 Status: Signed Director [facility]: Melania Hammer RN (Registered Nurse) Report from EVE Garces RN 09/18/12617 Jayce Rivera MD - 09/18/2012 4:06 AM PDTFormatting of this note might be different from the o riginal. ED Provider Notes by Jayce Allred MD at 09/18/12405 Author: Jayce Allred MD Service: (none) Author Type: Physician Filed: 09/18/122208 Date of Service: 09/18/12405 Status: Signed Director [facility]: Jayce Allred MD (Physician) Related Notes: Related Note by Abimael Madrid PA-C (Physician Real Estate Closing Coordinator - Certifie d) filed at 09/18/12632 I have reviewed the note and supervised the mid-level provider. Jayce Allred MD 09/18/122208 itAbimael rodas PA-C - 09/18/2012 4:06 AM PDTFormatting of this note might be different from the origina l. ED Provider Notes by Abimael Madrid PA-C at 09/18/12405 Author: Abimael Madrid PA-C Service: (none) Author Type: Physician Real Estate Closing Coordinator - Gabrielle ertified Filed: 09/18/12632 Date of Service: 09/18/12405 Status: Signed Director [facility]: Abimael Madrid PA-C (Physician Real Estate Closing Coordinator - Certified) Related Notes: Cosigned by Jayce Allred MD (Physician) filed at 09/18/122208 Procedures [facility] Department of Emergency Medicine History of Present Illness Patient Identification Kevyn Guzman is a 56 y.o. male presenting with generalized abdominal pain Patient information was obtained from patient. History/Exam limitations: none. Patient presented to the Emergency Department Car Chief Complaint Chief Complaint Patient presents with Abdominal Pain Kevyn Guzman presents for evaluation of generalized abdominaldiscomfort and feeling a brett le bloated. The symptom onset was 3 days ago, and has had a slowly progressing course. The d iscomfort is located diffusely over his entire abdomen, and is rated as 3/10 discomfort. The pain is described as "uncomfortable and I feel bloated". There is no radiation. The pain is made worse by nothing and is relieved by nothing. The patient also complains of the follow ing additional symptoms: "I feel gassy". Care prior to arrival consisted of none. The pert inent past history includes a cholecystomy last week on 09/12/[address] Vargas . The past workup for the patient has included Abdominal CT scan and abdominal US. Pt has had normal marcus wel movements and has been passing gas. Pt denies any fever, chills, weight changes, fatigu e, headaches, neck pain or stiffness. No vomiting, diarrhea, constipation, dysuria, hematuri a. Denies any cough, sore throat, congestion, SOB, chest pain, palpitations, rash, lymphaden opathy, paresthesias, gait abnormalities, visual changes, myalgias, or new bruising. Primary care provider: JERRELL GUTIÉRREZ Past Medical History Diagnosis Date Diabetes mellitus type II Atrial fibrillation Hypertension Hyperlipidemia Anxiety Depression WARD (obstructive sleep apnea) 08/11/2012 Past Surgical History Procedure Date Unlisted procedure arthroscopy Knee surgery Leg surgery LLE Colonoscopy Cholecystectomy, laparoscopic 09/12/2012 Procedure: LAPAROSCOPIC - CHOLECYSTECTOMY; Surgeon: Jevon Vargas DO; Location: [facility] MAIN OR; Service: General; Laterality: N/A; Prior [...] needed for Pain. 09/13/12 09/23/12 Jevon Vargas, paroxetine (PAXIL) 40 MG tablet Take 40 [...] on file Social History Narrative Lives in [facility], [place], full code Family History Problem Relation Age of Onset Heart disease Father Heart disease Sister Diabetes type II Sister Review of Systems Review of Systems Constitutional: Negative for: fever, chills, fatigue, sweats or weight changes Eyes: Negative for: decreased vision, discharge or irritated eyes Nose: Negative for: nosebleed, trauma or discharge Throat: Negative for: mouth sores, drooling or difficulty swallowing Cardiovascular/Respiratory: Negative for: chest pain, shortness of breath, cough Gastrointestinal: Positive for: abdominal discomfort as noted in HPI, No vomiting, diarrhe a, black or bloody stools Genitourinary: Negative for: dysuria, hematuria, urinary problems Musculoskeletal: Negative for: myalgias and arthralgias Skin: Negative for: laceration, lesion or rash Neuro and psych: Negative for: fainting, head injury, seizure, trouble walking Endocrine/Heme/Lymph: Negative for: swollen lymph nodes, easy bruising All systems reviewed and otherwise negative Physical Exam BP 135/72 | Pulse 66 | Temp 98.7 F (37.1 C) (Oral) | Resp 18 | SpO2 95% Vital signs: Have been reviewed and are unremarkable, no fever Pulse Oximetry Interpretation: Normal on room air General: Alert and oriented in mild apparent distress secondary to abdominal discomfort Eyes: Normal inspection, pupils equal, round and reactive to light , non-icteric ENT: Ears normal, no drainage Nose normal and no deformity Pharynx: Mucosa is normal and moist, uvula is midline and no tonsillar enlargement Neck: Normal inspection and ROM, supple, no lymphadenopathy, no meningeal signs Heart: Regular rate and Normal rhythm , no murmurs Respiratory: Breath sounds normal bilaterally, normal chest rise and fall, Abdomen: No Tenderness to abdomen. No guarding, rebound, or masses. No hepatosplenomeg vee. Bowel sounds are normal. Pt has several well healing abdominal incisions and a drain i n place to his RUQ. No tenderness to palpation over McBurney's point Rovsing's sign: negative Psoas/obturator sign: negative Richardson's sign: negative Genitourinary: Deffered Rectal exam: Deferred Back: No CVA tenderness Skin: Color normal, no petechia or rash, warm and dry Ext: Normal inspection and ROM. No posterior calf tenderness or edema Neuro: No motor deficits, moving all extremities equally, equal kitchen manager, no sensory deficit, Crainal nerves II-VII are grossly intact Psych: Appropriate affect and judgement, no evidence of hallucinations or delusions Medical Decision Making and Emergency Department Course ED Department Course 03:45 initiated patient care After introducing myself to the patient, I have performed a careful history and physical ex amination. I have formulated the differential diagnosis that needs to be addressed during t his Emergency Room visit, briefly discussed this differential with the patient, and then dis cussed with them the plan of care. I have also addressed the risks and benefits of all diag nostic and treatment modalities planned for this ED visit. This patient presents with the chief complaint of mild generalized abdominal pain and feeli ng bloated. The abdomen is soft, without peritonitis. The patient Does not have tenderness on exam, I do not feel that the patient has an acute surgical abdomen at this time. I feel that the list of possible emergent diagnoses that the patient requires an evaluation for inc ludes (but is not limited to) cholelithiasis, cholecystitis, hepatitis, pancreatitis, nephro lithiasis, urine infection, anemia, dehydration, acute renal failure, acute appendicitis, el ectrolyte changes, gastritis, gastroenteritis, diverticulitis, SBO and also ileus. I believe that laboratory testing and further diagnostic imaging is necessary to ensure that there is no acute emergent cause of the symptoms. Will check basic labs including urine screen, CBC, CMP, CRP, lipase and amylase, and imaging. Also will give IV fluids, medications for nause a and pain if needed, and then will reassess pt after labs have resulted. 04:08 Ordered labs, UA and a CT abdomen/pelvis w/ IV contrast. Pt states he does not need a nything for pain at this time. 05:[address] results as noted below: IMPRESSION: Interval cholecystectomy. Interval development of a hypodense region along the medial margin of the liver suspicious for fluid collection measuring approximately 12 cm in length and 4 cm in maximal diameter. This likely represents a subcapsular postoperative flui d collection, possibly seroma or biloma. Infection not excluded by CT. There is a percutaneo us catheter which runs below the inferior margin of the flo hepatis and terminates in the gastrohepatic ligament region. 05:07 PT and PTT are unremarkable 05:43 CBC is remarkable for mild anemia and a slight increase in WBC or 11.7 05:46 CRP is elevated at 21 05:47 Amylase and lipase are unremarkable 05:50 Recheck on patient and he is sitting up in bed with no real complaint at this time, s tates his abdominal discomfort is about a 1/10. No nausea, chest pain, or SOB. 06:07 Urine dip is unremarkable 06:10 Discussed case, labs and CT results with Dr. Allred and he agrees to have patient RTED in 12 hours for recheck or sooner if any new or worsening symptoms as well to keep his alrea dy scheduled post-op apointment with Sam Nickerson in 1 day (09/19/12) 06:22 Patient reevaluation. Patient is stable and feeling better at this time. I discussed all ED Lab and imaging results with the patient and discussed the importance of follow up in ED in 12 hours for recheck or sooner for any new or worsening symptoms as well as follow up with Dr. Vargas in 1 day, I stated that his CT scan could not r/o an infection and he shoemaker s have an elevated CRP, but that elevation could be elevated due to his recent surgery. Sinc e his discomfort had decreased and he feels better and is afebrile, has no abdominal tendern ess or signs of peritonitis, no elevation of WBC I feel he is ready for discharge. Pt agrees with this plan. I have discussed my clinical impression and treatment plan with the patient. We have speci fically discussed the signs and symptoms that would necessitate immediate return to the [facility]. I have discussed progression of illness and possible need for return here to emergency room. I have also discussed the importance of continued outpatient follow up w ith a primary care provider. To the best of my ability I have answered the patient's questi ons. Based upon the patient s history, physical exam, emergency department course, and an y laboratory and diagnostic studies performed, I feel that there is no current emergent [facility] condition that warrants admission, transfer, or further emergency department treatment a t this time. Patient agrees to discharge plan and had no further questions. We have discuss ed s/s that would necessitate an immediate return visit to the ED. No decompensation or new symptoms observed or reported during visit. Below is a summary of any medications given during this Emergency Department visit: Medications sodium chloride 0.9 % flush 10 mL (not administered) iopamidol (ISOVUE-300) 61 % injection 100 mL (100 mL Intravenous Given 09/18/12515) Records Reviewed Old ED records reviewed (Using the electronic record system of [facility] [place] arellano reviewed the records with regard to the past medical/surgical history, previous medic ations, and allergies). Nursing notes reviewed for chief complaint, medications, clinical presentation and vital si gns. Surgical Note from 09/12/12 Consultations and Phone calls Dr. Allred - ED Physician Laboratory Evaluation Results Procedure Component Value Units Date/Time Urine Microscopic [[id number]] Collected:09/18/12 0600 Specimen Information:Urine / Urine, Clean Catch Updated:09/18/12616 CBC w Auto Diff [[id number]] (Abnormal) Collected:09/18/12342 Specimen Information:Blood Updated:09/18/12546 WBC 11.7 (H) K/uL RBC 4.43 M/uL HGB 12.5 (L) g/dL HCT 38.1 (L) % MCV 85.9 fl MCH 28.2 pg MCHC 32.8 g/dL RDW SD 43.8 fl PLT 318 K/uL MPV 7.3 fl DIFF TYPE AUTOMATED NEUTROPHILS 64.6 % LYMPHOCYTES 20.0 % MONOCYTES 11.5 % EOSINOPHILS 3.4 % BASOPHILS 0.5 % NEUTROPHILS ABS 7.6 (H) K/uL LYMPHOCYTES ABS 2.3 K/uL MONOCYTES ABS 1.3 (H) K/uL EOSINOPHILS ABS 0.4 K/uL BASOPHILS ABS 0.1 K/uL Complete Metabolic Panel [[id number]] (Abnormal) Collected:09/18/12342 Specimen Information:Blood Updated:09/18/12545 SODIUM 142 mmol/L POTASSIUM 3.9 mmol/L CHLORIDE 102 mmol/L CO2 28 mmol/L ANION GAP AGAP 16 mmol/L GLUCOSE 154 (H) mg/dL BUN 19 mg/dL CREATININE 1.26 mg/dL BUN/CREAT 15 CALCIUM 9.5 mg/dL TOTAL PROTEIN 7.6 g/dL Albumin 2.9 (L) g/dL GLOBULIN 4.8 g/dL A/G 0.6 (L) TBIL 0.3 mg/dL ALK PHOS 92 U/L AST 16 U/L ALT 24 U/L EGFR >60 mL/min/1.73m2 C-Reactive Protein [[id number]] (Abnormal) Collected:09/18/12342 Specimen Information:Blood Updated:09/18/12545 CRP 21.0 (H) mg/dL Amylase [[id number]] (Abnormal) Collected:09/18/12342 Specimen Information:Blood Updated:09/18/1246 AMYLASE 19 (L) U/L PT [[id number]] Collected:09/18/12342 Specimen Information:Blood Updated:09/18/12 0507 INR 1.1 PTT [[id number]] Collected:09/18/12342 Specimen Information:Blood Updated:09/18/127 APTT 29 seconds I personally reviewed the lab results and they have been posted to the chart. Pertinent pos itive and negative findings have been addressed appropriately. Radiology and EKG Evaluation Imaging Results CT Abdomen & Pelvis with contrast (Preliminary result) Result time:09/18/12541 Preliminary result by Rad Results In Richard (09/18/12 05:42:56) Narrative: IMPRESSION: Interval cholecystectomy. Interval development of a hypodense region along the medial margin of the liver suspicious for fluid collection measuring approximately 12 cm in length and 4 cm in maximal diameter. This likely represents a subcapsular postoperative flu id collection, possibly seroma or biloma. Infection not excluded by CT. There is a percutane ous catheter which runs below the inferior margin of the flo hepatis and terminates in the gastrohepatic ligament region. RADIA Read by Marina Moon MD on Sep 18 2012 5:42AM ED Diagnoses Final diagnoses Abdominal discomfort Bloated abdomen S/P cholecystectomy on 09/12/12 Elevated C-reactive protein (CRP) Serum albumin decreased Mild anemia Disposition: ED Disposition Discharge Condition at discharge: Stable Follow-up Information Follow up With Details Comments Contact Info Jevon Vargas, DO In 1 day Keep your already scheduled post-op appointment on 09/19/[address] [place] [address] [facility] [address] [facility] Emergency Department Return to ED in 12 hours for recheck or sooner if any new or worsening symptoms. [address] [facility] [address] Jerrell Gutiérrez, DO As needed [address] [facility] [id number] Discharge Medications: New Prescriptions No new medications Abimael Madrid PA-C 09/18/12 0633 documentchad light in this encounter Plan of Treatment +--------+ + + + + | Date | Type | Specialty | Care Team | Description | +--------+ + + + + | 10/16/ | Anti-coag | Anticoagulation | Brittany Zaragoza | | | 2019 | visit | | CITLALY [address] | | | | | | [address], | | | | | | [place] [address] | | | | | | [phone] | | | | | | | | +--------+ + + + + documented as of this encounter Procedures + +--------+ + + + | Procedure Name | Priori | Date/Time | Associated Diagnosis | Comments | | | ty | | | | + +--------+ + + + | CT ABDOMEN PELVIS W | Routin | 09/18/2012 | | Results for this | | CONTRAST | e | 5:16 AM | | procedure are in the | | | | PDT | | results section. | + +--------+ + + + documented in this encounter Results CT Abdomen Pelvis w Contrast (09/18/2012 5:16 AM PDT) + + | Specimen | + + | | + + + + + | Narrative | Performed At | + + + | EXAM: CT ABDOMEN AND PELVIS EXAM DATE: 09/18/2012 05:19 AM. | | | CLINICAL HISTORY: Abdominal pain. COMPARISONS: 09/05/2012. | | | TECHNIQUE: Routine helical CT imaging was performed through the | | | abdomen and pelvis. IV contrast: 100 mL Isovue-300 . Enteric | | | contrast: None. Reconstructions: Coronal. FINDINGS: Lung Bases: | | | Unremarkable. Liver: There is hepatic steatosis. There is a fluid | | | collection along the medial margin of the liver measuring | | | approximately 12 cm in length and 4 cm in maximal diameter (for | | | example, image 80 coronal series). Gallbladder/Bile Ducts: | | | Interval cholecystectomy. There is a percutaneous drain which runs | | | through the flo hepatis and terminates in the region of the | | | gastrohepatic ligament. No bile duct dilatation. Spleen: Normal. | | | Pancreas: Normal. Adrenal Glands: Normal. Kidneys: Normal. | | | No masses or hydronephrosis. Peritoneal Cavity/Bowel: Stomach, | | | small bowel, and colon are unremarkable. No evidence of appendicitis. | | | No adenopathy. Pelvic Organs: Normal. The bladder and visualized | | | pelvic organs are within normal limits. Vasculature: No aneurysms | | | or other significant abnormality. Bones: No significant | | | abnormality. Other: None. IMPRESSION: Interval | | | cholecystectomy. Interval development of a hypodense region along the | | | medial margin of the liver suspicious for fluid measuring | | | approximately 12 cm in length and 4 cm in maximal diameter. This | | | likely represents a subcapsular postoperative fluid collection, | | | possibly seroma or biloma. Infection not excluded by CT. There is a | | | percutaneous catheter which runs below the inferior margin of the | | | flo hepatis and terminates in the gastrohepatic ligament region. | | | RADIA Electronically signed by Marina Moon MD on Sep 18 | | | 2012 7:07AM SITE ID: [id number] | | + + + + + | Procedure Note | + + | Richard, Rad Conversion - 09/28/2018 3:24 PM PDT EXAM:CT ABDOMEN AND PELVIS EXAM DATE: | | 09/18/2012 05:19 AM. CLINICAL HISTORY: Abdominal pain. COMPARISONS: 09/05/2012. | | TECHNIQUE: Routine helical CT imaging was performed through the abdomen and pelvis. IV | | contrast: 100 mL Isovue-300 . Enteric contrast: None. Reconstructions: Coronal. | | FINDINGS:Lung Bases: Unremarkable. Liver: There is hepatic steatosis. There is a fluid | | collection along the medial margin of the liver measuring approximately 12 cm in length | | and 4 cm in maximal diameter (for example, image 80 coronal series). Gallbladder/Bile | | Ducts: Interval cholecystectomy. There is a percutaneous drain which runs through the | | flo hepatis and terminates in the region of the gastrohepatic ligament. No bile duct | | dilatation. Spleen: Normal. Pancreas: Normal. Adrenal Glands: Normal. Kidneys: Normal. | | No masses or hydronephrosis. Peritoneal Cavity/Bowel: Stomach, small bowel, and colon | | are unremarkable. No evidence of appendicitis. No adenopathy. Pelvic Organs: Normal. The | | bladder and visualized pelvic organs are within normal limits. Vasculature: No | | aneurysms or other significant abnormality. Bones: No significant abnormality. Other: | | None. IMPRESSION: Interval cholecystectomy. Interval development of a hypodense region | | along the medial margin of the liver suspicious for fluid measuring approximately 12 cm | | in length and 4 cm in maximal diameter. This likely represents a subcapsular | | postoperative fluid collection, possibly seroma or biloma. Infection not excluded by CT. | | There is a percutaneous catheter which runs below the inferior margin of the flo | | hepatis and terminates in the gastrohepatic ligament region. RADIA Electronically | | signed by Marina Moon MD on Sep 18 2012 7:07AM SITE ID: [id number] | | | |Adrenal Glands: Normal. | | | |Kidneys: Normal. No masses or hydronephrosis. | | | |Peritoneal Cavity/Bowel: Stomach, small bowel, and colon are unremarkable. No evidence of a ppendicitis. No adenopathy. | | | |Pelvic Organs: Normal. The bladder and visualized pelvic organs are within normal limits. | | | |Vasculature: No aneurysms or other significant abnormality. | | | |Bones: No significant abnormality. | | | |Other: None. | | | |IMPRESSION: Interval cholecystectomy. Interval development of a hypodense region along the medial margin of the liver suspicious for fluid measuring approximately 12 cm in length and 4 cm in maximal diameter. This likely represents a subcapsular | |postoperative fluid collection, possibly seroma or biloma. Infection not excluded by CT. Th ere is a percutaneous catheter which runs below the inferior margin of the flo hepatis and terminates in the gastrohepatic ligament region. | | | |RADIA | | | | Electronically signed by Marina Moon MD on Sep 18 2012 7:07AM SITE ID: [id number] | + + documented in this encounter Visit Diagnoses + + | Diagnosis | + + | Abdominal discomfort Abdominal pain, unspecified site | + + | Bloated abdomen Flatulence, eructation, and gas pain | + + | S/P cholecystectomy Other acquired absence of organ | + + | Elevated C-reactive protein (CRP) | + + | Serum albumin decreased Other disorders of plasma protein metabolism | + + | Mild anemia Anemia, unspecified | + + documented in this encounter
--- OUTSIDE RECORDS SUMMARY | ~2019-10-12 | XMS | Encounter Summary ---
Demographics + + + | Address | [address] | | | [place] [address] | + + + | Home Phone [...] | Sammi Kohler | ECON | [place] [address] | | + + + + + Care Team Providers + +------+ + | Care Acetylene Torch Solderer Name | Role | Phone | + +------+ + | Mik Diego DO | PCP | | + +------+ + Encounter Details +--------+ + + + + | Date | Type | Department | Care Team | Description | +--------+ + + + + | 08/25/ | Orders Only | [facility] | Conversion | | | 2014 | | CENTER | Transaction, | | | | | ANTICOAGULATION | Provider Unknown | | | | | [facility] | | | | | | [address] | (Fax) | | | | | [place], [place] | | | | | | [address] | | | | | | [phone] | | | +--------+ + + + [...] 08/25/14 1413 Encounter Date: 08/25/2014 Status: Signed Splicing Machine Operator Automatic: CITLALY Romo (Advanced Registered Nurse Practitioner) S- [...] | | | | | [address] [place], | | | | | | [place] [address] | | | | | | [phone] | | | | | | | [...]
--- OUTSIDE RECORDS SUMMARY | ~2019-10-12 | XMS | Encounter Summary ---
Demographics + + + | Address | [address] | | | [place] [address] | + + + | Home Phone | | + + + | Preferred Language | Unknown | + + + | Marital Status | | + + + | Cheondoism Affiliation | 1027 | + + + [...] + | Sammi Kohler | ECON | [place] [address] | | + + + + + Care Team Providers + +------+ + | Care Line Construction Supervisor Name | Role | Phone | + +------+ + | Mireya Pack NP | PCP | | + +------+ + Reason for Visit +--------+--------+ + | Reason | Onset | Comments | | | Date | | +--------+--------+ + | Triage | 07/14/ | | | | 2020 | | +--------+--------+ + Encounter Details +--------+ + + + + | Date | Type | Department | Care Team | Description | +--------+ + + + + | 07/14/ | Telephone | [facility] | Mireya Pack, | Triage | | 2020 | | [facility] [address] | [facility] [address] | | | | | [address] | [address] [place], | | | | | [place], [place] | [place] [address] | | | | | [id number] | [phone] | | | | | [phone] | | | +--------+ + + + [...] Encounter - Lucia Amos RN - 07/15/2019 2:13 PM PDTPlease note phone enc ounter dated 07/10/19 for this call. Thanks. elephone Encounter - Heidi Moody - 07/15/2019 1:25 PM PDTDai edy is returning call from Araseli, Please call her at [phone] Heidi Moody elephone Encounter - Mireya Liu NP - 07/15/2019 11:49 AM PDTCall placed to ED triage, relayed patient-speci fic social concerns and request case management involvement during ED visit. elephone Encounter - Mireya Pack NP - 07/15/2019 11:41 AM PDTPatient reports ongoing diarrhea since hospi nicole discharge > 4 watery stools per day not responding to pepto bismol. He has not been able to get tested for c diff as outpatient and not sure if he could get neighbor to pharmacy picking tech ant ibiotic if prescribed. Given his social situation unable to obtain care in timely fashion outpatient, I recommende d he present to ED for r/o cdiff and treatment diarrhea I would recommend case management consult in ED and consider SNF placement for possible tra nsition to [facility] in future. elephone Encounter - Mireya Pack NP - 07/15/2019 11:06 AM PDTLeft voicemail on patient phone and recommen ded we discuss his symptoms further and evaluate plan of care. Left [facility] as most direct way to contact me. Electronically signed by Mireya Pack NP at 09/2019 11:07 AM PDTTelephone Encounter - Diane Hill RN - 07/15/2019 9:17 AM PDTCalled back and spoke to his Aid who said she could get the supplies for his test but that might n ot be until Mon. Encouraged her that the sooner he could get the test the better. Aid stat ed that she would talk to the pt to make a decision. elephone Encounter - Diane Hill, RN - 07/15/2019 8:44 AM PDTThis weekend was getting real weak feels like he is going to pass out. Legs are weak and he is very tired. Pt doesn't drive. Aid will be in at 9 -10 :30am tonight and pt asked to ca ll back at that time. Pt still has an lab test that needs to be done for C Diff. elephone Encounter - Heidi Moody - 07/15/2019 8:00 AM PDTPatient is getting weak and its hard to walk. He can't keep going to the ER. Please call him at [phone] Heidi Moody documented in this enco unter Plan of Treatment +--------+ + + + + | Date | Type | Specialty | Care Team | Description | +--------+ + + + + | 10/16/ | Anti-coag | Anticoagulation | Brittany Zaragoza | | | 2019 | visit | | [address] | | | | | | [address] [place], | | | | | | [place] [address] | | | | | | [phone] | | | | | | | [...]
--- OUTSIDE RECORDS SUMMARY | ~2019-10-12 | XMS | Encounter Summary ---
Demographics + + + | Address | [address] | | | [place] [address] | + + + | Home Phone [...] + | Sammi Kohler | ECON | [place] [address] | | + + + + + Care Team Providers + +------+ + | Care Interlibrary Loan Services Librarian Name | Role | Phone | + +------+ + | Mireya Pack NP | PCP | | + +------+ + Reason for Visit + + + | Reason | Comments | + + + | Chest Pain | Seen earlier today for hyperglycemia | + + + Encounter Details +--------+ + + + + | Date | Type | Department | Care Team | Description | +--------+ + + + + | 04/12/ | Emergency | [facility] | Norah Barker MD | Type 2 diabetes | | 2020 | | [facility] | [address] | mellitus with | | | | EMERGENCY CENTER | [place] [address] | hyperglycemia, with | | | | [address] | [phone] | long-term current | | | | [place], [place] | | use of insulin (HCC) | | | | [address] | | (Primary Dx); | | | | [phone] | | Atypical chest pain | +--------+ + + + + [...] + + + | Blood Pressure | 166/79 | 04/13/2019 9:30 PM | | | | | PST | | + + + + + | Pulse | 76 | 04/13/2019 9:30 PM | | | | | PST | | + + + + + | Temperature | 36.2 C (97.1 F) | 04/13/2019 8:42 PM | | | | | PST | | + + + + + | Respiratory Rate | 17 | 04/13/2019 9:30 PM | | | | | PST | | + + + + + | Oxygen Saturation | 94% | 04/13/2019 9:30 PM | | | | | PST | | + + + + + | Inhaled Oxygen | - | - | | | Concentration | | | | + + + + + | Weight | 95.3 kg (210 lb) | 04/13/2019 8:42 PM | | | | | PST | | + + + + + | Height | 180.3 cm (5' 11") | 04/13/2019 8:42 PM | | | | | PST | | + + + + + | Body Mass Index | 29.29 | 04/13/2019 8:42 PM | | | | | PST [...] through Care Everywhere.Hyperglycemia ( High Blood Sugar) ([place])Chest Pain, Uncertain Cause ([place])documented in this encounter Medications at Time of [...] + + documented as of this encounter Maximilian Morton RN - 04/13/2019 10:03 PM PST Discharged home in stable condition. Patient confirms possession of all belongings and disc harge documents. BP 166/79 | Pulse 76 | Temp 36.2 C (97.1 F) (Oral) | Resp 17 | Ht 1.803 m (5' 11") | Wt 95.3 kg (210 lb) | SpO2 94% | BMI 29.29 kg/m 1. Type 2 diabetes mellitus with hyperglycemia, with long-term current use of insulin (HCC) 2. Atypical chest pain Maximilian Roger RN - 08/2019 8:46 PM PSTPt was seen earlier today r/t elevated blood sugar. Pt was discharged ho wi and instructed to continue to monitor glucose. 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 Pt noted to have blood sugar of 315 upon EMS transport to ER. Pt was given 324mg of aspirin per EMS. 8:4 7 PM Norah Almodovar MD - 04/13/2019 8:40 PM PSTFormatting of this note might be differe nt from the original. [facility] Department of Emergency Medicine History of Present Illness Patient Identification Norah Guzman is a 63 y.o. male. Patient information was obtained from patient History/Exam limitations:none [id number] Primary Care Doctor: Mireya Pack NP Chief Complaint Chief Complaint Patient presents with Chest Pain Seen earlier today for hyperglycemia Norah Guzman is a 63 y.o. male who presents with hyperglycemia. Patient states that he was here this morning with high blood sugar. They were able to get under control he was told if his blood sugar ever went over 300 he needed to come back. He rechecked it and it went ove r 300. He states that this caused him to feel a sharp pain in his chest that went into his left arm and into his right leg. No pain currently. No fevers, chills, cough, congestion. No nausea, vomiting or diarrhea. No palpitations or shortness of breath. Symptoms are caryl cribed as mild. No significant aggravating or alleviating factors. EMS was activated. 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 Obesity, Class I, BMI 30-34.9 07/08/2013 WARD (obstructive sleep apnea) 08/11/2012 does not use CPAP because of the noise Other chronic pain Renal failure Stroke (HCC) TIA (transient ischemic attack) Unspecified visual disturbance reading glasses Past Surgical History: Procedure Laterality Date ABDOMEN SURGERY CHOLECYSTECTOMY CHOLECYSTECTOMY, LAPAROSCOPIC 09/12/2012 Procedure: LAPAROSCOPIC - CHOLECYSTECTOMY; Surgeon: Jevon Vargas DO; Location: [facility] MAIN OR; Service: General; Laterality: N/A; COLONOSCOPY COLONOSCOPY 03/04/2013 Procedure: COLONOSCOPY; Surgeon: Howie Gibson MD; Location: [facility] ENDOSCOPY; Service: Gastroen terology; Laterality: N/A; HERNIA REPAIR 07/03/2013 Procedure: LAPAROSCOPIC - HERNIA - INCISIONAL; Surgeon: Jevon Vargas DO; Location: [facility] MA[facility] OR; Service: General; Laterality: N/A; KNEE SURGERY rt knee, patella LEG SURGERY LLE OTHER SURGICAL HISTORY UNLISTED PROCEDURE ARTHROSCOPY OTHER SURGICAL HISTORY Left 05/05/2014 SKIN LESION EXCISION - Procedure: EXCISION - LESION - FROZEN SECTION; Surgeon: Sy murcia MD; Location: [facility] MAIN OR; Service: Plastics; Laterality: Left; forearm SKIN BIOPSY SKIN CANCER EXCISION Left 10/10/2012 Procedure: EXCISION - SKIN CANCER; Surgeon: Sy Fierro MD; Location: [facility] MAIN OR; Service: Plastics; Laterality: Left; upper arm and upper back w/frozen section UPPER GASTROINTESTINAL ENDOSCOPY UPPER GASTROINTESTINAL ENDOSCOPY 03/03/2013 Procedure: ESOPHAGOGASTRODUODENOSCOPY; Surgeon: Howie Gibson MD; Location: [facility] ENDOSCOPY; Se rvice: Gastroenterology; Laterality: [...] Plus 5 units if > 300 03/27/19 Mireya Pack NP insulin detemir (LEVEMIR FLEXTOUCH) 100 units/mL injection (pen) Inject 45 Units under the skin nightly. 03/27/19 Mireya Pack NP Insulin Pen Needle (BD PEN NEEDLE KYAW U/F) 32G X 4 MM MISC For insulin administration 4 ti mes daily 11/07/18 Mireya Pack NP Lancets (ACCU-CHEK MULTICLIX) MISC 1 each by Other route 4 times daily. 11/01/18 Mireya malave NP lisinopril (PRINIVIL,ZESTRIL) 40 MG tablet Take 1 tablet by mouth Daily. 03/27/19 Mireya Pack NP meclizine (ANTIVERT) 25 mg tablet Take 1 tablet by mouth 3 times daily as needed. 03/27/19 Mireya Pack NP metFORMIN (GLUCOPHAGE) 500 mg tablet Take 1 tablet by mouth 2 times daily (with breakfast & dinner). 11/07/18 Mireya Pack NP NIFEdipine (ADALAT CC) 60 MG 24 hr tablet Take 1 tablet by mouth Daily. 11/07/18 Mireya malave NP omeprazole (PRILOSEC) 20 mg capsule [...] for mulation. Review of Systems Positive for: Hyperglycemia, chest pain, arm pain, leg pain No fever, chills, nausea or vomiting. No vision changes, difficulty breathing. No headache, abdominal pain, weakness or rash. No difficulty with urination or bowel movements. No other complaints. See HPI for further relevant details. All systems otherwise negative, except as recorded above and as recorded in the HPI. Physical Exam Vitals: 04/13/19 2042 04/13/19 2100 BP: (!) 197/93 168/80 Pulse: 80 77 Resp: 13 17 Temp: 36.2 C (97.1 F) TempSrc: Oral SpO2: 96% 96% Weight: 95.3 kg (210 lb) Height: 1.803 m (5' 11") INTERPRETATION OF VITALS Pulse Oximetry interpretation: Normal Hypertensive. Otherwise normal PHYSICAL EXAM Appearance: Alert. No acute distress. Head: Normal external exam. Eyes: EOMI, PERRL, no scleral icterus. ENT: Normal external ENT inspection. Neck: Supple. FROM. CVS: Normal heart rate and rhythm. Heart sounds normal. Pulses normal. Reproducible tenderness of the left chest wall without deformity, ecchymosis or erythema. Respiratory: No respiratory distress. No wheezing, rales, or rhonchi. Abdomen: Non-distended.Soft and nontender. No rebound or guarding. Genitourinary: Deferred. Back: Moves without difficulty. Skin: Skin warm and dry. Extremities: No deformity. No significant lower extremity edema. Neurological: Moves all extremities. No gross deficit. Medical Decision Making and Emergency Department Course ED Department Course: 8:40 PM Norah Guzman is a 63 y.o. male who presents with a chief complaint of hyperglycemia, chest pain, left arm pain, right leg pain. We will repeat screening labs, ECG.. ECG shows normal sinus rhythm at 72 bpm. Morphology similar to the previous 3 ECGs in our system. X-ray unremarkable. Labs without evidence of diabetic ketoacidosis. Troponin remains negative with no signific ant change compared with earlier today.. Blood glucose slightly elevated but patient has no symptoms such as polydipsia, polyuria. I do not feel that emergently dropping his blood haynes gar will be beneficial for the patient in the short or the long-term. Advise he needs to ke ep a blood glucose journal as well as dosing for discussion with his primary care provider w ramila is prescribing his insulin. They will be able to more appropriately adjust his medicatio ns. On reevaluation patient is comfortable. He denies any current discomfort. At this time I feel the patient is stable for outpatient management with close follow-up.Ty pical anticipatory guidelines and strict return to Emergency Department precautions have bee n given. All involved are understanding of and in agreement with this plan. All questions kelley ve been addressed to the best of my ability. Medications provided during ED visit Medications aspirin chewable tablet 324 mg (0 mg Oral Hold 04/13/192103) Records Reviewed Old medical records. Previous electrocardiograms. Nursing notes. Previous radiology studies. Laboratory Evaluation Results Procedure Component Value Ref Range Date/Time Protime INR [[id number]] Collected: 04/13/192101 Order Status: Completed Specimen: Blood Updated: 04/13/192137 INR 0.9 PTT [[id number]] Collected: 04/13/192101 Order Status: Completed Specimen: Blood Updated: 04/13/192137 PTT 26 23 - 32 seconds Comprehensive Metabolic Panel [[id number]] (Abnormal) Collected: 04/13/192101 Order Status: Completed Specimen: Blood Updated: 04/13/192130 Na 137 135 - 145 mmol/L K 3.8 3.5 - 4.9 mmol/L Cl 103 99 - 109 mmol/L CO2 26 23 - 32 mmol/L Anion Gap 12 5 - 20 mmol/L Glucose 319 65 - 99 mg/dL BUN 14 8 - 25 mg/dL Creatinine 0.83 0.70 - 1.30 mg/dL BUN/Creatinine Ratio 17 Calcium 8.8 8.5 - 10.5 mg/dL Protein, Total 5.9 6.3 - 8.2 g/dL Albumin 3.5 3.3 - 4.8 g/dL Globulin 2.4 1.3 - 4.9 g/dL A/G Ratio 1.5 1.0 - 2.4 BILIRUBIN, TOTAL 0.3 0.1 - 1.5 mg/dL ALK PHOS 141 35 - 115 U/L AST 23 10 - 45 U/L ALT 16 10 - 65 U/L Estimated GFR >60 >60 mL/min/1.73m2 Troponin I [[id number]] Collected: 04/13/192101 Order Status: Completed Specimen: Blood Updated: 04/13/192130 Troponin I 0.018 0.00 - 0.04 ng/mL Ketones, Serum [[id number]] Collected: 04/13/192101 Order Status: Completed Specimen: Blood Updated: 04/13/192123 Ketones, Blood NEGATIVE NEG CBC with Differential [[id number]] (Abnormal) Collected: 04/13/192101 Order Status: Completed Specimen: Blood Updated: 04/13/192112 WBC 8.34 3.80 - 11.00 K/uL RBC 4.90 4.20 - 5.70 M/uL Hemoglobin 14.1 13.2 - 17.0 g/dL Hematocrit 40.5 39.0 - 50.0 % MCV 82.7 80.0 - 100.0 fl MCH 28.8 27.0 - 34.0 pg MCHC 34.8 32.0 - 35.5 g/dL RDW-SD 39.2 37 - 53 fl Platelet Count 220 150 - 400 K/uL MPV 9.8 fl Diff Type AUTOMATED % nRBC 0.0 0 /100WBC % Neutrophils 44.50 % IMMATURE GRANULOCYTE 0.50 % % Lymphocytes 38.00 % Monocyte % 11.40 % Eosinophils % 4.90 % Basophils % 0.70 % Neutrophils, Absolute 3.71 1.90 - 7.40 K/uL IMMATURE GRANS AB 0.04 0.00 - 0.07 K/uL Absolute Lymphocytes 3.17 1.00 - 3.90 K/uL Absolute Monocytes 0.95 0.00 - 0.80 K/uL Eosinophils, Absolute 0.41 0.00 - 0.50 K/uL Basophils, Absolute 0.06 0.00 - 0.10 K/uL Lab Interpretation I have reviewed lab results from the emergency department workup and abnormal results have been posted to the chart. Pertinent positive and negative findings have been addressed appr opriately. Radiology and ECG Evaluation Xr Chest Pa And Lateral Result Date: 04/13/2019 CHEST PA AND LATERAL CLINICAL INFORMATION: chest pain COMPARISON: XR CHEST PA AND LATERAL ( 04/04/2019); XR CHEST PA AND LATERAL (03/21/2019); XR CHEST PA AND LATERAL (12/12/2018); FINDIN GS: Heart, lungs and vessels normal. No pneumothorax, pleural effusion or adenopathy. No sig nificant bone abnormality. Negative chest. Signed by: Irina Guzman, Bhavin Sign Date/Time: 04/13/2019 9:12 PM ECG from 2054: Sinus rhythm at 72 bpm. VT, QRS, QT, and axis are normal. No ST segment crista vations or depression. No significant Q waves. Good R wave progression through the precordia l leads. Meets No STEMI criteria for ischemia. In comparison with his last threee ECGs the re are no significant changes. This study has been independently viewed and interpreted by me. Diagnosis: 1. Type 2 diabetes mellitus with hyperglycemia, with long-term current use of insulin (HCC) 2. Atypical chest pain Disposition: ED Disposition ED Disposition Condition Comment Discharge Stable Follow up: Follow-up Information Schedule an appointment as soon as possible for a visit with Mireya Pack NP. Specialty: Nurse Practitioner - Primary Care Contact information: [address] [place] [facility] [id number] [facility]. Specialty: Emergency Medicine Why: If symptoms worsen Contact information: [address] [facility] [address] Discharge Medications: ED Prescriptions None This document has been prepared with a voice recognition system. The possibility of "sound alike" yacht builder errors, addition and/or deletions may occur. If there is any question p lease contact the author of the document. Procedures Norah Barker MD 04/13/19 2145 Germaine Castillo RN - 04/13/2019 8:40 PM PSTBed: [id number] Expected date: Expected time: Means of arrival: Comments: CP 1722 documented in t his encounter Plan of Treatment +--------+ + + + + | Date | Type | Specialty | Care Team | Description | +--------+ + + + + | 10/16/ | Anti-coag | Anticoagulation | Brittany Zaragoza | | 2019 | visit | | [address] | | | | | | [place], | | | | | | [place] [address] | | | | | | [phone] | | | | | | | | +--------+ + + + + + +------+--------+ + + | Name | Type | Priori | Associated Diagnoses | Date/Time | | | | ty | | | + +------+--------+ + + | ED INFORMATION | COLTON | Routin | | 04/13/2019 8:40 PM | | EXCHANGE | | e | | PST | + +------+--------+ + + documented as of this encounter Procedures + +--------+ + + + | Procedure Name | Priori | Date/Time | Associated Diagnosis | Comments | | | ty | | | | + +--------+ + + + | XR CHEST PA AND | STAT | 04/13/2019 | | Results for this | | LATERAL | | 9:10 PM | | procedure are in the | | | | PST | | results section. | + +--------+ + + + | TROPONIN I | Routin | 04/13/2019 | | Results for this | | | e | 9:02 PM | | procedure are in the | | | | PST | | results section. | + +--------+ + + + | KETONES,SERUM | STAT | 04/13/2019 | | Results for this | | | | 9:02 PM | | procedure are in the | | | | PST | | results section. | + +--------+ + + + | PTT | STAT | 04/13/2019 | | Results for this | | | | 9:02 PM | | procedure are in the | | | | PST | | results section. | + +--------+ + + + | PROTIME INR | STAT | 04/13/2019 | | Results for this | | | | 9:02 PM | | procedure are in the | | | | PST | | results section. | + +--------+ + + + | CBC WITH | STAT | 04/13/2019 | | Results for this | | DIFFERENTIAL | | 9:02 PM | | procedure are in the | | | | PST | | results section. | + +--------+ + + + | COMPREHENSIVE | STAT | 04/13/2019 | | Results for this | | METABOLIC PANEL | | 9:02 PM | | procedure are in the | | | | PST | | results section. | + +--------+ + + + | ECG 12 LEAD | STAT | 04/13/2019 | | Results for this | | | | 8:55 PM | | procedure are in the | | | | PST | | results section. | + +--------+ + + + | ED INFORMATION | Routin | 04/13/2019 | | | | EXCHANGE | e | 8:40 PM | | | | | | PST | | | + +--------+ + + + +---+--------+ | | | | | Proced | | | ure | | | Note - | | | Richard, | | | Lab In | | | | | | Hlseve | | | n - | | | 04/12/ | | | 2019 | | | 8:41 | | | PM PST | | [...] | | | 0 | | | 20:40? | | | SIMÓN, | | | NORAH | | | | | | M?MRN: | | | | | | [id number] | | | [id number] | | | riteri | | | [...] | | | Center | | | 17 0 | | | [place] | | [...] | | | Pain | | | Mar | | | 7, | | [...] | | [facility] | | | [place] | | | [place] | | | [...] | | [facility] [place] | | | [place] | | | [place] | | | [...] | | | ter | | | Recent | | | [...] | | | [place] | | | Vice President Pharmacy | | | al | | | [...] | | | /notif | | | [id number] | | | [id number] | | | [id number] | | | [id number] | | | [id number] | | | [id number] | | | 87 | | | PLEASE | | | [...] encounter Results XR Chest PA and Lateral (04/13/2019 9:10 PM PST) + + | Specimen | + + | | + + + + + | Impressions | Performed At | + + + | Negative chest. Signed by: Irina Guzman, Bhavin Sign | [facility] | | Date/Time: 04/13/2019 9:12 PM | | + + + + + + | Narrative | Performed At | + + + | CHEST PA AND LATERAL CLINICAL INFORMATION: chest pain | [facility] | | COMPARISON: XR CHEST PA AND LATERAL (04/04/2019); XR CHEST PA AND | | | LATERAL (03/21/2019); XR CHEST PA AND LATERAL (12/12/2018); | | | FINDINGS: Heart, lungs and vessels normal. No pneumothorax, pleural | | | effusion or adenopathy. No significant bone abnormality. | | + + + + + | Procedure Note | + + | Richard, Rad Results In - 04/13/2019 9:15 PM PST | | CHEST PA AND LATERAL | | | | CLINICAL INFORMATION: | | chest pain | | | | COMPARISON: | | XR CHEST PA AND LATERAL (04/04/2019); XR CHEST PA AND LATERAL | | (03/21/2019); XR CHEST PA AND LATERAL (12/12/2018); | | | | FINDINGS: | | Heart, lungs and vessels normal. No pneumothorax, pleural effusion or | | adenopathy. No significant bone abnormality. | | | | IMPRESSION: | | Negative chest. | | | | | | | | Signed by: GuzmanIrina Shawn | | Sign Date/Time: 04/13/2019 9:12 PM | + + + +---------+ + + | Performing | Address | City/State/Zipcode | Phone Number | | Organization | | | | + +---------+ + + | [facility] | | | | + +---------+ + + Ketones, Serum (04/13/2019 9:02 PM PST) + + + + + + | Component | Value | Ref Range | Performed | Pathologist | | | | | At | Signature | + + + + + + | Ketones, | NEGATIVEComment: Testing | NEG | [facility] | | | Blood | performed at [facility];[address] | | LABORATORY | | | | [address];[place], [place] | | | | | | [address] | | | | + + + + + + + + | Specimen | + + | Blood | + + + + + + + | Performing | Address | City/State/Zipcode | Phone Number | | Organization | | | | + + + + + | [facility] | [address] | [place] [address] | [phone] | + + + + + Troponin I (04/13/2019 9:02 PM PST) + + + + + + | Component | Value | Ref Range | Performed | Pathologist | | | | | At | Signature | + + + + + + | Troponin I | 0.018Comment: 0.04 | 0.00 - 0.04 | [facility] | | | | ng/mL [...] at | | | | | | [facility];[address] [facility] | | | | | | [facility];[place] [address] | | | | + + + + + + + + | Specimen | + + | Blood | + + + + + + + | Performing | Address | City/State/Zipcode | Phone Number | | Organization | | | | + + + + + | [facility] | [address] | [place] [address] | [phone] | + + + + + PTT (04/13/2019 9:02 PM PST) + + + + + + | Component | Value | Ref Range | Performed | Pathologist | | | | | At | Signature | + + + + + + | PTT | 26Comment: Testing | 23 - 32 seconds | LUIS ALBERTO | | | | performed at [facility];[address] | | LABORATORY | | | | [address];[place], [place] | | | | | | [address] | | | | + + + + + + + + | Specimen | + + | Blood | + + + + + + + | Performing | Address | City/State/Zipcode | Phone Number | | Organization | | | | + + + + + | [facility] | [address] | [place] [address] | [phone] | + + + + + Protime INR (04/13/2019 9:02 PM PST) + + + + + + | Component | Value | Ref Range | Performed | Pathologist | | | | | At | Signature | + + + + + + | INR | 0.9Comment: REFERENCE | | [facility] | | | | RANGE:0.9 - 1.2 [...] performed at [facility] | | | | | | [facility];[place], [place] | | | | | | [address] | | | | + + + + + + + + | Specimen | + + | Blood | + + + + + + + | Performing | Address | City/State/Zipcode | Phone Number | | Organization | | | | + + + + + | [facility] | [address] | [place] [address] | [phone] | + + + + + Comprehensive Metabolic Panel (04/13/2019 9:02 PM PST) + + + + + [...] + + + + | Glucose | 319 (H) | 65 - 99 mg/dL | [facility] | | | | | | LABORATORY | | + + + + + + | BUN | 14 | 8 - 25 mg/dL | [facility] | | | | | | LABORATORY | | + + + + + + | Creatinine | 0.83 | 0.70 - 1.30 | [facility] | | | | | mg/dL | LABORATORY | | + + + + + + | BUN/Creatin | 17 | | [facility] | | | ine Ratio | | | LABORATORY | | + + + + + + | Calcium | 8.8 | 8.5 - 10.5 | [facility] | | | | | mg/dL | LABORATORY | | + + + + + + | Protein, | 5.9 (L) | 6.3 - 8.2 g/dL | [facility] | | | Total | | | LABORATORY | | + + + + + + | Albumin | 3.5 | 3.3 - 4.8 g/dL | [facility] [...] + + + | ALK PHOS | 141 (H) | 35 - 115 U/L | [...] | >60Comment: GFR <60: | >60 | [facility] | | | GFR | [...] | | | | | | MDRD [facility] traceable | | | | | | equation.Testing | | | | | | performed at [facility] | | | | | | [facility];[place], [place] | | | | | | [address] | | | | + + + + + + + + | Specimen | + + | Blood | + + + + + + + | Performing | Address | City/State/Zipcode | Phone Number | | Organization | | | | + + + + + | [facility] | [address] | [place] [address] | [phone] | + + + + + CBC with Differential (04/13/2019 9:02 PM PST) + + + + + + | Component | Value | Ref Range | Performed | Pathologist | | | | | At | Signature | + + + + + + | WBC | 8.34 | 3.80 - 11.00 | [facility] | | | | | K/uL | LABORATORY | | + + + + + + | Red Blood | 4.90 | 4.20 - 5.70 | [facility] | | | Cells | | M/uL | LABORATORY | | + + + + + + | Hemoglobin | 14.1 | 13.2 - 17.0 | [facility] | | | | | g/dL | LABORATORY | | + + + + + + | Hematocrit | 40.5 | 39.0 - 50.0 % | [facility] [...] + + + + | RDW-SD | 39.2 | 37 - 53 fl | [facility] | | | | | | LABORATORY | | + + + + + + | Platelet | 220 | 150 - 400 K/uL | [facility] [...] + + + + | % | 44.50 | % | [facility] | | | Neutrophils | | | LABORATORY | | + + + + + + | IMMATURE | 0.50 | % | [facility] | | | GRANULOCYTE | | | LABORATORY | | + + + + + + | % | 38.00 | % | [facility] | | | Lymphocytes | | | LABORATORY | | + + + + + + | Monocyte % | 11.40 | % | [facility] | | | | | | LABORATORY | | + + + + + + | Eosinophils | 4.90 | % | [facility] | | | % | | | LABORATORY | | + + + + + + | Basophils % | 0.70 | % | [facility] | | | | | | LABORATORY | | + + + + + + | Neutrophils | 3.71 | 1.90 - 7.40 | [facility] | | | , Absolute | | K/uL | LABORATORY | | + + + + + + | IMMATURE | 0.04Comment: NOTE NEW | 0.00 - 0.07 | [facility] | | | GRANS AB | REFERENCE RANGE | K/uL | LABORATORY | | + + + + + + | Absolute | 3.17 | 1.00 - 3.90 | [facility] | [...] | | | Absolute | performed at [facility];[address] | K/uL | LABORATORY | | | | [address];[place], [place] | | | | | | [address] | | | | + + + + + + + + | Specimen | + + | Blood | + + + + + + + | Performing | Address | City/State/Zipcode | Phone Number | | Organization | | | | + + + + + | [facility] | [address] | [place] [address] | [phone] | + + + + + ECG 12 lead (04/13/2019 8:55 PM PST) + + + + + + | Component | Value | Ref Range | Performed | Pathologist | | | | | At | Signature | + + + + + + | VENTRICULAR | 72 | BPM | [facility] | | | RATE EKG | | | | | + + + + + + | ATRIAL RATE | 72 | BPM | [facility] | | + + + + + + | P-R | 166 | ms | [facility] | | | INTERVAL | | | | | + + + + + + | QRS | 86 | ms | [facility] | | | DURATION | | | | | + + + + + + | Q-T | 378 | ms | [facility] | | | INTERVAL | | | | | + + + + + + | Q-T | 413 | ms | [facility] | | | INTERVAL | | | | | | (CORRECTED) | | | | | + + + + + + | P WAVE AXIS | 35 | degrees | [facility] | | + + + + + + | QRS AXIS | 44 | degrees | [facility] | | + + + + + + | T AXIS | -54 | degrees | [facility] | | + + + + + + | INTERPRETAT | Normal sinus rhythmT | | [facility] | | | ION TEXT | wave abnormality, | | | | | | consider inferior | | | | | | ischemiaAbnormal ECGWhen | | | | | | compared with ECG of | | | | | | -APR-2019 | | | | | | 09:07,Inverted T waves | | | | | [...] | | | | | ONLY, -COMPUTER (804), | | | | | | development editor Uriel Simms | | | | | | (132) on 04/15/2019 | | | | | | 2:10:37 PM | | | | + + [...] (HCC) - Primary | + + | Atypical chest pain Other chest pain | + + documented in this encounter
--- OUTSIDE RECORDS SUMMARY | ~2019-10-12 | XMS | Encounter Summary ---
Demographics + + + | Address | [address] | | | [place] [address] | + + + | Home Phone [...] + | Sammi Kohler | ECON | [place] [address] | | + + + + + Care Team Providers + +------+ + | Care Migration Agent Name | Role | Phone | + +------+ + PCP | Unavailable | + +------+ + Encounter Details +--------+ + + + + | Date | Type | Department | Care Team | Description | +--------+ + + + + | 02/09/ | Emergency | [facility] | Kevyn Don, | Abdominal pain; | | 2014 | | [facility] | [facility] | Elevated blood | | | | [facility] | [place], [place] | pressure | | | | [address] | [address] | | | | | [place], [place] | | | | | | [address] | | | | | | [phone] | | | +--------+ + + + [...] as of this encounter ED Notes Kenrick Badillo, Provider Unknown - 02/09/2013 5:16 PM PSTFormatting of this note m ight be different from the original. ED Notes by Mary Martin RN at 02/09/131715 Author: Mary Martin RN Service: (none) Author Type: Registered Nurse Filed: 02/09/131716 Date of Service: 02/09/131715 Status: Signed Head Piece Assembler: Mary Martin RN (Registered Nurse) Pt. Calling family/friend for ride home at this time. Mary Martin RN 02/09/131716 onver ivana Transaction, Provider Unknown - 02/09/2013 4:11 PM PST ED Notes by Maribeth Lew RN at 02/09/13 161 Author: Maribeth Lew RN Service: (none) Author Type: Registered Nurse Filed: 02/09/131610 Date of Service: 02/09/131610 Status: Signed Head Piece Assembler: Maribeth Lew RN (Registered Nurse) MD at bedside Maribeth Lew RN 02/09/131610 axKevyn daly MD - 02/09/2013 3:54 PM PST ED Provider Notes by Kevyn Don MD at 02/09/131553 Author: Kevyn Don MD Service: (none) Author Type: Physician Filed: 02/09/132122 Date of Service: 02/09/131553 Status: Signed Head Piece Assembler: Kevyn Don MD (Physician) [facility] Department of Emergency Medicine History of Present Illness Kevyn Guzman is a 57 y.o. male presenting with abdominal pain for 24 hours. Patient infor mation was obtained from patient and past medical records. History/Exam limitations: none. Patient presented to the Emergency Department [facility] [employer] [place] [facility]. 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 Psych: Appropriate affect, no [...] (stopping or starting) be reviewed with the [facility] doctor as this is not in my purview as an Emergency Department physician 17:32. Workup is negative at this time. Will discharge home. [facility] the [facility], I have reviewed my [...] Value Ref Range Date/Time Complete Metabolic Panel [[id number]] (Abnormal) Collected:02/09/13 163 Order Status:Completed Updated:02/09/13 1706 Specimen Information:Blood SODIUM 140 135 - 143 [...] EGFR 51 (L) >60 mL/min/1.73m2 Urine Microscopic [[id number]] (Abnormal) Collected:02/09/13 1615 Order Status:Completed Updated:02/09/13 165 Specimen Information:Urine / Urine, Clean Catch WBC 1-5 0 - 5 /hpf RBC 0-2 0 - 2 /hpf EPITHELIAL 6-10 /lpf BACTERIA 1+ (A) NONE SEEN Mucus, UA 1+ CBC w Auto Diff [[id number]] (Abnormal) Collected:02/09/13 163 Order Status:Completed Updated:02/09/13 164 [...] 0 - 0.1 K/uL POC clinitek 10 [[id number]] (Abnormal) Collected:02/09/13 1619 Order Status:Completed Updated:02/09/13 1622 [...] at 16:11 Rhythm: Sinus Ventricular Rate: 64 MN Interval: Normal ST Segments: Normal Significant Q-waves: None Blocks: None [place]: Normal Additional Comments: No acute ischemia ED Diagnoses Final diagnoses Abdominal pain Elevated blood pressure Disposition: ED Disposition Discharge Condition at discharge: Stable . Follow-up Information Follow up With Details Comments Contact Info Jerrell Gutiérrez DO Schedule an appointment as soon as possible for a visit [phone] [phone] Discharge Medications: New Prescriptions No new medications [...] treatment Additional Documentation Procedures Kevyn Don MD 02/09/13 4641 onversion Transact ion, Provider Unknown - 02/09/2013 3:41 PM PSTFormatting of this note might be different fr om the original. ED Notes by Maribeth Lew RN at 02/09/131540 Author: Maribeth Lew RN Service: (none) Author Type: Registered Nurse Filed: 02/09/13 154 Date of Service: 02/09/131540 Status: Signed Head Piece Assembler: Maribeth Lew RN (Registered Nurse) Patient states [...] 02/09/131534 Date of Service: 02/09/131534 Status: Signed Head Piece Assembler: Tona Vick RN (Registered Nurse) Bed:11
Expected date:
Expected time:
Means of arrival:
Comments:
docume nted in this encounter Plan of Treatment +--------+ + + + + | Date | Type | Specialty | Care Team | Description | +--------+ + + + + | 10/16/ | Anti-coag | Anticoagulation | LeeladanielBrittany | | | 2020 | visit | | [address] | | | | | | [place], | | | | | | [place] [address] | | | | | | [phone] | | | | | | | | +--------+ + + + + documented as of this encounter Procedures + +--------+ + + + | Procedure Name | Priori | Date/Time | Associated Diagnosis | Comments | | | ty | | | | + +--------+ + + + | EXTERNAL LAB: [facility] | Routin | 02/09/2013 | | Results [...] in this encounter Results External Lab: [facility] (02/09/2013 4:33 PM PST) + + + + + + | Component | Value | Ref Range | Performed | Pathologist | | | | | At | Signature | + + + + + + | WBC | 9.7Comment: Testing | 3.8 - 11.0 K/uL | EXTERNAL | | | | performed [place] [facility] | | LAB | | | | [address];[place] | | | | | | [address] | | | | + + + + + + | Non- | 5.18Comment: Testing | 4.20 - 5.70 | EXTERNAL | | | Red Blood | performed at [facility] [place] | M/uL | LAB | | | Cells | [address];[place] | | | | | Counted | [address] | | | | + + + + + + | Hemoglobin | 13.7Comment: Testing | 13.2 - 17.0 | EXTERNAL | | | | performed at [facility] | g/dL | LAB | | | | [address];[place] | | | | | | [address] | | | | + + + + + + | Hematocrit, | 41.6Comment: Testing | 39.0 - 50.0 % | EXTERNAL | | | POC | performed at [facility] | | LAB | | | | [address] | | | | | | [address] | | | | + + + + + + | MCV | 80.3Comment: Testing | 80.0 - 100.0 fl | EXTERNAL | | | | performed at [facility] [place] | | LAB | | | | [address] | | | | | | [address] | | | | + + + + + + | MCH | 26.4 (L)Comment: Testing | 27.0 - 34.0 pg | EXTERNAL | | | | performed at [facility] | | LAB | | | | [address] | | | | | | [address] | | | | + + + + + + | MCHC | 32.9Comment: Testing | 32.0 - 35.5 | EXTERNAL | | | | performed at [facility] | g/dL | LAB | | | | [address] | | | | | | [address] | | | | + + + + + + | RDW-CV | 46.8Comment: Testing | 37 - 53 fl | EXTERNAL | | | | performed at [facility] | | LAB | | | | [address] | | | | | | [address] | | | | + + + + + + | Platelet | 279Comment: Testing | 150 - 400 K/uL | EXTERNAL | | | Count | performed at [facility] [place] [place] | | LAB | | | Plasma | [address] | | | | | | [address] | | | | + + + + + + | MPV | 7.5Comment: Testing | fl | EXTERNAL | | | | performed at [facility] [place] | | LAB | | | | [address] | | | | | | [address] | | | | + + + + + + | Differentia | AUTOMATEDComment: | | EXTERNAL | | | l Type | Testing performed at | | LAB | | | | [facility] [place];[place] [address] | | | | + + + [...] EXTERNAL | | | | performed at [facility] | mmol/L | LAB | | | | [address] | | | | | | [address] | | | | + + + + + + | K | 3.7Comment: Testing | 3.5 - 4.9 | EXTERNAL | | | | performed at [facility] [place] [place] | mmol/L | LAB | | | | [address] | | | | | | [address] | | | | + + + + + + | Cl | 101Comment: Testing | 99 - 109 mmol/L | EXTERNAL | | | | performed at [facility] [place] [place] | | LAB | | | | [address] | | | | | | [address] | | | | + + + + + + | CO2 | 33 (H)Comment: Testing | 23 - 32 mmol/L | EXTERNAL | | | | performed at [facility] | | LAB | | | | [address] | | | | | | [address] | | | | + + + + + + | Anion Gap | 9Comment: Testing | 5 - 20 mmol/L | EXTERNAL | | | | performed at [facility] [place] [place] | | LAB | | | | [address] | | | | | | [address] | | | | + + + + + + | Glucose, | 217 (H)Comment: Testing | 65 - 99 mg/dL | EXTERNAL | | | Fasting | performed at [facility] [place] [place] | | LAB | | | | [address] | | | | | | [address] | | | | + + + + + + | BUN | 19Comment: Testing | 8 - 25 mg/dL | EXTERNAL | | | | performed at [facility] | | LAB | | | | [address] | | | | | | [address] | | | | + + + + + + | Creatinine | 1.50 (H)Comment: Testing | 0.70 - 1.30 | EXTERNAL | | | | performed at [facility] [place] | mg/dL | LAB | | | | [address] | | | | | | [address] | | | | + + + + + + | BUN/Creatin | 13Comment: Testing | | EXTERNAL | | | ine Ratio | performed at [facility] [place] [place] | | LAB | | | | [address] | | | | | | [address] | | | | + + + + + + | Calcium | 9.4Comment: Testing | 8.5 - 10.2 | EXTERNAL | | | | performed at [facility] [place] | mg/dL | LAB | | | | [address] | | | | | | [address] | | | | + + + + + + | Protein, | 7.4Comment: Testing | 6.3 - 8.2 g/dL | EXTERNAL | | | Total | performed at [facility] [place] [place] | | LAB | | | | [address] | | | | | | [address] | | | | + + + + + + | Albumin | 3.4 (L)Comment: Testing | 3.6 - 5.0 g/dL | EXTERNAL | | | | performed at [facility] [place] | | LAB | | | | [address] | | | | | | [address] | | | | + + + + + + | Globulin | 4.0Comment: Testing | 1.3 - 4.9 g/dL | EXTERNAL | | | | performed at [facility] [place] | | LAB | | | | [address] | | | | | | [address] | | | | + + + + + + | A/G Ratio | 0.8 (L)Comment: Testing | 1.0 - 2.4 | EXTERNAL | | | | performed at [facility] [place] | | LAB | | | | [address] | | | | | | [address] | | | | + + + + + + | Bilirubin | 0.3Comment: Testing | 0.1 - 1.5 mg/dL | EXTERNAL | | | Total | performed at [facility] [place] | | LAB | | | | [address] | | | | | | [address] | | | | + + + + + + | ALP, | 106Comment: Testing | 35 - 115 U/L | EXTERNAL | | | External | performed at [facility] [place] | | LAB | | | | [address] | | | | | | [address] | | | | + + + + + + | AST | 25Comment: Testing | 10 - 45 U/L | EXTERNAL | | | | performed at [facility] | | LAB | | | | [address] | | | | | | [address] | | | | + + + + + + | ALT | 29Comment: Testing | 10 - 65 U/L | EXTERNAL | | | | performed at [facility] | | LAB | | | | [address] [facility];[place], [place] | | | | | | [address] | | | | + + + [...] | | | | | | at [facility];[address];[place] [address] | | | | + + + [...] EXTERNAL | | | | performed at [facility] | | LAB | | | | [address];[place] | | | | | | [address] | | | | + + + + + + | RBC, UA | 0-2Comment: Testing | 0 - 2 /hpf | EXTERNAL | | | | performed at [facility] | | LAB | | | | [address] | | | | | | [address] | | | | + + + + + + | Epithelial | 6-10Comment: Testing | /lpf | EXTERNAL | | | Cells | performed at [facility] [place] | | LAB | | | | [address] | | | | | | [address] | | | | + + + + + + | Bacteria, | 1+ (A)Comment: Testing | | EXTERNAL | | | UA | performed at [facility] [place] | | LAB | | | | [address] | | | | | | [address] | | | | + + + [...] | | | | | | editorial clerk SANYA ALDANA (8) | | | | [...]
--- OUTSIDE RECORDS SUMMARY | ~2019-10-12 | XMS | Encounter Summary ---
Demographics + + + | Address | [address] | | | [place] [address] | + + + | Home Phone [...] + | Sammi Kohler | ECON | [place] [address] | | + + + + + Care Team Providers + +------+ + | Care Food Broker Name | Role | Phone | + +------+ + PCP | Unavailable | + +------+ + Encounter Details +--------+ + + + + | Date | Type | Department | Care Team | Description | +--------+ + + + + | 10/23/ | Emergency | [facility] | Uriel New MD | Chest pain, | | 2018 | | MEDICAL CENTER | [address] | unspecified type; | | | | EMERGENCY CENTER | [place], [place] | CKD (chronic kidney | | | | [address] | [address] | disease) stage 3, | | | | [place], [place] | [phone] | GFR 30-59 ml/min; | | | | [address] | | Type 2 diabetes | | | | [phone] | | mellitus without | | | [...] + + + | Blood Pressure | 151/74 | 10/23/2017 12:58 PM | | | | | PDT | | + + + + + | Pulse | 70 | 10/23/2017 12:58 PM | | | | | PDT | | + + + + + | Temperature | 36.3 C (97.3 F) | 10/23/2017 12:58 PM | | | | | PDT | | + + + + + | Respiratory Rate | 18 | 10/23/2017 12:58 PM | | | | | PDT [...] documented as of this encounter ED Notes Uriel New MD - 10/23/2017 8:13 AM PDTFormatting of this note might be different from t he original. ED Provider Notes by Uriel New MD at 10/23/17812 Author: Uriel New MD Service: (none) Author Type: Physician Filed: 10/25/17 5721 Date of Service: 10/23/17812 Status: Signed Division Leader: Uriel New MD (Physician) Formerly [facility] Department of Emergency Medicine 11:29 PM History of Present Illness Patient Identification Norah Gr is a 61 y.o. male. Patient information was obtained from patient. History/Exam limitations: none. Patient presented to the Emergency Department by: Car History of Presenting Illness The patient is a 61 y.o. male presenting with Chief Complaint Patient presents with Chest Pain Location- central chest Onset- 5pm last night Duration- persistent worsening Severity and Character- squeezing 7/10 pain Worse with- exertion Better with- nothing Radiation- to left shoulder Denies- headache, vision change, sore throat, cough, shortness of breath, abdominal pain, n ausea, vomiting, diarrhea, constipation, blood in the urine or stool, rash, fever, mood glass ge Admits- chest pain, exertional sob and vomiting, occasional diarrhea Context- Pt with CP that started last night while watching TV. It is a pressure squeezing worse with walking. Vomited yesterday 3 times. Recently found to have PE and put on elequis which he states he is taking w/o fail. States went to [facility] last night and had workup and was sent home. PCP: Lou Preston Specialists: Past Medical History Diagnosis Date Acute pulmonary [...] of GE junction Hypercholesterolemia 07/08/2013 Hyperlipidemia Hypertension snf (current) use of 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 Obesity, Class I, [...] Procedure: COLONOSCOPY; Surgeon: Howie Gibson MD; Location: [facility]; Service: Gastroen terology; Laterality: N/A; ESOPHAGOGASTRODUODENOSCOPY N/A 03/03/2013 Procedure: ESOPHAGOGASTRODUODENOSCOPY; Surgeon: Howie Gibson MD; Location: [facility]; Se rvice: Gastroenterology; Laterality: N/A; HERNIA REPAIR N/A 07/03/2013 Procedure: LAPAROSCOPIC - HERNIA - INCISIONAL; Surgeon: Jevon Vargas DO; Location: [facility]; Service: General; Laterality: N/A; KNEE SURGERY rt knee, patella LEG SURGERY LLE SKIN BIOPSY SKIN CANCER EXCISION Left 10/10/2012 Procedure: EXCISION - SKIN CANCER; Surgeon: Sy Fierro MD; Location: [facility]; Service: Plastics; Laterality: Left; upper arm and upper back w/frozen section SKIN LESION EXCISION Left 05/05/2014 Procedure: EXCISION - LESION - FROZEN SECTION; Surgeon: Sy Fierro MD; Location: [facility]; Service: Plastics; Laterality: Left; forearm UNLISTED PROCEDURE ARTHROSCOPY UPPER GASTROINTESTINAL ENDOSCOPY Prior to Admission medications Medication Sig Start Date End Date Taking? Authorizing Provider apixaban (ELIQUIS) 5 MG tablet Take 1 tablet by mouth 2 (two) times daily. 10/18/17 Yes Dottie Burnham MD aspirin 81 MG tablet Take 81 mg by mouth daily. Yes Historical Provider insulin detemir (LEVEMIR) 100 UNIT/ML injection Inject 30 Units into the skin 2 (two) times daily. Inject 45 units subcutaneous at bedtime Patient taking differently: Inject 40 Units into the skin nightly. 10/18/17 Yes Bruno Mark MD lisinopril (ZESTRIL) 40 MG tablet Take 1 tablet by mouth daily for 30 days. 10/18/17 8 Yes Bruno Burnham MD NOVOLOG 100 UNIT/ML injection INJ 3U SUB-Q TID(AC) AND INJECT SUBCUTANEOUSLY PER SLIDING SC SUSAN 1-70= 2U, 71-100=3U, 101-120= 4U, 121-150=5U, 151-180=6U, 181-210= 7U, 211- Patient taking differently: Inject 15 units 3 times a day with meals 04/23/13 Yes Bang bonilla MD sulfamethoxazole-trimethoprim (BACTRIM DS) 800-160 MG per tablet Take 1 tablet by mouth cintia ry 12 (twelve) hours for 6 days. Patient taking differently: Take 1 tablet by mouth daily. 10/18/17 10/24/17 Yes Bruno Decker MD Albuterol Sulfate (VENTOLIN HFA IN) Inhale 2 puffs into the lungs as needed. 108 mcg/act Historical Provider Cfofo-K-Vojhzpyzhuown (BEANO) TABS Take 150 Units by mouth [...] 1 mg by mouth daily. Historical Provider fenofibrate (TRIGLIDE) 160 MG tablet [...] as needed fo r Itching. Historical Provider lamoTRIgine (LAMICTAL) 200 MG tablet Take 200 mg by mouth daily. Historical Provider gxwuihdgk-krifsbwy-ajopjvokv hydroxide-simethicone Take 40 mLs by mouth daily as needed. Historical Provider lithium (LITHOBID) 300 MG CR [...] (five) min utes as needed. Historical Provider omeprazole (PRILOSEC) 20 MG capsule Take 20 mg by mouth 2 (two) times daily with meals. Historical Provider ondansetron (ZOFRAN-ODT) 4 MG disintegrating tablet Take 4 mg by mouth every 6 (six) hours as needed for Nausea. Historical Provider PARoxetine (PAXIL) 20 MG tablet Take 10 mg by mouth daily. 10/06/17 Mik sanchez, DO polyethylene glycol (GLYCOLAX) powder DISSOLVE 17GM [...] daily. Histo rical Provider Allergies Allergen Reactions Nitroglycerin Hives Vitamin [...] Lives alone x 1 wk, moved from [facility], , 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 2 falls in the last 6 months. Family History Problem Relation Age of Onset Heart disease Father Heart disease Sister Diabetes type II Sister Heart Problems Brother I have personally reviewed the social history, pertinent history has been addressed. Review of Systems Complete review of systems obtained and negative except as stated above in HPI Physical Exam BP 143/71 (BP Location: Left upper arm) | Pulse 80 | Temp 97.3 F (36.3 C) (Oral) | R arlette 17 | SpO2 96% Pulse Oximetry interpretation: Normal General: Alert, in no apparent distress Head: Normocephalic, atraumatic Eyes: Normal inspection, pupils equal and round and reactive, non-icteric. EOMI ENT: External Ears normal Nose normal Moist mucous membranes Oropharynx clear Neck: Normal inspection Supple Cardiovasc: Rate and rhythm normal No murmurs 2+ pulses all 4 extremities Respiratory: Breath sounds equal bilaterally No rales, wheezing or rhonchi Abdomen: Soft, non-tender, non-distended No guarding or rebound,No peritoneal signs Genitourinary: Deferred Rectal exam: Deferred Back: Normal inspection Extremities: No swelling or redness Skin: Color normal Warm and dry No rash Neuro: Alert, no AMS No gross motor/sensory deficits Moving all extremities Psych: Normal Mood Normal judgement Medical Decision Making and Emergency Department Course ED Department Course 61 y.o. male presents to the ED with a chief complaints of chest pain. Patient was seen an d evaluated for similar last night at [facility]. Will obtain records. Differential includes, b ut is not limited to: acute UT, unstable angina, thoracic aortic dissection, pneumothorax, P E, myocarditis, pericarditis, esophagitis, musculoskeletal disorder, pleurisy, anxiety, vs o ther Review of vitals BP 143/71 (BP Location: Left upper arm) | Pulse 80 | Temp 97.3 F (36.3 C) (Oral) | Resp 17 | SpO2 96% ====EKG Interpretation==== Time: 726 Rate: NSR Rhythm: 85 [place]: Normal Intervals: Normal ST: No significant ST elevations or depressions T Waves: unchanged Other: none Compared to ekg done 10/21/17 Overall Impression: Non-specific EKG with no acute signs of ischemia Interpreted by Uriel New MD Rhythm strip analysis: NSR ====EKG Interpretation==== Time: 1236 Rate: 72 Rhythm: NSR [place]: normal Intervals: notmal ST: No significant ST elevations or depressions T Waves: Old inversions in inferior leads Other: None Compared to ekg done earlier as well as multiple earlier this month Overall Impression: Non-specific EKG with no significant changes Interpreted by Uriel New MD Rhythm strip analysis: NSR Stress test performed October 16, 2017 results: Baseline SR with non-specific ST abnormalities No ST changes during the test Confirmed by STEPHEN ESPAÑA, IYAXander ([id number]) on 10/16/2017 8:24:17 PM 10/14/17 TTE Impression 1. Left ventricular systolic function is hyperdynamic with an estimated EF of >70%. 2. There is moderate concentric left ventricular hypertrophy. 3. There is a mild resting gradient of 15 mm Hg noted in the LVOT (not evaluated with Valsa lva) which likely contributes to the measured mild gradient across the aortic valve. No EDUARDO or significant resting LVOT obstruction, but a hypertrophic cardiomyopathy cannot be exclude d. A repeat limited echocardiogram with LVOT gradient measurement with Valsalva is suggest ed (and if this is abnormal, a cardiac MRI should be considered). 4. The right ventricle is normal in size and function. The poor TR signal prevents accura te estimation of pulmonary pressures. 5. No significant valvular abnormalities are noted. Cardiac Cath 10/15/13 CONCLUSIONS AND RECOMMENDATIONS 1. Minimal atherosclerosis with big diameter vessels. 2. Normal left ventricular systolic function. 3. Recommend evaluation for nonischemic chest pain. Patient reevaluation. Patient is stable and feeling better at this time. Has eaten. He stat es that he still has some chest pain. Patient likely has stable angina. There is also a high level of anxiety. Patient just recently underwent stress test as described in his notes. De lta troponin came back negative. Discussed the patient strict return precautions but feel th at he is safe to go home at this time. I discussed all ED results and my clinical impression with the patient. Patient is ready f or discharge. Based on pt's history and exam along with workup performed in the ER I do not find any emergent or life threatening conditions. I advised patient to follow up with a PCP and we discussed the emergent signs and symptoms that would necessitate a return to ED. The patient understands and agrees with the plan. All questions and concerns addressed. Will dis charge home. ED Medication Administration from 10/23/2017 0722 to 10/23/2017 0813 Date/Time Order Dose Route Action Action by 10/23/2017 0804 aspirin chewable tablet 324 mg 324 mg Oral Not Given Denis Ramirez Records Reviewed Old medical records. Previous electrocardiograms. Nursing notes. Previous radiology studies. Laboratory Evaluation Results Procedure Component Value Ref Range Date/Time Cardiac Panel [[id number]] (Abnormal) Collected: 10/23/17 0800 Order Status: Completed Updated: 10/23/17 0835 WBC 11.79 (H) 3.80 - 11.00 K/uL RBC 4.68 4.20 - 5.70 M/uL HGB 13.3 13.2 - 17.0 g/dL HCT 38.9 (L) 39.0 - 50.0 % MCV 83.2 80.0 - 100.0 fl MCH 28.4 27.0 - 34.0 pg MCHC 34.1 32.0 - 35.5 g/dL RDW SD 45.1 37 - 53 fl PLT 288 150 - 400 K/uL MPV 7.5 fl DIFF TYPE AUTOMATED NEUTROPHILS 65.86 % LYMPHOCYTES 20.58 % MONOCYTES 10.65 % EOSINOPHILS 2.38 % BASOPHILS 0.53 % NEUTROPHILS ABS 7.77 (H) 1.90 - 7.40 K/uL LYMPHOCYTES ABS 2.43 1.00 - 3.90 K/uL MONOCYTES ABS 1.26 (H) 0.00 - 0.80 K/uL EOSINOPHILS ABS 0.28 0.00 - 0.50 K/uL BASOPHILS ABS 0.06 0.00 - 0.10 K/uL SODIUM 136 135 - 145 mmol/L POTASSIUM 4.4 3.5 - 4.9 mmol/L CHLORIDE 104 99 - 109 mmol/L CO2 23 23 - 32 mmol/L ANION GAP AGAP 14 5 - 20 mmol/L GLUCOSE 333 (H) 65 - 99 mg/dL BUN 27 (H) 8 - 25 mg/dL CREATININE 1.4 (H) 0.70 - 1.30 mg/dL BUN/CREAT 19 CALCIUM 9.3 8.5 - 10.5 mg/dL TOTAL PROTEIN 7.6 6.3 - 8.2 g/dL Albumin 3.2 (L) 3.3 - 4.8 g/dL GLOBULIN 4.5 1.3 - 4.9 g/dL A/G 0.7 (L) 1.0 - 2.4 TBIL 0.4 0.1 - 1.5 mg/dL ALK PHOS 98 35 - 115 U/L AST 16 10 - 45 U/L ALT 20 10 - 65 U/L EGFR 51 (L) >60 mL/min/1.73m2 CPK 72 55 - 400 U/L INR 1.1 APTT 27 23 - 32 seconds MMB 1.4 0.5 - 3.6 ng/mL CK-MB Index 1.9 Troponin I [[id number]] Collected: 10/23/17 0800 Order Status: Completed Updated: 10/23/17 0835 TROPONIN I <0.020 0.00 - 0.10 ng/mL POC cardiac troponin [[id number]] Collected: 10/23/17 0748 Order Status: Completed Updated: 10/23/17 0815 POC CARDIAC TROPONIN 0.00 0.00 - 0.10 ng/mL I personally reviewed the lab results and they have been posted to the chart. Pertinent po sitive and negative findings have been addressed appropriately and I have discussed any abno rmal labs with the patient. Radiology and EKG Evaluation Imaging Results CT Chest PE Protocol (Final result) Result time 10/23/17 09:23:20 Final result by Bhavin Gr MD (10/23/17 09:23:20) Impression: 1. Minimal strandy change within the right lower lobe pulmonary artery, stable from the 2 previous studies dating back to 10/13/17, but new from 12/27/14. This probably represents c hronic changes from a previous small embolus. 2. No evidence of acute pulmonary embolus. Narrative: HISTORY: Chest pain. Question pulmonary embolus. COMPARISON: 10/20/17 CTA chest. 10/13/17 CTA chest. 12/27/14 CTA chest. TECHNIQUE: Axial 0.[address] images using automated exposure control were acquired thro [facility] the chest according to a CT angiography protocol. Multiplanar CT angiographic MIP recon structions were performed from the arterial phase data set. 3-D reconstructions were perfor med using the [employer] 3-D software and sent to PACS. IV contrast: 69 mL IsoVue 370 FINDINGS: There is no evidence of acute pulmonary embolus. Minimal strandy change in the right lower lobe pulmonary artery sequence 5 image 144, stable from 10/21/79, 10/13/17, but new from . No infiltrates or effusions. No hilar or mediastinal adenopathy. Thoracic aorta unrem arkable. No dissection. Scans through the upper abdomen are unremarkable. Esophagus unremarkable. Bone windows show mild spondylotic changes of the spine. XR Chest PA and Lateral (Final result) Result time 10/23/17 08:42:14 Final result by Kishan Ji MD (10/23/17 08:42:14) Impression: 1. No acute cardiopulmonary process. Narrative: NORAH GR 1955 61 years Male XR CHEST 2 VIEW FRONTAL AND LATERAL 10/23/2017 8:36 AM INDICATION: Acute chest pain COMPARISON: 10/20/2017 TECHNIQUE: Two view chest, PA and lateral views FINDINGS: The cardiomediastinal contours are normal. There is no mediastinal widening or s hift. No pneumothorax or effusion. The lungs are clear with no focal consolidation or pulm onary nodules. 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 ED Diagnoses Final diagnoses Chest pain, unspecified type CKD (chronic kidney disease) stage 3, GFR 30-59 ml/min Type 2 diabetes mellitus without complication, with long-term current use of insulin (HCC) Disposition: ED Disposition ED Disposition Condition Comment Discharge Stable Follow-up Information Follow up With Specialties Details Why Contact Carine Preston call your regular doctor for a follow-up appointment in the next 1-2 days. Formerly [facility] Emergency Department Emergency Medicine As needed, If symp toms worsen [address] [facility] [id number] Discharge Medications: Discharge Medication List as of 10/23/2017 1:12 PM Procedures Additional Documentation Procedures Uriel New MD 10/25/17 2168 onversion Transaction, Provider Unknown - 10/23/2017 7:51 AM PDTFormatting of this note might be different from t he original. ED Notes by Dianna Mcdermott RN at 10/23/17750 Author: Dianna Mcdermott RN Service: (none) Author Type: Registered Nurse Filed: 10/23/17751 Date of Service: 10/23/17750 Status: Signed Division Leader: Dianna Mcdermott RN (Registered Nurse) Pt c/o CP went to [facility] lastnight was sent home. Pt states Cp since 5pm yesterday, was wa tching tv. States Nothing made pain better including "stress" pill. Dianna Mcdermott RN 10/23/17751 docume nted in this encounter Plan of Treatment +--------+ + + + + | Date | Type | Specialty | Care Team | Description | +--------+ + + + + | 10/16/ | Anti-coag | Anticoagulation | Brittany Zaragoza | | | 2020 | visit | | [address] | | | | | | [place], | | | | | | [place] [address] | | | | | | [phone] | | | | | | | | +--------+ + + + + documented as of this encounter Procedures + +--------+ + + + | Procedure Name | Priori | Date/Time | Associated Diagnosis | Comments | | | ty | | | | + +--------+ + + + | ECG 12 LEAD | Routin | 10/23/2017 | | Results for this | | | e | 12:36 PM | | procedure are in the | | | | PDT | | results section. | + +--------+ + + + | POC GLUCOSE | Routin | 10/23/2017 | | Results for this | | | e | 11:25 AM | | procedure are in the | | | | PDT | | results section. | + +--------+ + + + | CT ANGIOGRAM | Routin | 10/23/2017 | | Results for this | | PULMONARY | e | 8:59 AM | | procedure are in the | | | | PDT | | results section. | + +--------+ + + + | XR CHEST 2 VIEWS | Routin | 10/23/2017 | | Results for this | | | e | 8:36 AM | | procedure are in the | | | | PDT | | results section. | + +--------+ + + + | HISTORICAL LAB PANEL | Routin | 10/23/2017 | | Results for this | | RESULT | e | 8:00 AM | | procedure are in the | | | | PDT | | results section. | + +--------+ + + + | TROPONIN I | Routin | 10/23/2017 | | Results for this | | | e | 8:00 AM | | procedure are in the | | | | PDT | | results section. | + +--------+ + + + | ECG 12 LEAD | Routin | 10/23/2017 | | Results for this | | | e | 7:26 AM | | procedure are in the | | | | PDT | | results section. | + +--------+ + + + documented in this encounter Results ECG 12 lead (10/23/2017 12:36 PM PDT) + + + + + + | Component | Value | Ref Range | Performed | Pathologist | | | | | At | Signature | + + + + + + | DIAGNOSIS: | Normal sinus rhythmT | | EXTERNAL | | | | wave abnormality, | | LAB | | | | consider inferior | | | | | | ischemiaAbnormal ECGWhen | | | | | | compared with ECG of | | | | | | 23-OCT-2017 | | | | | | 07:26,Inverted T waves | | | | | | have replaced | | | | | | nonspecific T wave | | | | | | abnormality in Inferior | | | | | | leadsNonspecific T wave | | | | | | abnormality, worse in | | | | | | Anterior leadsThis ECG | | | | | | contains Unconfirmed | | | | | | Interpretation | | | | | | Statements. See ED | | | | | | Record for Physician | | | | | | Interpretation. | | | | | | Confirmed by MUSE READ | | | | | | ONLY, -COMPUTER ([id number]), | | | | | | primer expeditor and drier Roberto Stevens | | | | | | Gonzalo ([id number]) on 10/23/2017 | | | | | | 7:42:11 PM | | | | + + + + + + + + | Specimen | + + | | + + + + + | Narrative | Performed At | + + + | Historically converted procedure from [facility] environment | EXTERNAL LAB | + + + + +---------+ + + | Performing | Address | City/State/Zipcode | Phone Number | | Organization | | | | + +---------+ + + | EXTERNAL LAB | | | | + +---------+ + + POC Glucose (10/23/2017 11:25 AM PDT) + + + + + + | Component | Value | Ref Range | Performed | Pathologist | | | | | At | Signature | + + + + + + | Glucose, | 348 (H)Comment: Testing | 65 - 99 mg/dL | EXTERNAL | | | Fingerstick | performed at [facility] [place] | [address] | | [address];[place], [place] | | | | | | [address] | | | | + + + + + + + + | Specimen | + + | | + + + +---------+ + + | Performing | Address | City/State/Zipcode | Phone Number | | Organization | | | | + +---------+ + + | EXTERNAL LAB | | | | + +---------+ + + CT Angiogram Pulmonary w Contrast (10/23/2017 8:59 AM PDT) + + | Specimen | + + | | + + + + + | Impressions | Performed At | + + + | 1. Minimal strandy change within the right lower lobe pulmonary | | | artery, stable from the 2 previous studies dating back to 10/13/17, | | | but new from 12/27/14. This probably represents chronic changes from a | | | previous small embolus. 2. No evidence of acute pulmonary embolus. | | | | | + + + + + + | Narrative | Performed At | + + + | HISTORY: Chest pain. Question pulmonary embolus. COMPARISON: | | | 10/20/17 CTA chest. 10/13/17 CTA chest. 12/27/14 CTA chest. | | | TECHNIQUE: Axial 0.[address] images using automated | | | exposure control were acquired through the chest according to a CT | | | angiography protocol. Multiplanar CT angiographic MIP | | | reconstructions were performed from the arterial phase data set. 3-D | | | reconstructions were performed using the [employer] 3-D software and | | | sent to PACS. IV contrast: 69 mL IsoVue 370 FINDINGS: There is | | | no evidence of acute pulmonary embolus. Minimal strandy change in the | | | right lower lobe pulmonary artery sequence 5 image 144, stable from | | | 10/21/79, 10/13/17, but new from 12/27/14. No infiltrates or | | | effusions. No hilar or mediastinal adenopathy. Thoracic aorta | | | unremarkable. No dissection. Scans through the upper abdomen are | | | unremarkable. Esophagus unremarkable. Bone windows show mild | | | spondylotic changes of the spine. | | + + + + + | Procedure Note | + + | Richard, Rad Conversion - 09/19/2018 1:06 AM PDT HISTORY:Chest pain. Question pulmonary | | embolus. COMPARISON:10/20/17 CTA chest. 10/13/17 CTA chest. 12/27/14 CTA chest. | | TECHNIQUE:Axial 0.[address] images using automated exposure control were | | acquired through the chest according to a CT angiography protocol. Multiplanar CT | | angiographic MIP reconstructions were performed from the arterial phase data set. 3-D | | reconstructions were performed using the [employer] 3-D software and sent to PACS.IV | | contrast: 69 mL IsoVue 370 FINDINGS:There is no evidence of acute pulmonary embolus. | | Minimal strandy change in the right lower lobe pulmonary artery sequence 5 image 144, | | stable from 10/21/79, 10/13/17, but new from 12/27/14. No infiltrates or effusions. No | | hilar or mediastinal adenopathy. Thoracic aorta unremarkable. No dissection. Scans | | through the upper abdomen are unremarkable. Esophagus unremarkable. Bone windows show | | mild spondylotic changes of the spine. IMPRESSION: 1. Minimal strandy change within the | | right lower lobe pulmonary artery, stable from the 2 previous studies dating back to | | 10/13/17, but new from 12/27/14. This probably represents chronic changes from a | | previous small embolus.2. No evidence of acute pulmonary embolus. | |Scans through the upper abdomen are unremarkable. Esophagus unremarkable. Bone windows show mild spondylotic changes of the spine. | | | |IMPRESSION: | |1. Minimal strandy change within the right lower lobe pulmonary artery, stable from the 2 previous studies dating back to 10/13/17, but new from 12/27/14. This probably represents ch ronic changes from a previous small embolus. | |2. No evidence of acute pulmonary embolus. | | | | | + + XR Chest 2 Vws (10/23/2017 8:36 AM PDT) + + | Specimen | + + | | + + + + + | Impressions | Performed At | + + + | 1. No acute cardiopulmonary process. | | + + + + + + | Narrative | Performed At | + + + | NORAH Emre GR 1955 61 years Male XR CHEST 2 VIEW FRONTAL | | | AND LATERAL 10/23/2017 8:36 AM INDICATION: Acute chest pain | | | COMPARISON: 10/20/2017 TECHNIQUE: Two view chest, PA and lateral | | | views FINDINGS: The cardiomediastinal contours are normal. There | | | is no mediastinal widening or shift. No pneumothorax or effusion. | | | The lungs are clear with no focal consolidation or pulmonary | | | nodules. Mild degenerative disc disease of the thoracic spine is | | | present. There is mild right acromioclavicular osteoarthritis. | | + + + + + | Procedure Note | + + | Richard, Rad Conversion - 09/19/2018 1:06 AM PDT NORAH Andrea SIMÓN years MaleXR | | CHEST 2 VIEW FRONTAL AND LATERAL10/23/2017 8:36 AM INDICATION: Acute chest pain | | COMPARISON: 10/20/2017 TECHNIQUE: Two view chest, PA and lateral views FINDINGS: The | | cardiomediastinal contours are normal. There is no mediastinal widening or shift. No | | pneumothorax or effusion. The lungs are clear with no focal consolidation or pulmonary | | nodules. 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 IMPRESSION: 1. No acute cardiopulmonary | | process. | |COMPARISON: 10/20/2017 | | | |TECHNIQUE: Two view chest, PA and lateral views | | | |FINDINGS: The cardiomediastinal contours are normal. There is no mediastinal widening or s hift. No pneumothorax or effusion. The lungs are clear with no focal consolidation or pulm onary nodules. Mild | |degenerative disc disease of the thoracic spine is | |present. There is mild right acromioclavicular osteoarthritis. | | | |IMPRESSION: | |1. No acute cardiopulmonary process. | | | | | + + HISTORICAL LAB PANEL RESULT (10/23/2017 8:00 AM PDT) + + + + + -+ | Component | Value | Ref Range | Performed | Pathologist | | | | | At | Signature | + + + + + -+ | WBC | 11.79 (H) | 3.80 - 11.00 | EXTERNAL | | | | | K/uL | LAB | | + + + + + -+ | Non- | 4.68 | 4.20 - 5.70 | EXTERNAL | | | Red Blood | | M/uL | LAB | | | Cells | | | | | | Counted | | | | | + + + + + -+ | Hemoglobin | 13.3 | 13.2 - 17.0 | EXTERNAL | | | | | g/dL | LAB | | + + + + + -+ | Hematocrit, | 38.9 (L) | 39.0 - 50.0 % | EXTERNAL | | | POC | | | LAB | | + + + + + -+ | MCV | 83.2 | 80.0 - 100.0 fl | EXTERNAL | | | | | | LAB | | + + + + + -+ | MCH | 28.4 | 27.0 - 34.0 pg | EXTERNAL | | | | | | LAB | | + + + + + -+ | MCHC | 34.1 | 32.0 - 35.5 | EXTERNAL | | | | | g/dL | LAB | | + + + + + -+ | RDW-CV | 45.1 | 37 - 53 fl | EXTERNAL | | | | | | LAB | | + + + + + -+ | Platelet | 288 | 150 - 400 K/uL | EXTERNAL | | | Count | | | LAB | | | Plasma | | | | | + + + + + -+ | MPV | 7.5 | fl | EXTERNAL | | | | | | LAB | | + + + + + -+ | Differentia | AUTOMATED | | EXTERNAL | | | l Type | | | LAB | | + + + + + -+ | % Segmented | 65.86 | % | EXTERNAL | | | | | | LAB | | | Neutrophils | | | | | + + + + + -+ | % | 20.58 | % | EXTERNAL | | | Lymphocytes | | | LAB | | + + + + + -+ | % Monocytes | 10.65 | % | EXTERNAL | | | | | | LAB | | + + + + + -+ | % | 2.38 | % | EXTERNAL | | | Eosinophils | | | LAB | | + + + + + -+ | % Basophils | 0.53 | % | EXTERNAL | | | | | | LAB | | + + + + + -+ | Absolute | 7.77 (H) | 1.90 - 7.40 | EXTERNAL | | | Segmented | | K/uL | LAB | | | Neutrophils | | | | | + + + + + -+ | Absolute | 2.43 | 1.00 - 3.90 | EXTERNAL | | | Lymphocytes | | K/uL | LAB | | + + + + + -+ | Absolute | 1.26 (H) | 0.00 - 0.80 | EXTERNAL | | | Monocytes | | K/uL | LAB | | + + + + + -+ | Absolute | 0.28 | 0.00 - 0.50 | EXTERNAL | | | Eosinophils | | K/uL | LAB | | + + + + + -+ | Absolute | 0.06 | 0.00 - 0.10 | EXTERNAL | | | Basophils | | K/uL | LAB | | + + + + + -+ | Na | 136 | 135 - 145 | EXTERNAL | | | | | mmol/L | LAB | | + + + + + -+ | K | 4.4 | 3.5 - [...] + + + -+ | Glucose, | 333 (H) | 65 - 99 mg/dL | EXTERNAL | | | Fasting | | | LAB | | + + + + + -+ | BUN | 27 (H) | 8 - 25 mg/dL | EXTERNAL | | | | | | LAB | | + + + + + -+ | Creatinine | 1.4 (H) | 0.70 - 1.30 | EXTERNAL | | | | | mg/dL | LAB | | + + + + + -+ | BUN/Creatin | 19 | | EXTERNAL | | | ine Ratio | | | LAB | | + + + + + -+ | Calcium | 9.3 | 8.5 - 10.5 | EXTERNAL | | | | | mg/dL | LAB | | + + + + + -+ | Protein, | 7.6 | 6.3 - 8.2 g/dL | EXTERNAL | | | Total | | | LAB | | + + + + + -+ | Albumin | 3.2 (L) | 3.3 - 4.8 g/dL | EXTERNAL | | | | | | LAB | | + + + + + -+ | Globulin | 4.5 | 1.3 - 4.9 g/dL | EXTERNAL [...] + + + -+ | ALP, | 98 | 35 - 115 U/L | EXTERNAL | | | External | | | LAB | | + + + + + -+ | AST | 16 | 10 - 45 U/L | EXTERNAL [...] + + -+ | CK, Total | 72 | 55 - 400 U/L | EXTERNAL [...] + + + -+ | aPTT, | 27 | 23 - 32 seconds | EXTERNAL | | | Patient | | | LAB | | + + + + + -+ | CK-MB | 1.4 | 0.5 - 3.6 ng/mL | EXTERNAL | | | | | | LAB | | + + + + + -+ | CK-MB Index | 1.9Comment: CK INDEX | | EXTERNAL | | [...] | + +---------+ + + Troponin I (10/23/2017 8:00 AM PDT) + + + + + [...] | | | | | | ACUTE UT Testing | | | | | | performed at [facility] | | | | | | [address];[place], [place] | | | | | | [address] | | | | + + + + + + + + | Specimen | + + | | + + + +---------+ + + | Performing | Address | City/State/Zipcode | Phone Number | | Organization | | | | + +---------+ + + | EXTERNAL LAB | | | | + +---------+ + + ECG 12 lead (10/23/2017 7:26 AM PDT) + + + + [...] | | | | | ECG of 21-OCT-2017 | | | | | | 04:19,Vent. 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
--- OUTSIDE RECORDS SUMMARY | ~2019-10-12 | XMS | Encounter Summary ---
Demographics + + + | Address | [address] | | | [place] [address] | + + + | Home Phone [...] + | Sammi Kohler | ECON | [place] [address] | | + + + + + Care Team Providers + +------+ + | Care Railroad Car Repair Supervisor Name | Role | Phone | + +------+ + | Mireya Pack NP | PCP | | + +------+ + Reason for Visit + +--------+ + | Reason | Onset | Comments | | | Date | | + +--------+ + | Appointment Question | 03/08/ | kayode bacon. | | | 2020 | | + +--------+ + Encounter Details +--------+ + + + + | Date | Type | Department | Care Team | Description | +--------+ + + + + | 03/08/ | Telephone | [facility] | Mireya Pack, | Appointment Question | | 2019 | | [facility] [address] | FACILITY MAINTENANCE TECHNICIAN [address] | (soon appt. ) | | | | [address] | [address] [place], | | | | | [place], [place] | [place] [address] | | | | | [address] | [phone] | | | | | [phone] | | | +--------+ + + + [...] this encounter Miscellaneous Notes Telephone Encounter - Eulogio Cavlo Denis - 03/08/2019 8:12 AM PSTDagloryd, is calling [facility] Appointment Question (sooner appt. ) and would like a call back. Additional Call Details: Patient is requesting a sooner appointment then 03.20.19. Patient is needing one after 03.11.19, but before 03.14.19 so his paperwork for the social security office can be completed. Call patient back at [phone]. If this is a symptom based call, was patient offered triage? Not Applicable If this is a symptom based call and you were unable to immediately transfer the call to a ashley pascual oracle programmer analyst was caller made aware that if at [...] | | | | | [address] [place], | | | | | | [place] [address] | | | | | | [phone] | | | | | | | [...]
--- OUTSIDE RECORDS SUMMARY | ~2019-10-12 | XMS | Encounter Summary ---
Demographics + + + | Address | [address] | | | [place] [address] | + + + | Home Phone | | + + + | Preferred Language | Unknown | + + + | Marital Status | | + + + | Nondenominational Affiliation | 1027 | + + + | Race | White | + + + | Ethnic Group | Not or | + + + Author + + + | Author | [facility] | | | and [place] | + + + | Organization | [facility] | | | and [place] | + + + | Address | Unknown | + + + | Phone | Unavailable | + + + Support + + + + + | Name | Relationship | Address | Phone | + + + + + | Sammi Kohler | ECON | [place] [address] | | + + + + + Care Team Providers + +------+ + | Care Golf Tournament Consultant Name | Role | Phone | + +------+ + | Mik Diego DO | PCP | | + +------+ + Encounter Details +--------+ + + + + | Date | Type | Department | Care Team | Description | +--------+ + + + + | 10/16/ | Orders Only | [facility] | Conversion | | | 2014 | | CENTER | Transaction, | | | | | ANTICOAGULATION | Provider Unknown | | | | | [facility] | | | | | | [address] | (Fax) | | | | | [place], [place] | | | | | | [address] | | | | | | [phone] | | | +--------+ + + + [...] encounter Progress Notes Jaelyn Chiang ARNP - 10/16/2014 2:33 PM PDTFormatting of this note might be different f rom the original. Progress Notes by CITLALY Romo at 10/16/14 3236 Author: CITLALY Romo Service: (none) Author Type: Advanced Registered Nurse Zaina ctitioner Filed: 10/16/14 1437 Encounter Date: 10/16/2014 Status: Signed Quality Assurance Supervisor Chassis: CITLALY Romo (Advanced Registered Nurse Practitioner) S- Maintenance visit. INR check and warfarin dosing. Pt dosed warfarin as directed. No medication changes reported. No illnesses or ER visits. No increased bruising or bleeding. Pt reports having been in [facility] since he was seen last. However, his records show he' s been in the ED 3 times in the last month He states he's taken his warfarin without any missed doses. States he no longer has his medication nurse. O- INR 1.0 A- Sub Therapeutic INR - appears to not be taking meds. P- Will start a new bottle of warfarin. Double dose today and tomorrow, then return to 5mg daily. Return for INR check in 1 week. Will contact his med nurse for patient safety concern s. documented in this encounter Plan of Treatment +--------+ + + + + | Date | Type | Specialty | Care Team | Description | +--------+ + + + + | 10/16/ Anti-coag | Anticoagulation | Brittany Zaragoza | | | 2020 | visit | | [address] | | | | | | [address] [place], | | | | | | [place] [address] | | | | | | [phone] | | | | | | | | +--------+ + + + + documented as of this encounter Procedures + +--------+ + + + | Procedure Name | Priori | Date/Time | Associated Diagnosis | Comments | | | ty | | | | + +--------+ + + + | POC INR | Routin | 10/16/2014 | | Results for this | | | e | 12:00 AM | | procedure are in the | | | | PDT | | results section. | + +--------+ + + + documented in this encounter Results POC INR (10/16/2014 12:00 AM PDT) + +-------+ + + + | Component | Value | Ref Range | Performed | Pathologist | | | | | At | Signature | + +-------+ + + + | INR | 1.0 | | EXTERNAL | | | | [...]
--- OUTSIDE RECORDS SUMMARY | ~2019-10-12 | XMS | Encounter Summary ---
Demographics + + + | Address | [address] | | | [place] [address] | + + + | Home Phone | | + + + | Preferred Language | Unknown | + + + | Marital Status | | + + + | Latter Day Affiliation | 1027 | + + + | Race | White | + + + | Ethnic Group | Not or | + + + Author + + + | Author | [facility] | | | and [place] | + + + | Organization | [facility] | | | and [place] | + + + | Address | Unknown | + + + | Phone | Unavailable | + + + Support + + + + + | Name | Relationship | Address | Phone | + + + + + | Sammi Kohler | ECON | [place] [address] | | + + + + + Care Team Providers + +------+ + | Care Banana Handler Name | Role | Phone | + +------+ + PCP | Unavailable | + +------+ + Encounter Details +--------+ + + + + | Date | Type | Department | Care Team | Description | +--------+ + + + + | 09/15/ | Emergency | [facility] | Elmo Souza | Fall at home, | | 2015 - | | [facility] | DO [address] | initial encounter; | | | | [facility] | RANDELL WOOD | Back strain, | | 09/16/ | | [address] | [place] [address] | subsequent | | 2014 | | [place], [place] | [phone] | encounter; Chronic | | | | [address] | | back pain | | | | [phone] | | | +--------+ + + + [...] ED Notes Conversion Transaction, Provider Unknown - 09/16/2014 12:10 AM PDTFormatting of this note m ight be different from the original. ED Notes by Yanna Loera RN at 09/16/149 Author: Yanna Loera RN Service: (none) Author Type: Registered Nurse Filed: 09/16/149 Date of Service: 09/16/149 Status: Signed University Intern: Yanna Loera RN (Registered Nurse) Pt to be DC home, taxi called. Pt aware. Yanna Loera RN 09/16/149 onver ivana Transaction, Provider Unknown - 09/16/2014 12:00 AM PDT ED Notes by Yanna Loera RN at 09/16/14 0000 Author: Yanna Loera RN Service: (none) Author Type: Registered Nurse Filed: 09/16/149 Date of Service: 09/16/14 Status: Signed University Intern: Yanna Loera RN (Registered Nurse) Pt c/o Chest Pain upon hearing he will be discharged home. EKG done and shown to Dr. Souza. Yanna Loera RN 09/16/149 onver ivana Transaction, Provider Unknown - 09/15/2014 10:49 PM PDT ED Notes by Ashley Selby RN at 09/15/142248 Author: Ashley Selby RN Service: (none) Author Type: Registered Nurse Filed: 09/15/142248 Date of Service: 09/15/142248 Status: Signed University Intern: Ashley Selby RN (Registered Nurse) Pt remains at xray. Ashley Selby RN 09/15/142248 onver ivana Transaction, Provider Unknown - 09/15/2014 10:35 PM PDT ED Notes by Ashley Selby RN at 09/15/142234 Author: Ashley Selby RN Service: (none) Author Type: Registered Nurse Filed: 09/15/142234 Date of Service: 09/15/142234 Status: Signed University Intern: Ashley Selby RN (Registered Nurse) Pt remains at xray. Ashley Selby RN 09/15/142234 Ana Zuñiga PA-C - 09/15/2014 10:06 PM PDTFormatting of this note might be different from the o riginal. ED Provider Notes by Ana Victoria PA-C at 09/15/142205 Author: Ana Victoria PA-C Service: Emergency Department Author Type: Physician Dowel Pin Worker - Certified Filed: 09/20/14 1119 Date of Service: 09/15/142205 Status: Attested University Intern: Ana Victoria PA-C (Physician Dowel Pin Worker - Certified) Cosigner: Xander Jacobo at 09/20/142249 Attestation signed by Elmo Souza DO at 09/20/142249 I was present for veronica portions of this patient's care during their visit today. I supervis ed the APC in their care provided at this visit. ELMO SOUZA Procedures [facility] Department of Emergency Medicine HPI History of Present Illness Patient Identification Kevyn Guzman is a 58 y.o. male. Patient information was obtained from patient. History/Exam limitations: none. Patient presented to the Emergency Department by: Car brought here by friend Chief Complaint Chief Complaint Patient presents with Fall Back Pain lower, "i fell a couple of days ago" Pt presents s/p FALL with injury to BACK Fell at 10am walking from inside house to outside, tripped, felt onto cement steps on his b ack pain 11/15 no head injuries, no preceding sx has been ambulatory. Hx of arthritis but pa in worse now after fall. The patient complaints of the following location of pain/injuries: mid and low back Care prior to arrival consisted of nothing Past Medical History Diagnosis Date Diabetes mellitus [...] pain Stroke (HCC) TIA (transient ischemic attack) group home (current) use of 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 Past Surgical History Procedure Laterality Date Unlisted procedure arthroscopy Knee surgery rt knee, patella Leg surgery LLE Colonoscopy Cholecystectomy, laparoscopic 09/12/2012 Procedure: LAPAROSCOPIC - CHOLECYSTECTOMY; Surgeon: Jevon Vargas DO; Location: [facility] MAIN OR; Service: General; Laterality: N/A; Abdominal surgery Cholecystectomy Skin cancer excision 10/10/2012 Procedure: EXCISION - SKIN CANCER; Surgeon: Sy Fierro MD; Location: [facility] MAIN OR ; Service: Plastics; Laterality: Left; upper arm and upper back w/frozen section Esophagogastroduodenoscopy 03/03/2013 Procedure: ESOPHAGOGASTRODUODENOSCOPY; Surgeon: Howie Gibson MD; Location: [facility] ENDOSCOPY; S ervice: Gastroenterology; Laterality: N/A; Colonoscopy 03/04/2013 Procedure: COLONOSCOPY; Surgeon: Howie Gibson MD; Location: [facility] ENDOSCOPY; Service: Gastroe nterology; Laterality: N/A; Upper gastrointestinal endoscopy Skin biopsy Hernia repair 07/03/2013 Procedure: LAPAROSCOPIC - HERNIA - INCISIONAL; Surgeon: Jevon Vargas DO; Location: [facility] MAIN OR; Service: General; Laterality: N/A; Skin lesion excision Left 05/05/2014 Procedure: EXCISION - LESION - FROZEN SECTION; Surgeon: Sy Fierro MD; Location: [facility] MAIN OR; Service: Plastics; Laterality: Left; forearm Prior to Admission medications Medication Sig Start Date End Date Taking? Authorizing Provider Albuterol Sulfate (VENTOLIN HFA IN) Inhale 2 puffs into the lungs as needed. 108 mcg/act Historical Provider Sgkqi-V-Vyxhiagstvrpp (BEANO) TABS Take 150 Units by mouth [...] 100 mg by mouth nightly. Historical Provider gfneldfay-jlnhjdtn-ualnyaawn hydroxide-simethicone Take 40 mLs by mouth daily [...] of Children: 1 Years of Education: s. [employer] Occupational History disabled Social History Main Topics [...] Heart Problems Brother ROS Review of Systems CMusculoskeletal: Positive for: back pain Skin: Negative for: laceration or lesion Neuro and psych: Negative for: fainting, head injury, seizure, trouble walking Endocrine/Heme/Lymph: Negative for: swollen lymph nodes, easy bruising Physical Exam Physical Exam BP 142/65 mmHg | Pulse 85 | Temp(Src) 98.4 F (36.9 C) (Temporal) | Resp 18 | Wt 102.8 k g (226 lb 10.1 oz) | SpO2 98% Pulse Oximetry interpretation: Normal General: Sitting in wheelchair, Genesis, neuro intact Head: no visible trauma Eyes: Normal inspection, pupils equal and round, non-icteric ENT: Ears normal Nose normal Pharynx normal Neck: Normal inspection, supple, no midline tenderness, no limitation in his arom Cardiovascular: Rate and rhythm normal No murmurs Respiratory: Breath sounds normal bilaterally Abdomen: Soft, non-tender, Back: Normal inspection, skin intact, mod mid line tspine and lspine tenderness, increase pain with flexion and lateral bending Skin: Color normal Warm and dry No [...] Intoxication Result: Nexus C-spine rule negative Adapted [place] Criteria for Head CT Inclusion: GCS = 15, independent of loss of consciousness, no neuro deficit, age > 3 yrs): Single Yes result makes the rule positive no: Headache (diffuse or localized pain) no: Vomiting (any emesis) no: Seizure (witnessed or suspected) no: Intoxication (clinical assessment) no: Short term memory deficit no: Age > 60 years no: Evidence of physical injury above the clavicles Result: negative ED Department Course Presents with worsening back pain s/p fall this am, neuro intact, no other injuries, diff d x sprain vs fracture, xrays ordered. After reviewing his records, he takes chronic narcotics for chronic back pain from previous compression fx.,although pt denies this. 2225 to xray via w/c, having very difficult time getting from bed to w/c d/t pain, nurse allie dougherty held IV meds feeling he can walk okay. 2249 returns from xray 2319 xrays read 2324 friend brought him here, xray results given to pt, no chronic back pain his pain medic ation list states he takes chronic narcotics, pt states no 2350 nursing getting his percocet, pt not sure if he takes chronic narcotics, although he h as pcp and he will need to f/u with pcp for further rx for pain. 2356 pt now c/o mid sternal chest pain 3/10 feels "my afib is kicking in" aissatou asked nurse roddy farmer to do ekg. Apical regular pulse is 60 on my exam, pt remains sitting in chair, in no dist ress, no resp distress, speaks in full sentences, back pain was 10/10, now 8/10. EKG taken t o Dr Souza to clear and Dr Souza has cleared it - NSR not Afib. I have discussed EKG findings, he will be discharged. EKG Interpretation Rhythm: Sinus Ventricular Rate: 62 IA Interval: Normal ST Segments: Normal Significant Q-waves: None Blocks: None Additional Comments: None 0019 EKG is cleared by Dr Souza - no STEMI and pt had normal nuclear medicine scan 07-14-14. Jessie bonilla has an appt with pcp already scheduled in 2 days for something else, he will need to keep that appt. Activity as tolerated, he remains weight bearing. Back pain 4/10. He should cont inue chronic pain meds and f/U With pcp or return here if worsen. Pt voices understanding o f all instructions and agrees on today's treatment plan. Records Reviewed Nursing notes. Labs & Radiology Results Laboratory Evaluation Results None Radiology and EKG Evaluation Imaging Results XR Thoracic Spine 2 View (Final result) Result time: 09/15/14 23:10:27 Final result by Rad Results In Richard (09/15/14 23:10:27) Impression: 1. Some arthropathy, and diffuse idiopathic skeletal hyperostosis of the thoracic spine. 2. Somewhat ectatic transverse colon Narrative: HISTORY: 58-year-old male, pain post trauma TECHNIQUE: 1. 3 view radiographic examination of the thoracic spine 2. 3 view radiographic examination of the lumbar spine Prior study for review : None similar FINDINGS: Thoracic spine: Diffuse idiopathic skeletal hyperostosis, without malalignment or compressi on. No fracture. No paraspinal mass or lesion Lumbar spine: No fracture or compression. Facet arthropathy lower lumbar column Clips in the gallbladder fossa. Somewhat ectatic gas-filled transverse colon XR Lumbar Spine 3 View (Final result) Result time: 09/15/14 23:10:27 Final result by Rad Results In Richard (09/15/14 23:10:27) Impression: 1. Some arthropathy, and diffuse idiopathic skeletal hyperostosis of the thoracic spine. 2. Somewhat ectatic transverse colon Narrative: HISTORY: 58-year-old male, pain post trauma TECHNIQUE: 1. 3 view radiographic examination of the thoracic spine 2. 3 view radiographic examination of the lumbar spine Prior study for review : None similar FINDINGS: Thoracic spine: Diffuse idiopathic skeletal hyperostosis, without malalignment or compressi on. No fracture. No paraspinal mass or lesion Lumbar spine: No fracture or compression. Facet arthropathy lower lumbar column Clips in the gallbladder fossa. Somewhat ectatic gas-filled transverse colon Diagnosis & Disposition ED Diagnoses Final diagnoses Fall at home, initial encounter Back strain, subsequent encounter Chronic back pain Disposition: ED Disposition None Follow-up Information Follow up With Details Comments Contact Info Jerrell Diego DO As needed, If symptoms worsen [address] [facility] [address] Discharge Medications: Discharge Medication List as of 09/15/2014 11:41 PM Ana Victoria PA-C 09/20/14 1119 Elmo Souza DO 09/20/14 5564 onversion Transacti on, Provider Unknown - 09/15/2014 9:43 PM PDTFormatting of this note might be different fro m the original. ED Notes by Ashley Selby RN at 09/15/142142 Author: Ashley Selby RN Service: (none) Author Type: Registered Nurse Filed: 09/15/142143 Date of Service: 09/15/142142 Status: Signed University Intern: Ashley Selby RN (Registered Nurse) Pt complaining of mid to lower back pain after slipping on some steps this morning. Pt stat es pain 11/15 at this time. Pt walked into ed room upon arrival. Ashley Selby RN 09/15/142143 docume nted in this encounter Plan of Treatment +--------+ + + + + | Date | Type | Specialty | Care Team | Description | +--------+ + + + + | 10/16/ | Anti-coag | Anticoagulation | Brittany Zaragoza | | | 2019 | visit | | [address] | | | | | | [address] [place], | | | | | | [place] [address] | | | | | | [phone] | | | | | | | | +--------+ + + + + documented as of this encounter Procedures + +--------+ + + + | Procedure Name | Priori | Date/Time | Associated Diagnosis | Comments | | | ty | | | | + +--------+ + + + | ECG 12 LEAD | Routin | 09/16/2014 | | Results for this | | | e | 12:03 AM | | procedure are in the | | | | PDT | | results section. | + +--------+ + + + | XR THORACIC SPINE 2 | Routin | 09/15/2014 | | Results for this | | VW | e | 10:52 PM | | procedure are in the | | | | PDT | | results section. | + +--------+ + + + | XR LUMBAR SPINE 2 OR | Routin | 09/15/2014 | | Results for this | | 3 VW | e | 10:52 PM | | procedure are in the | | | | PDT | | results section. | + +--------+ + + + documented in this encounter Results ECG 12 lead (09/16/2014 12:03 AM PDT) + + + + + [...] of | | | | | | -AUG-2014 06:14,No | | | | | | significant [...] | | | | | editor book Keyla Gregory | | | | | | (25) on 09/16/2014 | | | | | | 1:33:08 AM | | | | + + + + + + + + | Specimen | + + | | + + + + + | Narrative | Performed At | + + + | Historically converted procedure from ronny Epic environment | EXTERNAL LAB | + + + + +---------+ + + | Performing | Address | City/State/Zipcode | Phone Number | | Organization | | | | + +---------+ + + | EXTERNAL LAB | | | | + +---------+ + + XR Thoracic Spine 2 Vw (09/15/2014 10:52 PM PDT) + + | Specimen | + + | | + + + + + | Impressions | Performed At | + + + | 1. Some arthropathy, and diffuse idiopathic skeletal hyperostosis | | | of the thoracic spine. 2. Somewhat ectatic transverse colon | | | | | | PM | | + + + + + + | Narrative | Performed At | + + + | HISTORY: 58-year-old male, pain post trauma TECHNIQUE: 1. 3 | | | view radiographic examination of the thoracic spine 2. 3 view | | | radiographic examination of the lumbar spine Prior study for | | | review : None similar FINDINGS: Thoracic spine: Diffuse | | | idiopathic skeletal hyperostosis, without malalignment or compression. | | | No fracture. No paraspinal mass or lesion Lumbar spine: No | | | fracture or compression. Facet arthropathy lower lumbar column | | | Clips in the gallbladder fossa. Somewhat ectatic gas-filled transverse | | | colon | | + + + + + | Procedure Note | + + | Richard, Rad Conversion - 09/20/2018 10:29 PM PDT HISTORY: 58-year-old male, pain post | | trauma TECHNIQUE: 1. 3 view radiographic examination of the thoracic spine2. 3 view | | radiographic examination of the lumbar spine Prior study for review : None similar | | FINDINGS: Thoracic spine: Diffuse idiopathic skeletal hyperostosis, without malalignment | | or compression. No fracture. No paraspinal mass or lesion Lumbar spine: No fracture or | | compression. Facet arthropathy lower lumbar column Clips in the gallbladder fossa. | | Somewhat ectatic gas-filled transverse colon IMPRESSION: 1. Some arthropathy, and | | diffuse idiopathic skeletal hyperostosis of the thoracic spine. 2. Somewhat ectatic | | transverse colon | |FINDINGS: | | | |Thoracic spine: Diffuse idiopathic skeletal hyperostosis, without malalignment or compressi on. No fracture. No paraspinal mass or lesion | | | |Lumbar spine: No fracture or compression. Facet arthropathy lower lumbar column | | | |Clips in the gallbladder fossa. Somewhat ectatic gas-filled transverse colon | | | |IMPRESSION: | | | |1. Some arthropathy, and diffuse idiopathic skeletal hyperostosis of the thoracic spine. | | | |2. Somewhat ectatic transverse colon | | | | | | | | | + + XR Lumbar Spine 2 or 3 Vw (09/15/2014 10:52 PM PDT) + + | Specimen | + + | | + + + + + | Impressions | Performed At | + + + | 1. Some arthropathy, and diffuse idiopathic skeletal hyperostosis | | | of the thoracic spine. 2. Somewhat ectatic transverse colon | | | | | | PM | | + + + + + + | Narrative | Performed At | + + + | HISTORY: 58-year-old male, pain post trauma TECHNIQUE: 1. 3 | | | view radiographic examination of the thoracic spine 2. 3 view | | | radiographic examination of the lumbar spine Prior study for | | | review : None similar FINDINGS: Thoracic spine: Diffuse | | | idiopathic skeletal hyperostosis, without malalignment or compression. | | | No fracture. No paraspinal mass or lesion Lumbar spine: No | | | fracture or compression. Facet arthropathy lower lumbar column | | | Clips in the gallbladder fossa. Somewhat ectatic gas-filled transverse | | | colon | | + + + + + | Procedure Note | + + | Richard, Rad Conversion - 09/20/2018 10:29 PM PDT HISTORY: 58-year-old male, pain post | | trauma TECHNIQUE: 1. 3 view radiographic examination of the thoracic spine2. 3 view | | radiographic examination of the lumbar spine Prior study for review : None similar | | FINDINGS: Thoracic spine: Diffuse idiopathic skeletal hyperostosis, without malalignment | | or compression. No fracture. No paraspinal mass or lesion Lumbar spine: No fracture or | | compression. Facet arthropathy lower lumbar column Clips in the gallbladder fossa. | | Somewhat ectatic gas-filled transverse colon IMPRESSION: 1. Some arthropathy, and | | diffuse idiopathic skeletal hyperostosis of the thoracic spine. 2. Somewhat ectatic | | transverse colon | |FINDINGS: | | | |Thoracic spine: Diffuse idiopathic skeletal hyperostosis, without malalignment or compressi on. No fracture. No paraspinal mass or lesion | | | |Lumbar spine: No fracture or compression. Facet arthropathy lower lumbar column | | | |Clips in the gallbladder fossa. Somewhat ectatic gas-filled transverse colon | | | |IMPRESSION: | | | |1. Some arthropathy, and diffuse idiopathic skeletal hyperostosis of the thoracic spine. | | | |2. Somewhat ectatic transverse colon | | | | | | | | | + + documented in this encounter Visit Diagnoses + + | Diagnosis | + + | Fall at home, initial encounter | + + | Back strain, subsequent encounter | + + | Chronic back pain Backache, unspecified | + + documented in this encounter
--- OUTSIDE RECORDS SUMMARY | ~2019-10-12 | XMS | Encounter Summary ---
Demographics + + + | Address | [address] | | | [place] [address] | + + + | Home Phone [...] | Sammi Kohler | ECON | [place] [address] | | + + + + + Care Team Providers + +------+ + | Care Escrow Agent Name | Role | Phone | + +------+ + | Mik Diego DO | PCP | | + +------+ + Encounter Details +--------+ + + + + | Date | Type | Department | Care Team | Description | +--------+ + + + + | 06/13/ | Orders Only | [facility] | Conversion | | | 2014 | | CENTER | Transaction, | | | | | ANTICOAGULATION | Provider Unknown | | | | | [facility] | | | | | | [address] | (Fax) | | | | | [place], [place] | | | | | | [address] | | | | | | [phone] | | | +--------+ + + + [...] (none) Author Type: Advanced Registered Nurse Prac jillianioner Filed: 06/13/14817 Encounter Date: 06/13/2014 Status: Signed Plastics And Composites Inspector: CITLALY Jackson (Advanced Registered Nurse Practitioner) S- Maintenance visit. INR check and warfarin dosing. Pt dosed warfarin as directed. No medication changes reported. No illnesses or ER visits. No increased bruising or bleeding. O- INR 2.6 A- Therapeutic INR P- Continue same dosage. documented in this encoun ter Plan of Treatment +--------+ + + + + | Date | Type | Specialty | Care Team | Description | +--------+ + + + + | 10/16/ | Anti-coag | Anticoagulation | Brittany Zaragoza | | | 2019 | visit | | [address] | | | | | | [address] [place], | | | | | | [place] [address] | | | | | | [phone] | | | | | | | [...]
--- OUTSIDE RECORDS SUMMARY | ~2019-10-12 | XMS | Encounter Summary ---
Demographics + + + | Address | [address] | | | [place] [address] | + + + | Home Phone | | + + + | Preferred Language | Unknown | + + + | Marital Status | | + + + | Yazidism Affiliation | [id number] | + + + [...] + | Sammi Kohler | ECON | [place] [address] | | + + + + + Care Team Providers + +------+ + | Care Ramp Boss Name | Role | Phone | + +------+ + PCP | Unavailable | + +------+ + Encounter Details +--------+ + + + + | Date | Type | Department | Care Team | Description | +--------+ + + + + | 10/31/ | Emergency | [facility] | Marcos Nugent, | Acute nonintractable | | 2015 | | [facility] | MD [address] | headache, | | | | EMERGENCY CENTER | [place] [address] | unspecified headache | | | | [address] | [phone] | type | | | | [place], [place] | | | | | | [address] | | | | | | [phone] | | | +--------+ + + + [...] 10/31/1458 Date of Service: 10/31/14656 Status: Signed Senior Medical Writer: Carlos Morfin RN (Registered Nurse) 20/40 both eyes in visual acuity check Carlos Morfin RN 10/31/14 0658 rabtr ee, Marcos Preston MD - 10/31/2014 5:24 AM PDT ED Provider Notes by Marcos Nugent MD at 10/31/14523 Author: Marcos Nugent MD Service: -Emergency Author Type: Physician Filed: 10/31/14717 Date of Service: 10/31/14523 Status: Addendum Senior Medical Writer: Marcos Nugent MD (Physician) Related Notes: Original Note by Marcos Nugent MD (Physician) filed at 10/31/14716 [facility] Department of Emergency Medicine 10/31/2014 History of [...] Depression Renal failure ARF (acute renal failure) ([facility]) 03/02/2013 COPD (chronic obstructive pulmonary disease) ([facility]) 03/02/2013 hypoxemia on 2 lts nc Development [...] pain Stroke (HCC) TIA (transient ischemic attack) USP (current) use of 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 Past Surgical History Procedure Laterality Date Unlisted procedure arthroscopy Knee surgery rt knee, patella Leg surgery LLE Colonoscopy Cholecystectomy, laparoscopic 09/12/2012 Procedure: LAPAROSCOPIC - CHOLECYSTECTOMY; Surgeon: Jevon Vargas DO; Location: [facility] MAIN OR; Service: General; Laterality: N/A; Abdominal surgery Cholecystectomy Skin cancer excision 10/10/2012 Procedure: EXCISION - SKIN CANCER; Surgeon: Sy Fierro MD; Location: [facility] MAIN OR ; Service: Plastics; Laterality: Left; upper arm and upper back w/frozen section Esophagogastroduodenoscopy 03/03/2013 Procedure: ESOPHAGOGASTRODUODENOSCOPY; Surgeon: Howie Gibson MD; Location: [facility] ENDOSCOPY; S ervice: Gastroenterology; Laterality: N/A; Colonoscopy 03/04/2013 Procedure: COLONOSCOPY; Surgeon: Howie Gibson MD; Location: [facility] ENDOSCOPY; Service: Gastroe nterology; Laterality: N/A; Upper gastrointestinal endoscopy Skin biopsy Hernia repair 07/03/2013 Procedure: LAPAROSCOPIC - HERNIA - INCISIONAL; Surgeon: Jevon Vargas DO; Location: [facility] MAIN OR; Service: General; Laterality: N/A; Skin lesion excision Left 05/05/2014 Procedure: EXCISION - LESION - FROZEN SECTION; Surgeon: Sy Fierro MD; Location: [facility] MAIN OR; Service: Plastics; Laterality: Left; forearm Prior to Admission medications Medication Sig Start Date End Date Taking? Authorizing Provider Albuterol Sulfate (VENTOLIN HFA IN) Inhale 2 puffs into the lungs as needed. 108 mcg/act Historical Provider Dgtyd-K-Txvmdyjtcpamj (BEANO) TABS Take 150 Units by mouth [...] 100 mg by mouth nightly. Historical Provider epdkfawug-htwkhgcg-whwrjifjz hydroxide-simethicone Take 40 mLs by mouth daily [...] Lives alone x 1 wk, moved from [facility], , 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 2 falls [...] notes. (Using the electronic record system of [facility]) Laboratory Evaluation Results Procedure Component Value Ref Range Date/Time Comprehensive metabolic panel [[id number]] (Abnormal) Collected: 10/31/14 0542 Order Status: Completed [...] 65 U/L EGFR >60 >60 mL/min/1.73m2 aPTT [[id number]] Collected: 10/31/14541 Order Status: Completed Specimen Information: Blood Updated: 10/31/14634 APTT 31 23 - 32 seconds Protime [[id number]] Collected: 10/31/14541 Order Status: Completed Specimen Information: Blood Updated: 10/31/14634 INR 1.7 CBC with differential [[id number]] (Abnormal) Collected: 10/31/14541 Order Status: Completed Specimen [...] 31 2014 6:06AM Referring Provider Ara bonilla: [phone] ID: [id number] Narrative: EXAM: CT HEAD EXAM [...] With Details Comments Contact Info Jerrell Gutiérrez, Call and schedule appointment for next available [address] [facility] [address] [facility] [address] [facility] Emergency Department If symptoms worsen [address] [facility] [address] Discharge Medications: New Prescriptions No new medications This document has been prepared with a voice recognition system. The possibility of "sound alike" wood box maker errors, and additions or deletions may occur. [...] 2020 | visit | | [address] | | | | | | [place], | | | | | | [place] [address] | | | | | | [phone] | | | | | | | [...] 6:06AM Referring Provider Line: | | | [phone] ID: [id number] | | + + + [...] Oct 31 2014 6:06AM Referring Provider Line: [phone] ID: [id number] | |FINDINGS: | |Parenchyma: No [...] 31 2014 6:06AM Referring Provider Ara e: [phone] ID: [id number] | + + PTT (10/31/2014 5:42 AM PDT) + + + + + + | Component | Value | Ref Range | Performed | Pathologist | | | | | At | Signature | + + + + + + | aPTT, | 31Comment: Testing | 23 - 32 seconds | EXTERNAL | | | Patient | performed at [facility];[address] | | LAB | | | | [address];[place] | | | | | | [address] | | | | + + + [...] | | | | | performed at [facility] | | | | | | [facility];[place], [place] | | | | | | [address] | | | | + + + [...] EXTERNAL | | | | performed at [facility];[address] | K/uL | LAB | | | | [address];[place] | | | | | | [address] | | | | + + + + + + | Non- | 5.01Comment: Testing | 4.20 - 5.70 | EXTERNAL | | | Red Blood | performed at [facility];[address] | M/uL | LAB | | | Cells | [address];[place] | | | | | Counted | [address] | | | | + + + + + + | Hemoglobin | 12.5 (L)Comment: Testing | 13.2 - 17.0 | EXTERNAL | | | | performed at [facility];[address] | g/dL | LAB | | | | [address];[place] | | | | | | [address] | | | | + + + + + + | Hematocrit, | 38.2 (L)Comment: Testing | 39.0 - 50.0 % | EXTERNAL | | | POC | performed at [facility];[address] | | LAB | | | | [address];[place] | | | | | | [address] | | | | + + + + + + | MCV | 76.1 (L)Comment: Testing | 80.0 - 100.0 fl | EXTERNAL | | | | performed at [facility];[address] | | LAB | | | | [address];[place] | | | | | | [address] | | | | + + + + + + | MCH | 24.9 (L)Comment: Testing | 27.0 - 34.0 pg | EXTERNAL | | | | performed at [facility];[address] | | LAB | | | | [address];[place] | | | | | | [address] | | | | + + + + + + | MCHC | 32.7Comment: Testing | 32.0 - 35.5 | EXTERNAL | | | | performed at [facility];[address] | g/dL | LAB | | | | [address];[place] | | | | | | [address] | | | | + + + + + + | RDW-CV | 42.4Comment: Testing | 37 - 53 fl | EXTERNAL | | | | performed at [facility];[address] | | LAB | | | | [address];[place] | | | | | | [address] | | | | + + + + + + | Platelet | 285Comment: Testing | 150 - 400 K/uL | EXTERNAL | | | Count | performed at [facility];[address] | | LAB | | | Plasma | [address];[place] | | | | | | [address] | | | | + + + + + + | MPV | 7.7Comment: Testing | fl | EXTERNAL | | | | performed at [facility];[address] | | LAB | | | | [address];[place] | | | | | | [address] | | | | + + + + + + | Differentia | AUTOMATEDComment: | | EXTERNAL | | | l Type | Testing performed at | | LAB | | | | [facility];[address];[place] [address] | | | | + + + + + + | % Segmented | 44.69Comment: Testing | % | EXTERNAL | | | | performed at [facility];[address] | | LAB | | | Neutrophils | [address];[place] | | | | | | [address] | | | | + + + + + + | % | 39.89Comment: Testing | % | EXTERNAL | | | Lymphocytes | performed at [facility];[address] | | LAB | | | | [address];[place] | | | | | | [address] | | | | + + + + + + | % Monocytes | 10.40Comment: Testing | % | EXTERNAL | | | | performed at [facility];[address] | | LAB | | | | [address];[place] | | | | | | [address] | | | | + + + + + + | % | 4.08Comment: Testing | % | EXTERNAL | | | Eosinophils | performed at [facility];[address] | | LAB | | | | [address];[place] | | | | | | [address] | | | | + + + + + + | % Basophils | 0.94Comment: Testing | % | EXTERNAL | | | | performed at [facility];[address] | | LAB | | | | [address];[place] | | | | | | [address] | | | | + + + + + + | Absolute | 3.48Comment: Testing | 1.90 - 7.40 | EXTERNAL | | | Segmented | performed at [facility];[address] | K/uL | LAB | | | Neutrophils | [address];[place] | | | | | | [address] | | | | + + + + + + | Absolute | 3.11Comment: Testing | 1.00 - 3.90 | EXTERNAL | | | Lymphocytes | performed at [facility];[address] | K/uL | LAB | | | | [address];[place] | | | | | | [address] | | | | + + + + + + | Absolute | 0.81 (H)Comment: Testing | 0.00 - 0.80 | EXTERNAL | | | Monocytes | performed at [facility];[address] | K/uL | LAB | | | | [address];[place] | | | | | | [address] | | | | + + + + + + | Absolute | 0.32Comment: Testing | 0.00 - 0.50 | EXTERNAL | | | Eosinophils | performed at [facility];[address] | K/uL | LAB | | | | [address];[place] | | | | | | [address] | | | | + + + + + + | Absolute | 0.07Comment: Testing | 0.00 - 0.10 | EXTERNAL | | | Basophils | performed at [facility];[address] | K/uL | LAB | | | | [address];[place] | | | | | | [address] | | | | + + + [...] EXTERNAL | | | | performed at [facility];[address] | mmol/L | LAB | | | | [address];[place] | | | | | | [address] | | | | + + + + + + | K | 3.2 (L)Comment: Testing | 3.5 - 4.9 | EXTERNAL | | | | performed at [facility];[address] | mmol/L | LAB | | | | [address];[place] | | | | | | [address] | | | | + + + + + + | Cl | 104Comment: Testing | 99 - 109 mmol/L | EXTERNAL | | | | performed at [facility];[address] | | LAB | | | | [address];[place] | | | | | | [address] | | | | + + + + + + | CO2 | 31Comment: Testing | 23 - 32 mmol/L | EXTERNAL | | | | performed at [facility];[address] | | LAB | | | | [address];[place] | | | | | | [address] | | | | + + + + + + | Anion Gap | 9Comment: Testing | 5 - 20 mmol/L | EXTERNAL | | | | performed at [facility];[address] | | LAB | | | | [address];[place] | | | | | | [address] | | | | + + + + + + | Glucose, | 160 (H)Comment: Testing | 65 - 99 mg/dL | EXTERNAL | | | Fasting | performed at [facility];[address] | | LAB | | | | [address];[place] | | | | | | [address] | | | | + + + + + + | BUN | 14Comment: Testing | 8 - 25 mg/dL | EXTERNAL | | | | performed at [facility];[address] | | LAB | | | | [address];[place] | | | | | | [address] | | | | + + + + + + | Creatinine | 0.91Comment: Testing | 0.70 - 1.30 | EXTERNAL | | | | performed at [facility];[address] | mg/dL | LAB | | | | [address];[place] | | | | | | [address] | | | | + + + + + + | BUN/Creatin | 15Comment: Testing | | EXTERNAL | | | ine Ratio | performed at [facility];[address] | | LAB | | | | [address];[place] | | | | | | [address] | | | | + + + + + + | Calcium | 8.7Comment: Testing | 8.5 - 10.5 | EXTERNAL | | | | performed at [facility];[address] | mg/dL | LAB | | | | [address];[place] | | | | | | [address] | | | | + + + + + + | Protein, | 7.2Comment: Testing | 6.3 - 8.2 g/dL | EXTERNAL | | | Total | performed at [facility];[address] | | LAB | | | | [address];[place] | | | | | | [address] | | | | + + + + + + | Albumin | 3.3 (L)Comment: Testing | 3.6 - 5.0 g/dL | EXTERNAL | | | | performed at [facility];[address] | | LAB | | | | [address];[place] | | | | | | [address] | | | | + + + + + + | Globulin | 3.9Comment: Testing | 1.3 - 4.9 g/dL | EXTERNAL | | | | performed at [facility];[address] | | LAB | | | | [address];[place] | | | | | | [address] | | | | + + + + + + | A/G Ratio | 0.8 (L)Comment: Testing | 1.0 - 2.4 | EXTERNAL | | | | performed at [facility];[address] | | LAB | | | | [address];[place] | | | | | | [address] | | | | + + + + + + | Bilirubin | 0.3Comment: Testing | 0.1 - 1.5 mg/dL | EXTERNAL | | | Total | performed at [facility];[address] | | LAB | | | | [address];[place] | | | | | | [address] | | | | + + + + + + | ALP, | 91Comment: Testing | 35 - 115 U/L | EXTERNAL | | | External | performed at [facility];[address] | | LAB | | | | [address];[place] | | | | | | [address] | | | | + + + + + + | AST | 15Comment: Testing | 10 - 45 U/L | EXTERNAL | | | | performed at [facility];[address] | | LAB | | | | [address];[place] | | | | | | [address] | | | | + + + + + + | ALT | 26Comment: Testing | 10 - 65 U/L | EXTERNAL | | | | performed at [facility];[address] | | LAB | | | | [address];[place] | | | | | | [address] | | | | + + + [...] | | | | | | at [facility];[address] [place] [address] | | | | | | [facility];[place] [address] | | | | + + + [...]
--- OUTSIDE RECORDS SUMMARY | ~2019-10-12 | XMS | Encounter Summary ---
Demographics + + + | Address | [address] | | | [place] [address] | + + + | Home Phone [...] + | Sammi Kohler | ECON | [place] [address] | | + + + + + Care Team Providers + +------+ + | Care Repeater Operator Name | Role | Phone | + +------+ + | Mireya Pack NP | PCP | | + +------+ + Reason for Visit +--------+ + | Reason | Comments | +--------+ + | SNF | Routine 30 day MD Evaluation | +--------+ + Encounter Details +--------+ + + + + | Date | Type | Department | Care Team | Description | +--------+ + + + + | 05/21/ | Skilled | [facility] | Reinaldo Sanchez | Chronic obstructive | | 2020 | Nursing | [facility] | MD Xander [address] | pulmonary disease, | | | Facility | [facility] [address] | unspecified COPD | | | | [address] | [place] [address] | type ([facility]) (Primary | | | | [place], [place] | [phone] | Dx); [place] | | | | [address] | | (obstructive sleep | | | | [phone] | | apnea); Type 2 | | | | | | diabetes mellitus | | | | | | with diabetic | | | | | | polyneuropathy, with | | | | | | long-term current | | | | | | use of insulin | | | | | | ([facility]); Essential | | | | | | hypertension; Atrial | | | | | | fibrillation with | | | | | | RVR ([facility]) | +--------+ + + + + [...] + + + | Blood Pressure | 133/63 | 05/22/2019 7:08 AM | | | | | PDT | | + + + + + | Pulse | 83 | 05/22/2019 7:08 AM | | | | | PDT | | + + + + + | Temperature | 37.9 C (100.3 F) | 05/22/2019 7:08 AM | | | | | PDT | | + + + + + | Respiratory Rate | 20 | 05/22/2019 7:08 AM | | | | | PDT | | + + + + + | Oxygen Saturation | 97% | 05/22/2019 7:08 AM | | | | | PDT | | + + + + + | Inhaled Oxygen | - | - | | | Concentration | | | | + + + + + | Weight | 103.4 kg (228 lb) | 05/22/2019 7:08 AM | | | | | PDT | | + + + + + | Height | 167.6 cm (5' 6") | 05/22/2019 7:08 AM | | | | | PDT | | + + + + + | Body Mass Index | 36.8 | 05/22/2019 7:08 AM | | | [...] documented as of this encounter Progress Notes Reinaldo Sanchez MD - 05/22/2019 9:20 AM PDTFormatting of this note might be differen t from the original. Subjective: Patient ID: Kevyn Guzman is a 63 y.o. male. Chief Complaint Patient presents with SNF Routine 30 day MD Evaluation HPI Resident of [facility] with a qualifying stay at [facility] from to 05-17-2019, presented with fall. Admitted for fall from ground level. Patient t o continue on Eliquis, unless hematoma expands. He is to continue on Coreg and Apixiban for a-fib. Discharged to SNF for PT/OT, medication management and assisted. History: Past Medical History: Diagnosis Date Acute pulmonary embolism (HCC) 10/14/2017 Anxiety ARF (acute renal failure) ([facility]) 03/02/2013 Atrial fibrillation (HCC) Basal cell carcinoma 09/26/2012 arm and back COPD (chronic obstructive pulmonary disease) ([facility]) 03/02/2013 hypoxemia on 2 lts nc Depression Development delay Diabetes mellitus type II DVT (deep venous thrombosis) ([facility]) 03/29/2018 Facial droop 07/08/2013 GIB (gastrointestinal [...] - CHOLECYSTECTOMY; Surgeon: Jevon Vargas DO; Location: [facility] MAIN OR; Service: General; Laterality: N/A; COLONOSCOPY COLONOSCOPY 03/04/2013 Procedure: COLONOSCOPY; Surgeon: Howie Gibson MD; Location: [facility] ENDOSCOPY; Service: Gastroen terology; Laterality: [...] FROZEN SECTION; Surgeon: Sy murcia MD; Location: [facility] MAIN OR; Service: Plastics; Laterality: Left; forearm SKIN BIOPSY SKIN CANCER EXCISION Left 10/10/2012 Procedure: EXCISION - SKIN CANCER; Surgeon: Sy Fierro MD; Location: [facility] MAIN OR; Service: Plastics; Laterality: Left; upper arm and upper back w/frozen section UPPER GASTROINTESTINAL ENDOSCOPY UPPER GASTROINTESTINAL ENDOSCOPY 03/03/2013 Procedure: ESOPHAGOGASTRODUODENOSCOPY; Surgeon: Howie Gibson MD; Location: [facility] ENDOSCOPY; Se rvice: Gastroenterology; Laterality: [...] No current facility-administered medications for this visit. I have reviewed the above patients history. Review of Systems Constitutional: Positive for activity change. Negative for chills, fatigue, fever and unexp ected weight change. Respiratory: Negative for cough, chest tightness and wheezing. Cardiovascular: Negative for chest pain and leg swelling. Gastrointestinal: Negative for abdominal distention, abdominal pain, constipation and diarr hea. Genitourinary: Negative for difficulty urinating. Musculoskeletal: Positive for arthralgias, gait problem, joint swelling and myalgias. Negat aissatou for back pain. Skin: Negative for rash and wound. Neurological: Positive for weakness. Psychiatric/Behavioral: Negative for dysphoric mood and sleep disturbance. The patient is n ot nervous/anxious. Objective: BP 133/63 | Pulse 83 | Temp 37.9 C (100.3 F) | Resp 20 | Ht 1.676 m (5' 6") | Wt 1 03.4 kg (228 lb) | SpO2 97% | BMI 36.80 kg/m Physical Exam Constitutional: General: He is not in acute distress. Appearance: He is well-developed. He is not diaphoretic. Comments: Morbid obese debilitated HENT: Head: Normocephalic and atraumatic. Nose: Nose normal. Mouth/Throat: Pharynx: No oropharyngeal exudate. Eyes: General: No scleral icterus. Right eye: No discharge. Left eye: No discharge. Conjunctiva/sclera: Conjunctivae normal. Neck: Musculoskeletal: Normal range of motion and neck supple. Thyroid: No thyromegaly. Vascular: No JVD. Trachea: No tracheal deviation. Cardiovascular: Rate and Rhythm: Normal rate and regular rhythm. Heart sounds: No murmur. No friction rub. No gallop. Pulmonary: Effort: Pulmonary effort is normal. No respiratory distress. Breath sounds: Normal breath sounds. No stridor. No wheezing. Abdominal: General: Bowel sounds are normal. Palpations: Abdomen is soft. Tenderness: There is no abdominal tenderness. Hernia: No hernia is present. Musculoskeletal: Normal range of motion. General: No deformity. Comments: hematoma Lymphadenopathy: Cervical: No cervical adenopathy. Skin: General: Skin is warm and dry. Coloration: Skin is not pale. Findings: No erythema or rash. Neurological: Mental Status: He is alert and oriented to person, place, and time. Cranial Nerves: No cranial nerve deficit. Sensory: No sensory deficit. Coordination: Coordination normal. Psychiatric: Behavior: Behavior normal. Assessment: Chemistry Component Value Date/Time NA 139 05/16/2019 0429 K 4.1 05/16/2019 0429 CL 107 05/16/2019 0429 CO2 26 05/16/2019 0429 GLU 294 (H) 05/16/2019 0429 GLU 337 (A) 10/12/2018 0823 BUN 19 05/16/2019 042 CREA 0.9 05/16/2019 042 ANIONGAP 10 05/16/2019 0429 Component Value Date/Time CALCIUM 9.2 05/16/2019 0429 ALKPHOS 129 (H) 05/16/2019 0429 AST 20 05/16/2019 042 ALT 24 05/16/2019 0429 ALBUMIN 2.5 (L) 05/16/2019 0429 BILITOT 0.5 09/21/2018 1810 Lab Results Component Value Date EGFR >60 05/16/2019 GLUF 292 (H) 09/21/2018 GLOB 2.7 09/21/2018 Lab Results Component Value Date WBC 10.82 05/18/2019 HGB 11.4 (L) 05/18/2019 HCT 34.1 (L) 05/18/2019 MCV 85.0 05/18/2019 PLT 207 05/18/2019 No results found for: [id number] No results found for: FOLATE No results [...] 280 (H) 12/13/2018 TRIG 498 (H) 10/12/2018 Plan: History: ASSESSMENT AND PLAN: 1. The patient was interviewed and examined. Medical record studied. Good rehabilitation candidate. 2. Developmental delay quite evident on examination. 3. Chronic obstructive pulmonary disease, not on oxygen, but seems to be oxygenating well enough without it right now. 4. Obstructive sleep apnea, likely complicated by his severe obesity and body habitus. He is noncompliant with this because he does not like the way it sounds at night. 5. Hypertension history of medical noncompliance. Blood pressure is currently stable and under good control. 6. Hyperglycemia secondary to medical noncompliance. Blood sugars are currently under poo r control. Most recently 294. 7. History of acute renal failure, was likely largely situational/prerenal. Electrolytes currently normal. BUN and creatinine are normal. 8. Hypoalbuminemia, likely nutritional. Should improve with better nutrition. 9. Draumatic hypertriglyceridemia, 496. Clearly, would benefit from diet, exercise, weigh t loss. Also, this is probably somewhat erroneously elevated because of his uncontrolled di abetes at the time that the lab was done. He is already on maximum dose pravastatin and fib rate. The only thing to add could potentially be omega-3 fatty acids, but I have not found that to be very effective. Will do better with diet, exercise, weight loss and better cont rol of the diabetes. 10. Fall with hematoma. The leg was heavily bandaged. All I could really examine was his t oes. Those seemed fine. documented in th is encounter Plan of Treatment +--------+ + + + + | Date | Type | Specialty | Care Team | Description | +--------+ + + + + | 10/16/ | Anti-coag | Anticoagulation | Brittany Zaragoza | | | 2019 | visit | | [address] | | | | | | [place], | | | | | | [place] [address] | | | | | | [phone] | | | | | | | | +--------+ + + + + documented as of this encounter Visit Diagnoses + + | Diagnosis | + + | Chronic obstructive pulmonary disease, unspecified COPD type (HCC) - Primary | + + | WARD (obstructive sleep apnea) Obstructive sleep apnea (adult) (pediatric) | + + | Type 2 diabetes mellitus with diabetic polyneuropathy, with long-term current use of | | insulin ([facility]) | + + | Essential hypertension Unspecified essential hypertension | + + | Atrial fibrillation with RVR ([facility]) Atrial fibrillation | + + documented in this encounter
--- OUTSIDE RECORDS SUMMARY | ~2019-10-12 | XMS | Encounter Summary ---
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 | Role | Phone | + +------+ + PCP | Unavailable | + +------+ + Encounter Details +--------+ + + + + | Date | Type | Department | Care Team | Description | +--------+ + + + + | 03/01/ | Emergency | [facility] | Robert Salmon | Lower extremity | | 2015 | | [facility] | E, DO [address] | edema | | | | EMERGENCY CENTER | [address] | | | | | [address] | [place], [place] | | | | | [place], [place] | [address] | | | | | [address] | [phone] | | | | | [phone] | | | +--------+ + + + [...] ED Notes Conversion Transaction, Provider Unknown - 03/01/2014 9:44 AM PSTFormatting of this note harmeet díazt be different from the original. ED Notes by Bambi Gama RN at 03/01/14943 Author: Bambi Gama RN Service: (none) Author Type: Registered Nurse Filed: 03/01/14943 Date of Service: 03/01/14943 Status: Signed Pie Dough Roller: Bambi Gama RN (Registered Nurse) Blood drawn by lab phlebo Bambi Gama RN 03/01/14943 Robert Carballo DO - 03/01/2014 9:16 AM PSTFormatting of this note might be different from t he original. ED Provider Notes by Robert Salmon DO at 03/01/14915 Author: Robert Salmon DO Service: Emergency Department Author Type: Physician Filed: 03/01/14 2133 Date of Service: 03/01/14915 Status: Signed Pie Dough Roller: Robert Salmon DO (Physician) Procedures Additional Documentation Procedures [facility] Department of Emergency Medicine 9:18 AM History of Present Illness Patient Identification Norah Gr is a 58 y.o. male. Patient information was obtained from patient. History/Exam limitations: none. Patient presented to the Emergency Department by: Car History of Presenting Illness The patient is a 58 y.o. year old male presenting with Chief Complaint Patient presents with Leg Swelling leg swelling, pt part of consistent care program. seen in ED 9 times last month . Location- Bilateral legs Onset- Last night Duration- Constant Severity/Character- Moderate Worse with- nothing Denies- redness, urinary problems Context- The patient was taking a shower last night when he noticed bilateral leg swelling. He has not had similar problems previously. He also complains of low back pain, pain in th e back of his calves, and light fever. He states he went to Urgent Care first but was told t o come here. He denies any history of CHF or kidney problems. PMHx: anxiety, diabetes PCP: JERRELL GUTIÉRREZ Past Medical History Diagnosis [...] - CHOLECYSTECTOMY; Surgeon: Jevon Vargas DO; Location: [facility] MAIN OR; Service: General; Laterality: N/A; Abdominal surgery Cholecystectomy Skin cancer excision 10/10/2012 Procedure: EXCISION - SKIN CANCER; Surgeon: Sy Fierro MD; Location: [facility] MAIN OR ; Service: Plastics; Laterality: Left; upper arm and upper back w/frozen section Esophagogastroduodenoscopy 03/03/2013 Procedure: ESOPHAGOGASTRODUODENOSCOPY; Surgeon: Howie Gibson MD; Location: [facility] ENDOSCOPY; S ervice: Gastroenterology; Laterality: N/A; Colonoscopy 03/04/2013 Procedure: COLONOSCOPY; Surgeon: Howie Gibson MD; Location: [facility] ENDOSCOPY; Service: Gastroe nterology; Laterality: N/A; Upper gastrointestinal endoscopy Skin biopsy Hernia repair 07/03/2013 Procedure: LAPAROSCOPIC - HERNIA - INCISIONAL; Surgeon: Jevon Vargas DO; Location: [facility] MAIN OR; Service: General; Laterality: N/A; Prior to Admission medications Medication Sig Start Date End Date Taking? Authorizing Provider Albuterol Sulfate (VENTOLIN HFA IN) Inhale 2 puffs into the lungs as needed. 108 mcg/act Historical Provider Uwlcd-M-Auquctqvkryst (BEANO) TABS Take 150 Units by mouth [...] daily. 180 mg at hs 11/30/13 11/30/14 [facility] carlyn Mae MD docusate sodium (COLACE) [...] 100 mg by mouth nightly. Historical Provider ohhaisrqw-vdbpbskq-gdcxnnkid hydroxide-simethicone Take 40 mLs by mouth daily [...] Narrative Lives in fci, IADL, full code Family History Problem Relation Age of Onset Heart disease Father Heart disease Sister Diabetes type II Sister Heart Problems Brother Review of Systems Constitutional: Positive for "light" fever Negative for chills Eyes: Negative for vision changes Nose: Negative for congestion, nosebleeds Throat: Negative for sore throat CV/Resp: Negative for chest pain, yofnoanur-yv-pewzix, cough GI: Negative for abdominal pain, nausea, vomiting, or diarrhea : Negative for urinary problems Musculoskeletal: Positive for bilateral calf pain and swelling, low back pain Negative for joint pain Skin: Negative for rash Neuro/Psych: Negative for headache Endo/heme/Lymph: Negative for swollen lymph nodes, easy bruising All other systems reviewed and negative except as noted. Physical Exam BP 136/63 | Pulse 79 | Temp(Src) 97.1 F (36.2 C) (Oral) | Resp 16 | SpO2 90% Vital signs interpretation: Normal Pulse Oximetry interpretation: Normal General: Alert, in no apparent distress Eyes: Normal inspection, pupils equal and round, non-icteric ENT: Ears normal Nose normal Moist mucous membranes Neck: Normal inspection Supple Cardiovasc: Rate and rhythm normal No murmurs Respiratory: Breath sounds normal bilaterally No rales, wheezing or rhonchi Abdomen: Soft, non-tender, non-distended No guarding or rebound Genitourinary: Deferred Rectal exam: Deferred Back: Normal inspection Extremities: 2+ pitting edema to the bilateral lower extremities No swelling or redness Skin: Color normal Warm and dry No rash Neuro: Alert, no AMS No gross motor/sensory deficits Moving all extremities Medical Decision Making and Emergency Department Course ED Department Course Patient presents to ED with complaints of bilateral leg swelling. After taking a thorough h istory and prior to performing a physical exam, symptomatically treating the patient, and or dering any necessary labs or diagnostic studies that may aid in narrowing my differential, m y initial DDx includes, but is not limited to: CHF, PE, DVT, pericarditis, thrombophlebitis, ARF, CRF, vs other. Will order labs, CXR, and reevaluate the patient. Review of vitals BP 136/63 | Pulse 79 | Temp(Src) 97.1 F (36.2 C) (Oral) | Resp 16 | Sp O2 90% 9:39 AM CXR reviewed. No acute cardiopulmonary process. 10:19 AM Labs reviewed. Mildly anemic. Patient reevaluation. Patient is stable and feeling better at this time. I recommended roberto ent talking with pcp about changing amlodipine to another medication as this can cause leg s welling. Norah was evaluated in the emergency department through taking a thorough history of presen t illness, past medical history including medical conditions, current medications, allergies to medications, social history, and family history. A physical exam was performed. Throug h incorporating the history of present illness and physical exam findings, clinical judgment was used to determine if any diagnostic tests or imaging was necessary. Once the workup wa s complete and the patient had been treated, he was found to be in good clinical condition o n re-assessment. All results that may have been resulted were explained to Norah and bishnu pereyra instruction was given to the patient regarding their diagnosis and what symptoms would nec essitate a prompt return to the emergency department. oNrah voiced understanding of the abo ve instructions and was discharged in good clinical condition to follow up with their primar y care provider in 1-2 days and/or any specialist that may have been referred. Norah will t bryon any prescribed or recommended OTC medications for symptom relief. Although I have many worrisome diagnoses listed above in my initial differential, my differ ential has been narrowed through taking a history of present illness, performing a physical exam, and interpreting any labs and/or diagonstic studies that may have been ordered and at this time I feel the patient most likely has lower extremity edema and I will treat deena delgado. Filed Vitals: 03/01/14 0922 03/01/14 0955 03/01/14 1106 BP: 136/63 140/62 Pulse: 79 66 Temp: 97.1 F (36.2 C) TempSrc: Oral Resp: 16 16 SpO2: 90% 96% 96% Records Reviewed Old medical records. Nursing notes. Laboratory Evaluation Results Procedure Component Value Ref Range Date/Time Comprehensive metabolic panel [[id number]] (Abnormal) Collected: 03/01/14944 Order Status: Completed Updated: 03/01/141018 Specimen Information: Blood SODIUM 142 135 - 143 mmol/L POTASSIUM 3.9 3.5 - 4.9 mmol/L CHLORIDE 108 99 - 109 mmol/L CO2 28 23 - 32 mmol/L ANION GAP AGAP 10 5 - 20 mmol/L GLUCOSE 124 (H) 65 - 99 mg/dL BUN 17 8 - 25 mg/dL CREATININE 1.20 0.70 - 1.30 mg/dL BUN/CREAT 14 CALCIUM 8.8 8.5 - 10.5 mg/dL TOTAL PROTEIN 6.8 6.3 - 8.2 g/dL Albumin 3.2 (L) 3.6 - 5.0 g/dL GLOBULIN 3.6 1.3 - 4.9 g/dL A/G 0.9 (L) 1.0 - 2.4 TBIL 0.2 0.1 - 1.5 mg/dL ALK PHOS 78 35 - 115 U/L AST 14 10 - 45 U/L ALT 19 10 - 65 U/L EGFR >60 >60 mL/min/1.73m2 BNP [[id number]] Collected: 03/01/14944 Order Status: Completed Updated: 03/01/141014 Specimen Information: Blood BRAIN NATRIURETIC PEPTIDE 6.9 0 - 100 pg/mL CBC with differential [[id number]] (Abnormal) Collected: 03/01/14944 Order Status: Completed Updated: 03/01/14958 Specimen Information: Blood WBC 8.2 3.8 - 11.0 K/uL RBC 4.63 4.20 - 5.70 M/uL HGB 11.8 (L) 13.2 - 17.0 g/dL HCT 36.6 (L) 39.0 - 50.0 % MCV 79.1 (L) 80.0 - 100.0 fl MCH 25.5 (L) 27.0 - 34.0 pg MCHC 32.2 32.0 - 35.5 g/dL RDW SD 42.9 37 - 53 fl PLT 261 150 - 400 K/uL MPV 7.4 fl DIFF TYPE AUTOMATED NEUTROPHILS 63.8 % LYMPHOCYTES 22.9 % MONOCYTES 9.9 % EOSINOPHILS 2.7 % BASOPHILS 0.7 % NEUTROPHILS ABS 5.2 1.9 - 7.4 K/uL LYMPHOCYTES ABS 1.9 1.0 - 3.9 K/uL MONOCYTES ABS 0.8 0 - 0.8 K/uL EOSINOPHILS ABS 0.2 0 - 0.5 K/uL BASOPHILS ABS 0.1 0 - 0.1 K/uL I personally reviewed the lab results and they have been posted to the chart. Pertinent po sitive and negative findings have been addressed appropriately and I have discussed any abno rmal labs with the patient. Radiology and EKG Evaluation Imaging Results XR chest PA and lateral (Final result) Result time: 03/01/14 09:39:23 Final result by Rad Results In Richard (03/01/14 09:39:23) Impression: 1. No acute cardiopulmonary process. Narrative: NORAH GR 1955 58 years Male XR CHEST 2 VIEW FRONTAL AND LATERAL 03/01/2014 9:36 AM INDICATION: Shortness of breath COMPARISON: February 04, 2014 TECHNIQUE: Two view chest, PA and lateral views FINDINGS: The cardiomediastinal contours are normal. There is no mediastinal widening or s hift. No pneumothorax or effusion. The lungs are clear with no focal consolidation or pulm onary nodules. 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 ED Diagnosis Final diagnosis Lower extremity edema Disposition: ED Disposition Discharge Condition at discharge: Stable Follow-up Information Follow up With Details Comments Contact Info Jerrell Gutiérrez DO Discharge Medications: Discharge Medication List as of 03/01/2014 11:03 AM This chart has been created using [employer] Speech Recognition software. The chart has been reviewed and there may still exist sound alike word errors. Attending Note: Documentation assistance provided by Irving Myers (Scribe). Information recorded by the scribe has been reviewed and validated by me. I ag ree with its contents. DO Robert Handley DO 03/01/14 2133 documente d in this encounter Plan of Treatment +--------+ + + + + | Date | Type | Specialty | Care Team | Description | +--------+ + + + + | 10/16/ | Anti-coag | Anticoagulation | Brittany Zaragoza | | | 2020 | visit | | [address] | | | | | | [place], | | | | | | [place] [address] | | | | | | [phone] | | | | | | | | +--------+ + + + + documented as of this encounter Procedures + +--------+ + + + | Procedure Name | Priori | Date/Time | Associated Diagnosis | Comments | | | ty | | | | + +--------+ + + + | EXTERNAL LAB: CBC | Routin | 03/01/2014 | | Results for this | | | e | 9:45 AM | | procedure are in the | | | | PST | | results section. | + +--------+ + + + | B TYPE NATRIURETIC | Routin | 03/01/2014 | | Results for this | | PEPTIDE | e | 9:45 AM | | procedure are in the | | | | PST | | results section. | + +--------+ + + + | COMPREHENSIVE | Routin | 03/01/2014 | | Results for this | | METABOLIC PANEL | e | 9:45 AM | | procedure are in the | | | | PST | | results section. | + +--------+ + + + | XR CHEST 2 VIEWS | Routin | 03/01/2014 | | Results for this | | | e | 9:36 AM | | procedure are in the | | | | PST | | results section. | + +--------+ + + + documented in this encounter Results External Lab: CBC (03/01/2014 9:45 AM PST) + + + + + + | Component | Value | Ref Range | Performed | Pathologist | | | | | At | Signature | + + + + + + | WBC | 8.2Comment: Testing | 3.8 - 11.0 K/uL | EXTERNAL | | | | performed at [facility];[address] | | LAB | | | | [address];[place] | | | | | | [address] | | | | + + + + + + | Non- | 4.63Comment: Testing | 4.20 - 5.70 | EXTERNAL | | | Red Blood | performed at [facility];[address] | M/uL | LAB | | | Cells | [address];[place] | | | | | Counted | [id number] | | | | + + + + + + | Hemoglobin | 11.8 (L)Comment: Testing | 13.2 - 17.0 | EXTERNAL | | | | performed at [facility];[address] | g/dL | LAB | | | | [address];[place] | | | | | | [address] | | | | + + + + + + | Hematocrit, | 36.6 (L)Comment: Testing | 39.0 - 50.0 % | EXTERNAL | | | POC | performed at [facility];[address] | | LAB | | | | [address];[place] | | | | | | [address] | | | | + + + + + + | MCV | 79.1 (L)Comment: Testing | 80.0 - 100.0 fl | EXTERNAL | | | | performed at [facility];[address] | | LAB | | | | [address];[place] | | | | | | [address] | | | | + + + + + + | MCH | 25.5 (L)Comment: Testing | 27.0 - 34.0 pg | EXTERNAL | | | | performed at [facility];[address] | | LAB | | | | [address];[place] | | | | | | [address] | | | | + + + + + + | MCHC | 32.2Comment: Testing | 32.0 - 35.5 | EXTERNAL | | | | performed at [facility];[address] | g/dL | LAB | | | | [address];[place] | | | | | | [address] | | | | + + + + + + | RDW-CV | 42.9Comment: Testing | 37 - 53 fl | EXTERNAL | | | | performed at [facility];[address] | | LAB | | | | [address];[place] | | | | | | [address] | | | | + + + + + + | Platelet | 261Comment: Testing | 150 - 400 K/uL | EXTERNAL | | | Count | performed at [facility];[address] | | LAB | | | Plasma | [address];[place] | | | | | | [address] | | | | + + + + + + | MPV | 7.4Comment: Testing | fl | EXTERNAL | | | | performed at [facility];[address] | | LAB | | | | [address];[place] | | | | | | [address] | | | | + + + + + + | Differentia | AUTOMATEDComment: | | EXTERNAL | | | l Type | Testing performed at | | LAB | | | | [facility];[address];[place] [address] | | | | + + + + + + | % Segmented | 63.8Comment: Testing | % | EXTERNAL | | | | performed at [facility];[address] | | LAB | | | Neutrophils | [address];[place] | | | | | | [address] | | | | + + + + + + | % | 22.9Comment: Testing | % | EXTERNAL | | | Lymphocytes | performed at [facility];[address] | | LAB | | | | [address];[place] | | | | | | [address] | | | | + + + + + + | % Monocytes | 9.9Comment: Testing | % | EXTERNAL | | | | performed at [facility];[address] | | LAB | | | | [address];[place] | | | | | | [address] | | | | + + + + + + | % | 2.7Comment: Testing | % | EXTERNAL | | | Eosinophils | performed at [facility];[address] | | LAB | | | | [address];[place] | | | | | | [address] | | | | + + + + + + | % Basophils | 0.7Comment: Testing | % | EXTERNAL | | | | performed at [facility];[address] | | LAB | | | | [address];[place] | | | | | | [address] | | | | + + + + + + | Absolute | 5.2Comment: Testing | 1.9 - 7.4 K/uL | EXTERNAL | | | Segmented | performed at [facility];[address] | | LAB | | | Neutrophils | [address];[place] | | | | | | [address] | | | | + + + + + + | Absolute | 1.9Comment: Testing | 1.0 - 3.9 K/uL | EXTERNAL | | | Lymphocytes | performed at [facility];[address] | | LAB | | | | [address];[place] | | | | | | [address] | | | | + + + + + + | Absolute | 0.8Comment: Testing | 0 - 0.8 K/uL | EXTERNAL | | | Monocytes | performed at [facility];[address] | | LAB | | | | [address];[place] | | | | | | [address] | | | | + + + + + + | Absolute | 0.2Comment: Testing | 0 - 0.5 K/uL | EXTERNAL | | | Eosinophils | performed at [facility];[address] | | LAB | | | | [address];[place] | | | | | | [address] | | | | + + + + + + | Absolute | 0.1Comment: Testing | 0 - 0.1 K/uL | EXTERNAL | | | Basophils | performed at [facility];[address] | | LAB | | | | [address];[place] | | | | | | [address] | | | | + + + [...] +---------+ + + B Type Natriuretic Peptide (03/01/2014 9:45 AM PST) + + + + + + | Component | Value | Ref Range | Performed | Pathologist | | | | | At | Signature | + + + + + + | BNP | 6.9Comment: Testing | 0 - 100 pg/mL | EXTERNAL | | | | performed at [facility];[address] | | LAB | | | | [address];[place] | | | | | | [address] | | | | + + + [...] + +---------+ + + Comprehensive Metabolic Panel (03/01/2014 9:45 AM PST) + + + + + + | Component | Value | Ref Range | Performed | Pathologist | | | | | At | Signature | + + + + + + | Na | 142Comment: Testing | 135 - 143 | EXTERNAL | | | | performed at [facility];[address] | mmol/L | LAB | | | | [address];[place] | | | | | | [address] | | | | + + + + + + | K | 3.9Comment: Testing | 3.5 - 4.9 | EXTERNAL | | | | performed at [facility];[address] | mmol/L | LAB | | | | [address];[place] | | | | | | [address] | | | | + + + + + + | Cl | 108Comment: Testing | 99 - 109 mmol/L | EXTERNAL | | | | performed at [facility];[address] | | LAB | | | | [address];[place] | | | | | | [address] | | | | + + + + + + | CO2 | 28Comment: Testing | 23 - 32 mmol/L | EXTERNAL | | | | performed at [facility];[address] | | LAB | | | | [address];[place] | | | | | | [address] | | | | + + + + + + | Anion Gap | 10Comment: Testing | 5 - 20 mmol/L | EXTERNAL | | | | performed at [facility];[address] | | LAB | | | | [address];[place] | | | | | | [address] | | | | + + + + + + | Glucose, | 124 (H)Comment: Testing | 65 - 99 mg/dL | EXTERNAL | | | Fasting | performed at [facility];[address] | | LAB | | | | [address];[place] | | | | | | [address] | | | | + + + + + + | BUN | 17Comment: Testing | 8 - 25 mg/dL | EXTERNAL | | | | performed at [facility];[address] | | LAB | | | | [address];[place] | | | | | | [address] | | | | + + + + + + | Creatinine | 1.20Comment: Testing | 0.70 - 1.30 | EXTERNAL | | | | performed at [facility];[address] | mg/dL | LAB | | | | [address];[place] | | | | | | [address] | | | | + + + + + + | BUN/Creatin | 14Comment: Testing | | EXTERNAL | | | ine Ratio | performed at [facility];[address] | | LAB | | | | [address];[place] | | | | | | [address] | | | | + + + + + + | Calcium | 8.8Comment: NOTE NEW | 8.5 - 10.5 | EXTERNAL | | | | REFERENCE RANGETesting | mg/dL | LAB | | | | performed at [facility];[address] | | | | | | [address];[place] | | | | | | [address] | | | | + + + + + + | Protein, | 6.8Comment: Testing | 6.3 - 8.2 g/dL | EXTERNAL | | | Total | performed at [facility];[address] | | LAB | | | | [address];[place] | | | | | | [address] | | | | + + + + + + | Albumin | 3.2 (L)Comment: Testing | 3.6 - 5.0 g/dL | EXTERNAL | | | | performed at [facility];[address] | | LAB | | | | [address];[place] | | | | | | [address] | | | | + + + + + + | Globulin | 3.6Comment: Testing | 1.3 - 4.9 g/dL | EXTERNAL | | | | performed at [facility];[address] | | LAB | | | | [address];[place] | | | | | | [address] | | | | + + + + + + | A/G Ratio | 0.9 (L)Comment: Testing | 1.0 - 2.4 | EXTERNAL | | | | performed at [facility];[address] | | LAB | | | | [address];[place] | | | | | | [address] | | | | + + + + + + | Bilirubin | 0.2Comment: Testing | 0.1 - 1.5 mg/dL | EXTERNAL | | | Total | performed at [facility];[address] | | LAB | | | | [address];[place] | | | | | | [address] | | | | + + + + + + | ALP, | 78Comment: Testing | 35 - 115 U/L | EXTERNAL | | | External | performed at [facility];[address] | | LAB | | | | [address];[place] | | | | | | [address] | | | | + + + + + + | AST | 14Comment: Testing | 10 - 45 U/L | EXTERNAL | | | | performed at [facility];[address] | | LAB | | | | [address];[place] | | | | | | [address] | | | | + + + + + + | ALT | 19Comment: Testing | 10 - 65 U/L | EXTERNAL | | | | performed at [facility];[address] | | LAB | | | | [address] [facility];[place], [place] | | | | | | [address] | | | | + + + [...] | | | | | | at [facility];[address];[place] [address] | | | | + + + [...] +---------+ + + XR Chest 2 Vws (03/01/2014 9:36 AM PST) + + | Specimen | [...] VIEW FRONTAL | | | AND LATERAL 03/01/2014 9:36 AM INDICATION: Shortness of breath | | | COMPARISON: February 04, 2014 TECHNIQUE: Two view chest, PA and | | | lateral views FINDINGS: The cardiomediastinal contours are normal. | | | There is no mediastinal widening or shift. No pneumothorax or | | | effusion. The lungs are clear with no focal consolidation or | | | pulmonary nodules. Mild degenerative disc disease of the thoracic | | | spine is present. | | + + + + + | Procedure Note | + + | Joaquin Ramos - 09/20/2018 10:29 PM SHALONDA GR years MaleXR | | CHEST 2 VIEW FRONTAL AND LATERAL03/01/2014 9:36 AM INDICATION: Shortness of breath | | COMPARISON: February 04, 2014 TECHNIQUE: Two view chest, PA and lateral views FINDINGS: | | The cardiomediastinal contours are normal. There is no mediastinal widening or shift. | | No pneumothorax or effusion. The lungs are clear with no focal consolidation or | | pulmonary nodules. 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 | | IMPRESSION: 1. No acute cardiopulmonary process. | |COMPARISON: February 04, 2014 | | | |TECHNIQUE: Two view chest, PA and lateral views | | | |FINDINGS: The cardiomediastinal contours are normal. There is no mediastinal widening or s hift. No pneumothorax or effusion. The lungs are clear with no focal consolidation or pulm onary nodules. Mild | |degenerative disc disease of the thoracic spine is | |present. | | | |IMPRESSION: | |1. No acute cardiopulmonary process. | | | | | + + documented in this encounter Visit Diagnoses + + | Diagnosis | + + | Lower extremity edema Edema | + + documented in this encounter
--- OUTSIDE RECORDS SUMMARY | ~2019-10-12 | XMS | Encounter Summary ---
Demographics + + + | Address | [address] | | | [place] [address] | + + + | Home Phone [...] + | Sammi Kohler | ECON | [place] [address] | | + + + + + Care Team Providers + +------+ + | Care Carbon Plant Grinder Name | Role | Phone | + +------+ + PCP | Unavailable | + +------+ + Encounter Details +--------+ + + + + | Date | Type | Department | Care Team | Description | +--------+ + + + + | 03/15/ | Emergency | [facility] | Gurvinder Cruz, | Dizziness | | 2013 - | | [facility] | MD [address] | | | | | EMERGENCY CENTER | [place], [place] | | | 03/16/ | | [address] | [address] | | | 2012 | | [place], [place] | [phone] | | | | | [address] | | | | | | [phone] | | | +--------+ + + + [...] Progress Notes Conversion Transaction, Provider Unknown - 03/16/2012 10:01 AM PSTFormatting of this note m ight be different from the original. Progress Notes by Samy Shrestha RN at 03/16/12 100 Author: Samy Shrestha RN Service: (none) Author Type: Felt Tipping Machine Tender Filed: 03/16/12 100 Date of Service: 03/16/121000 Status: Signed Optical Glass Inspector: Samy Shrestha RN (Felt Tipping Machine Tender) Pt states his ex-mother in law will brass pickler and transport home SAMY SHRESTHA RN docume nted in this encounter ED Notes Conversion Transaction, Provider Unknown - 03/16/2012 10:01 AM PSTFormatting of this note m ight be different from the original. ED Notes by Onel Kenney RN at 03/16/12 100 Author: Onel Kenney RN Service: (none) Author Type: Registered Nurse Filed: 03/16/121000 Date of Service: 03/16/121000 Status: Signed Optical Glass Inspector: Onel Kenney RN (Registered Nurse) Pt. States his "ex mother-in law is picking him up" Onel Kenney RN 03/16/12 100 onver ivana Transaction, Provider Unknown - 03/16/2012 6:04 AM PST ED Notes by Jenn Moralez RN at 03/16/12603 Author: Jenn Moralez RN Service: (none) Author Type: Registered Nurse Filed: 03/16/12604 Date of Service: 03/16/12603 Status: Signed Optical Glass Inspector: Jenn Moralez RN (Registered Nurse) Pt does not have mode of transportation for a ride home at this time. Lead and Dr. Cruz notified. Pt will wait for social service to arrive. Jenn Gutierrez RN 03/16/12604 onver ivana Transaction, Provider Unknown - 03/16/2012 5:52 AM PST ED Notes by Jenn Moralez RN at 03/16/12551 Author: Jenn Moralez RN Service: (none) Author Type: Registered Nurse Filed: 03/16/12551 Date of Service: 03/16/12551 Status: Signed Optical Glass Inspector: Jenn Mroalez RN (Registered Nurse) Dr. Cruz at bedside. Jenn Gutierrez RN 03/16/1252 onver ivana Transaction, Provider Unknown - 03/16/2012 2:44 AM PST ED Notes by Jenn Moralez RN at 03/16/12243 Author: Jenn Moralez RN Service: (none) Author Type: Registered Nurse Filed: 03/16/12243 Date of Service: 03/16/12243 Status: Signed Optical Glass Inspector: Jenn Moralez RN (Registered Nurse) Patient is resting comfortably. Jenn Gutierrez RN 03/16/12243 onver ivana Transaction, Provider Unknown - 03/16/2012 2:03 AM PST ED Notes by Todd Duarte RN at 03/16/12202 Author: Todd Duarte RN Service: (none) Author Type: Registered Nurse Filed: 03/16/12222 Date of Service: 03/16/12202 Status: Signed Optical Glass Inspector: Todd Duarte RN (Registered Nurse) Patient incontinent of bowel. Patient's clothing removed and placed in belongings bag. [facility] provided patient. Patient used BSC and voided. Todd Duarte RN 03/16/12222 ran am, Gurvinder Anthony MD - 03/15/2012 11:37 PM PST ED Provider Notes by Gurvinder Cruz MD at 03/15/122336 Author: Gurvinder Cruz MD Service: (none) Author Type: Physician Filed: 03/17/12 0358 Date of Service: 03/15/122336 Status: Signed Optical Glass Inspector: Gurvinder Cruz MD (Physician) [facility] Department of Emergency Medicine History of Present Illness Patient Identification Norah Gr is a 56 y.o. male. Patient information was obtained from patient. History/Exam limitations: none. Patient presented to the Emergency Department by: Ambulance Chief Complaint Chief Complaint Patient presents with Dizziness 2336 The patient complains of falls and high blood pressure. Onset of symptoms was earlier yesterday, with a contiuing course since that time. The symptoms are described to be of mil d severity. The patient also complains of previous falls. The patient describes the quality and location of the symptoms as the following: "been dizzy... Feeling dizzy... Many times. Fell a few times too." When asked how many falls, pt wasn't sure how many. Care prior to arr ival consisted of nothing, with no relief. Past Medical History Diagnosis Date Diabetes mellitus type II Atrial fibrillation Hypertension Hyperlipidemia Anxiety Depression Past Surgical History Procedure Date Unlisted procedure arthroscopy Knee surgery Leg surgery LLE Colonoscopy Prior to Admission medications Medication Sig Start Date End Date Taking? Authorizing Provider atenolol (TENORMIN) 100 MG tablet Take by mouth. Yes Historical Provider cyanocobalamin 1000 [...] times daily with meals. Yes Historical Provider ATENOLOL PO Take 100 mg by mouth. Historical Provider ranitidine (ZANTAC) 150 MG tablet [...] Sister Review of Systems Constitutional: Negative for: Fever Positive for: fatigue Eyes: Negative for: decreased vision or [...] lymph nodes, easy bruising Physical Exam BP 214/100 | Pulse 76 | Temp(Src) 98 F (36.7 C) (Oral) | Ht 1.803 m (5' 11") | Wt 98.88 4 kg (218 lb) | BMI 30.40 kg/m2 | SpO2 95% Vitals: hypertensive Pulse Oximetry interpretation: Normal General: Alert, in no apparent distress, morbidly obese Eyes: Normal inspection, pupils equal and [...] and Emergency Department Course ED Department Course 2338 Pt in ED for multiple falls, dizziness. Pt has h/o hypertension and is morbidly obese. Pt is hypertensive, but otherwise normal (per his baseline). Pt isn't dehydrated, but still claims dizziness. Will order labs to rule out: layrinthitis, poorly-controlled hypertension , anxiety. 0452 Abd xr resulted: no free air, obstructive pattern, or pneumothorax. 0500 CT head resulted: No acute or focal intracranial process. Each time I have been in the room he has had a new complaint. He is stable. He will see his DR tomorrow. 0557 Pt hasn't had a stroke, chest is normal, multiple aches and paints, not orthostatic, w ill give him medication for his complaint of dizziness and d/c pt. Discussed plan of care. A ll questions and concerns addressed at this time. Pt verbalized understanding of d/c instruc tions and pt will be d/c home. Records Reviewed Old medical records. Nursing notes. Laboratory Evaluation Results Procedure Component Value Ref Range Date/Time Cardiac Panel [[id number]] (Abnormal) Collected:03/15/12 2315 Order Status:Completed Updated:03/15/12 2350 WBC 10.1 3.8 - 11.0 K/uL RBC 5.05 4.20 - 5.70 M/uL HGB 14.6 13.2 - 17.0 g/dL HCT 43.4 39.0 - 50.0 % MCV 86.0 80.0 - 100.0 fl MCH 28.9 27.0 - 34.0 pg MCHC 33.6 32.0 - 35.5 g/dL RDW SD 39.8 37 - 53 fl PLT 264 150 - 400 K/uL MPV 7.5 fl DIFF TYPE AUTOMATED NEUTROPHILS 52.7 40 - 75 % LYMPHOCYTES 32.0 15 - 48 % MONOCYTES 8.9 0 - 12 % EOSINOPHILS 5.7 0 - 7 % BASOPHILS 0.7 0 - 2 % NEUTROPHILS ABS 5.3 1.9 - 7.4 K/uL LYMPHOCYTES ABS 3.2 1.0 - 3.9 K/uL MONOCYTES ABS 0.9 (H) 0 - 0.8 K/uL EOSINOPHILS ABS 0.6 (H) 0 - 0.5 K/uL BASOPHILS ABS 0.1 0 - 0.1 K/uL SODIUM 143 135 - 143 mmol/L POTASSIUM 3.9 3.5 - 4.9 mmol/L CHLORIDE 106 99 - 109 mmol/L CO2 28 23 - 32 mmol/L ANION GAP AGAP 12 5 - 20 mmol/L GLUCOSE 164 (H) 65 - 99 mg/dL BUN 15 8 - 25 mg/dL CREATININE 0.99 0.70 - 1.30 mg/dL BUN/CREAT 15 CALCIUM 9.1 8.5 - 10.2 mg/dL TOTAL PROTEIN 7.5 6.3 - 8.2 g/dL Albumin 3.3 (L) 3.6 - 5.0 g/dL GLOBULIN 4.2 1.3 - 4.9 g/dL A/G 0.8 (L) 1.0 - 2.4 TBIL 0.5 0.1 - 1.5 mg/dL ALK PHOS 102 35 - 115 U/L AST 44 10 - 45 U/L ALT 44 10 - 65 U/L EGFR >60 >60 mL/min/1.73m2 CPK 89 55 - 400 U/L INR 1.0 0.9 - 3.5 APTT 25 23 - 32 seconds MMB 0.7 0.5 - 3.6 ng/mL CK-MB Index 0.8 POC cardiac troponin [[id number]] Collected:03/15/122319 Order Status:Completed Updated:03/15/12 2334 POC CARDIAC TROPONIN 0.01 0.00 - 0.10 ng/mL I personally reviewed the lab results and they have been posted to the chart. Pertinent po sitive and negative findings have been addressed appropriately. Radiology and EKG Evaluation Imaging Results XR Acute Abdominal Series (Final result) Result time:03/16/12 0755 Final result by Rad Results In Richard (03/16/12 07:55:07) Narrative: [facility]AH GR XR ABDOMEN ACUTE SERIES HISTORY: 56 years. Male. Abdominal pain. TECHNIQUE: Single frontal view the chest with upright and supine anterior views of the abdomen COMPARISON: 12/13/2011 chest x-ray. FINDINGS: The heart is normal in size. No pulmonary vascular congestion. No pneumothorax. No focal ai rspace disease or pleural effusion. Nonobstructed bowel gas pattern. No free intraperitoneal air. Properitoneal fat stripes are maintained. IMPRESSION: 1. No acute cardiopulmonary process. 2. Nonobstructed bowel gas pattern. Interpretation Documented by Gurvinder Cruz MD (03/16/12 0452, [facility] Emergency Department, Emergency Medicine) No free air No obstructive pattern. No pneumothorax. CT Head Non-Con (Final result) Result time:03/16/12617 Final result by Rad Results In Richard (03/16/12 06:18:57) Narrative: EXAM: HEAD CT EXAM DATE: 03/16/2012 01:19 AM CLINICAL HISTORY: Headache. Frequent falls. COMPARISON: 03/04/2012. TECHNIQUE: Multiaxial CT images were obtained from the foramen magnum to the vertex. IV con trast: None. FINDINGS: Parenchyma: No intracranial hemorrhage. No evidence of mass, midline shift or CT findings o f infarction. Morrissey-white differentiation is distinct. Extraaxial Spaces: Normal for age. No subdural or epidural collections identified. Ventricles: Normal in size and position. Sinuses: Imaged paranasal sinuses, orbits, and mastoids show no significant abnormality. Bones: No evidence of fracture or calvarial defect. Other: None. IMPRESSION: No acute or focal intracranial process. RADIA Electronically signed by Hermes Lopez MD on Mar 16 2012 6:18AM Preliminary result by Rad Results In Richard (03/16/12 01:40:55) Narrative: IMPRESSION: No acute or focal intracranial process. RADIA Read by Hermes Lopez MD on Mar 16 2012 1:40AM EK:18 Normal Sinus Rhythm. Rate: 77 Normal P wave, RICHARD Normal QRS, QRS axis Normal ST and T waves Interpreted by Gurvinder Cruz MD at time of service. ED Diagnosis Final diagnosis Dizziness Disposition: ED Disposition Orders Discharge Condition at discharge: Stable Follow-up Information Follow up With Details Comments Contact Info Jerrell Diego DO Call in 1 day to make an appointment for next week to address your frankie womack [address] [facility] [address] [facility] EMERGENCY DEPARTMENT If symptoms worsen [address] [facility] [address] Discharge Medications: New Prescriptions MECLIZINE (ANTIVERT) 50 MG TABLET Take 1 tablet by mouth 3 (three) times daily as neede d. Additional Documentation Procedures Attending Note: Documentation assistance provided by Elmo Montiel (Scribe). Information recorded by the scribe has been reviewed and validated by . Troy laughlin with its contents. MD Gurvinder Rodriguez MD 03/17/12 0358 onversio n Transaction, Provider Unknown - 03/15/2012 11:37 PM PSTFormatting of this note might be di fferent from the original. ED Notes by Jenn Moralez RN at 03/15/122336 Author: Jenn Moralez RN Service: (none) Author Type: Registered Nurse Filed: 03/15/122336 Date of Service: 03/15/122336 Status: Signed Optical Glass Inspector: Jenn Moralez RN (Registered Nurse) Dr. Cruz at bedside. Jenn Gutierrez RN 03/15/122336 onver ivana Transaction, Provider Unknown - 03/15/2012 10:55 PM PST ED Notes by Vadim Bernal RN at 03/15/122254 Author: Vadim Bernal RN Service: (none) Author Type: Registered Nurse Filed: 03/16/1249 Date of Service: 03/15/122254 Status: Signed Optical Glass Inspector: Vadim Bernal RN (Registered Nurse) Per medic 411 Patient complaining of dizziness and falls, feeling "lonely," stated he might want to be pu t in a home. 186/101, HR 78 NSR, 97% room air, glucose 182 Vadim Bernal RN 03/16/1249 docume nted in this encounter Plan of [...] | | | | | | [place] [address] | | | | | | [phone] | | | | | | | | +--------+ + + + + documented as of this encounter Procedures + +--------+ + + + | Procedure Name | Priori | Date/Time | Associated Diagnosis | Comments | | | ty | | | | + +--------+ + + + | XR ABDOMEN AP | Routin | 03/16/2012 | | Results for this | | UPRIGHT KUB AND PA | e | 4:41 AM | | procedure are in the | | CHEST | | PST | | results section. | + +--------+ + + + | CT HEAD WO CONTRAST | Routin | 03/16/2012 | | Results for this | | | e | 1:23 AM | | procedure are in the | | | | PST | | results section. | + +--------+ + + + documented in this encounter Results XR Abd Supine and Upright w 1 Vw Chest (03/16/2012 4:41 AM PST) + + | Specimen | + + | | + + + + + | Narrative | Performed At | + + + | [facility] XR ABDOMEN ACUTE SERIES HISTORY: 56 years. Male. | | | Abdominal pain. TECHNIQUE: Single frontal view the chest with | | | upright and supine anterior views of the abdomen COMPARISON: | | | 12/13/2011 chest x-ray. FINDINGS: The heart is normal in size. No | | | pulmonary vascular congestion. No pneumothorax. No focal airspace | | | disease or pleural effusion. Nonobstructed bowel gas pattern. No | | | free intraperitoneal air. Properitoneal fat stripes are maintained. | | | IMPRESSION: 1. No acute cardiopulmonary process. 2. | | | Nonobstructed bowel gas pattern. | | + + + + + | Procedure Note | + + | Richard, Rad Conversion - 09/28/2018 3:24 PM PDT [facility] GRXR ABDOMEN ACUTE SERIES | | HISTORY:56 years. Male. Abdominal pain. TECHNIQUE:Single frontal view the chest with | | upright and supine anterior views of the abdomen COMPARISON:12/13/2011 chest x-ray. | | FINDINGS:The heart is normal in size. No pulmonary vascular congestion. No pneumothorax. | | No focal airspace disease or pleural effusion. Nonobstructed bowel gas pattern. No free | | intraperitoneal air. Properitoneal fat stripes are maintained. IMPRESSION:1. No acute | | cardiopulmonary process.2. Nonobstructed bowel gas pattern. | | | |COMPARISON: | |12/13/2011 chest x-ray. | | | |FINDINGS: | |The heart is normal in size. No pulmonary vascular congestion. No pneumothorax. No focal ai rspace disease or pleural effusion. | | | |Nonobstructed bowel gas pattern. No free intraperitoneal air. Properitoneal fat stripes are maintained. | | | |IMPRESSION: | |1. No acute cardiopulmonary process. | |2. Nonobstructed bowel gas pattern. | | | | | + + CT Head wo Contrast (03/16/2012 1:23 AM PST) + + | Specimen | + + | | + + + + + | Narrative | Performed At | + + + | EXAM: HEAD CT EXAM DATE: 03/16/2012 01:19 AM CLINICAL | | | HISTORY: Headache. Frequent falls. COMPARISON: 03/04/2012. | | | TECHNIQUE: Multiaxial CT images were obtained from the foramen magnum | | | to the vertex. IV contrast: None. FINDINGS: Parenchyma: No | | | intracranial hemorrhage. No evidence of mass, midline shift or CT | | | findings of infarction. Morrissey-white differentiation is distinct. [...] Lopez MD on | | | Mar 16 2012 6:18AM | | + + + + + | Procedure Note | + + | Richard, Rad Conversion - 09/28/2018 3:24 PM PDT EXAM:HEAD CT EXAM DATE: 03/16/2012 01:19 | | AM CLINICAL HISTORY: Headache. Frequent falls. COMPARISON: 03/04/2012. TECHNIQUE: | | Multiaxial CT images were obtained from the foramen magnum to the vertex. IV contrast: | | None. FINDINGS:Parenchyma: No intracranial hemorrhage. No evidence of mass, midline | | shift or CT findings of infarction. Morrissey-white differentiation is distinct. Extraaxial | | Spaces: Normal for age. No subdural or epidural collections identified. Ventricles: | | Normal in size and position. Sinuses: Imaged paranasal sinuses, orbits, and mastoids | | show no significant abnormality. Bones: No evidence of fracture or calvarial defect. | | Other: None. IMPRESSION: No acute or focal intracranial process. RADIA Electronically | | signed by Hermes Lopez MD on Mar 16 2012 6:18AM | | | |FINDINGS: | |Parenchyma: No [...] signed by Hermes Lopez MD on Mar 16 2012 6:18AM | + + documented in this encounter Visit Diagnoses + + | Diagnosis | + + | Dizziness Dizziness and giddiness | + + documented in this encounter
--- OUTSIDE RECORDS SUMMARY | ~2019-10-12 | XMS | Encounter Summary ---
Demographics + + + | Address | [address] | | | [place] [address] | + + + | Home Phone [...] + | Sammi Kohler | ECON | [place] [address] | | + + + + + Care Team Providers + +------+ + | Care Job Spotter Name | Role | Phone | + +------+ + | Mireya Pack NP | PCP | | + +------+ + Reason for Visit +--------+ + | Reason | Comments | +--------+ + | Other | POLST form | +--------+ + Encounter Details +--------+ + + + + | Date | Type | Department | Care Team | Description | +--------+ + + + + | 05/19/ | Documentati | [facility] | Myriam Gary, | Other (POLST form) | | 2020 | on | [facility] [address] | Blasting Entry Specialist | | | | | [address] | | | | | | [place] | | | | | | [address] | | | | | | [phone] | | | +--------+ + + + [...] 2019 | visit | | [address] | | | | | | [place], | | | | | | [place] [address] | | | | | | [phone] | | | | | | | | +--------+ + + + + documented as of this encounter Visit Diagnoses Not on filedocumented in this encounter"
--- OUTSIDE RECORDS SUMMARY | ~2019-10-12 | XMS | Encounter Summary ---
Demographics + + + | Address | [address] | | | [place] [address] | + + + | Home Phone [...] Sammi Kohler | ECON | [place] [address] | | + + + + + Care Team Providers + +------+ + | Care Paunch Trimmer Name | Role | Phone | + [...] | | | | | | [facility] | [place] | | | | | | [address] | [address] | | | | | | [place], [place] | [facility] | | | | | | [address] | [place] [address] | | | | | | Phone: | Phone: | | | | | | [phone] | [phone] | | | | | | Fax: | Fax: | | | | | | [phone] | [phone] | + + + + + + + Encounter Details +--------+ + + + + | Date | Type | Department | Care Team | Description | +--------+ + + + + | 08/22/ | Anti-coag | [facility] | Mireya Pack, | Atrial fibrillation | | 2020 | visit | CENTER | CERTIFIED ATHLETIC TRAINER [address] | with RVR (HCC) | | | | ANTICOAGULATION | [address] [place], | | | | | [facility] [place] | [place] [address] | | | | | [address] | [phone] | | | | | [place], [place] | | | | | | [address] | Ninoska Knight, FLAVORING MAKER | | | | | [phone] | | | +--------+ + + + [...] of this encounter Patient Instructions Patient Instructions Goude, Ninoska J, FLAVORING MAKER - 08/23/2019 1:20 PM PDTDate: 08/23/2019 Todays INR: 1.0 Dosage: Warfarin 7.5 mg every Mon, Mon, Mon; 5 mg all other days documented in this encounter Progress Notes Ninoska Knight LPN - 08/23/2019 1:20 PM PDTS- Maintenance visit. INR check and warfarin dosing. Pt arrived by dial a ride. Pt states he takes his warfarin each am as he is drinking his juice. Pt cancelled last weeks appt due to not getting his warfarin until 5 days ago. Pt states HH usually comes twice each week and caregiver is there helping pt each Monday, and Monday. Pt states his eye sight isn't very good so he would rather someone else fill his pillbox. No medication changes reported. No illnesses or ER visits. No increased bruising or bleeding. O- INR 1.0 A- Sub Therapeutic INR Therapeutic Range: 2.0-3.0 P- Will increase the dosage. Increase dose 21% per Nolvia BOUCHER who will notify [facility] regarding warfarin concerns and dosing. New dosing sheet given to pt today. Recheck 10 days. Dosing: Warfarin 7.5 mg every Mon, Mon, Mon; 5 mg all other days documented in this encounter Plan of Treatment +--------+ + + + + | Date | Type | Specialty | Care Team | Description | +--------+ + + + + | 10/16/ | Anti-coag | Anticoagulation | Brittany Zaragoza | | | 2019 | visit | | [address] | | | | | | [address] [facility], | | | | | | [place] [address] | | | | | | [phone] | | | | | | | [...] | | | PDT | [facility] ([facility]) | results section. | + +--------+ + + + documented in this encounter Results POCT PT/INR christofertick (08/23/2019 12:50 PM PDT) + +-------+ + + + | Component | Value | Ref Range | Performed | Pathologist | | | | | At | Signature | + +-------+ + + + | INR, POC | 1.0 | 0.9 - 1.2 | | | + +-------+ + + + + + | Specimen | + + | Blood | + + documented in this encounter Visit Diagnoses + + | Diagnosis | + + | Atrial fibrillation with [facility] ([facility]) Atrial fibrillation | + + documented in this encounter"
--- OUTSIDE RECORDS SUMMARY | ~2019-10-12 | XMS | Encounter Summary ---
Demographics + + + | Address | [address] | | | [place] [address] | + + + | Home Phone [...] Sammi Kohler | ECON | [place] [address] | | + + + + + Care Team Providers + +------+ + | Care Clinical Nurse Specialist Name | Role | Phone | + +------+ + | Mireya Pack NP | PCP | | + +------+ + Reason for Visit + +--------+ + | Reason | Onset | Comments | | | Date | | + +--------+ + | Paperwork | 02/20/ | Decision making documents | | | 2020 | | + +--------+ + Encounter Details +--------+ + + + + | Date | Type | Department | Care Team | Description | +--------+ + + + + | 02/20/ | Telephone | [facility] | Mireya Pack, | Paperwork (Decision | | 2020 | | [facility] [address] | SCHOOL COUNSELLOR [address] | making documents) | | | | [address] | [address] [place], | | | | | [place], [place] | [place] [address] | | | | | [address] | [phone] | | | | | [phone] | | | +--------+ + + + [...] Miscellaneous Notes Telephone Encounter - Mel [place] Coffee Blender - 02/21/2019 4:00 PM PSTReceive d fax and scanned to [place] that is offsite with PCP. elephone Encounter - Mel [place] Coffee Blender - 02/21/2019 8:35 AM PSTCalled and left message, with clinic information, advisi kallie that we did not receive paperwork. Requested that it be refaxed to clinic. Provided main fax number [phone] as well as alternate fax [phone]. elephone Encounter - Patti Lee - 02/06 4:58 PM PSTMelissa with Adult Protective Services, is calling regarding Paperwork (D ecision making documents) and would like a call back. Additional Call Details: States she faxed over decision making documents on 02.25.19 and w lupe like to know if it has been received. Please call her back at [phone] (work cell). If this is a symptom based call, was patient offered triage? Not Applicable If this is a symptom based call and you were unable to immediately transfer the call to a ashley pascual excavator operator was caller made aware that if at [...] 2020 | visit | | [address] | | | | | | [address] [place], | | | | | | [place] [address] | | | | | | [phone] | | | | | | | [...]
--- OUTSIDE RECORDS SUMMARY | ~2019-10-12 | XMS | Encounter Summary ---
Demographics + + + | Address | [address] | | | [place] [address] | + + + | Home Phone [...] + | Sammi Kohler | ECON | [place] [address] | | + + + + + Care Team Providers + +------+ + | Care Chief Optometry Service Name | Role | Phone | + +------+ + PCP | Unavailable | + +------+ + Encounter Details +--------+ + + + + | Date | Type | Department | Care Team | Description | +--------+ + + + + | 09/21/ | Emergency | [facility] | Kevyn Don, | Post-op bleeding; | | 2012 | | [facility] | MD Anatoliy Camacho [facility] | Platelet dysfunction | | | | EMERGENCY CENTER | [place], [place] | due to drugs; | | | | [address] | [id number] | Anemia | | | | [place], [place] | | | | | | [address] | | | | | | [phone] | | | +--------+ + + + [...] ED Notes Conversion Transaction, Provider Unknown - 09/21/2012 5:59 AM PDTFormatting of this note m ight be different from the original. ED Notes by Itzel Hussein RN at 09/21/1259 Author: Itzel Hussein RN Service: (none) Author Type: Registered Nurse Filed: 09/21/12 0602 Date of Service: 09/21/12558 Status: Signed Process Eng: Itzel Hussein RN (Registered Nurse) Laceration repaired by Dr. Don with 2.0 ethilon by a figure eight stitch to lac above u mbilicus. Pt tolerated well. Applied multiple 2X2 and placed large cloth tape over. Pt di rected to change dressing in 1 day. Itzel Hussein RN 09/21/1202 onver ivana Transaction, Provider Unknown - 09/21/2012 5:44 AM PDT ED Notes by Itzel Hussein RN at 09/21/12543 Author: Itzel Hussein RN Service: (none) Author Type: Registered Nurse Filed: 09/21/12544 Date of Service: 09/21/12543 Status: Signed Process Eng: Itzel Hussein RN (Registered Nurse) Applied 4X4's with tape to small incision. Pt tolerated well. Itzel Hussein RN 09/21/1245 axweKevyn hines MD - 09/21/2012 5:16 AM PDT ED Provider Notes by Kevyn Don MD at 09/21/12515 Author: Kevyn Don MD Service: (none) Author Type: Physician Filed: 09/21/12 0559 Date of Service: 09/21/12515 Status: Signed Process Eng: Kevyn Don MD (Physician) [facility] Department of Emergency Medicine History of Present Illness Patient Identification Kevyn Guzman is a 56 y.o. male presenting with post operative bleeding Patient information was obtained from patient. History/Exam limitations: none. Patient presented to the Emergency Department Car Chief Complaint Chief Complaint Patient presents with Post-op Problem Pt here with report of bleeding from umbilical area x 4 hrs. Pt is 8 days post cholesytec maria Kevyn Guzman presents for evaluation of post operative bleeding from the umbilical incisio n site of his recent . 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 The bleeding is located in the umbilical area, and is rated as moderate. There is no radi ation. This is made worse by nothing and is relieved by nothing. The patient also complains of the following additional symptoms: bleeding. Care prior to arrival consisted of rest wi th no relief. Primary care provider: EDIN GUTIÉRREZ Past Medical History Diagnosis Date Diabetes mellitus type II Atrial fibrillation Hypertension Hyperlipidemia Anxiety Depression WARD (obstructive sleep apnea) 08/11/2012 Past Surgical History Procedure Date Unlisted procedure arthroscopy Knee surgery Leg surgery LLE Colonoscopy Cholecystectomy, laparoscopic 09/12/2012 Procedure: LAPAROSCOPIC - CHOLECYSTECTOMY; Surgeon: Jevon Vargas DO; Location: [facility] MAIN OR; Service: General; Laterality: N/A; [...] mouth 2 (two) times daily. 12/13/11 Yaakov Bridegs, DO TAMSULOSIN HCL PO Take 0.4 mg by mouth. Historical Provider tiotropium (SPIRIVA) 18 MCG inhalation capsule Inhale 18 mcg into the lungs daily. Histo rical Provider triamterene-hydrochlorothiazide (MAXZIDE) 75-50 MG per tablet Take 1 tablet by mouth daily. Historical Provider No Active Allergies History Social History Marital Status: Single Spouse Name: N/A Number of Children: 1 Years of Education: N/A Occupational History Not on file. Social History Main Topics Smoking status: Never Smoker Smokeless tobacco: Never Used Alcohol Use: Yes occasional Drug Use: No Sexually Active: Not Currently Other Topics Concern Not on file Social History Narrative Lives in assisted, [place], full code Patient is a local resident and lives with family Patient has good social support Family History Problem Relation Age of Onset Heart disease Father Heart disease Sister Diabetes type II Sister Review of Systems Review of Systems Unable to perform ROS: mental acuity Constitutional: Negative for fever and chills. Gastrointestinal: Negative for nausea, vomiting and abdominal pain. Patient has developmental delay or dementia and is not a good historian Physical Exam BP 137/65 | Pulse 76 | Temp 98.6 F (37 C) (Temporal) | Resp 16 | Wt 102.059 kg (225 lb) | SpO2 97% Vital signs are reviewed and are normal Pulse Oximetry Interpretation: Normal on room air General: Alert, in no apparent distress Eyes: Normal inspection, pupils equal and round, non-icteric ENT: Ears normal, no drainage Nose normal and no deformity Pharynx: Mucosa is normal, uvula is midline and no tonsillar enlargement Neck: Normal inspection, supple, no lymphadenopathy, no meningeal signs Heart: Rate and rhythm normal, no murmurs, no S3/4, no extra heart sounds Respiratory: Breath sounds normal bilaterally, normal chest rise and fall, no obvious trau ma Abdomen: Soft and non tender and no mass, no guarding and no rebound Skin: Color normal, no petechia or rash, warm and dry Oozing from the abdominal wall incision at the umbilicus Neuro: No motor deficits, moving all extremities equally, equal cutter machine, no sensory deficit Psych: Appropriate affect, no evidence of hallucinations or delusions Medical Decision Making and Emergency Department Course ED Department Course 05:15. Patient care initiated. Discussed with Dr. Vargas. Will screen with CBC and CMP and INR. His platelets are obvio usly inhibited with the ASA AND Plavix and therefore will place a figure 8 stitch in the wou nd and have patient FU in the clinic within a week 05:55. Hgb dropped but unclear acuity. There is no bleeding now. There is no bruising of the abdomen. No abdominal pain. Will have patient FU with Dr. Vargas for any repeat labs and otherwise return here for any concerns Medications given during this Emergency Department visit: Medications lidocaine-EPINEPHrine 1 %-1:080329 injection 20 mL (20 mL Infiltration Given 09/21/12 0550) Records Reviewed Old medical records. Nursing notes for this Emergency Department visit were reviewed Recent operative notes Patient records reviewed in the [facility] information systems. I carefully reviewed the record s with regard to the past medical/surgical history, medications, and allergies. Consultations and phone calls: Dr. Vargas Laboratory Evaluation: Results Procedure Component Value Ref Range Date/Time CBC w Auto Diff [[id number]] (Abnormal) Collected:09/21/12529 Order Status:Completed Updated:09/21/12552 Specimen Information:Blood WBC 12.8 (H) 3.8 - 11.0 K/uL RBC 2.95 (L) 4.20 - 5.70 M/uL HGB 8.3 (L) 13.2 - 17.0 g/dL HCT 25.3 (L) 39.0 - 50.0 % MCV 85.6 80.0 - 100.0 fl MCH 28.1 27.0 - 34.0 pg MCHC 32.8 32.0 - 35.5 g/dL RDW SD 44.6 37 - 53 fl PLT 322 150 - 400 K/uL MPV 7.3 fl DIFF TYPE AUTOMATED NEUTROPHILS 68.8 40 - 75 % LYMPHOCYTES 18.9 15 - 48 % MONOCYTES 8.7 0 - 12 % EOSINOPHILS 3.3 0 - 7 % BASOPHILS 0.3 0 - 2 % NEUTROPHILS ABS 8.8 (H) 1.9 - 7.4 K/uL LYMPHOCYTES ABS 2.4 1.0 - 3.9 K/uL MONOCYTES ABS 1.1 (H) 0 - 0.8 K/uL EOSINOPHILS ABS 0.4 0 - 0.5 K/uL BASOPHILS ABS 0.0 0 - 0.1 K/uL Complete Metabolic Panel [[id number]] Collected:09/21/12529 Order Status:Sent Updated:09/21/12550 Specimen Information:Blood PT [[id number]] Collected:09/21/12529 Order Status:Sent Updated:09/21/12550 Specimen Information:Blood Interpretation of Laboratory studies: Mild anemia that appears new Radiology and EKG Evaluation Imaging Results None ED Diagnoses Final diagnoses Post-op bleeding Platelet dysfunction due to drugs Anemia Disposition: ED Disposition Orders Discharge Condition at discharge: Stable Follow-up Information Follow up With Details Comments Contact Info Jevon Vargas DO In [address] [place] [address] [phone] Discharge Medications: New Prescriptions No new medications Additional Documentation Procedures Kevyn Don MD 09/21/12 0559 documented in this encounter Plan of Treatment [...] | | | | | | [place] [address] | | | | | | [phone] | | | | | | | | +--------+ + + + + documented as of this encounter Visit Diagnoses + + | Diagnosis | + + | Post-op bleeding Hemorrhage complicating a procedure | + + | 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
--- OUTSIDE RECORDS SUMMARY | ~2019-10-12 | XMS | Encounter Summary ---
Demographics + + + | Address | [address] | | | [place] [address] | + + + | Home Phone | | + + + | Preferred Language | Unknown | + + + | Marital Status | | + + + | Shinto Affiliation | 1027 | + + + | Race | White | + + + | Ethnic Group | Not or | + + + Author + + + | Author | [facility] | | | and [place] | + + + | Organization | [facility] | | | and [place] | + + + | Address | Unknown | + + + | Phone | Unavailable | + + + Support + + + + + | Name | Relationship | Address | Phone | + + + + + | Sammi Kohler | ECON | [place] [address] | | + + + + + Care Team Providers + +------+ + | Care Marine Equipment Test Engineer Name | Role | Phone | + +------+ + PCP | Unavailable | + +------+ + Encounter Details +--------+ + + + + | Date | Type | Department | Care Team | Description | +--------+ + + + + | 12/07/ | Emergency | [facility] | Kristian Mae | Chest pain; | | 2012 | [facility] | MD [address] | Dyspepsia; | | | | EMERGENCY CENTER | [facility] [address], | Hypertension; | | | | [address] | [place] [address] | Dizziness | | | | [place], [place] | [phone] | | | | | [address] | | | | | | [phone] | | | +--------+ + + + [...] as of this encounter ED Notes Kenrick Transaction, Provider Unknown - 12/07/2012 7:59 PM PDTFormatting of this note m ight be different from the original. ED Notes by Ivonne Hernandez RN at 12/07/121958 Author: Ivonne Hernandez RN Service: (none) Author Type: Registered Nurse Filed: 12/07/121958 Date of Service: 12/07/121958 Status: Signed Track Coach: Ivonne Hernandez RN (Registered Nurse) Pt to CT. Ivonne Hernandez RN 12/07/121958 onver ivaan Transaction, Provider Unknown - 12/07/2012 5:28 PM PDT ED Notes by Jv Liriano RN at 12/07/121727 Author: Jv Liriano RN Service: (none) Author Type: Registered Nurse Filed: 12/07/121727 Date of Service: 12/07/121727 Status: Signed Track Coach: Jv Liriano RN (Registered Nurse) Pt complains of a headache at this time Jv Liriano RN 12/07/121727 ristian Mae MD - 12/07/2012 5:10 PM PDT ED Provider Notes by Kristian Mae MD at 12/07/121709 Author: Kristian Mae MD Service: (none) Author Type: Physician Filed: 12/08/12 1606 Date of Service: 12/07/121709 Status: Signed Track Coach: Kristian Mae MD (Physician) [facility] Department of Emergency Medicine History of Present Illness Patient Identification Kevyn Guzman is a 56 y.o. male. Patient information was obtained from patient. History/Exam limitations: none. Patient presented to the Emergency Department by: Ambulance Chief Complaint Chief Complaint Patient presents with Dizziness The patient presents to the ED via ambulance with complaints of dizziness/lightheadedness a long with epigastric burning and indigestion. Onset of symptoms was today around 3:30 PM, wi th a constant course since that time. Pt states he ate dinner and went to watch T.V. When hi s symptoms began. The symptoms are described to be of moderate severity. The patient also co mplains of CP/epigastric burning, "being warm", and nausea. Pt reports he lives in a half [place] house, assumedly because of cognitive problems and inability to live independently. Past Medical History Diagnosis Date Diabetes mellitus type II Atrial fibrillation Hypertension Hyperlipidemia Anxiety Depression WARD (obstructive sleep apnea) 08/11/2012 Basal cell carcinoma 09/26/2012 Unspecified visual disturbance Past Surgical History Procedure Date Unlisted procedure arthroscopy Knee surgery Leg surgery LLE Colonoscopy Cholecystectomy, laparoscopic 09/12/2012 Procedure: LAPAROSCOPIC - CHOLECYSTECTOMY; Surgeon: Jevon Vargas DO; Location: [facility] MAIN OR; Service: General; Laterality: N/A; Abdominal surgery Cholecystectomy Skin cancer excision 10/10/2012 Procedure: EXCISION - SKIN CANCER; Surgeon: Sy Fierro MD; Location: [facility] MAIN OR ; Service: Plastics; [...] hours as needed for Pain. 10/10/12 10/10/13 yS Fierro MD ipratropium-albuterol (COMBIVENT) 18-103 MCG/ACT inhaler [...] 2 (two) times daily. 12/13/11 Yaakov Bridges, tiotropium (SPIRIVA) 18 MCG inhalation capsule Inhale [...] lymph nodes, easy bruising Physical Exam BP 228/102 | Pulse 85 | Temp 97.4 F (36.3 C) (Oral) | Resp 22 | Ht 1.803 m (5' 11") | W t 110.224 kg (243 lb) | BMI 33.89 kg/m2 | SpO2 99% Pulse Oximetry interpretation: Normal General: Awake, alert, well oriented, in no apparent distress, cognition slow but is baseli ne for him, morbidly obese Head: Atraumatic Eyes: Normal inspection, pupils equal and round, EOMI ENT: Ears normal Nose normal Pharynx normal Oropharyngeal mucosa nl Neck: Normal inspection Supple No lymphadenopathy No JVD No stridor Voice nl Good range of motion without pain Cardiovascular: Rate and rhythm normal No murmurs, rubs or gallops Respiratory: Breath sounds normal bilaterally, nl excursion, chest non tender Abdomen: Soft, non-tender, non-distended No guarding or rebound No organomegaly Nl active bowel sounds, no masses Back: Normal inspection, non tender, moves without difficulty Skin: Color normal Warm and dry No rash Extremities: No peripheral edema, good cap refill, pt can BARNARD without difficulty Neuro: No motor deficit No sensory deficit BARNARD A&O X3 Medical Decision Making and Emergency Department Course ED Department Course Pt presents with some dizziness and accelerated hypertension, but his primary complaint is epigastric burning after eating and a feeling of indigestion. On exam pt is morbidly obese, has slow cognition but is baseline for him, otherwise normal. Will order labs, CXR, EKG, and reassess. 8:47 PM Pt recheck. Pt is pain free. Advised pt to continue on his regular medication. I have instr ucted the pt to follow up with his PCP for recheck. We have discussed signs and symptoms th at would necessitate an immediate return visit to the ED. Pt verbalized their understanding of the discharge instructions. All questions and concerns addressed. Records Reviewed Old medical records. Nursing notes. Laboratory Evaluation Results Procedure Component Value Ref Range Date/Time Brain natriuretic peptide [[id number]] Collected:12/07/121723 Order Status:Completed Updated:12/07/12 1802 BRAIN NATRIURETIC PEPTIDE 10.9 0 - 100 pg/mL [facility] [place] ([facility] Only) [[id number]] (Abnormal) Collected:12/07/121723 Order Status:Completed Updated:12/07/12 1757 WBC 10.6 3.8 - 11.0 K/uL RBC 5.10 4.20 - 5.70 M/uL HGB 13.1 (L) 13.2 - 17.0 g/dL HCT 40.3 39.0 - 50.0 % MCV 79.1 (L) 80.0 - 100.0 fl MCH 25.7 (L) 27.0 - 34.0 pg MCHC 32.4 32.0 - 35.5 g/dL RDW SD 47.7 37 - 53 fl PLT 269 150 - 400 K/uL MPV 7.6 fl DIFF TYPE AUTOMATED NEUTROPHILS 59.4 % LYMPHOCYTES 26.3 % MONOCYTES 9.9 % EOSINOPHILS 3.3 % BASOPHILS 1.1 % NEUTROPHILS ABS 6.3 1.9 - 7.4 K/uL LYMPHOCYTES ABS 2.8 1.0 - 3.9 K/uL MONOCYTES ABS 1.0 (H) 0 - 0.8 K/uL EOSINOPHILS ABS 0.4 0 - 0.5 K/uL BASOPHILS ABS 0.1 0 - 0.1 K/uL SODIUM 139 135 - 143 mmol/L POTASSIUM 3.4 (L) 3.5 - 4.9 mmol/L CHLORIDE 102 99 - 109 mmol/L CO2 28 23 - 32 mmol/L ANION GAP AGAP 12 5 - 20 mmol/L GLUCOSE 241 (H) 65 - 99 mg/dL BUN 15 8 - 25 mg/dL CREATININE 1.21 0.70 - 1.30 mg/dL BUN/CREAT 12 CALCIUM 9.0 8.5 - 10.2 mg/dL TOTAL PROTEIN 7.8 6.3 - 8.2 g/dL Albumin 3.5 (L) 3.6 - 5.0 g/dL GLOBULIN 4.3 1.3 - 4.9 g/dL A/G 0.8 (L) 1.0 - 2.4 TBIL 0.3 0.1 - 1.5 mg/dL ALK PHOS 112 35 - 115 U/L AST 22 10 - 45 U/L ALT 23 10 - 65 U/L EGFR >60 >60 mL/min/1.73m2 CPK 177 55 - 400 U/L TROPONIN I <0.020 0.00 - 0.10 ng/mL INR 1.1 APTT 33 24 - 40 seconds MMB 2.3 0.5 - 3.6 ng/mL CK-MB Index 1.3 Lipase [[id number]] Collected:12/07/121723 Order Status:Completed Updated:12/07/12 175 LIPASE 121 73 - 393 U/L POC cardiac troponin [[id number]] Collected:12/07/121734 Order Status:Completed Updated:12/07/121747 POC CARDIAC TROPONIN 0.01 0.00 - 0.10 ng/mL Radiology and EKG Evaluation EK Normal Sinus Rhythm. Rate: 81 Intervals unremarkable Non specific T wave flattening No acute ischemia. EKG from 09/14/2012 unchanged Kristian Mae MD Imaging Results XR Chest PA and Lateral (Final result) Result time:12/07/121838 Final result by Rad Results In Richard (12/07/12 18:39:22) Impression: No evidence of acute disease or active process. Patient's symptoms not explained by this t echnique. Narrative: History: 56 year-old male with shortness of breath. Technique: AP upright and lateral radiographic examination of the chest. 11 August 2012 prior study for comparison. Findings: Cardiomediastinum is normal. Lungs are symmetrically inflated without pneumothorax, infiltrate, or effusion. Somewhat un derpenetrated, body habitus is limiting. Bones and soft tissues are normal for age. ED Diagnoses Final diagnoses Chest pain secondary to acid reflux Dyspepsia Hypertension Dizziness Disposition: ED Disposition Orders Discharge Condition at discharge: Stable Follow-up Information Follow up With Details Comments Contact Info Jerrell Diego, DO In 2 days As needed [address] [facility] [address] [facility] Emergency Department If symptoms worsen [address] [facility] [address] Additional Documentation Procedures Attending Note: Documentation assistance provided by Shannen Franklin (Scribe). Information recorded by the scribe has been reviewed and validated by me. Troy laughlin with its contents. MD Kristian Silverman MD 12/08/12 1606 onversion Merchant saction, Provider Unknown - 12/07/2012 5:09 PM PDTFormatting of this note might be differen t from the original. ED Notes by Jv Liriano RN at 12/07/121708 Author: Jv Liriano RN Service: (none) Author Type: Registered Nurse Filed: 12/07/121708 Date of Service: 12/07/121708 Status: Signed Track Coach: Jv Liriano RN (Registered Nurse) Complains of lower back pain Jv Liriano RN 12/07/121708 onver ivana Transaction, Provider Unknown - 12/07/2012 5:08 PM PDT ED Notes by Jv Liriano RN at 12/07/121707 Author: Jv Liriano RN Service: (none) Author Type: Registered Nurse Filed: 12/07/121707 Date of Service: 12/07/121707 Status: Signed Track Coach: Jv Liriano RN (Registered Nurse) Pt states he has had mid chest pain today since about 3 this afternoon, complains of nausea , sweats, light headed, feeling of being hot. Jv Liriano RN 12/07/121707 onver ivana Transaction, Provider Unknown - 12/07/2012 5:01 PM PDT ED Notes by Michelle Palomares RN at 12/07/121700 Author: Michelle Palomares RN Service: (none) Author Type: Registered Nurse Filed: 12/07/121700 Date of Service: 12/07/121700 Status: Signed Track Coach: Michelle Palomares RN (Registered Nurse) Pt now c/o chest pain. notified Michelle Palomares RN 12/07/121700 docume nted in this encounter Plan of Treatment +--------+ + + + + | Date | Type | Specialty | Care Team | Description | +--------+ + + + + | 10/16/ | Anti-coag | Anticoagulation | Brittany Zaragoza | | | 2020 | visit | | [address] | | | | | | [place], | | | | | | [place] [address] | | | | | | [phone] | | | | | | | | +--------+ + + + + documented as of this encounter Procedures + +--------+ + + + | Procedure Name | Priori | Date/Time | Associated Diagnosis | Comments | | | ty | | | | + +--------+ + + + | XR CHEST 2 VIEWS | Routin | 12/07/2012 | | Results for this | | | e | 6:20 PM | | procedure are in the | | | | PDT | | results section. | + +--------+ + + + | ECG 12 LEAD | Routin | 12/07/2012 | | Results for this | | | e | 5:05 PM | | procedure are in the | | | | PDT | | results section. | + +--------+ + + + documented in this encounter Results XR Chest 2 Vws (12/07/2012 6:20 PM PDT) + + | Specimen | + + | | + + + + + | Impressions | Performed At | + + + | No evidence of acute disease or active process. Patient's symptoms | | | not explained by this technique. | | + + + + + + | Narrative | Performed At | + + + | History: 56 year-old male with shortness of breath. Technique: | | | AP upright and lateral radiographic examination of the chest. 11 August | | | 2012 prior study for comparison. Findings: Cardiomediastinum is | | | normal. Lungs are symmetrically inflated without pneumothorax, | | | infiltrate, or effusion. Somewhat underpenetrated, body habitus is | | | limiting. Bones and soft tissues are normal for age. | | + + + + ---------+ | Procedure Note | + ---------+ | Richard, Rad Conversion - 09/28/2018 3:24 PM PDT History: 56 year-old male with | | shortness of breath. Technique: AP upright and lateral radiographic examination of the | | chest. 11 August 2012 prior study for comparison. Findings: Cardiomediastinum is normal. | | Lungs are symmetrically inflated without pneumothorax, infiltrate, or effusion. Somewhat | | underpenetrated, body habitus is limiting. Bones and soft tissues are normal for age. | | IMPRESSION: No evidence of acute disease or active process. Patient's symptoms not | | explained by this technique. | | 6:39 PM | |Bones and soft tissues are normal for age. | | | |IMPRESSION: | |No evidence of acute disease or active process. Patient's symptoms not explained by this te chnique. | | | | | + ---------+ ECG 12 lead (12/07/2012 5:05 PM PDT) + + + + + [...] of | | | | | | 12-SEP-2012 21:31,No | | | | | | significant [...] | | | | | | editor map ZAYNAB HUNT | | | | | | (4) on 12/08/2012 6:42:53 | | | | | | AM | | | | + + + + + + + + | Specimen | + + | | + + + + + | Narrative | Performed At | + + + | Historically converted procedure from [facility] Epic environment | EXTERNAL LAB | [...] Chest pain, unspecified | + + | Dyspepsia Dyspepsia and other specified disorders of function of stomach | + + | Hypertension Unspecified essential hypertension | + + | Dizziness Dizziness and giddiness | + + documented in this encounter
--- OUTSIDE RECORDS SUMMARY | ~2019-10-12 | XMS | Encounter Summary ---
Demographics + + + | Address | [address] | | | [place] [address] | + + + | Home Phone [...] Sammi Kohler | ECON | [place] [address] | | + + + + + Care Team Providers + +------+ + | Care Manager Implementation Name | Role | Phone | + +------+ + PCP | Unavailable | + +------+ + Encounter Details +--------+ + + + + | Date | Type | Department | Care Team | Description | +--------+ + + + + | 01/16/ | Emergency | [facility] | Martell Gold | History of | | 2018 | | [facility] | MD [address] | palpitations; | | | | EM[facility]Y [facility]ENTER | MASSIMO GARRICK | Chronic atrial | | | | [address] | [place] [address] | fibrillation (HCC); | | | | [place], [place] | [phone] | Hyperglycemia; | | | | [address] | | Atypical chest pain | | | | [phone] | | | +--------+ + + + [...] Soni MS, MSW Service: (none) Author Type: Roof Painter Filed: 01/16/182043 Date of Service: 12/11/18 2043 Status: Signed Infrastructure Director: González Soni MS, RISK CONTROL PRODUCT LIABILITY DIRECTOR (Roof Painter) Referral from nursing for transportation needs. Pt needing ride, no one is available to pic k up patient. Unable to verify if pt has medicaid transport benefit, none listed on face she et. [employer] [facility] called for ED waiting lobby. Arrive in 30 minutes. [facility] billed. docume nted in this encounter ED Notes Martell Gold MD - 01/16/2018 6:25 PM PST ED Provider Notes by Martell Gold MD at 01/16/181824 Author: Martell Gold MD Service: Emergency Department Author Type: Physician Filed: 01/17/181825 Date of Service: 01/16/181824 Status: Signed Infrastructure Director: Martell Gold MD (Physician) [facility] Emergency Department Provider Note Name: Kevyn [...] a visit As needed, to follow up [facility] Emergency Department Emergency Medicine Go to If symptoms worsen [address] [place] [id number] Extended ED Note Patient information was obtained from patient. History/Exam limitations: none. Patient presented to the Emergency Department by: Vera Palmer [id number] CC: Chief Complaint Patient presents [...] Component Value Ref Range Date/Time Cardiac Panel [[id number]] (Abnormal) Collected: 01/16/181813 Order Status: Completed Updated: [...] ng/mL CK-MB Index 2.1 Troponin I, Lab [[id number]] Collected: 01/16/181813 Order Status: Completed Specimen: Blood [...] rhythm with marked sinus arrhythmia. Ectopy: none. Hankins: normal Intervals: HI .15 QRs .86 QTSC .460 Infarct/Ischemia: consider inferior ischemia ED COURSE Consultations and Phone calls I had a bedside discussion with the patient and other members present at bedside. Pertinen t positive and negative findings have been discussed. Patients vital signs have been reviewed prior to discharge Vitals: 01/16/18 1824 01/16/18 1853 01/16/18 1953 01/16/18 2047 BP: 174/85 170/79 172/81 173/84 BP Location: [...] CHOLECYSTECTOMY; Surgeon: Jevon Vargas DO; Location: [facility] MAIN OR; Service: General; Laterality: N/A; COLONOSCOPY COLONOSCOPY N/A 03/04/2013 Procedure: COLONOSCOPY; Surgeon: Howie Gibson MD; Location: [facility] ENDOSCOPY; Service: Gastroen terology; Laterality: N/A; ESOPHAGOGASTRODUODENOSCOPY N/A 03/03/2013 Procedure: ESOPHAGOGASTRODUODENOSCOPY; Surgeon: Howie Gibson MD; Location: [facility] ENDOSCOPY; Se rvice: Gastroenterology; Laterality: N/A; HERNIA REPAIR N/A 07/03/2013 Procedure: LAPAROSCOPIC - HERNIA - INCISIONAL; Surgeon: Jevon Vargas DO; Location: [facility] MAIN OR; Service: General; Laterality: N/A; KNEE SURGERY rt knee, patella LEG SURGERY LLE SKIN BIOPSY SKIN CANCER EXCISION Left 10/10/2012 Procedure: EXCISION - SKIN CANCER; Surgeon: Sy Fierro MD; Location: [facility] MAIN OR; Service: Plastics; Laterality: Left; upper arm and upper back w/frozen section SKIN LESION EXCISION Left 05/05/2014 Procedure: EXCISION - LESION - FROZEN SECTION; Surgeon: Sy Fierro MD; Location: [facility] MAIN OR; Service: Plastics; Laterality: [...] lungs as needed. 108 mcg/act Historical Provider Mfewj-W-Jqjajdhkfspxx (BEANO) TABS Take 150 Units by mouth [...] the skin nightly. 10/18/17 Bruno devine MD ogozqgwth-kbpprxgb-wyabmuxra hydroxide-simethicone Take 40 mLs by mouth daily [...] CONTENTS OF 1 CAPSULE DAILY 8 Mik iDego DO spironolactone-hydrochlorothiazide (ALDACTAZIDE) 25-25 MG per tablet [...] recognition software and therefore may contain minor cigar inspector errors. The possibility of "sound alike" cigar inspector errors, and additions or deletions may occur . If there is any question, with respect to clarity of the message being conveyed, please c ontact me directly for clarification. Martell Gold MD, FACEP Diplomate [place] [employer] Procedures Additional Documentation [...] 01/16/181753 Date of Service: 01/16/181753 Status: Signed Infrastructure Director: Ivonne Hernandez RN (Registered Nurse) Bed: 08 [...] | | | | | [address] [place], | | | | | | [place] [address] | | | | | | [phone] | | | | | | | [...] | | Fingerstick | performed at [facility];[address] | | LAB | | | | [address];[place] | | | | | | [id number] | | | | + + + [...] Ramos Conversion - 09/19/2018 1:06 AM PDT History:62 [...] | | | | | | ACUTE MS Testing | | | | | | performed at [facility] | | | | | | [address] [facility];[place], [place] | | | | | | [phone] | | | | + + + [...] (500), | | | | | | art editor Hortensia Carrillo | | | | | | (144) on 01/16/2018 | | | | | | 7:45:11 PM | | | | + + + + + + + + | Specimen | + + | | + + + + + | Narrative | Performed At | + + + | Historically converted procedure from [facility] environment | EXTERNAL LAB | + [...]
--- OUTSIDE RECORDS SUMMARY | ~2019-10-12 | XMS | Encounter Summary ---
Demographics + + + | Address | [address] | | | [place] [address] | + + + | Home Phone | | + + + | Preferred Language | Unknown | + + + | Marital Status | | + + + | Scientologist Affiliation | [id number] | + + + | Race | White | + + + | Ethnic Group | Not or | + + + Author + + + | Author | [facility] | | | and [place] | + + + | Organization | [facility] | | | and [place] | + + + | Address | Unknown | + + + | Phone | Unavailable | + + + Support + + + + + | Name | Relationship | Address | Phone | + + + + + | Sammi Kohler | ECON | [place] [address] | | + + + + + Care Team Providers + +------+ + | Care Senior Sales Operations Manager Name | Role | Phone | + +------+ + PCP | Unavailable | + +------+ + Encounter Details +--------+ + + + + | Date | Type | Department | Care Team | Description | +--------+ + + + + | 01/25/ | Emergency | [facility] | Irvin Little | Hyperglycemia; | | 2014 | | [facility] | DO [address] | Dizziness | | | | EMERGENCY [facility]ENTER | [address] | | | | | [address] | [place], [place] | | | | | [place], [place] | [address] | | | | | [address] | [phone] | | | | | [phone] | | | +--------+ + + + [...] ED Notes Conversion Transaction, Provider Unknown - 01/25/2015 5:11 PM PSTFormatting of this note m ight be different from the original. ED Notes by Carlos Morfin RN at 01/25/151710 Author: Carlos Morfin RN Service: (none) Author Type: Registered Nurse Filed: 01/25/151710 Date of Service: 01/25/151710 Status: Signed Chemical Maker: Carlos Morfin RN (Registered Nurse) 2 patient identifiers checked, patient gowned, side rails up x1 . ID band placed on patien t, call light instructed on and given to patient. Carlos Morfin RN 01/25/151710 Danny Rodríguezaction, Provider Unknown - 01/25/2015 5:08 PM PST ED Notes by Carlos Morfin RN at 01/25/151707 Author: Carlos Morfin RN Service: (none) Author Type: Registered Nurse Filed: 01/25/151709 Date of Service: 01/25/151707 Status: Signed Chemical Maker: Carlos Morfin RN (Registered Nurse) Pt complains of having a increased blood sugar, Pt was in the here in the ER with his frien d earlier in the day. Pt is AAOx4, gait steady and full weight bearing. Carlos Morfin RN 01/25/151709 Irvin Cha DO - 01/25/2015 4:59 PM PST ED Provider Notes by Irvin Little DO at 01/25/151658 Author: Irvin Little DO Service: Emergency Department Author Type: Physician Filed: 01/25/151839 Date of Service: 01/25/151658 Status: Signed Chemical Maker: Irvin Little DO (Physician) Procedures Additional Documentation Procedures [facility] Department of Emergency Medicine 6:39 PM History of Present Illness Patient Identification Kevyn Guzman is a 59 y.o. male. Patient information was obtained from patient. History/Exam limitations: none. 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 The patient has over 37 visits in the p ast 12 months to local emergency departments. Prior to checking into the emergency departmen t the patient took his blood sugar and was elevated into the 300s, the patient administered 5 units of his short-acting insulin. The patient still continues to feel shaky and having wo rsening of his chronic dizziness. The patient is a poor historian and has difficulty articul ating the dizziness, he does feel that its slightly worse than his baseline. The patient den ies fevers, cough, chest pain, dyspnea on exertion or abdominal pain Past Medical History Diagnosis Date Diabetes mellitus [...] pain Stroke (HCC) TIA (transient ischemic attack) snf (current) use of 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 Past Surgical History Procedure Laterality Date Unlisted procedure arthroscopy Knee surgery rt knee, patella Leg surgery LLE Colonoscopy Cholecystectomy, laparoscopic 09/12/2012 Procedure: LAPAROSCOPIC - CHOLECYSTECTOMY; Surgeon: Jevon Vargas DO; Location: [facility] MAIN OR; Service: General; Laterality: N/A; Abdominal surgery Cholecystectomy Skin cancer excision 10/10/2012 Procedure: EXCISION - SKIN CANCER; Surgeon: Sy Fierro MD; Location: [facility] ; Service: Plastics; Laterality: Left; upper arm and upper back w/frozen section Esophagogastroduodenoscopy 03/03/2013 Procedure: ESOPHAGOGASTRODUODENOSCOPY; Surgeon: Howie Gibson MD; Location: [facility] ENDOSCOPY; S ervice: Gastroenterology; Laterality: N/A; Colonoscopy 03/04/2013 Procedure: COLONOSCOPY; Surgeon: Howie Gibson MD; Location: [facility] ENDOSCOPY; Service: Gastroe nterology; Laterality: N/A; Upper gastrointestinal endoscopy Skin biopsy Hernia repair 07/03/2013 Procedure: LAPAROSCOPIC - HERNIA - INCISIONAL; Surgeon: Jevon Vargas DO; Location: [facility]; Service: General; Laterality: N/A; Skin lesion excision Left 05/05/2014 Procedure: EXCISION - LESION - FROZEN SECTION; Surgeon: Sy Fierro MD; Location: [facility]; Service: Plastics; Laterality: Left; forearm Prior to Admission medications Medication Sig Start Date End Date Taking? Authorizing Provider Albuterol Sulfate (VENTOLIN HFA IN) Inhale 2 puffs into the lungs as needed. 108 mcg/act Historical Provider Vlvgp-F-Wmchrgdsbuynx (BEANO) TABS Take 150 Units by mouth [...] 100 mg by mouth nightly. Historical Provider bheceyhhy-vevfoyvq-qytcmxymy hydroxide-simethicone Take 40 mLs by mouth daily [...] hours as needed for Nausea. Historical Provider ondansetron (ZOFRAN-ODT) 8 MG disintegrating tablet Take 1 tablet by mouth every 8 (eight) hours as needed for Nausea (or vomiting). 01/19/15 01/26/15 Ashu Bobo MD paroxetine (PAXIL) 40 MG tablet Take [...] Lives alone x 1 wk, moved from [facility], , 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 2 falls in the last 6 months. Family History Problem Relation Age of Onset Heart disease Father Heart disease Sister Diabetes type II Sister Heart Problems Brother Review of Systems Review of Systems Respiratory: Negative for shortness of breath. Cardiovascular: Negative for chest pain. Gastrointestinal: Negative for abdominal pain. Musculoskeletal: Negative for neck pain. Neurological: Positive for dizziness. Negative for weakness. Psychiatric/Behavioral: Negative for depression. All other systems reviewed and are negative. Physical Exam BP 152/83 mmHg | Pulse 81 | Temp(Src) 97.3 F (36.3 C) (Temporal) | Resp 18 | Wt 100.8 k g (222 lb 3.6 oz) | SpO2 100% Vital signs interpretation: WNL Pulse Oximetry interpretation: Normal Physical Exam Constitutional: He is oriented to person, place, and time. He appears well-developed and we ll-nourished. No distress. HENT: Head: Normocephalic and atraumatic. Right Ear: External ear normal. Left Ear: External ear normal. Mouth/Throat: No oropharyngeal exudate. Eyes: Conjunctivae and EOM are normal. Pupils are equal, round, and reactive to light. Righ t eye exhibits no discharge. Left eye exhibits no discharge. Neck: Normal range of motion. No tracheal deviation present. Cardiovascular: Normal rate, regular rhythm and intact distal pulses. Pulmonary/Chest: Effort normal. No respiratory distress. He has no wheezes. Abdominal: Soft. There is no tenderness. Musculoskeletal: Normal range of motion. He exhibits no tenderness. Neurological: He is alert and oriented to person, place, and time. He exhibits normal muscl e tone. Skin: He is not diaphoretic. Psychiatric: He has a normal mood and affect. His behavior is normal. Medical Decision Making and Emergency Department Course Laboratory Evaluation Results Procedure Component Value Ref Range Date/Time Comprehensive metabolic panel [[id number]] (Abnormal) Collected: 01/25/15 1730 Order Status: Completed Specimen Information: Blood Updated: 01/25/154 SODIUM 137 135 - 143 mmol/L POTASSIUM 3.8 3.5 - 4.9 mmol/L CHLORIDE 101 99 - 109 mmol/L CO2 26 23 - 32 mmol/L ANION GAP AGAP 13 5 - 20 mmol/L GLUCOSE 262 (H) 65 - 99 mg/dL BUN 24 8 - 25 mg/dL CREATININE 1.2 0.70 - 1.30 mg/dL BUN/CREAT 20 CALCIUM 8.6 8.5 - 10.5 mg/dL TOTAL PROTEIN 7.7 6.3 - 8.2 g/dL Albumin 3.2 (L) 3.3 - 4.8 g/dL GLOBULIN 4.4 1.3 - 4.9 g/dL A/G 0.7 (L) 1.0 - 2.4 TBIL 0.4 0.1 - 1.5 mg/dL ALK PHOS 163 (H) 35 - 115 U/L AST 16 10 - 45 U/L ALT 23 10 - 65 U/L EGFR >60 >60 mL/min/1.73m2 Magnesium [[id number]] Collected: 01/25/151729 Order Status: Completed Specimen Information: Blood Updated: 01/25/15 1814 MAGNESIUM 1.9 1.7 - 2.4 mg/dL CBC with differential [[id number]] (Abnormal) Collected: 01/25/151729 Order Status: Completed Specimen Information: Blood Updated: 01/25/151811 WBC 11.35 (H) 3.80 - 11.00 K/uL RBC 5.79 (H) 4.20 - 5.70 M/uL HGB 13.5 13.2 - 17.0 g/dL HCT 42.8 39.0 - 50.0 % MCV 73.9 (L) 80.0 - 100.0 fl MCH 23.3 (L) 27.0 - 34.0 pg MCHC 31.6 (L) 32.0 - 35.5 g/dL RDW SD 42.4 37 - 53 fl PLT 329 150 - 400 K/uL MPV 7.6 fl DIFF TYPE AUTOMATED NEUTROPHILS 75.37 % LYMPHOCYTES 16.49 % MONOCYTES 6.71 % EOSINOPHILS 0.67 % BASOPHILS 0.76 % NEUTROPHILS ABS 8.56 (H) 1.90 - 7.40 K/uL LYMPHOCYTES ABS 1.87 1.00 - 3.90 K/uL MONOCYTES ABS 0.76 0.00 - 0.80 K/uL EOSINOPHILS ABS 0.08 0.00 - 0.50 K/uL BASOPHILS ABS 0.09 0.00 - 0.10 K/uL MORPHOLOGY 1+ aPTT [[id number]] Collected: 01/25/151729 Order Status: Completed Specimen Information: Blood Updated: 01/25/15 1801 APTT 27 23 - 32 seconds Protime [[id number]] Collected: 01/25/151729 Order Status: Completed Specimen Information: Blood Updated: 01/25/15 1800 INR 1.2 Ketones, Serum [[id number]] Collected: 01/25/151729 Order Status: Completed Specimen Information: Blood Updated: 01/25/15 1755 KETONES,SERUM NEGATIVE NEGATIVE POC venous blood gas [[id number]] (Abnormal) Collected: 01/25/151737 Order Status: Completed Updated: 01/25/151744 POC CORD TORI PH 7.469 (H) 7.310 - 7.410 POC CORD TORI PCO2 42 41 - 51 mmHG POC CORD TORI PO2 35 30 - 40 mmHG POC VENOUS HCO3 30 (H) 23 - 28 mmol/L POC TCO2 31 (H) 24 - 29 mEq/L POC BASE EXCESS 7 (H) 0 - 3 mEq/L POC VENOUS SO2 71.0 60 - 85 % POC FIO2 21 % I personally reviewed the lab results and they have been posted to the chart. Pertinent po sitive and negative findings have been addressed appropriately. ED Diagnoses Final diagnoses Hyperglycemia Dizziness ED Department Course No acute changes in the patient's baseline status, the patient is safe for discharge home a nd outpatient management. They will return to the emergency department for any worsening in his condition Disposition: ED Disposition Discharge Condition at discharge: Good Follow-up Information Follow up With Details Comments Contact Info Jerrell Diego DO In [address] [facility] [id number] Discharge Medications: New Prescriptions No new medications Dr. Irvin Little, D.O. Dictation software, [employer], used which may contain error for similar sounding words even af ter review. Personal communication requested for any clarification. Irvin Little DO 01/25/15 7860 documente d in this encounter Plan of Treatment +--------+ + + + + | Date | Type | Specialty | Care Team | Description | +--------+ + + + + | 10/16/ | Anti-coag | Anticoagulation | LeeladanielNohemih | | | 2019 | visit | | [address] | | | | | | [place], | | | | | | [place] [address] | | | | | | [phone] | | | | | | | | +--------+ + + + + documented as of this encounter Procedures + +--------+ + + + | Procedure Name | Priori | Date/Time | Associated Diagnosis | Comments | | | ty | | | | + +--------+ + + + | EXTERNAL LAB: CBC | Routin | 01/25/2015 | | Results for this | | | e | 5:30 PM | | procedure are in the | | | | PST | | results section. | + +--------+ + + + | PTT | Routin | 01/25/2015 | | Results for this | | | e | 5:30 PM | | procedure are in the | | | | PST | | results section. | + +--------+ + + + | PROTIME INR | Routin | 01/25/2015 | | Results for this | | | e | 5:30 PM | | procedure are in the | | | | PST | | results section. | + +--------+ + + + | MAGNESIUM | Routin | 01/25/2015 | | Results for this | | | e | 5:30 PM | | procedure are in the | | | | PST | | results section. | + +--------+ + + + | KETONES, BLOOD | Routin | 01/25/2015 | | Results for this | | | e | 5:30 PM | | procedure are in the | | | | PST | | results section. | + +--------+ + + + | COMPREHENSIVE | Routin | 01/25/2015 | | Results for this | | METABOLIC PANEL | e | 5:30 PM | | procedure are in the | | | | PST | | results section. | + +--------+ + + + | POC GLUCOSE | Routin | 01/25/2015 | | Results for this | | | e | 5:07 PM | | procedure are in the | | | | PST | | results section. | + +--------+ + + + documented in this encounter Results Ketones, blood (01/25/2015 5:30 PM PST) + + + + + + | Component | Value | Ref Range | Performed | Pathologist | | | | | At | Signature | + + + + + + | Ketones, | NEGATIVEComment: Testing | | EXTERNAL | | | Blood | performed at [facility] | | LAB | | | | [address];[place], [place] | | | | | | [address] | | | | + + + + + + + + | Specimen | + + | Blood specimen | | (specimen) | + + + +---------+ + + | Performing | Address | City/State/Zipcode | Phone Number | | Organization | | | | + +---------+ + + | EXTERNAL LAB | | | | + +---------+ + + PTT (01/25/2015 5:30 PM PST) + + + + + + | Component | Value | Ref Range | Performed | Pathologist | | | | | At | Signature | + + + + + + | aPTT, | 27Comment: Testing | 23 - 32 seconds | EXTERNAL | | | Patient | performed at [facility] | | LAB | | | | [address];[place] | | | | | | [address] | | | | + + + + + + + + | Specimen | + + | Blood specimen | | (specimen) | + + + +---------+ + + | Performing | Address | City/State/Zipcode | Phone Number | | Organization | | | | + +---------+ + + | EXTERNAL LAB | | | | + +---------+ + + Protime INR (01/25/2015 5:30 PM PST) + + + + + + | Component | Value | Ref Range | Performed | Pathologist | | | | | At | Signature | + + + + + + | INR | 1.2Comment: REFERENCE | | [...] | | | performed at [facility] | | | | | | [address];[place], [place] | | | | | | [address] | | | | + + + [...] + +---------+ + + External Lab: CBC (01/25/2015 5:30 PM PST) + + + + + + | Component | Value | Ref Range | Performed | Pathologist | | | | | At | Signature | + + + + + + | WBC | 11.35 (H)Comment: | 3.80 - 11.00 | EXTERNAL | | | | Testing performed at | K/uL | LAB | | | | [facility];[place] [address] | | | | + + + + + + | Non- | 5.79 (H)Comment: Testing | 4.20 - 5.70 | EXTERNAL | | | Red Blood | performed at [facility] | M/uL | LAB | | | Cells | [address];[place] | | | | | Counted | [address] | | | | + + + + + + | Hemoglobin | 13.5Comment: Testing | 13.2 - 17.0 | EXTERNAL | | | | performed at [facility];[address] | g/dL | LAB | | | | [address];[place] | | | | | | [address] | | | | + + + + + + | Hematocrit, | 42.8Comment: Testing | 39.0 - 50.0 % | EXTERNAL | | | POC | performed at [facility] | | LAB | | | | [address];[place] | | | | | | [address] | | | | + + + + + + | MCV | 73.9 (L)Comment: Testing | 80.0 - 100.0 fl | EXTERNAL | | | | performed at [facility];[address] | | LAB | | | | [address];[place] | | | | | | [address] | | | | + + + + + + | MCH | 23.3 (L)Comment: Testing | 27.0 - 34.0 pg | EXTERNAL | | | | performed at [facility];[address] | | LAB | | | | [address];[place] | | | | | | [address] | | | | + + + + + + | MCHC | 31.6 (L)Comment: Testing | 32.0 - 35.5 | EXTERNAL | | | | performed at [facility];[address] | g/dL | LAB | | | | [address];[place] | | | | | | [address] | | | | + + + + + + | RDW-CV | 42.4Comment: Testing | 37 - 53 fl | EXTERNAL | | | | performed at [facility];[address] | | LAB | | | [address];[place] | | | | | | [address] | | | | + + + + + + | Platelet | 329Comment: Testing | 150 - 400 K/uL | EXTERNAL | | | Count | performed at [facility];[address] | | LAB | | | Plasma | [address];[place] | | | | | | [address] | | | | + + + + + + | MPV | 7.6Comment: Testing | fl | EXTERNAL | | | | performed at [facility];[address] | | LAB | | | [address];[place] | | | | | | [address] | | | | + + + + + + | Differentia | AUTOMATEDComment: | | EXTERNAL | | | l Type | Testing performed at | | LAB | | | | [facility];[address];[place] [address] | | | | + + + + + + | % Segmented | 75.37Comment: Testing | % | EXTERNAL | | | | performed at [facility];[address] | | LAB | | | Neutrophils | [address];[place] | | | | | | [address] | | | | + + + + + + | % | 16.49Comment: Testing | % | EXTERNAL | | | Lymphocytes | performed at [facility];[address] | | LAB | | | | [address];[place] | | | | | | [address] | | | | + + + + + + | % Monocytes | 6.71Comment: Testing | % | EXTERNAL | | | | performed at [facility];[address] | | LAB | | | | [address];[place] | | | | | | [address] | | | | + + + + + + | % | 0.67Comment: Testing | % | EXTERNAL | | | Eosinophils | performed at [facility];[address] | | LAB | | | [address];[place] | | | | | | [address] | | | | + + + + + + | % Basophils | 0.76Comment: Testing | % | EXTERNAL | | | | performed at [facility];[address] | | LAB | | | | [address];[place] | | | | | | [address] | | | | + + + + + + | Absolute | 8.56 (H)Comment: Testing | 1.90 - 7.40 | EXTERNAL | | | Segmented | performed at [facility];[address] | K/uL | LAB | | | Neutrophils | [address];[place] | | | | | | [address] | | | | + + + + + + | Absolute | 1.87Comment: Testing | 1.00 - 3.90 | EXTERNAL | | | Lymphocytes | performed at [facility];[address] | K/uL | LAB | | | | [address];[place] | | | | | | [address] | | | | + + + + + + | Absolute | 0.76Comment: Testing | 0.00 - 0.80 | EXTERNAL | | | Monocytes | performed at [facility];[address] | K/uL | LAB | | | | [address];[place] | | | | | | [address] | | | | + + + + + + | Absolute | 0.08Comment: Testing | 0.00 - 0.50 | EXTERNAL | | | Eosinophils | performed at [facility];[address] | K/uL | LAB | | | | [address];[place] | | | | | | [address] | | | | + + + + + + | Absolute | 0.09Comment: Testing | 0.00 - 0.10 | EXTERNAL | | | Basophils | performed at [facility];[address] | K/uL | LAB | | | | [address];[place] | | | | | | [address] | | | | + + + + + + | RBC | 1+Comment: | | EXTERNAL | | | Morphology | ANISO1+HYPO2+MICRONORMAL | | LAB | | | | PLT MORPHTesting | | | | | | performed at [facility];[address] | | | | | | [address];[place] | | | | | | [address] | | | | | |MICRO | | | | | |NORMAL PLT MORPH | | | | | |Testing performed at [facility];[address];[place] [address] | | | | | | | [...] | | + +---------+ + + Magnesium (01/25/2015 5:30 PM PST) + + + + + + | Component | Value | Ref Range | Performed | Pathologist | | | | | At | Signature | + + + + + + | Magnesium | 1.9Comment: Testing | 1.7 - 2.4 mg/dL | EXTERNAL | | | | performed at [facility];[address] | | LAB | | | [address];[place], [place] | | | | | | [address] | | | | + + + [...] + +---------+ + + Comprehensive Metabolic Panel (01/25/2015 5:30 PM PST) + + + + + + | Component | Value | Ref Range | Performed | Pathologist | | | | | At | Signature | + + + + + + | Na | 137Comment: Testing | 135 - 143 | EXTERNAL | | | | performed at [facility];[address] | mmol/L | LAB | | | | [address];[place] | | | | | | [address] | | | | + + + + + + | K | 3.8Comment: Testing | 3.5 - 4.9 | EXTERNAL | | | | performed at [facility];[address] | mmol/L | LAB | | | | [address];[place] | | | | | | [address] | | | | + + + + + + | Cl | 101Comment: Testing | 99 - 109 mmol/L | EXTERNAL | | | | performed at [facility];[address] | | LAB | | | | [address];[place] | | | | | | [address] | | | | + + + + + + | CO2 | 26Comment: Testing | 23 - 32 mmol/L | EXTERNAL | | | | performed at [facility];[address] | | LAB | | | | [address];[place] | | | | | | [address] | | | | + + + + + + | Anion Gap | 13Comment: Testing | 5 - 20 mmol/L | EXTERNAL | | | | performed at [facility];[address] | | LAB | | | | [address];[place] | | | | | | [address] | | | | + + + + + + | Glucose, | 262 (H)Comment: Testing | 65 - 99 mg/dL | EXTERNAL | | | Fasting | performed at [facility];[address] | | LAB | | | | [address];[place] | | | | | | [address] | | | | + + + + + + | BUN | 24Comment: Testing | 8 - 25 mg/dL | EXTERNAL | | | | performed at [facility];[address] | | LAB | | | | [address];[place] | | | | | | [address] | | | | + + + + + + | Creatinine | 1.2Comment: Testing | 0.70 - 1.30 | EXTERNAL | | | | performed at [facility];[address] | mg/dL | LAB | | | | [address];[place] | | | | | | [address] | | | | + + + + + + | BUN/Creatin | 20Comment: Testing | | EXTERNAL | | | ine Ratio | performed at [facility];[address] | | LAB | | | | [address];[place] | | | | | | [address] | | | | + + + + + + | Calcium | 8.6Comment: Testing | 8.5 - 10.5 | EXTERNAL | | | | performed at [facility];[address] | mg/dL | LAB | | | | [address];[place] | | | | | | [address] | | | | + + + + + + | Protein, | 7.7Comment: Testing | 6.3 - 8.2 g/dL | EXTERNAL | | | Total | performed at [facility];[address] | | LAB | | | | [address];[place] | | | | | | [address] | | | | + + + + + + | Albumin | 3.2 (L)Comment: Testing | 3.3 - 4.8 g/dL | EXTERNAL | | | | performed at [facility] | | LAB | | | | [address];[place] | | | | | | [address] | | | | + + + + + + | Globulin | 4.4Comment: Testing | 1.3 - 4.9 g/dL | EXTERNAL | | | | performed at [facility];[address] | | LAB | | | | [address];[place] | | | | | | [address] | | | | + + + + + + | A/G Ratio | 0.7 (L)Comment: Testing | 1.0 - 2.4 | EXTERNAL | | | | performed at [facility];[address] | | LAB | | | | [address];[place] | | | | | | [address] | | | | + + + + + + | Bilirubin | 0.4Comment: Testing | 0.1 - 1.5 mg/dL | EXTERNAL | | | Total | performed at [facility] | | LAB | | | | [address];[place] | | | | | | [address] | | | | + + + + + + | ALP, | 163 (H)Comment: Testing | 35 - 115 U/L | EXTERNAL | | | External | performed at [facility] | | LAB | | | | [address];[place] | | | | | | [address] | | | | + + + + + + | AST | 16Comment: Testing | 10 - 45 U/L | EXTERNAL | | | | performed at [facility];[address] | | LAB | | | | [address];[place] | | | | | | [address] | | | | + + + + + + | ALT | 23Comment: Testing | 10 - 65 U/L | EXTERNAL | | | | performed at [facility];[address] | | LAB | | | | [address];[place] | | | | | | [address] | | | | + + + [...] | | | | at [facility];[address];[place] [address] | | | | + + + + + + + + | Specimen | + + | Blood specimen | | (specimen) | + + + +---------+ + + | Performing | Address | City/State/Zipcode | Phone Number | | Organization | | | | + +---------+ + + | EXTERNAL LAB | | | | + +---------+ + + POC Glucose (01/25/2015 5:07 PM PST) + + + + + + | Component | Value | Ref Range | Performed | Pathologist | | | | | At | Signature | + + + + + + | Glucose, | 230 (H)Comment: Testing | 65 - 99 mg/dL | EXTERNAL | | | Fingerstick | performed at [facility] | | LAB | | | | [address];[place] | | | | | | [address] | | | | + + + [...]
--- OUTSIDE RECORDS SUMMARY | ~2019-10-12 | XMS | Encounter Summary ---
Demographics + + + | Address | [address] | | | [place] [address] | + + + | Home Phone [...] + | Sammi Kohler | ECON | [place] [address] | | + + + + + Care Team Providers + +------+ + | Care Residential Treatment Specialist Name | Role | Phone | + +------+ + | Holly Pack NP | PCP | | + +------+ + Reason for Visit +--------+ + | Reason | Comments | +--------+ + | Other | Leg pain | +--------+ + Encounter Details +--------+---------+ + + + | Date | Type | Department | Care Team | Description | +--------+---------+ + + + | 09/17/ | Office | [facility] | Holly Pack, | Cellulitis of right | | 2020 | Visit | [facility] | COLLECTIONS DIRECTOR [address] | leg (Primary Dx); | | | | [address] | [address] [place], | Chronic obstructive | | | | [place], [place] | [place] [address] | pulmonary disease, | | | | [address] | [phone] | unspecified COPD | | | | [phone] | | type ([facility]); Type 2 | | | | | | diabetes mellitus | | | | | | with hyperglycemia, | | | | | | with long-term | | | | | | current use of | | | | | | insulin ([facility]); | | | | | | Noncompliance with | | | | | | medications; BPH | | | | | | with | | | | | | obstruction/lower | | | | | | urinary tract | | | | | | symptoms; Chronic | | | | | | a-fib (HCC); Other | | | | | | social stressor | +--------+---------+ + + + Social History [...] + + + | Blood Pressure | 118/68 | 09/18/2019 1:19 PM | | | | | PDT | | + + + + + | Pulse | 63 | 09/18/2019 1:19 PM | | | | | PDT | | + + + + + | Temperature | 36.8 C (98.3 F) | 09/18/2019 1:19 PM | | | | | PDT | | + + + + + | Respiratory Rate | 18 | 09/18/2019 1:19 PM | | | | | PDT | | + + + + + | Oxygen Saturation | 98% | 09/18/2019 1:19 PM | | | | | PDT | | + + + + + | Inhaled Oxygen | - | - | | | Concentration | | | | + + + + + | Weight | 94.1 kg (207 lb 6.4 | 09/18/2019 1:19 PM | | | | oz) | PDT | | + + + + + | Height | - | - | | + + + + + | Body Mass Index | 28.93 | 09/07/2019 6:37 AM | | | [...] of this encounter Patient Instructions Patient Instructions Holly Pack NP - 09/18/2019 1:30 PM PDTSo we will treat infecti on as outpatient - 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 Subjective: Patient ID: Kevyn Guzman is a 63 y.o. male Patient presents for Chief Complaint Patient presents with Other Leg pain Significant history of: Past Medical History: Diagnosis Date Acute pulmonary embolism (HCC) 10/14/2017 Anxiety ARF (acute renal failure) ([facility]) 03/02/2013 Atrial fibrillation (HCC) Basal cell carcinoma 09/26/2012 arm and back COPD (chronic obstructive pulmonary disease) ([facility]) 03/02/2013 hypoxemia on 2 lts nc Depression Development delay Diabetes mellitus type II DVT (deep venous thrombosis) ([facility]) 03/29/2018 Facial droop 07/08/2013 GIB [...] Gibson MD; Location: [facility]; Service: Gastroen terology; Laterality: N/A; [...] FROZEN SECTION; Surgeon: Sy murcia MD; Location: [facility]; Service: Plastics; Laterality: Left; forearm SKIN BIOPSY SKIN CANCER EXCISION Left 10/10/2012 Procedure: EXCISION - SKIN CANCER; Surgeon: Sy Fierro MD; Location: [facility]; Service: Plastics; Laterality: Left; upper arm and upper back w/frozen section UPPER GASTROINTESTINAL ENDOSCOPY UPPER GASTROINTESTINAL ENDOSCOPY 03/03/2013 Procedure: ESOPHAGOGASTRODUODENOSCOPY; Surgeon: Howie Gibson MD; Location: [facility]; Se rvice: Gastroenterology; Laterality: N/A; [...] 2 times daily 6 0 tablet 0 Glucose Blood (BLOOD GLUCOSE TEST [...] visit. HPI Patient reports that he has generalized weakness starting last week, having difficulty zahida ng for himself secondary to weakness. Has decreased appetite. BS has been 130 this morning a nd 191 prior to lunch. He noticed right leg with redness starting Monday associated with allen n. Patient's medications, allergies, past medical, surgical, social and family histories were obtained and reviewed as appropriate. Review of Systems Constitutional: Positive for diaphoresis. Negative for activity change, appetite change, ch ills, fever and unexpected weight change. Respiratory: Negative for cough and shortness of breath. Cardiovascular: Negative for chest pain and leg swelling. Gastrointestinal: Positive for constipation (New-onset constipation). Negative for abdomina l pain and blood in stool. Genitourinary: Negative for dysuria. Skin: Positive for rash. Neurological: Positive for weakness, numbness and headaches (Occasional). Negative for sync ope and speech difficulty. Objective: Physical Exam BP 118/68 | Pulse 63 | Temp 36.8 C (98.3 F) (Temporal) | Resp 18 | Wt 94.1 kg (207 lb 6.4 oz) | SpO2 98% | BMI 28.93 kg/m Lab Results Component Value Date NA [...] 8.9 (H) 07/25/2019 No components found for: [id number], PTHINT No results found for: [id number] Lab Results Component Value Date TSH 2.780 03/27/2019 No results found for: IRON, TIBC, FERRITIN . No results found for: FERRITIN Assessment/Plan: Kevyn was seen today for other. Diagnoses and all orders for this visit: Cellulitis of right leg Discussed treatment of infection at this time appears appropriate for outpatient treatment, we did discuss s/s necessitte ED evaluation Start - doxycycline (VIBRAMYCIN) 100 mg capsule; Take 1 capsule by mouth 2 times daily for 10 days. Chronic obstructive pulmonary disease, unspecified COPD type (HCC) Without exacerbation, continue inhalation prn Type 2 diabetes mellitus with hyperglycemia, with long-term current use of insulin ([facility]) Reporting BS wnl with poor appetite and recent dose increase insulin, reports able to affor d insulin as currently prescribed. Recommend [facility] diet Lab today r/o DKA and check a1c as patient statement of controlled BS may not be accurate Noncompliance with medications Patient Reports compliant with medication Note recent INR therapeutic Instructed importance of taking rate control metoprolol, warfarin anticoagulation and insul in BPH with obstruction/lower urinary tract symptoms We will defer prostate medication as patient does not have funds for medication Chronic a-fib (HCC) Rate controlled, continue current Constipation otc management discussed Other social stressor Call placed to Samuel counseling case manager Elizabeth phone [phone], left voicemail requesting incre ase caregiver assistance and I will be available for further questions. HH has discharged patient and I note concerns regarding patient poor self care. On exam santiago kinsey is dressed with fair hygiene . Alert/oriented. I spent over 40 minutes of time > 50% of which were spent face to face with patient during this visit on counseling and/or coordination of care regarding the problems documented above . documented in this e ncounter Miscellaneous Notes Addendum Note - Holly Pack NP - 09/18/2019 1:30 PM PDT Addended by: HOLLY PACK on: 09/19/2019 10:53 AM Modules accepted: Orders documented in this encounter Plan of Treatment +--------+ + + + + | Date | Type | Specialty | Care Team | Description | +--------+ + + + + | 10/16/ | Anti-coag | Anticoagulation | Brittany Zaragoza | | 2019 | visit | | [address] | | | | | | [facility], | | | | | | [place] [address] | | | | | | [phone] | | | | | | | | +--------+ + + + + documented as of this encounter Results Hemoglobin A1C (09/18/2019 2:34 PM PDT) + + + + + + | Component | Value | Ref Range | Performed | Pathologist | | | | | At | Signature | + + + + + + | Hemoglobin | 10.6 (H)Comment: | 4.8 - 5.6 % | REFERENCE | | | A1c | Prediabetes: 5.7 - | | LAB | | | | 6.4 Diabetes: | | [facility] | | | | >6.4 | | LABORATORY | | | | Glycemic control for | | | | | | adults with diabetes: | | | | | | <7.0Testing performed at | | | | | | [facility], [address], | | | | | | [facility] [address], [facility] | | | | | | [address] | | | | + + + + + + + + | Specimen | + + | Blood | + + + + + + + | Performing | Address | City/State/Zipcode | Phone Number | | Organization | | | | + + + + + | REFERENCE LAB | [address] [place] [address] | [place], [place] | [phone] | | [facility] | [address] | [address] | | | LABORATORY | | | | + + + + + | REFERENCE [facility] | [address] [place] [address] | [place], [place] | | | [facility] | Blvd. | [address] | | | LABORATORY | | | | + + + + + documented in this encounter Visit Diagnoses + + | Diagnosis | + + | Cellulitis of right leg - Primary Cellulitis and abscess of leg, except foot | + + | Chronic obstructive pulmonary disease, unspecified COPD type (HCC) | + + | Type 2 diabetes mellitus with hyperglycemia, with long-term current use of insulin | | (HCC) | + + | Noncompliance with medications Personal history of noncompliance with medical | | treatment, presenting hazards to health | + + | BPH with obstruction/lower urinary tract symptoms Hypertrophy of prostate with | | urinary obstruction and other lower urinary tract symptoms (LUTS) | + + | Chronic a-fib (HCC) Atrial fibrillation | + + | Other social stressor Unspecified psychosocial circumstance | + + documented in this encounter"
--- OUTSIDE RECORDS SUMMARY | ~2019-10-12 | XMS | Encounter Summary ---
Demographics + + + | Address | [address] | | | [place] [address] | + + + | Home Phone [...] + | Sammi Kohler | ECON | [place] [address] | | + + + + + Care Team Providers + +------+ + | Care Medical Care Administrator Name | Role | Phone | + +------+ + PCP | Unavailable | + +------+ + Encounter Details +--------+ + + + + | Date | Type | Department | Care Team | Description | +--------+ + + + + | 10/13/ | Hospital | [facility] | Patti Kelly DO | Chest pain, | | 2018 - | Encounter | [facility] | [address] | unspecified type; | | | | CARE FLO[address] | [place] [address] | Shortness of breath; | | 10/18/ | | [address] | [phone] | Acute | | 2018 | | [place], [place] | | electrocardiogram | | | | [address] | | changes; | | | | [phone] | | Neutrophilic | | | | | | leukocytosis; Other | | | | | | acute pulmonary | | | | | | embolism without | | | | | | acute cor pulmonale | | | | | | ([facility]); Essential | | | | | | hypertension; | | | | | | Obstructive sleep | | | | | | apnea syndrome; | | | | | | Paroxysmal atrial | | | | | | fibrillation ([facility]) | +--------+ + + + + [...] Date of Service: 10/18/17 1002 Status: Addendum Almond Blancher Operator: Bruno Burnham MD (Physician) Related Notes: Original Note by Bruno Burnham MD (Physician) filed at 10/19/17 0037 [facility]: Hospitalist Discharge Summary Date [...] normal. Judgment normal. Labs: Recent Labs Lab 10/17/17 0510/16/176 10/15/17 0119 WBC 9.58 10.92 10.57 HGB [...] hours. No results for input(s): PHART, PO2ART, YPB4NFP, C4RVOMNO, BEART in the last 168 hours. Recent [...] 62%. Using the risk stratification system at the [facility], this examination equates to at least a low risk based on this imaging, arising f rom the criteria below (1). Note that this should be interfaced with clinical and other data , potentially affecting final categorization. 1. [place] [employer] and [place] [employer] Scientific Statement. Circulation (2008); 118: p 6834-9154 Selection Destin t Definition Low Risk 1.Normal [...] mortality rate. 1. Electronically signed by Sravan Guiterrez MD on 10/07 9:[address] Chest [...] m/s MV DecT: 283.92 ms MV E Imck: 0.78 m/s MV E/A Ratio: 0.88 MV [...] TV A Mick: 0.47 m/s TV Dec Cache: 2.56 m/s2 TV Dec Time: 234.96 ms TV E Mick: 0.60 m/s TV E/A Ratio: 1.27 Clinical Research Management Associate: JEANCARLOS Authenticated by: Vel Ingram Report Date/Time: [...] Vmean: 1.31 m/s LVOT VTI: 35.95 cm Clinical Research Management Associate: Authenticated by: GINA INGRAM MD Report Date/Time: [...] function. Discharge Information: Follow up: Anthony Goodson, BOX WORKER [address] [place] [address] Follow up on 11/06/2017 You have an [...] tablet Refills: 0 Commonly known as: LaMICtal gcgpasuqt-tjbtxdii-wopnpshda hydroxide-simethicone Refills: 0 lithium 300 MG CR [...] Your Medications These medications were sent to [facility], [address] [address] amLODIPine 10 MG tablet insulin detemir 100 [...] original. Progress Notes by Sanjuanita Oliva RD, CDE at 10/18/17 1438 Author: Sanjuanita Oliva RD, CDE Service: (none) Author Type: Construction Driller Filed: 10/18/17 6739 Date of Service: 10/18/171432 Status: Signed Almond Blancher Operator: Sanjuanita Oliva RD, CDE (Construction Driller) Met briefly with pt. Is ready for discharge. Reports at home he takes: 45 units of insul in at bedtime and he takes 15 units with each meal. States he checks his blood sugars [facility] and that he follows up with Fanny [...] up with his pcp for further diabetes clary art. Sanjuanita Oliva RD, MPH, CDE, Construction Driller 10/18/2017 2:37 PM onver ivana Transaction, Provider Unknown - 10/18/2017 1:58 PM PDT Nurse Progress Note by Diane Richard RN at 10/18/17 1358 Author: Diane Richard RN Service: (none) Author Type: Registered Nurse Filed: 10/18/17 1359 Date of Service: 10/18/17 1358 Status: Signed Almond Blancher Operator: Diane Richard RN (Registered Nurse) Discharge instructions given by EVE Dominique and understood. Prescription delivered to room. I V removed. Pt waiting for ride. onver ivana Transaction, Provider Unknown - 10/18/2017 11:17 AM PDT Case Management by Leanna Leblanc RN at 10/18/17 1117 Author: Leanna Leblanc RN Service: (none) Author Type: Registered Nurse Filed: 10/18/17 1337 Date of Service: 10/18/17 1117 Status: Addendum Almond Blancher Operator: Leanna Leblanc RN (Registered Nurse) Related Notes: Original Note by Leanna Leblanc RN (Registered Nurse) filed at 10/18/17 1226 Discharge planning: Signed prescription for Eliquis [facility] [phone]. 1100: CM was informed By pt has requested to change PCP's and requested one from [facility] . 1215: CM met with pt to confirm request for new PCP, pt confirmed [facility]. GPS e-mailed, awaiting scheduled appointment. Pt [...] Nurse Filed: 10/18/17 0640 Date of Service: 10/18/1717 Status: Addendum Almond Blancher Operator: Bucky Castrejon RN (Registered Nurse) Related Notes: Original Note by Bucky Castrejon RN (Registered Nurse) filed at 0620 No acute events. INR 2.2. SBP in the 160's, HR 50's-60's. Chart check complete. onver ivana Transaction, Provider Unknown - 10/17/2017 7:33 PM PDT Nurse Progress Note by Randa Gr RN at 10/17/171932 Author: Randa Gr RN Service: (none) Author Type: Registered Nurse Filed: 10/17/171932 Date of Service: 10/17/171932 Status: Signed Almond Blancher Operator: Randa Gr RN (Registered Nurse) No significant [...] Date of Service: 10/17/17 1122 Status: Signed Almond Blancher Operator: Diane Richard RN (Registered Nurse) Handoff given to EVE Tolentino onver ivana Transaction, Provider Unknown - 10/17/2017 10:38 AM PDT Progress Notes by RYAN Conti at 10/17/17 1038 Author: RYAN Conti Service: Pharmacy Author Type: Pharmacist Filed: 10/17/17 1038 Date of Service: 10/17/17 1038 Status: Attested Almond Blancher Operator: RYAN Conti (Pharmacist) Cosigner: Nani Lind RPH at 10/17/17 1044 Attestation signed by Nani Lind RPH at 10/17/17 1044 Agree with vice president fixed income assessment and recommendation to transition to oral [...] mirialis. All infection markers have been normal [facility] hospitalization except for mild leukocytosis on admit. [facility] Guide recommendations for acute uncomplicated male UTI [...] 10/17/172028 Date of Service: 10/17/17919 Status: Addendum Almond Blancher Operator: Bruno Burnham MD (Physician) Related Notes: Original Note by Bruno Burnham MD (Physician) filed at 10/17/172026 [facility]: Hospitalist Progress Note Pt: Norah Gr AGE/SEX: 61 y.o. male ROOM: 44/4464-1 : 1955 PCP: Lou Preston ADMIT DATE: [...] hours. No results for input(s): PHART, PO2ART, KBB6PJX, B8LONAYB, BEART in the last 168 hours. Recent [...] BP 5. CKD stage 3, stable. 6. AWRD, CPAP at bedtime 7. COPD, Stable continue [...] 10/17/1752 Date of Service: 10/17/17643 Status: Signed Almond Blancher Operator: Bucky Castrejon RN (Registered Nurse) No acute events, HR 40-60's during shift. pt still c/o intermittent chest pain. Chart check complete. onver ivana Transaction, Provider Unknown - 10/16/2017 6:40 PM PDT Nurse Progress Note by Flash Gao RN at 10/16/171839 Author: Flash Gao RN Service: (none) Author Type: Registered Nurse Filed: 10/16/171840 Date of Service: 10/16/171839 Status: Signed Almond Blancher Operator: Flash Gao RN (Registered Nurse) PRN tylenol [...] 101 Date of Service: 10/16/171599 Status: Addendum Almond Blancher Operator: Leanna Leblanc RN (Registered Nurse) Related Notes: Original Note by Leanna Leblanc RN (Registered Nurse) filed at 10/17/17 1010 Discharge planning: CM met with pt to discuss discharge planning. He indicated he lives alone in an apartment, has a transmitter tester once/week for cooking, cleaning and laundry. 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 He is not interested in moving to an [facility] presently, said he lived at an [facility] before, but he did not like it because of his lack of independence. He will think of it in the future when he really needs it. He will like to use [facility] to FU wit his INR's. Konstantin Negron MD - 10/16/2017 12:48 PM PDTFormatting of this note might be different from the bobbi ginal. Progress Notes by Mel Velásquez MD at 10/16/17 8178 Author: Mel Velásquez MD Service: Hospitalist Author Type: Physician Filed: 10/16/17 0953 Date of Service: 10/16/17 687 Status: Signed Almond Blancher Operator: Mel Velásquez MD (Physician) [facility]: Hospitalist Progress Note Hospital Day: LOS: [...] regarding reason for discontinuing anticoagulation Paroxysmal AF [id number] score 4 continue coumadin Telemetry Continue BB [...] Progress Note by Flash Gao RN at 10/15/17 183 Author: Flash Gao RN Service: (none) Author Type: Registered Nurse Filed: 10/15/171835 Date of Service: 10/15/171833 Status: Signed Almond Blancher Operator: Flash Gao RN (Registered Nurse) Tele did [...] Filed: 10/15/17 1528 Date of Service: 10/15/17 1520 Status: Signed Almond Blancher Operator: Rimma Sen RN (Registered Nurse) 09/09/18 1500 Discharge Planning Evaluation Admitting Diagnosis Lung PE (KESHAWN, pericardial discomfort) Readmission No Living Arrangements Alone Support Systems Family members;[facility] community Type of Residence Private residence House type Apartment (bottom floor) Elevator available No Bathrooms on 1st Floor 1-Full Independent with ADL's Yes Independent with Mobility Yes Home Care Services No Caregiver after Discharge No Mental Status Oriented Prior functional status independent Power of Manager Hris No Anticipated Discharge Plan Post Acute Care [...] Pt now has an apartment on [address] [facility]. Pt . He has a 38 yr old son who is disabled. Pt received assistance fro m parents Edgar & Sammi Kohler. Friend in the complex and caodaism. Patient's PCP is: Jerrell Diego Patient's insurance: Medicare/Medicaid Coverage concerns: none Medication coverage/concerns: none Rx Bedside Delivery: Community resources utilized / needed: tbd Assistance in transportation: dial a ride Identification of any specific education / training: tbd Barriers to Discharge / Alternative housing needed: none Anticipated DCP: To home, evaluation for [facility]. CM to f/u on discharge needs. Jessica Sen RN,BSN,CM Konstantin Negron MD - 10/15/2017 9:00 AM PDTFormatting of this note might be different from the bobbi ribera. Progress Notes by Mel Velásquez MD at 10/15/17899 Author: Mel Velásquez MD Service: Hospitalist Author Type: Physician Filed: 10/15/17 1011 Date of Service: 10/15/17899 Status: Signed Almond Blancher Operator: Mel Velásquez MD (Physician) [facility]: Hospitalist Progress Note Hospital Day: LOS: [...] Infusions dextrose heparin 50 units/mL 18 Units/kg/hr (10/15/17 0224) PRN Medications acetaminophen OR acetaminophen, dextrose, dextrose, [...] regarding reason for discontinuing anticoagulation Paroxysmal AF [id number] score 4 continue coumadin Telemetry Continue BB [...] 10/15/17422 Date of Service: 10/15/17417 Status: Signed Almond Blancher Operator: Ladonna Mcgowan RN (Registered Nurse) Hospitalist Dr. [...] since . MD reducing dose. See orders. [facility] End of shift chart review complete. LADONNA MCGOWAN RN onver ivana Transaction, Provider Unknown - 10/14/2017 11:00 PM PDT Progress Notes by Nav Kurtz CRT at 10/14/172299 Author: Nav Kurtz CRT Service: (none) Author Type: Certified Respiratory Therap ist Filed: 10/15/17 0305 Date of Service: 10/14/172299 Status: Signed Almond Blancher Operator: Nav Kurtz CRT (Certified Respiratory Therapist) Pt refusing cpap for the night. No distress noted. Pt on monitors. RN aware. onver ivana Transaction, Provider Unknown - 10/14/2017 6:46 PM PDT Nurse Progress Note by Flash Gao RN at 10/14/171845 Author: Flash Gao RN Service: (none) Author Type: Registered Nurse Filed: 10/14/171846 Date of Service: 10/14/171845 Status: Signed Almond Blancher Operator: Flash Gao RN (Registered Nurse) Pt has [...] 1109 Date of Service: 10/14/17914 Status: Signed Almond Blancher Operator: Mel Velásquez MD (Physician) [facility]: Hospitalist Progress Note Hospital Day: LOS: 0 days SUBJECTIVE Patient Summary: Mr. Gr is a 61 yr old man with hx of basal cell Ca, COPD, AF and is not coumadin, hx of GI bleeding, HDL, WARD, hx of CVA, CKD stage G3, type 2 DM, ?bipolar disorder presented to [facility] ED with pressure like chest pain, [...] regarding reason for discontinuing anticoagulation Paroxysmal AF [id number] score 4 Will resume coumadin Telemetry Continue [...] Service: (none) Author Type: Registered Nurse Filed: 10/14/17 0302 Date of Service: 10/14/17258 Status: Signed Almond Blancher Operator: Jenn Ohara RN (Registered Nurse) Upon admit, patient having 6/10 chest pain with "crushing" pain radiating to his Left shoul carlos. notified. Pt given additional 0.4mg SL nitro x3 with a decrease of chest pain to 4 /10 but unchanged left shoulder pain. notified. Pt given 2mg morphine IV without resolu tion of pain. MD notified. Pt started on nitro gtt. Will continue to monitor. EVE Vasquez onver ivana Transaction, Provider Unknown - 10/14/2017 2:16 AM PDT Progress Notes by Pepe Xie RPH at 10/14/17215 Author: Pepe Xie RPH Service: Pharmacy Author Type: Pharmacist Filed: 10/14/17215 Date of Service: 10/14/17215 Status: Signed Almond Blancher Operator: Pepe Xie RPH (Pharmacist) Note ccl 56ml/min meds reviewed pharmacy will follow [facility] 0216 docume nted in this encounter H&P Notes Patti Kelly DO - 10/13/2017 9:54 PM PDTFormatting of this note might be different from t keaton original. H&P by Patti Kelly DO at 10/13/172153 Author: Patti Kelly DO Service: Hospitalist Author Type: Physician Filed: 10/14/17627 Date of Service: 10/13/172153 Status: Signed Almond Blancher Operator: Patti Kelly DO (Physician) [facility]: Hospitalist Admission History & [...] - INCISIONAL; Surgeon: Jevon Vargas DO; Location: [facility]; Service: General; Laterality: [...] FROZEN SECTION; Surgeon: Sy Fierro MD; Location: [facility]; Service: Plastics; Laterality: Left; forearm UNLISTED PROCEDURE ARTHROSCOPY UPPER GASTROINTESTINAL ENDOSCOPY Allergies Allergen Reactions Vitamin B12 Rash Prior to Admission medications Medication Sig Start Date End Date Taking? Authorizing Provider Albuterol Sulfate (VENTOLIN HFA IN) Inhale 2 puffs into the lungs as needed. 108 mcg/act Historical Provider Lhsnb-S-Roorixzvrssuw (BEANO) TABS Take 150 Units by mouth [...] by m outh at bedtime Historical Provider mlhbtbxob-mbkedxpg-hvgzdxrfa hydroxide-simethicone Take 40 mLs by mouth daily [...] daily. Take 1 tablet by mouth at [facility]. Hold for Dizziness and Heart Rate <65 Historical Provider nitroGLYCERIN (NITROSTAT) 0.[address] 0.4 mg under the tongue every 5 (five) min utes as needed. Historical Provider NOVOLOG 100 UNIT/ML injection INJ 3U SUB-Q TID(AC) AND INJECT SUBCUTANEOUSLY PER SLIDING SC SUSAN 1-70= 2U, 71-100=3U, 101-120= 4U, 121-150=5U, 151-180=6U, 181-210= 7U, 211- 3/18/14 Ramesh Yeh MD omeprazole (PRILOSEC) 20 MG [...] alone x 1 wk, moved from [facility], , 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 2 [...] 3 -Aspirin Atrial fibrillation: -Was on coumadin -VRO7KU7-Jvvm=5%, anticoagulation is strongly recommended -Telemetry -Heparin drip [...] 10/16/17915 Date of Service: 10/16/17914 Status: Signed Almond Blancher Operator: CITLALY Alaom (Advanced Registered Nurse Ricky) Pre-procedure Diagnoses: 1. Chest pain, unspecified type [R07.9] Post-procedure Diagnoses: 1. Chest pain, unspecified type [R07.9] Procedures: 1. NM MYOCARDIAL PERFUSION SPECT - STRESS AND REST [MNY213 (Custom)] [facility]: Diagnostic Imaging/Nuclear Medicine Cardiac Stress Test [...] 10/13/172332 Date of Service: 10/13/171851 Status: Attested Almond Blancher Operator: CITLALY Boyd (Nurse Practitioner) Cosigner: Reynaldo Prather DO at 10/14/1735 Attestation signed by Reynaldo Prather DO at 10/14/1735 I have reviewed the patient's chart. I was available for consultation during the care of the patient. Reynaldo Prather DO Procedures [facility] EMERGENCY DEPARTMENT History of Present Illness Patient Identification Norah Gr is a 61 y.o. male. Patient information was obtained from patient. History/Exam limitations: Developmentally delayed Patient presented to the Emergency Department by: Nava Tracey 6919 PCP: Per Pt None Chief Complaint Chief [...] He reports he does not have a hemmer chainstitch. Denies sweating, back pain, nausea and vomiting. [...] - INCISIONAL; Surgeon: Jevon Vargas DO; Location: [facility]; Service: General; Laterality: [...] FROZEN SECTION; Surgeon: Sy Fierro MD; Location: [facility]; Service: Plastics; Laterality: Left; [...] alone x 1 wk, moved from [facility], , 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 2 [...] DDx includes, but is not limited to VA, CAD, arrhythmia, costochondritis, GERD, gastritis, gastric ulcer, [...] C) - - 20 96 % - 10/13/171842 150/77 98 F (36.7 C) Oral 103 [...] tablet 0.4 mg (0.4 mg Sublingual Given 10/13/177) iopamidol (ISOVUE-370) 76 % injection 100 mL (100 mLs Intravenous Given 10/13/17 2314) Labs & Radiology Results Laboratory Evaluation Results Procedure Component Value Ref Range Date/Time BNP [[id number]] Collected: 10/13/171835 Order Status: Completed Specimen: Blood Updated: 10/13/172252 BRAIN NATRIURETIC PEPTIDE 11.2 0 - 100 pg/mL Troponin I, Lab [[id number]] Collected: 10/13/171835 Order Status: Completed Specimen: Blood Updated: 10/13/171927 TROPONIN I <0.02 0.00 - 0.10 ng/mL Cardiac Panel [[id number]] (Abnormal) Collected: 10/13/171835 Order Status: Completed Updated: [...] (none) Author Type: Physical Therapist Filed: 10/18/17 1206 Date of Service: 10/18/17 1113 Status: Signed Almond Blancher Operator: Ale Drake PT (Physical Therapist) PHYSICAL THERAPY EVALUATION PT Received On: 10/18/17 Reason for Treatment: Other (comment) (PE, KESHAWN) Requires PT Follow Up: Awaiting tx order Follow up PT Only?: No Focus for Next Treatment: (balance) PT Eval/Reassessment Date: 10/18/17 Assistance Required: 1 person Java Golden Gate Developer Needed: No Recommendations: Prior Setting Equipment Recommended: [...] to this admission Prior Function Level of [place]: Modified independent with functional mobility, Modified independent with ADLs, Assist with IADLs Falls in Past Year: Yes (once down stairs, fx left clavicle) Lives With: Alone Comments: transmitter tester once a week. RUE Assessment: (decreased rom [...] Assistive Device: Least restricitve device Low - 20447 Moderate - 37824 High - 96800 History [] no personal factors &/or comorbidities [] 1-2 personal factors &/or comorbiditi es [] 3 or more personal factors &/or comorbidities Examination [x] 1-2 elements [] 3 elements [] 4 or more elements Clinical Presentation [x] stable [] evolving [] unstable Clinical Decision Making Complexity: [x] Low 11170 [] Moderate 48602 [] High 9 7147 Tinetti Performance Oriented Mobility Assessment ([place]) Tinetti [...] - 10/18/2017 9:52 AM PDTFormatting of anh s note might be different from the original. Plan of Care by Diane Richard RN at 10/18/17951 Author: Diane Richard RN Service: (none) Author Type: Registered Nurse Filed: 10/18/17951 Date of Service: 10/18/17951 Status: Signed Almond Blancher Operator: Diane Richard RN (Registered Nurse) Fall Prevention Goal: No Falls during Hospital Stay Outcome: Progressing Maintain bed in low, locked position at all times. [place] patient and family to hospital surroundings. Provide [...] 10/17/171958 Date of Service: 10/17/171958 Status: Signed Almond Blancher Operator: Bucky Castrejon RN (Registered Nurse) Problem: Pain [...] - 10/17/2017 9:57 AM PDTFormatting of anh s note might be different from the original. Plan of Care by Diane Richard RN at 10/17/17956 Author: Diane Richard RN Service: (none) Author Type: Registered Nurse Filed: 10/17/17957 Date of Service: 10/17/17956 Status: Signed Almond Blancher Operator: Diane Mary Jose Manuel, RN (Registered Nurse) Fall Prevention Goal: No Falls during Hospital Stay Outcome: Progressing Maintain bed in low, locked position at all times. [place] patient and family to hospital surroundings. Provide [...] 10/16/172006 Date of Service: 10/16/172006 Status: Signed Almond Blancher Operator: Bucky Castrejon RN (Registered Nurse) Problem: Pain [...] Service: (none) Author Type: Registered Nurse Filed: 10/16/17 103 Date of Service: 10/16/17 103 Status: Signed Almond Blancher Operator: Flash Gao RN (Registered Nurse) Problem: Safety [...] 10/16/17248 Date of Service: 10/16/17248 Status: Signed Almond Blancher Operator: Ladonna Mcgowan RN (Registered Nurse) Problem: Safety [...] 10/15/171411 Date of Service: 10/15/171411 Status: Signed Almond Blancher Operator: Flash Gao RN (Registered Nurse) Problem: Safety [...] 10/15/17327 Date of Service: 10/15/17327 Status: Signed Almond Blancher Operator: Ladonna Mcgowan RN (Registered Nurse) Problem: Pain Goal: Patient's [...] 10/14/171102 Date of Service: 10/14/171102 Status: Signed Almond Blancher Operator: Flash Gao RN (Registered Nurse) Problem: Safety [...] 10/14/17224 Date of Service: 10/14/17224 Status: Signed Almond Blancher Operator: Jenn Ohara RN (Registered Nurse) Problem: Safety [...] Anticoagulation | Leeladaniel Brittany | | | 2019 | visit | | [address] | | | | | | [place], | | | | | | [place] [address] | | | | | | [phone] | | | | | | | [...] | | | Fingerstick | performed at [facility];[address] | | LAB | | | | [address];[place] | | | | | | [address] [...] | | | Patient | performed at [facility];[address] | | LAB | | | | [address];[place], [place] | | | | | | [address] | | | | + + + + + + + + | Specimen | + + | Blood specimen | | (specimen) | + + + +---------+ + + | Performing | Address | City/State/Zipcode | Phone Number | | Organization | | | | + +---------+ + + | EXTERNAL LAB | | | | + +---------+ + + Protime INR (10/18/2017 5:36 AM PDT) + + + [...] [facility];[address] | | | | | [address];[place] | | | | | | [address] | | | | + + + [...] | | | Fingerstick | performed at [facility];[address] | | LAB | | | | [address];[place] | | | | | | [address] | | | | + + + [...] | | | Fingerstick | performed at [facility];[address] | | LAB | | | | [address];[place] | | | | | | [address] | | | | + + + [...] | | | Patient | performed at [facility];[address] | | LAB | | | [address];[place], [place] | | | | | | [address] | | | | + + + [...] | | | Fingerstick | performed at [facility];[address] | | LAB | | | | [address];[place], [place] | | | | | | [address] | | | | + + + [...] LVOT | | | VTI: 35.95 cm Clinical Research Management Associate: Authenticated by: VEL | | | MD NATALY Report Date/Time: 10-17-2017 18:51:49 | | + + + + + | Procedure Note | + + | Joaquin Ramos Conversion - 09/19/2018 1:06 AM PDT Patient Name: Sim GR of | | : 1955 Performing Physician: VEL INGRAM, | | MD INDICATIONS E | | valuate LVOT with [...] m/sLVOT Vmean: 1.31 m/sLVOT VTI: 35.95 cm Clinical Research Management Associate: ASAuthenticated | | by: Ke GUERRERO Date/Time: [...] |LVOT VTI: 35.95 cm | | | |Clinical Research Management Associate: | |Authenticated by: VEL INGRAM MD | [...] | | | Patient | performed at [facility];[address] | | LAB | | | | [address];[place] | | | | | | [address] | | | | + + + [...] | | | Fingerstick | performed at [facility] [facility];[address] | | LAB | | | | [address];[place], [place] | | | | | | [address] | | | | + + + [...] | | | Patient | performed at [facility];[address] | | LAB | | | | [address]anna [address];[place] | | | | | | [address] | | | | + + + [...] | performed at [facility] | | | | | | [facility];[place], [place] | | | | | | [address] | | | | + + + [...] | performed at [facility], [address] | [address] | LAB | | | | Alexandrea Jenkins, | | | | | | [place] [address] | | | | + + + [...] | performed at [facility], [address] | | | | | | [facility], | | | | | | [place] [address] | | | | + + + [...] | | | Fingerstick | performed at [facility];[address] | | LAB | | | | [address];[place], [place] | | | | | | [address] | | | | + + + [...] | | | Fingerstick | performed at [facility];[address] | | LAB | | | | Breanna Jenkins;[place] | | | | | | [address] | | | | + + + [...] | | | Fingerstick | performed at [facility];[address] | | LAB | | | | [address];[place], [place] | | | | | | [address] | | | | + + + [...] | | | Fingerstick | performed at [facility];[address] | | LAB | | | | Breanna Jenkins;[place] | | | | | | [address] | | | | + + + [...] | | | Fingerstick | performed at [facility];[address] | | LAB | | | | Breanna Jenkins;[place] | | | | | | [address] | | | | + + + [...] | | | affecting final categorization. 1. [place] [employer] | | | and [place] [employer] Scientific Statement. Circulation | | | (2008); 118: p 5110-6025 Selection Text Definition Low | | | [...] Ramos Conversion - 09/19/2018 1:06 AM PDT NORAH GRNM MYOCARDIAL PERFUSION | | SPECT - STRESS [...] | | potentially affecting final categorization. 1. [place] [employer] and [place] | | College of Cardiology Scientific Statement. Circulation (2008); 118: p 5437-3344 | | Selection Text Definition Low Risk [...] | |final categorization. | | | |1. [place] [employer] and [place] [employer] Scientific Statement. Cir culation (2007); 118: p 7914-9184 | | | | | |Selection Text [...] | | | Fingerstick | performed at [facility];[address] | | LAB | | | | [address];[place] | | | | | | [address] | | | | + + + [...] | | | Patient | performed at [facility];[address] | | LAB | | | | [address];[place], [place] | | | | | | [address] | | | | + + + + + + + + | Specimen | + + | Blood specimen | | (specimen) | + + + +---------+ + + | Performing | Address | City/State/Zipcode | Phone Number | | Organization | | | | + +---------+ + + | EXTERNAL LAB | | | | + +---------+ + + Protime INR (10/16/2017 4:16 AM PDT) + + + [...] | performed at [facility] | | | | | | [address];[place], [place] | | | | | | [address] | | | | + + + [...] | performed at [facility], [address] | K/uL | LAB | | | | Alexandrea Jenkins, | | | | | | [place] [address] | | | | + + + [...] | | | | | | MDRD IDCO traceable | | | | | | equation.Testing | | | | | | performed at [facility], [address] | | | | | | [facility], | | | | | | [place] [address] | | | | + + + [...] | | | Fingerstick | performed at [facility];[address] | | LAB | | | | Breanna Jenkins;[place] | | | | | | [address] | | | | + + + [...] | | | Fingerstick | performed at [facility];[address] | | LAB | | | | [address] Jenkins;[place], [place] | | | | | | [address] | | | | + + + [...] | | | Patient | performed at [facility];[address] | | LAB | | | | Breanna Jenkins;[place] | | | | | | [address] | | | | + + + [...] | | | Fingerstick | performed at [facility];[address] | | LAB | | | | [address] Jenkins;[place], [place] | | | | | | [address] | | | | + + + [...] | | | Patient | performed at [facility];[address] | | LAB | | | | Breanna Jenkins;[place] | | | | | | [address] | | | | + + + [...] - 1.030 | EXTERNAL | | | [place], | | | LAB | | | [...] | | | Urine | performed at [facility];[address] | | LAB | | | | Breanna Jenkins;[place] | | | | | | [address] | | | | + + + [...] | | | Fingerstick | performed at [facility];[address] | | LAB | | | | Breanna Jenkins;[place] | | | | | | [address] | | | | + + + [...] | | | Patient | performed at [facility];[address] | | LAB | | | | [address];[place], [place] | | | | | | [address] | | | | + + + [...] [facility];[address] | | | | | | [address];[place], [place] | | | | | | [address] | | | | + + + [...] | performed at [facility], [address] | [address] | LAB | | | | [address], | | | | | | [place] [address] | | | | + + + [...] | EXTERNAL | | | A1c | [place] [employer] | | LAB | | | [...] | performed at [facility], [address] | | | | | | [facility], | | | | | | [place] [address] | | | | + + + [...] | | | | | | MDRD IDCO traceable | | | | | | equation.Testing | | | | | | performed at [facility], [address] | | | | | | [facility], | | | | | | [place] [address] | | | | + + + [...] | | | Fingerstick | performed at [facility];[address] | | LAB | | | | [address];[place] | | | | | | [address] | | | | + + + [...] | | | Patient | performed at [facility];[address] | | LAB | | | | Breanna Jenkins;[place] | | | | | | [address] | | | | + + + [...] [facility];[address] | | | | | | [facility];[place], [place] | | | | | | [address] | | | | + + + [...] | LAB | | | | [address];[place], [place] | | | | | | [address] | | | | + + + [...] | | | Fingerstick | performed at [facility];[address] | | LAB | | | | [address];[place] | | | | | | [address] | | | | + + + [...] Ramos Conversion - 09/19/2018 1:06 AM PDT HISTORY: [...] | performed at [facility];[address] | | | | | | Breanna Jenkins;[place] | | | | | | [address] | | | | + + + [...] | | | Patient | performed at [facility];[address] | | LAB | | | | [address] Jenkins;[place], [place] | | | | | | [address] | | | | + + + [...] | performed at [facility];8 | | LAB | | | | Breanna Jenkins;[place], [place] | | | | | | [address] | | | | + + + [...] | | | Fingerstick | performed at [facility];[address] | | LAB | | | | Breanna Jenkins;[place] | | | | | | [address] | | | | + + + [...] | | Mick: 0.47 m/s TV Dec Cache: 2.56 m/s2 TV Dec Time: 234.96 | | | ms TV E Mick: 0.60 m/s TV E/A Ratio: 1.27 Clinical Research Management Associate: MW | | | Authenticated by: Vel Ingram [...] (A-L): 36.64 ml/m2LAAs A2C: 23.48 | | er1JMJJN A-L A2C: 71.59 mlLALs A2C: 6.54 cmLAAs A4C: 22.52 vl4FUAUL A-L A4C: | | 75.20 mlLALs A4C: 5.72 cmTAPSE: 2.33 cmHR: 62.00 BPMAV maxP.57 mmHgAV | | meanP.25 mmHgAV Vmax: 2.37 m/Jason Vmean: 1.75 m/Jason VTI: 48.49 cmAVA Vmax: | | 3.09 cm2AVA (VTI): 3.12 np5BMJG Vmax: 0.00 cm2/m2AVAI (VTI): 0.00 cm2/m2LVCI | | Dopp: 4.27 l/oijm9SJVX Dopp: 9.14 l/minHR: 60.40 BPMLVOT maxP.48 mmHgLVOT [...] A Mick: | | 0.47 m/sTV Dec Cache: 2.56 m/s2TV Dec Time: 234.96 msTV E Mick: 0.60 m/sTV E/A | | Ratio: 1.27 Clinical Research Management Associate: MWAuthenticated by: Vel Walker Date/Time: 10-14-2017 | | [...] |MV DecT: 283.92 ms | |MV E Mikc: 0.78 m/s | |MV E/A Ratio: 0.88 [...] A Mick: 0.47 m/s | |TV Dec Cache: 2.56 m/s2 | |TV Dec Time: 234.96 ms | |TV E Mick: 0.60 m/s | |TV E/A Ratio: 1.27 | | | |Clinical Research Management Associate: MW | |Authenticated by: Vel Ingram | [...] | performed at [facility] | | | | | | [address];[place], [place] | | | | | | [address] [...] | | | Patient | performed at [facility];[address] | | LAB | | | | [address];[place] | | | | | | [address] | | | | + + + [...] | LAB | | | | [address] [facility];[place], [place] | | | | | | [address] | | | | + + + [...] | performed at [facility];[address] | | | | | | [address] [facility];[place], [place] | | | | | | [address] | | | | + + + [...] | | | | | [place] [address] | | | | + + + [...] | performed at [facility], [address] | | LAB | | | | [address], | | | | | | [place] [address] | | | | + + + [...] | performed at [facility], [address] | | LAB | | | | Alexandrea Jenkins, | | | | | | [place] [address] | | | | + + + [...] | performed at [facility], [address] | | | | | | Alexandrea Jenkins, | | | | | | [place] [address] | | | | + + + [...] | | | Fingerstick | performed at [facility];[address] | | LAB | | | | Breanna Jenkins;[place] | | | | | | [address] | | | | + + + [...] | | | | | d by [facility]. 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 As only | | | | | [...] JThromb | | | | | | [id number];4:295-306.Refer | | | | | | ence [...] JThromb | | | | | | [id number];4:295-306.Refer | | | | | | ence [...] + + + + ----+ | [place] [address], | (See Below)Comment: G-G | | EXTERNAL | | | Result | (Normal-Normal)No | | LAB | | | | prothrombin [id number] | | | | | | mutation present. | | | | | |No prothrombin [id number] mutation present. | | | | | [...] | | | | | | nucleotide [address] using | | | | | | [...] | | | | | | prothrombin [id number] | | | | | | mutation [...] | | | | | | theprothrombin [id number] | | | | | | mutation and does not | | | | | | detect othergenetic | | | | | | abnormalities.This test | | | | | | was developed and its | | | | | | performance | | | | | | characteristicsdetermine | | | | | | d by [facility]. It has not | | | | | | been cleared or | | | | | | approvedby the Food and | | | | | | Drug | | | | | | Administration.Reference | | | | | | s: Michele K, et al. Br J | | | | | | of Haem. | | | | | | 1996;98:907.Raven HARRIS, | | | | | | et al. Br J of Haem. | | | | | | 1996;98:353. | | | | | | Eduardo-LaFdesireiere and | | | | | | McGlennen Mol.Diagn. | | | | | | 2000;6(3):201.Emmerich | | | | | | J, et al. Thromb | | | | | | [place]. | | | | | | 2000;86:809-16.Margaglio | | | | | | carmen M, et al. Thromb | | | | | | [place]. | | | | | | 1998;82:1583.Testing | | | | | | performed by [facility] | | | | | | [facility],[address] | | | | | [address] [place], | | | | | | [place] [id number] | | | | + + + [...] | | | Fingerstick | performed at [facility];[address] | | LAB | | | | [address];[place], [place] | | | | | | [address] | | | | + + + [...] Conversion - 09/19/2018 1:06 AM PDT NORAH Emre GRXR CHEST 2 VIEW FRONTAL | | [...] | | | | | ONLY, -COMPUTER (571), | | | | | | newspaper photo editor [place] | | | | | | (124) on 10/14/2017 | | | | | | 12:17:22 PM | | | | + + + + + + + + | Specimen | + + | | + + + + + | Narrative | Performed At | + + + | Historically converted procedure from [facility] environment | EXTERNAL LAB | + [...] | performed at [facility];[address] | | | | | | Breanna Jenkins;[place] | | | | | | [address] | | | | + + + [...] | LAB | | | | Breanna Jenkins;[place], [place] | | | | | | [address] | | | | + + + [...]
--- OUTSIDE RECORDS SUMMARY | ~2019-10-12 | XMS | Encounter Summary ---
Demographics + + + | Address | [address] | | | [place] [address] | + + + | Home Phone [...] + | Sammi Kohler | ECON | [place] [address] | | + + + + + Care Team Providers + +------+ + | Care Automatic Dry Starch Operator Name | Role | Phone | + +------+ + PCP | Unavailable | + +------+ + Encounter Details +--------+ + + + + | Date | Type | Department | Care Team | Description | +--------+ + + + + | 08/11/ | Hospital | [facility] | Elizabeth Ochoa, | Cholelithiasis; | | 2013 - | Encounter | [facility] [address] | [address] | Diabetes mellitus | | | | [address] | [place] [address] | type II; Fall at | | 08/14/ | | [place], [place] | [phone] | home; HTN | | 2013 | | [phone] | | (hypertension); WARD | | | | [phone] | | (obstructive sleep | | | [...] Date of Service: 08/14/12 1024 Status: Signed Veterinarian Small Animal: Josefa Ramon MD (Physician) [facility] Service: Hospitalist Discharge Summary Date of [...] >100.4 Follow up: Jerrell Diego DO [address] [address] [address] Schedule an appointment as soon as possible for a visit in 2 weeks Valeria Cortez MD [address] [facility] [address] Schedule an appointment as soon as possible [...] disc harge summary. Josefa Ramon MD 08/14/2012 documentchad light in this encounter Medications at Time [...] Date of Service: 08/14/12 110 Status: Signed Veterinarian Small Animal: Charmaine Mosley RN (Registered Nurse) Pt discharged home to [facility]. He has all personal belongings, discharge [...] Filed: 08/14/12 1032 Date of Service: 08/14/12 103 Status: Signed Veterinarian Small Animal: Babar Howard RRT (Registered Respiratory Therapist) [facility] Department of Respiratory Intermediate Oxygen Evaluation (Evaluation is valid for 48 [...] Author: QUINN Bansal Service: (none) Author Type: Certified Surgical First Assistant Filed: 08/14/12911 Date of Service: 08/14/12911 Status: Signed Veterinarian Small Animal: QUINN Bansal (Certified Surgical First Assistant) CM faxed pt's updated info to [facility] and will continue to follow. CM will arrange transpor tation upon discharge. Pt had no other resource concerns at this time. Discharge Plan: [facility] SPRINGER ylene Campo DO - 08/14/2012 9:10 AM PDTFormatting of this note might be different from guillermina bonilla original. Progress Notes by Mylene Key DO at 08/14/12909 Author: Mylene Key DO Service: General Surgery Author Type: Physician Filed: 08/14/12910 Date of Service: 08/14/12909 Status: Signed Veterinarian Small Animal: Mylene Key DO (Physician) HIDA scan normal. No need for surgery, even as an outpatient. No FU with me needed. MYLENE KEY Valeria Carrillo MD - 08/13/2012 6:36 PM PDT Progress Notes by Valeria Cortez MD at 08/13/121835 Author: Valeria Cortez MD Service: (none) Author Type: Physician Filed: 08/13/121900 Date of Service: 08/13/121835 Status: Addendum Veterinarian Small Animal: Valeria Cortez MD (Physician) Related Notes: Original Note by Valeria Cortez MD (Physician) filed at 08/13/121858 [facility] Service: Pulmonology Progress Note Hospital Day: LOS: [...] is in good spirits talking to his Comanche brother over the phone. He is l [...] an outpatient for comparison. Pneumovax ordered. [facility] [address] Code Status: Full Code VALERIA CORTEZ MD 08/13/2012 6:59 PM unnMylene womack DO - 08/13/2012 1:21 PM PDT Progress Notes by Mylene Key DO at 08/13/12 1321 Author: Mylene Key DO Service: General Surgery Author Type: Physician Filed: 08/13/12 1322 Date of Service: 08/13/121320 Status: Signed Veterinarian Small Animal: Mylene Key DO (Physician) [facility] Service: General Surgery Progress Note Hospital [...] - - - - 94 % - 08/12/122126 - - - 80 18 93 % [...] Physician Filed: 08/13/12 1246 Date of Service: 08/13/121231 Status: Signed Veterinarian Small Animal: Erasto Bautista DO (Physician) [facility] Service: Hospitalist Progress Note Hospital Day: [...] C) Oral 79 18 94 % - 08/12/120 174/79 mmHg - - - - 94 % - 08/12/122126 - - - 80 18 93 % - 08/12/120 200/92 mmHg - - - - - [...] (none) Author Type: Occupational Therapist Filed: 08/13/12 9560 Date of Service: 08/13/12 1058 Status: Signed Veterinarian Small Animal: TORY Chavira (Occupational Therapist) 08/13/12 1058 Precautions [...] quit wearing it. Prior Function Level of [place] Independent with ADLs;Independent with IADLs;Independent with functi onal mobility Lives With Alone Receives Help From Community agency ADL Assistance Independent Home ADL's Other (comment) (needs assistance with IADLs) Employment Retired for age Leisure Hobbies-yes (Comment) (arts and craWistia, [place], blackInventys Thermal Technologiesck,) Comments pt. uses [employer] for transportation. Receives assist for laundry, med manageme nt from staff ADL Additional Comments Provided pt. with AE handout and recommendations to increase safety and independence during ADLs. Pt. stated understanding. Pt. also has [facility] staff to assist in ADL s. Pt. [...] Date of Service: 08/13/12 1048 Status: Signed Veterinarian Small Animal: Barbara Dempsey PT (Physical Therapist) 08/13/12 1024 PT Last Visit PT Received On 08/13/12 Requires PT Follow Up No PT Eval/Reassessment Date 08/13/12 Precautions Other Precautions fall precautions Other Comments Comments 56 y/o male admitted for RUQ pain. Pt states pain still occurs, but is improved. H e states he just moved into [facility] about 6 weeks ago, after living by himself. He was having tr ouble caring for himself. 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 Pt does get SOB ea sily & [...] Date of Service: 08/13/12 1046 Status: Signed Veterinarian Small Animal: Barbara Dempsey PT (Physical Therapist) 08/13/12 1024 [...] increase SOB occurs. Prior Function Level of [place] Independent with functional mobility;Independent with ADLs;Modified independent [...] (none) Author Type: Registered Nurse Filed: 08/12/12 1258 Date of Service: 08/12/12 125 Status: Signed Veterinarian Small Animal: Devin Liriano RN (Registered Nurse) Dr. Bautista [...] note might be different from the bobbi gicarmela. Progress Notes by Erasto Bautista DO at 08/12/12 1211 Author: Erasto Bautista DO Service: (none) Author Type: Physician Filed: 08/12/12 1246 Date of Service: 08/12/12 1211 Status: Signed Veterinarian Small Animal: Erasto Bautista DO (Physician) [facility] Service: Hospitalist Progress Note Hospital Day: [...] Dr Key is consulted. He will evaluate cleopatra prabhakar for possible surgery but we will pay [...] 08/11/122314 Date of Service: 08/11/122314 Status: Signed Veterinarian Small Animal: Pepe Xie RPH (Pharmacist) Note ccl 95.4ml/min meds reviewed Pharmacy will follow [facility] 2315 docume nted in this encounter H&P Notes Elizabeth Ochoa MD - 08/11/2012 10:09 PM PDTFormatting of this note might be different fro m the original. H&P by Elizabeth Ochoa MD at 08/11/122208 Author: Elizabeth Ochoa MD Service: (none) Author Type: Physician Filed: 08/12/121906 Date of Service: 08/11/122208 Status: Signed Veterinarian Small Animal: Elizabeth Ochoa MD (Physician) [facility] Service: Hospitalist Admission History & Physical [...] has [facility] Dr. Key [facility] to [facility] this patient with [...] history of pneumonia. CARDIOVASCULAR: No history of MD, congestive heart failure, syncope, arrhythmias. Denies le [...] Narrative Lives in fci, IADL, full code History Smoking status Never [...] PTX, or pleural effusion. Ultrasound abdomen, gallbladder [[id number]] Status: Final result Study Result EXAM: LIMITED [...] NM Myocardial Perfusion SPECT (Stress and Rest) [[id number]] Status: Final result Study Result HISTORY: 55-year-old [...] normal sinus rhythm, will place him on ekg monitor tech. 2. Moderate obesity with obstructive sleep apnea [...] Wound/Ostomy Care Author Type: Registered Nurse Filed: 08/13/122 Date of Service: 08/13/121724 Status: Signed Veterinarian Small Animal: Evette Walters RN (Registered Nurse) Consult Orders: 1. Wound Care Evaluation and Treat [[id number]] ordered by Erasto Bautista DO at 08/12/12 0132 [facility] Service: Wound Care Consult Note Hospital [...] Consults by Mylene Key DO at 08/12/12 175 Author: Mylene Key DO Service: General Surgery Author Type: Physician Filed: 08/19/12 1045 Date of Service: 08/12/121755 Status: Signed Veterinarian Small Animal: Mylene Key DO (Physician) Related Notes: Original Note by Mylene Key DO (Physician) filed at 08/12/12 1800 Consult Orders: 1. Consult to General Surgery [[id number]] ordered by Elizabeth Ochoa MD at 08/11/12 9898 [facility] Service: General Surgery Consult Date of Admission: 08/11/2012 History Obtained From: patient CHIEF COMPLAINT: Abdominal pain Referring provider: Dr. Gabriela MD HISTORY OF PRESENT ILLNESS This is a pleasant 56-year-old male who presents to [facility] with chi ef complaint of right upper [...] Narrative Lives in fci, IADL, full code PHYSICAL EXAM Vital Signs: [...] - 66 24 94 % - - 08/11/12 2014 193/86 mmHg 98.2 F (36.8 C) - [...] acute lung disease identified. Ultrasound abdomen, gallbladder [[id number]] Resulted:08/11/122051 Order Status:Completed Updated:08/11/122054 Narrative: EXAM: LIMITED [...] Status: Full Code Primary Care Physician: JERRELL KEY DO 08/12/2012 u, Valeria Anthony MD - 08/12/2012 2:29 PM PDT Consult* by Valeria Cortez MD at 08/12/12 7971 Author: Valeria Cortez MD Service: (none) Author Type: Physician Filed: 08/12/12 4258 Date of Service: 08/12/121428 Status: Signed Veterinarian Small Animal: Valeria Cortez MD (Physician) [facility] Service: Pulmonology Initial Consult Note Date of Admission: 08/11/2012 Reason for Consultation: Respiratory management Requesting Physician: Hospitalist History Obtained From: patient CHIEF COMPLAINT: Abdominal pain HISTORY OF PRESENT ILLNESS The patient is a 56 y.o. male who resides in [facility] on [address] [address]. He has seen Dr. Benson in [...] is replac ed with 4Lpm O2 by MO, and he is maintaining oxygen saturation at [...] Narrative Lives in fci, IADL, full code PHYSICAL EXAM Vital Signs: [...] 08/11/121853 Date of Service: 08/11/121853 Status: Signed Veterinarian Small Animal: Sarina Sloan RN (Registered Nurse) Patient returned from Ultrasound. Sarina Sloan RN 08/11/121853 onver ivana Transaction, Provider Unknown - 08/11/2012 6:44 PM PDT ED Notes by Maribeth Lew RN at 08/11/12 7350 Author: Maribeth Lew RN Service: (none) Author Type: Registered Nurse Filed: 08/11/121843 Date of Service: 08/11/121843 Status: Signed Veterinarian Small Animal: Maribeth Lew RN (Registered Nurse) Report given to Sarina Lew RN 08/11/121843 onver ivana Transaction, Provider Unknown - 08/11/2012 6:43 PM PDT ED Notes by Maribeth Lew RN at 08/11/121842 Author: Maribeth Lew RN Service: (none) Author Type: Registered Nurse Filed: 08/11/121842 Date of Service: 08/11/121842 Status: Signed Veterinarian Small Animal: Maribeth Lew RN (Registered Nurse) Remains in SONO Maribeth Lew RN 08/11/121842 onver ivana Transaction, Provider Unknown - 08/11/2012 5:20 PM PDT ED Notes by Maribeth Lew RN at 08/11/121719 Author: Maribeth Lew RN Service: (none) Author Type: Registered Nurse Filed: 08/11/121719 Date of Service: 08/11/121719 Status: Signed Veterinarian Small Animal: Maribeth Lew RN (Registered Nurse) MD at bedside. Maribeth Lew RN 08/11/121719 hitak Yesica llanos DO - 08/11/2012 5:09 PM PDTFormatting of this note might be different from the o riginal. ED Provider Notes by Yesica Flowers DO at 08/11/121708 Author: Yesica Flowers DO Service: (none) Author Type: Physician Filed: 08/12/12 0425 Date of Service: 08/11/121708 Status: Signed Veterinarian Small Animal: Yesica Flowers DO (Physician) [facility] Department of Emergency Medicine 08/11/2012 History of Present Illness Patient Identification Norah Gr is a 56 y.o. male. Patient information was obtained from patient. History/Exam limitations: none. Patient presented to the Emergency Department by: [facility] Chief Complaint Chief Complaint Patient [...] Ref Range Date/Time POC Arterial Blood Gas [[id number]] (Abnormal) Collected:08/11/122233 Order Status:Completed Updated:08/11/122237 POC FIO2 [...] 95 - 98 % POC clinitek 10 [[id number]] (Abnormal) Collected:08/11/122048 Order Status:Completed Updated:08/11/122051 Color, UA [...] WBC, UA NEGATIVE NEGATIVE Comprehensive metabolic panel [[id number]] (Abnormal) Collected:08/11/121699 Order Status:Completed Updated:08/11/121753 Specimen Information:Blood SODIUM 141 [...] 65 U/L EGFR >60 >60 mL/min/1.73m2 Lipase [[id number]] Collected:08/11/121699 Order Status:Completed Updated:08/11/121753 Specimen Information:Blood LIPASE 121 73 - 393 U/L CBC with differential [[id number]] (Abnormal) Collected:08/11/121699 Order Status:Completed Updated:08/11/121732 Specimen Information:Blood [...] ED Interpretation Documented by Caty Castaneda (08/11/122221, [facility] Emergency Department, Emergency Medicine) Poor [...] me. I ag qian with its contents. DO Yesica Driscoll DO 08/12/12 0425 onversion Transacti on, Provider Unknown - 08/11/2012 4:49 PM PDTFormatting of this note might be different fro m the original. ED Notes by Maribeth Lew RN at 08/11/121648 Author: Maribeth Lew RN Service: (none) Author Type: Registered Nurse Filed: 08/11/121650 Date of Service: 08/11/121648 Status: Signed Veterinarian Small Animal: Maribeth Lew RN (Registered Nurse) Patient states he lives independently at [facility], he states he got off [...] 08/11/121639 Date of Service: 08/11/121639 Status: Signed Veterinarian Small Animal: Maribeth Lew RN (Registered Nurse) Bed:09
Expected date:08/11/12
Expected time:
Means of arrival:
Comments:< BR> onver ivana Transaction, Provider Unknown - 08/11/2012 4:28 PM PDT ED Notes by Itzel Huggins RN at 08/11/12 Author: Itzel Huggins RN Service: (none) Author Type: Registered Nurse Filed: 08/11/121628 Date of Service: 08/11/121627 Status: Signed Veterinarian Small Animal: Itzel Huggins RN (Registered Nurse) Pt 56 year old male, fell at [facility] this am,c/o right abdominal pain Itzel [...] | | | | | [address] [place], | | | | | | [place] [address] | | | | | | [phone] | | | | | | | [...] + + + | NORAH GR CT HEPATOBILIARY SCAN WITH CCK 08/13/2012 1:32 PM [...] Conversion - 09/28/2018 3:24 PM PDT NORAH M JONESNM HEPATOBILIARY SCAN WITH | | CCK08/13/2012 1:32 [...] + + | Historically converted procedure from [facility] Epic environment | EXTERNAL LAB [...] | Procedure Note | + ------+ | Joaquin Ramos Conversion - 09/28/2018 3:24 PM SHALONDA AMARAL CHEST 2 VIEW FRONTAL | | [...] (500), | | | | | | design editor SANYA ALDANA (8) | | | | | | on 08/12/2012 5:18:31 AM | | | | + + + + + + + + | Specimen | + + | | + + + + + | Narrative | Performed At | + + + | Historically converted procedure from [facility] environment | EXTERNAL [...]
--- OUTSIDE RECORDS SUMMARY | ~2019-10-12 | XMS | Encounter Summary ---
Demographics + + + | Address | [address] | | | [place] [address] | + + + | Home Phone [...] | Sammi Kohler | ECON | [place] [address] | | + + + + + Care Team Providers + +------+ + | Care Horseradish Grinder Name | Role | Phone | + +------+ + | Mireya Pack NP | PCP | | + +------+ + Reason for Visit + +--------+ + | Reason | Onset | Comments | | | Date | | + +--------+ + | TCM - Hosp FU | 05/30/ | | | | 2019 | | + +--------+ + Encounter Details +--------+ + + + + | Date | Type | Department | Care Team | Description | +--------+ + + + + | 05/30/ | Telephone | [facility] | Sanjuanita Rodriguez RN | TCM - Hosp FU | | 2019 | | [employer] | | | | | | MANAG[address] | | | | | [address] | | | | | | [place] | | | | | | [address] | | | | | | [phone] | | | +--------+ + + + [...] Telephone Encounter - Sanjuanita Rodriguez RN - 05/31/2019 9:51 AM PDTFormatting of this note m ight be different from the original. SITUATION Transitional Care Management for follow-up on discharge from: [facility]-Way Facility Eligible for TCM Billing LOS [phone]/[id number]? yes - Eligible for TCM billing through 06.12.2019 Patient questions/concerns needing provider review: None at this time BACKGROUND Admission Date: 05/15/19 Discharge Date: 05/18/19 Discharge Disposition: Half-Way Facility - SNF Principle Discharge Diagnosis: Abnormality of gait due to impairment of balance Dizziness ASSESSMENT General: How are you doing since you returned home?: Patient states, "Things are going pretty good" Did you receive discharge instructions? yes Do you have any questions about the instructions? no Does patient have advanced directive? No Patient Reported Review of Symptoms: (documentation by exception) no symptoms. Patient robert es any concerns or symptoms at this time. Diet: Diet restrictions: Diabetic Difficulties managing your dietary restrictions? yes - patient has caregivers that get him food as he wants Medication Literacy: Were you able to fruit picker your medications after discharge? Yes Reviewed all medications/supplements and any changes? No: Patient medications come bubble w rapped from Rx pharmacy, he has limited knowledge about what he takes and why. Do you manage your own medications? No - Who helps you? Rx pharmacy bubble wraps medication s. Patient understands the purpose of the medications: No: Somewhat (for insulin). Difficult t o determine, medications come bubble wrapped from pharmacy and patient takes very little int erest in what he is taking and why. Patient understands when to take the medications: Yes What questions do you have questions regarding your medications? None Medication Management Interventions: Reviewed insulin instructions with patient. Patient was advised to please bring in all medications to the visit: yes Discharge needs: Has equipment: walker, cane. and Discharged home with home health. [facility] for physical therapy and long-term. Receives help from: home care agency RECOMMENDATION Disposition: Safe to continue in home setting with the support of caregivers. Future Appointments Date Time Provider Department Center 06/03/2019 1:50 PM MD TATUM Santana [facility] Patient states he was unaware of this appointment and he was an no show. Does not wish assi st to reschedule as he states his knee is doing a lot better. Had a telephone follow up appo intment with primary care provider 4.28 with no changes made to plan of care. Access to Technology for Zoom Virtual Visit: Does the patient have access to technology? None Does the patients device have internet access via wifi or adequate cellular data plan?: no Does facility patient resides in have access to technology?: NA Any other Specialists, Out-patient Therapy or Diagnostics/Labs: NA Patient Education: NA Triage protocol used?: no Call Back Instructions: Will place a final call 06.18.2019, patient declined taking down my contact information as bran bonilla states he has nothing to write with right now. Informant verbalized understanding. No learning barriers noted. [...] | | | | | | [place] [address] | | | | | | [phone] | | | | | | | | +--------+ + + + + documented as of this encounter Visit Diagnoses Not on filedocumented in this encounter
--- OUTSIDE RECORDS SUMMARY | ~2019-10-12 | XMS | Encounter Summary ---
Demographics + + + | Address | [address] | | | [place] [address] | + + + | Home Phone [...] Sammi Kohler | ECON | [place] [address] | | + + + + + Care Team Providers + +------+ + | Care Social Worker Psychiatric Name | Role | Phone | + +------+ + | Mireya Pack NP | PCP | | + +------+ + Reason for Visit + + + | Reason | Comments | + + + | Multiple Falls | | + + + | Palpitations | | + + + Encounter Details +--------+ + + + + | Date | Type | Department | Care Team | Description | +--------+ + + + + | 12/01/ | Emergency | [facility] | CharlotteReynaldo benton | Recurrent syncope | | 2019 | | [facility]ENTER | DO [address] | (Primary Dx); | | | | EMERGENCY CENTER | [address] | Uncontrolled | | | | [address] | [place], [place] | hypertension | | | | [place], [place] | [address] | | | | | [address] | [phone] | | | | | [phone] | | | +--------+ + + + [...] + + + | Blood Pressure | 168/80 | 12/01/2018 1:30 PM | | | | | PDT | | + + + + + | Pulse | 63 | 12/01/2018 2:55 PM | | | | | PDT | | + + + + + | Temperature | 37.2 C (98.9 F) | 12/01/2018 8:14 AM | | | | | PDT | | + + + + + | Respiratory Rate | 21 | 12/01/2018 2:55 PM | | | | | PDT | | + + + + + | Oxygen Saturation | 97% | 12/01/2018 2:55 PM | | | | | PDT | | + + + + + | Inhaled Oxygen | - | - | | | Concentration | | | | + + + + + | Weight | 95.7 kg (210 lb 15.7 | 12/01/2018 8:14 AM | | | | oz) | PDT | | + + + + + | Height | - | - | | + + + + + | Body Mass Index | 29.43 | 11/15/2018 10:53 AM | | | [...] following attachments cannot be sent through Care Everywhere.Syncope, Treati ng: Prevention (French)documented in this encounter Medications at Time of [...] + + +---------+ + + | Low [facility]. MISC | For blood sugar | 200 [...] as of this encounter ED Notes Reynaldo Prather DO - 12/01/2018 9:17 AM PDTFormatting of this note might be diff erent from the original. [facility] Department of Emergency Medicine Procedures No flowsheet data found. 9:28 History of Present Illness Patient Identification Norah Gr is a 62 y.o. male. Patient information was obtained from patient. History/Exam limitations: none. Patient presented to the Emergency Department by: Car Chief Complaint Chief Complaint Patient presents with Multiple Falls Palpitations The patient presents to ED with complaints of palpitations. Onset of symptoms was last nigh t, with a constant course since that time. The symptoms are described to be of moderate to s ever severity. The patient describes the quality and location of the symptoms as the followi ng: pounding heart rate causing chest pain. He reports Hx of AFIB and believes it could be " acting up". He adds that he has been passing out lately with at least 3 episodes within the last 24 hours. He reports taking coumadin blood thinner for his Afib. nothing makes the symp toms/pain better, and nothing makes symptoms/pain worse. Pt reports pain/symptoms do not rad iate. Patient denies nausea, vomiting, or any other symptoms at this time. Care prior to arr ival consisted of none. Denies any injury. PCP: Mireya Pack NP Past Medical History: Diagnosis Date Acute pulmonary embolism (HCC) 10/14/2017 Anxiety ARF (acute renal failure) (HCC) 03/02/2013 Atrial fibrillation (HCC) Basal cell carcinoma 09/26/2012 arm and back COPD (chronic obstructive pulmonary disease) ([facility]) 03/02/2013 hypoxemia on 2 lts nc Depression Development delay Diabetes mellitus type II DVT (deep venous thrombosis) ([facility]) 03/29/2018 Facial droop 07/08/2013 GIB (gastrointestinal bleeding) 03/02/[address] Nur, rectal ulcers, nodule of GE junction Hypercholesterolemia 07/08/2013 Hyperlipidemia 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 MAIN OR; Service: General; Laterality: N/A; COLONOSCOPY COLONOSCOPY 03/04/2013 Procedure: COLONOSCOPY; Surgeon: Howie Gibson MD; Location: [facility] ENDOSCOPY; Service: Gastroen terology; Laterality: N/A; [...] FROZEN SECTION; Surgeon: Sy murcia MD; Location: [facility] MAIN OR; Service: Plastics; Laterality: Left; forearm SKIN BIOPSY SKIN CANCER EXCISION Left 10/10/2012 Procedure: EXCISION - SKIN CANCER; Surgeon: Sy Fierro MD; Location: [facility] MAIN OR; Service: Plastics; Laterality: Left; upper arm and upper back w/frozen section UPPER GASTROINTESTINAL ENDOSCOPY UPPER GASTROINTESTINAL ENDOSCOPY 03/03/2013 Procedure: ESOPHAGOGASTRODUODENOSCOPY; Surgeon: Howie Gibson MD; Location: [facility] ENDOSCOPY; Se rvice: Gastroenterology; Laterality: N/A; [...] For blood sugar testing 4 times daily Mireya Pack NP hydrALAZINE (APRESOLINE) 25 mg [...] Lives alone x 1 wk, moved from [facility], , 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 2 falls in the last 6 months. Family History Problem Relation Age of Onset Heart disease Father Heart disease Sister Diabetes, NIDDM Sister Other (see comment) Brother Heart Problems Review of Systems Constitutional: Negative for fever Eyes: Negative for vision changes Nose: Negative for congestion Throat: Negative for sore throat CV/Resp: Negative for chest pain, [id number], cough Positive for palpitations, chest pain GI: Negative for abdominal pain, nausea, vomiting, or diarrhea : Negative for urinary problems Musculoskeletal: Negative for joint pain Skin: Negative for rash Neuro/Psych: Negative for headache Positive for multiple falls, LOC Endo/heme/Lymph: Negative for easy bruising All other systems reviewed and negative except as noted. Physical Exam Temp: 37.2 C (98.9 F) Pulse: 85 Resp: 16 BP: (!) 200/91 SpO2: 97 % Vital signs interpretation: elevated BP Pulse Oximetry interpretation: Normal 97% General: Alert, in no apparent distress Eyes: Normal inspection, PERRL, EOMI ENT: MMM Neck: Normal inspection Cardiovascular: Rate and rhythm normal Respiratory: Breath sounds normal bilaterally Abdomen: Soft, non-tender, non-distended No guarding or rebound Genitourinary: Deferred Rectal exam: Deferred Back: Tenderness over the cervical and upper thoracic spine Extremities: No edema Distal pulses intact Skin: Color normal Warm and dry No rash Neuro: Alert, no AMS No gross motor/sensory deficits CN 2-12 intact Medical Decision Making and Emergency Department Course Patient presents to ED with complaints of palpitations. As the pt reports he is unsure if he hit his head and is on chronic anticoagulation I will obtain a CT head. 09:55 CBC shows elevated WBC at 12.55, elevated neutrophils at 8.39, elevated monoabs at 1. 07. CMP shows slightly elevated GLU at 192 10:02 XR Thoracic spine: Findings of DISH throughout the thoracic spine. 10:10 XR Chest: negative 11:29 CT Head Cervical Spine: negative 11:53 UA shows: elevated PRO at 30. DOA negative. I recommended admission due to the recurrent syncope. The patient is agreeable. I discussed the case with Dr. Vega who will see the patient. After evaluating the patient Dr. Vega is significantly concerned that the patient is her e for secondary gain. She does not feel the patient needs to be admitted. Apparently the p atient admitted that he exaggerated his story so that he could be admitted so he does not kelley ve to use his own money for food. 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 He is aware of the patient and agrees that the patient does go between hospital and hospital attempting to be admitted. Dr. Vega reports that she does not want to admit this patient. Eduardo will ar range for close follow-up with his PCP as well as will attempt to have increased in-home car e hours. 14:58. Patient reevaluation. Patient is stable and feeling better at this time. Work-up kelley s been fairly benign here and the patient is eating and well-appearing. I discussed all ED results and my clinical impression with the patient. Patient is ready for discharge. I advis ed patient to follow up with a PCP and we discussed the emergent signs and symptoms that wou ld necessitate a return to ED. All questions and concerns addressed. Records Reviewed Old medical records. Nursing notes. Prior unrelated ED visits Laboratory Evaluation Results Procedure Component Value Ref Range Date/Time Drugs Of ABuse Screen, Urine (H) [[id number]] Collected: 12/01/181108 Order Status: Completed Specimen: Urine, Clean Catch Updated: 12/01/18 1200 Amp/Methamphetamine, Screen, Urine NEGATIVE NEG Barbiturates Screen, Urine NEGATIVE NEG Benzodiazepines Screen, Urine NEGATIVE NEG Cocaine Metabolites, Ur NEGATIVE NEG Methadone Screen, Urine NEGATIVE NEG Opiates Screen, Urine NEGATIVE NEG Phencyclidine Screen, Urine NEGATIVE NEG Tetrahydrocannabinol(THC) NEGATIVE NEG Urinalysis With Microscopic [[id number]] (Abnormal) Collected: 12/01/181108 Order Status: Completed Specimen: Urine, Clean Catch Updated: 12/01/18 1154 Color, UA YELLOW Clarity, UA CLEAR Specific [place], Urine 1.023 1.002 - 1.030 Leukocyte esterase, UA NEGATIVE NEG Nitrite, UA NEGATIVE NEG Urobilinogen, Ur NORMAL <1.1 mg/dL Protein, Urine (mg/dL) 30 NEG mg/dL pH, Urine 5.0 5.0 - 8.0 Blood, UA NEGATIVE NEG Ketones, UA NEGATIVE NEG mg/dL Bilirubin, UA NEGATIVE NEG Glucose, Ur 50 NEG mg/dL WBC UA 3-5 0 - 5 /hpf RBC UA 0-2 0 - 2 /hpf SQUAMOUS EPITHELIAL UA 6-10 /lpf BACTERIA UA 1+ NONE MUCUS UA 1+ Ethanol [[id number]] Collected: 12/01/18933 Order Status: Completed Specimen: Blood Updated: 12/01/18 1009 ALCOHOL, SERUM/PLASMA <10 <10 mg/dL Troponin I [[id number]] Collected: 12/01/18933 Order Status: Completed Specimen: Blood Updated: 12/01/18 1009 Troponin I 0.021 0.00 - 0.04 ng/mL Comprehensive Metabolic Panel [[id number]] (Abnormal) Collected: 12/01/18933 Order Status: Completed Specimen: Blood Updated: 12/01/18 1009 Na 143 135 - 145 mmol/L K 4.0 3.5 - 4.9 mmol/L Cl 108 99 - 109 mmol/L CO2 27 23 - 32 mmol/L Anion Gap 12 5 - 20 mmol/L Glucose 192 65 - 99 mg/dL BUN 18 8 - 25 mg/dL Creatinine 0.89 0.70 - 1.30 mg/dL BUN/Creatinine Ratio 20 Calcium 10.0 8.5 - 10.5 mg/dL Protein, Total 7.0 6.3 - 8.2 g/dL Albumin 4.2 3.3 - 4.8 g/dL Globulin 2.8 1.3 - 4.9 g/dL A/G Ratio 1.5 1.0 - 2.4 BILIRUBIN, TOTAL 0.3 0.1 - 1.5 mg/dL ALK PHOS 111 35 - 115 U/L AST 23 10 - 45 U/L ALT 17 10 - 65 U/L Estimated GFR >60 >60 mL/min/1.73m2 Protime INR [[id number]] Collected: 12/01/18933 Order Status: Completed Specimen: Blood Updated: 12/01/18 1000 INR 1.0 CBC with Differential [[id number]] (Abnormal) Collected: 12/01/1834 Order Status: Completed Specimen: Blood Updated: 12/01/18955 WBC 12.55 3.80 - 11.00 K/uL RBC 5.30 4.20 - 5.70 M/uL Hemoglobin 15.0 13.2 - 17.0 g/dL Hematocrit 43.7 39.0 - 50.0 % MCV 82.5 80.0 - 100.0 fl MCH 28.4 27.0 - 34.0 pg MCHC 34.4 32.0 - 35.5 g/dL RDW-SD 41.6 37 - 53 fl Platelet Count 291 150 - 400 K/uL MPV 7.6 fl Diff Type AUTOMATED % Neutrophils 66.82 % % Lymphocytes 19.71 % Monocyte % 8.54 % Eosinophils % 4.25 % Basophils % 0.68 % Neutrophils, Absolute 8.39 1.90 - 7.40 K/uL Absolute Lymphocytes 2.47 1.00 - 3.90 K/uL Absolute Monocytes 1.07 0.00 - 0.80 K/uL Eosinophils, Absolute 0.53 0.00 - 0.50 K/uL Basophils, Absolute 0.09 0.00 - 0.10 K/uL I personally reviewed the lab results and they have been posted to the chart. Pertinent po sitive and negative findings have been addressed appropriately. Radiology and EKG Evaluation Imaging Results CT Head Cervical Spine wo Contrast (Final result) Result time 12/01/18 11:29:08 Final result by Neal Ramírez DO (12/01/18 11:29:08) Impression: 1. No acute intracranial process. 2. Negative for cervical spine fracture. Signed by: Staci Ramírez Chet Sign Date/Time: 12/01/2018 11:29 AM Narrative: CT HEAD WITHOUT CONTRAST; CT CERVICAL SPINE [...] evidence of acute paraspinal soft tissue abnormality. XR Chest PA and Lateral (Final result) Result time 12/01/18 10:10:22 Final result by Jae Gómez MD (12/01/18 10:10:22) Impression: Stable examination without evidence of acute cardiopulmonary disease. Signed by: Irina Gómez Casey Sign Date/Time: 12/01/2018 10:10 AM Narrative: CHEST PA AND LATERAL CLINICAL INFORMATION: Palpitations. [...] findings of DISH throughout the thoracic spine. XR Thoracic Spine 2 Vw (Final result) Result time 12/01/18 10:02:14 Final result by Jae Gómez MD (12/01/18 10:02:14) Impression: No acute osseous abnormality. Findings of DISH throughout the thoracic spine. Signed by: Irina Gómez Casey Sign Date/Time: 12/01/2018 10:02 AM Narrative: THORACIC SPINE THREE VIEWS CLINICAL INFORMATION: Multiple [...] thoracic spine. The visualized lungs are clear. EKG @ 08:24 Sinus rhythm, rate [address] changes concerning for acute ischemia Normal QRS, intervals, and QTc Interpreted by Reynaldo Prather DO at time of service. ED Diagnosis Final diagnoses: Recurrent syncope Uncontrolled hypertension Disposition: ED Disposition ED Disposition Condition Comment Discharge Stable Discharge to home. Follow-up Information Schedule an appointment as soon as possible for a visit with Mireya Pack NP. Specialty: Nurse Practitioner - Primary Care Contact information: [address] [facility] [address] [facility] [id number] [facility]. Specialty: Emergency Medicine Why: If symptoms worsen Contact information: [address] [facility] [phone] Discharge Medications: Discharge Medication List as of 12/01/2018 15:00 Dictation software, [employer], used which may contain error for similar sounding words even af ter review. Personal communication requested for any clarification. Attending Provider Note: IReynaldo,* personally performed the services caryl cribed in this documentation, as scribed by Xi David in my presence, and it is both acc urate and complete. Chart Reviewed and Completed. Scribe: Kari Fonseca, scribing for and in the presence of Reynaldo Prather ,*. Completed by: Kari James 12/01/2018 16:42 Reynaldo Prather DO 12/02/18 0831 Konstantin Vallejo RN - 12/01/2018 8:15 AM PDTPt now reports CP. Called for ekg documented in this encounter Plan of Treatment +--------+ + + + + | Date | Type | Specialty | Care Team | Description | +--------+ + + + + | 10/16/ | Anti-coag | Anticoagulation | Brittany Zaragoza | | | 2020 | visit | | [address] | | | | | | [place], | | | | | | [place] [address] | | | | | | [phone] | | | | | | | | +--------+ + + + + + +------+--------+ + + | Name | Type | Priori | Associated Diagnoses | Date/Time | | | | ty | | | + +------+--------+ + + | ED INFORMATION | COLTON | Routin | | 12/01/2018 8:11 AM | | EXCHANGE | | e | | PDT | + +------+--------+ + + documented as of this encounter Procedures + +--------+ + + + | Procedure Name | Priori | Date/Time | Associated Diagnosis | Comments | | | ty | | | | + +--------+ + + + | DRUGS OF ABUSE | STAT | 12/01/2018 | | Results for this | | SCREEN, URINE (H) | | 11:09 AM | | procedure are in the | | | | PDT | | results section. | + +--------+ + + + | URINALYSIS WITH | STAT | 12/01/2018 | | Results for this | | MICROSCOPIC | | 11:09 AM | | procedure are in the | | | | PDT | | results section. | + +--------+ + + + | CT HEAD CERVICAL | [facility] | 12/01/2018 | | Results for this | | SPINE WO CONTRAST | | 10:32 AM | | procedure are in the | | | | PDT | | results section. | + +--------+ + + + | XR CHEST PA AND | [facility] | 12/01/2018 | | Results for this | | LATERAL | | 9:49 AM | | procedure are in the | | | | PDT | | results section. | + +--------+ + + + | XR THORACIC SPINE 3 | [facility] | 12/01/2018 | | Results for this | | VW | | 9:49 AM | | procedure are in the | | | | PDT | | results section. | + +--------+ + + + | TROPONIN I | STAT | 12/01/2018 | | Results for this | | | | 9:34 AM | | procedure are in the | | | | PDT | | results section. | + +--------+ + + + | PROTIME INR | STAT | 12/01/2018 | | Results for this | | | | 9:34 AM | | procedure are in the | | | | PDT | | results section. | + +--------+ + + + | CBC WITH | STAT | 12/01/2018 | | Results for this | | DIFFERENTIAL | | 9:34 AM | | procedure are in the | | | | PDT | | results section. | + +--------+ + + + | ALCOHOL | STAT | 12/01/2018 | | Results for this | | | | 9:34 AM | | procedure are in the | | | | PDT | | results section. | + +--------+ + + + | COMPREHENSIVE | STAT | 12/01/2018 | | Results for this | | METABOLIC PANEL | | 9:34 AM | | procedure are in the | | | | PDT | | results section. | + +--------+ + + + | ECG 12 LEAD | Routin | 12/01/2018 | | Results for this | | | e | 8:24 AM | | procedure are in the | | | | PDT | | results section. | + +--------+ + + + | ED INFORMATION | Routin | 12/01/2018 | | | | EXCHANGE | e | 8:11 AM | | | | | | PDT | | | + +--------+ + + + +---+--------+ | | | | | Proced | | | ure | | | Note - | | | Richard, | | | Lab In | | | | | | Hlseve | | | n - | | | 10/26/ | | | 2019 | | | 8:12 | | | AM PDT | | [...] | | | ON?[birth year] | | [birth year] | | | 9 | | | 08:11? | | | GR, | | | NORAH | | | | | | M?MRN: | | | | | | [id number] | | | [id number] | | | riteri | | | [...] | | | ncy | | | Oct | | | [...] | | [facility] | [facility] [place] | | | [place] | | | [...] | | [facility] [place] | | | [place] | | | [place] | | | ncy | | | Chief | | | Compla | | | int: | | | SOB,RT | | | ARM | | | PAIN | | | Recent | | | [...] | | | /notif | | | [id number] | | | [id number] | | | 341-45 | | | [id number] | | | [id number] | | | [id number] | | | 5d | | | PLEASE | | | [...] | +---+--------+ documented in this encounter Results Drugs Of ABuse Screen, Urine (H) (12/01/2018 11:09 AM PDT) + + + + + + | Component | Value | Ref Range | Performed | Pathologist | | | | | At | Signature | + + + + + + | Amp/Methamp | NEGATIVEComment: | NEG | [facility] | | | hetamine, | Positive cutoff for AMP | | LABORATORY | | | Screen, | = 1000 ng/mL | | | | | Urine | | | | | + + + + + + | Barbiturate | NEGATIVEComment: | NEG | [facility] | | | s Screen, | Positive cutoff for JULIUS | | LABORATORY | | | Urine | = 200 ng/mL | | | | + + + + + + | Benzodiazep | NEGATIVEComment: | NEG | [facility] | | | andrei | Positive cutoff for | | LABORATORY | | | Screen, | BENZO = 200 ng/mL | | | | | Urine | | | | | + + + + + + | Cocaine | NEGATIVEComment: | NEG | [facility] | | | Metabolites | Positive cutoff for SAPNA | | LABORATORY | | | , Ur | = 300 ng/mL | | | | + + + + + + | Methadone | NEGATIVEComment: | NEG | [facility] | | | Screen, | Positive cutoff for MTD | | LABORATORY | | | Urine | = 300 ng/mL | | | | + + + + + + | Opiates | NEGATIVEComment: | NEG | [facility] | | | Screen, | Positive cutoff for OPI | | LABORATORY | | | Urine | = 300 ng/mL | | | | + + + + + + | Phencyclidi | NEGATIVEComment: | NEG | [facility] | | | ne Screen, | Positive cutoff for PCP | | LABORATORY | | | Urine | = 25 ng/mL | | | | + + + + + + | Tetrahydroc | NEGATIVEComment: | NEG | [facility] | | | annabinol(T | Positive cutoff for | | LABORATORY | | | HC) | THC = 50 ng/mLThe above | | | | | | are unconfirmed | | | | | | screening results. | | | | | | These results are to | | | | | | be used onlyfor medical | | | | | | (i.e.,treatment) | | | | | | purposes. Unconfirmed | | | | | | screening results must | | | | | | notbe used for | | | | | | non-medical purposes | | | | | | (e.g., employment | | | | | | testing, legal | | | | | | testing).Testing | | | | | | performed at [facility] | | | | | | [facility];[place], [place] | | | | | | [phone] | | | | + + + [...] | + + + + + | [facility] | [address] | [place] [address] | [phone] | + + + + + Urinalysis With Microscopic (12/01/2018 11:09 AM PDT) + + + + + [...] + + + + | Specific | 1.023 | 1.002 - 1.030 | [facility] | | | [place], | | | LABORATORY | | | [...] + + | Urobilinoge | NORMAL | <1.1 mg/dL | [facility] | | | n, Ur | | | LABORATORY | | + + + + + + | Protein, | 30 (A) | NEG mg/dL | [facility] | [...] + + + | Glucose, Ur | 50 (A) | NEG mg/dL | [facility] | | | | | | LABORATORY | | + + + + + + | WBC UA | 3-5 | 0 - 5 /hpf | [facility] | | | | | | LABORATORY | | + + + + + + | Red Blood | 0-2 | 0 - 2 /hpf | [facility] | | | Cells, | | | LABORATORY | | | Urine | | | | | + + + + + + | Squamous | 6-10 | /lpf | [facility] | | | Epithelial | | | LABORATORY | | | Cells, | | | | | | Urine | | | | | + + + + + + | Bacteria, | 1+ (A) | NONE | [facility] | | | Urine | | | LABORATORY | | + + + + + + | Mucus, | 1+Comment: Testing | | [facility] | | | Urine | performed at [facility] | | LABORATORY | | | | [address];[place] | | | | | | [phone] | | | | + + + [...] | + + + + + | [facility] | [address] | [place] [address] | [phone] | + + + + + CT Head Cervical Spine wo Contrast (12/01/2018 10:32 AM PDT) + + | Specimen | + + | | + + + + + | Impressions | Performed At | + + + | 1. No acute intracranial process. 2. Negative for cervical spine | [facility] | | fracture. Signed by: Staci Ramírez Chet Sign Date/Time: | | | 12/01/2018 11:29 AM | | + + + + + + | Narrative | Performed At | + + + | CT HEAD WITHOUT CONTRAST; CT CERVICAL SPINE WITHOUT CONTRAST | [facility] | | CLINICAL INFORMATION: Syncope, multiple falls, unknown if hit head. | | | COMPARISON: 10/10/2018 PROCEDURE: CT Head: Axial non-contrast | | | images were obtained through the head. CT Cervical Spine: Thin | | | section noncontrast axial images were obtained through the cervical | | | spine. Multiplanar reformations were obtained from the acquisition | | | data. At least one of the following CT dose optimization | | | techniques were used: Automated exposure control; Adjustment of mA | | | and/or kV according to patient size; Use of iterative reconstruction | | | technique. FINDINGS: CT Head: Brain: No intracranial hemorrhage, | | | midline shift or pathologic mass effect. No cerebral edema, mass | | | lesion, or evidence of infarct. Ventricles and extra-axial fluid | | | spaces: Normal. Paranasal sinuses and mastoid air cells: Paranasal | | | sinus disease with complete opacification of the frontal sinuses. | | | Mild partial opacification of the ethmoid sinuses. Calvarium | | | and extracranial soft tissue: Normal. Orbits: Imaged portions of | | | the orbits are normal. CT Cervical Spine: Alignment: Dextroconvex | | | curvature of the cervical spine Vertebrae: Mild degenerative | | | changes anterior arch of C1 with the dens. Negative for cervical | | | spine fracture. Cervical disc levels: Mild disc space narrowing | | | with mild endplate spurring at C3-4 and to a lesser extent C5-6 and | | | C6-7. Mild to moderate degenerative facet disease, greatest at C 3 | | | 4, C4-5, and C5-6 on the left side. Paraspinal soft tissues: No | | | evidence of acute paraspinal soft tissue abnormality. | | + + + + + | Procedure Note | + + | Richard, Rad Results In - 12/01/2018 11:32 AM PDT | | CT HEAD WITHOUT CONTRAST; CT CERVICAL SPINE WITHOUT CONTRAST | | | | CLINICAL INFORMATION: | | Syncope, multiple falls, unknown if hit head. | | | | COMPARISON: | | 10/10/2018 | | | | PROCEDURE: | | CT Head: Axial non-contrast images were obtained through the head. | | | | CT Cervical Spine: Thin section noncontrast axial images were obtained | | through the cervical spine. | | | | Multiplanar reformations were obtained from the acquisition data. | | | | At least one of the following CT dose optimization techniques were | | used: Automated exposure control; Adjustment of mA and/or kV according | | to patient size; Use of iterative reconstruction technique. | | | | FINDINGS: | | CT Head: | | Brain: No intracranial hemorrhage, midline shift or pathologic mass | | effect. No cerebral edema, mass lesion, or evidence of infarct. | | | | Ventricles and extra-axial fluid spaces: Normal. | | | | Paranasal sinuses and mastoid air cells: Paranasal sinus disease with | | complete opacification of the frontal sinuses. Mild partial | | opacification of the ethmoid sinuses. | | | | Calvarium and extracranial soft tissue: Normal. | | | | Orbits: Imaged portions of the orbits are normal. | | | | CT Cervical Spine: | | Alignment: Dextroconvex curvature of the cervical spine | | | | Vertebrae: Mild degenerative changes anterior arch of C1 with the dens. | | Negative for cervical spine fracture. | | | | Cervical disc levels: Mild disc space narrowing with mild endplate | | spurring at C3-4 and to a lesser extent C5-6 and C6-7. Mild to | | moderate degenerative facet disease, greatest at C 3 4, C4-5, and C5-6 | | on the left side. | | | | Paraspinal soft tissues: No evidence of acute paraspinal soft tissue | | abnormality. | | | | IMPRESSION: | | 1. No acute intracranial process. | | 2. Negative for cervical spine fracture. | | | | | | | | | | Signed by: Staci Ramírez Chet | | Sign Date/Time: 12/01/2018 11:29 AM | + + + +---------+ + + | Performing | Address | City/State/Zipcode | Phone Number | | Organization | | | | + +---------+ + + | [facility] | | | | + +---------+ + + XR Chest PA and Lateral (12/01/2018 9:49 AM PDT) + + | Specimen | + + | | + + + + + | Impressions | Performed At | + + + | Stable examination without evidence of acute cardiopulmonary | [facility] | | disease. Signed by: Irina Gómez, Jae Pina Date/Time: | | | 12/01/2018 10:10 AM | | + + + + + + | Narrative | Performed At | + + + | CHEST PA AND LATERAL CLINICAL INFORMATION: Palpitations. | [facility] | | COMPARISON: XR CHEST 1 VIEW (10/16/2018); XR CHEST 1 VIEW (10/13/2018); | | | XR CHEST PA AND LATERAL (10/11/2018); CTA CHEST PULMONARY EMBOLISM W | | | CONTRAST (09/21/2018); FINDINGS: Unchanged prominent epicardial | | | fat pad. The lungs are clear. Heart size and pulmonary | | | vasculature within normal limits. No pneumothorax or pleural | | | effusion. Stable chronic osseous findings, to include findings of | | | DISH throughout the thoracic spine. | | + + + + + | Procedure Note | + + | Richard, Rad Results In - 12/01/2018 10:13 AM PDT | | CHEST PA AND LATERAL | | | | CLINICAL INFORMATION: | | Palpitations. | | | | COMPARISON: | | XR CHEST 1 VIEW (10/16/2018); XR CHEST 1 VIEW (10/13/2018); XR CHEST PA | | AND LATERAL (10/11/2018); CTA CHEST PULMONARY EMBOLISM W CONTRAST | | (09/21/2018); | | | | FINDINGS: | | Unchanged prominent epicardial fat pad. The lungs are clear. Heart | | size and pulmonary vasculature within normal limits. No pneumothorax | | or pleural effusion. Stable chronic osseous findings, to include | | findings of DISH throughout the thoracic spine. | | | | IMPRESSION: | | Stable examination without evidence of acute cardiopulmonary disease. | | | | | | | | Signed by: Irina Gómez Casey | | Sign Date/Time: 12/01/2018 10:10 AM | + + + +---------+ + + | Performing | Address | City/State/Zipcode | Phone Number | | Organization | | | | + +---------+ + + | [facility] | | | | + +---------+ + + XR Thoracic Spine 3 Vw (12/01/2018 9:49 AM PDT) + + | Specimen | + + | | + + + + + | Impressions | Performed At | + + + | No acute osseous abnormality. Findings of DISH throughout the | [facility] | | thoracic spine. Signed by: Irina Gómez, Jae Pina | | | Date/Time: 12/01/2018 10:02 AM | | + + + + + + | Narrative | Performed At | + + + | THORACIC SPINE THREE VIEWS CLINICAL INFORMATION: Multiple | [facility] | | falls. Pain. Palpitations. COMPARISON: XR THORACIC SPINE 3 | | | VIEW (12/04/2014); XR THORACIC SPINE 2 VIEW (09/15/2014); XR THORACIC | | | SPINE 2 VIEW (10/06/2013); FINDINGS: There are 12 rib-bearing | | | thoracic vertebrae. Thoracic spine alignment is maintained. No | | | acute fracture identified. The pedicles appear intact. Findings | | | of DISH are again noted throughout the thoracic spine. The | | | visualized lungs are clear. | | + + + + +---------+ + + | Performing | Address | City/State/Zipcode | Phone Number | | Organization | | | | + +---------+ + + | [facility] | | | | + +---------+ + + Troponin I (12/01/2018 9:34 AM PDT) + + + + + + | Component | Value | Ref Range | Performed | Pathologist | | | | | At | Signature | + + + + + + | Troponin I | 0.021Comment: 0.04 | 0.00 - 0.04 | [facility] [place];[address] [facility] | | | | | | [place] [address] | | | | + + + + + + + + | Specimen | + + | Blood | + + + + + + + | Performing | Address | City/State/Zipcode | Phone Number | | Organization | | | | + + + + + | [facility] | [address] | [place] [address] | [phone] | + + + + + Ethanol (12/01/2018 9:34 AM PDT) + + + + + + | Component | Value | Ref Range | Performed | Pathologist | | | | | At | Signature | + + + + + + | ALCOHOL, | <10Comment: Testing | <10 mg/dL | [facility] | | | SERUM/PLASM | performed at [facility] [place];[facility] | | LABORATORY | | | A | [address];[place], [place] | | | | | | [address] | | | | + + + + + + + + | Specimen | + + | Blood | + + + + + + + | Performing | Address | City/State/Zipcode | Phone Number | | Organization | | | | + + + + + | [facility] | [address] | [place] [address] | [phone] | + + + + + Protime INR (12/01/2018 9:34 AM PDT) + + + + + + | Component | Value | Ref Range | Performed | Pathologist | | | | | At | Signature | + + + + + + | INR | 1.0Comment: REFERENCE | | [facility] | | | | RANGE:0.9 - [...] [facility] [place];[address];[place] | | | | | | [address] | | | | + + + + + + + + | Specimen | + + | Blood | + + + + + + + | Performing | Address | City/State/Zipcode | Phone Number | | Organization | | | | + + + + + | [facility] | [address] | [place] [address] | [phone] | + + + + + Comprehensive Metabolic Panel (12/01/2018 9:34 AM PDT) + + + + + [...] | 4.0 | 3.5 - 4.9 | [facility] | [...] + + + + | Glucose | 192 (H) | 65 - 99 mg/dL | [...] + + + + | BUN/Creatin | 20 | | [facility] | | | ine [...] + + + | ALK PHOS | 111 | 35 - 115 U/L | [facility] | | | | | | LABORATORY | | + + + + + + | AST | 23 | 10 - 45 U/L | [facility] | | | | | | LABORATORY | | + + + + + + | ALT | 17 | 10 - 65 U/L | [facility] | | | | | | LABORATORY | | + + + + + + | Estimated | >60Comment: GFR <60: | >60 | [facility] | | | GFR | CHRONIC [...] [place] [facility] [place];[address] | | | | | | [facility];[place], [place] | | | | | | [address] | | | | + + + + + + + + | Specimen | + + | Blood | + + + + + + + | Performing | Address | City/State/Zipcode | Phone Number | | Organization | | | | + + + + + | [facility] | [address] | [place] [address] | [phone] | + + + + + CBC with Differential (12/01/2018 9:34 AM PDT) + + + + + + | Component | Value | Ref Range | Performed | Pathologist | | | | | At | Signature | + + + + + + | WBC | 12.55 (H) | 3.80 - 11.00 | [facility] | | | | | K/uL | LABORATORY | | + + + + + + | Red Blood | 5.30 | 4.20 - 5.70 | [facility] | | | Cells | | M/uL | LABORATORY | | + + + + + + | Hemoglobin | 15.0 | 13.2 - 17.0 | [facility] | | | | | g/dL | LABORATORY | | + + + + + + | Hematocrit | 43.7 | 39.0 - 50.0 % | [facility] | | | | | | LABORATORY | | + + + + + + | MCV | 82.5 | 80.0 - 100.0 fl | [facility] | | | | | | LABORATORY | | + + + + + + | MCH | 28.4 | 27.0 - 34.0 pg | [facility] | | | | | | LABORATORY | | + + + + + + | MCHC | 34.4 | 32.0 - 35.5 | [facility] | | | | | g/dL | LABORATORY | | + + + + + + | RDW-SD | 41.6 | 37 - 53 fl | [facility] | | | | | | LABORATORY | | + + + + + + | Platelet | 291 | 150 - 400 K/uL | [facility] [...] + + + + | % | 66.82 | % | [facility] | | | Neutrophils | | | LABORATORY | | + + + + + + | % | 19.71 | % | [facility] | | | Lymphocytes | | | LABORATORY | | + + + + + + | Monocyte % | 8.54 | % | [facility] | | | | | | LABORATORY | | + + + + + + | Eosinophils | 4.25 | % | [facility] | | | % | | | LABORATORY | | + + + + + + | Basophils % | 0.68 | % | [facility] | | | | | | LABORATORY | | + + + + + + | Neutrophils | 8.39 (H) | 1.90 - 7.40 | [facility] | | | , Absolute | | K/uL | LABORATORY | | + + + + + + | Absolute | 2.47 | 1.00 - 3.90 | [facility] | | | Lymphocytes | | K/uL | LABORATORY | | + + + + + + | Absolute | 1.07 (H) | 0.00 - 0.80 | [facility] | | | Monocytes | | K/uL | LABORATORY | | + + + + + + | Eosinophils | 0.53 (H) | 0.00 - 0.50 | [facility] | | | , Absolute | | K/uL | LABORATORY | | + + + + + + | Basophils, | 0.09Comment: Testing | 0.00 - 0.10 | [facility] | | | Absolute | performed at [facility] [place];[address] | K/uL | LABORATORY | | | | [address];[place], [place] | | | | | | [address] | | | | + + + + + + + + | Specimen | + + | Blood | + + + + + + + | Performing | Address | City/State/Zipcode | Phone Number | | Organization | | | | + + + + + | [facility] | [address] | [place] [address] | [phone] | + + + + + ECG 12 lead (12/01/2018 8:24 AM PDT) + + + + + [...] + + + + | QRS | 78 | ms | [facility] | | [...] + + | P WAVE AXIS | 43 | degrees | [facility] | | + + + + + + | QRS AXIS | 48 | degrees | [facility] | | [...] | | | | | | hypertrophyNonspecific T | | | | | | wave | | | | | | abnormalityAbnormal | | | | | | ECGWhen compared with | | | | | | ECG of 13-OCT-2018 | | | | | | 14:59,T wave inversion | | | | | | no longer evident in | | | | | | Inferior leadsT wave | | | | | | inversion no longer | | | | | | evident in Anterior | | | | | | leadsThis [...] | | | | | ONLY, -COMPUTER ([id number]), | | | | | | story editor FEDERICO ELDER | | | | | | ([id number]) on 12/02/2018 | | | | | | 2:24:24 AM | | | | + + [...] + | Diagnosis | + + | Recurrent syncope - Primary | + + | Uncontrolled hypertension Unspecified essential hypertension | + + documented in this encounter
--- OUTSIDE RECORDS SUMMARY | ~2019-10-12 | XMS | Encounter Summary ---
Demographics + + + | Address | [address] | | | [place] [address] | + + + | Home Phone [...] + | Sammi Kohler | ECON | [place] [address] | | + + + + + Care Team Providers + +------+ + | Care Service Center Manager Name | Role | Phone | + +------+ + | Mireya Pack NP | PCP | | + +------+ + Reason for Visit +--------+--------+ + | Reason | Onset | Comments | | | Date | | +--------+--------+ + | Other | 05/30/ | TCM call- | | | 2020 | | +--------+--------+ + Encounter Details +--------+ + + + + | Date | Type | Department | Care Team | Description | +--------+ + + + + | 05/30/ | Telephone | [facility] | Myriam Gary, | Other (TCM call- ) | | 2019 | | [facility] [address] | Director Of Casework Department | | | | | [address] | | | | | | [place], [place] | | | | | | [address] | | | | | | [phone] | | | +--------+ + + + [...] encounter Miscellaneous Notes Telephone Encounter - Myriam Gary, Director Of Casework Department - 05/31/2019 1:16 PM PDTSufermin justin reached patient via telephone. Offered virtual appt on 06/03 @ 400pm and he declined. D oes not know how he would set up for virtual visit regardless of offering to help step by st ep instructions. Patient states that he can do a telephonic visit and I will forward this me harvinderge to PCP to see if that would work. elephone Encounter - Myriam Gary Director Of Casework Department - 05/31/2019 12:33 PM PDTAttempted to call patient, no answer left voicemail. Also called emergency contact, Kayleen and requested a call to see if she has a different # for patient to be reached. Awaiting call backs. elephone Encounter - Myriam Gary Medical As sisflakitot - 05/31/2019 12:32 PM PDT----- Message from Mireya Pack NP sent at 05/30/2019 12 :30 PM PDT ----- Please make sure patient is contacted for TCM appt documentation and may schedule virtual v isit Monday with me preferably or other provider if needed documented in this encounter Plan of Treatment [...] | | | | | | [place] [id number] | | | | | | [phone] | | | | | | | | +--------+ + + + + documented as of this encounter Visit Diagnoses Not on filedocumented in this encounter"
--- OUTSIDE RECORDS SUMMARY | ~2019-10-12 | XMS | Encounter Summary ---
Demographics + + + | Address | [address] | | | [place] [address] | + + + | Home Phone [...] + | Sammi Kohler | ECON | [place] [address] | | + + + + + Care Team Providers + +------+ + | Care Neurology Nurse Name | Role | Phone | + +------+ + PCP | Unavailable | + +------+ + Encounter Details +--------+ + + + + | Date | Type | Department | Care Team | Description | +--------+ + + + + | 03/22/ | Emergency | [facility] | Marcos Nugent, | Abdominal pain of | | 2013 | | [facility] | [address] | unknown etiology | | | | EMERGENCY CENTER | [place] [address] | | | | | [address] | [phone] | | | | | [place], [place] | | | | | | [address] | | | | | | [phone] | | | +--------+ + + + [...] Progress Notes Conversion Transaction, Provider Unknown - 03/22/2013 7:22 PM PSTFormatting of this note m ight be different from the original. Case Management by QUINN White at 03/22/131921 Author: QUINN White Service: (none) Author Type: Electronic Tester Filed: 03/22/131921 Date of Service: 03/22/131921 Status: Signed Hospital Administrative Assistant: QUINN White (Electronic Tester) COLTON alert Rcvd pt with a total of 19 ED visits, pt has pcp - and ins, MDCR / DSHS - referr al to [facility] docume nted in this encounter ED Notes Conversion Transaction, Provider Unknown - 03/22/2013 9:58 PM PSTFormatting of this note m ight be different from the original. ED Notes by Jv Liriano RN at 03/22/132157 Author: Jv Liriano RN Service: (none) Author Type: Registered Nurse Filed: 03/22/132158 Date of Service: 03/22/132157 Status: Signed Hospital Administrative Assistant: Jv Liriano RN (Registered Nurse) Report called to [facility] and notified of pt return. Notified that pt will be returning via cab. Jv Liriano RN 03/22/132158 rabtr jaren, Marcos Preston MD - 03/22/2013 7:50 PM PST ED Provider Notes by Marcos Nugent MD at 03/22/131949 Author: Marcos Nugent MD Service: (none) Author Type: Physician Filed: 03/23/13 0133 Date of Service: 03/22/131949 Status: Signed Hospital Administrative Assistant: Marcos Nugent MD (Physician) [facility] Department of Emergency Medicine 03/22/2013 History of Present Illness Patient Identification Norah Gr is a 57 y.o. male. Patient information was obtained from patient. History/Exam limitations: none. Patient presented to the Emergency Department by: Car Chief Complaint Chief Complaint Patient presents with Nausea 7:51 PM The patient presents to ED with complaints of diffuse abd pain Location:abd Quality:N/A Severity:moderate Context:N/A Timing:greater than 24 hours Duration:constant Modifying factors:N/A The patient also complains of diarrhea Patient denies fevers or vomiting This is a 57 yo male who presents to ED with a chief complaint of abd pain. The onset of sy mptoms was greater than 24 hours, with an unchanging course since that time. Severity is caryl cribed as moderate. Pt also reports having diarrhea. The pt denies having vomiting or fevers . PMHx: DM (Type II), AFib, HTN, hyperlipidemia, anxiety, depression, renal failure, GIB, [employer] D PCP: TAINA WASHBURN Past Medical History Diagnosis [...] 09/12/2012 Procedure: LAPAROSCOPIC - CHOLECYSTECTOMY; Surgeon: Jevon Varags DO; Location: [facility] MAIN OR; Service: General; Laterality: N/A; Abdominal surgery Cholecystectomy Skin cancer excision 10/10/2012 Procedure: EXCISION - SKIN CANCER; Surgeon: Sy Fierro MD; Location: [facility] MAIN OR ; Service: Plastics; Laterality: Left; upper arm and upper back w/frozen section Esophagogastroduodenoscopy 03/03/2013 Procedure: ESOPHAGOGASTRODUODENOSCOPY; Surgeon: Howie Gibson MD; Location: [facility] ENDOSCOPY; S ervice: Gastroenterology; Laterality: N/A; Colonoscopy 03/04/2013 Procedure: COLONOSCOPY; Surgeon: Howie Gibson MD; Location: [facility] ENDOSCOPY; Service: Gastroe nterology; Laterality: N/A; Prior to Admission medications Medication Sig Start Date End Date Taking? Authorizing Provider Albuterol Sulfate (VENTOLIN HFA IN) Inhale 2 puffs into the lungs as needed. Yes Historic al Provider ARIPiprazole (ABILIFY) 10 MG tablet Take 15 mg by mouth nightly. Yes Historical Provider calcium carbonate (TUMS) 500 MG chewable tablet Take 500-1,000 mg by mouth daily as needed. For GERD Yes Historical Provider cloNIDine (CATAPRES) 0.2 MG tablet Take 1 tablet by mouth 3 (three) times daily. 03/05/13 Yes Scott Martínez MD diltiazem (CARDIZEM CD) 240 [...] mg by mouth daily. Yes Historical Provider fluticasone-salmeterol (ADVAIR DISKUS) 250-50 MCG/DOSE AEPB Inhale 1 puff into the lungs ev wilbert 12 (twelve) hours. 09/14/12 Yes Augustine Agosto MD HYDROcodone-acetaminophen (NORCO) 5-325 MG per tablet Take 1 tablet by mouth every 6 (six) hours as needed. Yes Historical Provider insulin aspart (NOVOLOG) 100 UNIT/ML injection Inject 3 Units into the skin 3 (three) times daily before meals. Yes Historical Provider insulin aspart (NOVOLOG) 100 [...] greater than 270 or less than 60 Yes Historical Provider insulin glargine (LANTUS) 100 [...] mg by mouth daily. Yes Historical Provider nitroGLYCERIN (NITROSTAT) 0.[address] 0.4 mg under the tongue every 5 (five) min utes as needed. Yes Historical Provider pantoprazole (PROTONIX) 40 MG tablet Take 1 tablet by mouth every morning before breakfast. 03/05/13 03/05/14 Yes Scott Martínez MD paroxetine (PAXIL) 40 MG tablet Take 40 mg by mouth every morning. Yes Historical Provi carlos polyethylene glycol (GLYCOLAX) powder daily. Sig one capful in 8 oz of water two times a da y for five days then once a day. 03/13/13 03/22/13 Yes Gurvinder Cruz MD pravastatin (PRAVACHOL) 20 MG tablet Take 20 mg by mouth nightly. Yes Historical Provider tiotropium (SPIRIVA) 18 MCG inhalation capsule Inhale 18 mcg into the lungs daily. Yes Hi storical Provider polyethylene glycol (GLYCOLAX) powder Sig one capful in 8 oz of water two times a day for f aissatou days then once a day. 03/13/13 03/22/13 Gurvinder Cruz MD No Known Allergies History Social History [...] for fever and chills. Respiratory: Negative for cough. Cardiovascular: Negative for chest pain. Gastrointestinal: Positive for abdominal pain and diarrhea. Negative for vomiting. All other systems reviewed and are negative. Physical Exam Filed Vitals: 03/22/13 1830 03/22/13201403/22/13 2219 BP: 126/59 152/75 145/72 Pulse: 68 64 68 Temp: 97.2 F (36.2 C) Resp: 16 16 16 SpO2: 96% 97% 98% Vital sign interpretation: Slightly hypotensive, otherwise normal Pulse Oximetry interpretation: Normal General: Alert, no active distress Eyes: Normal inspection, EOMI, Head: NCAT ENT: Ears normal Nose normal Neck: Normal inspection, Supple, FROM without pain, No cervical spine tenderness Cardiovascular: No peripheral edema, Extremity perfusion appears normal Respiratory: Effort normal, No respiratory distress, Lungs are clear Abdomen: Nondistended, Soft, nontender, No pulsatile abd masses, No guarding or rebound Back: Normal inspection, normal movement. Skin: No rash Extremities: No deformities, No tenderness Neuro: Alert, oriented, cranial nerves grossly intact. No gross motor deficits, Sensation intact/symmetrical in all Ext., Chest, Abd. Psych: Mood normal Lymph: No visible adenopathy Medical Decision Making and Emergency Department Course ED Department Course My DDx includes, but is not limited to: see below. The following medications were given during the course of treatment in the Emergency Depart ment: [COMPLETED] ondansetron 4 mg Intravenous Once [COMPLETED] oxyCODONE-acetaminophen 1 tablet Oral Once MDM: Pleasant 57 y.o. male Differential: Abdominal pain, appendicitis, diverticulitis Patient presents increasing abdominal pain progressive over last couple days, moderate jose re, tenderness over McBurney's point right lower quadrant, no rebound or guarding, does not appear to have any significant abdominal distention, he is somewhat overweight however. I am concerned about appendicitis hence we will proceed with a CT of his abdomen and pelvis with rectal contrast. Although it is not a classical presentation it does remain in the dif ferential 8:21 PM: Laboratory interpretation reveals some renal insufficiency slightly worse than bas ike, hyperglycemia otherwise normal LFTs and lipase CT report does not reveal any evidence of appendicitis, repeated, exam some vague tendernes s over the suprapubic right lower quadrant no rebound no guarding I discussed with him indic ations bring back. I discussed possibility of occult appendicitis and possibilities of false negative workup. I discussed a need for continued healthy concern and need for repeat exam in 12 to 24 hours if not significantly improved and sooner if worsening. 9:53 PM: Patient reevaluation. Patient is stable and feeling better at this time. The pt st ates that he has an appointment with PCP in one week. Advised to keep this appointment. I d iscussed all ED results and my clinical impression with the patient. Patient is ready for di scharge. I advised patient as to the time frame for follow up, and we discussed the emergent signs and symptoms that would necessitate a return to ED. All questions and concerns addres sed. Records Reviewed Old medical records. Nursing notes. (Using the electronic record system of [facility]) Laboratory Evaluation Results Procedure Component Value Ref Range Date/Time Comprehensive metabolic panel [[id number]] (Abnormal) Collected:03/22/131844 Order Status:Completed Updated:03/22/131916 Specimen Information:Blood SODIUM 139 135 - 143 mmol/L POTASSIUM 4.0 3.5 - 4.9 mmol/L CHLORIDE 101 99 - 109 mmol/L CO2 34 (H) 23 - 32 mmol/L ANION GAP AGAP 8 5 - 20 mmol/L GLUCOSE 238 (H) 65 - 99 mg/dL BUN 18 8 - 25 mg/dL CREATININE 1.48 (H) 0.70 - 1.30 mg/dL BUN/CREAT 12 CALCIUM 9.2 8.5 - 10.2 mg/dL TOTAL PROTEIN 7.4 6.3 - 8.2 g/dL Albumin 3.5 (L) 3.6 - 5.0 g/dL GLOBULIN 3.9 1.3 - 4.9 g/dL A/G 0.9 (L) 1.0 - 2.4 TBIL 0.3 0.1 - 1.5 mg/dL ALK PHOS 107 35 - 115 U/L AST 24 10 - 45 U/L ALT 29 10 - 65 U/L EGFR 52 (L) >60 mL/min/1.73m2 Lipase [[id number]] Collected:03/22/131844 Order Status:Completed Updated:03/22/131916 Specimen Information:Blood LIPASE 166 73 - 393 U/L CBC with differential [[id number]] (Abnormal) Collected:03/22/13 1845 Order Status:Completed Updated:03/22/131856 Specimen Information:Blood WBC 9.8 3.8 - 11.0 K/uL RBC 4.84 4.20 - 5.70 M/uL HGB 13.3 13.2 - 17.0 g/dL HCT 40.0 39.0 - 50.0 % MCV 82.7 80.0 - 100.0 fl MCH 27.4 27.0 - 34.0 pg MCHC 33.2 32.0 - 35.5 g/dL RDW SD 42.9 37 - 53 fl PLT 304 150 - 400 K/uL MPV 7.3 fl DIFF TYPE AUTOMATED NEUTROPHILS 56.5 % LYMPHOCYTES 30.2 % MONOCYTES 9.1 % EOSINOPHILS 3.5 % BASOPHILS 0.7 % NEUTROPHILS ABS 5.6 1.9 - 7.4 K/uL LYMPHOCYTES ABS 3.0 [...] Results CT Appendicitis Protocol (Final result) Result time:03/22/132120 Final result by Rad Results In Richard (03/22/13 21:21:05) Impression: 1. No definite cause for abdominal pain demonstrated. 2. Incidental notation made of simple 3 cm right renal cyst unchanged from December 2012. 3. Appendix is 8 mm in diameter but otherwise appears normal. This is unchanged from Abdirahman meadows 2012. No definite evidence of appendicitis. 4. The patient is status post cholecystectomy. 5. Degenerative changes seen in the hip joints. Narrative: NORAH GR CT PELVIS APPY WO CONTRAST 03/22/2013 8:36 PM HISTORY: 57 years. Male. Abdominal pain. Assess for appendicitis. TECHNIQUE: 2-mm axial images were acquired through the pelvis. Rectal Contrast: Gastrograffin Oral Contrast: None IV contrast: None COMPARISON: 01/05/2013 CT abdomen pelvis. FINDINGS: The visualized portions of the liver, spleen, pancreas, adrenal glands and kidneys are norm al with the exception of a simple exophytic cyst arising from the lateral lower margin of th e right kidney measuring 3 cm in diameter. The patient is status post cholecystectomy. The aorta and vena cava are normal in caliber throughout their visualized course including the iliac and femoral vessels. No free fluid or free air is seen. No adenopathy is seen. The visualized small bowel and the ileocecal valve are normal. No air-fluid levels are see n to suggest obstruction. The appendix is clearly identified and measures 8 mm in diameter however this is unchanged from the previous exam. There is no wall thickening seen in the a ppendix and there is air and contrast material seen in the appendiceal lumen. No inflammati on is seen surrounding the appendix to suggest appendicitis. The ascending colon, transvers e colon, descending colon, sigmoid colon and rectum demonstrate normal wall thickness. No d iverticulosis is noted. The bladder is only partially fluid filled but is otherwise normal. The prostate is normal in size. The seminal vesicles are normal. The visualized portion o f the penis is normal. The muscles are symmetric. No focal atrophy or soft tissue mass is seen. No hernias are i dentified. The osseous structures do not demonstrate lytic or blastic lesions. The SI joints are norm al. The hip joints show mild degenerative change of the right and moderate degenerative arina nge of the left. ED Diagnosis Final diagnosis Abdominal pain of unknown etiology Disposition: ED Disposition Orders Discharge Condition at discharge: stable Follow-up Information Follow up With Details Comments Contact Info CITLALY Kent In 3 days [address] [facility] [address] [facility] Emergency Department If symptoms worsen [address] [facility] [address] Discharge Medications: New Prescriptions No new medications This document has been prepared with a voice recognition system. The possibility of "sound alike" burr sander errors, and additions or deletions may occur. If there is any questio n, with respect to clarity of the message being conveyed, please contact me directly for cla rification. Additional Documentation Procedures Attending Note: Documentation assistance provided by Sigifredo Alamo (Scribe). Information recorded by the scribe has been reviewed and validated by me. I ag ree with its contents. Marcos Nugent MD, MPH Marcos Nugent MD 03/23/13 0133 documented in this encounter Plan of Treatment +--------+ + + + + | Date | Type | Specialty | Care Team | Description | +--------+ + + + + | 10/16/ | Anti-coag | Anticoagulation | Brittany Zaragoza | | | 2020 | visit | | [address] | | | | | | [place], | | | | | | [place] [address] | | | | | | [phone] | | | | | | | | +--------+ + + + + documented as of this encounter Procedures + +--------+ + + + | Procedure Name | Priori | Date/Time | Associated Diagnosis | Comments | | | ty | | | | + +--------+ + + + | CT PELVIS WO | Routin | 03/22/2013 | | Results for this | | CONTRAST | e | 8:36 PM | | procedure are in the | | | | PST | | results section. | + +--------+ + + + | ECG 12 LEAD | Routin | 03/22/2013 | | Results for this | | | e | 6:54 PM | | procedure are in the | | | | PST | | results section. | + +--------+ + + + | EXTERNAL LAB: CBC | Routin | 03/22/2013 | | Results for this | | | e | 6:45 PM | | procedure are in the | | | | PST | | results section. | + +--------+ + + + | LIPASE | Routin | 03/22/2013 | | Results for this | | | e | 6:45 PM | | procedure are in the | | | | PST | | results section. | + +--------+ + + + | COMPREHENSIVE | Routin | 03/22/2013 | | Results for this | | METABOLIC PANEL | e | 6:45 PM | | procedure are in the | | | | PST | | results section. | + +--------+ + + + documented in this encounter Results CT Pelvis wo Contrast (03/22/2013 8:36 PM PST) + + | Specimen | + + | | + + + + + | Impressions | Performed At | + + + | 1. No definite cause for abdominal pain demonstrated. 2. | | | Incidental notation made of simple 3 cm right renal cyst unchanged | | | from December 2012. 3. Appendix is 8 mm in diameter but otherwise | | | appears normal. This is unchanged from December 2012. No definite | | | evidence of appendicitis. 4. The patient is status post | | | cholecystectomy. 5. Degenerative changes seen in the hip joints. | | | | | + + + + + + | Narrative | Performed At | + + + | NORAH GR CT PELVIS APPY WO CONTRAST 03/22/2013 8:36 PM | | | HISTORY: 57 years. Male. Abdominal pain. Assess for | | | appendicitis. TECHNIQUE: 2-mm axial images were acquired through | | | the pelvis. Rectal Contrast: Gastrograffin Oral Contrast: None IV | | | contrast: None COMPARISON: 01/05/2013 CT abdomen pelvis. | | | FINDINGS: The visualized portions of the liver, spleen, pancreas, | | | adrenal glands and kidneys are normal with the exception of a simple | | | exophytic cyst arising from the lateral lower margin of the right | | | kidney measuring 3 cm in diameter. The patient is status post | | | cholecystectomy. The aorta and vena cava are normal in caliber | | | throughout their visualized course including the iliac and femoral | | | vessels. No free fluid or free air is seen. No adenopathy is | | | seen. The visualized small bowel and the ileocecal valve are | | | normal. No air-fluid levels are seen to suggest obstruction. The | | | appendix is clearly identified and measures 8 mm in diameter however | | | this is unchanged from the previous exam. There is no wall | | | thickening seen in the appendix and there is air and contrast material | | | seen in the appendiceal lumen. No inflammation is seen surrounding | | | the appendix to suggest appendicitis. The ascending colon, | | | transverse colon, descending colon, sigmoid colon and rectum | | | demonstrate normal wall thickness. No diverticulosis is noted. | | | The bladder is only partially fluid filled but is otherwise normal. | | | The prostate is normal in size. The seminal vesicles are normal. | | | The visualized portion of the penis is normal. The muscles are | | | symmetric. No focal atrophy or soft tissue mass is seen. No | | | hernias are identified. The osseous structures do not demonstrate | | | lytic or blastic lesions. The SI joints are normal. The hip joints | | | show mild degenerative change of the right and moderate degenerative | | | change of the left. | | + + + + + | Procedure Note | + + | Richard, Rad Conversion - 09/21/2018 3:31 PM PDT NORAH GRIA PELVIS APPY WO | | CONTRAST03/22/2013 8:36 PM HISTORY:57 years. Male. Abdominal pain. Assess for | | appendicitis. TECHNIQUE:2-mm axial images were acquired through the pelvis.Rectal | | Contrast: GastrograffinOral Contrast: NoneIV contrast: None COMPARISON:01/05/2013 CT | | abdomen pelvis. FINDINGS:The visualized portions of the liver, spleen, pancreas, adrenal | | glands and kidneys are normal with the exception of a simple exophytic cyst arising | | from the lateral lower margin of the right kidney measuring 3 cm in diameter. The | | patient is status post cholecystectomy. The aorta and vena cava are normal in caliber | | throughout their visualized course including the iliac and femoral vessels. No free | | fluid or free air is seen. No adenopathy is seen. The visualized small bowel and the | | ileocecal valve are normal. No air-fluid levels are seen to suggest obstruction. The | | appendix is clearly identified and measures 8 mm in diameter however this is unchanged | | from the previous exam. There is no wall thickening seen in the appendix and there is | | air and contrast material seen in the appendiceal lumen. No inflammation is seen | | surrounding the appendix to suggest appendicitis. The ascending colon, transverse | | colon, descending colon, sigmoid colon and rectum demonstrate normal wall thickness. No | | diverticulosis is noted. The bladder is only partially fluid filled but is otherwise | | normal. The prostate is normal in size. The seminal vesicles are normal. The | | visualized portion of the penis is normal. The muscles are symmetric. No focal atrophy | | or soft tissue mass is seen. No hernias are identified. The osseous structures do not | | demonstrate lytic or blastic lesions. The SI joints are normal. The hip joints show | | mild degenerative change of the right and moderate degenerative change of the left. | | IMPRESSION: 1. No definite cause for abdominal pain demonstrated.2. Incidental | | notation made of simple 3 cm right renal cyst unchanged from December 2012.3. Appendix | | is 8 mm in diameter but otherwise appears normal. This is unchanged from December 2012. | | No definite evidence of appendicitis.4. The patient is status post cholecystectomy.5. | | Degenerative changes seen in the hip joints. | |thickening seen in the appendix and there is air and contrast material seen in the appendic eal lumen. No inflammation is seen surrounding the appendix to suggest appendicitis. The a scending colon, transverse colon, | |descending colon, sigmoid colon and | |rectum demonstrate normal wall thickness. No diverticulosis is noted. | | | |The bladder is only partially fluid filled but is otherwise normal. | | | |The prostate is normal in size. The seminal vesicles are normal. The visualized portion o f the penis is normal. | | | |The muscles are symmetric. No focal atrophy or soft tissue mass is seen. No hernias are i dentified. | | | |The osseous structures do not demonstrate lytic or blastic lesions. The SI joints are norm al. The hip joints show mild degenerative change of the right and moderate degenerative arina nge of the left. | | | |IMPRESSION: | |1. No definite cause for abdominal pain demonstrated. | |2. Incidental notation made of simple 3 cm right renal cyst unchanged from December 2012. | |3. Appendix is 8 mm in diameter but otherwise appears normal. This is unchanged from Abdirahman meadows 2012. No definite evidence of appendicitis. | |4. The patient is status post cholecystectomy. | |5. Degenerative changes seen in the hip joints. | | | | | + + ECG 12 lead (03/22/2013 6:54 PM PST) + + + + + [...] of | | | | | | 04-MAR-2013 17:51,No | | | | | | significant [...] (500), | | | | | | graphic editor Keyla Gregory | | | | | | (25) on 03/23/2013 | | | | | | 12:58:47 AM | | | | + + + + + + + + | Specimen | + + | | + + + + + | Narrative | Performed At | + + + | Historically converted procedure from [facility] environment | EXTERNAL LAB | + + + + +---------+ + + | Performing | Address | City/State/Zipcode | Phone Number | | Organization | | | | + +---------+ + + | EXTERNAL LAB | | | | + +---------+ + + External Lab: CBC (03/22/2013 6:45 PM PST) + + + + + + | Component | Value | Ref Range | Performed | Pathologist | | | | | At | Signature | + + + + + + | WBC | 9.8Comment: Testing | 3.8 - 11.0 K/uL | EXTERNAL | | | | performed at [facility];[address] | | LAB | | | [address];[place] | | | | | | [id number] | | | | + + + + + + | Non- | 4.84Comment: Testing | 4.20 - 5.70 | EXTERNAL | | | Red Blood | performed at [facility];[address] | M/uL | LAB | | | Cells | [address];[place] | | | | | Counted | [id number] | | | | + + + + + + | Hemoglobin | 13.3Comment: Testing | 13.2 - 17.0 | EXTERNAL | | | | performed at [facility];888 | g/dL | LAB | | | | [address];[place] | | | | | | [phone] | | | | + + + + + + | Hematocrit, | 40.0Comment: Testing | 39.0 - 50.0 % | EXTERNAL | | | POC | performed at [facility];[address] | | LAB | | | | [address];[place] | | | | | | [address] | | | | + + + + + + | MCV | 82.7Comment: Testing | 80.0 - 100.0 fl | EXTERNAL | | | | performed at [facility];[address] | | LAB | | | | [address];[place] | | | | | | [address] | | | | + + + + + + | MCH | 27.4Comment: Testing | 27.0 - 34.0 pg | EXTERNAL | | | | performed at [facility];[address] | | LAB | | | | [address];[place] | | | | | | [address] | | | | + + + + + + | MCHC | 33.2Comment: Testing | 32.0 - 35.5 | EXTERNAL | | | | performed at [facility];[address] | g/dL | LAB | | | | [address];[place] | | | | | | [address] | | | | + + + + + + | RDW-CV | 42.9Comment: Testing | 37 - 53 fl | EXTERNAL | | | | performed at [facility];[address] | | LAB | | | | [address];[place] | | | | | | [address] | | | | + + + + + + | Platelet | 304Comment: Testing | 150 - 400 K/uL | EXTERNAL | | | Count | performed at [facility];[address] | | LAB | | | Plasma | [address];[place] | | | | | | [address] | | | | + + + + + + | MPV | 7.3Comment: Testing | fl | EXTERNAL | | | | performed at [facility];[address] | | LAB | | | | [address];[place] | | | | | | [address] | | | | + + + + + + | Differentia | AUTOMATEDComment: | | EXTERNAL | | | l Type | Testing performed at | | LAB | | | | [facility];[address] | | [address];[place] [address] | | | | + + + + + + | % Segmented | 56.5Comment: Testing | % | EXTERNAL | | | | performed at [facility];[address] | | LAB | | | Neutrophils | [address];[place] | | | | | | [address] | | | | + + + + + + | % | 30.2Comment: Testing | % | EXTERNAL | | | Lymphocytes | performed at [facility];[address] | | LAB | | | | [address];[place] | | | | | | [address] | | | | + + + + + + | % Monocytes | 9.1Comment: Testing | % | EXTERNAL | | | | performed at [facility];[address] | | LAB | | | | [address];[place] | | | | | | [address] | | | | + + + + + + | % | 3.5Comment: Testing | % | EXTERNAL | | | Eosinophils | performed at [facility];[address] | | LAB | | | | [address];[place] | | | | | | [address] | | | | + + + + + + | % Basophils | 0.7Comment: Testing | % | EXTERNAL | | | | performed at [facility];[address] | | LAB | | | | [address];[place] | | | | | | [address] | | | | + + + + + + | Absolute | 5.6Comment: Testing | 1.9 - 7.4 K/uL | EXTERNAL | | | Segmented | performed at [facility];[address] | | LAB | | | Neutrophils | [address];[place] | | | | | | [address] | | | | + + + + + + | Absolute | 3.0Comment: Testing | 1.0 - 3.9 K/uL | EXTERNAL | | | Lymphocytes | performed at [facility];[address] | | LAB | | | | [address];[place] | | | | | | [address] | | | | + + + + + + | Absolute | 0.9 (H)Comment: Testing | 0 - 0.8 K/uL | EXTERNAL | | | Monocytes | performed at [facility];[address] | | LAB | | | | [address];[place] | | | | | | [address] | | | | + + + + + + | Absolute | 0.3Comment: Testing | 0 - 0.5 K/uL | EXTERNAL | | | Eosinophils | performed at [facility];[address] | | LAB | | | | [address];[place] | | | | | | [address] | | | | + + + + + + | Absolute | 0.1Comment: Testing | 0 - 0.1 K/uL | EXTERNAL | | | Basophils | performed at [facility] | | LAB | | | | [address];[place], [place] | | | | | | [address] | | | | + + + + + + + + | Specimen | + + | Blood specimen | | (specimen) | + + + +---------+ + + | Performing | Address | City/State/Zipcode | Phone Number | | Organization | | | | + +---------+ + + | EXTERNAL LAB | | | | + +---------+ + + Lipase (03/22/2013 6:45 PM PST) + + + + + + | Component | Value | Ref Range | Performed | Pathologist | | | | | At | Signature | + + + + + + | Lipase | 166Comment: Testing | 73 - 393 U/L | EXTERNAL | | | | performed at [facility];[address] | | LAB | | | | [address] [facility];[place], [place] | | | | | | [address] | | | | + + + [...] +---------+ + + Comprehensive Metabolic Panel (03/22/2013 6:45 PM PST) + + + + + + | Component | Value | Ref Range | Performed | Pathologist | | | | | At | Signature | + + + + + + | Na | 139Comment: Testing | 135 - 143 | EXTERNAL | | | | performed at [facility];888 | mmol/L | LAB | | | | [address];[place] | | | | | | [address] | | | | + + + + + + | K | 4.0Comment: Testing | 3.5 - 4.9 | EXTERNAL | | | | performed at [facility];[address] | mmol/L | LAB | | | | [address];[place] | | | | | | [address] | | | | + + + + + + | Cl | 101Comment: Testing | 99 - 109 mmol/L | EXTERNAL | | | | performed at [facility];[address] | | LAB | | | | [address];[place] | | | | | | [address] | | | | + + + + + + | CO2 | 34 (H)Comment: Testing | 23 - 32 mmol/L | EXTERNAL | | | | performed at [facility];[address] | | LAB | | | | [address];[place] | | | | | | [address] | | | | + + + + + + | Anion Gap | 8Comment: Testing | 5 - 20 mmol/L | EXTERNAL | | | | performed at [facility];[address] | | LAB | | | | [address];[place] | | | | | | [address] | | | | + + + + + + | Glucose, | 238 (H)Comment: Testing | 65 - 99 mg/dL | EXTERNAL | | | Fasting | performed at [facility];[address] | | LAB | | | | [address];[place] | | | | | | [address] | | | | + + + + + + | BUN | 18Comment: Testing | 8 - 25 mg/dL | EXTERNAL | | | | performed at [facility];[address] | | LAB | | | | [address];[place] | | | | | | [address] | | | | + + + + + + | Creatinine | 1.48 (H)Comment: Testing | 0.70 - 1.30 | EXTERNAL | | | | performed at [facility];888 | mg/dL | LAB | | | | [address];[place] | | | | | | [address] | | | | + + + + + + | BUN/Creatin | 12Comment: Testing | | EXTERNAL | | | ine Ratio | performed at [facility];[address] | | LAB | | | | [address];[place] | | | | | | [address] | | | | + + + + + + | Calcium | 9.2Comment: Testing | 8.5 - 10.2 | EXTERNAL | | | | performed at [facility];888 | mg/dL | LAB | | | | [address];[place] | | | | | | [address] | | | | + + + + + + | Protein, | 7.4Comment: Testing | 6.3 - 8.2 g/dL | EXTERNAL | | | Total | performed at [facility];[address] | | LAB | | | | [address];[place] | | | | | | [address] | | | | + + + + + + | Albumin | 3.5 (L)Comment: Testing | 3.6 - 5.0 g/dL | EXTERNAL | | | | performed at [facility];[address] | | LAB | | | | [address];[place] | | | | | | [address] | | | | + + + + + + | Globulin | 3.9Comment: Testing | 1.3 - 4.9 g/dL | EXTERNAL | | | | performed at [facility];[address] | | LAB | | | | [address];[place] | | | | | | [address] | | | | + + + + + + | A/G Ratio | 0.9 (L)Comment: Testing | 1.0 - 2.4 | EXTERNAL | | | | performed at [facility];[address] | | LAB | | | | [address];[place] | | | | | | [address] | | | | + + + + + + | Bilirubin | 0.3Comment: Testing | 0.1 - 1.5 mg/dL | EXTERNAL | | | Total | performed at [facility];[address] | | LAB | | | | [address];[place] | | | | | | [address] | | | | + + + + + + | ALP, | 107Comment: Testing | 35 - 115 U/L | EXTERNAL | | | External | performed at [facility];[address] | | LAB | | | | [address];[place] | | | | | | [address] | | | | + + + + + + | AST | 24Comment: Testing | 10 - 45 U/L | EXTERNAL | | | | performed at [facility];[address] | | LAB | | | | [address];[place] | | | | | | [address] | | | | + + + + + + | ALT | 29Comment: Testing | 10 - 65 U/L | EXTERNAL | | | | performed at [facility];[address] | | LAB | | | | [address];[place] | | | | | | [address] | | | | + + + + + + | Estimated | 52 (L)Comment: GFR <60: | mL/min/1.73m2 | EXTERNAL [...] | | | | | | at [facility];[address] [facility] | | | | | | [facility];[place] [address] | | | | + + + [...] Diagnosis | + + | Abdominal pain of unknown etiology Abdominal pain, unspecified site | + + documented in this encounter
--- OUTSIDE RECORDS SUMMARY | ~2019-10-12 | XMS | Encounter Summary ---
Demographics + + + | Address | [address] | | | [place] [address] | + + + | Home Phone [...] + | Sammi Kohler | ECON | [place] [address] | | + + + + + Care Team Providers + +------+ + | Care Tin Worker Name | Role | Phone | + +------+ + PCP | Unavailable | + +------+ + Encounter Details +--------+ + + + + | Date | Type | Department | Care Team | Description | +--------+ + + + + | 05/19/ | Emergency | [facility] | Zach Tena, | Non-cardiac chest | | 2014 - | | [facility] | MD [address] | pain | | | | EMERGENCY CENTER | [place] [address] | | | 05/20/ | | [address] | [phone] | | | 2013 | | [place], [place] | | | | | | [address] | | | | | | [phone] | | | +--------+ + + + [...] Author: QUINN Saldana Service: (none) Author Type: Impregnator Helper Filed: 05/19/132113 Date of Service: 05/19/132112 Status: Signed Office Machine Inspector: QUINN Saldana (Impregnator Helper) Received [facility] alert Pt has 22 ED visits w/i last 12 months all to [facility]. docume nted in this encounter ED Notes Conversion Transaction, Provider Unknown - 05/20/2013 1:34 AM PDTFormatting of this note m ight be different from the original. ED Notes by Marques Murphy RN at 05/20/13133 Author: Marques Murphy RN Service: (none) Author Type: Registered Nurse Filed: 05/20/13145 Date of Service: 05/20/13133 Status: Signed Office Machine Inspector: Marques Murphy RN (Registered Nurse) Report called and given to Amarilys at [facility] in [place]. Marques Murphy RN 05/20/13145 onver ivana Transaction, Provider Unknown - 05/19/2013 10:43 PM PDT ED Notes by Doris Moya at 05/19/132242 Author: Doris Moya Service: (none) Author Type: Catalytic Converter Operator Helper Filed: 05/19/132242 Date of Service: 05/19/132242 Status: Signed Office Machine Inspector: Doris Moya (Catalytic Converter Operator Helper) Pt returned from XR Doris Moya 05/19/132242 ach Tena MD - 05/19/2013 10:02 PM PDTFormatting of this note might be different from the o riginal. ED Provider Notes by Zach Tena MD at 05/19/132201 Author: Zach Tena MD Service: (none) Author Type: Physician Filed: 05/22/13 0628 Date of Service: 05/19/132201 Status: Signed Office Machine Inspector: Zach Tena MD (Physician) [facility] Department of Emergency Medicine 10:02 PM History of Present Illness Patient Identification Kevyn Guzman is a 57 y.o. male. Patient information was obtained from patient. History/Exam limitations: none. Patient presented to the Emergency Department by: [employer] Chief Complaint Chief Complaint Patient [...] - CHOLECYSTECTOMY; Surgeon: Jevon Vargas DO; Location: [facility] MAIN OR; Service: General; Laterality: N/A; Abdominal surgery Cholecystectomy Skin cancer excision 10/10/2012 Procedure: EXCISION - SKIN CANCER; Surgeon: Sy Fierro MD; Location: [facility] MAIN OR ; Service: Plastics; Laterality: Left; upper arm and upper back w/frozen section Esophagogastroduodenoscopy 03/03/2013 Procedure: ESOPHAGOGASTRODUODENOSCOPY; Surgeon: Howie Gibson MD; Location: [facility] ENDOSCOPY; S ervice: Gastroenterology; Laterality: N/A; Colonoscopy 03/04/2013 Procedure: COLONOSCOPY; Surgeon: Howie Gibson MD; Location: [facility] ENDOSCOPY; Service: Gastroe nterology; Laterality: [...] on file Social History Narrative Lives in penitentiary, [place], full code Family History Problem Relation [...] Value Ref Range Date/Time POC clinitek 10 [[id number]] (Abnormal) Collected:05/19/132312 Order Status:Completed Updated:05/19/132317 Color, UA [...] UA TRACE (A) NEGATIVE Complete Metabolic Panel [[id number]] (Abnormal) Collected:05/19/132119 Order Status:Completed Updated:05/19/132233 Specimen Information:Blood [...] U/L EGFR 53 (L) >60 mL/min/1.73m2 Lipase [[id number]] Collected:05/19/132119 Order Status:Completed Updated:05/19/132233 Specimen Information:Blood LIPASE 185 73 - 393 U/L PT [[id number]] Collected:05/19/132119 Order Status:Completed Updated:05/19/132227 Specimen Information:Blood INR 1.1 CBC w Auto Diff [[id number]] (Abnormal) Collected:05/19/132119 Order Status:Completed Updated:05/19/132223 Specimen Information:Blood [...] for evaluatio n within this week [address] [facility] [address] [facility] Emergency Department If symptoms worsen [address] [facility] [address] Discharge Medications: New Prescriptions DILTIAZEM (CARDIZEM CD) [...] 05/19/132110 Date of Service: 05/19/132110 Status: Signed Office Machine Inspector: Onel Kenney RN (Registered Nurse) Bed:15
Expected date:
Expected time:
Means of arrival:
Comments:
[facility] 1 4 docume nted in this encounter Plan of Treatment +--------+ + + + + | Date | Type | Specialty | Care Team | Description | +--------+ + + + + | 10/16/ | Anti-coag | Anticoagulation | Brittany Zaragzoa | | | 2020 | visit | | [address] | | | | | | [address], | | | | | | [place] [address] | | | | | | [phone] | | | | | | | [...] (500), | | | | | | department editor SANYA DUPONT (8) | | | | | | on 05/20/2013 6:43:53 AM | | | | | | | | | | + + + + + + + + | Specimen | + + | | + + + + + | Narrative | Performed At | + + + | Historically converted procedure from [facility] environment | EXTERNAL LAB | + [...] (500), | | | | | | department editor SANYA DUPONT (8) | | | [...] | | | | | performed at [facility];[address] | | | | | | [address];[place] | | | | | | [address] | | | | + + + [...] EXTERNAL | | | | performed at [facility];[address] | | LAB | | | | [address];[place] | | | | | | [address] | | | | + + + + + + | Non- | 4.52Comment: Testing | 4.20 - 5.70 | EXTERNAL | | | Red Blood | performed at [facility];888 | M/uL | LAB | | | Cells | [address];[place] | | | | | Counted | [address] | | | | + + + + + + | Hemoglobin | 12.2 (L)Comment: Testing | 13.2 - 17.0 | EXTERNAL | | | | performed at [facility];888 | g/dL | LAB | | | | [address];[place] | | | | | | [address] | | | | + + + + + + | Hematocrit, | 37.5 (L)Comment: Testing | 39.0 - 50.0 % | EXTERNAL | | | POC | performed at [facility];[address] | | LAB | | | | [address];[place] | | | | | | [address] | | | | + + + + + + | MCV | 82.9Comment: Testing | 80.0 - 100.0 fl | EXTERNAL | | | | performed at [facility];[address] | | LAB | | | | [address];[place] | | | | | | [address] | | | | + + + + + + | MCH | 27.0Comment: Testing | 27.0 - 34.0 pg | EXTERNAL | | | | performed at [facility];[address] | | LAB | | | | [address];[place] | | | | | | [address] | | | | + + + + + + | MCHC | 32.6Comment: Testing | 32.0 - 35.5 | EXTERNAL | | | | performed at [facility];888 | g/dL | LAB | | | | [address];[place] | | | | | | [address] | | | | + + + + + + | RDW-CV | 45.5Comment: Testing | 37 - 53 fl | EXTERNAL | | | | performed at [facility];[address] | | LAB | | | | [address];[place] | | | | | | [address] | | | | + + + + + + | Platelet | 306Comment: Testing | 150 - 400 K/uL | EXTERNAL | | | Count | performed at [facility];[address] | | LAB | | | Plasma | [address];[place] | | | | | | [address] | | | | + + + + + + | MPV | 7.4Comment: Testing | fl | EXTERNAL | | | | performed at [facility];[address] | | LAB | | | | [address];[place] | | | | | | [address] | | | | + + + + + + | Differentia | AUTOMATEDComment: | | EXTERNAL | | | l Type | Testing performed at | | LAB | | | | [facility];[address];[place] [address] | | | | + + + + + + | % Segmented | 55.1Comment: Testing | % | EXTERNAL | | | | performed at [facility];[address] | | LAB | | | Neutrophils | [address];[place] | | | | | | [address] | | | | + + + + + + | % | 33.0Comment: Testing | % | EXTERNAL | | | Lymphocytes | performed at [facility];[address] | | LAB | | | | [address];[place] | | | | | | [address] | | | | + + + + + + | % Monocytes | 8.7Comment: Testing | % | EXTERNAL | | | | performed at [facility];[address] | | LAB | | | | [address];[place] | | | | | | [address] | | | | + + + + + + | % | 2.8Comment: Testing | % | EXTERNAL | | | Eosinophils | performed at [facility];[address] | | LAB | | | | [address];[place] | | | | | | [address] | | | | + + + + + + | % Basophils | 0.4Comment: Testing | % | EXTERNAL | | | | performed at [facility];[address] | | LAB | | | | [address];[place] | | | | | | [address] | | | | + + + + + + | Absolute | 5.8Comment: Testing | 1.9 - 7.4 K/uL | EXTERNAL | | | Segmented | performed at [facility];[address] | | LAB | | | Neutrophils | [address];[place] | | | | | | [address] | | | | + + + + + + | Absolute | 3.5Comment: Testing | 1.0 - 3.9 K/uL | EXTERNAL | | | Lymphocytes | performed at [facility];[address] | | LAB | | | | [address];[place] | | | | | | [address] | | | | + + + + + + | Absolute | 0.9 (H)Comment: Testing | 0 - 0.8 K/uL | EXTERNAL | | | Monocytes | performed at [facility];[address] | | LAB | | | | [address];[place] | | | | | | [address] | | | | + + + + + + | Absolute | 0.3Comment: Testing | 0 - 0.5 K/uL | EXTERNAL | | | Eosinophils | performed at [facility];[address] | | LAB | | | | [address];[place] | | | | | | [address] | | | | + + + + + + | Absolute | 0.0Comment: Testing | 0 - 0.1 K/uL | EXTERNAL | | | Basophils | performed at [facility];[address] | | LAB | | | | [address];[place], [place] | | | | | | [address] | | | | + + + [...] EXTERNAL | | | | performed at [facility];[address] | | LAB | | | | [address];[place] | | | | | | [address] | | | | + + + [...] EXTERNAL | | | | performed at [facility];[address] | mmol/L | LAB | | | | [address];[place] | | | | | | [address] | | | | + + + + + + | K | 4.1Comment: Testing | 3.5 - 4.9 | EXTERNAL | | | | performed at [facility];[address] | mmol/L | LAB | | | | [address];[place] | | | | | | [address] | | | | + + + + + + | Cl | 103Comment: Testing | 99 - 109 mmol/L | EXTERNAL | | | | performed at [facility];[address] | | LAB | | | | [address];[place] | | | | | | [address] | | | | + + + + + + | CO2 | 28Comment: Testing | 23 - 32 mmol/L | EXTERNAL | | | | performed at [facility];[address] | | LAB | | | | [address];[place] | | | | | | [address] | | | | + + + + + + | Anion Gap | 9Comment: Testing | 5 - 20 mmol/L | EXTERNAL | | | | performed at [facility];[address] | | LAB | | | | [address];[place] | | | | | | [address] | | | | + + + + + + | Glucose, | 182 (H)Comment: Testing | 65 - 99 mg/dL | EXTERNAL | | | Fasting | performed at [facility];[address] | | LAB | | | | [address];[place] | | | | | | [address] | | | | + + + + + + | BUN | 22Comment: Testing | 8 - 25 mg/dL | EXTERNAL | | | | performed at [facility];[address] | | LAB | | | | [address];[place] | | | | | | [address] | | | | + + + + + + | Creatinine | 1.45 (H)Comment: Testing | 0.70 - 1.30 | EXTERNAL | | | | performed at [facility];[address] | mg/dL | LAB | | | | [address];[place] | | | | | | [address] | | | | + + + + + + | BUN/Creatin | 15Comment: Testing | | EXTERNAL | | | ine Ratio | performed at [facility];[address] | | LAB | | | | [address];[place] | | | | | | [address] | | | | + + + + + + | Calcium | 8.9Comment: Testing | 8.5 - 10.2 | EXTERNAL | | | | performed at [facility];[address] | mg/dL | LAB | | | | [address];[place] | | | | | | [address] | | | | + + + + + + | Protein, | 7.5Comment: Testing | 6.3 - 8.2 g/dL | EXTERNAL | | | Total | performed at [facility];[address] | | LAB | | | | [address];[place] | | | | | | [address] | | | | + + + + + + | Albumin | 3.3 (L)Comment: Testing | 3.6 - 5.0 g/dL | EXTERNAL | | | | performed at [facility];[address] | | LAB | | | | [address];[place] | | | | | | [address] | | | | + + + + + + | Globulin | 4.2Comment: Testing | 1.3 - 4.9 g/dL | EXTERNAL | | | | performed at [facility];[address] | | LAB | | | | [address];[place] | | | | | | [address] | | | | + + + + + + | A/G Ratio | 0.8 (L)Comment: Testing | 1.0 - 2.4 | EXTERNAL | | | | performed at [facility];[address] | | LAB | | | | [address];[place] | | | | | | [address] | | | | + + + + + + | Bilirubin | 0.3Comment: Testing | 0.1 - 1.5 mg/dL | EXTERNAL | | | Total | performed at [facility];[address] | | LAB | | | | [address];[place] | | | | | | [address] | | | | + + + + + + | ALP, | 83Comment: Testing | 35 - 115 U/L | EXTERNAL | | | External | performed at [facility];[address] | | LAB | | | | [address];[place] | | | | | | [address] | | | | + + + + + + | AST | 21Comment: Testing | 10 - 45 U/L | EXTERNAL | | | | performed at [facility];[address] | | LAB | | | | [address];[place] | | | | | | [address] | | | | + + + + + + | ALT | 24Comment: Testing | 10 - 65 U/L | EXTERNAL | | | | performed at [facility];[address] | | LAB | | | | [address];[place] | | | | | | [address] | | | | + + + [...] | | | | | | at [facility];[address];[place] [address] | | | | + + + [...] EXTERNAL | | | | performed at [facility];[address] | | LAB | | | | [address];[place] | | | | | | [address] | | | | + + + + + + | RBC, UA | 0-2Comment: Testing | 0 - 2 /hpf | EXTERNAL | | | | performed at [facility];[address] | [address];[place] | | | | | | [id number] | | | | + + + + + + | Epithelial | 1-5Comment: Testing | /lpf | EXTERNAL | | | Cells | performed at [facility];[address];[place] | | | | | | [phone] | | | | + + + + + + | Bacteria, | TRACE (A)Comment: | | EXTERNAL | | | UA | Testing performed at | | LAB | | | | [facility];[address] | | | | | [facility];[place] [address] | | | | + + + [...]
--- OUTSIDE RECORDS SUMMARY | ~2019-10-12 | XMS | Encounter Summary ---
Demographics + + + | Address | [address] | | | [place] [address] | + + + | Home Phone [...] + | Sammi Kohler | ECON | [place] [address] | | + + + + + Care Team Providers + +------+ + | Care Middle [employer] Band Teacher Name | Role | Phone | + +------+ + PCP | Unavailable | + +------+ + Encounter Details +--------+ + + + + | Date | Type | Department | Care Team | Description | +--------+ + + + + | 10/05/ | Emergency | [facility] | Kirill Hardy, | Closed head injury, | | 2014 - | | MEDICAL CENTER | MD [address] | initial encounter; | | | | EMERGENCY CENTER | [place] [address] | Cervical strain, | | 10/06/ | | [address] | [phone] | initial encounter; | | 2013 | | [place], [place] | | Thoracic myofascial | | | | [address] | | strain, initial | | | | [phone] | | encounter; Fall, | | | [...] 10/06/131838 Date of Service: 10/06/131837 Status: Signed Spice Fumigator: QUINN Tyson (Control Operator) LARA called patient back, patient confirmed he still resides at [facility], and that he has lear ronald to use Dial a Ride. He still sees Dr. Gutiérrez but says that it will take 3 weeks for an appt. CM presented urgent care options to patient. Patient said the he has not yet mad e an appointment at [facility], CM encouraged OP follow up as patient indicated that he is not sure his anxiety medications are "working." onver ivana Rodríguezaction, Provider Unknown - 10/06/2013 12:19 PM PDT Case Management by QUINN Tyson at 10/06/139 Author: QUINN Tyson Service: (none) Author Type: (none) Filed: 10/06/13 1220 Date of Service: 10/06/131218 Status: Signed Spice Fumigator: QUINN Tyson (Control Operator) LARA unable to see patient when he was in ED yesterday, patient is in the [facility]. LARA ayala alled patient at [phone]. Patient answered the phone but requested that CM call him back l ater today. CM will attempt follow up. onver ivana Badillo, Provider Unknown - 10/06/2013 12:16 PM PDT Case Management by QUINN Tyson at 10/06/13 1216 Author: QIUNN Tyson Service: (none) Author Type: (none) Filed: 10/06/139 Date of Service: 10/06/131215 Status: Signed Spice Fumigator: QUINN Tyson (Control Operator) COLTON alert rec'd for this patient, 26 ED visits < 12 months. [facility] guidelines are a s follows: Care Recommendation: Norah has a printed Crisis Plan at the Assisted Living Facility that he is to follow before coming to the ED for non life-threatening issues. Please discuss with Norah when he present s to the ED The following guidelines were formulated by the ED Care Guidelines Committee of the [facility] Consistent Care Program on May 21, 2013. No controlled substances should be administered in the ED or prescribed from the ED for sub jective pain. Past Medical & Surgical History: Primary Care Provider (PCP) is Dr. Gutiérrez at . Notify PCP if giving any a dditional narcotics for objective findings. PCP supports enrollment in the [facility] nt [facility] Program. Medical History: 1. Diabetes-He is on a sliding scale after meals, routine insulin before meals and takes La ntus at night. A1C April, = 7.9%. He was referred to an warehouse associate in February, 4. 2. COPD- He take [...] the GE junction (requiring managem ent in [place] at ), rectal ulcer and internal hemorrhoids. 9. Hernia- He has been referred to Dr. Vargas. Problem List: He needs to make regular visits to see his PCP in light of his chronic conditions. He estab lished in February, but he never returned as requested. This patient is developmentally delayed and has multiple chronic conditions and providers. He would benefit from having a Portable Canteen Operator assist him in coordinating his care. History of Behavioral Health Conditions: He has depression and anxiety- This is managed by his PCP. He takes Paxil and abilify. He has been referred to [facility] in February. According to [facility], he never establish ed care. Please follow-up with him and assist him in making another appointment to establish care. Pain/Opioid Agreement: Norah has an order at the Assisted Living Facility for hydrocodone as needed. He does not h ave a diagnosis of chronic pain. Please see TRAFFIC PERSONNEL SUPERVISOR for prescribing history. Social History or Identified Risk: - Fall Risk - Non adherence - Transportation Issues Social History: Norah lives at [facility] . He may require another level of care given the number of ED visits at enrollment (22 in the last year)-please contact his [facility] Ca se Bath Solution Maker (Fermin Preston) to discuss. Norah is developmentally delayed- Patient may benefit from having someone with him at his d octor's appointments. He has applied for Dial-A-Ride services (April,) Applied for a Health Home for this client through [facility]- please review Provider One to determ ine if one has been assigned. Additional Information: This patient is case managed by the [facility]. Please contact the jtac at your hospital for any immediate or [...] 10/05/132256 Date of Service: 10/05/132256 Status: Signed Spice Fumigator: Jenn Moralez RN (Registered Nurse) Bed: 1107 Expected date: Expected time: Means of arrival: Comments: Kirill Teixeira MD - 10/05/2013 10:53 PM PDT ED Provider Notes by Kirill Hardy MD at 10/05/13 Author: Kirill Hardy MD Service: (none) Author Type: Physician Filed: 10/06/13 7687 Date of Service: 10/05/132252 Status: Signed Spice Fumigator: Kirill Hardy MD (Physician) [facility] Department of Emergency Medicine History of Present Illness Patient Identification Norah Gr is a 57 y.o. male. Patient information was obtained from patient. History/Exam limitations: none. Patient presented to the Emergency Department [place] [address] Room:[facility] TOI/TOI Chief Complaint Chief Complaint Patient presents [...] - CHOLECYSTECTOMY; Surgeon: Jevon Vargas DO; Location: [facility] MAIN OR; Service: General; Laterality: N/A; Abdominal surgery Cholecystectomy Skin cancer excision 10/10/2012 Procedure: EXCISION - SKIN CANCER; Surgeon: Sy Fierro MD; Location: [facility] MAIN OR ; Service: Plastics; Laterality: Left; upper arm and upper back w/frozen section Esophagogastroduodenoscopy 03/03/2013 Procedure: ESOPHAGOGASTRODUODENOSCOPY; Surgeon: Howie Gibson MD; Location: [facility] ENDOSCOPY; S ervice: Gastroenterology; Laterality: N/A; Colonoscopy 03/04/2013 Procedure: COLONOSCOPY; Surgeon: Howie Gibson MD; Location: [facility] ENDOSCOPY; Service: Gastroe nterology; Laterality: N/A; Upper gastrointestinal endoscopy Skin biopsy Hernia repair 07/03/2013 Procedure: LAPAROSCOPIC - HERNIA - INCISIONAL; Surgeon: Jevon Vargas DO; Location: [facility] MAIN OR; Service: General; [...] the skin nightly. Ye s Historical Provider tnvyyzyue-wroxlnyv-qigofeoma hydroxide-simethicone Take 40 mLs by mouth daily [...] Normal motor exam. Normal Sensory exam. Normal tyesqq-py-fom e and zkav-ym-bgar exam. No pronator drift. No neglect. Medical [...] 1 tablet (1 tablet Oral Given 10/06/13 0057) Laboratory Evaluation Labs Reviewed [facility] CARD PANEL W/O [...] 06 2013 12:15AM Referring Provider Line: [phone] ID: [id number] Narrative: EXAM: CT HEAD AND [...] Documented by Kirill Hardy MD (10/06/13 00:15:01, [facility] Emergency Department, Emergency Medicine) Degenerative changes present, no fracture, no subluxation. ED Diagnoses Final diagnoses Closed head injury, initial encounter Cervical strain, initial encounter Thoracic myofascial strain, initial encounter Fall, initial encounter Disposition: ED Disposition Discharge Condition at discharge: Stable Follow-up Information Follow up With Details Comments Contact Info Jerrell Gutiérrez DO In 3 days [address] [address] [facility] Emergency Department If symptoms worsen, As needed [address] [facility] [address] Discharge Medications: Discharge Medication List as of 10/06/2013 12:52 AM Additional Documentation Procedures Attending Note: Documentation assistance provided by Divya Messer (Scribe). Information recorded by the scribe has been reviewed and validated by . I aruna laughlin with its contents. Kirill Hardy MD, [facility] Kirill Hardy MD 10/06/13 0623 documente d in this encounter Plan of Treatment +--------+ + + + + | Date | Type | Specialty | Care Team | Description | +--------+ + + + + | 10/16/ | Anti-coag | Anticoagulation | Brittany Zaragoza | | | 2019 | visit | | [address] | | | | | | [address] [place], | | | | | | [place] [address] | | | | | | [phone] | | | | | | | [...] | | | | performed at [facility];[address] | | LAB | | | | [address];[place] | | | | | | [address] | | | | + + + + + -+ | Non- | 4.76Comment: Testing | 4.20 - 5.70 | EXTERNAL | | | Red Blood | performed at [facility];[address] | M/uL | LAB | | | Cells | [address];[place] | | | | | Counted | [address] | | | | + + + + + -+ | Hemoglobin | 13.1 (L)Comment: Testing | 13.2 - 17.0 | EXTERNAL | | | | performed at [facility];[address] | g/dL | LAB | | | | [address];[place] | | | | | | [address] | | | | + + + + + -+ | Hematocrit, | 38.0 (L)Comment: Testing | 39.0 - 50.0 % | EXTERNAL | | | POC | performed at [facility];[address] | | LAB | | | | [address];[place] | | | | | | [address] | | | | + + + + + -+ | MCV | 79.7 (L)Comment: Testing | 80.0 - 100.0 fl | EXTERNAL | | | | performed at [facility];[address] | | LAB | | | | [address];[place] | | | | | | [address] | | | | + + + + + -+ | MCH | 27.5Comment: Testing | 27.0 - 34.0 pg | EXTERNAL | | | | performed at [facility];[address] | | LAB | | | | [address];[place] | | | | | | [address] | | | | + + + + + -+ | MCHC | 34.5Comment: Testing | 32.0 - 35.5 | EXTERNAL | | | | performed at [facility];[address] | g/dL | LAB | | | | [address];[place] | | | | | | [address] | | | | + + + + + -+ | RDW-CV | 41.1Comment: Testing | 37 - 53 fl | EXTERNAL | | | | performed at [facility];[address] | | LAB | | | | [address];[place] | | | | | | [address] | | | | + + + + + -+ | Platelet | 265Comment: Testing | 150 - 400 K/uL | EXTERNAL | | | Count | performed at [facility];[address] | | LAB | | | Plasma | [address];[place] | | | | | | [address] | | | | + + + + + -+ | MPV | 7.4Comment: Testing | fl | EXTERNAL | | | | performed at [facility];[address] | | LAB | | | | [address];[place] | | | | | | [address] | | | | + + + + + -+ | Differentia | AUTOMATEDComment: | | EXTERNAL | | | l Type | Testing performed at | | LAB | | | | C;[address];[place] [address] | | | | + + + + + -+ | % Segmented | 56.6Comment: Testing | % | EXTERNAL | | | | performed at [facility];[address] | | LAB | | | Neutrophils | [address];[place] | | | | | | [address] | | | | + + + + + -+ | % | 31.5Comment: Testing | % | EXTERNAL | | | Lymphocytes | performed at [facility];[address] | | LAB | | | | [address];[place] | | | | | | [address] | | | | + + + + + -+ | % Monocytes | 8.5Comment: Testing | % | EXTERNAL | | | | performed at [facility];[address] | | LAB | | | | [address];[place] | | | | | | [address] | | | | + + + + + -+ | % | 2.9Comment: Testing | % | EXTERNAL | | | Eosinophils | performed at [facility];[address] | | LAB | | | | [address];[place] | | | | | | [address] | | | | + + + + + -+ | % Basophils | 0.5Comment: Testing | % | EXTERNAL | | | | performed at [facility];[address] | | LAB | | | | [address];[place] | | | | | | [address] | | | | + + + + + -+ | Absolute | 5.6Comment: Testing | 1.9 - 7.4 K/uL | EXTERNAL | | | Segmented | performed at [facility];[address] | | LAB | | | Neutrophils | [address];[place] | | | | | | [address] | | | | + + + + + -+ | Absolute | 3.1Comment: Testing | 1.0 - 3.9 K/uL | EXTERNAL | | | Lymphocytes | performed at [facility];[address] | | LAB | | | | [address];[place] | | | | | | [address] | | | | + + + + + -+ | Absolute | 0.8Comment: Testing | 0 - 0.8 K/uL | EXTERNAL | | | Monocytes | performed at [facility];[address] | | LAB | | | | [address];[place] | | | | | | [address] | | | | + + + + + -+ | Absolute | 0.3Comment: Testing | 0 - 0.5 K/uL | EXTERNAL | | | Eosinophils | performed at [facility];[address] | | LAB | | | | [address];[place] | | | | | | [address] | | | | + + + + + -+ | Absolute | 0.1Comment: Testing | 0 - 0.1 K/uL | EXTERNAL | | | Basophils | performed at [facility];[address] | | LAB | | | | [address];[place] | | | | | | [address] | | | | + + + + + -+ | Na | 140Comment: Testing | 135 - 143 | EXTERNAL | | | | performed at [facility];[address] | mmol/L | LAB | | | | [address];[place] | | | | | | [address] | | | | + + + + + -+ | K | 3.7Comment: SLT | 3.5 - 4.9 | EXTERNAL | | | | HEMOLYSISTesting | mmol/L | LAB | | | | performed at [facility];[address] | | | | | | [address];[place] | | | | | | [address] | | | | + + + + + -+ | Cl | 105Comment: Testing | 99 - 109 mmol/L | EXTERNAL | | | | performed at [facility];[address] | | LAB | | | | [address];[place] | | | | | | [address] | | | | + + + + + -+ | CO2 | 27Comment: Testing | 23 - 32 mmol/L | EXTERNAL | | | | performed at [facility];[address] | | LAB | | | | [address];[place] | | | | | | [address] | | | | + + + + + -+ | Anion Gap | 11Comment: Testing | 5 - 20 mmol/L | EXTERNAL | | | | performed at [facility];[address] | | LAB | | | | [address] | | | | | | [address] | | | | + + + + + -+ | Glucose, | 233 (H)Comment: Testing | 65 - 99 mg/dL | EXTERNAL | | | Fasting | performed at [facility];[address] | | LAB | | | | [address];[place] | | | | | | [address] | | | | + + + + + -+ | BUN | 17Comment: Testing | 8 - 25 mg/dL | EXTERNAL | | | | performed at [facility];[address] | | LAB | | | | [address] | | | | | | [address] | | | | + + + + + -+ | Creatinine | 1.12Comment: Testing | 0.70 - 1.30 | EXTERNAL | | | | performed at [facility];[address] | mg/dL | LAB | | | | [address];[place] | | | | | | [address] | | | | + + + + + -+ | BUN/Creatin | 15Comment: Testing | | EXTERNAL | | | ine Ratio | performed at [facility];[address] | | LAB | | | | [address] | | | | | | [address] | | | | + + + + + -+ | Calcium | 8.2 (L)Comment: Testing | 8.5 - 10.2 | EXTERNAL | | | | performed at [facility];[address] | mg/dL | LAB | | | | [address] | | | | | | [address] | | | | + + + + + -+ | Protein, | 6.8Comment: Testing | 6.3 - 8.2 g/dL | EXTERNAL | | | Total | performed at [facility];[address] | | LAB | | | | [address] | | | | | | [address] | | | | + + + + + -+ | Albumin | 3.2 (L)Comment: Testing | 3.6 - 5.0 g/dL | EXTERNAL | | | | performed at [facility];[address] | | LAB | | | | [address];[place] | | | | | | [address] | | | | + + + + + -+ | Globulin | 3.6Comment: Testing | 1.3 - 4.9 g/dL | EXTERNAL | | | | performed at [facility];[address] | | LAB | | | | [address] | | | | | | [address] | | | | + + + + + -+ | A/G Ratio | 0.9 (L)Comment: Testing | 1.0 - 2.4 | EXTERNAL | | | | performed at [facility];[address] | | LAB | | | | [address] | | | | | | [address] | | | | + + + + + -+ | Bilirubin | 0.3Comment: Testing | 0.1 - 1.5 mg/dL | EXTERNAL | | | Total | performed at [facility];[address] | | LAB | | | | [address] | | | | | | [address] | | | | + + + + + -+ | ALP, | 90Comment: Testing | 35 - 115 U/L | EXTERNAL | | | External | performed at [facility];[address] | | LAB | | | | [address] | | | | | | [address] | | | | + + + + + -+ | AST | 28Comment: SLT | 10 - 45 U/L | EXTERNAL | | | | HEMOLYSISTesting | | LAB | | | | performed at [facility];[address] | | | | | | [address];[place] | | | | | | [address] | | | | + + + + + -+ | ALT | 25Comment: Testing | 10 - 65 U/L | EXTERNAL | | | | performed at [facility];[address] | | LAB | | | | [address];[place] | | | | | | [address] | | | | + + + [...] | | | | | at [facility];[address] [facility] | | | | | | [address];[place] [address] | | | | + + + + + -+ | CK, Total | 201Comment: SLT | 55 - 400 U/L | EXTERNAL | | | | HEMOLYSISTesting | | LAB | | | | performed at [facility];[address] | | | | | | [address];[place] | | | | | | [address] | | | | + + + [...] | | | | performed at [facility];[address] | | | | | | [address];[place] | | | | | | [address] | | | | + + + + + -+ | aPTT, | 22 (L)Comment: Testing | 23 - 32 seconds | EXTERNAL | | | Patient | performed at [facility];[address] | | LAB | | | | [address];[place] | | | | | | [address] | | | | + + + + + -+ | CK-MB | 4.4 (H)Comment: Testing | 0.5 - 3.6 ng/mL | EXTERNAL | | | | performed at [facility];[address] | | LAB | | | | [address];[place] | | | | | | [address] | | | | + + + [...] Oct 06 2013 12:15AM Referring Provider Line: [phone] ID: [id number] | | + + + [...] 2013 12:15AM Referring Provider Line: | | [phone] ID: [id number] | |C1-C2: Degenerative changes between [...] 06 2013 12:15AM Referring Provider Line: [phone] ID: [id number] | + + XR Thoracic [...] At | + + + | NORAH M GR 1955 XR THORACIC SPINE 2 VIEW [...] Conversion - 09/21/2018 3:31 PM PDT NORAH GR1955XR THORACIC | | SPINE 2 VIEW10/05/2013 [...] | | Fingerstick | performed at [facility];[address] | | LAB | | | | [address];[place], [place] | | | | | | [address] | | | | + + + [...]
--- OUTSIDE RECORDS SUMMARY | ~2019-10-12 | XMS | Encounter Summary ---
Demographics + + + | Address | [address] | | | [place] [address] | + + + | Home Phone [...] + | Sammi Kohler | ECON | [place] [address] | | + + + + + Care Team Providers + +------+ + | Care Hot Pond Operator Name | Role | Phone | + +------+ + | Mireya Pack NP | PCP | | + +------+ + Reason for Visit + +--------+ + | Reason | Onset | Comments | | | Date | | + +--------+ + | Medical Problem | 11/08/ | Humalog not covered | | | 2019 | | + +--------+ + Encounter Details +--------+ + + + + | Date | Type | Department | Care Team | Description | +--------+ + + + + | 11/08/ | Telephone | [facility] | Mel Morton, | Medical Problem | | 2019 | | [facility] [address] | Computer Systems Manager | (Renzo not | | | | [address] | | covered) | | | | [place], [place] | | | | | | [address] | | | | | | [phone] | | | +--------+ + + + [...] Miscellaneous Notes Telephone Encounter - Mel Morton, Computer Systems Manager - 11/08/2018 11:11 AM PDTCalled pharmacy and spoke with pharmacist and advised of PCP notes. Pharmacist stated he would glass ge to Novolog. 11: 12 AM PDTTelephone Encounter - Mireya Pack NP - 11/08/2018 10:55 AM PDTPlease call req uest change to novolog same instructions Electronically signed by Mireya Pack NP at 04/2018 10:56 AM PDTTelephone Encounter - Mel Morton Computer Systems Manager - 11/08/2018 9:58 AM PDTReceived fax from [...] | | | | | [address] [place], | | | | | | [place] [address] | | | | | | [phone] | | | | | | | | +--------+ + + + + documented as of this encounter Visit Diagnoses Not on filedocumented in this encounter"
--- OUTSIDE RECORDS SUMMARY | ~2019-10-12 | XMS | Encounter Summary ---
Demographics + + + | Address | [address] | | | [place] [address] | + + + | Home Phone [...] + | Sammi Kohler | ECON | [place] [address] | | + + + + + Care Team Providers + +------+ + | Care Therapy Technician Name | Role | Phone | + +------+ + PCP | Unavailable | + +------+ + Encounter Details +--------+ + + + + | Date | Type | Department | Care Team | Description | +--------+ + + + + | 02/27/ | Emergency | [facility] | Jose Flor, | Left-sided face | | 2014 | | [facility] | [address] | pain; Left arm pain; | | | | EMERGENCY CENTER | [place] [address] | Left leg pain; | | | | [address] | [phone] | Hypertension; | | | | [place], [place] | | Hyperglycemia | | | | [address] | | | | | | [phone] | | | +--------+ + + + [...] ED Notes Conversion Transaction, Provider Unknown - 02/27/2013 3:23 AM PSTFormatting of this note m ight be different from the original. ED Notes by Kenny Holliday RN at 02/27/13322 Author: Kenny Holliday RN Service: (none) Author Type: Registered Nurse Filed: 02/27/13330 Date of Service: 02/27/13322 Status: Signed Hoop Punch Operator Helper: Kenny Holliday RN (Registered Nurse) Patient c/o onset left cheek pain, No motor deficits present. MD Notifed Kenny Holliday RN 02/27/13 0331 onver ivana Transaction, Provider Unknown - 02/27/2013 2:57 AM PST ED Notes by Renetta Goode RN at 02/27/13256 Author: Renetta Goode RN Service: (none) Author Type: Registered Nurse Filed: 02/27/13256 Date of Service: 02/27/13256 Status: Signed Hoop Punch Operator Helper: Renetta Goode RN (Registered Nurse) Pt placed on diagnostic cardiac sonographer. Tele notified. Renetta Goode RN 02/27/13256 Jose Rios MD - 02/27/2013 2:47 AM PSTFormatting of this note might be different from the o riginal. ED Provider Notes by Jose Flor MD at 02/27/13246 Author: Jose Flor MD Service: (none) Author Type: Physician Filed: 02/27/13 0430 Date of Service: 02/27/13246 Status: Signed Hoop Punch Operator Helper: Jose Flor MD (Physician) [facility] Department of Emergency Medicine History of Present Illness Patient Identification Kevyn Guzman is a 57 y.o. male. Patient information was obtained from patient and EMS personnel. History/Exam limitations: none. Patient presented to the Emergency Department by: [facility] 1723 Chief Complaint Chief Complaint Patient presents with Abdominal Pain left sided Arm Pain left The patient complains of left arm, chest, leg pain. Onset of symptoms was today, with a con stonat course since that time. The symptoms are described to be of moderate severity. The patient describes the quality and location of the symptoms as the following: pains left arm and left side all the way down left leg. The patient also complains of no injuries. Care pr ior to arrival consisted of 3 nitro by staff at the home, with no relief. PCP: TAINA WASHBURN Past [...] Fierro MD; Location: [facility] OR ; Service: Plastics; Laterality: [...] psych: Negative for: fainting, head injury, seizure, Endocrine/Heme/Lymph: Negative for: swollen lymph nodes, easy bruising All systems reviewed and otherwise negative Physical Exam BP 215/95 | Pulse 61 | Temp 97.5 F (36.4 C) (Oral) | Ht 1.753 m (5' 9") | Wt 106.142 kg (234 lb) | BMI 34.54 kg/m2 | SpO2 97% Vital signs reviewed and significant for hypertension Pulse Oximetry interpretation: Normal General: Alert, in no apparent distress Eyes: Normal inspection, pupils equal and round, non-icteric ENT: Ears normal Nose normal Pharynx normal Neck: Normal inspection Supple No lymphadenopathy No meningismus Cardiovascular: Rate and rhythm normal No murmurs Respiratory: Breath sounds normal bilaterally Abdomen: Soft, non-tender, non-distended No guarding or rebound Genitourinary: Deferred Rectal exam: Deferred Back: Normal inspection Extermiteis: Mild bilateral LE edema, no erythema, no injuries. Skin: Color normal Warm and dry No rash Neuro: No motor deficit, but generalized weakness. No sensory deficit mild confusion Medical Decision Making and Emergency Department Course Chest pain General The patient presents with a chief complaint of left side arm, leg, and chest discomfort. T he list of possible emergent diagnoses that the patient requires an evaluation for includes (but is not limited to) hypercoagulable state, anemia, dehydration, renal failure, electroly te changes, unstable angina, aortic dissection, acute myocardial ischemia, arrhythmia, conge stive heart failure, pericarditis, effusions, pulmonary edema and anxiety with hyperventilat ion. I feel that laboratory testing and further diagnostic testing is necessary to ensure t hat there is no acute emergent cause of the symptoms. I have ordered a 12 lead EKG, CXR, CB C with diff, CMP, INR, CK, CKMB, and troponin. Patient will be placed on the cardiac monito r to ensure no life threatening arrhythmia develops and will be given supplemental oxygen vi a nasal cannula. ED Department Course 3:22. Now patient only has left facial pain. Will give dose of hydrocodone. 3:49. Patient is sleeping now, seems very comfortable.. The patient will follow up with t [facility] doctor for further outpatient treatment as indicated. Agrees to return to the ED if sy mptoms worsen or if any other concerns. Blood pressure has improved with oral dose of cloni dine. The patient has hypertension on presentation to emergency department. Causes of hypertensi on could include acute pain, anxiety, primary hypertension, uncontrolled hypertension, hyper tensive urgency, or hypertensive emergency. There are no signs of end organ damage at this time (acute IA, aortic dissection, acute CVA, etc) and no indication for emergent reduction in the blood pressure in the emergency department. The patient will follow up with their ks imary physician for recheck of the blood pressure and outpatient management. Records Reviewed Old medical records. Recent ED visits for dizziness, abdominal pain, etc. 17 total ER vis its in the last year. Anxiety and depressive history. Laboratory Evaluation Labs Reviewed [facility] [place] W/O TRP (ED ONLY) - Abnormal; Notable for the following: GLUCOSE 232 (*) Testing performed at [facility] [place] [address] Albumin 3.5 (*) Testing performed at [facility] [place] [address] A/G 0.9 (*) Testing performed at [facility] [place] [address]709 MMB 3.7 (*) Testing performed at [facility];[address] [place] [address]64 All other components within normal limits POC CARDIAC TROPONIN Results Procedure Component Value Units Date/Time Cardiac Panel [[id number]] (Abnormal) Collected:02/27/13 0259 WBC 8.7 K/uL Updated:02/27/13 0344 RBC 4.91 M/uL HGB 13.3 g/dL HCT 40.1 % MCV 81.7 fl MCH 27.1 pg MCHC 33.2 g/dL RDW SD 46.4 fl PLT 259 K/uL MPV 7.7 fl DIFF TYPE AUTOMATED NEUTROPHILS 50.4 % LYMPHOCYTES 36.0 % MONOCYTES 9.4 % EOSINOPHILS 3.7 % BASOPHILS 0.5 % NEUTROPHILS ABS 4.4 K/uL LYMPHOCYTES ABS 3.1 K/uL MONOCYTES ABS 0.8 K/uL EOSINOPHILS ABS 0.3 K/uL BASOPHILS ABS 0.0 K/uL SODIUM 137 mmol/L POTASSIUM 3.6 mmol/L CHLORIDE 103 mmol/L CO2 27 mmol/L ANION GAP AGAP 10 mmol/L GLUCOSE 232 (H) mg/dL BUN 20 mg/dL CREATININE 1.18 mg/dL BUN/CREAT 17 CALCIUM 8.6 mg/dL TOTAL PROTEIN 7.4 g/dL Albumin 3.5 (L) g/dL GLOBULIN 3.9 g/dL A/G 0.9 (L) TBIL 0.3 mg/dL ALK PHOS 101 U/L AST 26 U/L ALT 32 U/L EGFR >60 mL/min/1.73m2 CPK 185 U/L INR 1.0 APTT 25 seconds MMB 3.7 (H) ng/mL CK-MB Index 2.0 Available Labs reviewed and interpreted by me. Radiology Evaluation Imaging Results None Available radiology studies reviewed and interpreted contemporaneously by me. EKG Interpretation Rhythm: Sinus Ventricular Rate: 58 CO Interval: Normal ST Segments: Normal Significant Q-waves: None Blocks: None Prolonged QT ED Diagnoses Final diagnoses Left-sided face pain Left arm pain Left leg pain Hypertension Hyperglycemia Disposition: ED Disposition Discharge Condition at discharge: Stable Follow-up Information Follow up With Details Comments Contact Info [place] [place] [address] [facility] [phone] Discharge Medications: New Prescriptions HYDROCODONE-ACETAMINOPHEN (NORCO) 5-325 MG PER TABLET Take 1 tablet by mouth every 6 (s ix) hours as needed for Pain. Additional Documentation Procedures Jose Flor MD 02/27/13 0430 onversion Transacti on, Provider Unknown - 02/27/2013 2:46 AM PSTFormatting of this note might be different fro m the original. ED Notes by Jenn Moralez RN at 02/27/13 0246 Author: Jenn Moralez RN Service: (none) Author Type: Registered Nurse Filed: 02/27/13 0246 Date of Service: 02/27/13245 Status: Signed Hoop Punch Operator Helper: Jenn Moralez RN (Registered Nurse) Bed:07
Expected date:
Expected time:
Means of arrival:
Comments:
[id number] docume nted in this encounter Plan of Treatment +--------+ + + + + | Date | Type | Specialty | Care Team | Description | +--------+ + + + + | 10/16/ | Anti-coag | Anticoagulation | Brittany Zaragoza | | | 2019 | visit | | [facility] [address] | | | | | | [facility] | | | | | | [place] [address] | | | | | | [phone] | | | | | | | | +--------+ + + + + documented as of this encounter Procedures + +--------+ + + + | Procedure Name | Priori | Date/Time | Associated Diagnosis | Comments | | | ty | | | | + +--------+ + + + | HISTORICAL LAB PANEL | Routin | 02/27/2013 | | Results for this | | RESULT | e | 2:59 AM | | procedure are in the | | | | PST | | results section. | + +--------+ + + + | ECG 12 LEAD | Routin | 02/27/2013 | | Results for this | | | e | 2:56 AM | | procedure are in the | | | | PST | | results section. | + +--------+ + + + documented in this encounter Results HISTORICAL LAB PANEL RESULT (02/27/2013 2:59 AM PST) + + + + + -+ | Component | Value | Ref Range | Performed | Pathologist | | | | | At | Signature | + + + + + -+ | WBC | 8.7Comment: Testing | 3.8 - 11.0 K/uL | EXTERNAL | | | | performed at [facility] | | LAB | | | | [address];[place] | | | | | | [address] | | | | + + + + + -+ | Non- | 4.91Comment: Testing | 4.20 - 5.70 | EXTERNAL | | | Red Blood | performed at [facility];[address] | M/uL | LAB | | | Cells | [address];[place] | | | | | Counted | [address] | | | | + + + + + -+ | Hemoglobin | 13.3Comment: Testing | 13.2 - 17.0 | EXTERNAL | | | | performed at [facility];[address] | g/dL | LAB | | | | [address];[place] | | | | | | [address] | | | | + + + + + -+ | Hematocrit, | 40.1Comment: Testing | 39.0 - 50.0 % | EXTERNAL | | | POC | performed at [facility];[address] | | LAB | | | | [address];[place] | | | | | | [address] | | | | + + + + + -+ | MCV | 81.7Comment: Testing | 80.0 - 100.0 fl | EXTERNAL | | | | performed at [facility];[address] | | LAB | | | | [address];[place] | | | | | | [address] | | | | + + + + + -+ | MCH | 27.1Comment: Testing | 27.0 - 34.0 pg | EXTERNAL | | | | performed at [facility];[address] | | LAB | | | | [address];[place] | | | | | | [address] | | | | + + + + + -+ | MCHC | 33.2Comment: Testing | 32.0 - 35.5 | EXTERNAL | | | | performed at [facility];[address] | g/dL | LAB | | | | [address];[place] | | | | | | [address] | | | | + + + + + -+ | RDW-CV | 46.4Comment: Testing | 37 - 53 fl | EXTERNAL | | | | performed at [facility];[address] | | LAB | | | | [address];[place] | | | | | | [address] | | | | + + + + + -+ | Platelet | 259Comment: Testing | 150 - 400 K/uL | EXTERNAL | | | Count | performed at [facility];[address] | | LAB | | | Plasma | [address];[place] | | | | | | [address] | | | | + + + + + -+ | MPV | 7.7Comment: Testing | fl | EXTERNAL | | | | performed at [facility];[address] | | LAB | | | | [address];[place] | | | | | | [address] | | | | + + + + + -+ | Differentia | AUTOMATEDComment: | | EXTERNAL | | | l Type | Testing performed at | | LAB | | | | [facility];[address];[place] [address] | | | | + + + + + -+ | % Segmented | 50.4 | % | EXTERNAL | | | | | | LAB | | | Neutrophils | | | | | + + + + + -+ | % | 36.0 | % | EXTERNAL | | | Lymphocytes | | | LAB | | + + + + + -+ | % Monocytes | 9.4 | % | EXTERNAL | | | | | | LAB | | + + + + + -+ | % | 3.7 | % | EXTERNAL | | | Eosinophils | | | LAB | | + + + + + -+ | % Basophils | 0.5 | % | EXTERNAL | | | | | | LAB | | + + + + + -+ | Absolute | 4.4 | 1.9 - 7.4 K/uL | EXTERNAL | | | Segmented | | | LAB | | | Neutrophils | | | | | + + + + + -+ | Absolute | 3.1 | 1.0 - 3.9 K/uL | EXTERNAL | | | Lymphocytes | | | LAB | | + + + + + -+ | Absolute | 0.8 | 0 - 0.8 K/uL | EXTERNAL | | | Monocytes | | | LAB | | + + + + + -+ | Absolute | 0.3 | 0 - 0.5 K/uL | EXTERNAL | | | Eosinophils | | | LAB | | + + + + + -+ | Absolute | 0.0 | 0 - [...] [place] | | | | | | [address] | | | | + + + + + -+ | K | 3.6Comment: Testing | 3.5 - 4.9 | EXTERNAL | | | | performed at [facility];[address] | mmol/L | LAB | | | | [address];[place] | | | | | | [address] | | | | + + + + + -+ | Cl | 103Comment: Testing | 99 - 109 mmol/L | EXTERNAL | | | | performed at [facility];[address] | | LAB | | | | [address];[place] | | | | | | [address] | | | | + + + + + -+ | CO2 | 27Comment: Testing | 23 - 32 mmol/L | EXTERNAL | | | | performed at [facility];[address] | | LAB | | | | [address];[place] | | | | | | [address] | | | | + + + + + -+ | Anion Gap | 10Comment: Testing | 5 - 20 mmol/L | EXTERNAL | | | | performed at [facility];[address] | | LAB | | | | [address];[place] | | | | | | [address] | | | | + + + + + -+ | Glucose, | 232 (H)Comment: Testing | 65 - 99 mg/dL | EXTERNAL | | | Fasting | performed at [facility];[address] | | LAB | | | | [address];[place] | | | | | | [address] | | | | + + + + + -+ | BUN | 20Comment: Testing | 8 - 25 mg/dL | EXTERNAL | | | | performed at [facility];[address] | | LAB | | | | [address];[place] | | | | | | [address] | | | | + + + + + -+ | Creatinine | 1.18Comment: Testing | 0.70 - 1.30 | EXTERNAL | | | | performed at [facility];[address] | mg/dL | LAB | | | | [address];[place] | | | | | | [address] | | | | + + + + + -+ | BUN/Creatin | 17Comment: Testing | | EXTERNAL | | | ine Ratio | performed at [facility];[address] | | LAB | | | | [address];[place] | | | | | | [address] | | | | + + + + + -+ | Calcium | 8.6Comment: Testing | 8.5 - 10.2 | EXTERNAL | | | | performed at [facility];[address] | mg/dL | LAB | | | | [address];[place] | | | | | | [address] | | | | + + + + + -+ | Protein, | 7.4Comment: Testing | 6.3 - 8.2 g/dL | EXTERNAL | | | Total | performed at [facility];[address] | | LAB | | | | [address];[place] | | | | | | [address] | | | | + + + + + -+ | Albumin | 3.5 (L)Comment: Testing | 3.6 - 5.0 g/dL | EXTERNAL | | | | performed at [facility];[address] | | LAB | | | | [address];[place] | | | | | | [address] | | | | + + + + + -+ | Globulin | 3.9Comment: Testing | 1.3 - 4.9 g/dL | EXTERNAL | | | | performed at [facility];[address] | | LAB | | | | [address];[place] | | | | | | [address] | | | | + + + + + -+ | A/G Ratio | 0.9 (L)Comment: Testing | 1.0 - 2.4 | EXTERNAL | | | | performed at [facility];[address] | | LAB | | | | [address];[place] | | | | | | [address] | | | | + + + + + -+ | Bilirubin | 0.3Comment: Testing | 0.1 - 1.5 mg/dL | EXTERNAL | | | Total | performed at [facility];[address] | | LAB | | | | [address];[place] | | | | | | [address] | | | | + + + + + -+ | ALP, | 101Comment: Testing | 35 - 115 U/L | EXTERNAL | | | External | performed at [facility];[address] | | LAB | | | | [address];[place] | | | | | | [address] | | | | + + + + + -+ | AST | 26Comment: Testing | 10 - 45 U/L | EXTERNAL | | | | performed at [facility];[address] | | LAB | | | | [address];[place] | | | | | | [address] | | | | + + + + + -+ | ALT | 32Comment: Testing | 10 - 65 U/L | EXTERNAL | | | | performed at [facility];[address] | | LAB | | | | [address];[place] | | | | | | [address] | | | | + + + [...] | | | | | [address];[place] [address] | | | | + + + + + -+ | CK, Total | 185Comment: Testing | 55 - 400 U/L | EXTERNAL | | | | performed at [facility];[address] | | LAB | | | | [address];[place] | | | | | | [address] | | | | + + + [...] [place];[address] | | | | | | [address];[place] | | | | | | [address] | | | | + + + + + -+ | aPTT, | 25Comment: Testing | 23 - 32 seconds | EXTERNAL | | | Patient | performed at [facility];[address] | | LAB | | | | [address];[place] | | | | | | [address] | | | | + + + + + -+ | CK-MB | 3.7 (H)Comment: Testing | 0.5 - 3.6 ng/mL | EXTERNAL | | | | performed at [facility];[address] | | LAB | | | | [address];[place], [place] | | | | | | [address] | | | | + + + + + -+ | CK-MB Index | 2.0Comment: CK INDEX | | EXTERNAL | | [...] + +---------+ + + ECG 12 lead (02/27/2013 2:56 AM PST) + + + + + + | Component | Value | Ref Range | Performed | Pathologist | | | | | At | Signature | + + + + + + | DIAGNOSIS: | Sinus | | EXTERNAL | | | | bradycardiaProlonged | | LAB | | | | QTAbnormal ECGWhen | | | | | | compared with ECG of | | | | | | 09-FEB-2013 | | | | | | 16:11,Nonspecific T wave | | | | | [...] | | | | | Confirmed by STEPHEN, | | | | | | ROSARIO ([id number]), editor producer Ashanti, | | | | | | Mel ([id number]) on | | | | | | 02/27/2013 6:24:53 PM | | | | + + + + + + + + | Specimen | + + | | + + + + + | Narrative | Performed At | + + + | Historically converted procedure from [facility] | EXTERNAL LAB | + + + + +---------+ + + | Performing | Address | City/State/Zipcode | Phone Number | | Organization | | | | + +---------+ + + | EXTERNAL LAB | | | | + +---------+ + + documented in this encounter Visit Diagnoses + + | Diagnosis | + + | Left-sided face pain Headache | + + | Left arm pain Pain in limb | + + | Left leg pain Pain in limb | + + | Hypertension Unspecified essential hypertension | + + | Hyperglycemia Other abnormal glucose | + + documented in this encounter
--- OUTSIDE RECORDS SUMMARY | ~2019-10-12 | XMS | Encounter Summary ---
Demographics + + + | Address | [address] | | | [place] [address] | + + + | Home Phone [...] + | Sammi Kohler | ECON | [place] [address] | | + + + + + Care Team Providers + +------+ + | Care Census Enumerator Name | Role | Phone | + +------+ + PCP | Unavailable | + +------+ + Encounter Details +--------+ + + + + | Date | Type | Department | Care Team | Description | +--------+ + + + + | 01/31/ | Emergency | [facility] | Norah Barker MD | Arm paresthesia, | | 2016 | | [facility]ICAL [facility]ENTER | [address] | left; Chronic chest | | | | EMERGENCY CENTER | [place] [address] | pain; Type 2 | | | | [address] | [phone] | diabetes mellitus | | | | [place], [place] | | with hyperglycemia, | | | | [address] | | unspecified long | | | | [phone] | | term insulin use | | | | | | status ([facility]) | +--------+ + + + [...] + + + | Blood Pressure | 157/72 | 02/01/2016 11:51 AM | | | | | PST | | + + + + + | Pulse | 103 | 02/01/2016 11:51 AM | | | | | PST | | + + + + + | Temperature | 36.6 C (97.8 F) | 02/01/2016 11:51 AM | | | | | PST | | + + + + + | Respiratory Rate | 20 | 02/01/2016 11:51 AM | | | | | PST [...] ED Notes Conversion Transaction, Provider Unknown - 02/01/2016 11:32 AM PSTFormatting of this note m ight be different from the original. ED Notes by Evette Mcgarry at 02/01/161131 Author: Evette Mcgarry Service: (none) Author Type: Triage Clinician Filed: 02/01/161132 Date of Service: 12/26/16 1132 Status: Signed Cinder Dump Crane Operator: Evette Mcgarry (Triage Clinician) Changed patients gown and socks states he urinated on gown and floor Evette Mcgarry 02/01/16 1133 onver ivana Transaction, Provider Unknown - 02/01/2016 11:19 AM PST ED Notes by Samantha Olivo RN at 02/01/16 1119 Author: Samantha Olivo RN Service: (none) Author Type: Registered Nurse Filed: 02/01/16 1120 Date of Service: 02/01/16 1119 Status: Signed Cinder Dump Crane Operator: Samantha Olivo RN (Registered Nurse) Pt stating, "I'm ready for my shot" re: insulin shot. No insulin ordered at this time. Samantha Olivo RN 02/01/16 1120 onver ivana Transaction, Provider Unknown - 02/01/2016 11:00 AM PST ED Notes by Evette Mcgarry at 02/01/16 1100 Author: Evette Mcgarry Service: (none) Author Type: Triage Clinician Filed: 02/01/16 1100 Date of Service: 02/01/16 1100 Status: Signed Cinder Dump Crane Operator: Evette Mcgarry (Triage Clinician) Repeat EKG completed shown to Dr Lucero Mcgarry 02/01/16 1100 onver ivana Transaction, Provider Unknown - 02/01/2016 10:27 AM PST ED Notes by Samantha Olivo RN at 02/01/16 1027 Author: Samantha Olivo RN Service: (none) Author Type: Registered Nurse Filed: 02/01/16 102 Date of Service: 02/01/16 1027 Status: Signed Cinder Dump Crane Operator: Samantha Olivo RN (Registered Nurse) Pt returned from CT Samantha Olivo RN 02/01/16 1027 onver ivana Transaction, Provider Unknown - 02/01/2016 10:19 AM PST ED Notes by Mica Morrissey RN at 02/01/16 1019 Author: Mica Morrissey RN Service: (none) Author Type: Registered Nurse Filed: 02/01/16 1020 Date of Service: 02/01/16 1019 Status: Signed Cinder Dump Crane Operator: Mica Morrissey RN (Registered Nurse) Pt Is currently at CT. Unable to assess. Mica Morrissey RN 02/01/16 1020 Norah Rivas MD - 02/01/2016 9:09 AM PSTFormatting of this note might be different from the or iginal. ED Provider Notes by Norah Barker MD at 02/01/16 0909 Author: Norah Barker MD Service: Emergency Department Author Type: Physician Filed: 02/01/16 1149 Date of Service: 02/01/16 0909 Status: Signed Cinder Dump Crane Operator: Norah Barker MD (Physician) [facility] Department of Emergency Medicine History of Present Illness Patient Identification Norah Gr is a 60 y.o. male. Patient information was obtained from patient. History/Exam limitations: none. Patient presented to the Emergency Department [place] [address] Room:06/10 Chief Complaint Chief Complaint Patient presents with Neurologic Problem 60 y.o. male with left arm numbness. Patient states he is concerned that he may have had a mini stroke. He states he woke up this morning and noticed that he is having some numbness i n his left arm from the elbow down. He states that his symptoms are similar to when he was a t [facility] in the last few weeks also for possible mini stroke. He state s that he had a CT scan of his head and a stress test that showed his heart was normal. He h ad been doing fairly well since that time. He denies any difficulty speaking, blurry vision, weakness. No current chest pain or shortness of breath. Occasional intermittent diffuse marimar nding, throbbing headaches feeling well at this time. Symptoms are described as mild to mode rate. No significant aggravating or alleviating factors. EMS activated with no intervention other than transport. Primary Care Doctor: JERRELL GUTIÉRREZ Past Medical [...] pain Stroke (HCC) TIA (transient ischemic attack) halfway (current) use of 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 Past Surgical History Procedure Laterality Date Unlisted procedure arthroscopy Knee surgery rt knee, patella Leg surgery LLE Colonoscopy Abdominal surgery Cholecystectomy Upper gastrointestinal endoscopy Skin biopsy Skin lesion excision Left 05/05/2014 Procedure: EXCISION - LESION - FROZEN SECTION; Surgeon: Sy Fierro MD; Location: [facility] MAIN OR; Service: Plastics; Laterality: Left; forearm Hernia repair N/A 07/03/2013 Procedure: LAPAROSCOPIC - HERNIA - INCISIONAL; Surgeon: Jevon Vargas DO; Location: [facility] MAIN OR; Service: General; Laterality: N/A; Colonoscopy N/A 03/04/2013 Procedure: COLONOSCOPY; Surgeon: Howie Gibson MD; Location: [facility] ENDOSCOPY; Service: Gastroe nterology; Laterality: N/A; Esophagogastroduodenoscopy N/A 03/03/2013 Procedure: ESOPHAGOGASTRODUODENOSCOPY; Surgeon: Howie Gibson MD; Location: [facility] ENDOSCOPY; S ervice: Gastroenterology; Laterality: N/A; Skin cancer excision Left 10/10/2012 Procedure: EXCISION - SKIN CANCER; Surgeon: Sy Fierro MD; Location: [facility] MA[facility] OR ; Service: Plastics; Laterality: Left; upper arm and upper back w/frozen section Cholecystectomy, laparoscopic N/A 09/12/2012 Procedure: LAPAROSCOPIC - CHOLECYSTECTOMY; Surgeon: Jevon Vargas DO; Location: [facility] OR; Service: General; Laterality: N/A; Prior to Admission medications Medication Sig Start Date End Date Taking? Authorizing Provider Albuterol Sulfate (VENTOLIN HFA IN) Inhale 2 puffs into the lungs as needed. 108 mcg/act Historical Provider Aaitw-J-Ahytmfmhpkhzo (BEANO) TABS Take 150 Units by mouth [...] 100 mg by mouth nightly. Historical Provider snjkdhaoq-catszsen-kzpxdilic hydroxide-simethicone Take 40 mLs by mouth daily [...] Number of Children: 1 Years of Education: [employer]. [employer] Occupational History disabled Social History Main Topics Smoking status: Never Smoker Smokeless tobacco: Never Used Alcohol Use: 0.0 oz/week 1-2 Cans of beer per week Comment: once week, occasionally Drug Use: No Sexual Activity: Not Currently Other Topics Concern Not on file Social History Narrative Lives alone x 1 wk, [facility] from [facility], , 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 2 falls in the last 6 months. Family History Problem Relation Age of Onset Heart disease Father Heart disease Sister Diabetes type II Sister Heart Problems Brother Review of Systems Positive for: Left arm paresthesias, intermittent headaches No fever, chills, nausea or vomiting. No vision changes, difficulty breathing. No chest pain, abdominal pain, weakness or rash. No difficulty with urination or bowel movements. No other complaints. See HPI for further relevant details. All systems otherwise negative, except as recorded above and as recorded in the HPI. Physical Exam Filed Vitals: 02/01/16 0909 02/01/16 1033 02/01/16 1132 BP: 142/67 134/62 128/89 Pulse: 96 45 57 Temp: 98 F (36.7 C) 97.8 F (36.6 C) TempSrc: Oral Oral Resp: 20 16 SpO2: 97% 96% 95% INTERPRETATION OF VITALS Pulse Oximetry interpretation: Normal Slightly elevated blood pressure. Otherwise normal PHYSICAL EXAM Appearance: Alert. No [...] Skin warm and dry. Extremities: No deformity. Trace edema of the bilateral lower extremity. Neuro: Moves all extremities. No gross deficit. Symmetric strength and sensation of upper and lower extremities. No facial asymmetry. NIHSS = 0. Medical Decision Making and Emergency Department Course ED Department Course: 9:09 AM Norah Gr is a 60 y.o. male who presents with a chief complaint of left arm paresthesia s. Differential diagnosis includes stroke, transient ischemic attack, radiculopathy, other. After discussing diagnostic therapeutic options will obtain screening labs, EKG, CT scan of the head and neck. We will obtain outpatient records. We will monitor closely and reevaluate .. 9:29 AM Records obtained from [facility]. CT head was negative for acute intracranial process. Stress test was normal. ECG shows sinus bradycardia. Otherwise.normal. Laboratory studies fairly unremarkable with the exception of moderate hyperglycemia. No angie dence of significant acidosis. Troponin negative. Patient on the CT. Patient states that he is having some twinges of chest pain. We will repeat EKG. Repeat EKG shows again sinus bradycardia without any other significant abnormality. CT head and neck unremarkable for acute process. Patient was road tested with no difficulty. States that his arm feels normal. Frustrated th at he is having chest pain for so many years without a definitive cause. With recent stress test and no significant change or do not feel he requires repeat admission for further evalu ation at this time. Patient agreeable. At this time I feel the patient is stable for outpati ent management with close follow-up.Typical anticipatory guidelines and strict return to [facility] ency Department precautions have been given. All involved are understanding of and in agre ement with this plan. All questions have been addressed to the best of my ability. Records Reviewed Old medical records. Nursing notes. Ambulance run sheet. Previous radiology studies. Laboratory Evaluation Results Procedure Component Value Ref Range Date/Time Urinalysis (reflex to microscopic/reflex to culture) [[id number]] (Abnormal) Collected: 02/01/16928 Order Status: Completed Specimen Information: Urine, Clean Catch Updated: 02/01/16 10 11 COLOR UA YELLOW CLARITY CLEAR Specific [place], UA 1.010 1.002 - 1.030 LEUKOCYTE ESTERASE NEGATIVE NEGATIVE NITRITE NEGATIVE NEGATIVE UROBILINOGEN NORMAL <1.1 mg/dL PROTEIN NEGATIVE NEGATIVE mg/dL PH,URINE 5.0 5.0 - 8.0 BLOOD NEGATIVE NEGATIVE KETONES NEGATIVE NEGATIVE mg/dL BILIRUBIN NEGATIVE NEGATIVE GLUCOSE >500 (A) NEGATIVE mg/dL Cardiac Panel [[id number]] (Abnormal) Collected: 02/01/16 09 Order Status: Completed Updated: 02/01/16942 WBC 8.41 3.80 - 11.00 K/uL RBC 4.81 4.20 - 5.70 M/uL HGB 13.2 13.2 - 17.0 g/dL HCT 39.3 39.0 - 50.0 % MCV 81.8 80.0 - 100.0 fl MCH 27.4 27.0 - 34.0 pg MCHC 33.6 32.0 - 35.5 g/dL RDW SD 42.4 37 - 53 fl PLT 214 150 - 400 K/uL MPV 7.6 fl DIFF TYPE AUTOMATED NEUTROPHILS 52.22 % LYMPHOCYTES 30.51 % MONOCYTES 11.41 % EOSINOPHILS 5.19 % BASOPHILS 0.67 % NEUTROPHILS ABS 4.39 1.90 - 7.40 K/uL LYMPHOCYTES ABS 2.57 1.00 - 3.90 K/uL MONOCYTES ABS 0.96 (H) 0.00 - 0.80 K/uL EOSINOPHILS ABS 0.44 0.00 - 0.50 K/uL BASOPHILS ABS 0.06 0.00 - 0.10 K/uL SODIUM 138 135 - 145 mmol/L POTASSIUM 3.8 3.5 - 4.9 mmol/L CHLORIDE 99 99 - 109 mmol/L CO2 29 23 - 32 mmol/L ANION GAP AGAP 14 5 - 20 mmol/L GLUCOSE 265 (H) 65 - 99 mg/dL BUN 12 8 - 25 mg/dL CREATININE 1.1 0.70 - 1.30 mg/dL BUN/CREAT 11 CALCIUM 8.3 (L) 8.5 - 10.5 mg/dL TOTAL PROTEIN 6.9 6.3 - 8.2 g/dL Albumin 2.9 (L) 3.3 - 4.8 g/dL GLOBULIN 4.0 1.3 - 4.9 g/dL A/G 0.7 (L) 1.0 - 2.4 TBIL 0.4 0.1 - 1.5 mg/dL ALK PHOS 79 35 - 115 U/L AST 24 10 - 45 U/L ALT 26 10 - 65 U/L EGFR >60 >60 mL/min/1.73m2 CPK 120 55 - 400 U/L INR 1.4 APTT 27 23 - 32 seconds MMB 1.6 0.5 - 3.6 ng/mL CK-MB Index 1.3 Troponin I, Lab [[id number]] Collected: 02/01/16909 Order Status: Completed Specimen Information: Blood Updated: 02/01/16942 TROPONIN I <0.020 0.00 - 0.10 ng/mL Lab Interpretation I have reviewed lab results from the emergency department workup and abnormal results have been posted to the chart. Pertinent positive and negative findings have been addressed appr opriately. Radiology and EKG Evaluation Imaging Results CTA Head and Neck (Final result) Result time: 02/01/16 11:02:08 Final result by Rad Results In Richard (02/01/16 11:02:08) Impression: 1. No acute intracranial findings. 2. Atherosclerosis of carotid arteries bilaterally without hemodynamically significant antoine nosis. Approximately 26% diameter stenosis at origin of left internal carotid artery. 0% antoine nosis of right internal carotid artery. 3. Additional findings as detailed above. Narrative: NORAH GR CTA HEAD NECK W WO CONTRAST 02/01/2016 10:30 AM HISTORY: 60 years. Male. Stroke TECHNIQUE: 5-mm axial pre-contrast and post-contrast images of the head were acquired from the foramen magnum through the cranial vertex. Axial 0.625-mm images were acquired from the skull base to the cranial vertex and then axial 1.25 mm arterial phase images were acquired through the neck according to a CT angiography protocol. Multiplanar CT angiographic MIP reconstruction s were performed. The data set was also examined with [employer] 3D software for evaluation of t he cerebral vasculature. Dose reduction techniques were used including automated exposure co ntrol (AEC), iterative reconstruction technique, and/or mA and/or kV dose adjustments based on patient size. IV contrast: 100 mL IsoVue 370 COMPARISON: Multiple, most recent head CT dated 12/21/2014 FINDINGS: CT HEAD: No acute large vascular territory infarct. No acute intracranial hemorrhage. Mild diffuse c erebral volume loss with mild prominence of extra axial CSF spaces. No intracranial mass les ion. No midline shift. No hydrocephalus. Intracranial atherosclerosis. No abnormal enhanceme nt is seen within the brain parenchyma, leptomeninges or dura. The orbits and their contents are normal. Mild mucosal thickening in both frontal and eth moid sinuses. No air-fluid levels to indicate acute sinusitis. Left jerome bullosa. The mas toid air cells show normal pneumatization bilaterally. No mastoid fluid noted. The osseous structures of the calvaria do not demonstrate fracture. No lytic or blastic lesions are no tasia. CT ANGIOGRAM HEAD: Blank Posterior Circulation: Vertebral Dominance: Codominance Right vertebral artery: Atherosclerosis without hemodynamically significant stenosis. Left vertebral artery: Atherosclerosis without hemodynamically significant stenosis. Posterior inferior cerebellar arteries: Normal. Anterior inferior cerebellar arteries: Normal. Basilar artery: Normal. Superior cerebellar arteries: Normal. Right posterior cerebral artery: Normal. Left posterior cerebral artery: Normal. [place]: Anterior communicating artery: Normal. Right posterior communicating artery: Normal. Left posterior communicating artery: Normal. Anterior Circulation: Distal Internal Carotids: Right Internal carotid: Atherosclerosis without hemodynamically significant stenosis. Left Internal carotid: Atherosclerosis without hemodynamically significant stenosis. Right Anterior cerebral artery: A1 segment: Normal. A2 segment: Normal. Right MCA: M1 segment: Normal. Post bifurcation M1 segment: Normal. M2 segments: Normal. M3 segments: Normal. Left Anterior cerebral artery: A1 segment: Normal. A2 segment: Normal. Left MCA: M1 segment: Normal. Post bifurcation M1 segment: Normal. M2 segments: Normal. M3 segments: Normal. Dural Venous Sinuses: Superior Sagittal: Normal. Right Transverse: Normal. Right Sigmoid: Normal. Left Transverse: Normal. Left Sigmoid: Normal. Straight Sinus: Normal. CT NECK: The mucosal surfaces of the nasopharynx, oropharynx, hypopharynx and larynx are symmetric. No enhancing mass is seen. The paralaryngeal and parapharyngeal fat planes are well-preser ariella. The parotid glands are normal. Small submental glands bilaterally. The thyroid is symmetric and shows no evidence of a solid or cystic mass. The lymph nodes in the neck are normal in size and shape. Normal fatty veena are noted. No calcified or nec rotic nodes are seen. The venous structures in the neck are normal. The muscular structure s in the neck are normal. The cervical esophagus is normal. Mild multilevel degenerative disc disease and facet joint osteoarthritis in cervical spine. The visualized portions of the lung apices are normal. 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 No dissection, aneurysm or stenosis is seen in the aorta or great vessels. Ascending Aorta: Mild mixed calcified and soft plaque identified. No evidence of aneurysm , dissection or stenosis. Right Brachiocephalic: Mild mixed calcified and soft plaque identified. No evidence of an eurysm, dissection or stenosis. Right Common Carotid Origin: Mild mixed calcified and soft plaque identified. No evidence of aneurysm, dissection or stenosis. Right Subclavian: Mild mixed calcified and soft plaque identified. No evidence of aneurys m, dissection or stenosis. Left Common Carotid Origin: Mild mixed calcified and soft plaque identified. No evidence of aneurysm, dissection or stenosis. Left Subclavian: Mild mixed calcified and soft plaque identified. No evidence of aneurysm , dissection or stenosis. Carotids: Right Common carotid: Small atherosclerotic plaques. No hemodynamically significant stenosi s. Right External carotid: Small atherosclerotic plaques. No hemodynamically significant steno sis. Right Internal carotid: Small atherosclerotic plaques. No hemodynamically significant steno sis. Minimum diameter at stenosis: 5 mm. Maximum diameter of normal ICA: 5 mm. This calculates to a 0 % stenosis using NASCET measurement technique. Left Common carotid: Small atherosclerotic plaques. No hemodynamically significant stenosis . Left External carotid: Small atherosclerotic plaques. No hemodynamically significant stenos is. Left Internal carotid: Small atherosclerotic plaques. Large eccentric calcified and noncalc ified atherosclerotic plaques at origin of left internal carotid artery. No hemodynamically significant stenosis. Minimum diameter at stenosis: 6 mm. Maximum diameter of normal ICA: 8.1 mm. This calculates to a 26 % stenosis using NASCET measurement technique. Vertebrals: The vertebral arteries are co-dominant. Right Vertebral artery: No hemodynamically significant stenosis. Left Vertebral artery: No hemodynamic likely significant stenosis. ECG from 0945: Sinus bradycardia at 43 bpm. WI, QRS, QT, and axis are normal. No ST segmen t elevations or depression. No significant Q waves. Good R wave progression through the prec ordial leads. Meets No STEMI criteria for ischemia. In comparison with an old ECG from 02/07 the rate has decreased. This study has been independently viewed and interpreted by me. ECG from 1057: Sinus bradycardia at 44 bpm. WI, QRS, QT, and axis are normal. No ST segme nt elevations or depression. No significant Q waves. Good R wave progression through the pre cordial leads. Meets No STEMI criteria for ischemia. In comparison with an old ECG from [facility] there are no significant changes. This study has been independently viewed and inter preted by me. ED Diagnoses Final diagnoses Arm paresthesia, left Chronic chest pain Type 2 diabetes mellitus with hyperglycemia, unspecified halfway insulin use status (HCC ) Disposition: ED Disposition Discharge Condition at discharge: Stable Follow-up Information Follow up With Details Comments Contact Info Jrerell Gutiérrez DO Schedule an appointment as soon as possible for a visit [address] [place] [address] [facility] Emergency Department If symptoms worsen [address] [facility] [address] Discharge Medications: New Prescriptions No new medications This document has been prepared with a voice recognition system. The possibility of "sound alike" mash processing operator errors, addition and/or deletions may occur. If there is any question p lease contact the author of the document. Procedures Additional Documentation Procedures Norah Barker MD 02/01/16 1149 onversion Transactio n, Provider Unknown - 02/01/2016 9:08 AM PST ED Notes by Tatum Pratt RN at 02/01/16907 Author: Tatum Pratt RN Service: (none) Author Type: Registered Nurse Filed: 02/01/16907 Date of Service: 02/01/16907 Status: Signed Cinder Dump Crane Operator: Tatum Pratt RN (Registered Nurse) Bed: 05 Expected date: Expected time: Means of arrival: Comments: 1723 onver ivana Transaction, Provider Unknown - 02/01/2016 8:57 AM PST ED Notes by Tatum Pratt RN at 02/01/1657 Author: Tatum Pratt RN Service: (none) Author Type: Registered Nurse Filed: 02/01/16856 Date of Service: 02/01/16856 Status: Signed Cinder Dump Crane Operator: Tatum Pratt RN (Registered Nurse) H/a, 11/15, started one hour ago. Tatum Pratt RN 02/01/1657 docume nted in this encounter Plan of [...] | | | | | | [place] [id number] | | | | | | [phone] | | | | | | | | +--------+ + + + + documented as of this encounter Procedures + +--------+ + + + | Procedure Name | Priori | Date/Time | Associated Diagnosis | Comments | | | ty | | | | + +--------+ + + + | ECG 12 LEAD | Routin | 02/01/2016 | | Results for this | | | e | 10:57 AM | | procedure are in the | | | | PST | | results section. | + +--------+ + + + | CT ANGIOGRAM HEAD | Routin | 02/01/2016 | | Results for this | | NECK W CONTRAST | e | 10:30 AM | | procedure are in the | | | | PST | | results section. | + +--------+ + + + | ECG 12 LEAD | Routin | 02/01/2016 | | Results for this | | | e | 9:45 AM | | procedure are in the | | | | PST | | results section. | + +--------+ + + + | POC GLUCOSE | Routin | 02/01/2016 | | Results for this | | | e | 9:38 AM | | procedure are in the | | | | PST | | results section. | + +--------+ + + + | URINALYSIS, REFLEX | Routin | 02/01/2016 | | Results for this | | MICROSCOPIC AND/OR | e | 9:29 AM | | procedure are in the | | CULTURE | | PST | | results section. | + +--------+ + + + | HISTORICAL LAB PANEL | Routin | 02/01/2016 | | Results for this | | RESULT | e | 9:10 AM | | procedure are in the | | | | PST | | results section. | + +--------+ + + + | TROPONIN I | Routin | 02/01/2016 | | Results for this | | | e | 9:10 AM | | procedure are in the | | | | PST | | results section. | + +--------+ + + + documented in this encounter Results ECG 12 lead (02/01/2016 10:57 AM PST) + + + + + [...] | | | | | ECG of 25-FEB-2015 | | | | | | 05:04,Vent. rate has | | | | | | decreased BY 47 | | | | | | BPMNonspecific T wave | | | | | | abnormality no longer | | | | | | evident in Inferior | | | | | | leadsT wave amplitude | | | | | | has increased in | | | | | | [...] | | | | | ONLY, -COMPUTER ([id number]), | | | | | | editor sound Ashley Fan | | | | | | (79) on 02/01/2016 | | | | | | 6:48:59 PM | | | | + + + + + + + + | Specimen | + + | | + + + + + | Narrative | Performed At | + + + | Historically converted procedure from [facility] Epic environment | EXTERNAL LAB | + + + + +---------+ + + | Performing | Address | City/State/Zipcode | Phone Number | | Organization | | | | + +---------+ + + | EXTERNAL LAB | | | | + +---------+ + + CT Angiogram Head and Neck w Contrast (02/01/2016 10:30 AM PST) + + | Specimen | + + | | + + + + + | Impressions | Performed At | + + + | 1. No acute intracranial findings. 2. Atherosclerosis of | | | carotid arteries bilaterally without hemodynamically significant | | | stenosis. Approximately 26% diameter stenosis at origin of left | | | internal carotid artery. 0% stenosis of right internal carotid artery. | | | 3. Additional findings as detailed above. Electronically | | | signed by Edd Lam on 02/01/2016 11:02 AM | | + + + + + + | Narrative | Performed At | + + + | NORAH GR CTA HEAD NECK W WO CONTRAST 02/01/2016 10:30 AM | | | HISTORY: 60 years. Male. Stroke TECHNIQUE: 5-mm axial | | | pre-contrast and post-contrast images of the head were acquired from | | | the foramen magnum through the cranial vertex. Axial 0.625-mm images | | | were acquired from the skull base to the cranial vertex and then axial | | | 1.25 mm arterial phase images were acquired through the neck | | | according to a CT angiography protocol. Multiplanar CT angiographic | | | MIP reconstructions were performed. The data set was also examined | | | with [employer] 3D software for evaluation of the cerebral vasculature. | | | Dose reduction techniques were used including automated exposure | | | control (AEC), iterative reconstruction technique, and/or mA and/or kV | | | dose adjustments based on patient size. IV contrast: 100 mL | | | IsoVue 370 COMPARISON: Multiple, most recent head CT dated | | | 12/21/2014 FINDINGS: CT HEAD: No acute large vascular | | | territory infarct. No acute intracranial hemorrhage. Mild diffuse | | | cerebral volume loss with mild prominence of extra axial CSF spaces. | | | No intracranial mass lesion. No midline shift. No hydrocephalus. | | | Intracranial atherosclerosis. No abnormal enhancement is seen within | | | the brain parenchyma, leptomeninges or dura. The orbits and | | | their contents are normal. Mild mucosal thickening in both frontal | | | and ethmoid sinuses. No air-fluid levels to indicate acute sinusitis. | | | Left jerome bullosa. The mastoid air cells show normal | | | pneumatization bilaterally. No mastoid fluid noted. The osseous | | | structures of the calvaria do not demonstrate fracture. No lytic or | | | blastic lesions are noted. CT ANGIOGRAM HEAD: Blank Posterior | | | Circulation: Vertebral Dominance: Codominance Right vertebral | | | artery: Atherosclerosis without hemodynamically significant stenosis. | | | Left vertebral artery: Atherosclerosis without hemodynamically | | | significant stenosis. Posterior inferior cerebellar arteries: Normal. | | | Anterior inferior cerebellar arteries: Normal. Basilar artery: | | | Normal. Superior cerebellar arteries: Normal. Right posterior | | | cerebral artery: Normal. Left posterior cerebral artery: Normal. | | | [place]: Anterior communicating artery: Normal. Right | | | posterior communicating artery: Normal. Left posterior | | | communicating artery: Normal. Anterior Circulation: Distal | | | Internal Carotids: Right Internal carotid: Atherosclerosis without | | | hemodynamically significant stenosis. Left Internal carotid: | | | Atherosclerosis without hemodynamically significant stenosis. | | | Right Anterior cerebral artery: A1 segment: Normal. A2 segment: | | | Normal. Right MCA: M1 segment: Normal. Post bifurcation M1 | | | segment: Normal. M2 segments: Normal. M3 segments: Normal. Left | | | Anterior cerebral artery: A1 segment: Normal. A2 segment: Normal. | | | Left MCA: M1 segment: Normal. Post bifurcation M1 segment: Normal. | | | M2 segments: Normal. M3 segments: Normal. Dural Venous | | | Sinuses: Superior Sagittal: Normal. Right Transverse: Normal. Right | | | Sigmoid: Normal. Left Transverse: Normal. Left Sigmoid: Normal. | | | Straight Sinus: Normal. CT NECK: The mucosal surfaces of the | | | nasopharynx, oropharynx, hypopharynx and larynx are symmetric. No | | | enhancing mass is seen. The paralaryngeal and parapharyngeal fat | | | planes are well-preserved. The parotid glands are normal. Small | | | submental glands bilaterally. The thyroid is symmetric and shows | | | no evidence of a solid or cystic mass. The lymph nodes in the neck | | | are normal in size and shape. Normal fatty veena are noted. No | | | calcified or necrotic nodes are seen. The venous structures in the | | | neck are normal. The muscular structures in the neck are normal. | | | The cervical esophagus is normal. Mild multilevel degenerative | | | disc disease and facet joint osteoarthritis in cervical spine. The | | | visualized portions of the lung apices are normal. 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 No dissection, aneurysm or stenosis is seen in the | | | aorta or great vessels. Ascending Aorta: Mild mixed calcified and | | | soft plaque identified. No evidence of aneurysm, dissection or | | | stenosis. Right Brachiocephalic: Mild mixed calcified and soft plaque | | | identified. No evidence of aneurysm, dissection or stenosis. | | | Right Common Carotid Origin: Mild mixed calcified and soft plaque | | | identified. No evidence of aneurysm, dissection or stenosis. Right | | | Subclavian: Mild mixed calcified and soft plaque identified. No | | | evidence of aneurysm, dissection or stenosis. Left Common Carotid | | | Origin: Mild mixed calcified and soft plaque identified. No | | | evidence of aneurysm, dissection or stenosis. Left Subclavian: Mild | | | mixed calcified and soft plaque identified. No evidence of | | | aneurysm, dissection or stenosis. Carotids: Right Common carotid: | | | Small atherosclerotic plaques. No hemodynamically significant | | | stenosis. Right External carotid: Small atherosclerotic plaques. No | | | hemodynamically significant stenosis. Right Internal carotid: Small | | | atherosclerotic plaques. No hemodynamically significant stenosis. | | | Minimum diameter at stenosis: 5 mm. Maximum diameter of normal ICA: 5 | | | mm. This calculates to a 0 % stenosis using NASCET measurement | | | technique. Left Common carotid: Small atherosclerotic plaques. No | | | hemodynamically significant stenosis. Left External carotid: Small | | | atherosclerotic plaques. No hemodynamically significant stenosis. | | | Left Internal carotid: Small atherosclerotic plaques. Large eccentric | | | calcified and noncalcified atherosclerotic plaques at origin of left | | | internal carotid artery. No hemodynamically significant stenosis. | | | Minimum diameter at stenosis: 6 mm. Maximum diameter of normal ICA: | | | 8.1 mm. This calculates to a 26 % stenosis using NASCET measurement | | | technique. Vertebrals: The vertebral arteries are co-dominant. | | | Right Vertebral artery: No hemodynamically significant stenosis. Left | | | Vertebral artery: No hemodynamic likely significant stenosis. | | + + + + + | Procedure Note | + + | Richard, Rad Conversion - 09/20/2018 4:04 AM PDT NORAH TREVIÑO HEAD NECK W WO | | PLIXGACK78/26/2016 10:30 AM HISTORY:60 years. Male. Stroke TECHNIQUE:5-mm axial | | pre-contrast and post-contrast images of the head were acquired from the foramen magnum | | through the cranial vertex. Axial 0.625-mm images were acquired from the skull base to | | the cranial vertex and then axial 1.25 mm arterial phase images were acquired through | | the neck according to a CT angiography protocol. Multiplanar CT angiographic MIP | | reconstructions were performed. The data set was also examined with [employer] 3D software | | for evaluation of the cerebral vasculature. Dose reduction techniques were used | | including automated exposure control (AEC), iterative reconstruction technique, and/or | | mA and/or kV dose adjustments based on patient size. IV contrast: 100 mL IsoVue 370 | | COMPARISON:Multiple, most recent head CT dated 12/21/2014 FINDINGS: CT HEAD:No acute | | large vascular territory infarct. No acute intracranial hemorrhage. Mild diffuse | | cerebral volume loss with mild prominence of extra axial CSF spaces. No intracranial | | mass lesion. No midline shift. No hydrocephalus. Intracranial atherosclerosis. No | | abnormal enhancement is seen within the brain parenchyma, leptomeninges or dura. The | | orbits and their contents are normal. Mild mucosal thickening in both frontal and | | ethmoid sinuses. No air-fluid levels to indicate acute sinusitis. Left jerome bullosa. | | The mastoid air cells show normal pneumatization bilaterally. No mastoid fluid noted. | | The osseous structures of the calvaria do not demonstrate fracture. No lytic or blastic | | lesions are noted. CT ANGIOGRAM HEAD:BlankPosterior Circulation:Vertebral Dominance: | | CodominanceRight vertebral artery: Atherosclerosis without hemodynamically significant | | stenosis.Left vertebral artery: Atherosclerosis without hemodynamically significant | | stenosis.Posterior inferior cerebellar arteries: Normal.Anterior inferior cerebellar | | arteries: Normal.Basilar artery: Normal.Superior cerebellar arteries: Normal.Right | | posterior cerebral artery: Normal.Left posterior cerebral artery: Normal. [place] | | [place]:Anterior communicating artery: Normal.Right posterior communicating artery: | | Normal.Left posterior communicating artery: Normal. Anterior Circulation:Distal Internal | | Carotids:Right Internal carotid: Atherosclerosis without hemodynamically significant | | stenosis.Left Internal carotid: Atherosclerosis without hemodynamically significant | | stenosis. Right Anterior cerebral artery:A1 segment: Normal.A2 segment: Normal. Right | | MCA:M1 segment: Normal.Post bifurcation M1 segment: Normal.M2 segments: Normal.M3 | | segments: Normal. Left Anterior cerebral artery:A1 segment: Normal.A2 segment: Normal. | | Left MCA:M1 segment: Normal.Post bifurcation M1 segment: Normal.M2 segments: Normal.M3 | | segments: Normal. Dural Venous Sinuses:Superior Sagittal: Normal.Right Transverse: | | Normal.Right Sigmoid: Normal.Left Transverse: Normal.Left Sigmoid: Normal.Straight | | Sinus: Normal. CT NECK:The mucosal surfaces of the nasopharynx, oropharynx, hypopharynx | | and larynx are symmetric. No enhancing mass is seen. The paralaryngeal and | | parapharyngeal fat planes are well-preserved. The parotid glands are normal. Small | | submental glands bilaterally. The thyroid is symmetric and shows no evidence of a solid | | or cystic mass. The lymph nodes in the neck are normal in size and shape. Normal fatty | | veena are noted. No calcified or necrotic nodes are seen. The venous structures in the | | neck are normal. The muscular structures in the neck are normal. The cervical | | esophagus is normal. Mild multilevel degenerative disc disease and facet joint | | osteoarthritis in cervical spine. The visualized portions of the lung apices are normal. 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 | | No dissection, aneurysm or stenosis is seen in the aorta or great vessels.Ascending | | Aorta: Mild mixed calcified and soft plaque identified. No evidence of aneurysm, | | dissection or stenosis.Right Brachiocephalic: Mild mixed calcified and soft plaque | | identified. No evidence of aneurysm, dissection or stenosis.Right Common Carotid | | Origin: Mild mixed calcified and soft plaque identified. No evidence of aneurysm, | | dissection or stenosis.Right Subclavian: Mild mixed calcified and soft plaque | | identified. No evidence of aneurysm, dissection or stenosis.Left Common Carotid | | Origin: Mild mixed calcified and soft plaque identified. No evidence of aneurysm, | | dissection or stenosis.Left Subclavian: Mild mixed calcified and soft plaque identified. | | No evidence of aneurysm, dissection or stenosis. Carotids:Right Common carotid: Small | | atherosclerotic plaques. No hemodynamically significant stenosis.Right External | | carotid: Small atherosclerotic plaques. No hemodynamically significant stenosis.Right | | Internal carotid: Small atherosclerotic plaques. No hemodynamically significant | | stenosis.Minimum diameter at stenosis: 5 mm.Maximum diameter of normal ICA: 5 mm.This | | calculates to a 0 % stenosis using NASCET measurement technique. Left Common carotid: | | Small atherosclerotic plaques. No hemodynamically significant stenosis.Left External | | carotid: Small atherosclerotic plaques. No hemodynamically significant stenosis.Left | | Internal carotid: Small atherosclerotic plaques. Large eccentric calcified and | | noncalcified atherosclerotic plaques at origin of left internal carotid artery. No | | hemodynamically significant stenosis. Minimum diameter at stenosis: 6 mm.Maximum | | diameter of normal ICA: 8.1 mm.This calculates to a 26 % stenosis using NASCET | | measurement technique. Vertebrals:The vertebral arteries are co-dominant.Right Vertebral | | artery: No hemodynamically significant stenosis.Left Vertebral artery: No hemodynamic | | likely significant stenosis. IMPRESSION: 1. No acute intracranial findings.2. | | Atherosclerosis of carotid arteries bilaterally without hemodynamically significant | | stenosis. Approximately 26% diameter stenosis at origin of left internal carotid artery. | | 0% stenosis of right internal carotid artery.3. Additional findings as detailed above. | | | |Dural Venous Sinuses: | |Superior Sagittal: Normal. | |Right Transverse: Normal. | |Right Sigmoid: Normal. | |Left Transverse: Normal. | |Left Sigmoid: Normal. | |Straight Sinus: Normal. | | | |CT NECK: | |The mucosal surfaces of the nasopharynx, oropharynx, hypopharynx and larynx are symmetric. No enhancing mass is seen. The paralaryngeal and parapharyngeal fat planes are well-preser ariella. The parotid glands are normal. | | | |Small submental glands bilaterally. | | | |The thyroid is symmetric and shows no evidence of a solid or cystic mass. The lymph nodes in the neck are normal in size and shape. Normal fatty veena are noted. No calcified or nec rotic nodes are seen. The venous | |structures in the neck are normal. | |The muscular structures in the neck are normal. The cervical esophagus is normal. 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 | | | |The visualized portions of the lung apices are normal. 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 No dissection, aneurysm or stenosis is seen in the aorta or great vessels. | |Ascending Aorta: Mild mixed calcified and soft plaque identified. No evidence of aneurysm , dissection or stenosis. | |Right Brachiocephalic: Mild mixed calcified and soft plaque identified. No evidence of an eurysm, dissection or stenosis. | |Right Common Carotid Origin: Mild mixed calcified and soft plaque identified. No evidence of aneurysm, dissection or stenosis. | |Right Subclavian: Mild mixed calcified and soft plaque identified. No evidence of aneurys m, dissection or stenosis. | |Left Common Carotid Origin: Mild mixed calcified and soft plaque identified. No evidence of aneurysm, dissection or stenosis. | |Left Subclavian: Mild mixed calcified and soft plaque identified. No evidence of aneurysm , dissection or stenosis. | | | |Carotids: | |Right Common carotid: Small atherosclerotic plaques. No hemodynamically significant stenosi s. | |Right External carotid: Small atherosclerotic plaques. No hemodynamically significant steno sis. | |Right Internal carotid: Small atherosclerotic plaques. No hemodynamically significant steno sis. | |Minimum diameter at stenosis: 5 mm. | |Maximum diameter of normal ICA: 5 mm. | |This calculates to a 0 % stenosis using NASCET measurement technique. | | | |Left Common carotid: Small atherosclerotic plaques. No hemodynamically significant stenosis . | |Left External carotid: Small atherosclerotic plaques. No hemodynamically significant stenos is. | |Left Internal carotid: Small atherosclerotic plaques. Large eccentric calcified and noncalc ified atherosclerotic plaques at origin of left internal carotid artery. No hemodynamically significant stenosis. | | | |Minimum diameter at stenosis: 6 mm. | |Maximum diameter of normal ICA: 8.1 mm. | |This calculates to a 26 % stenosis using NASCET measurement technique. | | | |Vertebrals: | |The vertebral arteries are co-dominant. | |Right Vertebral artery: No hemodynamically significant stenosis. | |Left Vertebral artery: No hemodynamic likely significant stenosis. | | | |IMPRESSION: | |1. No acute intracranial findings. | |2. Atherosclerosis of carotid arteries bilaterally without hemodynamically significant antoine nosis. Approximately 26% diameter stenosis at origin of left internal carotid artery. 0% antoine nosis of right internal carotid artery. | |3. Additional findings as detailed above. | | | | | + + ECG 12 lead (02/01/2016 9:45 AM PST) + + + + [...] | | | | | ECG of 25-FEB-2015 | | | | | | 05:04,Vent. rate has | | | | | | decreased BY 48 | | | | | | BPMNonspecific [...] | | | | | ONLY, -COMPUTER ([id number]), | | | | | | editor sound Ashley Fan | | | | | | (79) on 02/01/2016 | | | | | | 6:48:58 PM | | | | + + [...] | + +---------+ + + POC Glucose (02/01/2016 9:38 AM PST) + + + + + + | Component | Value | Ref Range | Performed | Pathologist | | | | | At | Signature | + + + + + + | Glucose, | 245 (H)Comment: Testing | 65 - 99 mg/dL | EXTERNAL | | | Fingerstick | performed at [facility];[address] | | LAB | | | | [address];[place], [place] | | | | | | [address] | | | | + + + + + + + + | Specimen | + + | | + + + +---------+ + + | Performing | Address | City/State/Zipcode | Phone Number | | Organization | | | | + +---------+ + + | EXTERNAL LAB | | | | + +---------+ + + Urinalysis, Reflex Microscopic and/or Culture (02/01/2016 9:29 AM PST) + + + + + + | Component | Value | Ref Range | Performed | Pathologist | | | | | At | Signature | + + + + + + | Color | YELLOWComment: Testing | | EXTERNAL | | | | performed at [facility];[address] | | LAB | | | | [address];[place] | | | | | | [address] | | | | + + + + + + | Clarity, | CLEARComment: Testing | | EXTERNAL | | | Urine | performed at [facility];[address] | | LAB | | | | [address];[place] | | | | | | [address] | | | | + + + + + + | Specific | 1.010Comment: Testing | 1.002 - 1.030 | EXTERNAL | | | [place], | performed at [facility];[address] | | LAB | | | Urine | [address];[place] | | | | | | [address] | | | | + + + + + + | Leukocyte | NEGATIVEComment: Testing | | EXTERNAL | | | Esterase, | performed at [facility];[address] | | LAB | | | Urine | [address];[place] | | | | | | [address] | | | | + + + + + + | Nitrite, | NEGATIVEComment: Testing | | EXTERNAL | | | Urine | performed at [facility];[address] | | LAB | | | | [address];[place] | | | | | | [address] | | | | + + + + + + | Urobilinoge | NORMALComment: Testing | mg/dL | EXTERNAL | | | n, Urine | performed at [facility];[address] | | LAB | | | | [address];[place] | | | | | | [address] | | | | + + + + + + | Protein, | NEGATIVEComment: Testing | mg/dL | EXTERNAL | | | Urine | performed at [facility];[address] | | LAB | | | | [address];[place] | | | | | | [address] | | | | + + + + + + | pH, Urine | 5.0Comment: Testing | 5.0 - 8.0 | EXTERNAL | | | | performed at [facility];[address] | | LAB | | | | [address];[place] | | | | | | [address] | | | | + + + + + + | Blood, | NEGATIVEComment: Testing | | EXTERNAL | | | Urine | performed at [facility];[address] | | LAB | | | | [address];[place] | | | | | | [address] | | | | + + + + + + | Ketones | NEGATIVEComment: Testing | mg/dL | EXTERNAL | | | | performed at [facility];[address] | | LAB | | | | [address];[place] | | | | | | [address] | | | | + + + + + + | Bilirubin, | NEGATIVEComment: Testing | | EXTERNAL | | | Urine | performed at [facility];[address] | | LAB | | | | [address];[place] | | | | | | [address] | | | | + + + + + + | Glucose, | >500 (A)Comment: Testing | mg/dL | EXTERNAL | | | Urine | performed at [facility];[address] | | LAB | | | | [address];[place] | | | | | | [address] | | | | + + + + + + + + | Specimen | + + | | + + + +---------+ + + | Performing | Address | City/State/Zipcode | Phone Number | | Organization | | | | + +---------+ + + | EXTERNAL LAB | | | | + +---------+ + + HISTORICAL LAB PANEL RESULT (02/01/2016 9:10 AM PST) + + + + + -+ | Component | Value | Ref Range | Performed | Pathologist | | | | | At | Signature | + + + + + -+ | WBC | 8.41Comment: Testing | 3.80 - 11.00 | EXTERNAL | | | | performed at [facility];[address] | K/uL | LAB | | | | [address];[place] | | | | | | [address] | | | | + + + + + -+ | Non- | 4.81Comment: Testing | 4.20 - 5.70 | EXTERNAL | | | Red Blood | performed at [facility];[address] | M/uL | LAB | | | Cells | [address];[place] | | | | | Counted | [id number] | | | | + + + + + -+ | Hemoglobin | 13.2Comment: Testing | 13.2 - 17.0 | EXTERNAL | | | | performed at [facility];[address] | g/dL | LAB | | | | [address];[place] | | | | | | [address] | | | | + + + + + -+ | Hematocrit, | 39.3Comment: Testing | 39.0 - 50.0 % | EXTERNAL | | | POC | performed at [facility];[address] | | LAB | | | | [address];[place] | | | | | | [address] | | | | + + + + + -+ | MCV | 81.8Comment: Testing | 80.0 - 100.0 fl | EXTERNAL | | | | performed at [facility];[address] | | LAB | | | | [address];[place] | | | | | | [address] | | | | + + + + + -+ | MCH | 27.4Comment: Testing | 27.0 - 34.0 pg | EXTERNAL | | | | performed at [facility];[address] | | LAB | | | | [address];[place] | | | | | | [address] | | | | + + + + + -+ | MCHC | 33.6Comment: Testing | 32.0 - 35.5 | EXTERNAL | | | | performed at [facility];[address] | g/dL | LAB | | | | [address];[place] | | | | | | [address] | | | | + + + + + -+ | RDW-CV | 42.4Comment: Testing | 37 - 53 fl | EXTERNAL | | | | performed at [facility];[address] | | LAB | | | | [address];[place] | | | | | | [address] | | | | + + + + + -+ | Platelet | 214Comment: Testing | 150 - 400 K/uL | EXTERNAL | | | Count | performed at [facility];[address] | | LAB | | | Plasma | [address];[place] | | | | | | [address] | | | | + + + + + -+ | MPV | 7.6Comment: Testing | fl | EXTERNAL | | | | performed at [facility];[address] | | LAB | | | | [address];[place] | | | | | | [address] | | | | + + + + + -+ | Differentia | AUTOMATEDComment: | | EXTERNAL | | | l Type | Testing performed at | | LAB | | | | [facility];[address];[place] [address] | | | | + + + + + -+ | % Segmented | 52.22Comment: Testing | % | EXTERNAL | | | | performed at [facility];[address] | | LAB | | | Neutrophils | [address];[place] | | | | | | [address] | | | | + + + + + -+ | % | 30.51Comment: Testing | % | EXTERNAL | | | Lymphocytes | performed at [facility];[address] | | LAB | | | | [address];[place] | | | | | | [address] | | | | + + + + + -+ | % Monocytes | 11.41Comment: Testing | % | EXTERNAL | | | | performed at [facility];[address] | | LAB | | | | [address];[place] | | | | | | [address] | | | | + + + + + -+ | % | 5.19Comment: Testing | % | EXTERNAL | | | Eosinophils | performed at [facility];[address] | | LAB | | | | [address];[place] | | | | | | [address] | | | | + + + + + -+ | % Basophils | 0.67Comment: Testing | % | EXTERNAL | | | | performed at [facility];[address] | | LAB | | | | [address];[place] | | | | | | [address] | | | | + + + + + -+ | Absolute | 4.39Comment: Testing | 1.90 - 7.40 | EXTERNAL | | | Segmented | performed at [facility];[address] | K/uL | LAB | | | Neutrophils | [address];[place] | | | | | | [address] | | | | + + + + + -+ | Absolute | 2.57Comment: Testing | 1.00 - 3.90 | EXTERNAL | | | Lymphocytes | performed at [facility];[address] | K/uL | LAB | | | | [address];[place] | | | | | | [address] | | | | + + + + + -+ | Absolute | 0.96 (H)Comment: Testing | 0.00 - 0.80 | EXTERNAL | | | Monocytes | performed at [facility];[address] | K/uL | LAB | | | | [address];[place] | | | | | | [address] | | | | + + + + + -+ | Absolute | 0.44Comment: Testing | 0.00 - 0.50 | EXTERNAL | | | Eosinophils | performed at [facility];[address] | K/uL | LAB | | | | [address];[place] | | | | | | [address] | | | | + + + + + -+ | Absolute | 0.06Comment: Testing | 0.00 - 0.10 | EXTERNAL | | | Basophils | performed at [facility];888 | K/uL | LAB | | | | [address];[place] | | | | | | [address] | | | | + + + + + -+ | Na | 138Comment: Testing | 135 - 145 | EXTERNAL | | | | performed at [facility];888 | mmol/L | LAB | | | | [address];[place] | | | | | | [address] | | | | + + + + + -+ | K | 3.8Comment: Testing | 3.5 - 4.9 | EXTERNAL | | | | performed at [facility];888 | mmol/L | LAB | | | | [address];[place] | | | | | | [address] | | | | + + + + + -+ | Cl | 99Comment: Testing | 99 - 109 mmol/L | EXTERNAL | | | | performed at [facility];888 | | LAB | | | | [address];[place] | | | | | | [address] | | | | + + + + + -+ | CO2 | 29Comment: Testing | 23 - 32 mmol/L | EXTERNAL | | | | performed at [facility];888 | | LAB | | | | [address];[place] | | | | | | [address] | | | | + + + + + -+ | Anion Gap | 14Comment: Testing | 5 - 20 mmol/L | EXTERNAL | | | | performed at [facility];888 | | LAB | | | | [address];[place] | | | | | | [address] | | | | + + + + + -+ | Glucose, | 265 (H)Comment: Testing | 65 - 99 mg/dL | EXTERNAL | | | Fasting | performed at [facility];888 | | LAB | | | | [address];[place] | | | | | | [address] | | | | + + + + + -+ | BUN | 12Comment: Testing | 8 - 25 mg/dL | EXTERNAL | | | | performed at [facility];[address] | | LAB | | | | [address];[place] | | | | | | [address] | | | | + + + + + -+ | Creatinine | 1.1Comment: Testing | 0.70 - 1.30 | EXTERNAL | | | | performed at [facility];888 | mg/dL | LAB | | | | [address];[place] | | | | | | [address] | | | | + + + + + -+ | BUN/Creatin | 11Comment: Testing | | EXTERNAL | | | ine Ratio | performed at [facility];[address] | | LAB | | | | [address];[place] | | | | | | [address] | | | | + + + + + -+ | Calcium | 8.3 (L)Comment: Testing | 8.5 - 10.5 | EXTERNAL | | | | performed at [facility];888 | mg/dL | LAB | | | | [address];[place] | | | | | | [address] | | | | + + + + + -+ | Protein, | 6.9Comment: Testing | 6.3 - 8.2 g/dL | EXTERNAL | | | Total | performed at [facility];[address] | | LAB | | | | [address];[place] | | | | | | [address] | | | | + + + + + -+ | Albumin | 2.9 (L)Comment: Testing | 3.3 - 4.8 g/dL | EXTERNAL | | | | performed at [facility];[address] | | LAB | | | | [address];[place] | | | | | | [address] | | | | + + + + + -+ | Globulin | 4.0Comment: Testing | 1.3 - 4.9 g/dL | EXTERNAL | | | | performed at [facility];[address] | | LAB | | | | [address];[place] | | | | | | [address] | | | | + + + + + -+ | A/G Ratio | 0.7 (L)Comment: Testing | 1.0 - 2.4 | EXTERNAL | | | | performed at [facility];[address] | | LAB | | | | [address];[place] | | | | | | [address] | | | | + + + + + -+ | Bilirubin | 0.4Comment: Testing | 0.1 - 1.5 mg/dL | EXTERNAL | | | Total | performed at [facility];[address] | | LAB | | | | [address];[place] | | | | | | [address] | | | | + + + + + -+ | ALP, | 79Comment: Testing | 35 - 115 U/L | EXTERNAL | | | External | performed at [facility];[address] | | LAB | | | | [address];[place] | | | | | | [address] | | | | + + + + + -+ | AST | 24Comment: Testing | 10 - 45 U/L | EXTERNAL | | | | performed at [facility];[address] | | LAB | | | | [address];[place] | | | | | | [address] | | | | + + + + + -+ | ALT | 26Comment: Testing | 10 - 65 U/L | EXTERNAL | | | | performed at [facility];[address] | | LAB | | | | [address];[place] | | | | | | [address] | | | | + + + [...] | | | | | at [facility];[address];[place] [address] | | | | + + + + + -+ | CK, Total | 120Comment: Testing | 55 - 400 U/L | EXTERNAL | | | | performed at [facility];[address] | | LAB | | | | [address];[place] | | | | | | [address] | | | | + + + + + -+ | INR | 1.4Comment: REFERENCE | | [...] at [facility];[address] | | | | | | [address];[place] | | | | | | [address] | | | | + + + + + -+ | aPTT, | 27Comment: Testing | 23 - 32 seconds | EXTERNAL | | | Patient | performed at [facility];[address] | | LAB | | | | [address];[place] | | | | | | [address] | | | | + + + + + -+ | CK-MB | 1.6Comment: Testing | 0.5 - 3.6 ng/mL | EXTERNAL | | | | performed at [facility];[address] | | LAB | | | | [address];[place] | | | | | | [address] | | | | + + + + + -+ | CK-MB Index | 1.3Comment: CK INDEX | | EXTERNAL | | [...] | + +---------+ + + Troponin I (02/01/2016 9:10 AM PST) + + + + + [...] at [facility];[address] | | | | | [address];[place], [place] | | | | | | [address] | | | | + + + [...] + | Diagnosis | + + | Arm paresthesia, left Disturbance of skin sensation | + + | Chronic chest pain Chest pain, unspecified | + + | Type 2 diabetes mellitus with hyperglycemia, unspecified halfway insulin use status | + + documented in this encounter
--- OUTSIDE RECORDS SUMMARY | ~2019-10-12 | XMS | Encounter Summary ---
Demographics + + + | Address | [address] | | | [place] [address] | + + + | Home Phone [...] Sammi Kohler | ECON | [place] [address] | | + + + + + Care Team Providers + +------+ + | Care Carpenter Helper Maintenance Name | Role | Phone | + +------+ + | Mik Diego DO | PCP | | + +------+ + Encounter Details +--------+ + + + + | Date | Type | Department | Care Team | Description | +--------+ + + + + | 11/06/ | Orders Only | [facility] | Conversion | | | 2014 | | CENTER | Transaction, | | | | | ANTICOAGULATION | Provider Unknown | | | | | [facility] | | | | | | [address] | (Fax) | | | | | [place], [place] | | | | | | [address] | | | | | | [phone] | | | +--------+ + + + [...] encounter Progress Notes Jaelyn Chiang ARNP - 11/06/2014 1:22 PM PDTFormatting of this note might be different f rom the original. Progress Notes by CITLALY Romo at 11/06/141321 Author: CITLALY Romo Service: (none) Author Type: Advanced Registered Nurse Zaina ctitioner Filed: 11/06/14 1328 Encounter Date: 11/06/2014 Status: Signed Bever[employer] Consultant: CITLALY Romo (Advanced Registered Nurse Practitioner) S- Maintenance visit. INR check and warfarin dosing. Pt dosed warfarin as directed. No medication changes reported. No illnesses or ER visits. No increased bruising or bleeding. O- INR 2.1 A- Therapeutic INR P- Continue same dosage. Recheck INR in 3 weeks when pt returns from [place] documented in this encounter Plan of Treatment +--------+ + + + + | Date | Type | Specialty | Care Team | Description | +--------+ + + + + | 10/16/ | Anti-coag | Anticoagulation | Brittany Zaragoza | | | 2019 | visit | | CITLALY [address] | | | | | | [facility] | | | | | | [place] [address] | | | | | | [phone] | | | | | | | | +--------+ + + + + documented as of this encounter Procedures + +--------+ + + + | Procedure Name | Priori | Date/Time | Associated Diagnosis | Comments | | | ty | | | | + +--------+ + + + | POC INR | Routin | 11/06/2014 | | Results for this | | | e | 12:00 AM | | procedure are in the | | | | PDT | | results section. | + +--------+ + + + documented in this encounter Results POC INR (11/06/2014 12:00 AM PDT) + +-------+ + + + | Component | Value | Ref Range | Performed | Pathologist | | | | | At | Signature | + +-------+ + + + | INR | 2.1 | | EXTERNAL | | | | [...]
--- OUTSIDE RECORDS SUMMARY | ~2019-10-12 | XMS | Encounter Summary ---
Demographics + + + | Address | [address] | | | [place] [address] | + + + | Home Phone [...] + | Sammi Kohler | ECON | [place] [address] | | + + + + + Care Team Providers + +------+ + | Care Hand Launderer Name | Role | Phone | + +------+ + | Mireya Pack NP | PCP | | + +------+ + Reason for Visit + + + | Reason | Comments | + + + | Shortness of Breath | | + + + | Fever (9 Weeks To 74 | temp 103 per ems | | Years) | | + + + | Chest Pain | | + + + Auth/Cert +--------+--------+ + + + + | Status | Reason | Specialty | Diagnoses / | Referred By | Referred To | | | | | Procedures | Contact | Contact | +--------+--------+ + + + + | | | | Diagnoses | | | | | | | Febrile | | | | | | | illness, | | | | | | | acute | | | | | | | Atrial | | | | | | | fibrillation | | | | | | | with RVR | | | | | | | ([facility]) | | | | | | | Sepsis, due | | | | | | | to | | | | | | | unspecified | | | | | | | organism, | | | | | | | unspecified | | | | | | | whether | | | | | | | acute organ | | | | | | | dysfunction | | | | | | | present | | | | | | | ([facility]) | | | +--------+--------+ + + + + Encounter Details +--------+ + + + + | Date | Type | Department | Care Team | Description | +--------+ + + + + | 07/02/ | Hospital | [facility] | Marcos Nugent, | Sepsis, due to | | 2019 - | Encounter | [facility] | MD [address] | unspecified | | | | CARE FLOOR [address] | [place] [address] | organism, | | 07/04/ | | [address] | [phone] | unspecified whether | | 2019 | | [place], [place] | | acute organ | | | | [phone] | Kristian Meadows, | dysfunction present | | | | [phone] | MD [address] | ([facility]) (Primary Dx); | | | | | [place] [address] | Febrile illness, | | | | | [phone] | acute; Atrial | | | | | | fibrillation with | | | | | Agustín Box MD | RVR ([facility]); Positive | | | | | [address] | blood culture; | | | | | [place] [address] | Chronic obstructive | | | | | [phone] | pulmonary disease, | | | | | | unspecified COPD | | | | | | type ([facility]); | | | | | | Developmental delay; | | | | | | Type 2 diabetes | | | | | | mellitus with | | | | | | hyperglycemia, | | | | | | unspecified whether | | | | | | long term care pharmacist insulin | | | | | | use ([facility]) | +--------+ + + + + [...] + + + | Blood Pressure | 188/84 | 07/05/2019 2:58 PM | | | | | PDT | | + + + + + | Pulse | 86 | 07/05/2019 5:25 PM | | | | | PDT | | + + + + + | Temperature | 36.9 C (98.4 F) | 07/05/2019 2:58 PM | | | | | PDT | | + + + + + | Respiratory Rate | 26 | 07/05/2019 2:58 PM | | | | | PDT | | + + + + + | Oxygen Saturation | 97% | 07/05/2019 2:58 PM | | | | | PDT | | + + + + + | Inhaled Oxygen | - | - | | | Concentration | | | | + + + + + | Weight | 101.6 kg (223 lb | 07/04/2019 5:00 AM | | | | 15.8 oz) | PDT | | + + + + + | Height | 180.3 cm (5' 11") | 07/03/2019 10:18 AM | | | | | PDT | | + + + + + | Body Mass Index | 31.24 | 07/03/2019 10:18 AM | | | | | PDT [...] encounter Discharge Summaries Agustín Box MD - 07/05/2019 12:15 PM PDT Service: Hospitalist Physician Discharge Summary Pt: Norah Guzman AGE/SEX: 63 y.o. male ROOM: [facility]/8114- PCP: Mireya Pack NP : 1955 Admit date: 07/03/2019 Discharge date and time: 07/05/2019 11:15 PM Admitting Physician: Kristian Meadows MD Discharge Physician: Agustín Box MD Consults: Dr. Nicole Primary Discharge Diagnoses: Principal Problem: Sepsis Active Problems: Diabetes mellitus, type 2 HTN (hypertension) COPD (chronic obstructive pulmonary disease) Type 2 diabetes mellitus with hyperglycemia Chronic anticoagulation Obesity, Class I, BMI 30-34.9 Constipation Fever Bacteremia Atrial fibrillation with RVR Resolved Problems: * No resolved hospital problems. * Secondary Discharge Diagnoses: Nill Discharged Condition: poor Significant Diagnostic Studies/Procedures: Recent Results (from the past 360 hour(s)) XR Chest AP Portable Impression No active disease. Signed by: Irina Guzman Shawn Sign Date/Time: 07/03/2019 11:[address] Angiogram Pulmonary w Contrast Impression No acute cardiopulmonary disease. Lungs clear. No pulmonary embolism. Signed by: Irina Atkinson Zachary Sign Date/Time: 07/03/2019 10:55 PM HPI and Hospital Course: 63 y.o.malewith significant past medical history of developmentaldelay, hypertension, atrial fibrillation, obstructivesleep apnea, obesitywho presents with fever and chest pain. Patient reports he was in his normal state of health [id number]. The patient reported that he had increased fatigue andincreasednaps during the daylast we ek,he stopped taking his medications on Monday because he continued"notfeelingwell", then began to have a headache and palpitations over the weekend. This morning he knew it was his "atrial fibrillation",he checked his pulse and it was irregular and fast whichp romptedhim to call EMS. . In the emergency room the patient was found to be afebrile,in atrial fibrillation with ra pid ventricular rate,and hypertensive he was started on a Cardizem drip and given oral met oprolol.He was also found to have an elevated WBC 11.16 and lactate 3.1.He seemed 1 L normal saline and 2g Ceftriaxone. As per discussion with the patient at bedside his sympto ms include general body aches, fever, fever headache and palpitations. Patient was having a bacteremia and we were treating with gram-positive bacteremia probably possible contaminant. I saw the patient in the morning but later in the night he signed [facility]. I did not talk to the nurse so I did not talk to the patient at the t silva of leaving AMA Discharge Vitals: Vitals: 07/05/19 1057 07/05/19 1130 07/05/19 1458 07/05/19 1725 BP: 158/70 125/78 188/84 Pulse: 68 65 72 86 Resp: Temp: 36.6 C (97.9 F) 36.9 C (98.4 F) TempSrc: Oral Oral SpO2: 96% 95% 97% Weight: Height: LABS: Recent Labs Lab 07/06/19 0558 07/05/19 0725 07/04/19 0411 WBC 10.62 9.23 10.24 HGB 12.9* 13.0* 13.2 HCT 39.9 38.9* 40.0 PLT 237 227 250 MONOPCT 9.20 9.40 9.00 Recent Labs Lab 07/06/19 0558 07/05/19 0725 07/04/19 0411 07/03/19 1008 NA 141 140 138 139 K 3.4* 3.4* 3.5 3.3* CL 106 108 108 102 CO2 25 27 24 26 BUN 17 13 11 13 CALCIUM 8.8 8.5 8.3* 9.5 ALKPHOS 125* -- -- 159* ALT 12 -- -- 19 AST 16 -- -- 29 Recent Labs Lab 07/05/19 0725 07/03/19 1008 MG 1.6* 1.7 Recent Labs Lab 07/03/19 1008 INR 0.9 Disposition: He left AGAINST MEDICAL ADVICE Follow-Up: Mireya Pack, [facility] COURT REPORTER [address] [address] Signed: Agustín Box MD 07/09/2019 12:15 PM Portions of this chart may have been copied from previous notes for continuity of care purp ose Portions of this chart may have been created with [employer] voice recognition software. Occasi onal wrong-word or sound-alike substitutions may have occurred due to the inherent dangelo itations of voice recognition software. Please read the chart carefully and recognize, using context, where these substitutions have occurred. documented in this enco unter Discharge Instructions AttachmentsThe following attachments cannot be sent through Care Everywhere.Sepsis (Ukrainian )Sepsis, Understanding (Ukrainian)documented in this encounter Medications at Time of [...] +---------+ + + | carvedilol (COREG) | TAKE ONE TABLET BY | 180 | 3 | 06/28/19 | | | 12.5 mg tablet | MOUTH TWICE DAILY | tablet | | 20 | 0 | | | (WITH BREAKFAST & | | | | | | | dinner) | | | | | + + [...] tablet by | 60 | 4 | 05/30/19 | | | (APRESOLINE) 25 mg | mouth 2 times daily. | tablet | | 20 | 0 | | tabletIndications: | And may take | | | | | | Essential | additional 25mg by | | | | | | hypertension | mouth twice daily as | | | | | | | needed for BP > | | | | | | | 160/90 | | | | | + + [...] +---------+ + + | NIFEdipine (ADALAT | TAKE ONE TABLET BY | 90 | 3 | 06/28/19 | | | CC) 60 MG 24 hr | MOUTH DAILY | tablet | | 20 | 0 [...] documented as of this encounter Progress Notes Justine Patino RN - 07/05/2019 1:33 PM PDTReport was called to Eloina PRADO on 8RP. Pt transfe rred to room 8114 with all belongings. Justine Patino RN ONDAM Agustín cardona MD - 07/05/2019 10:45 AM PDTFormatting of this note might be different from guillermina sarmiento. Service: Hospitalist Progress Note Pt: Norah Andrea Guzman AGE/SEX: 63 y.o. male ROOM: [facility]/9109- : 1955 PCP: Mireya Pack NP ADMIT DATE: 07/03/2019 TODAY'S DATE: 07/05/2019 Hospital Day/Hospital Course: LOS: 2 days Per HPI 63 y.o. male with significant past medical history of developmental delay, hypertension, at rial fibrillation, obstructive sleep apnea, obesity who presents with fever and chest pain. Patient reports he was in his normal state of health until approximately 4 ago. The patient reported that he had increased fatigue and increased naps during the day last week, he stopp ed taking his medications on Monday because he continued "not feeling well", then began to h ave a headache and palpitations over the weekend. This morning he knew it was his "atrial f ibrillation", he checked his pulse and it was irregular and fast which prompted him to call EMS. . In the emergency room the patient was found to be afebrile, in atrial fibrillation with rap id ventricular rate, and hypertensive he was started on a Cardizem drip and given oral metop rolol. He was also found to have an elevated WBC 11.16 and lactate 3.1. He seemed 1 L norm al saline and 2g Ceftriaxone. As per discussion with the patient at bedside his symptoms inc lude general body aches, fever, fever headache and palpitations. SUBJECTIVE: Patient seen and examine. He is awake and wants to go home. No chest pain, SOB, RUBIN. No c ough on recumbency. Had no orthopnea or PND. No Abdominal pain, N/V or fever. Still feeling tired and fatigued. No dizziness or lightheadedness. Scheduled Medications: apixaban 5 mg Oral BID ARIPiprazole 5 mg Oral Daily atorvaSTATin 40 mg Oral Nightly budesonide-formoterol 2 puff Inhalation BID carvedilol 12.5 mg Oral BID WC cefTRIAXone 1 g Intravenous Q24H docusate sodium 100 mg Oral BID finasteride 5 mg Oral Daily hydrALAZINE 25 mg Oral TID insulin detemir 45 Units Subcutaneous Nightly insulin lispro 0-12 Units Subcutaneous 4x Daily WC and HS insulin lispro 10 Units Subcutaneous TID WC lisinopril 40 mg Oral Daily pantoprazole 40 mg Oral QAM AC polyethylene glycol 17 g Oral Daily sodium chloride (PF) 0.9% injection 20 mL Intracatheter 2 times per day tamsulosin 0.4 mg Oral BID vancomycin 15 mg/kg (Adjusted) Intravenous Q12H vancomycin per pharmacy Other Pharmacy Consult Continuous Infusions dextrose 10% dilTIAZem Stopped (07/04/19 1140) sodium chloride 0.9% Stopped (07/04/19 1910) PRN Medications acetaminophen, Hypoglycemia Management AND POCT Glucose AND dextrose AND dextro se 10%, hydrALAZINE, melatonin, ondansetron Allergy: Allergies Allergen Reactions Nitroglycerin Swelling Tongue swelling Vitamin B12 Rash Rash OBJECTIVE: Vitals: Patient Vitals for the past 24 hrs: BP Temp Temp src Pulse Resp SpO2 07/05/19 0800 184/80 36.8 C (98.2 F) Oral 78 23 07/05/19 0700 150/66 75 17 07/05/19 0630 151/67 07/05/19 0600 154/68 07/05/19 0515 191/87 07/05/19 0317 174/78 36.7 C (98 F) Oral 74 24 07/05/19 0151 160/70 07/05/19 0146 195/82 07/05/19 0143 195/82 07/04/19 2300 171/77 36.6 C (97.8 F) Axillary 66 24 95 % 07/04/192004 165/72 07/04/19 1930 179/77 07/04/19 1906 183/86 36.7 C (98.1 F) Oral 71 22 98 % 07/04/19 1705 174/81 36.8 C (98.3 F) Oral 70 26 97 % 07/04/19 1408 165/76 07/04/19 1235 156/89 66 07/04/19 1109 178/79 36.8 C (98.3 F) Oral 66 22 95 % I&O Detailed Table: Intake/Output Summary (Last 24 hours) at 07/05/2019 1045 Last data filed at 07/05/2019 0808 Gross per 24 hour Intake 1402 ml Output 2150 ml Net -748 ml Patient Vitals for the past 96 hrs: Weight 07/04/19 0500 101.6 kg (223 lb 15.8 oz) 07/03/19 1018 96.2 kg (212 lb) Hemodynamics Last 24hrs: Physical Examination: Constitutional: he is awake and alert. HEENT: Neck supple, no JVD, non icteric sclera. Cardiovascular: Normal rate, s1,s2 Pulmonary/Chest: Effort normal and breath sounds normal. No stridor. No respiratory distres s. no wheezes. no rales. exhibits no tenderness. Abdominal: Soft. NT Extremeties/Musculoskeletal: Normal range of motion.exhibits no tenderness. exhibits no ed dayana. Neurological: Alert and oriented to person, place, and time. Skin: Skin is warm and dry. No rash noted. No erythema. No pallor. Psychiatric: Has a normal mood and affect. Behavior is normal. Judgment normal. Not suicida l LABS: Recent Labs Lab 07/05/19 0725 07/04/19 0411 07/03/19 1008 WBC 9.23 10.24 11.16* HGB 13.0* 13.2 15.7 HCT 38.9* 40.0 47.4 PLT 227 250 294 MONOPCT 9.40 9.00 8.30 Recent Labs Lab 07/05/19 0725 07/04/19 0411 07/03/19 1008 NA 140 138 139 K 3.4* 3.5 3.3* CL 108 108 102 CO2 27 24 26 BUN 13 11 13 CALCIUM 8.5 8.3* 9.5 ALKPHOS -- -- 159* ALT -- -- 19 AST -- -- 29 Recent Labs Lab 07/05/19 0725 07/03/19 1008 MG 1.6* 1.7 Recent Labs Lab 07/03/19 1008 INR 0.9 Diagnostic Imaging: Impressions only: Recent Results (from the past 360 hour(s)) XR Chest AP Portable Impression No active disease. Signed by: Irina Guzman Shawn Sign Date/Time: 07/03/2019 11:[address] Angiogram Pulmonary w Contrast Impression No acute cardiopulmonary disease. Lungs clear. No pulmonary embolism. Signed by: Irina Atkinson, Rhys Sign Date/Time: 07/03/2019 10:55 PM PROBLEM LIST Principal Problem: Sepsis Active Problems: Diabetes mellitus, type 2 HTN (hypertension) COPD (chronic obstructive pulmonary disease) Type 2 diabetes mellitus with hyperglycemia Chronic anticoagulation Obesity, Class I, BMI 30-34.9 Constipation Fever Bacteremia Atrial fibrillation with RVR Resolved Problems: * No resolved hospital problems. * ASSESSMENT & PLAN 63 y.o. male with significant past medical history of developmental delay, hypertension, at rial fibrillation, obstructive sleep apnea, obesity who presents with fever and chest pain. Principal Problem: Bacteremia with fever with sepsis: He was septic when came to the hospital. Fever leukocytosis and tachycardia. Gram-positi ve cocci in clusters. Will have infectious diseases to see this pt. I doubt it is covered i nfection as initial testing is negative. Atrial fibrillation with RVR Atrial fibrillation with RVR. He is rate controlled. Diabetes mellitus, type 2 Compliance might be a concern. We will continue with insulin along with sliding scale. HTN (hypertension) Blood pressure appropriately controlled on hydralazine COPD (chronic obstructive pulmonary disease) Well compensated. Obesity, Class I, BMI 30-34.9 Counseled regarding the weight reduction constipation PRN laxative Resolved Problems: * No resolved hospital problems. * Agustín Box MD, FACP 07/05/2019 10:45 AM Portions of this chart may have been copied from previous notes for continuity of care purp ose Portions of this chart may have been created with [employer] voice recognition software. Occasi onal wrong-word or sound-alike substitutions may have occurred due to the inherent dangelo itations of voice recognition software. Please read the chart carefully and recognize, using context, where these substitutions have occurred. Genna Beckman RN - 12:26 AM PDTPt afebrile. SBP 150-190. PRN hydralazine given x1 (see MAR). HR remain s NSR. Pt did have a bradycardic episode around 0300, HR dropped into the 30's and then milvia darius after about 30 seconds. On RA. VQS. Pt had 8/10 h/a unrelieved by tylenol. 1 time orde r of oxy 5mg given. Pt continues to have out of control blood pressure. SBP now in 150s, vas otec not given. Problem: Infection Goal: Infection Symptom Resolution Outcome: Ongoing, progressing Problem: Adult Inpatient Plan of Care Goal: Plan of Care Review Outcome: Ongoing, progressing Problem: Skin Injury Risk Increased Goal: Skin Health and Integrity Outcome: Ongoing, progressing Chart check complete. Genna Cross RN upJustine johnston RN - 07/04/2019 7:22 PM PDTPt titrated off Cardizem gtt and has converted to NSR rates in the 60 's. Remains on RA, afebrile, uneventful hourly rounding. Receiving IV antibiotics. Repeat CO VID swab sent to for testing. Justine Patino RN Samantha hunter RPH - 07/04/2019 1:19 PM PDT Vancomycin Dosing Per Pharmacy Subjective/Objective Norah Guzman is a 63 y.o. male started on vancomycin 07/03 for r/o bacteremia, sepsis. Additional antimicrobials: ceftriaxone Quadriplegic/Paraplegic: no Diabetes: yes Baseline Serum Creatinine: 0.9 mg/dL Current Vital Signs: BP 156/89 | Pulse 66 | Temp 36.8 C (98.3 F) (Oral) | Resp 22 | Ht 1.803 m (5' 11") | Wt 101.6 kg (223 lb 15.8 oz) | SpO2 95% | BMI 31.24 kg/m Recent Labs Lab 07/04/19 0411 07/03/19 1008 WBC 10.24 11.16* PROCALCITONI -- <0.05 | <0.05 CREA 0.70 0.88 Estimated Creatinine Clearance: 129 mL/min (based on SCr of 0.7 mg/dL). Microbiology Results (72 hrs) Procedure Component Value Units Date/Time MRSA NAAT [[id number]] Collected: 07/03/19 1429 Order Status: Completed Lab Status: Final result Updated: 07/03/19 1644 Specimen: Tissue from Nares SOURCE: NARES(NOSE) Result NEGATIVE Comment: Testing performed at [facility] [place] [id number] Culture, Urine [[id number]] Collected: 07/03/19 1313 Order Status: Sent Lab Status: In process Updated: 07/03/19 1322 Specimen: Urine, Clean Catch Culture, Blood [[id number]] Collected: 07/03/19 1132 Order Status: Sent Lab Status: In process Updated: 07/03/19 1146 Specimen: Peripheral Blood Coronavirus (COVID-19) NAAT [[id number]] Collected: 07/03/19 1105 Order Status: Completed Lab Status: Final result Updated: 07/03/19 1252 Specimen: Tissue from Nasopharynx SARS-CoV-2, COREY (COVID-19) NEGATIVE Comment: Testing performed at [facility];[address] [place] [id number] Respiratory pathogen panel, NAAT [[id number]] Collected: 07/03/19 1105 Order Status: Completed Lab Status: Final result Updated: 07/03/19 1956 Specimen: Body Fluid from Nasopharynx Adenovirus DNA Not Detected Coronavirus 229E Not Detected Coronavirus HKU1 Not Detected Coronavirus NL63 Not Detected Coronavirus OC43 Not Detected Human Metapneumovirus Not Detected Rhinovirus/Enterovirus Not Detected Influenza A Not Detected Influenza B Not Detected Parainfluenza 1 Not Detected Parainfluenza 2 Not Detected Parainfluenza 3 Not Detected Parainfluenza 4 Not Detected Respiratory Syncytial Virus Not Detected Bordetella pertussis DNA Not Detected Chlamydia pneumoniae Not Detected Mycoplasma pneumoniae Not Detected Interpretation: -- A negative FilmArray RP result does not exclude the possibility of a viral or bacterial i nfection. Test results may also be affected by concurrent antiviral/antibacterial therapy or levels of organism in the specimen that are below the limit of detection for this test. Comment: Negative results in the setting of a respiratory illness may be due to infection with pathogens that are not detected by this test or lower respiratory tract infection that is not detected by a nasopharyngeal swab specimen. Testing performed by Molecular Methodology Testing performed at [facility], [address] [place] [address] Culture, Blood [[id number]] (Abnormal) Collected: 07/03/19 1050 Order Status: Completed Lab Status: Preliminary result Updated: 07/04/19 0855 Specimen: Blood from Line Special Requests R AC Special Requests Testing performed at [facility];[address] [place] [address] Gram Stain Result -- GRAM POSITIVE COCCI IN CLUSTERS SEEN IN ANAEROBIC BOTTLE Gram Stain Result -- SMEAR RESULTS CALLED TO AND READ BACK BY: FRAN De León AT [facility] 9RP BY AA AT 0605 ON 07/04/2019. Gram Stain Result -- GRAM POSITIVE COCCI IN CLUSTERS SEEN IN AEROBIC BOTTLE RESULT CULTURE IN PROGRESS RESULT GROWTH IN TWO OF TWO BOTTLES RESULT -- TIME TO DETECTION: 0.63 DAYS RESULT Testing performed at [facility], [address] [place] [address] Comment: Testing performed at [facility], [address] [place] [address] Recorded Adjusted [place] Dosing 101.6 kg (223 lb 15.8 oz) 85.8 kg (189 lb 3.2 oz) 75.3 kg (166 lb 0.1 oz) None Vancomycin Dosing History Date Dosing Regimen Admin Times Trough SCr Comments Day 1 07/03 LD: 2.25 g IV x1 MD: 1.25 g IV Q12H 1236 2300 0.9 Day 2 1100 2300 Day 3 (check cx on day 3) 1000 (Discontinue if cultures negative) Day 4 Day 5 *SCr = mg/dL [vanco] = mcg/mL Assessment/Plan Vancomycin Load: 2250 mg (26 mg/kg) IV x 1. Was sufficient Maintenance Dose: 1250 mg IV q12h (14.5 mg/kg/dose) Rationale: Based on Kadlec dosing nomogram, current renal function, and desired trough. Target trough: 15-20 mcg/ml Concurrent potentially nephrotoxic medications: none identified Culture monitoring: Will monitor culture(s) for growth, identification, and sensitivities. Plan for level: 07/05 at 1000. Pharmacy will continue to follow and make adjustments to vancomycin therapy as indicated. Thank You, Samantha Shah RPH, 07/04/2019, 1:17 PM Libby Wood RN - 07/04/2019 12:34 PM PDT 07/03/2019 Pt meets requirement for SEVERE SEPSIS/SEPTIC SHOCK as evidenced by SIRS TEMP 100.5 @1026 HR 157 @1018 RR 24 @1018 EOD LACTATE 2.6 @1133 Sepsis TIME ZERO: 07/02 @133 Sepsis team will be following. Please contact us with any questions/concerns. [phone] Agustín Adams MD - 07/04/2019 11:07 AM PDT Service: Hospitalist Progress Note Pt: Norah Guzman AGE/SEX: 63 y.o. male ROOM: [facility]/9109-01 : 1955 PCP: Mireya Pack NP ADMIT DATE: 07/03/2019 TODAY'S DATE: 07/04/2019 Hospital Day/Hospital Course: LOS: 1 day Per HPI 63 y.o. male with significant past medical history of developmental delay, hypertension, at rial fibrillation, obstructive sleep apnea, obesity who presents with fever and chest pain. Patient reports he was in his normal state of health until approximately 4 ago. The patient reported that he had increased fatigue and increased naps during the day last week, he stopp ed taking his medications on Monday because he continued "not feeling well", then began to h ave a headache and palpitations over the weekend. This morning he knew it was his "atrial f ibrillation", he checked his pulse and it was irregular and fast which prompted him to call EMS. . In the emergency room the patient was found to be afebrile, in atrial fibrillation with rap id ventricular rate, and hypertensive he was started on a Cardizem drip and given oral metop rolol. He was also found to have an elevated WBC 11.16 and lactate 3.1. He seemed 1 L norm al saline and 2g Ceftriaxone. As per discussion with the patient at bedside his symptoms inc lude general body aches, fever, fever headache and palpitations. SUBJECTIVE: Patient seen and examine. He is lying flat and talking to me. Not in any kind of distress .. No chest pain, SOB, RUBIN. No cough on recumbency. Had no orthopnea or PND. No Abdominal pa in, N/V or fever. Still feeling tired and fatigued. No dizziness or lightheadedness. Scheduled Medications: apixaban 5 mg Oral BID ARIPiprazole 5 mg Oral Daily atorvaSTATin 40 mg Oral Nightly budesonide-formoterol 2 puff Inhalation BID carvedilol 12.5 mg Oral BID WC cefTRIAXone 1 g Intravenous Q24H docusate sodium 100 mg Oral BID finasteride 5 mg Oral Daily hydrALAZINE 25 mg Oral TID insulin detemir 45 Units Subcutaneous Nightly insulin lispro 0-12 Units Subcutaneous 4x Daily WC and HS insulin lispro 10 Units Subcutaneous TID WC lisinopril 40 mg Oral Daily pantoprazole 40 mg Oral QAM AC polyethylene glycol 17 g Oral Daily sodium chloride (PF) 0.9% injection 20 mL Intracatheter 2 times per day tamsulosin 0.4 mg Oral BID Continuous Infusions dextrose 10% dilTIAZem 5 mg/hr (07/04/19 1101) sodium chloride 0.9% 100 mL/hr at 07/04/19 0412 PRN Medications acetaminophen, Hypoglycemia Management AND POCT Glucose AND dextrose AND dextro se 10%, hydrALAZINE, melatonin, ondansetron Allergy: Allergies Allergen Reactions Nitroglycerin Swelling Tongue swelling Vitamin B12 Rash Rash OBJECTIVE: Vitals: Patient Vitals for the past 24 hrs: BP Temp Temp src Pulse Resp SpO2 Weight 07/04/19 0822 177/74 65 07/04/19 0747 189/86 36.8 C (98.2 F) Oral 78 22 97 % 07/04/19 0500 101.6 kg (223 lb 15.8 oz) 07/04/19 0413 152/74 36.6 C (97.9 F) Oral 88 20 97 % 07/04/19 0200 145/68 71 19 07/04/19 0100 150/68 68 20 07/04/19 0000 158/65 67 07/03/19 2330 138/64 69 07/03/19 2300 140/73 74 20 97 % 07/03/19 2247 140/73 36.8 C (98.3 F) Oral 73 22 98 % 07/03/19 2200 146/69 69 07/03/19 2130 164/73 79 07/03/19 2030 181/86 36.7 C (98.1 F) Oral 105 20 97 % 07/03/191999 153/86 07/03/19 1930 152/72 07/03/19 1900 (!) 212/86 73 20 97 % 07/03/19 1825 (!) 207/96 07/03/19 1637 (!) 190/104 36.7 C (98.1 F) Oral 99 21 96 % 07/03/19 1601 (!) 176/91 92 20 98 % 07/03/19 1512 195/88 97 16 98 % 07/03/19 1433 108 20 97 % 07/03/19 1432 164/82 109 07/03/19 1430 164/82 112 (!) 32 97 % 07/03/19 1327 (!) 174/92 128 25 96 % 07/03/19 1155 157/80 125 29 96 % 07/03/19 1149 198/86 07/03/19 1148 124 27 97 % 07/03/19 1145 130 17 97 % 07/03/19 1131 (!) 196/133 129 27 95 % I&O Detailed Table: Intake/Output Summary (Last 24 hours) at 07/04/2019 1107 Last data filed at 07/04/2019 0539 Gross per 24 hour Intake 2869.35 ml Output 1200 ml Net 1669.35 ml Patient Vitals for the past 96 hrs: Weight 07/04/19 0500 101.6 kg (223 lb 15.8 oz) 07/03/19 1018 96.2 kg (212 lb) Hemodynamics Last 24hrs: Physical Examination: Constitutional: He is awake and alert and talking to me. HEENT: Neck supple, no JVD, non icteric sclera. Cardiovascular: Normal rate, regular rhythm, normal heart sounds with S1 and S2, and intact distal pulses. Exam reveals no gallop and no friction rub. No murmur heard. Pulmonary/Chest: Effort normal and breath sounds normal. No stridor. No respiratory distres s. no wheezes. no rales. exhibits no tenderness. Abdominal: Soft. NT Extremeties/Musculoskeletal: Normal range of motion.exhibits no tenderness. exhibits no ed dayana. Neurological: Alert and oriented to person, place, and time. Skin: Skin is warm and dry. No rash noted. No erythema. No pallor. Psychiatric: Has a normal mood and affect. Behavior is normal. Judgment normal. Not suicida l LABS: Recent Labs Lab 07/04/19 0411 07/03/19 1008 WBC 10.24 11.16* HGB 13.2 15.7 HCT 40.0 47.4 PLT 250 294 MONOPCT 9.00 8.30 Recent Labs Lab 07/04/19 0411 07/03/19 1008 NA 138 139 K 3.5 3.3* CL 108 102 CO2 24 26 BUN 11 13 CALCIUM 8.3* 9.5 ALKPHOS -- 159* ALT -- 19 AST -- 29 Recent Labs Lab 07/03/19 1008 MG 1.7 Recent Labs Lab 07/03/19 1008 INR 0.9 Diagnostic Imaging: Impressions only: Recent Results (from the past 360 hour(s)) XR Chest AP Portable Impression No active disease. Signed by: Irina Guzman Shawn Sign Date/Time: 07/03/2019 11:[address] Angiogram Pulmonary w Contrast Impression No acute cardiopulmonary disease. Lungs clear. No pulmonary embolism. Signed by: Irina Atkinson Zachary Sign Date/Time: 07/03/2019 10:55 PM PROBLEM LIST Principal Problem: Atrial fibrillation with RVR Active Problems: Diabetes mellitus, type 2 HTN (hypertension) COPD (chronic obstructive pulmonary disease) Type 2 diabetes mellitus with hyperglycemia Chronic anticoagulation Obesity, Class I, BMI 30-34.9 Constipation Fever Resolved Problems: * No resolved hospital problems. * ASSESSMENT & PLAN 63 y.o. male with significant past medical history of developmental delay, hypertension, at rial fibrillation, obstructive sleep apnea, obesity who presents with fever and chest pain. Principal Problem: Bacteremia with fever with sepsis: Was septic when came to the hospital. Fever leukocytosis and tachycardia. Gram-positive cocci in clusters. Will have infectious diseases to see this pt. I doubt it is covered infe ction as initial testing is negative Atrial fibrillation with RVR Atrial fibrillation with RVR. Is on home medication carvedilol and apixaban Diabetes mellitus, type 2 Compliance might be a concern. We will continue with insulin along with sliding scale. HTN (hypertension) Blood pressure appropriately controlled on hydralazine COPD (chronic obstructive pulmonary disease) Well compensated. Obesity, Class I, BMI 30-34.9 Counseled regarding the weight reduction constipation PRN laxative Resolved Problems: * No resolved hospital problems. * Agustín Box MD, FACP 07/04/2019 11:07 AM Portions of this chart may have been copied from previous notes for continuity of care purp ose Portions of this chart may have been created with [employer] voice recognition software. Occasi onal wrong-word or sound-alike substitutions may have occurred due to the inherent dangelo itations of voice recognition software. Please read the chart carefully and recognize, using context, where these substitutions have occurred. Linda Alexander RN - 07/04/2019 9:21 AM PDTFor COVID 19 rule-outs, patient should be placed on special droplet/c ontact precautions, in addition to standard precautions. Please order in addition to droplet precautions, contact precautions. Thank you! Linda Lester MT ([facility]) Devulcanizer Operator documented in this e ncounter H&P Notes Lesly Martin ARNP - 07/03/2019 1:46 PM PDTFormatting of this note might be different fro m the original. Pt: Norah Guzman AGE/SEX: 63 y.o. male ROOM: [facility] PCP: Mireya Pack NP : 1955 TODAY'S DATE: 07/03/2019 Date of Admission: 07/03/2019 Chief Complaint: Shortness of Breath; Fever (9 Weeks To 74 Years) (temp 103 per ems); and Chest Pain History of Present Illness: The patient is a 63 y.o. male with significant past medical history of developmental delay, hypertension, atrial fibrillation, obstructive sleep apnea, obesity who presents with fever and chest pain . Patient reports he was in his normal state of health until approximately 4 ago. The patient reported that he had increased fatigue and increased naps during the day last week, he stopped taking his medications on Monday because he continued "not feeling wel l", then began to have a headache and palpitations over the weekend. This morning he knew i t was his "atrial fibrillation", he checked his pulse and it was irregular and fast which pr ompted him to call EMS. . In the emergency room the patient was found to be afebrile, in atrial fibrillation with rap id ventricular rate, and hypertensive he was started on a Cardizem drip and given oral metop rolol. He was also found to have an elevated WBC 11.16 and lactate 3.1. He seemed 1 L norm al saline and 2g Ceftriaxone. As per discussion with the patient at bedside his symptoms inc lude general body aches, fever, fever headache and palpitations. PMHx: Past Medical History: Diagnosis Date Acute pulmonary embolism (HCC) 10/14/2017 Anxiety ARF (acute renal failure) ([facility]) 03/02/2013 Atrial fibrillation (HCC) Basal cell carcinoma 09/26/2012 arm and back COPD (chronic obstructive pulmonary disease) ([facility]) 03/02/2013 hypoxemia on 2 lts nc Depression Development delay Diabetes mellitus type II DVT (deep venous thrombosis) ([facility]) 03/29/2018 Facial droop 07/08/2013 GIB (gastrointestinal bleeding) 03/02/[address] Nur, rectal ulcers, nodule of GE junction Hypercholesterolemia 07/08/2013 Hyperlipidemia 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 Obesity, Class I, BMI 30-34.9 07/08/2013 WARD (obstructive sleep apnea) 08/11/2012 does not use CPAP because of the noise Other chronic pain Renal failure Stroke (HCC) TIA (transient ischemic attack) Unspecified visual disturbance reading glasses PSHx: Past Surgical History: Procedure Laterality Date ABDOMEN SURGERY CHOLECYSTECTOMY CHOLECYSTECTOMY, LAPAROSCOPIC 09/12/2012 Procedure: LAPAROSCOPIC - CHOLECYSTECTOMY; Surgeon: Jevon Vargas DO; Location: [facility] MAIN OR; Service: General; Laterality: N/A; COLONOSCOPY COLONOSCOPY 03/04/2013 Procedure: COLONOSCOPY; Surgeon: Howie Gibson MD; Location: [facility] ENDOSCOPY; Service: Gastroen terology; Laterality: N/A; HERNIA REPAIR 07/03/2013 Procedure: LAPAROSCOPIC - HERNIA - INCISIONAL; Surgeon: Jevon Vargas DO; Location: [facility] MAIN OR; Service: General; Laterality: N/A; KNEE SURGERY rt knee, patella LEG SURGERY LLE OTHER SURGICAL HISTORY UNLISTED PROCEDURE ARTHROSCOPY OTHER SURGICAL HISTORY Left 05/05/2014 SKIN LESION EXCISION - Procedure: EXCISION - LESION - FROZEN SECTION; Surgeon: Sy murcia MD; Location: [facility] MAIN OR; Service: Plastics; Laterality: Left; forearm SKIN BIOPSY SKIN CANCER EXCISION Left 10/10/2012 Procedure: EXCISION - SKIN CANCER; Surgeon: Sy Fierro MD; Location: [facility] MAIN OR; Service: Plastics; Laterality: Left; upper arm and upper back w/frozen section UPPER GASTROINTESTINAL ENDOSCOPY UPPER GASTROINTESTINAL ENDOSCOPY 03/03/2013 Procedure: ESOPHAGOGASTRODUODENOSCOPY; Surgeon: Howie Gibson MD; Location: [facility] ENDOSCOPY; Se rvice: Gastroenterology; Laterality: N/A; Prior To admission Meds: Outpatient Medications Marked as Taking for the 07/03/19 encounter (Hospital Encounter) Medication Sig [DISCONTINUED] acetaminophen (TYLENOL) 325 mg tablet Take 2 tablets by mouth every 4 ho urs as needed for Pain (or fever >= 38.6 C (101.5 F)). insulin detemir (LEVEMIR FLEXTOUCH) 100 units/mL injection (pen) Inject 45 Units under the skin nightly. insulin lispro (HUMALOG KWIKPEN) 100 units/mL injection (pen) Inject 20 Units under the skin 3 times daily (with meals). Home medications reconciliation was reviewed by myself. I carefully reviewed all the medi cations with the patient/family. All the dosages was confirmed with the patient to the best of patient's/Family knowledge. If dosages not confirmed but Pt. Is taking medications, I wi ll start lowest possible dose. Allergies: Nitroglycerin and Vitamin b12 Family Hx: family history includes Diabetes, NIDDM in his sister; Heart disease in his father and sist er; Other (see comment) in his brother. Social Hx: reports that he has never smoked. He has never used smokeless tobacco. He reports previous alcohol use. He reports that he does not use drugs. The patient reports that he has a caregiver three times a week or up to 20 hours, and a tiffanie se who comes in weekly and they help him with his medications Review of Symptoms: Constitutional: Positive for fever chills, activity changes, decreased appetite, and fatigu e. negative for diaphoresis, and unexpected weight change. HENT: Positive for headache and chronic dry cough. negative for hearing loss, ear pain, nos ebleeds, congestion, facial swelling, rhinorrhea, neck pain, neck stiffness, dental problem, tinnitus and ear discharge. Eyes: Negative for photophobia, pain, discharge, redness, itching and visual disturbance. Respiratory: Positive for shortness of breath, and chest pain. negative for apnea, cough, c hest tightness, shortness of breath and wheezing. Cardiovascular: Positive for chest pain, palpitations, irregular heartbeat and lower extrem ity edema. Gastrointestinal: Positive for bloating, abdominal pain and constipation. Negative for esau sea, vomiting, diarrhea, blood in stool, abdominal distention, anal bleeding and rectal pa in. Genitourinary: Positive for difficulty urinating. negative for dysuria, frequency, hematuri a, flank pain, and dyspareunia. Musculoskeletal: Negative for back pain, joint swelling, arthralgias and gait problem. Skin: Positive for old PEG tube site. negative for color change, pallor, rash and wound. Neurological: Negative for dizziness, tremors, seizures, syncope, weakness, light-headednes s, numbness and headaches. Hematological: Negative for adenopathy. Does not bruise/bleed easily. Psychiatric/Behavioral: Negative for suicidal ideas, hallucinations, behavioral problems, c onfusion and agitation. Objective: Vital Signs: BP (!) 174/92 | Pulse 128 | Temp (!) 38.1 C (100.5 F) (Oral) | Resp 25 | Ht 1.803 m (5' 11") | Wt 96.2 kg (212 lb) | SpO2 96% on room air | BMI 29.57 kg/m Physical Exam: Constitutional: Oriented to person, place, and time. Appears well-developed and obese. HEENT: Head: Normocephalic and atraumatic. Nose: Nose normal. Mouth/Throat: Oropharynx is clear and dry. Eyes: Conjunctivae and EOM are normal. Pupils are equal, round, and reactive to light. Righ t eye exhibits no discharge. Left eye exhibits no discharge. No scleral icterus. Neck: Normal range of motion. Neck supple. No JVD present. No tracheal deviation present. N o thyromegaly present. no cervical adenopathy. Cardiovascular: Irregular rate and rhythm. Atrial fibrillation with a rate of 113 on monito r. Normal heart sounds with S1 and S2, and [...] and oriented to person, place, and time. Developmental delay with spee ch impediment present. Displays normal reflexes. No cranial nerve deficit. Exhibits normal muscle tone. Coordination normal. Skin: Skin is warm and dry. No rash noted. No erythema. No pallor. Psychiatric: Has a normal mood and affect. Behavior is normal. Judgment normal. Not suicida l Data: Recent Results (from the past 24 hour(s)) CBC with Differential Result Value Ref Range WBC 11.16 (H) 3.80 - 11.00 K/uL RBC 5.78 (H) 4.20 - 5.70 M/uL Hemoglobin 15.7 13.2 - 17.0 g/dL Hematocrit 47.4 39.0 - 50.0 % MCV 82.0 80.0 - 100.0 fl MCH 27.2 27.0 - 34.0 pg MCHC 33.1 32.0 - 35.5 g/dL RDW-SD 39.7 37 - 53 fl Platelet Count 294 150 - 400 K/uL MPV 9.9 fl Diff Type AUTOMATED % nRBC 0.0 0 /100WBC % Neutrophils 48.80 % IMMATURE GRANULOCYTE 0.50 % % Lymphocytes 36.40 % Monocyte % 8.30 % Eosinophils % 5.20 % Basophils % 0.80 % Neutrophils, Absolute 5.44 1.90 - 7.40 K/uL IMMATURE GRANS AB 0.06 0.00 - 0.07 K/uL Absolute Lymphocytes 4.06 (H) 1.00 - 3.90 K/uL Absolute Monocytes 0.93 (H) 0.00 - 0.80 K/uL Eosinophils, Absolute 0.58 (H) 0.00 - 0.50 K/uL Basophils, Absolute 0.09 0.00 - 0.10 K/uL Comprehensive Metabolic Panel Result Value Ref Range Na 139 135 - 145 mmol/L K 3.3 (L) 3.5 - 4.9 mmol/L Cl 102 99 - 109 mmol/L CO2 26 23 - 32 mmol/L Anion Gap 14 5 - 20 mmol/L Glucose 336 (H) 65 - 99 mg/dL BUN 13 8 - 25 mg/dL Creatinine 0.88 0.70 - 1.30 mg/dL BUN/Creatinine Ratio 15 Calcium 9.5 8.5 - 10.5 mg/dL Protein, Total 6.9 6.3 - 8.2 g/dL Albumin 4.1 3.3 - 4.8 g/dL Globulin 2.8 1.3 - 4.9 g/dL A/G Ratio 1.5 1.0 - 2.4 BILIRUBIN, TOTAL 0.6 0.1 - 1.5 mg/dL ALK PHOS 159 (H) 35 - 115 U/L AST 29 10 - 45 U/L ALT 19 10 - 65 U/L Estimated GFR >60 >60 mL/min/1.73m2 Troponin I Result Value Ref Range Troponin I 0.038 0.00 - 0.04 ng/mL Protime INR Result Value Ref Range INR 0.9 Procalcitonin Result Value Ref Range PROCALCITONIN <0.05 <0.5 ng/mL B Type Natriuretic Peptide Result Value Ref Range BNP 104.37 (H) 0 - 100 pg/mL Procalcitonin Result Value Ref Range PROCALCITONIN <0.05 <0.5 ng/mL Magnesium Result Value Ref Range Magnesium 1.7 1.7 - 2.4 mg/dL D-Dimer Result Value Ref Range D-DIMER 1.39 (H) 0.19 - 0.50 mg/L FEU Lactic Acid Result Value Ref Range Lactate, Serum 2.6 (H) 0.4 - 2.0 mmol/L Coronavirus (COVID-19) NAAT Result Value Ref Range SARS-CoV-2, COREY (COVID-19) NEGATIVE NEG ECG 12 lead Result Value Ref Range INTERPRETATION TEXT Not Confirmed Lactic Acid Result Value Ref Range Lactate, Serum 3.1 (H) 0.4 - 2.0 mmol/L Urinalysis With Microscopic Result Value Ref Range Color, UA STRAW Clarity, UA CLEAR Specific [place], Urine 1.013 1.002 - 1.030 Leukocyte esterase, UA NEGATIVE NEG Nitrite, UA NEGATIVE NEG Urobilinogen, Ur NORMAL <1.6 mg/dL Protein, Urine (mg/dL) 30 (A) NEG mg/dL pH, Urine 7.0 5.0 - 8.0 Blood, UA NEGATIVE NEG Ketones, UA NEGATIVE NEG mg/dL Bilirubin, UA NEGATIVE NEG Glucose, Ur >500 (A) NEG mg/dL WBC UA 0-2 0 - 5 /hpf Red Blood Cells, Urine NONE SEEN 0 - 2 /hpf Squamous Epithelial Cells, Urine NONE SEEN /lpf Bacteria, Urine 1+ (A) NONE EKG: Results for orders placed or performed during the hospital encounter of 07/03/19 ECG 12 lead Result Value Ref Range INTERPRETATION TEXT Not Confirmed RADIOLOGY: Xr Chest Ap Portable Result Date: 07/03/2019 No active disease. Signed by: Irina Guzman Shawn Sign Date/Time: 07/03/2019 11:07 AM @ Active comorbid conditions Active comorbid conditions include: - dysrhythmias; atrial fibrillation; paroxysmal - hypertension; essential - PVD - COPD - sleep apnea; obstructive - obesity; BMI (30-39) Problem List: Principal Problem: Atrial fibrillation with RVR Active Problems: Diabetes mellitus, type 2 HTN (hypertension) COPD (chronic obstructive pulmonary disease) Type 2 diabetes mellitus with hyperglycemia Chronic anticoagulation Obesity, Class I, BMI 30-34.9 Constipation Assessment and Plan: 1. Atrial fibrillation with RVR (05/20/2014) Assessment: CHADS2 VASc score- 5, medication nonadherence due to not feeling well, ran o ut, and cost. Plan: - Restart home regimen Carvedilol and Apixaban - Wean off Cardizem drip as carvedilol is restarted the patients RVR secondary to lack of medication effect and fever - Present regimen: Plan to restart home carvedilol 12.5 twice daily - Continuous cardiac monitoring - EKG PRN rhythm or rate change - CBC and BMP in am 2. Diabetes mellitus, type 2 with hyperglycemia () Assessment: Blood glucose 336, Plan: -Inpatient blood sugar target 140 to 180 mg/dL. - Home regimen: Metformin, Lantus 45 units nightly, lispro 20 units 3 times daily with kaley ls - Present regimen: Lantus 45 units nightly, lispro 10 units 3 times daily with meals and s liding scale before meals and at bedtime - Diet: Low-fat low-cholesterol, consistent carbohydrate diet 3. HTN (hypertension) (09/24/2011) Assessment: BP 174/92, nonadherence with medications-same as #1 Plan: - Home regimen: Hydralazine 25 twice daily, lisinopril 40 daily and nifedipine 60 daily -Hospital regimen: - Restart home meds - We will continue to monitor - Discuss life style modification including sodium restriction, exercise and weight loss. - Hydralazine 25 mg IV PRN for SBP >160 - We will continue to monitor - Discuss life style modification including sodium restriction, exercise and weight loss. 4. Fever of Unknown Source Assessment: Patient reported 103.0 fever at home, T-max of 38.1 in ED. Plan: - Work up include for exclusion of COVID-19 - Consider f/u results of CT scan for ground glass opacities - Recommend rechecking COVID-19 PCR tomarrown 5. COPD (chronic obstructive pulmonary disease) (03/02/2013) Assessment: Patient reported history of COPD., Reports shortness and chest pain. Plan: - Continue home regimen: Symbicort - Monitor VS per unit routine - Oxygen Therapy as need 6. Chronic anticoagulation (10/12/2018) Assessment: Reports stopped taking Apixaban on Monday. History of pulmonary edema, DVT a nd PVD. Plan: - Restart home regimen of Apixaban - CTA of Chest r/o PE 9. Constipation (03/29/2018) Assessment: Patient reports feeling bloated, been constipated and reports very small peb ble like stools. Plan: - Docusate 100 mg po BID - Mirlax daily Patient's old records and labs were reviewed in detail and summarized. Code Status: Full Code CITLALY Marrero, [facility]- 07/03/2019 1:46 PM Portions of this chart may have been copied from previous notes for continuity of care purp ose. Portions of this chart may have been created with [employer] voice recognition software. Occasi onal wrong-word or sound-alike substitutions may have occurred due to the inherent dangelo itations of voice recognition software. Please read the chart carefully and recognize, using context, where these substitutions have occurred. Associated attestation - Kristian Meadows MD - 07/03/2019 8:13 PM PDTI have personally e xamined the patient and discussed with Lesly BOUCHER I agree with her assessment and plan, was developed conjointly. Patient with fever and A. fib with RVR on presentation. History of recent noncompliance wi th medical therapy secondary to social/antral stressors. Patient also presented with fever of unclear origin. Currently under PUI /droplet isolation with initial COVID-19 test negati ve/confirmatory test pending tomorrow along with ordered CT of the chest angiogram (to rule out PE along with to assess for any groundglass opacities and pulmonary kong) in view of e levated d-dimer level/and fever on presentation. Patient was restarted on his usual anticoagulation of apixaban along with rate limiting med ications including beta-blockers. Ventricular response with good response. We will plan to de-escalate Cardizem drip as tolerated during overnight. Case management consult for discharge planning including assistance with patient's medicati ons as it appears that financial stressors were predominantly responsible for patient's shira dherence. Kristian Meadows MD documented in this encounter Consult Notes Elba Paez MD - 07/04/2019 11:42 AM PDTAssociated Order(s): PROVIDER TO PROVIDER C ONSULT [facility] Service: Infectious Diseases Initial Consult Note Date of Admission: 07/03/2019 Reason for Consultation: Gram-positive sepsis Requesting Physician: Dr. Agustín Box, Hospitalist History Obtained From: Patient and Chart review; limited information from patient with bas ike cognitive function CHIEF COMPLAINT: Shortness of breath, chest pain and fever HISTORY OF PRESENT ILLNESS The patient is a 63 y.o. male with significant past medical history of developmental delay, depression, type 2 diabetes mellitus with neuropathy, long-term current use of insulin, ess ential hypertension, hyperlipidemia, obesity, prior stroke, history of pulmonary embolism in 2018, atrial fibrillation, COPD He presented to the [facility] ER on 07/03/2019 with complaints of chest pain, fever to 103 F and shortness of breath. He also had fatigue, malaise, some headaches and palpitations. initial ER vital signs showed patient was afebrile with a heart rate of 157/min, respirator y rate of 24/min, oxygen saturation of 96% in room air and blood pressure of 131/115. Exam was nonfocal on presentation. ER work-up showed WBC of 11,160 with 49% neutrophils, hemoglobin 15.7/hematocrit 47.4, plat elet count 294,000. Lactic acid was 2.6 then 3.1. Procalcitonin less than 0.05. Potassium 3.3, glucose 326, BUN 13/creatinine 1.88. LFTs were unremarkable except for marian line phosphatase 159. D-dimer was 1.39 Urinalysis showed proteinuria, glucosuria, 0-2 WBCs per high-power field, no RBCs with 1+ b acteria SARS-CoV-2 PCR was negative. Chest x-ray showed no acute disease Patient was given IV ceftriaxone in the ER along with IV fluids. He was placed on Cardizem drip and oral metoprolol for rate control of atrial fibrillation. The patient was admitted to the hospitalist service for atrial fibrillation with RVR. Admi tting hospitalist was quite concerned about COVID-19; chest CTA was done overnight which latisha wed no acute cardiopulmonary disease with clear lungs and no PE. COVID-19 PCR sent out to [facility] has been requested. On 07/02, recorded T-max 100.5 F. He is currently afebrile. He remains hypertensive. He is maintaining oxygen saturation of 95 to 97% in room air. Blood cultures from admission a re reported to be is growing gram-positive cocci in clusters in 2 out of 4 bottles. The zaira ent has been started on IV vancomycin per pharmacy protocol. Fever curve has improved today. Heart rate has also improved. He states he feels tired bu t denies chest pain, shortness of breath, cough, upper respiratory symptoms, abdominal pain, nausea, vomiting or diarrhea. He denies arthralgias, myalgias, new skin rash. He denies d ysuria. REVIEW OF SYSTEMS Complete review of the constitutional, ENT, cardiovascular, respiratory, gastrointestinal, genitourinary, integumentary, musculoskeletal, psychiatric, neurologic, heme/lymphatic syste ms is entirely negative except as described above in the history of the present illness. 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 Obesity, Class I, BMI 30-34.9 07/08/2013 WARD (obstructive sleep apnea) 08/11/2012 does not use CPAP because of the noise Other chronic pain Renal failure Stroke (HCC) TIA (transient ischemic attack) Unspecified visual disturbance reading glasses Past Surgical History: Procedure Laterality Date ABDOMEN SURGERY CHOLECYSTECTOMY CHOLECYSTECTOMY, LAPAROSCOPIC 09/12/2012 Procedure: LAPAROSCOPIC - CHOLECYSTECTOMY; Surgeon: Jevon Vargas DO; Location: [facility] MAIN OR; Service: General; Laterality: N/A; COLONOSCOPY COLONOSCOPY 03/04/2013 Procedure: COLONOSCOPY; Surgeon: Howie Gibson MD; Location: [facility] ENDOSCOPY; Service: Gastroen terology; Laterality: N/A; HERNIA REPAIR 07/03/2013 Procedure: LAPAROSCOPIC - HERNIA - INCISIONAL; Surgeon: Jevon Vargas DO; Location: [facility] MAIN OR; Service: General; Laterality: N/A; KNEE SURGERY rt knee, patella LEG SURGERY LLE OTHER SURGICAL HISTORY UNLISTED PROCEDURE ARTHROSCOPY OTHER SURGICAL HISTORY Left 05/05/2014 SKIN LESION EXCISION - Procedure: EXCISION - LESION - FROZEN SECTION; Surgeon: Sy murcia MD; Location: [facility] MAIN OR; Service: Plastics; Laterality: Left; forearm SKIN BIOPSY SKIN CANCER EXCISION Left 10/10/2012 Procedure: EXCISION - SKIN CANCER; Surgeon: Sy Fierro MD; Location: [facility] MAIN OR; Service: Plastics; Laterality: Left; upper arm and upper back w/frozen section UPPER GASTROINTESTINAL ENDOSCOPY UPPER GASTROINTESTINAL ENDOSCOPY 03/03/2013 Procedure: ESOPHAGOGASTRODUODENOSCOPY; Surgeon: Howie Gibson MD; Location: [facility] ENDOSCOPY; Se rvice: Gastroenterology; Laterality: N/A; Allergies Allergen Reactions Nitroglycerin Swelling Tongue swelling Vitamin B12 Rash Rash Medications Prior to Admission Medication Sig Dispense [...] Inhaler 0 carvedilol (COREG) 12.5 mg tablet TAKE ONE TABLET BY MOUTH TWICE DAILY (WITH BREAKFAST & dinner) (Patient not taking: Reported on 07/03/2019) 180 tablet 3 finasteride (PROSCAR) 5 mg tablet Take 1 tablet by mouth Daily. (Patient not taking: Re ported on 07/03/2019) 30 tablet 4 Glucose Blood (BLOOD GLUCOSE TEST STRIPS) STRP For blood sugar testing 4 times daily 40 0 each 3 hydrALAZINE (APRESOLINE) 25 mg tablet Take 1 tablet by mouth 2 times daily. And june dominique e additional 25mg by mouth twice daily as needed for BP > 160/90 (Patient not taking: Report ed on 07/03/2019) 60 tablet 4 HYDROcodone-acetaminophen (NORCO) 5-325 mg [...] (ADALAT CC) 60 MG 24 hr tablet TAKE ONE TABLET BY MOUTH DAILY (Patient not t aking: Reported on 07/03/2019) 90 tablet 3 omeprazole (PRILOSEC) 20 mg capsule TAKE ONE CAPSULE BY MOUTH EVERY MORNING (BEFORE HEAVENLY AKFAST) (Patient not taking: Reported on 07/03/2019) 90 capsule 3 tamsulosin (FLOMAX) 0.4 mg CAPS Take 1 capsule by mouth 2 times daily. (Patient not dominique ing: Reported on 07/03/2019) 60 capsule 4 Scheduled Medications apixaban 5 mg Oral BID ARIPiprazole 5 mg Oral Daily atorvaSTATin 40 mg Oral Nightly budesonide-formoterol 2 puff Inhalation BID carvedilol 12.5 mg Oral BID WC cefTRIAXone 1 g Intravenous Q24H docusate sodium 100 mg Oral BID finasteride 5 mg Oral Daily hydrALAZINE 25 mg Oral TID insulin detemir 45 Units Subcutaneous Nightly insulin lispro 0-12 Units Subcutaneous 4x Daily WC and HS insulin lispro 10 Units Subcutaneous TID WC lisinopril 40 mg Oral Daily pantoprazole 40 mg Oral QAM AC polyethylene glycol 17 g Oral Daily sodium chloride (PF) 0.9% injection 20 mL Intracatheter 2 times per day tamsulosin 0.4 mg Oral BID vancomycin 25 mg/kg (Adjusted) Intravenous Once vancomycin 15 mg/kg (Adjusted) Intravenous Q12H vancomycin per pharmacy Other Pharmacy Consult Continuous Infusions dextrose 10% dilTIAZem 5 mg/hr (07/04/19 1101) sodium chloride 0.9% 100 mL/hr at 07/04/19 0412 PRN Medications acetaminophen, Hypoglycemia Management AND POCT Glucose AND dextrose AND dextro se 10%, hydrALAZINE, melatonin, ondansetron Family History Problem Relation Age of [...] Lives alone x 1 wk, [facility], , 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 2 falls in the last 6 months. PHYSICAL EXAM Vital Signs: BP 178/79 | Pulse 66 | Temp 36.8 C (98.3 F) (Oral) | Resp 22 | Ht 1.803 m (5' 11") | Wt 101.6 kg (223 lb 15.8 oz) | SpO2 95% | BMI 31.24 kg/m Temp: [36.6 C (97.9 F)-36.8 C (98.3 F)] 36.8 C (98.3 F) Pulse: [65-130] 66 Resp: [16-32] 22 BP: (138-212)/(64-104) 178/79 Vital signs have been reviewed General: Elderly male, not in acute physical distress. Sleepy but easily arousable and con versant HEENT: Normocephalic. Anicteric sclera. No conjunctival lesions. EOM intact. No nasal m ucosal lesions. No sinus tenderness. No tragal tenderness. No visible oral labial lesions . Supple neck with no cervical lymphadenopathy Lungs: Symmetric expansion. No rales, wheezes or rhonchi noted Cardiovascular: Normal rate. No murmur or rubs Abdomen: No distention. Soft. No tenderness, rebound or guarding Skin: No rash Musculoskeletal: No inflamed-looking joints Neurologic: Oriented to person, place and year. Appears to be able to move all extremities with no tremors Psychiatric: No agitation DATA CBC: Lab Results Component Value Date WBC 10.24 07/04/2019 RBC 4.89 07/04/2019 RBC 5.53 09/21/2018 HGB 13.2 07/04/2019 HCT 40.0 07/04/2019 MCV 81.8 07/04/2019 MCH 27.0 07/04/2019 MCHC 33.0 07/04/2019 PLT 250 07/04/2019 MPV 9.7 07/04/2019 DIFFTYPE AUTOMATED 07/04/2019 CMP: Lab Results Component Value Date NA 138 07/04/2019 K 3.5 07/04/2019 CL 108 07/04/2019 CO2 24 07/04/2019 ANIONGAP 10 07/04/2019 GLUF 292 (H) 09/21/2018 BUN 11 07/04/2019 GLOB 2.7 09/21/2018 AGRATIO 1.5 07/03/2019 BILITOT 0.5 09/21/2018 AST 29 07/03/2019 ALT 19 07/03/2019 EGFR >60 07/04/2019 Component Latest Ref Rng & Units 07/03/2019 1:13 PM Color, UA STRAW Clarity, UA CLEAR Specific [place], Urine 1.002 - 1.030 1.013 Leukocyte esterase, UA NEG NEGATIVE Nitrite, UA NEG NEGATIVE Urobilinogen, Ur <1.6 mg/dL NORMAL Protein, Urine (mg/dL) NEG mg/dL 30 (A) pH, Urine 5.0 - 8.0 7.0 Blood, UA NEG NEGATIVE Ketones, UA NEG mg/dL NEGATIVE Bilirubin, UA NEG NEGATIVE Glucose, Ur NEG mg/dL >500 (A) WBC UA 0 - 5 /hpf 0-2 RBC UA 0 - 2 /hpf NONE SEEN Squamous epithelial, UA /lpf NONE SEEN Bacteria, Urine NONE 1+ (A) Component Latest Ref Rng & Units 04/13/2019 07/03/2019 07/03/2019 8:27 AM 10:48 AM 12:31 PM Lactate, Serum 0.4 - 2.0 mmol/L 2.6 (H) 2.6 (H) 3.1 (H) Component Latest Ref Rng & Units 07/03/2019 10:08 AM INR 0.9 Component Latest Ref Rng & Units 07/03/2019 07/03/2019 10:08 AM 10:08 AM PROCALCITONIN <0.5 ng/mL <0.05 <0.05 Component Latest Ref Rng & Units 10/14/2018 03/27/2019 05/17/2019 3:01 AM 3:46 PM 4:40 AM Hemoglobin A1c 4.0 - 6.0 % 11.0 (H) 9.1 (H) 9.3 (H) Estimated Average Glucose <154 mg/dL 269 (H) 214 (H) 220 (H) Microbiology: Component Latest Ref Rng & Units 07/03/2019 2:29 PM SOURCE NARES(NOSE) Result MRSNEG NEGATIVE 07/02 urine culture in process 07/02 blood cultures are growing gram-positive cocci in clusters in 2 bottles of 1 of 2 sets Component Latest Ref Rng & Units 07/03/2019 11:05 AM Adenovirus DNA NOTDET Not Detected Coronavirus 229E NOTDET Not Detected Coronavirus HKU1 NOTDET Not Detected Coronavirus NL63 NOTDET Not Detected Coronavirus OC43 NOTDET Not Detected Human Metapneumovirus NOTDET Not Detected Rhinovirus/Enterovirus NOTDET Not Detected Influenza a NOTDET Not Detected Influenza B NOTDET Not Detected Parainfluenza 1 NOTDET Not Detected Parainfluenza 2 NOTDET Not Detected Parainfluenza 3 NOTDET Not Detected Parainfluenza 4 NOTDET Not Detected Respiratory Syncytial Virus NOTDET Not Detected Bordetella pertussis DNA NOTDET Not Detected Chlamydia pneumoniae NOTDET Not Detected Mycoplasma pneumoniae NOTDET Not Detected Component Latest Ref Rng & Units 07/03/2019 11:05 AM SARS-CoV-2, COREY (COVID-19) NEG NEGATIVE Historic microbiology data: Urine culture from 2018: Proteus mirabilis resistant only to cefazolin and nitrofurantoin Imaging: Chest CTA FINDINGS: PULMONARY ARTERIES: No pulmonary embolism. RIGHT VENTRICLE TO LEFT VENTRICLE RATIO: Not applicable. (Maximum short axis diameter on axial image. Applicable only when pulmonary embolism present. Abnormal greater than or equal to 0.9.) CHEST Lungs, Pleura and Airways: No significant pulmonary abnormality. No airway narrowing or obstruction. No pleural effusion or pneumothorax. Mediastinum: No significant pericardial, great vessel or esophageal abnormality. No mediastinal mass. Lymph Nodes: No adenopathy. Upper Abdomen: No significant abnormality in the visualized upper abdomen. BODY WALL Soft Tissues: The soft tissues of the chest wall are unremarkable. Bones: No acute fracture or vertebral end plate destruction. No lytic or blastic lesion. IMPRESSION: No acute cardiopulmonary disease. Lungs clear. No pulmonary embolism. Signed by: Irina Atkinson Zachary Sign Date/Time: 07/03/2019 10:55 PM CXR FINDINGS: Heart size is normal. Lungs are clear. IMPRESSION: No active disease. Signed by: Irina Guzman, Bhavin Sign Date/Time: 07/03/2019 11:07 AM Medical record review: I have reviewed the patient's admission history and physical as well as progress notes from the current hospital stay. Emergency department notes have also been reviewed. Much of this information is summarized above in history of present illness. PROBLEM LIST Principal Problem: Sepsis Active Problems: Diabetes mellitus, type 2 HTN (hypertension) COPD (chronic obstructive pulmonary disease) Type 2 diabetes mellitus with hyperglycemia Chronic anticoagulation Obesity, Class I, BMI 30-34.9 Constipation Fever Bacteremia Atrial fibrillation with RVR Resolved Problems: * No resolved hospital problems. * ASSESSMENT & PLAN Principal Problem: Sepsis Active Problems: Diabetes mellitus, type 2 HTN (hypertension) COPD (chronic obstructive pulmonary disease) Type 2 diabetes mellitus with hyperglycemia Chronic anticoagulation Obesity, Class I, BMI 30-34.9 Constipation Fever Bacteremia Atrial fibrillation with RVR Resolved Problems: * No resolved hospital problems. * Sepsis on admission -Clinical context: History of developmental cognitive delay with 2018 brain imaging showin g chronic microvascular ischemic gliosis, type 2 diabetes mellitus with concern regarding me dication compliance, atrial fibrillation with rate now under control, morbid obesity, COPD -Septic parameters are better today -Blood cultures from admission are now growing gram-positive cocci in clusters in 2 out of 4 bottles. Repeat blood cultures have been requested -Question of viral infection. Chest x-ray shows no active disease. Chest CTA also shows no evidence of acute cardiopulmonary disease with no obvious lung abnormality. 07/02 COVID 1 9 NAAT and respiratory film array negative. Second COVID-19 test is being sent out [facility]. With this in process, maintain patient in special droplet/contact isolati on -History of UTI; patient currently denies UTI symptoms. Urine culture in process -GFR 129 Continue IV vancomycin, target trough of 15-20 with pharmacy dosing and ceftriaxone We will adjust antibiotics based on clinical course and further microbiology data Code Status: Full Code Primary Care Physician: Mireya Pack NP Thank you for allowing me to participate in the care of this patient. I will continue to follow with you. Elba Paez MD 07/04/2019 documented in this encounter ED Notes Jenifer Elmore RN - 07/03/2019 1:36 PM PDTPatient is unable to answer any questions rega rding his medication list. He reports that he just takes them out of a bubble pack. I have c [facility] pharmacy at the [facility] and they informed me that the only provider they c an see that has been prescribing him medication is Dr. Mireya Davis. He recently called the pharmacy to tell them not to fill any medications before calling him, especially if they hav e a copay. The pharmacy informed me that all his medications have copays. Medication list wa s faxed over. On hold is his carvedilol, nifedipine and omeprazole. He is sure that he has b een taking his insulin still but unsure of all other medications at this time. Provider has been notified. enifer Elmore RN - 07/03/2019 12:27 PM PDTFood order placed for patient at this time. Electronic ally signed by Jenifer Elmore RN at 07/03/2019 12:27 PM Marcos Delgadillo MD - 07/03/19 20 10:19 AM PDT [facility] Department of Emergency Medicine History of Present Illness Patient Identification Norah Guzman is a 63 y.o. male. Patient presented to the Emergency Department by: Chief Complaint Chief Complaint Patient presents with Shortness of Breath Fever (9 Weeks To 74 Years) temp 103 per ems Chest Pain 10:19 AM He has Raffi The patient presents to ED with complaints of Chest pain Location: left side Quality:tight chest pain Severity:moderate Context:Patient is still taking Eliquis and states he did not take his dose this morning. Bj delcid's chest pain is radiating into his neck. Timing:yesterday Duration:worsening Modifying factors:none The patient also complains of SOB, headache, diarrhea, fever Patient denies sore throat, dysuria or any additional symptoms .ROS Review of Systems Constitutional: Positive for fever. HENT: Negative for sore throat. Respiratory: Positive for shortness of breath. Cardiovascular: Positive for chest pain. Gastrointestinal: Positive for diarrhea. Genitourinary: Negative for dysuria. Neurological: Positive for headaches. All other systems reviewed and are negative. PCP: Mireya Pack NP Past Medical History: Diagnosis Date Acute pulmonary embolism (HCC) 10/14/2017 Anxiety ARF (acute renal failure) ([facility]) 03/02/2013 Atrial fibrillation (HCC) Basal cell carcinoma 09/26/2012 arm and back COPD (chronic obstructive pulmonary disease) ([facility]) 03/02/2013 hypoxemia on 2 lts nc Depression Development delay Diabetes mellitus type II DVT (deep venous thrombosis) ([facility]) 03/29/2018 Facial droop 07/08/2013 GIB (gastrointestinal bleeding) 03/02/[address] Nur, rectal ulcers, nodule of GE junction Hypercholesterolemia 07/08/2013 Hyperlipidemia 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 Obesity, Class I, BMI 30-34.9 07/08/2013 WARD (obstructive sleep apnea) 08/11/2012 does not use CPAP because of the noise Other chronic pain Renal failure Stroke (HCC) TIA (transient ischemic attack) Unspecified visual disturbance reading glasses Past Surgical History: Procedure Laterality Date ABDOMEN SURGERY CHOLECYSTECTOMY CHOLECYSTECTOMY, LAPAROSCOPIC 09/12/2012 Procedure: LAPAROSCOPIC - CHOLECYSTECTOMY; Surgeon: Jevon Vargas DO; Location: [facility] MAIN OR; Service: General; Laterality: N/A; COLONOSCOPY COLONOSCOPY 03/04/2013 Procedure: COLONOSCOPY; Surgeon: Howie Gibson MD; Location: [facility] ENDOSCOPY; Service: Gastroen terology; Laterality: N/A; HERNIA REPAIR 07/03/2013 Procedure: LAPAROSCOPIC - HERNIA - INCISIONAL; Surgeon: Jevon Vargas DO; Location: [facility] MAIN OR; Service: General; Laterality: N/A; KNEE SURGERY rt knee, patella LEG SURGERY LLE OTHER SURGICAL HISTORY UNLISTED PROCEDURE ARTHROSCOPY OTHER SURGICAL HISTORY Left 05/05/2014 SKIN LESION EXCISION - Procedure: EXCISION - LESION - FROZEN SECTION; Surgeon: Sy murcia MD; Location: [facility] MAIN OR; Service: Plastics; Laterality: Left; forearm SKIN BIOPSY SKIN CANCER EXCISION Left 10/10/2012 Procedure: EXCISION - SKIN CANCER; Surgeon: Sy Fierro MD; Location: [facility] MAIN OR; Service: Plastics; Laterality: Left; upper arm and upper back w/frozen section UPPER GASTROINTESTINAL ENDOSCOPY UPPER GASTROINTESTINAL ENDOSCOPY 03/03/2013 Procedure: ESOPHAGOGASTRODUODENOSCOPY; Surgeon: Howie Gibson MD; Location: [facility] ENDOSCOPY; Se rvice: Gastroenterology; [...] tablet Take 1 tablet by mouth Daily. 05/18/19 Emre Beal atorvaSTATin (LIPITOR) 40 mg tablet Take 1 [...] Pack NP carvedilol (COREG) 12.5 mg tablet TAKE ONE TABLET BY MOUTH TWICE DAILY (WITH BREAKFAST & di nner) 06/28/19 Mireya Pack NP finasteride (PROSCAR) 5 mg tablet Take 1 tablet by mouth Daily. 11/07/18 Mireya Pack NP Glucose Blood (BLOOD GLUCOSE TEST STRIPS) STRP For blood sugar testing 4 times daily 0 Mireya Pack NP hydrALAZINE (APRESOLINE) 25 mg tablet Take 1 tablet by mouth 2 times daily. And may take ad ditional 25mg by mouth twice daily as needed for BP > 160/90 05/30/19 Mireya Pack NP HYDROcodone-acetaminophen (NORCO) 5-325 mg per tablet Take 1-2 tablets by mouth every 4 remi rs as needed. 05/24/19 Mireya Pack NP insulin detemir (LEVEMIR [...] daily as needed. 03/27/19 Mireya Pack NP melatonin 3 mg TABS Take 1 tablet by mouth nightly as needed for Insomnia. 05/18/19 Cristo Ahn MD metFORMIN (GLUCOPHAGE) 500 mg tablet Take 1 tablet by mouth 2 times daily (with breakfast & dinner). 11/07/18 Mireya Pack NP NIFEdipine (ADALAT CC) 60 MG 24 hr tablet TAKE ONE TABLET BY MOUTH DAILY 06/28/19 Mireya Pack NP omeprazole (PRILOSEC) 20 mg capsule TAKE ONE CAPSULE BY MOUTH EVERY MORNING (BEFORE BREAKFA ST) 06/28/19 Mireya Pack NP tamsulosin (FLOMAX) 0.4 [...] file Gets together: Not on file Attends anabaptist service: Not on file Active member of [...] Lives alone x 1 wk, [facility], , 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 2 falls in the last 6 months. Family History Problem Relation Age of Onset Heart disease Father Heart disease Sister Diabetes, NIDDM Sister Other (see comment) Brother Heart Problems Physical Exam Vitals: 07/03/19 1148 07/03/19 1149 07/03/19 1155 07/03/19 1327 BP: 198/86 157/80 (!) 174/92 Pulse: 124 125 128 Resp: 27 29 25 Temp: TempSrc: SpO2: 97% 96% 96% Weight: Height: Temp: 37.2 C (98.9 F) Pulse: 157 Resp: 24 BP: (!) 131/115 SpO2: 96 % Vital sign interpretation: tachycardic, tachypneic, hypertensive Pulse Oximetry interpretation: normal General: Alert, no active distress Eyes: Normal inspection, EOMI, Head: NCAT ENT: Ears normal Nose normal Neck: Normal inspection, Supple, FROM without pain, Cardiovascular: Extremity perfusion appears normal Respiratory: Effort normal, No respiratory distress, Abdomen: Nondistended, Back: Normal inspection, normal movement. Skin: No [...] treatment in the Emergency Depart ment: Medications dilTIAZem in dextrose (CARDIZEM) 1 mg/mL infusion (15 mg/hr Intravenous Rate/Dose Change 1127) metoprolol succinate (TOPROL-XL) ER tablet 50 mg (has no administration in time range) dilTIAZem (CARDIZEM) injection 20 mg (20 mg Intravenous Given 07/03/19 1029) sodium chloride 0.9% (NS) bolus 2,259 mL (2,259 mLs Intravenous New Bag 07/03/19 1051) potassium chloride 20 mEq in sodium chloride 0.9% 250 mL IVPB (20 mEq Intravenous New Bag 1130) cefTRIAXone (ROCEPHIN) IVPB 2 g (0 g Intravenous Stopped 07/03/19 1324) MDM: Pleasant 63 y.o. male EKG done at 10:12 AM, rate 157, atrial fibrillation with RVR, rate related ST changes, EKG interpreted by myself the time of clinical encounter. Patient does not consent to electro cardioversion, will proceed with Cardizem at this time. 10:37 AM: I reviewed prior echo from October 2018, patient should tolerate fluid bolus Patient is febrile with tachycardia, hence has Sirs criteria with associated fever hence wi ll do septic work-up Also due to pandemic, will check covid 19, Medical Decision Making as of Jul 03 1335 Wed July 03, 2019 104 Patient is hyperglycemic without evidence of diabetic ketoacidosis Potassium is a little bit decreased at 3.3 We will give him potassium to maximize cardiac function as he has accelerated A. fib, also with any treatment of the glucose will potentially cause potassium to drop as well. 1052 Troponin negative, [address] Arnaud Davis on-call navigation officer I spoken to the primary's office, he had seen Dr. Sterling in January 2019 he was referred to [facility], but patient had declined that visit wit hout any explanation So patient currently does not have a navigation officer, cardiac medications are currently prescr ibed via PCP We called pharmacy in the [facility], they indicated that the patient had called a co uple of days ago, indicating to them that he did not want any medications filled that had co -pays. Hence patient has not had any medications for about 5 days now. I spoke with Dr. Arnaud Davis, he agrees that were close to where we want to be wi th heart rate, recommends that we give metoprolol succinate 50 mg orally and then wean him off the Cardizem. 1332 We have obtain medical records from Rx pharmacy, they do not have any anticoagulation medications on his medication list, hence it appears that he is not taking any anticoagulant s, They also had his calcium channel linda and beta-linda listed as "on hold" 10:47 AM Nursing staff indicates patient had already received a dose of tylenol at 5 AM 11:52 AM Patient has an elevated lactate 2.6. We've already given 30 mL/Kg fluid polus, tito l given 2 grams rocephin to cover sepsis. 12:40 PM: Patient feeling much better, requesting food, annoyed that monitor is beeping and disrupting him watching TV. Patient remains tachycardic, but has improved, heart rate initially in the 150s, is down to the 1 20-1 30 range, as he does have underlying infection, it is expected that he will have some component of worsening tachycardia with respect to his A. Fib. Refer to timestamp at 1324 pM for recommendations of navigation officer Records Reviewed Nursing note, medical history (Using the electronic record system of [facility]) Laboratory Evaluation Results Procedure Component Value Ref Range Date/Time D-Dimer [[id number]] (Abnormal) Collected: 07/03/19 1008 Order Status: Completed Specimen: Blood Updated: 07/03/19 1333 D-DIMER 1.39 0.19 - 0.50 mg/L FEU Urinalysis With Microscopic [[id number]] (Abnormal) Collected: 07/03/19 1313 Order Status: Completed Specimen: Urine Updated: 07/03/19 1330 Color, UA STRAW Clarity, UA CLEAR Specific [place], Urine 1.013 1.002 - 1.030 Leukocyte esterase, UA NEGATIVE NEG Nitrite, UA NEGATIVE NEG Urobilinogen, Ur NORMAL <1.6 mg/dL Protein, Urine (mg/dL) 30 NEG mg/dL pH, Urine 7.0 5.0 - 8.0 Blood, UA NEGATIVE NEG Ketones, UA NEGATIVE NEG mg/dL Bilirubin, UA NEGATIVE NEG Glucose, Ur >500 NEG mg/dL WBC UA 0-2 0 - 5 /hpf Red Blood Cells, Urine NONE SEEN 0 - 2 /hpf Squamous Epithelial Cells, Urine NONE SEEN /lpf Bacteria, Urine 1+ NONE Respiratory pathogen panel, NAAT [[id number]] Collected: 07/03/19 1105 Order Status: Sent Specimen: Body Fluid from Nasopharynx Updated: 07/03/19 1322 Culture, Urine [[id number]] Collected: 07/03/19 1313 Order Status: Sent Specimen: Urine, Clean Catch Updated: 07/03/19 1322 Lactic Acid [[id number]] (Abnormal) Collected: 07/03/19 1231 Order Status: Completed Specimen: Blood Updated: 07/03/19 1259 Lactate, Serum 3.1 0.4 - 2.0 mmol/L Coronavirus (COVID-19) NAAT [[id number]] Collected: 07/03/19 1105 Order Status: Completed Specimen: Tissue from Nasopharynx Updated: 07/03/19 1252 SARS-CoV-2, COREY (COVID-19) NEGATIVE NEG Procalcitonin [[id number]] Collected: 07/03/19 1008 Order Status: Completed Specimen: Blood Updated: 07/03/19 1147 PROCALCITONIN <0.05 <0.5 ng/mL Culture, Blood [[id number]] Collected: 07/03/19 1132 Order Status: Sent Specimen: Peripheral Blood Updated: 07/03/19 1146 Lactic Acid [[id number]] (Abnormal) Collected: 07/03/19 1048 Order Status: Completed Specimen: Blood Updated: 07/03/19 1133 Lactate, Serum 2.6 0.4 - 2.0 mmol/L Culture, Blood [[id number]] Collected: 07/03/19 1050 Order Status: Sent Specimen: Blood from Line Updated: 07/03/19 1129 Protime INR [[id number]] Collected: 07/03/191007 Order Status: Completed Specimen: Blood Updated: 07/03/19 1126 INR 0.9 Comprehensive Metabolic Panel [[id number]] (Abnormal) Collected: 07/03/191007 Order Status: Completed Specimen: Blood Updated: 07/03/19 1041 Na 139 135 - 145 mmol/L K 3.3 3.5 - 4.9 mmol/L Cl 102 99 - 109 mmol/L CO2 26 23 - 32 mmol/L Anion Gap 14 5 - 20 mmol/L Glucose 336 65 - 99 mg/dL BUN 13 8 - 25 mg/dL Creatinine 0.88 0.70 - 1.30 mg/dL BUN/Creatinine Ratio 15 Calcium 9.5 8.5 - 10.5 mg/dL Protein, Total 6.9 6.3 - 8.2 g/dL Albumin 4.1 3.3 - 4.8 g/dL Globulin 2.8 1.3 - 4.9 g/dL A/G Ratio 1.5 1.0 - 2.4 BILIRUBIN, TOTAL 0.6 0.1 - 1.5 mg/dL ALK PHOS 159 35 - 115 U/L AST 29 10 - 45 U/L ALT 19 10 - 65 U/L Estimated GFR >60 >60 mL/min/1.73m2 Troponin I [[id number]] Collected: 07/03/191007 Order Status: Completed Specimen: Blood Updated: 07/03/19 1041 Troponin I 0.038 0.00 - 0.04 ng/mL CBC with Differential [[id number]] (Abnormal) Collected: 07/03/191007 Order Status: Completed Specimen: Blood Updated: 07/03/19 1019 WBC 11.16 3.80 - 11.00 K/uL RBC 5.78 4.20 - 5.70 M/uL Hemoglobin 15.7 13.2 - 17.0 g/dL Hematocrit 47.4 39.0 - 50.0 % MCV 82.0 80.0 - 100.0 fl MCH 27.2 27.0 - 34.0 pg MCHC 33.1 32.0 - 35.5 g/dL RDW-SD 39.7 37 - 53 fl Platelet Count 294 150 - 400 K/uL MPV 9.9 fl Diff Type AUTOMATED % nRBC 0.0 0 /100WBC % Neutrophils 48.80 % IMMATURE GRANULOCYTE 0.50 % % Lymphocytes 36.40 % Monocyte % 8.30 % Eosinophils % 5.20 % Basophils % 0.80 % Neutrophils, Absolute 5.44 1.90 - 7.40 K/uL IMMATURE GRANS AB 0.06 0.00 - 0.07 K/uL Absolute Lymphocytes 4.06 1.00 - 3.90 K/uL Absolute Monocytes 0.93 0.00 - 0.80 K/uL Eosinophils, Absolute 0.58 0.00 - 0.50 K/uL Basophils, Absolute 0.09 0.00 - 0.10 K/uL I personally reviewed the lab results and they have been posted to the chart at the time of the patients disposition. Radiology and EKG Evaluation Imaging Results XR Chest AP Portable (Final result) Result time 07/03/19 11:07:27 Final result by Bhavin Guzman MD (07/03/19 11:07:27) Impression: No active disease. Signed by: Irina Guzman, Bhavin Sign Date/Time: 07/03/2019 11:07 AM Narrative: CHEST PORTABLE ONE VIEW CLINICAL INFORMATION: Shortness of breath, Fever. COMPARISON: XR CHEST AP PORTABLE (05/15/2019); XR CHEST PA AND LATERAL (04/13/2019); XR CHEST PA AND LATERAL (04/04/2019); XR CHEST 2 VIEW FRONTAL AND LATERAL (02/06/2018); FINDINGS: Heart size is normal. Lungs are clear. Disposition: FINAL IMPRESSION ICD-10-CM ICD-9-CM 1. Sepsis, due to unspecified organism, unspecified whether acute organ dysfunction present ([facility]) A41.9 038.9 995.91 2. Febrile illness, acute R50.9 780.60 3. Atrial fibrillation with RVR ([facility]) I48.91 427.31 ED Disposition ED Disposition Condition Comment Admit Clinical impression: Sepsis, due to unspecified organism, unspecified whether acute organ dysfunction present ([facility]) [[id number]] Clinical impression: Febrile illness, acute [373122] Clinical impression: Atrial fibrillation with RVR ([facility]) [842328] Admitting provider: SURESH HOSPITALIST [[id number]] Expected patient class: Inpatient [101] Level of service: Medical Follow-up Information Mireya Pack NP. Specialty: Nurse Practitioner - Primary Care Contact information: [address] [address] Discharge Medications: ED Prescriptions None Procedures Critical Care Note Performed by: Marcos Nugent MD Authorized by:Marcos Nugent MD Critical care provider statement: Critical care time (minutes): 95 Critical care time was exclusive of: Separately billable procedures and treating other pat ients I did not receive direction of critical care for this patient from another provider in my s pecialty. Critical care was necessary to treat or prevent imminent or life-threatening deterioration of the following conditions: Sepsis and atrial fibrillation with RVR Critical care was time spent personally by me on the following activities: Obtaining histo ry from patient or surrogate, examination of patient, evaluation of patient's response to tr eatment, discussions with consultants, development of treatment plan with patient or surroga te, review of old charts, re-evaluation of patient's condition, ordering and review of labor atory studies, ordering and performing treatments and interventions, pulse oximetry, and ord ering or review of radiographic studies This document has been prepared with a voice recognition system. The possibility of "sound alike" technical support engineer errors, and additions or deletions may occur. If there is any questio n, with respect to clarity of the message being conveyed, please contact me directly for cla rification. Any physical exam findings mentioned in the MDM take precedence over findings listed in phy sical exam section. Marcos Nugent MD, MPH Attending Provider Note: I, Marcos Nugent MD personally performed the services describe d in this documentation, as scribed by Zheng Padgett in my presence, and it is both accurate and complete. Chart Reviewed and Completed. Scribe: Kari Redd, scribing for and in the presence of Marcos Nugent MD. Completed by: Kari Chavarria 07/03/2019 1:36 PM Marcos Nugent MD 07/03/19 1336 enniffer Guerra RN - 07/03/2019 10:06 AM PDTBed: ED05 Expected date: Expected time: Means of arrival: Comments: 1723 documented in this encounter Miscellaneous Notes Plan of Jelena - Barbara Sim RN - 07/05/2019 8:23 PM PDTEntered patient's room at ift change. Patient was agitated pulling at IVs and telemetry wires. Patient requesting to l eave AMA. Lead RN notified and contacted family member. Family member, this RN and lead RN chantelle rowe to reason with patient. Education provided regarding leaving AMA, patient agreed and s igned form. Barbara Sim RN. P DTPlan of Care - Dino Elizondo RN - 07/05/2019 7:43 PM PDTPt demanding to leave facility AMA. Pt gives phone number for closest friend, Sammi. This RN spoke to Sammi on the esthela ne who states pt is able to make his own decisions. Sammi informed of pt's demand to leave facility, who asked to speak to pt to help encourage him to stay at facility to receive anant atment. Phone handed to pt who spoke with Sammi for 3 mins. After ending call pt continue to state intention to leave facility. AMA presented to pt and was read to him by EVE Ramirez which states benefit of staying at facility is to receive IV antibiotics to treat bacteremia and risks of leaving facility include but not limited to sepsis, coma and . Pt states understanding the risk and signed AMA form. Pt dressed, gathered all belongings, and a surgi amadou mask was provided to patient. Pt left facility via [facility] stating he will catc h a bus home and if he misses bus will call Sammi for a ride. Dino Elizondo RN 0 7:47 PM lan of Care - Justine Patino RN - 07/04/2019 4:47 PM PDT Problem: Adult Inpatient Plan of Care Goal: Absence of Hospital-Acquired Illness or Injury Outcome: Ongoing, progressing Intervention: Identify and Manage Fall Risk Note: Pt calls appropriately for assistance getting out of bed. Non skid socks on, call light and belongings are within reach, bed in low and locked position. Goal: Readiness for Transition of Care Outcome: Ongoing, progressing Intervention: Mutually Develop Transition Plan Note: Pt receiving IV antibiotics, aware of treatment plan, pending COVID test (sent to today 07/03) [facility] Divya Pryor [employer]TEGRATED [employer] FABRICATOR - 07/04/2019 12:04 PM PDTCare Management Initial Assessment Readmission Risk: HIGH Status Prior to Admission or Illness Arrival From: admitted as an inpatient, home or self-care Lives With: alone Living Arrangements: apartment Caregiver For: no one, unable/limited ability to care for self Patient s Caregiver: other (see comments)([facility]) Home Accessibility: no concerns, stairs to enter home Transportation Available: public transportation Able to return to prior living: yes Care Management Concerns Readmission Within Last 30 Days: no previous admission in last 30 days PCP: Mireya Pack NP Contact Information Family Contact Information: Name: Sammi Kohler (Ex In-law) [place] Needs Assessment Current Outpt/Agency/Support Groups: other (see comments) Community Agency Name: [facility] - Caregiving Anticipated Changes Related to Illness: none Concerns to be Addressed: financial/insurance concerns, medication concerns Services Anticipated at Discharge: none Equipment Used at Home: cane, straight, single point Equipment Needed after Discharge: none Pharmacy/Medication Needs: other (see comments)(Rx Pharmacy) Transportation Needs: public transportation Initial Plan Anticipated Discharge Disposition: home Expected DC Date: yes Steps Taken Toward Discharge: Initial assessment completed Next Steps: CM to follow for discharge planning Notes: Pt resides alone. Pt has a caregiver 20 hours a month through [facility] ([facility]). Pt u ses a cane for ambulating. Pt uses the bus or [employer] for transporting. Pt does not have home health, oxygen, CPAP, or outpatient services. Pt previously discharged to a SNF and do es not want to go back. Pt reports concerns for medications costs. Pt reports that he does n ot qualify for Medicaid and has a $2,000 spend down. Pt plans to return home at discharge. P t will need assistance with medication at discharge. Electronically signed: QUINN BOJORQUEZ 07/04/2019 12:04 PM lan of Genna Alvarado RN - 07/04/2019 12:22 AM PDTPt remains in A fib, rate controlled with cradiz em gtt. Goal of SBP < 160, Dr Ahn notified of sustained SBP in 180-200s, telephone order for cardizem gtt to be titrated to keep SBP < 150 but keep HR > 50. Cardizem at 15mg/hr. Pt educated about call light use and this RN to cluster care. Pt AO but has baseline disabilit y making difficult to understand. Denies SOB. VQS. On RA. Pt needs to be swabbed today after 1300 for COVID; test to be sent to . CT results posted. Problem: Infection Goal: Infection Symptom Resolution Outcome: Ongoing, progressing Pt remains afebrile. No cough noted. WBC are elevated however. Pt to receive IV abx. Remai ns on isolation for r/o of COVID. Problem: Skin Injury Risk Increased Goal: Skin Health and Integrity Outcome: Ongoing, progressing Pt is independent in bed. Drinks adequate amounts of fluid and is receiving IV hydration. Rash on skin is baseline per pt. Chart check complete. Genna Cross RN lan of Joy Marin RN - 07/03/2019 7:44 PM PDTPatient calls repeatedly for same issue, patient edu cated on use of call light, continues to call repeatedly. Patient educated on calling prior to getting up, has complied. Patient's 2 hr covid test negative, however, d/t fever will h ave test sent to , have not confirmed the collection of this, passed onto weight shifter RN. Diltiazem gtt weaned down to 10. SBP elevated, given PO hydralazine, SBP remained elevated , given PRN hydralazine w/ change of shift. Patient is A&Ox4, but does appear to be mentall y delayed. Chart check complete. Problem: Fall Injury Risk Goal: Absence of Fall and Fall-Related Injury Outcome: Ongoing, progressing Problem: Infection Goal: Infection Symptom Resolution Outcome: Ongoing, progressing documented in this encounter Plan of Treatment +--------+ + + + + | Date | Type | Specialty | Care Team | Description | +--------+ + + + + | 10/16/ | Anti-coag | Anticoagulation | Brittany Zaragoza | | | 2019 | visit | | [address] | | | | | | [place], | | | | | | [place] [address] | | | | | | [phone] | | | | | | | | +--------+ + + + + + +------+--------+ + + | Name | Type | Priori | Associated Diagnoses | Date/Time | | | | ty | | | + +------+--------+ + + | ED INFORMATION | COLTON | Routin | | 07/03/2019 10:06 AM | | EXCHANGE | | e | | PDT | + +------+--------+ + + documented as of this encounter Procedures + +--------+ + + + | Procedure Name | Priori | Date/Time | Associated Diagnosis | Comments | | | ty | | | | + +--------+ + + + | LABS - EXTERNAL SCAN | [...] + + | MAGNESIUM | Routin | 07/05/2019 | | Results for this | | | e | 7:25 AM | | procedure are in the | | | | PDT | | results section. | + +--------+ + + + | BASIC METABOLIC | Timed | [...] | + +--------+ + + + | MISC LAB REFERRAL | Routin | 07/04/2019 | | Results for this | | | e | 2:35 PM | | procedure are in the | | | | PDT | | results section. | + +--------+ + + + | MISC LAB FEE | Routin [...] + + + | CBC WITH | Timed | 07/04/2019 | | Results for this | | DIFFERENTIAL | | 4:11 AM | | procedure are in the | | | | PDT | | results section. | + +--------+ + + + | BASIC METABOLIC | Timed | 07/04/2019 | | Results for this | | PANEL | | 4:11 AM | | procedure are in the | | | | PDT | | results section. | + +--------+ + + + | CT ANGIOGRAM | ESCOBAR | [...] + + + | MRSA NAAT | STAT | [...] +--------+ + + + | CORONAVIRUS | STAT | 07/03/2019 | | Results for this | | (COVID-19) NAAT | | 11:05 AM | | procedure are in the | | | | PDT | | results section. | + +--------+ + + + | RESPIRATORY VIRUS | STAT | [...] + + + | PROCALCITONIN, SERUM | Add-On | 07/03/2019 | | Results for this | | | | 10:08 AM | | procedure are in the | | | | PDT | | results section. | + +--------+ + + + | PROCALCITONIN, SERUM | STAT | [...] +--------+ + + + | D-DIMER | Add-On | 07/03/2019 [...] + + | B TYPE NATRIURETIC | Add-On | 07/03/2019 | | Results for this | | PEPTIDE | | 10:08 AM | | procedure are in the | | | | PDT | | results section. | + +--------+ + + + | MAGNESIUM | Add-On | 07/03/2019 | | Results for this | | | | 10:08 AM | | procedure are in the | | | | PDT | | results section. | + +--------+ + + + | COMPREHENSIVE | STAT | 07/03/2019 [...] | | | 10:06? | | | SIMÓN, | | | NORAH | | | | | | M?MRN: | | | | | | [id number] | | | [id number] | | | riteri | | | [...] | | [facility] | | | [place] | | | [place] | | | [...] | | | [place] | | | [employer] Branch Manager | | | al | | [...] | | | MIREYA, | | | DISTRICT [employer] REPORTER | | | Nurse | | | [...] | +---+--------+ documented in this encounter Results LABS - EXTERNAL SCAN (07/09/2019 12:00 AM PDT) + + + | Narrative | Performed At | + + + | Ordered by an | | | unspecified provider. | | + + + POC Glucose (07/05/2019 5:18 PM PDT) + + + + [...] | LABORATORY | | | | [address];[place] | | | | | | [address] | | | | + + + + + + + + | Specimen | + + | | + + + + + + + | Performing | Address | City/State/Zipcode | Phone Number | | Organization | | | | + + + + + | [facility] | [address] | [place] [address] | [phone] | + + + + + POC Glucose (07/05/2019 10:55 AM PDT) + + + + + + | Component | Value | Ref Range | Performed | Pathologist | | | | | At | Signature | + + + + + + | Glucose, | 195 (H)Comment: Testing | 65 - 99 mg/dL | [facility] | | | POC | performed at [facility];[address] | | LABORATORY | | | | [address];[place] | | | | | | [address] | | | | + + + + + + + + | Specimen | + + | | + + + + + + + | Performing | Address | City/State/Zipcode | Phone Number | | Organization | | | | + + + + + | [facility] | [address] | [place] [address] | [phone] | + + + + + POC Glucose (07/05/2019 8:12 AM PDT) + + + + + [...] | LABORATORY | | | | [address];[place] | | | | | | [address] | | | | + + + + + + + + | Specimen | + + | | + + + + + + + | Performing | Address | City/State/Zipcode | Phone Number | | Organization | | | | + + + + + | [facility] | [address] | [place] [address] | [phone] | + + + + + Culture, Blood (07/05/2019 7:32 AM PDT) + + + + + + | Component | Value | Ref Range | Performed | Pathologist | | | | | At | Signature | + + + + + + | RESULT | NO GROWTH 6 DAYS | | [facility] | | | | | | LABORATORY | | + + + + + + | RESULT | Testing performed at | | [facility] | | | | [facility], [address] | | LABORATORY | | | | [place], [place] | | | | | | [id number]: Testing | | | | | | performed at [facility], [address] | | | | | [facility] | | | | | | [place] [address] | | | | + + + + + + + + | Specimen | + + | Blood - Peripheral | | blood specimen | | (specimen) | + + + + + + + | Performing | Address | City/State/Zipcode | Phone Number | | Organization | | | | + + + + + | [facility] | [address] | [place] [address] | [phone] | + + + + + Culture, Blood (07/05/2019 7:31 AM PDT) + + + + [...] RESULT | Testing performed at | | [facility] | | | | [facility], [address] | | LABORATORY | | | | [place] | | | | | | [id number]: Testing | | | | | | performed at [facility], [address] | | | | | | [facility] [place], | | | | | | [place] [address] | | | | + + + + + + + + | Specimen | + + | Blood - Peripheral | | blood specimen | | (specimen) | + + + + + + + | Performing | Address | City/State/Zipcode | Phone Number | | Organization | | | | + + + + + | [facility] | [address] | [place] [address] | [phone] | + + + + + Magnesium (07/05/2019 7:25 AM PDT) + + + + + + | Component | Value | Ref Range | Performed | Pathologist | | | | | At | Signature | + + + + + + | Magnesium | 1.6 (L)Comment: Testing | 1.7 - 2.4 mg/dL | [facility] | | | | performed at [facility];[address] | | LABORATORY | | | | [address];[place] | | | | | | [address] | | | | + + + + + + + + | Specimen | + + | Blood | + + + + + + + | Performing | Address | City/State/Zipcode | Phone Number | | Organization | | | | + + + + + | [facility] | [address] | [place] [address] | [phone] | + + + + + CBC with Differential (07/05/2019 7:25 AM PDT) + + + + + + | Component | Value | Ref Range | Performed | Pathologist | | | | | At | Signature | + + + + + + | WBC | 9.23 | 3.80 - 11.00 | [facility] | | | | | K/uL | LABORATORY | | + + + + + + | Red Blood | 4.71 | 4.20 - 5.70 | [facility] | | | Cells | | M/uL | LABORATORY | | + + + + + + | Hemoglobin | 13.0 (L) | 13.2 - 17.0 | [facility] | | | | | g/dL | LABORATORY | | + + + + + + | Hematocrit | 38.9 (L) | 39.0 - 50.0 % | [facility] | | | | | | LABORATORY | | + + + + + + | MCV | 82.6 | 80.0 - 100.0 fl | [facility] | | | | | | LABORATORY | | + + + + + + | MCH | 27.6 | 27.0 - 34.0 pg | [facility] | | | | | | LABORATORY | | + + + + + + | MCHC | 33.4 | 32.0 - 35.5 | [facility] | | | | | g/dL | LABORATORY | | + + + + + + | RDW-SD | 41.0 | 37 - 53 fl | [facility] | | | | | | LABORATORY | | + + + + + + | Platelet | 227 | 150 - 400 K/uL | [facility] | | | Count | | | LABORATORY | | + + + + + + | MPV | 9.9Comment: NO NORMAL | fl | [facility] | [...] + + + + | % | 55.40 | % | [facility] | | | Neutrophils | | | LABORATORY | | + + + + + + | IMMATURE | 0.40 | % | [facility] | | | GRANULOCYTE | | | LABORATORY | | + + + + + + | % | 27.40 | % | [facility] | | | Lymphocytes | | | LABORATORY | | + + + + + + | Monocyte % | 9.40 | % | [facility] | | | | | | LABORATORY | | + + + + + + | Eosinophils | 6.70 | % | [facility] | | | % | | | LABORATORY | | + + + + + + | Basophils % | 0.70 | % | [facility] | | | | | | LABORATORY | | + + + + + + | Neutrophils | 5.11 | 1.90 - 7.40 | [facility] | | | , Absolute | | K/uL | LABORATORY | | + + + + + + | IMMATURE | 0.04Comment: NOTE NEW | 0.00 - 0.07 | [facility] | | | GRANS AB | REFERENCE RANGE | K/uL | LABORATORY | | + + + + + + | Absolute | 2.53 | 1.00 - 3.90 | [facility] | | | Lymphocytes | | K/uL | LABORATORY | | + + + + + + | Absolute | 0.87 (H) | 0.00 - 0.80 | [facility] | | | Monocytes | | K/uL | LABORATORY | | + + + + + + | Eosinophils | 0.62 (H) | 0.00 - 0.50 | [facility] | | | , Absolute | | K/uL | LABORATORY | | + + + + + + | Basophils, | 0.06Comment: Testing | 0.00 - 0.10 | [facility] | | | Absolute | performed at [facility], [address] K/uL | LABORATORY | | | [address], | | | | | | [place] [address] | | | | + + + + + + + + | Specimen | + + | Blood | + + + + + + + | Performing | Address | City/State/Zipcode | Phone Number | | Organization | | | | + + + + + | [facility] | [address] | [place] [address] | [phone] | + + + + + Basic Metabolic Panel (07/05/2019 7:25 AM PDT) + + + + [...] + + + | Anion Gap | 8 | 5 - 20 mmol/L | [facility] | | | | | | LABORATORY | | + + + + + + | Glucose | 183 (H) | 65 - 99 mg/dL | [...] | 8.5 | 8.5 - 10.5 | [facility] | [...] | | | | | performed at [facility], [address] | | | | | | [facility], | | | | | | [place] [address] | | | | + + + + + + + + | Specimen | + + | Blood | + + + + + + + | Performing | Address | City/State/Zipcode | Phone Number | | Organization | | | | + + + + + | [facility] | [address] | [place] [address] | [phone] | + + + + + POC Glucose (07/05/2019 7:01 AM PDT) + + + + + + | Component | Value | Ref Range | Performed | Pathologist | | | | | At | Signature | + + + + + + | Glucose, | 197 (H)Comment: Testing | 65 - 99 mg/dL | [facility] | | | POC | performed at [facility];[address] | | LABORATORY | | | [address];[place], [place] | | | | | | [address] | | | | + + + + + + + + | Specimen | + + | | + + + + + + + | Performing | Address | City/State/Zipcode | Phone Number | | Organization | | | | + + + + + | [facility] | [address] | [place] [address] | [phone] | + + + + + POC Glucose (07/05/2019 3:25 AM PDT) + + + + + [...] | LABORATORY | | | | [address];[place], [place] | | | | | | [address] | | | | + + + + + + + + | Specimen | + + | | + + + + + + + | Performing | Address | City/State/Zipcode | Phone Number | | Organization | | | | + + + + + | [facility] | [address] | [place] [address] | [phone] | + + + + + POC Glucose (07/04/2019 9:34 PM PDT) + + + + + + | Component | Value | Ref Range | Performed | Pathologist | | | | | At | Signature | + + + + + + | Glucose, | 218 (H)Comment: Testing | 65 - 99 mg/dL | [facility] | | | POC | performed at [facility];[address] | | LABORATORY | | | | [address];[place] | | | | | | [address] | | | | + + + + + + + + | Specimen | + + | | + + + + + + + | Performing | Address | City/State/Zipcode | Phone Number | | Organization | | | | + + + + + | [facility] | [address] | [place] [address] | [phone] | + + + + + POC Glucose (07/04/2019 5:03 PM PDT) + + + + + + | Component | Value | Ref Range | Performed | Pathologist | | | | | At | Signature | + + + + + + | Glucose, | 175 (H)Comment: Testing | 65 - 99 mg/dL | [facility] | | | POC | performed at [facility];[address] | | LABORATORY | | | | [address];[place] | | | | | | [address] | | | | + + + + + + + + | Specimen | + + | | + + + + + + + | Performing | Address | City/State/Zipcode | Phone Number | | Organization | | | | + + + + + | [facility] | [address] | [place] [address] | [phone] | + + + + + Mis Lab Test: (07/04/2019 2:35 PM PDT) + [...] + + | Reference | SENT TO [facility] | | [facility] | | | | | | LABORATORY | | + + + + + + | RESULT | SEPARATE REPORT TO | | [facility] | | | | FOLLOW, SEE MEDIA | | LABORATORY | | | | TABComment: Testing | | | | | | performed at [facility];[address] | | | | | | [address] [place], [place] | | | | | | [address] | | | | + + + + + + + + | Specimen | + + | | + + + + + + + | Performing | Address | City/State/Zipcode | Phone Number | | Organization | | | | + + + + + | [facility] | [address] | [place] [address] | [phone] | + + + + + [facility] lab fee (07/04/2019 2:35 PM PDT) + + + + + + | Component | Value | Ref Range | Performed | Pathologist | | | | | At | Signature | + + + + + + | TEST | [facility] | | [facility] | | | INFORMATION | | | LABORATORY | | + + + + + + | Reference | SENT TO [facility]: | | [facility] | | | | Testing performed at | | LABORATORY | | | | [facility];[address] | | | | | | [address];[place] [address] | | | | + + + + + + + + | Specimen | + + | | + + + + + + + | Performing | Address | City/State/Zipcode | Phone Number | | Organization | | | | + + + + + | [facility] | [address] | [place] [address] | [phone] | + + + + + POC Glucose (07/04/2019 11:07 AM PDT) + + + + + + | Component | Value | Ref Range | Performed | Pathologist | | | | | At | Signature | + + + + + + | Glucose, | 253 (H)Comment: Testing | 65 - 99 mg/dL | [facility] | | | POC | performed at [facility];[address] | | LABORATORY | | | | [address];[place] | | | | | | [address] | | | | + + + + + + + + | Specimen | + + | | + + + + + + + | Performing | Address | City/State/Zipcode | Phone Number | | Organization | | | | + + + + + | [facility] LABORATORY | [address] | [place] [address] | [phone] | + + + + + POC Glucose (07/04/2019 7:46 AM PDT) + + + + + + | Component | Value | Ref Range | Performed | Pathologist | | | | | At | Signature | + + + + + + | Glucose, | 248 (H)Comment: Testing | 65 - 99 mg/dL | [facility] | | | POC | performed at [facility];[address] | | LABORATORY | | | | [address];[place] | | | | | | [address] | | | | + + + + + + + + | Specimen | + + | | + + + + + + + | Performing | Address | City/State/Zipcode | Phone Number | | Organization | | | | + + + + + | [facility] | [address] | [place] [address] | [phone] | + + + + + CBC with Differential (07/04/2019 4:11 AM PDT) + + + + + + | Component | Value | Ref Range | Performed | Pathologist | | | | | At | Signature | + + + + + + | WBC | 10.24 | 3.80 - 11.00 | [facility] | | | | | K/uL | LABORATORY | | + + + + + + | Red Blood | 4.89 | 4.20 - 5.70 | [facility] | | | Cells | | M/uL | LABORATORY | | + + + + + + | Hemoglobin | 13.2 | 13.2 - 17.0 | [facility] | | | | | g/dL | LABORATORY | | + + + + + + | Hematocrit | 40.0 | 39.0 - 50.0 % | [facility] | | | | | | LABORATORY | | + + + + + + | MCV | 81.8 | 80.0 - 100.0 fl | [facility] [...] + + + + | RDW-SD | 40.3 | 37 - 53 fl | [facility] | | | | | | LABORATORY | | + + + + + + | Platelet | 250 | 150 - 400 K/uL | [facility] [...] + + + + | % | 57.30 | % | [facility] | | | Neutrophils | | | LABORATORY | | + + + + + + | IMMATURE | 0.40 | % | [facility] | | | GRANULOCYTE | | | LABORATORY | | + + + + + + | % | 26.30 | % | [facility] | | | Lymphocytes | | | LABORATORY | | + + + + + + | Monocyte % | 9.00 | % | [facility] | | | | | | LABORATORY | | + + + + + + | Eosinophils | 6.40 | % | [facility] | | | % | | | LABORATORY | | + + + + + + | Basophils % | 0.60 | % | [facility] | | | | | | LABORATORY | | + + + + + + | Neutrophils | 5.87 | 1.90 - 7.40 | [facility] | [...] + + + | Absolute | 0.92 (H) | 0.00 - 0.80 | [facility] | | | Monocytes | | K/uL | LABORATORY | | + + + + + + | Eosinophils | 0.66 (H) | 0.00 - 0.50 | [facility] | | | , Absolute | | K/uL | LABORATORY | | + + + + + + | Basophils, | 0.06Comment: Testing | 0.00 - 0.10 | [facility] | | | Absolute | performed at [facility], [address] | K/uL | LABORATORY | | | | [facility] [address], | | | | | | [place] [address] | | | | + + + + + + + + | Specimen | + + | Blood | + + + + + + + | Performing | Address | City/State/Zipcode | Phone Number | | Organization | | | | + + + + + | [facility] | [address] [facility] | [place] [address] | [phone] | + + + + + Basic Metabolic Panel (07/04/2019 4:11 AM PDT) + + + + + [...] + + + + | Glucose | 254 (H) | 65 - 99 mg/dL | [facility] | | | | | | LABORATORY | | + + + + + + | BUN | 11 | 8 - 25 mg/dL | [facility] | | | | | | LABORATORY | | + + + + + + | Creatinine | 0.70 | 0.70 - 1.30 | [facility] | | | | | mg/dL | LABORATORY | | + + + + + + | BUN/Creatin | 16 | | [facility] | | | ine Ratio | | | LABORATORY | | + + + + + + | Calcium | 8.3 (L) | 8.5 - 10.5 | [facility] | [...] | | | | | performed at [facility], [address] | | | | | | [facility], | | | | | | [place] [address] | | | | + + + + + + + + | Specimen | + + | Blood | + + + + + + + | Performing | Address | City/State/Zipcode | Phone Number | | Organization | | | | + + + + + | [facility] | [address] | [place] [address] | [phone] | + + + + + CT Angiogram Pulmonary w Contrast (07/03/2019 10:44 PM PDT) + + | Specimen | + + | | + + + + + | Impressions | Performed At | + + + | No acute cardiopulmonary disease. Lungs clear. No pulmonary | [facility] | | embolism. Signed by: Irina Atkinson, Rhys Pina Date/Time: | | | 07/03/2019 10:55 PM [...] | + +---------+ + + POC Glucose (07/03/2019 9:03 PM PDT) + + + + + + | Component | Value | Ref Range | Performed | Pathologist | | | | | At | Signature | + + + + + + | Glucose, | 221 (H)Comment: Testing | 65 - 99 mg/dL | [facility] | | | POC | performed at [facility];[address] | | LABORATORY | | | | [address];[place], [place] | | | | | | [address] | | | | + + + + + + + + | Specimen | + + | | + + + + + + + | Performing | Address | City/State/Zipcode | Phone Number | | Organization | | | | + + + + + | [facility] | [address] | [place] [address] | [phone] | + + + + + POC Glucose (07/03/2019 6:12 PM PDT) + + + + + [...] | LABORATORY | | | | [address];[place], [place] | | | | | | [address] | | | | + + + + + + + + | Specimen | + + | | + + + + + + + | Performing | Address | City/State/Zipcode | Phone Number | | Organization | | | | + + + + + | [facility] | [address] | [place] [address] | [phone] | + + + + + MRSA NAAT (07/03/2019 2:29 PM [...] [place] | | | | | | [address] | | | | + + + + + + + + | Specimen | + + | Tissue - Both | | anterior nares (body | | structure) | + + + + + + + | Performing | Address | City/State/Zipcode | Phone Number | | Organization | | | | + + + + + | [facility] | [address] | [place] [address] | [phone] | + + + + + Culture, Urine (07/03/2019 1:13 PM PDT) + + + + + + | Component | Value | Ref Range | Performed | Pathologist | | | | | At | Signature | + + + + + + | RESULT | 10,000 TO 50,000 | | [facility] | | | | CFU/MLMIXED GRAM | | LABORATORY | | | | POSITIVE AND GRAM | | | | | | NEGATIVE DIDI | | | | + + + + + + | RESULT | NO FURTHER WORKUP | | [facility] | | | | | | [facility]AT[facility] | | + + + + + + | RESULT | Testing performed at | | [facility] | | | | [facility], [address] | | LABORATORY | | | | [place] | | | | | | [id number]: Testing | | | | | | performed at [facility], [address] | | | | | | [address] [place], | | | | | | [place] [address] | | | | + + + [...] | + + + + + | [facility] | [address] | [place] [address] | [phone] | + + + + + Urinalysis With Microscopic (07/03/2019 1:13 PM PDT) + + + + + + | Component | Value | Ref Range | Performed | Pathologist | | | | | At | Signature | + + + + + + | Color, UA | STRAW | | [facility] | | | | | | LABORATORY | | + + + + + + | Clarity, | CLEAR | | [facility] | | | Urine | | | LABORATORY | | + + + + + + | Specific | 1.013 | 1.002 - 1.030 | [facility] | | | [place], | | | LABORATORY | | | [...] | 7.0 | 5.0 - 8.0 | [facility] | [...] | Bacteria, | 1+ (A)Comment: Testing | NONE | [facility] | | | Urine | performed at [facility];[address] | | LABORATORY | | | | [address];[place] | | | | | | [address] | | | | + + + + + + + + | Specimen | + + | Urine | + + + + + + + | Performing | Address | City/State/Zipcode | Phone Number | | Organization | | | | + + + + + | [facility] | [address] | [place] [address] | [phone] | + + + + + Lactic Acid (07/03/2019 12:31 PM PDT) + + + + + + | Component | Value | Ref Range | Performed | Pathologist | | | | | At | Signature | + + + + + + | Lactate, | 3.1 (H)Comment: RESULT | 0.4 - 2.0 | [facility] | | | Serum | READ BACK BY: ZAYNAB | mmol/L | LABORATORY | | | | SEPSIS RN @1258 BY | | | | | | BHREAD BACK RESULTS | | | | | | VERIFIEDTesting | | | | | | performed at [facility];[address] | [address] | [address];[place], [place] | | | | | | [address] | | | | + + + + + + + + | Specimen | + + | Blood | + + + + + + + | Performing | Address | City/State/Zipcode | Phone Number | | Organization | | | | + + + + + | [facility] | [address] | [place] [address] | [phone] | + + + + + Culture, Blood (07/03/2019 11:32 AM PDT) + + + + + + | Component | Value | Ref Range | Performed | Pathologist | | | | | At | Signature | + + + + + + | Special | LT AC | | [facility] | | | Requests | | | LABORATORY | | + + + + + + | Special | Testing performed at | | [facility] | | | Requests | [facility];[address] | | LABORATORY | | | | [address];[place] [address] | | | | + + + + + + | RESULT | NO GROWTH 6 DAYS | | [facility] | | | | | | LABORATORY | | + + + + + + | RESULT | Testing performed at | | [facility] | | | | [facility], [address] | | LABORATORY | | | | [place] | | | | | | [id number]: Testing | | | | | | performed at [facility], [address] | | | | | | [address] [place] | | | | | | [address] | | | | + + + [...] [facility] | [address] | [place] [address] | [phone] | + + + + + Respiratory pathogen panel, NAAT (07/03/2019 11:05 AM PDT) + + + + + + | Component | Value | Ref Range | Performed | Pathologist | | | | | At | Signature | + + + + + + | Adenovirus | Not Detected | NOTDET | LUIS ALBERTO | | | DNA | | | [...] | | | | | performed at [facility], [address] | | | | | | [address], | | | | | | [place] [address] | | | | + + + + + + + + | Specimen | + + | Body Fluid - Entire | | nasopharynx (body | | structure) | + + + + + + + | Performing | Address | City/State/Zipcode | Phone Number | | Organization | | | | + + + + + | [facility] | [address] | [place] [address] | [phone] | + + + + + Coronavirus (COVID-19) NAAYulisa (07/03/2019 11:05 AM PDT) + + + + + + | Component | Value | Ref Range | Performed | Pathologist | | | | | At | Signature | + + + + + + | SARS-CoV-2, | NEGATIVEComment: Testing | NEG | [facility] | | | NAAT | performed at [facility];[address] | | LABORATORY | | | (COVID-19) | [address];[place] | | | | | | [address] | | | | + + + + + + + + | Specimen | + + | Tissue - Entire | | nasopharynx (body | | structure) | + + + + + + + | Performing | Address | City/State/Zipcode | Phone Number | | Organization | | | | + + + + + | [facility] | [address] | [place] [address] | [phone] | + + + + + Culture, Blood (07/03/2019 10:50 AM PDT) + + + + + + | Component | Value | Ref Range | Performed | Pathologist | | | | | At | Signature | + + + + + + | Special | R AC | | [facility] | | | Requests | | | LABORATORY | | + + + + + + | Special | Testing performed at | | [facility] | | | Requests | [facility];[address] | | LABORATORY | | | | [address];[place] [address] | | | | + + + + + + | Gram Stain | GRAM POSITIVE COCCI IN | | [facility] | | | Result | CLUSTERSSEEN IN | | LABORATORY | | | | ANAEROBIC BOTTLE (A) | | | | + + + + + + | Gram Stain | SMEAR RESULTS CALLED TO | | [facility] | | | Result | AND READ BACK BY:FRAN De León | | LABORATORY | | | | AT [facility] 9RP BY SACHI AT 0605 | | | | | | ON 07/04/2019. | | | | + + + + + + | Gram Stain | GRAM POSITIVE COCCI IN | | [facility] | | | Result | CLUSTERSSEEN IN AEROBIC | | LABORATORY | | | | BOTTLE (A) | | | | + + + + + + | RESULT | MIXEDSTAPHYLOCOCCUS | | [facility] | | | | SPECIES, COAGULASE | | LABORATORY | | | | NEGATIVE (A) | | | | + + + + + + | RESULT | GROWTH IN TWO OF TWO | | [facility] | | | | BOTTLES (A) | | LABORATORY | | + + + + + + | RESULT | TIME TO DETECTION: | | [facility] | | | | 0.63 DAYS | | LABORATORY | | | | | | | | + + + + + + | RESULT | POSSIBLE CONTAMINANT, | | [facility] | | | | CLINICAL CORRELATION | | LABORATORY | | | | REQUIRED. | | | | + + + + + + | RESULT | Testing performed at | | [facility] | | | | [facility], [address] [facility] [facility] [address] | | LABORATORY | | | | [place] | | | | | | [id number]: Testing | | | | | | performed at [facility], [address] | | | | | | [place] | | | | | | [address] | | | | + + + + + + + + | Specimen | + + | Blood - Swab of line | | insertion site | | (specimen) | + + + + + + + | Performing | Address | City/State/Zipcode | Phone Number | | Organization | | | | + + + + + | [facility] | [address] | [place] [address] | [phone] | + + + + + Lactic Acid (07/03/2019 10:48 AM PDT) + + + + + + | Component | Value | Ref Range | Performed | Pathologist | | | | | At | Signature | + + + + + + | Lactate, | 2.6 (H)Comment: CALLED | 0.4 - 2.0 | [facility] | | | Serum | RESULTSSEPSIS RN/DANA | mmol/L | LABORATORY | | | | M AT 1132 BY SALTesting | | | | | | performed at [facility];[address] | | | | | | [address];[place], [place] | | | | | | [address] | | | | + + + + + + + + | Specimen | + + | Blood | + + + + + + + | Performing | Address | City/State/Zipcode | Phone Number | | Organization | | | | + + + + + | [facility] | [address] | [place] [address] | [phone] | + + + + + XR Chest AP Portable (07/03/2019 10:41 AM PDT) + + | Specimen | + + | | + + + + + | Impressions | Performed At | + + + | No active disease. Signed by: Irina Guzman Shawn Sign | [facility] | | Date/Time: 07/03/2019 11:07 AM | | + + + + + + | Narrative | Performed At | + + + | CHEST PORTABLE ONE VIEW CLINICAL INFORMATION: Shortness of | [facility] | | breath, Fever. COMPARISON: XR CHEST AP PORTABLE (05/15/2019); XR | | | CHEST PA AND LATERAL (04/13/2019); XR CHEST PA AND LATERAL (04/04/2019); | | | XR CHEST 2 VIEW FRONTAL AND LATERAL (02/06/2018); FINDINGS: Heart | | | size is normal. Lungs are clear. | | + + + + + | Procedure Note | + + | Richard, Rad Results In - 07/03/2019 11:10 AM PDT | | CHEST PORTABLE ONE VIEW | | | | CLINICAL INFORMATION: | | Shortness of breath, Fever. | | | | COMPARISON: | | XR CHEST AP PORTABLE (05/15/2019); XR CHEST PA AND LATERAL (04/13/2019); XR | | CHEST PA AND LATERAL (04/04/2019); XR CHEST 2 VIEW FRONTAL AND LATERAL | | (02/06/2018); | | | | FINDINGS: | | Heart size is normal. Lungs are clear. | | | | IMPRESSION: | | No active disease. | | | | | | | | Signed by: Irina Guzman Shawn | | Sign Date/Time: 07/03/2019 11:07 AM | + + + +---------+ + + | Performing | Address | City/State/Zipcode | Phone Number | | Organization | | | | + +---------+ + + | [facility] | | | | + +---------+ + + ECG 12 lead (07/03/2019 10:12 AM PDT) + + + + + + | Component | Value | Ref Range | Performed | Pathologist | | | | | At | Signature | + + + + + + | VENTRICULAR | 157 | BPM | [facility] | | | RATE EKG | | | | | + + + + + + | ATRIAL RATE | 170 | BPM | [facility] | | + + + + + + | QRS | 78 | ms | [facility] | | | DURATION | | | | | + + + + + + | Q-T | 262 | ms | [facility] | | | INTERVAL | | | | | + + + + + + | Q-T | 423 | ms | [facility] | | | INTERVAL | | | | | | (CORRECTED) | | | | | + + + + + + | QRS AXIS | 51 | degrees | [facility] | | + + + + + + | T AXIS | -102 | degrees | [facility] | | + + + + + + | INTERPRETAT | Atrial fibrillation with | | [facility] | | | ION TEXT | rapid ventricular | | | | | | responseModerate voltage | | | | | | criteria for LVH, may | | | | | | be normal variantMarked | | | | | | ST abnormality, possible | | | | | | inferior subendocardial | | | | | | injuryAbnormal ECGWhen | | | | | | compared with ECG of | | | | | | 15-MAY-2019 21:46,Atrial | | | | | | fibrillation has | | | | | | replaced Sinus | | | | | | rhythmVent. rate has | | | | | | increased BY 80 BPMST | | | | | | now depressed in | | | | | | Inferior leadsST now | | | | | | depressed [...] | | | | | ONLY, -COMPUTER ([id number]), | | | | | | international editorial producer Mel Bruno | | | | | | ([id number]) on 07/04/2019 | | | | | | 5:14:58 AM | | | | + + [...] | | + +---------+ + + D-Dimer (07/03/2019 10:08 AM PDT) + + + + + + | Component | Value | Ref Range | Performed | Pathologist | | | | | At | Signature | + + + + + + | D-DIMER | 1.39 (H)Comment: D Dimer | 0.19 - 0.50 | [facility] | | | | results less than [...] | performed at [facility] | | | | | | [facility];[place], [place] | | | | | | [address] | | | | + + + + + + + + | Specimen | + + | Blood | + + + + + + + | Performing | Address | City/State/Zipcode | Phone Number | | Organization | | | | + + + + + | [facility] | [address] | [place] [address] | [phone] | + + + + + Magnesium (07/03/2019 10:08 AM PDT) + + + + + + | Component | Value | Ref Range | Performed | Pathologist | | | | | At | Signature | + + + + + + | Magnesium | 1.7Comment: Testing | 1.7 - 2.4 mg/dL | [facility] | | | | performed at [facility];[address] | | LABORATORY | | | | [address];[place] | | | | | | [address] | | | | + + + + + + + + | Specimen | + + | Blood | + + + + + + + | Performing | Address | City/State/Zipcode | Phone Number | | Organization | | | | + + + + + | [facility] | [address] | [place] [address] | [phone] | + + + + + Procalcitonin (07/03/2019 10:08 AM PDT) + + + [...] | | at [facility];[address] [place] [address] | | | | | | Blvd;[place] [address] | | | | + + + + + + + + | Specimen | + + | Blood | + + + + + + + | Performing | Address | City/State/Zipcode | Phone Number | | Organization | | | | + + + + + | [facility] | [address] [facility] | [place] [address] | [phone] | + + + + + B Type Natriuretic Peptide (07/03/2019 10:08 AM PDT) + + + + + + | Component | Value | Ref Range | Performed | Pathologist | | | | | At | Signature | + + + + + + | BNP | 104.37 (H)Comment: | 0 - 100 pg/mL | [facility] | | | | Testing performed at | | LABORATORY | | | | [facility];[address] | | | | | | [address];[place] [address] | | | | + + + + + + + + | Specimen | + + | Blood | + + + + + + + | Performing | Address | City/State/Zipcode | Phone Number | | Organization | | | | + + + + + | [facility] | [address] | [place] [address] | [phone] | + + + + + Procalcitonin (07/03/2019 10:08 AM PDT) + + + + + + | Component | Value | Ref Range | Performed | Pathologist | | | | | At | Signature | + + + + + + | PROCALCITON | <0.05Comment: | <0.5 ng/mL | [facility] | | | IN | INTERPRETIVE | [...] | | at [facility];[address] [place] [address] | | | | | | [facility];[place] [address] | | | | + + + + + + + + | Specimen | + + | Blood | + + + + + + + | Performing | Address | City/State/Zipcode | Phone Number | | Organization | | | | + + + + + | [facility] | [address] | [place] [address] | [phone] | + + + + + Protime INR (07/03/2019 10:08 AM PDT) + + + + + + | Component | Value | Ref Range | Performed | Pathologist | | | | | At | Signature | + + + + + + | INR | 0.9Comment: REFERENCE | | [facility] | | | | RANGE:0.9 [...] [place] | | | | | | [address] | | | | + + + + + + + + | Specimen | + + | Blood | + + + + + + + | Performing | Address | City/State/Zipcode | Phone Number | | Organization | | | | + + + + + | [facility] | [address] | [place] [address] | [phone] | + + + + + Troponin I (07/03/2019 10:08 AM PDT) + + + + + + | Component | Value | Ref Range | Performed | Pathologist | | | | | At | Signature | + + + + + + | Troponin I | 0.038Comment: 0.04 | 0.00 - 0.04 | [facility] | | | | ng/mL [...] | | | [facility];[address] [facility] | | | | | | [facility];[place] [address] | | | | + + + + + + + + | Specimen | + + | Blood | + + + + + + + | Performing | Address | City/State/Zipcode | Phone Number | | Organization | | | | + + + + + | [facility] | [address] | [place] [address] | [phone] | + + + + + Comprehensive Metabolic Panel (07/03/2019 10:08 AM PDT) + + + [...] + + + + | K | 3.3 (L) | 3.5 - 4.9 | [facility] [...] + + + + | Glucose | 336 (H) | 65 - 99 mg/dL | [...] + + + | ALK PHOS | 159 (H) | 35 - 115 U/L | [facility] | | | | | | LABORATORY | | + + + + + + | AST | 29 | 10 - 45 U/L | [facility] | | | | | | LABORATORY | | + + + + + + | ALT | 19 | 10 - 65 U/L | [facility] [...] | | | | | | MDRD IDMN traceable | | | | | | equation.Testing | | | | | | performed at [facility] | | | | | | [facility];[place], [place] | | | | | | [address] | | | | + + + + + + + + | Specimen | + + | Blood | + + + + + + + | Performing | Address | City/State/Zipcode | Phone Number | | Organization | | | | + + + + + | [facility] | [address] | [place] [address] | [phone] | + + + + + CBC with Differential (07/03/2019 10:08 AM PDT) + + + + + + | Component | Value | Ref Range | Performed | Pathologist | | | | | At | Signature | + + + + + + | WBC | 11.16 (H) | 3.80 - 11.00 | [facility] | | | | | K/uL | LABORATORY | | + + + + + + | Red Blood | 5.78 (H) | 4.20 - 5.70 | [facility] | | | Cells | | M/uL | LABORATORY | | + + + + + + | Hemoglobin | 15.7 | 13.2 - 17.0 | [facility] | | | | | g/dL | LABORATORY | | + + + + + + | Hematocrit | 47.4 | 39.0 - 50.0 % | [facility] | | | | | | LABORATORY | | + + + + + + | MCV | 82.0 | 80.0 - 100.0 fl | [facility] | | | | | | LABORATORY | | + + + + + + | MCH | 27.2 | 27.0 - 34.0 pg | [facility] | | | | | | LABORATORY | | + + + + + + | MCHC | 33.1 | 32.0 - 35.5 | [facility] | | | | | g/dL | LABORATORY | | + + + + + + | RDW-SD | 39.7 | 37 - 53 fl | [facility] | | | | | | LABORATORY | | + + + + + + | Platelet | 294 | 150 - 400 K/uL | [facility] | | | Count | | | LABORATORY | | + + + + + + | MPV | 9.9Comment: NO NORMAL | fl | [facility] | [...] + + + + | % | 48.80 | % | [facility] | | | Neutrophils | | | LABORATORY | | + + + + + + | IMMATURE | 0.50 | % | [facility] | | | GRANULOCYTE | | | LABORATORY | | + + + + + + | % | 36.40 | % | [facility] | | | Lymphocytes | | | LABORATORY | | + + + + + + | Monocyte % | 8.30 | % | [facility] | | | | | | LABORATORY | | + + + + + + | Eosinophils | 5.20 | % | [facility] | | | % | | | LABORATORY | | + + + + + + | Basophils % | 0.80 | % | [facility] | | | | | | LABORATORY | | + + + + + + | Neutrophils | 5.44 | 1.90 - 7.40 | [facility] | | | , Absolute | | K/uL | LABORATORY | | + + + + + + | IMMATURE | 0.06Comment: NOTE NEW | 0.00 - 0.07 | [facility] | | | GRANS AB | REFERENCE RANGE | K/uL | LABORATORY | | + + + + + + | Absolute | 4.06 (H) | 1.00 - 3.90 | [facility] | | | Lymphocytes | | K/uL | LABORATORY | | + + + + + + | Absolute | 0.93 (H) | 0.00 - 0.80 | [facility] | | | Monocytes | | K/uL | LABORATORY | | + + + + + + | Eosinophils | 0.58 (H) | 0.00 - 0.50 | [facility] | | | , Absolute | | K/uL | LABORATORY | | + + + + + + | Basophils, | 0.09Comment: Testing | 0.00 - 0.10 | [facility] | | | Absolute | performed at [facility] [place];[address] | LABORATORY | | | | [address], [place] | | | | | | [id number] | | | | + + + + + + + + | Specimen | + + | Blood | + + + + + + + | Performing | Address | City/State/Zipcode | Phone Number | | Organization | | | | + + + + + | [facility] | [address] | [place] [address] | [phone] | + + + + + documented in this encounter Visit Diagnoses + + | Diagnosis | + + | Sepsis, due to unspecified organism, unspecified whether acute organ dysfunction | | present (HCC) | + + | Febrile illness, acute Fever, unspecified | + + | Atrial fibrillation with RVR (HCC) Atrial fibrillation | + + | Positive blood culture Bacteremia | + + | Chronic obstructive pulmonary disease, unspecified COPD type (HCC) | + + | Developmental delay Unspecified delay in development | + + | Type 2 diabetes mellitus with hyperglycemia, unspecified whether long term care pharmacist insulin use | | (HCC) | + + | Diabetes mellitus, type 2 Type II or unspecified type diabetes mellitus without | | mention of complication, not stated as uncontrolled | + + | HTN (hypertension) Unspecified essential hypertension | + + | Chronic anticoagulation Encounter for long-term (current) use of 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 | + + | Obesity, Class I, BMI 30-34.9 | + + | Constipation Unspecified constipation | + + | Bacteremia | + + documented in this encounter Administered Medications + +--------+ +--------+------+------+ | Medication Order | MAR | Action | Dose | Rate | Site | | | Action | Date | | | | + +--------+ +--------+------+------+ | acetaminophen (TYLENOL) tablet | Given | 07/05/19 | 650 mg | | | | 650 mg 650 mg, Oral, EVERY 4 | | 20 1:42 | | | | | HOURS PRN, Pain, or fever >= 38.6 | | AM PDT | | | | | C (101.5 F), Starting Wed | | | | | | | 07/03/19 at 1642 | | | | | | + +--------+ +--------+------+------+ +-------+ +--------+---+---+ | Given | 07/04/19 | 650 mg | | | | | 20 8:05 | | | | | | PM PDT | | | | +-------+ +--------+---+---+ | Given | 07/03/19 | 650 mg | | | | | 20 8:59 | | | | | | PM PDT | | | | +-------+ +--------+---+---+ +---+---+ | | | +---+---+ + +-------+ +--------+---+---+ | ALPRAZolam (XANAX) tablet 0.5 | Given | 07/05/19 | 0.5 mg | | | | mg 0.5 mg, Oral, EVERY 6 HOURS | | 20 7:06 | | | | | PRN, Anxiety, Starting Fri | | PM PDT | | | | | 07/05/19 at 1901 | | | | | | + +-------+ +--------+---+---+ +---+---+ | | | +---+---+ + +-------+ +------+---+---+ | apixaban (ELIQUIS) tablet 5 mg | Given | 07/05/19 | 5 mg | | | | 5 mg, Oral, 2 TIMES DAILY, First | | 20 8:07 | | | | | dose (after last modification) | | AM PDT | | | | | on Mon07/03/19 at 2030 | | | | | | + +-------+ +------+---+---+ +-------+ +------+---+---+ | Given | 07/04/19 | 5 mg | | | | | 20 8:05 | | | | | | PM PDT | | | | +-------+ +------+---+---+ | Given | 07/04/19 | 5 mg | | | | | 20 8:23 | | | | | | AM PDT | | | | +-------+ +------+---+---+ +---+---+ | | | +---+---+ + +-------+ +------+---+---+ | ARIPiprazole (ABILIFY) tablet 5 | Given | 07/05/19 | 5 mg | | | | mg 5 mg, Oral, DAILY, First | | 20 8:07 | | | | | dose on Mon07/03/19 at 1830 | | AM PDT | | | | + +-------+ +------+---+---+ +-------+ +------+---+---+ | Given | 07/04/19 | 5 mg | | | | | 20 8:22 | | | | | | AM PDT | | | | +-------+ +------+---+---+ | Given | 07/03/19 | 5 mg | | | | | 20 6:14 | | | | | | PM PDT | | | | +-------+ +------+---+---+ +---+---+ | | | +---+---+ + +-------+ +-------+---+---+ | atorvaSTATin (LIPITOR) tablet | Given | 07/04/19 | 40 mg | | | | 40 mg 40 mg, Oral, NIGHTLY, | | 20 8:05 | | | | | First dose on Mon07/03/19 at 2100 | | PM PDT | | | | + +-------+ +-------+---+---+ +-------+ +-------+---+---+ | Given | 07/03/19 | 40 mg | | | | | 20 8:59 | | | | | | PM PDT | | | | +-------+ +-------+---+---+ +---+---+ | | | +---+---+ + +-------+ +---------+---+---+ | budesonide-formoterol | Given | 07/05/19 | 2 puffs | | | | (SYMBICORT) 160-4.5 mcg/puff | | 20 8:08 | | | | | inhaler 2 puff 2 puff, | | AM PDT | | | | | Inhalation, 2 TIMES DAILY, First | | | | | | | dose on Mon07/03/19 at 2100, | | | | | | | Shake well. Use with spacer. | | | | | | | Rinse mouth after use., | | | | | | + +-------+ +---------+---+---+ +-------+ +---------+---+---+ | Given | 07/04/19 | 2 puffs | | | | | 20 8:07 | | | | | | PM PDT | | | | +-------+ +---------+---+---+ | Given | 07/04/19 | 2 puffs | | | | | 20 8:25 | | | | | | AM PDT | | | | +-------+ +---------+---+---+ +---+---+ | | | +---+---+ + +-------+ +---------+---+---+ | carvedilol (COREG) tablet 12.5 | Given | 07/05/19 | 12.5 mg | | | | mg 12.5 mg, Oral, 2 TIMES DAILY | | 20 5:25 | | | | | WITH BREAKFAST & DINNER, First | | PM PDT | | | | | dose (after last modification) on | | | | | | | 07/03/19 at 1830 | | | | | | + +-------+ +---------+---+---+ +-------+ +---------+---+---+ | Given | 07/05/19 | 12.5 mg | | | | | 20 8:07 | | | | | | AM PDT | | | | +-------+ +---------+---+---+ | Given | 07/04/19 | 12.5 mg | | | | | 20 5:27 | | | | | | PM PDT | | | | +-------+ +---------+---+---+ +---+---+ | | | +---+---+ + +---------+ +-----+-------+---+ | cefTRIAXone (ROCEPHIN) IVPB 1 g | New Bag | 07/05/19 | 1 g | 100 | | | 1 g, Intravenous, Administer | | 20 12:48 | | mL/hr | | | over 30 Minutes, EVERY 24 HOURS | | PM PDT | | | | | INTERVAL, First dose (after last | | | | | | | reorder) on [facility] 07/04/19 at 1230, | | | | | | | Keep in refrigerator., | | | | | | | Indications: SEPSIS OF UNKNOWN | | | | | | | ETIOLOGY | | | | | | + +---------+ +-----+-------+---+ +---------+ +-----+-------+---+ | New Bag | 07/04/19 | 1 g | 100 | | | | 20 12:26 | | mL/hr | | | | PM PDT | | | | +---------+ +-----+-------+---+ +---+---+ | | | +---+---+ + +---------+ +-----+-------+---+ | cefTRIAXone (ROCEPHIN) IVPB 2 g | New Bag | 07/03/19 | 2 g | 100 | | | 2 g, Intravenous, Administer | | 20 12:24 | | mL/hr | | | over 30 Minutes, ONCE, Wed | | PM PDT | | | | | 07/03/19 at 1155, For 1 dose, Keep | | | | | | | in refrigerator., Indications: | | | | | | | SEPSIS OF UNKNOWN ETIOLOGY | | | | | | + +---------+ +-----+-------+---+ + +---+ | | | + +---+ | dextrose 10% (D10W) infusion | | | at 50 mL/hr, Intravenous, | | | CONTINUOUS PRN, hypoglycemia, | | | Starting 07/03/19 at 1642, | | | Start infusion if unable [...] Blood Sugar, Starting Wed | | | 07/03/19 at 1642, For blood | | | glucose 50-69 mg/dl - give 12.5 g | | | For blood glucose less than 50 | | | mg/dl - give 25 g, | | + +---+ | | | + +---+ + +-------+ +-------+---+---+ | dilTIAZem (CARDIZEM) injection | Given | 07/03/19 | 20 mg | | | | 20 mg 20 mg, Intravenous, ONCE, | | 20 10:29 | | | | | 07/03/19 at 1025, For 1 dose, | | AM PDT | | | | | Keep in refrigerator., | | | | | | + +-------+ +-------+---+---+ +---+---+ | | | +---+---+ + + + +---------+---------+---+ | dilTIAZem in dextrose | Rate/Dos | 07/04/19 | 5 mg/hr | 5 mL/hr | | | (CARDIZEM) 1 mg/mL infusion 0-15 | e Change | 20 11:01 | | | | | mg/hr (0-15 mL/hr), at 0-15 | | AM PDT | | | | | mL/hr, Intravenous, TITRATED, | | | | | | | Starting 07/03/19 at 1025, | | | | | | | Titration Instruction: See below, | | | | | | | Goal: HR less than 100, Initial | | | | | | | dose: 5 mg/hr, Increase rate by: | | | | | | | 5 mg/hr every 15 minutes., | | | | | | | Decrease rate by: 5 mg/hr every | | | | | | | 15 minutes., *: Titrate drug per | | | | | | | order as tolerated. Titration may | | | | | | | vary based on the patient | | | | | | | | | | | | | | s critical condition. | | | | | | + + + +---------+---------+---+ + + + + +---+ | New Bag | 07/04/19 | 10 mg/hr | 10 mL/hr | | | | 20 8:35 | | | | | | AM PDT | | | | + + + + +---+ | Rate/Dose Change | 07/04/19 | 10 mg/hr | 10 mL/hr | | | | 20 8:26 | | | | | | AM PDT | | | | + + + + +---+ +---+---+ | | | +---+---+ + +-------+ +--------+---+---+ | docusate sodium (COLACE) | Given | 07/05/19 | 100 mg | | | | capsule 100 mg 100 mg, Oral, 2 | | 20 8:07 | | | | | TIMES DAILY, First dose on Mon | | AM PDT | | | | | 07/03/19 at 2100, 1st line agent | | | | | | | for constipation relief., please | | | | | | | hold for loose stools., | | | | | | + +-------+ +--------+---+---+ +-------+ +--------+---+---+ | Given | 07/04/19 | 100 mg | | | | | 20 8:23 | | | | | | AM PDT | | | | +-------+ +--------+---+---+ | Given | 07/03/19 | 100 mg | | | | | 20 9:00 | | | | | | PM PDT | | | | +-------+ +--------+---+---+ +---+---+ | | | +---+---+ + +-------+ +---------+---+---+ | enalaprilat (VASOTEC) injection | Given | 07/05/19 | 1.25 mg | | | | 1.25 mg 1.25 mg, Intravenous, | | 20 8:08 | | | | | ONCE, 07/05/19 at 0615, For 1 | | AM PDT | | | | | dose | | | | | | + +-------+ +---------+---+---+ +---+---+ | | | +---+---+ + +-------+ +------+---+---+ | finasteride (PROSCAR) tablet 5 | Given | 07/05/19 | 5 mg | | | | mg 5 mg, Oral, DAILY, First dose | | 20 8:07 | | | | | on Mon07/03/19 at 1830, | | AM PDT | | | | | Reproductive Risk: Use | | | | | | | appropriate handling | | | | | | | precautions., | | | | | | + +-------+ +------+---+---+ +-------+ +------+---+---+ | Given | 07/04/19 | 5 mg | | | | | 20 8:22 | | | | | | AM PDT | | | | +-------+ +------+---+---+ | Given | 07/03/19 | 5 mg | | | | | 20 6:15 | | | | | | PM PDT | | | | +-------+ +------+---+---+ +---+---+ | | | +---+---+ + +-------+ +-------+---+---+ | hydrALAZINE (APRESOLINE) | Given | 07/05/19 | 10 mg | | | | injection 10 mg 10 mg, | | 20 5:16 | | | | | Intravenous, EVERY 4 HOURS PRN, | | AM PDT | | | | | SBP > 180 mmHg verified with | | | | | | | appropriate cuff for patient's | | | | | | | arm size, Starting 07/03/19 at | | | | | | | 1812 | | | | | | + +-------+ +-------+---+---+ +-------+ +-------+---+---+ | Given | 07/05/19 | 10 mg | | | | | 20 1:46 | | | | | | AM PDT | | | | +-------+ +-------+---+---+ | Given | 07/03/19 | 10 mg | | | | | 20 7:17 | | | | | | PM PDT | | | | +-------+ +-------+---+---+ +---+---+ | | | +---+---+ + +-------+ +-------+---+---+ | hydrALAZINE (APRESOLINE) tablet | Given | 07/05/19 | 25 mg | | | | 25 mg 25 mg, Oral, 3 TIMES | | 20 3:55 | | | | | DAILY, First dose (after last | | PM PDT | | | | | modification) on Mon07/03/19 at | | | | | | | 1830 | | | | | | + +-------+ +-------+---+---+ +-------+ +-------+---+---+ | Given | 07/05/19 | 25 mg | | | | | 20 8:07 | | | | | | AM PDT | | | | +-------+ +-------+---+---+ | Given | 07/04/19 | 25 mg | | | | | 20 8:05 | | | | | | PM PDT | | | | +-------+ +-------+---+---+ +---+---+ | | | +---+---+ + +-------+ + +---+ + | insulin detemir (LEVEMIR | Given | 07/04/19 | 45 Units | | Abdomen- | | FLEXTOUCH) injection (pen) 45 | | 20 8:05 | | | LLQ | | Units 45 Units, Subcutaneous, | | PM PDT | | | | | NIGHTLY, First dose on Mon | | | | | | | 07/03/19 at 2100, For subcutaneous | | | | | | | use only. Basal (long acting) | | | | | | | insulin., If NPO: Decrease dose, | | | | | | | by: 50% | | | | | | + +-------+ + +---+ + +-------+ + +---+ + | Given | 07/03/19 | 45 Units | | Abdomen- | | | 20 9:01 | | | LLQ | | | PM PDT | | | | +-------+ + +---+ + +---+---+ | | | +---+---+ + +-------+ +---------+---+ + | insulin lispro (humaLOG) | Given | 07/05/19 | 2 Units | | Arm-Left | | injection (vial) 0-12 Units 0-12 | | 20 5:28 | | | Upper | | Units, Subcutaneous, 4 TIMES | | PM PDT | | | | | DAILY WITH MEALS & NIGHTLY, First | | | | | | | dose on Mon07/03/19 at 1830, | | | | | | | [...] | | | | | | | [id number] Use NIGHT DOSE for | | | | | | | doses scheduled: HS, | | | | | | | Nighttime [id number] If the BG is | | | [...] + +-------+ +---------+---+ + | Given | 07/05/19 | 2 Units | | Arm-Left | | | 20 10:58 | | | Upper | | | AM PDT | | | | +-------+ +---------+---+ + | Given | 07/05/19 | 8 Units | | Arm-Left | | | 20 8:13 | | | Upper | | | AM PDT | | | | +-------+ +---------+---+ + +---+---+ | | | +---+---+ + +-------+ + +---+ + | insulin lispro (humaLOG) | Given | 07/05/19 | 10 Units | | Arm-Left | | injection (vial) 10 Units 10 | | 20 5:27 | | | Upper | | Units, Subcutaneous, 3 TIMES | | PM PDT | | | | | DAILY WITH MEALS, First dose on | | | | | | | 07/03/19 at 1830, NUTRITIONAL | | | | | | | insulin order. ADJUST DOSE | | | | | | | FOLLOWS: Eating Normally: | | | | | | | FULL prescribed dose NPO (or less | | | | | | | than 25% of meal): Do NOT | | | | | | | give this dose of insulin Less | | | | | | | than 50% of meal: 50% of this | | | | | | | dose. If patient eating | | | | | | | predictably, give dose | | | | | | | immediately before meal. If | | | | | | | intake uncertain or inconsistent, | | | | | | | give dose within 15 minutes | | | | | | | AFTER finishing meal. If the BG | | | | | | | is not checked before the patient | | | | | | | starts eating, give dose up to | | | | | | | 15 minutes after meal is | | | | | | | finished. Only for use with U-100 | | | | | | | insulin syringe., | | | | | | + +-------+ + +---+ + +-------+ + +---+ + | Given | 07/05/19 | 10 Units | | Arm-Left | | | 20 10:59 | | | Upper | | | AM PDT | | | | +-------+ + +---+ + | Given | 07/05/19 | 10 Units | | Arm-Left | | | 20 8:13 | | | Upper | | | AM PDT | | | | +-------+ + +---+ + +---+---+ | | | +---+---+ + +-------+ +--------+---+---+ | iohexol (OMNIPAQUE 350) 350 | Given | 07/03/19 | 56 mLs | | | | mg/mL injection 100 mL 100 mL, | | 20 10:40 | | | | | Intravenous, ONCE PRN, Other, | | PM PDT | | | | | Starting Mon07/03/19 at 2240, For | | | | | | | 1 dose, Cat Scanner | | | | | | + +-------+ +--------+---+---+ +---+---+ | | | +---+---+ + +-------+ +-------+---+---+ | lisinopril (PRINIVIL, ZESTRIL) | Given | 07/05/19 | 40 mg | | | | tablet 40 mg 40 mg, Oral, DAILY, | | 20 8:07 | | | | | First dose on Mon07/03/19 at | | AM PDT | | | | | 1830 | | | | | | + +-------+ +-------+---+---+ +-------+ +-------+---+---+ | Given | 07/04/19 | 40 mg | | | | | 20 8:23 | | | | | | AM PDT | | | | +-------+ +-------+---+---+ | Given | 07/03/19 | 40 mg | | | | | 20 6:15 | | | | | | PM PDT | | | | +-------+ +-------+---+---+ +---+---+ | | | +---+---+ + +-------+ +-------+---+---+ | metoprolol succinate | Given | 07/03/19 | 50 mg | | | | (TOPROL-XL) ER tablet 50 mg 50 | | 20 2:32 | | | | | mg, Oral, ONCE, 07/03/19 at | | PM PDT | | | | | 1335, For 1 dose, Tablet may be | | | | | | | cut where scored but do not | | | | | | | crush., | | | | | | + +-------+ +-------+---+---+ +---+---+ | | | +---+---+ + +-------+ +------+---+---+ | oxyCODONE (ROXICODONE) tablet 5 | Given | 07/05/19 | 5 mg | | | | mg 5 mg, Oral, ONCE, Fri | | 20 5:15 | | | | | 07/05/19 at 0530, For 1 dose | | AM PDT | | | | + +-------+ +------+---+---+ +---+---+ | | | +---+---+ + +-------+ +-------+---+---+ | pantoprazole (PROTONIX) DR | Given | 07/05/19 | 40 mg | | | | tablet 40 mg 40 mg, Oral, DAILY | | 20 8:06 | | | | | BEFORE BREAKFAST, First dose on | | AM PDT | | | | | 07/03/19 at 1830, Indication: | | | | | | | GERD | | | | | | + +-------+ +-------+---+---+ +-------+ +-------+---+---+ | Given | 07/04/19 | 40 mg | | | | | 20 5:40 | | | | | | AM PDT | | | | +-------+ +-------+---+---+ | Given | 07/03/19 | 40 mg | | | | | 20 6:15 | | | | | | PM PDT | | | | +-------+ +-------+---+---+ +---+---+ | | | +---+---+ + +-------+ +------+---+---+ | polyethylene glycol (MIRALAX) | Given | 07/05/19 | 17 g | | | | powder 17 g 17 g, Oral, DAILY, | | 20 8:08 | | | | | First dose on Mon07/03/19 at | | AM PDT | | | | | 2014, Mix with 8 oz. water., | | | | | | + +-------+ +------+---+---+ +-------+ +------+---+---+ | Given | 07/04/19 | 17 g | | | | | 20 8:23 | | | | | | AM PDT | | | | +-------+ +------+---+---+ | Given | 07/03/19 | 17 g | | | | | 20 8:59 | | | | | | PM PDT | | | | +-------+ +------+---+---+ +---+---+ | | | +---+---+ + +---------+ +--------+-------+---+ | potassium chloride 20 mEq in | New Bag | 07/03/19 | 20 mEq | 130 | | | sodium chloride 0.9% 250 mL IVPB | | 20 11:30 | | mL/hr | | | 20 mEq, Intravenous, Administer | | AM PDT | | | | | over 2 Hours, ONCE, 07/03/19 | | | | | | | at 1130, For 1 dose | | | | | | + +---------+ +--------+-------+---+ +---+---+ | | | +---+---+ + +-------+ +--------+---+---+ | sodium chloride (PF) 0.9% | Given | 07/05/19 | 20 mLs | | | | injection flush 20 mL 20 mL, | | 20 8:17 | | | | | Intracatheter, EVERY 12 HOURS (2 | | AM PDT | | | | | times per day), First dose on Mon | | | | | | | 07/03/19 at 2300, Cat Scanner | | | | | | + +-------+ +--------+---+---+ +-------+ +--------+---+---+ | Given | 07/04/19 | 20 mLs | | | | | 20 8:37 | | | | | | AM PDT | | | | +-------+ +--------+---+---+ +---+---+ | | | +---+---+ + +---------+ +--------+---------+---+ | sodium chloride 0.9% (NS) bolus | New Bag | 07/03/19 | 2,259 | 1129.5 | | | 2,259 mL 2,259 mL (30 mL/kg | | 20 10:51 | mLs | mL/hr | | | 75.3 kg [place] weight), | | AM PDT | | | | | Intravenous, Administer over 2 | | | | | | | Hours, ONCE, 07/03/19 at 1050, | | | | | | | For 1 dose | | | | | | + +---------+ +--------+---------+---+ +---+---+ | | | +---+---+ + +---------+ +---+-------+---+ | sodium chloride 0.9% (NS) | New Bag | 07/04/19 | | 100 | | | infusion at 100 mL/hr, | | 20 4:12 | | mL/hr | | | Intravenous, CONTINUOUS, Starting | | AM PDT | | | | | Mon07/03/19 at 1700 | | | | | | + +---------+ +---+-------+---+ +---------+ +---+-------+---+ | New Bag | 07/03/19 | | 100 | | | | 20 6:04 | | mL/hr | | | | PM PDT | | | | +---------+ +---+-------+---+ +---+---+ | | | +---+---+ + +-------+ +--------+---+---+ | tamsulosin (FLOMAX) capsule 0.4 | Given | 07/04/19 | 0.4 mg | | | | mg 0.4 mg, Oral, 2 TIMES DAILY, | | 20 8:05 | | | | | First dose on Mon07/03/19 at | | PM PDT | | | | | 2100, Do [...] +-------+ +--------+---+---+ +-------+ +--------+---+---+ | Given | 07/03/19 | 0.4 mg | | | | | 20 8:59 | | | | | | PM PDT | | | | +-------+ +--------+---+---+ +---+---+ | | | +---+---+ + +---------+ + +-------+---+ | vancomycin 2,250 mg in sodium | New Bag | 07/04/19 | 2,250 mg | 209 | | | chloride 0.9% 500 mL IVPB 2,250 | | 20 12:36 | | mL/hr | | | mg (rounded from 2,145 mg = 25 | | PM PDT | | | | | mg/kg | | | | | | | 85.8 kg Adjusted weight), | | | | | | | Intravenous, Administer over 150 | | | | | | | Minutes, ONCE, [facility] 07/04/19 at | | | | | | | 1200, For 1 dose, Keep in | | | | | | | refrigerator., Indications: | | | | | | | Bacteremia | | | | | | + +---------+ + +-------+---+ +---+---+ | | | +---+---+ + +---------+ + +--------+---+ | vancomycin in NS (VANCOCIN) | New Bag | 07/05/19 | 1,250 mg | 166.7 | | | IVPB 1,250 mg 1,250 mg (rounded | | 20 11:59 | | mL/hr | | | from 1,287 mg = 15 mg/kg | | AM PDT | | | | | 85.8 kg Adjusted weight), | | | | | | | Intravenous, Administer over 90 | | | | | | | Minutes, EVERY 12 HOURS INTERVAL, | | | | | | | First dose on [facility] 07/04/19 at | | | | | | | 2300, Keep in refrigerator., | | | | | | | Indications: Bacteremia | | | | | | + +---------+ + +--------+---+ +---------+ + +--------+---+ | New Bag | 07/04/19 | 1,250 mg | 166.7 | | | | 20 10:58 | | mL/hr | | | | PM PDT | | | | +---------+ + +--------+---+ + +---+ | | | + +---+ | vancomycin in NS (VANCOCIN) | | | IVPB 1,250 mg 1,250 mg (rounded | | | from 1,287 mg = 15 mg/kg | | | 85.8 kg Adjusted weight), | | | Intravenous, Administer over 90 | | | Minutes, EVERY 12 HOURS INTERVAL, | | | First dose (after last reorder) | | | on Mon07/05/19 at 2300, | | | Vancomycin trough due 07/05 at | | | 1000. Please contact pharmacist | | | with trough result prior to | | | administering dose as dose | | | adjustment may be warranted. Keep | | | in refrigerator., Indications: | | | Bacteremia | | + +---+ | | | + +---+ | vancomycin per pharmacy | | | PHARMACY CONSULT, Starting Mon | | | 07/05/19 at 1251, Indications: | | | Bacteremia | | + +---+ | | | + +---+ documented in this encounter Additional Health Concerns [...]
--- OUTSIDE RECORDS SUMMARY | ~2019-10-12 | XMS | Encounter Summary ---
Demographics + + + | Address | [address] | | | [place] [address] | + + + | Home Phone [...] + + + | Author | [facility] | | | and [place] | + + + | Organization | [facility] | | | and [place] | + + + | Address | Unknown | + + + | Phone | Unavailable | + + + Support + + + + + | Name | Relationship | Address | Phone | + + + + + | Sammi Kohler | ECON | [place] [address] | | + + + + + Care Team Providers + +------+ + | Care Cluster Bore Operator Name | Role | Phone | + +------+ + | Mireya Pack NP | PCP | | + +------+ + Reason for Visit + + + | Reason | Comments | + + + | Blood Pressure | asymptomatic | + + + Encounter Details +--------+ + + + + | Date | Type | Department | Care Team | Description | +--------+ + + + + | 08/01/ | Telephone | [facility] | Lucia Amos | Blood Pressure | | 2020 | | [facility] | S, RN | (asymptomatic) | | | | [address] | | | | | | [place] | | | | | | [address] | | | | | | [phone] | | | +--------+ + + + [...] Telephone Encounter - Lucia Amos RN - 08/05/2019 8:20 AM PDTCall placed to [facility] ladonna abel, no answer, left VM with clinic phone number. elephone Encounter - Mireya Pack NP - 08/02/2019 4:2 9 PM PDTagree elephon e Encounter - Lucia Amos RN - 08/02/2019 3:32 PM PDTCall received from [facility] staff Destiny, c/o patient's BP is elevated 183/100 HR 113. Asymptomatic. He has his own BP machine now. Taking lisinopril 40mg one tab daily and metoprolol 50mg one tab twice daily. He has hydral azine 25mg one tab twice daily as needed if BP is > 170/80. Patient have not taken this yet. gave one tab for him to take. Patient also said that the hospital took him off hydralazine but he still has two bottles o f it according to RN. Also this med is still active on his file. However, it was d/c'd on 07/26/19 by the hospital on patient discharge by Tj Handley DO. Routed to PCP. Do you agree with patient continuing on hydralazine 25mg as needed if BP > 1 70/80? documented i n this encounter Plan of Treatment +--------+ + + + + | Date | Type | Specialty | Care Team | Description | +--------+ + + + + | 10/16/ | Anti-coag | Anticoagulation | Brittany Zaragoza | | | 2019 | visit | | [facility] [address] | | | | | | [place], | | | | | | [place] [address] | | | | | | [phone] | | | | | | | | +--------+ + + + + documented as of this encounter Visit Diagnoses Not on filedocumented in this encounter"
--- OUTSIDE RECORDS SUMMARY | ~2019-10-12 | XMS | Encounter Summary ---
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 Name | Role | Phone | + +------+ + | Mireya Pack NP | PCP | | + +------+ + Reason for Visit + + + | Reason | Comments | + + + | Dizziness | | + + + Encounter Details +--------+ + + + + | Date | Type | Department | Care Team | Description | +--------+ + + + + | 01/03/ | Emergency | [facility] | [place], | Dizziness (Primary | | 2019 - | | [facility] | PA-C [address] | Dx); Fall, initial | | | | CARE FLOOR [phone] [place] | encounter; Closed | | 01/05/ | | [address] | [address] | head injury, initial | | 2018 | | [place], [place] | [phone] | encounter; | | | | [address] | | Hyperglycemia | | | | [phone] | Patti Kelly DO | | | | | | [address] | | | | | | [place] [address] | | | | | | [phone] | | | | | | | | | | | | Georgia Riley MD | | | | | | [address] | | | | | | [place] [address] | | | | | | [phone] | | | | | | | [...] + + + | Blood Pressure | 169/72 | 01/05/2019 11:17 AM | | | | | PST | | + + + + + | Pulse | 81 | 01/05/2019 11:17 AM | | | | | PST | | + + + + + | Temperature | 36.7 C (98 F) | 01/05/2019 11:17 AM | | | | | PST | | + + + + + | Respiratory Rate | 20 | 01/05/2019 11:17 AM | | | | | PST | | + + + + + | Oxygen Saturation | 95% | 01/05/2019 11:17 AM | | | | | PST | | + + + + + | Inhaled Oxygen | - | - | | | Concentration | | | | + + + + + | Weight | 99.2 kg (218 lb 11.2 | 01/04/2019 3:00 AM | | | | oz) | PST | | + + + + + | Height | 180.3 cm (5' 11") | 01/04/2019 3:00 AM | | | | | PST | | + + + + + | Body Mass Index | 30.5 | 01/04/2019 3:00 AM | | | | | PST [...] documented as of this encounter Discharge Summaries Georgia Riley MD - 01/05/2019 12:10 PM PSTFormatting of this note might be different fro m the original. Service: Hospitalist Discharge Summary Date of Admission: 01/03/2019 Date of Discharge: 01/05/2019 Discharge Provider: Georgia Riley MD Discharge Diagnoses: Principal Problem: Dizziness Active Problems: Fall from ground level Uncontrolled type 2 diabetes mellitus with hyperglycemia COPD (chronic obstructive pulmonary disease) KESHAWN (acute kidney injury) Chronic anticoagulation Developmental delay Resolved Problems: * No resolved hospital problems. * Significant Diagnostic Studies: Carotid Doppler showed the following: Right: Negative for hemodynamically significant stenosis. (Less than 50% ICA stenosis. Primary parameters: Peak systolic ICA velocity < 125 cm/sec with carotid plaque or intimal thickening present. Secondary criteria: ICA/CCA ratio of <2 and ICA EDV < 40 cm/sec.) Left: Negative for hemodynamically significant stenosis. (Less than 50% ICA stenosis. Primary parameters: Peak systolic ICA velocity < 125 cm/sec with carotid plaque or intimal thickening present. Secondary criteria: ICA/CCA ratio of <2 and ICA EDV < 40 cm/sec.) MRI brain wo contrast shows the following: IMPRESSION: 1. No acute intracranial finding. Chronic intracranial findings as described above. 2. Unremarkable MRA of the head. MRA head wo contrast shows the following: IMPRESSION: 1. No acute intracranial finding. Chronic intracranial findings as described above. 2. Unremarkable MRA of the head. CT head C spine shows the following: IMPRESSION: 1. No acute intracranial abnormality. 2. Paranasal sinus disease as above. 3. No acute cervical spine abnormality with chronic findings, as above. Lipid panel shows the following: Triglycerides 496 HDL 25 TC 182 HOSPITAL COURSE: This 63-year-old male who presents to the ED with positional vertigo. Initial workup was targeted towards TIA which came back mostly negative. Symptoms were reproducible by pre ssing against the right ear. Examination of the auditory canal showed large amount of ear w ax and external auditory canals bilaterally. Hydrogen peroxide ear wash was attempted. Cecille kinsey was given meclizine for symptomatic management. Physical therapy also evaluated the pa aki and recommended outpatient therapy. Patient will be discharged today home with close follow up with PMD. Vertigo improved than before. No nausea. Patient is able to ambulate in the hospital. Vitals are stable otherwise. Vital Signs: BP 169/72 | Pulse 81 | Temp 36.7 C (98 F) (Oral) | Resp 20 | Ht 1.803 m (5' 11") | Wt 99.2 kg (218 lb 11.2 oz) | SpO2 95% | BMI 30.50 kg/m Patient is awake, alert, oriented to time, place and person Skin: Warm and supple Neck: No JVD Chest: Normal vesicular breath sounds, good air entry bilaterally CVS: S1S2 audible, no murmurs heard Abdomen: Soft, non tender, normal bowel sounds, no organomegaly Extremities: No pedal edema, clubbing or cyanosis Neurologic examination: No focal sensory or motor deficits Back examination: No CVA tenderness, no spinal tenderness Disposition: home Condition: Fair No discharge procedures on file. Follow up: No follow-ups on file. Discharge took 35 minutes, to include final examination, discussion of admission, and prepa ration of prescriptions, instructions for on-going care, follow-up and documentation of disc harge summary. Discharge Medications New Medications Details meclizine 25 mg tablet Take 1 tablet by mouth every 8 hours as needed for Dizziness for up to 10 days. aka: ANTIVERT Unchanged Medications Details accu-chek multiclix Misc 1 [...] Take 1 tablet by mouth nightly. aka: Sokolin Blood Glucose Monitor System w/Device Kit Dispense [...] insulin detemir 100 units/mL injection (pen) Inject 60 Units under the skin nightly. aka: LEVEMIR FLEXTOUCH Insulin Pen Needle 32G X 4 MM Misc For insulin administration 4 times daily aka: BD PEN NEEDLE KYAW U/F lisinopril 10 mg tablet Take 2 tablets [...] times daily (before meals). Plus sliding scale omeprazole 20 mg capsule Take 1 capsule by mouth every morning (before breakfast). aka: priLOSEC tamsulosin 0.4 mg Caps Take 1 capsule by mouth 2 times daily. aka: FLOMAX Discontinued Medications aspirin 81 MG tablet documented in this en counter Discharge Instructions Instructions Nick Thompson RN - 01/05/2019 Meclizine tablets or capsules Brand Names: Antivert, Dramamine Less Drowsy, Dramamine-N, Meni-D What is this medicine? MECLIZINE (FRANTZ alex) is an antihistamine. It is used to prevent nausea, vomiting, or diz ziness caused by motion sickness. It is also used to prevent and treat vertigo (extreme dizz iness or a feeling that you or your surroundings are tilting or spinning around). How should I use this medicine? Take this medicine by mouth with a glass of water. Follow the directions on the prescriptio n label. If you are using this medicine to prevent motion sickness, take the dose at least 1 hour before travel. If it upsets your stomach, take it with food or milk. Take your doses a t regular intervals. Do not take your medicine more often than directed. Talk to your electric welder helper regarding the use of this medicine in children. Special care may be needed. What side effects may I notice from receiving this medicine? Side effects that you should report to your doctor or health transitional care nurse as soon as p ossible: feeling faint or lightheaded, falls fast, irregular heartbeat Side effects that usually do not require medical attention (report to your doctor or health transitional care nurse if they continue or are bothersome): constipation headache trouble passing urine or change in the amount of urine trouble sleeping upset stomach What may interact with this medicine? Do not take this medicine with any of the following medications: MAOIs like Carbex, Eldepryl, Marplan, Nardil, and Parnate This medicine may also interact with the following medications: alcohol antihistamines for allergy, cough and cold certain medicines for anxiety or sleep certain medicines for depression, like amitriptyline, fluoxetine, sertraline certain medicines for seizures like phenobarbital, primidone general anesthetics like halothane, isoflurane, methoxyflurane, propofol local anesthetics like lidocaine, pramoxine, tetracaine medicines that relax muscles for surgery narcotic medicines for pain phenothiazines like chlorpromazine, mesoridazine, prochlorperazine, thioridazine What if I miss a dose? If you miss a dose, take it as soon as you can. If it is almost time for your next dose, ta ke only that dose. Do not take double or extra doses. Where should I keep my medicine? Keep out of the reach of children. Store at room temperature between 15 and 30 degrees C (59 and 86 degrees F). Keep container tightly closed. Throw away any unused medicine after the expiration date. What should I tell my health care provider before I take this medicine? They need to know if you have any of these conditions: glaucoma lung or breathing disease, like asthma problems urinating prostate disease stomach or intestine problems an unusual or allergic reaction to meclizine, other medicines, foods, dyes, or preservat dory or trying to get breast-feeding What should I watch for while using this medicine? Tell your doctor or healthcare professional if your symptoms do not start to get better or if they get worse. You may get drowsy or dizzy. Do not drive, use machinery, or do anything that needs mental alertness until you know how this medicine affects you. Do not stand or sit up quickly, yenny cially if you are an older patient. This reduces the risk of dizzy or fainting spells. Alcoh ol may interfere with the effect of this medicine. Avoid alcoholic drinks. Your mouth may get dry. Chewing sugarless gum or sucking hard candy, and drinking plenty of water may help. Contact your doctor if the problem does not go away or is severe. This medicine may cause dry eyes and blurred vision. If you wear contact lenses you may fee l some discomfort. Lubricating drops may help. See your eye doctor if the problem does not g o away or is severe. NOTE:This sheet is a summary. It may not cover all possible information. If you have questi ons about this medicine, talk to your doctor, pharmacist, or health care provider. Copyright 2019 [employer] Possible Causes of Dizziness or Fainting Dizziness and fainting can have many causes. Below are some examples ofpossible causes yo ur healthcare provider will look to rule out. Benign paroxysmal positional vertigo (BPPV) BPPV results when calcium crystals inside the inner ear shift into the wrong position. BPPV causes episodes of vertigo, a spinning sensation. Episodes most often happen when the head is moved in a certain way. This is more common in people age 65 and older. Infection or inflammation The semicircular canals of the ear may become infected or inflamed. In this case, they can send the wrong balance signals. This can cause vertigo. Meniere disease Meniere disease happens when there is too much fluid in the semicircular canals. This can c ause vertigo. It also can cause hearing problems and buzzing or ringing in the ears (called tinnitus). You may also have a feeling of pressure or fullness in the ear. Syncope Syncope is fainting that happens when the brain doesn t get enough oxygen-rich blood. It can be caused by low heart rate or low blood pressure. This is called vasovagal syncope. It can also be caused by sitting or standing up too quickly. This is called orthostatic hypoten ivana. Syncope may also be due to a heart valve problem, an abnormal heart rhythm, or other h eart problems. Dizziness can also happen from stroke, hemorrhage in the brain, or other prob lems in the brain. Your healthcare provider may do certain tests to rule out these condition s. Other causes Other causes include: Medicines. Certain medicines can cause dizziness and even fainting. In some cases, stopp ing a medicine too quickly can lead to withdrawal symptoms, including dizziness and fainting . Anxiety. Being anxious can lead to breathing changes, such as hyperventilation. These ca n lead to dizziness and fainting. Additional causes for dizziness and fainting also exist.Talk with your healthcare provide r for more information. Date Last Reviewed: 06/06/201719994832-3323 [employer]. [address] [place] [address]. All righ ts reserved. This information is not intended as a substitute for professional medical care. Always follow your healthcare professional's instructions. documented in this encounter Medications at Time [...] documented as of this encounter Progress Notes Nick Thompson RN - 01/05/2019 1:37 PM PSTPt stable at the time of DC. Patient discharged via [employer] to home. AVS gone over and given to patient. All medications, follow up katy ointments, and education materials reviewed. All patient questions answered. Belongings sent with patient. Iv removed. Nick Putnam RN - 01/05/2019 10:27 AM PSTEar wax removal procedure done per MD order. Pt reported mild dizziness during procedure, but tolerated it well. Marifer Euceda RN - 01/04/2019 11:22 PM PSTPt ambulated up and down the hallway using 4WW and standby assist only. Denied dizziness , pt appeared stable and well balanced at a normal walking speed. Nick Putnam RN - 01/04/2019 6:27 PM P STPt uses call light appropriately. Pt compliant with care. End of shift chart audit check complete.Electronically signed by Nick Thompson RN at 01/04 6:29 PM Nick Putnam RN - 01/04/2019 9:46 AM PSTCNA notified this RN about pt BS >400, glucose verification ordered from lab. Electronically signed by EVE Lombardi 01/04/2019 9:47 AM PSTdocumented in this encounter H&P Notes Patti Kelly DO - 01/04/2019 12:30 AM PSTFormatting of this note might be different from chetan sarmiento. [facility] Service: Hospitalist Admission History & Physical Date of Admission: 01/03/2019 Primary Care Physician: Mireya Pack NP Reason for Admission: Dizziness, fall from ground-level, uncontrolled diabetes, COPD, acute kidney injury, chronic anticoagulation and developmentally delayed History obtained chart review and the patient. CHIEF COMPLAINT: Chief Complaint Patient presents with Dizziness HISTORY OF PRESENT ILLNESS The patient is a 63 y.o. male with significant past medical history of TIA, renal failure, obstructive sleep apnea, obesity, hypertension, dyslipidemia, long-term anticoagulation, GI bleed, DVT, diabetes, developmentally delay, depression, COPD, atrial fibrillation, anxiety and other comorbid conditions who presents with dizziness. The dizziness has been present f or 12 hours. The patient describes the symptoms as vertigo. Symptoms are exacerbated by walk ing and caused him to fall in the kitchen. Patient walked into the kitchen and fell forward hitting his head on the wall really hard. No LOC, SOB or SOB prior to the fall.The patient d enies of otorrhea, tinnitus or hearing loss. Patient reports palpitations. Medications sodium chloride 0.9% (NS) bolus 1,000 mL (0 mLs Intravenous Stopped 01/04/19 0056) insulin regular (humuLIN R, novoLIN R) injection 7 Units (7 Units Intravenous Given 2220) meclizine (ANTIVERT) tablet 25 mg (25 mg Oral Given 01/03/192220) Active comorbid conditions include: - angina - dysrhythmias; atrial fibrillation; paroxysmal - hypertension; essential - PVD - COPD - sleep apnea; obstructive - obesity - CVA; past history of - TIA Review of Systems Constitutional: Negative for activity change, chills, diaphoresis, fatigue and fever. HENT: Negative for congestion, ear discharge, ear pain, hearing loss, nosebleeds and sinus pressure. Eyes: Negative for redness and visual disturbance. Respiratory: Negative for apnea, cough, choking, chest tightness and shortness of breath. Cardiovascular: Positive for palpitations. Negative for chest pain and leg swelling. Gastrointestinal: Positive for constipation. Negative for abdominal distention, abdominal p ain, blood in stool, diarrhea, nausea and vomiting. Endocrine: Negative for cold intolerance, heat intolerance, polydipsia, polyphagia and poly uria. Genitourinary: Positive for difficulty urinating and dysuria. Negative for flank pain, freq uency, genital sores and hematuria. Musculoskeletal: Positive for gait problem (uses a cane). Negative for arthralgias, back pa in and neck pain. Skin: Negative for color change, pallor, rash and wound. Allergic/Immunologic: Negative for environmental allergies and immunocompromised state. Neurological: Positive for dizziness. Negative for seizures, facial asymmetry, speech diffi culty, light-headedness, numbness and headaches. Hematological: Does not bruise/bleed easily. Psychiatric/Behavioral: Positive for confusion (mild confusion). Negative for agitation, be havioral problems, decreased concentration and hallucinations. The patient is not nervous/an xious. 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 Obesity, Class I, BMI 30-34.9 07/08/2013 WARD (obstructive sleep apnea) 08/11/2012 does not use CPAP because of the noise Other chronic pain Renal failure Stroke (HCC) TIA (transient ischemic attack) Unspecified visual disturbance reading glasses PAST SURGICAL HISTORY Past Surgical History: Procedure Laterality [...] - INCISIONAL; Surgeon: Jevon Vargas DO; Location: [facility] MAIN OR; Service: General; Laterality: N/A; KNEE SURGERY rt knee, patella LEG SURGERY LLE OTHER SURGICAL HISTORY UNLISTED PROCEDURE ARTHROSCOPY OTHER SURGICAL HISTORY Left 05/05/2014 SKIN LESION EXCISION - Procedure: EXCISION - LESION - FROZEN SECTION; Surgeon: Sy murcia MD; Location: [facility] MAIN OR; Service: Plastics; Laterality: Left; forearm SKIN BIOPSY SKIN CANCER EXCISION Left 10/10/2012 Procedure: EXCISION - SKIN CANCER; Surgeon: Sy Fierro MD; Location: [facility] MAIN OR; Service: Plastics; Laterality: Left; upper arm and upper back w/frozen section UPPER GASTROINTESTINAL ENDOSCOPY UPPER GASTROINTESTINAL ENDOSCOPY 03/03/2013 Procedure: ESOPHAGOGASTRODUODENOSCOPY; Surgeon: Howie Gibson MD; Location: [facility] ENDOSCOPY; rvice: Gastroenterology; Laterality: N/A; ALLERGIES Allergies Allergen Reactions Nitroglycerin Swelling Tongue swelling Vitamin B12 Rash Rash HOME MEDICATIONS Prior to Admission medications Medication Sig Start [...] 2 times daily. 11/07/18 Mireya ruvalcaba NP SOCIAL HISTORY reports that he has never smoked. He has never used smokeless tobacco. He reports current alcohol use. He reports that he does not use drugs. FAMILY HISTORY family history includes Diabetes, NIDDM in his sister; Heart disease in his father and sist er; Other (see comment) in his brother. PHYSICAL EXAM BP 146/71 | Pulse 78 | Temp 36.3 C (97.3 F) | Resp 16 | Wt 98 kg (216 lb 0.8 oz) | SpO2 97% | BMI 30.13 kg/m Physical Exam Constitutional: General: He is not in acute distress. Appearance: He is well-developed. He is not diaphoretic. Comments: Chronic speech impediment HENT: Head: Normocephalic and atraumatic. Right Ear: External ear normal. Left Ear: External ear normal. Nose: Nose normal. Mouth/Throat: Pharynx: No oropharyngeal exudate. Eyes: General: No scleral icterus. Right eye: No discharge. Left eye: No discharge. Conjunctiva/sclera: Conjunctivae normal. Pupils: Pupils are equal, round, and reactive to light. Neck: Musculoskeletal: Normal range of motion and neck supple. Cardiovascular: Rate and Rhythm: Normal rate and regular rhythm. Heart sounds: Normal heart sounds. No murmur. Pulmonary: Effort: Pulmonary effort is normal. No respiratory distress. Breath sounds: Normal breath sounds. No wheezing or rales. Chest: Chest wall: No tenderness. Abdominal: General: Bowel sounds are normal. There is no distension. Palpations: Abdomen is soft. Tenderness: There is no tenderness. Musculoskeletal: Normal range of motion. General: No tenderness or deformity. Skin: General: Skin is warm and dry. Findings: No erythema or rash. Neurological: Mental Status: He is alert and oriented to person, place, and time. Cranial Nerves: No cranial nerve deficit. Sensory: No sensory deficit. Motor: No abnormal muscle tone. Coordination: Coordination normal. Comments: Horizontal nystagmus Psychiatric: Behavior: Behavior normal. Thought Content: Thought content normal. Judgment: Judgment normal. Comments: Child like speech DATA Recent Results (from the past 24 hour(s)) CBC with Differential Result Value Ref Range WBC 12.63 (H) 3.80 - 11.00 K/uL RBC 6.08 (H) 4.20 - 5.70 M/uL Hemoglobin 17.4 (H) 13.2 - 17.0 g/dL Hematocrit 50.6 (H) 39.0 - 50.0 % MCV 83.3 80.0 - 100.0 fl MCH 28.7 27.0 - 34.0 pg MCHC 34.5 32.0 - 35.5 g/dL RDW-SD 41.6 37 - 53 fl Platelet Count 336 150 - 400 K/uL MPV 7.5 fl Diff Type AUTOMATED % Neutrophils 54.02 % % Lymphocytes 29.42 % Monocyte % 9.10 % Eosinophils % 6.74 % Basophils % 0.72 % Neutrophils, Absolute 6.82 1.90 - 7.40 K/uL Absolute Lymphocytes 3.72 1.00 - 3.90 K/uL Absolute Monocytes 1.15 (H) 0.00 - 0.80 K/uL Eosinophils, Absolute 0.85 (H) 0.00 - 0.50 K/uL Basophils, Absolute 0.09 0.00 - 0.10 K/uL RBC Morphology NORMAL PLT MORPH Platelet Estimate ADEQUATE Comment SLIDE SCANNED, AGREES WITH AUTOMATED RESULTS. Comprehensive Metabolic Panel Result Value Ref Range Na 140 135 - 145 mmol/L K 3.9 3.5 - 4.9 mmol/L Cl 100 99 - 109 mmol/L CO2 28 23 - 32 mmol/L Anion Gap 16 5 - 20 mmol/L Glucose 379 (H) 65 - 99 mg/dL BUN 19 8 - 25 mg/dL Creatinine 1.37 (H) 0.70 - 1.30 mg/dL BUN/Creatinine Ratio 14 Calcium 10.1 8.5 - 10.5 mg/dL Protein, Total 7.4 6.3 - 8.2 g/dL Albumin 4.4 3.3 - 4.8 g/dL Globulin 3.0 1.3 - 4.9 g/dL A/G Ratio 1.5 1.0 - 2.4 BILIRUBIN, TOTAL 0.3 0.1 - 1.5 mg/dL ALK PHOS 173 (H) 35 - 115 U/L AST 28 10 - 45 U/L ALT 22 10 - 65 U/L Estimated GFR 52 (L) >60 mL/min/1.73m2 Troponin I Result Value Ref Range Troponin I 0.019 0.00 - 0.04 ng/mL CK-MB Result Value Ref Range CK-MB 2.1 0.5 - 3.6 ng/mL CK Index UNABLE TO CALCULATE Protime INR Result Value Ref Range INR 0.9 PTT Result Value Ref Range PTT 27 23 - 32 seconds POC Glucose Result Value Ref Range Glucose, POC 385 (H) 65 - 99 mg/dL POC Glucose Result Value Ref Range Glucose, POC 210 (H) 65 - 99 mg/dL Microbiology Results (Last 14 Days by Collected Date with Culture/Sensitivity) Procedure Component Value Units Date/Time Occ Bld Stl For Colorectal Neoplasm Scr [[id number]] Order Status: Canceled Lab Status: No result Specimen: Stool IMAGING Ct Head Cervical Spine Wo Contrast Result Date: 01/03/2019 CT HEAD WITHOUT CONTRAST; CT CERVICAL SPINE WITHOUT CONTRAST CLINICAL INFORMATION: Head tra klever, minor patient fall. COMPARISON: Head CT and cervical spine CT 12/01/2018. PROCEDURE: CT Head: Axial non-contrast images were obtained through the head. CT Cervical Spine: Thin sec tion noncontrast axial images were obtained through the cervical spine. Multiplanar reformat ions were obtained from the acquisition data. At least one of the following CT dose optimiza tion techniques were used: Automated exposure control; Adjustment of mA and/or kV according to patient size; Use of iterative reconstruction technique. FINDINGS: CT Head: Brain: No int racranial hemorrhage, midline shift or pathologic mass effect. No cerebral edema, mass lesio n, or evidence of infarct. Mild to moderate supratentorial volume loss similar to the previo us study. Ventricles and extra-axial fluid spaces: No hydrocephalus. Atherosclerotic calcifi cations in the bilateral anterior and posterior circulation. Paranasal sinuses and mastoid a ir cells: Slight worsening in current agfh-de-jnhhctod mucosal involving the right maxillary sinus inferiorly. Chronic opacification of the bilateral frontal sinuses in scattered bila teral ethmoid air cells. Calvarium and extracranial soft tissue: No acute calvarial abnormal ity. Cerumen is noted in the bilateral external auditory canals. Orbits: Imaged portions of the orbits are normal. CT Cervical Spine: Alignment: Normal. Vertebrae: No fractures or evid ence of acute cervical vertebral abnormality. Tiny unchanged sclerotic focus in the C7 vert ebral body measuring 4 mm potentially a small bone island. Cervical disc levels: No evidence of acute abnormality. Chronic mild multilevel degenerative disc disease. 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 Chronic facet arthropathy greatest on the left at C3-4, on the left at C4-5, and on the right at C6-7, moderate in degree. Paraspinal soft tissues: No evidence of acute parasp inal soft tissue abnormality. 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 1. No acute intracranial abnormality. 2. Paranasal sinus disease as above. 3. No acute cerv ical spine abnormality with chronic findings, as above. Signed by: Irina Gutierrez Sean Sign Date/Time: 01/03/2019 9:10 PM EKG at 2006: Normal sinus rhythm T wave abnormalities consider inferior ischemia and latera l ischemia read as prolonged QT of 486 and ventricular rate 87 ASSESSMENT & PLAN Principal Problem: Dizziness: -Unclear etiology -Associated with horizontal nystagmus and mildly prolonged QTC -MRI /MRA to rule out stroke or bleeding or mass -Differential diagnosis include peripheral causes as benign positional vertigo, vestibular neuritis versus central causes such as cerebral hemorrhage, infarction, cerebrovascular insu fficiency brain metastasis and orders -Carotid ultrasound -Fall precautions -Telemetry -Neurochecks -PT to evaluate Active Problems: Fall from ground level: -Secondary to dizziness -Fall precautions KESHAWN (acute kidney injury): -Likely secondary to dehydration and uncontrol DM II -IVF -Avoid nephrotoxins -Bladder scan as needed as patient has some difficulty urinating, is taking Flomax and aleyda steride Uncontrolled type 2 diabetes mellitus with hyperglycemia: -Likely secondary to diet -IV fluids -Insulin sliding scale -Hold oral anti-glycemic -May need adjustment of insulin COPD (chronic obstructive pulmonary disease): -No exacerbation -Metered-dose inhaler as needed Chronic anticoagulation: -History of PE, DVT and paroxysmal atrial fibrillation -Will restart tomorrow if MRI unremarkable Developmental delay: -Supportive care -Continue abilify GI and DVT prophylaxis Code Status: Prior Dictation software, Figure 8 Surgical, used which may contain errors for similar sounding words even a fter reviewed. Personal communication requested for any clarification Patti Kelly DO 01/04/2019 1:36 AM documented in this enc nter ED Notes Elmo Rader, Technologist - 01/04/2019 12:30 AM PSTBS was 210 Yanna Ochoa RN - 8:37 PM PSTNotified at this time by EVE Gonzalez that pt had a fall and hit his head and takes the blood thinner Eliquis. MTTA called overhead at this time. Ana Barber PA-C - 01/03/2019 8: 35 PM PST [facility] Department of Emergency Medicine No flowsheet data found. History of Present Illness Patient Identification Jania is a 63 y.o. male. Patient information was obtained from: patient. History/Exam limitations: none. Patient presented to the Emergency Department by: ambulance Chief Complaint Chief Complaint Patient presents with Dizziness Patient presents to the ED with DIZZINESS began at 7:30pm He had a FALL d/t dizziness and hit his head on wood floor at 7:30pm. He is on Eliquis States he ate Thanksgiving lunch at 2:30pm and then took a nap. He woke up at 7:30pm, was w alking without his cane (which he always uses) became dizzy and fell. He denies having LOC. Hit his forehead. Has forehead and neck pain denies having any preceding symptoms such as chest pain shortness of breath headache or abd pain. 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.] ROS Constitutional: Negative for: fever, chills, fatigue Head: Positive for: Head injury without loc Eyes: Negative for: irritated eyes, visual changes Nose: Negative for: Rhinorrhea, congestion Throat: Negative for: sore throat Neck: Positive for: Neck pain Cardiovascular/Respiratory: Negative for: chest pain, shortness of breath, cough Gastrointestinal: Negative for: abdominal pain, vomiting, diarrhea Genitourinary: Negative for: dysuria Musculoskeletal: Negative for: myalgias and arthralgias Skin: Negative for: rash or lesion Neuro and psych: Negative for: headache, syncope, numbness or tingling Positive for: dizziness Endocrine/Heme/Lymph: Negative for: swollen lymph nodes Physical Exam Temp: 36.6 C (97.8 F) Pulse: 92 Resp: 16 BP: 164/77 SpO2: 98 % Pulse Oximetry interpretation: Normal Physical Exam General: Alert, in no apparent distress lying semi fowlers speaks in full sentence moves al l extremities Head No obvious trauma is noted but states he hurts and feels swollen right forehead Eyes: Normal inspection, pupils "3" no nystagmus Conjunctiva clear, non-icteric, no palor ENT: Ears TMs blocked with cerumen Nose no purulent drainage Pharynx no erythema, no exudate, no edema, DRY MMM Neck: Normal inspection Supple with midline tenderness No lymphadenopathy No meningismus Cardiovascular: Rate and rhythm regular, no tachycardia, no bradycardia Respiratory: Breath sounds clear bilaterally, no chest wall pain with palpation, he has = c hest rise and fall Abdomen: Soft, non-tender, non-distended, bowel sounds normal No guarding or rebound Back: Normal inspection, no midline thoracic lumbar tenderness no CVA tenderness Skin: Color normal, no pallor, no jaundice, no cyanosis, no diaphoresis Warm and dry No rashes small abrasion right proximal forearm, no active bleeding, knees without trauma Neuro: No motor deficit No sensory deficit Medical Decision Making and Emergency Department Course Care initiated 2034 pt has been here 30 minute prior to my arrival. Pt on Eliquis and hit his head after f alling from feeling dizzy. . I called a modified trauma. I ordered a Head and Cspine CT to r /o trauma cardiac panel ekg troponin to r/o other causes for his dizziness 2116 CBC elevated WBC 12.63 elevated RBC 6.09 elevated H&H 17.4 & 50.6 CMP normal except elevated glucose 379 - will give IV insulin Creatinine is elevated at 1.37 will give IVFLuids Troponin is normal 2153 bedside glucose 385 , 7 units regular insulin ordered IV Updated pt on all results, rec a liter of IVFluids, then we will road test him, pt voices understanding CT of head and neck are normal Meclizine given 2220 IV insulin given 230 recheck IVFluids almost completed. He remains awake, he is able to turn his head from side to side without much dizziness, will road test him once IVfluids are completed. 234 renard Doll attempted to sit pt up but he felt too dizzy and laid back, he has no nyst agmus I rec admission and he agrees 001 bed request is made 29 Dr Kelly called, case discussed, she desires MRI of brain without contrast and MRA of brain without contrast. I called information technology manager who states MRA is no MRI angiogram on [facility] Results for orders placed or performed during the hospital encounter of 01/03/19 CBC with Differential Result Value Ref Range WBC 12.63 (H) 3.80 - 11.00 K/uL RBC 6.08 (H) 4.20 - 5.70 M/uL Hemoglobin 17.4 (H) 13.2 - 17.0 g/dL Hematocrit 50.6 (H) 39.0 - 50.0 % MCV 83.3 80.0 - 100.0 fl MCH 28.7 27.0 - 34.0 pg MCHC 34.5 32.0 - 35.5 g/dL RDW-SD 41.6 37 - 53 fl Platelet Count 336 150 - 400 K/uL MPV 7.5 fl Diff Type AUTOMATED % Neutrophils 54.02 % % Lymphocytes 29.42 % Monocyte % 9.10 % Eosinophils % 6.74 % Basophils % 0.72 % Neutrophils, Absolute 6.82 1.90 - 7.40 K/uL Absolute Lymphocytes 3.72 1.00 - 3.90 K/uL Absolute Monocytes 1.15 (H) 0.00 - 0.80 K/uL Eosinophils, Absolute 0.85 (H) 0.00 - 0.50 K/uL Basophils, Absolute 0.09 0.00 - 0.10 K/uL RBC Morphology NORMAL PLT MORPH Platelet Estimate ADEQUATE Comment SLIDE SCANNED, AGREES WITH AUTOMATED RESULTS. Comprehensive Metabolic Panel Result Value Ref Range Na 140 135 - 145 mmol/L K 3.9 3.5 - 4.9 mmol/L Cl 100 99 - 109 mmol/L CO2 28 23 - 32 mmol/L Anion Gap 16 5 - 20 mmol/L Glucose 379 (H) 65 - 99 mg/dL BUN 19 8 - 25 mg/dL Creatinine 1.37 (H) 0.70 - 1.30 mg/dL BUN/Creatinine Ratio 14 Calcium 10.1 8.5 - 10.5 mg/dL Protein, Total 7.4 6.3 - 8.2 g/dL Albumin 4.4 3.3 - 4.8 g/dL Globulin 3.0 1.3 - 4.9 g/dL A/G Ratio 1.5 1.0 - 2.4 BILIRUBIN, TOTAL 0.3 0.1 - 1.5 mg/dL ALK PHOS 173 (H) 35 - 115 U/L AST 28 10 - 45 U/L ALT 22 10 - 65 U/L Estimated GFR 52 (L) >60 mL/min/1.73m2 Troponin I Result Value Ref Range Troponin I 0.019 0.00 - 0.04 ng/mL CK-MB Result Value Ref Range CK-MB 2.1 0.5 - 3.6 ng/mL CK Index UNABLE TO CALCULATE Protime INR Result Value Ref Range INR 0.9 PTT Result Value Ref Range PTT 27 23 - 32 seconds POC Glucose Result Value Ref Range Glucose, POC 385 (H) 65 - 99 mg/dL POC Glucose Result Value Ref Range Glucose, POC 210 (H) 65 - 99 mg/dL Magnesium Result Value Ref Range Magnesium 1.8 1.7 - 2.4 mg/dL Lipid Panel Result Value Ref Range Cholesterol 182 <200 mg/dL Triglycerides 496 (H) <150 mg/dL HDL 25 (L) >40 mg/dL LDL, Calculated LDL NOT VALID WHEN TRIG >400 mg/dL <100 mg/dL Troponin I Result Value Ref Range Troponin I 0.016 0.00 - 0.04 ng/mL Troponin I Result Value Ref Range Troponin I 0.014 0.00 - 0.04 ng/mL CBC no Differential Result Value Ref Range WBC 11.41 (H) 3.80 - 11.00 K/uL RBC 4.96 4.20 - 5.70 M/uL Hemoglobin 14.3 13.2 - 17.0 g/dL Hematocrit 41.6 39.0 - 50.0 % MCV 84.0 80.0 - 100.0 fl MCH 28.9 27.0 - 34.0 pg MCHC 34.4 32.0 - 35.5 g/dL RDW-SD 42.4 37 - 53 fl Platelet Count 235 150 - 400 K/uL MPV 7.8 fl POC Glucose Result Value Ref Range Glucose, POC 238 (H) 65 - 99 mg/dL POC Glucose Result Value Ref Range Glucose, POC 252 (H) 65 - 99 mg/dL POC Glucose Result Value Ref Range Glucose, POC >400 (H) 65 - 99 mg/dL Records Reviewed Nursing notes. Laboratory Evaluation Labs Reviewed CBC WITH DIFFERENTIAL - Abnormal; Notable for the following components: Result Value WBC 12.63 (*) RBC 6.08 (*) Hemoglobin 17.4 (*) Hematocrit 50.6 (*) Absolute Monocytes 1.15 (*) Eosinophils, Absolute 0.85 (*) All other components within normal limits COMPREHENSIVE METABOLIC PANEL - Abnormal; Notable for the following components: Glucose 379 (*) Creatinine 1.37 (*) ALK PHOS 173 (*) Estimated GFR 52 (*) All other components within normal limits POC GLUCOSE (NON ORD) - Abnormal; Notable for the following components: Glucose, POC 385 (*) All other components within normal limits POC GLUCOSE (NON ORD) - Abnormal; Notable for the following components: Glucose, POC 210 (*) All other components within normal limits LIPID PANEL - Abnormal; Notable for the following components: Triglycerides 496 (*) HDL 25 (*) All other components within normal limits CBC NO DIFFERENTIAL - Abnormal; Notable for the following components: WBC 11.41 (*) All other components within normal limits POC GLUCOSE (NON ORD) - Abnormal; Notable for the following components: Glucose, POC 238 (*) All other components within normal limits POC GLUCOSE (NON ORD) - Abnormal; Notable for the following components: Glucose, POC 252 (*) All other components within normal limits POC GLUCOSE (NON ORD) - Abnormal; Notable for the following components: Glucose, POC >400 (*) All other components within normal limits TROPONIN I CK-MB PROTIME INR PTT MAGNESIUM TROPONIN I TROPONIN I GLUCOSE, RANDOM POCT GLUCOSE POCT GLUCOSE Radiology and EKG Evaluation Recent Results (from the past 360 hour(s)) CT Head Cervical Spine wo Contrast Narrative CT HEAD WITHOUT CONTRAST; CT CERVICAL SPINE WITHOUT CONTRAST CLINICAL INFORMATION: Head trauma, minor patient fall. COMPARISON: Head CT and cervical spine CT 12/01/2018. PROCEDURE: CT Head: Axial non-contrast images were [...] edema, mass lesion, or evidence of infarct. Mild to moderate supratentorial volume loss similar to the previous study. Ventricles and extra-axial fluid spaces: No hydrocephalus. Atherosclerotic calcifications in the bilateral anterior and posterior circulation. Paranasal sinuses and mastoid air cells: Slight worsening in current [id number] mucosal involving the right maxillary sinus inferiorly. Chronic opacification of the bilateral frontal sinuses in scattered bilateral ethmoid air cells. Calvarium and extracranial soft tissue: No acute calvarial abnormality. Cerumen is noted in the bilateral external auditory canals. Orbits: Imaged portions of the orbits are normal. CT Cervical Spine: Alignment: Normal. Vertebrae: No fractures or evidence of acute cervical vertebral abnormality. Tiny unchanged sclerotic focus in the C7 vertebral body measuring 4 mm potentially a small bone island. Cervical disc levels: No evidence of acute abnormality. Chronic mild multilevel degenerative disc disease. Facets and posterior spinal elements: No facet subluxation, dislocation, fracture, or evidence of acute abnormality. Chronic facet arthropathy greatest on the left at C3-4, on the left at C4-5, and on the right at C6-7, moderate in degree. Paraspinal soft tissues: No evidence of acute paraspinal soft tissue abnormality. 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 Impression 1. No acute intracranial abnormality. 2. Paranasal sinus disease as above. 3. No acute cervical spine abnormality with chronic findings, as above. Signed by: Irina Gutierrez Sean Sign Date/Time: 01/03/2019 9:10 PM MRI Angiogram Head wo Contrast Narrative MRI BRAIN WITHOUT CONTRAST; MRA BRAIN WITHOUT CONTRAST CLINICAL INFORMATION: Dizziness. COMPARISON: CT HEAD CERVICAL SPINE WO CONTRAST (01/03/2019); CT HEAD CERVICAL SPINE WO CONTRAST (12/01/2018); PROCEDURE: MRI Brain: Sagittal T1, axial FLAIR, axial T2, axial T1, axial gradient susceptibility, coronal T2, axial DWI. MRA Brain: 3-D [id number] MRA with MIP reformations. FINDINGS: MRI Brain: Brain: No intracranial hemorrhage. No midline shift or pathologic mass effect. No cerebral edema, restricted diffusion or evidence of acute infarct. Mild age related volume loss. Few FLAIR hyperintense foci in the periventricular and subcortical white matter likely suggesting mild changes of chronic microvascular ischemic gliosis. Ventricles and extra-axial fluid spaces: Normal. Sella, suprasellar cistern, and orbits: Normal. Calvarium and extracranial soft tissues: Normal. Paranasal sinuses and mastoid air cells: Mild to moderate mucosal thickening in the ethmoid sinuses. Opacification of the frontal sinuses. Mild mucosal thickening of the right maxillary sinus. No mastoid effusions. MRA Brain: Intracranial segments of the internal carotid arteries: Normal. Middle cerebral arteries and major MCA branch vessels: Normal. Anterior cerebral arteries and anterior communicating artery: Normal. Intracranial segments of the vertebral arteries and basilar artery: Normal. Posterior cerebral arteries: Normal. Impression 1. No acute intracranial finding. Chronic intracranial findings as described above. 2. Unremarkable MRA of the head. Signed by: Irina Eubanks, Dorinda Sign Date/Time: 01/04/2019 2:42 AM MRI Brain wo Contrast Narrative MRI BRAIN WITHOUT CONTRAST; MRA BRAIN WITHOUT CONTRAST CLINICAL INFORMATION: Dizziness. COMPARISON: CT HEAD CERVICAL SPINE WO CONTRAST (01/03/2019); CT HEAD CERVICAL SPINE WO CONTRAST (12/01/2018); PROCEDURE: MRI Brain: Sagittal T1, axial FLAIR, axial T2, axial T1, axial gradient susceptibility, coronal T2, axial DWI. MRA Brain: 3-D [id number] MRA with MIP reformations. FINDINGS: MRI Brain: Brain: No intracranial hemorrhage. No midline shift or pathologic mass effect. No cerebral edema, restricted diffusion or evidence of acute infarct. Mild age related volume loss. Few FLAIR hyperintense foci in the periventricular and subcortical white matter likely suggesting mild changes of chronic microvascular ischemic gliosis. Ventricles and extra-axial fluid spaces: Normal. Sella, suprasellar cistern, and orbits: Normal. Calvarium and extracranial soft tissues: Normal. Paranasal sinuses and mastoid air cells: Mild to moderate mucosal thickening in the ethmoid sinuses. Opacification of the frontal sinuses. Mild mucosal thickening of the right maxillary sinus. No mastoid effusions. MRA Brain: Intracranial segments of the internal carotid arteries: Normal. Middle cerebral arteries and major MCA branch vessels: Normal. Anterior cerebral arteries and anterior communicating artery: Normal. Intracranial segments of the vertebral arteries and basilar artery: Normal. Posterior cerebral arteries: Normal. Impression 1. No acute intracranial finding. Chronic intracranial findings as described above. 2. Unremarkable MRA of the head. Signed by: Irina Eubanks, Dorinda Sign Date/Time: 01/04/2019 2:42 AM Clinical Impression ICD-10-CM ICD-9-CM 1. Dizziness R42 780.4 2. Fall, initial encounter W19.XXXA E888.9 3. Closed head injury, initial encounter S09.90XA 959.01 4. Hyperglycemia R73.9 790.29 Disposition: Admit JULISSA Ye PA-C 01/04/19 0956 Associated attestation - Uriel New MD - 01/06/2019 2:01 AM PSTI was available for dire ct supervision of the MLP as needed, please see their note for details. Yanna Moore RN - 01/03/2019 8:03 PM PSTBed: ED20 Expected date: Expected time: Means of arrival: Comments: 1723 -dizzy documented in this encounter Miscellaneous Notes Plan of Care - Marifer Brooke RN - 01/05/2019 1:52 AM PST Problem: Adult Inpatient Plan of Care Goal: Plan of Care Review Outcome: Ongoing, progressing Plan of care reviewed with patient, all questions answered. Patient is cooperative and agre eable. Problem: Fall Injury Risk Goal: Absence of Fall and Fall-Related Injury Outcome: Ongoing, progressing Pt has remained free from injuries this shift. Yellow gown and nonskid socks provided, bed locked in lowest position. Call light, bedside table, and belongings accessible. Pt has been calling appropriately, dizziness resolved after with PRN Antivert. lan of Care - Nick Thompson RN - 01/04/2019 10:43 AM PST Problem: Adult Inpatient Plan of Care Goal: Optimal Comfort and Wellbeing Outcome: Ongoing, progressing Pt appears comfortable in bed. Pt is eager to know about the plan of care, pt educated abou t diagnostic tests. Problem: Fall Injury Risk Goal: Absence of Fall and Fall-Related Injury Outcome: Ongoing, progressing Patient educated on using call light for staff assistance and fall prevention strategies. Call light in reach, bed in lowest position. lan of Care - Georgia Riley MD - 01/04/2019 9:21 AM PSTEvaluated patient at bedside. Blood pressure is on the higher side. Renal function has been poor. IV fluids increased to 100 mL/h. Hold lisinopril for now. Resumed oral hydralazine and Pro cardia for blood pressure control. Patient also on carvedilol. Will advise IV PRN hydralaz ine. For vertigo, also advised oral meclizine as needed. Carotid Dopplers are being done. MRI of the brain does not show any signs of stroke. Physical therapy evaluation requested. Patient continues to be on Eliquis. May not require aspirin at this time. Supportive car e otherwise. For better blood sugar control, will continue with the Levemir 60 units along with adding 10 units of premeal Humalog 3 times a day with meals along with insulin sliding scale. Vertigo reproducible by compressing around the right ear. Patient mentions that the right ear has been bugging him for a while now. On examination of bilateral ears there is a lot o f cerumen noted in the external auditory canals bilaterally. We will try to wash it out wit h hydrogen peroxide if possible. 10 :20 PM PSTPlan of Karissa Briscoe RN - 01/04/2019 4:57 AM PSTEnd of shift audit complete. lan of Karissa Briscoe RN - 01/04/2019 4:48 AM PSTNo acute changes throughout the lico ft. Pt sleeping comfortably at this time and denies any pain. NS running at 50 ml/hr. Fall p recautions initiated, urinal at bed side. Pt instructed to use call light and is using it ap propriately. Negative Troponins [id number] signed by Karissa Matute RN at 019 4:51 AM PSTPlan of Karissa Briscoe RN - 01/04/2019 3:51 AM PST Problem: Adult Inpatient Plan of Care Goal: Plan of Care Review Outcome: Ongoing, progressing Problem: Adult Inpatient Plan of Care Goal: Patient-Specific Goal Outcome: Ongoing, progressing Problem: Adult Inpatient Plan of Care Goal: Absence of Hospital-Acquired Illness or Injury Outcome: Ongoing, progressing Problem: Adult Inpatient Plan of Care Goal: Optimal Comfort and Wellbeing Outcome: Ongoing, progressing Problem: Adult Inpatient Plan of Care Goal: Readiness for Transition of Care Outcome: Ongoing, progressing Problem: Adult Inpatient Plan of Care Goal: Rounds/Family Conference Outcome: Ongoing, progressing Problem: Fall Injury Risk Goal: Absence of Fall and Fall-Related Injury Outcome: Ongoing, progressing Fall precautions in place. Fall caesar, bed in lowest position, bed alarm on and audible, sahra spear adjusted, call light within reach, urinal at bedside. documented in this encounter Plan of Treatment +--------+ + + + + | Date | Type | Specialty | Care Team | Description | +--------+ + + + + | 10/16/ | Anti-coag | Anticoagulation | Brittany Zaragoza | | | 2019 | visit | | [address] | | | | | | [address] [place], | | | | | | [place] [address] | | | | | | [phone] | | | | | | | | +--------+ + + + + + +------+--------+ + + | Name | Type | Priori | Associated Diagnoses | Date/Time | | | | ty | | | + +------+--------+ + + | ED INFORMATION | COLTON | Routin | | 01/03/2019 8:03 PM | | EXCHANGE | | e | | PST | + +------+--------+ + + documented as of this encounter Procedures + +--------+ + + + | Procedure Name | Priori | Date/Time | Associated Diagnosis | Comments | | | ty | | | | + +--------+ + + + | BASIC METABOLIC | STAT | 01/05/2019 | | Results for this | | PANEL | | 12:27 PM | | procedure are in the | | | | PST | | results section. | + +--------+ + + + | POC GLUCOSE (NON | Routin | 01/05/2019 | | Results for this | | ORD) | e | 10:58 AM | | procedure are in the | | | | PST | | results section. | + +--------+ + + + | POC GLUCOSE (NON | Routin | 01/05/2019 | | Results for this | | ORD) | e | 7:22 AM | | procedure are in the | | | | PST | | results section. | + +--------+ + + + | POC GLUCOSE (NON | Routin | 01/04/2019 | | Results for this | | ORD) | e | 9:33 PM | | procedure are in the | | | | PST | | results section. | + +--------+ + + + | POC GLUCOSE (NON | Routin | 01/04/2019 | | Results for this | | ORD) | e | 4:38 PM | | procedure are in the | | | | PST | | results section. | + +--------+ + + + | POC GLUCOSE (NON | Routin | 01/04/2019 | | Results for this | | ORD) | e | 11:39 AM | | procedure are in the | | | | PST | | results section. | + +--------+ + + + | VAS CAROTID DUPLEX | Routin | 01/04/2019 | | Results for this | | BILATERAL | e | 10:12 AM | | procedure are in the | | | | PST | | results section. | + +--------+ + + + | GLUCOSE, RANDOM | STAT | 01/04/2019 | | Results for this | | | | 10:01 AM | | procedure are in the | | | | PST | | results section. | + +--------+ + + + | POC GLUCOSE (NON | Routin | 01/04/2019 | | Results for this | | ORD) | e | 9:41 AM | | procedure are in the | | | | PST | | results section. | + +--------+ + + + | TROPONIN I | Routin | 01/04/2019 | | Results for this | | | e | 6:44 AM | | procedure are in the | | | | PST | | results section. | + +--------+ + + + | POC GLUCOSE (NON | Routin | 01/04/2019 | | Results for this | | ORD) | e | 5:56 AM | | procedure are in the | | | | PST | | results section. | + +--------+ + + + | LIPID PANEL | Routin | 01/04/2019 | | Results for this | | | e | 3:28 AM | | procedure are in the | | | | PST | | results section. | + +--------+ + + + | TROPONIN I | Routin | 01/04/2019 | | Results for this | | | e | 3:28 AM | | procedure are in the | | | | PST | | results section. | + +--------+ + + + | CBC NO DIFFERENTIAL | Routin | 01/04/2019 | | Results for this | | | e | 3:28 AM | | procedure are in the | | | | PST | | results section. | + +--------+ + + + | POC GLUCOSE (NON | Routin | 01/04/2019 | | Results for this | | ORD) | e | 3:12 AM | | procedure are in the | | | | PST | | results section. | + +--------+ + + + | MRI BRAIN WO | ESCOBAR | 01/04/2019 | | Results for this | | CONTRAST | | 2:23 AM | | procedure are in the | | | | PST | | results section. | + +--------+ + + + | MRI ANGIOGRAM HEAD | ESCOBAR | 01/04/2019 | | Results for this | | WO CONTRAST | | 2:17 AM | | procedure are in the | | | | PST | | results section. | + +--------+ + + + | POC GLUCOSE (NON | Routin | 01/04/2019 | | Results for this | | ORD) | e | 12:28 AM | | procedure are in the | | | | PST | | results section. | + +--------+ + + + | POC GLUCOSE (NON | Routin | 01/03/2019 | | Results for this | | ORD) | e | 9:46 PM | | procedure are in the | | | | PST | | results section. | + +--------+ + + + | CT HEAD CERVICAL | STAT | 01/03/2019 | | Results for this | | SPINE WO CONTRAST | | 8:57 PM | | procedure are in the | | | | PST | | results section. | + +--------+ + + + | OXYGEN THERAPY | STAT | 01/03/2019 | | | | | | 8:08 PM | | | | | | PST | | | + +--------+ + + + | ECG 12 LEAD | STAT | 01/03/2019 | | Results for this | | | | 8:07 PM | | procedure are in the | | | | PST | | results section. | + +--------+ + + + | TROPONIN I | STAT | 01/03/2019 | | Results for this | | | | 8:04 PM | | procedure are in the | | | | PST | | results section. | + +--------+ + + + | CK-MB | STAT | 01/03/2019 | | Results for this | | | | 8:04 PM | | procedure are in the | | | | PST | | results section. | + +--------+ + + + | PTT | STAT | 01/03/2019 | | Results for this | | | | 8:04 PM | | procedure are in the | | | | PST | | results section. | + +--------+ + + + | PROTIME INR | STAT | 01/03/2019 | | Results for this | | | | 8:04 PM | | procedure are in the | | | | PST | | results section. | + +--------+ + + + | CBC WITH | STAT | 01/03/2019 | | Results for this | | DIFFERENTIAL | | 8:04 PM | | procedure are in the | | | | PST | | results section. | + +--------+ + + + | MAGNESIUM | Add-On | 01/03/2019 | | Results for this | | | | 8:04 PM | | procedure are in the | | | | PST | | results section. | + +--------+ + + + | COMPREHENSIVE | STAT | 01/03/2019 | | Results for this | | METABOLIC PANEL | | 8:04 PM | | procedure are in the | | | | PST | | results section. | + +--------+ + + + | ED INFORMATION | Routin | 01/03/2019 | | | | EXCHANGE | e | 8:03 PM | | | | | | PST | | | + +--------+ + + + +---+--------+ | | | | | Proced | | | ure | | | Note - | | | Richard, | | | Lab In | | | | | | Hlseve | | | n - | | | 11/28/ | | | 2019 | | | 8:04 | | | PM PST | | [...] | | | ON?11/ | | | [birth year]/201 | | | 9 | | | 20:02? | | | GR, | | | NORAH | | | | | | M?MRN: | | | | | | [id number] | | | [id number] | | | riteri | | | [...] | | 13 0 | | | [place] | | | s | | | Med[facility] | | | l | | | Center | | | 12 0 | | | [place] | | [...] | | int | | | Nov | | | 28, | | | 2019 | | | [facility] | | | | | | Region | | | al | | | [facility] | | | [place] | | | [place] | | | [place] | | | ncy | | | | | | [place] | | | ess | | | Nov 7, | | [...] | | | LEVEL | | | | | | Recent [...] | | s M.C. | | | [place] | | | [place] | | | [...] | | | /notif | | | [id number] | | | [id number] | | | [id number] | | | [id number] | | | [id number] | | | [id number] | | | 0d | | | PLEASE | | | [...] | +---+--------+ documented in this encounter Results Basic Metabolic Panel (01/05/2019 12:27 PM PST) + + + + + [...] + + + + | Glucose | 234 (H) | 65 - 99 [...] | 8.7 | 8.5 - 10.5 | [facility] | | | | | mg/dL | LABORATORY | | + + + + + + | Estimated | >60Comment: GFR <60: | >60 | [facility] | | | GFR | CHRONIC [...] | | | | | performed at [facility];[address] | | | | | | [facility];[place], [place] | | | | | | [address] | | | | + + + + + + + + | Specimen | + + | Blood | + + + + + + + | Performing | Address | City/State/Zipcode | Phone Number | | Organization | | | | + + + + + | [facility] | [address] | [place] [address] | [phone] | + + + + + POC Glucose (01/05/2019 10:58 AM PST) + + + + + + | Component | Value | Ref Range | Performed | Pathologist | | | | | At | Signature | + + + + + + | Glucose, | 245 (H)Comment: Testing | 65 - 99 mg/dL | [facility] | | | POC | performed at [facility];[address] | | LABORATORY | | | | [address];[place] | | | | | | [address] | | | | + + + + + + + + | Specimen | + + | | + + + + + + + | Performing | Address | City/State/Zipcode | Phone Number | | Organization | | | | + + + + + | [facility] | [address] | [place] [address] | [phone] | + + + + + POC Glucose (01/05/2019 7:22 AM PST) + + + + + + | Component | Value | Ref Range | Performed | Pathologist | | | | | At | Signature | + + + + + + | Glucose, | 116 (H)Comment: Testing | 65 - 99 mg/dL | [facility] | | | POC | performed at [facility];[address] | | LABORATORY | | | | [address];[place], [place] | | | | | | [address] | | | | + + + + + + + + | Specimen | + + | | + + + + + + + | Performing | Address | City/State/Zipcode | Phone Number | | Organization | | | | + + + + + | [facility] | [address] | [place] [address] | [phone] | + + + + + POC Glucose (01/04/2019 9:33 PM PST) + + + + + + | Component | Value | Ref Range | Performed | Pathologist | | | | | At | Signature | + + + + + + | Glucose, | 160 (H)Comment: Testing | 65 - 99 mg/dL | [facility] | | | POC | performed at [facility];[address] | | LABORATORY | | | | [address];[place] | | | | | | [address] | | | | + + + + + + + + | Specimen | + + | | + + + + + + + | Performing | Address | City/State/Zipcode | Phone Number | | Organization | | | | + + + + + | [facility] | [address] | [place] [address] | [phone] | + + + + + POC Glucose (01/04/2019 4:38 PM PST) + + + + + + | Component | Value | Ref Range | Performed | Pathologist | | | | | At | Signature | + + + + + + | Glucose, | 209 (H)Comment: Testing | 65 - 99 mg/dL | [facility] | | | POC | performed at [facility];[address] | | LABORATORY | | | | [address];[place] | | | | | | [address] | | | | + + + + + + + + | Specimen | + + | | + + + + + + + | Performing | Address | City/State/Zipcode | Phone Number | | Organization | | | | + + + + + | [facility] | [address] | [place] [address] | [phone] | + + + + + POC Glucose (01/04/2019 11:39 AM PST) + + + + + + | Component | Value | Ref Range | Performed | Pathologist | | | | | At | Signature | + + + + + + | Glucose, | 230 (H)Comment: Testing | 65 - 99 mg/dL | [facility] | | | POC | performed at [facility];[address] | | LABORATORY | | | | [address];[place] | | | | | | [address] | | | | + + + + + + + + | Specimen | + + | | + + + + + + + | Performing | Address | City/State/Zipcode | Phone Number | | Organization | | | | + + + + + | [facility] | [address] | [place] [address] | [phone] | + + + + + VAS Carotid Duplex Bilateral (01/04/2019 10:12 AM PST) + + | Specimen | + + | | + + + + + | Impressions | Performed At | + + + | Right: Negative for hemodynamically significant stenosis. | [facility] | | (Less than 50% ICA stenosis. Primary parameters: Peak systolic ICA | | | velocity < 125 cm/sec with carotid plaque or intimal thickening | | | present. Secondary criteria: ICA/CCA ratio of <2 and ICA EDV < 40 | | | cm/sec.) Left: Negative for hemodynamically significant stenosis. | | | (Less than 50% ICA stenosis. Primary parameters: Peak systolic ICA | | | velocity < 125 cm/sec with carotid plaque or intimal thickening | | | present. Secondary criteria: ICA/CCA ratio of <2 and ICA EDV < 40 | | | cm/sec.) Criteria based on society of radiologists in ultrasound | | | consensus criteria. Radiology. 2002;229(2):340-6. 2002Oct 24. | | | Signed by: Irina Ji, Kishan Sign Date/Time: 01/04/2019 | | | 10:16 AM | | + + + + + + | Narrative | Performed At | + + + | CAROTID DUPLEX ULTRASOUND CLINICAL INFORMATION: dizziness | [facility] | | COMPARISON: VAS CAROTID DUPLEX BILATERAL (10/12/2018); US CAROTID | | | DOPPLER BILATERAL (05/30/2014); US CAROTID DOPPLER BILATERAL | | | (12/02/2013); PROCEDURE: Evaluation of the extracranial carotid | | | and vertebral arteries with production of real-time images | | | integrating B-mode two-dimensional vascular structure, Doppler | | | spectral analysis and color-flow Doppler imaging. FINDINGS: Peak | | | systolic and diastolic velocities measured in the common and | | | internal carotid arteries. All velocities recorded in cm/sec: | | | Anterior Circulation: Right CCA: 99/12 ICA: 58/13 ECA: 167/10 | | | ICA/CCA: 0.6 Left CCA: 90/20 ICA: 98 /13 ECA: 123/12 ICA/CCA: | | | 1.1 Posterior Circulation: Right: Vertebral: 73/15 Antegrade | | | Left: Vertebral: 62/13 Antegrade Morrissey scale images: | | | Right: No significant atherosclerotic plaque or significant stenosis | | | by grayscale imaging. Left: Mild calcified plaque is seen of the | | | proximal internal carotid artery. | | + + + + + | Procedure Note | + + | Richard, Rad Results In - 01/04/2019 10:20 AM PST | | CAROTID DUPLEX ULTRASOUND | | | | CLINICAL INFORMATION: | | dizziness | | | | COMPARISON: | | VAS CAROTID DUPLEX BILATERAL (10/12/2018); US CAROTID DOPPLER BILATERAL | | (05/30/2014); US CAROTID DOPPLER BILATERAL (12/02/2013); | | | | PROCEDURE: | | Evaluation of the extracranial carotid and vertebral arteries with | | production of real-time images integrating B-mode two-dimensional | | vascular structure, Doppler spectral analysis and color-flow Doppler | | imaging. | | | | FINDINGS: | | Peak systolic and diastolic velocities measured in the common and | | internal carotid arteries. All velocities recorded in cm/sec: | | | | Anterior Circulation: | | | | Right | | CCA: 99/12 | | ICA: 58/13 | | ECA: 167/10 | | ICA/CCA: 0.6 | | | | Left | | CCA: 90/20 | | ICA: 98 /13 | | ECA: 123/12 | | ICA/CCA: 1.1 | | | | Posterior Circulation: | | | | Right: | | Vertebral: 73/15 Antegrade | | | | Left: | | Vertebral: 62/13 Antegrade | | | | Morrissey scale images: | | | | Right: No significant atherosclerotic plaque or significant stenosis by | | grayscale imaging. | | | | Left: Mild calcified plaque is seen of the proximal internal carotid | | artery. | | | | IMPRESSION: | | | | | | Right: Negative for hemodynamically significant stenosis. (Less than | | 50% ICA stenosis. Primary parameters: Peak systolic ICA velocity < 125 | | cm/sec with carotid plaque or intimal thickening present. Secondary | | criteria: ICA/CCA ratio of <2 and ICA EDV < 40 cm/sec.) | | | | Left: Negative for hemodynamically significant stenosis. (Less than 50% | | ICA stenosis. Primary parameters: Peak systolic ICA velocity < 125 | | cm/sec with carotid plaque or intimal thickening present. Secondary | | criteria: ICA/CCA ratio of <2 and ICA EDV < 40 cm/sec.) | | | | Criteria based on society of radiologists in ultrasound consensus | | criteria. Radiology. 2002;229(2):340-6. 2002Oct 24. | | | | | | | | Signed by: Irina Ji Richard | | Sign Date/Time: 01/04/2019 10:16 AM | + + + +---------+ + + | Performing | Address | City/State/Zipcode | Phone Number | | Organization | | | | + +---------+ + + | [facility] | | | | + +---------+ + + Glucose, Random (01/04/2019 10:01 AM PST) + + + + + + | Component | Value | Ref Range | Performed | Pathologist | | | | | At | Signature | + + + + + + | Glucose | 229 (H)Comment: Testing | 65 - 99 mg/dL | [facility] | | | | performed at [facility];[address] | | LABORATORY | | | | [address];[place] | | | | | | [address] | | | | + + + + + + + + | Specimen | + + | Blood | + + + + + + + | Performing | Address | City/State/Zipcode | Phone Number | | Organization | | | | + + + + + | [facility] | [address] [facility] | [place] [address] | [phone] | + + + + + POC Glucose (01/04/2019 9:41 AM PST) + + + + + + | Component | Value | Ref Range | Performed | Pathologist | | | | | At | Signature | + + + + + + | Glucose, | >400 (H)Comment: Testing | 65 - 99 mg/dL | [facility] | | | POC | performed at [facility];[address] | | LABORATORY | | | | [address];[place], [place] | | | | | | [address] | | | | + + + + + + + + | Specimen | + + | | + + + + + + + | Performing | Address | City/State/Zipcode | Phone Number | | Organization | | | | + + + + + | [facility] | [address] | [place] [address] | [phone] | + + + + + Troponin I (01/04/2019 6:44 AM PST) + + + + + + | Component | Value | Ref Range | Performed | Pathologist | | | | | At | Signature | + + + + + + | Troponin I | 0.014Comment: 0.04 | 0.00 - 0.04 | [facility] | | | | ng/mL or [...] at | | | | | | [facility];[address] [facility] | | | | | | [address];[place] [address] | | | | + + + + + + + + | Specimen | + + | Blood | + + + + + + + | Performing | Address | City/State/Zipcode | Phone Number | | Organization | | | | + + + + + | [facility] | [address] | [place] [address] | [phone] | + + + + + POC Glucose (01/04/2019 5:56 AM PST) + + + + + + | Component | Value | Ref Range | Performed | Pathologist | | | | | At | Signature | + + + + + + | Glucose, | 252 (H)Comment: Testing | 65 - 99 mg/dL | [facility] | | | POC | performed at [facility];[address] | | LABORATORY | | | | [address];[place] | | | | | | [address] | | | | + + + + + + + + | Specimen | + + | | + + + + + + + | Performing | Address | City/State/Zipcode | Phone Number | | Organization | | | | + + + + + | [facility] | [address] | [place] [address] | [phone] | + + + + + CBC no Differential (01/04/2019 3:28 AM PST) + + + + + + | Component | Value | Ref Range | Performed | Pathologist | | | | | At | Signature | + + + + + + | WBC | 11.41 (H) | 3.80 - 11.00 | [facility] | | | | | K/uL | LABORATORY | | + + + + + + | Red Blood | 4.96 | 4.20 - 5.70 | [facility] | | | Cells | | M/uL | LABORATORY | | + + + + + + | Hemoglobin | 14.3 | 13.2 - 17.0 | [facility] | | | | | g/dL | LABORATORY | | + + + + + + | Hematocrit | 41.6 | 39.0 - 50.0 % | [facility] | | | | | | LABORATORY | | + + + + + + | MCV | 84.0 | 80.0 - 100.0 fl | [facility] | | | | | | LABORATORY | | + + + + + + | MCH | 28.9 | 27.0 - 34.0 pg | [facility] [...] + + + + | Platelet | 235 | 150 - 400 K/uL | [facility] | | | Count | | | LABORATORY | | + + + + + + | MPV | 7.8Comment: Testing | fl | [facility] | | | | performed at [facility], [address] | | LABORATORY | | | | [address], | | | | | | [place] [address] | | | | + + + + + + + + | Specimen | + + | Blood | + + + + + + + | Performing | Address | City/State/Zipcode | Phone Number | | Organization | | | | + + + + + | [facility] | [address] | [place] [address] | [phone] | + + + + + Troponin I (01/04/2019 3:28 AM PST) + + + + + + | Component | Value | Ref Range | Performed | Pathologist | | | | | At | Signature | + + + + + + | Troponin I | 0.016Comment: 0.04 | 0.00 - 0.04 | [facility] [...] at | | | | | | [facility];[address] [facility] | | | | | | [address]vd;[place] [address] | | | | + + + + + + + + | Specimen | + + | Blood | + + + + + + + | Performing | Address | City/State/Zipcode | Phone Number | | Organization | | | | + + + + + | [facility] | [address] | [place] [address] | [phone] | + + + + + Lipid Panel (01/04/2019 3:28 AM PST) + + + + + + | Component | Value | Ref Range | Performed | Pathologist | | | | | At | Signature | + + + + + + | Cholesterol | 182Comment: SPECIMEN | <200 mg/dL | [facility] | | | | SLIGHTLY HEMOLYZED | | LABORATORY | | + + + + + + | Triglycerid | 496 (H)Comment: SPECIMEN | <150 mg/dL | [facility] | | | es | SLIGHTLY HEMOLYZED | | LABORATORY | | + + + + + + | HDL | 25 (L) | >40 mg/dL | [facility] | | | | | | LABORATORY | | + + + + + + | LDL, | LDL NOT VALID WHEN TRIG | <100 mg/dL | [facility] | | | Calculated | >400 mg/dLComment: | | LABORATORY | | | | Testing performed at | | | | | | [facility], [address] | | | | | | [place] | | | | | | [address] | | | | + + + + + + + + | Specimen | + + | Blood | + + + + + + + | Performing | Address | City/State/Zipcode | Phone Number | | Organization | | | | + + + + + | [facility] | [address] | [place] [address] | [phone] | + + + + + POC Glucose (01/04/2019 3:12 AM PST) + + + + + + | Component | Value | Ref Range | Performed | Pathologist | | | | | At | Signature | + + + + + + | Glucose, | 238 (H)Comment: Testing | 65 - 99 mg/dL | [facility] | | | POC | performed at [facility];[address] | | LABORATORY | | | | [address];[place], [place] | | | | | | [address] | | | | + + + + + + + + | Specimen | + + | | + + + + + + + | Performing | Address | City/State/Zipcode | Phone Number | | Organization | | | | + + + + + | [facility] | [address] | [place] [address] | [phone] | + + + + + MRI Brain wo Contrast (01/04/2019 2:23 AM PST) + + | Specimen | + + | | + + + + + | Impressions | Performed At | + + + | 1. No acute intracranial finding. Chronic intracranial findings | [facility] | | as described above. 2. Unremarkable MRA of the head. | | | Signed by: Irina Eubanks, Dorinda Sign Date/Time: 01/04/2019 2:42 AM | | + + + + + + | Narrative | Performed At | + + + | MRI BRAIN WITHOUT CONTRAST; MRA BRAIN WITHOUT CONTRAST | [facility] | | CLINICAL INFORMATION: Dizziness. COMPARISON: CT HEAD CERVICAL | | | SPINE WO CONTRAST (01/03/2019); CT HEAD CERVICAL SPINE WO CONTRAST | | | (12/01/2018); PROCEDURE: MRI Brain: Sagittal T1, axial FLAIR, | | | axial T2, axial T1, axial gradient susceptibility, coronal T2, axial | | | DWI. MRA Brain: 3-D [id number] MRA with MIP reformations. | | | FINDINGS: MRI Brain: Brain: No intracranial hemorrhage. No midline | | | shift or pathologic mass effect. No cerebral edema, restricted | | | diffusion or evidence of acute infarct. Mild age related volume loss. | | | Few FLAIR hyperintense foci in the periventricular and subcortical | | | white matter likely suggesting mild changes of chronic microvascular | | | ischemic gliosis. Ventricles and extra-axial fluid spaces: | | | Normal. Sella, suprasellar cistern, and orbits: Normal. | | | Calvarium and extracranial soft tissues: Normal. Paranasal sinuses | | | and mastoid air cells: Mild to moderate mucosal thickening in the | | | ethmoid sinuses. Opacification of the frontal sinuses. Mild | | | mucosal thickening of the right maxillary sinus. No mastoid | | | effusions. MRA Brain: Intracranial segments of the internal | | | carotid arteries: Normal. Middle cerebral arteries and major MCA | | | branch vessels: Normal. Anterior cerebral arteries and anterior | | | communicating artery: Normal. Intracranial segments of the | | | vertebral arteries and basilar artery: Normal. Posterior cerebral | | | arteries: Normal. | | + + + + + | Procedure Note | + + | Richard, Rad Results In - 01/04/2019 2:45 AM PST | | MRI BRAIN WITHOUT CONTRAST; MRA BRAIN WITHOUT CONTRAST | | | | CLINICAL INFORMATION: | | Dizziness. | | | | COMPARISON: | | CT HEAD CERVICAL SPINE WO CONTRAST (01/03/2019); CT HEAD CERVICAL SPINE | | WO CONTRAST (12/01/2018); | | | | PROCEDURE: | | MRI Brain: Sagittal T1, axial FLAIR, axial T2, axial T1, axial gradient | | susceptibility, coronal T2, axial DWI. | | | | MRA Brain: 3-D [id number] MRA with MIP reformations. | | | | FINDINGS: | | MRI Brain: | | Brain: No intracranial hemorrhage. No midline shift or pathologic mass | | effect. No cerebral edema, restricted diffusion or evidence of acute | | infarct. Mild age related volume loss. Few FLAIR hyperintense foci in | | the periventricular and subcortical white matter likely suggesting mild | | changes of chronic microvascular ischemic gliosis. | | | | Ventricles and extra-axial fluid spaces: Normal. | | | | Sella, suprasellar cistern, and orbits: Normal. | | | | Calvarium and extracranial soft tissues: Normal. | | | | Paranasal sinuses and mastoid air cells: Mild to moderate mucosal | | thickening in the ethmoid sinuses. Opacification of the frontal | | sinuses. Mild mucosal thickening of the right maxillary sinus. No | | mastoid effusions. | | | | MRA Brain: | | Intracranial segments of the internal carotid arteries: Normal. | | | | Middle cerebral arteries and major MCA branch vessels: Normal. | | | | Anterior cerebral arteries and anterior communicating artery: Normal. | | | | Intracranial segments of the vertebral arteries and basilar artery: | | Normal. | | | | Posterior cerebral arteries: Normal. | | | | IMPRESSION: | | 1. No acute intracranial finding. Chronic intracranial findings as | | described above. | | 2. Unremarkable MRA of the head. | | | | | | | | | | Signed by: Irina Eubnaks Sadaf | | Sign Date/Time: 01/04/2019 2:42 AM | + + + +---------+ + + | Performing | Address | City/State/Zipcode | Phone Number | | Organization | | | | + +---------+ + + | [facility] | | | | + +---------+ + + MRI Angiogram Head wo Contrast (01/04/2019 2:17 AM PST) + + | Specimen | + + | | + + + + + | Impressions | Performed At | + + + | 1. No acute intracranial finding. Chronic intracranial findings | [facility] | | as described above. 2. Unremarkable MRA of the head. | | | Signed by: Irina Eubanks, Dorinda Sign Date/Time: 01/04/2019 2:42 AM | | + + + + + + | Narrative | Performed At | + + + | MRI BRAIN WITHOUT CONTRAST; MRA BRAIN WITHOUT CONTRAST | [facility] | | CLINICAL INFORMATION: Dizziness. COMPARISON: CT HEAD CERVICAL | | | SPINE WO CONTRAST (01/03/2019); CT HEAD CERVICAL SPINE WO CONTRAST | | | (12/01/2018); PROCEDURE: MRI Brain: Sagittal T1, axial FLAIR, | | | axial T2, axial T1, axial gradient susceptibility, coronal T2, axial | | | DWI. MRA Brain: 3-D [id number] MRA with MIP reformations. | | | FINDINGS: MRI Brain: Brain: No intracranial hemorrhage. No midline | | | shift or pathologic mass effect. No cerebral edema, restricted | | | diffusion or evidence of acute infarct. Mild age related volume loss. | | | Few FLAIR hyperintense foci in the periventricular and subcortical | | | white matter likely suggesting mild changes of chronic microvascular | | | ischemic gliosis. Ventricles and extra-axial fluid spaces: | | | Normal. Sella, suprasellar cistern, and orbits: Normal. | | | Calvarium and extracranial soft tissues: Normal. Paranasal sinuses | | | and mastoid air cells: Mild to moderate mucosal thickening in the | | | ethmoid sinuses. Opacification of the frontal sinuses. Mild | | | mucosal thickening of the right maxillary sinus. No mastoid | | | effusions. MRA Brain: Intracranial segments of the internal | | | carotid arteries: Normal. Middle cerebral arteries and major MCA | | | branch vessels: Normal. Anterior cerebral arteries and anterior | | | communicating artery: Normal. Intracranial segments of the | | | vertebral arteries and basilar artery: Normal. Posterior cerebral | | | arteries: Normal. | | + + + + + | Procedure Note | + + | Richard, Rad Results In - 01/04/2019 2:45 AM PST | | MRI BRAIN WITHOUT CONTRAST; MRA BRAIN WITHOUT CONTRAST | | | | CLINICAL INFORMATION: | | Dizziness. | | | | COMPARISON: | | CT HEAD CERVICAL SPINE WO CONTRAST (01/03/2019); CT HEAD CERVICAL SPINE | | WO CONTRAST (12/01/2018); | | | | PROCEDURE: | | MRI Brain: Sagittal T1, axial FLAIR, axial T2, axial T1, axial gradient | | susceptibility, coronal T2, axial DWI. | | | | MRA Brain: 3-D [id number] MRA with MIP reformations. | | | | FINDINGS: | | MRI Brain: | | Brain: No intracranial hemorrhage. No midline shift or pathologic mass | | effect. No cerebral edema, restricted diffusion or evidence of acute | | infarct. Mild age related volume loss. Few FLAIR hyperintense foci in | | the periventricular and subcortical white matter likely suggesting mild | | changes of chronic microvascular ischemic gliosis. | | | | Ventricles and extra-axial fluid spaces: Normal. | | | | Sella, suprasellar cistern, and orbits: Normal. | | | | Calvarium and extracranial soft tissues: Normal. | | | | Paranasal sinuses and mastoid air cells: Mild to moderate mucosal | | thickening in the ethmoid sinuses. Opacification of the frontal | | sinuses. Mild mucosal thickening of the right maxillary sinus. No | | mastoid effusions. | | | | MRA Brain: | | Intracranial segments of the internal carotid arteries: Normal. | | | | Middle cerebral arteries and major MCA branch vessels: Normal. | | | | Anterior cerebral arteries and anterior communicating artery: Normal. | | | | Intracranial segments of the vertebral arteries and basilar artery: | | Normal. | | | | Posterior cerebral arteries: Normal. | | | | IMPRESSION: | | 1. No acute intracranial finding. Chronic intracranial findings as | | described above. | | 2. Unremarkable MRA of the head. | | | | | | | | | | Signed by: Irina Eubanks, Dorinda | | Sign Date/Time: 01/04/2019 2:42 AM | + + + +---------+ + + | Performing | Address | City/State[facility] | Phone Number | | Organization | | | | + +---------+ + + | [facility] | | | | + +---------+ + + POC Glucose (01/04/2019 12:28 AM PST) + + + + + + | Component | Value | Ref Range | Performed | Pathologist | | | | | At | Signature | + + + + + + | Glucose, | 210 (H)Comment: Testing | 65 - 99 mg/dL | [facility] | | | POC | performed at [facility];[address] | | LABORATORY | | | | [address];[place] | | | | | | [address] | | | | + + + + + + + + | Specimen | + + | | + + + + + + + | Performing | Address | City/State/Zipcode | Phone Number | | Organization | | | | + + + + + | [facility] | [address] | [place] [address] | [phone] | + + + + + POC Glucose (01/03/2019 9:46 PM PST) + + + + + + | Component | Value | Ref Range | Performed | Pathologist | | | | | At | Signature | + + + + + + | Glucose, | 385 (H)Comment: Testing | 65 - 99 mg/dL | [facility] | | | POC | performed at [facility];[address] | | LABORATORY | | | | [address];[place], [place] | | | | | | [address] | | | | + + + + + + + + | Specimen | + + | | + + + + + + + | Performing | Address | City/State/Zipcode | Phone Number | | Organization | | | | + + + + + | [facility] | [address] | [place] [address] | [phone] | + + + + + CT Head Cervical Spine wo Contrast (01/03/2019 8:57 PM PST) + + | Specimen | + + | | + + + + + | Impressions | Performed At | + + + | 1. No acute intracranial abnormality. 2. Paranasal sinus disease as | [facility] | | above. 3. No acute cervical spine abnormality with chronic findings, | | | as above. Signed by: Irina Gutierrez Sean Sign | | | Date/Time: 01/03/2019 9:10 PM | | + + + + + + | Narrative | Performed At | + + + | CT HEAD WITHOUT CONTRAST; CT CERVICAL SPINE WITHOUT CONTRAST | [facility] | | CLINICAL INFORMATION: Head trauma, minor patient fall. | | | COMPARISON: Head CT and cervical spine CT 12/01/2018. PROCEDURE: | | | CT Head: Axial non-contrast images were obtained through the head. | | | CT Cervical Spine: Thin section noncontrast axial images were | | | obtained through the cervical spine. Multiplanar reformations | | | were obtained from the acquisition data. At least one of the | | | following CT dose optimization techniques were used: Automated | | | exposure control; Adjustment of mA and/or kV according to patient | | | size; Use of iterative reconstruction technique. FINDINGS: CT | | | Head: Brain: No intracranial hemorrhage, midline shift or pathologic | | | mass effect. No cerebral edema, mass lesion, or evidence of infarct. | | | Mild to moderate supratentorial volume loss similar to the previous | | | study. Ventricles and extra-axial fluid spaces: No hydrocephalus. | | | Atherosclerotic calcifications in the bilateral anterior and | | | posterior circulation. Paranasal sinuses and mastoid air cells: | | | Slight worsening in current [id number] mucosal involving the | | | right maxillary sinus inferiorly. Chronic opacification of the | | | bilateral frontal sinuses in scattered bilateral ethmoid air cells. | | | Calvarium and extracranial soft tissue: No acute calvarial | | | abnormality. Cerumen is noted in the bilateral external auditory | | | canals. Orbits: Imaged portions of the orbits are normal. CT | | | Cervical Spine: Alignment: Normal. Vertebrae: No fractures or | | | evidence of acute cervical vertebral abnormality. Tiny unchanged | | | sclerotic focus in the C7 vertebral body measuring 4 mm potentially a | | | small bone island. Cervical disc levels: No evidence of acute | | | abnormality. Chronic mild multilevel degenerative disc disease. | | | Facets and posterior spinal elements: No facet subluxation, | | | dislocation, fracture, or evidence of acute abnormality. Chronic | | | facet arthropathy greatest on the left at C3-4, on the left at C4-5, | | | and on the right at C6-7, moderate in degree. Paraspinal soft | | | tissues: No evidence of acute paraspinal soft tissue abnormality. 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 | | + + + + + | Procedure Note | + + | Richard, Rad Results In - 01/03/2019 9:13 PM PST | | CT HEAD WITHOUT CONTRAST; CT CERVICAL SPINE WITHOUT CONTRAST | | | | CLINICAL INFORMATION: | | Head trauma, minor patient fall. | | | | COMPARISON: | | Head CT and cervical spine CT 12/01/2018. | | | | PROCEDURE: | | [...] edema, mass lesion, or evidence of infarct. Mild to | | moderate supratentorial volume loss similar to the previous study. | | | | Ventricles and extra-axial fluid spaces: No hydrocephalus. | | Atherosclerotic calcifications in the bilateral anterior and posterior | | circulation. | | | | Paranasal sinuses and mastoid air cells: Slight worsening in current | | [id number] mucosal involving the right maxillary sinus | | inferiorly. Chronic opacification of the bilateral frontal sinuses in | | scattered bilateral ethmoid air cells. | | | | Calvarium and extracranial soft tissue: No acute calvarial abnormality. | | Cerumen is noted in the bilateral external auditory canals. | | | | Orbits: Imaged portions of the orbits are normal. | | | | CT Cervical Spine: | | Alignment: Normal. | | | | Vertebrae: No fractures or evidence of acute cervical vertebral | | abnormality. Tiny unchanged sclerotic focus in the C7 vertebral body | | measuring 4 mm potentially a small bone island. | | | | Cervical disc levels: No evidence of acute abnormality. Chronic mild | | multilevel degenerative disc disease. | | | | Facets and posterior spinal elements: No facet subluxation, | | dislocation, fracture, or evidence of acute abnormality. Chronic facet | | arthropathy greatest on the left at C3-4, on the left at C4-5, and on | | the right at C6-7, moderate in degree. | | | | Paraspinal soft tissues: No evidence of acute paraspinal soft tissue | | abnormality. 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 | | | | IMPRESSION: | | 1. No acute intracranial abnormality. | | 2. Paranasal sinus disease as above. | | 3. No acute cervical spine abnormality with chronic findings, as above. | | | | | | | | | | Signed by: Irina Gutierrez Sean | | Sign Date/Time: 01/03/2019 9:10 PM | + + + +---------+ + + | Performing | Address | City/State/[facility] | Phone Number | | Organization | | | | + +---------+ + + | [facility] | | | | + +---------+ + + ECG 12 lead (01/03/2019 8:07 PM PST) + + + + + + | Component | Value | Ref Range | Performed | Pathologist | | | | | At | Signature | + + + + + + | VENTRICULAR | 87 | BPM | [facility] | | | RATE EKG | | | | | + + + + + + | ATRIAL RATE | 87 | BPM | [facility] | | + + + + + + | P-R | 162 | ms | [facility] | | | INTERVAL | | | | | + + + + + + | QRS | 76 | ms | [facility] | | | DURATION | | | | | + + + + + + | Q-T | 404 | ms | [facility] | | | INTERVAL | | | | | + + + + + + | Q-T | 486 | ms | [facility] | | [...] + + + | T AXIS | 2 | degrees | [facility] | | [...] of | | | | | | 13-DEC-2018 21:45,No | | | | | | significant [...] (500), | | | | | | general expeditor FEDERICO ELDER | | | | | | ([id number]) on 01/06/2019 | | | | | | 3:35:06 AM | | | | + + [...] | | + +---------+ + + Magnesium (01/03/2019 8:04 PM PST) + + + + + + | Component | Value | Ref Range | Performed | Pathologist | | | | | At | Signature | + + + + + + | Magnesium | 1.8Comment: Testing | 1.7 - 2.4 mg/dL | [facility] | | | | performed at [facility];[address] | | LABORATORY | | | | [address];[place] | | | | | | [address] | | | | + + + + + + + + | Specimen | + + | Blood | + + + + + + + | Performing | Address | City/State/Zipcode | Phone Number | | Organization | | | | + + + + + | [facility] | [address] | [place] [address] | [phone] | + + + + + PTT (01/03/2019 8:04 PM PST) + + + + + + | Component | Value | Ref Range | Performed | Pathologist | | | | | At | Signature | + + + + + + | PTT | 27Comment: Testing | 23 - 32 seconds | [facility] | | | | performed at [facility];[address] | | LABORATORY | | | [address];[place] | | | | | | [address] | | | | + + + + + + + + | Specimen | + + | Blood | + + + + + + + | Performing | Address | City/State/Zipcode | Phone Number | | Organization | | | | + + + + + | [facility] | [address] | [place] [address] | [phone] | + + + + + Protime INR (01/03/2019 8:04 PM PST) + + + + [...] | | | | | performed at [facility];[address] | | | | | | [address];[place], [place] | | | | | | [address] | | | | + + + + + + + + | Specimen | + + | Blood | + + + + + + + | Performing | Address | City/State/Zipcode | Phone Number | | Organization | | | | + + + + + | [facility] | [address] | [place] [address] | [phone] | + + + + + CK-MB (01/03/2019 8:04 PM PST) + + + + + + | Component | Value | Ref Range | Performed | Pathologist | | | | | At | Signature | + + + + + + | CK-MB | 2.1 | 0.5 - 3.6 ng/mL | [facility] | | | | | | LABORATORY | | + + + + + + | CK Index | UNABLE TO | | [facility] | | | | CALCULATEComment: | | LABORATORY | | | | Testing performed at | | | | | | [facility];[address] [place] [address] | | | | | | [place] [address] | | | | + + + + + + + + | Specimen | + + | Blood | + + + + + + + | Performing | Address | City/State/Zipcode | Phone Number | | Organization | | | | + + + + + | [facility] | [address] | [place] [address] | [phone] | + + + + + Troponin I (01/03/2019 8:04 PM PST) + + + + [...] at | | | | | | [facility];[address] [facility] | | | | | | [facility];[place] [address] | | | | + + + + + + + + | Specimen | + + | Blood | + + + + + + + | Performing | Address | City/State/Zipcode | Phone Number | | Organization | | | | + + + + + | [facility] | [address] | [place] [address] | [phone] | + + + + + Comprehensive Metabolic Panel (01/03/2019 8:04 PM PST) + + + + [...] + + + + | CO2 | 28 | 23 - 32 mmol/L | [facility] | | | | | | LABORATORY | | + + + + + + | Anion Gap | 16 | 5 - 20 mmol/L | [facility] | | | | | | LABORATORY | | + + + + + + | Glucose | 379 (H) | 65 - 99 mg/dL | [facility] | | | | | | LABORATORY | | + + + + + + | BUN | 19 | 8 - 25 mg/dL | [facility] | | | | | | LABORATORY | | + + + + + + | Creatinine | 1.37 (H) | 0.70 - 1.30 | [facility] | | | | | mg/dL | LABORATORY | | + + + + + + | BUN/Creatin | 14 | | [facility] | | | ine Ratio | | | LABORATORY | | + + + + + + | Calcium | 10.1 | 8.5 - 10.5 | [facility] | | | | | mg/dL | LABORATORY | | + + + + + + | Protein, | 7.4 | 6.3 - 8.2 g/dL | [facility] [...] + + + | ALK PHOS | 173 (H) | 35 - 115 U/L | [facility] | | | | | | LABORATORY | | + + + + + + | AST | 28 | 10 - 45 U/L | [facility] | | | | | | LABORATORY | | + + + + + + | ALT | 22 | 10 - 65 U/L | [facility] | | | | | | LABORATORY | | + + + + + + | Estimated | 52 (L)Comment: GFR <60: | >60 | [facility] | | | GFR | CHRONIC [...] | | | | | | MDRD [facility] traceable | | | | | | equation.Testing | | | | | | performed at [facility];[address] | | | | | | [address] [facility];[place], [place] | | | | | | [address] | | | | + + + + + + + + | Specimen | + + | Blood | + + + + + + + | Performing | Address | City/State/Zipcode | Phone Number | | Organization | | | | + + + + + | [facility] | [address] | [place] [address] | [phone] | + + + + + CBC with Differential (01/03/2019 8:04 PM PST) + + + + + + | Component | Value | Ref Range | Performed | Pathologist | | | | | At | Signature | + + + + + + | WBC | 12.63 (H) | 3.80 - 11.00 | [facility] | | | | | K/uL | LABORATORY | | + + + + + + | Red Blood | 6.08 (H) | 4.20 - 5.70 | [facility] | | | Cells | | M/uL | LABORATORY | | + + + + + + | Hemoglobin | 17.4 (H) | 13.2 - 17.0 | [facility] | | | | | g/dL | LABORATORY | | + + + + + + | Hematocrit | 50.6 (H) | 39.0 - 50.0 % | [facility] | | | | | | LABORATORY | | + + + + + + | MCV | 83.3 | 80.0 - 100.0 fl | [facility] | | | | | | LABORATORY | | + + + + + + | MCH | 28.7 | 27.0 - 34.0 pg | [facility] [...] + + + + | Platelet | 336Comment: RESULT | 150 - 400 K/uL | [facility] | | | Count | VERIFIED | | LABORATORY | | + + + + + + | MPV | 7.5 | fl | [facility] | | | | | | LABORATORY | | + + + + + + | Diff Type | AUTOMATED | | [facility] | | | | | | LABORATORY | | + + + + + + | % | 54.02 | % | [facility] | | | Neutrophils | | | LABORATORY | | + + + + + + | % | 29.42 | % | [facility] | | | Lymphocytes | | | LABORATORY | | + + + + + + | Monocyte % | 9.10 | % | [facility] | | | | | | LABORATORY | | + + + + + + | Eosinophils | 6.74 | % | [facility] | | | % | | | LABORATORY | | + + + + + + | Basophils % | 0.72 | % | [facility] | | | | | | LABORATORY | | + + + + + + | Neutrophils | 6.82 | 1.90 - 7.40 | [facility] | | | , Absolute | | K/uL | LABORATORY | | + + + + + + | Absolute | 3.72 | 1.00 - 3.90 | [facility] | | | Lymphocytes | | K/uL | LABORATORY | | + + + + + + | Absolute | 1.15 (H) | 0.00 - 0.80 | [facility] | | | Monocytes | | K/uL | LABORATORY | | + + + + + + | Eosinophils | 0.85 (H) | 0.00 - 0.50 | [facility] | | | , Absolute | | K/uL | LABORATORY | | + + + + + + | Basophils, | 0.09 | 0.00 - 0.10 | [facility] | | | Absolute | | K/uL | LABORATORY | | + + + + + + | RBC | NORMAL PLT MORPH | | [facility] | | | Morphology | | | LABORATORY | | + + + + + + | Platelet | ADEQUATE | | [facility] | | | Estimate | | | LABORATORY | | + + + + + + | Comment | SLIDE SCANNED, AGREES | | [facility] | | | | WITH AUTOMATED | | LABORATORY | | | | RESULTS.Comment: Testing | | | | | | performed at [facility] | | | | | | [address];[place], [place] | | | | | | [address] | | | | + + + + + + + + | Specimen | + + | Blood | + + + + + + + | Performing | Address | City/State/Zipcode | Phone Number | | Organization | | | | + + + + + | [facility] | [address] | [place] [address] | [phone] | + + + + + documented in this encounter Visit Diagnoses + + | Diagnosis | + + | Dizziness - Primary Dizziness and giddiness | + + | Fall, initial encounter | + + | Closed head injury, initial encounter | + + | Hyperglycemia Other abnormal glucose | + + | Fall from ground level | + + | Uncontrolled type 2 diabetes mellitus with hyperglycemia ([facility]) | + + | COPD (chronic obstructive pulmonary disease) ([facility]) Chronic airway obstruction, not | | elsewhere classified | + + | KESHAWN (acute kidney injury) ([facility]) Acute kidney failure, unspecified | + + | Chronic anticoagulation Encounter for long-term (current) use of 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 | + + | Developmental delay Unspecified delay in development | + + documented in this encounter Administered Medications + +--------+ +--------+------+------+ | Medication Order | MAR | Action | Dose | Rate | Site | | | Action | Date | | | | + +--------+ +--------+------+------+ | acetaminophen (TYLENOL) tablet | Given | 01/06/20 | 650 mg | | | | 650 mg 650 mg, Oral, EVERY 8 | | 19 1:44 | | | | | HOURS PRN, Pain, Starting Sat | | AM PST | | | | | 01/05/19 at 0140 | | | | | | + +--------+ +--------+------+------+ +---+---+ | | | +---+---+ + +-------+ +------+---+---+ | apixaban (ELIQUIS) tablet 5 mg | Given | 01/06/20 | 5 mg | | | | 5 mg, Oral, 2 TIMES DAILY, First | | 19 8:08 | | | | | dose on Mon01/04/19 at 0945 | | AM PST | | | | + +-------+ +------+---+---+ +-------+ +------+---+---+ | Given | 01/05/20 | 5 mg | | | | | 19 9:44 | | | | | | PM PST | | | | +-------+ +------+---+---+ | Given | 01/05/20 | 5 mg | | | | | 19 10:23 | | | | | | AM PST | | | | +-------+ +------+---+---+ +---+---+ | | | +---+---+ + +-------+ +------+---+---+ | ARIPiprazole (ABILIFY) tablet 5 | Given | 01/06/20 | 5 mg | | | | mg 5 mg, Oral, DAILY, First | | 19 8:08 | | | | | dose on Mon01/04/19 at 0900 | | AM PST | | | | + +-------+ +------+---+---+ +-------+ +------+---+---+ | Given | 01/05/20 | 5 mg | | | | | 19 8:10 | | | | | | AM PST | | | | +-------+ +------+---+---+ +---+---+ | | | +---+---+ + +-------+ +-------+---+---+ | aspirin EC tablet 81 mg 81 mg, | Given | 01/05/20 | 81 mg | | | | Oral, DAILY, First dose on Mon | | 19 8:09 | | | | | 01/04/19 at 0900 | | AM PST | | | | + +-------+ +-------+---+---+ +---+---+ | | | +---+---+ + +-------+ +-------+---+---+ | atorvaSTATin (LIPITOR) tablet | Given | 01/05/20 | 40 mg | | | | 40 mg 40 mg, Oral, NIGHTLY, | | 19 9:44 | | | | | First dose on Mon01/04/19 at | | PM PST | | | | | 0315 | | | | | | + +-------+ +-------+---+---+ +-------+ +-------+---+---+ | Given | 01/05/20 | 40 mg | | | | | 19 3:56 | | | | | | AM PST | | | | +-------+ +-------+---+---+ +---+---+ | | | +---+---+ + +-------+ +---------+---+---+ | budesonide-formoterol | Given | 01/06/20 | 2 puffs | | | | (SYMBICORT) 160-4.5 mcg/puff | | 19 8:07 | | | | | inhaler 2 puff 2 puff, | | AM PST | | | | | Inhalation, 2 TIMES DAILY, First | | | | | | | dose on Mon01/04/19 at 0900, | | | | | | | Shake well. Use with spacer. | | | | | | | Rinse mouth after use., | | | | | | + +-------+ +---------+---+---+ +-------+ +---------+---+---+ | Given | 01/05/20 | 2 puffs | | | | | 19 9:44 | | | | | | PM PST | | | | +-------+ +---------+---+---+ | Given | 01/05/20 | 2 puffs | | | | | 19 8:11 | | | | | | AM PST | | | | +-------+ +---------+---+---+ +---+---+ | | | +---+---+ + +-------+ +---------+---+---+ | carvedilol (COREG) tablet 12.5 | Given | 01/06/20 | 12.5 mg | | | | mg 12.5 mg, Oral, 2 TIMES DAILY | | 19 8:07 | | | | | WITH BREAKFAST & DINNER, First | | AM PST | | | | | dose on Mon01/04/19 at 0800 | | | | | | + +-------+ +---------+---+---+ +-------+ +---------+---+---+ | Given | 01/05/20 | 12.5 mg | | | | | 19 4:44 | | | | | | PM PST | | | | +-------+ +---------+---+---+ | Given | 01/05/20 | 12.5 mg | | | | | 19 8:10 | | | | | | AM PST | | | | +-------+ +---------+---+---+ + +---+ | | | + +---+ | dextrose 10% (D10W) infusion | | | at 50 mL/hr, Intravenous, | | | CONTINUOUS PRN, hypoglycemia, | | | Starting Mon01/04/19 at 0256, | | | Start infusion if unable [...] | | | Low Blood Sugar, Starting Fri | | | 01/04/19 at 0256, For blood | | | glucose 50-69 mg/dl - give 12.5 g | | | For blood glucose less than 50 | | | mg/dl - give 25 g, | | + +---+ | | | + +---+ + +-------+ +------+---+---+ | finasteride (PROSCAR) tablet 5 | Given | 01/06/20 | 5 mg | | | | mg 5 mg, Oral, DAILY, First dose | | 19 8:07 | | | | | on 01/04/19 at 0900, | | AM PST | | | | | Reproductive Risk: Use | | | | | | | appropriate handling | | | | | | | precautions., | | | | | | + +-------+ +------+---+---+ +-------+ +------+---+---+ | Given | 01/05/20 | 5 mg | | | | | 19 8:10 | | | | | | AM PST | | | | +-------+ +------+---+---+ +---+---+ | | | +---+---+ + +-------+ +-------+---+---+ | hydrALAZINE (APRESOLINE) | Given | 01/05/20 | 10 mg | | | | injection 10 mg 10 mg, | | 19 7:48 | | | | | Intravenous, EVERY 4 HOURS PRN, | | PM PST | | | | | For systolic blood pressure more | | | | | | | than 160 mmHg and/or diastolic | | | | | | | blood pressure more than 100 | | | | | | | mmHg., Starting Mon01/04/19 at | | | | | | | 1014 | | | | | | + +-------+ +-------+---+---+ +---+---+ | | | +---+---+ + +-------+ +-------+---+---+ | hydrALAZINE (APRESOLINE) tablet | Given | 01/06/20 | 25 mg | | | | 25 mg 25 mg, Oral, 2 TIMES | | 19 8:07 | | | | | DAILY, First dose on Mon01/04/19 | | AM PST | | | | | at 0945 | | | | | | + +-------+ +-------+---+---+ +-------+ +-------+---+---+ | Given | 01/05/20 | 25 mg | | | | | 19 10:23 | | | | | | AM PST | | | | +-------+ +-------+---+---+ +---+---+ | | | +---+---+ + +-------+ + +---+ + | insulin detemir (LEVEMIR | Given | 01/05/20 | 60 Units | | Abdomen- | | FLEXTOUCH) injection (pen) 60 | | 19 9:45 | | | LUQ | | Units 60 Units, Subcutaneous, | | PM PST | | | | | NIGHTLY, First dose on Fri | | | | | | | 01/04/19 at 0315, For | | | | | | | subcutaneous use only. Basal | | | | | | | (long acting) insulin., If NPO: | | | | | | | Decrease dose, by: 25% | | | | | | + +-------+ + +---+ + +-------+ + +---+ + | Given | 01/05/20 | 60 Units | | Arm-Righ | | | 19 3:56 | | | t Upper | | | AM PST | | | | +-------+ + +---+ + +---+---+ | | | +---+---+ + +-------+ +---------+---+ + | insulin lispro (humaLOG) | Given | 01/06/20 | 2 Units | | Abdomen- | | injection (vial) 0-6 Units 0-6 | | 19 11:11 | | | LLQ | | Units, Subcutaneous, 4 TIMES | | AM PST | | | | | DAILY WITH MEALS & NIGHTLY, First | | | | | | | dose on Mon01/04/19 at 0800, | | | | | [...] | | | | AC, NPO, Daytime [id number] Use | | | | | | | NIGHT DOSE for doses scheduled: | | | | | | | HS, 3AM, Nighttime [id number] | | | | | | | [...] + +-------+ +---------+---+ + | Given | 01/05/20 | 2 Units | | Arm-Left | | | 19 4:45 | | | Upper | | | PM PST | | | | +-------+ +---------+---+ + | Given | 01/05/20 | 2 Units | | Arm-Righ | | | 19 11:56 | | | t Upper | | | AM PST | | | | +-------+ +---------+---+ + +---+---+ | | | +---+---+ + +-------+ + +---+ + | insulin lispro (humaLOG) | Given | 01/06/20 | 10 Units | | Abdomen- | | injection (vial) 10 Units 10 | | 19 11:11 | | | LLQ | | Units, Subcutaneous, 3 TIMES | | AM PST | | | | | DAILY WITH MEALS, First dose on | | | | | | | 01/04/19 at 1200, Only for | | | | | | | use with U-100 insulin syringe., | | | | | | + +-------+ + +---+ + +-------+ + +---+ + | Given | 01/06/20 | 10 Units | | Arm-Righ | | | 19 8:08 | | | t Upper | | | AM PST | | | | +-------+ + +---+ + | Given | 01/05/20 | 10 Units | | Arm-Left | | | 19 4:46 | | | Upper | | | PM PST | | | | +-------+ + +---+ + +---+---+ | | | +---+---+ + +-------+ +---------+---+---+ | insulin regular (humuLIN R, | Given | 01/04/20 | 7 Units | | | | novoLIN R) injection 7 Units 7 | | 19 10:21 | | | | | Units, Intravenous, ONCE, Joselyn | | PM PST | | | | | 01/03/19 at 2200, For 1 dose, | | | | | | | Only for use with U-100 insulin | | | | | | | syringe., | | | | | | + +-------+ +---------+---+---+ +---+---+ | | | +---+---+ + +-------+ +-------+---+---+ | meclizine (ANTIVERT) tablet 25 | Given | 01/04/20 | 25 mg | | | | mg 25 mg, Oral, ONCE, Joselyn | | 19 10:21 | | | | | 01/03/19 at 2205, For 1 dose | | PM PST | | | | + +-------+ +-------+---+---+ +---+---+ | | | +---+---+ + +-------+ +-------+---+---+ | meclizine (ANTIVERT) tablet 25 | Given | 01/06/20 | 25 mg | | | | mg 25 mg, Oral, EVERY 8 HOURS | | 19 8:08 | | | | | PRN, Dizziness, Starting Fri | | AM PST | | | | | 01/04/19 at 0917 | | | | | | + +-------+ +-------+---+---+ +-------+ +-------+---+---+ | Given | 01/05/20 | 25 mg | | | | | 19 4:44 | | | | | | PM PST | | | | +-------+ +-------+---+---+ +---+---+ | | | +---+---+ + +-------+ +-------+---+---+ | NIFEdipine (PROCARDIA XL) ER | Given | 01/06/20 | 60 mg | | | | tablet 60 mg 60 mg, Oral, DAILY, | | 19 8:07 | | | | | First dose on Mon01/04/19 at | | AM PST | | | | | 0945 | | | | | | + +-------+ +-------+---+---+ +-------+ +-------+---+---+ | Given | 01/05/20 | 60 mg | | | | | 19 10:23 | | | | | | AM PST | | | | +-------+ +-------+---+---+ +---+---+ | | | +---+---+ + +---------+ +--------+-------+---+ | sodium chloride 0.9% (NS) bolus | New Bag | 01/04/20 | 1,000 | 1000 | | | 1,000 mL 1,000 mL, Intravenous, | | 19 10:21 | mLs | mL/hr | | | Administer over 1 Hours, ONCE, | | PM PST | | | | | Joselyn 01/03/19 at 2120, For 1 dose | | | | | | + +---------+ +--------+-------+---+ +---+---+ | | | +---+---+ + +---------+ +--------+ +---+ | sodium chloride 0.9% (NS) | New Bag | 01/05/20 | 1,000 | 50 mL/hr | | | infusion at 50 mL/hr, | | 19 3:14 | mLs | | | | Intravenous, CONTINUOUS, Starting | | AM PST | | | | | 01/04/19 at 0315, 500 ml, | | | | | | + +---------+ +--------+ +---+ +---+---+ | | | +---+---+ + +---------+ +---+-------+---+ | sodium chloride 0.9% (NS) | New Bag | 01/06/20 | | 100 | | | infusion at 100 mL/hr, | | 19 1:44 | | mL/hr | | | Intravenous, CONTINUOUS, Starting | | AM PST | | | | | 01/04/19 at 0945 | | | | | | + +---------+ +---+-------+---+ + + +---+-------+---+ | New Bag | 01/05/20 | | 100 | | | | 19 3:35 | | mL/hr | | | | PM PST | | | | + + +---+-------+---+ | Rate/Dose Change | 01/05/20 | | 100 | | | | 19 10:18 | | mL/hr | | | | AM PST | | | | + + +---+-------+---+ +---+---+ | | | +---+---+ + +-------+ +--------+---+---+ | tamsulosin (FLOMAX) capsule 0.4 | Given | 01/06/20 | 0.4 mg | | | | mg 0.4 mg, Oral, 2 TIMES DAILY, | | 19 8:07 | | | | | First dose on 01/04/19 at | | AM PST | | | | | 0900, Do not crush or chew | | [...] +-------+ +--------+---+---+ +-------+ +--------+---+---+ | Given | 01/05/20 | 0.4 mg | | | | | 19 9:44 | | | | | | PM PST | | | | +-------+ +--------+---+---+ | Given | 01/05/20 | 0.4 mg | | | | | 19 8:09 | | | | | | AM PST | | | | +-------+ +--------+---+---+ +---+---+ | | | +---+---+ documented in this encounter
--- OUTSIDE RECORDS SUMMARY | ~2019-10-12 | XMS | Encounter Summary ---
Demographics + + + | Address | [address] | | | [place] [address] | + + + | Home Phone [...] Sammi Kohler | ECON | [place] [address] | | + + + + + Care Team Providers + +------+ + | Care Edge Stainer Machine Name | Role | Phone | + [...] + + | 07/07/ | Telephone | [facility] | Sanjuanita Rodriguez RN | TCM - Hosp FU | | 2020 | | [facility] [facility] | | | | | | [address] | | | | | [address] | | | | | | [place] | | | | | | [address] | | | | | | [phone] | | | +--------+ + + + [...] Miscellaneous Notes Telephone Encounter - Joy Connor, Duty Manager - 07/31/2019 11:20 AM PDTZairaen t received BP wrist cuff this date, is following up with PCP today. elephone Encounter - Joy Connor Medical Assistant - 07/23/2019 11:59 AM PDTContacted patient. [facility] has contacted and will follow up again this week with him Advised patient had found BP wrist cuff, would contact him tomorrow to retrieve it. Encour aged patient to reach out if needing help with BP cuff. elephone Encounter - Joy Connor Medical Assistant - 07/12/2019 12:03 PM PDTMarisela from [facility] called back, states patient h as a case management specialist with them, it is Elizabeth, her number is [phone]. She states she is familiar with patient, [...] brenda kirby Contacted patient, advised him of [facility] referral, he agreed for a referral, he is concerned that a Director Of Pulmonary Unit will cost him, stated on fax that patient has concerns with cost, told h im they would be in touch needing him to complete information. Will follow up next week on referral. LUNA fleming/ Joelle/[facility] to clarify cost concern. Patient was [...] his caregiver is Shannon, she works for [employer], ph# [phone]. She comes in 3x week, from 9-1030. States Shannon does a good job and he would like her to continue being his caregiver. Patient does not want assisted living. Patient is agreeable to a case management specialist, states he tried to get one previously but was unabl e to. He needs assistance with signing up for insurance. Contacted Sarah at [employer], she states they only provide in home care, they do not have case advocate, they do work with [facility] so Shannon could continue as caregiver. Will place referral for [facility]. Did get a BP cuff, unsure of readings. Will test a few times and decide if to forward to bhavin. el glenna Encounter - Sanjuanita Rodriguez RN - 07/08/2019 1:30 PM PDT SITUATION Transitional Care Management for follow-up on discharge from: Inpatient Acute Hospital Eligible for TCM Billing LOS [id number]? yes - Eligible for TCM billing through [...] no Medication Literacy: Were you able to picker feeder your medications after discharge? No: But states [...] up to see if patient has a [employer] e worker or someone who manages his care. Possible for referral to [facility]. RECOMMENDATION Disposition: Appears safe to remain in home setting at this time. Future Appointments Date Time Provider Department Center 07/10/2019 3:00 PM NORM [facility] Technology for Zoom Virtual Visit: [...] | | | | | | [place] [address] | | | | | | [phone] | | | | | | | [...]
--- OUTSIDE RECORDS SUMMARY | ~2019-10-12 | XMS | Encounter Summary ---
Demographics + + + | Address | [address] | | | [place] [address] | + + + | Home Phone | | + + + | Preferred Language | Unknown | + + + | Marital Status | | + + + | Lutheran Affiliation | 1027 | + + + | Race | White | + + + | Ethnic Group | Not or | + + + Author + + + | Author | [facility] | | | and [place] | + + + | Organization | [facility] | | | and [place] | + + + | Address | Unknown | + + + | Phone | Unavailable | + + + Support + + + + + | Name | Relationship | Address | Phone | + + + + + | Sammi Kohler | ECON | [place] [address] | | + + + + + Care Team Providers + +------+ + | Care Water Resource Engineering Specialist Name | Role | Phone | + +------+ + | Mireya Pack NP | PCP | | + +------+ + Reason for Visit + +--------+ + | Reason | Onset | Comments | | | Date | | + +--------+ + | TCM - Hosp FU | 11/22/ | | | | 2018 | | + +--------+ + Encounter Details +--------+ + + + + | Date | Type | Department | Care Team | Description | +--------+ + + + + | 11/22/ | Telephone | [facility] | Ashley Scales, | TCM - Hosp FU | | 2019 | | MANAGER CANCER | RN | | | | | [address] | | | [address] | | | | | | [place] | | | | | | [address] | | | | | | [phone] | | | +--------+ + + + [...] this encounter Miscellaneous Notes Telephone Encounter - Ashley Scales RN - 11/22/2018 2:51 PM PDTSpoke with patient. Ve rified name and date of . Patient states he feels well. His blood sugars are as follows: 220 before bed on 11.21.18 184 this morning on 11.22.18 194 this afternoon on 11.22.18 Confirmed he is taking 45 units insulin detemir nightly Patient states he is having daily bowel movements, having small "pebble like" bowel movemen ts 5-6 times a day. Denies abdominal pain, or blood in stool. Taking miralax as directed. P atient states he sometimes has nausea in the morning when he wakes up and then he eats a sna ck and it goes away. Will call back as needed; verified that patient has office phone number and hours, encour ed to call for any questions or concerns. documented in this encounter Plan of Treatment [...] | | | | | | [place] [address] | | | | | | [phone] | | | | | | | | +--------+ + + + + documented as of this encounter Visit Diagnoses Not on filedocumented in this encounter
--- OUTSIDE RECORDS SUMMARY | ~2019-10-12 | XMS | Encounter Summary ---
Demographics + + + | Address | [address] | | | [place] [address] | + + + | Home Phone [...] + | Sammi Kohler | ECON | [place] [address] | | + + + + + Care Team Providers + +------+ + | Care Digital Forensic Analyst Name | Role | Phone | + +------+ + PCP | Unavailable | + +------+ + Encounter Details +--------+ + + + + | Date | Type | Department | Care Team | Description | +--------+ + + + + | 11/30/ | Emergency | [facility] | Kristian Mae | Hypertension | | 2013 | | [facility] | MD [address] | | | | | [facility] | [place], | | | | | [address] | [place] [address] | | | | | [place], [place] | [phone] | | | | | [address] | | | | | | [phone] | | | +--------+ + + + [...] Notes by Kristian Mae MD at 11/30/13 9080 Author: Kristian Mae MD Service: Emergency Department Author Type: Physician Filed: 11/30/13 1905 Date of Service: 11/30/131348 Status: Signed Plant Engineer: Kristian Mae MD (Physician) [facility] Department of Emergency Medicine 1:49 PM History [...] sx at t his time. No care MANAGER MACHINE was reported. PCP: JERRELL GUTIÉRREZ Past Medical [...] - CHOLECYSTECTOMY; Surgeon: Jevon Vargas DO; Location: [facility] MAIN OR; Service: General; Laterality: N/A; Abdominal surgery Cholecystectomy Skin cancer excision 10/10/2012 Procedure: EXCISION - SKIN CANCER; Surgeon: Sy Fierro MD; Location: [facility] MAIN OR ; Service: Plastics; Laterality: Left; upper arm and upper back w/frozen section Esophagogastroduodenoscopy 03/03/2013 Procedure: ESOPHAGOGASTRODUODENOSCOPY; Surgeon: Howie Gibson MD; Location: [facility] ENDOSCOPY; S ervice: Gastroenterology; Laterality: N/A; Colonoscopy 03/04/2013 Procedure: COLONOSCOPY; Surgeon: Howie Gibson MD; Location: [facility] ENDOSCOPY; Service: Gastroe nterology; Laterality: N/A; Upper gastrointestinal endoscopy Skin biopsy Hernia repair 07/03/2013 Procedure: LAPAROSCOPIC - HERNIA - INCISIONAL; Surgeon: Jevon Vargas DO; Location: [facility] MAIN OR; Service: General; Laterality: [...] into the skin nightly. H istorical Provider kvstdodqz-txtjylgi-sqqeirbwh hydroxide-simethicone Take 40 mLs by mouth daily [...] sore throat CV/Resp: Negative for chest pain, zjduzgqil-kr-pvzkil, cough GI: Positive for nausea Negative for [...] Value Ref Range Date/Time Comprehensive metabolic panel [[id number]] (Abnormal) Collected: 11/30/13 1417 Order Status: Completed Updated: 11/30/13 7513 Specimen Information: Blood SODIUM 140 135 - [...] EGFR >60 >60 mL/min/1.73m2 POC cardiac troponin [[id number]] Collected: 11/30/13 1420 Order Status: Completed Updated: 11/30/13 1507 POC CARDIAC TROPONIN 0.00 0.00 - 0.10 ng/mL CBC W/Auto Diff (Reflex to Manual) [[id number]] (Abnormal) Collected: 11/30/13 1450 Order Status: Completed [...] 1406 Rhythm: Sinus tachycardia Ventricular Rate: 103 PA Interval: Normal ST Segments: Normal Significant Q-waves: None Blocks: L posterior fasicular block [place]: Dramatic axis shift Additional Comments: None EKG Interpretation 1522 Rhythm: Sinus Tachycardia, infrequent PACs Ventricular Rate: 103 PA Interval: Normal ST Segments: Normal Significant Q-waves: None Blocks: None [place]: Normal Additional Comments: QT interval is mildly prolonged nonspecific T wave abnormalities diffusely. Compared to EKG on 11/29/13 Imaging Results None ED Diagnosis Final diagnosis Hypertension, improved Disposition: ED Disposition Discharge Condition at discharge: Stable Follow-up Information Follow up With Details Comments Contact Info Jerrell Gutiérrez DO [address] [facility] [address] [facility] Emergency Department If symptoms worsen [address] [facility] [address] Jerrell Gutiérrez DO In 3 days [address] [facility] [address] Discharge Medications: Discharge Medication List as of [...] its contents. MD Kristian Silverman MD 11/30/13 3246 onversion Merchant saction, Provider Unknown - 11/30/2013 1:40 PM PDTFormatting of this note might be differen t from the original. ED Notes by Yamileth Harvey RN at 11/30/13 1340 Author: Yamileth Harvey RN Service: (none) Author Type: Registered Nurse Filed: 11/30/13 1814 Date of Service: 11/30/13 1340 Status: Signed Plant Engineer: Yamileth Harvey RN (Registered Nurse) Per [facility]: pt resident [facility]. Seen in ED yesterday with HTN about 200/10 0 for 2 days. Pt now taking clonidine patch, but still hypertensive, today c/o h/a. Denies C P, SOB or other sx. Yamileth Harvey RN 11/30/13 1342 onver ivana Transaction, Provider Unknown - 11/30/2013 1:40 PM PDT ED Notes by Tona Vick RN at 11/30/131339 Author: Tona Vick RN Service: (none) Author Type: Registered Nurse Filed: 11/30/131339 Date of Service: 11/30/131339 Status: Signed Plant Engineer: Tona Vick RN (Registered Nurse) Bed: [address] [...] [place], | | | | | | [place] [address] | | | | | | [phone] | | | | | | | [...] | | | | | ONLY, -COMPUTER ([id number]), | | | | | | managing editor Leanna Cheng | | | | | | (29) on 12/01/2013 | | | | | | 7:17:37 AM | | | | + + + + + + + + | Specimen | + + | | + + + + + | Narrative | Performed At | + + + | Historically converted procedure from [facility] Epic environment | EXTERNAL LAB | [...] EXTERNAL | | | | performed at [facility];[address] | | LAB | | | | [address];[place], [place] | | | | | | [address] | | | | + + + + + + | Non- | 5.22Comment: Testing | 4.20 - 5.70 | EXTERNAL | | | Red Blood | performed at [facility];[address] | M/uL | LAB | | | Cells | [address];[place] | | | | | Counted | [address] | | | | + + + + + + | Hemoglobin | 13.6Comment: Testing | 13.2 - 17.0 | EXTERNAL | | | | performed at [facility];[address] | g/dL | LAB | | | | [address];[place] | | | | | | [address] | | | | + + + + + + | Hematocrit, | 41.9Comment: Testing | 39.0 - 50.0 % | EXTERNAL | | | POC | performed at [facility];[address] | | LAB | | | | [address];[place] | | | | | | [address] | | | | + + + + + + | MCV | 80.3Comment: Testing | 80.0 - 100.0 fl | EXTERNAL | | | | performed at [facility];[address] | | LAB | | | | [address];[place] | | | | | | [address] | | | | + + + + + + | MCH | 26.1 (L)Comment: Testing | 27.0 - 34.0 pg | EXTERNAL | | | | performed at [facility];[address] | | LAB | | | | [address];[place] | | | | | | [address] | | | | + + + + + + | MCHC | 32.5Comment: Testing | 32.0 - 35.5 | EXTERNAL | | | | performed at [facility];[address] | g/dL | LAB | | | | [address];[place] | | | | | | [address] | | | | + + + + + + | RDW-CV | 41.1Comment: Testing | 37 - 53 fl | EXTERNAL | | | | performed at [facility];[address] | | LAB | | | | [address];[place] | | | | | | [address] | | | | + + + + + + | Platelet | 288Comment: Testing | 150 - 400 K/uL | EXTERNAL | | | Count | performed at [facility];[address] | | LAB | | | Plasma | [address];[place] | | | | | | [address] | | | | + + + + + + | MPV | 7.5Comment: Testing | fl | EXTERNAL | | | | performed at [facility];[address] | | LAB | | | | [address];[place] | | | | | | [address] | | | | + + + + + + | Differentia | AUTOMATEDComment: | | EXTERNAL | | | l Type | Testing performed at | | LAB | | | | [facility];[address];[place] [address] | | | | + + + + + + | % Segmented | 67.6Comment: Testing | % | EXTERNAL | | | | performed at [facility];[address] | | LAB | | | Neutrophils | [address];[place] | | | | | | [address] | | | | + + + + + + | % | 21.8Comment: Testing | % | EXTERNAL | | | Lymphocytes | performed at [facility];[address] | | LAB | | | | [address];[place] | | | | | | [address] | | | | + + + + + + | % Monocytes | 9.2Comment: Testing | % | EXTERNAL | | | | performed at [facility];[address] | | LAB | | | | [address];[place] | | | | | | [address] | | | | + + + + + + | % | 0.5Comment: Testing | % | EXTERNAL | | | Eosinophils | performed at [facility];[address] | | LAB | | | | [address];[place] | | | | | | [address] | | | | + + + + + + | % Basophils | 0.9Comment: Testing | % | EXTERNAL | | | | performed at [facility];[address] | | LAB | | | | [address];[place] | | | | | | [address] | | | | + + + + + + | Absolute | 6.8Comment: Testing | 1.9 - 7.4 K/uL | EXTERNAL | | | Segmented | performed at [facility];[address] | | LAB | | | Neutrophils | [address];[place] | | | | | | [address] | | | | + + + + + + | Absolute | 2.2Comment: Testing | 1.0 - 3.9 K/uL | EXTERNAL | | | Lymphocytes | performed at [facility];[address] | | LAB | | | | [address];[place] | | | | | | [address] | | | | + + + + + + | Absolute | 0.9 (H)Comment: Testing | 0 - 0.8 K/uL | EXTERNAL | | | Monocytes | performed at [facility];[address] | | LAB | | | | [address];[place] | | | | | | [address] | | | | + + + + + + | Absolute | 0.1Comment: Testing | 0 - 0.5 K/uL | EXTERNAL | | | Eosinophils | performed at [facility];[address] | | LAB | | | | [address];[place] | | | | | | [address] | | | | + + + + + + | Absolute | 0.1Comment: Testing | 0 - 0.1 K/uL | EXTERNAL | | | Basophils | performed at [facility];[address] | | LAB | | | | [address];[place] | | | | | | [address] | | | | + + + [...] EXTERNAL | | | | performed at [facility] | | LAB | | | | [address];[place], [place] | | | | | | [address] | | | | + + + [...] EXTERNAL | | | | performed at [facility];[address] | mmol/L | LAB | | | | [address];[place] | | | | | | [address] | | | | + + + + + + | K | 3.8Comment: SLT | 3.5 - 4.9 | EXTERNAL | | | | HEMOLYSISTesting | mmol/L | LAB | | | | performed at [facility];[address] | | | | | | [address];[place] | | | | | | [address] | | | | + + + + + + | Cl | 107Comment: Testing | 99 - 109 mmol/L | EXTERNAL | | | | performed at [facility];[address] | | LAB | | | | [address];[place] | | | | | | [address] | | | | + + + + + + | CO2 | 25Comment: Testing | 23 - 32 mmol/L | EXTERNAL | | | | performed at [facility];[address] | | LAB | | | | [address];[place] | | | | | | [address] | | | | + + + + + + | Anion Gap | 12Comment: Testing | 5 - 20 mmol/L | EXTERNAL | | | | performed at [facility];[address] | | LAB | | | | [address];[place] | | | | | | [address] | | | | + + + + + + | Glucose, | 266 (H)Comment: Testing | 65 - 99 mg/dL | EXTERNAL | | | Fasting | performed at [facility];[address] | | LAB | | | | [address];[place] | | | | | | [address] | | | | + + + + + + | BUN | 15Comment: Testing | 8 - 25 mg/dL | EXTERNAL | | | | performed at [facility];[address] | | LAB | | | | [address];[place] | | | | | | [address] | | | | + + + + + + | Creatinine | 1.19Comment: Testing | 0.70 - 1.30 | EXTERNAL | | | | performed at [facility];[address] | mg/dL | LAB | | | | [address];[place] | | | | | | [address] | | | | + + + + + + | BUN/Creatin | 12Comment: Testing | | EXTERNAL | | | ine Ratio | performed at [facility];[address] | | LAB | | | | [address];[place] | | | | | | [address] | | | | + + + + + + | Calcium | 9.2Comment: Testing | 8.5 - 10.2 | EXTERNAL | | | | performed at [facility];[address] | mg/dL | LAB | | | | [address];[place] | | | | | | [address] | | | | + + + + + + | Protein, | 7.3Comment: Testing | 6.3 - 8.2 g/dL | EXTERNAL | | | Total | performed at [facility];[address] | | LAB | | | | [address];[place] | | | | | | [address] | | | | + + + + + + | Albumin | 3.5 (L)Comment: Testing | 3.6 - 5.0 g/dL | EXTERNAL | | | | performed at [facility];[address] | | LAB | | | | [address];[place] | | | | | | [address] | | | | + + + + + + | Globulin | 3.8Comment: Testing | 1.3 - 4.9 g/dL | EXTERNAL | | | | performed at [facility];[address] | | LAB | | | | [address];[place] | | | | | | [address] | | | | + + + + + + | A/G Ratio | 0.9 (L)Comment: Testing | 1.0 - 2.4 | EXTERNAL | | | | performed at [facility];[address] | | LAB | | | | [address];[place] | | | | | | [address] | | | | + + + + + + | Bilirubin | 0.3Comment: Testing | 0.1 - 1.5 mg/dL | EXTERNAL | | | Total | performed at [facility];[address] | | LAB | | | | [address];[place] | | | | | | [address] | | | | + + + + + + | ALP, | 117 (H)Comment: Testing | 35 - 115 U/L | EXTERNAL | | | External | performed at [facility];[address] | | LAB | | | | [address];[place] | | | | | | [address] | | | | + + + + + + | AST | 30Comment: SLT | 10 - 45 U/L | EXTERNAL | | | | HEMOLYSISTesting | | LAB | | | | performed at [facility];[address] | | | | | | [address];[place] | | | | | | [address] | | | | + + + + + + | ALT | 29Comment: Testing | 10 - 65 U/L | EXTERNAL | | | | performed at [facility];[address] | | LAB | | | | [address];[place] | | | | | | [address] | | | | + + + [...] | | | | | | at [facility];[address];[place] [address] | | | | + + + [...] | | | | | ONLY, -COMPUTER (683), | | | | | | managing editor Anshu Soliz | | | | [...]
--- OUTSIDE RECORDS SUMMARY | ~2019-10-12 | XMS | Encounter Summary ---
Demographics + + + | Address | [address] | | | [place] [address] | + + + | Home Phone [...] + | Sammi Kohler | ECON | [place] [address] | | + + + + + Care Team Providers + +------+ + | Care Animal Anatomist Name | Role | Phone | + +------+ + PCP | Unavailable | + +------+ + Encounter Details +--------+ + + + + | Date | Type | Department | Care Team | Description | +--------+ + + + + | 01/18/ | Emergency | [facility] | Breanne Hurtado, | Abdominal pain, LUQ; | | 2014 - | | [facility] | DO [address] | Gastritis; Swelling | | | | EMERGENCY CENTER | [place] [address] | of left lower | | 01/19/ | | [address] | [phone] | extremity | | 2013 | | [place], [place] | | | | | | [address] | | | | | | [phone] | | | +--------+ + + + [...] ED Notes Conversion Transaction, Provider Unknown - 01/18/2014 9:45 PM PSTFormatting of this note m ight be different from the original. ED Notes by Shree Reilly RN at 01/18/142144 Author: Shree Reilly RN Service: (none) Author Type: Registered Nurse Filed: 01/18/142145 Date of Service: 01/18/142144 Status: Signed Resource Program Teacher: Shree Reilly RN (Registered Nurse) Road Test: Pt ambulated well in stevens. Pt pulse steady at 100bpm. O2 sat down to 87% while ambulating. Shree Reilly RN 01/18/142145 oBreanne booth DO - 01/18/2014 6:48 PM PSTFormatting of this note might be different from the o riginal. ED Provider Notes by Breanne Hurtado DO at 01/18/141847 Author: Breanne Hurtado DO Service: Emergency Department Author Type: Physician Filed: 01/20/142045 Date of Service: 01/18/141847 Status: Signed Resource Program Teacher: Breanne Hurtado DO (Physician) [facility] Department of Emergency Medicine 6:49 PM History of Present Illness Patient Identification Norah Gr is a 58 y.o. male. Patient information was obtained from patient. History/Exam limitations: Moderate MRSalty Patient presented to the Emergency Department by: Car Chief Complaint Chief Complaint Patient presents with Chest Pain 58 y.o. male with history of developmental delay, diabetes, and recurrent chest pain presen ts to the ED complaining of chest pain, but is pointing to his epigastrium. Onset of symptom s was 4:00 PM, with a constant course since that time. The pt states he was laying on the co uch when his pain onset. The patient describes his "chest pain" as pressure. The pt states he resides at [facility] and his friend drove him to the emergency department. The patie nt also complains of nausea, hspnqqasi-kn-qnmxbk, back pain (chronic), and L pain and swelli ng that onset at the time of his "chest pain". Patient denies bloody stools or black stools. Care prior to arrival consisted of "an anxiety pill and a pain pill", with minimal relief. Echo from May 2013 was unremarkable with an EF > 70% Sept 7: CT chest PE protocol normal Pt's presents to ED 01/09/2014 ad complaining of upper abdominal pain. EX that sowed consti pation and was sent home with Go lightly. 01/10/2014 CT showed sings of constipation the the pt was discharged home. 01/13/2014 pt presented to the ED with complaints of fall. Pt was complaining of back pain before the incident that was worsening. Possible compression fracture of the L1 vertebral marcus dy. Imaging studies that pt has had recently included: Coronary angiograph 10/20 which was lisa al (pt's senior civil engineer is Dr. Sterling) PCP: JERRELL GUTIÉRREZ Past Medical History Diagnosis [...] lungs as needed. 108 mcg/act Historical Provider Mwogp-T-Ruxjdselccmvq (BEANO) TABS Take 150 Units by mouth [...] daily. 180 mg at hs 11/30/13 11/30/14 [facility] carlyn Mae MD docusate sodium (COLACE) [...] 100 mg by mouth nightly. Historical Provider iiusypmhk-bmnfmrtx-smprsuetq hydroxide-simethicone Take 40 mLs by mouth daily [...] file Social History Narrative Lives in senior living, [facility], full code Family History Problem Relation Age of Onset Heart disease Father Heart disease Sister Diabetes type II Sister Heart Problems Brother Review of Systems Constitutional: Negative for fever, chills Negative for fatigue Negative for decreased appetite Eyes: Negative for vision changes or photophobia Nose: Negative for congestion, nose bleeds or rhinorrhea Throat: Negative for sore throat or swelling CV/Resp: Positive for chest pain (epigastric pain) Positive for jgbacczzg-cv-zcmidd Negative for cough GI: Negative for abdominal pain Positive for nausea Negative for vomiting Negative for constipation Negative for diarrhea : Negative for urinary frequency Negative for pain with urination Musculoskeletal: Positive for L leg pain and swelling Positive for back pain (chronic) Negative for joint pain Negative for neck pain or stiffness. Skin: Negative for rash Neuro/Psych: Negative for headache Negative for focal weakness or numbness All other systems reviewed and negative except as noted. Physical Exam BP 146/67 | Pulse 95 | Temp(Src) 99.6 F (37.6 C) (Temporal) | Resp 16 | Wt 100.9 kg (22 2 lb 7.1 oz) | SpO2 96% Vital signs interpretation: Hypertensive, otherwise WNL Pulse Oximetry interpretation: Normal General: Alert, in no apparent distress Eyes: Normal inspection, pupils equal and round, non-icteric, EOM's intact ENT: Ears normal Nose normal Pharynx normal, mucous membranes are moist. Neck: Normal inspection Supple, no lymphadenopathy Non-tender to palpation. No masses. Cardiovascular: Rate and rhythm normal No clicks or rubs 3/6 systolic murmer Heart sounds are easily auscultated Chest non-tender to palpation No JVD Respiratory: Breath sounds normal bilaterally No rales, wheezing or rhonchi Abdomen: Soft, tenderness to epigastrium, non-distended No guarding or rebound No masses. No pulsatile masses. Back: Normal inspection, no CVA tenderness or spinal tenderness Skin: Color normal Warm and dry No rash Extremities: No palpable cords. LLE is 2cm larger in circumference 2+ pitting edema to LLE Tenderness to calf Good pulses and perfusion Neuro: Alert, no AMS, speech is clear. No gross motor/sensory deficits Medical Decision Making and Emergency Department Course ED Department Course Patient presents to ED with complaints of chest pain, nausea, shortness of breath, and L le g swelling. He does have COPD but exam not c/w exacerbation. Will need to eval for PE if no other findings to suggest a alternate dx. Will perform basic screening for ACS however rec ent cath so I think this is unlikely. He is tender over his epigastrum so will treat as if PUD in the meantime. Will order US of LLE, acute abdominal series, CMP, lipase, troponin, lactic acid, CBC with diff, and reevaluate the patient. Patient is stable at this time. Medications pantoprazole (PROTONIX) injection 40 mg (40 mg Intravenous Given 01/18/142102) lidocaine (XYLOCAINE) 2 % 10 mL, aluminum-magnesium hydroxide-simethicone (MAALOX) 200-200- 20 MG/5ML 30 mL solution (40 mLs Oral Given 01/18/142102) ondansetron (ZOFRAN) injection 4 mg (4 mg Intravenous Given 01/18/142102) sodium chloride (bolus) 0.9 % 500 mL (500 mLs Intravenous New Bag 01/18/142299) iopamidol (ISOVUE-370) 76 % injection 100 mL (100 mLs Intravenous Given 01/18/142242) 9:08 PM Updated pt on resulted labs and imaging. The pt is stable and resting comfortably a t this time. 9:20 PM Addressed [facility]. Discussed with pt about plan for road test before discha rge home. Pt understands and agrees with this plan. All questions and concerns addressed. 10:00 PM Per nurse: pt's Sp02 dropped to 87% on road test and his HR did not exceed 100. Wi ll order d-dimer. 10:18 PM Rechecked pt. The pt is dressed and sitting up in bed. I advised the pt about his road test results and plan to await d-dimer results. Pt understands and agrees with this. Pt's d-dimer is 0.68, will order CT PE protocol. 10:30 PM Rechecked pt. Discussed with pt about d-dimer results and my recommendation for a CT. The pt understands and agrees with this. Pt's CT is normal. Will discharge home. Discharge Patient is stable and feeling better at this time. I discussed all ED results and my clinic al impression with the patient. Patient is ready for discharge after road test is done. I ad vised patient to follow up with a PCP and we discussed the emergent signs and symptoms that would necessitate a return to ED. The patient understands and agrees with the plan. All ques tions and concerns addressed. The patient agrees to return to the ED immediately if any prob lems or concerns. Records Reviewed Old medical records. Nursing notes. Refer to [facility] Nursing notes. Nursing notes reviewed for chief complaint, medications, clinical presentati on and vital signs. Old ED records reviewed (Using the electronic record system of [facility], I car efully reviewed the records with regard to the past medical/surgical history, previous medic ations, and allergies). Laboratory Evaluation Results Procedure Component Value Ref Range Date/Time D Dimer,Quantitative [[id number]] (Abnormal) Collected: 01/18/141928 Order Status: Completed Updated: 01/18/142214 D DIMER, QUANTITATIVE 0.62 (H) 0.19 - 0.50 mg/L [facility] Comprehensive metabolic panel [[id number]] (Abnormal) Collected: 01/18/141928 Order Status: Completed Updated: 01/18/142042 Specimen Information: Blood SODIUM 140 135 - 143 mmol/L POTASSIUM 4.3 3.5 - 4.9 mmol/L CHLORIDE 104 99 - 109 mmol/L CO2 29 23 - 32 mmol/L ANION GAP AGAP 11 5 - 20 mmol/L GLUCOSE 215 (H) 65 - 99 mg/dL BUN 18 8 - 25 mg/dL CREATININE 1.34 (H) 0.70 - 1.30 mg/dL BUN/CREAT 14 CALCIUM 8.9 8.5 - 10.2 mg/dL TOTAL PROTEIN 7.3 6.3 - 8.2 g/dL Albumin 3.4 (L) 3.6 - 5.0 g/dL GLOBULIN 3.9 1.3 - 4.9 g/dL A/G 0.9 (L) 1.0 - 2.4 TBIL 0.1 0.1 - 1.5 mg/dL ALK PHOS 86 35 - 115 U/L AST 20 10 - 45 U/L ALT 27 10 - 65 U/L EGFR 58 (L) >60 mL/min/1.73m2 Lipase [[id number]] Collected: 01/18/141928 Order Status: Completed Updated: 01/18/142042 Specimen Information: Blood LIPASE 127 73 - 393 U/L Troponin I, Lab [[id number]] Collected: 01/18/141928 Order Status: Completed Updated: 01/18/142042 Specimen Information: Blood TROPONIN I <0.020 0.00 - 0.10 ng/mL Lactic acid [[id number]] Collected: 01/18/141928 Order Status: Completed Updated: 01/18/142042 Specimen Information: Blood LACTIC ACID 1.1 0.4 - 2.0 mmol/L CBC with differential [[id number]] (Abnormal) Collected: 01/18/141928 Order Status: Completed Updated: 01/18/142024 Specimen Information: Blood WBC 9.7 3.8 - 11.0 K/uL RBC 4.69 4.20 - 5.70 M/uL HGB 12.4 (L) 13.2 - 17.0 g/dL HCT 37.6 (L) 39.0 - 50.0 % MCV 80.3 80.0 - 100.0 fl MCH 26.5 (L) 27.0 - 34.0 pg MCHC 33.0 32.0 - 35.5 g/dL RDW SD 42.4 37 - 53 fl PLT 243 150 - 400 K/uL MPV 8.0 fl DIFF TYPE AUTOMATED NEUTROPHILS 68.3 % LYMPHOCYTES 21.1 % MONOCYTES 8.6 % EOSINOPHILS 1.4 % BASOPHILS 0.6 % NEUTROPHILS ABS 6.6 1.9 - 7.4 K/uL LYMPHOCYTES ABS 2.1 1.0 - 3.9 K/uL MONOCYTES ABS 0.8 0 - 0.8 K/uL EOSINOPHILS ABS 0.1 0 - 0.5 K/uL BASOPHILS ABS 0.1 0 - 0.1 K/uL I personally reviewed the lab results and they have been posted to the chart. Pertinent po sitive and negative findings have been addressed appropriately. Radiology and EKG Evaluation Imaging Results CT Chest PE Protocol (Final result) Result time: 01/18/14 23:38:02 Preliminary result by Rad Results In Richard (01/18/14 23:38:02) Impression: Stable exam. No acute findings. No evidence for pulmonary emboli. No pulmonary emboli. RADIA Read by Enriqueta Hdz MD on Jan 18 2014 11:38PM Final result by Rad Results In Richard (01/18/14 23:37:58) Impression: Stable exam. No acute findings. No evidence for pulmonary emboli. No pulmonary emboli. RADIA Electronically signed by Enriqueta Hdz MD on Jan 18 2014 11:37PM Referring Provider Line: [phone] ID: [id number] Narrative: EXAM: CT ANGIOGRAM CHEST EXAM DATE: 01/18/2014 10:49 PM. CLINICAL HISTORY: Shortness of breath, chest pain, elevated d-dimer COMPARISON: Chest CT 10/13/2013. TECHNIQUE: Routine helical imaging was performed through the chest in the pulmonary arteria l phase. IV Contrast: 78 mL Isovue 370. Reconstructions: Coronal 3-D MIP reconstructions. Sa gittal and coronal reconstructions FINDINGS: Pulmonary Arteries: Technically adequate for evaluation through the segmental arteries. No evidence for acute or chronic pulmonary emboli. Lungs/Pleura: No consolidation, nodules, or edema. No effusions or pneumothorax. Mediastinum: Mild pericardial reaction could be small pericardial effusion, unchanged. No c ardiac enlargement or adenopathy. No aortic dissection or aneurysm. Upper Abdomen: Unremarkable. US Lower Extremity- Venous Left (Final result) Result time: 01/18/14 20:18:36 Final result by Rad Results In Richard (01/18/14 20:18:36) Impression: 1. No evidence of lower extremity deep vein thrombosis. Narrative: HISTORY: Leg pain and swelling. TECHNIQUE: Left lower extremity venous Doppler performed with color Doppler and spectral Doppler wavef orm analysis. FINDINGS: Normal compressibility, augmentation of flow, and Doppler flow evident within the deep veno us system. No evidence of deep venous thrombosis. Acute Abdominal Series (Final result) Result time: 01/18/14 21:27:35 Final result by Rad Results In Richard (01/18/14 21:27:35) Impression: 1. No acute cardiopulmonary process. 2. Nonobstructive bowel gas pattern. 3. Moderate amount of stool within the colon. Narrative: NORAH GR XR ABDOMEN ACUTE SERIES HISTORY: 58 years. Male. Abdominal pain. TECHNIQUE: Single frontal view the chest with upright and supine anterior views of the abdomen. COMPARISON: 01/10/2004 FINDINGS: The heart is normal in size. No pulmonary vascular congestion. No pneumothorax. No focal ai rspace disease or pleural effusion. Nonobstructive bowel gas pattern. No free intraperitoneal air. Surgical clips right upper q uadrant from prior cholecystectomy. Moderate amount of stool within the right side of the co teofilo. Mild bilateral acetabular protrusio. EKG performed at 1822 Normal Sinus Rhythm 93bpm. 2 PVC's T wave flattening in the inferior and lateral precordial leads Normal axis Intervals normal No significant ST-T segment abnormalities No acute ischemia. Compared EKG on 12/22/2013 is unchanged. Significant amount of artifact on prior EKG. In comparison to 12/15/2013 EKG is unchanged. Interpreted by by me at time of service ED Diagnoses Final diagnoses Abdominal pain, LUQ Gastritis Swelling of left lower extremity Disposition: ED Disposition Discharge Follow-up Information Follow up With Details Comments Contact Info Jerrell Gutiérrez DO Schedule an appointment as soon as possible for a visit in 2 days For recheck [address] [facility] [address] [facility] Emergency Department If symptoms worsen [address] [facility] [address] Discharge Medications: Discharge Medication List as of 01/19/2014 12:33 AM Procedures Additional Documentation Procedures Attending Note: Documentation assistance provided by Ivy Montoya (Scribe). Information recorded by the scribe has been reviewed and validated by me. Troy laughlin with its contents. DO Breanne Marques DO 01/20/142045 documented in this e ncounter Plan of Treatment +--------+ + + + + | Date | Type | Specialty | Care Team | Description | +--------+ + + + + | 10/16/ | Anti-coag | Anticoagulation | Brittany Zaragoza | | | 2019 | visit | | [address] | | | | | | [address], | | | | | | [place] [address] | | | | | | [phone] | | | | | | | | +--------+ + + + + documented as of this encounter Procedures + +--------+ + + + | Procedure Name | Priori | Date/Time | Associated Diagnosis | Comments | | | ty | | | | + +--------+ + + + | CT ANGIOGRAM | Routin | 01/18/2014 | | Results for this | | PULMONARY | e | 10:49 PM | | procedure are in the | | | | PST | | results section. | + +--------+ + + + | ART DPLX ARM UNILAT | Routin | 01/18/2014 | | Results for this | | RIGHT | e | 8:14 PM | | procedure are in the | | | | PST | | results section. | + +--------+ + + + | XR ABDOMEN AP | Routin | 01/18/2014 | | Results for this | | UPRIGHT KUB AND PA | e | 7:51 PM | | procedure are in the | | CHEST | | PST | | results section. | + +--------+ + + + | EXTERNAL LAB: CBC | Routin | 01/18/2014 | | Results for this | | | e | 7:29 PM | | procedure are in the | | | | PST | | results section. | + +--------+ + + + | TROPONIN I | Routin | 01/18/2014 | | Results for this | | | e | 7:29 PM | | procedure are in the | | | | PST | | results section. | + +--------+ + + + | D-DIMER | Routin | 01/18/2014 | | Results for this | | | e | 7:29 PM | | procedure are in the | | | | PST | | results section. | + +--------+ + + + | LIPASE | Routin | 01/18/2014 | | Results for this | | | e | 7:29 PM | | procedure are in the | | | | PST | | results section. | + +--------+ + + + | LACTIC ACID | Routin | 01/18/2014 | | Results for this | | | e | 7:29 PM | | procedure are in the | | | | PST | | results section. | + +--------+ + + + | COMPREHENSIVE | Routin | 01/18/2014 | | Results for this | | METABOLIC PANEL | e | 7:29 PM | | procedure are in the | | | | PST | | results section. | + +--------+ + + + | ECG 12 LEAD | Routin | 01/18/2014 | | Results for this | | | e | 6:22 PM | | procedure are in the | | | | PST | | results section. | + +--------+ + + + documented in this encounter Results CT Angiogram Pulmonary w Contrast (01/18/2014 10:49 PM PST) + + | Specimen | + + | | + + + + + | Impressions | Performed At | + + + | Stable exam. No acute findings. No evidence for pulmonary emboli. No | | | pulmonary emboli. RADIA Electronically signed by Enriqueta | | | MD Wilder on Jan 18 2014 11:37PM Referring Provider Line: | | | [phone] ID: [id number] | | + + + + + + | Narrative | Performed At | + + + | EXAM: CT ANGIOGRAM CHEST EXAM DATE: 01/18/2014 10:49 PM. | | | CLINICAL HISTORY: Shortness of breath, chest pain, elevated d-dimer | | | COMPARISON: Chest CT 10/13/2013. TECHNIQUE: Routine helical | | | imaging was performed through the chest in the pulmonary arterial | | | phase. IV Contrast: 78 mL Isovue 370. Reconstructions: Coronal 3-D MIP | | | reconstructions. Sagittal and coronal reconstructions FINDINGS: | | | Pulmonary Arteries: Technically adequate for evaluation through the | | | segmental arteries. No evidence for acute or chronic pulmonary emboli. | | | Lungs/Pleura: No consolidation, nodules, or edema. No effusions | | | or pneumothorax. Mediastinum: Mild pericardial reaction could be | | | small pericardial effusion, unchanged. No cardiac enlargement or | | | adenopathy. No aortic dissection or aneurysm. Upper Abdomen: | | | Unremarkable. | | + + + + + | Procedure Note | + + | Richard, Rad Conversion - 09/21/2018 3:31 PM PDT EXAM:CT ANGIOGRAM CHEST EXAM DATE: | | 01/18/2014 10:49 PM. CLINICAL HISTORY: Shortness of breath, chest pain, elevated d-dimer | | COMPARISON: Chest CT 10/13/2013. TECHNIQUE: Routine helical imaging was performed | | through the chest in the pulmonary arterial phase. IV Contrast: 78 mL Isovue 370. | | Reconstructions: Coronal 3-D MIP reconstructions. Sagittal and coronal reconstructions | | FINDINGS:Pulmonary Arteries: Technically adequate for evaluation through the segmental | | arteries. No evidence for acute or chronic pulmonary emboli. Lungs/Pleura: No | | consolidation, nodules, or edema. No effusions or pneumothorax. Mediastinum: Mild | | pericardial reaction could be small pericardial effusion, unchanged. No cardiac | | enlargement or adenopathy. No aortic dissection or aneurysm. Upper Abdomen: | | Unremarkable. IMPRESSION: Stable exam. No acute findings. No evidence for pulmonary | | emboli. No pulmonary emboli. RADIA Electronically signed by Enriqueta Hdz MD on Jan 18 | | 2013 11:37PM Referring Provider Line: [phone] ID: [id number] | | | |Lungs/Pleura: No consolidation, nodules, or edema. No effusions or pneumothorax. | | | |Mediastinum: Mild pericardial reaction could be small pericardial effusion, unchanged. No c ardiac enlargement or adenopathy. No aortic dissection or aneurysm. | | | |Upper Abdomen: Unremarkable. | | | |IMPRESSION: | |Stable exam. No acute findings. No evidence for pulmonary emboli. No pulmonary emboli. | | | |RADIA | | | | Electronically signed by Enriqueta Hdz MD on Jan 18 2014 11:37PM Referring Provider Line: [phone] ID: [id number] | + + VENOUS DPLX OR VEIN MAPPING UNI (01/18/2014 8:14 PM PST) + + | Specimen | + + | | + + + + + | Impressions | Performed At | + + + | 1. No evidence of lower extremity deep vein thrombosis. | | | | | + + + + + + | Narrative | Performed At | + + + | HISTORY: Leg pain and swelling. TECHNIQUE: Left lower | | | extremity venous Doppler performed with color Doppler and spectral | | | Doppler waveform analysis. FINDINGS: Normal compressibility, | | | augmentation of flow, and Doppler flow evident within the deep venous | | | system. No evidence of deep venous thrombosis. | | + + + + + | Procedure Note | + + | Joaquin Ramos Conversion - 09/21/2018 3:31 PM PDT HISTORY:Leg pain and swelling. | | TECHNIQUE:Left lower extremity venous Doppler performed with color Doppler and spectral | | Doppler waveform analysis. FINDINGS:Normal compressibility, augmentation of flow, and | | Doppler flow evident within the deep venous system. No evidence of deep venous | | thrombosis. IMPRESSION: 1. No evidence of lower extremity deep vein thrombosis. | | | |FINDINGS: | |Normal compressibility, augmentation of flow, and Doppler flow evident within the deep veno us system. No evidence of deep venous thrombosis. | | | |IMPRESSION: | |1. No evidence of lower extremity deep vein thrombosis. | | | | | + + XR Abd Supine and Upright w 1 Vw Chest (01/18/2014 7:51 PM PST) + + | Specimen | + + | | + + + + + | Impressions | Performed At | + + + | 1. No acute cardiopulmonary process. 2. Nonobstructive bowel | | | gas pattern. 3. Moderate amount of stool within the colon. | | | | | + + + + + + | Narrative | Performed At | + + + | NORAH GR XR ABDOMEN ACUTE SERIES HISTORY: 58 years. Male. | | | Abdominal pain. TECHNIQUE: Single frontal view the chest with | | | upright and supine anterior views of the abdomen. COMPARISON: | | | 01/10/2004 FINDINGS: The heart is normal in size. No pulmonary | | | vascular congestion. No pneumothorax. No focal airspace disease or | | | pleural effusion. Nonobstructive bowel gas pattern. No free | | | intraperitoneal air. Surgical clips right upper quadrant from prior | | | cholecystectomy. Moderate amount of stool within the right side of the | | | colon. Mild bilateral acetabular protrusio. | | + + + + + | Procedure Note | + + | Richard, Rad Conversion - 09/21/2018 3:31 PM PDT NORAH GRXR ABDOMEN ACUTE SERIES | | HISTORY:58 years. Male. Abdominal pain. TECHNIQUE:Single frontal view the chest with | | upright and supine anterior views of the abdomen. COMPARISON:01/10/2004 FINDINGS:The | | heart is normal in size. No pulmonary vascular congestion. No pneumothorax. No focal | | airspace disease or pleural effusion. Nonobstructive bowel gas pattern. No free | | intraperitoneal air. Surgical clips right upper quadrant from prior cholecystectomy. | | Moderate amount of stool within the right side of the colon. Mild bilateral acetabular | | protrusio. IMPRESSION: 1. No acute cardiopulmonary process.2. Nonobstructive bowel gas | | pattern.3. Moderate amount of stool within the colon. | |01/10/2004 | | | |FINDINGS: | |The heart is normal in size. No pulmonary vascular congestion. No pneumothorax. No focal ai rspace disease or pleural effusion. | | | |Nonobstructive bowel gas pattern. No free intraperitoneal air. Surgical clips right upper q uadrant from prior cholecystectomy. Moderate amount of stool within the right side of the co teofilo. Mild bilateral acetabular protrusio. | | | |IMPRESSION: | |1. No acute cardiopulmonary process. | |2. Nonobstructive bowel gas pattern. | |3. Moderate amount of stool within the colon. | | | | | + + Troponin I (01/18/2014 7:29 PM PST) + + + + + [...] | | | | | performed at [facility];[address] | | | | | | [facility];[place], [place] | | | | | | [address] | | | | + + + + + + + + | Specimen | + + | Blood specimen | | (specimen) | + + + +---------+ + + | Performing | Address | City/State/Zipcode | Phone Number | | Organization | | | | + +---------+ + + | EXTERNAL LAB | | | | + +---------+ + + D-Dimer (01/18/2014 7:29 PM PST) + + + + + + | Component | Value | Ref Range | Performed | Pathologist | | | | | At | Signature | + + + + + + | D-DIMER, | 0.62 (H)Comment: D Dimer | 0.19 - 0.50 [...] | | | | | performed at [facility] | | | | | | [facility];[place] | | | | | | [address] | | | | + + + + + + + + | Specimen | + + | | + + + +---------+ + + | Performing | Address | City/State/Zipcode | Phone Number | | Organization | | | | + +---------+ + + | EXTERNAL LAB | | | | + +---------+ + + External Lab: CBC (01/18/2014 7:29 PM PST) + + + + + + | Component | Value | Ref Range | Performed | Pathologist | | | | | At | Signature | + + + + + + | WBC | 9.7Comment: Testing | 3.8 - 11.0 K/uL | EXTERNAL | | | | performed at [facility];[address] | | LAB | | | | [address];[place] | | | | | | [address] | | | | + + + + + + | Non- | 4.69Comment: Testing | 4.20 - 5.70 | EXTERNAL | | | Red Blood | performed at [facility];888 | M/uL | LAB | | | Cells | [address];[place] | | | | | Counted | [address] | | | | + + + + + + | Hemoglobin | 12.4 (L)Comment: Testing | 13.2 - 17.0 | EXTERNAL | | | | performed at [facility];888 | g/dL | LAB | | | | [address];[place] | | | | | | [address] | | | | + + + + + + | Hematocrit, | 37.6 (L)Comment: Testing | 39.0 - 50.0 % | EXTERNAL | | | POC | performed at [facility];[address] | | LAB | | | | [address];[place] | | | | | | [address] | | | | + + + + + + | MCV | 80.3Comment: Testing | 80.0 - 100.0 fl | EXTERNAL | | | | performed at [facility];[address] | | LAB | | | | [address];[place] | | | | | | [address] | | | | + + + + + + | MCH | 26.5 (L)Comment: Testing | 27.0 - 34.0 pg | EXTERNAL | | | | performed at [facility];[address] | | LAB | | | | [address];[place] | | | | | | [address] | | | | + + + + + + | MCHC | 33.0Comment: Testing | 32.0 - 35.5 | EXTERNAL | | | | performed at [facility];888 | g/dL | LAB | | | | [address];[place] | | | | | | [address] | | | | + + + + + + | RDW-CV | 42.4Comment: Testing | 37 - 53 fl | EXTERNAL | | | | performed at [facility];[address] | | LAB | | | | [address];[place] | | | | | | [address] | | | | + + + + + + | Platelet | 243Comment: Testing | 150 - 400 K/uL | EXTERNAL | | | Count | performed at [facility];[address] | | LAB | | | Plasma | [address];[place] | | | | | | [address] | | | | + + + + + + | MPV | 8.0Comment: Testing | fl | EXTERNAL | | | | performed at [facility];[address] | | LAB | | | | [address];[place] | | | | | | [address] | | | | + + + + + + | Differentia | AUTOMATEDComment: | | EXTERNAL | | | l Type | Testing performed at | | LAB | | | | [facility];[address];[place] [address] | | | | + + + + + + | % Segmented | 68.3Comment: Testing | % | EXTERNAL | | | | performed at [facility];[address] | | LAB | | | Neutrophils | [address];[place] | | | | | | [address] | | | | + + + + + + | % | 21.1Comment: Testing | % | EXTERNAL | | | Lymphocytes | performed at [facility];[address] | | LAB | | | | [address];[place] | | | | | | [address] | | | | + + + + + + | % Monocytes | 8.6Comment: Testing | % | EXTERNAL | | | | performed at [facility];[address] | | LAB | | | | [address];[place] | | | | | | [address] | | | | + + + + + + | % | 1.4Comment: Testing | % | EXTERNAL | | | Eosinophils | performed at [facility];[address] | | LAB | | | | [address];[place] | | | | | | [address] | | | | + + + + + + | % Basophils | 0.6Comment: Testing | % | EXTERNAL | | | | performed at [facility];[address] | | LAB | | | | [address];[place] | | | | | | [address] | | | | + + + + + + | Absolute | 6.6Comment: Testing | 1.9 - 7.4 K/uL | EXTERNAL | | | Segmented | performed at [facility];[address] | | LAB | | | Neutrophils | [address];[place] | | | | | | [address] | | | | + + + + + + | Absolute | 2.1Comment: Testing | 1.0 - 3.9 K/uL | EXTERNAL | | | Lymphocytes | performed at [facility];[address] | | LAB | | | | [address];[place] | | | | | | [address] | | | | + + + + + + | Absolute | 0.8Comment: Testing | 0 - 0.8 K/uL | EXTERNAL | | | Monocytes | performed at [facility];[address] | | LAB | | | | [address];[place] | | | | | | [address] | | | | + + + + + + | Absolute | 0.1Comment: Testing | 0 - 0.5 K/uL | EXTERNAL | | | Eosinophils | performed at [facility];[address] | | LAB | | | | [address];[place] | | | | | | [address] | | | | + + + + + + | Absolute | 0.1Comment: Testing | 0 - 0.1 K/uL | EXTERNAL | | | Basophils | performed at [facility];[address] | | LAB | | | | [address];[place], [place] | | | | | | [address] | | | | + + + + + + + + | Specimen | + + | Blood specimen | | (specimen) | + + + +---------+ + + | Performing | Address | City/State/Zipcode | Phone Number | | Organization | | | | + +---------+ + + | EXTERNAL LAB | | | | + +---------+ + + Lipase (01/18/2014 7:29 PM PST) + + + + + + | Component | Value | Ref Range | Performed | Pathologist | | | | | At | Signature | + + + + + + | Lipase | 127Comment: Testing | 73 - 393 U/L | EXTERNAL | | | | performed at [facility];[address] | | LAB | | [...] | + +---------+ + + Lactic Acid (01/18/2014 7:29 PM PST) + + + + + + | Component | Value | Ref Range | Performed | Pathologist | | | | | At | Signature | + + + + + + | Lactate | 1.1Comment: Testing | 0.4 - 2.0 | EXTERNAL | | | | performed at [facility];[address] | mmol/L | LAB | | | | [address];[place] | | | | | | [address] | | | | + + + [...] + +---------+ + + Comprehensive Metabolic Panel (01/18/2014 7:29 PM PST) + + + + + + | Component | Value | Ref Range | Performed | Pathologist | | | | | At | Signature | + + + + + + | Na | 140Comment: Testing | 135 - 143 | EXTERNAL | | | | performed at [facility];[address] | mmol/L | LAB | | | | [address];[place] | | | | | | [address] | | | | + + + + + + | K | 4.3Comment: Testing | 3.5 - 4.9 | EXTERNAL | | | | performed at [facility];[address] | mmol/L | LAB | | | | [address];[place] | | | | | | [address] | | | | + + + + + + | Cl | 104Comment: Testing | 99 - 109 mmol/L | EXTERNAL | | | | performed at [facility];[address] | | LAB | | | | [address];[place] | | | | | | [address] | | | | + + + + + + | CO2 | 29Comment: Testing | 23 - 32 mmol/L | EXTERNAL | | | | performed at [facility];[address] | | LAB | | | | [address];[place] | | | | | | [address] | | | | + + + + + + | Anion Gap | 11Comment: Testing | 5 - 20 mmol/L | EXTERNAL | | | | performed at [facility];[address] | | LAB | | | | [address];[place] | | | | | | [address] | | | | + + + + + + | Glucose, | 215 (H)Comment: Testing | 65 - 99 mg/dL | EXTERNAL | | | Fasting | performed at [facility];[address] | | LAB | | | | [address];[place] | | | | | | [address] | | | | + + + + + + | BUN | 18Comment: Testing | 8 - 25 mg/dL | EXTERNAL | | | | performed at [facility];[address] | | LAB | | | | [address];[place] | | | | | | [address] | | | | + + + + + + | Creatinine | 1.34 (H)Comment: Testing | 0.70 - 1.30 | EXTERNAL | | | | performed at [facility];888 | mg/dL | LAB | | | | [address];[place] | | | | | | [address] | | | | + + + + + + | BUN/Creatin | 14Comment: Testing | | EXTERNAL | | | ine Ratio | performed at [facility];[address] | | LAB | | | | [address];[place] | | | | | | [address] | | | | + + + + + + | Calcium | 8.9Comment: Testing | 8.5 - 10.2 | EXTERNAL | | | | performed at [facility];888 | mg/dL | LAB | | | | [address];[place] | | | | | | [address] | | | | + + + + + + | Protein, | 7.3Comment: Testing | 6.3 - 8.2 g/dL | EXTERNAL | | | Total | performed at [facility];[address] | | LAB | | | | [address];[place] | | | | | | [address] | | | | + + + + + + | Albumin | 3.4 (L)Comment: Testing | 3.6 - 5.0 g/dL | EXTERNAL | | | | performed at [facility];[address] | | LAB | | | | [address];[place] | | | | | | [address] | | | | + + + + + + | Globulin | 3.9Comment: Testing | 1.3 - 4.9 g/dL | EXTERNAL | | | | performed at [facility];[address] | | LAB | | | | [address];[place] | | | | | | [address] | | | | + + + + + + | A/G Ratio | 0.9 (L)Comment: Testing | 1.0 - 2.4 | EXTERNAL | | | | performed at [facility];[address] | | LAB | | | | [address];[place] | | | | | | [address] | | | | + + + + + + | Bilirubin | 0.1Comment: Testing | 0.1 - 1.5 mg/dL | EXTERNAL | | | Total | performed at [facility];[address] | | LAB | | | | [address];[place] | | | | | | [address] | | | | + + + + + + | ALP, | 86Comment: Testing | 35 - 115 U/L | EXTERNAL | | | External | performed at [facility];[address] | | LAB | | | | [address];[place] | | | | | | [address] | | | | + + + + + + | AST | 20Comment: Testing | 10 - 45 U/L | EXTERNAL | | | | performed at [facility];[address] | | LAB | | | | [address];[place] | | | | | | [address] | | | | + + + + + + | ALT | 27Comment: Testing | 10 - 65 U/L | EXTERNAL | | | | performed at [facility];[address] | | LAB | | | | [address];[place], [place] | | | | | | [address] | | | | + + + [...] | | | | | | at [facility];[address] [place] [address] | | | | | | [facility];[place] [address] | | | | + + + [...] + +---------+ + + ECG 12 lead (01/18/2014 6:22 PM PST) + + + + + + | Component | Value | Ref Range | Performed | Pathologist | | | | | At | Signature | + + + + + + | DIAGNOSIS: | Sinus rhythm with | | EXTERNAL | | | | Premature atrial | | LAB | | | | complexes with Aberrant | | | | | | conductionNonspecific ST | | | | | | and T wave | | | | | | abnormalityAbnormal | | | | | | ECGWhen compared with | | | | | | ECG of 22-DEC-2013 | | | | | | 14:45,Premature | | | | | | ventricular complexes | | | | | | are no longer | | | | | | PresentAberrant | | | | | | conduction is now | | | | | [...] | | | | | ONLY, -COMPUTER ([id number]), | | | | | | newspaper editor managing Leanna Cheng | | | | | | (29 on 01/19/2014 | | | | | | 6:28:22 AM | | | | + + + + + + + + | Specimen | + + | | + + + + + | Narrative | Performed At | + + + | [facility] | EXTERNAL LAB | + + + + +---------+ + + | Performing | Address | City/State/Zipcode | Phone Number | | Organization | | | | + +---------+ + + | EXTERNAL LAB | | | | + +---------+ + + documented in this encounter Visit Diagnoses + + | Diagnosis | + + | Abdominal pain, LUQ Abdominal pain, left upper quadrant | + + | Gastritis Unspecified gastritis and gastroduodenitis without mention of hemorrhage | + + | Swelling of left lower extremity Swelling of limb | + + documented in this encounter
--- OUTSIDE RECORDS SUMMARY | ~2019-10-12 | XMS | Encounter Summary ---
Demographics + + + | Address | [address] | | | [place] [address] | + + + | Home Phone [...] + + + | Author | [facility] | | | and [place] | + + + | Organization | [facility] | | | and [place] | + + + | Address | Unknown | + + + | Phone | Unavailable | + + + Support + + + + + | Name | Relationship | Address | Phone | + + + + + | Sammi Kohler | ECON | [place] [address] | | + + + + + Care Team Providers + +------+ + | Care Corn Breeder Name | Role | Phone | + +------+ + PCP | Unavailable | + +------+ + Encounter Details +--------+ + + + + | Date | Type | Department | Care Team | Description | +--------+ + + + + | 11/20/ | Emergency | [facility] | Ger Llamas, | Nayana armas, | | 2013 | | [facility] | [address] | bilateral | | | | EMERGENCY CENTER | [place] [address] | | | | | [address] | [phone] | | | | | [place], [place] | | | | | | [address] | | | | | | [phone] | | | +--------+ + + + [...] Author: QUINN White Service: (none) Author Type: Beef Specialist Filed: 11/20/13 1250 Date of Service: 11/20/13 1248 Status: Signed Rrt: QUINN White (Beef Specialist) COLTON alert Rcvd pt is part of [facility] - pt called his PCP who directed pt to Urgent care, [facility] called [facility] for transport to [facility] ED Called ELGIN ok with accepting pt [...] Date of Service: 11/20/13 1300 Status: Signed Rrt: Leslie Verdin RN (Registered Nurse) [facility] case managers stated they will be here at 1400 Leslie Verdin RN 11/20/13 1312 onver ivana Transaction, Provider Unknown - 11/20/2013 12:24 PM PDT ED Notes by Leslie Verdin RN at 11/20/13 1224 Author: Leslie Verdin RN Service: (none) Author Type: Registered Nurse Filed: 11/20/13 1311 Date of Service: 11/20/13 1224 Status: Signed Rrt: Leslie Verdin RN (Registered Nurse) Call [facility] case managers to arrange transportation for pt Leslie Verdin RN 11/20/13 1311 Eduardo Hodge PA-C - 11/20/2013 11:48 AM PDT ED Provider Notes by Eduardo Mcmanus PA-C at 11/20/13 1148 Author: Eduardo Mcmanus PA-C Service: (none) Author Type: Physician Or Nurse Manager - Sherrii fied Filed: 11/20/13 1220 Date of Service: 11/20/13 1148 Status: Attested Addendum Rrt: Eduardo Mcmanus PA-C (Physician Or Nurse Manager - Certified) Related Notes: Original Note by Eduardo Mcmanus PA-C (Physician Or Nurse Manager - Certified) filed at 11/20/13 1216 Cosigner: Ger Llamas MD at 11/20/13 1349 Attestation signed by Ger Llamas MD at 11/20/13 1345 I have reviewed the note and supervised the mid-level provider. Procedures [facility] Department of Emergency Medicine HPI History of Present Illness Patient Identification Kevyn Guzman is a 57 y.o. male. Patient information was obtained from patient. History/Exam limitations: none. Patient presented to the Emergency Department by: [facility] Chief Complaint Chief Complaint Patient [...] of ear pain patient is from a [facility] facility assisted care also has chronic stomach [...] - CHOLECYSTECTOMY; Surgeon: Jevon Vargas DO; Location: [facility] MAIN OR; Service: General; Laterality: N/A; Abdominal surgery Cholecystectomy Skin cancer excision 10/10/2012 Procedure: EXCISION - SKIN CANCER; Surgeon: Sy Fierro MD; Location: [facility] MAIN OR ; Service: Plastics; Laterality: Left; upper arm and upper back w/frozen section Esophagogastroduodenoscopy 03/03/2013 Procedure: ESOPHAGOGASTRODUODENOSCOPY; Surgeon: Howie Gibson MD; Location: [facility] ENDOSCOPY; S ervice: Gastroenterology; Laterality: N/A; Colonoscopy 03/04/2013 Procedure: COLONOSCOPY; Surgeon: Howie Gibson MD; Location: [facility] ENDOSCOPY; Service: Gastroe nterology; Laterality: N/A; Upper gastrointestinal endoscopy Skin biopsy Hernia repair 07/03/2013 Procedure: LAPAROSCOPIC - HERNIA - INCISIONAL; Surgeon: Jevon Vargas DO; Location: [facility] MAIN OR; Service: General; Laterality: [...] into the skin nightly. H istorical Provider ilwgkmrnj-jpcxfsdf-canqrtllj hydroxide-simethicone Take 40 mLs by mouth daily [...] 121-150=5U, 151-180=6U, 181-210= 7U, 211- 04/23/13 Ky kristen Yeh MD omeprazole (PRILOSEC) 20 MG capsule [...] ear lavage which can be done by conference assistant living staff. Patient has chronic abdom inal [...] Contact Info Jerrell Diego, DO Go in 2 days [address] [facility] [address] Discharge Medications: New Prescriptions ANTIPYRINE-BENZOCAINE (AURALGAN) OTIC SOLUTION Place 4 drops into both ears once. Eduardo Mcmanus PA-C 11/20/13 1216 Eduardo Mcmanus PA-C 11/20/13 1220 Ger Llamas MD 11/20/13 134 onversion Transact ion, Provider Unknown - 11/20/2013 11:41 AM PDTFormatting of this note might be different fr om the original. ED Notes by Melania Hammer RN at 11/20/13 1141 Author: Melania Hammer RN Service: (none) Author Type: Registered Nurse Filed: 11/20/13 1141 Date of Service: 11/20/13 1141 Status: Signed Rrt: Melania Hammer RN (Registered Nurse) Here from [facility] with bilat ear pain, states started last night and chronic left qu ad pain that has been ongoing since February, was seen here on the Melania Hammer RN 11/20/13 1143 onver ivana Transaction, Provider Unknown - 11/20/2013 11:35 AM PDT ED Notes by Michelle Palomares RN at 11/20/131134 Author: Michelle Palomares RN Service: (none) Author Type: Registered Nurse Filed: 11/20/131134 Date of Service: 11/20/131134 Status: Signed Rrt: Michelle Palomares RN (Registered Nurse) Bed: 02 [...] | | | | | [address] [place], | | | | | | [place] [address] | | | | | | [phone] | | | | | | | | +--------+ + + + + documented as of this encounter Visit Diagnoses + + | Diagnosis | + + | Cerumen impaction, bilateral | + + documented in this encounter"
--- OUTSIDE RECORDS SUMMARY | ~2019-10-12 | XMS | Encounter Summary ---
Demographics + + + | Address | [address] | | | [place] [address] | + + + | Home Phone [...] + | Sammi Kohler | ECON | [place] [address] | | + + + + + Care Team Providers + +------+ + | Care Regional Marketing Manager Name | Role | Phone | [...] + + | 06/06/ | Telephone | SAMY [place] | Lucia Amos | Other | | 2020 | | [facility] [address] | | | | | [address] | | | | | | [place] | | | | | | [address] | | | | | | [phone] | | | +--------+ + + + [...] Telephone Encounter - Lucia Amos RN - 06/07/2019 3:49 PM PDTCall placed to [facility] ladonna abel, no answer, left VM with clinic phone number. elephone Encounter - Mireya Pack NP - 06/07/2019 3:4 8 PM PDTagree elephon e Encounter - Lucia Amos RN - 06/07/2019 2:19 PM PDTCall received from [facility] EVE ramsey, reporting that : Patient 199/98 was his BP reading today, patient said that he took his medications. He has bubble pack for his meds. HH said he is punching out on both sides of the bubble pack and no t following the dates/number on the card. HH attempted to look closely at the bubble pack bu t patient grabbed it back from her hands saying, "I know what I'm doing" and did not let HH look at the bubble pack again. HH also noted that he peed in his pants. He lives in an apt by himself but has caregivers that go see him three days a week. Patient told HH that sometimes he does that, he pees in h is pants. Requesting for TERMINAL OPERATOR to go see patient, routed to PCP, do you agree with this request? Reviewed with HH that patient can take extra dose of hydralazine 25mg if BP is > 160/90. Sh e stated understanding. P M PDTdocumented in this encounter Plan [...] [place], | | | | | | [place] [address] | | | | | | [phone] | | | | | | | | +--------+ + + + + documented as of this encounter Visit Diagnoses Not on filedocumented in this encounter
--- OUTSIDE RECORDS SUMMARY | ~2019-10-12 | XMS | Encounter Summary ---
Demographics + + + | Address | [address] | | | [place] [address] | + + + | Home Phone [...] + | Sammi Kohler | ECON | [place] [address] | | + + + + + Care Team Providers + +------+ + | Care Dynamic Balancer Set Up Worker Name | Role | Phone | + +------+ + PCP | Unavailable | + +------+ + Encounter Details +--------+ + + + + | Date | Type | Department | Care Team | Description | +--------+ + + + + | 09/27/ | Emergency | [facility] | Elmo Thorne | Acute URI; Midline | | 2015 | | [facility] | DO K[address] | low back pain | | | | [facility] | RANDELL WOOD | without sciatica; | | | | [address] | [place] [address] | Elevated blood | | | | [place], [place] | [phone] | pressure; Acute | | | | [address] | | epigastric pain | | | | [phone] | | | +--------+ + + + [...] documented as of this encounter ED Notes Elmo Thorne DO - 09/27/2014 2:15 AM PDTFormatting of this note might be differen t from the original. ED Provider Notes by Elmo Thorne DO at 09/27/14214 Author: Elmo Thorne DO Service: Emergency Department Author Type: Physician Filed: 09/27/14746 Date of Service: 09/27/14214 Status: Signed Estimator Printing: Elmo Thorne DO (Physician) [facility] Department of Emergency Medicine 7:47 AM History of Present Illness Patient Identification Kevyn Guzman is a 58 y.o. male. Patient information was obtained from patient, EMS personnel and past medical records. History/Exam limitations: none. Patient presented to the Emergency Department by: [facility] 1724 Chief Complaint Chief Complaint Patient presents with Shortness of Breath Patient is a 58 y.o. male presenting with shortness of breath. The history is provided by t he patient and the EMS personnel. The history is limited by the condition of the patient. Shortness of Breath The current episode started today. The onset was gradual. The problem occurs frequently. Th e problem has been unchanged. The problem is mild. Nothing relieves the symptoms. The sympto ms are aggravated by activity. Associated symptoms include shortness of breath. Pertinent ne gatives include no chest pain, no fever, no rhinorrhea, no sore throat, no stridor, no cough and no wheezing. There was no intake of a foreign body. He was not exposed to toxic fumes. He has not inhaled smoke recently. He has had intermittent steroid use. His past medical his tory is significant for asthma. His past medical history does not include past wheezing. He has been behaving normally. Urine output has been normal. There were no sick contacts. Recen tly, medical care has been given at this facility. Services received include tests performed . 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 Past Surgical History Procedure Laterality Date Unlisted procedure arthroscopy Knee surgery rt knee, patella Leg surgery LLE Colonoscopy Cholecystectomy, laparoscopic 09/12/2012 Procedure: LAPAROSCOPIC - CHOLECYSTECTOMY; Surgeon: Jevon Vargas DO; Location: [facility] MAIN OR; Service: General; Laterality: N/A; Abdominal surgery Cholecystectomy Skin cancer excision 10/10/2012 Procedure: EXCISION - SKIN CANCER; Surgeon: Sy Fierro MD; Location: [facility] MAIN OR ; Service: Plastics; Laterality: Left; upper arm and upper back w/frozen section Esophagogastroduodenoscopy 03/03/2013 Procedure: ESOPHAGOGASTRODUODENOSCOPY; Surgeon: Howie Gibson MD; Location: [facility] ENDOSCOPY; S ervice: Gastroenterology; Laterality: N/A; Colonoscopy 03/04/2013 Procedure: COLONOSCOPY; Surgeon: Howie Gibson MD; Location: [facility] ENDOSCOPY; Service: Gastroe nterology; Laterality: N/A; Upper gastrointestinal endoscopy Skin biopsy Hernia repair 07/03/2013 Procedure: LAPAROSCOPIC - HERNIA - INCISIONAL; Surgeon: Jevon Vargas DO; Location: [facility] MAIN OR; Service: General; Laterality: N/A; Skin lesion excision Left 05/05/2014 Procedure: EXCISION - LESION - FROZEN SECTION; Surgeon: Sy Fierro MD; Location: [facility] MAIN OR; Service: Plastics; Laterality: Left; forearm Prior to Admission medications Medication Sig Start Date End Date Taking? Authorizing Provider Albuterol Sulfate (VENTOLIN HFA IN) Inhale 2 puffs into the lungs as needed. 108 mcg/act Historical Provider Oonfv-V-Mibkssztxglab (BEANO) TABS Take 150 Units by mouth [...] 100 mg by mouth nightly. Historical Provider lszlmvkok-vaykrlqh-vzzgluyum hydroxide-simethicone Take 40 mLs by mouth daily [...] Lives alone x 1 wk, moved from [facility], , 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 2 falls in the last 6 months. Family History Problem Relation Age of Onset Heart disease Father Heart disease Sister Diabetes type II Sister Heart Problems Brother Review of Systems Review of Systems Constitutional: Negative for fever, chills and malaise/fatigue. HENT: Negative for rhinorrhea and sore throat. Respiratory: Positive for shortness of breath. Negative for cough, wheezing and stridor. Cardiovascular: Negative for chest pain and palpitations. Gastrointestinal: Negative for nausea and vomiting. Musculoskeletal: Positive for back pain. Negative for myalgias and joint pain. Skin: Negative for itching and rash. Neurological: Negative for headaches. All other systems reviewed and are negative. Physical Exam BP 177/72 mmHg | Pulse 69 | Temp(Src) 97 F (36.1 C) (Oral) | Resp 18 | SpO2 98% Vital signs interpretation: Mildly hypertensive, otherwise normal Pulse Oximetry interpretation: Normal Physical Exam Constitutional: He is oriented to person, place, and time. He appears well-developed and we ll-nourished. No distress. HENT: Head: Atraumatic. Right Ear: External ear normal. Tympanic membrane is bulging. Tympanic membrane is not eryt hematous. Left Ear: External ear normal. Tympanic membrane is bulging. Tympanic membrane is not eryth ematous. Mouth/Throat: No oropharyngeal exudate, posterior oropharyngeal edema or posterior orophary ngeal erythema. Mild postnasal drainage Eyes: Conjunctivae are normal. Right eye exhibits no discharge. Left eye exhibits no discha rge. Neck: Normal range of motion. Neck supple. Cardiovascular: Normal rate, regular rhythm and normal heart sounds. Exam reveals no frict ion rub. No murmur heard. Pulmonary/Chest: Effort normal and breath sounds normal. No respiratory distress. He has no wheezes. He has no rales. Abdominal: He exhibits no distension. Round Genitourinary: Deferred Musculoskeletal: Normal range of motion. He exhibits no edema or deformity. Patellar DTRs: L-- 2/4, R-- 2/4; Achilles DTRs: L--2/4, R--2/4; Strength: L-- 5/5, R-- 5/5; Extension of the Greater Hallucis Longus: L-- strong, R-- strong; Sensory: L-- no deficits, R-- no deficits; no vertebral body tenderness to palpation noted Neurological: He is alert and oriented to person, place, and time. No cranial nerve deficit . Skin: Skin is warm and dry. No rash noted. Psychiatric: He has a normal mood and affect. His behavior is normal. Judgment and thought content normal. Nursing note and vitals reviewed. Medical Decision Making and Emergency Department Course ED Department Course The patient presents with vague complaints of shortness of breath and back pain. He also wa s complaining of some epigastric discomfort that he refers to as chest pain. I reviewed the patient's records, and notes that he had a normal cardiac catheterization done less than one year ago, and had a normal stress test done within the last 2 months. Given the vagueness o f the patient's symptoms, his physical examination and his recent thorough evaluation of his coronary arteries I do not feel that his "chest pain" and shortness of breath or cardiac in nature. I also do not feel the patient's shortness of breath is due to an acute pulmonary i ssue, he does appear to have some upper respiratory infection and postnasal drainage. I have encouraged the patient to follow up with his primary care physician, I do not feel he warra nts any further testing at this time. The patient is stable for discharge and further outpat ient treatment as deemed necessary by the primary care team. Differential diagnosis includes but is not limited to: Acute coronary syndrome, dyspnea, fu nctional back pain, upper respiratory infection Records Reviewed Old medical records. Nursing notes. Laboratory Evaluation Results None I personally reviewed the lab results and they have been posted to the chart. Pertinent po sitive and negative findings have been addressed appropriately. Radiology and EKG Evaluation Imaging Results None ED Diagnoses Final diagnoses Acute URI Midline low back pain without sciatica Elevated blood pressure Acute epigastric pain Disposition: ED Disposition Discharge Condition at discharge: Stable Follow-up Information Follow up With Details Comments Contact Info Jerrell Diego DO Schedule an appointment as soon as possible for a visit [address] [place] [address] [facility] [phone] [facility] Emergency Department If symptoms worsen [address] [facility] [id number] Discharge Medications: Discharge Medication List as of 09/27/2014 2:29 AM START taking these medications Details fluticasone (FLONASE) 50 MCG/ACT nasal 1 spray by Nasal route 2 (two) times daily as needed for Rhinitis (for sinus pressure)., Starting 09/27/2014, Until 09/27/15, Print Dr. Elmo Thorne D.O. Dictation software, [employer], used which may contain error for similar sounding words even af ter review. Personal communication requested for any clarification. Procedures Additional Documentation Procedures Elmo Thorne DO 09/27/14 0747 onversio n Transaction, Provider Unknown - 09/27/2014 2:03 AM PDTFormatting of this note might be di fferent from the original. ED Notes by Ivonne Hernandez RN at 09/27/14202 Author: Ivonne Hernandez RN Service: (none) Author Type: Registered Nurse Filed: 09/27/14202 Date of Service: 09/27/14202 Status: Signed Estimator Printing: Ivonne Hernandez RN (Registered Nurse) Bed: 04 Expected date: Expected time: Means of arrival: [...] | | | | | | [facility], | | | | | | [place] [address] | | | | | | [phone] | | | | | | | | +--------+ + + + + documented as of this encounter Visit Diagnoses + + | Diagnosis | + + | Acute URI Acute upper respiratory infections of unspecified site | + + | Midline low back pain without sciatica | + + | Elevated blood pressure Elevated blood pressure reading without diagnosis of | | hypertension | + + | Acute epigastric pain Abdominal pain, epigastric | + + documented in this encounter
--- OUTSIDE RECORDS SUMMARY | ~2019-10-12 | XMS | Encounter Summary ---
Demographics + + + | Address | [address] | | | [place] [address] | + + + | Home Phone [...] + | Author | [facility] | | | and [place] | + + + | Organization | [facility] | | | and [place] | + + + | Address | Unknown | + + + | Phone | Unavailable | + + + Support + + + + + | Name | Relationship | Address | Phone | + + + + + | Sammi Kohler | ECON | [place] [address] | | + + + + + Care Team Providers + +------+ + | Care Compressed Gas Tester Name | Role | Phone | [...] | | | [address] | [place] [address] | | | | | [place], [place] | [phone] | | | | | [address] | | | | | | [phone] | | | +--------+ + + + [...] | | | | | [address] [place], | | | | | | [place] [address] | | | | | | [phone] | | | | | | | [...]
--- OUTSIDE RECORDS SUMMARY | ~2019-10-12 | XMS | Encounter Summary ---
Demographics + + + | Address | [address] | | | [place] [address] | + + + | Home Phone [...] + | Sammi Kohler | ECON | [place] [address] | | + + + + + Care Team Providers + +------+ + | Care Utility Technician Name | Role | Phone | [...] | | | | [address] | [place] | | | | | | [address] | [address] | | | | | | [place], [place] | [place], | | | | | | [address] | [place] [address] | | | | | | Phone: | Phone: | | | | | | [phone] | [phone] | | | | | | Fax: | Fax: | | | | | | [phone] | [phone] | + + + + + + + Reason for Visit +--------+ + | Reason | Comments | +--------+ + | Other | ED follow up | +--------+ + Encounter Details +--------+---------+ + + + | Date | Type | Department | Care Team | Description | +--------+---------+ + + + | 07/30/ | Office | [facility] | Mireya Pack, | COPD with lower | | 2020 | Visit | [facility] [address] | [address] | respiratory | | | | [address] | [address] [place], | infection (HCC) | | | | [place], [place] | [place] [address] | (Primary Dx); Type 2 | | | | [address] | [phone] | diabetes mellitus | | | | [phone] | | with hyperglycemia, | | | | | | with long-term | | | | | | current use of | | | | | | insulin ([facility]); BPH | | | | | | with | | | | | | obstruction/lower | | | | | | urinary tract | | | | | | symptoms; Chronic | | | | | | a-fib ([facility]); | | | | | | Impacted [...] 4-5 days to get level checked. 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 2 falls [...] medications for this visit. HPI Patient admitted [facility] inpatient 07/23/19-07/27/19 presented with palpations and vague [...] 8.9 (H) 07/25/2019 No components found for: [id number], PTHINT No results found for: [id number] Lab Results Component Value Date TSH 2.780 [...] change to warfarin: - Ambulatory Referral to [facility] Anticoagulation Monitoring - warfarin (COUMADIN) 5 mg tablet; Take 1 tablet by mouth nightly Short term rx until e stablishes with coumadin clinic. Send refill requests to [facility] coumadin clinic. Impacted cerumen, bilateral Cerumen removal with instrumentation performed before and after lavage. Continues with impa cted cerumen right ear and instructed home [...] | | | | | | [facility] [facility], | | | | | | [place] [address] | | | | | | [phone] | | | | | | | [...] to Sara | Referral | e | ([facility]) | | | Anticoagulation | | | [...] (HCC) Atrial fibrillation | + + | Impacted cerumen, bilateral | + + documented in this encounter"
--- OUTSIDE RECORDS SUMMARY | ~2019-10-12 | XMS | Encounter Summary ---
Demographics + + + | Address | [address] | | | [place] [address] | + + + | Home Phone | | + + + | Preferred Language | Unknown | + + + | Marital Status | | + + + | Spiritism Affiliation | [id number] | + + + [...] | Sammi Kohler | ECON | [place] [address] | | + + + + + Care Team Providers + +------+ + | Care Broom Man Name | Role | Phone | + [...] Description | +--------+--------+ + + + | 09/05/ | Refill | [facility] [place] | Mireya Pack, | Medication Refill | | 2019 | | [facility] [address] | DRAFT ROLLER PICKER [address] | | | | | [address] | [address] [facility] | | | | | [facility] [place] | [place] [address] | | | | | [address] | [phone] | | | | | [phone] | | | +--------+--------+ + + + [...] Miscellaneous Notes Telephone Encounter - Mel Morton, Weaving Loom Operator - 09/09/2019 8:23 AM PDTFormatt ing of this note might be different from the original. Pharmacy requesting refill. Last appointment was 08/21/2019. Next appointment 09/11/2019. Requested Prescriptions Pending Prescriptions Disp Refills metoprolol succinate (TOPROL-XL) 50 mg 24 hr tablet [Pharmacy Med Name: metoprolol succ inate ER 50 mg tablet,extended release 24 hr] 180 tablet 3 Sig: TAKE ONE TABLET BY MOUTH TWICE DAILY ARIPiprazole (ABILIFY) 5 mg tablet [Pharmacy Med Name: aripiprazole 5 mg tablet] 90 tab let 3 Sig: TAKE ONE TABLET BY MOUTH DAILY docu mented in this encounter Plan of Treatment +--------+ + + + + | Date | Type | Specialty | Care Team | Description | +--------+ + + + + | 10/16/ | Anti-coag | Anticoagulation | Brittany Zaragoza | | 2019 | visit | | [address] | | | | | | [address] [place], | | | | | | [place] [address] | | | | | | [phone] | | | | | | | | +--------+ + + + + documented as of this encounter Visit Diagnoses Not on filedocumented in this encounter"
--- OUTSIDE RECORDS SUMMARY | ~2019-10-12 | XMS | Encounter Summary ---
Demographics + + + | Address | [address] | | | [place] [address] | + + + | Home Phone [...] + | Sammi Kohler | ECON | [place] [address] | | + + + + + Care Team Providers + +------+ + | Care Document Processing Specialist Name | Role | Phone | [...] + + | 04/14/ | Telephone | [facility] | Mireya Pack, | ED Follow-up | | 2020 | | [facility] [address] | SUPERVISOR HANGING [employer] TRIMMING [address] | | | | | [address] | [address] [place], | | | | | [place], [place] | [place] [address] | | | | | [address] | [phone] | | | | | [phone] | | | +--------+ + + + [...] - 04/15/2019 11:55 AM PDTCall received from [employer] call center, patient called to cancel the ED follow [...] up with provider. Please call him at [phone] Heidi Moody documented in this enco unter [...] | | | | | | [place] [address] | | | | | | [phone] | | | | | | | | +--------+ + + + + documented as of this encounter Visit Diagnoses Not on filedocumented in this encounter"
--- OUTSIDE RECORDS SUMMARY | ~2019-10-12 | XMS | Encounter Summary ---
Demographics + + + | Address | [address] | | | [place] [address] | + + + | Home Phone [...] Sammi Kohler | ECON | [place] [address] | | + + + + + Care Team Providers + +------+ + | Care Sizing End Bander Name | Role | Phone | + +------+ + | Mireya Pack NP | PCP | | + +------+ + Encounter Details +--------+ + + + + | Date | Type | Department | Care Team | Description | +--------+ + + + + | 09/17/ | Orders Only | [facility] | Sanjayivana, | Type 2 diabetes | | 2020 | | [address] | [place], | mellitus with | | | | [place] | Multicut Line Operator | hyperglycemia, with | | | | [address] | | long-term current | | | | [phone] | | use of insulin (HCC) | [...] [place], | | | | | | [place] [address] | | | | | | [phone] | | | | | | | | +--------+ + + + + documented as of this encounter Procedures + +--------+ + + + | Procedure Name | Priori | Date/Time | Associated Diagnosis | Comments | | | ty | | | | + +--------+ + + + | HEMOGLOBIN A1C | Routin | 09/18/2019 | Type 2 diabetes | Results for this | | | e | 2:34 PM | mellitus with | procedure are in the | | | | PDT | hyperglycemia, with | results section. | | | | | long-term current | | | | | | use of insulin (HCC) | | + +--------+ + + + documented in this encounter Results Hemoglobin A1C (09/18/2019 2:34 [...] [address], | | | | | | [address], [facility] | | | | | | [address] | | | | + + + + + + + + | Specimen | + + | Blood | + + + + + + + | Performing | Address | City/State/Zipcode | Phone Number | | Organization | | | | + + + + + | REFERENCE LAB | [address] [place] [address] | [place], [place] | [phone] | | [facility] | Bl[address] | [address] | | | LABORATORY | | | | + + + + + | REFERENCE LAB | [address] [place] [address] | [place], [place] | | | [facility] | Blvd. | [address] | | | LABORATORY | | | | + + + + + documented in this encounter Visit Diagnoses + + | Diagnosis | + + | Type 2 diabetes mellitus with hyperglycemia, with long-term current use of insulin | | (HCC) | + + documented in this encounter"
--- OUTSIDE RECORDS SUMMARY | ~2019-10-12 | XMS | Encounter Summary ---
Demographics + + + | Address | [address] | | | [place] [address] | + + + | Home Phone [...] + | Sammi Kohler | ECON | [place] [address] | | + + + + + Care Team Providers + +------+ + | Care Optometrist President/Practice Owner Name | Role | Phone | + [...] + + | 08/05/ | Emergency | [facility] | [place], | Other insomnia | | 2019 | | [facility] | PA-C [address] | (Primary Dx); Atrial | | | | EMERGENCY CENTER | [facility] [place] | fibrillation, | | | | [address] | [address] | unspecified type | | | | [place], [place] | [phone] | (HCC); | | | | [address] | | Hyperglycemia; | | | | [phone] | Zach Garnica DO | Essential | | | | | [address] | hypertension | | | | | [place], [place] | | | | | | [address] | | | | | | [phone] | | | | | | | [...] Care Everywhere.Atrial Fibrilla tion, Discharge Instructions for (Romanian)documented in this encounter Medications at Time [...] | | | | use of insulin ([facility]) | | | | | [...] | | | | use of insulin ([facility]) | | | | | [...] | | | | | | to [facility] coumadin | | | | | | | clinic. | | | | | + + + +---------+ + + documented as of this encounter ED Notes Flaco Strange RN - 08/06/2019 6:04 AM PDTCalled dial a ride for pt, they state they wi ll have someone at the [facility] lobby to pick him up in 10-15 min. Ana Zuñiga PA-C - 08/06/2019 3:39 AM PDTFor matting of this note might be different from the original. [facility] Department of Emergency Medicine No flowsheet [...] (HCC) 10/14/2017 Anxiety ARF (acute renal failure) ([facility]) 03/02/2013 Atrial fibrillation (HCC) Basal cell carcinoma 09/26/2012 arm and back COPD (chronic obstructive pulmonary disease) ([facility]) 03/02/2013 hypoxemia on 2 lts nc Depression Development delay Diabetes mellitus type II DVT (deep venous thrombosis) ([facility]) 03/29/2018 Facial droop 07/08/2013 GIB (gastrointestinal bleeding) 03/02/[address] Nur, rectal ulcers, nodule of GE junction Hypercholesterolemia 07/08/2013 Hyperlipidemia Hypertension 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 Obesity, Class I, BMI 30-34.9 07/08/2013 WARD (obstructive sleep apnea) 08/11/2012 does not use CPAP because of the noise Other chronic pain Renal failure Stroke (HCC) TIA (transient ischemic attack) Unspecified visual disturbance reading glasses Past Surgical History: Procedure Laterality Date ABDOMEN SURGERY CHOLECYSTECTOMY CHOLECYSTECTOMY, LAPAROSCOPIC 09/12/2012 Procedure: LAPAROSCOPIC - CHOLECYSTECTOMY; Surgeon: Jevon Vargas DO; Location: [facility] OR; Service: General; Laterality: N/A; COLONOSCOPY COLONOSCOPY 03/04/2013 Procedure: COLONOSCOPY; Surgeon: Howie Gibson MD; Location: [facility] END[facility]COPY; Service: Gastroen terology; Laterality: N/A; HERNIA REPAIR 07/03/2013 Procedure: LAPAROSCOPIC - HERNIA - INCISIONAL; Surgeon: Jevon Vargas DO; Location: [facility] MA[facility] OR; Service: General; Laterality: N/A; KNEE SURGERY rt knee, patella LEG SURGERY LLE OTHER SURGICAL HISTORY UNLISTED PROCEDURE ARTHROSCOPY OTHER SURGICAL HISTORY Left 05/05/2014 SKIN LESION EXCISION - Procedure: EXCISION - LESION - FROZEN SECTION; Surgeon: Sy murcia MD; Location: [facility] MA[facility] OR; Service: Plastics; Laterality: Left; forearm SKIN BIOPSY SKIN CANCER EXCISION Left 10/10/2012 Procedure: EXCISION - SKIN CANCER; Surgeon: Sy Fierro MD; Location: [facility]; Service: Plastics; Laterality: Left; upper arm and upper back w/frozen section UPPER GASTROINTESTINAL ENDOSCOPY UPPER GASTROINTESTINAL ENDOSCOPY 03/03/2013 Procedure: ESOPHAGOGASTRODUODENOSCOPY; Surgeon: Howie Gibson MD; Location: [facility] ENDOSCOPY; Se rvice: Gastroenterology; Laterality: N/A; MEDICAL [employer]ICER PSYCHIATRY Home Medications Medication Sig ARIPiprazole (ABILIFY) 5 [...] with coumadin clinic. Send refill requests to [facility] coumadin clinic. Allergies Allergen Reactions Nitroglycerin Swelling [...] alone x 1 wk, moved from [facility], , 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 2 [...] 2 his hypertension presents 6 months at [facility] of hyper lipidemia hypertension presents [...] bone abnormality. Impression Negative chest. Signed by: Taylor, M.D., Malia Sign Date/Time: 08/06/2019 4:24 AM Clinical Impression ICD-10-CM ICD-9-CM 1. Other insomnia G47.09 780.52 2. Atrial fibrillation, unspecified type (HCC) I48.91 427.31 3. Hyperglycemia R73.9 790.29 4. Essential hypertension I10 401.9 Disposition: Follow-up Information Holly Pack NP. Specialty: Nurse Practitioner - Gerontology Why: As needed, If symptoms worsen Contact information: [address] [facility] [address] [facility]. Specialty: Emergency Medicine Why: As needed, If symptoms worsen Contact information: [address] [facility] [phone] JULISSA Ye PA-C 08/06/19 0608 Associated attestation - Zach Garnica DO - 08/06/2019 6:15 AM PDTI was available for di rect supervision of the MLP as needed, please see their note for details.' Kristen Smyth RN - 08/06/2019 3:32 AM PDTBed: ED19 Expected date: Expected time: Means of arrival: Comments: 1722 doc umented in this encounter Plan of Treatment +--------+ + + + + | Date | Type | Specialty | Care Team | Description | +--------+ + + + + | 10/16/ | Anti-coag | Anticoagulation | Brittany Zaragoza | | | 2019 | visit | | [address] | | | | | | [address] [place], | | | | | | [place] [address] | | | | | | [phone] | | | | | | | [...] M?MRN: | | | | | | [id number] | | | [id number] | | | riteri | | | [...] | | | St. | | | [place] | | | y | | | [...] | | | St. | | | [place] | | | y H. | | [...] | | | St. | | | [place] | | | y H. | | [...] | | | [place] | | | Certified Lactation Educator | | | al | | | [...] | | | [place] | | | Certified Lactation Educator | | | al | | | [...] | | | [place], | | | [employer] | | | Nurse | | | [...] + | Negative chest. Signed by: Irina aTylor, Malia Pina | [facility] | | [...] (500), | | | | | | market editor LADONNA SCHOFIELD | | | | | | ([id number]) on 08/07/2019 | | | | | [...] | + +---------+ + + Protime INR (08/06/2019 3:46 AM PDT) + + [...] performed at [facility] | | | | | | [facility];[place], [place] | | | | | | [address] | | | | + + + + + + + + | Specimen | + + | Blood | + + + + + + + | Performing | Address | City/State/Zipcode | Phone Number | | Organization | | | | + + + + + | [facility] | [address] [facility] | [place] [address] | [phone] | + + + + + Troponin I (08/06/2019 3:46 AM PDT) + + + + + + | Component | Value | Ref Range | Performed | Pathologist | | | | | At | Signature | + + + + + + | Troponin I | 0.016Comment: 0.04 | 0.00 - 0.04 | [facility] | | | | ng/mL or [...] at | | | | | | [facility];[address];[place] [address] | | | | + + + + + + + + | Specimen | + + | Blood | + + + + + + + | Performing | Address | City/State/Zipcode | Phone Number | | Organization | | | | + + + + + | [facility] | [address] | [place] [address] | [phone] | + + + + + Comprehensive [...] | >60Comment: GFR <60: | >60 | [facility] | | | GFR | CHRONIC [...] | | | | | | MDRD IDFL traceable | | | | | | equation.Testing | | | | | | performed at [facility] | | | | | | [facility];[place], [place] | | | | | | [address] | | | | + + + + + + + + | Specimen | + + | Blood | + + + + + + + | Performing | Address | City/State/Zipcode | Phone Number | | Organization | | | | + + + + + | [facility] | [address] | [place] [address] | [phone] | + + + + + CBC [...] | | | Absolute | performed at [facility];[address] | LABORATORY | | | | [address];[place], [place] | | | | | | [address] | | | | + + + + + + + + | Specimen | + + | Blood | + + + + + + + | Performing | Address | City/State/Zipcode | Phone Number | | Organization | | | | + + + + + | [facility] | [address] | [place] [address] | [phone] | + + + + + documented [...]
--- OUTSIDE RECORDS SUMMARY | ~2019-10-12 | XMS | Encounter Summary ---
Demographics + + + | Address | [address] | | | [place] [address] | + + + | Home Phone [...] + | Sammi Kohler | ECON | [place] [address] | | + + + + + Care Team Providers + +------+ + | Care Mining Analyst Name | Role | Phone | + +------+ + PCP | Unavailable | + +------+ + Encounter Details +--------+ + + + + | Date | Type | Department | Care Team | Description | +--------+ + + + + | 07/09/ | Emergency | [facility] | Mik Kwong, | UTI (lower urinary | | 2015 | | [facility] | MD [address] | tract infection); | | | | EMERGENCY CENTER | [place] [address] | Malaise; Dysuria; | | | | [address] | [phone] | Anemia, unspecified | | | | [place], [place] | | anemia type; | | | | [address] | | Subtherapeutic | | | | [phone] | | international | | | | [...] Service: Emergency Department Author Type: Advanced Omar burgess Nurse Practitioner Filed: 07/09/14 0643 Date of Service: 07/09/14211 Status: Attested Logistics Management Specialist: CITLALY Morrow (Advanced Registered Nurse Practitioner) Cosigner: Mik Kwong MD at 07/09/142229 Attestation signed by Mik Kwong MD at 07/09/142229 I have reviewed the note and supervised the mid-level provider. Procedures [facility] Department of Emergency Medicine HPI History of Present Illness Patient Identification Kevyn Guzman is a 58 y.o. male. Patient information was obtained from patient. History/Exam limitations: none. Patient presented to the Emergency Department by: [facility] 1723 Chief Complaint Chief Complaint Patient presents with Generalized Body Aches The patient complains of generalized aches and dysuria. 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 per patient, with a [...] Depression Renal failure ARF (acute renal failure) ([facility]) 03/02/2013 COPD (chronic obstructive pulmonary disease) ([facility]) 03/02/2013 Development delay Unspecified visual disturbance reading [...] - CHOLECYSTECTOMY; Surgeon: Jevon Vargas DO; Location: [facility]; Service: General; Laterality: N/A; Abdominal surgery Cholecystectomy Skin cancer excision 10/10/2012 Procedure: EXCISION - SKIN CANCER; Surgeon: Sy Fierro MD; Location: [facility] ; Service: Plastics; Laterality: Left; upper arm and upper back w/frozen section Esophagogastroduodenoscopy 03/03/2013 Procedure: ESOPHAGOGASTRODUODENOSCOPY; Surgeon: Howie Gibson MD; Location: [facility]; S ervice: Gastroenterology; Laterality: N/A; Colonoscopy 03/04/2013 Procedure: COLONOSCOPY; Surgeon: Howie Gibson MD; Location: [facility]; Service: Gastroe nterology; Laterality: N/A; Upper gastrointestinal endoscopy Skin biopsy Hernia repair 07/03/2013 Procedure: LAPAROSCOPIC - HERNIA - INCISIONAL; Surgeon: Jevon Vargas DO; Location: [facility]; Service: General; Laterality: N/A; Skin lesion excision Left 05/05/2014 Procedure: EXCISION - LESION - FROZEN SECTION; Surgeon: Sy Fierro MD; Location: [facility]; Service: Plastics; Laterality: Left; forearm Prior to Admission medications Medication Sig Start Date End Date Taking? Authorizing Provider Albuterol Sulfate (VENTOLIN HFA IN) Inhale 2 puffs into the lungs as needed. 108 mcg/act Historical Provider Thqcc-G-Eyldovzgydxfv (BEANO) TABS Take 150 Units by mouth [...] 100 mg by mouth nightly. Historical Provider qgcydtdjb-kycstrmc-gvuhkzyvh hydroxide-simethicone Take 40 mLs by mouth daily [...] eatitis, gastritis, GERD, gastroenteritis, viral syndrome, influenza, NC, arrhythmia, ACS, p neumonia, acute renal failure, [...] Procedure Component Value Ref Range Date/Time Lipase [[id number]] Collected: 07/09/14322 Order Status: Completed Updated: 07/09/14342 Specimen Information: Blood LIPASE 121 73 - 393 U/L Cardiac Panel [[id number]] (Abnormal) Collected: 07/09/14322 Order Status: Completed Updated: [...] ng/mL CK-MB Index 1.4 Troponin I, Lab [[id number]] Collected: 07/09/14322 Order Status: Completed Updated: 07/09/14342 Specimen Information: Blood TROPONIN I <0.020 0.00 - 0.10 ng/mL Urine microscopic only [[id number]] (Abnormal) Collected: 07/09/14300 Order Status: Completed Updated: 07/09/14325 WBC 16-25 0 - 5 /hpf RBC 1-5 0 - 2 /hpf EPITHELIAL 6-10 /lpf BACTERIA TRACE (A) NONE SEEN Urinalysis Comments CULTURE TO FOLLOW Urinalysis (reflex to microscopic/reflex to culture) [[id number]] (Abnormal) Collected: 07/09/14300 Order Status: Completed Updated: 07/09/14325 Specimen Information: Urine, Clean Catch COLOR UA YELLOW CLARITY CLEAR Specific [place], UA 1.010 1.001 - 1.035 LEUKOCYTE ESTERASE [...] INR and plan [address] [place] [address] [facility] [id number] [facility] Emergency Department Return here for worsening symptoms as they have discussed [address] [facility] [id number] Discharge Medications: Discharge Medication List as of 07/09/2014 5:36 AM START taking these medications Details ciprofloxacin (CIPRO) 500 MG tablet Take 1 tablet by mouth 2 (two) times daily., Starting , Until 07/12/14, Print CITLALY Rosario 07/09/14 0657 Mik Kwong MD 07/09/14 1863 onversion Chin ledesma, Provider Unknown - 07/09/2014 2:09 AM PDT ED Notes by Elroy Nowak RN at 07/09/14208 Author: Elroy Nowak RN Service: (none) Author Type: Registered Nurse Filed: 07/09/14208 Date of Service: 07/09/14208 Status: Signed Logistics Management Specialist: Elroy Nowak RN (Registered Nurse) Bed: [facility] Expected date: Expected time: Means of arrival: [...] | | | | | [place], | | | | | | [place] [address] | | | | | | [phone] | | | | | | | [...] | | | | | | editor news ZAYNAB HUNT | | | | | | (4) on 07/09/2014 1:23:46 | | | | | | PM | | | | + + + + + + + + | Specimen | + + | | + + + + + | Narrative | Performed At | + + + | Historically converted procedure from [facility] environment | EXTERNAL LAB | + [...] [place] | | | | | | [address] | | | | + + + + + -+ | Non- | 4.82Comment: Testing | 4.20 - 5.70 | EXTERNAL | | | Red Blood | performed at [facility];888 | M/uL | LAB | | | Cells | [address];[place] | | | | | Counted | [address] | | | | + + + + + -+ | Hemoglobin | 12.3 (L)Comment: Testing | 13.2 - 17.0 | EXTERNAL | | | | performed at [facility];888 | g/dL | LAB | | | | [address];[place] | | | | | | [address] | | | | + + + + + -+ | Hematocrit, | 37.7 (L)Comment: Testing | 39.0 - 50.0 % | EXTERNAL | | | POC | performed at [facility];888 | | LAB | | | | [address];[place] | | | | | | [address] | | | | + + + + + -+ | MCV | 78.3 (L)Comment: Testing | 80.0 - 100.0 fl | EXTERNAL | | | | performed at [facility];888 | | LAB | | | | [address];[place] | | | | | | [address] | | | | + + + + + -+ | MCH | 25.5 (L)Comment: Testing | 27.0 - 34.0 pg | EXTERNAL | | | | performed at [facility];[address] | | LAB | | | | [address];[place] | | | | | | [address] | | | | + + + + + -+ | MCHC | 32.6Comment: Testing | 32.0 - 35.5 | EXTERNAL | | | | performed at [facility];888 | g/dL | LAB | | | | [address];[place] | | | | | | [address] | | | | + + + + + -+ | RDW-CV | 46.4Comment: Testing | 37 - 53 fl | EXTERNAL | | | | performed at [facility];888 | | LAB | | | | [address];[place] | | | | | | [address] | | | | + + + + + -+ | Platelet | 254Comment: Testing | 150 - 400 K/uL | EXTERNAL | | | Count | performed at [facility];888 | | LAB | | | Plasma | [address];[place] | | | | | | [address] | | | | + + + + + -+ | MPV | 7.5Comment: Testing | fl | EXTERNAL | | | | performed at [facility];888 | | LAB | | | | [address];[place] | | | | | | [address] | | | | + + + + + -+ | Differentia | AUTOMATEDComment: | | EXTERNAL | | | l Type | Testing performed at | | LAB | | | | [facility];[address] | | [address];[place] [address] | | | | + + + + + -+ | % Segmented | 60.90Comment: Testing | % | EXTERNAL | | | | performed at [facility];888 | | LAB | | | Neutrophils | [address];[place] | | | | | | [address] | | | | + + + + + -+ | % | 25.10Comment: Testing | % | EXTERNAL | | | Lymphocytes | performed at [facility];888 | | LAB | | | | [address];[place] | | | | | | [address] | | | | + + + + + -+ | % Monocytes | 11.37Comment: Testing | % | EXTERNAL | | | | performed at [facility];[address] | | LAB | | | | [address];[place] | | | | | | [address] | | | | + + + + + -+ | % | 2.04Comment: Testing | % | EXTERNAL | | | Eosinophils | performed at [facility];[address] | | LAB | | | | [address];[place] | | | | | | [address] | | | | + + + + + -+ | % Basophils | 0.59Comment: Testing | % | EXTERNAL | | | | performed at [facility];888 | | LAB | | | | [address];[place] | | | | | | [address] | | | | + + + + + -+ | Absolute | 5.68Comment: Testing | 1.90 - 7.40 | EXTERNAL | | | Segmented | performed at [facility];888 | K/uL | LAB | | | Neutrophils | [address];[place] | | | | | | [address] | | | | + + + + + -+ | Absolute | 2.34Comment: Testing | 1.00 - 3.90 | EXTERNAL | | | Lymphocytes | performed at [facility];888 | K/uL | LAB | | | | [address];[place] | | | | | | [address] | | | | + + + + + -+ | Absolute | 1.06 (H)Comment: Testing | 0.00 - 0.80 | EXTERNAL | | | Monocytes | performed at [facility];888 | K/uL | LAB | | | | [address];[place] | | | | | | [address] | | | | + + + + + -+ | Absolute | 0.19Comment: Testing | 0.00 - 0.50 | EXTERNAL | | | Eosinophils | performed at [facility];888 | K/uL | LAB | | | | [address];[place] | | | | | | [address] | | | | + + + + + -+ | Absolute | 0.06Comment: Testing | 0.00 - 0.10 | EXTERNAL | | | Basophils | performed at [facility];888 | K/uL | LAB | | | | [address];[place] | | | | | | [address] | | | | + + + + + -+ | Na | 142Comment: Testing | 135 - 143 | EXTERNAL | | | | performed at [facility];888 | mmol/L | LAB | | | | [address];[place] | | | | | | [address] | | | | + + + + + -+ | K | 3.4 (L)Comment: Testing | 3.5 - 4.9 | EXTERNAL | | | | performed at [facility];888 | mmol/L | LAB | | | | [address];[place] | | | | | | [address] | | | | + + + + + -+ | Cl | 107Comment: Testing | 99 - 109 mmol/L | EXTERNAL | | | | performed at [facility];888 | | LAB | | | | [address];[place] | | | | | | [address] | | | | + + + + + -+ | CO2 | 31Comment: Testing | 23 - 32 mmol/L | EXTERNAL | | | | performed at [facility];888 | | LAB | | | | [address];[place] | | | | | | [address] | | | | + + + + + -+ | Anion Gap | 8Comment: Testing | 5 - 20 mmol/L | EXTERNAL | | | | performed at [facility];888 | | LAB | | | | [address];[place] | | | | | | [address] | | | | + + + + + -+ | Glucose, | 100 (H)Comment: Testing | 65 - 99 mg/dL | EXTERNAL | | | Fasting | performed at [facility];888 | | LAB | | | | [address];[place] | | | | | | [address] | | | | + + + + + -+ | BUN | 12Comment: Testing | 8 - 25 mg/dL | EXTERNAL | | | | performed at [facility];888 | | LAB | | | | [address];[place] | | | | | | [address] | | | | + + + + + -+ | Creatinine | 1.04Comment: Testing | 0.70 - 1.30 | EXTERNAL | | | | performed at [facility];888 | mg/dL | LAB | | | | [address];[place] | | | | | | [address] | | | | + + + [...] [place] | | | | | | [address] | | | | + + + + + -+ | Protein, | 7.1Comment: Testing | 6.3 - 8.2 g/dL | EXTERNAL | | | Total | performed at [facility];888 | | LAB | | | | [address];[place] | | | | | | [address] | | | | + + + + + -+ | Albumin | 3.5 (L)Comment: Testing | 3.6 - 5.0 g/dL | EXTERNAL | | | | performed at [facility];[address] | | LAB | | | | [address];[place] | | | | | | [address] | | | | + + + + + -+ | Globulin | 3.7Comment: Testing | 1.3 - 4.9 g/dL | EXTERNAL | | | | performed at [facility];888 | | LAB | | | | [address];[place] | | | | | | [address] | | | | + + + + + -+ | A/G Ratio | 0.9 (L)Comment: Testing | 1.0 - 2.4 | EXTERNAL | | | | performed at [facility];[address] | | LAB | | | | [address];[place] | | | | | | [address] | | | | + + + [...] [place] | | | | | | [address] | | | | + + + + + -+ | AST | 26Comment: Testing | 10 - 45 U/L | EXTERNAL | | | | performed at [facility];[address] | | LAB | | | | [address];[place] | | | | | | [address] | | | | + + + + + -+ | ALT | 21Comment: Testing | 10 - 65 U/L | EXTERNAL | | | | performed at [facility];[address] | | LAB | | | | [address];[place] | | | | | | [address] | | | | + + + [...] | | | | | Blvd;[place] [address] | | | | + + + + + -+ | CK, Total | 211Comment: Testing | 55 - 400 U/L | EXTERNAL | | | | performed at [facility];[address] | | LAB | | | | [address];[place] | | | | | | [address] | | | | + + + [...] [place] | | | | | | [address] | | | | + + + + + -+ | aPTT, | 30Comment: Testing | 23 - 32 seconds | EXTERNAL | | | Patient | performed at [facility];[address] | | LAB | | | | [address];[place] | | | | | | [address] | | | | + + + + + -+ | CK-MB | 3.0Comment: Testing | 0.5 - 3.6 ng/mL | EXTERNAL | | | | performed at [facility];[address] | | LAB | | | | [address];[place] | | | | | | [address] | | | | + + + [...] | | | | | | ACUTE NC Testing | | | | | | performed at [facility];[address] | | | | | | [facility];[place], [place] | | | | | | [address] | | | | + + + [...] LAB | | | | [address];[place] | | | | | | [address] | | | | + + + [...] WORKUP | | | Testing performed at [facility], [address], | | | [place] [address] | | + + + + +---------+ [...] [place] | | | | | | [address] | | | | + + + + + + | Clarity, | CLEARComment: Testing | | EXTERNAL | | | Urine | performed at [facility];[address] | | LAB | | | | [address];[place] | | | | | | [address] | | | | + + + + + + | Specific | 1.010Comment: Testing | 1.001 - 1.035 | EXTERNAL | | | [place], | performed at [facility];888 | | LAB | | | Urine | [address];[place] | | | | | | [address] | | | | + + + + + + | Leukocyte | SMALL (A)Comment: | | EXTERNAL | | | Esterase, | Testing performed at | | LAB | | | Urine | [facility];[address] | | [address];[place] [address] | | | | + + + + + + | Nitrite, | NEGATIVEComment: Testing | | EXTERNAL | | | Urine | performed at [facility];[address] | | LAB | | | | [address];[place] | | | | | | [address] | | | | + + + + + + | Urobilinoge | 0.2Comment: Testing | mg/dL | EXTERNAL | | | n, Urine | performed at [facility];[address] | | LAB | | | | [address];[place] | | | | | | [address] | | | | + + + + + + | Protein, | NEGATIVEComment: Testing | mg/dL | EXTERNAL | | | Urine | performed at [facility];888 | | LAB | | | | [address];[place] | | | | | | [address] | | | | + + + + + + | pH, Urine | 6.5Comment: Testing | 4.6 - 8.0 | EXTERNAL | | | | performed at [facility];[address] | | LAB | | | | [address];[place] | | | | | | [address] | | | | + + + + + + | Blood, | NEGATIVEComment: Testing | | EXTERNAL | | | Urine | performed at [facility];888 | | LAB | | | | [address];[place] | | | | | | [address] | | | | + + + + + + | Ketones | NEGATIVEComment: Testing | mg/dL | EXTERNAL | | | | performed at [facility];[address] | | LAB | | | | [address];[place] | | | | | | [address] | | | | + + + + + + | Bilirubin, | NEGATIVEComment: Testing | | EXTERNAL | | | Urine | performed at [facility];888 | | LAB | | | | [address];[place] | | | | | | [address] | | | | + + + + + + | Glucose, | NEGATIVEComment: Testing | mg/dL | EXTERNAL | | | Urine | performed at [facility];[address] | | LAB | | | | [address];[place] | | | | | | [address] | | | | + + + [...] [place] | | | | | | [address] | | | | + + + + + + | Epithelial | 6-10Comment: Testing | /lpf | EXTERNAL | | | Cells | performed at [facility];[address] | | LAB | | | | [address];[place] | | | | | | [address] | | | | + + + + + + | Bacteria, | TRACE (A)Comment: | | EXTERNAL | | | UA | Testing performed at | | LAB | | | | [facility];[address];[place] [address] | | | | + + + + + + | Urinalysis | CULTURE TO | | EXTERNAL | | | Comments | FOLLOWComment: Testing | | LAB | | | | performed at [facility];[address] | | | | | | [address];[place] | | | | | | [address] | | | | + + + [...]
--- OUTSIDE RECORDS SUMMARY | ~2019-10-12 | XMS | Encounter Summary ---
Demographics + + + | Address | [address] | | | [place] [address] | + + + | Home Phone [...] + | Sammi Kohler | ECON | [place] [address] | | + + + + + Care Team Providers + +------+ + | Care Insurance Sales Supervisor Name | Role | Phone | [...] + + | 07/17/ | Telephone | SAMY ANDREWS | Lucia Amos | Other | | 2020 | | [facility] [address] | | | | | [address] | | | | | | [place] | | | | | | [address] | | | | | | [phone] | | | +--------+ + + + [...] - 07/18/2019 11:49 AM PDTCall received from [facility] staff Mel, vital signs are 180/78, HR [...] he is making too much money. Spendi kallie 411 on his monthly rent and paying hospital bills and other stuff. Informed HH Mel booth PCP's message that she agrees with HH calling [facility] regarding patient. She will also ask their EMERGENCY DEPARTMENT MANAGER to visit patient in case EMERGENCY DEPARTMENT MANAGER might know of something that can help [...] | | | | | [place], | | | | | | [place] [address] | | | | | | [phone] | | | | | | | [...]
--- OUTSIDE RECORDS SUMMARY | ~2019-10-12 | XMS | Encounter Summary ---
Demographics + + + | Address | [address] | | | [place] [address] | + + + | Home Phone [...] + | Sammi Kohler | ECON | [place] [address] | | + + + + + Care Team Providers + +------+ + | Care Welt Treater Name | Role | Phone | + [...] | | | Irregular | [address] | [place], [place] | | | | | bowel habits | [place], [place] | [address] | | | | | | [address] | Phone: | | | | | | Phone: | [phone] | | | | | | [phone] | Fax: | | | | | | Fax: | [phone] | | | | | | [phone] | | + + + + + [...] | | | | | [address] | [place], [place] | | | | | | [place] | [address] | | | | | | [address] | Phone: | | | | | | Phone: | [phone] | | | | | | [phone] | Fax: | | | | | | Fax: | [phone] | | | | | | [phone] | | + + + + + + + Evaluate & Treat (Routine) +--------+ + + + + + | Status | Reason | Specialty | Diagnoses / | Referred By | Referred To | | | | | Procedures | Contact | Contact | +--------+ + + + + + | Closed | Specialty | Urology | Diagnoses | Holgado, | [facility] | | | Services | | BPH with | Mireya Calixto, SOLUTION DESIGNER | [address] | | | Required | | obstruction/ | [address] | | | | | lower | [address] | [place], [place] | | | | | urinary | [address] | [address] | | | | | tract | [place], [place] | Phone: | | | | | symptoms | [address] | [phone] | | | | | | Phone: | Fax: | | | | | | [phone] | [phone] | | | | | | Fax: | | | | | | | [phone] | | +--------+ + + + + + Encounter Details +--------+---------+ + + + | Date | Type | Department | Care Team | Description | +--------+---------+ + + + | 12/26/ | Office | [facility] | Mireya Pack, | Paroxysmal atrial | | 2019 | Visit | [facility] [address] | SOLUTION DESIGNER [address] | fibrillation (HCC) | | | | [address] | [address] [place], | (Primary Dx); | | | | [place], [place] | [place] [address] | Essential | | | | [address] | [phone] | hypertension; Type 2 | | | | [phone] | | diabetes mellitus | | | [...] of this encounter Patient Instructions Patient Instructions Mierya Pack NP - 12/26/2018 12:30 PM PSTIncrease your levemir: - insulin detemir (LEVEMIR FLEXTOUCH) 100 units/mL injection (pen); Inject 60 Units und er the skin nightly. Call if your morning blood sugars < 100 Sent order to your pharmacy to Stop pravastatin Start - atorvaSTATin (LIPITOR) 40 mg tablet; Take 1 tablet by mouth nightly. Start taking acid equestrian trainer for the pain in chest area (may be heartburn): (rx sent to pharmacy) - omeprazole (PRILOSEC) 20 mg capsule; Take 1 capsule by mouth every morning (before br eakfast). BPH with obstruction/lower urinary tract symptoms - Ambulatory Referral to [facility] Skin cancer screening - Ambulatory referral to [facility] Colon cancer screening - Ambulatory Referral to [facility] documented in this encounter Progress Notes Mireya Pack NP - 12/26/2018 12:30 PM PSTFormatting of this note might be different fr om the original. Subjective: Patient ID: Kevyn Guzman is a 63 y.o. male Patient presents for hospitalization at [facility] 12/12/18-12/13/18 presented for chest pain. Hosp [...] lik charisse GERD. Patient presented back to [facility] ED 12/13/18 for c/o palpitations and heaviness in chest. ECG: Sinus rhythm at 77 bpm. NE, QRS, and axis are normal. No ST [...] - CHOLECYSTECTOMY; Surgeon: Jevon Vargas DO; Location: [facility] MAIN OR; Service: General; Laterality: N/A; COLONOSCOPY COLONOSCOPY 03/04/2013 Procedure: COLONOSCOPY; Surgeon: Howie Gibson MD; Location: [facility] ENDOSCOPY; Service: Gastroen terology; Laterality: N/A; HERNIA REPAIR 07/03/2013 Procedure: LAPAROSCOPIC - HERNIA - INCISIONAL; Surgeon: Jevon Vargas DO; Location: [facility] MAIN OR; Service: General; Laterality: N/A; KNEE SURGERY rt knee, patella LEG SURGERY LLE OTHER SURGICAL HISTORY UNLISTED PROCEDURE ARTHROSCOPY OTHER SURGICAL HISTORY Left 05/05/2014 SKIN LESION EXCISION - Procedure: EXCISION - LESION - FROZEN SECTION; Surgeon: Sy murcia MD; Location: [facility] MAIN OR; Service: Plastics; Laterality: Left; forearm SKIN BIOPSY SKIN CANCER EXCISION Left 10/10/2012 Procedure: EXCISION - SKIN CANCER; Surgeon: Sy Fierro MD; Location: [facility] MAIN OR; Service: Plastics; Laterality: Left; upper arm and upper back w/frozen section UPPER GASTROINTESTINAL ENDOSCOPY UPPER GASTROINTESTINAL ENDOSCOPY 03/03/2013 Procedure: ESOPHAGOGASTRODUODENOSCOPY; Surgeon: Howie Gibson MD; Location: [facility] ENDOSCOPY; rvice: Gastroenterology; Laterality: N/A; Social [...] Lives alone x 1 wk, moved from [facility], , 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 2 [...] 11.0 (H) 10/14/2018 No components found for: [id number], PTHINT No results found for: [id number] No results found for: TSH, T4 No [...] urinary tract symptoms - Ambulatory Referral to [facility] Gastroesophageal reflux disease, esophagitis presence not specified Start ppi gi proph Skin cancer screening - Ambulatory referral to [facility] Need for hepatitis C screening test - Hepatitis C Ab; Future Colon cancer screening - Ambulatory Referral to [facility] Irregular bowel habits - Ambulatory Referral to [facility] Other orders - omeprazole (PRILOSEC) 20 [...] [place], | | | | | | [place] [address] | | | | | | [phone] | | | | | | | [...] with | Ordered: 12/26/2018 | | to [facility] | Referral | e | obstruction/lower | | | | | | urinary tract | | | | | | symptoms | | + + +--------+ + + | Ambulatory referral | Outpatient | Routin | Skin cancer | Ordered: 12/26/2018 | | to [facility] | Referral | e | screening | | | Dermatology | | | | | + + +--------+ + + | Ambulatory Referral | Outpatient | Routin | Colon cancer | Ordered: 12/26/2018 | | to [facility] | Referral | e | screening Irregular [...]
--- OUTSIDE RECORDS SUMMARY | ~2019-10-12 | XMS | Encounter Summary ---
Demographics + + + | Address | [address] | | | [place] [address] | + + + | Home Phone [...] | Author | [facility] | | | and [place] | + + + | Organization | [facility] | | | and [place] | + + + | Address | Unknown | + + + | Phone | Unavailable | + + + Support + + + + + | Name | Relationship | Address | Phone | + + + + + | Sammi Kohler | ECON | [place] [address] | | + + + + + Care Team Providers + +------+ + | Care New Car Get Ready Mechanic Name | Role | Phone | + +------+ + PCP | Unavailable | + +------+ + Encounter Details +--------+ + + + + | Date | Type | Department | Care Team | Description | +--------+ + + + + | 12/11/ | Emergency | [facility] | Norah Calvo, | Chest pain, | | 2015 | | [facility]ICAL CENTER | MD [address] | unspecified chest | | | | EMERGENCY CENTER | [place] [address] | pain type | | | | [address] | [phone] | | | | | [place], [place] | | | | | | [address] | | | | | | [phone] | | | +--------+ + + + [...] encounter ED Notes Norah Calvo MD - 12/11/2014 3:35 AM PSTFormatting of this note might be different fro m the original. ED Provider Notes by Norah Calvo MD at 12/11/14334 Author: Norah Calvo MD Service: (none) Author Type: Physician Filed: 12/11/14722 Date of Service: 12/11/14334 Status: Signed Arch Support Maker: Norah Calvo MD (Physician) [facility] Department of Emergency Medicine 3:35 AM History of Present Illness Patient Identification Norah Gr is a 58 y.o. male. Patient information was obtained from patient. History/Exam limitations: none. Patient presented to the Emergency Department by: Car Chief Complaint Chief Complaint Patient presents with Chest Pain Shortness of Breath Shaking The patient presents to ED with complaints of chills, diarrhea, and sharp pain in his ches in the center of his chest. Onset of sx with today's episode beginning at 3AM with a mildl y resolved course since that time. Pt states he has this pain frequently and that today's pa in feels similar. He has had several cardiac workups in the past with no acute cardiopatholo gy. A cardiac catheterization in July 2013 showed unremarkable coronary arteries. A recent stress tests performed here was also unremarkable. He currently rates his pain a 1/10 whic h has improved from a 4/10. Pt reports he attempted to drink water and he spit it up. Pt oliva es alone and has many prior ED visits for similar and unrelated complaints. No known care PT A. PCP: JERRELL GUTIÉRREZ Past Medical History Diagnosis [...] lungs as needed. 108 mcg/act Historical Provider Fiwyj-Q-Afbhmyjbrfgml (BEANO) TABS Take 150 Units by mouth [...] 100 mg by mouth nightly. Historical Provider fhkggikea-ptceopnj-swcticgwz hydroxide-simethicone Take 40 mLs by mouth daily [...] [facility] 10/16/14 12/15/14 CIT[facility] Romo warfarin (COUMADIN) 5 MG tablet Take 1 tablet by mouth daily. 12/05/14 12/10/14 Breanne rondon, Allergies Allergen Reactions Vitamin B12 Rash History Social History Marital Status: Spouse Name: N/A Number of Children: 1 Years of Education: s. [employer] Occupational History disabled Social History Main Topics Smoking status: Never Smoker Smokeless tobacco: Never Used Alcohol Use: 0.0 oz/week 1-2 Cans of beer per week Comment: once week, occasionally Drug Use: No Sexual Activity: Not Currently Other Topics Concern Not on file Social History Narrative Lives alone x 1 wk, moved from [facility], , 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 2 falls in the last 6 months. Family History Problem Relation Age of Onset Heart disease Father Heart disease Sister Diabetes type II Sister Heart Problems Brother Review of Systems Constitutional: Negative for fever, chills Eyes: Negative for vision changes ENT: Negative for earache CV Positive for chest pain, Resp: Negative for rllmosusw-ms-hmfgke, cough GI: Positive for vomiting, spitting up Negative for abdominal pain, nausea, or diarrhea : Negative for urinary problems Musculoskeletal: Negative for back pain, joint pain Skin: Negative for rash Neuro/Psych: Negative for headache Other systems reviewed and negative except as noted. Physical Exam BP 180/86 mmHg | Pulse 77 | Temp(Src) 98 F (36.7 C) (Oral) | Resp 18 | Ht 1.803 m (5' 1 1") | Wt 106.142 kg (234 lb) | BMI 32.65 kg/m2 | SpO2 97% Vital signs interpretation: hypertensive, otherwise normal Pulse Oximetry interpretation: Normal General: Alert, in no apparent distress Eyes: Normal inspection, pupils equal and round, non-icteric ENT: Ears normal Nose normal Moist mucous membranes, no intraoral lesions Neck: Normal inspection, Supple CV: Rate and rhythm normal, no murmurs Respiratory: Lungs clear to auscultation bilaterally, Normal WOB Abdomen: Soft, non-tender, non-distended, No rebound or guarding Ext: No edema or trauma noted Skin: Warm and dry, No rash Neuro: Normal facial symmetry No gross motor/sensory deficits Medical Decision Making and Emergency Department Course ED Department Course Patient presents to ED with complaints of chest pain. On exam the patient has no acute abno rmalities. Will order cardiac panel, CXR, EKG and reevaluate the patient. Labs reviewed, unremarkable except for the pt's chronic anemia 5:02 AM Pt rechecked and he states he has work at 5:30 AM and would like to be discharged. I discussed with him my desire to have him stay for an additional troponin as we have not c ompleted a full cardiac workup. Patient does not want to stay at this time. Given his rece nt negative cardiac workup I do feel that the patient can be safely discharged. I advised h im to return for worsening symptoms. Patient is stable and ready or discharge. I discussed all ED results and my clinical impres ivana with the patient. Patient is ready for discharge. I advised patient to follow up with a PCP and we discussed the emergent signs and symptoms that would necessitate a return to ED. All questions and concerns addressed. The pt understands and agrees with the plan for d/c. Filed Vitals: 12/11/14 0326 12/11/14 0500 BP: 180/86 184/80 Pulse: 77 90 Temp: 98 F (36.7 C) TempSrc: Oral Resp: 18 18 Height: 1.803 m (5' 11") Weight: 106.142 kg (234 lb) SpO2: 97% 97% Records Reviewed Old medical records. 11/22 for chest pain 12/05 for facial numbness Laboratory Evaluation Results Procedure Component Value Ref Range Date/Time Cardiac Panel [[id number]] (Abnormal) Collected: 12/11/14357 Order Status: Completed Updated: 12/11/14429 WBC 8.55 3.80 - 11.00 K/uL RBC 4.94 4.20 - 5.70 M/uL HGB 11.9 (L) 13.2 - 17.0 g/dL HCT 37.9 (L) 39.0 - 50.0 % MCV 76.7 (L) 80.0 - 100.0 fl MCH 24.1 (L) 27.0 - 34.0 pg MCHC 31.3 (L) 32.0 - 35.5 g/dL RDW SD 43.3 37 - 53 fl PLT 280 150 - 400 K/uL MPV 7.4 fl DIFF TYPE AUTOMATED NEUTROPHILS 51.78 % LYMPHOCYTES 32.94 % MONOCYTES 9.92 % EOSINOPHILS 4.26 % BASOPHILS 1.10 % NEUTROPHILS ABS 4.43 1.90 - 7.40 K/uL LYMPHOCYTES ABS 2.82 1.00 - 3.90 K/uL MONOCYTES ABS 0.85 (H) 0.00 - 0.80 K/uL EOSINOPHILS ABS 0.36 0.00 - 0.50 K/uL BASOPHILS ABS 0.09 0.00 - 0.10 K/uL MORPHOLOGY 1+ Platelet Estimate ADEQUATE SODIUM 141 135 - 143 mmol/L POTASSIUM 3.8 3.5 - 4.9 mmol/L CHLORIDE 108 99 - 109 mmol/L CO2 27 23 - 32 mmol/L ANION GAP AGAP 10 5 - 20 mmol/L GLUCOSE 175 (H) 65 - 99 mg/dL BUN 17 8 - 25 mg/dL CREATININE 0.86 0.70 - 1.30 mg/dL BUN/CREAT 19 CALCIUM 8.7 8.5 - 10.5 mg/dL TOTAL PROTEIN 6.9 6.3 - 8.2 g/dL Albumin 3.0 (L) 3.6 - 5.0 g/dL GLOBULIN 3.9 1.3 - 4.9 g/dL A/G 0.8 (L) 1.0 - 2.4 TBIL 0.3 0.1 - 1.5 mg/dL ALK PHOS 106 35 - 115 U/L AST 18 10 - 45 U/L ALT 21 10 - 65 U/L EGFR >60 >60 mL/min/1.73m2 CPK 170 55 - 400 U/L INR 1.1 APTT 27 23 - 32 seconds MMB 3.2 0.5 - 3.6 ng/mL CK-MB Index 1.9 POC cardiac troponin [[id number]] Collected: 12/11/14399 Order Status: Completed Updated: 12/11/14414 POC CARDIAC TROPONIN 0.01 0.00 - 0.10 ng/mL I personally reviewed the lab results and they have been posted to the chart. Pertinent po sitive and negative findings have been addressed appropriately. Radiology and EKG Evaluation Imaging Results XR Chest PA and Lateral (Final result) Result time: 12/11/14 06:55:46 Final result by Rad Results In Richard (12/11/14 06:55:46) Impression: No acute cardiopulmonary abnormality Narrative: NORAH GR 1955 58 years Male XR CHEST 2 VIEW FRONTAL AND LATERAL 12/11/2014 4:23 AM INDICATION: Chest pain COMPARISON: December 04, 2014 TECHNIQUE: Two view chest, PA and lateral views FINDINGS: Lungs are clear. No pleural effusion, no pneumothorax. Heart size is normal. Mediastinal contours are normal. No acute osseous abnormality. EKG at 0323 Sinus rhythm Rate 68 BPM QRS 80 No signs of acute ischemia ED Diagnosis Final diagnosis Chest pain, unspecified chest pain type Disposition: ED Disposition Discharge Condition at discharge: Stable Follow-up Information Follow up With Details Comments Contact Info Jerrell Gutiérrez, DO As needed [address] [place] [address] [facility] Emergency Department If symptoms worsen [address] [facility] [phone] Discharge Medications: Discharge Medication List as of 12/11/2014 5:04 AM Dictation software, [employer], used which may contain error for similar sounding words even af ter review. Personal communication requested for any clarification. Procedures Additional Documentation Procedures Attending Note: Documentation assistance provided by Tara Miller (Scribe). Information recorded by the scribe has been reviewed and validated by me. Troy laughlin with its contents. Norah Calvo MD 12/11/14 0723 documented in this e ncounter Plan of Treatment +--------+ + + + + | Date | Type | Specialty | Care Team | Description | +--------+ + + + + | 10/16/ | Anti-coag | Anticoagulation | Brittany Zaragoza | | | 2020 | visit | | CIT[facility]Y [address] | | | | | | [facility], | | | | | | [place] [address] | | | | | | [phone] | | | | | | | | +--------+ + + + + documented as of this encounter Procedures + +--------+ + + + | Procedure Name | Priori | Date/Time | Associated Diagnosis | Comments | | | ty | | | | + +--------+ + + + | XR CHEST 2 VIEWS | Routin | 12/11/2014 | | Results for this | | | e | 4:23 AM | | procedure are in the | | | | PST | | results section. | + +--------+ + + + | HISTORICAL LAB PANEL | Routin | 12/11/2014 | | Results for this | | RESULT | e | 3:58 AM | | procedure are in the | | | | PST | | results section. | + +--------+ + + + | ECG 12 LEAD | Routin | 12/11/2014 | | Results for this | | | e | 3:23 AM | | procedure are in the | | | | PST | | results section. | + +--------+ + + + documented in this encounter Results XR Chest 2 Vws (12/11/2014 4:23 AM PST) + + | Specimen | [...] VIEW FRONTAL | | | AND LATERAL 12/11/2014 4:23 AM INDICATION: Chest pain | | | COMPARISON: December 04, 2014 TECHNIQUE: Two view chest, PA [...] 2 VIEW FRONTAL AND LATERAL | | 12/11/2014 4:23 AM | | | | INDICATION: Chest pain | | | | COMPARISON: December 04, 2014 | | | | TECHNIQUE: Two [...] | + + HISTORICAL LAB PANEL RESULT (12/11/2014 3:58 AM PST) + + + + + + | Component | Value | Ref Range | Performed | Pathologist | | | | | At | Signature | + + + + + + | WBC | 8.55Comment: Testing | 3.80 - 11.00 | EXTERNAL | | | | performed at [facility];[address] | K/uL | LAB | | | | [address];[place] | | | | | | [address] | | | | + + + + + + | Non- | 4.94Comment: Testing | 4.20 - 5.70 | EXTERNAL | | | Red Blood | performed at [facility];[address] | M/uL | LAB | | | Cells | [address];[place] | | | | | Counted | [id number] | | | | + + + + + + | Hemoglobin | 11.9 (L)Comment: Testing | 13.2 - 17.0 | EXTERNAL | | | | performed at [facility];[address] | g/dL | LAB | | | | [address];[place] | | | | | | [address] | | | | + + + + + + | Hematocrit, | 37.9 (L)Comment: Testing | 39.0 - 50.0 % | EXTERNAL | | | POC | performed at [facility];[address] | | LAB | | | | [address];[place] | | | | | | [address] | | | | + + + + + + | MCV | 76.7 (L)Comment: Testing | 80.0 - 100.0 fl | EXTERNAL | | | | performed at [facility];[address] | | LAB | | | | [address];[place] | | | | | | [address] | | | | + + + + + + | MCH | 24.1 (L)Comment: Testing | 27.0 - 34.0 pg | EXTERNAL | | | | performed at [facility];[address] | | LAB | | | | [address];[place] | | | | | | [address] | | | | + + + + + + | MCHC | 31.3 (L)Comment: Testing | 32.0 - 35.5 | EXTERNAL | | | | performed at [facility];[address] | g/dL | LAB | | | | [address];[place] | | | | | | [address] | | | | + + + + + + | RDW-CV | 43.3Comment: Testing | 37 - 53 fl | EXTERNAL | | | | performed at [facility];[address] | | LAB | | | | [address];[place] | | | | | | [address] | | | | + + + + + + | Platelet | 280Comment: Testing | 150 - 400 K/uL | EXTERNAL | | | Count | performed at [facility];[address] | | LAB | | | Plasma | [address];[place] | | | | | | [address] | | | | + + + + + + | MPV | 7.4Comment: Testing | fl | EXTERNAL | | | | performed at [facility];[address] | | LAB | | | | [address];[place] | | | | | | [address] | | | | + + + + + + | Differentia | AUTOMATEDComment: | | EXTERNAL | | | l Type | Testing performed at | | LAB | | | | [facility];[address];[place] [address] | | | | + + + + + + | % Segmented | 51.78Comment: Testing | % | EXTERNAL | | | | performed at [facility];[address] | | LAB | | | Neutrophils | [address];[place] | | | | | | [address] | | | | + + + + + + | % | 32.94Comment: Testing | % | EXTERNAL | | | Lymphocytes | performed at [facility];[address] | | LAB | | | | [address];[place] | | | | | | [address] | | | | + + + + + + | % Monocytes | 9.92Comment: Testing | % | EXTERNAL | | | | performed at [facility];[address] | | LAB | | | | [address];[place] | | | | | | [address] | | | | + + + + + + | % | 4.26Comment: Testing | % | EXTERNAL | | | Eosinophils | performed at [facility];[address] | | LAB | | | | [address];[place] | | | | | | [address] | | | | + + + + + + | % Basophils | 1.10Comment: Testing | % | EXTERNAL | | | | performed at [facility];[address] | | LAB | | | | [address];[place] | | | | | | [address] | | | | + + + + + + | Absolute | 4.43Comment: Testing | 1.90 - 7.40 | EXTERNAL | | | Segmented | performed at [facility];[address] | K/uL | LAB | | | Neutrophils | [address];[place] | | | | | | [address] | | | | + + + + + + | Absolute | 2.82Comment: Testing | 1.00 - 3.90 | EXTERNAL | | | Lymphocytes | performed at [facility];[address] | K/uL | LAB | | | | [address];[place] | | | | | | [address] | | | | + + + + + + | Absolute | 0.85 (H)Comment: Testing | 0.00 - 0.80 | EXTERNAL | | | Monocytes | performed at [facility];[address] | K/uL | LAB | | | | [address];[place] | | | | | | [address] | | | | + + + + + + | Absolute | 0.36Comment: Testing | 0.00 - 0.50 | EXTERNAL | | | Eosinophils | performed at [facility];[address] | K/uL | LAB | | | | [address];[place] | | | | | | [address] | | | | + + + + + + | Absolute | 0.09Comment: Testing | 0.00 - 0.10 | EXTERNAL | | | Basophils | performed at [facility];[address] | K/uL | LAB | | | | [address];[place] | | | | | | [address] | | | | + + + + + + | RBC | 1+Comment: | | EXTERNAL | | | Morphology | MICRO1+HYPONORMAL PLT | | LAB | | | | MORPHTesting performed | | | | | | at [facility];[address] | | | | | | [address];[place] [address] | | | | | |NORMAL PLT MORPH | | | | | |Testing performed at [facility];[address];[place] [address] | | | | | | | | | | + + + + + + | Platelet | ADEQUATEComment: Testing | | EXTERNAL | | | Estimate | performed at [facility];[address] | | LAB | | | | [address];[place] | | | | | | [address] | | | | + + + + + + | Na | 141Comment: Testing | 135 - 143 | EXTERNAL | | | | performed at [facility];[address] | mmol/L | LAB | | | | [address];[place] | | | | | | [address] | | | | + + + + + + | K | 3.8Comment: Testing | 3.5 - 4.9 | EXTERNAL | | | | performed at [facility];[address] | mmol/L | LAB | | | | [address];[place] | | | | | | [address] | | | | + + + + + + | Cl | 108Comment: Testing | 99 - 109 mmol/L | EXTERNAL | | | | performed at [facility];[address] | | LAB | | | | [address];[place] | | | | | | [address] | | | | + + + + + + | CO2 | 27Comment: Testing | 23 - 32 mmol/L | EXTERNAL | | | | performed at [facility];[address] | | LAB | | | | [address];[place] | | | | | | [address] | | | | + + + + + + | Anion Gap | 10Comment: Testing | 5 - 20 mmol/L | EXTERNAL | | | | performed at [facility];[address] | | LAB | | | | [address];[place] | | | | | | [address] | | | | + + + + + + | Glucose, | 175 (H)Comment: Testing | 65 - 99 mg/dL | EXTERNAL | | | Fasting | performed at [facility];[address] | | LAB | | | | [address];[place] | | | | | | [address] | | | | + + + + + + | BUN | 17Comment: Testing | 8 - 25 mg/dL | EXTERNAL | | | | performed at [facility];[address] | | LAB | | | | [address];[place] | | | | | | [address] | | | | + + + + + + | Creatinine | 0.86Comment: Testing | 0.70 - 1.30 | EXTERNAL | | | | performed at [facility];[address] | mg/dL | LAB | | | | [address];[place] | | | | | | [address] | | | | + + + + + + | BUN/Creatin | 19Comment: Testing | | EXTERNAL | | | ine Ratio | performed at [facility];[address] | | LAB | | | | [address];[place] | | | | | | [address] | | | | + + + + + + | Calcium | 8.7Comment: Testing | 8.5 - 10.5 | EXTERNAL | | | | performed at [facility];[address] | mg/dL | LAB | | | | [address];[place] | | | | | | [address] | | | | + + + + + + | Protein, | 6.9Comment: Testing | 6.3 - 8.2 g/dL | EXTERNAL | | | Total | performed at [facility];[address] | | LAB | | | | [address];[place] | | | | | | [address] | | | | + + + + + + | Albumin | 3.0 (L)Comment: Testing | 3.6 - 5.0 g/dL | EXTERNAL | | | | performed at [facility];[address] | | LAB | | | | [address];[place] | | | | | | [address] | | | | + + + + + + | Globulin | 3.9Comment: Testing | 1.3 - 4.9 g/dL | EXTERNAL | | | | performed at [facility];[address] | | LAB | | | | [address];[place] | | | | | | [address] | | | | + + + + + + | A/G Ratio | 0.8 (L)Comment: Testing | 1.0 - 2.4 | EXTERNAL | | | | performed at [facility];[address] | | LAB | | | | [address];[place] | | | | | | [address] | | | | + + + + + + | Bilirubin | 0.3Comment: Testing | 0.1 - 1.5 mg/dL | EXTERNAL | | | Total | performed at [facility];[address] | | LAB | | | | [address];[place] | | | | | | [address] | | | | + + + + + + | ALP, | 106Comment: Testing | 35 - 115 U/L | EXTERNAL | | | External | performed at [facility];[address] | | LAB | | | | [address];[place] | | | | | | [address] | | | | + + + + + + | AST | 18Comment: Testing | 10 - 45 U/L | EXTERNAL | | | | performed at [facility];[address] | | LAB | | | | [address];[place] | | | | | | [address] | | | | + + + + + + | ALT | 21Comment: Testing | 10 - 65 U/L | EXTERNAL | | | | performed at [facility];[address] | | LAB | | | | [address];[place] | | | | | | [address] | | | | + + + [...] [address] | | | | [address];[place] [address] | | | | + + + + + + | CK, Total | 170Comment: Testing | 55 - 400 U/L | EXTERNAL | | | | performed at [facility];[address] | | LAB | | | | [address];[place] | | | | | | [address] | | | | + + + [...] [place] | | | | | | [address] | | | | + + + + + + | aPTT, | 27Comment: Testing | 23 - 32 seconds | EXTERNAL | | | Patient | performed at [facility];[address] | | LAB | | | | [address];[place] | | | | | | [address] | | | | + + + + + + | CK-MB | 3.2Comment: Testing | 0.5 - 3.6 ng/mL | EXTERNAL | | | | performed at [facility];[address] | | LAB | | | | [address];[place] | | | | | | [address] | | | | + + + + + + | CK-MB Index | 1.9Comment: CK INDEX [...] + +---------+ + + ECG 12 lead (12/11/2014 3:23 AM PST) + + + + + + | Component | Value | Ref Range | Performed | Pathologist | | | | | At | Signature | + + + + + + | DIAGNOSIS: | Normal sinus | | EXTERNAL | | | | rhythmModerate voltage | | LAB | | | | criteria for LVH, may be | | | | | | normal | | | | | | variantBorderline | | | | | | ECGWhen compared with | | | | | | ECG of 05-DEC-2014 | | | | | | 00:58,No significant | | | | | | [...] (500), | | | | | | scientific publications editor Keyla Gregory | | | | | | (25) on 12/11/2014 | | | | | | 4:34:20 AM | | | | + + + + + + + + | Specimen | + + | | + + + + + | Narrative | Performed At | + + + | Historically converted procedure from [facility] Epic environment | EXTERNAL LAB | [...]
--- OUTSIDE RECORDS SUMMARY | ~2019-10-12 | XMS | Encounter Summary ---
Demographics + + + | Address | [address] | | | [place] [address] | + + + | Home Phone [...] + | Sammi Kohler | ECON | [place] [address] | | + + + + + Care Team Providers + +------+ + | Care Admin Dir Name | Role | Phone | + +------+ + PCP | Unavailable | + +------+ + Encounter Details +--------+ + + + + | Date | Type | Department | Care Team | Description | +--------+ + + + + | 08/13/ | Emergency | [facility] | Yesica Flowers, | Abdominal pain; | | 2013 - | | [facility] | DO [address] | Diabetes mellitus, | | | | EMERGENCY CENTER | [place] [address] | type 2 (HCC); Atrial | | 08/14/ | | [address] | [phone] | fibrillation (HCC); | | 2013 | | [place], [place] | | HTN (hypertension) | | | | [address] | | | | | | [phone] | | | +--------+ + + + [...] 08/14/13122 Date of Service: 08/14/13122 Status: Signed Assistant Shift Supervisor: Suresh Marin RN (Registered Nurse) :Pt awake alert in no distress. Suresh Marin RN 08/14/13122 hitak Yesica llanos DO - 08/13/2013 10:22 PM PDTFormatting of this note might be different from the o riginal. ED Provider Notes by Yesica Flowers DO at 08/13/132221 Author: Yesica Flowers DO Service: (none) Author Type: Physician Filed: 08/15/13 1443 Date of Service: 08/13/132221 Status: Signed Assistant Shift Supervisor: Yesica Flowers DO (Physician) Additional Documentation Procedures [facility] Department of Emergency Medicine History of Present Illness Patient Identification Norah Gr is a 57 y.o. male. Patient information was obtained from patient. History/Exam limitations: none. Patient presented to the Emergency Department [place] [address] Chief Complaint Chief Complaint Patient presents with [...] into the skin nightly. H istorical Provider qhykycjqd-uyqpfctq-aidpfoboc hydroxide-simethicone Take 40 mLs by mouth daily [...] Procedure Component Value Ref Range Date/Time Lipase [[id number]] Collected:08/13/132140 Order Status:Completed Updated:08/13/132257 LIPASE 163 73 - 393 U/L CBC W/Auto Diff (Reflex to Manual) [[id number]] (Abnormal) Collected:08/13/132208 Order Status:Completed Updated:08/13/132219 WBC 9.4 [...] 0 - 0.1 K/uL Comprehensive metabolic panel [[id number]] (Abnormal) Collected:08/13/132140 Order Status:Completed Updated:08/13/132210 Specimen Information:Blood [...] Comments Contact Info Jerrell Diego DO tomorrow [address] [facility] [id number] Discharge Medications: New Prescriptions No new medications Yesica Flowers DO 08/15/13 1440 onversion Transacti on, Provider Unknown - 08/13/2013 9:29 PM PDTFormatting of this note might be different fro m the original. ED Notes by Vadim Bernal RN at 08/13/132128 Author: Vadim Bernal RN Service: (none) Author Type: Registered Nurse Filed: 08/13/132130 Date of Service: 08/13/132128 Status: Signed Assistant Shift Supervisor: Vadim Bernal RN (Registered Nurse) Per EMS: [...] | | | | | [place], | | | | | | [place] [address] | | | | | | [phone] | | | | | | | [...] performed at [facility] | | LAB | | | | [address];[place] | | | | | | [address] | | | | + + + + + + | Non- | 4.86Comment: Testing | 4.20 - 5.70 | EXTERNAL | | | Red Blood | performed at [facility];[address] | M/uL | LAB | | | Cells | [address];[place] | | | | | Counted | [address] | | | | + + + + + + | Hemoglobin | 12.9 (L)Comment: Testing | 13.2 - 17.0 | EXTERNAL | | | | performed at [facility];[address] | g/dL | LAB | | | | [address];[place] | | | | | | [address] | | | | + + + + + + | Hematocrit, | 38.5 (L)Comment: Testing | 39.0 - 50.0 % | EXTERNAL | | | POC | performed at [facility];[address] | | LAB | | | | [address];[place] | | | | | | [address] | | | | + + + + + + | MCV | 79.3 (L)Comment: Testing | 80.0 - 100.0 fl | EXTERNAL | | | | performed at [facility];[address] | | LAB | | | | [address];[place] | | | | | | [address] | | | | + + + + + + | MCH | 26.6 (L)Comment: Testing | 27.0 - 34.0 pg | EXTERNAL | | | | performed at [facility];[address] | | LAB | | | | [address];[place] | | | | | | [address] | | | | + + + + + + | MCHC | 33.6Comment: Testing | 32.0 - 35.5 | EXTERNAL | | | | performed at [facility];888 | g/dL | LAB | | | | [address];[place] | | | | | | [address] | | | | + + + + + + | RDW-CV | 42.0Comment: Testing | 37 - 53 fl | EXTERNAL | | | | performed at [facility];[address] | | LAB | | | | [address];[place] | | | | | | [address] | | | | + + + + + + | Platelet | 284Comment: Testing | 150 - 400 K/uL | EXTERNAL | | | Count | performed at [facility];[address] | | LAB | | | Plasma | [address];[place] | | | | | | [address] | | | | + + + + + + | MPV | 7.2Comment: Testing | fl | EXTERNAL | | | | performed at [facility];[address] | | LAB | | | | [address];[place] | | | | | | [address] | | | | + + + + + + | Differentia | AUTOMATEDComment: | | EXTERNAL | | | l Type | Testing performed at | | LAB | | | | [facility];[address];[place] [address] | | | | + + + + + + | % Segmented | 52.3Comment: Testing | % | EXTERNAL | | | | performed at [facility];[address] | | LAB | | | Neutrophils | [address];[place] | | | | | | [address] | | | | + + + + + + | % | 36.0Comment: Testing | % | EXTERNAL | | | Lymphocytes | performed at [facility];[address] | | LAB | | | | [address];[place] | | | | | | [address] | | | | + + + + + + | % Monocytes | 8.7Comment: Testing | % | EXTERNAL | | | | performed at [facility];[address] | | LAB | | | | [address];[place] | | | | | | [address] | | | | + + + + + + | % | 2.4Comment: Testing | % | EXTERNAL | | | Eosinophils | performed at [facility];[address] | | LAB | | | | [address];[place] | | | | | | [address] | | | | + + + + + + | % Basophils | 0.6Comment: Testing | % | EXTERNAL | | | | performed at [facility];[address] | | LAB | | | | [address];[place] | | | | | | [address] | | | | + + + + + + | Absolute | 4.9Comment: Testing | 1.9 - 7.4 K/uL | EXTERNAL | | | Segmented | performed at [facility];[address] | | LAB | | | Neutrophils | [address];[place] | | | | | | [address] | | | | + + + + + + | Absolute | 3.4Comment: Testing | 1.0 - 3.9 K/uL | EXTERNAL | | | Lymphocytes | performed at [facility];[address] | | LAB | | | | [address];[place] | | | | | | [address] | | | | + + + + + + | Absolute | 0.8Comment: Testing | 0 - 0.8 K/uL | EXTERNAL | | | Monocytes | performed at [facility];[address] | | LAB | | | | [address];[place] | | | | | | [address] | | | | + + + + + + | Absolute | 0.2Comment: Testing | 0 - 0.5 K/uL | EXTERNAL | | | Eosinophils | performed at [facility];[address] | | LAB | | | | [address];[place] | | | | | | [address] | | | | + + + + + + | Absolute | 0.1Comment: Testing | 0 - 0.1 K/uL | EXTERNAL | | | Basophils | performed at [facility];[address] | | LAB | | | | [address];[place] | | | | | | [address] | | | | + + + [...] | LAB | | | | [address];[place] | | | | | | [address] | | | | + + + [...] [place] | | | | | | [address] | | | | + + + + + + | K | 3.8Comment: Testing | 3.5 - 4.9 | EXTERNAL | | | | performed at [facility];[address] | mmol/L | LAB | | | | [address];[place] | | | | | | [address] | | | | + + + + + + | Cl | 105Comment: Testing | 99 - 109 mmol/L | EXTERNAL | | | | performed at [facility];[address] | | LAB | | | | [address];[place] | | | | | | [address] | | | | + + + + + + | CO2 | 28Comment: Testing | 23 - 32 mmol/L | EXTERNAL | | | | performed at [facility];[address] | | LAB | | | | [address];[place] | | | | | | [address] | | | | + + + + + + | Anion Gap | 8Comment: Testing | 5 - 20 mmol/L | EXTERNAL | | | | performed at [facility];[address] | | LAB | | | | [address];[place] | | | | | | [address] | | | | + + + + + + | Glucose, | 235 (H)Comment: Testing | 65 - 99 mg/dL | EXTERNAL | | | Fasting | performed at [facility];[address] | | LAB | | | | [address];[place] | | | | | | [address] | | | | + + + + + + | BUN | 20Comment: Testing | 8 - 25 mg/dL | EXTERNAL | | | | performed at [facility];[address] | | LAB | | | | [address];[place] | | | | | | [address] | | | | + + + + + + | Creatinine | 1.01Comment: Testing | 0.70 - 1.30 | EXTERNAL | | | | performed at [facility];[address] | mg/dL | LAB | | | | [address];[place] | | | | | | [address] | | | | + + + + + + | BUN/Creatin | 20Comment: Testing | | EXTERNAL | | | ine Ratio | performed at [facility];[address] | | LAB | | | | [address];[place] | | | | | | [address] | | | | + + + + + + | Calcium | 8.8Comment: Testing | 8.5 - 10.2 | EXTERNAL | | | | performed at [facility];[address] | mg/dL | LAB | | | | [address];[place] | | | | | | [address] | | | | + + + + + + | Protein, | 7.7Comment: Testing | 6.3 - 8.2 g/dL | EXTERNAL | | | Total | performed at [facility];[address] | | LAB | | | | [address];[place] | | | | | | [address] | | | | + + + + + + | Albumin | 3.5 (L)Comment: Testing | 3.6 - 5.0 g/dL | EXTERNAL | | | | performed at [facility];[address] | | LAB | | | | [address];[place] | | | | | | [address] | | | | + + + + + + | Globulin | 4.2Comment: Testing | 1.3 - 4.9 g/dL | EXTERNAL | | | | performed at [facility];[address] | | LAB | | | | [address];[place] | | | | | | [address] | | | | + + + + + + | A/G Ratio | 0.8 (L)Comment: Testing | 1.0 - 2.4 | EXTERNAL | | | | performed at [facility];[address] | | LAB | | | | [address];[place] | | | | | | [address] | | | | + + + + + + | Bilirubin | 0.3Comment: Testing | 0.1 - 1.5 mg/dL | EXTERNAL | | | Total | performed at [facility];[address] | | LAB | | | | [address];[place] | | | | | | [address] | | | | + + + + + + | ALP, | 91Comment: Testing | 35 - 115 U/L | EXTERNAL | | | External | performed at [facility];[address] | | LAB | | | | [address];[place] | | | | | | [address] | | | | + + + + + + | AST | 17Comment: Testing | 10 - 45 U/L | EXTERNAL | | | | performed at [facility];[address] | | LAB | | | | [address];[place] | | | | | | [address] | | | | + + + + + + | ALT | 28Comment: Testing | 10 - 65 U/L | EXTERNAL | | | | performed at [facility];[address] | | LAB | | | | [address];[place] | | | | | | [address] | | | | + + + [...] at [facility];[address] [facility] | | | | | | [address];[place] [address] | | | | + + + [...]
--- OUTSIDE RECORDS SUMMARY | ~2019-10-12 | XMS | Encounter Summary ---
Demographics + + + | Address | [address] [facility] [address] [address] | | | [place] [address] | + + + | Home Phone [...] + | Sammi Kohler | ECON | [place] [address] | | + + + + + Care Team Providers + +------+ + | Care Stucco Worker Name | Role | Phone | + +------+ + PCP | Unavailable | + +------+ + Encounter Details +--------+ + + + + | Date | Type | Department | Care Team | Description | +--------+ + + + + | 10/27/ | Emergency | [facility] | Reinaldo Gold | Abdominal pain; | | 2013 | | [facility] | DO Anatoliy Anthony W POPLAR | Constipation; | | | | EMERGENCY CENTER | [place], [place] | Hyperglycemia; | | | | [address] | [address] | Diabetes ([facility]) | | | | [place], [place] | | | | | | [address] | | | | | | [phone] | | | +--------+ + + + [...] Date of Service: 10/27/13 1106 Status: Signed Fashion Consultant Sales: Michelle Palomares RN (Registered Nurse) Fingerstick glucose 198 mg/dL Michelle Palomares RN 10/27/13 1106 onver ivana Transaction, Provider Unknown - 10/27/2013 10:44 AM PDT ED Notes by Michelle Palomares RN at 10/27/13 1044 Author: Michelle Palomares RN Service: (none) Author Type: Registered Nurse Filed: 10/27/13 1045 Date of Service: 10/27/13 1044 Status: Signed Fashion Consultant Sales: Michelle Palomares RN (Registered Nurse) Pt asleep with snoring respirations. [address] Michelle Palomares RN 10/27/13 1045 onver ivana Transaction, Provider Unknown - 10/27/2013 10:28 AM PDT ED Notes by Michelle Palomares RN at 10/27/13 1028 Author: Michelle Palomares RN Service: (none) Author Type: Registered Nurse Filed: 10/27/13 1028 Date of Service: 10/27/13 1028 Status: Signed Fashion Consultant Sales: Michelle Palomares RN (Registered Nurse) Pt returned from XR Michelle Palomares RN 10/27/13 1028 onver ivana Transaction, Provider Unknown - 10/27/2013 9:52 AM PDT ED Notes by Michelle Palomares RN at 10/27/13951 Author: Michelle Palomares RN Service: (none) Author Type: Registered Nurse Filed: 10/27/13951 Date of Service: 10/27/13951 Status: Signed Fashion Consultant Sales: Michelle Palomares RN (Registered Nurse) Pt denies pain, refuses pain med at this time Michelle Palomares RN 10/27/13951 orsyReinaldo carmen DO - 10/27/2013 9:28 AM PDTFormatting of this note might be different from chetan pugh original. ED Provider Notes by Reinaldo Gold DO at 10/27/13927 Author: Reinaldo Gold DO Service: (none) Author Type: Physician Filed: 10/29/13 0751 Date of Service: 10/27/13927 Status: Signed Fashion Consultant Sales: Reinaldo Gold DO (Physician) [facility] Department of Emergency Medicine 10/27/2013 History of Present Illness Patient Identification Norah Gr is a 57 y.o. male. Patient information was obtained from patient. History/Exam limitations: none. Patient presented to the Emergency Department by: Car Chief Complaint Chief Complaint Patient presents with Altered Mental Status began this AM. 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 states pt is agitated, began this AM Pt presents to the ED with AMS. Onset of symptoms was today, with an improving course since that time. Severity is described as moderate. The pt's ex mother in law states that the pt was uncooperative with the nursing staff at his skilled nursing this morning and has been refus ing [...] insulin. H/o developmental disability, currently residing in skilled nursing. PCP: JERRELL GUTIÉRREZ Past Medical History Diagnosis [...] CHOLECYSTECTOMY; Surgeon: Jevon Vargas DO; Location: [facility] MAIN OR; Service: General; Laterality: N/A; Abdominal surgery Cholecystectomy Skin cancer excision 10/10/2012 Procedure: EXCISION - SKIN CANCER; Surgeon: Sy Fierro MD; Location: [facility] MAIN OR ; Service: Plastics; Laterality: Left; upper arm and upper back w/frozen section Esophagogastroduodenoscopy 03/03/2013 Procedure: ESOPHAGOGASTRODUODENOSCOPY; Surgeon: Howie Gibson MD; Location: [facility] ENDOSCOPY; S ervice: Gastroenterology; Laterality: N/A; Colonoscopy 03/04/2013 Procedure: COLONOSCOPY; Surgeon: Howie Gibson MD; Location: [facility] ENDOSCOPY; Service: Gastroe nterology; Laterality: N/A; Upper gastrointestinal endoscopy Skin biopsy Hernia repair 07/03/2013 Procedure: LAPAROSCOPIC - HERNIA - INCISIONAL; Surgeon: Jevon Vargas DO; Location: [facility] MAIN OR; Service: General; Laterality: N/A; [...] into the skin nightly. H istorical Provider uehbajzkh-qzyjrbcw-tizbgcutq hydroxide-simethicone Take 40 mLs by mouth daily [...] on file Social History Narrative Lives in correction, IADL, full code Family History Problem Relation [...] labs and imaging results with the pt. Pigpmq-ac-gil who is his caregiver at this time. 11:02 AM. Reviewed labs. Glucose is 215. The pt has not eaten or taken his insulin today. Discussed having the patient receive insulin anemia willijess here however they both prefer to go back to the skilled nursing facility at this time where he will [...] this time. The patient return to the skilled nursing facility we did receive a call from [...] injection 4 mg 4 mg Intravenous Given Michlele Palomares RN 10/27/2013 1105 bisacodyl (DULCOLAX) suppository 10 mg 10 mg Rectal Given Michelle Palomares RN Filed Vitals: 10/27/13 0850 10/27/13 0955 10/27/13 1039 10/27/13 1123 BP: 221/99 151/80 155/86 Pulse: 95 76 Temp: 97.7 F (36.5 C) TempSrc: Oral Resp: 18 14 16 Weight: SpO2: 94% 88% 97% 94% Records Reviewed Old ED records reviewed (Using the electronic record system of [facility], I car efully reviewed the records with regard to the past medical/surgical history, previous medic ations, and allergies). Laboratory Evaluation Results Procedure Component Value Ref Range Date/Time Ammonia Level [[id number]] (Abnormal) Collected: 10/27/13 1030 Order Status: Completed Updated: 10/27/13 1130 Specimen Information: Blood AMMONIA 61 (H) <33 umol/L POC clinitek 10 [[id number]] (Abnormal) Collected: 10/27/13 1107 Order Status: Completed [...] NEGATIVE NEGATIVE WBC, UA NEGATIVE NEGATIVE Ketones,Serum [[id number]] Collected: 10/27/1355 Order Status: Completed Updated: 10/27/13 1043 KETONES,SERUM NEGATIVE NEGATIVE Lipase [[id number]] Collected: 10/27/13954 Order Status: Completed Updated: 10/27/13 1021 Specimen Information: Blood LIPASE 88 73 - 393 U/L Comprehensive metabolic panel [[id number]] (Abnormal) Collected: 10/27/13 0955 Order Status: Completed [...] 65 U/L EGFR >60 >60 mL/min/1.73m2 Amylase [[id number]] Collected: 10/27/13954 Order Status: Completed Updated: 10/27/13 1021 Specimen Information: Blood AMYLASE 25 25 - 115 U/L Protime-INR [[id number]] Collected: 10/27/13954 Order Status: Completed Updated: 10/27/13 1015 Specimen Information: Blood INR 1.0 CBC W/Auto Diff (Reflex to Manual) [[id number]] (Abnormal) Collected: 10/27/13954 Order Status: Completed Updated: [...] Documented by Reinaldo Gold DO (10/27/13 10:31:15, [facility] Emergency Department, Emergency Medicine) No obvious free [...] Comments Contact Info Jerrell Gutiérrez DO Call [facility] [phone] [facility] Emergency Department If symptoms worsen [address] [place] [id number] Discharge Medications: Discharge Medication List as of [...] | 2020 | visit | | [address] | | | | | | [place], | | | | | | [place] [address] | | | | | | [phone] | | | | | | | [...] | | | Fingerstick | performed at [facility];[address] | | LAB | | | | [address];[place] | | | | | | [address] | | | | + + + [...] EXTERNAL | | | | performed at [facility];[address] | | LAB | | | | [address];[place], [place] | | | | | | [address] | | | | + + + [...] - 09/21/2018 3:31 PM PDT NORAH [id number] ABDOMEN ACUTE | | SERIES10/27/2013 10:29 [...] perforation. Electronically | | signed by Kishan iJ MD on 10/27/2013 10:31 AM | |TECHNIQUE: [...] | | | Blood | performed at [facility];[address] | | LAB | | | | [address];[place], [place] | | | | | | [address] | | | | + + + [...] | | | | | performed at [facility];[address] | | | | | | [address];[place], [place] | | | | | | [address] | | | | + + + [...] EXTERNAL | | | | performed at [facility];[address] | | LAB | | | [address];[place], [place] | | | | | | [address] | | | | + + + + + + | Non- | 4.88Comment: Testing | 4.20 - 5.70 | EXTERNAL | | | Red Blood | performed at [facility];[address] | M/uL | LAB | | | Cells | [address];[place] | | | | | Counted | [address] | | | | + + + + + + | Hemoglobin | 13.1 (L)Comment: Testing | 13.2 - 17.0 | EXTERNAL | | | | performed at [facility];[address] | g/dL | LAB | | | | [address];[place] | | | | | | [address] | | | | + + + + + + | Hematocrit, | 38.9 (L)Comment: Testing | 39.0 - 50.0 % | EXTERNAL | | | POC | performed at [facility];[address] | | LAB | | | | [address];[place] | | | | | | [address] | | | | + + + + + + | MCV | 79.7 (L)Comment: Testing | 80.0 - 100.0 fl | EXTERNAL | | | | performed at [facility];[address] | | LAB | | | | [address];[place] | | | | | | [address] | | | | + + + + + + | MCH | 26.9 (L)Comment: Testing | 27.0 - 34.0 pg | EXTERNAL | | | | performed at [facility];[address] | | LAB | | | | [address];[place] | | | | | | [address] | | | | + + + + + + | MCHC | 33.7Comment: Testing | 32.0 - 35.5 | EXTERNAL | | | | performed at [facility];[address] | g/dL | LAB | | | | [address];[place] | | | | | | [address] | | | | + + + + + + | RDW-CV | 41.6Comment: Testing | 37 - 53 fl | EXTERNAL | | | | performed at [facility];[address] | | LAB | | | | [address];[place] | | | | | | [address] | | | | + + + + + + | Platelet | 263Comment: Testing | 150 - 400 K/uL | EXTERNAL | | | Count | performed at [facility];[address] | | LAB | | | Plasma | [address];[place] | | | | | | [address] | | | | + + + + + + | MPV | 7.5Comment: Testing | fl | EXTERNAL | | | | performed at [facility];[address] | | LAB | | | | [address];[place] | | | | | | [address] | | | | + + + + + + | Differentia | AUTOMATEDComment: | | EXTERNAL | | | l Type | Testing performed at | | LAB | | | | [facility];[address];[place] [address] | | | | + + + + + + | % Segmented | 54.4Comment: Testing | % | EXTERNAL | | | | performed at [facility];[address] | | LAB | | | Neutrophils | [address];[place] | | | | | | [address] | | | | + + + + + + | % | 29.9Comment: Testing | % | EXTERNAL | | | Lymphocytes | performed at [facility];[address] | | LAB | | | | [address];[place] | | | | | | [address] | | | | + + + + + + | % Monocytes | 10.8Comment: Testing | % | EXTERNAL | | | | performed at [facility];[address] | | LAB | | | | [address];[place] | | | | | | [address] | | | | + + + + + + | % | 3.7Comment: Testing | % | EXTERNAL | | | Eosinophils | performed at [facility];[address] | | LAB | | | | [address];[place] | | | | | | [address] | | | | + + + + + + | % Basophils | 1.2Comment: Testing | % | EXTERNAL | | | | performed at [facility];[address] | | LAB | | | | [address];[place] | | | | | | [address] | | | | + + + + + + | Absolute | 4.2Comment: Testing | 1.9 - 7.4 K/uL | EXTERNAL | | | Segmented | performed at [facility];[address] | | LAB | | | Neutrophils | [address];[place] | | | | | | [address] | | | | + + + + + + | Absolute | 2.3Comment: Testing | 1.0 - 3.9 K/uL | EXTERNAL | | | Lymphocytes | performed at [facility];[address] | | LAB | | | | [address];[place] | | | | | | [address] | | | | + + + + + + | Absolute | 0.8Comment: Testing | 0 - 0.8 K/uL | EXTERNAL | | | Monocytes | performed at [facility];[address] | | LAB | | | | [address];[place] | | | | | | [address] | | | | + + + + + + | Absolute | 0.3Comment: Testing | 0 - 0.5 K/uL | EXTERNAL | | | Eosinophils | performed at [facility];[address] | | LAB | | | | [address];[place] | | | | | | [address] | | | | + + + + + + | Absolute | 0.1Comment: Testing | 0 - 0.1 K/uL | EXTERNAL | | | Basophils | performed at [facility];[address] | | LAB | | | | [address];[place] | | | | | | [address] | | | | + + + [...] EXTERNAL | | | | performed at [facility];[address] | | LAB | | | | [address];[place], [place] | | | | | | [address] | | | | + + + [...] EXTERNAL | | | | performed at [facility];[address] | | LAB | | | | [address];[place], [place] | | | | | | [address] | | | | + + + [...] EXTERNAL | | | | performed at [facility];[address] | mmol/L | LAB | | | | [address];[place] | | | | | | [address] | | | | + + + + + + | K | 3.8Comment: Testing | 3.5 - 4.9 | EXTERNAL | | | | performed at [facility];[address] | mmol/L | LAB | | | | [address];[place] | | | | | | [address] | | | | + + + + + + | Cl | 104Comment: Testing | 99 - 109 mmol/L | EXTERNAL | | | | performed at [facility];[address] | | LAB | | | | [address];[place] | | | | | | [address] | | | | + + + + + + | CO2 | 31Comment: Testing | 23 - 32 mmol/L | EXTERNAL | | | | performed at [facility];[address] | | LAB | | | | [address];[place] | | | | | | [address] | | | | + + + + + + | Anion Gap | 7Comment: Testing | 5 - 20 mmol/L | EXTERNAL | | | | performed at [facility];[address] | | LAB | | | | [address];[place] | | | | | | [address] | | | | + + + + + + | Glucose, | 215 (H)Comment: Testing | 65 - 99 mg/dL | EXTERNAL | | | Fasting | performed at [facility];[address] | | LAB | | | | [address];[place] | | | | | | [address] | | | | + + + + + + | BUN | 17Comment: Testing | 8 - 25 mg/dL | EXTERNAL | | | | performed at [facility];[address] | | LAB | | | | [address];[place] | | | | | | [address] | | | | + + + + + + | Creatinine | 1.15Comment: Testing | 0.70 - 1.30 | EXTERNAL | | | | performed at [facility];[address] | mg/dL | LAB | | | | [address];[place] | | | | | | [address] | | | | + + + + + + | BUN/Creatin | 15Comment: Testing | | EXTERNAL | | | ine Ratio | performed at [facility];[address] | | LAB | | | | [address];[place] | | | | | | [address] | | | | + + + + + + | Calcium | 8.6Comment: Testing | 8.5 - 10.2 | EXTERNAL | | | | performed at [facility];[address] | mg/dL | LAB | | | | [address];[place] | | | | | | [address] | | | | + + + + + + | Protein, | 6.9Comment: Testing | 6.3 - 8.2 g/dL | EXTERNAL | | | Total | performed at [facility];[address] | | LAB | | | | [address];[place] | | | | | | [address] | | | | + + + + + + | Albumin | 3.2 (L)Comment: Testing | 3.6 - 5.0 g/dL | EXTERNAL | | | | performed at [facility];[address] | | LAB | | | | [address];[place] | | | | | | [address] | | | | + + + + + + | Globulin | 3.7Comment: Testing | 1.3 - 4.9 g/dL | EXTERNAL | | | | performed at [facility];[address] | | LAB | | | | [address];[place] | | | | | | [address] | | | | + + + + + + | A/G Ratio | 0.9 (L)Comment: Testing | 1.0 - 2.4 | EXTERNAL | | | | performed at [facility];[address] | | LAB | | | | [address];[place] | | | | | | [address] | | | | + + + + + + | Bilirubin | 0.3Comment: Testing | 0.1 - 1.5 mg/dL | EXTERNAL | | | Total | performed at [facility];[address] | | LAB | | | | [address];[place] | | | | | | [address] | | | | + + + + + + | ALP, | 98Comment: Testing | 35 - 115 U/L | EXTERNAL | | | External | performed at [facility];[address] | | LAB | | | | [address];[place] | | | | | | [address] | | | | + + + + + + | AST | 21Comment: Testing | 10 - 45 U/L | EXTERNAL | | | | performed at [facility];[address] | | LAB | | | | [address];[place] | | | | | | [address] | | | | + + + + + + | ALT | 25Comment: Testing | 10 - 65 U/L | EXTERNAL | | | | performed at [facility];[address] | | LAB | | | | [address];[place] | | | | | | [address] | | | | + + + [...] | | | | | | at [facility];[address];[place] [address] | | | | + + + [...]
--- OUTSIDE RECORDS SUMMARY | ~2019-10-12 | XMS | Encounter Summary ---
Demographics + + + | Address | [address] | | | [place] [address] | + + + | Home Phone [...] + + + | Author | [facility] | | | and [place] | + + + | Organization | [facility] | | | and [place] | + + + | Address | Unknown | + + + | Phone | Unavailable | + + + Support + + + + + | Name | Relationship | Address | Phone | + + + + + | Sammi Kohler | ECON | [place] [address] | | + + + + + Care Team Providers + +------+ + | Care Fisheries Management Biologist Name | Role | Phone | + +------+ + PCP | Unavailable | + +------+ + Encounter Details +--------+ + + + + | Date | Type | Department | Care Team | Description | +--------+ + + + + | 01/18/ | Emergency | [facility] | Kevyn Barker MD | Hyperglycemia due to | | 2015 | | MEDICAL CENTER | [address] | type 2 diabetes | | | | EMERGENCY CENTER | [place] [address] | mellitus (HCC); | | | | [address] | [phone] | Chronic chest pain | | | | [place], [place] | | | | | | [address] | | | | | | [phone] | | | +--------+ + + + [...] documented as of this encounter ED Notes Kevyn Barker MD - 01/18/2015 6:20 AM PST ED Provider Notes by Kevyn Barker MD at 01/18/15619 Author: Kevyn Barker MD Service: Emergency Department Author Type: Physician Filed: 01/18/15816 Date of Service: 01/18/15619 Status: Signed Hospital Nurse: Kevyn Barker MD (Physician) Located Within [facility] Department of Emergency Medicine No flowsheet data found. History of Present Illness Patient Identification Kevyn Guzman is a 59 y.o. male. Patient information was obtained from patient. History/Exam limitations: none. Patient presented to the Emergency Department [place] [address] Room:08/12 Chief Complaint Chief Complaint Patient presents with Hyperglycemia- No Symptoms 59 y.o. male with high blood sugar. Patient states he woke up around 3:00 this morning chec ked his blood sugar was over 300 he states he spoke with his diabetes doctor told him to dominique e five units of insulin which only brought it down slightly. As he was not making a lot of p rogress with his blood sugar he activated EMS. I also told him that he was having some chest pain that he states the chest pain is more throughout the whole chest as well as his body f rom when he slipped and fell on the ice a couple weeks ago and is been sore since that time. Since that time he has been admitted to the hospital and had a cardiac rule out. He does no t think he is having a cardiac event. Symptoms are described as moderate. He denies any feve rs, chills, nausea, vomiting, diarrhea. No polyuria or polydipsia. 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 Authorizing Provider Albuterol Sulfate (VENTOLIN HFA IN) Inhale 2 puffs into the lungs as needed. 108 mcg/act Historical Provider Ifzyq-W-Itabhlahampej (BEANO) TABS Take 150 Units by mouth [...] 100 mg by mouth nightly. Historical Provider ujatgaffx-zyhdiwvi-ijlaiamrs hydroxide-simethicone Take 40 mLs by mouth daily [...] of Children: 1 Years of Education: s. [employer] Occupational History disabled Social History Main Topics Smoking status: Never Smoker Smokeless tobacco: Never Used Alcohol Use: 0.0 oz/week 1-2 Cans of beer per week Comment: once week, occasionally Drug Use: No Sexual Activity: Not Currently Other Topics Concern Not on file Social History Narrative Lives alone x 1 wk, moved from [facility], , 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 2 falls in the last 6 months. Family History Problem Relation Age of Onset Heart disease Father Heart disease Sister Diabetes type II Sister Heart Problems Brother Review of Systems Positive for: Hyperglycemia, bodyaches, chronic chest pain No fever, chills, nausea or vomiting. No vision changes, difficulty breathing. No headache, abdominal pain, weakness or rash. No difficulty with urination or bowel movements. No other complaints. See HPI for further relevant details. All systems otherwise negative, except as recorded above and as recorded in the HPI. Physical Exam Filed Vitals: 01/18/15 0618 01/18/15 0708 01/18/15 0742 BP: 173/90 178/81 195/87 Pulse: 69 64 63 Temp: 97.8 F (36.6 C) TempSrc: Temporal Resp: 15 16 16 Weight: 105.688 kg (233 lb) SpO2: 97% 96% 96% INTERPRETATION OF VITALS Pulse Oximetry interpretation: Normal Otherwise normal PHYSICAL EXAM Appearance: Alert. No acute distress. Head: Normal external exam. Eyes: EOMI, PERRL, no scleral icterus. ENT: Normal external ENT inspection. Neck: Supple. FROM. CVS: Normal heart rate and rhythm. Heart sounds normal. Pulses normal. Respiratory: No respiratory distress. No wheezing, rales, or rhonchi. Mild anterior chest wall tenderness. No deformity. Abdomen: Soft and nontender. No rebound or guarding. Genitourinary: Deferred. Back: Moves without difficulty. Skin: Skin warm and dry. Extremities: No deformity. No focal tenderness. Neuro: Moves all extremities. No gross deficit. Medical Decision Making and Emergency Department Course ED Department Course: 6:20 AM Kevyn Guzman is a 59 y.o. male who presents with a chief complaint of hyperglycemia. Diffe rential diagnosis includes uncontrolled diabetes, DKA, hyperosmolar crisis, other. After dis cussing diagnostic and therapeutic options with the patient we will obtain routine screening labs and an EKG. We will treat symptomatically. We will monitor closely and reevaluate.. ECG unremarkable. Laboratory studies negative for DKA. Troponin negative. Blood sugar trending down. 7:40 AM On reevaluation patient's comfortable he states that he is feeling well. No nausea or vomit ing. Tolerating oral fluids. At this time I feel he stable for outpatient management of his chronic issues. Typical anticipatory guidelines and strict return to Emergency Department pr ecautions have been given. All involved are understanding of and in agreement with this plan . All questions have been addressed to the best of my ability. Records Reviewed Old medical records. Previous electrocardiograms. Patient has had thirty-one EKGs performed at our facility this year. Nursing notes. Ambulance run sheet. Previous radiology studies. Laboratory Evaluation Results Procedure Component Value Ref Range Date/Time Cardiac Panel [[id number]] (Abnormal) Collected: 01/18/1537 Order Status: Completed Updated: 01/18/1509 WBC 8.56 3.80 - 11.00 K/uL RBC 5.09 4.20 - 5.70 M/uL HGB 12.3 (L) 13.2 - 17.0 g/dL HCT 38.0 (L) 39.0 - 50.0 % MCV 74.7 (L) 80.0 - 100.0 fl MCH 24.1 (L) 27.0 - 34.0 pg MCHC 32.3 32.0 - 35.5 g/dL RDW SD 43.8 37 - 53 fl PLT 265 150 - 400 K/uL MPV 7.4 fl DIFF TYPE AUTOMATED NEUTROPHILS 45.96 % LYMPHOCYTES 38.10 % MONOCYTES 10.66 % EOSINOPHILS 4.38 % BASOPHILS 0.90 % NEUTROPHILS ABS 3.93 1.90 - 7.40 K/uL LYMPHOCYTES ABS 3.26 1.00 - 3.90 K/uL MONOCYTES ABS 0.91 (H) 0.00 - 0.80 K/uL EOSINOPHILS ABS 0.38 0.00 - 0.50 K/uL BASOPHILS ABS 0.08 0.00 - 0.10 K/uL MORPHOLOGY 1+ Platelet Estimate ADEQUATE SODIUM 139 135 - 143 mmol/L POTASSIUM 4.0 3.5 - 4.9 mmol/L CHLORIDE 105 99 - 109 mmol/L CO2 27 23 - 32 mmol/L ANION GAP AGAP 10 5 - 20 mmol/L GLUCOSE 259 (H) 65 - 99 mg/dL BUN 15 8 - 25 mg/dL CREATININE 0.85 0.70 - 1.30 mg/dL BUN/CREAT 17 CALCIUM 8.4 (L) 8.5 - 10.5 mg/dL TOTAL PROTEIN 6.6 6.3 - 8.2 g/dL Albumin 2.9 (L) 3.3 - 4.8 g/dL GLOBULIN 3.7 1.3 - 4.9 g/dL A/G 0.8 (L) 1.0 - 2.4 TBIL 0.2 0.1 - 1.5 mg/dL ALK PHOS 137 (H) 35 - 115 U/L AST 14 10 - 45 U/L ALT 21 10 - 65 U/L EGFR >60 >60 mL/min/1.73m2 CPK 95 55 - 400 U/L INR 3.0 APTT 34 (H) 23 - 32 seconds MMB 2.4 0.5 - 3.6 ng/mL CK-MB Index 2.5 Ketones, Serum [[id number]] Collected: 01/18/15 0637 Order Status: Completed Specimen Information: Blood Updated: 01/18/15 0656 KETONES,SERUM NEGATIVE NEGATIVE POC cardiac troponin [[id number]] Collected: 01/18/1540 Order Status: Completed Updated: 01/18/1554 POC CARDIAC TROPONIN 0.01 0.00 - 0.10 ng/mL Lab Interpretation I have reviewed lab results from the emergency department workup and abnormal results have been posted to the chart. Pertinent positive and negative findings have been addressed appr opriately. Radiology and EKG Evaluation Imaging Results None ECG from 0619: Sinus rhythm at 75 bpm. HI, QRS, QT, and axis are normal. No ST segment crista vations or depression. No significant Q waves. Good R wave progression through the precordia l leads. Meets No STEMI criteria for ischemia. In comparison with an old ECG from 12/28/14 there are no significant changes. This study has been independently viewed and interprete d by me. ED Diagnoses Final diagnoses Hyperglycemia due to type 2 diabetes mellitus (HCC) Chronic chest pain Disposition: ED Disposition Discharge Condition at discharge: Stable Follow-up Information Follow up With Details Comments Contact Info Jerrell Gutiérrez DO [address] [place] [address] [facility] [phone] Located Within [facility] Emergency Department If symptoms worsen [address] [facility] [id number] Discharge Medications: Discharge Medication List as of 01/18/2015 7:45 AM This document has been prepared with a voice recognition system. The possibility of "sound alike" tricot knitting machine operator errors, addition and/or deletions may occur. If there is any question p lease contact the author of the document. Procedures Additional Documentation Procedures Kevyn Barker MD 01/18/15816 onversion Transactlenin n, Provider Unknown - 01/18/2015 6:18 AM PST ED Notes by Ivonne Hernandez RN at 01/18/15617 Author: Ivonne Hernandez RN Service: (none) Author Type: Registered Nurse Filed: 01/18/15617 Date of Service: 01/18/15617 Status: Signed Hospital Nurse: Ivonne Hernandez RN (Registered Nurse) Bed: 07 Expected date: [...] | | | | | [place], | | | | | | [place] [address] | | | | | | [phone] | | | | | | | | +--------+ + + + + documented as of this encounter Procedures + +--------+ + + + | Procedure Name | Priori | Date/Time | Associated Diagnosis | Comments | | | ty | | | | + +--------+ + + + | POC GLUCOSE | Routin | 01/18/2015 | | Results for this | | | e | 7:05 AM | | procedure are in the | | | | PST | | results section. | + +--------+ + + + | HISTORICAL LAB PANEL | Routin | 01/18/2015 | | Results for this | | RESULT | e | 6:37 AM | | procedure are in the | | | | PST | | results section. | + +--------+ + + + | KETONES, BLOOD | Routin | 01/18/2015 | | Results for this | | | e | 6:37 AM | | procedure are in the | | | | PST | | results section. | + +--------+ + + + | ECG 12 LEAD | Routin | 01/18/2015 | | Results for this | | | e | 6:19 AM | | procedure are in the | | | | PST | | results section. | + +--------+ + + + documented in this encounter Results POC Glucose (01/18/2015 7:05 AM PST) + + + + + + | Component | Value | Ref Range | Performed | Pathologist | | | | | At | Signature | + + + + + + | Glucose, | 227 (H)Comment: Testing | 65 - 99 mg/dL | EXTERNAL | | | Fingerstick | performed at [facility];[address] | | LAB | | | [address];[place], [place] | | | | | | [address] [...] | + +---------+ + + Ketones, blood (01/18/2015 6:37 AM PST) + + + + + + | Component | Value | Ref Range | Performed | Pathologist | | | | | At | Signature | + + + + + + | Ketones, | NEGATIVEComment: Testing | | EXTERNAL | | | Blood | performed at [facility] | | LAB | | | | [address];[place], [place] | | | | | | [address] | | | | + + + [...] +---------+ + + HISTORICAL LAB PANEL RESULT (01/18/2015 6:37 AM PST) + + + + + + | Component | Value | Ref Range | Performed | Pathologist | | | | | At | Signature | + + + + + + | WBC | 8.56Comment: Testing | 3.80 - 11.00 | EXTERNAL | | | | performed at [facility];[address] | K/uL | LAB | | | | [address];[place] | | | | | | [address] | | | | + + + + + + | Non- | 5.09Comment: Testing | 4.20 - 5.70 | EXTERNAL | | | Red Blood | performed at [facility];[address] | M/uL | LAB | | | Cells | [address];[place] | | | | | Counted | [id number] | | | | + + + + + + | Hemoglobin | 12.3 (L)Comment: Testing | 13.2 - 17.0 | EXTERNAL | | | | performed at [facility];[address] | g/dL | LAB | | | | [address];[place] | | | | | | [address] | | | | + + + + + + | Hematocrit, | 38.0 (L)Comment: Testing | 39.0 - 50.0 % | EXTERNAL | | | POC | performed at [facility];[address] | | LAB | | | | [address];[place] | | | | | | [address] | | | | + + + + + + | MCV | 74.7 (L)Comment: Testing | 80.0 - 100.0 fl | EXTERNAL | | | | performed at [facility];[address] | | LAB | | | | [address];[place] | | | | | | [address] | | | | + + + + + + | MCH | 24.1 (L)Comment: Testing | 27.0 - 34.0 pg | EXTERNAL | | | | performed at [facility];[address] | | LAB | | | | [address];[place] | | | | | | [address] | | | | + + + + + + | MCHC | 32.3Comment: Testing | 32.0 - 35.5 | EXTERNAL | | | | performed at [facility];[address] | g/dL | LAB | | | | [address];[place] | | | | | | [address] | | | | + + + + + + | RDW-CV | 43.8Comment: Testing | 37 - 53 fl | EXTERNAL | | | | performed at [facility];[address] | | LAB | | | | [address];[place] | | | | | | [address] | | | | + + + + + + | Platelet | 265Comment: Testing | 150 - 400 K/uL | EXTERNAL | | | Count | performed at [facility];[address] | | LAB | | | Plasma | [address];[place] | | | | | | [address] | | | | + + + + + + | MPV | 7.4Comment: Testing | fl | EXTERNAL | | | | performed at [facility];[address] | | LAB | | | | [address];[place] | | | | | | [address] | | | | + + + + + + | Differentia | AUTOMATEDComment: | | EXTERNAL | | | l Type | Testing performed at | | LAB | | | | [facility];[address];[place] [address] | | | | + + + + + + | % Segmented | 45.96Comment: Testing | % | EXTERNAL | | | | performed at [facility];[address] | | LAB | | | Neutrophils | [address];[place] | | | | | | [address] | | | | + + + + + + | % | 38.10Comment: Testing | % | EXTERNAL | | | Lymphocytes | performed at [facility];[address] | | LAB | | | | [address];[place] | | | | | | [address] | | | | + + + + + + | % Monocytes | 10.66Comment: Testing | % | EXTERNAL | | | | performed at [facility];[address] | | LAB | | | | [address];[place] | | | | | | [address] | | | | + + + + + + | % | 4.38Comment: Testing | % | EXTERNAL | | | Eosinophils | performed at [facility];[address] | | LAB | | | | [address];[place] | | | | | | [address] | | | | + + + + + + | % Basophils | 0.90Comment: Testing | % | EXTERNAL | | | | performed at [facility];[address] | | LAB | | | | [address];[place] | | | | | | [address] | | | | + + + + + + | Absolute | 3.93Comment: Testing | 1.90 - 7.40 | EXTERNAL | | | Segmented | performed at [facility];[address] | K/uL | LAB | | | Neutrophils | [address];[place] | | | | | | [address] | | | | + + + + + + | Absolute | 3.26Comment: Testing | 1.00 - 3.90 | EXTERNAL | | | Lymphocytes | performed at [facility];[address] | K/uL | LAB | | | | [address];[place] | | | | | | [address] | | | | + + + + + + | Absolute | 0.91 (H)Comment: Testing | 0.00 - 0.80 | EXTERNAL | | | Monocytes | performed at [facility];[address] | K/uL | LAB | | | | [address];[place] | | | | | | [address] | | | | + + + + + + | Absolute | 0.38Comment: Testing | 0.00 - 0.50 | EXTERNAL | | | Eosinophils | performed at [facility];[address] | K/uL | LAB | | | | [address];[place] | | | | | | [address] | | | | + + + + + + | Absolute | 0.08Comment: Testing | 0.00 - 0.10 | EXTERNAL | | | Basophils | performed at [facility];[address] | K/uL | LAB | | | | [address];[place] | | | | | | [address] | | | | + + + + + + | RBC | 1+Comment: | | EXTERNAL | | | Morphology | HYPO2+MICRONORMAL PLT | | LAB | | | | MORPHTesting performed | | | | | | at [facility];[address];[place] [address] | | | | | |NORMAL PLT MORPH | | | | | |Testing performed at [facility];[address];[place] [address] | | | | | | | | | | + + + + + + | Platelet | ADEQUATEComment: Testing | | EXTERNAL | | | Estimate | performed at [facility];[address] | | LAB | | | | [address];[place] | | | | | | [address] | | | | + + + + + + | Na | 139Comment: Testing | 135 - 143 | EXTERNAL | | | | performed at [facility];[address] | mmol/L | LAB | | | | [address];[place] | | | | | | [address] | | | | + + + + + + | K | 4.0Comment: Testing | 3.5 - 4.9 | EXTERNAL | | | | performed at [facility];[address] | mmol/L | LAB | | | | [address];[place] | | | | | | [address] | | | | + + + + + + | Cl | 105Comment: Testing | 99 - 109 mmol/L | EXTERNAL | | | | performed at [facility];[address] | | LAB | | | | [address];[place] | | | | | | [address] | | | | + + + + + + | CO2 | 27Comment: Testing | 23 - 32 mmol/L | EXTERNAL | | | | performed at [facility];[address] | | LAB | | | | [address];[place] | | | | | | [address] | | | | + + + + + + | Anion Gap | 10Comment: Testing | 5 - 20 mmol/L | EXTERNAL | | | | performed at [facility];[address] | | LAB | | | | [address];[place] | | | | | | [address] | | | | + + + + + + | Glucose, | 259 (H)Comment: Testing | 65 - 99 mg/dL | EXTERNAL | | | Fasting | performed at [facility];[address] | | LAB | | | | [address];[place] | | | | | | [address] | | | | + + + + + + | BUN | 15Comment: Testing | 8 - 25 mg/dL | EXTERNAL | | | | performed at [facility];[address] | | LAB | | | | [address];[place] | | | | | | [address] | | | | + + + + + + | Creatinine | 0.85Comment: Testing | 0.70 - 1.30 | EXTERNAL | | | | performed at [facility];[address] | mg/dL | LAB | | | | [address];[place] | | | | | | [address] | | | | + + + + + + | BUN/Creatin | 17Comment: Testing | | EXTERNAL | | | ine Ratio | performed at [facility];[address] | | LAB | | | | [address];[place] | | | | | | [address] | | | | + + + + + + | Calcium | 8.4 (L)Comment: Testing | 8.5 - 10.5 | EXTERNAL | | | | performed at [facility];[address] | mg/dL | LAB | | | | [address];[place] | | | | | | [address] | | | | + + + + + + | Protein, | 6.6Comment: Testing | 6.3 - 8.2 g/dL | EXTERNAL | | | Total | performed at [facility];[address] | | LAB | | | | [address];[place] | | | | | | [address] | | | | + + + + + + | Albumin | 2.9 (L)Comment: Testing | 3.3 - 4.8 g/dL | EXTERNAL | | | | performed at [facility];[address] | | LAB | | | | [address];[place] | | | | | | [address] | | | | + + + + + + | Globulin | 3.7Comment: Testing | 1.3 - 4.9 g/dL | EXTERNAL | | | | performed at [facility];[address] | | LAB | | | | [address];[place] | | | | | | [address] | | | | + + + + + + | A/G Ratio | 0.8 (L)Comment: Testing | 1.0 - 2.4 | EXTERNAL | | | | performed at [facility];[address] | | LAB | | | | [address];[place] | | | | | | [address] | | | | + + + + + + | Bilirubin | 0.2Comment: Testing | 0.1 - 1.5 mg/dL | EXTERNAL | | | Total | performed at [facility];[address] | | LAB | | | | [address];[place] | | | | | | [address] | | | | + + + + + + | ALP, | 137 (H)Comment: Testing | 35 - 115 U/L | EXTERNAL | | | External | performed at [facility];[address] | | LAB | | | | [address];[place] | | | | | | [address] | | | | + + + + + + | AST | 14Comment: Testing | 10 - 45 U/L | EXTERNAL | | | | performed at [facility];[address] | | LAB | | | | [address];[place] | | | | | | [address] | | | | + + + + + + | ALT | 21Comment: Testing | 10 - 65 U/L | EXTERNAL | | | | performed at [facility];[address] | | LAB | | | | [address];[place] | | | | | | [address] | | | | + + + [...] | | | | | | at [facility];[address] | | | | | | [address];[place] [address] | | | | + + + + + + | CK, Total | 95Comment: Testing | 55 - 400 U/L | EXTERNAL | | | | performed at [facility];[address] | | LAB | | | | [address];[place] | | | | | | [address] | | | | + + + + + + | INR | 3.0Comment: REFERENCE | | EXTERNAL | | | [...] | | | | | performed at [facility];[address] | | | | | | [address];[place] | | | | | | [address] | | | | + + + + + + | aPTT, | 34 (H)Comment: Testing | 23 - 32 seconds | EXTERNAL | | | Patient | performed at [facility];[address] | | LAB | | | | [address];[place] | | | | | | [address] | | | | + + + + + + | CK-MB | 2.4Comment: Testing | 0.5 - 3.6 ng/mL | EXTERNAL | | | | performed at [facility];[address] | | LAB | | | | [address];[place] | | | | | | [address] | | | | + + + + + + | CK-MB Index | 2.5Comment: CK INDEX [...] + +---------+ + + ECG 12 lead (01/18/2015 6:19 AM PST) + + + + + [...] of | | | | | | 28-DEC-2014 06:48,No | | | | | | significant [...] | | | | | ONLY, -COMPUTER ([id number]), | | | | | | newspaper editor managing Nola Avila | | | | | | (15) on 01/18/2015 | | | | | | 4:06:16 PM | | | | + + + + + + + + | Specimen | + + | | + + + + + | Narrative | Performed At | + + + | Historically converted procedure from [facility] Epic environment | EXTERNAL LAB | + + + + +---------+ + + | Performing | Address | City/State/Zipcode | Phone Number | | Organization | | | | + +---------+ + + | EXTERNAL LAB | | | | + +---------+ + + documented in this encounter Visit Diagnoses + + | Diagnosis | + + | Hyperglycemia due to type 2 diabetes mellitus (HCC) | + + | Chronic chest pain Chest pain, unspecified | + + documented in this encounter
--- OUTSIDE RECORDS SUMMARY | ~2019-10-12 | XMS | Encounter Summary ---
Demographics + + + | Address | [address] | | | [place] [address] | + + + | Home Phone [...] + | Sammi Kohler | ECON | [place] [address] | | + + + + + Care Team Providers + +------+ + | Care Brush Sander Name | Role | Phone | + [...] + + | Closed | Specialty | Geriatric | Diagnoses | Sirena, | Joec | | | Services | Medicine | Advance | Mireya Calixto NP | Advanced Care | | | Required | | care | [address] | Planning | | | | | planning | [address] | [address] | | | | | | [address] | [place], | | | | | | [place], [place] | [place] [address] | | | | | | [address] | Phone: | | | | | | Phone: | [phone] | | | | | | [phone] | Fax: | | | | | | Fax: | [phone] | | | | | | [phone] | | +--------+ + + + + + Reason for Visit + +--------+ + | Reason | Onset | Comments | | | Date | | + +--------+ + | TCM - Bita KNOWLES | 01/07/ | | | | 2018 | | + +--------+ + Encounter Details +--------+ + + + + | Date | Type | Department | Care Team | Description | +--------+ + + + + | 01/07/ | Telephone | [facility] | Sanjuanita Rodriguez RN | [facility] | | 2018 | | RETURNED [employer] INSPECTOR | | | | | | MANAGEMENT [address] | | | | | [address] | | | | | | [place] | | | | | | [address] | | | | | | [phone] | | | +--------+ + + + [...] Telephone Encounter - Sanjuanita Rodriguez RN - 01/07/2019 10:55 AM PSTFormatting of this note m ight be different from the original. SITUATION Transitional Care Management for follow-up on discharge from: Hospital Outpatient Observation or Partial Hospitalization Eligible for TCM Billing LOS [id number]? No. Last patient discharge was 12/13/2018 with a TCM eligible appointment 12/26/2018. Patient questions/concerns needing provider review: None at this time. BACKGROUND Admission Date: 01/03/19 Discharge Date: 01/05/19 Discharge Disposition: Home or Self Care Principle Discharge Diagnosis: Other chest pain Active Problems: Dizziness Active Problems: Fall from ground level Uncontrolled type 2 diabetes mellitus with hyperglycemia COPD (chronic obstructive pulmonary disease) KESHAWN (acute kidney injury) Chronic anticoagulation Developmental delay Resolved Problems: * No resolved hospital problems. * ASSESSMENT General: How are you doing since you returned home?: Patient states, "I am okay, my aid was here thi s morning and I go see my doctor on Monday at 11" Did you receive discharge instructions? yes Do you have any questions about the instructions? no Does patient have advanced directive? No, Referral to ACP Patient Reported Review of Symptoms: (documentation by exception) dizziness/lightheadedness - patient reports that dizziness has only decreased a little bit with Meclizine. He has had no further falls, and is using his cane for ambulation. Diet: Diet restrictions: Diabetic Difficulties managing your dietary restrictions? yes - I just don't want to Medication Literacy: Were you able to supervisor picking crew your medications after discharge? Yes Reviewed all medications/supplements and any changes? No Do you manage your own medications? Yes - How do you keep track of when to take your medica tions? Bubble packed from pharmacy. Patient understands the purpose of the medications: Yes Patient understands when to take the medications: Yes What questions do you have questions regarding your medications? None Medication Management Interventions: None at this time. Patient was advised to please bring in all medications to the visit: yes Discharge needs: Has equipment: 3 point cane Receives help from: home care agency aide 3 days per week (20 hours/month). Uses [employer] for transportation. RECOMMENDATION Disposition: Continue home care Future Appointments Date Time Provider Department Center 01/09/2019 11:00 AM [facility] Any other Specialists, Out-patient Therapy or Diagnostics/Labs: NA Patient Education: See your doctor or nurse right away if you have vertigo and: ?Have a new or severe headache ?Have a fever higher than 100.4F (38C) ?Start to see double or have trouble seeing clearly ?Have trouble speaking or hearing ?Have weakness in an arm or leg or your face droops to one side ?Cannot walk on your own ?Pass out ?Have numbness or tingling ?Have chest pain ?Cannot stop vomiting Triage protocol used?: no Call Back Instructions: Will conduct a chart review after follow up appointment with primary care provider to evalu ate for further follow up needs. Provided office contact information, phone [phone] Of fice hours 0730 - 1500. Informant verbalized understanding. No learning barriers noted. [...] | | | | | [address] [place], | | | | | | [place] [address] | | | | | | [phone] | | | | | | | | +--------+ + + + + + + +--------+ + + | Name | Type | Priori | Associated Diagnoses | Order Schedule | | | | ty | | | + + +--------+ + + | Ambulatory Referral | Outpatient | Routin | Advance care | Ordered: 01/07/2019 | | jeronimo Ramirez Advanced | Referral | e | planning | | | Care Planning | | | | | + + +--------+ + + documented as of this encounter Visit Diagnoses + + | Diagnosis | + + | Advance care planning - Primary Other specified counseling | + + documented in this encounter
--- OUTSIDE RECORDS SUMMARY | ~2019-10-12 | XMS | Encounter Summary ---
Demographics + + + | Address | [address] | | | [place] [address] | + + + | Home Phone [...] | Sammi Kohler | ECON | [place] [address] | | + + + + + Care Team Providers + +------+ + | Care Tacking Stitch Remover Name | Role | Phone | + +------+ + | Mireya Pack NP | PCP | | + +------+ + Reason for Visit +--------+ + | Reason | Comments | +--------+ + | Other | levi HERNANDEZ : BP today | +--------+ + Encounter Details +--------+ + + + + | Date | Type | Department | Care Team | Description | +--------+ + + + + | 06/19/ | Telephone | [facility] | Lucia Amos | Other (just FYI : BP | | 2019 | | [facility] | S, RN | today) | | | | [address] | | | | | | [place], [place] | | | | | | [address] | | | | | | [phone] | | | +--------+ + + + [...] Telephone Encounter - Lucia Amos RN - 06/25/2019 3:19 PM PDTCall placed to patien t, no answer, left VM with clinic phone number. elephone Encounter - Lucia Amos RN - 06/24/2019 3:59 PM PDTCall placed to patient, no answer, unable to leave a VM. elephone Encounter - Myriam Gary Drier Operator - 06/24/2019 11:46 AM PDTAttempted to call patient x2. Did not answer and unable to leave VM. elephone Encounter - Mireya Pack NP - 06/21/2019 9:45 AM PDTNoted, please than k patient for BP report, his blood pressure is at goal (no changes needed) elephone Encounter - Lucia Amos RN - 06/20/2019 1:15 PM PDTCall returned to patient, c/o BP 144/66, h e did not get the pulse. No chest pain, no SOB. No other symptoms. He said he is just report ing about his BP reading today. Routed to PCP as MARY. elephone Encounte r - Lucia Amos RN - 06/20/2019 1:09 PM PDTFormatting of this note might be differe nt from the original. Saulo Palomares 1 hour ago (11:44 AM) Rosendo, is returning call for Triage and would like a call back. Additional Call Details: Kevyn is calling. Please call him at [phone] documented in this encounter Plan of Treatment +--------+ + + + + | Date | Type | Specialty | Care Team | Description | +--------+ + + + + | 10/16/ | Anti-coag | Anticoagulation | Brittany Zaragoza | | | 2019 | visit | | [address] | | | | | | [facility], | | | | | | [place] [address] | | | | | | [phone] | | | | | | | | +--------+ + + + + documented as of this encounter Visit Diagnoses Not on filedocumented in this encounter"
--- OUTSIDE RECORDS SUMMARY | ~2019-10-12 | XMS | Encounter Summary ---
Demographics + + + | Address | [address] | | | [place] [address] | + + + | Home Phone [...] + | Sammi Kohler | ECON | [place] [address] | | + + + + + Care Team Providers + +------+ + | Care Shop Technician Name | Role | Phone | + +------+ + PCP | Unavailable | + +------+ + Encounter Details +--------+ + + + + | Date | Type | Department | Care Team | Description | +--------+ + + + + | 01/13/ | Emergency | [facility] | Elmo Souza | Fall, subsequent | | 2013 | | [facility] [place] [facility] | DO Norah [address] | encounter; Back pain | | | | [facility] [place] | [address] | | | | | [address] | [place] [address] | | | | | [place] | [phone] | | | | | [address] | | | | | | [phone] | | | +--------+ + + + [...] 01/13/142055 Date of Service: 01/13/142054 Status: Signed Harness Rigger: Jane Lagos (Technologist) Pt back to room from xray. Jane Lagos 01/13/142055 renchadwick hewitt, Kristian Máruqez PA-C - 01/13/2014 8:34 PM PST ED Provider Notes by Kristian Nunez PA-C at 01/13/142033 Author: Kristian Nunez PA-C Service: Emergency Department Author Type: Physician A ssistant - Certified Filed: 01/14/14115 Date of Service: 01/13/142033 Status: Attested Harness Rigger: Kristian Nunez PA-C (Physician Warp Clamper - Certified) Cosigner: Elmo Souza DO at 01/14/14255 Attestation signed by Elmo Souza DO at 01/14/14255 I was present for veronica portions of this patient's care during their visit today. I supervis ed the midlevel provider in their care provided at this visit. ELMO SOUZA Procedures [facility] Department of Emergency Medicine HPI [...] - CHOLECYSTECTOMY; Surgeon: Jevon Vargas DO; Location: [facility] MAIN OR; Service: General; Laterality: N/A; Abdominal surgery Cholecystectomy Skin cancer excision 10/10/2012 Procedure: EXCISION - SKIN CANCER; Surgeon: Sy Fierro MD; Location: [facility] MAIN OR ; Service: Plastics; Laterality: Left; upper arm and upper back w/frozen section Esophagogastroduodenoscopy 03/03/2013 Procedure: ESOPHAGOGASTRODUODENOSCOPY; Surgeon: Howie Gibson MD; Location: [facility] ENDOSCOPY; S ervice: Gastroenterology; Laterality: N/A; Colonoscopy 03/04/2013 Procedure: COLONOSCOPY; Surgeon: Howie Gibson MD; Location: [facility] ENDOSCOPY; Service: Gastroe nterology; Laterality: N/A; Upper gastrointestinal endoscopy Skin biopsy Hernia repair 07/03/2013 Procedure: LAPAROSCOPIC - HERNIA - INCISIONAL; Surgeon: Jevon Vargas DO; Location: [facility] MAIN OR; Service: General; Laterality: N/A; Prior to Admission medications Medication Sig Start Date End Date Taking? Authorizing Provider Albuterol Sulfate (VENTOLIN HFA IN) Inhale 2 puffs into the lungs as needed. 108 mcg/act Yes Historical Provider Ookjh-W-Zhklnglaufioe (BEANO) TABS Take 150 Units by mouth [...] by mouth nightly. Yes Historical Provide r lcbzcmgsn-mfyfuinl-bssokizay hydroxide-simethicone Take 40 mLs by mouth daily [...] ay results returned just before Arrived to pick up attendant the patient, patient signed discharge pap erwork [...] a visit For follow up [address] [address] [facility] in [place] As needed, If symptoms worsen [address] [facility] [address] Discharge Medications: Discharge Medication List as of 01/13/2014 9:15 PM Kristian Nunez PA-C 01/14/14 0116 Elmo Souza DO 01/14/14 0256 docuchaz light in this encounter Plan of Treatment [...] | | | | | | [place] [address] | | | | | | [phone] | | | | | | | [...] + + + | NORAH GR XR LUMBAR SPINE LIMITED 2-3 [...] Ramos Conversion - 09/21/2018 3:31 PM PDT NORAH GRXR LUMBAR SPINE LIMITED | | 2-3 VIEW01/13/2014 [...]
--- OUTSIDE RECORDS SUMMARY | ~2019-10-12 | XMS | Encounter Summary ---
Demographics + + + | Address | [address] | | | [place] [address] | + + + | Home Phone [...] + | Sammi Kohler | ECON | [place] [address] | | + + + + + Care Team Providers + +------+ + | Care Graduate Internship Name | Role | Phone | + +------+ + PCP | Unavailable | + +------+ + Encounter Details +--------+ + + + + | Date | Type | Department | Care Team | Description | +--------+ + + + + | 02/04/ | Emergency | [facility] | | Chest pain | | 2013 | | [facility] | | | | | | EM[facility]Y [facility]ENTER | | | | | | [address] | | | | | | [place], [place] | | | | | | [address] | | | | | | [phone] | | | +--------+ + + + [...] 02/04/142111 Date of Service: 02/04/142111 Status: Signed [employer] Strip Inspector: Vadim Bernal RN (Registered Nurse) Dr Nugent at bedside. Vadim Bernal RN 02/04/142111 onver ivana Transaction, Provider Unknown - 02/04/2014 7:03 PM PST ED Notes by Vadim Bernal RN at 02/04/141902 Author: Vadim Bernal RN Service: (none) Author Type: Registered Nurse Filed: 02/04/141902 Date of Service: 02/04/141902 Status: Signed [employer] Strip Inspector: Vadim Bernal RN (Registered Nurse) Bedside report [...] 02/04/141826 Date of Service: 02/04/141825 Status: Signed [employer] Strip Inspector: Omaira Leslie RN (Registered Nurse) "I passed out at 7:30 this morning laying down watching TV, at 10:00 this morning walking t o the bathroom, and the third time walking in my living room." Patient denies hitting head o n any occasion, but c/o headache. Omaira Leslie RN 02/04/141826 rabtr jaren, Marcos Preston MD - 02/04/2014 6:25 PM PST ED Provider Notes by Marcos Nugent MD at 02/04/141824 Author: Marcos Nugent MD Service: (none) Author Type: Physician Filed: 02/04/142114 Date of Service: 02/04/141824 Status: Signed [employer] Strip Inspector: Marcos Nugent MD (Physician) [facility] Department of Emergency Medicine History of [...] CHOLECYSTECTOMY; Surgeon: Jevon Vargas DO; Location: [facility]; Service: General; Laterality: N/A; Abdominal surgery Cholecystectomy Skin cancer excision 10/10/2012 Procedure: EXCISION - SKIN CANCER; Surgeon: Sy Fierro MD; Location: [facility] ; Service: Plastics; Laterality: Left; upper arm and upper back w/frozen section Esophagogastroduodenoscopy 03/03/2013 Procedure: ESOPHAGOGASTRODUODENOSCOPY; Surgeon: Howie Gibson MD; Location: [facility]; S ervice: Gastroenterology; Laterality: N/A; Colonoscopy 03/04/2013 Procedure: COLONOSCOPY; Surgeon: Howie Gibson MD; Location: [facility]; Service: Gastroe nterology; Laterality: N/A; Upper gastrointestinal endoscopy Skin biopsy Hernia repair 07/03/2013 Procedure: LAPAROSCOPIC - HERNIA - INCISIONAL; Surgeon: Jevon Vargas DO; Location: [facility]; Service: General; Laterality: N/A; Prior to Admission medications Medication Sig Start Date End Date Taking? Authorizing Provider Albuterol Sulfate (VENTOLIN HFA IN) Inhale 2 puffs into the lungs as needed. 108 mcg/act Historical Provider Fbxzd-H-Sqmckqfstbyyl (BEANO) TABS Take 150 Units by mouth [...] daily. 180 mg at hs 11/30/13 11/30/14 [facility] carlyn Mae MD docusate sodium (COLACE) 100 [...] 100 mg by mouth nightly. Historical Provider dkvbdzfms-mfsoqhop-qvpsmcvto hydroxide-simethicone Take 40 mLs by mouth daily [...] of Children: 1 Years of Education: s. [employer] Occupational History disabled Social History Main Topics [...] notes. (Using the electronic record system of [facility]) Previous ED visits for similar and unrelated complaints. Laboratory Evaluation Results Procedure Component Value Ref Range Date/Time POC cardiac troponin [[id number]] Collected: 02/04/142030 Order Status: Completed Updated: 02/04/142044 POC CARDIAC TROPONIN 0.01 0.00 - 0.10 ng/mL Cardiac Panel [[id number]] (Abnormal) Collected: 02/04/14 1823 Order Status: Completed Updated: 02/04/14 1857 WBC 9.9 3.8 - 11.0 K/uL RBC [...] ng/mL CK-MB Index 3.3 POC cardiac troponin [[id number]] Collected: 02/04/141825 Order Status: Completed Updated: 02/04/14 [...] Documented by Marcos Nugent MD (02/04/14 20:32:11, [facility] Emergency [facility], Emergency Medicine) Mild cardiomegaly, no infiltrate, no pleural effusions ED Diagnosis Final diagnosis Chest pain Unknown cause Disposition: ED Disposition Discharge Condition at discharge: Stable Follow-up Information Follow up With Details Comments Contact Info Jerrell Gutiérrez DO Schedule an appointment as soon as possible for a visit in 2 days [phone] [facility] [phone] [facility] Emergency Department If symptoms worsen [address] [address] Discharge Medications: New Prescriptions No new medications This document has been prepared with a voice recognition system. The possibility of "sound alike" quality control operator errors, and additions or deletions may occur. [...] | 10/16/ | Anti-coag | Anticoagulation | Rhawn, Brittany | | | 2020 | visit | | [address] | | | | | | [place], | | | | | | [place] [address] | | | | | | [phone] | | | | | | | [...] CHEST 2 VIEW FRONTAL | | AND KCMGCIP8902/04/2014 8:12 PM HISTORY:58 years. Male. Chest pain [...] | | | | performed at [facility] | | LAB | | | | [address];[place] | | | | | | [address] | | | | + + + + + -+ | Non- | 4.85Comment: Testing | 4.20 - 5.70 | EXTERNAL | | | Red Blood | performed at [facility] | M/uL | LAB | | | Cells | [address];[place] | | | | | Counted | [address] | | | | + + + + + -+ | Hemoglobin | 12.6 (L)Comment: Testing | 13.2 - 17.0 | EXTERNAL | | | | performed at [facility] | g/dL | LAB | | | | [address];[place] | | | | | | [address] | | | | + + + + + -+ | Hematocrit, | 38.7 (L)Comment: Testing | 39.0 - 50.0 % | EXTERNAL | | | POC | performed at [facility];[address] | | LAB | | | | [address];[place] | | | | | | [address] | | | | + + + + + -+ | MCV | 79.8 (L)Comment: Testing | 80.0 - 100.0 fl | EXTERNAL | | | | performed at [facility] | | LAB | | | | [address];[place] | | | | | | [address] | | | | + + + + + -+ | MCH | 26.1 (L)Comment: Testing | 27.0 - 34.0 pg | EXTERNAL | | | | performed at [facility];[address] | | LAB | | | | [address];[place] | | | | | | [address] | | | | + + + + + -+ | MCHC | 32.6Comment: Testing | 32.0 - 35.5 | EXTERNAL | | | | performed at [facility] | g/dL | LAB | | | | [address];[place] | | | | | | [address] | | | | + + + + + -+ | RDW-CV | 42.4Comment: Testing | 37 - 53 fl | EXTERNAL | | | | performed at [facility];[address] | | LAB | | | | [address];[place] | | | | | | [address] | | | | + + + + + -+ | Platelet | 278Comment: Testing | 150 - 400 K/uL | EXTERNAL | | | Count | performed at [facility];[address] | | LAB | | | Plasma | [address];[place] | | | | | | [address] | | | | + + + + + -+ | MPV | 7.8Comment: Testing | fl | EXTERNAL | | | | performed at [facility];[address] | | LAB | | | | [address];[place] | | | | | | [address] | | | | + + + + + -+ | Differentia | AUTOMATEDComment: | | EXTERNAL | | | l Type | Testing performed at | | LAB | | | | [facility];[address];[place] [address] | | | | + + + + + -+ | % Segmented | 66.4Comment: Testing | % | EXTERNAL | | | | performed at [facility];[address] | | LAB | | | Neutrophils | [address];[place] | | | | | | [address] | | | | + + + + + -+ | % | 20.5Comment: Testing | % | EXTERNAL | | | Lymphocytes | performed at [facility];[address] | | LAB | | | | [address];[place] | | | | | | [address] | | | | + + + + + -+ | % Monocytes | 10.3Comment: Testing | % | EXTERNAL | | | | performed at [facility];[address] | | LAB | | | | [address];[place] | | | | | | [address] | | | | + + + + + -+ | % | 1.8Comment: Testing | % | EXTERNAL | | | Eosinophils | performed at [facility];[address] | | LAB | | | | [address];[place] | | | | | | [address] | | | | + + + + + -+ | % Basophils | 1.0Comment: Testing | % | EXTERNAL | | | | performed at [facility];[address] | | LAB | | | | [address];[place] | | | | | | [address] | | | | + + + + + -+ | Absolute | 6.6Comment: Testing | 1.9 - 7.4 K/uL | EXTERNAL | | | Segmented | performed at [facility];[address] | | LAB | | | Neutrophils | [address];[place] | | | | | | [address] | | | | + + + + + -+ | Absolute | 2.0Comment: Testing | 1.0 - 3.9 K/uL | EXTERNAL | | | Lymphocytes | performed at [facility];[address] | | LAB | | | | [address] | | | | | | [address] | | | | + + + + + -+ | Absolute | 1.0 (H)Comment: Testing | 0 - 0.8 K/uL | EXTERNAL | | | Monocytes | performed at [facility];[address] | | LAB | | | | [address];[place] | | | | | | [address] | | | | + + + + + -+ | Absolute | 0.2Comment: Testing | 0 - 0.5 K/uL | EXTERNAL | | | Eosinophils | performed at [facility];[address] | | LAB | | | | [address];[place] | | | | | | [address] | | | | + + + + + -+ | Absolute | 0.1Comment: Testing | 0 - 0.1 K/uL | EXTERNAL | | | Basophils | performed at [facility];[address] | | LAB | | | | [address];[place] | | | | | | [address] | | | | + + + + + -+ | Na | 138Comment: Testing | 135 - 143 | EXTERNAL | | | | performed at [facility];[address] | mmol/L | LAB | | | | [address];[place] | | | | | | [address] | | | | + + + + + -+ | K | 3.9Comment: Testing | 3.5 - 4.9 | EXTERNAL | | | | performed at [facility];[address] | mmol/L | LAB | | | | [address];[place] | | | | | | [address] | | | | + + + + + -+ | Cl | 104Comment: Testing | 99 - 109 mmol/L | EXTERNAL | | | | performed at [facility];[address] | | LAB | | | | [address];[place] | | | | | | [address] | | | | + + + + + -+ | CO2 | 29Comment: Testing | 23 - 32 mmol/L | EXTERNAL | | | | performed at [facility];[address] | | LAB | | | | [address];[place] | | | | | | [address] | | | | + + + + + -+ | Anion Gap | 10Comment: Testing | 5 - 20 mmol/L | EXTERNAL | | | | performed at [facility];[address] | | LAB | | | | [address] | | | | | | [address] | | | | + + + + + -+ | Glucose, | 189 (H)Comment: Testing | 65 - 99 mg/dL | EXTERNAL | | | Fasting | performed at [facility];[address] | | LAB | | | | [address] | | | | | | [address] | | | | + + + + + -+ | BUN | 16Comment: Testing | 8 - 25 mg/dL | EXTERNAL | | | | performed at [facility];[address] | | LAB | | | | [address];[place] | | | | | | [address] | | | | + + + + + -+ | Creatinine | 1.33 (H)Comment: Testing | 0.70 - 1.30 | EXTERNAL | | | | performed at [facility];[address] | mg/dL | LAB | | | | [address] | | | | | | [address] | | | | + + + + + -+ | BUN/Creatin | 12Comment: Testing | | EXTERNAL | | | ine Ratio | performed at [facility];[address] | | LAB | | | | [address];[place] | | | | | | [address] | | | | + + + + + -+ | Calcium | 9.0Comment: Testing | 8.5 - 10.2 | EXTERNAL | | | | performed at [facility];[address] | mg/dL | LAB | | | | [address] | | | | | | [address] | | | | + + + + + -+ | Protein, | 7.5Comment: Testing | 6.3 - 8.2 g/dL | EXTERNAL | | | Total | performed at [facility];[address] | | LAB | | | | [address];[place] | | | | | | [address] | | | | + + + + + -+ | Albumin | 3.5 (L)Comment: Testing | 3.6 - 5.0 g/dL | EXTERNAL | | | | performed at [facility];[address] | | LAB | | | | [address];[place] | | | | | | [address] | | | | + + + + + -+ | Globulin | 4.1Comment: Testing | 1.3 - 4.9 g/dL | EXTERNAL | | | | performed at [facility];[address] | | LAB | | | | [address];[place] | | | | | | [address] | | | | + + + + + -+ | A/G Ratio | 0.9 (L)Comment: Testing | 1.0 - 2.4 | EXTERNAL | | | | performed at [facility];[address] | | LAB | | | | [address];[place] | | | | | | [address] | | | | + + + + + -+ | Bilirubin | 0.3Comment: Testing | 0.1 - 1.5 mg/dL | EXTERNAL | | | Total | performed at [facility];[address] | | LAB | | | | [address];[place] | | | | | | [address] | | | | + + + + + -+ | ALP, | 89Comment: Testing | 35 - 115 U/L | EXTERNAL | | | External | performed at [facility];[address] | | LAB | | | | [address] | | | | | | [address] | | | | + + + + + -+ | AST | 18Comment: Testing | 10 - 45 U/L | EXTERNAL | | | | performed at [facility];[address] | | LAB | | | | [address];[place] | | | | | | [address] | | | | + + + + + -+ | ALT | 23Comment: Testing | 10 - 65 U/L | EXTERNAL | | | | performed at [facility];[address] | | LAB | | | | [address];[place] | | | | | | [address] | | | | + + + [...] | | | | | at [facility];[address] | | | | [address];[place] [address] | | | | + + + + + -+ | CK, Total | 116Comment: Testing | 55 - 400 U/L | EXTERNAL | | | | performed at [facility];[address] | | LAB | | | | [address] | | | | | | [address] | | | | + + + [...] | | | | performed at [facility];[address] | | | | | | [address];[place] | | | | | | [address] | | | | + + + + + -+ | aPTT, | 24Comment: Testing | 23 - 32 seconds | EXTERNAL | | | Patient | performed at [facility];[address] | | LAB | | | | [address];[place] | | | | | | [address] | | | | + + + + + -+ | CK-MB | 3.8 (H)Comment: Testing | 0.5 - 3.6 ng/mL | EXTERNAL | | | | performed at [facility];[address] | | LAB | | | | [address];[place], [place] | | | | | | [address] | | | | + + + [...] | | | | | newspaper editor Keyla Gregory | | | | [...]
--- OUTSIDE RECORDS SUMMARY | ~2019-10-12 | XMS | Encounter Summary ---
Demographics + + + | Address | [address] | | | [place] [address] | + + + | Home Phone [...] + | Sammi Kohler | ECON | [place] [address] | | + + + + + Care Team Providers + +------+ + | Care Trekking Guide Name | Role | Phone | + +------+ + PCP | Unavailable | + +------+ + Encounter Details +--------+ + + + + | Date | Type | Department | Care Team | Description | +--------+ + + + + | 12/12/ | Emergency | [facility] | Yaakov Bridges DO | HTN (hypertension); | | 2012 | | MEDICAL CENTER | [address] | GERD | | | | EMERGENCY CENTER | [address] [place], | (gastroesophageal | | | | [address] | [place] [address] | reflux disease); | | | | [place], [place] | [phone] | Diabetes mellitus | | | | [address] | | type II | | | | [phone] | | | +--------+ + + + [...] ED Notes Conversion Transaction, Provider Unknown - 12/13/2011 1:30 PM PSTFormatting of this note m ight be different from the original. ED Notes by Matilda Lynne RN at 12/13/11 133 Author: Matilda Lynne RN Service: (none) Author Type: Registered Nurse Filed: 12/13/111329 Date of Service: 12/13/111329 Status: Signed Tube Molder Fiberglass: Matlida Lynne RN (Registered Nurse) Patient has finished his lunch and reports he is ready to go home. Matilda Lynne RN 12/13/111329 onver ivana Transaction, Provider Unknown - 12/13/2011 1:11 PM PST ED Notes by Itzel Huggins RN at 12/13/11 131 Author: Itzel Huggins RN Service: (none) Author Type: Registered Nurse Filed: 12/13/111310 Date of Service: 12/13/111310 Status: Signed Tube Molder Fiberglass: Itzel Huggins RN (Registered Nurse) Report given to Matilda Huggins RN 12/13/111310 onver ivana Transaction, Provider Unknown - 12/13/2011 1:05 PM PST ED Notes by Matilda Lynne RN at 12/13/11 130 Author: Matilda Lynne RN Service: (none) Author Type: Registered Nurse Filed: 12/13/11 130 Date of Service: 12/13/111304 Status: Signed Tube Molder Fiberglass: Matilda Lynne RN (Registered Nurse) Pt currently eating his lunch. Matilda Lynne RN 12/13/11 130 onver ivana Transaction, Provider Unknown - 12/13/2011 12:26 PM PST ED Notes by Itzel Huggins RN at 12/13/11 1226 Author: Itzel Huggins RN Service: (none) Author Type: Registered Nurse Filed: 12/13/11 1226 Date of Service: 12/13/11 1226 Status: Signed Tube Molder Fiberglass: Itzel Huggins RN (Registered Nurse) Pt back from xray ordering lunch then will discharge home Itzel Huggins RN 12/13/11 1226 onver ivana Transaction, Provider Unknown - 12/13/2011 11:50 AM PST ED Notes by Itzel Huggins RN at 12/13/11 1150 Author: Itzel Huggins RN Service: (none) Author Type: Registered Nurse Filed: 12/13/11 1151 Date of Service: 12/13/11 1150 Status: Signed Tube Molder Fiberglass: Itzel Huggins RN (Registered Nurse) Asa 324 given by ems CAREER DEVELOPMENT FACILITATOR to ED today Itzel Huggins RN 12/13/11 1151 Yaakov urbina DO - 12/13/2011 10:59 AM PSTFormatting of this note might be different from the or iginal. ED Provider Notes by Yaakov Bridges DO at 12/13/11 1059 Author: Yaakov Bridges DO Service: (none) Author Type: Physician Filed: 12/26/11 2346 Date of Service: 12/13/11 1059 Status: Signed Tube Molder Fiberglass: Yaakov Bridges DO (Physician) [facility] Department of Emergency Medicine 10:59 AM 12/13/2011 History of Present Illness Patient Identification Norah Gr is a 55 y.o. male. Patient information was obtained from patient. History/Exam limitations: none. Patient presented to the Emergency Department by: [facility] [id number] JERRELL GUTIÉRREZ DO Chief Complaint Chief Complaint Patient presents with Chest Pain The patient presents with chest pain and L side numbness. The L side numbness is mild and has been present for the past week. The pt's chest pain began 4 days ago with a constant cou rse. The patient describes these symptoms as "tingling" chest pain with intermittent sharpne ss. When asked where the pain is located the pt points to the epigastric area and not the c hest. Pt denies fever/chills, headache, facial pain, rhinorrhea, sore throat, dyspnea, N/V , appetite changes, bowel or bladder habit changes, skin rash, myalgias/arthralgias, gait ab normalities, lymphadenopathy, or new bruising. Past Medical History Diagnosis Date Diabetes mellitus [...] mg by mouth every morning. Historical Provider TAMSULOSIN HCL PO Take 0.4 [...] Negative for: sore throat or dysphagia Cardiovascular/Respiratory: Negative for: shortness of breath, cough Gastrointestinal: Negative for: nausea/vomiting, diarrhea, constipation, black or bloody s tools Positive for epigastric pain Genitourinary: Negative for: dysuria, hematuria, or increased urinary frequency Musculoskeletal: Negative for: joint pain, myalgias, or restriction of range of motion Skin: Negative for: laceration or lesion Neuro and psych: Negative for: fainting, head injury, seizure, trouble walking Positive for: Left sided numbness Endocrine/Heme/Lymph: Negative for: swollen lymph nodes, easy bruising All other systems were reviewed and are subjectively reported as negative. Physical Exam BP 176/93 | Pulse 65 | Temp 97.4 F (36.3 C) | Resp 18 | Ht 1.803 m (5' 11") | Wt 99.791 kg (220 lb) | BMI 30.68 kg/m2 | SpO2 96% Vitals: hypertensive, otherwise normal. Pulse Oximetry Interpretation: Normal General: Alert, in mild distress Eyes: Normal inspection, pupils equal and round, non-icteric ENT: Ears normal Nose normal Pharynx normal Moist mucous membranes, pink appearing Neck: Normal inspection Supple No lymphadenopathy CVS: Bradycardic, and rhythm normal No murmurs Chest wall non-TTP Respiratory: Breath sounds normal bilaterally, normal chest rise and fall, no obvious traum a Abdomen: Soft, non-distended Bowel sounds present Small easily reducible non tender umbilical hernia Mild epigastric TTP No guarding or rebound Back: Moves without difficulty No CVA tenderness Extremities: Moves all extremities No peripheral edema, no calf tenderness to compression Distal pulses palpable in all extremities Skin: Color normal Warm and dry No rash Neuro: No gross motor/sensory deficits noted Medical Decision Making and Emergency Department Course ED Department Course 10:59 AM. Patient presents with epigastric area pain. After gathering and discussing HPI, ROS, PMHX, SurgHx, FmHx, and physically examining the patient I have discussed differential considerations including, but not limited to, GERD, anxiety, electrolyte disturbances, pneum onia, hyperventilatory syndrome, vs other. I have also discussed the testing course to dete rmine potential etiology and determine whether the patient will be safe for outpatient lucero nuing evaluation or will require admission. Pt indicates understanding of expected course o f ED evaluation and care. 11:47 AM Reviewed pt labs. Pt is mildly hypokalemic, slightly hyperglycemic. Awaiting CXR i maging. There is no evidence of infection, anemia, or renal failure. The pt's d-dimer is n egative. No evidence of PE. The pt's troponin is 0.00. 12:01 PM Pt pain is subjectively better and wants to eat. 12.12 PM Pt pain is resolved after GI cocktail and pt wants to go home. I have discussed wi th patient that GERD symptoms can present concurrently with cardiac pathology, pt declines o ffered admission for further cardiac evaluation. I have recommended follow up with PCP for o ut-patient stress testing. 12:39 PM CXR images reviewed. No major abnormalities. No evidence of pneumonia, pneumothor ax, or pleural effusion. Pt with subjectively reported improvement in symptoms. Pt is non-toxic appearing. Labs, i maging, and impressions have been discussed. Expectant outcome discussed. We have also dis cussed emergent RTED instructions. All questions addressed. Pt ready for discharge. The p t was provided with a Rx for Zantac. Records Reviewed Old medical records. Nursing notes. 3 Prior ED visits for similar complaints. Pt most recently seen on Nov 2011 for non cardiac chest pain. Pt had nuclear stress test in Mar 2011 which showed no major abnormalities. Laboratory Evaluation Results Procedure Component Value Ref Range Date/Time Cardiac Panel [[id number]] (Abnormal) Collected:12/13/11 1118 Order Status:Completed Updated:12/13/11 1146 WBC 7.9 3.8 - 11.0 K/uL RBC 4.63 4.20 - 5.70 M/uL HGB 14.0 13.2 - 17.0 g/dL HCT 40.7 39.0 - 50.0 % MCV 87.9 80.0 - 100.0 fl MCH 30.2 27.0 - 34.0 pg MCHC 34.4 32.0 - 35.5 g/dL PLT 287 150 - 400 K/uL MPV 7.3 fl DIFF TYPE AUTOMATED NEUTROPHILS 48.3 40 - 75 % LYMPHOCYTES 35.5 15 - 48 % MONOCYTES 10.6 0 - 12 % EOSINOPHILS 4.5 0 - 7 % BASOPHILS 1.1 0 - 2 % NEUTROPHILS ABS 3.8 1.9 - 7.4 K/uL LYMPHOCYTES ABS 2.8 1.0 - 3.9 K/uL MONOCYTES ABS 0.8 0 - 0.8 K/uL EOSINOPHILS ABS 0.4 0 - 0.5 K/uL BASOPHILS ABS 0.1 0 - 0.1 K/uL SODIUM 139 135 - 143 mmol/L POTASSIUM 3.2 (L) 3.5 - 4.9 mmol/L CHLORIDE 101 99 - 109 mmol/L CO2 29 23 - 32 mmol/L ANION GAP AGAP 12 5 - 20 mmol/L GLUCOSE 143 (H) 65 - 99 mg/dL BUN 12 8 - 25 mg/dL CREATININE 1.18 0.70 - 1.30 mg/dL BUN/CREAT 10 CALCIUM 8.8 8.5 - 10.2 mg/dL TOTAL PROTEIN 7.1 6.3 - 8.2 g/dL Albumin 3.3 (L) 3.6 - 5.0 g/dL GLOBULIN 3.8 1.3 - 4.9 g/dL A/G 0.9 (L) 1.0 - 2.4 TBIL 0.4 0.1 - 1.5 mg/dL ALK PHOS 57 35 - 115 U/L AST 34 10 - 45 U/L ALT 24 10 - 65 U/L EGFR >60 >60 mL/min/1.73m2 CPK 241 55 - 400 U/L INR 1.0 0.9 - 3.5 APTT 26 23 - 32 seconds MMB 2.0 0.5 - 3.6 ng/mL CK-MB Index 0.8 POC cardiac troponin [[id number]] Collected:12/13/11 1122 Order Status:Completed Updated:12/13/11 1142 POC CARDIAC TROPONIN 0.00 0.00 - 0.10 ng/mL D-dimer, quantitative [[id number]] Collected:12/13/11 1118 Order Status:Completed Updated:12/13/11 1139 Specimen Information:Blood D DIMER,QUANT 0.36 0.00 - 0.49 ug/mL FEU Radiology and EKG Evaluation Imaging Results XR Chest PA and Lateral (Final result) Result time:12/13/11 1238 Final result by Rad Results In Richard (12/13/11 12:38:35) Narrative: [facility] XR CHEST 2 VIEW FRONTAL AND LATERAL 12/13/2011 12:09 PM HISTORY: 55 years. Male. Chest pain. TECHNIQUE: XR CHEST 2 VIEW FRONTAL AND LATERAL. 2 view(s) obtained. COMPARISON: 11/24/2011. FINDINGS: The heart is normal in size. The lungs are normally expanded. The pulmonary vascular p attern is normal. No acute airspace disease, parenchymal nodule, mass, pleural effusion or pneumothorax is noted. No hilar adenopathy is seen. Thoracic spondylosis is noted. IMPRESSION: 1. No acute airspace disease. Interpretation: Time: 11:03 Rate: 51 Rhythm: Sinus bradycardia [place]: Normal RICHARD: Normal QRS: Normal ST waves: No acute ST-T wave changes Other: None Prior EKG for comparison: 11/24/11 Acute ischemia suggested: No Independently reviewed and interpreted contemporaneously by myself. Yaakov Bridges D.O. Labs and imaging reviewed. All pertinent positives noted and addressed. Results have been discussed with the patient. ED Diagnoses Final diagnoses HTN (hypertension) GERD (gastroesophageal reflux disease) Diabetes mellitus type II Chest pain, resolved Disposition: ED Disposition Orders Discharge Condition at discharge: Good Follow-up Information Follow up With Details Comments Contact Info Jerrell Gutiérrez DO Make an appointment [address] [facility] [phone] [facility] EM[facility]PARTMENT If symptoms worsen [address] [facility] [address] Discharge Medications: New Prescriptions RANITIDINE (ZANTAC) 150 MG TABLET Take 1 tablet by mouth 2 (two) times daily. Additional Documentation Procedures Attending Note: Documentation assistance provided by Sammy John (Scribe). Information recorded by the scribe has been reviewed and validated by me. I ag qian with its contents. DO Yaakov Emanuel DO 12/26/11 7309 onversion Transjulieta sanchez, Provider Unknown - 12/13/2011 10:55 AM PST ED Notes by Saulo Gutiérrez at 12/13/11 1052 Author: Saulo Gutiérrez Service: (none) Author Type: Marble Installer Filed: 12/13/11 1055 Date of Service: 12/13/111054 Status: Signed Tube Molder Fiberglass: Saulo Gutiérrez (Marble Installer) Bed:12
Expected date:12/13/11
Expected time:10:49 AM
Means of arrival:
Comm ents:
EMS docume nted in this encounter Plan of Treatment +--------+ + + + + | Date | Type | Specialty | Care Team | Description | +--------+ + + + + | 10/16/ | Anti-coag | Anticoagulation | Brittany Zaragoza | | | 2019 | visit | | [address] | | | | | | [address] [place], | | | | | | [place] [address] | | | | | | [phone] | | | | | | | | +--------+ + + + + documented as of this encounter Procedures + +--------+ + + + | Procedure Name | Priori | Date/Time | Associated Diagnosis | Comments | | | ty | | | | + +--------+ + + + | XR CHEST 2 VIEWS | Routin | 12/13/2011 | | Results for this | | | e | 12:19 PM | | procedure are in the | | | | PST | | results section. | + +--------+ + + + documented in this encounter Results XR Chest 2 Vws (12/13/2011 12:19 PM PST) + + | Specimen | + + | | + + + + + | Narrative | Performed At | + + + | [facility] XR CHEST 2 VIEW FRONTAL AND LATERAL 12/13/2011 12:09 | | | PM HISTORY: 55 years. Male. Chest pain. TECHNIQUE: XR | | | CHEST 2 VIEW FRONTAL AND LATERAL. 2 view(s) obtained. | | | COMPARISON: 11/24/2011. FINDINGS: The heart is normal in | | | size. The lungs are normally expanded. The pulmonary vascular | | | pattern is normal. No acute airspace disease, parenchymal nodule, | | | mass, pleural effusion or pneumothorax is noted. No hilar adenopathy | | | is seen. Thoracic spondylosis is noted. IMPRESSION: 1. No | | | acute airspace disease. | | + + + + + | Procedure Note | + + | Richard, Rad Conversion - 09/29/2018 12:47 AM PDT [facility] GRXR CHEST 2 VIEW FRONTAL | | AND AZHBUCG95/6/2012 12:09 PM HISTORY:55 years. Male. Chest pain. TECHNIQUE:XR CHEST 2 | | VIEW FRONTAL AND LATERAL. 2 view(s) obtained. COMPARISON:11/24/2011. FINDINGS: The | | heart is normal in size. The lungs are normally expanded. The pulmonary vascular | | pattern is normal. No acute airspace disease, parenchymal nodule, mass, pleural | | effusion or pneumothorax is noted. No hilar adenopathy is seen. Thoracic spondylosis | | is noted. IMPRESSION:1. No acute airspace disease. | |XR CHEST 2 VIEW FRONTAL AND LATERAL. 2 view(s) obtained. | | | |COMPARISON: | |11/24/2011. | | | |FINDINGS: | | The heart is normal in size. The lungs are normally expanded. The pulmonary vascular p attern is normal. No acute airspace disease, parenchymal nodule, mass, pleural effusion or pneumothorax is noted. No hilar adenopathy is seen. Thoracic | |spondylosis is noted. | | | |IMPRESSION: | |1. No acute airspace disease. | | | | | + + documented in this encounter Visit Diagnoses + + | Diagnosis | + + | HTN (hypertension) Unspecified essential hypertension | + + | GERD (gastroesophageal reflux disease) Esophageal reflux | + + | Diabetes mellitus type II Type II or unspecified type diabetes mellitus without | | mention of complication, not stated as uncontrolled | + + documented in this encounter
--- OUTSIDE RECORDS SUMMARY | ~2019-10-12 | XMS | Encounter Summary ---
Demographics + + + | Address | [address] | | | [place] [address] | + + + | Home Phone [...] Sammi Kohler | ECON | [place] [address] | | + + + + + Care Team Providers + +------+ + | Care Technical Specialist Cytology Name | Role | Phone | + +------+ + | Mireya Pack NP | PCP | | + +------+ + Reason for Visit +--------+--------+ + | Reason | Onset | Comments | | | Date | | +--------+--------+ + | Other | 09/25/ | | | | 2020 | | +--------+--------+ + Encounter Details +--------+ + + + + | Date | Type | Department | Care Team | Description | +--------+ + + + + | 09/25/ | Telephone | [facility] | Mireya Pack, | Other | | 2020 | | [facility] [address] | [place] [employer] [address] | | | | | [address] | [address], | | | | | [place], [place] | [place] [address] | | | | | [address] | [phone] | | | | | [phone] | | | +--------+ + + + [...] Telephone Encounter - Lucia Amos RN - 09/26/2019 3:33 PM PDTCall made to patient, relayed PCP's recommendations, he stated understanding. elephone Encounter - Mireya Pack NP - 0 3:17 PM PDTAgree with extend treatment until next week appointment Please remind patient to nitin edges of rash to leg and notify if redness gets larger (that would be sign to go back to hospital) elephone Encounter - Lucia Amos RN - 09/26/2019 3:05 PM PDTSpoke with patient, he is requesting a ref ill of the antibiotic for the cellulitis of his right leg. He said it is off and on, it got better and then it comes back. He said that he has an apt next week with PCP. Routed to PCP. Do you agree with the refill request of the doxycyline? elephone Encounter - Heidi Moody - 09/26/2019 1:48 PM PDTPatient wants to talk to his nurse. Call him at [phone] Heidi Moody documented in this enco unter [...] | | | | | | [place] [address] | | | | | | [phone] | | | | | | | | +--------+ + + + + documented as of this encounter Visit Diagnoses + + | Diagnosis | + + | Cellulitis of right leg Cellulitis and abscess of leg, except foot | + + documented in this encounter"
--- OUTSIDE RECORDS SUMMARY | ~2019-10-12 | XMS | Encounter Summary ---
Demographics + + + | Address | [address] | | | [place] [address] | + + + | Home Phone [...] Sammi Kohler | ECON | [place] [address] | | + + + + + Care Team Providers + +------+ + | Care Salon Assistant Name | Role | Phone | + +------+ + | Mik Diego DO | PCP | | + +------+ + Encounter Details +--------+ + + + + | Date | Type | Department | Care Team | Description | +--------+ + + + + | 07/29/ | Orders Only | [facility] | Conversion | | | 2014 | | CENTER | Transaction, | | | | | ANTICOAGULATION | Provider Unknown | | | | | [facility] | | | | | | [address] | (Fax) | | | | | [place], [place] | | | | | | [address] | | | | | | [phone] | | | +--------+ + + + [...] 07/29/14 1100 Encounter Date: 07/29/2014 Status: Signed Market Intelligence Consultant: CITLALY Romo (Advanced Registered Nurse Ricky) S- [...] dosing sheet to Leonora Cunha RN at [phone]. Recheck INR in 2 weeks documented in this encounter Plan of Treatment +--------+ + + + + | Date | Type | Specialty | Care Team | Description | +--------+ + + + + | 10/16/ | Anti-coag | Anticoagulation | Brittany Zaragoza | | | 2020 | visit | | [address] | | | | | | [address] [place], | | | | | | [place] [address] | | | | | | [phone] | | | | | | | [...]
--- OUTSIDE RECORDS SUMMARY | ~2019-10-12 | XMS | Encounter Summary ---
Demographics + + + | Address | [address] | | | [place] [address] | + + + | Home Phone [...] | Sammi Kohler | ECON | [place] [address] | | + + + + + Care Team Providers + +------+ + | Care Natural Gas Field Processing Supervisor Name | Role | Phone [...] + + | 03/21/ | Emergency | [facility] | Ashu Bobo | Hemoptysis, one | | 2020 | | MEDICAL CENTER | MD Gordon [address] | episode (Primary | | | | EMERGENCY CENTER | [address]VD [place], [place] | Dx); Uncontrolled | | | | [address] | [address] | type 2 diabetes | | | | [place], [place] | [phone] | mellitus with | | | | [address] | | hyperglycemia (HCC); | | | | [phone] | | Chronic | | | | [...] attachments cannot be sent through Care Everywhere.Hemoptysis ([facility])Hyperglycemia (High Blood Sugar) ([place])documented in this encounter Medications at Time of [...] documented as of this encounter ED Notes Ashu Bobo MD - 03/21/2019 6:18 PM PST [facility] Department of Emergency Medicine No flowsheet [...] of GE junction Hypercholesterolemia 07/08/2013 Hyperlipidemia Hypertension 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 Obesity, Class I, BMI 30-34.9 07/08/2013 WARD (obstructive sleep apnea) 08/11/2012 does not use CPAP because of the noise Other chronic pain Renal failure Stroke ([facility]) TIA (transient ischemic attack) Unspecified visual [...] - INCISIONAL; Surgeon: Jevon Vargas DO; Location: [facility] MAIN OR; Service: General; Laterality: N/A; KNEE SURGERY rt knee, patella LEG SURGERY LLE OTHER SURGICAL HISTORY UNLISTED PROCEDURE ARTHROSCOPY OTHER SURGICAL HISTORY Left 05/05/2014 SKIN LESION EXCISION - Procedure: EXCISION - LESION - FROZEN SECTION; Surgeon: Sy murcia MD; Location: [facility] MAIN OR; [...] file Gets together: Not on file Attends restorationism service: Not on file Active member of [...] Lives alone x 1 wk, moved from [facility], , 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 2 [...] me. Rate: 81. Rhythm: NSR. Ectopy: PACs. [place]: nml. Intervals: nml. Infarct/Isc hemia: Global T-wave [...] Nurse Practitioner - Primary Care Contact information: [address] [place] [address] Discharge Medications: Ashu Bobo MD 03/21/19 193 Marques Mcdaniel RN - 03/21/2019 5:09 PM PSTBed: [id number] Expected date: Expected time: Means of arrival: [...] | | | | | [address] [place], | | | | | | [place] [address] | | | | | | [phone] | | | | | | | [...] | | | 03/21/ | | | 2019 | | | 5:10 | | | [...] M?MRN: | | | | | | [id number] | | | [id number] | | | riteri | | | [...] | | s [facility] | | | [place] | | | [place] | | | [...] | | [facility] | | | [place] | | | [place] | | | [...] | | | [place] | | | Behavioral Health Specialist | | | al | | [...] | LABORATORY | | | | [address];[place], [place] | | | | | | [address] | | | | + + + + + + + + | Specimen | + + | | + + + + + + + | Performing | Address | City/State/Zipcode | Phone Number | | Organization | | | | + + + + + | [facility] | [address] | [place] [address] | [phone] | + + + + + XR [...] + | Richard, Rad Results In - 03/21/2019 7:05 PM PST | | CHEST [...] | | | | Signed by: Irina Jackson Dwane | | Sign Date/Time: 03/21/2019 7:01 PM [...] | <0.4Comment: Testing | <0.5 mg/dL | [facility] | | | | performed at [facility];[address] | | LABORATORY | | | | [address];[place] | | | | | | [address] | | | | + + + + + + + + | Specimen | + + | Blood | + + + + + + + | Performing | Address | City/State/Zipcode | Phone Number | | Organization | | | | + + + + + | [facility] | [address] | [place] [address] | [phone] | + + + + + Troponin [...] | | [facility];[address] [facility] | | | | | | [facility];[place] [address] | | | | + + + + + + + + | Specimen | + + | Blood | + + + + + + + | Performing | Address | City/State/Zipcode | Phone Number | | Organization | | | | + + + + + | [facility] | [address] | [place] [address] | [phone] | + + + + + Comprehensive [...] 26 | 10 - 65 U/L | [facility] [...] | | | | | | [address] [facility];[place], [place] | | | | | | [address] | | | | + + + + + + + + | Specimen | + + | Blood | + + + + + + + | Performing | Address | City/State/Zipcode | Phone Number | | Organization | | | | + + + + + | [facility] | [address] | [place] [address] | [phone] | + + + + + CBC [...] LABORATORY | | | | performed at [facility];[address] | | | | | [address];[place], [place] | | | | | | [address] | | | | + + + + + + + + | Specimen | + + | Blood | + + + + + + + | Performing | Address | City/State/Zipcode | Phone Number | | Organization | | | | + + + + + | [facility] | [address] | [place] [address] | [phone] | + + + + + ECG [...] | | | | scientific publications editor Roberto Stevens | | | | [...] Abdomen- | | novoLIN R) injection (vial) 10 | | 20 7:58 | | | [...]
--- OUTSIDE RECORDS SUMMARY | ~2019-10-12 | XMS | Encounter Summary ---
Demographics + + + | Address | [address] | | | [place] [address] | + + + | Home Phone [...] | Sammi Kohler | ECON | [place] [address] | | + + + + + Care Team Providers + +------+ + | Care Italian Tutor Name | Role | Phone | + +------+ + PCP | Unavailable | + +------+ + Encounter Details +--------+ + + + + | Date | Type | Department | Care Team | Description | +--------+ + + + + | 12/21/ | Emergency | [facility] | Flor, Jose J, | Mild concussion, | | 2015 | | MEDICAL CENTER | [address] | without loss of | | | | EMERGENCY CENTER | [place] [address] | consciousness, | | | | [address] | [phone] | initial encounter; | | | | [place], [place] | | Transient confusion | | | | [address] | | | | | | [phone] | | | +--------+ + + + [...] Author: QUINN Tyson Service: (none) Author Type: Pediatric Critical Care Nurse Filed: 12/21/142221 Date of Service: 12/21/142220 Status: Signed Finger Cobbler: QUINN Tyson (Pediatric Critical Care Nurse) COLTON nj rec'd, 39 ED visits < 12 months. Patient d/c before CM could visit patient. Charly maddox CCP is as follows: COLTON ALERT 12/21/2014 08:19 AM NONA KIM ( ) This patient has registered at the [facility] Emergency Department. Care Providers Provider Type Phone Fax Service Dates CITLALY Funez at [facility] Primary Care 11/21/2011 - Current LOBO TREVIZO Primary Care Current Dr. Thomas Urrutia. DO at [facility] Current ED Care Guidelines from [facility] Last Updated: MonAug 28 15:31:57 MDT 2014 Care Recommendation: The following guidelines were formulated by the ED Care Guidelines Committee of the [facility] Consistent Care Program on April 28, 2011.These are only guidelines and the physician mikey andrade exercise clinical judgment when deciding to follow them. A review on the care plan done on 08/02/2013. Patient's pcp is [facility] in [place]. The ED provider is encourage d to log into the FIRST OFFICER for prescribing history. No controlled substances should be administered in the ED or prescribed from the ED for sub jective pain. Medical / Social Issues Patient has had a total of (1) abdominal CT scan in the year preceding April 28, 2011 witho ut anysignificant findings. Patient was offered a free visit at [facility] to establish care with a PCP Educate patient regarding the proper use of the Emergency Room.Redirect patient to him/her PCP for care that does not require the use of the Emergency Department. This patient is case managed by the [facility] Consistent Care Program. Please contact the contract administration coordinator at your hospital for any immediate or post ED discharge needs this patient m ay have. Additional Information: This patient is case managed by the [facility] Consistent Care Program. Please contact the contract administration coordinator at your hospital for any immediate or post ED discharge needs this patient may have. You may also contact for additional information. These are guidelines and the provider should exercise clinical judgment when providing care . [place] PDMP Report PDMP connection disabled for maintenance. Visit Date Location Type Diagnoses or Chief Complaint 12/21/2014 [facility] Emergency E.D. Visit Count (1 Yr.) Visits [facility] 1 Total 1 Note: Visits indicate total known visits. The above information is provided for the sole purpose of patient treatment. Use of this in formation beyond the terms of Data Sharing Memorandum of Understanding and License Agreement is prohibited. In certain cases not all visits may be represented. Consult the [facility] ed facilities for additional information. MonDec 21 09:19:53 MST 2014 [employer]. [facility], [place] - [email or web address] docume nted in this encounter ED Notes Conversion Transaction, Provider Unknown - 12/21/2014 7:40 AM PSTFormatting of this note m ight be different from the original. ED Notes by Marques Murphy RN at 12/21/14739 Author: Marques Murphy RN Service: (none) Author Type: Registered Nurse Filed: 12/21/14745 Date of Service: 12/21/14739 Status: Signed Finger Cobbler: Marques Murphy RN (Registered Nurse) Pt states, "I woke up this morning and I couldn't rememeber who I was or where I was. I'm a t [facility] now but this morning I didn't know." Marques Murphy RN 12/21/14745 Jose Rios MD - 12/21/2014 7:34 AM PSTFormatting of this note might be different from the o riginal. ED Provider Notes by Jose Flor MD at 12/21/14733 Author: Jose Flor MD Service: (none) Author Type: Physician Filed: 12/21/1457 Date of Service: 12/21/14733 Status: Signed Finger Cobbler: Jose Flor MD (Physician) [facility] Department of Emergency Medicine No flowsheet [...] (HCC) 03/02/2013 COPD (chronic obstructive pulmonary disease) (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 Past Surgical History [...] Fierro MD; Location: [facility] MAIN OR ; Service: Plastics; Laterality: Left; upper arm and upper back w/frozen section Esophagogastroduodenoscopy 03/03/2013 Procedure: ESOPHAGOGASTRODUODENOSCOPY; Surgeon: Howie Gibson MD; Location: [facility] ENDOSCOPY; S ervice: Gastroenterology; Laterality: N/A; Colonoscopy 03/04/2013 Procedure: COLONOSCOPY; Surgeon: Howie Gibson MD; Location: [facility] ENDOSCOPY; Service: Gastroe nterology; Laterality: N/A; Upper gastrointestinal endoscopy Skin biopsy Hernia repair 07/03/2013 Procedure: LAPAROSCOPIC - HERNIA - INCISIONAL; Surgeon: Jevon Vargas DO; Location: [facility] MAIN OR; Service: General; Laterality: N/A; Skin lesion excision Left 05/05/2014 Procedure: EXCISION - LESION - FROZEN SECTION; Surgeon: Sy Fierro MD; Location: [facility] MAIN OR; Service: Plastics; Laterality: Left; forearm Prior to Admission medications Medication Sig Start Date End Date Taking? Authorizing Provider Albuterol Sulfate (VENTOLIN HFA IN) Inhale 2 puffs into the lungs as needed. 108 mcg/act Historical Provider Laisn-S-Ixpukzlntknpq (BEANO) TABS Take 150 Units by mouth [...] 100 mg by mouth nightly. Historical Provider lxrccokhi-ouikfbio-udtwixgpc hydroxide-simethicone Take 40 mLs by mouth daily [...] of Children: 1 Years of Education: s. [employer] Occupational History disabled Social History Main Topics Smoking status: Never Smoker Smokeless tobacco: Never Used Alcohol Use: 0.0 oz/week 1-2 Cans of beer per week Comment: once week, occasionally Drug Use: No Sexual Activity: Not Currently Other Topics Concern Not on file Social History Narrative Lives alone x 1 wk, moved from [facility], , 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 2 [...] Component Value Units Date/Time Comprehensive metabolic panel [[id number]] (Abnormal) Collected: 12/21/14804 Specimen Information: Blood Updated: [...] U/L EGFR >60 mL/min/1.73m2 CBC with differential [[id number]] (Abnormal) Collected: 12/21/14804 Specimen Information: Blood Updated: [...] SLIDE SCANNED, AGREES WITH AUTOMATED RESULTS. [employer] [[id number]] Collected: 12/21/14804 Specimen Information: Blood Updated: 12/21/14830 [...] 21 2014 8:02AM Referring Provider Line : [phone] ID: [id number] Narrative: EXAM: CT HEAD EXAM [...] Gutiérrez, [address] [place] [id number] Discharge Medications: Discharge Medication List as of [...] | | | | | [address] [place], | | | | | | [place] [address] | | | | | | [phone] | | | | | | | [...] + + documented in this encounter Results Christiano MARTINEZ (12/21/2014 8:05 AM PST) + + + [...] | | | performed at [facility] | | | | | | [facility] [facility];[place], [place] | | | | | | [address] | | | | + + + [...] | | | performed at [facility];[address] | K/uL | LAB | | | | [address];[place] | | | | | | [address] | | | | + + + + + + | Non- | 4.89Comment: Testing | 4.20 - 5.70 | EXTERNAL | | | Red Blood | performed at [facility];[address] | M/uL | LAB | | | Cells | [address];[place] | | | | | Counted | [address] | | | | + + + + + + | Hemoglobin | 12.0 (L)Comment: Testing | 13.2 - 17.0 | EXTERNAL | | | | performed at [facility] | g/dL | LAB | | | | [address];[place] | | | | | | [address] | | | | + + + + + + | Hematocrit, | 36.7 (L)Comment: Testing | 39.0 - 50.0 % | EXTERNAL | | | POC | performed at [facility] | | LAB | | | | [address];[place] | | | | | | [address] | | | | + + + + + + | MCV | 75.1 (L)Comment: Testing | 80.0 - 100.0 fl | EXTERNAL | | | | performed at [facility];[address] | | LAB | | | | [address];[place] | | | | | | [address] | | | | + + + + + + | MCH | 24.5 (L)Comment: Testing | 27.0 - 34.0 pg | EXTERNAL | | | | performed at [facility];[address] | | LAB | | | | [address];[place] | | | | | | [address] | | | | + + + + + + | MCHC | 32.6Comment: Testing | 32.0 - 35.5 | EXTERNAL | | | | performed at [facility] | g/dL | LAB | | | | [address];[place] | | | | | | [address] | | | | + + + + + + | RDW-CV | 42.4Comment: Testing | 37 - 53 fl | EXTERNAL | | | | performed at [facility];[address] | | LAB | | | | [address];[place] | | | | | | [address] | | | | + + + + + + | Platelet | 234Comment: Testing | 150 - 400 K/uL | EXTERNAL | | | Count | performed at [facility];[address] | | LAB | | | Plasma | [address];[place] | | | | | | [address] | | | | + + + + + + | MPV | 7.4Comment: Testing | fl | EXTERNAL | | | | performed at [facility];[address] | | LAB | | | | [address];[place] | | | | | | [address] | | | | + + + + + + | Differentia | AUTOMATEDComment: | | EXTERNAL | | | l Type | Testing performed at | | LAB | | | | [facility] | | | | | | [address];[place] [address] | | | | + + + + + + | % Segmented | 54.18Comment: Testing | % | EXTERNAL | | | | performed at [facility];[address] | | LAB | | | Neutrophils | [address];[place] | | | | | | [address] | | | | + + + + + + | % | 27.07Comment: Testing | % | EXTERNAL | | | Lymphocytes | performed at [facility];[address] | | LAB | | | | [address];[place] | | | | | | [address] | | | | + + + + + + | % Monocytes | 9.72Comment: Testing | % | EXTERNAL | | | | performed at [facility];[address] | | LAB | | | | [address];[place] | | | | | | [address] | | | | + + + + + + | % | 8.36Comment: Testing | % | EXTERNAL | | | Eosinophils | performed at [facility];[address] | | LAB | | | | [address];[place] | | | | | | [address] | | | | + + + + + + | % Basophils | 0.67Comment: Testing | % | EXTERNAL | | | | performed at [facility];[address] | | LAB | | | | [address];[place] | | | | | | [address] | | | | + + + + + + | Absolute | 4.54Comment: Testing | 1.90 - 7.40 | EXTERNAL | | | Segmented | performed at [facility];[address] | K/uL | LAB | | | Neutrophils | [address];[place] | | | | | | [address] | | | | + + + + + + | Absolute | 2.27Comment: Testing | 1.00 - 3.90 | EXTERNAL | | | Lymphocytes | performed at [facility];[address] | K/uL | LAB | | | | [address];[place] | | | | | | [address] | | | | + + + + + + | Absolute | 0.82 (H)Comment: Testing | 0.00 - 0.80 | EXTERNAL | | | Monocytes | performed at [facility];[address] | K/uL | LAB | | | | [address];[place] | | | | | | [address] | | | | + + + + + + | Absolute | 0.70 (H)Comment: Testing | 0.00 - 0.50 | EXTERNAL | | | Eosinophils | performed at [facility];[address] | K/uL | LAB | | | | [address];[place] | | | | | | [address] | | | | + + + + + + | Absolute | 0.06Comment: Testing | 0.00 - 0.10 | EXTERNAL | | | Basophils | performed at [facility];[address] | K/uL | LAB | | | | [address];[place] | | | | | | [address] | | | | + + + + + + | RBC | 1+Comment: | | EXTERNAL | | | Morphology | HYPO1+MICRONORMAL PLT | | LAB | | | | MORPHTesting performed | | | | | | at [facility];[address] | | [address];[place] [address] | | | | | |NORMAL PLT MORPH | | | | | |Testing performed at [facility];[address];[place] [address] | | | | | | | | | | + + + + + + | Platelet | ADEQUATEComment: Testing | | EXTERNAL | | | Estimate | performed at [facility];[address] | | LAB | | | | [address];[place] | | | | | | [address] | | | | + + + + + + | Differentia | SLIDE SCANNED, AGREES | | EXTERNAL | | | l Comments | WITH AUTOMATED | | LAB | | | | RESULTS.Comment: Testing | | | | | | performed at [facility];[address] | | | | | | [address];[place], [place] | | | | | | [address] | | | | + + + [...] | | | performed at [facility];[address] | mmol/L | LAB | | | | [address];[place] | | | | | | [address] | | | | + + + + + + | K | 3.6Comment: Testing | 3.5 - 4.9 | EXTERNAL | | | | performed at [facility];[address] | mmol/L | LAB | | | | [address];[place] | | | | | | [address] | | | | + + + + + + | Cl | 107Comment: Testing | 99 - 109 mmol/L | EXTERNAL | | | | performed at [facility];[address] | | LAB | | | | [address];[place] | | | | | | [address] | | | | + + + + + + | CO2 | 28Comment: Testing | 23 - 32 mmol/L | EXTERNAL | | | | performed at [facility];[address] | | LAB | | | | [address];[place] | | | | | | [address] | | | | + + + + + + | Anion Gap | 9Comment: Testing | 5 - 20 mmol/L | EXTERNAL | | | | performed at [facility];[address] | | LAB | | | | [address];[place] | | | | | | [address] | | | | + + + + + + | Glucose, | 178 (H)Comment: Testing | 65 - 99 mg/dL | EXTERNAL | | | Fasting | performed at [facility];[address] | | LAB | | | | [address];[place] | | | | | | [address] | | | | + + + + + + | BUN | 12Comment: Testing | 8 - 25 mg/dL | EXTERNAL | | | | performed at [facility];[address] | | LAB | | | | [address];[place] | | | | | | [address] | | | | + + + + + + | Creatinine | 0.78Comment: Testing | 0.70 - 1.30 | EXTERNAL | | | | performed at [facility];[address] | mg/dL | LAB | | | | [address];[place] | | | | | | [address] | | | | + + + + + + | BUN/Creatin | 16Comment: Testing | | EXTERNAL | | | ine Ratio | performed at [facility];[address] | | LAB | | | | [address];[place] | | | | | | [address] | | | | + + + + + + | Calcium | 8.1 (L)Comment: Testing | 8.5 - 10.5 | EXTERNAL | | | | performed at [facility];[address] | mg/dL | LAB | | | | [address];[place] | | | | | | [address] | | | | + + + + + + | Protein, | 6.6Comment: Testing | 6.3 - 8.2 g/dL | EXTERNAL | | | Total | performed at [facility];[address] | | LAB | | | | [address];[place] | | | | | | [address] | | | | + + + + + + | Albumin | 2.9 (L)Comment: Testing | 3.3 - 4.8 g/dL | EXTERNAL | | | | performed at [facility];[address] | | LAB | | | | [address];[place] | | | | | | [address] | | | | + + + + + + | Globulin | 3.7Comment: Testing | 1.3 - 4.9 g/dL | EXTERNAL | | | | performed at [facility];[address] | | LAB | | | | [address];[place] | | | | | | [address] | | | | + + + + + + | A/G Ratio | 0.8 (L)Comment: Testing | 1.0 - 2.4 | EXTERNAL | | | | performed at [facility];[address] | | LAB | | | | [address];[place] | | | | | | [address] | | | | + + + + + + | Bilirubin | 0.5Comment: Testing | 0.1 - 1.5 mg/dL | EXTERNAL | | | Total | performed at [facility];[address] | | LAB | | | | [address];[place] | | | | | | [address] | | | | + + + + + + | ALP, | 110Comment: Testing | 35 - 115 U/L | EXTERNAL | | | External | performed at [facility];[address] | | LAB | | | | [address];[place] | | | | | | [address] | | | | + + + + + + | AST | 17Comment: Testing | 10 - 45 U/L | EXTERNAL | | | | performed at [facility];[address] | | LAB | | | | [facility] | | | | | | [address] | | | | + + + + + + | ALT | 20Comment: Testing | 10 - 65 U/L | EXTERNAL | | | | performed at [facility];[address] | | LAB | | | | [address];[place] | | | | | | [address] | | | | + + + [...] | | | | at [facility];[address];[place] [address] | | | | + + + [...] Dec 21 2014 8:02AM Referring Provider Line: [phone] ID: [id number] | | + + + [...] 2014 8:02AM Referring Provider | | Line: [phone] ID: [id number] | |Extraaxial Spaces: Normal for [...] 21 2014 8:02AM Referring Provider Line : [phone] ID: [id number] | + + documented in this encounter Visit Diagnoses + + | Diagnosis | + + | Mild concussion, without loss of consciousness, initial encounter | + + | Transient confusion Unspecified psychosis | + + documented in this encounter
--- OUTSIDE RECORDS SUMMARY | ~2019-10-12 | XMS | Encounter Summary ---
Demographics + + + | Address | [address] | | | [place] [address] | + + + | Home Phone [...] + | Sammi Kohler | ECON | [place] [address] | | + + + + + Care Team Providers + +------+ + | Care Anchorman Name | Role | Phone | + +------+ + PCP | Unavailable | + +------+ + Encounter Details +--------+ + + + + | Date | Type | Department | Care Team | Description | +--------+ + + + + | 09/30/ | Orders Only | [facility] | Conversion | | | 2018 | | [facility] | Transaction, | | | | | CARE [address] | Provider Unknown | | | | | [address] [place] | | | | | | [address] | (Fax) | | | | | [phone] | | | +--------+ + + + [...] | | | | | | [place] [address] | | | | | | [phone] | | | | | | | [...]
--- OUTSIDE RECORDS SUMMARY | ~2019-10-12 | XMS | Encounter Summary ---
Demographics + + + | Address | [address] | | | [place] [address] | + + + | Home Phone [...] + | Sammi Kohler | ECON | [place] [address] | | + + + + + Care Team Providers + +------+ + | Care Underwriting Technician Name | Role | Phone | + +------+ + PCP | Unavailable | + +------+ + Encounter Details +--------+ + + + + | Date | Type | Department | Care Team | Description | +--------+ + + + + | 09/22/ | [facility] | [facility] | Oleg Box MD | Chest pain; Diabetes | | 2012 - | Encounter | MEDICAL CENTER | [address] | mellitus type II; | | | | CLINICAL DECISION | [place] [address] | HTN (hypertension); | | 09/23/ | | [address] | [phone] | Atrial fibrillation | | 2012 | | [place], [place] | | (HCC); Other chest | | | | [address] | | pain | | | | [phone] | | | +--------+ + + + [...] documented as of this encounter Discharge Summaries Erasto Bautista DO - 09/24/2011 11:40 AM PDT Discharge Summaries by Erasto Bautista DO at 09/24/11 1140 Author: Erasto Bautista DO Service: (none) Author Type: Physician Filed: 09/24/11 1140 Date of Service: 09/24/11 1140 Status: Signed Staff Editor: Erasto Bautista DO (Physician) [facility] Service: Hospitalist Discharge Summary Date of Admission: 09/23/2011 Date of Discharge: 09/24/2011 Discharge Provider: Erasto Bautista DO Treatment Team: Admitting Provider: Oleg Box MD Discharge Diagnoses: Active Problems: Diabetes mellitus type II Atrial fibrillation Chest pain HTN (hypertension) Resolved Problems: * No resolved hospital problems. * BRIEF HISTORY OF PRESENTATION: Norah Gr is a 55 y.o. male who presented with CP. He had normal stress test in [facility]. HOSPITAL COURSE: Admitted to observation in CDU to hospitalist service. CP was resolved. Repeat troponi n was negative. Telemetry and EKG's unremarkable. No symptoms, complaints or concerns. It wa s decided not to stress patient at this point, as he had normal stress in March. He is as ymptomatic so I will discharge him and I've discussed the importance of having a primary car e doctor to follow up with. He is trying to set up care with a new PCP. Past Medical History Diagnosis Date Diabetes mellitus type II Atrial fibrillation Diabetes mellitus type I Stroke Past Surgical History Procedure Date Unlisted procedure arthroscopy No Known Allergies Prescriptions prior to admission Medication Sig Dispense Refill atenolol (TENORMIN) 100 MG tablet Take 100 mg by mouth 2 (two) times daily. ATENOLOL PO Take 100 mg by mouth. [...] Take 40 mg by mouth every morning. ziprasidone (GEODON) 40 MG capsule Take 40 mg by mouth 2 (two) times daily with meals. aspirin 81 MG EC tablet Take 1 tablet by mouth daily. 30 tablet 11 TAMSULOSIN HCL PO Take 0.4 mg by mouth. triamterene-hydrochlorothiazide (MAXZIDE) 75-50 MG per tablet Take 1 tablet by mouth da evelia. DISCHARGE EXAM Vital Signs: BP 142/85 | Pulse 76 | Temp(Src) 98.2 F (36.8 C) (Oral) | Resp 16 | Wt 99.3 kg (218 lb 14.7 oz) | SpO2 94% Patient Vitals for the past 24 hrs: BP Temp Temp src Pulse Resp SpO2 Weight 09/24/11 0804 142/85 mmHg 98.2 F (36.8 C) - 76 16 94 % - 09/24/11 0529 - - - 64 - - - 09/24/11 0307 130/60 mmHg - - 87 16 94 % - 09/24/11 0123 - - - 98 - 95 % - 09/24/11 0111 - - - 94 12 95 % - 09/23/11 2301 152/92 mmHg 97.9 F (36.6 C) Oral 75 18 97 % 99.3 kg (218 lb 14.7 oz) 09/23/11 2253 171/98 mmHg - - 81 20 95 % - 09/23/11 2140 163/93 mmHg - - 79 16 98 % - 09/23/112007 - - - - - - 110.678 kg (244 lb) 09/23/112005 130/74 mmHg - Oral 1 16 94 % - Physical Exam Vitals reviewed. Constitutional: He is oriented to person, place, and time. He appears well-developed and we ll-nourished. No distress. HENT: Head: Normocephalic and atraumatic. Mouth/Throat: Oropharynx is clear and moist. Eyes: Conjunctivae are normal. No scleral icterus. Neck: Normal range of motion. Neck supple. No JVD present. Cardiovascular: Normal rate, regular rhythm, normal heart sounds and intact distal pulses. No murmur heard. Pulmonary/Chest: Effort normal and breath sounds normal. No respiratory distress. Abdominal: Soft. Bowel sounds are normal. He exhibits no distension. There is no tenderness . Musculoskeletal: Normal range of motion. He exhibits [...] CBC: Lab Results Component Value Date WBC 11.3* 09/24/2011 RBC 4.61 09/24/2011 HGB 14.1 09/24/2011 HCT 41.0 09/24/2011 MCV 88.9 09/24/2011 MCH 30.6 09/24/2011 MCHC 34.4 09/24/2011 RDW 40.3 09/24/2011 PLT 254 09/24/2011 MPV 7.6 09/24/2011 DIFFTYPE AUTOMATED 09/24/2011 CMP: Lab Results Component Value Date NA 140 09/23/2011 K 3.2* 09/23/2011 CL 101 09/23/2011 CO2 25 09/23/2011 ANIONGAP 16 09/23/2011 GLUF 123* 09/23/2011 BUN 16 09/23/2011 CREATININE 1.40* 09/23/2011 BCR 12 09/23/2011 CA 10.1 09/23/2011 PROT 8.3* 09/23/2011 ALB 3.6 09/23/2011 GLOB 4.7 09/23/2011 BILITOT 0.4 09/23/2011 ALP 84 09/23/2011 AST 23 09/23/2011 ALT 36 09/23/2011 EGFR 56* 09/23/2011 PT/INR: Lab Results Component Value Date INR 0.9 09/23/2011 PTT: Lab Results Component Value Date APTT 28 09/23/2011 [APTT CPK: Lab Results Component Value Date CKTOTAL 58 09/24/2011 CKMB: Lab Results Component Value Date CKMB 0.6 09/24/2011 Troponin I: Lab Results Component Value Date TROPONINI <0.02 09/24/2011 XR CHEST 2 VIEW FRONTAL AND LATERAL 09/23/2011 8:21 PM HISTORY: Chest pain. TECHNIQUE: Two views of the chest. FINDINGS: Compared with May 06, 2011. The heart is normal in size. No acute infiltrates or eviden ce of edema. No pneumothorax or pleural effusion. There is mild thoracic spondylosis. IMPRESSION: 1. No acute findings in the chest. Disposition: Home Condition: Stable Code Status: Full Code No discharge procedures on file. Follow up: No follow-up provider specified. Current Discharge Medication List CONTINUE these medications which have NOT CHANGED Details !! atenolol (TENORMIN) 100 MG tablet Take 100 mg by mouth 2 (two) times daily. !! ATENOLOL PO Take 100 mg by mouth. [...] Take 40 mg by mouth every morning. ziprasidone (GEODON) 40 MG capsule Take 40 mg by mouth 2 (two) times daily with meals. aspirin 81 MG EC tablet Take 1 tablet by mouth daily. Qty: 30 tablet, Refills: 11 TAMSULOSIN HCL PO Take 0.4 mg by mouth. triamterene-hydrochlorothiazide (MAXZIDE) 75-50 MG per tablet Take 1 tablet by mouth daily. !! - Potential duplicate medications found. Please discuss with provider. Discharge took 31+ minutes, to include final examination, discussion of admission, and prep aration of prescriptions, instructions for on-going care, follow-up and documentation of dis charge summary. Erasto Bautista DO 09/24/2011 11:44 AM documented in this enc ounter Progress Notes Conversion Transaction, Provider Unknown - 09/24/2011 12:00 PM PDTFormatting of this note m ight be different from the original. Progress Notes by Nadeen Echavarria RN at 09/24/11 1200 Author: Nadeen Echavarria RN Service: (none) Author Type: Registered Nurse Filed: 09/24/11 1204 Date of Service: 09/24/11 1200 Status: Signed Staff Editor: Nadeen Echavarria RN (Registered Nurse) Pt to vehicle via w/c per this RN with family member here to provide transportation home. P t stable and voicing no complaints. Voices understanding of discharge instructions. Personal belongings with pt. onver ivana Transaction, Provider Unknown - 09/24/2011 10:10 AM PDT Progress Notes by Nadeen Echavarria RN at 09/24/11 1010 Author: Nadeen Echavarria RN Service: (none) Author Type: Registered Nurse Filed: 09/24/11 1010 Date of Service: 09/24/11 1010 Status: Signed Staff Editor: Nadeen Echavarria RN (Registered Nurse) Dr Bautista says to leave iv out for now. onver ivana Transaction, Provider Unknown - 09/24/2011 9:58 AM PDT Progress Notes by Nadeen Echavarria RN at 09/24/11 0958 Author: Nadeen Echavarria RN Service: (none) Author Type: Registered Nurse Filed: 09/24/11 0958 Date of Service: 09/24/11 0958 Status: Signed Staff Editor: Nadeen Echavarria RN (Registered Nurse) Dr Bautista rounding. onver ivana Transaction, Provider Unknown - 09/24/2011 6:54 AM PDT Partial Note by Ida Akins at 09/24/11 0654 Author: Ida Akins Service: Cardiology Author Type: asset management lead Filed: 09/24/11 0655 Date of Service: 09/24/11 0654 Status: Signed Staff Editor: Ida Akins (asset management lead) EKG completed at 01:05. Could not complete order in Epic. onver ivana Transaction, Provider Unknown - 09/24/2011 3:48 AM PDT Progress Notes by Pepe Xie RPH at 09/24/11347 Author: Pepe Xie RPH Service: (none) Author Type: Pharmacist Filed: 09/24/11347 Date of Service: 09/24/11347 Status: Signed Staff Editor: Pepe Xie RPH (Pharmacist) Note scr 1.4 ccl unavailable Pharmacy will review meds when possible rdc 0347 docume nted in this encounter H&P Notes Oleg Box MD - 09/24/2011 12:59 AM PDT H&P by Oleg Box MD at 09/24/1158 Author: Oleg Box MD Service: Hospitalist Author Type: Physician Filed: 09/24/11105 Date of Service: 09/24/1158 Status: Signed Staff Editor: Oleg Box MD (Physician) [facility] Service: Hospitalist Admission History & Physical Pt: Norah Gr AGE/SEX: 55 y.o. male ROOM: [address] [place] [address] PCP: EDIN GUTIÉRREZ DO, : 1955 TODAY'S DATE: 09/24/2011 Date of Admission: 09/23/2011 Chief Complaint: Chest pain History of Present Illness: The patient is a 55 y.o. male with significant past medical history of DM2, HTN, Normal st ress test in 03/20 who presents with CP woke up from the sleep with CP at 700 in the evening . He said he had been having thi juliana all day and was pressure like non radiating. 3/10 npo aggravating or relieving factor. Last for coupl eof minutes than went away. He Had no SOB, N/V, Diarrhea, Abdominal pain or RUBIN. No constipation or change in bowel habi ts. No orthopnea or PND. Appetite is good without abdominal bloating. No cough or fever. No dizziness, lightheadedness or any symptoms suggestive of stroke. PMHx: Past Medical History Diagnosis Date Diabetes mellitus type II Atrial fibrillation Diabetes mellitus type I Stroke PSHx: Past Surgical History Procedure Date Unlisted procedure arthroscopy Prior To admission Meds: Prior to Admission medications Medication Sig Start Date End Date Taking? Authorizing Provider atenolol (TENORMIN) 100 MG tablet Take 100 mg by mouth 2 (two) times daily. Yes Histori amadou Provider ATENOLOL PO Take 100 mg by [...] mouth daily. 03/30/11 03/29/12 Nemesio Morley MD TAMSULOSIN HCL PO Take 0.4 mg by mouth. Historical Provider triamterene-hydrochlorothiazide (MAXZIDE) 75-50 MG per tablet Take 1 tablet by mouth daily. Historical Provider Medications scheduled: atenolol 100 mg Oral BID cyanocobalamin 100 mcg Oral Daily diltiazem 120 mg Oral Daily fenofibrate 160 mg Oral Daily glipiZIDE 5 mg Oral BID AC heparin (porcine) 5,000 Units Subcutaneous Q8H metformin 1,000 mg Oral Daily with breakfast niacin 500 mg Oral BID paroxetine 40 mg Oral QAM sodium chloride 10 mL Intravenous Q8H sodium chloride 10 mL Intravenous Q8H ziprasidone 40 mg Oral BID WC DISCONTD: aspirin 324 mg Oral Once - Now Allergies: No Known Allergies Immunization: Influenza: Up-to-date Pneumoccocal: Up-to-date; approximate date: [place] of years ago Family Hx: Family History Problem Relation Age of Onset Heart disease Father Heart disease Sister Diabetes type II Sister Social Hx: History Substance Use Topics Smoking status: Never Smoker Smokeless tobacco: Not on file Alcohol Use: Yes occasional Review of Symptoms: Constitutional: Negative for fever, [...] tightness, shortness of breath and wheezing. Cardiovascular: positive for chest pain, -ve palpitations and leg swelling. Gastrointestinal: Negative for nausea, vomiting, abdominal pain, diarrhea, constipation, bl ood in stool, abdominal distention, anal bleeding and rectal pain. Genitourinary: Negative for dysuria, frequency, hematuria, flank pain, difficulty urinating and dyspareunia. Musculoskeletal: Negative for back pain, joint swelling, arthralgias and gait problem. _ Skin: Negative for color change, pallor, rash and wound. Neurological: Negative for dizziness, tremors, seizures, syncope, weakness, light-headednes s, numbness and headaches. Hematological: Negative for adenopathy. Does not bruise/bleed easily. Psychiatric/Behavioral: Negative for suicidal ideas, hallucinations, behavioral problems, c onfusion and agitation. Objective: Vital Signs: BP 152/92 | Pulse 75 | Temp(Src) 97.9 F (36.6 C) (Oral) | Resp 18 | Wt 99.3 kg (218 lb 14.7 oz) | SpO2 97% Physical Exam: Constitutional: Oriented [...] Behavior is normal. Judgment normal. Data: Lab 09/23/112011 WBC 13.0* HGB 15.5 HCT 45.5 PLT 291 NEUTOPHILPCT 51.4 MONOPCT 10.6 Lab 09/23/112011 NA 140 K 3.2* CL 101 CO2 25 BUN 16 CREATININE 1.40* CALCIUM -- PROT 8.3* BILITOT 0.4 ALKPHOS -- ALT 36 AST 23 GLUCOSE -- Lab 09/23/112011 APTT 28 INR 0.9 PTT -- Lab 09/23/112011 CKTOTAL 91 TROPONINI -- TROPONINT -- CKMBINDEX 1.4 EKG: NSR at [address] elevation or depression Chest X-Ray: CXR Reviewed no infiltrates Problem List: Active Problems: Diabetes mellitus type II Atrial fibrillation Chest pain HTN (hypertension) Assessment and Plan: The patient is a 55 y.o. male with significant past medical history of DM2, HTN, Normal st ress test in 03/20 who presents with CP Chest Pain: Will r/o ACS by sending two sends of cardiac enzyme. EKG PRN for CP He had recent normal Nuclear Stress test. If keeps on having CP may need cardiology to do cath - Benign HTN: Continue home BP meds(Atenolol) Salt restriction to less than 2 g/day Will adjust BP meds according to BP readings - DM Type 2: Will continue on OHA(Metformen, Glipizide) with Insulin sliding scale Will follow finger stick and adjust insuline accordingly WARD: On CPAP A-fib: In NSR CKD: Stage 3 stable Patient's old records and labs were reviewed in detail and summarized. Code Status: Full Code Primary Care Physician: EDIN GUTIÉRREZ DO, DO OLEG BOX MD, FACP 09/24/2011 12:59 AM documented [facility] ED Notes Antonella Kendrick - 09/23/2011 9:48 PM PDTFormatting of this note might be different fro m the original. ED Provider Notes by Antonella Kendrick PA-C at 09/23/112147 Author: Antonella Kendrick PA-C Service: (none) Author Type: Physician Production Specialist - Cer tified Filed: 09/23/112227 Date of Service: 09/23/112147 Status: Signed Staff Editor: Antonella Kendrick PA-C (Physician Production Specialist - Certified) Related Notes: Cosigned by Kristian Mae MD (Physician) filed at 09/24/11 1648 Procedures [facility] Department of Emergency Medicine History of Present Illness Patient Identification Norah Gr is a 55 y.o. male. Patient information was obtained from patient. History/Exam limitations: none. Patient presented to the Emergency Department by: [facility] A411 Chief Complaint Chief Complaint Patient presents with Chest Pain Patient reports intermittent chest pain intermittently for the past couple of weeks, but to day was more prolonged. The pain was located substernally and described as a tightness, no radiating and not associated with shortness of breath, nausea or diaphoresis. Non-smoker, n on-drinker, history of atrial fibrillation and DM but no CAD. Father at the age of 59 of an SC. He received one aspirin and NL spray by EMS en route here and has been pain free since his arrival. Past Medical History Diagnosis Date Diabetes mellitus type II Atrial fibrillation Diabetes mellitus type I Stroke Past Surgical History Procedure Date Unlisted procedure arthroscopy Prior to Admission medications Medication Sig Start Date End Date Taking? Authorizing Provider aspirin 81 MG EC tablet Take 1 tablet by mouth daily. 03/30/11 03/29/12 Nemesio Morley MD ATENOLOL PO Take 100 mg by mouth. Historical Provider diltiazem (DILACOR XR) 120 MG [...] (two) times daily with meals. Historical Provider No Known Allergies History Social History Marital Status: Single Spouse Name: N/A Number of Children: N/A Years of Education: N/A Occupational History Not on file. Social History Main Topics Smoking status: Never Smoker Smokeless tobacco: Not on file Alcohol Use: Yes occasional Drug Use: No Sexually Active: Other Topics Concern Not on file Social History Narrative No narrative on file No family history on file. Review of Systems Constitutional: Negative for fever and chills. Respiratory: Positive for cough. Negative for shortness of breath and wheezing. Cardiovascular: Positive for chest pain. Negative for palpitations. Gastrointestinal: Negative for nausea, vomiting, abdominal pain, diarrhea and constipation. Genitourinary: Negative for dysuria. Musculoskeletal: Negative for back pain. Skin: Negative for rash. Neurological: Negative for dizziness and headaches. Endo/Heme/Allergies: Does not bruise/bleed easily. All other systems reviewed and are negative. Physical Exam BP 163/93 | Pulse 79 | Resp 16 | Wt 110.678 kg (244 lb) | SpO2 98% Pulse Oximetry interpretation: Normal General: Alert, in no apparent distress with normal vitals as above except for slight eleva tion in blood pressure Eyes: Normal inspection, pupils equal and round Neck: Normal inspection Supple Cardiovascular: Rate and rhythm normal No murmurs Respiratory: Breath sounds normal bilaterally. Respirations are non-labored Abdomen: Soft, non-tender, non-distended No guarding or rebound. Bowel sounds present. Genitourinary: Deferred Rectal exam: Deferred Back: Normal inspection Skin: Color normal Warm and dry No rash Neuro: No motor deficit No sensory deficit No apparent neurological deficits. Medical Decision Making [...] troponin. Patient will be placed on the wardrobe image consultant to ensure no life thre atening arrhythmia develops and will be given supplemental oxygen via nasal cannula. ED Department Course Patient has remained pain free since his arrival here. Although labs, CXR and EKG are unre markable, feel that the patient should be admitted for chest pain r/o based on his multiple risk factors. It appears he was admitted here with similar complaints in March, and had a stress test done at that time which was normal - no cath [address] Box, agrees to admission to CDU, requests transition orders be writt en Records Reviewed Old medical records. Previous radiology studies. Laboratory Evaluation Results Procedure Component Value Ref Range Date/Time Cardiac Panel [[id number]] (Abnormal) Collected:09/23/112011 Order Status:Completed Updated:09/23/112044 WBC 13.0 (H) 3.8 - 11.0 K/uL RBC 5.09 4.20 - 5.70 M/uL HGB 15.5 13.2 - 17.0 g/dL HCT 45.5 39.0 - 50.0 % MCV 89.4 80.0 - 100.0 fl MCH 30.5 27.0 - 34.0 pg MCHC 34.1 32.0 - 35.5 g/dL RDW SD 39.8 37 - 53 fl PLT 291 150 - 400 K/uL MPV 7.6 fl DIFF TYPE AUTOMATED NEUTROPHILS 51.4 40 - 80 % LYMPHOCYTES 32.0 15 - 45 % MONOCYTES 10.6 0 - 12 % EOSINOPHILS 5.5 0 - 7 % BASOPHILS 0.5 0 - 2 % NEUTROPHILS ABS 6.7 2.0 - 7.3 K/uL LYMPHOCYTES ABS 4.2 (H) 1.0 - 3.4 K/uL MONOCYTES ABS 1.4 (H) 0 - 0.8 K/uL EOSINOPHILS ABS 0.7 (H) 0 - 0.5 K/uL BASOPHILS ABS 0.1 0 - 0.1 K/uL SODIUM 140 135 - 143 mmol/L POTASSIUM 3.2 (L) 3.5 - 4.9 mmol/L CHLORIDE 101 99 - 109 mmol/L CO2 25 23 - 32 mmol/L ANION GAP AGAP 16 5 - 20 mmol/L GLUCOSE 123 (H) 65 - 99 mg/dL BUN 16 8 - 25 mg/dL CREATININE 1.40 (H) 0.70 - 1.30 mg/dL BUN/CREAT 12 CALCIUM 10.1 8.5 - 10.2 mg/dL TOTAL PROTEIN 8.3 (H) 6.3 - 8.2 g/dL Albumin 3.6 3.6 - 5.0 g/dL GLOBULIN 4.7 1.3 - 4.9 g/dL A/G 0.8 (L) 1.0 - 2.4 TBIL 0.4 0.1 - 1.5 mg/dL ALK PHOS 84 35 - 115 U/L AST 23 10 - 45 U/L ALT 36 10 - 65 U/L EGFR 56 (L) >60 mL/min/1.73m2 CPK 91 55 - 400 U/L INR 0.9 0.9 - 3.5 APTT 28 23 - 32 seconds MMB 1.3 0.5 - 3.6 ng/mL CK-MB Index 1.4 POC cardiac troponin [[id number]] Collected:09/23/112016 Order Status:Completed Updated:09/23/112031 POC CARDIAC TROPONIN 0.01 0.00 - 0.10 ng/mL Radiology and EKG Evaluation Imaging Results XR Chest AP and Lateral (Final result) Result time:09/23/112120 Final result by Rad Results In Richard (09/23/11 ) Narrative: [facility] XR CHEST 2 VIEW FRONTAL AND LATERAL 09/23/2011 8:21 PM HISTORY: Chest pain. TECHNIQUE: Two views of the chest. FINDINGS: Compared with May 06, 2011. The heart is normal in size. No acute infiltrates or eviden ce of edema. No pneumothorax or pleural effusion. There is mild thoracic spondylosis. IMPRESSION: 1. No acute findings in the chest. Interpretation Rhythm: Sinus Ventricular Rate: 90 NH Interval: Normal ST Segments: Prolonged QT. No ST elevation or depression Significant Q-waves: None Blocks: None ED Diagnosis Final diagnosis Chest pain Disposition: ED Disposition Admit/Observation Bed request special needs: None Diagnosis?: Chest pain Antonella Kendrick PA-C 09/23/112227 Kristian Mae MD 09/24/111647 ristian Mae MD - 09/23/2011 9:48 PM PDTFormatting of this note might be different from the origi nal. ED Provider Notes by Kristian Mae MD at 09/23/112147 Author: Kristian Mae MD Service: (none) Author Type: Physician Filed: 09/24/111647 Date of Service: 09/23/112147 Status: Signed Staff Editor: Kristian Mae MD (Physician) Related Notes: Related Note by Antonella Kendrick PA-C (Physician Production Specialist - Certified) filed at 09/23/112227 I have discussed the patient with the midlevel provider and we have discussed and agreed on the patient's treatment. I have read and agree with the mid-level provider's documentation. Kristian Mae MD 09/24/111647 onversion Merchant saction, Provider Unknown - 09/23/2011 8:10 PM PDTFormatting of this note might be differen t from the original. ED Notes by Suresh Marin RN at 09/23/112009 Author: Suresh Marin RN Service: (none) Author Type: Registered Nurse Filed: 09/23/112011 Date of Service: 09/23/112009 Status: Signed Staff Editor: Suresh Marin RN (Registered Nurse) Pt Here with c/c substernal cp prior to arrival. On arrival now pt is awake alert with no report of cp. Monitor SR no obvious ectopy. Suresh Marin RN 09/23/112011 docume nted in this encounter Plan of Treatment +--------+ + + + + | Date | Type | Specialty | Care Team | Description | +--------+ + + + + | 10/16/ | Anti-coag | Anticoagulation | Brittany Zaragoza | | | 2019 | visit | | [address] | | | | | | [place], | | | | | | [place] [address] | | | | | | [phone] | | | | | | | | +--------+ + + + + documented as of this encounter Procedures + +--------+ + + + | Procedure Name | Priori | Date/Time | Associated Diagnosis | Comments | | | ty | | | | + +--------+ + + + | XR CHEST 2 VIEWS | Routin | 09/23/2011 | | Results for this | | | e | 8:27 PM | | procedure are in the | | | | PDT | | results section. | + +--------+ + + + documented in this encounter Results XR Chest 2 Vws (09/23/2011 8:27 PM PDT) + + | Specimen | + + | | + + + + + | Narrative | Performed At | + + + | [facility] XR CHEST 2 VIEW FRONTAL AND LATERAL 09/23/2011 8:21 | | | PM HISTORY: Chest pain. TECHNIQUE: Two views of the chest. | | | FINDINGS: Compared with May 06, 2011. The heart is normal in | | | size. No acute infiltrates or evidence of edema. No pneumothorax | | | or pleural effusion. There is mild thoracic spondylosis. | | | IMPRESSION: 1. No acute findings in the chest. Electronically | | | signed by Joe De Dios MD on 09/23/2011 9:21 PM | | + + + + + | Procedure Note | + + | Richard, Rad Conversion - 09/29/2018 12:47 AM PDT [facility] CHEST 2 VIEW FRONTAL | | AND LATERAL09/23/2011 8:21 PM HISTORY:Chest pain. TECHNIQUE:Two views of the chest. | | FINDINGS:Compared with May 06, 2011. The heart is normal in size. No acute | | infiltrates or evidence of edema. No pneumothorax or pleural effusion. There is mild | | thoracic spondylosis. IMPRESSION:1. No acute findings in the chest. Electronically | | signed by Joe De Dios MD on 09/23/2011 9:21 PM | | | |TECHNIQUE: | |Two views of the chest. | | | |FINDINGS: | |Compared with May 06, 2011. The heart is normal in size. No acute infiltrates or eviden ce of edema. No pneumothorax or pleural effusion. There is mild thoracic spondylosis. | | | |IMPRESSION: | |1. No acute findings in the chest. | | | | | + + documented in this encounter Visit Diagnoses + + | Diagnosis | + + | Chest pain Chest pain, unspecified | + + | Diabetes mellitus type II Type II or unspecified type diabetes mellitus without | | mention of complication, not stated as uncontrolled | + + | HTN (hypertension) Unspecified essential hypertension | + + | Atrial fibrillation (HCC) Atrial fibrillation | + + | Other chest pain | + + documented in this encounter"
--- OUTSIDE RECORDS SUMMARY | ~2019-10-12 | XMS | Encounter Summary ---
Demographics + + + | Address | [address] | | | [place] [address] | + + + | Home Phone [...] + | Sammi Kohler | ECON | [place] [address] | | + + + + + Care Team Providers + +------+ + | Care Public Health Registrar Name | Role | Phone | + +------+ + PCP | Unavailable | + +------+ + Encounter Details +--------+ + + + + | Date | Type | Department | Care Team | Description | +--------+ + + + + | 06/25/ | Emergency | [facility] | Jose Wagner | Light headedness; | | 2017 | | [facility] | DO [address] | Generalized | | | | EMERGENCY CENTER | [address] | weakness; | | | | [address] | [place], [place] | Hyperglycemia; | | | | [place], [place] | [address] | Chronic kidney | | | | [address] | [phone] | disease, unspecified | | | | [phone] | | stage; Elevated | | | [...] ED Notes by Samia Roque RN at 06/25/161709 Author: Samia Roque RN Service: (none) Author Type: Registered Nurse Filed: 06/25/161709 Date of Service: 06/25/161709 Status: Signed Medical Coding Auditor: Samia Roque RN (Registered Nurse) Discharge instructions given Samia Roque RN 06/25/161709 oung, Jose Townsend DO - 06/25/2016 2:54 PM PDT ED Provider Notes by Jose Wagner DO at 06/25/16 3021 Author: Jose Wagner DO Service: Emergency Department Author Type: Physician Filed: 06/26/162006 Date of Service: 06/25/161453 Status: Signed Medical Coding Auditor: Jose Wagner DO (Physician) [facility] Department of Emergency Medicine 2:54 PM History [...] Depression Renal failure ARF (acute renal failure) ([facility]) 03/02/2013 COPD (chronic obstructive pulmonary disease) ([facility]) [...] SECTION; Surgeon: Sy Fierro MD; Location: [facility] MAIN OR; Service: Plastics; Laterality: Left; forearm Hernia repair N/A 07/03/2013 Procedure: LAPAROSCOPIC - HERNIA - INCISIONAL; Surgeon: Jevon Vargas DO; Location: [facility] MA[facility] OR; Service: General; Laterality: N/A; Colonoscopy N/A 03/04/2013 Procedure: COLONOSCOPY; Surgeon: Howie Gibson MD; Location: [facility] ENDOSCOPY; Service: Gastroe nterology; Laterality: N/A; Esophagogastroduodenoscopy N/A 03/03/2013 Procedure: ESOPHAGOGASTRODUODENOSCOPY; Surgeon: Howie Gibson MD; Location: [facility] ENDOSCOPY; S ervice: Gastroenterology; Laterality: N/A; Skin cancer excision Left 10/10/2012 Procedure: EXCISION - SKIN CANCER; Surgeon: Sy Fierro MD; Location: [facility] OR ; Service: Plastics; [...] lungs as needed. 108 mcg/act Historical Provider Uwtrw-P-Mqihhvrcpmarc (BEANO) TABS Take 150 Units by mouth [...] 100 mg by mouth nightly. Historical Provider uprmqsxnf-pisjwjsi-cijtjxkyy hydroxide-simethicone Take 40 mLs by mouth daily [...] sore throat CV/Resp: Negative for chest pain, dahknariu-bq-hvfqyc, cough GI: Negative for abdominal pain, nausea, [...] all the time, recently admitted for stroke, ramila livingston has no stroke symptoms here, ct and [...] Procedure Component Value Ref Range Date/Time TSH [[id number]] Collected: 06/25/161507 Order Status: Completed Specimen Information: Blood Updated: 06/25/161957 TSH 3.60 0.45 - 5.10 uIU/mL Cardiac Panel [[id number]] (Abnormal) Collected: 06/25/161507 Order Status: Completed Updated: 06/25/16 1539 WBC 9.00 3.80 - 11.00 K/uL [...] 2.4 Urinalysis (reflex to microscopic/reflex to culture) [[id number]] (Abnormal) Collected: 06/25/16 0376 Order Status: Completed Specimen Information: Urine, Clean Catch Updated: 06/25/16 15 38 COLOR UA YELLOW CLARITY CLEAR Specific [place], UA 1.016 1.002 - 1.030 LEUKOCYTE ESTERASE [...] Time: 1505 Rate: 59 Rhythm: sinus bradycardia Munith: normal Intervals: normal ST: normal Compared to [...] needed [address] [facility] [address] [facility] Emergency Department If symptoms worsen [address] [facility] [address] Discharge Medications: Discharge Medication List as of [...] | | | | | | [place] [address] | | | | | | [phone] | | | | | | | [...] Rad Conversion - 09/19/2018 4:20 PM PDT NROAH GRCT HEAD WO | | CONTRAST06/25/2016 3:28 [...] Conversion - 09/19/2018 4:20 PM PDT NORAH GR89 years MaleXR | | CHEST 2 VIEW [...] - 1.030 | EXTERNAL | | | [place], | | | LAB | | | [...] | | | Cells | performed at [facility] | | LAB | | | | Breanna Jenkins;[place], [place] | | | | | | [address] | | | | + + + [...] | | | | | [place] [address] | | | | + + + [...] | | | | | ONLY, -COMPUTER (485), | | | | | | movie editor [place] | | | | [...]
--- OUTSIDE RECORDS SUMMARY | ~2019-10-12 | XMS | Encounter Summary ---
Demographics + + + | Address | [address] | | | [place] [address] | + + + | Home Phone [...] | + + + + + | Samim Kohler | ECON | [place] [address] | | + + + + + Care Team Providers + +------+ + | Care Coordinator [employer] Name | Role | Phone | + +------+ + | Mireya Pack NP | PCP | | + +------+ + Reason for Visit + +--------+ + | Reason | Onset | Comments | | | Date | | + +--------+ + | Home Health | 08/05/ | | | | 2020 | | + +--------+ + Encounter Details +--------+ + + + + | Date | Type | Department | Care Team | Description | +--------+ + + + + | 08/05/ | Telephone | [facility] | Mireya Pack, | Home Health | | 2020 | | [facility] [address] | [address] RANDER [address] | | | | | [address] | [address] [place], | | | | | [place], [place] | [place] [address] | | | | | [address] | [phone] | | | | | [phone] | | | +--------+ + + + [...] Telephone Encounter - Lucia Amos RN - 08/06/2019 2:59 PM PDTCall placed to [facility], no answer, left VM with clinic phone number. VM to relay PCP's message, encouraged to call if she has questions/clarifications. elephone Encounter - Mireya Pack NP - 08/06/2019 2:56 PM PDTP lease return call to nursing and request that they submit report to [facility] and I will submit a report with my clinical observations in addition elephone Encounter - Lucia Amos RN - 08/06/2019 1: 07 PM PDTSpoke with RN Destiny, patient got mad at nurse when HH told him/reminded him to take his meds; patient refuses to take his meds. He was seen in ED this morning because o f low blood sugar - this is what he told nurse. Per patient's file, he was seen for insom madhu, atrial fibrillation, hyperglycemia and essential hypertension. said that patient is noncompliant. found him with three bags of chips open, he was ea ting on the floor. reminded him of what he should be eating and patient got mad and told HH that he can eat whatever he wants. also said that patient refuses to go to [facility]. He will not leave his house/apt. Routed to PCP as FYT[place]. elephone Encounter - Heidi Moody - 08/06/2019 12:31 PM [facility]. He went to ER today and he is not taking his medicati on. He is being non compliant Please call her at [phone] ,Heidi Moody documented in this enco unter Plan of Treatment +--------+ + + + + | Date | Type | Specialty | Care Team | Description | +--------+ + + + + | 10/16/ | Anti-coag | Anticoagulation | Brittany Zaragoza | | | 2020 | visit | | [address] | | | | | | [place], | | | | | | [place] [address] | | | | | | [phone] | | | | | | | | +--------+ + + + + documented as of this encounter Visit Diagnoses Not on filedocumented in this encounter"
--- OUTSIDE RECORDS SUMMARY | ~2019-10-12 | XMS | Encounter Summary ---
Demographics + + + | Address | [address] | | | [place] [address] | + + + | Home Phone [...] + | Sammi Kohler | ECON | [place] [address] | | + + + + + Care Team Providers + +------+ + | Care Photovoltaic Installation Technician Name | Role | Phone | + +------+ + PCP | Unavailable | + +------+ + Encounter Details +--------+ + + + + | Date | Type | Department | Care Team | Description | +--------+ + + + + | 12/01/ | Emergency | [facility] | Yaakov Bridges DO | HTN (hypertension); | | 2013 | | MEDICAL CENTER | [address] | DM (diabetes | | | | EMERGENCY CENTER | [address], | mellitus), type 2, | | | | [address] | [place] [address] | uncontrolled (HCC) | | | | [place], [place] | [phone] | | | | | [address] | | | | | | [phone] | | | +--------+ + + + [...] Author: QUINN Tyson Service: (none) Author Type: Probation And Patrol Agent Filed: 12/01/131934 Date of Service: 12/01/131929 Status: Signed Oncology Rn: QUINN Tyson (Probation And Patrol Agent) COLTON alert rec'd for this patient, 35 [...] the ED Care Guidelines Committee of the [facility] Consistent Care Program on May 21, 2013. No controlled substances should be administered in the ED or prescribed from the ED for sub jective pain. Past Medical & Surgical History: Primary Care Provider (PCP) is Dr. Gutiérrez at . Notify PCP if giving any a dditional narcotics for objective findings. PCP supports enrollment in the [facility] nt Care Program. Medical History: 1. Diabetes-He is on a sliding scale after meals, routine insulin before meals and takes La ntus at night. A1C April, = 7.9%. He was referred to an centrifugal screen tender in February, 4. 2. COPD- He take [...] cm nodule at the GE junction (requiring manage ent in [place] at ), rectal ulcer and internal hemorrhoids. 9. Hernia- He has been referred to Dr. Vargas. Problem List: He needs to make regular visits to see his PCP in light of his chronic conditions. He estab lished in February, but he never returned as requested. This patient is developmentally delayed and has multiple chronic conditions and providers. He would benefit from having a Mines Inspector assist him in coordinating his care. History of Behavioral Health Conditions: He has depression and anxiety- This is managed by his PCP. He takes Paxil and abilify. [facility]. According to [facility], he never establish ed care. Please follow-up with him and assist him in making another appointment to establish care. Pain/Opioid Agreement: Kevyn has an order at the [facility] for hydrocodone as needed. He does not h ave a diagnosis of chronic pain. Please see FACTORY REPRESENTATIVE for prescribing history. Social History or Identified Risk: - Fall Risk - Non adherence - Transportation Issues Social History: Kevyn lives at [facility] . He may require another level of care given the number of ED visits at enrollment (22 in the last year)-please contact his [facility] Ca se Job Compositor (Fermin Preston) to discuss. Kevyn is developmentally delayed- Patient may benefit from having someone with him at his d octor's appointments. He has applied for Dial-A-Ride services (April,) Applied for a Health Home for this client through [facility]- please review Provider One to determ ine if one has been assigned. Additional Information: This patient is case managed by the [place] Consistent Care Program. Please contact the internal medicine nurse practitioner at your hospital for any immediate or [...] Notes by Naz Yuan RN at 12/01/13 3826 Author: Naz Yuan RN Service: (none) Author Type: Registered Nurse Filed: 12/01/13 1640 Date of Service: 12/01/138 Status: Signed Oncology Rn: Naz Yuan RN (Registered Nurse) Spoke with pts ride back to [facility] who states he is on his way, pt requesting to wait for ride in waiting room, provided paper pants due to incontinence earlier, pt declines paper sh irt requesting to wear gown back to [facility]. Dc teaching provided, emphasized to follow up a s directed or return for concerns, copy of dc instructions sent with pt back to [facility]. Naz Yuan RN 12/01/13 1640 onver ivana Transaction, Provider Unknown - 12/01/2013 4:17 PM PDT ED Notes by Naz Yuan RN at 12/01/13 1617 Author: Naz Yuan RN Service: (none) Author Type: Registered Nurse Filed: 12/01/13 1618 Date of Service: 12/01/13 1617 Status: Signed Oncology Rn: Naz Yuan RN (Registered Nurse) Pt states he called his friend from [facility] to come pick him up Naz Yuan RN 12/01/13 1618 onver ivana Transaction, Provider Unknown - 12/01/2013 1:25 PM PDT ED Notes by Naz Yuan RN at 12/01/13 1325 Author: Naz Yuan RN Service: (none) Author Type: Registered Nurse Filed: 12/01/13 1325 Date of Service: 12/01/131324 Status: Signed Oncology Rn: Naz Yuan RN (Registered Nurse) Entered room [...] Emergency Department Author Type: Physician Filed: 12/11/13 1727 Date of Service: 12/01/131243 Status: Signed Oncology Rn: Yaakov Bridges DO (Physician) [facility] Department of Emergency Medicine 12:46 PM 12/01/2013 History of Present Illness Patient Identification Kevyn Guzman is a 57 y.o. male. Patient information was obtained from patient. History/Exam limitations: none. Patient presented to the Emergency Department by: [facility] 1723 Primary care physician: EDIN GUTIÉRREZ Chief [...] into the skin nightly. H istorical Provider rmxbbkcev-fvjvkakv-aivtwfxpd hydroxide-simethicone Take 40 mLs by mouth daily [...] RN, patient is reported by staff at [facility] ([facility]) to have b een crying uncontrollably all [...] Component Value Ref Range Date/Time POCT glucose [[id number]] Order Status: Sent Urine Microscopic [[id number]] Collected: 12/01/13 1330 Order Status: Completed Updated: 12/01/13 135 Specimen Information: Urine / Urine, Clean Catch WBC 1-5 0 - 5 /hpf RBC 0-2 0 - 2 /hpf EPITHELIAL 1-5 /lpf BACTERIA NONE SEEN NONE SEEN Complete Metabolic Panel [[id number]] (Abnormal) Collected: 12/01/13 130 Order Status: Completed Updated: 12/01/131335 Specimen Information: [...] EGFR >60 >60 mL/min/1.73m2 POC clinitek 10 [[id number]] (Abnormal) Collected: 12/01/131334 Order Status: Completed Updated: [...] NEGATIVE WBC, UA NEGATIVE NEGATIVE Ketones, Serum [[id number]] Collected: 12/01/13 130 Order Status: Completed Updated: 12/01/131333 Specimen Information: Blood KETONES,SERUM NEGATIVE NEGATIVE CBC w Auto Diff [[id number]] (Abnormal) Collected: 12/01/13 1304 Order Status: Completed [...] day For continued evaluation and treatment [address] [facility] [address] [facility] Emergency Department If symptoms worsen [address] [facility] [address] Discharge Medications: Discharge Medication List as of 12/01/2013 4:18 PM This document has been prepared with a voice recognition system. The possibility of "sound alike" national park ranger errors, addition and/or deletions may occur. If there is any question p lease contact the author of the document. Procedures Additional Documentation Procedures Attending Note: Documentation assistance provided by Amber Wiggins (Scribchad). Informat ion recorded by the lo has been reviewed and validated by me. I agree with its contents . DO Yaakov Emanuel DO 12/11/131726 onversion Transactlenin sanchez, Provider Unknown - 12/01/2013 12:27 PM PDT ED Notes by Michelle Palomares RN at 12/01/131226 Author: Michelle Palomares RN Service: (none) Author Type: Registered Nurse Filed: 12/01/131226 Date of Service: 12/01/131226 Status: Signed Oncology Rn: Michelle Palomares RN (Registered Nurse) Bed: 16 [...] | | | | | | [place] [address] | | | | | | [phone] | | | | | | | [...] | LAB | | | | [address];[place], [place] | | | | | | [address] | | | | + + + [...] [place] | | | | | | [address] | | | | + + + + + + | RBC, UA | 0-2Comment: Testing | 0 - 2 /hpf | EXTERNAL | | | | performed at [facility];[address] | | LAB | | | [address];[place] | | | | | | [address] | | | | + + + + + + | Epithelial | 1-5Comment: Testing | /lpf | EXTERNAL | | | Cells | performed at [facility];[address] | | LAB | | | | [address];[place] | | | | | | [address] | | | | + + + + + + | Bacteria, | NONE SEENComment: | | EXTERNAL | | | UA | Testing performed at | | LAB | | | | [facility];[address] | [address];[place] [address] | | | | + + + [...] DIDI | | | Testing performed at [facility], [address] [facility] [place] | | | [address] | | + + + + +---------+ [...] performed at [facility];[address] | | LAB | | | | [address];[place], [place] | | | | | | [address] | | | | + + + [...] [place] | | | | | | [address] | | | | + + + + + + | Non- | 4.79Comment: Testing | 4.20 - 5.70 | EXTERNAL | | | Red Blood | performed at [facility];[address] | M/uL | LAB | | | Cells | [address];[place] | | | | | Counted | [address] | | | | + + + + + + | Hemoglobin | 12.5 (L)Comment: Testing | 13.2 - 17.0 | EXTERNAL | | | | performed at [facility];[address] | g/dL | LAB | | | | [address];[place] | | | | | | [address] | | | | + + + + + + | Hematocrit, | 38.5 (L)Comment: Testing | 39.0 - 50.0 % | EXTERNAL | | | POC | performed at [facility];[address] | | LAB | | | [address];[place] | | | | | | [address] | | | | + + + + + + | MCV | 80.2Comment: Testing | 80.0 - 100.0 fl | EXTERNAL | | | | performed at [facility];[address] | | LAB | | | | [address];[place] | | | | | | [address] | | | | + + + + + + | MCH | 26.1 (L)Comment: Testing | 27.0 - 34.0 pg | EXTERNAL | | | | performed at [facility];[address] | | LAB | | | | [address];[place] | | | | | | [address] | | | | + + + + + + | MCHC | 32.5Comment: Testing | 32.0 - 35.5 | EXTERNAL | | | | performed at [facility];[address] | g/dL | LAB | | | | [address];[place] | | | | | | [address] | | | | + + + + + + | RDW-CV | 41.6Comment: Testing | 37 - 53 fl | EXTERNAL | | | | performed at [facility];[address] | | LAB | | | | [address];[place] | | | | | | [address] | | | | + + + + + + | Platelet | 261Comment: Testing | 150 - 400 K/uL | EXTERNAL | | | Count | performed at [facility];[address] | | LAB | | | Plasma | [address];[place] | | | | | | [address] | | | | + + + + + + | MPV | 7.8Comment: Testing | fl | EXTERNAL | | | | performed at [facility];[address] | | LAB | | | | [address];[place] | | | | | | [address] | | | | + + + + + + | Differentia | AUTOMATEDComment: | | EXTERNAL | | | l Type | Testing performed at | | LAB | | | | [facility];[address] | [address];[place] [address] | | | | + + + + + + | % Segmented | 70.3Comment: Testing | % | EXTERNAL | | | | performed at [facility];[address] | | LAB | | | Neutrophils | [address];[place] | | | | | | [address] | | | | + + + + + + | % | 19.6Comment: Testing | % | EXTERNAL | | | Lymphocytes | performed at [facility];[address] | | LAB | | | | [address];[place] | | | | | | [address] | | | | + + + + + + | % Monocytes | 7.8Comment: Testing | % | EXTERNAL | | | | performed at [facility];[address] | | LAB | | | | [address];[place] | | | | | | [address] | | | | + + + + + + | % | 1.1Comment: Testing | % | EXTERNAL | | | Eosinophils | performed at [facility];[address] | | LAB | | | | [address];[place] | | | | | | [address] | | | | + + + + + + | % Basophils | 1.2Comment: Testing | % | EXTERNAL | | | | performed at [facility];[address] | | LAB | | | | [address];[place] | | | | | | [address] | | | | + + + + + + | Absolute | 8.0 (H)Comment: Testing | 1.9 - 7.4 K/uL | EXTERNAL | | | Segmented | performed at [facility];[address] | | LAB | | | Neutrophils | [address];[place] | | | | | | [address] | | | | + + + + + + | Absolute | 2.2Comment: Testing | 1.0 - 3.9 K/uL | EXTERNAL | | | Lymphocytes | performed at [facility];[address] | | LAB | | | | [address];[place] | | | | | | [address] | | | | + + + + + + | Absolute | 0.9 (H)Comment: Testing | 0 - 0.8 K/uL | EXTERNAL | | | Monocytes | performed at [facility];[address] | | LAB | | | | [address];[place] | | | | | | [address] | | | | + + + + + + | Absolute | 0.1Comment: Testing | 0 - 0.5 K/uL | EXTERNAL | | | Eosinophils | performed at [facility];[address] | | LAB | | | | [address];[place] | | | | | | [address] | | | | + + + + + + | Absolute | 0.1Comment: Testing | 0 - 0.1 K/uL | EXTERNAL | | | Basophils | performed at [facility];[address] | | LAB | | | | [address];[place] | | | | | | [address] | | | | + + + [...] | LAB | | | | [address];[place] | | | | | | [address] | | | | + + + + + + | K | 4.8Comment: SLT | 3.5 - 4.9 | EXTERNAL | | | | HEMOLYSISTesting | mmol/L | LAB | | | | performed at [facility];[address] | | | | | | [address];[place] | | | | | | [address] | | | | + + + + + + | Cl | 106Comment: Testing | 99 - 109 mmol/L | EXTERNAL | | | | performed at [facility];[address] | | LAB | | | | [address];[place] | | | | | | [address] | | | | + + + + + + | CO2 | 31Comment: Testing | 23 - 32 mmol/L | EXTERNAL | | | | performed at [facility];[address] | | LAB | | | | [address];[place] | | | | | | [address] | | | | + + + + + + | Anion Gap | 8Comment: Testing | 5 - 20 mmol/L | EXTERNAL | | | | performed at [facility];[address] | | LAB | | | | [address];[place] | | | | | | [address] | | | | + + + + + + | Glucose, | 338 (H)Comment: Testing | 65 - 99 mg/dL | EXTERNAL | | | Fasting | performed at [facility];[address] | | LAB | | | | [address];[place] | | | | | | [address] | | | | + + + + + + | BUN | 16Comment: Testing | 8 - 25 mg/dL | EXTERNAL | | | | performed at [facility];[address] | | LAB | | | | [address];[place] | | | | | | [address] | | | | + + + + + + | Creatinine | 1.13Comment: Testing | 0.70 - 1.30 | EXTERNAL | | | | performed at [facility];[address] | mg/dL | LAB | | | | [address];[place] | | | | | | [address] | | | | + + + + + + | BUN/Creatin | 14Comment: Testing | | EXTERNAL | | | ine Ratio | performed at [facility];[address] | | LAB | | | | [address];[place] | | | | | | [address] | | | | + + + + + + | Calcium | 8.7Comment: Testing | 8.5 - 10.2 | EXTERNAL | | | | performed at [facility];[address] | mg/dL | LAB | | | | [address];[place] | | | | | | [address] | | | | + + + + + + | Protein, | 7.1Comment: Testing | 6.3 - 8.2 g/dL | EXTERNAL | | | Total | performed at [facility];[address] | | LAB | | | | [address];[place] | | | | | | [address] | | | | + + + + + + | Albumin | 3.2 (L)Comment: Testing | 3.6 - 5.0 g/dL | EXTERNAL | | | | performed at [facility];[address] | | LAB | | | | [address];[place] | | | | | | [address] | | | | + + + + + + | Globulin | 3.9Comment: Testing | 1.3 - 4.9 g/dL | EXTERNAL | | | | performed at [facility];[address] | | LAB | | | | [address];[place] | | | | | | [address] | | | | + + + + + + | A/G Ratio | 0.8 (L)Comment: Testing | 1.0 - 2.4 | EXTERNAL | | | | performed at [facility];[address] | | LAB | | | | [address];[place] | | | | | | [address] | | | | + + + + + + | Bilirubin | 0.3Comment: Testing | 0.1 - 1.5 mg/dL | EXTERNAL | | | Total | performed at [facility];[address] | | LAB | | | | [address];[place] | | | | | | [address] | | | | + + + + + + | ALP, | 105Comment: Testing | 35 - 115 U/L | EXTERNAL | | | External | performed at [facility];[address] | | LAB | | | | [address];[place] | | | | | | [address] | | | | + + + + + + | AST | 40Comment: SLT | 10 - 45 U/L | EXTERNAL | | | | HEMOLYSISTesting | | LAB | | | | performed at [facility];[address] | | | | | | [address];[place] | | | | | | [address] | | | | + + + + + + | ALT | 25Comment: Testing | 10 - 65 U/L | EXTERNAL | | | | performed at [facility];[address] | | LAB | | | | [address];[place] | | | | | | [address] | | | | + + + [...] | at [facility];[address] [place] [address] | | | | | | Bl;[place] [address] | | | | + + + [...]
--- OUTSIDE RECORDS SUMMARY | ~2019-10-12 | XMS | Encounter Summary ---
Demographics + + + | Address | [address] | | | [place] [address] | + + + | Home Phone [...] | Sammi Kohler | ECON | [place] [address] | | + + + + + Care Team Providers + +------+ + | Care Humanities Professor Name | Role | Phone | [...] + + | 02/08/ | Telephone | [facility] | Sanjuanita Rodriguez RN | T[facility] - Hosp [facility] | | 2020 | | TURNING MACHINE OPERATOR HELPER | | | | | | MANAGEMENT [address] | | | | | | [address] | | | | | | [place] | | | | | | [address] | | | | | | [phone] | | | +--------+ + + + [...] which he was seen and treated at [facility]. States capill ankur blood glucose is running 220 - 235 and that he is currently taking 80 units of Levemir n ightly. I let patient know that his last order was for 60 units nightly. Patient has a follo w up appointment with his primary care provider on 04/03/2019. This will be my final [facility] Care Management call. documented in this [facility] ounter Plan of Treatment +--------+ + + + + | Date | Type | Specialty | Care Team | Description | +--------+ + + + + | 10/16/ | Anti-coag | Anticoagulation | Brittany Zaragoza | | 2019 | visit | | [address] | | | | | | [facility] | | | | | | [place] [address] | | | | | | [phone] | | | | | | | | +--------+ + + + + documented as of this encounter Visit Diagnoses Not on filedocumented in this encounter
--- OUTSIDE RECORDS SUMMARY | ~2019-10-12 | XMS | Encounter Summary ---
Demographics + + + | Address | [address] | | | [place] [address] | + + + | Home Phone [...] + | Sammi Kohler | ECON | [place] [address] | | + + + + + Care Team Providers + +------+ + | Care Pmo Consultant Name | Role | Phone | + +------+ + PCP | Unavailable | + +------+ + Encounter Details +--------+ + + + + | Date | Type | Department | Care Team | Description | +--------+ + + + + | 05/16/ | Emergency | [facility] | Norah Barker MD | terminal carman (current) | | 2015 | | MEDICAL CENTER | [address] | use of | | | | EMERGENCY CENTER | [place] [address] | 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; | | | | [address] | [phone] | 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 Case Management by QUINN Richardson at 05/16/14 1343 Author: QUINN Richardson Service: (none) Author Type: Drier Tender Filed: 05/16/14 8459 Date of Service: 05/16/141222 Status: Signed Oracle Drm Consultant: QUINN Richardson (Drier Tender) COLTON ALERT: ED VISIT COUNT (1 YR) [...] the ED Care Guidelines Committee of the [facility] Consistent Care Program on May 21, 2013. No controlled substances should be administered in the ED or prescribed from the ED for sub jective pain. Past Medical & Surgical History: Primary Care Provider (PCP) is CRUZITO GUTIÉRREZ DO at [phone] . Notify PCP if giving any additional narcotics for objective findings. PCP supports enrollment in the [facility]. Medical History: 1. Diabetes-He is on a sliding scale after meals, routine insulin before meals and takes La ntus at night. A1C April, = 7.9%. He was referred to an bread room hand in February, 4. 2. Chest Pain- Coronary [...] the GE junction (requiring managem ent in [place] at ), rectal ulcer and internal hemorrhoids. 10. Hernia- He has been referred to Dr. Vargas. Problem List: He needs to make regular visits to see his PCP in light of his chronic conditions. This patient is developmentally delayed and has multiple chronic conditions and providers. He would benefit from having a Dermatologist assist him in coordinating his care. There is an alternate plan in place for Norah- He may take a taxi (paid for my ACCP) to the Urgent Care Clinic ([facility]) for evaluation instead of the ED. The have been provided his pertinent medical records. Norah and the [facility] are aware of this plan. History of Behavioral Health Conditions: He has depression and anxiety- This is managed by his PCP. He takes Paxil and abilify. He has been referred to [facility] in February. According to [facility], he never establish ed care. Patient has now been scheduled twice and cancels at the last minute. Pain/Opioid Agreement: Norah has an order at the Assisted Living Facility for hydrocodone as needed. He does not h ave a diagnosis of chronic pain. Please see [facility] for prescribing history. Social History or Identified Risk: - Fall Risk - Non adherence - Transportation Issues Social History: Norah lives at [facility] . He may require another level of care given the number of ED visits at enrollment (22 in the last year)-please contact his [facility] Ca se Back Closer (Fermin Preston) to discuss. Norah is developmentally delayed- Patient may benefit from having someone with him at his d octor's appointments. He has applied for Dial-A-Ride services (April,) Applied for a Health Home for this client through [facility]- please review Provider One to determ ine if one has been assigned. Additional Information: This patient is case managed by the [facility]. Please contact the management aide at your hospital for any immediate or post ED discharge needs this patient may have. Please contact Tari at [facility] at when patient pr esents [...] Notes by Todd Duarte RN at 05/16/14 4902 Author: Todd Duarte RN Service: (none) Author Type: Registered Nurse Filed: 05/16/145 Date of Service: 05/16/141328 Status: Signed Oracle Drm Consultant: Todd Duarte RN (Registered Nurse) Frequent PVC's noted on EKG Todd Duarte RN 05/16/14 1329 onver ivana Transaction, Provider Unknown - 05/16/2014 12:18 PM PDT ED Notes by Todd Duarte RN at 05/16/14 1218 Author: Todd Duarte RN Service: (none) Author Type: Registered Nurse Filed: 05/16/14 1219 Date of Service: 05/16/148 Status: Signed Oracle Drm Consultant: Todd Duarte RN (Registered Nurse) Patient stated [...] Date of Service: 05/16/14 1142 Status: Signed Oracle Drm Consultant: Norah Barker MD (Physician) [facility] Department of Emergency Medicine No [...] told him that he should go to [facility] emergency department for evaluation of his atrial fibrillation. Patient has long-standing history of the same and intermittently goes in and out of it. He states that he thinks of [facility] Coumadin is making his symptoms worse. He [...] CHOLECYSTECTOMY; Surgeon: Jevon Vargas DO; Location: [facility] MAIN OR; Service: General; Laterality: N/A; Abdominal surgery Cholecystectomy Skin cancer excision 10/10/2012 Procedure: EXCISION - SKIN CANCER; Surgeon: Sy Fierro MD; Location: [facility] MAIN OR ; Service: Plastics; Laterality: Left; upper arm and upper back w/frozen section Esophagogastroduodenoscopy 03/03/2013 Procedure: ESOPHAGOGASTRODUODENOSCOPY; Surgeon: Howie Gibson MD; Location: [facility] ENDOSCOPY; S ervice: Gastroenterology; Laterality: N/A; Colonoscopy 03/04/2013 Procedure: COLONOSCOPY; Surgeon: Hoiwe Gibson MD; Location: [facility] ENDOSCOPY; Service: Gastroe nterology; Laterality: N/A; Upper gastrointestinal endoscopy Skin biopsy Hernia repair 07/03/2013 Procedure: LAPAROSCOPIC - HERNIA - INCISIONAL; Surgeon: Jevon Vargas DO; Location: [facility] MAIN OR; Service: General; Laterality: N/A; Skin lesion excision Left 05/05/2014 Procedure: EXCISION - LESION - FROZEN SECTION; Surgeon: Sy Fierro MD; Location: [facility] MAIN OR; Service: Plastics; Laterality: Left; forearm Prior to Admission medications Medication Sig Start Date End Date Taking? Authorizing Provider Albuterol Sulfate (VENTOLIN HFA IN) Inhale 2 puffs into the lungs as needed. 108 mcg/act Historical Provider Mjuih-L-Msqrbztlxatat (BEANO) TABS Take 150 Units by mouth [...] mouth daily with breakfast. 05/08/14 05/08/15 Mervat Flowesr DO calcium carbonate (TUMS) 500 MG chewable [...] 100 mg by mouth nightly. Historical Provider ogwtstsab-iyvgrrjc-kygfmmoii hydroxide-simethicone Take 40 mLs by mouth daily [...] 1 tablet by mouth daily. 05/08/14 Yesica Flwoers DO Allergies Allergen Reactions Vitamin B12 Rash History Social History Marital Status: Spouse Name: N/A Number of Children: 1 Years of Education: s. [employer] Occupational History disabled Social History Main Topics [...] includes atrial fibrillation, atrial flutter, PACs, PVCs, AK, other. After discussing diagnostic and therapeutic options [...] Value Ref Range Date/Time POC cardiac troponin [[id number]] Collected: 05/16/14 1323 Order Status: Completed Updated: 05/16/14 1339 POC CARDIAC TROPONIN 0.00 0.00 - 0.10 ng/mL Cardiac Panel [[id number]] (Abnormal) Collected: 05/16/14 1225 Order Status: Completed [...] from 1147: Sinus rhythm at 81 bpm. OK, QRS, QT, and axis are normal. Isolated [...] interpreted by me. ED Diagnoses Final diagnoses Palpitations Paroxysmal a-fib Disposition: ED Disposition Discharge Condition at discharge: Stable Follow-up Information Follow up With Details Comments Contact Info Jerrell Gutiérrez DO Schedule an appointment as soon as possible for a visit [address] [place] [address] [facility] [address] [facility] Emergency Department If symptoms worsen [address] [address] Discharge Medications: New Prescriptions No new medications This document has been prepared with a voice recognition system. The possibility of "sound alike" air vice marshal errors, addition and/or deletions may occur. If there is any question p lease contact the author of the document. Procedures Additional Documentation Procedures Norah Barker MD 05/16/14 6323 documented in this en counter Plan of [...] | | | | | | [place] [address] | | | | | | [phone] | | | | | | | [...] Procedure Note | + + | RichardJoaquin Conversion - 09/20/2018 10:29 PM PDT This is [...] K/uL | LAB | | | | [facility];[address];[place] [address] | | | | + + + + + -+ | Non- | 5.12Comment: Testing | 4.20 - 5.70 | EXTERNAL | | | Red Blood | performed at [facility];[address] | M/uL | LAB | | | Cells | [address];[place] | | | | | Counted | [address] | | | | + + + + + -+ | Hemoglobin | 12.7 (L)Comment: Testing | 13.2 - 17.0 | EXTERNAL | | | | performed at [facility];888 | g/dL | LAB | | | | [address];[place] | | | | | | [address] | | | | + + + + + -+ | Hematocrit, | 40.1Comment: Testing | 39.0 - 50.0 % | EXTERNAL | | | POC | performed at [facility];[address] | | LAB | | | [address];[place] | | | | | | [address] | | | | + + + + + -+ | MCV | 78.4 (L)Comment: Testing | 80.0 - 100.0 fl | EXTERNAL | | | | performed at [facility];[address] | | LAB | | | [address];[place] | | | | | | [address] | | | | + + + + + -+ | MCH | 24.9 (L)Comment: Testing | 27.0 - 34.0 pg | EXTERNAL | | | | performed at [facility];[address] | | LAB | | | [address];[place] | | | | | | [address] | | | | + + + + + -+ | MCHC | 31.8 (L)Comment: Testing | 32.0 - 35.5 | EXTERNAL | | | | performed at [facility];[address] | g/dL | LAB | | | [address];[place] | | | | | | [address] | | | | + + + + + -+ | RDW-CV | 43.3Comment: Testing | 37 - 53 fl | EXTERNAL | | | | performed at [facility];[address] | | LAB | | | [address];[place] | | | | | | [address] | | | | + + + + + -+ | Platelet | 279Comment: Testing | 150 - 400 K/uL | EXTERNAL | | | Count | performed at [facility];[address] | | LAB | | | Plasma [address];[place] | | | | | | [address] | | | | + + + + + -+ | MPV | 7.8Comment: Testing | fl | EXTERNAL | | | | performed at [facility];[address] | | LAB | | | [address];[place] | | | | | | [address] | | | | + + + + + -+ | Differentia | AUTOMATEDComment: | | EXTERNAL | | | l Type | Testing performed at | | LAB | | | | [facility];[address];[place] [address] | | | | + + + + + -+ | % Segmented | 74.16Comment: Testing | % | EXTERNAL | | | | performed at [facility];[address] | | LAB | | | Neutrophils | [address];[place] | | | | | | [address] | | | | + + + + + -+ | % | 16.84Comment: Testing | % | EXTERNAL | | | Lymphocytes | performed at [facility];[address] | | LAB | | | [address];[place] | | | | | | [address] | | | | + + + + + -+ | % Monocytes | 6.45Comment: Testing | % | EXTERNAL | | | | performed at [facility];[address] | | LAB | | | [address];[place] | | | | | | [address] | | | | + + + + + -+ | % | 1.47Comment: Testing | % | EXTERNAL | | | Eosinophils | performed at [facility];[address] | | LAB | | | [address];[place] | | | | | | [address] | | | | + + + + + -+ | % Basophils | 1.08Comment: Testing | % | EXTERNAL | | | | performed at [facility];[address] | | LAB | | | [address];[place] | | | | | | [address] | | | | + + + + + -+ | Absolute | 8.71 (H)Comment: Testing | 1.90 - 7.40 | EXTERNAL | | | Segmented | performed at [facility];[address] | K/uL | LAB | | | Neutrophils | [address];[place] | | | | | | [address] | | | | + + + + + -+ | Absolute | 1.98Comment: Testing | 1.00 - 3.90 | EXTERNAL | | | Lymphocytes | performed at [facility];[address] | K/uL | LAB | | | [address];[place] | | | | | | [address] | | | | + + + + + -+ | Absolute | 0.76Comment: Testing | 0.00 - 0.80 | EXTERNAL | | | Monocytes | performed at [facility];[address] | K/uL | LAB | | | | [address];[place] | | | | | | [address] | | | | + + + + + -+ | Absolute | 0.17Comment: Testing | 0.00 - 0.50 | EXTERNAL | | | Eosinophils | performed at [facility];[address] | K/uL | LAB | | | | [address];[place] | | | | | | [address] | | | | + + + + + -+ | Absolute | 0.13 (H)Comment: Testing | 0.00 - 0.10 | EXTERNAL | | | Basophils | performed at [facility];[address] | K/uL | LAB | | | | [address];[place] | | | | | | [address] | | | | + + + + + -+ | Na | 140Comment: Testing | 135 - 143 | EXTERNAL | | | | performed at [facility];888 | mmol/L | LAB | | | [address];[place] | | | | | | [address] | | | | + + + + + -+ | K | 3.7Comment: Testing | 3.5 - 4.9 | EXTERNAL | | | | performed at [facility];888 | mmol/L | LAB | | | | [address];[place] | | | | | | [address] | | | | + + + + + -+ | Cl | 105Comment: Testing | 99 - 109 mmol/L | EXTERNAL | | | | performed at [facility];[address] | | LAB | | | [address];[place] | | | | | | [address] | | | | + + + + + -+ | CO2 | 29Comment: Testing | 23 - 32 mmol/L | EXTERNAL | | | | performed at [facility];[address] | | LAB | | | [address];[place] | | | | | | [address] | | | | + + + + + -+ | Anion Gap | 10Comment: Testing | 5 - 20 mmol/L | EXTERNAL | | | | performed at [facility];[address] | | LAB | | | | [address];[place] | | | | | | [address] | | | | + + + + + -+ | Glucose, | 182 (H)Comment: Testing | 65 - 99 mg/dL | EXTERNAL | | | Fasting | performed at [facility];[address] | | LAB | | | [address];[place] | | | | | | [address] | | | | + + + + + -+ | BUN | 15Comment: Testing | 8 - 25 mg/dL | EXTERNAL | | | | performed at [facility];[address] | | LAB | | | | [address];[place] | | | | | | [address] | | | | + + + + + -+ | Creatinine | 1.22Comment: Testing | 0.70 - 1.30 | EXTERNAL | | | | performed at [facility];[address] | mg/dL | LAB | | | | [address];[place] | | | | | | [address] | | | | + + + + + -+ | BUN/Creatin | 12Comment: Testing | | EXTERNAL | | | ine Ratio | performed at [facility];[address] | | LAB | | | | [address];[place] | | | | | | [address] | | | | + + + + + -+ | Calcium | 8.7Comment: Testing | 8.5 - 10.5 | EXTERNAL | | | | performed at [facility];888 | mg/dL | LAB | | | | [address];[place] | | | | | | [address] | | | | + + + + + -+ | Protein, | 7.5Comment: Testing | 6.3 - 8.2 g/dL | EXTERNAL | | | Total | performed at [facility];[address] | | LAB | | | [address];[place] | | | | | | [address] | | | | + + + + + -+ | Albumin | 3.6Comment: Testing | 3.6 - 5.0 g/dL | EXTERNAL | | | | performed at [facility];[address] | | LAB | | | | [address];[place] | | | | | | [address] | | | | + + + + + -+ | Globulin | 4.0Comment: Testing | 1.3 - 4.9 g/dL | EXTERNAL | | | | performed at [facility];[address] | | LAB | | | | [address];[place] | | | | | | [address] | | | | + + + + + -+ | A/G Ratio | 0.9 (L)Comment: Testing | 1.0 - 2.4 | EXTERNAL | | | | performed at [facility];[address] | | LAB | | | | [address];[place] | | | | | | [address] | | | | + + + + + -+ | Bilirubin | 0.2Comment: Testing | 0.1 - 1.5 mg/dL | EXTERNAL | | | Total | performed at [facility];[address] | | LAB | | | [address];[place] | | | | | | [address] | | | | + + + + + -+ | ALP, | 93Comment: Testing | 35 - 115 U/L | EXTERNAL | | | External | performed at [facility];[address] | | LAB | | | [address];[place] | | | | | | [address] | | | | + + + + + -+ | AST | 19Comment: Testing | 10 - 45 U/L | EXTERNAL | | | | performed at [facility];[address] | | LAB | | | [address];[place] | | | | | | [address] | | | | + + + + + -+ | ALT | 23Comment: Testing | 10 - 65 U/L | EXTERNAL | | | | performed at [facility];[address] | | LAB | | | [address];[place] | | | | | | [address] | | | | + + + [...] | at [facility];[address] | | | | | | [place] [address] | | | | + + + + + -+ | CK, Total | 133Comment: Testing | 55 - 400 U/L | EXTERNAL | | | | performed at [facility];[address] | | LAB | | | | [address];[place] | | | | | | [address] | | | | + + + [...] [place] | | | | | | [address] | | | | + + + + + -+ | aPTT, | 32Comment: Testing | 23 - 32 seconds | EXTERNAL | | | Patient | performed at [facility];[address] | | LAB | | | [address];[place] | | | | | | [address] | | | | + + + + + -+ | CK-MB | 3.9 (H)Comment: Testing | 0.5 - 3.6 ng/mL | EXTERNAL | | | | performed at [facility];[address] | | LAB | | | | [address];[place] | | | | | | [address] | | | | + + + [...] MENSAH CHEST 2 VIEW FRONTAL AND LATERAL 05/16/2014 [...] | | | | | | editorial manager LIZETTE WATERMAN (2) | | | | [...] + | Diagnosis | + + | 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 Long-term (current) use of 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 | + + | 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
--- OUTSIDE RECORDS SUMMARY | ~2019-10-12 | XMS | Encounter Summary ---
Demographics + + + | Address | [address] | | | [place] [address] | + + + | Home Phone [...] Sammi Kohler | ECON | [place] [address] | | + + + + + Care Team Providers + +------+ + | Care Creative Writing English Professor Name | Role | Phone | [...] | | | [address] | [place] [address] | | | | | [place], [place] | [phone] | | | | | [address] | | | | | | [phone] | | | +--------+ + + + [...] | | | | | [address] [place], | | | | | | [place] [address] | | | | | | [phone] | | | | | | | [...]
--- OUTSIDE RECORDS SUMMARY | ~2019-10-12 | XMS | Encounter Summary ---
Demographics + + + | Address | [address] | | | [place] [address] | + + + | Home Phone [...] + | Sammi Kohler | ECON | [place] [address] | | + + + + + Care Team Providers + +------+ + | Care Pool Hall Inspector Name | Role | Phone | + +------+ + PCP | Unavailable | + +------+ + Encounter Details +--------+ + + + + | Date | Type | Department | Care Team | Description | +--------+ + + + + | 08/27/ | Hospital | [facility] | | | | 2012 | Encounter | [facility] | | | | | | CLINICAL LABORATORY | | | | | | [address] | | | | | | [facility] [place] | | | | | | [address] | | | | | | [phone] | | | +--------+ + + + [...] | | | | | | [place] [address] | | | | | | [phone] | | | | | | | | +--------+ + + + + documented as of this encounter Visit Diagnoses Not on filedocumented in this encounter"
--- OUTSIDE RECORDS SUMMARY | ~2019-10-12 | XMS | Encounter Summary ---
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 Ambulated to nurses station sans assistance. Naren Ann RN 07/24/14302 osalina blanchard, Bimal Garcia MD - 07/24/2014 12:56 AM PDT ED Provider Notes by Bimal Ramirez DO at 07/24/1455 Author: Bimal Ramirez DO Service: (none) Author Type: Physician Filed: 07/25/14 0010 Date of Service: 07/24/1455 Status: Signed Cad Cam Programmer: Bimal Ramirez DO (Physician) [facility] Department of Emergency Medicine 12:56 AM 07/24/2014 History of Present Illness Patient Identification Kevyn Guzman is a 58 y.o. male. Patient information was obtained from patient. History/Exam limitations: none. Patient presented to the Emergency Department by: Nava Tracey 1723 (PCP: JERRELL GUTIÉRREZ.) Chief Complaint [...] pain Stroke (HCC) TIA (transient ischemic attack) [facility] (current) use of 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 Past Surgical History Procedure Laterality Date Unlisted procedure arthroscopy Knee surgery rt knee, patella Leg surgery LLE Colonoscopy Cholecystectomy, laparoscopic 09/12/2012 Procedure: LAPAROSCOPIC - CHOLECYSTECTOMY; Surgeon: Jevon Vargas DO; Location: [facility] MAIN OR; Service: General; Laterality: N/A; Abdominal surgery Cholecystectomy Skin cancer excision 10/10/2012 Procedure: EXCISION - SKIN CANCER; Surgeon: Sy Fierro MD; Location: [facility] MAIN OR ; Service: Plastics; Laterality: Left; upper arm and upper back w/frozen section Esophagogastroduodenoscopy 03/03/2013 Procedure: ESOPHAGOGASTRODUODENOSCOPY; Surgeon: Howie Gibson MD; Location: [facility] ENDOSCOPY; S ervice: Gastroenterology; Laterality: N/A; Colonoscopy 03/04/2013 Procedure: COLONOSCOPY; Surgeon: Howie Gibson MD; Location: [facility] ENDOSCOPY; Service: Gastroe nterology; Laterality: N/A; Upper gastrointestinal endoscopy Skin biopsy Hernia repair 07/03/2013 Procedure: LAPAROSCOPIC - HERNIA - INCISIONAL; Surgeon: Jevon Vargas DO; Location: [facility] MAIN OR; Service: General; Laterality: N/A; Skin lesion excision Left 05/05/2014 Procedure: EXCISION - LESION - FROZEN SECTION; Surgeon: Sy Fierro MD; Location: [facility] MAIN OR; Service: Plastics; Laterality: Left; forearm Prior to Admission medications Medication Sig Start Date End Date Taking? Authorizing Provider Albuterol Sulfate (VENTOLIN HFA IN) Inhale 2 puffs into the lungs as needed. 108 mcg/act Historical Provider Ucein-B-Eiryjibfedlqz (BEANO) TABS Take 150 Units by mouth [...] 100 mg by mouth nightly. Historical Provider kudpbofgj-aysnpkds-dbcaexunr hydroxide-simethicone Take 40 mLs by mouth daily [...] of Children: 1 Years of Education: s. [employer] Occupational History disabled Social History Main Topics [...] CV/Resp: Positive for chest pain Negative for jppchossg-rw-onbsck, cough GI: Positive for burping and nausea [...] reviewed (Using the electronic record system of [facility], I car efully reviewed the records with regard to the past medical/surgical history, previous medic ations, and allergies). Pt had recent admission for chest pain with stress test obtained at that time. Nursing notes reviewed for chief complaint, medications, clinical presentation and vital si gns. Laboratory Evaluation Results Procedure Component Value Ref Range Date/Time Amylase [[id number]] Collected: 07/24/1444 Order Status: Completed Updated: 07/24/14132 AMYLASE 31 25 - 115 U/L Lipase [[id number]] Collected: 07/24/1444 Order Status: Completed Updated: 07/24/14132 LIPASE 176 73 - 393 U/L Cardiac Panel [[id number]] (Abnormal) Collected: 07/24/1444 Order Status: Completed Updated: [...] ng/mL CK-MB Index 3.2 POC cardiac troponin [[id number]] Collected: 07/24/14 005 Order Status: Completed Updated: [...] Documented by Bimal Ramirez DO (07/24/14 03:02:30, [facility] Emergency Department, Emergency Medicine) Chest X-ray: No [...] 0053 Normal sinus rhythm at 77. Normal MS and RICHARD Normal QRS and [place] Normal QT and QTc Normal ST/T without [...] day [address] [facility] [address] [facility] Emergency Department If symptoms worsen [address] [place] [id number] Discharge Medications: Discharge Medication List as of 07/24/2014 3:07 AM This document has been prepared with a voice recognition system. The possibility of "sound alike" private inquiry agent errors, addition and/or deletions may occur. If [...] 07/24/1454 Date of Service: 07/24/1453 Status: Signed Cad Cam Programmer: Yanna Loera RN (Registered Nurse) Pt c/o midsternal chest pain/SOB/nausea starting this morning. Pt updated on plan of care, call light within reach. Yanna Loera RN 07/24/1454 onver ivana Transaction, Provider Unknown - 07/24/2014 12:41 AM PDT ED Notes by Naren Ann RN at 07/24/1440 Author: Naren Ann RN Service: (none) Author Type: Registered Nurse Filed: 07/24/1440 Date of Service: 07/24/1440 Status: Signed Cad Cam Programmer: Naren Ann RN (Registered Nurse) Bed: 02 Expected date: Expected time: Means of arrival: Comments: EMS onver ivana Transaction, Provider Unknown - 07/24/2014 12:37 AM PDT ED Notes by Vadim Bernal RN at 07/24/1436 Author: Vadim Bernal RN Service: (none) Author Type: Registered Nurse Filed: 07/24/1437 Date of Service: 07/24/1436 Status: Signed Cad Cam Programmer: Vadim Bernal RN (Registered Nurse) Per EMS: Patient complains of numbness and tingling to left side. EMS notes good equal cinnamon grinder, no fac ial droop, no slurred speech. [...] | | | | | [address] [place] [place], | | | | | | [place] [address] | | | | | | [phone] | | | | | | | [...] | | | Electronically signed by Refugio Barahona, on Jul 24 2014 2:18AM | | | Referring Provider Line: [phone] ID: [id number] | | + + + [...] RADIA Electronically signed by | | Refugio Barahona, on Jul 24 2014 2:18AM Referring Provider Line: [phone] ID: [id number] | |FINDINGS: | |Parenchyma: No [...] | | | | | avid editor Usha Arellano | | | | | | (98) on 07/24/2014 | | | | | | 2:09:05 AM | | | | + + + + + + + + | Specimen | + + | | + + + + + | Narrative | Performed At | + + + | [facility] Epic environment | EXTERNAL [...] | | | | performed at [facility] | K/uL | LAB | | | | [address];[place] | | | | | | [address] | | | | + + + + + -+ | Non- | 5.05Comment: Testing | 4.20 - 5.70 | EXTERNAL | | | Red Blood | performed at [facility];[address] | M/uL | LAB | | | Cells | [address];[place] | | | | | Counted | [address] | | | | + + + + + -+ | Hemoglobin | 12.9 (L)Comment: Testing | 13.2 - 17.0 | EXTERNAL | | | | performed at [facility];[address] | g/dL | LAB | | | | [address];[place] | | | | | | [address] | | | | + + + + + -+ | Hematocrit, | 39.5Comment: Testing | 39.0 - 50.0 % | EXTERNAL | | | POC | performed at [facility];[address] | | LAB | | | | [address];[place] | | | | | | [address] | | | | + + + + + -+ | MCV | 78.2 (L)Comment: Testing | 80.0 - 100.0 fl | EXTERNAL | | | | performed at [facility];[address] | | LAB | | | | [address];[place] | | | | | | [address] | | | | + + + + + -+ | MCH | 25.4 (L)Comment: Testing | 27.0 - 34.0 pg | EXTERNAL | | | | performed at [facility];[address] | | LAB | | | | [address];[place] | | | | | | [address] | | | | + + + + + -+ | MCHC | 32.5Comment: Testing | 32.0 - 35.5 | EXTERNAL | | | | performed at [facility];[address] | g/dL | LAB | | | | [address];[place] | | | | | | [address] | | | | + + + + + -+ | RDW-CV | 46.8Comment: Testing | 37 - 53 fl | EXTERNAL | | | | performed at [facility];[address] | | LAB | | | | [address];[place] | | | | | | [address] | | | | + + + + + -+ | Platelet | 311Comment: Testing | 150 - 400 K/uL | EXTERNAL | | | Count | performed at [facility];[address] | | LAB | | | Plasma | [address];[place] | | | | | | [address] | | | | + + + + + -+ | MPV | 7.9Comment: Testing | fl | EXTERNAL | | | | performed at [facility];[address] | | LAB | | | | [address];[place] | | | | | | [address] | | | | + + + + + -+ | Differentia | AUTOMATEDComment: | | EXTERNAL | | | l Type | Testing performed at | | LAB | | | | [facility];[address];[place] [address] | | | | + + + + + -+ | % Segmented | 64.50Comment: Testing | % | EXTERNAL | | | | performed at [facility];[address] | | LAB | | | Neutrophils | [address];[place] | | | | | | [address] | | | | + + + + + -+ | % | 22.29Comment: Testing | % | EXTERNAL | | | Lymphocytes | performed at [facility];[address] | | LAB | | | | [address];[place] | | | | | | [address] | | | | + + + + + -+ | % Monocytes | 8.95Comment: Testing | % | EXTERNAL | | | | performed at [facility];[address] | | LAB | | | | [address];[place] | | | | | | [address] | | | | + + + + + -+ | % | 3.62Comment: Testing | % | EXTERNAL | | | Eosinophils | performed at [facility];[address] | | LAB | | | | [address];[place] | | | | | | [address] | | | | + + + + + -+ | % Basophils | 0.64Comment: Testing | % | EXTERNAL | | | | performed at [facility];[address] | | LAB | | | | [address];[place] | | | | | | [address] | | | | + + + + + -+ | Absolute | 6.46Comment: Testing | 1.90 - 7.40 | EXTERNAL | | | Segmented | performed at [facility];[address] | K/uL | LAB | | | Neutrophils | [address];[place] | | | | | | [address] | | | | + + + + + -+ | Absolute | 2.23Comment: Testing | 1.00 - 3.90 | EXTERNAL | | | Lymphocytes | performed at [facility];[address] | K/uL | LAB | | | | [address];[place] | | | | | | [address] | | | | + + + + + -+ | Absolute | 0.90 (H)Comment: Testing | 0.00 - 0.80 | EXTERNAL | | | Monocytes | performed at [facility];[address] | K/uL | LAB | | | | [address];[place] | | | | | | [address] | | | | + + + + + -+ | Absolute | 0.36Comment: Testing | 0.00 - 0.50 | EXTERNAL | | | Eosinophils | performed at [facility];[address] | K/uL | LAB | | | | [address];[place] | | | | | | [address] | | | | + + + + + -+ | Absolute | 0.06Comment: Testing | 0.00 - 0.10 | EXTERNAL | | | Basophils | performed at [facility];[address] | K/uL | LAB | | | | [address];[place] | | | | | | [address] | | | | + + + + + -+ | Na | 144 (H)Comment: Testing | 135 - 143 | EXTERNAL | | | | performed at [facility];[address] | mmol/L | LAB | | | | [address];[place] | | | | | | [address] | | | | + + + + + -+ | K | 3.8Comment: Testing | 3.5 - 4.9 | EXTERNAL | | | | performed at [facility];[address] | mmol/L | LAB | | | | [address];[place] | | | | | | [address] | | | | + + + + + -+ | Cl | 110 (H)Comment: Testing | 99 - 109 mmol/L | EXTERNAL | | | | performed at [facility];[address] | | LAB | | | | [address];[place] | | | | | | [address] | | | | + + + + + -+ | CO2 | 27Comment: Testing | 23 - 32 mmol/L | EXTERNAL | | | | performed at [facility];[address] | | LAB | | | | [address];[place] | | | | | | [address] | | | | + + + + + -+ | Anion Gap | 11Comment: Testing | 5 - 20 mmol/L | EXTERNAL | | | | performed at [facility];[address] | | LAB | | | | [address];[place] | | | | | | [address] | | | | + + + + + -+ | Glucose, | 125 (H)Comment: Testing | 65 - 99 mg/dL | EXTERNAL | | | Fasting | performed at [facility];[address] | | LAB | | | | [address];[place] | | | | | | [address] | | | | + + + + + -+ | BUN | 13Comment: Testing | 8 - 25 mg/dL | EXTERNAL | | | | performed at [facility];[address] | | LAB | | | | [address];[place] | | | | | | [address] | | | | + + + + + -+ | Creatinine | 0.93Comment: Testing | 0.70 - 1.30 | EXTERNAL | | | | performed at [facility];[address] | mg/dL | LAB | | | | [address];[place] | | | | | | [address] | | | | + + + + + -+ | BUN/Creatin | 14Comment: Testing | | EXTERNAL | | | ine Ratio | performed at [facility];[address] | | LAB | | | | [address];[place] | | | | | | [address] | | | | + + + + + -+ | Calcium | 8.3 (L)Comment: Testing | 8.5 - 10.5 | EXTERNAL | | | | performed at [facility];[address] | mg/dL | LAB | | | | [address];[place] | | | | | | [address] | | | | + + + + + -+ | Protein, | 7.3Comment: Testing | 6.3 - 8.2 g/dL | EXTERNAL | | | Total | performed at [facility];[address] | | LAB | | | | [address];[place] | | | | | | [address] | | | | + + + + + -+ | Albumin | 3.3 (L)Comment: Testing | 3.6 - 5.0 g/dL | EXTERNAL | | | | performed at [facility];[address] | | LAB | | | | [address];[place] | | | | | | [address] | | | | + + + + + -+ | Globulin | 4.0Comment: Testing | 1.3 - 4.9 g/dL | EXTERNAL | | | | performed at [facility];[address] | | LAB | | | | [address];[place] | | | | | | [address] | | | | + + + + + -+ | A/G Ratio | 0.8 (L)Comment: Testing | 1.0 - 2.4 | EXTERNAL | | | | performed at [facility];[address] | | LAB | | | | [address];[place] | | | | | | [address] | | | | + + + + + -+ | Bilirubin | 0.3Comment: Testing | 0.1 - 1.5 mg/dL | EXTERNAL | | | Total | performed at [facility];[address] | | LAB | | | | [address];[place] | | | | | | [address] | | | | + + + + + -+ | ALP, | 92Comment: Testing | 35 - 115 U/L | EXTERNAL | | | External | performed at [facility];[address] | | LAB | | | | [address];[place] | | | | | | [address] | | | | + + + + + -+ | AST | 22Comment: Testing | 10 - 45 U/L | EXTERNAL | | | | performed at [facility];[address] | | LAB | | | | [address];[place] | | | | | | [address] | | | | + + + + + -+ | ALT | 22Comment: Testing | 10 - 65 U/L | EXTERNAL | | | | performed at [facility];[address] | | LAB | | | | [address];[place] | | | | | | [address] | | | | + + + [...] | | | | | at [facility];[address];[place] [address] | | | | + + + + + -+ | CK, Total | 101Comment: Testing | 55 - 400 U/L | EXTERNAL | | | | performed at [facility];[address] | | LAB | | | | [address];[place] | | | | | | [address] | | | | + + + [...] | | | | performed at [facility];[address] | | | | | | [address];[place] | | | | | | [address] | | | | + + + + + -+ | aPTT, | 32Comment: Testing | 23 - 32 seconds | EXTERNAL | | | Patient | performed at [facility];[address] | | LAB | | | | [address];[place] | | | | | | [address] | | | | + + + + + -+ | CK-MB | 3.2Comment: Testing | 0.5 - 3.6 ng/mL | EXTERNAL | | | | performed at [facility];[address] | | LAB | | | | [address];[place] | | | | | | [address] | | | | + + + [...] | | | | performed at [facility];[address] | | LAB | | | | [facility];[place], [place] | | | | | | [address] | | | | + + + [...] | | | | performed at [facility];[address] | | LAB | | | | [address];[place] | | | | | | [address] | | | | + + + [...]
--- OUTSIDE RECORDS SUMMARY | ~2019-10-12 | XMS | Encounter Summary ---
Demographics + + + | Address | [address] | | | [place] [address] | + + + | Home Phone [...] + + | Author | [facility] | | | and [place] | + + + | Organization | [facility] | | | and [place] | + + + | Address | Unknown | + + + | Phone | Unavailable | + + + Support + + + + + | Name | Relationship | Address | Phone | + + + + + | Sammi Kohler | ECON | [place] [address] | | + + + + + Care Team Providers + +------+ + | Care Financial Foundations Representative Name | Role | Phone | + +------+ + PCP | Unavailable | + +------+ + Encounter Details +--------+ + + + + | Date | Type | Department | Care Team | Description | +--------+ + + + + | 12/27/ | Hospital | [facility] | Kristian Meadows, | Acute chest pain | | 2015 - | Encounter | MEDICAL CENTER | [address] | | | | | CLINICAL DECISION | [place] [address] | | | 12/28/ | | [address] | [phone] | | | 2015 | | [place], [place] | | | | | | [address] | | | | | | [phone] | | | +--------+ + + + [...] documented as of this encounter Discharge Summaries Syd Varghese MD - 12/28/2014 9:40 AM PSTFormatting of this note might be different fr om the original. Discharge Summaries by Syd Varghese MD at 12/28/14939 Author: Syd Varghese MD Service: (none) Author Type: Physician Filed: 12/28/1444 Date of Service: 12/28/14939 Status: Signed Rehab Office Coordinator: Syd Varghese MD (Physician) Patient ID: Norah Gr [id number] 59 y.o. 1955 Admit date: 12/27/2014 Discharge date: Admitting Physician: Kristian Meadows MD Discharge Physician: Syd Varghese MD Discharge Diagnoses: Acute chest pain [R07.9] This is a 59-year-old male with the followin. Chest pain. - No recurrence Neg trop 2. COPD. - controlled 3. Obstructive sleep apnea. noncompliant with CPAP 5. Depression/anxiety. 6. Hypertension 7. Atrial fibrillation. 8. DVT prophylaxis. SCDs and subcutaneous heparin. 9. History of developmental delay. 10. Chronic hypertriglyceridemia 11. Type 2 DM A1c 7.4 Discharged Condition: stable HPI from admitting physician: Coronary artery disease, which is nonocclusive. The patient had previous cardiac catheteriz ation on October 15, 2013, which showed only minimal atherosclerosis with big-diameter vess els, normal left ventricular systolic function, and at that time the patient's chest pain wa s judged to be nonischemic. He has a nuclear medicine myocardial perfusion stress test on 2014, which showed normal myocardial perfusion study without evidence of ischemia with EF of 60%. The patient has had multiple visits to the emergency room with various types of complaints of pain in various locations of his body. He was last seen in the emergency room for chest pain 2 weeks ago, which was deemed to be noncardiac and the patient was discharged home. He had a recent fall at home with laceration of the right-sided forehead, which is no w healing. He also had recent visit to the emergency room with shortness of breath. The patient woke up today and shortly after getting up from his bed started to experience s ubsternal chest discomfort. The pain was quite severe according to the patient reaching a se verity of 8/10 on the pain scale. It persisted for a number of hours before the patient ment ioned it to his supporting staff, and the patient was transported to the freestanding emerge ncy room for evaluation. He was seen in the ER. He was evaluated by Dr. Calvo. Initial 12-l ead EKG and troponins were negative. The patient's chest pain improved while in the emergenc y room. He is going to be admitted for observation under rule out CA protocol under the Hosp italist Service. We will not be planning on stress test as the patient had recent negative s tudy, and his 2013 cardiac catheterization showed only minimal coronary artery disease. Hospital Course: Serial trop neg. Since 2013 Cath was minimal disease then no further testing is needed. F chris-up with his PCP - Discuss with him regarding anticoagulation, medical non-compliance. Ariel management of his diabetes. Discharge Exam: Constitutional: Alert and oriented to [...] normal mood and affect. Behavior is normal. Medication List CHANGE how you take these medications HYDROcodone-acetaminophen 5-325 MG per tablet Refills: 0 Commonly known as: NORCO What changed: Another medication with the same name was removed. Continue taking this medi cation, and follow the directions you see here. insulin glargine 100 UNIT/ML injection QTY: 10 mL Refills: 12 Commonly known as: LANTUS Inject 82 Units into the skin nightly. What changed: how much to take CONTINUE taking these medications acetaminophen 500 MG tablet QTY: 30 tablet Refills: 0 Commonly known as: TYLENOL Take 2 tablets by mouth every 6 (six) hours as needed for Pain or Fever. Do not take more t osorio 8 in a 24 hour period amLODIPine 10 MG tablet QTY: 30 tablet [...] MCG/ACT inhaler Refills: 0 Generic drug: mometasone-formoterol famotidine 20 MG tablet QTY: 30 tablet Refills: 0 Commonly known as: PEPCID Take 1 tablet by mouth 2 (two) times daily. fenofibrate 160 MG tablet Refills: 0 Commonly known as: TRICOR fluconazole 150 MG tablet QTY: 4 tablet [...] tablet Refills: 0 Commonly known as: LaMICtal ovnfzqjzw-acrxwqmb-lbzlcggvk hydroxide-simethicone Refills: 0 lisinopril 40 MG tablet [...] Or as directed by the Coumadin Clinic Disposition: Home Patient Instructions: Follow-up with PCP in 1 week See your PCP sooner or return to hospital if there are concerning symptoms Discharge took more than 35 minutes, to include final examination, discussion of admission, and preparation of prescriptions, instructions for ongoing care, follow up and dictation of summary. Signed: SYD VARGHESE 12/28/2014 9:40 AM Cleo light in this encounter Medications at Time [...] Progress Notes Conversion Transaction, Provider Unknown - 12/28/2014 9:40 AM PSTFormatting of this note m ight be different from the original. Nurse Progress Note by Magaly Sim RN at 12/28/14939 Author: Magaly Sim RN Service: (none) Author Type: Registered Nurse Filed: 12/28/14939 Date of Service: 12/28/14939 Status: Signed Rehab Office Coordinator: Magaly Sim RN (Registered Nurse) Pt discharged. IV removed. Instructions given and pt states understanding. No c/o at this time. Discharged with family. onver ivana Transaction, Provider Unknown - 12/28/2014 8:58 AM PST Case Management by Elaine Garcia RN at 12/28/14857 Author: Elaine Garcia RN Service: (none) Author Type: Registered Nurse Filed: 12/28/14905 Date of Service: 12/28/14857 Status: Signed Rehab Office Coordinator: Elaine Garcia RN (Registered Nurse) LARA spoke with patient and reviewed living arrangements. Norah moved into his apartment 6 m onths ago with Yuri his roommate who also left and assisted living facility. They share al l expenses 50/50 "except for his movies. He pays for them". He is enjoying his independence with the ability to come and go as he pleases. He is independent with all ADL's and mobility . Gambling was discussed and Norah said that he has only gambled 2 times since he moved out . He stated that he had been talked to about calling 911 at the [employer] and getting a taxi ri de home from the ED. He said that it was a panic attack and that he only did this once. We r eviewed how it looked to others that he spent his money gambling and then asked for a free r vidya home afterward his ED visit. He agreed that it did appear wrong. Norah is able to provi de for his basic needs Danny heath Transaction, Provider Unknown - 12/27/2014 3:36 PM PST Progress Notes by Melania Bautista RPH at 12/27/141535 Author: Melania Bautista RPH Service: (none) Author Type: Pharmacist Filed: 12/27/141535 Date of Service: 12/27/141535 Status: Signed Rehab Office Coordinator: Melania Bautista RPH (Pharmacist) Renal Dosing Monitoring: Norah Gr 59 y.o. male Pharmacy dosing for renal function per Dr. Meadows Estimated Creatinine Clearance: 124.4 mL/min (by C-G formula based on Cr of 0.77). Plan per protocol: Based on current levels, medications do not require adjustment for renal function. Pharmacy will continue monitoring patient for appropriate dosing per renal function. 12/27/2014 3:35 PM Pharmacist: Melania Bautista onver ivana Transaction, Provider Unknown - 12/27/2014 1:05 PM PST Case Management by QUINN White at 12/27/14 0067 Author: QUINN White Service: (none) Author Type: Advisory Intern Filed: 12/27/14 6418 Date of Service: 12/27/14 2087 Status: Signed Rehab Office Coordinator: QUINN White (Advisory Intern) Pt is enrolled in consistent Care program, care guidelines noted below: Care Recommendation: Norah moved out of the Assisted Living Facility out into an apartment on his own. This is a gainst the better judgement of most people involved-he insists on living on his own. He gambles in [employer] and may be calling 911 to get a "ride" home-he knows he can get a t axi ride home from the ED. The following guidelines were formulated by the ED Care Guidelines Committee of the [facility] Consistent Care Program on May 21, 2013. No controlled substances should be administered in the ED or prescribed from the ED for sub jective pain. Medical/Surgical History: Primary Care Provider (PCP) is CRUZITO GUTIÉRREZ DO at [phone] . Notify PCP if giving any additional narcotics for objective findings. PCP supports enrollment in the [email or web address] Program. Medical History: 1. Diabetes-He is on a sliding scale after meals, routine insulin before meals and takes La ntus at night. A1C April, = 7.9%. He was referred to an stave block splitter in February, 4. 2. Chest Pain- Coronary Angiography (10/20) showed no significant underlying CAD. His cardio logist is Dr Sterling. Stress test 07/21 negative. EF 60% 3. COPD- He take symbicort, Spiriva and albuterol, home O2 4. Hypertension- Patient feels that this is related to his anxiety. 5. Obstructive Sleep apnea- He is non-compliant with his CPAP-he has been referred to Dr. Y u. 6. History of ARF- He has been referred to Dr. Lyons for nephrology. 7. Atrial Fibrillation-He is on Coumadin 5mg daily. 8. Developmental delay 9. GI Bleed- EGD in February, shows 1.2 cm nodule at the GE junction (requiring managem ent in [place] at ), rectal ulcer and internal hemorrhoids. 10. Hernia- He has been referred to Dr. Vargas. 11. TIA- March, Mental Health: He has depression and anxiety- This is managed by his PCP. He takes Paxil and abilify. He has been referred to [facility] in February. According to [facility], he never establish ed care. Patient has now been scheduled twice and cancels at the last minute. Social History: He lives in an apartment of his own with a roommate, He has caregiving hours through [facility]. His Lab Clerk is Fermin at [facility]. Norah is developmentally delayed- Patient may benefit from having someone with him at his d lylaor's appointments. He has applied for Dial-A-Ride services (April,) Applied for a Health Home for this client through [facility]- please review Provider One to determ ine if one has been assigned. Problem List: He needs to make regular visits to see his PCP in light of his chronic conditions. This patient is developmentally delayed and has multiple chronic conditions and providers. He would benefit from having a Lab Clerk assist him in coordinating his care. There is an alternate plan in place for Norah- He may take a taxi (paid for my ACCP) to the Urgent Care Clinic ([facility] on [address]) for evaluation instead of the ED. The have been provided his pertinent medical records. Norah and the [facility] are aware of this plan. Norah has been known to call 911 from the [employer] to be transported to the ED, he knows he c an get a taxi ride home from the ED. Pain/Opioid Agreement: He has an order for hydrocodone as needed He does not have a diagnosis of chronic pain. Ple ase see SUPPLEMENTAL MANAGER for prescribing history. Social History or Identified Risk: - Fall Risk - Non adherence - Transportation Issues Additional Information: This patient is case managed by the [facility] Program. Please contact the environmental attorney at your hospital for any immediate or post ED discharge needs this patient may have. Please contact Tari at [facility] at when patient pr esents to ED. You may also contact for additional information These are guidelines and the provider should exercise clinical judgment when providing care . Last Modified by Ema Laura on Jul 17, 2014 Oleg Hubbard onver ivana Transaction, Provider Unknown - 12/27/2014 1:02 PM PST Case Management by QUINN White at 12/27/14 1302 Author: QUINN White Service: (none) Author Type: Advisory Intern Filed: 12/27/14 8502 Date of Service: 12/27/14 1302 Status: Signed Rehab Office Coordinator: QUINN White (Advisory Intern) 12/27/14 1300 Discharge Planning Evaluation Admitting Diagnosis Chest pain r/o Readmission No Living Arrangements Friends Support Systems Friends/neighbors Type of Residence Private residence Independent with ADL's Yes Independent with Mobility Yes Mental Status Oriented Prior functional status indpt, walker at home, Anticipated Discharge Plan Post Acute Care Needs None at this time Resources Financial concerns No Transportation issues No Patient/Family concerns No Prescription Plan Yes Anticipated Disposition Facility Type Home Met with: pt, who is DD - pt moved out of [facility] and now living on own with a room mate and di scussed discharge planning, Pt is a 59 y.o., male, lives in [place] with a room mate - pt r eports to managing own care has a room mate, pt is indpt with adls, walker at home, LEONEL to a ppts, pt has pcp, ins, [facility] follow pt as well, Pt does have in home caregiving hours Patient's PCP is: EDIN GUTIÉRREZ Patient's insurance: Medicare / [employer] Coverage concerns: no concerns Medication coverage/concerns: no concerns Community resources utilized / needed: already set up with in home care - through [facility] Assistance in transportation: LEONEL or Room mate Identification of any specific education / training: TBD Barriers to Discharge / Alternative housing needed: none at this itme Anticipated DCP: home Oleg Hubbard docume nted in this encounter H&P Notes Kristian Varghese MD - 12/27/2014 1:03 PM PST H&P by Kristian Meadows MD at 12/27/14 1303 Author: Kristian Meadows MD Service: Hospitalist Author Type: Physician Filed: 12/28/14 1029 Date of Service: 12/27/14 1303 Status: Signed Rehab Office Coordinator: Kristian Meadows MD (Physician) Related Notes: Original Note by Kristian Meadows MD (Physician) filed at 12/27/14 1606 [facility] Service: Hospitalist Admission History & Physical Date of Admission: 12/27/2014 Reason for Admission: chest pain; CHRISTOPHER History Obtained From: Patient and ER MD CHIEF COMPLAINT: Chest pain HISTORY OF PRESENT ILLNESS The patient is a 59 y.o. male with significant past medical history of Coronary artery disease, which is nonocclusive. The patient had previous cardiac catheteriz ation on October 15, 2013, which showed only minimal atherosclerosis with big-diameter vess els, normal left ventricular systolic function, and at that time the patient's chest pain wa s judged to be nonischemic. He has a nuclear medicine myocardial perfusion stress test on 2014, which showed normal myocardial perfusion study without evidence of ischemia with EF of 60%. The patient has had multiple visits to the emergency room with various types of complaints of pain in various locations of his body. He was last seen in the emergency room for chest pain 2 weeks ago, which was deemed to be noncardiac and the patient was discharged home. He had a recent fall at home with laceration of the right-sided forehead, which is no w healing. He also had recent visit to the emergency room with shortness of breath. The patient woke up today and shortly after getting up from his bed started to experience s ubsternal chest discomfort. The pain was quite severe according to the patient reaching a se verity of 8/10 on the pain scale. It persisted for a number of hours before the patient ment ioned it to his supporting staff, and the patient was transported to the freestanding emerge ncy room for evaluation. He was seen in the ER. He was evaluated by Dr. Calvo. Initial 12-l ead EKG and troponins were negative. The patient's chest pain improved while in the emergenc y room. He is going to be admitted for observation under rule out CA protocol under the Hosp italist Service. We will not be planning on stress test as the patient had recent negative s tudy, and his 2013 cardiac catheterization showed only minimal coronary artery disease. Factors that made cp better: standing position. Associated symptoms : none REVIEW OF SYSTEMS Review of Systems Constitutional: Negative for fever and chills. HENT: Negative for ear pain, hearing loss and tinnitus. Eyes: Negative for blurred vision, double vision, photophobia and redness. Respiratory: Negative for cough and hemoptysis. Cardiovascular: Positive for chest pain. Negative for palpitations, orthopnea, claudication , leg swelling and PND. Gastrointestinal: Negative for heartburn, nausea, vomiting, abdominal pain, diarrhea and me christen. Genitourinary: Negative for dysuria, urgency, frequency and flank pain. Musculoskeletal: Negative for myalgias and neck pain. Skin: Negative for itching. Neurological: Negative for dizziness, tingling, tremors, focal weakness, seizures, loss of consciousness, weakness and headaches. Endo/Heme/Allergies: Negative for polydipsia. Past Medical History Diagnosis Date Diabetes mellitus type II Atrial fibrillation (HCC) Hypertension Hyperlipidemia Anxiety Depression Renal failure ARF (acute renal failure) ([facility]) 03/02/2013 COPD (chronic obstructive pulmonary disease) ([facility]) 03/02/2013 hypoxemia on 2 lts [...] CHOLECYSTECTOMY; Surgeon: Jevon Vargas DO; Location: [facility]; Service: General; Laterality: N/A; Abdominal surgery Cholecystectomy Skin cancer excision 10/10/2012 Procedure: EXCISION - SKIN CANCER; Surgeon: Sy Fierro MD; Location: [facility] ; Service: Plastics; Laterality: Left; upper arm and upper back w/frozen section Esophagogastroduodenoscopy 03/03/2013 Procedure: ESOPHAGOGASTRODUODENOSCOPY; Surgeon: Howie Gibson MD; Location: [facility]; S ervice: Gastroenterology; Laterality: N/A; Colonoscopy 03/04/2013 Procedure: COLONOSCOPY; Surgeon: Howie Gibson MD; Location: [facility]; Service: Gastroe nterology; Laterality: N/A; Upper gastrointestinal endoscopy Skin biopsy Hernia repair 07/03/2013 Procedure: LAPAROSCOPIC - HERNIA - INCISIONAL; Surgeon: Jevon Vargas DO; Location: [facility]; Service: General; Laterality: N/A; Skin lesion excision Left 05/05/2014 Procedure: EXCISION - LESION - FROZEN SECTION; Surgeon: Sy Fierro MD; Location: [facility]; Service: Plastics; Laterality: Left; forearm Allergies Allergen Reactions Vitamin B12 Rash Prior to Admission medications Medication Sig Start Date End Date Taking? Authorizing Provider acetaminophen (TYLENOL) 500 MG tablet Take 2 tablets by mouth every 6 (six) hours as needed for Pain or Fever. Do not take more than 8 in a 24 hour period 12/21/14 12/31/14 Yes Jose Flor MD Albuterol Sulfate (VENTOLIN HFA IN) Inhale 2 puffs into the lungs as needed. 108 mcg/act Yes Historical Provider Kyvvj-X-Wzxvdjpwwiruk (BEANO) TABS Take 150 Units by mouth [...] daily with breakfast. 05/08/14 05/08/15 Yes Jose Flowers DO calcium carbonate (TUMS) 500 MG [...] sinus pressure). 09/27/14 09/27/15 Yes Elmo Thorne, gabapentin (NEURONTIN) 100 MG capsule Take 100 [...] 60 Units into the skin nightly. 12/03/13 Yes Augustine Agosto MD lamoTRIgine (LAMICTAL) 100 MG tablet Take 100 mg by mouth nightly. Yes Historical Provide r poorhpxjz-hkhqrtta-eqjwkzmlf hydroxide-simethicone Take 40 mLs by mouth daily [...] once a week for prophylaxis. 06/26/14 06/26/15 Yes TERRY Agosto tamsulosin (FLOMAX) 0.4 MG [...] [facility] 12/19/14 Yes CITLALY Leonard furosemide (LASIX) 20 MG tablet Take 1 tablet by mouth daily. 04/09/14 04/09/15 Marcos eastman MD Family History Problem Relation Age of [...] 6 months. PHYSICAL EXAM Vital Signs: BP 186/86 mmHg | Pulse 76 | Temp(Src) 98.1 F (36.7 C) (Oral) | Resp 16 | Ht 1.778 m (5' 10") | Wt 106.14 kg (233 lb 15.9 oz) | BMI 33.57 kg/m2 | SpO2 96% Physical Exam Constitutional: He is oriented to person, place, and time. He appears well-developed. HENT: Head: Normocephalic. Mouth/Throat: Oropharynx is clear and moist. No oropharyngeal exudate. Healing R forehead laceration with wound edges approximated by remnant of dermal adhesive Eyes: Pupils are equal, round, and reactive to light. No scleral icterus. Neck: No JVD present. No carotid bruit Cardiovascular: Normal rate and regular rhythm. No [...] has normal reflexes. No cranial nerve deficit. Coordination normal. Skin: Skin is warm and dry. He is not diaphoretic. DATA Admission on 12/27/2014 Component Date Value Ref Range Status WBC 12/27/2014 10.63 3.80 - 11.00 K/uL Final RBC 12/27/2014 5.31 4.20 - 5.70 M/uL Final HGB 12/27/2014 12.8* 13.2 - 17.0 g/dL Final HCT 12/27/2014 40.0 39.0 - 50.0 % Final MCV 12/27/2014 75.3* 80.0 - 100.0 fl Final MCH 12/27/2014 24.1* 27.0 - 34.0 pg Final MCHC 12/27/2014 32.0 32.0 - 35.5 g/dL Final RDW SD 12/27/2014 43.8 37 - 53 fl Final PLT 12/27/2014 291 150 - 400 K/uL Final MPV 12/27/2014 7.8 Final DIFF TYPE 12/27/2014 AUTOMATED Final NEUTROPHILS 12/27/2014 47.82 Final LYMPHOCYTES 12/27/2014 33.12 Final MONOCYTES 12/27/2014 11.18 Final EOSINOPHILS 12/27/2014 7.17 Final BASOPHILS 12/27/2014 0.71 Final NEUTROPHILS ABS 12/27/2014 5.08 1.90 - 7.40 K/uL Final LYMPHOCYTES ABS 12/27/2014 3.52 1.00 - 3.90 K/uL Final MONOCYTES ABS 12/27/2014 1.19* 0.00 - 0.80 K/uL Final EOSINOPHILS ABS 12/27/2014 0.76* 0.00 - 0.50 K/uL Final BASOPHILS ABS 12/27/2014 0.08 0.00 - 0.10 K/uL Final MORPHOLOGY 12/27/2014 2+ Corrected Platelet Estimate 12/27/2014 ADEQUATE Final SODIUM 12/27/2014 141 135 - 143 mmol/L Final POTASSIUM 12/27/2014 4.2 3.5 - 4.9 mmol/L Final CHLORIDE 12/27/2014 106 99 - 109 mmol/L Final CO2 12/27/2014 31 23 - 32 mmol/L Final ANION GAP AGAP 12/27/2014 9 5 - 20 mmol/L Final GLUCOSE 12/27/2014 184* 65 - 99 mg/dL Final BUN 12/27/2014 12 8 - 25 mg/dL Final CREATININE 12/27/2014 0.77 0.70 - 1.30 mg/dL Final BUN/CREAT 12/27/2014 16 Final CALCIUM 12/27/2014 8.5 8.5 - 10.5 mg/dL Final TOTAL PROTEIN 12/27/2014 7.4 6.3 - 8.2 g/dL Final Albumin 12/27/2014 3.2* 3.3 - 4.8 g/dL Final GLOBULIN 12/27/2014 4.2 1.3 - 4.9 g/dL Final A/G 12/27/2014 0.8* 1.0 - 2.4 Final TBIL 12/27/2014 0.4 0.1 - 1.5 mg/dL Final ALK PHOS 12/27/2014 136* 35 - 115 U/L Final AST 12/27/2014 19 10 - 45 U/L Final ALT 12/27/2014 24 10 - 65 U/L Final EGFR 12/27/2014 >60 >60 mL/min/1.73m2 Final CPK 12/27/2014 110 55 - 400 U/L Final INR 12/27/2014 1.0 Final APTT 12/27/2014 25 23 - 32 seconds Final MMB 12/27/2014 3.6 0.5 - 3.6 ng/mL Final CK-MB Index 12/27/2014 3.3 Final POC Troponin I 12/27/2014 0.02 Final-Edited D DIMER, QUANTITATIVE 12/27/2014 0.61* 0.19 - 0.50 mg/L FEU Final POC CARDIAC TROPONIN 12/27/2014 0.02 0.00 - 0.10 ng/mL Final POC Troponin I 12/27/2014 0.01 Final-Edited POC CARDIAC TROPONIN 12/27/2014 0.01 0.00 - 0.10 ng/mL Final ] Imaging Xr Chest Pa And Lateral 12/27/2014 HISTORY: Chest pain. COMPARISON: 12/11/14. TECHNIQUE: PA and lateral films o f the chest. FINDINGS: The heart size is normal. Lungs are clear. Mild degenerative changes of the thoracic spine. Mild right AC joint degenerative change. 12/27/2014 1. No active intrathoracic disease. X-ray Knee Limited Right 12/24/2014 NORAH GR XR KNEE LIMITED RIGHT 12/24/2014 1:24 AM History: 59 years. M susan. RIGHT knee pain. Technique: AP and lateral recumbent views. Comparison exam: None. Findings: Soft tissue swelling is visualized over the anterior aspect of the patella, sug gesting possible contusion. The patella is intact. The distal femur is negative for fractu re. Joint spaces are normal throughout the RIGHT knee. Prior screw and plate fixation of t he proximal RIGHT tibial metaphysis and diaphysis is noted, with good healing and remodeling of the tibia. The proximal fibula is intact. No visible joint effusion. Minimal vascular calcification is noted posteriorly. 12/24/2014 1. Moderate anterior prepatellar soft tissue swelling. 2. No other acute fi ndings. 3. Prior orthopedic fixation of the proximal RIGHT tibia, with good healing and rem odeling of the tibia. Ct Head Non-contrast 12/21/2014 EXAM: CT HEAD EXAM DATE: 12/21/2014 07:48 AM. CLINICAL HISTORY: Head injury. Altered mental status. COMPARISON: 12/20/2014. TECHNIQUE: Multiaxial CT images were obta ined from the foramen magnum to the vertex. IV contrast: None. Reformats: Coronal. FINDINGS : Parenchyma: No intraparenchymal hemorrhage. No evidence of mass, midline shift or CT findi ngs of infarction. Morrissey-white differentiation is distinct. Extraaxial Spaces: Normal for ag e. No subdural or epidural collections identified. Ventricles: Normal in size and position. Sinuses: Imaged paranasal sinuses, orbits, and mastoids show no significant abnormality. Bones: No evidence of fracture or calvarial defect. Other: Right frontal scalp hematoma . G lobes and orbits unremarkable. 12/21/2014 1. Increased prominence of right frontal scalp hematoma. No skull fracture. 2 . No intracranial hemorrhage. Normal appearance of brain parenchyma. 3. No acute abnormality otherwise seen. Exam otherwise as above. RADIA Electronically signed by Jose Brown MD on Dec 21 2014 8:02AM Referring Provider Line: [phone] ID: [id number] Ct Head Non-con 12/20/2014 NORAH GR Male [address] HEAD WO CONTRAST HISTORY: Head injury and head ache. TECHNIQUE: 5-mm axial noncontrast images were acquired from the foramen magnum throug h the cranial vertex. COMPARISON: 12/05/2014 FINDINGS: No acute intracranial hemorrhage, mass or infarct. Basal cisterns are patent. The ventricles and sulci are normal in size and configuration. Orbits are normal. Visualized paranasal sinuses and mastoid show no signif icant abnormality. 12/20/2014 1. No acute intracranial hemorrhage, mass or infarct. Ct Chest Pe Protocol 12/27/2014 HISTORY: Chest pain. Elevated d-dimer. COMPARISON: 01/18/14. TECHNIQUE: Axia l 0.[address] images were acquired through the chest according to a CT angiog michael protocol. Multiplanar CT angiographic MIP reconstructions were performed from the art erial phase data set. 3-D reconstructions were performed using the [employer] 3-D software a nd sent to PACS. IV contrast: 90 mL IsoVue 370 FINDINGS: There is no evidence of pulmonary embolus. No infiltrates or effusions. No hilar or mediastinal adenopathy. No evidence of aor tic dissection. Scans through the upper abdomen show clips in the gallbladder fossa, incompl etely included. Upper abdominal structures otherwise grossly unremarkable. Bone windows show mild spondylotic changes of the spine. 12/27/2014 1. No evidence of pulmonary embolus. 2. No infiltrate or congestion. 3. No evidence of aortic dissection in the chest. Electronically signed by Bhavin Gr MD on 1 02/26/2014 10:38 AM A 12-lead EKG on December 27, 2014 at 8:14 a.m. - sinus rhythm with a rate of 64 beats per minute, no acute ST or T-wave changes to suggest ischemic process. A 12-lead EKG on December 27, 2014 at 11:56 a.m. - normal sinus rhythm with a rate of 74 be ats per minute, no acute ST or T-wave changes to suggest ischemic process. Normal GA, QRS an d QTC intervals. HOSPITAL PROBLEM Principal Problem: Chest pain, rule out acute myocardial infarction Active Problems: COPD (chronic obstructive pulmonary disease) (HCC) Diabetes mellitus type II WARD (obstructive sleep apnea) Anxiety Depression Hypertension Paroxysmal atrial fibrillation (HCC) Chronic anticoagulation Subtherapeutic international normalized ratio (INR) ASSESSMENT & PLAN This is a 59-year-old male with the followin. Chest pain. The patient will undergo rule out CA protocol with serial cardiac biomarkers and serial EKGs. We will not order stress test for tomorrow as the patient had already nega tive stress test in July of 2014 and had fairly benign cardiac catheterization in 2013 - per formed by Dr. Sterling. For now, we will treat medically. Should the patient have further recu rrent chest pain, then official cardiology consultation can be requested. I added empiricall y isosorbide mononitrate to the patient's medication regimen. 2. COPD. Continue home medications. Currently appears to be compensated. 3. Type 2 diabetes mellitus. Continue glargine at 60 units subcutaneously nightly and high- dose corrective sliding scale for q. a.c. and nightly Accu-Cheks and 4 units of Lispro subcu taneously t.i.d. with meals. 4. Obstructive sleep apnea. Continue O2 supplementation, particularly during the nighttime as needed. The patient has been noncompliant with CPAP on the outpatient basis due to self r easoning including that the machine is making much noise and prevents him from sleeping. 5. Depression/anxiety. Continue home medications. 6. Hypertension, currently accelerated hypertension. This is, in part, due to the fact that the patient did not receive his morning medications, which will be given to him at the pres ent time. Continue frequent vital sign checks. We will give labetalol IV for p.r.n. systolic blood pressure above 180. 7. Atrial fibrillation. The patient is supposed to be on anticoagulation, but his INR is ju st 1.1. I would refer the patient to Anticoagulation Clinic for further management of his an ticoagulation. For now, we will continue with Coumadin 5 mg p.o. daily. 8. DVT prophylaxis. SCDs and subcutaneous heparin. 9. History of developmental delay. The patient has recently moved out from assisted living facility to an apartment to live by himself. This is per a note from a criminal justice social worker - Oleg . He has a number of social risk factors which are fall risk, nonadherence to medications, a nd also transportation issues. Based on this information, we might also reconsider whether o r not anticoagulation with Coumadin correction would pose greater risk than benefit intended. This will further be reconsidered by a.m. hospitalist. I will ask the bilingual patient support caseworker for assistance. Thus, case management consult has been placed. Disposition: observation Code Status: full code Primary Care Physician: EDIN Meadows MD 12/27/2014 4:05 PM documented in thi s encounter ED Notes Conversion Transaction, Provider Unknown - 12/27/2014 1:06 PM PSTFormatting of this note m ight be different from the original. ED Notes by Maribeth Lew RN at 12/27/14 1306 Author: Maribeth Lew RN Service: (none) Author Type: Registered Nurse Filed: 12/27/14 1306 Date of Service: 12/27/14 1306 Status: Signed Rehab Office Coordinator: Maribeth Lew RN (Registered Nurse) Report given to Joe Lew RN 12/27/14 1306 onver ivana Transaction, Provider Unknown - 12/27/2014 12:38 PM PST ED Notes by Maribeth Lew RN at 12/27/14 1238 Author: Maribeth Lew RN Service: (none) Author Type: Registered Nurse Filed: 12/27/14 1238 Date of Service: 12/27/14 1238 Status: Signed Rehab Office Coordinator: Maribeth Lew RN (Registered Nurse) Lunch tray at bedside Maribeth Lew RN 12/27/14 1238 onver ivana Transaction, Provider Unknown - 12/27/2014 12:21 PM PST ED Notes by Maribeth Lew RN at 12/27/14 1221 Author: Maribeth Lew RN Service: (none) Author Type: Registered Nurse Filed: 12/27/14 1221 Date of Service: 12/27/14 1221 Status: Signed Rehab Office Coordinator: Maribeth Lew RN (Registered Nurse) Diet lunch tray ordered Maribeth Lew RN 12/27/14 1221 onver ivana Transaction, Provider Unknown - 12/27/2014 10:15 AM PST ED Notes by Maribeth Lew RN at 12/27/141014 Author: Maribeth Lew RN Service: (none) Author Type: Registered Nurse Filed: 12/27/141014 Date of Service: 12/27/141014 Status: Signed Rehab Office Coordinator: Maribeth Lew RN (Registered Nurse) To remain NPO at this time per Dr. Umesh Lew RN 12/27/141014 onver ivana Transaction, Provider Unknown - 12/27/2014 9:49 AM PST ED Notes by Maribeth Lew RN at 12/27/14948 Author: Maribeth Lew RN Service: (none) Author Type: Registered Nurse Filed: 12/27/14948 Date of Service: 12/27/14948 Status: Signed Rehab Office Coordinator: Maribeth Lew RN (Registered Nurse) Remains in CT Maribeth Lew RN 12/27/14948 onver ivana Transaction, Provider Unknown - 12/27/2014 8:23 AM PST ED Notes by Maribeth Lew RN at 12/27/14822 Author: Maribeth Lew RN Service: (none) Author Type: Registered Nurse Filed: 12/27/14822 Date of Service: 12/27/14822 Status: Signed Rehab Office Coordinator: Maribeth Lew RN (Registered Nurse) Confirmed tele monitoring Maribeth Lew RN 12/27/14822 onver ivana Transaction, Provider Unknown - 12/27/2014 8:18 AM PST ED Notes by Maribeth Lew RN at 12/27/14817 Author: Maribeth Lew RN Service: (none) Author Type: Registered Nurse Filed: 12/27/14819 Date of Service: 12/27/14817 Status: Signed Rehab Office Coordinator: Maribeth Lew RN (Registered Nurse) Patient states he was up this am and had sharp central chest pain, he ate something and forrest t to bed, he thought it got worse then called the ambulance Maribeth Lew RN 12/27/14819 arber , Norah Gross MD - 12/27/2014 8:10 AM PSTFormatting of this note might be different from the o riginal. ED Provider Notes by Norah Calvo MD at 12/27/14809 Author: Norah Calvo MD Service: (none) Author Type: Physician Filed: 12/27/14 1241 Date of Service: 12/27/14809 Status: Signed Rehab Office Coordinator: Norah Calvo MD (Physician) [facility] Department of Emergency Medicine 8:07 AM History of Present Illness Patient Identification Norah Gr is a 59 y.o. male. Patient information was obtained from patient and EMS personnel. History/Exam limitations: none. Patient presented to the Emergency Department by: [facility] 1723 Chief Complaint Chief Complaint Patient presents with Chest Pain The patient presents to ED with complaints of chest pain. Onset of symptoms was 3 hours PT A, with an improved course since that time. The patient describes that pain as a sharp achy and heavy pain to the L side of his chest, sub sternally. The pain is non-radiating. The initial pain was 7.5/10. Per EMS, they started on IV on him en route and gave 324 mg ASA wh ich helped improve the pain to 4/10. They did not give the patient any nitro. He had eleva tasia BP and normal sinus. The patient reports similar pain in past and also reports his BP h as been elevated recently. He denies nausea, vomiting, extremity pain, and any other sympto ms. PMHx: Diabetes, hypertension, afib. He also reports getting stitches in his head last Satu rday (12/20) after a fall. PCP: EDIN GUTIÉRREZ Past Medical History Diagnosis [...] CHOLECYSTECTOMY; Surgeon: Jevon Vargas DO; Location: [facility] OR; Service: General; Laterality: N/A; Abdominal surgery Cholecystectomy Skin cancer excision 10/10/2012 Procedure: EXCISION - SKIN CANCER; Surgeon: Sy Fierro MD; Location: [facility] ; Service: Plastics; Laterality: Left; upper arm and upper back w/frozen section Esophagogastroduodenoscopy 03/03/2013 Procedure: ESOPHAGOGASTRODUODENOSCOPY; Surgeon: Howie Gibson MD; Location: [facility] ENDOSCOPY; S ervice: Gastroenterology; Laterality: N/A; Colonoscopy 03/04/2013 Procedure: COLONOSCOPY; Surgeon: Howie Gibson MD; Location: [facility] ENDOSCOPY; Service: Gastroe nterology; Laterality: N/A; Upper gastrointestinal endoscopy Skin biopsy Hernia repair 07/03/2013 Procedure: LAPAROSCOPIC - HERNIA - INCISIONAL; Surgeon: Jevon Vargas DO; Location: [facility]; Service: General; Laterality: N/A; Skin lesion excision Left 05/05/2014 Procedure: EXCISION - LESION - FROZEN SECTION; Surgeon: Sy Fierro MD; Location: [facility]; Service: Plastics; Laterality: Left; forearm [...] lungs as needed. 108 mcg/act Historical Provider Vpixh-F-Lfeesggoeglzk (BEANO) TABS Take 150 Units by mouth [...] 100 mg by mouth nightly. Historical Provider xchnlftxd-txckvhyv-rgtamklip hydroxide-simethicone Take 40 mLs by mouth daily [...] for earache CV Positive for chest pain, initially rated 7.5/10 and currently rated 4/10 Resp: Negative for wpesovxja-se-pijbmn, cough GI: Negative for abdominal pain, nausea, vomiting, or diarrhea : Negative for urinary problems Musculoskeletal: Negative for back pain, joint pain Skin: Negative for rash Neuro/Psych: Negative for headache Other systems reviewed and negative except as noted. Physical Exam BP 211/101 mmHg | Pulse 65 | Temp(Src) 97.7 F (36.5 C) (Oral) | Resp 14 | Wt 106.142 kg (234 lb) | SpO2 98% Vital signs interpretation: Hypertensive, otherwise normal Pulse [...] to ED with complaints of chest pain. The patient had an unremarkable exam. My list of differential diagnoses include acute coronary syndrome, coronary dissection, PE, musculoskeletal chest wall pain, rib contusion, vs other. Will order labs, CXR, EKG, NaCl f lush and reevaluate the patient. Per chart review, patient has had 11 visits to the [facility] ED in the last 3 months. Most rece ntly seen for fall and laceration to forehead on 12/20. He has history of afib and is curre ntly on coumadin. He was seen on 11/22 for CP. I saw the patient on 12/11/14 for chest allen n and SOB. He had cardiac catheterization in 02/2013 that showed unremarkable coronary jordan madiha . Additionally, the patient had a negative stress test in July 2014. 9:12 AM Reviewed labs: Elevated D Dimer (0.61). Will order CT Chest PE. Reviewed CXR: Normal 9:33 AM Patient reevaluation. Discussed lab findings and plan to CT chest. Patient underst ands and agrees to plan. 11:[address]: Normal. 11:52 AM The patient reports his chest pain is returning and also radiating into his L leg. His troponin has decreased to 0.01. Will order Morphine and will admit pt at this time and place a call out to the hospitalist. The patient remains moderate risk for acute coronary syndrome despite the recent negative studies. He has been seen multiple times in the depart ment for similar symptoms and sent home. I do feel is reasonable at this time with continue d chest pain to admit him for serial troponins. 12:[address] Meadows, hospitalist. Discussed patient and HPI. Dr. Meadows accept s patient. The patient was hypertensive on presentation. Differential for hypertension in the emergen cy department is extensive and not limited to pain, anxiety, established and uncontrolled hy pertension, vs other. Patient will follow up with primary care provider for ongoing concern s. Filed Vitals: 12/27/14 1043 12/27/14 1113 12/27/14 1143 12/27/14 1213 BP: 180/83 192/89 178/90 189/96 Pulse: 72 80 74 72 Temp: TempSrc: Resp: 17 17 16 Weight: SpO2: 96% 97% 98% 98% Records Reviewed Old medical records. Nursing notes. Previous [facility] ED visits for similar complaints Laboratory Evaluation Results Procedure Component Value Ref Range Date/Time POC cardiac troponin [[id number]] Collected: 12/27/14 1132 Order Status: Completed Updated: 12/27/14 1147 POC CARDIAC TROPONIN 0.01 0.00 - 0.10 ng/mL Cardiac Panel [[id number]] (Abnormal) Collected: 12/27/14 0816 Order Status: Completed Updated: 12/27/14 0910 WBC 10.63 3.80 - 11.00 K/uL RBC 5.31 4.20 - 5.70 M/uL HGB 12.8 (L) 13.2 - 17.0 g/dL HCT 40.0 39.0 - 50.0 % MCV 75.3 (L) 80.0 - 100.0 fl MCH 24.1 (L) 27.0 - 34.0 pg MCHC 32.0 32.0 - 35.5 g/dL RDW SD 43.8 37 - 53 fl PLT 291 150 - 400 K/uL MPV 7.8 fl DIFF TYPE AUTOMATED NEUTROPHILS 47.82 % LYMPHOCYTES 33.12 % MONOCYTES 11.18 % EOSINOPHILS 7.17 % BASOPHILS 0.71 % NEUTROPHILS ABS 5.08 1.90 - 7.40 K/uL LYMPHOCYTES ABS 3.52 1.00 - 3.90 K/uL MONOCYTES ABS 1.19 (H) 0.00 - 0.80 K/uL EOSINOPHILS ABS 0.76 (H) 0.00 - 0.50 K/uL BASOPHILS ABS 0.08 0.00 - 0.10 K/uL MORPHOLOGY 2+ Platelet Estimate ADEQUATE SODIUM 141 135 - 143 mmol/L POTASSIUM 4.2 3.5 - 4.9 mmol/L CHLORIDE 106 99 - 109 mmol/L CO2 31 23 - 32 mmol/L ANION GAP AGAP 9 5 - 20 mmol/L GLUCOSE 184 (H) 65 - 99 mg/dL BUN 12 8 - 25 mg/dL CREATININE 0.77 0.70 - 1.30 mg/dL BUN/CREAT 16 CALCIUM 8.5 8.5 - 10.5 mg/dL TOTAL PROTEIN 7.4 6.3 - 8.2 g/dL Albumin 3.2 (L) 3.3 - 4.8 g/dL GLOBULIN 4.2 1.3 - 4.9 g/dL A/G 0.8 (L) 1.0 - 2.4 TBIL 0.4 0.1 - 1.5 mg/dL ALK PHOS 136 (H) 35 - 115 U/L AST 19 10 - 45 U/L ALT 24 10 - 65 U/L EGFR >60 >60 mL/min/1.73m2 CPK 110 55 - 400 U/L INR 1.0 APTT 25 23 - 32 seconds MMB 3.6 0.5 - 3.6 ng/mL CK-MB Index 3.3 D Dimer,Quantitative [[id number]] (Abnormal) Collected: 12/27/14815 Order Status: Completed Updated: 12/27/14851 D DIMER, QUANTITATIVE 0.61 (H) 0.19 - 0.50 mg/L FEU POC cardiac troponin [[id number]] Collected: 12/27/14820 Order Status: Completed Updated: 12/27/1436 POC CARDIAC TROPONIN 0.02 0.00 - 0.10 ng/mL I personally reviewed the lab results and they have been posted to the chart. Pertinent po sitive and negative findings have been addressed appropriately. Radiology and EKG Evaluation Imaging Results CT Chest PE Protocol (Final result) Result time: 12/27/14 10:38:30 Final result by Rad Results In Richard (12/27/14 10:38:30) Impression: 1. No evidence of pulmonary embolus. 2. No infiltrate or congestion. 3. No evidence of aortic dissection in the chest. Narrative: HISTORY: Chest pain. Elevated d-dimer. COMPARISON: 01/18/14. TECHNIQUE: Axial 0.[address] images were acquired through the chest according to a CT a ngiography protocol. Multiplanar CT angiographic MIP reconstructions were performed from th e arterial phase data set. 3-D reconstructions were performed using the [employer] 3-D softw are and sent to PACS. IV contrast: 90 mL IsoVue 370 FINDINGS: There is no evidence of pulmonary embolus. No infiltrates or effusions. No hilar or mediast inal adenopathy. No evidence of aortic dissection. Scans through the upper abdomen show clip s in the gallbladder fossa, incompletely included. Upper abdominal structures otherwise michael sly unremarkable. Bone windows show mild spondylotic changes of the spine. XR Chest PA and Lateral (Final result) Result time: 12/27/14 08:59:40 Final result by Rad Results In Richard (12/27/14 08:59:40) Impression: 1. No active intrathoracic disease. Narrative: HISTORY: Chest pain. COMPARISON: 12/11/14. TECHNIQUE: PA and lateral films of the chest. FINDINGS: The heart size is normal. Lungs are clear. Mild degenerative changes of the thoracic spine. Mild right AC joint degenerative change. EK Normal Sinus Rhythm. Rate: 64 QRS 80 No STEMI No significant ST and T waves abnormalities EK:56 Normal Sinus Rhythm Rate: 74 QRS 76 No STEMI Unchanged from prior EKG Interpreted by me at time of service ED Diagnosis Final diagnosis Acute chest pain Disposition: ED Disposition Admit/Observation Requested Unit:: Observation > 4 hours Bed request special needs: Telemetry Diagnosis?: Acute Chest Pain Follow-up Information None Discharge Medications: New Prescriptions No new medications Dictation software, [employer], used which may contain error for similar sounding words even af ter review. Personal communication requested for any clarification. Procedures Additional Documentation Procedures Attending Note: Documentation assistance provided by Geovanna Lemons (Scribe). Information recorded by the scribe has been reviewed and validated by me. I ag ree with its contents. MD Norah Galloway MD 12/27/14 1241 onversion Transacti on, Provider Unknown - 12/27/2014 8:08 AM PSTFormatting of this note might be different fro m the original. ED Notes by Gilberto Plunkett RN at 12/27/14807 Author: Gilberto Plunkett RN Service: (none) Author Type: Registered Nurse Filed: 12/27/14807 Date of Service: 12/27/14807 Status: Signed Rehab Office Coordinator: Gilberto Plunkett RN (Registered Nurse) Bed: 09 Expected date: [...] | | | | | [address] [place] [place], | | | | | | [place] [address] | | | | | | [phone] | | | | | | | | +--------+ + + + + documented as of this encounter Procedures + +--------+ + + + | Procedure Name | Priori | Date/Time | Associated Diagnosis | Comments | | | ty | | | | + +--------+ + + + | ECG 12 LEAD | Routin | 12/28/2014 | | Results for this | | | e | 6:48 AM | | procedure are in the | | | | PST | | results section. | + +--------+ + + + | POC GLUCOSE | Routin | 12/28/2014 | | Results for this | | | e | 5:58 AM | | procedure are in the | | | | PST | | results section. | + +--------+ + + + | EXTERNAL LAB: CBC | Routin | 12/28/2014 | | Results for this | | | e | 3:42 AM | | procedure are in the | | | | PST | | results section. | + +--------+ + + + | LIPID PANEL | Routin | 12/28/2014 | | Results for this | | | e | 3:42 AM | | procedure are in the | | | | PST | | results section. | + +--------+ + + + | PHOSPHORUS | Routin | 12/28/2014 | | Results for this | | | e | 3:42 AM | | procedure are in the | | | | PST | | results section. | + +--------+ + + + | MAGNESIUM | Routin | 12/28/2014 | | Results for this | | | e | 3:42 AM | | procedure are in the | | | | PST | | results section. | + +--------+ + + + | HEMOGLOBIN A1C | Routin | 12/28/2014 | | Results for this | | | e | 3:42 AM | | procedure are in the | | | | PST | | results section. | + +--------+ + + + | COMPREHENSIVE | Routin | 12/28/2014 | | Results for this | | METABOLIC PANEL | e | 3:42 AM | | procedure are in the | | | | PST | | results section. | + +--------+ + + + | POC GLUCOSE | Routin | 12/27/2014 | | Results for this | | | e | 9:32 PM | | procedure are in the | | | | PST | | results section. | + +--------+ + + + | POC GLUCOSE | Routin | 12/27/2014 | | Results for this | | | e | 4:00 PM | | procedure are in the | | | | PST | | results section. | + +--------+ + + + | TROPONIN I | Routin | 12/27/2014 | | Results for this | | | e | 3:54 PM | | procedure are in the | | | | PST | | results section. | + +--------+ + + + | ECG 12 LEAD | Routin | 12/27/2014 | | Results for this | | | e | 11:56 AM | | procedure are in the | | | | PST | | results section. | + +--------+ + + + | CT ANGIOGRAM | Routin | 12/27/2014 | | Results for this | | PULMONARY | e | 9:48 AM | | procedure are in the | | | | PST | | results section. | + +--------+ + + + | XR CHEST 2 VIEWS | Routin | 12/27/2014 | | Results for this | | | e | 8:53 AM | | procedure are in the | | | | PST | | results section. | + +--------+ + + + | HISTORICAL LAB PANEL | Routin | 12/27/2014 | | Results for this | | RESULT | e | 8:16 AM | | procedure are in the | | | | PST | | results section. | + +--------+ + + + | D-DIMER | Routin | 12/27/2014 | | Results for this | | | e | 8:16 AM | | procedure are in the | | | | PST | | results section. | + +--------+ + + + | ECG 12 LEAD | Routin | 12/27/2014 | | Results for this | | | e | 8:14 AM | | procedure are in the | | | | PST | | results section. | + +--------+ + + + documented in this encounter Results ECG 12 lead (12/28/2014 6:48 AM PST) + + + + + + | Component | Value | Ref Range | Performed | Pathologist | | | | | At | Signature | + + + + + + | DIAGNOSIS: | Normal sinus rhythmLeft | | EXTERNAL | | | | ventricular hypertrophy | | LAB | | | | by voltage onlyRight | | | | | | bundle branch block, | | | | | | incompleteOtherwise | | | | | | normal ECGWhen compared | | | | | | with ECG of 27-DEC-2014 | | | | | | 11:56,No significant | | | | | | change was | | | | | | foundConfirmed by | | | | | | MEMO GREEN ([id number]) on | | | | | | 12/28/2014 1:32:40 PM | | | | + + + + + + + + | Specimen | + + | | + + + + + | Narrative | Performed At | + + + | Historically converted procedure from [facility] environment | EXTERNAL LAB | + + + + +---------+ + + | Performing | Address | City/State/Zipcode | Phone Number | | Organization | | | | + +---------+ + + | EXTERNAL LAB | | | | + +---------+ + + POC Glucose (12/28/2014 5:58 AM PST) + + + + + [...] | LAB | | | | [address];[place], [place] | | | | | | [address] | | | | + + + + + + + + | Specimen | + + | | + + + +---------+ + + | Performing | Address | City/State/Zipcode | Phone Number | | Organization | | | | + +---------+ + + | EXTERNAL LAB | | | | + +---------+ + + External Lab: CBC (12/28/2014 3:42 AM PST) + + + + + + | Component | Value | Ref Range | Performed | Pathologist | | | | | At | Signature | + + + + + + | WBC | 9.17Comment: Testing | 3.80 - 11.00 | EXTERNAL | | | | performed at [facility], [address] | K/uL | LAB | | | | [address], | | | | | | [place] [address] | | | | + + + + + + | Non- | 4.64Comment: Testing | 4.20 - 5.70 | EXTERNAL | | | Red Blood | performed at [facility], [address] | M/uL | LAB | | | Cells | [address], | | | | | Counted | [place] [address] | | | | + + + + + + | Hemoglobin | 11.9 (L)Comment: Testing | 13.2 - 17.0 | EXTERNAL | | | | performed at [facility], [address] | g/dL | LAB | | | | [address], | | | | | | [place] [address] | | | | + + + + + + | Hematocrit, | 36.0 (L)Comment: Testing | 39.0 - 50.0 % | EXTERNAL | | | POC | performed at [facility], [address] | | LAB | | | | [address], | | | | | | [place] [address] | | | | + + + + + + | MCV | 77.5 (L)Comment: Testing | 80.0 - 100.0 fl | EXTERNAL | | | | performed at [facility], [address] | | LAB | | | | [address], | | | | | | [place] [address] | | | | + + + + + + | MCH | 25.6 (L)Comment: Testing | 27.0 - 34.0 pg | EXTERNAL | | | | performed at [facility], [address] | | LAB | | | | [address], | | | | | | [place] [address] | | | | + + + + + + | MCHC | 33.1Comment: Testing | 32.0 - 35.5 | EXTERNAL | | | | performed at [facility], [address] | g/dL | LAB | | | | [address], | | | | | | [place] [address] | | | | + + + + + + | RDW-CV | 45.1Comment: Testing | 37 - 53 fl | EXTERNAL | | | | performed at [facility], [address] | | LAB | | | | [address], | | | | | | [place] [address] | | | | + + + + + + | Platelet | 85 (L)Comment: Testing | 150 - 400 K/uL | EXTERNAL | | | Count | performed at [facility], [address] | | LAB | | | Plasma | [address], | | | | | | [place] [address] | | | | + + + + + + | MPV | 8.1Comment: Testing | fl | EXTERNAL | | | | performed at [facility], [address] | | LAB | | | | [address], | | | | | | [place] [address] | | | | + + + + + + | Differentia | AUTOMATEDComment: | | EXTERNAL | | | l Type | Testing performed at | | LAB | | | | [facility], [address] | | | | | | [place] | | | | | | [address] | | | | + + + + + + | % Segmented | 54.99Comment: Testing | % | EXTERNAL | | | | performed at [facility], [address] | | LAB | | | Neutrophils | [address], | | | | | | [place] [address] | | | | + + + + + + | % | 29.03Comment: Testing | % | EXTERNAL | | | Lymphocytes | performed at [facility], [address] | | LAB | | | | [address], | | | | | | [place] [address] | | | | + + + + + + | % Monocytes | 8.39Comment: Testing | % | EXTERNAL | | | | performed at [facility], [address] | | LAB | | | | [address], | | | | | | [place] [address] | | | | + + + + + + | % | 6.66Comment: Testing | % | EXTERNAL | | | Eosinophils | performed at [facility], [address] | | LAB | | | | [address], | | | | | | [place] [address] | | | | + + + + + + | % Basophils | 0.93Comment: Testing | % | EXTERNAL | | | | performed at [facility], [address] | | LAB | | | | [address], | | | | | | [place] [address] | | | | + + + + + + | Absolute | 5.04Comment: Testing | 1.90 - 7.40 | EXTERNAL | | | Segmented | performed at [facility], [address] | K/uL | LAB | | | Neutrophils | [address], | | | | | | [place] [address] | | | | + + + + + + | Absolute | 2.66Comment: Testing | 1.00 - 3.90 | EXTERNAL | | | Lymphocytes | performed at [facility], [address] | K/uL | LAB | | | | [address], | | | | | | [place] [address] | | | | + + + + + + | Absolute | 0.77Comment: Testing | 0.00 - 0.80 | EXTERNAL | | | Monocytes | performed at [facility], [address] | K/uL | LAB | | | | [address], | | | | | | [place] [address] | | | | + + + + + + | Absolute | 0.61 (H)Comment: Testing | 0.00 - 0.50 | EXTERNAL | | | Eosinophils | performed at [facility], [address] | K/uL | LAB | | | | [address], | | | | | | [place] [address] | | | | + + + + + + | Absolute | 0.09Comment: Testing | 0.00 - 0.10 | EXTERNAL | | | Basophils | performed at [facility], [address] | K/uL | LAB | | | | [address], | | | | | | [place] [address] | | | | + + + + + + + + | Specimen | + + | Blood specimen | | (specimen) | + + + +---------+ + + | Performing | Address | City/State/Zipcode | Phone Number | | Organization | | | | + +---------+ + + | EXTERNAL LAB | | | | + +---------+ + + Phosphorus (12/28/2014 3:42 AM PST) + + + + + + | Component | Value | Ref Range | Performed | Pathologist | | | | | At | Signature | + + + + + + | PHOSPHORUS | 4.3Comment: Testing | 2.3 - 4.8 mg/dL | EXTERNAL | | | | performed at [facility], [address] | | LAB | | | | [address], | | | | | | [place] [address] | | | | + + + + + + + + | Specimen | + + | Blood specimen | | (specimen) | + + + +---------+ + + | Performing | Address | City/State/Zipcode | Phone Number | | Organization | | | | + +---------+ + + | EXTERNAL LAB | | | | + +---------+ + + Magnesium (12/28/2014 3:42 AM PST) + + + + + + | Component | Value | Ref Range | Performed | Pathologist | | | | | At | Signature | + + + + + + | Magnesium | 1.9Comment: Testing | 1.7 - 2.4 mg/dL | EXTERNAL | | | | performed at [facility], [address] | | LAB | | | | [address], | | | | | | [place] [address] | | | | + + + + + + + + | Specimen | + + | Blood specimen | | (specimen) | + + + +---------+ + + | Performing | Address | City/State/Zipcode | Phone Number | | Organization | | | | + +---------+ + + | EXTERNAL LAB | | | | + +---------+ + + Hemoglobin A1C (12/28/2014 3:42 AM PST) + + + + + + | Component | Value | Ref Range | Performed | Pathologist | | | | | At | Signature | + + + + + + | Hemoglobin | 7.5 (H)Comment: The | 4.0 - 6.0 % | EXTERNAL | | | A1c | [facility] | | LAB | | | [...] | | | | | performed at [facility], [address] | | | | | | [address] [facility], | | | | | | [place] [address] | | | | + + + + + + | Glycohemogl | 169Comment: The ADA | mg/dL | EXTERNAL | [...] | | | | | performed at [facility], [address] | | | | | | [facility], | | | | | | [place] [address] | | | | + + + + + + + + | Specimen | + + | Blood specimen | | (specimen) | + + + +---------+ + + | Performing | Address | City/State/Zipcode | Phone Number | | Organization | | | | + +---------+ + + | EXTERNAL LAB | | | | + +---------+ + + Lipid Panel (12/28/2014 3:42 AM PST) + + + + + + | Component | Value | Ref Range | Performed | Pathologist | | | | | At | Signature | + + + + + + | Cholesterol | 151Comment: Testing | mg/dL | EXTERNAL | | | | performed at [facility], [address] | | LAB | | | | [address] | | | | | | [place] [address] | | | | + + + + + + | Triglycerid | 823 (H)Comment: Testing | mg/dL | EXTERNAL | | | es | performed at [facility], [address] | | LAB | | | | [address], | | | | | | [place] [address] | | | | + + + + + + | HDL | 19 (L)Comment: Testing | mg/dL | EXTERNAL | | | | performed at [facility], [address] | | LAB | | | | [address], | | | | | | [place] [address] | | | | + + + + + + | LDL, | LDL NOT VALID WHEN TRIG | mg/dL | EXTERNAL | | | Calculated | >400 mg/dLComment: | | LAB | | | | Testing performed at | | | | | | [facility], [address] | | | | | | [place] | | | | | | [address] | | | | + + + [...] + +---------+ + + Comprehensive Metabolic Panel (12/28/2014 3:42 AM PST) + + + + + [...] | | | | | [place] [address] | | | | + + + + + + | K | 4.1Comment: Testing | 3.5 - 4.9 | EXTERNAL | | | | performed at [facility], [address] | mmol/L | LAB | | | | [address], | | | | | | [place] [address] | | | | + + + + + + | Cl | 104Comment: Testing | 99 - 109 mmol/L | EXTERNAL | | | | performed at [facility], [address] | | LAB | | | | [address], | | | | | | [place] [address] | | | | + + + + + + | CO2 | 26Comment: Testing | 23 - 32 mmol/L | EXTERNAL | | | | performed at [facility], [address] | | LAB | | | | [address], | | | | | | [place] [address] | | | | + + + + + + | Anion Gap | 10Comment: Testing | 5 - 20 mmol/L | EXTERNAL | | | | performed at [facility], [address] | | LAB | | | | [address], | | | | | | [place] [address] | | | | + + + + + + | Glucose, | 250 (H)Comment: Testing | 65 - 99 mg/dL | EXTERNAL | | | Fasting | performed at [facility], [address] | | LAB | | | | [address], | | | | | | [place] [address] | | | | + + + + + + | BUN | 17Comment: Testing | 8 - 25 mg/dL | EXTERNAL | | | | performed at [facility], [address] | | LAB | | | | [address], | | | | | | [place] [address] | | | | + + + + + + | Creatinine | 0.86Comment: Testing | 0.70 - 1.30 | EXTERNAL | | | | performed at [facility], [address] | mg/dL | LAB | | | | [address], | | | | | | [place] [address] | | | | + + + + + + | BUN/Creatin | 20Comment: Testing | | EXTERNAL | | | ine Ratio | performed at [facility], [address] | | LAB | | | | [address], | | | | | | [place] [address] | | | | + + + + + + | Calcium | 8.9Comment: Testing | 8.5 - 10.5 | EXTERNAL | | | | performed at [facility], [address] | mg/dL | LAB | | | | [address], | | | | | | [place] [address] | | | | + + + + + + | Protein, | 6.0 (L)Comment: Testing | 6.3 - 8.2 g/dL | EXTERNAL | | | Total | performed at [facility], [address] | | LAB | | | [address], | | | | | | [place] [address] | | | | + + + + + + | Albumin | 3.1 (L)Comment: Testing | 3.3 - 4.8 g/dL | EXTERNAL | | | | performed at [facility], [address] | | LAB | | | | [address], | | | | | | [place] [address] | | | | + + + + + + | Globulin | 2.9Comment: Testing | 1.3 - 4.9 g/dL | EXTERNAL | | | | performed at [facility], [address] | | LAB | | | [address], | | | | | | [place] [address] | | | | + + + + + + | A/G Ratio | 1.1Comment: Testing | 1.0 - 2.4 | EXTERNAL | | | | performed at [facility], [address] | | LAB | | | | [address], | | | | | | [place] [address] | | | | + + + + + + | Bilirubin | 0.3Comment: Testing | 0.1 - 1.5 mg/dL | EXTERNAL | | | Total | performed at [facility], [address] | | LAB | | | | [address], | | | | | | [place] [address] | | | | + + + + + + | ALP, | 91Comment: Testing | 35 - 115 U/L | EXTERNAL | | | External | performed at [facility], [address] | | LAB | | | | [address], | | | | | | [place] [address] | | | | + + + + + + | AST | 19Comment: Testing | 10 - 45 U/L | EXTERNAL | | | | performed at [facility], [address] | | LAB | | | | [address], | | | | | | [place] [address] | | | | + + + + + + | ALT | 13Comment: Testing | 10 - 65 U/L | EXTERNAL | | | | performed at [facility], [address] | | LAB | | | | [employer], | | | | | | [place] [address] | | | | + + + [...] W | | | | | | [address], | | | | | | [place] [address] | | | | + + + + + + + + | Specimen | + + | Blood specimen | | (specimen) | + + + +---------+ + + | Performing | Address | City/State/Zipcode | Phone Number | | Organization | | | | + +---------+ + + | EXTERNAL LAB | | | | + +---------+ + + POC Glucose (12/27/2014 9:32 PM PST) + + + + + + | Component | Value | Ref Range | Performed | Pathologist | | | | | At | Signature | + + + + + + | Glucose, | 164 (H)Comment: Testing | 65 - 99 mg/dL | EXTERNAL | | | Fingerstick | performed at [facility];[address] | | LAB | | | | [address];[place] | | | | | | [address] | | | | + + + + + + + + | Specimen | + + | | + + + +---------+ + + | Performing | Address | City/State/Zipcode | Phone Number | | Organization | | | | + +---------+ + + | EXTERNAL LAB | | | | + +---------+ + + POC Glucose (12/27/2014 4:00 PM PST) + + + + + [...] | LAB | | | | [address];[place] | | | | | | [address] | | | | + + + + + + + + | Specimen | + + | | + + + +---------+ + + | Performing | Address | City/State/Zipcode | Phone Number | | Organization | | | | + +---------+ + + | EXTERNAL LAB | | | | + +---------+ + + Troponin I (12/27/2014 3:54 PM PST) + + + + + [...] | | | | | | [address] [facility];[place], [place] | | | | | | [address] | | | | + + + [...] + +---------+ + + ECG 12 lead (12/27/2014 11:56 AM PST) + + + + + [...] of | | | | | | 11-DEC-2014 03:23,No | | | | | | significant [...] (500), | | | | | | 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 No evidence of pulmonary embolus. 2. No infiltrate or | | | congestion. 3. No evidence of aortic dissection in the chest. | | | | | + + + + + + | Narrative | Performed At | + + + | HISTORY: Chest pain. Elevated d-dimer. COMPARISON: 01/18/14. | | | TECHNIQUE: Axial 0.[address] images were acquired | | | through the chest according to a CT angiography protocol. | | | Multiplanar CT angiographic MIP reconstructions were performed from | | | the arterial phase data set. 3-D reconstructions were performed | | | using the [employer] 3-D software and sent to PACS. IV contrast: 90 | | | mL IsoVue 370 FINDINGS: There is no evidence of pulmonary | | | embolus. No infiltrates or effusions. No hilar or mediastinal | | | adenopathy. No evidence of aortic dissection. Scans through the upper | | | abdomen show clips in the gallbladder fossa, incompletely included. | | | Upper abdominal structures otherwise grossly unremarkable. Bone | | | windows show mild spondylotic changes of the spine. | | + + + + + | Procedure Note | + + | Joaquin Ramos Conversion - 09/20/2018 10:29 PM PDT HISTORY:Chest pain. Elevated d-dimer. | | COMPARISON:01/18/14. TECHNIQUE:Axial 0.[address] images were acquired | | through the chest according to a CT angiography protocol. Multiplanar CT angiographic | | MIP reconstructions were performed from the arterial phase data set. 3-D | | reconstructions were performed using the [employer] 3-D software and sent to PACS.IV | | contrast: 90 mL IsoVue 370 FINDINGS:There is no evidence of pulmonary embolus. No | | infiltrates or effusions. No hilar or mediastinal adenopathy. No evidence of aortic | | dissection. Scans through the upper abdomen show clips in the gallbladder fossa, | | incompletely included. Upper abdominal structures otherwise grossly unremarkable. Bone | | windows show mild spondylotic changes of the spine. IMPRESSION: 1. No evidence of | | pulmonary embolus.2. No infiltrate or congestion.3. No evidence of aortic dissection | | in the chest. | |There is no evidence of pulmonary embolus. No infiltrates or effusions. No hilar or mediast inal adenopathy. No evidence of aortic dissection. Scans through the upper abdomen show clip s in the gallbladder fossa, incompletely included. Upper abdominal | |structures otherwise grossly unremarkable. Bone windows show mild spondylotic changes of th e spine. | | | |IMPRESSION: | |1. No evidence of pulmonary embolus. | |2. No infiltrate or congestion. | |3. No evidence of aortic dissection in the chest. | | | | | + + XR Chest 2 Vws (12/27/2014 8:53 AM PST) + + | Specimen | + + | | + + + + + | Impressions | Performed At | + + + | 1. No active intrathoracic disease. | | + + + + + + | Narrative | Performed At | + + + | HISTORY: Chest pain. COMPARISON: 12/11/14. TECHNIQUE: PA | | | and lateral films of the chest. FINDINGS: The heart size is | | | normal. Lungs are clear. Mild degenerative changes of the thoracic | | | spine. Mild right AC joint degenerative change. | | + + + + + | Procedure Note | + + | Richard, Rad Conversion - 09/20/2018 10:29 PM PDT HISTORY:Chest pain. | | COMPARISON:12/11/14. TECHNIQUE:PA and lateral films of the chest. FINDINGS:The heart | | size is normal. Lungs are clear. Mild degenerative changes of the thoracic spine. Mild | | right AC joint degenerative change. IMPRESSION: 1. No active intrathoracic disease. | | | | | |TECHNIQUE: | |PA and lateral films of the chest. | | | |FINDINGS: | |The heart size is normal. Lungs are clear. Mild degenerative changes of the thoracic spine. Mild right AC joint degenerative change. | | | |IMPRESSION: | |1. No active intrathoracic disease. | | | | | + + HISTORICAL LAB PANEL RESULT (12/27/2014 8:16 AM PST) + + + + + -+ | Component | Value | Ref Range | Performed | Pathologist | | | | | At | Signature | + + + + + -+ | WBC | 10.63Comment: Testing | 3.80 - 11.00 | EXTERNAL | | | | performed at [facility];[address] | K/uL | LAB | | | | [address];[place] | | | | | | [address] | | | | + + + + + -+ | Non- | 5.31Comment: Testing | 4.20 - 5.70 | EXTERNAL | | | Red Blood | performed at [facility];[address] | M/uL | LAB | | | Cells | [address];[place] | | | | | Counted | [address] | | | | + + + + + -+ | Hemoglobin | 12.8 (L)Comment: Testing | 13.2 - 17.0 | EXTERNAL | | | | performed at [facility];[address] | g/dL | LAB | | | | [address];[place] | | | | | | [address] | | | | + + + + + -+ | Hematocrit, | 40.0Comment: Testing | 39.0 - 50.0 % | EXTERNAL | | | POC | performed at [facility];[address] | | LAB | | | | [address];[place] | | | | | | [address] | | | | + + + + + -+ | MCV | 75.3 (L)Comment: Testing | 80.0 - 100.0 fl | EXTERNAL | | | | performed at [facility];[address] | | LAB | | | | [address];[place] | | | | | | [address] | | | | + + + + + -+ | MCH | 24.1 (L)Comment: Testing | 27.0 - 34.0 pg | EXTERNAL | | | | performed at [facility];[address] | | LAB | | | | [address];[place] | | | | | | [address] | | | | + + + + + -+ | MCHC | 32.0Comment: Testing | 32.0 - 35.5 | EXTERNAL | | | | performed at [facility];[address] | g/dL | LAB | | | | [address];[place] | | | | | | [address] | | | | + + + + + -+ | RDW-CV | 43.8Comment: Testing | 37 - 53 fl | EXTERNAL | | | | performed at [facility];[address] | | LAB | | | | [address];[place] | | | | | | [address] | | | | + + + + + -+ | Platelet | 291Comment: Testing | 150 - 400 K/uL | [...] [place] | | | | | | [address] | | | | + + + + + -+ | Differentia | AUTOMATEDComment: | | EXTERNAL | | | l Type | Testing performed at | | LAB | | | | [facility];[address];[place] [address] | | | | + + + + + -+ | % Segmented | 47.82Comment: Testing | % | EXTERNAL | | | | performed at [facility];[address] | | LAB | | | Neutrophils | [address];[place] | | | | | | [address] | | | | + + + + + -+ | % | 33.12Comment: Testing | % | EXTERNAL | | | Lymphocytes | performed at [facility];[address] | | LAB | | | | [address];[place] | | | | | | [address] | | | | + + + + + -+ | % Monocytes | 11.18Comment: Testing | % | EXTERNAL | | | | performed at [facility];[address] | | LAB | | | | [address];[place] | | | | | | [address] | | | | + + + + + -+ | % | 7.17Comment: Testing | % | EXTERNAL | | | Eosinophils | performed at [facility];[address] | | LAB | | | | [address];[place] | | | | | | [address] | | | | + + + + + -+ | % Basophils | 0.71Comment: Testing | % | EXTERNAL | | | | performed at [facility];[address] | | LAB | | | | [address];[place] | | | | | | [address] | | | | + + + + + -+ | Absolute | 5.08Comment: Testing | 1.90 - 7.40 | EXTERNAL | | | Segmented | performed at [facility];[address] | K/uL | LAB | | | Neutrophils | [address];[place] | | | | | | [address] | | | | + + + + + -+ | Absolute | 3.52Comment: Testing | 1.00 - 3.90 | EXTERNAL | | | Lymphocytes | performed at [facility];[address] | K/uL | LAB | | | | [address];[place] | | | | | | [address] | | | | + + + + + -+ | Absolute | 1.19 (H)Comment: Testing | 0.00 - 0.80 | EXTERNAL | | | Monocytes | performed at [facility];[address] | K/uL | LAB | | | | [address];[place] | | | | | | [address] | | | | + + + + + -+ | Absolute | 0.76 (H)Comment: Testing | 0.00 - 0.50 | EXTERNAL | | | Eosinophils | performed at [facility];[address] | K/uL | LAB | | | | [address];[place] | | | | | | [address] | | | | + + + + + -+ | Absolute | 0.08Comment: Testing | 0.00 - 0.10 | EXTERNAL | | | Basophils | performed at [facility];[address] | K/uL | LAB | | | | [address];[place] | | | | | | [address] | | | | + + + + + -+ | RBC | 2+Comment: MICRONORMAL | | EXTERNAL | | | Morphology | PLT MORPHTesting | | LAB | | | | performed at [facility];[address] | | | | | | [address];[place] | | | | | | [address] | | | | | | | | | | + + + + + -+ | Platelet | ADEQUATEComment: Testing | | EXTERNAL | | | Estimate | performed at [facility];[address] | | LAB | | | | [address];[place] | | | | | | [address] | | | | + + + + + -+ | Na | 141Comment: Testing | 135 - 143 | EXTERNAL | | | | performed at [facility];[address] | mmol/L | LAB | | | | [address];[place] | | | | | | [address] | | | | + + + + + -+ | K | 4.2Comment: Testing | 3.5 - 4.9 | EXTERNAL | | | | performed at [facility];[address] | mmol/L | LAB | | | | [address];[place] | | | | | | [address] | | | | + + + + + -+ | Cl | 106Comment: Testing | 99 - 109 mmol/L | EXTERNAL | | | | performed at [facility];[address] | | LAB | | | | [address];[place] | | | | | | [address] | | | | + + + + + -+ | CO2 | 31Comment: Testing | 23 - 32 mmol/L | EXTERNAL | | | | performed at [facility];[address] | | LAB | | | | [address];[place] | | | | | | [address] | | | | + + + + + -+ | Anion Gap | 9Comment: Testing | 5 - 20 mmol/L | EXTERNAL | | | | performed at [facility];[address] | | LAB | | | | [address];[place] | | | | | | [address] | | | | + + + + + -+ | Glucose, | 184 (H)Comment: Testing | 65 - 99 mg/dL | EXTERNAL | | | Fasting | performed at [facility];[address] | | LAB | | | | [address];[place] | | | | | | [address] | | | | + + + + + -+ | BUN | 12Comment: Testing | 8 - 25 mg/dL | EXTERNAL | | | | performed at [facility] [place];[address] | | LAB | | | | [address];[place] | | | | | | [address] | | | | + + + + + -+ | Creatinine | 0.77Comment: Testing | 0.70 - 1.30 | EXTERNAL | | | | performed at [facility] [place];888 | mg/dL | LAB | | | | [address];[place] | | | | | | [address] | | | | + + + + + -+ | BUN/Creatin | 16Comment: Testing | | EXTERNAL | | | ine Ratio | performed at [facility] [place];[address] | | LAB | | | | [address];[place] | | | | | | [address] | | | | + + + + + -+ | Calcium | 8.5Comment: Testing | 8.5 - 10.5 | EXTERNAL | | | | performed at [facility] [place];888 | mg/dL | LAB | | | | [address];[place] | | | | | | [address] | | | | + + + + + -+ | Protein, | 7.4Comment: Testing | 6.3 - 8.2 g/dL | EXTERNAL | | | Total | performed at [facility] [place];[address] | | LAB | | | | [address];[place] | | | | | | [address] | | | | + + + + + -+ | Albumin | 3.2 (L)Comment: Testing | 3.3 - 4.8 g/dL | EXTERNAL | | | | performed at [facility] [place];[address] | | LAB | | | | [address];[place] | | | | | | [address] | | | | + + + + + -+ | Globulin | 4.2Comment: Testing | 1.3 - 4.9 g/dL | EXTERNAL | | | | performed at [facility] [place];[address] | | LAB | | | | [address];[place] | | | | | | [address] | | | | + + + + + -+ | A/G Ratio | 0.8 (L)Comment: Testing | 1.0 - 2.4 | EXTERNAL | | | | performed at [facility] [place];[address] | | LAB | | | | [address];[place] | | | | | | [address] | | | | + + + + + -+ | Bilirubin | 0.4Comment: Testing | 0.1 - 1.5 mg/dL | EXTERNAL | | | Total | performed at [facility] [place];[address] | | LAB | | | | [address];[place] | | | | | | [address] | | | | + + + + + -+ | ALP, | 136 (H)Comment: Testing | 35 - 115 U/L | EXTERNAL | | | External | performed at [facility];[address] | | LAB | | | | [address];[place] | | | | | | [address] | | | | + + + + + -+ | AST | 19Comment: Testing | 10 - 45 U/L | EXTERNAL | | | | performed at [facility];[address] | | LAB | | | | [address];[place] | | | | | | [address] | | | | + + + + + -+ | ALT | 24Comment: Testing | 10 - 65 U/L | EXTERNAL | | | | performed at [facility];[address] | | LAB | | | | [address];[place] | | | | | | [address] | | | | + + + [...] | | | | | Blvd;[place] [address] | | | | + + + + + -+ | CK, Total | 110Comment: Testing | 55 - 400 U/L | EXTERNAL | | | | performed at [facility];[address] | | LAB | | | | [address];[place] | | | | | | [address] | | | | + + + [...] [place] | | | | | | [address] | | | | + + + + + -+ | aPTT, | 25Comment: Testing | 23 - 32 seconds | EXTERNAL | | | Patient | performed at [facility];[address] | | LAB | | | | [address];[place] | | | | | | [address] | | | | + + + + + -+ | CK-MB | 3.6Comment: Testing | 0.5 - 3.6 ng/mL | EXTERNAL | | | | performed at [facility];[address] | | LAB | | | | [address];[place] | | | | | | [address] | | | | + + + [...] | | + +---------+ + + D-Dimer (12/27/2014 8:16 AM PST) + + + + + + | Component | Value | Ref Range | Performed | Pathologist | | | | | At | Signature | + + + + + + | D-DIMER, | 0.61 (H)Comment: D Dimer | 0.19 - 0.50 [...] | | | | | | [address];[place], [place] | | | | | | [address] | | | | + + + + + + + + | Specimen | + + | | + + + +---------+ + + | Performing | Address | City/State/Zipcode | Phone Number | | Organization | | | | + +---------+ + + | EXTERNAL LAB | | | | + +---------+ + + ECG 12 lead (12/27/2014 8:14 AM PST) + + + + + [...] of | | | | | | 11-DEC-2014 03:23,No | | | | | | significant [...] (500), | | | | | | book or script editor Keyla Gregory | | | | | | (25) on 12/27/2014 | | | | | | 4:16:55 PM | | | | + + + + + + + + | Specimen | + + | | + + + + + | Narrative | Performed At | + + + | Historically converted procedure from [facility] Epic environment | EXTERNAL LAB | + + + + +---------+ + + | Performing | Address | City/State/Zipcode | Phone Number | | Organization | | | | + +---------+ + + | EXTERNAL LAB | | | | + +---------+ + + documented in this encounter Visit Diagnoses + + | Diagnosis | + + | Acute chest pain Chest pain, unspecified | + + documented in this encounter
--- OUTSIDE RECORDS SUMMARY | ~2019-10-12 | XMS | Encounter Summary ---
Demographics + + + | Address | [address] | | | [place] [address] | + + + | Home Phone [...] + | Sammi Kohler | ECON | [place] [address] | | + + + + + Care Team Providers + +------+ + | Care Embedded Systems Engineer Name | Role | Phone | + +------+ + PCP | Unavailable | + +------+ + Encounter Details +--------+ + + + + | Date | Type | Department | Care Team | Description | +--------+ + + + + | 04/09/ | Emergency | [facility] | Gurvinder Cruz, | Clarissa | | 2014 - | | [facility] | MD [address] | | | | | EMERGENCY CENTER | [place], [place] | | | 04/10/ | | [address] | [address] | | | 2013 | | [place], [place] | [phone] | | | | | [address] | | | | | | [phone] | | | +--------+ + + + [...] original. Case Management by QUINN White at 04/09/132034 Author: QUINN White Service: (none) Author Type: Neonatal Specialist Filed: 04/09/132034 Date of Service: 04/09/132034 Status: Signed Animal Daycare Provider: QUINN White (Neonatal Specialist) COLTON alert Rcvd pt with a total [...] 04/10/13504 Date of Service: 04/09/132040 Status: Signed Animal Daycare Provider: Gurvinder Cruz MD (Physician) [facility] Department of Emergency Medicine 8:41 PM [...] - CHOLECYSTECTOMY; Surgeon: Jevon Vargas DO; Location: [facility]; Service: General; Laterality: N/A; Abdominal surgery Cholecystectomy Skin cancer excision 10/10/2012 Procedure: EXCISION - SKIN CANCER; Surgeon: Sy Fierro MD; Location: [facility] ; Service: Plastics; Laterality: Left; upper arm and upper back w/frozen section Esophagogastroduodenoscopy 03/03/2013 Procedure: ESOPHAGOGASTRODUODENOSCOPY; Surgeon: Howie Gibson MD; Location: [facility]; S ervice: Gastroenterology; Laterality: N/A; Colonoscopy 03/04/2013 Procedure: COLONOSCOPY; Surgeon: Howie Gibson MD; Location: [facility]; Service: Gastroe nterology; Laterality: N/A; [...] Positive for hypertension Negative for chest pain, ucuhugrrs-rh-nvijde, cough GI: Positive for abdominal pain Negative [...] Oral Given Renetta Goode RN Filed Vitals: 04/09/13201104/09/13 2229 04/10/13 0003 04/10/13 0101 BP: 118/67 180/85 180/85 167/72 Pulse: 60 65 64 62 Temp: 98.1 F (36.7 C) TempSrc: Oral Resp: 20 20 16 16 SpO2: 94% 94% 93% 95% Records Reviewed Old medical records. Nursing notes. Nursing notes. Nursing notes reviewed for chief complaint, medications, clinical presentati on and vital signs. Old ED records reviewed (Using the electronic record system of [facility] reviewed the records with regard to the past medical/surgical history, previous medic ations, and allergies). Laboratory Evaluation Results Procedure Component Value Ref Range Date/Time Complete Metabolic Panel [[id number]] (Abnormal) Collected:04/09/132014 Order Status:Completed Updated:04/09/132244 Specimen Information:Blood [...] >60 >60 mL/min/1.73m2 CBC w Auto Diff [[id number]] (Abnormal) Collected:04/09/132014 Order Status:Completed Updated:04/09/139 Specimen Information:Blood [...] Comments Contact Info [facility]ALY Kent [facility] [address] [facility] [phone] [facility] Emergency Department If symptoms worsen [address] [facility] [address] Discharge Medications: New Prescriptions MECLIZINE (ANTIVERT) 25 [...] 04/09/132010 Date of Service: 04/09/132010 Status: Signed Animal Daycare Provider: Renetta Goode RN (Registered Nurse) Bed:[facility]
Expected date:
Expected time:
Means of arrival:
Comments:
EMS docume nted in this encounter Plan of Treatment +--------+ + + + + | Date | Type | Specialty | Care Team | Description | +--------+ + + + + | 10/16/ | Anti-coag | Anticoagulation | Brittany Zaragoza | | | 2020 | visit | | [address] | | | | | | [facility], | | | | | | [place] [id number] | | | | | | [phone] | | | | | | | | +--------+ + + + + documented as of this encounter Procedures + +--------+ + + + | Procedure Name | Priori | Date/Time | Associated Diagnosis | Comments | | | ty | | | | + +--------+ + + + | EXTERNAL LAB: [facility] | Routin | 04/09/2013 | | Results [...] in this encounter Results External Lab: [facility] (04/09/2013 8:15 PM PST) + + + + + + | Component | Value | Ref Range | Performed | Pathologist | | | | | At | Signature | + + + + + + | WBC | 10.6Comment: Testing | 3.8 - 11.0 K/uL | EXTERNAL | | | | performed at [facility];[address] | | LAB | | | | [address];[place] | | | | | | [address] | | | | + + + + + + | Non- | 4.96Comment: Testing | 4.20 - 5.70 | EXTERNAL | | | Red Blood | performed at [facility];[address] | M/uL | LAB | | | Cells | [address];[place] | | | | | Counted | [address] | | | | + + + + + + | Hemoglobin | 13.8Comment: Testing | 13.2 - 17.0 | EXTERNAL | | | | performed at [facility];[address] | g/dL | LAB | | | | [address];[place] | | | | | | [address] | | | | + + + + + + | Hematocrit, | 41.7Comment: Testing | 39.0 - 50.0 % | EXTERNAL | | | POC | performed at [facility];[address] | | LAB | | | | [address];[place] | | | | | | [address] | | | | + + + + + + | MCV | 84.0Comment: Testing | 80.0 - 100.0 fl | EXTERNAL | | | | performed at [facility];[address] | | LAB | | | | [address];[place] | | | | | | [address] | | | | + + + + + + | MCH | 27.7Comment: Testing | 27.0 - 34.0 pg | EXTERNAL | | | | performed at [facility];[address] | | LAB | | | | [address];[place] | | | | | | [address] | | | | + + + + + + | MCHC | 33.0Comment: Testing | 32.0 - 35.5 | EXTERNAL | | | | performed at [facility];888 | g/dL | LAB | | | | [address];[place] | | | | | | [address] | | | | + + + + + + | RDW-CV | 42.9Comment: Testing | 37 - 53 fl | EXTERNAL | | | | performed at [facility];[address] | | LAB | | | | [address];[place] | | | | | | [address] | | | | + + + + + + | Platelet | 253Comment: Testing | 150 - 400 K/uL | EXTERNAL | | | Count | performed at [facility];[address] | | LAB | | | Plasma | [address];[place] | | | | | | [address] | | | | + + + + + + | MPV | 7.8Comment: Testing | fl | EXTERNAL | | | | performed at [facility];[address] | | LAB | | | | [address];[place] | | | | | | [address] | | | | + + + + + + | Differentia | AUTOMATEDComment: | | EXTERNAL | | | l Type | Testing performed at | | LAB | | | | [facility];[address];[place] [address] | | | | + + + + + + | % Segmented | 66.6Comment: Testing | % | EXTERNAL | | | | performed at [facility];[address] | | LAB | | | Neutrophils | [address];[place] | | | | | | [address] | | | | + + + + + + | % | 20.2Comment: Testing | % | EXTERNAL | | | Lymphocytes | performed at [facility];[address] | | LAB | | | | [address];[place] | | | | | | [address] | | | | + + + + + + | % Monocytes | 10.6Comment: Testing | % | EXTERNAL | | | | performed at [facility];[address] | | LAB | | | | [address];[place] | | | | | | [address] | | | | + + + + + + | % | 2.2Comment: Testing | % | EXTERNAL | | | Eosinophils | performed at [facility];[address] | | LAB | | | | [address];[place] | | | | | | [address] | | | | + + + + + + | % Basophils | 0.4Comment: Testing | % | EXTERNAL | | | | performed at [facility];[address] | | LAB | | | | [address];[place] | | | | | | [address] | | | | + + + + + + | Absolute | 7.1Comment: Testing | 1.9 - 7.4 K/uL | EXTERNAL | | | Segmented | performed at [facility];[address] | | LAB | | | Neutrophils | [address];[place] | | | | | | [address] | | | | + + + + + + | Absolute | 2.1Comment: Testing | 1.0 - 3.9 K/uL | EXTERNAL | | | Lymphocytes | performed at [facility];[address] | | LAB | | | | [address];[place] | | | | | | [address] | | | | + + + + + + | Absolute | 1.1 (H)Comment: Testing | 0 - 0.8 K/uL | EXTERNAL | | | Monocytes | performed at [facility];[address] | | LAB | | | | [address];[place] | | | | | | [address] | | | | + + + + + + | Absolute | 0.2Comment: Testing | 0 - 0.5 K/uL | EXTERNAL | | | Eosinophils | performed at [facility];[address] | | LAB | | | | [address];[place] | | | | | | [address] | | | | + + + + + + | Absolute | 0.0Comment: Testing | 0 - 0.1 K/uL | EXTERNAL | | | Basophils | performed at [facility];[address] | | LAB | | | | [address];[place] | | | | | | [address] | | | | + + + [...] EXTERNAL | | | | performed at [facility];[address] | mmol/L | LAB | | | | [address];[place] | | | | | | [address] | | | | + + + + + + | K | 3.8Comment: Testing | 3.5 - 4.9 | EXTERNAL | | | | performed at [facility];[address] | mmol/L | LAB | | | | [address];[place] | | | | | | [address] | | | | + + + + + + | Cl | 103Comment: Testing | 99 - 109 mmol/L | EXTERNAL | | | | performed at [facility];[address] | | LAB | | | | [address];[place] | | | | | | [address] | | | | + + + + + + | CO2 | 30Comment: Testing | 23 - 32 mmol/L | EXTERNAL | | | | performed at [facility];[address] | | LAB | | | | [address];[place] | | | | | | [address] | | | | + + + + + + | Anion Gap | 10Comment: Testing | 5 - 20 mmol/L | EXTERNAL | | | | performed at [facility];[address] | | LAB | | | | [address];[place] | | | | | | [address] | | | | + + + + + + | Glucose, | 177 (H)Comment: Testing | 65 - 99 mg/dL | EXTERNAL | | | Fasting | performed at [facility];[address] | | LAB | | | | [address];[place] | | | | | | [address] | | | | + + + + + + | BUN | 17Comment: Testing | 8 - 25 mg/dL | EXTERNAL | | | | performed at [facility];[address] | | LAB | | | | [address];[place] | | | | | | [address] | | | | + + + + + + | Creatinine | 1.21Comment: Testing | 0.70 - 1.30 | EXTERNAL | | | | performed at [facility];[address] | mg/dL | LAB | | | | [address];[place] | | | | | | [address] | | | | + + + + + + | BUN/Creatin | 14Comment: Testing | | EXTERNAL | | | ine Ratio | performed at [facility];[address] | | LAB | | | | [address];[place] | | | | | | [address] | | | | + + + + + + | Calcium | 8.9Comment: Testing | 8.5 - 10.2 | EXTERNAL | | | | performed at [facility];[address] | mg/dL | LAB | | | | [address];[place] | | | | | | [address] | | | | + + + + + + | Protein, | 7.5Comment: Testing | 6.3 - 8.2 g/dL | EXTERNAL | | | Total | performed at [facility];[address] | | LAB | | | | [address];[place] | | | | | | [address] | | | | + + + + + + | Albumin | 3.3 (L)Comment: Testing | 3.6 - 5.0 g/dL | EXTERNAL | | | | performed at [facility];[address] | | LAB | | | | [address];[place] | | | | | | [address] | | | | + + + + + + | Globulin | 4.2Comment: Testing | 1.3 - 4.9 g/dL | EXTERNAL | | | | performed at [facility];[address] | | LAB | | | | [address];[place] | | | | | | [address] | | | | + + + + + + | A/G Ratio | 0.8 (L)Comment: Testing | 1.0 - 2.4 | EXTERNAL | | | | performed at [facility];[address] | | LAB | | | | [address];[place] | | | | | | [address] | | | | + + + + + + | Bilirubin | 0.4Comment: Testing | 0.1 - 1.5 mg/dL | EXTERNAL | | | Total | performed at [facility];[address] | | LAB | | | | [address];[place] | | | | | | [address] | | | | + + + + + + | ALP, | 98Comment: Testing | 35 - 115 U/L | EXTERNAL | | | External | performed at [facility];[address] | | LAB | | | | [address];[place] | | | | | | [address] | | | | + + + + + + | AST | 27Comment: Testing | 10 - 45 U/L | EXTERNAL | | | | performed at [facility];[address] | | LAB | | | | [address];[place] | | | | | | [address] | | | | + + + + + + | ALT | 29Comment: Testing | 10 - 65 U/L | EXTERNAL | | | | performed at [facility];[address] | | LAB | | | | [address];[place] | | | | | | [address] | | | | + + + [...] | | | | | | at [facility];[address];[place] [address] | | | | + + + [...] | | | | | | editor dictionary Keyla Gregory | | | | | | (25) on 04/10/2013 | | | | | [...]
--- OUTSIDE RECORDS SUMMARY | ~2019-10-12 | XMS | Encounter Summary ---
Demographics + + + | Address | [address] | | | [place] [address] | + + + | Home Phone [...] | [facility] | | | and [place] | + + + | Address | Unknown | + + + | Phone | Unavailable | + + + Support + + + + + | Name | Relationship | Address | Phone | + + + + + | Sammi Kohler | ECON | [place] [address] | | + + + + + Care Team Providers + +------+ + | Care Guide Changer Name | Role | Phone | + [...] | | | | EMERGENCY CENTER | [place] [address] | nonintractable | | | | [address] | [phone] | headache, | | | | [place], [place] | | unspecified headache | | | | [address] | | type; Paroxysmal | | | | [phone] | | atrial fibrillation | | | | | | ([facility]); History of | | | | | [...] Service: (none) Author Type: Registered Nurse Filed: 12/05/14 4089 Date of Service: 12/05/14322 Status: Signed Core Driller Helper: Yamileth Harvey RN (Registered Nurse) Report received from EVE Contreras RN 12/05/14322 onver ivana Transaction, Provider Unknown - 12/05/2014 1:19 AM PDT ED Notes by José Luis Marti RN at 12/05/14118 Author: José Luis Marti RN Service: (none) Author Type: Registered Nurse Filed: 12/05/14119 Date of Service: 12/05/14118 Status: Signed Core Driller Helper: José Luis Marti RN (Registered Nurse) Bedside Report given to Diane Marti RN 12/05/14119 onver ivana Transaction, Provider Unknown - 12/05/2014 1:18 AM PDT ED Notes by Diane Fischer RN at 12/05/14117 Author: Diane Fischer RN Service: (none) Author Type: Registered Nurse Filed: 12/05/14117 Date of Service: 12/05/14117 Status: Signed Core Driller Helper: Diane Fischer RN (Registered Nurse) BS Report [...] 12/05/141902 Date of Service: 12/05/1428 Status: Signed Core Driller Helper: Breanne Hurtado DO (Physician) [facility] Department of Emergency Medicine 12:30 AM History [...] lungs as needed. 108 mcg/act Historical Provider Fdckl-R-Ruztehupnlumk (BEANO) TABS Take 150 Units by mouth [...] 100 mg by mouth nightly. Historical Provider jxurxinhb-jfwbiwiu-hbuecatbj hydroxide-simethicone Take 40 mLs by mouth daily [...] [facility] 10/16/14 12/15/14 CITLALY oRmo Allergies Allergen Reactions Vitamin B12 Rash History Social History Marital Status: Spouse Name: N/A Number of Children: 1 Years of Education: [employer] Occupational History disabled Social History Main Topics Smoking status: Never Smoker Smokeless tobacco: Never Used Alcohol Use: 0.0 oz/week 1-2 Cans of beer per week Comment: once week, occasionally Drug Use: No Sexual Activity: Not Currently Other Topics Concern Not on file Social History Narrative Lives alone x 1 wk, [facility] [place], , 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 2 falls in [...] CV/Resp: Negative for chest pain Negative for evqcdwwyz-yd-hxlhon Negative for cough GI: Negative for abdominal [...] strength 5/5 UE/LE, no deficits Strong symmetric drop tester strength No pronator drift No lower extremity [...] record system of [facility], I ailyn michaely reviewed the records with regard to the past medical/surgical history, previous medic ations, and allergies). Previous ED visits for similar and unrelated complaints. Laboratory Evaluation Results Procedure Component Value Ref Range Date/Time Comprehensive metabolic panel [[id number]] (Abnormal) Collected: 12/05/1449 Order Status: Completed Specimen [...] 65 U/L EGFR >60 >60 mL/min/1.73m2 Protime [[id number]] Collected: 12/05/1449 Order Status: Completed Specimen Information: Blood Updated: 12/05/14114 INR 1.1 aPTT [[id number]] Collected: 12/05/1449 Order Status: Completed Specimen Information: Blood Updated: 12/05/14114 APTT 28 23 - 32 seconds CBC with differential [[id number]] (Abnormal) Collected: 12/05/1449 Order Status: Completed Specimen [...] 0.08 0.00 - 0.10 K/uL Lamotrigine level [[id number]] Collected: 12/05/1449 Order Status: Sent Specimen Information: [...] Dec 05 2014 4:42AM Referring Provider Line: [phone] ID: [id number] Narrative: EXAM: MR ANGIOGRAM NECK [...] Dec 05 2014 4:30AM Referring Provider Line: [phone] ID: [id number] Narrative: EXAMS: MRI AND MRA [...] 05 2014 1:46AM Referring Provider Line: [phone] ID: [id number] Narrative: EXAM: CT HEAD EXAM [...] [address] [address] [facility] [address] [facility] Emergency Department If symptoms worsen [address] [facility] [address] Madi Gregory MD In 2 months to establish care [address] [facility] [address] Discharge Medications: Discharge Medication List as of 12/05/2014 6:06 AM START taking these medications Details !! warfarin (COUMADIN) 5 MG tablet Take 1 tablet by mouth daily., Starting 12/05/2014, Unti l 12/10/14, Print !! - Potential duplicate medications found. Please discuss with provider. This chart has been created using [employer] Speech Recognition software. The chart has been [...] | | | | | [place], | | | | | | [place] [address] | | | | | | [phone] | | | | | | | [...] in the extracranial arteries. | | | DEBI Electronically signed by Barbara Beltre MD on Nov | | | 2014 4:42AM Referring Provider Line: [phone] ID: [id number] | | + + + [...] Ramos Conversion - 09/20/2018 10:29 PM PDT EXAM:MR [...] 2014 4:42AM Referring | | Provider Line: [phone] ID: [id number] | | | |In the [...] Dec 05 2014 4:42AM Referring Provider Line: [phone] ID: [id number] | + + MRI Brain [...] 4:30AM Referring Provider | | | Line: [phone] ID: [id number] | | + + + [...] Ramos Conversion - 09/20/2018 10:29 PM PDT EXAMS:MRI [...] 2014 4:30AM Referring | | Provider Line: [phone] ID: [id number] | |Other: There is normal [...] Dec 05 2014 4:30AM Referring Provider Line: [phone] ID: [id number] | + + CT Head wo Contrast (12/05/2014 1:30 AM PDT) + + | Specimen | + + | | + + + + + | Impressions | Performed At | + + + | 1. No acute intracranial abnormality. [facility] | | | Electronically signed by Hermes Lopez MD on Dec 05 2014 1:46AM | | | Referring Provider Line: [phone] ID: [id number] | | + + + [...] 2014 1:46AM Referring Provider | | Line: [phone] ID: [id number] | |FINDINGS: | |Parenchyma: No [...] 05 2014 1:46AM Referring Provider Line: [phone] ID: [id number] | + + ECG 12 [...] | | | | | assignment editor Keyla Gregory | | | | | | (25) on 12/05/2014 | | | | | | 4:47:44 AM | | | | + + + + + + + + | Specimen | + + | | + + + + + | Narrative | Performed At | + + + | Historically converted procedure from [facility] Epic environment | EXTERNAL LAB | [...] | | Fingerstick | performed at [facility];[address] | | LAB | | | | [address];[place] | | | | | | [address] | | | | + + + [...] | | | | | performed at [facility], [address] | | | | | | [address] [place] | | | | | | [place] [address] | | | | + + [...] | | Patient | performed at [facility];[address] | | LAB | | | | [address];[place], [place] | | | | | | [address] | | | | + + + [...] [facility] | | | | | | [address] [facility];[place], [place] | | | | | | [address] | | | | + + + [...] [facility];[address] | K/uL | LAB | | | | [address];[place] | | | | | | [address] | | | | + + + + + + | Non- | 5.05Comment: Testing | 4.20 - 5.70 | EXTERNAL | | | Red Blood | performed at [facility];[address] | M/uL | LAB | | | Cells | [address];[place] | | | | | Counted | [id number] | | | | + + + + + + | Hemoglobin | 12.6 (L)Comment: Testing | 13.2 - 17.0 | EXTERNAL | | | | performed at [facility];[address] | g/dL | LAB | | | | [address];[place] | | | | | | [address] | | | | + + + + + + | Hematocrit, | 38.6 (L)Comment: Testing | 39.0 - 50.0 % | EXTERNAL | | | POC | performed at [facility];[address] | | LAB | | | | [address];[place] | | | | | | [address] | | | | + + + + + + | MCV | 76.4 (L)Comment: Testing | 80.0 - 100.0 fl | EXTERNAL | | | | performed at [facility];[address] | | LAB | | | | [address];[place] | | | | | | [address] | | | | + + + + + + | MCH | 25.0 (L)Comment: Testing | 27.0 - 34.0 pg | EXTERNAL | | | | performed at [facility];[address] | | LAB | | | | [address];[place] | | | | | | [address] | | | | + + + + + + | MCHC | 32.6Comment: Testing | 32.0 - 35.5 | EXTERNAL | | | | performed at [facility];[address] | g/dL | LAB | | | | [address];[place] | | | | | | [address] | | | | + + + + + + | RDW-CV | 42.4Comment: Testing | 37 - 53 fl | EXTERNAL | | | | performed at [facility];[address] | | LAB | | | | [address];[place] | | | | | | [address] | | | | + + + + + + | Platelet | 322Comment: Testing | 150 - 400 K/uL | EXTERNAL | | | Count | performed at [facility];[address] | | LAB | | | Plasma | [address];[place] | | | | | | [address] | | | | + + + + + + | MPV | 7.5Comment: Testing | fl | EXTERNAL | | | | performed at [facility];[address] | | LAB | | | | [address];[place] | | | | | | [address] | | | | + + + + + + | Differentia | AUTOMATEDComment: | | EXTERNAL | | | l Type | Testing performed at | | LAB | | | | [facility];[address];[place] [address] | | | | + + + + + + | % Segmented | 50.15Comment: Testing | % | EXTERNAL | | | | performed at [facility];[address] | | LAB | | | Neutrophils | [address];[place] | | | | | | [address] | | | | + + + + + + | % | 34.73Comment: Testing | % | EXTERNAL | | | Lymphocytes | performed at [facility];[address] | | LAB | | | | [address];[place] | | | | | | [address] | | | | + + + + + + | % Monocytes | 9.95Comment: Testing | % | EXTERNAL | | | | performed at [facility];[address] | | LAB | | | | [address];[place] | | | | | | [address] | | | | + + + + + + | % | 4.33Comment: Testing | % | EXTERNAL | | | Eosinophils | performed at [facility];[address] | | LAB | | | | [address];[place] | | | | | | [address] | | | | + + + + + + | % Basophils | 0.84Comment: Testing | % | EXTERNAL | | | | performed at [facility];[address] | | LAB | | | | [address];[place] | | | | | | [address] | | | | + + + + + + | Absolute | 4.66Comment: Testing | 1.90 - 7.40 | EXTERNAL | | | Segmented | performed at [facility];[address] | K/uL | LAB | | | Neutrophils | [address];[place] | | | | | | [address] | | | | + + + + + + | Absolute | 3.23Comment: Testing | 1.00 - 3.90 | EXTERNAL | | | Lymphocytes | performed at [facility];[address] | K/uL | LAB | | | | [address];[place] | | | | | | [address] | | | | + + + + + + | Absolute | 0.92 (H)Comment: Testing | 0.00 - 0.80 | EXTERNAL | | | Monocytes | performed at [facility];[address] | K/uL | LAB | | | | [address];[place] | | | | | | [address] | | | | + + + + + + | Absolute | 0.40Comment: Testing | 0.00 - 0.50 | EXTERNAL | | | Eosinophils | performed at [facility];[address] | K/uL | LAB | | | | [address];[place] | | | | | | [address] | | | | + + + + + + | Absolute | 0.08Comment: Testing | 0.00 - 0.10 | EXTERNAL | | | Basophils | performed at [facility];[address] | K/uL | LAB | | | | [address];[place] | | | | | | [address] | | | | + + + [...] [place] | | | | | | [address] | | | | + + + + + + | K | 3.8Comment: Testing | 3.5 - 4.9 | EXTERNAL | | | | performed at [facility];[address] | mmol/L | LAB | | | | [address];[place] | | | | | | [address] | | | | + + + + + + | Cl | 102Comment: Testing | 99 - 109 mmol/L | EXTERNAL | | | | performed at [facility];[address] | | LAB | | | | [address];[place] | | | | | | [address] | | | | + + + + + + | CO2 | 31Comment: Testing | 23 - 32 mmol/L | EXTERNAL | | | | performed at [facility];[address] | | LAB | | | | [address];[place] | | | | | | [address] | | | | + + + + + + | Anion Gap | 10Comment: Testing | 5 - 20 mmol/L | EXTERNAL | | | | performed at [facility];[address] | | LAB | | | | [address];[place] | | | | | | [address] | | | | + + + + + + | Glucose, | 150 (H)Comment: Testing | 65 - 99 mg/dL | EXTERNAL | | | Fasting | performed at [facility];[address] | | LAB | | | | [address];[place] | | | | | | [address] | | | | + + + + + + | BUN | 22Comment: Testing | 8 - 25 mg/dL | EXTERNAL | | | | performed at [facility];[address] | | LAB | | | | [address];[place] | | | | | | [address] | | | | + + + + + + | Creatinine | 1.2Comment: Testing | 0.70 - 1.30 | EXTERNAL | | | | performed at [facility];888 | mg/dL | LAB | | | | [address];[place] | | | | | | [address] | | | | + + + + + + | BUN/Creatin | 18Comment: Testing | | EXTERNAL | | | ine Ratio | performed at [facility];[address] | | LAB | | | | [address];[place] | | | | | | [address] | | | | + + + + + + | Calcium | 8.9Comment: Testing | 8.5 - 10.5 | EXTERNAL | | | | performed at [facility];888 | mg/dL | LAB | | | | [address];[place] | | | | | | [address] | | | | + + + + + + | Protein, | 7.2Comment: Testing | 6.3 - 8.2 g/dL | EXTERNAL | | | Total | performed at [facility];[address] | | LAB | | | | [address];[place] | | | | | | [address] | | | | + + + + + + | Albumin | 3.3 (L)Comment: Testing | 3.6 - 5.0 g/dL | EXTERNAL | | | | performed at [facility];[address] | | LAB | | | | [address];[place] | | | | | | [address] | | | | + + + + + + | Globulin | 3.9Comment: Testing | 1.3 - 4.9 g/dL | EXTERNAL | | | | performed at [facility];[address] | | LAB | | | | [address];[place] | | | | | | [address] | | | | + + + + + + | A/G Ratio | 0.8 (L)Comment: Testing | 1.0 - 2.4 | EXTERNAL | | | | performed at [facility];[address] | | LAB | | | | [address];[place] | | | | | | [address] | | | | + + + + + + | Bilirubin | 0.3Comment: Testing | 0.1 - 1.5 mg/dL | EXTERNAL | | | Total | performed at [facility];[address] | | LAB | | | | [address];[place] | | | | | | [address] | | | | + + + + + + | ALP, | 112Comment: Testing | 35 - 115 U/L | EXTERNAL | | | External | performed at [facility];[address] | | LAB | | | | [address];[place] | | | | | | [address] | | | | + + + + + + | AST | 20Comment: Testing | 10 - 45 U/L | EXTERNAL | | | | performed at [facility];[address] | | LAB | | | | [address];[place] | | | | | | [address] | | | | + + + + + + | ALT | 21Comment: Testing | 10 - 65 U/L | EXTERNAL | | | | performed at [facility];[address] | | LAB | | | | [address];[place] | | | | | | [address] | | | | + + + [...] [facility];[address] [facility] | | | | | | [place] [address] | | | | + + + [...]
--- OUTSIDE RECORDS SUMMARY | ~2019-10-12 | XMS | Encounter Summary ---
Demographics + + + | Address | [address] | | | [place] [address] | + + + | Home Phone [...] + | Sammi Kohler | ECON | [place] [address] | | + + + + + Care Team Providers + +------+ + | Care Life Skills Coordinator Volunteer Name | Role | Phone | + +------+ + PCP | Unavailable | + +------+ + Encounter Details +--------+ + + + + | Date | Type | Department | Care Team | Description | +--------+ + + + + | 10/10/ | Hospital | [facility] | Sy Mathis, | | | 2012 | Encounter | [facility] | [address] [place] [address] | | | | | [address] | [address], | | | | | [place], [place] | [place] [address] | | | | | [address] | [phone] | | | | | [phone] | | | +--------+ + + + [...] as of this encounter Discharge Summaries Sy Mathis MD - 10/10/2012 9:53 AM PDT Discharge Summaries by Sy Mathis MD at 10/10/12952 Author: Sy Mathis MD Service: (none) Author Type: Physician Filed: 10/10/1254 Date of Service: 10/10/12952 Status: Signed Associate Professor Of Physics: Sy Mathis MD (Physician) [facility] Service: Plastic Surgery Brief Post-op Discharge Note [...] 81 MG tablet Comments: Reason for Stopping: SY MATHIS MD 10/10/2012 documented in thi s [...] as of this encounter H&P Notes Sy Mathis MD - 10/10/2012 8:02 AM PDT Interval H&P Note by Sy Mathis MD at 10/10/12801 Author: Sy Mathis MD Service: (none) Author Type: Physician Filed: 10/10/12801 Date of Service: 10/10/12801 Status: Signed Associate Professor Of Physics: Sy Mathis MD (Physician) [facility] Service: Plastic Surgery Pre-Operative History & Physical Interval Update There have been no significant clinical changes since the completion of the above H&P. SY MATHIS MD 10/10/2012 *CORE MEASURES REMINDER: If the patient has a known or suspected infection prior to surger y, please add diagnosis to the problem list (consider: Infection 136.9). Source Note Author: Sy Mathis MD Service: (none) Author Type: Physician Filed: 09/26/12 1559 Date of Service: 09/26/12 155 Status: Signed Associate Professor Of Physics: Sy Mathis MD (Physician) [facility] Service: Plastic Surgery Pre-Operative History & Physical [...] - CHOLECYSTECTOMY; Surgeon: Jevon Vargas DO; Location: [facility]; Service: General; Laterality: N/A; [...] guidance. RCAPs discussed with him in detail. SY MATHIS MD 09/26/2012 leming, Sy Redman MD - 09/26/2012 3:57 PM PDT H&P (View-Only) by Sy Mathis MD at 09/26/12 1821 Author: Sy Mathis MD Service: (none) Author Type: Physician Filed: 09/26/12 7651 Date of Service: 09/26/12 8713 Status: Signed Associate Professor Of Physics: Sy Mathis MD (Physician) [facility] Service: Plastic Surgery Pre-Operative History & Physical [...] - CHOLECYSTECTOMY; Surgeon: Jevon Vargas DO; Location: [facility]; Service: General; Laterality: N/A; [...] guidance. RCAPs discussed with him in detail. SY MATHIS MD 09/26/2012 documented in thi s encounter Miscellaneous Notes Op Note - Sy Mathis MD - 10/10/2012 9:50 AM PDT Op Note by Sy Mathis MD at 10/10/12 0950 Author: Sy Mathis MD Service: (none) Author Type: Physician Filed: 10/10/12 1604 Date of Service: 10/10/12 0950 Status: Signed Associate Professor Of Physics: Sy Mathis MD (Physician) Related Notes: Original Note by Sy Mathis MD (Physician) filed at 10/10/12 0985 [facility] OPERATIVE NOTE PLASTIC SURGERY DEPT Name: [...] left upper back Post-Op: The same Surgeon: Sy Mathis MD Anesthesia: Gen. Provider: Dr. Burgos [...] to the recovery room in stable condition. SY MATHIS MD has created this entry using [employer] and [employer] macros. The entry has been reviewed and there may still exist sound alike word e rrors. documented in thi s encounter Plan of Treatment +--------+ + + + + | Date | Type | Specialty | Care Team | Description | +--------+ + + + + | 10/16/ | Anti-coag | Anticoagulation | LeeladanielNohemih | | | 2020 | visit | | [address] | | | | | | [facility], | | | | | | [place] [address] | | | | | | [phone] | | | | | | | [...] At | + + + | CASE: [id number] PATIENT: NORAH GR Surgical Pathology Report | [...] (FSA1) 12 and 6 o'clock tips; (FSA2) Porter Bag[employer] sections | | | of 12-3-6 o'clock margin, perpendicular; (FSA3) [employer]gage | | | sections of the 6-9-12 o'clock margin, perpendicular; (A4) | | | additional sections of 12-3-6 o'clock margins; (A5) additional | | | sections on 6-9-12 o'clock margins; (A6) Porter Baggage sections of | | | deep margin. [...] | | 4-6-8 o'clock margin, perpendicular resection. Porter Baggage sections | | | are submitted in [...] + + | Performing | Address | City/State[facility] | Phone Number | | Organization | | | | + +---------+ + + | EXTERNAL LAB | | | | + +---------+ + + documented in this encounter Visit Diagnoses Not on filedocumented in this encounter
--- OUTSIDE RECORDS SUMMARY | ~2019-10-12 | XMS | Encounter Summary ---
Demographics + + + | Address | [address] | | | [place] [address] | + + + | Home Phone [...] + | Sammi Kohler | ECON | [place] [address] | | + + + + + Care Team Providers + +------+ + | Care Quality Lab Technician Name | Role | Phone | + +------+ + PCP | Unavailable | + +------+ + Encounter Details +--------+ + + + + | Date | Type | Department | Care Team | Description | +--------+ + + + + | 02/24/ | Emergency | [facility] | Mary Ramírez, | Left lower quadrant | | 2017 | | [facility] | [facility] [address] | pain; Diarrhea, | | | | [facility] | [place] [address] | unspecified type | | | | [address] | [phone] | | | | | [place] | | | | | | [address] | | | | | | [phone] | | | +--------+ + + + [...] [place]land Service: Free Standing ED Author Type: Business Communications Instructor Filed: 02/25/161714 Date of Service: 02/25/161634 Status: Signed General Engineer: QUINN Bland (Business Communications Instructor) Received call from Tari from [facility] [...] Service: (none) Author Type: Physician Filed: 02/25/16 3177 Date of Service: 02/25/16 1541 Status: Signed General Engineer: Xander Ramírez MD (Physician) [facility] Department of Emergency Medicine 3:45 PM [...] [facility] the [facility] and [...] at th is time. Pt was in [facility] on 01/24/16 for similar sx. No care [employer]. PCP is Dr. Diego , he has [...] pain Stroke (HCC) TIA (transient ischemic attack) FDC (current) use of 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 Past Surgical History Procedure Laterality Date Unlisted procedure arthroscopy Knee surgery rt knee, patella Leg surgery LLE Colonoscopy Abdominal surgery Cholecystectomy Upper gastrointestinal endoscopy Skin biopsy Skin lesion excision Left 05/05/2014 Procedure: EXCISION - LESION - FROZEN SECTION; Surgeon: Sy Fierro MD; Location: [facility] MAIN OR; Service: Plastics; Laterality: Left; forearm Hernia repair N/A 07/03/2013 Procedure: LAPAROSCOPIC - HERNIA - INCISIONAL; Surgeon: Jevon Vargas DO; Location: [facility] MAIN OR; Service: General; Laterality: N/A; Colonoscopy N/A 03/04/2013 Procedure: COLONOSCOPY; Surgeon: Howie Gibson MD; Location: [facility] ENDOSCOPY; Service: Gastroe nterology; Laterality: N/A; Esophagogastroduodenoscopy N/A 03/03/2013 Procedure: ESOPHAGOGASTRODUODENOSCOPY; Surgeon: Howie Gibson MD; Location: [facility] ENDOSCOPY; S ervice: Gastroenterology; Laterality: N/A; Skin cancer excision Left 10/10/2012 Procedure: EXCISION - SKIN CANCER; Surgeon: Sy Fierro MD; Location: [facility] MAIN OR ; Service: Plastics; Laterality: Left; upper arm and upper back w/frozen section Cholecystectomy, laparoscopic N/A 09/12/2012 Procedure: LAPAROSCOPIC - CHOLECYSTECTOMY; Surgeon: Jevon Vargas DO; Location: [facility] MAIN OR; Service: General; Laterality: N/A; Prior to Admission medications Medication Sig Start Date End Date Taking? Authorizing Provider Albuterol Sulfate (VENTOLIN HFA IN) Inhale 2 puffs into the lungs as needed. 108 mcg/act Historical Provider Ivyyk-P-Vvtgbsqjuryje (BEANO) TABS Take 150 Units by mouth [...] 100 mg by mouth nightly. Historical Provider jxnktkqiz-hhnrrzfe-lwvmxvexa hydroxide-simethicone Take 40 mLs by mouth daily [...] Date/Time Urinalysis (reflex to microscopic/reflex to culture) [[id number]] (Abnormal) Collected: 02/25/16 1646 Order Status: Completed Specimen Information: Urine from Urine, Clean Catch Updated: 02/25/16 1659 COLOR UA YELLOW CLARITY CLEAR Specific [place], UA 1.025 1.001 - 1.035 LEUKOCYTE ESTERASE NEGATIVE NEGATIVE NITRITE NEGATIVE NEGATIVE UROBILINOGEN 0.2 <1.1 mg/dL PROTEIN NEGATIVE NEGATIVE mg/dL PH,URINE 5.5 4.6 - 8.0 BLOOD NEGATIVE NEGATIVE KETONES NEGATIVE NEGATIVE mg/dL BILIRUBIN NEGATIVE NEGATIVE GLUCOSE 100 (A) NEGATIVE mg/dL Protime-INR [[id number]] Collected: 02/25/161609 Order Status: Completed Specimen Information: Blood Updated: 02/25/16 1644 INR 1.0 Complete Metabolic Panel [[id number]] (Abnormal) Collected: 02/25/161609 Order Status: Completed Specimen [...] EGFR 60 (L) >60 mL/min/1.73m2 C-Reactive Protein [[id number]] (Abnormal) Collected: 01/19/17 1610 Order Status: Completed Specimen Information: Blood Updated: 02/25/16 1633 CRP 0.8 (H) <0.5 mg/dL CBC w Auto Diff [[id number]] (Abnormal) Collected: 02/25/16 1610 Order Status: Completed [...] 2014 was utilized as thought helpful FINDINGS: 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 Dense [...] spleen. Going back to the [facility] 2014-this is more conspicuous made not [...] up [address] [place] [address] [facility] [address] [facility] Emergency Department in [place] If symptoms worsen [address] [place] [address] Discharge Medications: Discharge Medication List as of [...] [place], | | | | | | [place] [address] | | | | | | [phone] | | | | | | | [...] as thought helpful FINDINGS: | | | 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 Dense [...] | hepatis. Unchanged from the CT from 2015 On image 23 there is a 8 [...] utilized as thought | | helpful FINDINGS: 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 Dense [...] EXTERNAL | | | | performed at [facility], [address] | | LAB | | | | [address] [place], | | | | | | [place] [address] | | | | + + + + + + | Clarity, | CLEARComment: Testing | | EXTERNAL | | | Urine | performed at [facility], [address] | | LAB | | | | [address] [place], | | | | | | [place] [address] | | | | + + + + + + | Specific | 1.025Comment: Testing | 1.001 - 1.035 | EXTERNAL | | | [place], | performed at [facility], [address] | | LAB | | | Urine | [address] [place], | | | | | | [place] [address] | | | | + + + + + + | Leukocyte | NEGATIVEComment: Testing | | EXTERNAL | | | Esterase, | performed at [facility], [address] | | LAB | | | Urine | [address] [place], | | | | | | [place] [address] | | | | + + + + + + | Nitrite, | NEGATIVEComment: Testing | | EXTERNAL | | | Urine | performed at [facility], [address] | | LAB | | | | [address] [place], | | | | | | [place] [address] | | | | + + + + + + | Urobilinoge | 0.2Comment: Testing | mg/dL | EXTERNAL | | | n, Urine | performed at [facility], [address] | | LAB | | | | [address] [place], | | | | | | [place] [address] | | | | + + + + + + | Protein, | NEGATIVEComment: Testing | mg/dL | EXTERNAL | | | Urine | performed at [facility], [address] | | LAB | | | | [address] [place], | | | | | | [place] [address] | | | | + + + + + + | pH, Urine | 5.5Comment: Testing | 4.6 - 8.0 | EXTERNAL | | | | performed at [facility], [address] | | LAB | | | | [address] [place], | | | | | | [place] [address] | | | | + + + + + + | Blood, | NEGATIVEComment: Testing | | EXTERNAL | | | Urine | performed at [facility], [address] | | LAB | | | | [address] [place], | | | | | | [place] [address] | | | | + + + + + + | Ketones | NEGATIVEComment: Testing | mg/dL | EXTERNAL | | | | performed at [facility], [address] | | LAB | | | | [address] [place], | | | | | | [place] [address] | | | | + + + + + + | Bilirubin, | NEGATIVEComment: Testing | | EXTERNAL | | | Urine | performed at [facility], [address] | | LAB | | | | [address] [place], | | | | | | [place] [address] | | | | + + + + + + | Glucose, | 100 (A)Comment: Testing | mg/dL | EXTERNAL | | | Urine | performed at [facility], [address] | | LAB | | | | [address] [place], | | | | | | [place] [address] | | | | + + + [...] | | | | | performed at [facility], [address] | | | | | | [address] [place], | | | | | | [place] [address] | | | | + + + [...] EXTERNAL | | | | performed at [facility], [address] | K/uL | LAB | | | | [address] [place], | | | | | | [place] [address] | | | | + + + + + + | Non- | 5.31Comment: Testing | 4.20 - 5.70 | EXTERNAL | | | Red Blood | performed at [facility], [address] | M/uL | LAB | | | Cells | [address], | | | | | Counted | [place] [address] | | | | + + + + + + | Hemoglobin | 14.3Comment: Testing | 13.2 - 17.0 | EXTERNAL | | | | performed at [facility], [address] | g/dL | LAB | | | | [address] [place], | | | | | | [place] [address] | | | | + + + + + + | Hematocrit, | 43.9Comment: Testing | 39.0 - 50.0 % | EXTERNAL | | | POC | performed at [facility], [address] | | LAB | | | | [address] [place], | | | | | | [place] [address] | | | | + + + + + + | MCV | 82.7Comment: Testing | 80.0 - 100.0 fl | EXTERNAL | | | | performed at [facility], [address] | | LAB | | | | [address] [place], | | | | | | [place] [address] | | | | + + + + + + | MCH | 27.0Comment: Testing | 27.0 - 34.0 pg | EXTERNAL | | | | performed at [facility], [address] | | LAB | | | | [address] [place], | | | | | | [place] [address] | | | | + + + + + + | MCHC | 32.7Comment: Testing | 32.0 - 35.5 | EXTERNAL | | | | performed at [facility], [address] | g/dL | LAB | | | | [address] [place], | | | | | | [place] [address] | | | | + + + + + + | RDW-CV | 41.6Comment: Testing | 37 - 53 fl | EXTERNAL | | | | performed at [facility], [address] | | LAB | | | | [address] [place], | | | | | | [place] [address] | | | | + + + + + + | Platelet | 250Comment: Testing | 150 - 400 K/uL | EXTERNAL | | | Count | performed at [facility], [address] | | LAB | | | Plasma | [address] [place], | | | | | | [place] [address] | | | | + + + + + + | MPV | 7.8Comment: Testing | fl | EXTERNAL | | | | performed at [facility], [address] | | LAB | | | | [address] [place], | | | | | | [place] [address] | | | | + + + + + + | Differentia | AUTOMATEDComment: | | EXTERNAL | | | l Type | Testing performed at | | LAB | | | | [facility], [address], | | | | | | [place] [address] | | | | + + + + + + | % Segmented | 60.60Comment: Testing | % | EXTERNAL | | | | performed at [facility], [address] | | LAB | | | Neutrophils | [address] [place], | | | | | | [place] [address] | | | | + + + + + + | % | 24.01Comment: Testing | % | EXTERNAL | | | Lymphocytes | performed at [facility], [address] | | LAB | | | | [address] [place], | | | | | | [place] [address] | | | | + + + + + + | % Monocytes | 9.60Comment: Testing | % | EXTERNAL | | | | performed at [facility], [address] | | LAB | | | | [address] [place], | | | | | | [place] [address] | | | | + + + + + + | % | 4.75Comment: Testing | % | EXTERNAL | | | Eosinophils | performed at [facility], [address] | | LAB | | | | [address] [place], | | | | | | [place] [address] | | | | + + + + + + | % Basophils | 1.04Comment: Testing | % | EXTERNAL | | | | performed at [facility], [address] | | LAB | | | | [address] [place], | | | | | | [place] [address] | | | | + + + + + + | Absolute | 5.94Comment: Testing | 1.90 - 7.40 | EXTERNAL | | | Segmented | performed at [facility], [address] | K/uL | LAB | | | Neutrophils | [address] [place], | | | | | | [place] [address] | | | | + + + + + + | Absolute | 2.36Comment: Testing | 1.00 - 3.90 | EXTERNAL | | | Lymphocytes | performed at [facility], [address] | K/uL | LAB | | | | [address] [place], | | | | | | [place] [address] | | | | + + + + + + | Absolute | 0.94 (H)Comment: Testing | 0.00 - 0.80 | EXTERNAL | | | Monocytes | performed at [facility], [address] | K/uL | LAB | | | | [address] [place], | | | | | | [place] [address] | | | | + + + + + + | Absolute | 0.47Comment: Testing | 0.00 - 0.50 | EXTERNAL | | | Eosinophils | performed at [facility], [address] | K/uL | LAB | | | | [address] [place], | | | | | | [place] [address] | | | | + + + + + + | Absolute | 0.10Comment: Testing | 0.00 - 0.10 | EXTERNAL | | | Basophils | performed at [facility], [address] | K/uL | LAB | | | | [address] [place], | | | | | | [place] [address] | | | | + + + [...] EXTERNAL | | | | performed at [facility], [address] | | LAB | | | | [address] [place], | | | | | | [place] [address] | | | | + + + [...] EXTERNAL | | | | performed at [facility], [address] | mmol/L | LAB | | | | [address] [place], | | | | | | [place] [address] | | | | + + + + + + | K | 3.8Comment: Testing | 3.5 - 4.9 | EXTERNAL | | | | performed at [facility], [address] | mmol/L | LAB | | | | [address] [place], | | | | | | [place] [address] | | | | + + + + + + | Cl | 101Comment: Testing | 99 - 109 mmol/L | EXTERNAL | | | | performed at [facility], [address] | | LAB | | | | [address] [place], | | | | | | [place] [address] | | | | + + + + + + | CO2 | 29Comment: Testing | 23 - 32 mmol/L | EXTERNAL | | | | performed at [facility], [address] | | LAB | | | | [address] [place], | | | | | | [place] [address] | | | | + + + + + + | Anion Gap | 13Comment: Testing | 5 - 20 mmol/L | EXTERNAL | | | | performed at [facility], [address] | | LAB | | | | [address] [place], | | | | | | [place] [address] | | | | + + + + + + | Glucose, | 261 (H)Comment: Testing | 65 - 99 mg/dL | EXTERNAL | | | Fasting | performed at [facility], [address] | | LAB | | | | [address] [place], | | | | | | [place] [address] | | | | + + + + + + | BUN | 24Comment: Testing | 8 - 25 mg/dL | EXTERNAL | | | | performed at [facility], [address] | | LAB | | | | [address] [place], | | | | | | [place] [address] | | | | + + + + + + | Creatinine | 1.3Comment: Testing | 0.70 - 1.30 | EXTERNAL | | | | performed at [facility], [address] | mg/dL | LAB | | | | [address] [place], | | | | | | [place] [address] | | | | + + + + + + | BUN/Creatin | 19Comment: Testing | | EXTERNAL | | | ine Ratio | performed at [facility], [address] | | LAB | | | | [address] [place], | | | | | | [place] [address] | | | | + + + + + + | Calcium | 9.6Comment: Testing | 8.5 - 10.5 | EXTERNAL | | | | performed at [facility], [address] | mg/dL | LAB | | | | [address], [place], | | | | | | [place] [address] | | | | + + + + + + | Protein, | 7.6Comment: Testing | 6.3 - 8.2 g/dL | EXTERNAL | | | Total | performed at [facility], [address] | | LAB | | | | [address] [place], | | | | | | [place] [address] | | | | + + + + + + | Albumin | 3.5Comment: Testing | 3.3 - 4.8 g/dL | EXTERNAL | | | | performed at [facility], [address] | | LAB | | | | [address] [place], | | | | | | [place] [address] | | | | + + + + + + | Globulin | 4.1Comment: Testing | 1.3 - 4.9 g/dL | EXTERNAL | | | | performed at [facility], [address] | | LAB | | | | [address] [place], | | | | | | [place] [address] | | | | + + + + + + | A/G Ratio | 0.9 (L)Comment: Testing | 1.0 - 2.4 | EXTERNAL | | | | performed at [facility], [address] | | LAB | | | | [address] [place], | | | | | | [place] [address] | | | | + + + + + + | Bilirubin | 0.4Comment: Testing | 0.1 - 1.5 mg/dL | EXTERNAL | | | Total | performed at [facility], [address] | | LAB | | | | [address] [place], | | | | | | [place] [address] | | | | + + + + + + | ALP, | 75Comment: Testing | 35 - 115 U/L | EXTERNAL | | | External | performed at [facility], [address] | | LAB | | | | [address] [place], | | | | | | [place] [address] | | | | + + + + + + | AST | 20Comment: Testing | 10 - 45 U/L | EXTERNAL | | | | performed at [facility], [address] | | LAB | | | | [address], | | | | | | [place] [address] | | | | + + + + + + | ALT | 25Comment: Testing | 10 - 65 U/L | EXTERNAL | | | | performed at [facility], [address] | | LAB | | | | [address], | | | | | | [place] [address] | | | | + + + [...] | | | | | | at [facility], [address] | | | | | | [place], [place] | | | | | | [address] | | | | + + + [...]
--- OUTSIDE RECORDS SUMMARY | ~2019-10-12 | XMS | Encounter Summary ---
Demographics + + + | Address | [address] | | | [place] [address] | + + + | Home Phone [...] + | Sammi Kohler | ECON | [place] [address] | | + + + + + Care Team Providers + +------+ + | Care Ob Tech Name | Role | Phone | [...] + + | Closed | Specialty | Neuropsycholo | Diagnoses | John, | | | | Services | gy | MCI (mild | CITLALY Wright | | | | Required | | cognitive | [address] | | | | | | impairment) | [address] | | | | | | Encounter | [address] | | | | | | for | [place] | | | | | | competency | [id number] | | | | | | evaluation | Phone: | | | | | | | [phone] | | | | | | | Fax: | | | | | | | [phone] | | +--------+ + + + + + Reason for Visit + + + | Reason | Comments | + + + | Paperwork | Social Security, patient states he would like ss to stop paying | | | the senior php web developer because he no longer needed and he would like to | | | be his own payee | + + + Encounter Details +--------+---------+ + + + | Date | Type | Department | Care Team | Description | +--------+---------+ + + + | 03/12/ | Office | [facility] | Adriana Lopez, | MCI (mild cognitive | | 2020 | Visit | [facility] | EXTENSION EDGER [address] | impairment) (Primary | | | | [address] | [address] [place], | Dx); Encounter for | | | | [place], [place] | [place] [address] | competency | | | | [address] | [phone] | evaluation | | | | [phone] | | | +--------+---------+ + + + Social History [...] + + + | Blood Pressure | 102/56 | 03/12/2019 8:57 AM | | | | | PST | | + + + + + | Pulse | 54 | 03/12/2019 8:57 AM | | | | | PST | | + + + + + | Temperature | 36.3 C (97.4 F) | 03/12/2019 8:57 AM | | | | | PST | | + + + + + | Respiratory Rate | 18 | 03/12/2019 8:57 AM | | | | | PST | | + + + + + | Oxygen Saturation | 95% | 03/12/2019 8:57 AM | | | | | PST | | + + + + + | Inhaled Oxygen | - | - | | | Concentration | | | | + + + + + | Weight | 97.1 kg (214 lb) | 03/12/2019 8:57 AM | | | | | PST | | + + + + + | Height | 180.3 cm (5' 11") | 03/12/2019 8:57 AM | | | | | PST | | + + + + + | Body Mass Index | 29.85 | 03/12/2019 8:57 AM | | | [...] of this encounter Patient Instructions Patient Instructions Adriana Lopez ARNP - 03/12/2019 9:15 AM PSTIt is a pleasure seein g you in clinic today. I look forward in providing the best quality care in meeting your [facility]! Applicable to new patients- Do not forget to complete new patient survey. Th ank you in advance. As discussed: Referrals: Neuropsychology Instructions: Need evaluation for competency Follow up: PCP in 03/20/2019 Monitor for uncontrolled shortness of breath, chest pain, nausea, vomiting, diarrhea, fever >101F, in this case seek emergency room evaluation. Be well, Adriana documented in this encounter Progress Notes Adriana Lopez ARNP - 03/12/2019 9:15 AM PST Subjective: Reason For Visit: 1. Social Security- Social Security, patient states he would like ss to stop paying the nichols kkeeper because he no longer needed and he would like to be his own payee Patient ID: Kevyn Guzman is a 63 y.o. male. Patient presents for Chief Complaint:"paperwork" HPI: Pt sees CITLALY Pereira in the clinic. Pt has significant medical history of hyper tension, hyperlipidemia, DVT, atrial fibrillation, COPD, diabetes mellitus II. Depression, O SA. Patient presents for evaluation of competency for social security benefits. He states t hat he has been using senior php web developer to manage his bills (rent and utility) for last 2 years, wh ile he pays his own bill. Prior to the senior php web developer being the jewelry sales representative payee, his funds was being managed by family, ex [id number]. He is requesting to be his own payee. He ment ioned that currently he lived alone and gets help three times a week and that person helps w ith shopping, cooking, and cleaning. Pt no longer drives and uses [employer] for transporta tion. He does not have family except for son in the area who is handicapped. The following portions of the patient's history were reviewed and updated as appropriate an d is available elsewhere in the record: medication, list, history, social history Patient Care Team: Mireya Pack SALESPERSON [employer]KS as PCP - General (Nurse Practitioner - Primary Care) Current Outpatient Medications: acetaminophen (TYLENOL) 325 mg tablet, Take 2 tablets by mouth every 4 hours as needed for Pain (or fever >= 38.6 C (101.5 F)). (Patient not taking: Reported on 03/12/2019), Disp: 30 tablet, Rfl: 1 apixaban (ELIQUIS) 5 mg tablet, Take 1 tablet by mouth 2 times daily., Disp: 60 tablet , Rfl: 4 ARIPiprazole (ABILIFY) 5 mg tablet, Take 1 tablet by mouth Daily., Disp: 30 tablet, Rf l: 4 atorvaSTATin (LIPITOR) 40 mg tablet, Take 1 tablet by mouth nightly., Disp: 30 tablet, Rfl: 11 Blood Glucose Monitoring Suppl (BLOOD GLUCOSE MONITOR SYSTEM) w/Device KIT, Dispense b rand per patient preference, Disp: 1 each, Rfl: 0 budesonide-formoterol (SYMBICORT) 160-4.5 mcg/puff inhaler, Inhale 2 puffs into the sawyer ngs 2 times daily., Disp: 1 Inhaler, Rfl: 0 carvedilol (COREG) 12.5 mg tablet, Take 1 tablet by mouth 2 times daily (with breakfas t & dinner)., Disp: 60 tablet, Rfl: 4 finasteride (PROSCAR) 5 mg tablet, Take 1 tablet by mouth Daily., Disp: 30 tablet, Rfl : 4 Glucose Blood (BLOOD GLUCOSE TEST STRIPS) STRP, For blood sugar testing 4 times daily, Disp: 200 each, Rfl: 11 hydrALAZINE (APRESOLINE) 25 mg tablet, Take 1 tablet by mouth 2 times daily., Disp: 60 tablet, Rfl: 4 insulin aspart (NOVOLOG FLEXPEN) 100 units/mL injection pen, Inject 5 Units under the skin 3 times daily (before meals). Plus sliding scale, Disp: , Rfl: insulin detemir (LEVEMIR FLEXTOUCH) 100 units/mL injection (pen), Inject 60 Units unde r the skin nightly., Disp: 12 mL, Rfl: 0 Insulin Pen Needle (BD PEN NEEDLE KYAW U/F) 32G X 4 MM MISC, For insulin administratio n 4 times daily, Disp: 200 each, Rfl: 11 Lancets (ACCU-CHEK MULTICLIX) MISC, 1 each by Other route 4 times daily., Disp: 204 ea ch, Rfl: 0 lisinopril (PRINIVIL, ZESTRIL) 10 mg tablet, Take 2 tablets by mouth Daily., Disp: 60 tablet, Rfl: 4 metFORMIN (GLUCOPHAGE) 500 mg tablet, Take 1 tablet by mouth 2 times daily (with break fast & dinner)., Disp: 60 tablet, Rfl: 4 NIFEdipine (ADALAT CC) 60 MG 24 hr tablet, Take 1 tablet by mouth Daily. (Patient not taking: Reported on 03/12/2019), Disp: 30 tablet, Rfl: 4 omeprazole (PRILOSEC) 20 mg capsule, Take 1 capsule by mouth every morning (before george akfast)., Disp: 30 capsule, Rfl: 4 tamsulosin (FLOMAX) 0.4 mg CAPS, Take 1 capsule by mouth 2 times daily., Disp: 60 caps ule, Rfl: 4 Past Medical History: Diagnosis Date Acute pulmonary embolism (HCC) 10/14/2017 Anxiety ARF (acute renal failure) ([facility]) 03/02/2013 Atrial fibrillation (HCC) Basal cell carcinoma 09/26/2012 arm and back COPD (chronic obstructive pulmonary disease) ([facility]) 03/02/2013 hypoxemia on 2 lts nc Depression Development delay Diabetes mellitus type II DVT (deep venous thrombosis) ([facility]) 03/29/2018 Facial droop 07/08/2013 GIB (gastrointestinal bleeding) 03/02/[address] Nur, rectal ulcers, nodule of GE junction Hypercholesterolemia 07/08/2013 Hyperlipidemia 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 Obesity, Class I, [...] DO; Location: [facility] MAIN OR; Service: General; Laterality: N/A; COLONOSCOPY COLONOSCOPY 03/04/2013 Procedure: COLONOSCOPY; Surgeon: Howie Gibson MD; Location: [facility] ENDOSCOPY; Service: Gastroen terology; Laterality: N/A; HERNIA REPAIR 07/03/2013 Procedure: LAPAROSCOPIC - HERNIA - INCISIONAL; Surgeon: Jevon Vargas DO; Location: [facility] MAIN OR; Service: General; Laterality: N/A; KNEE SURGERY rt knee, patella LEG SURGERY LLE OTHER SURGICAL HISTORY UNLISTED PROCEDURE ARTHROSCOPY OTHER SURGICAL HISTORY Left 05/05/2014 SKIN LESION EXCISION - Procedure: EXCISION - LESION - FROZEN SECTION; Surgeon: Sy murcia MD; Location: [facility] MA[facility] OR; Service: Plastics; Laterality: Left; forearm SKIN BIOPSY SKIN CANCER EXCISION Left 10/10/2012 Procedure: EXCISION - SKIN CANCER; Surgeon: Sy Fierro MD; Location: [facility]; Service: Plastics; Laterality: Left; upper arm and upper back w/frozen section UPPER GASTROINTESTINAL ENDOSCOPY UPPER GASTROINTESTINAL ENDOSCOPY 03/03/2013 Procedure: ESOPHAGOGASTRODUODENOSCOPY; Surgeon: Howie Gibson MD; Location: [facility] ENDOSCOPY; Se rvice: Gastroenterology; Laterality: N/A; [...] file Gets together: Not on file Attends mosque service: Not on file Active member of [...] Lives alone x 1 wk, moved from [facility], , 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 2 falls in the last 6 months. Review of Systems Constitutional: Positive for appetite change. Negative for activity change, chills, diaphor esis and fever. Respiratory: Negative for cough and shortness of breath. Cardiovascular: Negative for chest pain and leg swelling. Gastrointestinal: Negative for abdominal pain, blood in stool, diarrhea and nausea. Genitourinary: Negative for dysuria and hematuria. Skin: Negative for rash. Neurological: Positive for numbness (arms ). Negative for syncope, speech difficulty, weakn ess and headaches. Psychiatric/Behavioral: Negative for confusion, decreased concentration and sleep disturban ce. The patient is not nervous/anxious. Objective: BP 102/56 | Pulse 54 | Temp 36.3 C (97.4 F) (Temporal) | Resp 18 | Ht 1.803 m (5' 11") | Wt 97.1 kg (214 lb) | SpO2 95% | BMI 29.85 kg/m Physical Exam Constitutional: Appearance: Normal appearance. Comments: Dirty t-shirt with blood stain HENT: Head: Normocephalic and atraumatic. Right Ear: External ear normal. Left Ear: External ear normal. Nose: Nose normal. Eyes: General: Right eye: No discharge. Left eye: No discharge. Conjunctiva/sclera: Conjunctivae normal. Neck: Musculoskeletal: Normal range of motion. Cardiovascular: Rate and Rhythm: Normal rate. Rhythm irregular. Heart sounds: Normal heart sounds. No murmur. No friction rub. No gallop. Pulmonary: Effort: Pulmonary effort is normal. No respiratory distress. Breath sounds: Normal breath sounds. No stridor. No wheezing, rhonchi or rales. Chest: Chest wall: No tenderness. Musculoskeletal: Normal range of motion. Skin: General: Skin is warm. Neurological: Mental Status: He is alert and oriented to person, place, and time. Comments: Slurred speech Psychiatric: Mood and Affect: Mood normal. Behavior: Behavior normal. Assessment and Plan: Kevyn Guzman is a 63 y.o. pleasant male was seen today for the following: Visit Diagnoses and Associated Orders: 1. MCI (mild cognitive impairment): MMSE done in the clinic . Scored . Possible mild c ognitive changes due to normal aging. The Mini-Mental State Exam (MMSE) was administered with results as follows: Specific subtest scores listed below: MMSE: Orientation: 11/15 Registration : 03/11 Attention and Calculation: 06/10 Recall: 04/08 Language: 07/15 TOTAL: Interpretation of results/severity levels: Normal= 25-30 Mild=20-24 Moderate=13-20 Severe=0-12 - Ambulatory referral to Neuropsychology; Future 2. Encounter for competency evaluation: Discussed with the pt that he will need neuropsych testing to evaluate for competency. Pt is worried about not having a ride to [place], as we [place] a provider in [place]. Disccuss with the pt we will see if we can find resources to help with ride. - Ambulatory referral to Neuropsychology; Future RTC in 03/20/2019 with PCP; Mireya Pack or sooner if needed 30 minutes were spent face to face with the patient. Over 50% of time was spent on coordina tion of care, patient teaching, and developing a mutually agreeable plan of care. Remaining time was spent on reviewing chart records, history, and laboratory results, imaging results, current medications, physical examination and health maintenance management. This document has been created using [employer] Voice Recognition software. The entry h as been reviewed for content and accuracy, but there may contain error for similar sounding of words. If there is any question please contact the author of the document: Adriana vargas ARNP documented i n this encounter Plan of Treatment +--------+ + + + + | Date | Type | Specialty | Care Team | Description | +--------+ + + + + | 10/16/ | Anti-coag | Anticoagulation | Brittany Zaragoza | | | 2020 | visit | | CITLALY [address] | | | | | | [place], | | | | | | [place] [address] | | | | | | [phone] | | | | | | | | +--------+ + + + + + + +--------+ + + | Name | Type | Priori | Associated Diagnoses | Order Schedule | | | | ty | | | + + +--------+ + + | Ambulatory referral | Outpatient | Routin | MCI (mild | 1 Occurrences | | to Neuropsychology | Referral | e | cognitive | starting 03/12/2019 | | | | | impairment) | until 03/12/2020 | | | | | Encounter for | | | | | | competency | | | | | | evaluation | | + + +--------+ + + documented as of this encounter Visit Diagnoses + + | Diagnosis | + + | MCI (mild cognitive impairment) - Primary Mild cognitive impairment, so stated | + + | Encounter for competency evaluation | + + documented in this encounter
--- OUTSIDE RECORDS SUMMARY | ~2019-10-12 | XMS | Encounter Summary ---
Demographics + + + | Address | [address] | | | [place] [address] | + + + | Home Phone [...] + | Sammi Kohler | ECON | [place] [address] | | + + + + + Care Team Providers + +------+ + | Care Retail Wireless Sales Representative Name | Role | Phone | + +------+ + PCP | Unavailable | + +------+ + Encounter Details +--------+ + + + + | Date | Type | Department | Care Team | Description | +--------+ + + + + | 11/06/ | Emergency | [facility] | Gamal Leavitt MD | Chest pain | | 2013 | | [facility] | [address] | | | | | EMERGENCY CENTER | [place] [address] | | | | | [address] | [phone] | | | | | [place], [place] | | | | | | [address] | | | | | | [phone] | | | +--------+ + + + [...] 11/06/132005 Date of Service: 11/06/132005 Status: Signed Room Worker: Onel Kenney RN (Registered Nurse) Bed: RH3 Expected date: Expected time: Means of arrival: Comments: onver ivana Transaction, Provider Unknown - 11/06/2013 8:03 PM PDT ED Notes by Gilberto Plunkett RN at 11/06/132002 Author: Gilberto Plunkett RN Service: (none) Author Type: Registered Nurse Filed: 11/06/132002 Date of Service: 11/06/132002 Status: Signed Room Worker: Gilberto Plunkett RN (Registered Nurse) Bed: RH1 Expected date: Expected time: Means of arrival: Comments: onver ivana Transaction, Provider Unknown - 11/06/2013 7:24 PM PDT ED Notes by Yanna Loera RN at 11/06/131923 Author: Yanna Loera RN Service: (none) Author Type: Registered Nurse Filed: 11/06/131923 Date of Service: 11/06/131923 Status: Signed Room Worker: Yanna Loera RN (Registered Nurse) Pt resting [...] 11/06/131919 Date of Service: 11/06/131919 Status: Signed Room Worker: Maribeth Lew RN (Registered Nurse) Report given to Refugio Lew RN 11/06/131919 onver ivana Transaction, Provider Unknown - 11/06/2013 4:30 PM PDT ED Notes by Maribeth Lew RN at 11/06/131629 Author: Maribeth Lew RN Service: (none) Author Type: Registered Nurse Filed: 11/06/131647 Date of Service: 11/06/131629 Status: Signed Room Worker: Maribeth Lew RN (Registered Nurse) Patient states he was on the way to his nurses station and began to have chest pain, he caryl cribes it as achy, he has had a dry cough as well for three days, denies IA in the past or s ob with this Maribeth Lew RN 11/06/131647 ree, Gamal Pryor MD - 11/06/2013 4:24 PM PDTFormatting of this note might be different from the origin al. ED Provider Notes by Gamal Leavitt MD at 11/06/131623 Author: Gamal Leavitt MD Service: (none) Author Type: Physician Filed: 11/06/132229 Date of Service: 11/06/131623 Status: Signed Room Worker: Gamal Leavitt MD (Physician) [facility] Department of Emergency Medicine 4:24 PM History [...] Pt reports that he saw Dr. Sterling, business attorney, a month ago, who performed a cardiac [...] into the skin nightly. H istorical Provider zcjtmpkaw-dkwdohap-lxnrfixdg hydroxide-simethicone Take 40 mLs by mouth daily [...] Wt 110.224 kg (243 lb) | B IA 35.87 kg/m2 | SpO2 96% Vital signs [...] Value Ref Range Date/Time POC cardiac troponin [[id number]] Collected: 11/06/131901 Order Status: Completed Updated: 11/06/131915 POC CARDIAC TROPONIN 0.00 0.00 - 0.10 ng/mL CK MB [[id number]] Collected: 11/06/131899 Order Status: Sent Updated: 11/06/131904 Specimen Information: Blood Cardiac Panel [[id number]] (Abnormal) Collected: 11/06/13 1640 Order Status: Completed [...] ng/mL CK-MB Index 3.8 POC cardiac troponin [[id number]] Collected: 11/06/13 164 Order Status: Completed Updated: 11/06/131654 POC CARDIAC TROPONIN 0.00 0.00 - 0.10 [...] Info Jerrell Gutiérrez DO Call [phone] [facility] [id number] [facility] Emergency Department If symptoms worsen [address] [facility] [id number] Procedures Additional Documentation Procedures Attending Note: Documentation [...] ED Notes by Gilberto Plunkett RN at 11/06/13 160 Author: Gilberto Plunkett RN Service: (none) Author Type: Registered Nurse Filed: 11/06/131602 Date of Service: 11/06/131602 Status: Signed Room Worker: Gilberto Plunkett RN (Registered Nurse) Bed: 20 [...] | | | | | | [facility], | | | | | | [place] [address] | | | | | | [phone] | | | | | | | [...] | LAB | | | | [address];[place] | | | | | | [address] | | | | + + + + + + | CK-MB Index | UNABLE TO | | EXTERNAL | | | | CALCULATEComment: | | LAB | | | | Testing performed at | | | | | | [facility];[address];[place] [address] | | | | + + + [...] [place] | | | | | | [address] | | | | + + + + + -+ | Non- | 4.73Comment: Testing | 4.20 - 5.70 | EXTERNAL | | | Red Blood | performed at [facility];[address] | M/uL | LAB | | | Cells | [address];[place] | | | | | Counted | [id number] | | | | + + + + + -+ | Hemoglobin | 12.5 (L)Comment: Testing | 13.2 - 17.0 | EXTERNAL | | | | performed at [facility];888 | g/dL | LAB | | | | [address];[place] | | | | | | [address] | | | | + + + + + -+ | Hematocrit, | 37.8 (L)Comment: Testing | 39.0 - 50.0 % | EXTERNAL | | | POC | performed at [facility];[address] | | LAB | | | | [address];[place] | | | | | | [address] | | | | + + + + + -+ | MCV | 79.9 (L)Comment: Testing | 80.0 - 100.0 fl | EXTERNAL | | | | performed at [facility];[address] | | LAB | | | | [address];[place] | | | | | | [address] | | | | + + + + + -+ | MCH | 26.4 (L)Comment: Testing | 27.0 - 34.0 pg | EXTERNAL | | | | performed at [facility];[address] | | LAB | | | | [address];[place] | | | | | | [address] | | | | + + + + + -+ | MCHC | 33.0Comment: Testing | 32.0 - 35.5 | EXTERNAL | | | | performed at [facility];888 | g/dL | LAB | | | | [address];[place] | | | | | | [address] | | | | + + + + + -+ | RDW-CV | 41.1Comment: Testing | 37 - 53 fl | EXTERNAL | | | | performed at [facility];[address] | | LAB | | | | [address];[place] | | | | | | [address] | | | | + + + + + -+ | Platelet | 236Comment: Testing | 150 - 400 K/uL | EXTERNAL | | | Count | performed at [facility];[address] | | LAB | | | Plasma | [address];[place] | | | | | | [address] | | | | + + + + + -+ | MPV | 7.5Comment: Testing | fl | EXTERNAL | | | | performed at [facility];[address] | | LAB | | | | [address];[place] | | | | | | [address] | | | | + + + + + -+ | Differentia | AUTOMATEDComment: | | EXTERNAL | | | l Type | Testing performed at | | LAB | | | | [facility];[address];[place] [address] | | | | + + + + + -+ | % Segmented | 58.8Comment: Testing | % | EXTERNAL | | | | performed at [facility];[address] | | LAB | | | Neutrophils | [address];[place] | | | | | | [address] | | | | + + + + + -+ | % | 26.7Comment: Testing | % | EXTERNAL | | | Lymphocytes | performed at [facility];[address] | | LAB | | | | [address];[place] | | | | | | [address] | | | | + + + + + -+ | % Monocytes | 10.1Comment: Testing | % | EXTERNAL | | | | performed at [facility];[address] | | LAB | | | | [address];[place] | | | | | | [address] | | | | + + + + + -+ | % | 3.6Comment: Testing | % | EXTERNAL | | | Eosinophils | performed at [facility];[address] | | LAB | | | | [address];[place] | | | | | | [address] | | | | + + + + + -+ | % Basophils | 0.8Comment: Testing | % | EXTERNAL | | | | performed at [facility];[address] | | LAB | | | | [address];[place] | | | | | | [address] | | | | + + + + + -+ | Absolute | 5.2Comment: Testing | 1.9 - 7.4 K/uL | EXTERNAL | | | Segmented | performed at [facility];[address] | | LAB | | | Neutrophils | [address];[place] | | | | | | [address] | | | | + + + + + -+ | Absolute | 2.4Comment: Testing | 1.0 - 3.9 K/uL | EXTERNAL | | | Lymphocytes | performed at [facility];[address] | | LAB | | | | [address];[place] | | | | | | [address] | | | | + + + + + -+ | Absolute | 0.9 (H)Comment: Testing | 0 - 0.8 K/uL | EXTERNAL | | | Monocytes | performed at [facility];[address] | | LAB | | | | [address];[place] | | | | | | [address] | | | | + + + + + -+ | Absolute | 0.3Comment: Testing | 0 - 0.5 K/uL | EXTERNAL | | | Eosinophils | performed at [facility];[address] | | LAB | | | | [address];[place] | | | | | | [address] | | | | + + + + + -+ | Absolute | 0.1Comment: Testing | 0 - 0.1 K/uL | EXTERNAL | | | Basophils | performed at [facility];[address] | | LAB | | | | [address];[place] | | | | | | [address] | | | | + + + + + -+ | Na | 142Comment: Testing | 135 - 143 | EXTERNAL | | | | performed at [facility];[address] | mmol/L | LAB | | | | [address];[place] | | | | | | [address] | | | | + + + + + -+ | K | 3.6Comment: Testing | 3.5 - 4.9 | EXTERNAL | | | | performed at [facility];888 | mmol/L | LAB | | | | [address];[place] | | | | | | [address] | | | | + + + + + -+ | Cl | 108Comment: Testing | 99 - 109 mmol/L | EXTERNAL | | | | performed at [facility];[address] | | LAB | | | | [address];[place] | | | | | | [address] | | | | + + + + + -+ | CO2 | 28Comment: Testing | 23 - 32 mmol/L | EXTERNAL | | | | performed at [facility];[address] | | LAB | | | | [address];[place] | | | | | | [address] | | | | + + + + + -+ | Anion Gap | 10Comment: Testing | 5 - 20 mmol/L | EXTERNAL | | | | performed at [facility];[address] | | LAB | | | | [address];[place] | | | | | | [address] | | | | + + + + + -+ | Glucose, | 158 (H)Comment: Testing | 65 - 99 mg/dL | EXTERNAL | | | Fasting | performed at [facility];[address] | | LAB | | | | [address];[place] | | | | | | [address] | | | | + + + + + -+ | BUN | 21Comment: Testing | 8 - 25 mg/dL | EXTERNAL | | | | performed at [facility];[address] | | LAB | | | | [address];[place] | | | | | | [address] | | | | + + + + + -+ | Creatinine | 1.11Comment: Testing | 0.70 - 1.30 | EXTERNAL | | | | performed at [facility];888 | mg/dL | LAB | | | | [address];[place] | | | | | | [address] | | | | + + + + + -+ | BUN/Creatin | 19Comment: Testing | | EXTERNAL | | | ine Ratio | performed at [facility];[address] | | LAB | | | | [address];[place] | | | | | | [address] | | | | + + + + + -+ | Calcium | 8.8Comment: Testing | 8.5 - 10.2 | EXTERNAL | | | | performed at [facility];888 | mg/dL | LAB | | | | [address];[place] | | | | | | [address] | | | | + + + + + -+ | Protein, | 6.6Comment: Testing | 6.3 - 8.2 g/dL | EXTERNAL | | | Total | performed at [facility];[address] | | LAB | | | | [address];[place] | | | | | | [address] | | | | + + + + + -+ | Albumin | 3.1 (L)Comment: Testing | 3.6 - 5.0 g/dL | EXTERNAL | | | | performed at [facility];[address] | | LAB | | | | [address];[place] | | | | | | [address] | | | | + + + + + -+ | Globulin | 3.5Comment: Testing | 1.3 - 4.9 g/dL | EXTERNAL | | | | performed at [facility];[address] | | LAB | | | | [address];[place] | | | | | | [address] | | | | + + + + + -+ | A/G Ratio | 0.9 (L)Comment: Testing | 1.0 - 2.4 | EXTERNAL | | | | performed at [facility];[address] | | LAB | | | | [address];[place] | | | | | | [address] | | | | + + + + + -+ | Bilirubin | 0.3Comment: Testing | 0.1 - 1.5 mg/dL | EXTERNAL | | | Total | performed at [facility];[address] | | LAB | | | | [address];[place] | | | | | | [address] | | | | + + + + + -+ | ALP, | 84Comment: Testing | 35 - 115 U/L | EXTERNAL | | | External | performed at [facility];[address] | | LAB | | | | [address];[place] | | | | | | [address] | | | | + + + + + -+ | AST | 22Comment: Testing | 10 - 45 U/L | EXTERNAL | | | | performed at [facility];[address] | | LAB | | | | [address];[place] | | | | | | [address] | | | | + + + + + -+ | ALT | 25Comment: Testing | 10 - 65 U/L | EXTERNAL | | | | performed at [facility];[address] | | LAB | | | | [facility];[place], [place] | | | | | | [address] | | | | + + + [...] at [facility];[address] | | | | | | [address]vd;[place] [address] | | | | + + + + + -+ | CK, Total | 119Comment: Testing | 55 - 400 U/L | EXTERNAL | | | | performed at [facility];[address] | | LAB | | | | [address];[place], [place] | | | | | | [address] | | | | + + + [...] [place];[address] | | | | | | [address];[place] | | | | | | [address] | | | | + + + + + -+ | aPTT, | 24Comment: Testing | 23 - 32 seconds | EXTERNAL | | | Patient | performed at [facility];[address] | | LAB | | | | [address];[place] | | | | | | [address] | | | | + + + + + -+ | CK-MB | 4.5 (H)Comment: Testing | 0.5 - 3.6 ng/mL | EXTERNAL | | | | performed at [facility];[address] | | LAB | | | | [address];[place] | | | | | | [address] | | | | + + + [...] | | | | | index editor Kelya Gregory | | | | | | (25) on 11/07/2013 | | | | | | 1:28:50 AM | | | | + + + + + + + + | Specimen | + + | | + + + + + | Narrative | Performed At | + + + | Historically converted procedure from [facility] Epic environment | EXTERNAL LAB | + [...]
--- OUTSIDE RECORDS SUMMARY | ~2019-10-12 | XMS | Encounter Summary ---
Demographics + + + | Address | [address] | | | [place] [address] | + + + | Home Phone [...] + | Sammi Kohler | ECON | [place] [address] | | + + + + + Care Team Providers + +------+ + | Care Liquid Sugar Fortifier Name | Role | Phone | + +------+ + PCP | Unavailable | + +------+ + Encounter Details +--------+ + + + + | Date | Type | Department | Care Team | Description | +--------+ + + + + | 03/02/ | [facility] | [facility] | Edenilson Chapman | GIB | | 2014 - | Encounter | [facility]ENTER | [address] | (gastrointestinal | | | | CLINICAL DECISION | [address] | bleeding); WARD | | 03/05/ | | [address] | [place] [address] | (obstructive sleep | | 2013 | | [place], [place] | [phone] | apnea); GI bleed; | | | | [phone] | | Hematemesis; Rectal | | | | [phone] | | bleed; Accelerated | | | | | | hypertension; | | | | | | Anxiety and | | | | | | depression; ARF | | | | | | (acute renal | | | | | | failure) (HCC); | | | | | | Atrial fibrillation | | | | | | (HCC); Development | | | | | | delay; Diabetes | | | | | | mellitus type II; | | | | | | Fall at home; HTN | | | | | | (hypertension) | +--------+ + + + + Social [...] documented as of this encounter Discharge Summaries Scott Martínez MD - 03/05/2013 11:15 AM PSTFormatting of this note might be different from th e original. Discharge Summaries by Scott Martínez MD at 03/05/13 1115 Author: Scott Martínez MD Service: (none) Author Type: Physician Filed: 03/18/13 1059 Date of Service: 03/05/13 111 Status: Signed Explosive Ordnance Disposal Manager: Scott Martínez MD (Physician) Related Notes: Original Note by Scott Martínez MD (Physician) filed at 03/05/13 1118 [facility] Service: Hospitalist Physician Discharge Summary Patient ID: Norah Guzman [id number] y.o. 1955 Admit date: 03/02/2013 Discharge date and time: No discharge date for patient encounter. 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 He was admitted t o hospitalist service. Hemoglobin was stable, did not need any transfusion. He had endoscopy that showed a 1.2 cm nodule in the gastroesophageal junction that was thought to be a sourc e of bleeding. He also had a colonoscopy that showed rectal ulcers. His hemoglobin had staye d stable. Presently, he is stable for discharge. Plan as below. 1. For upper gastrointestinal bleed, most likely due to 1.[address] Gibson, the patie nt will be referred to [place] and he will need to have endoscopic resection of the nodule, which cannot be done over here for biopsy, but he will follow up with Dr. Gibson in the next 1 t o 2 weeks for same. Also follow biopsy results from here. He will continue Protonix 40 mg p. o. b.i.d. We will be holding his aspirin and Plavix for now until we know for sure about the nodule. 2. Hypertension. His blood pressure has been somewhat uncontrolled after he came back from the procedure. With usual home medicine, he is somewhat stable. Will continue his Cardizem, his nebivolol, and the clonidine has been increased to 0.2 mg t.i.d. and the lisinopril has been increased to 40 mg daily. Will continue with this regimen for now and I have asked him to follow his blood pressure in 2 days and follow with primary care physician if needed. 3. Atrial fibrillation. He had a history of this but all the EKGs during the hospital stay have been normal sinus rhythm, so will continue with beta-linda for rate control and Cardi zem but we are holding the aspirin and Plavix for now due to the bleed, but again follow up with primary care physician for same. 4. This plan of care was discussed with the patient and also his caregiver over the phone. They voiced understanding of same. We also talked to case assistant about possibility for a ne w transport from [facility] to [place], as the caregiver will not be able to drive him and nee ded some help in that . Follow up: CITLALY Kent [address] [facility] [id number] Schedule an appointment as soon as possible for a visit Howie Gibson [facility] [address] [facility] [address] Call in 1 week Secondary Discharge Diagnoses AND Other Medical History: Past Medical History Diagnosis Date [...] nterology; Laterality: N/A; Discharged Condition: Stable for D/c as dictated above. Significant Diagnostic Studies: End Colonoscopy Imaging 03/04/2013 This is a non-reportable procedure without a radiologist report and is used for image storage only. Please review the GI encounter notes for details on the procedure. End Esophogogastroduodenoscopy 03/03/2013 This is a non-reportable procedure without a radiologist report and is used for image storage only. Please review the GI encounter notes for details on the procedure. Discharge Vitals: Filed Vitals: 03/04/13 1955 03/04/13 2326 03/05/13 0300 03/05/13 0755 BP: 138/63 126/62 146/69 182/86 Pulse: 83 79 67 72 Temp: 98.1 F (36.7 C) 98.1 F (36.7 C) 98.1 F (36.7 C) 98.3 F (36.8 C) TempSrc: Axillary Oral Axillary Oral Resp: 18 18 18 18 Height: Weight: 109.544 kg (241 lb 8 oz) SpO2: 91% 94% 96% 97% Discharge Exam: General: Well nourished. Psych: Alert [...] Neurological: Non focal. Motor grossly intact. LABS: CBC: Lab Results Component Value Date WBC 8.6 03/05/2013 RBC 4.87 03/05/2013 HGB 12.9* 03/05/2013 HCT 40.4 03/05/2013 MCV 82.9 03/05/2013 MCH 26.4* 03/05/2013 MCHC 31.8* 03/05/2013 RDW 45.9 03/05/2013 PLT 230 03/05/2013 MPV 7.8 03/05/2013 DIFFTYPE AUTOMATED 03/05/2013 CMP: Lab Results Component Value Date NA 139 03/05/2013 K 3.9 03/05/2013 CL 107 03/05/2013 CO2 26 03/05/2013 ANIONGAP 10 03/05/2013 GLUF 138* 03/05/2013 BUN 13 03/05/2013 CREATININE 1.01 03/05/2013 BCR 13 03/05/2013 CA 9.0 03/05/2013 PROT 6.1* 03/05/2013 ALB 3.4* 03/05/2013 GLOB 2.7 03/05/2013 BILITOT 0.4 03/05/2013 ALP 70 03/05/2013 AST 20 03/05/2013 ALT 18 03/05/2013 EGFR >60 03/05/2013 Albumin: Lab Results Component Value Date ALB 3.4* 03/05/2013 Magnesium: Lab Results Component Value Date MG 1.7 03/05/2013 Phosphorus: Lab Results Component Value Date PHOS 3.6 03/05/2013 PT/INR: Lab Results Component Value Date INR 1.0 03/02/2013 Troponin: Lab Results Component Value Date TROPONINI <0.020 03/04/2013 Last 3 Troponin: Lab Results Component Value Date TROPONINI <0.020 03/04/2013 TROPONINI <0.02 01/30/2013 TROPONINI <0.020 01/29/2013 TSH: Lab Results Component Value Date TSH 6.49* 03/03/2013 Patient Instructions: Medication List As of 03/05/2013 11:15 AM START taking these medications * HYDROcodone-acetaminophen 5-325 MG per tablet QTY: 30 tablet Refills: 0 Commonly known as: NORCO Take 1 tablet by mouth every 6 (six) hours as needed for Pain. pantoprazole 40 MG tablet QTY: 30 tablet Refills: 0 Commonly known as: PROTONIX Take 1 tablet by mouth every morning before breakfast. * Notice: This list has 1 medication(s) that are the same as other medications prescribed for you. Read the directions carefully, and ask your doctor or other care provider to review them with you. CHANGE how you take these medications cloNIDine 0.2 MG tablet QTY: 90 tablet Refills: 0 Commonly known as: CATAPRES Take 1 tablet by mouth 3 (three) times daily. What changed: - medication strength - dose - how often to take the med lisinopril 40 MG tablet QTY: 30 tablet Refills: 0 Commonly known as: PRINIVIL,ZESTRIL Take 1 tablet by mouth daily. What changed: - medication strength - dose - how often to take the med CONTINUE taking these medications ARIPiprazole 10 MG tablet Refills: 0 Commonly known as: ABILIFY calcium carbonate 500 MG chewable tablet Refills: 0 Commonly known as: TUMS diltiazem 240 MG 24 hr capsule Refills: 0 Commonly known as: CARDIZEM CD famotidine 20 MG tablet QTY: 30 tablet Refills: 0 Commonly known as: PEPCID Take 1 tablet by mouth 2 (two) times daily. fenofibrate 160 MG tablet Refills: 0 fluticasone-salmeterol 250-50 MCG/DOSE QTY: 2 each Refills: 1 Commonly known as: ADVAIR Inhale 1 puff into the lungs every 12 (twelve) hours. * HYDROcodone-acetaminophen 5-325 MG per tablet QTY: 10 tablet Refills: 0 Commonly known as: NORCO Take 1 tablet by mouth every 6 (six) hours as needed for Pain. * insulin aspart 100 UNIT/ML injection Refills: 0 Commonly known as: NOVOLOG * insulin aspart 100 UNIT/ML injection Refills: 0 Commonly known as: NOVOLOG insulin glargine 100 UNIT/ML injection Refills: 0 Commonly known as: LANTUS loperamide 2 MG capsule Refills: 0 Commonly known as: IMODIUM LORazepam 0.5 MG tablet Refills: 0 Commonly known as: ATIVAN nebivolol 10 MG tablet Refills: 0 Commonly known as: BYSTOLIC nitroGLYCERIN 0.4 MG SL tablet Refills: 0 Commonly known as: NITROSTAT paroxetine 40 MG tablet Refills: 0 Commonly known as: PAXIL pravastatin 20 MG tablet Refills: 0 Commonly [...] 75 MG tablet Commonly known as: PLAVIX ibuprofen 200 MG tablet Commonly known as: ADVIL,MOTRIN ranitidine 150 MG tablet Commonly known as: ZANTAC Where to get your medications These are the prescriptions that you need to tack picker. You may get these medications from any pharmacy. cloNIDine 0.2 MG tablet HYDROcodone-acetaminophen 5-325 MG per tablet lisinopril 40 MG tablet pantoprazole 40 MG tablet Activity: activity as tolerated Diet: Cardiac Diet Discharge took more than 35 minutes, to include final examination, discussion of admission, and preparation of prescriptions, instructions for ongoing care, follow up and dictation of summary. There are no Patient Instructions on file for this visit. Follow-up with PMD and other physicians as directed. Signed: Scott Martínez 03/05/2013 11:15 AM documented in this encou nter Medications at [...] documented as of this encounter Progress Notes Bong Ahn MD - 03/04/2013 5:41 PM PSTFormatting of this note might be differe nt from the original. Progress Notes by Bong Ahn MD at 03/04/131740 Author: Bong Ahn MD Service: Hospitalist Author Type: Physician Filed: 03/04/131805 Date of Service: 03/04/131740 Status: Signed Explosive Ordnance Disposal Manager: Bong Ahn MD (Physician) [facility] Service: Hospitalist Progress Note Hospital Day: LOS: 2 days Post-Op Day: Day of Surgery SUBJECTIVE Patient Summary: Events Overnight: Back from colonoscopy . Patient is anxious, sweaty, C/O mild abdomi nal pain around umbilicus. No nausea or vomiting. He denies chest pain or SOB. Last drink 4 days ago. No history of excessive drinking or DTs. Denies fever or chills. Scheduled Medications ARIPiprazole 15 mg Oral Nightly calcium carbonate 500 mg Oral Daily cloNIDine 0.2 mg Oral 4x Daily fluticasone-salmeterol 1 puff Inhalation Q12H insulin aspart 0-6 Units Subcutaneous Q6H YAMEL lisinopril 40 mg Oral BID nebivolol 10 mg Oral Daily ondansetron 8 mg Intravenous Once paroxetine 40 mg Oral QAM polyethylene glycol 17 g Oral Daily pravastatin 20 mg Oral Nightly tiotropium 18 mcg Inhalation Daily [DISCONTINUED] cloNIDine 0.1 mg Oral 4x Daily Continuous Infusions dextrose pantoprazole 8 mg/hr (03/04/13 1549) sodium chloride 110 mL/hr at 03/04/13 0552 PRN Medications acetaminophen, acetaminophen, aluminum-magnesium hydroxide-simethicone, dextrose, dextrose, dextrose, diphenhydrAMINE, diphenhydrAMINE, glucagon, glucagon, hydrALAZINE, HYDROcodone-ac etaminophen, LORazepam, LORazepam, morphine, morphine, morphine, nitroGLYCERIN, ondansetron, ondansetron, polyethylene glycol, albuterol, zolpidem, [DISCONTINUED] hydrALAZINE OBJECTIVE Vital Signs: BP 221/102 | Pulse 91 | Temp 97.9 F (36.6 C) (Oral) | Resp 18 | Ht 1.753 m (5' 9") | Wt 110.814 kg (244 lb 4.8 oz) | BMI 36.06 kg/m2 | SpO2 97% Temp: [97.6 F (36.4 C)-98.6 F (37 C)] 97.9 F (36.6 C) (03/04 1729) BP: (159-223)/(74-102) 221/102 mmHg (03/04 1729) Heart Rate: [49-91] 91 (03/04 1729) Resp: [16-20] 18 (03/04 1729) SpO2: [93 %-98 %] 97 % (03/04 151) FiO2 : [80 %] 80 % (03/04 133) Physical Exam Vitals reviewed. Constitutional: He is oriented to person, place, and time. He appears well-developed and we ll-nourished. No distress. HENT: Nose: Nose normal. Mouth/Throat: No oropharyngeal exudate. Eyes: EOM are normal. Pupils are equal, round, and reactive to light. No scleral icterus. Neck: Neck supple. No JVD present. Cardiovascular: [...] There is no rebound and no guarding. Mild marilee umbilical tenderness Musculoskeletal: He exhibits no edema and no tenderness. Neurological: He is alert and oriented to person, place, and time. He has normal reflexes. Skin: Skin is warm. No rash noted. He is diaphoretic. No erythema. No pallor. Psychiatric: Anxious DATA CBC: Lab Results Component Value Date WBC 7.9 03/04/2013 RBC 5.05 03/04/2013 HGB 13.1* 03/04/2013 HCT 41.6 03/04/2013 MCV 82.4 03/04/2013 MCH 26.0* 03/04/2013 MCHC 31.5* 03/04/2013 RDW 44.6 03/04/2013 PLT 220 03/04/2013 MPV 7.8 03/04/2013 DIFFTYPE AUTOMATED 03/04/2013 CMP: Lab Results Component Value Date NA 135 03/04/2013 K 3.4* 03/04/2013 CL 106 03/04/2013 CO2 27 03/04/2013 ANIONGAP 5 03/04/2013 GLUF 189* 03/04/2013 BUN 10 03/04/2013 CREATININE 0.90 03/04/2013 BCR 11 03/04/2013 CA 8.9 03/04/2013 PROT 6.5 03/04/2013 ALB 3.7 03/04/2013 GLOB 2.8 03/04/2013 BILITOT 0.5 03/04/2013 ALP 68 03/04/2013 AST 27 03/04/2013 ALT 26 03/04/2013 EGFR >60 03/04/2013 EGD 03/01/2013;- 1.2 cm nodule with bleeding site at GEJ that was causing bleeding. Patient will need endoscopic mucosal resection from [place] facility. If this is a true nodule - Mild diffused gastritis - Normal duodenum to the third part - No active bleeding seen. PROBLEM LIST Principal Problem: *GIB (gastrointestinal bleeding) Active Problems: Diabetes mellitus type II Atrial fibrillation HTN (hypertension) WARD (obstructive sleep apnea) Fall at home Anxiety and depression Accelerated hypertension Development delay ARF (acute renal failure) COPD (chronic obstructive pulmonary disease) ASSESSMENT AND PLAN: 1. Upper GI bleeding due to 1.2 cm nodule at GEJ junction. As per Dr. Gibson the patient will n eed endoscopic mucosal resection of the tumor that cannot be done in this hospital, and for that the patient may be transferred to either [facility] or [facility] in [place]. However, the patient has a history of passing bright red blood through the rectum but colonoscopty done today showed rectal ulcer and internal he morrohids only. . Meanwhile the patient will continue to be on Protonix. 2. History of atrial fibrillation in the past. I looked at the EKGs for the last couple of years and every EKG in the system has shown normal sinus rhythm. He is on aspirin and Plavix and both would be kept on hold due to active GI hemorrhage. 3. Acute posthemorrhagic anemia. Mild in nature. I will keep a close watch on hemoglobin an d hematocrit and will transfuse blood if needed. 4. Diabetes mellitus, type 2. We will continue current plan of care and adjust doses of ins ulin as his morning glucose was elevated at 208. 5. Accelerated Hypertension. Current blood pressure 220/105. Patient on lisinopril, nebivo lol, and clonidine. I will increase the dose of clonidine to 0.2 mg 4 times a day and close ly monitor blood pressure. Will also increase the dose of hydralazine to 20 mg IV every 4 ho urs as needed. Patient is anxious and may benefit from small dose of benzodiazepines. 6. Morbid obesity with BMI of 36.06. He also has a history of obstructive sleep apnea syndr ome. 7. Mild developmental delay. 8. History of anxiety and depression. The patient is on Paxil and on Abilify. 9. History of COPD though the patient denies it. His pulmonary status is stable. 10. Mild hypokalemia. Will supplement. Disposition: Will hold discharge till blood pressure under better control. Code Status: Full Code Bong Ahn MD 03/04/2013 onversion Tra nsaction, Provider Unknown - 03/04/2013 4:21 PM PSTFormatting of this note might be differe nt from the original. Case Management by QUINN Wharton at 03/04/13 1621 Author: QUINN Wharton Service: (none) Author Type: Screen Writer Filed: 03/04/13 1626 Date of Service: 03/04/13 1621 Status: Signed Explosive Ordnance Disposal Manager: QUINN Wharton (Screen Writer) Pt will receive NPO after MN colonoscopy and possible d/c to tomorrow 03/05/2013. onver ivana Transaction, Provider Unknown - 03/04/2013 2:34 PM PST Progress Notes by Snajuanita Oliva RD, CDE at 03/04/13 1434 Author: Sanjuanita Oliav RD, CDE Service: (none) Author Type: Occupational Health Technician Filed: 03/04/13 1442 Date of Service: 03/04/13 1434 Status: Signed Explosive Ordnance Disposal Manager: Sanjuanita Oliva RD, CDE (Occupational Health Technician) Pt with history of Type 2 diabetes on Lanuts and Novolog. Elevated blood sugars here - Rec ommend: Start on home dose of Lantus - 10 units at hs. Sanjuanita Oliva RD, MPH, CDE, Occupational Health Technician 03/04/2013 2:36 PM onver ivana Transaction, Provider Unknown - 03/04/2013 8:25 AM PST Progress Notes by Gisele Curry PTA at 03/04/13824 Author: Gisele Curry PTA Service: (none) Author Type: Respiratory Therapy Assistant Filed: 03/04/13918 Date of Service: 03/04/13824 Status: Signed Explosive Ordnance Disposal Manager: Gisele Curry PTA (Respiratory Therapy Assistant) 03/04/13824 PT Last Visit PT Received On 03/04/13 Reason for Treatment Other (comment) (rectal bleeds) Requires PT Follow Up No Follow up PT Only? No Assistance Required 1 person;Independent Trailer Body Assembler Needed No Other Comments Comments Pt in bed upon arrival, agreeable to PT. Pt reports that he is planning to have GI surgery at 3:30 and is not sure if he will be discharged after. Pt performed bed mobility w ith supervision, transfer mod I, ambulates without AD 350ft with supervision. Returned to be d at the end of therapy. (BP 173/83 post PT) Cognition Overall Cognitive Status WFL Orientation Level Oriented Bed Mobility Supine to Sit Supervision Sit to Supine Supervision Scooting Supervision Transfers Sit to/from Stand Modified independent (from EOB) Mobility Weight Bearing Status WBAT RLE;WBAT LLE Ambulation Assistance Supervision Maximal Ambulation Distance (feet) 350 Total Ambulation Distance (feet) 350 Distance limited by? Patient's ability Pattern WFL (VCs to keep a slower pace ) Assistive Device None Activity Tolerance Activity Tolerance Patient limited by fatigue;Patient limited by shortness of breath (SOB) (due to fast ambulation pace) Nurse Made Aware yes Plan Treatment/Interventions Discharge skilled PT services Progress Reached highest level of independence with therapy PT Frequency Other (Comment) (Per PT initial evaluation Pt at baseline D/C PT) Recommendation Recommendations Return to prior living situation onver ivana Transaction, Provider Unknown - 03/04/2013 6:11 AM PST Progress Notes by Sophia Gibson RN at 03/04/13 0611 Author: Sophia Gibson RN Service: (none) Author Type: Registered Nurse Filed: 03/04/13 0615 Date of Service: 03/04/13610 Status: Signed Explosive Ordnance Disposal Manager: Sophia Gibson RN (Registered Nurse) Pt finished the golytely, tolerated well. No blood noted in stool. NPO since midnight. Me dicated with hydralazine x1 for SBP>160. SBP 170-180s this shift. Medicated with morphine x 1 for generalized pain, tylenol x1 for headache with relief. Appears to be confused and forg etful occasionally. Screams out for staff when needs assistance despite reminders to use amadou l light. Will continue to monitor. onver ivana Transaction, Provider Unknown - 03/03/2013 5:10 PM PST Case Management by QUINN Lea at 03/03/131709 Author: QUINN Lea Service: (none) Author Type: Screen Writer Filed: 03/03/131710 Date of Service: 03/03/131709 Status: Signed Explosive Ordnance Disposal Manager: QUINN Lea (Screen Writer) CM spoke with pt's RN regarding discharge needs. Per RN's report, she did not identify nee ds and feel that the pt does not need to be seen by CM at this time. I encouraged RN to ent er a CM consult as needs arise. Pt is DD, from [facility], plans to return if he is not transferred to [facility]. Dr. Gibson found e sophageal mass which may require transfer. QUINN Lea Executive Personal Assistant Bong Mei i, MD - 03/03/2013 2:00 PM PST Progress Notes by Bong Ahn MD at 03/03/13 1400 Author: Bong Ahn MD Service: (none) Author Type: Physician Filed: 03/03/131954 Date of Service: 03/03/13 1400 Status: Signed Explosive Ordnance Disposal Manager: Bong Ahn MD (Physician) Related Notes: Original Note by Bong Ahn MD (Physician) filed at 03/03/13 14 09 [facility] Service: Hospitalist Progress Note Hospital Day: LOS: 1 day Post-Op Day: Day of Surgery SUBJECTIVE Patient Summary: Events Overnight: Back from EGD. Denies any nausea, vomiting or abdominal pain. Sligh t cough. No chest pain or SOB. Scheduled Medications ARIPiprazole 15 mg Oral Nightly calcium carbonate 500 mg Oral Daily cloNIDine 0.1 mg Oral 4x Daily fluticasone-salmeterol 1 puff Inhalation Q12H insulin aspart 0-6 Units Subcutaneous Q6H YAMEL lisinopril 20 mg Oral BID nebivolol 10 mg Oral Daily ondansetron 8 mg Intravenous Once [COMPLETED] pantoprazole 80 mg Intravenous Once paroxetine 40 mg Oral QAM polyethylene glycol 4,000 mL Oral Once pravastatin 20 mg Oral Nightly [COMPLETED] sodium chloride 1,000 mL Intravenous Once tiotropium 18 mcg Inhalation Daily [DISCONTINUED] atenolol 200 mg Oral Daily [DISCONTINUED] nebivolol 20 mg Oral Daily Continuous Infusions dextrose pantoprazole 8 mg/hr (03/03/13 0532) sodium chloride 150 mL/hr at 03/03/13 0958 [DISCONTINUED] sodium chloride PRN Medications acetaminophen, acetaminophen, aluminum-magnesium hydroxide-simethicone, dextrose, dextrose, dextrose, diphenhydrAMINE, diphenhydrAMINE, glucagon, glucagon, HYDROcodone-acetaminophen, LORazepam, LORazepam, morphine, morphine, morphine, nitroGLYCERIN, ondansetron, ondansetron, polyethylene glycol, albuterol, zolpidem, [DISCONTINUED] ipratropium-albuterol, [DISCONTINU ED] oxyCODONE-acetaminophen, [DISCONTINUED] oxyCODONE-acetaminophen [DISCONTINUED] oxyCODONE-acetaminophen OBJECTIVE Vital Signs: BP 198/93 | Pulse 66 | Temp 97.8 F (36.6 C) (Oral) | Resp 20 | Ht 1.753 m (5' 9") | Wt 110.814 kg (244 lb 4.8 oz) | BMI 36.06 kg/m2 | SpO2 97% Temp: [97.5 F (36.4 C)-98.6 F (37 C)] 97.8 F (36.6 C) (03/03 1125) BP: (134-198)/(73-100) 198/93 mmHg (03/03 1125) Heart Rate: [57-71] 66 (03/03 1125) Resp: [16-20] 20 (03/03 1125) SpO2: [93 %-99 %] 97 % (03/03 1125) Height: [175.3 cm (5' 9")] 175.3 cm (5' 9") (03/03 4) Weight: [104.781 kg (231 lb)-110.814 kg (244 lb 4.8 oz)] 110.814 kg (244 lb 4.8 oz) (03/03 4) BMI (Calculated): [34.2-36.2] 36.2 (03/03 4) FiO2 : [79 %] 79 % (03/03 1107) Physical Exam Vitals reviewed. Constitutional: He is oriented to person, place, and time. He appears well-developed and we ll-nourished. No distress. HENT: Nose: Nose normal. Mouth/Throat: No oropharyngeal exudate. Eyes: EOM are normal. Pupils are equal, round, and reactive to light. No scleral icterus. Neck: Neck supple. No JVD present. Cardiovascular: [...] is no rebound and no guarding. Musculoskeletal: He exhibits no edema and no tenderness. Neurological: He is alert and oriented to person, place, and time. He has normal reflexes. Skin: Skin is warm and dry. No rash noted. He is not diaphoretic. No erythema. No pallor. DATA CBC: Lab Results Component Value Date WBC 8.2 03/03/2013 RBC 4.46 03/03/2013 HGB 12.5* 03/03/2013 HCT 36.6* 03/03/2013 MCV 82.2 03/03/2013 MCH 28.0 03/03/2013 MCHC 34.0 03/03/2013 RDW 45.9 03/03/2013 PLT 217 03/03/2013 MPV 7.7 03/03/2013 DIFFTYPE AUTOMATED 03/03/2013 CMP: Lab Results Component Value Date NA 137 03/03/2013 K 3.8 03/03/2013 CL 104 03/03/2013 CO2 27 03/03/2013 ANIONGAP 10 03/03/2013 GLUF 208* 03/03/2013 BUN 15 03/03/2013 CREATININE 1.08 03/03/2013 BCR 14 03/03/2013 CA 8.6 03/03/2013 PROT 6.1* 03/03/2013 ALB 3.4* 03/03/2013 GLOB 2.7 03/03/2013 BILITOT 0.4 03/03/2013 ALP 62 03/03/2013 AST 23 03/03/2013 ALT 22 03/03/2013 EGFR >60 03/03/2013 EGD 03/01/2013;- 1.2 cm nodule with bleeding site at GEJ that was causing bleeding. Patient will need endoscopic mucosal resection from [facility]. If this is a true nodule - Mild diffused gastritis - Normal duodenum to the third part - No active bleeding seen. PROBLEM LIST Principal Problem: *GIB (gastrointestinal bleeding) Active Problems: Diabetes mellitus type II Atrial fibrillation HTN (hypertension) WARD (obstructive sleep apnea) Fall at home Anxiety and depression Accelerated hypertension Development delay ARF (acute renal failure) COPD (chronic obstructive pulmonary disease) ASSESSMENT AND PLAN: 1. Upper GI bleeding due to 1.2 cm nodule at GEJ junction. As per Dr. Gibson the patient will n eed endoscopic mucosal resection of the tumor that cannot be done in this hospital, and for that the patient may be transferred to either [facility] or [facility] in [place]. However, the patient has a history of passing bright red blood through the rectum. Hence will need a colonoscopy as well. For that the patient wi ll get preparation, and tomorrow morning Dr. Gibson will perform a colonoscopy. Meanwhile the pa tient will be on b.i.d. dose of Protonix. 2. History of atrial fibrillation in the past. I looked at the EKGs for the last couple of years and every EKG in the system has shown normal sinus rhythm. He is on aspirin and Plavix and both would be kept on hold due to active GI hemorrhage. 3. Acute posthemorrhagic anemia. Mild in nature. I will keep a close watch on hemoglobin an d hematocrit and will transfuse blood if needed. 4. Diabetes mellitus, type 2. We will continue current plan of care and adjust doses of ins ulin as his morning glucose was elevated at 208. 5. Hypertension. Not well controlled and his morning blood pressure was 198/93. He is on li sinopril, nebivolol, and clonidine. I will increase the dose of lisinopril to 40 mg a day an d closely monitor blood pressure. 6. Morbid obesity with BMI of 36.06. He also has a history of obstructive sleep apnea syndr ome. 7. Mild developmental delay. 8. History of anxiety and depression. The patient is on Paxil and on Abilify. 9. History of COPD though the patient denies it. His pulmonary status is stable. Disposition: Code Status: Full Code Bong Ahn MD 03/03/2013 onversion Tra nsaction, Provider Unknown - 03/03/2013 11:17 AM PSTFormatting of this note might be differe nt from the original. Progress Notes by Iliana Sosa RN at 03/03/13 1117 Author: Iliana Sosa RN Service: (none) Author Type: Registered Nurse Filed: 03/03/13 1118 Date of Service: 03/03/13 1117 Status: Signed Explos[employer] Ordn[employer] Disposal Manager: Iliana Sosa RN (Registered Nurse) SBAR Handoff to [facility] Ida Anguiano PT - 03/03/2013 9:45 AM PST Progress Notes by Ida Calvin PT at 03/03/13 0904 Author: Ida Calvin PT Service: (none) Author Type: Physical Therapist Filed: 03/03/13 0947 Date of Service: 03/03/1345 Status: Signed Explos[employer]dn[employer] Disposal Manager: Ida Calvin, PT (Physical Therapist) 03/03/13 0900 PT Last Visit PT Received On 03/03/13 Reason for Treatment Other (comment) (rectal bleeds) Requires PT Follow Up Awaiting tx order Follow up PT Only? No PT Eval/Reassessment Date 03/03/13 Requires PT Follow Up Awaiting tx order Plan Treatment/Interventions Balance training;Bed mobility training;Gait training;Transfer train ing;Therapeutic exercise PT Frequency Follow-up visit only Care Duration (# of days) 1 # of days Home Environment Type of Home Adult family home (Has lived their almost 10 months) Home Exterior Layout Entry steps none Home Interior Layout Lives on main level with bedroom/bathroom Home Equipment Walker front wheeled Additional Comments Used FWW when he broke his leg. Does not use it currently Recommendation Recommendations Return to prior living situation Equipment Recommended None (pt owns FWW as needed) Recommendation Comments Pt appears to be at baseline function. Mild path deviation and impu lsivity with ambulation. Plan to f/u and ensure safe mobility Prior Function Level of [place] Independent with ADLs;Independent with functional mobility;Assist wi th IADLs Lives With Caregiver RUE Assessment RUE Assessment WFL LUE Assessment LUE Assessment WFL RLE Assessment RLE Assessment WFL LLE Assessment LLE Assessment WFL Cognition Overall Cognitive Status WFL (Developmental delay at baseline) Orientation Level Oriented Sensation Light Touch No apparent deficits 03/03/13 0900 PT Last Visit PT Received On 03/03/13 Reason for Treatment Other (comment) (rectal bleeds) Requires PT Follow Up Awaiting tx order Follow up PT Only? No PT Eval/Reassessment Date 03/03/13 Other Comments Comments Pt is a 57 yo male admitted with rectal bleeds and hematemesis. Pt lives in a grou p home, mobilizes without AD at baseline. Pt near baseline function at this time. Pre: 162/8 5, 63 bpm, >95% RA Cognition Overall Cognitive Status WFL (Developmental delay at baseline) Orientation Level Oriented Bed Mobility Supine to Sit Supervision Sit to Supine Supervision Transfers Sit to/from Stand Modified independent Mobility Weight Bearing Status WBAT RLE;WBAT LLE Ambulation Assistance Supervision;Standby assist Maximal Ambulation Distance (feet) 350 Total Ambulation Distance (feet) 350 Distance limited by? Therapist/staff discretion Pattern Alternating;Decreased aaron (mild path deviation, mild impulsivity/fast gait) Assistive Device None Activity Tolerance Nurse Made Aware RN Mel muñoz in hallway observing pt's mobility Plan Treatment/Interventions Balance training;Bed mobility training;Gait training;Transfer train ing;Therapeutic exercise PT Frequency Follow-up visit only Care Duration (# of days) 1 # of days Recommendation Recommendations Return to prior living situation Equipment Recommended None (pt owns FWW as needed) Requires PT Follow Up Awaiting tx order Recommendation Comments Pt appears to be at baseline function. Mild path deviation and impu lsivity with ambulation. Plan to f/u and ensure safe mobility Ida Chacon, PT 03/03/2013 onversion Transact ion, Provider Unknown - 03/03/2013 2:04 AM PSTFormatting of this note might be different fr om the original. Progress Notes by Ema Walker RPH at 03/03/13203 Author: Ema Walker RPH Service: (none) Author Type: Pharmacist Filed: 03/03/13203 Date of Service: 03/03/13203 Status: Signed Expl[employer]dn[employer] Disposal Manager: Ema Walker RPH (Pharmacist) Clinical Pharmacy Note: Renal Monitoring Norah Guzman 57 y.o. male Height: 175.3 cm Weight: 110.8 kg CREATININE: 1.38 mg/dL ABNORMAL (03/02/131844) Estimated creatinine clearance - Cockcroft-Gault CrCl: 71.6 mL/min Pharmacy dosing for renal function per Dr. Chapman. Currently, there are no medications needing to be adjusted. Pharmacy will continue to monit or for changes in medication orders and in renal function and adjust accordingly. Ema Walker PharmD 03/03/2013 2:03 AM onver ivana Transaction, Provider Unknown - 03/02/2013 6:45 PM PST Case Management by QUINN White at 03/02/131844 Author: QUINN White Service: (none) Author Type: Screen Writer Filed: 03/02/13 1845 Date of Service: 03/02/131844 Status: Signed Expl[employer]dn[employer] Disposal Manager: QUINN White (Screen Writer) COLTON alert Rcvd pt with a total of 18 ED visits, referral to [facility] due to number of visits docume nted in this encounter H&P Notes Edenilson Chapman MD - 03/02/2013 11:16 PM PSTFormatting of this note might be dif ferent from the original. H&P by Edenilson Chapman MD at 03/02/13 2119 Author: Edenilson Chapman MD Service: Hospitalist Author Type: Physician Filed: 03/03/13 1325 Date of Service: 03/02/132315 Status: Signed Expl[employer]dn[employer] Disposal Manager: Edenilson Chapman MD (Physician) Related Notes: Original Note by Edenilson Chapman MD (Physician) filed at 03/03/13 0405 [facility] Service: Hospitalist Admission History & Physical Date of Admission: 03/02/2013 Requesting Physician: [facility] Reason for Admission: GIB. History Obtained From: patient, mother CHIEF COMPLAINT: Rectal bleed and hematemesis. HISTORY OF PRESENT ILLNESS The patient is a 57 y.o. male with significant past medical history. The patient was brought in from [facility] for the chief complaint that he has mult iple episodes of rectal bright red bleed. Also he has some hematemesis. The patient unfortun ately is mentally developmentally delayed and is not able to give exact details, but he admi ts he has rectal bleed and also coughing blood. The patient had syncope yesterday and a fall , and he was seen in the emergency room for head trauma with no significant intracranial ble ed. The patient looks slightly dehydrated. He was started on normal saline at 150 mL/hr. Also noted from his home medications, there are some discrepancies, and his heart rate was slightly slow, so I elected to give up on some of his medications including the atenolol 200 mg; apparently that was stopped. And also diltiazem will be on hold since his heart rate is in the 50s. The patient otherwise denies any abdominal pain; no chest pain, no shortness of breath. He looks very comfortable but clearly mildly confused and dehydrated. No other significant comp laint. REVIEW OF SYSTEMS Negative except for pertinent items noted in HPI. Past Medical History Diagnosis Date Diabetes mellitus type II Atrial fibrillation Hypertension Hyperlipidemia Anxiety Depression WARD (obstructive sleep apnea) 08/11/2012 Basal cell carcinoma 09/26/2012 Unspecified visual disturbance Renal failure GIB (gastrointestinal bleeding) 03/02/2013 ARF (acute renal failure) 03/02/2013 COPD (chronic obstructive pulmonary disease) 03/02/2013 Past Surgical History Procedure Date Unlisted procedure [...] upper arm and upper back w/frozen section Immunizations: Influenza: Ordered Pneumoccocal: Not indicated No Known Allergies (Not in a hospital admission) Family History [...] Narrative Lives in alf, IADL, full code PHYSICAL EXAM Vital Signs: BP 155/76 | Pulse 63 | Temp 98.6 F (37 C) (Oral) | Resp 16 | Ht 1.753 m (5' 9") | Wt 10 4.781 kg (231 lb) | BMI 34.10 kg/m2 | SpO2 99% General Appearance: Alert, cooperative, no distress, appears stated age Head: Normocephalic, without obvious abnormality, atraumatic Eyes: PERRL, conjunctiva/corneas clear, EOM's intact, fundi benign, both eyes Ears: Normal TM's and external ear canals, both ears Nose: Nares [...] intact. Normal strength, sensation and reflexes throughout DATA CBC: Lab Results Component Value Date WBC 10.6 03/02/2013 RBC 5.03 03/02/2013 HGB 14.0 03/02/2013 HCT 41.1 03/02/2013 MCV 81.9 03/02/2013 MCH 27.8 03/02/2013 MCHC 33.9 03/02/2013 RDW 46.4 03/02/2013 PLT 289 03/02/2013 MPV 7.8 03/02/2013 DIFFTYPE AUTOMATED 03/02/2013 CMP: Lab Results Component Value Date NA 139 03/02/2013 K 3.9 03/02/2013 CL 102 03/02/2013 CO2 32 03/02/2013 ANIONGAP 9 03/02/2013 GLUF 160* 03/02/2013 BUN 18 03/02/2013 CREATININE 1.38* 03/02/2013 BCR 13 03/02/2013 CA 9.0 03/02/2013 PROT 7.8 03/02/2013 ALB 3.6 03/02/2013 GLOB 4.3 03/02/2013 BILITOT 0.3 03/02/2013 ALP 102 03/02/2013 AST 33 03/02/2013 ALT 35 03/02/2013 EGFR 56* 03/02/2013 PT/INR: Lab Results Component Value Date INR 1.0 03/02/2013 PROBLEM LIST Principal Problem: *GIB (gastrointestinal bleeding) Active Problems: Diabetes mellitus type II Atrial fibrillation HTN (hypertension) WARD (obstructive sleep apnea) Fall at home Anxiety and depression Accelerated hypertension Development delay ARF (acute renal failure) COPD (chronic obstructive pulmonary disease) ASSESSMENT & PLAN 1. GI bleed. Etiology is not clear. The patient will be admitted to the medical floor, kept n.p.o. Will start him on Protonix IV drip because he also has hematemesis. Will consult GI, Dr. Gibson. We tried to page him, but we are still awaiting him to call back, so he needs confi rmation in the morning. In the meantime, will monitor his H H. Current hemoglobin is 14. 2. History of atrial fibrillation. Currently in normal saline, but actually sinus bradycard ia. I would like to hold diltiazem and lower his Bystolic from 20 to 10 mg a day. Also to co nfirm atenolol has been stopped and no need to resume that. In the meantime, will closely hi s monitor his heart rate during this hospital stay. Apparently he is back in sinus rhythm. 3. Diabetes. Will start him on NovoLog sliding scale. 4. Severe hypertension. Currently on clonidine 0.1 mg 4 times a day. Bystolic will be lower ed from 20 to 10 mg. Cardizem will be held since he has significant bradycardia. 5. COPD. Will resume albuterol and Spiriva. 6. Dehydration and acute renal failure. His baseline creatinine is 1.2, now is 1.4. Will st art him on normal saline at 150 mL/hr. 7. Anxiety and depression. Will resume Paxil and Abilify. 8. GI prophylaxis. Protonix IV drip. 9. DVT prophylaxis. Will avoid anticoagulation because of the GI bleed. 10. FULL CODE. Time for admission 70 minutes. Estimated hospital stay 2 nights. Disposition: Admit to medical floor. Code Status: Full Code. Primary Care Physician: TAINA CHAPMAN MD 03/02/2013 documente d in this encounter Procedure Notes Howie Gibson MD - 03/04/2013 1:33 PM PSTFormatting of this note might be different from the bobbi ginal. Procedures by Howie Gibson MD at 03/04/13 8253 Author: Howie Gibson MD Service: Gastroenterology Author Type: Physician Filed: 03/04/13 1336 Date of Service: 03/04/13 8103 Status: Signed Expl[employer]ive [employer]dn[employer] Disposal Manager: Howie Gibson MD (Physician) Procedure Orders: 1. Case Request Operating Room: COLONOSCOPY [[id number]] ordered by Howie Gibson MD at 03/03/13 11 24 [facility] Service: Gastroenterology ENDOSCOPY SUITE PROCEDURE NOTE Colonoscopy Indications: Rectal bleeding Consent: The benefits, risks (bleeding, perforation, infection and reaction to medication) , and alternatives to the procedure were discussed and informed consent was obtained from th e patient. Preparation: EKG, pulse, pulse oximetry, and blood pressure were monitored throughout the procedure. Quality of Bowel Preparation: good Medications: anesthesia monitor Digital Rectal Exam: Normal rectal exam, no perianal fistula or masses or internal masses. Procedure: The Olympus colonoscope was passed through the anus under direct visualization and was advanced with ease to the terminal ileum and cecum, confirmed by appendiceal orifice and ileocecal valve. The scope was withdrawn and the mucosa was carefully examined. The geraldine lity of the preparation was good. The views were good. The patient's toleration of the proce dure was good. There were no apparent complications. Findings: - The terminal ileum was normal - A large ulcer in the rectum with a linear erythema/erosion extending from the ulcer to the proximal rectum. Likely solitary rectal ulcer from constipation or instrumentation. No active bleeding. Biopsied. - Internal hemorrhoids Specimens: colitis Complications: None immediately after the procedure; patient tolerated the procedure well. Impression: - Solitary rectal ulcers - Internal hemorrhoids EBL: None after procedure Recommendations: - [facility] care - Awaiting pathology report. - Diet as tolerate. Miralax to go home. - Ok to d/c home from GI standpoint. Howie Gibson MD 03/04/2013 1:33 PM Howie Zapata M D - 03/03/2013 11:09 AM PST Procedures by Howie Gibson MD at 03/03/13 3868 Author: Howie Gibson MD Service: Gastroenterology Author Type: Physician Filed: 03/03/13 1121 Date of Service: 03/03/13 1102 Status: Addendum Explosive [employer]dn[employer] Disposal Manager: Howie Gibson MD (Physician) Related Notes: Original Note by Howie Gibson MD (Physician) filed at 03/03/13 1113 Procedure Orders: 1. Case Request Operating Room: ESOPHAGOGASTRODUODENOSCOPY [[id number]] ordered by Howie Gibson MD at 03/03/13 0711 [facility] Service: Gastroenterology ENDOSCOPY SUITE PROCEDURE NOTE Esophagogastroduodenoscopy Indications: Hematemesis Consent: The benefits, risks (bleeding, perforation, infection and reaction to medication) , and alternatives to the procedure were discussed and informed consent was obtained from th e patient. Preparation: EKG, pulse, pulse oximetry, and blood pressure were monitored throughout the procedure. Medications: Anesthesia monitor Procedure: The gastroscope was passed through the mouth under direct visualization and was advanced with ease to the 3nd portion of the duodenum. The scope was withdrawn and the muco sa was carefully examined. The views were good. There were no apparent complications. Findings: 1. Normal esophagus. 2. A 1.2 cm nodule/polyp at the GEJ on the gastric cardia t hat has focal area of recent bleeding. No active bleeding. 3. Mild diffused gastritis. 4. No rmal duodenal exam. Specimens: None Complications: None; patient tolerated the procedure well. EBL: None Impression: - 1.2 cm nodule with bleeding site at GEJ that was causing bleeding. Patient will need endoscopic mucosal resection from [facility]. If this is a true nodule - Mild diffused gastritis - Normal duodenum to the third part - No active bleeding seen. Recommendations: - [facility] to [facility] - High dose PPI - Also talked to his mother and she told me he had BRBPR as well. i'm concerning for colon cancer - Will prep for colonoscopy tomorrow. Howie Gibson MD 03/03/2013 11:09 AM documente d in this encounter Consult Notes Howie Gibson MD - 03/03/2013 9:38 AM PSTFormatting of this note might be different from the bobbi ginal. Consult* by Howie Gibson MD at 03/03/13 0957 Author: Howie Gibson MD Service: Gastroenterology Author Type: Physician Filed: 03/03/13 0946 Date of Service: 03/03/13937 Status: Addendum Explos[employer]dn[employer] Disposal Manager: Howie Gibson MD (Physician) Related Notes: Original Note by Howie Gibson MD (Physician) filed at 03/03/13 1801 [facility] Service: Gastroenterology Initial Consult Note Date of Admission: 03/02/2013 Reason for Consultation: Melena, hematemesis Requesting Physician: *Dr. EDENILSON CHAPMAN MD History Obtained From: Patient CHIEF COMPLAINT: hematemesis HISTORY OF PRESENT ILLNESS Patient on NSAIDs, aspirin, plavix, at home presented with hematemesis 2 days ago with BRB and follows by dark stool for 2 days. Patient never had GIB in the past. He has some epigast rodger pain as well. Right now he feels better. No BM since he is here. No diet yet. No f/c/s, no cp, sob. No weight changes in the last year. REVIEW OF SYSTEMS Twelve system reviewed negative except mentioned in the history of present illness. Past Medical History Diagnosis Date Diabetes mellitus [...] 09/12/2012 Procedure: LAPAROSCOPIC - CHOLECYSTECTOMY; Surgeon: Jevon Vagras DO; Location: [facility]; Service: General; Laterality: N/A; Abdominal surgery Cholecystectomy Skin cancer excision 10/10/2012 Procedure: EXCISION - SKIN CANCER; Surgeon: Sy Fierro MD; Location: [facility] ; Service: Plastics; Laterality: Left; upper arm and upper back w/frozen section History Social History Marital Status: Spouse Name: N/A Number of Children: 1 Years of Education: N/A Occupational History Not on file. Social History Main Topics Smoking status: Never Smoker Smokeless tobacco: Never Used Alcohol Use: Yes Comment: occasional Drug Use: No Sexually Active: Not Currently Other Topics Concern Not on file Social History Narrative Lives in alf, IADL, full code No Known Allergies Family History Problem Relation Age of Onset Heart disease Father Heart disease Sister Diabetes type II Sister Prescriptions prior to admission Medication Sig Dispense Refill calcium carbonate (TUMS) 500 MG chewable tablet Take 500-1,000 mg by mouth daily as nee ded. For GERD diltiazem (CARDIZEM CD) 240 MG 24 hr capsule Take 240 mg by mouth daily. ibuprofen (ADVIL,MOTRIN) 200 MG tablet Take 600 mg by mouth every 6 (six) hours as need ed. insulin aspart (NOVOLOG) 100 UNIT/ML injection Inject 3 Units into the skin 3 (three) t imes daily before meals. insulin aspart (NOVOLOG) 100 UNIT/ML injection Inject 0-10 Units into the skin 3 (three ) times daily before meals. Sliding Scale Less than [...] greater than 270 or less than 60 insulin glargine (LANTUS) 100 UNIT/ML injection Inject 10 Units into the skin nightly. lisinopril (PRINIVIL,ZESTRIL) 20 MG tablet Take 20 mg by mouth daily. loperamide (IMODIUM) 2 MG capsule Take 2 mg by mouth as needed. 4 mg after first loose stool, then 2 mg after each further loose stool Not to exceed 8 mg per day. LORazepam (ATIVAN) 0.5 MG tablet Take 0.5 mg by mouth every 6 (six) hours as needed. In dications: Feeling Anxious Albuterol Sulfate (VENTOLIN HFA IN) Inhale 2 puffs into the lungs as needed. ARIPiprazole (ABILIFY) 10 MG tablet Take 15 mg by mouth nightly. cloNIDine (CATAPRES) 0.1 MG tablet Take 0.1 mg by mouth 4 (four) times daily. clopidogrel (PLAVIX) 75 MG tablet Take 75 mg by mouth daily. famotidine (PEPCID) 20 MG tablet Take 1 tablet by mouth 2 (two) times daily. 30 tablet 0 fenofibrate (TRIGLIDE) 160 MG tablet Take 160 mg by mouth daily. fluticasone-salmeterol (ADVAIR DISKUS) 250-50 MCG/DOSE AEPB Inhale 1 puff into the lung s every 12 (twelve) hours. 2 each 1 HYDROcodone-acetaminophen (NORCO) 5-325 MG per tablet Take 1 tablet by mouth every 6 (s ix) hours as needed for Pain. 10 tablet 0 linagliptin (TRADJENTA) 5 MG tablet Take 5 mg by mouth daily. nebivolol (BYSTOLIC) 10 MG tablet Take 20 mg by mouth daily. nitroGLYCERIN (NITROSTAT) 0.[address] 0.4 mg under the tongue every 5 (five) minutes as needed. paroxetine (PAXIL) 40 MG tablet Take 40 mg by mouth every morning. pravastatin (PRAVACHOL) 20 MG tablet Take 20 mg by mouth nightly. ranitidine (ZANTAC) 150 MG tablet Take 150 mg by mouth daily. tiotropium (SPIRIVA) 18 MCG inhalation capsule Inhale 18 mcg into the lungs daily. Scheduled Medications ARIPiprazole 15 mg Oral Nightly calcium carbonate 500 mg Oral Daily cloNIDine 0.1 mg Oral 4x Daily fluticasone-salmeterol 1 puff Inhalation Q12H insulin aspart 0-6 Units Subcutaneous Q6H YAMEL lisinopril 20 mg Oral BID nebivolol 10 mg Oral Daily ondansetron 8 mg Intravenous Once [COMPLETED] pantoprazole 80 mg Intravenous Once paroxetine 40 mg Oral QAM pravastatin 20 mg Oral Nightly [COMPLETED] sodium chloride 1,000 mL Intravenous Once tiotropium 18 mcg Inhalation Daily [DISCONTINUED] atenolol 200 mg Oral Daily [DISCONTINUED] nebivolol 20 mg Oral Daily Continuous Infusions dextrose pantoprazole 8 mg/hr (03/03/13 0532) sodium chloride 150 mL/hr at 03/03/13 0047 [DISCONTINUED] sodium chloride PRN Medications acetaminophen, acetaminophen, aluminum-magnesium hydroxide-simethicone, dextrose, dextrose, dextrose, diphenhydrAMINE, diphenhydrAMINE, glucagon, glucagon, HYDROcodone-acetaminophen, LORazepam, LORazepam, morphine, morphine, morphine, nitroGLYCERIN, ondansetron, ondansetron, polyethylene glycol, albuterol, zolpidem, [DISCONTINUED] ipratropium-albuterol, [DISCONTINU ED] oxyCODONE-acetaminophen, [DISCONTINUED] oxyCODONE-acetaminophen [DISCONTINUED] oxyCODONE-acetaminophen PHYSICAL EXAM Vital Signs: BP 150/80 | Pulse 58 | Temp 98.1 F (36.7 C) (Oral) | Resp 16 | Ht 1.753 m (5' 9") | Wt 110.814 kg (244 lb 4.8 oz) | BMI 36.06 kg/m2 | SpO2 93% Temp: [97.9 F (36.6 C)-98.6 F (37 C)] 98.1 F (36.7 C) (03/03 710) BP: (134-190)/(74-100) 150/80 mmHg (03/03 710) Heart Rate: [57-71] 58 (03/03 710) Resp: [16-20] 16 (03/03 710) SpO2: [93 %-99 %] 93 % (03/03 710) Height: [175.3 cm (5' 9")] 175.3 cm (5' 9") (03/03 4) Weight: [104.781 kg (231 lb)-110.814 kg (244 lb 4.8 oz)] 110.814 kg (244 lb 4.8 oz) (03/03 4) BMI (Calculated): [34.2-36.2] 36.2 (03/03 4) General Appearance: Alert, cooperative, no distress, appears stated age Head: Normocephalic, without obvious abnormality, atraumatic Ears: Normal external ear canals, both ears Nose: no drainage, bleeding, or sinus tenderness Throat: Oral mucosa dry. Neck: Supple, symmetrical, trachea midline, no adenopathy; no carotid bruit or JVD Lungs: Clear to auscultation bilaterally, respirations unlabored Chest Wall: No tenderness or deformity Heart: Regular rate and rhythm, S1 and S2 normal, no murmur, rub or gallop Abdomen: Soft, mild epigastric pain, bowel sounds active all four quadrants, no masses, no organomegaly Extremities: Extremities normal, atraumatic, no cyanosis or edema Skin: Skin color, texture, turgor normal, no rashes or lesions Lymph nodes: Cervical, and facial nodes normal Neurologic: Alert and Oriented x 3 DATA CBC: Lab Results Component Value Date WBC 8.2 03/03/2013 RBC 4.46 03/03/2013 HGB 12.5* 03/03/2013 HCT 36.6* 03/03/2013 MCV 82.2 03/03/2013 MCH 28.0 03/03/2013 MCHC 34.0 03/03/2013 RDW 45.9 03/03/2013 PLT 217 03/03/2013 MPV 7.7 03/03/2013 DIFFTYPE AUTOMATED 03/03/2013 CMP: Lab Results Component Value Date NA 137 03/03/2013 K 3.8 03/03/2013 CL 104 03/03/2013 CO2 27 03/03/2013 ANIONGAP 10 03/03/2013 GLUF 208* 03/03/2013 BUN 15 03/03/2013 CREATININE 1.08 03/03/2013 BCR 14 03/03/2013 CA 8.6 03/03/2013 PROT 6.1* 03/03/2013 ALB 3.4* 03/03/2013 GLOB 2.7 03/03/2013 BILITOT 0.4 03/03/2013 ALP 62 03/03/2013 AST 23 03/03/2013 ALT 22 03/03/2013 EGFR >60 03/03/2013 PT/INR: Lab Results Component Value Date INR 1.0 03/02/2013 Last 3 Troponin: Lab Results Component Value Date TROPONINI <0.02 01/30/2013 TROPONINI <0.020 01/29/2013 TROPONINI <0.020 01/05/2013 HgBA1c: Lab Results Component Value Date HGBA1C 8.2* 03/03/2013 LABGLYC 189 03/03/2013 TSH: Lab Results Component Value Date TSH 6.49* 03/03/2013 Amylase: Lab Results Component Value Date AMYLASE 19* 09/18/2012 AMYLASE 19* 09/18/2012 Lipase: Lab Results Component Value Date LIPASE 121 12/07/2012 PROBLEM LIST Principal Problem: *GIB (gastrointestinal bleeding) Active Problems: Diabetes mellitus type II Atrial fibrillation HTN (hypertension) WARD (obstructive sleep apnea) Fall at home Anxiety and depression Accelerated hypertension Development delay ARF (acute renal failure) COPD (chronic obstructive pulmonary disease) ASSESSMENT & PLAN 1. Hematemesis 2. Melena 3. Acute post hemorrhagic anemia Patient is high risks candidate for GIB, concerning for PUD, small bowel bleed. Rec: 1. NPO 2. PPI gtt 3. Urgent EGD 4. F/u CBC 5. Ok with plavix and aspirin for now. Code Status: Full Code Primary Care Physician: TAINA WASHBURN Thank you for allowing me to participate in the care of this patient. Please call if there are any additional questions. Howie Gibson MD 03/03/2013 9:38 AM documente d in this encounter ED Notes Conversion Transaction, Provider Unknown - 03/02/2013 8:55 PM PSTFormatting of this note m ight be different from the original. ED Notes by Joy Connors RN at 03/02/132054 Author: Joy Connors RN Service: (none) Author Type: Registered Nurse Filed: 03/02/132054 Date of Service: 03/02/132054 Status: Signed Explosive Ordnance Disposal Manager: Joy Connors RN (Registered Nurse) Answered pt's call light, Dumped pt's urinal, dimmed the lights and gave pt a glycerin swab . Joy Connors RN 03/02/132054 hYesica cowart DO - 03/02/2013 7:34 PM PSTFormatting of this note might be different from the o riginal. ED Provider Notes by Yesica Flowers DO at 03/02/131933 Author: Yesica Flowers DO Service: (none) Author Type: Physician Filed: 03/03/13 1442 Date of Service: 03/02/131933 Status: Signed Explosive Ordnance Disposal Manager: Yesica Flowers DO (Physician) [facility] Department of Emergency Medicine 03/02/2013 History of Present Illness Patient Identification Norah Guzman is a 57 y.o. male. Patient information was obtained from patient and caregiver / friend. History/Exam limitations: none. Patient presented to the Emergency Department by: [facility] 1724 Chief Complaint Chief Complaint Patient presents with Rectal Bleeding Hematemesis 19:40. Pt presents to the ED with rectal bleeding and hematemesis. Pt had an episode of dominguez rrhea which had a lot of bright red blood. Pt also had 3 episodes of emesis with bright red blood. Caregiver reports a lot of blood on underwear, pants, bedding, and sheets. Pt also co mplaining of mild lower abdominal discomfort. Onset of symptoms was this afternoon. Severity is described as moderate. Pt did have a fall yesterday where he fell forward and struck his head. He was evaluated in the ED for this and discharged home. Caregiver concerned that he may have landed on his abdomen. No hematuria. No dizziness. Pt is a diabetic and is on insulin. Also has history of HTN. Pt is in a alf due to his general health and his developmental delay. Past Medical History Diagnosis Date [...] times daily before meals. H istorical Provider HYDROcodone-acetaminophen (NORCO) 5-325 MG per tablet Take 1 tablet by mouth every 6 (six) hours as needed for Pain. 02/27/13 03/09/13 Jose Flor MD hydrocodone-acetaminophen (VICODIN ES) 7.5-750 MG per tablet [...] breath. Cardiovascular: Negative for chest pain. Gastrointestinal: Positive for vomiting (with blood), abdominal pain (mild, lower), diarrhe a and blood in stool. Positive for rectal bleeding Genitourinary: Negative for hematuria. Neurological: Negative for dizziness. All other systems reviewed and are negative. Physical Exam BP 167/81 | Pulse 71 | Temp 98.6 F (37 C) (Oral) | Resp 16 | Ht 1.753 m (5' 9") | Wt 10 4.781 kg (231 lb) | BMI 34.10 kg/m2 | SpO2 94% Vitals: hypertensive, otherwise normal Pulse Oximetry Interpretation: Mildly decreased General: Alert, somewhat anxious Eyes: Normal inspection, pupils equal and round, non-icteric ENT: Ears normal Nose normal Pharynx normal [place] and moist mucous membranes Neck: Normal inspection Supple Full ROM Cardiovascular: Normal rate and rhythm Respiratory: No respiratory distress or wheezing, lungs are clear Abdomen: Soft, non-tender, non-distended, hyperactive bowel sounds Rectal: GUAIAC positive, burgundy colored stool, QC passed, male wind energy mechanic present Back: Normal inspection, moves without difficulty Skin: Color normal Warm and dry Extremities: BARNARD, mild pitting edema bilaterally, erythema in palmar creases Neuro: No gross motor/sensory deficit Medical Decision Making and Emergency Department Course ED Department Course 19:53. Pt presents to the ED with rectal bleeding and hematemesis. Pt had an episode of dominguez rrhea which had a lot of bright red blood. Pt also had 3 episodes of emesis with bright red blood. Pt also complaining of mild lower abdominal discomfort. GUAIAC positive on rectal exa m. EKG, CBC, CMP, INR, and PTT ordered. 21:45. Reviewed lab results. Hyperglycemia. Creatinine mildly elevated. CBC normal. Hemoglo bin and Hematocrit normal. 22:28. Pt is not anemic. He is showing no evidence of hemodynamic instability. No peritonea l signs. He will need admission for serial H&H's, observation, and most likely endoscopy melva orrow. Will admit pt at this time and place a call out to the hospitalist. 22:45. Discussed pt's case with Dr. Chapman, hospitalist, who will see the pt. Requests consu lting with GI. 22:51. Informed pt he will be admitted. 23:19. 1000mL IV bolus started. 01:39. Unable to reach Dr. Gibson, outreach and education social worker for GI (this is very unusual for him to not answer h is page). Discussed pt's case with Dr. Nur. He will be happy to come in if pt becomes in un stable tonight. Otherwise Dr. Gibson can see the pt in the morning. Records Reviewed Nursing Notes Old medical records Seen on February 27, 2013 for left arm pain, left leg pain, left facial pain, and left lauren ed chest pain. He was noted to be hypertensive during visit. Glucose 232 at the time. Work u p otherwise entirely negative. Pain improved and pt sent home. Treated with Hydrocodone as o utpatient. Laboratory Evaluation Results Procedure Component Value Ref Range Date/Time PT [[id number]] Collected:03/02/131845 Order Status:Completed Updated:03/02/132029 Specimen Information:Blood INR 1.0 PTT [[id number]] Collected:03/02/131845 Order Status:Completed Updated:03/02/132029 Specimen Information:Blood APTT 26 23 - 32 seconds Complete Metabolic Panel [[id number]] (Abnormal) Collected:03/02/131844 Order Status:Completed Updated:03/02/131909 Specimen Information:Blood SODIUM 139 135 - 143 mmol/L POTASSIUM 3.9 3.5 - 4.9 mmol/L CHLORIDE 102 99 - 109 mmol/L CO2 32 23 - 32 mmol/L ANION GAP AGAP 9 5 - 20 mmol/L GLUCOSE 160 (H) 65 - 99 mg/dL BUN 18 8 - 25 mg/dL CREATININE 1.38 (H) 0.70 - 1.30 mg/dL BUN/CREAT 13 CALCIUM 9.0 8.5 - 10.2 mg/dL TOTAL PROTEIN 7.8 6.3 - 8.2 g/dL Albumin 3.6 3.6 - 5.0 g/dL GLOBULIN 4.3 1.3 - 4.9 g/dL A/G 0.8 (L) 1.0 - 2.4 TBIL 0.3 0.1 - 1.5 mg/dL ALK PHOS 102 35 - 115 U/L AST 33 10 - 45 U/L ALT 35 10 - 65 U/L EGFR 56 (L) >60 mL/min/1.73m2 CBC w Auto Diff [[id number]] (Abnormal) Collected:03/02/131844 Order Status:Completed Updated:03/02/131853 Specimen Information:Blood WBC 10.6 3.8 - 11.0 K/uL RBC 5.03 4.20 - 5.70 M/uL HGB 14.0 13.2 - 17.0 g/dL HCT 41.1 39.0 - 50.0 % MCV 81.9 80.0 - 100.0 fl MCH 27.8 27.0 - 34.0 pg MCHC 33.9 32.0 - 35.5 g/dL RDW SD 46.4 37 - 53 fl PLT 289 150 - 400 K/uL MPV 7.8 fl DIFF TYPE AUTOMATED NEUTROPHILS 60.7 % LYMPHOCYTES 26.9 % MONOCYTES 8.8 % EOSINOPHILS 3.2 % BASOPHILS 0.4 % NEUTROPHILS ABS 6.4 1.9 - 7.4 K/uL LYMPHOCYTES ABS 2.8 1.0 - 3.9 K/uL MONOCYTES ABS 0.9 (H) 0 - 0.8 K/uL EOSINOPHILS ABS 0.3 0 - 0.5 K/uL BASOPHILS ABS 0.0 0 - 0.1 K/uL EKG Evaluation EKG from 18:38 Sinus rhythm without ectopics. Rate: 67 Normal P waves and RICHARD Normal QRS and axis Normal ST and T waves Interpreted by myself at time of service. Yesica Flowers DO ED Diagnoses Final diagnoses Accelerated hypertension Atrial fibrillation Development delay Diabetes mellitus type II GI bleed Hematemesis Rectal bleed Disposition: ED Disposition Admit/Observation Bed request special needs: None Diagnosis?: gi bleed Additional Documentation Procedures Attending Note: Documentation assistance provided by Caty Castaneda (Scribe). Information recorded by the scribe has been reviewed and validated by me. Troy laughlin with its contents. DO Yesica Driscoll DO 03/03/13 1442 onversion Transacti on, Provider Unknown - 03/02/2013 7:00 PM PSTFormatting of this note might be different fro m the original. ED Notes by Kenny Holliday RN at 03/02/131899 Author: Kenny Holliday RN Service: (none) Author Type: Registered Nurse Filed: 03/02/131901 Date of Service: 03/02/131899 Status: Signed Explosive Ordnance Disposal Manager: Kenny Holliday RN (Registered Nurse) Pt reports 3 episodes of emesis, patient describes emesis as bright red blood, in addition pt reports having an episode of diarrhea containing bright red blood as well. Kenny Holliday RN 03/02/131901 onver ivana Transaction, Provider Unknown - 03/02/2013 6:37 PM PST ED Notes by Todd Duarte RN at 03/02/131836 Author: Todd Duarte RN Service: (none) Author Type: Registered Nurse Filed: 03/02/131836 Date of Service: 03/02/131836 Status: Signed Explosive Ordnance Disposal Manager: Todd Duarte RN (Registered Nurse) Bed:09
Expected date:
Expected time:
Means of arrival:
Comments:
onver ivana Transaction, Provider Unknown - 03/02/2013 6:35 PM PST ED Notes by Joy Connors RN at 03/02/131834 Author: Joy Connors RN Service: (none) Author Type: Registered Nurse Filed: 03/02/131835 Date of Service: 03/02/131834 Status: Signed Explosive Ordnance Disposal Manager: Joy Connors RN (Registered Nurse) Pt came in this evening from [facility] for rectal bleeding and blood in his emesis. Pt states this just happened within the last hour. Joy Connors RN 03/02/131835 docume nted in this encounter Plan of Treatment +--------+ + + + + | Date | Type | Specialty | Care Team | Description | +--------+ + + + + | 10/16/ | Anti-coag | Anticoagulation | Brittany Zaragoza | | | 2019 | visit | | [address] | | | | | | [place], | | | | | | [place] [address] | | | | | | [phone] | | | | | | | | +--------+ + + + + documented as of this encounter Procedures + +--------+ + + + | Procedure Name | Priori | Date/Time | Associated Diagnosis | Comments | | | ty | | | | + +--------+ + + + | POC GLUCOSE | Routin | 03/05/2013 | | Results for this | | | e | 11:20 AM | | procedure are in the | | | | PST | | results section. | + +--------+ + + + | EXTERNAL LAB: CBC | Routin | 03/05/2013 | | Results for this | | | e | 5:15 AM | | procedure are in the | | | | PST | | results section. | + +--------+ + + + | PHOSPHORUS | Routin | 03/05/2013 | | Results for this | | | e | 5:15 AM | | procedure are in the | | | | PST | | results section. | + +--------+ + + + | MAGNESIUM | Routin | 03/05/2013 | | Results for this | | | e | 5:15 AM | | procedure are in the | | | | PST | | results section. | + +--------+ + + + | COMPREHENSIVE | Routin | 03/05/2013 | | Results for this | | METABOLIC PANEL | e | 5:15 AM | | procedure are in the | | | | PST | | results section. | + +--------+ + + + | ECG 12 LEAD | Routin | 03/04/2013 | | Results for this | | | e | 5:51 PM | | procedure are in the | | | | PST | | results section. | + +--------+ + + + | TROPONIN I | Routin | 03/04/2013 | | Results for this | | | e | 5:51 PM | | procedure are in the | | | | PST | | results section. | + +--------+ + + + | POC GLUCOSE | Routin | 03/04/2013 | | Results for this | | | e | 4:46 PM | | procedure are in the | | | | PST | | results section. | + +--------+ + + + | POC GLUCOSE | Routin | 03/04/2013 | | Results for this | | | e | 2:24 PM | | procedure are in the | | | | PST | | results section. | + +--------+ + + + | POC GLUCOSE | Routin | 03/04/2013 | | Results for this | | | e | 11:30 AM | | procedure are in the | | | | PST | | results section. | + +--------+ + + + | EXTERNAL LAB: CBC | Routin | 03/04/2013 | | Results for this | | | e | 5:07 AM | | procedure are in the | | | | PST | | results section. | + +--------+ + + + | PHOSPHORUS | Routin | 03/04/2013 | | Results for this | | | e | 5:07 AM | | procedure are in the | | | | PST | | results section. | + +--------+ + + + | MAGNESIUM | Routin | 03/04/2013 | | Results for this | | | e | 5:07 AM | | procedure are in the | | | | PST | | results section. | + +--------+ + + + | COMPREHENSIVE | Routin | 03/04/2013 | | Results for this | | METABOLIC PANEL | e | 5:07 AM | | procedure are in the | | | | PST | | results section. | + +--------+ + + + | TISSUE REQUEST FOR | Routin | 03/04/2013 | | Results for this | | PATHOLOGY (NON-ORD) | e | 12:00 AM | | procedure are in the | | | | PST | | results section. | + +--------+ + + + | EXTERNAL LAB: CBC | Routin | 03/03/2013 | | Results for this | | | e | 5:05 AM | | procedure are in the | | | | PST | | results section. | + +--------+ + + + | LIPID PANEL | Routin | 03/03/2013 | | Results for this | | | e | 5:05 AM | | procedure are in the | | | | PST | | results section. | + +--------+ + + + | TSH | Routin | 03/03/2013 | | Results for this | | | e | 5:05 AM | | procedure are in the | | | | PST | | results section. | + +--------+ + + + | PHOSPHORUS | Routin | 03/03/2013 | | Results for this | | | e | 5:05 AM | | procedure are in the | | | | PST | | results section. | + +--------+ + + + | MAGNESIUM | Routin | 03/03/2013 | | Results for this | | | e | 5:05 AM | | procedure are in the | | | | PST | | results section. | + +--------+ + + + | HEMOGLOBIN A1C | Routin | 03/03/2013 | | Results for this | | | e | 5:05 AM | | procedure are in the | | | | PST | | results section. | + +--------+ + + + | COMPREHENSIVE | Routin | 03/03/2013 | | Results for this | | METABOLIC PANEL | e | 5:05 AM | | procedure are in the | | | | PST | | results section. | + +--------+ + + + | TYPE AND SCREEN | Routin | 03/02/2013 | | Results for this | | | e | 8:00 PM | | procedure are in the | | | | PST | | results section. | + +--------+ + + + | POC GLUCOSE | Routin | 03/02/2013 | | Results for this | | | e | 6:52 PM | | procedure are in the | | | | PST | | results section. | + +--------+ + + + | PTT | Routin | 03/02/2013 | | Results for this | | | e | 6:46 PM | | procedure are in the | | | | PST | | results section. | + +--------+ + + + | PROTIME INR | Routin | 03/02/2013 | | Results for this | | | e | 6:46 PM | | procedure are in the | | | | PST | | results section. | + +--------+ + + + | EXTERNAL LAB: CBC | Routin | 03/02/2013 | | Results for this | | | e | 6:45 PM | | procedure are in the | | | | PST | | results section. | + +--------+ + + + | COMPREHENSIVE | Routin | 03/02/2013 | | Results for this | | METABOLIC PANEL | e | 6:45 PM | | procedure are in the | | | | PST | | results section. | + +--------+ + + + | ECG 12 LEAD | Routin | 03/02/2013 | | Results for this | | | e | 6:38 PM | | procedure are in the | | | | PST | | results section. | + +--------+ + + + documented in this encounter Results POC Glucose (03/05/2013 11:20 AM PST) + + + + + [...] | | | | [facility];[place], [place] | | | | | | [address] | | | | + + + + + + + + | Specimen | + + | | + + + +---------+ + + | Performing | Address | City/State/Zipcode | Phone Number | | Organization | | | | + +---------+ + + | EXTERNAL LAB | | | | + +---------+ + + External Lab: CBC (03/05/2013 5:15 AM PST) + + + + + + | Component | Value | Ref Range | Performed | Pathologist | | | | | At | Signature | + + + + + + | WBC | 8.6Comment: Testing | 3.8 - 11.0 K/uL | EXTERNAL | | | | performed at [facility], [address] | | LAB | | | | [address], | | | | | | [place] [address] | | | | + + + + + + | Non- | 4.87Comment: Testing | 4.20 - 5.70 | EXTERNAL | | | Red Blood | performed at [facility], [address] | M/uL | LAB | | | Cells | [address], | | | | | Counted | [place] [address] | | | | + + + + + + | Hemoglobin | 12.9 (L)Comment: Testing | 13.2 - 17.0 | EXTERNAL | | | | performed at [facility], [address] | g/dL | LAB | | | | [address], | | | | | | [place] [address] | | | | + + + + + + | Hematocrit, | 40.4Comment: Testing | 39.0 - 50.0 % | EXTERNAL | | | POC | performed at [facility], [address] | | LAB | | | | [address], | | | | | | [place] [address] | | | | + + + + + + | MCV | 82.9Comment: Testing | 80.0 - 100.0 fl | EXTERNAL | | | | performed at [facility], [address] | | LAB | | | | [address], | | | | | | [place] [address] | | | | + + + + + + | MCH | 26.4 (L)Comment: Testing | 27.0 - 34.0 pg | EXTERNAL | | | | performed at [facility], [address] | | LAB | | | | [address], | | | | | | [place] [address] | | | | + + + + + + | MCHC | 31.8 (L)Comment: Testing | 32.0 - 35.5 | EXTERNAL | | | | performed at [facility], [address] | g/dL | LAB | | | | [address], | | | | | | [place] [address] | | | | + + + + + + | RDW-CV | 45.9Comment: Testing | 37 - 53 fl | EXTERNAL | | | | performed at [facility], [address] | | LAB | | | | [address], | | | | | | [place] [address] | | | | + + + + + + | Platelet | 230Comment: Testing | 150 - 400 K/uL | EXTERNAL | | | Count | performed at [facility], [address] | | LAB | | | Plasma | [address], | | | | | | [place] [address] | | | | + + + + + + | MPV | 7.8Comment: Testing | fl | EXTERNAL | | | | performed at [facility], [address] | | LAB | | | | [address], | | | | | | [place] [address] | | | | + + + + + + | Differentia | AUTOMATEDComment: | | EXTERNAL | | | l Type | Testing performed at | | LAB | | | | [facility], [address] | | | | | | [place] | | | | | | [address] | | | | + + + + + + | % Segmented | 60.3 | % | EXTERNAL | | | | | | LAB | | | Neutrophils | | | | | + + + + + + | % | 28.9 | % | EXTERNAL | | | Lymphocytes | | | LAB | | + + + + + + | % Monocytes | 8.9 | % | EXTERNAL | | | | | | LAB | | + + + + + + | % | 1.5 | % | EXTERNAL | | | Eosinophils | | | LAB | | + + + + + + | % Basophils | 0.4 | % | EXTERNAL | | | | | | LAB | | + + + + + + | Absolute | 5.2 | 1.9 - 7.4 K/uL | EXTERNAL | | | Segmented | | | LAB | | | Neutrophils | | | | | + + + + + + | Absolute | 2.5 | 1.0 - 3.9 K/uL | EXTERNAL | | | Lymphocytes | | | LAB | | + + + + + + | Absolute | 0.8 | 0 - 0.8 K/uL | EXTERNAL | | | Monocytes | | | LAB | | + + + + + + | Absolute | 0.1 | 0 - 0.5 K/uL | EXTERNAL | | | Eosinophils | | | LAB | | + + + + + + | Absolute | 0.0 | 0 - 0.1 K/uL | EXTERNAL | | | Basophils | | | LAB | | + + + + + + | RBC | Comment: 1+ Hypochromia | | EXTERNAL | | | Morphology | | | LAB | | + [...] | | + +---------+ + + Phosphorus (03/05/2013 5:15 AM PST) + + + + + + | Component | Value | Ref Range | Performed | Pathologist | | | | | At | Signature | + + + + + + | PHOSPHORUS | 3.6Comment: Testing | 2.3 - 4.8 mg/dL | EXTERNAL | | | | performed at [facility], [address] | | LAB | | | | [address], | | | | | | [place] [address] | | | | + + + + + + + + | Specimen | + + | Blood specimen | | (specimen) | + + + +---------+ + + | Performing | Address | City/State/Zipcode | Phone Number | | Organization | | | | + +---------+ + + | EXTERNAL LAB | | | | + +---------+ + + Magnesium (03/05/2013 5:15 AM PST) + + + + + + | Component | Value | Ref Range | Performed | Pathologist | | | | | At | Signature | + + + + + + | Magnesium | 1.7Comment: Testing | 1.7 - 2.4 mg/dL | EXTERNAL | | | | performed at [facility], [address] | | LAB | | | | [address], | | | | | | [place] [address] | | | | + + + [...] + +---------+ + + Comprehensive Metabolic Panel (03/05/2013 5:15 AM PST) + + + + + [...] | | | | | [place] [address] | | | | + + + + + + | K | 3.9Comment: Testing | 3.5 - 4.9 | EXTERNAL | | | | performed at [facility], [address] | mmol/L | LAB | | | | [address], | | | | | | [place] [address] | | | | + + + + + + | Cl | 107Comment: Testing | 99 - 109 mmol/L | EXTERNAL | | | | performed at [facility], [address] | | LAB | | | | [address], | | | | | | [place] [address] | | | | + + + + + + | CO2 | 26Comment: Testing | 23 - 32 mmol/L | EXTERNAL | | | | performed at [facility], [address] | | LAB | | | [address], | | | | | | [place] [address] | | | | + + + + + + | Anion Gap | 10Comment: Testing | 5 - 20 mmol/L | EXTERNAL | | | | performed at [facility], [address] | | LAB | | | | [address], | | | | | | [place] [address] | | | | + + + + + + | Glucose, | 138 (H)Comment: Testing | 65 - 99 mg/dL | EXTERNAL | | | Fasting | performed at [facility], [address] | | LAB | | | | [address], | | | | | | [place] [address] | | | | + + + + + + | BUN | 13Comment: Testing | 8 - 25 mg/dL | EXTERNAL | | | | performed at [facility], [address] | | LAB | | | | [address], | | | | | | [place] [address] | | | | + + + + + + | Creatinine | 1.01Comment: Testing | 0.70 - 1.30 | EXTERNAL | | | | performed at [facility], [address] | mg/dL | LAB | | | | [address], | | | | | | [place] [address] | | | | + + + + + + | BUN/Creatin | 13Comment: Testing | | EXTERNAL | | | ine Ratio | performed at [facility], [address] | | LAB | | | | [address], | | | | | | [place] [address] | | | | + + + + + + | Calcium | 9.0Comment: Testing | 8.5 - 10.2 | EXTERNAL | | | | performed at [facility], [address] | mg/dL | LAB | | | | [address], | | | | | | [place] [address] | | | | + + + + + + | Protein, | 6.1 (L)Comment: Testing | 6.3 - 8.2 g/dL | EXTERNAL | | | Total | performed at [facility], [address] | | LAB | | | | [address], | | | | | | [place] [address] | | | | + + + + + + | Albumin | 3.4 (L)Comment: Testing | 3.6 - 5.0 g/dL | EXTERNAL | | | | performed at [facility], [address] | | LAB | | | | [address], | | | | | | [place] [address] | | | | + + + + + + | Globulin | 2.7Comment: Testing | 1.3 - 4.9 g/dL | EXTERNAL | | | | performed at [facility], [address] | | LAB | | | | [address], | | | | | | [place] [address] | | | | + + + + + + | A/G Ratio | 1.3Comment: Testing | 1.0 - 2.4 | EXTERNAL | | | | performed at [facility], [address] | | LAB | | | | [address], | | | | | | [place] [address] | | | | + + + + + + | Bilirubin | 0.4Comment: Testing | 0.1 - 1.5 mg/dL | EXTERNAL | | | Total | performed at [facility], [address] | | LAB | | | | [address], | | | | | | [place] [address] | | | | + + + + + + | ALP, | 70Comment: Testing | 35 - 115 U/L | EXTERNAL | | | External | performed at [facility], [address] | | LAB | | | | [address], | | | | | | [place] [address] | | | | + + + + + + | AST | 20Comment: Testing | 10 - 45 U/L | EXTERNAL | | | | performed at [facility], [address] | | LAB | | | | [address], | | | | | | [place] [address] | | | | + + + + + + | ALT | 18Comment: Testing | 10 - 65 U/L | EXTERNAL | | | | performed at [facility], [address] | LAB | | | [address], | | | | | | [place] [address] | | | | + + + [...] | | | | | [place] [address] | | | | + + + [...] + +---------+ + + ECG 12 lead (03/04/2013 5:51 PM PST) + + + + + [...] | | | | | | normal variantProlonged | | | | | | QTAbnormal ECGWhen | | | | | | compared with ECG of | | | | | | 02-MAR-2013 18:38,No | | | | | | significant change was | | | | | | foundConfirmed by | | | | | | ROSARIO MITCHELL ([id number]) on | | | | | | 03/04/2013 9:51:24 PM | | | | + + + + + + + + | Specimen | + + | | + + + + + | Narrative | Performed At | + + + | [facility] | EXTERNAL LAB | + + + + +---------+ + + | Performing | Address | City/State/Zipcode | Phone Number | | Organization | | | | + +---------+ + + | EXTERNAL LAB | | | | + +---------+ + + Troponin I (03/04/2013 5:51 PM PST) + + + + + [...] | | | | | | ACUTE DE Testing | | | | | | performed at [facility] [place] [place] | | | | | [facility];[place], [place] | | | | | | [address] | | | | + + + + + + + + | Specimen | + + | Blood specimen | | (specimen) | + + + +---------+ + + | Performing | Address | City/State/Zipcode | Phone Number | | Organization | | | | + +---------+ + + | EXTERNAL LAB | | | | + +---------+ + + POC Glucose (03/04/2013 4:46 PM PST) + + + + + + | Component | Value | Ref Range | Performed | Pathologist | | | | | At | Signature | + + + + + + | Glucose, | 186 (H)Comment: Testing | 65 - 99 mg/dL | EXTERNAL | | | Fingerstick | performed at [facility] [place] | | LAB | | | | [address];[place] | | | | | | [address] | | | | + + + + + + + + | Specimen | + + | | + + + +---------+ + + | Performing | Address | City/State/Zipcode | Phone Number | | Organization | | | | + +---------+ + + | EXTERNAL LAB | | | | + +---------+ + + POC Glucose (03/04/2013 2:24 PM PST) + + + + + + | Component | Value | Ref Range | Performed | Pathologist | | | | | At | Signature | + + + + + + | Glucose, | 151 (H)Comment: Testing | 65 - 99 mg/dL | EXTERNAL | | | Fingerstick | performed at [facility] [place] | | LAB | | | | [address];[place] | | | | | | [address] | | | | + + + + + + + + | Specimen | + + | | + + + +---------+ + + | Performing | Address | City/State/Zipcode | Phone Number | | Organization | | | | + +---------+ + + | EXTERNAL LAB | | | | + +---------+ + + POC Glucose (03/04/2013 11:30 AM PST) + + + + + [...] | LAB | | | | [address];[place], [place] | | | | | | [address] | | | | + + + + + + + + | Specimen | + + | | + + + +---------+ + + | Performing | Address | City/State/Zipcode | Phone Number | | Organization | | | | + +---------+ + + | EXTERNAL LAB | | | | + +---------+ + + External Lab: EVE (03/04/2013 5:07 AM PST) + + + + + [...] | | | | | [place] [address] | | | | + + + + + + | Non- | 5.05Comment: Testing | 4.20 - 5.70 | EXTERNAL | | | Red Blood | performed at [facility], [address] | M/uL | LAB | | | Cells | [address], | | | | | Counted | [place] [address] | | | | + + + + + + | Hemoglobin | 13.1 (L)Comment: Testing | 13.2 - 17.0 | EXTERNAL | | | | performed at [facility], [address] | g/dL | LAB | | | | [address], | | | | | | [place] [address] | | | | + + + + + + | Hematocrit, | 41.6Comment: Testing | 39.0 - 50.0 % | EXTERNAL | | | POC | performed at [facility], [address] | | LAB | | | | [address], | | | | | | [place] [address] | | | | + + + + + + | MCV | 82.4Comment: Testing | 80.0 - 100.0 fl | EXTERNAL | | | | performed at [facility], [address] | | LAB | | | | [address], | | | | | | [place] [address] | | | | + + + + + + | MCH | 26.0 (L)Comment: Testing | 27.0 - 34.0 pg | EXTERNAL | | | | performed at [facility], [address] | | LAB | | | | [address], | | | | | | [place] [address] | | | | + + + + + + | MCHC | 31.5 (L)Comment: Testing | 32.0 - 35.5 | EXTERNAL | | | | performed at [facility], [address] | g/dL | LAB | | | | [address], | | | | | | [place] [address] | | | | + + + + + + | RDW-CV | 44.6Comment: Testing | 37 - 53 fl | EXTERNAL | | | | performed at [facility], [address] | | LAB | | | | [address], | | | | | | [place] [address] | | | | + + + + + + | Platelet | 220Comment: Testing | 150 - 400 K/uL | EXTERNAL | | | Count | performed at [facility], [address] | | LAB | | | Plasma | [address], | | | | | | [place] [address] | | | | + + + + + + | MPV | 7.8Comment: Testing | fl | EXTERNAL | | | | performed at [facility], [address] | | LAB | | | | [address], | | | | | | [place] [address] | | | | + + + + + + | Differentia | AUTOMATEDComment: | | EXTERNAL | | | l Type | Testing performed at | | LAB | | | | [facility], [address] | | | | | | [place] | | | | | | [address] | | | | + + + + + + | % Segmented | 57.8 | % | EXTERNAL | | | | | | LAB | | | Neutrophils | | | | | + + + + + + | % | 29.1 | % | EXTERNAL | | | Lymphocytes | | | LAB | | + + + + + + | % Monocytes | 8.2 | % | EXTERNAL | | | | | | LAB | | + + + + + + | % | 4.3 | % | EXTERNAL | | | Eosinophils | | | LAB | | + + + + + + | % Basophils | 0.6 | % | EXTERNAL | | | | | | LAB | | + + + + + + | Absolute | 4.6 | 1.9 - 7.4 K/uL | EXTERNAL | | | Segmented | | | LAB | | | Neutrophils | | | | | + + + + + + | Absolute | 2.3 | 1.0 - 3.9 K/uL | EXTERNAL | | | Lymphocytes | | | LAB | | + + + + + + | Absolute | 0.6 | 0 - 0.8 K/uL | EXTERNAL [...] + + | RBC | Comment: 1+ Hypochromia | | EXTERNAL | | | Morphology | | | LAB | | + [...] | | + +---------+ + + Phosphorus (03/04/2013 5:07 AM PST) + + + + + + | Component | Value | Ref Range | Performed | Pathologist | | | | | At | Signature | + + + + + + | PHOSPHORUS | 2.5Comment: Testing | 2.3 - 4.8 mg/dL | EXTERNAL | | | | performed at [facility], [address] | | LAB | | | | [address], | | | | | | [place] [address] | | | | + + + + + + + + | Specimen | + + | Blood specimen | | (specimen) | + + + +---------+ + + | Performing | Address | City/State/Zipcode | Phone Number | | Organization | | | | + +---------+ + + | EXTERNAL LAB | | | | + +---------+ + + Magnesium (03/04/2013 5:07 AM PST) + + + + + + | Component | Value | Ref Range | Performed | Pathologist | | | | | At | Signature | + + + + + + | Magnesium | 1.7Comment: Testing | 1.7 - 2.4 mg/dL | EXTERNAL | | | | performed at [facility], [address] | | LAB | | | | [address], | | | | | | [place] [address] | | | | + + + [...] + +---------+ + + Comprehensive Metabolic Panel (03/04/2013 5:07 AM PST) + + + + + + | Component | Value | Ref Range | Performed | Pathologist | | | | | At | Signature | + + + + + + | Na | 135Comment: Testing | 135 - 143 | EXTERNAL | | | | performed at [facility], [address] | mmol/L | LAB | | | | [address], | | | | | | [place] [address] | | | | + + + + + + | K | 3.4 (L)Comment: Testing | 3.5 - 4.9 | EXTERNAL | | | | performed at [facility], [address] | mmol/L | LAB | | | | [address], | | | | | | [place] [address] | | | | + + + + + + | Cl | 106Comment: Testing | 99 - 109 mmol/L | EXTERNAL | | | | performed at [facility], [address] | | LAB | | | | [address], | | | | | | [place] [address] | | | | + + + + + + | CO2 | 27Comment: Testing | 23 - 32 mmol/L | EXTERNAL | | | | performed at [facility], [address] | | LAB | | | | [address], | | | | | | [place] [address] | | | | + + + + + + | Anion Gap | 5Comment: Testing | 5 - 20 mmol/L | EXTERNAL | | | | performed at [facility], [address] | | LAB | | | | [address], | | | | | | [place] [address] | | | | + + + + + + | Glucose, | 189 (H)Comment: Testing | 65 - 99 mg/dL | EXTERNAL | | | Fasting | performed at [facility], [address] | | LAB | | | | [address], | | | | | | [place] [address] | | | | + + + + + + | BUN | 10Comment: Testing | 8 - 25 mg/dL | EXTERNAL | | | | performed at [facility], [address] | | LAB | | | | [address], | | | | | | [place] [address] | | | | + + + + + + | Creatinine | 0.90Comment: Testing | 0.70 - 1.30 | EXTERNAL | | | | performed at [facility], [address] | mg/dL | LAB | | | | [address], | | | | | | [place] [address] | | | | + + + + + + | BUN/Creatin | 11Comment: Testing | | EXTERNAL | | | ine Ratio | performed at [facility], [address] | | LAB | | | | [address], | | | | | | [place] [address] | | | | + + + + + + | Calcium | 8.9Comment: Testing | 8.5 - 10.2 | EXTERNAL | | | | performed at [facility], [address] | mg/dL | LAB | | | | [address], | | | | | | [place] [address] | | | | + + + + + + | Protein, | 6.5Comment: Testing | 6.3 - 8.2 g/dL | EXTERNAL | | | Total | performed at [facility], [address] | | LAB | | | | [address], | | | | | | [place] [address] | | | | + + + + + + | Albumin | 3.7Comment: Testing | 3.6 - 5.0 g/dL | EXTERNAL | | | | performed at [facility], [address] | | LAB | | | | [address], | | | | | | [place] [address] | | | | + + + + + + | Globulin | 2.8Comment: Testing | 1.3 - 4.9 g/dL | EXTERNAL | | | | performed at [facility], [address] | | LAB | | | | [address], | | | | | | [place] [address] | | | | + + + + + + | A/G Ratio | 1.3Comment: Testing | 1.0 - 2.4 | EXTERNAL | | | | performed at [facility], [address] | | LAB | | | | [address], | | | | | | [place] [address] | | | | + + + + + + | Bilirubin | 0.5Comment: Testing | 0.1 - 1.5 mg/dL | EXTERNAL | | | Total | performed at [facility], [address] | | LAB | | | | [address], | | | | | | [place] [address] | | | | + + + + + + | ALP, | 68Comment: Testing | 35 - 115 U/L | EXTERNAL | | | External | performed at [facility], [address] | | LAB | | | | [address], | | | | | | [place] [address] | | | | + + + + + + | AST | 27Comment: Testing | 10 - 45 U/L | EXTERNAL | | | | performed at [facility], [address] | | LAB | | | | [address], | | | | | | [place] [address] | | | | + + + + + + | ALT | 26Comment: Testing | 10 - 65 U/L | EXTERNAL | | | | performed at [facility], [address] | | LAB | | | | [address] [facility], | | | | | | [place] [address] | | | | + + + [...] | | | | | | at [facility], [address] | | | | | | [address] [facility], | | | | | | [place] [address] | | | | + + + [...] +---------+ + + Tissue Request For Pathology (03/04/2013 12:00 AM PST) + + | Specimen | + + | | + + + + + | Narrative | Performed At | + + + | CASE: [id number] PATIENT: NORAH SIMÓN Surgical Pathology Report | EXTERNAL LAB | | PATHOLOGIC DIAGNOSIS: Rectum, biopsies: - Fragments of | | | rectal epithelium demonstrating changes consistent with ischemia. | | | - Fibrinopurulent exudate is identified, consistent with | | | ulceration. Comment: The ischemia may result from a compromise to | | | the mucosal blood flow or vasculitis. It also complicates some | | | infections (including CMV, Clostridium difficile, and | | | enterohemorrhagic E. coli, and drugs that can cause ischemic-type | | | damage (e.g., vasopressors, oral contraceptives and NSAIDs). No viral | | | inclusions are seen. There is no evidence of dysplasia or | | | malignancy. CLINICAL HISTORY: 03/04/2013 at 1325 H. Rectal | | | bleeding, likely solitary rectal ulcer. GROSS DESCRIPTION: | | | The specimen is received in formalin labeled "Norah Guzman" and | | | designated "Rectal ulcer" consists of three fragments of reddish-fraga | | | soft tissue, which measures 0.9 x 0.5 x 0.3 cm in aggregate. The | | | entire specimen is submitted in one cassette. TWK:[id number] | | | MICROSCOPIC EXAMINATION: Histologic sections of all submitted | | | blocks are examined by light microscopy. These findings, together | | | with the gross examination, support the pathologic diagnosis. | | | This report has been prepared using a voice recognition system. The | | | report was reviewed for accuracy, however, sound-alike word errors, | | | addition and/or deletions may occur. If there is any question about | | | this report please contact the originating pathologist. | | | Philip Richard MD Electronically signed Mar 05, 2013 3:31:10PM | | + + + + +---------+ + + | Performing | Address | City/State[facility] | Phone Number | | Organization | | | | + +---------+ + + | EXTERNAL LAB | | | | + +---------+ + + External Lab: CBC (03/03/2013 5:05 AM PST) + + + + + [...] | | | | | [place] [address] | | | | + + + + + + | Non- | 4.46Comment: Testing | 4.20 - 5.70 | EXTERNAL | | | Red Blood | performed at [facility], [address] | M/uL | LAB | | | Cells | [address], | | | | | Counted | [place] [address] | | | | + + + + + + | Hemoglobin | 12.5 (L)Comment: Testing | 13.2 - 17.0 | EXTERNAL | | | | performed at [facility], [address] | g/dL | LAB | | | | [address], | | | | | | [place] [address] | | | | + + + + + + | Hematocrit, | 36.6 (L)Comment: Testing | 39.0 - 50.0 % | EXTERNAL | | | POC | performed at [facility], [address] | | LAB | | | | [address], | | | | | | [place] [address] | | | | + + + + + + | MCV | 82.2Comment: Testing | 80.0 - 100.0 fl | EXTERNAL | | | | performed at [facility], [address] | | LAB | | | | [address], | | | | | | [place] [address] | | | | + + + + + + | MCH | 28.0Comment: Testing | 27.0 - 34.0 pg | EXTERNAL | | | | performed at [facility], [address] | | LAB | | | | [address], | | | | | | [place] [address] | | | | + + + + + + | MCHC | 34.0Comment: Testing | 32.0 - 35.5 | EXTERNAL | | | | performed at [facility], [address] | g/dL | LAB | | | | [address], | | | | | | [place] [address] | | | | + + + + + + | RDW-CV | 45.9Comment: Testing | 37 - 53 fl | EXTERNAL | | | | performed at [facility], [address] | | LAB | | | | [address], | | | | | | [place] [address] | | | | + + + + + + | Platelet | 217Comment: Testing | 150 - 400 K/uL | EXTERNAL | | | Count | performed at [facility], [address] | | LAB | | | Plasma | [address], | | | | | | [place] [address] | | | | + + + + + + | MPV | 7.7Comment: Testing | fl | EXTERNAL | | | | performed at [facility], [address] | | LAB | | | | [address], | | | | | | [place] [address] | | | | + + + + + + | Differentia | AUTOMATEDComment: | | EXTERNAL | | | l Type | Testing performed at | | LAB | | | | [facility], [address] | | | | | | [place] | | | | | | [address] | | | | + + + + + + | % Segmented | 49.4 | % | EXTERNAL | | | | | | LAB | | | Neutrophils | | | | | + + + + + + | % | 35.4 | % | EXTERNAL | | | Lymphocytes | | | LAB | | + + + + + + | % Monocytes | 10.5 | % | EXTERNAL | | | | | | LAB | | + + + + + + | % | 4.0 | % | EXTERNAL | | | Eosinophils | | | LAB | | + + + + + + | % Basophils | 0.7 | % | EXTERNAL | | | | | | LAB | | + + + + + + | Absolute | 4.1 | 1.9 - 7.4 K/uL | EXTERNAL | | | Segmented | | | LAB | | | Neutrophils | | | | | + + + + + + | Absolute | 2.9 | 1.0 - 3.9 K/uL | EXTERNAL [...] | | + +---------+ + + TSH (03/03/2013 5:05 AM PST) + + + + + + | Component | Value | Ref Range | Performed | Pathologist | | | | | At | Signature | + + + + + + | TSH | 6.49 (H)Comment: Testing | 0.45 - 5.10 | EXTERNAL | | | | performed at [facility], [address] | uIU/mL | LAB | | | | [address], | | | | | | [place] [address] | | | | + + + + + + + + | Specimen | + + | Blood specimen | | (specimen) | + + + +---------+ + + | Performing | Address | City/State/Zipcode | Phone Number | | Organization | | | | + +---------+ + + | EXTERNAL LAB | | | | + +---------+ + + Phosphorus (03/03/2013 5:05 AM PST) + + + + + + | Component | Value | Ref Range | Performed | Pathologist | | | | | At | Signature | + + + + + + | PHOSPHORUS | 3.0Comment: Testing | 2.3 - 4.8 mg/dL | EXTERNAL | | | | performed at [facility], [address] | | LAB | | | | [address], | | | | | | [place] [address] | | | | + + + + + + + + | Specimen | + + | Blood specimen | | (specimen) | + + + +---------+ + + | Performing | Address | City/State/Zipcode | Phone Number | | Organization | | | | + +---------+ + + | EXTERNAL LAB | | | | + +---------+ + + Magnesium (03/03/2013 5:05 AM PST) + + + + + [...] | | | | | [place] [address] | | | | + + + + + + + + | Specimen | + + | Blood specimen | | (specimen) | + + + +---------+ + + | Performing | Address | City/State/Zipcode | Phone Number | | Organization | | | | + +---------+ + + | EXTERNAL LAB | | | | + +---------+ + + Hemoglobin A1C (03/03/2013 5:05 AM PST) + + + + + + | Component | Value | Ref Range | Performed | Pathologist | | | | | At | Signature | + + + + + + | Hemoglobin | 8.2 (H)Comment: The | 4.0 - 6.0 % | EXTERNAL | | | A1c | [employer] | | LAB | | | [...] | | | | | performed at [facility], [address] | | | | | [address], | | | | | | [place] [address] | | | | + + + + + + | Glycohemogl | 189Comment: The ADA | mg/dL | EXTERNAL | [...] | | | | | performed at [facility], [address] | | | | | | [address], | | | | | | [place] [address] | | | | + + + + + + + + | Specimen | + + | Blood specimen | | (specimen) | + + + +---------+ + + | Performing | Address | City/State/Zipcode | Phone Number | | Organization | | | | + +---------+ + + | EXTERNAL LAB | | | | + +---------+ + + Lipid Panel (03/03/2013 5:05 AM PST) + + + + + + | Component | Value | Ref Range | Performed | Pathologist | | | | | At | Signature | + + + + + + | Cholesterol | 118Comment: Testing | mg/dL | EXTERNAL | | | | performed at [facility], [address] | | LAB | | | | [address], | | | | | | [place] [address] | | | | + + + + + + | Triglycerid | 141Comment: Testing | mg/dL | EXTERNAL | | | es | performed at [facility], [address] | | LAB | | | | [address], | | | | | | [place] [address] | | | | + + + + + + | HDL | 24 (L)Comment: Testing | mg/dL | EXTERNAL | | | | performed at [facility], [address] | | LAB | | | | [address], | | | | | | [place] [address] | | | | + + + + + + | LDL, | 66Comment: Testing | mg/dL | EXTERNAL | | | Calculated | performed at [facility], [address] | | LAB | | | | [address], | | | | | | [place] [address] | | | | + + + [...] + +---------+ + + Comprehensive Metabolic Panel (03/03/2013 5:05 AM PST) + + + + + [...] | | | | | [place] [address] | | | | + + + + + + | K | 3.8Comment: Testing | 3.5 - 4.9 | EXTERNAL | | | | performed at [facility], [address] | mmol/L | LAB | | | | [address], | | | | | | [place] [address] | | | | + + + + + + | Cl | 104Comment: Testing | 99 - 109 mmol/L | EXTERNAL | | | | performed at [facility], [address] | | LAB | | | | [address], | | | | | | [place] [address] | | | | + + + + + + | CO2 | 27Comment: Testing | 23 - 32 mmol/L | EXTERNAL | | | | performed at [facility], [address] | | LAB | | | | [address], | | | | | | [place] [address] | | | | + + + + + + | Anion Gap | 10Comment: Testing | 5 - 20 mmol/L | EXTERNAL | | | | performed at [facility], [address] | | LAB | | | | [address], | | | | | | [place] [address] | | | | + + + + + + | Glucose, | 208 (H)Comment: Testing | 65 - 99 mg/dL | EXTERNAL | | | Fasting | performed at [facility], [address] | | LAB | | | | [address], | | | | | | [place] [address] | | | | + + + + + + | BUN | 15Comment: Testing | 8 - 25 mg/dL | EXTERNAL | | | | performed at [facility], [address] | | LAB | | | | [address], | | | | | | [place] [address] | | | | + + + + + + | Creatinine | 1.08Comment: Testing | 0.70 - 1.30 | EXTERNAL | | | | performed at [facility], [address] | mg/dL | LAB | | | | [address], | | | | | | [place] [address] | | | | + + + + + + | BUN/Creatin | 14Comment: Testing | | EXTERNAL | | | ine Ratio | performed at [facility], [address] | | LAB | | | | [address], | | | | | | [place] [address] | | | | + + + + + + | Calcium | 8.6Comment: Testing | 8.5 - 10.2 | EXTERNAL | | | | performed at [facility], [address] | mg/dL | LAB | | | | [address], | | | | | | [place] [address] | | | | + + + + + + | Protein, | 6.1 (L)Comment: Testing | 6.3 - 8.2 g/dL | EXTERNAL | | | Total | performed at [facility], [address] | | LAB | | | | [address], | | | | | | [place] [address] | | | | + + + + + + | Albumin | 3.4 (L)Comment: Testing | 3.6 - 5.0 g/dL | EXTERNAL | | | | performed at [facility], [address] | | LAB | | | | [address], | | | | | | [place] [address] | | | | + + + + + + | Globulin | 2.7Comment: Testing | 1.3 - 4.9 g/dL | EXTERNAL | | | | performed at [facility], [address] | | LAB | | | [address], | | | | | | [place] [address] | | | | + + + + + + | A/G Ratio | 1.3Comment: Testing | 1.0 - 2.4 | EXTERNAL | | | | performed at [facility], [address] | | LAB | | | | [address], | | | | | | [place] [address] | | | | + + + + + + | Bilirubin | 0.4Comment: Testing | 0.1 - 1.5 mg/dL | EXTERNAL | | | Total | performed at [facility], [address] | | LAB | | | | [address], | | | | | | [place] [address] | | | | + + + + + + | ALP, | 62Comment: Testing | 35 - 115 U/L | EXTERNAL | | | External | performed at [facility], [address] | | LAB | | | | [address], | | | | | | [place] [address] | | | | + + + + + + | AST | 23Comment: Testing | 10 - 45 U/L | EXTERNAL | | | | performed at [facility], [address] | | LAB | | | | [address], | | | | | | [place] [address] | | | | + + + + + + | ALT | 22Comment: Testing | 10 - 65 U/L | EXTERNAL | | | | performed at [facility], [address] | | LAB | | | | [address], | | | | | | [place] [address] | | | | + + + [...] | | | | | | at [facility], [address] | | | | | | [address], | | | | | | [place] [address] | | | | + + + + + + + + | Specimen | + + | Blood specimen | | (specimen) | + + + +---------+ + + | Performing | Address | City/State/Zipcode | Phone Number | | Organization | | | | + +---------+ + + | EXTERNAL LAB | | | | + +---------+ + + Type and Screen (03/02/2013 8:00 PM PST) + + + + + [...] | LAB | | | | [address];[place] [address] | | | | + + + + + + | Antibody | NEGATIVE | | EXTERNAL | | | Screen | | | LAB | | + + + + + + | Antibody | Testing performed at | | EXTERNAL | | | Screen | [facility];[address] | | LAB | | | | [address];[place] [address] | | | | + + + + + + | BB BAND | [id number] | | EXTERNAL | | | | | | LAB | | + + + + + + | BB BAND | Testing performed at | | EXTERNAL | | | | [facility] [place] | | LAB | | | | [address];[place] [address] | | | | + + + + + + + + | Specimen | + + | Blood specimen | | (specimen) | + + + +---------+ + + | Performing | Address | City/State/Zipcode | Phone Number | | Organization | | | | + +---------+ + + | EXTERNAL LAB | | | | + +---------+ + + POC Glucose (03/02/2013 6:52 PM PST) + + + + [...] | LAB | | | [address], [place] | | | | | | [address] | | | | + + + + + + + + | Specimen | + + | | + + + +---------+ + + | Performing | Address | City/State/Zipcode | Phone Number | | Organization | | | | + +---------+ + + | EXTERNAL LAB | | | | + +---------+ + + PTT (03/02/2013 6:46 PM PST) + + + + + + | Component | Value | Ref Range | Performed | Pathologist | | | | | At | Signature | + + + + + + | aPTT, | 26Comment: Testing | 23 - 32 seconds | EXTERNAL | | | Patient | performed at [facility] [place] | LAB | | | | [address];[place] | | | | | | [address] | | | | + + + + + + + + | Specimen | + + | Blood specimen | | (specimen) | + + + +---------+ + + | Performing | Address | City/State/Zipcode | Phone Number | | Organization | | | | + +---------+ + + | EXTERNAL LAB | | | | + +---------+ + + Protime INR (03/02/2013 6:46 PM PST) + + + + + [...] | | | | performed at [facility] [place] | | | | | | [facility];[place], [place] | | | | | | [address] | | | | + + + [...] + +---------+ + + External Lab: CBC (03/02/2013 6:45 PM PST) + + + + + + | Component | Value | Ref Range | Performed | Pathologist | | | | | At | Signature | + + + + + + | WBC | 10.6Comment: Testing | 3.8 - 11.0 K/uL | EXTERNAL | | | | performed at [facility] [place] | | LAB | | | | [address];[place] | | | | | | [address] | | | | + + + + + + | Non- | 5.03Comment: Testing | 4.20 - 5.70 | EXTERNAL | | | Red Blood | performed at [facility] [place] | M/uL | LAB | | | Cells | [address];[place] | | | | | Counted | [id number] | | | | + + + + + + | Hemoglobin | 14.0Comment: Testing | 13.2 - 17.0 | EXTERNAL | | | | [place] [facility] [place] [place] [place];888 | g/dL | LAB | | | | [address];[place] | | | | | | [address] | | | | + + + + + + | Hematocrit, | 41.1Comment: Testing | 39.0 - 50.0 % | EXTERNAL | | | POC | performed at [facility] [place] | | LAB | | | | [address];[place] | | | | | | [address] | | | | + + + + + + | MCV | 81.9Comment: Testing | 80.0 - 100.0 fl | EXTERNAL | | | | performed at [facility] [place] | | LAB | | | | [address];[place] | | | | | | [address] | | | | + + + + + + | MCH | 27.8Comment: Testing | 27.0 - 34.0 pg | EXTERNAL | | | | performed at [facility] [place] | | LAB | | | | [address];[place] | | | | | | [address] | | | | + + + + + + | MCHC | 33.9Comment: Testing | 32.0 - 35.5 | EXTERNAL | | | | performed at [facility] [place] | g/dL | LAB | | | | [address];[place] | | | | | | [address] | | | | + + + + + + | RDW-CV | 46.4Comment: Testing | 37 - 53 fl | EXTERNAL | | | | performed at [facility] [place] | | LAB | | | | [address];[place] | | | | | | [address] | | | | + + + + + + | Platelet | 289Comment: Testing | 150 - 400 K/uL | EXTERNAL | | | Count | performed at [facility] [place] | | LAB | | | Plasma | [address];[place] | | | | | | [address] | | | | + + + + + + | MPV | 7.8Comment: Testing | fl | EXTERNAL | | | | performed at [facility] [place] | | LAB | | | | [address];[place] | | | | | | [address] | | | | + + + + + + | Differentia | AUTOMATEDComment: | | EXTERNAL | | | l Type | Testing performed at | | LAB | | | | [facility] [place] | [address];[place] [address] | | | | + + + + + + | % Segmented | 60.7 | % | EXTERNAL | | | | | | LAB | | | Neutrophils | | | | | + + + + + + | % | 26.9 | % | EXTERNAL | | | Lymphocytes | | | LAB | | + + + + + + | % Monocytes | 8.8 | % | EXTERNAL | | | | | | LAB | | + + + + + + | % | 3.2 | % | EXTERNAL | | | Eosinophils | | | LAB | | + + + + + + | % Basophils | 0.4 | % | EXTERNAL | | | | | | LAB | | + + + + + + | Absolute | 6.4 | 1.9 - 7.4 K/uL | EXTERNAL [...] + +---------+ + + Comprehensive Metabolic Panel (03/02/2013 6:45 PM PST) + + + + + + | Component | Value | Ref Range | Performed | Pathologist | | | | | At | Signature | + + + + + + | Na | 139Comment: Testing | 135 - 143 | EXTERNAL | | | | performed at [facility] [place] | mmol/L | LAB | | | | [address];[place] | | | | | | [address] | | | | + + + + + + | K | 3.9Comment: Testing | 3.5 - 4.9 | EXTERNAL | | | | performed at [facility] [place] | mmol/L | LAB | | | | [address];[place] | | | | | | [address] | | | | + + + + + + | Cl | 102Comment: Testing | 99 - 109 mmol/L | EXTERNAL | | | | performed at [facility] [place];[address] | | LAB | | | | [address];[place] | | | | | | [address] | | | | + + + + + + | CO2 | 32Comment: Testing | 23 - 32 mmol/L | EXTERNAL | | | | performed at [facility] [place];[address] | | LAB | | | | [address];[place] | | | | | | [address] | | | | + + + + + + | Anion Gap | 9Comment: Testing | 5 - 20 mmol/L | EXTERNAL | | | | performed at [facility] [place];[address] | | LAB | | | | [address];[place] | | | | | | [address] | | | | + + + + + + | Glucose, | 160 (H)Comment: Testing | 65 - 99 mg/dL | EXTERNAL | | | Fasting | performed at [facility] [place];[address] | | LAB | | | | [address];[place] | | | | | | [address] | | | | + + + + + + | BUN | 18Comment: Testing | 8 - 25 mg/dL | EXTERNAL | | | | performed at [facility] [place];[address] | | LAB | | | | [address];[place] | | | | | | [address] | | | | + + + + + + | Creatinine | 1.38 (H)Comment: Testing | 0.70 - 1.30 | EXTERNAL | | | | performed at [facility] [place] | mg/dL | LAB | | | | [address];[place] | | | | | | [address] | | | | + + + + + + | BUN/Creatin | 13Comment: Testing | | EXTERNAL | | | ine Ratio | performed at [facility] [place];[address] | | LAB | | | | [address];[place] | | | | | | [address] | | | | + + + + + + | Calcium | 9.0Comment: Testing | 8.5 - 10.2 | EXTERNAL | | | | performed at [facility] [place] | mg/dL | LAB | | | | [address];[place] | | | | | | [address] | | | | + + + + + + | Protein, | 7.8Comment: Testing | 6.3 - 8.2 g/dL | EXTERNAL | | | Total | performed at [facility] [place];[address] | | LAB | | | | [address];[place] | | | | | | [address] | | | | + + + + + + | Albumin | 3.6Comment: Testing | 3.6 - 5.0 g/dL | EXTERNAL | | | | performed at [facility] [place];[address] | | LAB | | | | [address];[place] | | | | | | [address] | | | | + + + + + + | Globulin | 4.3Comment: Testing | 1.3 - 4.9 g/dL | EXTERNAL | | | | performed at [facility] [place];[address] | | LAB | | | | [address];[place] | | | | | | [address] | | | | + + + + + + | A/G Ratio | 0.8 (L)Comment: Testing | 1.0 - 2.4 | EXTERNAL | | | | performed at [facility] [place];[address] | | LAB | | | | [address];[place] | | | | | | [address] | | | | + + + + + + | Bilirubin | 0.3Comment: Testing | 0.1 - 1.5 mg/dL | EXTERNAL | | | Total | performed at [facility] [place];[address] | | LAB | | | | [address];[place] | | | | | | [address] | | | | + + + + + + | ALP, | 102Comment: Testing | 35 - 115 U/L | EXTERNAL | | | External | performed at [facility] [place];[address] | | LAB | | | | [address];[place] | | | | | | [address] | | | | + + + + + + | AST | 33Comment: Testing | 10 - 45 U/L | EXTERNAL | | | | performed at [facility] [place];[address] | | LAB | | | | [address];[place] | | | | | | [address] | | | | + + + + + + | ALT | 35Comment: Testing | 10 - 65 U/L | EXTERNAL | | | | performed at [facility] [place];[address] | | LAB | | | | [address];[place], [place] | | | | | | [address] | | | | + + + + + + | Estimated | 56 (L)Comment: GFR <60: | mL/min/1.73m2 | EXTERNAL [...] | | | | | at [facility] [place];[address];[place] [address] | | | | + + + [...] + +---------+ + + ECG 12 lead (03/02/2013 6:38 PM PST) + + + + + [...] of | | | | | | 27-FEB-2013 02:56,No | | | | | | significant [...] | | | | | | on 03/03/2013 7:13:50 AM | | | | | | | | | | + + + + + + + + | Specimen | + + | | + + + + + | Narrative | Performed At | + + + | [facility] | EXTERNAL LAB | + + + + +---------+ + + | Performing | Address | City/State/Zipcode | Phone Number | | Organization | | | | + +---------+ + + | EXTERNAL LAB | | | | + +---------+ + + documented in this encounter Visit Diagnoses + + | Diagnosis | + + | GIB (gastrointestinal bleeding) Hemorrhage of gastrointestinal tract, unspecified | + + | WARD (obstructive sleep apnea) Obstructive sleep apnea (adult) (pediatric) | + + | GI bleed Hemorrhage of gastrointestinal tract, unspecified | + + | Hematemesis | + + | Rectal bleed Hemorrhage of rectum and anus | + + | Accelerated hypertension Essential hypertension, malignant | + + | Anxiety and depression Dysthymic disorder | + + | ARF (acute renal failure) (HCC) Acute kidney failure, unspecified | + + | Atrial fibrillation (HCC) Atrial fibrillation | + + | Development delay Unspecified delay in development | + + | Diabetes mellitus type II Type II or unspecified type diabetes mellitus without | | mention of complication, not stated as uncontrolled | + + | Fall at home Unspecified fall | + + | HTN (hypertension) Unspecified essential hypertension | + + documented in this encounter
--- OUTSIDE RECORDS SUMMARY | ~2019-10-12 | XMS | Encounter Summary ---
Demographics + + + | Address | [address] | | | [place] [address] | + + + | Home Phone [...] + | Sammi Kohler | ECON | [place] [address] | | + + + + + Care Team Providers + +------+ + | Care Filler Shredding Machine Loader Name | Role | Phone | + +------+ + PCP | Unavailable | + +------+ + Encounter Details +--------+ + + + + | Date | Type | Department | Care Team | Description | +--------+ + + + + | 11/22/ | Emergency | [facility] | Sona Chen MD | Chest wall pain; | | 2015 - | | [facility]ICAL [facility]ENTER | [address] | Nausea | | | | EMERGENCY CENTER | [place] [address] | | | 11/23/ | | [address] | [phone] | | | 2015 | | [place], [place] | | | | | | [address] | | | | | | [phone] | | | +--------+ + + + [...] 11/23/14125 Date of Service: 11/23/14125 Status: Signed Pharmacy Innovation Assistant: John Philippe RN (Registered Nurse) R AC IV removed. John Philippe RN 11/23/14125 Sona Bledsoe MD - 11/22/2014 11:42 PM PDTFormatting of this note might be different from the origin al. ED Provider Notes by Sona Chen MD at 11/22/14 5334 Author: Sona Chen MD Service: (none) Author Type: Physician Filed: 11/23/14 0607 Date of Service: 11/22/142341 Status: Signed Pharmacy Innovation Assistant: Sona Chen MD (Physician) Procedure Orders: 1. Interpretation for ED EKG [[id number]] ordered by Sona Chen MD at 11/23/14 0528 [facility] Department of Emergency Medicine History of [...] Vargas DO; Location: [facility] MAIN OR; Service: General; Laterality: N/A; Abdominal surgery Cholecystectomy Skin cancer excision 10/10/2012 Procedure: EXCISION - SKIN CANCER; Surgeon: Sy Fierro MD; Location: [facility] MAIN OR ; Service: Plastics; Laterality: Left; upper arm and upper back w/frozen section Esophagogastroduodenoscopy 03/03/2013 Procedure: ESOPHAGOGASTRODUODENOSCOPY; Surgeon: Howie Gibson MD; Location: [facility] ENDOSCOPY; S ervice: Gastroenterology; Laterality: N/A; Colonoscopy 03/04/2013 Procedure: COLONOSCOPY; Surgeon: Howie Gibson MD; Location: [facility] ENDOSCOPY; Service: Gastroe nterology; Laterality: N/A; Upper gastrointestinal endoscopy Skin biopsy Hernia repair 07/03/2013 Procedure: LAPAROSCOPIC - HERNIA - INCISIONAL; Surgeon: Jevon Vargas DO; Location: [facility] MAIN OR; Service: General; Laterality: N/A; Skin lesion excision Left 05/05/2014 Procedure: EXCISION - LESION - FROZEN SECTION; Surgeon: Sy Fierro MD; Location: [facility] MAIN OR; Service: Plastics; Laterality: Left; forearm Prior to Admission medications Medication Sig Start Date End Date Taking? Authorizing Provider Albuterol Sulfate (VENTOLIN HFA IN) Inhale 2 puffs into the lungs as needed. 108 mcg/act Historical Provider Wwurk-P-Qurpncjugnkgh (BEANO) TABS Take 150 Units by mouth [...] 100 mg by mouth nightly. Historical Provider qpdxvwwgn-cbpgarzd-bvssmzkqx hydroxide-simethicone Take 40 mLs by mouth daily [...] Lives alone x 1 wk, moved from [facility], , 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 2 falls [...] seen multiple times for CP in the [facility]. He had cardiac cath a [...] Component Value Ref Range Date/Time Cardiac Panel [[id number]] (Abnormal) Collected: 11/22/14 2340 Order Status: Completed [...] ng/mL CK-MB Index 2.8 POC cardiac troponin [[id number]] Collected: 11/22/142340 Order Status: Completed Updated: 11/22/142353 POC CARDIAC [...] needed [address] [place] [address] [facility] [address] [facility] Emergency Department If symptoms worsen [address] [facility] [id number] Discharge Medications: Discharge Medication List as of 11/23/2014 1:23 AM Procedures Additional Documentation EKG Performed by: SONA CHEN Authorized by: SONA CHEN Rhythm: sinus Ventricular Rate: 79 AR Interval: Normal ST Segments comment: Non-specific T wave flattening in lateral and inferior leads Significant Q-waves: none Blocks: None QRS axis: Normal Attending Note: Documentation assistance provided by Tara Miller (Scribe). Information recorded by the scribe has been reviewed and validated by me. Troy laughlin with its contents. MD Sona Maloney MD 11/23/14 0607 documentchad light in this encounter Plan of Treatment +--------+ + + + + | Date | Type | Specialty | Care Team | Description | +--------+ + + + + | 10/16/ | Anti-coag | Anticoagulation | Brittany Zaragoza | | | 2019 | visit | | [address] | | | | | | [address] [place], | | | | | | [place] [address] | | | | | | [phone] | | | | | | | [...] CHEST 2 VIEW FRONTAL | | AND OOTEMSH9711/23/2014 12:29 AM HISTORY:58 years. Male. Chest pain [...] | | | | | [address]vd;[place] [address] | | | | + + + + + + | Non- | 5.36Comment: Testing | 4.20 - 5.70 | EXTERNAL | | | Red Blood | performed at [facility] [place];888 | M/uL | LAB | | | Cells | [address];[place] | | | | | Counted | [address] | | | | + + + + + + | Hemoglobin | 12.9 (L)Comment: Testing | 13.2 - 17.0 | EXTERNAL | | | | performed at [facility];888 | g/dL | LAB | | | | [address];[place] | | | | | | [address] | | | | + + + + + + | Hematocrit, | 40.7Comment: Testing | 39.0 - 50.0 % | EXTERNAL | | | POC | performed at [facility];888 | | LAB | | | | [address];[place] | | | | | | [address] | | | | + + + + + + | MCV | 76.0 (L)Comment: Testing | 80.0 - 100.0 fl | EXTERNAL | | | | performed at [facility];888 | | LAB | | | | [address];[place] | | | | | | [address] | | | | + + + + + + | MCH | 24.1 (L)Comment: Testing | 27.0 - 34.0 pg | EXTERNAL | | | | performed at [facility];888 | | LAB | | | | [address];[place] | | | | | | [address] | | | | + + + + + + | MCHC | 31.7 (L)Comment: Testing | 32.0 - 35.5 | EXTERNAL | | | | performed at [facility];888 | g/dL | LAB | | | | [address];[place] | | | | | | [address] | | | | + + + + + + | RDW-CV | 42.0Comment: Testing | 37 - 53 fl | EXTERNAL | | | | performed at [facility];[address] | | LAB | | | | [address];[place] | | | | | | [address] | | | | + + + + + + | Platelet | 326Comment: Testing | 150 - 400 K/uL | EXTERNAL | | | Count | performed at [facility];888 | | LAB | | | Plasma | [address];[place] | | | | | | [address] | | | | + + + + + + | MPV | 7.3Comment: Testing | fl | EXTERNAL | | | | performed at [facility];[address] | | LAB | | | | [address];[place] | | | | | | [address] | | | | + + + + + + | Differentia | AUTOMATEDComment: | | EXTERNAL | | | l Type | Testing performed at | | LAB | | | | [facility];[address];[place] [address] | | | | + + + + + + | % Segmented | 64.30Comment: Testing | % | EXTERNAL | | | | performed at [facility];888 | | LAB | | | Neutrophils | [address];[place] | | | | | | [address] | | | | + + + + + + | % | 23.68Comment: Testing | % | EXTERNAL | | | Lymphocytes | performed at [facility];888 | | LAB | | | | [address];[place] | | | | | | [address] | | | | + + + + + + | % Monocytes | 9.63Comment: Testing | % | EXTERNAL | | | | performed at [facility];[address] | | LAB | | | | [address];[place] | | | | | | [address] | | | | + + + + + + | % | 1.40Comment: Testing | % | EXTERNAL | | | Eosinophils | performed at [facility];[address] | | LAB | | | | [address];[place] | | | | | | [address] | | | | + + + + + + | % Basophils | 0.99Comment: Testing | % | EXTERNAL | | | | performed at [facility];888 | | LAB | | | | [address];[place] | | | | | | [address] | | | | + + + + + + | Absolute | 8.14 (H)Comment: Testing | 1.90 - 7.40 | EXTERNAL | | | Segmented | performed at [facility];888 | K/uL | LAB | | | Neutrophils | [address];[place] | | | | | | [address] | | | | + + + + + + | Absolute | 3.00Comment: Testing | 1.00 - 3.90 | EXTERNAL | | | Lymphocytes | performed at [facility];888 | K/uL | LAB | | | | [address];[place] | | | | | | [address] | | | | + + + + + + | Absolute | 1.22 (H)Comment: Testing | 0.00 - 0.80 | EXTERNAL | | | Monocytes | performed at [facility];888 | K/uL | LAB | | | | [address];[place] | | | | | | [address] | | | | + + + + + + | Absolute | 0.18Comment: Testing | 0.00 - 0.50 | EXTERNAL | | | Eosinophils | performed at [facility];888 | K/uL | LAB | | | | [address];[place] | | | | | | [address] | | | | + + + + + + | Absolute | 0.13 (H)Comment: Testing | 0.00 - 0.10 | EXTERNAL | | | Basophils | performed at [facility];888 | K/uL | LAB | | | | [address];[place] | | | | | | [address] | | | | + + + + + + | RBC | 2+Comment: | | EXTERNAL | | | Morphology | MICRO1+HYPOTesting | | LAB | | | | performed at [facility];[address] | | | | | | [address];[place] | | | | | | [address] | | | | | |Testing performed at [facility];[address];[place] [address] | | | | | | | | | | + + + + + + | Platelet | ADEQUATEComment: Testing | | EXTERNAL | | | Estimate | performed at [facility];[address] | | LAB | | | | [address];[place] | | | | | | [address] | | | | + + + + + + | Na | 142Comment: Testing | 135 - 143 | EXTERNAL | | | | performed at [facility];888 | mmol/L | LAB | | | | [address];[place] | | | | | | [address] | | | | + + + + + + | K | 3.1 (L)Comment: Testing | 3.5 - 4.9 | EXTERNAL | | | | performed at [facility];888 | mmol/L | LAB | | | | [address];[place] | | | | | | [address] | | | | + + + + + + | Cl | 108Comment: Testing | 99 - 109 mmol/L | EXTERNAL | | | | performed at [facility];[address] | | LAB | | | | [address];[place] | | | | | | [address] | | | | + + + + + + | CO2 | 28Comment: Testing | 23 - 32 mmol/L | EXTERNAL | | | | performed at [facility];888 | | LAB | | | | [address];[place] | | | | | | [address] | | | | + + + + + + | Anion Gap | 9Comment: Testing | 5 - 20 mmol/L | EXTERNAL | | | | performed at [facility];888 | | LAB | | | | [address];[place] | | | | | | [address] | | | | + + + + + + | Glucose, | 209 (H)Comment: Testing | 65 - 99 mg/dL | EXTERNAL | | | Fasting | performed at [facility];[address] | | LAB | | | | [address];[place] | | | | | | [address] | | | | + + + + + + | BUN | 12Comment: Testing | 8 - 25 mg/dL | EXTERNAL | | | | performed at [facility];[address] | | LAB | | | | [address];[place] | | | | | | [address] | | | | + + + + + + | Creatinine | 0.90Comment: Testing | 0.70 - 1.30 | EXTERNAL | | | | performed at [facility];888 | mg/dL | LAB | | | | [address];[place] | | | | | | [address] | | | | + + + + + + | BUN/Creatin | 13Comment: Testing | | EXTERNAL | | | ine Ratio | performed at [facility];888 | | LAB | | | | [address];[place] | | | | | | [address] | | | | + + + + + + | Calcium | 8.4 (L)Comment: Testing | 8.5 - 10.5 | EXTERNAL | | | | performed at [facility];888 | mg/dL | LAB | | | | [address];[place] | | | | | | [address] | | | | + + + + + + | Protein, | 7.5Comment: Testing | 6.3 - 8.2 g/dL | EXTERNAL | | | Total | performed at [facility];[address] | | LAB | | | | [address];[place] | | | | | | [address] | | | | + + + + + + | Albumin | 3.5 (L)Comment: Testing | 3.6 - 5.0 g/dL | EXTERNAL | | | | performed at [facility];[address] | | LAB | | | | [address];[place] | | | | | | [address] | | | | + + + + + + | Globulin | 4.1Comment: Testing | 1.3 - 4.9 g/dL | EXTERNAL | | | | performed at [facility];[address] | | LAB | | | | [address];[place] | | | | | | [address] | | | | + + + + + + | A/G Ratio | 0.8 (L)Comment: Testing | 1.0 - 2.4 | EXTERNAL | | | | performed at [facility];[address] | | LAB | | | | [address];[place] | | | | | | [address] | | | | + + + + + + | Bilirubin | 0.3Comment: Testing | 0.1 - 1.5 mg/dL | EXTERNAL | | | Total | performed at [facility];888 | | LAB | | | | [address];[place] | | | | | | [address] | | | | + + + + + + | ALP, | 100Comment: Testing | 35 - 115 U/L | EXTERNAL | | | External | performed at [facility];[address] | | LAB | | | | [address];[place] | | | | | | [address] | | | | + + + + + + | AST | 15Comment: Testing | 10 - 45 U/L | EXTERNAL | | | | performed at [facility];[address] | | LAB | | | | [address];[place] | | | | | | [address] | | | | + + + + + + | ALT | 19Comment: Testing | 10 - 65 U/L | EXTERNAL | | | | performed at [facility];888 | | LAB | | | | [address];[place] | | | | | | [address] | | | | + + + [...] | | | | | [address];[place] [address] | | | | + + + + + + | CK, Total | 138Comment: Testing | 55 - 400 U/L | EXTERNAL | | | | performed at [facility];888 | | LAB | | | | [address];[place] | | | | | | [address] | | | | + + + [...] [place] | | | | | | [address] | | | | + + + + + + | aPTT, | 26Comment: Testing | 23 - 32 seconds | EXTERNAL | | | Patient | performed at [facility];[address] | | LAB | | | | [address];[place] | | | | | | [address] | | | | + + + + + + | CK-MB | 3.8 (H)Comment: Testing | 0.5 - 3.6 ng/mL | EXTERNAL | | | | performed at [facility];[address] | | LAB | | | | [address];[place] | | | | | | [address] | | | | + + + [...] of | | | | | | -SEP-2014 | | | | | | 00:03,Nonspecific [...] | | | | | ONLY, -COMPUTER ([phone]), | | | | | | rewrite editor Nola Avila | | | | [...]
--- OUTSIDE RECORDS SUMMARY | ~2019-10-12 | XMS | Encounter Summary ---
Demographics + + + | Address | [address] | | | [place] [address] | + + + | Home Phone [...] + | Sammi Kohler | ECON | [place] [address] | | + + + + + Care Team Providers + +------+ + | Care [facility]mv Driver Name | Role | Phone | + +------+ + PCP | Unavailable | + +------+ + Encounter Details +--------+ + + + + | Date | Type | Department | Care Team | Description | +--------+ + + + + | 09/18/ | Emergency | [facility] | Vel Nuñez | Encounter for | | 2012 | | [facility] | MD Erast[address] | postoperative wound | | | | [facility] | [address]AL[address] OTERO | check | | | | [address] | [place] [address] | | | | | [place], [place] | [phone] | | | | | [address] | | | | | | [phone] | | | +--------+ + + + [...] Notes by Vel Nuñez MD at 09/18/12 Author: Vel Nuñez MD Service: (none) Author Type: Physician Filed: 09/18/12 1524 Date of Service: 09/18/121324 Status: Signed Tack Puller Machine: Vel Nuñez MD (Physician) Additional Documentation Procedures [facility] Department of Emergency Medicine [...] Vargas, DO Go to his office now [address] [place], [place] [id number] Discharge Medications: New Prescriptions No new medications Vel Nuñez MD 09/18/12 1327 onversion Transa ction, Provider Unknown - 09/18/2012 1:21 PM PDT ED Notes by Michelle Palomares RN at 09/18/121320 Author: Michelle Palomares RN Service: (none) Author Type: Registered Nurse Filed: 09/18/121321 Date of Service: 09/18/121320 Status: Signed Tack Puller Machine: Michelle Palomares RN (Registered Nurse) Dr. Nuñez [...] | | | | | [address] [place], | | | | | | [place] [address] | | | | | | [phone] | | | | | | | | +--------+ + + + + documented as of this encounter Visit Diagnoses + + | Diagnosis | + + | Encounter for postoperative wound check Other specified aftercare following surgery | + + documented in this encounter
--- OUTSIDE RECORDS SUMMARY | ~2019-10-12 | XMS | Clinical Summary ---
Demographics + + + | Address | [address] | | | [place] [address] | + + + | Home Phone [...] Sammi Kohler | E[place] | [place] [address] | | + + + + + Care Team Providers + +------+ + | Care Test Equipment Mechanic Name | Role | Phone [...] tablet by | 30 | 11 | 03/09 | | Activ | | (PRINIVIL,ZESTRIL) | mouth Daily. | tablet | | 10/26 | | e | | 40 MG tablet | | | | 20 | | | + + + +---------+------+------+-------+ | Blood Glucose | Dispense brand per | 1 each | 0 | 03/ | | Activ | | Monitoring Suppl [...] by Other | 400 | 3 | 03/1 | | Activ | | MULTICLIX) | [...] blood sugar | 400 | 3 | 03/ | | Activ | | (BLOOD GLUCOSE [...] | | | | use of insulin ([facility]) | | | | | | | + + + +---------+------+------+-------+ | insulin lispro | Inject 20 Units | 12 mL | 3 | 04/ | | Activ | | (HUMALOG KWIKPEN) [...] | under the skin | | | 320 | | e | | 100 units/mL [...] | insurance allows to | | | 8/20 | | e | | Essential | check Blood Pressure | | | 20 | | | | hypertension | one time daily each | | | | | | | | day. | | | | | | + + + +---------+------+------+-------+ | Insulin Pen Needle | For insulin | 400 | 3 | 06/ | | Activ | | (BD PEN [...] 1 tablet by | | 0 | 07/07 | | Activ | | CC) 60 [...] as directed by | tablet | | /20 | | e | | tabletIndications: | [...] | | | | | | type ([facility]) | | | | | | | [...] | | | | | | type ([facility]) | | | | | | | + + + +---------+------+------+-------+ | psyllium, sugar | Take 1 packet by | | 0 | 07/1 | | Activ | | free, (METAMUCIL | mouth Daily. | | | 20 | | e | | FIBER) | [...] MOUTH TWICE DAILY | tablet | | /20 | | e | | (TOPROL-XL) 50 [...] | | + + + +---------+------+------+-------+ | doxycycline | Take 1 capsule by | 20 | 0 | 08/1 | 08/2 | Disco | | (VIBRAMYCIN) 100 mg | mouth 2 times daily | capsule | | 2/20 | 0/20 | ntinu | | capsuleIndications: | for 10 days. | | | 20 | 20 | ed | | Cellulitis of right | | | | | | (Reor | | leg | | | | | | carlos | | | | | | | | (no | | | | | | | | Cance | | | | | | | | l Rx | | | | | | | | msg)) | + + + +---------+------+------+-------+ | doxycycline | Take 1 capsule by | 14 | 0 | 08/2 | 08/2 | Expir | | (VIBRAMYCIN) 100 mg | mouth 2 times daily | capsule | | 0/20 | 7/20 | ed | | capsuleIndications: | for 7 days. | | | 20 | 20 | | | Cellulitis of right | | | | | | | | leg | | | | | | | [...] | 12/27/2014 | + + + | [facility] (current) use of 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 | 07/14/2014 | [...] | +--------+ + + + + | 10/01/ | Office | Geriatric Medicine | Mireya Pack, | Type 2 diabetes | | 2020 | Visit | | VERIFIER | mellitus with | | | | [...] anticoagulation | +--------+ + + + + | 09/25/ | Telephone | Geriatric Medicine | Mireya Pack, | Other | | 2019 | | | VERIFIER | | +--------+ + + + + | 09/24/ | Telephone | Anticoagulation | Whit Bowen, | | | 2019 | | | RN | | +--------+ + + + + | 09/19/ | Telephone | Geriatric Medicine | Diane Hill, RN | LABS | | 2019 | | | | | +--------+ + + + + | 09/18/ | Orders Only | | Nolvia Yeung, | Cellulitis of right | | 2019 | | | Docking Pilot | leg | +--------+ + + + + | 09/18/ | Telephone | Geriatric Medicine | Mireya Pack, | Other (Lab Orders) | | 2019 | | | VERIFIER | | +--------+ + + + + | | Office | Geriatric Medicine | Mireya Pack, | Cellulitis of right | | 2019 | Visit | | VERIFIER | leg (Primary Dx); | | | | | | Chronic obstructive | | | | | | pulmonary disease, | | | | | | unspecified COPD | | | | | | type ([facility]); Type 2 | | | | | | diabetes mellitus | | | | | | with hyperglycemia, | | | | | | with long-term | | | | | | current use of | | | | | | insulin ([facility]); | | | | | | Noncompliance with | | | | | | medications; BPH | | | | | | with | | | | | | obstruction/lower | | | | | | urinary tract | | | | | | symptoms; Chronic | | | | | | a-fib ([facility]); Other | | | | | | social stressor | +--------+ + + + + | | Orders Only | | Dariel, | Type 2 diabetes | | 2019 | | | Lissy, | mellitus with | | | | | [place] | hyperglycemia, with | | | | | | long-term current | | | | | | use of insulin ([facility]) | +--------+ + + + + | 08/11/ | Telephone | Geriatric Medicine | Mireya Pack, | Cellulitis | | 2019 | | | VERIFIER | | +--------+ + + + + | 09/11/ | Emergency | Emergency Medicine | Nick Judge | Chest pain in adult | 2019 | | | MD Kishan | (Primary Dx) | +--------+ + + + + | 09/10/ | Telephone | Geriatric Medicine | Lucia Amos | Other (elevated | 2019 | | | EVE Garcia | blood sugar) | +--------+ + + + + | 09/09/ | Telephone | Anticoagulation | Stephy Allen RN | | | 2019 | | | | | +--------+ + + + + | 09/06/ | Emergency | Emergency Medicine | Breanne Hurtado, | Chest discomfort | | 2020 | | | DO | (Primary Dx); | | | | | | Urinary frequency; | | | | | | Type 2 diabetes | | | | | | mellitus with | | | | | | hyperglycemia, with | | | | | | long-term current | | | | | | use of insulin ([facility]) | +--------+ + + + + | 09/05/ | Refill | Geriatric Medicine | Mireya Pack, | Medication Refill | | 2019 | | | VERIFIER | | +--------+ + + + + | 09/01/ | Anti-coag | Anticoagulation | Mireya Pack, | Atrial fibrillation | | 2019 | visit | | VERIFIER Raymond, | with RVR ([facility]) | | | | | CITLALY Peralta | | +--------+ + + + + | 08/25/ | Telephone | Anticoagulation | Jeni Dean, | | | 2019 | | | BACTERIOLOGIST SOIL | | +--------+ + + + + | 08/22/ | Anti-coag | Anticoagulation | Mireya Pack, | Atrial fibrillation | | 2019 | visit | | VERIFIER Ninoska Knight, | with RVR ([facility]) | | | | | QUALITY REVIEW TRAINER | | +--------+ + + + + | 08/22/ | Telephone | Anticoagulation | Jeni Dean | | | 2019 | | | BACTERIOLOGIST SOIL | | +--------+ + + + + | 08/20/ | Office | Geriatric Medicine | Mireya Pack, | Chronic a-fib (HCC) | | 2019 | Visit | | VERIFIER | (Primary Dx); | | | | | | Essential | | | | | | hypertension; | | | | | | Chronic obstructive | | | | | | pulmonary disease, | | | | | | unspecified COPD | | | | | | type (HCC); | | | | | | Irregular bowel | | | | | | habits | +--------+ + + + + | 08/20/ | Telephone | Geriatric Medicine | Mireya Pack, | Appointment (call to | | 2019 | | | VERIFIER | schedule an | | | | | | apointment) | +--------+ + + + + | 08/06/ | Anti-coag | Anticoagulation | Mireya Pack, | Longstanding | 2019 | visit | | VERIFIER Jeni Dean, | persistent atrial | | | | | BACTERIOLOGIST SOIL | fibrillation (HCC) | | | | | | (Primary Dx); Atrial | | | | | | fibrillation with | | | | | | RVR ([facility]) | +--------+ + + + + | 08/05/ | Emergency | Emergency Medicine | Aan Victoria, | Other insomnia | 2019 | | | Zach Adams | (Primary Dx); Atrial | | | | | R, DO | fibrillation, | | | | | | unspecified type | | | | | | ([facility]); | | | | | | Hyperglycemia; | | | | | | Essential | | | | | | hypertension | +--------+ + + + + | 08/05/ | Telephone | Geriatric Medicine | Mireya Pack, | Home Health | | 2020 | | | VERIFIER | | +--------+ + + + + | 08/01/ | Telephone | Geriatric Medicine | Lucia Amos | Blood Pressure | | 2019 | | | EVE Garcia | (asymptomatic) | +--------+ + + + + | 07/31/ | Telephone | Case Management | Sanjuanita Rodriguez RN | TCM - Hosp FU | | 2019 | | | | | +--------+ + + + + | 07/30/ | Office | Geriatric Medicine | Mireya Pack, | COPD with lower | | 2020 | Visit | | VERIFIER | respiratory | | | | | [...] Case Management | Sanjuanita Rodriguez RN | [facility] | | 2019 | | | | [...] Refill | | 2019 | | | Asphalt Paving Supervisor | | +--------+ + + + + | 07/21/ | Telephone | Geriatric Medicine | Mireya Pack, | Other | | 2019 | | | VERIFIER | | +--------+ + + + + | 07/17/ | Telephone | Geriatric Medicine | Lucia Amos | | 2020 | | | EVE Garcia | | +--------+ + + + + | 07/15/ | Telephone | Geriatric Medicine | Mireya Pack, | Home Health | | 2019 | | | VERIFIER | | +--------+ + + + + [...] 07/14/ | Telephone | Geriatric Medicine | Mireya Pack, | Triage | | 2019 | | | VERIFIER | | +--------+ + + + + [...] + + + + Plan of Treatment +--------+ + + + + | Date | Type | Specialty | Care Team | Description | +--------+ + + + + | 10/16/ | Anti-coag | Anticoagulation | Brittany Zaragoza | | | 2019 | visit | | [place] [address] | | | | | | [address] [address] | | | | | | [place] [address] | | | | | | [phone] | | | | | | | | +--------+ + + + + + + + + + | Health Maintenance | Due Date | Last | Comments | | | | Done | | + + + + + | Hepatitis C | | | | | Screening | 5 | | | + + + + + | Medication | | | | | Management | 5 | | | + + [...] + + | Hemoglobin A1c | | 09/18/19 | | | Screening | 0 | [...] + | Med Mgmt: HBA1C | | 09/18/19 | | | | 1 | 20, [...] + | Med Mgmt: Cr | | 09/12/19 | | | | 1 | 20, | | | | | 09/07/19 | | | | | 20, | | | | | 08/06/19 | | | | | 20, | | | | | Addition | | | | | al | | | | | history | | | | | exists | | + + + + + | Med Mgmt: HCT | | 09/12/19 | | | | 1 | 20, | | | | | 09/07/19 | | | | | 20, | | | | | 08/06/19 | | | | | 20, | | | | | Addition | | | | | al | | | | | history | | | | | exists | | + + + + + | Med Mgmt: HGB | | 09/12/19 | | | | 1 | 20, | | | | | 09/07/19 | | | | | 20, | | | | | 08/06/19 | | | | | 20, | | | | | Addition | | | | | al | | | | | history | | | | | exists | | + + + + + | Med Mgmt: K | | 09/12/19 | | | | 1 | 20, | | | | | 09/07/19 | | | | | 20, | | | | | 08/06/19 | | | | | 20, | | | | | Addition | | | | | al | | | | | history | | | | | exists | | + + + + + | Med Mgmt: PLT | | 09/12/19 | | | | 1 | 20, | | | | | 09/07/19 | | | | | 20, | | | | | 08/06/19 | | | | | 20, | | | | | Addition | | | | | al | | | | | history | | | | | exists | | + + + + + | Med Mgmt: RBC | | 09/12/19 | | | | 1 | 20, | | | | | 09/07/19 | | | | | 20, | | | | | 08/06/19 | | | | | 20, | | | | | Addition | | | | | al | | | | | history | | | | | exists | | + + + + + | Med Mgmt: WBC | | 09/12/19 | | | | 1 | 20, | | | | | 09/07/19 | | | | | 20, | [...] | | n - | | | 08/06/ | | | 2020 | | | [...] | | | ON?08/ | | | 06/202 | | | 0 | | | 14:49? | | | GR, | | | NORAH | | | | | | M?MRN: | | | | | | [id number] | | | [id number] | | | riteri | | | [...] | | | St. | | | [facility] | | | y | | | Hospit | | | alLast | | | | | | Update | | | d: | | | 8/4/20 | | | 8:27 | | | [...] | | | CONTAC | | | TASIA BY | | | CASE | | [...] | | | NECESS | | | ANKUR | | | The | | | [...] | | | St. | | | [facility] | | | y | | | [...] | | | St. | | | [facility] | | | y H. | | [...] | | | St. | | | [place] [facility] | | | y H. | | [...] | | | St. | | | [place] | | | y H. | | [...] | | | [place] | | | Fun House Attendant | | | al | | | [...] | | | [place] | | | Fun House Attendant | | | al | | | [...] | | | MIREYA, | | | VERIFIER | | | Nurse | | | [...] | +---+--------+ + +--------+ +---+ + | ARRHYTHMIA MONITOR - | [...] section. | + +--------+ +---+ + | PTT | STAT | 09/07/2019 [...] +---+ + | COMPREHENSIVE | STAT | 09/07/2019 [...] +---+ + | B TYPE NATRIURETIC | STAT [...] M?MRN: | | | | | | [id number] | | | [id number] | | | riteri | | | [...] | | | presen | | | tsaia to | | | the | | [...] | | | St. | | | [facility] | | | y | | | [...] | | | St. | | | [facility] | | | y H. | | [...] | | | St. | | | [place] | | | y H. | | [...] | | | [place] | | | Fun House Attendant | | | al | | | [...] | | | [place] | | | Fun House Attendant | | | al | | | [...] | | | MIREYA, | | | VERIFIER | | | Nurse | | | [...] | | | [id number] | | | [id number] | | | 03 | | | [...] | | | | PDT | RVR ([facility]) | results section. | + +--------+ + + + | POC PT/INR | Routin | 08/23/2019 | Atrial | Results for this | | FINGERSTICK | e | 12:50 PM | fibrillation with | procedure are in the | | | | PDT | RVR ([facility]) | results section. | + +--------+ + [...] | | | ON?06/ | | | 30/202 | | | 0 | | | 03:27? | | | GR, | | | NORAH | | | | | | M?MRN: | | | | | | [id number] | | | [id number] | | | riteri | | | [...] | | | St. | | | [place] [facility] | | | y | | | [...] | | | St. | | | [place] [facility] | | | y H. | | [...] | | | St. | | | [place] | | | y H. | | [...] | | | [place] | | | Fun House Attendant | | | al | | | [...] | | | [place] | | | Fun House Attendant | | | al | | | [...] | | | MIREYA, | | | VERIFIER | | | Nurse | | | [...] + | XR CHEST AP PORTABLE | ESCBOAR | 07/23/2019 | | Results for this [...] | | | FICATI | | | ON? | | | | | | 0 | | | 15:46? | | | SIMÓN, | | | NORAH | | | | | | M?MRN: | | | | | | [id number] | | | [id number] | | | riteri | | | [...] | | | St. | | | [place] [facility] | | | y | | | [...] | | | St. | | | [place] | | | y H. | | [...] | | | St. | | | [place] | | | y H. | | [...] | | | [place] | | | Fun House Attendant | | | al | | | [...] | | | [place] | | | Fun House Attendant | | | al | | | [...] | | | MIREYA, | | | VERIFIER | | | Nurse | | | [...] | | n - | | | 06/08/ | | | 2020 | | | [...] M?MRN: | | | | | | [id number] | | | [id number] | | | riteri | | | [...] | | [facility] | | | [place] | | | [place] | | | [...] | | | [place] | | | Fun House Attendant | | | al | | | [...] | | | [place] | | | Fun House Attendant | | | al | | | [...] | | | MIREYA, | | | VERIFIER | | | Nurse | | | [...] | | | [id number] | | | [id number] | | | 36 | | | [...] | +---+--------+ from Last 3 Months Results Hemoglobin A1C (09/18/2019 2:34 PM PDT)Only the most recent of 2 results within the time p heriberto is included. + + + + + [...] [address], | | | | | | [place] [address], [facility] | | | | | | [address] | | | | + + + + + + + + | Specimen | + + | Blood | + + + + + + + | Performing | Address | City/State/Zipcode | Phone Number | | Organization | | | | + + + + + | REFERENCE LAB | [address] | [place] | [phone] | | [facility] | lul. | [address] | | | LABORATORY | | | | + + + + + | REFERENCE LAB | [address] | [place] | | | [facility] | [address] | [address] | | | LABORATORY | | | | + + + + + ECG 12 lead (09/12/2019 3:09 PM PDT)Only the most recent of 6 results within the time marilee od is [...] ATRIAL RATE | 68 | BPM | [place] | | + + + + [...] | | | | | ONLY, -COMPUTER (357), | | | | | | market editor SANTHOSH VÁSQUEZ | | | | [...] | + +---------+ + + Troponin I (09/12/2019 3:01 PM PDT)Only the most recent of 6 results within the time perio d is included. + + + + + + | Component | Value | Ref Range | Performed | Pathologist | | | | | At | Signature | + + + + + + | Troponin I | 0.027Comment: 0.04 | 0.00 - 0.04 | [facility] [...] at | | | | | | [facility];[address] | | | | | | [place] [address] | | | | + + + + + + + + | Specimen | + + | Blood | + + + + + + + | Performing | Address | City/State/Zipcode | Phone Number | | Organization | | | | + + + + + | [facility] | [address] | [place] [address] | [phone] | + + + + + CBC [...] LABORATORY | | | | performed at [facility];[address] | | | | | | [address];[place] | | | | | | [address] | | | | + + + + + + + + | Specimen | + + | Blood | + + + + + + + | Performing | Address | City/State/Zipcode | Phone Number | | Organization | | | | + + + + + | [facility] | [address] | [place] [address] | [phone] | + + + + + Basic Metabolic Panel (09/12/2019 3:01 PM PDT)Only the most recent of 2 [...] | >60Comment: GFR <60: | >60 | [facility] | | | GFR | CHRONIC KIDNEY [...] | | | | | | MDRD IDUT traceable | | | | | | equation.Testing | | | | | | performed at [facility] | | | | | | [facility];[place], [place] | | | | | | [address] | | | | + + + + + + + + | Specimen | + + | Blood | + + + + + + + | Performing | Address | City/State/Zipcode | Phone Number | | Organization | | | | + + + + + | [facility] | [address] | [place] [address] | [phone] | + + + + + ARRHYTHMIA MONITOR - EXTERNAL SCAN (09/08/2019 12:00 AM PDT) + + + | Narrative | Performed At | + + + | Ordered by an | | | unspecified provider. | | + + + Urinalysis With Microscopic (09/07/2019 7:31 AM PDT)Only the most recent of 3 results with in the time period is [...] - 1.030 | [facility] | | | [place], | | | LABORATORY | | | [...] | | | Urine | performed at [facility];[address] | | LABORATORY | | | | [address];[place] | | | | | | [address] | | | | + + + + + + + + | Specimen | + + | Urine | + + + + + + + | Performing | Address | City/State/Zipcode | Phone Number | | Organization | | | | + + + + + | [facility] | [address] | [place] [address] | [phone] | + + + + + PTT (09/07/2019 7:26 AM PDT) + + + + + + | Component | Value | Ref Range | Performed | Pathologist | | | | | At | Signature | + + + + + + | PTT | 34 (H)Comment: Testing | 23 - 32 seconds | [facility] | | | | performed at [facility];[address] | | LABORATORY | | | | [address];[place] | | | | | | [address] | | | | + + + + + + + + | Specimen | + + | Blood | + + + + + + + | Performing | Address | City/State/Zipcode | Phone Number | | Organization | | | | + + + + + | [facility] | [address] | [place] [address] | [phone] | + + + + + Protime INR (09/07/2019 7:26 AM PDT)Only the most recent of 4 results within the time marilee od is included. + + + + + + | Component | Value | Ref Range | Performed | Pathologist | | | | | At | Signature | + + + + + + | INR | 2.2Comment: REFERENCE | | [facility] | | | | RANGE:0.9 - 1.2 [...] | | | | | performed at [facility];[address];[place] | | | | | | [address] | | | | + + + + + + + + | Specimen | + + | Blood | + + + + + + + | Performing | Address | City/State/Zipcode | Phone Number | | Organization | | | | + + + + + | [facility] | [address] | [place] [address] | [phone] | + + + + + CBC with Differential (09/07/2019 7:26 AM PDT)Only the most recent of 6 results within the time period is included. [...] | | | Absolute | performed at [facility];[address] | [address] | LABORATORY | | | | [address];[place] | | | | | | [address] | | | | + + + + + + + + | Specimen | + + | Blood | + + + + + + + | Performing | Address | City/State/Zipcode | Phone Number | | Organization | | | | + + + + + | [facility] | [address] | [place] [address] | [phone] | + + + + + Comprehensive Metabolic Panel (09/07/2019 7:26 AM PDT)Only the most recent of 4 results wi thin the time period is [...] | >60Comment: GFR <60: | >60 | [facility] | | | GFR | CHRONIC KIDNEY [...] | | | | | | MDRD [facility] traceable | | | | | | equation.Testing | | | | | | performed at [facility];[address] | | | | | [address];[place], [place] | | | | | | [address] | | | | + + + + + + + + | Specimen | + + | Blood | + + + + + + + | Performing | Address | City/State/Zipcode | Phone Number | | Organization | | | | + + + + + | [facility] | [address] | [place] [address] | [phone] | + + + + + B Type Natriuretic Peptide (09/07/2019 7:25 AM PDT)Only the most recent of 2 results withi n the time period is included. + + + + + + | Component | Value | Ref Range | Performed | Pathologist | | | | | At | Signature | + + + + + + | BNP | 34.86Comment: Testing | 0 - 100 pg/mL | [facility] | | | | performed at [facility];[address] | | LABORATORY | | | | [address];[place], [place] | | | | | | [address] | | | | + + + + + + + + | Specimen | + + | Blood | + + + + + + + | Performing | Address | City/State/Zipcode | Phone Number | | Organization | | | | + + + + + | [facility] | [address] | [place] [address] | [phone] | + + + + + XR Chest AP Portable (09/07/2019 7:09 AM PDT)Only the most recent of 2 results within the time period is included. + + | Specimen | + + | | + + + + + | Impressions | Performed At | + + + | No acute cardiopulmonary disease. Final Report Signed | [facility] | | by: Irina Ji James Sign Date/Time: 09/07/2019 7:15 AM | | [...] Procedure Note | + + | Richard, [id number] - 09/07/2019 7:19 AM PDT | | [...] Note | + + | Joaquin Ramos Results In 08/06/2019 4:28 AM PDT | [...] 6:08 AM PDT)Only the most recent of 10 results within the time per iod is included. + + + + + + | Component | Value | Ref Range | Performed | Pathologist | | | | | At | Signature | + + + + + + | Glucose, | 96Comment: Testing | 65 - 99 mg/dL | [facility] | | | POC | performed at [facility];[address] | | LABORATORY | | | | [address];[place] | | | | | | [address] | | | | + + + + + + + + | Specimen | + + | | + + + + + + + | Performing | Address | City/State/Zipcode | Phone Number | | Organization | | | | + + + + + | [facility] | [address] | [place] [address] | [phone] | + + + + + Magnesium (07/26/2019 5:19 AM PDT)Only the most recent of 3 [...] [facility] | | | | performed at [facility];[address] | | LABORATORY | | | | [address];[place], [place] | | | | | | [address] | | | | + + + + + + + + | Specimen | + + | | + + + + + + + | Performing | Address | City/State/Zipcode | Phone Number | | Organization | | | | + + + + + | [facility] | [address] | [place] [address] | [phone] | + + + + + Renal [...] | | | | performed at [facility], [address] | | | | | [facility], | | | | | | [place] [address] | | | | + + + + + + + + | Specimen | + + | Blood | + + + + + + + | Performing | Address | City/State/Zipcode | Phone Number | | Organization | | | | + + + + + | [facility] | [address] | [place] [address] | [phone] | + + + + + Legionella, [...] | | | | | performed at [facility], | | | | | | [address], [address], | | | | | | [facility] [address] | | | | + + + [...] | + + + + + | [facility] | [address] | [place] [address] | [phone] | + + + + + Coronavirus (COVID-19) NAAT (07/23/2019 7:49 PM PDT) + + + + + + | Component | Value | Ref Range | Performed | Pathologist | | | | | At | Signature | + + + + + + | SARS-CoV-2, | NEGATIVEComment: This | NEG | [facility] | | | NAAT | test was developed and | | LABORATORY | | | (COVID-19) | its performance | | | | | | characteristics | | | | | | determined by[facility]. It | | | | | | [...] | | | | | performed at [facility];[address] | | | | | | [address];[place], [place] | | | | | | [address] | | | | + + + + + + + + | Specimen | + + | Tissue - Entire | | nasopharynx (body | | structure) | + + + + + + + | Performing | Address | City/State/Zipcode | Phone Number | | Organization | | | | + + + + + | [facility] | [address] | [place] [address] | [phone] | + + + + + CT [...] 5:57 PM PDT)Only the most recent of 2 results within the time ashley louis is [...] | [facility] | | | Requests | [facility] [address] | | LABORATORY | | | | Blvd;[place] [address] | | | | + + + + + + | RESULT | NO GROWTH 6 DAYS | | [facility] | | | | | | LABORATORY | | + + + + + + | RESULT | Testing performed at | | [facility] | | | | [facility], [address] | | LABORATORY | | | | [place], [place] | | | | | | [id number]: Testing | | | | | | performed at [facility], [address] | | | | | | [place], [place] | | | | | | [address] | | | | + + + + + + + + | Specimen | + + | Blood - Peripheral | | blood specimen | | (specimen) | + + + + + + + | Performing | Address | City/State/Zipcode | Phone Number | | Organization | | | | + + + + + | [facility] | [address] | [place] [address] | [phone] | + + + + + Culture, [...] RESULT | Testing performed at | | [facility] | | | | TCL, [address] | | LABORATORY | | | | [place], [place] | | | | | | [id number]: Testing | | | | | | performed at [facility], [address] | | | | | | [facility], | | | | | | [place] [address] | | | | + + + [...] | + + + + + | [facility] | [address] | [place] [address] | [phone] | + + + + + C-Reactive Protein (07/15/2019 12:20 PM PDT) + + + + + + | Component | Value | Ref Range | Performed | Pathologist | | | | | At | Signature | + + + + + + | CRP | 0.6 (H)Comment: Testing | <0.5 mg/dL | [facility] | | | | performed at [facility];[address] | | LABORATORY | | | | [facility];[place], [place] | | | | | | [address] | | | | + + + + + + + + | Specimen | + + | Blood | + + + + + + + | Performing | Address | City/State/Zipcode | Phone Number | | Organization | | | | + + + + + | [facility] | [address] | [place] [address] | [phone] | + + + + + Lipase (07/15/2019 12:20 PM PDT) + + + + + + | Component | Value | Ref Range | Performed | Pathologist | | | | | At | Signature | + + + + + + | Lipase | 44Comment: Testing | 12 - 53 U/L | [facility] | | | | performed at [facility];[address] | | LABORATORY | | | | [address];[place] | | | | | | [address] | | | | + + + + + + + + | Specimen | + + | Blood | + + + + + + + | Performing | Address | City/State/Zipcode | Phone Number | | Organization | | | | + + + + + | [facility] | [address] | [place] [address] | [phone] | + + + + + from Last 3 Months Insurance + +--------+ +--------+ +---------+--------+ | Payer | Benefi | Subscriber | Effect | Phone | Address | Type | | | t Plan | ID | odilon | | | | | | / | | Dates | | | | | | Group | | | | | | + +--------+ +--------+ +---------+--------+ | MEDICARE | MEDICA | [id number] | Effect | [phone] | | Medica | | | RE | | odilon | 5 | | re | | | PART A | | for | | | | | | AND B | | all | | | | | | | | dates | | | | + +--------+ +--------+ +---------+--------+ | [facility] | [facility] | [id number] | 04/07/19 | [phone] | | Medica [...] [address] | | | al/Fam | | 1955 | [phone] | [address] [place] [address] | | | [place] | | | 1 (Home) | [address] | + +--------+ +--------+ + + | Norah Gr | Person | Self [birth year] | [address] | | | al/Fam | | 1955 | [phone] | [address] [place] | | | [place] | | | 1 (Home) | [address] | | | | | | [phone] | | | | | | | 1 (Work) | | + +--------+ +--------+ + + | Norah Gr | Person | Self [birth year] [address] | | | al/Fam | | 1956 | [phone] | [address] [facility] | | | [place] | | | 1 (Home) | [address] | | | | | | [phone] | | | | | | | 1 (Work) | | + +--------+ +--------+ + + Advance Directives + + + + + | Type | Date Recorded | Patient | Explanation | | | | Night Clerk | | + + + + + | Power of | | | | | Music Therapy Specialist | | | | + + + [...]
--- OUTSIDE RECORDS SUMMARY | ~2019-10-12 | XMS | Encounter Summary ---
Demographics + + + | Address | [address] | | | [place] [address] | + + + | Home Phone [...] + | Sammi Kohler | ECON | [place] [address] | | + + + + + Care Team Providers + +------+ + | Care Credit Cashier Name | Role | Phone | [...] + + | 04/04/ | Emergency | [facility] | Ana Victoria, | Chest pain, | | 2019 | | MEDICAL CENTER | [facility] [address] | unspecified type | | | | EMERGENCY CENTER | [place], [place] | (Primary Dx) | | | | [address] | [address] | | | | | [place], [place] | [phone] | | | | | [address] | | | | | | [phone] | Mik Kwong MD | | | | | | [address] | | | | | | [place] [address] | | | | | | [phone] | | | | | | | [...] through Care Everywhere.Chest Pain, Unc ertain Cause ([place])documented in this encounter Medications at Time of [...] might be different fro m the original. [facility] Department of Emergency Medicine No flowsheet data found. History of Present Illness Patient Identification Jania is a 63 y.o. male. Patient information was obtained from: patient. History/Exam limitations: none. 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) use of 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 Obesity, Class I, BMI 30-34.9 07/08/2013 WARD (obstructive sleep apnea) 08/11/2012 does not use CPAP because of the noise Other chronic pain Renal failure Stroke (HCC) TIA (transient ischemic attack) Unspecified visual disturbance reading glasses Past Surgical History: Procedure Laterality Date ABDOMEN SURGERY CHOLECYSTECTOMY CHOLECYSTECTOMY, LAPAROSCOPIC 09/12/2012 Procedure: LAPAROSCOPIC - CHOLECYSTECTOMY; Surgeon: Jevon Vargas DO; Location: [facility] MAIN OR; Service: General; Laterality: N/A; COLONOSCOPY COLONOSCOPY 03/04/2013 Procedure: COLONOSCOPY; Surgeon: Howie Gibson MD; Location: [facility] ENDOSCOPY; Service: Gastroen terology; Laterality: N/A; HERNIA REPAIR 07/03/2013 Procedure: LAPAROSCOPIC - HERNIA - INCISIONAL; Surgeon: Jevon Vargas DO; Location: [facility] MAIN OR; Service: General; Laterality: N/A; KNEE SURGERY rt knee, patella LEG SURGERY LLE OTHER SURGICAL HISTORY UNLISTED PROCEDURE ARTHROSCOPY OTHER SURGICAL HISTORY Left 05/05/2014 SKIN LESION EXCISION - Procedure: EXCISION - LESION - FROZEN SECTION; Surgeon: Sy murcia MD; Location: [facility] MAIN OR; Service: Plastics; Laterality: Left; forearm SKIN BIOPSY SKIN CANCER EXCISION Left 10/10/2012 Procedure: EXCISION - SKIN CANCER; Surgeon: Sy Fierro MD; Location: [facility] MAIN OR; Service: Plastics; Laterality: Left; upper arm and upper back w/frozen section UPPER GASTROINTESTINAL ENDOSCOPY UPPER GASTROINTESTINAL ENDOSCOPY 03/03/2013 Procedure: ESOPHAGOGASTRODUODENOSCOPY; Surgeon: Howie Gibson MD; Location: [facility] ENDOSCOPY; Se rvice: Gastroenterology; Laterality: N/A; 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 [address] [facility]. Specialty: Emergency Medicine Why: As needed, If symptoms worsen Contact information: [address] [facility] [phone] JULISSA Ye PA-C 04/04/19 0807 Associated attestation - Mik Kwong MD - 04/04/2019 10:31 AM PSTI was personally brenna cuellar for consultation in the emergency department. I have reviewed the note and supervise d the Advanced Infrastructure Developer (APC). I spoke with the patient at [...] | Anticoagulation | RhawnNohemih | | | 2019 | visit | | [address] | | | | | | [address] [facility], | | | | | | [place] [address] | | | | | | [phone] | | | | | | | [...] | | | ON?02/ | | | 27/202 | | | 0 | | | 04:12? | | | GR, | | | NORAH | | | | | | M?MRN: | | | | | | [id number] | | | [id number] | | | riteri | | | [...] | | s [facility] | | | [place] | | | [place] | | | [...] | | | [place] | | | [place] | | | al | | | [...] + | Richard, Rad Results In - 04/04/2019 5:05 AM PST | | CHEST [...] | | | | Signed by: Irina Rowe, Kishan | | Sign Date/Time: 04/04/2019 5:02 AM [...] 0.026Comment: 0.04 | 0.00 - 0.04 | [facility] [...] | | | | [facility];[address] [facility] | | | | | | Blvd;[place] [address] | | | | + + + + + + + + | Specimen | + + | Blood | + + + + + + + | Performing | Address | City/State/Zipcode | Phone Number | | Organization | | | | + + + + + | [facility] | [address] | [place] [address] | [phone] | + + + + + Comprehensive [...] | | performed at [facility] | | | | | | [address];[place], [place] | | | | | | [address] | | | | + + + + + + + + | Specimen | + + | Blood | + + + + + + + | Performing | Address | City/State/Zipcode | Phone Number | | Organization | | | | + + + + + | [facility] | [address] | [place] [address] | [phone] | + + + + + CBC [...] 0.07Comment: Testing | 0.00 - 0.10 | [facility] | | | Absolute | performed at [facility];[address] | [address] | LABORATORY | | | | [address];[place], [place] | | | | | | [address] | | | | + + + + + + + + | Specimen | + + | Blood | + + + + + + + | Performing | Address | City/State/Zipcode | Phone Number | | Organization | | | | + + + + + | [facility] | [address] | [place] [address] | [phone] | + + + + + ECG [...] | | | | | ONLY, -COMPUTER (121), | | | | | | editor house organ Mel Bruno | | | | | | 17 on 04/04/2019 | | | | | [...]
--- OUTSIDE RECORDS SUMMARY | ~2019-10-12 | XMS | Encounter Summary ---
Demographics + + + | Address | [address] | | | [place] [address] | + + + | Home Phone [...] + | Sammi Kohler | ECON | [place] [address] | | + + + + + Care Team Providers + +------+ + | [employer] Band Director Name | Role | Phone | [...] + + | 07/07/ | Telephone | [facility] | Mireya Pack, | Follow-up | | 2020 | | [facility] [address] | HOST COORDINATOR [address] | | | | | [address] | [address] [place], | | | | | [place], [place] | [place] [address] | | | | | [address] | [phone] | | | | | [phone] | | | +--------+ + + + [...] up with provider. Please call him at [phone] Heidi Moody documented in this enco unter Plan of Treatment +--------+ + + + + | Date | Type | Specialty | Care Team | Description | +--------+ + + + + | 10/16/ | Anti-coag | Anticoagulation | Brittany Zaragoza | | 2019 | visit | | [address] | | | | | | [address] [place], | | | | | | [place] [address] | | | | | | [phone] | | | | | | | [...]
--- OUTSIDE RECORDS SUMMARY | ~2019-10-12 | XMS | Encounter Summary ---
Demographics + + + | Address | [address] | | | [place] [address] | + + + | Home Phone [...] + | Sammi Kohler | ECON | [place] [address] | | + + + + + Care Team Providers + +------+ + | Care Accounting Technician Name | Role | Phone | + +------+ + PCP | Unavailable | + +------+ + Encounter Details +--------+ + + + + | Date | Type | Department | Care Team | Description | +--------+ + + + + | 08/22/ | Emergency | [facility] | Marcos Nugent, | Chest pain | | 2013 - | | [facility] [place] | MD [address] | | | | | EMERGENCY CENTER | [place] [address] | | | 08/23/ | | [address] | [phone] | | | 2013 | | [place], [place] | | | | | | [address] | | | | | | [phone] | | | +--------+ + + + [...] documented as of this encounter ED Notes Antonella Kendrick - 08/22/2013 10:19 PM PDTFormatting of this note might be different fro m the original. ED Provider Notes by Antonella Kendrick PA-C at 08/22/132218 Author: Antonella Kendrick PA-C Service: (none) Author Type: Physician Forex Trader - Cer tified Filed: 08/23/13 0538 Date of Service: 08/22/132218 Status: Signed Adult Protective Caseworker: Antonella Kendrick PA-C (Physician Forex Trader - Certified) Related Notes: Cosigned by Marcos Nugent MD (Physician) filed at 08/23/132037 Procedures [facility] Department of Emergency [...] been seen for this many times in past. A nuclear med stress test was [...] - CHOLECYSTECTOMY; Surgeon: Jevon Vargas DO; Location: [facility]; Service: General; Laterality: N/A; Abdominal surgery Cholecystectomy Skin cancer excision 10/10/2012 Procedure: EXCISION - SKIN CANCER; Surgeon: Sy Fierro MD; Location: [facility] ; Service: Plastics; Laterality: Left; upper arm and upper back w/frozen section Esophagogastroduodenoscopy 03/03/2013 Procedure: ESOPHAGOGASTRODUODENOSCOPY; Surgeon: Howie Gibson MD; Location: [facility]; S ervice: Gastroenterology; Laterality: N/A; Colonoscopy 03/04/2013 Procedure: COLONOSCOPY; Surgeon: Howie Gibson MD; Location: [facility]; Service: Gastroe nterology; Laterality: N/A; Upper gastrointestinal endoscopy Skin biopsy Hernia repair 07/03/2013 Procedure: LAPAROSCOPIC - HERNIA - INCISIONAL; Surgeon: Jevon Vargas DO; Location: [facility]; Service: General; Laterality: [...] 160 mg by mouth daily. Historical Provider hwxllagjg-oyflcpvz-cheizgvvk hydroxide-simethicone Take 40 mLs by mouth daily [...] patient is [place] to [place] and appears to have some mental delays. [...] he was seen l ast night at [facility] for the same thing, was admitted overnight and had a stress test this am prior to discharge. Repeat troponin is negative and patient reports his pain is gone and he wants to go home Records Reviewed Old medical records. Previous electrocardiograms. Previous radiology studies. Laboratory Evaluation Results Procedure Component Value Ref Range Date/Time POC cardiac troponin [[id number]] Collected:08/23/13 0018 Order Status:Completed Updated:08/23/130 POC CARDIAC TROPONIN 0.02 0.00 - 0.10 ng/mL Cardiac Panel [[id number]] (Abnormal) Collected:08/22/131999 Order Status:Completed Updated:08/22/132038 WBC 9.8 [...] - 3.6 ng/mL CK-MB Index 2.4 Lipase [[id number]] Collected:08/22/131999 Order Status:Completed Updated:08/22/132035 Specimen Information:Blood LIPASE 125 73 - 393 U/L POC cardiac troponin [[id number]] Collected:08/22/132006 Order Status:Completed Updated:08/22/132019 POC CARDIAC TROPONIN [...] as possible for a visit tomorrow [address] [place] [address] [facility] [id number] DO Antonella Ba PA-C 08/23/13448 Marcos Delgadillo MD - 08/22/2013 10:19 PM PDT ED Provider Notes by Marcos Nugent MD at 08/22/132218 Author: Marcos Nugent MD Service: (none) Author Type: Physician Filed: 08/23/132037 Date of Service: 08/22/132218 Status: Signed Adult Protective Caseworker: Marcos Nugent MD (Physician) Related Notes: Related Note by Antnoella Kendrick PA-C (Physician Forex Trader - Certified) filed at 08/23/13448 I have reviewed the note and supervised the mid-level provider. Marcos Nugent MD 08/23/132037 Marcos Delgadillo MD - 08/22/2013 9:39 PM PDT ED Provider Notes by Marcos Nugent MD at 08/22/132138 Author: Marcos Nugent MD Service: (none) Author Type: Physician Filed: 08/23/13 0043 Date of Service: 08/22/132138 Status: Addendum Adult Protective Caseworker: Marcos Nugent MD (Physician) Related Notes: Original Note by Marcos Nugent MD (Physician) filed at 08/22/132332 EKG done at 7:44 PM, rate 102, sinus tachycardia with premature atrial complexes, nonspecif ic ST abnormality, no overt ischemic changes. EKG interpreted by myself the time of clinica l encounter. As supervising physician, examined the [...] find any indication for admission to the [facility]. With the onset of the symptoms, and [...] 08/22/132034 Date of Service: 08/22/132024 Status: Signed Adult Protective Caseworker: Itzel Hussein RN (Registered Nurse) Returned from [...] [place], | | | | | | [place] [address] | | | | | | [phone] | | | | | | | [...] [place] | | | | | | [address] | | | | + + + + + -+ | Non- | 5.10Comment: Testing | 4.20 - 5.70 | EXTERNAL | | | Red Blood | performed at [facility];[address] | M/uL | LAB | | | Cells | [address];[place] | | | | | Counted | [address] | | | | + + + + + -+ | Hemoglobin | 13.6Comment: Testing | 13.2 - 17.0 | EXTERNAL | | | | performed at [facility];888 | g/dL | LAB | | | | [address];[place] | | | | | | [address] | | | | + + + + + -+ | Hematocrit, | 40.3Comment: Testing | 39.0 - 50.0 % | EXTERNAL | | | POC | performed at [facility];[address] | | LAB | | | | [address];[place] | | | | | | [address] | | | | + + + + + -+ | MCV | 79.1 (L)Comment: Testing | 80.0 - 100.0 fl | EXTERNAL | | | | performed at [facility];[address] | | LAB | | | | [address];[place] | | | | | | [address] | | | | + + + + + -+ | MCH | 26.7 (L)Comment: Testing | 27.0 - 34.0 pg | EXTERNAL | | | | performed at [facility];[address] | | LAB | | | | [address];[place] | | | | | | [address] | | | | + + + + + -+ | MCHC | 33.8Comment: Testing | 32.0 - 35.5 | EXTERNAL | | | | performed at [facility];[address] | g/dL | LAB | | | | [address];[place] | | | | | | [address] | | | | + + + + + -+ | RDW-CV | 41.6Comment: Testing | 37 - 53 fl | EXTERNAL | | | | performed at [facility];[address] | | LAB | | | | [address];[place] | | | | | | [address] | | | | + + + + + -+ | Platelet | 317Comment: Testing | 150 - 400 K/uL | EXTERNAL | | | Count | performed at [facility];[address] | | LAB | | | Plasma | [address];[place] | | | | | | [address] | | | | + + + + + -+ | MPV | 7.2Comment: Testing | fl | EXTERNAL | | | | performed at [facility];[address] | | LAB | | | | [address];[place] | | | | | | [address] | | | | + + + + + -+ | Differentia | AUTOMATEDComment: | | EXTERNAL | | | l Type | Testing performed at | | LAB | | | | [facility];[address];[place] [address] | | | | + + + + + -+ | % Segmented | 66.8Comment: Testing | % | EXTERNAL | | | | performed at [facility];[address] | | LAB | | | Neutrophils | [address];[place] | | | | | | [address] | | | | + + + + + -+ | % | 23.4Comment: Testing | % | EXTERNAL | | | Lymphocytes | performed at [facility];[address] | | LAB | | | | [address];[place] | | | | | | [address] | | | | + + + + + -+ | % Monocytes | 8.0Comment: Testing | % | EXTERNAL | | | | performed at [facility];[address] | | LAB | | | | [address];[place] | | | | | | [address] | | | | + + + + + -+ | % | 1.4Comment: Testing | % | EXTERNAL | | | Eosinophils | performed at [facility];[address] | | LAB | | | | [address];[place] | | | | | | [address] | | | | + + + + + -+ | % Basophils | 0.4Comment: Testing | % | EXTERNAL | | | | performed at [facility];[address] | | LAB | | | | [address] | | | | | | [address] | | | | + + + + + -+ | Absolute | 6.6Comment: Testing | 1.9 - 7.4 K/uL | EXTERNAL | | | Segmented | performed at [facility];[address] | | LAB | | | Neutrophils | [address];[place] | | | | | | [address] | | | | + + + + + -+ | Absolute | 2.3Comment: Testing | 1.0 - 3.9 K/uL | EXTERNAL | | | Lymphocytes | performed at [facility];[address] | | LAB | | | | [address];[place] | | | | | | [address] | | | | + + + [...] [place] | | | | | | [address] | | | | + + + + + -+ | Absolute | 0.0Comment: Testing | 0 - 0.1 K/uL | EXTERNAL | | | Basophils | performed at [facility];[address] | | LAB | | | | [address] | | | | | | [address] | | | | + + + + + -+ | Na | 141Comment: Testing | 135 - 143 | EXTERNAL | | | | performed at [facility];[address] | mmol/L | LAB | | | | [address];[place] | | | | | | [address] | | | | + + + + + -+ | K | 3.5Comment: Testing | 3.5 - 4.9 | EXTERNAL | | | | performed at [facility];[address] | mmol/L | LAB | | | | [address] | | | | | | [address] | | | | + + + + + -+ | Cl | 105Comment: Testing | 99 - 109 mmol/L | EXTERNAL | | | | performed at [facility];[address] | | LAB | | | | [address];[place] | | | | | | [address] | | | | + + + + + -+ | CO2 | 27Comment: Testing | 23 - 32 mmol/L | EXTERNAL | | | | performed at [facility];[address] | | LAB | | | | [address];[place] | | | | | | [address] | | | | + + + + + -+ | Anion Gap | 12Comment: Testing | 5 - 20 mmol/L | EXTERNAL | | | | performed at [facility];[address] | | LAB | | | | [address] | | | | | | [address] | | | | + + + + + -+ | Glucose, | 160 (H)Comment: Testing | 65 - 99 mg/dL | EXTERNAL | | | Fasting | performed at [facility];[address] | | LAB | | | | [address] | | | | | | [address] | | | | + + + + + -+ | BUN | 18Comment: Testing | 8 - 25 mg/dL | EXTERNAL | | | | performed at [facility];[address] | | LAB | | | | [address] | | | | | | [address] | | | | + + + + + -+ | Creatinine | 1.16Comment: Testing | 0.70 - 1.30 | EXTERNAL | | | | performed at [facility];[address] | mg/dL | LAB | | | | [address];[place] | | | | | | [address] | | | | + + + + + -+ | BUN/Creatin | 15Comment: Testing | | EXTERNAL | | | ine Ratio | performed at [facility];[address] | | LAB | | | | [address];[place] | | | | | | [address] | | | | + + + + + -+ | Calcium | 8.8Comment: Testing | 8.5 - 10.2 | EXTERNAL | | | | performed at [facility];[address] | mg/dL | LAB | | | | [address] | | | | | | [address] | | | | + + + + + -+ | Protein, | 7.6Comment: Testing | 6.3 - 8.2 g/dL | EXTERNAL | | | Total | performed at [facility];[address] | | LAB | | | | [address] | | | | | | [address] | | | | + + + + + -+ | Albumin | 3.3 (L)Comment: Testing | 3.6 - 5.0 g/dL | EXTERNAL | | | | performed at [facility];[address] | | LAB | | | | [address] | | | | | | [address] | | | | + + + + + -+ | Globulin | 4.3Comment: Testing | 1.3 - 4.9 g/dL | EXTERNAL | | | | performed at [facility];[address] | | LAB | | | | [address] | | | | | | [address] | | | | + + + + + -+ | A/G Ratio | 0.8 (L)Comment: Testing | 1.0 - 2.4 | EXTERNAL | | | | performed at [facility];[address] | | LAB | | | | [address] | | | | | | [address] | | | | + + + + + -+ | Bilirubin | 0.2Comment: Testing | 0.1 - 1.5 mg/dL | EXTERNAL | | | Total | performed at [facility];[address] | | LAB | | | | [address] | | | | | | [address] | | | | + + + + + -+ | ALP, | 97Comment: Testing | 35 - 115 U/L | EXTERNAL | | | External | performed at [facility];[address] | | LAB | | | | [address] | | | | | | [address] | | | | + + + + + -+ | AST | 20Comment: Testing | 10 - 45 U/L | EXTERNAL | | | | performed at [facility];[address] | | LAB | | | | [address] | | | | | | [address] | | | | + + + + + -+ | ALT | 28Comment: Testing | 10 - 65 U/L | EXTERNAL | | | | performed at [facility];[address] | | LAB | | | | [address] | | | | | | [address] | | | | + + + [...] [address];[place] [address] | | | | + + + + + -+ | CK, Total | 152Comment: Testing | 55 - 400 U/L | EXTERNAL | | | | performed at [facility];[address] | | LAB | | | | [address];[place] | | | | | | [address] | | | | + + + [...] [place];[address] | | | | | | [address] | | | | | | [address] | | | | + + + + + -+ | aPTT, | 24Comment: Testing | 23 - 32 seconds | EXTERNAL | | | Patient | performed at [facility];[address] | | LAB | | | | [address] | | | | | | [address] | | | | + + + + + -+ | CK-MB | 3.6Comment: Testing | 0.5 - 3.6 ng/mL | EXTERNAL | | | | performed at [facility];[address] | | LAB | | | | [address] | | | | | | [address] | | | | + + + [...] | LAB | | | | [address];[place], [place] | | | | | | [address] | | | | + + + [...] | | | | | purchasing expeditor Keyla Gregory | | | | | | (24) on 08/23/2013 | | | | | | 3:22:56 AM | | | | + + + + + + + + | Specimen | + + | | + + + + + | Narrative | Performed At | + + + | Historically converted procedure from [facility] Epic environment | EXTERNAL LAB | [...]
--- OUTSIDE RECORDS SUMMARY | ~2019-10-12 | XMS | Encounter Summary ---
Demographics + + + | Address | [address] | | | [place] [address] | + + + | Home Phone [...] + | Sammi Kohler | ECON | [place] [address] | | + + + + + Care Team Providers + +------+ + | Care Engraved Roller Inspector Name | Role | Phone | + +------+ + PCP | Unavailable | + +------+ + Encounter Details +--------+ + + + + | Date | Type | Department | Care Team | Description | +--------+ + + + + | 02/03/ | Emergency | [facility] | Norah Barker MD | Viral URI with | | 2013 - | | MEDICAL CENTER | [address] | cough; Acute chest | | | | EMERGENCY CENTER | [place] [address] | pain; Hyperglycemia | | 02/04/ | | [address] | [phone] | | | 2013 | | [place], [place] | | | | | | [address] | | | | | | [phone] | | | +--------+ + + + [...] Notes Conversion Transaction, Provider Unknown - 02/04/2014 12:23 AM PSTFormatting of this note m ight be different from the original. ED Notes by Doris Moya at 02/04/1422 Author: Doris Moya Service: (none) Author Type: Brief Writer Filed: 02/04/1422 Date of Service: 02/04/1422 Status: Signed Brim Stiffener: Doris Moya (Brief Writer) [facility] Tax[employer] called Doris Moya 02/04/1422 onver ivana Transaction, Provider Unknown - 02/03/2014 11:54 PM PST ED Notes by Jenna Carreno RN at 02/03/142353 Author: Jenna Carreno RN Service: (none) Author Type: Registered Nurse Filed: 02/03/142353 Date of Service: 02/03/142353 Status: Signed Brim Stiffener: Jenna Carreno RN (Registered Nurse) Assumed pt care, received report from Onel Carreno RN 02/03/142353 hNorah redding MD - 02/03/2014 11:09 PM PSTFormatting of this note might be different from the or iginal. ED Provider Notes by Norah Barker MD at 02/03/142308 Author: Norah Barker MD Service: (none) Author Type: Physician Filed: 02/04/14 0005 Date of Service: 02/03/142308 Status: Signed Brim Stiffener: Norah Barker MD (Physician) [facility] Department of Emergency Medicine History of Present Illness Patient Identification Norah Gr is a 58 y.o. male. Patient information was obtained from patient. History/Exam limitations: none. Patient presented to the Emergency Department Car Room:09/13 Chief Complaint Chief Complaint Patient presents with Chest Pain 58 y.o. male with chest pain, cough. Patient states his cough for the last several days th at is nonproductive. He states that he has been having left-sided chest pain throughout the day today that is worse when he coughs. No fevers or chills. No nausea, vomiting, diarrhe a. No lower extremity swelling. Patient gets chronic chest pain and states this feels chris lar to when he had chest pain in the past. He had an angiogram three months ago that showed no underlying coronary artery disease. Symptoms are described as moderate. Worse with cou ghing. No significant alleviating factors. No treatment prior to arrival. Primary Care Doctor: JERRELL GUTIÉRREZ Past Medical [...] - CHOLECYSTECTOMY; Surgeon: Jevon Vargas DO; Location: [facility] MAIN OR; Service: General; Laterality: N/A; Abdominal surgery Cholecystectomy Skin cancer excision 10/10/2012 Procedure: EXCISION - SKIN CANCER; Surgeon: Sy Fierro MD; Location: [facility] MAIN OR ; Service: Plastics; Laterality: Left; upper arm and upper back w/frozen section Esophagogastroduodenoscopy 03/03/2013 Procedure: ESOPHAGOGASTRODUODENOSCOPY; Surgeon: Howie Gibson MD; Location: [facility] ENDOSCOPY; S ervice: Gastroenterology; Laterality: N/A; Colonoscopy 03/04/2013 Procedure: COLONOSCOPY; Surgeon: Howie Gibson MD; Location: [facility] ENDOSCOPY; Service: Gastroe nterology; Laterality: N/A; Upper gastrointestinal endoscopy Skin biopsy Hernia repair 07/03/2013 Procedure: LAPAROSCOPIC - HERNIA - INCISIONAL; Surgeon: Jevon Vargas DO; Location: [facility] MAIN OR; Service: General; Laterality: N/A; Prior to Admission medications Medication Sig Start Date End Date Taking? Authorizing Provider Albuterol Sulfate (VENTOLIN HFA IN) Inhale 2 puffs into the lungs as needed. 108 mcg/act Historical Provider Dpylx-Z-Ykpnatrfnhbhx (BEANO) TABS Take 150 Units by mouth [...] 180 mg at hs 11/30/13 11/30/14 [facility] carlyn Mae MD docusate [...] 100 mg by mouth nightly. Historical Provider vjduukqgn-utqkiqcq-ritaitore hydroxide-simethicone Take 40 mLs by mouth daily [...] Problems Brother Review of Systems Positive for: Cough, chest pain No fever, chills, nausea or vomiting. No vision changes, difficulty breathing. No headache, abdominal pain, weakness or rash. No difficulty with urination or bowel movements. No other complaints. See HPI for further relevant details. All systems otherwise negative, except as recorded above and as recorded in the HPI. Physical Exam Filed Vitals: 02/04/14 0003 BP: 138/64 Pulse: 66 Temp: Resp: 18 SpO2: 98% INTERPRETATION OF VITALS Pulse Oximetry interpretation: [...] Soft and nontender. No rebound or guarding. Obese. Scattered ecchymosis on the abdomen. Genitourinary: Deferred. Back: Moves without difficulty. Skin: Skin warm and dry. Extremities: No deformity. Neuro: Moves all extremities. No gross deficit. Medical Decision Making and Emergency Department Course ED Department Course: 11:09 PM Norah Gr is a 58 y.o. male who presents with a chief complaint of cough and chest pain . Differential diagnosis includes bronchitis, pneumonia, pleurisy, pneumothorax, other. Af ter discussing diagnostic and therapeutic options with patient lifting routine screening lab s, EKG, chest x-ray. We will treat symptomatically with aspirin and Tessalon Perles. We wi ll monitor closely and reevaluate.. 12:03 AM EKG, chest x-ray, labs are all unremarkable with the exception of mild hyperglycemia. He i s doing well. At this time I feel he is stable for outpatient management. We will start dulce ga on cough medication. I do not feel he requires antibiotics at this time.Typical anticipat ory guidelines and strict return to Emergency Department precautions have been given. All in volved are understanding of and in agreement with this plan. All questions have been address ed to the best of my ability. Records Reviewed Old medical records. Previous electrocardiograms. Nursing notes. Previous radiology studies. Laboratory Evaluation Results Procedure Component Value Ref Range Date/Time Cardiac Panel [[id number]] (Abnormal) Collected: 02/03/14 2321 Order Status: Completed Updated: 02/03/14 2351 WBC 9.1 3.8 - 11.0 K/uL RBC 4.64 4.20 - 5.70 M/uL HGB 11.9 (L) 13.2 - 17.0 g/dL HCT 37.1 (L) 39.0 - 50.0 % MCV 80.0 80.0 - 100.0 fl MCH 25.6 (L) 27.0 - 34.0 pg MCHC 32.0 32.0 - 35.5 g/dL RDW SD 43.3 37 - 53 fl PLT 257 150 - 400 K/uL MPV 7.8 fl DIFF TYPE AUTOMATED NEUTROPHILS 57.8 % LYMPHOCYTES 27.3 % MONOCYTES 10.2 % EOSINOPHILS 3.5 % BASOPHILS 1.2 % NEUTROPHILS ABS 5.2 1.9 - 7.4 K/uL LYMPHOCYTES ABS 2.5 1.0 - 3.9 K/uL MONOCYTES ABS 0.9 (H) 0 - 0.8 K/uL EOSINOPHILS ABS 0.3 0 - 0.5 K/uL BASOPHILS ABS 0.1 0 - 0.1 K/uL SODIUM 140 135 - 143 mmol/L POTASSIUM 4.1 3.5 - 4.9 mmol/L CHLORIDE 103 99 - 109 mmol/L CO2 30 23 - 32 mmol/L ANION GAP AGAP 11 5 - 20 mmol/L GLUCOSE 278 (H) 65 - 99 mg/dL BUN 14 8 - 25 mg/dL CREATININE 1.28 0.70 - 1.30 mg/dL BUN/CREAT 11 CALCIUM 8.4 (L) 8.5 - 10.2 mg/dL TOTAL PROTEIN 6.7 6.3 - 8.2 g/dL Albumin 3.0 (L) 3.6 - 5.0 g/dL GLOBULIN 3.7 1.3 - 4.9 g/dL A/G 0.8 (L) 1.0 - 2.4 TBIL 0.2 0.1 - 1.5 mg/dL ALK PHOS 76 35 - 115 U/L AST 17 10 - 45 U/L ALT 21 10 - 65 U/L EGFR >60 >60 mL/min/1.73m2 CPK 117 55 - 400 U/L INR 1.0 APTT 24 23 - 32 seconds MMB 3.5 0.5 - 3.6 ng/mL CK-MB Index 3.0 POC cardiac troponin [[id number]] Collected: 02/03/14 2326 Order Status: Completed Updated: 02/03/14 2340 POC CARDIAC TROPONIN 0.00 0.00 - 0.10 ng/mL Lab Interpretation I have reviewed lab results from the emergency department workup and abnormal results have been posted to the chart. Pertinent positive and negative findings have been addressed appr opriately. Radiology and EKG Evaluation Imaging Results XR Chest PA and Lateral (Preliminary result) Result time: 02/03/14 23:59:16 ED Interpretation Documented by Norah Barker MD (02/03/14 23:59:16, [facility] Emergency Department, Emergency Medicine) This ED initial read occurred during the ED course and management. The ED interpretation at the time the patient was being clinically managed, and prior to the radiology final read interpretation was: No acute infiltrate. No acute effusion. No cardiomegaly. Normal mediastinum. No pneumothorax. This study has been independently viewed and interpreted by myself. ECG from 2301: Sinus bradycardia tachycardia rhythm at 75 bpm. IL, QRS, QT, and axis are no rmal. No ST segment elevations or depression. No significant Q waves. Good R wave progressio n through the precordial leads. No STEMI criteria for ischemia. In comparison with an old ECG from 01/18/14 there are no significant changes. This study has been independently vie wed and interpreted by me. ED Diagnoses Final diagnoses Viral URI with cough Acute chest pain Hyperglycemia Disposition: ED Disposition Discharge Condition at discharge: Stable Follow-up Information Follow up With Details Comments Contact Info Jerrell Gutiérrez, Schedule an appointment as soon as possible for a visit [address] [address] [facility] Emergency Department If symptoms worsen [address] [facility] [address] Discharge Medications: New Prescriptions BENZONATATE (TESSALON) 100 MG CAPSULE Take 1 capsule by mouth every 8 (eight) hours. This document has been prepared with a voice recognition system. The possibility of "sound alike" yard goods salesperson errors, addition and/or deletions may occur. If there is any question p lease contact the author of the document. Procedures Additional Documentation Procedures Norah Barker MD 02/04/14 0005 onversion Transjulieta n, Provider Unknown - 02/03/2014 11:00 PM PST ED Notes by Onel Kenney RN at 02/03/142299 Author: Onel Kenney RN Service: (none) Author Type: Registered Nurse Filed: 02/03/142299 Date of Service: 02/03/142299 Status: Signed Brim Stiffener: Onel Kenney RN (Registered Nurse) Bed: 08 Expected date: [...] | | | | | [address] [place], | | | | | | [place] [address] | | | | | | [phone] | | | | | | | | +--------+ + + + + documented as of this encounter Procedures + +--------+ + + + | Procedure Name | Priori | Date/Time | Associated Diagnosis | Comments | | | ty | | | | + +--------+ + + + | XR CHEST 2 VIEWS | Routin | 02/03/2014 | | Results for this | | | e | 11:52 PM | | procedure are in the | | | | PST | | results section. | + +--------+ + + + | HISTORICAL LAB PANEL | Routin | 02/03/2014 | | Results for this | | RESULT | e | 11:21 PM | | procedure are in the | | | | PST | | results section. | + +--------+ + + + | ECG 12 LEAD | Routin | 02/03/2014 | | Results for this | | | e | 11:02 PM | | procedure are in the | | | | PST | | results section. | + +--------+ + + + documented in this encounter Results XR Chest 2 Vws (02/03/2014 11:52 PM PST) + + | Specimen | + + | | + + + + + | Impressions | Performed At | + + + | 1. No radiographic evidence of acute pulmonary disease at this | | | point in time. Correlate clinically | | + + + + + + | Narrative | Performed At | + + + | [facility] XR CHEST 2 VIEW FRONTAL AND LATERAL 02/03/2014 11:52 | | | PM HISTORY: 58 years. Male. Chest pain TECHNIQUE: XR | | | CHEST 2 VIEW FRONTAL AND LATERAL. Dual-energy. Total of 4 images | | | obtained. COMPARISON: 01/18/2014 FINDINGS: The heart is | | | [...] CHEST 2 VIEW FRONTAL | | AND VQPOTOA3402/03/2014 11:52 PM HISTORY:58 years. Male. Chest pain TECHNIQUE:XR CHEST 2 | | VIEW FRONTAL AND LATERAL. Dual-energy. Total of 4 images obtained. | | COMPARISON:01/18/2014 FINDINGS:The heart is normal in size. The pulmonary vascular | | pattern is normal. Lungs are well aerated. No acute airspace disease, parenchymal | | nodule, mass, pleural effusion or pneumothorax is noted. The osseous structures are | | normal. IMPRESSION: 1. No radiographic evidence of acute pulmonary disease at this | | point in time. Correlate clinically Electronically signed by Addison Jackson MD on | | 02/04/2014 12:03 AM | | | |COMPARISON: | |01/18/2014 | | | |FINDINGS: | |The heart is normal in size. The pulmonary vascular pattern is normal. Lungs are well aer ated. No acute airspace disease, parenchymal nodule, mass, pleural effusion or pneumothorax is noted. The osseous structures are normal. | | | |IMPRESSION: | |1. No radiographic evidence of acute pulmonary disease at this point in time. Correlate cl inically | | | | | | | | | + + HISTORICAL LAB PANEL RESULT (02/03/2014 11:21 PM PST) + + + + + -+ | Component | Value | Ref Range | Performed | Pathologist | | | | | At | Signature | + + + + + -+ | WBC | 9.1Comment: Testing | 3.8 - 11.0 K/uL | EXTERNAL | | | | performed at [facility] | | LAB | | | | [address];[place], [place] | | | | | | [address] | | | | + + + + + -+ | Non- | 4.64Comment: Testing | 4.20 - 5.70 | EXTERNAL | | | Red Blood | performed at [facility];[address] | M/uL | LAB | | | Cells | [address];[place] | | | | | Counted | [address] | | | | + + + + + -+ | Hemoglobin | 11.9 (L)Comment: Testing | 13.2 - 17.0 | EXTERNAL | | | | performed at [facility];[address] | g/dL | LAB | | | | [address];[place] | | | | | | [address] | | | | + + + + + -+ | Hematocrit, | 37.1 (L)Comment: Testing | 39.0 - 50.0 % | EXTERNAL | | | POC | performed at [facility];[address] | | LAB | | | | [address];[place] | | | | | | [address] | | | | + + + + + -+ | MCV | 80.0Comment: Testing | 80.0 - 100.0 fl | EXTERNAL | | | | performed at [facility];[address] | | LAB | | | [address];[place] | | | | | | [address] | | | | + + + + + -+ | MCH | 25.6 (L)Comment: Testing | 27.0 - 34.0 pg | EXTERNAL | | | | performed at [facility];[address] | | LAB | | | | [address];[place] | | | | | | [address] | | | | + + + + + -+ | MCHC | 32.0Comment: Testing | 32.0 - 35.5 | EXTERNAL | | | | performed at [facility];[address] | g/dL | LAB | | | | [address];[place] | | | | | | [address] | | | | + + + + + -+ | RDW-CV | 43.3Comment: Testing | 37 - 53 fl | EXTERNAL | | | | performed at [facility];[address] | | LAB | | | [address];[place] | | | | | | [address] | | | | + + + + + -+ | Platelet | 257Comment: Testing | 150 - 400 K/uL | EXTERNAL | | | Count | performed at [facility];[address] | | LAB | | | Plasma | [address];[place] | | | | | | [address] | | | | + + + + + -+ | MPV | 7.8Comment: Testing | fl | EXTERNAL | | | | performed at [facility];[address] | | LAB | | | | [address];[place] | | | | | | [address] | | | | + + + + + -+ | Differentia | AUTOMATEDComment: | | EXTERNAL | | | l Type | Testing performed at | | LAB | | | | [facility];[address];[place] [address] | | | | + + + + + -+ | % Segmented | 57.8Comment: Testing | % | EXTERNAL | | | | performed at [facility];[address] | | LAB | | | Neutrophils | [address];[place] | | | | | | [address] | | | | + + + + + -+ | % | 27.3Comment: Testing | % | EXTERNAL | | | Lymphocytes | performed at [facility];[address] | | LAB | | | [address];[place] | | | | | | [address] | | | | + + + + + -+ | % Monocytes | 10.2Comment: Testing | % | EXTERNAL | | | | performed at [facility];[address] | | LAB | | | | [address];[place] | | | | | | [address] | | | | + + + + + -+ | % | 3.5Comment: Testing | % | EXTERNAL | | | Eosinophils | performed at [facility];[address] | | LAB | | | [address];[place] | | | | | | [address] | | | | + + + + + -+ | % Basophils | 1.2Comment: Testing | % | EXTERNAL | | | | performed at [facility];[address] | | LAB | | | | [address];[place] | | | | | | [address] | | | | + + + + + -+ | Absolute | 5.2Comment: Testing | 1.9 - 7.4 K/uL | EXTERNAL | | | Segmented | performed at [facility];[address] | | LAB | | | Neutrophils | [address];[place] | | | | | | [address] | | | | + + + + + -+ | Absolute | 2.5Comment: Testing | 1.0 - 3.9 K/uL | EXTERNAL | | | Lymphocytes | performed at [facility];[address] | | LAB | | | | [address];[place] | | | | | | [address] | | | | + + + + + -+ | Absolute | 0.9 (H)Comment: Testing | 0 - 0.8 K/uL | EXTERNAL | | | Monocytes | performed at [facility];[address] | | LAB | | | | [address];[place] | | | | | | [address] | | | | + + + + + -+ | Absolute | 0.3Comment: Testing | 0 - 0.5 K/uL | EXTERNAL | | | Eosinophils | performed at [facility];[address] | | LAB | | | | [address];[place] | | | | | | [address] | | | | + + + + + -+ | Absolute | 0.1Comment: Testing | 0 - 0.1 K/uL | EXTERNAL | | | Basophils | performed at [facility];[address] | | LAB | | | | [address];[place] | | | | | | [address] | | | | + + + + + -+ | Na | 140Comment: Testing | 135 - 143 | EXTERNAL | | | | performed at [facility];[address] | mmol/L | LAB | | | | [address];[place] | | | | | | [address] | | | | + + + + + -+ | K | 4.1Comment: Testing | 3.5 - 4.9 | EXTERNAL | | | | performed at [facility];[address] | mmol/L | LAB | | | | [address];[place] | | | | | | [address] | | | | + + + + + -+ | Cl | 103Comment: Testing | 99 - 109 mmol/L | EXTERNAL | | | | performed at [facility];[address] | | LAB | | | | [address];[place] | | | | | | [address] | | | | + + + + + -+ | CO2 | 30Comment: Testing | 23 - 32 mmol/L | EXTERNAL | | | | performed at [facility];[address] | | LAB | | | | [address];[place] | | | | | | [address] | | | | + + + + + -+ | Anion Gap | 11Comment: Testing | 5 - 20 mmol/L | EXTERNAL | | | | performed at [facility];[address] | | LAB | | | | [address];[place] | | | | | | [address] | | | | + + + + + -+ | Glucose, | 278 (H)Comment: Testing | 65 - 99 mg/dL | EXTERNAL | | | Fasting | performed at [facility];[address] | | LAB | | | | [address];[place] | | | | | | [address] | | | | + + + + + -+ | BUN | 14Comment: Testing | 8 - 25 mg/dL | EXTERNAL | | | | performed at [facility];[address] | | LAB | | | | [address];[place] | | | | | | [address] | | | | + + + + + -+ | Creatinine | 1.28Comment: Testing | 0.70 - 1.30 | EXTERNAL | | | | performed at [facility];[address] | mg/dL | LAB | | | | [address];[place] | | | | | | [address] | | | | + + + + + -+ | BUN/Creatin | 11Comment: Testing | | EXTERNAL | | | ine Ratio | performed at [facility];[address] | | LAB | | | | [address];[place] | | | | | | [address] | | | | + + + + + -+ | Calcium | 8.4 (L)Comment: Testing | 8.5 - 10.2 | EXTERNAL | | | | performed at [facility];[address] | mg/dL | LAB | | | | [address];[place] | | | | | | [address] | | | | + + + + + -+ | Protein, | 6.7Comment: Testing | 6.3 - 8.2 g/dL | EXTERNAL | | | Total | performed at [facility];[address] | | LAB | | | | [address];[place] | | | | | | [address] | | | | + + + + + -+ | Albumin | 3.0 (L)Comment: Testing | 3.6 - 5.0 g/dL | EXTERNAL | | | | performed at [facility];[address] | | LAB | | | | [address];[place] | | | | | | [address] | | | | + + + + + -+ | Globulin | 3.7Comment: Testing | 1.3 - 4.9 g/dL | EXTERNAL | | | | performed at [facility];[address] | | LAB | | | | [address];[place] | | | | | | [address] | | | | + + + + + -+ | A/G Ratio | 0.8 (L)Comment: Testing | 1.0 - 2.4 | EXTERNAL | | | | performed at [facility];[address] | | LAB | | | | [address];[place] | | | | | | [address] | | | | + + + + + -+ | Bilirubin | 0.2Comment: Testing | 0.1 - 1.5 mg/dL | EXTERNAL | | | Total | performed at [facility];[address] | | LAB | | | | [address];[place] | | | | | | [address] | | | | + + + + + -+ | ALP, | 76Comment: Testing | 35 - 115 U/L | EXTERNAL | | | External | performed at [facility];[address] | | LAB | | | | [address];[place] | | | | | | [address] | | | | + + + + + -+ | AST | 17Comment: Testing | 10 - 45 U/L | EXTERNAL | | | | performed at [facility];[address] | | LAB | | | | [address];[place] | | | | | | [address] | | | | + + + + + -+ | ALT | 21Comment: Testing | 10 - 65 U/L | EXTERNAL | | | | performed at [facility];[address] | | LAB | | | | [address];[place] | | | | | | [address] | | | | + + + [...] | | | | | | at [facility];[address] | | | | | | [address];[place] [address] | | | | + + + + + -+ | CK, Total | 117Comment: Testing | 55 - 400 U/L | EXTERNAL | | | | performed at [facility];[address] | | LAB | | | | [address];[place] | | | | | | [address] | | | | + + + [...] | | | | | performed at [facility];[address] | | | | | | [address];[place] | | | | | | [address] | | | | + + + + + -+ | aPTT, | 24Comment: Testing | 23 - 32 seconds | EXTERNAL | | | Patient | performed at [facility];[address] | | LAB | | | | [address];[place] | | | | | | [address] | | | | + + + + + -+ | CK-MB | 3.5Comment: Testing | 0.5 - 3.6 ng/mL | EXTERNAL | | | | performed at [facility];[address] | | LAB | | | | [address];[place] | | | | | | [address] | | | | + + + [...] + +---------+ + + ECG 12 lead (02/03/2014 11:02 PM PST) + + + + + [...] of | | | | | | 18-JAN-2014 | | | | | | 18:22,Aberrant | | | | | | conduction is no longer | | | | | [...] | | | | editor managing director Keyla Gregory | | | | | | (25) on 02/04/2014 | | | | | | 2:45:51 AM | | | | + + [...] + | Diagnosis | + + | Viral URI with cough Acute upper respiratory infections of unspecified site | + + | Acute chest pain Chest pain, unspecified | + + | Hyperglycemia Other abnormal glucose | + + documented in this encounter
--- OUTSIDE RECORDS SUMMARY | ~2019-10-12 | XMS | Encounter Summary ---
Demographics + + + | Address | [address] | | | [place] [address] | + + + | Home Phone [...] Sammi Kohler | ECON | [place] [address] | | + + + + + Care Team Providers + +------+ + | Care Gas Utility Worker Name | Role | Phone | + +------+ + | Mik Diego DO | PCP | | + +------+ + Encounter Details +--------+ + + + + | Date | Type | Department | Care Team | Description | +--------+ + + + + | 09/18/ | Orders Only | [facility] | Jevon Vargas | | | 2012 | | [facility] | B, DO [address] | | | | | [address] | | | | | [address] | [place] [address] | | | | | [place], [place] | [phone] | | | | | [address] | | | | | | [phone] | | | +--------+ + + + [...] 2020 | visit | | [address] | | | | | | [place], | | | | | | [place] [address] | | | | | | [phone] | | | | | | | [...] GIVEN Testing | | | performed at [facility];[address] [place] [address];[place] [address] CULTURE | | | 10,000 TO 50,000 CFU/ML MIXED GRAM | | | POSITIVE AND GRAM NEGATIVE DIDI | | | NO FURTHER WORKUP | | | Testing performed at [facility], [address], | | | [place] [address] REPORT STATUS | | | 09/19/2012 FINAL [...]
--- OUTSIDE RECORDS SUMMARY | ~2019-10-12 | XMS | Encounter Summary ---
Demographics + + + | Address | [address] | | | [place] [address] | + + + | Home Phone [...] + | Sammi Kohler | ECON | [place] [address] | | + + + + + Care Team Providers + +------+ + | Care Marine Engineer Name | Role | Phone | + +------+ + | Mireya Pack NP | PCP | | + +------+ + Reason for Visit + + + | Reason | Comments | + + + | Hospital Follow-up | | + + + Encounter Details +--------+ + + + + | Date | Type | Department | Care Team | Description | +--------+ + + + + | 01/07/ | Telephone | [facility] | Mireya Pack, | Hospital Follow-up | | 2019 | | [facility] [address] | COARSE WIRE DRAWER [address] | | | | | [address] | [address] [place], | | | | | [place], [place] | [place] [address] | | | | | [address] | [phone] | | | | | [phone] | | | +--------+ + + + [...] Telephone Encounter - Lucia Amos RN - 01/07/2019 9:49 AM [facility] verified that they received the discharge summary from the hospital and that [facility] do not have any questions about it. He requested for his apt next week to be moved this [place], apt rescheduled on Monday with PCP. He does not have a BP machine and have not monitored his BP reading. Did inform patient abo ut the importance of keeping an eye on BP reading if he is on med like carvedilol, hydralazi ne and lisinopril. He is taking his meds as ordered. Patient is hard to understand when talk ing as his sentences run together, did ask for him to speak slow. He lives by [facility] in [facility]. He said that he is requesting for PCP to do a script for a BP machine. Also he said that he is drinking fluids daily, informed him that if he is low on fluids this will cause dizzi ness as well. He stated understanding. Taking meclizine from Dr. Riley for his dizziness, reminded him to take this as needed a s ordered. He again stated understanding. elephone Encounter - Doris Singleton Emre - 01/07/2019 9:19 AM HECTOR hoffman , is calling regarding No chief complaint on file. and would like a call back. Additional Call Details: Kevyn stated that he was in the er for dizzy spells. Kevyn stated that he has an appointment On 01.16 but would like to be seen sooner as he is still having dizzy spells. Please advise him. If this is a symptom based call, was patient offered triage? Not Applicable If this is a symptom based call and you were unable to immediately transfer the call to a ashley pascual fitness supervisor was caller made aware that if at any time he feels it is an emergency they latisha uld call 911 or go to the nearest emergency room? no documented in this e ncounter Plan of [...] [place], | | | | | | [place] [address] | | | | | | [phone] | | | | | | | | +--------+ + + + + documented as of this encounter Visit Diagnoses Not on filedocumented in this encounter"
--- OUTSIDE RECORDS SUMMARY | ~2019-10-12 | XMS | Encounter Summary ---
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, | diabetes mellitus | | | | [place] | Vice President Global Digital Marketing | with hyperglycemia | | | | [address] | | ([facility]) | | | | [phone] | | | +--------+ + + + [...] | 10/16/ | Anti-coag | Anticoagulation | Nik Brittany | | | 2019 | visit | | [address] | | | | | | [place], | | | | | | [place] [address] | | | | | | [phone] | | | | | | | [...] | | | | | performed at [facility];[address] | | | | | | [facility] | | | | | | [facility];[place] [address] | | | | | | | | | | + + + + + + + + | Specimen | + + | Blood | + + + + + + + | Performing | Address | City/State/Zipcode | Phone Number | | Organization | | | | + + + + + | REFERENCE LAB | [address] [place] [address] | [place], [place] | [phone] | | [facility] | Bl[address] | [address] | | | LABORATORY | | | | + + + + + | REFERENCE LAB | [address] [place] [address] | [place], [place] | | | [facility] | Bl[address]. | [address] | | | LABORATORY | | | [...] REFERENCE | | | | performed at [facility];[address] | uIU/mL | LAB | | | | [facility] | | [facility] | | | | Blvd;[place] [address] | | LABORATORY | | + + + + + + + + | Specimen | + + | Blood | + + + + + + + | Performing | Address | City/State/Zipcode | Phone Number | | Organization | | | | + + + + + | REFERENCE LAB | [address] [place] [address] | [place] | [phone] | | [facility] | Bl[address] | [address] | | | LABORATORY | | | | + + + + + | REFERENCE LAB | [address] [place] [address] | [place] | | | [facility] | Bl[address]. | [address] | | | LABORATORY | | | [...] REFERENCE | | | | performed at [facility];[address] | | LAB | | | | [place] | | [facility] | | | | Bl[address];[place] [address] | | LABORATORY | | + + + + + + + + | Specimen | + + | Blood | + + + + + + + | Performing | Address | City/State/Zipcode | Phone Number | | Organization | | | | + + + + + | REFERENCE LAB | [address] [facility] | [place] | [phone] | | [facility] | [address] | [address] | | | LABORATORY | | | | + + + + + | REFERENCE LAB | [address] | [place] | | | [facility] | Bl[address]. | [address] | | | LABORATORY | | | [...] | | | Absolute | performed at [facility];[address] | K/uL | LAB | | | | [place] | | [facility] | | | | Bl[address];[place] [address] | | LABORATORY | | + + + + + + + + | Specimen | + + | Blood | + + + + + + + | Performing | Address | City/State/Zipcode | Phone Number | | Organization | | | | + + + + + | REFERENCE LAB | [address] [facility] [facility] | [place], [place] | [phone] | | [facility] | [address] | [address] | | | LABORATORY | | | | + + + + + | REFERENCE LAB | [address] [facility] | [place] | | | [facility] | [address]. | [address] | | | LABORATORY | | | [...] | NGSP and traceable to | | [facility] | | | | the DCCT reference [...] | | | | | performed at [facility];[address] | | | | | | [facility] | | | | | | [facility];[place] [address] | | | | | | | | | | + + + + + + + + | Specimen | + + | Blood | + + + + + + + | Performing | Address | City/State/Zipcode | Phone Number | | Organization | | | | + + + + + | REFERENCE LAB | [address] | [place] | [phone] | | [facility] | Bl[address] | [address] | | | LABORATORY | | | | + + + + + | REFERENCE LAB | [address] [facility] | [place] | | | [facility] | Bl[address]. | [address] | | | LABORATORY | | | [...]
--- OUTSIDE RECORDS SUMMARY | ~2019-10-12 | XMS | Encounter Summary ---
Demographics + + + | Address | [address] | | | [place] [address] | + + + | Home Phone [...] Sammi Kohler | ECON | [place] [address] | | + + + + + Care Team Providers + +------+ + | Care Ict Teacher Name | Role | Phone | + +------+ + | Mireya Pack NP | PCP | | + +------+ + Encounter Details +--------+ + + + + | Date | Type | Department | Care Team | Description | +--------+ + + + + | 02/25/ | Orders Only | [facility] | Samson Blanchard | | | 2016 | | CONVERSION [address]P [address] | MD [address] | | | | | [address] | [facility] | | | | | [place], [place] | [place] [address] | | | | | [address] | [phone] | | | | | [phone] | | | +--------+ + + + [...] | | | | | [place], | | | | | | [place] [address] | | | | | | [phone] | | | | | | | [...]
--- OUTSIDE RECORDS SUMMARY | ~2019-10-12 | XMS | Encounter Summary ---
Demographics + + + | Address | [address] | | | [place] [address] | + + + | Home Phone [...] + | Sammi Kohler | ECON | [place] [address] | | + + + + + Care Team Providers + +------+ + | Care Brush Loader And Handle Attacher Name | Role | Phone | + +------+ + PCP | Unavailable | + +------+ + Encounter Details +--------+ + + + + | Date | Type | Department | Care Team | Description | +--------+ + + + + | 09/21/ | Emergency | [facility] | Kristian Mae | Post-op bleeding | | 2012 | | MEDICAL CENTER | [address] | | | | | EMERG[facility]Y CENTER | [place], | | | | | [address] [facility] [facility] | [place] [address] | | | | | [place], [place] | [phone] | | | | | [address] | | | | | | [phone] | | | +--------+ + + + [...] Notes Conversion Transaction, Provider Unknown - 09/21/2012 10:46 AM PDTFormatting of this note m ight be different from the original. ED Notes by Maribeth Lew RN at 09/21/121045 Author: Maribeth Lew RN Service: (none) Author Type: Registered Nurse Filed: 09/21/121047 Date of Service: 09/21/121045 Status: Signed Autopsy Pathologist: Maribeth Lew RN (Registered Nurse) Disposable shirt and sweat pants given for ride home, SIMONA wrap wrapped around ABD for suppo rt of abd Maribeth Lew RN 08/16/13 1048 onver ivana Transaction, Provider Unknown - 09/21/2012 10:36 AM PDT ED Notes by Maribeth Lew RN at 09/21/12 1036 Author: Maribeth Lew RN Service: (none) Author Type: Registered Nurse Filed: 09/21/12 1037 Date of Service: 09/21/12 1036 Status: Signed Autopsy Pathologist: Maribeth Lew RN (Registered Nurse) Dressing changed and abdomen cleaned with shur cleanse and NS, new ABD and 4x4 applied, pa tient family concerned that bleeding will not stop and wish to talk with MD Maribeth Lew RN 09/21/12 1037 onver ivana Transaction, Provider Unknown - 09/21/2012 9:39 AM PDT ED Notes by Maribeth Lew RN at 09/21/12 0939 Author: Maribeth Lew RN Service: (none) Author Type: Registered Nurse Filed: 09/21/12938 Date of Service: 09/21/12938 Status: Signed Autopsy Pathologist: Maribeth Lew RN (Registered Nurse) Urinal given Maribeth Lew RN 09/21/12938 onver ivana Transaction, Provider Unknown - 09/21/2012 9:32 AM PDT ED Notes by Maribeth Lew RN at 09/21/12 0932 Author: Maribeth Lew RN Service: (none) Author Type: Registered Nurse Filed: 09/21/12931 Date of Service: 09/21/12931 Status: Signed Autopsy Pathologist: Maribeth Lew RN (Registered Nurse) at bedside Maribeth Lew RN 09/21/12931 Kristian Vinson MD - 09/21/2012 9:31 AM PDT ED Provider Notes by Kristian Mae MD at 09/21/12930 Author: Kristian Mae MD Service: (none) Author Type: Physician Filed: 09/21/122045 Date of Service: 09/21/12930 Status: Signed Autopsy Pathologist: Kristian Mae MD (Physician) [facility] Department of Emergency Medicine 9:32 AM History of Present Illness Patient Identification Kevyn Guzman is a 56 y.o. male. Patient information was obtained from patient. History/Exam limitations: none. Patient presented to the Emergency Department by: Ambulance Chief Complaint Chief Complaint Patient presents with Post-op Problem bleeding from post op wound umbilical site. pt shorts are moderately saturated. when he s tands up it drains. The patient presents to ED with complaints of bleeding from abdominal surgical site. Pt sta sarah that when he is laying still the symptoms are not bad, but when he moves around, his lisy gical site leaks some blood. The symptoms are described to be of mild severity. The pt has no other complaints at this time and there has been no care prior to arrival. Pt had a lap aroscopic cholecystectomy on 09/12/[address] Vargas. He was in earlier today and had a sutu re placed in the ER to reduce bleeding from his lower stab incision site. PCP: JERRELL GUTIÉRREZ Past Medical History Diagnosis [...] daily. Yes Historical Provider aspirin 81 MG tablet Take 1 tablet by mouth daily with breakfast. 09/14/12 09/14/13 Yes Augustine Agosto MD atenolol (TENORMIN) 100 MG tablet Take 200 mg by mouth nightly. Yes Historical Provider cloNIDine (CATAPRES) 0.1 MG tablet Take 1 tablet by mouth 2 (two) times daily. 09/14/12 4 Yes Augustine Agosto MD clopidogrel (PLAVIX) 75 MG [...] (twelve) hours. 09/14/12 Yes Augustine Agosto MD glipiZIDE (GLUCOTROL) 5 MG tablet Take 5 mg by mouth 2 (two) times daily before meals. Yes Historical Provider ipratropium-albuterol (COMBIVENT) 18-103 MCG/ACT inhaler Inhale 2 puffs into the lungs ever y 6 (six) hours as needed for Wheezing. 08/14/12 08/14/13 Yes Josefa Ramon MD lisinopril (PRINIVIL,ZESTRIL) 20 MG tablet Take 1 tablet by mouth daily. 09/14/12 09/14/13 Yes Augustine Agosto MD METFORMIN HCL PO Take 1,000 mg by mouth 2 (two) times daily. Yes Historical Provider oxyCODONE-acetaminophen (ROXICET) 5-325 MG per tablet Take 1-2 tablets by mouth every 4 (fo ur) hours as needed for Pain. 09/13/12 09/23/12 Yes Jevon Vargas, DO paroxetine (PAXIL) 40 MG tablet Take 40 mg by mouth every morning. Yes Historical Provi carlos pravastatin (PRAVACHOL) 20 MG tablet Take 20 mg by mouth nightly. Yes Historical Provider ranitidine (ZANTAC) 150 MG tablet Take 1 tablet by mouth 2 (two) times daily. 12/13/11 Yes Yaakov Bridges, DO tiotropium (SPIRIVA) 18 MCG inhalation capsule Inhale 18 mcg into the lungs daily. Yes Hi storical Provider niacin (NIASPAN) 500 MG CR tablet Take 500 mg by mouth 2 (two) times daily. 2 tabs in am, 1 tab in pm 09/21/12 Historical Provider TAMSULOSIN HCL PO Take 0.4 mg by mouth. 09/21/12 Historical Provider triamterene-hydrochlorothiazide (MAXZIDE) 75-50 MG per tablet Take 1 tablet by mouth daily. 09/21/12 Historical Provider Allergies Allergen Reactions B12-Ca Rash "B12" [...] sore throat CV/Resp: Negative for chest pain, ocstyohgz-ze-ljwryj, cough GI: Negative for nausea, vomiting, or diarrhea : Negative for urinary problems Musculoskeletal: Negative for back pain, joint pain Skin: Negative for rash Positive: bleeding from abdominal surgical site. Neuro/Psych: Negative for headache Endo/heme/Lymph: Negative for swollen lymph nodes, easy bruising All other systems reviewed and negative except as noted. Physical Exam BP 131/65 | Pulse 83 | Temp 97.4 F (36.3 C) (Oral) | Resp 16 Vital signs interpretation: WNL Pulse Oximetry interpretation: Normal General: Alert, awake, and oriented, in no apparent distress Eyes: Normal inspection, pupils equal and round, non-icteric ENT: Atraumatic Ears normal external inspection Nose normal external inspection Neck: Normal inspection, normal ROM with no apparent pain No lymphadenopathy Cardiovascular: Rate and rhythm normal No murmurs, no bruit or gallop Good distal pulses and good cap refill Chest: Non tender, good excursion Respiratory: Breath sounds normal bilaterally No rales, wheezing or rhonchi No accessory muscle use Abdomen: Soft, non-tender at this time, non-distended Normal active bowel sounds No organomegaly Small incisions from recent lap cholecystectomy which appear to be healing well. No acti ve bleeding though there is some dried blood on the lower abdomen from the mid abdomen incis ion. No guarding or rebound Back: Normal inspection, good ROM Extremities: No edema, good ROM without pain Skin: Color normal Warm and dry No rash Neuro: Alert, no AMS No motor deficit No sensory deficit Medical Decision Making and Emergency Department Course ED Department Course Patient presents to ED with complaints of leakage from surgical site. Will consult Dr. Aggie womack and then reevaluate the patient. Patient is stable at this time. 9:56 AM Pt's case d/w Dr. Vargas, general surgery, who recommends applying a pressure dressing ove r the wound. 10:36 AM Patient reevaluation. Patient is stable at this time and has clean wound dressing in place. I discussed all ED results and my clinical impression with the patient. Patient is ready fo r discharge. I advised patient to follow up with a Dr Vargas for his scheduled appt this co chasity week and we discussed the emergent signs and symptoms that would necessitate a return t o ED. All questions and concerns addressed. Records Reviewed Old medical records. Nursing notes. Previous [facility] ED visits for unrelated complaints. Old ED records reviewed (Using the electronic record system of [facility], I ailyn arellano reviewed the records with regard to the past medical/surgical history, previous medic ations, and allergies). ED Diagnosis Final diagnosis Post-op bleeding Disposition: ED Disposition Orders Discharge Condition at discharge: Stable Follow-up Information Follow up With Details Comments Contact Info Jevon Vargas DO as scheduled [address] [facility] [place] [address] [facility] [address] [facility] Emergency Department As needed if symptoms worsen [address] [facility] [address] Jerrell Gutiérrez DO Additional Documentation Procedures Attending Note: Documentation assistance provided by Rimma Henning (Scribe). Information recorded by the scribe has been reviewed and validated by me. I ag ree with its contents. MD Kristian Silverman MD 09/21/122045 onversion Merchant saction, Provider Unknown - 09/21/2012 9:30 AM PDTFormatting of this note might be differen t from the original. ED Notes by Maribeth Lew RN at 09/21/12929 Author: Maribeth Lew RN Service: (none) Author Type: Registered Nurse Filed: 09/21/12930 Date of Service: 09/21/12929 Status: Signed Autopsy Pathologist: Maribeth Lew RN (Registered Nurse) Patient states that he was here early this am and had problems with bleeding from his umbil ical incision from his recent rupesh, he denies problems with his other incisions and he robert es n/v or diarrhea, he is not jaundiced, patient is pleasant and calm, he has no other compl aints Maribeth Lew RN 09/21/12930 onver ivana Badillo, Provider Unknown - 09/21/2012 9:18 AM PDT ED Notes by Maribeth Lew RN at 09/21/12917 Author: Maribeth Lew RN Service: (none) Author Type: Registered Nurse Filed: 09/21/12917 Date of Service: 09/21/12917 Status: Signed Autopsy Pathologist: Maribeth Lew RN (Registered Nurse) Bed:02
Expected date:
Expected time:
Means of arrival:[facility] 1723
C omments:
Post op bleeding from op site 154/98, HR 82, conscious and alert docume nted in this encounter Plan of Treatment +--------+ + + + + | Date | Type | Specialty | Care Team | Description | +--------+ + + + + | 10/16/ | Anti-coag | Anticoagulation | Brittany Zaragoza | | | 2020 | visit | | [address] | | | | | | [place], | | | | | | [place] [address] | | | | | | [phone] | | | | | | | | +--------+ + + + + documented as of this encounter Visit Diagnoses + + | Diagnosis | + + | Post-op bleeding Hemorrhage complicating a procedure | + + documented in this encounter
--- OUTSIDE RECORDS SUMMARY | ~2019-10-12 | XMS | Encounter Summary ---
Demographics + + + | Address | [address] [facility] [address] | | | [place] [address] | + + + | Home Phone [...] + | Sammi Kohler | ECON | [place] [address] | | + + + + + Care Team Providers + +------+ + | Care Chain Hooker Name | Role | Phone | + [...] | MEDICAL CENTER | MD Anat[facility] Camacho [facility] | [facility] | | | | EMERGENCY CENTER | [place], [place] | | | | | [address] [facility] | [address] | | | | | [place], [place] | | | | | | [address] | | | | | | [phone] | | | +--------+ + + + [...] Almeida PA-C Service: (none) Author Type: Physician Training Professional - Certifie d Filed: 01/10/142107 Date of Service: 01/09/142142 Status: Attested Community Support Worker: yDlan Almeida PA-C (Physician Training Professional - Certified) Cosigner: Bimal blanchard DO at 01/14/14 155 Procedure Orders: 1. POCT occult blood stool [[id number]] ordered by Dylan Almeida PA-C at 01/09/142148 Attestation signed by Bimal Ramirez DO at 01/14/142 I have discussed the treatment and care plan with the midlevel and I agree with the treatme nt and patient management plan as discussed. Guaiac negative stool. Performed by ED provider. Hemoccult personnel quality assurance auditor Passed. [facility] Department of Emergency Medicine HPI History of Present Illness Patient Identification Norah Gr is a 58 y.o. male. Patient information was obtained from patient. History/Exam limitations: none. Patient presented to the Emergency Department by: [facility] 1721 Chief Complaint Chief Complaint [...] into the lungs as needed. Historical Provider Mdrap-J-Pgdipzlqhzxps (BEANO) TABS Take 150 Units by mouth 3 (three) times daily as needed (As needed for gas). Historical Provider amLODIPine (NORVASC) 10 MG tablet Take 1 tablet by mouth daily. 12/03/13 Augusitne ramírez MD antipyrine-benzocaine (AURALGAN) otic solution Place [...] 100 mg by mouth nightly. Historical Provider agkmhfhis-qrzfjwqw-mjcobndnf hydroxide-simethicone Take 40 mLs by mouth daily [...] Procedure Component Value Ref Range Date/Time Lipase [[id number]] Collected: 01/09/142199 Order Status: Completed Updated: 01/09/142232 Specimen Information: Blood LIPASE 82 73 - 393 U/L Comprehensive metabolic panel [[id number]] (Abnormal) Collected: 01/09/142199 Order Status: Completed Updated: [...] 47 (L) >60 mL/min/1.73m2 CBC with differential [[id number]] (Abnormal) Collected: 01/09/142199 Order Status: Completed Updated: [...] Diego DO Call Schedule follow-up for recheck [address] [facility] [id number] [facility] Emergency Department Go to Return to the ED in 12-24 hours for recheck. [address] [facility] [id number] Discharge Medications: New Prescriptions No new medications Dylan Almeida PA-C 01/10/142107 Bimal Ramirez DO 01/14/14 6532 onversion Yulisa mata, Provider Unknown - 01/09/2014 9:33 PM PSTFormatting of this note might be diffe rent from the original. ED Notes by Carlos Morfin RN at 01/09/142132 Author: Carlos Morfin RN Service: (none) Author Type: Registered Nurse Filed: 01/09/142132 Date of Service: 01/09/142132 Status: Signed Community Support Worker: Carlos Morfin RN (Registered Nurse) 2 patient [...] | | | | | | [facility], | | | | | | [place] [address] | | | | | | [phone] | | | | | | | [...] | stool. Performed by ED provider. Hemoccult personnel quality assurance auditor Passed. | | | [facility] Department of Emergency | | | Medicine HPI History of Present Illness Patient | | | Identification Norah Gr is a 58 y.o. male. Patient | | | information was obtained from patient. History/Exam limitations: | | | none. Patient presented to the Emergency Department by: [facility] | | | 4662 Chief Complaint Chief Complaint Patient presents with [...] Jevon Vargas DO; | | | Location: [facility] MAIN OR; Service: General; Laterality: N/A; | | | | | | Abdominal surgery | | | Cholecystectomy | | | Skin cancer excision 10/10/2012 Procedure: EXCISION - SKIN | | | CANCER; Surgeon: Sy Fierro MD; Location: [facility] MA[facility] OR; | | | Service: Plastics; Laterality: Left; upper arm and upper back | | | w/frozen section | | | Esophagogastroduodenoscopy 03/03/2013 Procedure: | | | ESOPHAGOGASTRODUODENOSCOPY; Surgeon: Howie Gibson MD; Location: [facility] | | | ENDOSCOPY; Service: Gastroenterology; Laterality: N/A; | | | Colonoscopy 03/04/2013 Procedure: COLONOSCOPY; Surgeon: Howie | | | MD Paige; Location: [facility] ENDOSCOPY; Service: Gastroenterology; | | | Laterality: N/A; | | | Upper gastrointestinal endoscopy | | | Skin biopsy | | | Hernia repair 07/03/2013 Procedure: LAPAROSCOPIC - HERNIA - | | | INCISIONAL; Surgeon: Jevon Vargas DO; Location: [facility] MAIN | | | OR; Service: General; Laterality: N/A; Prior to Admission | | | medications Medication Sig Start Date End Date Taking? Authorizing | | | Provider Albuterol Sulfate (VENTOLIN HFA IN) Inhale 2 puffs into | | | the lungs as needed. Historical Provider | | | Oivph-O-Czbwunbnfoyyz (BEANO) TABS Take 150 Units by mouth [...] mouth nightly. Historical Provider | | | lyhisiiwd-dwbiwyao-rkizltyat hydroxide-simethicone Take 40 mLs by | | [...] file Social History Narrative Lives in [facility], | | | IADL, full code Family [...] | | | gastroenteritis and also ileus. 2144 He is currently afebrile and | | | appears in no acute distress. The abdomen is not rigid and has no | | | signs of peritoneal irritation. Plan to order CBC, CMP, lipase, | | | abdominal x-rays, urine. 2244 The labs and abdominal x-rays | | [...] PDT NORAH GRXR ABDOMEN ACUTE | | [id number]/09/2014 10:44 PM HISTORY:58 years. Male. Abdominal pain [...] [place] | | | | | | [address] | | | | + + + + + + | Non- | 4.77Comment: Testing | 4.20 - 5.70 | EXTERNAL | | | Red Blood | performed at [facility] | M/uL | LAB | | | Cells | [address];[place] | | | | | Counted | [address] | | | | + + + + + + | Hemoglobin | 12.3 (L)Comment: Testing | 13.2 - 17.0 | EXTERNAL | | | | performed at [facility] | g/dL | LAB | | | | [address];[place] | | | | | | [address] | | | | + + + + + + | Hematocrit, | 38.1 (L)Comment: Testing | 39.0 - 50.0 % | EXTERNAL | | | POC | performed at [facility] | | LAB | | | | [address];[place] | | | | | | [address] | | | | + + + + + + | MCV | 79.8 (L)Comment: Testing | 80.0 - 100.0 fl | EXTERNAL | | | | performed at [facility] | | LAB | | | | [address];[place] | | | | | | [address] | | | | + + + + + + | MCH | 25.9 (L)Comment: Testing | 27.0 - 34.0 pg | EXTERNAL | | | | performed at [facility] | | LAB | | | | [address];[place] | | | | | | [address] | | | | + + + + + + | MCHC | 32.4Comment: Testing | 32.0 - 35.5 | EXTERNAL | | | | performed at [facility] | g/dL | LAB | | | | [address];[place] | | | | | | [address] | | | | + + + + + + | RDW-CV | 41.1Comment: Testing | 37 - 53 fl | EXTERNAL | | | | performed at [facility] | | LAB | | | | [address];[place] | | | | | | [address] | | | | + + + + + + | Platelet | 284Comment: Testing | 150 - 400 K/uL | EXTERNAL | | | Count | performed at [facility] | | LAB | | | Plasma | [address];[place] | | | | | | [address] | | | | + + + + + + | MPV | 8.0Comment: Testing | fl | EXTERNAL | | | | performed at [facility] | | LAB | | | | [address];[place] | | | | | | [address] | | | | + + + + + + | Differentia | AUTOMATEDComment: | | EXTERNAL | | | l Type | Testing performed at | | LAB | | | | [facility] | [address];[place] [address] | | | | + + + + + + | % Segmented | 78.0Comment: Testing | % | EXTERNAL | | | | performed at [facility] | | LAB | | | Neutrophils | [address];[place] | | | | | | [address] | | | | + + + + + + | % | 14.1Comment: Testing | % | EXTERNAL | | | Lymphocytes | performed at [facility] | | LAB | | | | [address];[place] | | | | | | [address] | | | | + + + + + + | % Monocytes | 6.5Comment: Testing | % | EXTERNAL | | | | performed at [facility] | | LAB | | | | [address];[place] | | | | | | [address] | | | | + + + + + + | % | 0.3Comment: Testing | % | EXTERNAL | | | Eosinophils | performed at [facility] | | LAB | | | | [address];[place] | | | | | | [address] | | | | + + + + + + | % Basophils | 1.1Comment: Testing | % | EXTERNAL | | | | performed at [facility] | | LAB | | | | [address];[place] | | | | | | [address] | | | | + + + + + + | Absolute | 11.0 (H)Comment: Testing | 1.9 - 7.4 K/uL | EXTERNAL | | | Segmented | performed at [facility] | | LAB | | | Neutrophils | [address];[place] | | | | | | [address] | | | | + + + + + + | Absolute | 2.0Comment: Testing | 1.0 - 3.9 K/uL | EXTERNAL | | | Lymphocytes | performed at [facility] | | LAB | | | | [address];[place] | | | | | | [address] | | | | + + + + + + | Absolute | 0.9 (H)Comment: Testing | 0 - 0.8 K/uL | EXTERNAL | | | Monocytes | performed at [facility] | | LAB | | | | [address];[place] | | | | | | [address] | | | | + + + + + + | Absolute | 0.0Comment: Testing | 0 - 0.5 K/uL | EXTERNAL | | | Eosinophils | performed at [facility] | | LAB | | | | [address];[place] | | | | | | [address] | | | | + + + + + + | Absolute | 0.2 (H)Comment: Testing | 0 - 0.1 K/uL | EXTERNAL | | | Basophils | performed at [facility] | | LAB | | | | [address];[place] | | | | | | [address] | | | | + + + [...] | LAB | | | | [address];[place], [place] | | | | | | [address] | | | | + + + [...] [place] | | | | | | [address] | | | | + + + + + + | K | 4.2Comment: Testing | 3.5 - 4.9 | EXTERNAL | | | | performed at [facility] | mmol/L | LAB | | | | [address];[place] | | | | | | [address] | | | | + + + + + + | Cl | 102Comment: Testing | 99 - 109 mmol/L | EXTERNAL | | | | performed at [facility] | | LAB | | | | [address];[place] | | | | | | [address] | | | | + + + + + + | CO2 | 29Comment: Testing | 23 - 32 mmol/L | EXTERNAL | | | | performed at [facility] | | LAB | | | | [address];[place] | | | | | | [address] | | | | + + + + + + | Anion Gap | 11Comment: Testing | 5 - 20 mmol/L | EXTERNAL | | | | performed at [facility] | | LAB | | | | [address];[place] | | | | | | [address] | | | | + + + + + + | Glucose, | 200 (H)Comment: Testing | 65 - 99 mg/dL | EXTERNAL | | | Fasting | performed at [facility] | | LAB | | | | [address];[place] | | | | | | [address] | | | | + + + + + + | BUN | 25Comment: Testing | 8 - 25 mg/dL | EXTERNAL | | | | performed at [facility] | | LAB | | | | [address];[place] | | | | | | [address] | | | | + + + + + + | Creatinine | 1.62 (H)Comment: Testing | 0.70 - 1.30 | EXTERNAL | | | | performed at [facility] | mg/dL | LAB | | | | [address];[place] | | | | | | [address] | | | | + + + + + + | BUN/Creatin | 16Comment: Testing | | EXTERNAL | | | ine Ratio | performed at [facility] | | LAB | | | | [address];[place] | | | | | | [address] | | | | + + + + + + | Calcium | 8.9Comment: Testing | 8.5 - 10.2 | EXTERNAL | | | | performed at [facility] | mg/dL | LAB | | | | [address];[place] | | | | | | [address] | | | | + + + + + + | Protein, | 7.2Comment: Testing | 6.3 - 8.2 g/dL | EXTERNAL | | | Total | performed at [facility] | | LAB | | | | [address];[place] | | | | | | [address] | | | | + + + + + + | Albumin | 3.4 (L)Comment: Testing | 3.6 - 5.0 g/dL | EXTERNAL | | | | performed at [facility] | | LAB | | | | [address];[place] | | | | | | [address] | | | | + + + + + + | Globulin | 3.7Comment: Testing | 1.3 - 4.9 g/dL | EXTERNAL | | | | performed at [facility] | | LAB | | | | [address];[place] | | | | | | [address] | | | | + + + + + + | A/G Ratio | 0.9 (L)Comment: Testing | 1.0 - 2.4 | EXTERNAL | | | | performed at [facility] | | LAB | | | | [address];[place] | | | | | | [address] | | | | + + + + + + | Bilirubin | 0.3Comment: Testing | 0.1 - 1.5 mg/dL | EXTERNAL | | | Total | performed at [facility] | | LAB | | | | [address];[place] | | | | | | [address] | | | | + + + + + + | ALP, | 87Comment: Testing | 35 - 115 U/L | EXTERNAL | | | External | performed at [facility] | | LAB | | | | [address];[place] | | | | | | [address] | | | | + + + + + + | AST | 16Comment: Testing | 10 - 45 U/L | EXTERNAL | | | | performed at [facility] | | LAB | | | | [address];[place] | | | | | | [address] | | | | + + + + + + | ALT | 25Comment: Testing | 10 - 65 U/L | EXTERNAL | | | | performed at [facility] | | LAB | | | | [address];[place] | | | | | | [address] | | | | + + + [...] [address];[place] [address] | | | | + + + [...]
--- OUTSIDE RECORDS SUMMARY | ~2019-10-12 | XMS | Encounter Summary ---
Demographics + + + | Address | [address] | | | [place] [address] | + + + | Home Phone [...] + | Sammi Kohler | ECON | [place] [address] | | + + + + + Care Team Providers + +------+ + | Care Kit Assembler Name | Role | Phone | + +------+ + PCP | Unavailable | + +------+ + Encounter Details +--------+ + + + + | Date | Type | Department | Care Team | Description | +--------+ + + + + | 04/08/ | Emergency | [facility] | | Chest pain; | | 2015 - | | [facility] | | Pedal edema | | | | [facility] | | | | 04/09/ | | [address] | | | | 2014 | | [place], [place] | | | | | | [address] | | | | | | [phone] | | | +--------+ + + + [...] ED Notes Conversion Transaction, Provider Unknown - 04/09/2014 3:30 AM PSTFormatting of this note m ight be different from the original. ED Notes by Bill Mcgarry RN at 04/09/14329 Author: Bill Mcgarry RN Service: (none) Author Type: Registered Nurse Filed: 04/09/14422 Date of Service: 04/09/14329 Status: Signed Soft Sugar Supervisor: Bill Mcgarry RN (Registered Nurse) Secondary istat troponin was performed with a 0.00 reading Bill Mcgarry RN 04/09/14422 onver ivana Transaction, Provider Unknown - 04/09/2014 3:07 AM PST ED Notes by Bill Mcgarry RN at 04/09/14 0307 Author: Bill Mcgarry RN Service: (none) Author Type: Registered Nurse Filed: 04/09/14432 Date of Service: 04/09/14306 Status: Signed Soft Sugar Supervisor: Bill Mcgarry RN (Registered Nurse) Performed road test per physician request and patient performed road test with no difficult y. O2 saturation was 94% at its lowest and heart rate was 83 at its highest. Bill Mcgarry RN 04/09/14432 onver ivana Transaction, Provider Unknown - 04/09/2014 2:00 AM PST ED Notes by Bill Mcgarry RN at 04/09/14199 Author: Bill Mcgarry RN Service: (none) Author Type: Registered Nurse Filed: 04/09/14431 Date of Service: 04/09/14199 Status: Signed Soft Sugar Supervisor: Bill Mcgarry RN (Registered Nurse) Ambulated to restroom with no difficulty Bill Mcgarry RN 04/09/14431 onver ivana Transaction, Provider Unknown - 04/09/2014 12:41 AM PST ED Notes by Doris Moya at 04/09/1440 Author: Doris Moya Service: (none) Author Type: Automotive Service Management Teacher Filed: 04/09/1440 Date of Service: 04/09/1440 Status: Signed Soft Sugar Supervisor: Doris Moya (Automotive Service Management Teacher) EKG performed by EVE Moya 04/09/1440 rabtr Marcos eastman MD - 04/09/2014 12:26 AM PST ED Provider Notes by Marcos Nugent MD at 04/09/1425 Author: Marcos Nugent MD Service: (none) Author Type: Physician Filed: 04/10/14 0909 Date of Service: 04/09/1425 Status: Signed Soft Sugar Supervisor: Marcos Nugent MD (Physician) [facility] Department of Emergency Medicine History of Present Illness Patient Identification Norah Gr is a 58 y.o. male. Patient information was obtained from patient. History/Exam limitations: none. Patient presented to the Emergency Department by: [facility] 1723 Chief Complaint Chief Complaint Patient presents with Leg Swelling Chest Pain 12:26 AM The patient presents to ED with complaints of chest pain. Location: cardiovascular Quality: pain Severity: moderate Context: The patient was Wii bowling when he began having chest pain. The patient uses a C- pap machine at night. Timing: ongoing Duration: 3 hours Modifying factors: none The patient also complains of leg swelling, cough, chills Patient denies nausea, vomiting, diarrhea, fever PCP: JERRELL GUTIÉRREZ Past Medical History Diagnosis [...] - CHOLECYSTECTOMY; Surgeon: Jevon Vargas DO; Location: [facility] MAIN OR; Service: General; Laterality: N/A; Abdominal surgery Cholecystectomy Skin cancer excision 10/10/2012 Procedure: EXCISION - SKIN CANCER; Surgeon: Sy Fierro MD; Location: [facility] MAIN OR ; Service: Plastics; Laterality: Left; upper arm and upper back w/frozen section Esophagogastroduodenoscopy 03/03/2013 Procedure: ESOPHAGOGASTRODUODENOSCOPY; Surgeon: Howie Gibson MD; Location: [facility] ENDOSCOPY; S ervice: Gastroenterology; Laterality: N/A; Colonoscopy 03/04/2013 Procedure: COLONOSCOPY; Surgeon: Howie Gibson MD; Location: [facility] ENDOSCOPY; Service: Gastroe nterology; Laterality: N/A; Upper gastrointestinal endoscopy Skin biopsy Hernia repair 07/03/2013 Procedure: LAPAROSCOPIC - HERNIA - INCISIONAL; Surgeon: Jevon Vargas DO; Location: [facility] MAIN OR; Service: General; Laterality: N/A; Prior to Admission medications Medication Sig Start Date End Date Taking? Authorizing Provider Albuterol Sulfate (VENTOLIN HFA IN) Inhale 2 puffs into the lungs as needed. 108 mcg/act Historical Provider Sztjf-N-Psqcjokokurvj (BEANO) TABS Take 150 Units by mouth [...] mg at hs 11/30/13 11/30/14 [facility] carlyn Mae MD docusate sodium [...] 100 mg by mouth nightly. Historical Provider mbkpqttfz-snkwcwsy-rbvnwhgqi hydroxide-simethicone Take 40 mLs by mouth daily [...] Brother Review of Systems Constitutional: Positive for chills. Negative for fever. Respiratory: Positive for cough. Cardiovascular: Positive for chest pain and leg swelling. Gastrointestinal: Negative for nausea and vomiting. Skin: Negative for rash. Neurological: Negative for headaches. All other systems reviewed and are negative. Physical Exam Filed Vitals: 04/08/14 2358 BP: 141/69 Pulse: 67 Resp: 18 SpO2: 95% Vital sign interpretation: Hypertensive otherwise normal Pulse Oximetry interpretation: Normal General: Alert, no active distress Eyes: Normal inspection, EOMI, Head: NCAT ENT: Ears normal Nose normal Neck: Normal inspection, Supple, FROM without pain, Cardiovascular: No peripheral edema, Extremity perfusion appears normal Respiratory: Effort normal, No respiratory distress, Lungs are clear. No wheezes. No rhonchi. Abdomen: Nondistended, Soft, nontender, No pulsatile abd masses, No guarding or rebound Back: Normal inspection, normal movement. Skin: No rash Extremities: No deformities, 2+ pitting edema Neuro: Alert, oriented, cranial nerves grossly intact. No gross motor deficits, Psych: Mood normal Lymph: No visible adenopathy Medical Decision Making and Emergency Department Course ED Department Course My DDx includes, but is not limited to: see below. The following medications were given during the course of treatment in the Emergency Depart ment: Medications aspirin chewable tablet 324 mg (324 mg Oral Given 04/09/14 0030) furosemide (LASIX) injection 40 mg (40 mg Intravenous Given 04/09/1454) ipratropium-albuterol (DUO-NEB) 0.5-2.5 mg/3mL nebulizer solution 3 mL (3 mLs Nebulization Given 04/09/1454) MDM: Pleasant 58 y.o. male Differential: Chest pain, CHF, pulmonary edema, pedal edema Patient presents here to the emergency department, indicates that he has had increasing ped al edema over last several days, he was recently started on Lasix for 3 days from through 07 April. And she has been off Lasix for 2 days now. Patient denies any pleuritic chest pain, he does use CPAP at night with a oxygen concentrat or. Patient's vital signs today reveal low normal oxygen levels. Patient does have +2 pitting edema bilaterally We will give him IV Lasix at this time 40 mg restart him on oral Lasix for the next one wee k. He will need close outpatient follow-up. 12:55 AM Labs reviewed. Troponin negative. Patient has received Lasix, he continues to sat well while sleeping 93-94% on room air. La boratory interpretation done at 2:15 AM: Reveals a CPK which is normal at 134, troponin is n ormal, BNP is normal at 16.3, chemistry profile reveals slightly elevated glucose at 157 oth erwise unremarkable, white count is normal. Hemoglobin 12.5. The patient did have a cardiac catheter done revealed the following 6 months ago. CONCLUSIONS AND RECOMMENDATIONS 1. Minimal atherosclerosis with big diameter vessels. 2. Normal left ventricular systolic function. 3. Recommend evaluation for nonischemic chest pain. Read by ROSARIO MITCHELL MD 10/16/2013 08:59 A Repeat troponin is normal. Patient is feeling better at this time, we will continue his Lasix 20 mg a day for the next week. I discussed all ED results and my clinical impression with the patient. Patient is ready f or discharge. I advised patient as to the time frame for follow up, and we discussed the jack rgent signs and symptoms that would necessitate a return to ED. All questions and concerns a ddressed. Delay in charting due to epic downtime. Records Reviewed Old medical records. Nursing notes. (Using the electronic record system of [facility]) Laboratory Evaluation Results Procedure Component Value Ref Range Date/Time POC cardiac troponin [[id number]] Collected: 04/09/144 Order Status: Completed Updated: 04/09/14413 POC CARDIAC TROPONIN 0.00 0.00 - 0.10 ng/mL Brain natriuretic peptide [[id number]] Collected: 04/09/14104 Order Status: Completed Updated: 04/09/14412 BRAIN NATRIURETIC PEPTIDE 16.3 0 - 100 pg/mL Cardiac Panel [[id number]] (Abnormal) Collected: 04/09/14104 Order Status: Completed Updated: 04/09/14411 WBC 9.94 3.80 - 11.00 K/uL RBC 4.92 4.20 - 5.70 M/uL HGB 12.5 (L) 13.2 - 17.0 g/dL HCT 38.4 (L) 39.0 - 50.0 % MCV 78.0 (L) 80.0 - 100.0 fl MCH 25.4 (L) 27.0 - 34.0 pg MCHC 32.5 32.0 - 35.5 g/dL RDW SD 42.9 37 - 53 fl PLT 272 150 - 400 K/uL MPV 7.8 fl DIFF TYPE AUTOMATED NEUTROPHILS 58.63 % LYMPHOCYTES 26.76 % MONOCYTES 9.59 % EOSINOPHILS 4.58 % BASOPHILS 0.44 % NEUTROPHILS ABS 5.83 1.90 - 7.40 K/uL LYMPHOCYTES ABS 2.66 1.00 - 3.90 K/uL MONOCYTES ABS 0.95 (H) 0.00 - 0.80 K/uL EOSINOPHILS ABS 0.46 0.00 - 0.50 K/uL BASOPHILS ABS 0.04 0.00 - 0.10 K/uL SODIUM 142 135 - 143 mmol/L POTASSIUM 3.8 3.5 - 4.9 mmol/L CHLORIDE 106 99 - 109 mmol/L CO2 29 23 - 32 mmol/L ANION GAP AGAP 11 5 - 20 mmol/L GLUCOSE 157 (H) 65 - 99 mg/dL BUN 21 8 - 25 mg/dL CREATININE 1.21 0.70 - 1.30 mg/dL BUN/CREAT 17 CALCIUM 8.5 8.5 - 10.5 mg/dL TOTAL PROTEIN 7.5 6.3 - 8.2 g/dL Albumin 3.3 (L) 3.6 - 5.0 g/dL GLOBULIN 4.2 1.3 - 4.9 g/dL A/G 0.8 (L) 1.0 - 2.4 TBIL 0.3 0.1 - 1.5 mg/dL ALK PHOS 88 35 - 115 U/L AST 17 10 - 45 U/L ALT 20 10 - 65 U/L EGFR >60 >60 mL/min/1.73m2 CPK 134 55 - 400 U/L INR 1.0 APTT 25 23 - 32 seconds MMB 3.8 (H) 0.5 - 3.6 ng/mL CK-MB Index 2.8 POC cardiac troponin [[id number]] Collected: 04/09/14 0018 Order Status: Completed Updated: 04/09/14 0036 POC CARDIAC TROPONIN 0.00 0.00 - 0.10 ng/mL I personally reviewed the lab results and they have been posted to the chart at the time of the patients disposition. Radiology and EKG Evaluation EKG today done at 12 midnight, rate 77, sinus rhythm with premature atrial complexes, nonsp ecific ST abnormalities, the machine is reading QT prolongation, however with inspection the QT interval is less than one half of the RR interval hence I disagree with the automated in terpretation. EKG interpreted by myself the time of clinical encounter. Imaging Results XR Chest PA and Lateral (Final result) Result time: 04/09/14 07:01:17 Final result by Rad Results In Richard (04/09/14 07:01:17) Impression: 1. No acute cardiopulmonary process. Narrative: NORAH GR 1955 58 years Male XR CHEST 2 VIEW FRONTAL AND LATERAL 04/09/2014 6:13 AM INDICATION: Chest pain COMPARISON: 03/01/14 TECHNIQUE: Two view chest, PA and lateral views FINDINGS: The cardiomediastinal contours are normal. There is no mediastinal widening or s hift. No pneumothorax or effusion. The lungs are clear with no focal consolidation or pulm onary nodules. 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 ED Diagnoses Final diagnoses Chest pain Pedal edema Disposition: ED Disposition Disposition not entered Stable Follow-up Information Follow up With Details Comments Contact [facility] Emergency Department If symptoms worsen [address] [facility] [address] Jerrell Ginny Westhusing, DO In 3 days [address] [facility] [address] Jerrell Ginny Westhusing, DO In 1 day [address] [facility] [address] [facility] Emergency Department [address] [facility] [address] [facility] Emergency Department If symptoms worsen [address] [facility] [address] Discharge Medications: Discharge Medication List as of 04/09/2014 12:57 AM START taking these medications Details furosemide (LASIX) 20 MG tablet Take 1 tablet by mouth daily., Starting 04/09/2014, Until Joselyn 04/09/15, Print This document has been prepared with a voice recognition system. The possibility of "sound alike" core worker errors, and additions or deletions may occur. If there is any questio n, with respect to clarity of the message being conveyed, please contact me directly for cla rification. Marcos Nugent MD, MPH Procedures Additional Documentation Procedures Attending Note: Documentation assistance provided by Irving Myers (Scribe). Information recorded by the scribe has been reviewed and validated by me. I aruna laughlin with its contents. Marcos Nugent MD 04/10/14 0909 onversion Transac tion, Provider Unknown - 04/08/2014 11:57 PM PSTFormatting of this note might be different f rom the original. ED Notes by Ashley Delgado RN at 04/08/14 3216 Author: Ashley Delgado RN Service: (none) Author Type: Registered Nurse Filed: 04/08/142356 Date of Service: 04/08/142356 Status: Signed Soft Sugar Supervisor: Ashley Delgado RN (Registered Nurse) Bed: 10 Expected date: Expected time: Means of arrival: Comments: onver ivana Transaction, Provider Unknown - 04/08/2014 11:56 PM PST ED Notes by Ashley Delgado RN at 04/08/142355 Author: Ashley Delgado RN Service: (none) Author Type: Registered Nurse Filed: 04/08/142355 Date of Service: 04/08/142355 Status: Signed Soft Sugar Supervisor: Ashley Delgado RN (Registered Nurse) Bed: 04 Expected date: [...] | | | | | | [place] [address] | | | | | | [phone] | | | | | | | | +--------+ + + + + documented as of this encounter Procedures + +--------+ + + + | Procedure Name | Priori | Date/Time | Associated Diagnosis | Comments | | | ty | | | | + +--------+ + + + | XR CHEST 2 VIEWS | Routin | 04/09/2014 | | Results for this | | | e | 6:13 AM | | procedure are in the | | | | PST | | results section. | + +--------+ + + + | HISTORICAL LAB PANEL | Routin | 04/09/2014 | | Results for this | | RESULT | e | 1:05 AM | | procedure are in the | | | | PST | | results section. | + +--------+ + + + | B TYPE NATRIURETIC | Routin | 04/09/2014 | | Results for this | | PEPTIDE | e | 1:05 AM | | procedure are in the | | | | PST | | results section. | + +--------+ + + + | ECG 12 LEAD | Routin | 04/09/2014 | | Results for this | | | e | 12:00 AM | | procedure are in the | | | | PST | | results section. | + +--------+ + + + documented in this encounter Results XR Chest 2 Vws (04/09/2014 6:13 AM PST) + + | Specimen | [...] VIEW FRONTAL | | | AND LATERAL 04/09/2014 6:13 AM INDICATION: Chest pain | | | COMPARISON: 03/01/14 TECHNIQUE: Two view chest, PA and lateral | | | views FINDINGS: The cardiomediastinal contours are normal. There | | | is no mediastinal widening or shift. No pneumothorax or effusion. | | | The lungs are clear with no focal consolidation or pulmonary | | | nodules. Mild degenerative disc disease of the thoracic spine is | | | present. | | + + + + + | Procedure Note | + + | Richard, Rad Conversion - 09/20/2018 10:29 PM PDT NORAH GR89 years MaleXR | | CHEST 2 VIEW FRONTAL AND LATERAL04/09/2014 6:13 AM INDICATION: Chest pain COMPARISON: | | 03/01/14 TECHNIQUE: Two view chest, PA and lateral views FINDINGS: The cardiomediastinal | | contours are normal. There is no mediastinal widening or shift. No pneumothorax or | | effusion. The lungs are clear with no focal consolidation or pulmonary nodules. Mild | | degenerative disc disease of the thoracic spine is present. IMPRESSION: 1. No acute | | cardiopulmonary process. | | AM | |COMPARISON: 03/01/14 | | | |TECHNIQUE: Two view chest, [...] | + + HISTORICAL LAB PANEL RESULT (04/09/2014 1:05 AM PST) + + + + + -+ | Component | Value | Ref Range | Performed | Pathologist | | | | | At | Signature | + + + + + -+ | WBC | 9.94Comment: Testing | 3.80 - 11.00 | EXTERNAL | | | | performed at [facility] | K/uL | LAB | | | | [address];[place] | | | | | | [address] | | | | + + + + + -+ | Non- | 4.92Comment: Testing | 4.20 - 5.70 | EXTERNAL | | | Red Blood | performed at [facility] | M/uL | LAB | | | Cells | [address];[place] | | | | | Counted | [address] | | | | + + + + + -+ | Hemoglobin | 12.5 (L)Comment: Testing | 13.2 - 17.0 | EXTERNAL | | | | performed at [facility];[address] | g/dL | LAB | | | | [address];[place] | | | | | | [address] | | | | + + + + + -+ | Hematocrit, | 38.4 (L)Comment: Testing | 39.0 - 50.0 % | EXTERNAL | | | POC | performed at [facility];[address] | | LAB | | | | [address];[place] | | | | | | [address] | | | | + + + + + -+ | MCV | 78.0 (L)Comment: Testing | 80.0 - 100.0 fl | EXTERNAL | | | | performed at [facility];[address] | | LAB | | | | [address];[place] | | | | | | [address] | | | | + + + + + -+ | MCH | 25.4 (L)Comment: Testing | 27.0 - 34.0 pg | EXTERNAL | | | | performed at [facility];[address] | | LAB | | | | [address];[place] | | | | | | [address] | | | | + + + + + -+ | MCHC | 32.5Comment: Testing | 32.0 - 35.5 | EXTERNAL | | | | performed at [facility];[address] | g/dL | LAB | | | | [address];[place] | | | | | | [address] | | | | + + + + + -+ | RDW-CV | 42.9Comment: Testing | 37 - 53 fl | EXTERNAL | | | | performed at [facility];[address] | | LAB | | | | [address];[place] | | | | | | [address] | | | | + + + + + -+ | Platelet | 272Comment: Testing | 150 - 400 K/uL | EXTERNAL | | | Count | performed at [facility];[address] | | LAB | | | Plasma | [address];[place] | | | | | | [address] | | | | + + + + + -+ | MPV | 7.8Comment: Testing | fl | EXTERNAL | | | | performed at [facility];[address] | | LAB | | | | [address];[place] | | | | | | [address] | | | | + + + + + -+ | Differentia | AUTOMATEDComment: | | EXTERNAL | | | l Type | Testing performed at | | LAB | | | | [facility];[address];[place] [address] | | | | + + + + + -+ | % Segmented | 58.63Comment: Testing | % | EXTERNAL | | | | performed at [facility];[address] | | LAB | | | Neutrophils | [address];[place] | | | | | | [address] | | | | + + + + + -+ | % | 26.76Comment: Testing | % | EXTERNAL | | | Lymphocytes | performed at [facility];[address] | | LAB | | | | [address];[place] | | | | | | [address] | | | | + + + + + -+ | % Monocytes | 9.59Comment: Testing | % | EXTERNAL | | | | performed at [facility];[address] | | LAB | | | | [address];[place] | | | | | | [address] | | | | + + + + + -+ | % | 4.58Comment: Testing | % | EXTERNAL | | | Eosinophils | performed at [facility];[address] | | LAB | | | | [address];[place] | | | | | | [address] | | | | + + + + + -+ | % Basophils | 0.44Comment: Testing | % | EXTERNAL | | | | performed at [facility];[address] | | LAB | | | | [address];[place] | | | | | | [address] | | | | + + + + + -+ | Absolute | 5.83Comment: Testing | 1.90 - 7.40 | EXTERNAL | | | Segmented | performed at [facility];[address] | K/uL | LAB | | | Neutrophils | [address];[place] | | | | | | [address] | | | | + + + + + -+ | Absolute | 2.66Comment: Testing | 1.00 - 3.90 | EXTERNAL | | | Lymphocytes | performed at [facility];[address] | K/uL | LAB | | | | [address];[place] | | | | | | [address] | | | | + + + + + -+ | Absolute | 0.95 (H)Comment: Testing | 0.00 - 0.80 | EXTERNAL | | | Monocytes | performed at [facility];[address] | K/uL | LAB | | | | [address];[place] | | | | | | [address] | | | | + + + + + -+ | Absolute | 0.46Comment: Testing | 0.00 - 0.50 | EXTERNAL | | | Eosinophils | performed at [facility];[address] | K/uL | LAB | | | | [address];[place] | | | | | | [address] | | | | + + + + + -+ | Absolute | 0.04Comment: Testing | 0.00 - 0.10 | EXTERNAL | | | Basophils | performed at [facility];[address] | K/uL | LAB | | | | [address];[place] | | | | | | [address] | | | | + + + + + -+ | Na | 142Comment: Testing | 135 - 143 | EXTERNAL | | | | performed at [facility];[address] | mmol/L | LAB | | | | [address];[place] | | | | | | [address] | | | | + + + + + -+ | K | 3.8Comment: Testing | 3.5 - 4.9 | EXTERNAL | | | | performed at [facility];[address] | mmol/L | LAB | | | | [address];[place] | | | | | | [address] | | | | + + + + + -+ | Cl | 106Comment: Testing | 99 - 109 mmol/L | EXTERNAL | | | | performed at [facility];[address] | | LAB | | | | [address];[place] | | | | | | [address] | | | | + + + + + -+ | CO2 | 29Comment: Testing | 23 - 32 mmol/L | EXTERNAL | | | | performed at [facility];[address] | | LAB | | | | [address];[place] | | | | | | [address] | | | | + + + + + -+ | Anion Gap | 11Comment: Testing | 5 - 20 mmol/L | EXTERNAL | | | | performed at [facility];[address] | | LAB | | | | [address];[place] | | | | | | [address] | | | | + + + + + -+ | Glucose, | 157 (H)Comment: Testing | 65 - 99 mg/dL | EXTERNAL | | | Fasting | performed at [facility];[address] | | LAB | | | | [address];[place] | | | | | | [address] | | | | + + + + + -+ | BUN | 21Comment: Testing | 8 - 25 mg/dL | EXTERNAL | | | | performed at [facility];[address] | | LAB | | | | [address];[place] | | | | | | [address] | | | | + + + + + -+ | Creatinine | 1.21Comment: Testing | 0.70 - 1.30 | EXTERNAL | | | | performed at [facility];[address] | mg/dL | LAB | | | | [address];[place] | | | | | | [address] | | | | + + + + + -+ | BUN/Creatin | 17Comment: Testing | | EXTERNAL | | | ine Ratio | performed at [facility];[address] | | LAB | | | | [address];[place] | | | | | | [address] | | | | + + + + + -+ | Calcium | 8.5Comment: Testing | 8.5 - 10.5 | EXTERNAL | | | | performed at [facility];[address] | mg/dL | LAB | | | | [address];[place] | | | | | | [address] | | | | + + + + + -+ | Protein, | 7.5Comment: Testing | 6.3 - 8.2 g/dL | EXTERNAL | | | Total | performed at [facility];[address] | | LAB | | | | [address];[place] | | | | | | [address] | | | | + + + + + -+ | Albumin | 3.3 (L)Comment: Testing | 3.6 - 5.0 g/dL | EXTERNAL | | | | performed at [facility];[address] | | LAB | | | | [address];[place] | | | | | | [address] | | | | + + + + + -+ | Globulin | 4.2Comment: Testing | 1.3 - 4.9 g/dL | EXTERNAL | | | | performed at [facility];[address] | | LAB | | | | [address];[place] | | | | | | [address] | | | | + + + + + -+ | A/G Ratio | 0.8 (L)Comment: Testing | 1.0 - 2.4 | EXTERNAL | | | | performed at [facility];[address] | | LAB | | | | [address];[place] | | | | | | [address] | | | | + + + + + -+ | Bilirubin | 0.3Comment: Testing | 0.1 - 1.5 mg/dL | EXTERNAL | | | Total | performed at [facility];[address] | | LAB | | | | [address];[place] | | | | | | [address] | | | | + + + + + -+ | ALP, | 88Comment: Testing | 35 - 115 U/L | EXTERNAL | | | External | performed at [facility];[address] | | LAB | | | | [address];[place] | | | | | | [address] | | | | + + + + + -+ | AST | 17Comment: Testing | 10 - 45 U/L | EXTERNAL | | | | performed at [facility];[address] | | LAB | | | | [address];[place] | | | | | | [address] | | | | + + + + + -+ | ALT | 20Comment: Testing | 10 - 65 U/L | EXTERNAL | | | | performed at [facility];[address] | | LAB | | | | [facility] | | | | | | [address] | | | | + + + [...] | | | | | | at [facility];[address];[place] [address] | | | | + + + + + -+ | CK, Total | 134Comment: Testing | 55 - 400 U/L | EXTERNAL | | | | performed at [facility];[address] | | LAB | | | | [address];[place] | | | | | | [address] | | | | + + + [...] performed at [facility];[address] | [address] | | | | [address];[place] | | | | | | [address] | | | | + + + + + -+ | aPTT, | 25Comment: Testing | 23 - 32 seconds | EXTERNAL | | | Patient | performed at [facility];[address] | | LAB | | | | [address];[place] | | | | | | [address] | | | | + + + + + -+ | CK-MB | 3.8 (H)Comment: Testing | 0.5 - 3.6 ng/mL | EXTERNAL | | | | performed at [facility];[address] | | LAB | | | | [address];[place], [place] | | | | | | [address] | | | | + + + [...] +---------+ + + B Type Natriuretic Peptide (04/09/2014 1:05 AM PST) + + + + + + | Component | Value | Ref Range | Performed | Pathologist | | | | | At | Signature | + + + + + + | BNP | 16.3Comment: Testing | 0 - 100 pg/mL | EXTERNAL | | | | performed at [facility] | | LAB | | | | [address];[place] | | | | | | [address] | | | | + + + + + + + + | Specimen | + + | | + + + +---------+ + + | Performing | Address | City/State/Zipcode | Phone Number | | Organization | | | | + +---------+ + + | EXTERNAL LAB | | | | + +---------+ + + ECG 12 lead (04/09/2014 12:00 AM PST) + + + + + + | Component | Value | Ref Range | Performed | Pathologist | | | | | At | Signature | + + + + + + | DIAGNOSIS: | Sinus rhythm with | | EXTERNAL | | | | Premature atrial | | LAB | | | | complexesProlonged | | | | | | QTAbnormal ECGWhen | | | | | | compared with ECG of | | | | | | 04-FEB-2014 18:17,No | | | | | | significant [...] (500), | | | | | | rewrite editor Keyla Gregory | | | | | | (25) on 04/09/2014 2:31:38 | | | | | | AM | | | | + + + + + + + + | Specimen | + + | | + + + + + | Narrative | Performed At | + + + | Historically converted procedure from [facility] | EXTERNAL LAB | + + + [...] Chest pain, unspecified | + + | Pedal edema Edema | + + documented in this encounter
--- OUTSIDE RECORDS SUMMARY | ~2019-10-12 | XMS | Encounter Summary ---
Demographics + + + | Address | [address] | | | [place] [address] | + + + | Home Phone [...] + | Sammi Kohler | ECON | [place] [address] | | + + + + + Care Team Providers + +------+ + | Care Business Rules Analyst Name | Role | Phone | + +------+ + PCP | Unavailable | + +------+ + Encounter Details +--------+ + + + + | Date | Type | Department | Care Team | Description | +--------+ + + + + | 01/13/ | Emergency | [facility] | Reynaldo Prather | Fall from bed, | | 2013 | | [facility] | [address] | initial encounter; | | | | [facility] | [address] | Lumbosacral strain, | | | | [address] | [place], [place] | initial encounter | | | | [place], [place] | [address] | | | | | [address] | [phone] | | | | | [phone] | | | +--------+ + + + [...] 01/13/14717 Date of Service: 01/13/14717 Status: Signed Cue Worker: Roxana Walters RN (Registered Nurse) [facility] called for transport Roxana Walters RN 01/13/14717 Reynaldo Landin DO - 01/13/2014 6:36 AM PSTFormatting of this note might be different f rom the original. ED Provider Notes by Reynaldo Prather DO at 01/13/14635 Author: Reynaldo Prather DO Service: (none) Author Type: Physician Filed: 01/13/14723 Date of Service: 01/13/14635 Status: Signed Cue Worker: Reynaldo Prather DO (Physician) [facility] Department of Emergency Medicine 6:36 AM History of Present Illness Patient Identification Kevyn Guzman is a 58 y.o. male. Patient information was obtained from patient. History/Exam limitations: none. Patient presented to the Emergency Department by: [facility] Chief Complaint Chief Complaint Patient [...] - CHOLECYSTECTOMY; Surgeon: Jevon Vargas DO; Location: [facility]; Service: General; Laterality: N/A; Abdominal surgery Cholecystectomy Skin cancer excision 10/10/2012 Procedure: EXCISION - SKIN CANCER; Surgeon: Sy Fierro MD; Location: [facility] ; Service: Plastics; Laterality: Left; upper arm and upper back w/frozen section Esophagogastroduodenoscopy 03/03/2013 Procedure: ESOPHAGOGASTRODUODENOSCOPY; Surgeon: Howie Gibson MD; Location: [facility]COPY; S ervice: Gastroenterology; Laterality: N/A; Colonoscopy 03/04/2013 Procedure: COLONOSCOPY; Surgeon: Howie Gibson MD; Location: [facility]COPY; Service: Gastroe nterology; Laterality: N/A; Upper gastrointestinal endoscopy Skin biopsy Hernia repair 07/03/2013 Procedure: LAPAROSCOPIC - HERNIA - INCISIONAL; Surgeon: Jevon Vargas DO; Location: [facility]; Service: General; Laterality: N/A; Prior [...] the lungs daily. Yes Hi storical Provider Xcbuw-N-Qwbwgogaztjks (BEANO) TABS Take 150 Units by mouth 3 (three) times daily as needed (As needed for gas). Historical Provider antipyrine-benzocaine (AURALGAN) otic solution Place 4 drops into both ears daily. Histo rical Provider calcium carbonate (TUMS) 500 MG chewable tablet Take 500-1,000 mg by mouth daily as needed. For GERD Historical Provider lxbgaeoov-wblcukxr-ucojgfmtk hydroxide-simethicone Take 40 mLs by mouth daily [...] sore throat CV/Resp: Negative for chest pain, cucvbuwpq-dn-svtabj, cough GI: Negative for abdominal pain, nausea, [...] ral Given Roxana Walters RN Filed Vitals: 01/13/14 0601/13/14 07 BP: 168/79 167/86 Pulse: 66 76 Temp: [...] Details Comments Contact Info Jerrell Gutiérrez, In [address] [facility] [id number] [facility] Emergency Department If symptoms worsen [address] [facility] [address] Discharge Medications: New Prescriptions No new medications [...] 01/13/14604 Date of Service: 01/13/14604 Status: Signed Cue Worker: Onel Kenney RN (Registered Nurse) Bed: 07 [...] | | | | | | [address] [facility], | | | | | | [place] [address] | | | | | | [phone] | | | | | | | | +--------+ + + + + documented as of this encounter Visit Diagnoses + + | Diagnosis | + + | Fall from bed, initial encounter | + + | Lumbosacral strain, initial encounter | + + documented in this encounter
--- OUTSIDE RECORDS SUMMARY | ~2019-10-12 | XMS | Encounter Summary ---
Demographics + + + | Address | [address] | | | [place] [address] | + + + | Home Phone [...] + | Sammi Kohler | ECON | [place] [address] | | + + + + + Care Team Providers + +------+ + | Care Sewing Machine Operator Plastic Zipper Name | Role | Phone | + +------+ + PCP | Unavailable | + +------+ + Encounter Details +--------+ + + + + | Date | Type | Department | Care Team | Description | +--------+ + + + + | 12/02/ | Hospital | [facility] | Surendra, Trent | Dizziness; Hypoxia; | | 2013 - | Encounter | [facility] | Niles Márquez MD [address] | Somnolence; Diabetes | | | | CLINICAL DECISION | [address] | mellitus, type 2 | | 12/03/ | | [address] | [place] [address] | ([facility]); Fall at home, | | 2013 | | [place], [place] | [phone] | subsequent | | | | [address] | | encounter | | | | [phone] | | | +--------+ + + + [...] documented as of this encounter Discharge Summaries Trent Mukherjee MD - 12/03/2013 12:57 PM PDTFormatting of this note might be differe nt from the original. Discharge Summaries by Trent Mukherjee MD at 12/03/13 1257 Author: Trent Mukherjee MD Service: Hospitalist Author Type: Physician Filed: 12/05/13 1749 Date of Service: 12/03/13 1257 Status: Signed Sleeve Machine Tender: Trent Mukherjee MD (Physician) Merged With [facility] Service: Hospitalist Discharge Summary Date of Admission: 12/02/2013 Date of Discharge: 12/03/2013, 2 PM Discharge Provider: TRENT MUKHERJEE MD Treatment Team: Consulting Physician: Trent Mukherjee MD Admitting Provider: Trent Mukherjee MD Discharge Diagnoses: Principal Problem (Resolved): Dizziness and giddiness Active Problems: Diabetes mellitus, type 2 HTN (hypertension) COPD (chronic obstructive pulmonary disease) Paroxysmal atrial fibrillation Hyperlipidemia Obesity, Class I, BMI 30-34.9 Final Diagnoses: Dizziness, HTN, DM Type 2. Procedures: * No surgery found * Significant Diagnostic Studies: CBC, CMP, Carotid Dopplers BRIEF HISTORY OF PRESENTATION: (As per Admitting HPI) Norah Gr is a 57 y.o. male with significant past medical history of HTN, DM Type 2, Pa roxysmal Atrial Fibrillation, COPD and WARD who presented to the ER with complaints of dizzin ess. According to the patient, he has been having dizziness for the past few days and have c ome to the ER with similar symptoms. This time he felt light headed, dizzy at home and also fell hitting the TV tray. There was no external injury or lacerations he denied any loss of consciousness. This was associated with neck pain and urinary discomfort. Due to persistent symptom he decided to come to the hospital for evaluation. At the ER, patient was hemodynamically stable. His initial laboratory results showed mild l eukocytosis of 11. 3 while CMP was stable with exception of elevated blood sugars of 338. A CT scan of the head was done which was negative for acute Stroke or Hemorrhages. He was the admitted for further evaluation. HOSPITAL COURSE: Patient was admitted to CDU due to persistent dizziness symptoms. He was closely monitored and found to be hemodynamically stable. A CT scan of the head was done which was negative fo r acute intracranial hemorrhage, mass or infarct. His subsequent labs like CBC, CMP, serial cardiac enzymes and troponin's were all stable. Carotid dopplers were done which was also ne gative for significant stenosis. His Clonidine patch was removed and discontinued as that wa s possibly the contributing factor to his symptoms. The Amlodipine was increased to 10 mg da evelia for adequate BP control and Lantus insulin was increased to 82 units at bedtime for bett er blood sugars control. Patient agreed to these changes and was feeling better the followin g day with less dizziness and related symptoms. Since he was hemodynamically stable, case management worked on his discharge back to [facility] facility. He was discharged stable with recommendations to follow up with his PCP marcin gant in one week. Past Medical History Diagnosis [...] - CHOLECYSTECTOMY; Surgeon: Jevon Vargas DO; Location: [facility] OR; Service: General; Laterality: N/A; Abdominal surgery Cholecystectomy Skin cancer excision 10/10/2012 Procedure: EXCISION - SKIN CANCER; Surgeon: Sy Fierro MD; Location: [facility] OR ; Service: Plastics; Laterality: Left; upper arm and upper back w/frozen section Esophagogastroduodenoscopy 03/03/2013 Procedure: ESOPHAGOGASTRODUODENOSCOPY; Surgeon: Howie Gibson MD; Location: [facility] ENDOSCOPY; S ervice: Gastroenterology; Laterality: N/A; Colonoscopy 03/04/2013 Procedure: COLONOSCOPY; Surgeon: Howie Gibson MD; Location: [facility] ENDOSCOPY; Service: Gastroe nterology; Laterality: N/A; Upper gastrointestinal endoscopy Skin biopsy Hernia repair 07/03/2013 Procedure: LAPAROSCOPIC - HERNIA - INCISIONAL; Surgeon: Jevon Vargas DO; Location: [facility] OR; Service: General; Laterality: N/A; Allergies Allergen Reactions Vitamin B12 Rash DISCHARGE EXAM Vital Signs: BP 180/87 | Pulse 82 | Temp(Src) 98.6 F (37 C) (Oral) | Resp 18 | Ht 1.803 m (5' 10.98" ) | Wt 106.595 kg (235 lb) | BMI 32.79 kg/m2 | SpO2 95% Physical Exam Constitutional: He is oriented to person, place, and time. He appears well-developed. HENT: Head: Normocephalic and atraumatic. Right Ear: External ear normal. Left Ear: External ear normal. Nose: Nose normal. Eyes: Conjunctivae and EOM are normal. Pupils are equal, round, and reactive to light. Left eye exhibits no discharge. Neck: Normal range of motion. Neck supple. No JVD present. No tracheal deviation present. N o thyromegaly present. Cardiovascular: Normal rate and normal heart sounds. No murmur heard. Pulmonary/Chest: Effort normal and breath sounds normal. No stridor. No respiratory distres s. He has no wheezes. He has no rales. Abdominal: Soft. Bowel sounds are normal. He exhibits no distension and no mass. There is n o tenderness. There is no guarding. Obese, soft and non tender to palpation. Musculoskeletal: Normal range of motion. He exhibits no edema or tenderness. Lymphadenopathy: He has no cervical adenopathy. Neurological: He is alert and oriented to person, place, and time. He has normal reflexes. No cranial nerve deficit. He exhibits normal muscle tone. Coordination normal. Skin: Skin is warm and dry. He is not diaphoretic. No erythema. No pallor. Psychiatric: He has a normal mood and affect. His behavior is normal. Thought content janine l. Vitals reviewed. DATA Recent Results (from the past 24 hour(s)) POCT GLUCOSE Collection Time 12/02/13 4:25 PM Result Value Range GLUCOSE,POC SCREEN 195 (*) 65 - 99 mg/dL POCT GLUCOSE Collection Time 12/02/13 5:52 PM Result Value Range GLUCOSE,POC SCREEN 269 (*) 65 - 99 mg/dL POCT GLUCOSE Collection Time 12/02/13 9:04 PM Result Value Range GLUCOSE,POC SCREEN 215 (*) 65 - 99 mg/dL BASIC METABOLIC PANEL Collection Time 12/03/13 4:55 AM Result Value Range SODIUM 140 135 - 143 mmol/L POTASSIUM 3.5 3.5 - 4.9 mmol/L CHLORIDE 103 99 - 109 mmol/L CO2 32 23 - 32 mmol/L ANION GAP AGAP 9 5 - 20 mmol/L GLUCOSE 159 (*) 65 - 99 mg/dL BUN 16 8 - 25 mg/dL CREATININE 1.01 0.70 - 1.30 mg/dL BUN/CREAT 16 CALCIUM 9.0 8.5 - 10.2 mg/dL EGFR >60 >60 mL/min/1.73m2 CBC W/AUTO DIFF (REFLEX TO MANUAL) Collection Time 12/03/13 4:55 AM Result Value Range WBC 10.7 3.8 - 11.0 K/uL RBC 4.97 4.20 - 5.70 M/uL HGB 13.2 13.2 - 17.0 g/dL HCT 40.7 39.0 - 50.0 % MCV 82.0 80.0 - 100.0 fl MCH 26.7 (*) 27.0 - 34.0 pg MCHC 32.5 32.0 - 35.5 g/dL RDW SD 40.7 37 - 53 fl PLT 255 150 - 400 K/uL MPV 7.7 DIFF TYPE AUTOMATED NEUTROPHILS 52.6 LYMPHOCYTES 34.5 MONOCYTES 8.0 EOSINOPHILS 4.3 BASOPHILS 0.6 NEUTROPHILS ABS 5.7 1.9 - 7.4 K/uL LYMPHOCYTES ABS 3.7 1.0 - 3.9 K/uL MONOCYTES ABS 0.9 (*) 0 - 0.8 K/uL EOSINOPHILS ABS 0.5 0 - 0.5 K/uL BASOPHILS ABS 0.1 0 - 0.1 K/uL GLYCOHEMOGLOBIN A1C Collection Time 12/03/13 4:55 AM Result Value Range HEMOGLOBIN A1C 7.4 (*) 4.0 - 6.0 % ESTIMATED AVG GLUCOSE 166 LIPID PANEL Collection Time 12/03/13 4:55 AM Result Value Range CHOLESTEROL 132 <200 mg/dL Triglycerides 236 (*) <150 mg/dL HDL CHOL 25 (*) >40 mg/dL LDL CALC 60 <100 mg/dL MAGNESIUM Collection Time 12/03/13 4:55 AM Result Value Range MAGNESIUM 1.7 1.7 - 2.4 mg/dL PHOSPHOROUS Collection Time 12/03/13 4:55 AM Result Value Range PHOSPHORUS 3.2 2.3 - 4.8 mg/dL TSH Collection Time 12/03/13 4:55 AM Result Value Range TSH 0.98 0.45 - 5.10 uIU/mL POCT GLUCOSE Collection Time 12/03/13 5:41 AM Result Value Range GLUCOSE,POC SCREEN 164 (*) 65 - 99 mg/dL POCT GLUCOSE Collection Time 12/03/13 11:11 AM Result Value Range GLUCOSE,POC SCREEN 260 (*) 65 - 99 mg/dL CT HEAD IMPRESSION: 1. No acute intracranial hemorrhage, mass or infarct. Follow up with your primary care physician in one week for a routine evaluation. Follow up with Dr. Cortez from Pulmonary services for sleep apnea and to resume CPAP use at [facility]. Low salt and diabetic diet for better blood sugar and blood pressure control. Take the current list of medications as prescribed including the newer medications as presc ribed. Do not use the Clonidine patch anymore. Disposition: Home Condition: Stable Code Status: Full Code Discharge Instructions Diet Diabetic Up with Assistance Follow up: Edin Gutiérrez DO Schedule an appointment as soon as possible for a visit in 1 week Bao Cortez MD [id number] [phone] In 1 week Preferbaly in one to two days for follow up on sleep apnea and CPAP machine. Medication List CHANGE how you take these medications amLODIPine 10 MG tablet QTY: 30 tablet Refills: 1 Commonly known as: NORVASC Take 1 tablet by mouth daily. What changed: See the new instructions. insulin glargine 100 UNIT/ML injection QTY: 10 mL Refills: 12 Commonly known as: LANTUS Inject 82 Units into the skin nightly. What changed: how much to take CONTINUE taking these medications antipyrine-benzocaine otic solution Refills: 0 Commonly known as: AURALGAN ARIPiprazole 15 MG tablet Refills: 0 Commonly known as: ABILIFY aspirin 81 MG chewable tablet QTY: 30 tablet Refills: 0 Take 1 tablet by mouth daily with breakfast. BEANO Tabs Refills: 0 calcium carbonate 500 MG chewable tablet Refills: 0 Commonly known as: TUMS clonazePAM 1 MG tablet Refills: 0 Commonly known as: KlonoPIN diltiazem 240 MG 24 hr capsule QTY: 15 capsule Refills: 0 Commonly known as: CARDIZEM CD Take 1 capsule by mouth daily. docusate sodium 100 MG capsule Refills: 0 Commonly known as: COLACE DULERA 100-5 MCG/ACT inhaler Refills: 0 Generic drug: mometasone-formoterol fenofibrate 160 MG tablet Refills: 0 Commonly known as: TRICOR gabapentin 100 MG capsule Refills: 0 Commonly known as: NEURONTIN lamoTRIgine 100 MG tablet Refills: 0 Commonly known as: LaMICtal LATUDA 20 MG tablet Refills: 0 Generic drug: lurasidone vrfviovzw-oqttlrzp-xylvnkhij hydroxide-simethicone Refills: 0 lisinopril 40 MG tablet Refills: 0 Commonly known as: ZESTRIL loperamide 2 MG capsule Refills: 0 Commonly known as: IMODIUM meclizine 25 MG tablet QTY: 20 tablet Refills: 0 Commonly known as: ANTIVERT Take 1 tablet by mouth 3 (three) times daily as needed (vertigo). nitroGLYCERIN 0.4 MG SL tablet Refills: 0 [...] IN Refills: 0 STOP taking these medications cloNIDine 0.2 MG tablet Commonly known as: CATAPRES LORazepam 1 MG tablet Commonly known as: ATIVAN Where to Get Your Medications You need to cloth picker these prescriptions. We sent them to a specific pharmacy, so go there to get them. [facility] [place], [place] - [address] [place] [address] - amLODIPine 10 MG tablet - insulin glargine 100 UNIT/ML injection [address] [place] [id number] Discharge took more 35 minutes, to include final examination, discussion of admission, and preparation of prescriptions, instructions for on-going care, follow-up and documentation of discharge summary. TRENT MUKHERJEE MD 12/03/2013 documented in this encounter Medications at Time [...] Progress Notes Conversion Transaction, Provider Unknown - 12/03/2013 1:55 PM PDTFormatting of this note m ight be different from the original. Therapy Progress Note by Ana Snyder PT at 12/03/13 1930 Author: Ana Snyder PT Service: (none) Author Type: Physical Therapist Filed: 12/03/13 8037 Date of Service: 12/03/13 9269 Status: Signed Sleeve Machine Tender: Ana Snyder PT (Physical Therapist) 12/03/13 2101 PT Last Visit PT Received On 12/03/13 Reason for Treatment Other (comment) (dizziness) Requires PT Follow Up No Follow up PT Only? No PT Eval/Reassessment Date 12/03/13 Assistance Required 1 person Precautions Other Precautions fall precautions Plan Treatment/Interventions Discharge skilled PT services Home Environment Type of Home Assisted living Bathroom Shower/Tub Tub/shower unit Bathroom Toilet Standard Bathroom Equipment Grab bars in shower/bath;Grab bars at toilet;Tub transfer bench;Hand-hel d shower head Bathroom Accessibility Accessible via walker Home Equipment Walker front wheeled Additional Comments Lives alone in [facility]. 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 Denies falls except just BUSINESS UNIT DIRECTOR, notes dizziness upon standing then went to BR got more lightheadedness, tried to make it to bed but fell and hit head on tv tray. Notes able to ac cess help by phone, always carries phone with him. Recommendation Recommendations Return to prior living situation;Home PT Equipment Recommended Walker 4 wheeled Recommendation Comments limited endurance, would benefit from ongoing HHPT for balance/gait training for improved activity tolerance and safety with mobility. Prior Function Level of [place] Independent with functional mobility;Independent with ADLs;Independe nt with IADLs Lives With Alone Receives Help From Other (Comment) ([facility] staff) Employment Retired for age RLE Assessment RLE Assessment (mild functional weakness) LLE Assessment LLE Assessment (mild functional weakness) Cognition Overall Cognitive Status WFL Orientation Level Oriented Comments hx developmental delay but follows all commands appropriately Sensation Light Touch No apparent deficits Additional Comments BLE NESSA intact Perception Inattention/Neglect Appears intact Initiation Appears intact Vision-Basic Assessment Current Vision Reading glasses Assessment of Patient Status Assessment of Patient Status Decreased functional mobility;Decreased endurance Prognosis Should progress with skilled therapy intervention Safety Devices Safety Devices in Place (call light in reach) 12/03/13 1355 PT Last Visit PT Received On 12/03/13 Reason for Treatment Other (comment) (dizziness) Requires PT Follow Up No Follow up PT Only? No PT Eval/Reassessment Date 12/03/13 Assistance Required 1 person Precautions Other Precautions fall precautions Other Comments Comments Pt in bed, agreeable to PT. Limited by min deconditioning, min MARES and min dizzin ess on initial standing. Luisa bed mob/transfers, SBA for gait for sx monitoring only, demos safety with walker. Appears safe to return home per elderly mobility scale and low fall ri sk per Tinetti. May benefit from 4ww d/t deconditioning, otherwise has needed equipment. M ay benefit from assist for bathing initially to ensure safety. Cognition Overall Cognitive Status WFL Orientation Level Oriented Comments hx developmental delay but follows all commands appropriately Bed Mobility Supine to Sit Modified independent Sit to Supine Modified independent Transfers Sit to/from Stand Modified independent Mobility Weight Bearing Status WBAT RLE;WBAT LLE Ambulation Assistance Supervision Maximal Ambulation Distance (feet) 200 Total Ambulation Distance (feet) 200 Distance limited by? Patient's ability Pattern Alternating;Decreased aaron;Forward flexed (min forward flexion, v.i. for activity pacing and sx monitor) Assistive Device Walker front wheeled Balance Balance (see Tinetti and elderly mobility scale) Modalities Modalities Other therapy Other Therapy ed on mobility techniques, ad use, balance testing and results, poc and recom mendations Activity Tolerance Activity Tolerance Patient limited by fatigue Nurse Made Aware EVE Hamilton notified of pt mobility status and recommendations Safety Devices Safety Devices in Place (call light in reach) Plan Treatment/Interventions Discharge skilled PT services Recommendation Recommendations Return to prior living situation;Home PT Equipment Recommended Walker 4 wheeled Recommendation Comments limited endurance, would benefit from ongoing HHPT for balance/gait training for improved activity tolerance and safety with mobility. Pre/peak/post Position BP Pulse rate O2 sats L/min supine 144/72 sitting 140/69 90 End amb 154/75 100 99 ra Elderly Mobility Scale Lying to Sitting 2 Independent 1 Needs help of 1 person 0 Needs help of 2+ people Sitting to Lying 2 Independent 1 Needs help of 1 person 0 Needs help of 2+ people Sitting to Standing 3 Independent in under 3 seconds 2 Independent in over 3 seconds 1 Needs help of 1 person 0 Needs help of 2+ people Standing 3 Stands without support and able to reach 2 Stands without support but needs support to reach 1 Stands but needs support 0 Stands only with physical support of another person Gait 3 Independent (+ / - stick) 2 Independent with frame 1 Mobile with walking aid but erratic / unsafe 0 Needs physical help to walk or constant supervision Timed Walk (6 metres) Recorded time in seconds: 3 Under 15 seconds 2 16 30 seconds 1 Over 30 seconds 0 Unable to cover 6 metres Functional Reach 4 Over 20 cm. 2 10 - 20 cm. 0 Under 10 cm. Total Score: 17/ 20 Scores over 14 Generally these patients are able to perform mobility manoeuvres alone a nd safely and are independent in basic ADL. Scores between 10 13 generally these patients are borderline in terms of safe mobil ity and independence in ADL i.e. they require some help with some mobility manoeuvres. Scores under 10 generally these patients are dependent in mobility manoeuvres; require help with basic ADL, such as transfers, toileting and dressing. Higher EMS scores for hospitalized patients discharged to home (range=14 20 points) chhaya red with those discharged to home with a caregiver (range=5 13 points) or discharged to [facility] home (range=0 6 points). (Ramírez et al. 1996) 12/03/13 1355 Tinetti Assessment Tool: Balance Tasks Sitting balance 1 Arises 1 Attempts to arise 2 Immediate standing balance 1 Standing balance 1 Nudged 2 Eyes closed 1 Turning 360 degrees - steps 1 Turning 360 degrees - steadiness 1 Sitting down 2 Balance score: 13 Tinetti Assessment Tool: Gait Tasks Initiation of gait 1 Step length & height - right swing foot 1 Step length & height - right foot 1 Step length & height - left swing foot 1 Step length & height - left foot 1 Step symmetry 1 Step continuity 1 Path 1 Trunk 0 Walking stance 1 Gait score: 9 Tinetti Assessment Tool: Total Score Total score (balance + gait): 22 Comment , borderline min-mod fall risk, appears safe with walker Functional Limitation - G Codes Mobility: Walking [...] than 20% impaired, limited or restricted Rationale: =85% Elderly mobility scale onver ivana Transaction, Provider Unknown - 12/03/2013 11:50 AM PDT Case Management by Nir Faith RN at 12/03/13 3560 Author: Nir Faith RN Service: (none) Author Type: Registered Nurse Filed: 12/03/13 2403 Date of Service: 12/03/13 115 Status: Signed Sleeve Machine Tender: Nir Faith RN (Registered Nurse) Called several CPAP providers before locating business that managed pt's CPAP needs. [email or web address] [facility] provided the CPAP originally and state the machine was returned "for lack of use" and for "not following up with Dr. Cortez" which are requirements for insuranc e payment. Spoke with Misty and Autumn of [facility] where pt lives. They will sen d their RN in to assess pt's status for return to their facility. Explained to Misty and Justino montejo the requirements of keeping a CPAP with insurance payments. They stated they would be willing to provide intensive education to pt to improve compliance. If pt is accepted back to [facility] they will arrange discharge transportation. onver ivana Transaction, Provider Unknown - 12/02/2013 9:45 PM PDT Case Management by QUINN Urias at 12/02/132144 Author: QUINN Urias Service: (none) Author Type: Anode Worker Filed: 12/02/132145 Date of Service: 12/02/132144 Status: Signed Sleeve Machine Tender: QUINN Urias (Anode Worker) Discharge planning: CM spoke with pt's RN regarding discharge needs. Per their report, chetan clyde did not identify needs and feel that the pt does not need to be seen by CM at this time. I encouraged them to enter a CM consult as needs arise. onver ivana Transaction, Provider Unknown - 12/02/2013 2:21 PM PDT Case Management by Nir Faith RN at 12/02/13 142 Author: Nir Faith RN Service: (none) Author Type: Registered Nurse Filed: 12/03/13 1130 Date of Service: 12/02/131420 Status: Addendum Sleeve Machine Tender: Nir Faith RN (Registered Nurse) Related Notes: Original Note by Nir Faith RN (Registered Nurse) filed at 1 1128 12/03/13 1116 Discharge Planning Evaluation Admitting Diagnosis dizziness, DM II OOC Readmission Yes-greater than 30 days Support Systems Family members Type of Residence Private residence House type Apartment Bathrooms on 1st Floor 1-Full Independent with ADL's Yes Independent with Mobility Yes;Other (comment) Home Care Services Other (Comment) Caregiver after Discharge No Mental Status Oriented;Other (comment);Unable to answer questions Anticipated Discharge Plan Plan communicated to patient/family Yes Resources Financial concerns No Transportation issues No Patient/Family concerns No Prescription Plan Yes Previous home health equipment No Vascular access device No Ostomy/Drains/Appliances No Anticipated Disposition Facility Type Other (Comment) CM assessment completed 12/02/2013 @ 1420, entered at this time. Met with: Pt and discussed discharge planning, Pt is a 57 y.o., male who lives alone in a Sr and Disabled Apartment and is high function developmentally delayed, his speech is diffic ult to understand w/garbling and slurring Pt states he has assistance w/transportation, "a bus pass", and ex-in-laws are supportive. Pt states he hasn't been using his CPAP because i t's broken and doesn't know how to get it fixed, pt is unable to tell CM where he got the ma chine but believe he gets his home O2 from [employer]. Will check with O2 source w/idea they may be able to fix the CPAP machine. Pt states Dr Cortez ordered it for him. Patient's PCP is: EDIN GUTIÉRREZ Patient's insurance: Medicare/Medicaid Coverage concerns: no Medication coverage/concerns: no [facility] Bedside Delivery: no Community resources utilized / needed: TBD Assistance in transportation: no Identification of any specific education / training: TBD by clinical course Barriers to Discharge / Alternative housing needed: no Anticipated DCP: home NIR FAITH RN CASE MANAGER onver ivana Transaction, Provider Unknown - 12/02/2013 1:23 PM PDT Progress Notes by Carlene Friedman RPH at 12/02/13 132 Author: Carlene Friedman RPH Service: (none) Author Type: Pharmacist Filed: 12/02/131322 Date of Service: 12/02/131322 Status: Signed Sleeve Machine Tender: Carlene Friedman RPH (Pharmacist) Clinical Pharmacy Note: Renal Monitoring Norah Andrea Thomas 57 y.o. male Ht Readings from Last 1 Encounters: 12/02/13 1.803 m (5' 10.98") Wt Readings from Last 1 Encounters: 12/02/13 106.595 kg (235 lb) CREATININE Date Value Range Status 12/02/2013 1.11 0.70 - 1.30 mg/dL Final Testing [place] [facility] [place] [address];[place] [address] CREATININE: 1.11 (12/02/13 0553) Estimated creatinine clearance - 90.1 mL/min Pharmacy dosing for renal function per Dr. Mukherjee. Currently, there are no medications needing to be adjusted. Pharmacy will continue to monit or for changes in medication orders and in renal function and adjust accordingly. Carlene BuenoPh 12/02/2013 1:23 PM docume nted in this encounter H&P Notes Trent Mukherjee MD - 12/02/2013 7:20 AM PDTFormatting of this note might be differe nt from the original. H&P by Trent Mukherjee MD at 12/02/13719 Author: Trent Mukherjee MD Service: Hospitalist Author Type: Physician Filed: 12/02/132108 Date of Service: 12/02/13719 Status: Signed Sleeve Machine Tender: Trent Mukherjee MD (Physician) Merged With [facility] Service: Hospitalist Admission History & Physical Date of Admission: 12/02/2013 Requesting Physician: Dr. Salmon, Emergency Department Reason for Admission: Dizziness, DM Type 2, HTN History Obtained From: patient, chart review CHIEF COMPLAINT: I have been feeling dizzy HISTORY OF PRESENT ILLNESS The patient is a 57 y.o. male with significant past medical history of HTN, DM Type 2, Paro xysmal Atrial Fibrillation, COPD and WARD who presented to the ER with complaints of dizzines s. According to the patient, he has been having dizziness for the past few days and have com e to the ER with similar symptoms. This time he felt light headed, dizzy at home and also fe ll hitting the TV tray. There was no external injury or lacerations he denied any loss of co nsciousness. This was associated with neck pain and urinary discomfort. Due to persistent s ymptom he decided to come to the hospital for evaluation. At the ER, patient was hemodynamically stable. His initial laboratory results showed mild l eukocytosis of 11. 3 while CMP was stable with exception of elevated blood sugars of 338. A CT scan of the head was done which was negative for acute Stroke or Hemorrhages. He was the admitted for further evaluation. REVIEW OF SYSTEMS Review of Systems Constitutional: Positive for diaphoresis and activity change. Negative for fever, chills, a ppetite change, fatigue and unexpected weight change. HENT: Negative. Eyes: Negative. Respiratory: Negative. Cardiovascular: Negative. Gastrointestinal: Negative. Endocrine: Negative. Genitourinary: Negative for dysuria, urgency, hematuria, flank pain and difficulty urinatin g. Musculoskeletal: Positive for myalgias. Negative for back pain, joint swelling, arthralgias and gait problem. Skin: Negative. Allergic/Immunologic: Negative. Neurological: Positive for dizziness, weakness and light-headedness. Negative for seizures, syncope, speech difficulty and numbness. Hematological: Negative. Psychiatric/Behavioral: Negative. Past Medical History [...] - CHOLECYSTECTOMY; Surgeon: Jevon Vargas DO; Location: [facility] MAIN OR; Service: General; Laterality: N/A; Abdominal surgery Cholecystectomy Skin cancer excision 10/10/2012 Procedure: EXCISION - SKIN CANCER; Surgeon: Sy Fierro MD; Location: [facility] MAIN OR ; Service: Plastics; Laterality: Left; upper arm and upper back w/frozen section Esophagogastroduodenoscopy 03/03/2013 Procedure: ESOPHAGOGASTRODUODENOSCOPY; Surgeon: Howie Gibson MD; Location: [facility] ENDOSCOPY; S ervice: Gastroenterology; Laterality: N/A; Colonoscopy 03/04/2013 Procedure: COLONOSCOPY; Surgeon: Howie Gibson MD; Location: [facility] ENDOSCOPY; Service: Gastroe nterology; Laterality: N/A; Upper gastrointestinal endoscopy Skin biopsy Hernia repair 07/03/2013 Procedure: LAPAROSCOPIC - HERNIA - INCISIONAL; Surgeon: Jevon Vargas DO; Location: [facility] MAIN OR; Service: General; Laterality: N/A; Allergies Allergen Reactions Vitamin B12 Rash Family History Problem Relation Age of Onset Heart disease Father Heart disease Sister Diabetes type II Sister Heart Problems Brother SOCIAL HISTORY: Patient lives in the [facility]. He lives in an assisted living [facility]. Has good support system. He denies any recent history of smoking cigarettes but admits to smoking in the past. There is no history of recreational drug use at present or in the [facility]. He admits to drinking alcohol once a week. Prior to Admission medications Medication Sig Start Date End Date Taking? Authorizing Provider amLODIPine (NORVASC) 5 MG tablet 1 TAB BY MOUTH EVERY DAY 10/13/13 Yes Thang Sterling MD antipyrine-benzocaine (AURALGAN) otic solution Place 4 drops into both ears daily. Yes Hi storical Provider ARIPiprazole (ABILIFY) 15 MG tablet Take 20 mg by mouth daily. Yes Historical Provider aspirin 81 MG chewable tablet Take 1 tablet by mouth daily with breakfast. 05/27/13 05/27/14 Yes Trent Mukherjee MD calcium carbonate (TUMS) 500 MG chewable tablet Take 500-1,000 mg by mouth daily as needed. For GERD Yes Historical Provider clonazePAM (KLONOPIN) 1 MG tablet Take 1 mg by mouth 2 (two) times daily as needed for Anxi ety. Yes Historical Provider cloNIDine (CATAPRES) 0.2 MG tablet Take 1 tablet by mouth 3 (three) times daily. 03/05/13 Yes Scott Martínez MD diltiazem (CARDIZEM CD) 240 MG 24 hr capsule Take 1 capsule by mouth daily. 11/30/13 Yes Kristian Mae MD docusate sodium (COLACE) 100 MG capsule Take 100 mg by mouth nightly. Yes Historical Prov ider fenofibrate (TRIGLIDE) 160 MG tablet Take 160 mg by mouth daily. Yes Historical Provider gabapentin (NEURONTIN) 100 MG capsule Take 100 mg by mouth every evening. Yes Historical Provider insulin glargine (LANTUS) 100 UNIT/ML injection Inject 79 Units into the skin nightly. Ye s Historical Provider lamoTRIgine (LAMICTAL) 100 MG tablet Take 100 mg by mouth nightly. Yes Historical Provide r lisinopril (ZESTRIL) 40 MG tablet Take 40 mg by mouth every evening. 03/05/13 03/05/14 Yes Reynold Martínez MD LORazepam (ATIVAN) 1 MG tablet Take 1 mg by mouth every 6 (six) hours as needed. Yes Hist orical Provider lurasidone (LATUDA) 20 MG tablet Take 20 mg by mouth nightly. T Yes Historical Provider meclizine (ANTIVERT) 25 MG tablet Take 1 tablet by mouth 3 (three) times daily as needed (v ertigo). 11/25/13 12/05/13 Yes Zach Tena MD Mometasone Furo-Formoterol Fum (DULERA) [...] mouth 2 (two) times daily. 05/27/13 Yes Trent Mukherjee MD ondansetron (ZOFRAN-ODT) 4 MG disintegrating tablet Take 4 mg by mouth every 3 (three) hour s as needed. Yes Historical Provider oxyCODONE-acetaminophen (PERCOCET) 5-325 MG per tablet Take 1 tablet by mouth every 4 (four ) hours as needed for Pain. Yes Historical Provider paroxetine (PAXIL) 40 MG tablet Take 40 mg by mouth every morning. Yes Historical Provide r pravastatin (PRAVACHOL) 20 MG tablet Take 20 [...] into the lungs as needed. Historical Provider ogozmjigg-ebojempo-hsbzfrtna hydroxide-simethicone Take 40 mLs by mouth daily as needed. Historical Provider loperamide (IMODIUM) 2 MG capsule Take 2 mg by mouth as needed. 4 mg after first loose stoo l, then 2 mg after each further loose stool Not to exceed 8 mg per day. Historical Provider polyethylene glycol (GLYCOLAX) powder DISSOLVE 17GM IN LIQUID AND DRINK BY MOUTH EVERY DAY 04/23/13 Bang Yeh MD HYDROcodone-acetaminophen (NORCO) 5-325 MG per tablet Take 1 tablet by mouth every 6 (six) hours as needed. 12/02/13 Historical Provider meclizine (ANTIVERT) 25 MG tablet Take 25 mg by mouth 3 (three) times daily as needed. Kalpana cations: Sensation of Spinning or Whirling 12/02/13 Historical Provider PHYSICAL EXAM Vital Signs: BP 162/77 | Pulse 88 | Temp(Src) 97.6 F (36.4 C) (Oral) | Resp 20 | Wt 106.595 kg (235 lb) | BMI 32.79 kg/m2 | SpO2 95% Physical Exam Constitutional: He is oriented to person, place, and time. He appears well-developed and we ll-nourished. No distress. Frail but not in acute distress. HENT: Head: Normocephalic and atraumatic. Right Ear: External ear normal. Left Ear: External ear normal. Nose: Nose normal. Mouth/Throat: Oropharynx is clear and moist. No oropharyngeal exudate. Eyes: Conjunctivae are normal. Pupils are equal, round, and reactive to light. Right eye ex hibits no discharge. Left eye exhibits no discharge. No scleral icterus. Neck: Normal range of motion. Neck supple. No JVD present. No tracheal deviation present. N o thyromegaly present. Cardiovascular: Normal rate and regular rhythm. Exam reveals no friction rub. No murmur heard. Pulmonary/Chest: Effort normal and breath sounds normal. No stridor. No respiratory distres s. He has no wheezes. He has no rales. Abdominal: Soft. Bowel sounds are normal. He exhibits no distension and no mass. There is n o tenderness. There is no guarding. Obese, non tender to palpation. Musculoskeletal: Normal range of motion. He exhibits no edema or tenderness. No pedal edema. Neurological: He is alert and oriented to person, place, and time. He has normal reflexes. He displays normal reflexes. No cranial nerve deficit. Skin: Skin is warm and dry. No rash noted. He is not diaphoretic. No erythema. No pallor. Psychiatric: He has a normal mood and affect. His behavior is normal. Judgment and thought content normal. Vitals reviewed. DATA Recent Results (from the past 24 hour(s)) CBC W/AUTO DIFF (REFLEX TO MANUAL) Collection Time 12/01/13 1:04 PM Result Value Range WBC 11.3 (*) 3.8 - 11.0 K/uL RBC 4.79 4.20 - 5.70 M/uL HGB 12.5 (*) 13.2 - 17.0 g/dL HCT 38.5 (*) 39.0 - 50.0 % MCV 80.2 80.0 - 100.0 fl MCH 26.1 (*) 27.0 - 34.0 pg MCHC 32.5 32.0 - 35.5 g/dL RDW SD 41.6 37 - 53 fl PLT 261 150 - 400 K/uL MPV 7.8 DIFF TYPE AUTOMATED NEUTROPHILS 70.3 LYMPHOCYTES 19.6 MONOCYTES 7.8 EOSINOPHILS 1.1 BASOPHILS 1.2 NEUTROPHILS ABS 8.0 (*) 1.9 - 7.4 K/uL LYMPHOCYTES ABS 2.2 1.0 - 3.9 K/uL MONOCYTES ABS 0.9 (*) 0 - 0.8 K/uL EOSINOPHILS ABS 0.1 0 - 0.5 K/uL BASOPHILS ABS 0.1 0 - 0.1 K/uL COMPREHENSIVE METABOLIC PANEL Collection Time 12/01/13 1:04 PM Result Value Range SODIUM 140 135 - 143 mmol/L POTASSIUM 4.8 3.5 - 4.9 mmol/L CHLORIDE 106 99 - 109 mmol/L CO2 31 23 - 32 mmol/L ANION GAP AGAP 8 5 - 20 mmol/L GLUCOSE 338 (*) 65 - 99 mg/dL BUN 16 8 - 25 mg/dL CREATININE 1.13 0.70 - 1.30 mg/dL BUN/CREAT 14 CALCIUM 8.7 8.5 - 10.2 mg/dL TOTAL PROTEIN 7.1 6.3 - 8.2 g/dL Albumin 3.2 (*) 3.6 - 5.0 g/dL GLOBULIN 3.9 1.3 - 4.9 g/dL A/G 0.8 (*) 1.0 - 2.4 TBIL 0.3 0.1 - 1.5 mg/dL ALK PHOS 105 35 - 115 U/L AST 40 10 - 45 U/L ALT 25 10 - 65 U/L EGFR >60 >60 mL/min/1.73m2 KETONES, BLOOD Collection Time 12/01/13 1:04 PM Result Value Range KETONES,SERUM NEGATIVE NEGATIVE ED URINE SCREEN Collection Time 12/01/13 1:30 PM Result Value Range Color, UA see epic Clarity, UA Glucose, UA Bilirubin, UA Ketones, UA Spec Grav, UA Blood, UA pH, UA 5 - 7.5 Protein, UA Urobilinogen, UA 0.2 - 1 Leukocytes, UA Nitrite, UA URINE MICROSCOPIC ONLY Collection Time 12/01/13 1:30 PM Result Value Range WBC 1-5 0 - 5 /hpf RBC 0-2 0 - 2 /hpf EPITHELIAL 1-5 BACTERIA NONE SEEN NONE SEEN POC CLINITEK 10 Collection Time 12/01/13 1:35 PM Result Value Range Color, UA YELLOW Clarity, UA CLEAR Glucose, UA >999 (*) NEGATIVE mg/dL Bilirubin, UA NEGATIVE NEGATIVE Ketones, UA NEGATIVE NEGATIVE mg/dL Spec Grav, UA 1.015 1.001 - 1.035 Blood, UA NEGATIVE NEGATIVE pH, UA 5.5 4.6 - 8.0 Protein, UA NEGATIVE NEGATIVE mg/dL Urobilinogen, UA 0.2 <1.1 mg/dL Nitrite, UA NEGATIVE NEGATIVE WBC, UA NEGATIVE NEGATIVE POCT GLUCOSE Collection Time 12/01/13 3:32 PM Result Value Range GLUCOSE,POC SCREEN 208 (*) 65 - 99 mg/dL URINE MICROSCOPIC ONLY Collection Time 12/02/13 5:45 AM Result Value Range WBC 1-5 0 - 5 /hpf RBC 1-5 0 - 2 /hpf EPITHELIAL 1-5 BACTERIA 1+ (*) NONE SEEN EKG 12 LEAD UNIT PERFORMED Collection Time 12/02/13 5:46 AM Result Value Range Ventricular Rate 90 Atrial Rate 90 P-R Interval 164 QRS Duration 86 Q-T Interval 384 QTC Calculation (Bezet) 469 Calculated P Colbert 21 Calculated R Colbert 38 Calculated T Colbert -15 Diagnosis Value: Normal sinus rhythm T wave abnormality, consider inferior ischemia Prolonged QT Abnormal ECG When compared with ECG of 30-NOV-2013 15:22, Premature atrial complexes are no longer Present This ECG contains Unconfirmed Interpretation Statements. See ED Record for Physician Inter pretation. Confirmed by MUSE READ ONLY, -COMPUTER ([id number]), legal editor SANYA DUPONT ([id number]) on 12/02/2013 6:24:1 8 AM POC CLINITEK 10 Collection Time 12/02/13 5:47 AM Result Value Range Color, UA YELLOW Clarity, UA CLEAR Glucose, UA >999 (*) NEGATIVE mg/dL Bilirubin, UA NEGATIVE NEGATIVE Ketones, UA NEGATIVE NEGATIVE mg/dL Spec Grav, UA 1.015 1.001 - 1.035 Blood, UA NEGATIVE NEGATIVE pH, UA 7.0 4.6 - 8.0 Protein, UA NEGATIVE NEGATIVE mg/dL Urobilinogen, UA 0.2 <1.1 mg/dL Nitrite, UA NEGATIVE NEGATIVE WBC, UA NEGATIVE NEGATIVE CBC W/AUTO DIFF (REFLEX TO MANUAL) Collection Time 12/02/13 5:53 AM Result Value Range WBC 11.5 (*) 3.8 - 11.0 K/uL RBC 4.98 4.20 - 5.70 M/uL HGB 13.3 13.2 - 17.0 g/dL HCT 40.1 39.0 - 50.0 % MCV 80.6 80.0 - 100.0 fl MCH 26.6 (*) 27.0 - 34.0 pg MCHC 33.0 32.0 - 35.5 g/dL RDW SD 41.6 37 - 53 fl PLT 255 150 - 400 K/uL MPV 7.8 DIFF TYPE AUTOMATED NEUTROPHILS 72.4 LYMPHOCYTES 17.3 MONOCYTES 6.7 EOSINOPHILS 3.2 BASOPHILS 0.4 NEUTROPHILS ABS 8.3 (*) 1.9 - 7.4 K/uL LYMPHOCYTES ABS 2.0 1.0 - 3.9 K/uL MONOCYTES ABS 0.8 0 - 0.8 K/uL EOSINOPHILS ABS 0.4 0 - 0.5 K/uL BASOPHILS ABS 0.0 0 - 0.1 K/uL BASIC METABOLIC PANEL Collection Time 12/02/13 5:53 AM Result Value Range SODIUM 140 135 - 143 mmol/L POTASSIUM 3.8 3.5 - 4.9 mmol/L CHLORIDE 104 99 - 109 mmol/L CO2 32 23 - 32 mmol/L ANION GAP AGAP 9 5 - 20 mmol/L GLUCOSE 290 (*) 65 - 99 mg/dL BUN 14 8 - 25 mg/dL CREATININE 1.11 0.70 - 1.30 mg/dL BUN/CREAT 13 CALCIUM 8.7 8.5 - 10.2 mg/dL EGFR >60 >60 mL/min/1.73m2 BRAIN NATRIURETIC PEPTIDE Collection Time 12/02/13 5:53 AM Result Value Range BRAIN NATRIURETIC PEPTIDE 9.5 0 - 100 pg/mL TROPONIN I Collection Time 12/02/13 5:53 AM Result Value Range TROPONIN I <0.020 0.00 - 0.10 ng/mL ECHOCARDIOGRAM IN May 2013 CONCLUSIONS 1. Left ventricular systolic function is hyperdynamic with an estimated EF of >70%. 2. There is mild concentric left ventricular hypertrophy. 3. The left atrium is moderately dilated. 4. The right atrium is mildly enlarged. 5. There is no evidence of aortic stenosis. 6. There is no evidence of pulmonary hypertension. Performing Physician: Everardo Dahl MD MRI BRAIN July 2013 IMPRESSION: 1. No acute intracranial findings to explain left facial droop or dysarthria. 2. A few tiny scattered foci of chronic microvascular ischemic gliosis seen in the anterior frontal lobe white matter. This is a nonspecific finding and is commonly associated with a history of hypertension and/or diabetes, concordant with the patient's medical history of marcus th diseases. 3. Normal variant anatomy noted in the cerebral arterial system with absence of the posteri or communicating arteries which would tend to isolate the anterior and posterior circulation s. Direct origin of the pericallosal artery from the anterior communicating artery noted. No stenosis, occlusion, aneurysm or vasculitis noted. LEM LIST Principal Problem: Dizziness and giddiness Active Problems: Diabetes mellitus, type 2 HTN (hypertension) COPD (chronic obstructive pulmonary disease) Paroxysmal atrial fibrillation Hyperlipidemia Obesity, Class I, BMI 30-34.9 ASSESSMENT & PLAN Dizziness: Etiology possibly due to dehydration, hyperglycemia and or medications. Patient is on multiple BP and Psychiatric medications which could contribute to his symptoms. CT he ad is negative for acute hemorrhages while an echocardiogram done in May 2013 is also stab le. MRI was done in July 2013 which showed microvascular ischemic gliosis but no acute infa rct. Will proceed with carotid dopplers to rule out carotid artery stenosis and repeat MRI of the brain if patient develops focal neurologic deficits. He recently had a cardiac kilo terization by which was stable with only mild findings. Will discontinue Clonidine Patch and check Orthostasis and follow symptoms. DM Type 2: Blood sugars were elevated upon admission. Will resume Lantus and Novolog Insuli n at home dosages and follow accu checks AC and HS. Will add SSI amd check A1C in July was 7 .1 will repeat in AM. Paroxysmal Atrial Fibrillation: Stable and rate controlled, will continue Cardizem and ASA as scheduled. His RADHA S 2 score is 2 and no other anticoagulation other than ASA at this ti sc. COPD: Seems to stable and not in exacerbation. Will resume Spiriva and Albuterol at home do sages. Hypertension: BP seems to be stable. Will resume home medications Lisinopril , Amlodipine, Cardizem as scheduled and discontinue Clonidine patch for now and monitor hemodynamics. Hyperlipidemia: Will continue Pravastatin 20 mg daily and repeat fasting lipid profile in am. DVT prophylaxis with SCD's and Heparin Discharge plans when stable and improved in 24 to 48 hours. Spent more than 70 minutes reviewing patient's labs, diagnostic tests, examination of patie nt, discussing plan of care with patient, coordination of care and answered his questions. Disposition: Admit to CDU Code Status: Full Code Primary Care Physician: EDIN MUKHERJEE MD 12/02/2013 documented in this encounter ED Notes Conversion Transaction, Provider Unknown - 12/02/2013 7:06 AM PDTFormatting of this note m ight be different from the original. ED Notes by Michelle Palomares RN at 12/02/13705 Author: Michelle Palomares RN Service: (none) Author Type: Registered Nurse Filed: 12/02/13706 Date of Service: 12/02/13705 Status: Signed Sleeve Machine Tender: Michelle Palomares RN (Registered Nurse) Transferred care of pt, report to Omaira Palomares RN 12/02/13706 onver ivana Transaction, Provider Unknown - 12/02/2013 6:55 AM PDT ED Notes by Michelle Palomares RN at 12/02/13654 Author: Michelle Palomares RN Service: (none) Author Type: Registered Nurse Filed: 12/02/13654 Date of Service: 12/02/13654 Status: Signed Sleeve Machine Tender: Michelle Palomares RN (Registered Nurse) Pt returned from CT. Pt asleep, with snoring respirations. Michelle Palomares RN 12/02/13654 onver ivana Transaction, Provider Unknown - 12/02/2013 6:53 AM PDT ED Notes by Doris Moya at 12/02/13652 Author: Doris Moya Service: (none) Author Type: Research Quality Assurance Analyst Filed: 12/02/13652 Date of Service: 12/02/13652 Status: Signed Sleeve Machine Tender: Doris Moya (Research Quality Assurance Analyst) Pt returned from CT Doris Moya 12/02/13652 onver ivana Transaction, Provider Unknown - 12/02/2013 6:08 AM PDT ED Notes by Michelle Palomares RN at 12/02/13607 Author: Michelle Palomares RN Service: (none) Author Type: Registered Nurse Filed: 12/02/13607 Date of Service: 12/02/13607 Status: Signed Sleeve Machine Tender: Michelle D Jelani, RN (Registered Nurse) Assumed care of pt, report from Ivonne Palomares RN 12/02/1308 onver ivana Transaction, Provider Unknown - 12/02/2013 5:48 AM PDT ED Notes by Suresh Marin RN at 12/02/1348 Author: Suresh Marin RN Service: (none) Author Type: Registered Nurse Filed: 12/02/1351 Date of Service: 12/02/13547 Status: Signed Sleeve Machine Tender: Suresh Marin RN (Registered Nurse) Pt here with, hx of dizziness and stevens hiting his L shoulder and head on a night stand.. Pt scott denies sob or chest pain. Skin cool and dry. Suresh Marin RN 12/02/1351 onver ivana Transaction, Provider Unknown - 12/02/2013 5:40 AM PDT ED Notes by Suresh Marin RN at 12/02/1340 Author: Suresh Marin RN Service: (none) Author Type: Registered Nurse Filed: 12/02/1310 Date of Service: 12/02/13539 Status: Signed Sleeve Machine Tender: Suresh Marin RN (Registered Nurse) No obvious trauma to scalp or back. Suresh Marin RN 12/02/1310 onver ivana Transaction, Provider Unknown - 12/02/2013 5:37 AM PDT ED Notes by Leslie Allen RN at 12/02/1337 Author: Leslie Allen RN Service: (none) Author Type: Registered Nurse Filed: 12/02/1357 Date of Service: 12/02/13536 Status: Signed Sleeve Machine Tender: Leslie Allen RN (Registered Nurse) Pt placed on 2 liters nasal cannula, SPO2 93%. Leslie Allen RN 12/02/1357 onver ivana Transaction, Provider Unknown - 12/02/2013 5:28 AM PDT ED Notes by Onel Kenney RN at 12/02/13527 Author: Onel Kenney RN Service: (none) Author Type: Registered Nurse Filed: 12/02/13527 Date of Service: 12/02/13527 Status: Signed Sleeve Machine Tender: Onel Kenney RN (Registered Nurse) Bed: 03 Expected date: Expected time: Means of arrival: Comments: obert De La Cruz DO - 12/02/2013 5:28 AM PDTFormatting of this note might be different from t he original. ED Provider Notes by Robert Salmon DO at 12/02/13527 Author: Robert Salmon DO Service: Emergency Department Author Type: Physician Filed: 12/02/13 0717 Date of Service: 12/02/13527 Status: Addendum Sleeve Machine Tender: Robert Salmon DO (Physician) Related Notes: Original Note by Robert Salmon DO (Physician) filed at 12/02/13 0716 Merged With [facility] Department of Emergency Medicine 5:28 AM History of Present Illness Patient Identification Norah Gr is a 57 y.o. male. Patient information was obtained from patient and EMS personnel. History/Exam limitations: none. Patient presented to the Emergency Department by: History of Presenting Illness The patient is a 57 y.o. year old male presenting with Chief Complaint Patient presents with Dizziness . Location- Neurological Onset- 3 weeks ago Duration- intermittent Severity/Character- The patient reports that he is "always dizzy". Worse with- Exertion Denies- fever or cough Context- The patient reports that he fell and hit the TV tray. The patient reports that he fell because he feels dizziness. The patient reports he hit the L side of his head on the TV tray and the wall. The patient reports that he believes his blood sugar is low. The patient states that he takes insulin and has eaten recently. The patient is currently suing an Clon idine patch for his HTN. Dizziness, HTN, blood sugar problems. The patient complains of dizziness, neck pain, abdominal pain and painful urination (for a couple weeks). EMS: Pt has been seen three times in the past 2 days with similar symptoms. EMS states that the patients blood pressure is 156. EMS reports that the patient's symptoms appear to be worse s bartolo the last time they saw him. PCP: EDIN GUTIÉRREZ Past Medical History Diagnosis [...] - CHOLECYSTECTOMY; Surgeon: Jevon Vargas DO; Location: [facility] OR; Service: General; Laterality: N/A; Abdominal surgery Cholecystectomy Skin cancer excision 10/10/2012 Procedure: EXCISION - SKIN CANCER; Surgeon: Sy Fierro MD; Location: [facility] ; Service: Plastics; Laterality: Left; upper arm and upper back w/frozen section Esophagogastroduodenoscopy 03/03/2013 Procedure: ESOPHAGOGASTRODUODENOSCOPY; Surgeon: Howie Gibson MD; Location: [facility]; S ervice: Gastroenterology; Laterality: N/A; Colonoscopy 03/04/2013 Procedure: COLONOSCOPY; Surgeon: Howie Gibson MD; Location: [facility]; Service: Gastroe nterology; Laterality: N/A; Upper gastrointestinal endoscopy Skin biopsy Hernia repair 07/03/2013 Procedure: LAPAROSCOPIC - HERNIA - INCISIONAL; Surgeon: Jevon Vargas DO; Location: [facility] OR; Service: General; Laterality: [...] by mouth daily with breakfast. 05/27/13 05/27/14 Trent Mukherjee MD calcium carbonate (TUMS) 500 MG chewable [...] into the skin nightly. H istorical Provider pmkmfzzxa-bcdxeixa-pxjbhjflg hydroxide-simethicone Take 40 mLs by mouth daily [...] by mouth 2 (two) times daily. 05/27/13 Trent Mukherjee MD ondansetron (ZOFRAN-ODT) 4 MG disintegrating tablet [...] sore throat CV/Resp: Negative for chest pain, oxwpwywmv-hn-lysabr, cough GI: Positive for abdominal pain Negative for nausea, vomiting, or diarrhea : Positive for dysuria (for a couple weeks) Negative for urinary problems Musculoskeletal: Positive for neck pain Negative for back pain, joint pain Skin: Negative for rash Neuro/Psych: Positive for dizziness Negative for headache Endo/heme/Lymph: Negative for swollen lymph nodes, easy bruising All other systems reviewed and negative except as noted. Physical Exam BP 176/84 | Pulse 92 | Temp(Src) 97.1 F (36.2 C) (Oral) | Resp 18 | Wt 106.595 kg (235 lb) | BMI 32.79 kg/m2 | SpO2 88% Vital signs interpretation: HTN otherwise WNL Pulse Oximetry interpretation: Hypoxemic General: Alert, in no apparent distress Eyes: Normal inspection, pupils equal and round, non-icteric ENT: Ears normal Nose normal Moist mucous membranes Neck: Normal inspection Supple Cardiovasc: Rate and rhythm normal No murmurs Respiratory: Breath sounds normal bilaterally No rales, wheezing or rhonchi Abdomen: Soft, non-tender, non-distended No guarding or rebound Back: Normal inspection Extremities: No swelling or redness Skin: Color normal Warm and dry No rash Neuro: Neuro: somnolent. Oriented x2. Speech clear and appropriate. No aphasia, no dysarthria. No facial droop PERRL, EOMI, no nystagmus, no visual deficits CN II-XII grossly intact Motor strength 4/5 UE/LE, no deficits Strong symmetric driver retraining instructor strength No pronator drift No lower extremity drift Intact finger to nose Difficulty keeping balance transferring to bed Medical Decision Making and Emergency Department Course ED Department Course Patient presents to ED with complaints of dizziness. On exam the patient has unsteady gait and somnolence. My DDx includes, but is not limited to: ICH, infection, ARF, nonspecific diz zieness, vertigo, CVA, VBI, among others. Will order urine studies, labs, CXR, HCT, and reev aluate the patient. After taking a thorough history and incorporating physical exam finding s as well as any labwork and radiology studies into my working diagnosis I feel the patient most likely has unsteady gait and will treat accordingly. BP 176/84 | Pulse 92 | Temp(Src) 97.1 F (36.2 C) (Oral) | Resp 18 | Wt 106.595 kg (235 lb) | BMI 32.79 kg/m2 | SpO2 88% [address] Summers and he will admit the patient for dizzinss and likely get MR [place]. Pt is satting 96% on RA and sleeping in bed comfortably. Norah was evaluated in the emergency department through taking thorough history of present illness, past medical history including medical conditions, current medications, allergies t o medications, social history, and family history. A physical exam was performed. Through incorporating the history of present illness and physical exam findings, clinical judgment was used to determine if any diagnostic tests or imaging was necessary. Once the workup was complete, appropriate consults were obtained as above and Norah was admitted to the [facility] for further treatment and diagnosis. Records Reviewed Old medical records. Nursing notes. Previous ED visits for similar and unrelated complaints. Laboratory Evaluation Results Procedure Component Value Ref Range Date/Time Troponin I, Lab [[id number]] Collected: 12/02/13552 Order Status: Completed Updated: 12/02/13646 Specimen Information: Blood TROPONIN I <0.020 0.00 - 0.10 ng/mL Basic metabolic panel [[id number]] (Abnormal) Collected: 12/02/13552 Order Status: Completed Updated: 12/02/13646 Specimen Information: Blood SODIUM 140 135 - 143 mmol/L POTASSIUM 3.8 3.5 - 4.9 mmol/L CHLORIDE 104 99 - 109 mmol/L CO2 32 23 - 32 mmol/L ANION GAP AGAP 9 5 - 20 mmol/L GLUCOSE 290 (H) 65 - 99 mg/dL BUN 14 8 - 25 mg/dL CREATININE 1.11 0.70 - 1.30 mg/dL BUN/CREAT 13 CALCIUM 8.7 8.5 - 10.2 mg/dL EGFR >60 >60 mL/min/1.73m2 CBC with differential [[id number]] (Abnormal) Collected: 12/02/13552 Order Status: Completed Updated: 10/27/14 0642 Specimen Information: Blood WBC 11.5 (H) 3.8 - 11.0 K/uL RBC 4.98 4.20 - 5.70 M/uL HGB 13.3 13.2 - 17.0 g/dL HCT 40.1 39.0 - 50.0 % MCV 80.6 80.0 - 100.0 fl MCH 26.6 (L) 27.0 - 34.0 pg MCHC 33.0 32.0 - 35.5 g/dL RDW SD 41.6 37 - 53 fl PLT 255 150 - 400 K/uL MPV 7.8 fl DIFF TYPE AUTOMATED NEUTROPHILS 72.4 % LYMPHOCYTES 17.3 % MONOCYTES 6.7 % EOSINOPHILS 3.2 % BASOPHILS 0.4 % NEUTROPHILS ABS 8.3 (H) 1.9 - 7.4 K/uL LYMPHOCYTES ABS 2.0 1.0 - 3.9 K/uL MONOCYTES ABS 0.8 0 - 0.8 K/uL EOSINOPHILS ABS 0.4 0 - 0.5 K/uL BASOPHILS ABS 0.0 0 - 0.1 K/uL Urine microscopic [[id number]] (Abnormal) Collected: 12/02/1345 Order Status: Completed Updated: 12/02/1335 Specimen Information: Urine / Urine, Clean Catch WBC 1-5 0 - 5 /hpf RBC 1-5 0 - 2 /hpf EPITHELIAL 1-5 /lpf BACTERIA 1+ (A) NONE SEEN BNP [[id number]] Collected: 12/02/1353 Order Status: Completed Updated: 12/02/1332 Specimen Information: Blood BRAIN NATRIURETIC PEPTIDE 9.5 0 - 100 pg/mL POC clinitek 10 [[id number]] (Abnormal) Collected: 12/02/1347 Order Status: Completed Updated: 12/02/1348 Color, UA YELLOW Clarity, UA CLEAR Glucose, [...] EKG Evaluation Imaging Results CT Head Non-Contrast (Preliminary result) Result time: 12/02/13 07:07:31 ED Interpretation Documented by Robert Salmon DO (12/02/13 07:07:31, Merged With [facility] Emergency Department, Emergency Medicine) Intra-axial: no parenchymal hemorrhage or areas of hypodensity Extra-axial: no fluid collections Sinuses: good aeration with no fluid collections Mastoid Air Cells: no fluid collections Bones: no obvious fractures Ventricles, cisterns, sulci are not enlarged and appear normal No midline shift or mass effect Normal morrissey/white matter differentiation Impression: no obvious acute abnormality XR chest PA and lateral (Preliminary result) Result time: 12/02/13 06:59:27 ED Interpretation Documented by Robert Salmon DO (12/02/13 06:38:07, Merged With [facility] Emergency Department, Emergency Medicine) No focal lung opacities. Mediastinum is within normal limits. Heart size is within normal limits. The left hemidiaphragm is partially obscured in the left costophrenic sulcus which could represent effusion. Impression: No obvious acute abnormalities but question subtle effusion in the left lung base. EKG 5:46 Rate- 90 Rhythm- Sinus T-Wave inversion in the inferior leads Intervals- normal QTc- normal Colbert- normal Compared to prior- 11/30/2013 with similar appearance EKG viewed independently and interpreted by me contemporaneously: Robert Salmon DO ED Diagnoses Final diagnoses Dizziness Hypoxia Somnolence Disposition: ED Disposition Admit/Observation Bed request special needs: None Diagnosis?: Dizziness Follow-up Information None Discharge Medications: New Prescriptions No new medications This chart has been created using [employer] Speech Recognition software. The chart has been reviewed and there may still exist sound alike word errors. Procedures Additional Documentation Procedures Attending Note: Documentation assistance provided by DEREK WU (Scribch[employer]). Information recorded by the scribe has been reviewed and validated by me. I ag ree with its contents. DO Robert Handley DO 12/02/13 0716 Robert Salmon DO 12/02/13 0717 documente d in this encounter Miscellaneous Notes Plan of Care - Conversion Transaction, Provider Unknown - 12/03/2013 9:51 AM PDT Plan of Care by Joy Johnson RN at 12/03/13950 Author: Joy Johnson RN Service: (none) Author Type: Registered Nurse Filed: 12/03/13950 Date of Service: 12/03/13950 Status: Signed Sleeve Machine Tender: Joy Johnson RN (Registered Nurse) Problem: Pain Goal: Patient s pain/discomfort is manageable Assess and monitor patient s pain using appropriate pain scale. Collaborate with interdis ciplinary team and initiate plan and interventions as ordered. Re-assess patient s pain le tracy approximately 1-2 hours after pain management intervention. Premedicate as needed. Outcome: Progressing Patient denies pain at this time. Problem: Safety Goal: [...] band on, call light within reach, bed in lowest position, rails up 2/4, non skid socks on. Problem: Psychosocial Needs Goal: Demonstrates ability to cope with hospitalization/illness Assess and monitor patients ability to cope with his/her illness. Outcome: Progressing Patient shows positive coping behavior. Comments: JOY JOHNSON RN, 12/03/2013 9:51 AM docume nted in this encounter Plan [...] | | | | | | [place] [address] | | | | | | [phone] | | | | | | | | +--------+ + + + + documented as of this encounter Procedures + +--------+ + + + | Procedure Name | Priori | Date/Time | Associated Diagnosis | Comments | | | ty | | | | + +--------+ + + + | POC GLUCOSE | Routin | 12/03/2013 | | Results for this | | | e | 11:11 AM | | procedure are in the | | | | PDT | | results section. | + +--------+ + + + | POC GLUCOSE | Routin | 12/03/2013 | | Results for this | | | e | 5:41 AM | | procedure are in the | | | | PDT | | results section. | + +--------+ + + + | EXTERNAL LAB: CBC | Routin | 12/03/2013 | | Results for this | | | e | 4:55 AM | | procedure are in the | | | | PDT | | results section. | + +--------+ + + + | LIPID PANEL | Routin | 12/03/2013 | | Results for this | | | e | 4:55 AM | | procedure are in the | | | | PDT | | results section. | + +--------+ + + + | TSH | Routin | 12/03/2013 | | Results for this | | | e | 4:55 AM | | procedure are in the | | | | PDT | | results section. | + +--------+ + + + | PHOSPHORUS | Routin | 12/03/2013 | | Results for this | | | e | 4:55 AM | | procedure are in the | | | | PDT | | results section. | + +--------+ + + + | MAGNESIUM | Routin | 12/03/2013 | | Results for this | | | e | 4:55 AM | | procedure are in the | | | | PDT | | results section. | + +--------+ + + + | HEMOGLOBIN A1C | Routin | 12/03/2013 | | Results for this | | | e | 4:55 AM | | procedure are in the | | | | PDT | | results section. | + +--------+ + + + | BASIC METABOLIC | Routin | 12/03/2013 | | Results for this | | PANEL | e | 4:55 AM | | procedure are in the | | | | PDT | | results section. | + +--------+ + + + | POC GLUCOSE | Routin | 12/02/2013 | | Results for this | | | e | 9:04 PM | | procedure are in the | | | | PDT | | results section. | + +--------+ + + + | POC GLUCOSE | Routin | 12/02/2013 | | Results for this | | | e | 5:52 PM | | procedure are in the | | | | PDT | | results section. | + +--------+ + + + | POC GLUCOSE | Routin | 12/02/2013 | | Results for this | | | e | 4:25 PM | | procedure are in the | | | | PDT | | results section. | + +--------+ + + + | VAS CAROTID DUPLEX | Routin | 12/02/2013 | | Results for this | | BILATERAL | e | 12:17 PM | | procedure are in the | | | | PDT | | results section. | + +--------+ + + + | POC GLUCOSE | Routin | 12/02/2013 | | Results for this | | | e | 12:08 PM | | procedure are in the | | | | PDT | | results section. | + +--------+ + + + | POC GLUCOSE | Routin | 12/02/2013 | | Results for this | | | e | 8:21 AM | | procedure are in the | | | | PDT | | results section. | + +--------+ + + + | CT HEAD WO CONTRAST | Routin | 12/02/2013 | | Results for this | | | e | 6:53 AM | | procedure are in the | | | | PDT | | results section. | + +--------+ + + + | XR CHEST 2 VIEWS | Routin | 12/02/2013 | | Results for this | | | e | 6:18 AM | | procedure are in the | | | | PDT | | results section. | + +--------+ + + + | EXTERNAL LAB: CBC | Routin | 12/02/2013 | | Results for this | | | e | 5:53 AM | | procedure are in the | | | | PDT | | results section. | + +--------+ + + + | TROPONIN I | Routin | 12/02/2013 | | Results for this | | | e | 5:53 AM | | procedure are in the | | | | PDT | | results section. | + +--------+ + + + | B TYPE NATRIURETIC | Routin | 12/02/2013 | | Results for this | | PEPTIDE | e | 5:53 AM | | procedure are in the | | | | PDT | | results section. | + +--------+ + + + | BASIC METABOLIC | Routin | 12/02/2013 | | Results for this | | PANEL | e | 5:53 AM | | procedure are in the | | | | PDT | | results section. | + +--------+ + + + | ECG 12 LEAD | Routin | 12/02/2013 | | Results for this | | | e | 5:46 AM | | procedure are in the | | | | PDT | | results section. | + +--------+ + + + | URINALYSIS, | Routin | 12/02/2013 | | Results for this | | MICROSCOPIC ONLY | e | 5:45 AM | | procedure are in the | | | | PDT | | results section. | + +--------+ + + + documented in this encounter Results POC Glucose (12/03/2013 11:11 AM PDT) + + + + + + | Component | Value | Ref Range | Performed | Pathologist | | | | | At | Signature | + + + + + + | Glucose, | 260 (H)Comment: Testing | 65 - 99 mg/dL | EXTERNAL | | | Fingerstick | performed at [facility] | | LAB | | | | [address];[place] | | | | | | [address] | | | | + + + + + + + + | Specimen | + + | | + + + +---------+ + + | Performing | Address | City/State/Zipcode | Phone Number | | Organization | | | | + +---------+ + + | EXTERNAL LAB | | | | + +---------+ + + POC Glucose (12/03/2013 5:41 AM PDT) + + + + + + | Component | Value | Ref Range | Performed | Pathologist | | | | | At | Signature | + + + + + + | Glucose, | 164 (H)Comment: Testing | 65 - 99 mg/dL | EXTERNAL | | | Fingerstick | performed at [facility];[address] | | LAB | | | | [address];[place] | | | | | | [address] | | | | + + + + + + + + | Specimen | + + | | + + + +---------+ + + | Performing | Address | City/State/Zipcode | Phone Number | | Organization | | | | + +---------+ + + | EXTERNAL LAB | | | | + +---------+ + + External Lab: CBC (12/03/2013 4:55 AM PDT) + + + + + + | Component | Value | Ref Range | Performed | Pathologist | | | | | At | Signature | + + + + + + | WBC | 10.7Comment: Testing | 3.8 - 11.0 K/uL | EXTERNAL | | | | performed at [facility], [address] | | LAB | | | | [address], | | | | | | [place] [address] | | | | + + + + + + | Non- | 4.97Comment: Testing | 4.20 - 5.70 | EXTERNAL | | | Red Blood | performed at [facility], [address] | M/uL | LAB | | | Cells | [address], | | | | | Counted | [place] [address] | | | | + + + + + + | Hemoglobin | 13.2Comment: Testing | 13.2 - 17.0 | EXTERNAL | | | | performed at [facility], [address] | g/dL | LAB | | | | [address], | | | | | | [place] [address] | | | | + + + + + + | Hematocrit, | 40.7Comment: Testing | 39.0 - 50.0 % | EXTERNAL | | | POC | performed at [facility], [address] | | LAB | | | | [address], | | | | | | [place] [address] | | | | + + + + + + | MCV | 82.0Comment: Testing | 80.0 - 100.0 fl | EXTERNAL | | | | performed at [facility], [address] | | LAB | | | | [address], | | | | | | [place] [address] | | | | + + + + + + | MCH | 26.7 (L)Comment: Testing | 27.0 - 34.0 pg | EXTERNAL | | | | performed at [facility], [address] | | LAB | | | | [address], | | | | | | [place] [address] | | | | + + + + + + | MCHC | 32.5Comment: Testing | 32.0 - 35.5 | EXTERNAL | | | | performed at [facility], [address] | g/dL | LAB | | | | [address], | | | | | | [place] [address] | | | | + + + + + + | RDW-CV | 40.7Comment: Testing | 37 - 53 fl | EXTERNAL | | | | performed at [facility], [address] | | LAB | | | | [address], | | | | | | [place] [address] | | | | + + + + + + | Platelet | 255Comment: Testing | 150 - 400 K/uL | EXTERNAL | | | Count | performed at [facility], [address] | | LAB | | | Plasma | [address], | | | | | | [place] [address] | | | | + + + + + + | MPV | 7.7Comment: Testing | fl | EXTERNAL | | | | performed at [facility], [address] | | LAB | | | | [address], | | | | | | [place] [address] | | | | + + + + + + | Differentia | AUTOMATEDComment: | | EXTERNAL | | | l Type | Testing performed at | | LAB | | | | [facility], [address] | | | | | | [place] | | | | | | [address] | | | | + + + + + + | % Segmented | 52.6Comment: Testing | % | EXTERNAL | | | | performed at [facility], [address] | | LAB | | | Neutrophils | [address], | | | | | | [place] [address] | | | | + + + + + + | % | 34.5Comment: Testing | % | EXTERNAL | | | Lymphocytes | performed at [facility], [address] | | LAB | | | | [address], | | | | | | [place] [address] | | | | + + + + + + | % Monocytes | 8.0Comment: Testing | % | EXTERNAL | | | | performed at [facility], [address] | | LAB | | | | [address], | | | | | | [place] [address] | | | | + + + + + + | % | 4.3Comment: Testing | % | EXTERNAL | | | Eosinophils | performed at [facility], [address] | | LAB | | | | [address], | | | | | | [place] [address] | | | | + + + + + + | % Basophils | 0.6Comment: Testing | % | EXTERNAL | | | | performed at [facility], [address] | | LAB | | | | [address], | | | | | | [place] [address] | | | | + + + + + + | Absolute | 5.7Comment: Testing | 1.9 - 7.4 K/uL | EXTERNAL | | | Segmented | performed at [facility], [address] | | LAB | | | Neutrophils | [address], | | | | | | [place] [address] | | | | + + + + + + | Absolute | 3.7Comment: Testing | 1.0 - 3.9 K/uL | EXTERNAL | | | Lymphocytes | performed at [facility], [address] | | LAB | | | | [address], | | | | | | [place] [address] | | | | + + + + + + | Absolute | 0.9 (H)Comment: Testing | 0 - 0.8 K/uL | EXTERNAL | | | Monocytes | performed at [facility], [address] | | LAB | | | | [address], | | | | | | [place] [address] | | | | + + + + + + | Absolute | 0.5Comment: Testing | 0 - 0.5 K/uL | EXTERNAL | | | Eosinophils | performed at [facility], [address] | | LAB | | | | [address], | | | | | | [place] [address] | | | | + + + + + + | Absolute | 0.1Comment: Testing | 0 - 0.1 K/uL | EXTERNAL | | | Basophils | performed at [facility], [address] | | LAB | | | | [address], | | | | | | [place] [address] | | | | + + + + + + + + | Specimen | + + | Blood specimen | | (specimen) | + + + +---------+ + + | Performing | Address | City/State/Zipcode | Phone Number | | Organization | | | | + +---------+ + + | EXTERNAL LAB | | | | + +---------+ + + TSH (12/03/2013 4:55 AM PDT) + + + + + + | Component | Value | Ref Range | Performed | Pathologist | | | | | At | Signature | + + + + + + | TSH | 0.98Comment: Testing | 0.45 - 5.10 | EXTERNAL | | | | performed at [facility], [address] | uIU/mL | LAB | | | | [address], | | | | | | [place] [address] | | | | + + + + + + + + | Specimen | + + | Blood specimen | | (specimen) | + + + +---------+ + + | Performing | Address | City/State/Zipcode | Phone Number | | Organization | | | | + +---------+ + + | EXTERNAL LAB | | | | + +---------+ + + Phosphorus (12/03/2013 4:55 AM PDT) + + + + + [...] | | | | | [place] [address] | | | | + + + + + + + + | Specimen | + + | Blood specimen | | (specimen) | + + + +---------+ + + | Performing | Address | City/State/Zipcode | Phone Number | | Organization | | | | + +---------+ + + | EXTERNAL LAB | | | | + +---------+ + + Magnesium (12/03/2013 4:55 AM PDT) + + + + + + | Component | Value | Ref Range | Performed | Pathologist | | | | | At | Signature | + + + + + + | Magnesium | 1.7Comment: Testing | 1.7 - 2.4 mg/dL | EXTERNAL | | | | performed at [facility], [address] | | LAB | | | | [address], | | | | | | [place] [address] | | | | + + + + + + + + | Specimen | + + | Blood specimen | | (specimen) | + + + +---------+ + + | Performing | Address | City/State/Zipcode | Phone Number | | Organization | | | | + +---------+ + + | EXTERNAL LAB | | | | + +---------+ + + Hemoglobin A1C (12/03/2013 4:55 AM PDT) + + + + + + | Component | Value | Ref Range | Performed | Pathologist | | | | | At | Signature | + + + + + + | Hemoglobin | 7.4 (H)Comment: The | 4.0 - 6.0 % | EXTERNAL | | | A1c | [facility] | | LAB | | | [...] | | | performed at [facility], [address] | | | | [address], | | | | | | [place] [address] | | | | + + + + + + | Glycohemogl | 166Comment: The ADA | mg/dL | EXTERNAL | [...] | | | performed at [facility], [address] | | | | | | [facility], | | | | | | [place] [address] | | | | + + + + + + + + | Specimen | + + | Blood specimen | | (specimen) | + + + +---------+ + + | Performing | Address | City/State/Zipcode | Phone Number | | Organization | | | | + +---------+ + + | EXTERNAL LAB | | | | + +---------+ + + Lipid Panel (12/03/2013 4:55 AM PDT) + + + + + + | Component | Value | Ref Range | Performed | Pathologist | | | | | At | Signature | + + + + + + | Cholesterol | 132Comment: Testing | mg/dL | EXTERNAL | | | | performed at [facility], [address] | | LAB | | | | [address], | | | | | | [place] [address] | | | | + + + + + + | Triglycerid | 236 (H)Comment: Testing | mg/dL | EXTERNAL | | | es | performed at [facility], [address] | | LAB | | | | [address], | | | | | | [place] [address] | | | | + + + + + + | HDL | 25 (L)Comment: Testing | mg/dL | EXTERNAL | | | | performed at [facility], [address] | | LAB | | | | [address], | | | | | | [place] [address] | | | | + + + + + + | LDL, | 60Comment: Testing | mg/dL | EXTERNAL | | | Calculated | performed at [facility], [address] | | LAB | | | | [address], | | | | | | [place] [address] | | | | + + + [...] + +---------+ + + Basic Metabolic Panel (12/03/2013 4:55 AM PDT) + + + + + [...] | | | | | [place] [address] | | | | + + + + + + | K | 3.5Comment: Testing | 3.5 - 4.9 | EXTERNAL | | | | performed at [facility], [address] | mmol/L | LAB | | | | [address], | | | | | | [place] [address] | | | | + + + + + + | Cl | 103Comment: Testing | 99 - 109 mmol/L | EXTERNAL | | | | performed at [facility], [address] | | LAB | | | | [address], | | | | | | [place] [address] | | | | + + + + + + | CO2 | 32Comment: Testing | 23 - 32 mmol/L | EXTERNAL | | | | performed at [facility], [address] | | LAB | | | | [address], | | | | | | [place] [address] | | | | + + + + + + | Anion Gap | 9Comment: Testing | 5 - 20 mmol/L | EXTERNAL | | | | performed at [facility], [address] | | LAB | | | | [address], | | | | | | [place] [address] | | | | + + + + + + | Glucose, | 159 (H)Comment: Testing | 65 - 99 mg/dL | EXTERNAL | | | Fasting | performed at [facility], [address] | | LAB | | | | [address], | | | | | | [place] [address] | | | | + + + + + + | BUN | 16Comment: Testing | 8 - 25 mg/dL | EXTERNAL | | | | performed at [facility], [address] | | LAB | | | | [address], | | | | | | [place], [place] [address] | | | | + + + + + + | Creatinine | 1.01Comment: Testing | 0.70 - 1.30 | EXTERNAL | | | | performed at [facility], [address] | mg/dL | LAB | | | | [address], | | | | | | [place] [address] | | | | + + + + + + | BUN/Creatin | 16Comment: Testing | | EXTERNAL | | | ine Ratio | performed at [facility], [address] | | LAB | | | | [address], | | | | | | [place] [address] | | | | + + + + + + | Calcium | 9.0Comment: Testing | 8.5 - 10.2 | EXTERNAL | | | | performed at [facility], [address] | mg/dL | LAB | | | | [address], | | | | | | [place] [address] | | | | + + [...] | | | | | | at [facility], [address] | | | | | | [address], | | | | | | [place] [address] | | | | + + + + + + + + | Specimen | + + | Blood specimen | | (specimen) | + + + +---------+ + + | Performing | Address | City/State/Zipcode | Phone Number | | Organization | | | | + +---------+ + + | EXTERNAL LAB | | | | + +---------+ + + POC Glucose (12/02/2013 9:04 PM PDT) + + + + + + | Component | Value | Ref Range | Performed | Pathologist | | | | | At | Signature | + + + + + + | Glucose, | 215 (H)Comment: Testing | 65 - 99 mg/dL | EXTERNAL | | | Fingerstick | performed at [facility];[address] | | LAB | | | | [address];[place], [place] | | | | | | [address] | | | | + + + + + + + + | Specimen | + + | | + + + +---------+ + + | Performing | Address | City/State/Zipcode | Phone Number | | Organization | | | | + +---------+ + + | EXTERNAL LAB | | | | + +---------+ + + POC Glucose (12/02/2013 5:52 PM PDT) + + + + + + | Component | Value | Ref Range | Performed | Pathologist | | | | | At | Signature | + + + + + + | Glucose, | 269 (H)Comment: Testing | 65 - 99 mg/dL | EXTERNAL | | | Fingerstick | performed at [facility];[address] | | LAB | | | | [address];[place] | | | | | | [address] | | | | + + + + + + + + | Specimen | + + | | + + + +---------+ + + | Performing | Address | City/State/Zipcode | Phone Number | | Organization | | | | + +---------+ + + | EXTERNAL LAB | | | | + +---------+ + + POC Glucose (12/02/2013 4:25 PM PDT) + + + + + + | Component | Value | Ref Range | Performed | Pathologist | | | | | At | Signature | + + + + + + | Glucose, | 195 (H)Comment: Testing | 65 - 99 mg/dL | EXTERNAL | | | Fingerstick | performed at [facility];[address] | | LAB | | | | [address];[place] | | | | | | [address] | | | | + + + + + + + + | Specimen | + + | | + + + +---------+ + + | Performing | Address | City/State/Zipcode | Phone Number | | Organization | | | | + +---------+ + + | EXTERNAL LAB | | | | + +---------+ + + VAS Carotid Duplex Bilateral (12/02/2013 12:17 PM PDT) + + | Specimen | + + | | + + + + + | Impressions | Performed At | + + + | 1. Mild atherosclerotic plaque in both common carotid | | | bifurcations, without flow-limiting stenosis. 2. Elevated peak | | | systolic velocities in the right and left external carotid arteries | | | appear to be physiologic rather than pathologic. 3. Vertebral blood | | | flow is antegrade bilaterally. Grades: 1 Stenosis | | | =01-30% PSV <125 cm/sec EDV (cm/s)<40 cm/sec (mild | | | plaque) 2 Stenosis =31-50% PSV <125 cm/sec EDV | | | (cm/s)<40 cm/sec (moderate plaque) 3 Stenosis =50-69% | | | PSV >125 cm/sec EDV (cm/s)>40 cm/sec 4 Stenosis | | | =70-95% PSV >230 cm/sec EDV (cm/s)>100 cm/sec 5 | | | Stenosis =90-95% PSV <125 cm/sec EDV (cm/s)<40 cm/sec 6 | | | Stenosis Occluded | | + + + + + + | Narrative | Performed At | + + + | [facility] US CAROTID DOPPLER, BILATERAL 12/02/2013 12:17 PM | | | History: 57 years. Male. Syncope and dizziness. TECHNIQUE: | | | A pulse Doppler high-frequency duplex color flow transducer was | | | utilized. All velocity measurements are given in m/sec. Morrissey scale | | | images, spectral wave forms, velocity measurements and color flow maps | | | were analyzed. COMPARISON: 6- RIGHT COMMON CAROTID | | | BIFURCATION: Mild nodular echogenic plaque is visualized in the right | | | common carotid bifurcation, without flow-limiting stenosis. | | | Elevated peak systolic velocity is noted in the right external | | | carotid artery, without visible plaque or obvious stenosis. This | | | vessel showed normal velocity measurements on 07/08/13. Other | | | velocities are normal. Right Peak Systolic Velocities (cm/sec) | | | CCA-PROX: 94 CCA-DIST 110 ICA-PROX 106 | | | ICA-MID 103 ICA-DIST not measured. | | | ECA-PROX 237/18 Vertebral 56 LEFT COMMON | | | CAROTID BIFURCATION: Mild echogenic plaque is also noted in the left | | | common carotid bifurcation, unchanged. Elevated peak systolic | | | velocity is visualized in the proximal left external carotid artery, | | | without visible plaque. This velocity was normal on 07/08/13. All | | | other velocity measurements are normal. The left vertebral blood | | | flows antegrade. Left Peak Systolic Velocities (cm/sec) CCA-PROX | | | 151/21 CCA-DIST 104 ICA-PROX 65 ICA-MID | | | 80 ICA-DIST not measured. ECA-PROX | | | 193/15 Vertebral 57 | | + + + + + | Procedure Note | + + | Richard, Rad Conversion - 09/21/2018 3:31 PM PDT [facility] CAROTID DOPPLER, | | [id number]/27/2014 12:17 PM History: 57 years. Male. Syncope and dizziness. | | TECHNIQUE: A pulse Doppler high-frequency duplex color flow transducer was utilized. | | All velocity measurements are given in m/sec. Morrissey scale images, spectral wave forms, | | velocity measurements and color flow maps were analyzed. COMPARISON: 07-20 RIGHT COMMON | | CAROTID BIFURCATION:Mild nodular echogenic plaque is visualized in the right common | | carotid bifurcation, without flow-limiting stenosis. Elevated peak systolic velocity is | | noted in the right external carotid artery, without visible plaque or obvious stenosis. | | This vessel showed normal velocity measurements on 07/08/13. Other velocities are | | normal. Right Peak Systolic Velocities (cm/sec)CCA-PROX: 94CCA-DIST | | 110ICA-PROX 106ICA-MID 103ICA-DIST not measured.ECA-PROX | | 237/18Vertebral 56 LEFT COMMON CAROTID BIFURCATION:Mild echogenic plaque is | | also noted in the left common carotid bifurcation, unchanged. Elevated peak systolic | | velocity is visualized in the proximal left external carotid artery, without visible | | plaque. This velocity was normal on 07/08/13. All other velocity measurements are | | normal. The left vertebral blood flows antegrade. Left Peak Systolic Velocities | | (cm/sec)CCA-PROX 151/21CCA-DIST 104ICA-PROX 65ICA-MID | | 80ICA-DIST not measured.ECA-PROX 193/15Vertebral 57 | | IMPRESSION: 1. Mild atherosclerotic plaque in both common carotid bifurcations, without | | flow-limiting stenosis.2. Elevated peak systolic velocities in the right and left | | external carotid arteries appear to be physiologic rather than pathologic.3. Vertebral | | blood flow is antegrade bilaterally. Grades:1 Stenosis =01-30% PSV <125 cm/sec | | EDV (cm/s)<40 cm/sec (mild plaque)2 Stenosis =31-50% PSV <125 cm/sec EDV | | (cm/s)<40 cm/sec (moderate plaque)3 Stenosis =50-69% PSV >125 cm/sec EDV | | (cm/s)>40 cm/sec4 Stenosis =70-95% PSV >230 cm/sec EDV (cm/s)>100 cm/sec5 | | Stenosis =90-95% PSV <125 cm/sec EDV (cm/s)<40 cm/sec6 Stenosis | | Occluded | |velocity measurements are normal. The left vertebral blood flows antegrade. | | | |Left Peak Systolic Velocities (cm/sec) | |CCA-PROX 151/21 | |CCA-DIST 104 | |ICA-PROX 65 | |ICA-MID 80 | |ICA-DIST not measured. | |ECA-PROX 193/15 | |Vertebral 57 | | | | | |IMPRESSION: | |1. Mild atherosclerotic plaque in both common carotid bifurcations, without flow-limiting stenosis. | |2. Elevated peak systolic velocities in the right and left external carotid arteries appea r to be physiologic rather than pathologic. | |3. Vertebral blood flow is antegrade bilaterally. | | | | | |Grades: | |1 Stenosis =01-30% PSV <125 cm/sec EDV (cm/s)<40 cm/sec (mild plaque) | |2 Stenosis =31-50% PSV <125 cm/sec EDV (cm/s)<40 cm/sec (moderate plaque) | |3 Stenosis =50-69% PSV >125 cm/sec EDV (cm/s)>40 cm/sec | |4 Stenosis =70-95% PSV >230 cm/sec EDV (cm/s)>100 cm/sec | |5 Stenosis =90-95% PSV <125 cm/sec EDV (cm/s)<40 cm/sec | |6 Stenosis Occluded | | | | | + + POC Glucose (12/02/2013 12:08 PM PDT) + + + + + + | Component | Value | Ref Range | Performed | Pathologist | | | | | At | Signature | + + + + + + | Glucose, | 228 (H)Comment: Testing | 65 - 99 mg/dL | EXTERNAL | | | Fingerstick | performed at [facility];[address] | | LAB | | | | [address];[place] | | | | | | [address] | | | | + + + + + + + + | Specimen | + + | | + + + +---------+ + + | Performing | Address | City/State/Zipcode | Phone Number | | Organization | | | | + +---------+ + + | EXTERNAL LAB | | | | + +---------+ + + POC Glucose (12/02/2013 8:21 AM PDT) + + + + + + | Component | Value | Ref Range | Performed | Pathologist | | | | | At | Signature | + + + + + + | Glucose, | 298 (H)Comment: Testing | 65 - 99 mg/dL | EXTERNAL | | | Fingerstick | performed at [facility];[address] | | LAB | | | | [address];[place], [place] | | | | | | [address] | | | | + + + + + + + + | Specimen | + + | | + + + +---------+ + + | Performing | Address | City/State/Zipcode | Phone Number | | Organization | | | | + +---------+ + + | EXTERNAL LAB | | | | + +---------+ + + CT Head wo Contrast (12/02/2013 6:53 AM PDT) + + | Specimen | + + | | + + + + + | Impressions | Performed At | + + + | Generalized age-related cortical atrophic changes without evidence | | | of acute intracranial abnormality. [facility] Electronically | | | signed by Elsa Del Cid MD on Dec 02 2013 7:27AM Referring Provider | | | Line: [phone] ID: [id number] | | + + + + + + | Narrative | Performed At | + + + | EXAM: CT HEAD EXAM DATE: 12/02/2013 06:50 AM. CLINICAL | | | HISTORY: Vertigo/Dizziness. COMPARISON: None. TECHNIQUE: | | | Multiaxial CT images were obtained from the foramen magnum to the | | | vertex. IV contrast: None. Reformats: Coronal. FINDINGS: | | | Parenchyma: No intracranial hemorrhage. No evidence of mass, midline | | | shift or CT findings of acute infarction. Morrissey-white differentiation | | | is distinct. Extraaxial Spaces: Normal for age. No subdural or | | | epidural collections identified. Ventricles: The ventricles and | | | cortical sulci are enlarged, consistent with age-related tissue loss. | | | Sinuses: Imaged paranasal sinuses, orbits, and mastoids show no | | | significant abnormality. Bones: No evidence of fracture or | | | calvarial defect. Other: Diffuse chronic microangiopathic white | | | matter changes are evident. | | + + + + + | Procedure Note | + + | Joaquin Ramos Conversion - 09/21/2018 3:31 PM PDT EXAM:CT HEAD EXAM DATE: 12/02/2013 | | 06:50 AM. CLINICAL HISTORY: Vertigo/Dizziness. COMPARISON: None. TECHNIQUE: Multiaxial | | CT images were obtained from the foramen magnum to the vertex. IV contrast: None. | | Reformats: Coronal. FINDINGS:Parenchyma: No intracranial hemorrhage. No evidence of | | mass, midline shift or CT findings of acute infarction. Morrissey-white differentiation is | | distinct. Extraaxial Spaces: Normal for age. No subdural or epidural collections | | identified. Ventricles: The ventricles and cortical sulci are enlarged, consistent with | | age-related tissue loss. Sinuses: Imaged paranasal sinuses, orbits, and mastoids show no | | significant abnormality. Bones: No evidence of fracture or calvarial defect. Other: | | Diffuse chronic microangiopathic white matter changes are evident. IMPRESSION: | | Generalized age-related cortical atrophic changes without evidence of acute intracranial | | abnormality. [facility] Electronically signed by Elsa Del Cid MD on Dec 02 2013 7:27AM | | Referring Provider Line: [phone] ID: [id number] | | | |Extraaxial Spaces: Normal for age. No subdural or epidural collections identified. | | | |Ventricles: The ventricles and cortical sulci are enlarged, consistent with age-related tis negrito loss. | | | |Sinuses: Imaged paranasal sinuses, orbits, and mastoids show no significant abnormality. | | | |Bones: No evidence of fracture or calvarial defect. | | | |Other: Diffuse chronic microangiopathic white matter changes are evident. | | | |IMPRESSION: | |Generalized age-related cortical atrophic changes without evidence of acute intracranial ab normality. | | | |[facility] | | | | Electronically signed by Elsa Del Cid MD on Dec 02 2013 7:27AM Referring Provider Line: [phone] ID: [id number] | + + XR Chest 2 Vws (12/02/2013 6:18 AM PDT) + + | Specimen | + + | | + + + + + | Impressions | Performed At | + + + | FINDINGS/ IMPRESSION: Lungs are clear. Heart size is normal. | | | Upper mediastinal contours are normal. No pneumothorax, and no | | | pleural effusion. Degeneration of the thoracic spine. No acute | | | osseous abnormality. | | + + + + + + | Narrative | Performed At | + + + | [facility] 1955 57 years Male XR CHEST 2 VIEW FRONTAL | | | AND LATERAL 12/02/2013 6:18 AM INDICATION: Shortness of breath | | | COMPARISON: November 29, 2013 TECHNIQUE: Two view chest, PA and | | | lateral views | | + + + + + | Procedure Note | + + | Joaquin Ramos Conversion - 09/21/2018 3:31 PM PDT [facility] | | 1955 | | 57 years Male | | XR CHEST 2 VIEW FRONTAL AND LATERAL | | 12/02/2013 6:18 AM | | | | INDICATION: Shortness of breath | | | | COMPARISON: November 29, 2013 | | | | TECHNIQUE: Two view chest, PA and lateral views | | | | IMPRESSION: | | FINDINGS/ IMPRESSION: | | | | Lungs are clear. | | | | Heart size is normal. Upper mediastinal contours are normal. | | | | No pneumothorax, and no pleural effusion. | | | | Degeneration of the thoracic spine. | | | | No acute osseous abnormality. | | | | | | | + + Troponin I (12/02/2013 5:53 AM PDT) + + + + [...] | | | | | | ACUTE [place] Testing | | | | | | performed at [facility];[address] | | | | | | [address];[place] | | | | | | [address] | | | | + + + [...] + +---------+ + + External Lab: EVE (12/02/2013 5:53 AM PDT) + + + + + + | Component | Value | Ref Range | Performed | Pathologist | | | | | At | Signature | + + + + + + | WBC | 11.5 (H)Comment: Testing | 3.8 - 11.0 K/uL | EXTERNAL | | | | performed at [facility];[address] | | LAB | | | | [address];[place] | | | | | | [address] | | | | + + + + + + | Non- | 4.98Comment: Testing | 4.20 - 5.70 | EXTERNAL | | | Red Blood | performed at [facility];[address] | M/uL | LAB | | | Cells | [address];[place] | | | | | Counted | [id number] | | | | + + + + + + | Hemoglobin | 13.3Comment: Testing | 13.2 - 17.0 | EXTERNAL | | | | performed at [facility];[address] | g/dL | LAB | | | | [address];[place] | | | | | | [address] | | | | + + + + + + | Hematocrit, | 40.1Comment: Testing | 39.0 - 50.0 % | EXTERNAL | | | POC | performed at [facility];[address] | | LAB | | | | [address];[place] | | | | | | [address] | | | | + + + + + + | MCV | 80.6Comment: Testing | 80.0 - 100.0 fl | EXTERNAL | | | | performed at [facility];[address] | | LAB | | | | [address];[place] | | | | | | [address] | | | | + + + + + + | MCH | 26.6 (L)Comment: Testing | 27.0 - 34.0 pg | EXTERNAL | | | | performed at [facility];[address] | | LAB | | | | [address];[place] | | | | | | [address] | | | | + + + + + + | MCHC | 33.0Comment: Testing | 32.0 - 35.5 | EXTERNAL | | | | performed at [facility];[address] | g/dL | LAB | | | | [address];[place] | | | | | | [address] | | | | + + + + + + | RDW-CV | 41.6Comment: Testing | 37 - 53 fl | EXTERNAL | | | | performed at [facility];[address] | | LAB | | | | [address];[place] | | | | | | [address] | | | | + + + + + + | Platelet | 255Comment: Testing | 150 - 400 K/uL | EXTERNAL | | | Count | performed at [facility];[address] | | LAB | | | Plasma | [address];[place] | | | | | | [address] | | | | + + + + + + | MPV | 7.8Comment: Testing | fl | EXTERNAL | | | | performed at [facility];[address] | | LAB | | | | [address];[place] | | | | | | [address] | | | | + + + + + + | Differentia | AUTOMATEDComment: | | EXTERNAL | | | l Type | Testing performed at | | LAB | | | | [facility];[address];[place] [address] | | | | + + + + + + | % Segmented | 72.4Comment: Testing | % | EXTERNAL | | | | performed at [facility];[address] | | LAB | | | Neutrophils | [address];[place] | | | | | | [address] | | | | + + + + + + | % | 17.3Comment: Testing | % | EXTERNAL | | | Lymphocytes | performed at [facility];[address] | | LAB | | | | [address];[place] | | | | | | [address] | | | | + + + + + + | % Monocytes | 6.7Comment: Testing | % | EXTERNAL | | | | performed at [facility];[address] | | LAB | | | | [address];[place] | | | | | | [address] | | | | + + + + + + | % | 3.2Comment: Testing | % | EXTERNAL | | | Eosinophils | performed at [facility];[address] | | LAB | | | | [address];[place] | | | | | | [address] | | | | + + + + + + | % Basophils | 0.4Comment: Testing | % | EXTERNAL | | | | performed at [facility];[address] | | LAB | | | | [address];[place] | | | | | | [address] | | | | + + + + + + | Absolute | 8.3 (H)Comment: Testing | 1.9 - 7.4 K/uL | EXTERNAL | | | Segmented | performed at [facility];[address] | | LAB | | | Neutrophils | [address];[place] | | | | | | [address] | | | | + + + + + + | Absolute | 2.0Comment: Testing | 1.0 - 3.9 K/uL | EXTERNAL | | | Lymphocytes | performed at [facility];[address] | | LAB | | | | [address];[place] | | | | | | [address] | | | | + + + + + + | Absolute | 0.8Comment: Testing | 0 - 0.8 K/uL | EXTERNAL | | | Monocytes | performed at [facility];[address] | | LAB | | | | [address];[place] | | | | | | [address] | | | | + + + + + + | Absolute | 0.4Comment: Testing | 0 - 0.5 K/uL | EXTERNAL | | | Eosinophils | performed at [facility];[address] | | LAB | | | | [address];[place] | | | | | | [address] | | | | + + + + + + | Absolute | 0.0Comment: Testing | 0 - 0.1 K/uL | EXTERNAL | | | Basophils | performed at [facility] | | LAB | | | | [address];[place], [place] | | | | | | [address] | | | | + + + [...] +---------+ + + B Type Natriuretic Peptide (12/02/2013 5:53 AM PDT) + + + + + + | Component | Value | Ref Range | Performed | Pathologist | | | | | At | Signature | + + + + + + | BNP | 9.5Comment: Testing | 0 - 100 pg/mL | EXTERNAL | | | | performed at [facility];[address] | | LAB | | | | [address] [facility];[place], [place] | | | | | | [address] | | | | + + + [...] + +---------+ + + Basic Metabolic Panel (12/02/2013 5:53 AM PDT) + + + + + + | Component | Value | Ref Range | Performed | Pathologist | | | | | At | Signature | + + + + + + | Na | 140Comment: Testing | 135 - 143 | EXTERNAL | | | | performed at [facility];[address] | mmol/L | LAB | | | | [address];[place] | | | | | | [address] | | | | + + + + + + | K | 3.8Comment: Testing | 3.5 - 4.9 | EXTERNAL | | | | performed at [facility];[address] | mmol/L | LAB | | | | [address];[place] | | | | | | [address] | | | | + + + + + + | Cl | 104Comment: Testing | 99 - 109 mmol/L | EXTERNAL | | | | performed at [facility];[address] | | LAB | | | | [address];[place] | | | | | | [address] | | | | + + + + + + | CO2 | 32Comment: Testing | 23 - 32 mmol/L | EXTERNAL | | | | performed at [facility];[address] | | LAB | | | | [address];[place] | | | | | | [address] | | | | + + + + + + | Anion Gap | 9Comment: Testing | 5 - 20 mmol/L | EXTERNAL | | | | performed at [facility];[address] | | LAB | | | | [address];[place] | | | | | | [address] | | | | + + + + + + | Glucose, | 290 (H)Comment: Testing | 65 - 99 mg/dL | EXTERNAL | | | Fasting | performed at [facility];[address] | | LAB | | | | [address];[place] | | | | | | [address] | | | | + + + + + + | BUN | 14Comment: Testing | 8 - 25 mg/dL | EXTERNAL | | | | performed at [facility];[address] | | LAB | | | | [address];[place] | | | | | | [address] | | | | + + + + + + | Creatinine | 1.11Comment: Testing | 0.70 - 1.30 | EXTERNAL | | | | performed at [facility];[address] | mg/dL | LAB | | | | [address];[place] | | | | | | [address] | | | | + + + + + + | BUN/Creatin | 13Comment: Testing | | EXTERNAL | | | ine Ratio | performed at [facility];[address] | | LAB | | | | [address];[place] | | | | | | [address] | | | | + + + + + + | Calcium | 8.7Comment: Testing | 8.5 - 10.2 | EXTERNAL | | | | performed at [facility];[address] | mg/dL | LAB | | | | [address];[place] | | | | | | [address] | | | | + + + [...] | | | | | at [facility];[address] | | | | | | [address];[place] [address] | | | | + + + [...] + +---------+ + + ECG 12 lead (12/02/2013 5:46 AM PDT) + + + + [...] -NOV-2013 | | | | | | 15:22,Premature atrial | | | | | | [...] | | | | | | on 12/02/2013 6:24:18 | | | | | | AM | | | | + + + + + + + + | Specimen | + + | | + + + + + | Narrative | Performed At | + + + | Historically converted procedure from [facility] environment | EXTERNAL LAB | + + + + +---------+ + + | Performing | Address | City/State/Zipcode | Phone Number | | Organization | | | | + +---------+ + + | EXTERNAL LAB | | | | + +---------+ + + Urinalysis, Microscopic Only (12/02/2013 5:45 AM PDT) + + + + + + | Component | Value | Ref Range | Performed | Pathologist | | | | | At | Signature | + + + + + + | JULIOCESAR DUONG | 1-5Comment: Testing | 0 - 5 /hpf | EXTERNAL | | | | performed at [facility];[address] | | LAB | | | | [address];[place] | | | | | | [address] | | | | + + + + + + | RBCJULIOCESAR | 1-5Comment: Testing | 0 - 2 /hpf | EXTERNAL | | | | performed at [facility];[address] | | LAB | | | | [address];[place] | | | | | | [address] | | | | + + + + + + | Epithelial | 1-5Comment: Testing | /lpf | EXTERNAL | | | Cells | performed at [facility];[address] | | LAB | | | | [address];[place] | | | | | | [address] | | | | + + + + + + | Bacteria, | 1+ (A)Comment: Testing | | EXTERNAL | | | UA | performed at [facility];[address] | | LAB | | | | [address];[place], [place] | | | | | | [address] | | | | + + + [...] Dizziness and giddiness | + + | Hypoxia Hypoxemia | + + | Somnolence Other alteration of consciousness | + + | Diabetes mellitus, type 2 (HCC) Type II or unspecified type diabetes mellitus without | | mention of complication, not stated as uncontrolled | + + | Fall at home, subsequent encounter | + + documented in this encounter
--- OUTSIDE RECORDS SUMMARY | ~2019-10-12 | XMS | Encounter Summary ---
Demographics + + + | Address | [address] | | | [place] [address] | + + + | Home Phone [...] Sammi Kohler | ECON | [place] [address] | | + + + + + Care Team Providers + +------+ + | Care Ekg Tech Name | Role | Phone | + +------+ + | Mireya Pack NP | PCP | | + +------+ + Reason for Visit + +--------+ + | Reason | Onset | Comments | | | Date | | + +--------+ + | TCM - Hosp FU | 12/14/ | | | | 2018 | | + +--------+ + Encounter Details +--------+ + + + + | Date | Type | Department | Care Team | Description | +--------+ + + + + | 12/14/ | Telephone | [facility] | Sanjuanita Rodriguez RN | TCM - Hosp FU | | 2019 | | [facility] [employer] | | | | | | [address] | | | | [address] | | | | | | [place] | | | | | | [address] | | | | | | [phone] | | | +--------+ + + + [...] Acute Hospital Eligible for TCM Billing LOS [id number]? yes - Eligible for TCM billing through [...] to Medication Literacy: Were you able to pecan picker your medications after discharge? No: NA Reviewed [...] up needs. Provided office contact information, phone [phone] Of behaview hours [phone] - 1500. Informant verbalized understanding. No learning barriers noted. documented in this enc ounter Plan of Treatment +--------+ + + + + | Date | Type | Specialty | Care Team | Description | +--------+ + + + + | 10/16/ | Anti-coag | Anticoagulation | Rhawn, Brittany | | | 2020 | visit | | Risa, DRAPERY SUPERVISOR [address] | | | | | | [place], | | | | | | [place] [address] | | | | | | [phone] | | | | | | | | +--------+ + + + + documented as of this encounter Visit Diagnoses Not on filedocumented in this encounter
--- OUTSIDE RECORDS SUMMARY | ~2019-10-12 | XMS | Encounter Summary ---
Demographics + + + | Address | [address] | | | [place] [address] | + + + | Home Phone [...] + | Sammi Kohler | ECON | [place] [address] | | + + + + + Care Team Providers + +------+ + | Care Tape Making Machine Operator Name | Role | Phone | + +------+ + PCP | Unavailable | + +------+ + Encounter Details +--------+ + + + + | Date | Type | Department | Care Team | Description | +--------+ + + + + | 11/26/ | Emergency | [facility] | Ashu Bobo | Recurrent vertigo | | 2013 | | [facility] | [facility] [place] [address] | | | | | EMERGENCY CENTER | [address] [place], [place] | | | | | [address] [facility] | [address] | | | | | [place], [place] | [phone] | | | | | [address] | | | | | | [phone] | | | +--------+ + + + [...] Progress Notes Conversion Transaction, Provider Unknown - 11/26/2013 6:03 PM PDTFormatting of this note m ight be different from the original. Case Management by QUINN Richardson at 11/26/131802 Author: QUINN Richardson Service: (none) Author Type: Assistant Dean Of Students Filed: 11/26/131804 Date of Service: 11/26/131802 Status: Signed Gas Compressor Turbine Operator: QUINN Richardson (Assistant Dean Of Students) ED CARE GUIDELINES FROM [facility] CONSISTENT CARE PROGRAM: 33 ED VISITS (1 YR.) Care Recommendation: Kevyn has a printed Crisis Plan at the Assisted Living Facility that he is to follow before coming to the ED for non life-threatening issues. Please discuss with Kevyn when he present s to the ED. The following guidelines were formulated by the ED Care Guidelines Committee of the [facility] Consistent Care Program on May 21, 2013. No controlled substances should be administered in the ED or prescribed from the ED for sub jective pain. Past Medical & Surgical History: Primary Care Provider (PCP) is Dr. Gutiérrez at . Notify PCP if giving any a dditional narcotics for objective findings. PCP supports enrollment in the [facility] nt Care Program. Medical History: 1. Diabetes-He is on a sliding scale after meals, routine insulin before meals and takes La ntus at night. A1C April, = 7.9%. He was referred to an cognos consultant in February, 4. 2. COPD- He take [...] the GE junction (requiring managem ent in [place] at ), rectal ulcer and internal hemorrhoids. 9. Hernia- He has been referred to Dr. Vargas. Problem List: He needs to make regular visits to see his PCP in light of his chronic conditions. He estab lished in February, but he never returned as requested. This patient is developmentally delayed and has multiple chronic conditions and providers. He would benefit from having a Technical Analyst assist him in coordinating his care. History of Behavioral Health Conditions: He has depression and anxiety- This is managed by his PCP. He takes Paxil and abilify. He has been referred to [facility] in February. According to [facility], he never establish ed care. Please follow-up with him and assist him in making another appointment to establish care. Pain/Opioid Agreement: Kevyn has an order at the [facility] for hydrocodone as needed. He does not h ave a diagnosis of chronic pain. Please see [facility] TE[facility] DRA[facility]ER for prescribing history. Social History or Identified Risk: - Fall Risk - Non adherence - Transportation Issues Social History: Kevyn lives at [facility] . He may require another level of care given the number of ED visits at enrollment (22 in the last year)-please contact his [facility] Ca se Trade Embalmer (Fermin Preston) to discuss. Kevyn is developmentally delayed- Patient may benefit from having someone with him at his d octor's appointments. He has applied for D[employer]ide services (April,) Applied for a Health Home for this client through [facility]- please review Provider One to determ ine if one has been assigned. Additional Information: This patient is case managed by the [facility] Consistent Care Program. Please contact the email marketing manager at your hospital for any immediate or [...] encounter ED Notes Ashu Bobo MD - 11/26/2013 6:14 PM PDT ED Provider Notes by Ashu Bobo MD at 11/26/131813 Author: Ashu Bobo MD Service: (none) Author Type: Physician Filed: 11/26/131827 Date of Service: 10/21/14 1814 Status: Signed Gas Compressor Turbine Operator: Ashu Bobo MD (Physician) Procedures Additional Documentation Procedures [facility] Department of Emergency Medicine History of Present Illness Patient Identification Kevyn Guzman is a 57 y.o. male. Patient information was obtained from patient and EMS personnel. History/Exam limitations: none. Patient presented to the Emergency Department by: Sontag Alexy 182 Chief Complaint Chief Complaint Patient presents with Dizziness pt reports being seen for same symptoms a couple days ago and was told to follow up with PCP who is unavailable until monday. pt reports "spinning" episodes and "back pain and heada kylee." The patient complains of dizziness. Onset of symptoms was a few days ago (this time), with a(n) intermittent course since that time. The symptoms are described to be of mild severity . The quality of the symptoms are describes as the following: "room spinning". Medicine giv en at time of last ED visit has been noted to improve symptoms. Closing eyes has been noted to improve symptoms. The patient has also had the following associated symptoms: chronic back pain, chronic recu rrent headache, chronic high blood pressure. Pt denies: Fever, chest pain today, trouble breathing, trouble walking, trouble speaking o r swallowing. Care prior to arrival today consisted of EMS transport, with no spontaneous relief. Additional information related to this complaint is the following: Pt seen for this here in ED yesterday and had extensive (repeat) workup at that time and was discharged with carmencita morales. The pt does not think he has taken his medications today as prescribed by the ED. Recent URI/viral infection?: yes The patient s baseline neurologic status is the following: Low-functioning, lives in grou p home, history of developmental handicap. PCP: JERRELL GUTIÉRREZ Past Medical History Diagnosis [...] into the skin nightly. H istorical Provider qfykpuyew-pugefjim-oqkjmwjoa hydroxide-simethicone Take 40 mLs by mouth daily [...] Negative for: chest pain, shortness of breath, cough, palpitati ons Gastrointestinal: Negative for: abdominal pain, vomiting, diarrhea, black or bloody stools Genitourinary: Negative for: dysuria, hematuria, urinary problems Musculoskeletal: Negative for: joint pain Skin: Negative for: rash Neuro and psych: Negative for: fainting, else as above Endocrine/Heme/Lymph: Negative for: swollen lymph nodes All other review of systems negative except as mentioned. Physical Exam BP 159/81 | Pulse 101 | Temp(Src) 98.5 F (36.9 C) (Oral) | Resp 16 | SpO2 94% Pulse Oximetry interpretation: Normal VS: Hyperdynamic, else normal. General: Alert, in no apparent distress Eyes: Normal inspection, pupils equal and round, non-icteric, no nystagmus. No facial alexandra op. ENT: Ears normal Nose normal Neck: Normal inspection Supple, no JVD No lymphadenopathy No meningismus Cardiovascular: Normal rate, rhythm. No murmur appreciated. Respiratory: Normal lung sounds. No rales, rhonchi, or wheezing. Abdomen: Soft, non-tender, non-distended No guarding or rebound Back: Normal inspection Extremities: No edema or tenderness Skin: Color normal Warm and dry No rash Neuro: CN II-XII intact. No motor deficit No sensory deficit Medical Decision Making and Emergency Department Course ED Department Course Normal exam. Benign VS. Pt seen for this yesterday and had workup in ED. Discharged with meclizine but didn't take it. Will provide meclizine. No additional interventions recomme nded today. Pt will follow up with PCP. Records Reviewed Old medical records. Many prior ED visits noted. I have also noted and reviewed the patie nt care plan in the EMR. Laboratory Evaluation Labs Reviewed - No data to display Radiology and EKG Evaluation Imaging Results None ED Diagnosis Final diagnosis Recurrent vertigo Disposition: ED Disposition Orders Discharge Condition at discharge: Stable Follow-up Information Follow up With Details Comments Contact Info Jerrell Gutiérrez DO Schedule an appointment as soon as possible for a visit [address] [place] [phone] Discharge Medications: New Prescriptions No new medications Ashu Bobo MD 11/26/131827 onversion Transdarcy ledesma, Provider Unknown - 11/26/2013 6:12 PM PDT ED Notes by Gilberto Plunkett RN at 11/26/131811 Author: Gilberto Plunkett RN Service: (none) Author Type: Registered Nurse Filed: 11/26/131811 Date of Service: 11/26/131811 Status: Signed Gas Compressor Turbine Operator: Gilberto Plunkett RN (Registered Nurse) Bed: 1107 Expected date: [...] [address] | | | | | | [place], | | | | | | [place] [address] | | | | | | [phone] | | | | | | | | +--------+ + + + + documented as of this encounter Visit Diagnoses + + | Diagnosis | + + | Recurrent vertigo | + + documented in this encounter
--- OUTSIDE RECORDS SUMMARY | ~2019-10-12 | XMS | Encounter Summary ---
Demographics + + + | Address | [address] | | | [place] [address] | + + + | Home Phone [...] + | Author | [facility] | | | and [place] | + [...] | Sammi Kohler | ECON | [place] [address] | | + + + + + Care Team Providers + +------+ + | Care Insurance Verification Clerk Name | Role | Phone | [...] + + | 11/13/ | Telephone | [facility] | Mireya Pack, | Triage (Rectal | | 2019 | | [facility] | [facility] [address] | Bleeding) | | | | [address] | [address] [place], | | | | | [place], [place] | [place] [address] | | | | | [address] | [phone] | | | | | [phone] | | | +--------+ + + + [...] | | | | | | [place] [address] | | | | | | [phone] | | | | | | | | +--------+ + + + + documented as of this encounter Visit Diagnoses Not on filedocumented in this encounter
--- OUTSIDE RECORDS SUMMARY | ~2019-10-12 | XMS | Encounter Summary ---
Demographics + + + | Address | [address] | | | [place] [address] | + + + | Home Phone [...] + | Sammi Kohler | ECON | [place] [address] | | + + + + + Care Team Providers + +------+ + | Care Burring Machine Operator Name | Role | Phone | + +------+ + PCP | Unavailable | + +------+ + Encounter Details +--------+ + + + + | Date | Type | Department | Care Team | Description | +--------+ + + + + | 10/08/ | Hospital | [facility] | Conversion | Unspecified | | 2014 | Encounter | [facility] | Transaction, | hyperplasia of | | | | ULTRASOUND [address] | Provider Unknown | prostate without | | | | [address] | [phone] | urinary obstruction | | | | [place], [place] | | and other lower | | | | [address] | | urinary tract | | | | [phone] | | symptoms (LUTS); | | | [...] [place], | | | | | | [place] [address] | | | | | | [phone] | | | | | | | [...]
--- OUTSIDE RECORDS SUMMARY | ~2019-10-12 | XMS | Encounter Summary ---
Demographics + + + | Address | [address] | | | [place] [address] | + + + | Home Phone [...] + | Sammi Kohler | ECON | [place] [address] | | + + + + + Care Team Providers + +------+ + | Care Revenue Officer Name | Role | Phone | + +------+ + PCP | Unavailable | + +------+ + Encounter Details +--------+ + + + + | Date | Type | Department | Care Team | Description | +--------+ + + + + | 11/11/ | Emergency | [facility] | Zach Tena, | Hypertension | | 2013 | | [facility] [place] | MD Darrick MAHER | | | | | EMERGENCY CENTER | [place] [address] | | | | | [address] | [phone] | | | | | [place], [place] | | | | | | [address] | | | | | | [phone] | | | +--------+ + + + [...] Author: QUINN Lea Service: (none) Author Type: Technical Business Analyst Filed: 11/11/13 1129 Date of Service: 11/11/131127 Status: Signed Form Press Operator: QUINN Lea (Technical Business Analyst) CM contacted pt's [facility]. They will transport from the ED lobby back to [facility]. Starla Lewis docume nted in this encounter ED Notes Conversion Transaction, Provider Unknown - 11/11/2013 11:39 AM PDTFormatting of this note m ight be different from the original. ED Notes by Yojana Richardson RN at 11/11/13 1139 Author: Yojana Richardson RN Service: (none) Author Type: Registered Nurse Filed: 11/11/13 1140 Date of Service: 11/11/131138 Status: Signed Form Press Operator: Yojana Richardson RN (Registered Nurse) Pt ready for discharge, waiting for facility to pickup Yojana Richardson RN 11/11/13 1140 Zach Smyth MD - 11/11/2013 8:41 AM PDTFormatting of this note might be different from the o riginal. ED Provider Notes by Zach Tena MD at 11/11/13 0841 Author: Zach Tena MD Service: (none) Author Type: Physician Filed: 11/15/13 1431 Date of Service: 11/11/13840 Status: Signed Form Press Operator: Zach Tena MD (Physician) [facility] Department of Emergency Medicine 8:50 AM History of Present Illness Patient Identification Kevyn Guzman is a 57 y.o. male. Patient information was obtained from patient. History/Exam limitations: none. Patient presented to the Emergency Department by: [facility] Chief Complaint Chief Complaint Patient [...] Pt states that his nurse at the [facility] said his BP was too high, and was sent to the ED. Pt's BP was 199/95 at 5:00 AM. The pt takes Clonidine, Rhodanine, and Lisinopril administered to him daily at [facility] Positive associated with: Leg swelling, intermittent [...] CHOLECYSTECTOMY; Surgeon: Jevon Vargas DO; Location: [facility] MAIN OR; Service: General; Laterality: N/A; Abdominal surgery Cholecystectomy Skin cancer excision 10/10/2012 Procedure: EXCISION - SKIN CANCER; Surgeon: Sy Fierro MD; Location: [facility] MAIN OR ; Service: Plastics; Laterality: Left; upper arm and upper back w/frozen section Esophagogastroduodenoscopy 03/03/2013 Procedure: ESOPHAGOGASTRODUODENOSCOPY; Surgeon: Howie Gibson MD; Location: [facility] ENDOSCOPY; S ervice: Gastroenterology; Laterality: N/A; Colonoscopy 03/04/2013 Procedure: COLONOSCOPY; Surgeon: Howie Gibson MD; Location: [facility] ENDOSCOPY; Service: Gastroe nterology; Laterality: N/A; Upper gastrointestinal endoscopy Skin biopsy Hernia repair 07/03/2013 Procedure: LAPAROSCOPIC - HERNIA - INCISIONAL; Surgeon: Jevon Vargas DO; Location: [facility] MAIN OR; Service: General; Laterality: N/A; [...] into the skin nightly. H istorical Provider pqcitkzgs-auytmunc-wtikoniax hydroxide-simethicone Take 40 mLs by mouth daily [...] Value Ref Range Date/Time Comprehensive metabolic panel [[id number]] (Abnormal) Collected: 11/11/13921 Order Status: Completed Updated: [...] 65 U/L EGFR >60 >60 mL/min/1.73m2 Protime [[id number]] Collected: 11/11/13921 Order Status: Completed Updated: 11/11/13940 Specimen Information: Blood INR 1.0 CBC with differential [[id number]] (Abnormal) Collected: 11/11/13921 Order Status: Completed Updated: [...] Contact Info Jerrell Gross Jean-Claudesidney, DO In 3 days or as needed [address] [facility] [address] [facility] Emergency Department If symptoms worsen [address] [facility] [address] Discharge Medications: New Prescriptions No new medications Procedures Additional Documentation Procedures Attending Note: Documentation assistance provided by Wu Linda (Scribe). Information recorded by the scribe has been reviewed and validated by me. Camilla laughlin with its contents. MD Zach Randle MD 11/15/13 1431 onversion Transactcamilla mabry, Provider Unknown - 11/11/2013 8:39 AM PDTFormatting of this note might be different fro m the original. ED Notes by Itzel Huggins RN at 11/11/13838 Author: Itzel Huggins RN Service: (none) Author Type: Registered Nurse Filed: 11/11/13838 Date of Service: 11/11/13838 Status: Signed Form Press Operator: Itzel Huggins RN (Registered Nurse) Bed: 17 [...] | | | | | | [place] [address] | | | | | | [phone] | | | | | | | [...] + + documented in this encounter Results Hayime INR (11/11/2013 9:22 AM PDT) + + [...] | | | | | performed at [facility] | | | | | | [address];[place], [place] | | | | | | [address] | | | | + + [...] | performed at [facility] | | LAB | | | | [address];[place], [place] | | | | | | [address] | | | | + + + + + + | Non- | 4.93Comment: Testing | 4.20 - 5.70 | EXTERNAL | | | Red Blood | performed at [facility];[address] | M/uL | LAB | | | Cells | [address];[place] | | | | | Counted | [address] | | | | + + + + + + | Hemoglobin | 13.2Comment: Testing | 13.2 - 17.0 | EXTERNAL | | | | performed at [facility];[address] | g/dL | LAB | | | | [address];[place] | | | | | | [address] | | | | + + + + + + | Hematocrit, | 39.4Comment: Testing | 39.0 - 50.0 % | EXTERNAL | | | POC | performed at [facility];[address] | | LAB | | | | [address];[place] | | | | | | [address] | | | | + + + + + + | MCV | 79.9 (L)Comment: Testing | 80.0 - 100.0 fl | EXTERNAL | | | | performed at [facility];[address] | | LAB | | | | [address];[place] | | | | | | [address] | | | | + + + + + + | MCH | 26.8 (L)Comment: Testing | 27.0 - 34.0 pg | EXTERNAL | | | | performed at [facility];[address] | | LAB | | | | [address];[place] | | | | | | [address] | | | | + + + + + + | MCHC | 33.5Comment: Testing | 32.0 - 35.5 | EXTERNAL | | | | performed at [facility];[address] | g/dL | LAB | | | | [address];[place] | | | | | | [address] | | | | + + + + + + | RDW-CV | 42.0Comment: Testing | 37 - 53 fl | EXTERNAL | | | | performed at [facility];[address] | | LAB | | | | [address];[place] | | | | | | [address] | | | | + + + + + + | Platelet | 255Comment: Testing | 150 - 400 K/uL | EXTERNAL | | | Count | performed at [facility];[address] | | LAB | | | Plasma | [address];[place] | | | | | | [address] | | | | + + + + + + | MPV | 7.6Comment: Testing | fl | EXTERNAL | | | | performed at [facility];[address] | | LAB | | | | [address];[place] | | | | | | [address] | | | | + + + + + + | Differentia | AUTOMATEDComment: | | EXTERNAL | | | l Type | Testing performed at | | LAB | | | | [facility];[address];[place] [address] | | | | + + + + + + | % Segmented | 50.8Comment: Testing | % | EXTERNAL | | | | performed at [facility];[address] | | LAB | | | Neutrophils | [address];[place] | | | | | | [address] | | | | + + + + + + | % | 32.9Comment: Testing | % | EXTERNAL | | | Lymphocytes | performed at [facility];[address] | | LAB | | | | [address];[place] | | | | | | [address] | | | | + + + + + + | % Monocytes | 10.4Comment: Testing | % | EXTERNAL | | | | performed at [facility];[address] | | LAB | | | | [address];[place] | | | | | | [address] | | | | + + + + + + | % | 4.8Comment: Testing | % | EXTERNAL | | | Eosinophils | performed at [facility];[address] | | LAB | | | | [address];[place] | | | | | | [address] | | | | + + + + + + | % Basophils | 1.1Comment: Testing | % | EXTERNAL | | | | performed at [facility];[address] | | LAB | | | | [address];[place] | | | | | | [address] | | | | + + + + + + | Absolute | 4.1Comment: Testing | 1.9 - 7.4 K/uL | EXTERNAL | | | Segmented | performed at [facility];[address] | | LAB | | | Neutrophils | [address];[place] | | | | | | [address] | | | | + + + + + + | Absolute | 2.6Comment: Testing | 1.0 - 3.9 K/uL | EXTERNAL | | | Lymphocytes | performed at [facility];[address] | | LAB | | | | [address];[place] | | | | | | [address] | | | | + + + + + + | Absolute | 0.8Comment: Testing | 0 - 0.8 K/uL | EXTERNAL | | | Monocytes | performed at [facility];[address] | | LAB | | | | [address];[place] | | | | | | [address] | | | | + + + + + + | Absolute | 0.4Comment: Testing | 0 - 0.5 K/uL | EXTERNAL | | | Eosinophils | performed at [facility];[address] | | LAB | | | | [address];[place] | | | | | | [address] | | | | + + + + + + | Absolute | 0.1Comment: Testing | 0 - 0.1 K/uL | EXTERNAL | | | Basophils | performed at [facility];[address] | | LAB | | | | [address];[place] | | | | | | [address] | | | | + + + [...] | LAB | | | | [address];[place] | | | | | | [address] | | | | + + + + + + | K | 3.7Comment: Testing | 3.5 - 4.9 | EXTERNAL | | | | performed at [facility];[address] | mmol/L | LAB | | | | [address];[place] | | | | | | [address] | | | | + + + + + + | Cl | 105Comment: Testing | 99 - 109 mmol/L | EXTERNAL | | | | performed at [facility];[address] | | LAB | | | | [address];[place] | | | | | | [address] | | | | + + + + + + | CO2 | 30Comment: Testing | 23 - 32 mmol/L | EXTERNAL | | | | performed at [facility];[address] | | LAB | | | | [address];[place] | | | | | | [address] | | | | + + + + + + | Anion Gap | 8Comment: Testing | 5 - 20 mmol/L | EXTERNAL | | | | performed at [facility];[address] | | LAB | | | | [address];[place] | | | | | | [address] | | | | + + + + + + | Glucose, | 229 (H)Comment: Testing | 65 - 99 mg/dL | EXTERNAL | | | Fasting | performed at [facility];[address] | | LAB | | | | [address];[place] | | | | | | [address] | | | | + + + + + + | BUN | 15Comment: Testing | 8 - 25 mg/dL | EXTERNAL | | | | performed at [facility];[address] | | LAB | | | | [address];[place] | | | | | | [address] | | | | + + + + + + | Creatinine | 1.10Comment: Testing | 0.70 - 1.30 | EXTERNAL | | | | performed at [facility];[address] | mg/dL | LAB | | | | [address];[place] | | | | | | [address] | | | | + + + + + + | BUN/Creatin | 14Comment: Testing | | EXTERNAL | | | ine Ratio | performed at [facility];[address] | | LAB | | | | [address];[place] | | | | | | [address] | | | | + + + + + + | Calcium | 8.8Comment: Testing | 8.5 - 10.2 | EXTERNAL | | | | performed at [facility];[address] | mg/dL | LAB | | | | [address] | | | | | | [address] | | | | + + + + + + | Protein, | 7.1Comment: Testing | 6.3 - 8.2 g/dL | EXTERNAL | | | Total | performed at [facility];[address] | | LAB | | | | [address];[place] | | | | | | [address] | | | | + + + + + + | Albumin | 3.2 (L)Comment: Testing | 3.6 - 5.0 g/dL | EXTERNAL | | | | performed at [facility];[address] | | LAB | | | | [address];[place] | | | | | | [address] | | | | + + + + + + | Globulin | 3.9Comment: Testing | 1.3 - 4.9 g/dL | EXTERNAL | | | | performed at [facility];[address] | | LAB | | | | [address];[place] | | | | | | [address] | | | | + + + + + + | A/G Ratio | 0.8 (L)Comment: Testing | 1.0 - 2.4 | EXTERNAL | | | | performed at [facility];[address] | | LAB | | | | [address];[place] | | | | | | [address] | | | | + + + + + + | Bilirubin | 0.3Comment: Testing | 0.1 - 1.5 mg/dL | EXTERNAL | | | Total | performed at [facility];[address] | | LAB | | | | [address];[place] | | | | | | [address] | | | | + + + + + + | ALP, | 112Comment: Testing | 35 - 115 U/L | EXTERNAL | | | External | performed at [facility];[address] | | LAB | | | | [address];[place] | | | | | | [address] | | | | + + + + + + | AST | 24Comment: Testing | 10 - 45 U/L | EXTERNAL | | | | performed at [facility];[address] | | LAB | | | | [address];[place] | | | | | | [address] | | | | + + + + + + | ALT | 23Comment: Testing | 10 - 65 U/L | EXTERNAL | | | | performed at [facility];[address] | | LAB | | | | [address];[place], [place] | | | | | | [address] | | | | + + + [...] | | at [facility];[address] [place] [address] | | | | | | Blvd;[place] [address] | | | | + + + [...] (500), | | | | | | material expeditor ZAYNAB HUNT | | | | | | (4) on 11/11/2013 | | | | | | 11:28:19 AM | | | | + + + + + + + + | Specimen | + + | | + + + + + | Narrative | Performed At | + + + | [facility] | EXTERNAL LAB | + + [...]
--- OUTSIDE RECORDS SUMMARY | ~2019-10-12 | XMS | Encounter Summary ---
Demographics + + + | Address | [address] | | | [place] [address] | + + + | Home Phone [...] Sammi Kohler | ECON | [place] [address] | | + + + + + Care Team Providers + +------+ + | Care Certified Alcohol Drug Counselor Name | Role | Phone | + +------+ + | Holly Pack NP | PCP | | + +------+ + Reason for Visit + + + | Reason | Comments | + + + | Hypertension | | + + + | Urinary Complaint | | + + + Encounter Details +--------+ + + + + | Date | Type | Department | Care Team | Description | +--------+ + + + + | 07/05/ | Emergency | [facility] | Breanne Hurtado, | Hypertension, | | 2019 | | MEDICAL CENTER | DO [address] | unspecified type | | | | EMERGENCY CENTER | [place] [address] | (Primary Dx); | | | | [address] | [phone] | Difficulty obtaining | | | | [place], [place] | | medication; Fall, | | | | [address] | Zach Tena MD | initial encounter | | | | [phone] | [address] | | | | | | [place] [address] | | | | | | [phone] | | | | | | | [...] + + + | Blood Pressure | 230/92 | 07/06/2019 10:02 AM | | | | | PDT | | + + + + + | Pulse | 79 | 07/06/2019 10:02 AM | | | | | PDT | | + + + + + | Temperature | 36.6 C (97.8 F) | 07/06/2019 5:29 AM | | | | | PDT | | + + + + + | Respiratory Rate | 18 | 07/06/2019 5:29 AM | | | | | PDT | | + + + + + | Oxygen Saturation | 97% | 07/06/2019 7:02 AM | | | | | PDT [...] through Care Everywhere.High Blood Pres sure, Controlling (Russian)Falls, Preventing, Staying Active (Russian)documented in this enc ounter Medications at Time [...] | | | | use of insulin ([facility]) | | | | | | + [...] + + | carvedilol (COREG) | Take 2 tablets by | 28 | 0 | 07/06/19 | | | 6.25 mg tablet | mouth 2 times daily | tablet | | 20 | 0 | | | for 7 days. | | | | | + [...] hydrALAZINE | Take 1 tablet by | 14 | 0 | 07/06/19 | | | (APRESOLINE) 25 mg | mouth 2 times daily | tablet | | 20 | 0 | | tablet | for 7 days. | | | | | + [...] (ADALAT | Take 1 tablet by | 7 | 0 | 07/06/19 | | | CC) 60 MG 24 hr | mouth Daily for 7 | tablet | | 20 | 0 | | tablet | days. | | [...] documented as of this encounter ED Notes Brynn Frazier RN - 07/06/2019 11:57 AM Alannah RN observes patient yelling at staff and be coming agitated. Patient slams sliding door, security to bedside. Emili Gonzalez RN - 07/06/2019 11:23 AM PDTP t waiting for scripts to be filled, becoming increasingly impatient with staff. Explained to pt multiple times we are trying to assist him with filling medications and then will call nadege macias for ride home. Pt stating we are not doing this fast enough Vannessa Arzola Technolog[employer] t - 07/06/2019 7:26 AM PDTEDT wore face mask while in patient's room Zach Smyth MD - 6:01 AM PDT [facility] Department of Emergency Medicine Diagnosis: 1. Hypertension, unspecified type 2. Difficulty obtaining medication 3. Fall, initial encounter Final Impression: 1. Hypertension, unspecified type 2. Difficulty obtaining medication 3. Fall, initial encounter Follow-up Information Holly Pack NP. Schedule an appointment as soon as possible for a visit in 1 week. Specialty: Nurse Practitioner - Primary Care Contact information: [address] [place] [facility] [id number] Go to [facility]. Specialty: Emergency Medicine Why: If symptoms worsen Contact information: [address] [facility] [address] Discharge Medication List as of 07/06/2019 12:08 PM History of Present Illness Norah Gr is a 63 y.o. male PCP:Holly Pack NP Chief Complaint: Chief Complaint Patient presents with Hypertension Urinary Complaint 6:02 AM Norah Gr is a 63 y.o. male who presents to the Emergency Department with complaints of w eakness. Onset of symptoms was two days ago, with a worsening course since that time. The pa tient describes these symptoms as generalized weakness. The patient reports nothing worsens symptoms, and nothing relieves symptoms. Patient additionally describes increase in falls as sociated, urinary frequency, and urinary urgency with primary complaint. Patient reports mykel t he was admitted three days ago for sepsis due to a bladder infection "checked himself out" two days ago. He states since he left the hospital, he has had two falls and is increasingl y feeling weak. He states he continues to have urinary frequency and urgency. Patient denies any other symptoms at this time. Patient reports that he lives in an apartment and has a nu rse that checks in once a week. Past Medical and Surgical History Past Medical History: Diagnosis Date Acute pulmonary embolism (HCC) 10/14/2017 Anxiety ARF (acute renal failure) (HCC) 03/02/2013 Atrial fibrillation (HCC) Basal cell carcinoma 09/26/2012 arm and back COPD (chronic obstructive pulmonary disease) ([facility]) 03/02/2013 hypoxemia on 2 lts nc Depression Development delay Diabetes mellitus type II DVT (deep venous thrombosis) ([facility]) 03/29/2018 Facial droop 07/08/2013 GIB (gastrointestinal bleeding) [...] - CHOLECYSTECTOMY; Surgeon: Jevon Vargas DO; Location: [facility] MAIN OR; Service: General; Laterality: N/A; COLONOSCOPY COLONOSCOPY 03/04/2013 Procedure: COLONOSCOPY; Surgeon: Howie Gibson MD; Location: [facility] ENDOSCOPY; Service: Gastroen terology; Laterality: N/A; HERNIA REPAIR 07/03/2013 Procedure: LAPAROSCOPIC - HERNIA - INCISIONAL; Surgeon: Jevon Vargas DO; Location: [facility] MA[facility] OR; Service: General; Laterality: N/A; KNEE SURGERY rt knee, patella LEG SURGERY LLE OTHER SURGICAL HISTORY UNLISTED PROCEDURE ARTHROSCOPY OTHER SURGICAL HISTORY Left 05/05/2014 SKIN LESION EXCISION - Procedure: EXCISION - LESION - FROZEN SECTION; Surgeon: Sy murcia MD; Location: [facility] OR; Service: Plastics; Laterality: Left; forearm SKIN BIOPSY SKIN CANCER EXCISION Left 10/10/2012 Procedure: EXCISION - SKIN CANCER; Surgeon: Sy Fierro MD; Location: [facility] OR; Service: Plastics; Laterality: Left; upper arm and upper back w/frozen section UPPER GASTROINTESTINAL ENDOSCOPY UPPER GASTROINTESTINAL ENDOSCOPY 03/03/2013 Procedure: ESOPHAGOGASTRODUODENOSCOPY; Surgeon: Howie Gibson MD; Location: [facility] ENDOSCOPY; Se rvice: Gastroenterology; Laterality: N/A; Current 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 (Patient not takin g: Reported on 07/03/2019) ARIPiprazole (ABILIFY) 5 mg tablet Take 1 tablet by mouth Daily. (Patient not taking: R eported on 07/03/2019) atorvaSTATin (LIPITOR) 40 mg tablet Take 1 tablet by mouth nightly. (Patient not taking : Reported on 07/03/2019) Blood Glucose Monitoring Suppl (BLOOD GLUCOSE MONITOR SYSTEM) w/Device KIT Dispense bra nd per patient preference Blood Pressure KIT Dispense as insurance allows to check Blood Pressure one time daily each day. budesonide-formoterol (SYMBICORT) 160-4.5 mcg/puff inhaler Inhale 2 puffs into the lung s 2 times daily. (Patient not taking: Reported on 07/03/2019) finasteride (PROSCAR) 5 mg tablet Take 1 tablet by mouth Daily. (Patient not taking: Re ported on 07/03/2019) Glucose Blood (BLOOD GLUCOSE TEST STRIPS) STRP For blood sugar testing 4 times daily HYDROcodone-acetaminophen (NORCO) 5-325 mg per tablet Take 1-2 tablets by mouth every 4 hours as needed. (Patient not taking: Reported on 07/03/2019) insulin detemir (LEVEMIR FLEXTOUCH) 100 units/mL injection [...] (Patient not t aking: Reported on 07/03/2019) meclizine (ANTIVERT) 25 mg tablet Take 1 tablet by mouth 3 times daily as needed. (Zaira ent not taking: Reported on 07/03/2019) melatonin 3 mg TABS Take 1 tablet by mouth nightly as needed for Insomnia. (Patient not taking: Reported on 07/03/2019) metFORMIN (GLUCOPHAGE) 500 mg tablet Take 1 tablet by mouth 2 times daily (with breakfa st & dinner). (Patient not taking: Reported on 07/03/2019) omeprazole (PRILOSEC) 20 mg capsule TAKE ONE CAPSULE BY MOUTH EVERY MORNING (BEFORE HEAVENLY AKFAST) (Patient not taking: Reported on 07/03/2019) tamsulosin (FLOMAX) 0.4 mg CAPS Take 1 capsule by mouth 2 times daily. (Patient not dominique ing: Reported on 07/03/2019) Allergies Allergies Allergen Reactions Nitroglycerin Swelling Tongue swelling Vitamin B12 Rash Rash Family and Social History Family History Problem Relation Age of Onset [...] in the last 6 months. Review of Systems: Review of Systems Constitutional: Positive for increase in falls and generalized weakness Genitourinary: Positive for frequency and urgency. All other systems reviewed and are negative. USE dot-ros and make sure to check all other negative Physical Exam BP (!) 234/105 | Pulse 76 | Temp 36.6 C (97.8 F) (Oral) | Resp 18 | SpO2 94% Vitals: elevated BP, otherwise WNL Pulse Oximetry Interpretation: Normal General: Alert, non-toxic, no active distress and not requiring any emergent interventions Eyes: Normal inspection, pupils equal and round, non-icteric sclera ENT: Ears normal. Nose normal. Pharynx normal Neck: Normal inspection. Supple full ROM Cardiovascular: Normal rate and rhythm. No extra sounds. No murmurs rubs or gallops Respiratory: No respiratory distress or wheezing. Normal excursion. No retractions Abdomen: Soft, non-tender, non-distended. Normal active bowel sounds : Deferred Back: Normal inspection without tenderness or deformity Skin: Color normal warm and dry Extremities: BARNARD with equal pulses in the upper and lower extremities bilaterally Neuro: No gross motor/sensory deficit GCS 15 No cerebellar deficits. Alert and oriented to person, place, time and situation. EKG, Laboratory and Radiology Findings EKG results: ====EKG Interpretation==== Time: 6:23 AM Rate: 82 bpm Rhythm: Normal sinus rhythm Possible left atrial enlargement Prolonged QT Interpreted by Zach Tena MD Laboratory Evaluation: No results found for this or any previous visit (from the past 24 hour(s)). Radiology Evaluation (X-Rays interpreted by ED Physician): Recent Results (from the past 360 hour(s)) XR Chest AP Portable Narrative CHEST PORTABLE ONE VIEW CLINICAL INFORMATION: Shortness of breath, Fever. COMPARISON: XR CHEST AP PORTABLE (05/15/2019); XR CHEST PA AND LATERAL (04/13/2019); XR CHEST PA AND LATERAL (04/04/2019); XR CHEST 2 VIEW FRONTAL AND LATERAL (02/06/2018); FINDINGS: Heart size is normal. Lungs are clear. Impression No active disease. Signed by: Irina rG Shawn Sign Date/Time: 07/03/2019 11:[address] Angiogram Pulmonary w Contrast Narrative CT ANGIOGRAM PULMONARY CLINICAL INFORMATION: Chest pain with palpitations and atrial fibrillation. Elevated D-dimer. History of COPD. COMPARISON: XR CHEST AP PORTABLE (07/03/2019); XR CHEST AP PORTABLE (05/15/2019); XR CHEST PA AND LATERAL (04/13/2019); CTA CHEST PULMONARY EMBOLISM W CONTRAST (09/21/2018); CTA CHEST PULMONARY EMBOLISM W CONTRAST (10/23/2017); PROCEDURE: Thin-section images of the entire chest after the administration of 56 ml Omnipaque 350 intravenous contrast. 3D MIP [...] plate destruction. No lytic or blastic lesion. Impression No acute cardiopulmonary disease. Lungs clear. No pulmonary embolism. Signed by: Irina Atkinson Zachary Sign Date/Time: 07/03/2019 10:55 PM Medical Decision Making and Emergency Department Course The patient was seen, evaluated and examined, presenting to the ED with complaints of incre ase in falls and generalized weakness. I feel that the list of possible emergent diagnoses that the patient requires an evaluation for includes (but is not limited to) sepsis, hyperte nsive urgency, ACS, vs. other. I believe that laboratory testing and further diagnostic sarah ting is necessary to ensure that there is no acute emergent cause of the symptoms. 6:26 AM CBC shows decreased hemoglobin at 12.9, elevated absolute monocytes at 0.98, and el evated absolute eosinophils at 0.52. Serum ketones is negative. 6:35 AM UA shows glucose at 150. CMP shows decreased potassium at 3.4, elevated glucose at 192, decreased total protein at 5.7, and elevated ALK PHOS at 125. 7:16 AM Procalcitonin is at <0.05. 8:18 AM Updated the patient on results. Patient reports he has not taken his BP medication due to being out of his medication. He states he will not be able to receive more medication until 07/10/2019. Will give him his doses today and have case management talk to the patient to receive his additional doses. 9:16 AM Discussed the patient with case management who will speak to the patient. 9:57 AM Spoke to case sealer who recommends providing a 10 day supply of his blood pressur e medications 10:16 AM I have discussed my clinical impression [...] or further ED treatment at this time. Pertinent labs & imaging studies were reviewed along with EMS notes and [facility] record s if applicable. (See chart for details). Medications and allergy list reviewed. Nurses note and old records were reviewed Last Set of Vital Signs: Temp: 36.6 C (97.8 F) Pulse: 79 Resp: 18 SpO2: 97 % BP: (!) 23 0/92 Medications sodium chloride 0.9% (NS) bolus 1,000 mL (0 mLs Intravenous Stopped 07/06/19 0840) hydrALAZINE (APRESOLINE) injection 10 mg (10 mg Intravenous Given 07/06/19 0651) Vitals: 07/06/19 0601 07/06/19 0631 07/06/19 0702 07/06/19 1002 BP: 199/85 199/86 169/74 (!) 230/92 Pulse: 73 74 71 79 Resp: Temp: TempSrc: SpO2: 96% 97% 97% Final Impression: 1. Hypertension, unspecified type 2. Difficulty obtaining medication 3. Fall, initial encounter Follow-up Information Holly Pack NP. Schedule an appointment as soon as possible for a visit in 1 week. Specialty: Nurse Practitioner - Primary Care Contact information: [address] [facility] [id number] Go to [facility]. Specialty: Emergency Medicine Why: If symptoms worsen Contact information: [address] [facility] [address] Discharge Medication List as of 07/06/2019 12:08 PM ED Disposition ED Disposition Condition Comment Discharge Stable Procedures Attending Provider Note: IZach MD personally performed the services described in this documentation, as scribed by Noble Guerin in my presence, and it is both accurate a nd complete. Chart Reviewed and Completed 07/07/2019 1:34 PM Scribe: I Kari Barrientos, scribing for and in the presence of Zach Tena MD. Completed by: Kari Barrientos 07/06/2019 10:17 AM Zach Tena MD 07/07/19 1334 Breanne Barber DO - 07/06/2019 5:30 AM PDT5:30 AM Medical screening exam at this time. Brought in by EMS for weakness. He appears well alth ough is mildly tachypneic and seems somewhat anxious. He states that he has been weak and h is legs have given out on him for times yesterday. He is worried about this. He has not be en able to get his antibiotic prescription for a known UTI. Was in the hospital for UTI and sepsis from June 30- at which point he became agitated and left the hospital AMA. He has also not been on his blood pressure medications for the past 2 days because he ran out. No signs of trauma on exam. No abdominal tenderness. He is afebrile. Breanne Hurtado DO 07/06/19 0541 Lacey Palacios RN - 07/06/2019 5:30 AM PDTPT c/o high blood pressure r/t being out of his medications and UTI symptoms (weakness) due to a UTI symptoms, pt initially stated he hasn't been able to ge t his medications for it, he also states he had some falls this morning due to the weakness, but denies hitting his head. Pt seems to be a poor historian. Electronically signed by Lacey Jackson RN at 020 5:32 AM Lacey Palacios RN - 07/06/2019 5:29 AM PDTBed: ED19 Expected date: 07/06/19 Expected time: 5:17 AM Means of arrival: Comments: 172 documented in thi s encounter Miscellaneous Notes Plan of Care - González Soni MSW - 07/06/2019 10:20 AM PDTReferral to see patient in emerge ncy room due to medications. CM met with patient. He is familiar to this CM. He is alert and pleasant. Pt states he has not been able to refill his medications and cannot afford his co -pay as he is on limited unearned income and on managed medicaid insurance. Pt reports he is paid in 07/10/2019. Reviewed that patient should be obtaining his 30 day supply when paid and that he will need to manage his medications well as to not over or undertake pills. Patient is agreeable adame saad reports he income is very limited. Indigent medication fill for 7 days provided. RX pharmacy to provide. updated. documented in this encounter Plan of Treatment [...] | | | | | | [place] [address] | | | | | | [phone] | | | | | | | | +--------+ + + + + + +------+--------+ + + | Name | Type | Priori | Associated Diagnoses | Date/Time | | | | ty | | | + +------+--------+ + + | ED INFORMATION | COLTON | Routin | | 07/06/2019 5:30 AM | | EXCHANGE | | e [...] + + | ECG 12 LEAD | ESCOBAR [...] + + | KETONES,SERUM | STAT | 07/06/2019 [...] + + | COMPREHENSIVE | STAT | 07/06/2019 [...] | | n - | | | 05/30/ | | | 2020 | | | 5:31 | | | [...] | | | ON?05/ | | | 30/202 | | | 0 | | | 05:29? | | | GR, | | | NORAH | | | | | | M?MRN: | | | | | | [id number] | | | [id number] | | | riteri | | | [...] | | [facility] | | | [place] | | | [place] | | | [...] | | [facility] [place] | [place] | [place] | | | [place] | | | [...] | | | [place] | | | Card [place] | | | al | | | [...] | | | [place] | | | [place] | | | al | | | [...] | | | HOLLY, | | | ASSOCIATE PROFESSOR OF ENGINEERING | | | Nurse | | | [...] | | | 2019 | | | [facility] | | | tive | | | Medica | | | l | | | [employer] | | | logies | | | , Inc[employer] | | | - | | | [email or web address] | | | llecti | | | vemedi | | | [email or web address] | | | m | +---+--------+ documented in this encounter Results POC Glucose (07/06/2019 8:40 AM PDT) + + + + + + | Component | Value | Ref Range | Performed | Pathologist | | | | | At | Signature | + + + + + + | Glucose, | 195 (H)Comment: Testing | 65 - 99 mg/dL | [facility] | | | POC | performed at [facility];[address] | | LABORATORY | | | | [address];[place], [place] | | | | | | [address] | | | | + + + + + + + + | Specimen | + + | | + + + + + + + | Performing | Address | City/State/Zipcode | Phone Number | | Organization | | | | + + + + + | [facility] | [address] | [place] [address] | [phone] | + + + + + Culture, Urine (07/06/2019 6:33 AM PDT) + + + + + [...] RESULT | Testing performed at | | [facility] | | | | [facility], [address] | | LABORATORY | | | | [place], [place] | | | | | | [id number]: Testing | | | | | | performed at [facility], [address] | | | | | | [facility], | | | | | | [place] [address] | | | | + + + [...] | + + + + + | [facility] | [address] | [place] [address] | [phone] | + + + + + Urinalysis With Microscopic (07/06/2019 6:33 AM PDT) + + + + + [...] | 1.016 | 1.002 - 1.030 | [facility] | | | [place], | | | LABORATORY | | | [...] + + + | Glucose, Ur | 150 (A) | NEG mg/dL | [facility] | [...] | | | Urine | performed at [facility];[address] | | LABORATORY | | | | [address];[place], [place] | | | | | | [address] | | | | + + + + + + + + | Specimen | + + | Urine | + + + + + + + | Performing | Address | City/State/Zipcode | Phone Number | | Organization | | | | + + + + + | [facility] | [address] | [place] [address] | [phone] | + + + + + ECG 12 lead (07/06/2019 6:23 AM PDT) + + + + + [...] + + + + | P-R | 168 | ms | [facility] | | | INTERVAL | | | | | + + + + + + | QRS | 84 | ms | [facility] | | | DURATION | | | | | + + + + + + | Q-T | 430 | ms | [facility] | | | INTERVAL | | | | | + + + + + + | Q-T | 502 | ms | [facility] | | | INTERVAL | | | | | | (CORRECTED) | | | | | + + + + + + | P WAVE AXIS | 17 | degrees | [facility] | | + + + + + + | QRS AXIS | 45 | degrees | [facility] | | + + + + + + | T AXIS | 36 | degrees | [facility] | | + + + + + + | INTERPRETAT | Normal sinus | | [facility] | | | ION TEXT | rhythmPossible Left | | | | | | atrial | | | | | | enlargementProlonged | | | | | | QTAbnormal ECGNo | | | | | | previous ECGs | | | | | | availableThis ECG | | | | | | contains Unconfirmed | | | | | | Interpretation | | | | | | Statements. See ED | | | | | | Record for Physician | | | | | | Interpretation. | | | | | | Confirmed by MUSE READ | | | | | | ONLY, -COMPUTER ([id number]), | | | | | | map editor SANTHOSH VÁSQUEZ | | | | | | ([phone]) on 07/08/2019 | | | | | | 5:34:11 PM | | | | + + [...] | | | + +---------+ + + Procalcitonin (07/06/2019 5:58 AM PDT) + + + [...] | | at [facility];[address] [place] [address] | | | | | | [facility];[place] [address] | | | | + + + + + + + + | Specimen | + + | Blood | + + + + + + + | Performing | Address | City/State/Zipcode | Phone Number | | Organization | | | | + + + + + | [facility] | [address] | [place] [address] | [phone] | + + + + + Ketones, Serum (07/06/2019 5:58 AM PDT) + + + + + + | Component | Value | Ref Range | Performed | Pathologist | | | | | At | Signature | + + + + + + | Ketones, | NEGATIVEComment: Testing | NEG | [facility] | | | Blood | performed at [facility];[address] | | LABORATORY | | | | [address];[place] | | | | | | [address] | | | | + + + + + + + + | Specimen | + + | Blood | + + + + + + + | Performing | Address | City/State/Zipcode | Phone Number | | Organization | | | | + + + + + | [facility] | [address] | [place] [address] | [phone] | + + + + + Comprehensive Metabolic Panel (07/06/2019 5:58 AM PDT) + + + [...] + + + + | Protein, | 5.7 (L) | 6.3 - 8.2 g/dL | [facility] | | | Total | | | LABORATORY | | + + + + + + | Albumin | 3.5 | 3.3 - 4.8 g/dL | [facility] | | | | | | LABORATORY | | + + + + + + | Globulin | 2.2 | 1.3 - 4.9 g/dL | [facility] [...] + + + + | AST | 16 | 10 - 45 U/L | [facility] | | | | | | LABORATORY | | + + + + + + | ALT | 12 | 10 - 65 U/L | [facility] [...] | | | | | | MDRD IDMT traceable | | | | | | equation.Testing | | | | | | performed at [facility];[address] | | | | | | [facility];[place], [place] | | | | | | [address] | | | | + + + + + + + + | Specimen | + + | Blood | + + + + + + + | Performing | Address | City/State/Zipcode | Phone Number | | Organization | | | | + + + + + | [facility] | [address] | [place] [address] | [phone] | + + + + + CBC with Differential (07/06/2019 5:58 AM PDT) + + + + + + | Component | Value | Ref Range | Performed | Pathologist | | | | | At | Signature | + + + + + + | WBC | 10.62 | 3.80 - 11.00 | [facility] | | | | | K/uL | LABORATORY | | + + + + + + | Red Blood | 4.77 | 4.20 - 5.70 | [facility] | | | Cells | | M/uL | LABORATORY | | + + + + + + | Hemoglobin | 12.9 (L) | 13.2 - 17.0 | [facility] | | | | | g/dL | LABORATORY | | + + + + + + | Hematocrit | 39.9 | 39.0 - 50.0 % | [facility] [...] + + + + | MPV | 9.5Comment: NO NORMAL | fl | [facility] | [...] + + + + | % | 63.30 | % | [facility] | | | Neutrophils | | | LABORATORY | | + + + + + + | IMMATURE | 0.50 | % | [facility] | | | GRANULOCYTE | | | LABORATORY | | + + + + + + | % | 21.60 | % | [facility] | | | Lymphocytes | | | LABORATORY | | + + + + + + | Monocyte % | 9.20 | % | [facility] | | | [...] + + + + | Neutrophils | 6.73 | 1.90 - 7.40 | [facility] | | | , Absolute | | K/uL | LABORATORY | | + + + + + + | IMMATURE | 0.05Comment: NOTE NEW | 0.00 - 0.07 | [facility] | | | GRANS AB | REFERENCE RANGE | K/uL | LABORATORY | | + + + + + + | Absolute | 2.29 | 1.00 - 3.90 | [facility] | | | Lymphocytes | | K/uL | LABORATORY | | + + + + + + | Absolute | 0.98 (H) | 0.00 - 0.80 | [facility] | | | Monocytes | | K/uL | LABORATORY | | + + + + + + | Eosinophils | 0.52 (H) | 0.00 - 0.50 | [facility] | | | , Absolute | | K/uL | LABORATORY | | + + + + + + | Basophils, | 0.05Comment: Testing | 0.00 - 0.10 | [facility] | | | Absolute | performed at [facility];[address] | K/uL | LABORATORY | | | | [address];[place] | | | | | | [address] | | | | + + + + + + + + | Specimen | + + | Blood | + + + + + + + | Performing | Address | City/State/Zipcode | Phone Number | | Organization | | | | + + + + + | [facility] | [address] | [place] [address] | [phone] | + + + + + documented in this encounter Visit Diagnoses + + | Diagnosis | + + | Hypertension, unspecified type - Primary | + + | Difficulty obtaining medication | + + | Fall, initial encounter | + + documented in this encounter Administered Medications + +--------+ +---------+------+------+ | Medication Order | MAR | Action | Dose | Rate | Site | | | Action | Date | | | | + +--------+ +---------+------+------+ | carvedilol (COREG) tablet 12.5 | Given | 07/06/19 | 12.5 mg | | | | mg 12.5 mg, Oral, 2 TIMES DAILY | | 20 10:02 | | | | | WITH BREAKFAST & DINNER, First | | AM PDT | | | | | dose on 07/06/19 at 0930 | | | | | | + +--------+ +---------+------+------+ +---+---+ | | | +---+---+ + +-------+ +-------+---+---+ | hydrALAZINE (APRESOLINE) | Given | 07/06/19 | 10 mg | | | | injection 10 mg 10 mg, | | 20 6:51 | | | | | Intravenous, ONCE, 07/06/19 at | | AM PDT | | | | | 0540, For 1 dose | | | | | | + +-------+ +-------+---+---+ +---+---+ | | | +---+---+ + +-------+ +-------+---+---+ | hydrALAZINE (APRESOLINE) tablet | Given | 07/06/19 | 25 mg | | | | 25 mg 25 mg, Oral, 2 TIMES | | 20 10:02 | | | | | DAILY, First dose on 07/06/19 | | AM PDT | | | | | at 0930 | | | | | | + +-------+ +-------+---+---+ + +---+ | | | + +---+ | ibuprofen (ADVIL,MOTRIN) tablet | | | 600 mg 600 mg, Oral, EVERY 6 | | | HOURS PRN, Pain, Starting Sat | | | 07/06/19 at 0949, Give with food., | | | | | + +---+ | | | + +---+ + +-------+ +-------+---+---+ | NIFEdipine (PROCARDIA XL) ER | Given | 07/06/19 | 60 mg | | | | tablet 60 mg 60 mg, Oral, DAILY, | | 20 10:02 | | | | | First dose on 07/06/19 at | | AM PDT | | | | | 0930, Do not cut or crush., | | | | | | + +-------+ +-------+---+---+ +---+---+ | | | +---+---+ + +---------+ +--------+-------+---+ | sodium chloride 0.9% (NS) bolus | New Bag | 07/06/19 | 1,000 | 2000 | | | 1,000 mL 1,000 mL, Intravenous, | | 20 6:04 | mLs | mL/hr | | | Administer over 30 Minutes, | | AM PDT | | | | | ONCE, 07/06/19 at 0540, For 1 | | | | | [...]
--- OUTSIDE RECORDS SUMMARY | ~2019-10-12 | XMS | Encounter Summary ---
Demographics + + + | Address | [address] | | | [place] [address] | + + + | Home Phone [...] Sammi Kohler | ECON | [place] [address] | | + + + + + Care Team Providers + +------+ + | Care Taper [employer]ed [employer] Layout Name | Role | Phone | + [...] + + | 10/11/ | Hospital | [facility] | Contreras, | Type 2 diabetes | | 2019 - | Encounter | [facility] | DO [address] | mellitus with | | | | [address] | [address] | hyperglycemia, with | | 10/16/ | | [place], [place] | [place] [address] | long-term current | | 2019 | | [address] | [phone] | use of insulin (HCC) | | | | [phone] | | (Primary Dx); | | | | | Patti Kelly DO | Syncope, unspecified | | | | | [address] | syncope type; Chest | | | | | [place] [address] | pain, unspecified | | | | | [phone] | type; Hypertension, | | | | | | unspecified type; | | | | | Natalia Olea MD | Chronic | | | | | [address] | anticoagulation; | | | | | [place] [address] | Other chest pain; | | | | | [phone] | Uncontrolled | | | | | | hypertension; | | | | | Agustín Box MD | Allergy history, | | | | | [address] | drug | | | | | [place] [address] | | | | | | [phone] | | | | | | | | | | | | Noble Conteh MD | | | | | | [address] [facility] [facility] | | | | | | [place] [address] | | | | | | [phone] | | | | | | | | | | | | Norah Duron | | | | | | Osmar Andrea MD [address] | | | | | [address] [place], [place] | | | | | | [address] | | | | | | | [...] diff erent from the original. Patient: Norah Gr : 1955 Date of Admission: 10/11/2018 Date of Discharge: 10/16/2018 Discharging Provider: Norah Duron MD Discharge Diagnoses: Principal Problem: Other chest pain resolved Active Problems: Syncope Uncontrolled hypertension Type 2 diabetes mellitus with hyperglycemia Anxiety Chronic anticoagulation Procedures Performed: Chief Complaint: Evaluation Of Abnormal Ekg Hospital Course: Norah Gr is a 62 y.o. male past medical [...] should.. Patient was ruled out from having NJ on seria l cardiac enzymes, blood pressures and blood sugars were better controlled, OT and PT saw th e patient recommended SNF and the patient was subsequently discharged to [facility]. Discharge Exam and Data: Vital Signs: [...] Atkinson, Rhys Sign Date/Time: 10/12/2018 1:04 AM Vas Carotid [...] with your new PCP on 10/23/2018 as schduled previously [place] [address] [address] [facility] [phone] Discharge Medications New Medications Details acetaminophen 325 [...] 2 times daily. aka: FLOMAX Disposition: [facility] Condition: Stable Code Status: Full [...] for adjustment of doses and medications. Tammy chad take all the medication to your PCP [...] | 1 | 10/17/19 | | | (ROLANDOFJesus) 5 mg | mouth Daily for 30 [...] 3:33 PM PDTDischarge packet sent w [facility] bulk delivery driver . PIV x2 removed. No injury sustained from fall this afternoon. Kaylene Mayer RN Kaylene Hutson RN - 10/16/2018 2:25 PM PDTReport given to Eloina at [facility]. All questions answered. Kaylene Mayer RN Kaylene Hutson RN - 10/16/2018 12:49 PM PDTWitnessed fall at 1236 by Biotechnologist. Pt was in doorway. We nt to [...] Olea MD - 10/15/2018 3:39 PM PDT [facility] Service: Hospitalist Progress Note Hospital Day: LOS: 3 days SUBJECTIVE Patient Summary: From [facility] Dr. Kelly 10/11/18 The patient is a [...] stress negative . Patient ran out of Condomani 3 days ago Seen in the ER [...] 98 kg (10/11/18 181) Last: 99.7 kg (10/15/18 035) Difference: 1.7kg Weight change: -0.363 kg (-12.8 [...] and vitals reviewed. DATA Recent Labs 10/15/18 0612 WBC 13.79* HGB 14.5 HCT 42.1 PLT [...] for input(s): IRON, TIBC, PCTSAT, FERRITIN, TSH, [id number], FOLATE in the last 168 hours. No [...] radiologists in ultrasound consensus criteria. Radiology. 2003 Nov;229(2):340-6. 2002Oct 24. Signed by: Irina Ji Richard [...] -Insulin sliding scale increased to high tier -senior health educator consult Anxiety: -Continue Abilify -Added Lorzepam [...] Kaylene Hutson RN - 10/14/2018 5:36 PM Breanna cathet er removed at 1730 for voiding trial, ok'd by Dr. Olea. Notified Dr. Olea of all gluco se checks >400. Pt stating that ativan has "helped w anxiety and chest pain" Kaylene Mayre RN ildredttara, Toney Calixto RN - 10/14/2018 6:54 AM PDTPt reports anxiety due to parents early demise, during episodes of chest pain. Pain managed with PRN pain meds, active listening, and aromatherapy. Patient was increased to medium sliding scale. Morning blood glucose needed a confirmation lab draw- 474. Hospitalist notified, 10 units given plus 5 of morning dose. Other VSS. [facility] TONEY DORADO RN atalia Olea M D - 10/14/2018 6:11 AM PDT [facility] Service: Hospitalist Progress Note Hospital Day: LOS: 2 days SUBJECTIVE Patient Summary: From [facility] Dr. Kelly 10/11/18 The patient is a [...] stress negative . Patient ran out of Condomani 3 days ago Seen in the ER [...] 18 97 % 14:LAST:1 98 kg (10/11/18 181) Last: 100.1 kg (10/14/18 0346) Difference: 2.1kg [...] for input(s): IRON, TIBC, PCTSAT, FERRITIN, TSH, [id number], FOLATE in the last 168 hours. No [...] gtt. (allergy list now transitioned to new [facility] alignment) -Report compliance with medication patient is [...] Sullivan MD - 10/13/2018 2:29 PM PDT [facility] Service: Hospitalist Progress Note Hospital Day: LOS: 1 day SUBJECTIVE Patient Summary: From [facility] Dr. Kelly 10/11/18 The patient is a [...] stress negative . Patient ran out of Condomani 3 days ago Seen in the ER [...] 224 MCV 84.3 83.3 Recent Labs Lab 10/12/1832610/11/18 21410/10/18 1736 NA 137 136 140 K [...] for input(s): IRON, TIBC, PCTSAT, FERRITIN, TSH, [id number], FOLATE in the last 168 hours. No [...] Radiology. 2002;229(2):340-6. 2002Oct 24. Signed by: Irina Ji, Kishan Sign Date/Time: 10/12/2018 2:47 PM Imaging: Imaging [...] 6:24 PM PDTPt admitted to unit from 6RP. Pt continued on nicardipine drip and BP [...] Sullivan MD - 10/12/2018 3:30 PM PDT [facility] Service: Hospitalist Progress Note Hospital Day: LOS: 0 days SUBJECTIVE Patient Summary: From [facility] Dr. Kelly 10/11/18 The patient is a [...] stress negative . Patient ran out of Condomani 3 days ago Seen in the ER on October 10 for chest pain. Lab work remarkable for hyperglycemia and a n egative troponin. BP was as high as 219/114. 10/12/18 Patient initiated on Nitro gtt, however per review of nursing staff, noticed he has allergy to Nitro. (allergies list was not transition to [facility] allignment). Patient's tongue became swollen, and it was difficult for him to speak. Nitro drip and patch was removed. 02 levels remained normal. He felt nauseated and was coughing up thick secretions. He was d iaphoretic. ICU was notified and patient was placed on Dexamethasone and Pepcid. Patient q mikayla felt improved. He was able to speak [...] for input(s): IRON, TIBC, PCTSAT, FERRITIN, TSH, [id number], FOLATE in the last 168 hours. No [...] Nicardipine gtt. -Differential diagnosis includes angina, acute NJ, esophagitis, pneumonic process, musculos keletal vs others [...] gtt. (allergy list now transitioned to new [facility] alignment) -Report compliance with medication patient is [...] might be different from t keaton original. [facility] Service: Hospitalist Admission History & Physical Date of Admission: 10/11/2018 Primary Care Physician: Mik K. Westhusing, DO Reason for Admission: Chest pain, syncope, [...] stress negative . Patient ran out of Condomani 3 days ago Seen in the ER [...] Medical History: Diagnosis Date Acute pulmonary embolism ([facility]) 10/14/2017 Anxiety ARF (acute renal failure) ([facility]) 03/02/2013 Atrial fibrillation ([facility]) Basal cell carcinoma 09/26/2012 arm and back COPD (chronic obstructive pulmonary disease) ([facility]) 03/02/2013 hypoxemia on 2 lts nc Depression Development delay Diabetes mellitus type II DVT (deep venous thrombosis) ([facility]) 03/29/2018 Facial droop 07/08/2013 GIB (gastrointestinal [...] - CHOLECYSTECTOMY; Surgeon: Jevon Vargas DO; Location: [facility] MAIN OR; Service: General; Laterality: N/A; COLONOSCOPY COLONOSCOPY 03/04/2013 Procedure: COLONOSCOPY; Surgeon: Howie Gibson MD; Location: [facility] ENDOSCOPY; Service: Gastroen terology; Laterality: N/A; HERNIA REPAIR 07/03/2013 Procedure: LAPAROSCOPIC - HERNIA - INCISIONAL; Surgeon: Jevon Vargas DO; Location: [facility] MAIN OR; Service: General; Laterality: N/A; KNEE SURGERY rt knee, patella LEG SURGERY LLE OTHER SURGICAL HISTORY UNLISTED PROCEDURE ARTHROSCOPY OTHER SURGICAL HISTORY Left 05/05/2014 SKIN LESION EXCISION - Procedure: EXCISION - LESION - FROZEN SECTION; Surgeon: Sy murcia MD; Location: [facility] MAIN OR; Service: Plastics; Laterality: Left; forearm SKIN BIOPSY SKIN CANCER EXCISION Left 10/10/2012 Procedure: EXCISION - SKIN CANCER; Surgeon: Sy Fierro MD; Location: [facility] MAIN OR; Service: Plastics; Laterality: Left; upper arm and upper back w/frozen section UPPER GASTROINTESTINAL ENDOSCOPY UPPER GASTROINTESTINAL ENDOSCOPY 03/03/2013 Procedure: ESOPHAGOGASTRODUODENOSCOPY; Surgeon: Howie Gibson MD; Location: [facility] ENDOSCOPY; Se rvice: Gastroenterology; Laterality: N/A; ALLERGIES [...] sedentary behavior -Differential diagnosis includes angina, acute NJ, esophagitis, pneumonic process, musculos keletal vs others [...] prophylaxis Code Status: No Order Dictation software, Treeveo, used which may contain errors for similar [...] was here to pick help him to [facility] who he lps him at home [...] with obtaining medications and care. Discussed with Bioinformatician as it appears pt needs help navigating the health care and [employer] systems. Per CM, agencies are being made aware of his situation. Jenniffer Galarza RN, Biotechnologist 10/16/18 15:35 Francisco J Loyola M D - 10/12/2018 6:31 PM PDT I was called by Dr. Olea to evaluate this 62-year-old gentleman who was admitted [facility] for hypertensive emergency. The patient was [...] Tracey DO - 10/11/2018 9:20 PM PDT [facility] Department of Emergency Medicine 21:25 History of [...] and does not want to have a NJ. 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 Obesity, Class I, BMI 30-34.9 07/08/2013 WARD (obstructive sleep apnea) 08/11/2012 does not use CPAP because of the noise Other chronic pain Renal failure Stroke (HCC) TIA (transient ischemic attack) Unspecified visual disturbance reading glasses Past Surgical History: Procedure Laterality Date ABDOMEN SURGERY CHOLECYSTECTOMY CHOLECYSTECTOMY, LAPAROSCOPIC 09/12/2012 Procedure: LAPAROSCOPIC - CHOLECYSTECTOMY; Surgeon: Jevon Vargas DO; Location: [facility] MAIN OR; Service: General; Laterality: N/A; COLONOSCOPY COLONOSCOPY 03/04/2013 Procedure: COLONOSCOPY; Surgeon: Howie Gibson MD; Location: [facility] ENDOSCOPY; Service: Gastroen terology; Laterality: N/A; HERNIA REPAIR 07/03/2013 Procedure: LAPAROSCOPIC - HERNIA - INCISIONAL; Surgeon: Jevon Vargas DO; Location: [facility] MAIN OR; Service: General; Laterality: N/A; KNEE SURGERY rt knee, patella LEG SURGERY LLE OTHER SURGICAL HISTORY UNLISTED PROCEDURE ARTHROSCOPY OTHER SURGICAL HISTORY Left 05/05/2014 SKIN LESION EXCISION - Procedure: EXCISION - LESION - FROZEN SECTION; Surgeon: Sy murcia MD; Location: [facility] MAIN OR; Service: Plastics; Laterality: Left; forearm SKIN BIOPSY SKIN CANCER EXCISION Left 10/10/2012 Procedure: EXCISION - SKIN CANCER; Surgeon: Sy Fierro MD; Location: [facility] MAIN OR; Service: Plastics; Laterality: Left; upper arm and upper back w/frozen section UPPER GASTROINTESTINAL ENDOSCOPY UPPER GASTROINTESTINAL ENDOSCOPY 03/03/2013 Procedure: ESOPHAGOGASTRODUODENOSCOPY; Surgeon: Howie Gibson MD; Location: [facility] ENDOSCOPY; rvice: Gastroenterology; Laterality: N/A; Prior to [...] Positive for chest pain, AFib Negative for pplskuhfd-uc-iehlls GI: Negative for abdominal pain, nausea, vomiting, [...] I have considered arrhythmia (NSR here on compliance monitor), ICH (no n euro deficits or KELLEY or trauma), CVA (no neuro deficits), anemia (no GI bleeding), infection (no signs of PEDORTHIST infection, PNA, UTI, bacteremia), vasovagal (inconsistent history), [...] Component Value Ref Range Date/Time Troponin I [[id number]] Collected: 10/12/18 0000 Order Status: Completed Specimen: Blood Updated: 10/12/18 0049 Troponin T 0.039 0.00 - 0.04 ng/mL Comprehensive Metabolic Panel [[id number]] (Abnormal) Collected: 10/11/18 2142 Order Status: Completed Specimen: Blood Updated: 10/11/18 2216 Na 136 135 - 145 mmol/L K [...] Estimated GFR >60 >60 mL/min/1.73m2 Troponin I [[id number]] Collected: 10/11/182141 Order Status: Completed Specimen: Blood Updated: 10/11/182215 Troponin T 0.04 0.00 - 0.04 ng/mL CBC with Differential [[id number]] (Abnormal) Collected: 10/11/182141 Order Status: Completed Specimen: [...] Admit Clinical impression: Syncope, unspecified syncope type [[id number]] Clinical impression: Chest pain, unspecified type [[id number]] Clinical impression: Hypertension, unspecified type [[id number]] Admitting provider: SURESH HOSPITALIST [[id number]] Expected patient class: Observation [104] Level of service: Medical Discharge Medications: ED Prescriptions None Procedures Gamal Contreras DO 10/12/18 0307 pencer, Malia Gross RN - 10/11/2018 9:02 PM PDTED Triage Note Norah Gr 62 y.o. male presents in the ED [...] Readmission Risk: HIGH Discharge Plan Planned Disposition: [facility] Facility - SNF Planned Destination: [facility] of Choice: Yes Community Care Provider: Patient/Family Notified: yes Transportation will be provided by: Transportation Date/Time: 1500 Confirmed 3 Qualifying Midnights: yes SNF Authorization Received: yes PASRR Completed: Yes - faxed Exempted Hospital Discharge less than 30 days. Faxed to [employer] Jessenia Love PAS[facility] [employer] [phone] phone. Okay by Ladi Marquez at [facility] SNF to admit. Electronically signed: QUINN MABRY 10/16/2018 15:48 NF Transfer - Louis barrett, Norah Andrea MD - 10/16/2018 3:07 PM PDTFormatting of this note might be different fr om the original. SKILLED/INTERMEDIATE NURSING FACILITY TRANSFER ORDERS Patient: Norah Gr : 1955 Date of Admission: 10/11/2018 Date of Discharge: 10/16/2018 Primary Care Provider: Mik Diego DO Admitting Provider: Patti Kelly DO Discharging Provider: Norah Duron MD Transferring Medical Center: Receiving Facility: [facility] Provider after Transfer: Mireya Pack NURSE ASSESSMENT [...] discussed with: Patient Name of discussant: Norah Gr Date discussed: 10/11/2018 Advance Care Planning documents included: None PHYSICIAN TRANSFER ORDERS Activity Weight bearing as tolerated Therapies PT evaluation and management OT evaluation and management BRIGHT CUTTER evaluation and management for: Impaired Speech/Language/Cognition/Communication Diet [...] mouth 2 times daily. aka: FLOMAX By: Norah Duron MD Quant: 60 capsule TB screening: [...] new PCP on 10/23/2018 as clayled previously [address] [address] Certification I certify that the following level of post-hospital care is medically necessary on a contin uing basis for any of the conditions for which he received care during this hospitalization: Skilled ([facility] Facility with 24-hour skilled RN service) Electronically signed by: Norah Duron MD 10/16/2018 15:08 NURSING FACILITY USE ONLY Admitting orders verbally reviewed with Admitting Physician: Orders were reviewed and ruth ann fied where appropriate and approved: RN signature: Date: Time: Physician's signature: Date: Time: lan of Care - Marilyn Snyder, PT - 10/15/2018 11:13 AM PDTPhysical Therapy Initial Evaluation Note Recommended discharge disposition: fpc facility Post discharge physical therapy recommendation: home [...] who completes cooking/cleani ng; groceries obtained from [employer]; pt completes laundry outside of home independe [...] HOB elevated Sidelying to Sit, Level of [place]: modified independent Transfers Sit-Stand, Level of [place]: supervised Stand-Sit, Level of [place]: modified independent Yph-Bbfvh-Uld, Assistive Device: none Gait shuffle, significant R path deviation with and without AD, inconsistent aaron, trunk flex ion w/ AD, inc wb on UE in AD Level of [place]: minimal assist (75% patient effort)(with and without AD) Assistive Device: gait belt, 2 wheeled walker (FWW) Distance (feet): 2p696om Balance Balance Additional Documentation: Tripetti (group) Goals Reflects last filed data and may be from multiple contributors. All Transfers Goal STG Status: new STG [place] Level: modified independent STG Assistive Device: none Gait Goal STG Status: new STG [place] Level: modified independent STG Assistive Device: (LRAD) STG Distance (feet): 250, 500 Additional Goal #1 STG Status: new STG: Pt will score at least 24 on Tinetti Assessment lan of Jelena - Natalie Hearn RN - 10/15/2018 12:10 [...] and Integrity Outcome: Ongoing, progressing lan of [facility] Sanjuanita Whitaker MSW - 10/14/2018 9:35 AM [...] (Sammi Kohler, ex in laws) Phone: (P) ([phone]) DC Needs Assessment Anticipated Changes Related to [...] reported that he has paid caregivers with [facility] and has 20 hrs/month. [...] denied having Health Care Directive and POA. SURGICAL BRACE MAKER CM provided Healthcare Directive paper work per pt request. Electronically signed: QUINN JUAREZ 10/14/2018 9:35 lan of Jelena - Toney Dorado RN - 10/14/2018 6:08 AM PDT Problem: [...] mu ltiple anxiety relief measures. lan of Jelena - Genna Young RN - 10/13/2018 5:43 PM PDT Problem: [...] AM PDTWhile doing bedside report with the brass wind instruments tube bender nurse Patients b/p was 230's /120. Justino prabhakar was just getting started on a nitro [...] | | | | | [place], | | | | | | [place] [address] | | | | | | [phone] | | | | | | | [...] | | n - | | | 10/11/ | | | 2019 | | | 6:03 | | | [...] | | | ON?09/ | | | 05/ | | | 9 | | | 18:01? | | | GR, | | | NORAH | | | | | | M?MRN: | | | | | | [id number] | | | [id number] | | | riteri | | | [...] | | s [facility] | | | [place] | | | [place] | | | [...] [facility];[address] | | LABORATORY | | | | [address];[place] | | | | | | [address] | | | | + + + + + + + + | Specimen | + + | | + + + + + + + | Performing | Address | City/State/Zipcode | Phone Number | | Organization | | | | + + + + + | [facility] | [address] | [place] [address] | [phone] | + + + + + POC Glucose (10/16/2018 8:20 AM PDT) + + + + + + | Component | Value | Ref Range | Performed | Pathologist | | | | | At | Signature | + + + + + + | Glucose, | 321 (H)Comment: Testing | 65 - 99 mg/dL | [facility] | | | POC | performed at [facility];[address] | | LABORATORY | | | | [address];[place] | | | | | | [address] | | | | + + + + + + + + | Specimen | + + | | + + + + + + + | Performing | Address | City/State/Zipcode | Phone Number | | Organization | | | | + + + + + | [facility] | [address] | [place] [address] | [phone] | + + + + + POC Glucose (10/16/2018 6:25 AM PDT) + + + + + + | Component | Value | Ref Range | Performed | Pathologist | | | | | At | Signature | + + + + + + | Glucose, | 194 (H)Comment: Testing | 65 - 99 mg/dL | [facility] | | | POC | performed at [facility];[address] | | LABORATORY | | | | [address];[place] | | | | | | [address] | | | | + + + + + + + + | Specimen | + + | | + + + + + + + | Performing | Address | City/State/Zipcode | Phone Number | | Organization | | | | + + + + + | [facility] | [address] | [place] [address] | [phone] | + + + + + XR [...] Irina Atkinson Zachary | | Sign Date/Time: 10/16/2018 5:47 AM [...] | >60Comment: GFR <60: | >60 | [facility] | | | GFR | [...] | | | | | performed at [facility], [address] | | | | | | [facility], | | | | | | [place] [address] | | | | + + + + + + + + | Specimen | + + | Blood | + + + + + + + | Performing | Address | City/State/Zipcode | Phone Number | | Organization | | | | + + + + + | [facility] | [address] | [place] [address] | [phone] | + + + + + CBC [...] 0.01Comment: Testing | 0.00 - 0.10 | [facility] | | | Absolute | performed at [facility], [address] | K/uL | LABORATORY | | | | [address], | | | | | | [place] [address] | | | | + + + + + + + + | Specimen | + + | Blood | + + + + + + + | Performing | Address | City/State/Zipcode | Phone Number | | Organization | | | | + + + + + | [facility] | [address] | [place] [address] | [phone] | + + + + + POC [...] [facility];[address] | | LABORATORY | | | | [address];[place] | | | | | | [address] | | | | + + + + + + + + | Specimen | + + | | + + + + + + + | Performing | Address | City/State/Zipcode | Phone Number | | Organization | | | | + + + + + | [facility] | [address] | [place] [address] | [phone] | + + + + + POC [...] [facility];[address] | | LABORATORY | | | | [address];[place] | | | | | | [address] | | | | + + + + + + + + | Specimen | + + | | + + + + + + + | Performing | Address | City/State/Zipcode | Phone Number | | Organization | | | | + + + + + | [facility] | [address] [facility] | [place] [address] | [phone] | + + + + + POC [...] [facility];[address] | | LABORATORY | | | | [address];[place] | | | | | | [address] | | | | + + + + + + + + | Specimen | + + | | + + + + + + + | Performing | Address | City/State/Zipcode | Phone Number | | Organization | | | | + + + + + | [facility] | [address] | [place] [address] | [phone] | + + + + + POC Glucose (10/15/2018 11:16 AM PDT) + + + + + + | Component | Value | Ref Range | Performed | Pathologist | | | | | At | Signature | + + + + + + | Glucose, | 231 (H)Comment: Testing | 65 - 99 mg/dL | [facility] | | | POC | performed at [facility];[address] | | LABORATORY [...] | + + + + + | [facility] | [address] | [place] [address] | [phone] | + + + + + POC Glucose (10/15/2018 7:48 AM PDT) + + + + + + | Component | Value | Ref Range | Performed | Pathologist | | | | | At | Signature | + + + + + + | Glucose, | 332 (H)Comment: Testing | 65 - 99 mg/dL | [facility] | | | POC | performed at [facility];[address] | | LABORATORY | | | | [address];[place] | | | | | | [address] | | | | + + + + + + + + | Specimen | + + | | + + + + + + + | Performing | Address | City/State/Zipcode | Phone Number | | Organization | | | | + + + + + | [facility] | [address] | [place] [address] | [phone] | + + + + + POC [...] [facility];888 | | LABORATORY | | | | [address];[place], [place] | | | | | | [address] | | | | + + + + + + + + | Specimen | + + | | + + + + + + + | Performing | Address | City/State/Zipcode | Phone Number | | Organization | | | | + + + + + | [facility] | [address] | [place] [address] | [phone] | + + + + + Basic [...] | >60Comment: GFR <60: | >60 | [facility] | | | GFR | [...] | | | | | performed at [facility], [address] | | | | | | [facility], | | | | | | [place] [address] | | | | + + + + + + + + | Specimen | + + | Blood | + + + + + + + | Performing | Address | City/State/Zipcode | Phone Number | | Organization | | | | + + + + + | [facility] | [address] | [place] [address] | [phone] | + + + + + CBC with Differential (10/15/2018 6:12 AM PDT) + + + + + + | Component | Value | Ref Range | Performed | Pathologist | | | | | At | Signature | + + + + + + | WBC | 13.79 (H) | 3.80 - 11.00 | [facility] [...] 0.01Comment: Testing | 0.00 - 0.10 | [facility] | | | Absolute | performed at [facility], [address] | K/uL | LABORATORY | | | | [address], | | | | | | [place] [address] | | | | + + + + + + + + | Specimen | + + | Blood | + + + + + + + | Performing | Address | City/State/Zipcode | Phone Number | | Organization | | | | + + + + + | [facility] | [address] | [place] [address] | [phone] | + + + + + POC [...] [facility];888 | | LABORATORY | | | | [address];[place] | | | | | | [address] | | | | + + + + + + + + | Specimen | + + | | + + + + + + + | Performing | Address | City/State/Zipcode | Phone Number | | Organization | | | | + + + + + | [facility] | [address] | [place] [address] | [phone] | + + + + + POC [...] [facility];[address] | | LABORATORY | | | | [address];[place], [place] | | | | | | [address] | | | | + + + + + + + + | Specimen | + + | | + + + + + + + | Performing | Address | City/State/Zipcode | Phone Number | | Organization | | | | + + + + + | [facility] | [address] [facility] | [place] [address] | [phone] | + + + + + POC [...] [facility];888 | | LABORATORY | | | | [address];[place] | | | | | | [address] | | | | + + + + + + + + | Specimen | + + | | + + + + + + + | Performing | Address | City/State/Zipcode | Phone Number | | Organization | | | | + + + + + | [facility] | [address] | [place] [address] | [phone] | + + + + + Glucose, Random (10/14/2018 3:15 PM PDT) + + + + + + | Component | Value | Ref Range | Performed | Pathologist | | | | | At | Signature | + + + + + + | Glucose | 396 (H)Comment: Testing | 65 - 99 mg/dL | [facility] | | | | performed at [facility];[address] | | LABORATORY | | | | [address];[place] | | | | | | [address] | | | | + + + + + + + + | Specimen | + + | Blood | + + + + + + + | Performing | Address | City/State/Zipcode | Phone Number | | Organization | | | | + + + + + | [facility] | [address] | [place] [address] | [phone] | + + + + + POC Glucose (10/14/2018 2:57 PM PDT) + + + + + + | Component | Value | Ref Range | Performed | Pathologist | | | | | At | Signature | + + + + + + | Glucose, | >400 (H)Comment: Testing | 65 - 99 mg/dL | [facility] | | | POC | performed at [facility];888 | | LABORATORY | | | | [address];[place] | | | | | | [address] | | | | + + + + + + + + | Specimen | + + | | + + + + + + + | Performing | Address | City/State/Zipcode | Phone Number | | Organization | | | | + + + + + | [facility] | [address] | [place] [address] | [phone] | + + + + + POC [...] [facility];[address] | | LABORATORY | | | | [address];[place], [place] | | | | | | [address] | | | | + + + + + + + + | Specimen | + + | | + + + + + + + | Performing | Address | City/State/Zipcode | Phone Number | | Organization | | | | + + + + + | [facility] | [address] | [place] [address] | [phone] | + + + + + Glucose, Random (10/14/2018 11:15 AM PDT) + + + + + + | Component | Value | Ref Range | Performed | Pathologist | | | | | At | Signature | + + + + + + | Glucose | 444 (H)Comment: Testing | 65 - 99 mg/dL | [facility] | | | | performed at [facility];888 | | LABORATORY | | | | [address];[place] | | | | | | [address] | | | | + + + + + + + + | Specimen | + + | Blood | + + + + + + + | Performing | Address | City/State/Zipcode | Phone Number | | Organization | | | | + + + + + | [facility] | [address] | [place] [address] | [phone] | + + + + + POC Glucose (10/14/2018 10:56 AM PDT) + + + + + + | Component | Value | Ref Range | Performed | Pathologist | | | | | At | Signature | + + + + + + | Glucose, | >400 (H)Comment: Testing | 65 - 99 mg/dL | [facility] | | | POC | performed at [facility];[address] | | LABORATORY | | | | [address];[place] | | | | | | [address] | | | | + + + + + + + + | Specimen | + + | | + + + + + + + | Performing | Address | City/State/Zipcode | Phone Number | | Organization | | | | + + + + + | [facility] | [address] | [place] [address] | [phone] | + + + + + POC [...] [facility];[address] | | LABORATORY | | | | [address];[place] | | | | | | [address] | | | | + + + + + + + + | Specimen | + + | | + + + + + + + | Performing | Address | City/State/Zipcode | Phone Number | | Organization | | | | + + + + + | [facility] | [address] | [place] [address] | [phone] | + + + + + Glucose, Random (10/14/2018 5:01 AM PDT) + + + + + + | Component | Value | Ref Range | Performed | Pathologist | | | | | At | Signature | + + + + + + | Glucose | 474 (H)Comment: Testing | 65 - 99 mg/dL | [facility] | | | | performed at [facility];[address] | | LABORATORY | | | | [address];[place] | | | | | | [address] | | | | + + + + + + + + | Specimen | + + | Blood | + + + + + + + | Performing | Address | City/State/Zipcode | Phone Number | | Organization | | | | + + + + + | [facility] | [address] | [place] [address] | [phone] | + + + + + POC Glucose (10/14/2018 4:23 AM PDT) + + + + + + | Component | Value | Ref Range | Performed | Pathologist | | | | | At | Signature | + + + + + + | Glucose, | >400 (H)Comment: Testing | 65 - 99 mg/dL | [facility] | | | POC | performed at [facility];[address] | | LABORATORY | | | | [address];[place] | | | | | | [address] | | | | + + + + + + + + | Specimen | + + | | + + + + + + + | Performing | Address | City/State/Zipcode | Phone Number | | Organization | | | | + + + + + | [facility] | [address] | [place] [address] | [phone] | + + + + + Hemoglobin A1C (10/14/2018 3:01 AM PDT) + + + + + + | Component | Value | Ref Range | Performed | Pathologist | | | | | At | Signature | + + + + + + | Hemoglobin | 11.0 (H)Comment: HbA1c | 4.0 - 6.0 % | [facility] | | | A1c | method is [...] | 269 (H)Comment: | <154 mg/dL | [facility] | | | Average | Estimated Average | | LABORATORY | | | Glucose | Glucose calculated from | | | | | | hemoglobin A1c by use of | | | | | | the ADArecommended | | | | | | formula.Testing | | | | | | performed at [facility], [address] | | | | | | [address] [facility], | | | | | | [place] [address] | | | | + + + + + + + + | Specimen | + + | Blood | + + + + + + + | Performing | Address | City/State/Zipcode | Phone Number | | Organization | | | | + + + + + | [facility] | [address] | [place] [address] | [phone] | + + + + + Troponin I (10/14/2018 3:01 AM PDT) + + + + + + | Component | Value | Ref Range | Performed | Pathologist | | | | | At | Signature | + + + + + + | Troponin I | 0.01Comment: 0.04 | 0.00 - 0.04 | [facility] [...] | | | | | | [facility];[address] [place] [address] | | | | | | [address];[place] [address] | | | | + + + + + + + + | Specimen | + + | Blood | + + + + + + + | Performing | Address | City/State/Zipcode | Phone Number | | Organization | | | | + + + + + | [facility] | [address] | [place] [address] | [phone] | + + + + + POC Glucose (10/13/2018 8:58 PM PDT) + + + + + + | Component | Value | Ref Range | Performed | Pathologist | | | | | At | Signature | + + + + + + | Glucose, | 384 (H)Comment: Testing | 65 - 99 mg/dL | [facility] | | | POC | performed at [facility];[address] | | LABORATORY | | | | [address];[place] | | | | | | [address] | | | | + + + + + + + + | Specimen | + + | | + + + + + + + | Performing | Address | City/State/Zipcode | Phone Number | | Organization | | | | + + + + + | [facility] | [address] | [place] [address] | [phone] | + + + + + Troponin I (10/13/2018 8:42 PM PDT) + + + + + + | Component | Value | Ref Range | Performed | Pathologist | | | | | At | Signature | + + + + + + | Troponin I | 0.012Comment: 0.04 | 0.00 - 0.04 | [facility] | | | | ng/mL [...] | | | | | | [facility];[address] [facility] | | | | | | Blvd;[place] [address] | | | | + + + + + + + + | Specimen | + + | Blood | + + + + + + + | Performing | Address | City/State/Zipcode | Phone Number | | Organization | | | | + + + + + | [facility] | [address] | [place] [address] | [phone] | + + + + + POC [...] [facility];[address] | | LABORATORY | | | | [address];[place], [place] | | | | | | [address] | | | | + + + + + + + + | Specimen | + + | | + + + + + + + | Performing | Address | City/State/Zipcode | Phone Number | | Organization | | | | + + + + + | [facility] | [address] | [place] [address] | [phone] | + + + + + XR [...] 0.014Comment: 0.04 | 0.00 - 0.04 | [facility] [...] | | | | | | [facility];[address] [place] [address] | | | | | | [facility];[place] [address] | | | | + + + + + + + + | Specimen | + + | | + + + + + + + | Performing | Address | City/State/Zipcode | Phone Number | | Organization | | | | + + + + + | [facility] | [address] | [place] [address] | [phone] | + + + + + ECG [...] | + +---------+ + + Glucose, Random (10/13/2018 11:47 AM PDT) + + [...] [facility];[address] | | LABORATORY | | | | [address];[place] | | | | | | [address] | | | | + + + + + + + + | Specimen | + + | Blood | + + + + + + + | Performing | Address | City/State/Zipcode | Phone Number | | Organization | | | | + + + + + | [facility] | [address] | [place] [address] | [phone] | + + + + + POC Glucose (10/13/2018 11:38 AM PDT) + + + + + + | Component | Value | Ref Range | Performed | Pathologist | | | | | At | Signature | + + + + + + | Glucose, | >400 (H)Comment: Testing | 65 - 99 mg/dL | [facility] | | | POC | performed at [facility];[address] | | LABORATORY | | | | [address];[place], [place] | | | | | | [address] | | | | + + + + + + + + | Specimen | + + | | + + + + + + + | Performing | Address | City/State/Zipcode | Phone Number | | Organization | | | | + + + + + | [facility] | [address] | [place] [address] | [phone] | + + + + + Troponin I (10/13/2018 10:55 AM PDT) + + + + + + | Component | Value | Ref Range | Performed | Pathologist | | | | | At | Signature | + + + + + + | Troponin I | 0.011Comment: 0.04 | 0.00 - 0.04 | [facility] | | | | ng/mL [...] | | | | | | [facility];[address] [place] [address] | | | | | | Blvd;[place] [address] | | | | + + + + + + + + | Specimen | + + | Blood | + + + + + + + | Performing | Address | City/State/Zipcode | Phone Number | | Organization | | | | + + + + + | [facility] | [address] | [place] [address] | [phone] | + + + + + ECHO [...] [facility];[address] | | LABORATORY | | | | [address];[place], [place] | | | | | | [address] | | | | + + + + + + + + | Specimen | + + | | + + + + + + + | Performing | Address | City/State/Zipcode | Phone Number | | Organization | | | | + + + + + | [facility] | [address] | [place] [address] | [phone] | + + + + + Troponin I (10/13/2018 7:14 AM PDT) + + + + + + | Component | Value | Ref Range | Performed | Pathologist | | | | | At | Signature | + + + + + + | Troponin I | 0.015Comment: 0.04 | 0.00 - 0.04 | [facility] | | | | ng/mL [...] | | | | | | [facility];[address] [facility] | | | | | | Blvd;[place] [address] | | | | + + + + + + + + | Specimen | + + | Blood | + + + + + + + | Performing | Address | City/State/Zipcode | Phone Number | | Organization | | | | + + + + + | [facility] | [address] | [place] [address] | [phone] | + + + + + POC [...] [facility];[address] | | LABORATORY | | | | [address] [facility];[place], [place] | | | | | | [address] | | | | + + + + + + + + | Specimen | + + | | + + + + + + + | Performing | Address | City/State/Zipcode | Phone Number | | Organization | | | | + + + + + | [facility] | [address] | [place] [address] | [phone] | + + + + + Troponin [...] | | | | | | [facility];[address] [facility] | | | | | | [facility];[place] [address] | | | | + + + + + + + + | Specimen | + + | Blood | + + + + + + + | Performing | Address | City/State/Zipcode | Phone Number | | Organization | | | | + + + + + | [facility] | [address] | [place] [address] | [phone] | + + + + + Troponin I (10/12/2018 10:49 PM PDT) + + + + + + | Component | Value | Ref Range | Performed | Pathologist | | | | | At | Signature | + + + + + + | Troponin I | 0.016Comment: 0.04 | 0.00 - 0.04 | [facility] | | | | ng/mL [...] | | | | | | [facility];[address] [facility] | | | | | | Blvd;[place] [address] | | | | + + + + + + + + | Specimen | + + | Blood | + + + + + + + | Performing | Address | City/State/Zipcode | Phone Number | | Organization | | | | + + + + + | [facility] | [address] | [place] [address] | [phone] | + + + + + Glucose, Random (10/12/2018 9:16 PM PDT) + + + + + + | Component | Value | Ref Range | Performed | Pathologist | | | | | At | Signature | + + + + + + | Glucose | 492 (H)Comment: Testing | 65 - 99 mg/dL | [facility] | | | | performed at [facility];[address] | | LABORATORY | | | | [address];[place], [place] | | | | | | [address] | | | | + + + + + + + + | Specimen | + + | Blood | + + + + + + + | Performing | Address | City/State/Zipcode | Phone Number | | Organization | | | | + + + + + | [facility] | [address] | [place] [address] | [phone] | + + + + + POC Glucose (10/12/2018 9:12 PM PDT) + + + + + + | Component | Value | Ref Range | Performed | Pathologist | | | | | At | Signature | + + + + + + | Glucose, | >400 (H)Comment: Testing | 65 - 99 mg/dL | [facility] | | | POC | performed at [facility];[address] | | LABORATORY | | | | [address];[place] | | | | | | [address] | | | | + + + + + + + + | Specimen | + + | | + + + + + + + | Performing | Address | City/State/Zipcode | Phone Number | | Organization | | | | + + + + + | [facility] | [address] | [place] [address] | [phone] | + + + + + Troponin I (10/12/2018 7:01 PM PDT) + + + + + + | Component | Value | Ref Range | Performed | Pathologist | | | | | At | Signature | + + + + + + | Troponin I | 0.018Comment: 0.04 | 0.00 - 0.04 | [facility] | | | | ng/mL [...] | | | | | | [facility];[address] [facility] | | | | | | [facility];[place] [address] | | | | + + + + + + + + | Specimen | + + | Blood | + + + + + + + | Performing | Address | City/State/Zipcode | Phone Number | | Organization | | | | + + + + + | [facility] | [address] | [place] [address] | [phone] | + + + + + POC [...] [facility];[address] | | LABORATORY | | | | [address];[place], [place] | | | | | | [address] | | | | + + + + + + + + | Specimen | + + | | + + + + + + + | Performing | Address | City/State/Zipcode | Phone Number | | Organization | | | | + + + + + | [facility] | [address] [facility] | [place] [address] | [phone] | + + + + + Troponin I (10/12/2018 2:55 PM PDT) + + + + + + | Component | Value | Ref Range | Performed | Pathologist | | | | | At | Signature | + + + + + + | Troponin I | 0.017Comment: 0.04 | 0.00 - 0.04 | [facility] [...] | | | | | | [facility];[address] [facility] | | | | | | [facility];[place] [address] | | | | + + + + + + + + | Specimen | + + | Blood | + + + + + + + | Performing | Address | City/State/Zipcode | Phone Number | | Organization | | | | + + + + + | [facility] | [address] | [place] [address] | [phone] | + + + + + POC Glucose (10/12/2018 2:10 PM PDT) + + + + + + | Component | Value | Ref Range | Performed | Pathologist | | | | | At | Signature | + + + + + + | Glucose, | 370 (H)Comment: Testing | 65 - 99 mg/dL | [facility] | | | POC | performed at [facility];[address] | | LABORATORY | | | | [address];[place] | | | | | | [address] | | | | + + + + + + + + | Specimen | + + | | + + + + + + + | Performing | Address | City/State/Zipcode | Phone Number | | Organization | | | | + + + + + | [facility] | [address] | [place] [address] | [phone] | + + + + + VAS [...] | radiologists in ultrasound consensus criteria. Radiology. 2003 | | | Nov;229(2):340-6. 2002Oct 24. Signed [...] in ultrasound consensus | | criteria. Radiology. 2003 Dec;229(2):340-6. 2002Oct 24. | | | | | | | | Signed by: Irina Ji Richard | | Sign Date/Time: 10/12/2018 2:47 PM | + + + +---------+ + + | Performing | Address | City/State/[facility] | Phone Number | [...] [facility];[address] | | LABORATORY | | | | [address];[place] | | | | | | [address] | | | | + + + + + + + + | Specimen | + + | Blood | + + + + + + + | Performing | Address | City/State/Zipcode | Phone Number | | Organization | | | | + + + + + | [facility] | [address] | [place] [address] | [phone] | + + + + + POC Glucose (10/12/2018 12:37 PM PDT) + + + + + + | Component | Value | Ref Range | Performed | Pathologist | | | | | At | Signature | + + + + + + | Glucose, | >400 (H)Comment: Testing | 65 - 99 mg/dL | [facility] | | | POC | performed at [facility];[address] | | LABORATORY | | | | [address];[place] | | | | | | [address] | | | | + + + + + + + + | Specimen | + + | | + + + + + + + | Performing | Address | City/State/Zipcode | Phone Number | | Organization | | | | + + + + + | [facility] | [address] | [place] [address] | [phone] | + + + + + Troponin I (10/12/2018 11:04 AM PDT) + + + + + + | Component | Value | Ref Range | Performed | Pathologist | | | | | At | Signature | + + + + + + | Troponin I | 0.027Comment: 0.04 | 0.00 - 0.04 | [facility] | | | | ng/mL [...] | | | | | | [facility];[address] [facility] | | | | | | Bl;[place] [address] | | | | + + + + + + + + | Specimen | + + | Blood | + + + + + + + | Performing | Address | City/State/[facility]ode | Phone Number | | Organization | | | | + + + + + | [facility] | [address] | [place] [address] | [phone] | + + + + + POC Glucose (10/12/2018 8:23 AM PDT) + + + + + + | Component | Value | Ref Range | Performed | Pathologist | | | | | At | Signature | + + + + + + | Glucose, | 337 (H)Comment: Testing | 65 - 99 mg/dL | [facility] | | | POC | performed at [facility];[address] | LABORATORY | | | | [address];[place] | | | | | | [id number] | | | | + + + + + + + + | Specimen | + + | | + + + + + + + | Performing | Address | City/State/Zipcode | Phone Number | | Organization | | | | + + + + + | [facility] | [address] | [place] [address] | [phone] | + + + + + POCT [...] 0.023Comment: 0.04 | 0.00 - 0.04 | [facility] [...] | | | | | | [facility] [place];[address] | | [address];[place] [address] | | | | + + + + + + + + | Specimen | + + | Blood | + + + + + + + | Performing | Address | City/State/Zipcode | Phone Number | | Organization | | | | + + + + + | [facility] | [address] | [place] [address] | [phone] | + + + + + Troponin I (10/12/2018 3:27 AM PDT) + + + + + + | Component | Value | Ref Range | Performed | Pathologist | | | | | At | Signature | + + + + + + | Troponin I | 0.034Comment: 0.04 | 0.00 - 0.04 | [facility] [...] | | | | | | [facility] [place];[address] | | | | | | [address];[place] [address] | | | | + + + + + + + + | Specimen | + + | Blood | + + + + + + + | Performing | Address | City/State/Zipcode | Phone Number | | Organization | | | | + + + + + | [facility] | [address] | [place] [address] | [phone] | + + + + + Comprehensive [...] | | | | | performed at [facility], [address] | | | | | | [facility], | | | | | | [place] [address] | | | | + + + + + + + + | Specimen | + + | Blood | + + + + + + + | Performing | Address | City/State/Zipcode | Phone Number | | Organization | | | | + + + + + | [facility] | [address] | [place] [address] | [phone] | + + + + + CBC [...] [facility] | | | | performed at L, [address] | | LABORATORY | | | | [address], | | | | | | [place] [address] | | | | + + + + + + + + | Specimen | + + | Blood | + + + + + + + | Performing | Address | City/State/Zipcode | Phone Number | | Organization | | | | + + + + + | [facility] | [address] | [place] [address] | [phone] | + + + + + Lipid [...] at | | | | | | [facility], [address] [facility] | | | | | | [place] | | | | | | [address] | | | | + + + + + + + + | Specimen | + + | Blood | + + + + + + + | Performing | Address | City/State/Zipcode | Phone Number | | Organization | | | | + + + + + | [facility] | [address] | [place] [address] | [phone] | + + + + + CT [...] | | | edema. Signed by: Irina Atkinson Zachary Sign Date/Time: | | | 10/12/2018 1:04 AM [...] 0.039Comment: 0.04 | 0.00 - 0.04 | [facility] [...] | | | | | | [facility];[address] | | [address];[place] [address] | | | | + + + + + + + + | Specimen | + + | Blood | + + + + + + + | Performing | Address | City/State/Zipcode | Phone Number | | Organization | | | | + + + + + | [facility] | [address] | [place] [address] | [phone] | + + + + + XR [...] 0.04Comment: 0.04 | 0.00 - 0.04 | [facility] [...] | | | | | | [facility];[address];[place] [address] | | | | + + + + + + + + | Specimen | + + | Blood | + + + + + + + | Performing | Address | City/State/Zipcode | Phone Number | | Organization | | | | + + + + + | [facility] | [address] | [place] [address] | [phone] | + + + + + Comprehensive [...] | >60Comment: GFR <60: | >60 | [facility] | | | GFR | [...] [facility] | | | | | | [facility];[place], [place] | | | | | | [address] | | | | + + + + + + + + | Specimen | + + | Blood | + + + + + + + | Performing | Address | City/State/Zipcode | Phone Number | | Organization | | | | + + + + + | [facility] | [address] | [place] [address] | [phone] | + + + + + CBC [...] | | Absolute | performed at [facility];[address] | [address] | LABORATORY | | | | [address];[place] | | | | | | [address] | | | | + + + + + + + + | Specimen | + + | Blood | + + + + + + + | Performing | Address | City/State/Zipcode | Phone Number | | Organization | | | | + + + + + | [facility] | [address] | [place] [address] | [phone] | + + + + + ECG [...] | | | | | ONLY, -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 (851), | | | | | | 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 Simms | | | | | [...] | | | C (101.5 F), Starting Mon10/12/18 | | | | | | | [...] | | | 324 mg, Oral, ONCE, [facility] 10/11/18 | | 19 10:31 | [...] (after last modification) on | | | 10/16/18 at 1700, Give | | | another [...] | | | | | | | 5066-0294 Use NIGHT DOSE for | | | | | | | doses scheduled: HS, 3AM, | | | | | | | Nighttime 1599-2090 If the BG is | | | [...] | | | | | | | 5129-4672 Use NIGHT DOSE for | | | | | | | doses scheduled: HS, 3AM, | | | | | | | Nighttime 1675-2773 If the BG is | | | [...] | | | | AC, NPO, Daytime 9788-7269 Use | | | | | | | NIGHT DOSE for doses scheduled: | | | | | | | HS, 3AM, Nighttime 9219-2086 | | | | | | | [...] | Upper | | Units, Subcutaneous, ONCE, Mon | | PM PDT | | [...] | | | | on Mon10/12/18 at 1600 | | | | | [...] | | | | PRN, Pain, Starting Mon10/12/18 at | | PM PDT | | [...] Sign | | | | | | Mon10/12/18 at 0745, Protect from | | | [...] 1:40 | | | | | ONCE, 10/12/18 at 0140, For 1 | | AM PDT | | | | | dose | | | | | | + +-------+ +--------+---+---+ +---+---+ | | | +---+---+ + +-------+ +--------+---+---+ | nitroglycerin (NITROSTAT) SL | Given | 10/12/19 | 0.4 mg | | | | tablet 0.4 mg 0.4 mg, | | 19 11:25 | | | | | Sublingual, ONCE, [facility] 10/11/18 at | | PM PDT [...]
--- OUTSIDE RECORDS SUMMARY | ~2019-10-12 | XMS | Encounter Summary ---
Demographics + + + | Address | [address] | | | [place] [address] | + + + | Home Phone [...] Sammi Kohler | ECON | [place] [address] | | + + + + + Care Team Providers + +------+ + | Care Aquaculture Worker Name | Role | Phone | [...] | | | EM[facility] | [address] [place], [place] | nausea, vomiting of | | | | [address] | [address] | unspecified type; | | | | [place], [place] | [phone] | Chronic pain | | | | [address] | | syndrome; | | | | [phone] | | Hypertension, | | | | [...] 01/19/152307 Date of Service: 01/19/152306 Status: Signed Smash Piecer: Vadim Bernal RN (Registered Nurse) Dr Bobo notified of patient's current blood pressure. No new orders prior to discharge. Vadim Bernal RN 01/19/152307 onver ivana Transaction, Provider Unknown - 01/19/2015 10:20 PM PST ED Notes by Vadim Bernal RN at 01/19/152219 Author: Vadim Bernal RN Service: (none) Author Type: Registered Nurse Filed: 01/19/152219 Date of Service: 01/19/152219 Status: Signed Smash Piecer: Vadim Bernal RN (Registered Nurse) Patient requesting pain medication. Dr Bobo notified. Vadim Bernal RN 01/19/152219 oAshu larsen MD - 01/19/2015 10:00 PM PSTFormatting of this note might be different from th e original. 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 Authorizing Provider Albuterol Sulfate (VENTOLIN HFA IN) Inhale 2 puffs into the lungs as needed. 108 mcg/act Historical Provider Eqxld-D-Siadeniakyhlx (BEANO) TABS Take 150 Units by mouth [...] 100 mg by mouth nightly. Historical Provider nytfblnew-dpkrpvmq-idtmyfxjd hydroxide-simethicone Take 40 mLs by mouth daily [...] the last 1 2 months. Laboratory Evaluation [facility] CARD PANEL W/O TRP [...] me. Rate: 68. Rhythm: NSR. Ectopy: none. Ashby: nml. Intervals: LVH. Infarct/Ischemia: none. Technique: Good. [...] needed [address] [facility] [address] Discharge Medications: New Prescriptions ONDANSETRON (ZOFRAN-ODT) 8 [...] 01/19/152117 Date of Service: 01/19/152117 Status: Signed Smash Piecer: Vadim Bernal RN (Registered Nurse) Patient vomiting, 200mL light brown emesis noted. Vadim Bernal RN 01/19/152117 onver ivana Transaction, Provider Unknown - 01/19/2015 9:07 PM PST ED Notes by Vadim Bernal RN at 01/19/152106 Author: Vadim Bernal RN Service: (none) Author Type: Registered Nurse Filed: 01/19/152107 Date of Service: 01/19/152106 Status: Signed Smash Piecer: Vadim Bernal RN (Registered Nurse) Patient reports [...] 01/19/152106 Date of Service: 01/19/152106 Status: Signed Smash Piecer: Vadim Bernal RN (Registered Nurse) interactive video technician notified of cardiac monitoring. Vadim Bernal RN 01/19/152106 onver ivana Transaction, Provider Unknown - 01/19/2015 8:57 PM PST ED Notes by Elroy Nowak RN at 01/19/152056 Author: Elroy Nowak RN Service: (none) Author Type: Registered Nurse Filed: 01/19/152056 Date of Service: 01/19/152056 Status: Signed Smash Piecer: Elroy Nowak RN (Registered Nurse) Pt now [...] | | | | | | [facility], | | | | | | [place] [address] | | | | | | [phone] | | | | | | | [...] | | | | | [place] [address] | | | | + + + + + + | Non- | 5.60Comment: Testing | 4.20 - 5.70 | EXTERNAL | | | Red Blood | performed at [facility];[address] | M/uL | LAB | | | Cells | [address];[place] | | | | | Counted | [address] | | | | + + + + + + | Hemoglobin | 13.4Comment: Testing | 13.2 - 17.0 | EXTERNAL | | | | performed at [facility];[address] | g/dL | LAB | | | | [address];[place] | | | | | | [address] | | | | + + + + + + | Hematocrit, | 41.9Comment: Testing | 39.0 - 50.0 % | EXTERNAL | | | POC | performed at [facility];[address] | | LAB | | | | [address];[place] | | | | | | [address] | | | | + + + + + + | MCV | 74.8 (L)Comment: Testing | 80.0 - 100.0 fl | EXTERNAL | | | | performed at [facility];[address] | | LAB | | | | [address];[place] | | | | | | [address] | | | | + + + + + + | MCH | 24.0 (L)Comment: Testing | 27.0 - 34.0 pg | EXTERNAL | | | | performed at [facility];[address] | | LAB | | | | [address];[place] | | | | | | [address] | | | | + + + + + + | MCHC | 32.1Comment: Testing | 32.0 - 35.5 | EXTERNAL | | | | performed at [facility];[address] | g/dL | LAB | | | | [address];[place] | | | | | | [address] | | | | + + + + + + | RDW-CV | 42.4Comment: Testing | 37 - 53 fl | EXTERNAL | | | | performed at [facility];[address] | | LAB | | | | [address];[place] | | | | | | [address] | | | | + + + + + + | Platelet | 304Comment: Testing | 150 - 400 K/uL | EXTERNAL | | | Count | performed at [facility];[address] | | LAB | | | Plasma | [address];[place] | | | | | | [address] | | | | + + + + + + | MPV | 7.2Comment: Testing | fl | EXTERNAL | | | | performed at [facility];[address] | | LAB | | | | [address];[place] | | | | | | [address] | | | | + + + + + + | Differentia | AUTOMATEDComment: | | EXTERNAL | | | l Type | Testing performed at | | LAB | | | | [facility];[address] | | | | | | [address];[place] [address] | | | | + + + [...] [place] | | | | | | [address] | | | | + + + + + + | % Monocytes | 8.93Comment: Testing | % | EXTERNAL | | | | performed at [facility];[address] | | LAB | | | | [address];[place] | | | | | | [address] | | | | + + + + + + | % | 3.05Comment: Testing | % | EXTERNAL | | | Eosinophils | performed at [facility];[address] | | LAB | | | | [address];[place] | | | | | | [address] | | | | + + + + + + | % Basophils | 1.47Comment: Testing | % | EXTERNAL | | | | performed at [facility];[address] | | LAB | | | | [address];[place] | | | | | | [address] | | | | + + + + + + | Absolute | 6.84Comment: Testing | 1.90 - 7.40 | EXTERNAL | | | Segmented | performed at [facility];[address] | K/uL | LAB | | | Neutrophils | [address];[place] | | | | | | [address] | | | | + + + + + + | Absolute | 4.07 (H)Comment: Testing | 1.00 - 3.90 | EXTERNAL | | | Lymphocytes | performed at [facility];[address] | K/uL | LAB | | | | [address];[place] | | | | | | [address] | | | | + + + + + + | Absolute | 1.13 (H)Comment: Testing | 0.00 - 0.80 | EXTERNAL | | | Monocytes | performed at [facility];[address] | K/uL | LAB | | | | [address];[place] | | | | | | [address] | | | | + + + + + + | Absolute | 0.38Comment: Testing | 0.00 - 0.50 | EXTERNAL | | | Eosinophils | performed at [facility];[address] | K/uL | LAB | | | | [address];[place] | | | | | | [address] | | | | + + + + + + | Absolute | 0.19 (H)Comment: Testing | 0.00 - 0.10 | EXTERNAL | | | Basophils | performed at [facility];[address] | K/uL | LAB | | | | [address];[place] | | | | | | [address] | | | | + + + + + + | RBC | 1+Comment: | | EXTERNAL | | | Morphology | ANISO1+HYPO1+MICRONORMAL | | LAB | | | | PLT MORPHTesting | | | | | | performed at [facility];[address] | | | | | | [address];[place] | | | | | | [address] | | | | | |MICRO | | | | | |NORMAL PLT MORPH | | | | | |Testing performed at [facility];[address];[place] [address] | | | | | | | | | | + + + + + + | Na | 139Comment: Testing | 135 - 143 | EXTERNAL | | | | performed at [facility];888 | mmol/L | LAB | | | | [address];[place] | | | | | | [address] | | | | + + + + + + | K | 3.7Comment: SLT | 3.5 - 4.9 | EXTERNAL | | | | HEMOLYSISTesting | mmol/L | LAB | | | | performed at [facility];[address] | | | | | | [address];[place] | | | | | | [address] | | | | + + + + + + | Cl | 101Comment: Testing | 99 - 109 mmol/L | EXTERNAL | | | | performed at [facility];[address] | | LAB | | | | [address];[place] | | | | | | [address] | | | | + + + + + + | CO2 | 28Comment: Testing | 23 - 32 mmol/L | EXTERNAL | | | | performed at [facility];[address] | | LAB | | | | [address];[place] | | | | | | [address] | | | | + + + + + + | Anion Gap | 13Comment: Testing | 5 - 20 mmol/L | EXTERNAL | | | | performed at [facility];[address] | | LAB | | | | [address];[place] | | | | | | [address] | | | | + + + + + + | Glucose, | 194 (H)Comment: Testing | 65 - 99 mg/dL | EXTERNAL | | | Fasting | performed at [facility];[address] | | LAB | | | | [address];[place] | | | | | | [address] | | | | + + + + + + | BUN | 17Comment: Testing | 8 - 25 mg/dL | EXTERNAL | | | | performed at [facility];[address] | | LAB | | | | [address];[place] | | | | | | [address] | | | | + + + + + + | Creatinine | 1.1Comment: Testing | 0.70 - 1.30 | EXTERNAL | | | | performed at [facility];888 | mg/dL | LAB | | | | [address];[place] | | | | | | [address] | | | | + + + + + + | BUN/Creatin | 16Comment: Testing | | EXTERNAL | | | ine Ratio | performed at [facility];[address] | | LAB | | | | [address];[place] | | | | | | [address] | | | | + + + + + + | Calcium | 8.2 (L)Comment: Testing | 8.5 - 10.5 | EXTERNAL | | | | performed at [facility];888 | mg/dL | LAB | | | | [address];[place] | | | | | | [address] | | | | + + + + + + | Protein, | 7.6Comment: Testing | 6.3 - 8.2 g/dL | EXTERNAL | | | Total | performed at [facility];[address] | | LAB | | | | [address];[place] | | | | | | [address] | | | | + + + + + + | Albumin | 3.2 (L)Comment: Testing | 3.3 - 4.8 g/dL | EXTERNAL | | | | performed at [facility];[address] | | LAB | | | | [address];[place] | | | | | | [address] | | | | + + + + + + | Globulin | 4.4Comment: Testing | 1.3 - 4.9 g/dL | EXTERNAL | | | | performed at [facility];[address] | | LAB | | | | [address];[place] | | | | | | [address] | | | | + + + + + + | A/G Ratio | 0.7 (L)Comment: Testing | 1.0 - 2.4 | EXTERNAL | | | | performed at [facility];[address] | | LAB | | | | [address];[place] | | | | | | [address] | | | | + + + + + + | Bilirubin | 0.2Comment: Testing | 0.1 - 1.5 mg/dL | EXTERNAL | | | Total | performed at [facility];[address] | | LAB | | | | [address];[place] | | | | | | [address] | | | | + + + + + + | ALP, | 165 (H)Comment: Testing | 35 - 115 U/L | EXTERNAL | | | External | performed at [facility];[address] | | LAB | | | | [address];[place] | | | | | | [address] | | | | + + + + + + | AST | 23Comment: SLT | 10 - 45 U/L | EXTERNAL | | | | HEMOLYSISTesting | | LAB | | | | performed at [facility];[address] | | | | | | [address];[place] | | | | | | [address] | | | | + + + + + + | ALT | 29Comment: Testing | 10 - 65 U/L | EXTERNAL | | | | performed at [facility];[address] | | LAB | | | | [address];[place] | | | | | | [address] | | | | + + + [...] | at [facility];[address] [facility] | | | | | | [place] [address] | | | | + + + + + + | CK, Total | 107Comment: Testing | 55 - 400 U/L | EXTERNAL | | | | performed at [facility];8 | | LAB | | | | [...] [place] | | | | | | [address] | | | | + + + + + + | aPTT, | 31Comment: Testing | 23 - 32 seconds | EXTERNAL | | | Patient | performed at [facility];888 | | LAB | | | | [address];[place] | | | | | | [address] | | | | + + + + + + | CK-MB | 2.6Comment: Testing | 0.5 - 3.6 ng/mL | EXTERNAL | | | | performed at [facility];888 | | LAB | | | | [address];[place] | | | | | | [address] | | | | + + + [...] | performed at [facility] | | | | | | [facility] [place], [place] | | | | | | [address] | | | | + + + [...] | LAB | | | | [address];[place] | | | | | | [address] [...] | | | | | ONLY, -COMPUTER (872), | | | | | | editor city [place] | | | | | [...]
--- OUTSIDE RECORDS SUMMARY | ~2019-10-12 | XMS | Encounter Summary ---
Demographics + + + | Address | [address] | | | [place] [address] | + + + | Home Phone [...] Sammi Kohler | ECON | [place] [address] | | + + + + + Care Team Providers + +------+ + | Care Reforestation Worker Name | Role | Phone | + +------+ + | Mireya Pack NP | PCP | | + +------+ + Encounter Details +--------+ + + + + | Date | Type | Department | Care Team | Description | +--------+ + + + + | 06/03/ | Virtual | [facility] | Mireya Pack, | Essential | | 2020 | Office | [facility] [address] | RAMP ATTENDANT [address] | hypertension | | | Visit | [address] | [address] [place], | (Primary Dx); Type 2 | | | | [place], [place] | [place] [address] | diabetes mellitus | | | | [address] | [phone] | with diabetic | | | | [phone] | | polyneuropathy, with | | | [...] this encounter Progress Mireya Pérez NP - 06/04/2019 4:00 PM PDTFormatting of this note might be different fr om the original. Subjective: Patient ID: Kevyn Guzman is a 63 y.o. male You have chosen to receive care through the use of telemedicine. Telemedicine enables [facility] care providers at different locations to provide [...] agrees to telephone/virtual appointment, Time appointment started: 1615 Significant history of: Past Medical History: Diagnosis [...] Procedure: COLONOSCOPY; Surgeon: Howie Gibson MD; Location: [facility]; Service: Gastroen terology; Laterality: N/A; [...] FROZEN SECTION; Surgeon: Sy murcia MD; Location: [facility]; Service: Plastics; Laterality: Left; forearm SKIN BIOPSY SKIN CANCER EXCISION Left 10/10/2012 Procedure: EXCISION - SKIN CANCER; Surgeon: Sy Fierro MD; Location: [facility]; Service: Plastics; Laterality: Left; upper arm and upper back w/frozen section UPPER GASTROINTESTINAL ENDOSCOPY UPPER GASTROINTESTINAL ENDOSCOPY 03/03/2013 Procedure: ESOPHAGOGASTRODUODENOSCOPY; Surgeon: Howie Gibson MD; Location: [facility]; Se rvice: Gastroenterology; Laterality: N/A; [...] visit. HPI Patient reports that he is taking medications and insulin per instructions and having good control of BS; has not been able to check BP because machine broke. Patient's medications, allergies, past medical, surgical, social and family histories were obtained and reviewed as appropriate. Review of Systems Objective: Physical Exam Lab Results Component Value Date NA 139 05/16/2019 CL 107 05/16/2019 K 4.1 05/16/2019 CO2 26 05/16/2019 BUN 19 05/16/2019 EGFR >60 05/16/2019 GLUF 292 (H) 09/21/2018 GLOB 2.7 09/21/2018 BILITOT 0.5 09/21/2018 AST 20 05/16/2019 ALT 24 05/16/2019 Lab Results Component Value Date WBC 10.82 05/18/2019 HGB 11.4 (L) 05/18/2019 HCT 34.1 (L) 05/18/2019 MCV 85.0 05/18/2019 PLT 207 05/18/2019 Lab Results Component Value Date CHOL 182 [...] 9.3 (H) 05/17/2019 No components found for: [id number], PTHINT No results found for: [id number] Lab Results Component Value Date TSH 2.780 03/27/2019 No results found for: IRON, TIBC, FERRITIN . No results found for: FERRITIN Assessment/Plan: Diagnoses and all orders for this visit: Essential hypertension - Blood Pressure KIT; Dispense as insurance allows to check Blood Pressure one time ila ly each day. Type 2 diabetes mellitus with diabetic polyneuropathy, with long-term current use of insuli n (HCC) - Controlled. Continue current management Time appointment completed: 1430 Electronically signed by Mireya Pack NP at 020 10:10 PM Myriam Mcconnell, Fishing Instructor - 06/04/2019 4:00 PM PDTVirtual/Telepho louisa consent: Yes. Med changes since last visit/Pharmacy: no med changes, using RX pharmacy in [place]. MyChart Active: Pending. Vital signs: does not take any BP. Concerns to address: Patient states doing well, when I asked whether he takes VS at home, he said no but is requ esting a BP machine. Pending RX. Review of Systems Constitutional: Negative for activity change, appetite change, chills, diaphoresis, fever a nd unexpected weight change. Respiratory: Negative for cough and shortness of breath. Cardiovascular: Negative for chest pain and leg swelling. Gastrointestinal: Negative for abdominal pain and blood in stool. Genitourinary: Positive for difficulty urinating and dysuria. Neurological: Negative for syncope, speech difficulty, weakness, numbness and headaches. Yeseniacuharmeet ented in this encounter Plan of Treatment +--------+ + + + + | Date | Type | Specialty | Care Team | Description | +--------+ + + + + | 10/16/ | Anti-coag | Anticoagulation | Brittany Zaragoza | | | 2019 | visit | | [address] | | | | | | [place], | | | | | | [place] [address] | | | | | | [phone] | | | | | | | [...]
--- OUTSIDE RECORDS SUMMARY | ~2019-10-12 | XMS | Encounter Summary ---
Demographics + + + | Address | [address] | | | [place] [address] | + + + | Home Phone [...] | Sammi Kohler | ECON | [place] [address] | | + + + + + Care Team Providers + +------+ + | Care Housing Management Representative Name | Role | Phone | + +------+ + PCP | Unavailable | + +------+ + Encounter Details +--------+ + + + + | Date | Type | Department | Care Team | Description | +--------+ + + + + | 07/08/ | [facility] | [facility] | Norah Duron | Facial droop; | | 2013 - | Encounter | [facility] | Osmar Andrea MD [address] | Dysarthria; | | | | CLINICAL DECISION | [address] | Left-sided weakness | | 07/09/ | | [address] | [place] [address] | | | 2013 | | [place], [place] | [phone] | | | | | [address] | | | | | | [phone] | | | +--------+ + + + [...] Date of Service: 07/09/13904 Status: Signed Director Informatics: Marie Gann MD (Physician) Related Notes: Original Note by Marie Gann MD (Physician) filed at 07/09/13 0909 [facility] Service: Hospitalist Physician Discharge Summary Patient [...] any significant left facial droop in the [facility] department and neurology consult by [...] living Follow up: Edin Gutiérrez DO [address] [facility] [address] Schedule an appointment as soon as possible for a visit in 3 days Ness Guan MD [address] [place] [id number] Schedule an appointment as soon as possible [...] injection Refills: 0 Commonly known as: LANTUS douidkxid-hfhcgcdv-ylhephuxh hydroxide-simethicone Refills: 0 lisinopril 40 MG tablet [...] summary. This entry has been created using [employer] Speech Recognition software and [employer]. The entry has been reviewed and there [...] of Service: 07/09/13 1038 Status: Signed Director Informatics: Nir Faith RN (Registered Nurse) Faxed MD signed AVS and Face Sheet to [facility]. onver ivana Transaction, Provider Unknown - 07/09/2013 10:25 AM PDT Nurse Progress Note by Brunilda Oakley at 07/09/13 1025 Author: Brunilda Oakley Service: (none) Author Type: Nurse Hide Trimmer Filed: 07/09/13 1027 Date of Service: 07/09/13 1025 Status: Signed Director Informatics: Brunilda Oakley (Nurse Hide Trimmer) Pt received and stated understanding of discharge instructions. Pt was wheeled [facility] on wheelchair. Family friend picked up the patient. Brunilda Oakley onver ivana Transaction, Provider Unknown - 07/09/2013 9:43 AM PDT Case Management by Nir Faith RN at 07/09/13942 Author: Nir Faith RN Service: (none) Author Type: Registered Nurse Filed: 07/09/13943 Date of Service: 07/09/13942 Status: Signed Director Informatics: Nir Faiht RN (Registered Nurse) Spoke with [facility] who stated they would take pt back, [facility]. Pt made the transportation arrangement, apparently had an appointment for 10 AM. [facility] states pt makes own appts and arranges for own transportation. onver ivana Transaction, Provider Unknown - 07/09/2013 9:30 AM PDT Nurse Progress Note by Nadeen Echavarria RN at 07/09/13929 Author: Nadeen Echavarria RN Service: (none) Author Type: Registered Nurse Filed: 07/09/13958 Date of Service: 07/09/13929 Status: Signed Director Informatics: Nadeen Echavarria RN (Registered Nurse) Pt to vehicle via w/c vickie Worley Nurse Hide Trimmer, for discharge back to [facility]. [facility] sent vehicle to transport him. Pt stable and voices understanding of change in medications a nd of discharge instructions. Personal belongings with pt. onver ivana Transaction, Provider Unknown - 07/09/2013 9:00 AM PDT Nurse Progress Note by Nadeen Echavarria RN at 07/09/13899 Author: Nadeen Echavarria RN Service: (none) Author Type: Registered Nurse Filed: 07/09/13928 Date of Service: 07/09/13899 Status: Signed Director Informatics: Nadeen Echavarria RN (Registered Nurse) Dr Sanjuanita love. Discharge orders received. onver ivana Transaction, Provider Unknown - 07/09/2013 8:17 AM PDT Case Management by Nir Faith RN at 07/09/13816 Author: Nir Faith RN Service: (none) Author Type: Registered Nurse Filed: 07/09/13819 Date of Service: 07/09/13816 Status: Signed Director Informatics: Nir Faith RN (Registered Nurse) 07/09/13814 Discharge Planning Evaluation Admitting Diagnosis TIA r/o CVA Readmission Yes-greater than 30 days;Other (comment) (numerous admissions) Living Arrangements Other (Comment) ([place], [facility]) Support Systems Family members Type of Residence Assisted living Steps to enter (no) Bathrooms on 1st Floor 1-Full Independent with ADL's Yes Independent with Mobility Yes Home Care Services Yes (from [place]) Mental Status Other (comment) (Developmental delay) Prior functional status independent physically Anticipated Discharge Plan Post Acute Care Needs None at this time Discussed discharge planning with RN, Pt is a 57 y.o., male who lives in an [facility]. Patient's PCP is: EDIN GUTIÉRREZ Patient's insurance: Medicare/Medicaid Coverage concerns: no Medication coverage/concerns: no Community resources utilized / needed: no Assistance in transportation: yes through [facility] Identification of any specific education / training: TBD Barriers to Discharge / Alternative housing needed: no Anticipated DCP: Back to [facility] to transport NIR FAITH RN CASE MANAGER onver ivana [place] Provider Unknown - 07/09/2013 8:15 AM PDT Therapy Progress Note by Norah Jenkins PT at 07/09/13814 Author: Norah Jenkins PT Service: (none) Author Type: Physical Therapist Filed: 07/09/13928 Date of Service: 07/09/13814 Status: Addendum Director Informatics: Norah Jenkins PT (Physical Therapist) Related Notes: [...] s afe to d/c back home to [place]. Pt. encouraged to use [facility] since he [...] equipment needs met) Prior Function Level of [place] Modified independent with functional mobility;Modified independent wi [...] Rationale: Scored using [employer] [place] onver ivana Rodríguezaction, Provider Unknown - 07/09/2013 7:50 AM PDT Therapy Progress Note by TORY Sorenson at 07/09/13 0750 Author: TORY Sorenson Service: (none) Author Type: Occupational Therapist Filed: 07/09/13 4975 Date of Service: 07/09/13749 Status: Signed Director Informatics: TORY Sorenson (Occupational Therapist) 07/09/13 0754 Precautions Other Precautions fall precautions Home Environment Type of Home Assisted living Home Exterior Layout Entry steps none Home Interior Layout Lives on main level with bedroom/bathroom Bathroom Shower/Tub Walk-in shower Bathroom Toilet Standard Bathroom Equipment Shower chair;Grab bars in shower/bath Home Equipment Cane single point;Walker front wheeled Additional Comments Pt is 57 y.o male with developmental delay who lives at [facility] (Per RN). Per pt report he [...] L O2 here. Prior Function Level of [place] Modified independent with functional mobility;Independent with ADLs; [...] RPH Service: (none) Author Type: Pharmacist Filed: 06/04/19 37 Date of Service: 07/09/1337 Status: Signed Director Informatics: Ema Walker RPH (Pharmacist) Clinical Pharmacy Note: Renal Monitoring Norah Gr 57 y.o. male Height: 180.3 cm Weight: 107 kg CREATININE: 1.16 (07/08/13 1415) Estimated creatinine clearance - Cockcroft-Gault CrCl: 86.4 mL/min Pharmacy dosing for renal function per Dr. Duron. Currently, there are no medications needing to [...] Date of Service: 07/08/132034 Status: Signed Director Informatics: Ema Walker RPH (Pharmacist) Clinical Pharmacy Note - Therapeutic Intervention: Norah Gr 57 y.o. male Non-formulary Medication: Dulera 100/5 1-2 inhalations BID. Therapeutic Interchange: Advair 250/50 1 inhalation BID. Therapeutic interchange performed by pharmacy per P & T committee. Ema Walker PharmD 07/08/2013 8:34 PM onver ivana Transaction, Provider Unknown - 07/08/2013 2:58 PM PDT Case Management by QUINN Lea at 07/08/13 8432 Author: QUINN Lea Service: (none) Author Type: Fitter Mechanic Filed: 07/08/13 1506 Date of Service: 07/08/13 7458 Status: Signed Director Informatics: QUINN Lea (Fitter Mechanic) [facility] alert rec'd. Pt is enrolled in the [facility]. Physician - ple ase review pt's care plan guidelines. Pt w/ 27 ED visits in last 12 months. 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/10/2013 HYDROCODON-ACETAMINOPHEN 5-325 15.000 3 [id number] 06/05/2013 [id number] N [id number] 03/06/2013 LORAZEPAM 0.5 MG TABLET 30.000 9 [id number] 03/06/2013 [id number] N [id number] 03/05/2013 HYDROCODON-ACETAMINOPHEN 5-325 30.000 3 [id number] 03/05/2013 [id number] N [id number] 02/27/2013 HYDROCODON-ACETAMINOPHEN 5-325 10.000 3 [id number] 02/27/2013 [id number] N [id number] 10/10/2012 HYDROCODON-ACETAMINOPH 7.5-750 20.000 5 [id number] 10/10/2012 [id number] N [id number] 09/14/2012 OXYCODONE-ACETAMINOPHEN 5-325 60.000 5 [id number] 09/14/2012 [id number] N [id number] 09/05/2012 HYDROCODON-ACETAMINOPHEN 5-325 12.000 3 [id number] 09/05/2012 [id number] N [id number] 08/19/2012 HYDROCODON-ACETAMINOPHEN 5-500 24.000 6 [id number] 08/15/2012 [id number] N [id number] 08/16/2012 HYDROCODON-ACETAMINOPHEN 5-500 24.000 6 [id number] 08/16/2012 [id number] N [id number] 09/14/2012 OXYCODONE-ACETAMINOPHEN 5-325 60.000 5 [id number] 09/14/2012 [id number] N [id number] 03/05/2013 HYDROCODON-ACETAMINOPHEN 5-325 30.000 7 [id number] 03/05/2013 [id number] N [id number] Starla Lewis docume nted in this encounter H&P Notes Norah Duron MD - 07/08/2013 6:21 PM PDTFormatting of this note might be diff erent from the original. H&P by Norah Duron MD at 07/08/131820 Author: Norah Duron MD Service: Hospitalist Author Type: Physician Filed: 07/08/13 194 Date of Service: 07/08/131820 Status: Signed Director Informatics: Norah Duron MD (Physician) [facility] Service: Hospitalist Admission History & Physical Date of Admission: 07/08/2013 Requesting Physician: Dr. Mae Hospitalist Reason for Admission: Left facial droop [...] ulcers. He had this nodule removed in [facility], 07/03/2013 had laparoscopic umbilical hernia repair and was discharged back to his [facility], with pain medication. 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 Other recomm endations for management of this patient will be dependent upon the patient's clinical cours e. Discharge plans when stable and improved in 24 to 48 hours. Disposition: Observe in CDU Dictation software, Asetek, used which may contain error for similar sounding words even af ter review. Personal communication requested for any clarification. Code Status: Full code Primary Care Physician: EDIN Duron MD 07/08/2013 documented in this encounter Consult Notes Ness Guan MD - 07/09/2013 8:35 AM PDTFormatting of this note might be different f rom the original. Consults by Ness Guan MD at 07/09/13 0835 Author: Ness Guan MD Service: Neurology Author Type: Physician Filed: 07/09/13 1441 Date of Service: 07/09/13 0835 Status: Signed Director Informatics: Ness Guan MD (Physician) Related Notes: Original Note by Ness Guan MD (Physician) filed at 07/09/13 1003 Consult Orders: 1. 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 Denies prior strokes or [place]. REVIEW OF SYSTEMS The patient reports no [...] Inject 67 Units into the skin nightly. kbgwangys-htcratds-wdfphxhxf hydroxide-simethicone Take 40 mLs by mouth daily [...] delay who lives at an adult family home/[facility] who was brought to the ER yesterday [...] to have a discussi on with his prep manager to see if he needs anticoagulation and [...] Date of Service: 07/08/131920 Status: Signed Director Informatics: Onel Kenney RN (Registered Nurse) Assumed care of pt from Yojana Andrea RN. Pt resting in bed with food tray at bedside. Swallow eval performed prior to allowing pt to eat. Call light within reach, all needs met at this t silva. Onel Kenney RN 07/08/131921 Kristian Vinson MD - 07/08/2013 2:29 PM PDT ED Provider Notes by Kristian Mae MD at 07/08/13 1352 Author: Kristian Mae MD Service: (none) Author Type: Physician Filed: 07/09/13 1230 Date of Service: 07/08/13 3748 Status: Signed Director Informatics: Kristian Mae MD (Physician) [facility] Department of Emergency Medicine 2:29 PM History of Present Illness Patient Identification Norah Gr is a 57 y.o. male. Patient information was obtained from patient. History/Exam limitations: none. Patient presented to the Emergency Department by: [facility] 1723 Chief Complaint Chief Complaint Patient presents [...] severity. 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 182 Discussed case with , hospitalist, who accepts [...] Reviewed Old medical records. Nursing notes. Previous [facility] ED visits for unrelated complaints. Laboratory Evaluation Results Procedure Component Value Ref Range Date/Time Urine Microscopic [[id number]] (Abnormal) Collected:07/08/13 1748 Order Status:Completed Updated:07/08/13 180 Specimen Information:Urine / Urine, Clean Catch WBC 0-2 0 - 5 /hpf RBC 0-2 0 - 2 /hpf EPITHELIAL 1-5 /lpf BACTERIA 1+ (A) NONE SEEN Crystals 1+ /hpf POC clinitek 10 [[id number]] (Abnormal) Collected:07/08/13 1741 Order Status:Completed Updated:07/08/13 1744 [...] WBC, UA NEGATIVE NEGATIVE Lactic acid, plasma [[id number]] Collected:07/08/13 1530 Order Status:Completed Updated:07/08/13 1617 Specimen Information:Blood LACTIC ACID 0.8 0.4 - 2.0 mmol/L Sedimentation Rate (ESR) [[id number]] Collected:07/08/13 1415 Order Status:Completed Updated:06/02/14 1539 Specimen Information:Blood ESR 14 0 - 20 mm/Hr Complete Metabolic Panel [[id number]] (Abnormal) Collected:07/08/131414 Order Status:Completed Updated:07/08/131514 Specimen Information:Blood [...] U/L EGFR >60 >60 mL/min/1.73m2 C-Reactive Protein [[id number]] (Abnormal) Collected:07/08/131414 Order Status:Completed Updated:07/08/131514 Specimen Information:Blood CRP 2.3 (H) <0.5 mg/dL Protime-INR [[id number]] Collected:07/08/131414 Order Status:Completed Updated:07/08/131510 Specimen Information:Blood INR 1.0 PTT [[id number]] Collected:07/08/131414 Order Status:Completed Updated:07/08/131510 Specimen Information:Blood APTT 25 23 - 32 seconds CBC w Auto Diff [[id number]] (Abnormal) Collected:07/08/131414 Order Status:Completed Updated:07/08/131501 Specimen Information:Blood [...] 0 - 0.1 K/uL POC cardiac troponin [[id number]] Collected:07/08/13 1436 Order Status:Completed Updated:07/08/13 1501 POC CARDIAC TROPONIN 0.00 0.00 - 0.10 ng/mL POCT glucose [[id number]] Order Status:Sent POC creatinine [[id number]] Collected:07/08/13 1434 Order Status:Completed Updated:07/08/13 1439 POC [...] cerebral arterial system with absence of the paver layer ior communicating arteries which would tend to [...] department protocol without contrast. A 3D noncontrast bccx-ct-qmeqqu M RA sequence was acquired through the [...] artery: Normal. Left posterior cerebral artery: Normal. [place]: Anterior communicating artery: Normal. The [...] of 63 Normal sinus rhythm Intervals normal [place] normal ST segments T waves are normal [...] visit in 3 days [address] [facility] [address] Ness Guan MD Schedule an appointment as soon as possible for a visit in [address] weeks [address] [place] [address] Discharge Medications: New Prescriptions No new medications [...] ED Notes by Roxana Walters RN at 07/08/131425 Author: Roxana Walters RN Service: (none) Author Type: Registered Nurse Filed: 07/08/131429 Date of Service: 07/08/131425 Status: Signed Director Informatics: Roxana Walters RN (Registered Nurse) at bedside. Roxana Walters RN 07/08/13 143 onver ivana Transaction, Provider Unknown - 07/08/2013 2:23 PM PDT ED Notes by Roxana Walters RN at 07/08/131422 Author: Roxana Walters RN Service: (none) Author Type: Registered Nurse Filed: 07/08/13 142 Date of Service: 07/08/131422 Status: Signed Director Informatics: Roxana Walters RN (Registered Nurse) Bed:19
Expected date:
Expected time:
Means of arrival:
Comments:
1723 onver ivana Transaction, Provider Unknown - 07/08/2013 2:19 PM PDT ED Notes by Tatum Pratt RN at 07/08/13 1419 Author: Tatum Pratt RN Service: (none) Author Type: Registered Nurse Filed: 07/08/13 1420 Date of Service: 07/08/13 1419 Status: Signed Director Informatics: Tatum rPatt RN (Registered Nurse) Pt having increased confusion, feels like his speech is worse than normal, hx of speech imp ediment. 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 Tatum Pratt RN 07/08/13 1420 docume nted in this encounter Miscellaneous Notes Plan of Care - Conversion Transaction, Provider Unknown - 07/08/2013 9:00 PM PDT Plan of Care by Nola Sanchez RN at 07/08/132099 Author: Nola Sanchez RN Service: (none) Author Type: Registered Nurse Filed: 07/09/13 0503 Date of Service: 07/08/132099 Status: Signed Director Informatics: Nola Sanchez RN (Registered Nurse) Problem: Pain [...] kauffmaned in this encounter Plan of Treatment +--------+ + + + + | Date | Type | Specialty | Care Team | Description | +--------+ + + + + | 10/16/ | Anti-coag | Anticoagulation | Brittany Zaragoza | | | 2019 | visit | | [address] | | | | | | [place], | | | | | | [place] [address] | | | | | | [phone] | | | | | | | [...] | | | | performed at [facility], [address] | | LAB | | | | [address], | | | | | | [place] [address] | | | | + + + + + + | Clarity, | CLEARComment: Testing | | EXTERNAL | | | Urine | performed at [facility], [address] | | LAB | | | | [address], | | | | | | [place] [address] | | | | + + + + + + | Specific | 1.021Comment: Testing | 1.002 - 1.030 | EXTERNAL | | | [place], | performed at [facility], [address] | | LAB | | | Urine | [address], | | | | | | [place] [address] | | | | + + + + + + | Leukocyte | NEGATIVEComment: | | EXTERNAL | | | Esterase, | Testing performed at | | LAB | | | Urine | [facility], [address] | | | | | | [place] | | | | | | [address] | | | | + + + + + + | Nitrite, | NEGATIVEComment: Testing | | EXTERNAL | | | Urine | performed at [facility], [address] | | LAB | | | | [address], | | | | | | [place] [address] | | | | + + + + + + | Urobilinoge | 1.0Comment: Testing | mg/dL | EXTERNAL | | | n, Urine | performed at [facility], [address] | | LAB | | | | [address], | | | | | | [place] [address] | | | | + + + + + + | Protein, | NEGATIVEComment: Testing | mg/dL | EXTERNAL | | | Urine | performed at [facility], [address] | | LAB | | | | [address], | | | | | | [place] [address] | | | | + + + + + + | pH, Urine | 6.5Comment: Testing | 5.0 - 8.0 | EXTERNAL | | | | performed at [facility], [address] | | LAB | | | | [address], | | | | | | [place] [address] | | | | + + + + + + | Blood, | NEGATIVEComment: Testing | | EXTERNAL | | | Urine | performed at [facility], [address] | | LAB | | | | [address], | | | | | | [place] [address] | | | | + + + + + + | Ketones | NEGATIVEComment: Testing | mg/dL | EXTERNAL | | | | performed at [facility], [address] | | LAB | | | | [address], | | | | | | [place] [address] | | | | + + + + + + | Bilirubin, | NEGATIVEComment: Testing | | EXTERNAL | | | Urine | performed at [facility], [address] | | LAB | | | | [address], | | | | | | [place] [address] | | | | + + + + + + | Glucose, | NEGATIVEComment: Testing | mg/dL | EXTERNAL | | | Urine | performed at [facility], [address] | | LAB | | | | [address], | | | | | | [place] [address] | | | | + + + [...] | | Fingerstick | performed at [facility] | | LAB | | | | [address];[place], [place] | | | | | | [address] | | | | + + + [...] | | | | | [place] [address] | | | | + + + + + + | Non- | 4.93Comment: Testing | 4.20 - 5.70 | EXTERNAL | | | Red Blood | performed at [facility], [address] | M/uL | LAB | | | Cells | [address], | | | | | Counted | [place] [address] | | | | + + + + + + | Hemoglobin | 13.1 (L)Comment: Testing | 13.2 - 17.0 | EXTERNAL | | | | performed at [facility], [address] | g/dL | LAB | | | | [address], | | | | | | [place] [address] | | | | + + + + + + | Hematocrit, | 40.0Comment: Testing | 39.0 - 50.0 % | EXTERNAL | | | POC | performed at [facility], [address] | | LAB | | | | [address], | | | | | | [place] [address] | | | | + + + + + + | MCV | 81.1Comment: Testing | 80.0 - 100.0 fl | EXTERNAL | | | | performed at [facility], [address] | | LAB | | | | [address], | | | | | | [place] [address] | | | | + + + + + + | MCH | 26.6 (L)Comment: Testing | 27.0 - 34.0 pg | EXTERNAL | | | | performed at [facility], [address] | | LAB | | | | [address], | | | | | | [place] [address] | | | | + + + + + + | MCHC | 32.8Comment: Testing | 32.0 - 35.5 | EXTERNAL | | | | performed at [facility], [address] | g/dL | LAB | | | | [address], | | | | | | [place] [address] | | | | + + + + + + | RDW-CV | 43.8Comment: Testing | 37 - 53 fl | EXTERNAL | | | | performed at [facility], [address] | | LAB | | | | [address], | | | | | | [place] [address] | | | | + + + + + + | Platelet | 247Comment: Testing | 150 - 400 K/uL | EXTERNAL | | | Count | performed at [facility], [address] | | LAB | | | Plasma | [address], | | | | | | [place] [address] | | | | + + + + + + | MPV | 7.5Comment: Testing | fl | EXTERNAL | | | | performed at [facility], [address] | | LAB | | | | [address], | | | | | | [place] [address] | | | | + + + + + + | Differentia | AUTOMATEDComment: | | EXTERNAL | | | l Type | Testing performed at | | LAB | | | | [facility], [address] | | | | | | [place] | | | | | | [address] | | | | + + + + + + | % Segmented | 56.1Comment: Testing | % | EXTERNAL | | | | performed at [facility], [address] | | LAB | | | Neutrophils | [address], | | | | | | [place] [address] | | | | + + + + + + | % | 30.5Comment: Testing | % | EXTERNAL | | | Lymphocytes | performed at [facility], [address] | | LAB | | | | [address], | | | | | | [place] [address] | | | | + + + + + + | % Monocytes | 9.1Comment: Testing | % | EXTERNAL | | | | performed at [facility], [address] | | LAB | | | | [address], | | | | | | [place] [address] | | | | + + + + + + | % | 4.1Comment: Testing | % | EXTERNAL | | | Eosinophils | performed at [facility], [address] | | LAB | | | | [address], | | | | | | [place] [address] | | | | + + + + + + | % Basophils | 0.2Comment: Testing | % | EXTERNAL | | | | performed at [facility], [address] | | LAB | | | | [address], | | | | | | [place] [address] | | | | + + + + + + | Absolute | 5.9Comment: Testing | 1.9 - 7.4 K/uL | EXTERNAL | | | Segmented | performed at [facility], [address] | | LAB | | | Neutrophils | [address], | | | | | | [place] [address] | | | | + + + + + + | Absolute | 3.2Comment: Testing | 1.0 - 3.9 K/uL | EXTERNAL | | | Lymphocytes | performed at [facility], [address] | | LAB | | | | [address], | | | | | | [place] [address] | | | | + + + + + + | Absolute | 1.0 (H)Comment: Testing | 0 - 0.8 K/uL | EXTERNAL | | | Monocytes | performed at [facility], [address] | | LAB | | | | [address], | | | | | | [place] [address] | | | | + + + + + + | Absolute | 0.4Comment: Testing | 0 - 0.5 K/uL | EXTERNAL | | | Eosinophils | performed at [facility], [address] | | LAB | | | | [address], | | | | | | [place] [address] | | | | + + + + + + | Absolute | 0.0Comment: Testing | 0 - 0.1 K/uL | EXTERNAL | | | Basophils | performed at [facility], [address] | | LAB | | | | [address], | | | | | | [place] [address] | | | | + + + + + + | RBC | Comment: 1+ | | EXTERNAL | | | Morphology | HypochromiaTesting | | LAB | | | | performed at [facility], [address] | | | | | | [address], | | | | | | [place] [address] | | | | + + + [...] | | | | performed at [facility], [address] | | LAB | | | | [address], | | | | | | [place] [address] | | | | + + + [...] | | | | performed at [facility], [address] | | LAB | | | | [address], | | | | | | [place] [address] | | | | + + + [...] | EXTERNAL | | | A1c | [place] [employer] | | LAB | | | [...] | | | | performed at [facility], [address] | | | | | [address] [facility], | | | | | | [place] [address] | | | | + + + [...] | | | | performed at [facility], [address] | | | | | | [facility], | | | | | | [place] [address] | | | | + + + [...] | | | | | [place] [address] | | | | + + + + + + | K | 3.7Comment: Testing | 3.5 - 4.9 | EXTERNAL | | | | performed at [facility], [address] | mmol/L | LAB | | | | [address], | | | | | | [place] [address] | | | | + + + + + + | Cl | 104Comment: Testing | 99 - 109 mmol/L | EXTERNAL | | | | performed at [facility], [address] | | LAB | | | | [address], | | | | | | [place] [address] | | | | + + + + + + | CO2 | 32Comment: Testing | 23 - 32 mmol/L | EXTERNAL | | | | performed at [facility], [address] | | LAB | | | | [address], | | | | | | [place] [address] | | | | + + + + + + | Anion Gap | 7Comment: Testing | 5 - 20 mmol/L | EXTERNAL | | | | performed at [facility], [address] | | LAB | | | | [address], | | | | | | [place] [address] | | | | + + + + + + | Glucose, | 134 (H)Comment: Testing | 65 - 99 mg/dL | EXTERNAL | | | Fasting | performed at [facility], [address] | | LAB | | | | [address], | | | | | | [place] [address] | | | | + + + + + + | BUN | 23Comment: Testing | 8 - 25 mg/dL | EXTERNAL | | | | performed at [facility], [address] | | LAB | | | | [address], | | | | | | [place] [address] | | | | + + + + + + | Creatinine | 1.06Comment: Testing | 0.70 - 1.30 | EXTERNAL | | | | performed at [facility], [address] | mg/dL | LAB | | | | [address], | | | | | | [place] [address] | | | | + + + + + + | BUN/Creatin | 22Comment: Testing | | EXTERNAL | | | ine Ratio | performed at [facility], [address] | | LAB | | | | [address], | | | | | | [place] [address] | | | | + + + + + + | Calcium | 9.1Comment: Testing | 8.5 - 10.2 | EXTERNAL | | | | performed at [facility], [address] | mg/dL | LAB | | | | [address], | | | | | | [place] [address] | | | | + + + + + + | Protein, | 6.8Comment: Testing | 6.3 - 8.2 g/dL | EXTERNAL | | | Total | performed at [facility], [address] | | LAB | | | | [address], | | | | | | [place] [address] | | | | + + + + + + | Albumin | 3.5 (L)Comment: Testing | 3.6 - 5.0 g/dL | EXTERNAL | | | | performed at [facility], [address] | | LAB | | | | [address], | | | | | | [place] [address] | | | | + + + + + + | Globulin | 3.3Comment: Testing | 1.3 - 4.9 g/dL | EXTERNAL | | | | performed at [facility], [address] | | LAB | | | | [address], | | | | | | [place] [address] | | | | + + + + + + | A/G Ratio | 1.1Comment: Testing | 1.0 - 2.4 | EXTERNAL | | | | performed at [facility], [address] | | LAB | | | | [address], | | | | | | [place] [address] | | | | + + + + + + | Bilirubin | 0.3Comment: Testing | 0.1 - 1.5 mg/dL | EXTERNAL | | | Total | performed at [facility], [address] | | LAB | | | | [address], | | | | | | [place] [address] | | | | + + + + + + | ALP, | 63Comment: Testing | 35 - 115 U/L | EXTERNAL | | | External | performed at [facility], [address] | | LAB | | | | [address], | | | | | | [place] [address] | | | | + + + + + + | AST | 14Comment: Testing | 10 - 45 U/L | EXTERNAL | | | | performed at [facility], [address] | | LAB | | | | [address], | | | | | | [place] [address] | | | | + + + + + + | ALT | 14Comment: Testing | 10 - 65 U/L | EXTERNAL | | | | performed at [facility], [address] | | LAB | | | | [address], | | | | | | [place] [address] | | | | + + + [...] | | | | | at [facility], [address] | | | | | | [facility], | | | | | | [place] [address] | | | | + + + [...] | | Fingerstick | performed at [facility];[address] | | LAB | | | | [address];[place], [place] | | | | | | [address] | | | | + + + [...] RNAL | | | | performed at [facility];[address] | | LAB | | | | [address];[place] | | | | | | [address] | | | | + + + +----- -------+ + | RBC, UA | 0-2Comment: Testing | 0 - 2 /hpf | EXTE RNAL | | | | performed at [facility];[address] | | LAB | | | | [address];[place] | | | | | | [address] | | | | + + + +----- -------+ + | Epithelial | 1-5Comment: Testing | /lpf | EXTE RNAL | | | Cells | performed at [facility];[address] | | LAB | | | | [address];[place] | | | | | | [address] | | | | + + + +----- -------+ + | Bacteria, | 1+ (A)Comment: Testing | | EXTE RNAL | | | UA | performed at [facility];[address] | | LAB | | | | [facility];[place], [place] | | | | | | [address] | | | | + + + +----- -------+ + | Crystals | 1+Comment: | /hpf | EXTE RNAL | | | | PHOSPHATESFEWCALCIUM | | LAB | | | | OXALATETesting performed | | | | | | at [facility];[address];[place] [address] | | | | | |Testing performed at [facility];[address] [facility];[place] [address] | | | | | | | [...] contrast. A 3D noncontrast | | | otsn-yb-fsxypu MRA sequence was acquired through the head. [...] | | | posterior cerebral artery: Normal. [place]: Anterior | | | communicating [...] Conversion - 09/21/2018 3:31 PM PDT [facility] | | HEAD07/08/2013 4:48 PM HISTORY:57 years. Male. Left-sided facial droop and mild | | dysarthria. TECHNIQUE:Imaging was performed on a 1.5 Eden MRI system. Multiplanar | | sequences were acquired according to a standard department protocol without contrast. | | A 3D noncontrast ghug-nt-gtthja MRA sequence was acquired through the head. [...] Normal.Left posterior | | cerebral artery: Normal. [place]:Anterior communicating artery: Normal. The | [...] cerebral arterial system with absence of the paver layer ior communicating arteries which would tend to [...] | NORAH GR CT HEAD WO CONTRAST 07/08/2013 [...] + + | Richard, Joaquin Conversion - 09/21/2018 3:31 PM PDT [facility] GRCT HEAD WO | | CONTRAST07/08/2013 3:49 PM [...] | | | | performed at [facility];[address] | mmol/L | LAB | | | | [address];[place] | | | | | | [address] | | | | + + + [...] | | | | | | newspaper or periodical editor SANYA DUPONT (8) | | | | | | on 07/08/2013 4:53:46 PM | | | | + + + + + + + + | Specimen | + + | | + + + + + | Narrative | Performed At | + + + | Historically converted procedure from [facility] | EXTERNAL LAB | + + [...] | | Patient | performed at [facility];[address] | | LAB | | | [address];[place], [place] | | | | | | [address] | | | | + + + [...] | | | | performed at [facility];[address] | | LAB | | | | [address];[place], [place] | | | | | | [address] | | | | + + + [...] | | | | performed at [facility] | | | | | | [address];[place], [place] | | | | | | [address] | | | | + + + [...] + +---------+ + + External Lab: CBC (07/08/2013 2:15 PM PDT) + + + + + + | Component | Value | Ref Range | Performed | Pathologist | | | | | At | Signature | + + + + + + | WBC | 12.7 (H)Comment: Testing | 3.8 - 11.0 K/uL | EXTERNAL | | | | performed at [facility];[address] | | LAB | | | | [address];[place] | | | | | | [address] | | | | + + + + + + | Non- | 5.42Comment: Testing | 4.20 - 5.70 | EXTERNAL | | | Red Blood | performed at [facility];[address] | M/uL | LAB | | | Cells | [address];[place] | | | | | Counted | [address] | | | | + + + + + + | Hemoglobin | 14.4Comment: Testing | 13.2 - 17.0 | EXTERNAL | | | | performed at [facility];[address] | g/dL | LAB | | | | [address];[place] | | | | | | [address] | | | | + + + + + + | Hematocrit, | 44.1Comment: Testing | 39.0 - 50.0 % | EXTERNAL | | | POC | performed at [facility];[address] | | LAB | | | | [address];[place] | | | | | | [address] | | | | + + + + + + | MCV | 81.2Comment: Testing | 80.0 - 100.0 fl | EXTERNAL | | | | performed at [facility];[address] | | LAB | | | | [address];[place] | | | | | | [address] | | | | + + + + + + | MCH | 26.5 (L)Comment: Testing | 27.0 - 34.0 pg | EXTERNAL | | | | performed at [facility];[address] | | LAB | | | | [address];[place] | | | | | | [address] | | | | + + + + + + | MCHC | 32.7Comment: Testing | 32.0 - 35.5 | EXTERNAL | | | | performed at [facility];[address] | g/dL | LAB | | | | [address];[place] | | | | | | [address] | | | | + + + + + + | RDW-CV | 42.9Comment: Testing | 37 - 53 fl | EXTERNAL | | | | performed at [facility];[address] | | LAB | | | | [address];[place] | | | | | | [address] | | | | + + + + + + | Platelet | 348Comment: Testing | 150 - 400 K/uL | EXTERNAL | | | Count | performed at [facility];[address] | | LAB | | | Plasma | [address];[place] | | | | | | [address] | | | | + + + + + + | MPV | 7.4Comment: Testing | fl | EXTERNAL | | | | performed at [facility];[address] | | LAB | | | | [address];[place] | | | | | | [address] | | | | + + + + + + | Differentia | AUTOMATEDComment: | | EXTERNAL | | | l Type | Testing performed at | | LAB | | | | [facility];[address];[place] [address] | | | | + + + + + + | % Segmented | 57.7Comment: Testing | % | EXTERNAL | | | | performed at [facility];[address] | | LAB | | | Neutrophils | [address];[place] | | | | | | [address] | | | | + + + + + + | % | 30.4Comment: Testing | % | EXTERNAL | | | Lymphocytes | performed at [facility];[address] | | LAB | | | | [address];[place] | | | | | | [address] | | | | + + + + + + | % Monocytes | 8.4Comment: Testing | % | EXTERNAL | | | | performed at [facility];[address] | | LAB | | | | [address];[place] | | | | | | [address] | | | | + + + + + + | % | 3.1Comment: Testing | % | EXTERNAL | | | Eosinophils | performed at [facility];[address] | | LAB | | | | [address];[place] | | | | | | [address] | | | | + + + + + + | % Basophils | 0.4Comment: Testing | % | EXTERNAL | | | | performed at [facility];[address] | | LAB | | | | [address];[place] | | | | | | [address] | | | | + + + + + + | Absolute | 7.3Comment: Testing | 1.9 - 7.4 K/uL | EXTERNAL | | | Segmented | performed at [facility];[address] | | LAB | | | Neutrophils | [address];[place] | | | | | | [address] | | | | + + + + + + | Absolute | 3.9Comment: Testing | 1.0 - 3.9 K/uL | EXTERNAL | | | Lymphocytes | performed at [facility];[address] | | LAB | | | | [address];[place] | | | | | | [address] | | | | + + + + + + | Absolute | 1.1 (H)Comment: Testing | 0 - 0.8 K/uL | EXTERNAL | | | Monocytes | performed at [facility];[address] | | LAB | | | | [address];[place] | | | | | | [address] | | | | + + + + + + | Absolute | 0.4Comment: Testing | 0 - 0.5 K/uL | EXTERNAL | | | Eosinophils | performed at [facility];[address] | | LAB | | | | [address];[place] | | | | | | [address] | | | | + + + + + + | Absolute | 0.0Comment: Testing | 0 - 0.1 K/uL | EXTERNAL | | | Basophils | performed at [facility];[address] | | LAB | | | | [address];[place] | | | | | | [address] | | | | + + + [...] | | | | performed at [facility];[address] | | LAB | | | | [address];[place], [place] | | | | | | [address] | | | | + + + [...] | | | | performed at [facility];[address] | mmol/L | LAB | | | | [address];[place] | | | | | | [address] | | | | + + + + + + | K | 3.8Comment: Testing | 3.5 - 4.9 | EXTERNAL | | | | performed at [facility];[address] | mmol/L | LAB | | | | [address];[place] | | | | | | [address] | | | | + + + + + + | Cl | 103Comment: Testing | 99 - 109 mmol/L | EXTERNAL | | | | performed at [facility];[address] | | LAB | | | | [address];[place] | | | | | | [address] | | | | + + + + + + | CO2 | 30Comment: Testing | 23 - 32 mmol/L | EXTERNAL | | | | performed at [facility];[address] | | LAB | | | | [address];[place] | | | | | | [address] | | | | + + + + + + | Anion Gap | 12Comment: Testing | 5 - 20 mmol/L | EXTERNAL | | | | performed at [facility];[address] | | LAB | | | | [address];[place] | | | | | | [address] | | | | + + + + + + | Glucose, | 113 (H)Comment: Testing | 65 - 99 mg/dL | EXTERNAL | | | Fasting | performed at [facility];[address] | | LAB | | | | [address];[place] | | | | | | [address] | | | | + + + + + + | BUN | 26 (H)Comment: Testing | 8 - 25 mg/dL | EXTERNAL | | | | performed at [facility];[address] | | LAB | | | | [address];[place] | | | | | | [address] | | | | + + + + + + | Creatinine | 1.16Comment: Testing | 0.70 - 1.30 | EXTERNAL | | | | performed at [facility];[address] | mg/dL | LAB | | | | [address];[place] | | | | | | [address] | | | | + + + + + + | BUN/Creatin | 22Comment: Testing | | EXTERNAL | | | ine Ratio | performed at [facility];[address] | | LAB | | | | [address];[place] | | | | | | [address] | | | | + + + + + + | Calcium | 9.3Comment: Testing | 8.5 - 10.2 | EXTERNAL | | | | performed at [facility];[address] | mg/dL | LAB | | | | [address];[place] | | | | | | [address] | | | | + + + + + + | Protein, | 7.8Comment: Testing | 6.3 - 8.2 g/dL | EXTERNAL | | | Total | performed at [facility];[address] | | LAB | | | | [address];[place] | | | | | | [address] | | | | + + + + + + | Albumin | 3.3 (L)Comment: Testing | 3.6 - 5.0 g/dL | EXTERNAL | | | | performed at [facility];[address] | | LAB | | | | [address];[place] | | | | | | [address] | | | | + + + + + + | Globulin | 4.5Comment: Testing | 1.3 - 4.9 g/dL | EXTERNAL | | | | performed at [facility];[address] | | LAB | | | | [address];[place] | | | | | | [address] | | | | + + + + + + | A/G Ratio | 0.7 (L)Comment: Testing | 1.0 - 2.4 | EXTERNAL | | | | performed at [facility];[address] | | LAB | | | | [address];[place] | | | | | | [address] | | | | + + + + + + | Bilirubin | 0.3Comment: Testing | 0.1 - 1.5 mg/dL | EXTERNAL | | | Total | performed at [facility];[address] | | LAB | | | | [address];[place] | | | | | | [address] | | | | + + + + + + | ALP, | 85Comment: Testing | 35 - 115 U/L | EXTERNAL | | | External | performed at [facility];[address] | | LAB | | | | [address];[place] | | | | | | [address] | | | | + + + + + + | AST | 15Comment: Testing | 10 - 45 U/L | EXTERNAL | | | | performed at [facility];[address] | | LAB | | | | [address];[place] | | | | | | [address] | | | | + + + + + + | ALT | 21Comment: Testing | 10 - 65 U/L | EXTERNAL | | | | performed at [facility];[address] | | LAB | | | | [address];[place] | | | | | | [address] | | | | + + + [...] | | | | | at [facility];[address];[place] [address] | | | | + + + [...]
--- OUTSIDE RECORDS SUMMARY | ~2019-10-12 | XMS | Encounter Summary ---
Demographics + + + | Address | [address] | | | [place] [address] | + + + | Home Phone [...] + | Sammi Kohler | ECON | [place] [address] | | + + + + + Care Team Providers + +------+ + | Care Restaurant Attendant Name | Role | Phone | [...] + + | Authorized | Specialty | Cardiology | Diagnoses | John, | Ashre, | | | Services | | Prolonged | CITLALY Wright | MD Thang | | | Required | | Q-T interval | [address] | [address] | | | | | on ECG | [address] | [address] | | | | | Atrial | [address] | [place], [place] | | | | | fibrillation | [place], [place] | [address] Phone: | | | | | with RVR | [id number] | [phone] | | | | | (HCC) | Phone: | Fax: | | | | | Murmur | [phone] | [phone] | | | | | | Fax: | | | | | | | [phone] | | + + + + + + + Encounter Details +--------+---------+ + + + | Date | Type | Department | Care Team | Description | +--------+---------+ + + + | 01/16/ | Office | [facility] | JohnAdriana, | Dizziness (Primary | | 2019 | Visit | [facility] | ATOMIC PROCESS ENGINEER [address] | Dx); Essential | | | | [address] | [address] [place], | hypertension; | | | | [place], [place] | [place] [address] | Uncontrolled type 2 | | | | [address] | [phone] | diabetes mellitus | | | | [phone] | | with hyperglycemia | | | | | | ([facility]); Leg swelling; | | | | | | Prolonged Q-T | | | | | | interval on ECG; | | | | | | Atrial fibrillation | | | | | | with RVR ([facility]); | | | | | | Murmur; Left ear | | | | | | impacted cerumen | +--------+---------+ + + + Social History [...] + + + | Blood Pressure | 150/60 | 01/16/2019 3:55 PM | | | | | PST | | + + + + + | Pulse | 58 | 01/16/2019 3:55 PM | | | | | PST | | + + + + + | Temperature | - | - | | + + + + + | Respiratory Rate | - | - | | + + + + + | Oxygen Saturation | 96% | 01/16/2019 3:55 PM | | | | | PST | | + + + + + | Inhaled Oxygen | - | - | | | Concentration | | | | + + + + + | Weight | 101.1 kg (222 lb | 01/16/2019 3:55 PM | | | | 12.8 oz) | PST | | + + + + + | Height | - | - | | + + + + + | Body Mass Index | 31.07 | 01/10/2019 5:26 AM | | | [...] Instructions Patient Instructions Adriana Lopez ARNP - 01/16/2019 4:00 PM Swapna is a pleasure seein g you in clinic today. I look forward in providing the best quality care in meeting your hea lthcare needs! Applicable to new patients- Do not forget to complete new patient survey. Th ank you in advance. As discussed: Labs : A1C before next appoitment Procedures to be scheduled: ECHO (Central Scheduling ) Referrals: Cardiology Elevate legs and use compression stockings. Limit sodium intake (<2 gram/day) Weigh daily: Notify if weight gain 2 lbs/day or > 5 lbs/ week Encouraged regular accu checks, maintain home blood sugar log, monitor for sign/symptoms of hypoglycemia such as shakiness, dizziness, sweating, hunger, headache, or confusion. Blood sugar readings Before males: 80-130 mg/dL 1 to 2 hours after meals: <180 mg/dL Encouraged annual eye exam, self examine for foot ulcer, Last HbA1C 11.0 on 10/25 Reduce intake of sugar and sugary foods, increase intake of wholegrain and high fiber fo ods, reduce fat intake: especially saturated fat, reduce salt intake, avoid skipping meals a nd space your breakfast, lunch and evening meal. 1/2 of the plate should include non-starchy vegetables. Examples: broccoli and cauliflow er, lettuce and other green, leafy vegetables; cucumbers; green and wax beans; celery; peppe rs; mushrooms; tomato. 1/4 of the plate filled with healthy starches including whole-grains and starchy vegetab les. Healthy Examples: whole wheat breads, cereals, and pastas; rice; potatoes, sweet potato es, corn, squash, and peas; and low-fat crackers. 1/4 to 1/3 of the plate filled with meats and other proteins. Healthy Examples: skinless chicken and turkey; lean beef and pork; fish and other seafood. The recommendation for physical activity with type 2 diabetes is 150 minutes per week of moderate-intensity aerobic physical activity. This can be done in bouts of 10 minutes or mo re during the day to total 150 minutes per week. Many people will do 30 minutes, 5 days per week. Moderate-intensity physical activity is defined as ballroom dancing, biking, light gar dening, tennis, brisk walking, and water aerobics. Follow up: PCP (Marchjann Pack) Monitor for uncontrolled shortness of breath, chest pain, nausea, vomiting, diarrhea, fever >101F, in this case seek emergency room evaluation. Be well, Adriana documented in this encounter Progress Notes Adriana Lopez ARNP - 01/16/2019 4:00 PM PST Subjective: Reason For Visit: 1. Patient presents today for follow up appointment. 2. No concerns reported from patient. *Preliminary data as noted above has been collected by clinical client application support engineer* Patient ID: Kevyn Guzman is a 63 y.o. male. Patient presents for Chief Complaint: "Ed follow-up" HPI: This is my first visit with the patient and sees CITLALY Pereira in the clinic. Pt has significant medical history of hypertension, hyperlipidemia, DVT, atrial fibrillation, COPD, diabetes mellitus II. Depression, WARD. Patient presents for follow-up on ED visit for dizziness and hyperglycemia. He states that his dizziness has not resolved complete;y, but better than since hi visit to the ED. Pt was also seen by muffler mechanic, Dr. Goodrich. Had ear la vage. Able to completely ear lavage the right ear but unable to completely clean the left ea r. He will be going back to the audiology on 01/21/19. Pt states that he does not check his blood sugar at home. Also states he does not take his diabetes medication regularly. He misses few dosage. Denies any extensive thirst, urinary fr equency, nausea, vomiting, confusion, or abdominal pain. Interim History Patient presented to ED for dizziness. The following is an excerpt authored by Dr. Judith lomeli; dated 01/10/19: "The patient presents to ED with complaints of dizziness. Onset of symptoms was earlier thi s morning, with a constant course since that time. The symptoms are described to be of moder ate severity. The patient describes the quality and location of the symptoms as the followin g: "room spinning". Nothing makes the symptoms/pain better, and movement makes symptoms/pain worse. Pt reports pain/symptoms do not radiate. The patient has a h/o A-fib, DVT on Eliquis , DM II, PE, previous stroke, TIA, COPD, renal failure and others noted below. He was seen i n the ED on 01/03 after a fall and head injury, post dizziness and was admitted for workup i ncluding CT imaging and MRI. He was discharged from the hospital 5 days ago and was told to follow up with ENT. He reports he has a scheduled appointment with his PCP office today at 1 2:30 PM but states "I couldn't take all the dizziness, even after the medication." The roberto ent last took his Meclozine at 4AM this morning but has had no relief to his symptoms. The p attio reports he did have his ears drained prior to discharge but has had intermittent head aches daily since his ED visit. Patient also complains of intermittent headaches, diarrhea ( this morning one episode). Denies fever, chills, chest pain, shortness of breath, or any oth er symptoms at this time. Care prior to arrival consisted of Tylenol (for headaches), Mecloz ine, with no relief. " The following portions of the patient's history were reviewed and updated as appropriate an d is available elsewhere in the record: history, medications, labs, and imaging Patient Care Team: Mireya Pack, RENT AND MISCELLANEOUS REMITTANCE CLERK as PCP - General (Nurse Practitioner - Primary Care) Current Outpatient Medications: acetaminophen (TYLENOL) 325 mg tablet, Take 2 tablets by mouth every 4 hours as needed for Pain (or fever >= 38.6 C (101.5 F))., Disp: 30 tablet, Rfl: 1 apixaban (ELIQUIS) [...] hr tablet, Take 1 tablet by mouth Daily., Disp: 30 tab let, Rfl: 4 omeprazole (PRILOSEC) 20 mg capsule, [...] MD; Location: [facility]COPY; Service: Gastroen terology; Laterality: N/A; HERNIA REPAIR 07/03/2013 Procedure: LAPAROSCOPIC - HERNIA - INCISIONAL; Surgeon: Jevon Vargas DO; Location: [facility] MAIN OR; Service: General; Laterality: N/A; KNEE SURGERY rt knee, patella LEG SURGERY LLE OTHER SURGICAL HISTORY UNLISTED PROCEDURE ARTHROSCOPY OTHER SURGICAL HISTORY Left 05/05/2014 SKIN LESION EXCISION - Procedure: EXCISION - LESION - FROZEN SECTION; Surgeon: Sy murcia MD; Location: [facility] MAIN OR; Service: Plastics; Laterality: Left; forearm SKIN BIOPSY SKIN CANCER EXCISION Left 10/10/2012 Procedure: EXCISION - SKIN CANCER; Surgeon: Sy Fierro MD; Location: [facility] MAIN OR; Service: Plastics; Laterality: Left; upper arm and upper back w/frozen section UPPER GASTROINTESTINAL ENDOSCOPY UPPER GASTROINTESTINAL ENDOSCOPY 03/03/2013 Procedure: ESOPHAGOGASTRODUODENOSCOPY; Surgeon: Howie Gibson MD; Location: [facility]; Se rvice: Gastroenterology; Laterality: [...] file Gets together: Not on file Attends mormon service: Not on file Active member of [...] alone x 1 wk, moved from [facility], , 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 2 falls in the last 6 months. Review of Systems Constitutional: Negative for activity change, appetite change, chills, fatigue, fever and u nexpected weight change. HENT: Negative for trouble swallowing. Eyes: Negative for visual disturbance. Respiratory: Negative for cough, shortness of breath and wheezing. Cardiovascular: Positive for leg swelling. Negative for chest pain and palpitations. Gastrointestinal: Negative for abdominal pain, blood in stool, constipation, diarrhea, naus ea and vomiting. Genitourinary: Negative for dysuria. Musculoskeletal: Negative for gait problem. Neurological: Positive for dizziness. Negative for tremors, speech difficulty, weakness, li ght-headedness and headaches. Objective: BP 150/60 | Pulse 58 | Wt 101.1 kg (222 lb 12.8 oz) | SpO2 96% | BMI 31.07 kg/m Physical Exam Constitutional: General: He is not in acute distress. Appearance: Normal appearance. He is not ill-appearing, toxic-appearing or diaphoretic. Comments: Comes to clinic in unclean clothes HENT: Head: Normocephalic and atraumatic. Right Ear: Tympanic membrane, ear canal and external ear normal. There is no impacted ce rumen. Left Ear: Tympanic membrane, ear canal and external ear normal. There is impacted cerume n. Nose: Nose normal. No congestion or rhinorrhea. Mouth/Throat: Mouth: Mucous membranes are moist. Pharynx: Oropharynx is clear. No oropharyngeal exudate or posterior oropharyngeal erythe ma. Eyes: General: No scleral icterus. Right eye: No discharge. Left eye: No discharge. Conjunctiva/sclera: Conjunctivae normal. Pupils: Pupils are equal, round, and reactive to light. Cardiovascular: Rate and Rhythm: Normal rate. Rhythm irregular. Heart sounds: Murmur present. No friction rub. No gallop. Pulmonary: Effort: [...] present. Musculoskeletal: Normal range of motion. General: Swelling present. No tenderness, deformity or signs of injury. Right lower leg: Edema ( mild ) present. Left lower leg: Edema ( mild) present. Skin: General: Skin is warm and dry. Neurological: Mental Status: He is alert and oriented to person, place, and time. Psychiatric: Mood and Affect: Mood normal. Behavior: Behavior normal. Thought Content: Thought content normal. Judgment: Judgment normal. Assessment and Plan: Kevyn Guzman is a 63 y.o. pleasant male was seen today for the following: Visit Diagnoses and Associated Orders: 1. Dizziness: Improving, but has not resolved. Evaluated by Dr. Goodrich and ruled out BPPV. -Take meclizine as needed for dizziness 2. Essential hypertension: Currently, pt is taking carvedilol and hydralazine. Tolerating m edication well. Denies lightheadedness or dizziness. Pt does not monitor BP at home. Last Cr and eGFR was Lab Results Component Value Date EGFR >60 01/10/2019 EGFR >60 01/05/2019 -Continue with current medication. 3. Uncontrolled type 2 diabetes mellitus with hyperglycemia (HCC): Currently, pt is taking metformin, novolog and levemir. Pt is not compliant with medication. Tolerating medication well. Denies episodes of hypoglycemia; no shakiness, dizziness, sweating, hunger, headache, or confusion. Last A1C was: HgbA1c Values 09/14/2018 10/14/2018 6:57 AM 3:01 AM HgbA1c 12.0 11.0 Comment for HgbA1c at 6:57 AM on 09/14/2018: HbA1c method is certified by NGSP and traceab le to the DCCT reference method. ADA guidelines indicate: Prediabetes: 5.7 - 6.4 Diabetes: >6.4 Glycemic control for adults with diabetes: <7.0 Effective 02/21/2018: Note New Method Comment for HgbA1c at 3:01 AM on 10/14/2018: HbA1c method is certified by NGSP and traceab le to the DCCT reference method. ADA guidelines indicate: Prediabetes: 5.7 - 6.4 Diabetes: >6.4 Glycemic control for adults with diabetes: <7.0 Effective 02/21/2018: Note New Method -Continue with current medication. -Encourage to monitor BS once daily in the morning -Mediterranen -The recommendation for physical activity is 150 minutes per week of moderate-intensity aer obic physical activity. This can be done in bouts of 10 minutes or more during the day to to nicole 150 minutes per week. Many people will do 30 minutes, 5 days per week. Moderate-intensit y physical activity is defined as ballroom dancing, biking, light gardening, tennis, brisk w alking, and water aerobics. 4. Leg swelling: Noticed mild bilateral leg swelling during the visit. -Elevate legs and use compression stockings (Gave size F Tubigrip) -Limit sodium intake (<2 gram/day) -Weigh daily: Notify if weight gain 2 lbs/day or > 5 lbs/ week 5. Prolonged Q-T interval on ECG: Pt has been going to ED and hospital for dizziness, palpi tations, and syncopal episode. Last few EKG are showing QTc prolongation. Reviewed medicatio n list. EKG on 01/10/19 VENTRICULAR RATE EKG 69 BPM ATRIAL RATE 69 BPM P-R INTERVAL 164 ms QRS DURATION 88 ms Q-T INTERVAL 462 ms Q-T INTERVAL (CORRECTED) 495 ms P WAVE AXIS 27 degrees QRS AXIS 51 degrees T AXIS 68 degrees INTERPRETATION TEXT Sinus rhythm with Premature atrial complexes Minimal voltage criteria for LVH, may be normal variant Prolonged QT Abnormal ECG When compared with ECG of 03-JAN-2019 20:07, Premature atrial complexes are now Present ST no longer depressed in Anterior leads T wave inversion no longer evident in Inferior leads T wave inversion no longer evident in Anterior leads Confirmed by MUSE READ ONLY, -COMPUTER ([id number]), video effects editor Rodney Roberto Sánchez ([id number]) on 9 4:44:16 AM - Ambulatory referral to [facility] Cardiology 6. Atrial fibrillation with RVR (HCC): Pt is taking Eliquis and nifedipine. Rate controlled . -Continue with current medication. - Ambulatory referral to [facility] Cardiology 7. Murmur: Echo was ordered by PCP for evaluation; but it not done or scheduled. Took to re [facility] coordinator to schedule ECHO. - Ambulatory referral to [facility] Cardiology 8. Left ear impacted cerumen: Follow-up with Dr. Goodrich for cleaning. RTC in March ([facility] schedule to follow-up with PCP; CITLALY Pereira) 25 minutes were spent face to face with the patient. Over 50% of time was spent on coordina tion of care, patient teaching about diabetes management, and developing a mutually agreeabl e plan of care. Remaining time was spent on reviewing chart records, history, and laboratory results, imaging results, current medications, physical examination and health maintenance management. This document has been created using [employer] Voice Recognition software. The entry h as been reviewed for content and accuracy, but there may contain error for similar sounding of words. If there is any question please contact the author of the document: Adriana BOUCHER documented in this encounter Plan of Treatment +--------+ + + + + | Date | Type | Specialty | Care Team | Description | +--------+ + + + + | 10/16/ | Anti-coag | Anticoagulation | Brittany Zaragoza | | | 2020 | visit | | [address] | | | | | | [address] [place], | | | | | | [place] [address] | | | | | | [phone] | | | | | | | | +--------+ + + + + + + +--------+ + + | Name | Type | Priori | Associated Diagnoses | Order Schedule | | | | ty | | | + + +--------+ + + | Ambulatory referral | Outpatient | Routin | Prolonged Q-T | Ordered: 01/16/2019 | | to [facility] Cardiology | Referral | e | interval on ECG | | | | | | Atrial fibrillation | | | | | | with RVR ([facility]) | | | | | | Murmur | | + + +--------+ + + documented as of this encounter Visit Diagnoses + + | Diagnosis | + + | Dizziness - Primary Dizziness and giddiness | + + | Essential hypertension Unspecified essential hypertension | + + | Uncontrolled type 2 diabetes mellitus with hyperglycemia (HCC) | + + | Leg swelling Swelling of limb | + + | Prolonged Q-T interval on ECG Nonspecific abnormal electrocardiogram (ECG) (EKG) | + + | Atrial fibrillation with RVR (HCC) Atrial fibrillation | + + | Murmur Undiagnosed cardiac murmurs | + + | Left ear impacted cerumen Impacted cerumen | + + documented in this encounter
--- OUTSIDE RECORDS SUMMARY | ~2019-10-12 | XMS | Encounter Summary ---
Demographics + + + | Address | [address] | | | [place] [address] | + + + | Home Phone [...] + | Sammi Kohler | ECON | [place] [address] | | + + + + + Care Team Providers + +------+ + | Care Telecommunications Specialist Name | Role | Phone | + +------+ + PCP | Unavailable | + +------+ + Encounter Details +--------+ + + + + | Date | Type | Department | Care Team | Description | +--------+ + + + + | 04/30/ | Hospital | [facility] | Conversion | | | 2015 | Encounter | [facility] | Transaction, | | | | | CLINIC [address] | Provider Unknown | | | | | [place] | [phone] | | | | | [address] | | | | | | [phone] | Sy Fierro MD | | | | | | [address] | | | | | | [place] | | | | | | [address] | | | | | | | [...] Procedure Notes Conversion Transaction, Provider Unknown - 04/30/2014 2:20 PM PDTFormatting of this note m ight be different from the original. Pre-Procedure Instructions by Ira Schaeffer RN at 04/30/141419 Author: Ira Schaeffer RN Service: Anesthesiology Author Type: Registered Nurse Filed: 04/30/14 0862 Date of Service: 04/30/141419 Status: Signed Clinical Partner: Ira Schaeffer RN (Registered Nurse) Pt lives at [facility] recently seen in ER for lower abd. Pain. Labs and EKG in eula d chart from that visit. Minor procedure is being done and pt is otherwise at baseline. IT i s unclear why the patient has prescription for nitro as he does not see a television equipment operator and h as no record of CAD. EKG today shows NSR although pt does have history of a fib. Pt facility given pre op fasting guidelines, as well as medication instructions. States understanding. Also pre op fasting guidelines as well as medication instructions sent with Machine I Engraver to give t o facility. Genaro wilson in this encounter Plan of Treatment +--------+ + + + + | Date | Type | Specialty | Care Team | Description | +--------+ + + + + | 10/16/ | Anti-coag | Anticoagulation | Brittany Zaragoza | | | 2019 | visit | | [address] | | | | | | [address] [place], | | | | | | [place] [address] | | | | | | [phone] | | | | | | | | +--------+ + + + + documented as of this encounter Procedures + +--------+ + + + | Procedure Name | Priori | Date/Time | Associated Diagnosis | Comments | | | ty | | | | + +--------+ + + + | MRSA NAAT | Timed | 04/30/2014 | | Results for this | | | | 2:00 PM | | procedure are in the | | | | PDT | | results section. | + +--------+ + + + documented in this encounter Results MRSA NAAT (04/30/2014 2:00 PM PDT) + + | Specimen | + + | | + + + + + | Narrative | Performed At | + + + | [facility] | EXTERNAL LAB | | Testing performed at [facility];[address] [place] [address];[place] [address] MRSA PCR | | | NEGATIVE Testing performed at | | | [facility];[address] [place] [address];[place] [address] | | + + + + +---------+ + + | Performing | Address | City/State/Zipcode | Phone Number | | Organization | | | | + +---------+ + + | EXTERNAL LAB | | | | + +---------+ + + documented in this encounter Visit Diagnoses Not on filedocumented in this encounter"
--- OUTSIDE RECORDS SUMMARY | ~2019-10-12 | XMS | Encounter Summary ---
Demographics + + + | Address | [address] | | | [place] [address] | + + + | Home Phone [...] + | Sammi Kohler | ECON | [place] [address] | | + + + + + Care Team Providers + +------+ + | Care Rd Project Manager Name | Role | Phone | + +------+ + PCP | Unavailable | + +------+ + Encounter Details +--------+ + + + + | Date | Type | Department | Care Team | Description | +--------+ + + + + | 05/05/ | Emergency | [facility] | Gurvinder Cruz, | Anxiety reaction; | | 2011 | | [facility] | MD [address] | Non-cardiac chest | | | | EMERGENCY CENTER | [place], [place] | pain | | | | [address] | [address] | | | | | [place], [place] | [phone] | | | | | [address] | | | | | | [phone] | | | +--------+ + + + [...] 05/06/11401 Date of Service: 05/06/11400 Status: Signed Garden Worker: Suresh Marin RN (Registered Nurse) Pt awake alert to lobby via w/c . Pt waiting for cab ride home. Suresh Marin RN 05/06/11401 onver ivana Transaction, Provider Unknown - 05/06/2011 1:49 AM PDT ED Notes by Suresh Marin RN at 05/06/11148 Author: Suresh Marin RN Service: (none) Author Type: Registered Nurse Filed: 05/06/11148 Date of Service: 05/06/11148 Status: Signed Garden Worker: Suresh Marin RN (Registered Nurse) MD at bedside. Suresh Marin RN 05/06/11148 onver ivana Transaction, Provider Unknown - 05/06/2011 1:48 AM PDT ED Notes by Suresh Marin RN at 05/06/11147 Author: Suresh Marin RN Service: (none) Author Type: Registered Nurse Filed: 05/06/11148 Date of Service: 05/06/11147 Status: Signed Garden Worker: Suresh Marin RN (Registered Nurse) Pt arrives [...] 0545 Date of Service: 05/06/11139 Status: Signed Garden Worker: Gurvinder Cruz MD (Physician) [facility] Department of Emergency Medicine History [...] admitted on 03-30-11. 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 ETT was normal in 2011 Pt states he is new on town and moved here from [place] and has not established a PCP ye [...] 120 mg by mouth daily. Historical Pro vider, fenofibrate (TRIGLIDE) 160 MG tablet Take 160 [...] troponin. Patient will be placed on the quality assurance monitor body to ensure no life thre atening arrhythmia develops and will be given supplemental oxygen via nasal cannula. I will give Ativan 1 mg PO and Sutton 5-325 mg PO Troponin 0.00 3:39 AM [...] Value Ref Range Flag Date/Time Cardiac Panel [[id number]] Abnormal Collection: 05/06/11219 Order Status: Completed Resulted: [...] ng/mL CK-MB Index 0.7 POC cardiac troponin [[id number]] Collection: 05/06/11233 Order Status: Completed Resulted: 05/06/11246 POC CARDIAC TROPONIN 0.00 0.00 - 0.10 ng/mL Radiology and EKG Evaluation Imaging Results XR Chest PA and Lateral (Preliminary result) Result time:05/06/11309 ED Interpretation Documented by Gurvinder Cruz MD (05/06/11309, [facility] Emergency Department, Emergency Medicine) Normal chest xray No pneumo No cardiomegaly No infiltrate. EKG Interpretation TIME: 138 Rhythm: Sinus Ventricular Rate: 63 bpm UT Interval: Normal ST Segments: Normal Significant Q-waves: None Blocks: None Gustine: Normal ED Diagnoses Final diagnoses Anxiety reaction Non-cardiac chest pain Disposition: Admit ED Disposition Discharge Condition at discharge: Stable Follow-up Information Follow up With Details Comments Contact Info Sanjuanita Gonzales MD [address], [address] [facility] [address] [facility] EM[facility]ENCY [facility]PARTMENT If symptoms worsen or any new concerns [address] [facility] [address] 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 MD Gurvinder Rodriguez MD 05/06/11 0545 onversio n Transaction, Provider Unknown - 05/06/2011 1:39 AM PDTFormatting of this note might be di fferent from the original. ED Notes by Hortensia Cardoso RN at 05/06/11138 Author: Hortensia Cardoso RN Service: (none) Author Type: Registered Nurse Filed: 05/06/11138 Date of Service: 05/06/11138 Status: Signed Garden Worker: Hortensia Cardoso RN (Registered Nurse) Bed:17
Expected date:
Expected time:
Means of arrival:
Comments:
ems 4 21 onver ivana Transaction, Provider Unknown - 05/06/2011 1:39 AM PDT ED Notes by Suresh Marin RN at 05/06/11138 Author: Suresh Marin RN Service: (none) Author Type: Registered Nurse Filed: 05/06/11139 Date of Service: 05/06/11138 Status: Signed Garden Worker: Suresh Marin RN (Registered Nurse) Pt here [...] | | | | | [facility] | | | | | | [place] [address] | | | | | | [phone] | | | | | | | [...]
--- OUTSIDE RECORDS SUMMARY | ~2019-10-12 | XMS | Encounter Summary ---
Demographics + + + | Address | [address] | | | [place] [address] | + + + | Home Phone [...] Sammi Kohler | ECON | [place] [address] | | + + + + + Care Team Providers + +------+ + | Care Library Services Assistant Name | Role | Phone | + +------+ + | Mireya Pack NP | PCP | | + +------+ + Reason for Visit +--------+--------+ + | Reason | Onset | Comments | | | Date | | +--------+--------+ + | Other | 09/18/ | Lab Orders | | | 2020 | | +--------+--------+ + Encounter Details +--------+ + + + + | Date | Type | Department | Care Team | Description | +--------+ + + + + | 09/18/ | Telephone | [facility] | Mireya Pack, | Other (Lab Orders) | | 2019 | | [facility] [address] | DIKE SUPERVISOR [address] | | | | | [address] | [address] [place], | | | | | [place], [place] | [place] [address] | | | | | [address] | [phone] | | | | | [phone] | | | +--------+ + + + [...] Miscellaneous Notes Telephone Encounter - Fanny Ramos, Internet Security Specialist - 09/19/2019 12:12 PM PDTCalmeliza light TCL and spoke with Ruthann, who informed me that this lab will be added on to original draw . elephone Encounter - Fanny Ramos, Internet Security Specialist - 09/19/2019 12:11 PM PDT----- M essage from Mireya Pack NP sent at 09/19/2019 10:53 AM PDT ----- Request if CBC can be added to lab draw from 09/18/19 thanks (clinic patient lisa) do cumented in this encounter Plan of Treatment +--------+ + + + + | Date | Type | Specialty | Care Team | Description | +--------+ + + + + | 10/16/ | Anti-coag | Anticoagulation | Brittany Zaragoza | | 2019 | visit | | [address] | | | | | | [place], | | | | | | [place] [address] | | | | | | [phone] | | | | | | | | +--------+ + + + + documented as of this encounter Visit Diagnoses Not on filedocumented in this encounter"
--- OUTSIDE RECORDS SUMMARY | ~2019-10-12 | XMS | Encounter Summary ---
Demographics + + + | Address | [address] | | | [place] [address] | + + + | Home Phone [...] + | Sammi Kohler | ECON | [place] [address] | | + + + + + Care Team Providers + +------+ + | Care Manufacturing Electrician Name | Role | Phone | + +------+ + | Mireya Pack NP | PCP | | + +------+ + Reason for Visit +--------+ + | Reason | Comments | +--------+ + | Other | cancel apt | +--------+ + Encounter Details +--------+ + + + + | Date | Type | Department | Care Team | Description | +--------+ + + + + | 01/09/ | Telephone | [facility] | Lucia Amos | Other (cancel apt) | | 2019 | | [facility] [address] | [address] | | | | | [address] | | | | | | [place], [place] | | | | | | [address] | | | | | | [phone] | | | +--------+ + + + [...] Telephone Encounter - Lucia Amos RN - 01/09/2019 8:47 AM PSTPatient called to say that he is going to cancel his apt today with PCP because he forgot to schedule transportat ion with [facility]. Reminded patient that he has a lot of cancellations in the past because of thi s and that he is supposed to schedule the ride 24 hours before. Patient insisted that he jus t forgot to do this one important thing and for this nurse to not be mad at him. Explained p atiently to him that this nurse is not mad but was just reminding him that per his file, he has a lot of cancelled apts and all because of transportation issues. He insisted that he ke eps forgetting to set up ride with [facility] until the day of and they don't do same day apts. Appointment re-scheduled on Monday next week but it will be with another provider as he prefers afternoon apts. Patient stated understanding. He will call [facility] now for that apt next week. Patient's sentences are running into each other again when he talks, it sounds like this is the way he talks normally. Did ask him to speak slowly and had to repeat what he said to cl raymundoy the message. documented in this encounter Plan of Treatment +--------+ + + + + | Date | Type | Specialty | Care Team | Description | +--------+ + + + + | 10/16/ | Anti-coag | Anticoagulation | Brittany Zaragoza | | | 2020 | visit | | [address] | | | | | | [place], | | | | | | [place] [address] | | | | | | [phone] | | | | | | | | +--------+ + + + + documented as of this encounter Visit Diagnoses Not on filedocumented in this encounter"
--- OUTSIDE RECORDS SUMMARY | ~2019-10-12 | XMS | Encounter Summary ---
Demographics + + + | Address | [address] | | | [place] [address] | + + + | Home Phone [...] + | Sammi Kohler | ECON | [place] [address] | | + + + + + Care Team Providers + +------+ + | Care Drapery Supervisor Name | Role | Phone | + +------+ + PCP | Unavailable | + +------+ + Encounter Details +--------+ + + + + | Date | Type | Department | Care Team | Description | +--------+ + + + + | 05/12/ | Emergency | [facility] | Mary Ramírez, | Paresthesias | | 2015 | | MEDICAL CENTER | [facility] [address] | | | | | EMERGENCY CENTER | [place] [address] | | | | | [address] [facility] | [phone] | | | | | [place], [place] | | | | | | [address] | | | | | | [phone] | | | +--------+ + + + [...] 05/12/14448 Date of Service: 05/12/14448 Status: Signed Dress Designer: Diane Fischer RN (Registered Nurse) Pt told a taxi will be here about 05:45 am. Diane Fischer RN 05/12/14448 onver ivana Transaction, Provider Unknown - 05/12/2014 3:22 AM PDT ED Notes by Diane Fischer RN at 05/12/14321 Author: Diane Fischer RN Service: (none) Author Type: Registered Nurse Filed: 05/12/14330 Date of Service: 05/12/14321 Status: Addendum Dress Designer: Diane Fischer RN (Registered Nurse) Related Notes: Original Note by Diane Fischer RN (Registered Nurse) filed at 05/12/1404 27 Diane Fischer RN 05/12/14330 onver ivana Transaction, Provider Unknown - 05/12/2014 2:34 AM PDT ED Notes by Tiffani Albarado RN at 05/12/14233 Author: Tiffani Albarado RN Service: (none) Author Type: Registered Nurse Filed: 05/12/14234 Date of Service: 05/12/14233 Status: Signed Dress Designer: Tiffani Albarado RN (Registered Nurse) Dr. Ramírez [...] 05/12/14230 Date of Service: 05/12/14230 Status: Signed Dress Designer: Tiffani Albarado RN (Registered Nurse) Pt requesting to speak with the charge nurse at this time. EVE Sneed notified. Tiffani Albarado RN 05/12/14230 Mary Ann MD - 05/12/2014 1:58 AM PDTFormatting of this note might be different from the or iginal. ED Provider Notes by Xander Ramírez MD at 05/12/14 0158 Author: Xander Ramírez MD Service: (none) Author Type: Physician Filed: 05/12/14 0937 Date of Service: 05/12/14157 Status: Signed Dress Designer: Xander Ramírez MD (Physician) [facility] Department of Emergency Medicine 2:34 AM History [...] CHOLECYSTECTOMY; Surgeon: Jevon Vargas DO; Location: [facility] MAIN OR; Service: General; Laterality: N/A; Abdominal surgery Cholecystectomy Skin cancer excision 10/10/2012 Procedure: EXCISION - SKIN CANCER; Surgeon: Sy Fierro MD; Location: [facility] MAIN OR ; Service: Plastics; Laterality: Left; upper arm and upper back w/frozen section Esophagogastroduodenoscopy 03/03/2013 Procedure: ESOPHAGOGASTRODUODENOSCOPY; Surgeon: Howie Gibson MD; Location: [facility] ENDOSCOPY; S ervice: Gastroenterology; Laterality: N/A; Colonoscopy 03/04/2013 Procedure: COLONOSCOPY; Surgeon: Howie Gibson MD; Location: [facility] ENDOSCOPY; Service: Gastroe nterology; Laterality: N/A; Upper gastrointestinal endoscopy Skin biopsy Hernia repair 07/03/2013 Procedure: LAPAROSCOPIC - HERNIA - INCISIONAL; Surgeon: Jevon Vargas DO; Location: [facility] MAIN OR; Service: General; Laterality: N/A; Skin lesion excision Left 05/05/2014 Procedure: EXCISION - LESION - FROZEN SECTION; Surgeon: Sy Fierro MD; Location: [facility] MAIN OR; Service: Plastics; Laterality: Left; forearm Prior to Admission medications Medication Sig Start Date End Date Taking? Authorizing Provider Albuterol Sulfate (VENTOLIN HFA IN) Inhale 2 puffs into the lungs as needed. 108 mcg/act Historical Provider Euaje-R-Wehnunowvlghf (BEANO) TABS Take 150 Units by mouth [...] 100 mg by mouth nightly. Historical Provider ohiuxqwbx-jhtdfnca-kkiqmikci hydroxide-simethicone Take 40 mLs by mouth daily [...] AM Updated patient on discussion with the content specialist neurologist and his recommendation f or the [...] would necessitate an immediate return visit to [facility] ED. Pt verbalized his understanding of the [...] mass lesion, or hemorrhage. RADIA Read by Barabra Beltre MD on May 12 2014 4:09AM Final result by Rad Results In Richard (05/12/14 04:09:18) Impression: No acute infarct, intracranial mass lesion, or hemorrhage. RADIA Electronically signed by Barbara Beltre MD, FRCP on May 12 2014 4:09AM Referring Pro vider Line: [phone] ID: [id number] Narrative: EXAM: MRI BRAIN EXAM DATE: 05/12/2014 03:40 AM. CLINICAL HISTORY: Recurrent left arm and facial numbness. COMPARISON: Brain MRI from May 06, 2014. TECHNIQUE: Multiplanar, multisequence T1-weighted and fluid-sensitive MR sequences of the b [facility] were performed. Sequences optimized for routine evaluation. [...] for a visit for follow up [address] [facility] [address] Jerrell Diego DO for recheck [address] [place] [address] [facility] [id number] [facility] Emergency Department If symptoms worsen or new concerns 8 [address] [facility] [address] Discharge Medications: Discharge Medication List as of 05/12/2014 4:38 AM Procedures Additional Documentation Procedures Attending Note: Documentation assistance provided by Shannen Franklin (Scribe). Information recorded by the scribe has been reviewed and validated by . Troy laughlin with its contents. MD Xander Pineda MD 05/12/14 0937 onversion Transactlenin n, Provider Unknown - 05/12/2014 1:41 AM PDT ED Notes by Shahbaz Santamaria at 05/12/14140 Author: Shahbaz Santamaria Service: (none) Author Type: Edger Feeder Filed: 05/12/14140 Date of Service: 05/12/14140 Status: Signed Dress Designer: Shahbaz Santamaria (Edger Feeder) Bed: 03 Expected date: Expected time: Means [...] | | | | | | [address] [facility], | | | | | | [place] [address] | | | | | | [phone] | | | | | | | [...] mass lesion, or hemorrhage. | | | DEBI Electronically signed by Barbara Beltre MD, BOLA | | | on May 12 2014 4:09AM Referring Provider Line: [phone] ID: | | | [id number] | | [...] May 12 2014 4:09AM Referring Provider Line: [phone] ID: [id number] | |microvascular ischemic changes in [...] 12 2014 4:09AM Referring Pro vider Line: [phone] ID: [id number] | + + ECG 12 [...] | | | | newspaper editor managing ZAYNAB HUNT | | | | | [...]
--- OUTSIDE RECORDS SUMMARY | ~2019-10-12 | XMS | Encounter Summary ---
Demographics + + + | Address | [address] | | | [place] [address] | + + + | Home Phone [...] + | Sammi Kohler | ECON | [place] [address] | | + + + + + Care Team Providers + +------+ + | Care Oncology Rep Specialist Name | Role | Phone | + +------+ + PCP | Unavailable | + +------+ + Encounter Details +--------+ + + + + | Date | Type | Department | Care Team | Description | +--------+ + + + + | 03/22/ | Emergency | [facility] | Kevyn Don, | Abdominal pain, | | 2014 | | [facility] | MD [address] | acute, generalized | | | | EM[facility] | [place], [place] | | | | | [address] | [id number] | | | | | [place], [place] | | | | | | [address] | | | | | | [phone] | | | +--------+ + + + [...] 03/22/13632 Date of Service: 03/22/13631 Status: Signed Automation And Controls Instructor: Vadim Bernal RN (Registered Nurse) Dr Don aware of patient's vital signs prior to discharge. Patient reports he will go ho me and take morning pills, including blood pressure medications. Vadim Bernal RN 03/22/13632 Electronically signed by [facility] Transaction, Provider at 09/30/2018 10:49 PM PDTConver ivana Transaction, Provider Unknown - 03/22/2013 6:25 AM PST ED Notes by Vadim Bernal RN at 03/22/13624 Author: Vadim Bernal RN Service: (none) Author Type: Registered Nurse Filed: 03/22/13624 Date of Service: 03/22/13624 Status: Signed Automation And Controls Instructor: Vadim Bernal RN (Registered Nurse) Dr Don at bedside for discharge instructions. Vadim Bernal RN 03/22/13624 axKevyn daly MD - 03/22/2013 6:23 AM PST ED Provider Notes by Kevyn Don MD at 03/22/13622 Author: Kevyn Don MD Service: (none) Author Type: Physician Filed: 03/22/13623 Date of Service: 03/22/13622 Status: Signed Automation And Controls Instructor: Kevyn Don MD (Physician) [facility] Department of Emergency Medicine Medical Decision Making [...] Value Ref Range Date/Time Comprehensive metabolic panel [[id number]] (Abnormal) Collected:03/22/13519 Order Status:Completed Updated:03/22/13622 Specimen Information:Blood [...] U/L EGFR 58 (L) >60 mL/min/1.73m2 Lipase [[id number]] Collected:03/22/13519 Order Status:Completed Updated:03/22/13622 Specimen Information:Blood LIPASE 115 73 - 393 U/L C-Reactive Protein [[id number]] (Abnormal) Collected:03/22/13519 Order Status:Completed Updated:03/22/13622 Specimen Information:Blood CRP 1.0 (H) <0.5 mg/dL CBC with differential [[id number]] (Abnormal) Collected:03/22/13519 Order Status:Completed Updated:03/22/13528 Specimen Information:Blood [...] possible for a visit in [address] [facility] [address] Discharge Medications: New Prescriptions No new [...] 03/22/13618 Date of Service: 03/22/13616 Status: Signed Automation And Controls Instructor: Vadim Bernal RN (Registered Nurse) Patient reports nausea and pain have resolved. Dr Don notified. Vadim Bernal RN 03/22/13618 axwel Kevyn pereyra MD - 03/22/2013 5:15 AM PST ED Provider Notes by Kevyn Don MD at 03/22/13514 Author: Kevyn Don MD Service: (none) Author Type: Physician Filed: 03/22/13715 Date of Service: 03/22/13514 Status: Signed Automation And Controls Instructor: Kevyn Don MD (Physician) Related Notes: Related Note by Antonella Kendrick PA-C (Physician Rug Cleaner - Certified) filed at 03/22/13607 I have [...] Kendrick PA-C Service: (none) Author Type: Physician Rug Cleaner - Cer tified Filed: 03/22/13607 Date of Service: 03/22/13 0515 Status: Signed Automation And Controls Instructor: Antonella Kendrick PA-C (Physician Rug Cleaner - Certified) Related Notes: Cosigned by Kevyn Don MD (Physician) filed at 03/22/[address] [facility] Department of Emergency Medicine History of Present Illness Patient Identification Kevyn Guzman is a 57 y.o. male. Patient information was obtained from patient.and prior records History/Exam limitations: patient is developmentally delayed. Patient presented to the Emergency Department by: [facility] 1723 Chief Complaint Chief Complaint Patient presents [...] ulcer s. He is being sent to [place] for endoscopic biopsy of the nodule and [...] - CHOLECYSTECTOMY; Surgeon: Jevon Vargas DO; Location: [facility] MAIN OR; Service: General; Laterality: N/A; Abdominal surgery Cholecystectomy Skin cancer excision 10/10/2012 Procedure: EXCISION - SKIN CANCER; Surgeon: Sy Fierro MD; Location: [facility] MAIN OR ; Service: Plastics; Laterality: Left; upper arm and upper back w/frozen section Esophagogastroduodenoscopy 03/03/2013 Procedure: ESOPHAGOGASTRODUODENOSCOPY; Surgeon: Howie Gibson MD; Location: [facility] ENDOSCOPY; S ervice: Gastroenterology; Laterality: N/A; Colonoscopy 03/04/2013 Procedure: COLONOSCOPY; Surgeon: Howie Gibson MD; Location: [facility] ENDOSCOPY; Service: Gastroe nterology; Laterality: [...] daily. 03/05/13 03/05/14 Ye ladonna Martínez MD polyethylene glycol (GLYCOLAX) powder daily. [...] care of patient to Dr. Don at [facility]. Report has been given Records Reviewed [...] 03/22/13442 Date of Service: 03/22/13442 Status: Signed Automation And Controls Instructor: Vadim Bernal RN (Registered Nurse) Patient gowned, bed rails up x1, call light within reach. Plan of care discussed, care boar d updated. Vadim Bernal RN 03/22/13442 onver ivana Transaction, Provider Unknown - 03/22/2013 4:41 AM PST ED Notes by Vadim Bernal RN at 03/22/13440 Author: Vadim Bernal RN Service: (none) Author Type: Registered Nurse Filed: 03/22/13440 Date of Service: 03/22/13440 Status: Signed Automation And Controls Instructor: Vadim Bernal RN (Registered Nurse) Patient resides at [facility]. Vadim Bernal RN 03/22/13440 onver ivana Transaction, Provider Unknown - 03/22/2013 4:39 AM PST ED Notes by Vadim Bernal RN at 03/22/13438 Author: Vadim Bernal RN Service: (none) Author Type: Registered Nurse Filed: 03/22/13439 Date of Service: 03/22/13438 Status: Signed Automation And Controls Instructor: Vadim Bernal RN (Registered Nurse) "I have [...] 03/22/13438 Date of Service: 03/22/13438 Status: Signed Automation And Controls Instructor: Vadim Bernal RN (Registered Nurse) Bed:03
Expected [...] | | | | [address] [place], | | | | | | [place] [address] | | | | | | [phone] | | | | | | | [...] in this encounter Results External Lab: CBC (03/22/2013 5:20 AM PST) + + + + + + | Component | Value | Ref Range | Performed | Pathologist | | | | | At | Signature | + + + + + + | WBC | 8.3Comment: Testing | 3.8 - 11.0 K/uL | EXTERNAL | | | | performed at [facility];[address] | | LAB | | | | [address];[place], [place] | | | | | | [address] | | | | + + + + + + | Non- | 4.94Comment: Testing | 4.20 - 5.70 | EXTERNAL | | | Red Blood | performed at [facility];[address] | M/uL | LAB | | | Cells | [address];[place] | | | | | Counted | [address] | | | | + + + + + + | Hemoglobin | 13.6Comment: Testing | 13.2 - 17.0 | EXTERNAL | | | | performed at [facility];[address] | g/dL | LAB | | | | [address];[place] | | | | | | [address] | | | | + + + + + + | Hematocrit, | 41.2Comment: Testing | 39.0 - 50.0 % | EXTERNAL | | | POC | performed at [facility];[address] | | LAB | | | | [address];[place] | | | | | | [address] | | | | + + + + + + | MCV | 83.3Comment: Testing | 80.0 - 100.0 fl | EXTERNAL | | | | performed at [facility];[address] | | LAB | | | | [address];[place] | | | | | | [address] | | | | + + + + + + | MCH | 27.4Comment: Testing | 27.0 - 34.0 pg | EXTERNAL | | | | performed at [facility];[address] | | LAB | | | | [address];[place] | | | | | | [address] | | | | + + + + + + | MCHC | 32.9Comment: Testing | 32.0 - 35.5 | EXTERNAL | | | | performed at [facility];[address] | g/dL | LAB | | | | [address];[place] | | | | | | [address] | | | | + + + + + + | RDW-CV | 42.4Comment: Testing | 37 - 53 fl | EXTERNAL | | | | performed at [facility];[address] | | LAB | | | | [address];[place] | | | | | | [address] | | | | + + + + + + | Platelet | 284Comment: Testing | 150 - 400 K/uL | EXTERNAL | | | Count | performed at [facility];[address] | | LAB | | | Plasma | [address];[place] | | | | | | [address] | | | | + + + + + + | MPV | 7.1Comment: Testing | fl | EXTERNAL | | | | performed at [facility];[address] | | LAB | | | | [address];[place] | | | | | | [address] | | | | + + + + + + | Differentia | AUTOMATEDComment: | | EXTERNAL | | | l Type | Testing performed at | | LAB | | | | [facility];[address];[place] [address] | | | | + + + + + + | % Segmented | 48.9Comment: Testing | % | EXTERNAL | | | | performed at [facility];[address] | | LAB | | | Neutrophils | [address];[place] | | | | | | [address] | | | | + + + + + + | % | 35.8Comment: Testing | % | EXTERNAL | | | Lymphocytes | performed at [facility];[address] | | LAB | | | | [address];[place] | | | | | | [address] | | | | + + + + + + | % Monocytes | 10.2Comment: Testing | % | EXTERNAL | | | | performed at [facility];[address] | | LAB | | | | [address];[place] | | | | | | [address] | | | | + + + + + + | % | 4.5Comment: Testing | % | EXTERNAL | | | Eosinophils | performed at [facility];[address] | | LAB | | | | [address];[place] | | | | | | [address] | | | | + + + + + + | % Basophils | 0.6Comment: Testing | % | EXTERNAL | | | | performed at [facility];[address] | | LAB | | | | [address];[place] | | | | | | [address] | | | | + + + + + + | Absolute | 4.1Comment: Testing | 1.9 - 7.4 K/uL | EXTERNAL | | | Segmented | performed at [facility];[address] | | LAB | | | Neutrophils | [address];[place] | | | | | | [address] | | | | + + + + + + | Absolute | 3.0Comment: Testing | 1.0 - 3.9 K/uL | EXTERNAL | | | Lymphocytes | performed at [facility];[address] | | LAB | | | | [address];[place] | | | | | | [address] | | | | + + + + + + | Absolute | 0.9 (H)Comment: Testing | 0 - 0.8 K/uL | EXTERNAL | | | Monocytes | performed at [facility];[address] | | LAB | | | | [address];[place] | | | | | | [address] | | | | + + + + + + | Absolute | 0.4Comment: Testing | 0 - 0.5 K/uL | EXTERNAL | | | Eosinophils | performed at [facility];[address] | | LAB | | | | [address];[place] | | | | | | [address] | | | | + + + + + + | Absolute | 0.0Comment: Testing | 0 - 0.1 K/uL | EXTERNAL | | | Basophils | performed at [facility];[address] | | LAB | | | | [address];[place] | | | | | | [address] | | | | + + + [...] EXTERNAL | | | | performed at [facility];[address] | | LAB | | | | [address];[place], [place] | | | | | | [address] | | | | + + + [...] EXTERNAL | | | | performed at [facility] | | LAB | | | | [address];[place] | | | | | | [address] | | | | + + + [...] EXTERNAL | | | | performed at [facility];[address] | mmol/L | LAB | | | | [address];[place] | | | | | | [address] | | | | + + + + + + | K | 4.1Comment: Testing | 3.5 - 4.9 | EXTERNAL | | | | performed at [facility];[address] | mmol/L | LAB | | | | [address];[place] | | | | | | [address] | | | | + + + + + + | Cl | 103Comment: Testing | 99 - 109 mmol/L | EXTERNAL | | | | performed at [facility];[address] | | LAB | | | | [address];[place] | | | | | | [address] | | | | + + + + + + | CO2 | 31Comment: Testing | 23 - 32 mmol/L | EXTERNAL | | | | performed at [facility];[address] | | LAB | | | | [address];[place] | | | | | | [address] | | | | + + + + + + | Anion Gap | 9Comment: Testing | 5 - 20 mmol/L | EXTERNAL | | | | performed at [facility];[address] | | LAB | | | | [address];[place] | | | | | | [address] | | | | + + + + + + | Glucose, | 257 (H)Comment: Testing | 65 - 99 mg/dL | EXTERNAL | | | Fasting | performed at [facility];[address] | | LAB | | | | [address];[place] | | | | | | [address] | | | | + + + + + + | BUN | 16Comment: Testing | 8 - 25 mg/dL | EXTERNAL | | | | performed at [facility];[address] | | LAB | | | | [address];[place] | | | | | | [address] | | | | + + + + + + | Creatinine | 1.34 (H)Comment: Testing | 0.70 - 1.30 | EXTERNAL | | | | performed at [facility];[address] | mg/dL | LAB | | | | [address];[place] | | | | | | [address] | | | | + + + + + + | BUN/Creatin | 12Comment: Testing | | EXTERNAL | | | ine Ratio | performed at [facility];[address] | | LAB | | | | [address];[place] | | | | | | [address] | | | | + + + + + + | Calcium | 9.3Comment: Testing | 8.5 - 10.2 | EXTERNAL | | | | performed at [facility];[address] | mg/dL | LAB | | | | [address];[place] | | | | | | [address] | | | | + + + + + + | Protein, | 7.2Comment: Testing | 6.3 - 8.2 g/dL | EXTERNAL | | | Total | performed at [facility];[address] | | LAB | | | | [address];[place] | | | | | | [address] | | | | + + + + + + | Albumin | 3.3 (L)Comment: Testing | 3.6 - 5.0 g/dL | EXTERNAL | | | | performed at [facility];[address] | | LAB | | | | [address];[place] | | | | | | [address] | | | | + + + + + + | Globulin | 3.9Comment: Testing | 1.3 - 4.9 g/dL | EXTERNAL | | | | performed at [facility];[address] | | LAB | | | | [address];[place] | | | | | | [address] | | | | + + + + + + | A/G Ratio | 0.8 (L)Comment: Testing | 1.0 - 2.4 | EXTERNAL | | | | performed at [facility];[address] | | LAB | | | | [address];[place] | | | | | | [address] | | | | + + + + + + | Bilirubin | 0.4Comment: Testing | 0.1 - 1.5 mg/dL | EXTERNAL | | | Total | performed at [facility];[address] | | LAB | | | | [address];[place] | | | | | | [address] | | | | + + + + + + | ALP, | 100Comment: Testing | 35 - 115 U/L | EXTERNAL | | | External | performed at [facility];[address] | | LAB | | | | [address];[place] | | | | | | [address] | | | | + + + + + + | AST | 22Comment: Testing | 10 - 45 U/L | EXTERNAL | | | | performed at [facility];[address] | | LAB | | | | [address];[place] | | | | | | [address] | | | | + + + + + + | ALT | 24Comment: Testing | 10 - 65 U/L | EXTERNAL | | | | performed at [facility];[address] | | LAB | | | | [address];[place] | | | | | | [address] | | | | + + + [...] | | | | | | at [facility];[address];[place] [address] | | | | + + + [...]
--- OUTSIDE RECORDS SUMMARY | ~2019-10-12 | XMS | Encounter Summary ---
Demographics + + + | Address | [address] | | | [place] [address] | + + + | Home Phone [...] + | Sammi Kohler | ECON | [place] [address] | | + + + + + Care Team Providers + +------+ + | Care Talent Management Specialist Name | Role | Phone | + +------+ + PCP | Unavailable | + +------+ + Encounter Details +--------+ + + + + | Date | Type | Department | Care Team | Description | +--------+ + + + + | 10/20/ | [facility] | [facility] | Darrion Ruano MD | Chest pain in adult; | | 2018 - | Encounter | [facility] | [address] | Chronic kidney | | | | CLINICAL DECISION | [place] [address] | disease, unspecified | | 10/21/ | | [address] [facility] | [phone] | CKD stage | | 2018 | | [place], [place] | | | | | | [address] | | | | | | [phone] | | | +--------+ + + + [...] Summaries by Tj Handley DO at 10/21/17 6338 Author: Tj Handley DO Service: Hospitalist Author Type: Physician Filed: 10/21/17 1183 Date of Service: 10/21/17 1458 Status: Signed Design Analyst: Tj Handley DO (Physician) [facility] Service: Hospitalist Physician Discharge Summary [...] [facility]; Service: Gastroen terology; Laterality: N/A; ESOPHAGOGASTRODUODENOSCOPY N/A 03/03/2013 Procedure: ESOPHAGOGASTRODUODENOSCOPY; Surgeon: Howie Gibson MD; Location: [facility] END[facility]; Se rvice: Gastroenterology; [...] FROZEN SECTION; Surgeon: Sy Fierro MD; Location: [facility] MAIN OR; Service: Plastics; Laterality: [...] t he aorta is performed by the nuclear cardiology technologist. Dose reduction techniques were used including [...] There is no pulmonary fibrosis. There is utbm-yw-wxgfcfrv degenerative disc disease of the thoracic spin [...] And Rest) Result Date: 10/16/2017 NORAH GR NM MYOCARDIAL PERFUSION SPECT - [...] Using the risk stratification system at our [facility], this examination equates to at least a low risk based on this imaging, arising f rom the criteria below (1). Note that this should be interfaced with clinical and other data , potentially affecting final categorization. 1. [place] [employer] and [employer] Scientific Statement. Circulation (2008); 118: p 8108-3177 Selection Destin t Definition Low Risk 1.Normal [...] Vmean: 1.31 m/s LVOT VTI: 35.95 cm Baseball Glove Shaper: Authenticated by: GINA INGRAM MD Report Date/Time: [...] hours. No results for input(s): PHART, PO2ART, FCP1CYC, Y3EXEPYK, BEART in the last 168 hours. Recent Labs Lab 10/20/17 1830 10/18/17 0536 10/17/17 1944 10/17/17 0522 APTT 26 66* 49* < > 71* INR 1.5 2.2 -- -- 1.4 < > = values in this interval not displayed. No results for input(s): TSH, T3FREE, FREET4 in the last 168 hours. Recent Labs Lab 10/21/17 0329 10/20/17 2353 10/20/17 1830 10/14/17 1820 CKTOTAL -- -- 103 61 TROPONINI <0.020 <0.020 -- <0.020 CKMBINDEX UNABLE TO CALCULATE UNABLE TO CALCULATE 2.7 7.0 Disposition: home No discharge procedures on file. Follow up: Lou Pereyra Call in 1 week For next available appointment [facility] Emergency Department [address] [place] [address] Go to If symptoms worsen Lou Pereyra [...] tablet Refills: 0 Commonly known as: LAMICTAL icpmxplps-qhlfchtt-dtqverhgh hydroxide-simethicone Refills: 0 lisinopril 40 MG tablet [...] 10/21/171339 Date of Service: 10/21/171339 Status: Signed Design Analyst: Silvino Almanza RN (Registered Nurse) Discharge instructions reviewed with patient. IV removed. Patient discharged to home via di al-a-ride. No questions or concerns at this time. onver ivana Transaction, Provider Unknown - 10/21/2017 3:49 AM PDT Pharmacy Note by Ema Walker RPH at 10/21/17348 Author: Ema Walker RPH Service: Pharmacy Author Type: Pharmacist Filed: 10/21/17348 Date of Service: 10/21/17348 Status: Signed Design Analyst: Ema Walker RPH (Pharmacist) Clinical Pharmacy [...] 10/21/17212 Date of Service: 10/21/17212 Status: Signed Design Analyst: Ralph Weiss RN (Registered Nurse) End of shift review: Restraints: N/A Blood: N/A Protocols: Completed Parameter Medications: Completed Signed & Held Orders: Released and Reviewed docume nted in this encounter H&P Notes Darrion Ruano MD - 10/20/2017 9:11 PM PDT H&P by Darrion Ruano MD at 10/20/172110 Author: Darrion Ruano MD Service: (none) Author Type: Physician Filed: 10/21/17 0450 Date of Service: 10/20/172110 Status: Addendum Design Analyst: Darrion Ruano MD (Physician) Related Notes: Original Note by Darrion Ruano MD (Physician) filed at 10/21/17 0314 [facility] Service: Hospitalist Admission History & [...] GE junction Hypercholesterolemia 07/08/2013 Hyperlipidemia 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 108 mcg/act Historical Provider Vqnyt-B-Xlpqtqnzsyyby (BEANO) TABS Take 150 Units by mouth [...] by m outh at bedtime Historical Provider dukiilvzs-xyemnjbx-uayzanumt hydroxide-simethicone Take 40 mLs by mouth daily [...] daily. Take 1 tablet by mouth at [facility]. Hold for Dizziness and Heart Rate [...] Using the risk stratification system at our [facility], this examination equates to at least a low risk based on this imaging, arising f rom the criteria below (1). Note that this should be interfaced with clinical and other data , potentially affecting final categorization. 1. [place] [employer] and [employer] Scientific Statement. Circulation (2008); 118: p 6092-4334 Selection Destin t Definition Low Risk 1.Normal [...] - Allergic to nitroglycerin - Tylenol prn; [place]; IV morphine - Topical lidoderm patch # [...] aripiprazole - Clonazepam 1 mg qd - Dean 300 mg bid - Paroxetine 40 mg [...] from the original. ED Notes by Farzaneh Castlelanos RN at 10/20/172053 Author: Farzaneh Castellanos RN Service: (none) Author Type: Registered Nurse Filed: 10/20/172054 Date of Service: 10/20/172053 Status: Signed Design Analyst: Farzaneh Castellanos RN (Registered Nurse) Into [...] 0100 Date of Service: 10/20/171817 Status: Signed Design Analyst: Jose Wagner DO (Physician) [facility] Department of Emergency Medicine 6:18 PM History of Present Illness Patient Identification Norah Gr is a 61 y.o. male. Patient information was obtained from patient. History/Exam limitations: none. Patient presented to the Emergency Department by: [facility] 1222 History of Presenting Illness The patient [...] [facility]; Service: Gastroen terology; Laterality: N/A; ESOPHAGOGASTRODUODENOSCOPY N/A 03/03/2013 Procedure: ESOPHAGOGASTRODUODENOSCOPY; Surgeon: Howie Gibson MD; Location: [facility] END[facility]; Se rvice: Gastroenterology; [...] FROZEN SECTION; Surgeon: Sy Fierro MD; Location: [facility] MAIN OR; Service: Plastics; Laterality: Left; forearm UNLISTED PROCEDURE ARTHROSCOPY UPPER GASTROINTESTINAL ENDOSCOPY Prior to Admission medications Medication Sig Start Date End Date Taking? Authorizing Provider Albuterol Sulfate (VENTOLIN HFA IN) Inhale 2 puffs into the lungs as needed. 108 mcg/act Historical Provider Cnqky-B-Ediqetswhzkgs (BEANO) TABS Take 150 Units by mouth [...] by m outh at bedtime Historical Provider lypwpsayq-wfpmbtqk-bbsdzlmjg hydroxide-simethicone Take 40 mLs by mouth daily [...] daily. Take 1 tablet by mouth at [facility]. Hold for Dizziness and Heart Rate [...] of children: 1 Years of education: s. [employer] Occupational History disabled Social History Main Topics [...] Procedure Component Value Ref Range Date/Time Procalcitonin [[id number]] Collected: 10/20/171829 Order Status: Completed Updated: 10/20/172228 PROCALCITONIN <0.05 <0.5 ng/mL C-reactive protein [[id number]] (Abnormal) Collected: 10/20/171829 Order Status: Completed Updated: 10/20/172220 CRP 0.7 (H) <0.5 mg/dL Sedimentation rate, automated [[id number]] (Abnormal) Collected: 10/20/171829 Order Status: Completed Updated: 10/20/172208 ESR 36 (H) 0 - 20 mm/Hr Cardiac Panel [[id number]] (Abnormal) Collected: 10/20/171829 Order Status: Completed Updated: [...] ng/mL CK-MB Index 2.7 POC cardiac troponin [[id number]] Collected: 10/20/171831 Order Status: Completed Updated: 10/20/171856 POC CARDIAC TROPONIN 0.00 0.00 - 0.10 ng/mL I personally reviewed the lab results and they have been posted to the chart. Pertinent po sitive and negative findings have been addressed appropriately and I have discussed any abno rmal labs with the patient. Radiology and EKG Evaluation ====EKG Interpretation==== Time: 1822 Rate: 84 Rhythm: Sinus [place]: Normal Intervals: Left atrial enlargement ST: Normal Other: None Compared to 10/13/2017 there is no change Overall: Nonspecific EKG Interpreted by Jose Wagner D.O. Rhythm strip analysis: Normal Sinus rhythm. ====EKG Interpretation==== Time: 2012 Rate: 63 Rhythm: Sinus [place]: Normal Intervals: Normal ST: Nonspecific T wave [...] the aorta is perform ed by the nuclear cardiology technologist. Dose reduction techniques were used including [...] There is no pulmonary fibrosis. There is avho-uj-vebrzelu degenerative disc disease of the thoracic spine. [...] in 1 week For next available appointment [facility] Emergency Department Emergency Medicine Go to If symptoms worsen [address] [place] [address] Discharge Medications: Current Discharge Medication List Procedures [...] 10/20/171817 Date of Service: 10/20/171817 Status: Signed Design Analyst: Leanna Cheng RN (Registered Nurse) Bed: [...] 10/21/17955 Date of Service: 10/21/17955 Status: Signed Design Analyst: Silvino Almanza RN (Registered Nurse) Problem: [...] 10/21/17204 Date of Service: 10/21/17204 Status: Signed Design Analyst: Ralph Weiss RN (Registered Nurse) Problem: [...] 10/20/172301 Date of Service: 10/20/172301 Status: Signed Design Analyst: Joe Babcock RPH (Pharmacist) Rx Admission Medication History Note Pharmacy is unable to obtain best possible medication history at this time. Patient is not able to provide medication information as he states all of the oral medications are provided in a bubble pack. Outpatient pharmacy is not open at this time. Patient was able to confirm insulin and adjusted these on the [employer] APPRENTICE list. No family available at the time [...] | | | | | | [place] [address] | | | | | | [phone] | | | | | | | [...] | LAB | | | | [address];[place], [place] | | | | | | [address] | | | | + + + [...] | performed at [facility];[address] | | LAB | | | | [address];[place], [place] | | | | | | [address] | | | | + + + [...] - 1.030 | EXTERNAL | | | [place], | | | LAB | | | [...] | | | Urine | performed at [facility];[address] | | LAB | | | | [address];[place] | | | | | | [address] | | | | + + + [...] | | | | | ROSARIO ESPAÑA (206) on | | | | | | 10/21/2017 12:29:54 PM | | | | + + + + + + + + | Specimen | + + | | + + + + + | Narrative | Performed At | + + + | Historically converted procedure from [facility] Epic environment | EXTERNAL LAB | [...] at | | | | | | [facility];[address] [place] [address] | | | | | | Blvd;[place] [address] | | | | + + + [...] | | | | | | ACUTE AR Testing | | | | | | performed at [facility];[address] | | | | | | [address];[place], [place] | | | | | | [address] | | | | + + + [...] | | | Basophils | performed at [facility], [address] | [address] | LAB | | | | [address], | | | | | | [place] [address] | | | | + + + [...] EXTERNAL | | | | performed at [facility], [address] | | LAB | | | | [address], | | | | | | [place] [address] | | | | + + + [...] EXTERNAL | | | | performed at [facility], [address] | | LAB | | | | [address], | | | | | | [place] [address] | | | | + + + [...] | | | | performed at [facility], [address] | | | | | | [facility], | | | | | | [place] [address] | | | | + + + [...] at | | | | | | [facility];[address] | | | | [address];[place] [address] | | | | + + + [...] | | | | | | ACUTE AR Testing | | | | | | performed at [facility];[address] | | | | | | [facility];[place], [place] | | | | | | [address] | | | | + + + [...] | | | | | ONLY, -COMPUTER (353), | | | | | | news video editor Ashley Fan | | | | | | (79) on 10/21/2017 | | | | | | 3:43:07 AM | | | | + + + + + + + + | Specimen | + + | | + + + + + | Narrative | Performed At | + + + | Historically converted procedure from [facility] Epic environment | EXTERNAL LAB | [...] of the aorta is performed by the nuclear cardiology technologist. Dose | | | reduction techniques [...] | | | pulmonary fibrosis. There is httc-dw-oiiuqldr degenerative disc | | | disease of [...] + + | Joaquin Ramos - 09/19/2018 1:06 AM SHALONDA GR1954AFSHAN | | CHEST10/20/2017 7:55 PM INDICATION: Chest [...] of the aorta is performed by the nuclear cardiology technologist. Dose reduction techniques | | were [...] no pulmonary | | fibrosis. There is pjjg-rz-mxjzihwz degenerative disc disease of the thoracic spine. [...] | | | | | |There is bzrg-gm-ydfwqfqf degenerative disc disease of the thoracic spine. [...] | | at [facility];[address] [place] [address] | | | | | | [facility];[place] [address] | | | | + + + [...] | performed at [facility];[address] | | LAB | | | | [address];[place], [place] | | | | | | [address] | | | | + + + [...] | performed at [facility] | | LAB | | | | [address];[place] | | | | | | [address] | | | | + + + [...] | | | | | ONLY, -COMPUTER (052), | | | | | | news video editor Ashley Fan | | | | | | (79) on 10/21/2017 | | | | | | 7:33:07 PM | | | | + + + + + + + + | Specimen | + + | | + + + + + | Narrative | Performed At | + + + | Historically converted procedure from [facility] Epic environment | EXTERNAL LAB | [...]
--- OUTSIDE RECORDS SUMMARY | ~2019-10-12 | XMS | Encounter Summary ---
Demographics + + + | Address | [address] | | | [place] [address] | + + + | Home Phone [...] + | Sammi Kohler | ECON | [place] [address] | | + + + + + Care Team Providers + +------+ + | Care Aircraft Engine Cylinder Mechanic Name | Role | Phone | + +------+ + PCP | Unavailable | + +------+ + Encounter Details +--------+ + + + + | Date | Type | Department | Care Team | Description | +--------+ + + + + | 01/27/ | Emergency | [facility] | Zach Tena, | Non-cardiac chest | | 2015 - | | [facility]ICAL [facility] | MD [address] | pain | | | | EMERGENCY CENTER | [place] [address] | | | 01/28/ | | [address] | [phone] | | | 2014 | | [place], [place] | | | | | | [address] | | | | | | [phone] | | | +--------+ + + + [...] QUINN Harrell LICSW Service: (none) Author Type: Lowerator Operator Filed: 01/27/152047 Date of Service: 01/27/152043 Status: Signed Stock Sorter: QUINN Harrell LICSW (Lowerator Operator) 01/27/152036 Discharge Planning Evaluation Admitting Diagnosis Back pain and chest pain. Readmission Other (comment) (It appears it may be exactly 30 days) Living Arrangements Other (Comment) (roommate) Support Systems Moravian/pedro luis community;Friends/neighbors Type of Residence Private residence [...] of the elders is Anthony Loya - [phone]) from his islam to discussed discharge planning, Pt is a 59 y.o., male Patient's PCP is: JERRELL GUTIÉRREZ Patient's insurance: Medicare Coverage concerns: None expressed Medication coverage/concerns: None expressed [facility] Bedside Delivery: Community resources utilized / needed: TBD Assistance in transportation: No Dial-[employer]-Ride Identification of any specific education / training: TBD Barriers to Discharge / Alternative housing needed: Patient would benefit from living in an AFH. Patient was living in an AFH, but he moved out. Anticipated DCP: Home with support from his islam. Jenn Garg onver ivana Badillo, Provider Unknown - 01/27/2015 8:32 PM PST Case Management by QUINN Harrell LICSW at 01/27/152031 Author: QUINN Harrell LICSW Service: (none) Author Type: Lowerator Operator Filed: 01/27/152035 Date of Service: 01/27/152031 Status: Signed Stock Sorter: QUINN Harrell LICSW (Lowerator Operator) LARA met with the patient and spoke with his islam elders with the patient's permission. CM spoke with Anthony Loya [phone] about patient's difficulties managing his basic daily ne eds. CM spoke with his about how patient would benefit from living in an AFH. Mr. Loya is going to speak with the patient's Paez to ensure patient obtains the assistance needed. CM also provided information about community supports as well as Consistent Care information. The islam elders will explore options to assist. Patient is being admitted. docume nted in this encounter ED Notes Conversion Transaction, Provider Unknown - 01/27/2015 11:05 PM PSTFormatting of this note m ight be different from the original. ED Notes by Yanna Loera RN at 01/27/152304 Author: Yanna Loera RN Service: (none) Author Type: Registered Nurse Filed: 01/27/152304 Date of Service: 01/27/152304 Status: Signed Stock Sorter: Yanna Loera RN (Registered Nurse) Pt fed per order. Call light within reach. Yanna Loera RN 01/27/152304 onver ivana Transaction, Provider Unknown - 01/27/2015 8:09 PM PST ED Notes by Yanna Loera RN at 01/27/152008 Author: Yanna Loera RN Service: (none) Author Type: Registered Nurse Filed: 01/27/152008 Date of Service: 01/27/152008 Status: Signed Stock Sorter: Yanna Loera RN (Registered Nurse) Pt updated [...] 0804 Date of Service: 01/27/151943 Status: Signed Stock Sorter: Zach Tena MD (Physician) Formerly [facility] Department of Emergency Medicine 7:44 PM [...] Depression Renal failure ARF (acute renal failure) ([facility]) 03/02/2013 COPD [facility]ronic obstructive pulmonary disease) [facility] [...] pain Stroke (HCC) TIA (transient ischemic attack) 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 Authorizing Provider Albuterol Sulfate (VENTOLIN HFA IN) Inhale 2 puffs into the lungs as needed. 108 mcg/act Historical Provider Umvmg-S-Zdqkmiwiorbud (BEANO) TABS Take 150 Units by mouth [...] 100 mg by mouth nightly. Historical Provider eyydekqfv-inkdczrq-yqmlrdarb hydroxide-simethicone Take 40 mLs by mouth daily [...] Lives alone x 1 wk, moved from [facility], , 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 2 falls [...] 7:56 PM Patient Case is discussed with social director, who says they will call consistent c [...] Oral Given 01/27/152006) Filed Vitals: 01/27/15 1837 01/27/15201201/27/15211301/27/157 BP: 119/58 122/80 126/78 126/60 Pulse: 71 [...] Value Ref Range Date/Time CBC with differential [[id number]] (Abnormal) Collected: 01/27/152003 Order Status: Completed Specimen [...] Estimate ADEQUATE MORPHOLOGY 2+ Comprehensive metabolic panel [[id number]] (Abnormal) Collected: 01/27/152003 Order Status: Completed Specimen [...] 65 U/L EGFR >60 >60 mL/min/1.73m2 Lipase [[id number]] Collected: 01/27/152003 Order Status: Completed Specimen Information: Blood Updated: 01/27/152034 LIPASE 195 73 - 393 U/L Troponin I, Lab [[id number]] Collected: 01/27/152003 Order Status: Completed Specimen Information: Blood Updated: 01/27/152034 TROPONIN I <0.020 0.00 - 0.10 ng/mL Protime [[id number]] Collected: 01/27/152003 Order Status: Completed Specimen Information: Blood Updated: 01/27/152026 INR 1.6 POC cardiac troponin [[id number]] Collected: 01/27/152004 Order Status: Completed Updated: 01/27/152018 [...] airspa ce disease or pleural effusion. EKG 1851 NSR rate of 60 Biphasic T waves, flipped T waves which are new compared to previous EKG EKG 2014 NSR rate of 72 Appears unchanged from initial EKG done today. ED Diagnosis Final diagnosis Non-cardiac chest pain Disposition: ED Disposition Discharge Condition at discharge: Stable Follow-up Information Follow up With Details Comments Contact [facility] If symptoms worsen [address] [facility] [address] Jerrell Gutiérrez DO [address] [place] [address] Jerrell Gutiérrez DO In 1 week for follow up [address] [place] [address] Discharge Medications: New Prescriptions No new medications Procedures Additional Documentation Procedures Attending Note: Documentation assistance provided by Lesly Looney (Scribe). Information recorded by the scribe has been reviewed and validated by me. Troy laughlin with its contents. MD Zach Church MD 02/03/15 08 onversion Transacti on, Provider Unknown - 01/27/2015 7:01 PM PSTFormatting of this note might be different fro m the original. ED Notes by Tarah Ross at 01/27/151900 Author: Tarah Ross Service: (none) Author Type: Wheel Press Operator Filed: 01/27/151900 Date of Service: 01/27/151900 Status: Signed Stock Sorter: Tarah Ross (Wheel Press Operator) EKG completed and shown to James Ross 01/27/151900 onver ivana Transaction, Provider Unknown - 01/27/2015 6:53 PM PST ED Notes by Jaye Meraz at 01/27/151852 Author: Jaye Meraz Service: (none) Author Type: Wheel Press Operator Filed: 01/27/151852 Date of Service: 01/27/151852 Status: Signed Stock Sorter: Jaye Meraz (Wheel Press Operator) EKG completed by Aide Meraz 01/27/151852 docume [...] | | | | | [address] [place], | | | | | | [place] [address] | | | | | | [phone] | | | | | | | [...] EXTERNAL | | | | performed at [facility];[address] | | LAB | | | [address];[place] | | | | | | [address] | | | | + + + + + + | Clarity, | CLEARComment: Testing | | EXTERNAL | | | Urine | performed at [facility];[address] | | LAB | | | | [address];[place] | | | | | | [address] | | | | + + + + + + | Specific | 1.012Comment: Testing | 1.002 - 1.030 | EXTERNAL | | | [place], | performed at [facility];[address] | | LAB | | | Urine | [address];[place] | | | | | | [address] | | | | + + + + + + | Leukocyte | NEGATIVEComment: Testing | | EXTERNAL | | | Esterase, | performed at [facility];[address] | | LAB | | | Urine | [address];[place] | | | | | | [address] | | | | + + + + + + | Nitrite, | NEGATIVEComment: Testing | | EXTERNAL | | | Urine | performed at [facility];[address] | | LAB | | | [address];[place] | | | | | | [address] | | | | + + + + + + | Urobilinoge | NORMALComment: Testing | mg/dL | EXTERNAL | | | n, Urine | performed at [facility];[address] | | LAB | | | [address];[place] | | | | | | [address] | | | | + + + + + + | Protein, | NEGATIVEComment: Testing | mg/dL | EXTERNAL | | | Urine | performed at [facility];[address] | | LAB | | | | [address];[place] | | | | | | [address] | | | | + + + + + + | pH, Urine | 5.0Comment: Testing | 5.0 - 8.0 | EXTERNAL | | | | performed at [facility];[address] | | LAB | | | | [address];[place] | | | | | | [address] | | | | + + + + + + | Blood, | NEGATIVEComment: Testing | | EXTERNAL | | | Urine | performed at [facility];[address] | | LAB | | | | [address];[place] | | | | | | [address] | | | | + + + + + + | Ketones | NEGATIVEComment: Testing | mg/dL | EXTERNAL | | | | performed at [facility];[address] | | LAB | | | | [address];[place] | | | | | | [address] | | | | + + + + + + | Bilirubin, | NEGATIVEComment: Testing | | EXTERNAL | | | Urine | performed at [facility];[address] | | LAB | | | [address];[place] | | | | | | [address] | | | | + + + + + + | Glucose, | >500 (A)Comment: Testing | mg/dL | EXTERNAL | | | Urine | performed at [facility];[address] | | LAB | | | | [address];[place] | | | | | | [address] | | | | + + + + + + | WBC, UA | 3-5Comment: Testing | 0 - 5 /hpf | EXTERNAL | | | | performed at [facility];[address] | | LAB | | | | [address];[place] | | | | | | [address] | | | | + + + + + + | RBC, UA | 0-2Comment: Testing | 0 - 2 /hpf | EXTERNAL | | | | performed at [facility];[address] | | LAB | | | | [address];[place] | | | | | | [address] | | | | + + + + + + | Bacteria, | NONE SEENComment: | | EXTERNAL | | | UA | Testing performed at | | LAB | | | | [facility];[address];[place] [address] | | | | + + + + + + | Epithelial | 11-15Comment: Testing | /lpf | EXTERNAL | | | Cells | performed at [facility];[address] | | LAB | | | [address];[place] | | | | | | [address] | | | | + + + + + + | Mucus, | 1+Comment: Testing | | EXTERNAL | | | Urine | performed at [facility];[address] | | LAB | | | | [address];[place] | | | | | | [address] | | | | + + + + + + | HYALINE | 0-2Comment: Testing | | EXTERNAL | | | CASTS UA | performed at [facility];[address] | | LAB | | | | [address];[place], [place] | | | | | | [address] | | | | + + + [...] + + + | NORAH M GR XR CHEST 2 VIEW FRONTAL AND [...] | | | | | ONLY, -COMPUTER (692), | | | | | | editor in chief Keyla Gregory | | | | | | (25) on 01/28/2015 | | | | | | 3:37:21 AM | | | | + + + + + + + + | Specimen | + + | | + + + + + | Narrative | Performed At | + + + | Historically converted procedure from [facility] Epic environment | EXTERNAL LAB [...] | | | | | | ACUTE GA Testing | | | | | | performed at [facility] | | | | | | [address];[place], [place] | | | | | | [address] | | | | + + + [...] | | | | | performed at [facility] | | | | | | [facility];[place], [place] | | | | | | [address] | | | | + + + [...] K/uL | LAB | | | | [facility];[address];[place] [address] | | | | + + + + + + | Non- | 5.40Comment: Testing | 4.20 - 5.70 | EXTERNAL | | | Red Blood | performed at [facility];[address] | M/uL | LAB | | | Cells | [address];[place] | | | | | Counted | [address] | | | | + + + + + + | Hemoglobin | 12.7 (L)Comment: Testing | 13.2 - 17.0 | EXTERNAL | | | | performed at [facility];[address] | g/dL | LAB | | | | [address];[place] | | | | | | [address] | | | | + + + + + + | Hematocrit, | 40.0Comment: Testing | 39.0 - 50.0 % | EXTERNAL | | | POC | performed at [facility];[address] | | LAB | | | | [address];[place] | | | | | | [address] | | | | + + + + + + | MCV | 74.0 (L)Comment: Testing | 80.0 - 100.0 fl | EXTERNAL | | | | performed at [facility];[address] | | LAB | | | | [address];[place] | | | | | | [address] | | | | + + + + + + | MCH | 23.5 (L)Comment: Testing | 27.0 - 34.0 pg | EXTERNAL | | | | performed at [facility];[address] | | LAB | | | | [address];[place] | | | | | | [address] | | | | + + + + + + | MCHC | 31.7 (L)Comment: Testing | 32.0 - 35.5 | EXTERNAL | | | | performed at [facility];[address] | g/dL | LAB | | | | [address];[place] | | | | | | [address] | | | | + + + + + + | RDW-CV | 42.9Comment: Testing | 37 - 53 fl | EXTERNAL | | | | performed at [facility];[address] | | LAB | | | | [address];[place] | | | | | | [address] | | | | + + + + + + | Platelet | 294Comment: Testing | 150 - 400 K/uL | EXTERNAL | | | Count | performed at [facility];[address] | | LAB | | | Plasma | [address];[place] | | | | | | [address] | | | | + + + + + + | MPV | 7.8Comment: Testing | fl | EXTERNAL | | | | performed at [facility];[address] | | LAB | | | | [address];[place] | | | | | | [address] | | | | + + + + + + | Differentia | MANUALComment: Testing | | EXTERNAL | | | l Type | performed at [facility];[address] | | LAB | | | | [address];[place] | | | | | | [address] | | | | + + + + + + | Segmented | 72Comment: Testing | % | EXTERNAL | | | Neutrophils | performed at [facility];[address] | | LAB | | | Manual | [address];[place] | | | | | | [address] | | | | + + + + + + | Lymphocytes | 16Comment: Testing | % | EXTERNAL | | | Manual | performed at [facility];[address] | | LAB | | | | [address];[place] | | | | | | [address] | | | | + + + + + + | Monocytes | 10Comment: Testing | % | EXTERNAL | | | Manual | performed at [facility];[address] | | LAB | | | | [address];[place] | | | | | | [address] | | | | + + + + + + | Eosinophils | 2Comment: Testing | % | EXTERNAL | | | Manual | performed at [facility];[address] | | LAB | | | | [address];[place] | | | | | | [address] | | | | + + + + + + | Absolute | 8.67 (H)Comment: Testing | 1.90 - 7.40 | EXTERNAL | | | Neutrophils | performed at [facility];[address] | K/uL | LAB | | | | [address];[place] | | | | | | [address] | | | | + + + + + + | Absolute | 1.93Comment: Testing | 1.00 - 3.90 | EXTERNAL | | | Lymphocytes | performed at [facility];[address] | K/uL | LAB | | | | [address];[place] | | | | | | [address] | | | | + + + + + + | Absolute | 1.21 (H)Comment: Testing | 0.00 - 0.80 | EXTERNAL | | | Monocytes | performed at [facility];[address] | K/uL | LAB | | | | [address];[place] | | | | | | [address] | | | | + + + + + + | Absolute | 0.24Comment: Testing | 0.00 - 0.50 | EXTERNAL | | | Eosinophils | performed at [facility];[address] | K/uL | LAB | | | | [address];[place] | | | | | | [address] | | | | + + + + + + | Platelet | ADEQUATEComment: Testing | | EXTERNAL | | | Estimate | performed at [facility];[address] | | LAB | | | | [facility], [place] | | | | | | [address] | | | | + + + + + + | RBC | 2+Comment: | | EXTERNAL | | | Morphology | ANISO2+MICRO2+HYPONORMAL | | LAB | | | | PLT MORPHTesting | | | | | | performed at [facility];[address] | | | | | | [facility];[place], [place] | | | | | | [address] | | | | | |HYPO | | | | | |NORMAL PLT MORPH | | | | | |Testing performed at [facility];[address] [facility];[place] [address] | | | | | | | [...] EXTERNAL | | | | performed at [facility];[address] | | LAB | | | | [address];[place] | | | | | | [address] | | | | + + + [...] EXTERNAL | | | | performed at [facility];[address] | mmol/L | LAB | | | | [address];[place] | | | | | | [address] | | | | + + + + + + | K | 3.7Comment: Testing | 3.5 - 4.9 | EXTERNAL | | | | performed at [facility];[address] | mmol/L | LAB | | | | [address];[place] | | | | | | [address] | | | | + + + + + + | Cl | 104Comment: Testing | 99 - 109 mmol/L | EXTERNAL | | | | performed at [facility];[address] | | LAB | | | | [address];[place] | | | | | | [address] | | | | + + + + + + | CO2 | 25Comment: Testing | 23 - 32 mmol/L | EXTERNAL | | | | performed at [facility];[address] | | LAB | | | | [address];[place] | | | | | | [address] | | | | + + + + + + | Anion Gap | 14Comment: Testing | 5 - 20 mmol/L | EXTERNAL | | | | performed at [facility];[address] | | LAB | | | | [address];[place] | | | | | | [address] | | | | + + + + + + | Glucose, | 295 (H)Comment: Testing | 65 - 99 mg/dL | EXTERNAL | | | Fasting | performed at [facility];[address] | | LAB | | | | [address];[place] | | | | | | [address] | | | | + + + + + + | BUN | 22Comment: Testing | 8 - 25 mg/dL | EXTERNAL | | | | performed at [facility];[address] | | LAB | | | | [address];[place] | | | | | | [address] | | | | + + + + + + | Creatinine | 1.1Comment: Testing | 0.70 - 1.30 | EXTERNAL | | | | performed at [facility];888 | mg/dL | LAB | | | | [address];[place] | | | | | | [address] | | | | + + + + + + | BUN/Creatin | 20Comment: Testing | | EXTERNAL | | | ine Ratio | performed at [facility];[address] | | LAB | | | | [address];[place] | | | | | | [address] | | | | + + + + + + | Calcium | 8.1 (L)Comment: Testing | 8.5 - 10.5 | EXTERNAL | | | | performed at [facility];888 | mg/dL | LAB | | | | [address];[place] | | | | | | [address] | | | | + + + + + + | Protein, | 7.2Comment: Testing | 6.3 - 8.2 g/dL | EXTERNAL | | | Total | performed at [facility];[address] | | LAB | | | | [address];[place] | | | | | | [address] | | | | + + + + + + | Albumin | 3.0 (L)Comment: Testing | 3.3 - 4.8 g/dL | EXTERNAL | | | | performed at [facility];[address] | | LAB | | | | [address];[place] | | | | | | [address] | | | | + + + + + + | Globulin | 4.1Comment: Testing | 1.3 - 4.9 g/dL | EXTERNAL | | | | performed at [facility];[address] | | LAB | | | | [address];[place] | | | | | | [address] | | | | + + + + + + | A/G Ratio | 0.7 (L)Comment: Testing | 1.0 - 2.4 | EXTERNAL | | | | performed at [facility];[address] | | LAB | | | | [address];[place] | | | | | | [address] | | | | + + + + + + | Bilirubin | 0.2Comment: Testing | 0.1 - 1.5 mg/dL | EXTERNAL | | | Total | performed at [facility];[address] | | LAB | | | | [address];[place] | | | | | | [address] | | | | + + + + + + | ALP, | 140 (H)Comment: Testing | 35 - 115 U/L | EXTERNAL | | | External | performed at [facility];[address] | | LAB | | | | [address];[place] | | | | | | [address] | | | | + + + + + + | AST | 17Comment: Testing | 10 - 45 U/L | EXTERNAL | | | | performed at [facility];[address] | | LAB | | | | [address];[place] | | | | | | [address] | | | | + + + + + + | ALT | 24Comment: Testing | 10 - 65 U/L | EXTERNAL | | | | performed at [facility];[address] | | LAB | | | | [address];[place] | | | | | | [address] | | | | + + + [...] | | | | | | at [facility];[address];[place] [address] | | | | + + + [...] | | | | editor in chief Keyla Gregory | | | | | | (25) on 01/28/2015 | | | | | | 3:37:20 AM | | | | + + + + + + + + | Specimen | + + | | + + + + + | Narrative | Performed At | + + + | Historically converted procedure from [facility] Epic environment | EXTERNAL LAB | + [...]
--- OUTSIDE RECORDS SUMMARY | ~2019-10-12 | XMS | Encounter Summary ---
Demographics + + + | Address | [address] | | | [place] [address] | + + + | Home Phone [...] + | Sammi Kohler | ECON | [place] [address] | | + + + + + Care Team Providers + +------+ + | Care Health Technical Writer Name | Role | Phone | [...] | | diabetes | [address] | [place], DPM | | | | | mellitus | [address] | [address] | | | | | with | [address] | [place] | | | | | diabetic | [place], [place] | [address] | | | | | polyneuropat | [address] | [place], [place] | | | | | hy, with | Phone: | [phone] | | | | | long-term | [phone] | Phone: | | | | | current use | Fax: | [phone] | | | | | of insulin | [phone] | Fax: | | | | | ([facility]) | | [phone] | | | | | Callus of [...] | | | Paroxysmal | Mireya Calixto NP | [address] | | | | | atrial | [address] | [address] | | | | | fibrillation | [address] | [place], [place] | | | | | (HCC) | [address] | [address] | | | | | [place], | [place], [place] | Phone: | | | | | cardiac | [address] | [phone] | | | | | Procedures | Phone: | Fax: | | | | | ECHO | [phone] | [phone] | | | | | Complete | Fax: | | | | | | | [phone] | | + +--------+ + + + [...] + + | 11/07/ | Office | [facility] | Mireya Pack, | Type 2 diabetes | | 2019 | Visit | [facility] [address] | FLUX MIXER [address] | mellitus with | | | | [address] | [address], | diabetic | | | | [place], [place] | [place] [address] | polyneuropathy, with | | | | [address] | [phone] | long-term current | | | | [phone] | | use of insulin ([facility]) | | | | | | (Primary [...] are ready for refill. Contact information: Address: [address] [place] [address], [address] For diabetes: diabetic testing supplies sent to [employer] (rd 20) Start checking blood sugar 4 times daily Blood work any [facility] AFTER 11/13/18 Diabetic foot care recommended every 3 months Recommend eye exam every year and ask eye doctor to send us copy of your exam For prostate: You are already taking flomax for prostate START taking new medication "Finasteride" once daily (sent to [facility] to start and then re fill to rx pharmacy bubble pack) For heart: Echocardiogram ordered, f/u to discuss results documented in this encounter Progress Notes Cayla Umanzor Manager Cardiac - 11/07/2018 2:30 PM PDTImmunization ordered and [...] of GE junction Hypercholesterolemia 07/08/2013 Hyperlipidemia 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 Obesity, Class I, BMI 30-34.9 07/08/2013 WARD (obstructive sleep apnea) 08/11/2012 does not use CPAP because of the noise Other chronic pain Renal failure Stroke (HCC) TIA (transient ischemic attack) Unspecified visual disturbance reading glasses Past Surgical History: Procedure Laterality Date ABDOMEN SURGERY CHOLECYSTECTOMY CHOLECYSTECTOMY, LAPAROSCOPIC 09/12/2012 Procedure: LAPAROSCOPIC - CHOLECYSTECTOMY; Surgeon: Jevon Vargas DO; Location: [facility] MAIN OR; Service: General; Laterality: N/A; COLONOSCOPY COLONOSCOPY 03/04/2013 Procedure: COLONOSCOPY; Surgeon: Howie Gibson MD; Location: [facility] ENDOSCOPY; Service: Gastroen terology; Laterality: N/A; HERNIA REPAIR 07/03/2013 Procedure: LAPAROSCOPIC - HERNIA - INCISIONAL; Surgeon: Jevon Vargas DO; Location: [facility] MAIN OR; Service: General; Laterality: N/A; KNEE SURGERY rt knee, patella LEG SURGERY LLE OTHER SURGICAL HISTORY UNLISTED PROCEDURE ARTHROSCOPY OTHER SURGICAL HISTORY Left 05/05/2014 SKIN LESION EXCISION - Procedure: EXCISION - LESION - FROZEN SECTION; Surgeon: Sy murcia MD; Location: [facility] MAIN OR; Service: Plastics; Laterality: Left; forearm SKIN BIOPSY SKIN CANCER EXCISION Left 10/10/2012 Procedure: EXCISION - SKIN CANCER; Surgeon: Sy Fierro MD; Location: [facility] MAIN OR; Service: Plastics; Laterality: Left; upper arm and upper back w/frozen section UPPER GASTROINTESTINAL ENDOSCOPY UPPER GASTROINTESTINAL ENDOSCOPY 03/03/2013 Procedure: ESOPHAGOGASTRODUODENOSCOPY; Surgeon: Howie Gibson MD; Location: [facility] ENDOSCOPY; Se rvice: Gastroenterology; Laterality: N/A; Social [...] 11.0 (H) 10/14/2018 No components found for: [id number], PTHINT No results found for: [id number] No results found for: TSH, T4 No results found for: IRON, TIBC, FERRITIN . No results found for: FERRITIN Assessment/Plan: Kevyn was seen today for other. Diagnoses and all orders for this visit: Type 2 diabetes mellitus with diabetic polyneuropathy, with long-term current use of insuli n ([facility]) Diabetic managmenet discussed in detail Foot exam [...] mouth Daily. - Pneumococcal conjugate vaccine (PCV13),IM [79848] - Influenza *PF 65 yr or >, [...] 2019 | visit | | [address] | | | | | | [address] [place], | | | | | | [place] [address] | | | | | | [phone] | | | | | | | [...] [facility]) | | + + +--------+ + + [...] [facility]) | | + + +--------+ + + | ECHO Complete | Echocardiog | Routin | Paroxysmal atrial | Expected: | | | michael | e | fibrillation ([facility]) | 11/07/2018, Expires: | | | | [...]
--- OUTSIDE RECORDS SUMMARY | ~2019-10-12 | XMS | Encounter Summary ---
Demographics + + + | Address | [address] | | | [place] [address] | + + + | Home Phone [...] | Sammi Kohler | ECON | [place] [address] | | + + + + + Care Team Providers + +------+ + | Care Downstream Biomanufacturing Technician Name | Role | Phone | + +------+ + | Mik Diego DO | PCP | | + +------+ + Encounter Details +--------+ + + + + | Date | Type | Department | Care Team | Description | +--------+ + + + + | 10/19/ | Skilled | [facility] | Reinaldo Sanchez | Uncontrolled | | 2019 | Nursing | [facility] | MD Xander [address] | hypertension | | | Facility | [facility] [address] | (Primary Dx); Other | | | | [address] | [place] [address] | pulmonary embolism | | | | [place], [place] | [phone] | without acute cor | | | | [address] | | pulmonale, | | | | [phone] | | unspecified | | | | [...] a 62 y.o. male. HPI Resident of [facility] with a qualifying stay at [facility] from 10/11/18-10/16/18. Kevyn Millan neri a62 y.o.malepast medical history of [...] he should.Patient was ruled out from having OK on serial car diac enzymes, blood pressures and blood sugars were better controlled, OT and PT saw the pat ient recommended SNF and the patient was subsequently discharged to [facility]. Discharg ed to SNF for PT/OT, medication management and detention. History:ASSESSMENT AND PLAN: 1. The patient was [...] mellitus type II DVT (deep venous thrombosis) ([facility]) 03/29/2018 Facial droop 07/08/2013 GIB [...] CHOLECYSTECTOMY; Surgeon: Jevon Vargas DO; Location: [facility] MAIN OR; Service: General; Laterality: N/A; COLONOSCOPY COLONOSCOPY 03/04/2013 Procedure: COLONOSCOPY; Surgeon: Howie Gibson MD; Location: [facility] ENDOSCOPY; Service: Gastroen terology; Laterality: N/A; [...] FROZEN SECTION; Surgeon: Sy murcia MD; Location: [facility] MAIN OR; Service: Plastics; Laterality: Left; forearm SKIN BIOPSY SKIN CANCER EXCISION Left 10/10/2012 Procedure: EXCISION - SKIN CANCER; Surgeon: Sy Fierro MD; Location: [facility] MAIN OR; Service: Plastics; Laterality: Left; upper arm and upper back w/frozen section UPPER GASTROINTESTINAL ENDOSCOPY UPPER GASTROINTESTINAL ENDOSCOPY 03/03/2013 Procedure: ESOPHAGOGASTRODUODENOSCOPY; Surgeon: Howie Gibson MD; Location: [facility] ENDOSCOPY; Se rvice: Gastroenterology; Laterality: N/A; [...] Assessment: Chemistry Component Value Date/Time NA 139 10/16/2018357 [...] PLT 218 10/16/2018 No results found for: [id number] No results found for: FOLATE No results [...] found for: CHOLHDL No components found for: [id number], PTHINT No results found for: DIGOXIN No [...] | | | | | | [address], | | | | | | [place] [address] | | | | | | [phone] | | | | | | | [...]
--- OUTSIDE RECORDS SUMMARY | ~2019-10-12 | XMS | Encounter Summary ---
Demographics + + + | Address | [address] | | | [place] [address] | + + + | Home Phone | | + + + | Preferred Language | Unknown | + + + | Marital Status | | + + + | Moravian Affiliation | 1027 | + + + | Race | White | + + + | Ethnic Group | Not or | + + + Author + + + | Author | [facility] | | | and [place] | + + + | Organization | [facility] | | | and [place] | + + + | Address | Unknown | + + + | Phone | Unavailable | + + + Support + + + + + | Name | Relationship | Address | Phone | + + + + + | Sammi Kohler | ECON | [place] [address] | | + + + + + Care Team Providers + +------+ + | Care Pharmacogeneticist Name | Role | Phone | + [...] Medication Refill | | 2019 | | [facility] [address] | Case Repairer | | | | | [address] | | | | | | [facility] [place] | | | | | | [address] | | | | | | [phone] | | | +--------+--------+ + + + [...] Miscellaneous Notes Telephone Encounter - Mel Morton, Case Repairer - 04/18/2019 8:39 AM PDTPharmac y requesting refill. Last appointment was 03/27/2019. Next appointment not scheduled.Electro nically signed by Mel Morton Case Repairer at 04/18/2019 9:01 AM PDTdocumented i n this encounter Plan of Treatment +--------+ + + + + | Date | Type | Specialty | Care Team | Description | +--------+ + + + + | 10/16/ | Anti-coag | Anticoagulation | Brittany Zaragoza | | 2019 | visit | | [address] | | | | | | [address] [place], | | | | | | [place] [address] | | | | | | [phone] | | | | | | | [...]
--- OUTSIDE RECORDS SUMMARY | ~2019-10-12 | XMS | Encounter Summary ---
Demographics + + + | Address | [address] | | | [place] [address] | + + + | Home Phone | | + + + | Preferred Language | Unknown | + + + | Marital Status | | + + + | Scientology Affiliation | [id number] | + + + [...] + | Sammi Kohler | ECON | [place] [address] | | + + + + + Care Team Providers + +------+ + | Care English Drawer Name | Role | Phone | + +------+ + PCP | Unavailable | + +------+ + Encounter Details +--------+ + + + + | Date | Type | Department | Care Team | Description | +--------+ + + + + | 01/29/ | Emergency | [facility] | Norah Don, | Chest pain, | | 2013 - | | [facility] | MD [address] | atypical; | | | | EMERGENCY CENTER | [place], [place] | Uncontrolled | | 01/30/ | | [address] | [address] | hypertension; | | 2012 | | [place], [place] | | Uncontrolled | | | | [address] | | diabetes mellitus | | | | [phone] | | ([facility]) | +--------+ + + + + Social [...] ED Notes Conversion Transaction, Provider Unknown - 01/30/2013 4:27 AM PSTFormatting of this note m ight be different from the original. ED Notes by Suresh Marin RN at 01/30/13426 Author: Suresh Marin RN Service: (none) Author Type: Registered Nurse Filed: 01/30/13426 Date of Service: 01/30/13426 Status: Signed Hash Slinger: Suresh Marin RN (Registered Nurse) Pt to lobby to wait for cab ride home. Suresh Marin RN 01/30/13426 onver ivana Transaction, Provider Unknown - 01/30/2013 4:26 AM PST ED Notes by Suresh Marin RN at 01/30/13425 Author: Suresh Marin RN Service: (none) Author Type: Registered Nurse Filed: 01/30/13425 Date of Service: 01/30/13425 Status: Signed Hash Slinger: Suresh Marin RN (Registered Nurse) Pt awake alert, resting quietly with no complaints voiced Suresh Marin RN 01/30/13425 onver ivana Transaction, Provider Unknown - 01/30/2013 3:04 AM PST ED Notes by Elroy Nowak RN at 01/30/13303 Author: Elroy Nowak RN Service: (none) Author Type: Registered Nurse Filed: 01/30/13303 Date of Service: 01/30/13303 Status: Signed Hash Slinger: Elroy Nowak RN (Registered Nurse) Awake, A/o x3, states his pain has improved. No other c/o at this time. Awaiting re-eval. Elroy Nowak RN 01/30/13303 onver ivana Transaction, Provider Unknown - 01/30/2013 2:05 AM PST ED Notes by Elroy Nowak RN at 01/30/13204 Author: Elroy Nowak RN Service: (none) Author Type: Registered Nurse Filed: 01/30/13204 Date of Service: 01/30/13204 Status: Signed Hash Slinger: Elroy Nowak RN (Registered Nurse) Appears asleep, respirations even and unlabored, no s/s distress evident. Awaiting re-eval . Elroy Nowak RN 01/30/13204 onver ivana Transaction, Provider Unknown - 01/30/2013 2:05 AM PST ED Notes by Elroy Nowak RN at 01/30/13204 Author: Elroy Nowak RN Service: (none) Author Type: Registered Nurse Filed: 01/30/13204 Date of Service: 01/30/13204 Status: Signed Hash Slinger: Elroy Nowak RN (Registered Nurse) Report received and care assumed. Elroy Nowak RN 01/30/13204 axNorha daly MD - 01/29/2013 10:18 PM PST ED Provider Notes by Norah Don MD at 01/29/132217 Author: Norah Don MD Service: (none) Author Type: Physician Filed: 01/30/13399 Date of Service: 01/29/132217 Status: Signed Hash Slinger: Norah Don MD (Physician) [facility] Department of Emergency Medicine History of Present Illness Norah Guzman is a 57 y.o. male presenting with chest pain. Patient information was obtain ed from patient. History/Exam limitations: none. Patient presented to the Emergency Depart [place] [address]. Chief Complaint Patient presents with Chest Pain C/o substernal CP radiating to LUE. Norah Guzman presents for evaluation of chest pain that began tonight at 1999 when he was getting ready for bed. Pain is mid sternal and moves into the left leg. The symptom onset w as abrupt, and has had a constant course. The pain is located in the mid chest, and is rated as 6/10. There is radiation into the lef. This pain is made worse by "thinking about it" an d is relieved by nothing. The patient also complains of the following additional symptoms: fatigue. The patient denies shortness of breath, nausea, sense of impending doom and any ot her pains. Care prior to arrival consisted of rest with some relief. The patient has had t hese symptoms before many times Primary care provider: JERRELL GUTIÉRREZ Past Medical [...] mg by mouth nightly. Yes Historical Provider atenolol (TENORMIN) 100 MG tablet Take 200 mg by mouth nightly. Yes Historical Provider citalopram (CELEXA) 40 MG tablet Take 40 mg by mouth daily. Yes Historical Provider cloNIDine (CATAPRES) 0.1 MG tablet Take 0.1 mg by mouth 4 (four) times daily. 09/14/12 09/14/13 Yes Augustine Agosto MD clopidogrel (PLAVIX) 75 MG tablet Take 75 mg by mouth daily. Yes Historical Provider diltiazem (DILACOR XR) 120 MG 24 hr capsule Take 240 mg by mouth daily. Yes Historical Pr ovider famotidine (PEPCID) 20 MG tablet Take 1 [...] mouth 2 (two) times daily before meals. Ye s Historical Provider hydrocodone-acetaminophen (VICODIN ES) 7.5-750 MG per tablet Take 1 tablet by mouth every 6 (six) hours as needed for Pain. 10/10/12 10/10/13 Yes Sy Fierro MD ibuprofen (ADVIL,MOTRIN) 200 MG tablet Take 200 mg by mouth every 6 (six) hours as needed. Yes Historical Provider ipratropium-albuterol (COMBIVENT) 18-103 MCG/ACT inhaler Inhale 2 puffs into the lungs ever y 6 (six) hours as needed for Wheezing. 08/14/12 08/14/13 Yes Josefa Ramon MD lisinopril (PRINIVIL,ZESTRIL) 20 MG tablet Take 20 mg by mouth 2 (two) times daily. 09/14/12 09/14/13 Yes Augustine Agosto MD METFORMIN HCL PO Take 1,000 mg by mouth 2 (two) times daily. Yes Historical Provider paroxetine (PAXIL) 40 MG tablet Take 40 mg by mouth every morning. Yes Historical Provi carlos pravastatin (PRAVACHOL) 20 MG tablet Take 20 mg by mouth nightly. Yes Historical Provider ranitidine (ZANTAC) 150 MG tablet Take 150 mg by mouth daily. Yes Historical Provider tiotropium (SPIRIVA) 18 MCG inhalation capsule Inhale 18 mcg into the lungs daily. Yes [facility] Allergies Allergen Reactions B12-Ca Rash "B12" [...] [place] [facility], full code Patient is a local resident and lives with family. Patient has good social support Family History Problem Relation Age of Onset Heart disease Father Heart disease Sister Diabetes type II Sister Review of Systems Review of Systems Constitutional: Negative for fever, chills and weight loss. HENT: Negative for hearing loss and ear pain. Eyes: Negative for double vision and photophobia. Respiratory: Negative for cough. Cardiovascular: Positive for chest pain. Gastrointestinal: Negative for nausea, vomiting and abdominal pain. Neurological: Negative for headaches. Ten systems reviewed and otherwise negative Physical Exam BP 196/92 | Pulse 71 | Temp 97.4 F (36.3 C) | Resp 16 | SpO2 96% Vital signs are revie wed and show high BP. Pulse Oximetry Interpretation: Normal on room air General: Alert, appears developmentally delayed Eyes: Normal inspection, pupils equal and [...] motor deficits, moving all extremities equally, equal roller hand, no sensory deficit. Psych: Appropriate affect, no evidence of hallucinations or delusions. Not suicidal or ho micidal at the time of my examination Ext: Normal Medical Decision Making and Emergency Department Course ED Department Course 22:12. Patient care initiated. This patient presents with the chief complaint of chest pain. The list of possible emergen t diagnoses that the patient requires an evaluation for includes hypercoagulable state, anem ia, dehydration, renal failure, electrolyte changes, unstable angina, myocardial ischemia, a rrhythmia, congestive heart failure, pulmonary edema and non cardiac chest pain. I feel mykel t laboratory testing and further diagnostic testing is necessary to ensure that there is no acute emergent cause of the symptoms. I have ordered a 12 lead EKG, CXR, CBC with diff, CMP , INR, CK, CKMB, and troponin. Clinically, I feel that this patient's history is not consis tent with an acute cardiac etiology of the chest pain. If the first set of cardiac markers is negative, I anticipate that this patient will be discharged home with close outpatient fo llow up. Patient will be placed on the ekg monitor tech to ensure no life threatening arrhyt hmia develops and will be given supplemental oxygen via nasal cannula. 04:00. Repeated troponin. Negative. Will discharge home at this time At the conclusion of this Emergency Department visit, I have reviewed my diagnostic impress ion of non cardiac chest pain with the patient. We have specifically discussed the signs an d symptoms that would constitute the need for an immediate return to the Emergency Departmen t including recurrent chest pain, shortness of breath, fevers, cough, leg swelling and synco pal episodes. I have also discussed the importance of continued outpatient follow up with t he PMD/western tack assembly line worker and further testing (if deemed necessary by the patient's doctor) and th e importance of compliance with the discharge instructions provided to the patient. I have answered the questions that the patient has to the best of my ability and feel that there is no emergent medical condition at the conclusion of the visit. We have also specifically re viewed the results of any testing performed today as it relates to their presenting complain t. Patient has remained on the ekg monitor tech for the duration of their Emergency Departme nt stay with no evidence of life threatening arrhythmia. The patient has no evidence of car diac ischemia based on the testing done today with no ST elevation on the EKG, t-wave invers ions, or ST depressions in a pattern that is worrisome for ischemia, negative cardiac marker s, and a normal chest x-ray. The patient's pain course and also history is also not consist ent with acute myocardial ischemia. Therefore, I have advised rapid outpatient follow up wi either the regular provider or western tack assembly line worker audio production engineer for further cardiac evaluation Last nuclear stress test: HISTORY: 55-year-old male with chest pain TECHNIQUE: [...] No evidence of reversible defects over t stress portion of the examination. IMPRESSION: 1. Normal chamber size, wall motion and ejection fraction 2. No convincing evidence of reversibility 3. Hypertension which could be independent risk factor for cardiac events and other disease " Patient Vitals for the past 24 hrs: BP Temp Temp src Pulse Resp SpO2 01/30/13 0304 184/86 mmHg - - 64 14 96 % 01/30/13 0205 180/82 mmHg - - 58 16 97 % 01/30/13 0107 180/82 mmHg - - 58 16 98 % 01/29/13 2333 159/76 mmHg 98.7 F (37.1 C) Oral 62 16 97 % 01/29/13 2215 196/92 mmHg 97.4 F (36.3 C) - 71 16 96 % The vital sings above have been reviewed prior to disposition Medications given in the Emergency Department: Medications sodium chloride 0.9 % flush 10 mL (not administered) LORazepam (ATIVAN) injection 1 mg (1 mg Intravenous Given 01/29/132236) Records Reviewed Old medical records. Nursing notes for this Emergency Department visit were reviewed. Consultations and phone calls: NONE Laboratory Evaluation: Results Procedure Component Value Ref Range Date/Time Troponin I, Lab [[id number]] Collected:01/30/13329 Order Status:Sent Updated:01/30/13342 Specimen Information:Blood Troponin I [[id number]] Collected:01/29/132210 Order Status:Completed Updated:01/30/13338 TROPONIN I <0.020 0.00 - 0.10 ng/mL Cardiac Panel [[id number]] (Abnormal) Collected:01/29/132210 Order Status:Completed Updated:01/29/132242 WBC 8.8 3.8 - 11.0 K/uL RBC 5.08 4.20 - 5.70 M/uL HGB 13.4 13.2 - 17.0 g/dL HCT 40.9 39.0 - 50.0 % MCV 80.5 80.0 - 100.0 fl MCH 26.4 (L) 27.0 - 34.0 pg MCHC 32.8 32.0 - 35.5 g/dL RDW SD 47.3 37 - 53 fl PLT 256 150 - 400 K/uL MPV 7.8 fl DIFF TYPE AUTOMATED NEUTROPHILS 49.3 % LYMPHOCYTES 36.0 % MONOCYTES 11.0 % EOSINOPHILS 3.2 % BASOPHILS 0.5 % NEUTROPHILS ABS 4.3 1.9 - 7.4 K/uL LYMPHOCYTES ABS 3.2 1.0 - 3.9 K/uL MONOCYTES ABS 1.0 (H) 0 - 0.8 K/uL EOSINOPHILS ABS 0.3 0 - 0.5 K/uL BASOPHILS ABS 0.0 0 - 0.1 K/uL SODIUM 140 135 - 143 mmol/L POTASSIUM 3.6 3.5 - 4.9 mmol/L CHLORIDE 101 99 - 109 mmol/L CO2 30 23 - 32 mmol/L ANION GAP AGAP 12 5 - 20 mmol/L GLUCOSE 315 (H) 65 - 99 mg/dL BUN 13 8 - 25 mg/dL CREATININE 1.38 (H) 0.70 - 1.30 mg/dL BUN/CREAT 10 CALCIUM 8.9 8.5 - 10.2 mg/dL TOTAL PROTEIN 7.3 6.3 - 8.2 g/dL Albumin 3.6 3.6 - 5.0 g/dL GLOBULIN 3.7 1.3 - 4.9 g/dL A/G 1.0 1.0 - 2.4 TBIL 0.3 0.1 - 1.5 mg/dL ALK PHOS 106 35 - 115 U/L AST 18 10 - 45 U/L ALT 24 10 - 65 U/L EGFR 56 (L) >60 mL/min/1.73m2 CPK 174 55 - 400 U/L INR 1.0 APTT 24 23 - 32 seconds MMB 2.8 0.5 - 3.6 ng/mL CK-MB Index 1.6 POC cardiac troponin [[id number]] Collected:01/29/132218 Order Status:Completed Updated:01/29/132233 POC CARDIAC TROPONIN 0.00 0.00 - 0.10 ng/mL Radiology and EKG Evaluation Imaging Results XR Chest PA and Lateral (Preliminary result) Result time:01/29/132258 ED Interpretation Documented by Norah Don MD (01/29/132258, [facility] Emergency Department, Emergency Medicine) Normal CXR without infiltrate and no mass EKG Interpretation - January 29, 2013 at 22:18 Rhythm: Sinus Ventricular Rate: 67 [place] Interval: Normal ST Segments: Normal Significant Q-waves: None Blocks: None [place]: Normal Additional Comments: No acute ischemia ED Diagnoses Final diagnoses Chest pain, atypical Uncontrolled hypertension Uncontrolled diabetes mellitus with hyperglycemia Disposition: ED Disposition Discharge Condition at discharge: Stable . Follow-up Information Follow up With Details Comments Contact Info Jerrell Gutiérrez DO Schedule an appointment as soon as possible for a visit [address] [facility] [address] Discharge Medications: New Prescriptions No new medications [...] treatment Additional Documentation Procedures Norah Don MD 01/30/13399 onversion Transact ion, Provider Unknown - 01/29/2013 10:13 PM PSTFormatting of this note might be different fr om the original. ED Notes by Elroy Nowak RN at 01/29/132212 Author: Elroy Nowak RN Service: (none) Author Type: Registered Nurse Filed: 01/29/132212 Date of Service: 01/29/132212 Status: Signed Hash Slinger: Elroy Nowak RN (Registered Nurse) Bed:02
Expected date:
Expected time:
Means of arrival:
Comments:
onver ivana Transaction, Provider Unknown - 01/29/2013 10:01 PM PST ED Notes by Elroy Nowak RN at 01/29/132200 Author: Elroy Nowak RN Service: (none) Author Type: Registered Nurse Filed: 01/29/132248 Date of Service: 01/29/132200 Status: Signed Hash Slinger: Elroy Nowak RN (Registered Nurse) Per EMS pt c/o CP radiating to LUE and LLE. Seen recently for simlar c/o. Elroy Nowak RN 01/29/13 [address] wilson in this encounter Plan of Treatment +--------+ + + + + | Date | Type | Specialty | Care Team | Description | +--------+ + + + + | 10/16/ | Anti-coag | Anticoagulation | Brittany Zaragoza | | | 2019 | visit | | [address] | | | | | | [place], | | | | | | [place] [address] | | | | | | [phone] | | | | | | | | +--------+ + + + + documented as of this encounter Procedures + +--------+ + + + | Procedure Name | Priori | Date/Time | Associated Diagnosis | Comments | | | ty | | | | + +--------+ + + + | XR CHEST 2 VIEWS | Routin | 01/29/2013 | | Results for this | | | e | 10:48 PM | | procedure are in the | | | | PST | | results section. | + +--------+ + + + | ECG 12 LEAD | Routin | 01/29/2013 | | Results for this | | | e | 10:18 PM | | procedure are in the | | | | PST | | results section. | + +--------+ + + + documented in this encounter Results XR Chest 2 Vws (01/29/2013 10:48 PM PST) + + | Specimen | + + | | + + + + + | Impressions | Performed At | + + + | 1. No acute disease with other chronic findings, as above. | | | | | + + + + + + | Narrative | Performed At | + + + | [facility] CHEST 2 VIEW FRONTAL AND LATERAL 01/29/2013 10:48 | | | PM HISTORY: Chest pain. TECHNIQUE: Dual energy frontal and | | | a lateral chest radiograph. COMPARISON: Chest radiographs, most | | | recent December 24, 2012. FINDINGS: Minimal strandy opacity at | | | the left lung base suggests chronic scarring or subsegmental | | | atelectasis. Otherwise the lung kong are clear. No pneumothorax or | | | pleural effusion is found. Mild degenerative change of the thoracic | | | spine and acromioclavicular joints are noted. Mild atherosclerotic | | | calcification is seen in the aortic knob. Old healed right rib | | | fractures are again noted. | | + + + + + | Procedure Note | + + | Richard, Rad Conversion - 09/28/2018 3:24 PM PDT [facility] AMARAL CHEST 2 VIEW FRONTAL | | AND TAERIXO3501/29/2013 10:48 PM HISTORY:Chest pain. TECHNIQUE:Dual energy frontal and a | | lateral chest radiograph. COMPARISON:Chest radiographs, most recent December 24, 2012. | | FINDINGS:Minimal strandy opacity at the left lung base suggests chronic scarring or | | subsegmental atelectasis. Otherwise the lung kong are clear. No pneumothorax or | | pleural effusion is found. Mild degenerative change of the thoracic spine and | | acromioclavicular joints are noted. Mild atherosclerotic calcification is seen in the | | aortic knob. Old healed right rib fractures are again noted. IMPRESSION: 1. No acute | | disease with other chronic findings, as above. | |COMPARISON: | |Chest radiographs, most recent December 24, 2012. | | | |FINDINGS: | |Minimal strandy opacity at the left lung base suggests chronic scarring or subsegmental ate lectasis. Otherwise the lung kong are clear. No pneumothorax or pleural effusion is found. Mild degenerative change of the | |thoracic spine and acromioclavicular | |joints are noted. Mild atherosclerotic calcification is seen in the aortic knob. Old healed right rib fractures are again noted. | | | |IMPRESSION: | |1. No acute disease with other chronic findings, as above. | | | | | + + ECG 12 lead (01/29/2013 10:18 PM PST) + + + + + [...] of | | | | | | 05-JAN-2013 20:25,No | | | | | | significant [...] (500), | | | | | | food expeditor ZAYNAB HUNT | | | | | | (4) on 01/30/2013 | | | | | | 6:56:31 AM | | | | + + + + + + + + | Specimen | + + | | + + + + + | Narrative | Performed At | + + + | Historically converted procedure from [facility] | EXTERNAL LAB | + + [...] chest pain | + + | Uncontrolled hypertension Unspecified essential hypertension | + + | Uncontrolled diabetes mellitus (HCC) Type II or unspecified type diabetes mellitus | | without mention of complication, uncontrolled | + + documented in this encounter
--- OUTSIDE RECORDS SUMMARY | ~2019-10-12 | XMS | Encounter Summary ---
Demographics + + + | Address | [address] | | | [place] [address] | + + + | Home Phone [...] | Sammi Kohler | ECON | [place] [address] | | + + + + + Care Team Providers + +------+ + | Care Parts Salesperson Name | Role | Phone | [...] Sugar Problem | | 2019 | | [facility] [address] | | | | | [address] | | | | | | [place] | | | | | | [address] | | | | | | [phone] | | | +--------+ + + + [...] again stated understanidng. Routed to PCP as FYTroy. elephone Encounter - Lucia Amos RN - 04/12/2019 5:26 PM [id number] was his update d blood sugar reading. [...] call patient back regarding sugar levels at [phone] elephone Encounter - Lucia Amos RN - [...] as this will elevate the reading further. Colette t stated understanding although he was still [...] 2019 | visit | | [address] | | | | | | [place], | | | | | | [place] [address] | | | | | | [phone] | | | | | | | | +--------+ + + + + documented as of this encounter Visit Diagnoses Not on filedocumented in this encounter"
--- OUTSIDE RECORDS SUMMARY | ~2019-10-12 | XMS | Encounter Summary ---
Demographics + + + | Address | [address] | | | [place] [address] | + + + | Home Phone [...] + | Sammi Kohler | ECON | [place] [address] | | + + + + + Care Team Providers + +------+ + | Care Rag Grader Name | Role | Phone | + [...] | | | | EMERGENCY CENTER | [place], [place] | Hypokalemia | | | | [address] | [address] | | | | | [place], [place] | [phone] | | | | | [address] | | | | | | [phone] | | | +--------+ + + + [...] 03/04/1230 Date of Service: 03/04/12409 Status: Signed Paraeducator: Itzel Hussein RN (Registered Nurse) Called [employer] for transport home, Pt notified of long wait for ride home. Pt restin g comfortably, no s/s distress, skin warm and dry, denies any pain at present. Spoke with lucy king, ok for patient to remain in room resting until taxi arrives. Itzel Hussein RN 03/04/12529 Jayce Rivera MD - 03/04/2012 2:01 AM PSTFormatting of this note might be different from the o riginal. ED Provider Notes by Jayce Allred MD at 03/04/12200 Author: Jayce Allred MD Service: (none) Author Type: Physician Filed: 03/04/12 1416 Date of Service: 03/04/12200 Status: Signed Paraeducator: Jayce Allred MD (Physician) [facility] Department of Emergency Medicine 03/04/2012 History of Present Illness Patient Identification Kevyn Guzman is a 56 y.o. male. Patient information was obtained from patient. History/Exam limitations: none. Patient presented to the Emergency Department by: [facility] A411 Chief Complaint Chief Complaint Patient [...] Component Value Ref Range Date/Time Cardiac Panel [[id number]] (Abnormal) Collected:03/04/120 Order Status:Completed Updated:03/04/12 0258 WBC 9.4 3.8 - 11.0 K/uL RBC [...] - 3.6 ng/mL CK-MB Index 1.3 TSH [[id number]] Collected:03/04/12219 Order Status:Completed Updated:03/04/12257 Specimen Information:Blood TSH [...] Normal sinus rhythm Normal ECG Reviewed by Jayce alamo MD ED Diagnoses Final diagnoses Headache Poorly controlled hypertension Hypokalemia Disposition: ED Disposition Discharge Condition at discharge: Stable Follow-up Information Follow up With Details Comments Contact Info Jerrell Diego DO Make an appointment Make appointment for monday [address] [place] [address] Discharge Medications: New Prescriptions No new medications [...] | | | | | | [place] [address] | | | | | | [phone] | | | | | | | [...] CT Head wo Contrast (03/04/2012 2:30 AM [facility]) + + | Specimen | + + [...] + + | Joaquin Ramos Conversion - 09/28/2018 3:24 PM PDT EXAM:HEAD [...]
--- OUTSIDE RECORDS SUMMARY | ~2019-10-12 | XMS | Encounter Summary ---
Demographics + + + | Address | [address] | | | [place] [address] | + + + | Home Phone [...] + | Sammi Kohler | ECON | [place] [address] | | + + + + + Care Team Providers + +------+ + | Care Rn Cvicu Name | Role | Phone | + +------+ + | Mireya Pack NP | PCP | | + +------+ + Encounter Details +--------+ + + + + | Date | Type | Department | Care Team | Description | +--------+ + + + + | 11/05/ | Telephone | [facility] | Ashley Scales, | | | 2018 | | GAS STOVE SERVICER HELPER | RN | | | | | [address] | | | [address] | | | | | | [place], [place] | | | | | | [address] | | | | | | [phone] | | | +--------+ + + + [...] Telephone Encounter - Ashley Scales RN - 11/16/2018 2:36 PM PDTFollow up [facility] encounte r Verified patient name and . Situation TCM encounter for Hospital admission Background Patient was admitted for [facility] from 10/11/18-10/16/18 chest pain on 11/15/18 and was discharged on 11/15/18 to Home or Self Care Assessment General: How have you been doing since we last spoke?: Patient states, "im doing well" Any questions or concerns at this time?: no (insert clinical practice guideline flow sheet if used): Patient taking miralax at morning and bedtime, had a few small bowel movements today, state s slight abdominal pain but not much, denies nausea or vomiting, eating well, denies blood i n stool. States he is checking his blood glucose 4-5 times/day. This morning before breakfa st his blood sugar was 201 and the rest of the day it has been between 90-120. Patient stat es he gets meals and wheels, has a caregiver come 3 days a week to help prepare meals, and p atient walks a lot. Medication Management: Any new changes to your medications?: yes reviewed patient instructions from PCP appt Zairachad nt has been taking 55 units of insulin detemir before bed. We reviewed Erwin notes from katy jennifer and her change of night time insulin to 45 units. patient states understanding. Justino prabhakar write down all of his blood glucose numbers, and I will call him next week to review h is numbers after his change to 45 units. Do you have any questions about your new medications?: no Follow-up Appointment: Has scheduled follow-up appointments?: yes Attended scheduled follow up appointment(s)?: yes Has transportation available to get to and from appointments? yes Recommendation Disposition: Continue care at home, seek help if symptoms worsen. Reviewed pertinent information from ED AVS Call back instructions: Next week to check on blood sugars Medication Management Interventions: Reviewed PCP instructions from 10.2. States understanding Follow-up Appointment Interventions: Reviewed PCP instructions from 10.2. States understanding elephone Encounter - Ashley Scales RN - 11/06/2018 11:10 AM PDT SITUATION Transitional Care Management for follow-[facility] Eligible for TCM Billing LOS [id number]? yes - spoke with patient on 11.06.18. Patient esthela ne was very hard to hear and patient had a stated caregiver over and couldn't talk long Patient questions/concerns needing provider review: BACKGROUND Admission Date: 10/11/18 Discharge Date: 10/16/18 [facility]charge Disposition: [facility] Principle Discharge Diagnosis: [facility] from 10/11/18-10/16/18 chest pain ASSESSMENT General: How are you doing since you returned home?: Patient states, "im doing good, I have an appt tomorrow" Did you receive discharge instructions? yes Do you have any questions about the instructions? no Does patient have advanced directive? Unknown, unable to assess. Patient Reported Review of Symptoms: (documentation by exception) no symptoms States Blood glucose last night 110 and this morning was 96, states has enough food and has no needs. denies chest pain denies shortness of breath and takes medications himself and they are haynes pplied in bubble packs. Diet: Diet restrictions: None, watch his carbs and sugar Difficulties managing your dietary restrictions? no Medication Literacy: Were you able to molded goods spot picker your medications after discharge? No: unable to hear patient very well Reviewed all medications/supplements and any changes? No: unable to hear patient very well Do you manage your own medications? Yes - How do you keep track of when to take your medica tions? bubble packs Patient understands the purpose of the medications: No: unable to hear patient very well Patient understands when to take the medications: Yes What questions do you have questions regarding your medications? unable to hear patient saad y well Medication Management Interventions: unable to hear patient very well, states he takes his medications on his own withtout any issues, will be reviewed tomorrow at PCP appt. Patient was advised to please bring in all medications to the visit: yes Discharge needs: unable to hear patient very well Receives help from: other caregivers RECOMMENDATION Disposition: Continue care at home, seek help if symptoms worsen. Future Appointments Date Time Provider Department Center 11/07/2018 14:30 [facility] [place] Patient takes dial a ride and states it set up for tomorrow, appt confirmed. Any other Specialists, Out-patient Therapy or Diagnostics/Labs: Patient Education: unable to hear patient very well Triage protocol used?: no Call Back Instructions: Will call back as needed; verified that patient has office phone number and hours, encour ed to call for any questions or concerns. Informant verbalized understanding. No learning barriers noted. documented in this encounter Plan of Treatment [...] | | | | | | [place] [address] | | | | | | [phone] | | | | | | | | +--------+ + + + + documented as of this encounter Visit Diagnoses Not on filedocumented in this encounter
--- OUTSIDE RECORDS SUMMARY | ~2019-10-12 | XMS | Encounter Summary ---
Demographics + + + | Address | [address] | | | [place] [address] | + + + | Home Phone [...] + | Sammi Kohler | ECON | [place] [address] | | + + + + + Care Team Providers + +------+ + | Care Tip Out Worker Name | Role | Phone | + +------+ + | Mireya Pack NP | PCP | | + +------+ + Reason for Visit + +--------+ + | Reason | Onset | Comments | | | Date | | + +--------+ + | Appointment | 08/20/ | call to schedule an apointment | | | 2019 | | + +--------+ + Encounter Details +--------+ + + + + | Date | Type | Department | Care Team | Description | +--------+ + + + + | 08/20/ | Telephone | [facility] | Mireya Pack, | Appointment (call to | | 2019 | | [facility] | MOTOR SCOOTER REPAIRER [address] | schedule an | | | | [address] | [address] [place], | apointment) | | | | [place], [place] | [place] [address] | | | | | [address] | [phone] | | | | | [phone] | | | +--------+ + + + [...] Miscellaneous Notes Telephone Encounter - Yojana Krause, Industrial Twisting Machine Operator - 08/21/2019 1:40 PM P DTCall patient and spoke to patient to schedule a 1 month follow-up. I also remained pt. To bring blood sugar, B/P logs, and medication. elephone Encounter - Miriam Krause Industrial Twisting Machine Operator - 08/21/2019 1:40 PM PDT----- Message from [...] | | | | | | [place] [id number] | | | | | | [phone] | | | | | | | | +--------+ + + + + documented as of this encounter Visit Diagnoses Not on filedocumented in this encounter
--- OUTSIDE RECORDS SUMMARY | ~2019-10-12 | XMS | Encounter Summary ---
Demographics + + + | Address | [address] | | | [place] [address] | + + + | Home Phone [...] + | Sammi Kohler | ECON | [place] [address] | | + + + + + Care Team Providers + +------+ + | Care Wet Finisher Name | Role | Phone | [...] + + | 07/15/ | Telephone | [facility] | Mireya Pack, | Home Health | | 2020 | | [facility] [address] | SECTION LEADER SCREEN PRINTING [address] | | | | | [address] | [address] [place], | | | | | [place], [place] | [place] [address] | | | | | [address] | [phone] | | | | | [phone] | | | +--------+ + + + [...] not eat a diabetic diet. Requested that [facility] RN and PT send observations from home visits to this clinic. RN reporte d that she would do another visit with the pt tomorrow. [facility] RN is concerned that APS might need to be involved as pt seem to be less able to care for himself than he thinks. elephone Encounter - Diane Hill RN - 07/17/2019 9:27 AM PDTAttempted to contact. A message was left to [facility]. elephone Encounter - Ema Zimmerman - 07/17/2019 8:44 AM PDTDestiny, is returning call for Home Health and would like a call back. Additional Call Details: Please call her back at [phone] elephone Encounter - Diane Viveros RN - 07/17/2019 8:32 AM PDTAttempted to contact. A message was left to [facility]. elephone Encounter - Saulo Palomares [...] Pryor - 07/16/2019 11:44 AM [facility] Please call her back at [phone] Heidi Moody documented in this enco unter [...] | | | | | | [place] [address] | | | | | | [phone] | | | | | | | [...]
--- OUTSIDE RECORDS SUMMARY | ~2019-10-12 | XMS | Encounter Summary ---
Demographics + + + | Address | [address] | | | [place] [address] | + + + | Home Phone [...] + | Sammi Kohler | ECON | [place] [address] | | + + + + + Care Team Providers + +------+ + | Care Photographer Finish Name | Role | Phone | + +------+ + PCP | Unavailable | + +------+ + Encounter Details +--------+ + + + + | Date | Type | Department | Care Team | Description | +--------+ + + + + | 06/04/ | Emergency | [facility] | Zach Garnica DO | Abdominal pain; | | 2013 | | MEDICAL CENTER | [address] | Non-cardiac chest | | | | EMERGENCY CENTER | [place], [place] | pain | | | | [address] | [address] | | | | | [place], [place] | [phone] | | | | | [address] | | | | | | [phone] | | | +--------+ + + + [...] 06/04/13516 Date of Service: 06/04/13515 Status: Signed Automatic Glove Turner And Former: Vadim Bernal RN (Registered Nurse) Dr Garnica at bedside to update patient on plan of care. Vadim Bernal RN 06/04/13516 onver ivana Transaction, Provider Unknown - 06/04/2013 4:17 AM PDT ED Notes by Diane Fischer RN at 06/04/13416 Author: Diane Fischer RN Service: (none) Author Type: Registered Nurse Filed: 06/04/13416 Date of Service: 06/04/13416 Status: Signed Automatic Glove Turner And Former: Diane Fischer RN (Registered Nurse) Patient is resting comfortably. Diane Fischer RN 06/04/13416 onver ivana Transaction, Provider Unknown - 06/04/2013 3:12 AM PDT ED Notes by Diane Fischer RN at 06/04/13311 Author: Diane Fischer RN Service: (none) Author Type: Registered Nurse Filed: 06/04/13311 Date of Service: 06/04/13311 Status: Signed Automatic Glove Turner And Former: Diane Fischer RN (Registered Nurse) at bedside.- Danika Fischer RN 06/04/13311 Zach Amezquita DO - 06/04/2013 3:10 AM PDTFormatting of this note might be different from the or iginal. ED Provider Notes by Zach Garnica DO at 06/04/13309 Author: Zach Garnica DO Service: (none) Author Type: Physician Filed: 06/05/13 4902 Date of Service: 06/04/13309 Status: Signed Automatic Glove Turner And Former: Zach Garnica DO (Physician) [facility] Department of Emergency Medicine 06/04/2013 History of Present Illness Patient Identification Norah Gr is a 57 y.o. male. Patient information was obtained from patient and EMS personnel. History/Exam limitations: none. Patient presented to the Emergency Department by: [facility] 1723 Chief Complaint Chief Complaint Patient [...] Procedure: ESOPHAGOGASTRODUODENOSCOPY; Surgeon: Howie Gibson MD; Location: [facility]; S ervice: Gastroenterology; Laterality: N/A; Colonoscopy 03/04/2013 Procedure: COLONOSCOPY; Surgeon: Howie Gibson MD; Location: [facility]; Service: Gastroe nterology; Laterality: [...] reviewed (Using the electronic record system of [facility], I car efully reviewed the [...] Component Value Ref Range Date/Time Cardiac Panel [[id number]] (Abnormal) Collected:06/04/13 0412 Order Status:Completed Updated:06/04/13 0518 WBC 9.3 3.8 - 11.0 K/uL RBC [...] - 3.6 ng/mL CK-MB Index 4.1 Lipase [[id number]] Collected:06/04/13411 Order Status:Completed Updated:06/04/13450 Specimen Information:Blood LIPASE 153 73 - 393 U/L POC cardiac troponin [[id number]] Collected:06/04/135 Order Status:Completed Updated:06/04/13429 POC CARDIAC TROPONIN [...] Interpretation Documented by Emili Flores (06/04/13 0526, [facility] Emergency Department, Emergency Medicine) Nl heart size, nl mediastinum, no infiltrates, arthritic changes of the L shoulder. Chest XR interpreted by Zach Garnica, DO EKG at : 3:01 Normal sinus rhythm at 59 Sinus bradycardia. Normal [place] and RICHARD Normal QRS and [place] Small Q waves in inferior leads Normal ST/T without acute ischemic changes EKG dated 05/26/2013 unchanged in comparison to todays EKG. Interpreted by Zach Garnica DO ED Diagnoses Final diagnoses Abdominal pain Non-cardiac chest pain Disposition: ED Disposition Orders Discharge Condition at discharge: Improving condition Follow-up Information Follow up With Details Comments Contact Info [facility] Emergency Department If symptoms worsen [address] [facility] [address] Jerrell Gutiérrez, DO Keep your appointment [address] [facility] [id number] Discharge Medications: New Prescriptions No new medications [...] 06/04/13305 Date of Service: 06/04/13304 Status: Signed Automatic Glove Turner And Former: Diane Fischer RN (Registered Nurse) Telemetry called re: cardiac monitoring. Diane Fischer RN 06/04/13305 onver ivana Transaction, Provider Unknown - 06/04/2013 2:57 AM PDT ED Notes by Diane Fischer RN at 06/04/13256 Author: Diane Fischer RN Service: (none) Author Type: Registered Nurse Filed: 06/04/13256 Date of Service: 06/04/13256 Status: Signed Automatic Glove Turner And Former: Diane Fischer RN (Registered Nurse) Bed:03
Expected date:
Expected time:
Means of arrival:
Comments:
onver ivana Transaction, Provider Unknown - 06/04/2013 2:54 AM PDT ED Notes by Vadim Bernal RN at 06/04/13253 Author: Vadim Bernal RN Service: (none) Author Type: Registered Nurse Filed: 06/04/13254 Date of Service: 06/04/13253 Status: Signed Automatic Glove Turner And Former: Vadim Bernal RN (Registered Nurse) Per EMS: From [facility] Patient complained to staff of gas pain and chest pressure, chronic. Given 1 nitro by staff, with relief of chest pressure. Now complains of headache. Vadim Bernal, EVE 06/04/13 0255 dokole wilson in this encounter Plan of Treatment +--------+ + + + + | Date | Type | Specialty | Care Team | Description | +--------+ + + + + | 10/16/ | Anti-coag | Anticoagulation | Brittany Zaragoza | | | 2019 | visit | | [address] | | | | | | [address], | | | | | | [place] [address] | | | | | | [phone] | | | | | | | [...] 09/21/2018 3:31 PM PDT NORAH GRXR CHEST 1 VIEW06/04/2013 | | 4:17 AM [...] | | | | performed at [facility];[address] | | LAB | | | | [address];[place] | | | | | | [address] | | | | + + + + + -+ | Non- | 4.95Comment: Testing | 4.20 - 5.70 | EXTERNAL | | | Red Blood | performed at [facility];[address] | M/uL | LAB | | | Cells | [address];[place] | | | | | Counted | [address] | | | | + + + + + -+ | Hemoglobin | 13.3Comment: Testing | 13.2 - 17.0 | EXTERNAL | | | | performed at [facility];[address] | g/dL | LAB | | | | [address];[place] | | | | | | [address] | | | | + + + + + -+ | Hematocrit, | 40.6Comment: Testing | 39.0 - 50.0 % | EXTERNAL | | | POC | performed at [facility];[address] | | LAB | | | | [address];[place] | | | | | | [address] | | | | + + + + + -+ | MCV | 82.1Comment: Testing | 80.0 - 100.0 fl | EXTERNAL | | | | performed at [facility];[address] | | LAB | | | | [address];[place] | | | | | | [address] | | | | + + + + + -+ | MCH | 26.9 (L)Comment: Testing | 27.0 - 34.0 pg | EXTERNAL | | | | performed at [facility];[address] | | LAB | | | | [address];[place] | | | | | | [address] | | | | + + + + + -+ | MCHC | 32.7Comment: Testing | 32.0 - 35.5 | EXTERNAL | | | | performed at [facility];[address] | g/dL | LAB | | | | [address];[place] | | | | | | [address] | | | | + + + + + -+ | RDW-CV | 44.6Comment: Testing | 37 - 53 fl | EXTERNAL | | | | performed at [facility];[address] | | LAB | | | | [address];[place] | | | | | | [address] | | | | + + + + + -+ | Platelet | 271Comment: Testing | 150 - 400 K/uL | EXTERNAL | | | Count | performed at [facility];[address] | | LAB | | | Plasma | [address];[place] | | | | | | [address] | | | | + + + + + -+ | MPV | 7.1Comment: Testing | fl | EXTERNAL | | | | performed at [facility];[address] | | LAB | | | | [address];[place] | | | | | | [address] | | | | + + + + + -+ | Differentia | AUTOMATEDComment: | | EXTERNAL | | | l Type | Testing performed at | | LAB | | | | [facility];[address] | | | | | | [address];[place] [address] | | | | + + + + + -+ | % Segmented | 59.0Comment: Testing | % | EXTERNAL | | | | performed at [facility];[address] | | LAB | | | Neutrophils | [address];[place] | | | | | | [address] | | | | + + + + + -+ | % | 28.6Comment: Testing | % | EXTERNAL | | | Lymphocytes | performed at [facility];[address] | | LAB | | | | [address];[place] | | | | | | [address] | | | | + + + + + -+ | % Monocytes | 8.3Comment: Testing | % | EXTERNAL | | | | performed at [facility];[address] | | LAB | | | | [address];[place] | | | | | | [address] | | | | + + + + + -+ | % | 3.5Comment: Testing | % | EXTERNAL | | | Eosinophils | performed at [facility];[address] | | LAB | | | | [address];[place] | | | | | | [address] | | | | + + + + + -+ | % Basophils | 0.6Comment: Testing | % | EXTERNAL | | | | performed at [facility];[address] | | LAB | | | | [address];[place] | | | | | | [address] | | | | + + + + + -+ | Absolute | 5.5Comment: Testing | 1.9 - 7.4 K/uL | EXTERNAL | | | Segmented | performed at [facility];[address] | | LAB | | | Neutrophils | [address];[place] | | | | | | [address] | | | | + + + + + -+ | Absolute | 2.7Comment: Testing | 1.0 - 3.9 K/uL | EXTERNAL | | | Lymphocytes | performed at [facility];[address] | | LAB | | | | [address];[place] | | | | | | [address] | | | | + + + + + -+ | Absolute | 0.8Comment: Testing | 0 - 0.8 K/uL | EXTERNAL | | | Monocytes | performed at [facility];[address] | | LAB | | | | [address];[place] | | | | | | [address] | | | | + + + + + -+ | Absolute | 0.3Comment: Testing | 0 - 0.5 K/uL | EXTERNAL | | | Eosinophils | performed at [facility];[address] | | LAB | | | | [address];[place] | | | | | | [address] | | | | + + + + + -+ | Absolute | 0.1Comment: Testing | 0 - 0.1 K/uL | EXTERNAL | | | Basophils | performed at [facility];[address] | | LAB | | | | [address];[place] | | | | | | [address] | | | | + + + + + -+ | Na | 140Comment: Testing | 135 - 143 | EXTERNAL | | | | performed at [facility];[address] | mmol/L | LAB | | | | [address];[place] | | | | | | [address] | | | | + + + + + -+ | K | 3.8Comment: Testing | 3.5 - 4.9 | EXTERNAL | | | | performed at [facility];[address] | mmol/L | LAB | | | | [address];[place] | | | | | | [address] | | | | + + + + + -+ | Cl | 104Comment: Testing | 99 - 109 mmol/L | EXTERNAL | | | | performed at [facility];[address] | | LAB | | | | [address];[place] | | | | | | [address] | | | | + + + + + -+ | CO2 | 31Comment: Testing | 23 - 32 mmol/L | EXTERNAL | | | | performed at [facility];[address] | | LAB | | | | [address];[place] | | | | | | [address] | | | | + + + + + -+ | Anion Gap | 9Comment: Testing | 5 - 20 mmol/L | EXTERNAL | | | | performed at [facility];[address] | | LAB | | | | [address];[place] | | | | | | [address] | | | | + + + + + -+ | Glucose, | 195 (H)Comment: Testing | 65 - 99 mg/dL | EXTERNAL | | | Fasting | performed at [facility];[address] | | LAB | | | | [address];[place] | | | | | | [address] | | | | + + + + + -+ | BUN | 18Comment: Testing | 8 - 25 mg/dL | EXTERNAL | | | | performed at [facility];[address] | | LAB | | | | [address];[place] | | | | | | [address] | | | | + + + + + -+ | Creatinine | 1.09Comment: Testing | 0.70 - 1.30 | EXTERNAL | | | | performed at [facility];[address] | mg/dL | LAB | | | | [address];[place] | | | | | | [address] | | | | + + + + + -+ | BUN/Creatin | 17Comment: Testing | | EXTERNAL | | | ine Ratio | performed at [facility];[address] | | LAB | | | | [address];[place] | | | | | | [address] | | | | + + + + + -+ | Calcium | 8.6Comment: Testing | 8.5 - 10.2 | EXTERNAL | | | | performed at [facility];[address] | mg/dL | LAB | | | | [address];[place] | | | | | | [address] | | | | + + + + + -+ | Protein, | 7.1Comment: Testing | 6.3 - 8.2 g/dL | EXTERNAL | | | Total | performed at [facility];[address] | | LAB | | | | [address];[place] | | | | | | [address] | | | | + + + + + -+ | Albumin | 3.3 (L)Comment: Testing | 3.6 - 5.0 g/dL | EXTERNAL | | | | performed at [facility];[address] | | LAB | | | | [address];[place] | | | | | | [address] | | | | + + + + + -+ | Globulin | 3.8Comment: Testing | 1.3 - 4.9 g/dL | EXTERNAL | | | | performed at [facility];[address] | | LAB | | | | [address];[place] | | | | | | [address] | | | | + + + + + -+ | A/G Ratio | 0.9 (L)Comment: Testing | 1.0 - 2.4 | EXTERNAL | | | | performed at [facility];[address] | | LAB | | | | [address];[place] | | | | | | [address] | | | | + + + + + -+ | Bilirubin | 0.3Comment: Testing | 0.1 - 1.5 mg/dL | EXTERNAL | | | Total | performed at [facility];[address] | | LAB | | | | [address];[place] | | | | | | [address] | | | | + + + + + -+ | ALP, | 97Comment: Testing | 35 - 115 U/L | EXTERNAL | | | External | performed at [facility];[address] | | LAB | | | | [address];[place] | | | | | | [address] | | | | + + + + + -+ | AST | 22Comment: Testing | 10 - 45 U/L | EXTERNAL | | | | performed at [facility];[address] | | LAB | | | | [address];[place] | | | | | | [address] | | | | + + + + + -+ | ALT | 22Comment: Testing | 10 - 65 U/L | EXTERNAL | | | | performed at [facility];[address] | | LAB | | | | [address];[place] | | | | | | [address] | | | | + + + [...] | | | | | at [facility];[address] | | [address];[place] [address] | | | | + + + + + -+ | CK, Total | 81Comment: Testing | 55 - 400 U/L | EXTERNAL | | | | performed at [facility];[address] | | LAB | | | | [address];[place] | | | | | | [address] | | | | + + + [...] | | | | performed at [facility];[address] | | | | | | [address];[place] | | | | | | [address] | | | | + + + + + -+ | aPTT, | 24Comment: Testing | 23 - 32 seconds | EXTERNAL | | | Patient | performed at [facility];[address] | | LAB | | | | [address];[place] | | | | | | [address] | | | | + + + + + -+ | CK-MB | 3.3Comment: Testing | 0.5 - 3.6 ng/mL | EXTERNAL | | | | performed at [facility];[address] | | LAB | | | | [address];[place], [place] | | | | | | [address] | | | | + + + [...] | | | | performed at [facility];[address] | | LAB | | | | [address] [facility];[place], [place] | | | | | | [address] | | | | + + + [...] (975), | | | | | | non linear editor Anshu Soliz | | | | | | on 06/04/2013 | | | | | | 6:14:34 AM | | | | + + + + + + + + | Specimen | + + | | + + + + + | Narrative | Performed At | + + + | Historically converted procedure from [facility] | EXTERNAL LAB | + + [...]
--- OUTSIDE RECORDS SUMMARY | ~2019-10-12 | XMS | Encounter Summary ---
Demographics + + + | Address | [address] | | | [place] [address] | + + + | Home Phone [...] Sammi Kohler | ECON | [place] [address] | | + + + + + Care Team Providers + +------+ + | Care Motion Picture Equipment Supervisor Name | Role | Phone | + +------+ + | Mireya Pack NP | PCP | | + +------+ + Encounter Details +--------+ + + + + | Date | Type | Department | Care Team | Description | +--------+ + + + + | 06/17/ | Telephone | [facility] | Sanjuanita Rodriguez RN | | | 2019 | | PROGRAM DIR | | | | | | MANAGEMENT [address] | [address] | | | | | | [place], [place] | | | | | | [address] | | | | | | [phone] | | | +--------+ + + + [...] Miscellaneous Notes Telephone Encounter - Joy Connor Legislators - 07/04/2019 11:56 AM PDTHalima Rider as phone number was not working, no BP cuff in stock. Will keep trying. elephone Encounbhupendra r - Joy Connor Legislators - [facility] Unsure of accuracy. Did reading with this digital monitor and had MA do arm cuff read , two very different readings. Will return and keep looking. Patient called in to PCP's office on 06/20/19, BP was 144/66 elephone Encounter - Yu Connor Legislators - 06/20/2019 11:28 AM [facility]TW[facility], state they do get them in, to check again. [facility] to follow up next week. Contacted patient and advised, he states that his physical therapist came today and his BP was 146/77. elephone Encounter - Joy Connor Legislators - 06/18/2019 2:42 PM PDT Contacted patient. Has not been monitoring his blood pressure because he does not have a blood pressure cuff a t home. Patient states he does not have transportation to follow up with [facility]. Edwina mendoza would contact [facility] to see if BP cuff available. elephone Encounter - Sanjuanita Rodriguez RN - 01/2020 7:40 AM PDTChart review completed and [facility] up [...] | | | | | | [place], | | | | | | [place] [address] | | | | | | [phone] | | | | | | | [...]
--- OUTSIDE RECORDS SUMMARY | ~2019-10-12 | XMS | Encounter Summary ---
Demographics + + + | Address | [address] | | | [place] [address] | + + + | Home Phone [...] Sammi Kohler | ECON | [place] [address] | | + + + + + Care Team Providers + +------+ + | Care Top Loader Name | Role | Phone | + +------+ + | Mireya Pack NP | PCP | | + +------+ + Reason for Visit + +--------+ + | Reason | Onset | Comments | | | Date | | + +--------+ + | TCM - Hosp FU | 07/31/ | | | | 2019 | | + +--------+ + Encounter Details +--------+ + + + + | Date | Type | Department | Care Team | Description | +--------+ + + + + | 07/31/ | Telephone | [facility] | Sanjuanita Rodriguez RN | TCM - Hosp FU | | 2019 | | MANAGEMENT LEAD | | | | | | MA[address]EMENT [address] | | | | | | [address] | | | | | | [place] | | | | | | [address] | | | | | | [phone] | | | +--------+ + + + [...] Miscellaneous Notes Telephone Encounter - Joy Connor, Shoeblack - 08/06/2019 9:13 AM PDTPatien t contacted, [...] tomorrow. el ephone Encounter - Joy Connor Shoeblack - 08/05/2019 3:13 PM PDTContacted patient, he states he has not received his warfarin, advised would follow up with pharmacy. Provided number to [facility] for follow up. Contacted [facility], [facility] Operator states warfarin was delivered on 07/31 @ 4295. Will follow up with patient tomorrow morning when caregiver present. elephone Encounter - Joy Mcnamara Shoeblack - 08/05/2019 11:43 AM PDTAttempted to contact patient, no a nswer, left voicemail providing contact information. doc [...] [place] | | | | | | [place] [address] | | | | | | [phone] | | | | | | | | +--------+ + + + + documented as of this encounter Visit Diagnoses Not on filedocumented in this encounter
--- OUTSIDE RECORDS SUMMARY | ~2019-10-12 | XMS | Encounter Summary ---
Demographics + + + | Address | [address] | | | [place] [address] | + + + | Home Phone [...] Sammi Kohler | ECON | [place] [address] | | + + + + + Care Team Providers + +------+ + | Care Gelatin Maker Utility Name | Role | Phone | + +------+ + | Mik Diego DO | PCP | | + +------+ + Encounter Details +--------+ + + + + | Date | Type | Department | Care Team | Description | +--------+ + + + + | 09/21/ | Emergency | [facility] | Mik Kwong, | Chest pain, | | 2019 | | [facility] | [address] | unspecified type; | | | | EM[facility]GENCY CENTER | [place] [address] | Hypertension, | | | | [address] | [phone] | unspecified type | | | | [place], [place] | | | | | | [address] | | | | | | [phone] | | | +--------+ + + + [...] 1238 Date of Service: 09/21/181739 Status: Signed Director Treasurer: Mik Kwong MD (Physician) [facility] Department of Emergency Medicine 5:49 PM History [...] days. Patient had been evaluated in the [facility] ED twice and [facility] ED once during that time. Patient also notes throat dryness and mild abdominal pain. 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 PCP: No primary care provider on [...] Anxiety ARF (acute renal failure) ([facility]) 03/02/2013 Atrial fibrillation (HCC) Basal cell carcinoma 09/26/2012 arm and back COPD (chronic obstructive pulmonary disease) ([facility]) 03/02/2013 hypoxemia on 2 lts nc Depression Development delay Diabetes mellitus type II DVT (deep venous thrombosis) ([facility]) 03/29/2018 Facial droop 07/08/2013 GIB (gastrointestinal [...] - CHOLECYSTECTOMY; Surgeon: Jevon Vargas DO; Location: [facility] MAIN OR; Service: General; Laterality: N/A; COLONOSCOPY COLONOSCOPY N/A 03/04/2013 Procedure: COLONOSCOPY; Surgeon: Howie Gibson MD; Location: [facility] ENDOSCOPY; Service: Gastroen terology; Laterality: N/A; ESOPHAGOGASTRODUODENOSCOPY N/A 03/03/2013 Procedure: ESOPHAGOGASTRODUODENOSCOPY; Surgeon: Howie Gibson MD; Location: [facility] ENDOSCOPY; Se rvice: Gastroenterology; Laterality: N/A; HERNIA REPAIR N/A 07/03/2013 Procedure: LAPAROSCOPIC - HERNIA - INCISIONAL; Surgeon: Jeovn Vargas DO; Location: [facility] MAIN OR; Service: General; Laterality: N/A; KNEE SURGERY rt knee, patella LEG SURGERY LLE SKIN BIOPSY SKIN CANCER EXCISION Left 10/10/2012 Procedure: EXCISION - SKIN CANCER; Surgeon: Sy Fierro MD; Location: [facility] MAIN OR; Service: Plastics; Laterality: Left; upper arm and upper back w/frozen section SKIN LESION EXCISION Left 05/05/2014 Procedure: EXCISION - LESION - FROZEN SECTION; Surgeon: Sy Fierro MD; Location: [facility] MA[facility] OR; Service: Plastics; Laterality: [...] of children: 1 Years of education: s. [employer] Occupational History disabled Social History Main Topics [...] but is not limited t o: acute MN, unstable angina, thoracic aortic dissection, pneumothorax, PE, myocarditis, per icarditis, esophagitis, musculoskeletal disorder, pleurisy, vs other. Will assess blood wor k, EKG, CT chest, and chest xray, give aspirin, and reevaluate the patient. 7:22 PM Chest xray shows no acute findings. 7:53 PM Blood work reviewed. Cardiac panel shows hyperglycemia. Troponin I, drawn at 6:10 P M, is 0.026. Cherg's WNL. 8:09 PM CTA chest shows no acute findings. Records reviewed. Patient had been admitted from 09/13 to 09/17 and had been diagnosed with new-onset atrial fibrillation with RVR. Patient had reportedly ceased taking all of his med ications three months before. Patient was restarted on his medications at that time. Records received from [facility] dated 09/18/18. He was seen there [...] Procedure Component Value Ref Range Date/Time Protime-INR [[id number]] Collected: 09/21/181916 Order Status: Completed Updated: 09/21/181952 INR 0.9 aPTT [[id number]] Collected: 09/21/181916 Order Status: Completed Updated: 09/21/181952 APTT 26 23 - 32 seconds Cardiac Panel [[id number]] (Abnormal) Collected: 09/21/181809 Order Status: Completed Updated: [...] ng/mL CK-MB Index 3.0 Troponin I, Lab [[id number]] Collected: 09/21/181809 Order Status: Completed Specimen: Blood Updated: 09/21/181935 TROPONIN I 0.026 0.00 - 0.04 ng/mL I personally reviewed the lab results and they have been posted to the chart. Pertinent po sitive and negative findings have been addressed appropriately. Radiology and EKG Evaluation Imaging Results CT Chest PE Protocol (Final result) Result time 09/21/18 20:04:35 Final result by Jose Meza MD (09/21/18 20:04:35) Impression: Mildly enlarged [...] doctor Go to Keep your upcoming appointment [facility] Emergency Department Emergency Medicine If symptoms worsen [address] [place] [id number] Discharge Medications: Discharge Medication List as of [...] 09/21/181822 Date of Service: 09/21/181822 Status: Signed Director Treasurer: Elmo Ramesh RPH (Pharmacist) Rx Admission Medication History Note I have reviewed the medication history for appropriate doses obtained by: Pharmacy Medicat ion History Computerized [place] Recorder. After reviewing the home medication list : I agree with the home medication list. 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 Adjusted HOUSEKEEPING ROOM ATTENDANT medications according to the critical systems technician note below. - removed humalog. Patient [...] Home Medications as necessary. Thanks Elmo Ramesh, [facility] 09/21/2018 6:21 PM >> Marlyn Pfeiffer CPhT 09/21/2018 18:10 Rx Medication History Computerized [place] Recorder Note Patients Preferred Pharmacy has been updated in EPIC: [facility] - [place], [place] - [address] [place] [phone] [id number] [facility] [address] [facility] [phone] [facility] [place], [place] - [address] [place] [phone] [facility] - [address], [facility] [place] [address] [place] [address], [facility] [place] 140 [facility] [address] Patients Allergies have been updated and marked as reviewed: yes Nitroglycerin and Vitamin b12 The following changes were made to the allergy list (if any): N/A Medication History provided by: Patient, Patient Medication List, Outside Pharmacy and [employer] Info Follow-up Issues: None - Pending [...] taking Li sinopril. Prescription is filled at [place] [facility] and they said patient has not picked u p new RX: Lisinopril 10 mg daily. Same for Pravastatin 80 mg daily. Has not refill med. Medication history has been completed: *Awaiting Pharmacist Final Review* Marlyn Pfeiffer CPhT 09/21/2018 6:03 PM ONDAdokole wilson in this encounter Plan of [...] | | | | | | [place] [address] | | | | | | [phone] | | | | | | | [...] | | | Patient | performed at [facility];[address] | | LAB | | | | [facility];[place], [place] | | | | | | [address] | | | | + + + + + + + + | Specimen | + + | | + + + +---------+ + + | Performing | Address | City/State/Zipcode | Phone Number | | Organization | | | | + +---------+ + + | EXTERNAL LAB | | | | + +---------+ + + Hayime JUAN (09/21/2018 7:17 PM PDT) + + + [...] [facility] | | | | | | [address];[place], [place] | | | | | | [address] | | | | + + + [...] at | | | | | | [facility];[address] [place] [address] | | | | | | [facility];[place] [address] | | | | + + + [...]
--- OUTSIDE RECORDS SUMMARY | ~2019-10-12 | XMS | Encounter Summary ---
Demographics + + + | Address | [address] | | | [place] [address] | + + + | Home Phone | | + + + | Preferred Language | Unknown | + + + | Marital Status | | + + + | Jainism Affiliation | 1027 | + + + [...] + | Sammi Kohler | ECON | [place] [address] | | + + + + + Care Team Providers + +------+ + | Care Core Drill Operator Helper Name | Role | Phone | + +------+ + | Mireya Pack NP | PCP | | + +------+ + Reason for Visit + +--------+ + | Reason | Onset | Comments | | | Date | | + +--------+ + | Medication Refill | 07/22/ | | | | 2020 | | + +--------+ + Encounter Details +--------+--------+ + + + | Date | Type | Department | Care Team | Description | +--------+--------+ + + + | 07/22/ | Refill | [facility] | Mel Morton, | Medication Refill | | 2019 | | [facility] [address] | Brick Tester | | | | | [address] | | | | | | [facility] [place] | | | | | | [address] | | | | | | [phone] | | | +--------+--------+ + + + [...] Miscellaneous Notes Telephone Encounter - Mel Morton, Brick Tester - 07/23/2019 8:20 AM PDTPharmac y requesting refill. Last appointment was 07/10/2019. Next appointment 07/31/2019.Electronic ally signed by Mel Morton Brick Tester at 07/23/2019 8:21 AM PDTdocumented in t his encounter Plan of Treatment +--------+ + + + + | Date | Type | Specialty | Care Team | Description | +--------+ + + + + | 10/16/ | Anti-coag | Anticoagulation | Brittany Zaragoza | | | 2019 | visit | | [address] | | | | | | [place], | | | | | | [place] [address] | | | | | | [phone] | | | | | | | [...]
--- OUTSIDE RECORDS SUMMARY | ~2019-10-12 | XMS | Encounter Summary ---
Demographics + + + | Address | [address] [facility] [address] | | | [place] [address] | + + + | Home Phone [...] + | Samim Kohler | ECON | [place] [address] | | + + + + + Care Team Providers + +------+ + | Care Shipping Hand Name | Role | Phone | + +------+ + PCP | Unavailable | + +------+ + Encounter Details +--------+ + + + + | Date | Type | Department | Care Team | Description | +--------+ + + + + | 05/08/ | Emergency | [facility] | Yesica Flowers, | TIA (transient | | 2015 - | | [facility] | DO [address] | ischemic attack); | | | | EMERGENCY CENTER | [place] [address] | CKD (chronic kidney | | 05/09/ | | [address] | [phone] | disease); Paroxysmal | | 2014 | | [place], [place] | | atrial fibrillation | | | | [address] | | (HCC) | | | | [phone] | | | +--------+ + + + [...] ED Notes Conversion Transaction, Provider Unknown - 05/08/2014 11:25 PM PDTFormatting of this note m ight be different from the original. ED Notes by Marcial Bernal RN at 05/08/142324 Author: Marcial Bernal RN Service: (none) Author Type: Registered Nurse Filed: 05/08/142325 Date of Service: 05/08/142324 Status: Signed Travel Trailer Components Assembler: Marcial Bernal RN (Registered Nurse) Report given to EVE Bustamante at [facility]. Marcial Bernal RN 05/08/14 0997 hitaYesica lai DO - 05/08/2014 9:28 PM PDTFormatting of this note might be different from the o riginal. ED Provider Notes by Yesica Flowers DO at 05/08/142127 Author: Yesica Flowers DO Service: Emergency Department Author Type: Physician Filed: 05/09/14 1711 Date of Service: 05/08/142127 Status: Signed Travel Trailer Components Assembler: Yesica Flowers DO (Physician) Procedures Additional Documentation Procedures Department of Emergency Medicine HPI History of Present Illness Patient Identification Norah Gr is a 58 y.o. male. Patient information was obtained from patient. History/Exam limitations: none. Patient presented to the Emergency Department by: [facility] 9858 Chief Complaint Chief Complaint Patient presents with Numbness facial numbness Recheck (Comments) The patient complains of numbness. Onset of symptoms was 1.5 hours ago, it has since resolv ed without tx. The symptoms are described to be of mild severity. The patient describes th e quality and location of the symptoms as the following: left face, left neck and left arm. Denies motor weakness, denies inability to walk. Denied dysarthria or aphasia. Was having di fficulty swallowing but that has resolved. Complains of mild kelley. On arrival to ED symptoms were completely resolved. Past Medical History Diagnosis Date Diabetes mellitus [...] CHOLECYSTECTOMY; Surgeon: Jevon Vargas DO; Location: [facility]; Service: General; Laterality: N/A; Abdominal surgery Cholecystectomy Skin cancer excision 10/10/2012 Procedure: EXCISION - SKIN CANCER; Surgeon: Sy Fierro MD; Location: [facility] ; Service: Plastics; Laterality: Left; upper arm and upper back w/frozen section Esophagogastroduodenoscopy 03/03/2013 Procedure: ESOPHAGOGASTRODUODENOSCOPY; Surgeon: Howie Gibson MD; Location: [facility]; S ervice: Gastroenterology; Laterality: N/A; Colonoscopy 03/04/2013 Procedure: COLONOSCOPY; Surgeon: Howie Gibson MD; Location: [facility]; Service: Gastroe nterology; Laterality: N/A; Upper gastrointestinal endoscopy Skin biopsy Hernia repair 07/03/2013 Procedure: LAPAROSCOPIC - HERNIA - INCISIONAL; Surgeon: Jevon Vargas DO; Location: [facility]; Service: General; Laterality: N/A; Skin lesion excision Left 05/05/2014 Procedure: EXCISION - LESION - FROZEN SECTION; Surgeon: Sy Fierro MD; Location: [facility]; Service: Plastics; Laterality: Left; forearm Prior to Admission medications Medication Sig Start Date End Date Taking? Authorizing Provider Albuterol Sulfate (VENTOLIN HFA IN) Inhale 2 puffs into the lungs as needed. 108 mcg/act Historical Provider Izreh-U-Oaypeodtoyuzc (BEANO) TABS Take 150 Units by mouth 3 (three) times daily as needed (As needed for gas). Historical Provider amLODIPine (NORVASC) 10 MG tablet Take 1 tablet by mouth daily. 12/03/13 Augustine ramírez MD antipyrine-benzocaine (AURALGAN) otic solution Place 4 drops into both ears daily. Histo rical Provider ARIPiprazole (ABILIFY) 15 MG tablet Take 10 mg by mouth daily. Historical Provider aspirin 325 MG tablet Take 1 tablet by mouth daily with breakfast. 05/07/14 05/07/15 Lorna Looney MD calcium carbonate (TUMS) 500 MG chewable [...] 100 mg by mouth nightly. Historical Provider zzutnwonw-xhbigbta-fmkrszcri hydroxide-simethicone Take 40 mLs by mouth daily [...] nosebleed Throat: Negative for: mouth sores Cardiovascular/Respiratory: See cc Gastrointestinal: Negative for: abdominal pain, vomiting, diarrhea, black or bloody stools Genitourinary: Negative for: dysuria, hematuria, urinary problems Musculoskeletal: Negative for: myalgias and arthralgias Skin: Negative for: laceration or lesion Neuro and psych: Negative for: fainting, head injury, seizure, trouble walking Endocrine/Heme/Lymph: Negative for: swollen lymph nodes, easy bruising Physical Exam Physical Exam BP 146/69 | Pulse 78 | Resp 18 | SpO2 97% Borderline htn, otherwise normal Pulse Oximetry interpretation: Normal GEN: Alert ENT: The TMS are neg. Bilaterally. There [...] and normal. There is no tenderness to palpation. There is no reboun d, guarding, or rigidity. No bruits. No palpable masses. EXTREM: No c/c/e. No joint swelling BACK: No tenderness to palpation. NEURO: Alert, oriented. CN 2-12 intact. No motor or sensory deficits. No drift, no cerebel lar signs present. SKIN: Warm and dry, no rashes ED Course Medical Decision Making and Emergency Department Course ED Department Course Patient presents with hx of atrial fib, still not anticoagulated, and recurrent s/s TIA EK Sinus rhythm without ectopics. Rate: 78 Normal P wave, RICHARD Normal QRS axis in limb leads, normal QRS Nonspecific ST and T wave changes Since previous tracing no significant change Interpreted by myself at time of service. CT of head neg for CVA, intracranial mass lesion or hemorrhage Review of lab CBC mild anemia, mild monocytosis CMP mild hyperglycemia, albumin slightly low coags normal Cardiac enzymes normal Patient was just discharged from the hospital for the same complaint. Had a neg w/u for TIA . I have reviewed his past EKGs and he does have intermittent atrial fibrillation. Part of discharge summary dictated by Dr. Looney: "He is not on Coumadin for atrial fibrillation. 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 His CHADS2 score is 2. I did discuss possible Coumadin therapy with Dr. Gregory, neurologist, who recommended c ontinuing him on aspirin and then follow up with Dr. Rhodes outpatient neurologist and also w [facility] cardiology. I did discuss starting the patient on Coumadin with the patient compared wit h aspirin and discussed risks versus benefits. The patient is concerned about Coumadin as he states that he falls periodically and recently sustained a laceration with the fall. He pre fers to talk with his regular physician regarding this. We will continue him on aspirin. The patient had a hemoglobin A1c of 6.2. Cholesterol level 131, triglycerides 156, HDL of 31. Jessie bonilla is currently on Lovastatin 40 mg, with Cardizem and lisinopril. We will continue these on discharge " I reviewed this with the patient. As he is having recurrent symptoms I feel that he does ne ed to be started on warfarin. I discussed the risks and benefits with the patient. I have de creased his daily ASA dose to 81 mg, and started him on 5mg warfarin daily. Stressed the imp ortance of INR checks. He is to followup with his PCP on Monday for an INR. I have discussed my clinical impression and treatment plan with the pt. I have reviewed e results of the diagnostic studies with the patient. We have specifically discussed the sig ns and symptoms that would constitute the need for an immediate return to the ED, the import ance of continued outpatient f/u and the importance of compliance with the d/c instructions. I have answered any questions that the pt has to the best of my ability. Based upon the pt s history, physical exam, ED course, and diagnostic studies, I feel that there is no curre nt emergent medical condition that warrants admission, transfer, or further ED treatment at this time. Records Reviewed Old medical records. Previous electrocardiograms. Nursing notes. See progress note for review of record Labs & Radiology Results Laboratory Evaluation Results Procedure Component Value Ref Range Date/Time Cardiac Panel [[id number]] (Abnormal) Collected: 05/08/142149 Order Status: Completed Updated: 05/08/142218 WBC 10.81 3.80 - 11.00 K/uL RBC 4.99 4.20 - 5.70 M/uL HGB 12.4 (L) 13.2 - 17.0 g/dL HCT 38.3 (L) 39.0 - 50.0 % MCV 76.8 (L) 80.0 - 100.0 fl MCH 24.9 (L) 27.0 - 34.0 pg MCHC 32.5 32.0 - 35.5 g/dL RDW SD 42.4 37 - 53 fl PLT 266 150 - 400 K/uL MPV 7.4 fl DIFF TYPE AUTOMATED NEUTROPHILS 61.03 % LYMPHOCYTES 24.87 % MONOCYTES 9.14 % EOSINOPHILS 4.08 % BASOPHILS 0.88 % NEUTROPHILS ABS 6.60 1.90 - 7.40 K/uL LYMPHOCYTES ABS 2.69 1.00 - 3.90 K/uL MONOCYTES ABS 0.99 (H) 0.00 - 0.80 K/uL EOSINOPHILS ABS 0.44 0.00 - 0.50 K/uL BASOPHILS ABS 0.10 0.00 - 0.10 K/uL SODIUM 140 135 - 143 mmol/L POTASSIUM 3.8 3.5 - 4.9 mmol/L CHLORIDE 106 99 - 109 mmol/L CO2 27 23 - 32 mmol/L ANION GAP AGAP 11 5 - 20 mmol/L GLUCOSE 165 (H) 65 - 99 mg/dL BUN 20 8 - 25 mg/dL CREATININE 1.24 0.70 - 1.30 mg/dL BUN/CREAT 16 CALCIUM 8.6 8.5 - 10.5 mg/dL TOTAL PROTEIN 7.5 6.3 - 8.2 g/dL Albumin 3.5 (L) 3.6 - 5.0 g/dL GLOBULIN 4.1 1.3 - 4.9 g/dL A/G 0.8 (L) 1.0 - 2.4 TBIL 0.3 0.1 - 1.5 mg/dL ALK PHOS 98 35 - 115 U/L AST 17 10 - 45 U/L ALT 19 10 - 65 U/L EGFR >60 >60 mL/min/1.73m2 CPK 158 55 - 400 U/L INR 1.0 APTT 25 23 - 32 seconds MMB 2.8 0.5 - 3.6 ng/mL CK-MB Index 1.8 POC cardiac troponin [[id number]] Collected: 05/08/142152 Order Status: Completed Updated: 05/08/142207 POC CARDIAC TROPONIN 0.01 0.00 - 0.10 ng/mL Radiology and EKG Evaluation Imaging Results CT Head Non-Contrast (Final result) Result time: 05/08/14 22:10:00 Final result by Rad Results In Richard (05/08/14 22:10:00) Impression: 1. No acute intracranial hemorrhage is demonstrated. 2. Mild diffuse global parenchymal volume loss. Narrative: NORAH GR [address] HEAD WO CONTRAST 05/08/2014 10:03 PM INDICATION: Left facial, neck and arm numbness that has resolved, TIA COMPARISON: Head CT, 05/06/14, MRI, 05/06/14 TECHNIQUE: CT scan of the head without contrast. 5-mm axial noncontrast images were acquir ed from the foramen magnum through the cranial vertex. FINDINGS: On manager communication imaging, there is normal craniocervical alignment with no prevertebral s oft tissue swelling. There is no tonsillar herniation demonstrated. There is no midline shift. The ventricular s ystem is normal in size. There is no intra-axial mass. No extra-axial fluid collection is de monstrated. The brain maintains normal garnica-white differentiation. No acute intracranial hem orrhage is demonstrated. The parotid glands are normal. Mild diffuse global parenchymal volu me loss is present. The muscles of mastication are symmetric in appearance. The orbits and g lobes are within normal limits. Complete opacification of the left frontal sinus is demonstr ated. The mastoid air cells are well aerated. There is debris along the bilateral external a uditory canal. Diagnosis & Disposition ED Diagnoses Final diagnoses TIA (transient ischemic attack) CKD (chronic kidney disease) Paroxysmal atrial fibrillation Disposition: ED Disposition Orders Discharge Condition at discharge: Stable Follow-up Information Follow up With Details Comments Contact Info Jerrell Diego, DO Discharge Medications: Discharge Medication List as of 05/08/2014 11:22 PM START taking these medications Details aspirin EC 81 MG EC tablet Take 1 tablet by mouth daily with breakfast., Starting 05/08/2014, Until Mon05/08/15, Print warfarin (COUMADIN) 5 MG tablet Take 1 tablet by mouth daily., Starting 05/08/2014, Until Dis continued, Print Yesica Flowers DO 05/09/14 1711 onversion Transacti on, Provider Unknown - 05/08/2014 7:50 PM PDTFormatting of this note might be different fro m the original. ED Notes by Naren Ann RN at 05/08/141949 Author: Naren Ann RN Service: (none) Author Type: Registered Nurse Filed: 05/08/141949 Date of Service: 05/08/141949 Status: Signed Travel Trailer Components Assembler: Naren Ann RN (Registered Nurse) Bed: 11 Expected date: [...] | | [facility], | | | | | | [place] [address] | | | | | | [phone] | | | | | | | | +--------+ + + + + documented as of this encounter Procedures + +--------+ + + + | Procedure Name | Priori | Date/Time | Associated Diagnosis | Comments | | | ty | | | | + +--------+ + + + | CT HEAD WO CONTRAST | Routin | 05/08/2014 | | Results for this | | | e | 10:03 PM | | procedure are in the | | | | PDT | | results section. | + +--------+ + + + | HISTORICAL LAB PANEL | Routin | 05/08/2014 | | Results for this | | RESULT | e | 9:50 PM | | procedure are in the | | | | PDT | | results section. | + +--------+ + + + | ECG 12 LEAD | Routin | 05/08/2014 | | Results for this | | | e | 7:58 PM | | procedure are in the | | | | PDT | | results section. | + +--------+ + + + documented in this encounter Results CT Head wo Contrast (05/08/2014 10:03 PM PDT) + + | Specimen | + + | | + + + + + | Impressions | Performed At | + + + | 1. No acute intracranial hemorrhage is demonstrated. 2. Mild | | | diffuse global parenchymal volume loss. | | + + + + + + | Narrative | Performed At | + + + | NORAH GR [address] HEAD WO CONTRAST | | | 05/08/2014 10:03 PM INDICATION: Left facial, neck and arm numbness | | | that has resolved, TIA COMPARISON: Head CT, 05/06/14, MRI, 05/06/14 | | | TECHNIQUE: CT scan of the head without contrast. 5-mm axial | | | noncontrast images were acquired from the foramen magnum through the | | | cranial vertex. FINDINGS: On manager communication imaging, there is normal | | | craniocervical alignment with no prevertebral soft tissue swelling. | | | There is no tonsillar herniation demonstrated. There is no midline | | | shift. The ventricular system is normal in size. There is no | | | intra-axial mass. No extra-axial fluid collection is demonstrated. The | | | brain maintains normal garnica-white differentiation. No acute | | | intracranial hemorrhage is demonstrated. The parotid glands are | | | normal. Mild diffuse global parenchymal volume loss is present. The | | | muscles of mastication are symmetric in appearance. The orbits and | | | globes are within normal limits. Complete opacification of the left | | | frontal sinus is demonstrated. The mastoid air cells are well aerated. | | | There is debris along the bilateral external auditory canal. | | + + + + + | Procedure Note | + + | Richard, Rad Conversion - 09/20/2018 10:29 PM PDT NORAH GR89 years MaleCT | | HEAD WO CONTRAST05/08/2014 10:03 PM INDICATION: Left facial, neck and arm numbness that | | has resolved, TIA COMPARISON: Head CT, 05/06/14, MRI, 05/06/14 TECHNIQUE: CT scan of the | | head without contrast. 5-mm axial noncontrast images were acquired from the foramen | | magnum through the cranial vertex. FINDINGS: On manager communication imaging, there is normal | | craniocervical alignment with no prevertebral soft tissue swelling. There is no | | tonsillar herniation demonstrated. There is no midline shift. The ventricular system is | | normal in size. There is no intra-axial mass. No extra-axial fluid collection is | | demonstrated. The brain maintains normal garnica-white differentiation. No acute | | intracranial hemorrhage is demonstrated. The parotid glands are normal. Mild diffuse | | global parenchymal volume loss is present. The muscles of mastication are symmetric in | | appearance. The orbits and globes are within normal limits. Complete opacification of | | the left frontal sinus is demonstrated. The mastoid air cells are well aerated. There is | | debris along the bilateral external auditory canal. IMPRESSION: 1. No acute | | intracranial hemorrhage is demonstrated.2. Mild diffuse global parenchymal volume loss. | | | |acute intracranial hemorrhage is demonstrated. The parotid glands are normal. Mild diffuse global parenchymal volume loss is present. The muscles of mastication are symmetric in appea jason. The orbits and globes are within normal limits. Complete | |opacification of the left frontal sinus is demonstrated. The mastoid air cells are well aer ated. There is debris along the bilateral external auditory canal. | | | |IMPRESSION: | |1. No acute intracranial hemorrhage is demonstrated. | |2. Mild diffuse global parenchymal volume loss. | | | | | + + HISTORICAL LAB PANEL RESULT (05/08/2014 9:50 PM PDT) + + + + + -+ | Component | Value | Ref Range | Performed | Pathologist | | | | | At | Signature | + + + + + -+ | WBC | 10.81Comment: Testing | 3.80 - 11.00 | EXTERNAL | | | | performed at [facility];[address] | K/uL | LAB | | | | [address];[place] | | | | | | [address] | | | | + + + + + -+ | Non- | 4.99Comment: Testing | 4.20 - 5.70 | EXTERNAL | | | Red Blood | performed at [facility];888 | M/uL | LAB | | | Cells | [address];[place] | | | | | Counted | [id number] | | | | + + + + + -+ | Hemoglobin | 12.4 (L)Comment: Testing | 13.2 - 17.0 | EXTERNAL | | | | performed at [facility];888 | g/dL | LAB | | | | [address];[place] | | | | | | [address] | | | | + + + + + -+ | Hematocrit, | 38.3 (L)Comment: Testing | 39.0 - 50.0 % | EXTERNAL | | | POC | performed at [facility];[address] | | LAB | | | | [address];[place] | | | | | | [address] | | | | + + + + + -+ | MCV | 76.8 (L)Comment: Testing | 80.0 - 100.0 fl | EXTERNAL | | | | performed at [facility];[address] | | LAB | | | | [address];[place] | | | | | | [address] | | | | + + + + + -+ | MCH | 24.9 (L)Comment: Testing | 27.0 - 34.0 pg | EXTERNAL | | | | performed at [facility];[address] | | LAB | | | | [address];[place] | | | | | | [address] | | | | + + + + + -+ | MCHC | 32.5Comment: Testing | 32.0 - 35.5 | EXTERNAL | | | | performed at [facility];888 | g/dL | LAB | | | | [address];[place] | | | | | | [address] | | | | + + + + + -+ | RDW-CV | 42.4Comment: Testing | 37 - 53 fl | EXTERNAL | | | | performed at [facility];[address] | | LAB | | | | [address];[place] | | | | | | [address] | | | | + + + + + -+ | Platelet | 266Comment: Testing | 150 - 400 K/uL | EXTERNAL | | | Count | performed at [facility];[address] | | LAB | | | Plasma | [address];[place] | | | | | | [address] | | | | + + + + + -+ | MPV | 7.4Comment: Testing | fl | EXTERNAL | | | | performed at [facility];[address] | | LAB | | | | [address];[place] | | | | | | [address] | | | | + + + + + -+ | Differentia | AUTOMATEDComment: | | EXTERNAL | | | l Type | Testing performed at | | LAB | | | | [facility];[address];[place] [address] | | | | + + + + + -+ | % Segmented | 61.03Comment: Testing | % | EXTERNAL | | | | performed at [facility];[address] | | LAB | | | Neutrophils | [address];[place] | | | | | | [address] | | | | + + + + + -+ | % | 24.87Comment: Testing | % | EXTERNAL | | | Lymphocytes | performed at [facility];[address] | | LAB | | | | [address];[place] | | | | | | [address] | | | | + + + + + -+ | % Monocytes | 9.14Comment: Testing | % | EXTERNAL | | | | performed at [facility];[address] | | LAB | | | | [address];[place] | | | | | | [address] | | | | + + + + + -+ | % | 4.08Comment: Testing | % | EXTERNAL | | | Eosinophils | performed at [facility];[address] | | LAB | | | | [address];[place] | | | | | | [address] | | | | + + + + + -+ | % Basophils | 0.88Comment: Testing | % | EXTERNAL | | | | performed at [facility];[address] | | LAB | | | | [address];[place] | | | | | | [address] | | | | + + + + + -+ | Absolute | 6.60Comment: Testing | 1.90 - 7.40 | EXTERNAL | | | Segmented | performed at [facility];888 | K/uL | LAB | | | Neutrophils | [address];[place] | | | | | | [address] | | | | + + + + + -+ | Absolute | 2.69Comment: Testing | 1.00 - 3.90 | EXTERNAL | | | Lymphocytes | performed at [facility];[address] | K/uL | LAB | | | | [address];[place] | | | | | | [address] | | | | + + + + + -+ | Absolute | 0.99 (H)Comment: Testing | 0.00 - 0.80 | EXTERNAL | | | Monocytes | performed at [facility];[address] | K/uL | LAB | | | | [address];[place] | | | | | | [address] | | | | + + + + + -+ | Absolute | 0.44Comment: Testing | 0.00 - 0.50 | EXTERNAL | | | Eosinophils | performed at [facility];[address] | K/uL | LAB | | | | [address];[place] | | | | | | [address] | | | | + + + + + -+ | Absolute | 0.10Comment: Testing | 0.00 - 0.10 | EXTERNAL | | | Basophils | performed at [facility];[address] | K/uL | LAB | | | | [address];[place] | | | | | | [address] | | | | + + + + + -+ | Na | 140Comment: Testing | 135 - 143 | EXTERNAL | | | | performed at [facility];[address] | mmol/L | LAB | | | | [address];[place] | | | | | | [address] | | | | + + + + + -+ | K | 3.8Comment: Testing | 3.5 - 4.9 | EXTERNAL | | | | performed at [facility];[address] | mmol/L | LAB | | | | [address];[place] | | | | | | [address] | | | | + + + + + -+ | Cl | 106Comment: Testing | 99 - 109 mmol/L | EXTERNAL | | | | performed at [facility];[address] | | LAB | | | | [address];[place] | | | | | | [address] | | | | + + + + + -+ | CO2 | 27Comment: Testing | 23 - 32 mmol/L | EXTERNAL | | | | performed at [facility];[address] | | LAB | | | | [address];[place] | | | | | | [address] | | | | + + + + + -+ | Anion Gap | 11Comment: Testing | 5 - 20 mmol/L | EXTERNAL | | | | performed at [facility];[address] | | LAB | | | | [address];[place] | | | | | | [address] | | | | + + + + + -+ | Glucose, | 165 (H)Comment: Testing | 65 - 99 mg/dL | EXTERNAL | | | Fasting | performed at [facility];[address] | | LAB | | | | [address];[place] | | | | | | [address] | | | | + + + + + -+ | BUN | 20Comment: Testing | 8 - 25 mg/dL | EXTERNAL | | | | performed at [facility];[address] | | LAB | | | | [address];[place] | | | | | | [address] | | | | + + + + + -+ | Creatinine | 1.24Comment: Testing | 0.70 - 1.30 | EXTERNAL | | | | performed at [facility];[address] | mg/dL | LAB | | | | [address];[place] | | | | | | [address] | | | | + + + + + -+ | BUN/Creatin | 16Comment: Testing | | EXTERNAL | | | ine Ratio | performed at [facility];[address] | | LAB | | | | [address];[place] | | | | | | [address] | | | | + + + + + -+ | Calcium | 8.6Comment: Testing | 8.5 - 10.5 | EXTERNAL | | | | performed at [facility];888 | mg/dL | LAB | | | | [address];[place] | | | | | | [address] | | | | + + + + + -+ | Protein, | 7.5Comment: Testing | 6.3 - 8.2 g/dL | EXTERNAL | | | Total | performed at [facility];[address] | | LAB | | | | [address];[place] | | | | | | [address] | | | | + + + + + -+ | Albumin | 3.5 (L)Comment: Testing | 3.6 - 5.0 g/dL | EXTERNAL | | | | performed at [facility];[address] | | LAB | | | | [address];[place] | | | | | | [address] | | | | + + + + + -+ | Globulin | 4.1Comment: Testing | 1.3 - 4.9 g/dL | EXTERNAL | | | | performed at [facility];[address] | | LAB | | | | [address];[place] | | | | | | [address] | | | | + + + + + -+ | A/G Ratio | 0.8 (L)Comment: Testing | 1.0 - 2.4 | EXTERNAL | | | | performed at [facility];[address] | | LAB | | | | [address];[place] | | | | | | [address] | | | | + + + + + -+ | Bilirubin | 0.3Comment: Testing | 0.1 - 1.5 mg/dL | EXTERNAL | | | Total | performed at [facility];[address] | | LAB | | | | [address];[place] | | | | | | [address] | | | | + + + + + -+ | ALP, | 98Comment: Testing | 35 - 115 U/L | EXTERNAL | | | External | performed at [facility];[address] | | LAB | | | | [address];[place] | | | | | | [address] | | | | + + + + + -+ | AST | 17Comment: Testing | 10 - 45 U/L | EXTERNAL | | | | performed at [facility];[address] | | LAB | | | | [address];[place] | | | | | | [address] | | | | + + + + + -+ | ALT | 19Comment: Testing | 10 - 65 U/L | EXTERNAL | | | | performed at [facility];[address] | | LAB | | | | [address];[place] | | | | | | [address] | | | | + + + [...] | | | | | | at [facility];[address] | | | | | | [address];[place] [address] | | | | + + + + + -+ | CK, Total | 158Comment: Testing | 55 - 400 U/L | EXTERNAL | | | | performed at [facility];[address] | | LAB | | | | [...] | | | | | performed at [facility];[address] | | | | | | [address];[place] | | | | | | [address] | | | | + + + + + -+ | aPTT, | 25Comment: Testing | 23 - 32 seconds | EXTERNAL | | | Patient | performed at [facility];[address] | | LAB | | | | [address];[place] | | | | | | [address] | | | | + + + + + -+ | CK-MB | 2.8Comment: Testing | 0.5 - 3.6 ng/mL | EXTERNAL | | | | performed at [facility];[address] | | LAB | | | | [address];[place] | | | | | | [address] | | | | + + + [...] + +---------+ + + ECG 12 lead (05/08/2014 7:58 PM PDT) + + + + + [...] | | | | | ECG of 06-MAY-2014 | | | | | | 05:26,Nonspecific T wave | | | | | [...] | | | | video effects editor Keyla Gregory | | | | | | (25) on 05/09/2014 | | | | | | 12:18:45 AM | | | | + + [...] Unspecified transient cerebral ischemia | + + | CKD (chronic kidney disease) Chronic kidney disease, unspecified | + + | Paroxysmal atrial fibrillation (HCC) Atrial fibrillation | + + documented in this encounter
--- OUTSIDE RECORDS SUMMARY | ~2019-10-12 | XMS | Encounter Summary ---
Demographics + + + | Address | [address] | | | [place] [address] | + + + | Home Phone [...] Sammi Kohler | ECON | [place] [address] | | + + + + + Care Team Providers + +------+ + | Care Sap Bi Architect Name | Role | Phone | + +------+ + | Mik Diego DO | PCP | | + +------+ + Encounter Details +--------+ + + + + | Date | Type | Department | Care Team | Description | +--------+ + + + + | 05/26/ | Orders Only | [facility] | Conversion | | | 2014 | | CENTER | Transaction, | | | | | ANTICOAGULATION | Provider Unknown | | | | | [facility] | | | | | | [address] | (Fax) | | | | | [place], [place] | | | | | | [address] | | | | | | [phone] | | | +--------+ + + + [...] original. Progress Notes by CITLALY Romo at 05/26/149 Author: CITLALY Romo Service: (none) Author Type: Advanced Registered Nurse Zaina ctitioner Filed: 05/26/14 1438 Encounter Date: 05/26/2014 Status: Signed Pipe Connector: CITLALY Romo (Advanced Registered Nurse Practitioner) S- [...] | | | | | | [facility] | | | | | | [place] [address] | | | | | | [phone] | | | | | | | [...]
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
--- OUTSIDE RECORDS SUMMARY | ~2019-10-12 | XMS | Encounter Summary ---
Demographics + + + | Address | [address] | | | [place] [address] | + + + | Home Phone [...] + | Sammi Kohler | ECON | [place] [address] | | + + + + + Care Team Providers + +------+ + | Care Lamp Replacer Name | Role | Phone | + +------+ + PCP | Unavailable | + +------+ + Encounter Details +--------+ + + + + | Date | Type | Department | Care Team | Description | +--------+ + + + + | 12/20/ | Emergency | [facility] | Katelin, Florette G, | Facial laceration, | | 2015 | | [facility]ICAL [facility] | MD [address] | initial encounter; | | | | EMERGENCY CENTER | [place] [address] | Fall, initial | | | | [address] | [phone] | encounter | | | | [place], [place] | | | | | | [address] | | | | | | [phone] | | | +--------+ + + + [...] 12/20/141323 Date of Service: 12/20/141323 Status: Signed Band Manager: Samantha Olivo RN (Registered Nurse) at bedside Samantha Olivo RN 11/14/15 1324 ime, Jailene Snyder MD - 12/20/2014 1:23 PM PST ED Provider Notes by Jailene Thomason MD at 12/20/14 1323 Author: Jailene Thomason MD Service: Emergency Department Author Type: Physician Filed: 12/20/14 1839 Date of Service: 12/20/14 1323 Status: Signed Band Manager: Jailene Thomason MD (Physician) Procedure Orders: 1. Laceration repair [[id number]] ordered by Jailene Thomason MD at 12/20/14 1652 [facility] Department of Emergency Medicine 1:24 PM 12/20/2014 HPI History of Present Illness Patient Identification Norah Gr is a 59 y.o. male. Patient information was obtained from patient. History/Exam limitations: none. Patient presented to the Emergency Department by: [facility] 1723 Chief Complaint Chief Complaint [...] Renal failure ARF (acute renal failure) ([facility]) 03/02/2013 COPD (chronic obstructive pulmonary disease) ([facility]) 03/02/2013 hypoxemia on 2 lts nc [...] pain Stroke (HCC) TIA (transient ischemic attack) custodial (current) use of 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 Past Surgical History [...] [facility]; Service: General; Laterality: N/A; Skin lesion excision Left 05/05/2014 Procedure: EXCISION - LESION - FROZEN SECTION; Surgeon: Sy Fierro MD; Location: [facility]; Service: Plastics; Laterality: Left; forearm Prior to Admission medications Medication Sig Start Date End Date Taking? Authorizing Provider Albuterol Sulfate (VENTOLIN HFA IN) Inhale 2 puffs into the lungs as needed. 108 mcg/act Yes Historical Provider Whzvp-H-Frebqcxakmszo (BEANO) TABS Take 150 Units by mouth [...] 4 weeks in a row. 10/14/14 Yes TERYR Agosto fluticasone (FLONASE) 50 MCG/ACT nasal 1 [...] by mouth nightly. Yes Historical Provide r htsqliybx-cltiuwjq-esvhpsphy hydroxide-simethicone Take 40 mLs by mouth daily [...] by [facility] 12/19/14 Yes CILTALY Leonard Allergies Allergen Reactions Vitamin B12 Rash [...] Lives alone x 1 wk, moved from [employer], , 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 2 falls in [...] Action Action by 12/20/2014 1356 lidocaine-EPINEPHrine 1 %-1:864355 injection 1 mL Infiltration Given by Other [...] needed [address] [place] [address] [facility] [address] [facility] Emergency Department If symptoms worsen [address] [place] [address] Discharge Medications: Discharge Medication List as of [...] its contents. MD Jailene Garcia MD 12/20/14 1833 onversion Transact ion, Provider Unknown - 12/20/2014 1:15 PM PSTFormatting of this note might be different fr om the original. ED Notes by Yojana Richardson RN at 12/20/141314 Author: Yojana Richardson RN Service: (none) Author Type: Registered Nurse Filed: 12/20/141314 Date of Service: 12/20/141314 Status: Signed Band Manager: Yojana Richardson RN (Registered Nurse) Bed: 1105 [...] | | | | | [address] [place], | | | | | | [place] [address] | | | | | | [phone] | | | | | | | [...] | Procedure Note | + -----+ | Joaquin Ramos Conversion - 09/20/2018 10:29 [...]
--- OUTSIDE RECORDS SUMMARY | ~2019-10-12 | XMS | Encounter Summary ---
Demographics + + + | Address | [address] | | | [place] [address] | + + + | Home Phone [...] + | Sammi Kohler | ECON | [place] [address] | | + + + + + Care Team Providers + +------+ + | Care Cellulose Insulation Helper Name | Role | Phone | + +------+ + PCP | Unavailable | + +------+ + Encounter Details +--------+ + + + + | Date | Type | Department | Care Team | Description | +--------+ + + + + | 02/21/ | Emergency | [facility] | Jose Flor, | Hyperglycemia | | 2016 | | [facility] [place] | MD [address] | | | | | EMERGENCY CENTER | [place] [address] | | | | | [address] [facility] | [phone] | | | | | [place], [place] | | | | | | [address] | | | | | | [phone] | | | +--------+ + + + [...] Notes by Jose Flor MD at 02/21/15 951 Author: Jose Flor MD Service: (none) Author Type: Physician Filed: 02/21/15 1127 Date of Service: 02/21/151534 Status: Signed Outside Plant Cable Engineer: Jose Flor MD (Physician) [facility] Department of Emergency Medicine ED Pre-arrival Provider [...] Patient presents with Hyperglycemia- 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, 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 for past [...] pain Stroke (HCC) TIA (transient ischemic attack) 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 Past Surgical History Procedure Laterality Date Unlisted procedure arthroscopy Knee surgery rt knee, patella Leg surgery LLE Colonoscopy Cholecystectomy, laparoscopic 09/12/2012 Procedure: LAPAROSCOPIC - CHOLECYSTECTOMY; Surgeon: Jevon Vargas DO; Location: [facility] MAIN OR; Service: General; Laterality: N/A; Abdominal surgery Cholecystectomy Skin cancer excision 10/10/2012 Procedure: EXCISION - SKIN CANCER; Surgeon: Sy Fierro MD; Location: [facility] MAIN OR ; Service: Plastics; Laterality: Left; upper arm and upper back w/frozen section Esophagogastroduodenoscopy 03/03/2013 Procedure: ESOPHAGOGASTRODUODENOSCOPY; Surgeon: Howie Gibson MD; Location: [facility] ENDOSCOPY; S ervice: Gastroenterology; Laterality: N/A; Colonoscopy 03/04/2013 Procedure: COLONOSCOPY; Surgeon: Howie Gibson MD; Location: [facility] ENDOSCOPY; Service: Gastroe nterology; Laterality: N/A; Upper gastrointestinal endoscopy Skin biopsy Hernia repair 07/03/2013 Procedure: LAPAROSCOPIC - HERNIA - INCISIONAL; Surgeon: Jevon Vargas DO; Location: [facility] MAIN OR; Service: General; Laterality: N/A; Skin lesion excision Left 05/05/2014 Procedure: EXCISION - LESION - FROZEN SECTION; Surgeon: Sy Fierro MD; Location: [facility] MAIN OR; Service: Plastics; Laterality: Left; forearm Prior to Admission medications Medication Sig Start Date End Date Taking? Authorizing Provider Albuterol Sulfate (VENTOLIN HFA IN) Inhale 2 puffs into the lungs as needed. 108 mcg/act Historical Provider Gbudw-L-Yddqqjesyhlpy (BEANO) TABS Take 150 Units by mouth [...] 100 mg by mouth nightly. Historical Provider xsbdockxb-aglgxkzs-johsmkttu hydroxide-simethicone Take 40 mLs by mouth daily [...] Lives alone x 1 wk, moved from [facility], , 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 2 falls in [...] Component Value Units Date/Time CBC with differential [[id number]] (Abnormal) Collected: 02/21/151556 Specimen Information: Blood Updated: [...] 0.06 K/uL MORPHOLOGY 1+ Comprehensive metabolic panel [[id number]] (Abnormal) Collected: 02/21/151556 Specimen Information: Blood Updated: 02/21/157 SODIUM 136 mmol/L POTASSIUM 4.0 mmol/L CHLORIDE [...] U/L EGFR 55 (L) mL/min/1.73m2 Ketones, Serum [[id number]] Collected: 02/21/15 1557 Specimen Information: Blood Updated: 02/21/15 1620 KETONES,SERUM NEGATIVE POCT glucose [[id number]] (Abnormal) Collected: 02/21/15 1559 GLUCOSE,POC SCREEN [address] [...] [address] [place] [id number] Discharge Medications: Discharge Medication List as of [...] | | | | | | [place] [address] | | | | | | [phone] | | | | | | | [...] | LAB | | | [address];[place], [place] | | | | | | [address] | | | | + + + [...] | | Blood | performed at [facility];[address] | | LAB | | | | [address];[place] | | | | | | [address] | | | | + + + [...] + +---------+ + + External Lab: EVE (02/21/2015 3:57 PM PST) + + + + + + | Component | Value | Ref Range | Performed | Pathologist | | | | | At | Signature | + + + + + + | WBC | 12.66 (H)Comment: | 3.80 - 11.00 | EXTERNAL | | | | Testing performed at | K/uL | LAB | | | | KM;[address] | [address];[place] [address] | | | | + + + + + + | Non- | 5.16Comment: Testing | 4.20 - 5.70 | EXTERNAL | | | Red Blood | performed at [facility];888 | M/uL | LAB | | | Cells | [address];[place] | | | | | Counted | [address] | | | | + + + + + + | Hemoglobin | 12.1 (L)Comment: Testing | 13.2 - 17.0 | EXTERNAL | | | | performed at [facility];888 | g/dL | LAB | | | | [address];[place] | | | | | | [address] | | | | + + + + + + | Hematocrit, | 38.4 (L)Comment: Testing | 39.0 - 50.0 % | EXTERNAL | | | POC | performed at [facility];[address] | | LAB | | | | [address];[place] | | | | | | [address] | | | | + + + + + + | MCV | 74.4 (L)Comment: Testing | 80.0 - 100.0 fl | EXTERNAL | | | | performed at [facility];[address] | | LAB | | | | [address];[place] | | | | | | [address] | | | | + + + + + + | MCH | 23.4 (L)Comment: Testing | 27.0 - 34.0 pg | EXTERNAL | | | | performed at [facility];[address] | | LAB | | | | [address];[place] | | | | | | [address] | | | | + + + + + + | MCHC | 31.5 (L)Comment: Testing | 32.0 - 35.5 | EXTERNAL | | | | performed at [facility];888 | g/dL | LAB | | | | [address];[place] | | | | | | [address] | | | | + + + + + + | RDW-CV | 42.9Comment: Testing | 37 - 53 fl | EXTERNAL | | | | performed at [facility];[address] | | LAB | | | | [address];[place] | | | | | | [address] | | | | + + + + + + | Platelet | 306Comment: Testing | 150 - 400 K/uL | EXTERNAL | | | Count | performed at [facility];888 | | LAB | | | Plasma | [address];[place] | | | | | | [address] | | | | + + + + + + | MPV | 7.8Comment: Testing | fl | EXTERNAL | | | | performed at [facility];[address] | | LAB | | | | [address];[place] | | | | | | [address] | | | | + + + + + + | Differentia | AUTOMATEDComment: | | EXTERNAL | | | l Type | Testing performed at | | LAB | | | | [facility];[address] | | | | | | [address];[place] [address] | | | | + + + + + + | % Segmented | 72.94Comment: Testing | % | EXTERNAL | | | | performed at [facility];[address] | | LAB | | | Neutrophils | [address];[place] | | | | | | [address] | | | | + + + + + + | % | 17.70Comment: Testing | % | EXTERNAL | | | Lymphocytes | performed at [facility];[address] | | LAB | | | | [address];[place] | | | | | | [address] | | | | + + + + + + | % Monocytes | 7.80Comment: Testing | % | EXTERNAL | | | | performed at [facility];[address] | | LAB | | | | [address];[place] | | | | | | [address] | | | | + + + + + + | % | 1.11Comment: Testing | % | EXTERNAL | | | Eosinophils | performed at [facility];[address] | | LAB | | | | [address];[place] | | | | | | [address] | | | | + + + + + + | % Basophils | 0.45Comment: Testing | % | EXTERNAL | | | | performed at [facility];[address] | | LAB | | | | [address];[place] | | | | | | [address] | | | | + + + + + + | Absolute | 9.24 (H)Comment: Testing | 1.90 - 7.40 | EXTERNAL | | | Segmented | performed at [facility];888 | K/uL | LAB | | | Neutrophils | [address];[place] | | | | | | [address] | | | | + + + + + + | Absolute | 2.24Comment: Testing | 1.00 - 3.90 | EXTERNAL | | | Lymphocytes | performed at [facility];888 | K/uL | LAB | | | | [address];[place] | | | | | | [address] | | | | + + + + + + | Absolute | 0.99 (H)Comment: Testing | 0.00 - 0.80 | EXTERNAL | | | Monocytes | performed at [facility];[address] | K/uL | LAB | | | | [address];[place] | | | | | | [address] | | | | + + + + + + | Absolute | 0.14Comment: Testing | 0.00 - 0.50 | EXTERNAL | | | Eosinophils | performed at [facility];888 | K/uL | LAB | | | | [address];[place] | | | | | | [address] | | | | + + + + + + | Absolute | 0.06Comment: Testing | 0.00 - 0.10 | EXTERNAL | | | Basophils | performed at [facility];888 | K/uL | LAB | | | | [address];[place] | | | | | | [address] | | | | + + + + + + | RBC | 1+Comment: | | EXTERNAL | | | Morphology | ANISO1+HYPONORMAL PLT | | LAB | | | | MORPH1+MICROTesting | | | | | | performed at [facility];[address] | | | | | | [facility];[place] | | | | | | [address] | | | | | |1+ | | | | | |MICRO | | | | | |Testing performed at [facility];[address] [facility];[place] [address] | | | | | | | [...] [place] | | | | | | [address] | | | | + + + + + + | K | 4.0Comment: Testing | 3.5 - 4.9 | EXTERNAL | | | | performed at [facility];888 | mmol/L | LAB | | | | [address];[place] | | | | | | [address] | | | | + + + + + + | Cl | 102Comment: Testing | 99 - 109 mmol/L | EXTERNAL | | | | performed at [facility];[address] | | LAB | | | | [address];[place] | | | | | | [address] | | | | + + + + + + | CO2 | 26Comment: Testing | 23 - 32 mmol/L | EXTERNAL | | | | performed at [facility];[address] | | LAB | | | | [address];[place] | | | | | | [address] | | | | + + + + + + | Anion Gap | 12Comment: Testing | 5 - 20 mmol/L | EXTERNAL | | | | performed at [facility];[address] | | LAB | | | | [address];[place] | | | | | | [address] | | | | + + + + + + | Glucose, | 305 (H)Comment: Testing | 65 - 99 mg/dL | EXTERNAL | | | Fasting | performed at [facility];[address] | | LAB | | | | [address];[place] | | | | | | [address] | | | | + + + + + + | BUN | 20Comment: Testing | 8 - 25 mg/dL | EXTERNAL | | | | performed at [facility];[address] | | LAB | | | | [address];[place] | | | | | | [address] | | | | + + + + + + | Creatinine | 1.4 (H)Comment: Testing | 0.70 - 1.30 | EXTERNAL | | | | performed at [facility];888 | mg/dL | LAB | | | | [address];[place] | | | | | | [address] | | | | + + + + + + | BUN/Creatin | 14Comment: Testing | | EXTERNAL | | | ine Ratio | performed at [facility];[address] | | LAB | | | | [address];[place] | | | | | | [address] | | | | + + + + + + | Calcium | 8.3 (L)Comment: Testing | 8.5 - 10.5 | EXTERNAL | | | | performed at [facility];888 | mg/dL | LAB | | | | [address];[place] | | | | | | [address] | | | | + + + + + + | Protein, | 7.3Comment: Testing | 6.3 - 8.2 g/dL | EXTERNAL | | | Total | performed at [facility];[address] | | LAB | | | | [address];[place] | | | | | | [address] | | | | + + + + + + | Albumin | 3.1 (L)Comment: Testing | 3.3 - 4.8 g/dL | EXTERNAL | | | | performed at [facility];[address] | | LAB | | | | [address];[place] | | | | | | [address] | | | | + + + + + + | Globulin | 4.2Comment: Testing | 1.3 - 4.9 g/dL | EXTERNAL | | | | performed at [facility];[address] | | LAB | | | | [address];[place] | | | | | | [address] | | | | + + + + + + | A/G Ratio | 0.7 (L)Comment: Testing | 1.0 - 2.4 | EXTERNAL | | | | performed at [facility];[address] | | LAB | | | | [address];[place] | | | | | | [address] | | | | + + + + + + | Bilirubin | 0.3Comment: Testing | 0.1 - 1.5 mg/dL | EXTERNAL | | | Total | performed at [facility];[address] | | LAB | | | | [address];[place] | | | | | | [address] | | | | + + + + + + | ALP, | 141 (H)Comment: Testing | 35 - 115 U/L | EXTERNAL | | | External | performed at [facility];[address] | | LAB | | | | [address];[place] | | | | | | [address] | | | | + + + + + + | AST | 23Comment: Testing | 10 - 45 U/L | EXTERNAL | | | | performed at [facility];[address] | | LAB | | | | [address];[place] | | | | | | [address] | | | | + + + + + + | ALT | 22Comment: Testing | 10 - 65 U/L | EXTERNAL | | | | performed at [facility];[address] | | LAB | | | | [address];[place] | | | | | | [address] | | | | + + + [...] | at [facility];[address] [place] [address] | | | | | | [facility];[place] [address] | | | | + + + [...]
--- OUTSIDE RECORDS SUMMARY | ~2019-10-12 | XMS | Encounter Summary ---
Demographics + + + | Address | [address] | | | [place] [address] | + + + | Home Phone [...] Sammi Kohler | ECON | [place] [address] | | + + + + + Care Team Providers + +------+ + | Care Refinish Technician Name | Role | Phone | [...] + + | 12/27/ | Telephone | [facility] | Sanjuanita Rodriguez RN | TCM - Hosp FU | | 2019 | | ORACLE FUSION DEVELOPER | | | | | | MANAGEMENT [address] | | | | | [address] | | | | | | [place] | | | | | | [address] | | | | | | [phone] | | | +--------+ + + + [...] the medications are there and ready for olive picker. Explained t o Kevyn that he was [...] be sure that he is able to olive picker his new prescriptions. elephone Encounter - Dori Loya CMA - 9 9:48 AM PST1. Please ask if patient has had any further instances of chest pain/heaviness (this was determined to be non cardiac related chest pain in the hospital). No, chest pain. Patient reports feeling fatigue, no other symptoms. 2. Was he able to olive picker new prescriptions and start taking Omeprazole daily [...] " one place has called him" This [facility] will f ollow up on referrals. Told patient This [facility] or a RNCM will follow up with him today or tomorrow. Regarding insuli n and blood sugars. Telephone Encounter - Sanjuanita Rodriguez RN - 12/27/2018 8:00 AM PSTChart Review completed tonadege and routed to the [facility] clinical pool. Please call patient on 12/31/2018 [...] the hospital). 2. Was he able to olive picker new prescriptions and start taking Omeprazole daily [...] | | | | | | [place] [address] | | | | | | [phone] | | | | | | | | +--------+ + + + + documented as of this encounter Visit Diagnoses Not on filedocumented in this encounter
--- OUTSIDE RECORDS SUMMARY | ~2019-10-12 | XMS | Encounter Summary ---
Demographics + + + | Address | [address] | | | [place] [address] | + + + | Home Phone | | + + + | Preferred Language | Unknown | + + + | Marital Status | | + + + | Confucianism Affiliation | 1027 | + + + | Race | White | + + + | Ethnic Group | Not or | + + + Author + + + | Author | [facility] | | | and [place] | + + + | Organization | [facility] | | | and [place] | + + + | Address | Unknown | + + + | Phone | Unavailable | + + + Support + + + + + | Name | Relationship | Address | Phone | + + + + + | Sammi Kohler | ECON | [place] [address] | | + + + + + Care Team Providers + +------+ + | Care Yarn Man Name | Role | Phone | [...] 2013 | | MEDICAL CENTER | [address] | to improper use of | | | | EMERGENCY CENTER | [place], [place] | drug, initial | | | | [address] | [address] | encounter; | | | | [place], [place] | | Hypertension; | | | | [address] | | Anxiety | | | | [phone] | | | +--------+ + + + [...] Author: Doris Moya Service: (none) Author Type: Instrument Man Filed: 01/27/14307 Date of Service: 01/27/14306 Status: Signed Echo Technician: Doris Moya (Instrument Man) KAITLYNN/Vianey Schwab. ETA 0320 Doris Moya 01/27/14307 Bimal Cheung MD - 01/27/2014 2:56 AM PST ED Provider Notes by Bimal Ramirez DO at 01/27/14255 Author: Bimal Ramirez DO Service: (none) Author Type: Physician Filed: 01/28/14 0012 Date of Service: 01/27/14255 Status: Signed Echo Technician: Bimal Ramirez DO (Physician) [facility] Department of Emergency Medicine 2:56 AM 01/27/2014 History of Present Illness Patient Identification Kevyn Guzman is a 58 y.o. male. Patient information was obtained from patient. History/Exam limitations: none. 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 Patient [...] - CHOLECYSTECTOMY; Surgeon: Jevon Vargas DO; Location: [facility] MAIN OR; Service: General; Laterality: N/A; Abdominal surgery Cholecystectomy Skin cancer excision 10/10/2012 Procedure: EXCISION - SKIN CANCER; Surgeon: Sy Fierro MD; Location: [facility] MAIN OR ; Service: Plastics; Laterality: Left; upper arm and upper back w/frozen section Esophagogastroduodenoscopy 03/03/2013 Procedure: ESOPHAGOGASTRODUODENOSCOPY; Surgeon: Howie Gisbon MD; Location: [facility] ENDOSCOPY; S ervice: Gastroenterology; Laterality: N/A; Colonoscopy 03/04/2013 Procedure: COLONOSCOPY; Surgeon: Howie Gibson MD; Location: [facility] ENDOSCOPY; Service: Gastroe nterology; Laterality: N/A; Upper gastrointestinal endoscopy Skin biopsy Hernia repair 07/03/2013 Procedure: LAPAROSCOPIC - HERNIA - INCISIONAL; Surgeon: Jevon Vargas DO; Location: [facility] MAIN OR; Service: General; Laterality: N/A; Prior to Admission medications Medication Sig Start Date End Date Taking? Authorizing Provider Albuterol Sulfate (VENTOLIN HFA IN) Inhale 2 puffs into the lungs as needed. 108 mcg/act Historical Provider Erbnb-U-Oxgixyyqizmta (BEANO) TABS Take 150 Units by mouth [...] daily. 180 mg at hs 11/30/13 11/30/14 [facility] carlyn Mae MD docusate sodium [...] 100 mg by mouth nightly. Historical Provider fowfvysoz-bwmnajkf-kvhfnkurb hydroxide-simethicone Take 40 mLs by mouth daily [...] of Children: 1 Years of Education: [email or web address] Occupational History disabled Social History Main Topics [...] sore throat CV/Resp: Negative for chest pain, mdzohafpl-tw-btljmb, cough GI: Positive for abdominal pain Negative [...] will be safe for discharge back to [facility]. Patient has no other complaints at this [...] reviewed (Using the electronic record system of [facility], [place] arellano reviewed the records with regard [...] Jerrell Gutiérrez DO In 3 days [address] [facility] [address] [facility] Emergency Department If symptoms worsen [address] [facility] [address] Discharge Medications: Discharge Medication List as of [...] 01/27/14107 Date of Service: 01/27/14101 Status: Signed Echo Technician: Renetta Goode RN (Registered Nurse) Per Froy, [...] 01/27/1448 Date of Service: 01/27/1448 Status: Signed Echo Technician: Mayra Xie RN (Registered Nurse) Bed: 10 [...] | | | | | [facility] [facility] [facility] | | | | | | [place] [address] | | | | | | [phone] | | | | | | | [...] | | Fingerstick | performed at [facility];[address] | | LAB | | | | [address];[place] | | | | | | [address] | | | | + + + [...] | | Fingerstick | performed at [facility];[address] | | LAB | | | | [address];[place] | | | | | | [address] | | | | + + + [...] | | Fingerstick | performed at [facility];[address] | | LAB | | | | [address];[place] | | | | | | [address] | | | | + + + [...] | | Fingerstick | performed at [facility];[address] | | LAB | | | | [address];[place], [place] | | | | | | [address] | | | | + + + [...]
--- OUTSIDE RECORDS SUMMARY | ~2019-10-12 | XMS | Encounter Summary ---
Demographics + + + | Address | [address] | | | [place] [address] | + + + | Home Phone [...] + | Sammi Kohler | ECON | [place] [address] | | + + + + + Care Team Providers + +------+ + | Care Receiving Associate Name | Role | Phone | + +------+ + PCP | Unavailable | + +------+ + Encounter Details +--------+ + + + + | Date | Type | Department | Care Team | Description | +--------+ + + + + | 08/29/ | Emergency | [facility] | Ger Llamas, | | | 2013 | | MEDICAL CENTER | MD [address] | | | | | EMERGENCY CENTER | [place] [address] | | | | | [address] | [phone] | | | | | [place], [place] | | | | | | [address] | | | | | | [phone] | | | +--------+ + + + [...] 2020 | visit | | [address] | | | | | | [place], | | | | | | [place] [address] | | | | | | [phone] | | | | | | | | +--------+ + + + + documented as of this encounter Visit Diagnoses Not on filedocumented in this encounter"
--- OUTSIDE RECORDS SUMMARY | ~2019-10-12 | XMS | Encounter Summary ---
Demographics + + + | Address | [address] | | | [place] [address] | + + + | Home Phone [...] + | Sammi Kohler | ECON | [place] [address] | | + + + + + Care Team Providers + +------+ + | Care Indigo Mixer Name | Role | Phone | + [...] + + | 03/27/ | Office | [facility] | Mireya Pack, | Uncontrolled type 2 | | 2020 | Visit | [facility] [address] | [employer] [address] | diabetes mellitus | | | | [address] | [address] [place], | with hyperglycemia | | | | [place], [place] | [place] [address] | ([facility]) (Primary Dx); | | | | [address] | [phone] | Vertigo; Impacted | | | | [phone] | | cerumen, left ear; | | [...] (HCC) 10/14/2017 Anxiety ARF (acute renal failure) ([facility]) 03/02/2013 Atrial fibrillation (HCC) Basal cell carcinoma 09/26/2012 arm and back COPD (chronic obstructive pulmonary disease) ([facility]) 03/02/2013 hypoxemia on 2 lts nc Depression Development delay Diabetes mellitus type II DVT (deep venous thrombosis) ([facility]) 03/29/2018 Facial droop 07/08/2013 GIB (gastrointestinal bleeding) 03/02/[address] Nur, rectal ulcers, nodule of GE junction Hypercholesterolemia 07/08/2013 Hyperlipidemia Hypertension 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 chemist (current) use of 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 Obesity, Class I, BMI 30-34.9 07/08/2013 WARD (obstructive sleep apnea) 08/11/2012 does not use CPAP because of the noise Other chronic pain Renal failure Stroke (HCC) TIA (transient ischemic attack) Unspecified visual disturbance reading glasses Past Surgical History: Procedure Laterality Date ABDOMEN SURGERY CHOLECYSTECTOMY CHOLECYSTECTOMY, LAPAROSCOPIC 09/12/2012 Procedure: LAPAROSCOPIC - CHOLECYSTECTOMY; Surgeon: Jevon Vargas DO; Location: [facility] MAIN OR; Service: General; Laterality: N/A; COLONOSCOPY COLONOSCOPY 03/04/2013 Procedure: COLONOSCOPY; Surgeon: Howie Gibson MD; Location: [facility] ENDOSCOPY; Service: Gastroen terology; Laterality: N/A; [...] FROZEN SECTION; Surgeon: Sy murcia MD; Location: [facility] MAIN OR; Service: Plastics; Laterality: Left; forearm SKIN BIOPSY SKIN CANCER EXCISION Left 10/10/2012 Procedure: EXCISION - SKIN CANCER; Surgeon: Sy Fierro MD; Location: [facility] MAIN OR; Service: Plastics; Laterality: Left; upper arm and upper back w/frozen section UPPER GASTROINTESTINAL ENDOSCOPY UPPER GASTROINTESTINAL ENDOSCOPY 03/03/2013 Procedure: ESOPHAGOGASTRODUODENOSCOPY; Surgeon: Howie Gibson MD; Location: [facility] ENDOSCOPY; Se rvice: Gastroenterology; Laterality: N/A; [...] x 1 wk, moved from [facility], , 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 2 [...] 11.0 (H) 10/14/2018 No components found for: [id number], PTHINT No results found for: [id number] Lab Results Component Value Date TSH 1.820 09/14/2018 No results found for: IRON, TIBC, FERRITIN . No results found for: FERRITIN Assessment/Plan: Kevyn was seen today for diabetes. Diagnoses and all orders for this visit: Uncontrolled type 2 diabetes mellitus with hyperglycemia (HCC) Reviewed [facility] diet, insulin management and hyperglycemia teaching Labs [...] | | | | | [address] [place], | | | | | | [place] [address] | | | | | | [phone] | | | | | | | [...] | | | | | performed at [facility];[address] | | | | | | [facility] | | | | | | [facility];[place] [address] | | | | | | | | | | + + + + + + + + | Specimen | + + | Blood | + + + + + + + | Performing | Address | City/State/Zipcode | Phone Number | | Organization | | | | + + + + + | REFERENCE LAB | [address] | [place] | [phone] | | [facility] | [address] | [address] | | | LABORATORY | | | | + + + + + | REFERENCE LAB | [address] [facility] | [place], [place] | | | [facility] | [address] | [address] | | | LABORATORY | | | [...] | | | Absolute | performed at [facility];[address] | [address] | LAB | | | | [address] | | [facility] | | | | [address];[place] [address] | | LABORATORY | | + + + + + + + + | Specimen | + + | Blood | + + + + + + + | Performing | Address | City/State/Zipcode | Phone Number | | Organization | | | | + + + + + | REFERENCE LAB | [address] [place] [address] | [place], [place] | [phone] | | [facility] | [address] | [address] | | | LABORATORY | | | | + + + + + | REFERENCE LAB | [address] [place] [address] | [place] | | | [facility] | [address] | [address] | | | LABORATORY | | | [...] REFERENCE | | | | performed at [facility];[address] | | LAB | | | | [place] | | [facility] | | | | [address];[place] [address] | | LABORATORY | | + + + + + + + + | Specimen | + + | Blood | + + + + + + + | Performing | Address | City/State/Zipcode | Phone Number | | Organization | | | | + + + + + | REFERENCE LAB | [address] | [place] | [phone] | | [facility] | [address] | [address] | | | LABORATORY | | | | + + + + + | REFERENCE LAB | [address] [facility] | [place] | | | [facility] | [address] | [address] | | | LABORATORY | | | [...] [facility] | | | | Blvd;[place] [address] | | LABORATORY | | + + + + + + + + | Specimen | + + | Blood | + + + + + + + | Performing | Address | City/State/Zipcode | Phone Number | | Organization | | | | + + + + + | REFERENCE LAB | [address] | [place] | [phone] | | [facility] | [address] | [address] | | | LABORATORY | | | | + + + + + | REFERENCE LAB | [address] | [place] | | | [facility] | [address] | [address] | | | LABORATORY | | | [...] | | | | | | MDRD IDPA traceable | | | | | | equation.Testing | | | | | | performed at [facility];[address] | | | | | | [facility] | | | | | | [facility];[place] [address] | | | | | | | | | | + + + + + + + + | Specimen | + + | Blood | + + + + + + + | Performing | Address | City/State/Zipcode | Phone Number | | Organization | | | | + + + + + | REFERENCE LAB | [address] [place] [address] | [place], [place] | [phone] | | [facility] | [address] | [address] | | | LABORATORY | | | | + + + + + | REFERENCE LAB | [address] [place] [address] | [place], [place] | | | [facility] | [address] | [address] | | | LABORATORY | | | [...]
--- OUTSIDE RECORDS SUMMARY | ~2019-10-12 | XMS | Encounter Summary ---
Demographics + + + | Address | [address] | | | [place] [address] | + + + | Home Phone [...] Sammi Kohler | ECON | [place] [address] | | + + + + + Care Team Providers + +------+ + | Care Helicopter Specialist Name | Role | Phone | + +------+ + | Mireya Pack NP | PCP | | + +------+ + Encounter Details +--------+ + + + + | Date | Type | Department | Care Team | Description | +--------+ + + + + | 09/21/ | Orders Only | [facility] | Conversion | | | 2019 | | CONVERSION DEP [address] | Transaction, | | | | | [address] | Provider Unknown | | | | | [place], [place] | [phone] | | | | | [address] | | | | | | [phone] | | | +--------+ + + + [...] [place], | | | | | | [place] [address] | | | | | | [phone] | | | | | | | [...]
--- OUTSIDE RECORDS SUMMARY | ~2019-10-12 | XMS | Encounter Summary ---
Demographics + + + | Address | [address] | | | [place] [address] | + + + | Home Phone [...] + | Sammi Kohler | ECON | [place] [address] | | + + + + + Care Team Providers + +------+ + | Care Electron Beam Machine Welder Setter Name | Role | Phone | + +------+ + PCP | Unavailable | + +------+ + Encounter Details +--------+ + + + + | Date | Type | Department | Care Team | Description | +--------+ + + + + | 11/16/ | Emergency | [facility] | Ramirez, Bimal S, | Closed head injury, | | 2015 | | [facility] | MD [address] | initial encounter; | | | | EMERGENCY CENTER | [place], [place] | Forehead contusion, | | | | [address] | [address] | initial encounter | | | | [place], [place] | | | | | | [address] | | | | | | [phone] | | | +--------+ + + + [...] 11/16/141933 Date of Service: 11/16/141932 Status: Signed Wagon Driver Salesperson: José Luis Marti RN (Registered Nurse) Pt now c/o CARYN ESPAÑA aware. José Luis Marti RN 11/16/141933 Bimal Cheung MD - 11/16/2014 7:23 PM PDT ED Provider Notes by Bimal Ramirez DO at 11/16/141922 Author: Bimal Ramirez DO Service: (none) Author Type: Physician Filed: 11/16/14 8763 Date of Service: 11/16/141922 Status: Signed Wagon Driver Salesperson: Bimal Ramirez DO (Physician) [facility] Department of Emergency Medicine 7:24 PM 11/16/2014 History of Present Illness Patient Identification Norah Gr is a 58 y.o. male. Patient information was obtained from patient and EMS personnel. History/Exam limitations: none. Patient presented to the Emergency Department by: [facility] 1723 (PCP: JERRELL GUTIÉRREZ.) Chief Complaint Chief complaint: Chief Complaint Patient presents with Head Injury pt hell and hit his head, currently on Coumadin Location: forehead Quality: head injury secondary to fall Severity: moderate Duration: constant Timing: just ONCOLOGY RN Modifying factors: none Care prior to arrival: [...] - CHOLECYSTECTOMY; Surgeon: Jevon Vargas DO; Location: [facility]; Service: General; Laterality: N/A; Abdominal surgery Cholecystectomy Skin cancer excision 10/10/2012 Procedure: EXCISION - SKIN CANCER; Surgeon: Sy Fierro MD; Location: [facility] ; Service: Plastics; Laterality: Left; upper arm and upper back w/frozen section Esophagogastroduodenoscopy 03/03/2013 Procedure: ESOPHAGOGASTRODUODENOSCOPY; Surgeon: Howie Gibson MD; Location: [facility] ENDOSCOPY; S ervice: Gastroenterology; Laterality: N/A; Colonoscopy 03/04/2013 Procedure: COLONOSCOPY; Surgeon: Howie Gibson MD; Location: [facility] ENDOSCOPY; Service: Gastroe nterology; Laterality: N/A; Upper gastrointestinal endoscopy Skin biopsy Hernia repair 07/03/2013 Procedure: LAPAROSCOPIC - HERNIA - INCISIONAL; Surgeon: Jevon Vargas DO; Location: [facility]; Service: General; Laterality: N/A; Skin lesion excision Left 05/05/2014 Procedure: EXCISION - LESION - FROZEN SECTION; Surgeon: Sy Fierro MD; Location: [facility]; Service: Plastics; Laterality: Left; forearm Prior to Admission medications Medication Sig Start Date End Date Taking? Authorizing Provider Albuterol Sulfate (VENTOLIN HFA IN) Inhale 2 puffs into the lungs as needed. 108 mcg/act Historical Provider Znigy-G-Chpllrdwajoeo (BEANO) TABS Take 150 Units by mouth [...] 100 mg by mouth nightly. Historical Provider gdbtlothu-hrywqlbw-omtgvjlem hydroxide-simethicone Take 40 mLs by mouth daily [...] sore throat CV/Resp: Negative for chest pain, lftumijah-wq-uciaaf, cough GI: Negative for abdominal pain, nausea, [...] reviewed (Using the electronic record system of [facility], [place] michaely reviewed the records with regard to the past medical/surgical history, previous medic ations, and allergies). 7:37 PM. Nursing notes reviewed for chief complaint, medications, clinical presentation and vital signs. Laboratory Evaluation Results Procedure Component Value Ref Range Date/Time Protime-INR [[id number]] Collected: 11/16/142015 Order Status: Completed Specimen Information: Blood Updated: 11/16/144 INR 1.5 I personally reviewed the lab [...] Follow up With Details Comments Contact Info [facility] Emergency Department If symptoms worsen [address] [facility] [address] Jerrell Gutiérrez, DO In 1 week For follow up [address] [place] [address] [facility] [address] Discharge Medications: Discharge Medication List as of 11/16/2014 8:54 PM This document has been prepared with a voice recognition system. The possibility of "sound alike" oxygen therapy technician errors, addition and/or deletions may occur. If [...] | | | | | [address], | | | | | | [place] [address] | | | | | | [phone] | | | | | | | | +--------+ + + + + documented as of this encounter Procedures + +--------+ + + + | Procedure Name | Priori | Date/Time | Associated Diagnosis | Comments | | | ty | | | | + +--------+ + + + | PROTIME INR | Routin | 11/16/2014 | | [...] [facility];[address] | | | | | | [address];[place], [place] | | | | | | [address] | | | | + + + [...] Joaquin Ramos - 09/20/2018 10:29 PM SHALONDA GR8 years MaleCT | | HEAD WO [id number]/11/2015 7:51 PM INDICATION: Head injury. The patient [...]
--- OUTSIDE RECORDS SUMMARY | ~2019-10-12 | XMS | Encounter Summary ---
Demographics + + + | Address | [address] | | | [place] [address] | + + + | Home Phone [...] + | Sammi Kohler | ECON | [place] [address] | | + + + + + Care Team Providers + +------+ + | Care Flavor Room Worker Name | Role | Phone | + +------+ + PCP | Unavailable | + +------+ + Encounter Details +--------+ + + + + | Date | Type | Department | Care Team | Description | +--------+ + + + + | 10/13/ | Emergency | [facility] | Zach Tena, | Chest pain, | | 2013 | | [facility] | MD [address] | non-cardiac | | | | EMERGENCY CENTER | [place] [address] | | | | | [address] | [phone] | | | | | [place], [place] | | | | | | [address] | | | | | | [phone] | | | +--------+ + + + [...] of Service: 10/13/13 1325 Status: Signed Clinical Services Consultant: Shree Reilly RN (Registered Nurse) Transport to [facility] Shree Reilly RN 10/13/13 1325 onver ivana Transaction, Provider Unknown - 10/13/2013 1:00 PM PDT ED Notes by Shree Reilly RN at 10/13/13 1300 Author: Shree Reilly RN Service: (none) Author Type: Registered Nurse Filed: 10/13/13 1300 Date of Service: 10/13/13 1300 Status: Signed Clinical Services Consultant: Shree Reilly RN (Registered Nurse) MD at bedside.Darinel Reilly RN 10/13/13 1300 immZach avalos MD - 10/13/2013 12:59 PM PDTFormatting of this note might be different from the o riginal. 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 [...] - CHOLECYSTECTOMY; Surgeon: Jevon Vargas DO; Location: [facility] MAIN OR; Service: General; Laterality: N/A; Abdominal surgery Cholecystectomy Skin cancer excision 10/10/2012 Procedure: EXCISION - SKIN CANCER; Surgeon: Sy Fierro MD; Location: [facility] MAIN OR ; Service: Plastics; Laterality: Left; upper arm and upper back w/frozen section Esophagogastroduodenoscopy 03/03/2013 Procedure: ESOPHAGOGASTRODUODENOSCOPY; Surgeon: Howie Gibson MD; Location: [facility] ENDOSCOPY; S ervice: Gastroenterology; Laterality: N/A; Colonoscopy 03/04/2013 Procedure: COLONOSCOPY; Surgeon: Howie Gibson MD; Location: [facility] ENDOSCOPY; Service: Gastroe nterology; Laterality: N/A; Upper gastrointestinal endoscopy Skin biopsy Hernia repair 07/03/2013 Procedure: LAPAROSCOPIC - HERNIA - INCISIONAL; Surgeon: Jevon Vargas DO; Location: [facility] MAIN OR; Service: General; Laterality: [...] into the skin nightly. H istorical Provider qdyxibfgd-ohjdmktc-iknphknpv hydroxide-simethicone Take 40 mLs by mouth daily [...] acute emergent cause of the symptoms. Revised Craighead Score Variable Score Age 65 years or [...] Value Ref Range Date/Time Troponin I, Lab [[id number]] Collected: 10/13/13 1656 Order Status: Completed Updated: 10/13/13 1727 Specimen Information: Blood TROPONIN I 0.024 0.00 - 0.10 ng/mL Comprehensive metabolic panel [[id number]] (Abnormal) Collected: 10/13/13 1256 Order Status: Completed [...] EGFR >60 >60 mL/min/1.73m2 Troponin I, Lab [[id number]] Collected: 10/13/13 125 Order Status: Completed Updated: 10/13/13 1347 Specimen Information: Blood TROPONIN I <0.02 0.00 - 0.10 ng/mL Lipase [[id number]] Collected: 10/13/13 125 Order Status: Completed Updated: 10/13/13 1347 LIPASE 112 73 - 393 U/L D Dimer,Quantitative [[id number]] (Abnormal) Collected: 10/13/13 1256 Order Status: Completed Updated: 10/13/13 1338 D DIMER, QUANTITATIVE 1.05 (H) 0.19 - 0.50 mg/L FEU Protime-INR [[id number]] Collected: 10/13/13 1256 Order Status: Completed Updated: 10/13/13 1338 INR 1.0 CBC W/Auto Diff (Reflex to Manual) [[id number]] (Abnormal) Collected: 10/13/13 1256 Order Status: Completed [...] 0 - 0.1 K/uL POC cardiac troponin [[id number]] Collected: 10/13/13 1257 Order Status: Completed Updated: [...] of the chest. 22 August 2013, prior s kenyatta for comparison. Findings: Cardiomediastinum is normal. Lungs [...] Comments Contact Info Jerrell Gutiérrez, DO In 2 days For follow up appointment [address] [facility] [address] [facility] Emergency Department If symptoms worsen [address] [facility] [address] Discharge Medications: Discharge Medication List as of [...] Kirill Hammond RN Service: (none) Author Type: Numerical Control Programmer Filed: 10/13/13 1248 Date of Service: 10/13/131247 Status: Signed Clinical Services Consultant: Kirill Hammond RN (Registered Nurse) Bed: 19 [...] | | | | | | [place] [address] | | | | | | [phone] | | | | | | | [...] | EXTERNAL LAB: CBC | Routin | 10/13/2013 | | Results [...] | | | | | | [address] [facility];[place], [place] | | | | | | [address] | | | | + + + [...] - 09/21/2018 3:31 PM PDT NORAH Andrea SIMÓNCT CHEST PULMONARY | | EMBOLISM W CONTRAST10/13/2013 [...] at [facility] | | | | | | [address] [facility];[place], [place] | | | | | | [address] | | | | + + + [...] at [facility] | | | | | | [facility];[place], [place] | | | | | | [address] | | | | + + + [...] CITY;[address] | | | | | | [facility];[place], [place] | | | | | | [address] | | | | + + + [...] [place] | | | | | | [address] | | | | + + + + + + | Non- | 5.24Comment: Testing | 4.20 - 5.70 | EXTERNAL | | | Red Blood | performed at [facility] | M/uL | LAB | | | Cells | [address];[place] | | | | | Counted | [address] | | | | + + + + + + | Hemoglobin | 14.3Comment: Testing | 13.2 - 17.0 | EXTERNAL | | | | performed at [facility] | g/dL | LAB | | | | [address];[place] | | | | | | [address] | | | | + + + + + + | Hematocrit, | 41.6Comment: Testing | 39.0 - 50.0 % | EXTERNAL | | | POC | performed at [facility];[address] | | LAB | | | | [address];[place] | | | | | | [address] | | | | + + + + + + | MCV | 79.4 (L)Comment: Testing | 80.0 - 100.0 fl | EXTERNAL | | | | performed at [facility];[address] | | LAB | | | | [address];[place] | | | | | | [address] | | | | + + + + + + | MCH | 27.2Comment: Testing | 27.0 - 34.0 pg | EXTERNAL | | | | performed at [facility];[address] | | LAB | | | | [address];[place] | | | | | | [address] | | | | + + + + + + | MCHC | 34.3Comment: Testing | 32.0 - 35.5 | EXTERNAL | | | | performed at [facility];[address] | g/dL | LAB | | | | [address];[place] | | | | | | [address] | | | | + + + + + + | RDW-CV | 41.1Comment: Testing | 37 - 53 fl | EXTERNAL | | | | performed at [facility];[address] | | LAB | | | | [address];[place] | | | | | | [address] | | | | + + + + + + | Platelet | 316Comment: Testing | 150 - 400 K/uL | EXTERNAL | | | Count | performed at [facility];[address] | | LAB | | | Plasma | [address];[place] | | | | | | [address] | | | | + + + + + + | MPV | 7.6Comment: Testing | fl | EXTERNAL | | | | performed at [facility];[address] | | LAB | | | | [address];[place] | | | | | | [address] | | | | + + + + + + | Differentia | AUTOMATEDComment: | | EXTERNAL | | | l Type | Testing performed at | | LAB | | | | [facility];[address];[place] [address] | | | | + + + + + + | % Segmented | 58.7Comment: Testing | % | EXTERNAL | | | | performed at [facility];[address] | | LAB | | | Neutrophils | [address];[place] | | | | | | [address] | | | | + + + + + + | % | 28.5Comment: Testing | % | EXTERNAL | | | Lymphocytes | performed at [facility];[address] | | LAB | | | | [address];[place] | | | | | | [address] | | | | + + + + + + | % Monocytes | 9.9Comment: Testing | % | EXTERNAL | | | | performed at [facility];[address] | | LAB | | | | [address];[place] | | | | | | [address] | | | | + + + + + + | % | 2.5Comment: Testing | % | EXTERNAL | | | Eosinophils | performed at [facility];[address] | | LAB | | | | [address];[place] | | | | | | [address] | | | | + + + + + + | % Basophils | 0.4Comment: Testing | % | EXTERNAL | | | | performed at [facility];[address] | | LAB | | | | [address];[place] | | | | | | [address] | | | | + + + + + + | Absolute | 6.1Comment: Testing | 1.9 - 7.4 K/uL | EXTERNAL | | | Segmented | performed at [facility];[address] | | LAB | | | Neutrophils | [address];[place] | | | | | | [address] | | | | + + + + + + | Absolute | 3.0Comment: Testing | 1.0 - 3.9 K/uL | EXTERNAL | | | Lymphocytes | performed at [facility];[address] | | LAB | | | | [address];[place] | | | | | | [address] | | | | + + + + + + | Absolute | 1.0 (H)Comment: Testing | 0 - 0.8 K/uL | EXTERNAL | | | Monocytes | performed at [facility];[address] | | LAB | | | | [address];[place] | | | | | | [address] | | | | + + + + + + | Absolute | 0.3Comment: Testing | 0 - 0.5 K/uL | EXTERNAL | | | Eosinophils | performed at [facility];[address] | | LAB | | | | [address];[place] | | | | | | [address] | | | | + + + + + + | Absolute | 0.0Comment: Testing | 0 - 0.1 K/uL | EXTERNAL | | | Basophils | performed at [facility];[address] | | LAB | | | | [address];[place] | | | | | | [address] | | | | + + + [...] | LAB | | | | [address];[place], [place] | | | | | | [address] | | | | + + + [...] [place] | | | | | | [address] | | | | + + + + + + | K | 3.8Comment: Testing | 3.5 - 4.9 | EXTERNAL | | | | performed at [facility];[address] | mmol/L | LAB | | | | [address];[place] | | | | | | [address] | | | | + + + + + + | Cl | 105Comment: Testing | 99 - 109 mmol/L | EXTERNAL | | | | performed at [facility];[address] | | LAB | | | | [address];[place] | | | | | | [address] | | | | + + + + + + | CO2 | 28Comment: Testing | 23 - 32 mmol/L | EXTERNAL | | | | performed at [facility];[address] | | LAB | | | | [address];[place] | | | | | | [address] | | | | + + + + + + | Anion Gap | 12Comment: Testing | 5 - 20 mmol/L | EXTERNAL | | | | performed at [facility];[address] | | LAB | | | | [address];[place] | | | | | | [address] | | | | + + + + + + | Glucose, | 214 (H)Comment: Testing | 65 - 99 mg/dL | EXTERNAL | | | Fasting | performed at [facility];[address] | | LAB | | | | [address];[place] | | | | | | [address] | | | | + + + + + + | BUN | 19Comment: Testing | 8 - 25 mg/dL | EXTERNAL | | | | performed at [facility];[address] | | LAB | | | | [address];[place] | | | | | | [address] | | | | + + + + + + | Creatinine | 1.08Comment: Testing | 0.70 - 1.30 | EXTERNAL | | | | performed at [facility];[address] | mg/dL | LAB | | | | [address];[place] | | | | | | [address] | | | | + + + + + + | BUN/Creatin | 17Comment: Testing | | EXTERNAL | | | ine Ratio | performed at [facility];[address] | | LAB | | | | [address];[place] | | | | | | [address] | | | | + + + + + + | Calcium | 9.0Comment: Testing | 8.5 - 10.2 | EXTERNAL | | | | performed at [facility];[address] | mg/dL | LAB | | | | [address];[place] | | | | | | [address] | | | | + + + + + + | Protein, | 7.5Comment: Testing | 6.3 - 8.2 g/dL | EXTERNAL | | | Total | performed at [facility];[address] | | LAB | | | | [address];[place] | | | | | | [address] | | | | + + + + + + | Albumin | 3.5 (L)Comment: Testing | 3.6 - 5.0 g/dL | EXTERNAL | | | | performed at [facility];[address] | | LAB | | | | [address];[place] | | | | | | [address] | | | | + + + + + + | Globulin | 4.0Comment: Testing | 1.3 - 4.9 g/dL | EXTERNAL | | | | performed at [facility];[address] | | LAB | | | | [address];[place] | | | | | | [address] | | | | + + + + + + | A/G Ratio | 4.7 (H)Comment: Testing | 1.0 - 2.4 | EXTERNAL | | | | performed at [facility];[address] | | LAB | | | | [address];[place] | | | | | | [address] | | | | + + + + + + | Bilirubin | 0.3Comment: Testing | 0.1 - 1.5 mg/dL | EXTERNAL | | | Total | performed at [facility];[address] | | LAB | | | | [address];[place] | | | | | | [address] | | | | + + + + + + | ALP, | 99Comment: Testing | 35 - 115 U/L | EXTERNAL | | | External | performed at [facility];[address] | | LAB | | | | [address];[place] | | | | | | [address] | | | | + + + + + + | AST | 29Comment: Testing | 10 - 45 U/L | EXTERNAL | | | | performed at [facility];[address] | | LAB | | | | [address];[place] | | | | | | [address] | | | | + + + + + + | ALT | 30Comment: Testing | 10 - 65 U/L | EXTERNAL | | | | performed at [facility];[address] | | LAB | | | | [address];[place] | | | | | | [address] | | | | + + + [...] | at [facility];[address] [place] [address] | | | | | | [facility];[place] [address] | | | | + + + [...] (500), | | | | | | loan expeditor Anshu Soliz | | | | | | (35) on 10/13/2013 4:11:25 | | | | | | PM | | | | + + + + + + + + | Specimen | + + | | + + + + + | Narrative | Performed At | + + + | Historically converted procedure from [facility] Epic environment | EXTERNAL LAB [...]
--- OUTSIDE RECORDS SUMMARY | ~2019-10-12 | XMS | Encounter Summary ---
Demographics + + + | Address | [address] | | | [place] [address] | + + + | Home Phone [...] + | Sammi Kohler | ECON | [place] [address] | | + + + + + Care Team Providers + +------+ + | Care Finish Rolls Operator Name | Role | Phone | + +------+ + | Mireya Pack NP | PCP | | + +------+ + Encounter Details +--------+ + + + + | Date | Type | Department | Care Team | Description | +--------+ + + + + | 08/22/ | Telephone | [facility] | Jeni Dean, | | | 2019 | | CENTER | SPECIAL EDUCATION PARAEDUCATOR [address] | | | | | ANTICOAGULATION | [place] [address] | | | | | [facility] | [phone] | | | | | [address] | | | | | | [place], [place] | | | | | | [address] | | | | | | [phone] | | | +--------+ + + + [...] this encounter Miscellaneous Notes Telephone Encounter - Jein Dean ARNP - 08/23/2019 4:40 PM PDTTC to [facility] to speak sara Ceja regarding pt [...] 2019 | visit | | [address] | | | | | | [place] | | | | | | [place] [address] | | | | | | [phone] | | | | | | | | +--------+ + + + + documented as of this encounter Visit Diagnoses + + | Diagnosis | + + | Atrial fibrillation with RVR ([facility]) Atrial fibrillation | + + documented in this encounter"
--- OUTSIDE RECORDS SUMMARY | ~2019-10-12 | XMS | Encounter Summary ---
Demographics + + + | Address | [address] | | | [place] [address] | + + + | Home Phone [...] | Sammi Kohler | ECON | [place] [address] | | + + + + + Care Team Providers + +------+ + | Care Urgent Care Physician Name | Role | Phone | + +------+ + | Mireya Pack NP | PCP | | + +------+ + Reason for Visit +--------+--------+ + | Reason | Onset | Comments | | | Date | | +--------+--------+ + | Other | 09/10/ | elevated blood sugar | | | 2020 | | +--------+--------+ + Encounter Details +--------+ + + + + | Date | Type | Department | Care Team | Description | +--------+ + + + + | 09/10/ | Telephone | [facility] [place] | Lucia Amos | Lelia (elevated | | 2020 | | [facility] [address] | S RN | blood sugar) | | | | [address] | | | | | | [place] | | | | | | [address] | | | | | | [phone] | | | +--------+ + + + [...] Telephone Encounter - Lucia Amos RN - 09/11/2019 5:01 PM PDTCall made to patient, relayed provider's recommendations, he stated understanding. elephone Encounter - Arelis Galindo MD - 09/10 4:53 PM PDTIncrease humalog to 25 units before today's supper. Needs ED f/u appt with pcp. thx elephone Enc ounter - Lucia Amos RN - 09/11/2019 4:44 PM PDTPatient called back to follow up on his call earlier. 458 is his blood sugar right now and patient wants to know what to do. He is not having any symptoms. Informed that this will be routed to another provider in clinic. He stated unders tanding. Routed to another provider. What are your recommendations for this? elephone Encounte r - Lucia Amos RN - 09/11/2019 2:28 PM PDTC/o blood sugar elevated. Was seen in ED yesterday. Symptoms x 3 days. Today is 400+ couple of minutes ago. Ate orange chicken and donuts and drank diet soda and water. Patient confirmed that he is still doing the two insulins ordered - levemir 45u at [facility] and humalog 20u three times a day with meals. Routed to PCP. What are your recommendations [...] | | | | | | [place] [address] | | | | | | [phone] | | | | | | | | +--------+ + + + + documented as of this encounter Visit Diagnoses Not on filedocumented in this encounter"
--- OUTSIDE RECORDS SUMMARY | ~2019-10-12 | XMS | Encounter Summary ---
Demographics + + + | Address | [address] | | | [place] [address] | + + + | Home Phone [...] + | Sammi Kohler | ECON | [place] [address] | | + + + + + Care Team Providers + +------+ + | Care Appraiser Land Name | Role | Phone | + +------+ + PCP | Unavailable | + +------+ + Encounter Details +--------+ + + + + | Date | Type | Department | Care Team | Description | +--------+ + + + + | 01/29/ | Emergency | [facility] | Antony, Kirill W, | Suicidal ideations | | 2011 | | [facility] | MD [address] | | | | | EMERGENCY CENTER | [place] [address] | | | | | [address] | [phone] | | | | | [place], [place] | | | | | | [address] | | | | | | [phone] | | | +--------+ + + + [...] 01/30/12610 Date of Service: 01/30/12609 Status: Signed Hostage Negotiator: Rik Moise RN (Registered Nurse) Patient waiting for Crisis to complete eval, and for MD dispo. Rik Moise RN 01/30/12610 onver ivana Transaction, Provider Unknown - 01/30/2012 6:02 AM PST ED Notes by Rik Moise RN at 01/30/12601 Author: Rik Moise RN Service: (none) Author Type: Registered Nurse Filed: 01/30/12602 Date of Service: 01/30/12601 Status: Signed Hostage Negotiator: Rik Moise RN (Registered Nurse) [place] and drink given to patient. Rik Moise RN 01/30/12602 onver ivana Transaction, Provider Unknown - 01/30/2012 6:01 AM PST ED Notes by Rik Moise RN at 01/30/12600 Author: Rik Moise RN Service: (none) Author Type: Registered Nurse Filed: 01/30/12601 Date of Service: 01/30/12600 Status: Signed Hostage Negotiator: Rik Moise RN (Registered Nurse) When patient is ready for discharge, at patient request, "Sammi" can be called at [phone]. Rik Moise RN 01/30/12601 onver ivana Transaction, Provider Unknown - 01/30/2012 5:46 AM PST ED Notes by Rik Moise RN at 01/30/12545 Author: Rik Moise RN Service: (none) Author Type: Registered Nurse Filed: 01/30/12546 Date of Service: 01/30/12545 Status: Signed Hostage Negotiator: Rik Moise RN (Registered Nurse) Crisis [facility] at bedside to eval patient. Rik Moise RN 01/30/12546 onver ivana Transaction, Provider Unknown - 01/30/2012 5:37 AM PST ED Notes by Jun Allen RN at 01/30/12536 Author: Jun Allen RN Service: (none) Author Type: Registered Nurse Filed: 01/30/12536 Date of Service: 01/30/12536 Status: Signed Hostage Negotiator: Jun Allen RN (Registered Nurse) CRU at Jun Allen RN 01/30/12536 onver ivana Transaction, Provider Unknown - 01/30/2012 5:31 AM PST ED Notes by Rik Moise RN at 01/30/12530 Author: Rik Moise RN Service: (none) Author Type: Registered Nurse Filed: 01/30/12531 Date of Service: 01/30/12530 Status: Signed Hostage Negotiator: Rik Moise RN (Registered Nurse) Patient reminded of need for urine sample. Rik Moise RN 01/30/12531 onver ivana Transaction, Provider Unknown - 01/30/2012 4:22 AM PST ED Notes by Rik Moise RN at 01/30/12421 Author: Rik Moise RN Service: (none) Author Type: Registered Nurse Filed: 01/30/12422 Date of Service: 01/30/12421 Status: Signed Hostage Negotiator: Rik Moise RN (Registered Nurse) Patient given [...] 01/30/12338 Date of Service: 01/30/12338 Status: Signed Hostage Negotiator: Rik Moise RN (Registered Nurse) Report to Hermes Moise RN 01/30/12338 onver viana Transaction, Provider Unknown - 01/30/2012 3:29 AM PST ED Notes by Rik Moise RN at 01/30/12328 Author: Rik Moise RN Service: (none) Author Type: Registered Nurse Filed: 01/30/12329 Date of Service: 01/30/12328 Status: Signed Hostage Negotiator: Rik Moise RN (Registered Nurse) Patient denies any ETOH use tonight. Patient denies taking any extra medications. Patient given water to drink and informed of need for urine sample. Rik Moise RN 01/30/12329 onver ivana Transaction, Provider Unknown - 01/30/2012 3:27 AM PST ED Notes by Rik Moise RN at 01/30/12326 Author: Rik Moise RN Service: (none) Author Type: Registered Nurse Filed: 01/30/12327 Date of Service: 01/30/12326 Status: Signed Hostage Negotiator: Rik Moise RN (Registered Nurse) Pt reports [...] 01/30/12324 Date of Service: 01/30/12324 Status: Signed Hostage Negotiator: Rik Moise RN (Registered Nurse) 2 patient identifiers checked. Bed in low position. Call light in reach. Patient gowned. Patient in view of nurse's station. Rik Moise RN 01/30/12324 Kirill Teixeira MD - 01/30/2012 3:24 AM PST ED Provider Notes by Kirill Hardy MD at 01/30/12323 Author: Kirill Hardy MD Service: (none) Author Type: Physician Filed: 02/01/12 2232 Date of Service: 01/30/12323 Status: Signed Hostage Negotiator: Kirill Hardy MD (Physician) 3:24 AM [facility] Department of Emergency Medicine History of Present Illness Patient Identification Kevyn Guzman is a 56 y.o. male. Patient information was obtained from patient. History/Exam limitations: none. Patient presented to the Emergency Department [place] [address] Room:03 Chief Complaint Chief Complaint Patient presents [...] with an intermittent course since that ti me. The pt has a history of depression, [...] following: WBC 13.3 (*) [place] [facility] [place] [place] [address] EOSINOPHILS 7.3 (*) LYMPHOCYTES ABS 4.2 (*) MONOCYTES ABS 0.9 (*) EOSINOPHILS ABS 1.0 (*) All other components within normal limits COMPREHENSIVE METABOLIC PANEL - Abnormal; Notable for the following: POTASSIUM 3.4 (*) [place] [facility] [place] [place] [address] GLUCOSE 159 (*) [place] [facility] [place] [place] [address] CREATININE 1.46 (*) [place] [facility] [place] [place] [address] A/G 0.8 (*) [place] [facility] [place] [place] [address]63 EGFR 53 (*) All other components within normal limits ACETAMINOPHEN LEVEL - Abnormal; Notable for the following: ACETAMINOPHEN <2.0 (*) Testing [place] [facility] [place] [place] [address] All other components within normal limits SALICYLATE LEVEL - Abnormal; Notable for the following: SALICYLATE 2.4 (*) Testing [place] [facility] [place] [place] [address] All other components within normal limits RAPID [...] Make an appointment in 4 days [address] [facility] [address] [facility] [place] [address] [facility] [place] [address] [facility] If symptoms worsen [address] [address] Discharge Medications: New Prescriptions No new medications Additional Documentation Procedures Attending Note: Documentation assistance provided by AMIRA BANDA (Scribe). Information recorded by the scribe has been reviewed and validated by me. Troy laughlin with its contents. MD Kirill Heard MD 02/01/12 2232 documente d in this encounter Plan of Treatment +--------+ + + + + | Date | Type | Specialty | Care Team | Description | +--------+ + + + + | 10/16/ | Anti-coag | Anticoagulation | Brittany Zaragoza | | | 2020 | visit | | [address] | | | | | | [facility], | | | | | | [place] [address] | | | | | | [phone] | | | | | | | | +--------+ + + + + documented as of this encounter Visit Diagnoses + + | Diagnosis | + + | Suicidal ideations Suicidal ideation | + + documented in this encounter
--- OUTSIDE RECORDS SUMMARY | ~2019-10-12 | XMS | Encounter Summary ---
Demographics + + + | Address | [address] | | | [place] [address] | + + + | Home Phone [...] + | Sammi Kohler | ECON | [place] [address] | | + + + + + Care Team Providers + +------+ + | Care Bilingual [employer] Teacher Name | Role | Phone | + +------+ + PCP | Unavailable | + +------+ + Encounter Details +--------+ + + + + | Date | Type | Department | Care Team | Description | +--------+ + + + + | 06/16/ | [facility] | [facility] | Preet, | Elevated blood | | 2017 - | Encounter | [facility] | MD Jorge [address] | pressure; | | | | CARE FLOOR [address] | [address] | Cerebrovascular | | 06/17/ | | [address] | [place] [address] | accident (CVA), | | 2017 | | [place], [place] | [phone] | unspecified | | | | [address] | | mechanism (HCC); | | | | [phone] | | Numbness and | | | | | | tingling of right | | | | | | leg; Type 2 diabetes | | | | | | mellitus without | | | | | | complication, with | | | | | | long-term current | | | | | | use of insulin | | | | | | (HCC); senior care | | | | | | (current) [...] 06/17/161125 Date of Service: 06/17/161114 Status: Addendum Terrazzo Worker Apprentice: Samson Blanchard MD (Physician) Related Notes: Original Note by Samson Blanchard MD (Physician) filed at 06/17/16 1125 [facility] Service: Hospitalist Discharge Summary Date of [...] a 60 y.o. male who per H&P: [facility] Service: Hospitalist Admission History & Physical [...] pain Stroke (HCC) TIA (transient ischemic attack) senior care (current) use of 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 Past Surgical History Procedure Laterality Date Unlisted procedure arthroscopy Knee surgery rt knee, patella Leg surgery LLE Colonoscopy Abdominal surgery Cholecystectomy Upper gastrointestinal endoscopy Skin biopsy Skin lesion excision Left 05/05/2014 Procedure: EXCISION - LESION - FROZEN SECTION; Surgeon: Sy Fierro MD; Location: [facility]; Service: Plastics; Laterality: Left; forearm Hernia repair N/A 07/03/2013 Procedure: LAPAROSCOPIC - HERNIA - INCISIONAL; Surgeon: Jevon Vargas DO; Location: [facility]; Service: General; Laterality: N/A; Colonoscopy N/A 03/04/2013 Procedure: COLONOSCOPY; Surgeon: Howie Gibson MD; Location: [facility]COPY; Service: Gastroe nterology; Laterality: N/A; Esophagogastroduodenoscopy N/A 03/03/2013 Procedure: ESOPHAGOGASTRODUODENOSCOPY; Surgeon: Howie Gibson MD; Location: [facility]OSCOPY; S ervice: Gastroenterology; Laterality: N/A; Skin cancer excision Left 10/10/2012 Procedure: EXCISION - SKIN CANCER; Surgeon: Sy Fierro MD; Location: [facility] ; Service: Plastics; Laterality: Left; upper arm and upper back w/frozen section Cholecystectomy, laparoscopic N/A 09/12/2012 Procedure: LAPAROSCOPIC - CHOLECYSTECTOMY; Surgeon: Jevon Vargas DO; Location: [facility]; Service: General; Laterality: N/A; Allergies Allergen Reactions Vitamin B12 Rash Prescriptions prior to admission Medication Sig Dispense Refill Last Dose Albuterol Sulfate (VENTOLIN HFA IN) Inhale 2 puffs into the lungs as needed. 108 mcg/ac t 02/21/2015 at Unknown time Zuhhi-G-Biyyteswdwqcd (BEANO) TABS Take 150 Units by mouth [...] mouth nightly. 02/20/2015 at Unkno wn time yvblypqlt-imliswev-upldlreho hydroxide-simethicone Take 40 mLs by mouth daily [...] mouth daily. Or as directed by the [facility] 30 tablet 0 02/21/2015 at Unknown time [...] 58.15 MONOPCT 9.65 9.18 Recent Labs Lab 06/17/163 NA 143 K 3.9 CL 107 CO2 [...] Multiplanar MRA sequences according to a standard [facility] protocol were acquired with contrast. Contrast: [...] Multiplanar MRI sequences according to a standard departri nt protocol were acquired without contrast. 3-D xnht-hn-syikfc MRA images. MIP reformations of the anterior [...] Jerrell Gutiérrez, DO [address] [facility] [address] In 1 week Medication List CHANGE how [...] tablet Refills: 0 Commonly known as: LaMICtal qqaosuewh-hgwqsxtj-yduhtzcho hydroxide-simethicone Refills: 0 lisinopril 40 MG tablet [...] 1221 Date of Service: 06/17/161217 Status: Signed Terrazzo Worker Apprentice: Igor Birch RN (Registered Nurse) Coumadin given this shift, patient educated on continued use of coumadin and INR- coumadin book given to patient and reviewed. All discharge paperwork completed, all questions answere d. IV dc'd. Patient transferred via wheelchair by staff. IGOR BIRCH RN onver ivana Transaction, Provider Unknown - 06/17/2016 11:34 AM PDT Case Management by Isidro Tejeda RN at 06/17/16 5124 Author: Isidro Tejeda RN Service: (none) Author Type: Registered Nurse Filed: 06/17/161213 Date of Service: 05/12/17 1134 Status: Addendum Terrazzo Worker Apprentice: Isidro Tejeda RN (Registered Nurse) Related Notes: Original Note by Isidro Tejeda RN (Registered Nurse) filed at 06/17/16 12 14 Patient does not have anybody to give him a ride home and he doesn't have any money to pay for a ride. I set up transport with [employer] for pick out hand at 1230. Patient has no preferance for , referral and face to face given to [facility] for RN to help wi th medication management. onver ivana Transaction, Provider Unknown - 06/17/2016 11:04 AM PDT Therapy Progress Note by Yojana Salvador MA CCC-REEL MAN at 06/17/16 1104 Author: Yojana Salvador MA CCC-REEL MAN Service: (none) Author Type: Speech and Flatcar Whacker ologist Filed: 10/17/16 0852 Date of Service: 06/17/16 1104 Status: Addendum Terrazzo Worker Apprentice: Yojana Salvador MA CCC-REEL MAN (Speech and Language Pathologist) Related Notes: Original Note by Yojana Salvador MA CCC-REEL MAN (Speech and Language Pathologis t) filed at 06/17/16 1104 06/17/16 1045 REEL MAN Last Visit REEL MAN Received On 06/17/16 Requires REEL MAN Follow Up No Swallowing Assessment Eval Swallowing [...] no restrictions Liquids Thin liquids: regular consistency REEL MAN Ready for Discharge Yes Dysphagia Goals Prison Goals Safe/efficient oral intake Pt will have safe/efficient oral intake Thin liquids;Regular diet;Goal met Short Term Goals Tolerate diet Pt will tolerate diet Regular Yojana Salvador MA CCC-REEL MAN 06/17/2016 Functional Limitation - G Codes Swallowing: $[id number] Current Status : CH - 0 percent impaired, limited or restricted $[id number] D/C Status : CH - 0 percent impaired, limited or restricted Rationale: No difficulty with swallowing at this time. onver ivana [place] Provider Unknown - 06/17/2016 8:30 AM PDT Therapy Progress Note by Hakeem Wheeler PT at 06/17/16829 Author: Hakeem Wheeler PT Service: (none) Author Type: Physical Therapist Filed: 06/17/16916 Date of Service: 06/17/16829 Status: Signed Terrazzo Worker Apprentice: Hakeem Wheeler PT (Physical Therapist) 06/17/16829 PT [...] Equipment Cane quad Prior Function Level of [place] Independent with ADLs;Independent with IADLs;Modified independent wi th functional mobility Falls in Past Year Yes Lives With Alone Receives Help From Other (Comment);Systems Coordinator (nursing services come out once a week) [...] at home with these services Low - 88128 Moderate - 38139 High - 29275 History no personal factors &/or comorbidities 1-2 personal factors &/or comorbidities 3 o r more personal factors &/or comorbidities Examination 1-2 elements 3 elements 4 or more elements Clinical Presentation stable evolving unstable Clinical Decision Making Complexity: Low 12134 Moderate 53236 High 89166 onver ivana Transaction, Provider Unknown - 06/17/2016 6:12 AM PDT Progress Notes by Di Gregory RN at 06/17/16611 Author: Di Gregory RN Service: (none) Author Type: Registered Nurse Filed: 06/17/16616 Date of Service: 06/17/16611 Status: Signed Terrazzo Worker Apprentice: Di Gregory RN (Registered Nurse) Pt alert [...] 06/16/162208 Date of Service: 06/16/162208 Status: Signed Terrazzo Worker Apprentice: Elias Farley RPH (Pharmacist) Clinical Pharmacy Note: Renal Monitoring Norah Andrea Gr 60 y.o. male Ht Readings from [...] 06/16/162133 Date of Service: 06/16/162040 Status: Signed Terrazzo Worker Apprentice: Jorge Oviedo MD (Physician) [facility] Service: Hospitalist Admission History & Physical [...] department for further assessment and treatment. In [facility] ED the patient has remained hemodynamically [...] pain Stroke (HCC) TIA (transient ischemic attack) senior care (current) use of 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 Past Surgical History Procedure Laterality Date Unlisted procedure arthroscopy Knee surgery rt knee, patella Leg surgery LLE Colonoscopy Abdominal surgery Cholecystectomy Upper gastrointestinal endoscopy Skin biopsy Skin lesion excision Left 05/05/2014 Procedure: EXCISION - LESION - FROZEN SECTION; Surgeon: Sy Fierro MD; Location: [facility]; Service: Plastics; Laterality: Left; forearm Hernia repair N/A 07/03/2013 Procedure: LAPAROSCOPIC - HERNIA - INCISIONAL; Surgeon: Jevon Vargas DO; Location: [facility]; Service: General; Laterality: N/A; Colonoscopy N/A 03/04/2013 Procedure: COLONOSCOPY; Surgeon: Howie Gibson MD; Location: [facility]; Service: Gastroe nterology; Laterality: N/A; Esophagogastroduodenoscopy N/A 03/03/2013 Procedure: ESOPHAGOGASTRODUODENOSCOPY; Surgeon: Howie Gibson MD; Location: [facility]; S ervice: Gastroenterology; Laterality: N/A; Skin cancer excision Left 10/10/2012 Procedure: EXCISION - SKIN CANCER; Surgeon: Sy Fierro MD; Location: [facility] ; Service: Plastics; Laterality: Left; upper arm and upper back w/frozen section Cholecystectomy, laparoscopic N/A 09/12/2012 Procedure: LAPAROSCOPIC - CHOLECYSTECTOMY; Surgeon: Jevon Vargas DO; Location: [facility]; Service: General; Laterality: N/A; No current facility-administered medications on file prior to encounter. Current Outpatient Prescriptions on File Prior to Encounter Medication Sig Dispense Refill Albuterol Sulfate (VENTOLIN HFA IN) Inhale 2 puffs into the lungs as needed. 108 mcg/ac t Nfyvf-F-Gbhxbrjlfrtwv (BEANO) TABS Take 150 Units by mouth [...] tablet Take 100 mg by mouth nightly. ynwciwkqf-ksrwwnmg-jlstdjtyy hydroxide-simethicone Take 40 mLs by mouth daily [...] mouth daily. Or as directed by the [facility] 30 tablet 0 Immunizations: Influenza: Pneumoccocal: [...] x 1 wk, moved from [facility], , 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 2 falls [...] Component Value Units Date/Time ED Stroke Panel [[id number]] (Abnormal) Collected: 06/16/162000 WBC 10.85 K/uL Updated: [...] Emergency Department Author Type: Physician Filed: 06/16/16 9437 Date of Service: 06/16/161947 Status: Signed Terrazzo Worker Apprentice: Jose Wagner DO (Physician) [facility] Department of Emergency Medicine 7:49 PM History [...] pain Stroke (HCC) TIA (transient ischemic attack) senior care (current) use of 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 Past Surgical History Procedure Laterality Date Unlisted procedure arthroscopy Knee surgery rt knee, patella Leg surgery LLE Colonoscopy Abdominal surgery Cholecystectomy Upper gastrointestinal endoscopy Skin biopsy Skin lesion excision Left 05/05/2014 Procedure: EXCISION - LESION - FROZEN SECTION; Surgeon: Sy Fierro MD; Location: [facility]; Service: Plastics; Laterality: Left; forearm Hernia repair N/A 07/03/2013 Procedure: LAPAROSCOPIC - HERNIA - INCISIONAL; Surgeon: Jevon Vargas DO; Location: [facility]; Service: General; Laterality: N/A; Colonoscopy N/A 03/04/2013 Procedure: COLONOSCOPY; Surgeon: Howie Gibson MD; Location: [facility]; Service: Gastroe nterology; Laterality: N/A; Esophagogastroduodenoscopy N/A 03/03/2013 Procedure: ESOPHAGOGASTRODUODENOSCOPY; Surgeon: Howie Gibson MD; Location: [facility]; S ervice: Gastroenterology; Laterality: N/A; Skin cancer excision Left 10/10/2012 Procedure: EXCISION - SKIN CANCER; Surgeon: Sy Fierro MD; Location: [facility] ; Service: Plastics; Laterality: Left; upper arm and upper back w/frozen section Cholecystectomy, laparoscopic N/A 09/12/2012 Procedure: LAPAROSCOPIC - CHOLECYSTECTOMY; Surgeon: Jevon Vargas DO; Location: [facility]; Service: General; Laterality: N/A; Prior to Admission medications Medication Sig Start Date End Date Taking? Authorizing Provider Albuterol Sulfate (VENTOLIN HFA IN) Inhale 2 puffs into the lungs as needed. 108 mcg/act Historical Provider Qzfpr-T-Fwxvrhctlhtyl (BEANO) TABS Take 150 Units by mouth [...] 100 mg by mouth nightly. Historical Provider oblherzyi-wbvyeamp-pydaowqsx hydroxide-simethicone Take 40 mLs by mouth daily [...] x 1 wk, moved from [facility], , 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 2 falls [...] sore throat CV/Resp: Negative for chest pain, nyeoekrxh-ds-wpgczi, cough GI: Positive for abdominal pain Negative [...] Value Ref Range Date/Time ED Stroke Panel [[id number]] (Abnormal) Collected: 06/16/162000 Order Status: Completed Updated: [...] Time: 2009 Rate: 48 Rhythm: sinus bradycardia [place]: normal Intervals: normal ST: normal Compared to 02/01/16 there is no change Overall: Nonspecific EKG Interpreted by Jose Wagner D.O. 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 Information rec orded by the scribe has been reviewed and validated by me. I agree with its contents. Signed by: Kari Ashraf 06/16/2016 8:53 PM DO Jose De La Cruz DO 06/16/16 0162 onversion Merchant saction, Provider Unknown - 06/16/2016 7:19 PM PDTFormatting of this note might be differen t from the original. ED Notes by Mohit Davies RN at 06/16/161918 Author: Mohit Davies RN Service: (none) Author Type: Registered Nurse Filed: 06/16/161920 Date of Service: 06/16/161918 Status: Signed Terrazzo Worker Apprentice: Mohit Davies RN (Registered Nurse) Pt comes from [facility]; phone report from Nick Weiss: Pt has [...] (none) Author Type: Registered Nurse Filed: 06/17/16 114 Date of Service: 06/17/161124 Status: Signed Terrazzo Worker Apprentice: Igor Birch RN (Registered Nurse) Balance LTG - Patient [...] | | | | | | [place] [address] | | | | | | [phone] | | | | | | | [...] | | | Fingerstick | performed at [facility];[address] | | LAB | | | | [address];[place] | | | | | | [address] | | | | + + + [...] | | | Excursion: 1.83 cm E-F Leake: 0.10 m/s EPSS: 0.15 cm HR: | [...] | A Mick: 0.49 m/s TV Dec Leake: 1.57 m/s2 TV Dec Time: | | | 465.17 ms TV E Mick: 0.73 m/s TV E/A Ratio: 1.46 | | | Car Wiper: LUMA Authenticated by: Alexei Camacho MD Report | | | Date/Time: 06-17-2016 13:10:22 | | + + + + + | Procedure Note | + + | Joaquin Ramos Conversion - 09/19/2018 4:20 PM PDT Patient Name: Sim GR of | | : 1955 Performing Physician: Alexei Camacho | | MD INDICATIONS S | | [place] CONCLUSIONS 1. Left ventricular systolic function is [...] (A-L): 20.02 ml/m2LAAs A2C: | | 15.86 lk0GTVHZ A-L A2C: 38.52 mlLALs A2C: 5.54 cmLAAs A4C: 18.18 hz6MNKCG A-L A4C: | | 51.41 mlLALs A4C: 5.45 cmAo Diam: 3.55 cmAV Cusp: 2.06 cmLA Diam: 4.52 | | cmLA/Ao: 1.27D-E Excursion: 1.83 cmE-F Leake: 0.10 m/sEPSS: 0.15 cmHR: 49.82 | | BPMAV maxP.99 mmHgAV meanP.93 mmHgAV Vmax: 1.87 m/Jason Vmean: 1.35 m/Jason | | VTI: 46.29 cmAVA Vmax: 3.08 cm2AVA (VTI): 3.04 kx3GCFD Vmax: 0.00 cm2/m2AVAI | | (VTI): 0.00 cm2/m2LVCI Dopp: 3.25 l/jkyj1JCVX Dopp: 7.28 l/minHR: 51.60 BPMLVOT | | [...] 0.62 m/sMV VTI: 47.71 cmMVA (VTI): 2.95 jb3Rzpojc e': 0.11 | | m/sSeptal E/e': 9.67Lateral e': 0.11 m/sLateral E/e': 8.97P Vein A: 0.35 m/sP | | Vein A Dur: 170.70 msP Vein D: 0.46 m/sP Vein S/D Ratio: 1.54P Vein S: 0.71 | | m/sRAP: 10 mmHgRV S': 0.20 m/sRVSP: 43.03 mmHgTR maxP.03 mmHgTR Vmax: | | 2.87 m/sTV A Mick: 0.49 m/sTV Dec Leake: 1.57 m/s2TV Dec Time: 465.17 msTV E Mick: | | 0.73 m/sTV E/A Ratio: 1.46 Car Wiper: LUMAAuthenticated by: Alexei Camacho | | MDReport Date/Time: [...] | |D-E Excursion: 1.83 cm | |E-F Leake: 0.10 m/s | |EPSS: 0.15 cm | [...] A Mick: 0.49 m/s | |TV Dec Leake: 1.57 m/s2 | |TV Dec Time: 465.17 ms | |TV E Mick: 0.73 m/s | |TV E/A Ratio: 1.46 | | | |Car Wiper: LUMA | |Authenticated by: Alexei Camacho MD [...] - 1.030 | EXTERNAL | | | [place], | | | LAB | | | [...] | | | Urine | performed at [facility], [address] | | LAB | | | | [address], | | | | | | [place] [address] | | | | + + + [...] | | | Fingerstick | performed at [facility];[address] | | LAB | | | | [address];[place], [place] | | | | | | [address] | | | | + + + + + + + + | Specimen | + + | | + + + +---------+ + + | Performing | Address | City/State/Zipcode | Phone Number | | Organization | | | | + +---------+ + + | EXTERNAL LAB | | | | + +---------+ + + External Lab: EVE (06/17/2016 4:33 AM PDT) + + + [...] K/uL | LAB | | | | [address], | | | | | | [place] [address] | | | | + + + [...] EXTERNAL | | | | performed at [facility], [address] | | LAB | | | | [address], | | | | | | [place] [address] | | | | + + + [...] EXTERNAL | | | | performed at [facility], [address] | | LAB | | | | [address], | | | | | | [place] [address] | | | | + + + [...] | EXTERNAL | | | A1c | [place] Diabetes | | LAB | | | [...] | | | | | performed at [facility], [address] | | | | | | [facility], | | | | | | [place] [address] | | | | + + + [...] | | | Direct | performed at [facility], [address] | | LAB | | | | [address], | | | | | | [place] [address] | | | | + + + [...] | | | Calculated | performed at [facility], [address] | | LAB | | | | [address], | | | | | | [place] [address] | | | | + + [...] | | | | | | at [facility], [address] | | | | | | [address], | | | | | | [place] [address] | | | | + + + [...] | | | Fingerstick | performed at [facility];[address] | | LAB | | | | [address];[place] | | | | | | [address] | | | | + + + [...] acquired | | | without contrast. 3-D gger-pj-egfqhu MRA images. MIP reformations of | | [...] Rad Conversion - 09/19/2018 4:20 PM PDT HISTORY:Right-sided numbness. CVA. | | TECHNIQUE:MRI imaging of the brain was performed on a 1.5 Eden MRI system. Multiplanar | | MRI sequences according to a standard department protocol were acquired without | | contrast. 3-D ykaj-bs-pxsedg MRA images. MIP reformations of the anterior [...] (665), | | | | | | make up editor Bryanna Ku | | | | | | (129) on 06/17/2016 | | | | | | 3:11:09 AM | | | | + + + + + + + + | Specimen | + + | | + + + + + | Narrative | Performed At | + + + | Historically converted procedure from [facility] Epic environment | EXTERNAL LAB | [...] | | | | | | ACUTE DC Testing | | | | | | performed at [facility] | | | | | | [facility];[place], [place] | | | | | | [address] | | | | + + + [...] | | (HCC) | + + | senior care (current) use of 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 Long-term (current) use of 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 | + + documented in this encounter
--- OUTSIDE RECORDS SUMMARY | ~2019-10-12 | XMS | Encounter Summary ---
Demographics + + + | Address | [address] | | | [place] [address] | + + + | Home Phone [...] + | Sammi Kohler | ECON | [place] [address] | | + + + + + Care Team Providers + +------+ + | Care Caregiver Assisted Living Name | Role | Phone | + +------+ + | Mireya Pack NP | PCP | | + +------+ + Reason for Visit + + + | Reason | Comments | + + + | Anticoagulation | | + + + | New Patient | | + + + Evaluate & Treat (Urgent) + + + + + + + | Status | Reason | Specialty | Diagnoses / | Referred By | Referred To | | | | | Procedures | Contact | Contact | + + + + + + + | Authorized | Specialty | Anticoagulati | Diagnoses | [facility], | [facility] | | | Services | on | Chronic | Mireya Calixto NP | Anticoagulati | | | Required | | a-fib (HCC) | [address] | on Clinic | | | | | | [address] [facility] | [place] | | | | | | [address] | [address] | | | | | | [place], [place] | [place], | | | | | | [address] | [place] [address] | | | | | | Phone: | Phone: | | | | | | [phone] | [phone] | | | | | | Fax: | Fax: | | | | | | [phone] | [phone] | + + + + + + + Encounter Details +--------+ + + + + | Date | Type | Department | Care Team | Description | +--------+ + + + + | 08/06/ | Anti-coag | [facility] | Mireya Pack, | Longstanding | | 2020 | visit | CENTER | MASK DESIGN ENGINEER [address] | persistent atrial | | | | ANTICOAGULATION | [address] [place], | fibrillation (HCC) | | | | [facility] [address] | (Primary Dx); Atrial | | | | [address] | [phone] | fibrillation with | | | | [place], [place] | | RVR (HCC) | | | | [address] | Jeni Dean, SCREEN STRETCHER | | | | | [phone] | [address] | | | | | | [place] [address] | | | | | | [phone] | | | | | | | [...] +---------+ + + | Blood Pressure | 167/79 | 08/07/2019 1:23 PM | | | | | PDT | | + +---------+ + + | Pulse | 82 | 08/07/2019 1:23 PM | | | | | PDT | | + +---------+ + + | Temperature | - | - | | + +---------+ + + | Respiratory Rate | 12 | 08/07/2019 1:23 PM | | | | | PDT | | + +---------+ + + | [...] +---------+ + + documented in this encounter Functional [...] encounter H&P Notes Jeni Dean ARNP - 08/07/2019 1:00 PM PDTFormatting of this note might be different fr om the original. ANTICOAGULATION HISTORY & PHYSICAL Name: Kevyn Guzman Date of : 1955 Provider: CITLALY Leonard Date of Service: 08/07/2019 ANTICOAGULATION NOTE INITIAL CONSULT REFERRING PROVIDER: Mireya Pack Np [address] [address] PRIMARY CARE PHYSICIAN: Mireya Pack NP INDICATION FOR ANTICOAGULATION: 1. Longstanding persistent atrial fibrillation (HCC) warfarin (COUMADIN) 5 mg tablet HISTORY OF PRESENT ILLNESS: Kevyn Guzman is a 63 y.o. male who was placed on warfarin in 2014 following atrial fibrill ation and TIA. He was followed in this clinic from May 2014 thru January 2015 when his P CP took over Warfarin management. He has since changed providers. More recently the patient was hospitalized July 22 due to palpitations and paroxysmal atria l fibrillation. It does not appear that he was taking Warfarin at that time. He was discha rged home on Eliquis, however due to cost he did not have this filled. More recently he was seen by CITLALY Pereira, PCP, who recommended starting warfarin and was given a 14 day supply. When interviewed today, Kevyn is unsure if he is taking Warfarin, nor can he tell m e what other medications he is currently taking. He reports that he lives alone and has a [facility] nurse coming to his house twice a week to help with medications and fill his pill box. He also states he has a caregiver that comes three days a week. Kevyn reports that he remembers the pharmacy delivering his Warfarin but he misplaced the p rescription. He states he is not taking it. He requests that a new prescription is [facility] to [facility]. PAST MEDICAL HISTORY: Past Medical History: Diagnosis Date Acute pulmonary embolism (HCC) 10/14/2017 Anxiety ARF (acute renal failure) (HCC) 03/02/2013 Atrial fibrillation (HCC) Basal cell carcinoma 09/26/2012 arm and back COPD (chronic obstructive pulmonary disease) ([facility]) 03/02/2013 hypoxemia on 2 lts nc Depression Development delay Diabetes mellitus type II DVT (deep venous thrombosis) ([facility]) 03/29/2018 Facial droop 07/08/2013 GIB (gastrointestinal bleeding) 03/02/[address] Nur, rectal ulcers, nodule of GE junction Hypercholesterolemia 07/08/2013 Hyperlipidemia Hypertension 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 Obesity, Class I, BMI 30-34.9 07/08/2013 WARD (obstructive sleep apnea) 08/11/2012 does not use CPAP because of the noise Other chronic pain Renal failure Stroke (HCC) TIA (transient ischemic attack) Unspecified visual disturbance reading glasses PAST SURGICAL HISTORY: Past Surgical History: Procedure Laterality Date ABDOMEN SURGERY CHOLECYSTECTOMY CHOLECYSTECTOMY, LAPAROSCOPIC 09/12/2012 Procedure: LAPAROSCOPIC - CHOLECYSTECTOMY; Surgeon: Jevon Vargas DO; Location: [facility] MAIN OR; Service: General; Laterality: N/A; COLONOSCOPY COLONOSCOPY 03/04/2013 Procedure: COLONOSCOPY; Surgeon: Howie Gibson MD; Location: [facility] ENDOSCOPY; Service: Gastroen terology; Laterality: N/A; HERNIA REPAIR 07/03/2013 Procedure: LAPAROSCOPIC - HERNIA - INCISIONAL; Surgeon: Jevon Vargas DO; Location: [facility]; Service: General; Laterality: N/A; KNEE SURGERY rt knee, patella LEG SURGERY LLE OTHER SURGICAL HISTORY UNLISTED PROCEDURE ARTHROSCOPY OTHER SURGICAL HISTORY Left 05/05/2014 SKIN LESION EXCISION - Procedure: EXCISION - LESION - FROZEN SECTION; Surgeon: Sy murcia MD; Location: [facility] MAIN OR; Service: Plastics; Laterality: Left; forearm SKIN BIOPSY SKIN CANCER EXCISION Left 10/10/2012 Procedure: EXCISION - SKIN CANCER; Surgeon: Sy Fierro MD; Location: [facility] MA[facility] OR; Service: Plastics; Laterality: Left; upper arm and upper back w/frozen section UPPER GASTROINTESTINAL ENDOSCOPY UPPER GASTROINTESTINAL ENDOSCOPY 03/03/2013 Procedure: ESOPHAGOGASTRODUODENOSCOPY; Surgeon: Howie Gibson MD; Location: [facility] ENDOSCOPY; Se rvice: Gastroenterology; Laterality: N/A; CURRENT MEDICATIONS: Current Outpatient Medications Medication Sig Dispense Refill ARIPiprazole (ABILIFY) 5 mg tablet Take 1 [...] for this visit. ALLERGIES: Allergies Allergen Reactions Nitroglycerin Swelling Tongue swelling Vitamin B12 Rash Rash FAMILY HISTORY: Family History Problem Relation Age of Onset Heart disease Father Heart disease Sister Diabetes, NIDDM Sister Other (see comment) Brother Heart Problems SOCIAL HISTORY: Social History Socioeconomic History Marital status: Spouse [...] file Gets together: Not on file Attends protestant service: Not on file Active member of [...] Lives alone x 1 wk, moved from [facility], , 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 2 falls in the last 6 months. REVIEW OF SYSTEMS: Review of Systems Constitutional: Negative for activity change, appetite change and fatigue. HENT: Negative. Eyes: Negative for visual disturbance. Respiratory: Negative for cough, chest tightness, shortness of breath and wheezing. Cardiovascular: Negative for chest pain, palpitations and leg swelling. Gastrointestinal: Negative. Genitourinary: Negative for difficulty urinating and hematuria. Musculoskeletal: Negative for back pain, gait problem, neck pain and neck stiffness. Skin: Negative for rash and wound. Neurological: Negative for dizziness and headaches. Hematological: Does not bruise/bleed easily. Psychiatric/Behavioral: The patient is nervous/anxious. PHYSICAL EXAMINATION: Physical Exam Vitals signs reviewed. Constitutional: Appearance: Normal appearance. He is normal weight. HENT: Head: Normocephalic and atraumatic. Eyes: Conjunctiva/sclera: Conjunctivae normal. Cardiovascular: Rate and Rhythm: Normal rate and regular rhythm. Pulmonary: Effort: Pulmonary effort is normal. No respiratory distress. Musculoskeletal: General: No swelling or tenderness. Right lower leg: No edema. Left lower leg: No edema. Skin: General: Skin is warm and dry. Findings: No bruising. Neurological: General: No focal deficit present. Mental Status: He is alert and oriented to person, place, and time. Psychiatric: Mood and Affect: Mood normal. Thought Content: Thought content normal. ASSESSMENT: Persistent atrial fibrillation Goal INR: 2.0-3.0 PLAN: 1. Prescription for Warfarin 5 mg tabs [facility]. Pt will start this tomorrow. 2. Patient education was provided. Topics included indication for warfarin therapy, mechan ism of medication action, medication interactions, importance of dietary consistency and tary restrictions. Safety concerns and precautions were discussed including s/s of clotting and bleeding. The bleeding could be as minor as bruising or as severe as internal bleeding , such as GI bleed or intracranial bleed. All questions were answered. Written information was also provided. Patient states understanding of information and plan and will call the linic with any questions or concerns. 3. I have placed a call to [facility] to speak with home health nurse. I was transferred to Ana duckworth, the director, who states that the nurse who visited the patient documented that the roberto ent did not have a Warfarin prescription nor any tablets of Warfarin in his already filled b ox. I have requested that a home health nurse check in with him tomorrow afternoon to phyllis berumen he received the Warfarin prescription from [facility] and it is put in his pill box. 4. Follow up scheduled for 1 week. documented in this e ncounter Plan of Treatment +--------+ + + + + | Date | Type | Specialty | Care Team | Description | +--------+ + + + + | 10/16/ | Anti-coag | Anticoagulation | Brittany Zaragoza | | 2019 | visit | | CITLALY Lord [address] | | | | | | [address] [place], | | | | | | [place] [address] | | | | | | [phone] | | | | | | | | +--------+ + + + + documented as of this encounter Visit Diagnoses + + | Diagnosis | + + | Longstanding persistent atrial fibrillation (HCC) - Primary | + + | Atrial fibrillation with RVR (HCC) Atrial fibrillation | + + documented in this encounter"
--- OUTSIDE RECORDS SUMMARY | ~2019-10-12 | XMS | Encounter Summary ---
Demographics + + + | Address | [address] | | | [place] [address] | + + + | Home Phone [...] + | Sammi Kohler | ECON | [place] [address] | | + + + + + Care Team Providers + +------+ + | Care Form Maker Name | Role | Phone | + +------+ + PCP | Unavailable | + +------+ + Encounter Details +--------+ + + + + | Date | Type | Department | Care Team | Description | +--------+ + + + + | 12/24/ | Emergency | [facility] | [place], Irvin | Contusion of right | | 2015 | | [facility] | DO [place] [address] | knee, initial | | | | EMERGENCY CENTER | [address] | encounter | | | | [address] | [place], [place] | | | | | [place], [place] | [address] | | | | | [address] | [phone] | | | | | [phone] | | | +--------+ + + + [...] Emergency Department Author Type: Physician Filed: 12/24/14 5161 Date of Service: 12/24/14129 Status: Signed Body Engineer: Irvin Little DO (Physician) Procedures Additional Documentation Procedures [facility] Department of Emergency Medicine 3:57 PM [...] 09/12/2012 Procedure: LAPAROSCOPIC - CHOLECYSTECTOMY; Surgeon: Jevon Vragas DO; Location: [facility] MA[facility] OR; Service: [...] lungs as needed. 108 mcg/act Historical Provider Mhsey-O-Bwvxvyoruiala (BEANO) TABS Take 150 Units by mouth [...] 100 mg by mouth nightly. Historical Provider zsjthcgim-hddnrnud-skqbvcmmw hydroxide-simethicone Take 40 mLs by mouth daily [...] Lives alone x 1 wk, moved from [place], , 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 2 falls in [...] Documented by Irvin Little DO (12/24/14 01:35:20, [facility] Emergency Department, Emergency Medicine) No acute [...] Details Comments Contact Info Yuri Ramos DO [address] [facility] [id number] Discharge Medications: Discharge Medication List as of 12/24/2014 1:[address] Irvin Little, D.O. Dictation software, [employer], used which may contain error for similar sounding words even af ter review. Personal communication requested for any clarification. Irvin Little DO 12/24/14 1557 documentchad light in this encounter Plan of [...] | | | | | | [place] [id number] | | | | | | [phone] | | | | | | | [...]
--- OUTSIDE RECORDS SUMMARY | ~2019-10-12 | XMS | Encounter Summary ---
Demographics + + + | Address | [address] | | | [place] [address] | + + + | Home Phone [...] + | Sammi Kohler | ECON | [place] [address] | | + + + + + Care Team Providers + +------+ + | Care Oil Scout Name | Role | Phone | + +------+ + PCP | Unavailable | + +------+ + Encounter Details +--------+ + + + + | Date | Type | Department | Care Team | Description | +--------+ + + + + | 05/29/ | Hospital | [facility] | Conversion | | | 2015 | Encounter | CENTER SPEECH AND | Transaction, | | | | | LANGUAGE PATHOLOGY | Provider Unknown | | | | | [address] | [phone] | | | | | [facility] [place] | | | | | | [address] | | | | | | [phone] | | | +--------+ + + + [...] original. Treatment Plan by Mili Newman MS CCC-COMBER SETTER at 05/29/14951 Author: Mili Newman MS CCC-COMBER SETTER Service: (none) Author Type: Speech and Dredgemaster ologist Filed: 05/29/14 1035 Date of Service: 05/29/14951 Status: Signed Wood Floor Refinisher: Mili Newman MS CCC-COMBER SETTER (Speech and Language Pathologist) Adult Modified Barium [...] hypnotic or anxiolytic abuse, continuous Jerrell Ginny iDego, DO [address] [place] [address] Services Requested/Ordered: Modified Barium Swallow Functional Limitation [...] 05/23/14 (referral date) Type of Study: Initial [facility] [place] Diagnosis: Esophageal Esophageal Dysphagia : Appears [...] Decreased esophageal peristalsis Barium Pill: Other (comment) [facility] for pill Recommendations Recommendations/Treat Recommendations: Esophagram, GI [...] swallow/precautions: Yes Time Calculation (min): 29 min docume ntmila in this encounter Plan of Treatment +--------+ + + + + | Date | Type | Specialty | Care Team | Description | +--------+ + + + + | 10/16/ | Anti-coag | Anticoagulation | Brittany Zaragoza | | | 2019 | visit | | [address] | | | | | | [place], | | | | | | [place] [address] | | | | | | [phone] | | | | | | | | +--------+ + + + + documented as of this encounter Visit Diagnoses Not on filedocumented in this encounter"
--- OUTSIDE RECORDS SUMMARY | ~2019-10-12 | XMS | Encounter Summary ---
Demographics + + + | Address | [address] | | | [place] [address] | + + + | Home Phone [...] + | Sammi Kohler | ECON | [place] [address] | | + + + + + Care Team Providers + +------+ + | Care Electronic Engraver Name | Role | Phone | + +------+ + PCP | Unavailable | + +------+ + Encounter Details +--------+ + + + + | Date | Type | Department | Care Team | Description | +--------+ + + + + | 11/25/ | Emergency | [facility] | Zahc Tnea, | Non-cardiac chest | | 2014 | | [facility] | MD [address] | pain; Vertigo | | | | EMERGENCY CENTER | [place] [address] | | | | | [address] | [phone] | | | | | [place], [place] | | | | | | [address] | | | | | | [phone] | | | +--------+ + + + [...] Notes by Zach Tena MD at 11/25/13 1950 Author: Zach Tena MD Service: Emergency Department Author Type: Physician Filed: 11/29/13 1426 Date of Service: 11/25/13 3365 Status: Signed Leach Runner: Zach Tena MD (Physician) [facility] Department of Emergency Medicine 3:02 PM History of Present Illness Patient Identification Norah Gr is a 57 y.o. male. Patient information was obtained from patient and EMS personnel. History/Exam limitations: none. Patient presented to the Emergency Department by: [facility] 1724 Chief Complaint Chief Complaint Patient presents [...] into the skin nightly. H istorical Provider asnhoiifa-yvvkiand-dcicegzwq hydroxide-simethicone Take 40 mLs by mouth daily [...] of Children: 1 Years of Education: s. [employer] Occupational History disabled Social History Main Topics [...] (but is not limited to) pneumonia, acute ME, elec trolyte imbalance. I believe that laboratory [...] Component Value Ref Range Date/Time Cardiac Panel [[id number]] (Abnormal) Collected: 11/25/13 1455 Order Status: Completed [...] ng/mL CK-MB Index 2.7 POC cardiac troponin [[id number]] Collected: 11/25/13 1510 Order Status: Completed Updated: [...] Follow up With Details Comments Contact Info [facility] Emergency Department If symptoms worsen [address] [facility] [address] Jerrell Gutiérrez DO Schedule an appointment as soon as possible for a visit [address] [facility] [address] Discharge Medications: New Prescriptions MECLIZINE (ANTIVERT) 25 [...] 11/25/138 Date of Service: 11/25/131457 Status: Signed Leach Runner: Tatum Pratt RN (Registered Nurse) Bed: 08 Expected date: Expected time: Means of arrival: Comments: onver ivana Transaction, Provider Unknown - 11/25/2013 2:48 PM PDT ED Notes by Tatum Pratt RN at 11/25/131447 Author: Tatum Pratt RN Service: (none) Author Type: Registered Nurse Filed: 11/25/13 1449 Date of Service: 11/25/131447 Status: Signed Leach Runner: Tatum Pratt RN (Registered Nurse) Pt from living facility, having CP 6/10, radiating into back. 3 NTG without relief. Pt has hx of HTN, angina. Sinus arrythmia. Tatum Pratt RN 11/25/139 docume nted in this encounter Plan of Treatment +--------+ + + + + | Date | Type | Specialty | Care Team | Description | +--------+ + + + + | 10/16/ | Anti-coag | Anticoagulation | Nik Brittany | | | 2020 | visit | | [address] | | | | | | [place], | | | | | | [place] [address] | | | | | | [phone] | | | | | | | [...] Conversion - 09/21/2018 3:31 PM PDT NORAH [id number] years MaleXR | | CHEST 2 VIEW FRONTAL AND KIIHWVP1911/25/2013 3:40 PM INDICATION: Chest pain COMPARISON: | [...] -NOV-2013 | | | | | | 08:46,Nonspecific [...] | | | | medical transcription editor Mel Burrell | | | | [...] [place] | | | | | | [address] | | | | + + + + + -+ | Non- | 5.21Comment: Testing | 4.20 - 5.70 | EXTERNAL | | | Red Blood | performed at [facility];[address] | M/uL | LAB | | | Cells | [address];[place] | | | | | Counted | [address] | | | | + + + + + -+ | Hemoglobin | 14.1Comment: Testing | 13.2 - 17.0 | EXTERNAL | | | | performed at [facility];888 | g/dL | LAB | | | | [address];[place] | | | | | | [address] | | | | + + + + + -+ | Hematocrit, | 41.3Comment: Testing | 39.0 - 50.0 % | EXTERNAL | | | POC | performed at [facility];[address] | | LAB | | | | [address];[place] | | | | | | [address] | | | | + + + + + -+ | MCV | 79.3 (L)Comment: Testing | 80.0 - 100.0 fl | EXTERNAL | | | | performed at [facility];[address] | | LAB | | | | [address];[place] | | | | | | [address] | | | | + + + + + -+ | MCH | 27.0Comment: Testing | 27.0 - 34.0 pg | EXTERNAL | | | | performed at [facility];[address] | | LAB | | | | [address];[place] | | | | | | [address] | | | | + + + + + -+ | MCHC | 34.1Comment: Testing | 32.0 - 35.5 | EXTERNAL | | | | performed at [facility];888 | g/dL | LAB | | | | [address];[place] | | | | | | [address] | | | | + + + + + -+ | RDW-CV | 40.7Comment: Testing | 37 - 53 fl | EXTERNAL | | | | performed at [facility];[address] | | LAB | | | | [address];[place] | | | | | | [address] | | | | + + + + + -+ | Platelet | 306Comment: Testing | 150 - 400 K/uL | EXTERNAL | | | Count | performed at [facility];[address] | | LAB | | | Plasma | [address];[place] | | | | | | [address] | | | | + + + + + -+ | MPV | 7.3Comment: Testing | fl | EXTERNAL | | | | performed at [facility];[address] | | LAB | | | | [address];[place] | | | | | | [address] | | | | + + + + + -+ | Differentia | AUTOMATEDComment: | | EXTERNAL | | | l Type | Testing performed at | | LAB | | | | [facility];[address] | | | [address];[place] [address] | | | | + + + [...] [place] | | | | | | [address] | | | | + + + + + -+ | % Monocytes | 8.8Comment: Testing | % | EXTERNAL | | | | performed at [facility];[address] | | LAB | | | | [address];[place] | | | | | | [address] | | | | + + + + + -+ | % | 2.7Comment: Testing | % | EXTERNAL | | | Eosinophils | performed at [facility];[address] | | LAB | | | | [address];[place] | | | | | | [address] | | | | + + + + + -+ | % Basophils | 0.8Comment: Testing | % | EXTERNAL | | | | performed at [facility];[address] | | LAB | | | | [address];[place] | | | | | | [address] | | | | + + + + + -+ | Absolute | 5.5Comment: Testing | 1.9 - 7.4 K/uL | EXTERNAL | | | Segmented | performed at [facility];[address] | | LAB | | | Neutrophils | [address];[place] | | | | | | [address] | | | | + + + + + -+ | Absolute | 3.1Comment: Testing | 1.0 - 3.9 K/uL | EXTERNAL | | | Lymphocytes | performed at [facility];[address] | | LAB | | | | [address];[place] | | | | | | [address] | | | | + + + + + -+ | Absolute | 0.9 (H)Comment: Testing | 0 - 0.8 K/uL | EXTERNAL | | | Monocytes | performed at [facility];[address] | | LAB | | | | [address];[place] | | | | | | [address] | | | | + + + + + -+ | Absolute | 0.3Comment: Testing | 0 - 0.5 K/uL | EXTERNAL | | | Eosinophils | performed at [facility];[address] | | LAB | | | | [address];[place] | | | | | | [address] | | | | + + + + + -+ | Absolute | 0.1Comment: Testing | 0 - 0.1 K/uL | EXTERNAL | | | Basophils | performed at [facility];[address] | | LAB | | | | [address];[place] | | | | | | [address] | | | | + + + + + -+ | Na | 139Comment: Testing | 135 - 143 | EXTERNAL | | | | performed at [facility];[address] | mmol/L | LAB | | | | [address];[place] | | | | | | [address] | | | | + + + + + -+ | K | 3.8Comment: Testing | 3.5 - 4.9 | EXTERNAL | | | | performed at [facility];[address] | mmol/L | LAB | | | | [address];[place] | | | | | | [address] | | | | + + + + + -+ | Cl | 102Comment: Testing | 99 - 109 mmol/L | EXTERNAL | | | | performed at [facility];[address] | | LAB | | | | [address];[place] | | | | | | [address] | | | | + + + + + -+ | CO2 | 31Comment: Testing | 23 - 32 mmol/L | EXTERNAL | | | | performed at [facility];[address] | | LAB | | | | [address];[place] | | | | | | [address] | | | | + + + + + -+ | Anion Gap | 10Comment: Testing | 5 - 20 mmol/L | EXTERNAL | | | | performed at [facility];[address] | | LAB | | | | [address];[place] | | | | | | [address] | | | | + + + + + -+ | Glucose, | 172 (H)Comment: Testing | 65 - 99 mg/dL | EXTERNAL | | | Fasting | performed at [facility];[address] | | LAB | | | | [address];[place] | | | | | | [address] | | | | + + + + + -+ | BUN | 16Comment: Testing | 8 - 25 mg/dL | EXTERNAL | | | | performed at [facility];[address] | | LAB | | | | [address];[place] | | | | | | [address] | | | | + + + + + -+ | Creatinine | 1.20Comment: Testing | 0.70 - 1.30 | EXTERNAL | | | | performed at [facility];[address] | mg/dL | LAB | | | | [address];[place] | | | | | | [address] | | | | + + + + + -+ | BUN/Creatin | 13Comment: Testing | | EXTERNAL | | | ine Ratio | performed at [facility];[address] | | LAB | | | | [address];[place] | | | | | | [address] | | | | + + + + + -+ | Calcium | 9.1Comment: Testing | 8.5 - 10.2 | EXTERNAL | | | | performed at [facility];[address] | mg/dL | LAB | | | | [address];[place] | | | | | | [address] | | | | + + + + + -+ | Protein, | 7.7Comment: Testing | 6.3 - 8.2 g/dL | EXTERNAL | | | Total | performed at [facility];[address] | | LAB | | | | [address];[place] | | | | | | [address] | | | | + + + + + -+ | Albumin | 3.6Comment: Testing | 3.6 - 5.0 g/dL | EXTERNAL | | | | performed at [facility];[address] | | LAB | | | | [address];[place] | | | | | | [address] | | | | + + + + + -+ | Globulin | 4.1Comment: Testing | 1.3 - 4.9 g/dL | EXTERNAL | | | | performed at [facility];[address] | | LAB | | | | [address];[place] | | | | | | [address] | | | | + + + + + -+ | A/G Ratio | 0.9 (L)Comment: Testing | 1.0 - 2.4 | EXTERNAL | | | | performed at [facility];[address] | | LAB | | | | [address];[place] | | | | | | [address] | | | | + + + + + -+ | Bilirubin | 0.3Comment: Testing | 0.1 - 1.5 mg/dL | EXTERNAL | | | Total | performed at [facility];[address] | | LAB | | | | [address];[place] | | | | | | [address] | | | | + + + + + -+ | ALP, | 98Comment: Testing | 35 - 115 U/L | EXTERNAL | | | External | performed at [facility];[address] | | LAB | | | | [address];[place] | | | | | | [address] | | | | + + + + + -+ | AST | 31Comment: Testing | 10 - 45 U/L | EXTERNAL | | | | performed at [facility];[address] | | LAB | | | | [address];[place] | | | | | | [address] | | | | + + + + + -+ | ALT | 29Comment: Testing | 10 - 65 U/L | EXTERNAL | | | | performed at [facility];[address] | | LAB | | | | [address];[place] | | | | | | [address] | | | | + + + [...] | | | | | [address]vd;[place] [address] | | | | + + + + + -+ | CK, Total | 185Comment: Testing | 55 - 400 U/L | EXTERNAL | | | | performed at [facility];[address] | | LAB | | | | [address];[place] | | | | | | [address] | | | | + + + [...] [place] | | | | | | [address] | | | | + + + + + -+ | aPTT, | 24Comment: Testing | 23 - 32 seconds | EXTERNAL | | | Patient | performed at [facility];[address] | | LAB | | | | [address];[place] | | | | | | [address] | | | | + + + + + -+ | CK-MB | 5.0 (H)Comment: Testing | 0.5 - 3.6 ng/mL | EXTERNAL | | | | performed at [facility];[address] | | LAB | | | | [address];[place] | | | | | | [address] | | | | + + + [...]
--- OUTSIDE RECORDS SUMMARY | ~2019-10-12 | XMS | Encounter Summary ---
Demographics + + + | Address | [address] | | | [place] [address] | + + + | Home Phone | | + + + | Preferred Language | Unknown | + + + | Marital Status | | + + + | Sabianist Affiliation | 1027 | + + + | Race | White | + + + | Ethnic Group | Not or | + + + Author + + + | Author | [facility] | | | and [place] | + + + | Organization | [facility] | | | and [place] | + + + | Address | Unknown | + + + | Phone | Unavailable | + + + Support + + + + + | Name | Relationship | Address | Phone | + + + + + | Sammi Kohler | ECON | [place] [address] | | + + + + + Care Team Providers + +------+ + | Care Detailer Name | Role | Phone | + [...] + + | 07/22/ | Hospital | [facility] | Sergio, Reina S, | Aspiration pneumonia | | 2020 - | Encounter | [facility] | [address] | of right lung, | | | | CARE FLOOR [address] | [place] [address] | unspecified | | 07/25/ | | [address] | [phone] | aspiration pneumonia | | 2020 | | [place], [place] | | type, unspecified | | | | [address] | EnderTj, DO [address] | part of lung (HCC) | | | | [phone] | [address] | (Primary Dx); | | | | | [place] [address] | Paroxysmal atrial | | | | | [phone] | fibrillation (HCC); | | | | | | Generalized weakness | | | | | Luigi Brooks MD | | | | | | [address] | | | | | | [place] [address] | | | | | | [phone] | | | | | | | [...] Brooks MD - 07/26/2019 10:10 AM PDT [facility] Service: Hospitalist Discharge Summary Date of Admission: 07/23/2019 Date of Discharge: 07/26/2019 Discharge Provider: Luigi Brooks MD Discharge Diagnoses: Principal Problem: Pneumonia Active Problems: Diabetes mellitus, type 2 HTN (hypertension) Paroxysmal atrial fibrillation Hyperlipidemia WARD (obstructive sleep apnea) Hypertension Chronic anticoagulation BRIEF HISTORY OF PRESENTATION/HOSPITAL COURSE: Norah Guzman is a 63 y.o. male with history [...] MONOPCT 11.00 8.70 8.20 Recent Labs Lab 07/26/1951807/25/19 0549 07/24/19 0540 07/23/19 1749 NA 141 [...] discharge procedures on file. Follow up: Mireya Pack NP [address] [address] Schedule an appointment as soon as possible [...] documentation of disc harge summary. Dictation and buckler and lacer or software, Powered Outcomes, used which may contain error for similar [...] healthcare provider or pharmacist before taking any krac-ubg-fxcefiz medici walter. Some kwov-zbq-xgobfqk medicines should not be used if you [...] towels. You should also: Keep alcohol-based hand guard chief nearby. Make sure you also clean surfaces [...] Trouble talking or swallowing Feeling of doom Experience Headphones last reviewed this educational content on 01/06/201919998642-3314 The [employer]. [address] [place] [address], [place] [address]. All righ ts reserved. This information is [...] your medicine ea rly. Talk to your route sales specialist regarding the use of this medicine in children. Special care may be needed. What side effects may I notice from receiving this medicine? Side effects that you should report to your doctor or health child care supervisor as soon as p ossible: allergic reactions [...] attention (report to your doctor or health child care supervisor if they continue or are bothersome): diarrhea [...] this medicine? Tell your doctor or health child care supervisor if your symptoms do not improve. Do not treat diarrhea with over the counter products. Contact your doctor if you have diarr hea that lasts more than 2 days or if it is severe and watery. If you have diabetes, you may get a false-positive result for sugar in your urine. Check wi th your doctor or health child care supervisor. control pills may not work properly while you are taking this medicine. Talk to your doctor about using an extra method of control. NOTE:This sheet is a summary. It may not cover all possible information. If you have questi ons about this medicine, talk to your doctor, pharmacist, or health care provider. Copyright 2020 [employer] documented in this encounter Medications at Time [...] blood sugar | 400 | 3 | 03/12/20 | | | (BLOOD GLUCOSE TEST | [...] by: Dial a ride. Gordon Avendano RN Lugii Fontanez MD - 9:36 AM PDT [facility]: Hospitalist Progress Note Hospital Day: LOS: [...] Inpatient. Code Status: Full Code Dictation and buckler and lacer or software, Powered Outcomes, used which may contain error for similar s ounding words even after review. Personal communication requested for any clarification. Luigi Brooks MD 07/25/2019 9:36 AM PDT londra Tripathi RN - 07/24/2019 1:42 PM PDTPt is COVID 19 negative. Respiratory panel also negative. You may take off all isolation according to physician's clinical judgement. Thank you! Alondra Tripathi RN, MSN, Infection Prevention Coordinator Luigi Fontanez MD - 07/24/2019 10:19 AM PDTFormatti ng of this note might be different from the original. [facility]: Hospitalist Progress Note Hospital Day: LOS: [...] 175/79 Pulse: 106 117 115 122 Resp: 24 20 Temp: 36.8 C (98.2 F) [...] Inpatient. Code Status: Full Code Dictation and buckler and lacer or software, Powered Outcomes, used which may contain error for similar s ounding words even after review. Personal communication requested for any clarification. Luigi Brooks MD 07/24/2019 10:19 AM PDT documented in this enc ounter H&P Notes Ender Tj, DO - 07/24/2019 2:41 AM PDTFormatting of this note might be different from th e original. [facility]: Hospitalist Admission History & Physical Pt: Norah Guzman AGE/SEX: 63 y.o. 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 Additiona lly patient has elevated white blood cell count. [...] stable vitals, not able to reach RN. eina Hill MD - 07/23/2019 4:29 PM PDTFormatting of this note might be d ifferent from the original. [facility] Department of Emergency Medicine No flowsheet data found. History of Present Illness Patient Identification Norah Guzman is a 63 y.o. male. 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 Coordination: Coordination normal. Dfcgaa-Pqaw-Uhppkt Test and Heel to Robertson Test normal. [...] of Jul 24 316 Tue Jul 23, 20191821 CMP shows mild hypokalemia at 3.4 glucose [...] will evaluate the patient he is fa arjuniar with him as well and admit him [...] Notified Addus of d/c Community Agency Name: ([facility]) Home Health Disciplines:[facility] will resume services Equipment Durable Medical Equipment [...] discharge today. 1245: spoke with Thomas from [facility]- pt is current with them. He said that the pt's apartment complex called them and said that his door was found open- so they change d the pt's locks to his apartment. Pt will need to clam picker a new veronica from the main office a t the apartment when the pt is discharged- they are open between 1000-300, so pt needs to be discharged in between those times so that pt can get his veronica. lan of Jelena - Elayne Sanderson, OTR/L - 0 10:38 AM PDT Occupational Therapy Initial Evaluation Note Recommended discharge disposition: prison facility- states he will refuse. Pt wit [...] pericare and clothing management Toileting, Level of Davison: maximal assist (25% patient effort) Assistive Device: grab bar Toileting Assess/Train, Position: sitting, standing Toileting Impairments: ROM decreased, strength decreased, impaired balance, impaired functi onal endurance/activity tolerance Bed Mobility Additional Documentation: supine to/from sit Assistive Device: HOB elevated Supine to Sit, Level of Davison: minimal assist (75% patient effort) Safety Issues: decreased use of arms for pushing/pulling, decreased use of legs for bridgin g/pushing Impairments: impaired balance, strength decreased Transfers Additional Documentation: sit to/from stand, toilet Sit-Stand, Level of Davison: stand by assist Stand-Sit, Level of Davison: stand by assist Hoc-Bswba-Wwg, Assistive Device: cane (quad), gait belt Toilet, Level of Davison: stand by assist Toilet, Assistive Device: cane (quad), grab bars Safety Issues: weight-shifting ability decreased Impairments: strength decreased, impaired balance ROM Testing Results: no range of motion deficits identified Strength Comments: generalized weakness Goals Reflects last filed data and may be from multiple contributors. LB Dressing Goal Most Recent Value LTG Status new at 07/25/2019 1038 LTG Davison Level stand by assist at 07/25/2019 1038 LTG Adaptive Equipment mail processing associate, shoe horn, long handled, sock-aid at 07/25/2019 [...] progressing lan of Care - Diya Ponce AUTO FLEET MANAGER Student - 07/24/2019 3:00 PM PDTSpeech Therapy [...] with swallowing at this time. Please reorder AUTO FLEET MANAGER if concerns arise. Recommended discharge disposition: other [...] Reinforcement Associated attestation - Ana Roberts MA, CCC-AUTO FLEET MANAGER - 07/24/2019 3:43 PM PDTDocumen tation and evaluation conducted by AUTO FLEET MANAGER Student Diya Sales, was completed under the [...] Caregiver: (pt has [facility] caregiver, 20 hrs/mo, [facility]) Functional Status: Independent, pt is [...] care)(pt has JOE caregiver) Community Agency Name: ([facility]) Anticipated Changes Related to Illness: pt ref sent to [facility] for increase in acute care physician hours Concerns to be Addressed: basic needs concerns(ref to [facility] for incrs in hrs) Services Anticipated at Discharge: home health care, pt has [employer] [facility], ref to [facility] Equipment Used at Home: cane, straight, single point Equipment Needed after Discharge: Same as previous Pharmacy/Medication Needs: (Rx Pharmacy) Transportation Needs: other (see comments)(pt has [facility]) Initial Plan Anticipated Discharge Disposition: home with assist Expected DC Date: 07/26/19 Steps Taken Toward Discharge: Initial assessment Next Steps: Contact [facility], ref to [facility] and [facility] Notes: CM spoke with patient, pt developmentally delayed. Pt resides alone in [facility] at [address]. Pt has [facility] caregivers 20 hrs /mo through [facility] [phone] and [facility]. Pt is independent with ADL's uses cane with ambulation. Pt has [facility] and [facility] services. Pt mother in law Sammi Kohler [phone] is POA, pt has 1 son 40 [...] HOB elevated Supine to Sit, Level of Davison: modified independent Sit to Supine, Level of Davison: modified independent Transfers Additional Documentation: sit to/from stand Sit-Stand, Level of Davison: modified independent Stand-Sit, Level of Davison: modified independent Gpp-Qjrxe-Xcg, Assistive Device: cane (quad) Gait Level of Davison: modified independent Assistive Device: cane (quad) Distance (feet): 185 Range of Motion ROM Testing Results: no range of motion deficits identified Strength Strength Testing Results: no strength deficits were identified Balance Sitting Balance: Static: good balance Sitting Balance: Dynamic: good balance Standing Balance: Static: good balance Standing Balance: Dynamic: good balance lan of Sanjuanita Duckworth RN - 07/24/2019 9:13 AM PDT Problem: [...] Rounds/Family Conference Outcome: Ongoing, progressing lan of Cori Munoz RN - 07/24/2019 5:33 AM PDTPt was an admit from ED around 2350. Pt A/O x4. Afeb rile. VSS. HR in the 110's, Denies nausea, vomiting, SOB or chest pain. Pt appears to be com fortable. Call light and belongings are within reach. No acute changes since previous assess ment. Will continue to monitor. lan of Cori Bliss RN - 07/24/2019 12:17 AM PDT Problem: [...] | | | | | | [place] [address] | | | | | | [phone] | | | | | | | [...] M?MRN: | | | | | | [id number] | | | [id number] | | | riteri | | | [...] | | | St. | | | [facility] | | | y | | | [...] | | | St. | | | [facility] | | | y H. | | [...] | | | St. | | | [facility] | | | y H. | | [...] | | | [place] | | | Pin Machine Tender | | | al | | [...] | | | [place] | | | [place] Machine T[place] | | | al | | [...] | | | MIREYA, | | | BAND PRESSER | | | Nurse | | | [...] | LABORATORY | | | | [address];[place], [place] | | | | | | [address] | | | | + + + + + + + + | Specimen | + + | | + + + + + + + | Performing | Address | City/State/Zipcode | Phone Number | | Organization | | | | + + + + + | [facility] | [address] | [place] [address] | [phone] | + + + + + Magnesium (07/26/2019 5:19 AM PDT) + + + + + + | Component | Value | Ref Range | Performed | Pathologist | | | | | At | Signature | + + + + + + | Magnesium | 1.9Comment: Testing | 1.7 - 2.4 mg/dL | [facility] | | | | performed at [facility];[address] | | LABORATORY | | | | [address];[place] | | | | | | [address] | | | | + + + + + + + + | Specimen | + + | | + + + + + + + | Performing | Address | City/State/Zipcode | Phone Number | | Organization | | | | + + + + + | [facility] | [address] | [place] [address] | [phone] | + + + + + Renal [...] | >60Comment: GFR <60: | >60 | [facility] | | | GFR | CHRONIC [...] | | | | | [facility], | | | | | | [place] [address] | | | | + + + + + + + + | Specimen | + + | Blood | + + + + + + + | Performing | Address | City/State/Zipcode | Phone Number | | Organization | | | | + + + + + | [facility] | [address] | [place] [address] | [phone] | + + + + + POC [...] [place] | | | | | | [address] | | | | + + + + + + + + | Specimen | + + | | + + + + + + + | Performing | Address | City/State/Zipcode | Phone Number | | Organization | | | | + + + + + | [facility] | [address] | [place] [address] | [phone] | + + + + + POC [...] [place] | | | | | | [address] | | | | + + + + + + + + | Specimen | + + | | + + + + + + + | Performing | Address | City/State/Zipcode | Phone Number | | Organization | | | | + + + + + | [facility] | [address] | [place] [address] | [phone] | + + + + + Troponin [...] at | | | | | | [facility];[address] [facility] | | | | | | [facility];[place] [address] | | | | + + + + + + + + | Specimen | + + | Blood | + + + + + + + | Performing | Address | City/State/Zipcode | Phone Number | | Organization | | | | + + + + + | [facility] | [address] | [place] [address] | [phone] | + + + + + POC Glucose (07/25/2019 11:11 AM PDT) + + + + + + | Component | Value | Ref Range | Performed | Pathologist | | | | | At | Signature | + + + + + + | Glucose, | 163 (H)Comment: Testing | 65 - 99 mg/dL | [facility] | | | POC | performed at [facility];[address] | | LABORATORY | | | | [address];[place] | | | | | | [address] | | | | + + + + + + + + | Specimen | + + | | + + + + + + + | Performing | Address | City/State/Zipcode | Phone Number | | Organization | | | | + + + + + | [facility] | [address] | [place] [address] | [phone] | + + + + + ECG [...] | | | by VINCENT GONZALEZ MD ([id number]) | | | | | | on [...] 0.009Comment: 0.04 | 0.00 - 0.04 | [facility] | | | | ng/mL or [...] at | | | | | | [facility];[address] [place] [address] | | | | | | [facility];[place] [address] | | | | + + + + + + + + | Specimen | + + | Blood | + + + + + + + | Performing | Address | City/State/Zipcode | Phone Number | | Organization | | | | + + + + + | [facility] | [address] | [place] [address] | [phone] | + + + + + POC Glucose (07/25/2019 6:09 AM PDT) + + + + + + | Component | Value | Ref Range | Performed | Pathologist | | | | | At | Signature | + + + + + + | Glucose, | 128 (H)Comment: Testing | 65 - 99 mg/dL | [facility] | | | POC | performed at [facility];[address] | | LABORATORY | | | | [address];[place] | | | | | | [address] | | | | + + + + + + + + | Specimen | + + | | + + + + + + + | Performing | Address | City/State/Zipcode | Phone Number | | Organization | | | | + + + + + | [facility] | [address] | [place] [address] | [phone] | + + + + + Renal [...] | >60Comment: GFR <60: | >60 | [facility] | | | GFR | CHRONIC [...] W | | | | | | [facility], | | | | | | [place] [address] | | | | + + + + + + + + | Specimen | + + | Blood | + + + + + + + | Performing | Address | City/State/Zipcode | Phone Number | | Organization | | | | + + + + + | [facility] | [address] | [place] [address] | [phone] | + + + + + Magnesium (07/25/2019 5:49 AM PDT) + + + + + + | Component | Value | Ref Range | Performed | Pathologist | | | | | At | Signature | + + + + + + | Magnesium | 1.9Comment: Testing | 1.7 - 2.4 mg/dL | [facility] | | | | performed at [facility];[address] | | LABORATORY | | | | [address] [facility];[place], [place] | | | | | | [address] | | | | + + + + + + + + | Specimen | + + | Blood | + + + + + + + | Performing | Address | City/State/Zipcode | Phone Number | | Organization | | | | + + + + + | [facility] | [address] | [place] [address] | [phone] | + + + + + CBC [...] | | | Absolute | performed at [facility], [address] | [address] | LABORATORY | | | | [facility], | | | | | | [place] [address] | | | | + + + + + + + + | Specimen | + + | Blood | + + + + + + + | Performing | Address | City/State/Zipcode | Phone Number | | Organization | | | | + + + + + | [facility] | [address] | [place] [address] | [phone] | + + + + + Hemoglobin A1C (07/25/2019 5:49 AM PDT) + + + + + + | Component | Value | Ref Range | Performed | Pathologist | | | | | At | Signature | + + + + + + | Hemoglobin | 8.9 (H)Comment: | 4.8 - 5.6 % | [facility] | | | A1c | Prediabetes: 5.7 [...] | | | | | [address], [facility] | | | | | | [address] | | | | + + + + + + + + | Specimen | + + | Blood | + + + + + + + | Performing | Address | City/State/Zipcode | Phone Number | | Organization | | | | + + + + + | [facility] | [address] | [place] [address] | [phone] | + + + + + ECG [...] | | | | VINCENT GONZALEZ MD ([id number]) on | | | | | | [...] | LABORATORY | | | | [address];[place] | | | | | | [address] | | | | + + + + + + + + | Specimen | + + | | + + + + + + + | Performing | Address | City/State/Zipcode | Phone Number | | Organization | | | | + + + + + | [facility] | [address] | [place] [address] | [phone] | + + + + + POC [...] [place] | | | | | | [address] | | | | + + + + + + + + | Specimen | + + | | + + + + + + + | Performing | Address | City/State/Zipcode | Phone Number | | Organization | | | | + + + + + | [facility] | [address] | [place] [address] | [phone] | + + + + + POC Glucose (07/24/2019 11:19 AM PDT) + + + + + + | Component | Value | Ref Range | Performed | Pathologist | | | | | At | Signature | + + + + + + | Glucose, | 261 (H)Comment: Testing | 65 - 99 mg/dL | [facility] | | | POC | performed at [facility];[address] | | LABORATORY | | | | [address];[place] | | | | | | [address] | | | | + + + + + + + + | Specimen | + + | | + + + + + + + | Performing | Address | City/State/Zipcode | Phone Number | | Organization | | | | + + + + + | [facility] | [address] [facility] | [place] [address] | [phone] | + + + + + POC Glucose (07/24/2019 6:28 AM PDT) + + + + + + | Component | Value | Ref Range | Performed | Pathologist | | | | | At | Signature | + + + + + + | Glucose, | 224 (H)Comment: Testing | 65 - 99 mg/dL | [facility] | | | POC | performed at [facility];[address] | | LABORATORY | | | | [address];[place] | | | | | | [address] | | | | + + + + + + + + | Specimen | + + | | + + + + + + + | Performing | Address | City/State/Zipcode | Phone Number | | Organization | | | | + + + + + | [facility] | [address] | [place] [address] | [phone] | + + + + + Magnesium (07/24/2019 5:40 AM PDT) + + + + + + | Component | Value | Ref Range | Performed | Pathologist | | | | | At | Signature | + + + + + + | Magnesium | 1.8Comment: Testing | 1.7 - 2.4 mg/dL | [facility] | | | | performed at [facility];[address] | | LABORATORY | | | | [address];[place], [place] | | | | | | [address] | | | | + + + + + + + + | Specimen | + + | Blood | + + + + + + + | Performing | Address | City/State/Zipcode | Phone Number | | Organization | | | | + + + + + | [facility] | [address] | [place] [address] | [phone] | + + + + + CBC with Differential (07/24/2019 5:40 AM PDT) + + + + + + | Component | Value | Ref Range | Performed | Pathologist | | | | | At | Signature | + + + + + + | WBC | 11.09 (H) | 3.80 - 11.00 | [facility] [...] | | | Absolute | performed at [facility], [address] | [address] | LABORATORY | | | | [address], | | | | | | [place] [address] | | | | + + + + + + + + | Specimen | + + | Blood | + + + + + + + | Performing | Address | City/State/Zipcode | Phone Number | | Organization | | | | + + + + + | [facility] | [address] | [place] [address] | [phone] | + + + + + Basic [...] | 8.6 | 8.5 - 10.5 | [facility] | | | | | mg/dL | LABORATORY | | + + + + + + | Estimated | >60Comment: GFR <60: | >60 | [facility] | | | GFR | CHRONIC [...] | | | | | [facility], | | | | | | [place] [address] | | | | + + + + + + + + | Specimen | + + | Blood | + + + + + + + | Performing | Address | City/State/Zipcode | Phone Number | | Organization | | | | + + + + + | [facility] | [address] | [place] [address] | [phone] | + + + + + POC [...] | LABORATORY | | | | [address];[place], [place] | | | | | | [address] | | | | + + + + + + + + | Specimen | + + | | + + + + + + + | Performing | Address | City/State/Zipcode | Phone Number | | Organization | | | | + + + + + | [facility] | [address] | [place] [address] | [phone] | + + + + + Legionella, Ag, EIA, Qual, Urine (07/23/2019 11:36 PM PDT) + + + + + + | Component | Value | Ref Range | Performed | Pathologist | | | | | At | Signature | + + + + + + | L. | NegativeComment: | Negative | [facility] | | | pneumophila | Presumptive negative [...] | | | | | performed at [facility], | | | | | | [address], [facility] [address], | | | | | | [facility] [address] | | | | + + + [...] | + + + + + | [facility] | [address] | [place] [address] | [phone] | + + + + + Coronavirus (COVID-19) NAAT (07/23/2019 7:49 PM PDT) + + + + + + | Component | Value | Ref Range | Performed | Pathologist | | | | | At | Signature | + + + + + + | SARS-CoV-2, | NEGATIVEComment: This | NEG | [facility] | | | NAAT | test was [...] performed at [facility] | | | | | | [facility];[place], [place] | | | | | | [address] [...] | + + + + + | [facility] | [address] | [place] [address] | [phone] | + + + + + CT [...] [facility] | | | Requests | [facility];[address] | | LABORATORY | | | | [address];[place] [address] | | | | + + + + + + | RESULT | NO GROWTH 6 DAYS | | [facility] | | | | | | LABORATORY | | + + + + + + | RESULT | Testing performed at | | [facility] | | | | [facility], [address] | | LABORATORY | | | | [place] | | | | | | [address]Cttnxnp: Testing | | | | | | performed at [facility], [address] | | | | | | [address] [place] | | | | | | [address] | | | | + + + + + + + + | Specimen | + + | Blood - Peripheral | | blood specimen | | (specimen) | + + + + + + + | Performing | Address | City/State/Zipcode | Phone Number | | Organization | | | | + + + + + | [facility] | [address] | [place] [address] | [phone] | + + + + + B [...] KR | | | | performed at [facility];[address] | | LABORATORY | | | | [address];[place] | | | | | | [address] | | | | + + + + + + + + | Specimen | + + | | + + + + + + + | Performing | Address | City/State/Zipcode | Phone Number | | Organization | | | | + + + + + | [facility] | [address] | [place] [address] | [phone] | + + + + + Christiano MARTINEZ (07/23/2019 5:49 PM PDT) + + + + + + | Component | Value | Ref Range | Performed | Pathologist | | | | | At | Signature | + + + + + + | INR | 1.0Comment: REFERENCE | | ARPIT | | | | RANGE:0.9 - 1.2 [...] | | | | | | [address];[place], [place] | | | | | | [address] | | | | + + + + + + + + | Specimen | + + | Blood | + + + + + + + | Performing | Address | City/State/Zipcode | Phone Number | | Organization | | | | + + + + + | [facility] | [address] | [place] [address] | [phone] | + + + + + Troponin I (07/23/2019 5:49 PM PDT) + + + + + + | Component | Value | Ref Range | Performed | Pathologist | | | | | At | Signature | + + + + + + | Troponin I | 0.017Comment: 0.04 | 0.00 - 0.04 | [facility] | | | | ng/mL or [...] at | | | | | | [facility];[address];[place] [address] | | | | + + + + + + + + | Specimen | + + | Blood | + + + + + + + | Performing | Address | City/State/Zipcode | Phone Number | | Organization | | | | + + + + + | [facility] | [address] | [place] [address] | [phone] | + + + + + Comprehensive [...] CITY;[address] | | | | | | [facility];[place], [place] | | | | | | [address] | | | | + + + + + + + + | Specimen | + + | Blood | + + + + + + + | Performing | Address | City/State/Zipcode | Phone Number | | Organization | | | | + + + + + | [facility] | [address] | [place] [address] | [phone] | + + + + + CBC [...] K/uL | LABORATORY | | | | [facility];[place], [place] | | | | | | [address] | | | | + + + + + + + + | Specimen | + + | Blood | + + + + + + + | Performing | Address | City/State/Zipcode | Phone Number | | Organization | | | | + + + + + | [facility] | [address] | [place] [address] | [phone] | + + + + + Culture, Blood (07/23/2019 5:48 PM PDT) + + + + + + | Component | Value | Ref Range | Performed | Pathologist | | | | | At | Signature | + + + + + + | Special | RAC | | [facility] | | | Requests | | | LABORATORY | | + + + + + + | Special | Testing performed at | | [facility] | | | Requests | [facility];[address] | | LABORATORY | | | | [address];[place] [address] | | | | + + + + + + | RESULT | NO GROWTH 6 DAYS | | [facility] | | | | | | LABORATORY | | + + + + + + | RESULT | Testing performed at | | [facility] | | | | [facility], [address] [facility] | | LABORATORY | | | | [place], [place] | | | | | | [address]Cazaqyg: Testing | | | | | | performed at [facility], [address] | | | | | | [address] [place], [place], [place] | | | | | | [address] | | | | + + + + + + + + | Specimen | + + | Blood - Swab of line | | insertion site | | (specimen) | + + + + + + + | Performing | Address | City/State/Zipcode | Phone Number | | Organization | | | | + + + + + | [facility] | [address] | [place] [address] | [phone] | + + + + + Culture, [...] RESULT | Testing performed at | | [facility] | | | | [facility], [address] | | LABORATORY | | | | Bl, [place] | | | | | | [address]Wdsyoed: Testing | | | | | | performed at [facility], [address] | | | [address], | | | | | | [place] [address] | | | | + + + [...] [facility] | [address] | [place] [address] | [phone] | + + + + + Urinalysis With Microscopic (07/23/2019 5:23 PM PDT) + + + + + + | Component | Value | Ref Range | Performed | Pathologist | | | | | At | Signature | + + + + + + | Color, UA | YELLOW | | [facility] | | | | | | LABORATORY | | + + + + + + | Clarity, | CLEAR | | [facility] | | | Urine | | | LABORATORY | | + + + + + + | Specific | 1.013 | 1.002 - 1.030 | [facility] | | | [place], | | | LABORATORY | | | [...] | | LABORATORY | | | | [facility];[address] | | | | | | [address];[place] [address] | | | | + + + [...] | + + + + + | [facility] | [address] | [place] [address] | [phone] | + + + + + XR Chest AP Portable (07/23/2019 5:13 PM PDT) + + | Specimen | + + | | + + + + | Addenda | + + | Addendum by Porsche Arrington MD on 07/23/2019 6:54 PM ADDENDUM [...] Negative chest. Signed by: Irina Arrington, Porsche Sign | [facility] | | Date/Time: [...] | | | | | ONLY, -COMPUTER ([id number]), | | | | | | communications editor Mel Veronica | | | | | | ([phone]) on 07/24/2019 | | | | | [...] | | | | | dose on 07/23/19 at 2330 | | | | | [...] | | TIMES DAILY, First dose on Fri | | | [...] | | | | | dose on 07/24/19 at 0145 | | AM PDT | [...] CONTINUOUS PRN, hypoglycemia, | | | Starting 07/24/19 at 0123, | | | Start infusion [...] | | | | | | | 3281-1170 Use NIGHT DOSE for | | | | | | | doses scheduled: HS, | | | | | | | Nighttime 5523-1261 If the BG is | | | [...] | | | SBP > 160, Starting Mon07/24/19 | | | at 0124 | | [...] magnesium oxide (MAG-OX) tablet | Given | 07/25/19 | 400 mg | | | | [...] | | | | | | | [facility] 07/25/19 at 2100, Tablet may | | [...] 6:59 | | | | | ONCE, 07/24/19 at 1815, For 1 | | PM [...]
--- OUTSIDE RECORDS SUMMARY | ~2019-10-12 | XMS | Encounter Summary ---
Demographics + + + | Address | [address] | | | [place] [address] | + + + | Home Phone [...] + | Sammi Kohler | ECON | [place] [address] | | + + + + + Care Team Providers + +------+ + | Care Cnc Applications Engineer Name | Role | Phone | + +------+ + | Mireya Pack NP | PCP | | + +------+ + Reason for Visit +--------+--------+ + | Reason | Onset | Comments | | | Date | | +--------+--------+ + | Other | 02/22/ | [facility] Physician Info Request | | | 2020 | | +--------+--------+ + Encounter Details +--------+ + + + + | Date | Type | Department | Care Team | Description | +--------+ + + + + | 02/22/ | Telephone | SAMY [place] | Myriam Gary, | Other ([facility] | | 2020 | | [facility] [address] | Classified Ad Clerk | Physician Info | | | | [address] | | Request ) | | | | [place] | | | | | | [address] | | | | | | [phone] | | | +--------+ + + + [...] Miscellaneous Notes Telephone Encounter - Myriam Gary Classified Ad Clerk - 02/22/2019 2:59 PM PSTSee scan for [...] [place]WS, | | | | | | [place] [address] | | | | | | [phone] | | | | | | | | +--------+ + + + + documented as of this encounter Visit Diagnoses Not on filedocumented in this encounter"
--- OUTSIDE RECORDS SUMMARY | ~2019-10-12 | XMS | Encounter Summary ---
Demographics + + + | Address | [address] | | | [place] [address] | + + + | Home Phone [...] | Sammi Kohler | ECON | [place] [address] | | + + + + + Care Team Providers + +------+ + | Care Clinic Supervisor Name | Role | Phone | + +------+ + PCP | Unavailable | + +------+ + Encounter Details +--------+ + + + + | Date | Type | Department | Care Team | Description | +--------+ + + + + | 02/07/ | Emergency | [facility] | Yaakov Bridges DO | Hyperglycemia due to | | 2016 | | [facility] | [address] | type 2 diabetes | | | | EM[facility]Y [facility]ENTER | [address], | mellitus (HCC) | | | | [address] | [place] [address] | | | | | [place], [place] | [phone] | | | | | [address] | | | | | | [phone] | | | +--------+ + + + [...] Filed: 02/08/15 0747 Date of Service: 02/07/15 2581 Status: Signed Training Facilitator: Yaakov Bridges DO (Physician) [facility] Department of Emergency Medicine Provider 02/07/15 0623 Pre-arrival Provider Pre-arrival Provider [facility]gent [facility] Provider Name MOY CruzLeisa Pertinent History and [...] taking 3 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 Patient also complains of dizziness and nausea. [...] (HCC) 03/02/2013 COPD (chronic obstructive pulmonary disease) ([facility]) 03/02/2013 hypoxemia on 2 lts nc Development [...] - CHOLECYSTECTOMY; Surgeon: Jevon Vargas DO; Location: [facility] OR; Service: General; Laterality: N/A; Abdominal surgery Cholecystectomy Skin cancer excision 10/10/2012 Procedure: EXCISION - SKIN CANCER; Surgeon: Sy Fierro MD; Location: [facility] ; Service: Plastics; Laterality: Left; upper arm and upper back w/frozen section Esophagogastroduodenoscopy 03/03/2013 Procedure: ESOPHAGOGASTRODUODENOSCOPY; Surgeon: Howie Gibson MD; Location: [facility] ENDOS[facility]; S ervice: Gastroenterology; Laterality: N/A; Colonoscopy 03/04/2013 Procedure: COLONOSCOPY; Surgeon: Howie Gibson MD; Location: [facility] ENDOSCOPY; Service: Gastroe nterology; Laterality: N/A; Upper gastrointestinal endoscopy Skin biopsy Hernia repair 07/03/2013 Procedure: LAPAROSCOPIC - HERNIA - INCISIONAL; Surgeon: Jevon Vargas DO; Location: [facility] OR; Service: General; Laterality: N/A; Skin lesion excision Left 05/05/2014 Procedure: EXCISION - LESION - FROZEN SECTION; Surgeon: Sy Fierro MD; Location: [facility] OR; Service: Plastics; Laterality: Left; forearm Prior to Admission medications Medication Sig Start Date End Date Taking? Authorizing Provider Albuterol Sulfate (VENTOLIN HFA IN) Inhale 2 puffs into the lungs as needed. 108 mcg/act Yes Historical Provider Lkjyk-C-Juixxaksuorbf (BEANO) TABS Take 150 Units by mouth [...] by mouth nightly. Yes Historical Provide r wjzxnccmu-bqpxnqgl-unoksxzzf hydroxide-simethicone Take 40 mLs by mouth daily [...] 01/25/15. The pt is part of the [facility] care program , which states the [...] Component Value Ref Range Date/Time POCT glucose [[id number]] Order Status: Sent Urinalysis (reflex to microscopic/reflex to culture) [[id number]] (Abnormal) Collected: 02/07/15 1544 Order Status: Completed Specimen Information: Urine, Clean Catch Updated: 02/07/15 16 07 COLOR UA STRAW CLARITY CLEAR Specific [place], UA 1.017 1.002 - 1.030 LEUKOCYTE ESTERASE [...] Mucus, UA 1+ CBC w Auto Diff [[id number]] (Abnormal) Collected: 02/07/15 1444 Order Status: Completed [...] AGREES WITH AUTOMATED RESULTS. Complete Metabolic Panel [[id number]] (Abnormal) Collected: 02/07/15 1444 Order Status: Completed [...] U/L EGFR 51 (L) >60 mL/min/1.73m2 Protime-INR [[id number]] Collected: 02/07/15 1444 Order Status: Completed Specimen [...] treatment [address] [facility] [address] [facility] Emergency Department As needed, If symptoms worsen [address] [facility] [address] Discharge Medications: New Prescriptions No new medications This document has been prepared with a voice recognition system. The possibility of "sound alike" leach runner errors, addition and/or deletions may occur. If [...] | | | | | | [place] [address] | | | | | | [phone] | | | | | | | [...] | | | [address] [facility];[place], [place] | | | | | | [address] | | | | + + + [...] [place] | | | | | | [address] | | | | + + + + + + | Clarity, | CLEARComment: Testing | | EXTERNAL | | | Urine | performed at [facility];[address] | | LAB | | | [address];[place] | | | | | | [address] | | | | + + + + + + | Specific | 1.017Comment: Testing | 1.002 - 1.030 | EXTERNAL | | | [place], | performed at [facility];[address] | | LAB | | | Urine | [address];[place] | | | | | | [address] | | | | + + + + + + | Leukocyte | NEGATIVEComment: Testing | | EXTERNAL | | | Esterase, | performed at [facility];[address] | | LAB | | | Urine | [address];[place] | | | | | | [address] | | | | + + + + + + | Nitrite, | NEGATIVEComment: Testing | | EXTERNAL | | | Urine | performed at [facility];[address] | | LAB | | | | [address];[place] | | | | | | [address] | | | | + + + + + + | Urobilinoge | NORMALComment: Testing | mg/dL | EXTERNAL | | | n, Urine | performed at [facility];[address] | | LAB | | | [address];[place] | | | | | | [address] | | | | + + + + + + | Protein, | NEGATIVEComment: Testing | mg/dL | EXTERNAL | | | Urine | performed at [facility];[address] | | LAB | | | | [address];[place] | | | | | | [address] | | | | + + + + + + | pH, Urine | 6.0Comment: Testing | 5.0 - 8.0 | EXTERNAL | | | | performed at [facility];[address] | | LAB | | | [address];[place] | | | | | | [address] | | | | + + + + + + | Blood, | NEGATIVEComment: Testing | | EXTERNAL | | | Urine | performed at [facility];[address] | | LAB | | | [address];[place] | | | | | | [address] | | | | + + + + + + | Ketones | NEGATIVEComment: Testing | mg/dL | EXTERNAL | | | | performed at [facility];[address] | | LAB | | | [address];[place] | | | | | | [address] | | | | + + + + + + | Bilirubin, | NEGATIVEComment: Testing | | EXTERNAL | | | Urine | performed at [facility];[address] | | LAB | | | [address];[place] | | | | | | [address] | | | | + + + + + + | Glucose, | >500 (A)Comment: Testing | mg/dL | EXTERNAL | | | Urine | performed at [facility];[address] | | LAB | | | [address];[place] | | | | | | [address] | | | | + + + + + + | WBC, UA | 0-2Comment: Testing | 0 - 5 /hpf | EXTERNAL | | | | performed at [facility];[address] | | LAB | | | [address];[place] | | | | | | [address] | | | | + + + + + + | RBC, UA | 0-2Comment: Testing | 0 - 2 /hpf | EXTERNAL | | | | performed at [facility];[address] | | LAB | | | [address];[place] | | | | | | [address] | | | | + + + + + + | Bacteria, | NONE SEENComment: | | EXTERNAL | | | UA | Testing performed at | | LAB | | | | [facility];[address];[place] [address] | | | | + + + + + + | Epithelial | NONE SEENComment: | /lpf | EXTERNAL | | | Cells | Testing performed at | | LAB | | | | [facility];[address];[place] [address] | | | | + + + + + + | Mucus, | 1+Comment: Testing | | EXTERNAL | | | Urine | performed at [facility];[address] | | LAB | | | [address];[place] | | | | | | [address] | | | | + + + + + + + + | Specimen | + + | | + + + +---------+ + + | Performing | Address | City/State/Zipcode | Phone Number | | Organization | | | | + +---------+ + + | EXTERNAL LAB | | | | + +---------+ + + Protime INR (02/07/2015 2:44 PM PST) + + + [...] | | | | | | [address];[place], [place] | | | | | | [address] | | | | + + + [...] + +---------+ + + External Lab: EVE (02/07/2015 2:44 PM PST) + + + + + + | Component | Value | Ref Range | Performed | Pathologist | | | | | At | Signature | + + + + + + | WBC | 12.86 (H)Comment: | 3.80 - 11.00 | EXTERNAL | | | | Testing performed at | K/uL | LAB | | | | [facility];[address];[place] [address] | | | | + + + + + + | Non- | 5.79 (H)Comment: Testing | 4.20 - 5.70 | EXTERNAL | | | Red Blood | performed at [facility];[address] | M/uL | LAB | | | Cells | [address];[place] | | | | | Counted | [address] | | | | + + + + + + | Hemoglobin | 13.6Comment: Testing | 13.2 - 17.0 | EXTERNAL | | | | performed at [facility];[address] | g/dL | LAB | | | | [address];[place] | | | | | | [address] | | | | + + + + + + | Hematocrit, | 43.8Comment: Testing | 39.0 - 50.0 % | EXTERNAL | | | POC | performed at [facility];[address] | | LAB | | | [address];[place] | | | | | | [address] | | | | + + + + + + | MCV | 75.7 (L)Comment: Testing | 80.0 - 100.0 fl | EXTERNAL | | | | performed at [facility];[address] | | LAB | | | [address];[place] | | | | | | [address] | | | | + + + + + + | MCH | 23.5 (L)Comment: Testing | 27.0 - 34.0 pg | EXTERNAL | | | | performed at [facility];[address] | | LAB | | | | [address];[place] | | | | | | [address] | | | | + + + + + + | MCHC | 31.1 (L)Comment: Testing | 32.0 - 35.5 | EXTERNAL | | | | performed at [facility];[address] | g/dL | LAB | | | | [place] | | | | | | [address] | | | | + + + + + + | RDW-CV | 45.1Comment: Testing | 37 - 53 fl | EXTERNAL | | | | performed at [facility];[address] | | LAB | | | [address];[place] | | | | | | [address] | | | | + + + + + + | Platelet | 292Comment: Testing | 150 - 400 K/uL | EXTERNAL | | | Count | performed at [facility];[address] | | LAB | | | Plasma | [address];[place] | | | | | | [address] | | | | + + + + + + | MPV | 8.1Comment: Testing | fl | EXTERNAL | | | | performed at [facility];[address] | | LAB | | | | [address];[place] | | | | | | [address] | | | | + + + + + + | Differentia | AUTOMATEDComment: | | EXTERNAL | | | l Type | Testing performed at | | LAB | | | | [facility];[address] | | | | | [address];[place] [address] | | | | + + + + + + | % Segmented | 78.49Comment: Testing | % | EXTERNAL | | | | performed at [facility];[address] | | LAB | | | Neutrophils | [address];[place] | | | | | | [address] | | | | + + + + + + | % | 14.20Comment: Testing | % | EXTERNAL | | | Lymphocytes | performed at [facility];[address] | | LAB | | | | [address];[place] | | | | | | [address] | | | | + + + + + + | % Monocytes | 6.64Comment: Testing | % | EXTERNAL | | | | performed at [facility];[address] | | LAB | | | | [place] | | | | | | [address] | | | | + + + + + + | % | 0.19Comment: Testing | % | EXTERNAL | | | Eosinophils | performed at [facility];[address] | | LAB | | | | [address];[place] | | | | | | [address] | | | | + + + + + + | % Basophils | 0.48Comment: Testing | % | EXTERNAL | | | | performed at [facility];[address] | | LAB | | | | [address];[place] | | | | | | [address] | | | | + + + + + + | Absolute | 10.10 (H)Comment: | 1.90 - 7.40 | EXTERNAL | | | Segmented | Testing performed at | K/uL | LAB | | | Neutrophils | [facility];[address];[place] [address] | | | | + + + + + + | Absolute | 1.83Comment: Testing | 1.00 - 3.90 | EXTERNAL | | | Lymphocytes | performed at [facility];[address] | K/uL | LAB | | | | [address];[place] | | | | | | [address] | | | | + + + + + + | Absolute | 0.85 (H)Comment: Testing | 0.00 - 0.80 | EXTERNAL | | | Monocytes | performed at [facility];[address] | K/uL | LAB | | | | [address];[place] | | | | | | [address] | | | | + + + + + + | Absolute | 0.03Comment: Testing | 0.00 - 0.50 | EXTERNAL | | | Eosinophils | performed at [facility];[address] | K/uL | LAB | | | | [address] [address];[place] | | | | | | [address] | | | | + + + + + + | Absolute | 0.06Comment: Testing | 0.00 - 0.10 | EXTERNAL | | | Basophils | performed at [facility];[address] | K/uL | LAB | | | | [address] [address];[place] | | | | | | [address] | | | | + + + + + + | RBC | 1+Comment: | | EXTERNAL | | | Morphology | ANISO1+MICRO1+HYPO1+OVAL | | LAB | | | | OTesting performed at | | | | | | [facility];[address];[place] [address] | | | | | |1+ | | | | | |HYPO | | | | | |1+ | | | | | |OVALO | | | | | |Testing performed at [facility];[address];[place] [address] | | | | | | | | | | + + + + + + | Platelet | ADEQUATEComment: Testing | | EXTERNAL | | | Estimate | performed at [facility];[address] | | LAB | | | | [address];[place] | | | | | | [address] | | | | + + + [...] [place] | | | | | | [address] | | | | + + + [...] [place] | | | | | | [address] | | | | + + + + + + | K | 3.6Comment: Testing | 3.5 - 4.9 | EXTERNAL | | | | performed at [facility];[address] | mmol/L | LAB | | | | [address];[place] | | | | | | [address] | | | | + + + + + + | Cl | 96 (L)Comment: Testing | 99 - 109 mmol/L | EXTERNAL | | | | performed at [facility];[address] | | LAB | | | | [address];[place] | | | | | | [address] | | | | + + + + + + | CO2 | 25Comment: Testing | 23 - 32 mmol/L | EXTERNAL | | | | performed at [facility];[address] | | LAB | | | | [address];[place] | | | | | | [address] | | | | + + + + + + | Anion Gap | 16Comment: Testing | 5 - 20 mmol/L | EXTERNAL | | | | performed at [facility];[address] | | LAB | | | | [address];[place] | | | | | | [address] | | | | + + + + + + | Glucose, | 402 (H)Comment: Testing | 65 - 99 mg/dL | EXTERNAL | | | Fasting | performed at [facility];[address] | | LAB | | | [address];[place] | | | | | | [address] | | | | + + + + + + | BUN | 11Comment: Testing | 8 - 25 mg/dL | EXTERNAL | | | | performed at [facility];[address] | | LAB | | | | [address];[place] | | | | | | [address] | | | | + + + + + + | Creatinine | 1.5 (H)Comment: Testing | 0.70 - 1.30 | EXTERNAL | | | | performed at [facility];[address] | mg/dL | LAB | | | | [address];[place] | | | | | | [address] | | | | + + + + + + | BUN/Creatin | 7Comment: Testing | | EXTERNAL | | | ine Ratio | performed at [facility];[address] | | LAB | | | [address];[place] | | | | | | [address] | | | | + + + + + + | Calcium | 8.7Comment: Testing | 8.5 - 10.5 | EXTERNAL | | | | performed at [facility];[address] | mg/dL | LAB | | | | [address];[place] | | | | | | [address] | | | | + + + + + + | Protein, | 8.1Comment: Testing | 6.3 - 8.2 g/dL | EXTERNAL | | | Total | performed at [facility];[address] | | LAB | | | | [address];[place] | | | | | | [address] | | | | + + + + + + | Albumin | 3.6Comment: Testing | 3.3 - 4.8 g/dL | EXTERNAL | | | | performed at [facility];[address] | | LAB | | | | [address];[place] | | | | | | [address] | | | | + + + + + + | Globulin | 4.5Comment: Testing | 1.3 - 4.9 g/dL | EXTERNAL | | | | performed at [facility];[address] | | LAB | | | | [address];[place] | | | | | | [id number] | | | | + + + + + + | A/G Ratio | 0.8 (L)Comment: Testing | 1.0 - 2.4 | EXTERNAL | | | | performed at [facility];[address] | | LAB | | | | [address];[place] | | | | | | [address] | | | | + + + + + + | Bilirubin | 0.3Comment: Testing | 0.1 - 1.5 mg/dL | EXTERNAL | | | Total | performed at [facility];[address] | | LAB | | | | [address];[place] | | | | | | [address] | | | | + + + + + + | ALP, | 164 (H)Comment: Testing | 35 - 115 U/L | EXTERNAL | | | External | performed at [facility];[address] | | LAB | | | | [address];[place] | | | | | | [address] | | | | + + + + + + | AST | 19Comment: Testing | 10 - 45 U/L | EXTERNAL | | | | performed at [facility];[address] | | LAB | | | | [address];[place] | | | | | | [address] | | | | + + + + + + | ALT | 27Comment: Testing | 10 - 65 U/L | EXTERNAL | | | | performed at [facility];[address] | | LAB | | | | [address];[place] | | | | | | [address] | | | | + + + [...] | | | | | [address];[place] [address] | | | | + + + [...] | LAB | | | | [address];[place], [place] | | | | | | [address] | | | | + + + [...]
--- OUTSIDE RECORDS SUMMARY | ~2019-10-12 | XMS | Encounter Summary ---
Demographics + + + | Address | [address] | | | [place] [address] | + + + | Home Phone [...] + | Sammi Kohelr | ECON | [place] [address] | | + + + + + Care Team Providers + +------+ + | Care Board Setter Name | Role | Phone | + +------+ + | Mireya Pack NP | PCP | | + +------+ + Encounter Details +--------+---------+ + + + | Date | Type | Department | Care Team | Description | +--------+---------+ + + + | 08/20/ | Office | [facility] | Mireya Pack, | Chronic a-fib (HCC) | | 2020 | Visit | [facility] | TYPEWRITER TESTER [address] | (Primary Dx); | | | | [address] | [address] [place], | Essential | | | | [place], [place] | [place] [address] | hypertension; | | | | [address] | [phone] | Chronic obstructive | | | | [phone] | | pulmonary disease, | | | [...] through the use of telemedicine. Telemedicine enables [facility] care providers at different locations to [...] Anxiety ARF (acute renal failure) ([facility]) 03/02/2013 Atrial fibrillation (HCC) Basal cell carcinoma 09/26/2012 arm and back COPD (chronic obstructive pulmonary disease) ([facility]) 03/02/2013 hypoxemia on 2 lts nc Depression Development delay Diabetes mellitus type II DVT (deep venous thrombosis) ([facility]) 03/29/2018 Facial droop 07/08/2013 GIB [...] INCISIONAL; Surgeon: Jevon Vargas DO; Location: [facility] MAIN OR; Service: General; [...] Lives alone x 1 wk, [facility], , 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 2 falls [...] 3 Insulin Pen Needle (BD PEN NEEDLE KAYW U/F) 32G X 4 MM MISC For [...] 8.9 (H) 07/25/2019 No components found for: [id number], PTHINT No results found for: [id number] Lab Results Component Value Date TSH 2.780 [...] | | | | | [address], | | | | | | [place] [address] | | | | | | [phone] | | | | | | | [...]
--- OUTSIDE RECORDS SUMMARY | ~2019-10-12 | XMS | Encounter Summary ---
Demographics + + + | Address | [address] | | | [place] [address] | + + + | Home Phone [...] + | Sammi Kohler | ECON | [place] [address] | | + + + + + Care Team Providers + +------+ + | Care Cartoon Designer Name | Role | Phone | + +------+ + PCP | Unavailable | + +------+ + Encounter Details +--------+ + + + + | Date | Type | Department | Care Team | Description | +--------+ + + + + | 07/29/ | Emergency | [facility] | Kristian Mae | Micturition syncope; | | 2015 | | [facility] | [address] | Fall, initial | | | | [facility] | [place], | encounter; Scalp | | | | [address] | [place] [address] | contusion, initial | | | | [place], [place] | [phone] | encounter | | | | [address] | | | | | | [phone] | | | +--------+ + + + [...] Author: Jaye Meraz Service: (none) Author Type: Highway Maintainer Filed: 07/29/14733 Date of Service: 07/29/14733 Status: Signed Orthopedic Brace Maker: Jaye Meraz (Highway Maintainer) [facility] contacted [facility] between 0745 and 0800 . Jaye Meraz 07/29/14 0734 Ema Tamayo RN - 07/29/2014 7:23 AM PDTFormatting of this note might be different from th e original. ED Notes by Hue Cruz RN at 07/29/14722 Author: Hue Cruz RN Service: (none) Author Type: Registered Nurse Filed: 07/29/14723 Date of Service: 07/29/14722 Status: Signed Orthopedic Brace Maker: Hue Cruz RN (Registered Nurse) Walked in [...] 1242 Date of Service: 07/29/14553 Status: Signed Orthopedic Brace Maker: Kristian Mae MD (Physician) [facility] Department of Emergency Medicine 5:54 AM History [...] this time. 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 108 mcg/act Historical Provider Lazal-L-Fzyfmorenqktt (BEANO) TABS Take 150 Units by mouth [...] 100 mg by mouth nightly. Historical Provider ewtkblwpd-sbqaqvog-kwbjcixsf hydroxide-simethicone Take 40 mLs by mouth daily [...] once a week for prophylaxis. 06/26/14 06/26/15 Jessica Clarke, DCNP tamsulosin (FLOMAX) 0.4 MG capsule Take 0.4 [...] sore throat CV/Resp: Negative for chest pain, cchjmzlmw-zt-hmgpyj, cough GI: Positive for abd pain "cramping" [...] Component Value Ref Range Date/Time Cardiac Panel [[id number]] (Abnormal) Collected: 07/29/14 050 Order Status: Completed Updated: 07/29/14533 WBC 11.22 [...] ng/mL CK-MB Index 2.6 POC cardiac troponin [[id number]] Collected: 07/29/14 0507 Order Status: Completed Updated: [...] 29 2014 6:44AM Referring Provider Line: [phone] ID: [id number] Narrative: EXAM: CT HEAD EXAM [...] EKG 0348 Nl sinus 78 Intervals nl [place] nl ST nl T waves diffuse flattening in the bipolar leads No ischemia No obvious signs of [place] July 24, 2014 no significant changes at this point in time ED Diagnoses Final diagnoses Micturition syncope Fall, initial encounter Scalp contusion, initial encounter Disposition: ED Disposition Discharge Condition at discharge: Stable Follow-up Information Follow up With Details Comments Contact Info Jerrell Ginny Bermeosidney, DO As needed [address] [place] [address] [facility] [address] [facility] Emergency Department If symptoms worsen [address] [facility] [address] Discharge Medications: Discharge Medication List as of [...] 07/29/14320 Date of Service: 07/29/14320 Status: Signed Orthopedic Brace Maker: Mayra Xie RN (Registered Nurse) Bed: 17 [...] | | | | | | [place] [address] | | | | | | [phone] | | | | | | | [...] 6:44AM | | | Referring Provider Line: [phone] ID: [id number] | | + + + [...] Jul 29 2014 6:44AM Referring Provider Line: [phone] ID: [id number] | |FINDINGS: | |Parenchyma: Mild [...] 29 2014 6:44AM Referring Provider Line: [phone] ID: [id number] | + + HISTORICAL LAB [...] K/uL | LAB | | | | [facility] | | | | | | [address];[place] [address] | | | | + + + + + -+ | Non- | 4.67Comment: Testing | 4.20 - 5.70 | EXTERNAL | | | Red Blood | performed at [facility];[address] | M/uL | LAB | | | Cells | [address];[place] | | | | | Counted | [address] | | | | + + + + + -+ | Hemoglobin | 11.9 (L)Comment: Testing | 13.2 - 17.0 | EXTERNAL | | | | performed at [facility];888 | g/dL | LAB | | | | [address];[place] | | | | | | [address] | | | | + + + + + -+ | Hematocrit, | 36.2 (L)Comment: Testing | 39.0 - 50.0 % | EXTERNAL | | | POC | performed at [facility];[address] | | LAB | | | | [address];[place] | | | | | | [address] | | | | + + + + + -+ | MCV | 77.6 (L)Comment: Testing | 80.0 - 100.0 fl | EXTERNAL | | | | performed at [facility];[address] | | LAB | | | | [address];[place] | | | | | | [address] | | | | + + + + + -+ | MCH | 25.4 (L)Comment: Testing | 27.0 - 34.0 pg | EXTERNAL | | | | performed at [facility];888 | | LAB | | | | [address];[place] | | | | | | [address] | | | | + + + + + -+ | MCHC | 32.7Comment: Testing | 32.0 - 35.5 | EXTERNAL | | | | performed at [facility];888 | g/dL | LAB | | | | [address];[place] | | | | | | [address] | | | | + + + + + -+ | RDW-CV | 47.3Comment: Testing | 37 - 53 fl | EXTERNAL | | | | performed at [facility];[address] | | LAB | | | | [address];[place] | | | | | | [address] | | | | + + + + + -+ | Platelet | 308Comment: Testing | 150 - 400 K/uL | EXTERNAL | | | Count | performed at [facility];888 | | LAB | | | Plasma | [address];[place] | | | | | | [address] | | | | + + + + + -+ | MPV | 7.5Comment: Testing | fl | EXTERNAL | | | | performed at [facility];[address] | | LAB | | | | [address];[place] | | | | | | [address] | | | | + + + + + -+ | Differentia | AUTOMATEDComment: | | EXTERNAL | | | l Type | Testing performed at | | LAB | | | | [facility];[address];[place] [address] | | | | + + + + + -+ | % Segmented | 65.34Comment: Testing | % | EXTERNAL | | | | performed at [facility];[address] | | LAB | | | Neutrophils | [address];[place] | | | | | | [address] | | | | + + + + + -+ | % | 22.89Comment: Testing | % | EXTERNAL | | | Lymphocytes | performed at [facility];[address] | | LAB | | | | [address];[place] | | | | | | [address] | | | | + + + + + -+ | % Monocytes | 8.53Comment: Testing | % | EXTERNAL | | | | performed at [facility];[address] | | LAB | | | | [address] | | | | | | [address] | | | | + + + + + -+ | % | 2.46Comment: Testing | % | EXTERNAL | | | Eosinophils | performed at [facility];[address] | | LAB | | | | [address];[place] | | | | | | [address] | | | | + + + + + -+ | % Basophils | 0.78Comment: Testing | % | EXTERNAL | | | | performed at [facility];[address] | | LAB | | | | [address];[place] | | | | | | [address] | | | | + + + + + -+ | Absolute | 7.33Comment: Testing | 1.90 - 7.40 | EXTERNAL | | | Segmented | performed at [facility];[address] | K/uL | LAB | | | Neutrophils | [address];[place] | | | | | | [address] | | | | + + + + + -+ | Absolute | 2.57Comment: Testing | 1.00 - 3.90 | EXTERNAL | | | Lymphocytes | performed at [facility];888 | K/uL | LAB | | | | [address];[place] | | | | | | [address] | | | | + + + + + -+ | Absolute | 0.96 (H)Comment: Testing | 0.00 - 0.80 | EXTERNAL | | | Monocytes | performed at [facility];888 | K/uL | LAB | | | | [address] | | | | | | [address] | | | | + + + + + -+ | Absolute | 0.28Comment: Testing | 0.00 - 0.50 | EXTERNAL | | | Eosinophils | performed at [facility];[address] | K/uL | LAB | | | | [address] | | | | | | [address] | | | | + + + + + -+ | Absolute | 0.09Comment: Testing | 0.00 - 0.10 | EXTERNAL | | | Basophils | performed at [facility];[address] | K/uL | LAB | | | | [address] | | | | | | [address] | | | | + + + + + -+ | Na | 142Comment: Testing | 135 - 143 | EXTERNAL | | | | performed at [facility];888 | mmol/L | LAB | | | | [address];[place] | | | | | | [address] | | | | + + + + + -+ | K | 3.7Comment: Testing | 3.5 - 4.9 | EXTERNAL | | | | performed at [facility];888 | mmol/L | LAB | | | | [address] | | | | | | [address] | | | | + + + + + -+ | Cl | 108Comment: Testing | 99 - 109 mmol/L | EXTERNAL | | | | performed at [facility];[address] | | LAB | | | | [address] | | | | | | [address] | | | | + + + + + -+ | CO2 | 26Comment: Testing | 23 - 32 mmol/L | EXTERNAL | | | | performed at [facility];[address] | | LAB | | | | [address] | | | | | | [address] | | | | + + + + + -+ | Anion Gap | 12Comment: Testing | 5 - 20 mmol/L | EXTERNAL | | | | performed at [facility];[address] | | LAB | | | | [address] | | | | | | [address] | | | | + + + + + -+ | Glucose, | 179 (H)Comment: Testing | 65 - 99 mg/dL | EXTERNAL | | | Fasting | performed at [facility];[address] | | LAB | | | | [address] | | | | | | [address] | | | | + + + + + -+ | BUN | 21Comment: Testing | 8 - 25 mg/dL | EXTERNAL | | | | performed at [facility];[address] | | LAB | | | | [address] | | | | | | [address] | | | | + + + + + -+ | Creatinine | 0.95Comment: Testing | 0.70 - 1.30 | EXTERNAL | | | | performed at [facility];888 | mg/dL | LAB | | | | [address] | | | | | | [address] | | | | + + + + + -+ | BUN/Creatin | 23Comment: Testing | | EXTERNAL | | | ine Ratio | performed at [facility];[address] | | LAB | | | | [address] | | | | | | [address] | | | | + + + + + -+ | Calcium | 8.2 (L)Comment: Testing | 8.5 - 10.5 | EXTERNAL | | | | performed at [facility];[address] | mg/dL | LAB | | | | [address] | | | | | | [address] | | | | + + + + + -+ | Protein, | 6.5Comment: Testing | 6.3 - 8.2 g/dL | EXTERNAL | | | Total | performed at [facility];[address] | | LAB | | | | [address] | | | | | | [address] | | | | + + + + + -+ | Albumin | 3.0 (L)Comment: Testing | 3.6 - 5.0 g/dL | EXTERNAL | | | | performed at [facility];[address] | | LAB | | | | [address] | | | | | | [address] | | | | + + + + + -+ | Globulin | 3.5Comment: Testing | 1.3 - 4.9 g/dL | EXTERNAL | | | | performed at [facility];[address] | | LAB | | | | [address] | | | | | | [address] | | | | + + + + + -+ | A/G Ratio | 0.9 (L)Comment: Testing | 1.0 - 2.4 | EXTERNAL | | | | performed at [facility];[address] | | LAB | | | | [address] | | | | | | [address] | | | | + + + + + -+ | Bilirubin | 0.2Comment: Testing | 0.1 - 1.5 mg/dL | EXTERNAL | | | Total | performed at [facility];[address] | | LAB | | | | [address] | | | | | | [address] | | | | + + + + + -+ | ALP, | 80Comment: Testing | 35 - 115 U/L | EXTERNAL | | | External | performed at [facility];[address] | | LAB | | | | [address] | | | | | | [address] | | | | + + + + + -+ | AST | 15Comment: Testing | 10 - 45 U/L | EXTERNAL | | | | performed at [facility];[address] | | LAB | | | | [address] | | | | | | [address] | | | | + + + + + -+ | ALT | 19Comment: Testing | 10 - 65 U/L | EXTERNAL | | | | performed at [facility];[address] | | LAB | | | | [address] | | | | | | [address] [...] | | | | | | at [facility];[address];[place] [address] | | | | + + + + + -+ | CK, Total | 97Comment: Testing | 55 - 400 U/L | EXTERNAL | | | | performed at [facility];[address] | | LAB | | | | [address] | | | | | | [address] | | | | + + + [...] [facility];[address] | | | | | | [address];[place] | | | | | | [address] | | | | + + + + + -+ | aPTT, | 33 (H)Comment: Testing | 23 - 32 seconds | EXTERNAL | | | Patient | performed at [facility];[address] | | LAB | | | | [address] | | | | | | [address] | | | | + + + + + -+ | CK-MB | 2.5Comment: Testing | 0.5 - 3.6 ng/mL | EXTERNAL | | | | performed at [facility];[address] | | LAB | | | | [address] | | | | | | [address] | | | | + + + [...] | | | 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
--- OUTSIDE RECORDS SUMMARY | ~2019-10-12 | XMS | Encounter Summary ---
Demographics + + + | Address | [address] | | | [place] [address] | + + + | Home Phone [...] + | Sammi Kohler | ECON | [place] [address] | | + + + + + [...] + + | 09/09/ | Telephone | [facility] | Stephy Allen RN | | | 2019 | | [place] | | | | | | [facility] | | | | | | [facility] [place] | | | | | | [address] | | | | | | [place], [place] | | | | | | [address] | | | | | | [phone] | | | +--------+ + + + [...] this encounter Miscellaneous Notes Telephone Encounter - Stephy Allen RN - 09/10/2019 11:13 AM PDTPt no showed his appt. L/M tracker out 2 weeks. docuharmeet ented in this encounter Plan of Treatment [...] | | | | | | [place] [address] | | | | | | [phone] | | | | | | | | +--------+ + + + + documented as of this encounter Visit Diagnoses Not on filedocumented in this encounter"
--- OUTSIDE RECORDS SUMMARY | 2019-10-12 17:32 | XMS ---
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 Guidelines Date: 09/10/2019 Care Coordination: - PATIENT HAS BEEN TO MULTIPLE FACILITIES- REQUESTING A RIDE TO AND FROM [place] TO [facility]. - PATIENT HAS AN EXTENSIVE HISTORY OF OVER UTILIZING AMBULANCE SERVICES. - PATIENT HAS BEEN CONTACTED BY CASE MANAGEMENT SERVICES - DISCUSSED MULTIPLE CONCERNS WITH NOT FOLLOWING UP WITH PCP AND COMPLIANCE OF ONGOING MEDICATIONS- ALONG WITH EXTENSIVE HISTORY OF ER VISITS TO HAVE RIDES PROVIDED TO ALTERNATIVE LOCATIONS. - DO NOT PROVIDE PATIENT TRANSPORTATION - UNLESS MEDICALLY NECESSARY Additional care guidelines exist for the following facilities: [facility] ( 11/24/2018 ) [place] VISIT COUNT (12 MO.) 1 [facility] 20 [facility] 2 [facility] 1 [facility] 3 [facility] TOTAL 27 NOTE: Visits indicate total known visits. ED/UCC VISIT TRACKING (12 MO.) 10/12/2019 17:29 [facility] [place] TYPE: Emergency 09/12/2019 14:49 [facility] TYPE: Emergency DIAGNOSES: - Chest Pain - Chest pain, unspecified 09/10/2019 10:31 [facility] [place] TYPE: Emergency DIAGNOSES: - CHEST PRESSURE - Other chest pain 09/09/2019 22:28 [facility] [place] TYPE: Emergency COMPLAINT: - WEAKNESS DIAGNOSES: - Type 2 diabetes mellitus without complications - Hypertensive heart disease with heart failure - Unspecified atrial fibrillation - Chronic atrial fibrillation, unspecified - Weakness - USP (current) use of insulin - Other terminal block assembler (current) drug therapy - Allergy status to other drugs, medicaments and biological sub - USP (current) use of 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 - Heart failure, unspecified 09/07/2019 06:33 [facility] TYPE: Emergency DIAGNOSES: - Type 2 diabetes mellitus with hyperglycemia - Chest Pain - continuous churn buttermaker (current) use of insulin - Urinary Frequency - Other chest pain - Frequency of micturition 08/06/2019 03:27 [facility] TYPE: Emergency DIAGNOSES: - Other insomnia - Chest Pain - Essential (primary) hypertension - Hyperglycemia, unspecified - Unspecified atrial fibrillation 07/23/2019 15:46 [facility] TYPE: Emergency DIAGNOSES: - Heart Palpitations 07/20/2019 10:10 [facility] [place] TYPE: Emergency COMPLAINT: - MULTIPLE COMPLAINTS 07/15/2019 12:14 [facility] TYPE: Emergency DIAGNOSES: - Diarrhea (Adult) - Noninfective gastroenteritis and colitis, unspecified - Type 2 diabetes mellitus with hyperglycemia - Failure to Thrive - Essential (primary) hypertension 07/06/2019 05:29 [facility] TYPE: Emergency DIAGNOSES: - Patient's other noncompliance with medication regimen - Hypertension - Urinary Complaint - Unspecified fall, initial encounter - Essential (primary) hypertension 07/03/2019 10:06 [facility] TYPE: Emergency DIAGNOSES: - Fever, unspecified - Chest Pain - Shortness of Breath - Fever (9 Weeks To 74 Years) - Sepsis, unspecified organism - Unspecified atrial fibrillation 05/15/2019 20:19 [facility] TYPE: Emergency DIAGNOSES: - Leg Deformity - Other abnormalities of gait and mobility - Contusion of right knee, initial encounter - continuous churn buttermaker (current) use of 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 - Fall - Unspecified fall, initial encounter 05/13/2019 11:15 [facility] TYPE: Emergency DIAGNOSES: - High Blood Sugar (Symptomatic) - continuous churn buttermaker (current) use of insulin - Type 2 diabetes mellitus with hyperglycemia 04/13/2019 20:40 [facility] TYPE: Emergency DIAGNOSES: - Other chest pain - Chest Pain - Type 2 diabetes mellitus with hyperglycemia - USP (current) use of insulin 04/13/2019 08:17 [facility] TYPE: Emergency DIAGNOSES: - Hyperglycemia, unspecified - High Blood Sugar (Symptomatic) 04/04/2019 04:12 [facility] TYPE: Emergency DIAGNOSES: - Chest pain, unspecified - Chest Pain 03/21/2019 17:09 [facility] TYPE: Emergency DIAGNOSES: - Hemoptysis - Dizziness - Type 2 diabetes mellitus with hyperglycemia - continuous churn buttermaker (current) use of 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 - Coughing Up Blood 02/01/2019 15:26 [facility] TYPE: Emergency COMPLAINT: - ELEVATED BLOOD SUGAR 02/01/2019 04:32 [facility] TYPE: Emergency COMPLAINT: - DIZZY 01/25/2019 06:53 [facility]ne [facility] TYPE: Emergency DIAGNOSES: - Headache - Hypertension - Headache (Adult - New Onset Or New Symptoms) - Dizziness Plus 8 More Visits INPATIENT VISIT TRACKING (12 MO.) 07/23/2019 15:46 [facility] TYPE: General Medicine DIAGNOSES: - Weakness - Pneumonitis due to inhalation of food and vomit - Paroxysmal atrial fibrillation - Heart Palpitations 07/20/2019 12:50 [facility] [place] TYPE: Critical Care COMPLAINT: - A-FIB RVR DIAGNOSES: - Personal history of pulmonary embolism - Type 2 diabetes mellitus with hyperglycemia - Other terminal block assembler (current) drug therapy - Essential (primary) hypertension - Gastro-esophageal reflux disease without esophagitis - Dehydration - Allergy status to other drugs, medicaments and biological sub - USP (current) use of insulin - Obstructive sleep [...] and cere - Permanent atrial fibrillation - continuous churn buttermaker (current) use of 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 07/03/2019 10:06 [facility] Medicine DIAGNOSES: - Chronic obstructive pulmonary disease, unspecified - Unspecified atrial fibrillation - Unspecified lack of expected normal physiological development - Sepsis, unspecified organism - Bacteremia - Fever, unspecified - Type 2 diabetes mellitus with hyperglycemia 10/11/2018 18:01 [facility] DIAGNOSES: - continuous churn buttermaker (current) use of 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 - USP (current) use of insulin - Type 2 diabetes mellitus with hyperglycemia - Syncope and collapse - Allergy status to unspecified drugs, medicaments and biologic - Chest pain, unspecified - Other chest pain - Essential (primary) hypertension [email or web address]
--- NOTE | 2019-10-12 21:48 | EKG ---
[facility] [address] [place] [address] Signed Normal sinus rhythm Possible Left atrial enlargement Borderline ECG When compared with ECG of 09-SEP-2019 22:35, Sinus rhythm has replaced Atrial fibrillation Vent. rate has decreased BY 53 BPM Non-specific change in ST segment in Inferior leads Non-specific change in ST segment in Anterolateral leads T wave inversion no longer evident in Inferior leads T wave inversion no longer evident in Lateral leads Confirmed by HANNAH ROSALES MD ([id number]) on 10/12/2019 9:48:42 PM Electronically Signed By: HANNAH ROSALES MD 10/12/19 2148 PATIENT NAME: NORAH GR Electrocardiogram DATE OF : 53 PHYSICIAN: HANNAH ROSALES MD REPORT #: [id number] REPORT IS CONFIDENTIAL AND NOT TO BE RELEASED WITHOUT AUTHORIZATION
== END 2019-10-12 20:00 | disposition home or self-care (01) ==
LOC: ED 17:29
DX: S09.90XA Unspecified injury of head, initial encounter (principal); E11.65 Type 2 diabetes mellitus with hyperglycemia; I11.0 Hypertensive heart disease with heart failure; I50.9 Heart failure, unspecified; I48.91 Unspecified atrial fibrillation; Z88.8 Allergy status to other drugs, medicaments and biological substances; Z79.899 Other long term (current) drug therapy; Z79.01 Long term (current) use of 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; Z79.4 Long term (current) use of insulin; W19.XXXA Unspecified fall, initial encounter; Y92.59 Other trade areas as the place of occurrence of the external cause
CPT/HCPCS: 70450; 72125; 80053; 83735; 84484; 85025; 85610; 93005; 93010; 96361; 96374; 99285-25; G0480; J1815; J7030